=== PATIENT | female | born 1990 | race American Indian/Alaskan Native ===

== ENCOUNTER 2017-07-24 13:25 | Emergency (ER) | payer BC, OTHER ==
[2017-07-24 13:34] VITALS: BP 131/65
[2017-07-24 14:37] LABS: Basophils % (Auto) 0.5 % (0.0-1.8); Eosinophils % (Auto) 0.3 % (0.0-4.3); Hematocrit 34.7 % (30.3-42.9); Hemoglobin 10.7 gm/dl (10.1-14.3); Mean Corpuscular HGB Conc 31 % (30-34); Mean Corpuscular Hemoglobin 21 pg (28-32); Mean Corpuscular Volume 67 fl (79-97); Platelet Count 272 K/mm3 (140-440); Red Blood Count 5.17 M/mm3 (3.65-5.03); Red Cell Distribution Width 20.1 % (13.2-15.2); White Blood Count 8.4 K/mm3 (4.5-11.0)
[2017-07-24 14:45] LABS: Alanine Aminotransferase 9 units/L (7-56); Albumin 4.1 g/dL (3.9-5); Albumin/Globulin Ratio 1.2 %; Alkaline Phosphatase 96 units/L (35-129); Anion Gap 18 mmol/L; BUN/Creatinine Ratio 14; Blood Urea Nitrogen 10 mg/dL (7-17); Calcium 9.2 mg/dL (8.4-10.2); Carbon Dioxide 21 mmol/L (22-30); Chloride 103.4 mmol/L (98-107); Glucose 93 mg/dL (65-100); Lipase 46 units/L (13-60); Potassium 4.2 mmol/L (3.6-5.0); Sodium 138 mmol/L (137-145); Total Protein 7.6 g/dL (6.3-8.2)
[2017-07-24 15:02] LABS: Bilirubin,Urine NEG (Negative); Blood,Urine MOD (Negative); Ketones,Urine NEG (Negative); Mucus,Urine FEW /HPF; Nitrite,Urine NEG (Negative); Protein,Urine <15 mg/dL mg/dL (Negative); Urobilinogen,Urine < 2.0 mg/dL (<2.0)
[2017-07-24 15:28] LABS: Bacteria,Urine 1+ /HPF (Negative); Leukocyte Esterase,Urine TR (Negative)
--- NOTE | 2017-07-24 17:34 | Emergency Department Report ---
ED Abdominal Pain HPI - General Chief Complaint: Abdominal Pain Stated Complaint: POSS UTI Time Seen by Provider: 07/24/17 17:01 Source: patient Mode of arrival: Ambulatory Limitations: No Limitations - History of Present Illness Initial Comments: 27-year-old female presents to the ED complaining about low back pain and lower abdominal pain with dysuria and urgency. States that symptoms started last night. States that she believes she may have a UTI. States that she also has frequency. Denies fever, flank pain, nausea, vomiting, diarrhea, vaginal bleeding, vaginal discharge. Denies taking medication. -: Gradual, days(s) (1) - Related Data Previous Rx's Medication Instructions Recorded Last Taken Type Ciprofloxacin HCl [Cipro] 500 mg PO BID #14 tablet 07/24/17 Unknown Rx Cyclobenzaprine [Flexeril] 10 mg PO TID PRN #20 tablet 07/24/17 Unknown Rx Ibuprofen [Motrin] 600 mg PO Q8H PRN #20 tablet 07/24/17 Unknown Rx Allergies Allergy/AdvReac Type Severity Reaction Status Date / Time egg Allergy Vomiting Verified 07/24/17 13:34 Sulfa (Sulfonamide Allergy Unknown Verified 07/24/17 13:34 Antibiotics) ED Review of Systems ROS: Stated complaint: POSS UTI Other details as noted in HPI Constitutional: denies: chills, fever Eyes: denies: eye pain, eye discharge, vision change ENT: denies: ear pain, throat pain Respiratory: denies: cough, shortness of breath, wheezing Cardiovascular: denies: chest pain, palpitations Endocrine: no symptoms reported Gastrointestinal: abdominal pain. denies: nausea, diarrhea Genitourinary: dysuria. denies: urgency, discharge Musculoskeletal: back pain. denies: joint swelling, arthralgia Skin: denies: rash, lesions Neurological: denies: headache, weakness, paresthesias Psychiatric: denies: anxiety, depression Hematological/Lymphatic: denies: easy bleeding, easy bruising ED Past Medical Hx - Past Medical History Previous Medical History?: Yes Additional medical history: MIGRAINES, PCOS - Surgical History Past Surgical History?: Yes Additional Surgical History: C SECTION X3, ENOC - Social History Smoking Status: Never Smoker Substance Use Type: Alcohol - Medications Home Medications: Home Medications Medication Instructions Recorded Confirmed Last Taken Type Ciprofloxacin HCl [Cipro] 500 mg PO BID #14 tablet 07/24/17 Unknown Rx Cyclobenzaprine [Flexeril] 10 mg PO TID PRN #20 tablet 07/24/17 Unknown Rx Ibuprofen [Motrin] 600 mg PO Q8H PRN #20 tablet 07/24/17 Unknown Rx ED Physical Exam - General Limitations: No Limitations General appearance: alert, in no apparent distress - Head Head exam: Present: atraumatic, normocephalic - Eye Eye exam: Present: normal appearance - ENT ENT exam: Present: mucous membranes moist - Neck Neck exam: Present: normal inspection - Respiratory Respiratory exam: Present: normal lung sounds bilaterally. Absent: respiratory distress - Cardiovascular Cardiovascular Exam: Present: regular rate, normal rhythm. Absent: systolic murmur, diastolic murmur, rubs, gallop - GI/Abdominal GI/Abdominal exam: Present: soft, tenderness (suprapubic), normal bowel sounds. Absent: distended, guarding, rebound, rigid - Extremities Exam Extremities exam: Present: normal inspection - Back Exam Back exam: Present: normal inspection, paraspinal tenderness. Absent: CVA tenderness (R), CVA tenderness (L), muscle spasm, vertebral tenderness - Neurological Exam Neurological exam: Present: alert, oriented X3 - Psychiatric Psychiatric exam: Present: normal affect, normal mood - Skin Skin exam: Present: warm, dry, intact, normal color. Absent: rash ED Course Vital Signs 07/24/17 13:31 Temperature 97.5 F L Pulse Rate 90 Respiratory 18 Rate Blood Pressure 131/65 O2 Sat by Pulse 99 Oximetry ED Medical Decision Making - Lab Data Result diagrams: 07/24/17 14:05 07/24/17 14:05 Vital Signs 07/24/17 13:31 Temperature 97.5 F L Pulse Rate 90 Respiratory 18 Rate Blood Pressure 131/65 O2 Sat by Pulse 99 Oximetry Laboratory Results - last 24 hr 07/24/17 07/24/17 07/24/17 14:05 14:05 Unknown WBC 8.4 RBC 5.17 H Hgb 10.7 Hct 34.7 MCV 67 L MCH 21 L MCHC 31 RDW 20.1 H Plt Count 272 Lymph % (Auto) 33.8 Casey % (Auto) 6.9 Eos % (Auto) 0.3 Baso % (Auto) 0.5 Lymph # 2.8 Casey # 0.6 Eos # 0.0 Baso # 0.0 Seg Neutrophils % 58.5 Seg Neutrophils # 4.9 Sodium 138 Potassium 4.2 Chloride 103.4 Carbon Dioxide 21 L Anion Gap 18 BUN 10 Creatinine 0.7 Estimated GFR > 60 BUN/Creatinine Ratio 14 Glucose 93 Calcium 9.2 Total Bilirubin 0.70 AST 30 ALT 9 Alkaline Phosphatase 96 Total Protein 7.6 Albumin 4.1 Albumin/Globulin Ratio 1.2 Lipase 46 Urine Color Yellow Urine Turbidity Clear Urine pH 6.0 Ur Specific [place] 1.019 Urine Protein <15 mg/dl Urine Glucose (UA) Neg Urine Ketones Neg Urine Blood Mod Urine Nitrite Neg Urine Bilirubin Neg Urine Urobilinogen < 2.0 Ur Leukocyte Esterase Tr Urine WBC (Auto) 1.0 Urine RBC (Auto) 1.0 U Epithel Cells (Auto) 11.0 Urine Bacteria (Auto) 1+ Urine Mucus Few Urine HCG, Qual Negative - Medical Decision Making Patient is resting comfortably at this time. Tenderness was only to the lower back and flank area. Very minimal tenderness to the lower abdomen. Chin has 1 + leukocyte in her urine with hematuria. Will start on Cipro as patient is requesting treatment for UTI. No acute distress at this time. - Differential Diagnosis pyelo, kidney stone Critical care attestation.: If time is entered above; I have spent that time in minutes in the direct care of this critically ill patient, excluding procedure time. ED Disposition Clinical Impression: Low back pain, Hematuria, Dysuria Disposition: DC-01 TO HOME OR SELFCARE Is pt being admited?: No Does the pt Need Aspirin: No Condition: Good Instructions: Abdominal Pain (ED) Prescriptions: Ciprofloxacin HCl [Cipro] 500 mg PO BID #14 tablet Cyclobenzaprine [Flexeril] 10 mg PO TID PRN #20 tablet PRN Reason: Muscle Spasm Ibuprofen [Motrin] 600 mg PO Q8H PRN #20 tablet PRN Reason: Pain Referrals: PRIMARY CARE, [Primary Care Provider] - 3-5 Days Forms: Work/School Release Form(ED) Time of Disposition: 17:37
== END 2017-07-24 17:43 | disposition home or self-care (01) ==
LOC: ED 13:25
DX: M54.5 Low back pain (principal); R31.9 Hematuria, unspecified; R30.0 Dysuria; Z88.2 Allergy status to sulfonamides; Z91.012 Allergy to eggs
CPT/HCPCS: 36415; 80053; 81001; 81025; 83690; 85025; 99283

== ENCOUNTER 2017-08-15 08:15 | Emergency (ER) | payer BC ==
[2017-08-15 08:57] LABS: Basophils % (Auto) 0.3 % (0.0-1.8); Eosinophils % (Auto) 0.8 % (0.0-4.3); Hematocrit 36.4 % (30.3-42.9); Hemoglobin 11.4 gm/dl (10.1-14.3); Mean Corpuscular HGB Conc 31 % (30-34); Platelet Count 296 K/mm3 (140-440); Red Blood Count 5.32 M/mm3 (3.65-5.03)
[2017-08-15 09:13] LABS: Alanine Aminotransferase 12 units/L (7-56); Alkaline Phosphatase 96 units/L (35-129); Anion Gap 20 mmol/L; BUN/Creatinine Ratio 23; Blood Urea Nitrogen 14 mg/dL (7-17); Calcium 8.7 mg/dL (8.4-10.2); Carbon Dioxide 18 mmol/L (22-30); Chloride 102.4 mmol/L (98-107); Glucose 86 mg/dL (65-100); Lipase 60 units/L (13-60); Potassium 4.1 mmol/L (3.6-5.0); Sodium 136 mmol/L (137-145); Total Protein 7.9 g/dL (6.3-8.2)
[2017-08-15 09:16] LABS: Mean Corpuscular Hemoglobin 21 pg (28-32); Mean Corpuscular Volume 68 fl (79-97); Red Cell Distribution Width 20.6 % (13.2-15.2)
[2017-08-15 09:45] LABS: Bilirubin,Urine NEG (Negative); Blood,Urine SM (Negative); Ketones,Urine NEG (Negative); Leukocyte Esterase,Urine NEG (Negative); Nitrite,Urine NEG (Negative); Protein,Urine <15 mg/dL mg/dL (Negative); Urobilinogen,Urine < 2.0 mg/dL (<2.0); WBC,Urine < 1.0 /HPF (0.0-6.0)
--- NOTE | 2017-08-15 10:09 | Emergency Department Report ---
Chief Complaint: Abdominal Pain Stated Complaint: ABDOMINAL PAIN Time Seen by Provider: 08/15/17 10:05 - HPI History of Present Illness: 27-year-old female with a history of gallbladder removal in 2014 presents to the ED complaining of generalized upper abdominal pain times 6 AM this morning. Patient reports eating dinner last night with no problem. She states watery nonbloody diarrhea about 4 episodes today she admits nausea She denies fevers/chills/dysuria/vaginal bleeding - ROS Review of Systems: See HPI - Exam Vital Signs: Vital Signs 08/15/17 08:20 Temperature 98.2 F Pulse Rate 75 Respiratory 18 Rate Blood Pressure 119/71 O2 Sat by Pulse 98 Oximetry Physical Exam: GENERAL: Alert and oriented x3, mild distress, Normal Gait, atraumatic. ABDOMEN: No organomegaly was noted,Positive bowel sounds, soft, and non- distended. . tender to palpation on left and right upper quadrant NO CVA tenderness. SKIN: Warm and dry, No lesions, No ulceration or induration present. MSE screening note: Focused history and physical exam performed. Due to findings the following was ordered: ED Medical Decision Making - Lab Data Result diagrams: 08/15/17 08:41 08/15/17 08:41 - Medical Decision Making Labs and normal limit, chemistry, low sodium Abdominal ultrasound ordered. Zofran and Tylenol ordered Patient waited to be seen by ED physician ED Disposition for MSE Condition: Stable Instructions: Abdominal Pain (ED) Referrals: PRIMARY CARE, [Primary Care Provider] - 3-5 Days
[2017-08-15] MEDS: TYLENOL PO ONE (10:29)
[2017-08-15] MEDS: ZOFRAN ODT PO ONE (10:30)
--- NOTE | 2017-08-15 11:20 | Ultrasound Report ---
ULTRASOUND ABDOMEN COMPLETE INDICATION: Abdominal pain. Cholecystectomy in 2015. COMPARISON: None similar at this institution. FINDINGS: Abdominal ultrasound demonstrates normal imaged liver, approximately 17.5 cm craniocaudal. Gallbladder surgically absent. Patient though tender during imaging. CBD is 3.5 mm. Homogenous spleen, 8.4 cm in length. No ascites. Pancreas, IVC and nonaneurysmal abdominal aorta within normal limits. No hydronephrosis. Right kidney is 10.2 x 4.7 x 4 cm with cortical thickness of 0.7 cm. Left kidney is 10 x 5.9 x 5.3 cm with cortical thickness of 1.1 cm. CONCLUSION: No acute abdominal sonographic abnormality in this patient with prior cholecystectomy. Patient though demonstrated tenderness during examination. Please correlate. Thank you for the opportunity to participate in this patient's care.
--- NOTE | 2017-08-15 11:37 | Emergency Department Report ---
ED Abdominal Pain HPI - General Chief Complaint: Abdominal Pain Stated Complaint: ABDOMINAL PAIN Time Seen by Provider: 08/15/17 10:00 Source: patient Mode of arrival: Ambulatory Limitations: No Limitations - History of Present Illness Initial Comments: 27 yo female with c/o abdominal pain that began at 0630 this am. She was nauseated and did not vomit but had 4 bowel movements that were grainey in texture. SHE HAD HER GALLBLADDER REMOVED ABOUT 3YRS AGO AND SAYS THAT THIS IS THE SAME PAIN. MD Complaint: abdominal pain -: Sudden, hour(s) (3.5) Location: RUQ Radiation: none Migration to: no migration Severity: moderate Severity scale (0 -10): 6 Quality: aching, dull Consistency: intermittent Improves With: rest Worsens With: movement, other (PALPATION) Associated Symptoms: nausea. denies: vomiting, diarrhea, fever, chills, hematemesis, hematochezia, melena, hematuria, anorexia, syncope - Related Data Home Medications Medication Instructions Recorded Confirmed Last Taken Cyclobenzaprine [Flexeril] 10 mg PO DAILY PRN 08/15/17 08/15/17 Unknown Norethindrone-Ethinyl Estrad 1 each PO DAILY 08/15/17 08/15/17 Unknown [Balziva] Previous Rx's Medication Instructions Recorded Last Taken Type Dicyclomine [Bentyl] 20 mg PO QID #14 tablet 08/15/17 Unknown Rx Allergies Allergy/AdvReac Type Severity Reaction Status Date / Time egg Allergy Vomiting Verified 07/24/17 13:34 ibuprofen Allergy Hives Verified 07/24/17 13:22 Sulfa (Sulfonamide Allergy Unknown Verified 07/24/17 13:34 Antibiotics) ED Review of Systems ROS: Stated complaint: ABDOMINAL PAIN Other details as noted in HPI Constitutional: denies: chills, fever Eyes: denies: eye pain, eye discharge, vision change ENT: denies: ear pain, throat pain Respiratory: denies: cough, shortness of breath, wheezing Cardiovascular: denies: chest pain, palpitations Endocrine: no symptoms reported Gastrointestinal: nausea, other (4 grainey bowel movement). denies: abdominal pain, vomiting, diarrhea Genitourinary: denies: urgency, dysuria, discharge Musculoskeletal: denies: back pain, joint swelling, arthralgia Skin: denies: rash, lesions Neurological: denies: headache, weakness, paresthesias Psychiatric: denies: anxiety, depression Hematological/Lymphatic: denies: easy bleeding, easy bruising ED Past Medical Hx - Past Medical History Hx GERD: Yes Additional medical history: MIGRAINES, PCOS - Surgical History Additional Surgical History: C SECTION X3, ENOC - Social History Smoking Status: Never Smoker Substance Use Type: Alcohol - Medications Home Medications: Home Medications Medication Instructions Recorded Confirmed Last Taken Type Cyclobenzaprine [Flexeril] 10 mg PO DAILY PRN 08/15/17 08/15/17 Unknown History Dicyclomine [Bentyl] 20 mg PO QID #14 tablet 08/15/17 Unknown Rx Norethindrone-Ethinyl Estrad 1 each PO DAILY 08/15/17 08/15/17 Unknown History [Balziva] ED Physical Exam - General Limitations: No Limitations General appearance: alert, in no apparent distress - Head Head exam: Present: atraumatic, normocephalic - Eye Eye exam: Present: normal appearance, EOMI. Absent: scleral icterus, conjunctival injection - ENT ENT exam: Present: mucous membranes moist - Neck Neck exam: Present: normal inspection, full ROM - Respiratory Respiratory exam: Present: normal lung sounds bilaterally. Absent: respiratory distress, wheezes, rales, decreased breath sounds, prolonged expiratory - Cardiovascular Cardiovascular Exam: Present: regular rate, normal rhythm, normal heart sounds - GI/Abdominal GI/Abdominal exam: Present: soft, tenderness (right upper quadrant), guarding, normal bowel sounds, hernia (ventral hernia-large). Absent: rebound, rigid, mass, bruit, pulsatile mass - Rectal Rectal exam: Present: deferred - Back Exam Back exam: Present: normal inspection, full ROM, other (tattoo) - Neurological Exam Neurological exam: Present: alert, oriented X3, CN II-XII intact - Psychiatric Psychiatric exam: Present: normal affect, normal mood - Skin Skin exam: Present: warm, dry, intact, normal color, other (tattoos). Absent: rash ED Course Vital Signs 08/15/17 08/15/17 08/15/17 08:20 10:29 11:33 Temperature 98.2 F Pulse Rate 75 61 Respiratory 18 20 Rate Blood Pressure 119/71 Blood Pressure 101/72 [Left] O2 Sat by Pulse 98 Oximetry 10/31/17 14:40 Temperature Pulse Rate 62 Respiratory 18 Rate Blood Pressure Blood Pressure 109/64 [Left] O2 Sat by Pulse 97 Oximetry ED Medical Decision Making - Lab Data Result diagrams: 08/15/17 08:41 08/15/17 08:41 - Radiology Data Radiology results: report reviewed (CT ABD/PELVIS; NEGATIVE ; US OF RUQ: NEGATIVE V/Q SCAN ; NORMAL LUNGS) - Medical Decision Making CT OF ABD/PELVIS NEGATIVE WELL US OF RUQ AND ELEVATED DDIMER MIN S NORMAL V /Q SCAN Critical care attestation.: If time is entered above; I have spent that time in minutes in the direct care of this critically ill patient, excluding procedure time. ED Disposition Clinical Impression: Abdominal pain Qualifiers: Abdominal location: right upper quadrant Qualified Code(s): R10.11 - Right upper quadrant pain Disposition: DC-01 TO HOME OR SELFCARE Is pt being admited?: No Does the pt Need Aspirin: No Condition: Stable Instructions: Abdominal Pain (ED) Prescriptions: Dicyclomine [Bentyl] 20 mg PO QID #14 tablet Referrals: PRIMARY CARE, [Primary Care Provider] - 3-5 Days Forms: Work/School Release Form(ED) Time of Disposition: 18:33
[2017-08-15] MEDS ORDERED: NACL 0.9% 1000 ML 1,000 ML ONE (11:39)
[2017-08-15] MEDS: NACL 0.9% 1000 ML 1,000 ML IV ONE (11:39)
[2017-08-15] MEDS: MORPHINE IV ONE ×2 (12:15→18:43)
--- NOTE | 2017-08-15 12:58 | Cat Scan Report ---
CT SCAN OF THE ABDOMEN AND PELVIS WITH CONTRAST: HISTORY: Right upper quadrant abdominal pain. TECHNIQUE: Helical CT in 1.25mm intervals following IV contrast. Sagittal and coronal reconstructions. FINDINGS: The liver is normal in size and is without focal defect. No gallstones or biliary dilatation are noted. Cholecystectomy changes. The spleen and pancreas demonstrate a normal size and attenuation with no evidence of abnormal mass. The kidneys are normal in size and position with no evidence of hydronephrosis or mass. The adrenal glands are normal. The abdominal aorta is normal. The bowel loops are within normal limits given no oral contrast was administered. No evidence for obstruction or focal inflammation. The appendix is not confidently identified. The uterus and adnexa are within normal limits. There is no evidence of peritoneal air or fluid. There is no evidence of any abnormal masses or fluid collections within the pelvis. No adenopathy is identified. The bladder is normal. IMPRESSION: Unremarkable CT scan of the abdomen and pelvis with contrast.
[2017-08-15 14:41] VITALS: BP 109/64
--- NOTE | 2017-08-15 18:16 | Nuclear Medicine Report ---
FINAL REPORT PROCEDURE: Nuclear medicine ventilation and perfusion lung scan. TECHNIQUE: Ventilation imaging was done in the posterior projection using 15 millicuries of xenon 133 gas. Perfusion imaging was done in multiple projections using 5 millicuries of technetium 99 M maa. HISTORY: Elevated D-dimer, rule out pulmonary embolism. COMPARISON: Comparison chest radiograph 08/15/2017. FINDINGS: There is symmetrical, homogeneous ventilation bilaterally. There is no trapping of xenon gas during the washout phase of the study. The perfusion images are also homogeneous. There are no perfusion defects identified. The lung scan is normal and carries an extremely low probability of pulmonary embolism. IMPRESSION: Normal lung scan.
--- NOTE | 2017-08-16 07:10 | XRay Report ---
Chest 2 views: History: Epigastric pain. Findings: Normal cardiomediastinal silhouette. Trachea is midline. No consolidation, pneumothorax or pleural effusion. Impression: No acute cardiopulmonary findings
== END 2017-08-15 19:06 | disposition home or self-care (01) ==
LOC: ED 08:15
DX: R10.11 Right upper quadrant pain (principal); K21.9 Gastro-esophageal reflux disease without esophagitis; G43.909 Migraine, unspecified, not intractable, without status migrainosus; Z88.2 Allergy status to sulfonamides; Z88.8 Allergy status to other drugs, medicaments and biological substances; Z91.012 Allergy to eggs
CPT/HCPCS: 36415; 71020; 74177; 76700; 78582; 80053; 81001; 83690; 84703; 85025; 85379; 96361; 96374; 96376; 99284; A9540; A9558; J2270; J7030; Q9967; Q0162

== ENCOUNTER 2017-12-13 08:29 | Day surgery (SDC) | payer BC ==
[2017-12-13] MEDS ORDERED: NACL 0.9% 1000 ML 1,000 ML IV SCH (09:00)
[2017-12-13] MEDS ORDERED: WATER FOR IRRIG STERILE IR ONE (09:04)
[2017-12-13] MEDS ORDERED: DIPRIVAN 10 MG/ML IV ONE (10:14)
[2017-12-13] MEDS ORDERED: ZOFRAN ONE (10:19)
--- NOTE | 2017-12-13 10:29 | Post Operative Note ---
Pre-op diagnosis: intractable nausea, abdominal pain Post-op diagnosis: other (mild duodenitis, otherwise unremarkable egd) Findings: EGD with biopsies: Mild erythematous mucosa in duodenum, otherwise unremarkable egd. gastric biopsied obtained to rule out h pylori. Procedure: EGD with biopsies Anesthesia: MAC Surgeon: THERESA ANGLIN Estimated blood loss: minimal Pathology: list (Jar A - gastric biopsies) Specimen disposition: to lab Condition: stable Disposition: same day
--- NOTE | 2017-12-13 10:32 | Operative Report ---
Operative Report Operative Report: Esophagogastroduodenoscopy Procedure Report with Biopsies Date of procedure: 12/13/2017 Endoscopist: Miguel Burns Pre-op diagnosis/indication: intractable nausea, abdominal pain Post-op diagnosis: Mild duodenitis, otherwise unremarkable upper endoscopy MEDICATIONS: MAC COMPLICATIONS: No immediate complications ESTIMATED BLOOD LOSS: minimal DESCRIPTION OF PROCEDURE: After consent was obtained, the patient was placed in the left lateral decubitis position. The upper fujinon endoscope was passed with direct vision through the mouth and advanced to the 2nd portion of the duodenum without difficulty. The mucosal views were good. The patient tolerated the procedure well. The patient's vital signs were monitored continuously throughout the procedure. FINDINGS: The esophagus appeared normal. The stomach appeared normal. Random gastric biopsies were obtained to evaluate for H pylori. Mild erythematous mucosa in the 2nd portion of duodenum, otherwise the duodenum appeared normal. No evidence of gastric outlet obstruction of peptic ulcer disease. IMPRESSION: 1. Mild duodenitis, otherwise unremarkable upper endoscopy. Gastric biopsies obtained to evaluate for H pylori. RECOMMENDATIONS: -follow-up pathology -continue current medications -further studies per clinic note -follow up as scheduled in GI clinic
--- NOTE | 2017-12-13 10:43 | Anesthesia Consultation ---
Anesthesia Consult and Med Hx Date of service: 12/13/17 - Airway Anesthetic Teeth Evaluation: Good ROM Head & Neck: Adequate Mental/Hyoid Distance: Adequate Mallampati Class: Class I Intubation Access Assessment: Good - Pulmonary Exam CTA: Yes - Cardiac Exam Cardiac Exam: RRR - Pre-Operative Health Status ASA Pre-Surgery Classification: ASA1 Proposed Anesthetic Plan: MAC - Pre-Anesthesia Comment Pre-Anesthesia Comments: Nausea - Hematic Hx Anemia: Yes
--- NOTE | 2017-12-13 10:43 | Anesthesia Day of Surgery ---
Anesthesia Day of Surgery - Day of Surgery Patient Examined: Yes Patient H&P Reviewed: Yes Patient is NPO: Yes
[2017-12-13 11:28] VITALS: BP 106/72
== END 2017-12-13 08:30 | disposition home or self-care (01) ==
LOC: GIO 08:29
PROVIDERS: ATTEND Internal Medicine Gastroenterology
DX: K29.80 Duodenitis without bleeding (principal); K21.9 Gastro-esophageal reflux disease without esophagitis; E66.9 Obesity, unspecified; Z68.36 Body mass index [BMI] 36.0-36.9, adult; Z88.2 Allergy status to sulfonamides; Z91.012 Allergy to eggs
CPT/HCPCS: 43239; 81025; 88305; 88342; J2405; J2704; J7030

== ENCOUNTER 2018-01-16 07:19 | Outpatient (CLI) | payer BC ==
--- NOTE | 2018-01-16 10:03 | Nuclear Medicine Report ---
NUCLEAR MEDICINE GASTRIC EMPTYING SCAN History: Abdominal pain. Findings: Anterior scintigraphic images were obtained for 90 minutes following 1 mCi of technetium 99m sulfur colloid in oatmeal. Half life for gastric emptying measures 50 minutes. There is no scintigraphic evidence for reflux disease. Impression: Normal gastric emptying.
== END 2018-01-16 07:20 | disposition home or self-care (01) ==
LOC: NM 07:19
PROVIDERS: ATTEND Internal Medicine Gastroenterology
DX: K59.00 Constipation, unspecified (principal); E66.9 Obesity, unspecified
CPT/HCPCS: 78264; A9541

== ENCOUNTER 2018-05-02 14:04 | Outpatient (CLI) | payer BC ==
--- NOTE | 2018-05-02 15:38 | Magnetic Resonance Report ---
MRI THORACIC SPINE WITHOUT CONTRAST HISTORY: Chronic pain syndrome, radiculopathy. TECHNIQUE: Axial T1 and T2. Sagittal T1, T2 and STIR. COMPARISON: None. FINDINGS: The thoracic spinal cord is normal size and signal intensity throughout. The conus terminates at the inferior endplate of L1. No signal abnormality or mass. No bulging disc or canal stenosis. The thoracic vertebral bodies, disc spaces, posterior elements, spinal canal and neural foramen are unremarkable. Normal paraspinal soft tissues. IMPRESSION: Normal MRI of the thoracic spine.
== END 2018-05-02 14:05 | disposition home or self-care (01) ==
LOC: MRI 14:04
PROVIDERS: ATTEND Anesthesiology Pain Medicine
DX: M54.14 Radiculopathy, thoracic region (principal); G89.4 Chronic pain syndrome; D64.9 Anemia, unspecified
CPT/HCPCS: 72146

== ENCOUNTER 2018-05-10 08:51 | Emergency (ER) | payer BC ==
[2018-05-10 09:00] VITALS: BP 115/80
--- NOTE | 2018-05-10 10:13 | Emergency Department Report ---
Abscess Boil HPI - HPI Chief Complaint: Skin/Abscess/Foreign Body Stated Complaint: KNOT BEHIND EAR Time Seen by Provider: 05/10/18 10:12 Duration: Today Location: Head (left posterior) Severity: Moderate (05/25) History: Yes Pain (10), No Fever, No Purulent Drainage, No Numbness, No Foreign Body, No Previous History, No Insect Bite HPI: This is a 27-year-old female here reports that she has posterior left ear pain that started a couple days ago. She says is radiating up her left head., Reports some dizziness. Reports swollen without any redness. Denies any fever or chills. Denies any nausea or vomiting. No alleviating factors. Exacerbating factor is touching. Home Medications: Home Medications Medication Instructions Recorded Confirmed Last Taken Cyclobenzaprine [Flexeril] 10 mg PO DAILY PRN 08/15/17 12/13/17 Unknown Norethindrone-Ethinyl Estrad 1 each PO DAILY 08/15/17 12/13/17 Unknown [Domonique] Cymbalta 60 mg PO DAILY 12/13/17 12/13/17 12/12/17 Hydrocodon-Acetamin 7.5-325/15 1 tab PO PRN PRN 12/13/17 12/13/17 12/12/17 Linzess 145 mg PO DAILY 12/13/17 12/13/17 12/12/17 Protonix TAB 40 mg PO DAILY 12/13/17 12/13/17 12/12/17 Xanax 1 mg PO PRN PRN 12/13/17 12/13/17 12/09/17 traZODone 200 mg PO HS 12/13/17 12/13/17 12/11/17 Previous Rx's Medication Instructions Recorded Last Taken Type Dicyclomine [Bentyl] 20 mg PO QID #14 tablet 08/15/17 Unknown Rx Omeprazole Magnesium [Prilosec Otc] 20 mg PO QDAY #10 tablet.dr 08/15/17 Unknown Rx Sucralfate [Carafate] 1 gm PO Q6HR #60 udc 08/15/17 Unknown Rx Acetaminophen/Codeine [Tylenol 1 tab PO Q6H PRN #14 tab 05/10/18 Unknown Rx /Codeine # 3 tab] Cephalexin [Keflex] 500 mg PO Q8HR 10 Days #30 cap 05/10/18 Unknown Rx Allergies/Adverse Reactions: Allergies Allergy/AdvReac Type Severity Reaction Status Date / Time egg Allergy Vomiting Verified 07/24/17 13:34 ibuprofen Allergy Hives Verified 07/24/17 13:22 Sulfa (Sulfonamide Allergy Unknown Verified 12/13/17 08:35 Antibiotics) ED Review of Systems ROS: Stated complaint: KNOT BEHIND EAR Other details as noted in HPI Constitutional: denies: chills, fever Eyes: denies: eye pain, eye discharge, vision change ENT: ear pain. denies: throat pain, congestion Respiratory: denies: cough, shortness of breath, SOB with exertion, SOB at rest , wheezing Cardiovascular: denies: chest pain, palpitations, edema, syncope Gastrointestinal: denies: abdominal pain, nausea, diarrhea Musculoskeletal: denies: back pain, joint swelling, arthralgia Skin: other (report abscess to the posterior left ear). denies: rash, lesions Neurological: paresthesias, vertigo. denies: headache, weakness ED Past Medical Hx - Past Medical History Previous Medical History?: Yes Hx GERD: Yes Additional medical history: MIGRAINES, PCOS, fibromylagia - Surgical History Past Surgical History?: Yes Hx Cholecystectomy: Yes Additional Surgical History: C SECTION X3, ENOC - Family History Family history: hypertension - Social History Smoking Status: Never Smoker Substance Use Type: Alcohol - Medications Home Medications: Home Medications Medication Instructions Recorded Confirmed Last Taken Type Cyclobenzaprine [Flexeril] 10 mg PO DAILY PRN 08/15/17 12/13/17 Unknown History Dicyclomine [Bentyl] 20 mg PO QID #14 tablet 08/15/17 12/13/17 Unknown Rx Norethindrone-Ethinyl Estrad 1 each PO DAILY 08/15/17 12/13/17 Unknown History [Balziva] Omeprazole Magnesium [Prilosec Otc] 20 mg PO QDAY #10 tablet. 08/15/17 Unknown Rx Sucralfate [Carafate] 1 gm PO Q6HR #60 udc 08/15/17 12/13/17 Unknown Rx Cymbalta 60 mg PO DAILY 12/13/17 12/13/17 12/12/17 History Hydrocodon-Acetamin 7.5-325/15 1 tab PO PRN PRN 12/13/17 12/13/17 12/12/17 History Linzess 145 mg PO DAILY 12/13/17 12/13/17 12/12/17 History Protonix TAB 40 mg PO DAILY 12/13/17 12/13/17 12/12/17 History Xanax 1 mg PO PRN PRN 12/13/17 12/13/17 12/09/17 History traZODone 200 mg PO HS 12/13/17 12/13/17 12/11/17 History Acetaminophen/Codeine [Tylenol 1 tab PO Q6H PRN #14 tab 05/10/18 Unknown Rx /Codeine # 3 tab] Cephalexin [Keflex] 500 mg PO Q8HR 10 Days #30 cap 05/10/18 Unknown Rx ED Abscess Boil Physical Exam - Exam General: Vital signs noted. No distress. Alert and acting appropriately. This is a 27-year-old female here, well-nourished well-developed distress. Front/Back of Body, Lg (Color): 1 - 2 cm indurated, minimal fluctuance to the occipital area. Tender to palpate without any erythema. No crest then. Size: 2 cm Exam: Yes Tenderness (posterior distal occipital area), Yes Fluctuance (minimal) , Yes Normal Neurologic Exam (alert and oriented 3, normal gait and normal speech.), Yes Normal Circulation (No cce. + 2 pulses in all extremities, no neurovascular compromise), No Surrounding Cellulites/Erythema, No Lymphangitis, No Crepitation, No Heart Murmur (S1, S2. Regular rate) Exam: Mouth: Normal exam. Uvula midline and oral airways patent. Mouth is moist. Lungs: Clear to auscultate bilaterally, no rhonchi wheezes or rales. I & D Note - I & D Note I & D Note: Abscess: Simple abscess cleansed with normal saline and iodine followed by alcohol wipe. Small 20-gauge needle placed the site with patient's permission. Small opening made and clear fluid drained from the area. No further induration but some tenderness to palpate. Tetanus vaccine is updated. Area cleansed with normal saline and Band-Aid dressing placed the site and antibiotic Keflex started ED Course Vital Signs 05/10/18 08:57 Temperature 98.4 F Pulse Rate 79 Respiratory 17 Rate Blood Pressure 115/80 O2 Sat by Pulse 99 Oximetry - Reevaluation(s) Reevaluation #1: 05/10/18 11:29 Patient given Motrin 800 mg by mouth to relieve pain, posterior extension 0.5 mL to update tetanus and Keflex 500 mg by mouth Critical care attestation.: If time is entered above; I have spent that time in minutes in the direct care of this critically ill patient, excluding procedure time. ED Disposition Clinical Impression: Scalp cyst Disposition: [id number] TO HOME OR SELFCARE Is pt being admited?: No Does the pt Need Aspirin: No Condition: Stable Instructions: Skin Pseudocyst (ED) Additional Instructions: Please see discharge instruction in acute wound care Apply warm compresses to affected area 4 times a day to facilitate then and increased drainage Keep affected area clean and dry Take Tylenol 3 for pain but iplease do not drive or operate heavy machinery while taking this medication as it causes drowsiness Take Keflex as prescribed Return to the emergency room if, he developed fever, chills, increased pain and drainage from site, nausea and vomited, increase in redness and/or weakness. A Referrals: PRIMARY CAREMD [Primary Care Provider] - 05/11/18 Forms: Work/School Release Form(ED)
[2018-05-10] MEDS ORDERED: ULTRAM PO ONE (10:15)
[2018-05-10] MEDS ORDERED: KEFLEX ONE (10:19)
[2018-05-10] MEDS ORDERED: BOOSTRIX IM ONE ×2 (10:20→10:21)
[2018-05-10] MEDS ORDERED: KEFLEX PO ONE (10:21)
== END 2018-05-10 11:42 | disposition home or self-care (01) ==
LOC: ED 08:51
DX: L72.3 Sebaceous cyst (principal); K21.9 Gastro-esophageal reflux disease without esophagitis; G43.909 Migraine, unspecified, not intractable, without status migrainosus; Z90.49 Acquired absence of other specified parts of digestive tract; Z88.2 Allergy status to sulfonamides; Z88.6 Allergy status to analgesic agent; Z91.012 Allergy to eggs
CPT/HCPCS: 90471; 90715; 99282

== ENCOUNTER 2018-10-24 10:08 | Outpatient (CLI) | payer BC ==
--- NOTE | 2018-10-24 11:47 | Magnetic Resonance Report ---
MRI UPPER EXTREMITY JOINT LEFT WITHOUT CONTRAST HISTORY: Pain in left shoulder. TECHNIQUE: Multisequence, multiplanar MRI without contrast. COMPARISON: No relevant comparison at this facility. FINDINGS: The bone marrow signal throughout the visualized left shoulder is within normal limits. There is no evidence for fracture, bone lesion or abnormal bone marrow edema. No joint pathology is detected. There is minimal increased signal and thickening in the distal supraspinatus tendon at the level of the acromion. A small acromial spur is identified in this area. This appears to represent mild tendinosis of the distal supraspinatus tendon. No tear is identified. The subscapularis, infraspinatus and teres minor tendons are normal. The biceps tendon and its anchor upon the superior labrum is intact. No labral abnormality is detected. No joint effusion is identified. Trace fluid is noted in the subacromial bursa. IMPRESSION: Mild tendinosis of the distal supraspinatus tendon is suspected. No tear is appreciated. Small acromial spur. Trace fluid in the sub-acromial bursa.
== END 2018-10-24 10:09 | disposition home or self-care (01) ==
LOC: MRI 10:08
PROVIDERS: ATTEND Orthopaedic Surgery
DX: M75.82 Other shoulder lesions, left shoulder (principal); M77.9 Enthesopathy, unspecified; K21.9 Gastro-esophageal reflux disease without esophagitis; Z90.49 Acquired absence of other specified parts of digestive tract

== ENCOUNTER 2018-11-13 11:10 | Outpatient (CLI) | payer BC | END 2018-11-13 11:11 | disposition home or self-care (01) | LOC: LAB 11:10 | PROVIDERS: ATTEND Obstetrics & Gynecology | DX: Z01.419 Encounter for gynecological examination (general) (routine) without abnormal findings (principal); K21.9 Gastro-esophageal reflux disease without esophagitis; Z90.49 Acquired absence of other specified parts of digestive tract | CPT/HCPCS: 36415 ==

== ENCOUNTER 2019-02-25 17:55 | Emergency (ER) | payer BC ==
[2019-02-25 18:13] VITALS: BP 117/74
[2019-02-25] MEDS ORDERED: SOLU-Medrol IM ONE (19:31)
[2019-02-25] MEDS ORDERED: PEPCID PO ONE (19:32)
--- NOTE | 2019-02-25 20:16 | Emergency Department Report ---
HPI - General Chief Complaint: Allergic Reaction Time Seen by Provider: 02/25/19 19:10 - HPI HPI: Patient is a 28-year-old, AA female with a history of chronic IBS, depression, bipolar disorder, and fibromyalgia and presents to the ED with complaint of ac tracie onset persistent itchy diffuse erythematous maculopapular urticarial rashes in the last 3 days. Patient states that she has been taking Benadryl for itching but that the diffuse burning sensation has persisted. Patient states that initially she had facial swelling which has since resolved, but that the itching and burning sensation have been persistent. Patient states that the the rashes and itching are intermittent resolving whenever she takes Benadryl but continuously to flares up whenever Benadryl wears off. Patient denies shortness of breath, chest pain, nausea, vomiting, diarrhea, abdominal pain, dysphagia, dysphonia, swollen tongue, swollen lips, swollen throat, fever or chills. Patient states that the etiology of her symptoms is unknown but suspects a new medication that she began taking 4 days ago for IBS. ED Past Medical Hx - Past Medical History Previous Medical History?: Yes Hx GERD: Yes Hx Psychiatric Treatment: Yes (ADHD, anxiety) Additional medical history: MIGRAINES, PCOS, fibromylagia, IBS - Surgical History Past Surgical History?: Yes Hx Cholecystectomy: Yes Additional Surgical History: C SECTION X3 - Social History Smoking Status: Never Smoker Substance Use Type: Alcohol - Medications Home Medications: Home Medications Medication Instructions Recorded Confirmed Last Taken Type Cyclobenzaprine [Flexeril] 10 mg PO DAILY PRN 08/15/17 12/13/17 Unknown History Dicyclomine [Bentyl] 20 mg PO QID #14 tablet 08/15/17 12/13/17 Unknown Rx Norethindrone-Ethinyl Estrad 1 each PO DAILY 08/15/17 12/13/17 Unknown History [Balziva] Omeprazole Magnesium [Prilosec Otc] 20 mg PO QDAY #10 tablet. 08/15/17 Unknown Rx Sucralfate [Carafate] 1 gm PO Q6HR #60 udc 08/15/17 12/13/17 Unknown Rx Cymbalta 60 mg PO DAILY 12/13/17 12/13/17 12/12/17 History Hydrocodon-Acetamin 7.5-325/15 1 tab PO PRN PRN 12/13/17 12/13/17 12/12/17 History Linzess 145 mg PO DAILY 12/13/17 12/13/17 12/12/17 History Protonix TAB 40 mg PO DAILY 12/13/17 12/13/17 12/12/17 History Xanax 1 mg PO PRN PRN 12/13/17 12/13/17 12/09/17 History traZODone 200 mg PO HS 12/13/17 12/13/17 12/11/17 History Acetaminophen/Codeine [Tylenol 1 tab PO Q6H PRN #14 tab 05/10/18 Unknown Rx /Codeine # 3 tab] cephALEXin [Keflex] 500 mg PO Q8HR 10 Days #30 cap 05/10/18 Unknown Rx Topiramate [Topamax] 25 mg PO BID #14 tablet 09/11/18 Unknown Rx Topiramate [Topamax] 25 mg PO QHS #7 tablet 09/11/18 Unknown Rx HYDROcodone/APAP 5-325 [Crete 1 each PO Q6H PRN #12 tablet 09/19/18 Unknown Rx 5-325 mg TAB] Ranitidine HCl [Zantac] 150 mg PO Q12H #24 tablet 02/25/19 Unknown Rx methylPREDNISolone [Medrol] 4 mg PO DAILY #21 tab.ds.pk 02/25/19 Unknown Rx ED Review of Systems ROS: Stated complaint: ALLERGIC REACTION Other details as noted in HPI Comment: All other systems reviewed and negative Constitutional: no symptoms reported, see HPI. denies: chills, diaphoresis, fever, malaise, weakness Eyes: as per HPI. denies: eye pain, eye discharge, vision change ENT: as per HPI. denies: ear pain, throat pain, dental pain, hearing loss, epistaxis, congestion Respiratory: no symptoms reported, see HPI. denies: cough, orthopnea, shortness of breath, SOB with exertion, SOB at rest, stridor, wheezing Cardiovascular: as per HPI. denies: chest pain, palpitations, dyspnea on exertion, orthopnea, edema, paroxysmal nocturnal dyspnea Endocrine: no symptoms reported, see HPI. denies: excessive sweating, intolerance to cold, intolerance to heat, increased hunger, increased thirst, increased urine, unexplained weight loss Gastrointestinal: as per HPI. denies: abdominal pain, nausea, vomiting, diarrhea, constipation, hematemesis, hematochezia Genitourinary: as per HPI. denies: urgency, dysuria, frequency, hematuria, discharge, abnormal menses, dyspareunia Musculoskeletal: as per HPI. denies: back pain, joint swelling, arthralgia, myalgia Skin: as per HPI, rash, change in color, pruritus, other (Diffuse erythematous urticarial maculopapular rashes) Neurological: as per HPI. denies: headache, weakness, numbness, paresthesias, confusion, abnormal gait, vertigo Psychiatric: as per HPI Hematological/Lymphatic: as per HPI Physical Exam - Physical Exam Vital Signs: Vital Signs 02/25/19 18:09 Temperature 98 F Pulse Rate 67 Respiratory 15 Rate Blood Pressure 117/74 O2 Sat by Pulse 100 Oximetry General: Patient is alert and oriented 3, and is in no acute distress with normal vital signs. Physical Exam: Skin: Physical exam reveals mild diffuse erythematous maculopapular Urticarial rashes throughout. The rest of the physical exam is unremarkable for all systems Body Four View: 1 - diffuse erythematous urticarial rashes 2 - Diffuse erythematous maculopapular urticarial rashes ED Course Vital Signs 02/25/19 18:09 Temperature 98 F Pulse Rate 67 Respiratory 15 Rate Blood Pressure 117/74 O2 Sat by Pulse 100 Oximetry - Reevaluation(s) Reevaluation #1: 02/25/19 20:22 The patient is alert and oriented 3 and is not in any distress with normal vital signs. Patient was treated for acute allergic reaction with Solu-Medrol and Pepcid, and discharged home on Medrol Dosepak and Zantac prescriptions. Patient already has Benadryl at home, the last dose of which was 4 hours ago. Patient advised to follow-up with her primary care physician in 2-3 days for reevaluation. Patient is advised to stop taking the new medication that was recently prescribed for her for her IBS, and to follow up with a primary care physician as advised. Patient was advised to return to the ED immediately if symptoms get worse. ED Medical Decision Making - Medical Decision Making The patient is alert and oriented 3 and is not in any distress with normal vital signs. Patient was treated for acute allergic reaction with Solu-Medrol and Pepcid, and discharged home on Medrol Dosepak and Zantac prescriptions. Patient already has Benadryl at home, the last dose of which was 4 hours ago. Patient advised to follow-up with her primary care physician in 2-3 days for reevaluation. Patient is advised to stop taking the new medication that was recently prescribed for her for her IBS, and to follow up with a primary care physician as advised. Patient was advised to return to the ED immediately if symptoms get worse. - Differential Diagnosis Acute urticaria, Acute allergic reaction, Itching Critical care attestation.: If time is entered above; I have spent that time in minutes in the direct care of this critically ill patient, excluding procedure time. ED Disposition Clinical Impression: Acute urticaria, Itching with irritation Acute allergic reaction Qualifiers: Encounter type: initial encounter Qualified Code(s): T78.40XA - Allergy, unspecified, initial encounter Disposition: - TO HOME OR SELFCARE Is pt being admited?: No Does the pt Need Aspirin: No Condition: Stable Instructions: Urticaria (ED), Itchy Skin (ED), Allergies (ED) Additional Instructions: Take medications with food, drink plenty of fluids and follow-up with your primary care physician as advised. Return to the ED immediately if symptoms get worse. Prescriptions: methylPREDNISolone [Medrol] 4 mg PO DAILY #21 tab.ds.pk Ranitidine HCl [Zantac] 150 mg PO Q12H #24 tablet Referrals: JAYME LEO MD [Primary Care Provider] - 3-5 Days Time of Disposition: 20:25 Print Language: ROMANIAN
== END 2019-02-25 20:35 | disposition home or self-care (01) ==
LOC: ED 17:55
DX: L50.0 Allergic urticaria (principal); M79.7 Fibromyalgia; G43.909 Migraine, unspecified, not intractable, without status migrainosus; K21.9 Gastro-esophageal reflux disease without esophagitis; Z88.5 Allergy status to narcotic agent; Z88.7 Allergy status to serum and vaccine; Z91.012 Allergy to eggs; Z90.49 Acquired absence of other specified parts of digestive tract
CPT/HCPCS: 96372; 99282; J2930

== ENCOUNTER 2019-04-11 12:30 | Outpatient (CLI) | payer BC ==
[2019-04-11 13:14] LABS: Basophils % (Auto) 0.5 % (0.0-1.8); Eosinophils # (Auto) 0.1 K/mm3 (0.0-0.4); Eosinophils % (Auto) 1.2 % (0.0-4.3); Hematocrit 39.1 % (30.3-42.9); Hemoglobin 12.2 gm/dl (10.1-14.3); Lymphocytes # (Auto) 2.4 K/mm3 (1.2-5.4); Lymphocytes % (Auto) 43.7 % (13.4-35.0); Mean Corpuscular HGB Conc 31 % (30-34); Mean Corpuscular Volume 74 fl (79-97); Monocytes # (Auto) 0.4 K/mm3 (0.0-0.8); Monocytes % (Auto) 7.6 % (0.0-7.3); Platelet Count 290 K/mm3 (140-440); Red Blood Count 5.31 M/mm3 (3.65-5.03); Red Cell Distribution Width 15.6 % (13.2-15.2)
[2019-04-11 13:24] LABS: Iron 74 ug/dL (37-170)
[2019-04-11 13:35] LABS: Free T4 (Free Thyroxine) 0.93 ng/dL (0.76-1.46)
== END 2019-04-11 12:31 | disposition home or self-care (01) ==
LOC: LAB 12:30
PROVIDERS: ATTEND Psychiatry & Neurology Neurology
DX: D50.9 Iron deficiency anemia, unspecified (principal); G62.9 Polyneuropathy, unspecified; K21.9 Gastro-esophageal reflux disease without esophagitis
CPT/HCPCS: 36415; 80051; 82565; 82947; 83540; 84439; 84443; 85025

== ENCOUNTER 2019-04-25 10:22 | Day surgery (SDC) | payer BC ==
[2019-04-25 10:52] VITALS: BP 122/69
[2019-04-25] MEDS ORDERED: XYLOCAINE 1% 20 mL ONE (12:57)
[2019-04-25] MEDS ORDERED: MARCAINE 0.5% INFILTRATI ONE ×2 (12:57→17:46)
[2019-04-25] MEDS ORDERED: XYLOCAINE 1% 20 mL INFILTRATI ONE (17:46)
--- NOTE | 2019-04-25 19:38 | Procedure Note ---
Date of procedure: 04/25/19 Pre-op diagnosis: chronic left shoulder pain Post-op diagnosis: same Procedure: Left lateral pectoral nerve block shoulder Procedure Patient was brought to the OR and placed on the OR table supine following routine prep and drape of the left shoulder the C-arm was brought in and the coracoid process was seen and visualized And the skin overlying this bony prominence was anesthetized with half percent lidocaine following this a 22- gauge spinal needle was used to visualize the coracoid process the needle was advanced until it came in contact with the bone Following this the lateral pectoral nerve was anesthetized with half percent Marcaine following this the spinal needle was removed the puncture wound was cleansed and a Band-Aid was applied to the area the patient tolerated the procedure there were no Occasions she was taken back to observation and discharged Anesthesia: local Surgeon: TRESA LÓPEZ Estimated blood loss: minimal Pathology: none Condition: stable Disposition: observation
--- NOTE | 2019-04-25 21:05 | XRay Report ---
Left shoulder single view INDICATION: Left shoulder pain IMPRESSION: No abnormalities identified following left shoulder nerve block Total fluoroscopy time measured 2.4 minutes. Signer Name: Dequan Yates MD Signed: 04/25/2019 9:00 PM Workstation Name: [id number]
== END 2019-04-25 10:23 | disposition home or self-care (01) ==
LOC: OR 10:22
PROVIDERS: ATTEND Orthopaedic Surgery
DX: M25.512 Pain in left shoulder (principal); G43.909 Migraine, unspecified, not intractable, without status migrainosus; K21.9 Gastro-esophageal reflux disease without esophagitis; F41.9 Anxiety disorder, unspecified; F32.9 Major depressive disorder, single episode, unspecified; F90.9 Attention-deficit hyperactivity disorder, unspecified type; D64.9 Anemia, unspecified; Z91.012 Allergy to eggs; Z88.6 Allergy status to analgesic agent; Z88.8 Allergy status to other drugs, medicaments and biological substances; Z88.2 Allergy status to sulfonamides; Z79.899 Other long term (current) drug therapy; Z98.891 History of uterine scar from previous surgery; Z98.890 Other specified postprocedural states

== ENCOUNTER 2019-05-10 05:47 | Day surgery (SDC) | payer BC ==
[~2019-05-10 05:47] MED LIST: LACTATED RINGERS 1,000 ML IV SCH
[2019-05-10] MEDS ORDERED: TRANSDERM-SCOP TD NR (06:00)
[2019-05-10] MEDS ORDERED: VERSED IV NR (06:00)
[2019-05-10] MEDS ORDERED: MARCAINE 0.5% INFILTRATI ONE (07:11)
[2019-05-10] MEDS ORDERED: DEPO-Medrol ONE ×2 (07:11→08:47)
[2019-05-10] MEDS ORDERED: XYLOCAINE 2% INFILTRATI ONE (07:11)
[2019-05-10] MEDS ORDERED: SUBLIMAZE IV PRN (07:18)
[2019-05-10] MEDS ORDERED: ZOFRAN IV PRN (07:18)
--- NOTE | 2019-05-10 07:18 | Anesthesia Consultation ---
Anesthesia Consult and Med Hx Date of service: 05/10/19 - Airway Anesthetic Teeth Evaluation: Good ROM Head & Neck: Adequate Mental/Hyoid Distance: Adequate Mallampati Class: Class I Intubation Access Assessment: Good - Pulmonary Exam CTA: Yes - Cardiac Exam Cardiac Exam: RRR - Pre-Operative Health Status ASA Pre-Surgery Classification: ASA1 Proposed Anesthetic Plan: General, MAC - Pre-Anesthesia Comment Pre-Anesthesia Comments: MAC vs GA pending discussion with surgeon. - Pulmonary Hx Smoking: No Hx Respiratory Symptoms: No Hx Sleep Apnea: No (SUZE PRE SCREEN LOW RISK.) - Cardiovascular System Hx Hypertension: No Hx Heart Attack/AMI: No Hx Percutaneous Transluminal Coronary Angioplasty (PTCA): No - Central Nervous System Hx Seizures: No CVA: No Hx Back Pain: Yes (neck and back; fibromyalgia) - Gastrointestinal Hx Gastroesophageal Reflux Disease: Yes (took protonix this morning) - Endocrine Hx Renal Disease: No Hx Liver Disease: No Hx Insulin Dependent Diabetes: No Hx Non-Insulin Dependent Diabetes: No Hx Thyroid Disease: No - Hematic Hx Anemia: Yes (remote hx) - Other Systems Hx Obesity: Yes - Additional Comments Anesthesia Medical History Comments: Hx ADHD; did not take adderoll this morning. Hx PONV. Documented egg allergy but reports no issue with propofol in the past.
--- NOTE | 2019-05-10 07:18 | Anesthesia Day of Surgery ---
Anesthesia Day of Surgery - Day of Surgery Patient Examined: Yes Patient H&P Reviewed: Yes Patient is NPO: Yes
[2019-05-10] MEDS ORDERED: DIPRIVAN 10 MG/ML IV ONE (07:28)
[2019-05-10] MEDS ORDERED: VERSED ONE (07:28)
[2019-05-10] MEDS ORDERED: DILAUDID ONE (07:28)
[2019-05-10] MEDS ORDERED: XYLOCAINE MPF 2% ONE (07:40)
[2019-05-10] MEDS ORDERED: ZOFRAN IV NR (08:00)
[2019-05-10] MEDS ORDERED: TORADOL ONE (08:00)
--- NOTE | 2019-05-10 09:02 | Procedure Note ---
Date of procedure: 05/10/19 Pre-op diagnosis: chronic left shoulder pain Post-op diagnosis: same Procedure: Radiofrequency ablation left lateral pectoral nerve Procedure The patient was brought to the OR placed in the OR table in supine position the patient's left shoulder was prepped and draped in routine sterile manner. A timeout procedure was done to identify the patient and the correct operative site. C-arm fluoroscopy was used to locate the coracoid process and using a com bination of obliquing the C-arm camera we were able to isolate the entry point for the lateral pectoral nerve A probe was placed and the motor branch of the part of this nerve was evaluated and no visible PALPABLE muscle motion was detected. Following this the radiofrequency generator was started and maintained for approximately 2-1/2 minutes at 60C following this the probe was removed Marcaine and Depo-Medrol was injected this was followed by placement of Band-Aids over the proximal patient tolerated the procedure again no complications and she was sent to postanesthesia recovery in stable condition Anesthesia: other (IV sedation) Surgeon: TRESA LÓPEZ Estimated blood loss: minimal Pathology: none Disposition: PACU
--- NOTE | 2019-05-10 09:30 | XRay Report ---
1 fluoroscopic images submitted Indication: Left shoulder RF ablation Impression: 1 images of left shoulder were submitted for Dr. TRESA LÓPEZ MD for documenta tion purposes with radiology involvement. RF probe projects over the left coracoid process Fluoroscopy time 26 seconds One fluoroscopic image Signer Name: Raul Poole MD Signed: 05/10/2019 9:25 AM Workstation Name: [id number]
[2019-05-10] MEDS ORDERED: NORCO 5/325 PO PRN (09:46)
[2019-05-10 09:59] VITALS: BP 114/69
--- NOTE | 2019-05-10 11:53 | Post Anesthesia Evaluation ---
- Post Anesthesia Evaluation Patient Participated: Yes Airway Patent: Yes Stable Respiratory Function: Yes Nausea/Vomiting: No Temp > 96.8F: Yes Pain Manageable: Yes Adequeate Hydration: Yes Anesthesia Complications: No
== END 2019-05-10 10:12 | disposition home or self-care (01) ==
LOC: OR 05:47
PROVIDERS: ATTEND Orthopaedic Surgery
DX: M25.512 Pain in left shoulder (principal); G89.29 Other chronic pain; G43.909 Migraine, unspecified, not intractable, without status migrainosus; K21.9 Gastro-esophageal reflux disease without esophagitis; M79.7 Fibromyalgia; F31.9 Bipolar disorder, unspecified; F41.9 Anxiety disorder, unspecified; Z79.899 Other long term (current) drug therapy; Z88.6 Allergy status to analgesic agent; Z88.2 Allergy status to sulfonamides; Z91.040 Latex allergy status; Z91.012 Allergy to eggs; Z90.49 Acquired absence of other specified parts of digestive tract; Z98.890 Other specified postprocedural states; Z88.8 Allergy status to other drugs, medicaments and biological substances; Z86.2 Personal history of diseases of the blood and blood-forming organs and certain disorders involving the immune mechanism
CPT/HCPCS: 64640; 73020; 81025; A4649; J1030; J1170; J1885; J2250; J2405; J2704; J7120

== ENCOUNTER 2019-08-23 06:08 | Outpatient (CLI) | payer BC ==
[2019-08-23 07:18] LABS: Blood Urea Nitrogen 8 mg/dL (7-17)
--- NOTE | 2019-08-23 10:41 | Cat Scan Report ---
CT abdomen pelvis w con INDICATION / CLINICAL INFORMATION: ABDOMEN PAIN. TECHNIQUE: All CT scans at this location are performed using CT dose reduction for ALARA by means of automated e xposure control. COMPARISON: 08/15/2017 FINDINGS: Limited images of the lower chest show no acute findings. ABDOMEN: Cholecystectomy. The liver, spleen, pancreas and kidneys are normal. No adrenal masses. No retroperitoneal or mesenteric adenopathy. Contrast opacification of the small bowel is normal. Pelvis: The appendix is normal. No acute colon abnormality. No dependent fluid collections. No skeletal abnormality. IMPRESSION: 1. No acute abdominal or pelvic abnormality. Signer Name: Danilo German MD Signed: 08/23/2019 10:37 AM Workstation Name: [id number]
== END 2019-08-23 06:09 | disposition home or self-care (01) ==
LOC: CT 06:08
PROVIDERS: ATTEND Internal Medicine Gastroenterology
DX: K59.00 Constipation, unspecified (principal); K21.9 Gastro-esophageal reflux disease without esophagitis; Z88.5 Allergy status to narcotic agent; Z88.8 Allergy status to other drugs, medicaments and biological substances
CPT/HCPCS: 36415; 74177; 82565; 84520; Q9967

== ENCOUNTER 2019-08-26 09:03 | Outpatient (CLI) | payer BC ==
--- NOTE | 2019-08-26 12:19 | Ultrasound Report ---
ULTRASOUND ABDOMEN, COMPLETE INDICATION: PELVIC PAIN/ABDOMINAL PAIN. COMPARISON: 08/15/[address] abdomen pelvis with contrast dated 08/23/2019. FINDINGS: Pancreas: No significant abnormality. Abdominal Aorta: No significant abnormality. IVC: No significant abnormality. Liver: The liver measures 15.1 cm in length. No significant abnormality. Normal hepatopedal blood fl ow in the main portal vein. Gallbladder: Cholecystectomy.. Bile ducts: No significant abnormality. Common bile duct measures 8.0 mm. Kidneys: Right: 10.7 cm in length. No significant abnormality. Left: 11.4 cm in length. No signif icant abnormality. Spleen: No significant abnormality. Free fluid: None. Additional Findings: None. IMPRESSION: No sonographic abnormality of the abdomen. Cholecystectomy. Signer Name: Adam Jordan Jr, MD Signed: 08/26/2019 12:15 PM Workstation Name: [id number]
--- NOTE | 2019-08-26 12:24 | Ultrasound Report ---
ULTRASOUND PELVIS COMPLETE ULTRASOUND TRANSVAGINAL INDICATION / CLINICAL INFORMATION: PELVIC PAIN. TECHNIQUE: Transabdominal and Transvaginal. Duplex Color Doppler used: Yes. COMPARISON: CT abdomen pelvis with contrast dated 08/23/2019 FINDINGS: UTERUS: Present. - Appearance (if present): The uterus is anteverted. The uterus is mildly enlarged measuring 12.3-4.8 x 5.4 cm. No obvious uterine fibroids are identified on ultrasound. - Endometrial Complex (if present): No significant abnormality.. Thickness = 5.0 mm - Mass lesions: None. - Additional findings: None. RIGHT ADNEXA: No significant ovarian cyst or mass. Normal color Doppler blood flow. 3.5 x 1.5 x 3.0 c m. LEFT ADNEXA: No significant ovarian cyst or mass. Normal color Doppler blood flow. 2.0 x 3.2 x 2.4 cm . URINARY BLADDER: No significant abnormality. FREE FLUID: None. ADDITIONAL FINDINGS: None. IMPRESSION: The uterus is mildly enlarged which could indicate mild uterine fibroid disease although they are no t clearly demonstrated on ultrasound or CT. Small intramural fibroids could be considered. Normal endometrium and ovaries. Signer Name: Adam Jordan Jr, MD Signed: 08/26/2019 12:19 PM Workstation Name: [id number]
== END 2019-08-26 09:04 | disposition home or self-care (01) ==
LOC: US 09:03
PROVIDERS: ATTEND Obstetrics & Gynecology
DX: N85.2 Hypertrophy of uterus (principal)
CPT/HCPCS: 76700; 76830; 76856

== ENCOUNTER 2019-08-30 14:29 | Emergency (ER) | payer BC ==
--- NOTE | 2019-08-30 14:40 | Event Note ---
ED Screening Note Date of service: 08/30/19 Time: 14:33 ED Screening Note: 29 y o female presents with left sided abd pain worsening x [address] w contrast Monday ordered by [facility] US on Monday was ordered by [facility] No results yet recent treatment for UTI This initial assessment/diagnostic orders/clinical plan/treatment(s) is/are subject to change based on patients health status, clinical progression and re- assessment by fellow clinical providers in the ED. Further treatment and workup at subsequent clinical providers discretion. Patient/guardian urged not to elope from the ED as their condition may be serious if not clinically assessed and managed. Initial orders include: labs Review CT and US Pain control ACC eval
[2019-08-30 14:47] VITALS: BP 126/69
[2019-08-30 15:34] LABS: Basophils % (Auto) 0.5 % (0.0-1.8); Eosinophils % (Auto) 0.7 % (0.0-4.3); Hemoglobin 12.8 gm/dl (10.1-14.3); Lymphocytes # (Auto) 2.2 K/mm3 (1.2-5.4); Lymphocytes % (Auto) 39.6 % (13.4-35.0); Mean Corpuscular HGB Conc 31 % (30-34); Mean Corpuscular Volume 75 fl (79-97); Monocytes # (Auto) 0.4 K/mm3 (0.0-0.8); Monocytes % (Auto) 7.4 % (0.0-7.3); Platelet Count 231 K/mm3 (140-440); Red Cell Distribution Width 15.2 % (13.2-15.2)
[2019-08-30 16:33] LABS: Alanine Aminotransferase 12 units/L (7-56); Albumin 4.2 g/dL (3.9-5); BUN/Creatinine Ratio 11; Blood Urea Nitrogen 8 mg/dL (7-17); Calcium 9.2 mg/dL (8.4-10.2); Hemolysis Index 15
--- NOTE | 2019-08-30 16:48 | Emergency Department Report ---
ED General Adult HPI - General Chief complaint: Abdominal Pain Stated complaint: ABDOMINAL PAIN Time Seen by Provider: 08/30/19 16:42 Source: patient, RN notes reviewed, old records reviewed Mode of arrival: Ambulatory Limitations: No Limitations - History of Present Illness Initial comments: This is a 29-year-old female. Her manufacturing technician is Dr. Burns. Her picker/puller is Dr. Garcia. Patient had a CT scan abdomen pelvis ordered by her GI physician at this hospital 08/23/2019, which was negative for acute disease. She had a pelvic ultrasound ordered by her picker/puller on August 26, which showed a mildly enlarged uterus, fibroid disease, no evidence of ovarian torsion or for ovarian flow. Her past medical history includes migraines, ADHD, anxiety, polycystic ovarian syndrome, fibromyalgia and IBS. She presents to the ER within acute on chronic episode of lower abdominal pain and pelvic pain. The pain is sharp and throbbing, increases with palpation and decreases with rest. She denies vomiting, hematemesis, and bright red blood per rectum. She states she has follow-up with her picker/puller this Monday. Today is Monday. She reports that her picker/puller prescribe her Macrobid for a "urinary tract infection." She reports that she is not taking control tablets oral contraceptives at this time, and as far she knows, does not have a formal diagnosis of endometriosis. She reports that she is sex a monogamous with her , is not concerned about sexually transmitted infection. She denies vaginal discharge, dysuria, and has no new or different vaginal discharge. -: Gradual Location: abdomen, pelvis Radiation: non-radiation Quality: aching Consistency: other Improves with: medication, rest Worsens with: movement - Related Data Home Medications Medication Instructions Recorded Confirmed Last Taken ALPRAZolam [Xanax TAB] 1 mg PO PRN PRN 04/24/19 05/10/19 05/10/19 05:00 Butalb/Acetamin/Caff 50-325-40 1 tab PO PRN PRN 04/24/19 05/10/19 04/26/19 08:00 [Fioricet 50-325-40] Gabapentin [Neurontin] 900 mg PO TID 04/24/19 05/10/19 05/10/19 05:00 Ondansetron [Zofran TAB] 4 mg PO PRN PRN 04/24/19 05/10/19 05/07/19 08:00 Promethazine [Phenergan] 25 mg PO PRN PRN 04/24/19 05/10/19 05/07/19 08:00 QUEtiapine [SEROquel] 50 mg PO HS 04/24/19 05/06/19 Unknown Rizatriptan Benzoate [Rizatriptan] 10 mg PO PRN PRN 04/24/19 05/06/19 Unknown methOCARBAMOL [Robaxin TAB] 750 mg PO TID 04/24/19 05/06/19 Unknown tiZANidine [Zanaflex 4mg TAB] 4 mg PO TID 04/24/19 05/10/19 05/09/19 21:30 raNITIdine HCl [Zantac] 150 mg PO PRN PRN 04/25/19 05/06/19 Unknown Dextroamphetamine/Amphetamine 20 mg PO DAILY 05/10/19 05/08/19 08:00 [Adderall 20 mg Tablet] Pantoprazole [Protonix TAB] 20 mg PO DAILY 05/10/19 05/10/19 05/10/19 05:00 Quetiapine Fumarate [SEROquel] 50 mg PO HS 05/10/19 05/10/19 05/09/19 21:30 Rizatriptan Benzoate [Maxalt] 10 mg PO PRN 05/10/19 05/10/19 05/05/19 08:00 methOCARBAMOL [Robaxin TAB] 750 mg PO Q8H PRN 05/10/19 05/10/19 05/08/19 08:00 raNITIdine HCl [Zantac] 150 mg PO PRN 05/10/19 05/10/19 05/07/19 08:00 Previous Rx's Medication Instructions Recorded Last Taken Type Omeprazole Magnesium [Prilosec Otc] 20 mg PO QDAY #10 tablet. 08/15/17 04/12/19 08:00 Rx HYDROcodone/APAP 5-325 [[place] 1 each PO Q6H PRN #12 tablet 09/19/18 04/12/19 08:00 Rx 5-325 mg TAB] HYDROcodone/APAP 5-325 [[place] 1 each PO Q6HR PRN #15 tablet 05/10/19 Unknown Rx 5-325 mg TAB] oxyCODONE /ACETAMINOPHEN [Percocet 1 tab PO Q6HR PRN #10 tablet 08/30/19 Unknown Rx 5/325] Allergies Allergy/AdvReac Type Severity Reaction Status Date / Time egg Allergy Severe Anaphylaxis Verified 04/24/19 10:59 NSAIDS (Non-Steroidal Allergy Severe Anaphylaxis Verified 04/24/19 10:59 Anti-Inflamma Sulfa (Sulfonamide Allergy Severe Anaphylaxis Verified 04/24/19 10:59 Antibiotics) ibuprofen Allergy Intermediate Bleeding Verified 04/24/19 10:59 latex Allergy Hives Verified 05/10/19 07:04 plecanatide [From Trulance] Allergy Anaphylaxis Verified 08/30/19 14:31 adhesive tape AdvReac Intermediate Unknown Verified 04/24/19 10:59 ED Review of Systems ROS: Stated complaint: ABDOMINAL PAIN Other details as noted in HPI Constitutional: denies: fever, malaise Eyes: denies: eye discharge ENT: denies: congestion Cardiovascular: denies: syncope Gastrointestinal: abdominal pain. denies: diarrhea, constipation, hematemesis, melena Genitourinary: denies: dysuria Musculoskeletal: denies: back pain Skin: denies: lesions Neurological: denies: weakness Psychiatric: anxiety. denies: depression ED Past Medical Hx - Past Medical History Previous Medical History?: Yes Hx Hypertension: No Hx Heart Attack/AMI: No Hx GERD: Yes Hx Liver Disease: No Hx Renal Disease: No Hx Headaches / Migraines: Yes (MIGRAINES) Hx Seizures: No Hx Psychiatric Treatment: Yes (ADHD, anxiety) Hx HIV: No Additional medical history: MIGRAINES, PCOS, fibromylagia, IBS - Surgical History Past Surgical History?: Yes Hx Cholecystectomy: Yes Additional Surgical History: C SECTION X3 - Social History Smoking Status: Never Smoker - Medications Home Medications: Home Medications Medication Instructions Recorded Confirmed Last Taken Type Omeprazole Magnesium [Prilosec Otc] 20 mg PO QDAY #10 tablet. 08/15/1704/12/19 08:00 Rx HYDROcodone/APAP 5-325 [[place] 1 each PO Q6H PRN #12 tablet 09/19/18 05/10/19 04/12/19 08:00 Rx 5-325 mg TAB] ALPRAZolam [Xanax TAB] 1 mg PO PRN PRN 07/08/0305/10/19 05/10/19 05:00 History Butalb/Acetamin/Caff 50-325-40 1 tab PO PRN PRN 04/24/19 05/10/19 04/26/19 08:00 History [Fioricet 50-325-40] Gabapentin [Neurontin] 900 mg PO TID 04/24/19 05/10/19 05/10/19 05:00 History Ondansetron [Zofran TAB] 4 mg PO PRN PRN 04/24/19 05/10/19 05/07/19 08:00 His tory Promethazine [Phenergan] 25 mg PO PRN PRN 04/24/19 05/10/19 05/07/19 08:00 History QUEtiapine [SEROquel] 50 mg PO HS 04/24/19 05/06/19 Unknown History Rizatriptan Benzoate [Rizatriptan] 10 mg PO PRN PRN 04/24/19 05/06/19 Unknown History methOCARBAMOL [Robaxin TAB] 750 mg PO TID 04/24/19 05/06/19 Unknown History tiZANidine [Zanaflex 4mg TAB] 4 mg PO TID 04/24/19 05/10/19 05/09/19 21:30 History raNITIdine HCl [Zantac] 150 mg PO PRN PRN 04/25/19 05/06/19 Unknown History Dextroamphetamine/Amphetamine 20 mg PO DAILY 05/10/19 05/08/19 08:00 History [Adderall 20 mg Tablet] HYDROcodone/APAP 5-325 [[place] 1 each PO Q6HR PRN #15 tablet 05/10/19 Unknown Rx 5-325 mg TAB] Pantoprazole [Protonix TAB] 20 mg PO DAILY 05/10/19 05/10/19 05/10/19 05:00 History Quetiapine Fumarate [SEROquel] 50 mg PO HS 05/10/19 05/10/19 05/09/19 21:30 History Rizatriptan Benzoate [Maxalt] 10 mg PO PRN 05/10/19 05/10/19 05/05/19 08:00 History methOCARBAMOL [Robaxin TAB] 750 mg PO Q8H PRN 05/10/19 05/10/1919 08:00 History raNITIdine HCl [Zantac] 150 mg PO PRN 05/10/19 05/10/19 05/07/19 08:00 History oxyCODONE /ACETAMINOPHEN [Percocet 1 tab PO Q6HR PRN #10 tablet 08/30/19 Unknown Rx 5/325] ED Physical Exam - General Limitations: No Limitations General appearance: alert, anxious, obese - Head Head exam: Present: atraumatic, normocephalic - Eye Eye exam: Present: normal appearance, EOMI. Absent: nystagmus - ENT ENT exam: Present: normal exam, normal orophraynx, mucous membranes moist, normal external ear exam - Neck Neck exam: Present: normal inspection, full ROM. Absent: tenderness, meningismus - Respiratory Respiratory exam: Present: normal lung sounds bilaterally. Absent: respiratory distress - Cardiovascular Cardiovascular Exam: Present: regular rate, normal rhythm, normal heart sounds. Absent: bradycardia, tachycardia, irregular rhythm, systolic murmur, diastolic murmur, rubs, gallop - GI/Abdominal GI/Abdominal exam: Present: soft, normal bowel sounds, other (there is minimal suprapelvic lower abdominal tenderness. There is no rebound, guarding or peritoneal sign. There is negative Mcguire sign. There is a negative Rovsigs sign.). Absent: distended, guarding, rebound, rigid, pulsatile mass - External exam: Present: normal external exam Speculum exam: Present: normal speculum exam Bi-manual exam: Present: cervical motion tendernes, adnexal tenderness, uterine tenderness, other (chaperoned by nurse Audra Allred) - Extremities Exam Extremities exam: Present: normal inspection, full ROM, other (2+ pulses noted in the bilateral upper, lower extremities. There is no long bone tenderness. Musculoskeletal compartments are soft. The pelvis is stable.). Absent: pedal edema, joint swelling, calf tenderness - Back Exam Back exam: Present: normal inspection, full ROM. Absent: tenderness, CVA tenderness (R), CVA tenderness (L), paraspinal tenderness, vertebral tenderness - Neurological Exam Neurological exam: Present: alert, oriented X3, normal gait, other (there is no facial droop. The tongue is midline. Extraocular movements are intact bilate rally. Patient speaking in full complete sentences. Shoulder shrug is intact bilaterally. Hearing is grossly intact bilaterally. Visual acuity intact to finger counting and color perception at a close distance. 5/5 strength 4 extremities. Sensation intact to light touch in 4 extremities.) - Psychiatric Psychiatric exam: Present: normal affect, normal mood - Skin Skin exam: Present: warm, dry, intact, normal color. 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 07/29/2019 2 07/29/2019 CODEINE-GUAIFEN 10-100 MG/5 ML 240.0 15 LO DALE [id number] [facility] (4296) 0 4.8 MME Comm Ins 07/24/2019 2 07/01/2019 ALPRAZOLAM 1 MG TABLET 30.0 30 JE KLO [id number] [place] (4296) 0 Comm Ins 07/24/2019 2 01/11/2019 DEXTROAMP-AMPHETAMIN 20 MG TAB 60.0 30 AL AHM [id number] [place] (4296) 0 Comm Ins 06/06/2019 2 01/11/2019 ALPRAZOLAM 1 MG TABLET 30.0 30 AL AHM [id number] [place] (4296) 1 Comm Ins 05/30/2019 2 05/30/2019 DEXTROAMP-AMPHETAMIN 20 MG TAB 60.0 30 JE KLO [id number] [place] (4296) 0 Comm Ins 05/10/2019 2 05/10/2019 HYDROCODONE-ACETAMIN 5-325 MG 15.0 3 RO GRACIELA [id number] [place] (4296) 0 25.0 MME Comm Ins 05/06/2019 2 05/05/2019 ALPRAZOLAM 1 MG TABLET 30.0 30 JE KLO [id number] [place] (4296) 0 Comm Ins 05/03/2019 2 03/07/2019 DEXTROAMP-AMPHETAMIN 20 MG TAB 60.0 30 AL AHM [id number] [place] (4296) 0 Comm Ins 04/15/2019 2 04/11/2019 [id number] 50-325-40 60.0 30 RI STA [id number] [place] (4296) 0 Comm Ins 03/08/2019 2 01/11/2019 DEXTROAMP-AMPHETAMIN 20 MG TAB 60.0 30 AL M [id number] [facility] (4296) 0 Comm Ins 03/07/2019 2 03/07/2019 ALPRAZOLAM 1 MG TABLET 30.0 30 AL M [id number] [facility] (4296) 0 Comm Ins [place] 02/05/2019 1 02/05/2019 DEXTROAMP-AMPHETAMIN 20 MG TAB 60.0 30 AL M [id number] [facility] (2764) 0 Comm Ins [place] 01/14/2019 2 01/11/2019 ALPRAZOLAM 1 MG TABLET 30.0 30 AL M [id number] [place] (4296) 0 Comm Ins [place] 01/01/2019 2 01/01/2019 HYDROCODONE-ACETAMIN 5-325 MG 20.0 5 RO GRACIELA [id number] [place] (4296) 0 20.0 MME Private Pay [place] 12/27/2018 2 12/10/2018 DEXTROAMP-AMPHETAMIN 20 MG TAB 45.0 30 AL M [id number] [facility] (4296) 0 Comm Ins 12/10/2018 2 12/10/2018 ALPRAZOLAM 1 MG TABLET 30.0 30 AL AHM [id number] [place] (4296) 0 Comm Ins 11/27/2018 2 11/27/2018 HYDROCODONE-ACETAMIN 5-325 MG 15.0 4 RO GRACIELA [id number] [place] (4296) 0 18.75 MME Comm Ins 11/09/2018 2 11/09/2018 DEXTROAMP-AMPHETAMIN 20 MG TAB 45.0 30 AL M [id number] [facility] (4296) 0 Comm Ins 10/30/2018 2 10/30/2018 HYDROCODONE-ACETAMIN 5-325 MG 20.0 5 RO GRACIELA [id number] [place] (4296) 0 20.0 MME Comm Ins 10/24/2018 2 09/17/2018 ALPRAZOLAM 1 MG TABLET 30.0 30 AL AHM [id number] [place] (4296) 0 Comm Ins [place] 09/21/2018 2 09/21/2018 HYDROCODONE-ACETAMIN 7.5-325 20.0 5 RO GRACIELA [id number] [place] (4296) 0 30.0 MME Comm Ins [place] 09/20/2018 2 09/19/2018 HYDROCODONE-ACETAMIN 5-325 MG 12.0 3 RY [facility] [id number] [facility] (0023) 0 20.0 MME Comm Ins [place] 09/12/2018 2 09/12/2018 [id number] 50-325-40 12.0 3 [place] ALVARO [id number] [place] (6996) 0 Comm Ins [place] 09/12/2018 2 08/20/2018 ALPRAZOLAM 1 MG TABLET 30.[address] [facility] [id number] [place] (6964) 0 Comm Ins [place] 09/04/2018 2 08/20/2018 DEXTROAMP-AMPHETAMIN 20 MG TAB 45.[address] [facility] [id number] [place] (2438) 0 Comm Ins [place] ED Medical Decision Making - Lab Data Result diagrams: 08/30/19 15:18 08/30/19 15:18 Vital Signs 08/30/19 14:45 Temperature 98.7 F Pulse Rate 71 Respiratory 17 Rate Blood Pressure 126/69 O2 Sat by Pulse 100 Oximetry Lab Results 08/30/19 08/30/19 08/30/19 Range/Units 15:18 15:18 17:05 WBC 5.5 (4.5-11.0) K/mm3 RBC 5.50 H (3.65-5.03) M/mm3 Hgb 12.8 (10.1-14.3) gm/dl Hct 41.0 (30.3-42.9) % MCV 75 L (79-97) fl MCH 23 L (28-32) pg MCHC 31 (30-34) % RDW 15.2 (13.2-15.2) % Plt Count 231 (140-440) K/mm3 Lymph % (Auto) 39.6 H (13.4-35.0) % Branch % (Auto) 7.4 H (0.0-7.3) % Eos % (Auto) 0.7 (0.0-4.3) % Baso % (Auto) 0.5 (0.0-1.8) % Lymph # 2.2 (1.2-5.4) K/mm3 Branch # 0.4 (0.0-0.8) K/mm3 Eos # 0.0 (0.0-0.4) K/mm3 Baso # 0.0 (0.0-0.1) K/mm3 Seg Neutrophils % 51.8 (40.0-70.0) % Seg Neutrophils # 2.8 (1.8-7.7) K/mm3 Sodium 137 (137-145) mmol/L Potassium 4.2 (3.6-5.0) mmol/L Chloride 103.1 (98-107) mmol/L Carbon Dioxide 17 L (22-30) mmol/L Anion Gap 21 mmol/L BUN 8 (7-17) mg/dL Creatinine 0.7 (0.7-1.2) mg/dL Estimated GFR > 60 ml/min BUN/Creatinine Ratio 11 % Glucose 89 (65-100) mg/dL Calcium 9.2 (8.4-10.2) mg/dL Total Bilirubin 0.40 (0.1-1.2) mg/dL AST 35 (5-40) units/L ALT 12 (7-56) units/L Alkaline Phosphatase 105 (35-129) units/L Total Protein 8.6 H (6.3-8.2) g/dL Albumin 4.2 (3.9-5) g/dL Albumin/Globulin Ratio 1.0 % Urine Color Yellow (Yellow) Urine Turbidity Clear (Clear) Urine pH 6.0 (5.0-7.0) Ur Specific [place] 1.021 (1.003-1.030) Urine Protein <15 mg/dl (Negative) mg/dL Urine Glucose (UA) Neg (Negative) mg/dL Urine Ketones Neg (Negative) mg/dL Urine Blood Neg (Negative) Urine Nitrite Neg (Negative) Urine Bilirubin Neg (Negative) Urine Urobilinogen < 2.0 (<2.0) mg/dL Ur Leukocyte Esterase Neg (Negative) Urine WBC (Auto) < 1.0 (0.0-6.0) /HPF Urine RBC (Auto) < 1.0 (0.0-6.0) /HPF U Epithel Cells (Auto) < 1.0 (0-13.0) /HPF Urine HCG, Qual Negative (Negative) - Radiology Data Radiology results: report reviewed, image reviewed - Medical Decision Making Differential diagnosis, including not limited to: Chronic pelvic pain syndrome, endometriosis, pelvic inflammatory disease Assessment and plan: 29-year-old female with recurrent lower abdominal pain, had extensive workup done by both GI and gynecology, who is afebrile with reassuring vital signs. Her belly is soft, with minimal tenderness. She has some cervical motion tenderness and adnexal tenderness. We did discuss treatment empirically for pelvic inflammatory disease, but the patient declines because she was going to follow up with her picker/puller on Monday. She does not suspect marital infidelity, and she understands that the risks of delayed treatment or incomplete/inadequate treatment for gonorrhea chlamydia including infertility and chronic pain. Her pain is improved after hydromorphone. The [place] prescription monitoring database is consulted she is allergic/intolerant of NSAIDs, and therefore will be given a short course of Percocet to assist with breakthrough pain. She states she is reliable to follow-up with her picker/puller as an outpatient. Critical care attestation.: If time is entered above; I have spent that time in minutes in the direct care of this critically ill patient, excluding procedure time. ED Disposition Clinical Impression: Pelvic pain Disposition: - TO HOME OR SELFCARE Is pt being admited?: No Does the pt Need Aspirin: No Condition: Stable Additional Instructions: Cultures were sent today, and results will be available in the next 3-5 days. Have your picker/puller contact the medical records department to obtain culture results. If taking Percocet for pain, do not drive, consume alcohol, or make important decisions. If taking Percocet for pain, do not combine with other sedating medications. Advance diet as tolerated, follow-up with your gyne cologist within the next week, return to emergency room right away with projectile vomiting, change in mental status, confusion, inability to tolerate liquid feeds, new, worsened or different symptoms not present on initial emergency room evaluation. Referrals: ANGEL GARCIA MD [Staff Physician] - 3-5 Days
[2019-08-30] MEDS ORDERED: HYDROmorphone 1 MG/1 ML INJ IM ONE (16:55)
[2019-08-30 17:22] LABS: Bilirubin,Urine NEG (Negative); Blood,Urine NEG (Negative); Color,Urine Yellow (Yellow); Protein,Urine <15 mg/dL mg/dL (Negative); RBC,Urine < 1.0 /HPF (0.0-6.0); Urobilinogen,Urine < 2.0 mg/dL (<2.0); WBC,Urine < 1.0 /HPF (0.0-6.0)
[2019-08-30 17:24] LABS: HCG Qualitative,Urine Negative (Negative)
== END 2019-08-30 18:30 | disposition home or self-care (01) ==
LOC: ED 14:29
DX: R10.2 Pelvic and perineal pain (principal); K21.9 Gastro-esophageal reflux disease without esophagitis; G43.909 Migraine, unspecified, not intractable, without status migrainosus; F90.9 Attention-deficit hyperactivity disorder, unspecified type; F41.9 Anxiety disorder, unspecified; Z98.890 Other specified postprocedural states; Z91.011 Allergy to milk products; Z88.6 Allergy status to analgesic agent; Z88.8 Allergy status to other drugs, medicaments and biological substances
CPT/HCPCS: 36415; 80053; 81001; 81025; 85025; 87210; 87591; 96372; 99284; J1170

== ENCOUNTER 2019-09-27 08:38 | Outpatient (CLI) | payer BC ==
--- NOTE | 2019-09-27 10:44 | Magnetic Resonance Report ---
MR PELVIS WITH AND WITHOUT CONTRAST HISTORY: Abdominal and pelvic pain, uterine fibroids TECHNIQUE: Multisequence, multiplanar MRI before and after 18 cc of MultiHance intravenously. COMPARISON: Ultrasound transvaginal dated 08/26/2019. CT abdomen and pelvis dated 08/23/2019. FINDINGS: The uterus is anteverted. The uterus is mildly enlarged on MRI as well measuring 10.1 x 5.9 x 5.4 cm. No uterine fibroids are detected on MRI with and without contrast. There is homogeneous enhancement of the uterine parenchyma. Susceptibility artifact is noted in the lower anterior uterine wall which is probably secondary to previous , correlate with history. The cervix is unremarkable. A ta mpon is present in the vaginal canal. The endometrium is homogeneous and measures 5.1 mm. The ovaries are normal size, contour and signal. Multiple follicles are noted bilaterally. No ovarian cyst or mass. No fallopian tubule abnormality is detected. The bladder and visualized bowel loops in the pelvis are unremarkable. No ascites, adenopathy or bony abnormality. IMPRESSION: No evidence for uterine fibroid disease on MRI. Previous or other surgery is suspected along the lower anterior uterine wall, correlate wit h history. Normal ovaries. No clear explanation for pelvic pain. Signer Name: Adam Jordan Jr, MD Signed: 09/27/2019 10:39 AM Workstation Name: [id number]
== END 2019-09-27 08:39 | disposition home or self-care (01) ==
LOC: MRI 08:38
PROVIDERS: ATTEND Radiology Diagnostic Radiology
DX: D25.9 Leiomyoma of uterus, unspecified (principal); Z88.8 Allergy status to other drugs, medicaments and biological substances; Z88.1 Allergy status to other antibiotic agents; Z91.040 Latex allergy status; Z91.018 Allergy to other foods
CPT/HCPCS: 72197; A9577

== ENCOUNTER 2019-12-05 07:43 | Outpatient (CLI) | payer BC ==
--- NOTE | 2019-12-05 10:09 | Magnetic Resonance Report ---
MRI CERVICAL SPINE WITHOUT CONTRAST INDICATION / CLINICAL INFORMATION: CERVICAL RADICULOPATHY. TECHNIQUE: Multisequence, multiplanar images of the cervical spine were obtained. COMPARISON: CT cervical spine dated 09/19/2018 FINDINGS: CRANIOCERVICAL JUNCTION:No significant abnormality. ALIGNMENT: No significant abnormality. VERTEBRAE:Normal marrow signal and vertebral body height for age. VISUALIZED SPINAL CORD: No significant abnormality. YKAXI-LX-TCOOS ANALYSIS: C2-3: No significant disc abnormality, spinal canal stenosis, or neural foraminal stenosis. C3-4: No significant disc abnormality, spinal canal stenosis, or neural foraminal stenosis. C4-5: No significant disc abnormality, spinal canal stenosis, or neural foraminal stenosis. C5-6: Minimal posterior and bilateral uncovertebral spurring. No significant disc abnormality, spinal canal stenosis, or neural foraminal stenosis. C6-7: No significant disc abnormality, spinal canal stenosis, or neural foraminal stenosis. C7-T1: No significant disc abnormality, spinal canal stenosis, or neural foraminal stenosis. PARASPINAL SOFT TISSUES: No significant abnormality. ADDITIONAL FINDINGS: None. IMPRESSION: Minimal degenerative disc disease at C5-6. No focal disc herniation, spinal canal stenosis or nerve r oot compression. Signer Name: Adam Jordan Jr, MD Signed: 12/05/2019 10:04 AM Workstation Name: [id number]
--- NOTE | 2019-12-05 10:13 | Magnetic Resonance Report ---
MRI LUMBAR SPINE WITHOUT CONTRAST INDICATION / CLINICAL INFORMATION: 724.4Thoracic or lumbosacral neuritis or radiculitis, unspecified. Back pain, numbness and tingling i n feet. TECHNIQUE: Multisequence, multiplanar images of the lumbar spine were obtained. COMPARISON: None available. FINDINGS: ALIGNMENT: Normal lumbar lordosis without significant scoliosis. VERTEBRAE:Normal marrow signal and vertebral body height for age. VISUALIZED SPINAL CORD: No significant abnormality. The conus terminates at the level of L1. Disc spaces: No significant abnormality. Facet joints: Mild bilateral facet arthropathy is identified at L3-4, L4-5 and L5-S1. [id number] ANALYSIS: L1-2: No significant abnormality. L2-3: No significant abnormality. L3-4: No significant abnormality. Mild arthritic changes in the facet joints. L4-5: No significant abnormality. Mild arthritic changes in the facet joints. Mild bilateral neural f oraminal narrowing is estimated at 25%. L5-S1: No significant abnormality. Mild arthritic changes in the facet joints. PARASPINAL SOFT TISSUES: No significant abnormality. ADDITIONAL FINDINGS: None. IMPRESSION: Mild facet arthropathy is noted at the lowest 3 levels of the lumbar spine. No focal disc herniation, spinal canal stenosis or nerve root compression. Signer Name: Adam Jordan Jr, MD Signed: 12/05/2019 10:08 AM Workstation Name: [id number]
== END 2019-12-05 07:44 | disposition home or self-care (01) ==
LOC: MRI 07:43
PROVIDERS: ATTEND Anesthesiology
DX: M54.12 Radiculopathy, cervical region (principal)
CPT/HCPCS: 72141; 72148

== ENCOUNTER 2020-01-06 13:29 | Outpatient (CLI) | payer BC ==
[2020-01-06 13:48] LABS: Basophils % (Auto) 0.2 % (0.0-1.8); Eosinophils % (Auto) 0.3 % (0.0-4.3); Hematocrit 37.3 % (30.3-42.9); Hemoglobin 12.2 gm/dl (10.1-14.3); Lymphocytes # (Auto) 2.5 K/mm3 (1.2-5.4); Lymphocytes % (Auto) 36.7 % (13.4-35.0); Mean Corpuscular HGB Conc 33 % (30-34); Mean Corpuscular Volume 73 fl (79-97); Monocytes # (Auto) 0.5 K/mm3 (0.0-0.8); Monocytes % (Auto) 7.4 % (0.0-7.3); Platelet Count 277 K/mm3 (140-440); Red Blood Count 5.13 M/mm3 (3.65-5.03); Red Cell Distribution Width 15.1 % (13.2-15.2)
[2020-01-06 14:13] LABS: Alanine Aminotransferase 13 units/L (7-56); Albumin 4.5 g/dL (3.9-5); BUN/Creatinine Ratio 7; Blood Urea Nitrogen 5 mg/dL (7-17); Calcium 9.5 mg/dL (8.4-10.2); Hemolysis Index 2
== END 2020-01-06 13:30 | disposition home or self-care (01) ==
LOC: LAB 13:29
PROVIDERS: ATTEND Nurse Practitioner
DX: K92.1 Melena (principal); R10.9 Unspecified abdominal pain
CPT/HCPCS: 36415; 80053; 83690; 85025

== ENCOUNTER 2020-01-15 07:03 | Day surgery (SDC) | payer BC ==
[~2020-01-15 07:03] MED LIST changes: -LACTATED RINGERS 1,000 ML IV SCH; +SODIUM CHLORIDE 0.9% 1000 ML 1,000 ML IV SCH
[2020-01-15] MEDS ORDERED: MIDAZOLAM 2 MG/2 ML INJ ONE (08:02)
[2020-01-15] MEDS ORDERED: propofoL 200 MG/20 ML VIAL IV ONE ×2 (08:02)
--- NOTE | 2020-01-15 08:11 | Anesthesia Consultation ---
Anesthesia Consult and Med Hx Date of service: 01/15/20 - Airway Anesthetic Teeth Evaluation: Good ROM Head & Neck: Adequate Mental/Hyoid Distance: Adequate Mallampati Class: Class II Intubation Access Assessment: Probably Good - Pre-Operative Health Status ASA Pre-Surgery Classification: ASA2 Proposed Anesthetic Plan: MAC - Pulmonary Hx Smoking: No Hx Respiratory Symptoms: No Hx Sleep Apnea: No (SUZE PRE SCREEN LOW RISK.) - Cardiovascular System Hx Hypertension: No Hx Heart Attack/AMI: No Hx Percutaneous Transluminal Coronary Angioplasty (PTCA): No - Central Nervous System Hx Seizures: No CVA: No Hx Back Pain: Yes (neck and back; fibromyalgia) - Gastrointestinal Hx Gastroesophageal Reflux Disease: Yes (took protonix this morning) - Endocrine Hx Renal Disease: No Hx Liver Disease: No Hx Insulin Dependent Diabetes: No Hx Non-Insulin Dependent Diabetes: No Hx Thyroid Disease: No - Hematic Hx Anemia: Yes - Other Systems Hx Cancer: No Hx Obesity: Yes
--- NOTE | 2020-01-15 08:12 | Anesthesia Day of Surgery ---
Anesthesia Day of Surgery - Day of Surgery Patient Examined: Yes Patient H&P Reviewed: Yes Patient is NPO: Yes
--- NOTE | 2020-01-15 08:47 | Operative Report ---
Operative Report Operative Report: Esophagogastroduodenoscopy Procedure Note Date of procedure: 01/15/2020 Endoscopist: Miguel Burns Pre-op diagnosis/indication: Abdominal pain, GERD Post-op diagnosis: Normal upper endoscopy MEDICATIONS: MAC COMPLICATIONS: No immediate complications ESTIMATED BLOOD LOSS: Minimal DESCRIPTION OF PROCEDURE: After consent was obtained, the patient was placed in the left lateral decubitis position. The olympus endoscope was inserted into the patient's mouth under direct vision and advanced to the 2nd portion of the duodenum without difficulty. The patient tolerated the procedure well. The views of the mucosa were good. The patient's vital signs were monitored continuously throughout the procedure. FINDINGS: The esophagus appeared normal. The stomach appeared normal. The visualized portion of the duodenum appeared normal. IMPRESSION: 1. Normal upper endoscopy RECOMMENDATIONS: -continue current medications -follow-up in GI clinic as previously scheduled
--- NOTE | 2020-01-15 08:53 | Operative Report ---
Operative Report Operative Report: Colonoscopy Procedure Note Date of procedure: 01/15/2020 Endoscopist: Miguel Burns Pre-op diagnosis/indication: Abdominal pain, hematochezia Post-op diagnosis: Internal hemorrhoids, otherwise normal colonoscopy MEDICATIONS: MAC COMPLICATIONS: No immediate complications ESTIMATED BLOOD LOSS: None DESCRIPTION OF PROCEDURE: After consent was obtained, the patient was placed in the left lateral decubitis position. The olympus colonoscope was inserted into the rectum and advanced to the cecum and terminal ileum without difficulty. The patient tolerated the procedure well. The views of the mucosa were good. The quality of prep was good. The patients vital signs were monitored continuously throughout the procedure. FINDINGS: The terminal ileum appeared normal. The entire examined colon appeared normal. Internal hemorrhoids were visualized on retroflexion view. IMPRESSION: 1. Internal hemorrhoids, otherwise normal colonoscopy. RECOMMENDATIONS: -hemorrhoidal cream/suppository prn -follow-up in GI clinic as scheduled
[2020-01-15] MEDS ORDERED: METOCLOPRAMIDE 10 MG/2 ML INJ ONE (08:56)
[2020-01-15] MEDS ORDERED: ONDANSETRON 4 MG/2 ML INJ ONE (08:56)
[2020-01-15] MEDS ORDERED: dexAMETHasone 20 MG/5 ML VIAL ONE (08:56)
[2020-01-15 09:27] VITALS: BP 102/76
== END 2020-01-15 12:30 | disposition home or self-care (01) ==
LOC: GIO 07:03
PROVIDERS: ATTEND Internal Medicine Gastroenterology
DX: R10.9 Unspecified abdominal pain (principal); K21.9 Gastro-esophageal reflux disease without esophagitis; K64.8 Other hemorrhoids; K92.1 Melena; Z91.012 Allergy to eggs; Z91.040 Latex allergy status; Z88.2 Allergy status to sulfonamides; Z91.09 Other allergy status, other than to drugs and biological substances; Z79.899 Other long term (current) drug therapy; G43.909 Migraine, unspecified, not intractable, without status migrainosus; Z90.49 Acquired absence of other specified parts of digestive tract; E66.9 Obesity, unspecified; M79.7 Fibromyalgia; F31.9 Bipolar disorder, unspecified; F41.9 Anxiety disorder, unspecified; D64.9 Anemia, unspecified; Z98.890 Other specified postprocedural states; Z98.891 History of uterine scar from previous surgery
CPT/HCPCS: 43235; 45378; 81025; J1100; J2250; J2405; J2704; J2765; J7030

== ENCOUNTER 2020-01-16 09:18 | Outpatient (CLI) | payer BC ==
--- NOTE | 2020-01-16 11:52 | Nuclear Medicine Report ---
NUCLEAR MEDICINE GASTRIC EMPTYING SCAN HISTORY: Abdominal pain TECHNIQUE: Anterior abdominal images were obtained for 90 minutes following 1.0 mCi of technetium 99 in sulfur colloid in oatmeal. FINDINGS: Half-life for gastric emptying measures 56 minutes. There is no scintigraphic evidence for reflux dis ease. IMPRESSION: Normal gastric emptying. Signer Name: Adam Jordan Jr, MD Signed: 01/16/2020 11:47 AM Workstation Name: [id number]
== END 2020-01-16 09:19 | disposition home or self-care (01) ==
LOC: NM 09:18
PROVIDERS: ATTEND Nurse Practitioner
DX: K92.1 Melena (principal); R10.9 Unspecified abdominal pain
CPT/HCPCS: 78264; A9541

== ENCOUNTER 2020-02-20 14:37 | Outpatient (CLI) | payer BC | END 2020-02-20 14:38 | disposition home or self-care (01) | LOC: LAB 14:37 | PROVIDERS: ATTEND Obstetrics & Gynecology | DX: N91.2 Amenorrhea, unspecified (principal) | CPT/HCPCS: 36415; 84443; 84702; 87086; 87591 ==

== ENCOUNTER 2020-03-04 08:15 | Outpatient (CLI) | payer BC ==
--- NOTE | 2020-03-04 09:18 | Ultrasound Report ---
OB Ultrasound HISTORY: VIABILITY. TECHNIQUE: Grayscale and color imaging performed. COMPARISON: OB ultrasound from 02/26/2020 FINDINGS: Uterus measures 14.7 x 6.2 x 5.9 cm. There is an intrauterine cystic structure in the mckenna l region with mean sac diameter of 1.7 cm which would correspond with an EGA of 6 weeks and 4 days. A pole is also identified measuring 7 mm which correlates with a gestational age of 6 weeks and 4 days as well. Heart rate is 125 bpm. A yolk sac is identified. No acute abnormality identified. No free fluid. The ovaries are both visualized with slight enlargement on the left likely due to a 2.6 c m cyst which is most likely functional and overall has a simple appearance. IMPRESSION: 1. Single viable intrauterine gestation as above. 2. Simple left ovarian cyst. Signer Name: Chris Yoder MD Signed: 03/04/2020 9:13 AM Workstation Name: [id number]
== END 2020-03-04 08:16 | disposition home or self-care (01) ==
LOC: US 08:15
PROVIDERS: ATTEND Obstetrics & Gynecology
DX: O34.81 Maternal care for other abnormalities of pelvic organs, first trimester (principal); O36.80X0 Pregnancy with inconclusive fetal viability, not applicable or unspecified; N83.292 Other ovarian cyst, left side; Z3A.08 8 weeks gestation of pregnancy
CPT/HCPCS: 76801

== ENCOUNTER 2020-03-12 21:43 | Emergency (ER) | payer BC ==
[2020-03-13] MEDS ORDERED: METOCLOPRAMIDE 10 MG/2 ML INJ IV ONE (01:06)
[2020-03-13] MEDS ORDERED: dexAMETHasone 20 MG/5 ML VIAL IV ONE (01:06)
[2020-03-13] MEDS ORDERED: SODIUM CHLORIDE 0.9% 1000 ML 1,000 ML IV ONE (01:07)
[2020-03-13] MEDS ORDERED: oxyCODONE /ACETAMINOPHEN 5-325MG TAB PO ONE (01:08)
--- NOTE | 2020-03-13 01:22 | Emergency Department Report ---
ED Headache HPI - General Chief Complaint: Headache Stated Complaint: MIGRAINE VERTIGO Time Seen by Provider: 03/13/20 00:58 - History of Present Illness Initial Comments: Ms. Dimas is a 29-year-old -[place] female with a history of migraine headaches who presents for frontal headaches x3 days, patient states she took her usual migraine regimen at home however is not working usual regiment Fioricet Benadryl Zofran , however she has been off of these medications since onset of . She is 8 weeks at this time but no symptoms ,no abdominal pain, no vaginal pain ,or bleeding. Headache is unusual location ,and intensity, and duration. There are no neuro deficits,no nausea vomiting no photophobia. She denies any fall ,injury ,or trauma. Quality: moderate Head Injury Location: frontal Recent Head Trauma: no recent headache/trauma Allergies/Adverse Reactions: Allergies egg Allergy (Severe, Verified 04/24/19 10:59) Anaphylaxis NSAIDS (Non-Steroidal Anti-Inflamma Allergy (Severe, Verified 04/24/19 10:59) Anaphylaxis Sulfa (Sulfonamide Antibiotics) Allergy (Severe, Verified 04/24/19 10:59) Anaphylaxis SWELING,NUMBNESS ibuprofen Allergy (Intermediate, Verified 04/24/19 10:59) Bleeding latex Allergy (Verified 05/10/19 07:04) Hives plecanatide [From Trulance] Allergy (Verified 08/30/19 14:31) Anaphylaxis adhesive tape Adverse Reaction (Intermediate, Verified 04/24/19 10:59) Unknown PAPER TAPE OK Home Medications: Ambulatory Orders Gabapentin [Neurontin] 900 mg PO TID 04/24/19 Pantoprazole [Protonix TAB] 20 mg PO DAILY 05/10/19 Adderall XR 20 mg 01/15/20 Cyclobenzaprine HCl 01/15/20 busPIRone 01/15/20 Acetaminophen [Mapap] 1,000 mg PO QID PRN #30 tablet 03/13/20 Metoclopramide [Reglan] 10 mg PO Q6H PRN #30 tablet 03/13/20 diphenhydrAMINE [Benadryl CAP] 25 mg PO Q6HR PRN #30 capsule 03/13/20 ED Review of Systems ROS: Stated complaint: MIGRAINE VERTIGO Other details as noted in HPI Constitutional: denies: chills, fever Eyes: denies: eye pain, eye discharge, vision change ENT: congestion. denies: ear pain, throat pain Respiratory: denies: cough, shortness of breath, wheezing Cardiovascular: denies: chest pain, palpitations Endocrine: no symptoms reported Gastrointestinal: denies: abdominal pain, nausea, vomiting, diarrhea Genitourinary: denies: urgency, dysuria, discharge Musculoskeletal: denies: back pain, joint swelling, arthralgia Skin: denies: rash, lesions Neurological: headache. denies: weakness, numbness, paresthesias, confusion, abnormal gait, vertigo Psychiatric: as per HPI Hematological/Lymphatic: denies: easy bleeding, easy bruising ED Past Medical Hx - Past Medical History Hx Hypertension: No Hx Heart Attack/AMI: No Hx GERD: Yes Hx Liver Disease: No Hx Renal Disease: No Hx Headaches / Migraines: Yes (MIGRAINES) Hx Seizures: No Hx Psychiatric Treatment: Yes (ADHD, anxiety) Hx HIV: No Additional medical history: MIGRAINES, PCOS, fibromylagia, IBS - Surgical History Hx Cholecystectomy: Yes Additional Surgical History: C SECTION X3. nerve block on left shoulder - Social History Smoking Status: Never Smoker - Medications Home Medications: Home Medications Medication Instructions Recorded Confirmed Last Taken Type Gabapentin [Neurontin] 900 mg PO TID 04/24/19 05/10/19 05/10/19 05:00 History Pantoprazole [Protonix TAB] 20 mg PO DAILY 05/10/19 05/10/19 05/10/19 05:00 History Adderall XR 20 mg 01/15/20 Unknown History Cyclobenzaprine HCl 01/15/20 Unknown History busPIRone 01/15/20 Unknown History Acetaminophen [Mapap] 1,000 mg PO QID PRN #30 tablet 03/13/20 Unknown Rx Metoclopramide [Reglan] 10 mg PO Q6H PRN #30 tablet 03/13/20 Unknown Rx diphenhydrAMINE [Benadryl CAP] 25 mg PO Q6HR PRN #30 capsule 03/13/20 Unknown Rx ED Physical Exam - General Limitations: No Limitations General appearance: alert, in no apparent distress - Head Head exam: Present: normocephalic, normal inspection - Eye Eye exam: Present: normal appearance, PERRL, EOMI Pupils: Present: normal accommodation - ENT ENT exam: Present: mucous membranes moist - Neck Neck exam: Present: normal inspection - Respiratory Respiratory exam: Present: normal lung sounds bilaterally. Absent: respiratory distress, wheezes, stridor, chest wall tenderness - Cardiovascular Cardiovascular Exam: Present: regular rate, normal rhythm, normal heart sounds. Absent: systolic murmur, diastolic murmur, rubs, gallop - GI/Abdominal GI/Abdominal exam: Present: soft, normal bowel sounds. Absent: distended, tenderness, bruit, hernia - Rectal Rectal exam: Present: deferred - Extremities Exam Extremities exam: Present: normal inspection, full ROM, normal capillary refill. Absent: tenderness - Back Exam Back exam: Present: normal inspection, full ROM. Absent: tenderness, CVA tender ness (R), CVA tenderness (L), vertebral tenderness - Neurological Exam Neurological exam: Present: alert, oriented X3, CN II-XII intact, normal gait, reflexes normal. Absent: motor sensory deficit - Expanded Neurological Exam Expanded Neurological exam: Absent: ataxia Patient oriented to: Present: person, place, time Speech: Present: fluid speech Cranial nerves: EOM's Intact: Normal, Gag Reflex: Normal Motor strength exam: RUE: 5, LUE: 5, RLE: 5, LLE: 5 DTR: ankle (R): 2+, ankle (L): 2+ Best Eye Response ([place]): (4) open spontaneously Best Motor Response ([place]): (6) obeys commands Best Verbal Response (Juan): (5) oriented [place] Total: 15 - Psychiatric Psychiatric exam: Present: normal affect, normal mood - Skin Skin exam: Present: warm, dry, intact, normal color. Absent: rash ED Course Vital Signs 03/12/20 03/13/20 21:55 01:51 Temperature 98.7 F 98.0 F Pulse Rate 74 77 Respiratory 20 16 Rate Blood Pressure 126/69 Blood Pressure 92/42 [Left] O2 Sat by Pulse 100 99 Oximetry ED Medical Decision Making - Medical Decision Making Headache is improved. Plan DC to home with prescription for Reglan Benadryl Tylenol patient will follow-up with LABOR/EXCAVATOR and primary care doctor for headache management in 2 to 3 days patient verbalizes agreement and understanding with discharge plan will be DC'd home in stable condition at this time. Patient is currently alert and oriented x3 amatory with steady gait. Critical care attestation.: If time is entered above; I have spent that time in minutes in the direct care of this critically ill patient, excluding procedure time. ED Disposition Clinical Impression: Headache Qualifiers: Headache type: unspecified Headache chronicity pattern: acute headache Intractability: not intractable Qualified Code(s): R51 - Headache Disposition: DC-01 TO HOME OR SELFCARE Is pt being admited?: No Does the pt Need Aspirin: No Condition: Stable Instructions: Acute Headache (ED) Prescriptions: diphenhydrAMINE [Benadryl CAP] 25 mg PO Q6HR PRN #30 capsule PRN Reason: Headache Acetaminophen [Mapap] 1,000 mg PO QID PRN #30 tablet PRN Reason: Headache Metoclopramide [Reglan] 10 mg PO Q6H PRN #30 tablet PRN Reason: Headache Referrals: KRISTEN ESCOBEDO MD [Staff Physician] - 3-5 Days BRANDIN MCLAUGHLIN MD [Referring] - 3-5 Days Forms: Work/School Release Form(ED) Time of Disposition: 02:48
[2020-03-13] MEDS ORDERED: diphenhydrAMINE 50 MG/ML VIAL ONE (01:40)
[2020-03-13] MEDS ORDERED: diphenhydrAMINE 50 MG/ML VIAL IV ONE (01:43)
[2020-03-13 01:51] VITALS: BP 92/42
== END 2020-03-13 02:58 | disposition home or self-care (01) ==
LOC: ED 21:43
DX: R51 Headache (principal); K21.9 Gastro-esophageal reflux disease without esophagitis; F90.9 Attention-deficit hyperactivity disorder, unspecified type; F41.9 Anxiety disorder, unspecified; Z90.49 Acquired absence of other specified parts of digestive tract; Z98.890 Other specified postprocedural states; Z79.899 Other long term (current) drug therapy; Z88.6 Allergy status to analgesic agent; Z91.012 Allergy to eggs
CPT/HCPCS: 96374; 96375; 99282; J1100; J1200; J2765; J7030; 96361

== ENCOUNTER 2020-04-16 16:19 | Emergency (ER) | payer BC ==
[2020-04-16 17:08] VITALS: BP 111/70
--- NOTE | 2020-04-16 17:30 | Event Note ---
ED Screening Note Date of service: 04/16/20 Time: 17:25 ED Screening Note: 29-year-old -Eth[place] female presents to the emergency room for abdominal pain located in the left lower quadrant. Constant nausea and vomiting that she is 13 weeks . Denies any diarrhea or loose stool. No fevers no chills. Denies any vaginal bleeding vaginal discharge or dysuria. No recent intercourse. A3. LMP 01/18/20. Followed by Dr. Lonny Portillo [employer]RICATOR provider. This initial assessment/diagnostic orders/clinical plan/treatment(s) is/are subject to change based on patients health status, clinical progression and re- assessment by fellow clinical providers in the ED. Further treatment and workup at subsequent clinical providers discretion. Patient/guardian urged not to elope from the ED as their condition may be serious if not clinically assessed and managed. Initial orders include:
[2020-04-16 17:57] LABS: Basophils % (Auto) 0.2 % (0.0-1.8); Eosinophils # (Auto) 0.1 K/mm3 (0.0-0.4); Eosinophils % (Auto) 0.6 % (0.0-4.3); Hematocrit 37.8 % (30.3-42.9); Hemoglobin 12.2 gm/dl (10.1-14.3); Lymphocytes % (Auto) 27.5 % (13.4-35.0); Mean Corpuscular HGB Conc 32 % (30-34); Mean Corpuscular Volume 74 fl (79-97); Monocytes # (Auto) 0.7 K/mm3 (0.0-0.8); Monocytes % (Auto) 6.6 % (0.0-7.3); Platelet Count 308 K/mm3 (140-440); Red Blood Count 5.13 M/mm3 (3.65-5.03); Red Cell Distribution Width 15.5 % (13.2-15.2)
[2020-04-16 18:16] LABS: Alanine Aminotransferase 22 units/L (7-56); Albumin 4.1 g/dL (3.9-5); BUN/Creatinine Ratio 9; Blood Urea Nitrogen 7 mg/dL (7-17); Calcium 9.5 mg/dL (8.4-10.2); Hemolysis Index 14
[2020-04-16] MEDS ORDERED: ACETAMINOPHEN 325 MG TAB PO ONE (18:35)
[2020-04-16] MEDS ORDERED: METOCLOPRAMIDE 10 MG/2 ML INJ IV ONE (18:35)
[2020-04-16] MEDS ORDERED: SODIUM CHLORIDE 0.9% 1000 ML 1,000 ML IV ONE (18:35)
[2020-04-16 18:43] LABS: Bilirubin,Urine NEG (Negative); Blood,Urine NEG (Negative); Color,Urine Yellow (Yellow); Protein,Urine <15 mg/dL mg/dL (Negative); Urobilinogen,Urine < 2.0 mg/dL (<2.0); WBC,Urine < 1.0 /HPF (0.0-6.0)
[2020-04-16] MEDS ORDERED: PROMETHAZINE 25 MG TAB PO ONE (20:05)
[2020-04-16] MEDS ORDERED: PROMETHAZINE 25 MG TAB ONE (20:08)
--- NOTE | 2020-04-16 20:27 | Ultrasound Report ---
ULTRASOUND ABDOMEN, COMPLETE INDICATION: LLQ abd pain, n/v, 13 weeks . COMPARISON: Previous abdominal ultrasound on 08/26/2019.. FINDINGS: Pancreas: No significant abnormality. Abdominal Aorta: No significant abnormality. IVC: No significant abnormality. Liver: The liver measures 13.9 cm in length. No significant abnormality. Normal hepatopedal blood charleen w in the main portal vein. Gallbladder: Surgically absent. Bile ducts: No significant abnormality. Common bile duct measures 7 mm. Right kidney: 10.9 cm in length. No significant abnormality. Left kidney: 11.4 cm in length. No significant abnormality. Spleen: No significant abnormality. Free fluid: None. Additional Findings: None. IMPRESSION: 1. No sonographic abnormality of the abdomen. Signer Name: Lei Gould MD Signed: 04/16/2020 8:22 PM Workstation Name: [id number]
--- NOTE | 2020-04-16 20:28 | Ultrasound Report ---
ULTRASOUND OBSTETRIC INDICATION / CLINICAL INFORMATION: LLQ abd pain, n/v, 13 weeks . Clinical Gestational Age (GA): 12.5 weeks.days TECHNIQUE: Transabdominal. COMPARISON: None available. FINDINGS: GESTATIONAL SAC: Well-defined oval shape and intrauterine in location. YOLK SAC: No significant abnormality. EMBRYO/FETUS: No significant abnormality. - [place]-Rump Length = 7.34 cm = 13.3 weeks.days - Heart Rate, beats per minute (if present) = 159 ADNEXA: No significant abnormality. FREE FLUID: None. ADDITIONAL FINDINGS: None. IMPRESSION: 1. Single, living intrauterine with estimated sonographic age of 13.3 weeks.days. Signer Name: Lei Gould MD Signed: 04/16/2020 8:24 PM Workstation Name: [id number]
--- NOTE | 2020-04-16 20:42 | Emergency Department Report ---
ED Abdominal Pain HPI - General Chief Complaint: Abdominal Pain Stated Complaint: ABD PAIN Source: patient Mode of arrival: Ambulatory Limitations: No Limitations - History of Present Illness Initial Comments: Patient is a A3 29-year-old -Russian female with no past medical history and who is approximately 13 weeks gestation presents to the ED with complaint of acute onset persistent severe diffuse low abdominal pain, worse in the left lower quadrant for the last 12 hours. Patient also complains of intermittent nausea and vomiting but states that this is unusual since she is 13 weeks gestation. 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 Patient denies dizziness, syncope, fever, chills, diarrhea, dyspareunia, dysuria, urinary frequency and urgency, vaginal bleeding, vaginal discharge, low back pain, cough, sore throat, chest pain or shortness of breath. MD Complaint: abdominal pain, other (nausea and vomiting) -: Sudden, hour(s) (12) Location: LLQ, suprapubic Radiation: LLQ Migration to: no migration Severity: moderate Severity scale (0 -10): 6 Quality: cramping, aching, sharp Consistency: constant Improves With: nothing Worsens With: nothing Associated Symptoms: denies other symptoms, nausea, vomiting. denies: diarrhea, fever, constipation, dysuria, hematemesis, melena, hematuria, anorexia, syncope, other - Related Data Home Medications Medication Instructions Recorded Confirmed Last Taken Gabapentin [Neurontin] 900 mg PO TID 04/24/19 05/10/19 05/10/19 05:00 Pantoprazole [Protonix TAB] 20 mg PO DAILY 05/10/19 05/10/19 05/10/19 05:00 Adderall XR 20 mg 01/15/20 Unknown Cyclobenzaprine HCl 01/15/20 Unknown busPIRone 01/15/20 Unknown Previous Rx's Medication Instructions Recorded Last Taken Type Acetaminophen [Mapap] 1,000 mg PO QID PRN #30 tablet 03/13/20 Unknown Rx Metoclopramide [Reglan] 10 mg PO Q6H PRN #30 tablet 03/13/20 Unknown Rx diphenhydrAMINE [Benadryl CAP] 25 mg PO Q6HR PRN #30 capsule 03/13/20 Unknown Rx Albuterol Sulfate [Proventil Hfa] 6.7 gm IH Q4HR PRN #1 hfa.aer.ad 04/07/20 Unknown Rx Azithromycin [Zithromax Z-SERAFIN] 250 mg PO ONCE #1 tablet 04/07/20 Unknown Rx Acetaminophen [Tylenol] 500 mg PO Q6HR #30 tablet 04/16/20 Unknown Rx Promethazine [Phenergan] 25 mg PO Q6HR PRN #30 tab 04/16/20 Unknown Rx Promethazine [Phenergan] 25 mg RI Q6HR PRN #15 supp.rect 04/16/20 Unknown Rx Allergies Allergy/AdvReac Type Severity Reaction Status Date / Time egg Allergy Severe Anaphylaxis Verified 04/16/20 17:32 NSAIDS (Non-Steroidal Allergy Severe Unknown Verified 04/16/20 20:04 Anti-Inflamma Sulfa (Sulfonamide Allergy Severe Anaphylaxis Verified 04/16/20 17:32 Antibiotics) ibuprofen Allergy Intermediate Bleeding Verified 04/16/20 17:32 latex Allergy Hives Verified 04/16/20 17:32 plecanatide [From Trulance] Allergy Anaphylaxis Verified 04/16/20 17:32 adhesive tape AdvReac Intermediate Unknown Verified 04/16/20 17:32 metoclopramide [From Reglan] AdvReac Unknown Verified 04/16/20 20:03 ED Review of Systems ROS: Stated complaint: ABD PAIN Other details as noted in HPI Constitutional: denies: chills, fever Eyes: denies: eye pain, eye discharge, vision change ENT: denies: ear pain, throat pain Respiratory: denies: cough, shortness of breath, wheezing Cardiovascular: denies: chest pain, palpitations Endocrine: no symptoms reported Gastrointestinal: abdominal pain, nausea, vomiting. denies: diarrhea Genitourinary: denies: urgency, dysuria, discharge Musculoskeletal: denies: back pain, joint swelling, arthralgia Skin: denies: rash, lesions Neurological: denies: headache, weakness, paresthesias Psychiatric: denies: anxiety, depression Hematological/Lymphatic: denies: easy bleeding, easy bruising ED Past Medical Hx - Past Medical History Previous Medical History?: Yes Hx Hypertension: No Hx Heart Attack/AMI: No Hx GERD: Yes Hx Liver Disease: No Hx Renal Disease: No Hx Headaches / Migraines: Yes (MIGRAINES) Hx Seizures: No Hx Psychiatric Treatment: Yes (ADHD, anxiety) Hx HIV: No Additional medical history: MIGRAINES, PCOS, fibromylagia, IBS - Surgical History Past Surgical History?: Yes Hx Cholecystectomy: Yes Additional Surgical History: C SECTION X3. nerve block on left shoulder - Social History Smoking Status: Never Smoker - Medications Home Medications: Home Medications Medication Instructions Recorded Confirmed Last Taken Type Gabapentin [Neurontin] 900 mg PO TID 04/24/19 05/10/19 05/10/19 05:00 History Pantoprazole [Protonix TAB] 20 mg PO DAILY 05/10/19 05/10/19 05/10/19 05:00 History Adderall XR 20 mg 01/15/20 Unknown History Cyclobenzaprine HCl 01/15/20 Unknown History busPIRone 01/15/20 Unknown History Acetaminophen [Mapap] 1,000 mg PO QID PRN #30 tablet 03/13/20 Unknown Rx Metoclopramide [Reglan] 10 mg PO Q6H PRN #30 tablet 03/13/20 Unknown Rx diphenhydrAMINE [Benadryl CAP] 25 mg PO Q6HR PRN #30 capsule 03/13/20 Unknown Rx Albuterol Sulfate [Proventil Hfa] 6.7 gm IH Q4HR PRN #1 hfa.aer.ad 04/07/20 Unknown Rx Azithromycin [Zithromax Z-SERAFIN] 250 mg PO ONCE #1 tablet 04/07/20 Unknown Rx Acetaminophen [Tylenol] 500 mg PO Q6HR #30 tablet 04/16/20 Unknown Rx Promethazine [Phenergan] 25 mg PO Q6HR PRN #30 tab 04/16/20 Unknown Rx Promethazine [Phenergan] 25 mg RI Q6HR PRN #15 supp.rect 04/16/20 Unknown Rx ED Physical Exam - General Limitations: No Limitations General appearance: alert, in no apparent distress - Head Head exam: Present: atraumatic, normocephalic, normal inspection - Eye Eye exam: Present: normal appearance, PERRL, EOMI Pupils: Present: normal accommodation - ENT ENT exam: Present: normal exam, normal orophraynx, mucous membranes moist, TM's normal bilaterally, normal external ear exam - Neck Neck exam: Present: normal inspection, full ROM - Respiratory Respiratory exam: Present: normal lung sounds bilaterally. Absent: respiratory distress, wheezes, rales, rhonchi, chest wall tenderness, accessory muscle use - Cardiovascular Cardiovascular Exam: Present: regular rate, normal rhythm, normal heart sounds. Absent: systolic murmur, diastolic murmur, rubs, gallop - GI/Abdominal GI/Abdominal exam: Present: soft, tenderness (Palpable suprapubic and left lower quadrant moderate tenderness, no guarding or rebound), normal bowel sounds. Absent: guarding, rebound, hyperactive bowel sounds, hypoactive bowel sounds, organomegaly - Rectal Rectal exam: Present: deferred - Bi-manual exam: Present: other (Pelvic exam deferred, patient prefers on PAPERBOARD MACHINE OPERATOR physician) - Extremities Exam Extremities exam: Present: normal inspection, full ROM, normal capillary refill. Absent: tenderness, pedal edema, joint swelling, calf tenderness - Back Exam Back exam: Present: normal inspection, full ROM. Absent: tenderness, CVA tenderness (R), CVA tenderness (L), muscle spasm, paraspinal tenderness, vertebral tenderness - Neurological Exam Neurological exam: Present: alert, oriented X3, CN II-XII intact, normal gait, reflexes normal - Psychiatric Psychiatric exam: Present: normal affect, normal mood - Skin Skin exam: Present: warm, dry, intact, normal color. Absent: rash ED Course Vital Signs 04/16/20 16:50 Temperature 99.3 F Pulse Rate 83 Respiratory 18 Rate Blood Pressure 111/70 O2 Sat by Pulse 100 Oximetry ED Medical Decision Making - Lab Data Result diagrams: 04/16/20 17:39 04/16/20 17:39 - Radiology Data Radiology results: report reviewed, image reviewed Findings [facility] [address] [place] [address] Ultrasound Report Signed Patient: LOCO SALGADO MR#: [id number] : 1990 Acct:[id number] Age/Sex: 29 / F ADM Date: 04/16/20 Loc: ED Attending Dr: Ordering Physician: CINDY DING Date of Service: 04/16/20 Procedure(s): US OB <= 14 weeks fetus Accession Number(s): [id number] cc: CINDY DING ULTRASOUND OBSTETRIC INDICATION / CLINICAL INFORMATION: LLQ abd pain, n/v, 13 weeks . Clinical Gestational Age (GA): 12.5 weeks.days TECHNIQUE: Transabdominal. COMPARISON: None available. FINDINGS: GESTATIONAL SAC: Well-defined oval shape and intrauterine in location. YOLK SAC: No significant abnormality. EMBRYO/FETUS: No significant abnormality. - [place]-Rump Length = 7.34 cm = 13.3 weeks.days - Heart Rate, beats per minute (if present) = 159 ADNEXA: No significant abnormality. FREE FLUID: None. ADDITIONAL FINDINGS: None. IMPRESSION: 1. Single, living intrauterine with estimated sonographic age of 13.3 weeks.days. Signer Name: Lei Gould MD Signed: 04/16/2020 8:24 PM Workstation Name: [id number] Transcribed By: ERIC Dictated By: Lei Gould MD Electronically Authenticated By: Lei Gould MD Signed Date/Time: 04/16/202023 DD/ 22 TD/TT: - Medical Decision Making This is a A3 29-year-old -Russian female with no past medical history and who is approximately 13 weeks gestation presents to the ED with complaint of acute onset persistent severe diffuse low abdominal pain, worse in the left lower quadrant for the last 12 hours. Patient also complains of intermittent nausea and vomiting but states that this is unusual since she is 13 weeks gestation. 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 In the ED, patient is alert and oriented x3 and is not in distress but appears to be in pain. Patient was treated for pain in the ED. Patient was also treated for nausea and vomiting. Lab test results were reviewed and are all nonactionable including urinalysis. Transvaginal ultrasound shows a single, living intrauterine with estimated sonographic age of 13 weeks and 3 days, and with heart rate of 159 bpm. On reevaluation, patient's pain and nausea are well controlled with medications. Patient was discharged home on medications and advised to observe complete pelvic rest, with no heavy lifting or strenuous physical activity. Patient was advised to follow-up with the PAPERBOARD MACHINE OPERATOR physician in 2 to 3 days for reevaluation or return to the ED immediately if symptoms get worse. - Differential Diagnosis Ovarian cyst; UTI; Muscle strain; Kidney stones Critical care attestation.: If time is entered above; I have spent that time in minutes in the direct care of this critically ill patient, excluding procedure time. ED Disposition Clinical Impression: Abdominal pain during in second trimester, Nausea and vomiting in prior to 22 weeks gestation Disposition: TO HOME OR SELFCARE Is pt being admited?: No Does the pt Need Aspirin: No Condition: Stable Instructions: Abdominal Pain (ED), Acute Nausea and Vomiting (ED) Additional Instructions: Maintain a complete pelvic rest with no physical or strenuous activity. Take Tylenol as needed for pain and antiemetics. Follow-up with your PAPERBOARD MACHINE OPERATOR physician in 2 to 3 days for reevaluation or return to the ED immediately if symptoms get worse. Prescriptions: Acetaminophen [Tylenol] 500 mg PO Q6HR #30 tablet Promethazine [Phenergan] 25 mg PO Q6HR PRN #30 tab PRN Reason: Nausea Promethazine [Phenergan] 25 mg RI Q6HR PRN #15 supp.rect PRN Reason: Nausea Referrals: PRIMARY CARE, [Primary Care Provider] - 3-5 Days Time of Disposition: 20:49 Print Language: JAPANESE
== END 2020-04-16 21:04 | disposition home or self-care (01) ==
LOC: ED 16:19
DX: O26.891 Other specified pregnancy related conditions, first trimester (principal); O21.0 Mild hyperemesis gravidarum; K21.9 Gastro-esophageal reflux disease without esophagitis; F41.9 Anxiety disorder, unspecified; Z90.49 Acquired absence of other specified parts of digestive tract; Z3A.13 13 weeks gestation of pregnancy
CPT/HCPCS: 36415; 76700; 76801; 80053; 81001; 83690; 84702; 85025; 86900; 86901; 96360; 99284; J2765; J7030; Q0169

== ENCOUNTER 2020-05-22 15:55 | Emergency (ER) | payer BC ==
[2020-05-22 16:10] VITALS: BP 131/69
--- NOTE | 2020-05-22 17:05 | Emergency Department Report ---
ED Lower Extremity HPI - General Chief Complaint: Extremity Problem,Nontraumatic Stated Complaint: KNEE, FOOT PAIN Time Seen by Provider: 05/22/20 16:51 Source: patient Mode of arrival: Ambulatory Limitations: No Limitations - History of Present Illness Initial Comments: Patient is a 30-year-old female that presents emergency room with complaints of right knee pain. Pain states it started last night. 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 Patient states she came to work today and she is having difficulty walking due to the pain. Patient states she is not able to take ibuprofen because she is . Patient states she is 18 weeks . Patient states she is a G7, P3 patient states she is being followed by CONSTRUCTION OPERATIONS MANAGER. Patient states she is taking a vitamin. Patient states the pain is a 10 out of 10. Pain states the pain is worse with movement, ambulating, walking, palpation. Patient states the pain is better with rest. Patient states she might have twisted her knee and is not sure at work.. MD Complaint: knee injury -: Sudden Injury: Knee: Right Type of Injury: unknown Place: other Severity: severe Severity scale (0 -10): 10 Improves With: rest Worsens With: weight bearing, movement, palpation Context: other (Patient states she possibly twisted her knee.) Associated Symptoms: able to partially bear weight - Related Data Home Medications Medication Instructions Recorded Confirmed Last Taken Gabapentin [Neurontin] 900 mg PO TID 04/24/19 05/10/19 05/10/19 05:00 Pantoprazole [Protonix TAB] 20 mg PO DAILY 05/10/19 05/10/19 05/10/19 05:00 Adderall XR 20 mg 01/15/20 Unknown Cyclobenzaprine HCl 01/15/20 Unknown busPIRone 01/15/20 Unknown Previous Rx's Medication Instructions Recorded Last Taken Type Acetaminophen [Mapap] 1,000 mg PO QID PRN #30 tablet 03/13/20 Unknown Rx Metoclopramide [Reglan] 10 mg PO Q6H PRN #30 tablet 03/13/20 Unknown Rx diphenhydrAMINE [Benadryl CAP] 25 mg PO Q6HR PRN #30 capsule 03/13/20 Unknown Rx Albuterol Sulfate [Proventil Hfa] 6.7 gm IH Q4HR PRN #1 hfa.aer.ad 04/07/20 Unknown Rx Azithromycin [Zithromax Z-SERAFIN] 250 mg PO ONCE #1 tablet 04/07/20 Unknown Rx Acetaminophen [Tylenol] 500 mg PO Q6HR #30 tablet 04/16/20 Unknown Rx Promethazine [Phenergan] 25 mg PO Q6HR PRN #30 tab 04/16/20 Unknown Rx Promethazine [Phenergan] 25 mg IN Q6HR PRN #15 supp.rect 04/16/20 Unknown Rx Allergies Allergy/AdvReac Type Severity Reaction Status Date / Time egg Allergy Severe Anaphylaxis Verified 05/22/20 16:09 NSAIDS (Non-Steroidal Allergy Severe Unknown Verified 05/22/20 16:09 Anti-Inflamma Sulfa (Sulfonamide Allergy Severe Anaphylaxis Verified 05/22/20 16:09 Antibiotics) ibuprofen Allergy Intermediate Bleeding Verified 05/22/20 16:09 latex Allergy Hives Verified 05/22/20 16:09 plecanatide [From Trulance] Allergy Anaphylaxis Verified 05/22/20 16:09 adhesive tape AdvReac Intermediate Unknown Verified 05/22/20 16:09 metoclopramide [From Reglan] AdvReac Unknown Verified 05/22/20 16:09 ED Review of Systems ROS: Stated complaint: KNEE, FOOT PAIN Other details as noted in HPI Constitutional: denies: chills, fever Eyes: denies: eye pain, eye discharge, vision change ENT: denies: ear pain, throat pain Respiratory: denies: cough, shortness of breath, wheezing Cardiovascular: denies: chest pain, palpitations Endocrine: no symptoms reported Gastrointestinal: denies: abdominal pain, nausea, diarrhea Genitourinary: denies: urgency, dysuria, discharge Musculoskeletal: denies: back pain, joint swelling, arthralgia Skin: denies: rash, lesions Neurological: denies: headache, weakness, paresthesias Psychiatric: denies: anxiety, depression Hematological/Lymphatic: denies: easy bleeding, easy bruising ED Past Medical Hx - Past Medical History Previous Medical History?: Yes Hx Hypertension: No Hx Heart Attack/AMI: No Hx GERD: Yes Hx Liver Disease: No Hx Renal Disease: No Hx Headaches / Migraines: Yes (MIGRAINES) Hx Seizures: No Hx Psychiatric Treatment: Yes (ADHD, anxiety) Hx HIV: No Additional medical history: MIGRAINES, PCOS, fibromylagia, IBS - Surgical History Past Surgical History?: Yes Hx Cholecystectomy: Yes Additional Surgical History: C SECTION X3. nerve block on left shoulder - Family History Family history: no significant - Social History Smoking Status: Never Smoker Substance Use Type: None - Medications Home Medications: Home Medications Medication Instructions Recorded Confirmed Last Taken Type Gabapentin [Neurontin] 900 mg PO TID 04/24/19 05/10/19 05/10/19 05:00 History Pantoprazole [Protonix TAB] 20 mg PO DAILY 05/10/19 05/10/19 05/10/19 05:00 History Adderall XR 20 mg 01/15/20 Unknown History Cyclobenzaprine HCl 01/15/20 Unknown History busPIRone 01/15/20 Unknown History Acetaminophen [Mapap] 1,000 mg PO QID PRN #30 tablet 03/13/20 Unknown Rx Metoclopramide [Reglan] 10 mg PO Q6H PRN #30 tablet 03/13/20 Unknown Rx diphenhydrAMINE [Benadryl CAP] 25 mg PO Q6HR PRN #30 capsule 03/13/20 Unknown Rx Albuterol Sulfate [Proventil Hfa] 6.7 gm IH Q4HR PRN #1 hfa.aer.ad 04/07/20 Unknown Rx Azithromycin [Zithromax Z-SERAFIN] 250 mg PO ONCE #1 tablet 04/07/20 Unknown Rx Acetaminophen [Tylenol] 500 mg PO Q6HR #30 tablet 04/16/20 Unknown Rx Promethazine [Phenergan] 25 mg PO Q6HR PRN #30 tab 04/16/20 Unknown Rx Promethazine [Phenergan] 25 mg IN Q6HR PRN #15 supp.rect 04/16/20 Unknown Rx ED Physical Exam - General Limitations: No Limitations General appearance: alert, in no apparent distress - Head Head exam: Present: atraumatic, normocephalic - Eye Eye exam: Present: normal appearance - ENT ENT exam: Present: mucous membranes moist - Neck Neck exam: Present: normal inspection - Respiratory Respiratory exam: Present: normal lung sounds bilaterally. Absent: respiratory distress - Cardiovascular Cardiovascular Exam: Present: regular rate, normal rhythm. Absent: systolic murmur, diastolic murmur, rubs, gallop - GI/Abdominal GI/Abdominal exam: Present: soft, normal bowel sounds - Extremities Exam Extremities exam: Present: normal inspection, full ROM, tenderness (To the right knee). Absent: normal capillary refill, pedal edema, joint swelling, calf tenderness - Back Exam Back exam: Present: normal inspection - Neurological Exam Neurological exam: Present: alert, oriented X3 - Psychiatric Psychiatric exam: Present: normal affect, normal mood - Skin Skin exam: Present: warm, dry, intact, normal color. Absent: rash ED Course Vital Signs 05/22/20 16:06 Temperature 98.0 F Pulse Rate 109 H Respiratory 18 Rate Blood Pressure 131/69 O2 Sat by Pulse 99 Oximetry - Reevaluation(s) Reevaluation #1: I discussed all clinical findings with patient. I discussed plan of care with patient. Patient agrees with plan of care. Patient is stable for discharge. Patient will be discharged home. Patient given discharge instructions. Patient voiced understanding of discharge instructions. 05/22/20 17:03 ED Lower Extremity MDM - Medical Decision Making Patient is a 30-year-old female who presents emergency room with right knee pain. Patient has no trauma. Patient did not fall. Patient medical exam shows a possible knee sprain versus a meniscal tear. Patient will require an MRI with an orthopedist. Patient referred to an orthopedist. Patient given discharge instruction. Patient stable for discharge. Patient not require further emergency medical treatment. - Differential Diagnosis Knee sprain, knee pain, knee meniscal injury Critical care attestation.: If time is entered above; I have spent that time in minutes in the direct care of this critically ill patient, excluding procedure time. ED Disposition Clinical Impression: Knee sprain Qualifiers: Encounter type: initial encounter Involved ligament of knee: unspecified ligament Laterality: right Qualified Code(s): S83.91XA - Sprain of unspecified site of right knee, initial encounter Knee pain Qualifiers: Chronicity: acute Laterality: right Qualified Code(s): M25.561 - Pain in right knee Disposition: DC-01 TO HOME OR SELFCARE Is pt being admited?: No Does the pt Need Aspirin: No Condition: Stable Instructions: Knee Sprain (ED) Additional Instructions: Patient to follow-up with primary care in 2 to 3 days. Patient to follow-up with orthopedist in 2 to 3 days. Patient to rest. Patient to increase water. Patient to avoid strenuous exercise or heavy lifting until cleared by the pedis. Patient to take Tylenol as needed for pain. Patient to take meds as directed. Patient to continue with CONSTRUCTION OPERATIONS MANAGER. Patient to continue vitamin. Patient to return to the ER if condition worsens, changes or new symptoms arise. Referrals: TRESA LÓPEZ MD [Staff Physician] - 2-3 Days Forms: Work/School Release Form(ED) Time of Disposition: 17:05
== END 2020-05-22 17:53 | disposition home or self-care (01) ==
LOC: ED 15:55
DX: S83.91XA Sprain of unspecified site of right knee, initial encounter (principal); K21.9 Gastro-esophageal reflux disease without esophagitis; G43.909 Migraine, unspecified, not intractable, without status migrainosus; E28.2 Polycystic ovarian syndrome; F90.9 Attention-deficit hyperactivity disorder, unspecified type; Z91.012 Allergy to eggs; Z91.040 Latex allergy status; Z88.2 Allergy status to sulfonamides; Z88.6 Allergy status to analgesic agent; F31.9 Bipolar disorder, unspecified; X58.XXXA Exposure to other specified factors, initial encounter; Y93.89 Activity, other specified; Y92.89 Other specified places as the place of occurrence of the external cause; Y99.8 Other external cause status
CPT/HCPCS: 99282

== ENCOUNTER 2020-06-18 19:59 | Emergency (ER) | payer BC ==
[2020-06-18] MEDS ORDERED: diphenhydrAMINE 50 MG/ML VIAL IV ONE (21:38)
[2020-06-18] MEDS ORDERED: SODIUM CHLORIDE 0.9% 1000 ML 1,000 ML IV ONE (21:38)
[2020-06-18] MEDS ORDERED: BUTALB/ACETAMINOPHEN/CAFFEINE TAB PO ONE (21:39)
[2020-06-18] MEDS ORDERED: PROCHLORPERAZINE EDISYLATE 10 MG/2 ML VIAL IV ONE (22:15)
[2020-06-18] MEDS ORDERED: ACETAMINOPHEN 500 MG TAB PO ONE (23:55)
[2020-06-18] MEDS ORDERED: PROMETHAZINE 25 MG TAB PO ONE (23:57)
[2020-06-18] MEDS ORDERED: MORPHINE 2 MG/1 ML INJ IV ONE (23:57)
--- NOTE | 2020-06-19 01:54 | Emergency Department Report ---
ED Headache HPI - General Chief Complaint: Headache Stated Complaint: SEVERE HEADACHE Source: patient - History of Present Illness Initial Comments: Patient is a A0 30-year-old -[place] Citizen female who is approximately 21 weeks gestation and who presented to the ED with a history of migraine headaches, GERD, ADHD, IBS, anxiety and depression, and fibromyalgia who presents to the ED with complaint of acute exacerbation of her chronic migraine headaches for the last 2 days. Patient states that she has been taking her prescription medications at home with no relief. Patient states that she has been taking Fioricet, Percocet, Tylenol, Reglan and Benadryl with no relief. Patient states that in the last 6 hours, the pain has worsened such that she is not able to function because of persistent nausea and vomiting and intractable right temporal and frontal scalp headache. Patient denies dizziness, syncope, change in vision, neck pain, chest pain, shortness of breath, abdominal pain, diarrhea, seizures, vision loss, hearing loss, vaginal bleeding, fever, chills, cough or sore throat, nasal and sinus congestion. Timing/Duration: 24 hours, constant, waxing and waning Quality: severe, constant, sharp Head Injury Location: frontal, temporal (RIGHT) Recent Head Trauma: no recent headache/trauma Modifying Factors: improves with: medication Associated Symptoms: denies symptoms, nausea/vomiting. denies: confusion, fever/chills, flushing, loss of consciousness, nasal congestion, nasal drainage, numbness in legs/feet, rash, seizures, sinus infection, stiff neck, vision changes, weakness, other Allergies/Adverse Reactions: Allergies egg Allergy (Severe, Verified 05/22/20 16:09) Anaphylaxis NSAIDS (Non-Steroidal Anti-Inflamma Allergy (Severe, Verified 05/22/20 16:09) Unknown pt c/o Palpitations, nervous, had to take benadryl Sulfa (Sulfonamide Antibiotics) Allergy (Severe, Verified 05/22/20 16:09) Anaphylaxis SWELING,NUMBNESS ibuprofen Allergy (Intermediate, Verified 05/22/20 16:09) Bleeding latex Allergy (Verified 05/22/20 16:09) Hives plecanatide [From Trulance] Allergy (Verified 05/22/20 16:09) Anaphylaxis adhesive tape Adverse Reaction (Intermediate, Verified 05/22/20 16:09) Unknown PAPER TAPE OK metoclopramide [From Reglan] Adverse Reaction (Verified 05/22/20 16:09) Unknown Home Medications: Ambulatory Orders Gabapentin [Neurontin] 900 mg PO TID 04/24/19 Pantoprazole [Protonix TAB] 20 mg PO DAILY 05/10/19 Adderall XR 20 mg 01/15/20 Cyclobenzaprine HCl 01/15/20 busPIRone 01/15/20 Acetaminophen [Mapap] 1,000 mg PO QID PRN #30 tablet 03/13/20 Metoclopramide [Reglan] 10 mg PO Q6H PRN #30 tablet 03/13/20 diphenhydrAMINE [Benadryl CAP] 25 mg PO Q6HR PRN #30 capsule 03/13/20 Albuterol Sulfate [Proventil Hfa] 6.7 gm IH Q4HR PRN #1 hfa.aer.ad 04/07/20 Azithromycin [Zithromax Z-SERAFIN] 250 mg PO ONCE #1 tablet 04/07/20 Acetaminophen [Tylenol] 500 mg PO Q6HR #30 tablet 04/16/20 Promethazine [Phenergan] 25 mg PO Q6HR PRN #30 tab 04/16/20 Promethazine [Phenergan] 25 mg WA Q6HR PRN #15 supp.rect 04/16/20 Butalb/Acetamin/Caff 50-325-40 [Fioricet 50-325-40] 1 - 2 tab PO Q6HR PRN #15 tab 06/19/20 Promethazine [Phenergan] 25 mg PO Q6HR PRN #30 tab 06/19/20 ED Review of Systems ROS: Stated complaint: SEVERE HEADACHE Other details as noted in HPI Constitutional: denies: chills, fever Eyes: denies: eye pain, eye discharge, vision change ENT: denies: ear pain, throat pain Respiratory: denies: cough, shortness of breath, wheezing Cardiovascular: denies: chest pain, palpitations Endocrine: no symptoms reported Gastrointestinal: nausea, vomiting. denies: abdominal pain, diarrhea Genitourinary: denies: urgency, dysuria, discharge Musculoskeletal: denies: back pain, joint swelling, arthralgia Skin: denies: rash, lesions Neurological: headache. denies: weakness, paresthesias Psychiatric: denies: anxiety, depression Hematological/Lymphatic: denies: easy bleeding, easy bruising ED Past Medical Hx - Past Medical History Previous Medical History?: Yes Hx Hypertension: No Hx Heart Attack/AMI: No Hx GERD: Yes Hx Liver Disease: No Hx Renal Disease: No Hx Headaches / Migraines: Yes (MIGRAINES) Hx Seizures: No Hx Psychiatric Treatment: Yes (ADHD, anxiety) Hx HIV: No Additional medical history: MIGRAINES, PCOS, fibromylagia, IBS - Surgical History Past Surgical History?: Yes Hx Cholecystectomy: Yes Additional Surgical History: C SECTION X3. nerve block on left shoulder - Social History Smoking Status: Never Smoker Substance Use Type: None - Medications Home Medications: Home Medications Medication Instructions Recorded Confirmed Last Taken Type Gabapentin [Neurontin] 900 mg PO TID 04/24/19 05/10/19 05/10/19 05:00 History Pantoprazole [Protonix TAB] 20 mg PO DAILY 05/10/19 05/10/19 05/10/19 05:00 History Adderall XR 20 mg 01/15/20 Unknown History Cyclobenzaprine HCl 01/15/20 Unknown History busPIRone 01/15/20 Unknown History Acetaminophen [Mapap] 1,000 mg PO QID PRN #30 tablet 03/13/20 Unknown Rx Metoclopramide [Reglan] 10 mg PO Q6H PRN #30 tablet 03/13/20 Unknown Rx diphenhydrAMINE [Benadryl CAP] 25 mg PO Q6HR PRN #30 capsule 03/13/20 Unknown Rx Albuterol Sulfate [Proventil Hfa] 6.7 gm IH Q4HR PRN #1 hfa.aer.ad 04/07/20 Unknown Rx Azithromycin [Zithromax Z-SERAFIN] 250 mg PO ONCE #1 tablet 04/07/20 Unknown Rx Acetaminophen [Tylenol] 500 mg PO Q6HR #30 tablet 04/16/20 Unknown Rx Promethazine [Phenergan] 25 mg PO Q6HR PRN #30 tab 04/16/20 Unknown Rx Promethazine [Phenergan] 25 mg WA Q6HR PRN #15 supp.rect 04/16/20 Unknown Rx Butalb/Acetamin/Caff 50-325-40 1 - 2 tab PO Q6HR PRN #15 tab 06/19/20 Unknown Rx [Fioricet 50-325-40] Promethazine [Phenergan] 25 mg PO Q6HR PRN #30 tab 06/19/20 Unknown Rx ED Physical Exam - General Limitations: No Limitations General appearance: alert, in no apparent distress - Head Head exam: Present: atraumatic, normocephalic, normal inspection - Eye Eye exam: Present: normal appearance, PERRL, EOMI Pupils: Present: normal accommodation - ENT ENT exam: Present: normal exam, normal orophraynx, mucous membranes moist, TM's normal bilaterally, normal external ear exam - Neck Neck exam: Present: normal inspection, full ROM - Respiratory Respiratory exam: Present: normal lung sounds bilaterally. Absent: respiratory distress, wheezes, rales, rhonchi, chest wall tenderness, accessory muscle use, decreased breath sounds - Cardiovascular Cardiovascular Exam: Present: regular rate, normal rhythm. Absent: systolic murmur, diastolic murmur, rubs, gallop - GI/Abdominal GI/Abdominal exam: Present: soft, normal bowel sounds. Absent: distended, tenderness, guarding, rebound, hyperactive bowel sounds, hypoactive bowel sounds - Extremities Exam Extremities exam: Present: normal inspection, full ROM, normal capillary refill - Back Exam Back exam: Present: normal inspection, full ROM. Absent: tenderness, CVA tenderness (R), CVA tenderness (L), muscle spasm, paraspinal tenderness, vertebral tenderness - Neurological Exam Neurological exam: Present: alert, oriented X3, CN II-XII intact, normal gait, reflexes normal - Psychiatric Psychiatric exam: Present: normal affect, normal mood - Skin Skin exam: Present: warm, dry, intact, normal color. Absent: rash ED Course Vital Signs 06/18/20 20:18 Temperature 98.6 F Pulse Rate 93 H Respiratory 18 Rate Blood Pressure 107/69 O2 Sat by Pulse 98 Oximetry ED Medical Decision Making - Medical Decision Making This is a A0 30-year-old -[place] Citizen female who is approximately 21 weeks gestation and who presented to the ED with a history of migraine headaches, GERD, ADHD, IBS, anxiety and depression, and fibromyalgia who presents to the ED with complaint of acute exacerbation of her chronic migraine headaches for the last 2 days. Patient states that she has been taking her prescription medications at home with no relief. Patient states that she has been taking Fioricet, Percocet, Tylenol, Reglan and Benadryl with no relief. Patient states that in the last 6 hours, the pain has worsened such that she is not able to function because of persistent nausea and vomiting and intractable right temporal and frontal scalp headache. In the ED, patient is alert and oriented x3 and is not in distress but appears to be in pain. Patient was treated in the ED with various combinations of medications and cocktails in order to control her intractable migraine headaches, while being cautious of the fact that the patient is also 21 weeks gestation. On reevaluation, patient's headache improved significantly and patient is no longer photophobic, has not had any nausea or vomiting in the ED after being treated for it. Patient was discharged home and advised to continue taking her regular medications and to follow-up with PROCESS CONTROL OPERATOR physician in 3 to 5 days for reevaluation or return to the ED immediately if symptoms get worse. - Differential Diagnosis Migraine headache; Dehydration; Sinus headache; sinusitis Critical care attestation.: If time is entered above; I have spent that time in minutes in the direct care of this critically ill patient, excluding procedure time. ED Disposition Clinical Impression: Nausea and vomiting in adult patient Migraine headache without aura Qualifiers: Status migrainosus presence: with status migrainosus Intractability: intractable Qualified Code(s): G43.011 - Migraine without aura, intractable, with status migrainosus Disposition: TO HOME OR SELFCARE Is pt being admited?: No Does the pt Need Aspirin: No Condition: Stable Instructions: Migraine Headache (ED), Acute Nausea and Vomiting (ED) Additional Instructions: Take your regular medications with food, drink plenty of fluids and follow-up with your PROCESS CONTROL OPERATOR physician or primary care physician in 5 to 7 days for reevaluation. Return to the ED immediately if symptoms get worse. Prescriptions: Butalb/Acetamin/Caff 50-325-40 [Fioricet 50-325-40] 1 - 2 tab PO Q6HR PRN #15 tab PRN Reason: Headache Promethazine [Phenergan] 25 mg PO Q6HR PRN #30 tab PRN Reason: Nausea Referrals: [facility] [Provider Group] - 3-5 Days Forms: Work/School Release Form(ED) Time of Disposition: 01:56 Print Language: COMORAN
[2020-06-19 07:56] VITALS: BP 107/66
== END 2020-06-19 02:10 | disposition home or self-care (01) ==
LOC: ED 19:59
DX: G43.009 Migraine without aura, not intractable, without status migrainosus (principal); R11.2 Nausea with vomiting, unspecified; K21.9 Gastro-esophageal reflux disease without esophagitis; F41.9 Anxiety disorder, unspecified; F90.9 Attention-deficit hyperactivity disorder, unspecified type; Z90.49 Acquired absence of other specified parts of digestive tract; Z98.890 Other specified postprocedural states; Z79.899 Other long term (current) drug therapy; Z91.012 Allergy to eggs; Z88.8 Allergy status to other drugs, medicaments and biological substances
CPT/HCPCS: 96361; 96374; 96375; 99283; J0780; J1200; J2270; J7030; Q0169

== ENCOUNTER 2020-06-28 18:55 | Outpatient (CLI) | payer BC ==
[2020-06-28 19:19] VITALS: BP 117/71
[2020-06-28] MEDS ORDERED: TERBUTALINE 1 MG/1 ML INJ SUB-Q ONE (19:43)
[2020-06-28 20:00] LABS: Amorphous Crystals,Urine Few; Bacteria,Urine 3+ /HPF (Negative); Bilirubin,Urine NEG (Negative); Blood,Urine NEG (Negative); Color,Urine Yellow (Yellow); Mucus,Urine FEW /HPF; Protein,Urine <15 mg/dL mg/dL (Negative); Urobilinogen,Urine < 2.0 mg/dL (<2.0)
== END 2020-06-28 20:27 | disposition home or self-care (01) ==
LOC: TRG 18:55 → APU 18:56 → TRG 20:27
PROVIDERS: ATTEND Obstetrics & Gynecology
DX: O62.9 Abnormality of forces of labor, unspecified (principal); O26.892 Other specified pregnancy related conditions, second trimester; R51 Headache; Z3A.23 23 weeks gestation of pregnancy
CPT/HCPCS: 59025; 81001; 96372; J3105

== ENCOUNTER 2020-07-23 16:31 | Outpatient (CLI) | payer BC ==
[2020-07-23 17:50] VITALS: BP 115/69
[2020-07-23] MEDS ORDERED: diphenhydrAMINE 50 MG CAP PO SCH (19:00)
[2020-07-23] MEDS ORDERED: LACTATED RINGERS 1,000 ML IV ONE (20:02)
[2020-07-23 20:09] LABS: Alanine Aminotransferase 16 units/L (7-56); Albumin 3.5 g/dL (3.9-5); BUN/Creatinine Ratio 8; Blood Urea Nitrogen 5 mg/dL (7-17); Calcium 9.5 mg/dL (8.4-10.2); Hemolysis Index 9
[2020-07-23 20:47] LABS: Bilirubin,Urine NEG (Negative); Blood,Urine NEG (Negative); Color,Urine Yellow (Yellow); Protein,Urine <15 mg/dL mg/dL (Negative); Urobilinogen,Urine < 2.0 mg/dL (<2.0)
[2020-07-23] MEDS ORDERED: TERBUTALINE 1 MG/1 ML INJ SUB-Q ONE (23:53)
[2020-07-23] MEDS ORDERED: diphenhydrAMINE 50 MG CAP PO PRN (23:53)
== END 2020-07-24 00:59 | disposition home or self-care (01) ==
LOC: TRG 16:31 → APU 16:31 → TRG 07-24 00:59
PROVIDERS: ATTEND Obstetrics & Gynecology
DX: O99.712 Diseases of the skin and subcutaneous tissue complicating pregnancy, second trimester (principal); L29.9 Pruritus, unspecified; F50.89 Other specified eating disorder; Z3A.27 27 weeks gestation of pregnancy
CPT/HCPCS: 36415; 59025; 80053; 81001; 82239; 82731; 87086; 96360; 96361; 96372; J3105; J7120

== ENCOUNTER 2020-08-19 11:42 | Observation (INO) | payer BC ==
[2020-08-19] MEDS ORDERED: LACTATED RINGERS 500 ML IV ONE ×2 (12:55→17:42)
[2020-08-19] MEDS: TERBUTALINE 1 MG/1 ML INJ SUB-Q NR ×2 (14:10→14:52)
[2020-08-19 14:23] LABS: Bacteria,Urine 1+ /HPF (Negative); Bilirubin,Urine NEG (Negative); Blood,Urine NEG (Negative); Color,Urine Yellow (Yellow); Mucus,Urine FEW /HPF; Protein,Urine <15 mg/dL mg/dL (Negative); RBC,Urine < 1.0 /HPF (0.0-6.0); Urobilinogen,Urine < 2.0 mg/dL (<2.0)
[2020-08-19] MEDS: LACTATED RINGERS 1,000 ML IV SCH ×2 (18:49→23:46)
[2020-08-19] MEDS: oxyCODONE /ACETAMINOPHEN 5-325MG TAB PO PRN (20:51)
[2020-08-20] MEDS ORDERED: MAGNESIUM SULFATE 4 GM/100 ML BAG IV ONE (02:15)
[2020-08-20] MEDS: fentaNYL 100 MCG/2 ML INJ IV PRN ×2 (02:31→20:55)
[2020-08-20] MEDS: BETAMET ACET/BETAMET NA PH 6 MG/ML INJ 5 ML MDV IM SCH (02:37)
[2020-08-20] MEDS: MAGNESIUM SULFATE 40GM/1000ML 40 GM/1,000 ML BAG IV SCH ×2 (03:02→22:22)
[2020-08-20] MEDS: oxyCODONE /ACETAMINOPHEN 5-325MG TAB PO PRN ×2 (07:40→20:24)
--- NOTE | 2020-08-20 07:43 | History and Physical Report ---
History of Present Illness Date of examination: 08/20/20 Date of admission: 08/19/20 17:42 Chief complaint: contractions History of present illness: Pt is a 30 year old -[place] female CHE 10/25/20 at 30w4d presents with contractions overnight. She was observed in triage and continued to have contractions despite multiple doses of terbutaline. She was started on magnesium sulfate and steroid course for lung maturity initiated. She reports irregular contractions, but denies vaginal bleeding and leakage of fluid. She has had care at [facility] since 11 wks with comanagement by [facility] complicated by ADHD, Obesity, Fibromyalgia, Migraines, GERD, H/o endometrial ablation and ovarian vein emobolization, genital herpes, in somnia, IBS, LGA fetus, multiple drug allergies, nausea and vomiting in on Phenergan and Bonjesta PRN, Quad screen positive for Down's Syndrome, NIPT low risk, and three prior sections. Her GBS status is unknown. She does not desire future fertility. Past History Past Medical History: migraines, GERD, other (Anxiety, ADHD, Fibromyalgia, IBS) Past Surgical History: cholecystectomy, THERAPEUTIC ASSISTANT/uterine surgery (ovarian vein embolization, endometrial ablation ), section (x 3 ) THERAPEUTIC ASSISTANT History: herpes Family/Genetic History: cancer Social history: no significant social history, - Obstetrical History Expected Date of Delivery: 10/25/20 Actual Gestation: 30 Week(s) 4 Day(s) : 7 Para: 3 Hx # Term Pregnancies: 3 Number of Pregnancies: 0 Spontaneous Abortions: 3 Induced : 0 Number of Living Children: 3 Medications and Allergies Allergies Allergy/AdvReac Type Severity Reaction Status Date / Time egg Allergy Severe Anaphylaxis Verified 05/22/20 16:09 NSAIDS (Non-Steroidal Allergy Severe Unknown Verified 05/22/20 16:09 Anti-Inflamma Sulfa (Sulfonamide Allergy Severe Anaphylaxis Verified 05/22/20 16:09 Antibiotics) ibuprofen Allergy Intermediate Bleeding Verified 05/22/20 16:09 latex Allergy Hives Verified 05/22/20 16:09 plecanatide [From Trulance] Allergy Anaphylaxis Verified 05/22/20 16:09 adhesive tape AdvReac Intermediate Unknown Verified 05/22/20 16:09 metoclopramide [From Reglan] AdvReac Unknown Verified 05/22/20 16:09 Home Medications Medication Instructions Recorded Confirmed Last Taken Type Pantoprazole [Protonix TAB] 20 mg PO DAILY 05/10/19 08/20/20 05/10/19 05:00 History busPIRone 15 mg PO DAILY 01/15/20 08/20/20 Unknown History Albuterol Sulfate [Proventil Hfa] 6.7 gm IH Q4HR PRN #1 hfa.aer.ad 04/07/20 08/20/20 Unknown Rx Topiramate (Nf) [Trokendi XR CAP] 100 mg PO DAILY 08/20/20 08/20/20 Unknown History oxyCODONE /ACETAMINOPHEN [Percocet 1 tab PO Q6HR 08/20/20 08/20/20 Unknown History 5/325 mg] Active Meds: Active Medications Betamethasone Acet/Betameth SodPhos (Celestone Soluspan) 12 mg IM Q24H ERINN Stop: 08/21/20 03:01 Last Admin: 08/20/20 02:37 Dose: 12 mg Documented by: Fentanyl (Sublimaze) 100 mcg IV Q2H PRN PRN Reason: Pain , Severe (7-10) Last Admin: 08/20/20 02:31 Dose: 100 mcg Documented by: Lactated Ringer's (Lactated Ringers) 1,000 mls @ 125 mls/hr IV DIRECT ERINN Last Admin: 08/19/20 23:46 Dose: 125 mls/hr Documented by: Magnesium Sulfate (Magnesium Sulfate 40gm/1000ml) 40 gm in 1,000 mls @ 50 mls/hr IV DIRECT ERINN Last Admin: 08/20/20 03:02 Dose: 2 gm/hr, 50 mls/hr Documented by: Oxycodone/Acetaminophen (Percocet 5/325) 1 tab PO Q6H PRN PRN Reason: Pain, Moderate (4-6) Last Admin: 08/20/20 07:40 Dose: 1 tab Documented by: Review of Systems All systems: negative - Vital Signs Vital signs: Vital Signs Temp Pulse Resp BP Pulse Ox 98.3 F 112 H 20 96/59 97 08/19/20 12:19 08/19/20 12:19 08/19/20 12:19 08/19/20 12:19 08/19/20 12:19 Temp Pulse Resp BP Pulse Ox 97.9 F 91 H 18 98/54 98 08/20/20 02:53 08/20/20 07:38 08/20/20 06:00 08/20/20 07:19 08/20/20 07:38 - Physical Exam Breasts: Positive: deferred Abdomen: Positive: soft (gravid, obese) Uterus: Positive: enlarged (gravid) Extremities: Positive: normal - Obstetrical FHR: auscultation normal Uterine Contraction Monitor Mode: External Cervical Dilatation: 1 (per RN) Uterine Contraction Pattern: Irregular Uterine Tone Measurement Phase: Resting Uterine Contraction Intensity: Mild Results Result Diagrams: 08/20/20 10:41 All other labs normal. Assessment and Plan A: IUP at 30w4d Labor Previous section x 3 Undesired Fertility ADHD Obesity Fibromyalgia Migraines GERD H/o endometrial ablation and ovarian vein emobolization Genital herpes Insomnia IBS LGA fetus Multiple drug allergies Nausea and vomiting in on Phenergan and Bonjesta PRN, Quad screen positive for Down's Syndrome, NIPT low risk GBS unknown P: Admit to antepartum service IV Magnesium for tocolysis Betamethasone for lung maturity Closely monitor maternal and status
[2020-08-20] MEDS: PROMETHAZINE 25 MG TAB PO PRN ×2 (10:23→19:17)
[2020-08-20 11:12] LABS: Hematocrit 30.2 % (30.3-42.9); Hemoglobin 9.4 gm/dl (10.1-14.3); Mean Corpuscular HGB Conc 31 % (30-34); Mean Corpuscular Volume 73 fl (79-97); Platelet Count 278 K/mm3 (140-440); Red Blood Count 4.13 M/mm3 (3.65-5.03); Red Cell Distribution Width 15.6 % (13.2-15.2)
[2020-08-20] MEDS: hydrOXYzine HCL 100 MG/2 ML INJ IM SCH (12:28)
[2020-08-20] MEDS: PANTOPRAZOLE 40 MG INJ IV SCH ×2 (14:09→22:21)
[2020-08-20] MEDS: LACTATED RINGERS 1,000 ML IV SCH ×2 (15:31→17:14)
[2020-08-20] MEDS ORDERED: ONDANSETRON 4 MG/2 ML INJ IV PRN (18:00)
[2020-08-21] MEDS: BETAMET ACET/BETAMET NA PH 6 MG/ML INJ 5 ML MDV IM SCH (02:33)
[2020-08-21] MEDS: hydrOXYzine HCL 100 MG/2 ML INJ IM SCH (02:34)
[2020-08-21] MEDS: LACTATED RINGERS 1,000 ML IV SCH (03:23)
[2020-08-21 07:01] VITALS: BP 101/55
--- NOTE | 2020-08-21 07:30 | Progress Note ---
Assessment and Plan - Patient Problems (1) contractions Current Visit: Yes Status: Acute Plan to address problem: Patient doing well Remains clinically stable Discharge home Subjective - Subjective Date of service: 08/21/20 Interval history: Patient has completed her magnesium therapy and steroids. She denies any current contractions. She states that her pain is improved. Patient reports: no new complaints, no loss of fluid Objective - Vital Signs Vital Signs: Vital Signs - 12hr 08/20/20 08/20/20 08/20/20 19:34 19:39 19:44 Temperature Pulse Rate 103 H 100 H 92 H Respiratory Rate Blood Pressure Blood Pressure [Right] O2 Sat by Pulse 99 99 100 Oximetry 08/20/20 08/20/20 08/20/20 19:49 19:54 19:59 Temperature Pulse Rate 87 93 H 103 H Respiratory Rate Blood Pressure Blood Pressure [Right] O2 Sat by Pulse 100 99 99 Oximetry 08/20/20 08/20/20 08/20/20 20:00 20:04 20:09 Temperature 98.2 F Pulse Rate 87 98 H 103 H Respiratory 18 Rate Blood Pressure Blood Pressure 98/53 [Right] O2 Sat by Pulse 98 100 99 Oximetry 08/20/20 08/20/20 08/20/20 20:14 20:19 20:24 Temperature Pulse Rate 94 H 92 H 92 H Respiratory Rate Blood Pressure Blood Pressure [Right] O2 Sat by Pulse 99 99 100 Oximetry 08/20/20 08/20/20 08/20/20 20:29 20:34 20:39 Temperature Pulse Rate 90 88 88 Respiratory Rate Blood Pressure Blood Pressure [Right] O2 Sat by Pulse 100 100 100 Oximetry 08/20/20 08/20/20 08/20/20 20:44 20:49 20:54 Temperature Pulse Rate 93 H 93 H 96 H Respiratory Rate Blood Pressure Blood Pressure [Right] O2 Sat by Pulse 100 99 100 Oximetry 08/20/20 08/20/20 08/20/20 20:55 20:59 21:04 Temperature Pulse Rate 96 H 97 H Respiratory 18 Rate Blood Pressure Blood Pressure [Right] O2 Sat by Pulse 99 99 Oximetry 08/20/20 08/20/20 08/20/20 21:08 21:09 21:14 Temperature Pulse Rate 93 H 85 94 H Respiratory Rate Blood Pressure 98/56 Blood Pressure [Right] O2 Sat by Pulse 100 99 Oximetry 08/20/20 08/20/20 08/20/20 21:19 21:24 21:29 Temperature Pulse Rate 94 H 90 91 H Respiratory Rate Blood Pressure Blood Pressure [Right] O2 Sat by Pulse 99 98 98 Oximetry 08/20/20 08/20/20 08/20/20 21:34 21:39 21:44 Temperature Pulse Rate 87 93 H 98 H Respiratory Rate Blood Pressure Blood Pressure [Right] O2 Sat by Pulse 98 98 99 Oximetry 08/20/20 08/20/20 08/20/20 21:49 21:54 21:59 Temperature Pulse Rate 93 H 87 91 H Respiratory Rate Blood Pressure Blood Pressure [Right] O2 Sat by Pulse 99 100 99 Oximetry 08/20/20 08/20/20 08/20/20 22:04 22:09 22:14 Temperature Pulse Rate 99 H 95 H 88 Respiratory Rate Blood Pressure Blood Pressure [Right] O2 Sat by Pulse 98 99 99 Oximetry 08/20/20 08/20/20 08/20/20 22:19 22:24 22:29 Temperature Pulse Rate 96 H 91 H 88 Respiratory Rate Blood Pressure Blood Pressure [Right] O2 Sat by Pulse 98 99 99 Oximetry 08/20/20 08/20/20 08/20/20 22:34 22:39 22:44 Temperature Pulse Rate 87 86 87 Respiratory Rate Blood Pressure Blood Pressure [Right] O2 Sat by Pulse 99 99 99 Oximetry 08/20/20 08/20/20 08/20/20 22:49 22:54 22:59 Temperature Pulse Rate 89 85 87 Respiratory Rate Blood Pressure Blood Pressure [Right] O2 Sat by Pulse 98 99 99 Oximetry 08/20/20 08/20/20 08/20/20 23:04 23:08 23:09 Temperature Pulse Rate 84 85 86 Respiratory Rate Blood Pressure 95/46 Blood Pressure [Right] O2 Sat by Pulse 98 98 Oximetry 08/20/20 08/20/20 08/20/20 23:14 23:19 23:24 Temperature Pulse Rate 85 84 94 H Respiratory Rate Blood Pressure Blood Pressure [Right] O2 Sat by Pulse 99 99 98 Oximetry 08/20/20 08/20/20 08/20/20 23:29 23:34 23:39 Temperature Pulse Rate 83 79 85 Respiratory Rate Blood Pressure Blood Pressure [Right] O2 Sat by Pulse 100 100 99 Oximetry 08/20/20 08/20/2020 23:44 23:49 23:54 Temperature Pulse Rate 85 88 85 Respiratory Rate Blood Pressure Blood Pressure [Right] O2 Sat by Pulse 98 99 98 Oximetry 08/20/20 08/21/20 08/21/20 23:59 00:00 00:04 Temperature 98 F Pulse Rate 95 H 85 92 H Respiratory 16 Rate Blood Pressure Blood Pressure 95/46 [Right] O2 Sat by Pulse 100 98 100 Oximetry 08/21/20 08/21/20 08/21/20 00:09 00:14 00:19 Temperature Pulse Rate 94 H 87 85 Respiratory Rate Blood Pressure Blood Pressure [Right] O2 Sat by Pulse 100 99 99 Oximetry 08/21/20 08/21/20 08/21/20 00:24 00:29 00:34 Temperature Pulse Rate 85 81 83 Respiratory Rate Blood Pressure Blood Pressure [Right] O2 Sat by Pulse 100 98 99 Oximetry 08/21/20 08/21/20 08/21/20 00:39 00:44 00:49 Temperature Pulse Rate 82 79 85 Respiratory Rate Blood Pressure Blood Pressure [Right] O2 Sat by Pulse 99 98 99 Oximetry 08/21/20 08/21/20 08/21/20 00:54 00:59 01:02 Temperature Pulse Rate 84 87 81 Respiratory Rate Blood Pressure 95/51 Blood Pressure [Right] O2 Sat by Pulse 98 96 Oximetry 08/21/20 08/21/20 08/21/20 01:04 01:09 01:14 Temperature Pulse Rate 85 84 83 Respiratory Rate Blood Pressure Blood Pressure [Right] O2 Sat by Pulse 98 98 98 Oximetry 08/21/20 08/21/20 08/21/20 01:19 01:24 01:29 Temperature Pulse Rate 82 86 84 Respiratory Rate Blood Pressure Blood Pressure [Right] O2 Sat by Pulse 97 98 99 Oximetry 08/21/20 08/21/20 08/21/20 01:34 01:39 01:44 Temperature Pulse Rate 78 81 84 Respiratory Rate Blood Pressure Blood Pressure [Right] O2 Sat by Pulse 100 100 99 Oximetry 08/21/20 08/21/20 08/21/20 01:49 01:54 01:59 Temperature Pulse Rate 84 81 84 Respiratory Rate Blood Pressure Blood Pressure [Right] O2 Sat by Pulse 99 99 98 Oximetry 08/21/20 08/21/20 08/21/20 02:00 02:04 02:09 Temperature Pulse Rate 81 81 80 Respiratory Rate Blood Pressure 96/54 Blood Pressure [Right] O2 Sat by Pulse 99 99 Oximetry 08/21/20 08/21/20 08/21/20 02:14 02:19 02:24 Temperature Pulse Rate 80 81 80 Respiratory Rate Blood Pressure Blood Pressure [Right] O2 Sat by Pulse 98 99 99 Oximetry 08/21/20 08/21/20 08/21/20 02:29 02:34 02:39 Temperature Pulse Rate 85 86 76 Respiratory Rate Blood Pressure Blood Pressure [Right] O2 Sat by Pulse 98 99 99 Oximetry 08/21/20 08/21/20 08/21/20 02:44 02:49 02:54 Temperature Pulse Rate 76 78 79 Respiratory Rate Blood Pressure Blood Pressure [Right] O2 Sat by Pulse 99 99 98 Oximetry 08/21/20 08/21/20 08/21/20 02:59 03:00 03:04 Temperature Pulse Rate 83 77 83 Respiratory Rate Blood Pressure 96/54 Blood Pressure [Right] O2 Sat by Pulse 98 97 Oximetry 08/21/20 08/21/20 08/21/20 03:09 03:14 03:19 Temperature Pulse Rate 82 84 79 Respiratory Rate Blood Pressure Blood Pressure [Right] O2 Sat by Pulse 97 97 99 Oximetry 08/21/20 08/21/20 08/21/20 03:24 03:29 03:34 Temperature Pulse Rate 78 93 H 82 Respiratory Rate Blood Pressure Blood Pressure [Right] O2 Sat by Pulse 98 98 98 Oximetry 08/21/20 08/21/20 08/21/20 03:39 03:44 03:49 Temperature Pulse Rate 98 H 77 79 Respiratory Rate Blood Pressure Blood Pressure [Right] O2 Sat by Pulse 98 98 99 Oximetry 08/21/20 08/21/20 08/21/20 03:54 03:59 04:00 Temperature Pulse Rate 78 80 74 Respiratory 16 Rate Blood Pressure 97/54 Blood Pressure 97/54 [Right] O2 Sat by Pulse 99 99 98 Oximetry 08/21/20 08/21/20 08/21/20 04:04 04:09 04:14 Temperature Pulse Rate 81 82 83 Respiratory Rate Blood Pressure Blood Pressure [Right] O2 Sat by Pulse 97 98 97 Oximetry 08/21/20 08/21/20 08/21/20 04:19 04:24 04:29 Temperature Pulse Rate 83 83 86 Respiratory Rate Blood Pressure Blood Pressure [Right] O2 Sat by Pulse 96 96 95 Oximetry 08/21/20 08/21/20 08/21/20 04:34 04:39 04:44 Temperature Pulse Rate 90 86 88 Respiratory Rate Blood Pressure Blood Pressure [Right] O2 Sat by Pulse 95 96 96 Oximetry 08/21/20 08/21/20 08/21/20 04:49 04:54 04:59 Temperature Pulse Rate 91 H 99 H 95 H Respiratory Rate Blood Pressure Blood Pressure [Right] O2 Sat by Pulse 95 97 96 Oximetry 08/21/20 08/21/20 08/21/20 05:00 05:04 05:09 Temperature Pulse Rate 92 H 89 90 Respiratory Rate Blood Pressure 106/53 Blood Pressure [Right] O2 Sat by Pulse 97 96 Oximetry 08/21/20 08/21/20 08/21/20 05:14 05:19 05:24 Temperature Pulse Rate 84 86 85 Respiratory Rate Blood Pressure Blood Pressure [Right] O2 Sat by Pulse 96 95 95 Oximetry 08/21/20 08/21/20 08/21/20 05:29 05:34 05:39 Temperature Pulse Rate 85 87 87 Respiratory Rate Blood Pressure Blood Pressure [Right] O2 Sat by Pulse 95 95 96 Oximetry 08/21/20 08/21/20 08/21/20 05:44 05:49 05:54 Temperature Pulse Rate 98 H 88 93 H Respiratory Rate Blood Pressure Blood Pressure [Right] O2 Sat by Pulse 99 96 96 Oximetry 08/21/20 08/21/20 08/21/20 05:59 06:00 06:04 Temperature Pulse Rate 89 88 86 Respiratory Rate Blood Pressure 98/52 Blood Pressure [Right] O2 Sat by Pulse 96 96 Oximetry 08/21/20 08/21/20 08/21/20 06:09 06:14 06:19 Temperature Pulse Rate 90 91 H 89 Respiratory Rate Blood Pressure Blood Pressure [Right] O2 Sat by Pulse 96 96 96 Oximetry 08/21/20 08/21/20 08/21/20 06:24 06:29 06:34 Temperature Pulse Rate 90 96 H 87 Respiratory Rate Blood Pressure Blood Pressure [Right] O2 Sat by Pulse 96 96 97 Oximetry 08/21/20 08/21/20 08/21/20 06:39 06:44 06:49 Temperature Pulse Rate 85 88 89 Respiratory Rate Blood Pressure Blood Pressure [Right] O2 Sat by Pulse 96 96 96 Oximetry 08/21/20 08/21/20 08/21/20 06:54 06:59 07:00 Temperature Pulse Rate 91 H 95 H 90 Respiratory Rate Blood Pressure 101/55 Blood Pressure [Right] O2 Sat by Pulse 96 95 Oximetry 08/21/20 08/21/20 08/21/20 07:04 07:09 07:14 Temperature Pulse Rate 85 89 89 Respiratory Rate Blood Pressure Blood Pressure [Right] O2 Sat by Pulse 96 96 97 Oximetry 08/21/20 08/21/20 07:19 07:24 Temperature Pulse Rate 86 86 Respiratory Rate Blood Pressure Blood Pressure [Right] O2 Sat by Pulse 97 98 Oximetry - Exam Breasts: deferred Cardiovascular: Regular rate Lungs: Clear to auscultation - Labs Labs: Abnormal Labs 08/20/20 08/20/20 08/20/20 07:21 10:41 15:27 WBC 11.5 H Hgb 9.4 L Hct 30.2 L MCV 73 L MCH 23 L RDW 15.6 H Magnesium 4.00 H 4.70 H 08/20/20 21:00 WBC Hgb Hct MCV MCH RDW Magnesium 4.40 H Laboratory Results - last 24 hr 08/20/20 08/20/20 08/20/20 07:21 10:41 10:41 WBC 11.5 H RBC 4.13 Hgb 9.4 L Hct 30.2 L MCV 73 L MCH 23 L MCHC 31 RDW 15.6 H Plt Count 278 Magnesium 4.00 H Blood Type O POSITIVE Antibody Screen Negative 08/20/20 08/20/20 15:27 21:00 WBC RBC Hgb Hct MCV MCH MCHC RDW Plt Count Magnesium 4.70 H 4.40 H Blood Type Antibody Screen
--- NOTE | 2020-08-21 07:32 | Discharge Summary ---
Providers - Providers Date of Admission: 08/19/20 17:42 Date of discharge: 08/21/20 Attending physician: DIANNE LEDESMA Primary care physician: DIANNE LEDESMA Hospitalization Reason for admission: labor Discharge diagnosis: other ( contractions) Hospital course: The patient was admitted with a complaint of contractions and pelvic pain. She had cervical dilatation to 1 cm. The patient was initiated on magnesium therapy and received steroids. She had significant improvement in her symptoms after her therapy. She remained clinically stable. Condition at discharge: Good Disposition: DC-01 TO HOME OR SELFCARE - Discharge Diagnoses (1) contractions Status: Acute Plan - Provider Discharge Summary Activity: no sex for 6 weeks, no heavy lifting 4 weeks, no strenuous exercise Diet: routine Instructions: routine Additional instructions: [] Smoking cessation referral if applicable(refer to patient education folder for contact #) [] Refer to [facility] Center Booklet Call your doctor immediately for: * Fever > 100.5 * Heavy vaginal bleeding ( >1 pad per hour) * Severe persistent headache * Shortness of breath * Reddened, hot, painful area to leg or breast * Schedule follow-up with Dr. Portillo in 1 week - Follow up plan
== END 2020-08-21 08:10 | disposition home or self-care (01) ==
LOC: TRG 11:42 → APU 11:46 → LD 17:42 → TRG 17:42
PROVIDERS: ADMIT Obstetrics & Gynecology; ATTEND Obstetrics & Gynecology
DX: O60.03 Preterm labor without delivery, third trimester (principal); O21.2 Late vomiting of pregnancy; O99.343 Other mental disorders complicating pregnancy, third trimester; F90.9 Attention-deficit hyperactivity disorder, unspecified type; O26.893 Other specified pregnancy related conditions, third trimester; K21.9 Gastro-esophageal reflux disease without esophagitis; E66.9 Obesity, unspecified; M79.7 Fibromyalgia; G43.909 Migraine, unspecified, not intractable, without status migrainosus; G47.00 Insomnia, unspecified; K58.9 Irritable bowel syndrome, unspecified; Z3A.30 30 weeks gestation of pregnancy; Z98.891 History of uterine scar from previous surgery; Z98.890 Other specified postprocedural states
CPT/HCPCS: 36415; 81001; 82731; 83735; 85027; 86850; 86900; 86901; 96361; 96365; 96366; 96372; 96375; 96376; C9113; G0378; J0702; J3010; J3105; J3410; J3475; J7120; Q0169; U0003

== ENCOUNTER 2020-09-10 10:00 | Emergency (ER) | payer BC ==
--- NOTE | 2020-09-10 11:42 | Emergency Department Report ---
- General Chief Complaint: Wound/Laceration Stated Complaint: LT RING FINGER INJURY Time Seen by Provider: 09/10/20 11:32 Source: patient Mode of arrival: Ambulatory Limitations: No Limitations - History of Present Illness Initial Comments: Patient is a 30-year-old female presents emergency room with complaints of a laceration to the left ring finger that occurred around 9 AM this morning. She states that she was cutting sweet potatoes with a kitchen knife and accidentally cut herself. She is still able to move the digit without difficulty. She denies any numbness or weakness. She states her last tetanus immunization was in 2017. She is currently [address] Portillo for her [employer], she denies any abdominal pain or vaginal bleeding. She has a past medical history of anxiety, depression, ADHD, fibromyalgia, migraines, IBS. She has multiple medication allergies. - Related Data Home Medications Medication Instructions Recorded Confirmed Last Taken Pantoprazole [Protonix TAB] 20 mg PO DAILY 05/10/19 08/20/20 05/10/19 05:00 busPIRone 15 mg PO DAILY 01/15/20 08/20/20 Unknown Topiramate (Nf) [Trokendi XR CAP] 100 mg PO DAILY 08/20/20 08/20/20 Unknown oxyCODONE /ACETAMINOPHEN [Percocet 1 tab PO Q6HR 08/20/20 08/20/20 Unknown 5/325 mg] Previous Rx's Medication Instructions Recorded Last Taken Type Albuterol Sulfate [Proventil Hfa] 6.7 gm IH Q4HR PRN #1 [email or web address] 04/07/20 Unknown Rx Allergies Allergy/AdvReac Type Severity Reaction Status Date / Time egg Allergy Severe Anaphylaxis Verified 05/22/20 16:09 NSAIDS (Non-Steroidal Allergy Severe Unknown Verified 05/22/20 16:09 Anti-Inflamma Sulfa (Sulfonamide Allergy Severe Anaphylaxis Verified 05/22/20 16:09 Antibiotics) ibuprofen Allergy Intermediate Bleeding Verified 05/22/20 16:09 latex Allergy Hives Verified 05/22/20 16:09 plecanatide [From Trulance] Allergy Anaphylaxis Verified 05/22/20 16:09 adhesive tape AdvReac Intermediate Unknown Verified 05/22/20 16:09 metoclopramide [From Reglan] AdvReac Unknown Verified 05/22/20 16:09 ED Review of Systems ROS: Stated complaint: LT RING FINGER INJURY Other details as noted in HPI Comment: All other systems reviewed and negative ED Past Medical Hx - Past Medical History Previous Medical History?: Yes Hx Hypertension: No Hx Heart Attack/AMI: No Hx Congestive Heart Failure: No Hx Diabetes: No Hx Deep Vein Thrombosis: No Hx GERD: Yes Hx Liver Disease: No Hx Renal Disease: No Hx Sickle Cell Disease: No Hx Headaches / Migraines: Yes (MIGRAINES) Hx Seizures: No Hx Psychiatric Treatment: Yes (ADHD, anxiety) Hx Asthma: No Hx COPD: No Hx HIV: No Additional medical history: MIGRAINES, PCOS, fibromylagia, IBS - Surgical History Past Surgical History?: Yes Hx Cholecystectomy: Yes Additional Surgical History: C SECTION X3. nerve block on left shoulder - Social History Smoking Status: Never Smoker Substance Use Type: None - Medications Home Medications: Home Medications Medication Instructions Recorded Confirmed Last Taken Type Pantoprazole [Protonix TAB] 20 mg PO DAILY 05/10/19 08/20/20 05/10/19 05:00 History busPIRone 15 mg PO DAILY 01/15/20 08/20/20 Unknown History Albuterol Sulfate [Proventil Hfa] 6.7 gm IH Q4HR PRN #1 [email or web address] 04/07/20 08/20/20 Unknown Rx Topiramate (Nf) [Trokendi XR CAP] 100 mg PO DAILY 08/20/20 08/20/20 Unknown H istory oxyCODONE /ACETAMINOPHEN [Percocet 1 tab PO Q6HR 08/20/20 08/20/20 Unknown History 5/325 mg] ED Physical Exam - General Limitations: No Limitations General appearance: alert, in no apparent distress - Head Head exam: Present: atraumatic, normocephalic - Eye Eye exam: Present: normal appearance - ENT ENT exam: Present: mucous membranes moist - Respiratory Respiratory exam: Absent: respiratory distress, accessory muscle use - Extremities Exam Extremities exam: Present: other (0.5 cm very superificial flap like laceration present to the palmar surface of the left ring finger, only involves the skin layers, no subcutaneous fat involvement, no muscle/tendon involvement, no foreign body, very superificial, no bleeding, FROM, neurovascularly intact) - Neurological Exam Neurological exam: Present: alert, oriented X3 - Psychiatric Psychiatric exam: Present: normal affect, normal mood - Skin Skin exam: Present: warm, dry ED Course Vital Signs 09/10/20 09/10/20 10:03 12:33 Temperature 98.3 F 97 F L Pulse Rate 88 90 Respiratory 20 14 Rate Blood Pressure 140/82 Blood Pressure 130/80 [Right] O2 Sat by Pulse 96 98 Oximetry - Laceration /Wound Repair Left Finger Wound Location: upper extremity (palmar surface of the distal end of the left ring finger) Wound Length (cm): 1 (0.5 cm total) Wound's Depth, Shape: superficial, flap Wound Explored: clean Irrigated w/ Saline (ccs): 50 Betadine Prep?: Yes Volume Anesthetic (ccs): 0 Wound Repaired With: Steri-strips, Dermabond Progress: Wound irrigated with saline and thoroughly scrubbed with Betadine, very superficial, small amount of Dermabond placed, Steri-Strips applied, no bleeding, skin is well approximated, patient tolerated well, Band-Aid placed ED Medical Decision Making - Lab Data Vital Signs 09/10/20 09/10/20 10:03 12:33 Temperature 98.3 F 97 F L Pulse Rate 88 90 Respiratory 20 14 Rate Blood Pressure 140/82 Blood Pressure 130/80 [Right] O2 Sat by Pulse 96 98 Oximetry - Medical Decision Making Patient is a 30-year-old female presents emergency room with complaints of a laceration to the left ring finger that occurred around 9 AM this morning. She states that she was cutting sweet potatoes with a kitchen knife and accidentally cut herself. She is still able to move the digit without difficulty. She denies any numbness or weakness. She states her last tetanus immunization was in 2017. She is currently [address] Portillo for her [employer], she denies any abdominal pain or vaginal bleeding. She has a past medical history of anxiety, depression, ADHD, fibromyalgia, migraines, IBS. She has multiple medication allergies. VSS. on exam: 0.5 cm very superificial flap like laceration present to the palmar surface of the left ring finger, only involves the skin layers, no subcutaneous fat involvement, no muscle/tendon involvement, no foreign body, very superificial, no bleeding, FROM, neurovascularly intact. Wound irrigated with saline and scrubbed with Betadine and repaired with Dermabond and Steri-Strips, very superficial, does not need suture repair. advised pt Please keep area clean, dry, covered. Please do not get area wet for the next 2 days. After 2 days may wash with soap and water and pat dry. No hot tub, no pool. Follow-up with a primary care doctor. May take Tylenol as needed for discomfort. Return to emergency room for any new or worsening symptoms. Critical care attestation.: If time is entered above; I have spent that time in minutes in the direct care of this critically ill patient, excluding procedure time. ED Disposition Clinical Impression: Finger laceration Qualifiers: Encounter type: initial encounter Finger: ring finger Damage to nail status: without damage Foreign body presence: without foreign body Laterality: left Qualified Code(s): S61.215A - Laceration without foreign body of left ring finger without damage to nail, initial encounter Disposition: - TO HOME OR SELFCARE Is pt being admited?: No Does the pt Need Aspirin: No Condition: Stable Instructions: Tissue Adhesive Wound Care, [id number] Additional Instructions: Please keep area clean, dry, covered. Please do not get area wet for the next 2 days. After 2 days may wash with soap and water and pat dry. No hot tub, no pool. Follow-up with a primary care doctor. May take Tylenol as needed for discomfort. Return to emergency room for any new or worsening symptoms. Referrals: your, primary care doctor [Other] - 2-3 Days Time of Disposition: 11:58 Print Language: CZECH
[2020-09-10 12:34] VITALS: BP 130/80
== END 2020-09-10 12:23 | disposition home or self-care (01) ==
LOC: ED 10:00
DX: S61.215A Laceration without foreign body of left ring finger without damage to nail, initial encounter (principal); K21.9 Gastro-esophageal reflux disease without esophagitis; G43.909 Migraine, unspecified, not intractable, without status migrainosus; F41.9 Anxiety disorder, unspecified; Z90.49 Acquired absence of other specified parts of digestive tract; Z79.899 Other long term (current) drug therapy; Z88.5 Allergy status to narcotic agent; Z88.8 Allergy status to other drugs, medicaments and biological substances; W26.0XXA Contact with knife, initial encounter; Y93.89 Activity, other specified; Y92.89 Other specified places as the place of occurrence of the external cause; Y99.8 Other external cause status
CPT/HCPCS: 99282

== ENCOUNTER 2020-10-02 11:33 | Inpatient (IN) | payer BC ==
[2020-10-02] MEDS ORDERED: SODIUM BICARB 8.4% 50 MEQ/50 ML SYRINGE IV ONE ×3 (11:46→16:34)
[2020-10-02] MEDS ORDERED: DEXTROSE 50% IN WATER (25GM) 50 ML SYRINGE IV ONE (11:46)
[2020-10-02] MEDS ORDERED: CALCIUM CHLORIDE 1,000 MG/10 ML SYRINGE IV ONE (11:46)
[2020-10-02] MEDS ORDERED: EPINEPHrine 1 MG/10 ML SYRINGE ONE (11:46)
[2020-10-02] MEDS ORDERED: WATER FOR IRRIG STERILE 1,500 ML BOTTLE IR ONE (11:47)
[2020-10-02] MEDS ORDERED: SODIUM CHLORIDE 0.9% IRR 1,500 ML BOTTLE IR ONE (11:47)
[2020-10-02] MEDS ORDERED: LACTATED RINGERS 1,000 ML ONE ×2 (12:45→14:36)
[2020-10-02] MEDS ORDERED: METHYLERGONOVINE MALEATE 0.2 MG/ML VIAL IM ONE (12:46)
[2020-10-02] MEDS ORDERED: OXYTOCIN DRIP 30,000 MILLIUNITS/500 ML BAG IV ONE (12:46)
[2020-10-02] MEDS ORDERED: miSOPROStol 100 MCG TAB ONE (12:46)
[2020-10-02 12:57] LABS: Mean Corpuscular HGB Conc 28 % (30-34); Mean Corpuscular Volume 79 fl (79-97); Red Cell Distribution Width 17.6 % (13.2-15.2)
[2020-10-02 12:58] LABS: Hematocrit 32.4 % (30.3-42.9); Hemoglobin 9.1 gm/dl (10.1-14.3)
[2020-10-02] MEDS ORDERED: LIDOCAINE MPF (2%) 20 MG/1 ML VIAL 5 ML ONE (13:04)
[2020-10-02] MEDS ORDERED: SUCCINYLCHOLINE CHLORIDE 200 MG/10 ML INJ MDV ONE (13:04)
[2020-10-02] MEDS ORDERED: propofoL 200 MG/20 ML VIAL IV ONE (13:04)
[2020-10-02] MEDS ORDERED: OXYTOCIN 10 UNIT/1 ML INJ ONE (13:04)
[2020-10-02] MEDS ORDERED: ROCURONIUM 50 MG/5 ML INJ IV ONE (13:04)
[2020-10-02 13:05] LABS: Alanine Aminotransferase 85 units/L (7-56); Albumin 2.3 g/dL (3.9-5); BUN/Creatinine Ratio 7; Blood Urea Nitrogen 6 mg/dL (7-17); Calcium 9.3 mg/dL (8.4-10.2); Hemolysis Index 190; Uric Acid 7.1 mg/dL (3.5-7.6)
[2020-10-02] MEDS ORDERED: MIDAZOLAM 2 MG/2 ML INJ ONE (13:16)
[2020-10-02] MEDS ORDERED: ceFAZolin 1 GM VIAL ONE (13:33)
[2020-10-02 13:34] LABS: Anisocytosis 1+; Band Neutrophils # (Manual) 0.9 K/mm3; Hypochromasia Few; Myelocytes # (Manual) 0.4 K/mm3; Platelet Estimate Consistent w Auto; Total Cells Counted 100
[2020-10-02 13:35] LABS: Hemoglobin 8.9 gm/dl (10.1-14.3); Mean Corpuscular HGB Conc 31 % (30-34); Mean Corpuscular Volume 73 fl (79-97); Red Blood Count 3.98 M/mm3 (3.65-5.03); Red Cell Distribution Width 17.2 % (13.2-15.2)
[2020-10-02 13:35] LABS: Platelet Count 102 K/mm3 (140-440)
[2020-10-02] MEDS ORDERED: CITRIC ACID-SOD CITRATE 500 ML IV ONE (13:40)
[2020-10-02] MEDS ORDERED: SODIUM CHLORIDE 0.9% 1000 ML 1,000 ML ONE (13:50)
[2020-10-02 13:53] LABS: Alanine Aminotransferase 113 units/L (7-56); Uric Acid 7.5 mg/dL (3.5-7.6)
[2020-10-02] MEDS ORDERED: SODIUM CHLORIDE 0.9% 100 ML ONE ×2 (14:34)
[2020-10-02 15:08] LABS: INR 6.92 (0.87-1.13); Partial Thromboplastin Time 158.7 Sec. (24.2-36.6)
[2020-10-02 15:14] LABS: Fibrinogen < 60 mg/dl (211-480)
[2020-10-02 15:22] LABS: Anisocytosis 1+; Band Neutrophils # (Manual) 4.2 K/mm3; Hypochromasia 1+; Myelocytes # (Manual) 0.8 K/mm3; Platelet Estimate Consistent w Auto; Total Cells Counted 100
[2020-10-02 15:23] LABS: Platelet Count 232 K/mm3 (140-440)
[2020-10-02] MEDS ORDERED: SODIUM CHLORIDE 0.9% 500 ML 500 ML IV SCH ×4 (15:30→19:02)
--- NOTE | 2020-10-02 15:32 | XRay Report ---
PELVIS 1 VIEW(S) INDICATION / CLINICAL INFORMATION: STAT EMERGENCY COMPARISON: None available. FINDINGS: BONES / JOINT(S): No acute fracture or subluxation. No significant arthritis. SOFT TISSUES: Surgical clips overlie the lower pelvis. Surgical drain is present over the upper mid p rajeev. Wire coil projects over the left upper pelvis. No evidence of retained sponge or needle. ADDITIONAL FINDINGS: None. Signer Name: Harlan Lee MD Signed: 10/02/2020 3:28 PM Workstation Name: [facility] [id number]
[2020-10-02] MEDS ORDERED: METOCLOPRAMIDE 10 MG/2 ML INJ IV SCH (16:09)
[2020-10-02] MEDS ORDERED: FAMOTIDINE 20 MG/2 ML INJ IV SCH (16:09)
[2020-10-02] MEDS ORDERED: BICITRA ORAL LIQD 30ML PO SCH (16:09)
[2020-10-02] MEDS: NORepinephrine/NS 4 MG-250 ML 4 MG/250 ML BAG IV SCH ×4 (16:15→22:40)
--- NOTE | 2020-10-02 16:17 | History and Physical Report ---
History of Present Illness Date of examination: 10/02/20 Date of admission: 10/02/20 12:00 Chief complaint: called by provider in triage secondary to patient seizing History of present illness: Late entry. Pt is a 30 year old -[place] female CHE 10/25/20 at 36w5d who presents with seizures in triage. Pt is not able to provide history but per pt's , she presented to the hospital to return a 24 hour urine specimen for analysis. She then suddenly reported that she did not feel good. She was taken to labor and delivery and shortly after arrival, she began seizing. During this time, a code met was called because the patient became hypoxic. She was then noted to be without a pulse. Chest compressions were started immediately, and the patient was emergently taken to the operating room for delivery of the fetus. This patient has had care at [facility] with comanagement by [facility] since 11 wks complicated by ADHD, morbid obesity, generalized anxiety disorder, panic attacks, chronic narcotic use, fibromyalgia, GERD, Irritable Bowel Syndrome, Migraines, h/o endometrial ablation and ovarian vein embolization, genital herpes, insomnia, LGA fetus, nausea and vomiting, polyhydramnios, quad screen positive for Down's Syndrome, and previous x 3. She is GBS negative. Past History Past Medical History: migraines, GERD, fibromyalgia, other (ADHD, Anxiety ) Past Surgical History: CHIEF STEWARD/STEWARDESS/uterine surgery (endometrial ablation, ovarian vein embolization ), section (x 3 ) CHIEF STEWARD/STEWARDESS History: herpes Family/Genetic History: cancer Social history: - Obstetrical History Expected Date of Delivery: 10/25/20 Actual Gestation: 36 Week(s) 5 Day(s) : 7 Para: 3 Hx # Term Pregnancies: 3 Number of Pregnancies: 0 Spontaneous Abortions: 3 Induced : 0 Number of Living Children: 3 Medications and Allergies Allergies Allergy/AdvReac Type Severity Reaction Status Date / Time egg Allergy Severe Anaphylaxis Verified 05/22/20 16:09 NSAIDS (Non-Steroidal Allergy Severe Unknown Verified 05/22/20 16:09 Anti-Inflamma Sulfa (Sulfonamide Allergy Severe Anaphylaxis Verified 05/22/20 16:09 Antibiotics) ibuprofen Allergy Intermediate Bleeding Verified 05/22/20 16:09 latex Allergy Hives Verified 05/22/20 16:09 plecanatide [From Trulance] Allergy Anaphylaxis Verified 05/22/20 16:09 adhesive tape AdvReac Intermediate Unknown Verified 05/22/20 16:09 metoclopramide [From Reglan] AdvReac Unknown Verified 05/22/20 16:09 Home Medications Medication Instructions Recorded Confirmed Last Taken Type Pantoprazole [Protonix TAB] 20 mg PO DAILY 05/10/19 08/20/20 05/10/19 05:00 History busPIRone 15 mg PO DAILY 01/15/20 08/20/20 Unknown History Albuterol Sulfate [Proventil Hfa] 6.7 gm IH Q4HR PRN #1 hfa.aer.ad 04/07/20 08/20/20 Unknown Rx Topiramate (Nf) [Trokendi XR CAP] 100 mg PO DAILY 08/20/20 08/20/20 Unknown History oxyCODONE /ACETAMINOPHEN [Percocet 1 tab PO Q6HR 08/20/20 08/20/20 Unknown History 5/325 mg] Active Meds: Active Medications Citric Acid/Sodium Citrate (Bicitra Oral Liqd 30ml) 30 ml PO ONCE ERINN Stop: 10/03/20 16:08 Famotidine (Famotidine 20 Mg/2 Ml Inj) 20 mg IV ONCE ERINN Stop: 10/03/20 16:08 Sodium Chloride (Nacl 0.9% 500 Ml) 500 mls @ 0 mls/hr IV ONCE ERINN Stop: 10/02/20 21:00 Norepinephrine (Levophed Drip 4 Mg/Ns 250 Ml) 4 mg in 250 mls @ 7.5 mls/hr IV TITR ERINN; Protocol Lactated Ringer's (Lactated Ringers) 1,000 mls @ 2,250 mls/hr IV PREOP ERINN Stop: 10/03/20 16:42 Oxytocin/Sodium Chloride (Pitocin/Ns 30 Unit/500ml) 30 units in 500 mls @ 0 mls/hr IV TITR ERINN; Protocol Cefazolin Sodium (Ancef/Sterile Water 2 Gm/20 Ml) 2 gm in 20 mls @ 80 mls/hr IV PREOP NR; Protocol Stop: 10/03/20 16:59 Metoclopramide HCl (Metoclopramide 10 Mg/2 Ml Inj) 10 mg IV ONCE ONE Stop: 10/02/20 16:10 Review of Systems All systems: negative - Vital Signs Vital signs: Vital Signs Pulse Pulse Ox 75 98 10/02/20 11:36 10/02/20 11:36 Temp Pulse Resp BP Pulse Ox 51 L 63 L 10/02/20 11:41 10/02/20 11:41 - Physical Exam Abdomen: Positive: soft (gravid, obese ) Uterus: Positive: enlarged (gravid ) - Obstetrical FHR: other (FHTs 70s ) Results Result Diagrams: 10/02/20 18:18 10/02/20 16:35 Abnormal lab results 10/02/20 10/02/20 10/02/20 Range/Units 12:03 12:18 12:18 WBC 14.9 H (4.5-11.0) K/mm3 Hgb 9.1 L (10.1-14.3) gm/dl Hct (30.3-42.9) % MCV (79-97) fl MCH 22 L (28-32) pg MCHC 28 L (30-34) % RDW 17.6 H (13.2-15.2) % Plt Count 102 L (140-440) K/mm3 Seg Neuts % (Manual) 36.0 L (40.0-70.0) % Lymphocytes % (Manual) 49.0 H (13.4-35.0) % Nucleated RBC % 6.0 H (0.0-0.9) % Seg Neutrophils # Man (1.8-7.7) K/mm3 Lymphocytes # (Manual) 7.3 H (1.2-5.4) K/mm3 Monocytes # (Manual) (0.0-0.8) K/mm3 PT (12.2-14.9) Sec. INR (0.87-1.13) APTT (24.2-36.6) Sec. Fibrinogen (211-480) mg/dl D-Dimer (0-234) ng/mlDDU VBG pH (7.320-7.420) Sodium 134 L (137-145) mmol/L Carbon Dioxide 12 L (22-30) mmol/L BUN 6 L (7-17) mg/dL Glucose 390 H (65-100) mg/dL POC Glucose 451 H (70-105) mg/dL AST 135 H (5-40) units/L ALT 85 H (7-56) units/L Alkaline Phosphatase 172 H (35-129) units/L Lactate Dehydrogenase 641 H (91-180) units/L Total Protein 5.4 L (6.3-8.2) g/dL Albumin 2.3 L (3.9-5) g/dL Crossmatch 10/02/20 10/02/20 10/02/20 Range/Units 12:50 13:05 13:05 WBC 38.6 H (4.5-11.0) K/mm3 Hgb 8.9 L (10.1-14.3) gm/dl Hct 29.0 L (30.3-42.9) % MCV 73 L (79-97) fl MCH 22 L (28-32) pg MCHC (30-34) % RDW 17.2 H (13.2-15.2) % Plt Count (140-440) K/mm3 Seg Neuts % (Manual) (40.0-70.0) % Lymphocytes % (Manual) (13.4-35.0) % Nucleated RBC % 2.0 H (0.0-0.9) % Seg Neutrophils # Man 20.1 H (1.8-7.7) K/mm3 Lymphocytes # (Manual) 10.4 H (1.2-5.4) K/mm3 Monocytes # (Manual) 2.3 H (0.0-0.8) K/mm3 PT (12.2-14.9) Sec. INR (0.87-1.13) APTT (24.2-36.6) Sec. Fibrinogen (211-480) mg/dl D-Dimer (0-234) ng/mlDDU VBG pH (7.320-7.420) Sodium (137-145) mmol/L Carbon Dioxide (22-30) mmol/L BUN (7-17) mg/dL Glucose (65-100) mg/dL POC Glucose (70-105) mg/dL AST 184 H (5-40) units/L ALT 113 H (7-56) units/L Alkaline Phosphatase (35-129) units/L Lactate Dehydrogenase 769 H (91-180) units/L Total Protein (6.3-8.2) g/dL Albumin (3.9-5) g/dL Crossmatch See Detail 10/02/20 10/02/20 Range/Units Unknown Unknown WBC (4.5-11.0) K/mm3 Hgb (10.1-14.3) gm/dl Hct (30.3-42.9) % MCV (79-97) fl MCH (28-32) pg MCHC (30-34) % RDW (13.2-15.2) % Plt Count (140-440) K/mm3 Seg Neuts % (Manual) (40.0-70.0) % Lymphocytes % (Manual) (13.4-35.0) % Nucleated RBC % (0.0-0.9) % Seg Neutrophils # Man (1.8-7.7) K/mm3 Lymphocytes # (Manual) (1.2-5.4) K/mm3 Monocytes # (Manual) (0.0-0.8) K/mm3 PT 61.1 H (12.2-14.9) Sec. INR 6.92 H* (0.87-1.13) APTT 158.7 H* (24.2-36.6) Sec. Fibrinogen < 60 L* (211-480) mg/dl D-Dimer > 51043 H (0-234) ng/mlDDU VBG pH 6.949 L* (7.320-7.420) Sodium (137-145) mmol/L Carbon Dioxide (22-30) mmol/L BUN (7-17) mg/dL Glucose (65-100) mg/dL POC Glucose (70-105) mg/dL AST (5-40) units/L ALT (7-56) units/L Alkaline Phosphatase (35-129) units/L Lactate Dehydrogenase (91-180) units/L Total Protein (6.3-8.2) g/dL Albumin (3.9-5) g/dL Crossmatch All other labs normal. Assessment and Plan A: IUP at 36w5d Pt without pulse Previous x 3 ADHD Morbid obesity, Generalized anxiety disorder/panic attacks Chronic narcotic use Fibromyalgia GERD Irritable Bowel Syndrome Migraines H/o endometrial ablation and ovarian vein embolization Genital herpes, insomnia LGA fetus, nausea and vomiting Polyhydramnios Quad screen positive for Down's Syndrome, NIPT low risk GBS negative P: Proceed with emergent section and other indicated procedures
[2020-10-02] MEDS: PHENYLEPHRINE 100 MG in SODIUM CHLORIDE 0.9% 90 ML IV SCH (16:20)
[2020-10-02 16:30] LABS: ABG Base Excess -16.9 mmol/L (-2.0-3.0); ABG HCO3 12.7 mmol/L (20.0-26.0); ABG Methemoglobin 0.5 % (0.0-1.5); ABG Oxygen Saturation 96.8 % (95.0-99.0); ABG PCO2 49.2 mm Hg; ABG PO2 116.8 mm Hg (80.0-90.0)
[2020-10-02] MEDS ORDERED: SODIUM CHLORIDE 0.9% 1000 ML 1,000 ML IV ONE (16:30)
[2020-10-02 16:36] LABS: ABG PH 7.031 pH Units (7.350-7.450)
--- NOTE | 2020-10-02 16:38 | Operative Report ---
Operative Report Operative Report: Date of procedure: October 02, 2020 Preoperative Diagnosis: 1) s/p repeat section 2) DIC 3) Uterine Atony 4) Hemorrhage 5) Eclampsia 6) Morbid Obesity Postoperative diagnosis: Same Procedure: Supracervical abdominal hysterectomy Surgeon: Yesy Portillo M.D. Anesthesiologist Attending: Goldie Arthur M.D. Anesthesia: General endotracheal anesthesia Findings: 1) 20 wk sized uterus 3) Normal appearing ovaries and fallopian tubes Estimated blood loss: 4000 mL Cell saver: 1125 mL collected and administered Urine: clear at the end of procedure Drains: Hamlin to gravity, Art drain to bulb suction Specimens: Uterus to pathology Complications: None. Counts correct 3 Disposition: Critical to CCU Indication for procedure: Patient is a 30 year old -[place] s/p repeat section complicated by uterine atony, hemorrhage, and DIC despite administration of multiple medications. The decision was made to proceed with hysterectomy. Operation in detail: The patient was placed in the dorsal supine position. The patient was prepped and draped in a normal sterile fashion. A time out was performed. The tuan from the previously created Pfannenstiel incision were removed. Fascial incision was reopened by cutting the sutures with scissors. At this time, the uterus was delivered through the incision. The Ligasure device was used to sequentially clamp and to ligate the anterior leaf of the broad ligament was dissected to the midline of the vesicouterine peritoneum. The bladder was dissected off the lower uterine segment and cervix with the Metzenbaum scissors. A window was created in an avascular area of the posterior leaf. The ovarian ligament and fallopian tube were transected. Attention was then turned to the right side where the round ligament was identified and ligated with the Ligasure. Again the anterior leaf of the broad ligament was dissected to the midline of the vesicouterine peritoneum. The decision was then made to perform a supracervical hysterectomy. The uterus was excised with the Bovie and sent to pathology. The pelvis was then irrigated and cleared of all clots and debris. Hemoblast was placed over the vaginal cuff and pedicles. Additional stitches of 3-0 Vicryl were used in a running locked fashion to obtain hemostasis of the remaining mesosalpinx. All laps and instruments were removed from the abdomen. Hemostasis was noted. A Art drain was placed in the LLQ to bulb suction. The fascia was then reapproximated with 0 Vicryl in a running fashion. The skin was reapproximated with tuan. The incision was then covered with a pressure dressing. The procedure was then ended. All instrument, lap, and needle counts were correct 3. An x-ray was performed at the end of the case. The patient remains intubated and is taken to the CCU for continuation of her care.
--- NOTE | 2020-10-02 16:38 | Operative Report ---
Operative Report Operative Report: Date of procedure: October 02, 2020 Preoperative diagnosis: 1) IUP at 36w5d 2) Eclampsia 3) Nonreassuring maternal and status 4) Previous x 3 5) Morbid Obesity Postoperative diagnosis: Same 6) Uterine Atony 7) Hemorrhage Procedure: Repeat low transverse section Surgeon: Yesy Portillo M.D. Anesthesia: GETA Findings: 1) Viable male , Apgars 1 and 7, weight 3565 g, (7 lb 14 oz) in cephalic presentation 2) Normal-appearing uterus ovaries and tubes Estimated blood loss: 1500 mL Urine output: blood tinged at the end of the procedure Drains: Hamlin to gravity Specimens: Placenta to pathology Complications:None. Counts correct x 3 Disposition: Stable to PACU Indication for procedure: Pt is a 30 year old at 36w5d with three prior sections who presents with eclampsia, hypoxia and no pulse and heart tones in the 70s. The decision is made to proceed with emergent section. Operation in detail: After the risks, benefits, alternatives and complications were explained to the patient she gave informed consent for the procedure. She was subsequently taken to the operating room where regional anesthesia was noted to be adequate. She was subsequently placed in the dorsal supine position with leftward tilt and prepped and draped in a normal sterile fashion. A timeout was performed. A Pfannenstiel skin incision was made with the knife and carried down to the layer of the fascia with the knife. The fascia was incised in the midline and the fascial incision was extended bilaterally with the knife. The rectus muscles were then transected sharply with the knife. The peritoneum was then entered sharply with the knife. The peritoneal incision was stretched. A transverse incision was made in the lower uterine segment with a knife and stretched. head delivered with ease, followed by shoulders and body. bulb suctioned at delivery. Cord clamped and cut. handed to NICU staff in attendance. The placenta was then delivered manually. The uterus was then exteriorized and cleared of all clots and debris. The hysterotomy was then reapproximated with 0 Vicryl in a running locked fashion. A second layer of the same suture was used in imbricating fashion. The hysterotomy was inspected and hemostasis was noted. The gutters were irrigated and cleared of all clots and debris. The hysterotomy was again inspected and noted to be hemostatic. Surgicel was placed over the hysterotomy. The uterus was placed back into the peritoneal cavity. The fascia was reapproximated with 0 Vicryl in a running fashion. The skin was reapproximated with tuan. The incision was then covered with steri strips and a pressure dressing. The procedure was then ended. At this time, as the patient was about to be transferred to another bed, copious vaginal bleeding was noted. She was given additional pitocin, hemabate, and misoprostol per rectum with little improvement in her bleeding and development of hemorrhage. The decision was made to proceed with hysterectomy. Her mother and were notified of the care plan and are in agreement.
--- NOTE | 2020-10-02 16:38 | Procedure Note ---
OB Delivery Note - Delivery Date of Delivery: 10/02/20 Surgeon: KRISTEN ESCOBEDO Estimated blood loss: other (1500) - Section Preop diagnosis: nonreassuring FHR tracing, other (Eclampsia, No pulse, Previous x 3 ) Postop diagnosis: same section procedure: section, repeat low transverse Disposition: no change Complications: intra-op hemorrhage, uterine atony Narrative: Please read operative report. - Infant A at 1 minute: 1 at 5 minutes: 7 Infant Gender: Male (3565g (7lb 14oz) @ 1150 am)
[2020-10-02] MEDS: VASOPRESSIN 20 UNIT in SODIUM CHLORIDE 0.9% 100 ML IV SCH (16:40)
[2020-10-02] MEDS: LACTATED RINGERS 1,000 ML IV SCH ×3 (16:45→21:54)
[2020-10-02] MEDS ORDERED: ceFAZolin/Water 2 GM/20 ML 2 GM/20 ML SYRINGE IV NR (17:00)
[2020-10-02] MEDS ORDERED: OXYTOCIN DRIP 30 UNITS/500 ML BAG IV SCH (17:00)
[2020-10-02] MEDS: SODIUM BICARBONATE 75 MEQ in DEXTROSE 5% IN WATER 1,000 ML IV SCH ×2 (17:15→21:11)
[2020-10-02 18:29] LABS: Mean Corpuscular HGB Conc 32 % (30-34); Mean Corpuscular Volume 84 fl (79-97); Red Blood Count 2.06 M/mm3 (3.65-5.03); Red Cell Distribution Width 19.5 % (13.2-15.2)
[2020-10-02 18:39] LABS: Hematocrit 17.3 % (30.3-42.9); Hemoglobin 5.5 gm/dl (10.1-14.3)
[2020-10-02 18:41] LABS: INR 3.71 (0.87-1.13)
[2020-10-02 18:43] LABS: Alanine Aminotransferase 33 units/L (7-56); Albumin 1.2 g/dL (3.9-5); BUN/Creatinine Ratio 9; Blood Urea Nitrogen 7 mg/dL (7-17); Calcium 6.3 mg/dL (8.4-10.2); Hemolysis Index 20
--- NOTE | 2020-10-02 18:49 | Event Note ---
Date: 10/02/20 Called to the bedside secondary to increased Art output of 500 mL over about thirty minutes. At bedside. Art drain full. Bleeding through the dressing as well. Pt is in Disseminated Intravascular Coagulopathy. Call made to blood bank to initiate massive transfusion protocol. Continue transfusion of blood products. Attempt Hematology referral as well.
[2020-10-02 19:03] LABS: Partial Thromboplastin Time 135.8 Sec. (24.2-36.6)
[2020-10-02] MEDS: EPINEPHrine 1 MG/1 ML 8 MG in SODIUM CHLORIDE 0.9% 250ML 242 ML IV SCH (19:20)
[2020-10-02] MEDS ORDERED: SODIUM CHLORIDE 0.9% 500 ML 500 ML IV ONE (22:23)
[2020-10-02 22:41] LABS: ABG Base Excess -15.1 mmol/L (-2.0-3.0); ABG HCO3 14.1 mmol/L (20.0-26.0); ABG Methemoglobin 0.5 % (0.0-1.5); ABG Oxygen Saturation 98.8 % (95.0-99.0)
[2020-10-02 22:50] LABS: ABG PH 7.067 pH Units (7.350-7.450)
[2020-10-03 00:03] LABS: Band Neutrophils # (Manual) 3.7 K/mm3; Total Cells Counted 100
[2020-10-03 00:04] LABS: Burr Cells Rare; Ovalocytes Rare; Tear Drop Cells Rare
[2020-10-03 00:05] LABS: Platelet Estimate Consistent w Auto
[2020-10-03 00:06] LABS: Platelet Count 60 K/mm3 (140-440)
[2020-10-03] MEDS: PHENYLEPHRINE 100 MG in SODIUM CHLORIDE 0.9% 90 ML IV SCH ×3 (00:30→08:35)
--- NOTE | 2020-10-03 00:57 | Consultation ---
History of Present Illness - Reason for Consult Consult date: 10/02/20 Medical management Requesting physician: KRISTEN ESCOBEDO - History of Present Illness Pt is a 30 year old -[place] female CHE 10/25/20 at 36w5d who presents with seizures in triage. Pt is not able to provide history but per pt's , she presented to the hospital to return a 24 hour urine specimen for analysis. She then suddenly reported that she did not feel good. She was taken to labor and delivery and shortly after arrival, she began seizing. During this time, a code met was called because the patient became hypoxic. She was then noted to be without a pulse. Chest compressions were started immediately, and the patient was emergently taken to the operating room for delivery of the fetus. This patient has had care at [facility] with comanagement by [facility] since 11 wks complicated by ADHD, morbid obesity, generalized anxiety disorder, panic attacks, chronic narcotic use, fibromyalgia, GERD, Irritable Bowel Syndrome, Migraines, h/o endometrial ablation and ovarian vein embolization, genital herpes, insomnia, LGA fetus, nausea and vomiting, polyhydramnios, quad screen positive for Down's Syndrome, and previous x 3. She is GBS negative. 11:30: Pt brought to L&D triage for evaluation of possible labor. Pt accompanied by her spouse. Pt spouse poor historian; unable to obtain history, allergies at this time. Pt taken from registration to triage area via WC. Pt unresponsive, actively seizing with snorous respirations. marketing content coordinator, Kassy, called and requesting assistance. 11:35: Multiple staff at bedside. Pt 02 sat 67% on nonrebreather, unable to read BP at this time. Yifan Theodore CRNA, at bedside for intubation and assistance with IV insertion. INT attempt by multiple RNs unsuccessful at this time. 11:42: Pt being bagged by KORIN, 02% 79%. No pulse palpated, compressions started at this time; bharati young called and Dr. Newberry preparing OR for emergent c/s. 11:44: Continued compressions on stretcher while transporting pt to OR 1. Pt being bagged with jaw thrust manuever in place by KORIN Stringer student. 11:45: Arrival to OR 1. Dr. Newberry and Dr. Escobedo present for emergent c/s. Code team arrived for continued care. patient revived and c/s done Patient has been bleeding from C/s saite Patient transfused 10 units of PRBC Patient in DIC Past History Past Medical History: GERD, hypertension, seizures, other (Asthma) Past Surgical History: Social history: , full code Family history: hypertension Medications and Allergies Allergies Allergy/AdvReac Type Severity Reaction Status Date / Time egg Allergy Severe Anaphylaxis Verified 05/22/20 16:09 NSAIDS (Non-Steroidal Allergy Severe Unknown Verified 05/22/20 16:09 Anti-Inflamma Sulfa (Sulfonamide Allergy Severe Anaphylaxis Verified 05/22/20 16:09 Antibiotics) ibuprofen Allergy Intermediate Bleeding Verified 05/22/20 16:09 latex Allergy Hives Verified 05/22/20 16:09 plecanatide [From Trulance] Allergy Anaphylaxis Verified 05/22/20 16:09 adhesive tape AdvReac Intermediate Unknown Verified 05/22/20 16:09 metoclopramide [From Reglan] AdvReac Unknown Verified 05/22/20 16:09 Home Medications Medication Instructions Recorded Confirmed Last Taken Type Pantoprazole [Protonix TAB] 20 mg PO DAILY 05/10/19 08/20/20 05/10/19 05:00 History busPIRone 15 mg PO DAILY 01/15/20 08/20/20 Unknown History Albuterol Sulfate [Proventil Hfa] 6.7 gm IH Q4HR PRN #1 hfa.aer.ad 04/07/20 08/20/20 Unknown Rx Topiramate (Nf) [Trokendi XR CAP] 100 mg PO DAILY 08/20/20 08/20/20 Unknown History oxyCODONE /ACETAMINOPHEN [Percocet 1 tab PO Q6HR 08/20/20 08/20/20 Unknown History 5/325 mg] Active Meds: Active Medications Citric Acid/Sodium Citrate (Bicitra Oral Liqd 30ml) 30 ml PO ONCE ERINN Stop: 10/03/20 16:08 Famotidine (Famotidine 20 Mg/2 Ml Inj) 20 mg IV ONCE ERINN Stop: 10/03/20 16:08 Lactated Ringer's (Lactated Ringers) 1,000 mls @ 2,250 mls/hr IV PREOP ERINN Stop: 10/03/20 16:42 Last Admin: 10/02/20 16:45 Dose: 2,250 mls/hr Documented by: Oxytocin/Sodium Chloride (Pitocin/Ns 30 Unit/500ml) 30 units in 500 mls @ 0 mls/hr IV TITR ERINN; Protocol Cefazolin Sodium (Ancef/Sterile Water 2 Gm/20 Ml) 2 gm in 20 mls @ 80 mls/hr IV PREOP NR; Protocol Stop: 10/03/20 16:59 Vasopressin 20 unit/ Sodium (Chloride) 101 mls @ 9.09 mls/hr IV TITR ERINN Last Admin: 10/02/20 16:40 Dose: 0.03 units/min, 9.09 mls/hr Documented by: Sodium Bicarbonate 75 meq/ (Dextrose) 1,075 mls @ 250 mls/hr IV DIRECT ERINN Last Admin: 10/02/20 21:11 Dose: 250 mls/hr Documented by: Phenylephrine HCl 100 mg/ (Sodium Chloride) 100 mls @ 3 mls/hr IV TITR ERINN; Protocol Last Admin: 10/03/20 00:30 Dose: 180 mcg/min, 10.8 mls/hr Documented by: Sodium Chloride (Nacl 0.9% 500 Ml) 500 mls @ 0 mls/hr IV ONCE ERINN Last Admin: 10/02/20 16:30 Dose: 100 mls/hr Documented by: Epinephrine 8 mg/ Sodium (Chloride) 250 mls @ 3.75 mls/hr IV TITR ERINN; Protocol Last Titration: 10/02/20 20:35 Dose: 7 mcg/min, 13.125 mls/hr Documented by: Lactated Ringer's (Lactated Ringers) 1,000 mls @ 999 mls/hr IV DIRECT ERINN Stop: 10/07/20 19:46 Last Admin: 10/02/20 21:54 Dose: 999 mls/hr Documented by: Sodium Chloride (Nacl 0.9% 500 Ml) 500 mls @ 0 mls/hr IV ONCE ERINN Stop: 10/03/20 06:00 Sodium Chloride (Nacl 0.9% 500 Ml) 500 mls @ 0 mls/hr IV ONCE ERINN Norepinephrine 8 mg/ Sodium (Chloride) 250 mls @ 3.75 mls/hr IV TITR ERINN; Protocol Lorazepam (Lorazepam 2 Mg/Ml Vial) 2 mg IV Q2H PRN PRN Reason: Seizures Metoclopramide HCl (Metoclopramide 10 Mg/2 Ml Inj) 10 mg IV ONCE ERINN Review of Systems All systems: negative Cardiovascular: rapid/irregular heart beat, other (S/p Cardiac arrest--Hypotension) Gastrointestinal: abdominal pain, other (Bleeding from c section site) Exam - Physical Exam Narrative exam: Patient intubated - Constitutional Vitals: Temp Pulse Resp BP Pulse Ox 97.8 F 124 H 20 111/79 99 10/03/20 00:00 10/03/20 00:15 10/03/20 00:15 10/03/20 00:15 10/03/20 00:15 General appearance: Present: severe distress, well-nourished - EENT Eyes: Present: PERRL ENT: hearing intact, clear oral mucosa - Neck Neck: Present: supple, normal ROM - Respiratory Respiratory effort: normal Respiratory: bilateral: CTA - Cardiovascular Heart rate: 120 Rhythm: regular Heart Sounds: Present: S1 & S2. Absent: rub, click - Extremities Extremities: no ischemia, pulses symmetrical, No edema Peripheral Pulses: within normal limits - Abdominal General gastrointestinal: Present: distended, normal bowel sounds, other (Bleeding into AVINASH drain) Female genitourinary: Present: normal - Integumentary Integumentary: Present: clear, warm, dry - Musculoskeletal Musculoskeletal: gait normal, strength equal bilaterally - Psychiatric Psychiatric: appropriate mood/affect, intact judgment & insight - Neurologic Neurologic: CNII-XII intact, moves all extremities HEART Score - HEART Score History: Highly suspicious Age: < 45 Risk factors: 1-2 risk factors - Critical Actions Critical Actions: >7 pts:50-65% risk of adverse cardiac event. Early invasive me asures Results - Labs CBC & Chem 7: 10/02/20 18:18 10/02/20 16:35 Labs: Abnormal lab results 10/02/20 10/02/20 10/02/20 Range/Units 12:03 12:18 12:18 WBC 14.9 H (4.5-11.0) K/mm3 RBC (3.65-5.03) M/mm3 Hgb 9.1 L (10.1-14.3) gm/dl Hct (30.3-42.9) % MCV (79-97) fl MCH 22 L (28-32) pg MCHC 28 L (30-34) % RDW 17.6 H (13.2-15.2) % Plt Count 102 L (140-440) K/mm3 Seg Neuts % (Manual) 36.0 L (40.0-70.0) % Lymphocytes % (Manual) 49.0 H (13.4-35.0) % Monocytes % (Manual) (0.0-7.3) % Nucleated RBC % 6.0 H (0.0-0.9) % Seg Neutrophils # Man (1.8-7.7) K/mm3 Lymphocytes # (Manual) 7.3 H (1.2-5.4) K/mm3 Monocytes # (Manual) (0.0-0.8) K/mm3 PT (12.2-14.9) Sec. INR (0.87-1.13) APTT (24.2-36.6) Sec. Fibrinogen (211-480) mg/dl D-Dimer (0-234) ng/mlDDU ABG pH (7.350-7.450) pH Units ABG pO2 (80.0-90.0) mm Hg ABG HCO3 (20.0-26.0) mmol/L ABG Base Excess (-2.0-3.0) mmol/L ABG Hemoglobin (12.0-16.0) gm/dl VBG pH (7.320-7.420) Oxyhemoglobin (95.0-99.0) % Sodium 134 L (137-145) mmol/L Carbon Dioxide 12 L (22-30) mmol/L BUN 6 L (7-17) mg/dL Glucose 390 H (65-100) mg/dL POC Glucose 451 H (70-105) mg/dL Lactic Acid (0.7-2.0) mmol/L Calcium (8.4-10.2) mg/dL AST 135 H (5-40) units/L ALT 85 H (7-56) units/L Alkaline Phosphatase 172 H (35-129) units/L Lactate Dehydrogenase 641 H (91-180) units/L Total Protein 5.4 L (6.3-8.2) g/dL Albumin 2.3 L (3.9-5) g/dL Crossmatch 10/02/20 10/02/20 10/02/20 Range/Units 12:50 13:05 13:05 WBC 38.6 H (4.5-11.0) K/mm3 RBC (3.65-5.03) M/mm3 Hgb 8.9 L (10.1-14.3) gm/dl Hct 29.0 L (30.3-42.9) % MCV 73 L (79-97) fl MCH 22 L (28-32) pg MCHC (30-34) % RDW 17.2 H (13.2-15.2) % Plt Count (140-440) K/mm3 Seg Neuts % (Manual) (40.0-70.0) % Lymphocytes % (Manual) (13.4-35.0) % Monocytes % (Manual) (0.0-7.3) % Nucleated RBC % 2.0 H (0.0-0.9) % Seg Neutrophils # Man 20.1 H (1.8-7.7) K/mm3 Lymphocytes # (Manual) 10.4 H (1.2-5.4) K/mm3 Monocytes # (Manual) 2.3 H (0.0-0.8) K/mm3 PT (12.2-14.9) Sec. INR (0.87-1.13) APTT (24.2-36.6) Sec. Fibrinogen (211-480) mg/dl D-Dimer (0-234) ng/mlDDU ABG pH (7.350-7.450) pH Units ABG pO2 (80.0-90.0) mm Hg ABG HCO3 (20.0-26.0) mmol/L ABG Base Excess (-2.0-3.0) mmol/L ABG Hemoglobin (12.0-16.0) gm/dl VBG pH (7.320-7.420) Oxyhemoglobin (95.0-99.0) % Sodium (137-145) mmol/L Carbon Dioxide (22-30) mmol/L BUN (7-17) mg/dL Glucose (65-100) mg/dL POC Glucose (70-105) mg/dL Lactic Acid (0.7-2.0) mmol/L Calcium (8.4-10.2) mg/dL AST 184 H (5-40) units/L ALT 113 H (7-56) units/L Alkaline Phosphatase (35-129) units/L Lactate Dehydrogenase 769 H (91-180) units/L Total Protein (6.3-8.2) g/dL Albumin (3.9-5) g/dL Crossmatch See Detail 10/02/20 10/02/20 10/02/20 Range/Units 16:25 16:35 16:35 WBC (4.5-11.0) K/mm3 RBC (3.65-5.03) M/mm3 Hgb (10.1-14.3) gm/dl Hct (30.3-42.9) % MCV (79-97) fl MCH (28-32) pg MCHC (30-34) % RDW (13.2-15.2) % Plt Count (140-440) K/mm3 Seg Neuts % (Manual) (40.0-70.0) % Lymphocytes % (Manual) (13.4-35.0) % Monocytes % (Manual) (0.0-7.3) % Nucleated RBC % (0.0-0.9) % Seg Neutrophils # Man (1.8-7.7) K/mm3 Lymphocytes # (Manual) (1.2-5.4) K/mm3 Monocytes # (Manual) (0.0-0.8) K/mm3 PT (12.2-14.9) Sec. INR (0.87-1.13) APTT (24.2-36.6) Sec. Fibrinogen (211-480) mg/dl D-Dimer (0-234) ng/mlDDU ABG pH 7.031 L* (7.350-7.450) pH Units ABG pO2 116.8 H (80.0-90.0) mm Hg ABG HCO3 12.7 L (20.0-26.0) mmol/L ABG Base Excess -16.9 L (-2.0-3.0) mmol/L ABG Hemoglobin 7.8 L (12.0-16.0) gm/dl VBG pH (7.320-7.420) Oxyhemoglobin 94.9 L (95.0-99.0) % Sodium (137-145) mmol/L Carbon Dioxide (22-30) mmol/L BUN (7-17) mg/dL Glucose 403 H (65-100) mg/dL POC Glucose (70-105) mg/dL Lactic Acid 11.40 H* (0.7-2.0) mmol/L Calcium 6.3 L D (8.4-10.2) mg/dL AST 70 H (5-40) units/L ALT (7-56) units/L Alkaline Phosphatase (35-129) units/L Lactate Dehydrogenase (91-180) units/L Total Protein 1.9 L D (6.3-8.2) g/dL Albumin 1.2 L (3.9-5) g/dL Crossmatch 10/02/20 10/02/20 10/02/20 Range/Units 18:18 18:18 22:30 WBC 11.5 H (4.5-11.0) K/mm3 RBC 2.06 L (3.65-5.03) M/mm3 Hgb 5.5 L* D (10.1-14.3) gm/dl Hct 17.3 L* D (30.3-42.9) % MCV (79-97) fl MCH 27 L (28-32) pg MCHC (30-34) % RDW 19.5 H (13.2-15.2) % Plt Count 60 L (140-440) K/mm3 Seg Neuts % (Manual) (40.0-70.0) % Lymphocytes % (Manual) 8.0 L (13.4-35.0) % Monocytes % (Manual) 8.0 H (0.0-7.3) % Nucleated RBC % 8.0 H (0.0-0.9) % Seg Neutrophils # Man (1.8-7.7) K/mm3 Lymphocytes # (Manual) 0.9 L (1.2-5.4) K/mm3 Monocytes # (Manual) 0.9 H (0.0-0.8) K/mm3 PT 37.1 H (12.2-14.9) Sec. INR 3.71 H (0.87-1.13) APTT 135.8 H* (24.2-36.6) Sec. Fibrinogen (211-480) mg/dl D-Dimer (0-234) ng/mlDDU ABG pH 7.067 L* (7.350-7.450) pH Units ABG pO2 183.0 H (80.0-90.0) mm Hg ABG HCO3 14.1 L (20.0-26.0) mmol/L ABG Base Excess -15.1 L (-2.0-3.0) mmol/L ABG Hemoglobin 7.7 L (12.0-16.0) gm/dl VBG pH (7.320-7.420) Oxyhemoglobin (95.0-99.0) % Sodium (137-145) mmol/L Carbon Dioxide (22-30) mmol/L BUN (7-17) mg/dL Glucose (65-100) mg/dL POC Glucose (70-105) mg/dL Lactic Acid (0.7-2.0) mmol/L Calcium (8.4-10.2) mg/dL AST (5-40) units/L ALT (7-56) units/L Alkaline Phosphatase (35-129) units/L Lactate Dehydrogenase (91-180) units/L Total Protein (6.3-8.2) g/dL Albumin (3.9-5) g/dL Crossmatch 10/02/20 10/02/20 10/03/20 Range/Units Unknown Unknown 00:01 WBC (4.5-11.0) K/mm3 RBC (3.65-5.03) M/mm3 Hgb (10.1-14.3) gm/dl Hct (30.3-42.9) % MCV (79-97) fl MCH (28-32) pg MCHC (30-34) % RDW (13.2-15.2) % Plt Count (140-440) K/mm3 Seg Neuts % (Manual) (40.0-70.0) % Lymphocytes % (Manual) (13.4-35.0) % Monocytes % (Manual) (0.0-7.3) % Nucleated RBC % (0.0-0.9) % Seg Neutrophils # Man (1.8-7.7) K/mm3 Lymphocytes # (Manual) (1.2-5.4) K/mm3 Monocytes # (Manual) (0.0-0.8) K/mm3 PT 61.1 H (12.2-14.9) Sec. INR 6.92 H* (0.87-1.13) APTT 158.7 H* (24.2-36.6) Sec. Fibrinogen < 60 L* (211-480) mg/dl D-Dimer > 19155 H (0-234) ng/mlDDU ABG pH (7.350-7.450) pH Units ABG pO2 (80.0-90.0) mm Hg ABG HCO3 (20.0-26.0) mmol/L ABG Base Excess (-2.0-3.0) mmol/L ABG Hemoglobin (12.0-16.0) gm/dl VBG pH 6.949 L* (7.320-7.420) Oxyhemoglobin (95.0-99.0) % Sodium (137-145) mmol/L Carbon Dioxide (22-30) mmol/L BUN (7-17) mg/dL Glucose (65-100) mg/dL POC Glucose 196 H (70-105) mg/dL Lactic Acid (0.7-2.0) mmol/L Calcium (8.4-10.2) mg/dL AST (5-40) units/L ALT (7-56) units/L Alkaline Phosphatase (35-129) units/L Lactate Dehydrogenase (91-180) units/L Total Protein (6.3-8.2) g/dL Albumin (3.9-5) g/dL Crossmatch Short CBC 10/02/20 10/02/20 10/02/20 Range/Units : 13:05 18:18 WBC 14.9 H 38.6 H 11.5 H (4.5-11.0) K/mm3 Hgb 9.1 L 8.9 L 5.5 L* D (10.1-14.3) gm/dl Hct 32.4 29.0 L 17.3 L* D (30.3-42.9) % Plt Count 102 L 232 D 60 L (140-440) K/mm3 BMP 10/02/20 10/02/20 10/02/20:18 13:05 16:35 Sodium 134 L 140 Potassium 4.4 3.8 Chloride 98.8 104.2 Carbon Dioxide 12 L 22 D BUN 6 L 7 Creatinine 0.9 0.9 0.8 Glucose 390 H 403 H Calcium 9.3 6.3 L D Liver Function 10/02/20 10/02/20 10/02/20 Range/Units 12:18 13:05 16:35 Total Bilirubin 0.20 0.50 (0.1-1.2) mg/dL AST 135 H 184 H 70 H (5-40) units/L ALT 85 H 113 H 33 (7-56) units/L Alkaline Phosphatase 172 H 73 (35-129) units/L Albumin 2.3 L 1.2 L (3.9-5) g/dL Assessment and Plan - Patient Problems (1) Acute respiratory failure with hypoxia Current Visit: Yes Status: Acute Plan to address problem: Patient intubated Vent management (2) DIC (disseminated intravascular coagulation) Current Visit: Yes Status: Acute Plan to address problem: Patient recieved muptiple units of PRBC 10 to 14 units heme consult requested by Dr Worthy in AM (3) Cardiac arrest Current Visit: Yes Status: Acute Plan to address problem: ACLS protocol followed by revival (4) Hypotension due to blood loss Current Visit: Yes Status: Acute Plan to address problem: Patient on 4 pressors Poor prognosis (5) DVT prophylaxis Current Visit: Yes Status: Acute Plan to address problem: Patient in DIC No anticoagulants Poor prognosis
[2020-10-03] MEDS: NORepinephrine 8 MG in SODIUM CHLORIDE 0.9% 250ML 242 ML IV SCH ×5 (01:12→18:25)
[2020-10-03] MEDS: SODIUM BICARBONATE 75 MEQ in DEXTROSE 5% IN WATER 1,000 ML IV SCH ×6 (01:15→22:46)
[2020-10-03] MEDS: VASOPRESSIN 20 UNIT in SODIUM CHLORIDE 0.9% 100 ML IV SCH ×2 (01:23→08:45)
[2020-10-03] MEDS: LACTATED RINGERS 1,000 ML IV SCH ×4 (01:53→10:54)
[2020-10-03 02:29] LABS: Hematocrit 29.9 % (30.3-42.9); Hemoglobin 9.9 gm/dl (10.1-14.3); Mean Corpuscular HGB Conc 33 % (30-34); Mean Corpuscular Volume 92 fl (79-97); Red Blood Count 3.27 M/mm3 (3.65-5.03); Red Cell Distribution Width 16.5 % (13.2-15.2)
[2020-10-03 02:43] LABS: Platelet Count 75 K/mm3 (140-440)
[2020-10-03 02:46] LABS: Calcium 6.4 mg/dL (8.4-10.2)
[2020-10-03 04:49] LABS: Band Neutrophils # (Manual) 0.7 K/mm3; Total Cells Counted 100
[2020-10-03 04:50] LABS: Anisocytosis 1+; Platelet Estimate Consistent w Auto
[2020-10-03] MEDS: EPINEPHrine 1 MG/1 ML 8 MG in SODIUM CHLORIDE 0.9% 250ML 242 ML IV SCH ×2 (08:36→22:23)
--- NOTE | 2020-10-03 09:14 | Hem/Onc Consultation ---
History of Present Illness - History of Present Illness heme consult Telecart not available discussed case with pt's nurse, full chart review 30yo obese AA woman with 36wk gestation, presented yesterday morning with seizure-->hypoxia-->urgent C section-->hysterectomy developed severe anemia-->received RBC transfusions (4 units) and plt 2 units has been receiving vasopressors-max, moderate vent requirement DATA reviewed below IMPRESSION: presumed ecclampsia recent severe anemia due to bleeding and "DIC" severe low fibrinogen with persistent bleeding after procedures critically ill now, on vent and max pressors bleeding from AVINASH drain PLAN: cryo transfusions and follow fibrinogen parameters for RBC and plt contact me with questions Home Medications Medication Instructions Recorded Confirmed Last Taken Pantoprazole [Protonix TAB] 20 mg PO DAILY 05/10/19 08/20/20 05/10/19 05:00 busPIRone 15 mg PO DAILY 01/15/20 08/20/20 Unknown Topiramate (Nf) [Trokendi XR CAP] 100 mg PO DAILY 08/20/20 08/20/20 Unknown oxyCODONE /ACETAMINOPHEN [Percocet 1 tab PO Q6HR 08/20/20 08/20/20 Unknown 5/325 mg] Previous Rx's Medication Instructions Recorded Last Taken Type Albuterol Sulfate [Proventil Hfa] 6.7 gm IH Q4HR PRN #1 hfa.aer.ad 04/07/20 Unknown Rx Active Medications Citric Acid/Sodium Citrate (Bicitra Oral Liqd 30ml) 30 ml PO ONCE ERINN Stop: 10/03/20 16:08 Famotidine (Famotidine 20 Mg/2 Ml Inj) 20 mg IV ONCE ERINN Stop: 10/03/20 16:08 Lactated Ringer's (Lactated Ringers) 1,000 mls @ 2,250 mls/hr IV PREOP ERINN Stop: 10/03/20 16:42 Last Admin: 10/02/20 16:45 Dose: 2,250 mls/hr Documented by: Oxytocin/Sodium Chloride (Pitocin/Ns 30 Unit/500ml) 30 units in 500 mls @ 0 mls/hr IV TITR ERINN; Protocol Cefazolin Sodium (Ancef/Sterile Water 2 Gm/20 Ml) 2 gm in 20 mls @ 80 mls/hr IV PREOP NR; Protocol Stop: 10/03/20 16:59 Vasopressin 20 unit/ Sodium (Chloride) 101 mls @ 9.09 mls/hr IV TITR ERINN Last Admin: 10/03/20 08:45 Dose: 0.03 units/min, 9.09 mls/hr Documented by: Sodium Bicarbonate 75 meq/ (Dextrose) 1,075 mls @ 250 mls/hr IV DIRECT ERINN Last Admin: 10/03/20 05:31 Dose: 250 mls/hr Documented by: Phenylephrine HCl 100 mg/ (Sodium Chloride) 100 mls @ 3 mls/hr IV TITR ERINN; Protocol Last Admin: 10/03/20 08:35 Dose: 380 mcg/min, 22.8 mls/hr Documented by: Sodium Chloride (Nacl 0.9% 500 Ml) 500 mls @ 0 mls/hr IV ONCE ERINN Last Admin: 10/02/20 16:30 Dose: 100 mls/hr Documented by: Epinephrine 8 mg/ Sodium (Chloride) 250 mls @ 3.75 mls/hr IV TITR ERINN; Protocol Last Admin: 10/03/20 08:36 Dose: 10 mcg/min, 18.75 mls/hr Documented by: Metoclopramide HCl (Metoclopramide 10 Mg/2 Ml Inj) 10 mg IV ONCE ERINN Laboratory Last Values WBC 17.6 K/mm3 (4.5-11.0) H 10/03/20 02:08 RBC 3.27 M/mm3 (3.65-5.03) L 10/03/20 02:08 Hgb 9.9 gm/dl (10.1-14.3) L D 10/03/20 02:08 Hct 29.9 % (30.3-42.9) L D 10/03/20 02:08 Plt Count 75 K/mm3 (140-440) L 10/03/20 02:08 PT 61.1 Sec. (12.2-14.9) H 10/02/20 Unknown INR 6.92 (0.87-1.13) H* 10/02/20 Unknown APTT 158.7 Sec. (24.2-36.6) H* 10/02/20 Unknown Fibrinogen < 60 mg/dl (211-480) L* 10/02/20 Unknown Creatinine 1.4 mg/dL (0.6-1.2) H D 10/03/20 02:08 Lactic Acid 9.20 mmol/L (0.7-2.0) H* 10/03/20 02:42 AST 70 units/L (5-40) H 10/02/20 16:35 ALT 33 units/L (7-56) 10/02/20 16:35 Alkaline Phosphatase 73 units/L (35-129) 10/02/20 16:35 Lactate Dehydrogenase 769 units/L (91-180) H 10/02/20 13:05 Crossmatch See Detail 10/02/20 12:50 Past History Past Medical History: GERD, hypertension, seizures, other (Asthma) Past Surgical History: Social history: , full code Family history: hypertension Medications and Allergies Allergies Allergy/AdvReac Type Severity Reaction Status Date / Time egg Allergy Severe Anaphylaxis Verified 05/22/20 16:09 NSAIDS (Non-Steroidal Allergy Severe Unknown Verified 05/22/20 16:09 Anti-Inflamma Sulfa (Sulfonamide Allergy Severe Anaphylaxis Verified 05/22/20 16:09 Antibiotics) ibuprofen Allergy Intermediate Bleeding Verified 05/22/20 16:09 latex Allergy Hives Verified 05/22/20 16:09 plecanatide [From Trulance] Allergy Anaphylaxis Verified 05/22/20 16:09 adhesive tape AdvReac Intermediate Unknown Verified 05/22/20 16:09 metoclopramide [From Reglan] AdvReac Unknown Verified 05/22/20 16:09 Home Medications Medication Instructions Recorded Confirmed Last Taken Type Pantoprazole [Protonix TAB] 20 mg PO DAILY 05/10/19 08/20/20 05/10/19 05:00 History busPIRone 15 mg PO DAILY 01/15/20 08/20/20 Unknown History Albuterol Sulfate [Proventil Hfa] 6.7 gm IH Q4HR PRN #1 hfa.aer.ad 04/07/20 08/20/20 Unknown Rx Topiramate (Nf) [Trokendi XR CAP] 100 mg PO DAILY 08/20/20 08/20/20 Unknown History oxyCODONE /ACETAMINOPHEN [Percocet 1 tab PO Q6HR 08/20/20 08/20/20 Unknown History 5/325 mg] Active Meds: Active Medications Citric Acid/Sodium Citrate (Bicitra Oral Liqd 30ml) 30 ml PO ONCE ERINN Stop: 10/03/20 16:08 Famotidine (Famotidine 20 Mg/2 Ml Inj) 20 mg IV ONCE ERINN Stop: 10/03/20 16:08 Lactated Ringer's (Lactated Ringers) 1,000 mls @ 2,250 mls/hr IV PREOP ERINN Stop: 10/03/20 16:42 Last Admin: 10/02/20 16:45 Dose: 2,250 mls/hr Documented by: Oxytocin/Sodium Chloride (Pitocin/Ns 30 Unit/500ml) 30 units in 500 mls @ 0 mls/hr IV TITR ERINN; Protocol Cefazolin Sodium (Ancef/Sterile Water 2 Gm/20 Ml) 2 gm in 20 mls @ 80 mls/hr IV PREOP NR; Protocol Stop: 10/03/20 16:59 Vasopressin 20 unit/ Sodium (Chloride) 101 mls @ 9.09 mls/hr IV TITR ERINN Last Admin: 10/03/20 08:45 Dose: 0.03 units/min, 9.09 mls/hr Documented by: Sodium Bicarbonate 75 meq/ (Dextrose) 1,075 mls @ 250 mls/hr IV DIRECT ERINN Last Admin: 10/03/20 05:31 Dose: 250 mls/hr Documented by: Phenylephrine HCl 100 mg/ (Sodium Chloride) 100 mls @ 3 mls/hr IV TITR ERINN; Protocol Last Admin: 10/03/20 08:35 Dose: 380 mcg/min, 22.8 mls/hr Documented by: Sodium Chloride (Nacl 0.9% 500 Ml) 500 mls @ 0 mls/hr IV ONCE ERINN Last Admin: 10/02/20 16:30 Dose: 100 mls/hr Documented by: Epinephrine 8 mg/ Sodium (Chloride) 250 mls @ 3.75 mls/hr IV TITR ERINN; Protocol Last Admin: 10/03/20 08:36 Dose: 10 mcg/min, 18.75 mls/hr Documented by: Lactated Ringer's (Lactated Ringers) 1,000 mls @ 999 mls/hr IV DIRECT ERINN Stop: 10/07/20 19:46 Last Admin: 10/03/20 06:41 Dose: 999 mls/hr Documented by: Sodium Chloride (Nacl 0.9% 500 Ml) 500 mls @ 0 mls/hr IV ONCE ERINN Norepinephrine 8 mg/ Sodium (Chloride) 250 mls @ 3.75 mls/hr IV TITR ERINN; Protocol Last Admin: 10/03/20 05:34 Dose: 30 mcg/min, 56.25 mls/hr Documented by: Lorazepam (Lorazepam 2 Mg/Ml Vial) 2 mg IV Q2H PRN PRN Reason: Seizures Metoclopramide HCl (Metoclopramide 10 Mg/2 Ml Inj) 10 mg IV ONCE ERINN Exam - Constitutional Vitals: Last Vital Signs Temp 99.5 F 10/03/20 08:00 Pulse 123 H 10/03/20 08:45 Resp 34 H 10/03/20 08:45 BP 122/72 10/03/20 08:45 Pulse Ox 90 10/03/20 08:45 Results - Labs lab Results: Laboratory Results - last 24 hr 10/02/20 10/02/20 10/02/20 12:03 12:18 12:18 WBC 14.9 H RBC 4.10 Hgb 9.1 L Hct 32.4 MCV 79 MCH 22 L MCHC 28 L RDW 17.6 H Plt Count 102 L Lymph # (Auto) [employer] Add Manual Diff Complete Total Counted 100 Seg Neuts % (Manual) 36.0 L Band Neutrophils % 6.0 Lymphocytes % (Manual) 49.0 H Reactive Lymphs % (Man) 1.0 Monocytes % (Manual) 3.0 Metamyelocytes % 2.0 Myelocytes % 3.0 Nucleated RBC % 6.0 H Seg Neutrophils # Man 5.4 Band Neutrophils # 0.9 Lymphocytes # (Manual) 7.3 H Abs React Lymphs (Man) 0.1 Monocytes # (Manual) 0.4 Eosinophils # (Manual) 0.0 Basophils # (Manual) 0.0 Metamyelocytes # 0.3 Myelocytes # 0.4 Promyelocytes # 0.0 Blast Cells # 0.0 WBC Morphology Not Reportable Hypersegmented Neuts Not Reportable Hyposegmented Neuts Not Reportable Hypogranular Neuts Not Reportable Smudge Cells Not Reportable Toxic Granulation Not Reportable Toxic Vacuolation Not Reportable Dohle Bodies Not Reportable Pelger-Huet Anomaly Not Reportable Ester Rods Not Reportable Platelet Estimate Consistent w auto Clumped Platelets Not Reportable Plt Clumps, EDTA Not Reportable Large Platelets Not Reportable Giant Platelets Not Reportable Platelet Satelliting Not Reportable Plt Morphology Comment Not Reportable RBC Morphology Not Reportable Dimorphic RBCs Not Reportable Polychromasia Not Reportable Hypochromasia Few Poikilocytosis Not Reportable Anisocytosis 1+ Microcytosis Few Macrocytosis Not Reportable Spherocytes Not Reportable Pappenheimer Bodies Not Reportable Sickle Cells Not Reportable Target Cells Not Reportable Tear Drop Cells Not Reportable Ovalocytes Not Reportable Helmet Cells Not Reportable Burk-[place] Bodies Not Reportable [place] Rings Not Reportable Anto[place] Cells Not Reportable Bite Cells Not Reportable Crenated Cell Not Reportable Elliptocytes Not Reportable Acanthocytes (Spur) Not Reportable Rouleaux Not Reportable Hemoglobin C Crystals Not Reportable Schistocytes Not Reportable Malaria parasites Not Reportable Sharad Bodies Not Reportable Hem Pathologist Commnt No PT INR APTT Fibrinogen D-Dimer ABG pH POC ABG pCO2 ABG pCO2 POC ABG pO2 ABG pO2 POC ABG HCO3 ABG HCO3 ABG O2 Saturation ABG O2 Content POC ABG Base Excess ABG Base Excess ABG Hemoglobin ABG Carboxyhemoglobin ABG Methemoglobin ABG Sodium ABG Potassium ABG Chloride ABG Glucose VBG pH Oxyhemoglobin FiO2 Sodium 134 L Potassium 4.4 Chloride 98.8 Carbon Dioxide 12 L Anion Gap 28 BUN 6 L Creatinine 0.9 Estimated GFR > 60 BUN/Creatinine Ratio 7 Glucose 390 H POC Glucose 451 H Lactic Acid Uric Acid 7.1 Calcium 9.3 Total Bilirubin 0.20 AST 135 H ALT 85 H Alkaline Phosphatase 172 H Lactate Dehydrogenase 641 H Total Protein 5.4 L Albumin 2.3 L Albumin/Globulin Ratio 0.7 Arterial Blood Glucose Arterial Blood Ionized Calcium Blood Type Antibody Screen Crossmatch 10/02/20 10/02/20 10/02/20 12:50 13:05 13:05 WBC 38.6 H RBC 3.98 Hgb 8.9 L Hct 29.0 L MCV 73 L MCH 22 L MCHC 31 RDW 17.2 H Plt Count 232 D Lymph # (Auto) [employer] Add Manual Diff Complete Total Counted 100 Seg Neuts % (Manual) 52.0 Band Neutrophils % 11.0 Lymphocytes % (Manual) 27.0 Reactive Lymphs % (Man) Monocytes % (Manual) 6.0 Metamyelocytes % 2.0 Myelocytes % 2.0 Nucleated RBC % 2.0 H Seg Neutrophils # Man 20.1 H Band Neutrophils # 4.2 Lymphocytes # (Manual) 10.4 H Abs React Lymphs (Man) 0.0 Monocytes # (Manual) 2.3 H Eosinophils # (Manual) 0.0 Basophils # (Manual) 0.0 Metamyelocytes # 0.8 Myelocytes # 0.8 Promyelocytes # 0.0 Blast Cells # 0.0 WBC Morphology Not Reportable Hypersegmented Neuts Not Reportable Hyposegmented Neuts Not Reportable Hypogranular Neuts Not Reportable Smudge Cells Not Reportable Toxic Granulation Not Reportable Toxic Vacuolation Not Reportable Dohle Bodies Not Reportable Pelger-Huet Anomaly Not Reportable Ester Rods Not Reportable Platelet Estimate Consistent w auto Clumped Platelets Not Reportable Plt Clumps, EDTA Not Reportable Large Platelets Not Reportable Giant Platelets Not Reportable Platelet Satelliting Not Reportable Plt Morphology Comment Not Reportable RBC Morphology Not Reportable Dimorphic RBCs Not Reportable Polychromasia Rare Hypochromasia 1+ Poikilocytosis Not Reportable Anisocytosis 1+ Microcytosis Not Reportable Macrocytosis Not Reportable Spherocytes Not Reportable Pappenheimer Bodies Not Reportable Sickle Cells Not Reportable Target Cells Not Reportable Tear Drop Cells Not Reportable Ovalocytes Not Reportable Helmet Cells Not Reportable Burk-[place] Bodies Not Reportable [place] Rings Not Reportable Anto[place] Cells Not Reportable Bite Cells Not Reportable Crenated Cell Not Reportable Elliptocytes Not Reportable Acanthocytes (Spur) Not Reportable Rouleaux Not Reportable Hemoglobin C Crystals Not Reportable Schistocytes Not Reportable Malaria parasites Not Reportable Sharad Bodies Not Reportable Hem Pathologist Commnt No PT INR APTT Fibrinogen D-Dimer ABG pH POC ABG pCO2 ABG pCO2 POC ABG pO2 ABG pO2 POC ABG HCO3 ABG HCO3 ABG O2 Saturation ABG O2 Content POC ABG Base Excess ABG Base Excess ABG Hemoglobin ABG Carboxyhemoglobin ABG Methemoglobin ABG Sodium ABG Potassium ABG Chloride ABG Glucose VBG pH Oxyhemoglobin FiO2 Sodium Potassium Chloride Carbon Dioxide Anion Gap BUN Creatinine 0.9 Estimated GFR > 60 BUN/Creatinine Ratio Glucose POC Glucose Lactic Acid Uric Acid 7.5 Calcium Total Bilirubin AST 184 H ALT 113 H Alkaline Phosphatase Lactate Dehydrogenase 769 H Total Protein Albumin Albumin/Globulin Ratio Arterial Blood Glucose Arterial Blood Ionized Calcium Blood Type O POSITIVE Antibody Screen Negative Crossmatch See Detail 10/02/20 10/02/20 10/02/20 16:25 16:35 16:35 WBC RBC Hgb Hct MCV MCH MCHC RDW Plt Count Lymph # (Auto) Add Manual Diff Total Counted Seg Neuts % (Manual) Band Neutrophils % Lymphocytes % (Manual) Reactive Lymphs % (Man) Monocytes % (Manual) Metamyelocytes % Myelocytes % Nucleated RBC % Seg Neutrophils # Man Band Neutrophils # Lymphocytes # (Manual) Abs React Lymphs (Man) Monocytes # (Manual) Eosinophils # (Manual) Basophils # (Manual) Metamyelocytes # Myelocytes # Promyelocytes # Blast Cells # WBC Morphology Hypersegmented Neuts Hyposegmented Neuts Hypogranular Neuts Smudge Cells Toxic Granulation Toxic Vacuolation Dohle Bodies Pelger-Huet Anomaly Ester Rods Platelet Estimate Clumped Platelets Plt Clumps, EDTA Large Platelets Giant Platelets Platelet Satelliting Plt Morphology Comment RBC Morphology Dimorphic RBCs Polychromasia Hypochromasia Poikilocytosis Anisocytosis Microcytosis Macrocytosis Spherocytes Pappenheimer Bodies Sickle Cells Target Cells Tear Drop Cells Ovalocytes Helmet Cells Burk-[place] Bodies [place] Rings Antoine Cells Bite Cells Crenated Cell Elliptocytes Acanthocytes (Spur) Rouleaux Hemoglobin C Crystals Schistocytes Malaria parasites Sharad Bodies Hem Pathologist Commnt PT INR APTT Fibrinogen D-Dimer ABG pH 7.031 L* POC ABG pCO2 ABG pCO2 49.2 POC ABG pO2 ABG pO2 116.8 H POC ABG HCO3 ABG HCO3 12.7 L ABG O2 Saturation 96.8 ABG O2 Content 10.7 POC ABG Base Excess ABG Base Excess -16.9 L ABG Hemoglobin 7.8 L ABG Carboxyhemoglobin 1.4 ABG Methemoglobin 0.5 ABG Sodium ABG Potassium ABG Chloride ABG Glucose VBG pH Oxyhemoglobin 94.9 L FiO2 100 Sodium 140 Potassium 3.8 Chloride 104.2 Carbon Dioxide 22 D Anion Gap 18 BUN 7 Creatinine 0.8 Estimated GFR > 60 BUN/Creatinine Ratio 9 Glucose 403 H POC Glucose Lactic Acid 11.40 H* Uric Acid Calcium 6.3 L D Total Bilirubin 0.50 AST 70 H ALT 33 Alkaline Phosphatase 73 Lactate Dehydrogenase Total Protein 1.9 L D Albumin 1.2 L Albumin/Globulin Ratio 1.7 Arterial Blood Glucose Arterial Blood Ionized Calcium Blood Type Antibody Screen Crossmatch 10/02/20 10/02/20 10/02/20 18:18 18:18 22:30 WBC 11.5 H RBC 2.06 L Hgb 5.5 L* D Hct 17.3 L* D MCV 84 MCH 27 L MCHC 32 RDW 19.5 H Plt Count 60 L Lymph # (Auto) Add Manual Diff Complete Total Counted 100 Seg Neuts % (Manual) 51.0 Band Neutrophils % 32.0 Lymphocytes % (Manual) 8.0 L Reactive Lymphs % (Man) Monocytes % (Manual) 8.0 H Metamyelocytes % 1.0 Myelocytes % Nucleated RBC % 8.0 H Seg Neutrophils # Man 5.9 Band Neutrophils # 3.7 Lymphocytes # (Manual) 0.9 L Abs React Lymphs (Man) 0.0 Monocytes # (Manual) 0.9 H Eosinophils # (Manual) 0.0 Basophils # (Manual) 0.0 Metamyelocytes # 0.1 Myelocytes # 0.0 Promyelocytes # 0.0 Blast Cells # 0.0 WBC Morphology Not Reportable Hypersegmented Neuts Not Reportable Hyposegmented Neuts Not Reportable Hypogranular Neuts Not Reportable Smudge Cells Not Reportable Toxic Granulation Not Reportable Toxic Vacuolation Not Reportable Dohle Bodies Not Reportable Pelger-Huet Anomaly Not Reportable Ester Rods Not Reportable Platelet Estimate Consistent w auto Clumped Platelets Not Reportable Plt Clumps, EDTA Not Reportable Large Platelets Not Reportable Giant Platelets Not Reportable Platelet Satelliting Not Reportable Plt Morphology Comment Not Reportable RBC Morphology Not Reportable Dimorphic RBCs Not Reportable Polychromasia Rare Hypochromasia Not Reportable Poikilocytosis Not Reportable Anisocytosis Not Reportable Microcytosis Not Reportable Macrocytosis Not Reportable Spherocytes Not Reportable Pappenheimer Bodies Not Reportable Sickle Cells Not Reportable Target Cells Not Reportable Tear Drop Cells Rare Ovalocytes Rare Helmet Cells Not Reportable Burk-[place] Bodies Not Reportable [place] Rings Not Reportable [place] Cells Rare Bite Cells Not Reportable Crenated Cell Not Reportable Elliptocytes Not Reportable Acanthocytes (Spur) Not Reportable Rouleaux Not Reportable Hemoglobin C Crystals Not Reportable Schistocytes Not Reportable Malaria parasites Not Reportable Sharad Bodies Not Reportable Hem Pathologist Commnt No PT 37.1 H INR 3.71 H APTT 135.8 H* Fibrinogen D-Dimer ABG pH 7.067 L* POC ABG pCO2 ABG pCO2 50.0 POC ABG pO2 ABG pO2 183.0 H POC ABG HCO3 ABG HCO3 14.1 L ABG O2 Saturation 98.8 ABG O2 Content 10.9 POC ABG Base Excess ABG Base Excess -15.1 L ABG Hemoglobin 7.7 L ABG Carboxyhemoglobin 1.2 ABG Methemoglobin 0.5 ABG Sodium ABG Potassium ABG Chloride ABG Glucose VBG pH Oxyhemoglobin 97.1 FiO2 100 Sodium Potassium Chloride Carbon Dioxide Anion Gap BUN Creatinine Estimated GFR BUN/Creatinine Ratio Glucose POC Glucose Lactic Acid Uric Acid Calcium Total Bilirubin AST ALT Alkaline Phosphatase Lactate Dehydrogenase Total Protein Albumin Albumin/Globulin Ratio Arterial Blood Glucose Arterial Blood Ionized Calcium Blood Type Antibody Screen Crossmatch 10/02/20 10/02/20 10/03/20 Unknown Unknown 00:01 WBC RBC Hgb Hct MCV MCH MCHC RDW Plt Count Lymph # (Auto) Add Manual Diff Total Counted Seg Neuts % (Manual) Band Neutrophils % Lymphocytes % (Manual) Reactive Lymphs % (Man) Monocytes % (Manual) Metamyelocytes % Myelocytes % Nucleated RBC % Seg Neutrophils # Man Band Neutrophils # Lymphocytes # (Manual) Abs React Lymphs (Man) Monocytes # (Manual) Eosinophils # (Manual) Basophils # (Manual) Metamyelocytes # Myelocytes # Promyelocytes # Blast Cells # WBC Morphology Hypersegmented Neuts Hyposegmented Neuts Hypogranular Neuts Smudge Cells Toxic Granulation Toxic Vacuolation Dohle Bodies Pelger-Huet Anomaly Ester Rods Platelet Estimate Clumped Platelets Plt Clumps, EDTA Large Platelets Giant Platelets Platelet Satelliting Plt Morphology Comment RBC Morphology Dimorphic RBCs Polychromasia Hypochromasia Poikilocytosis Anisocytosis Microcytosis Macrocytosis Spherocytes Pappenheimer Bodies Sickle Cells Target Cells Tear Drop Cells Ovalocytes Helmet Cells Burk-[place] Bodies [place] Rings Antoine Cells Bite Cells Crenated Cell Elliptocytes Acanthocytes (Spur) Rouleaux Hemoglobin C Crystals Schistocytes Malaria parasites Sharad Bodies Hem Pathologist Commnt PT 61.1 H INR 6.92 H* APTT 158.7 H* Fibrinogen < 60 L* D-Dimer > 63002 H ABG pH POC ABG pCO2 ABG pCO2 POC ABG pO2 ABG pO2 POC ABG HCO3 ABG HCO3 ABG O2 Saturation ABG O2 Content POC ABG Base Excess ABG Base Excess ABG Hemoglobin ABG Carboxyhemoglobin ABG Methemoglobin ABG Sodium ABG Potassium ABG Chloride ABG Glucose VBG pH 6.949 L* Oxyhemoglobin FiO2 Sodium Potassium Chloride Carbon Dioxide Anion Gap BUN Creatinine Estimated GFR BUN/Creatinine Ratio Glucose POC Glucose 196 H Lactic Acid Uric Acid Calcium Total Bilirubin AST ALT Alkaline Phosphatase Lactate Dehydrogenase Total Protein Albumin Albumin/Globulin Ratio Arterial Blood Glucose Arterial Blood Ionized Calcium Blood Type Antibody Screen Crossmatch 10/03/20 10/03/20 10/03/20 02:08 02:08 02:08 WBC 17.6 H RBC 3.27 L Hgb 9.9 L D Hct 29.9 L D MCV 92 MCH 30 MCHC 33 RDW 16.5 H Plt Count 75 L Lymph # (Auto) Add Manual Diff Complete Total Counted 100 Seg Neuts % (Manual) 76.0 H Band Neutrophils % 4.0 Lymphocytes % (Manual) 17.0 Reactive Lymphs % (Man) Monocytes % (Manual) 3.0 Metamyelocytes % Myelocytes % Nucleated RBC % 8.0 H Seg Neutrophils # Man 13.4 H Band Neutrophils # 0.7 Lymphocytes # (Manual) 3.0 Abs React Lymphs (Man) 0.0 Monocytes # (Manual) 0.5 Eosinophils # (Manual) 0.0 Basophils # (Manual) 0.0 Metamyelocytes # 0.0 Myelocytes # 0.0 Promyelocytes # 0.0 Blast Cells # 0.0 WBC Morphology Not Reportable Hypersegmented Neuts Not Reportable Hyposegmented Neuts Not Reportable Hypogranular Neuts Not Reportable Smudge Cells Not Reportable Toxic Granulation Not Reportable Toxic Vacuolation Not Reportable Dohle Bodies Not Reportable Pelger-Huet Anomaly Not Reportable Ester Rods Not Reportable Platelet Estimate Consistent w auto Clumped Platelets Not Reportable Plt Clumps, EDTA Not Reportable Large Platelets Not Reportable Giant Platelets Not Reportable Platelet Satelliting Not Reportable Plt Morphology Comment Not Reportable RBC Morphology Not Reportable Dimorphic RBCs Not Reportable Polychromasia Not Reportable Hypochromasia Not Reportable Poikilocytosis Not Reportable Anisocytosis 1+ Microcytosis Not Reportable Macrocytosis Not Reportable Spherocytes Not Reportable Pappenheimer Bodies Not Reportable Sickle Cells Not Reportable Target Cells Not Reportable Tear Drop Cells Not Reportable Ovalocytes Not Reportable Helmet Cells Not Reportable Burk-[place] Bodies Not Reportable [place] Rings Not Reportable Antoine Cells Not Reportable Bite Cells Not Reportable Crenated Cell Not Reportable Elliptocytes Not Reportable Acanthocytes (Spur) Not Reportable Rouleaux Not Reportable Hemoglobin C Crystals Not Reportable Schistocytes Not Reportable Malaria parasites Not Reportable Sharad Bodies Not Reportable Hem Pathologist Commnt No PT INR APTT Fibrinogen D-Dimer ABG pH POC ABG pCO2 ABG pCO2 POC ABG pO2 ABG pO2 POC ABG HCO3 ABG HCO3 ABG O2 Saturation ABG O2 Content POC ABG Base Excess ABG Base Excess ABG Hemoglobin ABG Carboxyhemoglobin ABG Methemoglobin ABG Sodium ABG Potassium ABG Chloride ABG Glucose VBG pH Oxyhemoglobin FiO2 Sodium 142 Potassium 3.9 Chloride 106.5 Carbon Dioxide 19 L Anion Gap 20 BUN 12 Creatinine 1.4 H D Estimated GFR 53 BUN/Creatinine Ratio 9 Glucose 306 H POC Glucose Lactic Acid 10.50 H* Uric Acid Calcium 6.4 L Total Bilirubin AST ALT Alkaline Phosphatase Lactate Dehydrogenase Total Protein Albumin Albumin/Globulin Ratio Arterial Blood Glucose Arterial Blood Ionized Calcium Blood Type Antibody Screen Crossmatch 10/03/20 10/03/20 10/03/20 02:42 03:59 05:31 WBC RBC Hgb Hct MCV MCH MCHC RDW Plt Count Lymph # (Auto) Add Manual Diff Total Counted Seg Neuts % (Manual) Band Neutrophils % Lymphocytes % (Manual) Reactive Lymphs % (Man) Monocytes % (Manual) Metamyelocytes % Myelocytes % Nucleated RBC % Seg Neutrophils # Man Band Neutrophils # Lymphocytes # (Manual) Abs React Lymphs (Man) Monocytes # (Manual) Eosinophils # (Manual) Basophils # (Manual) Metamyelocytes # Myelocytes # Promyelocytes # Blast Cells # WBC Morphology Hypersegmented Neuts Hyposegmented Neuts Hypogranular Neuts Smudge Cells Toxic Granulation Toxic Vacuolation Dohle Bodies Pelger-Huet Anomaly Ester Rods Platelet Estimate Clumped Platelets Plt Clumps, EDTA Large Platelets Giant Platelets Platelet Satelliting Plt Morphology Comment RBC Morphology Dimorphic RBCs Polychromasia Hypochromasia Poikilocytosis Anisocytosis Microcytosis Macrocytosis Spherocytes Pappenheimer Bodies Sickle Cells Target Cells Tear Drop Cells Ovalocytes Helmet Cells Burk-[place] Bodies [place] Rings Antoine Cells Bite Cells Crenated Cell Elliptocytes Acanthocytes (Spur) Rouleaux Hemoglobin C Crystals Schistocytes Malaria parasites Sharad Bodies Hem Pathologist Commnt PT INR APTT Fibrinogen D-Dimer ABG pH 7.144 L POC ABG pCO2 54.4 H ABG pCO2 POC ABG pO2 95.6 ABG pO2 POC ABG HCO3 18.3 ABG HCO3 ABG O2 Saturation ABG O2 Content POC ABG Base Excess -10.5 ABG Base Excess ABG Hemoglobin 10.0 L ABG Carboxyhemoglobin ABG Methemoglobin ABG Sodium 137.9 ABG Potassium 3.8 ABG Chloride 108.0 H ABG Glucose 306 H VBG pH Oxyhemoglobin FiO2 100 Sodium Potassium Chloride Carbon Dioxide Anion Gap BUN Creatinine Estimated GFR BUN/Creatinine Ratio Glucose POC Glucose 209 H Lactic Acid 9.20 H* Uric Acid Calcium Total Bilirubin AST ALT Alkaline Phosphatase Lactate Dehydrogenase Total Protein Albumin Albumin/Globulin Ratio Arterial Blood Glucose 306 H Arterial Blood Ionized Calcium 3.7 L Blood Type Antibody Screen Crossmatch
[2020-10-03 09:41] LABS: Albumin 1.9 g/dL (3.9-5); Calcium 6.3 mg/dL (8.4-10.2)
[2020-10-03 10:42] LABS: Hematocrit 25.1 % (30.3-42.9); Hemoglobin 8.5 gm/dl (10.1-14.3); Mean Corpuscular HGB Conc 34 % (30-34); Mean Corpuscular Volume 89 fl (79-97); Red Blood Count 2.84 M/mm3 (3.65-5.03); Red Cell Distribution Width 16.1 % (13.2-15.2)
[2020-10-03 10:51] LABS: Platelet Count 72 K/mm3 (140-440)
[2020-10-03] MEDS ORDERED: LACTATED RINGERS 1,000 ML IV ONE ×4 (11:48→11:49)
[2020-10-03] MEDS ORDERED: VANCOMYCIN/NS 1 GM/250 ML 1 GM/250 ML BAG IV ONE (11:52)
[2020-10-03 12:00] LABS: Hematocrit 23.7 % (30.3-42.9); Mean Corpuscular HGB Conc 34 % (30-34); Mean Corpuscular Volume 89 fl (79-97); Red Blood Count 2.67 M/mm3 (3.65-5.03); Red Cell Distribution Width 16.6 % (13.2-15.2)
[2020-10-03] MEDS ORDERED: VANCOMYCIN PHARMACY TO DOSE IV SCH (12:00)
[2020-10-03 12:04] LABS: Platelet Count 76 K/mm3 (140-440)
[2020-10-03 12:10] LABS: ABG Base Excess -4.5 mmol/L (-2.0-3.0); ABG HCO3 22.7 mmol/L (20.0-26.0); ABG Methemoglobin 0.6 % (0.0-1.5); ABG Oxygen Saturation 96.7 % (95.0-99.0); ABG PCO2 53.6 mm Hg; ABG PH 7.244 pH Units (7.350-7.450); ABG PO2 89.3 mm Hg (80.0-90.0)
--- NOTE | 2020-10-03 12:15 | Consultation ---
History of Present Illness Consult date: 10/03/20 Requesting physician: KRISTEN ESCOBEDO Reason for consult: other (Cardiac Arrest, Pre-Ecclampsia, DIC, Acute Respiratory Failure) History of present illness: 30 y/o female admitted to the ICU post emergent for Eclampsia as patient had a seizure and cardiac arrest in registration. Patient currently intubated, not sedated and maxed on 5 pressors. Still making urine. Most recent pH is 7.2. On 100% FiO2. The documented transfusions I am not sure if they are accurate. H/H is at 8 and 24. Very very very sick currently. Past History Past Medical History: GERD, hypertension, seizures, other (IBD, MIGRAINES, Anxiety, Genital Herpes, Obesity) Past Surgical History: Social history: , full code Family history: hypertension Medications and Allergies Allergies Allergy/AdvReac Type Severity Reaction Status Date / Time egg Allergy Severe Anaphylaxis Verified 05/22/20 16:09 NSAIDS (Non-Steroidal Allergy Severe Unknown Verified 05/22/20 16:09 Anti-Inflamma Sulfa (Sulfonamide Allergy Severe Anaphylaxis Verified 05/22/20 16:09 Antibiotics) ibuprofen Allergy Intermediate Bleeding Verified 05/22/20 16:09 latex Allergy Hives Verified 05/22/20 16:09 plecanatide [From Trulance] Allergy Anaphylaxis Verified 05/22/20 16:09 adhesive tape AdvReac Intermediate Unknown Verified 05/22/20 16:09 metoclopramide [From Reglan] AdvReac Unknown Verified 05/22/20 16:09 Home Medications Medication Instructions Recorded Confirmed Last Taken Type Pantoprazole [Protonix TAB] 20 mg PO DAILY 05/10/19 08/20/20 05/10/19 05:00 History busPIRone 15 mg PO DAILY 01/15/20 08/20/20 Unknown History Albuterol Sulfate [Proventil Hfa] 6.7 gm IH Q4HR PRN #1 hfa.aer.ad 04/07/2003/04 Unknown Rx Topiramate (Nf) [Trokendi XR CAP] 100 mg PO DAILY 08/20/20 08/20/20 Unknown History oxyCODONE /ACETAMINOPHEN [Percocet 1 tab PO Q6HR 08/20/20 08/20/20 Unknown History 5/325 mg] Active Meds: Active Medications Citric Acid/Sodium Citrate (Bicitra Oral Liqd 30ml) 30 ml PO ONCE ERINN Stop: 10/03/20 16:08 Famotidine (Famotidine 20 Mg/2 Ml Inj) 20 mg IV ONCE ERINN Stop: 10/03/20 16:08 Lactated Ringer's (Lactated Ringers) 1,000 mls @ 2,250 mls/hr IV PREOP ERINN Stop: 10/03/20 16:42 Last Admin: 10/03/20 10:54 Dose: 2,250 mls/hr Documented by: Oxytocin/Sodium Chloride (Pitocin/Ns 30 Unit/500ml) 30 units in 500 mls @ 0 mls/hr IV TITR ERINN; Protocol Cefazolin Sodium (Ancef/Sterile Water 2 Gm/20 Ml) 2 gm in 20 mls @ 80 mls/hr IV PREOP NR; Protocol Stop: 10/03/20 16:59 Vasopressin 20 unit/ Sodium (Chloride) 101 mls @ 9.09 mls/hr IV TITR ERINN Last Admin: 10/03/20 08:45 Dose: 0.03 units/min, 9.09 mls/hr Documented by: Sodium Bicarbonate 75 meq/ (Dextrose) 1,075 mls @ 250 mls/hr IV DIRECT ERINN Last Admin: 10/03/20 09:58 Dose: 250 mls/hr Documented by: Phenylephrine HCl 100 mg/ (Sodium Chloride) 100 mls @ 3 mls/hr IV TITR ERINN; Protocol Last Admin: 10/03/20 08:35 Dose: 380 mcg/min, 22.8 mls/hr Documented by: Sodium Chloride (Nacl 0.9% 500 Ml) 500 mls @ 0 mls/hr IV ONCE ERINN Last Admin: 10/02/20 16:30 Dose: 100 mls/hr Documented by: Epinephrine 8 mg/ Sodium (Chloride) 250 mls @ 3.75 mls/hr IV TITR ERINN; Protocol Last Admin: 10/03/20 08:36 Dose: 10 mcg/min, 18.75 mls/hr Documented by: Lactated Ringer's (Lactated Ringers) 1,000 mls @ 999 mls/hr IV DIRECT ERINN Stop: 10/07/20 19:46 Last Admin: 10/03/20 06:41 Dose: 999 mls/hr Documented by: Sodium Chloride (Nacl 0.9% 500 Ml) 500 mls @ 0 mls/hr IV ONCE ERINN Norepinephrine 8 mg/ Sodium (Chloride) 250 mls @ 3.75 mls/hr IV TITR ERINN; Protocol Last Admin: 10/03/20 09:57 Dose: 30 mcg/min, 56.25 mls/hr Documented by: Lactated Ringer's (Lactated Ringers) 1,000 mls @ 999 mls/hr IV BOLUS ONE Stop: 10/03/20 12:48 Lactated Ringer's (Lactated Ringers) 1,000 mls @ 999 mls/hr IV BOLUS ONE Stop: 10/03/20 12:48 Lactated Ringer's (Lactated Ringers) 1,000 mls @ 999 mls/hr IV BOLUS ONE Stop: 10/03/20 12:48 Lactated Ringer's (Lactated Ringers) 1,000 mls @ 999 mls/hr IV BOLUS ONE Stop: 10/03/20 12:49 Cefepime HCl (Cefepime/Ns 1 Gm/100 Ml) 1 gm in 100 mls @ 200 mls/hr IV Q8H ERINN; Protocol Vancomycin HCl (Vancomycin/Ns 1 Gm/250 Ml) 1 gm in 250 mls @ 167.007 mls/hr IV ONCE ONE; Protocol Stop: 10/03/20 13:21 Lorazepam (Lorazepam 2 Mg/Ml Vial) 2 mg IV Q2H PRN PRN Reason: Seizures Metoclopramide HCl (Metoclopramide 10 Mg/2 Ml Inj) 10 mg IV ONCE ERINN Review of Systems ROS unobtainable: due to endotracheal tube, due to mental status Physical Examination Vital signs: Vital Signs Pulse Pulse Ox 75 98 10/02/20 11:36 10/02/20 11:36 General appearance: appears uncomfortable Eyes: non-icteric ENT: other (orally intubated and not sedated) Neck: other (large in cirumference) Ascultation: Bilateral: diminished breath sounds Percussion: Bilateral: not dull Cardiovascular: other (sinus tach) Gastrointestinal: other (post surgical changes with drain on the left side) Extremities: anasarca unable to assess Results - Laboratory Findings CBC and BMP: 10/03/20 11:20 10/03/20 09:00 ABG ABG pH 7.144 (7.320-7.450) L 10/03/20 03:59 POC ABG pCO2 54.4 mmHg (32.0-48.0) H 10/03/20 03:59 ABG pCO2 50.0 mm Hg 10/02/20 22:30 POC ABG pO2 95.6 mmHg (83-108) 10/03/20 03:59 ABG pO2 183.0 mm Hg (80.0-90.0) H 10/02/20 22:30 POC ABG HCO3 18.3 10/03/20 03:59 ABG O2 Saturation 98.8 % (95.0-99.0) 10/02/20 22:30 PT/INR, D-dimer PT 61.1 Sec. (12.2-14.9) H 10/02/20 Unknown INR 6.92 (0.87-1.13) H* 10/02/20 Unknown D-Dimer > 66787 ng/mlDDU (0-234) H 10/02/20 Unknown Abnormal lab findings: Abnormal Labs 10/02/20 10/02/20 10/02/20 12:03 12:18 12:18 WBC 14.9 H RBC Hgb 9.1 L Hct MCV MCH 22 L MCHC 28 L RDW 17.6 H Plt Count 102 L Seg Neuts % (Manual) 36.0 L Lymphocytes % (Manual) 49.0 H Monocytes % (Manual) Nucleated RBC % 6.0 H Seg Neutrophils # Man Lymphocytes # (Manual) 7.3 H Monocytes # (Manual) PT INR APTT Fibrinogen D-Dimer ABG pH POC ABG pCO2 ABG pO2 ABG HCO3 ABG Base Excess ABG Hemoglobin ABG Chloride ABG Glucose VBG pH Oxyhemoglobin Sodium 134 L Carbon Dioxide 12 L BUN 6 L Creatinine Glucose 390 H POC Glucose 451 H Lactic Acid Calcium AST 135 H ALT 85 H Alkaline Phosphatase 172 H Lactate Dehydrogenase 641 H Total Protein 5.4 L Albumin 2.3 L Arterial Blood Glucose Arterial Blood Ionized Calcium Crossmatch 10/02/20 10/02/20 10/02/20 12:50 13:05 13:05 WBC 38.6 H RBC Hgb 8.9 L Hct 29.0 L MCV 73 L MCH 22 L MCHC RDW 17.2 H Plt Count Seg Neuts % (Manual) Lymphocytes % (Manual) Monocytes % (Manual) Nucleated RBC % 2.0 H Seg Neutrophils # Man 20.1 H Lymphocytes # (Manual) 10.4 H Monocytes # (Manual) 2.3 H PT INR APTT Fibrinogen D-Dimer ABG pH POC ABG pCO2 ABG pO2 ABG HCO3 ABG Base Excess ABG Hemoglobin ABG Chloride ABG Glucose VBG pH Oxyhemoglobin Sodium Carbon Dioxide BUN Creatinine Glucose POC Glucose Lactic Acid Calcium AST 184 H ALT 113 H Alkaline Phosphatase Lactate Dehydrogenase 769 H Total Protein Albumin Arterial Blood Glucose Arterial Blood Ionized Calcium Crossmatch See Detail 10/02/20 10/02/20 10/02/20 16:25 16:35 16:35 WBC RBC Hgb Hct MCV MCH MCHC RDW Plt Count Seg Neuts % (Manual) Lymphocytes % (Manual) Monocytes % (Manual) Nucleated RBC % Seg Neutrophils # Man Lymphocytes # (Manual) Monocytes # (Manual) PT INR APTT Fibrinogen D-Dimer ABG pH 7.031 L* POC ABG pCO2 ABG pO2 116.8 H ABG HCO3 12.7 L ABG Base Excess -16.9 L ABG Hemoglobin 7.8 L ABG Chloride ABG Glucose VBG pH Oxyhemoglobin 94.9 L Sodium Carbon Dioxide BUN Creatinine Glucose 403 H POC Glucose Lactic Acid 11.40 H* Calcium 6.3 L D AST 70 H ALT Alkaline Phosphatase Lactate Dehydrogenase Total Protein 1.9 L D Albumin 1.2 L Arterial Blood Glucose Arterial Blood Ionized Calcium Crossmatch 10/02/20 10/02/20 10/02/20 18:18 18:18 22:30 WBC 11.5 H RBC 2.06 L Hgb 5.5 L* D Hct 17.3 L* D MCV MCH 27 L MCHC RDW 19.5 H Plt Count 60 L Seg Neuts % (Manual) Lymphocytes % (Manual) 8.0 L Monocytes % (Manual) 8.0 H Nucleated RBC % 8.0 H Seg Neutrophils # Man Lymphocytes # (Manual) 0.9 L Monocytes # (Manual) 0.9 H PT 37.1 H INR 3.71 H APTT 135.8 H* Fibrinogen D-Dimer ABG pH 7.067 L* POC ABG pCO2 ABG pO2 183.0 H ABG HCO3 14.1 L ABG Base Excess -15.1 L ABG Hemoglobin 7.7 L ABG Chloride ABG Glucose VBG pH Oxyhemoglobin Sodium Carbon Dioxide BUN Creatinine Glucose POC Glucose Lactic Acid Calcium AST ALT Alkaline Phosphatase Lactate Dehydrogenase Total Protein Albumin Arterial Blood Glucose Arterial Blood Ionized Calcium Crossmatch 10/02/20 10/02/20 10/03/20 Unknown Unknown 00:01 WBC RBC Hgb Hct MCV MCH MCHC RDW Plt Count Seg Neuts % (Manual) Lymphocytes % (Manual) Monocytes % (Manual) Nucleated RBC % Seg Neutrophils # Man Lymphocytes # (Manual) Monocytes # (Manual) PT 61.1 H INR 6.92 H* APTT 158.7 H* Fibrinogen < 60 L* D-Dimer > 13832 H ABG pH POC ABG pCO2 ABG pO2 ABG HCO3 ABG Base Excess ABG Hemoglobin ABG Chloride ABG Glucose VBG pH 6.949 L* Oxyhemoglobin Sodium Carbon Dioxide BUN Creatinine Glucose POC Glucose 196 H Lactic Acid Calcium AST ALT Alkaline Phosphatase Lactate Dehydrogenase Total Protein Albumin Arterial Blood Glucose Arterial Blood Ionized Calcium Crossmatch 10/03/20 10/03/20 10/03/20 02:08 02:08 02:08 WBC 17.6 H RBC 3.27 L Hgb 9.9 L D Hct 29.9 L D MCV MCH MCHC RDW 16.5 H Plt Count 75 L Seg Neuts % (Manual) 76.0 H Lymphocytes % (Manual) Monocytes % (Manual) Nucleated RBC % 8.0 H Seg Neutrophils # Man 13.4 H Lymphocytes # (Manual) Monocytes # (Manual) PT INR APTT Fibrinogen D-Dimer ABG pH POC ABG pCO2 ABG pO2 ABG HCO3 ABG Base Excess ABG Hemoglobin ABG Chloride ABG Glucose VBG pH Oxyhemoglobin Sodium Carbon Dioxide 19 L BUN Creatinine 1.4 H D Glucose 306 H POC Glucose Lactic Acid 10.50 H* Calcium 6.4 L AST ALT Alkaline Phosphatase Lactate Dehydrogenase Total Protein Albumin Arterial Blood Glucose Arterial Blood Ionized Calcium Crossmatch 10/03/20 10/03/20 10/03/20 02:42 03:59 05:31 WBC RBC Hgb Hct MCV MCH MCHC RDW Plt Count Seg Neuts % (Manual) Lymphocytes % (Manual) Monocytes % (Manual) Nucleated RBC % Seg Neutrophils # Man Lymphocytes # (Manual) Monocytes # (Manual) PT INR APTT Fibrinogen D-Dimer ABG pH 7.144 L POC ABG pCO2 54.4 H ABG pO2 ABG HCO3 ABG Base Excess ABG Hemoglobin 10.0 L ABG Chloride 108.0 H ABG Glucose 306 H VBG pH Oxyhemoglobin Sodium Carbon Dioxide BUN Creatinine Glucose POC Glucose 209 H Lactic Acid 9.20 H* Calcium AST ALT Alkaline Phosphatase Lactate Dehydrogenase Total Protein Albumin Arterial Blood Glucose 306 H Arterial Blood Ionized Calcium 3.7 L Crossmatch 10/03/20 10/03/20 10/03/20 09:00 09:00 09:00 WBC 27.4 H RBC 2.84 L Hgb 8.5 L Hct 25.1 L MCV MCH MCHC RDW 16.1 H Plt Count 72 L Seg Neuts % (Manual) Lymphocytes % (Manual) Monocytes % (Manual) Nucleated RBC % Seg Neutrophils # Man Lymphocytes # (Manual) Monocytes # (Manual) PT INR APTT Fibrinogen D-Dimer ABG pH POC ABG pCO2 ABG pO2 ABG HCO3 ABG Base Excess ABG Hemoglobin ABG Chloride ABG Glucose VBG pH Oxyhemoglobin Sodium Carbon Dioxide BUN Creatinine 1.7 H Glucose 216 H POC Glucose Lactic Acid 9.20 H* Calcium 6.3 L AST 331 H ALT 171 H Alkaline Phosphatase Lactate Dehydrogenase Total Protein 3.7 L D Albumin 1.9 L Arterial Blood Glucose Arterial Blood Ionized Calcium Crossmatch 10/03/20 10/03/20 11:20 11:46 WBC 28.7 H RBC 2.67 L Hgb 8.0 L Hct 23.7 L MCV MCH MCHC RDW 16.6 H Plt Count 76 L Seg Neuts % (Manual) Lymphocytes % (Manual) Monocytes % (Manual) Nucleated RBC % Seg Neutrophils # Man Lymphocytes # (Manual) Monocytes # (Manual) PT INR APTT Fibrinogen D-Dimer ABG pH POC ABG pCO2 ABG pO2 ABG HCO3 ABG Base Excess ABG Hemoglobin ABG Chloride ABG Glucose VBG pH Oxyhemoglobin Sodium Carbon Dioxide BUN Creatinine Glucose POC Glucose 125 H Lactic Acid Calcium AST ALT Alkaline Phosphatase Lactate Dehydrogenase Total Protein Albumin Arterial Blood Glucose Arterial Blood Ionized Calcium Crossmatch Assessment and Plan 30 y/o female with Eclampsia, s/p emergent section with DIC, acute respiratory failure and worsening renal function. 1. CV-Extremely volume deplete as well as intrasvascular depletion. Will continue to bolus with LR and saline as needed. Will add Albumin to help with intravascular volume. Spoke with OB attending over phone yesterday. No acute indication for steroids at this time. Serial H/H's given maximum pressor requirements. Will transfuse to keep up with AVINASH drain and help with weaning. Severely acidotic but improving. Likely adding to pressor requirement. GOAL is map of 65 and will wean accordingly. Will start to wean Sohail first. Ordered art line as well. 2. Heme-DIC secondary to Eclampsia, possible sepsis but white count could be stress related. Will continue to transfuse PRBC's and FFP with Cryo as needed. Follow Fibrinogen levels. Tele Heme has been consulted and note reviewed. Will give one cryo for every 6 units of PRBC's transfused. has gotten one cryo, awaiting the other to thaw out. Plts at 72K right now. Hold on further transfusion. May need to consider Factor VII if execessive bleeding continues. Will also put on broad spec abx therapy incase of possible sepsis causing DIC. Hopeful with correction of coaguloapthy she will improve. 3. Very very guarded prognosis. Will continue aggressive resuscitation. Family to come visit given exceptional case and extremely guarded prognosis. CCT 31 minutes.
[2020-10-03] MEDS: CEFEPIME/NS 1 GM/100 ML 1 GM/100 ML BAG IV SCH ×2 (12:34→22:13)
[2020-10-03 12:39] LABS: Total Cells Counted 100
[2020-10-03 12:41] LABS: Large Platelets Few; Platelet Estimate Consistent w Auto; Tear Drop Cells Few
[2020-10-03] MEDS: VANCOMYCIN 2,000 MG in SODIUM CHLORIDE 0.9% 500 ML 500 ML IV SCH (13:01)
[2020-10-03] MEDS: ALBUMIN HUMAN 25% (25 GM/100 ML) INJ IV SCH ×2 (13:18→23:02)
--- NOTE | 2020-10-03 13:26 | Progress Note ---
Assessment and Plan Assessment and plan: 30 year old -M[place] female CHE 10/25/20 at 36w5d who presents with seizures in triage. Pt is not able to provide history but per pt's , she presented to the hospital to return a 24 hour urine specimen for analysis. She then suddenly reported that she did not feel good. She was taken to labor and delivery and shortly after arrival, she began seizing. During this time, a code met was called because the patient became hypoxic. She was then noted to be without a pulse. Chest compressions were started immediately, and the patient was emergently taken to the operating room for delivery of the fetus. This patient has had care at [facility] with comanagement by [facility] since 11 wks complicated by ADHD, morbid obesity, generalized anxiety disorder, panic attacks, chronic narcotic use, fibromyalgia, GERD, Irritable Bowel Syndrome, Migraines, h/o endometrial ablation and ovarian vein embolization, genital herpes, insomnia, LGA fetus, nausea and vomiting, polyh ydramnios, quad screen positive for Down's Syndrome, and previous x 3. She is GBS negative. 11:30: Pt brought to L&D triage for evaluation of possible labor. Pt accompanied by her spouse. Pt spouse poor historian; unable to obtain history, allergies at this time. Pt taken from registration to triage area via WC. Pt unresponsive, actively seizing with snorous respirations. electrical high tension tester, Kassy, called and requesting assistance. 11:35: Multiple staff at bedside. Pt 02 sat 67% on nonrebreather, unable to read BP at this time. Yifan Theodore CRNA, at bedside for intubation and assistance wi th IV insertion. INT attempt by multiple RNs unsuccessful at this time. 11:42: Pt being bagged by KORIN, 02% 79%. No pulse palpated, compressions started at this time; bharati young called and Dr. Newberry preparing OR for emergent c/s. 11:44: Continued compressions on stretcher while transporting pt to OR 1. Pt being bagged with jaw thrust manuever in place by KORIN Stringer student. 11:45: Arrival to OR 1. Dr. Newberry and Dr. Portillo present for emergent c/s. Code team arrived for continued care. patient revived and c/s done Patient has been bleeding from C/s site Patient transfused multiple units of PRBC Patient in DIC. Transferred to the ICU 10/03. Patient seen and examined at bedside this morning. Patient is nonresponsive and mechanically ventilated. On pressors. Labs reviewed-has le ukocytosis, anemia, thrombocytopenia, ADOLPH and lactic acidosis. Started on IV antibiotics to cover possible sepsis secondary to DIC. Hematology oncology recommendations appreciated-needs additional cryoprecipitate and FFP. Monitor D-dimer, fibrinogen and frequent labs. Nephrology consulted for lactic acidosis and ADOLPH. Assessment/Plan --Acute respiratory failure with hypoxia Current Visit: Yes Status: Acute Plan to address problem: Patient intubated Vent management --DIC (disseminated intravascular coagulation) vs HELLP syndrome Current Visit: Yes Status: Acute Plan to address problem: Has anemia,thrombocytopenia and elevated liver enzymes Patient received multiple units of RBCs, FFP's Cryoprecipitate ordered Hematology oncology recommendations appreciated Continue to trend fibrinogen. Repeat INR Critical care on board --Cardiac arrest Current Visit: Yes Status: Acute Plan to address problem: ACLS protocol followed by revival Check echo --Shock Current Visit: Yes Status: Acute Plan to address problem: Now on multiple pressors Likely hypovolemic. Started on empirical antibiotics for possible sepsis. Continue to monitor blood pressure closely Trend H&H and transfuse as needed --Lactic acidosis Current Visit: Yes Status: Acute Plan to address problem: As a result of poor organ perfusion and possible sepsis Continue IV hydration Nephrology consulted --ADOLPH Current Visit: Yes Status: Acute Plan to address problem: As a result of hypoperfusion and shock Continue IV hydration Nephrology consulted Avoid nephrotoxic medications Check ultrasound renal, urine electrolytes DVT prophylaxis Current Visit: Yes Status: Acute Plan to address problem: Patient in DIC No anticoagulants Poor prognosis History Interval history: Patient seen and examined at bedside Intubated Unconscious Hospitalist Physical - Physical exam Narrative exam: VITAL SIGNS: Reviewed. GENERAL: Intubated HEAD: No signs of head trauma. EYES: Pupils are equal. MOUTH: OT in place NECK: No adenopathy, no JVD. CHEST: Rales posteriorly CARDIAC: normal S1 and S2, without murmurs, gallops, or rubs. ABDOMEN: Soft, non tender and non distended. No rebound or guarding, and no masses palpated. Bowel Sounds normal. AVINASH drain intact with bloody fluid MUSCULOSKELETAL: No edema NEUROLOGIC EXAM: Intubated SKIN: No obvious lesions - Constitutional Vitals: Temp Pulse Resp BP Pulse Ox 99.9 F H 109 H 33 H 133/71 94 10/03/20 12:00 10/03/20 12:15 10/03/20 12:15 10/03/20 12:15 10/03/20 12:15 HEART Score - HEART Score Age: < 45 Risk factors: 1-2 risk factors - Critical Actions Critical Actions: >7 pts:50-65% risk of adverse cardiac event. Early invasive measures Results - Labs CBC & Chem 7: 10/03/20 11:20 10/03/20 09:00 Labs: Laboratory Last Values WBC 28.7 K/mm3 (4.5-11.0) H 10/03/20 11:20 RBC 2.67 M/mm3 (3.65-5.03) L 10/03/20 11:20 Hgb 8.0 gm/dl (10.1-14.3) L 10/03/20 11:20 Hct 23.7 % (30.3-42.9) L 10/03/20 11:20 MCV 89 fl (79-97) 10/03/20 11:20 MCH 30 pg (28-32) 10/03/20 11:20 MCHC 34 % (30-34) 10/03/20 11:20 RDW 16.6 % (13.2-15.2) H 10/03/20 11:20 Plt Count 76 K/mm3 (140-440) L 10/03/20 11:20 Lymph # (Auto) Engineering Test Mechanic 10/02/20 13:05 Add Manual Diff Complete 10/03/20 09:00 Total Counted 100 10/03/20 09:00 Seg Neuts % (Manual) 67.0 % (40.0-70.0) 10/03/20 09:00 Band Neutrophils % 11.0 % 10/03/20 09:00 Lymphocytes % (Manual) 11.0 % (13.4-35.0) L 10/03/20 09:00 Reactive Lymphs % (Man) 1.0 % 10/02/20 12:18 Monocytes % (Manual) 7.0 % (0.0-7.3) 10/03/20 09:00 Metamyelocytes % 4.0 % 10/03/20 09:00 Myelocytes % 2.0 % 10/02/20 13:05 Nucleated RBC % 3.0 % (0.0-0.9) H 10/03/20 09:00 Seg Neutrophils # Man 18.4 K/mm3 (1.8-7.7) H 10/03/20 09:00 Band Neutrophils # 3.0 K/mm3 10/03/20 09:00 Lymphocytes # (Manual) 3.0 K/mm3 (1.2-5.4) 10/03/20 09:00 Abs React Lymphs (Man) 0.0 K/mm3 10/03/20 09:00 Monocytes # (Manual) 1.9 K/mm3 (0.0-0.8) H 10/03/20 09:00 Eosinophils # (Manual) 0.0 K/mm3 (0.0-0.4) 10/03/20 09:00 Basophils # (Manual) 0.0 K/mm3 (0.0-0.1) 10/03/20 09:00 Metamyelocytes # 1.1 K/mm3 10/03/20 09:00 Myelocytes # 0.0 K/mm3 10/03/20 09:00 Promyelocytes # 0.0 K/mm3 10/03/20 09:00 Blast Cells # 0.0 K/mm3 10/03/20 09:00 WBC Morphology Not Reportable 10/03/20 09:00 WBC Morphology TNR 10/03/20 09:00 Hypersegmented Neuts Not Reportable 10/03/20 09:00 Hyposegmented Neuts Not Reportable 10/03/20 09:00 Hypogranular Neuts Not Reportable 10/03/20 09:00 Smudge Cells Not Reportable 10/03/20 09:00 Toxic Granulation Not Reportable 10/03/20 09:00 Toxic Vacuolation Not Reportable 10/03/20 09:00 Dohle Bodies Not Reportable 10/03/20 09:00 Pelger-Huet Anomaly Not Reportable 10/03/20 09:00 Ester Rods Not Reportable 10/03/20 09:00 Platelet Estimate Consistent w auto 10/03/20 09:00 Clumped Platelets Not Reportable 10/03/20 09:00 Plt Clumps, EDTA Not Reportable 10/03/20 09:00 Large Platelets Few 10/03/20 09:00 Giant Platelets Not Reportable 10/03/20 09:00 Platelet Satelliting Not Reportable 10/03/20 09:00 Plt Morphology Comment Not Reportable 10/03/20 09:00 RBC Morphology Not Reportable 10/03/20 09:00 Dimorphic RBCs Not Reportable 10/03/20 09:00 Polychromasia Few 10/03/20 09:00 Hypochromasia Not Reportable 10/03/20 09:00 Poikilocytosis Not Reportable 10/03/20 09:00 Anisocytosis Not Reportable 10/03/20 09:00 Microcytosis Not Reportable 10/03/20 09:00 Macrocytosis Not Reportable 10/03/20 09:00 Spherocytes Not Reportable 10/03/20 09:00 Pappenheimer Bodies Not Reportable 10/03/20 09:00 Sickle Cells Not Reportable 10/03/20 09:00 Target Cells Not Reportable 10/03/20 09:00 Tear Drop Cells Few 10/03/20 09:00 Ovalocytes Not Reportable 10/03/20 09:00 Helmet Cells Not Reportable 10/03/20 09:00 [place] Bodies Not Reportable 10/03/20 09:00 Roundup Rings Not Reportable 10/03/20 09:00 [place] Cells Not Reportable 10/03/20 09:00 Bite Cells Not Reportable 10/03/20 09:00 Crenated Cell Not Reportable 10/03/20 09:00 Elliptocytes Few 10/03/20 09:00 Acanthocytes (Spur) Not Reportable 10/03/20 09:00 Rouleaux Not Reportable 10/03/20 09:00 Hemoglobin C Crystals Not Reportable 10/03/20 09:00 Schistocytes Not Reportable 10/03/20 09:00 Malaria parasites Not Reportable 10/03/20 09:00 Sharad Bodies Not Reportable 10/03/20 09:00 Hem Pathologist Commnt No 10/03/20 09:00 PT 61.1 Sec. (12.2-14.9) H 10/02/20 Unknown INR 6.92 (0.87-1.13) H* 10/02/20 Unknown APTT 158.7 Sec. (24.2-36.6) H* 10/02/20 Unknown Fibrinogen < 60 mg/dl (211-480) L* 10/02/20 Unknown D-Dimer > 76633 ng/mlDDU (0-234) H 10/02/20 Unknown ABG pH 7.244 pH Units (7.350-7.450) L 10/03/20 11:50 POC ABG pCO2 54.4 mmHg (32.0-48.0) H 10/03/20 03:59 ABG pCO2 53.6 mm Hg 10/03/20 11:50 POC ABG pO2 95.6 mmHg (83-108) 10/03/20 03:59 ABG pO2 89.3 mm Hg (80.0-90.0) 10/03/20 11:50 POC ABG HCO3 18.3 10/03/20 03:59 ABG HCO3 22.7 mmol/L (20.0-26.0) 10/03/20 11:50 ABG O2 Saturation 96.7 % (95.0-99.0) 10/03/20 11:50 ABG O2 Content 10.0 (0.0-44) 10/03/20 11:50 POC ABG Base Excess -10.5 10/03/20 03:59 ABG Base Excess -4.5 mmol/L (-2.0-3.0) L 10/03/20 11:50 ABG Hemoglobin 7.3 gm/dl (12.0-16.0) L 10/03/20 11:50 ABG Carboxyhemoglobin 1.0 % (0.0-5.0) 10/03/20 11:50 ABG Methemoglobin 0.6 % (0.0-1.5) 10/03/20 11:50 ABG Sodium 137.9 mmol/L (136.0-145.0) 10/03/20 03:59 ABG Potassium 3.8 mmol/L (3.40-4.50) 10/03/20 03:59 ABG Chloride 108.0 mmol/L (98-107) H 10/03/20 03:59 ABG Glucose 306 mg/dL (65-95) H 10/03/20 03:59 VBG pH 6.949 (7.320-7.420) L* 10/02/20 Unknown Oxyhemoglobin 95.2 % (95.0-99.0) 10/03/20 11:50 FiO2 100 % 10/03/20 11:50 Sodium 143 mmol/L (137-145) 10/03/20 09:00 Potassium 3.9 mmol/L (3.6-5.0) 10/03/20 09:00 Chloride 106.9 mmol/L (98-107) 10/03/20 09:00 Carbon Dioxide 25 mmol/L (22-30) 10/03/20 09:00 Anion Gap 15 mmol/L 10/03/20 09:00 BUN 15 mg/dL (7-17) 10/03/20 09:00 Creatinine 1.7 mg/dL (0.6-1.2) H 10/03/20 09:00 Estimated GFR 42 ml/min 10/03/20 09:00 BUN/Creatinine Ratio 9 % 10/03/20 09:00 Glucose 216 mg/dL (65-100) H 10/03/20 09:00 POC Glucose 125 mg/dL (70-105) H 10/03/20 11:46 Lactic Acid 8.00 mmol/L (0.7-2.0) H* 10/03/20 11:50 Uric Acid 7.5 mg/dL (3.5-7.6) 10/02/20 13:05 Calcium 6.3 mg/dL (8.4-10.2) L 10/03/20 09:00 Total Bilirubin 0.50 mg/dL (0.1-1.2) 10/03/20 09:00 AST 331 units/L (5-40) H 10/03/20 09:00 ALT 171 units/L (7-56) H 10/03/20 09:00 Alkaline Phosphatase 83 units/L (35-129) 10/03/20 09:00 Lactate Dehydrogenase 769 units/L (91-180) H 10/02/20 13:05 Total Protein 3.7 g/dL (6.3-8.2) L D 10/03/20 09:00 Albumin 1.9 g/dL (3.9-5) L 10/03/20 09:00 Albumin/Globulin Ratio 1.1 % 10/03/20 09:00 Arterial Blood Glucose 306 mg/dL (65-95) H 10/03/20 03:59 Arterial Blood Ionized Calcium 3.7 mg/dL (4.6-5.3) L 10/03/20 03:59 Blood Type O POSITIVE 10/02/20 12:50 Antibody Screen Negative 10/02/20 12:50 Crossmatch See Detail 10/02/20 12:50 [place]/IV: Voiding Method Indwelling Catheter Active Medications - Current Medications Current Medications: Generic Name Dose Route Start Last Admin Trade Name Freq PRN Reason Stop Dose Admin Albumin Human 25 gm 10/03/20 14:00 10/03/20 13:18 Albumin Human 25% (25 Gm/100 Ml) Inj IV 25 gm Q8HR ERINN Administration Citric Acid/Sodium Citrate 30 ml 10/02/20 16:09 Bicitra Oral Liqd 30ml PO 10/03/20 16:08 ONCE ERINN Famotidine 20 mg 10/02/20 16:09 Famotidine 20 Mg/2 Ml Inj IV 10/03/20 16:08 ONCE ERINN Lactated Ringer's 1,000 mls @ 2,250 mls/hr 10/02/20 16:15 10/03/20 10:54 Lactated Ringers IV 10/03/20 16:42 2,250 mls/hr PREOP ERINN Administration Oxytocin/Sodium Chloride 30 units in 500 mls @ 0 mls/hr 10/02/20 17:00 Pitocin/Ns 30 Unit/500ml IV TITR ERINN Protocol As Directed Cefazolin Sodium 2 gm in 20 mls @ 80 mls/hr 10/02/20 17:00 Ancef/Sterile Water 2 Gm/20 Ml IV 10/03/20 16:59 PREOP NR Protocol Vasopressin 20 unit/ Sodium 101 mls @ 9.09 mls/hr 10/02/20 17:00 10/03/20 08:45 Chloride IV 0.03 units/min TITR ERINN 9.09 mls/hr Administration 0.03 UNITS/MIN Sodium Bicarbonate 75 meq/ 1,075 mls @ 250 mls/hr 10/02/20 17:00 10/03/20 09:58 Dextrose IV 250 mls/hr DIRECT ERINN Administration Phenylephrine HCl 100 mg/ 100 mls @ 3 mls/hr 10/02/20 16:30 10/03/20 08:35 Sodium Chloride IV 380 mcg/min TITR ERINN 22.8 mls/hr Administration Protocol 50 MCG/MIN Sodium Chloride 500 mls @ 0 mls/hr 10/02/20 16:27 10/02/20 16:30 Nacl 0.9% 500 Ml IV 10/03/20 16:26 100 mls/hr ONCE ERINN Administration As Directed Epinephrine 8 mg/ Sodium 250 mls @ 3.75 mls/hr 10/02/20 18:00 10/03/20 08:36 Chloride IV 10 mcg/min TITR ERINN 18.75 mls/hr Administration Protocol 2 MCG/MIN Lactated Ringer's 1,000 mls @ 999 mls/hr 10/02/20 18:45 10/03/20 06:41 Lactated Ringers IV 10/07/20 19:46 999 mls/hr DIRECT ERINN Administration Sodium Chloride 500 mls @ 0 mls/hr 10/02/20 19:02 Nacl 0.9% 500 Ml IV 10/03/20 19:01 ONCE ERINN As Directed Norepinephrine 8 mg/ Sodium 250 mls @ 3.75 mls/hr 10/03/20 01:00 10/03/20 12:56 Chloride IV 30 mcg/min TITR ERINN 56.25 mls/hr Administration Protocol 2 MCG/MIN Cefepime HCl 1 gm in 100 mls @ 200 mls/hr 10/03/20 13:00 10/03/20 12:34 Cefepime/Ns 1 Gm/100 Ml IV 200 mls/hr Q8H ERINN Administration Protocol Vancomycin HCl 2,000 mg/ 540 mls @ 250 mls/hr 10/03/20 12:30 10/03/20 13:01 Sodium Chloride IV 250 mls/hr Q24H ERINN Administration Lorazepam 2 mg 10/02/20 22:05 Lorazepam 2 Mg/Ml Vial IV Q2H PRN Seizures Metoclopramide HCl 10 mg 10/02/20 16:09 Metoclopramide 10 Mg/2 Ml Inj IV 10/03/20 16:08 ONCE ERINN
[2020-10-03] MEDS ORDERED: SODIUM CHLORIDE 0.9% 500 ML 500 ML IV NR (13:31)
--- NOTE | 2020-10-03 13:32 | Post Anesthesia Evaluation ---
- Post Anesthesia Evaluation Patient Participated: No Airway Patent: No (ET tube) Stable Respiratory Function: No Nausea/Vomiting: No Temp > 96.8F: Yes Pain Manageable: Yes Adequeate Hydration: No Anesthesia Complications: No Patient on Ventilator: Yes Other Comments: On multiple pressors being managed by ICU team.
--- NOTE | 2020-10-03 13:53 | Consultation ---
History of Present Illness - Reason for Consult Consult date: 10/03/20 acute renal failure - History of Present Illness History obtained from medical records. Mrs. Dimas is a 30yo who presented at 36w5d triage with seizures. Per , she presented to the hospital to return a 24 hour urine specimen and suddenly reported that she did not feel well. She was taken to labor and delivery, and shortly after arrival, she began seizing. A code MET was called as patient became hypoxic and subsequently pulses. Chest compressions were started immediately, and the patient was emergently taken to the operating room for delivery of the fetus. Follwing emergent section, copious vaginal bleeding was noted. She was given additional pitocin, hemabate, and misoprostol per rectum with little improvement in her bleeding and development of hemorrhage. Given uterine atony, hemorrhage, and DIC despite administration of multiple medications, the decision was made to proceed with hysterectomy. Estimated blood loss was appx 4 L per OR note She was transferred to the ICU following surgery. Patient remains intubated - FiO2 100%. She is On Vasopressin, Levophed and Epinephrine. Nephrology consultation for management of ADOLPH Past History Past Medical History: GERD, hypertension, seizures, other (IBD, MIGRAINES, An xiety, Genital Herpes, Obesity) Past Surgical History: Social history: , full code Family history: hypertension Medications and Allergies Allergies Allergy/AdvReac Type Severity Reaction Status Date / Time egg Allergy Severe Anaphylaxis Verified 05/22/20 16:09 NSAIDS (Non-Steroidal Allergy Severe Unknown Verified 05/22/20 16:09 Anti-Inflamma Sulfa (Sulfonamide Allergy Severe Anaphylaxis Verified 05/22/20 16:09 Antibiotics) ibuprofen Allergy Intermediate Bleeding Verified 05/22/20 16:09 latex Allergy Hives Verified 05/22/20 16:09 plecanatide [From Trulance] Allergy Anaphylaxis Verified 05/22/20 16:09 adhesive tape AdvReac Intermediate Unknown Verified 05/22/20 16:09 metoclopramide [From Reglan] AdvReac Unknown Verified 05/22/20 16:09 Home Medications Medication Instructions Recorded Confirmed Last Taken Type Pantoprazole [Protonix TAB] 20 mg PO DAILY 05/10/19 08/20/20 05/10/19 05:00 History busPIRone 15 mg PO DAILY 01/15/20 08/20/20 Unknown History Albuterol Sulfate [Proventil Hfa] 6.7 gm IH Q4HR PRN #1 hfa.aer.ad 04/07/20 08/20/20 Unknown Rx Topiramate (Nf) [Trokendi XR CAP] 100 mg PO DAILY 08/20/20 08/20/20 Unknown History oxyCODONE /ACETAMINOPHEN [Percocet 1 tab PO Q6HR 08/20/20 08/20/20 Unknown History 5/325 mg] Active Meds: Active Medications Albumin Human (Albumin Human 25% (25 Gm/100 Ml) Inj) 25 gm IV Q8HR ERINN Last Admin: 10/03/20 13:18 Dose: 25 gm Documented by: Citric Acid/Sodium Citrate (Bicitra Oral Liqd 30ml) 30 ml PO ONCE ERINN Stop: 10/03/20 16:08 Famotidine (Famotidine 20 Mg/2 Ml Inj) 20 mg IV ONCE ERINN Stop: 10/03/20 16:08 Lactated Ringer's (Lactated Ringers) 1,000 mls @ 2,250 mls/hr IV PREOP ERINN Stop: 10/03/20 16:42 Last Admin: 10/03/20 10:54 Dose: 2,250 mls/hr Documented by: Oxytocin/Sodium Chloride (Pitocin/Ns 30 Unit/500ml) 30 units in 500 mls @ 0 mls/hr IV TITR ERINN; Protocol Cefazolin Sodium (Ancef/Sterile Water 2 Gm/20 Ml) 2 gm in 20 mls @ 80 mls/hr IV PREOP NR; Protocol Stop: 10/03/20 16:59 Vasopressin 20 unit/ Sodium (Chloride) 101 mls @ 9.09 mls/hr IV TITR ERINN Last Admin: 10/03/20 08:45 Dose: 0.03 units/min, 9.09 mls/hr Documented by: Sodium Bicarbonate 75 meq/ (Dextrose) 1,075 mls @ 250 mls/hr IV DIRECT ERINN Last Admin: 10/03/20 09:58 Dose: 250 mls/hr Documented by: Phenylephrine HCl 100 mg/ (Sodium Chloride) 100 mls @ 3 mls/hr IV TITR ERINN; Protocol Last Admin: 10/03/20 08:35 Dose: 380 mcg/min, 22.8 mls/hr Documented by: Sodium Chloride (Nacl 0.9% 500 Ml) 500 mls @ 0 mls/hr IV ONCE ERINN Stop: 10/03/20 16:26 Last Admin: 10/02/20 16:30 Dose: 100 mls/hr Documented by: Epinephrine 8 mg/ Sodium (Chloride) 250 mls @ 3.75 mls/hr IV TITR ERINN; Protocol Last Admin: 10/03/20 08:36 Dose: 10 mcg/min, 18.75 mls/hr Documented by: Lactated Ringer's (Lactated Ringers) 1,000 mls @ 999 mls/hr IV DIRECT ERINN Stop: 10/07/20 19:46 Last Admin: 10/03/20 06:41 Dose: 999 mls/hr Documented by: Sodium Chloride (Nacl 0.9% 500 Ml) 500 mls @ 0 mls/hr IV ONCE ERINN Stop: 10/03/20 19:01 Norepinephrine 8 mg/ Sodium (Chloride) 250 mls @ 3.75 mls/hr IV TITR ERINN; Protocol Last Admin: 10/03/20 12:56 Dose: 30 mcg/min, 56.25 mls/hr Documented by: Cefepime HCl (Cefepime/Ns 1 Gm/100 Ml) 1 gm in 100 mls @ 200 mls/hr IV Q8H ERINN; Protocol Last Admin: 10/03/20 12:34 Dose: 200 mls/hr Documented by: Vancomycin HCl 2,000 mg/ (Sodium Chloride) 540 mls @ 250 mls/hr IV Q24H ERINN Last Admin: 10/03/20 13:01 Dose: 250 mls/hr Documented by: Sodium Chloride (Nacl 0.9% 500 Ml) 500 mls @ 0 mls/hr IV ONCE NR Stop: 10/03/20 23:59 Calcium Gluconate 1,000 mg/ (Sodium Chloride) 110 mls @ 660 mls/hr IV ONCE ONE Stop: 10/03/20 14:09 Lorazepam (Lorazepam 2 Mg/Ml Vial) 2 mg IV Q2H PRN PRN Reason: Seizures Metoclopramide HCl (Metoclopramide 10 Mg/2 Ml Inj) 10 mg IV ONCE ERINN Stop: 10/03/20 16:08 Review of Systems ROS unobtainable: due to endotracheal tube Exam - Vital Signs Vital signs: Vital Signs Pulse Pulse Ox 75 98 10/02/20 11:36 10/02/20 11:36 - General Appearance General appearance: well-developed, well-nourished, intubated EENT: ATNC, other (ETT in place) Respiratory: Clear to Ascultation Heart: regular, tachycardia, S1S2 Gastrointestinal: Present: hypoactive bowel sounds Integumentary: no rash, warm and dry Musculoskeletal: Present: other (No edema) Results - Lab Results 10/03/20 11:20 10/03/20 09:00 Most recent lab results ABG pH 7.244 pH Units (7.350-7.450) L 10/03/20 11:50 ABG pCO2 53.6 mm Hg 10/03/20 11:50 ABG pO2 89.3 mm Hg (80.0-90.0) 10/03/20 11:50 ABG HCO3 22.7 mmol/L (20.0-26.0) 10/03/20 11:50 ABG O2 Saturation 96.7 % (95.0-99.0) 10/03/20 11:50 Calcium 6.3 mg/dL (8.4-10.2) L 10/03/20 09:00 Assessment and Plan Impression: * Oliguric acute kidney injury secondary to ischemic ATN * Cardiac arrest * Acute hypoxic respiratory failure * DIC * Anemia secondary to acute blood loss * hemorrhage * Mixed respiratory/metabolic acidosis * Presumed eclampsia Plan: * Presently, there is no emergent indication for renal replacement therapy. However, renal prognosis is guarded. She is maxed on 3 pressors currently. If patient's renal function deteriorates requring dialysis, CRRT would be the preferred modality given hemodynamic instablity. Will require transfer to a facility where CRRT is available * Continue volume resuscitation - LR boluses ongoing * Transfusion of blood products per primary team * Strict I/O * Vent management per pulmonary/CCM * Dose medications for renal function * Avoid potential nephrotoxins
[2020-10-03] MEDS ORDERED: CALCIUM GLUCONATE 1,000 MG in SODIUM CHLORIDE 0.9% 100 ML IV ONE (14:00)
[2020-10-03] MEDS: LORazepam 2 MG/ML VIAL IV PRN ×2 (15:03→21:03)
[2020-10-03] MEDS: fentaNYL 100 MCG/2 ML INJ IV PRN (15:25)
--- NOTE | 2020-10-03 22:48 | Progress Note ---
Assessment and Plan POD 1 with intubation after hysterectomy and due to eclampsia at term. Pt remains intubated and on max pressors at this time. Pt is still very sick. Pt is still making urine at this time. Will defer to Critical care team for management at this time. Subjective Date of service: 10/03/20 Principal diagnosis: Eclampsia, HELLP Syndrome, DIC Interval history: Pt presented yesterday to triage with seizures at term. Stat >>Hyster ectomy>>DIC>>Intubation>>CCU Objective - Exam Narrative Exam: intubated and obtunded - Constitutional Vitals: Vital Signs - 12hr 10/03/20 10/03/20 10/03/20 10:45 11:00 11:15 Temperature Pulse Rate 121 H 120 H 116 H Pulse Rate [ From Monitor] Respiratory 33 H 33 H 34 H Rate Blood Pressure 112/69 107/63 104/68 O2 Sat by Pulse 94 94 97 Oximetry 10/03/20 10/03/20 10/03/20 11:30 11:45 11:49 Temperature Pulse Rate 117 H 110 H 112 H Pulse Rate [ From Monitor] Respiratory 32 H 33 H Rate Blood Pressure 111/67 111/67 124/48 O2 Sat by Pulse 95 98 96 Oximetry 10/03/20 10/03/20 10/03/20 12:00 12:15 12:30 Temperature 99.9 F H Pulse Rate 111 H 109 H 112 H Pulse Rate [ 111 H From Monitor] Respiratory 32 H 33 H 33 H Rate Blood Pressure 121/71 133/71 130/56 O2 Sat by Pulse 93 94 92 Oximetry 10/03/20 10/03/20 10/03/20 12:45 13:00 13:15 Temperature Pulse Rate 107 H 121 H 115 H Pulse Rate [ From Monitor] Respiratory 34 H 32 H 32 H Rate Blood Pressure 127/66 118/66 110/56 O2 Sat by Pulse 93 93 93 Oximetry 10/03/20 10/03/20 10/03/20 13:30 13:45 14:01 Temperature Pulse Rate 116 H 116 H 112 H Pulse Rate [ From Monitor] Respiratory 33 H 33 H 35 H Rate Blood Pressure 130/74 120/59 117/58 O2 Sat by Pulse 95 95 80 L Oximetry 10/03/20 10/03/20 10/03/20 14:15 14:30 14:45 Temperature Pulse Rate 111 H 108 H 112 H Pulse Rate [ From Monitor] Respiratory 32 H 32 H 32 H Rate Blood Pressure 119/67 123/73 133/67 O2 Sat by Pulse 86 81 L 80 L Oximetry 10/03/20 10/03/20 10/03/20 15:00 15:15 15:30 Temperature Pulse Rate 117 H 113 H 117 H Pulse Rate [ From Monitor] Respiratory 31 H 31 H 31 H Rate Blood Pressure 114/60 130/62 130/63 O2 Sat by Pulse 88 88 78 L Oximetry 10/03/20 10/03/20 10/03/20 15:45 16:00 16:15 Temperature 98 F Pulse Rate 112 H 109 H 111 H Pulse Rate [ 109 H From Monitor] Respiratory 31 H 32 H 32 H Rate Blood Pressure 141/60 118/66 136/61 O2 Sat by Pulse 97 89 91 Oximetry 10/03/20 10/03/20 10/03/20 16:30 16:38 16:45 Temperature Pulse Rate 110 H 114 H 114 H Pulse Rate [ From Monitor] Respiratory 32 H 32 H Rate Blood Pressure 139/73 139/73 146/78 O2 Sat by Pulse 93 92 93 Oximetry 10/03/20 10/03/20 10/03/20 17:00 17:09 17:15 Temperature 98.4 F Pulse Rate 109 H 109 H Pulse Rate [ From Monitor] Respiratory 32 H 32 H Rate Blood Pressure 136/63 133/63 O2 Sat by Pulse 93 96 Oximetry 10/03/20 10/03/20 10/03/20 17:24 17:30 17:39 Temperature 98.4 F 98.7 F Pulse Rate 110 H Pulse Rate [ From Monitor] Respiratory 32 H Rate Blood Pressure 133/71 O2 Sat by Pulse 92 Oximetry 10/03/20 10/03/20 10/03/20 17:45 17:54 18:01 Temperature 98.6 F Pulse Rate 115 H 112 H Pulse Rate [ From Monitor] Respiratory 23 33 H Rate Blood Pressure 126/66 145/61 O2 Sat by Pulse 95 91 Oximetry 10/03/20 10/03/20 10/03/20 18:11 18:21 18:30 Temperature Pulse Rate 113 H 109 H 110 H Pulse Rate [ From Monitor] Respiratory 29 H 37 H 34 H Rate Blood Pressure 133/71 140/66 144/60 O2 Sat by Pulse 95 97 88 Oximetry 10/03/20 10/03/20 10/03/20 18:41 18:51 19:00 Temperature Pulse Rate 114 H 112 H 113 H Pulse Rate [ From Monitor] Respiratory 34 H 39 H 38 H Rate Blood Pressure 140/66 136/70 128/68 O2 Sat by Pulse 96 95 99 Oximetry 10/03/20 10/03/20 10/03/20 19:11 19:21 19:30 Temperature Pulse Rate 109 H 124 H 111 H Pulse Rate [ From Monitor] Respiratory 35 H 39 H 40 H Rate Blood Pressure 136/70 128/77 150/69 O2 Sat by Pulse 94 91 94 Oximetry 10/03/20 10/03/20 10/03/20 19:41 19:51 19:52 Temperature 99 F Pulse Rate 112 H 117 H 116 H Pulse Rate [ From Monitor] Respiratory 39 H 39 H 40 H Rate Blood Pressure 128/77 124/67 124/67 O2 Sat by Pulse 90 94 96 Oximetry 10/03/20 10/03/20 10/03/20 20:00 20:08 20:11 Temperature Pulse Rate 112 H 114 H 113 H Pulse Rate [ From Monitor] Respiratory 40 H 39 H Rate Blood Pressure 139/66 124/67 O2 Sat by Pulse 92 93 Oximetry 10/03/20 10/03/20 10/03/20 20:14 20:16 20:18 Temperature 99 F 99.4 F Pulse Rate 132 H 105 H Pulse Rate [ From Monitor] Respiratory 37 H Rate Blood Pressure 137/72 137/72 O2 Sat by Pulse 90 98 Oximetry 10/03/20 10/03/20 10/03/20 20:30 20:45 21:00 Temperature Pulse Rate 107 H 113 H 107 H Pulse Rate [ From Monitor] Respiratory 39 H 41 H 30 H Rate Blood Pressure 140/67 132/73 132/73 O2 Sat by Pulse 97 95 100 Oximetry 10/03/20 10/03/20 10/03/20 21:15 21:30 21:45 Temperature Pulse Rate 117 H 122 H 115 H Pulse Rate [ From Monitor] Respiratory 35 H 41 H 39 H Rate Blood Pressure 135/68 137/84 151/76 O2 Sat by Pulse 96 91 92 Oximetry 10/03/20 22:00 Temperature 99.9 F H Pulse Rate 116 H Pulse Rate [ From Monitor] Respiratory 41 H Rate Blood Pressure 142/72 O2 Sat by Pulse 91 Oximetry - Gastrointestinal General gastrointestinal: Present: other (Incision dressed and bloody secondary to oozing) - Genitourinary Female genitourinary: other (mild vaginal bleeding) - Labs CBC & Chem 7: 10/03/20 11:20 10/03/20 09:00 Labs: Abnormal lab results 10/02/20 10/02/20 10/02/20 Range/Units 12:50 18:18 22:30 WBC (4.5-11.0) K/mm3 RBC (3.65-5.03) M/mm3 Hgb (10.1-14.3) gm/dl Hct (30.3-42.9) % RDW (13.2-15.2) % Plt Count 60 L (140-440) K/mm3 Seg Neuts % (Manual) (40.0-70.0) % Lymphocytes % (Manual) 8.0 L (13.4-35.0) % Monocytes % (Manual) 8.0 H (0.0-7.3) % Nucleated RBC % 8.0 H (0.0-0.9) % Seg Neutrophils # Man (1.8-7.7) K/mm3 Lymphocytes # (Manual) 0.9 L (1.2-5.4) K/mm3 Monocytes # (Manual) 0.9 H (0.0-0.8) K/mm3 ABG pH 7.067 L* (7.350-7.450) pH Units POC ABG pCO2 (32.0-48.0) mmHg ABG pO2 183.0 H (80.0-90.0) mm Hg ABG HCO3 14.1 L (20.0-26.0) mmol/L ABG Base Excess -15.1 L (-2.0-3.0) mmol/L ABG Hemoglobin 7.7 L (12.0-16.0) gm/dl ABG Chloride (98-107) mmol/L ABG Glucose (65-95) mg/dL Carbon Dioxide (22-30) mmol/L Creatinine (0.6-1.2) mg/dL Glucose (65-100) mg/dL POC Glucose (70-105) mg/dL Lactic Acid (0.7-2.0) mmol/L Calcium (8.4-10.2) mg/dL AST (5-40) units/L ALT (7-56) units/L Total Protein (6.3-8.2) g/dL Albumin (3.9-5) g/dL Arterial Blood Glucose (65-95) mg/dL Arterial Blood Ionized Calcium (4.6-5.3) mg/dL Crossmatch See Detail 10/03/20 10/03/20 10/03/20 Range/Units 00:01 02:08 02:08 WBC 17.6 H (4.5-11.0) K/mm3 RBC 3.27 L (3.65-5.03) M/mm3 Hgb 9.9 L D (10.1-14.3) gm/dl Hct 29.9 L D (30.3-42.9) % RDW 16.5 H (13.2-15.2) % Plt Count 75 L (140-440) K/mm3 Seg Neuts % (Manual) 76.0 H (40.0-70.0) % Lymphocytes % (Manual) (13.4-35.0) % Monocytes % (Manual) (0.0-7.3) % Nucleated RBC % 8.0 H (0.0-0.9) % Seg Neutrophils # Man 13.4 H (1.8-7.7) K/mm3 Lymphocytes # (Manual) (1.2-5.4) K/mm3 Monocytes # (Manual) (0.0-0.8) K/mm3 ABG pH (7.350-7.450) pH Units POC ABG pCO2 (32.0-48.0) mmHg ABG pO2 (80.0-90.0) mm Hg ABG HCO3 (20.0-26.0) mmol/L ABG Base Excess (-2.0-3.0) mmol/L ABG Hemoglobin (12.0-16.0) gm/dl ABG Chloride (98-107) mmol/L ABG Glucose (65-95) mg/dL Carbon Dioxide (22-30) mmol/L Creatinine (0.6-1.2) mg/dL Glucose (65-100) mg/dL POC Glucose 196 H (70-105) mg/dL Lactic Acid 10.50 H* (0.7-2.0) mmol/L Calcium (8.4-10.2) mg/dL AST (5-40) units/L ALT (7-56) units/L Total Protein (6.3-8.2) g/dL Albumin (3.9-5) g/dL Arterial Blood Glucose (65-95) mg/dL Arterial Blood Ionized Calcium (4.6-5.3) mg/dL Crossmatch 10/03/20 10/03/20 10/03/20 Range/Units 02:08 02:42 03:59 WBC (4.5-11.0) K/mm3 RBC (3.65-5.03) M/mm3 Hgb (10.1-14.3) gm/dl Hct (30.3-42.9) % RDW (13.2-15.2) % Plt Count (140-440) K/mm3 Seg Neuts % (Manual) (40.0-70.0) % Lymphocytes % (Manual) (13.4-35.0) % Monocytes % (Manual) (0.0-7.3) % Nucleated RBC % (0.0-0.9) % Seg Neutrophils # Man (1.8-7.7) K/mm3 Lymphocytes # (Manual) (1.2-5.4) K/mm3 Monocytes # (Manual) (0.0-0.8) K/mm3 ABG pH 7.144 L (7.350-7.450) pH Units POC ABG pCO2 54.4 H (32.0-48.0) mmHg ABG pO2 (80.0-90.0) mm Hg ABG HCO3 (20.0-26.0) mmol/L ABG Base Excess (-2.0-3.0) mmol/L ABG Hemoglobin 10.0 L (12.0-16.0) gm/dl ABG Chloride 108.0 H (98-107) mmol/L ABG Glucose 306 H (65-95) mg/dL Carbon Dioxide 19 L (22-30) mmol/L Creatinine 1.4 H D (0.6-1.2) mg/dL Glucose 306 H (65-100) mg/dL POC Glucose (70-105) mg/dL Lactic Acid 9.20 H* (0.7-2.0) mmol/L Calcium 6.4 L (8.4-10.2) mg/dL AST (5-40) units/L ALT (7-56) units/L Total Protein (6.3-8.2) g/dL Albumin (3.9-5) g/dL Arterial Blood Glucose 306 H (65-95) mg/dL Arterial Blood Ionized Calcium 3.7 L (4.6-5.3) mg/dL Crossmatch 10/03/20 10/03/20 10/03/20 Range/Units 05:31 09:00 09:00 WBC 27.4 H (4.5-11.0) K/mm3 RBC 2.84 L (3.65-5.03) M/mm3 Hgb 8.5 L (10.1-14.3) gm/dl Hct 25.1 L (30.3-42.9) % RDW 16.1 H (13.2-15.2) % Plt Count 72 L (140-440) K/mm3 Seg Neuts % (Manual) (40.0-70.0) % Lymphocytes % (Manual) 11.0 L (13.4-35.0) % Monocytes % (Manual) (0.0-7.3) % Nucleated RBC % 3.0 H (0.0-0.9) % Seg Neutrophils # Man 18.4 H (1.8-7.7) K/mm3 Lymphocytes # (Manual) (1.2-5.4) K/mm3 Monocytes # (Manual) 1.9 H (0.0-0.8) K/mm3 ABG pH (7.350-7.450) pH Units POC ABG pCO2 (32.0-48.0) mmHg ABG pO2 (80.0-90.0) mm Hg ABG HCO3 (20.0-26.0) mmol/L ABG Base Excess (-2.0-3.0) mmol/L ABG Hemoglobin (12.0-16.0) gm/dl ABG Chloride (98-107) mmol/L ABG Glucose (65-95) mg/dL Carbon Dioxide (22-30) mmol/L Creatinine 1.7 H (0.6-1.2) mg/dL Glucose 216 H (65-100) mg/dL POC Glucose 209 H (70-105) mg/dL Lactic Acid (0.7-2.0) mmol/L Calcium 6.3 L (8.4-10.2) mg/dL AST 331 H (5-40) units/L ALT 171 H (7-56) units/L Total Protein 3.7 L D (6.3-8.2) g/dL Albumin 1.9 L (3.9-5) g/dL Arterial Blood Glucose (65-95) mg/dL Arterial Blood Ionized Calcium (4.6-5.3) mg/dL Crossmatch 10/03/20 10/03/20 10/03/20 Range/Units 09:00 11:20 11:46 WBC 28.7 H (4.5-11.0) K/mm3 RBC 2.67 L (3.65-5.03) M/mm3 Hgb 8.0 L (10.1-14.3) gm/dl Hct 23.7 L (30.3-42.9) % RDW 16.6 H (13.2-15.2) % Plt Count 76 L (140-440) K/mm3 Seg Neuts % (Manual) (40.0-70.0) % Lymphocytes % (Manual) (13.4-35.0) % Monocytes % (Manual) (0.0-7.3) % Nucleated RBC % (0.0-0.9) % Seg Neutrophils # Man (1.8-7.7) K/mm3 Lymphocytes # (Manual) (1.2-5.4) K/mm3 Monocytes # (Manual) (0.0-0.8) K/mm3 ABG pH (7.350-7.450) pH Units POC ABG pCO2 (32.0-48.0) mmHg ABG pO2 (80.0-90.0) mm Hg ABG HCO3 (20.0-26.0) mmol/L ABG Base Excess (-2.0-3.0) mmol/L ABG Hemoglobin (12.0-16.0) gm/dl ABG Chloride (98-107) mmol/L ABG Glucose (65-95) mg/dL Carbon Dioxide (22-30) mmol/L Creatinine (0.6-1.2) mg/dL Glucose (65-100) mg/dL POC Glucose 125 H (70-105) mg/dL Lactic Acid 9.20 H* (0.7-2.0) mmol/L Calcium (8.4-10.2) mg/dL AST (5-40) units/L ALT (7-56) units/L Total Protein (6.3-8.2) g/dL Albumin (3.9-5) g/dL Arterial Blood Glucose (65-95) mg/dL Arterial Blood Ionized Calcium (4.6-5.3) mg/dL Crossmatch 10/03/20 10/03/20 Range/Units 11:50 11:50 WBC (4.5-11.0) K/mm3 RBC (3.65-5.03) M/mm3 Hgb (10.1-14.3) gm/dl Hct (30.3-42.9) % RDW (13.2-15.2) % Plt Count (140-440) K/mm3 Seg Neuts % (Manual) (40.0-70.0) % Lymphocytes % (Manual) (13.4-35.0) % Monocytes % (Manual) (0.0-7.3) % Nucleated RBC % (0.0-0.9) % Seg Neutrophils # Man (1.8-7.7) K/mm3 Lymphocytes # (Manual) (1.2-5.4) K/mm3 Monocytes # (Manual) (0.0-0.8) K/mm3 ABG pH 7.244 L (7.350-7.450) pH Units POC ABG pCO2 (32.0-48.0) mmHg ABG pO2 (80.0-90.0) mm Hg ABG HCO3 (20.0-26.0) mmol/L ABG Base Excess -4.5 L (-2.0-3.0) mmol/L ABG Hemoglobin 7.3 L (12.0-16.0) gm/dl ABG Chloride (98-107) mmol/L ABG Glucose (65-95) mg/dL Carbon Dioxide (22-30) mmol/L Creatinine (0.6-1.2) mg/dL Glucose (65-100) mg/dL POC Glucose (70-105) mg/dL Lactic Acid 8.00 H* (0.7-2.0) mmol/L Calcium (8.4-10.2) mg/dL AST (5-40) units/L ALT (7-56) units/L Total Protein (6.3-8.2) g/dL Albumin (3.9-5) g/dL Arterial Blood Glucose (65-95) mg/dL Arterial Blood Ionized Calcium (4.6-5.3) mg/dL Crossmatch Medications & Allergies - Medications Allergies/Adverse Reactions: Allergies egg Allergy (Severe, Verified 05/22/20 16:09) Anaphylaxis NSAIDS (Non-Steroidal Anti-Inflamma Allergy (Severe, Verified 05/22/20 16:09) Unknown pt c/o Palpitations, nervous, had to take benadryl Sulfa (Sulfonamide Antibiotics) Allergy (Severe, Verified 05/22/20 16:09) Anaphylaxis SWELING,NUMBNESS ibuprofen Allergy (Intermediate, Verified 05/22/20 16:09) Bleeding latex Allergy (Verified 05/22/20 16:09) Hives plecanatide [From Trulance] Allergy (Verified 05/22/20 16:09) Anaphylaxis adhesive tape Adverse Reaction (Intermediate, Verified 05/22/20 16:09) Unknown PAPER TAPE OK metoclopramide [From Reglan] Adverse Reaction (Verified 05/22/20 16:09) Unknown Home Medications: Home Medications Medication Instructions Recorded Confirmed Last Taken Type Pantoprazole [Protonix TAB] 20 mg PO DAILY 05/10/19 08/20/20 05/10/19 05:00 History busPIRone 15 mg PO DAILY 01/15/20 08/20/20 Unknown History Albuterol Sulfate [Proventil Hfa] 6.7 gm IH Q4HR PRN #1 hfa.aer.ad 04/07/20 08/20/20 Unknown Rx Topiramate (Nf) [Trokendi XR CAP] 100 mg PO DAILY 08/20/20 08/20/20 Unknown History oxyCODONE /ACETAMINOPHEN [Percocet 1 tab PO Q6HR 08/20/20 08/20/20 Unknown History 5/325 mg] Active Medications: Generic Name Dose Route Start Last Admin Trade Name Freq PRN Reason Stop Dose Admin Albumin Human 25 gm 10/03/20 14:00 10/03/20 13:18 Albumin Human 25% (25 Gm/100 Ml) Inj IV 25 gm Q8HR ERINN Administration Fentanyl 50 mcg 10/03/20 14:57 10/03/20 15:25 Fentanyl 100 Mcg/2 Ml Inj IV 50 mcg Q2H PRN Administration agitation/sedation Oxytocin/Sodium Chloride 30 units in 500 mls @ 0 mls/hr 10/02/20 17:00 Pitocin/Ns 30 Unit/500ml IV TITR ERINN Protocol As Directed Vasopressin 20 unit/ Sodium 101 mls @ 9.09 mls/hr 10/02/20 17:00 10/03/20 08:45 Chloride IV 0.03 units/min TITR ERINN 9.09 mls/hr Administration 0.03 UNITS/MIN Sodium Bicarbonate 75 meq/ 1,075 mls @ 250 mls/hr 10/02/20 17:00 10/03/20 18:26 Dextrose IV 250 mls/hr DIRECT ERINN Administration Phenylephrine HCl 100 mg/ 100 mls @ 3 mls/hr 10/02/20 16:30 10/03/20 08:35 Sodium Chloride IV 380 mcg/min TITR ERINN 22.8 mls/hr Administration Protocol 50 MCG/MIN Epinephrine 8 mg/ Sodium 250 mls @ 3.75 mls/hr 10/02/20 18:00 10/03/20 22:23 Chloride IV 10 mcg/min TITR ERINN 18.75 mls/hr Administration Protocol 2 MCG/MIN Lactated Ringer's 1,000 mls @ 999 mls/hr 10/02/20 18:45 10/03/20 07:50 Lactated Ringers IV 10/07/20 19:46 Infused DIRECT ERINN Infusion Norepinephrine 8 mg/ Sodium 250 mls @ 3.75 mls/hr 10/03/20 01:00 10/03/20 22:20 Chloride IV 12 mcg/min TITR ERINN 22.5 mls/hr Titration Protocol 2 MCG/MIN Cefepime HCl 1 gm in 100 mls @ 200 mls/hr 10/03/20 13:00 10/03/20 22:13 Cefepime/Ns 1 Gm/100 Ml IV 200 mls/hr Q8H ERINN Administration Protocol Vancomycin HCl 2,000 mg/ 540 mls @ 250 mls/hr 10/03/20 12:30 10/03/20 15:25 Sodium Chloride IV Infused Q24H ERINN Infusion Sodium Chloride 500 mls @ 0 mls/hr 10/03/20 13:31 Nacl 0.9% 500 Ml IV 10/03/20 23:59 ONCE NR As Directed Lorazepam 2 mg 10/02/20 22:05 10/03/20 21:03 Lorazepam 2 Mg/Ml Vial IV 2 mg Q2H PRN Administration Seizures HEART Score - HEART Score Age: < 45 Risk factors: 1-2 risk factors - Critical Actions Critical Actions: >7 pts:50-65% risk of adverse cardiac event. Early invasive measures
[2020-10-04 01:05] LABS: Hemoglobin 6.8 gm/dl (10.1-14.3)
[2020-10-04 01:24] LABS: INR 1.21 (0.87-1.13); Partial Thromboplastin Time 31.6 Sec. (24.2-36.6)
[2020-10-04 01:24] LABS: Hematocrit 19.4 % (30.3-42.9)
[2020-10-04 01:29] LABS: Albumin 2.4 g/dL (3.9-5); Calcium 6.5 mg/dL (8.4-10.2)
[2020-10-04] MEDS ORDERED: SODIUM CHLORIDE 0.9% 500 ML 500 ML IV ONE ×3 (01:55→11:00)
[2020-10-04] MEDS: SODIUM BICARBONATE 75 MEQ in DEXTROSE 5% IN WATER 1,000 ML IV SCH ×2 (03:11→07:39)
--- NOTE | 2020-10-04 04:05 | XRay Report ---
CHEST 1 VIEW INDICATION: Intubated/Ventilated. COMPARISON: 04/07/2020 FINDINGS: SUPPORT DEVICES: NG tube projects below the [id number] into the abdomen. Endotracheal tube is in s atisfactory position at the level the clavicles. HEART: Within normal limits. LUNGS/PLEURA: Patchy multifocal airspace disease, most advanced throughout the left lung and in the u pper lobes. No effusion. ADDITIONAL FINDINGS: None. IMPRESSION: 1. Pulmonary findings as above. Signer Name: Chris Yoder MD Signed: 10/04/2020 4:01 AM Workstation Name: [id number]
[2020-10-04] MEDS: fentaNYL 100 MCG/2 ML INJ IV PRN ×5 (04:57→15:21)
[2020-10-04] MEDS: ALBUMIN HUMAN 25% (25 GM/100 ML) INJ IV SCH ×3 (06:15→21:17)
[2020-10-04] MEDS: CEFEPIME/NS 1 GM/100 ML 1 GM/100 ML BAG IV SCH ×3 (06:44→22:09)
[2020-10-04] MEDS: LORazepam 2 MG/ML VIAL IV PRN (06:52)
[2020-10-04] MEDS ORDERED: MINERAL OIL/PETROLATUM, WHITE OPHTH OINT 3.5 GM OU PRN (06:55)
[2020-10-04] MEDS ORDERED: LIP THERAPY VASELINE TP PRN (06:55)
[2020-10-04] MEDS ORDERED: SODIUM CHLORIDE 0.9% 500 ML 500 ML IV NR ×2 (08:02→15:08)
[2020-10-04] MEDS: VASOPRESSIN 20 UNIT in SODIUM CHLORIDE 0.9% 100 ML IV SCH (10:02)
--- NOTE | 2020-10-04 10:59 | Progress Note ---
Assessment and Plan 30 y/o female with Eclampsia, s/p emergent section with DIC, acute respiratory failure and worsening renal function. 10/04/2020: Much improved today. Still very ill however. Down to just one pressor. Still with good urine output. Await chemistry results from this am. Likely can stop Bicarb drip given improvement in pH but would like to see bicarb on blood work. Agree with continued transfusion of blood products. Needs fibrinongen levels as well as repeat coags. I cannot see the standing orders on my screen so will call down to lab and let them know what's needed. I know she has had at as 2 cryo's but I am not exactly sure if the count is accurate in the computer in regards to PRBC's and FFP's. Platelets lower this am but still greater than 30K. Continue chowdhury for I/O measurement. Will start to wean FiO2 on vent. CXR looks like edema but oxygenation is stable right now. Resuscitation is the most important thing right now. Will continue abx therapy at least 24 more hours. Prognosis is still very guarded but patient showing signs of improvement. 1. CV-Extremely volume deplete as well as intrasvascular depletion. Will continue to bolus with LR and saline as needed. Will add Albumin to help with intravascular volume. Spoke with OB attending over phone yesterday. No acute indication for steroids at this time. Serial H/H's given maximum pressor requirements. Will transfuse to keep up with AVINASH drain and help with weaning. Severely acidotic but improving. Likely adding to pressor requirement. GOAL is map of 65 and will wean accordingly. Will start to wean Sohail first. Ordered art line as well. 2. Heme-DIC secondary to Eclampsia, possible sepsis but white count could be stress related. Will continue to transfuse PRBC's and FFP with Cryo as needed. Follow Fibrinogen levels. Tele Heme has been consulted and note reviewed. Will give one cryo for every 6 units of PRBC's transfused. has gotten one cryo, awaiting the other to thaw out. Plts at 72K right now. Hold on further transfus ion. May need to consider Factor VII if execessive bleeding continues. Will also put on broad spec abx therapy incase of possible sepsis causing DIC. Hopeful with correction of coaguloapthy she will improve. 3. Very very guarded prognosis. Will continue aggressive resuscitation. Family to come visit given exceptional case and extremely guarded prognosis. CCT 31 minutes. Subjective Date of service: 10/04/20 Principal diagnosis: Eclampsia, HELLP Syndrome, DIC Interval history: Still with significant output from AVINASH drain but turning more serosanginous. Still edematous. Down to 1 of epi and still on Vaso but MAPs are in the 90's. pH is much better this am. Per overnight nurse started moving around more. Requesting continuos sedation but not started yet. Tolerating PRN pushes. UOP still good. Labs not all back but last HgB was 6.8. Objective Vital Signs - 12hr 10/03/20 10/03/20 10/03/20 23:00 23:15 23:30 Temperature Pulse Rate 117 H 117 H 120 H Pulse Rate [ From Monitor] Respiratory 69 H 41 H 86 H Rate Blood Pressure 146/74 131/76 131/76 O2 Sat by Pulse 93 93 91 Oximetry 10/03/20 10/03/20 10/04/20 23:45 23:53 00:01 Temperature 99.2 F Pulse Rate 119 H 115 H Pulse Rate [ From Monitor] Respiratory 43 H 42 H Rate Blood Pressure 131/76 O2 Sat by Pulse 91 91 Oximetry 10/04/20 10/04/20 10/04/20 00:15 00:30 00:40 Temperature Pulse Rate 116 H 118 H 117 H Pulse Rate [ From Monitor] Respiratory 41 H 42 H Rate Blood Pressure 131/76 155/80 155/80 O2 Sat by Pulse 92 93 100 Oximetry 10/04/20 10/04/20 10/04/20 00:45 01:00 01:15 Temperature Pulse Rate 107 H 121 H 121 H Pulse Rate [ From Monitor] Respiratory 36 H 43 H 42 H Rate Blood Pressure 132/63 138/69 135/68 O2 Sat by Pulse 99 91 93 Oximetry 10/04/20 10/04/20 10/04/20 01:30 01:45 02:00 Temperature Pulse Rate 120 H 120 H 121 H Pulse Rate [ From Monitor] Respiratory 42 H 44 H 43 H Rate Blood Pressure 133/71 142/75 153/75 O2 Sat by Pulse 92 91 90 Oximetry 10/04/20 10/04/20 10/04/20 02:15 02:30 02:45 Temperature Pulse Rate 121 H 123 H 123 H Pulse Rate [ From Monitor] Respiratory 43 H 44 H 43 H Rate Blood Pressure 152/68 152/70 139/73 O2 Sat by Pulse 91 91 92 Oximetry 10/04/20 10/04/20 10/04/20 03:00 03:11 03:21 Temperature 100 F H Pulse Rate 121 H 110 H 124 H Pulse Rate [ From Monitor] Respiratory 42 H 34 H 38 H Rate Blood Pressure 142/75 142/75 122/46 O2 Sat by Pulse 90 100 100 Oximetry 10/04/20 10/04/20 10/04/20 03:30 03:41 03:45 Temperature 99 F 100.8 F H Pulse Rate 120 H 120 H 120 H Pulse Rate [ From Monitor] Respiratory 40 H 41 H 39 H Rate Blood Pressure 115/61 115/61 125/69 O2 Sat by Pulse 100 100 100 Oximetry 10/04/20 10/04/20 10/04/20 03:57 04:00 04:13 Temperature Pulse Rate 111 H 122 H 98 H Pulse Rate [ From Monitor] Respiratory 39 H Rate Blood Pressure 129/88 129/88 O2 Sat by Pulse 94 97 Oximetry 10/04/20 10/04/20 10/04/20 04:15 04:30 04:41 Temperature Pulse Rate 118 H 118 H 111 H Pulse Rate [ From Monitor] Respiratory 40 H 43 H 41 H Rate Blood Pressure 120/81 130/76 130/76 O2 Sat by Pulse 100 94 94 Oximetry 10/04/20 10/04/20 10/04/20 04:51 05:00 05:03 Temperature 100.8 F H Pulse Rate 113 H 125 H Pulse Rate [ From Monitor] Respiratory 38 H 35 H Rate Blood Pressure 141/84 132/73 O2 Sat by Pulse 99 100 Oximetry 10/04/20 10/04/20 10/04/20 05:11 05:21 05:30 Temperature Pulse Rate 110 H 110 H 115 H Pulse Rate [ From Monitor] Respiratory 37 H 41 H 38 H Rate Blood Pressure 132/73 126/68 132/93 O2 Sat by Pulse 94 95 95 Oximetry 10/04/20 10/04/20 10/04/20 05:40 05:51 06:00 Temperature 100.1 F H 99.9 F H Pulse Rate 111 H 120 H 101 H Pulse Rate [ From Monitor] Respiratory 41 H 39 H 34 H Rate Blood Pressure 134/92 135/85 135/85 O2 Sat by Pulse 93 91 93 Oximetry 10/04/20 20/20 2020 06:15 06:31 06:45 Temperature Pulse Rate 104 H 111 H 124 H Pulse Rate [ From Monitor] Respiratory 34 H 43 H 43 H Rate Blood Pressure 121/82 154/88 155/83 O2 Sat by Pulse 95 89 93 Oximetry 10/04/20 20/20 20 07:00 07:15 07:30 Temperature Pulse Rate 106 H 120 H 102 H Pulse Rate [ From Monitor] Respiratory 34 H 29 H 33 H Rate Blood Pressure 139/74 132/81 117/71 O2 Sat by Pulse 94 92 95 Oximetry 20/20 20/20 20 07:45 07:54 08:00 Temperature 100.2 F H 100.6 F H Pulse Rate 103 H 103 H Pulse Rate [ 114 H From Monitor] Respiratory 34 H 35 H Rate Blood Pressure 127/70 130/72 O2 Sat by Pulse 94 98 Oximetry 10/04/20 10/04/20 10/04/20 08:15 08:20 08:31 Temperature Pulse Rate 110 H 115 H Pulse Rate [ From Monitor] Respiratory 36 H 33 H 30 H Rate Blood Pressure 130/72 140/62 O2 Sat by Pulse 95 99 Oximetry 10/04/20 20/20 10/04/20 08:45 08:54 09:01 Temperature Pulse Rate 106 H 114 H 118 H Pulse Rate [ From Monitor] Respiratory 32 H 25 H Rate Blood Pressure 114/66 114/66 127/91 O2 Sat by Pulse 100 100 100 Oximetry 10/04/20 20/20 20 09:15 09:20 09:30 Temperature Pulse Rate 108 H 108 H Pulse Rate [ From Monitor] Respiratory 33 H 28 H 34 H Rate Blood Pressure 129/72 133/76 O2 Sat by Pulse 98 99 Oximetry 20/20 20/20 20/20 09:45 10:00 10:15 Temperature Pulse Rate 112 H 112 H 107 H Pulse Rate [ From Monitor] Respiratory 12 33 H 33 H Rate Blood Pressure 139/95 125/80 124/72 O2 Sat by Pulse 99 99 98 Oximetry 20/20 20/20 20/20 10:30 10:35 10:45 Temperature 100.4 F H Pulse Rate 102 H 110 H Pulse Rate [ From Monitor] Respiratory 31 H 40 H Rate Blood Pressure 124/74 163/96 O2 Sat by Pulse 100 96 Oximetry Constitutional: asleep Eyes: non-icteric ENT: other (orally intubated and not sedated) Neck: other (large in cirumference) Ascultation: Bilateral: diminished breath sounds Percussion: Bilateral: not dull Cardiovascular: other (sinus tach) Gastrointestinal: other (post surgical changes with drain on the left side) Extremities: anasarca Neurologic: unable to assess CBC and BMP: 10/04/20 00:40 10/03/20 09:00 ABG, PT/INR, D-dimer: ABG ABG pH 7.422 (7.320-7.450) 10/04/20 03:53 POC ABG pCO2 41.6 mmHg (32.0-48.0) 10/04/20 03:53 ABG pCO2 53.6 mm Hg 10/03/20 11:50 POC ABG pO2 110.6 mmHg (83-108) H 10/04/20 03:53 ABG pO2 89.3 mm Hg (80.0-90.0) 10/03/20 11:50 POC ABG HCO3 26.5 10/04/20 03:53 ABG O2 Saturation 96.7 % (95.0-99.0) 10/03/20 11:50 PT/INR, D-dimer PT 15.1 Sec. (12.2-14.9) H 10/03/20 00:40 INR 1.21 (0.87-1.13) H 10/03/20 00:40 D-Dimer > 11633 ng/mlDDU (0-234) H 10/02/20 Unknown Abnormal lab findings: Abnormal Labs 10/02/20 10/02/20 10/02/20 12:03 12:18 12:18 WBC 14.9 H RBC Hgb 9.1 L Hct MCV MCH 22 L MCHC 28 L RDW 17.6 H Plt Count 102 L Seg Neuts % (Manual) 36.0 L Lymphocytes % (Manual) 49.0 H Monocytes % (Manual) Nucleated RBC % 6.0 H Seg Neutrophils # Man Lymphocytes # (Manual) 7.3 H Monocytes # (Manual) PT INR APTT Fibrinogen D-Dimer ABG pH POC ABG pCO2 POC ABG pO2 ABG pO2 ABG HCO3 ABG Base Excess ABG Hemoglobin ABG Sodium ABG Chloride ABG Glucose VBG pH Oxyhemoglobin Sodium 134 L Carbon Dioxide 12 L BUN 6 L Creatinine Glucose 390 H POC Glucose 451 H Lactic Acid Calcium AST 135 H ALT 85 H Alkaline Phosphatase 172 H Lactate Dehydrogenase 641 H Total Protein 5.4 L Albumin 2.3 L Arterial Blood Glucose Arterial Blood Ionized Calcium Crossmatch 10/02/20 10/02/20 10/02/20 12:50 13:05 13:05 WBC 38.6 H RBC Hgb 8.9 L Hct 29.0 L MCV 73 L MCH 22 L MCHC RDW 17.2 H Plt Count Seg Neuts % (Manual) Lymphocytes % (Manual) Monocytes % (Manual) Nucleated RBC % 2.0 H Seg Neutrophils # Man 20.1 H Lymphocytes # (Manual) 10.4 H Monocytes # (Manual) 2.3 H PT INR APTT Fibrinogen D-Dimer ABG pH POC ABG pCO2 POC ABG pO2 ABG pO2 ABG HCO3 ABG Base Excess ABG Hemoglobin ABG Sodium ABG Chloride ABG Glucose VBG pH Oxyhemoglobin Sodium Carbon Dioxide BUN Creatinine Glucose POC Glucose Lactic Acid Calcium AST 184 H ALT 113 H Alkaline Phosphatase Lactate Dehydrogenase 769 H Total Protein Albumin Arterial Blood Glucose Arterial Blood Ionized Calcium Crossmatch See Detail 10/02/20 10/02/20 10/02/20 16:25 16:35 16:35 WBC RBC Hgb Hct MCV MCH MCHC RDW Plt Count Seg Neuts % (Manual) Lymphocytes % (Manual) Monocytes % (Manual) Nucleated RBC % Seg Neutrophils # Man Lymphocytes # (Manual) Monocytes # (Manual) PT INR APTT Fibrinogen D-Dimer ABG pH 7.031 L* POC ABG pCO2 POC ABG pO2 ABG pO2 116.8 H ABG HCO3 12.7 L ABG Base Excess -16.9 L ABG Hemoglobin 7.8 L ABG Sodium ABG Chloride ABG Glucose VBG pH Oxyhemoglobin 94.9 L Sodium Carbon Dioxide BUN Creatinine Glucose 403 H POC Glucose Lactic Acid 11.40 H* Calcium 6.3 L D AST 70 H ALT Alkaline Phosphatase Lactate Dehydrogenase Total Protein 1.9 L D Albumin 1.2 L Arterial Blood Glucose Arterial Blood Ionized Calcium Crossmatch 10/02/20 10/02/20 10/02/20 18:18 18:18 22:30 WBC 11.5 H RBC 2.06 L Hgb 5.5 L* D Hct 17.3 L* D MCV MCH 27 L MCHC RDW 19.5 H Plt Count 60 L Seg Neuts % (Manual) Lymphocytes % (Manual) 8.0 L Monocytes % (Manual) 8.0 H Nucleated RBC % 8.0 H Seg Neutrophils # Man Lymphocytes # (Manual) 0.9 L Monocytes # (Manual) 0.9 H PT 37.1 H INR 3.71 H APTT 135.8 H* Fibrinogen D-Dimer ABG pH 7.067 L* POC ABG pCO2 POC ABG pO2 ABG pO2 183.0 H ABG HCO3 14.1 L ABG Base Excess -15.1 L ABG Hemoglobin 7.7 L ABG Sodium ABG Chloride ABG Glucose VBG pH Oxyhemoglobin Sodium Carbon Dioxide BUN Creatinine Glucose POC Glucose Lactic Acid Calcium AST ALT Alkaline Phosphatase Lactate Dehydrogenase Total Protein Albumin Arterial Blood Glucose Arterial Blood Ionized Calcium Crossmatch 10/02/20 10/02/20 10/03/20 Unknown Unknown 00:01 WBC RBC Hgb Hct MCV MCH MCHC RDW Plt Count Seg Neuts % (Manual) Lymphocytes % (Manual) Monocytes % (Manual) Nucleated RBC % Seg Neutrophils # Man Lymphocytes # (Manual) Monocytes # (Manual) PT 61.1 H INR 6.92 H* APTT 158.7 H* Fibrinogen < 60 L* D-Dimer > 95054 H ABG pH POC ABG pCO2 POC ABG pO2 ABG pO2 ABG HCO3 ABG Base Excess ABG Hemoglobin ABG Sodium ABG Chloride ABG Glucose VBG pH 6.949 L* Oxyhemoglobin Sodium Carbon Dioxide BUN Creatinine Glucose POC Glucose 196 H Lactic Acid Calcium AST ALT Alkaline Phosphatase Lactate Dehydrogenase Total Protein Albumin Arterial Blood Glucose Arterial Blood Ionized Calcium Crossmatch 10/03/20 10/03/20 10/03/20 00:40 00:40 00:40 WBC RBC Hgb Hct MCV MCH MCHC RDW Plt Count Seg Neuts % (Manual) Lymphocytes % (Manual) Monocytes % (Manual) Nucleated RBC % Seg Neutrophils # Man Lymphocytes # (Manual) Monocytes # (Manual) PT 15.1 H INR 1.21 H APTT Fibrinogen D-Dimer ABG pH POC ABG pCO2 POC ABG pO2 ABG pO2 ABG HCO3 ABG Base Excess ABG Hemoglobin ABG Sodium ABG Chloride ABG Glucose VBG pH Oxyhemoglobin Sodium 136 L Carbon Dioxide BUN Creatinine 1.6 H D Glucose 106 H POC Glucose Lactic Acid 5.60 H* Calcium 6.5 L AST 232 H ALT 104 H Alkaline Phosphatase Lactate Dehydrogenase Total Protein 3.9 L D Albumin 2.4 L Arterial Blood Glucose Arterial Blood Ionized Calcium Crossmatch 10/03/20 10/03/20 10/03/20 02:08 02:08 02:08 WBC 17.6 H RBC 3.27 L Hgb 9.9 L D Hct 29.9 L D MCV MCH MCHC RDW 16.5 H Plt Count 75 L Seg Neuts % (Manual) 76.0 H Lymphocytes % (Manual) Monocytes % (Manual) Nucleated RBC % 8.0 H Seg Neutrophils # Man 13.4 H Lymphocytes # (Manual) Monocytes # (Manual) PT INR APTT Fibrinogen D-Dimer ABG pH POC ABG pCO2 POC ABG pO2 ABG pO2 ABG HCO3 ABG Base Excess ABG Hemoglobin ABG Sodium ABG Chloride ABG Glucose VBG pH Oxyhemoglobin Sodium Carbon Dioxide 19 L BUN Creatinine 1.4 H Glucose 306 H POC Glucose Lactic Acid 10.50 H* Calcium 6.4 L AST ALT Alkaline Phosphatase Lactate Dehydrogenase Total Protein Albumin Arterial Blood Glucose Arterial Blood Ionized Calcium Crossmatch 10/03/20 10/03/20 10/03/20 02:42 03:59 05:31 WBC RBC Hgb Hct MCV MCH MCHC RDW Plt Count Seg Neuts % (Manual) Lymphocytes % (Manual) Monocytes % (Manual) Nucleated RBC % Seg Neutrophils # Man Lymphocytes # (Manual) Monocytes # (Manual) PT INR APTT Fibrinogen D-Dimer ABG pH 7.144 L POC ABG pCO2 54.4 H POC ABG pO2 ABG pO2 ABG HCO3 ABG Base Excess ABG Hemoglobin 10.0 L ABG Sodium ABG Chloride 108.0 H ABG Glucose 306 H VBG pH Oxyhemoglobin Sodium Carbon Dioxide BUN Creatinine Glucose POC Glucose 209 H Lactic Acid 9.20 H* Calcium AST ALT Alkaline Phosphatase Lactate Dehydrogenase Total Protein Albumin Arterial Blood Glucose 306 H Arterial Blood Ionized Calcium 3.7 L Crossmatch 10/03/20 10/03/20 10/03/20 09:00 09:00 09:00 WBC 27.4 H RBC 2.84 L Hgb 8.5 L Hct 25.1 L MCV MCH MCHC RDW 16.1 H Plt Count 72 L Seg Neuts % (Manual) Lymphocytes % (Manual) 11.0 L Monocytes % (Manual) Nucleated RBC % 3.0 H Seg Neutrophils # Man 18.4 H Lymphocytes # (Manual) Monocytes # (Manual) 1.9 H PT INR APTT Fibrinogen D-Dimer ABG pH POC ABG pCO2 POC ABG pO2 ABG pO2 ABG HCO3 ABG Base Excess ABG Hemoglobin ABG Sodium ABG Chloride ABG Glucose VBG pH Oxyhemoglobin Sodium Carbon Dioxide BUN Creatinine 1.7 H Glucose 216 H POC Glucose Lactic Acid 9.20 H* Calcium 6.3 L AST 331 H ALT 171 H Alkaline Phosphatase Lactate Dehydrogenase Total Protein 3.7 L Albumin 1.9 L Arterial Blood Glucose Arterial Blood Ionized Calcium Crossmatch 10/03/20 10/03/20 10/03/20 11:20 11:46 11:50 WBC 28.7 H RBC 2.67 L Hgb 8.0 L Hct 23.7 L MCV MCH MCHC RDW 16.6 H Plt Count 76 L Seg Neuts % (Manual) Lymphocytes % (Manual) Monocytes % (Manual) Nucleated RBC % Seg Neutrophils # Man Lymphocytes # (Manual) Monocytes # (Manual) PT INR APTT Fibrinogen D-Dimer ABG pH POC ABG pCO2 POC ABG pO2 ABG pO2 ABG HCO3 ABG Base Excess ABG Hemoglobin ABG Sodium ABG Chloride ABG Glucose VBG pH Oxyhemoglobin Sodium Carbon Dioxide BUN Creatinine Glucose POC Glucose 125 H Lactic Acid 8.00 H* Calcium AST ALT Alkaline Phosphatase Lactate Dehydrogenase Total Protein Albumin Arterial Blood Glucose Arterial Blood Ionized Calcium Crossmatch 10/03/20 10/04/20 10/04/20 11:50 00:40 00:40 WBC RBC Hgb 6.8 L Hct 19.4 L* MCV MCH MCHC RDW Plt Count 49 L Seg Neuts % (Manual) Lymphocytes % (Manual) Monocytes % (Manual) Nucleated RBC % Seg Neutrophils # Man Lymphocytes # (Manual) Monocytes # (Manual) PT INR APTT Fibrinogen D-Dimer ABG pH 7.244 L POC ABG pCO2 POC ABG pO2 ABG pO2 ABG HCO3 ABG Base Excess -4.5 L ABG Hemoglobin 7.3 L ABG Sodium ABG Chloride ABG Glucose VBG pH Oxyhemoglobin Sodium Carbon Dioxide BUN Creatinine Glucose POC Glucose Lactic Acid Calcium AST ALT Alkaline Phosphatase Lactate Dehydrogenase Total Protein Albumin Arterial Blood Glucose Arterial Blood Ionized Calcium Crossmatch 10/04/20 03:53 WBC RBC Hgb Hct MCV MCH MCHC RDW Plt Count Seg Neuts % (Manual) Lymphocytes % (Manual) Monocytes % (Manual) Nucleated RBC % Seg Neutrophils # Man Lymphocytes # (Manual) Monocytes # (Manual) PT INR APTT Fibrinogen D-Dimer ABG pH POC ABG pCO2 POC ABG pO2 110.6 H ABG pO2 ABG HCO3 ABG Base Excess ABG Hemoglobin 6.7 L ABG Sodium 132.0 L ABG Chloride ABG Glucose 111 H VBG pH Oxyhemoglobin Sodium Carbon Dioxide BUN Creatinine Glucose POC Glucose Lactic Acid Calcium AST ALT Alkaline Phosphatase Lactate Dehydrogenase Total Protein Albumin Arterial Blood Glucose 111 H Arterial Blood Ionized Calcium 3.5 L Crossmatch
[2020-10-04 11:15] LABS: Basophils % (Auto) 0.2 % (0.0-1.8); Hematocrit 22.5 % (30.3-42.9); Hemoglobin 7.6 gm/dl (10.1-14.3); Lymphocytes # (Auto) 1.1 K/mm3 (1.2-5.4); Lymphocytes % (Auto) 7.7 % (13.4-35.0); Mean Corpuscular HGB Conc 34 % (30-34); Mean Corpuscular Volume 88 fl (79-97); Monocytes # (Auto) 0.9 K/mm3 (0.0-0.8); Monocytes % (Auto) 6.5 % (0.0-7.3); Red Blood Count 2.57 M/mm3 (3.65-5.03); Red Cell Distribution Width 15.8 % (13.2-15.2)
[2020-10-04 11:29] LABS: Albumin 2.3 g/dL (3.9-5); Calcium 6.3 mg/dL (8.4-10.2)
[2020-10-04 11:30] LABS: INR 1.06 (0.87-1.13)
[2020-10-04 11:31] LABS: Fibrinogen 336 mg/dl (211-480)
[2020-10-04 11:36] LABS: Platelet Count 38 K/mm3 (140-440)
[2020-10-04] MEDS: VANCOMYCIN 2,000 MG in SODIUM CHLORIDE 0.9% 500 ML 500 ML IV SCH (12:27)
[2020-10-04] MEDS ORDERED: CALCIUM GLUCONATE 1,000 MG in SODIUM CHLORIDE 0.9% 100 ML IV ONE (12:30)
--- NOTE | 2020-10-04 12:42 | Progress Note ---
Assessment and Plan Impression: * Nonoliguric acute kidney injury secondary to ischemic ATN * Cardiac arrest * Acute hypoxic respiratory failure * DIC * Anemia secondary to acute blood loss * hemorrhage * Mixed respiratory/metabolic acidosis * Presumed eclampsia Plan: * Patient is clinically improved. Renal function is stable. Volume status/lytes acceptable. There is no need for renal replacement therapy at this time * Transfusion of blood products per primary team * Pressors prn to maintain MAP>65 * [id number] per CCM * Strict I/O * Vent management per pulmonary/CCM * Dose medications for renal function * Avoid potential nephrotoxins Subjective Date of service: 10/04/20 Principal diagnosis: Eclampsia, HELLP Syndrome, DIC Interval history: No acute events overnight. Remains intuabed - Rate 20, TV 450, FiO2 80, PEEP 8. Pressors have been titrated off with exception of Vasopressin. Objective - Vital Signs Vital signs: Vital Signs - 12hr 10/04/20 10/04/20 10/04/20 00:45 01:00 01:15 Temperature Pulse Rate 107 H 121 H 121 H Pulse Rate [ From Monitor] Respiratory 36 H 43 H 42 H Rate Blood Pressure 132/63 138/69 135/68 O2 Sat by Pulse 99 91 93 Oximetry 10/04/20 10/04/20 10/04/20 01:30 01:45 02:00 Temperature Pulse Rate 120 H 120 H 121 H Pulse Rate [ From Monitor] Respiratory 42 H 44 H 43 H Rate Blood Pressure 133/71 142/75 153/75 O2 Sat by Pulse 92 91 90 Oximetry 10/04/20 10/04/20 10/04/20 02:15 02:30 02:45 Temperature Pulse Rate 121 H 123 H 123 H Pulse Rate [ From Monitor] Respiratory 43 H 44 H 43 H Rate Blood Pressure 152/68 152/70 139/73 O2 Sat by Pulse 91 91 92 Oximetry 10/04/20 10/04/20 10/04/20 03:00 03:11 03:21 Temperature 100 F H Pulse Rate 121 H 110 H 124 H Pulse Rate [ From Monitor] Respiratory 42 H 34 H 38 H Rate Blood Pressure 142/75 142/75 122/46 O2 Sat by Pulse 90 100 100 Oximetry 10/04/20 10/04/20 10/04/20 03:30 03:41 03:45 Temperature 99 F 100.8 F H Pulse Rate 120 H 120 H 120 H Pulse Rate [ From Monitor] Respiratory 40 H 41 H 39 H Rate Blood Pressure 115/61 115/61 125/69 O2 Sat by Pulse 100 100 100 Oximetry 10/04/20 10/04/20 10/04/20 03:57 04:00 04:13 Temperature Pulse Rate 111 H 122 H 98 H Pulse Rate [ From Monitor] Respiratory 39 H Rate Blood Pressure 129/88 129/88 O2 Sat by Pulse 94 97 Oximetry 10/04/20 10/04/20 10/04/20 04:15 04:30 04:41 Temperature Pulse Rate 118 H 118 H 111 H Pulse Rate [ From Monitor] Respiratory 40 H 43 H 41 H Rate Blood Pressure 120/81 130/76 130/76 O2 Sat by Pulse 100 94 94 Oximetry 10/04/20 10/04/20 10/04/20 04:51 05:00 05:03 Temperature 100.8 F H Pulse Rate 113 H 125 H Pulse Rate [ From Monitor] Respiratory 38 H 35 H Rate Blood Pressure 141/84 132/73 O2 Sat by Pulse 99 100 Oximetry 10/04/20 10/04/20 10/04/20 05:11 05:21 05:30 Temperature Pulse Rate 110 H 110 H 115 H Pulse Rate [ From Monitor] Respiratory 37 H 41 H 38 H Rate Blood Pressure 132/73 126/68 132/93 O2 Sat by Pulse 94 95 95 Oximetry 10/04/20 10/04/20 10/04/20 05:40 05:51 06:00 Temperature 100.1 F H 99.9 F H Pulse Rate 111 H 120 H 101 H Pulse Rate [ From Monitor] Respiratory 41 H 39 H 34 H Rate Blood Pressure 134/92 135/85 135/85 O2 Sat by Pulse 93 91 93 Oximetry 10/04/20 10/04/20 10/04/20 06:15 06:31 06:45 Temperature Pulse Rate 104 H 111 H 124 H Pulse Rate [ From Monitor] Respiratory 34 H 43 H 43 H Rate Blood Pressure 121/82 154/88 155/83 O2 Sat by Pulse 95 89 93 Oximetry 10/04/20 10/04/20 10/04/20 07:00 07:15 07:30 Temperature Pulse Rate 106 H 120 H 102 H Pulse Rate [ From Monitor] Respiratory 34 H 29 H 33 H Rate Blood Pressure 139/74 132/81 117/71 O2 Sat by Pulse 94 92 95 Oximetry 10/04/20 10/04/20 10/04/20 07:45 07:54 08:00 Temperature 100.2 F H 100.6 F H Pulse Rate 103 H 114 H Pulse Rate [ 114 H From Monitor] Respiratory 34 H 35 H Rate Blood Pressure 127/70 130/72 O2 Sat by Pulse 94 99 Oximetry 10/04/20 10/04/20 10/04/20 08:15 08:20 08:31 Temperature Pulse Rate 110 H 115 H Pulse Rate [ From Monitor] Respiratory 36 H 33 H 30 H Rate Blood Pressure 130/72 140/62 O2 Sat by Pulse 95 99 Oximetry 10/04/20 10/04/20 10/04/20 08:45 08:54 09:01 Temperature Pulse Rate 106 H 114 H 118 H Pulse Rate [ From Monitor] Respiratory 32 H 25 H Rate Blood Pressure 114/66 114/66 127/91 O2 Sat by Pulse 100 100 100 Oximetry 10/04/20 10/04/20 10/04/20 09:15 09:20 09:30 Temperature Pulse Rate 108 H 108 H Pulse Rate [ From Monitor] Respiratory 33 H 28 H 34 H Rate Blood Pressure 129/72 133/76 O2 Sat by Pulse 98 99 Oximetry 10/04/20 10/04/20 10/04/20 09:45 10:00 10:15 Temperature Pulse Rate 112 H 112 H 107 H Pulse Rate [ From Monitor] Respiratory 12 33 H 33 H Rate Blood Pressure 139/95 125/80 124/72 O2 Sat by Pulse 99 99 98 Oximetry 10/04/20 10/04/20 10/04/20 10:30 10:35 10:45 Temperature 100.4 F H Pulse Rate 102 H 110 H Pulse Rate [ From Monitor] Respiratory 31 H 40 H Rate Blood Pressure 124/74 163/96 O2 Sat by Pulse 100 96 Oximetry 10/04/20 10/04/20 10/04/20 11:01 11:15 11:30 Temperature Pulse Rate 113 H 106 H 107 H Pulse Rate [ From Monitor] Respiratory 29 H 31 H 31 H Rate Blood Pressure 123/54 115/59 141/73 O2 Sat by Pulse 98 99 100 Oximetry 10/04/2020 10/04/20 11:36 11:40 11:45 Temperature 100.6 F H 100.8 F H Pulse Rate 107 H Pulse Rate [ From Monitor] Respiratory 29 H Rate Blood Pressure 129/69 O2 Sat by Pulse 98 Oximetry 10/04/20 12:00 Temperature 100.8 F H Pulse Rate 105 H Pulse Rate [ 104 H From Monitor] Respiratory 36 H Rate Blood Pressure 165/87 O2 Sat by Pulse 99 Oximetry - General Appearance General appearance: well-developed, appears stated age, intubated EENT: ATNC, other (ETT in place) Respiratory: Present: Other (Diminished breath sounds) Cardiology: regular, S1S2 Gastrointestinal: hypoactive bowel sounds Integumentary: no rash, warm and dry Musculoskeletal: other (Trace edema) - Lab 10/04/20 10:00 10/04/20 10:00 Most recent lab results ABG pH 7.422 (7.320-7.450) 10/04/20 03:53 ABG pCO2 53.6 mm Hg 10/03/20 11:50 ABG pO2 89.3 mm Hg (80.0-90.0) 10/03/20 11:50 ABG HCO3 22.7 mmol/L (20.0-26.0) 10/03/20 11:50 ABG O2 Saturation 96.7 % (95.0-99.0) 10/03/20 11:50 Calcium 6.3 mg/dL (8.4-10.2) L 10/04/20 10:00 Medications & Allergies - Medications Allergies/Adverse Reactions: Allergies egg Allergy (Severe, Verified 05/22/20 16:09) Anaphylaxis NSAIDS (Non-Steroidal Anti-Inflamma Allergy (Severe, Verified 05/22/20 16:09) Unknown pt c/o Palpitations, nervous, had to take benadryl Sulfa (Sulfonamide Antibiotics) Allergy (Severe, Verified 05/22/20 16:09) Anaphylaxis SWELING,NUMBNESS ibuprofen Allergy (Intermediate, Verified 05/22/20 16:09) Bleeding latex Allergy (Verified 05/22/20 16:09) Hives plecanatide [From Trulance] Allergy (Verified 05/22/20 16:09) Anaphylaxis adhesive tape Adverse Reaction (Intermediate, Verified 05/22/20 16:09) Unknown PAPER TAPE [place] metoclopramide [From Reglan] Adverse Reaction (Verified 05/22/20 16:09) Unknown Home Medications: Home Medications Medication Instructions Recorded Confirmed Last Taken Type Pantoprazole [Protonix TAB] 20 mg PO DAILY 05/10/19 08/20/20 05/10/19 05:00 History busPIRone 15 mg PO DAILY 01/15/20 08/20/20 Unknown History Albuterol Sulfate [Proventil Hfa] 6.7 gm IH Q4HR PRN #1 hfa.aer.ad 04/07/20 08/20/20 Unknown Rx Topiramate (Nf) [Trokendi XR CAP] 100 mg PO DAILY 08/20/20 08/20/20 Unknown History oxyCODONE /ACETAMINOPHEN [Percocet 1 tab PO Q6HR 08/20/20 08/20/20 Unknown History 5/325 mg] Active Medications: Generic Name Dose Route Start Last Admin Trade Name Freq PRN Reason Stop Dose Admin Albumin Human 25 gm 10/03/20 14:00 10/04/20 06:15 Albumin Human 25% (25 Gm/100 Ml) Inj IV 25 gm Q8HR ERINN Administration Fentanyl 50 mcg 10/03/20 14:57 10/04/20 08:20 Fentanyl 100 Mcg/2 Ml Inj IV 50 mcg Q2H PRN Administration agitation/sedation Hydrophilic Ointment 1 applic 10/04/20 06:55 Lip Therapy Vaseline TP Q2HR PRN Dry Lips Oxytocin/Sodium Chloride 30 units in 500 mls @ 0 mls/hr 10/02/20 17:00 Pitocin/Ns 30 Unit/500ml IV TITR ERINN Protocol As Directed Vasopressin 20 unit/ Sodium 101 mls @ 9.09 mls/hr 10/02/20 17:00 10/04/20 10:02 Chloride IV 0.03 units/min TITR ERINN 9.09 mls/hr Administration 0.03 UNITS/MIN Phenylephrine HCl 100 mg/ 100 mls @ 3 mls/hr 10/02/20 16:30 10/03/20 08:35 Sodium Chloride IV 380 mcg/min TITR ERINN 22.8 mls/hr Administration Protocol 50 MCG/MIN Epinephrine 8 mg/ Sodium 250 mls @ 3.75 mls/hr 10/02/20 18:00 10/04/20 11:06 Chloride IV 0 mcg/min TITR ERINN 0 mls/hr Titration Protocol 2 MCG/MIN Lactated Ringer's 1,000 mls @ 999 mls/hr 10/02/20 18:45 10/03/20 07:50 Lactated Ringers IV 10/07/20 19:46 Infused DIRECT ERINN Infusion Norepinephrine 8 mg/ Sodium 250 mls @ 3.75 mls/hr 10/03/20 01:00 10/04/20 02:06 Chloride IV 0 mcg/min TITR ERINN 0 mls/hr Titration Protocol 2 MCG/MIN Cefepime HCl 1 gm in 100 mls @ 200 mls/hr 10/03/20 13:00 10/04/20 06:44 Cefepime/Ns 1 Gm/100 Ml IV 200 mls/hr Q8H ERINN Administration Protocol Vancomycin HCl 2,000 mg/ 540 mls @ 250 mls/hr 10/03/20 12:30 10/04/20 12:27 Sodium Chloride IV 250 mls/hr Q24H ERINN Administration Fentanyl Citrate 2,000 mcg in 100 mls @ 6.235 mls/hr 10/04/20 07:00 Fentanyl Drip Premix IV TITR ERINN Protocol 1 MCG/KG/HR Sodium Chloride 500 mls @ 0 mls/hr 10/04/20 08:02 Nacl 0.9% 500 Ml IV 10/05/20 08:01 ONCE NR As Directed Dextrose 1,000 mls @ 42 mls/hr 10/04/20 13:00 D10w IV DIRECT ERINN Lorazepam 2 mg 10/02/20 22:05 10/04/20 06:52 Lorazepam 2 Mg/Ml Vial IV 2 mg Q2H PRN Administration Seizures Multi-Ingred Cream/Lotion/Oil/Oint 1 applic 10/04/20 06:55 Mineral Oil/Petrolatum, White Ophth Oint 3.5 Gm OU Q4HR PRN Dry Eye(s)
[2020-10-04] MEDS ORDERED: DEXTROSE 10% IN WATER 1,000 ML IV SCH (13:00)
--- NOTE | 2020-10-04 13:25 | Progress Note ---
Assessment and Plan Assessment and plan: 30 year old -Hungarian female CHE 10/25/20 at 36w5d who presents with seizures in triage. Pt is not able to provide history but per pt's , she presented to the hospital to return a 24 hour urine specimen for analysis. She then suddenly reported that she did not feel good. She was taken to labor and delivery and shortly after arrival, she began seizing. During this time, a code met was called because the patient became hypoxic. She was then noted to be without a pulse. Chest compressions were started immediately, and the patient was emergently taken to the operating room for delivery of the fetus. This patient has had care at [facility] with comanagement by [facility] since 11 wks complicated by ADHD, morbid obesity, generalized anxiety disorder, panic attacks, chronic narcotic use, fibromyalgia, GERD, Irritable Bowel Syndrome, Migraines, h/o endometrial ablation and ovarian vein embolization, genital herpes, insomnia, LGA fetus, nausea and vomiting, polyh ydramnios, quad screen positive for Down's Syndrome, and previous x 3. She is GBS negative. 11:30: Pt brought to L&D triage for evaluation of possible labor. Pt accompanied by her spouse. Pt spouse poor historian; unable to obtain history, allergies at this time. Pt taken from registration to triage area via WC. Pt unresponsive, actively seizing with snorous respirations. bi report developer, Kassy, called and requesting assistance. 11:35: Multiple staff at bedside. Pt 02 sat 67% on nonrebreather, unable to read BP at this time. Yifan Theodore CRNA, at bedside for intubation and assistance wi th IV insertion. INT attempt by multiple RNs unsuccessful at this time. 11:42: Pt being bagged by KORIN, 02% 79%. No pulse palpated, compressions started at this time; bharati young called and Dr. Nebwerry preparing OR for emergent c/s. 11:44: Continued compressions on stretcher while transporting pt to OR 1. Pt being bagged with jaw thrust manuever in place by KORIN Stringer student. 11:45: Arrival to OR 1. Dr. Newberry and Dr. Portillo present for emergent c/s. Code team arrived for continued care. patient revived and c/s done Patient has been bleeding from C/s site Patient transfused multiple units of PRBC Patient in DIC. Transferred to the ICU 10/03. Patient seen and examined at bedside this morning. Patient is nonresponsive and mechanically ventilated. On pressors. Labs reviewed-has le ukocytosis, anemia, thrombocytopenia, ADOLPH and lactic acidosis. Started on IV antibiotics to cover possible sepsis secondary to DIC. Hematology oncology recommendations appreciated-needs additional cryoprecipitate and FFP. Monitor D-dimer, fibrinogen and frequent labs. Nephrology consulted for lactic acidosis and ADOLPH. 10/04. Remains mechanically ventilated. [place] antibiotics. Labs shows improved acidosis - lactic acid 3.5. Hb drop noted. Getting transfused 2 units PRBCs. Platelet count is ~40k. Continue to monitor labs closely. Critical care team on board. Assessment/Plan --Acute respiratory failure with hypoxia Current Visit: Yes Status: Acute Plan to address problem: Patient intubated Vent management --DIC (disseminated intravascular coagulation) vs HELLP syndrome Current Visit: Yes Status: Acute Plan to address problem: Has anemia,thrombocytopenia and elevated liver enzymes Patient received multiple units of RBCs, FFP's, cryo Hematology/oncology recommendations appreciated Continue to trend fibrinogen and INR Critical care on board --Cardiac arrest Current Visit: Yes Status: Acute Plan to address problem: ACLS protocol followed by revival Echo pending --Shock Current Visit: Yes Status: Acute Plan to address problem: Now on one pressor Likely hypovolemic. Started on empirical antibiotics for possible sepsis. Continue to monitor blood pressure closely Trend H&H and transfuse as needed --Lactic acidosis Current Visit: Yes Status: Acute Plan to address problem: As a result of poor organ perfusion and possible sepsis Continue IV hydration. Lactic acid is trending down Nephrology on board --ADOLPH Current Visit: Yes Status: Acute Plan to address problem: As a result of hypoperfusion and shock Continue IV hydration Cr stable at 1.7. DVT prophylaxis Current Visit: Yes Status: Acute Plan to address problem: Patient in DIC No anticoagulants History Interval history: Patient seen and examined at bedside On 1 pressor. Remains intubated Hospitalist Physical - Physical exam Narrative exam: VITAL SIGNS: Reviewed. GENERAL: Intubated HEAD: No signs of head trauma. EYES: Pupils are equal. MOUTH: OT in place NECK: No adenopathy, no JVD. CHEST: Rales posteriorly CARDIAC: normal S1 and S2, without murmurs, gallops, or rubs. ABDOMEN: Soft, non tender and non distended. No rebound or guarding, and no masses palpated. Bowel Sounds normal. AVINASH drain intact with bloody fluid MUSCULOSKELETAL: No edema NEUROLOGIC EXAM: Intubated SKIN: No obvious lesions - Constitutional Vitals: Temp Pulse Resp BP Pulse Ox 100.8 F H 105 H 36 H 152/83 97 10/04/20 12:00 10/04/20 13:10 10/04/20 12:00 10/04/20 13:10 10/04/20 13:10 HEART Score - HEART Score Age: < 45 Risk factors: 1-2 risk factors - Critical Actions Critical Actions: >7 pts:50-65% risk of adverse cardiac event. Early invasive measures Results - Labs CBC & Chem 7: 10/04/20 10:00 10/04/20 10:00 Labs: Laboratory Last Values WBC 14.6 K/mm3 (4.5-11.0) H 10/04/20 10:00 RBC 2.57 M/mm3 (3.65-5.03) L 10/04/20 10:00 Hgb 7.6 gm/dl (10.1-14.3) L 10/04/20 10:00 Hct 22.5 % (30.3-42.9) L 10/04/20 10:00 MCV 88 fl (79-97) 10/04/20 10:00 MCH 30 pg (28-32) 10/04/20 10:00 MCHC 34 % (30-34) 10/04/20 10:00 RDW 15.8 % (13.2-15.2) H 10/04/20 10:00 Plt Count 38 K/mm3 (140-440) L 10/04/20 10:00 Lymph % (Auto) 7.7 % (13.4-35.0) L 10/04/20 10:00 [place] % (Auto) 6.5 % (0.0-7.3) 10/04/20 10:00 Eos % (Auto) 0.0 % (0.0-4.3) 10/04/20 10:00 Baso % (Auto) 0.2 % (0.0-1.8) 10/04/20 10:00 Lymph # (Auto) 1.1 K/mm3 (1.2-5.4) L 10/04/20 10:00 [place] # (Auto) 0.9 K/mm3 (0.0-0.8) H 10/04/20 10:00 Eos # (Auto) 0.0 K/mm3 (0.0-0.4) 10/04/20 10:00 Baso # (Auto) 0.0 K/mm3 (0.0-0.1) 10/04/20 10:00 Add Manual Diff Complete 10/03/20 09:00 Total Counted 100 10/03/20 09:00 Seg Neutrophils % 85.6 % (40.0-70.0) H 10/04/20 10:00 Seg Neuts % (Manual) 67.0 % (40.0-70.0) 10/03/20 09:00 Band Neutrophils % 11.0 % 10/03/20 09:00 Lymphocytes % (Manual) 11.0 % (13.4-35.0) L 10/03/20 09:00 Reactive Lymphs % (Man) 1.0 % 10/02/20 12:18 Monocytes % (Manual) 7.0 % (0.0-7.3) 10/03/20 09:00 Metamyelocytes % 4.0 % 10/03/20 09:00 Myelocytes % 2.0 % 10/02/20 13:05 Nucleated RBC % 3.0 % (0.0-0.9) H 10/03/20 09:00 Seg Neutrophils # 12.5 K/mm3 (1.8-7.7) H 10/04/20 10:00 Seg Neutrophils # Man 18.4 K/mm3 (1.8-7.7) H 10/03/20 09:00 Band Neutrophils # 3.0 K/mm3 10/03/20 09:00 Lymphocytes # (Manual) 3.0 K/mm3 (1.2-5.4) 10/03/20 09:00 Abs React Lymphs (Man) 0.0 K/mm3 10/03/20 09:00 Monocytes # (Manual) 1.9 K/mm3 (0.0-0.8) H 10/03/20 09:00 Eosinophils # (Manual) 0.0 K/mm3 (0.0-0.4) 10/03/20 09:00 Basophils # (Manual) 0.0 K/mm3 (0.0-0.1) 10/03/20 09:00 Metamyelocytes # 1.1 K/mm3 10/03/20 09:00 Myelocytes # 0.0 K/mm3 10/03/20 09:00 Promyelocytes # 0.0 K/mm3 10/03/20 09:00 Blast Cells # 0.0 K/mm3 10/03/20 09:00 WBC Morphology Not Reportable 10/03/20 09:00 WBC Morphology TNR 10/03/20 09:00 Hypersegmented Neuts Not Reportable 10/03/20 09:00 Hyposegmented Neuts Not Reportable 10/03/20 09:00 Hypogranular Neuts Not Reportable 10/03/20 09:00 Smudge Cells Not Reportable 10/03/20 09:00 Toxic Granulation Not Reportable 10/03/20 09:00 Toxic Vacuolation Not Reportable 10/03/20 09:00 Dohle Bodies Not Reportable 10/03/20 09:00 Pelger-Huet Anomaly Not Reportable 10/03/20 09:00 Ester Rods Not Reportable 10/03/20 09:00 Platelet Estimate Consistent w auto 10/03/20 09:00 Clumped Platelets Not Reportable 10/03/20 09:00 Plt Clumps, EDTA Not Reportable 10/03/20 09:00 Large Platelets Few 10/03/20 09:00 Giant Platelets Not Reportable 10/03/20 09:00 Platelet Satelliting Not Reportable 10/03/20 09:00 Plt Morphology Comment Not Reportable 10/03/20 09:00 RBC Morphology Not Reportable 10/03/20 09:00 Dimorphic RBCs Not Reportable 10/03/20 09:00 Polychromasia Few 10/03/20 09:00 Hypochromasia Not Reportable 10/03/20 09:00 Poikilocytosis Not Reportable 10/03/20 09:00 Anisocytosis Not Reportable 10/03/20 09:00 Microcytosis Not Reportable 10/03/20 09:00 Macrocytosis Not Reportable 10/03/20 09:00 Spherocytes Not Reportable 10/03/20 09:00 Pappenheimer Bodies Not Reportable 10/03/20 09:00 Sickle Cells Not Reportable 10/03/20 09:00 Target Cells Not Reportable 10/03/20 09:00 Tear Drop Cells Few 10/03/20 09:00 Ovalocytes Not Reportable 10/03/20 09:00 Helmet Cells Not Reportable 10/03/20 09:00 Burk-Laie Bodies Not Reportable 10/03/20 09:00 [place] Rings Not Reportable 10/03/20 09:00 Antoine Cells Not Reportable 10/03/20 09:00 Bite Cells Not Reportable 10/03/20 09:00 Crenated Cell Not Reportable 10/03/20 09:00 Elliptocytes Few 10/03/20 09:00 Acanthocytes (Spur) Not Reportable 10/03/20 09:00 Rouleaux Not Reportable 10/03/20 09:00 Hemoglobin C Crystals Not Reportable 10/03/20 09:00 Schistocytes Not Reportable 10/03/20 09:00 Malaria parasites Not Reportable 10/03/20 09:00 Sharad Bodies Not Reportable 10/03/20 09:00 Hem Pathologist Commnt No 10/03/20 09:00 PT 13.6 Sec. (12.2-14.9) 10/04/20 10:00 INR 1.06 (0.87-1.13) 10/04/20 10:00 APTT 31.6 Sec. (24.2-36.6) 10/03/20 00:40 Fibrinogen 336 mg/dl (211-480) 10/04/20 10:00 D-Dimer > 60817 ng/mlDDU (0-234) H 10/04/20 10:00 ABG pH 7.422 (7.320-7.450) 10/04/20 03:53 POC ABG pCO2 41.6 mmHg (32.0-48.0) 10/04/20 03:53 ABG pCO2 53.6 mm Hg 10/03/20 11:50 POC ABG pO2 110.6 mmHg (83-108) H 10/04/20 03:53 ABG pO2 89.3 mm Hg (80.0-90.0) 10/03/20 11:50 POC ABG HCO3 26.5 10/04/20 03:53 ABG HCO3 22.7 mmol/L (20.0-26.0) 10/03/20 11:50 ABG O2 Saturation 96.7 % (95.0-99.0) 10/03/20 11:50 ABG O2 Content 10.0 (0.0-44) 10/03/20 11:50 POC ABG Base Excess 1.9 10/04/20 03:53 ABG Base Excess -4.5 mmol/L (-2.0-3.0) L 10/03/20 11:50 ABG Hemoglobin 6.7 (12.0-17.5) L 10/04/20 03:53 ABG Carboxyhemoglobin 1.0 % (0.0-5.0) 10/03/20 11:50 ABG Methemoglobin 0.6 % (0.0-1.5) 10/03/20 11:50 ABG Sodium 132.0 mmol/L (136.0-145.0) L 10/04/20 03:53 ABG Potassium 3.6 mmol/L (3.40-4.50) 10/04/20 03:53 ABG Chloride 101.0 mmol/L (98-107) 10/04/20 03:53 ABG Glucose 111 mg/dL (65-95) H 10/04/20 03:53 VBG pH 6.949 (7.320-7.420) L* 10/02/20 Unknown Oxyhemoglobin 95.2 % (95.0-99.0) 10/03/20 11:50 FiO2 100.0 10/04/20 03:53 Sodium 134 mmol/L (137-145) L D 10/04/20 10:00 Potassium 3.8 mmol/L (3.6-5.0) 10/04/20 10:00 Chloride 97.6 mmol/L (98-107) L 10/04/20 10:00 Carbon Dioxide 29 mmol/L (22-30) 10/04/20 10:00 Anion Gap 11 mmol/L 10/04/20 10:00 BUN 17 mg/dL (7-17) 10/04/20 10:00 Creatinine 1.7 mg/dL (0.6-1.2) H 10/04/20 10:00 Estimated GFR 42 ml/min 10/04/20 10:00 BUN/Creatinine Ratio 10 % 10/04/20 10:00 Glucose 100 mg/dL (65-100) 10/04/20 10:00 POC Glucose 89 mg/dL (70-105) 10/04/20 11:44 Lactic Acid 3.90 mmol/L (0.7-2.0) H* 10/04/20 10:14 Uric Acid 7.5 mg/dL (3.5-7.6) 10/02/20 13:05 Calcium 6.3 mg/dL (8.4-10.2) L 10/04/20 10:00 Total Bilirubin 0.50 mg/dL (0.1-1.2) 10/04/20 10:00 AST 203 units/L (5-40) H 10/04/20 10:00 ALT 81 units/L (7-56) H 10/04/20 10:00 Alkaline Phosphatase 59 units/L (35-129) 10/04/20 10:00 Lactate Dehydrogenase 769 units/L (91-180) H 10/02/20 13:05 NT-Pro-B Natriuret Pep 2788 pg/mL (0-450) H 10/04/20 10:00 Total Protein 3.9 g/dL (6.3-8.2) L 10/04/20 10:00 Albumin 2.3 g/dL (3.9-5) L 10/04/20 10:00 Albumin/Globulin Ratio 1.4 % 10/04/20 10:00 Procalcitonin 26.21 ng/mL (<0.15) 10/04/20 10:00 Arterial Blood Glucose 111 mg/dL (65-95) H 10/04/20 03:53 Arterial Blood Ionized Calcium 3.5 mg/dL (4.6-5.3) L 10/04/20 03:53 Blood Type O POSITIVE 10/02/20 12:50 Antibody Screen Negative 10/02/20 12:50 Crossmatch See Detail 10/02/20 12:50 - Diagnostic Impressions Diagnostic Impressions: Echocardiogram 10/03/20 13:42 Transthoracic Echocardiogram Indication: S/P Cardiac Arrest R/O Cardiomyopathy BP: 133/71 Conclusions *Global left ventricular systolic function is normal. *The estimated ejection fraction is 60-65%. *There is trace of mitral regurgitation. *The right 0heart chambers are both slightly dilated. *There is mild tricuspid regurgitation. *There is mild-moderate pulmonary hypertension. *The right ventricular systolic pressure is calculated at 44 mmHg. *The study quality is technically difficult. Findings Procedure Info: The study quality is technically difficult. The study is technically limited due to patient body habitus. The study was technically limited due to the patient's inability to lay in the left lateral decubitus position. Left Ventricle: The left ventricular chamber size is normal. There is no left ventricular hypertrophy. Global left ventricular systolic function is normal. The estimated ejection fraction is 60-65%. Left Atrium: The left atrial chamber size is normal. Right Ventricle: The right ventricle is slightly dilated. Right Atrium: The right atrium is mildly dilated. Aortic Valve: The aortic valve leaflets are mildly thickened. There is no evidence of aortic regurgitation. There is no evidence of aortic stenosis. Mitral Valve: The mitral valve leaflets are mildly thickened. There is trace of mitral regurgitation. There is no evidence of mitral stenosis. Tricuspid Valve: There is mild tricuspid regurgitation. The right ventricular systolic pressure is calculated at 44 mmHg. There is evidence of mild pulmonary hypertension. Pulmonic Valve: There is trace pulmonic regurgitation. Pericardium: There is no pericardial effusion. Aorta: There is no dilatation of the ascending aorta. There is no dilatation of the aortic root. Venous: The inferior vena cava is dilated. Measurements Chambers 2D Name Value Normal Range IVSd (2D) 1 cm (0.6 - 1.1) LVPWd (2D) 1.01 cm (0.6 - 1.1) LVIDd (2D) 4.58 cm (3.7 - 5.6) LVIDs (2D) 3.17 cm (2 - 3.8) LV FS (2D) 30.93 % - EF Teichholz (2D) 58.66 % - Ao root diameter (2D) 2.94 cm (2 - 3.7) Volumes/Mass Name Value Normal Range LA ESV SP 4CH (A/L) 72.82 ml - LA ESV SP 2CH (A/L) 66.86 ml - LA ESV BP (A/L) 74.49 ml - LA ESV SP 4CH (MOD) 71.03 ml - LA ESV SP 2CH (MOD) 64.3 ml - LV EDV SP 4CH (MOD) 98.82 ml - LV ESV SP 4CH (MOD) 24.8 ml - EF SP 4CH (MOD) 74.9 % - LV EDV SP 2CH (MOD) 86.1 ml - LV ESV SP 2CH (MOD) 36.93 ml - EF SP 2CH (MOD) 57.11 % - LV EDV BP 94.4 ml - LV ESV BP 32.66 ml - BP EF (MOD) 65.4 % - Diastolic/Systolic Function Name Value Normal Range MV E-wave Vmax 1.04 m/sec - MV deceleration time 160.46 msec - MV A-wave Vmax 0.92 m/sec - MV E:A ratio 1.14 ratio - Aortic Valve Name Value Normal Range AV Vmax 2.12 m/sec - AV VTI 22.37 cm - AV peak gradient 17.95 mmHg - AV mean gradient 7.29 mmHg - LVOT diameter 2.01 cm - LVOT Vmax 1.8 m/sec - LVOT VTI 27.17 cm - LVOT peak gradient 12.91 mmHg - LVOT mean gradient 6.83 mmHg - SV LVOT 86.42 ml - ANITA (continuity Vmax) 2.7 cm2 - ANITA (continuity VTI) 3.86 cm2 - Ascending Ao 3.18 cm - Tricuspid Valve Name Value Normal Range TV E-wave Vmax 0.88 m/sec - TR Vmax 3.01 m/sec - TR peak gradient 36.27 mmHg - RAP 8 mmHg - RVSP 44 mmHg - IVC diameter 2.65 cm (1.2 - 2.3) Pulmonic Valve/Qp:Qs Name Value Normal Range PV Vmax 1.22 m/sec - PV peak gradient 5.91 mmHg - RVOT Vmax 0.87 m/sec - RVOT VTI 13.32 cm - RVOT peak gradient 3 mmHg - PV acceleration time 110.37 msec - [place]/IV: Voiding Method Indwelling Catheter IV Catheter Type [Left CVL Internal Jugular] IV Catheter Type [Left Hand] Peripheral IV IV Catheter Type [Left Peripheral IV Antecubital] Active Medications - Current Medications Current Medications: Generic Name Dose Route Start Last Admin Trade Name Freq PRN Reason Stop Dose Admin Albumin Human 25 gm 10/03/20 14:00 10/04/20 13:02 Albumin Human 25% (25 Gm/100 Ml) Inj IV 25 gm Q8HR ERINN Administration Fentanyl 50 mcg 10/03/20 14:57 10/04/20 12:50 Fentanyl 100 Mcg/2 Ml Inj IV 50 mcg Q2H PRN Administration agitation/sedation Hydrophilic Ointment 1 applic 10/04/20 06:55 Lip Therapy Vaseline TP Q2HR PRN Dry Lips Oxytocin/Sodium Chloride 30 units in 500 mls @ 0 mls/hr 10/02/20 17:00 Pitocin/Ns 30 Unit/500ml IV TITR ERINN Protocol As Directed Vasopressin 20 unit/ Sodium 101 mls @ 9.09 mls/hr 10/02/20 17:00 10/04/20 10:02 Chloride IV 0.03 units/min TITR ERINN 9.09 mls/hr Administration 0.03 UNITS/MIN Phenylephrine HCl 100 mg/ 100 mls @ 3 mls/hr 10/02/20 16:30 10/03/20 08:35 Sodium Chloride IV 380 mcg/min TITR ERINN 22.8 mls/hr Administration Protocol 50 MCG/MIN Epinephrine 8 mg/ Sodium 250 mls @ 3.75 mls/hr 10/02/20 18:00 10/04/20 11:06 Chloride IV 0 mcg/min TITR ERINN 0 mls/hr Titration Protocol 2 MCG/MIN Lactated Ringer's 1,000 mls @ 999 mls/hr 10/02/20 18:45 10/03/20 07:50 Lactated Ringers IV 10/07/20 19:46 Infused DIRECT ERINN Infusion Norepinephrine 8 mg/ Sodium 250 mls @ 3.75 mls/hr 10/03/20 01:00 10/04/20 0 2:06 Chloride IV 0 mcg/min TITR ERINN 0 mls/hr Titration Protocol 2 MCG/MIN Cefepime HCl 1 gm in 100 mls @ 200 mls/hr 10/03/20 13:00 10/04/20 13:02 Cefepime/Ns 1 Gm/100 Ml IV 200 mls/hr Q8H ERINN Administration Protocol Vancomycin HCl 2,000 mg/ 540 mls @ 250 mls/hr 10/03/20 12:30 10/04/20 12:27 Sodium Chloride IV 250 mls/hr Q24H ERINN Administration Fentanyl Citrate 2,000 mcg in 100 mls @ 6.235 mls/hr 10/04/20 07:00 Fentanyl Drip Premix IV TITR ERINN Protocol 1 MCG/KG/HR Sodium Chloride 500 mls @ 0 mls/hr 10/04/20 08:02 Nacl 0.9% 500 Ml IV 10/05/20 08:01 ONCE NR As Directed Dextrose 1,000 mls @ 42 mls/hr 10/04/20 13:00 10/04/20 12:58 D10w IV 42 mls/hr DIRECT ERINN Administration Lorazepam 2 mg 10/02/20 22:05 10/04/20 06:52 Lorazepam 2 Mg/Ml Vial IV 2 mg Q2H PRN Administration Seizures Multi-Ingred Cream/Lotion/Oil/Oint 1 applic 10/04/20 06:55 Mineral Oil/Petrolatum, White Ophth Oint 3.5 Gm OU Q4HR PRN Dry Eye(s) Nutrition/Malnutrition Assess - Dietary Evaluation Nutrition/Malnutrition Findings: Nutrition Notes Start: 10/04/20 11:13 Freq: Status: Active Protocol: Document 10/04/20 11:13 LP (Rec: 10/04/20 11:25 LP [id number]) Nutrition Notes Need for Assessment generated from: MD Order Initial or Follow up Assessment Current Diagnosis Acute Kidney Injury, Respiratory Failure Other Pertinent Diagnosis Cardiac arrest Current Diet NPO Labs/Tests Cr 1.7 BG 216 Pertinent Medications Reviewed Height 5 ft 8 in Weight 124.7 kg Pep Body Weight (kg) 63.63 BMI 41.8 Weight Status Morbidly Obese Subjective/Other Information Consult for evaluation nutrition intakes. Pt on vent. Pt had emergency . Burn Absent Trauma Absent GI Symptoms None Food Allergy Yes Current % PO Negligible Minimum of two criteria No physical signs of malnutrition #1 Nutrition Diagnosis Inadequate oral intake Etiology ARF As Evidenced by Signs and Symptoms Pt unable to consume PO due to vent Is patient on ventilator? Yes Is Patient Ambulatory and/or Out of Bed No REE-([facility]-confined to bed) 2408.172 Kcal/Kg value to use for calculation 15 Approximate Energy Requirements Using 1871 kcal/Kg Calculation Used for Recommendations Kcal/kg Additional Notes Protein needs are up to 159g ( up to 2.5g/kg) Fluid needs are 1ml/kcal Nutrition Intervention Change Diet Order: TF consult or extubation Nutrition Support: once consulted Vital 1.2 at 65ml/hr Flush with 100ml q4h Kcal 1,872 Protein (gm) 117 Fluid (mL) 1,265 Goal #1 TF consult or extubation Anticipated Discharge Needs: Unable to determine at this time Follow-Up By: 10/06/20 Additional Comments Follow for TF consult or extubation
[2020-10-04 14:43] LABS: Hematocrit 27.2 % (30.3-42.9); Hemoglobin 9.3 gm/dl (10.1-14.3)
[2020-10-04 15:01] LABS: Calcium 6.3 mg/dL (8.4-10.2)
[2020-10-04] MEDS: fentaNYL DRIP Premix 2,000 MCG/100 ML BAG IV SCH (16:19)
[2020-10-04 18:50] LABS: Basophils % (Auto) 0.1 % (0.0-1.8); Hemoglobin 9.6 gm/dl (10.1-14.3); Lymphocytes # (Auto) 1.3 K/mm3 (1.2-5.4); Lymphocytes % (Auto) 8.6 % (13.4-35.0); Mean Corpuscular HGB Conc 34 % (30-34); Mean Corpuscular Volume 89 fl (79-97); Monocytes # (Auto) 0.9 K/mm3 (0.0-0.8); Monocytes % (Auto) 5.9 % (0.0-7.3); Red Blood Count 3.17 M/mm3 (3.65-5.03); Red Cell Distribution Width 16.9 % (13.2-15.2)
[2020-10-04] MEDS: DEXTROSE 10% IN WATER 1,000 ML IV SCH (19:00)
[2020-10-04 19:10] LABS: Platelet Count 41 K/mm3 (140-440)
[2020-10-05 00:02] LABS: Calcium 6.6 mg/dL (8.4-10.2)
--- NOTE | 2020-10-05 03:52 | XRay Report ---
CHEST 1 VIEW INDICATION: follow up respiratory failure. COMPARISON: 04/07/2020 FINDINGS: SUPPORT DEVICES: Unchanged support devices. HEART: Within normal limits. LUNGS/PLEURA: Persistent moderate patchy multifocal airspace disease. ADDITIONAL FINDINGS: None. IMPRESSION: Unchanged exam Signer Name: Chris Yoder MD Signed: 10/05/2020 3:48 AM Workstation Name: [id number]
[2020-10-05] MEDS: CEFEPIME/NS 1 GM/100 ML 1 GM/100 ML BAG IV SCH (05:18)
[2020-10-05] MEDS: fentaNYL DRIP Premix 2,000 MCG/100 ML BAG IV SCH ×3 (05:20→23:55)
[2020-10-05 05:32] LABS: Basophils # (Auto) 0.1 K/mm3 (0.0-0.1); Basophils % (Auto) 0.5 % (0.0-1.8); Eosinophils # (Auto) 0.1 K/mm3 (0.0-0.4); Eosinophils % (Auto) 0.4 % (0.0-4.3); Hematocrit 29.4 % (30.3-42.9); Hemoglobin 9.9 gm/dl (10.1-14.3); Lymphocytes # (Auto) 1.5 K/mm3 (1.2-5.4); Lymphocytes % (Auto) 8.5 % (13.4-35.0); Mean Corpuscular HGB Conc 34 % (30-34); Mean Corpuscular Volume 88 fl (79-97); Monocytes % (Auto) 5.5 % (0.0-7.3); Red Blood Count 3.34 M/mm3 (3.65-5.03); Red Cell Distribution Width 17.1 % (13.2-15.2)
[2020-10-05 05:36] LABS: ABG Base Excess 3.4 mmol/L (-2.0-3.0); ABG HCO3 27.5 mmol/L (20.0-26.0); ABG Methemoglobin 0.5 % (0.0-1.5); ABG Oxygen Saturation 96.3 % (95.0-99.0); ABG PCO2 39.7 mm Hg; ABG PH 7.458 pH Units (7.350-7.450); ABG PO2 74.3 mm Hg (80.0-90.0)
[2020-10-05 05:37] LABS: Platelet Count 56 K/mm3 (140-440)
[2020-10-05 05:51] LABS: Albumin 2.7 g/dL (3.9-5); Calcium 6.8 mg/dL (8.4-10.2)
[2020-10-05] MEDS: ALBUMIN HUMAN 25% (25 GM/100 ML) INJ IV SCH (05:56)
[2020-10-05] MEDS: DEXTROSE 10% IN WATER 1,000 ML IV SCH ×2 (07:43→19:50)
--- NOTE | 2020-10-05 08:25 | Progress Note ---
Assessment and Plan A: POD#3 s/p repeat section at 36 wks secondary to Eclampsia and Cardiac Arrest with Resuscitation POD#3 s/p supracervical abdominal hysterectomy secondary to Uterine [place]y, Hemorrhage and Disseminated Intravascular Coagulation (DIC) s/p multiple transfusions of blood products Acute Kidney Injury P: Continue supportive care as recommended by Pulmonology/Critical Care, Internal Medicine, Nephrology and Hematology-Oncology recommendations No objection to tube feeds Closely monitor clinical status Subjective - Subjective Date of service: 10/05/20 Principal diagnosis: Eclampsia/HELLP Syndrome, ADOLPH, DIC; s/p , s/p supracervical hyst Interval history: All senior professional services consultant recommendations noted and greatly appreciated. Pt remains intubated and sedated. Currently holding BP without pressors. Bowel movement yesterday. Art drainage continues. Dressing changed last night. RN mentions hypoglycemia and request for tube feeds. Patient reports: bowel movement, no appetite normal, no voiding normally (chowdhury in place ), no ambulating normally (SCDs in place ) [place]: in NICU Objective - Vital Signs Latest vital signs: Vital Signs Temp Pulse Pulse Resp BP Pulse Ox 10/05/20 08:00 96 H 25 H 138/89 98 10/05/20 07:45 96 H 24 138/85 100 10/05/20 07:30 97 H 23 139/83 99 10/05/20 07:15 98 H 27 H 146/93 97 10/05/20 07:00 98 H 26 H 140/86 100 10/05/20 06:45 98 H 30 H 132/90 97 10/05/20 06:30 96 H 25 H 135/87 99 10/05/20 06:15 98 H 25 H 153/96 96 10/05/20 06:00 98 H 24 144/87 99 10/05/20 05:45 102 H 27 H 147/94 97 10/05/20 05:30 97 H 27 H 138/87 98 10/05/20 05:15 98 H 27 H 138/85 97 10/05/20 05:00 98 H 24 138/85 98 10/05/20 04:45 98 H 26 H 134/87 99 10/05/20 04:30 99 H 28 H 139/94 99 10/05/20 04:28 100 H 121/81 98 10/05/20 04:15 98 H 25 H 121/81 100 10/05/20 04:11 97 H 10/05/20 04:01 97 H 29 H 146/89 98 10/05/20 04:00 98.3 F 10/05/20 03:45 97 H 32 H 146/89 96 10/05/20 03:31 99 H 18 178/114 96 10/05/20 03:15 99 H 25 H 138/86 98 10/05/20 03:00 99 H 25 H 146/89 99 10/05/20 02:45 100 H 26 H 148/88 99 10/05/20 02:30 102 H 26 H 161/91 97 10/05/20 02:15 99 H 25 H 151/86 99 10/05/20 02:00 99 H 26 H 151/92 99 10/05/20 01:45 100 H 26 H 145/91 99 10/05/20 01:30 100 H 28 H 156/94 98 10/05/20 01:15 101 H 27 H 147/89 99 10/05/20 01:00 101 H 26 H 148/93 99 10/05/20 00:45 102 H 25 H 148/88 100 10/05/20 00:30 106 H 24 151/92 99 10/05/20 00:15 100 H 25 H 153/82 100 10/05/20 00:04 103 H 147/88 96 10/05/20 00:01 102 H 10/05/20 00:00 98.6 F 100 H 26 H 147/88 99 10/04/20 23:45 102 H 28 H 151/90 98 10/04/20 23:30 102 H 27 H 147/93 98 10/04/20 23:15 102 H 31 H 158/98 98 10/04/20 23:00 99 H 28 H 153/94 98 10/04/20 22:45 101 H 27 H 147/87 98 10/04/20 22:30 103 H 26 H 153/90 98 10/04/20 22:15 100 H 26 H 146/91 98 10/04/20 22:13 100 H 27 H 133/88 98 10/04/20 22:00 101 H 25 H 133/88 99 10/04/20 21:45 105 H 26 H 140/88 99 10/04/20 21:30 101 H 25 H 139/85 99 12/20/20 21:15 116 H 27 H 137/85 100 2020 21:00 105 H 27 H 136/83 99 2020 20:45 100 H 26 H 129/82 99 2020 20:30 101 H 27 H 136/83 100 2020 20:15 105 H 28 H 133/81 100 20/20 20:02 103 H 20 20:00 100.1 F H 107 H 22 141/84 100 20 19:45 108 H 27 H 132/77 100 2020 19:30 103 H 27 H 133/81 100 2020 19:15 107 H 28 H 127/75 100 20 19:00 107 H 29 H 128/74 100 20 18:45 102 H 32 H 139/83 99 20 18:30 108 H 29 H 149/91 100 10/04/20 18:15 105 H 31 H 128/76 99 10/04/20 18:00 99.8 F H 104 H 32 H 132/74 99 20 17:45 27 H 166/86 93 2020 17:31 107 H 29 H 160/99 99 10/04/20 17:15 101 H 23 143/105 99 10/04/20 17:10 106 H 130/75 100 20 17:00 113 H 25 H 130/75 100 2020 16:45 116 H 28 H 140/84 100 20 16:30 111 H 31 H 163/86 99 20 16:15 104 H 31 H 172/88 98 2020 16:09 100.4 F H 10/04/20 16:00 101.3 F H 111 H 101 H 31 H 166/92 99 20 15:45 110 H 30 H 153/88 98 2020 15:31 111 H 29 H 137/76 97 2020 15:15 115 H 25 H 138/87 92 2020 15:00 117 H 36 H 138/87 99 20 14:54 100.4 F H 20 14:45 117 H 36 H 151/83 97 12/20/20 14:30 122 H 36 H 146/86 99 10/04/20 14:15 127 H 17 149/80 98 10/04/20 14:00 119 H 31 H 152/80 98 10/04/20 13:45 121 H 30 H 155/77 100 10/04/20 13:30 113 H 30 H 161/93 98 10/04/20 13:26 100.5 F H 10/04/20 13:15 104 H 30 H 180/98 96 10/04/20 13:10 105 H 152/83 97 10/04/20 13:00 108 H 29 H 152/83 95 10/04/20 12:45 103 H 37 H 169/89 93 10/04/20 12:30 102 H 39 H 158/105 95 10/04/20 12:15 101 H 30 H 143/80 100 10/04/20 12:00 100.8 F H 108 H 104 H 36 H 165/87 99 10/04/20 11:45 107 H 29 H 129/69 98 10/04/20 11:40 100.8 F H 10/04/20 11:36 100.6 F H 10/04/20 11:30 107 H 31 H 141/73 100 10/04/20 11:15 106 H 31 H 115/59 99 10/04/20 11:01 113 H 29 H 123/54 98 10/04/20 10:45 110 H 40 H 163/96 96 10/04/20 10:35 100.4 F H 10/04/20 10:30 102 H 31 H 124/74 100 10/04/20 10:15 107 H 33 H 124/72 98 10/04/20 10:00 112 H 33 H 125/80 99 10/04/20 09:45 112 H 12 139/95 99 10/04/20 09:30 108 H 34 H 133/76 99 10/04/20 09:20 28 H 10/04/20 09:15 108 H 33 H 129/72 98 10/04/20 09:01 118 H 25 H 127/91 100 10/04/20 08:54 114 H 114/66 100 10/04/20 08:45 106 H 32 H 114/66 100 10/04/20 08:31 115 H 30 H 140/62 99 Intake and Output 10/04/20 10/05/2010/05/20 22:59 06:59 14:59 Intake Total 835.15 579.909 143.75 Output Total 1825 1680 425 Balance -989.85 -1100.091 -281.25 Intake: IV 585.15 579.909 143.75 CEFEPIME/NS 1 GM/100 ML 1 100 gm In 100 ml @ 200 mls/ hr IV Q8H ERINN Rx#: [id number] D10w 1,000 ml @ 42 mls/hr 286.4 IV DIRECT ERINN Rx#: [id number] D10w 1,000 ml @ 75 mls/hr 198.75 498.75 143.75 IV DIRECT ERINN Rx#: [id number] fentaNYL DRIP Premix 2, 81.159 000 mcg In 100 ml @ 1 MCG /KG/HR 6.235 mls/hr IV TITR ERINN Rx#:[id number] Intake, Free Water 0 0 Blood Product 250 Leukoreduced Red Blood 250 Cells Unit [id number] Output: Gastric Drainage 50 Drainage 650 680 125 Left 650 680 125 Urine 1175 950 300 Indwelling Catheter 1175 950 300 Other: Total, Output Amount 520 220 425 Voiding Method Indwelling Catheter Indwelling Catheter # Bowel Movements 1 - Exam Breasts: Present: deferred Abdomen: Present: soft (obese ), other (Art drain with sanguinous output in bulb ) Extremities: Present: edema Incision: Present: dressed (clean and dry presently ) - Labs Labs: Abnormal lab results 10/02/20 10/04/20 10/04/20 Range/Units 12:50 10:00 10:00 WBC 14.6 H (4.5-11.0) K/mm3 RBC 2.57 L (3.65-5.03) M/mm3 Hgb 7.6 L (10.1-14.3) gm/dl Hct 22.5 L (30.3-42.9) % RDW 15.8 H (13.2-15.2) % Plt Count 38 L (140-440) K/mm3 Lymph % (Auto) 7.7 L (13.4-35.0) % Lymph # (Auto) 1.1 L (1.2-5.4) K/mm3 [place] # (Auto) 0.9 H (0.0-0.8) K/mm3 Seg Neutrophils % 85.6 H (40.0-70.0) % Seg Neutrophils # 12.5 H (1.8-7.7) K/mm3 D-Dimer (0-234) ng/mlDDU ABG pH (7.350-7.450) pH Units ABG pO2 (80.0-90.0) mm Hg ABG HCO3 (20.0-26.0) mmol/L ABG Base Excess (-2.0-3.0) mmol/L ABG Hemoglobin (12.0-16.0) gm/dl Oxyhemoglobin (95.0-99.0) % Sodium 134 L D (137-145) mmol/L Chloride 97.6 L (98-107) mmol/L BUN (7-17) mg/dL Creatinine 1.7 H (0.6-1.2) mg/dL Lactic Acid (0.7-2.0) mmol/L Calcium 6.3 L (8.4-10.2) mg/dL AST 203 H (5-40) units/L ALT 81 H (7-56) units/L NT-Pro-B Natriuret Pep (0-450) pg/mL Total Protein 3.9 L (6.3-8.2) g/dL Albumin 2.3 L (3.9-5) g/dL Crossmatch See Detail 10/04/20 10/04/20 10/04/20 Range/Units 10:00 10:00 10:14 WBC (4.5-11.0) K/mm3 RBC (3.65-5.03) M/mm3 Hgb (10.1-14.3) gm/dl Hct (30.3-42.9) % RDW (13.2-15.2) % Plt Count (140-440) K/mm3 Lymph % (Auto) (13.4-35.0) % Lymph # (Auto) (1.2-5.4) K/mm3 [place] # (Auto) (0.0-0.8) K/mm3 Seg Neutrophils % (40.0-70.0) % Seg Neutrophils # (1.8-7.7) K/mm3 D-Dimer > 01698 H (0-234) ng/mlDDU ABG pH (7.350-7.450) pH Units ABG pO2 (80.0-90.0) mm Hg ABG HCO3 (20.0-26.0) mmol/L ABG Base Excess (-2.0-3.0) mmol/L ABG Hemoglobin (12.0-16.0) gm/dl Oxyhemoglobin (95.0-99.0) % Sodium (137-145) mmol/L Chloride (98-107) mmol/L BUN (7-17) mg/dL Creatinine (0.6-1.2) mg/dL Lactic Acid 3.90 H* (0.7-2.0) mmol/L Calcium (8.4-10.2) mg/dL AST (5-40) units/L ALT (7-56) units/L NT-Pro-B Natriuret Pep 2788 H (0-450) pg/mL Total Protein (6.3-8.2) g/dL Albumin (3.9-5) g/dL Crossmatch 10/04/20 10/04/20 10/04/20 Range/Units 14:00 14:00 18:00 WBC 15.7 H (4.5-11.0) K/mm3 RBC 3.17 L (3.65-5.03) M/mm3 Hgb 9.3 L 9.6 L (10.1-14.3) gm/dl Hct 27.2 L 28.0 L (30.3-42.9) % RDW 16.9 H (13.2-15.2) % Plt Count 41 L (140-440) K/mm3 Lymph % (Auto) 8.6 L (13.4-35.0) % Lymph # (Auto) (1.2-5.4) K/mm3 [place] # (Auto) 0.9 H (0.0-0.8) K/mm3 Seg Neutrophils % 85.4 H (40.0-70.0) % Seg Neutrophils # 13.4 H (1.8-7.7) K/mm3 D-Dimer (0-234) ng/mlDDU ABG pH (7.350-7.450) pH Units ABG pO2 (80.0-90.0) mm Hg ABG HCO3 (20.0-26.0) mmol/L ABG Base Excess (-2.0-3.0) mmol/L ABG Hemoglobin (12.0-16.0) gm/dl Oxyhemoglobin (95.0-99.0) % Sodium 133 L (137-145) mmol/L Chloride 96.4 L (98-107) mmol/L BUN 18 H (7-17) mg/dL Creatinine 1.7 H (0.6-1.2) mg/dL Lactic Acid (0.7-2.0) mmol/L Calcium 6.3 L (8.4-10.2) mg/dL AST (5-40) units/L ALT (7-56) units/L NT-Pro-B Natriuret Pep (0-450) pg/mL Total Protein (6.3-8.2) g/dL Albumin (3.9-5) g/dL Crossmatch 10/04/20 10/04/20 10/05/20 Range/Units 18:00 22:00 05:00 WBC 17.6 H (4.5-11.0) K/mm3 RBC 3.34 L (3.65-5.03) M/mm3 Hgb 9.9 L (10.1-14.3) gm/dl Hct 29.4 L (30.3-42.9) % RDW 17.1 H (13.2-15.2) % Plt Count 56 L (140-440) K/mm3 Lymph % (Auto) 8.5 L (13.4-35.0) % Lymph # (Auto) (1.2-5.4) K/mm3 [place] # (Auto) 1.0 H (0.0-0.8) K/mm3 Seg Neutrophils % 85.1 H (40.0-70.0) % Seg Neutrophils # 15.0 H (1.8-7.7) K/mm3 D-Dimer (0-234) ng/mlDDU ABG pH (7.350-7.450) pH Units ABG pO2 (80.0-90.0) mm Hg ABG HCO3 (20.0-26.0) mmol/L ABG Base Excess (-2.0-3.0) mmol/L ABG Hemoglobin (12.0-16.0) gm/dl Oxyhemoglobin (95.0-99.0) % Sodium 136 L (137-145) mmol/L Chloride (98-107) mmol/L BUN 18 H (7-17) mg/dL Creatinine 1.7 H (0.6-1.2) mg/dL Lactic Acid 2.30 H* (0.7-2.0) mmol/L Calcium 6.6 L (8.4-10.2) mg/dL AST (5-40) units/L ALT (7-56) units/L NT-Pro-B Natriuret Pep (0-450) pg/mL Total Protein (6.3-8.2) g/dL Albumin (3.9-5) g/dL Crossmatch 10/05/20 10/05/20 Range/Units 05:00 05:03 WBC (4.5-11.0) K/mm3 RBC (3.65-5.03) M/mm3 Hgb (10.1-14.3) gm/dl Hct (30.3-42.9) % RDW (13.2-15.2) % Plt Count (140-440) K/mm3 Lymph % (Auto) (13.4-35.0) % Lymph # (Auto) (1.2-5.4) K/mm3 [place] # (Auto) (0.0-0.8) K/mm3 Seg Neutrophils % (40.0-70.0) % Seg Neutrophils # (1.8-7.7) K/mm3 D-Dimer (0-234) ng/mlDDU ABG pH 7.458 H (7.350-7.450) pH Units ABG pO2 74.3 L (80.0-90.0) mm Hg ABG HCO3 27.5 H (20.0-26.0) mmol/L ABG Base Excess 3.4 H (-2.0-3.0) mmol/L ABG Hemoglobin 10.0 L (12.0-16.0) gm/dl Oxyhemoglobin 94.9 L (95.0-99.0) % Sodium (137-145) mmol/L Chloride (98-107) mmol/L BUN 19 H (7-17) mg/dL Creatinine 1.8 H (0.6-1.2) mg/dL Lactic Acid (0.7-2.0) mmol/L Calcium 6.8 L (8.4-10.2) mg/dL AST 225 H (5-40) units/L ALT 85 H (7-56) units/L NT-Pro-B Natriuret Pep (0-450) pg/mL Total Protein 4.5 L (6.3-8.2) g/dL Albumin 2.7 L (3.9-5) g/dL Crossmatch
--- NOTE | 2020-10-05 09:23 | Hem/Onc Progress Note ---
Subjective Interval history: heme data review 30yo obese AA woman with 36wk gestation, presented yesterday morning with seizure-->hypoxia-->urgent C section-->hysterectomy developed severe anemia-->received RBC, plt, FFP, cryo was on max pressors-->now off pressors still on vent, on sedation still much fluid from [facility] per notes blood counts have been stable 2 days, coags normal now DATA reviewed below IMPRESSION: recent presumed ecclampsia recent severe anemia due to bleeding and "DIC" recent severe low fibrinogen-improved still critically ill now, on vent but improving per notes ADOLPH Creat 1.8 PLAN: ni transfusions planned today contact me with questions Active Medications Famotidine (Famotidine 20 Mg/2 Ml Inj) 20 mg IV BID ERINN Fentanyl (Fentanyl 100 Mcg/2 Ml Inj) 50 mcg IV Q2H PRN PRN Reason: agitation/sedation Last Admin: 10/04/20 15:21 Dose: 50 mcg Documented by: Cefepime HCl (Cefepime/Ns 1 Gm/100 Ml) 1 gm in 100 mls @ 200 mls/hr IV Q8H ERINN; Protocol Last Admin: 10/05/20 05:18 Dose: 200 mls/hr Documented by: Vancomycin HCl 2,000 mg/ (Sodium Chloride) 540 mls @ 250 mls/hr IV Q24H ERINN Last Admin: 10/04/20 12:27 Dose: 250 mls/hr Documented by: Laboratory Last Values WBC 17.6 K/mm3 (4.5-11.0) H 10/05/20 05:00 Hgb 9.9 gm/dl (10.1-14.3) L 10/05/20 05:00 Hct 29.4 % (30.3-42.9) L 10/05/20 05:00 Plt Count 56 K/mm3 (140-440) L 10/05/20 05:00 PT 13.0 Sec. (12.2-14.9) 10/05/20 05:00 INR 1.00 (0.87-1.13) 10/05/20 05:00 APTT 31.6 Sec. (24.2-36.6) 10/03/20 00:40 Fibrinogen 336 mg/dl (211-480) 10/04/20 10:00 D-Dimer > 09368 ng/mlDDU (0-234) H 10/04/20 10:00 Creatinine 1.8 mg/dL (0.6-1.2) H 10/05/20 05:00 AST 225 units/L (5-40) H 10/05/20 05:00 ALT 85 units/L (7-56) H 10/05/20 05:00 Alkaline Phosphatase 71 units/L (35-129) 10/05/20 05:00 Crossmatch See Detail 10/02/20 12:50 Objective - Constitutional Vitals: Last Vital Signs Temp 100.0 F H 10/05/20 08:00 Pulse 98 H 10/05/20 08:29 Resp 25 H 10/05/20 08:00 BP 158/94 10/05/20 08:29 Pulse Ox 98 10/05/20 08:29 - Labs Lab Results: Laboratory Results - last 24 hr 10/02/20 10/04/20 10/04/20 12:50 10:00 10:00 WBC 14.6 H RBC 2.57 L Hgb 7.6 L Hct 22.5 L MCV 88 MCH 30 MCHC 34 RDW 15.8 H Plt Count 38 L Lymph % (Auto) 7.7 L [place] % (Auto) 6.5 Eos % (Auto) 0.0 Baso % (Auto) 0.2 Lymph # (Auto) 1.1 L [place] # (Auto) 0.9 H Eos # (Auto) 0.0 Baso # (Auto) 0.0 Seg Neutrophils % 85.6 H Seg Neutrophils # 12.5 H PT INR Fibrinogen D-Dimer ABG pH ABG pCO2 ABG pO2 ABG HCO3 ABG O2 Saturation ABG O2 Content ABG Base Excess ABG Hemoglobin ABG Carboxyhemoglobin ABG Methemoglobin Oxyhemoglobin FiO2 Sodium 134 L D Potassium 3.8 Chloride 97.6 L Carbon Dioxide 29 Anion Gap 11 BUN 17 Creatinine 1.7 H Estimated GFR 42 BUN/Creatinine Ratio 10 Glucose 100 POC Glucose Lactic Acid Calcium 6.3 L Total Bilirubin 0.50 AST 203 H ALT 81 H Alkaline Phosphatase 59 NT-Pro-B Natriuret Pep Total Protein 3.9 L Albumin 2.3 L Albumin/Globulin Ratio 1.4 Procalcitonin Blood Type O POSITIVE Antibody Screen Negative Crossmatch See Detail 10/04/20 10/04/20 10/04/20 10:00 10:00 10:00 WBC RBC Hgb Hct MCV MCH MCHC RDW Plt Count Lymph % (Auto) [place] % (Auto) Eos % (Auto) Baso % (Auto) Lymph # (Auto) [place] # (Auto) Eos # (Auto) Baso # (Auto) Seg Neutrophils % Seg Neutrophils # PT 13.6 INR 1.06 Fibrinogen 336 D-Dimer > 25169 H ABG pH ABG pCO2 ABG pO2 ABG HCO3 ABG O2 Saturation ABG O2 Content ABG Base Excess ABG Hemoglobin ABG Carboxyhemoglobin ABG Methemoglobin Oxyhemoglobin FiO2 Sodium Potassium Chloride Carbon Dioxide Anion Gap BUN Creatinine Estimated GFR BUN/Creatinine Ratio Glucose POC Glucose Lactic Acid Calcium Total Bilirubin AST ALT Alkaline Phosphatase NT-Pro-B Natriuret Pep 2788 H Total Protein Albumin Albumin/Globulin Ratio Procalcitonin 26.21 Blood Type Antibody Screen Crossmatch 10/04/20 10/04/20 10/04/20 10:14 11:44 14:00 WBC RBC Hgb 9.3 L Hct 27.2 L MCV MCH MCHC RDW Plt Count Lymph % (Auto) [place] % (Auto) Eos % (Auto) Baso % (Auto) Lymph # (Auto) [place] # (Auto) Eos # (Auto) Baso # (Auto) Seg Neutrophils % Seg Neutrophils # PT INR Fibrinogen D-Dimer ABG pH ABG pCO2 ABG pO2 ABG HCO3 ABG O2 Saturation ABG O2 Content ABG Base Excess ABG Hemoglobin ABG Carboxyhemoglobin ABG Methemoglobin Oxyhemoglobin FiO2 Sodium Potassium Chloride Carbon Dioxide Anion Gap BUN Creatinine Estimated GFR BUN/Creatinine Ratio Glucose POC Glucose 89 Lactic Acid 3.90 H* Calcium Total Bilirubin AST ALT Alkaline Phosphatase NT-Pro-B Natriuret Pep Total Protein Albumin Albumin/Globulin Ratio Procalcitonin Blood Type Antibody Screen Crossmatch 10/04/20 10/04/20 10/04/20 14:00 14:15 16:59 WBC RBC Hgb Hct MCV MCH MCHC RDW Plt Count Lymph % (Auto) [place] % (Auto) Eos % (Auto) Baso % (Auto) Lymph # (Auto) [place] # (Auto) Eos # (Auto) Baso # (Auto) Seg Neutrophils % Seg Neutrophils # PT INR Fibrinogen D-Dimer ABG pH ABG pCO2 ABG pO2 ABG HCO3 ABG O2 Saturation ABG O2 Content ABG Base Excess ABG Hemoglobin ABG Carboxyhemoglobin ABG Methemoglobin Oxyhemoglobin FiO2 Sodium 133 L Potassium 3.7 Chloride 96.4 L Carbon Dioxide 29 Anion Gap 11 BUN 18 H Creatinine 1.7 H Estimated GFR 42 BUN/Creatinine Ratio 11 Glucose 98 POC Glucose 92 80 Lactic Acid Calcium 6.3 L Total Bilirubin AST ALT Alkaline Phosphatase NT-Pro-B Natriuret Pep Total Protein Albumin Albumin/Globulin Ratio Procalcitonin Blood Type Antibody Screen Crossmatch 10/04/20 10/04/20 10/04/20 17:53 18:00 18:00 WBC 15.7 H RBC 3.17 L Hgb 9.6 L Hct 28.0 L MCV 89 MCH 30 MCHC 34 RDW 16.9 H Plt Count 41 L Lymph % (Auto) 8.6 L [place] % (Auto) 5.9 Eos % (Auto) 0.0 Baso % (Auto) 0.1 Lymph # (Auto) 1.3 [place] # (Auto) 0.9 H Eos # (Auto) 0.0 Baso # (Auto) 0.0 Seg Neutrophils % 85.4 H Seg Neutrophils # 13.4 H PT INR Fibrinogen D-Dimer ABG pH ABG pCO2 ABG pO2 ABG HCO3 ABG O2 Saturation ABG O2 Content ABG Base Excess ABG Hemoglobin ABG Carboxyhemoglobin ABG Methemoglobin Oxyhemoglobin FiO2 Sodium Potassium Chloride Carbon Dioxide Anion Gap BUN Creatinine Estimated GFR BUN/Creatinine Ratio Glucose POC Glucose 82 Lactic Acid 2.30 H* Calcium Total Bilirubin AST ALT Alkaline Phosphatase NT-Pro-B Natriuret Pep Total Protein Albumin Albumin/Globulin Ratio Procalcitonin Blood Type Antibody Screen Crossmatch 10/04/20 10/04/20 10/04/20 20:05 21:49 22:00 WBC RBC Hgb Hct MCV MCH MCHC RDW Plt Count Lymph % (Auto) [place] % (Auto) Eos % (Auto) Baso % (Auto) Lymph # (Auto) [place] # (Auto) Eos # (Auto) Baso # (Auto) Seg Neutrophils % Seg Neutrophils # PT INR Fibrinogen D-Dimer ABG pH ABG pCO2 ABG pO2 ABG HCO3 ABG O2 Saturation ABG O2 Content ABG Base Excess ABG Hemoglobin ABG Carboxyhemoglobin ABG Methemoglobin Oxyhemoglobin FiO2 Sodium 136 L Potassium 3.8 Chloride 99.5 Carbon Dioxide 27 Anion Gap 13 BUN 18 H Creatinine 1.7 H Estimated GFR 42 BUN/Creatinine Ratio 11 Glucose 78 POC Glucose 86 76 Lactic Acid Calcium 6.6 L Total Bilirubin AST ALT Alkaline Phosphatase NT-Pro-B Natriuret Pep Total Protein Albumin Albumin/Globulin Ratio Procalcitonin Blood Type Antibody Screen Crossmatch 10/04/20 10/04/20 10/05/20 22:00 23:37 01:48 WBC RBC Hgb Hct MCV MCH MCHC RDW Plt Count Lymph % (Auto) [place] % (Auto) Eos % (Auto) Baso % (Auto) Lymph # (Auto) [place] # (Auto) Eos # (Auto) Baso # (Auto) Seg Neutrophils % Seg Neutrophils # PT INR Fibrinogen D-Dimer ABG pH ABG pCO2 ABG pO2 ABG HCO3 ABG O2 Saturation ABG O2 Content ABG Base Excess ABG Hemoglobin ABG Carboxyhemoglobin ABG Methemoglobin Oxyhemoglobin FiO2 Sodium Potassium Chloride Carbon Dioxide Anion Gap BUN Creatinine Estimated GFR BUN/Creatinine Ratio Glucose POC Glucose 74 76 Lactic Acid 1.90 Calcium Total Bilirubin AST ALT Alkaline Phosphatase NT-Pro-B Natriuret Pep Total Protein Albumin Albumin/Globulin Ratio Procalcitonin Blood Type Antibody Screen Crossmatch 10/05/20 10/05/20 10/05/20 04:12 05:00 05:00 WBC 17.6 H RBC 3.34 L Hgb 9.9 L Hct 29.4 L MCV 88 MCH 30 MCHC 34 RDW 17.1 H Plt Count 56 L Lymph % (Auto) 8.5 L [place] % (Auto) 5.5 Eos % (Auto) 0.4 Baso % (Auto) 0.5 Lymph # (Auto) 1.5 [place] # (Auto) 1.0 H Eos # (Auto) 0.1 Baso # (Auto) 0.1 Seg Neutrophils % 85.1 H Seg Neutrophils # 15.0 H PT INR Fibrinogen D-Dimer ABG pH ABG pCO2 ABG pO2 ABG HCO3 ABG O2 Saturation ABG O2 Content ABG Base Excess ABG Hemoglobin ABG Carboxyhemoglobin ABG Methemoglobin Oxyhemoglobin FiO2 Sodium 137 Potassium 3.6 Chloride 100.5 Carbon Dioxide 28 Anion Gap 12 BUN 19 H Creatinine 1.8 H Estimated GFR 39 BUN/Creatinine Ratio 11 Glucose 80 POC Glucose 78 Lactic Acid Calcium 6.8 L Total Bilirubin 0.70 AST 225 H ALT 85 H Alkaline Phosphatase 71 NT-Pro-B Natriuret Pep Total Protein 4.5 L Albumin 2.7 L Albumin/Globulin Ratio 1.5 Procalcitonin Blood Type Antibody Screen Crossmatch 10/05/20 10/05/20 10/05/20 05:00 05:03 05:46 WBC RBC Hgb Hct MCV MCH MCHC RDW Plt Count Lymph % (Auto) [place] % (Auto) Eos % (Auto) Baso % (Auto) Lymph # (Auto) [place] # (Auto) Eos # (Auto) Baso # (Auto) Seg Neutrophils % Seg Neutrophils # PT 13.0 INR 1.00 Fibrinogen D-Dimer ABG pH 7.458 H ABG pCO2 39.7 ABG pO2 74.3 L ABG HCO3 27.5 H ABG O2 Saturation 96.3 ABG O2 Content 13.4 ABG Base Excess 3.4 H ABG Hemoglobin 10.0 L ABG Carboxyhemoglobin 1.0 ABG Methemoglobin 0.5 Oxyhemoglobin 94.9 L FiO2 75 Sodium Potassium Chloride Carbon Dioxide Anion Gap BUN Creatinine Estimated GFR BUN/Creatinine Ratio Glucose POC Glucose 76 Lactic Acid Calcium Total Bilirubin AST ALT Alkaline Phosphatase NT-Pro-B Natriuret Pep Total Protein Albumin Albumin/Globulin Ratio Procalcitonin Blood Type Antibody Screen Crossmatch 10/05/20 07:58 WBC RBC Hgb Hct MCV MCH MCHC RDW Plt Count Lymph % (Auto) [place] % (Auto) Eos % (Auto) Baso % (Auto) Lymph # (Auto) [place] # (Auto) Eos # (Auto) Baso # (Auto) Seg Neutrophils % Seg Neutrophils # PT INR Fibrinogen D-Dimer ABG pH ABG pCO2 ABG pO2 ABG HCO3 ABG O2 Saturation ABG O2 Content ABG Base Excess ABG Hemoglobin ABG Carboxyhemoglobin ABG Methemoglobin Oxyhemoglobin FiO2 Sodium Potassium Chloride Carbon Dioxide Anion Gap BUN Creatinine Estimated GFR BUN/Creatinine Ratio Glucose POC Glucose 83 Lactic Acid Calcium Total Bilirubin AST ALT Alkaline Phosphatase NT-Pro-B Natriuret Pep Total Protein Albumin Albumin/Globulin Ratio Procalcitonin Blood Type Antibody Screen Crossmatch Medications & Allergies - Medications Allergies/Adverse Reactions: Allergies egg Allergy (Severe, Verified 05/22/20 16:09) Anaphylaxis NSAIDS (Non-Steroidal Anti-Inflamma Allergy (Severe, Verified 05/22/20 16:09) Unknown pt c/o Palpitations, nervous, had to take benadryl Sulfa (Sulfonamide Antibiotics) Allergy (Severe, Verified 05/22/20 16:09) Anaphylaxis SWELING,NUMBNESS ibuprofen Allergy (Intermediate, Verified 05/22/20 16:09) Bleeding latex Allergy (Verified 05/22/20 16:09) Hives plecanatide [From Trulance] Allergy (Verified 05/22/20 16:09) Anaphylaxis adhesive tape Adverse Reaction (Intermediate, Verified 05/22/20 16:09) Unknown PAPER TAPE OK metoclopramide [From Reglan] Adverse Reaction (Verified 05/22/20 16:09) Unknown Home Medications: Home Medications Medication Instructions Recorded Confirmed Last Taken Type Pantoprazole [Protonix TAB] 20 mg PO DAILY 05/10/19 08/20/20 05/10/19 05:00 History busPIRone 15 mg PO DAILY 01/15/20 08/20/20 Unknown History Albuterol Sulfate [Proventil Hfa] 6.7 gm IH Q4HR PRN #1 hfa.aer.ad 04/07/20 08/20/20 Unknown Rx Topiramate (Nf) [Trokendi XR CAP] 100 mg PO DAILY 08/20/20 08/20/20 Unknown History oxyCODONE /ACETAMINOPHEN [Percocet 1 tab PO Q6HR 08/20/20 08/20/20 Unknown History 5/325 mg] Active Medications: Generic Name Dose Route Start Last Admin Trade Name Freq PRN Reason Stop Dose Admin Albumin Human 25 gm 10/03/20 14:00 10/05/20 05:56 Albumin Human 25% (25 Gm/100 Ml) Inj IV 25 gm Q8HR ERINN Administration Famotidine 20 mg 10/05/20 10:00 Famotidine 20 Mg/2 Ml Inj IV BID ERINN Fentanyl 50 mcg 10/03/20 14:57 10/04/20 15:21 Fentanyl 100 Mcg/2 Ml Inj IV 50 mcg Q2H PRN Administration agitation/sedation Hydrophilic Ointment 1 applic 10/04/20 06:55 Lip Therapy Vaseline TP Q2HR PRN Dry Lips Oxytocin/Sodium Chloride 30 units in 500 mls @ 0 mls/hr 10/02/20 17:00 Pitocin/Ns 30 Unit/500ml IV TITR ERINN Protocol As Directed Vasopressin 20 unit/ Sodium 101 mls @ 9.09 mls/hr 10/02/20 17:00 10/04/20 10:02 Chloride IV 0.03 units/min TITR ERINN 9.09 mls/hr Administration 0.03 UNITS/MIN Phenylephrine HCl 100 mg/ 100 mls @ 3 mls/hr 10/02/20 16:30 10/03/20 08:35 Sodium Chloride IV 380 mcg/min TITR ERINN 22.8 mls/hr Administration Protocol 50 MCG/MIN Epinephrine 8 mg/ Sodium 250 mls @ 3.75 mls/hr 10/02/20 18:00 10/04/20 11:06 Chloride IV 0 mcg/min TITR ERINN 0 mls/hr Titration Protocol 2 MCG/MIN Lactated Ringer's 1,000 mls @ 999 mls/hr 10/02/20 18:45 10/03/20 07:50 Lactated Ringers IV 10/07/20 19:46 Infused DIRECT ERINN Infusion Norepinephrine 8 mg/ Sodium 250 mls @ 3.75 mls/hr 10/03/20 01:00 10/04/20 0 2:06 Chloride IV 0 mcg/min TITR ERINN 0 mls/hr Titration Protocol 2 MCG/MIN Cefepime HCl 1 gm in 100 mls @ 200 mls/hr 10/03/20 13:00 10/05/20 05:18 Cefepime/Ns 1 Gm/100 Ml IV 200 mls/hr Q8H ERINN Administration Protocol Vancomycin HCl 2,000 mg/ 540 mls @ 250 mls/hr 10/03/20 12:30 10/04/20 12:27 Sodium Chloride IV 250 mls/hr Q24H ERINN Administration Fentanyl Citrate 2,000 mcg in 100 mls @ 6.235 mls/hr 10/04/20 07:00 10/05/20 05:20 Fentanyl Drip Premix IV 1 mcg/kg/hr TITR ERINN 6.235 mls/hr Administration Protocol 1 MCG/KG/HR Dextrose 1,000 mls @ 75 mls/hr 10/04/20 18:50 10/05/20 07:43 D10w IV 75 mls/hr DIRECT ERINN Administration Lorazepam 2 mg 10/02/20 22:05 10/04/20 06:52 Lorazepam 2 Mg/Ml Vial IV 2 mg Q2H PRN Administration Seizures Multi-Ingred Cream/Lotion/Oil/Oint 1 applic 10/04/20 06:55 Mineral Oil/Petrolatum, White Ophth Oint 3.5 Gm OU Q4HR PRN Dry Eye(s)
[2020-10-05] MEDS: FAMOTIDINE 20 MG/2 ML INJ IV SCH ×2 (09:24→21:34)
--- NOTE | 2020-10-05 10:34 | Progress Note ---
Assessment and Plan Assessment and plan: 30 year old -[place] female CHE 10/25/20 at 36w5d who presents with seizures in triage. Pt is not able to provide history but per pt's , she presented to the hospital to return a 24 hour urine specimen for analysis. She then suddenly reported that she did not feel good. She was taken to labor and delivery and shortly after arrival, she began seizing. During this time, a code met was called because the patient became hypoxic. She was then noted to be without a pulse. Chest compressions were started immediately, and the patient was emergently taken to the operating room for delivery of the fetus. This patient has had care at [facility] with comanagement by [facility] since 11 wks complicated by ADHD, morbid obesity, generalized anxiety disorder, panic attacks, chronic narcotic use, fibromyalgia, GERD, Irritable Bowel Syndrome, Migraines, h/o endometrial ablation and ovarian vein embolization, genital herpes, insomnia, LGA fetus, nausea and vomiting, polyh ydramnios, quad screen positive for Down's Syndrome, and previous x 3. She is GBS negative. 11:30: Pt brought to L&D triage for evaluation of possible labor. Pt accompanied by her spouse. Pt spouse poor historian; unable to obtain history, allergies at this time. Pt taken from registration to triage area via WC. Pt unresponsive, actively seizing with snorous respirations. concrete products machine operator, Kassy, called and requesting assistance. 11:35: Multiple staff at bedside. Pt 02 sat 67% on nonrebreather, unable to read BP at this time. Yifan Theodore CRNA, at bedside for intubation and assistance wi th IV insertion. INT attempt by multiple RNs unsuccessful at this time. 11:42: Pt being bagged by KORIN, 02% 79%. No pulse palpated, compressions started at this time; bharati young called and Dr. Newberry preparing OR for emergent c/s. 11:44: Continued compressions on stretcher while transporting pt to OR 1. Pt being bagged with jaw thrust manuever in place by KORIN Stringer student. 11:45: Arrival to OR 1. Dr. Newberry and Dr. Portillo present for emergent c/s. Code team arrived for continued care. patient revived and c/s done Patient has been bleeding from C/s site Patient transfused multiple units of PRBC Patient in DIC. Transferred to the ICU 10/03. Patient seen and examined at bedside this morning. Patient is nonresponsive and mechanically ventilated. On pressors. Labs reviewed-has le ukocytosis, anemia, thrombocytopenia, ADOLPH and lactic acidosis. Started on IV antibiotics to cover possible sepsis secondary to DIC. Hematology oncology recommendations appreciated-needs additional cryoprecipitate and FFP. Monitor D-dimer, fibrinogen and frequent labs. Nephrology consulted for lactic acidosis and ADOLPH. 10/04. Remains mechanically ventilated. [place] antibiotics. Labs shows improved acidosis - lactic acid 3.5. Hb drop noted. Getting transfused 2 units PRBCs. Platelet count is ~40k. Continue to monitor labs closely. Critical care team on board. 10/05; xray reviewed, concerning for multifocal infilrate, likelu underlying Pneumonia, will add ID consult to assist with management of this critically ill patient, start trickle feed, closely monitor renal system Assessment/Plan -- Sepsis with presumed Pneumonia --Acute respiratory failure with hypoxia Current Visit: Yes Status: Acute Plan to address problem: Patient intubated Vent management --DIC (disseminated intravascular coagulation) vs HELLP syndrome Current Visit: Yes Status: Acute Plan to address problem: Has anemia,thrombocytopenia and elevated liver enzymes Patient received multiple units of RBCs, FFP's, cryo Hematology/oncology recommendations appreciated Continue to trend fibrinogen and INR Critical care on board --Cardiac arrest Current Visit: Yes Status: Acute Plan to address problem: ACLS protocol followed by revival Echo pending --Shock Current Visit: Yes Status: Acute Plan to address problem: Now on one pressor Likely hypovolemic. Started on empirical antibiotics for possible sepsis. Continue to monitor blood pressure closely Trend H&H and transfuse as needed --Lactic acidosis Current Visit: Yes Status: Acute Plan to address problem: As a result of poor organ perfusion and possible sepsis Continue IV hydration. Lactic acid is trending down Nephrology on board --ADOLPH Current Visit: Yes Status: Acute Plan to address problem: As a result of hypoperfusion and shock Continue IV hydration Cr stable at 1.7. DVT prophylaxis Current Visit: Yes Status: Acute Plan to address problem: Patient in DIC No anticoagulants The high probability of a clinically significant, sudden or life threatening deterioration of the [pulmonary] system(s) required my full and direct attention, intervention and personal management. The aggregate critical care time was [35] minutes. This time is in addition to time spent performing reported procedures but includes the following: [x] Data Review and interpretation [x] Patient assessment and monitoring of vital signs [x] Documentation [x] Medication orders and management History Interval history: Patient seen and examined, remains critical ill on the ventilator Hospitalist Physical - Physical exam Narrative exam: VITAL SIGNS: Reviewed. GENERAL: Intubated HEAD: No signs of head trauma. EYES: Pupils are equal. MOUTH: OT in place NECK: No adenopathy, no JVD. CHEST: Rales posteriorly CARDIAC: normal S1 and S2, without murmurs, gallops, or rubs. ABDOMEN: Soft, non tender and non distended. surgical wound in tact, No rebound or guarding, and no masses palpated. Bowel Sounds normal. AVINASH drain intact with bloody fluid MUSCULOSKELETAL: No edema NEUROLOGIC EXAM: Intubated SKIN: No obvious lesions - Constitutional Vitals: Temp Pulse Resp BP Pulse Ox 100.0 F H 100 H 28 H 151/92 100 10/05/20 08:00 10/05/20 10:00 10/05/20 10:00 10/05/20 10:00 10/05/20 10:00 General appearance: Present: severe distress, well-nourished HEART Score - HEART Score Age: < 45 Risk factors: 1-2 risk factors - Critical Actions Critical Actions: >7 pts:50-65% risk of adverse cardiac event. Early invasive measures Results - Labs CBC & Chem 7: 10/05/20 05:00 10/05/20 15:00 Labs: Laboratory Last Values WBC 17.6 K/mm3 (4.5-11.0) H 10/05/20 05:00 RBC 3.34 M/mm3 (3.65-5.03) L 10/05/20 05:00 Hgb 9.9 gm/dl (10.1-14.3) L 10/05/20 05:00 Hct 29.4 % (30.3-42.9) L 10/05/20 05:00 MCV 88 fl (79-97) 10/05/20 05:00 MCH 30 pg (28-32) 10/05/20 05:00 MCHC 34 % (30-34) 10/05/20 05:00 RDW 17.1 % (13.2-15.2) H 10/05/20 05:00 Plt Count 56 K/mm3 (140-440) L 10/05/20 05:00 Lymph % (Auto) 8.5 % (13.4-35.0) L 10/05/20 05:00 [place] % (Auto) 5.5 % (0.0-7.3) 10/05/20 05:00 Eos % (Auto) 0.4 % (0.0-4.3) 10/05/20 05:00 Baso % (Auto) 0.5 % (0.0-1.8) 10/05/20 05:00 Lymph # (Auto) 1.5 K/mm3 (1.2-5.4) 10/05/20 05:00 [place] # (Auto) 1.0 K/mm3 (0.0-0.8) H 10/05/20 05:00 Eos # (Auto) 0.1 K/mm3 (0.0-0.4) 10/05/20 05:00 Baso # (Auto) 0.1 K/mm3 (0.0-0.1) 10/05/20 05:00 Add Manual Diff Complete 10/03/20 09:00 Total Counted 100 10/03/20 09:00 Seg Neutrophils % 85.1 % (40.0-70.0) H 10/05/20 05:00 Seg Neuts % (Manual) 67.0 % (40.0-70.0) 10/03/20 09:00 Band Neutrophils % 11.0 % 10/03/20 09:00 Lymphocytes % (Manual) 11.0 % (13.4-35.0) L 10/03/20 09:00 Reactive Lymphs % (Man) 1.0 % 10/02/20 12:18 Monocytes % (Manual) 7.0 % (0.0-7.3) 10/03/20 09:00 Metamyelocytes % 4.0 % 10/03/20 09:00 Myelocytes % 2.0 % 10/02/20 13:05 Nucleated RBC % 3.0 % (0.0-0.9) H 10/03/20 09:00 Seg Neutrophils # 15.0 K/mm3 (1.8-7.7) H 10/05/20 05:00 Seg Neutrophils # Man 18.4 K/mm3 (1.8-7.7) H 10/03/20 09:00 Band Neutrophils # 3.0 K/mm3 10/03/20 09:00 Lymphocytes # (Manual) 3.0 K/mm3 (1.2-5.4) 10/03/20 09:00 Abs React Lymphs (Man) 0.0 K/mm3 10/03/20 09:00 Monocytes # (Manual) 1.9 K/mm3 (0.0-0.8) H 10/03/20 09:00 Eosinophils # (Manual) 0.0 K/mm3 (0.0-0.4) 10/03/20 09:00 Basophils # (Manual) 0.0 K/mm3 (0.0-0.1) 10/03/20 09:00 Metamyelocytes # 1.1 K/mm3 10/03/20 09:00 Myelocytes # 0.0 K/mm3 10/03/20 09:00 Promyelocytes # 0.0 K/mm3 10/03/20 09:00 Blast Cells # 0.0 K/mm3 10/03/20 09:00 WBC Morphology Not Reportable 10/03/20 09:00 WBC Morphology TNR 10/03/20 09:00 Hypersegmented Neuts Not Reportable 10/03/20 09:00 Hyposegmented Neuts Not Reportable 10/03/20 09:00 Hypogranular Neuts Not Reportable 10/03/20 09:00 Smudge Cells Not Reportable 10/03/20 09:00 Toxic Granulation Not Reportable 10/03/20 09:00 Toxic Vacuolation Not Reportable 10/03/20 09:00 Dohle Bodies Not Reportable 10/03/20 09:00 Pelger-Huet Anomaly Not Reportable 10/03/20 09:00 Ester Rods Not Reportable 10/03/20 09:00 Platelet Estimate Consistent w auto 10/03/20 09:00 Clumped Platelets Not Reportable 10/03/20 09:00 Plt Clumps, EDTA Not Reportable 10/03/20 09:00 Large Platelets Few 10/03/20 09:00 Giant Platelets Not Reportable 10/03/20 09:00 Platelet Satelliting Not Reportable 10/03/20 09:00 Plt Morphology Comment Not Reportable 10/03/20 09:00 RBC Morphology Not Reportable 10/03/20 09:00 Dimorphic RBCs Not Reportable 10/03/20 09:00 Polychromasia Few 10/03/20 09:00 Hypochromasia Not Reportable 10/03/20 09:00 Poikilocytosis Not Reportable 10/03/20 09:00 Anisocytosis Not Reportable 10/03/20 09:00 Microcytosis Not Reportable 10/03/20 09:00 Macrocytosis Not Reportable 10/03/20 09:00 Spherocytes Not Reportable 10/03/20 09:00 Pappenheimer Bodies Not Reportable 10/03/20 09:00 Sickle Cells Not Reportable 10/03/20 09:00 Target Cells Not Reportable 10/03/20 09:00 Tear Drop Cells Few 10/03/20 09:00 Ovalocytes Not Reportable 10/03/20 09:00 Helmet Cells Not Reportable 10/03/20 09:00 Burk-Trezevant Bodies Not Reportable 10/03/20 09:00 [place] Rings Not Reportable 10/03/20 09:00 [place] Cells Not Reportable 10/03/20 09:00 Bite Cells Not Reportable 10/03/20 09:00 Crenated Cell Not Reportable 10/03/20 09:00 Elliptocytes Few 10/03/20 09:00 Acanthocytes (Spur) Not Reportable 10/03/20 09:00 Rouleaux Not Reportable 10/03/20 09:00 Hemoglobin C Crystals Not Reportable 10/03/20 09:00 Schistocytes Not Reportable 10/03/20 09:00 Malaria parasites Not Reportable 10/03/20 09:00 Sharad Bodies Not Reportable 10/03/20 09:00 Hem Pathologist Commnt No 10/03/20 09:00 PT 13.0 Sec. (12.2-14.9) 10/05/20 05:00 INR 1.00 (0.87-1.13) 10/05/20 05:00 APTT 31.6 Sec. (24.2-36.6) 10/03/20 00:40 Fibrinogen 336 mg/dl (211-480) 10/04/20 10:00 D-Dimer > 51726 ng/mlDDU (0-234) H 10/04/20 10:00 ABG pH 7.458 pH Units (7.350-7.450) H 10/05/20 05:03 POC ABG pCO2 41.6 mmHg (32.0-48.0) 10/04/20 03:53 ABG pCO2 39.7 mm Hg 10/05/20 05:03 POC ABG pO2 110.6 mmHg (83-108) H 10/04/20 03:53 ABG pO2 74.3 mm Hg (80.0-90.0) L 10/05/20 05:03 POC ABG HCO3 26.5 10/04/20 03:53 ABG HCO3 27.5 mmol/L (20.0-26.0) H 10/05/20 05:03 ABG O2 Saturation 96.3 % (95.0-99.0) 10/05/20 05:03 ABG O2 Content 13.4 (0.0-44) 10/05/20 05:03 POC ABG Base Excess 1.9 10/04/20 03:53 ABG Base Excess 3.4 mmol/L (-2.0-3.0) H 10/05/20 05:03 ABG Hemoglobin 10.0 gm/dl (12.0-16.0) L 10/05/20 05:03 ABG Carboxyhemoglobin 1.0 % (0.0-5.0) 10/05/20 05:03 ABG Methemoglobin 0.5 % (0.0-1.5) 10/05/20 05:03 ABG Sodium 132.0 mmol/L (136.0-145.0) L 10/04/20 03:53 ABG Potassium 3.6 mmol/L (3.40-4.50) 10/04/20 03:53 ABG Chloride 101.0 mmol/L (98-107) 10/04/20 03:53 ABG Glucose 111 mg/dL (65-95) H 10/04/20 03:53 VBG pH 6.949 (7.320-7.420) L* 10/02/20 Unknown Oxyhemoglobin 94.9 % (95.0-99.0) L 10/05/20 05:03 FiO2 75 % 10/05/20 05:03 Sodium 137 mmol/L (137-145) 10/05/20 05:00 Potassium 3.6 mmol/L (3.6-5.0) 10/05/20 05:00 Chloride 100.5 mmol/L (98-107) 10/05/20 05:00 Carbon Dioxide 28 mmol/L (22-30) 10/05/20 05:00 Anion Gap 12 mmol/L 10/05/20 05:00 BUN 19 mg/dL (7-17) H 10/05/20 05:00 Creatinine 1.8 mg/dL (0.6-1.2) H 10/05/20 05:00 Estimated GFR 39 ml/min 10/05/20 05:00 BUN/Creatinine Ratio 11 % 10/05/20 05:00 Glucose 80 mg/dL (65-100) 10/05/20 05:00 POC Glucose 90 mg/dL (70-105) 10/05/20 10:14 Lactic Acid 1.90 mmol/L (0.7-2.0) 10/04/20 22:00 Uric Acid 7.5 mg/dL (3.5-7.6) 10/02/20 13:05 Calcium 6.8 mg/dL (8.4-10.2) L 10/05/20 05:00 Total Bilirubin 0.70 mg/dL (0.1-1.2) 10/05/20 05:00 AST 225 units/L (5-40) H 10/05/20 05:00 ALT 85 units/L (7-56) H 10/05/20 05:00 Alkaline Phosphatase 71 units/L (35-129) 10/05/20 05:00 Lactate Dehydrogenase 769 units/L (91-180) H 10/02/20 13:05 NT-Pro-B Natriuret Pep 2788 pg/mL (0-450) H 10/04/20 10:00 Total Protein 4.5 g/dL (6.3-8.2) L 10/05/20 05:00 Albumin 2.7 g/dL (3.9-5) L 10/05/20 05:00 Albumin/Globulin Ratio 1.5 % 10/05/20 05:00 Procalcitonin 26.21 ng/mL (<0.15) 10/04/20 10:00 Arterial Blood Glucose 111 mg/dL (65-95) H 10/04/20 03:53 Arterial Blood Ionized Calcium 3.5 mg/dL (4.6-5.3) L 10/04/20 03:53 Blood Type O POSITIVE 10/02/20 12:50 Antibody Screen Negative 10/02/20 12:50 Crossmatch See Detail 10/02/20 12:50 - Diagnostic Impressions Diagnostic Impressions: Echocardiogram 10/03/20 13:42 Transthoracic Echocardiogram Indication: S/P Cardiac Arrest R/O Cardiomyopathy BP: 133/71 Conclusions *Global left ventricular systolic function is normal. *The estimated ejection fraction is 60-65%. *There is trace of mitral regurgitation. *The right 0heart chambers are both slightly dilated. *There is mild tricuspid regurgitation. *There is mild-moderate pulmonary hypertension. *The right ventricular systolic pressure is calculated at 44 mmHg. *The study quality is technically difficult. Findings Procedure Info: The study quality is technically difficult. The study is technically limited due to patient body habitus. The study was technically limited due to the patient's inability to lay in the left lateral decubitus position. Left Ventricle: The left ventricular chamber size is normal. There is no left ventricular hypertrophy. Global left ventricular systolic function is normal. The estimated ejection fraction is 60-65%. Left Atrium: The left atrial chamber size is normal. Right Ventricle: The right ventricle is slightly dilated. Right Atrium: The right atrium is mildly dilated. Aortic Valve: The aortic valve leaflets are mildly thickened. There is no evidence of aortic regurgitation. There is no evidence of aortic stenosis. Mitral Valve: The mitral valve leaflets are mildly thickened. There is trace of mitral regurgitation. There is no evidence of mitral stenosis. Tricuspid Valve: There is mild tricuspid regurgitation. The right ventricular systolic pressure is calculated at 44 mmHg. There is evidence of mild pulmonary hypertension. Pulmonic Valve: There is trace pulmonic regurgitation. Pericardium: There is no pericardial effusion. Aorta: There is no dilatation of the ascending aorta. There is no dilatation of the aortic root. Venous: The inferior vena cava is dilated. Measurements Chambers 2D Name Value Normal Range IVSd (2D) 1 cm (0.6 - 1.1) LVPWd (2D) 1.01 cm (0.6 - 1.1) LVIDd (2D) 4.58 cm (3.7 - 5.6) LVIDs (2D) 3.17 cm (2 - 3.8) LV FS (2D) 30.93 % - EF Teichholz (2D) 58.66 % - Ao root diameter (2D) 2.94 cm (2 - 3.7) Volumes/Mass Name Value Normal Range LA ESV SP 4CH (A/L) 72.82 ml - LA ESV SP 2CH (A/L) 66.86 ml - LA ESV BP (A/L) 74.49 ml - LA ESV SP 4CH (MOD) 71.03 ml - LA ESV SP 2CH (MOD) 64.3 ml - LV EDV SP 4CH (MOD) 98.82 ml - LV ESV SP 4CH (MOD) 24.8 ml - EF SP 4CH (MOD) 74.9 % - LV EDV SP 2CH (MOD) 86.1 ml - LV ESV SP 2CH (MOD) 36.93 ml - EF SP 2CH (MOD) 57.11 % - LV EDV BP 94.4 ml - LV ESV BP 32.66 ml - BP EF (MOD) 65.4 % - Diastolic/Systolic Function Name Value Normal Range MV E-wave Vmax 1.04 m/sec - MV deceleration time 160.46 msec - MV A-wave Vmax 0.92 m/sec - MV E:A ratio 1.14 ratio - Aortic Valve Name Value Normal Range AV Vmax 2.12 m/sec - AV VTI 22.37 cm - AV peak gradient 17.95 mmHg - AV mean gradient 7.29 mmHg - LVOT diameter 2.01 cm - LVOT Vmax 1.8 m/sec - LVOT VTI 27.17 cm - LVOT peak gradient 12.91 mmHg - LVOT mean gradient 6.83 mmHg - SV LVOT 86.42 ml - ANITA (continuity Vmax) 2.7 cm2 - ANITA (continuity VTI) 3.86 cm2 - Ascending Ao 3.18 cm - Tricuspid Valve Name Value Normal Range TV E-wave Vmax 0.88 m/sec - TR Vmax 3.01 m/sec - TR peak gradient 36.27 mmHg - RAP 8 mmHg - RVSP 44 mmHg - IVC diameter 2.65 cm (1.2 - 2.3) Pulmonic Valve/Qp:Qs Name Value Normal Range PV Vmax 1.22 m/sec - PV peak gradient 5.91 mmHg - RVOT Vmax 0.87 m/sec - RVOT VTI 13.32 cm - RVOT peak gradient 3 mmHg - PV acceleration time 110.37 msec - [place]/IV: Voiding Method Indwelling Catheter IV Catheter Type [Left CVL Internal Jugular] IV Catheter Type [Left Hand] Peripheral IV IV Catheter Type [Left Peripheral IV Antecubital] Active Medications - Current Medications Current Medications: Generic Name Dose Route Start Last Admin Trade Name Freq PRN Reason Stop Dose Admin Famotidine 20 mg 10/05/20 10:00 10/05/20 09:24 Famotidine 20 Mg/2 Ml Inj IV 20 mg BID ERINN Administration Fentanyl 50 mcg 10/03/20 14:57 10/04/20 15:21 Fentanyl 100 Mcg/2 Ml Inj IV 50 mcg Q2H PRN Administration agitation/sedation Hydrophilic Ointment 1 applic 10/04/20 06:55 Lip Therapy Vaseline TP Q2HR PRN Dry Lips Oxytocin/Sodium Chloride 30 units in 500 mls @ 0 mls/hr 10/02/20 17:00 Pitocin/Ns 30 Unit/500ml IV TITR ERINN Protocol As Directed Vasopressin 20 unit/ Sodium 101 mls @ 9.09 mls/hr 10/02/20 17:00 10/04/20 10:02 Chloride IV 0.03 units/min TITR ERINN 9.09 mls/hr Administration 0.03 UNITS/MIN Phenylephrine HCl 100 mg/ 100 mls @ 3 mls/hr 10/02/20 16:30 10/03/20 08:35 Sodium Chloride IV 380 mcg/min TITR ERINN 22.8 mls/hr Administration Protocol 50 MCG/MIN Epinephrine 8 mg/ Sodium 250 mls @ 3.75 mls/hr 10/02/20 18:00 10/04/20 11:06 Chloride IV 0 mcg/min TITR ERINN 0 mls/hr Titration Protocol 2 MCG/MIN Lactated Ringer's 1,000 mls @ 999 mls/hr 10/02/20 18:45 10/03/20 07:50 Lactated Ringers IV 10/07/20 19:46 Infused DIRECT ERINN Infusion Norepinephrine 8 mg/ Sodium 250 mls @ 3.75 mls/hr 10/03/20 01:00 10/04/20 02:06 Chloride IV 0 mcg/min TITR ERINN 0 mls/hr Titration Protocol 2 MCG/MIN Fentanyl Citrate 2,000 mcg in 100 mls @ 6.235 mls/hr 10/04/20 07:00 10/05/20 05:20 Fentanyl Drip Premix IV 1 mcg/kg/hr TITR ERINN 6.235 mls/hr Administration Protocol 1 MCG/KG/HR Dextrose 1,000 mls @ 75 mls/hr 10/04/20 18:50 10/05/20 07:43 D10w IV 75 mls/hr DIRECT ERINN Administration Lorazepam 2 mg 10/02/20 22:05 10/04/20 06:52 Lorazepam 2 Mg/Ml Vial IV 2 mg Q2H PRN Administration Seizures Multi-Ingred Cream/Lotion/Oil/Oint 1 applic 10/04/20 06:55 Mineral Oil/Petrolatum, White Ophth Oint 3.5 Gm OU Q4HR PRN Dry Eye(s) Nutrition/Malnutrition Assess - Dietary Evaluation Nutrition/Malnutrition Findings: Nutrition Notes Start: 10/04/20 1 1:13 Freq: Status: Active Protocol: Document 10/04/20 11:13 LP (Rec: 10/04/20 11:25 LP [id number]) Nutrition Notes Need for Assessment generated from: MD Order Initial or Follow up Assessment Current Diagnosis Acute Kidney Injury, Respiratory Failure Other Pertinent Diagnosis Cardiac arrest Current Diet NPO Labs/Tests Cr 1.7 BG 216 Pertinent Medications Reviewed Height 5 ft 8 in Weight 124.7 kg [place] Body Weight (kg) 63.63 BMI 41.8 Weight Status Morbidly Obese Subjective/Other Information Consult for evaluation nutrition intakes. Pt on vent. Pt had emergency . Burn Absent Trauma Absent GI Symptoms None Food Allergy Yes Current % PO Negligible Minimum of two criteria No physical signs of malnutrition #1 Nutrition Diagnosis Inadequate oral intake Etiology ARF As Evidenced by Signs and Symptoms Pt unable to consume PO due to vent Is patient on ventilator? Yes Is Patient Ambulatory and/or Out of Bed No REE-([facility] [facility]-confined to bed) 2408.172 Kcal/Kg value to use for calculation 15 Approximate Energy Requirements Using 1871 kcal/Kg Calculation Used for Recommendations Kcal/kg Additional Notes Protein needs are up to 159g ( up to 2.5g/kg) Fluid needs are 1ml/kcal Nutrition Intervention Change Diet Order: TF consult or extubation Nutrition Support: once consulted Vital 1.2 at 65ml/hr Flush with 100ml q4h Kcal 1,872 Protein (gm) 117 Fluid (mL) 1,265 Goal #1 TF consult or extubation Anticipated Discharge Needs: Unable to determine at this time Follow-Up By: 10/06/20 Additional Comments Follow for TF consult or extubation
[2020-10-05] MEDS ORDERED: LIPASE 10,500/PROTEASE 25,000/AMYLASE 43,750 (UNITS) DR CAP FEEDTUBE PRN (11:09)
[2020-10-05] MEDS ORDERED: SIMPLE SYRUP 15 ML FEEDTUBE PRN ×2 (11:09)
--- NOTE | 2020-10-05 11:22 | Progress Note ---
Assessment and Plan 30 y/o female with Eclampsia, s/p emergent section with DIC, acute respiratory failure and worsening renal function. 10/05/2020: Feed today. Stop Albumin and Abx. Will stop D10 once feeds start but will continue q2 hour FSBS until 3 consecutive >180. H/H stable. Will continue to aggressively wean FiO2. Patient has a 6.5 tube that will likely impede PSV trials given her size so will attempt to change out. Also will restart her home meds for anxiety and chronic migraine therapy. Prognosis is still guarded but promising given her hemodynamic stability. Continue chowdhury for accurate urine out put. 10/04/2020: Much improved today. Still very ill however. Down to just one pressor. Still with good urine output. Await chemistry results from this am. Likely can stop Bicarb drip given improvement in pH but would like to see bicarb on blood work. Agree with continued transfusion of blood products. Needs fibrinongen levels as well as repeat coags. I cannot see the standing orders on my screen so will call down to lab and let them know what's needed. I know she has had at leas 2 cryo's but I am not exactly sure if the count is accurate in the computer in regards to PRBC's and FFP's. Platelets lower this am but still greater than 30K. Continue chowdhury for I/O measurement. Will start to wean FiO2 on vent. CXR looks like edema but oxygenation is stable right now. Resuscitation is the most important thing right now. Will continue abx therapy at least 24 more hours. Prognosis is still very guarded but patient showing signs of improvement. 1. CV-Extremely volume deplete as well as intrasvascular depletion. Will continue to bolus with LR and saline as needed. Will add Albumin to help with intravascular volume. Spoke with OB attending over phone yesterday. No acute indication for steroids at this time. Serial H/H's given maximum pressor requirements. Will transfuse to keep up with AVINASH drain and help with weaning. Severely acidotic but improving. Likely adding to pressor requirement. GOAL is map of 65 and will wean accordingly. Will start to wean Sohail first. Ordered art line as well. 2. Heme-DIC secondary to Eclampsia, possible sepsis but white count could be stress related. Will continue to transfuse PRBC's and FFP with Cryo as needed. Follow Fibrinogen levels. Tele Heme has been consulted and note reviewed. Will give one cryo for every 6 units of PRBC's transfused. has gotten one cryo, awaiting the other to thaw out. Plts at 72K right now. Hold on further transfusion. May need to consider Factor VII if execessive bleeding continues. Will also put on broad spec abx therapy incase of possible sepsis causing DIC. Hopeful with correction of coaguloapthy she will improve. 3. Very very guarded prognosis. Will continue aggressive resuscitation. Family to come visit given exceptional case and extremely guarded prognosis. CCT 31 minutes. Subjective Date of service: 10/05/20 Principal diagnosis: Eclampsia/HELLP Syndrome, ADOLPH, DIC; s/p , s/p supracervical hyst Interval history: No acute events. Blood sugars are stable but still low on d10. OB ok with feeding so will start today. UOP still great. Mental status, off sedation will open eyes but not following commands. Does bite the tube occasionally. No fevers. Objective Vital Signs - 12hr 10/04/20 10/04/20 10/04/20 23:15 23:30 23:45 Temperature Pulse Rate 102 H 102 H 102 H Pulse Rate [ From Monitor] Respiratory 31 H 27 H 28 H Rate Blood Pressure 158/98 147/93 151/90 O2 Sat by Pulse 98 98 98 Oximetry 10/05/20 10/05/20 10/05/20 00:00 00:01 00:04 Temperature 98.6 F Pulse Rate 100 H 102 H 103 H Pulse Rate [ From Monitor] Respiratory 26 H Rate Blood Pressure 147/88 147/88 O2 Sat by Pulse 99 96 Oximetry 10/05/20 10/05/20 10/05/20 00:15 00:30 00:45 Temperature Pulse Rate 100 H 106 H 102 H Pulse Rate [ From Monitor] Respiratory 25 H 24 25 H Rate Blood Pressure 153/82 151/92 148/88 O2 Sat by Pulse 100 99 100 Oximetry 10/05/20 10/05/20 10/05/20 01:00 01:15 01:30 Temperature Pulse Rate 101 H 101 H 100 H Pulse Rate [ From Monitor] Respiratory 26 H 27 H 28 H Rate Blood Pressure 148/93 147/89 156/94 O2 Sat by Pulse 99 99 98 Oximetry 12/21/20 12/21/20 12/21/20 01:45 02:00 02:15 Temperature Pulse Rate 100 H 99 H 99 H Pulse Rate [ From Monitor] Respiratory 26 H 26 H 25 H Rate Blood Pressure 145/91 151/92 151/86 O2 Sat by Pulse 99 99 99 Oximetry 10/05/20 10/05/20 10/05/20 02:30 02:45 03:00 Temperature Pulse Rate 102 H 100 H 99 H Pulse Rate [ From Monitor] Respiratory 26 H 26 H 25 H Rate Blood Pressure 161/91 148/88 146/89 O2 Sat by Pulse 97 99 99 Oximetry 10/05/20 10/05/20 10/05/20 03:15 03:31 03:45 Temperature Pulse Rate 99 H 99 H 97 H Pulse Rate [ From Monitor] Respiratory 25 H 18 32 H Rate Blood Pressure 138/86 178/114 146/89 O2 Sat by Pulse 98 96 96 Oximetry 10/05/20 10/05/20 10/05/20 04:00 04:01 04:11 Temperature 98.3 F Pulse Rate 97 H 97 H Pulse Rate [ From Monitor] Respiratory 29 H Rate Blood Pressure 146/89 O2 Sat by Pulse 98 Oximetry 10/05/20 10/05/20 10/05/20 04:15 04:28 04:30 Temperature Pulse Rate 98 H 100 H 99 H Pulse Rate [ From Monitor] Respiratory 25 H 28 H Rate Blood Pressure 121/81 121/81 139/94 O2 Sat by Pulse 100 98 99 Oximetry 10/05/20 10/05/20 10/05/20 04:45 05:00 05:15 Temperature Pulse Rate 98 H 98 H 98 H Pulse Rate [ From Monitor] Respiratory 26 H 24 27 H Rate Blood Pressure 134/87 138/85 138/85 O2 Sat by Pulse 99 98 97 Oximetry 10/05/20 10/05/20 10/05/20 05:30 05:45 06:00 Temperature Pulse Rate 97 H 102 H 98 H Pulse Rate [ From Monitor] Respiratory 27 H 27 H 24 Rate Blood Pressure 138/87 147/94 144/87 O2 Sat by Pulse 98 97 99 Oximetry 10/05/20 10/05/20 10/05/20 06:15 06:30 06:45 Temperature Pulse Rate 98 H 96 H 98 H Pulse Rate [ From Monitor] Respiratory 25 H 25 H 30 H Rate Blood Pressure 153/96 135/87 132/90 O2 Sat by Pulse 96 99 97 Oximetry 10/05/20 10/05/20 10/05/20 07:00 07:15 07:30 Temperature Pulse Rate 98 H 98 H 97 H Pulse Rate [ From Monitor] Respiratory 26 H 27 H 23 Rate Blood Pressure 140/86 146/93 139/83 O2 Sat by Pulse 100 97 99 Oximetry 10/05/20 10/05/20 10/05/20 07:45 08:00 08:15 Temperature 100.0 F H Pulse Rate 96 H 96 H 97 H Pulse Rate [ 97 H From Monitor] Respiratory 24 25 H 25 H Rate Blood Pressure 138/85 138/89 143/80 O2 Sat by Pulse 100 99 100 Oximetry 10/05/20 10/05/20 10/05/20 08:29 08:30 08:45 Temperature Pulse Rate 98 H 98 H 96 H Pulse Rate [ From Monitor] Respiratory 32 H 26 H Rate Blood Pressure 158/94 158/94 156/87 O2 Sat by Pulse 98 98 99 Oximetry 10/05/20 10/05/20 10/05/20 09:00 09:15 09:30 Temperature Pulse Rate 96 H 96 H 94 H Pulse Rate [ From Monitor] Respiratory 25 H 24 26 H Rate Blood Pressure 144/85 139/85 149/92 O2 Sat by Pulse 99 100 99 Oximetry 10/05/20 10/05/20 09:45 10:00 Temperature Pulse Rate 95 H 100 H Pulse Rate [ From Monitor] Respiratory 28 H 28 H Rate Blood Pressure 144/86 151/92 O2 Sat by Pulse 96 100 Oximetry Constitutional: asleep Eyes: non-icteric ENT: other (orally intubated and not sedated) Neck: other (large in cirumference) Ascultation: Bilateral: diminished breath sounds Percussion: Bilateral: not dull Cardiovascular: other (sinus tach) Gastrointestinal: other (post surgical changes with drain on the left side) Extremities: anasarca Neurologic: unable to assess CBC and BMP: 10/05/20 05:00 10/05/20 05:00 ABG, PT/INR, D-dimer: ABG ABG pH 7.458 pH Units (7.350-7.450) H 10/05/20 05:03 POC ABG pCO2 41.6 mmHg (32.0-48.0) 10/04/20 03:53 ABG pCO2 39.7 mm Hg 10/05/20 05:03 POC ABG pO2 110.6 mmHg (83-108) H 10/04/20 03:53 ABG pO2 74.3 mm Hg (80.0-90.0) L 10/05/20 05:03 POC ABG HCO3 26.5 10/04/20 03:53 ABG O2 Saturation 96.3 % (95.0-99.0) 10/05/20 05:03 PT/INR, D-dimer PT 13.0 Sec. (12.2-14.9) 10/05/20 05:00 INR 1.00 (0.87-1.13) 10/05/20 05:00 D-Dimer > 36101 ng/mlDDU (0-234) H 10/04/20 10:00 Abnormal lab findings: Abnormal Labs 10/02/20 10/02/20 10/02/20 12:03 12:18 12:18 WBC 14.9 H RBC Hgb 9.1 L Hct MCV MCH 22 L MCHC 28 L RDW 17.6 H Plt Count 102 L Lymph % (Auto) Lymph # (Auto) [place]inger # (Auto) Seg Neutrophils % Seg Neuts % (Manual) 36.0 L Lymphocytes % (Manual) 49.0 H Monocytes % (Manual) Nucleated RBC % 6.0 H Seg Neutrophils # Seg Neutrophils # Man Lymphocytes # (Manual) 7.3 H Monocytes # (Manual) PT INR APTT Fibrinogen D-Dimer ABG pH POC ABG pCO2 POC ABG pO2 ABG pO2 ABG HCO3 ABG Base Excess ABG Hemoglobin ABG Sodium ABG Chloride ABG Glucose VBG pH Oxyhemoglobin Sodium 134 L Chloride Carbon Dioxide 12 L BUN 6 L Creatinine Glucose 390 H POC Glucose 451 H Lactic Acid Calcium AST 135 H ALT 85 H Alkaline Phosphatase 172 H Lactate Dehydrogenase 641 H NT-Pro-B Natriuret Pep Total Protein 5.4 L Albumin 2.3 L Arterial Blood Glucose Arterial Blood Ionized Calcium Crossmatch 10/02/20 10/02/20 10/02/20 12:50 13:05 13:05 WBC 38.6 H RBC Hgb 8.9 L Hct 29.0 L MCV 73 L MCH 22 L MCHC RDW 17.2 H Plt Count Lymph % (Auto) Lymph # (Auto) [place]inger # (Auto) Seg Neutrophils % Seg Neuts % (Manual) Lymphocytes % (Manual) Monocytes % (Manual) Nucleated RBC % 2.0 H Seg Neutrophils # Seg Neutrophils # Man 20.1 H Lymphocytes # (Manual) 10.4 H Monocytes # (Manual) 2.3 H PT INR APTT Fibrinogen D-Dimer ABG pH POC ABG pCO2 POC ABG pO2 ABG pO2 ABG HCO3 ABG Base Excess ABG Hemoglobin ABG Sodium ABG Chloride ABG Glucose VBG pH Oxyhemoglobin Sodium Chloride Carbon Dioxide BUN Creatinine Glucose POC Glucose Lactic Acid Calcium AST 184 H ALT 113 H Alkaline Phosphatase Lactate Dehydrogenase 769 H NT-Pro-B Natriuret Pep Total Protein Albumin Arterial Blood Glucose Arterial Blood Ionized Calcium Crossmatch See Detail 10/02/20 10/02/20 10/02/20 16:25 16:35 16:35 WBC RBC Hgb Hct MCV MCH MCHC RDW Plt Count Lymph % (Auto) Lymph # (Auto) [place]inger # (Auto) Seg Neutrophils % Seg Neuts % (Manual) Lymphocytes % (Manual) Monocytes % (Manual) Nucleated RBC % Seg Neutrophils # Seg Neutrophils # Man Lymphocytes # (Manual) Monocytes # (Manual) PT INR APTT Fibrinogen D-Dimer ABG pH 7.031 L* POC ABG pCO2 POC ABG pO2 ABG pO2 116.8 H ABG HCO3 12.7 L ABG Base Excess -16.9 L ABG Hemoglobin 7.8 L ABG Sodium ABG Chloride ABG Glucose VBG pH Oxyhemoglobin 94.9 L Sodium Chloride Carbon Dioxide BUN Creatinine Glucose 403 H POC Glucose Lactic Acid 11.40 H* Calcium 6.3 L D AST 70 H ALT Alkaline Phosphatase Lactate Dehydrogenase NT-Pro-B Natriuret Pep Total Protein 1.9 L D Albumin 1.2 L Arterial Blood Glucose Arterial Blood Ionized Calcium Crossmatch 10/02/20 10/02/20 10/02/20 18:18 18:18 22:30 WBC 11.5 H RBC 2.06 L Hgb 5.5 L* D Hct 17.3 L* D MCV MCH 27 L MCHC RDW 19.5 H Plt Count 60 L Lymph % (Auto) Lymph # (Auto) [place]inger # (Auto) Seg Neutrophils % Seg Neuts % (Manual) Lymphocytes % (Manual) 8.0 L Monocytes % (Manual) 8.0 H Nucleated RBC % 8.0 H Seg Neutrophils # Seg Neutrophils # Man Lymphocytes # (Manual) 0.9 L Monocytes # (Manual) 0.9 H PT 37.1 H INR 3.71 H APTT 135.8 H* Fibrinogen D-Dimer ABG pH 7.067 L* POC ABG pCO2 POC ABG pO2 ABG pO2 183.0 H ABG HCO3 14.1 L ABG Base Excess -15.1 L ABG Hemoglobin 7.7 L ABG Sodium ABG Chloride ABG Glucose VBG pH Oxyhemoglobin Sodium Chloride Carbon Dioxide BUN Creatinine Glucose POC Glucose Lactic Acid Calcium AST ALT Alkaline Phosphatase Lactate Dehydrogenase NT-Pro-B Natriuret Pep Total Protein Albumin Arterial Blood Glucose Arterial Blood Ionized Calcium Crossmatch 10/02/20 10/02/20 10/03/20 Unknown Unknown 00:01 WBC RBC Hgb Hct MCV MCH MCHC RDW Plt Count Lymph % (Auto) Lymph # (Auto) [place]inger # (Auto) Seg Neutrophils % Seg Neuts % (Manual) Lymphocytes % (Manual) Monocytes % (Manual) Nucleated RBC % Seg Neutrophils # Seg Neutrophils # Man Lymphocytes # (Manual) Monocytes # (Manual) PT 61.1 H INR 6.92 H* APTT 158.7 H* Fibrinogen < 60 L* D-Dimer > 51641 H ABG pH POC ABG pCO2 POC ABG pO2 ABG pO2 ABG HCO3 ABG Base Excess ABG Hemoglobin ABG Sodium ABG Chloride ABG Glucose VBG pH 6.949 L* Oxyhemoglobin Sodium Chloride Carbon Dioxide BUN Creatinine Glucose POC Glucose 196 H Lactic Acid Calcium AST ALT Alkaline Phosphatase Lactate Dehydrogenase NT-Pro-B Natriuret Pep Total Protein Albumin Arterial Blood Glucose Arterial Blood Ionized Calcium Crossmatch 10/03/20 10/03/20 10/03/20 00:40 00:40 00:40 WBC RBC Hgb Hct MCV MCH MCHC RDW Plt Count Lymph % (Auto) Lymph # (Auto) [place]inger # (Auto) Seg Neutrophils % Seg Neuts % (Manual) Lymphocytes % (Manual) Monocytes % (Manual) Nucleated RBC % Seg Neutrophils # Seg Neutrophils # Man Lymphocytes # (Manual) Monocytes # (Manual) PT 15.1 H INR 1.21 H APTT Fibrinogen D-Dimer ABG pH POC ABG pCO2 POC ABG pO2 ABG pO2 ABG HCO3 ABG Base Excess ABG Hemoglobin ABG Sodium ABG Chloride ABG Glucose VBG pH Oxyhemoglobin Sodium 136 L Chloride Carbon Dioxide BUN Creatinine 1.6 H D Glucose 106 H POC Glucose Lactic Acid 5.60 H* Calcium 6.5 L AST 232 H ALT 104 H Alkaline Phosphatase Lactate Dehydrogenase NT-Pro-B Natriuret Pep Total Protein 3.9 L D Albumin 2.4 L Arterial Blood Glucose Arterial Blood Ionized Calcium Crossmatch 10/03/20 10/03/20 10/03/20 02:08 02:08 02:08 WBC 17.6 H RBC 3.27 L Hgb 9.9 L D Hct 29.9 L D MCV MCH MCHC RDW 16.5 H Plt Count 75 L Lymph % (Auto) Lymph # (Auto) [place]inger # (Auto) Seg Neutrophils % Seg Neuts % (Manual) 76.0 H Lymphocytes % (Manual) Monocytes % (Manual) Nucleated RBC % 8.0 H Seg Neutrophils # Seg Neutrophils # Man 13.4 H Lymphocytes # (Manual) Monocytes # (Manual) PT INR APTT Fibrinogen D-Dimer ABG pH POC ABG pCO2 POC ABG pO2 ABG pO2 ABG HCO3 ABG Base Excess ABG Hemoglobin ABG Sodium ABG Chloride ABG Glucose VBG pH Oxyhemoglobin Sodium Chloride Carbon Dioxide 19 L BUN Creatinine 1.4 H Glucose 306 H POC Glucose Lactic Acid 10.50 H* Calcium 6.4 L AST ALT Alkaline Phosphatase Lactate Dehydrogenase NT-Pro-B Natriuret Pep Total Protein Albumin Arterial Blood Glucose Arterial Blood Ionized Calcium Crossmatch 10/03/20 10/03/20 10/03/20 02:42 03:59 05:31 WBC RBC Hgb Hct MCV MCH MCHC RDW Plt Count Lymph % (Auto) Lymph # (Auto) [place] # (Auto) Seg Neutrophils % Seg Neuts % (Manual) Lymphocytes % (Manual) Monocytes % (Manual) Nucleated RBC % Seg Neutrophils # Seg Neutrophils # Man Lymphocytes # (Manual) Monocytes # (Manual) PT INR APTT Fibrinogen D-Dimer ABG pH 7.144 L POC ABG pCO2 54.4 H POC ABG pO2 ABG pO2 ABG HCO3 ABG Base Excess ABG Hemoglobin 10.0 L ABG Sodium ABG Chloride 108.0 H ABG Glucose 306 H VBG pH Oxyhemoglobin Sodium Chloride Carbon Dioxide BUN Creatinine Glucose POC Glucose 209 H Lactic Acid 9.20 H* Calcium AST ALT Alkaline Phosphatase Lactate Dehydrogenase NT-Pro-B Natriuret Pep Total Protein Albumin Arterial Blood Glucose 306 H Arterial Blood Ionized Calcium 3.7 L Crossmatch 10/03/20 10/03/20 10/03/20 09:00 09:00 09:00 WBC 27.4 H RBC 2.84 L Hgb 8.5 L Hct 25.1 L MCV MCH MCHC RDW 16.1 H Plt Count 72 L Lymph % (Auto) Lymph # (Auto) [place] # (Auto) Seg Neutrophils % Seg Neuts % (Manual) Lymphocytes % (Manual) 11.0 L Monocytes % (Manual) Nucleated RBC % 3.0 H Seg Neutrophils # Seg Neutrophils # Man 18.4 H Lymphocytes # (Manual) Monocytes # (Manual) 1.9 H PT INR APTT Fibrinogen D-Dimer ABG pH POC ABG pCO2 POC ABG pO2 ABG pO2 ABG HCO3 ABG Base Excess ABG Hemoglobin ABG Sodium ABG Chloride ABG Glucose VBG pH Oxyhemoglobin Sodium Chloride Carbon Dioxide BUN Creatinine 1.7 H Glucose 216 H POC Glucose Lactic Acid 9.20 H* Calcium 6.3 L AST 331 H ALT 171 H Alkaline Phosphatase Lactate Dehydrogenase NT-Pro-B Natriuret Pep Total Protein 3.7 L Albumin 1.9 L Arterial Blood Glucose Arterial Blood Ionized Calcium Crossmatch 10/03/20 10/03/20 10/03/20 11:20 11:46 11:50 WBC 28.7 H RBC 2.67 L Hgb 8.0 L Hct 23.7 L MCV MCH MCHC RDW 16.6 H Plt Count 76 L Lymph % (Auto) Lymph # (Auto) [place] # (Auto) Seg Neutrophils % Seg Neuts % (Manual) Lymphocytes % (Manual) Monocytes % (Manual) Nucleated RBC % Seg Neutrophils # Seg Neutrophils # Man Lymphocytes # (Manual) Monocytes # (Manual) PT INR APTT Fibrinogen D-Dimer ABG pH POC ABG pCO2 POC ABG pO2 ABG pO2 ABG HCO3 ABG Base Excess ABG Hemoglobin ABG Sodium ABG Chloride ABG Glucose VBG pH Oxyhemoglobin Sodium Chloride Carbon Dioxide BUN Creatinine Glucose POC Glucose 125 H Lactic Acid 8.00 H* Calcium AST ALT Alkaline Phosphatase Lactate Dehydrogenase NT-Pro-B Natriuret Pep Total Protein Albumin Arterial Blood Glucose Arterial Blood Ionized Calcium Crossmatch 10/03/20 10/04/20 10/04/20 11:50 00:40 00:40 WBC RBC Hgb 6.8 L Hct 19.4 L* MCV MCH MCHC RDW Plt Count 49 L Lymph % (Auto) Lymph # (Auto) [place] # (Auto) Seg Neutrophils % Seg Neuts % (Manual) Lymphocytes % (Manual) Monocytes % (Manual) Nucleated RBC % Seg Neutrophils # Seg Neutrophils # Man Lymphocytes # (Manual) Monocytes # (Manual) PT INR APTT Fibrinogen D-Dimer ABG pH 7.244 L POC ABG pCO2 POC ABG pO2 ABG pO2 ABG HCO3 ABG Base Excess -4.5 L ABG Hemoglobin 7.3 L ABG Sodium ABG Chloride ABG Glucose VBG pH Oxyhemoglobin Sodium Chloride Carbon Dioxide BUN Creatinine Glucose POC Glucose Lactic Acid Calcium AST ALT Alkaline Phosphatase Lactate Dehydrogenase NT-Pro-B Natriuret Pep Total Protein Albumin Arterial Blood Glucose Arterial Blood Ionized Calcium Crossmatch 10/04/20 10/04/20 10/04/20 03:53 10:00 10:00 WBC 14.6 H RBC 2.57 L Hgb 7.6 L Hct 22.5 L MCV MCH MCHC RDW 15.8 H Plt Count 38 L Lymph % (Auto) 7.7 L Lymph # (Auto) 1.1 L Grainger # (Auto) 0.9 H Seg Neutrophils % 85.6 H Seg Neuts % (Manual) Lymphocytes % (Manual) Monocytes % (Manual) Nucleated RBC % Seg Neutrophils # 12.5 H Seg Neutrophils # Man Lymphocytes # (Manual) Monocytes # (Manual) PT INR APTT Fibrinogen D-Dimer ABG pH POC ABG pCO2 POC ABG pO2 110.6 H ABG pO2 ABG HCO3 ABG Base Excess ABG Hemoglobin 6.7 L ABG Sodium 132.0 L ABG Chloride ABG Glucose 111 H VBG pH Oxyhemoglobin Sodium 134 L D Chloride 97.6 L Carbon Dioxide BUN Creatinine 1.7 H Glucose POC Glucose Lactic Acid Calcium 6.3 L AST 203 H ALT 81 H Alkaline Phosphatase Lactate Dehydrogenase NT-Pro-B Natriuret Pep Total Protein 3.9 L Albumin 2.3 L Arterial Blood Glucose 111 H Arterial Blood Ionized Calcium 3.5 L Crossmatch 10/04/20 10/04/20 10/04/20 10:00 10:00 10:14 WBC RBC Hgb Hct MCV MCH MCHC RDW Plt Count Lymph % (Auto) Lymph # (Auto) [place] # (Auto) Seg Neutrophils % Seg Neuts % (Manual) Lymphocytes % (Manual) Monocytes % (Manual) Nucleated RBC % Seg Neutrophils # Seg Neutrophils # Man Lymphocytes # (Manual) Monocytes # (Manual) PT INR APTT Fibrinogen D-Dimer > 57410 H ABG pH POC ABG pCO2 POC ABG pO2 ABG pO2 ABG HCO3 ABG Base Excess ABG Hemoglobin ABG Sodium ABG Chloride ABG Glucose VBG pH Oxyhemoglobin Sodium Chloride Carbon Dioxide BUN Creatinine Glucose POC Glucose Lactic Acid 3.90 H* Calcium AST ALT Alkaline Phosphatase Lactate Dehydrogenase NT-Pro-B Natriuret Pep 2788 H Total Protein Albumin Arterial Blood Glucose Arterial Blood Ionized Calcium Crossmatch 10/04/20 10/04/20 10/04/20 14:00 14:00 18:00 WBC 15.7 H RBC 3.17 L Hgb 9.3 L 9.6 L Hct 27.2 L 28.0 L MCV MCH MCHC RDW 16.9 H Plt Count 41 L Lymph % (Auto) 8.6 L Lymph # (Auto) [place]inger # (Auto) 0.9 H Seg Neutrophils % 85.4 H Seg Neuts % (Manual) Lymphocytes % (Manual) Monocytes % (Manual) Nucleated RBC % Seg Neutrophils # 13.4 H Seg Neutrophils # Man Lymphocytes # (Manual) Monocytes # (Manual) PT INR APTT Fibrinogen D-Dimer ABG pH POC ABG pCO2 POC ABG pO2 ABG pO2 ABG HCO3 ABG Base Excess ABG Hemoglobin ABG Sodium ABG Chloride ABG Glucose VBG pH Oxyhemoglobin Sodium 133 L Chloride 96.4 L Carbon Dioxide BUN 18 H Creatinine 1.7 H Glucose POC Glucose Lactic Acid Calcium 6.3 L AST ALT Alkaline Phosphatase Lactate Dehydrogenase NT-Pro-B Natriuret Pep Total Protein Albumin Arterial Blood Glucose Arterial Blood Ionized Calcium Crossmatch 10/04/20 10/04/20 10/05/20 18:00 22:00 05:00 WBC 17.6 H RBC 3.34 L Hgb 9.9 L Hct 29.4 L MCV MCH MCHC RDW 17.1 H Plt Count 56 L Lymph % (Auto) 8.5 L Lymph # (Auto) [place]inger # (Auto) 1.0 H Seg Neutrophils % 85.1 H Seg Neuts % (Manual) Lymphocytes % (Manual) Monocytes % (Manual) Nucleated RBC % Seg Neutrophils # 15.0 H Seg Neutrophils # Man Lymphocytes # (Manual) Monocytes # (Manual) PT INR APTT Fibrinogen D-Dimer ABG pH POC ABG pCO2 POC ABG pO2 ABG pO2 ABG HCO3 ABG Base Excess ABG Hemoglobin ABG Sodium ABG Chloride ABG Glucose VBG pH Oxyhemoglobin Sodium 136 L Chloride Carbon Dioxide BUN 18 H Creatinine 1.7 H Glucose POC Glucose Lactic Acid 2.30 H* Calcium 6.6 L AST ALT Alkaline Phosphatase Lactate Dehydrogenase NT-Pro-B Natriuret Pep Total Protein Albumin Arterial Blood Glucose Arterial Blood Ionized Calcium Crossmatch 10/05/20 10/05/20 05:00 05:03 WBC RBC Hgb Hct MCV MCH MCHC RDW Plt Count Lymph % (Auto) Lymph # (Auto) [place] # (Auto) Seg Neutrophils % Seg Neuts % (Manual) Lymphocytes % (Manual) Monocytes % (Manual) Nucleated RBC % Seg Neutrophils # Seg Neutrophils # Man Lymphocytes # (Manual) Monocytes # (Manual) PT INR APTT Fibrinogen D-Dimer ABG pH 7.458 H POC ABG pCO2 POC ABG pO2 ABG pO2 74.3 L ABG HCO3 27.5 H ABG Base Excess 3.4 H ABG Hemoglobin 10.0 L ABG Sodium ABG Chloride ABG Glucose VBG pH Oxyhemoglobin 94.9 L Sodium Chloride Carbon Dioxide BUN 19 H Creatinine 1.8 H Glucose POC Glucose Lactic Acid Calcium 6.8 L AST 225 H ALT 85 H Alkaline Phosphatase Lactate Dehydrogenase NT-Pro-B Natriuret Pep Total Protein 4.5 L Albumin 2.7 L Arterial Blood Glucose Arterial Blood Ionized Calcium Crossmatch
[2020-10-05] MEDS: TOPIRAMATE TAB 25 MG TAB PO SCH ×2 (11:37→21:34)
[2020-10-05] MEDS: busPIRone 5 MG TAB PO SCH (11:37)
[2020-10-05] MEDS ORDERED: MAGNESIUM SULFATE 40GM/1000ML 40 GM/1,000 ML BAG IV SCH (12:00)
--- NOTE | 2020-10-05 12:02 | Consultation ---
History of Present Illness - Reason for Consult Consult date: 10/05/20 sepsis Requesting physician: DOMINGO BENITEZ - History of Present Illness The patient is a 30-year-old female with GERD, hypertension, seizure disorder was admitted to the hospital at 36 weeks with seizures. She became hypoxic and pulseless requiring CPR. Following emergent section, patient developed hemorrhage, DIC. She has been admitted to ICU, remains on the vent. She was requiring multiple pressors and now has been weaned off all pressors except vasopressin. Infectious diseases was consulted due to concerns for sepsis. Persistent low-grade fevers present. Review of Systems: Limited due to vent Past History Past Medical History: GERD, hypertension, seizures, other (IBD, MIGRAINES, Anxiety, Genital Herpes, Obesity) Past Surgical History: Social history: , full code Family history: hypertension Medications and Allergies Allergies Allergy/AdvReac Type Severity Reaction Status Date / Time egg Allergy Severe Anaphylaxis Verified 05/22/20 16:09 NSAIDS (Non-Steroidal Allergy Severe Unknown Verified 05/22/20 16:09 Anti-Inflamma Sulfa (Sulfonamide Allergy Severe Anaphylaxis Verified 05/22/20 16:09 Antibiotics) ibuprofen Allergy Intermediate Bleeding Verified 05/22/20 16:09 latex Allergy Hives Verified 05/22/20 16:09 plecanatide [From Trulance] Allergy Anaphylaxis Verified 05/22/20 16:09 adhesive tape AdvReac Intermediate Unknown Verified 05/22/20 16:09 metoclopramide [From Reglan] AdvReac Unknown Verified 05/22/20 16:09 Home Medications Medication Instructions Recorded Confirmed Last Taken Type Pantoprazole [Protonix TAB] 20 mg PO DAILY 05/10/19 08/20/20 05/10/19 05:00 History busPIRone 15 mg PO DAILY 01/15/20 08/20/20 Unknown History Albuterol Sulfate [Proventil Hfa] 6.7 gm IH Q4HR PRN #1 hfa.aer.ad 04/07/20 08/20/20 Unknown Rx Topiramate (Nf) [Trokendi XR CAP] 100 mg PO DAILY 08/20/20 08/20/20 Unknown History oxyCODONE /ACETAMINOPHEN [Percocet 1 tab PO Q6HR 08/20/20 08/20/20 Unknown History 5/325 mg] Active Meds: Active Medications Lipase/Protease/Amylase (Lipase 10,500/Protease 25,000/Amylase 43,750 (Units) Dr Cap) 1 each FEEDTUBE PRN PRN PRN Reason: For Clogged Feeding Tube Buspirone HCl (Buspirone 5 Mg Tab) 15 mg PO DAILY ERINN Last Admin: 10/05/20 11:37 Dose: 15 mg Documented by: Famotidine (Famotidine 20 Mg/2 Ml Inj) 20 mg IV BID ERINN Last Admin: 10/05/20 09:24 Dose: 20 mg Documented by: Fentanyl (Fentanyl 100 Mcg/2 Ml Inj) 50 mcg IV Q2H PRN PRN Reason: agitation/sedation Last Admin: 10/04/20 15:21 Dose: 50 mcg Documented by: Hydrophilic Ointment (Lip Therapy Vaseline) 1 applic TP Q2HR PRN PRN Reason: Dry Lips Oxytocin/Sodium Chloride (Pitocin/Ns 30 Unit/500ml) 30 units in 500 mls @ 0 mls/hr IV TITR ERINN; Protocol Vasopressin 20 unit/ Sodium (Chloride) 101 mls @ 9.09 mls/hr IV TITR ERINN Last Admin: 10/04/20 10:02 Dose: 0.03 units/min, 9.09 mls/hr Documented by: Phenylephrine HCl 100 mg/ (Sodium Chloride) 100 mls @ 3 mls/hr IV TITR ERINN; Protocol Last Admin: 10/03/20 08:35 Dose: 380 mcg/min, 22.8 mls/hr Documented by: Epinephrine 8 mg/ Sodium (Chloride) 250 mls @ 3.75 mls/hr IV TITR ERINN; Protocol Last Titration: 10/04/20 11:06 Dose: 0 mcg/min, 0 mls/hr Documented by: Lactated Ringer's (Lactated Ringers) 1,000 mls @ 999 mls/hr IV DIRECT ERINN Stop: 10/07/20 19:46 Last Infusion: 10/03/20 07:50 Dose: Infused Documented by: Norepinephrine 8 mg/ Sodium (Chloride) 250 mls @ 3.75 mls/hr IV TITR ERINN; Protocol Last Titration: 10/04/20 02:06 Dose: 0 mcg/min, 0 mls/hr Documented by: Fentanyl Citrate (Fentanyl Drip Premix) 2,000 mcg in 100 mls @ 6.235 mls/hr IV TITR ERINN; Protocol Last Admin: 10/05/20 05:20 Dose: 1 mcg/kg/hr, 6.235 mls/hr Documented by: Dextrose (D10w) 1,000 mls @ 75 mls/hr IV DIRECT ERINN Last Admin: 10/05/20 07:43 Dose: 75 mls/hr Documented by: Magnesium Sulfate (Magnesium Sulfate 40gm/1000ml) 40 gm in 1,000 mls @ 25 mls/hr IV DIRECT ERINN Cefepime HCl (Cefepime/Ns 2 Gm/100 Ml) 2 gm in 100 mls @ 200 mls/hr IV Q24HR ERINN; Protocol Lorazepam (Lorazepam 2 Mg/Ml Vial) 2 mg IV Q2H PRN PRN Reason: Seizures Last Admin: 10/04/20 06:52 Dose: 2 mg Documented by: Multi-Ingred Cream/Lotion/Oil/Oint (Mineral Oil/Petrolatum, White Ophth Oint 3.5 Gm) 1 applic OU Q4HR PRN PRN Reason: Dry Eye(s) Simple Syrup (Simple Syrup 15 Ml) 15 ml FEEDTUBE PRN PRN PRN Reason: Hypoglycemia Simple Syrup (Simple Syrup 15 Ml) 30 ml FEEDTUBE PRN PRN PRN Reason: Hypoglycemia Sodium Bicarbonate (Sodium Bicarbonate 325 Mg Tab) 325 mg FEEDTUBE PRN PRN PRN Reason: For Clogged Feeding Tube Topiramate (Topiramate Tab 25 Mg Tab) 50 mg PO Q12HR ERINN Last Admin: 10/05/20 11:37 Dose: 50 mg Documented by: Physical Examination - Physical Exam Narrative exam: Physical Exam: Constitutional: sedated, intubated, on the vent Head, Ears, Nose: Normocephalic, atraumatic. External ears, nose normal Eyes: Conjunctivae/corneas clear. No icterus. No ptosis. Neck: intubated Oral: intubated Cardiovascular: S1, S2 + Respiratory: AE fair bilaterally and equal GI: Soft, bowel sounds hypoactive, drain present, lower abdominal incision present with dressing, right subclavian central line present Musculoskeletal: No pedal edema, no cyanosis. Skin: No rash or abscess Hem/Lymphatic: No palpable cervical or supraclavicular nodes. No lymphangitis Psych: no agitation Neurological: sedated, intubated, on the vent, exam limited - Constitutional Vitals: Vital Signs Temp Pulse Resp BP Pulse Ox 100.0 F H 96 H 25 H 131/83 100 10/05/20 08:00 10/05/20 11:45 10/05/20 11:45 10/05/20 11:45 10/05/20 11:45 Temperature -Last 24 Hours Temperature 100.0 F Temperature 100.0 F Temperature 98.3 F Temperature 98.6 F Temperature 100.1 F Temperature 99.8 F Temperature 100.4 F Temperature 101.3 F Temperature 100.4 F Temperature 100.5 F Temperature 100.7 F Temperature 100.7 F Results - Labs CBC & Chem 7: 10/05/20 05:00 10/05/20 10:10 Labs: Abnormal lab results 10/02/20 10/04/20 10/04/20 Range/Units 12:50 14:00 14:00 WBC (4.5-11.0) K/mm3 RBC (3.65-5.03) M/mm3 Hgb 9.3 L (10.1-14.3) gm/dl Hct 27.2 L (30.3-42.9) % RDW (13.2-15.2) % Plt Count (140-440) K/mm3 Lymph % (Auto) (13.4-35.0) % [place] # (Auto) (0.0-0.8) K/mm3 Seg Neutrophils % (40.0-70.0) % Seg Neutrophils # (1.8-7.7) K/mm3 ABG pH (7.350-7.450) pH Units ABG pO2 (80.0-90.0) mm Hg ABG HCO3 (20.0-26.0) mmol/L ABG Base Excess (-2.0-3.0) mmol/L ABG Hemoglobin (12.0-16.0) gm/dl Oxyhemoglobin (95.0-99.0) % Sodium 133 L (137-145) mmol/L Chloride 96.4 L (98-107) mmol/L Carbon Dioxide (22-30) mmol/L BUN 18 H (7-17) mg/dL Creatinine 1.7 H (0.6-1.2) mg/dL Lactic Acid (0.7-2.0) mmol/L Calcium 6.3 L (8.4-10.2) mg/dL AST (5-40) units/L ALT (7-56) units/L Total Protein (6.3-8.2) g/dL Albumin (3.9-5) g/dL Crossmatch See Detail 10/04/20 10/04/20 10/04/20 Range/Units 18:00 18:00 22:00 WBC 15.7 H (4.5-11.0) K/mm3 RBC 3.17 L (3.65-5.03) M/mm3 Hgb 9.6 L (10.1-14.3) gm/dl Hct 28.0 L (30.3-42.9) % RDW 16.9 H (13.2-15.2) % Plt Count 41 L (140-440) K/mm3 Lymph % (Auto) 8.6 L (13.4-35.0) % [place] # (Auto) 0.9 H (0.0-0.8) K/mm3 Seg Neutrophils % 85.4 H (40.0-70.0) % Seg Neutrophils # 13.4 H (1.8-7.7) K/mm3 ABG pH (7.350-7.450) pH Units ABG pO2 (80.0-90.0) mm Hg ABG HCO3 (20.0-26.0) mmol/L ABG Base Excess (-2.0-3.0) mmol/L ABG Hemoglobin (12.0-16.0) gm/dl Oxyhemoglobin (95.0-99.0) % Sodium 136 L (137-145) mmol/L Chloride (98-107) mmol/L Carbon Dioxide (22-30) mmol/L BUN 18 H (7-17) mg/dL Creatinine 1.7 H (0.6-1.2) mg/dL Lactic Acid 2.30 H* (0.7-2.0) mmol/L Calcium 6.6 L (8.4-10.2) mg/dL AST (5-40) units/L ALT (7-56) units/L Total Protein (6.3-8.2) g/dL Albumin (3.9-5) g/dL Crossmatch 10/05/20 10/05/20 10/05/20 Range/Units 05:00 05:00 05:03 WBC 17.6 H (4.5-11.0) K/mm3 RBC 3.34 L (3.65-5.03) M/mm3 Hgb 9.9 L (10.1-14.3) gm/dl Hct 29.4 L (30.3-42.9) % RDW 17.1 H (13.2-15.2) % Plt Count 56 L (140-440) K/mm3 Lymph % (Auto) 8.5 L (13.4-35.0) % [place] # (Auto) 1.0 H (0.0-0.8) K/mm3 Seg Neutrophils % 85.1 H (40.0-70.0) % Seg Neutrophils # 15.0 H (1.8-7.7) K/mm3 ABG pH 7.458 H (7.350-7.450) pH Units ABG pO2 74.3 L (80.0-90.0) mm Hg ABG HCO3 27.5 H (20.0-26.0) mmol/L ABG Base Excess 3.4 H (-2.0-3.0) mmol/L ABG Hemoglobin 10.0 L (12.0-16.0) gm/dl Oxyhemoglobin 94.9 L (95.0-99.0) % Sodium (137-145) mmol/L Chloride (98-107) mmol/L Carbon Dioxide (22-30) mmol/L BUN 19 H (7-17) mg/dL Creatinine 1.8 H (0.6-1.2) mg/dL Lactic Acid (0.7-2.0) mmol/L Calcium 6.8 L (8.4-10.2) mg/dL AST 225 H (5-40) units/L ALT 85 H (7-56) units/L Total Protein 4.5 L (6.3-8.2) g/dL Albumin 2.7 L (3.9-5) g/dL Crossmatch 10/05/20 Range/Units 10:10 WBC (4.5-11.0) K/mm3 RBC (3.65-5.03) M/mm3 Hgb (10.1-14.3) gm/dl Hct (30.3-42.9) % RDW (13.2-15.2) % Plt Count (140-440) K/mm3 Lymph % (Auto) (13.4-35.0) % [place] # (Auto) (0.0-0.8) K/mm3 Seg Neutrophils % (40.0-70.0) % Seg Neutrophils # (1.8-7.7) K/mm3 ABG pH (7.350-7.450) pH Units ABG pO2 (80.0-90.0) mm Hg ABG HCO3 (20.0-26.0) mmol/L ABG Base Excess (-2.0-3.0) mmol/L ABG Hemoglobin (12.0-16.0) gm/dl Oxyhemoglobin (95.0-99.0) % Sodium (137-145) mmol/L Chloride (98-107) mmol/L Carbon Dioxide 31 H (22-30) mmol/L BUN 19 H (7-17) mg/dL Creatinine 1.8 H (0.6-1.2) mg/dL Lactic Acid (0.7-2.0) mmol/L Calcium 7.0 L (8.4-10.2) mg/dL AST (5-40) units/L ALT (7-56) units/L Total Protein (6.3-8.2) g/dL Albumin (3.9-5) g/dL Crossmatch - Imaging and Cardiology Chest x-ray: report reviewed, image reviewed (b/l air space opacities) Assessment and Plan Cultures: None A/P: 30-year-old female with GERD, hypertension, seizure disorder was admitted to the hospital at 36 weeks with seizures. She became hypoxic and pulseless requiring CPR. Following emergent section, patient developed hemorrhage, DIC. She has been admitted to ICU, remains on the vent: #Shock, DIC, hemorrhage: ?possible sepsis. Possible pneumonia versus fluid overload #Acute kidney injury #Transaminitis #Preeclampsia Recs: ET aspirate cultures, blood cultures ordered Empiric cefepime, renally adjusted Venancio Craven MD, FACP [facility] O: [phone] F: [phone]
[2020-10-05] MEDS: fentaNYL 100 MCG/2 ML INJ IV PRN (16:02)
[2020-10-05] MEDS: CEFEPIME/NS 2 GM/100 ML 2 GM/100 ML BAG IV SCH (16:11)
[2020-10-05 16:31] LABS: Calcium 7.2 mg/dL (8.4-10.2)
[2020-10-05] MEDS: LORazepam 2 MG/ML VIAL IV PRN (16:46)
[2020-10-05] MEDS: ACETAMINOPHEN 325 MG/10.15 ML ORAL LIQD UNIT DOSE FEEDTUBE PRN (16:47)
--- NOTE | 2020-10-05 21:20 | Progress Note ---
Assessment and Plan Impression: * Nonoliguric acute kidney injury secondary to ischemic ATN * Cardiac arrest * Acute hypoxic respiratory failure * DIC * Anemia secondary to acute blood loss * hemorrhage * Mixed respiratory/metabolic acidosis * Presumed eclampsia Plan: * Renal function is stable. Volume status/lytes acceptable. There is no need for renal replacement therapy at this time * Transfusion of blood products per primary team and hematology * Pressors prn to maintain MAP>65 * [id number] per CCM * Strict I/O * Vent management per pulmonary/CCM * Dose medications for renal function * Avoid potential nephrotoxins * Renally dose medications Subjective Date of service: 10/05/20 Principal diagnosis: Eclampsia/HELLP Syndrome, ADOLPH, DIC; s/p , s/p supracervical hyst Interval history: Patient was seen for her renal issues Nursing, interdisciplinary and consult notes were reviewed Vitals, input and output, medications and labs were reviewed Remains intubated Good urine output Objective - Exam Narrative Exam: Constitutional: Sedated. Intubated. Head: Normocephalic/atraumatic Neck: Supple Lungs: Intubated. Mechanical breath sounds. Cardiovascular: RRR, no M/R/G Abdomen: Soft, nontender, NABS Extremities: No edema, pulses within normal limits Skin: Intact, no rash Neuro: Sedated. - Vital Signs Vital signs: Vital Signs - 12hr 10/05/20 10/05/20 10/05/20 09:30 09:45 10:00 Temperature Pulse Rate 94 H 95 H 100 H Pulse Rate [ From Monitor] Respiratory 26 H 28 H 28 H Rate Blood Pressure 149/92 144/86 151/92 O2 Sat by Pulse 99 96 100 Oximetry 10/05/20 10/05/20 10/05/20 10:15 10:30 10:45 Temperature Pulse Rate 97 H 96 H 96 H Pulse Rate [ From Monitor] Respiratory 28 H 26 H 25 H Rate Blood Pressure 146/89 139/87 135/79 O2 Sat by Pulse 98 97 100 Oximetry 10/05/20 10/05/20 10/05/20 11:00 11:14 11:15 Temperature Pulse Rate 97 H 100 H 98 H Pulse Rate [ From Monitor] Respiratory 25 H 32 H Rate Blood Pressure 141/84 141/84 147/87 O2 Sat by Pulse 100 98 98 Oximetry 10/05/20 10/05/20 10/05/20 11:30 11:45 12:00 Temperature 100.3 F H Pulse Rate 97 H 96 H 100 H Pulse Rate [ 100 H From Monitor] Respiratory 25 H 25 H 26 H Rate Blood Pressure 138/82 131/83 132/87 O2 Sat by Pulse 100 100 100 Oximetry 10/05/20 10/05/20 10/05/20 12:15 12:30 12:45 Temperature Pulse Rate 96 H 94 H 95 H Pulse Rate [ From Monitor] Respiratory 27 H 28 H 30 H Rate Blood Pressure 138/82 132/80 137/83 O2 Sat by Pulse 100 100 100 Oximetry 10/05/20 10/05/20 10/05/20 13:00 13:15 13:30 Temperature Pulse Rate 94 H 97 H 96 H Pulse Rate [ From Monitor] Respiratory 26 H 27 H 26 H Rate Blood Pressure 137/83 138/85 141/84 O2 Sat by Pulse 100 100 100 Oximetry 10/05/20 10/05/20 10/05/20 13:45 14:00 14:15 Temperature Pulse Rate 101 H 98 H 98 H Pulse Rate [ From Monitor] Respiratory 25 H 27 H 28 H Rate Blood Pressure 139/89 143/90 144/82 O2 Sat by Pulse 100 100 100 Oximetry 10/05/20 10/05/20 10/05/20 14:30 14:45 15:00 Temperature Pulse Rate 99 H 97 H 98 H Pulse Rate [ From Monitor] Respiratory 29 H 26 H 27 H Rate Blood Pressure 149/86 157/94 164/98 O2 Sat by Pulse 100 100 100 Oximetry 10/05/20 10/05/20 10/05/20 15:15 15:30 15:45 Temperature Pulse Rate 97 H 97 H 97 H Pulse Rate [ From Monitor] Respiratory 26 H 26 H 26 H Rate Blood Pressure 169/103 164/93 171/102 O2 Sat by Pulse 100 100 100 Oximetry 10/05/20 10/05/20 10/05/20 16:00 16:06 16:15 Temperature 101.5 F H Pulse Rate 102 H 97 H 99 H Pulse Rate [ 100 H From Monitor] Respiratory 26 H 22 Rate Blood Pressure 195/139 179/100 170/98 O2 Sat by Pulse 100 100 100 Oximetry 10/05/20 10/05/20 10/05/20 16:30 16:46 17:00 Temperature Pulse Rate 99 H 90 92 H Pulse Rate [ From Monitor] Respiratory 21 24 Rate Blood Pressure 188/98 147/89 157/82 O2 Sat by Pulse 100 100 95 Oximetry 10/05/20 10/05/20 10/05/20 17:15 17:30 17:45 Temperature Pulse Rate 94 H 95 H 96 H Pulse Rate [ From Monitor] Respiratory 21 23 22 Rate Blood Pressure 145/84 151/94 156/93 O2 Sat by Pulse 95 96 96 Oximetry 10/05/20 10/05/20 10/05/20 18:00 18:15 18:30 Temperature Pulse Rate 98 H 96 H 98 H Pulse Rate [ From Monitor] Respiratory 22 23 22 Rate Blood Pressure 162/81 162/88 156/93 O2 Sat by Pulse 96 95 96 Oximetry 10/05/20 10/05/20 10/05/20 18:45 19:00 19:15 Temperature Pulse Rate 98 H 99 H 98 H Pulse Rate [ From Monitor] Respiratory 21 20 Rate Blood Pressure 165/78 156/82 163/86 O2 Sat by Pulse 97 98 99 Oximetry 10/05/20 10/05/20 10/05/20 19:30 19:45 19:53 Temperature Pulse Rate 97 H 97 H 98 H Pulse Rate [ From Monitor] Respiratory 20 20 Rate Blood Pressure 161/81 158/84 158/84 O2 Sat by Pulse 99 99 98 Oximetry 10/05/20 20:00 Temperature 99.3 F Pulse Rate 98 H Pulse Rate [ 99 H From Monitor] Respiratory 20 Rate Blood Pressure 174/95 O2 Sat by Pulse 98 Oximetry - Lab 10/05/20 05:00 10/05/20 15:00 Most recent lab results ABG pH 7.458 pH Units (7.350-7.450) H 10/05/20 05:03 ABG pCO2 39.7 mm Hg 10/05/20 05:03 ABG pO2 74.3 mm Hg (80.0-90.0) L 10/05/20 05:03 ABG HCO3 27.5 mmol/L (20.0-26.0) H 10/05/20 05:03 ABG O2 Saturation 96.3 % (95.0-99.0) 10/05/20 05:03 Calcium 7.2 mg/dL (8.4-10.2) L 10/05/20 15:00 Medications & Allergies - Medications Allergies/Adverse Reactions: Allergies egg Allergy (Severe, Verified 05/22/20 16:09) Anaphylaxis NSAIDS (Non-Steroidal Anti-Inflamma Allergy (Severe, Verified 05/22/20 16:09) Unknown pt c/o Palpitations, nervous, had to take benadryl Sulfa (Sulfonamide Antibiotics) Allergy (Severe, Verified 05/22/20 16:09) Anaphylaxis SWELING,NUMBNESS ibuprofen Allergy (Intermediate, Verified 05/22/20 16:09) Bleeding latex Allergy (Verified 05/22/20 16:09) Hives plecanatide [From Trulance] Allergy (Verified 05/22/20 16:09) Anaphylaxis adhesive tape Adverse Reaction (Intermediate, Verified 05/22/20 16:09) Unknown PAPER TAPE OK metoclopramide [From Reglan] Adverse Reaction (Verified 05/22/20 16:09) Unknown Home Medications: Home Medications Medication Instructions Recorded Confirmed Last Taken Type Pantoprazole [Protonix TAB] 20 mg PO DAILY 05/10/19 08/20/20 05/10/19 05:00 History busPIRone 15 mg PO DAILY 01/15/20 08/20/20 Unknown History Albuterol Sulfate [Proventil Hfa] 6.7 gm IH Q4HR PRN #1 hfa.aer.ad 04/07/20 08/20/20 Unknown Rx Topiramate (Nf) [Trokendi XR CAP] 100 mg PO DAILY 08/20/20 08/20/20 Unknown History oxyCODONE /ACETAMINOPHEN [Percocet 1 tab PO Q6HR 08/20/20 08/20/20 Unknown History 5/325 mg] Active Medications: Generic Name Dose Route Start Last Admin Trade Name Freq PRN Reason Stop Dose Admin Acetaminophen 650 mg 10/05/20 16:34 10/05/20 16:47 Acetaminophen 325 Mg/10.15 Ml Oral Liqd Unit Dose FEEDTUBE 650 mg Q6H PRN Administration Non Cardiac Pain or Temp>100.5 Lipase/Protease/Amylase 1 each 10/05/20 11:09 Lipase 10,500/Protease 25,000/Amylase 43,750 (Units) Dr Barakat FEEDTUBE PRN PRN For Clogged Feeding Tube Buspirone HCl 15 mg 10/05/20 11:00 10/05/20 11:37 Buspirone 5 Mg Tab PO 15 mg DAILY ERINN Administration Famotidine 20 mg 10/05/20 10:00 10/05/20 09:24 Famotidine 20 Mg/2 Ml Inj IV 20 mg BID ERINN Administration Fentanyl 50 mcg 10/03/20 14:57 10/05/20 16:02 Fentanyl 100 Mcg/2 Ml Inj IV 50 mcg Q2H PRN Administration agitation/sedation Hydrophilic Ointment 1 applic 10/04/20 06:55 Lip Therapy Vaseline TP Q2HR PRN Dry Lips Oxytocin/Sodium Chloride 30 units in 500 mls @ 0 mls/hr 10/02/20 17:00 Pitocin/Ns 30 Unit/500ml IV TITR ERINN Protocol As Directed Vasopressin 20 unit/ Sodium 101 mls @ 9.09 mls/hr 10/02/20 17:00 10/04/20 10:02 Chloride IV 0.03 units/min TITR ERINN 9.09 mls/hr Administration 0.03 UNITS/MIN Phenylephrine HCl 100 mg/ 100 mls @ 3 mls/hr 10/02/20 16:30 10/03/20 08:35 Sodium Chloride IV 380 mcg/min TITR ERINN 22.8 mls/hr Administration Protocol 50 MCG/MIN Epinephrine 8 mg/ Sodium 250 mls @ 3.75 mls/hr 10/02/20 18:00 10/04/20 11:06 Chloride IV 0 mcg/min TITR ERINN 0 mls/hr Titration Protocol 2 MCG/MIN Lactated Ringer's 1,000 mls @ 999 mls/hr 10/02/20 18:45 10/03/20 07:50 Lactated Ringers IV 10/07/20 19:46 Infused DIRECT ERINN Infusion Norepinephrine 8 mg/ Sodium 250 mls @ 3.75 mls/hr 10/03/20 01:00 10/04/20 02:06 Chloride IV 0 mcg/min TITR ERINN 0 mls/hr Titration Protocol 2 MCG/MIN Fentanyl Citrate 2,000 mcg in 100 mls @ 6.235 mls/hr 10/04/20 07:00 10/05/20 19:50 Fentanyl Drip Premix IV 3 mcg/kg/hr TITR ERINN 18.705 mls/hr Titration Protocol 1 MCG/KG/HR Dextrose 1,000 mls @ 75 mls/hr 10/04/20 18:50 10/05/20 19:50 D10w IV 75 mls/hr DIRECT ERINN Administration Magnesium Sulfate 40 gm in 1,000 mls @ 25 mls/hr 10/05/20 12:00 Magnesium Sulfate 40gm/1000ml IV DIRECT ERINN 1 GM/HR Cefepime HCl 2 gm in 100 mls @ 200 mls/hr 10/05/20 17:00 10/05/20 16:11 Cefepime/Ns 2 Gm/100 Ml IV 200 mls/hr Q12H ERINN Administration Protocol Labetalol HCl 100 mg 10/05/20 22:00 Labetalol 100 Mg Tab PO BID ERINN Lorazepam 2 mg 10/02/20 22:05 10/05/20 16:46 Lorazepam 2 Mg/Ml Vial IV 2 mg Q2H PRN Administration Seizures Multi-Ingred Cream/Lotion/Oil/Oint 1 applic 10/04/20 06:55 Mineral Oil/Petrolatum, White Ophth Oint 3.5 Gm OU Q4HR PRN Dry Eye(s) Simple Syrup 15 ml 10/05/20 11:09 Simple Syrup 15 Ml FEEDTUBE PRN PRN Hypoglycemia Simple Syrup 30 ml 10/05/20 11:09 Simple Syrup 15 Ml FEEDTUBE PRN PRN Hypoglycemia Sodium Bicarbonate 325 mg 10/05/20 11:09 Sodium Bicarbonate 325 Mg Tab FEEDTUBE PRN PRN For Clogged Feeding Tube Topiramate 50 mg 10/05/20 11:00 10/05/20 11:37 Topiramate Tab 25 Mg Tab PO 50 mg Q12HR ERINN Administration
--- NOTE | 2020-10-06 03:00 | XRay Report ---
CHEST - 1 VIEW INDICATION: follow up respiratory failure COMPARISON: Yesterday FINDINGS: SUPPORT DEVICES: Stable support device positioning. HEART: Stable cardiomediastinal silhouette. LUNGS/PLEURA: Persistent moderate patchy multifocal airspace disease. ADDITIONAL FINDINGS: None. IMPRESSION: Unchanged exam. Signer Name: Chris Yoder MD Signed: 10/06/2020 2:56 AM Workstation Name: [id number]
[2020-10-06] MEDS: CEFEPIME/NS 2 GM/100 ML 2 GM/100 ML BAG IV SCH ×2 (04:53→19:06)
[2020-10-06 05:06] LABS: Basophils % (Auto) 0.3 % (0.0-1.8); Eosinophils # (Auto) 0.2 K/mm3 (0.0-0.4); Eosinophils % (Auto) 1.1 % (0.0-4.3); Hematocrit 30.7 % (30.3-42.9); Hemoglobin 10.4 gm/dl (10.1-14.3); Lymphocytes # (Auto) 1.4 K/mm3 (1.2-5.4); Lymphocytes % (Auto) 8.3 % (13.4-35.0); Mean Corpuscular HGB Conc 34 % (30-34); Mean Corpuscular Volume 88 fl (79-97); Monocytes # (Auto) 1.1 K/mm3 (0.0-0.8); Monocytes % (Auto) 6.5 % (0.0-7.3); Red Blood Count 3.47 M/mm3 (3.65-5.03); Red Cell Distribution Width 17.4 % (13.2-15.2)
[2020-10-06 05:09] LABS: Platelet Count 82 K/mm3 (140-440)
[2020-10-06 05:16] LABS: Albumin 2.6 g/dL (3.9-5); Calcium 7.2 mg/dL (8.4-10.2)
[2020-10-06] MEDS: fentaNYL DRIP Premix 2,000 MCG/100 ML BAG IV SCH ×2 (05:55→19:05)
--- NOTE | 2020-10-06 05:58 | Progress Note ---
Assessment and Plan A: POD#4 s/p repeat section at 36 wks secondary to Eclampsia and Cardiac Arrest with Resuscitation POD#4 s/p supracervical abdominal hysterectomy secondary to Uterine Atony, Hemorrhage and Disseminated Intravascular Coagulation (DIC) s/p multiple transfusions of blood products Acute Kidney Injury, nonoligouric P: Continue supportive care as recommended by Pulmonology/Critical Care, Internal Medicine, Nephrology and Hematology-Oncology Closely monitor clinical status Subjective - Subjective Date of service: 10/06/20 Principal diagnosis: Eclampsia/HELLP Syndrome, ADOLPH, DIC; s/p , s/p supracervical hyst Interval history: All consumer experience consultant recommendations noted and greatly appreciated. Pt remains intubated and sedated. Currently holding BP without pressors. Bowel movement yesterday. Art drainage appears more serosanguinous. Attempted to begin tube feeds yesterday. Pt receiving magnesium for seizure prophylaxis. Patient reports: bowel movement, no appetite normal, no voiding normally (chowdhury in place making clear urine ), no ambulating normally (SCDs in place ) : in NICU Objective - Vital Signs Latest vital signs: Vital Signs Temp Pulse Pulse Resp BP Pulse Ox 10/06/20 04:15 83 20 100/62 100 10/06/20 04:00 98.2 F 82 81 19 98/54 100 10/06/20 03:48 81 98/54 100 10/06/20 03:45 81 19 98/54 100 10/06/20 03:30 82 20 100/56 100 10/06/20 03:15 82 20 121/54 100 10/06/20 03:00 86 20 145/89 10/06/20 02:45 85 20 145/89 100 10/06/20 02:30 84 20 133/69 100 10/06/20 02:15 85 19 138/70 100 10/06/20 02:00 85 20 133/72 100 10/06/20 01:45 85 20 138/66 100 10/06/20 01:30 86 20 139/73 100 10/06/20 01:15 86 20 136/71 100 10/06/20 01:00 86 20 141/68 100 10/06/20 00:45 86 20 134/70 100 10/06/20 00:30 86 20 137/66 100 10/06/20 00:15 87 20 140/68 100 10/06/20 00:00 99.2 F 87 87 20 138/70 100 2120 23:45 87 20 142/76 100 20 23:43 88 143/77 100 20 23:30 88 20 142/74 100 20 23:18 88 20 143/77 100 20 23:15 88 20 143/77 100 20 23:00 88 20 152/73 99 20 22:45 89 20 151/82 98 10/05/20 22:30 91 H 20 153/86 99 10/05/20 22:15 89 20 163/86 98 10/05/20 22:00 91 H 20 151/86 96 10/05/20 21:45 91 H 20 151/86 100 10/05/20 21:34 93 H 149/84 10/05/20 21:30 93 H 21 149/84 99 10/05/20 21:15 94 H 20 148/83 100 10/05/20 21:00 95 H 20 142/90 99 10/05/20 20:45 95 H 18 157/86 99 10/05/20 20:30 95 H 18 153/86 99 20 20:15 95 H 17 163/83 99 10/05/20 20:00 99.3 F 98 H 99 H 20 174/95 98 10/05/20 19:53 98 H 158/84 98 10/05/20 19:45 97 H 20 158/84 99 10/05/20 19:30 97 H 20 161/81 99 10/05/20 19:15 98 H 20 163/86 99 10/05/20 19:00 99 H 21 156/82 98 20 18:45 98 H 21 165/78 97 20 18:30 98 H 22 156/93 96 20 18:15 96 H 23 162/88 95 20 18:00 98 H 22 162/81 96 20 17:45 96 H 22 156/93 96 20 17:30 95 H 23 151/94 96 20 17:15 94 H 21 145/84 95 10/05/20 17:00 92 H 24 157/82 95 10/05/20 16:46 90 21 147/89 100 10/05/20 16:30 99 H 21 188/98 100 10/05/20 16:15 99 H 22 170/98 100 10/05/20 16:06 97 H 179/100 100 10/05/20 16:00 101.5 F H 102 H 100 H 26 H 195/139 100 10/05/20 15:45 97 H 26 H 171/102 100 10/05/20 15:30 97 H 26 H 164/93 100 10/05/20 15:15 97 H 26 H 169/103 100 10/05/20 15:00 98 H 27 H 164/98 100 10/05/20 14:45 97 H 26 H 157/94 100 10/05/20 14:30 99 H 29 H 149/86 100 10/05/20 14:15 98 H 28 H 144/82 100 10/05/20 14:00 98 H 27 H 143/90 100 10/05/20 13:45 101 H 25 H 139/89 100 10/05/20 13:30 96 H 26 H 141/84 100 10/05/20 13:15 97 H 27 H 138/85 100 10/05/20 13:00 94 H 26 H 137/83 100 10/05/20 12:45 95 H 30 H 137/83 100 10/05/20 12:30 94 H 28 H 132/80 100 10/05/20 12:15 96 H 27 H 138/82 100 10/05/20 12:00 100.3 F H 100 H 100 H 26 H 132/87 100 10/05/20 11:45 96 H 25 H 131/83 100 10/05/20 11:30 97 H 25 H 138/82 100 10/05/20 11:15 98 H 32 H 147/87 98 10/05/20 11:14 100 H 141/84 98 10/05/20 11:00 97 H 25 H 141/84 100 10/05/20 10:45 96 H 25 H 135/79 100 10/05/20 10:30 96 H 26 H 139/87 97 10/05/20 10:15 97 H 28 H 146/89 98 10/05/20 10:00 100 H 28 H 151/92 100 10/05/20 09:45 95 H 28 H 144/86 96 10/05/20 09:30 94 H 26 H 149/92 99 10/05/20 09:15 96 H 24 139/85 100 10/05/20 09:00 96 H 25 H 144/85 99 10/05/20 08:45 96 H 26 H 156/87 99 10/05/20 08:30 98 H 32 H 158/94 98 10/05/20 08:29 98 H 158/94 98 10/05/20 08:15 97 H 25 H 143/80 100 10/05/20 08:00 100.0 F H 96 H 97 H 25 H 138/89 99 10/05/20 07:45 96 H 24 138/85 100 10/05/20 07:30 97 H 23 139/83 99 10/05/20 07:15 98 H 27 H 146/93 97 10/05/20 07:00 98 H 26 H 140/86 100 10/05/20 06:45 98 H 30 H 132/90 97 10/05/20 06:30 96 H 25 H 135/87 99 10/05/20 06:15 98 H 25 H 153/96 96 10/05/20 06:00 98 H 24 144/87 99 Intake and Output 10/05/20 10/05/20 10/06/20 14:59 22:59 06:59 Intake Total 488.75 1472.467 425.308 Output Total 1750 2405 1800 Balance -1261.25 -932.533 -1374.692 Intake: IV 143.75 1122.467 175.308 CEFEPIME/NS 2 GM/100 ML 2 100 gm In 100 ml @ 200 mls/ hr IV Q12H ERINN Rx#: [id number] D10w 1,000 ml @ 75 mls/hr 143.75 908.75 IV DIRECT ERINN Rx#: [id number] fentaNYL DRIP Premix 2, 113.717 175.308 000 mcg In 100 ml @ 1 MCG /KG/HR 6.235 mls/hr IV TITR ERINN Rx#:[id number] Oral 100 Intake, Free Water 300 100 200 Tube Feeding 45 150 50 Output: Drainage 625 375 400 Left 625 375 400 Urine 1125 2030 1400 Indwelling Catheter 1125 2030 1400 Other: Total, Intake Amount 15 25 0 Total, Output Amount 75 300 350 Voiding Method Indwelling Catheter Indwelling Catheter Indwelling Catheter Weight 124.7 kg 139.4 kg Patient Weight 10/06/20 06:59 Weight 139.4 kg - Exam Breasts: Present: deferred Abdomen: Present: soft, distention (mild ) Incision: Present: other (Art drain with serosanguinous output ), dressed - Labs Labs: Abnormal lab results 10/05/20 10/05/20 10/05/20 Range/Units 05:00 10:10 15:00 WBC (4.5-11.0) K/mm3 RBC (3.65-5.03) M/mm3 RDW (13.2-15.2) % Plt Count (140-440) K/mm3 Lymph % (Auto) (13.4-35.0) % [place] # (Auto) (0.0-0.8) K/mm3 Seg Neutrophils % (40.0-70.0) % Seg Neutrophils # (1.8-7.7) K/mm3 Potassium 3.5 L (3.6-5.0) mmol/L Carbon Dioxide 31 H 32 H (22-30) mmol/L BUN 19 H 19 H 19 H (7-17) mg/dL Creatinine 1.8 H 1.8 H 1.8 H (0.6-1.2) mg/dL Glucose (65-100) mg/dL POC Glucose (70-105) mg/dL Calcium 6.8 L 7.0 L 7.2 L (8.4-10.2) mg/dL Magnesium (1.7-2.3) mg/dL AST 225 H (5-40) units/L ALT 85 H (7-56) units/L Total Protein 4.5 L (6.3-8.2) g/dL Albumin 2.7 L (3.9-5) g/dL 10/05/20 10/06/20 10/06/20 Range/Units 19:40 01:05 04:00 WBC 17.1 H (4.5-11.0) K/mm3 RBC 3.47 L (3.65-5.03) M/mm3 RDW 17.4 H (13.2-15.2) % Plt Count 82 L (140-440) K/mm3 Lymph % (Auto) 8.3 L (13.4-35.0) % [place] # (Auto) 1.1 H (0.0-0.8) K/mm3 Seg Neutrophils % 83.8 H (40.0-70.0) % Seg Neutrophils # 14.3 H (1.8-7.7) K/mm3 Potassium (3.6-5.0) mmol/L Carbon Dioxide (22-30) mmol/L BUN (7-17) mg/dL Creatinine (0.6-1.2) mg/dL Glucose (65-100) mg/dL POC Glucose (70-105) mg/dL Calcium (8.4-10.2) mg/dL Magnesium 2.90 H 3.70 H (1.7-2.3) mg/dL AST (5-40) units/L ALT (7-56) units/L Total Protein (6.3-8.2) g/dL Albumin (3.9-5) g/dL 10/06/20 10/06/20 Range/Units 04:00 05:31 WBC (4.5-11.0) K/mm3 RBC (3.65-5.03) M/mm3 RDW (13.2-15.2) % Plt Count (140-440) K/mm3 Lymph % (Auto) (13.4-35.0) % [place] # (Auto) (0.0-0.8) K/mm3 Seg Neutrophils % (40.0-70.0) % Seg Neutrophils # (1.8-7.7) K/mm3 Potassium 3.5 L (3.6-5.0) mmol/L Carbon Dioxide (22-30) mmol/L BUN 19 H (7-17) mg/dL Creatinine 1.8 H (0.6-1.2) mg/dL Glucose 102 H (65-100) mg/dL POC Glucose 116 H (70-105) mg/dL Calcium 7.2 L (8.4-10.2) mg/dL Magnesium (1.7-2.3) mg/dL AST 307 H (5-40) units/L ALT 137 H (7-56) units/L Total Protein 4.5 L (6.3-8.2) g/dL Albumin 2.6 L (3.9-5) g/dL
[2020-10-06] MEDS: DEXTROSE 10% IN WATER 1,000 ML IV SCH ×2 (08:02→21:04)
--- NOTE | 2020-10-06 08:45 | Progress Note ---
Assessment and Plan -- Sepsis with presumed Pneumonia Teat with iv abx, follow Cx --Acute respiratory failure with hypoxia Patient intubated Vent management per CC --DIC (disseminated intravascular coagulation) vs HELLP syndrome Has anemia,thrombocytopenia and elevated liver enzymes Patient received multiple units of RBCs, FFP's, cryo Hematology/oncology recommendations appreciated Continue to trend fibrinogen and INR Critical care on board --Possible Eclampsia/HELLP Syndrome Patient presented with seizure-->hypoxia-->urgent C section-->hysterectomy for severe bleeding/DIC developed severe anemia-->received RBC, plt, FFP, cryo was on max pressors-->now off pressors still on vent, on sedation Hematology following --Cardiac arrest ACLS protocol followed by revival Echo pending --Shock Now on one pressor Likely hypovolemic. Started on empirical antibiotics for possible sepsis. Continue to monitor blood pressure closely Trend H&H and transfuse as needed --Lactic acidosis As a result of poor organ perfusion and possible sepsis Continue IV hydration. Lactic acid is trending down Nephrology on board --ADOLPH As a result of hypoperfusion and shock Continue IV hydration Cr stable at 1.7. --DVT prophylaxis Patient in DIC No anticoagulants The high probability of a clinically significant, sudden or life threatening deterioration of the [pulmonary, circulatory] system(s) required my full and direct attention, intervention and personal management. The aggregate critical care time was [32] minutes. This time is in addition to time spent performing reported procedures but includes the following: [x] Data Review and interpretation [x] Patient assessment and monitoring of vital signs [x] Documentation [x] Medication orders and management brief History 30 year old -[place] female CHE 10/25/20 at 36w5d who presents with seizures in triage on 10/02/20. Pt was not able to provide history but per pt's , she presented to the hospital to return a 24 hour urine specimen for analysis. She then suddenly reported that she did not feel good. She was taken to labor and delivery and shortly after arrival, she began seizing. During this time, a code met was called because the patient became hypoxic. She was then noted to be without a pulse. Chest compressions were started immediately, and the patient was emergently taken to the operating room for delivery of the fetus. 01This patient has had care at [facility] with comanagement by [facility] since 11 wks complicated by ADHD, morbid obesity, generalized anxiety disorder, panic attacks, chronic narcotic use, fibromyalgia, GERD, Irritable Bowel Syndrome, Migraines, h/o endometrial ablation and ovarian vein e mbolization, genital herpes, insomnia, LGA fetus, nausea and vomiting, polyhydramnios, quad screen positive for Down's Syndrome, and previous x 3. She is GBS negative. 11:30: Pt brought to L&D triage for evaluation of possible labor. Pt accompanied by her spouse. Pt spouse poor historian; unable to obtain history- allergies at this time. Pt taken from registration to triage area via WC. Pt unresponsive, actively seizing with snorous respirations. dermatologist managing partner, Kassy, called and requesting assistance. 11:35: Multiple staff at bedside. Pt 02 sat 67% on nonrebreather, unable to read BP at this time. Yifan Theodore CRNA, at bedside for intubation and assistance with IV insertion. INT attempt by multiple RNs unsuccessful at this time. 11:42: Pt being bagged by KORIN, 02% 79%. No pulse palpated, compressions started at this time; bharati young called and Dr. Newberry preparing OR for emergent c/s. 11:44: Continued compressions on stretcher while transporting pt to OR 1. Pt being bagged with jaw thrust manuever in place by KORIN Stringer student. 11:45: Arrival to OR 1. Dr. Newberry and Dr. Portillo present for emergent c/s. Code team arrived for continued care. patient revived and c/s done Patient has been bleeding from C/s site followed by supracervical hysterectomy for severe bleeding Patient transfused multiple units of PRBC, Patient in DIC. Transferred to the ICU 10/03. Patient seen and examined at bedside this morning. Patient is nonresponsive and mechanically ventilated. On pressors. Labs reviewed-has leukocytosis, anemia, thrombocytopenia, ADOLPH and lactic acidosis. Started on IV antibiotics to cover possible sepsis secondary to DIC. Hematology oncology recommendations appreciated-needs additional cryoprecipitate and FFP. Monitor D-dimer, fibrinogen and frequent labs. Nephrology consulted for lactic acidosis and ADOLPH. 10/04. Remains mechanically ventilated. [place] antibiotics. Labs shows improved acidosis - lactic acid 3.5. Hb drop noted. Getting transfused 2 units PRBCs. Platelet count is ~40k. Continue to monitor labs closely. Critical care team on board. 10/05; xray reviewed, concerning for multifocal infilrate, likely underlying Pneumonia, will add ID consult to assist with management of this critically ill patient, start tube feed, closely monitor renal system 10/06: Resumed care, remains on mechanical ventilation. No active bleeding, H&H stable. Continue to monitor CBC and BMP. Continue IV antibiotic for underlying pneumonia. Follow critical care and ID recommendation. Subjective Date of service: 10/06/20 Principal diagnosis: Eclampsia/HELLP Syndrome, ADOLPH, DIC; s/p , s/p supracervical hyst Interval history: Patient seen and examined Remains intubated No active bleeding H&H stable Discussed with RN at the bedside Objective - Exam Narrative Exam: vITAL SIGNS: Reviewed. GENERAL: Intubated HEAD: No signs of head trauma. EYES: Pupils are equal. MOUTH: OT in place NECK: No adenopathy, no JVD. CHEST: Rales posteriorly CARDIAC: normal S1 and S2, without murmurs, gallops, or rubs. ABDOMEN: Soft, non tender and non distended. surgical wound in tact, No rebound or guarding, and no masses palpated. Bowel Sounds normal. AVINASH drain intact with bloody fluid MUSCULOSKELETAL: No edema NEUROLOGIC EXAM: Intubated SKIN: No obvious lesions - Constitutional Vitals: Vital Signs - 12hr 10/05/20 10/05/20 10/05/20 20:45 21:00 21:15 Temperature Pulse Rate 95 H 95 H 94 H Pulse Rate [ From Monitor] Respiratory 18 20 20 Rate Blood Pressure 157/86 142/90 148/83 O2 Sat by Pulse 99 99 100 Oximetry 10/05/20 10/05/20 10/05/20 21:30 21:34 21:45 Temperature Pulse Rate 93 H 93 H 91 H Pulse Rate [ From Monitor] Respiratory 21 20 Rate Blood Pressure 149/84 149/84 151/86 O2 Sat by Pulse 99 100 Oximetry 10/05/20 10/05/20 10/05/20 22:00 22:15 22:30 Temperature Pulse Rate 91 H 89 91 H Pulse Rate [ From Monitor] Respiratory 20 20 20 Rate Blood Pressure 151/86 163/86 153/86 O2 Sat by Pulse 96 98 99 Oximetry 10/05/20 10/05/2020 22:45 23:00 23:15 Temperature Pulse Rate 89 88 88 Pulse Rate [ From Monitor] Respiratory 20 20 20 Rate Blood Pressure 151/82 152/73 143/77 O2 Sat by Pulse 98 99 100 Oximetry 10/05/20 10/05/20 10/05/20 23:18 23:30 23:43 Temperature Pulse Rate 88 88 88 Pulse Rate [ From Monitor] Respiratory 20 20 Rate Blood Pressure 143/77 142/74 143/77 O2 Sat by Pulse 100 100 100 Oximetry 10/05/20 10/06/20 10/06/20 23:45 00:00 00:15 Temperature 99.2 F Pulse Rate 87 87 87 Pulse Rate [ 87 From Monitor] Respiratory 20 20 20 Rate Blood Pressure 142/76 138/70 140/68 O2 Sat by Pulse 100 100 100 Oximetry 10/06/20 10/06/20 10/06/20 00:30 00:45 01:00 Temperature Pulse Rate 86 86 86 Pulse Rate [ From Monitor] Respiratory 20 20 20 Rate Blood Pressure 137/66 134/70 141/68 O2 Sat by Pulse 100 100 100 Oximetry 10/06/20 10/06/20 10/06/20 01:15 01:30 01:45 Temperature Pulse Rate 86 86 85 Pulse Rate [ From Monitor] Respiratory 20 20 20 Rate Blood Pressure 136/71 139/73 138/66 O2 Sat by Pulse 100 100 100 Oximetry 10/06/20 10/06/20 10/06/20 02:00 02:15 02:30 Temperature Pulse Rate 85 85 84 Pulse Rate [ From Monitor] Respiratory 20 19 20 Rate Blood Pressure 133/72 138/70 133/69 O2 Sat by Pulse 100 100 100 Oximetry 10/06/20 10/06/20 10/06/20 02:45 03:00 03:15 Temperature Pulse Rate 85 86 82 Pulse Rate [ From Monitor] Respiratory 20 20 20 Rate Blood Pressure 145/89 145/89 121/54 O2 Sat by Pulse 100 100 Oximetry 10/06/20 10/06/20 10/06/20 03:30 03:45 03:48 Temperature Pulse Rate 82 81 81 Pulse Rate [ From Monitor] Respiratory 20 19 Rate Blood Pressure 100/56 98/54 98/54 O2 Sat by Pulse 100 100 100 Oximetry 12/22/20 12/22/20 12/22/20 04:00 04:15 04:30 Temperature 98.2 F Pulse Rate 82 83 82 Pulse Rate [ 81 From Monitor] Respiratory 19 20 19 Rate Blood Pressure 98/54 100/62 102/63 O2 Sat by Pulse 100 100 100 Oximetry 10/06/20 10/06/20 10/06/20 04:45 05:00 05:15 Temperature Pulse Rate 84 85 84 Pulse Rate [ From Monitor] Respiratory 13 20 20 Rate Blood Pressure 105/63 115/72 105/63 O2 Sat by Pulse 100 100 100 Oximetry 10/06/20 10/06/20 10/06/20 05:30 05:45 06:00 Temperature Pulse Rate 84 85 85 Pulse Rate [ From Monitor] Respiratory 20 20 20 Rate Blood Pressure 107/63 108/67 107/63 O2 Sat by Pulse 100 100 100 Oximetry 10/06/20 10/06/20 10/06/20 06:15 06:30 07:18 Temperature Pulse Rate 85 84 83 Pulse Rate [ From Monitor] Respiratory 19 20 Rate Blood Pressure 105/61 103/60 101/58 O2 Sat by Pulse 100 100 100 Oximetry - Labs CBC & Chem 7: 10/10/20 04:00 10/10/20 04:00 Labs: Abnormal lab results 10/05/20 10/05/20 10/05/20 Range/Units 10:10 15:00 19:40 WBC (4.5-11.0) K/mm3 RBC (3.65-5.03) M/mm3 RDW (13.2-15.2) % Plt Count (140-440) K/mm3 Lymph % (Auto) (13.4-35.0) % [place] # (Auto) (0.0-0.8) K/mm3 Seg Neutrophils % (40.0-70.0) % Seg Neutrophils # (1.8-7.7) K/mm3 Potassium 3.5 L (3.6-5.0) mmol/L Carbon Dioxide 31 H 32 H (22-30) mmol/L BUN 19 H 19 H (7-17) mg/dL Creatinine 1.8 H 1.8 H (0.6-1.2) mg/dL Glucose (65-100) mg/dL POC Glucose (70-105) mg/dL Calcium 7.0 L 7.2 L (8.4-10.2) mg/dL Magnesium 2.90 H (1.7-2.3) mg/dL AST (5-40) units/L ALT (7-56) units/L Total Protein (6.3-8.2) g/dL Albumin (3.9-5) g/dL 10/06/20 10/06/20 10/06/20 Range/Units 01:05 04:00 04:00 WBC 17.1 H (4.5-11.0) K/mm3 RBC 3.47 L (3.65-5.03) M/mm3 RDW 17.4 H (13.2-15.2) % Plt Count 82 L (140-440) K/mm3 Lymph % (Auto) 8.3 L (13.4-35.0) % [place] # (Auto) 1.1 H (0.0-0.8) K/mm3 Seg Neutrophils % 83.8 H (40.0-70.0) % Seg Neutrophils # 14.3 H (1.8-7.7) K/mm3 Potassium 3.5 L (3.6-5.0) mmol/L Carbon Dioxide (22-30) mmol/L BUN 19 H (7-17) mg/dL Creatinine 1.8 H (0.6-1.2) mg/dL Glucose 102 H (65-100) mg/dL POC Glucose (70-105) mg/dL Calcium 7.2 L (8.4-10.2) mg/dL Magnesium 3.70 H (1.7-2.3) mg/dL AST 307 H (5-40) units/L ALT 137 H (7-56) units/L Total Protein 4.5 L (6.3-8.2) g/dL Albumin 2.6 L (3.9-5) g/dL 10/06/20 Range/Units 05:31 WBC (4.5-11.0) K/mm3 RBC (3.65-5.03) M/mm3 RDW (13.2-15.2) % Plt Count (140-440) K/mm3 Lymph % (Auto) (13.4-35.0) % [place] # (Auto) (0.0-0.8) K/mm3 Seg Neutrophils % (40.0-70.0) % Seg Neutrophils # (1.8-7.7) K/mm3 Potassium (3.6-5.0) mmol/L Carbon Dioxide (22-30) mmol/L BUN (7-17) mg/dL Creatinine (0.6-1.2) mg/dL Glucose (65-100) mg/dL POC Glucose 116 H (70-105) mg/dL Calcium (8.4-10.2) mg/dL Magnesium (1.7-2.3) mg/dL AST (5-40) units/L ALT (7-56) units/L Total Protein (6.3-8.2) g/dL Albumin (3.9-5) g/dL HEART Score - HEART Score Age: < 45 Risk factors: 1-2 risk factors - Critical Actions Critical Actions: >7 pts:50-65% risk of adverse cardiac event. Early invasive measures
[2020-10-06] MEDS: TOPIRAMATE TAB 25 MG TAB PO SCH ×2 (09:11→21:27)
[2020-10-06] MEDS: FAMOTIDINE 20 MG/2 ML INJ IV SCH ×2 (09:11→21:27)
[2020-10-06] MEDS: busPIRone 5 MG TAB PO SCH (09:11)
[2020-10-06] MEDS ORDERED: POTASSIUM CHLORIDE 20 MEQ PACKET FEEDTUBE ONE (11:00)
[2020-10-06] MEDS: LORazepam 2 MG/ML VIAL IV PRN (11:30)
--- NOTE | 2020-10-06 12:37 | Progress Note ---
Assessment and Plan 30 y/o female with Eclampsia, s/p emergent section with DIC, acute respiratory failure and worsening renal function. 10/06/2020: Stat Head CT today. Likely needs EEG. Will order. Continue Mag drip and follow up levels. Continue feeds. Continue to wean FiO2 as tolerated. Hold sedatives but can give PRN ativan as needed for seizure activity. Continue D10 as Tube feeds are not at goal yet. Guarded prognosis with mental state. 10/05/2020: Feed today. Stop Albumin and Abx. Will stop D10 once feeds start but will continue q2 hour FSBS until 3 consecutive >180. H/H stable. Will continue to aggressively wean FiO2. Patient has a 6.5 tube that will likely impede PSV trials given her size so will attempt to change out. Also will restart her home meds for anxiety and chronic migraine therapy. Prognosis is still guarded but promising given her hemodynamic stability. Continue chowdhury for accurate urine out put. 10/04/2020: Much improved today. Still very ill however. Down to just one pressor. Still with good urine output. Await chemistry results from this am. Likely can stop Bicarb drip given improvement in pH but would like to see bicarb on blood work. Agree with continued transfusion of blood products. Needs fibrinongen levels as well as repeat coags. I cannot see the standing orders on my screen so will call down to lab and let them know what's needed. I know she has had at leas 2 cryo's but I am not exactly sure if the count is accurate in the computer in regards to PRBC's and FFP's. Platelets lower this am but still greater than 30K. Continue chowdhury for I/O measurement. Will start to wean FiO2 on vent. CXR looks like edema but oxygenation is stable right now. Resuscitation is the most important thing right now. Will continue abx therapy at least 24 more hours. Prognosis is still very guarded but patient showing signs of improvement. 1. CV-Extremely volume deplete as well as intrasvascular depletion. Will continue to bolus with LR and saline as needed. Will add Albumin to help with intravascular volume. Spoke with OB attending over phone yesterday. No acute indication for steroids at this time. Serial H/H's given maximum pressor requirements. Will transfuse to keep up with AVINASH drain and help with weaning. Severely acidotic but improving. Likely adding to pressor requirement. GOAL is map of 65 and will wean accordingly. Will start to wean Sohail first. Ordered art line as well. 2. Heme-DIC secondary to Eclampsia, possible sepsis but white count could be stress related. Will continue to transfuse PRBC's and FFP with Cryo as needed. Follow Fibrinogen levels. Tele Heme has been consulted and note reviewed. Will give one cryo for every 6 units of PRBC's transfused. has gotten one cryo, awaiting the other to thaw out. Plts at 72K right now. Hold on further transfusion. May need to consider Factor VII if execessive bleeding continues. Will also put on broad spec abx therapy incase of possible sepsis causing DIC. Hopeful with correction of coaguloapthy she will improve. 3. Very very guarded prognosis. Will continue aggressive resuscitation. Syed ellie to come visit given exceptional case and extremely guarded prognosis. CCT 31 minutes. Subjective Date of service: 10/06/20 Principal diagnosis: Eclampsia/HELLP Syndrome, ADOLPH, DIC; s/p , s/p supracervical hyst Interval history: Had a seizure yesterday, self limited and another episode this morning aborted with ativan. Last Mag level was 5. Still on Mag Drip. Objective Vital Signs - 12hr 10/06/20 10/06/20 10/06/20 00:30 00:45 01:00 Temperature Pulse Rate 86 86 86 Pulse Rate [ From Monitor] Respiratory 20 20 20 Rate Blood Pressure 137/66 134/70 141/68 O2 Sat by Pulse 100 100 100 Oximetry 10/06/20 10/06/20 10/06/20 01:15 01:30 01:45 Temperature Pulse Rate 86 86 85 Pulse Rate [ From Monitor] Respiratory 20 20 20 Rate Blood Pressure 136/71 139/73 138/66 O2 Sat by Pulse 100 100 100 Oximetry 10/06/20 10/06/20 10/06/20 02:00 02:15 02:30 Temperature Pulse Rate 85 85 84 Pulse Rate [ From Monitor] Respiratory 20 19 20 Rate Blood Pressure 133/72 138/70 133/69 O2 Sat by Pulse 100 100 100 Oximetry 10/06/20 10/06/20 10/06/20 02:45 03:00 03:15 Temperature Pulse Rate 85 86 82 Pulse Rate [ From Monitor] Respiratory 20 20 20 Rate Blood Pressure 145/89 145/89 121/54 O2 Sat by Pulse 100 100 Oximetry 10/06/20 10/06/20 10/06/20 03:30 03:45 03:48 Temperature Pulse Rate 82 81 81 Pulse Rate [ From Monitor] Respiratory 20 19 Rate Blood Pressure 100/56 98/54 98/54 O2 Sat by Pulse 100 100 100 Oximetry 10/06/20 10/06/20 10/06/20 04:00 04:15 04:30 Temperature 98.2 F Pulse Rate 82 83 82 Pulse Rate [ 81 From Monitor] Respiratory 20 19 Rate Blood Pressure 98/54 100/62 102/63 O2 Sat by Pulse 100 100 100 Oximetry 10/06/20 10/06/20 10/06/20 04:45 05:00 05:15 Temperature Pulse Rate 84 85 84 Pulse Rate [ From Monitor] Respiratory 13 20 20 Rate Blood Pressure 105/63 115/72 105/63 O2 Sat by Pulse 100 100 100 Oximetry 10/06/20 10/06/20 10/06/20 05:30 05:45 06:00 Temperature Pulse Rate 84 85 85 Pulse Rate [ From Monitor] Respiratory 20 20 20 Rate Blood Pressure 107/63 108/67 107/63 O2 Sat by Pulse 100 100 100 Oximetry 10/06/20 10/06/20 10/06/20 06:15 06:30 06:45 Temperature Pulse Rate 85 84 83 Pulse Rate [ From Monitor] Respiratory 19 20 20 Rate Blood Pressure 105/61 103/60 101/63 O2 Sat by Pulse 100 100 100 Oximetry 10/06/20 10/06/20 10/06/20 07:00 07:15 07:18 Temperature Pulse Rate 83 83 83 Pulse Rate [ From Monitor] Respiratory 19 16 Rate Blood Pressure 103/64 101/58 101/58 O2 Sat by Pulse 100 100 100 Oximetry 10/06/20 10/06/20 10/06/20 07:30 07:45 08:00 Temperature 98.3 F Pulse Rate 82 80 81 Pulse Rate [ 84 From Monitor] Respiratory 19 18 20 Rate Blood Pressure 99/58 99/58 96/54 O2 Sat by Pulse 100 100 100 Oximetry 10/06/20 10/06/20 10/06/20 08:15 08:30 08:45 Temperature Pulse Rate 84 80 82 Pulse Rate [ From Monitor] Respiratory 20 20 20 Rate Blood Pressure 101/66 103/65 108/69 O2 Sat by Pulse 100 100 100 Oximetry 10/06/20 10/06/20 10/06/20 09:00 09:11 09:15 Temperature Pulse Rate 80 80 79 Pulse Rate [ From Monitor] Respiratory 20 20 Rate Blood Pressure 106/64 106/64 109/70 O2 Sat by Pulse 100 100 Oximetry 10/06/20 10/06/20 10/06/20 09:30 09:45 10:00 Temperature Pulse Rate 80 78 76 Pulse Rate [ From Monitor] Respiratory 21 19 17 Rate Blood Pressure 106/59 100/59 98/60 O2 Sat by Pulse 100 100 100 Oximetry 10/06/20 10/06/20 10/06/20 10:15 10:30 10:45 Temperature Pulse Rate 77 76 78 Pulse Rate [ From Monitor] Respiratory 17 20 19 Rate Blood Pressure 103/59 99/60 96/55 O2 Sat by Pulse 100 100 100 Oximetry 10/06/20 10/06/20 11:00 11:20 Temperature Pulse Rate 81 77 Pulse Rate [ From Monitor] Respiratory 20 Rate Blood Pressure 115/77 106/68 O2 Sat by Pulse 100 100 Oximetry Constitutional: asleep Eyes: non-icteric ENT: other (orally intubated and not sedated) Neck: other (large in cirumference) Ascultation: Bilateral: diminished breath sounds Percussion: Bilateral: not dull Cardiovascular: other (sinus tach) Gastrointestinal: other (post surgical changes with drain on the left side) Extremities: anasarca Neurologic: unable to assess CBC and BMP: 10/06/20 04:00 10/06/20 04:00 ABG, PT/INR, D-dimer: ABG ABG pH 7.474 (7.320-7.450) H 10/06/20 03:12 POC ABG pCO2 38.1 mmHg (32.0-48.0) 10/06/20 03:12 ABG pCO2 39.7 mm Hg 10/05/20 05:03 POC ABG pO2 129.5 mmHg (83-108) H 10/06/20 03:12 ABG pO2 74.3 mm Hg (80.0-90.0) L 10/05/20 05:03 POC ABG HCO3 27.4 10/06/20 03:12 ABG O2 Saturation 96.3 % (95.0-99.0) 10/05/20 05:03 PT/INR, D-dimer PT 13.0 Sec. (12.2-14.9) 10/05/20 05:00 INR 1.00 (0.87-1.13) 10/05/20 05:00 D-Dimer > 15475 ng/mlDDU (0-234) H 10/04/20 10:00 Abnormal lab findings: Abnormal Labs 10/02/20 10/02/20 10/02/20 12:03 12:18 12:18 WBC 14.9 H RBC Hgb 9.1 L Hct MCV MCH 22 L MCHC 28 L RDW 17.6 H Plt Count 102 L Lymph % (Auto) Lymph # (Auto) [place] # (Auto) Seg Neutrophils % Seg Neuts % (Manual) 36.0 L Lymphocytes % (Manual) 49.0 H Monocytes % (Manual) Nucleated RBC % 6.0 H Seg Neutrophils # Seg Neutrophils # Man Lymphocytes # (Manual) 7.3 H Monocytes # (Manual) PT INR APTT Fibrinogen D-Dimer ABG pH POC ABG pCO2 POC ABG pO2 ABG pO2 ABG HCO3 ABG Base Excess ABG Hemoglobin ABG Sodium ABG Chloride ABG Glucose VBG pH Oxyhemoglobin Carboxyhemoglobin Sodium 134 L Potassium Chloride Carbon Dioxide 12 L BUN 6 L Creatinine Glucose 390 H POC Glucose 451 H Lactic Acid Calcium Magnesium AST 135 H ALT 85 H Alkaline Phosphatase 172 H Lactate Dehydrogenase 641 H NT-Pro-B Natriuret Pep Total Protein 5.4 L Albumin 2.3 L Arterial Blood Glucose Arterial Blood Ionized Calcium Crossmatch 10/02/20 10/02/20 10/02/20 12:50 13:05 13:05 WBC 38.6 H RBC Hgb 8.9 L Hct 29.0 L MCV 73 L MCH 22 L MCHC RDW 17.2 H Plt Count Lymph % (Auto) Lymph # (Auto) [place] # (Auto) Seg Neutrophils % Seg Neuts % (Manual) Lymphocytes % (Manual) Monocytes % (Manual) Nucleated RBC % 2.0 H Seg Neutrophils # Seg Neutrophils # Man 20.1 H Lymphocytes # (Manual) 10.4 H Monocytes # (Manual) 2.3 H PT INR APTT Fibrinogen D-Dimer ABG pH POC ABG pCO2 POC ABG pO2 ABG pO2 ABG HCO3 ABG Base Excess ABG Hemoglobin ABG Sodium ABG Chloride ABG Glucose VBG pH Oxyhemoglobin Carboxyhemoglobin Sodium Potassium Chloride Carbon Dioxide BUN Creatinine Glucose POC Glucose Lactic Acid Calcium Magnesium AST 184 H ALT 113 H Alkaline Phosphatase Lactate Dehydrogenase 769 H NT-Pro-B Natriuret Pep Total Protein Albumin Arterial Blood Glucose Arterial Blood Ionized Calcium Crossmatch See Detail 10/02/20 10/02/20 10/02/20 16:25 16:35 16:35 WBC RBC Hgb Hct MCV MCH MCHC RDW Plt Count Lymph % (Auto) Lymph # (Auto) [place] # (Auto) Seg Neutrophils % Seg Neuts % (Manual) Lymphocytes % (Manual) Monocytes % (Manual) Nucleated RBC % Seg Neutrophils # Seg Neutrophils # Man Lymphocytes # (Manual) Monocytes # (Manual) PT INR APTT Fibrinogen D-Dimer ABG pH 7.031 L* POC ABG pCO2 POC ABG pO2 ABG pO2 116.8 H ABG HCO3 12.7 L ABG Base Excess -16.9 L ABG Hemoglobin 7.8 L ABG Sodium ABG Chloride ABG Glucose VBG pH Oxyhemoglobin 94.9 L Carboxyhemoglobin Sodium Potassium Chloride Carbon Dioxide BUN Creatinine Glucose 403 H POC Glucose Lactic Acid 11.40 H* Calcium 6.3 L D Magnesium AST 70 H ALT Alkaline Phosphatase Lactate Dehydrogenase NT-Pro-B Natriuret Pep Total Protein 1.9 L D Albumin 1.2 L Arterial Blood Glucose Arterial Blood Ionized Calcium Crossmatch 10/02/20 10/02/20 10/02/20 18:18 18:18 22:30 WBC 11.5 H RBC 2.06 L Hgb 5.5 L* D Hct 17.3 L* D MCV MCH 27 L MCHC RDW 19.5 H Plt Count 60 L Lymph % (Auto) Lymph # (Auto) [place] # (Auto) Seg Neutrophils % Seg Neuts % (Manual) Lymphocytes % (Manual) 8.0 L Monocytes % (Manual) 8.0 H Nucleated RBC % 8.0 H Seg Neutrophils # Seg Neutrophils # Man Lymphocytes # (Manual) 0.9 L Monocytes # (Manual) 0.9 H PT 37.1 H INR 3.71 H APTT 135.8 H* Fibrinogen D-Dimer ABG pH 7.067 L* POC ABG pCO2 POC ABG pO2 ABG pO2 183.0 H ABG HCO3 14.1 L ABG Base Excess -15.1 L ABG Hemoglobin 7.7 L ABG Sodium ABG Chloride ABG Glucose VBG pH Oxyhemoglobin Carboxyhemoglobin Sodium Potassium Chloride Carbon Dioxide BUN Creatinine Glucose POC Glucose Lactic Acid Calcium Magnesium AST ALT Alkaline Phosphatase Lactate Dehydrogenase NT-Pro-B Natriuret Pep Total Protein Albumin Arterial Blood Glucose Arterial Blood Ionized Calcium Crossmatch 10/02/20 10/02/20 10/03/20 Unknown Unknown 00:01 WBC RBC Hgb Hct MCV MCH MCHC RDW Plt Count Lymph % (Auto) Lymph # (Auto) [place] # (Auto) Seg Neutrophils % Seg Neuts % (Manual) Lymphocytes % (Manual) Monocytes % (Manual) Nucleated RBC % Seg Neutrophils # Seg Neutrophils # Man Lymphocytes # (Manual) Monocytes # (Manual) PT 61.1 H INR 6.92 H* APTT 158.7 H* Fibrinogen < 60 L* D-Dimer > 20735 H ABG pH POC ABG pCO2 POC ABG pO2 ABG pO2 ABG HCO3 ABG Base Excess ABG Hemoglobin ABG Sodium ABG Chloride ABG Glucose VBG pH 6.949 L* Oxyhemoglobin Carboxyhemoglobin Sodium Potassium Chloride Carbon Dioxide BUN Creatinine Glucose POC Glucose 196 H Lactic Acid Calcium Magnesium AST ALT Alkaline Phosphatase Lactate Dehydrogenase NT-Pro-B Natriuret Pep Total Protein Albumin Arterial Blood Glucose Arterial Blood Ionized Calcium Crossmatch 10/03/20 10/03/20 10/03/20 00:40 00:40 00:40 WBC RBC Hgb Hct MCV MCH MCHC RDW Plt Count Lymph % (Auto) Lymph # (Auto) [place] # (Auto) Seg Neutrophils % Seg Neuts % (Manual) Lymphocytes % (Manual) Monocytes % (Manual) Nucleated RBC % Seg Neutrophils # Seg Neutrophils # Man Lymphocytes # (Manual) Monocytes # (Manual) PT 15.1 H INR 1.21 H APTT Fibrinogen D-Dimer ABG pH POC ABG pCO2 POC ABG pO2 ABG pO2 ABG HCO3 ABG Base Excess ABG Hemoglobin ABG Sodium ABG Chloride ABG Glucose VBG pH Oxyhemoglobin Carboxyhemoglobin Sodium 136 L Potassium Chloride Carbon Dioxide BUN Creatinine 1.6 H D Glucose 106 H POC Glucose Lactic Acid 5.60 H* Calcium 6.5 L Magnesium AST 232 H ALT 104 H Alkaline Phosphatase Lactate Dehydrogenase NT-Pro-B Natriuret Pep Total Protein 3.9 L D Albumin 2.4 L Arterial Blood Glucose Arterial Blood Ionized Calcium Crossmatch 10/03/20 10/03/20 10/03/20 02:08 02:08 02:08 WBC 17.6 H RBC 3.27 L Hgb 9.9 L D Hct 29.9 L D MCV MCH MCHC RDW 16.5 H Plt Count 75 L Lymph % (Auto) Lymph # (Auto) [place] # (Auto) Seg Neutrophils % Seg Neuts % (Manual) 76.0 H Lymphocytes % (Manual) Monocytes % (Manual) Nucleated RBC % 8.0 H Seg Neutrophils # Seg Neutrophils # Man 13.4 H Lymphocytes # (Manual) Monocytes # (Manual) PT INR APTT Fibrinogen D-Dimer ABG pH POC ABG pCO2 POC ABG pO2 ABG pO2 ABG HCO3 ABG Base Excess ABG Hemoglobin ABG Sodium ABG Chloride ABG Glucose VBG pH Oxyhemoglobin Carboxyhemoglobin Sodium Potassium Chloride Carbon Dioxide 19 L BUN Creatinine 1.4 H Glucose 306 H POC Glucose Lactic Acid 10.50 H* Calcium 6.4 L Magnesium AST ALT Alkaline Phosphatase Lactate Dehydrogenase NT-Pro-B Natriuret Pep Total Protein Albumin Arterial Blood Glucose Arterial Blood Ionized Calcium Crossmatch 10/03/20 10/03/20 10/03/20 02:42 03:59 05:31 WBC RBC Hgb Hct MCV MCH MCHC RDW Plt Count Lymph % (Auto) Lymph # (Auto) [place] # (Auto) Seg Neutrophils % Seg Neuts % (Manual) Lymphocytes % (Manual) Monocytes % (Manual) Nucleated RBC % Seg Neutrophils # Seg Neutrophils # Man Lymphocytes # (Manual) Monocytes # (Manual) PT INR APTT Fibrinogen D-Dimer ABG pH 7.144 L POC ABG pCO2 54.4 H POC ABG pO2 ABG pO2 ABG HCO3 ABG Base Excess ABG Hemoglobin 10.0 L ABG Sodium ABG Chloride 108.0 H ABG Glucose 306 H VBG pH Oxyhemoglobin Carboxyhemoglobin Sodium Potassium Chloride Carbon Dioxide BUN Creatinine Glucose POC Glucose 209 H Lactic Acid 9.20 H* Calcium Magnesium AST ALT Alkaline Phosphatase Lactate Dehydrogenase NT-Pro-B Natriuret Pep Total Protein Albumin Arterial Blood Glucose 306 H Arterial Blood Ionized Calcium 3.7 L Crossmatch 10/03/20 10/03/20 10/03/20 09:00 09:00 09:00 WBC 27.4 H RBC 2.84 L Hgb 8.5 L Hct 25.1 L MCV MCH MCHC RDW 16.1 H Plt Count 72 L Lymph % (Auto) Lymph # (Auto) [place] # (Auto) Seg Neutrophils % Seg Neuts % (Manual) Lymphocytes % (Manual) 11.0 L Monocytes % (Manual) Nucleated RBC % 3.0 H Seg Neutrophils # Seg Neutrophils # Man 18.4 H Lymphocytes # (Manual) Monocytes # (Manual) 1.9 H PT INR APTT Fibrinogen D-Dimer ABG pH POC ABG pCO2 POC ABG pO2 ABG pO2 ABG HCO3 ABG Base Excess ABG Hemoglobin ABG Sodium ABG Chloride ABG Glucose VBG pH Oxyhemoglobin Carboxyhemoglobin Sodium Potassium Chloride Carbon Dioxide BUN Creatinine 1.7 H Glucose 216 H POC Glucose Lactic Acid 9.20 H* Calcium 6.3 L Magnesium AST 331 H ALT 171 H Alkaline Phosphatase Lactate Dehydrogenase NT-Pro-B Natriuret Pep Total Protein 3.7 L Albumin 1.9 L Arterial Blood Glucose Arterial Blood Ionized Calcium Crossmatch 10/03/20 10/03/20 10/03/20 11:20 11:46 11:50 WBC 28.7 H RBC 2.67 L Hgb 8.0 L Hct 23.7 L MCV MCH MCHC RDW 16.6 H Plt Count 76 L Lymph % (Auto) Lymph # (Auto) [place] # (Auto) Seg Neutrophils % Seg Neuts % (Manual) Lymphocytes % (Manual) Monocytes % (Manual) Nucleated RBC % Seg Neutrophils # Seg Neutrophils # Man Lymphocytes # (Manual) Monocytes # (Manual) PT INR APTT Fibrinogen D-Dimer ABG pH POC ABG pCO2 POC ABG pO2 ABG pO2 ABG HCO3 ABG Base Excess ABG Hemoglobin ABG Sodium ABG Chloride ABG Glucose VBG pH Oxyhemoglobin Carboxyhemoglobin Sodium Potassium Chloride Carbon Dioxide BUN Creatinine Glucose POC Glucose 125 H Lactic Acid 8.00 H* Calcium Magnesium AST ALT Alkaline Phosphatase Lactate Dehydrogenase NT-Pro-B Natriuret Pep Total Protein Albumin Arterial Blood Glucose Arterial Blood Ionized Calcium Crossmatch 10/03/20 10/04/20 10/04/20 11:50 00:40 00:40 WBC RBC Hgb 6.8 L Hct 19.4 L* MCV MCH MCHC RDW Plt Count 49 L Lymph % (Auto) Lymph # (Auto) [place] # (Auto) Seg Neutrophils % Seg Neuts % (Manual) Lymphocytes % (Manual) Monocytes % (Manual) Nucleated RBC % Seg Neutrophils # Seg Neutrophils # Man Lymphocytes # (Manual) Monocytes # (Manual) PT INR APTT Fibrinogen D-Dimer ABG pH 7.244 L POC ABG pCO2 POC ABG pO2 ABG pO2 ABG HCO3 ABG Base Excess -4.5 L ABG Hemoglobin 7.3 L ABG Sodium ABG Chloride ABG Glucose VBG pH Oxyhemoglobin Carboxyhemoglobin Sodium Potassium Chloride Carbon Dioxide BUN Creatinine Glucose POC Glucose Lactic Acid Calcium Magnesium AST ALT Alkaline Phosphatase Lactate Dehydrogenase NT-Pro-B Natriuret Pep Total Protein Albumin Arterial Blood Glucose Arterial Blood Ionized Calcium Crossmatch 10/04/20 10/04/20 10/04/20 03:53 10:00 10:00 WBC 14.6 H RBC 2.57 L Hgb 7.6 L Hct 22.5 L MCV MCH MCHC RDW 15.8 H Plt Count 38 L Lymph % (Auto) 7.7 L Lymph # (Auto) 1.1 L [place] # (Auto) 0.9 H Seg Neutrophils % 85.6 H Seg Neuts % (Manual) Lymphocytes % (Manual) Monocytes % (Manual) Nucleated RBC % Seg Neutrophils # 12.5 H Seg Neutrophils # Man Lymphocytes # (Manual) Monocytes # (Manual) PT INR APTT Fibrinogen D-Dimer ABG pH POC ABG pCO2 POC ABG pO2 110.6 H ABG pO2 ABG HCO3 ABG Base Excess ABG Hemoglobin 6.7 L ABG Sodium 132.0 L ABG Chloride ABG Glucose 111 H VBG pH Oxyhemoglobin Carboxyhemoglobin Sodium 134 L D Potassium Chloride 97.6 L Carbon Dioxide BUN Creatinine 1.7 H Glucose POC Glucose Lactic Acid Calcium 6.3 L Magnesium AST 203 H ALT 81 H Alkaline Phosphatase Lactate Dehydrogenase NT-Pro-B Natriuret Pep Total Protein 3.9 L Albumin 2.3 L Arterial Blood Glucose 111 H Arterial Blood Ionized Calcium 3.5 L Crossmatch 10/04/20 10/04/20 10/04/20 10:00 10:00 10:14 WBC RBC Hgb Hct MCV MCH MCHC RDW Plt Count Lymph % (Auto) Lymph # (Auto) [place] # (Auto) Seg Neutrophils % Seg Neuts % (Manual) Lymphocytes % (Manual) Monocytes % (Manual) Nucleated RBC % Seg Neutrophils # Seg Neutrophils # Man Lymphocytes # (Manual) Monocytes # (Manual) PT INR APTT Fibrinogen D-Dimer > 86643 H ABG pH POC ABG pCO2 POC ABG pO2 ABG pO2 ABG HCO3 ABG Base Excess ABG Hemoglobin ABG Sodium ABG Chloride ABG Glucose VBG pH Oxyhemoglobin Carboxyhemoglobin Sodium Potassium Chloride Carbon Dioxide BUN Creatinine Glucose POC Glucose Lactic Acid 3.90 H* Calcium Magnesium AST ALT Alkaline Phosphatase Lactate Dehydrogenase NT-Pro-B Natriuret Pep 2788 H Total Protein Albumin Arterial Blood Glucose Arterial Blood Ionized Calcium Crossmatch 10/04/20 10/04/20 10/04/20 14:00 14:00 18:00 WBC 15.7 H RBC 3.17 L Hgb 9.3 L 9.6 L Hct 27.2 L 28.0 L MCV MCH MCHC RDW 16.9 H Plt Count 41 L Lymph % (Auto) 8.6 L Lymph # (Auto) [place] # (Auto) 0.9 H Seg Neutrophils % 85.4 H Seg Neuts % (Manual) Lymphocytes % (Manual) Monocytes % (Manual) Nucleated RBC % Seg Neutrophils # 13.4 H Seg Neutrophils # Man Lymphocytes # (Manual) Monocytes # (Manual) PT INR APTT Fibrinogen D-Dimer ABG pH POC ABG pCO2 POC ABG pO2 ABG pO2 ABG HCO3 ABG Base Excess ABG Hemoglobin ABG Sodium ABG Chloride ABG Glucose VBG pH Oxyhemoglobin Carboxyhemoglobin Sodium 133 L Potassium Chloride 96.4 L Carbon Dioxide BUN 18 H Creatinine 1.7 H Glucose POC Glucose Lactic Acid Calcium 6.3 L Magnesium AST ALT Alkaline Phosphatase Lactate Dehydrogenase NT-Pro-B Natriuret Pep Total Protein Albumin Arterial Blood Glucose Arterial Blood Ionized Calcium Crossmatch 10/04/20 10/04/20 10/05/20 18:00 22:00 05:00 WBC 17.6 H RBC 3.34 L Hgb 9.9 L Hct 29.4 L MCV MCH MCHC RDW 17.1 H Plt Count 56 L Lymph % (Auto) 8.5 L Lymph # (Auto) [place] # (Auto) 1.0 H Seg Neutrophils % 85.1 H Seg Neuts % (Manual) Lymphocytes % (Manual) Monocytes % (Manual) Nucleated RBC % Seg Neutrophils # 15.0 H Seg Neutrophils # Man Lymphocytes # (Manual) Monocytes # (Manual) PT INR APTT Fibrinogen D-Dimer ABG pH POC ABG pCO2 POC ABG pO2 ABG pO2 ABG HCO3 ABG Base Excess ABG Hemoglobin ABG Sodium ABG Chloride ABG Glucose VBG pH Oxyhemoglobin Carboxyhemoglobin Sodium 136 L Potassium Chloride Carbon Dioxide BUN 18 H Creatinine 1.7 H Glucose POC Glucose Lactic Acid 2.30 H* Calcium 6.6 L Magnesium AST ALT Alkaline Phosphatase Lactate Dehydrogenase NT-Pro-B Natriuret Pep Total Protein Albumin Arterial Blood Glucose Arterial Blood Ionized Calcium Crossmatch 10/05/20 10/05/20 10/05/20 05:00 05:03 10:10 WBC RBC Hgb Hct MCV MCH MCHC RDW Plt Count Lymph % (Auto) Lymph # (Auto) [place] # (Auto) Seg Neutrophils % Seg Neuts % (Manual) Lymphocytes % (Manual) Monocytes % (Manual) Nucleated RBC % Seg Neutrophils # Seg Neutrophils # Man Lymphocytes # (Manual) Monocytes # (Manual) PT INR APTT Fibrinogen D-Dimer ABG pH 7.458 H POC ABG pCO2 POC ABG pO2 ABG pO2 74.3 L ABG HCO3 27.5 H ABG Base Excess 3.4 H ABG Hemoglobin 10.0 L ABG Sodium ABG Chloride ABG Glucose VBG pH Oxyhemoglobin 94.9 L Carboxyhemoglobin Sodium Potassium Chloride Carbon Dioxide 31 H BUN 19 H 19 H Creatinine 1.8 H 1.8 H Glucose POC Glucose Lactic Acid Calcium 6.8 L 7.0 L Magnesium AST 225 H ALT 85 H Alkaline Phosphatase Lactate Dehydrogenase NT-Pro-B Natriuret Pep Total Protein 4.5 L Albumin 2.7 L Arterial Blood Glucose Arterial Blood Ionized Calcium Crossmatch 10/05/20 10/05/20 10/06/20 15:00 19:40 01:05 WBC RBC Hgb Hct MCV MCH MCHC RDW Plt Count Lymph % (Auto) Lymph # (Auto) [place] # (Auto) Seg Neutrophils % Seg Neuts % (Manual) Lymphocytes % (Manual) Monocytes % (Manual) Nucleated RBC % Seg Neutrophils # Seg Neutrophils # Man Lymphocytes # (Manual) Monocytes # (Manual) PT INR APTT Fibrinogen D-Dimer ABG pH POC ABG pCO2 POC ABG pO2 ABG pO2 ABG HCO3 ABG Base Excess ABG Hemoglobin ABG Sodium ABG Chloride ABG Glucose VBG pH Oxyhemoglobin Carboxyhemoglobin Sodium Potassium 3.5 L Chloride Carbon Dioxide 32 H BUN 19 H Creatinine 1.8 H Glucose POC Glucose Lactic Acid Calcium 7.2 L Magnesium 2.90 H 3.70 H AST ALT Alkaline Phosphatase Lactate Dehydrogenase NT-Pro-B Natriuret Pep Total Protein Albumin Arterial Blood Glucose Arterial Blood Ionized Calcium Crossmatch 10/06/20 10/06/20 10/06/20 03:12 04:00 04:00 WBC 17.1 H RBC 3.47 L Hgb Hct MCV MCH MCHC RDW 17.4 H Plt Count 82 L Lymph % (Auto) 8.3 L Lymph # (Auto) [place] # (Auto) 1.1 H Seg Neutrophils % 83.8 H Seg Neuts % (Manual) Lymphocytes % (Manual) Monocytes % (Manual) Nucleated RBC % Seg Neutrophils # 14.3 H Seg Neutrophils # Man Lymphocytes # (Manual) Monocytes # (Manual) PT INR APTT Fibrinogen D-Dimer ABG pH 7.474 H POC ABG pCO2 POC ABG pO2 129.5 H ABG pO2 ABG HCO3 ABG Base Excess ABG Hemoglobin 11.4 L ABG Sodium 131.8 L ABG Chloride ABG Glucose 103 H VBG pH Oxyhemoglobin Carboxyhemoglobin 0.3 L Sodium Potassium 3.5 L Chloride Carbon Dioxide BUN 19 H Creatinine 1.8 H Glucose 102 H POC Glucose Lactic Acid Calcium 7.2 L Magnesium AST 307 H ALT 137 H Alkaline Phosphatase Lactate Dehydrogenase NT-Pro-B Natriuret Pep Total Protein 4.5 L Albumin 2.6 L Arterial Blood Glucose 103 H Arterial Blood Ionized Calcium 4.2 L Crossmatch 10/06/20 10/06/20 10/06/20 05:31 08:12 11:00 WBC RBC Hgb Hct MCV MCH MCHC RDW Plt Count Lymph % (Auto) Lymph # (Auto) [place] # (Auto) Seg Neutrophils % Seg Neuts % (Manual) Lymphocytes % (Manual) Monocytes % (Manual) Nucleated RBC % Seg Neutrophils # Seg Neutrophils # Man Lymphocytes # (Manual) Monocytes # (Manual) PT INR APTT Fibrinogen D-Dimer ABG pH POC ABG pCO2 POC ABG pO2 ABG pO2 ABG HCO3 ABG Base Excess ABG Hemoglobin ABG Sodium ABG Chloride ABG Glucose VBG pH Oxyhemoglobin Carboxyhemoglobin Sodium Potassium Chloride Carbon Dioxide BUN Creatinine Glucose POC Glucose 116 H Lactic Acid Calcium Magnesium 5.40 H 6.50 H AST ALT Alkaline Phosphatase Lactate Dehydrogenase NT-Pro-B Natriuret Pep Total Protein Albumin Arterial Blood Glucose Arterial Blood Ionized Calcium Crossmatch 10/06/20 11:50 WBC RBC Hgb Hct MCV MCH MCHC RDW Plt Count Lymph % (Auto) Lymph # (Auto) [place] # (Auto) Seg Neutrophils % Seg Neuts % (Manual) Lymphocytes % (Manual) Monocytes % (Manual) Nucleated RBC % Seg Neutrophils # Seg Neutrophils # Man Lymphocytes # (Manual) Monocytes # (Manual) PT INR APTT Fibrinogen D-Dimer ABG pH POC ABG pCO2 POC ABG pO2 ABG pO2 ABG HCO3 ABG Base Excess ABG Hemoglobin ABG Sodium ABG Chloride ABG Glucose VBG pH Oxyhemoglobin Carboxyhemoglobin Sodium Potassium Chloride Carbon Dioxide BUN Creatinine Glucose POC Glucose 106 H Lactic Acid Calcium Magnesium AST ALT Alkaline Phosphatase Lactate Dehydrogenase NT-Pro-B Natriuret Pep Total Protein Albumin Arterial Blood Glucose Arterial Blood Ionized Calcium Crossmatch
[2020-10-06] MEDS: MAGNESIUM SULFATE 40GM/1000ML 40 GM/1,000 ML BAG IV SCH ×2 (13:00→21:04)
--- NOTE | 2020-10-06 13:16 | Cat Scan Report ---
CT BRAIN: 10/06/2020 INDICATION / CLINICAL INFORMATION: Altered mental state with seizures, Eclampsia. COMPARISON: None available. FINDINGS: BRAIN/INTRACRANIAL STRUCTURES: Unenhanced CT images of the brain were obtained. There is no definite evidence of acute abnormality. Ventricles are small in size and sulci are also small. In a patient of this age, this can be consider ed within normal limits. Decreased ventricular and sulcal visibility also be associated with cerebral edema, although this would need to be correlated with additional details of clinical circumstances a nd comparison with prior studies for further evaluation. There is no evidence of hemorrhage or mass. There are no abnormal extra-axial fluid collections. There is some prominent left-sided scalp edema extending from the vertex down into the left temporal fossa region. There is also scalp edema present in the right parietal and suboccipital region. These changes can be seen as a result of prior injury or body edema. EXTRACRANIAL STRUCTURES: Incidental note is made of extensive opacification of the paranasal sinuses, with air-fluid levels present in the maxillary sinuses bilaterally and in the sphenoid sinus. IMPRESSION: No definite evidence of focal intracranial abnormality. Limited visualization of sulci is described above. All CT scans at this location are performed using dose reduction to ALARA by means of automated expos ure control. Signer Name: Wali Lima MD Signed: 10/06/2020 1:12 PM Workstation Name: [id number]
[2020-10-06] MEDS: fentaNYL 100 MCG/2 ML INJ IV PRN (13:20)
--- NOTE | 2020-10-06 14:02 | Progress Note ---
Assessment and Plan Cultures: Blood culture: in process A/P: 30-year-old female with GERD, hypertension, seizure disorder was admitted to the hospital at 36 weeks with seizures. She became hypoxic and pulseless requiring CPR. Following emergent section, patient developed hemorrhage, DIC. She has been admitted to ICU, remains on the vent: #Shock, DIC, hemorrhage: ?possible sepsis. Possible pneumonia versus fluid overload. #Acute kidney injury #Transaminitis #Preeclampsia Recs: f/u ET aspirate cultures, blood cultures Continue with IV cefepime, renally adjusted Venancio Craven MD, FACP [facility], [facility] ([facility] O: [phone] F: [phone] Subjective Date of service: 10/06/20 Principal diagnosis: Eclampsia/HELLP Syndrome, ADOLPH, DIC; s/p , s/p supracervical hyst Interval history: No fever. Remains on the vent. Off pressors. Objective - Exam Narrative Exam: Physical Exam: Constitutional: sedated, intubated, on the vent Head, Ears, Nose: Normocephalic, atraumatic. External ears, nose normal Eyes: Conjunctivae/corneas clear. No icterus. No ptosis. Neck: intubated Oral: intubated Cardiovascular: S1, S2 + Respiratory: AE fair bilaterally and equal GI: Soft, bowel sounds hypoactive, drain present, lower abdominal incision present with dressing, right subclavian central line present Musculoskeletal: No pedal edema, no cyanosis. Skin: No rash or abscess Hem/Lymphatic: No palpable cervical or supraclavicular nodes. No lymphangitis Psych: no agitation Neurological: sedated, intubated, on the vent, exam limited - Constitutional Vitals: Vital Signs Temp Pulse Resp BP Pulse Ox 98.3 F 77 21 106/68 100 10/06/20 08:00 10/06/20 11:20 10/06/20 13:20 10/06/20 11:20 10/06/20 11:20 Temperature -Last 24 Hours Temperature 98.3 F Temperature 98.2 F Temperature 99.2 F Temperature 99.3 F Temperature 101.5 F - Labs CBC & Chem 7: 10/06/20 04:00 10/06/20 04:00 Labs: Abnormal lab results 10/05/20 10/05/2010/06/20 Range/Units 15:00 19:40 01:05 WBC (4.5-11.0) K/mm3 RBC (3.65-5.03) M/mm3 RDW (13.2-15.2) % Plt Count (140-440) K/mm3 Lymph % (Auto) (13.4-35.0) % [place] # (Auto) (0.0-0.8) K/mm3 Seg Neutrophils % (40.0-70.0) % Seg Neutrophils # (1.8-7.7) K/mm3 ABG pH (7.320-7.450) POC ABG pO2 (83-108) mmHg ABG Hemoglobin (12.0-17.5) ABG Sodium (136.0-145.0) mmol/L ABG Glucose (65-95) mg/dL Carboxyhemoglobin (0.5-1.5) Potassium 3.5 L (3.6-5.0) mmol/L Carbon Dioxide 32 H (22-30) mmol/L BUN 19 H (7-17) mg/dL Creatinine 1.8 H (0.6-1.2) mg/dL Glucose (65-100) mg/dL POC Glucose (70-105) mg/dL Calcium 7.2 L (8.4-10.2) mg/dL Magnesium 2.90 H 3.70 H (1.7-2.3) mg/dL AST (5-40) units/L ALT (7-56) units/L Total Protein (6.3-8.2) g/dL Albumin (3.9-5) g/dL Arterial Blood Glucose (65-95) mg/dL Arterial Blood Ionized Calcium (4.6-5.3) mg/dL 10/06/20 10/06/20 10/06/20 Range/Units 03:12 04:00 04:00 WBC 17.1 H (4.5-11.0) K/mm3 RBC 3.47 L (3.65-5.03) M/mm3 RDW 17.4 H (13.2-15.2) % Plt Count 82 L (140-440) K/mm3 Lymph % (Auto) 8.3 L (13.4-35.0) % [place] # (Auto) 1.1 H (0.0-0.8) K/mm3 Seg Neutrophils % 83.8 H (40.0-70.0) % Seg Neutrophils # 14.3 H (1.8-7.7) K/mm3 ABG pH 7.474 H (7.320-7.450) POC ABG pO2 129.5 H (83-108) mmHg ABG Hemoglobin 11.4 L (12.0-17.5) ABG Sodium 131.8 L (136.0-145.0) mmol/L ABG Glucose 103 H (65-95) mg/dL Carboxyhemoglobin 0.3 L (0.5-1.5) Potassium 3.5 L (3.6-5.0) mmol/L Carbon Dioxide (22-30) mmol/L BUN 19 H (7-17) mg/dL Creatinine 1.8 H (0.6-1.2) mg/dL Glucose 102 H (65-100) mg/dL POC Glucose (70-105) mg/dL Calcium 7.2 L (8.4-10.2) mg/dL Magnesium (1.7-2.3) mg/dL AST 307 H (5-40) units/L ALT 137 H (7-56) units/L Total Protein 4.5 L (6.3-8.2) g/dL Albumin 2.6 L (3.9-5) g/dL Arterial Blood Glucose 103 H (65-95) mg/dL Arterial Blood Ionized Calcium 4.2 L (4.6-5.3) mg/dL 10/06/20 10/06/20 10/06/20 Range/Units 05:31 08:12 11:00 WBC (4.5-11.0) K/mm3 RBC (3.65-5.03) M/mm3 RDW (13.2-15.2) % Plt Count (140-440) K/mm3 Lymph % (Auto) (13.4-35.0) % [place] # (Auto) (0.0-0.8) K/mm3 Seg Neutrophils % (40.0-70.0) % Seg Neutrophils # (1.8-7.7) K/mm3 ABG pH (7.320-7.450) POC ABG pO2 (83-108) mmHg ABG Hemoglobin (12.0-17.5) ABG Sodium (136.0-145.0) mmol/L ABG Glucose (65-95) mg/dL Carboxyhemoglobin (0.5-1.5) Potassium (3.6-5.0) mmol/L Carbon Dioxide (22-30) mmol/L BUN (7-17) mg/dL Creatinine (0.6-1.2) mg/dL Glucose (65-100) mg/dL POC Glucose 116 H (70-105) mg/dL Calcium (8.4-10.2) mg/dL Magnesium 5.40 H 6.50 H (1.7-2.3) mg/dL AST (5-40) units/L ALT (7-56) units/L Total Protein (6.3-8.2) g/dL Albumin (3.9-5) g/dL Arterial Blood Glucose (65-95) mg/dL Arterial Blood Ionized Calcium (4.6-5.3) mg/dL 10/06/20 Range/Units 11:50 WBC (4.5-11.0) K/mm3 RBC (3.65-5.03) M/mm3 RDW (13.2-15.2) % Plt Count (140-440) K/mm3 Lymph % (Auto) (13.4-35.0) % [place] # (Auto) (0.0-0.8) K/mm3 Seg Neutrophils % (40.0-70.0) % Seg Neutrophils # (1.8-7.7) K/mm3 ABG pH (7.320-7.450) POC ABG pO2 (83-108) mmHg ABG Hemoglobin (12.0-17.5) ABG Sodium (136.0-145.0) mmol/L ABG Glucose (65-95) mg/dL Carboxyhemoglobin (0.5-1.5) Potassium (3.6-5.0) mmol/L Carbon Dioxide (22-30) mmol/L BUN (7-17) mg/dL Creatinine (0.6-1.2) mg/dL Glucose (65-100) mg/dL POC Glucose 106 H (70-105) mg/dL Calcium (8.4-10.2) mg/dL Magnesium (1.7-2.3) mg/dL AST (5-40) units/L ALT (7-56) units/L Total Protein (6.3-8.2) g/dL Albumin (3.9-5) g/dL Arterial Blood Glucose (65-95) mg/dL Arterial Blood Ionized Calcium (4.6-5.3) mg/dL
--- NOTE | 2020-10-06 15:00 | Hem/Onc Progress Note ---
Subjective Interval history: televisit via [employer] 30yo obese AA woman with 36wk gestation, presented yesterday morning with seizure-->hypoxia-->urgent C section-->hysterectomy developed severe anemia-->received RBC, plt, FFP, cryo was on max pressors-->now off pressors still on vent, on sedation still much fluid from [facility] per notes blood counts have been stable 2 days, coags normal now DATA reviewed below brain CT without contrast: neg IMPRESSION: post- with presumed ecclampsia recent severe anemia due to bleeding and "DIC" still critically ill now, now comatose,possible seizure PLAN: no transfusions planned today steroid pulse Laboratory Last Values WBC 17.1 K/mm3 (4.5-11.0) H 10/06/20 04:00 Hct 30.7 % (30.3-42.9) 10/06/20 04:00 Plt Count 82 K/mm3 (140-440) L 10/06/20 04:00 Crossmatch See Detail 10/02/20 12:50 Objective - Constitutional Vitals: Last Vital Signs Temp 98.3 F 10/06/20 08:00 Pulse 88 10/06/20 14:47 Resp 14 10/06/20 14:30 BP 148/96 10/06/20 14:47 Pulse Ox 97 10/06/20 14:47 - Labs Lab Results: Laboratory Results - last 24 hr 10/05/20 10/05/20 10/05/20 15:00 16:13 19:40 WBC RBC Hgb Hct MCV MCH MCHC RDW Plt Count Lymph % (Auto) [place] % (Auto) Eos % (Auto) Baso % (Auto) Lymph # (Auto) [place] # (Auto) Eos # (Auto) Baso # (Auto) Seg Neutrophils % Seg Neutrophils # ABG pH POC ABG pCO2 POC ABG pO2 POC ABG HCO3 POC ABG Base Excess ABG Hemoglobin ABG Oxyhemoglobin ABG Methemoglobin ABG Sodium ABG Potassium ABG Chloride ABG Glucose Carboxyhemoglobin FiO2 Sodium 138 Potassium 3.5 L Chloride 101.4 Carbon Dioxide 32 H Anion Gap 8 BUN 19 H Creatinine 1.8 H Estimated GFR 39 BUN/Creatinine Ratio 11 Glucose 91 POC Glucose 91 Calcium 7.2 L Magnesium 2.90 H Total Bilirubin AST ALT Alkaline Phosphatase Total Protein Albumin Albumin/Globulin Ratio Arterial Blood Glucose Arterial Blood Ionized Calcium 10/05/20 10/05/20 10/06/20 20:16 22:01 00:14 WBC RBC Hgb Hct MCV MCH MCHC RDW Plt Count Lymph % (Auto) [place] % (Auto) Eos % (Auto) Baso % (Auto) Lymph # (Auto) [place] # (Auto) Eos # (Auto) Baso # (Auto) Seg Neutrophils % Seg Neutrophils # ABG pH POC ABG pCO2 POC ABG pO2 POC ABG HCO3 POC ABG Base Excess ABG Hemoglobin ABG Oxyhemoglobin ABG Methemoglobin ABG Sodium ABG Potassium ABG Chloride ABG Glucose Carboxyhemoglobin FiO2 Sodium Potassium Chloride Carbon Dioxide Anion Gap BUN Creatinine Estimated GFR BUN/Creatinine Ratio Glucose POC Glucose 99 101 95 Calcium Magnesium Total Bilirubin AST ALT Alkaline Phosphatase Total Protein Albumin Albumin/Globulin Ratio Arterial Blood Glucose Arterial Blood Ionized Calcium 10/06/20 10/06/20 10/06/20 01:05 02:12 03:12 WBC RBC Hgb Hct MCV MCH MCHC RDW Plt Count Lymph % (Auto) [place] % (Auto) Eos % (Auto) Baso % (Auto) Lymph # (Auto) [place] # (Auto) Eos # (Auto) Baso # (Auto) Seg Neutrophils % Seg Neutrophils # ABG pH 7.474 H POC ABG pCO2 38.1 POC ABG pO2 129.5 H POC ABG HCO3 27.4 POC ABG Base Excess 3.6 ABG Hemoglobin 11.4 L ABG Oxyhemoglobin 97.9 ABG Methemoglobin 0.3 ABG Sodium 131.8 L ABG Potassium 3.8 ABG Chloride 105.0 ABG Glucose 103 H Carboxyhemoglobin 0.3 L FiO2 60 Sodium Potassium Chloride Carbon Dioxide Anion Gap BUN Creatinine Estimated GFR BUN/Creatinine Ratio Glucose POC Glucose 87 Calcium Magnesium 3.70 H Total Bilirubin AST ALT Alkaline Phosphatase Total Protein Albumin Albumin/Globulin Ratio Arterial Blood Glucose 103 H Arterial Blood Ionized Calcium 4.2 L 10/06/20 10/06/20 10/06/20 04:00 04:00 04:06 WBC 17.1 H RBC 3.47 L Hgb 10.4 Hct 30.7 MCV 88 MCH 30 MCHC 34 RDW 17.4 H Plt Count 82 L Lymph % (Auto) 8.3 L Daniels % (Auto) 6.5 Eos % (Auto) 1.1 Baso % (Auto) 0.3 Lymph # (Auto) 1.4 [place] # (Auto) 1.1 H Eos # (Auto) 0.2 Baso # (Auto) 0.0 Seg Neutrophils % 83.8 H Seg Neutrophils # 14.3 H ABG pH POC ABG pCO2 POC ABG pO2 POC ABG HCO3 POC ABG Base Excess ABG Hemoglobin ABG Oxyhemoglobin ABG Methemoglobin ABG Sodium ABG Potassium ABG Chloride ABG Glucose Carboxyhemoglobin FiO2 Sodium 137 Potassium 3.5 L Chloride 103.3 Carbon Dioxide 30 Anion Gap 7 BUN 19 H Creatinine 1.8 H Estimated GFR 39 BUN/Creatinine Ratio 11 Glucose 102 H POC Glucose 96 Calcium 7.2 L Magnesium Total Bilirubin 0.60 AST 307 H ALT 137 H Alkaline Phosphatase 71 Total Protein 4.5 L Albumin 2.6 L Albumin/Globulin Ratio 1.4 Arterial Blood Glucose Arterial Blood Ionized Calcium 10/06/20 10/06/20 10/06/20 05:31 07:50 08:12 WBC RBC Hgb Hct MCV MCH MCHC RDW Plt Count Lymph % (Auto) [place] % (Auto) Eos % (Auto) Baso % (Auto) Lymph # (Auto) [place] # (Auto) Eos # (Auto) Baso # (Auto) Seg Neutrophils % Seg Neutrophils # ABG pH POC ABG pCO2 POC ABG pO2 POC ABG HCO3 POC ABG Base Excess ABG Hemoglobin ABG Oxyhemoglobin ABG Methemoglobin ABG Sodium ABG Potassium ABG Chloride ABG Glucose Carboxyhemoglobin FiO2 Sodium Potassium Chloride Carbon Dioxide Anion Gap BUN Creatinine Estimated GFR BUN/Creatinine Ratio Glucose POC Glucose 116 H 97 Calcium Magnesium 5.40 H Total Bilirubin AST ALT Alkaline Phosphatase Total Protein Albumin Albumin/Globulin Ratio Arterial Blood Glucose Arterial Blood Ionized Calcium 10/06/20 10/06/20 10/06/20 09:54 11:00 11:50 WBC RBC Hgb Hct MCV MCH MCHC RDW Plt Count Lymph % (Auto) [place] % (Auto) Eos % (Auto) Baso % (Auto) Lymph # (Auto) [place] # (Auto) Eos # (Auto) Baso # (Auto) Seg Neutrophils % Seg Neutrophils # ABG pH POC ABG pCO2 POC ABG pO2 POC ABG HCO3 POC ABG Base Excess ABG Hemoglobin ABG Oxyhemoglobin ABG Methemoglobin ABG Sodium ABG Potassium ABG Chloride ABG Glucose Carboxyhemoglobin FiO2 Sodium Potassium Chloride Carbon Dioxide Anion Gap BUN Creatinine Estimated GFR BUN/Creatinine Ratio Glucose POC Glucose 96 106 H Calcium Magnesium 6.50 H Total Bilirubin AST ALT Alkaline Phosphatase Total Protein Albumin Albumin/Globulin Ratio Arterial Blood Glucose Arterial Blood Ionized Calcium Medications & Allergies - Medications Allergies/Adverse Reactions: Allergies egg Allergy (Severe, Verified 05/22/20 16:09) Anaphylaxis NSAIDS (Non-Steroidal Anti-Inflamma Allergy (Severe, Verified 05/22/20 16:09) Unknown pt c/o Palpitations, nervous, had to take benadryl Sulfa (Sulfonamide Antibiotics) Allergy (Severe, Verified 05/22/20 16:09) Anaphylaxis SWELING,NUMBNESS ibuprofen Allergy (Intermediate, Verified 05/22/20 16:09) Bleeding latex Allergy (Verified 05/22/20 16:09) Hives plecanatide [From Trulance] Allergy (Verified 05/22/20 16:09) Anaphylaxis adhesive tape Adverse Reaction (Intermediate, Verified 05/22/20 16:09) Unknown PAPER TAPE OK metoclopramide [From Reglan] Adverse Reaction (Verified 05/22/20 16:09) Unknown Home Medications: Home Medications Medication Instructions Recorded Confirmed Last Taken Type Pantoprazole [Protonix TAB] 20 mg PO DAILY 05/10/19 08/20/20 05/10/19 05:00 History busPIRone 15 mg PO DAILY 01/15/20 08/20/20 Unknown History Albuterol Sulfate [Proventil Hfa] 6.7 gm IH Q4HR PRN #1 hfa.aer.ad 04/07/20 08/20/20 Unknown Rx Topiramate (Nf) [Trokendi XR CAP] 100 mg PO DAILY 08/20/20 08/20/20 Unknown History oxyCODONE /ACETAMINOPHEN [Percocet 1 tab PO Q6HR 08/20/20 08/20/20 Unknown History 5/325 mg] Active Medications: Generic Name Dose Route Start Last Admin Trade Name Freq PRN Reason Stop Dose Admin Acetaminophen 650 mg 10/05/20 16:34 10/05/20 16:47 Acetaminophen 325 Mg/10.15 Ml Oral Liqd Unit Dose FEEDTUBE 650 mg Q6H PRN Administration Non Cardiac Pain or Temp>100.5 Lipase/Protease/Amylase 1 each 10/05/20 11:09 Lipase 10,500/Protease 25,000/Amylase 43,750 (Units) Dr Yuval FEEDTUBE PRN PRN For Clogged Feeding Tube Buspirone HCl 15 mg 10/05/20 11:00 10/06/20 09:11 Buspirone 5 Mg Tab PO 15 mg DAILY ERINN Administration Famotidine 20 mg 10/05/20 10:00 10/06/20 09:11 Famotidine 20 Mg/2 Ml Inj IV 20 mg BID ERINN Administration Fentanyl 50 mcg 10/03/20 14:57 10/06/20 13:20 Fentanyl 100 Mcg/2 Ml Inj IV 50 mcg Q2H PRN Administration agitation/sedation Hydrophilic Ointment 1 applic 10/04/20 06:55 Lip Therapy Vaseline TP Q2HR PRN Dry Lips Oxytocin/Sodium Chloride 30 units in 500 mls @ 0 mls/hr 10/02/20 17:00 Pitocin/Ns 30 Unit/500ml IV TITR ERINN Protocol As Directed Vasopressin 20 unit/ Sodium 101 mls @ 9.09 mls/hr 10/02/20 17:00 10/04/20 10:02 Chloride IV 0.03 units/min TITR ERINN 9.09 mls/hr Administration 0.03 UNITS/MIN Phenylephrine HCl 100 mg/ 100 mls @ 3 mls/hr 10/02/20 16:30 10/03/20 08:35 Sodium Chloride IV 380 mcg/min TITR ERINN 22.8 mls/hr Administration Protocol 50 MCG/MIN Epinephrine 8 mg/ Sodium 250 mls @ 3.75 mls/hr 10/02/20 18:00 10/04/20 11:06 Chloride IV 0 mcg/min TITR ERINN 0 mls/hr Titration Protocol 2 MCG/MIN Lactated Ringer's 1,000 mls @ 999 mls/hr 10/02/20 18:45 10/03/20 07:50 Lactated Ringers IV 10/07/20 19:46 Infused DIRECT ERINN Infusion Norepinephrine 8 mg/ Sodium 250 mls @ 3.75 mls/hr 10/03/20 01:00 10/04/20 02:06 Chloride IV 0 mcg/min TITR ERINN 0 mls/hr Titration Protocol 2 MCG/MIN Fentanyl Citrate 2,000 mcg in 100 mls @ 6.235 mls/hr 10/04/20 07:00 10/06/20 05:55 Fentanyl Drip Premix IV 2 mcg/kg/hr TITR ERINN 12.47 mls/hr Administration Protocol 1 MCG/KG/HR Dextrose 1,000 mls @ 75 mls/hr 10/04/20 18:50 10/06/20 08:02 D10w IV 75 mls/hr DIRECT ERINN Administration Cefepime HCl 2 gm in 100 mls @ 200 mls/hr 10/05/20 17:00 10/06/20 04:53 Cefepime/Ns 2 Gm/100 Ml IV 200 mls/hr Q12H ERINN Administration Protocol Magnesium Sulfate 40 gm in 1,000 mls @ 50 mls/hr 10/06/20 09:19 Magnesium Sulfate 40gm/1000ml IV DIRECT ERINN 2 GM/HR Labetalol HCl 100 mg 10/05/20 22:00 10/06/20 09:11 Labetalol 100 Mg Tab PO Not Given BID ERINN Lorazepam 2 mg 10/02/20 22:05 10/06/20 11:30 Lorazepam 2 Mg/Ml Vial IV 2 mg Q2H PRN Administration Seizures Multi-Ingred Cream/Lotion/Oil/Oint 1 applic 10/04/20 06:55 Mineral Oil/Petrolatum, White Ophth Oint 3.5 Gm OU Q4HR PRN Dry Eye(s) Simple Syrup 15 ml 10/05/20 11:09 Simple Syrup 15 Ml FEEDTUBE PRN PRN Hypoglycemia Simple Syrup 30 ml 10/05/20 11:09 Simple Syrup 15 Ml FEEDTUBE PRN PRN Hypoglycemia Sodium Bicarbonate 325 mg 10/05/20 11:09 Sodium Bicarbonate 325 Mg Tab FEEDTUBE PRN PRN For Clogged Feeding Tube Topiramate 50 mg 10/05/20 11:00 10/06/20 09:11 Topiramate Tab 25 Mg Tab PO 50 mg Q12HR ERINN Administration
[2020-10-06] MEDS: methylPREDNISolone Sod Succinate 125 MG/2 ML INJ IV SCH (15:28)
--- NOTE | 2020-10-06 19:58 | Progress Note ---
Assessment and Plan Impression: * Nonoliguric acute kidney injury secondary to ischemic ATN * Cardiac arrest * Shock * Acute hypoxic respiratory failure * DIC * Anemia secondary to acute blood loss * hemorrhage * Mixed respiratory/metabolic acidosis * Presumed eclampsia * Hypokalemia, mild * Hypocalcemia Plan: * Renal function is stable. There is no need for renal replacement therapy at this time * Agree with IV hydration * Transfusion of blood products per primary team and hematology * Pressors prn to maintain MAP>65 * Close monitoring of K, cautious repletion to goal 4 * replete calcium following correction of potassium levels to normal range * Strict I/O * Vent management per pulmonary/CCM * Dose medications for renal function * Avoid potential nephrotoxins Subjective Date of service: 10/06/20 Principal diagnosis: Eclampsia/HELLP Syndrome, ADOLPH, DIC; s/p , s/p supracervical hyst Interval history: Patient was seen for her renal issues Nursing, interdisciplinary and consult notes were reviewed Vitals, input and output, medications and labs were reviewed Remains intubated and on vasopressors Good urine output Objective - Exam Narrative Exam: Constitutional: Sedated. Intubated. Head: Normocephalic/atraumatic Neck: Supple Lungs: Intubated. Mechanical breath sounds. Cardiovascular: RRR, no M/R/G Abdomen: Soft, nontender, NABS Extremities: No edema, pulses within normal limits Skin: Intact, no rash Neuro: Sedated. - Vital Signs Vital signs: Vital Signs - 12hr 10/06/20 10/06/20 10/06/20 08:00 08:15 08:30 Temperature 98.3 F Pulse Rate 81 84 80 Pulse Rate [ 84 From Monitor] Respiratory 20 20 20 Rate Blood Pressure 96/54 101/66 103/65 O2 Sat by Pulse 100 100 100 Oximetry 10/06/20 10/06/20 10/06/20 08:45 09:00 09:11 Temperature Pulse Rate 82 80 80 Pulse Rate [ From Monitor] Respiratory 20 20 Rate Blood Pressure 108/69 106/64 106/64 O2 Sat by Pulse 100 100 Oximetry 10/06/20 10/06/20 10/06/20 09:15 09:30 09:45 Temperature Pulse Rate 79 80 78 Pulse Rate [ From Monitor] Respiratory 20 21 19 Rate Blood Pressure 109/70 106/59 100/59 O2 Sat by Pulse 100 100 100 Oximetry 10/06/20 10/06/20 10/06/20 10:00 10:15 10:30 Temperature Pulse Rate 76 77 76 Pulse Rate [ From Monitor] Respiratory 17 17 20 Rate Blood Pressure 98/60 103/59 99/60 O2 Sat by Pulse 100 100 100 Oximetry 10/06/20 10/06/20 10/06/20 10:45 11:00 11:15 Temperature Pulse Rate 78 81 78 Pulse Rate [ From Monitor] Respiratory 19 20 20 Rate Blood Pressure 96/55 115/77 106/68 O2 Sat by Pulse 100 100 100 Oximetry 10/06/20 10/06/20 10/06/20 11:20 11:30 11:45 Temperature Pulse Rate 77 81 83 Pulse Rate [ From Monitor] Respiratory 20 20 Rate Blood Pressure 106/68 114/72 113/73 O2 Sat by Pulse 100 100 100 Oximetry 10/06/20 10/06/20 10/06/20 12:00 12:44 12:45 Temperature 98.1 F Pulse Rate 82 93 H 93 H Pulse Rate [ 88 From Monitor] Respiratory 19 19 22 Rate Blood Pressure 111/76 111/76 145/88 O2 Sat by Pulse 100 94 95 Oximetry 10/06/20 10/06/20 10/06/20 13:00 13:15 13:20 Temperature Pulse Rate 93 H 92 H Pulse Rate [ From Monitor] Respiratory 23 21 21 Rate Blood Pressure 145/88 169/97 O2 Sat by Pulse 96 95 Oximetry 10/06/20 10/06/20 10/06/20 13:30 13:45 14:00 Temperature Pulse Rate 92 H 86 84 Pulse Rate [ From Monitor] Respiratory 18 20 20 Rate Blood Pressure 167/99 146/84 138/80 O2 Sat by Pulse 100 100 100 Oximetry 10/06/20 10/06/20 10/06/20 14:15 14:20 14:30 Temperature Pulse Rate 85 84 Pulse Rate [ From Monitor] Respiratory 20 12 14 Rate Blood Pressure 137/82 135/82 O2 Sat by Pulse 99 99 Oximetry 10/06/20 10/06/20 10/06/20 14:45 14:47 15:00 Temperature Pulse Rate 92 H 88 89 Pulse Rate [ From Monitor] Respiratory 21 17 Rate Blood Pressure 150/107 148/96 152/94 O2 Sat by Pulse 100 97 95 Oximetry 10/06/20 10/06/20 10/06/20 15:15 15:30 15:46 Temperature Pulse Rate 86 90 88 Pulse Rate [ From Monitor] Respiratory 17 21 16 Rate Blood Pressure 160/88 141/91 158/92 O2 Sat by Pulse 97 97 96 Oximetry 10/06/20 10/06/20 10/06/20 16:00 16:15 16:30 Temperature 98.7 F Pulse Rate 94 H 86 87 Pulse Rate [ 94 H From Monitor] Respiratory 19 20 19 Rate Blood Pressure 138/88 138/86 140/85 O2 Sat by Pulse 97 97 97 Oximetry 10/06/20 10/06/20 10/06/20 16:45 17:06 17:15 Temperature Pulse Rate 91 H 88 92 H Pulse Rate [ From Monitor] Respiratory 19 20 19 Rate Blood Pressure 145/89 162/93 O2 Sat by Pulse 98 97 97 Oximetry 10/06/20 10/06/20 10/06/20 17:30 17:45 17:57 Temperature Pulse Rate 90 89 89 Pulse Rate [ From Monitor] Respiratory 19 20 Rate Blood Pressure 150/93 142/85 142/85 O2 Sat by Pulse 98 98 97 Oximetry 10/06/20 10/06/20 10/06/20 18:00 18:15 18:30 Temperature Pulse Rate 96 H 92 H 93 H Pulse Rate [ From Monitor] Respiratory 22 16 19 Rate Blood Pressure 160/109 155/81 151/91 O2 Sat by Pulse 97 95 95 Oximetry 10/06/20 18:45 Temperature Pulse Rate 96 H Pulse Rate [ From Monitor] Respiratory 25 H Rate Blood Pressure 155/95 O2 Sat by Pulse 96 Oximetry - Lab 10/06/20 04:00 10/06/20 04:00 Most recent lab results ABG pH 7.474 (7.320-7.450) H 10/06/20 03:12 ABG pCO2 39.7 mm Hg 10/05/20 05:03 ABG pO2 74.3 mm Hg (80.0-90.0) L 10/05/20 05:03 ABG HCO3 27.5 mmol/L (20.0-26.0) H 10/05/20 05:03 ABG O2 Saturation 96.3 % (95.0-99.0) 10/05/20 05:03 Calcium 7.2 mg/dL (8.4-10.2) L 10/06/20 04:00 Magnesium 6.50 mg/dL (1.7-2.3) H 10/06/20 11:00 Medications & Allergies - Medications Allergies/Adverse Reactions: Allergies egg Allergy (Severe, Verified 05/22/20 16:09) Anaphylaxis NSAIDS (Non-Steroidal Anti-Inflamma Allergy (Severe, Verified 05/22/20 16:09) Unknown pt c/o Palpitations, nervous, had to take benadryl Sulfa (Sulfonamide Antibiotics) Allergy (Severe, Verified 05/22/20 16:09) Anaphylaxis SWELING,NUMBNESS ibuprofen Allergy (Intermediate, Verified 05/22/20 16:09) Bleeding latex Allergy (Verified 05/22/20 16:09) Hives plecanatide [From Trulance] Allergy (Verified 05/22/20 16:09) Anaphylaxis adhesive tape Adverse Reaction (Intermediate, Verified 05/22/20 16:09) Unknown PAPER TAPE OK metoclopramide [From Reglan] Adverse Reaction (Verified 05/22/20 16:09) Unknown Home Medications: Home Medications Medication Instructions Recorded Confirmed Last Taken Type Pantoprazole [Protonix TAB] 20 mg PO DAILY 05/10/19 08/20/20 05/10/19 05:00 History busPIRone 15 mg PO DAILY 01/15/20 08/20/20 Unknown History Albuterol Sulfate [Proventil Hfa] 6.7 gm IH Q4HR PRN #1 hfa.aer.ad 04/07/20 08/20/20 Unknown Rx Topiramate (Nf) [Trokendi XR CAP] 100 mg PO DAILY 08/20/20 08/20/20 Unknown History oxyCODONE /ACETAMINOPHEN [Percocet 1 tab PO Q6HR 08/20/20 08/20/20 Unknown History 5/325 mg] Active Medications: Generic Name Dose Route Start Last Admin Trade Name Freq PRN Reason Stop Dose Admin Acetaminophen 650 mg 10/05/20 16:34 10/05/20 16:47 Acetaminophen 325 Mg/10.15 Ml Oral Liqd Unit Dose FEEDTUBE 650 mg Q6H PRN Administration Non Cardiac Pain or Temp>100.5 Lipase/Protease/Amylase 1 each 10/05/20 11:09 Lipase 10,500/Protease 25,000/Amylase 43,750 (Units) Dr Barakat FEEDTUBE PRN PRN For Clogged Feeding Tube Buspirone HCl 15 mg 10/05/20 11:00 10/06/20 09:11 Buspirone 5 Mg Tab PO 15 mg DAILY ERINN Administration Famotidine 20 mg 10/05/20 10:00 10/06/20 09:11 Famotidine 20 Mg/2 Ml Inj IV 20 mg BID ERINN Administration Fentanyl 50 mcg 10/03/20 14:57 10/06/20 13:20 Fentanyl 100 Mcg/2 Ml Inj IV 50 mcg Q2H PRN Administration agitation/sedation Hydrophilic Ointment 1 applic 10/04/20 06:55 Lip Therapy Vaseline TP Q2HR PRN Dry Lips Oxytocin/Sodium Chloride 30 units in 500 mls @ 0 mls/hr 10/02/20 17:00 Pitocin/Ns 30 Unit/500ml IV TITR ERINN Protocol As Directed Vasopressin 20 unit/ Sodium 101 mls @ 9.09 mls/hr 10/02/20 17:00 10/04/20 10:02 Chloride IV 0.03 units/min TITR ERINN 9.09 mls/hr Administration 0.03 UNITS/MIN Phenylephrine HCl 100 mg/ 100 mls @ 3 mls/hr 10/02/20 16:30 10/03/20 08:35 Sodium Chloride IV 380 mcg/min TITR ERINN 22.8 mls/hr Administration Protocol 50 MCG/MIN Epinephrine 8 mg/ Sodium 250 mls @ 3.75 mls/hr 10/02/20 18:00 10/04/20 11:06 Chloride IV 0 mcg/min TITR ERINN 0 mls/hr Titration Protocol 2 MCG/MIN Lactated Ringer's 1,000 mls @ 999 mls/hr 10/02/20 18:45 10/03/20 07:50 Lactated Ringers IV 10/07/20 19:46 Infused DIRECT ERINN Infusion Norepinephrine 8 mg/ Sodium 250 mls @ 3.75 mls/hr 10/03/20 01:00 10/04/20 02:06 Chloride IV 0 mcg/min TITR ERINN 0 mls/hr Titration Protocol 2 MCG/MIN Fentanyl Citrate 2,000 mcg in 100 mls @ 6.235 mls/hr 10/04/20 07:00 10/06/20 19:05 Fentanyl Drip Premix IV 1 mcg/kg/hr TITR ERINN 6.235 mls/hr Administration Protocol 1 MCG/KG/HR Dextrose 1,000 mls @ 75 mls/hr 10/04/20 18:50 10/06/20 08:02 D10w IV 75 mls/hr DIRECT ERINN Administration Cefepime HCl 2 gm in 100 mls @ 200 mls/hr 10/05/20 17:00 10/06/20 19:06 Cefepime/Ns 2 Gm/100 Ml IV 200 mls/hr Q12H ERINN Administration Protocol Magnesium Sulfate 40 gm in 1,000 mls @ 50 mls/hr 10/06/20 09:19 10/06/20 13:00 Magnesium Sulfate 40gm/1000ml IV 1 gm/hr DIRECT ERINN 25 mls/hr Administration 2 GM/HR Labetalol HCl 100 mg 10/05/20 22:00 10/06/20 09:11 Labetalol 100 Mg Tab PO Not Given BID ERINN Lorazepam 2 mg 10/02/20 22:05 10/06/20 11:30 Lorazepam 2 Mg/Ml Vial IV 2 mg Q2H PRN Administration Seizures Methylprednisolone Sodium Succinate 125 mg 10/06/20 15:00 10/06/20 15:28 Methylprednisolone Sod Succinate 125 Mg/2 Ml Inj IV 10/08/20 10:01 125 mg QDAY ERINN Administration Multi-Ingred Cream/Lotion/Oil/Oint 1 applic 10/04/20 06:55 Mineral Oil/Petrolatum, White Ophth Oint 3.5 Gm OU Q4HR PRN Dry Eye(s) Simple Syrup 15 ml 10/05/20 11:09 Simple Syrup 15 Ml FEEDTUBE PRN PRN Hypoglycemia Simple Syrup 30 ml 10/05/20 11:09 Simple Syrup 15 Ml FEEDTUBE PRN PRN Hypoglycemia Sodium Bicarbonate 325 mg 10/05/20 11:09 Sodium Bicarbonate 325 Mg Tab FEEDTUBE PRN PRN For Clogged Feeding Tube Topiramate 50 mg 10/05/20 11:00 10/06/20 09:11 Topiramate Tab 25 Mg Tab PO 50 mg Q12HR ERINN Administration
--- NOTE | 2020-10-07 03:09 | XRay Report ---
CHEST - 1 VIEW INDICATION: follow up respiratory failure COMPARISON: Yesterday FINDINGS: SUPPORT DEVICES: Stable support device positioning. HEART: Stable cardiomediastinal silhouette. LUNGS/PLEURA: Improved aeration in the lungs with only mild patchy multifocal airspace disease, prev iously moderate and also previously with a left-sided pleural effusion which has essentially resolved . ADDITIONAL FINDINGS: None. IMPRESSION: Significantly improved exam. Signer Name: Chris Yoder MD Signed: 10/07/2020 3:05 AM Workstation Name: [id number]
[2020-10-07] MEDS: fentaNYL DRIP Premix 2,000 MCG/100 ML BAG IV SCH ×2 (03:24→18:48)
[2020-10-07] MEDS: CEFEPIME/NS 2 GM/100 ML 2 GM/100 ML BAG IV SCH ×2 (04:31→16:03)
[2020-10-07 07:15] LABS: Hematocrit 31.2 % (30.3-42.9); Hemoglobin 10.8 gm/dl (10.1-14.3); Mean Corpuscular HGB Conc 35 % (30-34); Mean Corpuscular Volume 87 fl (79-97); Platelet Count 129 K/mm3 (140-440); Red Blood Count 3.57 M/mm3 (3.65-5.03); Red Cell Distribution Width 17.1 % (13.2-15.2)
[2020-10-07 07:30] LABS: Albumin 2.8 g/dL (3.9-5); Calcium 7.4 mg/dL (8.4-10.2)
--- NOTE | 2020-10-07 11:25 | Progress Note ---
Assessment and Plan A: POD#5 s/p repeat section at 36 wks secondary to Eclampsia and Cardiac Arrest with Resuscitation POD#5 s/p supracervical abdominal hysterectomy secondary to Uterine [place]y, Hemorrhage and Disseminated Intravascular Coagulation (DIC) s/p multiple transfusions of blood products Acute Kidney Injury, nonoligouric Transaminitis P: Continue supportive care as recommended by Pulmonology/Critical Care, Internal Medicine, Infectious Disease, Nephrology and Hematology-Oncology Typical duration of magnesium for seizure prophylaxis after delivery would be 24 hours, but will defer duration in this critically ill patient to the critical care team Await EEG results Subjective - Subjective Date of service: 10/07/20 Principal diagnosis: Eclampsia/HELLP Syndrome, ADOLPH, DIC; s/p , s/p supracervical hyst Interval history: All guidance consultant recommendations reviewed and greatly appreciated. CT scan reviewed. Per RN, EEG taken but not yet read at this time. Pt remains intubated and sedated. Currently holding BP without pressors. Bowel movement yesterday. Art drainage appears more serosanguinous. Tube feeding continues. Pt receiving magnesium for seizure prophylaxis. Patient reports: bowel movement, no voiding normally ([place] in place ), no ambulating normally (SCDs in place ) [place]: doing well, in NICU Objective - Vital Signs Latest vital signs: Vital Signs Temp Pulse Pulse Resp BP Pulse Ox 10/07/20 11:16 84 166/101 93 10/07/20 08:30 75 18 125/69 95 10/07/20 08:15 75 20 127/70 95 10/07/20 08:00 98.2 F 75 20 132/67 95 10/07/20 07:45 77 19 125/73 100 10/07/20 07:43 78 125/73 100 10/07/20 07:30 75 20 125/73 95 10/07/20 07:15 77 20 127/77 96 10/07/20 07:00 75 20 124/71 96 10/07/20 06:45 76 19 127/71 96 10/07/20 06:30 77 20 123/71 95 10/07/20 06:15 75 20 124/72 95 10/07/20 06:00 76 20 122/70 96 10/07/20 05:45 75 20 122/75 96 10/07/20 05:30 78 19 129/77 97 10/07/20 05:15 76 20 120/68 95 10/07/20 05:00 76 19 126/75 96 10/07/20 04:45 78 20 122/67 95 10/07/20 04:30 77 20 128/72 96 10/07/20 04:15 76 15 126/71 96 10/07/20 04:11 76 123/70 96 10/07/20 04:00 97.2 F L 74 74 20 123/70 98 10/07/20 03:45 74 20 120/69 97 10/07/20 03:30 75 19 121/67 98 10/07/20 03:15 75 20 116/67 98 10/07/20 03:00 73 20 124/64 98 10/07/20 02:45 74 20 120/66 98 10/07/20 02:30 74 20 124/64 98 10/07/20 02:15 74 20 121/64 98 10/07/20 02:00 75 21 125/63 98 10/07/20 01:45 74 21 121/63 98 10/07/20 01:30 74 19 121/63 98 10/07/20 01:15 76 21 126/66 98 10/07/20 01:00 76 20 124/65 98 10/07/20 00:45 76 20 126/65 98 10/07/20 00:30 77 20 124/64 98 10/07/20 00:15 76 20 124/65 98 10/07/20 00:00 99.7 F H 79 79 20 121/66 98 10/06/20 23:45 79 21 125/65 98 10/06/20 23:30 78 15 127/67 98 10/06/20 23:15 78 20 126/68 98 10/06/20 23:00 79 20 121/69 98 10/06/20 22:45 79 15 131/65 98 20 22:31 80 21 125/66 98 10/06/20 22:30 80 21 125/66 98 20 22:15 82 14 135/70 96 10/06/20 22:00 83 15 137/73 95 10/06/20 21:45 84 15 134/72 95 10/06/20 21:30 91 H 16 156/84 94 10/06/20 21:26 90 154/77 10/06/20 21:15 92 H 18 154/77 94 10/06/20 21:00 93 H 19 148/81 93 10/06/20 20:45 97 H 19 145/88 93 10/06/20 20:31 99 H 140/84 94 10/06/20 20:30 94 H 21 140/84 94 10/06/20 20:15 97 H 22 144/74 93 10/06/20 20:00 99.5 F 98 H 99 H 20 155/87 93 10/06/20 19:45 95 H 18 142/82 93 10/06/20 19:30 94 H 22 160/84 94 10/06/20 19:15 94 H 20 151/86 92 10/06/20 19:00 93 H 21 151/91 94 10/06/20 18:45 96 H 25 H 155/95 96 10/06/20 18:30 93 H 19 151/91 95 10/06/20 18:15 92 H 16 155/81 95 10/06/20 18:00 96 H 22 160/109 97 10/06/20 17:57 89 142/85 97 10/06/20 17:45 89 20 142/85 98 10/06/20 17:30 90 19 150/93 98 10/06/20 17:15 92 H 19 162/93 97 10/06/20 17:06 88 20 97 10/06/20 16:45 91 H 19 145/89 98 10/06/20 16:30 87 19 140/85 97 10/06/20 16:15 86 20 138/86 97 10/06/20 16:00 98.7 F 94 H 94 H 19 138/88 97 10/06/20 15:46 88 16 158/92 96 10/06/20 15:30 90 21 141/91 97 10/06/20 15:15 86 17 160/88 97 10/06/20 15:00 89 17 152/94 95 10/06/20 14:47 88 148/96 97 10/06/20 14:45 92 H 21 150/107 100 10/06/20 14:30 84 14 135/82 99 10/06/20 14:20 12 10/06/20 14:15 85 20 137/82 99 10/06/20 14:00 84 20 138/80 100 10/06/20 13:45 86 20 146/84 100 10/06/20 13:30 92 H 18 167/99 100 10/06/20 13:20 21 10/06/20 13:15 92 H 21 169/97 95 10/06/20 13:00 93 H 23 145/88 96 10/06/20 12:45 93 H 22 145/88 95 10/06/20 12:44 93 H 19 111/76 94 10/06/20 12:00 98.1 F 82 88 19 111/76 100 10/06/20 11:45 83 20 113/73 100 10/06/20 11:30 81 20 114/72 100 10/06/20 11:20 77 106/68 100 Intake and Output 10/06/20 10/07/20 10/07/20 22:59 06:59 14:59 Intake Total 1831.981 728.549 Output Total 1835 1680 Balance -3.019 -951.451 Intake: IV 1321.981 83.549 CEFEPIME/NS 2 GM/100 ML 2 100 gm In 100 ml @ 200 mls/ hr IV Q12H ERINN Rx#: [id number] D10w 1,000 ml @ 75 mls/hr 977.5 IV DIRECT ERINN Rx#: [id number] MAGNESIUM SULFATE 40GM/ 201.667 1000ML 40 gm In 1,000 ml @ 2 GM/HR 50 mls/hr IV DIRECT ERINN Rx#:[id number] fentaNYL DRIP Premix 2, 42.814 83.549 000 mcg In 100 ml @ 1 MCG /KG/HR 6.235 mls/hr IV TITR ERINN Rx#:[id number] Intake, Free Water 200 200 Tube Feeding 310 445 Output: Drainage 135 130 Left 135 130 Urine 1700 1550 Indwelling Catheter 1700 1550 Other: Total, Intake Amount 45 55 Total, Output Amount 310 60 Voiding Method Indwelling Catheter Indwelling Catheter - Exam Breasts: Present: deferred Abdomen: Present: soft (obese ), other (Art drain with primarily serosanguinous output ). Absent: distention Extremities: Present: edema Incision: Present: dressed - Labs Labs: Abnormal lab results 10/06/20 10/06/20 10/06/20 Range/Units 11:00 11:50 20:13 WBC (4.5-11.0) K/mm3 RBC (3.65-5.03) M/mm3 MCHC (30-34) % RDW (13.2-15.2) % Plt Count (140-440) K/mm3 ABG Hemoglobin (12.0-17.5) ABG Glucose (65-95) mg/dL Carboxyhemoglobin (0.5-1.5) BUN (7-17) mg/dL Creatinine (0.6-1.2) mg/dL Glucose (65-100) mg/dL POC Glucose 106 H (70-105) mg/dL Calcium (8.4-10.2) mg/dL Magnesium 6.50 H 6.20 H (1.7-2.3) mg/dL AST (5-40) units/L ALT (7-56) units/L Total Protein (6.3-8.2) g/dL Albumin (3.9-5) g/dL Arterial Blood Glucose (65-95) mg/dL Arterial Blood Ionized Calcium (4.6-5.3) mg/dL 10/06/20 10/06/20 10/06/20 Range/Units 20:17 22:29 23:57 WBC (4.5-11.0) K/mm3 RBC (3.65-5.03) M/mm3 MCHC (30-34) % RDW (13.2-15.2) % Plt Count (140-440) K/mm3 ABG Hemoglobin (12.0-17.5) ABG Glucose (65-95) mg/dL Carboxyhemoglobin (0.5-1.5) BUN (7-17) mg/dL Creatinine (0.6-1.2) mg/dL Glucose (65-100) mg/dL POC Glucose 112 H 126 H 133 H (70-105) mg/dL Calcium (8.4-10.2) mg/dL Magnesium (1.7-2.3) mg/dL AST (5-40) units/L ALT (7-56) units/L Total Protein (6.3-8.2) g/dL Albumin (3.9-5) g/dL Arterial Blood Glucose (65-95) mg/dL Arterial Blood Ionized Calcium (4.6-5.3) mg/dL 10/07/20 10/07/2020 Range/Units 00:35 02:22 03:16 WBC (4.5-11.0) K/mm3 RBC (3.65-5.03) M/mm3 MCHC (30-34) % RDW (13.2-15.2) % Plt Count (140-440) K/mm3 ABG Hemoglobin 11.6 L (12.0-17.5) ABG Glucose 156 H (65-95) mg/dL Carboxyhemoglobin 0.3 L (0.5-1.5) BUN (7-17) mg/dL Creatinine (0.6-1.2) mg/dL Glucose (65-100) mg/dL POC Glucose 124 H (70-105) mg/dL Calcium (8.4-10.2) mg/dL Magnesium 5.90 H (1.7-2.3) mg/dL AST (5-40) units/L ALT (7-56) units/L Total Protein (6.3-8.2) g/dL Albumin (3.9-5) g/dL Arterial Blood Glucose 156 H (65-95) mg/dL Arterial Blood Ionized Calcium 4.2 L (4.6-5.3) mg/dL 10/07/20 10/07/20 10/07/20 Range/Units 04:06 05:45 07:05 WBC 19.2 H (4.5-11.0) K/mm3 RBC 3.57 L (3.65-5.03) M/mm3 MCHC 35 H (30-34) % RDW 17.1 H (13.2-15.2) % Plt Count 129 L (140-440) K/mm3 ABG Hemoglobin (12.0-17.5) ABG Glucose (65-95) mg/dL Carboxyhemoglobin (0.5-1.5) BUN (7-17) mg/dL Creatinine (0.6-1.2) mg/dL Glucose (65-100) mg/dL POC Glucose 135 H 149 H (70-105) mg/dL Calcium (8.4-10.2) mg/dL Magnesium (1.7-2.3) mg/dL AST (5-40) units/L ALT (7-56) units/L Total Protein (6.3-8.2) g/dL Albumin (3.9-5) g/dL Arterial Blood Glucose (65-95) mg/dL Arterial Blood Ionized Calcium (4.6-5.3) mg/dL 10/07/20 10/07/20 Range/Units 07:05 07:05 WBC (4.5-11.0) K/mm3 RBC (3.65-5.03) M/mm3 MCHC (30-34) % RDW (13.2-15.2) % Plt Count (140-440) K/mm3 ABG Hemoglobin (12.0-17.5) ABG Glucose (65-95) mg/dL Carboxyhemoglobin (0.5-1.5) BUN 21 H (7-17) mg/dL Creatinine 1.7 H (0.6-1.2) mg/dL Glucose 171 H (65-100) mg/dL POC Glucose (70-105) mg/dL Calcium 7.4 L (8.4-10.2) mg/dL Magnesium 6.10 H (1.7-2.3) mg/dL AST 245 H (5-40) units/L ALT 147 H (7-56) units/L Total Protein 5.3 L (6.3-8.2) g/dL Albumin 2.8 L (3.9-5) g/dL Arterial Blood Glucose (65-95) mg/dL Arterial Blood Ionized Calcium (4.6-5.3) mg/dL
[2020-10-07] MEDS: fentaNYL 100 MCG/2 ML INJ IV PRN (11:33)
[2020-10-07] MEDS: busPIRone 5 MG TAB PO SCH (11:34)
[2020-10-07] MEDS: methylPREDNISolone Sod Succinate 125 MG/2 ML INJ IV SCH (11:34)
[2020-10-07] MEDS: HYDROmorphone 1 MG/1 ML INJ IV PRN ×2 (11:50→14:52)
[2020-10-07] MEDS: FAMOTIDINE 20 MG TAB PO SCH ×2 (11:50→21:02)
[2020-10-07] MEDS: DEXTROSE 10% IN WATER 1,000 ML IV SCH (11:51)
--- NOTE | 2020-10-07 12:02 | Progress Note ---
Assessment and Plan 30 y/o female with Eclampsia, s/p emergent section with DIC, acute respiratory failure and worsening renal function. 10/07/2020: Head CT unremarkable. Await EEG to be read. Will stop mag Drip. If seizures occur then will load with Keppra and start BID dosing of this. Appreciate OB note. Continue D10 as sugars are still not severely elevated until feeds are at goal. PRN ativan present as well. Will add dilaudid for pain control. Increased BB to TID and added PRN hydralazine 10/06/2020: Stat Head CT today. Likely needs EEG. Will order. Continue Mag drip and follow up levels. Continue feeds. Continue to wean FiO2 as tolerated. Hold sedatives but can give PRN ativan as needed for seizure activity. Continue D10 as Tube feeds are not at goal yet. Guarded prognosis with mental state. 10/05/2020: Feed today. Stop Albumin and Abx. Will stop D10 once feeds start but will continue q2 hour FSBS until 3 consecutive >180. H/H stable. Will continue to aggressively wean FiO2. Patient has a 6.5 tube that will likely impede PSV trials given her size so will attempt to change out. Also will restart her home meds for anxiety and chronic migraine therapy. Prognosis is still guarded but promising given her hemodynamic stability. Continue chowdhury for accurate urine out put. 10/04/2020: Much improved today. Still very ill however. Down to just one pressor. Still with good urine output. Await chemistry results from this am. Likely can stop Bicarb drip given improvement in pH but would like to see bicarb on blood work. Agree with continued transfusion of blood products. Needs fibrinongen levels as well as repeat coags. I cannot see the standing orders on my screen so will call down to lab and let them know what's needed. I know she has had at leas 2 cryo's but I am not exactly sure if the count is accurate in the computer in regards to PRBC's and FFP's. Platelets lower this am but still greater than 30K. Continue chowdhury for I/O measurement. Will start to wean FiO2 on vent. CXR looks like edema but oxygenation is stable right now. Resuscitation is the most important thing right now. Will continue abx therapy at least 24 more hours. Prognosis is still very guarded but patient showing signs of improvement. 1. CV-Extremely volume deplete as well as intrasvascular depletion. Will continue to bolus with LR and saline as needed. Will add Albumin to help with intravascular volume. Spoke with OB attending over phone yesterday. No acute indication for steroids at this time. Serial H/H's given maximum pressor requirements. Will transfuse to keep up with AVINASH drain and help with weaning. Severely acidotic but improving. Likely adding to pressor requirement. GOAL is map of 65 and will wean accordingly. Will start to wean Sohail first. Ordered art line as well. 2. Heme-DIC secondary to Eclampsia, possible sepsis but white count could be stress related. Will continue to transfuse PRBC's and FFP with Cryo as needed. Follow Fibrinogen levels. Tele Heme has been consulted and note reviewed. Will give one cryo for every 6 units of PRBC's transfused. has gotten one cryo, awaiting the other to thaw out. Plts at 72K right now. Hold on further transfusion. May need to consider Factor VII if execessive bleeding continues. Will also put on broad spec abx therapy incase of possible sepsis causing DIC. Hopeful with correction of coaguloapthy she will improve. 3. Very very guarded prognosis. Will continue aggressive resuscitation. Family to come visit given exceptional case and extremely guarded prognosis. CCT 31 minutes. Subjective Date of service: 10/07/20 Principal diagnosis: Eclampsia/HELLP Syndrome, ADOLPH, DIC; s/p , s/p supracervical hyst Interval history: No acute events. Had EEG yesterday but not read yet. Off sedation does not wake up but patient has abnormal breathing pattern, gets Hypertensive and tachycardic. Objective Vital Signs - 12hr 10/07/20 10/07/20 10/07/20 00:00 00:15 00:30 Temperature 99.7 F H Pulse Rate 79 76 77 Pulse Rate [ 79 From Monitor] Respiratory 20 20 20 Rate Blood Pressure 121/66 124/65 124/64 O2 Sat by Pulse 98 98 98 Oximetry 10/07/20 10/07/20 10/07/20 00:45 01:00 01:15 Temperature Pulse Rate 76 76 76 Pulse Rate [ From Monitor] Respiratory 20 20 21 Rate Blood Pressure 126/65 124/65 126/66 O2 Sat by Pulse 98 98 98 Oximetry 10/07/20 10/07/2020 01:30 01:45 02:00 Temperature Pulse Rate 74 74 75 Pulse Rate [ From Monitor] Respiratory 19 21 21 Rate Blood Pressure 121/63 121/63 125/63 O2 Sat by Pulse 98 98 98 Oximetry 10/07/20 10/07/20 10/07/20 02:15 02:30 02:45 Temperature Pulse Rate 74 74 74 Pulse Rate [ From Monitor] Respiratory 20 20 20 Rate Blood Pressure 121/64 124/64 120/66 O2 Sat by Pulse 98 98 98 Oximetry 10/07/20 10/07/20 10/07/20 03:00 03:15 03:30 Temperature Pulse Rate 73 75 75 Pulse Rate [ From Monitor] Respiratory 20 20 19 Rate Blood Pressure 124/64 116/67 121/67 O2 Sat by Pulse 98 98 98 Oximetry 10/07/20 10/07/20 10/07/20 03:45 04:00 04:11 Temperature 97.2 F L Pulse Rate 74 74 76 Pulse Rate [ 74 From Monitor] Respiratory 20 20 Rate Blood Pressure 120/69 123/70 123/70 O2 Sat by Pulse 97 98 96 Oximetry 10/07/20 10/07/20 10/07/20 04:15 04:30 04:45 Temperature Pulse Rate 76 77 78 Pulse Rate [ From Monitor] Respiratory 15 20 20 Rate Blood Pressure 126/71 128/72 122/67 O2 Sat by Pulse 96 96 95 Oximetry 10/07/20 10/07/20 10/07/20 05:00 05:15 05:30 Temperature Pulse Rate 76 76 78 Pulse Rate [ From Monitor] Respiratory 19 20 19 Rate Blood Pressure 126/75 120/68 129/77 O2 Sat by Pulse 96 95 97 Oximetry 10/07/20 10/07/20 10/07/20 05:45 06:00 06:15 Temperature Pulse Rate 75 76 75 Pulse Rate [ From Monitor] Respiratory 20 20 20 Rate Blood Pressure 122/75 122/70 124/72 O2 Sat by Pulse 96 96 95 Oximetry 10/07/20 10/07/20 10/07/20 06:30 06:45 07:00 Temperature Pulse Rate 77 76 75 Pulse Rate [ From Monitor] Respiratory 20 19 20 Rate Blood Pressure 123/71 127/71 124/71 O2 Sat by Pulse 95 96 96 Oximetry 10/07/20 10/07/20 10/07/20 07:15 07:30 07:43 Temperature Pulse Rate 77 75 78 Pulse Rate [ From Monitor] Respiratory 20 20 Rate Blood Pressure 127/77 125/73 125/73 O2 Sat by Pulse 96 95 100 Oximetry 10/07/20 10/07/20 10/07/20 07:45 08:00 08:15 Temperature 98.2 F Pulse Rate 77 75 75 Pulse Rate [ From Monitor] Respiratory 19 20 20 Rate Blood Pressure 125/73 132/67 127/70 O2 Sat by Pulse 100 95 95 Oximetry 10/07/20 10/07/20 10/07/20 08:30 08:45 09:00 Temperature Pulse Rate 75 76 75 Pulse Rate [ From Monitor] Respiratory 18 17 18 Rate Blood Pressure 125/69 122/71 124/76 O2 Sat by Pulse 95 95 95 Oximetry 10/07/20 10/07/20 10/07/20 09:15 09:30 09:45 Temperature Pulse Rate 76 74 78 Pulse Rate [ From Monitor] Respiratory 17 19 17 Rate Blood Pressure 127/73 125/72 129/79 O2 Sat by Pulse 95 95 94 Oximetry 10/07/20 10/07/20 10/07/20 10:00 10:15 10:30 Temperature Pulse Rate 75 76 79 Pulse Rate [ From Monitor] Respiratory 19 17 12 Rate Blood Pressure 128/73 129/78 135/84 O2 Sat by Pulse 96 95 96 Oximetry 10/07/20 10/07/20 10/07/20 10:45 11:00 11:15 Temperature Pulse Rate 84 88 85 Pulse Rate [ From Monitor] Respiratory 14 14 14 Rate Blood Pressure 153/97 171/102 165/96 O2 Sat by Pulse 94 93 93 Oximetry 10/07/20 10/07/20 10/07/20 11:16 11:30 11:33 Temperature Pulse Rate 84 89 Pulse Rate [ From Monitor] Respiratory 13 14 Rate Blood Pressure 166/101 185/101 O2 Sat by Pulse 93 93 Oximetry 10/07/20 10/07/20 11:34 11:38 Temperature 99.1 F Pulse Rate 85 Pulse Rate [ From Monitor] Respiratory Rate Blood Pressure 185/101 O2 Sat by Pulse Oximetry Constitutional: comatose Eyes: non-icteric ENT: other (orally intubated and not sedated) Neck: other (large in cirumference) Ascultation: Bilateral: diminished breath sounds Percussion: Bilateral: not dull Cardiovascular: other (sinus tach) Gastrointestinal: other (post surgical changes with drain on the left side) Extremities: anasarca Neurologic: unable to assess CBC and BMP: 10/07/20 07:05 10/07/20 07:05 ABG, PT/INR, D-dimer: ABG ABG pH 7.433 (7.320-7.450) 10/07/20 03:16 POC ABG pCO2 40.7 mmHg (32.0-48.0) 10/07/20 03:16 ABG pCO2 39.7 mm Hg 10/05/20 05:03 POC ABG pO2 104.3 mmHg (83-108) 10/07/20 03:16 ABG pO2 74.3 mm Hg (80.0-90.0) L 10/05/20 05:03 POC ABG HCO3 26.6 10/07/20 03:16 ABG O2 Saturation 96.3 % (95.0-99.0) 10/05/20 05:03 PT/INR, D-dimer PT 13.0 Sec. (12.2-14.9) 10/05/20 05:00 INR 1.00 (0.87-1.13) 10/05/20 05:00 D-Dimer > 58321 ng/mlDDU (0-234) H 10/04/20 10:00 Abnormal lab findings: Abnormal Labs 10/02/20 10/02/20 10/02/20 12:03 12:18 12:18 WBC 14.9 H RBC Hgb 9.1 L Hct MCV MCH 22 L MCHC 28 L RDW 17.6 H Plt Count 102 L Lymph % (Auto) Lymph # (Auto) [place] # (Auto) Seg Neutrophils % Seg Neuts % (Manual) 36.0 L Lymphocytes % (Manual) 49.0 H Monocytes % (Manual) Nucleated RBC % 6.0 H Seg Neutrophils # Seg Neutrophils # Man Lymphocytes # (Manual) 7.3 H Monocytes # (Manual) PT INR APTT Fibrinogen D-Dimer ABG pH POC ABG pCO2 POC ABG pO2 ABG pO2 ABG HCO3 ABG Base Excess ABG Hemoglobin ABG Sodium ABG Chloride ABG Glucose VBG pH Oxyhemoglobin Carboxyhemoglobin Sodium 134 L Potassium Chloride Carbon Dioxide 12 L BUN 6 L Creatinine Glucose 390 H POC Glucose 451 H Lactic Acid Calcium Magnesium AST 135 H ALT 85 H Alkaline Phosphatase 172 H Lactate Dehydrogenase 641 H NT-Pro-B Natriuret Pep Total Protein 5.4 L Albumin 2.3 L Arterial Blood Glucose Arterial Blood Ionized Calcium Crossmatch 10/02/20 10/02/20 10/02/20 12:50 13:05 13:05 WBC 38.6 H RBC Hgb 8.9 L Hct 29.0 L MCV 73 L MCH 22 L MCHC RDW 17.2 H Plt Count Lymph % (Auto) Lymph # (Auto) [place] # (Auto) Seg Neutrophils % Seg Neuts % (Manual) Lymphocytes % (Manual) Monocytes % (Manual) Nucleated RBC % 2.0 H Seg Neutrophils # Seg Neutrophils # Man 20.1 H Lymphocytes # (Manual) 10.4 H Monocytes # (Manual) 2.3 H PT INR APTT Fibrinogen D-Dimer ABG pH POC ABG pCO2 POC ABG pO2 ABG pO2 ABG HCO3 ABG Base Excess ABG Hemoglobin ABG Sodium ABG Chloride ABG Glucose VBG pH Oxyhemoglobin Carboxyhemoglobin Sodium Potassium Chloride Carbon Dioxide BUN Creatinine Glucose POC Glucose Lactic Acid Calcium Magnesium AST 184 H ALT 113 H Alkaline Phosphatase Lactate Dehydrogenase 769 H NT-Pro-B Natriuret Pep Total Protein Albumin Arterial Blood Glucose Arterial Blood Ionized Calcium Crossmatch See Detail 10/02/20 10/02/20 10/02/20 16:25 16:35 16:35 WBC RBC Hgb Hct MCV MCH MCHC RDW Plt Count Lymph % (Auto) Lymph # (Auto) [place] # (Auto) Seg Neutrophils % Seg Neuts % (Manual) Lymphocytes % (Manual) Monocytes % (Manual) Nucleated RBC % Seg Neutrophils # Seg Neutrophils # Man Lymphocytes # (Manual) Monocytes # (Manual) PT INR APTT Fibrinogen D-Dimer ABG pH 7.031 L* POC ABG pCO2 POC ABG pO2 ABG pO2 116.8 H ABG HCO3 12.7 L ABG Base Excess -16.9 L ABG Hemoglobin 7.8 L ABG Sodium ABG Chloride ABG Glucose VBG pH Oxyhemoglobin 94.9 L Carboxyhemoglobin Sodium Potassium Chloride Carbon Dioxide BUN Creatinine Glucose 403 H POC Glucose Lactic Acid 11.40 H* Calcium 6.3 L D Magnesium AST 70 H ALT Alkaline Phosphatase Lactate Dehydrogenase NT-Pro-B Natriuret Pep Total Protein 1.9 L D Albumin 1.2 L Arterial Blood Glucose Arterial Blood Ionized Calcium Crossmatch 10/02/20 10/02/20 10/02/20 18:18 18:18 22:30 WBC 11.5 H RBC 2.06 L Hgb 5.5 L* D Hct 17.3 L* D MCV MCH 27 L MCHC RDW 19.5 H Plt Count 60 L Lymph % (Auto) Lymph # (Auto) [place] # (Auto) Seg Neutrophils % Seg Neuts % (Manual) Lymphocytes % (Manual) 8.0 L Monocytes % (Manual) 8.0 H Nucleated RBC % 8.0 H Seg Neutrophils # Seg Neutrophils # Man Lymphocytes # (Manual) 0.9 L Monocytes # (Manual) 0.9 H PT 37.1 H INR 3.71 H APTT 135.8 H* Fibrinogen D-Dimer ABG pH 7.067 L* POC ABG pCO2 POC ABG pO2 ABG pO2 183.0 H ABG HCO3 14.1 L ABG Base Excess -15.1 L ABG Hemoglobin 7.7 L ABG Sodium ABG Chloride ABG Glucose VBG pH Oxyhemoglobin Carboxyhemoglobin Sodium Potassium Chloride Carbon Dioxide BUN Creatinine Glucose POC Glucose Lactic Acid Calcium Magnesium AST ALT Alkaline Phosphatase Lactate Dehydrogenase NT-Pro-B Natriuret Pep Total Protein Albumin Arterial Blood Glucose Arterial Blood Ionized Calcium Crossmatch 10/02/20 10/02/20 10/03/20 Unknown Unknown 00:01 WBC RBC Hgb Hct MCV MCH MCHC RDW Plt Count Lymph % (Auto) Lymph # (Auto) [place] # (Auto) Seg Neutrophils % Seg Neuts % (Manual) Lymphocytes % (Manual) Monocytes % (Manual) Nucleated RBC % Seg Neutrophils # Seg Neutrophils # Man Lymphocytes # (Manual) Monocytes # (Manual) PT 61.1 H INR 6.92 H* APTT 158.7 H* Fibrinogen < 60 L* D-Dimer > 24930 H ABG pH POC ABG pCO2 POC ABG pO2 ABG pO2 ABG HCO3 ABG Base Excess ABG Hemoglobin ABG Sodium ABG Chloride ABG Glucose VBG pH 6.949 L* Oxyhemoglobin Carboxyhemoglobin Sodium Potassium Chloride Carbon Dioxide BUN Creatinine Glucose POC Glucose 196 H Lactic Acid Calcium Magnesium AST ALT Alkaline Phosphatase Lactate Dehydrogenase NT-Pro-B Natriuret Pep Total Protein Albumin Arterial Blood Glucose Arterial Blood Ionized Calcium Crossmatch 10/03/20 10/03/20 10/03/20 00:40 00:40 00:40 WBC RBC Hgb Hct MCV MCH MCHC RDW Plt Count Lymph % (Auto) Lymph # (Auto) [place] # (Auto) Seg Neutrophils % Seg Neuts % (Manual) Lymphocytes % (Manual) Monocytes % (Manual) Nucleated RBC % Seg Neutrophils # Seg Neutrophils # Man Lymphocytes # (Manual) Monocytes # (Manual) PT 15.1 H INR 1.21 H APTT Fibrinogen D-Dimer ABG pH POC ABG pCO2 POC ABG pO2 ABG pO2 ABG HCO3 ABG Base Excess ABG Hemoglobin ABG Sodium ABG Chloride ABG Glucose VBG pH Oxyhemoglobin Carboxyhemoglobin Sodium 136 L Potassium Chloride Carbon Dioxide BUN Creatinine 1.6 H D Glucose 106 H POC Glucose Lactic Acid 5.60 H* Calcium 6.5 L Magnesium AST 232 H ALT 104 H Alkaline Phosphatase Lactate Dehydrogenase NT-Pro-B Natriuret Pep Total Protein 3.9 L D Albumin 2.4 L Arterial Blood Glucose Arterial Blood Ionized Calcium Crossmatch 10/03/20 10/03/20 10/03/20 02:08 02:08 02:08 WBC 17.6 H RBC 3.27 L Hgb 9.9 L D Hct 29.9 L D MCV MCH MCHC RDW 16.5 H Plt Count 75 L Lymph % (Auto) Lymph # (Auto) [place] # (Auto) Seg Neutrophils % Seg Neuts % (Manual) 76.0 H Lymphocytes % (Manual) Monocytes % (Manual) Nucleated RBC % 8.0 H Seg Neutrophils # Seg Neutrophils # Man 13.4 H Lymphocytes # (Manual) Monocytes # (Manual) PT INR APTT Fibrinogen D-Dimer ABG pH POC ABG pCO2 POC ABG pO2 ABG pO2 ABG HCO3 ABG Base Excess ABG Hemoglobin ABG Sodium ABG Chloride ABG Glucose VBG pH Oxyhemoglobin Carboxyhemoglobin Sodium Potassium Chloride Carbon Dioxide 19 L BUN Creatinine 1.4 H Glucose 306 H POC Glucose Lactic Acid 10.50 H* Calcium 6.4 L Magnesium AST ALT Alkaline Phosphatase Lactate Dehydrogenase NT-Pro-B Natriuret Pep Total Protein Albumin Arterial Blood Glucose Arterial Blood Ionized Calcium Crossmatch 10/03/20 10/03/20 10/03/20 02:42 03:59 05:31 WBC RBC Hgb Hct MCV MCH MCHC RDW Plt Count Lymph % (Auto) Lymph # (Auto) [place] # (Auto) Seg Neutrophils % Seg Neuts % (Manual) Lymphocytes % (Manual) Monocytes % (Manual) Nucleated RBC % Seg Neutrophils # Seg Neutrophils # Man Lymphocytes # (Manual) Monocytes # (Manual) PT INR APTT Fibrinogen D-Dimer ABG pH 7.144 L POC ABG pCO2 54.4 H POC ABG pO2 ABG pO2 ABG HCO3 ABG Base Excess ABG Hemoglobin 10.0 L ABG Sodium ABG Chloride 108.0 H ABG Glucose 306 H VBG pH Oxyhemoglobin Carboxyhemoglobin Sodium Potassium Chloride Carbon Dioxide BUN Creatinine Glucose POC Glucose 209 H Lactic Acid 9.20 H* Calcium Magnesium AST ALT Alkaline Phosphatase Lactate Dehydrogenase NT-Pro-B Natriuret Pep Total Protein Albumin Arterial Blood Glucose 306 H Arterial Blood Ionized Calcium 3.7 L Crossmatch 10/03/20 10/03/20 10/03/20 09:00 09:00 09:00 WBC 27.4 H RBC 2.84 L Hgb 8.5 L Hct 25.1 L MCV MCH MCHC RDW 16.1 H Plt Count 72 L Lymph % (Auto) Lymph # (Auto) [place] # (Auto) Seg Neutrophils % Seg Neuts % (Manual) Lymphocytes % (Manual) 11.0 L Monocytes % (Manual) Nucleated RBC % 3.0 H Seg Neutrophils # Seg Neutrophils # Man 18.4 H Lymphocytes # (Manual) Monocytes # (Manual) 1.9 H PT INR APTT Fibrinogen D-Dimer ABG pH POC ABG pCO2 POC ABG pO2 ABG pO2 ABG HCO3 ABG Base Excess ABG Hemoglobin ABG Sodium ABG Chloride ABG Glucose VBG pH Oxyhemoglobin Carboxyhemoglobin Sodium Potassium Chloride Carbon Dioxide BUN Creatinine 1.7 H Glucose 216 H POC Glucose Lactic Acid 9.20 H* Calcium 6.3 L Magnesium AST 331 H ALT 171 H Alkaline Phosphatase Lactate Dehydrogenase NT-Pro-B Natriuret Pep Total Protein 3.7 L Albumin 1.9 L Arterial Blood Glucose Arterial Blood Ionized Calcium Crossmatch 10/03/20 10/03/20 10/03/20 11:20 11:46 11:50 WBC 28.7 H RBC 2.67 L Hgb 8.0 L Hct 23.7 L MCV MCH MCHC RDW 16.6 H Plt Count 76 L Lymph % (Auto) Lymph # (Auto) [place] # (Auto) Seg Neutrophils % Seg Neuts % (Manual) Lymphocytes % (Manual) Monocytes % (Manual) Nucleated RBC % Seg Neutrophils # Seg Neutrophils # Man Lymphocytes # (Manual) Monocytes # (Manual) PT INR APTT Fibrinogen D-Dimer ABG pH POC ABG pCO2 POC ABG pO2 ABG pO2 ABG HCO3 ABG Base Excess ABG Hemoglobin ABG Sodium ABG Chloride ABG Glucose VBG pH Oxyhemoglobin Carboxyhemoglobin Sodium Potassium Chloride Carbon Dioxide BUN Creatinine Glucose POC Glucose 125 H Lactic Acid 8.00 H* Calcium Magnesium AST ALT Alkaline Phosphatase Lactate Dehydrogenase NT-Pro-B Natriuret Pep Total Protein Albumin Arterial Blood Glucose Arterial Blood Ionized Calcium Crossmatch 10/03/20 10/04/20 10/04/20 11:50 00:40 00:40 WBC RBC Hgb 6.8 L Hct 19.4 L* MCV MCH MCHC RDW Plt Count 49 L Lymph % (Auto) Lymph # (Auto) [place] # (Auto) Seg Neutrophils % Seg Neuts % (Manual) Lymphocytes % (Manual) Monocytes % (Manual) Nucleated RBC % Seg Neutrophils # Seg Neutrophils # Man Lymphocytes # (Manual) Monocytes # (Manual) PT INR APTT Fibrinogen D-Dimer ABG pH 7.244 L POC ABG pCO2 POC ABG pO2 ABG pO2 ABG HCO3 ABG Base Excess -4.5 L ABG Hemoglobin 7.3 L ABG Sodium ABG Chloride ABG Glucose VBG pH Oxyhemoglobin Carboxyhemoglobin Sodium Potassium Chloride Carbon Dioxide BUN Creatinine Glucose POC Glucose Lactic Acid Calcium Magnesium AST ALT Alkaline Phosphatase Lactate Dehydrogenase NT-Pro-B Natriuret Pep Total Protein Albumin Arterial Blood Glucose Arterial Blood Ionized Calcium Crossmatch 10/04/20 10/04/20 10/04/20 03:53 10:00 10:00 WBC 14.6 H RBC 2.57 L Hgb 7.6 L Hct 22.5 L MCV MCH MCHC RDW 15.8 H Plt Count 38 L Lymph % (Auto) 7.7 L Lymph # (Auto) 1.1 L [place] # (Auto) 0.9 H Seg Neutrophils % 85.6 H Seg Neuts % (Manual) Lymphocytes % (Manual) Monocytes % (Manual) Nucleated RBC % Seg Neutrophils # 12.5 H Seg Neutrophils # Man Lymphocytes # (Manual) Monocytes # (Manual) PT INR APTT Fibrinogen D-Dimer ABG pH POC ABG pCO2 POC ABG pO2 110.6 H ABG pO2 ABG HCO3 ABG Base Excess ABG Hemoglobin 6.7 L ABG Sodium 132.0 L ABG Chloride ABG Glucose 111 H VBG pH Oxyhemoglobin Carboxyhemoglobin Sodium 134 L D Potassium Chloride 97.6 L Carbon Dioxide BUN Creatinine 1.7 H Glucose POC Glucose Lactic Acid Calcium 6.3 L Magnesium AST 203 H ALT 81 H Alkaline Phosphatase Lactate Dehydrogenase NT-Pro-B Natriuret Pep Total Protein 3.9 L Albumin 2.3 L Arterial Blood Glucose 111 H Arterial Blood Ionized Calcium 3.5 L Crossmatch 10/04/20 10/04/20 10/04/20 10:00 10:00 10:14 WBC RBC Hgb Hct MCV MCH MCHC RDW Plt Count Lymph % (Auto) Lymph # (Auto) [place] # (Auto) Seg Neutrophils % Seg Neuts % (Manual) Lymphocytes % (Manual) Monocytes % (Manual) Nucleated RBC % Seg Neutrophils # Seg Neutrophils # Man Lymphocytes # (Manual) Monocytes # (Manual) PT INR APTT Fibrinogen D-Dimer > 87333 H ABG pH POC ABG pCO2 POC ABG pO2 ABG pO2 ABG HCO3 ABG Base Excess ABG Hemoglobin ABG Sodium ABG Chloride ABG Glucose VBG pH Oxyhemoglobin Carboxyhemoglobin Sodium Potassium Chloride Carbon Dioxide BUN Creatinine Glucose POC Glucose Lactic Acid 3.90 H* Calcium Magnesium AST ALT Alkaline Phosphatase Lactate Dehydrogenase NT-Pro-B Natriuret Pep 2788 H Total Protein Albumin Arterial Blood Glucose Arterial Blood Ionized Calcium Crossmatch 10/04/20 10/04/20 10/04/20 14:00 14:00 18:00 WBC 15.7 H RBC 3.17 L Hgb 9.3 L 9.6 L Hct 27.2 L 28.0 L MCV MCH MCHC RDW 16.9 H Plt Count 41 L Lymph % (Auto) 8.6 L Lymph # (Auto) [place] # (Auto) 0.9 H Seg Neutrophils % 85.4 H Seg Neuts % (Manual) Lymphocytes % (Manual) Monocytes % (Manual) Nucleated RBC % Seg Neutrophils # 13.4 H Seg Neutrophils # Man Lymphocytes # (Manual) Monocytes # (Manual) PT INR APTT Fibrinogen D-Dimer ABG pH POC ABG pCO2 POC ABG pO2 ABG pO2 ABG HCO3 ABG Base Excess ABG Hemoglobin ABG Sodium ABG Chloride ABG Glucose VBG pH Oxyhemoglobin Carboxyhemoglobin Sodium 133 L Potassium Chloride 96.4 L Carbon Dioxide BUN 18 H Creatinine 1.7 H Glucose POC Glucose Lactic Acid Calcium 6.3 L Magnesium AST ALT Alkaline Phosphatase Lactate Dehydrogenase NT-Pro-B Natriuret Pep Total Protein Albumin Arterial Blood Glucose Arterial Blood Ionized Calcium Crossmatch 10/04/20 10/04/20 10/05/20 18:00 22:00 05:00 WBC 17.6 H RBC 3.34 L Hgb 9.9 L Hct 29.4 L MCV MCH MCHC RDW 17.1 H Plt Count 56 L Lymph % (Auto) 8.5 L Lymph # (Auto) [place] # (Auto) 1.0 H Seg Neutrophils % 85.1 H Seg Neuts % (Manual) Lymphocytes % (Manual) Monocytes % (Manual) Nucleated RBC % Seg Neutrophils # 15.0 H Seg Neutrophils # Man Lymphocytes # (Manual) Monocytes # (Manual) PT INR APTT Fibrinogen D-Dimer ABG pH POC ABG pCO2 POC ABG pO2 ABG pO2 ABG HCO3 ABG Base Excess ABG Hemoglobin ABG Sodium ABG Chloride ABG Glucose VBG pH Oxyhemoglobin Carboxyhemoglobin Sodium 136 L Potassium Chloride Carbon Dioxide BUN 18 H Creatinine 1.7 H Glucose POC Glucose Lactic Acid 2.30 H* Calcium 6.6 L Magnesium AST ALT Alkaline Phosphatase Lactate Dehydrogenase NT-Pro-B Natriuret Pep Total Protein Albumin Arterial Blood Glucose Arterial Blood Ionized Calcium Crossmatch 10/05/20 10/05/20 10/05/20 05:00 05:03 10:10 WBC RBC Hgb Hct MCV MCH MCHC RDW Plt Count Lymph % (Auto) Lymph # (Auto) [place] # (Auto) Seg Neutrophils % Seg Neuts % (Manual) Lymphocytes % (Manual) Monocytes % (Manual) Nucleated RBC % Seg Neutrophils # Seg Neutrophils # Man Lymphocytes # (Manual) Monocytes # (Manual) PT INR APTT Fibrinogen D-Dimer ABG pH 7.458 H POC ABG pCO2 POC ABG pO2 ABG pO2 74.3 L ABG HCO3 27.5 H ABG Base Excess 3.4 H ABG Hemoglobin 10.0 L ABG Sodium ABG Chloride ABG Glucose VBG pH Oxyhemoglobin 94.9 L Carboxyhemoglobin Sodium Potassium Chloride Carbon Dioxide 31 H BUN 19 H 19 H Creatinine 1.8 H 1.8 H Glucose POC Glucose Lactic Acid Calcium 6.8 L 7.0 L Magnesium AST 225 H ALT 85 H Alkaline Phosphatase Lactate Dehydrogenase NT-Pro-B Natriuret Pep Total Protein 4.5 L Albumin 2.7 L Arterial Blood Glucose Arterial Blood Ionized Calcium Crossmatch 10/05/20 10/05/20 10/06/20 15:00 19:40 01:05 WBC RBC Hgb Hct MCV MCH MCHC RDW Plt Count Lymph % (Auto) Lymph # (Auto) [place] # (Auto) Seg Neutrophils % Seg Neuts % (Manual) Lymphocytes % (Manual) Monocytes % (Manual) Nucleated RBC % Seg Neutrophils # Seg Neutrophils # Man Lymphocytes # (Manual) Monocytes # (Manual) PT INR APTT Fibrinogen D-Dimer ABG pH POC ABG pCO2 POC ABG pO2 ABG pO2 ABG HCO3 ABG Base Excess ABG Hemoglobin ABG Sodium ABG Chloride ABG Glucose VBG pH Oxyhemoglobin Carboxyhemoglobin Sodium Potassium 3.5 L Chloride Carbon Dioxide 32 H BUN 19 H Creatinine 1.8 H Glucose POC Glucose Lactic Acid Calcium 7.2 L Magnesium 2.90 H 3.70 H AST ALT Alkaline Phosphatase Lactate Dehydrogenase NT-Pro-B Natriuret Pep Total Protein Albumin Arterial Blood Glucose Arterial Blood Ionized Calcium Crossmatch 10/06/20 10/06/20 10/06/20 03:12 04:00 04:00 WBC 17.1 H RBC 3.47 L Hgb Hct MCV MCH MCHC RDW 17.4 H Plt Count 82 L Lymph % (Auto) 8.3 L Lymph # (Auto) [place] # (Auto) 1.1 H Seg Neutrophils % 83.8 H Seg Neuts % (Manual) Lymphocytes % (Manual) Monocytes % (Manual) Nucleated RBC % Seg Neutrophils # 14.3 H Seg Neutrophils # Man Lymphocytes # (Manual) Monocytes # (Manual) PT INR APTT Fibrinogen D-Dimer ABG pH 7.474 H POC ABG pCO2 POC ABG pO2 129.5 H ABG pO2 ABG HCO3 ABG Base Excess ABG Hemoglobin 11.4 L ABG Sodium 131.8 L ABG Chloride ABG Glucose 103 H VBG pH Oxyhemoglobin Carboxyhemoglobin 0.3 L Sodium Potassium 3.5 L Chloride Carbon Dioxide BUN 19 H Creatinine 1.8 H Glucose 102 H POC Glucose Lactic Acid Calcium 7.2 L Magnesium AST 307 H ALT 137 H Alkaline Phosphatase Lactate Dehydrogenase NT-Pro-B Natriuret Pep Total Protein 4.5 L Albumin 2.6 L Arterial Blood Glucose 103 H Arterial Blood Ionized Calcium 4.2 L Crossmatch 12/22/20 12/22/20 12/22/20 05:31 08:12 11:00 WBC RBC Hgb Hct MCV MCH MCHC RDW Plt Count Lymph % (Auto) Lymph # (Auto) [place] # (Auto) Seg Neutrophils % Seg Neuts % (Manual) Lymphocytes % (Manual) Monocytes % (Manual) Nucleated RBC % Seg Neutrophils # Seg Neutrophils # Man Lymphocytes # (Manual) Monocytes # (Manual) PT INR APTT Fibrinogen D-Dimer ABG pH POC ABG pCO2 POC ABG pO2 ABG pO2 ABG HCO3 ABG Base Excess ABG Hemoglobin ABG Sodium ABG Chloride ABG Glucose VBG pH Oxyhemoglobin Carboxyhemoglobin Sodium Potassium Chloride Carbon Dioxide BUN Creatinine Glucose POC Glucose 116 H Lactic Acid Calcium Magnesium 5.40 H 6.50 H AST ALT Alkaline Phosphatase Lactate Dehydrogenase NT-Pro-B Natriuret Pep Total Protein Albumin Arterial Blood Glucose Arterial Blood Ionized Calcium Crossmatch 10/06/20 10/06/20 10/06/20 11:50 20:13 20:17 WBC RBC Hgb Hct MCV MCH MCHC RDW Plt Count Lymph % (Auto) Lymph # (Auto) [place] # (Auto) Seg Neutrophils % Seg Neuts % (Manual) Lymphocytes % (Manual) Monocytes % (Manual) Nucleated RBC % Seg Neutrophils # Seg Neutrophils # Man Lymphocytes # (Manual) Monocytes # (Manual) PT INR APTT Fibrinogen D-Dimer ABG pH POC ABG pCO2 POC ABG pO2 ABG pO2 ABG HCO3 ABG Base Excess ABG Hemoglobin ABG Sodium ABG Chloride ABG Glucose VBG pH Oxyhemoglobin Carboxyhemoglobin Sodium Potassium Chloride Carbon Dioxide BUN Creatinine Glucose POC Glucose 106 H 112 H Lactic Acid Calcium Magnesium 6.20 H AST ALT Alkaline Phosphatase Lactate Dehydrogenase NT-Pro-B Natriuret Pep Total Protein Albumin Arterial Blood Glucose Arterial Blood Ionized Calcium Crossmatch 10/06/20 10/06/20 10/07/20 22:29 23:57 00:35 WBC RBC Hgb Hct MCV MCH MCHC RDW Plt Count Lymph % (Auto) Lymph # (Auto) [place] # (Auto) Seg Neutrophils % Seg Neuts % (Manual) Lymphocytes % (Manual) Monocytes % (Manual) Nucleated RBC % Seg Neutrophils # Seg Neutrophils # Man Lymphocytes # (Manual) Monocytes # (Manual) PT INR APTT Fibrinogen D-Dimer ABG pH POC ABG pCO2 POC ABG pO2 ABG pO2 ABG HCO3 ABG Base Excess ABG Hemoglobin ABG Sodium ABG Chloride ABG Glucose VBG pH Oxyhemoglobin Carboxyhemoglobin Sodium Potassium Chloride Carbon Dioxide BUN Creatinine Glucose POC Glucose 126 H 133 H Lactic Acid Calcium Magnesium 5.90 H AST ALT Alkaline Phosphatase Lactate Dehydrogenase NT-Pro-B Natriuret Pep Total Protein Albumin Arterial Blood Glucose Arterial Blood Ionized Calcium Crossmatch 10/07/20 10/07/20 10/07/20 02:22 03:16 04:06 WBC RBC Hgb Hct MCV MCH MCHC RDW Plt Count Lymph % (Auto) Lymph # (Auto) [place] # (Auto) Seg Neutrophils % Seg Neuts % (Manual) Lymphocytes % (Manual) Monocytes % (Manual) Nucleated RBC % Seg Neutrophils # Seg Neutrophils # Man Lymphocytes # (Manual) Monocytes # (Manual) PT INR APTT Fibrinogen D-Dimer ABG pH POC ABG pCO2 POC ABG pO2 ABG pO2 ABG HCO3 ABG Base Excess ABG Hemoglobin 11.6 L ABG Sodium ABG Chloride ABG Glucose 156 H VBG pH Oxyhemoglobin Carboxyhemoglobin 0.3 L Sodium Potassium Chloride Carbon Dioxide BUN Creatinine Glucose POC Glucose 124 H 135 H Lactic Acid Calcium Magnesium AST ALT Alkaline Phosphatase Lactate Dehydrogenase NT-Pro-B Natriuret Pep Total Protein Albumin Arterial Blood Glucose 156 H Arterial Blood Ionized Calcium 4.2 L Crossmatch 10/07/20 10/07/20 10/07/20 05:45 07:05 07:05 WBC 19.2 H RBC 3.57 L Hgb Hct MCV MCH MCHC 35 H RDW 17.1 H Plt Count 129 L Lymph % (Auto) Lymph # (Auto) [place] # (Auto) Seg Neutrophils % Seg Neuts % (Manual) Lymphocytes % (Manual) Monocytes % (Manual) Nucleated RBC % Seg Neutrophils # Seg Neutrophils # Man Lymphocytes # (Manual) Monocytes # (Manual) PT INR APTT Fibrinogen D-Dimer ABG pH POC ABG pCO2 POC ABG pO2 ABG pO2 ABG HCO3 ABG Base Excess ABG Hemoglobin ABG Sodium ABG Chloride ABG Glucose VBG pH Oxyhemoglobin Carboxyhemoglobin Sodium Potassium Chloride Carbon Dioxide BUN 21 H Creatinine 1.7 H Glucose 171 H POC Glucose 149 H Lactic Acid Calcium 7.4 L Magnesium AST 245 H ALT 147 H Alkaline Phosphatase Lactate Dehydrogenase NT-Pro-B Natriuret Pep Total Protein 5.3 L Albumin 2.8 L Arterial Blood Glucose Arterial Blood Ionized Calcium Crossmatch 10/07/20 07:05 WBC RBC Hgb Hct MCV MCH MCHC RDW Plt Count Lymph % (Auto) Lymph # (Auto) [place] # (Auto) Seg Neutrophils % Seg Neuts % (Manual) Lymphocytes % (Manual) Monocytes % (Manual) Nucleated RBC % Seg Neutrophils # Seg Neutrophils # Man Lymphocytes # (Manual) Monocytes # (Manual) PT INR APTT Fibrinogen D-Dimer ABG pH POC ABG pCO2 POC ABG pO2 ABG pO2 ABG HCO3 ABG Base Excess ABG Hemoglobin ABG Sodium ABG Chloride ABG Glucose VBG pH Oxyhemoglobin Carboxyhemoglobin Sodium Potassium Chloride Carbon Dioxide BUN Creatinine Glucose POC Glucose Lactic Acid Calcium Magnesium 6.10 H AST ALT Alkaline Phosphatase Lactate Dehydrogenase NT-Pro-B Natriuret Pep Total Protein Albumin Arterial Blood Glucose Arterial Blood Ionized Calcium Crossmatch
[2020-10-07 12:14] LABS: Total Cells Counted 100
[2020-10-07 12:16] LABS: Macrocytosis Few
[2020-10-07 12:17] LABS: Hypochromasia Few; Platelet Estimate Consistent w Auto
--- NOTE | 2020-10-07 12:53 | Progress Note ---
Assessment and Plan Cultures: Blood culture: no growth A/P: 30-year-old female with GERD, hypertension, seizure disorder was admitted to the hospital at 36 weeks with seizures. She became hypoxic and pulseless requiring CPR. Following emergent section, patient developed hemorrhage, DIC. She has been admitted to ICU, remains on the vent: #Shock, DIC, hemorrhage: ?possible sepsis. Possible pneumonia versus fluid overload. #Acute kidney injury #Transaminitis #Preeclampsia Recs: Continue with IV cefepime, renally adjusted, D3 of 5 leucocytosis is probably from steroids Venancio Craven MD, FACP [facility] ([facility] O: [phone] F: [phone] Subjective Date of service: 10/07/20 Principal diagnosis: Eclampsia/HELLP Syndrome, ADOLPH, DIC; s/p , s/p supracervical hyst Interval history: No fever. Remains on the vent. Off pressors. On tube feeds. Objective - Exam Narrative Exam: Physical Exam: Constitutional: sedated, intubated, on the vent Head, Ears, Nose: Normocephalic, atraumatic. External ears, nose normal Eyes: Conjunctivae/corneas clear. No icterus. No ptosis. Neck: intubated Oral: intubated Cardiovascular: S1, S2 + Respiratory: AE fair bilaterally and equal GI: Soft, bowel sounds hypoactive, drain present, lower abdominal incision present with dressing, right subclavian central line present Musculoskeletal: No pedal edema, no cyanosis. Skin: No rash or abscess Hem/Lymphatic: No palpable cervical or supraclavicular nodes. No lymphangitis Psych: no agitation Neurological: sedated, intubated, on the vent, exam limited - Constitutional Vitals: Vital Signs Temp Pulse Resp BP Pulse Ox 99.1 F 85 14 185/101 93 10/07/20 11:38 10/07/20 11:34 10/07/20 11:33 10/07/20 11:34 10/07/20 11:30 Temperature -Last 24 Hours Temperature 99.1 F Temperature 98.2 F Temperature 97.2 F Temperature 99.7 F Temperature 99.5 F Temperature 98.7 F - Labs CBC & Chem 7: 10/07/20 07:05 10/07/20 07:05 Labs: Abnormal lab results 10/06/20 10/06/20 10/06/20 Range/Units 20:13 20:17 22:29 WBC (4.5-11.0) K/mm3 RBC (3.65-5.03) M/mm3 MCHC (30-34) % RDW (13.2-15.2) % Plt Count (140-440) K/mm3 Seg Neuts % (Manual) (40.0-70.0) % Lymphocytes % (Manual) (13.4-35.0) % Seg Neutrophils # Man (1.8-7.7) K/mm3 ABG Hemoglobin (12.0-17.5) ABG Glucose (65-95) mg/dL Carboxyhemoglobin (0.5-1.5) BUN (7-17) mg/dL Creatinine (0.6-1.2) mg/dL Glucose (65-100) mg/dL POC Glucose 112 H 126 H (70-105) mg/dL Calcium (8.4-10.2) mg/dL Magnesium 6.20 H (1.7-2.3) mg/dL AST (5-40) units/L ALT (7-56) units/L Total Protein (6.3-8.2) g/dL Albumin (3.9-5) g/dL Arterial Blood Glucose (65-95) mg/dL Arterial Blood Ionized Calcium (4.6-5.3) mg/dL 10/06/20 10/07/20 10/07/20 Range/Units 23:57 00:35 02:22 WBC (4.5-11.0) K/mm3 RBC (3.65-5.03) M/mm3 MCHC (30-34) % RDW (13.2-15.2) % Plt Count (140-440) K/mm3 Seg Neuts % (Manual) (40.0-70.0) % Lymphocytes % (Manual) (13.4-35.0) % Seg Neutrophils # Man (1.8-7.7) K/mm3 ABG Hemoglobin (12.0-17.5) ABG Glucose (65-95) mg/dL Carboxyhemoglobin (0.5-1.5) BUN (7-17) mg/dL Creatinine (0.6-1.2) mg/dL Glucose (65-100) mg/dL POC Glucose 133 H 124 H (70-105) mg/dL Calcium (8.4-10.2) mg/dL Magnesium 5.90 H (1.7-2.3) mg/dL AST (5-40) units/L ALT (7-56) units/L Total Protein (6.3-8.2) g/dL Albumin (3.9-5) g/dL Arterial Blood Glucose (65-95) mg/dL Arterial Blood Ionized Calcium (4.6-5.3) mg/dL 10/07/20 10/07/20 10/07/20 Range/Units 03:16 04:06 05:45 WBC (4.5-11.0) K/mm3 RBC (3.65-5.03) M/mm3 MCHC (30-34) % RDW (13.2-15.2) % Plt Count (140-440) K/mm3 Seg Neuts % (Manual) (40.0-70.0) % Lymphocytes % (Manual) (13.4-35.0) % Seg Neutrophils # Man (1.8-7.7) K/mm3 ABG Hemoglobin 11.6 L (12.0-17.5) ABG Glucose 156 H (65-95) mg/dL Carboxyhemoglobin 0.3 L (0.5-1.5) BUN (7-17) mg/dL Creatinine (0.6-1.2) mg/dL Glucose (65-100) mg/dL POC Glucose 135 H 149 H (70-105) mg/dL Calcium (8.4-10.2) mg/dL Magnesium (1.7-2.3) mg/dL AST (5-40) units/L ALT (7-56) units/L Total Protein (6.3-8.2) g/dL Albumin (3.9-5) g/dL Arterial Blood Glucose 156 H (65-95) mg/dL Arterial Blood Ionized Calcium 4.2 L (4.6-5.3) mg/dL 10/07/20 10/07/20 10/07/20 Range/Units 07:05 07:05 07:05 WBC 19.2 H (4.5-11.0) K/mm3 RBC 3.57 L (3.65-5.03) M/mm3 MCHC 35 H (30-34) % RDW 17.1 H (13.2-15.2) % Plt Count 129 L (140-440) K/mm3 Seg Neuts % (Manual) 94.0 H (40.0-70.0) % Lymphocytes % (Manual) 6.0 L (13.4-35.0) % Seg Neutrophils # Man 18.0 H (1.8-7.7) K/mm3 ABG Hemoglobin (12.0-17.5) ABG Glucose (65-95) mg/dL Carboxyhemoglobin (0.5-1.5) BUN 21 H (7-17) mg/dL Creatinine 1.7 H (0.6-1.2) mg/dL Glucose 171 H (65-100) mg/dL POC Glucose (70-105) mg/dL Calcium 7.4 L (8.4-10.2) mg/dL Magnesium 6.10 H (1.7-2.3) mg/dL AST 245 H (5-40) units/L ALT 147 H (7-56) units/L Total Protein 5.3 L (6.3-8.2) g/dL Albumin 2.8 L (3.9-5) g/dL Arterial Blood Glucose (65-95) mg/dL Arterial Blood Ionized Calcium (4.6-5.3) mg/dL 10/07/20 Range/Units 12:21 WBC (4.5-11.0) K/mm3 RBC (3.65-5.03) M/mm3 MCHC (30-34) % RDW (13.2-15.2) % Plt Count (140-440) K/mm3 Seg Neuts % (Manual) (40.0-70.0) % Lymphocytes % (Manual) (13.4-35.0) % Seg Neutrophils # Man (1.8-7.7) K/mm3 ABG Hemoglobin (12.0-17.5) ABG Glucose (65-95) mg/dL Carboxyhemoglobin (0.5-1.5) BUN (7-17) mg/dL Creatinine (0.6-1.2) mg/dL Glucose (65-100) mg/dL POC Glucose 124 H (70-105) mg/dL Calcium (8.4-10.2) mg/dL Magnesium (1.7-2.3) mg/dL AST (5-40) units/L ALT (7-56) units/L Total Protein (6.3-8.2) g/dL Albumin (3.9-5) g/dL Arterial Blood Glucose (65-95) mg/dL Arterial Blood Ionized Calcium (4.6-5.3) mg/dL
[2020-10-07] MEDS: TOPIRAMATE TAB 25 MG TAB PO SCH ×2 (14:52→21:02)
[2020-10-07] MEDS: LORazepam 2 MG/ML VIAL IV PRN (14:52)
--- NOTE | 2020-10-07 15:28 | Progress Note ---
Assessment and Plan -- Sepsis with presumed Pneumonia Teat with iv abx, follow Cx --Acute respiratory failure with hypoxia Patient intubated Vent management per CC --DIC (disseminated intravascular coagulation) vs HELLP syndrome Has anemia,thrombocytopenia and elevated liver enzymes Patient received multiple units of RBCs, FFP's, cryo Hematology/oncology recommendations appreciated Continue to trend fibrinogen and INR Critical care on board --Possible Eclampsia/HELLP Syndrome Patient presented with seizure-->hypoxia-->urgent C section-->hysterectomy for severe bleeding/DIC developed severe anemia-->received RBC, plt, FFP, cryo was on max pressors-->now off pressors still on vent, on sedation Hematology following --Cardiac arrest ACLS protocol followed by revival Echo pending --Shock Now on one pressor Likely hypovolemic. Started on empirical antibiotics for possible sepsis. Continue to monitor blood pressure closely Trend H&H and transfuse as needed --Lactic acidosis As a result of poor organ perfusion and possible sepsis Continue IV hydration. Lactic acid is trending down Nephrology on board --ADOLPH As a result of hypoperfusion and shock Continue IV hydration Cr stable at 1.7. --DVT prophylaxis Patient in DIC No anticoagulants The high probability of a clinically significant, sudden or life threatening deterioration of the [pulmonary] system(s) required my full and direct attention, intervention and personal management. The aggregate critical care time was [35] minutes. This time is in addition to time spent performing reported procedures but includes the following: [x] Data Review and interpretation [x] Patient assessment and monitoring of vital signs [x] Documentation [x] Medication orders and management brief History 30 year old -[place] female CHE 10/25/20 at 36w5d who presents with seizures in triage on 10/02/20. Pt was not able to provide history but per pt's , she presented to the hospital to return a 24 hour urine specimen for analysis. She then suddenly reported that she did not feel good. She was taken to labor and delivery and shortly after arrival, she began seizing. During this time, a code met was called because the patient became hypoxic. She was then noted to be without a pulse. Chest compressions were started immediately, and the patient was emergently taken to the operating room for delivery of the fetus. 01This patient has had care at [facility] with comanagement by SARAH since 11 wks complicated by ADHD, morbid obesity, generalized anxiety disorder, panic attacks, chronic narcotic use, fibromyalgia, GERD, Irritable Bowel Syndrome, Migraines, h/o endometrial ablation and ovarian vein embolization, genital herpes, insomnia, LGA fetus, nausea and vomiting, polyhydramnios, quad screen positive for Down's Syndrome, and previous x 3. She is GBS negative. 11:30: Pt brought to L&D triage for evaluation of possible labor. Pt accompanied by her spouse. Pt spouse poor historian; unable to obtain history- allergies at this time. Pt taken from registration to triage area via WC. Pt unresponsive, actively seizing with snorous respirations. axle inspector, Kassy, called and requesting assistance. 11:35: Multiple staff at bedside. Pt 02 sat 67% on nonrebreather, unable to read BP at this time. Yifan Theodore CRNA, at bedside for intubation and assistance with IV insertion. INT attempt by multiple RNs unsuccessful at this time. 11:42: Pt being bagged by KORIN, 02% 79%. No pulse palpated, compressions started at this time; bharati young called and Dr. Newberry preparing OR for emergent c/s. 11:44: Continued compressions on stretcher while transporting pt to OR 1. Pt being bagged with jaw thrust manuever in place by KORIN Stringer student. 11:45: Arrival to OR 1. Dr. Newberry and Dr. Portillo present for emergent c/s. Code team arrived for continued care. patient revived and c/s done Patient has been bleeding from C/s site followed by supracervical hysterectomy for severe bleeding Patient transfused multiple units of PRBC, Patient in DIC. Transferred to the ICU 10/03. Patient seen and examined at bedside this morning. Patient is nonresponsive and mechanically ventilated. On pressors. Labs reviewed-has leukocytosis, anemia, thrombocytopenia, ADOLPH and lactic acidosis. Started on IV antibiotics to cover possible sepsis secondary to DIC. Hematology oncology recommendations appreciated-needs additional cryoprecipitate and FFP. Monitor D-dimer, fibrinogen and frequent labs. Nephrology consulted for lactic acidosis and ADOLPH. 10/04. Remains mechanically ventilated. Kevin antibiotics. Labs shows improved acidosis - lactic acid 3.5. Hb drop noted. Getting transfused 2 units PRBCs. P latelet count is ~40k. Continue to monitor labs closely. Critical care team on board. 10/05; xray reviewed, concerning for multifocal infilrate, likely underlying Pneumonia, will add ID consult to assist with management of this critically ill patient, start tube feed, closely monitor renal system 10/06: Resumed care, remains on mechanical ventilation. No active bleeding, H&H stable. Continue to monitor CBC and BMP. Continue IV antibiotic for underlying pneumonia. Follow critical care and ID recommendation. 10/07: Remains on mechanical ventilation. No active bleeding, H&H stable. Cri tical care following, wean off ventilation as tolerated. Subjective Date of service: 10/07/20 Principal diagnosis: Eclampsia/HELLP Syndrome, ADOLPH, DIC; s/p , s/p supracervical hyst Interval history: Patient seen and examined Remains intubated No active bleeding H&H stable Discussed with RN at the bedside Objective - Exam Narrative Exam: vITAL SIGNS: Reviewed. GENERAL: Intubated HEAD: No signs of head trauma. EYES: Pupils are equal. MOUTH: OT in place NECK: No adenopathy, no JVD. CHEST: Rales posteriorly CARDIAC: normal S1 and S2, without murmurs, gallops, or rubs. ABDOMEN: Soft, non tender and non distended. surgical wound in tact, No rebound or guarding, and no masses palpated. Bowel Sounds normal. AVINASH drain intact with bloody fluid MUSCULOSKELETAL: No edema NEUROLOGIC EXAM: Intubated SKIN: No obvious lesions - Constitutional Vitals: Vital Signs - 12hr 10/07/20 10/07/20 10/07/20 03:30 03:45 04:00 Temperature 97.2 F L Pulse Rate 75 74 74 Pulse Rate [ 74 From Monitor] Respiratory 19 20 20 Rate Blood Pressure 121/67 120/69 123/70 O2 Sat by Pulse 98 97 98 Oximetry 10/07/20 10/07/20 10/07/20 04:11 04:15 04:30 Temperature Pulse Rate 76 76 77 Pulse Rate [ From Monitor] Respiratory 15 20 Rate Blood Pressure 123/70 126/71 128/72 O2 Sat by Pulse 96 96 96 Oximetry 10/07/20 10/07/20 10/07/20 04:45 05:00 05:15 Temperature Pulse Rate 78 76 76 Pulse Rate [ From Monitor] Respiratory 20 19 20 Rate Blood Pressure 122/67 126/75 120/68 O2 Sat by Pulse 95 96 95 Oximetry 10/07/20 10/07/20 10/07/20 05:30 05:45 06:00 Temperature Pulse Rate 78 75 76 Pulse Rate [ From Monitor] Respiratory 19 20 20 Rate Blood Pressure 129/77 122/75 122/70 O2 Sat by Pulse 97 96 96 Oximetry 10/07/20 10/07/20 10/07/20 06:15 06:30 06:45 Temperature Pulse Rate 75 77 76 Pulse Rate [ From Monitor] Respiratory 20 20 19 Rate Blood Pressure 124/72 123/71 127/71 O2 Sat by Pulse 95 95 96 Oximetry 10/07/20 10/07/20 10/07/20 07:00 07:15 07:30 Temperature Pulse Rate 75 77 75 Pulse Rate [ From Monitor] Respiratory 20 20 20 Rate Blood Pressure 124/71 127/77 125/73 O2 Sat by Pulse 96 96 95 Oximetry 10/07/20 10/07/20 10/07/20 07:43 07:45 08:00 Temperature 98.2 F Pulse Rate 78 77 75 Pulse Rate [ From Monitor] Respiratory 19 20 Rate Blood Pressure 125/73 125/73 132/67 O2 Sat by Pulse 100 100 95 Oximetry 10/07/20 10/07/20 10/07/20 08:15 08:30 08:45 Temperature Pulse Rate 75 75 76 Pulse Rate [ From Monitor] Respiratory 20 18 17 Rate Blood Pressure 127/70 125/69 122/71 O2 Sat by Pulse 95 95 95 Oximetry 10/07/20 10/07/20 10/07/20 09:00 09:15 09:30 Temperature Pulse Rate 75 76 74 Pulse Rate [ From Monitor] Respiratory 18 17 19 Rate Blood Pressure 124/76 127/73 125/72 O2 Sat by Pulse 95 95 95 Oximetry 10/07/20 10/07/20 10/07/20 09:45 10:00 10:15 Temperature Pulse Rate 78 75 76 Pulse Rate [ From Monitor] Respiratory 17 19 17 Rate Blood Pressure 129/79 128/73 129/78 O2 Sat by Pulse 94 96 95 Oximetry 10/07/20 10/07/20 10/07/20 10:30 10:45 11:00 Temperature Pulse Rate 79 84 88 Pulse Rate [ From Monitor] Respiratory 12 14 14 Rate Blood Pressure 135/84 153/97 171/102 O2 Sat by Pulse 96 94 93 Oximetry 10/07/20 10/07/20 10/07/20 11:15 11:16 11:30 Temperature Pulse Rate 85 84 89 Pulse Rate [ From Monitor] Respiratory 14 13 Rate Blood Pressure 165/96 166/101 185/101 O2 Sat by Pulse 93 93 93 Oximetry 10/07/20 10/07/20 10/07/20 11:33 11:34 11:38 Temperature 99.1 F Pulse Rate 85 Pulse Rate [ From Monitor] Respiratory 14 Rate Blood Pressure 185/101 O2 Sat by Pulse Oximetry 10/07/20 14:52 Temperature Pulse Rate Pulse Rate [ From Monitor] Respiratory 22 Rate Blood Pressure O2 Sat by Pulse Oximetry - Labs CBC & Chem 7: 10/10/20 04:00 10/10/20 04:00 Labs: Abnormal lab results 10/06/20 10/06/20 10/06/20 Range/Units 20:13 20:17 22:29 WBC (4.5-11.0) K/mm3 RBC (3.65-5.03) M/mm3 MCHC (30-34) % RDW (13.2-15.2) % Plt Count (140-440) K/mm3 Seg Neuts % (Manual) (40.0-70.0) % Lymphocytes % (Manual) (13.4-35.0) % Seg Neutrophils # Man (1.8-7.7) K/mm3 ABG Hemoglobin (12.0-17.5) ABG Glucose (65-95) mg/dL Carboxyhemoglobin (0.5-1.5) BUN (7-17) mg/dL Creatinine (0.6-1.2) mg/dL Glucose (65-100) mg/dL POC Glucose 112 H 126 H (70-105) mg/dL Calcium (8.4-10.2) mg/dL Magnesium 6.20 H (1.7-2.3) mg/dL AST (5-40) units/L ALT (7-56) units/L Total Protein (6.3-8.2) g/dL Albumin (3.9-5) g/dL Arterial Blood Glucose (65-95) mg/dL Arterial Blood Ionized Calcium (4.6-5.3) mg/dL 10/06/20 10/07/20 10/07/20 Range/Units 23:57 00:35 02:22 WBC (4.5-11.0) K/mm3 RBC (3.65-5.03) M/mm3 MCHC (30-34) % RDW (13.2-15.2) % Plt Count (140-440) K/mm3 Seg Neuts % (Manual) (40.0-70.0) % Lymphocytes % (Manual) (13.4-35.0) % Seg Neutrophils # Man (1.8-7.7) K/mm3 ABG Hemoglobin (12.0-17.5) ABG Glucose (65-95) mg/dL Carboxyhemoglobin (0.5-1.5) BUN (7-17) mg/dL Creatinine (0.6-1.2) mg/dL Glucose (65-100) mg/dL POC Glucose 133 H 124 H (70-105) mg/dL Calcium (8.4-10.2) mg/dL Magnesium 5.90 H (1.7-2.3) mg/dL AST (5-40) units/L ALT (7-56) units/L Total Protein (6.3-8.2) g/dL Albumin (3.9-5) g/dL Arterial Blood Glucose (65-95) mg/dL Arterial Blood Ionized Calcium (4.6-5.3) mg/dL 10/07/20 10/07/20 10/07/20 Range/Units 03:16 04:06 05:45 WBC (4.5-11.0) K/mm3 RBC (3.65-5.03) M/mm3 MCHC (30-34) % RDW (13.2-15.2) % Plt Count (140-440) K/mm3 Seg Neuts % (Manual) (40.0-70.0) % Lymphocytes % (Manual) (13.4-35.0) % Seg Neutrophils # Man (1.8-7.7) K/mm3 ABG Hemoglobin 11.6 L (12.0-17.5) ABG Glucose 156 H (65-95) mg/dL Carboxyhemoglobin 0.3 L (0.5-1.5) BUN (7-17) mg/dL Creatinine (0.6-1.2) mg/dL Glucose (65-100) mg/dL POC Glucose 135 H 149 H (70-105) mg/dL Calcium (8.4-10.2) mg/dL Magnesium (1.7-2.3) mg/dL AST (5-40) units/L ALT (7-56) units/L Total Protein (6.3-8.2) g/dL Albumin (3.9-5) g/dL Arterial Blood Glucose 156 H (65-95) mg/dL Arterial Blood Ionized Calcium 4.2 L (4.6-5.3) mg/dL 10/07/20 10/07/20 10/07/20 Range/Units 07:05 07:05 07:05 WBC 19.2 H (4.5-11.0) K/mm3 RBC 3.57 L (3.65-5.03) M/mm3 MCHC 35 H (30-34) % RDW 17.1 H (13.2-15.2) % Plt Count 129 L (140-440) K/mm3 Seg Neuts % (Manual) 94.0 H (40.0-70.0) % Lymphocytes % (Manual) 6.0 L (13.4-35.0) % Seg Neutrophils # Man 18.0 H (1.8-7.7) K/mm3 ABG Hemoglobin (12.0-17.5) ABG Glucose (65-95) mg/dL Carboxyhemoglobin (0.5-1.5) BUN 21 H (7-17) mg/dL Creatinine 1.7 H (0.6-1.2) mg/dL Glucose 171 H (65-100) mg/dL POC Glucose (70-105) mg/dL Calcium 7.4 L (8.4-10.2) mg/dL Magnesium 6.10 H (1.7-2.3) mg/dL AST 245 H (5-40) units/L ALT 147 H (7-56) units/L Total Protein 5.3 L (6.3-8.2) g/dL Albumin 2.8 L (3.9-5) g/dL Arterial Blood Glucose (65-95) mg/dL Arterial Blood Ionized Calcium (4.6-5.3) mg/dL 10/07/20 Range/Units 12:21 WBC (4.5-11.0) K/mm3 RBC (3.65-5.03) M/mm3 MCHC (30-34) % RDW (13.2-15.2) % Plt Count (140-440) K/mm3 Seg Neuts % (Manual) (40.0-70.0) % Lymphocytes % (Manual) (13.4-35.0) % Seg Neutrophils # Man (1.8-7.7) K/mm3 ABG Hemoglobin (12.0-17.5) ABG Glucose (65-95) mg/dL Carboxyhemoglobin (0.5-1.5) BUN (7-17) mg/dL Creatinine (0.6-1.2) mg/dL Glucose (65-100) mg/dL POC Glucose 124 H (70-105) mg/dL Calcium (8.4-10.2) mg/dL Magnesium (1.7-2.3) mg/dL AST (5-40) units/L ALT (7-56) units/L Total Protein (6.3-8.2) g/dL Albumin (3.9-5) g/dL Arterial Blood Glucose (65-95) mg/dL Arterial Blood Ionized Calcium (4.6-5.3) mg/dL HEART Score - HEART Score Age: < 45 Risk factors: 1-2 risk factors - Critical Actions Critical Actions: >7 pts:50-65% risk of adverse cardiac event. Early invasive measures
[2020-10-07] MEDS: hydrALAZINE 20 MG/1 ML INJ IV PRN (18:41)
--- NOTE | 2020-10-07 19:27 | Progress Note ---
Assessment and Plan Impression: * Nonoliguric acute kidney injury secondary to ischemic ATN * Cardiac arrest * Shock * Acute hypoxic respiratory failure * DIC * Anemia secondary to acute blood loss * hemorrhage * Mixed respiratory/metabolic acidosis * Presumed eclampsia * Hypokalemia, mild * Hypocalcemia Plan: * Renal function is stable. There is no need for renal replacement therapy at this time * Transfusion of blood products per primary team and hematology * Pressors prn to maintain MAP>65 * Recheck ionized calcium * Strict I/O * Vent management per pulmonary/CCM * Dose medications for renal function * Avoid potential nephrotoxins Subjective Date of service: 10/07/20 Principal diagnosis: Eclampsia/HELLP Syndrome, ADOLPH, DIC; s/p , s/p supracervical hyst Interval history: Patient was seen for her renal issues Nursing, interdisciplinary and consult notes were reviewed Vitals, input and output, medications and labs were reviewed Remains intubated Reasonable urine output Objective - Exam Narrative Exam: Constitutional: Sedated. Intubated. Head: Normocephalic/atraumatic Neck: Supple Lungs: Intubated. Mechanical breath sounds. Cardiovascular: RRR, no M/R/G Abdomen: Soft, nontender, NABS Extremities: No edema, pulses within normal limits Skin: Intact, no rash Neuro: Sedated. - Vital Signs Vital signs: Vital Signs - 12hr 10/07/20 10/07/20 10/07/20 07:30 07:43 07:45 Temperature Pulse Rate 75 78 77 Respiratory 20 19 Rate Blood Pressure 125/73 125/73 125/73 O2 Sat by Pulse 95 100 100 Oximetry 10/07/20 10/07/20 10/07/20 08:00 08:15 08:30 Temperature 98.2 F Pulse Rate 75 75 75 Respiratory 20 20 18 Rate Blood Pressure 132/67 127/70 125/69 O2 Sat by Pulse 95 95 95 Oximetry 10/07/20 10/07/20 10/07/20 08:45 09:00 09:15 Temperature Pulse Rate 76 75 76 Respiratory 17 18 17 Rate Blood Pressure 122/71 124/76 127/73 O2 Sat by Pulse 95 95 95 Oximetry 10/07/20 10/07/20 10/07/20 09:30 09:45 10:00 Temperature Pulse Rate 74 78 75 Respiratory 19 17 19 Rate Blood Pressure 125/72 129/79 128/73 O2 Sat by Pulse 95 94 96 Oximetry 10/07/20 10/07/20 10/07/20 10:15 10:30 10:45 Temperature Pulse Rate 76 79 84 Respiratory 17 12 14 Rate Blood Pressure 129/78 135/84 153/97 O2 Sat by Pulse 95 96 94 Oximetry 10/07/20 10/07/20 10/07/20 11:00 11:15 11:16 Temperature Pulse Rate 88 85 84 Respiratory 14 14 Rate Blood Pressure 171/102 165/96 166/101 O2 Sat by Pulse 93 93 93 Oximetry 10/07/20 10/07/20 10/07/20 11:30 11:33 11:34 Temperature Pulse Rate 89 85 Respiratory 13 14 Rate Blood Pressure 185/101 185/101 O2 Sat by Pulse 93 Oximetry 10/07/20 10/07/20 10/07/20 11:38 11:45 12:00 Temperature 99.1 F Pulse Rate 92 H 79 Respiratory 20 14 Rate Blood Pressure 205/114 153/86 O2 Sat by Pulse 90 99 Oximetry 10/07/20 10/07/20 10/07/20 12:15 12:30 12:45 Temperature Pulse Rate 79 78 78 Respiratory 15 15 26 H Rate Blood Pressure 140/84 149/92 147/87 O2 Sat by Pulse 93 93 93 Oximetry 10/07/20 10/07/20 10/07/20 13:00 13:15 13:30 Temperature Pulse Rate 78 78 76 Respiratory 31 H 16 29 H Rate Blood Pressure 151/87 149/95 147/91 O2 Sat by Pulse 94 93 94 Oximetry 10/07/20 10/07/20 10/07/20 13:45 14:00 14:15 Temperature Pulse Rate 79 80 80 Respiratory 18 17 21 Rate Blood Pressure 160/87 153/92 164/91 O2 Sat by Pulse 93 93 93 Oximetry 10/07/20 10/07/20 10/07/20 14:30 14:45 14:52 Temperature Pulse Rate 85 82 Respiratory 23 18 22 Rate Blood Pressure 164/95 151/87 O2 Sat by Pulse 90 92 Oximetry 10/07/20 10/07/20 10/07/20 15:00 15:15 15:30 Temperature Pulse Rate 82 82 75 Respiratory 16 18 27 H Rate Blood Pressure 141/87 147/91 147/92 O2 Sat by Pulse 92 92 99 Oximetry 1210/07/20 10/07/20 15:45 16:00 16:04 Temperature Pulse Rate 84 83 84 Respiratory 38 H 19 Rate Blood Pressure 148/96 160/87 160/87 O2 Sat by Pulse 93 93 Oximetry 10/07/20 10/07/20 10/07/20 16:15 16:30 16:45 Temperature Pulse Rate 82 89 83 Respiratory 18 22 18 Rate Blood Pressure 159/94 178/106 178/106 O2 Sat by Pulse 92 92 92 Oximetry 10/07/20 10/07/20 10/07/20 16:47 17:00 17:15 Temperature 98.5 F Pulse Rate 84 83 Respiratory 20 21 Rate Blood Pressure 159/97 162/94 O2 Sat by Pulse 92 92 Oximetry 10/07/20 10/07/20 10/07/20 17:30 17:45 18:41 Temperature Pulse Rate 83 84 86 Respiratory 22 22 Rate Blood Pressure 166/85 168/96 176/109 O2 Sat by Pulse 92 92 Oximetry - Lab 10/07/20 07:05 10/07/20 07:05 Most recent lab results ABG pH 7.433 (7.320-7.450) 10/07/20 03:16 ABG pCO2 39.7 mm Hg 10/05/20 05:03 ABG pO2 74.3 mm Hg (80.0-90.0) L 10/05/20 05:03 ABG HCO3 27.5 mmol/L (20.0-26.0) H 10/05/20 05:03 ABG O2 Saturation 96.3 % (95.0-99.0) 10/05/20 05:03 Calcium 7.4 mg/dL (8.4-10.2) L 10/07/20 07:05 Magnesium 6.10 mg/dL (1.7-2.3) H 10/07/20 07:05 Medications & Allergies - Medications Allergies/Adverse Reactions: Allergies egg Allergy (Severe, Verified 05/22/20 16:09) Anaphylaxis NSAIDS (Non-Steroidal Anti-Inflamma Allergy (Severe, Verified 05/22/20 16:09) Unknown pt c/o Palpitations, nervous, had to take benadryl Sulfa (Sulfonamide Antibiotics) Allergy (Severe, Verified 05/22/20 16:09) Anaphylaxis SWELING,NUMBNESS ibuprofen Allergy (Intermediate, Verified 05/22/20 16:09) Bleeding latex Allergy (Verified 05/22/20 16:09) Hives plecanatide [From Trulance] Allergy (Verified 05/22/20 16:09) Anaphylaxis adhesive tape Adverse Reaction (Intermediate, Verified 05/22/20 16:09) Unknown PAPER TAPE OK metoclopramide [From Reglan] Adverse Reaction (Verified 05/22/20 16:09) Unknown Home Medications: Home Medications Medication Instructions Recorded Confirmed Last Taken Type Pantoprazole [Protonix TAB] 20 mg PO DAILY 05/10/19 08/20/20 05/10/19 05:00 History busPIRone 15 mg PO DAILY 01/15/20 08/20/20 Unknown History Albuterol Sulfate [Proventil Hfa] 6.7 gm IH Q4HR PRN #1 hfa.aer.ad 04/07/20 08/20/20 Unknown Rx Topiramate (Nf) [Trokendi XR CAP] 100 mg PO DAILY 08/20/20 08/20/20 Unknown History oxyCODONE /ACETAMINOPHEN [Percocet 1 tab PO Q6HR 08/20/20 08/20/20 Unknown History 5/325 mg] Active Medications: Generic Name Dose Route Start Last Admin Trade Name Freq PRN Reason Stop Dose Admin Acetaminophen 650 mg 10/05/20 16:34 10/05/20 16:47 Acetaminophen 325 Mg/10.15 Ml Oral Liqd Unit Dose FEEDTUBE 650 mg Q6H PRN Administration Non Cardiac Pain or Temp>100.5 Lipase/Protease/Amylase 1 each 10/05/20 11:09 Lipase 10,500/Protease 25,000/Amylase 43,750 (Units) Dr Barakat FEEDTUBE PRN PRN For Clogged Feeding Tube Buspirone HCl 15 mg 10/05/20 11:00 10/07/20 11:34 Buspirone 5 Mg Tab PO 15 mg DAILY ERINN Administration Famotidine 20 mg 10/07/20 10:00 10/07/20 11:50 Famotidine 20 Mg Tab PO 20 mg BID ERINN Administration Hydralazine HCl 20 mg 10/07/20 11:49 10/07/20 18:41 Hydralazine 20 Mg/1 Ml Inj IV 20 mg Q6H PRN Administration SBP >170 Hydromorphone HCl 1 mg 10/07/20 11:26 10/07/20 14:52 Hydromorphone 1 Mg/1 Ml Inj IV 1 mg Q3H PRN Administration Pain , Severe (7-10) Hydrophilic Ointment 1 applic 10/04/20 06:55 Lip Therapy Vaseline TP Q2HR PRN Dry Lips Vasopressin 20 unit/ Sodium 101 mls @ 9.09 mls/hr 10/02/20 17:00 10/04/20 10:02 Chloride IV 0.03 units/min TITR ERINN 9.09 mls/hr Administration 0.03 UNITS/MIN Phenylephrine HCl 100 mg/ 100 mls @ 3 mls/hr 10/02/20 16:30 10/03/20 08:35 Sodium Chloride IV 380 mcg/min TITR ERINN 22.8 mls/hr Administration Protocol 50 MCG/MIN Epinephrine 8 mg/ Sodium 250 mls @ 3.75 mls/hr 10/02/20 18:00 10/04/20 11:06 Chloride IV 0 mcg/min TITR ERINN 0 mls/hr Titration Protocol 2 MCG/MIN Norepinephrine 8 mg/ Sodium 250 mls @ 3.75 mls/hr 10/03/20 01:00 10/04/20 02:06 Chloride IV 0 mcg/min TITR ERINN 0 mls/hr Titration Protocol 2 MCG/MIN Fentanyl Citrate 2,000 mcg in 100 mls @ 6.235 mls/hr 10/04/20 07:00 10/07/20 18:48 Fentanyl Drip Premix IV 4 mcg/kg/hr TITR ERINN 24.94 mls/hr Administration Protocol 1 MCG/KG/HR Dextrose 1,000 mls @ 75 mls/hr 10/04/20 18:50 10/07/20 11:51 D10w IV 75 mls/hr DIRECT ERINN Administration Cefepime HCl 2 gm in 100 mls @ 200 mls/hr 10/05/20 17:00 10/07/20 16:03 Cefepime/Ns 2 Gm/100 Ml IV 200 mls/hr Q12H ERINN Administration Protocol Labetalol HCl 100 mg 10/07/20 14:00 10/07/20 16:04 Labetalol 100 Mg Tab PO 100 mg TID ERINN Administration Lorazepam 2 mg 10/02/20 22:05 10/07/20 14:52 Lorazepam 2 Mg/Ml Vial IV 2 mg Q2H PRN Administration Seizures Methylprednisolone Sodium Succinate 125 mg 10/06/20 15:00 10/07/20 11:34 Methylprednisolone Sod Succinate 125 Mg/2 Ml Inj IV 10/08/20 10:01 125 mg QDAY ERINN Administration Multi-Ingred Cream/Lotion/Oil/Oint 1 applic 10/04/20 06:55 Mineral Oil/Petrolatum, White Ophth Oint 3.5 Gm OU Q4HR PRN Dry Eye(s) Simple Syrup 15 ml 10/05/20 11:09 Simple Syrup 15 Ml FEEDTUBE PRN PRN Hypoglycemia Simple Syrup 30 ml 10/05/20 11:09 Simple Syrup 15 Ml FEEDTUBE PRN PRN Hypoglycemia Sodium Bicarbonate 325 mg 10/05/20 11:09 Sodium Bicarbonate 325 Mg Tab FEEDTUBE PRN PRN For Clogged Feeding Tube Topiramate 50 mg 10/05/20 11:00 10/07/20 14:52 Topiramate Tab 25 Mg Tab PO 50 mg Q12HR ERINN Administration
--- NOTE | 2020-10-07 20:53 | Event Note ---
Date: 10/07/20 Code blue called. Pt treated IAW ACLS protocol with eventual return of perfusing cardiac rhythm. 60 minutes critical care time dedicated to patient care.
--- NOTE | 2020-10-07 21:02 | XRay Report ---
CHEST 1 VIEW 10/07/2020 7:51 PM INDICATION / CLINICAL INFORMATION: new ett placement. COMPARISON: 2:36 AM same day FINDINGS: SUPPORT DEVICES: ET tube has tip 3.8 cm above juaquin. NG tube enters stomach. Right IJ CVL again proj ects over SVC HEART / MEDIASTINUM: No significant abnormality. LUNGS / PLEURA: Bilateral streaky parenchymal disease again noted, unchanged when accounting for diff erences in technique. No pneumothorax. ADDITIONAL FINDINGS: No significant additional findings. IMPRESSION: 1. Stable bilateral pneumonia Signer Name: Raul Poole MD Signed: 10/07/2020 8:57 PM Workstation Name: [id number]
[2020-10-08] MEDS: DEXTROSE 10% IN WATER 1,000 ML IV SCH ×2 (00:39→15:07)
[2020-10-08] MEDS ORDERED: EPINEPHrine 1 MG/10 ML SYRINGE ONE (00:47)
[2020-10-08] MEDS: CEFEPIME/NS 2 GM/100 ML 2 GM/100 ML BAG IV SCH ×2 (04:34→18:54)
[2020-10-08 07:16] LABS: Hematocrit 31.7 % (30.3-42.9); Hemoglobin 10.4 gm/dl (10.1-14.3); Mean Corpuscular HGB Conc 33 % (30-34); Mean Corpuscular Volume 90 fl (79-97); Platelet Count 178 K/mm3 (140-440); Red Blood Count 3.54 M/mm3 (3.65-5.03); Red Cell Distribution Width 17.8 % (13.2-15.2)
[2020-10-08] MEDS: fentaNYL DRIP Premix 2,000 MCG/100 ML BAG IV SCH (08:29)
--- NOTE | 2020-10-08 09:03 | XRay Report ---
CHEST 1 VIEW [id number] INDICATION / CLINICAL INFORMATION: follow up respiratory failure COMPARISON: 10/07/2020 FINDINGS: SUPPORT DEVICES: Stable HEART / MEDIASTINUM: Stable LUNGS / PLEURA: Congestive changes continue. Bilateral pulmonary infiltrates/edema continue with slig ht worsening seen. Small right pleural effusion is again noted. No pneumothorax. ADDITIONAL FINDINGS: No significant additional findings. Signer Name: Macario Morelos MD Signed: 10/08/2020 8:59 AM Workstation Name: [id number]
[2020-10-08 09:24] LABS: Albumin 2.7 g/dL (3.9-5); Calcium 7.6 mg/dL (8.4-10.2)
--- NOTE | 2020-10-08 09:33 | Progress Note ---
Assessment and Plan 30 y/o female with Eclampsia, s/p emergent section with DIC, acute respiratory failure and worsening renal function. 10/08/2020: Will start patient on precedex today. Plan is to wean off fent drip. Will increase buspar to BID. Need to see patient on as little sedation as possible to determine neurological status. EEG has still not been read. Mag stopped yesterday. Largest concern now is neurologic function. 10/07/2020: Head CT unremarkable. Await EEG to be read. Will stop mag Drip. If seizures occur then will load with Keppra and start BID dosing of this. Appreciate OB note. Continue D10 as sugars are still not severely elevated until feeds are at goal. PRN ativan present as well. Will add dilaudid for pain control. Increased BB to TID and added PRN hydralazine 10/06/2020: Stat Head CT today. Likely needs EEG. Will order. Continue Mag drip and follow up levels. Continue feeds. Continue to wean FiO2 as tolerated. Hold sedatives but can give PRN ativan as needed for seizure activity. Continue D10 as Tube feeds are not at goal yet. Guarded prognosis with mental state. 10/05/2020: Feed today. Stop Albumin and Abx. Will stop D10 once feeds start but will continue q2 hour FSBS until 3 consecutive >180. H/H stable. Will continue to aggressively wean FiO2. Patient has a 6.5 tube that will likely impede PSV trials given her size so will attempt to change out. Also will restart her home meds for anxiety and chronic migraine therapy. Prognosis is still guarded but promising given her hemodynamic stability. Continue chowdhury for accurate urine out put. 10/04/2020: Much improved today. Still very ill however. Down to just one pressor. Still with good urine output. Await chemistry results from this am. Likely can stop Bicarb drip given improvement in pH but would like to see bicarb on blood work. Agree with continued transfusion of blood products. Needs fibrinongen levels as well as repeat coags. I cannot see the standing orders on my screen so will call down to lab and let them know what's needed. I know she has had at as 2 cryo's but I am not exactly sure if the count is accurate in the computer in regards to PRBC's and FFP's. Platelets lower this am but still greater than 30K. Continue chowdhury for I/O measurement. Will start to wean FiO2 on vent. CXR looks like edema but oxygenation is stable right now. Resuscitation is the most important thing right now. Will continue abx therapy at least 24 more hours. Prognosis is still very guarded but patient showing signs of improvement. 1. CV-Extremely volume deplete as well as intrasvascular depletion. Will continue to bolus with LR and saline as needed. Will add Albumin to help with intravascular volume. Spoke with OB attending over phone yesterday. No acute indication for steroids at this time. Serial H/H's given maximum pressor requirements. Will transfuse to keep up with AVINASH drain and help with weaning. Severely acidotic but improving. Likely adding to pressor requirement. GOAL is map of 65 and will wean accordingly. Will start to wean Sohail first. Ordered art line as well. 2. Heme-DIC secondary to Eclampsia, possible sepsis but white count could be stress related. Will continue to transfuse PRBC's and FFP with Cryo as needed. Follow Fibrinogen levels. Tele Heme has been consulted and note reviewed. Will give one cryo for every 6 units of PRBC's transfused. has gotten one cryo, awaiting the other to thaw out. Plts at 72K right now. Hold on further transfusion. May need to consider Factor VII if execessive bleeding continues. Will also put on broad spec abx therapy incase of possible sepsis causing DIC. Hopeful with correction of coaguloapthy she will improve. 3. Very very guarded prognosis. Will continue aggressive resuscitation. Family to come visit given exceptional case and extremely guarded prognosis. CCT 31 minutes. Subjective Date of service: 10/08/20 Principal diagnosis: Eclampsia/HELLP Syndrome, ADOLPH, DIC; s/p , s/p supracervical hyst Interval history: Patient began biting her tube yesterday and desatted. Re-intubated by RT with larger tube (7.5). Per report, clot found at end of tube. Back down to 40% FiO2. Apparently lost pulse for about 2 minutes. ROSC achieved. Likely just from hypoxemia. Remainder is negative. She is back on Fentanyl drip. Objective Vital Signs - 12hr 10/07/20 10/07/20 10/07/20 21:30 21:45 22:00 Temperature Pulse Rate 89 86 82 Pulse Rate [ From Monitor] Respiratory 23 23 22 Rate Blood Pressure 104/68 114/75 122/77 O2 Sat by Pulse 98 100 99 Oximetry 10/07/20 10/07/20 10/07/20 22:15 22:30 22:45 Temperature Pulse Rate 88 87 Pulse Rate [ From Monitor] Respiratory 17 15 17 Rate Blood Pressure 122/77 131/85 125/77 O2 Sat by Pulse 99 99 98 Oximetry 10/07/20 10/07/20 10/07/20 23:00 23:15 23:27 Temperature Pulse Rate 79 Pulse Rate [ From Monitor] Respiratory 35 H 22 24 Rate Blood Pressure 116/70 119/70 119/70 O2 Sat by Pulse 98 99 99 Oximetry 10/07/20 10/07/20 10/08/20 23:30 23:45 00:00 Temperature 98.1 F Pulse Rate 72 Pulse Rate [ 71 From Monitor] Respiratory 18 20 24 Rate Blood Pressure 109/64 109/62 110/63 O2 Sat by Pulse 98 99 99 Oximetry 10/08/20 10/08/20 10/08/20 00:15 00:30 00:33 Temperature Pulse Rate 72 71 Pulse Rate [ From Monitor] Respiratory 17 15 Rate Blood Pressure 113/64 112/66 112/66 O2 Sat by Pulse 99 99 100 Oximetry 10/08/20 10/08/20 10/08/20 00:45 01:00 01:15 Temperature Pulse Rate 71 69 68 Pulse Rate [ From Monitor] Respiratory 23 22 21 Rate Blood Pressure 126/78 122/77 120/77 O2 Sat by Pulse 100 99 100 Oximetry 10/08/20 10/08/20 10/08/20 01:30 01:45 02:00 Temperature Pulse Rate 67 67 67 Pulse Rate [ From Monitor] Respiratory 18 20 20 Rate Blood Pressure 126/78 127/82 126/83 O2 Sat by Pulse 100 100 100 Oximetry 10/08/20 10/08/20 10/08/20 02:15 02:30 02:45 Temperature Pulse Rate 77 80 77 Pulse Rate [ From Monitor] Respiratory 19 14 15 Rate Blood Pressure 126/83 149/95 143/91 O2 Sat by Pulse 100 100 99 Oximetry 10/08/20 10/08/20 10/08/20 03:00 03:15 03:30 Temperature Pulse Rate 76 75 75 Pulse Rate [ From Monitor] Respiratory 16 16 16 Rate Blood Pressure 140/88 143/87 146/83 O2 Sat by Pulse 99 99 99 Oximetry 10/08/20 10/08/20 10/08/20 03:45 04:00 04:15 Temperature 98.9 F Pulse Rate 75 74 74 Pulse Rate [ 75 From Monitor] Respiratory 18 16 19 Rate Blood Pressure 139/84 127/74 131/81 O2 Sat by Pulse 98 98 98 Oximetry 10/08/20 10/08/20 10/08/20 04:31 04:45 05:00 Temperature Pulse Rate 77 91 H 78 Pulse Rate [ From Monitor] Respiratory 16 26 H 14 Rate Blood Pressure 135/86 135/86 148/89 O2 Sat by Pulse 99 94 98 Oximetry 10/08/20 10/08/20 10/08/20 05:15 05:30 05:45 Temperature Pulse Rate 78 76 77 Pulse Rate [ From Monitor] Respiratory 14 14 15 Rate Blood Pressure 146/83 139/78 144/80 O2 Sat by Pulse 98 98 99 Oximetry 10/08/20 10/08/20 10/08/20 05:51 06:00 06:11 Temperature Pulse Rate 82 81 80 Pulse Rate [ From Monitor] Respiratory 15 16 16 Rate Blood Pressure 144/80 146/85 146/85 O2 Sat by Pulse 97 98 97 Oximetry 10/08/20 10/08/20 10/08/20 06:15 07:03 08:00 Temperature 98.6 F Pulse Rate 77 76 Pulse Rate [ From Monitor] Respiratory 15 Rate Blood Pressure 144/89 156/81 O2 Sat by Pulse 97 97 Oximetry Constitutional: comatose Eyes: non-icteric ENT: other (orally intubated and not sedated) Neck: other (large in cirumference) Ascultation: Bilateral: diminished breath sounds Percussion: Bilateral: not dull Cardiovascular: other (sinus tach) Gastrointestinal: other (post surgical changes with drain on the left side) Extremities: anasarca Neurologic: unable to assess CBC and BMP: 10/08/20 06:42 10/08/20 06:42 ABG, PT/INR, D-dimer: ABG ABG pH 7.467 (7.320-7.450) H 10/08/20 05:30 POC ABG pCO2 35.5 mmHg (32.0-48.0) 10/08/20 05:30 ABG pCO2 39.7 mm Hg 10/05/20 05:03 POC ABG pO2 189.8 mmHg (83-108) H 10/08/20 05:30 ABG pO2 74.3 mm Hg (80.0-90.0) L 10/05/20 05:03 POC ABG HCO3 25.1 10/08/20 05:30 ABG O2 Saturation 96.3 % (95.0-99.0) 10/05/20 05:03 PT/INR, D-dimer PT 13.0 Sec. (12.2-14.9) 10/05/20 05:00 INR 1.00 (0.87-1.13) 10/05/20 05:00 D-Dimer > 78244 ng/mlDDU (0-234) H 10/04/20 10:00 Abnormal lab findings: Abnormal Labs 10/02/20 10/02/20 10/02/20 12:03 12:18 12:18 WBC 14.9 H RBC Hgb 9.1 L Hct MCV MCH 22 L MCHC 28 L RDW 17.6 H Plt Count 102 L Lymph % (Auto) Lymph # (Auto) [place] # (Auto) Seg Neutrophils % Seg Neuts % (Manual) 36.0 L Lymphocytes % (Manual) 49.0 H Monocytes % (Manual) Nucleated RBC % 6.0 H Seg Neutrophils # Seg Neutrophils # Man Lymphocytes # (Manual) 7.3 H Monocytes # (Manual) PT INR APTT Fibrinogen D-Dimer ABG pH POC ABG pCO2 POC ABG pO2 ABG pO2 ABG HCO3 ABG Base Excess ABG Hemoglobin ABG Sodium ABG Chloride ABG Glucose VBG pH Oxyhemoglobin Carboxyhemoglobin Sodium 134 L Potassium Chloride Carbon Dioxide 12 L BUN 6 L Creatinine Glucose 390 H POC Glucose 451 H Lactic Acid Calcium Ionized Calcium Magnesium AST 135 H ALT 85 H Alkaline Phosphatase 172 H Lactate Dehydrogenase 641 H NT-Pro-B Natriuret Pep Total Protein 5.4 L Albumin 2.3 L Arterial Blood Glucose Arterial Blood Ionized Calcium Crossmatch 10/02/20 10/02/20 10/02/20 12:50 13:05 13:05 WBC 38.6 H RBC Hgb 8.9 L Hct 29.0 L MCV 73 L MCH 22 L MCHC RDW 17.2 H Plt Count Lymph % (Auto) Lymph # (Auto) [place] # (Auto) Seg Neutrophils % Seg Neuts % (Manual) Lymphocytes % (Manual) Monocytes % (Manual) Nucleated RBC % 2.0 H Seg Neutrophils # Seg Neutrophils # Man 20.1 H Lymphocytes # (Manual) 10.4 H Monocytes # (Manual) 2.3 H PT INR APTT Fibrinogen D-Dimer ABG pH POC ABG pCO2 POC ABG pO2 ABG pO2 ABG HCO3 ABG Base Excess ABG Hemoglobin ABG Sodium ABG Chloride ABG Glucose VBG pH Oxyhemoglobin Carboxyhemoglobin Sodium Potassium Chloride Carbon Dioxide BUN Creatinine Glucose POC Glucose Lactic Acid Calcium Ionized Calcium Magnesium AST 184 H ALT 113 H Alkaline Phosphatase Lactate Dehydrogenase 769 H NT-Pro-B Natriuret Pep Total Protein Albumin Arterial Blood Glucose Arterial Blood Ionized Calcium Crossmatch See Detail 10/02/20 10/02/20 10/02/20 16:25 16:35 16:35 WBC RBC Hgb Hct MCV MCH MCHC RDW Plt Count Lymph % (Auto) Lymph # (Auto) [place] # (Auto) Seg Neutrophils % Seg Neuts % (Manual) Lymphocytes % (Manual) Monocytes % (Manual) Nucleated RBC % Seg Neutrophils # Seg Neutrophils # Man Lymphocytes # (Manual) Monocytes # (Manual) PT INR APTT Fibrinogen D-Dimer ABG pH 7.031 L* POC ABG pCO2 POC ABG pO2 ABG pO2 116.8 H ABG HCO3 12.7 L ABG Base Excess -16.9 L ABG Hemoglobin 7.8 L ABG Sodium ABG Chloride ABG Glucose VBG pH Oxyhemoglobin 94.9 L Carboxyhemoglobin Sodium Potassium Chloride Carbon Dioxide BUN Creatinine Glucose 403 H POC Glucose Lactic Acid 11.40 H* Calcium 6.3 L D Ionized Calcium Magnesium AST 70 H ALT Alkaline Phosphatase Lactate Dehydrogenase NT-Pro-B Natriuret Pep Total Protein 1.9 L D Albumin 1.2 L Arterial Blood Glucose Arterial Blood Ionized Calcium Crossmatch 10/02/20 10/02/20 10/02/20 18:18 18:18 22:30 WBC 11.5 H RBC 2.06 L Hgb 5.5 L* D Hct 17.3 L* D MCV MCH 27 L MCHC RDW 19.5 H Plt Count 60 L Lymph % (Auto) Lymph # (Auto) [place] # (Auto) Seg Neutrophils % Seg Neuts % (Manual) Lymphocytes % (Manual) 8.0 L Monocytes % (Manual) 8.0 H Nucleated RBC % 8.0 H Seg Neutrophils # Seg Neutrophils # Man Lymphocytes # (Manual) 0.9 L Monocytes # (Manual) 0.9 H PT 37.1 H INR 3.71 H APTT 135.8 H* Fibrinogen D-Dimer ABG pH 7.067 L* POC ABG pCO2 POC ABG pO2 ABG pO2 183.0 H ABG HCO3 14.1 L ABG Base Excess -15.1 L ABG Hemoglobin 7.7 L ABG Sodium ABG Chloride ABG Glucose VBG pH Oxyhemoglobin Carboxyhemoglobin Sodium Potassium Chloride Carbon Dioxide BUN Creatinine Glucose POC Glucose Lactic Acid Calcium Ionized Calcium Magnesium AST ALT Alkaline Phosphatase Lactate Dehydrogenase NT-Pro-B Natriuret Pep Total Protein Albumin Arterial Blood Glucose Arterial Blood Ionized Calcium Crossmatch 10/02/20 10/02/20 10/03/20 Unknown Unknown 00:01 WBC RBC Hgb Hct MCV MCH MCHC RDW Plt Count Lymph % (Auto) Lymph # (Auto) [place] # (Auto) Seg Neutrophils % Seg Neuts % (Manual) Lymphocytes % (Manual) Monocytes % (Manual) Nucleated RBC % Seg Neutrophils # Seg Neutrophils # Man Lymphocytes # (Manual) Monocytes # (Manual) PT 61.1 H INR 6.92 H* APTT 158.7 H* Fibrinogen < 60 L* D-Dimer > 00343 H ABG pH POC ABG pCO2 POC ABG pO2 ABG pO2 ABG HCO3 ABG Base Excess ABG Hemoglobin ABG Sodium ABG Chloride ABG Glucose VBG pH 6.949 L* Oxyhemoglobin Carboxyhemoglobin Sodium Potassium Chloride Carbon Dioxide BUN Creatinine Glucose POC Glucose 196 H Lactic Acid Calcium Ionized Calcium Magnesium AST ALT Alkaline Phosphatase Lactate Dehydrogenase NT-Pro-B Natriuret Pep Total Protein Albumin Arterial Blood Glucose Arterial Blood Ionized Calcium Crossmatch 10/03/20 10/03/20 10/03/20 00:40 00:40 00:40 WBC RBC Hgb Hct MCV MCH MCHC RDW Plt Count Lymph % (Auto) Lymph # (Auto) [place] # (Auto) Seg Neutrophils % Seg Neuts % (Manual) Lymphocytes % (Manual) Monocytes % (Manual) Nucleated RBC % Seg Neutrophils # Seg Neutrophils # Man Lymphocytes # (Manual) Monocytes # (Manual) PT 15.1 H INR 1.21 H APTT Fibrinogen D-Dimer ABG pH POC ABG pCO2 POC ABG pO2 ABG pO2 ABG HCO3 ABG Base Excess ABG Hemoglobin ABG Sodium ABG Chloride ABG Glucose VBG pH Oxyhemoglobin Carboxyhemoglobin Sodium 136 L Potassium Chloride Carbon Dioxide BUN Creatinine 1.6 H D Glucose 106 H POC Glucose Lactic Acid 5.60 H* Calcium 6.5 L Ionized Calcium Magnesium AST 232 H ALT 104 H Alkaline Phosphatase Lactate Dehydrogenase NT-Pro-B Natriuret Pep Total Protein 3.9 L D Albumin 2.4 L Arterial Blood Glucose Arterial Blood Ionized Calcium Crossmatch 10/03/20 10/03/20 10/03/20 02:08 02:08 02:08 WBC 17.6 H RBC 3.27 L Hgb 9.9 L D Hct 29.9 L D MCV MCH MCHC RDW 16.5 H Plt Count 75 L Lymph % (Auto) Lymph # (Auto) [place] # (Auto) Seg Neutrophils % Seg Neuts % (Manual) 76.0 H Lymphocytes % (Manual) Monocytes % (Manual) Nucleated RBC % 8.0 H Seg Neutrophils # Seg Neutrophils # Man 13.4 H Lymphocytes # (Manual) Monocytes # (Manual) PT INR APTT Fibrinogen D-Dimer ABG pH POC ABG pCO2 POC ABG pO2 ABG pO2 ABG HCO3 ABG Base Excess ABG Hemoglobin ABG Sodium ABG Chloride ABG Glucose VBG pH Oxyhemoglobin Carboxyhemoglobin Sodium Potassium Chloride Carbon Dioxide 19 L BUN Creatinine 1.4 H Glucose 306 H POC Glucose Lactic Acid 10.50 H* Calcium 6.4 L Ionized Calcium Magnesium AST ALT Alkaline Phosphatase Lactate Dehydrogenase NT-Pro-B Natriuret Pep Total Protein Albumin Arterial Blood Glucose Arterial Blood Ionized Calcium Crossmatch 10/03/20 10/03/20 10/03/20 02:42 03:59 05:31 WBC RBC Hgb Hct MCV MCH MCHC RDW Plt Count Lymph % (Auto) Lymph # (Auto) [place] # (Auto) Seg Neutrophils % Seg Neuts % (Manual) Lymphocytes % (Manual) Monocytes % (Manual) Nucleated RBC % Seg Neutrophils # Seg Neutrophils # Man Lymphocytes # (Manual) Monocytes # (Manual) PT INR APTT Fibrinogen D-Dimer ABG pH 7.144 L POC ABG pCO2 54.4 H POC ABG pO2 ABG pO2 ABG HCO3 ABG Base Excess ABG Hemoglobin 10.0 L ABG Sodium ABG Chloride 108.0 H ABG Glucose 306 H VBG pH Oxyhemoglobin Carboxyhemoglobin Sodium Potassium Chloride Carbon Dioxide BUN Creatinine Glucose POC Glucose 209 H Lactic Acid 9.20 H* Calcium Ionized Calcium Magnesium AST ALT Alkaline Phosphatase Lactate Dehydrogenase NT-Pro-B Natriuret Pep Total Protein Albumin Arterial Blood Glucose 306 H Arterial Blood Ionized Calcium 3.7 L Crossmatch 10/03/20 10/03/20 10/03/20 09:00 09:00 09:00 WBC 27.4 H RBC 2.84 L Hgb 8.5 L Hct 25.1 L MCV MCH MCHC RDW 16.1 H Plt Count 72 L Lymph % (Auto) Lymph # (Auto) [place] # (Auto) Seg Neutrophils % Seg Neuts % (Manual) Lymphocytes % (Manual) 11.0 L Monocytes % (Manual) Nucleated RBC % 3.0 H Seg Neutrophils # Seg Neutrophils # Man 18.4 H Lymphocytes # (Manual) Monocytes # (Manual) 1.9 H PT INR APTT Fibrinogen D-Dimer ABG pH POC ABG pCO2 POC ABG pO2 ABG pO2 ABG HCO3 ABG Base Excess ABG Hemoglobin ABG Sodium ABG Chloride ABG Glucose VBG pH Oxyhemoglobin Carboxyhemoglobin Sodium Potassium Chloride Carbon Dioxide BUN Creatinine 1.7 H Glucose 216 H POC Glucose Lactic Acid 9.20 H* Calcium 6.3 L Ionized Calcium Magnesium AST 331 H ALT 171 H Alkaline Phosphatase Lactate Dehydrogenase NT-Pro-B Natriuret Pep Total Protein 3.7 L Albumin 1.9 L Arterial Blood Glucose Arterial Blood Ionized Calcium Crossmatch 10/03/20 10/03/20 10/03/20 11:20 11:46 11:50 WBC 28.7 H RBC 2.67 L Hgb 8.0 L Hct 23.7 L MCV MCH MCHC RDW 16.6 H Plt Count 76 L Lymph % (Auto) Lymph # (Auto) [place] # (Auto) Seg Neutrophils % Seg Neuts % (Manual) Lymphocytes % (Manual) Monocytes % (Manual) Nucleated RBC % Seg Neutrophils # Seg Neutrophils # Man Lymphocytes # (Manual) Monocytes # (Manual) PT INR APTT Fibrinogen D-Dimer ABG pH POC ABG pCO2 POC ABG pO2 ABG pO2 ABG HCO3 ABG Base Excess ABG Hemoglobin ABG Sodium ABG Chloride ABG Glucose VBG pH Oxyhemoglobin Carboxyhemoglobin Sodium Potassium Chloride Carbon Dioxide BUN Creatinine Glucose POC Glucose 125 H Lactic Acid 8.00 H* Calcium Ionized Calcium Magnesium AST ALT Alkaline Phosphatase Lactate Dehydrogenase NT-Pro-B Natriuret Pep Total Protein Albumin Arterial Blood Glucose Arterial Blood Ionized Calcium Crossmatch 10/03/20 10/04/20 10/04/20 11:50 00:40 00:40 WBC RBC Hgb 6.8 L Hct 19.4 L* MCV MCH MCHC RDW Plt Count 49 L Lymph % (Auto) Lymph # (Auto) [place] # (Auto) Seg Neutrophils % Seg Neuts % (Manual) Lymphocytes % (Manual) Monocytes % (Manual) Nucleated RBC % Seg Neutrophils # Seg Neutrophils # Man Lymphocytes # (Manual) Monocytes # (Manual) PT INR APTT Fibrinogen D-Dimer ABG pH 7.244 L POC ABG pCO2 POC ABG pO2 ABG pO2 ABG HCO3 ABG Base Excess -4.5 L ABG Hemoglobin 7.3 L ABG Sodium ABG Chloride ABG Glucose VBG pH Oxyhemoglobin Carboxyhemoglobin Sodium Potassium Chloride Carbon Dioxide BUN Creatinine Glucose POC Glucose Lactic Acid Calcium Ionized Calcium Magnesium AST ALT Alkaline Phosphatase Lactate Dehydrogenase NT-Pro-B Natriuret Pep Total Protein Albumin Arterial Blood Glucose Arterial Blood Ionized Calcium Crossmatch 10/04/20 10/04/20 10/04/20 03:53 10:00 10:00 WBC 14.6 H RBC 2.57 L Hgb 7.6 L Hct 22.5 L MCV MCH MCHC RDW 15.8 H Plt Count 38 L Lymph % (Auto) 7.7 L Lymph # (Auto) 1.1 L [place] # (Auto) 0.9 H Seg Neutrophils % 85.6 H Seg Neuts % (Manual) Lymphocytes % (Manual) Monocytes % (Manual) Nucleated RBC % Seg Neutrophils # 12.5 H Seg Neutrophils # Man Lymphocytes # (Manual) Monocytes # (Manual) PT INR APTT Fibrinogen D-Dimer ABG pH POC ABG pCO2 POC ABG pO2 110.6 H ABG pO2 ABG HCO3 ABG Base Excess ABG Hemoglobin 6.7 L ABG Sodium 132.0 L ABG Chloride ABG Glucose 111 H VBG pH Oxyhemoglobin Carboxyhemoglobin Sodium 134 L D Potassium Chloride 97.6 L Carbon Dioxide BUN Creatinine 1.7 H Glucose POC Glucose Lactic Acid Calcium 6.3 L Ionized Calcium Magnesium AST 203 H ALT 81 H Alkaline Phosphatase Lactate Dehydrogenase NT-Pro-B Natriuret Pep Total Protein 3.9 L Albumin 2.3 L Arterial Blood Glucose 111 H Arterial Blood Ionized Calcium 3.5 L Crossmatch 10/04/20 10/04/20 10/04/20 10:00 10:00 10:14 WBC RBC Hgb Hct MCV MCH MCHC RDW Plt Count Lymph % (Auto) Lymph # (Auto) [place] # (Auto) Seg Neutrophils % Seg Neuts % (Manual) Lymphocytes % (Manual) Monocytes % (Manual) Nucleated RBC % Seg Neutrophils # Seg Neutrophils # Man Lymphocytes # (Manual) Monocytes # (Manual) PT INR APTT Fibrinogen D-Dimer > 14342 H ABG pH POC ABG pCO2 POC ABG pO2 ABG pO2 ABG HCO3 ABG Base Excess ABG Hemoglobin ABG Sodium ABG Chloride ABG Glucose VBG pH Oxyhemoglobin Carboxyhemoglobin Sodium Potassium Chloride Carbon Dioxide BUN Creatinine Glucose POC Glucose Lactic Acid 3.90 H* Calcium Ionized Calcium Magnesium AST ALT Alkaline Phosphatase Lactate Dehydrogenase NT-Pro-B Natriuret Pep 2788 H Total Protein Albumin Arterial Blood Glucose Arterial Blood Ionized Calcium Crossmatch 10/04/20 10/04/20 10/04/20 14:00 14:00 18:00 WBC 15.7 H RBC 3.17 L Hgb 9.3 L 9.6 L Hct 27.2 L 28.0 L MCV MCH MCHC RDW 16.9 H Plt Count 41 L Lymph % (Auto) 8.6 L Lymph # (Auto) [place] # (Auto) 0.9 H Seg Neutrophils % 85.4 H Seg Neuts % (Manual) Lymphocytes % (Manual) Monocytes % (Manual) Nucleated RBC % Seg Neutrophils # 13.4 H Seg Neutrophils # Man Lymphocytes # (Manual) Monocytes # (Manual) PT INR APTT Fibrinogen D-Dimer ABG pH POC ABG pCO2 POC ABG pO2 ABG pO2 ABG HCO3 ABG Base Excess ABG Hemoglobin ABG Sodium ABG Chloride ABG Glucose VBG pH Oxyhemoglobin Carboxyhemoglobin Sodium 133 L Potassium Chloride 96.4 L Carbon Dioxide BUN 18 H Creatinine 1.7 H Glucose POC Glucose Lactic Acid Calcium 6.3 L Ionized Calcium Magnesium AST ALT Alkaline Phosphatase Lactate Dehydrogenase NT-Pro-B Natriuret Pep Total Protein Albumin Arterial Blood Glucose Arterial Blood Ionized Calcium Crossmatch 10/04/20 10/04/20 10/05/20 18:00 22:00 05:00 WBC 17.6 H RBC 3.34 L Hgb 9.9 L Hct 29.4 L MCV MCH MCHC RDW 17.1 H Plt Count 56 L Lymph % (Auto) 8.5 L Lymph # (Auto) [place] # (Auto) 1.0 H Seg Neutrophils % 85.1 H Seg Neuts % (Manual) Lymphocytes % (Manual) Monocytes % (Manual) Nucleated RBC % Seg Neutrophils # 15.0 H Seg Neutrophils # Man Lymphocytes # (Manual) Monocytes # (Manual) PT INR APTT Fibrinogen D-Dimer ABG pH POC ABG pCO2 POC ABG pO2 ABG pO2 ABG HCO3 ABG Base Excess ABG Hemoglobin ABG Sodium ABG Chloride ABG Glucose VBG pH Oxyhemoglobin Carboxyhemoglobin Sodium 136 L Potassium Chloride Carbon Dioxide BUN 18 H Creatinine 1.7 H Glucose POC Glucose Lactic Acid 2.30 H* Calcium 6.6 L Ionized Calcium Magnesium AST ALT Alkaline Phosphatase Lactate Dehydrogenase NT-Pro-B Natriuret Pep Total Protein Albumin Arterial Blood Glucose Arterial Blood Ionized Calcium Crossmatch 10/05/20 10/05/20 10/05/20 05:00 05:00 05:03 WBC RBC Hgb Hct MCV MCH MCHC RDW Plt Count Lymph % (Auto) Lymph # (Auto) [place] # (Auto) Seg Neutrophils % Seg Neuts % (Manual) Lymphocytes % (Manual) Monocytes % (Manual) Nucleated RBC % Seg Neutrophils # Seg Neutrophils # Man Lymphocytes # (Manual) Monocytes # (Manual) PT INR APTT Fibrinogen D-Dimer ABG pH 7.458 H POC ABG pCO2 POC ABG pO2 ABG pO2 74.3 L ABG HCO3 27.5 H ABG Base Excess 3.4 H ABG Hemoglobin 10.0 L ABG Sodium ABG Chloride ABG Glucose VBG pH Oxyhemoglobin 94.9 L Carboxyhemoglobin Sodium Potassium Chloride Carbon Dioxide BUN 19 H Creatinine 1.8 H Glucose POC Glucose Lactic Acid Calcium 6.8 L Ionized Calcium 3.9 L Magnesium AST 225 H ALT 85 H Alkaline Phosphatase Lactate Dehydrogenase NT-Pro-B Natriuret Pep Total Protein 4.5 L Albumin 2.7 L Arterial Blood Glucose Arterial Blood Ionized Calcium Crossmatch 10/05/20 10/05/20 10/05/20 10:10 15:00 19:40 WBC RBC Hgb Hct MCV MCH MCHC RDW Plt Count Lymph % (Auto) Lymph # (Auto) [place] # (Auto) Seg Neutrophils % Seg Neuts % (Manual) Lymphocytes % (Manual) Monocytes % (Manual) Nucleated RBC % Seg Neutrophils # Seg Neutrophils # Man Lymphocytes # (Manual) Monocytes # (Manual) PT INR APTT Fibrinogen D-Dimer ABG pH POC ABG pCO2 POC ABG pO2 ABG pO2 ABG HCO3 ABG Base Excess ABG Hemoglobin ABG Sodium ABG Chloride ABG Glucose VBG pH Oxyhemoglobin Carboxyhemoglobin Sodium Potassium 3.5 L Chloride Carbon Dioxide 31 H 32 H BUN 19 H 19 H Creatinine 1.8 H 1.8 H Glucose POC Glucose Lactic Acid Calcium 7.0 L 7.2 L Ionized Calcium Magnesium 2.90 H AST ALT Alkaline Phosphatase Lactate Dehydrogenase NT-Pro-B Natriuret Pep Total Protein Albumin Arterial Blood Glucose Arterial Blood Ionized Calcium Crossmatch 10/06/20 10/06/20 10/06/20 01:05 03:12 04:00 WBC 17.1 H RBC 3.47 L Hgb Hct MCV MCH MCHC RDW 17.4 H Plt Count 82 L Lymph % (Auto) 8.3 L Lymph # (Auto) [place] # (Auto) 1.1 H Seg Neutrophils % 83.8 H Seg Neuts % (Manual) Lymphocytes % (Manual) Monocytes % (Manual) Nucleated RBC % Seg Neutrophils # 14.3 H Seg Neutrophils # Man Lymphocytes # (Manual) Monocytes # (Manual) PT INR APTT Fibrinogen D-Dimer ABG pH 7.474 H POC ABG pCO2 POC ABG pO2 129.5 H ABG pO2 ABG HCO3 ABG Base Excess ABG Hemoglobin 11.4 L ABG Sodium 131.8 L ABG Chloride ABG Glucose 103 H VBG pH Oxyhemoglobin Carboxyhemoglobin 0.3 L Sodium Potassium Chloride Carbon Dioxide BUN Creatinine Glucose POC Glucose Lactic Acid Calcium Ionized Calcium Magnesium 3.70 H AST ALT Alkaline Phosphatase Lactate Dehydrogenase NT-Pro-B Natriuret Pep Total Protein Albumin Arterial Blood Glucose 103 H Arterial Blood Ionized Calcium 4.2 L Crossmatch 10/06/20 10/06/20 10/06/20 04:00 05:31 08:12 WBC RBC Hgb Hct MCV MCH MCHC RDW Plt Count Lymph % (Auto) Lymph # (Auto) [place] # (Auto) Seg Neutrophils % Seg Neuts % (Manual) Lymphocytes % (Manual) Monocytes % (Manual) Nucleated RBC % Seg Neutrophils # Seg Neutrophils # Man Lymphocytes # (Manual) Monocytes # (Manual) PT INR APTT Fibrinogen D-Dimer ABG pH POC ABG pCO2 POC ABG pO2 ABG pO2 ABG HCO3 ABG Base Excess ABG Hemoglobin ABG Sodium ABG Chloride ABG Glucose VBG pH Oxyhemoglobin Carboxyhemoglobin Sodium Potassium 3.5 L Chloride Carbon Dioxide BUN 19 H Creatinine 1.8 H Glucose 102 H POC Glucose 116 H Lactic Acid Calcium 7.2 L Ionized Calcium Magnesium 5.40 H AST 307 H ALT 137 H Alkaline Phosphatase Lactate Dehydrogenase NT-Pro-B Natriuret Pep Total Protein 4.5 L Albumin 2.6 L Arterial Blood Glucose Arterial Blood Ionized Calcium Crossmatch 10/06/20 10/06/20 10/06/20 11:00 11:50 20:13 WBC RBC Hgb Hct MCV MCH MCHC RDW Plt Count Lymph % (Auto) Lymph # (Auto) [place] # (Auto) Seg Neutrophils % Seg Neuts % (Manual) Lymphocytes % (Manual) Monocytes % (Manual) Nucleated RBC % Seg Neutrophils # Seg Neutrophils # Man Lymphocytes # (Manual) Monocytes # (Manual) PT INR APTT Fibrinogen D-Dimer ABG pH POC ABG pCO2 POC ABG pO2 ABG pO2 ABG HCO3 ABG Base Excess ABG Hemoglobin ABG Sodium ABG Chloride ABG Glucose VBG pH Oxyhemoglobin Carboxyhemoglobin Sodium Potassium Chloride Carbon Dioxide BUN Creatinine Glucose POC Glucose 106 H Lactic Acid Calcium Ionized Calcium Magnesium 6.50 H 6.20 H AST ALT Alkaline Phosphatase Lactate Dehydrogenase NT-Pro-B Natriuret Pep Total Protein Albumin Arterial Blood Glucose Arterial Blood Ionized Calcium Crossmatch 10/06/20 10/06/20 10/06/20 20:17 22:29 23:57 WBC RBC Hgb Hct MCV MCH MCHC RDW Plt Count Lymph % (Auto) Lymph # (Auto) [place] # (Auto) Seg Neutrophils % Seg Neuts % (Manual) Lymphocytes % (Manual) Monocytes % (Manual) Nucleated RBC % Seg Neutrophils # Seg Neutrophils # Man Lymphocytes # (Manual) Monocytes # (Manual) PT INR APTT Fibrinogen D-Dimer ABG pH POC ABG pCO2 POC ABG pO2 ABG pO2 ABG HCO3 ABG Base Excess ABG Hemoglobin ABG Sodium ABG Chloride ABG Glucose VBG pH Oxyhemoglobin Carboxyhemoglobin Sodium Potassium Chloride Carbon Dioxide BUN Creatinine Glucose POC Glucose 112 H 126 H 133 H Lactic Acid Calcium Ionized Calcium Magnesium AST ALT Alkaline Phosphatase Lactate Dehydrogenase NT-Pro-B Natriuret Pep Total Protein Albumin Arterial Blood Glucose Arterial Blood Ionized Calcium Crossmatch 10/07/20 10/07/20 10/07/20 00:35 02:22 03:16 WBC RBC Hgb Hct MCV MCH MCHC RDW Plt Count Lymph % (Auto) Lymph # (Auto) [place] # (Auto) Seg Neutrophils % Seg Neuts % (Manual) Lymphocytes % (Manual) Monocytes % (Manual) Nucleated RBC % Seg Neutrophils # Seg Neutrophils # Man Lymphocytes # (Manual) Monocytes # (Manual) PT INR APTT Fibrinogen D-Dimer ABG pH POC ABG pCO2 POC ABG pO2 ABG pO2 ABG HCO3 ABG Base Excess ABG Hemoglobin 11.6 L ABG Sodium ABG Chloride ABG Glucose 156 H VBG pH Oxyhemoglobin Carboxyhemoglobin 0.3 L Sodium Potassium Chloride Carbon Dioxide BUN Creatinine Glucose POC Glucose 124 H Lactic Acid Calcium Ionized Calcium Magnesium 5.90 H AST ALT Alkaline Phosphatase Lactate Dehydrogenase NT-Pro-B Natriuret Pep Total Protein Albumin Arterial Blood Glucose 156 H Arterial Blood Ionized Calcium 4.2 L Crossmatch 10/07/20 10/07/20 10/07/20 04:06 05:45 07:05 WBC 19.2 H RBC 3.57 L Hgb Hct MCV MCH MCHC 35 H RDW 17.1 H Plt Count 129 L Lymph % (Auto) Lymph # (Auto) [place] # (Auto) Seg Neutrophils % Seg Neuts % (Manual) 94.0 H Lymphocytes % (Manual) 6.0 L Monocytes % (Manual) Nucleated RBC % Seg Neutrophils # Seg Neutrophils # Man 18.0 H Lymphocytes # (Manual) Monocytes # (Manual) PT INR APTT Fibrinogen D-Dimer ABG pH POC ABG pCO2 POC ABG pO2 ABG pO2 ABG HCO3 ABG Base Excess ABG Hemoglobin ABG Sodium ABG Chloride ABG Glucose VBG pH Oxyhemoglobin Carboxyhemoglobin Sodium Potassium Chloride Carbon Dioxide BUN Creatinine Glucose POC Glucose 135 H 149 H Lactic Acid Calcium Ionized Calcium Magnesium AST ALT Alkaline Phosphatase Lactate Dehydrogenase NT-Pro-B Natriuret Pep Total Protein Albumin Arterial Blood Glucose Arterial Blood Ionized Calcium Crossmatch 10/07/20 10/07/20 10/07/20 07:05 07:05 12:21 WBC RBC Hgb Hct MCV MCH MCHC RDW Plt Count Lymph % (Auto) Lymph # (Auto) [place] # (Auto) Seg Neutrophils % Seg Neuts % (Manual) Lymphocytes % (Manual) Monocytes % (Manual) Nucleated RBC % Seg Neutrophils # Seg Neutrophils # Man Lymphocytes # (Manual) Monocytes # (Manual) PT INR APTT Fibrinogen D-Dimer ABG pH POC ABG pCO2 POC ABG pO2 ABG pO2 ABG HCO3 ABG Base Excess ABG Hemoglobin ABG Sodium ABG Chloride ABG Glucose VBG pH Oxyhemoglobin Carboxyhemoglobin Sodium Potassium Chloride Carbon Dioxide BUN 21 H Creatinine 1.7 H Glucose 171 H POC Glucose 124 H Lactic Acid Calcium 7.4 L Ionized Calcium Magnesium 6.10 H AST 245 H ALT 147 H Alkaline Phosphatase Lactate Dehydrogenase NT-Pro-B Natriuret Pep Total Protein 5.3 L Albumin 2.8 L Arterial Blood Glucose Arterial Blood Ionized Calcium Crossmatch 10/07/20 10/07/20 10/07/20 19:52 21:50 23:41 WBC RBC Hgb Hct MCV MCH MCHC RDW Plt Count Lymph % (Auto) Lymph # (Auto) [place] # (Auto) Seg Neutrophils % Seg Neuts % (Manual) Lymphocytes % (Manual) Monocytes % (Manual) Nucleated RBC % Seg Neutrophils # Seg Neutrophils # Man Lymphocytes # (Manual) Monocytes # (Manual) PT INR APTT Fibrinogen D-Dimer ABG pH POC ABG pCO2 POC ABG pO2 ABG pO2 ABG HCO3 ABG Base Excess ABG Hemoglobin ABG Sodium ABG Chloride ABG Glucose VBG pH Oxyhemoglobin Carboxyhemoglobin Sodium Potassium Chloride Carbon Dioxide BUN Creatinine Glucose POC Glucose 193 H 138 H 118 H Lactic Acid Calcium Ionized Calcium Magnesium AST ALT Alkaline Phosphatase Lactate Dehydrogenase NT-Pro-B Natriuret Pep Total Protein Albumin Arterial Blood Glucose Arterial Blood Ionized Calcium Crossmatch 10/08/20 10/08/20 10/08/20 04:20 05:30 05:43 WBC RBC Hgb Hct MCV MCH MCHC RDW Plt Count Lymph % (Auto) Lymph # (Auto) [place] # (Auto) Seg Neutrophils % Seg Neuts % (Manual) Lymphocytes % (Manual) Monocytes % (Manual) Nucleated RBC % Seg Neutrophils # Seg Neutrophils # Man Lymphocytes # (Manual) Monocytes # (Manual) PT INR APTT Fibrinogen D-Dimer ABG pH 7.467 H POC ABG pCO2 POC ABG pO2 189.8 H ABG pO2 ABG HCO3 ABG Base Excess ABG Hemoglobin 10.8 L ABG Sodium ABG Chloride ABG Glucose 133 H VBG pH Oxyhemoglobin Carboxyhemoglobin Sodium Potassium Chloride Carbon Dioxide BUN Creatinine Glucose POC Glucose 114 H 126 H Lactic Acid Calcium Ionized Calcium Magnesium AST ALT Alkaline Phosphatase Lactate Dehydrogenase NT-Pro-B Natriuret Pep Total Protein Albumin Arterial Blood Glucose 133 H Arterial Blood Ionized Calcium 4.2 L Crossmatch 10/08/20 10/08/20 06:42 06:42 WBC 23.6 H RBC 3.54 L Hgb Hct MCV MCH MCHC RDW 17.8 H Plt Count Lymph % (Auto) Lymph # (Auto) [place] # (Auto) Seg Neutrophils % Seg Neuts % (Manual) Lymphocytes % (Manual) Monocytes % (Manual) Nucleated RBC % Seg Neutrophils # Seg Neutrophils # Man Lymphocytes # (Manual) Monocytes # (Manual) PT INR APTT Fibrinogen D-Dimer ABG pH POC ABG pCO2 POC ABG pO2 ABG pO2 ABG HCO3 ABG Base Excess ABG Hemoglobin ABG Sodium ABG Chloride ABG Glucose VBG pH Oxyhemoglobin Carboxyhemoglobin Sodium Potassium Chloride Carbon Dioxide BUN 28 H Creatinine 1.6 H Glucose 141 H POC Glucose Lactic Acid Calcium 7.6 L Ionized Calcium Magnesium AST 162 H ALT 103 H Alkaline Phosphatase Lactate Dehydrogenase NT-Pro-B Natriuret Pep Total Protein 5.4 L Albumin 2.7 L Arterial Blood Glucose Arterial Blood Ionized Calcium Crossmatch
[2020-10-08] MEDS: methylPREDNISolone Sod Succinate 125 MG/2 ML INJ IV SCH (10:32)
[2020-10-08] MEDS: TOPIRAMATE TAB 25 MG TAB PO SCH ×2 (10:33→21:58)
[2020-10-08] MEDS: FAMOTIDINE 20 MG TAB PO SCH ×2 (10:33→21:59)
[2020-10-08] MEDS: busPIRone 5 MG TAB PO SCH ×2 (10:34→21:59)
--- NOTE | 2020-10-08 11:49 | Progress Note ---
Assessment and Plan Cultures: Blood culture: no growth A/P: 30-year-old female with GERD, hypertension, seizure disorder was admitted to the hospital at 36 weeks with seizures. She became hypoxic and pulseless requiring CPR. Following emergent section, patient developed hemorrhage, DIC. She has been admitted to ICU, remains on the vent: #Shock, DIC, hemorrhage: ?possible sepsis. Possible pneumonia versus fluid overload. #Acute kidney injury: renally dose abx. Creatinine relatively stable. #Acute respiratory failure: remains on the vent. #Transaminitis: ?HELLP #Preeclampsia Recs: Continue with IV cefepime, renally adjusted, D4 of 5 leucocytosis is probably from steroids and reactive secondary to respiratory arrest requiring resuscitation on 10/07/2020 Venancio Craven MD, FACP [facility] ([facility] O: [phone] F: [phone] Subjective Date of service: 10/08/20 Principal diagnosis: Eclampsia/HELLP Syndrome, ADOLPH, DIC; s/p , s/p supracervical hyst Interval history: No fever. Apparently had a brief code due to ?ET tube clot/plugging. Objective - Exam Narrative Exam: Physical Exam: Constitutional: sedated, intubated, on the vent Head, Ears, Nose: Normocephalic, atraumatic. External ears, nose normal Eyes: Conjunctivae/corneas clear. No icterus. No ptosis. Neck: intubated Oral: intubated Cardiovascular: S1, S2 + Respiratory: AE fair bilaterally and equal GI: Soft, bowel sounds hypoactive, drain present, lower abdominal incision present with dressing, right subclavian central line present Musculoskeletal: No pedal edema, no cyanosis. Skin: No rash or abscess Hem/Lymphatic: No palpable cervical or supraclavicular nodes. No lymphangitis Psych: no agitation Neurological: sedated, intubated, on the vent, exam limited - Constitutional Vitals: Vital Signs Temp Pulse Resp BP Pulse Ox 98.6 F 75 11 L 116/70 98 10/08/20 08:00 10/08/20 10:33 10/08/20 10:15 10/08/20 10:33 10/08/20 10:15 Temperature -Last 24 Hours Temperature 98.6 F Temperature 98.9 F Temperature 98.1 F Temperature 98.3 F Temperature 98.5 F - Labs CBC & Chem 7: 10/08/20 06:42 10/08/20 06:42 Labs: Abnormal lab results 10/05/20 10/07/20 10/07/20 Range/Units 05:00 07:05 12:21 WBC (4.5-11.0) K/mm3 RBC (3.65-5.03) M/mm3 RDW (13.2-15.2) % Seg Neuts % (Manual) 94.0 H (40.0-70.0) % Lymphocytes % (Manual) 6.0 L (13.4-35.0) % Seg Neutrophils # Man 18.0 H (1.8-7.7) K/mm3 ABG pH (7.320-7.450) POC ABG pO2 (83-108) mmHg ABG Hemoglobin (12.0-17.5) ABG Glucose (65-95) mg/dL BUN (7-17) mg/dL Creatinine (0.6-1.2) mg/dL Glucose (65-100) mg/dL POC Glucose 124 H (70-105) mg/dL Calcium (8.4-10.2) mg/dL Ionized Calcium 3.9 L (4.8-5.6) mg/dL AST (5-40) units/L ALT (7-56) units/L Total Protein (6.3-8.2) g/dL Albumin (3.9-5) g/dL Arterial Blood Glucose (65-95) mg/dL Arterial Blood Ionized Calcium (4.6-5.3) mg/dL 10/07/20 10/07/20 10/07/20 Range/Units 19:52 21:50 23:41 WBC (4.5-11.0) K/mm3 RBC (3.65-5.03) M/mm3 RDW (13.2-15.2) % Seg Neuts % (Manual) (40.0-70.0) % Lymphocytes % (Manual) (13.4-35.0) % Seg Neutrophils # Man (1.8-7.7) K/mm3 ABG pH (7.320-7.450) POC ABG pO2 (83-108) mmHg ABG Hemoglobin (12.0-17.5) ABG Glucose (65-95) mg/dL BUN (7-17) mg/dL Creatinine (0.6-1.2) mg/dL Glucose (65-100) mg/dL POC Glucose 193 H 138 H 118 H (70-105) mg/dL Calcium (8.4-10.2) mg/dL Ionized Calcium (4.8-5.6) mg/dL AST (5-40) units/L ALT (7-56) units/L Total Protein (6.3-8.2) g/dL Albumin (3.9-5) g/dL Arterial Blood Glucose (65-95) mg/dL Arterial Blood Ionized Calcium (4.6-5.3) mg/dL 10/08/20 10/08/20 10/08/20 Range/Units 04:20 05:30 05:43 WBC (4.5-11.0) K/mm3 RBC (3.65-5.03) M/mm3 RDW (13.2-15.2) % Seg Neuts % (Manual) (40.0-70.0) % Lymphocytes % (Manual) (13.4-35.0) % Seg Neutrophils # Man (1.8-7.7) K/mm3 ABG pH 7.467 H (7.320-7.450) POC ABG pO2 189.8 H (83-108) mmHg ABG Hemoglobin 10.8 L (12.0-17.5) ABG Glucose 133 H (65-95) mg/dL BUN (7-17) mg/dL Creatinine (0.6-1.2) mg/dL Glucose (65-100) mg/dL POC Glucose 114 H 126 H (70-105) mg/dL Calcium (8.4-10.2) mg/dL Ionized Calcium (4.8-5.6) mg/dL AST (5-40) units/L ALT (7-56) units/L Total Protein (6.3-8.2) g/dL Albumin (3.9-5) g/dL Arterial Blood Glucose 133 H (65-95) mg/dL Arterial Blood Ionized Calcium 4.2 L (4.6-5.3) mg/dL 10/08/20 10/08/20 10/08/20 Range/Units 06:42 06:42 11:20 WBC 23.6 H (4.5-11.0) K/mm3 RBC 3.54 L (3.65-5.03) M/mm3 RDW 17.8 H (13.2-15.2) % Seg Neuts % (Manual) (40.0-70.0) % Lymphocytes % (Manual) (13.4-35.0) % Seg Neutrophils # Man (1.8-7.7) K/mm3 ABG pH (7.320-7.450) POC ABG pO2 (83-108) mmHg ABG Hemoglobin (12.0-17.5) ABG Glucose (65-95) mg/dL BUN 28 H (7-17) mg/dL Creatinine 1.6 H (0.6-1.2) mg/dL Glucose 141 H (65-100) mg/dL POC Glucose 127 H (70-105) mg/dL Calcium 7.6 L (8.4-10.2) mg/dL Ionized Calcium (4.8-5.6) mg/dL AST 162 H (5-40) units/L ALT 103 H (7-56) units/L Total Protein 5.4 L (6.3-8.2) g/dL Albumin 2.7 L (3.9-5) g/dL Arterial Blood Glucose (65-95) mg/dL Arterial Blood Ionized Calcium (4.6-5.3) mg/dL
--- NOTE | 2020-10-08 11:49 | Progress Note ---
Assessment and Plan A: POD#6 s/p repeat section at 36 wks secondary to Eclampsia and Cardiac Arrest with Resuscitation POD#6 s/p supracervical abdominal hysterectomy secondary to Uterine [place], Hemorrhage and Disseminated Intravascular Coagulation (DIC) s/p multiple transfusions of blood products Acute Kidney Injury, nonoligouric P: Continue supportive care as recommended by Pulmonology/Critical Care, Internal Medicine, Infectious Disease, Nephrology and Hematology-Oncology Await EEG results, initial testing prior to repeat cardiac arrest overnight, may benefit from repeat assessment Continue with clinical evaluation Await Neuro assessment and recommendations Subjective - Subjective Date of service: 10/08/20 Principal diagnosis: Eclampsia/HELLP Syndrome, ADOLPH, DIC; s/p , s/p supracervical hyst Interval history: All technical healthcare consultant recommendations reviewed and greatly appreciated. CT scan reviewed. Per RN, EEG not yet read at this time. Acute episode overnight, cardiac arrest resulting in Code Blue with reintubation. Pt remains intubated and sedated. Currently holding BP without pressors. Sedation changed, prn pain medications added. +BM, AVINASH drainage noted. Tube feeding continues. Patient reports: other (intubated) : in NICU Objective - Vital Signs Latest vital signs: Vital Signs Temp Pulse Pulse Resp BP Pulse Ox 10/08/20 10:33 75 116/70 10/08/20 10:15 76 11 L 124/74 98 10/08/20 10:00 76 13 124/71 97 10/08/20 09:45 75 14 118/71 98 10/08/20 09:30 77 14 116/70 98 10/08/20 09:15 77 13 120/67 98 10/08/20 09:00 79 12 120/61 98 10/08/20 08:45 77 14 123/56 97 10/08/20 08:30 79 14 130/69 97 10/08/20 08:15 82 15 143/95 100 10/08/20 08:00 98.6 F 83 19 143/95 96 10/08/20 07:45 81 15 134/87 96 10/08/20 07:30 89 16 148/94 97 10/08/20 07:15 84 16 127/83 98 10/08/20 07:03 76 156/81 97 10/08/20 07:01 78 14 173/68 97 10/08/20 06:45 81 15 143/84 97 10/08/20 06:30 76 15 143/84 97 10/08/20 06:15 77 15 144/89 97 10/08/20 06:11 80 16 146/85 97 10/08/20 06:00 81 16 146/85 98 10/08/20 05:51 82 15 144/80 97 10/08/20 05:45 77 15 144/80 99 10/08/20 05:30 76 14 139/78 98 10/08/20 05:15 78 14 146/83 98 10/08/20 05:00 78 14 148/89 98 10/08/20 04:45 91 H 26 H 135/86 94 10/08/20 04:31 77 16 135/86 99 10/08/20 04:15 74 19 131/81 98 10/08/20 04:00 98.9 F 74 75 16 127/74 98 10/08/20 03:45 75 18 139/84 98 10/08/20 03:30 75 16 146/83 99 10/08/20 03:15 75 16 143/87 99 10/08/20 03:00 76 16 140/88 99 10/08/20 02:45 77 15 143/91 99 10/08/20 02:30 80 14 149/95 100 10/08/20 02:15 77 19 126/83 100 10/08/20 02:00 67 20 126/83 100 10/08/20 01:45 67 20 127/82 100 10/08/20 01:30 67 18 126/78 100 10/08/20 01:15 68 21 120/77 100 10/08/20 01:00 69 22 122/77 99 10/08/20 00:45 71 23 126/78 100 10/08/20 00:33 71 112/66 100 10/08/20 00:30 72 15 112/66 99 10/08/20 00:15 17 113/64 99 10/08/20 00:00 98.1 F 72 71 24 110/63 99 20 23:45 20 109/62 99 10/07/20 23:30 18 109/64 98 10/07/20 23:27 24 119/70 99 20 23:15 79 22 119/70 99 10/07/20 23:00 35 H 116/70 98 12/23/20 22:45 17 125/77 98 10/07/20 22:30 87 15 131/85 99 10/07/20 22:15 88 17 122/77 99 10/07/20 22:00 82 22 122/77 99 10/07/20 21:45 86 23 114/75 100 10/07/20 21:30 89 23 104/68 98 10/07/20 21:15 92 H 29 H 114/65 98 10/07/20 21:00 95 H 33 H 118/63 97 10/07/20 20:52 96 H 116/58 10/07/20 20:45 97 H 17 116/58 97 10/07/20 20:31 107 H 16 154/99 96 10/07/20 20:15 100 H 18 125/61 97 10/07/20 20:00 98.3 F 96 H 82 20 126/59 99 10/07/20 19:45 108 H 75 H 162/100 96 10/07/20 19:31 75 11 L 147/52 97 10/07/20 19:15 86 11 L 158/73 97 10/07/20 19:00 98 H 18 184/95 76 L 10/07/20 18:45 84 21 187/103 62 L 10/07/20 18:41 86 176/109 10/07/20 18:30 84 22 166/106 93 10/07/20 18:15 85 24 160/96 92 10/07/20 18:00 85 21 164/103 92 10/07/20 17:45 84 22 168/96 92 10/07/20 17:30 83 22 166/85 92 10/07/20 17:15 83 21 162/94 92 10/07/20 17:00 84 20 159/97 92 10/07/20 16:47 98.5 F 10/07/20 16:45 83 18 178/106 92 10/07/20 16:30 89 22 178/106 92 10/07/20 16:15 82 18 159/94 92 10/07/20 16:04 84 160/87 10/07/20 16:00 83 19 160/87 99 10/07/20 15:45 84 38 H 148/96 93 10/07/20 15:30 75 27 H 147/92 99 10/07/20 15:15 82 18 147/91 92 10/07/20 15:00 82 16 141/87 92 10/07/20 14:52 22 10/07/20 14:45 82 18 151/87 92 10/07/20 14:30 85 23 164/95 90 10/07/20 14:15 80 21 164/91 93 10/07/20 14:00 80 17 153/92 93 10/07/20 13:45 79 18 160/87 93 10/07/20 13:30 76 29 H 147/91 94 10/07/20 13:15 78 16 149/95 93 10/07/20 13:00 78 31 H 151/87 94 10/07/20 12:45 78 26 H 147/87 93 10/07/20 12:30 78 15 149/92 93 10/07/20 12:15 79 15 140/84 93 10/07/20 12:00 79 14 153/86 98 10/07/20 11:45 92 H 20 205/114 90 Intake and Output 10/07/20 10/08/20 10/08/20 22:59 06:59 14:59 Intake Total 818.640 0469.758 281.127 Output Total 225 1350 Balance 376.115 -7.242 281.127 Intake: IV 156.115 982.758 21.127 CEFEPIME/NS 2 GM/100 ML 2 100 gm In 100 ml @ 200 mls/ hr IV Q12H ERINN Rx#: [id number] D10w 1,000 ml @ 75 mls/hr 960 IV DIRECT ERINN Rx#: [id number] fentaNYL DRIP Premix 2, 56.115 22.758 21.127 000 mcg In 100 ml @ 1 MCG /KG/HR 6.235 mls/hr IV TITR ERINN Rx#:[id number] Intake, Free Water 200 Tube Feeding 195 260 260 Other 50 100 Output: Drainage 125 200 Left 125 200 Urine 100 1150 Indwelling Catheter 100 1150 Other: Total, Intake Amount 0 165 65 Total, Output Amount 175 400 Voiding Method Indwelling Catheter Indwelling Catheter - Exam Breasts: Present: deferred Cardiovascular: Present: Regular rate Abdomen: Present: soft Incision: Present: intact - Labs Labs: Abnormal lab results 10/05/20 10/07/20 10/07/20 Range/Units 05:00 07:05 12:21 WBC (4.5-11.0) K/mm3 RBC (3.65-5.03) M/mm3 RDW (13.2-15.2) % Seg Neuts % (Manual) 94.0 H (40.0-70.0) % Lymphocytes % (Manual) 6.0 L (13.4-35.0) % Seg Neutrophils # Man 18.0 H (1.8-7.7) K/mm3 ABG pH (7.320-7.450) POC ABG pO2 (83-108) mmHg ABG Hemoglobin (12.0-17.5) ABG Glucose (65-95) mg/dL BUN (7-17) mg/dL Creatinine (0.6-1.2) mg/dL Glucose (65-100) mg/dL POC Glucose 124 H (70-105) mg/dL Calcium (8.4-10.2) mg/dL Ionized Calcium 3.9 L (4.8-5.6) mg/dL AST (5-40) units/L ALT (7-56) units/L Total Protein (6.3-8.2) g/dL Albumin (3.9-5) g/dL Arterial Blood Glucose (65-95) mg/dL Arterial Blood Ionized Calcium (4.6-5.3) mg/dL 10/07/20 10/07/20 10/07/20 Range/Units 19:52 21:50 23:41 WBC (4.5-11.0) K/mm3 RBC (3.65-5.03) M/mm3 RDW (13.2-15.2) % Seg Neuts % (Manual) (40.0-70.0) % Lymphocytes % (Manual) (13.4-35.0) % Seg Neutrophils # Man (1.8-7.7) K/mm3 ABG pH (7.320-7.450) POC ABG pO2 (83-108) mmHg ABG Hemoglobin (12.0-17.5) ABG Glucose (65-95) mg/dL BUN (7-17) mg/dL Creatinine (0.6-1.2) mg/dL Glucose (65-100) mg/dL POC Glucose 193 H 138 H 118 H (70-105) mg/dL Calcium (8.4-10.2) mg/dL Ionized Calcium (4.8-5.6) mg/dL AST (5-40) units/L ALT (7-56) units/L Total Protein (6.3-8.2) g/dL Albumin (3.9-5) g/dL Arterial Blood Glucose (65-95) mg/dL Arterial Blood Ionized Calcium (4.6-5.3) mg/dL 10/08/20 10/08/20 10/08/20 Range/Units 04:20 05:30 05:43 WBC (4.5-11.0) K/mm3 RBC (3.65-5.03) M/mm3 RDW (13.2-15.2) % Seg Neuts % (Manual) (40.0-70.0) % Lymphocytes % (Manual) (13.4-35.0) % Seg Neutrophils # Man (1.8-7.7) K/mm3 ABG pH 7.467 H (7.320-7.450) POC ABG pO2 189.8 H (83-108) mmHg ABG Hemoglobin 10.8 L (12.0-17.5) ABG Glucose 133 H (65-95) mg/dL BUN (7-17) mg/dL Creatinine (0.6-1.2) mg/dL Glucose (65-100) mg/dL POC Glucose 114 H 126 H (70-105) mg/dL Calcium (8.4-10.2) mg/dL Ionized Calcium (4.8-5.6) mg/dL AST (5-40) units/L ALT (7-56) units/L Total Protein (6.3-8.2) g/dL Albumin (3.9-5) g/dL Arterial Blood Glucose 133 H (65-95) mg/dL Arterial Blood Ionized Calcium 4.2 L (4.6-5.3) mg/dL 10/08/20 10/08/20 10/08/20 Range/Units 06:42 06:42 11:20 WBC 23.6 H (4.5-11.0) K/mm3 RBC 3.54 L (3.65-5.03) M/mm3 RDW 17.8 H (13.2-15.2) % Seg Neuts % (Manual) (40.0-70.0) % Lymphocytes % (Manual) (13.4-35.0) % Seg Neutrophils # Man (1.8-7.7) K/mm3 ABG pH (7.320-7.450) POC ABG pO2 (83-108) mmHg ABG Hemoglobin (12.0-17.5) ABG Glucose (65-95) mg/dL BUN 28 H (7-17) mg/dL Creatinine 1.6 H (0.6-1.2) mg/dL Glucose 141 H (65-100) mg/dL POC Glucose 127 H (70-105) mg/dL Calcium 7.6 L (8.4-10.2) mg/dL Ionized Calcium (4.8-5.6) mg/dL AST 162 H (5-40) units/L ALT 103 H (7-56) units/L Total Protein 5.4 L (6.3-8.2) g/dL Albumin 2.7 L (3.9-5) g/dL Arterial Blood Glucose (65-95) mg/dL Arterial Blood Ionized Calcium (4.6-5.3) mg/dL
[2020-10-08 13:02] LABS: Total Cells Counted 100
[2020-10-08 13:03] LABS: Anisocytosis Few; Platelet Estimate Consistent w Auto; Schistocytes Few; Tear Drop Cells Few
--- NOTE | 2020-10-08 17:30 | Progress Note ---
Assessment and Plan Impression: * Nonoliguric acute kidney injury secondary to ischemic ATN * Cardiac arrest * Shock * Acute hypoxic respiratory failure * DIC * Anemia secondary to acute blood loss * hemorrhage * Mixed respiratory/metabolic acidosis * Presumed eclampsia * Hypokalemia, mild * Hypocalcemia Plan: * Renal function is stable. There is no need for renal replacement therapy at this time * Transfusion of blood products per primary team and hematology * Pressors prn to maintain MAP>65 * Reviewed ID note * Strict I/O * Vent management per pulmonary/CCM * Dose medications for renal function * Avoid potential nephrotoxins Subjective Date of service: 10/08/20 Principal diagnosis: Eclampsia/HELLP Syndrome, ADOLPH, DIC; s/p , s/p supracervical hyst Interval history: Patient was seen for her renal issues Nursing, interdisciplinary and consult notes were reviewed Vitals, input and output, medications and labs were reviewed Remains intubated Off Mag drip Objective - Exam Narrative Exam: Constitutional: Sedated. Intubated. Head: Normocephalic/atraumatic Neck: Supple Lungs: Intubated. Mechanical breath sounds. Cardiovascular: RRR, no M/R/G Abdomen: Soft, nontender, NABS Extremities: No edema, pulses within normal limits Skin: Intact, no rash Neuro: Sedated. - Vital Signs Vital signs: Vital Signs - 12hr 10/08/20 10/08/20 10/08/20 05:30 05:45 05:51 Temperature Pulse Rate 76 77 82 Respiratory 14 15 15 Rate Blood Pressure 139/78 144/80 144/80 O2 Sat by Pulse 98 99 97 Oximetry 10/08/20 10/08/20 10/08/20 06:00 06:11 06:15 Temperature Pulse Rate 81 80 77 Respiratory 16 16 15 Rate Blood Pressure 146/85 146/85 144/89 O2 Sat by Pulse 98 97 97 Oximetry 10/08/20 10/08/20 10/08/20 06:30 06:45 07:01 Temperature Pulse Rate 76 81 78 Respiratory 15 15 14 Rate Blood Pressure 143/84 143/84 173/68 O2 Sat by Pulse 97 97 97 Oximetry 10/08/20 10/08/20 10/08/20 07:03 07:15 07:30 Temperature Pulse Rate 76 84 89 Respiratory 16 16 Rate Blood Pressure 156/81 127/83 148/94 O2 Sat by Pulse 97 98 97 Oximetry 10/08/20 10/08/20 10/08/20 07:45 08:00 08:15 Temperature 98.6 F Pulse Rate 81 83 82 Respiratory 15 16 15 Rate Blood Pressure 134/87 143/95 143/95 O2 Sat by Pulse 96 96 100 Oximetry 10/08/20 10/08/20 10/08/20 08:30 08:45 09:00 Temperature Pulse Rate 79 77 79 Respiratory 14 14 12 Rate Blood Pressure 130/69 123/56 120/61 O2 Sat by Pulse 97 97 98 Oximetry 10/08/20 10/08/20 10/08/20 09:15 09:30 09:45 Temperature Pulse Rate 77 77 75 Respiratory 13 14 14 Rate Blood Pressure 120/67 116/70 118/71 O2 Sat by Pulse 98 98 98 Oximetry 10/08/20 10/08/20 10/08/20 10:00 10:15 10:30 Temperature Pulse Rate 76 76 75 Respiratory 13 11 L 11 L Rate Blood Pressure 124/71 124/74 116/70 O2 Sat by Pulse 97 98 97 Oximetry 10/08/20 10/08/20 10/08/20 10:33 10:45 11:00 Temperature Pulse Rate 75 75 74 Respiratory 11 L 10 L Rate Blood Pressure 116/70 121/73 126/75 O2 Sat by Pulse 98 98 Oximetry 10/08/20 10/08/20 10/08/20 11:15 11:30 11:41 Temperature Pulse Rate 70 68 73 Respiratory 10 L 11 L Rate Blood Pressure 117/70 117/73 126/75 O2 Sat by Pulse 98 98 98 Oximetry 10/08/20 10/08/20 10/08/20 11:45 12:00 12:15 Temperature 98.1 F Pulse Rate 67 64 61 Respiratory 9 L 13 15 Rate Blood Pressure 115/71 125/76 126/79 O2 Sat by Pulse 98 98 98 Oximetry 10/08/20 10/08/20 10/08/20 12:30 12:45 13:00 Temperature Pulse Rate 62 63 63 Respiratory 14 16 17 Rate Blood Pressure 131/78 131/78 129/80 O2 Sat by Pulse 98 98 98 Oximetry 10/08/20 10/08/20 10/08/20 13:15 13:30 13:45 Temperature Pulse Rate 62 59 L 62 Respiratory 19 19 17 Rate Blood Pressure 138/81 138/81 138/81 O2 Sat by Pulse 98 98 97 Oximetry 10/08/20 10/08/20 10/08/20 14:00 14:15 14:30 Temperature Pulse Rate 60 59 L 60 Respiratory 18 18 15 Rate Blood Pressure 135/80 135/80 142/85 O2 Sat by Pulse 97 97 97 Oximetry 10/08/20 10/08/20 10/08/20 14:45 15:00 15:06 Temperature Pulse Rate 62 63 63 Respiratory 15 17 Rate Blood Pressure 143/88 142/78 142/78 O2 Sat by Pulse 97 96 Oximetry 10/08/20 10/08/20 10/08/20 15:15 15:30 15:45 Temperature Pulse Rate 65 66 63 Respiratory 18 16 16 Rate Blood Pressure 133/83 140/83 146/85 O2 Sat by Pulse 97 97 97 Oximetry 10/08/20 10/08/20 10/08/20 15:57 16:00 16:15 Temperature 98.0 F Pulse Rate 65 64 59 L Respiratory 19 20 Rate Blood Pressure 142/78 146/79 140/83 O2 Sat by Pulse 97 97 97 Oximetry 10/08/20 16:30 Temperature Pulse Rate 59 L Respiratory 20 Rate Blood Pressure 152/85 O2 Sat by Pulse 97 Oximetry - Lab 10/08/20 06:42 10/08/20 06:42 Most recent lab results ABG pH 7.467 (7.320-7.450) H 10/08/20 05:30 ABG pCO2 39.7 mm Hg 10/05/20 05:03 ABG pO2 74.3 mm Hg (80.0-90.0) L 10/05/20 05:03 ABG HCO3 27.5 mmol/L (20.0-26.0) H 10/05/20 05:03 ABG O2 Saturation 96.3 % (95.0-99.0) 10/05/20 05:03 Calcium 7.6 mg/dL (8.4-10.2) L 10/08/20 06:42 Magnesium 6.10 mg/dL (1.7-2.3) H 10/07/20 07:05 Medications & Allergies - Medications Allergies/Adverse Reactions: Allergies egg Allergy (Severe, Verified 05/22/20 16:09) Anaphylaxis NSAIDS (Non-Steroidal Anti-Inflamma Allergy (Severe, Verified 05/22/20 16:09) Unknown pt c/o Palpitations, nervous, had to take benadryl Sulfa (Sulfonamide Antibiotics) Allergy (Severe, Verified 05/22/20 16:09) Anaphylaxis SWELING,NUMBNESS ibuprofen Allergy (Intermediate, Verified 05/22/20 16:09) Bleeding latex Allergy (Verified 05/22/20 16:09) Hives plecanatide [From Trulance] Allergy (Verified 05/22/20 16:09) Anaphylaxis adhesive tape Adverse Reaction (Intermediate, Verified 05/22/20 16:09) Unknown PAPER TAPE OK metoclopramide [From Reglan] Adverse Reaction (Verified 05/22/20 16:09) Unknown Home Medications: Home Medications Medication Instructions Recorded Confirmed Last Taken Type Pantoprazole [Protonix TAB] 20 mg PO DAILY 05/10/19 08/20/20 05/10/19 05:00 His tory busPIRone 15 mg PO DAILY 01/15/20 08/20/20 Unknown History Albuterol Sulfate [Proventil Hfa] 6.7 gm IH Q4HR PRN #1 hfa.aer.ad 04/07/20 08/20/20 Unknown Rx Topiramate (Nf) [Trokendi XR CAP] 100 mg PO DAILY 08/20/20 08/20/20 Unknown History oxyCODONE /ACETAMINOPHEN [Percocet 1 tab PO Q6HR 08/20/20 08/20/20 Unknown History 5/325 mg] Active Medications: Generic Name Dose Route Start Last Admin Trade Name Freq PRN Reason Stop Dose Admin Acetaminophen 650 mg 10/05/20 16:34 10/05/20 16:47 Acetaminophen 325 Mg/10.15 Ml Oral Liqd Unit Dose FEEDTUBE 650 mg Q6H PRN Administration Non Cardiac Pain or Temp>100.5 Lipase/Protease/Amylase 1 each 10/05/20 11:09 Lipase 10,500/Protease 25,000/Amylase 43,750 (Units) Dr Barakat FEEDTUBE PRN PRN For Clogged Feeding Tube Buspirone HCl 15 mg 10/08/20 10:00 10/08/20 10:34 Buspirone 5 Mg Tab PO 15 mg BID ERINN Administration Famotidine 20 mg 10/07/20 10:00 10/08/20 10:33 Famotidine 20 Mg Tab PO 20 mg BID ERINN Administration Hydralazine HCl 20 mg 10/07/20 11:49 10/07/20 18:41 Hydralazine 20 Mg/1 Ml Inj IV 20 mg Q6H PRN Administration SBP >170 Hydromorphone HCl 1 mg 10/07/20 11:26 10/07/20 14:52 Hydromorphone 1 Mg/1 Ml Inj IV 1 mg Q3H PRN Administration Pain , Severe (7-10) Hydrophilic Ointment 1 applic 10/04/20 06:55 Lip Therapy Vaseline TP Q2HR PRN Dry Lips Dextrose 1,000 mls @ 75 mls/hr 10/04/20 18:50 10/08/20 15:07 D10w IV 75 mls/hr DIRECT ERINN Administration Cefepime HCl 2 gm in 100 mls @ 200 mls/hr 10/05/20 17:00 10/08/20 04:34 Cefepime/Ns 2 Gm/100 Ml IV 200 mls/hr Q12H ERINN Administration Protocol Dexmedetomidine HCl 400 mcg/ 104 mls @ 7.249 mls/hr 10/08/20 10:00 10/08/20 11:50 Sodium Chloride IV 0.3 mcg/kg/hr TITRATE ERINN 10.873 mls/hr Titration Protocol 0.2 MCG/KG/HR Labetalol HCl 100 mg 10/07/20 14:00 10/08/20 15:06 Labetalol 100 Mg Tab PO 100 mg TID ERINN Administration Lorazepam 2 mg 10/02/20 22:05 10/07/20 14:52 Lorazepam 2 Mg/Ml Vial IV 2 mg Q2H PRN Administration Seizures Multi-Ingred Cream/Lotion/Oil/Oint 1 applic 10/04/20 06:55 Mineral Oil/Petrolatum, White Ophth Oint 3.5 Gm OU Q4HR PRN Dry Eye(s) Simple Syrup 15 ml 10/05/20 11:09 Simple Syrup 15 Ml FEEDTUBE PRN PRN Hypoglycemia Simple Syrup 30 ml 10/05/20 11:09 Simple Syrup 15 Ml FEEDTUBE PRN PRN Hypoglycemia Sodium Bicarbonate 325 mg 10/05/20 11:09 Sodium Bicarbonate 325 Mg Tab FEEDTUBE PRN PRN For Clogged Feeding Tube Topiramate 50 mg 10/05/20 11:00 10/08/20 10:33 Topiramate Tab 25 Mg Tab PO 50 mg Q12HR ERINN Administration
--- NOTE | 2020-10-08 17:58 | Progress Note ---
Assessment and Plan -- Sepsis with presumed Pneumonia Teat with iv abx, follow Cx --Acute respiratory failure with hypoxia Patient intubated Vent management per CC --DIC (disseminated intravascular coagulation) vs HELLP syndrome Has anemia,thrombocytopenia and elevated liver enzymes Patient received multiple units of RBCs, FFP's, cryo Hematology/oncology recommendations appreciated Continue to trend fibrinogen and INR Critical care on board --Possible Eclampsia/HELLP Syndrome Patient presented with seizure-->hypoxia-->urgent C section-->hysterectomy for severe bleeding/DIC developed severe anemia-->received RBC, plt, FFP, cryo was on max pressors-->now off pressors still on vent, on sedation Hematology following --s/p Cardiac arrest on admission and 10/07 ACLS protocol followed by revival Echo pending --Shock Now on one pressor Likely hypovolemic. Started on empirical antibiotics for possible sepsis. Continue to monitor blood pressure closely Trend H&H and transfuse as needed --Lactic acidosis As a result of poor organ perfusion and possible sepsis Continue IV hydration. Lactic acid is trending down Nephrology on board --ADOLPH As a result of hypoperfusion and shock Continue IV hydration Cr stable at 1.7. --DVT prophylaxis Patient in DIC No anticoagulants The high probability of a clinically significant, sudden or life threatening deterioration of the [pulmonary] system(s) required my full and direct attention, intervention and personal management. The aggregate critical care time was [35] minutes. This time is in addition to time spent performing reported procedures but includes the following: [x] Data Review and interpretation [x] Patient assessment and monitoring of vital signs [x] Documentation [x] Medication orders and management brief History 30 year old -[place] female CHE 10/25/20 at 36w5d who presents with seizures in triage on 10/02/20. Pt was not able to provide history but per pt's , she presented to the hospital to return a 24 hour urine specimen for analysis. She then suddenly reported that she did not feel good. She was taken to labor and delivery and shortly after arrival, she began seizing. During this time, a code met was called because the patient became hypoxic. She was then noted to be without a pulse. Chest compressions were started immediately, and the patient was emergently taken to the operating room for delivery of the fetus. 01This patient has had care at [facility] with comanagement by [facility] since 11 wks complicated by ADHD, morbid obesity, generalized anxiety disorder, panic attacks, chronic narcotic use, fibromyalgia, GERD, Irritable Bowel Syndrome, Migraines, h/o endometrial ablation and ovarian vein embolization, genital herpes, insomnia, LGA fetus, nausea and vomiting, polyhydramnios, quad screen positive for Down's Syndrome, and previous x 3. She is GBS negative. 11:30: Pt brought to L&D triage for evaluation of possible labor. Pt accompanied by her spouse. Pt spouse poor historian; unable to obtain history- allergies at this time. Pt taken from registration to triage area via WC. Pt unresponsive, actively seizing with snorous respirations. home care assistant, Kassy, called and requesting assistance. 11:35: Multiple staff at bedside. Pt 02 sat 67% on nonrebreather, unable to read BP at this time. Yifan Theodore CRNA, at bedside for intubation and assistance with IV insertion. INT attempt by multiple RNs unsuccessful at this time. 11:42: Pt being bagged by KORIN, 02% 79%. No pulse palpated, compressions started at this time; bharati young called and Dr. Newberry preparing OR for emergent c/s. 11:44: Continued compressions on stretcher while transporting pt to OR 1. Pt being bagged with jaw thrust manuever in place by KORIN Stringer student. 11:45: Arrival to OR 1. Dr. Newberry and Dr. Portillo present for emergent c/s. Code team arrived for continued care. patient revived and c/s done Patient has been bleeding from C/s site followed by supracervical hysterectomy for severe bleeding Patient transfused multiple units of PRBC, Patient in DIC. Transferred to the ICU 10/03. Patient seen and examined at bedside this morning. Patient is nonresponsive and mechanically ventilated. On pressors. Labs reviewed-has leukocytosis, anemia, thrombocytopenia, ADOLPH and lactic acidosis. Started on IV antibiotics to cover possible sepsis secondary to DIC. Hematology oncology recommendations appreciated-needs additional cryoprecipitate and FFP. Monitor D-dimer, fibrinogen and frequent labs. Nephrology consulted for lactic acidosis and ADOLPH. 10/04. Remains mechanically ventilated. Pilgrim antibiotics. Labs shows improved acidosis - lactic acid 3.5. Hb drop noted. Getting transfused 2 units PRBCs. Platelet count is ~40k. Continue to monitor labs closely. Critical care team on board. 10/05; xray reviewed, concerning for multifocal infilrate, likely underlying Pneumonia, will add ID consult to assist with management of this critically ill patient, start tube feed, closely monitor renal system 10/06: Resumed care, remains on mechanical ventilation. No active bleeding, H&H stable. Continue to monitor CBC and BMP. Continue IV antibiotic for underlying pneumonia. Follow critical care and ID recommendation. 10/07: Remains on mechanical ventilation. No active bleeding, H&H stable. Critical care following, wean off ventilation as tolerated. 10/08: Patient had another cardiac arrest last night. Remains on mechanical ventilation, update family. Continue supportive care -poor prognosis Subjective Date of service: 10/08/20 Principal diagnosis: Eclampsia/HELLP Syndrome, ADOLPH, DIC; s/p , s/p supracervical hyst Interval history: Patient seen and examined Remains intubated No active bleeding H&H stable Discussed with RN at the bedside Objective - Exam Narrative Exam: vITAL SIGNS: Reviewed. GENERAL: Intubated HEAD: No signs of head trauma. EYES: Pupils are equal. MOUTH: OT in place NECK: No adenopathy, no JVD. CHEST: Rales posteriorly CARDIAC: normal S1 and S2, without murmurs, gallops, or rubs. ABDOMEN: Soft, non tender and non distended. surgical wound in tact, No rebound or guarding, and no masses palpated. Bowel Sounds normal. AVINASH drain intact with bloody fluid MUSCULOSKELETAL: No edema NEUROLOGIC EXAM: Intubated SKIN: No obvious lesions - Constitutional Vitals: Vital Signs - 12hr 10/08/20 10/08/20 10/08/20 06:00 06:11 06:15 Temperature Pulse Rate 81 80 77 Respiratory 16 16 15 Rate Blood Pressure 146/85 146/85 144/89 O2 Sat by Pulse 98 97 97 Oximetry 10/08/20 10/08/20 10/08/20 06:30 06:45 07:01 Temperature Pulse Rate 76 81 78 Respiratory 15 15 14 Rate Blood Pressure 143/84 143/84 173/68 O2 Sat by Pulse 97 97 97 Oximetry 10/08/20 10/08/20 10/08/20 07:03 07:15 07:30 Temperature Pulse Rate 76 84 89 Respiratory 16 16 Rate Blood Pressure 156/81 127/83 148/94 O2 Sat by Pulse 97 98 97 Oximetry 10/08/20 10/08/20 10/08/20 07:45 08:00 08:15 Temperature 98.6 F Pulse Rate 81 83 82 Respiratory 15 16 15 Rate Blood Pressure 134/87 143/95 143/95 O2 Sat by Pulse 96 96 100 Oximetry 10/08/20 10/08/20 10/08/20 08:30 08:45 09:00 Temperature Pulse Rate 79 77 79 Respiratory 14 14 12 Rate Blood Pressure 130/69 123/56 120/61 O2 Sat by Pulse 97 97 98 Oximetry 10/08/20 10/08/20 10/08/20 09:15 09:30 09:45 Temperature Pulse Rate 77 77 75 Respiratory 13 14 14 Rate Blood Pressure 120/67 116/70 118/71 O2 Sat by Pulse 98 98 98 Oximetry 10/08/20 10/08/20 10/08/20 10:00 10:15 10:30 Temperature Pulse Rate 76 76 75 Respiratory 13 11 L 11 L Rate Blood Pressure 124/71 124/74 116/70 O2 Sat by Pulse 97 98 97 Oximetry 10/08/20 10/08/20 10/08/20 10:33 10:45 11:00 Temperature Pulse Rate 75 75 74 Respiratory 11 L 10 L Rate Blood Pressure 116/70 121/73 126/75 O2 Sat by Pulse 98 98 Oximetry 10/08/20 10/08/20 10/08/20 11:15 11:30 11:41 Temperature Pulse Rate 70 68 73 Respiratory 10 L 11 L Rate Blood Pressure 117/70 117/73 126/75 O2 Sat by Pulse 98 98 98 Oximetry 10/08/20 10/08/20 10/08/20 11:45 12:00 12:15 Temperature 98.1 F Pulse Rate 67 64 61 Respiratory 9 L 13 15 Rate Blood Pressure 115/71 125/76 126/79 O2 Sat by Pulse 98 98 98 Oximetry 10/08/20 10/08/20 10/08/20 12:30 12:45 13:00 Temperature Pulse Rate 62 63 63 Respiratory 14 16 17 Rate Blood Pressure 131/78 131/78 129/80 O2 Sat by Pulse 98 98 98 Oximetry 10/08/20 10/08/20 10/08/20 13:15 13:30 13:45 Temperature Pulse Rate 62 59 L 62 Respiratory 19 19 17 Rate Blood Pressure 138/81 138/81 138/81 O2 Sat by Pulse 98 98 97 Oximetry 10/08/20 10/08/20 10/08/20 14:00 14:15 14:30 Temperature Pulse Rate 60 59 L 60 Respiratory 18 18 15 Rate Blood Pressure 135/80 135/80 142/85 O2 Sat by Pulse 97 97 97 Oximetry 10/08/20 10/08/20 10/08/20 14:45 15:00 15:06 Temperature Pulse Rate 62 63 63 Respiratory 15 17 Rate Blood Pressure 143/88 142/78 142/78 O2 Sat by Pulse 97 96 Oximetry 10/08/20 10/08/20 10/08/20 15:15 15:30 15:45 Temperature Pulse Rate 65 66 63 Respiratory 18 16 16 Rate Blood Pressure 133/83 140/83 146/85 O2 Sat by Pulse 97 97 97 Oximetry 10/08/20 10/08/20 10/08/20 15:57 16:00 16:15 Temperature 98.0 F Pulse Rate 65 64 59 L Respiratory 19 20 Rate Blood Pressure 142/78 146/79 140/83 O2 Sat by Pulse 97 97 97 Oximetry 10/08/20 16:30 Temperature Pulse Rate 59 L Respiratory 20 Rate Blood Pressure 152/85 O2 Sat by Pulse 97 Oximetry - Labs CBC & Chem 7: 10/10/20 04:00 10/10/20 04:00 Labs: Abnormal lab results 10/05/20 10/07/20 10/07/20 Range/Units 05:00 19:52 21:50 WBC (4.5-11.0) K/mm3 RBC (3.65-5.03) M/mm3 RDW (13.2-15.2) % Seg Neuts % (Manual) (40.0-70.0) % Lymphocytes % (Manual) (13.4-35.0) % Nucleated RBC % (0.0-0.9) % Seg Neutrophils # Man (1.8-7.7) K/mm3 Lymphocytes # (Manual) (1.2-5.4) K/mm3 Monocytes # (Manual) (0.0-0.8) K/mm3 ABG pH (7.320-7.450) POC ABG pO2 (83-108) mmHg ABG Hemoglobin (12.0-17.5) ABG Glucose (65-95) mg/dL BUN (7-17) mg/dL Creatinine (0.6-1.2) mg/dL Glucose (65-100) mg/dL POC Glucose 193 H 138 H (70-105) mg/dL Calcium (8.4-10.2) mg/dL Ionized Calcium 3.9 L (4.8-5.6) mg/dL AST (5-40) units/L ALT (7-56) units/L Total Protein (6.3-8.2) g/dL Albumin (3.9-5) g/dL Arterial Blood Glucose (65-95) mg/dL Arterial Blood Ionized Calcium (4.6-5.3) mg/dL 10/07/20 10/08/20 10/08/20 Range/Units 23:41 04:20 05:30 WBC (4.5-11.0) K/mm3 RBC (3.65-5.03) M/mm3 RDW (13.2-15.2) % Seg Neuts % (Manual) (40.0-70.0) % Lymphocytes % (Manual) (13.4-35.0) % Nucleated RBC % (0.0-0.9) % Seg Neutrophils # Man (1.8-7.7) K/mm3 Lymphocytes # (Manual) (1.2-5.4) K/mm3 Monocytes # (Manual) (0.0-0.8) K/mm3 ABG pH 7.467 H (7.320-7.450) POC ABG pO2 189.8 H (83-108) mmHg ABG Hemoglobin 10.8 L (12.0-17.5) ABG Glucose 133 H (65-95) mg/dL BUN (7-17) mg/dL Creatinine (0.6-1.2) mg/dL Glucose (65-100) mg/dL POC Glucose 118 H 114 H (70-105) mg/dL Calcium (8.4-10.2) mg/dL Ionized Calcium (4.8-5.6) mg/dL AST (5-40) units/L ALT (7-56) units/L Total Protein (6.3-8.2) g/dL Albumin (3.9-5) g/dL Arterial Blood Glucose 133 H (65-95) mg/dL Arterial Blood Ionized Calcium 4.2 L (4.6-5.3) mg/dL 10/08/20 10/08/20 10/08/20 Range/Units 05:43 06:42 06:42 WBC 23.6 H (4.5-11.0) K/mm3 RBC 3.54 L (3.65-5.03) M/mm3 RDW 17.8 H (13.2-15.2) % Seg Neuts % (Manual) 93.0 H (40.0-70.0) % Lymphocytes % (Manual) 3.0 L (13.4-35.0) % Nucleated RBC % 1.0 H (0.0-0.9) % Seg Neutrophils # Man 21.9 H (1.8-7.7) K/mm3 Lymphocytes # (Manual) 0.7 L (1.2-5.4) K/mm3 Monocytes # (Manual) 0.9 H (0.0-0.8) K/mm3 ABG pH (7.320-7.450) POC ABG pO2 (83-108) mmHg ABG Hemoglobin (12.0-17.5) ABG Glucose (65-95) mg/dL BUN 28 H (7-17) mg/dL Creatinine 1.6 H (0.6-1.2) mg/dL Glucose 141 H (65-100) mg/dL POC Glucose 126 H (70-105) mg/dL Calcium 7.6 L (8.4-10.2) mg/dL Ionized Calcium (4.8-5.6) mg/dL AST 162 H (5-40) units/L ALT 103 H (7-56) units/L Total Protein 5.4 L (6.3-8.2) g/dL Albumin 2.7 L (3.9-5) g/dL Arterial Blood Glucose (65-95) mg/dL Arterial Blood Ionized Calcium (4.6-5.3) mg/dL 10/08/20 10/08/20 Range/Units 11:20 16:05 WBC (4.5-11.0) K/mm3 RBC (3.65-5.03) M/mm3 RDW (13.2-15.2) % Seg Neuts % (Manual) (40.0-70.0) % Lymphocytes % (Manual) (13.4-35.0) % Nucleated RBC % (0.0-0.9) % Seg Neutrophils # Man (1.8-7.7) K/mm3 Lymphocytes # (Manual) (1.2-5.4) K/mm3 Monocytes # (Manual) (0.0-0.8) K/mm3 ABG pH (7.320-7.450) POC ABG pO2 (83-108) mmHg ABG Hemoglobin (12.0-17.5) ABG Glucose (65-95) mg/dL BUN (7-17) mg/dL Creatinine (0.6-1.2) mg/dL Glucose (65-100) mg/dL POC Glucose 127 H 172 H (70-105) mg/dL Calcium (8.4-10.2) mg/dL Ionized Calcium (4.8-5.6) mg/dL AST (5-40) units/L ALT (7-56) units/L Total Protein (6.3-8.2) g/dL Albumin (3.9-5) g/dL Arterial Blood Glucose (65-95) mg/dL Arterial Blood Ionized Calcium (4.6-5.3) mg/dL HEART Score - HEART Score Age: < 45 Risk factors: 1-2 risk factors - Critical Actions Critical Actions: >7 pts:50-65% risk of adverse cardiac event. Early invasive measures
[2020-10-09] MEDS: DEXTROSE 10% IN WATER 1,000 ML IV SCH ×2 (03:20→17:02)
[2020-10-09] MEDS: CEFEPIME/NS 2 GM/100 ML 2 GM/100 ML BAG IV SCH ×2 (06:10→17:02)
--- NOTE | 2020-10-09 06:14 | XRay Report ---
CHEST - 1 VIEW INDICATION: follow up respiratory failure COMPARISON: Yesterday FINDINGS: SUPPORT DEVICES: Stable support device positioning. HEART: Stable cardiomediastinal silhouette. LUNGS/PLEURA: Stable mild patchy multifocal airspace disease/edema throughout the lungs. ADDITIONAL FINDINGS: None. IMPRESSION: Unchanged exam. Signer Name: Chris Yoder MD Signed: 10/09/2020 6:09 AM Workstation Name: [id number]
[2020-10-09 06:22] LABS: Hematocrit 31.1 % (30.3-42.9); Hemoglobin 10.4 gm/dl (10.1-14.3); Mean Corpuscular HGB Conc 34 % (30-34); Mean Corpuscular Volume 89 fl (79-97); Platelet Count 201 K/mm3 (140-440); Red Blood Count 3.51 M/mm3 (3.65-5.03); Red Cell Distribution Width 17.7 % (13.2-15.2)
[2020-10-09 06:43] LABS: Albumin 2.6 g/dL (3.9-5); Calcium 7.6 mg/dL (8.4-10.2)
[2020-10-09 07:37] LABS: Band Neutrophils # (Manual) 0.2 K/mm3; Total Cells Counted 100
[2020-10-09 07:38] LABS: Anisocytosis 1+; Platelet Estimate Consistent w Auto
[2020-10-09] MEDS: FAMOTIDINE 20 MG TAB PO SCH ×2 (10:16→22:43)
[2020-10-09] MEDS: busPIRone 5 MG TAB PO SCH ×2 (10:16→23:59)
[2020-10-09] MEDS: TOPIRAMATE TAB 25 MG TAB PO SCH ×2 (10:17→22:43)
[2020-10-09] MEDS ORDERED: POTASSIUM CHLORIDE ER 20 MEQ TAB PO ONE (14:32)
[2020-10-09] MEDS ORDERED: POTASSIUM CHLORIDE 20 MEQ PACKET FEEDTUBE ONE (15:00)
--- NOTE | 2020-10-09 15:56 | Progress Note ---
Assessment and Plan A: POD#7 s/p repeat section at 36 wks secondary to Eclampsia and Cardiac Arrest with Resuscitation POD#7 s/p supracervical abdominal hysterectomy secondary to Uterine Atony, Hemorrhage and Disseminated Intravascular Coagulation (DIC) s/p multiple transfusions of blood products Acute Kidney Injury, nonoligouric Cultures: Blood culture: no growth -Status post cardiac arrest 10/07/2020 requiring reintubation. -Shock, DIC: Secondary to hemorrhage, ?possible sepsis. Possible pneumonia versus fluid overload. -Acute kidney injury: Improving. -Acute respiratory failure: remains on the vent, settings reviewed -Transaminitis vs HELLP. Improving. -Preeclampsia: magnesium discontinued - hemorrhage: Status post , status post supracervical hysterectomy, monitor AVINASH drain P: Continue supportive care as recommended by Pulmonology/Critical Care, Internal Medicine, Infectious Disease, Nephrology and Hematology-Oncology Follow EEG results Continue with clinical evaluation Subjective - Subjective Date of service: 10/09/20 Principal diagnosis: Eclampsia/HELLP Syndrome, ADOLPH, DIC; s/p , s/p supracervical hyst Interval history: All specification consultant recommendations reviewed and greatly appreciated. Pt remains intubated and sedated. Objective - Vital Signs Latest vital signs: Vital Signs Temp Pulse Pulse Resp BP Pulse Ox 10/09/20 14:41 88 143/80 10/09/20 14:00 83 29 H 146/77 97 10/09/20 13:45 80 27 H 150/78 97 10/09/20 13:30 81 28 H 145/79 97 10/09/20 13:15 81 28 H 141/81 97 10/09/20 13:00 80 27 H 146/85 97 10/09/20 12:45 77 27 H 155/79 97 10/09/20 12:41 78 147/76 97 10/09/20 12:30 77 25 H 147/76 97 10/09/20 12:15 81 26 H 148/80 97 10/09/20 12:00 99.2 F 90 90 30 H 141/78 95 10/09/20 11:45 82 26 H 143/81 97 10/09/20 11:30 79 25 H 139/78 97 10/09/20 11:15 79 26 H 146/74 97 10/09/20 11:00 80 23 142/74 97 10/09/20 10:45 79 24 137/69 97 10/09/20 10:30 84 25 H 142/78 97 10/09/20 10:17 87 148/81 10/09/20 10:15 83 26 H 148/81 97 10/09/20 10:00 85 27 H 150/77 97 10/09/20 09:45 81 25 H 154/84 97 10/09/20 09:30 83 24 145/79 97 10/09/20 09:15 79 23 145/75 97 10/09/20 09:00 81 25 H 148/77 97 10/09/20 08:45 81 24 149/82 98 10/09/20 08:30 83 26 H 150/89 98 10/09/20 08:20 80 148/77 97 10/09/20 08:15 88 30 H 155/94 97 10/09/20 08:00 99.6 F 84 30 H 160/88 96 10/09/20 07:45 84 14 147/85 96 10/09/20 07:30 85 26 H 155/90 96 10/09/20 07:15 85 25 H 159/87 96 10/09/20 07:00 80 22 150/89 96 10/09/20 06:45 83 25 H 156/88 96 10/09/20 06:30 81 26 H 158/93 97 10/09/20 06:15 83 27 H 160/91 97 10/09/20 06:03 24 97 10/09/20 06:01 80 24 160/91 96 10/09/20 05:56 80 97 10/09/20 05:45 80 26 H 160/91 96 10/09/20 05:31 80 21 160/91 96 10/09/20 05:30 80 22 150/90 97 10/09/20 05:15 77 80 22 150/90 97 10/09/20 05:01 80 25 H 160/91 96 10/09/20 04:45 76 24 160/91 96 10/09/20 04:31 80 25 H 160/91 96 10/09/20 04:30 80 22 150/90 97 10/09/20 04:15 79 23 160/91 96 10/09/20 04:01 94 H 27 H 152/81 97 10/09/20 04:00 79 24 97 10/09/20 03:45 80 23 152/81 95 10/09/20 03:36 99.3 F 10/09/20 03:30 78 25 H 147/81 96 10/09/20 03:15 75 23 158/74 96 10/09/20 03:00 75 22 148/80 95 10/09/20 02:45 74 21 155/74 95 10/09/20 02:30 76 25 H 145/82 96 10/09/20 02:15 76 24 159/78 96 10/09/20 02:00 76 18 150/83 96 10/09/20 01:45 76 20 156/83 95 10/09/20 01:30 73 19 153/84 95 10/09/20 01:15 75 17 155/81 95 10/09/20 01:00 72 16 165/85 95 10/09/20 00:45 97 H 24 155/86 94 10/09/20 00:31 72 163/87 96 10/09/20 00:30 71 22 163/87 96 10/09/20 00:15 71 23 166/82 96 10/09/20 00:00 70 21 163/83 96 10/08/20 23:52 99.3 F 10/08/20 23:50 24 97 10/08/20 23:45 75 21 153/85 95 10/08/20 23:30 73 22 160/89 96 10/08/20 23:15 72 22 160/89 96 10/08/20 23:00 70 21 159/89 96 10/08/20 22:45 70 21 168/91 96 10/08/20 22:31 69 23 162/84 96 10/08/20 22:27 67 21 158/89 96 10/08/20 22:15 69 23 158/89 96 10/08/20 22:00 71 21 140/89 96 10/08/20 21:45 72 22 136/88 96 10/08/20 21:30 71 23 145/88 96 10/08/20 21:15 69 20 134/92 96 10/08/20 21:01 69 23 134/92 96 10/08/20 20:45 70 19 145/91 97 10/08/20 20:30 67 23 143/89 97 10/08/20 20:15 64 22 142/85 97 10/08/20 20:08 75 151/91 96 10/08/20 20:00 98.8 F 72 20 151/91 96 10/08/20 19:45 66 24 162/98 97 10/08/20 19:31 82 29 H 162/98 94 10/08/20 19:15 73 25 H 172/93 95 10/08/20 19:00 68 24 172/93 95 10/08/20 18:45 68 22 165/90 95 10/08/20 18:30 68 21 165/90 96 10/08/20 18:15 68 22 160/87 96 10/08/20 18:00 66 21 160/87 96 10/08/20 17:45 66 22 152/88 97 10/08/20 17:30 67 19 159/87 97 10/08/20 17:15 62 18 154/86 97 10/08/20 17:00 59 L 15 153/90 97 10/08/20 16:45 56 L 18 152/85 97 10/08/20 16:30 59 L 20 152/85 97 10/08/20 16:15 59 L 20 140/83 97 10/08/20 16:00 98.0 F 64 19 146/79 97 10/08/20 15:57 65 142/78 97 Intake and Output 10/09/20 10/09/20 10/09/20 06:59 14:59 22:59 Intake Total 1641.25 720 Output Total 1950 2910 Balance -308.75 -2190 Intake: IV 916.25 D10w 1,000 ml @ 75 mls/hr 916.25 IV DIRECT ERINN Rx#: [id number] Intake, Free Water 200 200 Tube Feeding 325 520 Other 200 Output: Drainage 150 110 Left 150 110 Urine 1800 2800 Indwelling Catheter 1800 2800 Other: Total, Intake Amount 65 65 Total, Output Amount 100 2060 Voiding Method Indwelling Catheter Indwelling Catheter # Bowel Movements 1 General appearance: Sedated intubated HENT: Normocephalic, Atraumatic Neck: supple, tracheal midline, no JVD Lungs: Coarse breath sounds bilaterally CV: RRR no murmur Abdomen: Soft, Nondistened, incision clean/dry/intact with dressing in place Extremities: 1+ edema Skin: No rash. Psych: Sedated Neuro: Sedated - Labs Labs: Abnormal lab results 10/08/20 10/08/20 10/08/20 Range/Units 16:05 20:14 21:27 WBC (4.5-11.0) K/mm3 RBC (3.65-5.03) M/mm3 RDW (13.2-15.2) % Seg Neuts % (Manual) (40.0-70.0) % Lymphocytes % (Manual) (13.4-35.0) % Monocytes % (Manual) (0.0-7.3) % Seg Neutrophils # Man (1.8-7.7) K/mm3 Lymphocytes # (Manual) (1.2-5.4) K/mm3 Monocytes # (Manual) (0.0-0.8) K/mm3 ABG pH (7.320-7.450) POC ABG pO2 (83-108) mmHg ABG Hemoglobin (12.0-17.5) ABG Oxyhemoglobin (94-98) ABG Potassium (3.40-4.50) mmol/L ABG Chloride (98-107) mmol/L ABG Glucose (65-95) mg/dL Potassium (3.6-5.0) mmol/L Chloride (98-107) mmol/L BUN (7-17) mg/dL Creatinine (0.6-1.2) mg/dL Glucose (65-100) mg/dL POC Glucose 172 H 147 H 140 H (70-105) mg/dL Calcium (8.4-10.2) mg/dL AST (5-40) units/L ALT (7-56) units/L Total Protein (6.3-8.2) g/dL Albumin (3.9-5) g/dL Arterial Blood Glucose (65-95) mg/dL Arterial Blood Ionized Calcium (4.6-5.3) mg/dL 10/08/20 10/09/20 10/09/20 Range/Units 23:24 02:10 03:44 WBC (4.5-11.0) K/mm3 RBC (3.65-5.03) M/mm3 RDW (13.2-15.2) % Seg Neuts % (Manual) (40.0-70.0) % Lymphocytes % (Manual) (13.4-35.0) % Monocytes % (Manual) (0.0-7.3) % Seg Neutrophils # Man (1.8-7.7) K/mm3 Lymphocytes # (Manual) (1.2-5.4) K/mm3 Monocytes # (Manual) (0.0-0.8) K/mm3 ABG pH (7.320-7.450) POC ABG pO2 (83-108) mmHg ABG Hemoglobin (12.0-17.5) ABG Oxyhemoglobin (94-98) ABG Potassium (3.40-4.50) mmol/L ABG Chloride (98-107) mmol/L ABG Glucose (65-95) mg/dL Potassium (3.6-5.0) mmol/L Chloride (98-107) mmol/L BUN (7-17) mg/dL Creatinine (0.6-1.2) mg/dL Glucose (65-100) mg/dL POC Glucose 135 H 111 H 109 H (70-105) mg/dL Calcium (8.4-10.2) mg/dL AST (5-40) units/L ALT (7-56) units/L Total Protein (6.3-8.2) g/dL Albumin (3.9-5) g/dL Arterial Blood Glucose (65-95) mg/dL Arterial Blood Ionized Calcium (4.6-5.3) mg/dL 10/09/20 10/09/20 10/09/20 Range/Units 04:39 05:46 05:46 WBC 19.7 H (4.5-11.0) K/mm3 RBC 3.51 L (3.65-5.03) M/mm3 RDW 17.7 H (13.2-15.2) % Seg Neuts % (Manual) 86.0 H (40.0-70.0) % Lymphocytes % (Manual) 4.0 L (13.4-35.0) % Monocytes % (Manual) 9.0 H (0.0-7.3) % Seg Neutrophils # Man 16.9 H (1.8-7.7) K/mm3 Lymphocytes # (Manual) 0.8 L (1.2-5.4) K/mm3 Monocytes # (Manual) 1.8 H (0.0-0.8) K/mm3 ABG pH 7.513 H (7.320-7.450) POC ABG pO2 33.6 L (83-108) mmHg ABG Hemoglobin 11.1 L (12.0-17.5) ABG Oxyhemoglobin 70.2 L (94-98) ABG Potassium 3.2 L (3.40-4.50) mmol/L ABG Chloride 108.0 H (98-107) mmol/L ABG Glucose 108 H (65-95) mg/dL Potassium 3.2 L (3.6-5.0) mmol/L Chloride 108.9 H (98-107) mmol/L BUN 34 H (7-17) mg/dL Creatinine 1.4 H (0.6-1.2) mg/dL Glucose 109 H (65-100) mg/dL POC Glucose (70-105) mg/dL Calcium 7.6 L (8.4-10.2) mg/dL AST 137 H (5-40) units/L ALT 99 H (7-56) units/L Total Protein 5.1 L (6.3-8.2) g/dL Albumin 2.6 L (3.9-5) g/dL Arterial Blood Glucose 108 H (65-95) mg/dL Arterial Blood Ionized Calcium 4.3 L (4.6-5.3) mg/dL
--- NOTE | 2020-10-09 16:02 | Progress Note ---
Assessment and Plan Cultures: Blood culture: no growth A/P: 30-year-old female with GERD, hypertension, seizure disorder was admitted to the hospital at 36 weeks with seizures. She became hypoxic and pulseless requiring CPR. Following emergent section, patient developed hemorrhage, DIC. She has been admitted to ICU, remains on the vent: #Status post cardiac arrest 10/07/2020 requiring reintubation. #Shock, DIC: Secondary to hemorrhage, ?possible sepsis. Possible pneumonia versus fluid overload. #Acute kidney injury: renally dose abx. Improving. #Acute respiratory failure: remains on the vent. #Transaminitis: ?HELLP. Improving. #Preeclampsia # hemorrhage: Status post , status post supracervical hysterectomy. Recs: -Continue with IV cefepime, renally adjusted, D5 of 5 -Monitor off antibiotics, monitor leukocytosis, likely secondary to steroids -Follow EEG Violette Dejesus MD [facility] ([facility]) Office [phone] Subjective Principal diagnosis: Eclampsia/HELLP Syndrome, ADOLPH, DIC; s/p , s/p supracervical hyst Objective - Exam Narrative Exam: General appearance: Sedated intubated Eyes: anicteric sclerae, moist conjunctivae; no lid-lag; PERRLA HENT: Normocephalic, Atraumatic; normal external ears, nares open, oropharynx limited rectal tube in place Neck: supple, tracheal midline, no JVD Lungs: Coarse breath sounds bilaterally CV: RRR no murmur Abdomen: Soft, wound with dressing Extremities: no edema, no cyanosis Skin: No rash. Psych: Sedated Neuro: Sedated - Constitutional Vitals: Vital Signs Temp Pulse Resp BP Pulse Ox 99.2 F 88 29 H 143/80 97 10/09/20 12:00 10/09/20 14:41 10/09/20 14:00 10/09/20 14:41 10/09/20 14:00 Temperature -Last 24 Hours Temperature 99.2 F Temperature 99.6 F Temperature 99.3 F Temperature 99.3 F Temperature 98.8 F - Labs CBC & Chem 7: 10/09/20 05:46 10/09/20 05:46 Labs: Abnormal lab results 10/08/20 10/08/20 10/08/20 Range/Units 16:05 20:14 21:27 WBC (4.5-11.0) K/mm3 RBC (3.65-5.03) M/mm3 RDW (13.2-15.2) % Seg Neuts % (Manual) (40.0-70.0) % Lymphocytes % (Manual) (13.4-35.0) % Monocytes % (Manual) (0.0-7.3) % Seg Neutrophils # Man (1.8-7.7) K/mm3 Lymphocytes # (Manual) (1.2-5.4) K/mm3 Monocytes # (Manual) (0.0-0.8) K/mm3 ABG pH (7.320-7.450) POC ABG pO2 (83-108) mmHg ABG Hemoglobin (12.0-17.5) ABG Oxyhemoglobin (94-98) ABG Potassium (3.40-4.50) mmol/L ABG Chloride (98-107) mmol/L ABG Glucose (65-95) mg/dL Potassium (3.6-5.0) mmol/L Chloride (98-107) mmol/L BUN (7-17) mg/dL Creatinine (0.6-1.2) mg/dL Glucose (65-100) mg/dL POC Glucose 172 H 147 H 140 H (70-105) mg/dL Calcium (8.4-10.2) mg/dL AST (5-40) units/L ALT (7-56) units/L Total Protein (6.3-8.2) g/dL Albumin (3.9-5) g/dL Arterial Blood Glucose (65-95) mg/dL Arterial Blood Ionized Calcium (4.6-5.3) mg/dL 10/08/20 10/09/20 10/09/20 Range/Units 23:24 02:10 03:44 WBC (4.5-11.0) K/mm3 RBC (3.65-5.03) M/mm3 RDW (13.2-15.2) % Seg Neuts % (Manual) (40.0-70.0) % Lymphocytes % (Manual) (13.4-35.0) % Monocytes % (Manual) (0.0-7.3) % Seg Neutrophils # Man (1.8-7.7) K/mm3 Lymphocytes # (Manual) (1.2-5.4) K/mm3 Monocytes # (Manual) (0.0-0.8) K/mm3 ABG pH (7.320-7.450) POC ABG pO2 (83-108) mmHg ABG Hemoglobin (12.0-17.5) ABG Oxyhemoglobin (94-98) ABG Potassium (3.40-4.50) mmol/L ABG Chloride (98-107) mmol/L ABG Glucose (65-95) mg/dL Potassium (3.6-5.0) mmol/L Chloride (98-107) mmol/L BUN (7-17) mg/dL Creatinine (0.6-1.2) mg/dL Glucose (65-100) mg/dL POC Glucose 135 H 111 H 109 H (70-105) mg/dL Calcium (8.4-10.2) mg/dL AST (5-40) units/L ALT (7-56) units/L Total Protein (6.3-8.2) g/dL Albumin (3.9-5) g/dL Arterial Blood Glucose (65-95) mg/dL Arterial Blood Ionized Calcium (4.6-5.3) mg/dL 10/09/20 10/09/20 10/09/20 Range/Units 04:39 05:46 05:46 WBC 19.7 H (4.5-11.0) K/mm3 RBC 3.51 L (3.65-5.03) M/mm3 RDW 17.7 H (13.2-15.2) % Seg Neuts % (Manual) 86.0 H (40.0-70.0) % Lymphocytes % (Manual) 4.0 L (13.4-35.0) % Monocytes % (Manual) 9.0 H (0.0-7.3) % Seg Neutrophils # Man 16.9 H (1.8-7.7) K/mm3 Lymphocytes # (Manual) 0.8 L (1.2-5.4) K/mm3 Monocytes # (Manual) 1.8 H (0.0-0.8) K/mm3 ABG pH 7.513 H (7.320-7.450) POC ABG pO2 33.6 L (83-108) mmHg ABG Hemoglobin 11.1 L (12.0-17.5) ABG Oxyhemoglobin 70.2 L (94-98) ABG Potassium 3.2 L (3.40-4.50) mmol/L ABG Chloride 108.0 H (98-107) mmol/L ABG Glucose 108 H (65-95) mg/dL Potassium 3.2 L (3.6-5.0) mmol/L Chloride 108.9 H (98-107) mmol/L BUN 34 H (7-17) mg/dL Creatinine 1.4 H (0.6-1.2) mg/dL Glucose 109 H (65-100) mg/dL POC Glucose (70-105) mg/dL Calcium 7.6 L (8.4-10.2) mg/dL AST 137 H (5-40) units/L ALT 99 H (7-56) units/L Total Protein 5.1 L (6.3-8.2) g/dL Albumin 2.6 L (3.9-5) g/dL Arterial Blood Glucose 108 H (65-95) mg/dL Arterial Blood Ionized Calcium 4.3 L (4.6-5.3) mg/dL
--- NOTE | 2020-10-09 18:14 | Progress Note ---
Assessment and Plan Impression: * Nonoliguric acute kidney injury secondary to ischemic ATN * Cardiac arrest * Shock * Acute hypoxic respiratory failure * DIC * Anemia secondary to acute blood loss * hemorrhage * Mixed respiratory/metabolic acidosis * Presumed eclampsia * Hypokalemia, mild * Hypocalcemia * Transaminitis * Covid PUI Plan: * Renal function is stable. There is no need for renal replacement therapy at this time * Transfusion of blood products per primary team and hematology * Replete potassium to goal * Pressors prn to maintain MAP>65 * Reviewed ID note * Reviewed OB note * Strict I/O * Vent management per pulmonary/CCM * Dose medications for renal function * Avoid potential nephrotoxins * Follow-up Covid results Subjective Date of service: 10/09/20 Principal diagnosis: Eclampsia/HELLP Syndrome, ADOLPH, DIC; s/p , s/p supracervical hyst Interval history: Patient was seen for her renal issues Nursing, interdisciplinary and consult notes were reviewed Vitals, input and output, medications and labs were reviewed Reintubated following cardiac arrest Objective - Exam Narrative Exam: Deferred as patient is Covid PUI to prevent spread of infection and PPE conservation. Primary team exam reviewed. - Vital Signs Vital signs: Vital Signs - 12hr 10/09/20 10/09/20 10/09/20 06:15 06:30 06:45 Temperature Pulse Rate 83 81 83 Pulse Rate [ None] Respiratory 27 H 26 H 25 H Rate Blood Pressure 160/91 158/93 156/88 O2 Sat by Pulse 97 97 96 Oximetry 10/09/20 10/09/20 10/09/20 07:00 07:15 07:30 Temperature Pulse Rate 80 85 85 Pulse Rate [ None] Respiratory 22 25 H 26 H Rate Blood Pressure 150/89 159/87 155/90 O2 Sat by Pulse 96 96 96 Oximetry 10/09/20 10/09/20 10/09/20 07:45 08:00 08:15 Temperature 99.6 F Pulse Rate 84 84 88 Pulse Rate [ None] Respiratory 14 30 H 30 H Rate Blood Pressure 147/85 160/88 155/94 O2 Sat by Pulse 96 96 97 Oximetry 10/09/20 10/09/20 10/09/20 08:20 08:30 08:45 Temperature Pulse Rate 80 83 81 Pulse Rate [ None] Respiratory 26 H 24 Rate Blood Pressure 148/77 150/89 149/82 O2 Sat by Pulse 97 98 98 Oximetry 10/09/20 10/09/20 10/09/20 09:00 09:15 09:30 Temperature Pulse Rate 81 79 83 Pulse Rate [ None] Respiratory 25 H 23 24 Rate Blood Pressure 148/77 145/75 145/79 O2 Sat by Pulse 97 97 97 Oximetry 10/09/20 10/09/20 10/09/20 09:45 10:00 10:15 Temperature Pulse Rate 81 85 83 Pulse Rate [ None] Respiratory 25 H 27 H 26 H Rate Blood Pressure 154/84 150/77 148/81 O2 Sat by Pulse 97 97 97 Oximetry 10/09/20 10/09/20 10/09/20 10:17 10:30 10:45 Temperature Pulse Rate 87 84 79 Pulse Rate [ None] Respiratory 25 H 24 Rate Blood Pressure 148/81 142/78 137/69 O2 Sat by Pulse 97 97 Oximetry 10/09/20 10/09/20 10/09/20 11:00 11:15 11:30 Temperature Pulse Rate 80 79 79 Pulse Rate [ None] Respiratory 23 26 H 25 H Rate Blood Pressure 142/74 146/74 139/78 O2 Sat by Pulse 97 97 97 Oximetry 10/09/20 10/09/20 10/09/20 11:45 12:00 12:15 Temperature 99.2 F Pulse Rate 82 90 81 Pulse Rate [ 90 None] Respiratory 26 H 30 H 26 H Rate Blood Pressure 143/81 141/78 148/80 O2 Sat by Pulse 97 95 97 Oximetry 10/09/20 10/09/20 10/09/20 12:30 12:41 12:45 Temperature Pulse Rate 77 78 77 Pulse Rate [ None] Respiratory 25 H 27 H Rate Blood Pressure 147/76 147/76 155/79 O2 Sat by Pulse 97 97 97 Oximetry 10/09/20 10/09/20 10/09/20 13:00 13:15 13:30 Temperature Pulse Rate 80 81 81 Pulse Rate [ None] Respiratory 27 H 28 H 28 H Rate Blood Pressure 146/85 141/81 145/79 O2 Sat by Pulse 97 97 97 Oximetry 10/09/20 10/09/20 10/09/20 13:45 14:00 14:41 Temperature Pulse Rate 80 83 88 Pulse Rate [ None] Respiratory 27 H 29 H Rate Blood Pressure 150/78 146/77 143/80 O2 Sat by Pulse 97 97 Oximetry 10/09/20 17:02 Temperature Pulse Rate 82 Pulse Rate [ None] Respiratory Rate Blood Pressure 145/78 O2 Sat by Pulse 97 Oximetry - Lab 10/09/20 05:46 10/09/20 05:46 Most recent lab results ABG pH 7.513 (7.320-7.450) H 10/09/20 04:39 ABG pCO2 39.7 mm Hg 10/05/20 05:03 ABG pO2 74.3 mm Hg (80.0-90.0) L 10/05/20 05:03 ABG HCO3 27.5 mmol/L (20.0-26.0) H 10/05/20 05:03 ABG O2 Saturation 96.3 % (95.0-99.0) 10/05/20 05:03 Calcium 7.6 mg/dL (8.4-10.2) L 10/09/20 05:46 Magnesium 6.10 mg/dL (1.7-2.3) H 10/07/20 07:05 Medications & Allergies - Medications Allergies/Adverse Reactions: Allergies egg Allergy (Severe, Verified 05/22/20 16:09) Anaphylaxis NSAIDS (Non-Steroidal Anti-Inflamma Allergy (Severe, Verified 05/22/20 16:09) Unknown pt c/o Palpitations, nervous, had to take benadryl Sulfa (Sulfonamide Antibiotics) Allergy (Severe, Verified 05/22/20 16:09) Anaphylaxis SWELING,NUMBNESS ibuprofen Allergy (Intermediate, Verified 05/22/20 16:09) Bleeding latex Allergy (Verified 05/22/20 16:09) Hives plecanatide [From Trulance] Allergy (Verified 05/22/20 16:09) Anaphylaxis adhesive tape Adverse Reaction (Intermediate, Verified 05/22/20 16:09) Unknown PAPER TAPE OK metoclopramide [From Reglan] Adverse Reaction (Verified 05/22/20 16:09) Unknown Home Medications: Home Medications Medication Instructions Recorded Confirmed Last Taken Type Pantoprazole [Protonix TAB] 20 mg PO DAILY 05/10/19 08/20/20 05/10/19 05:00 History busPIRone 15 mg PO DAILY 01/15/20 08/20/20 Unknown History Albuterol Sulfate [Proventil Hfa] 6.7 gm IH Q4HR PRN #1 hfa.aer.ad 04/07/20 08/20/20 Unknown Rx Topiramate (Nf) [Trokendi XR CAP] 100 mg PO DAILY 08/20/20 08/20/20 Unknown History oxyCODONE /ACETAMINOPHEN [Percocet 1 tab PO Q6HR 08/20/20 08/20/20 Unknown History 5/325 mg] Active Medications: Generic Name Dose Route Start Last Admin Trade Name Freq PRN Reason Stop Dose Admin Acetaminophen 650 mg 10/05/20 16:34 10/05/20 16:47 Acetaminophen 325 Mg/10.15 Ml Oral Liqd Unit Dose FEEDTUBE 650 mg Q6H PRN Administration Non Cardiac Pain or Temp>100.5 Lipase/Protease/Amylase 1 each 10/05/20 11:09 Lipase 10,500/Protease 25,000/Amylase 43,750 (Units) Dr Barakat FEEDTUBE PRN PRN For Clogged Feeding Tube Buspirone HCl 15 mg 10/08/20 10:00 10/09/20 10:16 Buspirone 5 Mg Tab PO 15 mg BID ERINN Administration Famotidine 20 mg 10/07/20 10:00 10/09/20 10:16 Famotidine 20 Mg Tab PO 20 mg BID ERINN Administration Hydralazine HCl 20 mg 10/07/20 11:49 10/07/20 18:41 Hydralazine 20 Mg/1 Ml Inj IV 20 mg Q6H PRN Administration SBP >170 Hydromorphone HCl 1 mg 10/07/20 11:26 10/07/20 14:52 Hydromorphone 1 Mg/1 Ml Inj IV 1 mg Q3H PRN Administration Pain , Severe (7-10) Hydrophilic Ointment 1 applic 10/04/20 06:55 Lip Therapy Vaseline TP Q2HR PRN Dry Lips Dextrose 1,000 mls @ 75 mls/hr 10/04/20 18:50 10/09/20 17:02 D10w IV 75 mls/hr DIRECT ERINN Administration Cefepime HCl 2 gm in 100 mls @ 200 mls/hr 10/05/20 17:00 10/09/20 17:02 Cefepime/Ns 2 Gm/100 Ml IV 200 mls/hr Q12H ERINN Administration Protocol Dexmedetomidine HCl 400 mcg/ 104 mls @ 7.249 mls/hr 10/08/20 10:00 10/08/20 19:45 Sodium Chloride IV 0.1 mcg/kg/hr TITRATE ERINN 3.624 mls/hr Titration Protocol 0.2 MCG/KG/HR Labetalol HCl 100 mg 10/07/20 14:00 10/09/20 14:41 Labetalol 100 Mg Tab PO 100 mg TID ERINN Administration Lorazepam 2 mg 10/02/20 22:05 10/07/20 14:52 Lorazepam 2 Mg/Ml Vial IV 2 mg Q2H PRN Administration Seizures Multi-Ingred Cream/Lotion/Oil/Oint 1 applic 10/04/20 06:55 Mineral Oil/Petrolatum, White Ophth Oint 3.5 Gm OU Q4HR PRN Dry Eye(s) Simple Syrup 15 ml 10/05/20 11:09 Simple Syrup 15 Ml FEEDTUBE PRN PRN Hypoglycemia Simple Syrup 30 ml 10/05/20 11:09 Simple Syrup 15 Ml FEEDTUBE PRN PRN Hypoglycemia Sodium Bicarbonate 325 mg 10/05/20 11:09 Sodium Bicarbonate 325 Mg Tab FEEDTUBE PRN PRN For Clogged Feeding Tube Topiramate 50 mg 10/05/20 11:00 10/09/20 10:17 Topiramate Tab 25 Mg Tab PO 50 mg Q12HR ERINN Administration
--- NOTE | 2020-10-09 19:22 | Progress Note ---
Assessment and Plan Imp: 1. Eclampsia w/ seizures s/p 2. S/p CP arrest 3. Encephalopathy, probably anoxic 4. Morbid obesity 5. DIC 6. ADOLPH 7. Acute repsiratory failure, hypoxia Rec: 1. EEG negative for seizures, more c/w moderate to severe encephalopathy; would consider formal neurology evaluation 2. D/c Dilaudid; cont. Precedex; Benzos prn only for seizures; mentation precludes extubation; this morning's blood gas was likely mixed venous as the O2 sats at the time of collection were 96%; wean FiO2 to keep sats 88% or greater 3. F/u labs in AM; K repleted 4. TFs, SCDs, Pepcid 5. Finishing ABX per ID recs 6. Please be sure Covid-19 PCR has been obtained Poor prognosis CCt 31 minutes Subjective Date of service: 10/09/20 Principal diagnosis: Eclampsia/HELLP Syndrome, ADOLPH, DIC; s/p , s/p miller pracervical hyst Interval history: No events. Eyes open, not tracking or following commands. On ACVC 12/450/50%/+6. She cannot give history. Active Medications Acetaminophen (Acetaminophen 325 Mg/10.15 Ml Oral Liqd Unit Dose) 650 mg FEEDTUBE Q6H PRN PRN Reason: Non Cardiac Pain or Temp>100.5 Last Admin: 10/05/20 16:47 Dose: 650 mg Documented by: Lipase/Protease/Amylase (Lipase 10,500/Protease 25,000/Amylase 43,750 (Units) Dr Barakat) 1 each FEEDTUBE PRN PRN PRN Reason: For Clogged Feeding Tube Buspirone HCl (Buspirone 5 Mg Tab) 15 mg PO BID [facility] Last Admin: 10/09/20 10:16 Dose: 15 mg Documented by: Famotidine (Famotidine 20 Mg Tab) 20 mg PO BID [facility] Last Admin: 10/09/20 10:16 Dose: 20 mg Documented by: Hydralazine HCl (Hydralazine 20 Mg/1 Ml Inj) 20 mg IV Q6H PRN PRN Reason: SBP >170 Last Admin: 10/07/20 18:41 Dose: 20 mg Documented by: Hydrophilic Ointment (Lip Therapy Vaseline) 1 applic TP Q2HR PRN PRN Reason: Dry Lips Dextrose (D10w) 1,000 mls @ 75 mls/hr IV DIRECT ERINN Last Admin: 10/09/20 17:02 Dose: 75 mls/hr Documented by: Cefepime HCl (Cefepime/Ns 2 Gm/100 Ml) 2 gm in 100 mls @ 200 mls/hr IV Q12H ERINN; Protocol Last Admin: 10/09/20 17:02 Dose: 200 mls/hr Documented by: Dexmedetomidine HCl 400 mcg/ (Sodium Chloride) 104 mls @ 7.249 mls/hr IV TITRATE ERINN; Protocol Last Titration: 10/08/20 19:45 Dose: 0.1 mcg/kg/hr, 3.624 mls/hr Documented by: Labetalol HCl (Labetalol 100 Mg Tab) 100 mg PO TID ERINN Last Admin: 10/09/20 14:41 Dose: 100 mg Documented by: Lorazepam (Lorazepam 2 Mg/Ml Vial) 2 mg IV Q2H PRN PRN Reason: Seizures Last Admin: 10/07/20 14:52 Dose: 2 mg Documented by: Multi-Ingred Cream/Lotion/Oil/Oint (Mineral Oil/Petrolatum, White Ophth Oint 3.5 Gm) 1 applic OU Q4HR PRN PRN Reason: Dry Eye(s) Simple Syrup (Simple Syrup 15 Ml) 15 ml FEEDTUBE PRN PRN PRN Reason: Hypoglycemia Simple Syrup (Simple Syrup 15 Ml) 30 ml FEEDTUBE PRN PRN PRN Reason: Hypoglycemia Sodium Bicarbonate (Sodium Bicarbonate 325 Mg Tab) 325 mg FEEDTUBE PRN PRN PRN Reason: For Clogged Feeding Tube Topiramate (Topiramate Tab 25 Mg Tab) 50 mg PO Q12HR ERINN Last Admin: 10/09/20 10:17 Dose: 50 mg Documented by: Objective Vital Signs - 12hr 10/09/20 10/09/20 10/09/20 07:30 07:45 08:00 Temperature 99.6 F Pulse Rate 85 84 84 Pulse Rate [ None] Respiratory 26 H 14 30 H Rate Blood Pressure 155/90 147/85 160/88 O2 Sat by Pulse 96 96 96 Oximetry 10/09/20 10/09/20 10/09/20 08:15 08:20 08:30 Temperature Pulse Rate 88 80 83 Pulse Rate [ None] Respiratory 30 H 26 H Rate Blood Pressure 155/94 148/77 150/89 O2 Sat by Pulse 97 97 98 Oximetry 10/09/20 10/09/20 10/09/20 08:45 09:00 09:15 Temperature Pulse Rate 81 81 79 Pulse Rate [ None] Respiratory 24 25 H 23 Rate Blood Pressure 149/82 148/77 145/75 O2 Sat by Pulse 98 97 97 Oximetry 10/09/20 10/09/20 10/09/20 09:30 09:45 10:00 Temperature Pulse Rate 83 81 85 Pulse Rate [ None] Respiratory 24 25 H 27 H Rate Blood Pressure 145/79 154/84 150/77 O2 Sat by Pulse 97 97 97 Oximetry 10/09/20 10/09/20 10/09/20 10:15 10:17 10:30 Temperature Pulse Rate 83 87 84 Pulse Rate [ None] Respiratory 26 H 25 H Rate Blood Pressure 148/81 148/81 142/78 O2 Sat by Pulse 97 97 Oximetry 10/09/20 10/09/20 10/09/20 10:45 11:00 11:15 Temperature Pulse Rate 79 80 79 Pulse Rate [ None] Respiratory 24 23 26 H Rate Blood Pressure 137/69 142/74 146/74 O2 Sat by Pulse 97 97 97 Oximetry 10/09/20 10/09/20 10/09/20 11:30 11:45 12:00 Temperature 99.2 F Pulse Rate 79 82 90 Pulse Rate [ 90 None] Respiratory 25 H 26 H 30 H Rate Blood Pressure 139/78 143/81 141/78 O2 Sat by Pulse 97 97 95 Oximetry 10/09/20 10/09/20 10/09/20 12:15 12:30 12:41 Temperature Pulse Rate 81 77 78 Pulse Rate [ None] Respiratory 26 H 25 H Rate Blood Pressure 148/80 147/76 147/76 O2 Sat by Pulse 97 97 97 Oximetry 10/09/20 10/09/20 10/09/20 12:45 13:00 13:15 Temperature Pulse Rate 77 80 81 Pulse Rate [ None] Respiratory 27 H 27 H 28 H Rate Blood Pressure 155/79 146/85 141/81 O2 Sat by Pulse 97 97 97 Oximetry 10/09/20 10/09/20 10/09/20 13:30 13:45 14:00 Temperature Pulse Rate 81 80 83 Pulse Rate [ None] Respiratory 28 H 27 H 29 H Rate Blood Pressure 145/79 150/78 146/77 O2 Sat by Pulse 97 97 97 Oximetry 10/09/20 10/09/20 10/09/20 14:15 14:30 14:41 Temperature Pulse Rate 83 87 88 Pulse Rate [ None] Respiratory 27 H 28 H Rate Blood Pressure 150/81 143/80 143/80 O2 Sat by Pulse 97 97 Oximetry 10/09/20 10/09/20 10/09/20 14:45 15:00 15:15 Temperature Pulse Rate 88 82 81 Pulse Rate [ None] Respiratory 29 H 26 H 25 H Rate Blood Pressure 138/78 142/78 145/80 O2 Sat by Pulse 98 98 98 Oximetry 10/09/20 10/09/20 10/09/20 15:30 15:45 16:00 Temperature 99.5 F Pulse Rate 82 82 81 Pulse Rate [ None] Respiratory 28 H 25 H 25 H Rate Blood Pressure 141/82 140/77 142/79 O2 Sat by Pulse 98 97 97 Oximetry 10/09/20 10/09/20 10/09/20 16:15 16:30 16:45 Temperature Pulse Rate 82 80 79 Pulse Rate [ None] Respiratory 25 H 21 26 H Rate Blood Pressure 142/79 139/74 137/73 O2 Sat by Pulse 97 97 97 Oximetry 10/09/20 10/09/20 10/09/20 17:00 17:02 17:15 Temperature Pulse Rate 82 82 93 H Pulse Rate [ None] Respiratory 26 H 24 Rate Blood Pressure 145/78 145/78 145/78 O2 Sat by Pulse 97 97 96 Oximetry 10/09/20 10/09/20 10/09/20 17:31 17:45 18:00 Temperature Pulse Rate 80 80 80 Pulse Rate [ None] Respiratory 27 H 27 H 27 H Rate Blood Pressure 157/82 157/82 164/86 O2 Sat by Pulse 96 97 96 Oximetry 10/09/20 10/09/20 10/09/20 18:15 18:30 18:45 Temperature Pulse Rate 83 77 77 Pulse Rate [ None] Respiratory 27 H 24 25 H Rate Blood Pressure 161/89 157/92 167/94 O2 Sat by Pulse 96 96 97 Oximetry Constitutional: comatose Eyes: non-icteric ENT: oropharynx moist, other (orally intubated and not sedated) Neck: other (large in cirumference) Effort: normal Ascultation: Bilateral: diminished breath sounds Cardiovascular: regular rate and rhythm, other (no mrg) Gastrointestinal: normoactive bowel sounds, soft, other (post surgical changes with drain on the left side) Extremities: no cyanosis, pink and warm, anasarca Neurologic: other (eyes open, not tracking, not following commands, not moving extremities) Psychiatric: other (unable to assess) CBC and BMP: 10/09/20 05:46 10/09/20 05:46 ABG, PT/INR, D-dimer: ABG ABG pH 7.513 (7.320-7.450) H 10/09/20 04:39 POC ABG pCO2 33.1 mmHg (32.0-48.0) 10/09/20 04:39 ABG pCO2 39.7 mm Hg 10/05/20 05:03 POC ABG pO2 33.6 mmHg (83-108) L 10/09/20 04:39 ABG pO2 74.3 mm Hg (80.0-90.0) L 10/05/20 05:03 POC ABG HCO3 26 10/09/20 04:39 ABG O2 Saturation 96.3 % (95.0-99.0) 10/05/20 05:03 PT/INR, D-dimer PT 13.0 Sec. (12.2-14.9) 10/05/20 05:00 INR 1.00 (0.87-1.13) 10/05/20 05:00 D-Dimer > 18228 ng/mlDDU (0-234) H 10/04/20 10:00 Abnormal lab findings: Abnormal Labs 10/02/20 10/02/20 10/02/20 12:03 12:18 12:18 WBC 14.9 H RBC Hgb 9.1 L Hct MCV MCH 22 L MCHC 28 L RDW 17.6 H Plt Count 102 L Lymph % (Auto) Lymph # (Auto) [place] # (Auto) Seg Neutrophils % Seg Neuts % (Manual) 36.0 L Lymphocytes % (Manual) 49.0 H Monocytes % (Manual) Nucleated RBC % 6.0 H Seg Neutrophils # Seg Neutrophils # Man Lymphocytes # (Manual) 7.3 H Monocytes # (Manual) PT INR APTT Fibrinogen D-Dimer ABG pH POC ABG pCO2 POC ABG pO2 ABG pO2 ABG HCO3 ABG Base Excess ABG Hemoglobin ABG Oxyhemoglobin ABG Sodium ABG Potassium ABG Chloride ABG Glucose VBG pH Oxyhemoglobin Carboxyhemoglobin Sodium 134 L Potassium Chloride Carbon Dioxide 12 L BUN 6 L Creatinine Glucose 390 H POC Glucose 451 H Lactic Acid Calcium Ionized Calcium Magnesium AST 135 H ALT 85 H Alkaline Phosphatase 172 H Lactate Dehydrogenase 641 H NT-Pro-B Natriuret Pep Total Protein 5.4 L Albumin 2.3 L Arterial Blood Glucose Arterial Blood Ionized Calcium Crossmatch 10/02/20 10/02/20 10/02/20 12:50 13:05 13:05 WBC 38.6 H RBC Hgb 8.9 L Hct 29.0 L MCV 73 L MCH 22 L MCHC RDW 17.2 H Plt Count Lymph % (Auto) Lymph # (Auto) [place] # (Auto) Seg Neutrophils % Seg Neuts % (Manual) Lymphocytes % (Manual) Monocytes % (Manual) Nucleated RBC % 2.0 H Seg Neutrophils # Seg Neutrophils # Man 20.1 H Lymphocytes # (Manual) 10.4 H Monocytes # (Manual) 2.3 H PT INR APTT Fibrinogen D-Dimer ABG pH POC ABG pCO2 POC ABG pO2 ABG pO2 ABG HCO3 ABG Base Excess ABG Hemoglobin ABG Oxyhemoglobin ABG Sodium ABG Potassium ABG Chloride ABG Glucose VBG pH Oxyhemoglobin Carboxyhemoglobin Sodium Potassium Chloride Carbon Dioxide BUN Creatinine Glucose POC Glucose Lactic Acid Calcium Ionized Calcium Magnesium AST 184 H ALT 113 H Alkaline Phosphatase Lactate Dehydrogenase 769 H NT-Pro-B Natriuret Pep Total Protein Albumin Arterial Blood Glucose Arterial Blood Ionized Calcium Crossmatch See Detail 10/02/20 10/02/20 10/02/20 16:25 16:35 16:35 WBC RBC Hgb Hct MCV MCH MCHC RDW Plt Count Lymph % (Auto) Lymph # (Auto) [place] # (Auto) Seg Neutrophils % Seg Neuts % (Manual) Lymphocytes % (Manual) Monocytes % (Manual) Nucleated RBC % Seg Neutrophils # Seg Neutrophils # Man Lymphocytes # (Manual) Monocytes # (Manual) PT INR APTT Fibrinogen D-Dimer ABG pH 7.031 L* POC ABG pCO2 POC ABG pO2 ABG pO2 116.8 H ABG HCO3 12.7 L ABG Base Excess -16.9 L ABG Hemoglobin 7.8 L ABG Oxyhemoglobin ABG Sodium ABG Potassium ABG Chloride ABG Glucose VBG pH Oxyhemoglobin 94.9 L Carboxyhemoglobin Sodium Potassium Chloride Carbon Dioxide BUN Creatinine Glucose 403 H POC Glucose Lactic Acid 11.40 H* Calcium 6.3 L D Ionized Calcium Magnesium AST 70 H ALT Alkaline Phosphatase Lactate Dehydrogenase NT-Pro-B Natriuret Pep Total Protein 1.9 L D Albumin 1.2 L Arterial Blood Glucose Arterial Blood Ionized Calcium Crossmatch 10/02/20 10/02/20 10/02/20 18:18 18:18 22:30 WBC 11.5 H RBC 2.06 L Hgb 5.5 L* D Hct 17.3 L* D MCV MCH 27 L MCHC RDW 19.5 H Plt Count 60 L Lymph % (Auto) Lymph # (Auto) [place] # (Auto) Seg Neutrophils % Seg Neuts % (Manual) Lymphocytes % (Manual) 8.0 L Monocytes % (Manual) 8.0 H Nucleated RBC % 8.0 H Seg Neutrophils # Seg Neutrophils # Man Lymphocytes # (Manual) 0.9 L Monocytes # (Manual) 0.9 H PT 37.1 H INR 3.71 H APTT 135.8 H* Fibrinogen D-Dimer ABG pH 7.067 L* POC ABG pCO2 POC ABG pO2 ABG pO2 183.0 H ABG HCO3 14.1 L ABG Base Excess -15.1 L ABG Hemoglobin 7.7 L ABG Oxyhemoglobin ABG Sodium ABG Potassium ABG Chloride ABG Glucose VBG pH Oxyhemoglobin Carboxyhemoglobin Sodium Potassium Chloride Carbon Dioxide BUN Creatinine Glucose POC Glucose Lactic Acid Calcium Ionized Calcium Magnesium AST ALT Alkaline Phosphatase Lactate Dehydrogenase NT-Pro-B Natriuret Pep Total Protein Albumin Arterial Blood Glucose Arterial Blood Ionized Calcium Crossmatch 10/02/20 10/02/20 10/03/20 Unknown Unknown 00:01 WBC RBC Hgb Hct MCV MCH MCHC RDW Plt Count Lymph % (Auto) Lymph # (Auto) [place] # (Auto) Seg Neutrophils % Seg Neuts % (Manual) Lymphocytes % (Manual) Monocytes % (Manual) Nucleated RBC % Seg Neutrophils # Seg Neutrophils # Man Lymphocytes # (Manual) Monocytes # (Manual) PT 61.1 H INR 6.92 H* APTT 158.7 H* Fibrinogen < 60 L* D-Dimer > 25824 H ABG pH POC ABG pCO2 POC ABG pO2 ABG pO2 ABG HCO3 ABG Base Excess ABG Hemoglobin ABG Oxyhemoglobin ABG Sodium ABG Potassium ABG Chloride ABG Glucose VBG pH 6.949 L* Oxyhemoglobin Carboxyhemoglobin Sodium Potassium Chloride Carbon Dioxide BUN Creatinine Glucose POC Glucose 196 H Lactic Acid Calcium Ionized Calcium Magnesium AST ALT Alkaline Phosphatase Lactate Dehydrogenase NT-Pro-B Natriuret Pep Total Protein Albumin Arterial Blood Glucose Arterial Blood Ionized Calcium Crossmatch 10/03/20 10/03/20 10/03/20 00:40 00:40 00:40 WBC RBC Hgb Hct MCV MCH MCHC RDW Plt Count Lymph % (Auto) Lymph # (Auto) [place] # (Auto) Seg Neutrophils % Seg Neuts % (Manual) Lymphocytes % (Manual) Monocytes % (Manual) Nucleated RBC % Seg Neutrophils # Seg Neutrophils # Man Lymphocytes # (Manual) Monocytes # (Manual) PT 15.1 H INR 1.21 H APTT Fibrinogen D-Dimer ABG pH POC ABG pCO2 POC ABG pO2 ABG pO2 ABG HCO3 ABG Base Excess ABG Hemoglobin ABG Oxyhemoglobin ABG Sodium ABG Potassium ABG Chloride ABG Glucose VBG pH Oxyhemoglobin Carboxyhemoglobin Sodium 136 L Potassium Chloride Carbon Dioxide BUN Creatinine 1.6 H D Glucose 106 H POC Glucose Lactic Acid 5.60 H* Calcium 6.5 L Ionized Calcium Magnesium AST 232 H ALT 104 H Alkaline Phosphatase Lactate Dehydrogenase NT-Pro-B Natriuret Pep Total Protein 3.9 L D Albumin 2.4 L Arterial Blood Glucose Arterial Blood Ionized Calcium Crossmatch 10/03/20 10/03/20 10/03/20 02:08 02:08 02:08 WBC 17.6 H RBC 3.27 L Hgb 9.9 L D Hct 29.9 L D MCV MCH MCHC RDW 16.5 H Plt Count 75 L Lymph % (Auto) Lymph # (Auto) [place] # (Auto) Seg Neutrophils % Seg Neuts % (Manual) 76.0 H Lymphocytes % (Manual) Monocytes % (Manual) Nucleated RBC % 8.0 H Seg Neutrophils # Seg Neutrophils # Man 13.4 H Lymphocytes # (Manual) Monocytes # (Manual) PT INR APTT Fibrinogen D-Dimer ABG pH POC ABG pCO2 POC ABG pO2 ABG pO2 ABG HCO3 ABG Base Excess ABG Hemoglobin ABG Oxyhemoglobin ABG Sodium ABG Potassium ABG Chloride ABG Glucose VBG pH Oxyhemoglobin Carboxyhemoglobin Sodium Potassium Chloride Carbon Dioxide 19 L BUN Creatinine 1.4 H Glucose 306 H POC Glucose Lactic Acid 10.50 H* Calcium 6.4 L Ionized Calcium Magnesium AST ALT Alkaline Phosphatase Lactate Dehydrogenase NT-Pro-B Natriuret Pep Total Protein Albumin Arterial Blood Glucose Arterial Blood Ionized Calcium Crossmatch 10/03/20 10/03/20 10/03/20 02:42 03:59 05:31 WBC RBC Hgb Hct MCV MCH MCHC RDW Plt Count Lymph % (Auto) Lymph # (Auto) [place] # (Auto) Seg Neutrophils % Seg Neuts % (Manual) Lymphocytes % (Manual) Monocytes % (Manual) Nucleated RBC % Seg Neutrophils # Seg Neutrophils # Man Lymphocytes # (Manual) Monocytes # (Manual) PT INR APTT Fibrinogen D-Dimer ABG pH 7.144 L POC ABG pCO2 54.4 H POC ABG pO2 ABG pO2 ABG HCO3 ABG Base Excess ABG Hemoglobin 10.0 L ABG Oxyhemoglobin ABG Sodium ABG Potassium ABG Chloride 108.0 H ABG Glucose 306 H VBG pH Oxyhemoglobin Carboxyhemoglobin Sodium Potassium Chloride Carbon Dioxide BUN Creatinine Glucose POC Glucose 209 H Lactic Acid 9.20 H* Calcium Ionized Calcium Magnesium AST ALT Alkaline Phosphatase Lactate Dehydrogenase NT-Pro-B Natriuret Pep Total Protein Albumin Arterial Blood Glucose 306 H Arterial Blood Ionized Calcium 3.7 L Crossmatch 10/03/20 10/03/20 10/03/20 09:00 09:00 09:00 WBC 27.4 H RBC 2.84 L Hgb 8.5 L Hct 25.1 L MCV MCH MCHC RDW 16.1 H Plt Count 72 L Lymph % (Auto) Lymph # (Auto) [place] # (Auto) Seg Neutrophils % Seg Neuts % (Manual) Lymphocytes % (Manual) 11.0 L Monocytes % (Manual) Nucleated RBC % 3.0 H Seg Neutrophils # Seg Neutrophils # Man 18.4 H Lymphocytes # (Manual) Monocytes # (Manual) 1.9 H PT INR APTT Fibrinogen D-Dimer ABG pH POC ABG pCO2 POC ABG pO2 ABG pO2 ABG HCO3 ABG Base Excess ABG Hemoglobin ABG Oxyhemoglobin ABG Sodium ABG Potassium ABG Chloride ABG Glucose VBG pH Oxyhemoglobin Carboxyhemoglobin Sodium Potassium Chloride Carbon Dioxide BUN Creatinine 1.7 H Glucose 216 H POC Glucose Lactic Acid 9.20 H* Calcium 6.3 L Ionized Calcium Magnesium AST 331 H ALT 171 H Alkaline Phosphatase Lactate Dehydrogenase NT-Pro-B Natriuret Pep Total Protein 3.7 L Albumin 1.9 L Arterial Blood Glucose Arterial Blood Ionized Calcium Crossmatch 10/03/20 10/03/20 10/03/20 11:20 11:46 11:50 WBC 28.7 H RBC 2.67 L Hgb 8.0 L Hct 23.7 L MCV MCH MCHC RDW 16.6 H Plt Count 76 L Lymph % (Auto) Lymph # (Auto) [place] # (Auto) Seg Neutrophils % Seg Neuts % (Manual) Lymphocytes % (Manual) Monocytes % (Manual) Nucleated RBC % Seg Neutrophils # Seg Neutrophils # Man Lymphocytes # (Manual) Monocytes # (Manual) PT INR APTT Fibrinogen D-Dimer ABG pH POC ABG pCO2 POC ABG pO2 ABG pO2 ABG HCO3 ABG Base Excess ABG Hemoglobin ABG Oxyhemoglobin ABG Sodium ABG Potassium ABG Chloride ABG Glucose VBG pH Oxyhemoglobin Carboxyhemoglobin Sodium Potassium Chloride Carbon Dioxide BUN Creatinine Glucose POC Glucose 125 H Lactic Acid 8.00 H* Calcium Ionized Calcium Magnesium AST ALT Alkaline Phosphatase Lactate Dehydrogenase NT-Pro-B Natriuret Pep Total Protein Albumin Arterial Blood Glucose Arterial Blood Ionized Calcium Crossmatch 10/03/20 10/04/20 10/04/20 11:50 00:40 00:40 WBC RBC Hgb 6.8 L Hct 19.4 L* MCV MCH MCHC RDW Plt Count 49 L Lymph % (Auto) Lymph # (Auto) [place] # (Auto) Seg Neutrophils % Seg Neuts % (Manual) Lymphocytes % (Manual) Monocytes % (Manual) Nucleated RBC % Seg Neutrophils # Seg Neutrophils # Man Lymphocytes # (Manual) Monocytes # (Manual) PT INR APTT Fibrinogen D-Dimer ABG pH 7.244 L POC ABG pCO2 POC ABG pO2 ABG pO2 ABG HCO3 ABG Base Excess -4.5 L ABG Hemoglobin 7.3 L ABG Oxyhemoglobin ABG Sodium ABG Potassium ABG Chloride ABG Glucose VBG pH Oxyhemoglobin Carboxyhemoglobin Sodium Potassium Chloride Carbon Dioxide BUN Creatinine Glucose POC Glucose Lactic Acid Calcium Ionized Calcium Magnesium AST ALT Alkaline Phosphatase Lactate Dehydrogenase NT-Pro-B Natriuret Pep Total Protein Albumin Arterial Blood Glucose Arterial Blood Ionized Calcium Crossmatch 10/04/20 10/04/20 10/04/20 03:53 10:00 10:00 WBC 14.6 H RBC 2.57 L Hgb 7.6 L Hct 22.5 L MCV MCH MCHC RDW 15.8 H Plt Count 38 L Lymph % (Auto) 7.7 L Lymph # (Auto) 1.1 L [place] # (Auto) 0.9 H Seg Neutrophils % 85.6 H Seg Neuts % (Manual) Lymphocytes % (Manual) Monocytes % (Manual) Nucleated RBC % Seg Neutrophils # 12.5 H Seg Neutrophils # Man Lymphocytes # (Manual) Monocytes # (Manual) PT INR APTT Fibrinogen D-Dimer ABG pH POC ABG pCO2 POC ABG pO2 110.6 H ABG pO2 ABG HCO3 ABG Base Excess ABG Hemoglobin 6.7 L ABG Oxyhemoglobin ABG Sodium 132.0 L ABG Potassium ABG Chloride ABG Glucose 111 H VBG pH Oxyhemoglobin Carboxyhemoglobin Sodium 134 L D Potassium Chloride 97.6 L Carbon Dioxide BUN Creatinine 1.7 H Glucose POC Glucose Lactic Acid Calcium 6.3 L Ionized Calcium Magnesium AST 203 H ALT 81 H Alkaline Phosphatase Lactate Dehydrogenase NT-Pro-B Natriuret Pep Total Protein 3.9 L Albumin 2.3 L Arterial Blood Glucose 111 H Arterial Blood Ionized Calcium 3.5 L Crossmatch 10/04/20 10/04/20 10/04/20 10:00 10:00 10:14 WBC RBC Hgb Hct MCV MCH MCHC RDW Plt Count Lymph % (Auto) Lymph # (Auto) [place] # (Auto) Seg Neutrophils % Seg Neuts % (Manual) Lymphocytes % (Manual) Monocytes % (Manual) Nucleated RBC % Seg Neutrophils # Seg Neutrophils # Man Lymphocytes # (Manual) Monocytes # (Manual) PT INR APTT Fibrinogen D-Dimer > 56916 H ABG pH POC ABG pCO2 POC ABG pO2 ABG pO2 ABG HCO3 ABG Base Excess ABG Hemoglobin ABG Oxyhemoglobin ABG Sodium ABG Potassium ABG Chloride ABG Glucose VBG pH Oxyhemoglobin Carboxyhemoglobin Sodium Potassium Chloride Carbon Dioxide BUN Creatinine Glucose POC Glucose Lactic Acid 3.90 H* Calcium Ionized Calcium Magnesium AST ALT Alkaline Phosphatase Lactate Dehydrogenase NT-Pro-B Natriuret Pep 2788 H Total Protein Albumin Arterial Blood Glucose Arterial Blood Ionized Calcium Crossmatch 10/04/20 10/04/20 10/04/20 14:00 14:00 18:00 WBC 15.7 H RBC 3.17 L Hgb 9.3 L 9.6 L Hct 27.2 L 28.0 L MCV MCH MCHC RDW 16.9 H Plt Count 41 L Lymph % (Auto) 8.6 L Lymph # (Auto) [place] # (Auto) 0.9 H Seg Neutrophils % 85.4 H Seg Neuts % (Manual) Lymphocytes % (Manual) Monocytes % (Manual) Nucleated RBC % Seg Neutrophils # 13.4 H Seg Neutrophils # Man Lymphocytes # (Manual) Monocytes # (Manual) PT INR APTT Fibrinogen D-Dimer ABG pH POC ABG pCO2 POC ABG pO2 ABG pO2 ABG HCO3 ABG Base Excess ABG Hemoglobin ABG Oxyhemoglobin ABG Sodium ABG Potassium ABG Chloride ABG Glucose VBG pH Oxyhemoglobin Carboxyhemoglobin Sodium 133 L Potassium Chloride 96.4 L Carbon Dioxide BUN 18 H Creatinine 1.7 H Glucose POC Glucose Lactic Acid Calcium 6.3 L Ionized Calcium Magnesium AST ALT Alkaline Phosphatase Lactate Dehydrogenase NT-Pro-B Natriuret Pep Total Protein Albumin Arterial Blood Glucose Arterial Blood Ionized Calcium Crossmatch 10/04/20 10/04/20 10/05/20 18:00 22:00 05:00 WBC 17.6 H RBC 3.34 L Hgb 9.9 L Hct 29.4 L MCV MCH MCHC RDW 17.1 H Plt Count 56 L Lymph % (Auto) 8.5 L Lymph # (Auto) [place] # (Auto) 1.0 H Seg Neutrophils % 85.1 H Seg Neuts % (Manual) Lymphocytes % (Manual) Monocytes % (Manual) Nucleated RBC % Seg Neutrophils # 15.0 H Seg Neutrophils # Man Lymphocytes # (Manual) Monocytes # (Manual) PT INR APTT Fibrinogen D-Dimer ABG pH POC ABG pCO2 POC ABG pO2 ABG pO2 ABG HCO3 ABG Base Excess ABG Hemoglobin ABG Oxyhemoglobin ABG Sodium ABG Potassium ABG Chloride ABG Glucose VBG pH Oxyhemoglobin Carboxyhemoglobin Sodium 136 L Potassium Chloride Carbon Dioxide BUN 18 H Creatinine 1.7 H Glucose POC Glucose Lactic Acid 2.30 H* Calcium 6.6 L Ionized Calcium Magnesium AST ALT Alkaline Phosphatase Lactate Dehydrogenase NT-Pro-B Natriuret Pep Total Protein Albumin Arterial Blood Glucose Arterial Blood Ionized Calcium Crossmatch 10/05/20 10/05/20 10/05/20 05:00 05:00 05:03 WBC RBC Hgb Hct MCV MCH MCHC RDW Plt Count Lymph % (Auto) Lymph # (Auto) [place] # (Auto) Seg Neutrophils % Seg Neuts % (Manual) Lymphocytes % (Manual) Monocytes % (Manual) Nucleated RBC % Seg Neutrophils # Seg Neutrophils # Man Lymphocytes # (Manual) Monocytes # (Manual) PT INR APTT Fibrinogen D-Dimer ABG pH 7.458 H POC ABG pCO2 POC ABG pO2 ABG pO2 74.3 L ABG HCO3 27.5 H ABG Base Excess 3.4 H ABG Hemoglobin 10.0 L ABG Oxyhemoglobin ABG Sodium ABG Potassium ABG Chloride ABG Glucose VBG pH Oxyhemoglobin 94.9 L Carboxyhemoglobin Sodium Potassium Chloride Carbon Dioxide BUN 19 H Creatinine 1.8 H Glucose POC Glucose Lactic Acid Calcium 6.8 L Ionized Calcium 3.9 L Magnesium AST 225 H ALT 85 H Alkaline Phosphatase Lactate Dehydrogenase NT-Pro-B Natriuret Pep Total Protein 4.5 L Albumin 2.7 L Arterial Blood Glucose Arterial Blood Ionized Calcium Crossmatch 10/05/20 10/05/20 10/05/20 10:10 15:00 19:40 WBC RBC Hgb Hct MCV MCH MCHC RDW Plt Count Lymph % (Auto) Lymph # (Auto) [place] # (Auto) Seg Neutrophils % Seg Neuts % (Manual) Lymphocytes % (Manual) Monocytes % (Manual) Nucleated RBC % Seg Neutrophils # Seg Neutrophils # Man Lymphocytes # (Manual) Monocytes # (Manual) PT INR APTT Fibrinogen D-Dimer ABG pH POC ABG pCO2 POC ABG pO2 ABG pO2 ABG HCO3 ABG Base Excess ABG Hemoglobin ABG Oxyhemoglobin ABG Sodium ABG Potassium ABG Chloride ABG Glucose VBG pH Oxyhemoglobin Carboxyhemoglobin Sodium Potassium 3.5 L Chloride Carbon Dioxide 31 H 32 H BUN 19 H 19 H Creatinine 1.8 H 1.8 H Glucose POC Glucose Lactic Acid Calcium 7.0 L 7.2 L Ionized Calcium Magnesium 2.90 H AST ALT Alkaline Phosphatase Lactate Dehydrogenase NT-Pro-B Natriuret Pep Total Protein Albumin Arterial Blood Glucose Arterial Blood Ionized Calcium Crossmatch 10/06/20 10/06/20 10/06/20 01:05 03:12 04:00 WBC 17.1 H RBC 3.47 L Hgb Hct MCV MCH MCHC RDW 17.4 H Plt Count 82 L Lymph % (Auto) 8.3 L Lymph # (Auto) [place] # (Auto) 1.1 H Seg Neutrophils % 83.8 H Seg Neuts % (Manual) Lymphocytes % (Manual) Monocytes % (Manual) Nucleated RBC % Seg Neutrophils # 14.3 H Seg Neutrophils # Man Lymphocytes # (Manual) Monocytes # (Manual) PT INR APTT Fibrinogen D-Dimer ABG pH 7.474 H POC ABG pCO2 POC ABG pO2 129.5 H ABG pO2 ABG HCO3 ABG Base Excess ABG Hemoglobin 11.4 L ABG Oxyhemoglobin ABG Sodium 131.8 L ABG Potassium ABG Chloride ABG Glucose 103 H VBG pH Oxyhemoglobin Carboxyhemoglobin 0.3 L Sodium Potassium Chloride Carbon Dioxide BUN Creatinine Glucose POC Glucose Lactic Acid Calcium Ionized Calcium Magnesium 3.70 H AST ALT Alkaline Phosphatase Lactate Dehydrogenase NT-Pro-B Natriuret Pep Total Protein Albumin Arterial Blood Glucose 103 H Arterial Blood Ionized Calcium 4.2 L Crossmatch 10/06/20 10/06/20 10/06/20 04:00 05:31 08:12 WBC RBC Hgb Hct MCV MCH MCHC RDW Plt Count Lymph % (Auto) Lymph # (Auto) [place] # (Auto) Seg Neutrophils % Seg Neuts % (Manual) Lymphocytes % (Manual) Monocytes % (Manual) Nucleated RBC % Seg Neutrophils # Seg Neutrophils # Man Lymphocytes # (Manual) Monocytes # (Manual) PT INR APTT Fibrinogen D-Dimer ABG pH POC ABG pCO2 POC ABG pO2 ABG pO2 ABG HCO3 ABG Base Excess ABG Hemoglobin ABG Oxyhemoglobin ABG Sodium ABG Potassium ABG Chloride ABG Glucose VBG pH Oxyhemoglobin Carboxyhemoglobin Sodium Potassium 3.5 L Chloride Carbon Dioxide BUN 19 H Creatinine 1.8 H Glucose 102 H POC Glucose 116 H Lactic Acid Calcium 7.2 L Ionized Calcium Magnesium 5.40 H AST 307 H ALT 137 H Alkaline Phosphatase Lactate Dehydrogenase NT-Pro-B Natriuret Pep Total Protein 4.5 L Albumin 2.6 L Arterial Blood Glucose Arterial Blood Ionized Calcium Crossmatch 10/06/20 10/06/20 10/06/20 11:00 11:50 20:13 WBC RBC Hgb Hct MCV MCH MCHC RDW Plt Count Lymph % (Auto) Lymph # (Auto) [place] # (Auto) Seg Neutrophils % Seg Neuts % (Manual) Lymphocytes % (Manual) Monocytes % (Manual) Nucleated RBC % Seg Neutrophils # Seg Neutrophils # Man Lymphocytes # (Manual) Monocytes # (Manual) PT INR APTT Fibrinogen D-Dimer ABG pH POC ABG pCO2 POC ABG pO2 ABG pO2 ABG HCO3 ABG Base Excess ABG Hemoglobin ABG Oxyhemoglobin ABG Sodium ABG Potassium ABG Chloride ABG Glucose VBG pH Oxyhemoglobin Carboxyhemoglobin Sodium Potassium Chloride Carbon Dioxide BUN Creatinine Glucose POC Glucose 106 H Lactic Acid Calcium Ionized Calcium Magnesium 6.50 H 6.20 H AST ALT Alkaline Phosphatase Lactate Dehydrogenase NT-Pro-B Natriuret Pep Total Protein Albumin Arterial Blood Glucose Arterial Blood Ionized Calcium Crossmatch 10/06/20 10/06/20 10/06/20 20:17 22:29 23:57 WBC RBC Hgb Hct MCV MCH MCHC RDW Plt Count Lymph % (Auto) Lymph # (Auto) [place] # (Auto) Seg Neutrophils % Seg Neuts % (Manual) Lymphocytes % (Manual) Monocytes % (Manual) Nucleated RBC % Seg Neutrophils # Seg Neutrophils # Man Lymphocytes # (Manual) Monocytes # (Manual) PT INR APTT Fibrinogen D-Dimer ABG pH POC ABG pCO2 POC ABG pO2 ABG pO2 ABG HCO3 ABG Base Excess ABG Hemoglobin ABG Oxyhemoglobin ABG Sodium ABG Potassium ABG Chloride ABG Glucose VBG pH Oxyhemoglobin Carboxyhemoglobin Sodium Potassium Chloride Carbon Dioxide BUN Creatinine Glucose POC Glucose 112 H 126 H 133 H Lactic Acid Calcium Ionized Calcium Magnesium AST ALT Alkaline Phosphatase Lactate Dehydrogenase NT-Pro-B Natriuret Pep Total Protein Albumin Arterial Blood Glucose Arterial Blood Ionized Calcium Crossmatch 10/07/20 10/07/20 10/07/20 00:35 02:22 03:16 WBC RBC Hgb Hct MCV MCH MCHC RDW Plt Count Lymph % (Auto) Lymph # (Auto) [place] # (Auto) Seg Neutrophils % Seg Neuts % (Manual) Lymphocytes % (Manual) Monocytes % (Manual) Nucleated RBC % Seg Neutrophils # Seg Neutrophils # Man Lymphocytes # (Manual) Monocytes # (Manual) PT INR APTT Fibrinogen D-Dimer ABG pH POC ABG pCO2 POC ABG pO2 ABG pO2 ABG HCO3 ABG Base Excess ABG Hemoglobin 11.6 L ABG Oxyhemoglobin ABG Sodium ABG Potassium ABG Chloride ABG Glucose 156 H VBG pH Oxyhemoglobin Carboxyhemoglobin 0.3 L Sodium Potassium Chloride Carbon Dioxide BUN Creatinine Glucose POC Glucose 124 H Lactic Acid Calcium Ionized Calcium Magnesium 5.90 H AST ALT Alkaline Phosphatase Lactate Dehydrogenase NT-Pro-B Natriuret Pep Total Protein Albumin Arterial Blood Glucose 156 H Arterial Blood Ionized Calcium 4.2 L Crossmatch 10/07/20 10/07/20 10/07/20 04:06 05:45 07:05 WBC 19.2 H RBC 3.57 L Hgb Hct MCV MCH MCHC 35 H RDW 17.1 H Plt Count 129 L Lymph % (Auto) Lymph # (Auto) [place] # (Auto) Seg Neutrophils % Seg Neuts % (Manual) 94.0 H Lymphocytes % (Manual) 6.0 L Monocytes % (Manual) Nucleated RBC % Seg Neutrophils # Seg Neutrophils # Man 18.0 H Lymphocytes # (Manual) Monocytes # (Manual) PT INR APTT Fibrinogen D-Dimer ABG pH POC ABG pCO2 POC ABG pO2 ABG pO2 ABG HCO3 ABG Base Excess ABG Hemoglobin ABG Oxyhemoglobin ABG Sodium ABG Potassium ABG Chloride ABG Glucose VBG pH Oxyhemoglobin Carboxyhemoglobin Sodium Potassium Chloride Carbon Dioxide BUN Creatinine Glucose POC Glucose 135 H 149 H Lactic Acid Calcium Ionized Calcium Magnesium AST ALT Alkaline Phosphatase Lactate Dehydrogenase NT-Pro-B Natriuret Pep Total Protein Albumin Arterial Blood Glucose Arterial Blood Ionized Calcium Crossmatch 10/07/20 10/07/20 10/07/20 07:05 07:05 12:21 WBC RBC Hgb Hct MCV MCH MCHC RDW Plt Count Lymph % (Auto) Lymph # (Auto) [place] # (Auto) Seg Neutrophils % Seg Neuts % (Manual) Lymphocytes % (Manual) Monocytes % (Manual) Nucleated RBC % Seg Neutrophils # Seg Neutrophils # Man Lymphocytes # (Manual) Monocytes # (Manual) PT INR APTT Fibrinogen D-Dimer ABG pH POC ABG pCO2 POC ABG pO2 ABG pO2 ABG HCO3 ABG Base Excess ABG Hemoglobin ABG Oxyhemoglobin ABG Sodium ABG Potassium ABG Chloride ABG Glucose VBG pH Oxyhemoglobin Carboxyhemoglobin Sodium Potassium Chloride Carbon Dioxide BUN 21 H Creatinine 1.7 H Glucose 171 H POC Glucose 124 H Lactic Acid Calcium 7.4 L Ionized Calcium Magnesium 6.10 H AST 245 H ALT 147 H Alkaline Phosphatase Lactate Dehydrogenase NT-Pro-B Natriuret Pep Total Protein 5.3 L Albumin 2.8 L Arterial Blood Glucose Arterial Blood Ionized Calcium Crossmatch 10/07/20 10/07/20 10/07/20 19:52 21:50 23:41 WBC RBC Hgb Hct MCV MCH MCHC RDW Plt Count Lymph % (Auto) Lymph # (Auto) [place] # (Auto) Seg Neutrophils % Seg Neuts % (Manual) Lymphocytes % (Manual) Monocytes % (Manual) Nucleated RBC % Seg Neutrophils # Seg Neutrophils # Man Lymphocytes # (Manual) Monocytes # (Manual) PT INR APTT Fibrinogen D-Dimer ABG pH POC ABG pCO2 POC ABG pO2 ABG pO2 ABG HCO3 ABG Base Excess ABG Hemoglobin ABG Oxyhemoglobin ABG Sodium ABG Potassium ABG Chloride ABG Glucose VBG pH Oxyhemoglobin Carboxyhemoglobin Sodium Potassium Chloride Carbon Dioxide BUN Creatinine Glucose POC Glucose 193 H 138 H 118 H Lactic Acid Calcium Ionized Calcium Magnesium AST ALT Alkaline Phosphatase Lactate Dehydrogenase NT-Pro-B Natriuret Pep Total Protein Albumin Arterial Blood Glucose Arterial Blood Ionized Calcium Crossmatch 10/08/20 10/08/20 10/08/20 04:20 05:30 05:43 WBC RBC Hgb Hct MCV MCH MCHC RDW Plt Count Lymph % (Auto) Lymph # (Auto) [place] # (Auto) Seg Neutrophils % Seg Neuts % (Manual) Lymphocytes % (Manual) Monocytes % (Manual) Nucleated RBC % Seg Neutrophils # Seg Neutrophils # Man Lymphocytes # (Manual) Monocytes # (Manual) PT INR APTT Fibrinogen D-Dimer ABG pH 7.467 H POC ABG pCO2 POC ABG pO2 189.8 H ABG pO2 ABG HCO3 ABG Base Excess ABG Hemoglobin 10.8 L ABG Oxyhemoglobin ABG Sodium ABG Potassium ABG Chloride ABG Glucose 133 H VBG pH Oxyhemoglobin Carboxyhemoglobin Sodium Potassium Chloride Carbon Dioxide BUN Creatinine Glucose POC Glucose 114 H 126 H Lactic Acid Calcium Ionized Calcium Magnesium AST ALT Alkaline Phosphatase Lactate Dehydrogenase NT-Pro-B Natriuret Pep Total Protein Albumin Arterial Blood Glucose 133 H Arterial Blood Ionized Calcium 4.2 L Crossmatch 10/08/20 10/08/20 10/08/20 06:42 06:42 11:20 WBC 23.6 H RBC 3.54 L Hgb Hct MCV MCH MCHC RDW 17.8 H Plt Count Lymph % (Auto) Lymph # (Auto) [place] # (Auto) Seg Neutrophils % Seg Neuts % (Manual) 93.0 H Lymphocytes % (Manual) 3.0 L Monocytes % (Manual) Nucleated RBC % 1.0 H Seg Neutrophils # Seg Neutrophils # Man 21.9 H Lymphocytes # (Manual) 0.7 L Monocytes # (Manual) 0.9 H PT INR APTT Fibrinogen D-Dimer ABG pH POC ABG pCO2 POC ABG pO2 ABG pO2 ABG HCO3 ABG Base Excess ABG Hemoglobin ABG Oxyhemoglobin ABG Sodium ABG Potassium ABG Chloride ABG Glucose VBG pH Oxyhemoglobin Carboxyhemoglobin Sodium Potassium Chloride Carbon Dioxide BUN 28 H Creatinine 1.6 H Glucose 141 H POC Glucose 127 H Lactic Acid Calcium 7.6 L Ionized Calcium Magnesium AST 162 H ALT 103 H Alkaline Phosphatase Lactate Dehydrogenase NT-Pro-B Natriuret Pep Total Protein 5.4 L Albumin 2.7 L Arterial Blood Glucose Arterial Blood Ionized Calcium Crossmatch 10/08/20 10/08/20 10/08/20 16:05 20:14 21:27 WBC RBC Hgb Hct MCV MCH MCHC RDW Plt Count Lymph % (Auto) Lymph # (Auto) [place] # (Auto) Seg Neutrophils % Seg Neuts % (Manual) Lymphocytes % (Manual) Monocytes % (Manual) Nucleated RBC % Seg Neutrophils # Seg Neutrophils # Man Lymphocytes # (Manual) Monocytes # (Manual) PT INR APTT Fibrinogen D-Dimer ABG pH POC ABG pCO2 POC ABG pO2 ABG pO2 ABG HCO3 ABG Base Excess ABG Hemoglobin ABG Oxyhemoglobin ABG Sodium ABG Potassium ABG Chloride ABG Glucose VBG pH Oxyhemoglobin Carboxyhemoglobin Sodium Potassium Chloride Carbon Dioxide BUN Creatinine Glucose POC Glucose 172 H 147 H 140 H Lactic Acid Calcium Ionized Calcium Magnesium AST ALT Alkaline Phosphatase Lactate Dehydrogenase NT-Pro-B Natriuret Pep Total Protein Albumin Arterial Blood Glucose Arterial Blood Ionized Calcium Crossmatch 10/08/20 10/09/20 10/09/20 23:24 02:10 03:44 WBC RBC Hgb Hct MCV MCH MCHC RDW Plt Count Lymph % (Auto) Lymph # (Auto) [place] # (Auto) Seg Neutrophils % Seg Neuts % (Manual) Lymphocytes % (Manual) Monocytes % (Manual) Nucleated RBC % Seg Neutrophils # Seg Neutrophils # Man Lymphocytes # (Manual) Monocytes # (Manual) PT INR APTT Fibrinogen D-Dimer ABG pH POC ABG pCO2 POC ABG pO2 ABG pO2 ABG HCO3 ABG Base Excess ABG Hemoglobin ABG Oxyhemoglobin ABG Sodium ABG Potassium ABG Chloride ABG Glucose VBG pH Oxyhemoglobin Carboxyhemoglobin Sodium Potassium Chloride Carbon Dioxide BUN Creatinine Glucose POC Glucose 135 H 111 H 109 H Lactic Acid Calcium Ionized Calcium Magnesium AST ALT Alkaline Phosphatase Lactate Dehydrogenase NT-Pro-B Natriuret Pep Total Protein Albumin Arterial Blood Glucose Arterial Blood Ionized Calcium Crossmatch 10/09/20 10/09/20 10/09/20 04:39 05:46 05:46 WBC 19.7 H RBC 3.51 L Hgb Hct MCV MCH MCHC RDW 17.7 H Plt Count Lymph % (Auto) Lymph # (Auto) [place] # (Auto) Seg Neutrophils % Seg Neuts % (Manual) 86.0 H Lymphocytes % (Manual) 4.0 L Monocytes % (Manual) 9.0 H Nucleated RBC % Seg Neutrophils # Seg Neutrophils # Man 16.9 H Lymphocytes # (Manual) 0.8 L Monocytes # (Manual) 1.8 H PT INR APTT Fibrinogen D-Dimer ABG pH 7.513 H POC ABG pCO2 POC ABG pO2 33.6 L ABG pO2 ABG HCO3 ABG Base Excess ABG Hemoglobin 11.1 L ABG Oxyhemoglobin 70.2 L ABG Sodium ABG Potassium 3.2 L ABG Chloride 108.0 H ABG Glucose 108 H VBG pH Oxyhemoglobin Carboxyhemoglobin Sodium Potassium 3.2 L Chloride 108.9 H Carbon Dioxide BUN 34 H Creatinine 1.4 H Glucose 109 H POC Glucose Lactic Acid Calcium 7.6 L Ionized Calcium Magnesium AST 137 H ALT 99 H Alkaline Phosphatase Lactate Dehydrogenase NT-Pro-B Natriuret Pep Total Protein 5.1 L Albumin 2.6 L Arterial Blood Glucose 108 H Arterial Blood Ionized Calcium 4.3 L Crossmatch Chest x-ray: report reviewed, image reviewed (improving bilateral infiltrates plus stable cardiomegaly)
--- NOTE | 2020-10-09 23:32 | Progress Note ---
Assessment and Plan -- Sepsis with presumed Pneumonia Teat with iv abx, follow Cx --Acute respiratory failure with hypoxia Patient intubated Vent management per CC --DIC (disseminated intravascular coagulation) vs HELLP syndrome Has anemia,thrombocytopenia and elevated liver enzymes Patient received multiple units of RBCs, FFP's, cryo Hematology/oncology recommendations appreciated Continue to trend fibrinogen and INR Critical care on board --Possible Eclampsia/HELLP Syndrome Patient presented with seizure-->hypoxia-->urgent C section-->hysterectomy for severe bleeding/DIC developed severe anemia-->received RBC, plt, FFP, cryo was on max pressors-->now off pressors still on vent, on sedation Hematology following --s/p Cardiac arrest on admission and 10/07 ACLS protocol followed by revival Echo pending --Shock Now on one pressor Likely hypovolemic. Started on empirical antibiotics for possible sepsis. Continue to monitor blood pressure closely Trend H&H and transfuse as needed --Lactic acidosis As a result of poor organ perfusion and possible sepsis Continue IV hydration. Lactic acid is trending down Nephrology on board --ADOLPH As a result of hypoperfusion and shock Continue IV hydration Cr stable at 1.7. --DVT prophylaxis Patient in DIC No anticoagulants The high probability of a clinically significant, sudden or life threatening deterioration of the [pulmonary] system(s) required my full and direct attention, intervention and personal management. The aggregate critical care time was [35] minutes. This time is in addition to time spent performing reported procedures but includes the following: [x] Data Review and interpretation [x] Patient assessment and monitoring of vital signs [x] Documentation [x] Medication orders and management brief History 30 year old -Hungarian female CHE 10/25/20 at 36w5d who presents with seizures in triage on 10/02/20. Pt was not able to provide history but per pt's , she presented to the hospital to return a 24 hour urine specimen for analysis. She then suddenly reported that she did not feel good. She was taken to labor and delivery and shortly after arrival, she began seizing. During this time, a code met was called because the patient became hypoxic. She was then noted to be without a pulse. Chest compressions were started immediately, and the patient was emergently taken to the operating room for delivery of the fetus. 01This patient has had care at [facility] with comanagement by [facility] since 11 wks complicated by ADHD, morbid obesity, generalized anxiety disorder, panic attacks, chronic narcotic use, fibromyalgia, GERD, Irritable Bowel Syndrome, Migraines, h/o endometrial ablation and ovarian vein embolization, genital herpes, insomnia, LGA fetus, nausea and vomiting, polyhydramnios, quad screen positive for Down's Syndrome, and previous x 3. She is GBS negative. 11:30: Pt brought to L&D triage for evaluation of possible labor. Pt accompanied by her spouse. Pt spouse poor historian; unable to obtain history- allergies at this time. Pt taken from registration to triage area via WC. Pt unresponsive, actively seizing with snorous respirations. senior litigation paralegal, Kassy, called and requesting assistance. 11:35: Multiple staff at bedside. Pt 02 sat 67% on nonrebreather, unable to read BP at this time. Yifan Theodore CRNA, at bedside for intubation and assistance with IV insertion. INT attempt by multiple RNs unsuccessful at this time. 11:42: Pt being bagged by KORIN, 02% 79%. No pulse palpated, compressions started at this time; bharati young called and Dr. Newberry preparing OR for emergent c/s. 11:44: Continued compressions on stretcher while transporting pt to OR 1. Pt being bagged with jaw thrust manuever in place by OKRIN Stringer student. 11:45: Arrival to OR 1. Dr. Newberry and Dr. Portillo present for emergent c/s. Code team arrived for continued care. patient revived and c/s done Patient has been bleeding from C/s site followed by supracervical hysterectomy for severe bleeding Patient transfused multiple units of PRBC, Patient in DIC. Transferred to the ICU 10/03. Patient seen and examined at bedside this morning. Patient is nonresponsive and mechanically ventilated. On pressors. Labs reviewed-has leukocytosis, anemia, thrombocytopenia, ADOLPH and lactic acidosis. Started on IV antibiotics to cover possible sepsis secondary to DIC. Hematology oncology recommendations appreciated-needs additional cryoprecipitate and FFP. Monitor D-dimer, fibrinogen and frequent labs. Nephrology consulted for lactic acidosis and ADOLPH. 10/04. Remains mechanically ventilated. [place] antibiotics. Labs shows improved acidosis - lactic acid 3.5. Hb drop noted. Getting transfused 2 units PRBCs. Platelet count is ~40k. Continue to monitor labs closely. Critical care team on board. 10/05; xray reviewed, concerning for multifocal infilrate, likely underlying Pneumonia, will add ID consult to assist with management of this critically ill patient, start tube feed, closely monitor renal system 10/06: Resumed care, remains on mechanical ventilation. No active bleeding, H&H stable. Continue to monitor CBC and BMP. Continue IV antibiotic for underlying pneumonia. Follow critical care and ID recommendation. 10/07: Remains on mechanical ventilation. No active bleeding, H&H stable. Critical care following, wean off ventilation as tolerated. 10/08: Patient had another cardiac arrest last night. Remains on mechanical ventilation, update family. Continue supportive care -poor prognosis 10/09: Called patient mother and discussed about patient care and management. Answered all question to best of my knowledge and family satisfaction. Patient remains on mechanical ventilation, cardiac arrest x2 so far. Critically sick, poor prognosis Subjective Date of service: 10/09/20 Principal diagnosis: Eclampsia/HELLP Syndrome, ADOLPH, DIC; s/p , s/p supracervical hyst Interval history: Patient seen and examined Remains intubated No active bleeding H&H stable Discussed with RN at the bedside Objective - Exam Narrative Exam: vITAL SIGNS: Reviewed. GENERAL: Intubated HEAD: No signs of head trauma. EYES: Pupils are equal. MOUTH: OT in place NECK: No adenopathy, no JVD. CHEST: Rales posteriorly CARDIAC: normal S1 and S2, without murmurs, gallops, or rubs. ABDOMEN: Soft, non tender and non distended. surgical wound in tact, No rebound or guarding, and no masses palpated. Bowel Sounds normal. AVINASH drain intact MUSCULOSKELETAL: No edema NEUROLOGIC EXAM: Intubated SKIN: No obvious lesions - Constitutional Vitals: Vital Signs - 12hr 10/09/20 10/09/20 10/09/20 11:45 12:00 12:15 Temperature 99.2 F Pulse Rate 82 90 81 Pulse Rate [ From Monitor] Pulse Rate [ 90 None] Respiratory 26 H 30 H 26 H Rate Blood Pressure 143/81 141/78 148/80 O2 Sat by Pulse 97 95 97 Oximetry 10/09/20 10/09/20 10/09/20 12:30 12:41 12:45 Temperature Pulse Rate 77 78 77 Pulse Rate [ From Monitor] Pulse Rate [ None] Respiratory 25 H 27 H Rate Blood Pressure 147/76 147/76 155/79 O2 Sat by Pulse 97 97 97 Oximetry 10/09/20 10/09/20 10/09/20 13:00 13:15 13:30 Temperature Pulse Rate 80 81 81 Pulse Rate [ From Monitor] Pulse Rate [ None] Respiratory 27 H 28 H 28 H Rate Blood Pressure 146/85 141/81 145/79 O2 Sat by Pulse 97 97 97 Oximetry 10/09/20 10/09/20 10/09/20 13:45 14:00 14:15 Temperature Pulse Rate 80 83 83 Pulse Rate [ From Monitor] Pulse Rate [ None] Respiratory 27 H 29 H 27 H Rate Blood Pressure 150/78 146/77 150/81 O2 Sat by Pulse 97 97 97 Oximetry 10/09/20 10/09/20 10/09/20 14:30 14:41 14:45 Temperature Pulse Rate 87 88 88 Pulse Rate [ From Monitor] Pulse Rate [ None] Respiratory 28 H 29 H Rate Blood Pressure 143/80 143/80 138/78 O2 Sat by Pulse 97 98 Oximetry 10/09/20 10/09/20 10/09/20 15:00 15:15 15:30 Temperature Pulse Rate 82 81 82 Pulse Rate [ From Monitor] Pulse Rate [ None] Respiratory 26 H 25 H 28 H Rate Blood Pressure 142/78 145/80 141/82 O2 Sat by Pulse 98 98 98 Oximetry 10/09/20 10/09/20 10/09/20 15:45 16:00 16:15 Temperature 99.5 F Pulse Rate 82 80 82 Pulse Rate [ From Monitor] Pulse Rate [ None] Respiratory 25 H 23 25 H Rate Blood Pressure 140/77 142/79 142/79 O2 Sat by Pulse 97 95 97 Oximetry 10/09/20 10/09/20 10/09/20 16:30 16:45 17:00 Temperature Pulse Rate 80 79 82 Pulse Rate [ From Monitor] Pulse Rate [ None] Respiratory 21 26 H 26 H Rate Blood Pressure 139/74 137/73 145/78 O2 Sat by Pulse 97 97 97 Oximetry 10/09/20 10/09/20 10/09/20 17:02 17:15 17:31 Temperature Pulse Rate 82 93 H 80 Pulse Rate [ From Monitor] Pulse Rate [ None] Respiratory 24 27 H Rate Blood Pressure 145/78 145/78 157/82 O2 Sat by Pulse 97 96 96 Oximetry 10/09/20 10/09/20 10/09/20 17:45 18:00 18:15 Temperature Pulse Rate 80 80 83 Pulse Rate [ From Monitor] Pulse Rate [ None] Respiratory 27 H 27 H 27 H Rate Blood Pressure 157/82 164/86 161/89 O2 Sat by Pulse 97 96 96 Oximetry 10/09/20 10/09/20 10/09/20 18:30 18:45 19:00 Temperature Pulse Rate 77 77 76 Pulse Rate [ From Monitor] Pulse Rate [ None] Respiratory 24 25 H 27 H Rate Blood Pressure 157/92 167/94 166/93 O2 Sat by Pulse 96 97 96 Oximetry 10/09/20 10/09/20 10/09/20 19:15 19:30 19:45 Temperature Pulse Rate 77 77 78 Pulse Rate [ From Monitor] Pulse Rate [ None] Respiratory 26 H 27 H 24 Rate Blood Pressure 166/93 166/95 169/94 O2 Sat by Pulse 97 96 96 Oximetry 10/09/20 10/09/20 10/09/20 20:00 20:15 20:25 Temperature 100.3 F H Pulse Rate 77 78 78 Pulse Rate [ 77 From Monitor] Pulse Rate [ None] Respiratory 26 H 27 H Rate Blood Pressure 169/88 167/91 167/91 O2 Sat by Pulse 96 98 Oximetry 10/09/20 10/09/20 10/09/20 20:30 20:45 21:00 Temperature Pulse Rate 77 75 76 Pulse Rate [ From Monitor] Pulse Rate [ None] Respiratory 28 H 24 35 H Rate Blood Pressure 160/89 160/89 162/93 O2 Sat by Pulse 96 98 97 Oximetry 10/09/20 10/09/20 10/09/20 21:15 21:30 21:45 Temperature Pulse Rate 75 83 74 Pulse Rate [ From Monitor] Pulse Rate [ None] Respiratory 20 36 H 26 H Rate Blood Pressure 162/93 171/93 171/93 O2 Sat by Pulse 99 97 98 Oximetry 10/09/20 10/09/20 10/09/20 22:00 22:15 22:31 Temperature Pulse Rate 81 73 73 Pulse Rate [ From Monitor] Pulse Rate [ None] Respiratory 27 H 25 H 26 H Rate Blood Pressure 165/96 171/93 159/91 O2 Sat by Pulse 94 98 96 Oximetry 10/09/20 10/09/20 22:45 23:00 Temperature Pulse Rate 77 74 Pulse Rate [ From Monitor] Pulse Rate [ None] Respiratory 28 H 26 H Rate Blood Pressure 168/93 167/87 O2 Sat by Pulse 95 96 Oximetry - Labs CBC & Chem 7: 10/10/20 04:00 10/10/20 04:00 Labs: Abnormal lab results 10/09/20 10/09/20 10/09/20 Range/Units 02:10 03:44 04:39 WBC (4.5-11.0) K/mm3 RBC (3.65-5.03) M/mm3 RDW (13.2-15.2) % Seg Neuts % (Manual) (40.0-70.0) % Lymphocytes % (Manual) (13.4-35.0) % Monocytes % (Manual) (0.0-7.3) % Seg Neutrophils # Man (1.8-7.7) K/mm3 Lymphocytes # (Manual) (1.2-5.4) K/mm3 Monocytes # (Manual) (0.0-0.8) K/mm3 ABG pH 7.513 H (7.320-7.450) POC ABG pO2 33.6 L (83-108) mmHg ABG Hemoglobin 11.1 L (12.0-17.5) ABG Oxyhemoglobin 70.2 L (94-98) ABG Potassium 3.2 L (3.40-4.50) mmol/L ABG Chloride 108.0 H (98-107) mmol/L ABG Glucose 108 H (65-95) mg/dL Potassium (3.6-5.0) mmol/L Chloride (98-107) mmol/L BUN (7-17) mg/dL Creatinine (0.6-1.2) mg/dL Glucose (65-100) mg/dL POC Glucose 111 H 109 H (70-105) mg/dL Calcium (8.4-10.2) mg/dL AST (5-40) units/L ALT (7-56) units/L Total Protein (6.3-8.2) g/dL Albumin (3.9-5) g/dL Arterial Blood Glucose 108 H (65-95) mg/dL Arterial Blood Ionized Calcium 4.3 L (4.6-5.3) mg/dL 10/09/20 10/09/20 Range/Units 05:46 05:46 WBC 19.7 H (4.5-11.0) K/mm3 RBC 3.51 L (3.65-5.03) M/mm3 RDW 17.7 H (13.2-15.2) % Seg Neuts % (Manual) 86.0 H (40.0-70.0) % Lymphocytes % (Manual) 4.0 L (13.4-35.0) % Monocytes % (Manual) 9.0 H (0.0-7.3) % Seg Neutrophils # Man 16.9 H (1.8-7.7) K/mm3 Lymphocytes # (Manual) 0.8 L (1.2-5.4) K/mm3 Monocytes # (Manual) 1.8 H (0.0-0.8) K/mm3 ABG pH (7.320-7.450) POC ABG pO2 (83-108) mmHg ABG Hemoglobin (12.0-17.5) ABG Oxyhemoglobin (94-98) ABG Potassium (3.40-4.50) mmol/L ABG Chloride (98-107) mmol/L ABG Glucose (65-95) mg/dL Potassium 3.2 L (3.6-5.0) mmol/L Chloride 108.9 H (98-107) mmol/L BUN 34 H (7-17) mg/dL Creatinine 1.4 H (0.6-1.2) mg/dL Glucose 109 H (65-100) mg/dL POC Glucose (70-105) mg/dL Calcium 7.6 L (8.4-10.2) mg/dL AST 137 H (5-40) units/L ALT 99 H (7-56) units/L Total Protein 5.1 L (6.3-8.2) g/dL Albumin 2.6 L (3.9-5) g/dL Arterial Blood Glucose (65-95) mg/dL Arterial Blood Ionized Calcium (4.6-5.3) mg/dL HEART Score - HEART Score Age: < 45 Risk factors: 1-2 risk factors - Critical Actions Critical Actions: >7 pts:50-65% risk of adverse cardiac event. Early invasive measures
[2020-10-09] MEDS: hydrALAZINE 20 MG/1 ML INJ IV PRN (23:38)
[2020-10-09] MEDS: LORazepam 2 MG/ML VIAL IV PRN (23:56)
--- NOTE | 2020-10-10 02:52 | XRay Report ---
CHEST 1 VIEW [id number] INDICATION / CLINICAL INFORMATION: follow up respiratory failure COMPARISON: 10/09/2020 FINDINGS: SUPPORT DEVICES: Stable HEART / MEDIASTINUM: Stable LUNGS / PLEURA: Increased congestion is noted. There appears to be mild interstitial edema with mild increase noted. No pneumothorax. ADDITIONAL FINDINGS: No significant additional findings. Signer Name: Macario Morelos MD Signed: 10/10/2020 2:48 AM Workstation Name: [id number]
[2020-10-10] MEDS: ACETAMINOPHEN 325 MG/10.15 ML ORAL LIQD UNIT DOSE FEEDTUBE PRN ×2 (04:02→08:46)
[2020-10-10 04:51] LABS: ABG Base Excess -0.8 mmol/L (-2.0-3.0); ABG HCO3 20.6 mmol/L (20.0-26.0); ABG Methemoglobin 0.6 % (0.0-1.5); ABG Oxygen Saturation 97.9 % (95.0-99.0); ABG PH 7.534 pH Units (7.350-7.450); ABG PO2 95.2 mm Hg (80.0-90.0)
[2020-10-10] MEDS: CEFEPIME/NS 2 GM/100 ML 2 GM/100 ML BAG IV SCH ×2 (05:17→17:46)
[2020-10-10] MEDS: DEXTROSE 10% IN WATER 1,000 ML IV SCH ×2 (06:31→21:39)
[2020-10-10 07:11] LABS: Basophils % (Auto) 0.1 % (0.0-1.8); Eosinophils # (Auto) 0.2 K/mm3 (0.0-0.4); Eosinophils % (Auto) 1.3 % (0.0-4.3); Hematocrit 32.9 % (30.3-42.9); Lymphocytes # (Auto) 1.8 K/mm3 (1.2-5.4); Lymphocytes % (Auto) 9.8 % (13.4-35.0); Mean Corpuscular HGB Conc 34 % (30-34); Mean Corpuscular Volume 88 fl (79-97); Monocytes # (Auto) 1.6 K/mm3 (0.0-0.8); Monocytes % (Auto) 8.8 % (0.0-7.3); Platelet Count 236 K/mm3 (140-440); Red Blood Count 3.73 M/mm3 (3.65-5.03); Red Cell Distribution Width 17.5 % (13.2-15.2)
[2020-10-10 07:32] LABS: Albumin 2.7 g/dL (3.9-5); Calcium 7.8 mg/dL (8.4-10.2)
[2020-10-10] MEDS: FAMOTIDINE 20 MG TAB PO SCH ×2 (09:22→21:51)
[2020-10-10] MEDS: TOPIRAMATE TAB 25 MG TAB PO SCH ×2 (09:22→21:51)
[2020-10-10] MEDS: busPIRone 10 MG TAB PO SCH ×2 (09:23→21:51)
[2020-10-10] MEDS: busPIRone 5 MG TAB PO SCH ×2 (09:25→21:51)
[2020-10-10] MEDS ORDERED: POTASSIUM CHLORIDE 20 MEQ PACKET FEEDTUBE ONE (11:00)
[2020-10-10] MEDS: hydrALAZINE 20 MG/1 ML INJ IV PRN ×2 (12:48→17:49)
[2020-10-10] MEDS: LORazepam 2 MG/ML VIAL IV PRN (16:56)
--- NOTE | 2020-10-10 18:00 | Progress Note ---
Assessment and Plan A: POD#8 s/p repeat section at 36 wks secondary to Eclampsia and Cardiac Arrest with Resuscitation POD#8 s/p supracervical abdominal hysterectomy secondary to Uterine Atony, Hemorrhage and Disseminated Intravascular Coagulation (DIC) s/p multiple transfusions of blood products Acute Kidney Injury, nonoligouric -Status post cardiac arrest 10/07/2020 requiring reintubation. -Shock, DIC: Secondary to hemorrhage, ?possible sepsis. Possible pneumonia versus fluid overload. -Acute kidney injury: Improving. -Acute respiratory failure: remains on the vent, settings reviewed -Transaminitis vs HELLP. Improving. -Preeclampsia: magnesium discontinued - hemorrhage: Status post , status post supracervical hysterectomy, monitor AVINASH drain P: Continue supportive care as recommended by Pulmonology/Critical Care, Internal Medicine, Infectious Disease, Nephrology and Hematology-Oncology Awaiting formal neurology evaluation Monitor AVINASH drain output Routine postoperative care Subjective - Subjective Date of service: 10/10/20 Principal diagnosis: Eclampsia/HELLP Syndrome, ADOLPH, DIC; s/p , s/p supracervical hyst Interval history: Late entry: evaluation complete [id number] All leasing sales consultant recommendations reviewed and greatly appreciated. Pt remains intubated and sedated. Patient reports: other (patient sedated/intubated) : in NICU Objective - Vital Signs Latest vital signs: Vital Signs Temp Pulse Pulse Resp BP Pulse Ox 10/10/20 17:49 89 179/94 10/10/20 17:00 80 32 H 160/97 93 10/10/20 16:45 80 32 H 143/95 92 10/10/20 16:30 82 30 H 140/95 92 10/10/20 16:15 91 H 30 H 167/89 93 10/10/20 16:11 82 157/97 97 10/10/20 16:00 80 27 H 157/97 93 10/10/20 15:45 82 28 H 150/82 98 10/10/20 15:30 80 27 H 150/82 92 10/10/20 15:15 82 27 H 152/87 92 10/10/20 15:01 91 H 31 H 143/120 92 10/10/20 14:45 87 25 H 142/81 94 10/10/20 14:30 95 H 29 H 146/83 94 10/10/20 14:15 137/90 95 10/10/20 14:01 93 H 137/90 10/10/20 14:00 93 H 34 H 137/90 93 10/10/20 13:45 89 32 H 134/83 94 10/10/20 13:30 91 H 34 H 144/84 93 10/10/20 13:15 88 33 H 169/63 96 10/10/20 13:00 84 31 H 169/63 93 10/10/20 12:48 68 171/99 10/10/20 12:46 64 171/99 98 10/10/20 12:45 63 28 H 171/99 95 10/10/20 12:30 63 28 H 167/89 96 10/10/20 12:15 60 25 H 175/95 98 10/10/20 12:00 100.2 F H 63 63 28 H 175/95 95 10/10/20 11:45 64 27 H 172/99 98 10/10/20 11:30 62 26 H 172/99 95 10/10/20 11:15 66 27 H 167/98 94 10/10/20 11:00 63 27 H 168/97 95 10/10/20 10:45 65 27 H 168/95 95 10/10/20 10:30 62 26 H 163/95 95 10/10/20 10:15 62 26 H 163/94 95 10/10/20 10:00 63 26 H 151/94 95 10/10/20 09:45 63 25 H 153/90 95 10/10/20 09:30 71 28 H 154/92 94 10/10/20 09:15 67 28 H 159/93 93 10/10/20 09:00 69 30 H 163/92 95 10/10/20 08:45 65 22 174/93 97 10/10/20 08:30 64 26 H 164/91 97 10/10/20 08:25 66 162/87 10/10/20 08:15 65 25 H 162/87 97 10/10/20 08:10 76 166/94 99 10/10/20 08:00 100.4 F H 90 67 28 H 166/94 98 10/10/20 07:45 71 29 H 166/94 97 10/10/20 07:30 69 28 H 93 10/10/20 07:15 67 25 H 165/86 99 10/10/20 07:00 64 25 H 165/86 97 10/10/20 06:45 73 30 H 158/90 97 10/10/20 06:30 69 23 159/81 97 10/10/20 06:15 74 29 H 159/78 96 10/10/20 06:01 67 23 153/81 97 10/10/20 05:45 68 25 H 153/82 98 10/10/20 05:36 69 153/62 98 10/10/20 05:30 77 21 153/82 97 10/10/20 05:15 75 27 H 146/83 97 10/10/20 05:00 29 H 154/87 94 10/10/20 04:45 84 28 H 155/90 98 10/10/20 04:30 79 28 H 155/90 96 10/10/20 04:29 101.6 F H 10/10/20 04:15 84 28 H 170/96 97 10/10/20 04:01 88 34 H 174/91 98 10/10/20 04:00 101.3 F H 88 88 30 H 97 10/10/20 03:45 93 H 26 H 170/96 97 10/10/20 03:30 90 33 H 170/96 96 10/10/20 03:15 88 30 H 164/93 95 10/10/20 03:00 88 33 H 156/98 96 10/10/20 02:45 88 28 H 158/90 97 10/10/20 02:30 90 28 H 158/90 94 10/10/20 02:15 91 H 29 H 176/113 97 10/10/20 02:00 88 28 H 168/84 95 10/10/20 01:45 88 27 H 150/82 97 10/10/20 01:30 91 H 29 H 150/82 95 10/10/20 01:15 90 27 H 149/80 97 10/10/20 01:00 92 H 28 H 149/80 95 10/10/20 00:45 92 H 18 144/84 97 10/10/20 00:30 92 H 27 H 144/84 94 10/10/20 00:15 99 H 29 H 157/83 97 10/10/20 00:07 103 H 33 H 157/83 97 10/10/20 00:00 100.2 F H 102 H 103 H 31 H 157/83 94 10/09/20 23:45 96 H 26 H 182/94 97 10/09/20 23:40 102 H 156/75 97 10/09/20 23:38 73 182/94 10/09/20 23:30 72 29 H 182/94 96 10/09/20 23:15 74 28 H 167/87 98 10/09/20 23:00 74 26 H 167/87 96 10/09/20 22:45 77 28 H 168/93 95 10/09/20 22:31 73 26 H 159/91 96 10/09/20 22:15 73 25 H 171/93 98 10/09/20 22:00 81 27 H 165/96 94 10/09/20 21:45 74 26 H 171/93 98 10/09/20 21:30 83 36 H 171/93 97 10/09/20 21:15 75 20 162/93 99 10/09/20 21:00 76 35 H 162/93 97 10/09/20 20:45 75 24 160/89 98 10/09/20 20:30 77 28 H 160/89 96 10/09/20 20:25 78 167/91 10/09/20 20:15 78 27 H 167/91 98 10/09/20 20:00 100.3 F H 77 77 26 H 169/88 96 10/09/20 19:45 78 24 169/94 96 10/09/20 19:30 77 27 H 166/95 96 10/09/20 19:15 77 26 H 166/93 97 10/09/20 19:00 76 27 H 166/93 96 10/09/20 18:45 77 25 H 167/94 97 10/09/20 18:30 77 24 157/92 96 10/09/20 18:15 83 27 H 161/89 96 10/09/20 18:00 80 27 H 164/86 96 Intake and Output 10/10/20 10/10/20 10/10/20 06:59 14:59 22:59 Intake Total 1824.000 859 437.769 Output Total 4255 2635 680 Balance -2431.000 -1776 -242.231 Intake: IV 1104.000 104 142.769 CEFEPIME/NS 2 GM/100 ML 2 100 gm In 100 ml @ 200 mls/ hr IV Q12H [facility] Rx#: [id number] D10w 1,000 ml @ 75 mls/hr 1000 IV DIRECT [facility] Rx#: [id number] dexmedeTOMIDine 400 MCG 104.000 104 42.769 In NaCl 0.9% 100 ml @ 0.2 MCG/KG/HR 7.249 mls/hr IV TITRATE [facility] Rx#: [id number] Intake, Free Water 200 300 100 Tube Feeding 520 455 195 Output: Drainage 905 185 30 Left 905 185 30 Urine 3350 2450 650 Indwelling Catheter 3350 2450 650 Other: Total, Intake Amount 65 65 65 Total, Output Amount 1500 550 680 Voiding Method Indwelling Catheter Indwelling Catheter # Bowel Movements 1 1 - Exam Narrative Exam: General appearance: Sedated intubated HENT: Normocephalic, Atraumatic Neck: supple, tracheal midline, no JVD Lungs: Coarse breath sounds bilaterally CV: RRR no murmur Abdomen: Soft, Nondistened, incision clean/dry/intact with dressing in place, AVINASH drain-serosanguinous output Extremities: 1+ edema Skin: No rash. Psych: Sedated Neuro: Sedated - Labs Labs: Abnormal lab results 10/10/20 10/10/20 10/10/20 Range/Units 04:00 04:00 04:42 WBC 18.4 H (4.5-11.0) K/mm3 RDW 17.5 H (13.2-15.2) % Lymph % (Auto) 9.8 L (13.4-35.0) % [place] % (Auto) 8.8 H (0.0-7.3) % [place] # (Auto) 1.6 H (0.0-0.8) K/mm3 Seg Neutrophils % 80.0 H (40.0-70.0) % Seg Neutrophils # 14.7 H (1.8-7.7) K/mm3 ABG pH 7.534 H (7.350-7.450) pH Units ABG pO2 95.2 H (80.0-90.0) mm Hg ABG Hemoglobin 11.3 L (12.0-16.0) gm/dl Sodium 146 H (137-145) mmol/L Potassium 2.9 L* (3.6-5.0) mmol/L Chloride 112.6 H (98-107) mmol/L BUN 28 H (7-17) mg/dL Creatinine 1.3 H (0.6-1.2) mg/dL Glucose 101 H (65-100) mg/dL POC Glucose (70-105) mg/dL Calcium 7.8 L (8.4-10.2) mg/dL AST 122 H (5-40) units/L ALT 81 H (7-56) units/L Total Protein 5.2 L (6.3-8.2) g/dL Albumin 2.7 L (3.9-5) g/dL 10/10/20 Range/Units 09:50 WBC (4.5-11.0) K/mm3 RDW (13.2-15.2) % Lymph % (Auto) (13.4-35.0) % [place] % (Auto) (0.0-7.3) % [place] # (Auto) (0.0-0.8) K/mm3 Seg Neutrophils % (40.0-70.0) % Seg Neutrophils # (1.8-7.7) K/mm3 ABG pH (7.350-7.450) pH Units ABG pO2 (80.0-90.0) mm Hg ABG Hemoglobin (12.0-16.0) gm/dl Sodium (137-145) mmol/L Potassium (3.6-5.0) mmol/L Chloride (98-107) mmol/L BUN (7-17) mg/dL Creatinine (0.6-1.2) mg/dL Glucose (65-100) mg/dL POC Glucose 109 H (70-105) mg/dL Calcium (8.4-10.2) mg/dL AST (5-40) units/L ALT (7-56) units/L Total Protein (6.3-8.2) g/dL Albumin (3.9-5) g/dL
--- NOTE | 2020-10-10 18:39 | Progress Note ---
Assessment and Plan -- Sepsis with presumed Pneumonia Teat with iv abx, follow Cx --Acute respiratory failure with hypoxia Patient intubated Vent management per CC --DIC (disseminated intravascular coagulation) vs HELLP syndrome Has anemia,thrombocytopenia and elevated liver enzymes Patient received multiple units of RBCs, FFP's, cryo Hematology/oncology recommendations appreciated Continue to trend fibrinogen and INR Critical care on board --Possible Eclampsia/HELLP Syndrome Patient presented with seizure-->hypoxia-->urgent C section-->hysterectomy for severe bleeding/DIC developed severe anemia-->received RBC, plt, FFP, cryo was on max pressors-->now off pressors still on vent, on sedation Hematology following --s/p Cardiac arrest x2 on admission and on 10/07 ACLS protocol followed by revival Echo showed preserved Ef --Shock Now on one pressor Likely hypovolemic. Started on empirical antibiotics for possible sepsis. Continue to monitor blood pressure closely Trend H&H and transfuse as needed --Lactic acidosis As a result of poor organ perfusion and possible sepsis Continue IV hydration. Lactic acid is trending down Nephrology on board --ADOLPH As a result of hypoperfusion and shock Continue IV hydration Cr stable at 1.7. --DVT prophylaxis Patient in DIC No anticoagulants The high probability of a clinically significant, sudden or life threatening deterioration of the [pulmonary] system(s) required my full and direct at tention, intervention and personal management. The aggregate critical care time was [35] minutes. This time is in addition to time spent performing reported procedures but includes the following: [x] Data Review and interpretation [x] Patient assessment and monitoring of vital signs [x] Documentation [x] Medication orders and management brief History 30 year old -Citizen Of [place] female CHE 10/25/20 at 36w5d who presents with seizures in triage on 10/02/20. Pt was not able to provide history but per pt's , she presented to the hospital to return a 24 hour urine specimen for analysis. She then suddenly reported that she did not feel good. She was taken to labor and delivery and shortly after arrival, she began seizing. During this time, a code met was called because the patient became hypoxic. She was then noted to be without a pulse. Chest compressions were started immediately, and the patient was emergently taken to the operating room for delivery of the fetus. 01This patient has had care at [facility] with comanagement by [facility] since 11 wks complicated by ADHD, morbid obesity, generalized anxiety disorder, panic attacks, chronic narcotic use, fibromyalgia, GERD, Irritable Bowel Syndrome, Migraines, h/o endometrial ablation and ovarian vein embolization, genital herpes, insomnia, LGA fetus, nausea and vomiting, polyhydramnios, quad screen positive for Down's Syndrome, and previous x 3. She is GBS negative. 11:30: Pt brought to L&D triage for evaluation of possible labor. Pt accompanied by her spouse. Pt spouse poor historian; unable to obtain history- allergies at this time. Pt taken from registration to triage area via WC. Pt unresponsive, actively seizing with snorous respirations. tube pusher, Kassy, called and requesting assistance. 11:35: Multiple staff at bedside. Pt 02 sat 67% on nonrebreather, unable to read BP at this time. Yifan Theodore CRNA, at bedside for intubation and assistance with IV insertion. INT attempt by multiple RNs unsuccessful at this time. 11:42: Pt being bagged by KORIN, 02% 79%. No pulse palpated, compressions started at this time; bharati young called and Dr. Newberry preparing OR for emergent c/s. 11:44: Continued compressions on stretcher while transporting pt to OR 1. Pt being bagged with jaw thrust manuever in place by KORIN Stringer student. 11:45: Arrival to OR 1. Dr. Newberry and Dr. Portillo present for emergent c/s. Code team arrived for continued care. patient revived and c/s done Patient has been bleeding from C/s site followed by supracervical hysterectomy for severe bleeding Patient transfused multiple units of PRBC, Patient in DIC. Transferred to the ICU 10/03. Patient seen and examined at bedside this morning. Patient is nonresponsive and mechanically ventilated. On pressors. Labs reviewed-has leukocytosis, anemia, thrombocytopenia, ADOLPH and lactic acidosis. Started on IV antibiotics to cover possible sepsis secondary to DIC. Hematology oncology recommendations appreciated-needs additional cryoprecipitate and FFP. Monitor D-dimer, fibrinogen and frequent labs. Nephrology consulted for lactic acidosis and ADOLPH. 10/04. Remains mechanically ventilated. [place] antibiotics. Labs shows improved acidosis - lactic acid 3.5. Hb drop noted. Getting transfused 2 units PRBCs. Platelet count is ~40k. Continue to monitor labs closely. Critical care team on board. 10/05; xray reviewed, concerning for multifocal infilrate, likely underlying Pneumonia, will add ID consult to assist with management of this critically ill patient, start tube feed, closely monitor renal system 10/06: Resumed care, remains on mechanical ventilation. No active bleeding, H&H stable. Continue to monitor CBC and BMP. Continue IV antibiotic for un derlying pneumonia. Follow critical care and ID recommendation. 10/07: Remains on mechanical ventilation. No active bleeding, H&H stable. Critical care following, wean off ventilation as tolerated. 10/08: Patient had another cardiac arrest last night. Remains on mechanical ventilation, update family. Continue supportive care -poor prognosis 10/09: Called patient mother and discussed about patient care and management. Answered all question to best of my knowledge and family satisfaction. Patient remains on mechanical ventilation, cardiac arrest x2 so far. Critically sick, poor prognosis 10/10: remains on mechanical ventilation. h/h stable, no active bleeding. monitor CBC/BMP Subjective Date of service: 10/10/20 Principal diagnosis: Eclampsia/HELLP Syndrome, ADOLPH, DIC; s/p , s/p supracervical hyst Interval history: Patient seen and examined Remains intubated No active bleeding H&H stable Discussed with RN at the bedside Objective - Exam Narrative Exam: vITAL SIGNS: Reviewed. GENERAL: Intubated HEAD: No signs of head trauma. EYES: Pupils are equal. MOUTH: OT in place NECK: No adenopathy, no JVD. CHEST: Rales posteriorly CARDIAC: normal S1 and S2, without murmurs, gallops, or rubs. ABDOMEN: Soft, non tender and non distended. surgical wound in tact, No rebound or guarding, and no masses palpated. Bowel Sounds normal. AVINASH drain intact MUSCULOSKELETAL: No edema NEUROLOGIC EXAM: Intubated SKIN: No obvious lesions - Constitutional Vitals: Vital Signs - 12hr 10/10/20 10/10/20 10/10/20 06:45 07:00 07:15 Temperature Pulse Rate 73 64 67 Pulse Rate [ From Monitor] Respiratory 30 H 25 H 25 H Rate Blood Pressure 158/90 165/86 165/86 O2 Sat by Pulse 97 97 99 Oximetry 12/10/10/20 10/10/20 07:30 07:45 08:00 Temperature 100.4 F H Pulse Rate 69 71 90 Pulse Rate [ 67 From Monitor] Respiratory 28 H 29 H 28 H Rate Blood Pressure 166/94 166/94 O2 Sat by Pulse 93 97 98 Oximetry 10/10/20 10/10/20 10/10/20 08:10 08:15 08:25 Temperature Pulse Rate 76 65 66 Pulse Rate [ From Monitor] Respiratory 25 H Rate Blood Pressure 166/94 162/87 162/87 O2 Sat by Pulse 99 97 Oximetry 10/10/20 10/10/20 10/10/20 08:30 08:45 09:00 Temperature Pulse Rate 64 65 69 Pulse Rate [ From Monitor] Respiratory 26 H 22 30 H Rate Blood Pressure 164/91 174/93 163/92 O2 Sat by Pulse 97 97 95 Oximetry 10/10/20 10/10/20 10/10/20 09:15 09:30 09:45 Temperature Pulse Rate 67 71 63 Pulse Rate [ From Monitor] Respiratory 28 H 28 H 25 H Rate Blood Pressure 159/93 154/92 153/90 O2 Sat by Pulse 93 94 95 Oximetry 10/10/20 10/10/20 10/10/20 10:00 10:15 10:30 Temperature Pulse Rate 63 62 62 Pulse Rate [ From Monitor] Respiratory 26 H 26 H 26 H Rate Blood Pressure 151/94 163/94 163/95 O2 Sat by Pulse 95 95 95 Oximetry 10/10/20 10/10/20 10/10/20 10:45 11:00 11:15 Temperature Pulse Rate 65 63 66 Pulse Rate [ From Monitor] Respiratory 27 H 27 H 27 H Rate Blood Pressure 168/95 168/97 167/98 O2 Sat by Pulse 95 95 94 Oximetry 10/10/20 10/10/20 10/10/20 11:30 11:45 12:00 Temperature 100.2 F H Pulse Rate 62 64 63 Pulse Rate [ 63 From Monitor] Respiratory 26 H 27 H 28 H Rate Blood Pressure 172/99 172/99 175/95 O2 Sat by Pulse 95 98 95 Oximetry 10/10/20 10/10/20 10/10/20 12:15 12:30 12:45 Temperature Pulse Rate 60 63 63 Pulse Rate [ From Monitor] Respiratory 25 H 28 H 28 H Rate Blood Pressure 175/95 167/89 171/99 O2 Sat by Pulse 98 96 95 Oximetry 10/10/20 10/10/20 10/10/20 12:46 12:48 13:00 Temperature Pulse Rate 64 68 84 Pulse Rate [ From Monitor] Respiratory 31 H Rate Blood Pressure 171/99 171/99 169/63 O2 Sat by Pulse 98 93 Oximetry 10/10/20 10/10/20 10/10/20 13:15 13:30 13:45 Temperature Pulse Rate 88 91 H 89 Pulse Rate [ From Monitor] Respiratory 33 H 34 H 32 H Rate Blood Pressure 169/63 144/84 134/83 O2 Sat by Pulse 96 93 94 Oximetry 10/10/20 10/10/20 10/10/20 14:00 14:01 14:15 Temperature Pulse Rate 93 H 93 H Pulse Rate [ From Monitor] Respiratory 34 H Rate Blood Pressure 137/90 137/90 137/90 O2 Sat by Pulse 93 95 Oximetry 10/10/20 10/10/20 10/10/20 14:30 14:45 15:01 Temperature Pulse Rate 95 H 87 91 H Pulse Rate [ From Monitor] Respiratory 29 H 25 H 31 H Rate Blood Pressure 146/83 142/81 143/120 O2 Sat by Pulse 94 94 92 Oximetry 10/10/20 10/10/20 10/10/20 15:15 15:30 15:45 Temperature Pulse Rate 82 80 82 Pulse Rate [ From Monitor] Respiratory 27 H 27 H 28 H Rate Blood Pressure 152/87 150/82 150/82 O2 Sat by Pulse 92 92 98 Oximetry 10/10/20 10/10/20 10/10/20 16:00 16:11 16:15 Temperature 98.9 F Pulse Rate 82 82 91 H Pulse Rate [ 82 From Monitor] Respiratory 27 H 30 H Rate Blood Pressure 157/97 157/97 167/89 O2 Sat by Pulse 97 97 93 Oximetry 10/10/20 10/10/20 10/10/20 16:30 16:45 17:00 Temperature Pulse Rate 82 80 80 Pulse Rate [ From Monitor] Respiratory 30 H 32 H 32 H Rate Blood Pressure 140/95 143/95 160/97 O2 Sat by Pulse 92 92 93 Oximetry 10/10/20 10/10/20 10/10/20 17:15 17:30 17:45 Temperature Pulse Rate 86 80 88 Pulse Rate [ From Monitor] Respiratory 30 H 28 H 30 H Rate Blood Pressure 171/107 179/94 179/94 O2 Sat by Pulse 93 93 97 Oximetry 10/10/20 10/10/20 10/10/20 17:49 18:00 18:15 Temperature Pulse Rate 89 107 H 108 H Pulse Rate [ From Monitor] Respiratory 29 H 31 H Rate Blood Pressure 179/94 147/82 147/82 O2 Sat by Pulse 93 96 Oximetry - Labs CBC & Chem 7: 10/11/20 04:00 10/11/20 04:00 Labs: Abnormal lab results 10/10/20 10/10/20 10/10/20 Range/Units 04:00 04:00 04:42 WBC 18.4 H (4.5-11.0) K/mm3 RDW 17.5 H (13.2-15.2) % Lymph % (Auto) 9.8 L (13.4-35.0) % [place] % (Auto) 8.8 H (0.0-7.3) % [place] # (Auto) 1.6 H (0.0-0.8) K/mm3 Seg Neutrophils % 80.0 H (40.0-70.0) % Seg Neutrophils # 14.7 H (1.8-7.7) K/mm3 ABG pH 7.534 H (7.350-7.450) pH Units ABG pO2 95.2 H (80.0-90.0) mm Hg ABG Hemoglobin 11.3 L (12.0-16.0) gm/dl Sodium 146 H (137-145) mmol/L Potassium 2.9 L* (3.6-5.0) mmol/L Chloride 112.6 H (98-107) mmol/L BUN 28 H (7-17) mg/dL Creatinine 1.3 H (0.6-1.2) mg/dL Glucose 101 H (65-100) mg/dL POC Glucose (70-105) mg/dL Calcium 7.8 L (8.4-10.2) mg/dL AST 122 H (5-40) units/L ALT 81 H (7-56) units/L Total Protein 5.2 L (6.3-8.2) g/dL Albumin 2.7 L (3.9-5) g/dL 10/10/20 Range/Units 09:50 WBC (4.5-11.0) K/mm3 RDW (13.2-15.2) % Lymph % (Auto) (13.4-35.0) % [place] % (Auto) (0.0-7.3) % [place] # (Auto) (0.0-0.8) K/mm3 Seg Neutrophils % (40.0-70.0) % Seg Neutrophils # (1.8-7.7) K/mm3 ABG pH (7.350-7.450) pH Units ABG pO2 (80.0-90.0) mm Hg ABG Hemoglobin (12.0-16.0) gm/dl Sodium (137-145) mmol/L Potassium (3.6-5.0) mmol/L Chloride (98-107) mmol/L BUN (7-17) mg/dL Creatinine (0.6-1.2) mg/dL Glucose (65-100) mg/dL POC Glucose 109 H (70-105) mg/dL Calcium (8.4-10.2) mg/dL AST (5-40) units/L ALT (7-56) units/L Total Protein (6.3-8.2) g/dL Albumin (3.9-5) g/dL HEART Score - HEART Score Age: < 45 Risk factors: 1-2 risk factors - Critical Actions Critical Actions: >7 pts:50-65% risk of adverse cardiac event. Early invasive measures
--- NOTE | 2020-10-10 20:01 | Progress Note ---
Assessment and Plan Imp: 1. Eclampsia w/ seizures s/p 2. S/p CP arrest 3. Encephalopathy, probably anoxic 4. Morbid obesity 5. DIC 6. ADOLPH 7. Acute respiratory failure, hypoxia Rec: 1. EEG negative for seizures, more c/w moderate to severe encephalopathy; would consider formal neurology evaluation 2. Cont. Precedex; Benzos prn only for seizures; mentation precludes extubation; given paradoxical abdominal breathing will add back prn Fentanyl and give dose of IV Lasix; add Duonebs TID 3. F/u labs in AM; K repleted 4. TFs, SCDs, Pepcid 5. Finishing ABX per ID recs 6. Covid-19 PCR negative 7. Consider Trach/PEG next week if continued non-improvement in mentation CCt 31 minutes Subjective Date of service: 10/10/20 Principal diagnosis: Eclampsia/HELLP Syndrome, ADOLPH, DIC; s/p , s/p supracervical hyst Interval history: No events. Eyes open, not tracking or following commands. On ACVC 12/450/50%/+6. She cannot give history. She is having paradoxical abdominal breathing. Active Medications Acetaminophen (Acetaminophen 325 Mg/10.15 Ml Oral Liqd Unit Dose) 650 mg FEEDTUBE Q6H PRN PRN Reason: Non Cardiac Pain or Temp>100.5 Last Admin: 10/10/20 08:46 Dose: 650 mg Documented by: Albuterol/Ipratropium (Ipratropium/Albuterol Sulfate 3 Ml Ampul.Neb) 1 ampul IH Q8HRT [facility] Lipase/Protease/Amylase (Lipase 10,500/Protease 25,000/Amylase 43,750 (Units) Dr Barakat) 1 each FEEDTUBE PRN PRN PRN Reason: For Clogged Feeding Tube Buspirone HCl (Buspirone 10 Mg Tab) 10 mg PO BID [facility] Last Admin: 10/10/20 09:23 Dose: 10 mg Documented by: Buspirone HCl (Buspirone 5 Mg Tab) 5 mg PO BID [facility] Last Admin: 10/10/20 09:25 Dose: 5 mg Documented by: Famotidine (Famotidine 20 Mg Tab) 20 mg PO BID [facility] Last Admin: 10/10/20 09:22 Dose: 20 mg Documented by: Fentanyl (Fentanyl 100 Mcg/2 Ml Inj) 50 mcg IV Q3HR PRN PRN Reason: Labored breathing Furosemide (Furosemide 20 Mg/2 Ml Inj) 20 mg IV ONCE ONE Stop: 10/10/20 20:54 Hydralazine HCl (Hydralazine 20 Mg/1 Ml Inj) 20 mg IV Q6H PRN PRN Reason: SBP >170 Last Admin: 10/10/20 17:49 Dose: 20 mg Documented by: Hydrophilic Ointment (Lip Therapy Vaseline) 1 applic TP Q2HR PRN PRN Reason: Dry Lips Dextrose (D10w) 1,000 mls @ 75 mls/hr IV DIRECT ERINN Last Admin: 10/10/20 06:31 Dose: 75 mls/hr Documented by: Cefepime HCl (Cefepime/Ns 2 Gm/100 Ml) 2 gm in 100 mls @ 200 mls/hr IV Q12H ERINN; Protocol Stop: 10/10/20 23:59 Last Admin: 10/10/20 17:46 Dose: 200 mls/hr Documented by: Dexmedetomidine HCl 400 mcg/ (Sodium Chloride) 104 mls @ 7.249 mls/hr IV TITRATE ERINN; Protocol Last Titration: 10/10/20 16:57 Dose: 0.5 mcg/kg/hr, 18.122 mls/hr Documented by: Labetalol HCl (Labetalol 100 Mg Tab) 100 mg PO TID ERINN Last Admin: 10/10/20 14:01 Dose: 100 mg Documented by: Lorazepam (Lorazepam 2 Mg/Ml Vial) 2 mg IV Q2H PRN PRN Reason: Seizures Last Admin: 10/10/20 16:56 Dose: 2 mg Documented by: Multi-Ingred Cream/Lotion/Oil/Oint (Mineral Oil/Petrolatum, White Ophth Oint 3.5 Gm) 1 applic OU Q4HR PRN PRN Reason: Dry Eye(s) Simple Syrup (Simple Syrup 15 Ml) 15 ml FEEDTUBE PRN PRN PRN Reason: Hypoglycemia Simple Syrup (Simple Syrup 15 Ml) 30 ml FEEDTUBE PRN PRN PRN Reason: Hypoglycemia Sodium Bicarbonate (Sodium Bicarbonate 325 Mg Tab) 325 mg FEEDTUBE PRN PRN PRN Reason: For Clogged Feeding Tube Topiramate (Topiramate Tab 25 Mg Tab) 50 mg PO Q12HR ERINN Last Admin: 10/10/20 09:22 Dose: 50 mg Documented by: Objective Vital Signs - 12hr 10/10/20 10/10/20 10/10/20 08:00 08:10 08:15 Temperature 100.4 F H Pulse Rate 90 76 65 Pulse Rate [ 67 From Monitor] Respiratory 28 H 25 H Rate Blood Pressure 166/94 166/94 162/87 O2 Sat by Pulse 98 99 97 Oximetry 10/10/20 10/10/20 10/10/20 08:25 08:30 08:45 Temperature Pulse Rate 66 64 65 Pulse Rate [ From Monitor] Respiratory 26 H 22 Rate Blood Pressure 162/87 164/91 174/93 O2 Sat by Pulse 97 97 Oximetry 10/10/20 10/10/20 10/10/20 09:00 09:15 09:30 Temperature Pulse Rate 69 67 71 Pulse Rate [ From Monitor] Respiratory 30 H 28 H 28 H Rate Blood Pressure 163/92 159/93 154/92 O2 Sat by Pulse 95 93 94 Oximetry 10/10/20 10/10/20 10/10/20 09:45 10:00 10:15 Temperature Pulse Rate 63 63 62 Pulse Rate [ From Monitor] Respiratory 25 H 26 H 26 H Rate Blood Pressure 153/90 151/94 163/94 O2 Sat by Pulse 95 95 95 Oximetry 10/10/20 10/10/20 10/10/20 10:30 10:45 11:00 Temperature Pulse Rate 62 65 63 Pulse Rate [ From Monitor] Respiratory 26 H 27 H 27 H Rate Blood Pressure 163/95 168/95 168/97 O2 Sat by Pulse 95 95 95 Oximetry 10/10/20 10/10/20 10/10/20 11:15 11:30 11:45 Temperature Pulse Rate 66 62 64 Pulse Rate [ From Monitor] Respiratory 27 H 26 H 27 H Rate Blood Pressure 167/98 172/99 172/99 O2 Sat by Pulse 94 95 98 Oximetry 10/10/20 10/10/20 10/10/20 12:00 12:15 12:30 Temperature 100.2 F H Pulse Rate 63 60 63 Pulse Rate [ 63 From Monitor] Respiratory 28 H 25 H 28 H Rate Blood Pressure 175/95 175/95 167/89 O2 Sat by Pulse 95 98 96 Oximetry 10/10/20 10/10/20 10/10/20 12:45 12:46 12:48 Temperature Pulse Rate 63 64 68 Pulse Rate [ From Monitor] Respiratory 28 H Rate Blood Pressure 171/99 171/99 171/99 O2 Sat by Pulse 95 98 Oximetry 10/10/20 10/10/20 10/10/20 13:00 13:15 13:30 Temperature Pulse Rate 84 88 91 H Pulse Rate [ From Monitor] Respiratory 31 H 33 H 34 H Rate Blood Pressure 169/63 169/63 144/84 O2 Sat by Pulse 93 96 93 Oximetry 10/10/20 10/10/20 10/10/20 13:45 14:00 14:01 Temperature Pulse Rate 89 93 H 93 H Pulse Rate [ From Monitor] Respiratory 32 H 34 H Rate Blood Pressure 134/83 137/90 137/90 O2 Sat by Pulse 94 93 Oximetry 10/10/20 10/10/20 10/10/20 14:15 14:30 14:45 Temperature Pulse Rate 95 H 87 Pulse Rate [ From Monitor] Respiratory 29 H 25 H Rate Blood Pressure 137/90 146/83 142/81 O2 Sat by Pulse 95 94 94 Oximetry 10/10/20 10/10/20 10/10/20 15:01 15:15 15:30 Temperature Pulse Rate 91 H 82 80 Pulse Rate [ From Monitor] Respiratory 31 H 27 H 27 H Rate Blood Pressure 143/120 152/87 150/82 O2 Sat by Pulse 92 92 92 Oximetry 10/10/20 10/10/20 10/10/20 15:45 16:00 16:11 Temperature 98.9 F Pulse Rate 82 82 82 Pulse Rate [ 82 From Monitor] Respiratory 28 H 27 H Rate Blood Pressure 150/82 157/97 157/97 O2 Sat by Pulse 98 97 97 Oximetry 10/10/20 10/10/20 10/10/20 16:15 16:30 16:45 Temperature Pulse Rate 91 H 82 80 Pulse Rate [ From Monitor] Respiratory 30 H 30 H 32 H Rate Blood Pressure 167/89 140/95 143/95 O2 Sat by Pulse 93 92 92 Oximetry 10/10/20 10/10/20 10/10/20 17:00 17:15 17:30 Temperature Pulse Rate 80 86 80 Pulse Rate [ From Monitor] Respiratory 32 H 30 H 28 H Rate Blood Pressure 160/97 171/107 179/94 O2 Sat by Pulse 93 93 93 Oximetry 10/10/20 10/10/20 10/10/20 17:45 17:49 18:00 Temperature Pulse Rate 88 89 107 H Pulse Rate [ From Monitor] Respiratory 30 H 29 H Rate Blood Pressure 179/94 179/94 147/82 O2 Sat by Pulse 97 93 Oximetry 10/10/20 10/10/20 10/10/20 18:15 18:30 18:45 Temperature Pulse Rate 108 H 109 H 109 H Pulse Rate [ From Monitor] Respiratory 31 H 32 H 32 H Rate Blood Pressure 147/82 135/79 139/88 O2 Sat by Pulse 96 91 91 Oximetry 10/10/20 10/10/20 19:00 19:15 Temperature Pulse Rate 105 H 100 H Pulse Rate [ 82 From Monitor] Respiratory 31 H 31 H Rate Blood Pressure 152/84 149/88 O2 Sat by Pulse 94 96 Oximetry Constitutional: comatose, other (critically ill on ventilator) Eyes: non-icteric ENT: oropharynx moist, other (orally intubated and not sedated) Neck: other (large in cirumference) Effort: normal Ascultation: Bilateral: other (coarse BS bilaterally w/ mild faint wheezes) Cardiovascular: regular rate and rhythm, other (no mrg) Gastrointestinal: normoactive bowel sounds, soft, other (post surgical changes with drain on the left side) Extremities: no cyanosis, pink and warm, anasarca Neurologic: other (eyes open, not tracking, not following commands, not moving extremities) Psychiatric: other (unable to assess) CBC and BMP: 10/10/20 04:00 10/10/20 04:00 ABG, PT/INR, D-dimer: ABG ABG pH 7.534 pH Units (7.350-7.450) H 10/10/20 04:42 POC ABG pCO2 33.1 mmHg (32.0-48.0) 10/09/20 04:39 ABG pCO2 25.0 mm Hg 10/10/20 04:42 POC ABG pO2 33.6 mmHg (83-108) L 10/09/20 04:39 ABG pO2 95.2 mm Hg (80.0-90.0) H 10/10/20 04:42 POC ABG HCO3 26 10/09/20 04:39 ABG O2 Saturation 97.9 % (95.0-99.0) 10/10/20 04:42 PT/INR, D-dimer PT 13.0 Sec. (12.2-14.9) 10/05/20 05:00 INR 1.00 (0.87-1.13) 10/05/20 05:00 D-Dimer > 43589 ng/mlDDU (0-234) H 10/04/20 10:00 Abnormal lab findings: Abnormal Labs 10/02/20 10/02/20 10/02/20 12:03 12:18 12:18 WBC 14.9 H RBC Hgb 9.1 L Hct MCV MCH 22 L MCHC 28 L RDW 17.6 H Plt Count 102 L Lymph % (Auto) [place] % (Auto) Lymph # (Auto) [place] # (Auto) Seg Neutrophils % Seg Neuts % (Manual) 36.0 L Lymphocytes % (Manual) 49.0 H Monocytes % (Manual) Nucleated RBC % 6.0 H Seg Neutrophils # Seg Neutrophils # Man Lymphocytes # (Manual) 7.3 H Monocytes # (Manual) PT INR APTT Fibrinogen D-Dimer ABG pH POC ABG pCO2 POC ABG pO2 ABG pO2 ABG HCO3 ABG Base Excess ABG Hemoglobin ABG Oxyhemoglobin ABG Sodium ABG Potassium ABG Chloride ABG Glucose VBG pH Oxyhemoglobin Carboxyhemoglobin Sodium 134 L Potassium Chloride Carbon Dioxide 12 L BUN 6 L Creatinine Glucose 390 H POC Glucose 451 H Lactic Acid Calcium Ionized Calcium Magnesium AST 135 H ALT 85 H Alkaline Phosphatase 172 H Lactate Dehydrogenase 641 H NT-Pro-B Natriuret Pep Total Protein 5.4 L Albumin 2.3 L Arterial Blood Glucose Arterial Blood Ionized Calcium Crossmatch 10/02/20 10/02/20 10/02/20 12:50 13:05 13:05 WBC 38.6 H RBC Hgb 8.9 L Hct 29.0 L MCV 73 L MCH 22 L MCHC RDW 17.2 H Plt Count Lymph % (Auto) [place] % (Auto) Lymph # (Auto) [place] # (Auto) Seg Neutrophils % Seg Neuts % (Manual) Lymphocytes % (Manual) Monocytes % (Manual) Nucleated RBC % 2.0 H Seg Neutrophils # Seg Neutrophils # Man 20.1 H Lymphocytes # (Manual) 10.4 H Monocytes # (Manual) 2.3 H PT INR APTT Fibrinogen D-Dimer ABG pH POC ABG pCO2 POC ABG pO2 ABG pO2 ABG HCO3 ABG Base Excess ABG Hemoglobin ABG Oxyhemoglobin ABG Sodium ABG Potassium ABG Chloride ABG Glucose VBG pH Oxyhemoglobin Carboxyhemoglobin Sodium Potassium Chloride Carbon Dioxide BUN Creatinine Glucose POC Glucose Lactic Acid Calcium Ionized Calcium Magnesium AST 184 H ALT 113 H Alkaline Phosphatase Lactate Dehydrogenase 769 H NT-Pro-B Natriuret Pep Total Protein Albumin Arterial Blood Glucose Arterial Blood Ionized Calcium Crossmatch See Detail 10/02/20 10/02/20 10/02/20 16:25 16:35 16:35 WBC RBC Hgb Hct MCV MCH MCHC RDW Plt Count Lymph % (Auto) [place] % (Auto) Lymph # (Auto) [place] # (Auto) Seg Neutrophils % Seg Neuts % (Manual) Lymphocytes % (Manual) Monocytes % (Manual) Nucleated RBC % Seg Neutrophils # Seg Neutrophils # Man Lymphocytes # (Manual) Monocytes # (Manual) PT INR APTT Fibrinogen D-Dimer ABG pH 7.031 L* POC ABG pCO2 POC ABG pO2 ABG pO2 116.8 H ABG HCO3 12.7 L ABG Base Excess -16.9 L ABG Hemoglobin 7.8 L ABG Oxyhemoglobin ABG Sodium ABG Potassium ABG Chloride ABG Glucose VBG pH Oxyhemoglobin 94.9 L Carboxyhemoglobin Sodium Potassium Chloride Carbon Dioxide BUN Creatinine Glucose 403 H POC Glucose Lactic Acid 11.40 H* Calcium 6.3 L D Ionized Calcium Magnesium AST 70 H ALT Alkaline Phosphatase Lactate Dehydrogenase NT-Pro-B Natriuret Pep Total Protein 1.9 L D Albumin 1.2 L Arterial Blood Glucose Arterial Blood Ionized Calcium Crossmatch 10/02/20 10/02/20 10/02/20 18:18 18:18 22:30 WBC 11.5 H RBC 2.06 L Hgb 5.5 L* D Hct 17.3 L* D MCV MCH 27 L MCHC RDW 19.5 H Plt Count 60 L Lymph % (Auto) [place] % (Auto) Lymph # (Auto) [place] # (Auto) Seg Neutrophils % Seg Neuts % (Manual) Lymphocytes % (Manual) 8.0 L Monocytes % (Manual) 8.0 H Nucleated RBC % 8.0 H Seg Neutrophils # Seg Neutrophils # Man Lymphocytes # (Manual) 0.9 L Monocytes # (Manual) 0.9 H PT 37.1 H INR 3.71 H APTT 135.8 H* Fibrinogen D-Dimer ABG pH 7.067 L* POC ABG pCO2 POC ABG pO2 ABG pO2 183.0 H ABG HCO3 14.1 L ABG Base Excess -15.1 L ABG Hemoglobin 7.7 L ABG Oxyhemoglobin ABG Sodium ABG Potassium ABG Chloride ABG Glucose VBG pH Oxyhemoglobin Carboxyhemoglobin Sodium Potassium Chloride Carbon Dioxide BUN Creatinine Glucose POC Glucose Lactic Acid Calcium Ionized Calcium Magnesium AST ALT Alkaline Phosphatase Lactate Dehydrogenase NT-Pro-B Natriuret Pep Total Protein Albumin Arterial Blood Glucose Arterial Blood Ionized Calcium Crossmatch 10/02/20 10/02/20 10/03/20 Unknown Unknown 00:01 WBC RBC Hgb Hct MCV MCH MCHC RDW Plt Count Lymph % (Auto) [place] % (Auto) Lymph # (Auto) [place] # (Auto) Seg Neutrophils % Seg Neuts % (Manual) Lymphocytes % (Manual) Monocytes % (Manual) Nucleated RBC % Seg Neutrophils # Seg Neutrophils # Man Lymphocytes # (Manual) Monocytes # (Manual) PT 61.1 H INR 6.92 H* APTT 158.7 H* Fibrinogen < 60 L* D-Dimer > 47073 H ABG pH POC ABG pCO2 POC ABG pO2 ABG pO2 ABG HCO3 ABG Base Excess ABG Hemoglobin ABG Oxyhemoglobin ABG Sodium ABG Potassium ABG Chloride ABG Glucose VBG pH 6.949 L* Oxyhemoglobin Carboxyhemoglobin Sodium Potassium Chloride Carbon Dioxide BUN Creatinine Glucose POC Glucose 196 H Lactic Acid Calcium Ionized Calcium Magnesium AST ALT Alkaline Phosphatase Lactate Dehydrogenase NT-Pro-B Natriuret Pep Total Protein Albumin Arterial Blood Glucose Arterial Blood Ionized Calcium Crossmatch 10/03/20 10/03/20 10/03/20 00:40 00:40 00:40 WBC RBC Hgb Hct MCV MCH MCHC RDW Plt Count Lymph % (Auto) [place] % (Auto) Lymph # (Auto) [place] # (Auto) Seg Neutrophils % Seg Neuts % (Manual) Lymphocytes % (Manual) Monocytes % (Manual) Nucleated RBC % Seg Neutrophils # Seg Neutrophils # Man Lymphocytes # (Manual) Monocytes # (Manual) PT 15.1 H INR 1.21 H APTT Fibrinogen D-Dimer ABG pH POC ABG pCO2 POC ABG pO2 ABG pO2 ABG HCO3 ABG Base Excess ABG Hemoglobin ABG Oxyhemoglobin ABG Sodium ABG Potassium ABG Chloride ABG Glucose VBG pH Oxyhemoglobin Carboxyhemoglobin Sodium 136 L Potassium Chloride Carbon Dioxide BUN Creatinine 1.6 H D Glucose 106 H POC Glucose Lactic Acid 5.60 H* Calcium 6.5 L Ionized Calcium Magnesium AST 232 H ALT 104 H Alkaline Phosphatase Lactate Dehydrogenase NT-Pro-B Natriuret Pep Total Protein 3.9 L D Albumin 2.4 L Arterial Blood Glucose Arterial Blood Ionized Calcium Crossmatch 10/03/20 10/03/20 10/03/20 02:08 02:08 02:08 WBC 17.6 H RBC 3.27 L Hgb 9.9 L D Hct 29.9 L D MCV MCH MCHC RDW 16.5 H Plt Count 75 L Lymph % (Auto) [place] % (Auto) Lymph # (Auto) [place] # (Auto) Seg Neutrophils % Seg Neuts % (Manual) 76.0 H Lymphocytes % (Manual) Monocytes % (Manual) Nucleated RBC % 8.0 H Seg Neutrophils # Seg Neutrophils # Man 13.4 H Lymphocytes # (Manual) Monocytes # (Manual) PT INR APTT Fibrinogen D-Dimer ABG pH POC ABG pCO2 POC ABG pO2 ABG pO2 ABG HCO3 ABG Base Excess ABG Hemoglobin ABG Oxyhemoglobin ABG Sodium ABG Potassium ABG Chloride ABG Glucose VBG pH Oxyhemoglobin Carboxyhemoglobin Sodium Potassium Chloride Carbon Dioxide 19 L BUN Creatinine 1.4 H Glucose 306 H POC Glucose Lactic Acid 10.50 H* Calcium 6.4 L Ionized Calcium Magnesium AST ALT Alkaline Phosphatase Lactate Dehydrogenase NT-Pro-B Natriuret Pep Total Protein Albumin Arterial Blood Glucose Arterial Blood Ionized Calcium Crossmatch 10/03/20 10/03/20 10/03/20 02:42 03:59 05:31 WBC RBC Hgb Hct MCV MCH MCHC RDW Plt Count Lymph % (Auto) [place] % (Auto) Lymph # (Auto) [place] # (Auto) Seg Neutrophils % Seg Neuts % (Manual) Lymphocytes % (Manual) Monocytes % (Manual) Nucleated RBC % Seg Neutrophils # Seg Neutrophils # Man Lymphocytes # (Manual) Monocytes # (Manual) PT INR APTT Fibrinogen D-Dimer ABG pH 7.144 L POC ABG pCO2 54.4 H POC ABG pO2 ABG pO2 ABG HCO3 ABG Base Excess ABG Hemoglobin 10.0 L ABG Oxyhemoglobin ABG Sodium ABG Potassium ABG Chloride 108.0 H ABG Glucose 306 H VBG pH Oxyhemoglobin Carboxyhemoglobin Sodium Potassium Chloride Carbon Dioxide BUN Creatinine Glucose POC Glucose 209 H Lactic Acid 9.20 H* Calcium Ionized Calcium Magnesium AST ALT Alkaline Phosphatase Lactate Dehydrogenase NT-Pro-B Natriuret Pep Total Protein Albumin Arterial Blood Glucose 306 H Arterial Blood Ionized Calcium 3.7 L Crossmatch 10/03/20 10/03/20 10/03/20 09:00 09:00 09:00 WBC 27.4 H RBC 2.84 L Hgb 8.5 L Hct 25.1 L MCV MCH MCHC RDW 16.1 H Plt Count 72 L Lymph % (Auto) [place] % (Auto) Lymph # (Auto) [place] # (Auto) Seg Neutrophils % Seg Neuts % (Manual) Lymphocytes % (Manual) 11.0 L Monocytes % (Manual) Nucleated RBC % 3.0 H Seg Neutrophils # Seg Neutrophils # Man 18.4 H Lymphocytes # (Manual) Monocytes # (Manual) 1.9 H PT INR APTT Fibrinogen D-Dimer ABG pH POC ABG pCO2 POC ABG pO2 ABG pO2 ABG HCO3 ABG Base Excess ABG Hemoglobin ABG Oxyhemoglobin ABG Sodium ABG Potassium ABG Chloride ABG Glucose VBG pH Oxyhemoglobin Carboxyhemoglobin Sodium Potassium Chloride Carbon Dioxide BUN Creatinine 1.7 H Glucose 216 H POC Glucose Lactic Acid 9.20 H* Calcium 6.3 L Ionized Calcium Magnesium AST 331 H ALT 171 H Alkaline Phosphatase Lactate Dehydrogenase NT-Pro-B Natriuret Pep Total Protein 3.7 L Albumin 1.9 L Arterial Blood Glucose Arterial Blood Ionized Calcium Crossmatch 10/03/20 10/03/20 10/03/20 11:20 11:46 11:50 WBC 28.7 H RBC 2.67 L Hgb 8.0 L Hct 23.7 L MCV MCH MCHC RDW 16.6 H Plt Count 76 L Lymph % (Auto) [place] % (Auto) Lymph # (Auto) [place] # (Auto) Seg Neutrophils % Seg Neuts % (Manual) Lymphocytes % (Manual) Monocytes % (Manual) Nucleated RBC % Seg Neutrophils # Seg Neutrophils # Man Lymphocytes # (Manual) Monocytes # (Manual) PT INR APTT Fibrinogen D-Dimer ABG pH POC ABG pCO2 POC ABG pO2 ABG pO2 ABG HCO3 ABG Base Excess ABG Hemoglobin ABG Oxyhemoglobin ABG Sodium ABG Potassium ABG Chloride ABG Glucose VBG pH Oxyhemoglobin Carboxyhemoglobin Sodium Potassium Chloride Carbon Dioxide BUN Creatinine Glucose POC Glucose 125 H Lactic Acid 8.00 H* Calcium Ionized Calcium Magnesium AST ALT Alkaline Phosphatase Lactate Dehydrogenase NT-Pro-B Natriuret Pep Total Protein Albumin Arterial Blood Glucose Arterial Blood Ionized Calcium Crossmatch 10/03/20 10/04/20 10/04/20 11:50 00:40 00:40 WBC RBC Hgb 6.8 L Hct 19.4 L* MCV MCH MCHC RDW Plt Count 49 L Lymph % (Auto) [place] % (Auto) Lymph # (Auto) [place] # (Auto) Seg Neutrophils % Seg Neuts % (Manual) Lymphocytes % (Manual) Monocytes % (Manual) Nucleated RBC % Seg Neutrophils # Seg Neutrophils # Man Lymphocytes # (Manual) Monocytes # (Manual) PT INR APTT Fibrinogen D-Dimer ABG pH 7.244 L POC ABG pCO2 POC ABG pO2 ABG pO2 ABG HCO3 ABG Base Excess -4.5 L ABG Hemoglobin 7.3 L ABG Oxyhemoglobin ABG Sodium ABG Potassium ABG Chloride ABG Glucose VBG pH Oxyhemoglobin Carboxyhemoglobin Sodium Potassium Chloride Carbon Dioxide BUN Creatinine Glucose POC Glucose Lactic Acid Calcium Ionized Calcium Magnesium AST ALT Alkaline Phosphatase Lactate Dehydrogenase NT-Pro-B Natriuret Pep Total Protein Albumin Arterial Blood Glucose Arterial Blood Ionized Calcium Crossmatch 10/04/20 10/04/20 10/04/20 03:53 10:00 10:00 WBC 14.6 H RBC 2.57 L Hgb 7.6 L Hct 22.5 L MCV MCH MCHC RDW 15.8 H Plt Count 38 L Lymph % (Auto) 7.7 L [place] % (Auto) Lymph # (Auto) 1.1 L [place] # (Auto) 0.9 H Seg Neutrophils % 85.6 H Seg Neuts % (Manual) Lymphocytes % (Manual) Monocytes % (Manual) Nucleated RBC % Seg Neutrophils # 12.5 H Seg Neutrophils # Man Lymphocytes # (Manual) Monocytes # (Manual) PT INR APTT Fibrinogen D-Dimer ABG pH POC ABG pCO2 POC ABG pO2 110.6 H ABG pO2 ABG HCO3 ABG Base Excess ABG Hemoglobin 6.7 L ABG Oxyhemoglobin ABG Sodium 132.0 L ABG Potassium ABG Chloride ABG Glucose 111 H VBG pH Oxyhemoglobin Carboxyhemoglobin Sodium 134 L D Potassium Chloride 97.6 L Carbon Dioxide BUN Creatinine 1.7 H Glucose POC Glucose Lactic Acid Calcium 6.3 L Ionized Calcium Magnesium AST 203 H ALT 81 H Alkaline Phosphatase Lactate Dehydrogenase NT-Pro-B Natriuret Pep Total Protein 3.9 L Albumin 2.3 L Arterial Blood Glucose 111 H Arterial Blood Ionized Calcium 3.5 L Crossmatch 10/04/20 10/04/20 10/04/20 10:00 10:00 10:14 WBC RBC Hgb Hct MCV MCH MCHC RDW Plt Count Lymph % (Auto) [place] % (Auto) Lymph # (Auto) [place] # (Auto) Seg Neutrophils % Seg Neuts % (Manual) Lymphocytes % (Manual) Monocytes % (Manual) Nucleated RBC % Seg Neutrophils # Seg Neutrophils # Man Lymphocytes # (Manual) Monocytes # (Manual) PT INR APTT Fibrinogen D-Dimer > 85223 H ABG pH POC ABG pCO2 POC ABG pO2 ABG pO2 ABG HCO3 ABG Base Excess ABG Hemoglobin ABG Oxyhemoglobin ABG Sodium ABG Potassium ABG Chloride ABG Glucose VBG pH Oxyhemoglobin Carboxyhemoglobin Sodium Potassium Chloride Carbon Dioxide BUN Creatinine Glucose POC Glucose Lactic Acid 3.90 H* Calcium Ionized Calcium Magnesium AST ALT Alkaline Phosphatase Lactate Dehydrogenase NT-Pro-B Natriuret Pep 2788 H Total Protein Albumin Arterial Blood Glucose Arterial Blood Ionized Calcium Crossmatch 10/04/20 10/04/20 10/04/20 14:00 14:00 18:00 WBC 15.7 H RBC 3.17 L Hgb 9.3 L 9.6 L Hct 27.2 L 28.0 L MCV MCH MCHC RDW 16.9 H Plt Count 41 L Lymph % (Auto) 8.6 L [place] % (Auto) Lymph # (Auto) [place] # (Auto) 0.9 H Seg Neutrophils % 85.4 H Seg Neuts % (Manual) Lymphocytes % (Manual) Monocytes % (Manual) Nucleated RBC % Seg Neutrophils # 13.4 H Seg Neutrophils # Man Lymphocytes # (Manual) Monocytes # (Manual) PT INR APTT Fibrinogen D-Dimer ABG pH POC ABG pCO2 POC ABG pO2 ABG pO2 ABG HCO3 ABG Base Excess ABG Hemoglobin ABG Oxyhemoglobin ABG Sodium ABG Potassium ABG Chloride ABG Glucose VBG pH Oxyhemoglobin Carboxyhemoglobin Sodium 133 L Potassium Chloride 96.4 L Carbon Dioxide BUN 18 H Creatinine 1.7 H Glucose POC Glucose Lactic Acid Calcium 6.3 L Ionized Calcium Magnesium AST ALT Alkaline Phosphatase Lactate Dehydrogenase NT-Pro-B Natriuret Pep Total Protein Albumin Arterial Blood Glucose Arterial Blood Ionized Calcium Crossmatch 10/04/20 10/04/20 10/05/20 18:00 22:00 05:00 WBC 17.6 H RBC 3.34 L Hgb 9.9 L Hct 29.4 L MCV MCH MCHC RDW 17.1 H Plt Count 56 L Lymph % (Auto) 8.5 L [place] % (Auto) Lymph # (Auto) [place] # (Auto) 1.0 H Seg Neutrophils % 85.1 H Seg Neuts % (Manual) Lymphocytes % (Manual) Monocytes % (Manual) Nucleated RBC % Seg Neutrophils # 15.0 H Seg Neutrophils # Man Lymphocytes # (Manual) Monocytes # (Manual) PT INR APTT Fibrinogen D-Dimer ABG pH POC ABG pCO2 POC ABG pO2 ABG pO2 ABG HCO3 ABG Base Excess ABG Hemoglobin ABG Oxyhemoglobin ABG Sodium ABG Potassium ABG Chloride ABG Glucose VBG pH Oxyhemoglobin Carboxyhemoglobin Sodium 136 L Potassium Chloride Carbon Dioxide BUN 18 H Creatinine 1.7 H Glucose POC Glucose Lactic Acid 2.30 H* Calcium 6.6 L Ionized Calcium Magnesium AST ALT Alkaline Phosphatase Lactate Dehydrogenase NT-Pro-B Natriuret Pep Total Protein Albumin Arterial Blood Glucose Arterial Blood Ionized Calcium Crossmatch 10/05/20 10/05/20 10/05/20 05:00 05:00 05:03 WBC RBC Hgb Hct MCV MCH MCHC RDW Plt Count Lymph % (Auto) [place] % (Auto) Lymph # (Auto) [place] # (Auto) Seg Neutrophils % Seg Neuts % (Manual) Lymphocytes % (Manual) Monocytes % (Manual) Nucleated RBC % Seg Neutrophils # Seg Neutrophils # Man Lymphocytes # (Manual) Monocytes # (Manual) PT INR APTT Fibrinogen D-Dimer ABG pH 7.458 H POC ABG pCO2 POC ABG pO2 ABG pO2 74.3 L ABG HCO3 27.5 H ABG Base Excess 3.4 H ABG Hemoglobin 10.0 L ABG Oxyhemoglobin ABG Sodium ABG Potassium ABG Chloride ABG Glucose VBG pH Oxyhemoglobin 94.9 L Carboxyhemoglobin Sodium Potassium Chloride Carbon Dioxide BUN 19 H Creatinine 1.8 H Glucose POC Glucose Lactic Acid Calcium 6.8 L Ionized Calcium 3.9 L Magnesium AST 225 H ALT 85 H Alkaline Phosphatase Lactate Dehydrogenase NT-Pro-B Natriuret Pep Total Protein 4.5 L Albumin 2.7 L Arterial Blood Glucose Arterial Blood Ionized Calcium Crossmatch 10/05/20 10/05/20 10/05/20 10:10 15:00 19:40 WBC RBC Hgb Hct MCV MCH MCHC RDW Plt Count Lymph % (Auto) Gregg % (Auto) Lymph # (Auto) Gregg # (Auto) Seg Neutrophils % Seg Neuts % (Manual) Lymphocytes % (Manual) Monocytes % (Manual) Nucleated RBC % Seg Neutrophils # Seg Neutrophils # Man Lymphocytes # (Manual) Monocytes # (Manual) PT INR APTT Fibrinogen D-Dimer ABG pH POC ABG pCO2 POC ABG pO2 ABG pO2 ABG HCO3 ABG Base Excess ABG Hemoglobin ABG Oxyhemoglobin ABG Sodium ABG Potassium ABG Chloride ABG Glucose VBG pH Oxyhemoglobin Carboxyhemoglobin Sodium Potassium 3.5 L Chloride Carbon Dioxide 31 H 32 H BUN 19 H 19 H Creatinine 1.8 H 1.8 H Glucose POC Glucose Lactic Acid Calcium 7.0 L 7.2 L Ionized Calcium Magnesium 2.90 H AST ALT Alkaline Phosphatase Lactate Dehydrogenase NT-Pro-B Natriuret Pep Total Protein Albumin Arterial Blood Glucose Arterial Blood Ionized Calcium Crossmatch 10/06/20 10/06/20 10/06/20 01:05 03:12 04:00 WBC 17.1 H RBC 3.47 L Hgb Hct MCV MCH MCHC RDW 17.4 H Plt Count 82 L Lymph % (Auto) 8.3 L Gregg % (Auto) Lymph # (Auto) Gregg # (Auto) 1.1 H Seg Neutrophils % 83.8 H Seg Neuts % (Manual) Lymphocytes % (Manual) Monocytes % (Manual) Nucleated RBC % Seg Neutrophils # 14.3 H Seg Neutrophils # Man Lymphocytes # (Manual) Monocytes # (Manual) PT INR APTT Fibrinogen D-Dimer ABG pH 7.474 H POC ABG pCO2 POC ABG pO2 129.5 H ABG pO2 ABG HCO3 ABG Base Excess ABG Hemoglobin 11.4 L ABG Oxyhemoglobin ABG Sodium 131.8 L ABG Potassium ABG Chloride ABG Glucose 103 H VBG pH Oxyhemoglobin Carboxyhemoglobin 0.3 L Sodium Potassium Chloride Carbon Dioxide BUN Creatinine Glucose POC Glucose Lactic Acid Calcium Ionized Calcium Magnesium 3.70 H AST ALT Alkaline Phosphatase Lactate Dehydrogenase NT-Pro-B Natriuret Pep Total Protein Albumin Arterial Blood Glucose 103 H Arterial Blood Ionized Calcium 4.2 L Crossmatch 10/06/20 10/06/20 10/06/20 04:00 05:31 08:12 WBC RBC Hgb Hct MCV MCH MCHC RDW Plt Count Lymph % (Auto) Gregg % (Auto) Lymph # (Auto) Gregg # (Auto) Seg Neutrophils % Seg Neuts % (Manual) Lymphocytes % (Manual) Monocytes % (Manual) Nucleated RBC % Seg Neutrophils # Seg Neutrophils # Man Lymphocytes # (Manual) Monocytes # (Manual) PT INR APTT Fibrinogen D-Dimer ABG pH POC ABG pCO2 POC ABG pO2 ABG pO2 ABG HCO3 ABG Base Excess ABG Hemoglobin ABG Oxyhemoglobin ABG Sodium ABG Potassium ABG Chloride ABG Glucose VBG pH Oxyhemoglobin Carboxyhemoglobin Sodium Potassium 3.5 L Chloride Carbon Dioxide BUN 19 H Creatinine 1.8 H Glucose 102 H POC Glucose 116 H Lactic Acid Calcium 7.2 L Ionized Calcium Magnesium 5.40 H AST 307 H ALT 137 H Alkaline Phosphatase Lactate Dehydrogenase NT-Pro-B Natriuret Pep Total Protein 4.5 L Albumin 2.6 L Arterial Blood Glucose Arterial Blood Ionized Calcium Crossmatch 10/06/20 10/06/20 10/06/20 11:00 11:50 20:13 WBC RBC Hgb Hct MCV MCH MCHC RDW Plt Count Lymph % (Auto) Gregg % (Auto) Lymph # (Auto) Gregg # (Auto) Seg Neutrophils % Seg Neuts % (Manual) Lymphocytes % (Manual) Monocytes % (Manual) Nucleated RBC % Seg Neutrophils # Seg Neutrophils # Man Lymphocytes # (Manual) Monocytes # (Manual) PT INR APTT Fibrinogen D-Dimer ABG pH POC ABG pCO2 POC ABG pO2 ABG pO2 ABG HCO3 ABG Base Excess ABG Hemoglobin ABG Oxyhemoglobin ABG Sodium ABG Potassium ABG Chloride ABG Glucose VBG pH Oxyhemoglobin Carboxyhemoglobin Sodium Potassium Chloride Carbon Dioxide BUN Creatinine Glucose POC Glucose 106 H Lactic Acid Calcium Ionized Calcium Magnesium 6.50 H 6.20 H AST ALT Alkaline Phosphatase Lactate Dehydrogenase NT-Pro-B Natriuret Pep Total Protein Albumin Arterial Blood Glucose Arterial Blood Ionized Calcium Crossmatch 10/06/20 10/06/20 10/06/20 20:17 22:29 23:57 WBC RBC Hgb Hct MCV MCH MCHC RDW Plt Count Lymph % (Auto) Gregg % (Auto) Lymph # (Auto) Gregg # (Auto) Seg Neutrophils % Seg Neuts % (Manual) Lymphocytes % (Manual) Monocytes % (Manual) Nucleated RBC % Seg Neutrophils # Seg Neutrophils # Man Lymphocytes # (Manual) Monocytes # (Manual) PT INR APTT Fibrinogen D-Dimer ABG pH POC ABG pCO2 POC ABG pO2 ABG pO2 ABG HCO3 ABG Base Excess ABG Hemoglobin ABG Oxyhemoglobin ABG Sodium ABG Potassium ABG Chloride ABG Glucose VBG pH Oxyhemoglobin Carboxyhemoglobin Sodium Potassium Chloride Carbon Dioxide BUN Creatinine Glucose POC Glucose 112 H 126 H 133 H Lactic Acid Calcium Ionized Calcium Magnesium AST ALT Alkaline Phosphatase Lactate Dehydrogenase NT-Pro-B Natriuret Pep Total Protein Albumin Arterial Blood Glucose Arterial Blood Ionized Calcium Crossmatch 10/07/20 10/07/20 10/07/20 00:35 02:22 03:16 WBC RBC Hgb Hct MCV MCH MCHC RDW Plt Count Lymph % (Auto) Gregg % (Auto) Lymph # (Auto) Gregg # (Auto) Seg Neutrophils % Seg Neuts % (Manual) Lymphocytes % (Manual) Monocytes % (Manual) Nucleated RBC % Seg Neutrophils # Seg Neutrophils # Man Lymphocytes # (Manual) Monocytes # (Manual) PT INR APTT Fibrinogen D-Dimer ABG pH POC ABG pCO2 POC ABG pO2 ABG pO2 ABG HCO3 ABG Base Excess ABG Hemoglobin 11.6 L ABG Oxyhemoglobin ABG Sodium ABG Potassium ABG Chloride ABG Glucose 156 H VBG pH Oxyhemoglobin Carboxyhemoglobin 0.3 L Sodium Potassium Chloride Carbon Dioxide BUN Creatinine Glucose POC Glucose 124 H Lactic Acid Calcium Ionized Calcium Magnesium 5.90 H AST ALT Alkaline Phosphatase Lactate Dehydrogenase NT-Pro-B Natriuret Pep Total Protein Albumin Arterial Blood Glucose 156 H Arterial Blood Ionized Calcium 4.2 L Crossmatch 10/07/20 10/07/20 10/07/20 04:06 05:45 07:05 WBC 19.2 H RBC 3.57 L Hgb Hct MCV MCH MCHC 35 H RDW 17.1 H Plt Count 129 L Lymph % (Auto) Gregg % (Auto) Lymph # (Auto) Gregg # (Auto) Seg Neutrophils % Seg Neuts % (Manual) 94.0 H Lymphocytes % (Manual) 6.0 L Monocytes % (Manual) Nucleated RBC % Seg Neutrophils # Seg Neutrophils # Man 18.0 H Lymphocytes # (Manual) Monocytes # (Manual) PT INR APTT Fibrinogen D-Dimer ABG pH POC ABG pCO2 POC ABG pO2 ABG pO2 ABG HCO3 ABG Base Excess ABG Hemoglobin ABG Oxyhemoglobin ABG Sodium ABG Potassium ABG Chloride ABG Glucose VBG pH Oxyhemoglobin Carboxyhemoglobin Sodium Potassium Chloride Carbon Dioxide BUN Creatinine Glucose POC Glucose 135 H 149 H Lactic Acid Calcium Ionized Calcium Magnesium AST ALT Alkaline Phosphatase Lactate Dehydrogenase NT-Pro-B Natriuret Pep Total Protein Albumin Arterial Blood Glucose Arterial Blood Ionized Calcium Crossmatch 10/07/20 10/07/20 10/07/20 07:05 07:05 12:21 WBC RBC Hgb Hct MCV MCH MCHC RDW Plt Count Lymph % (Auto) Gregg % (Auto) Lymph # (Auto) Gregg # (Auto) Seg Neutrophils % Seg Neuts % (Manual) Lymphocytes % (Manual) Monocytes % (Manual) Nucleated RBC % Seg Neutrophils # Seg Neutrophils # Man Lymphocytes # (Manual) Monocytes # (Manual) PT INR APTT Fibrinogen D-Dimer ABG pH POC ABG pCO2 POC ABG pO2 ABG pO2 ABG HCO3 ABG Base Excess ABG Hemoglobin ABG Oxyhemoglobin ABG Sodium ABG Potassium ABG Chloride ABG Glucose VBG pH Oxyhemoglobin Carboxyhemoglobin Sodium Potassium Chloride Carbon Dioxide BUN 21 H Creatinine 1.7 H Glucose 171 H POC Glucose 124 H Lactic Acid Calcium 7.4 L Ionized Calcium Magnesium 6.10 H AST 245 H ALT 147 H Alkaline Phosphatase Lactate Dehydrogenase NT-Pro-B Natriuret Pep Total Protein 5.3 L Albumin 2.8 L Arterial Blood Glucose Arterial Blood Ionized Calcium Crossmatch 10/07/20 10/07/20 10/07/20 19:52 21:50 23:41 WBC RBC Hgb Hct MCV MCH MCHC RDW Plt Count Lymph % (Auto) Gregg % (Auto) Lymph # (Auto) Gregg # (Auto) Seg Neutrophils % Seg Neuts % (Manual) Lymphocytes % (Manual) Monocytes % (Manual) Nucleated RBC % Seg Neutrophils # Seg Neutrophils # Man Lymphocytes # (Manual) Monocytes # (Manual) PT INR APTT Fibrinogen D-Dimer ABG pH POC ABG pCO2 POC ABG pO2 ABG pO2 ABG HCO3 ABG Base Excess ABG Hemoglobin ABG Oxyhemoglobin ABG Sodium ABG Potassium ABG Chloride ABG Glucose VBG pH Oxyhemoglobin Carboxyhemoglobin Sodium Potassium Chloride Carbon Dioxide BUN Creatinine Glucose POC Glucose 193 H 138 H 118 H Lactic Acid Calcium Ionized Calcium Magnesium AST ALT Alkaline Phosphatase Lactate Dehydrogenase NT-Pro-B Natriuret Pep Total Protein Albumin Arterial Blood Glucose Arterial Blood Ionized Calcium Crossmatch 10/08/20 10/08/20 10/08/20 04:20 05:30 05:43 WBC RBC Hgb Hct MCV MCH MCHC RDW Plt Count Lymph % (Auto) Gregg % (Auto) Lymph # (Auto) Gregg # (Auto) Seg Neutrophils % Seg Neuts % (Manual) Lymphocytes % (Manual) Monocytes % (Manual) Nucleated RBC % Seg Neutrophils # Seg Neutrophils # Man Lymphocytes # (Manual) Monocytes # (Manual) PT INR APTT Fibrinogen D-Dimer ABG pH 7.467 H POC ABG pCO2 POC ABG pO2 189.8 H ABG pO2 ABG HCO3 ABG Base Excess ABG Hemoglobin 10.8 L ABG Oxyhemoglobin ABG Sodium ABG Potassium ABG Chloride ABG Glucose 133 H VBG pH Oxyhemoglobin Carboxyhemoglobin Sodium Potassium Chloride Carbon Dioxide BUN Creatinine Glucose POC Glucose 114 H 126 H Lactic Acid Calcium Ionized Calcium Magnesium AST ALT Alkaline Phosphatase Lactate Dehydrogenase NT-Pro-B Natriuret Pep Total Protein Albumin Arterial Blood Glucose 133 H Arterial Blood Ionized Calcium 4.2 L Crossmatch 10/08/20 10/08/20 10/08/20 06:42 06:42 11:20 WBC 23.6 H RBC 3.54 L Hgb Hct MCV MCH MCHC RDW 17.8 H Plt Count Lymph % (Auto) Gregg % (Auto) Lymph # (Auto) Gregg # (Auto) Seg Neutrophils % Seg Neuts % (Manual) 93.0 H Lymphocytes % (Manual) 3.0 L Monocytes % (Manual) Nucleated RBC % 1.0 H Seg Neutrophils # Seg Neutrophils # Man 21.9 H Lymphocytes # (Manual) 0.7 L Monocytes # (Manual) 0.9 H PT INR APTT Fibrinogen D-Dimer ABG pH POC ABG pCO2 POC ABG pO2 ABG pO2 ABG HCO3 ABG Base Excess ABG Hemoglobin ABG Oxyhemoglobin ABG Sodium ABG Potassium ABG Chloride ABG Glucose VBG pH Oxyhemoglobin Carboxyhemoglobin Sodium Potassium Chloride Carbon Dioxide BUN 28 H Creatinine 1.6 H Glucose 141 H POC Glucose 127 H Lactic Acid Calcium 7.6 L Ionized Calcium Magnesium AST 162 H ALT 103 H Alkaline Phosphatase Lactate Dehydrogenase NT-Pro-B Natriuret Pep Total Protein 5.4 L Albumin 2.7 L Arterial Blood Glucose Arterial Blood Ionized Calcium Crossmatch 10/08/20 10/08/20 10/08/20 16:05 20:14 21:27 WBC RBC Hgb Hct MCV MCH MCHC RDW Plt Count Lymph % (Auto) Gregg % (Auto) Lymph # (Auto) [place]gg # (Auto) Seg Neutrophils % Seg Neuts % (Manual) Lymphocytes % (Manual) Monocytes % (Manual) Nucleated RBC % Seg Neutrophils # Seg Neutrophils # Man Lymphocytes # (Manual) Monocytes # (Manual) PT INR APTT Fibrinogen D-Dimer ABG pH POC ABG pCO2 POC ABG pO2 ABG pO2 ABG HCO3 ABG Base Excess ABG Hemoglobin ABG Oxyhemoglobin ABG Sodium ABG Potassium ABG Chloride ABG Glucose VBG pH Oxyhemoglobin Carboxyhemoglobin Sodium Potassium Chloride Carbon Dioxide BUN Creatinine Glucose POC Glucose 172 H 147 H 140 H Lactic Acid Calcium Ionized Calcium Magnesium AST ALT Alkaline Phosphatase Lactate Dehydrogenase NT-Pro-B Natriuret Pep Total Protein Albumin Arterial Blood Glucose Arterial Blood Ionized Calcium Crossmatch 10/08/20 10/09/20 10/09/20 23:24 02:10 03:44 WBC RBC Hgb Hct MCV MCH MCHC RDW Plt Count Lymph % (Auto) Gregg % (Auto) Lymph # (Auto) [place]gg # (Auto) Seg Neutrophils % Seg Neuts % (Manual) Lymphocytes % (Manual) Monocytes % (Manual) Nucleated RBC % Seg Neutrophils # Seg Neutrophils # Man Lymphocytes # (Manual) Monocytes # (Manual) PT INR APTT Fibrinogen D-Dimer ABG pH POC ABG pCO2 POC ABG pO2 ABG pO2 ABG HCO3 ABG Base Excess ABG Hemoglobin ABG Oxyhemoglobin ABG Sodium ABG Potassium ABG Chloride ABG Glucose VBG pH Oxyhemoglobin Carboxyhemoglobin Sodium Potassium Chloride Carbon Dioxide BUN Creatinine Glucose POC Glucose 135 H 111 H 109 H Lactic Acid Calcium Ionized Calcium Magnesium AST ALT Alkaline Phosphatase Lactate Dehydrogenase NT-Pro-B Natriuret Pep Total Protein Albumin Arterial Blood Glucose Arterial Blood Ionized Calcium Crossmatch 10/09/20 10/09/20 10/09/20 04:39 05:46 05:46 WBC 19.7 H RBC 3.51 L Hgb Hct MCV MCH MCHC RDW 17.7 H Plt Count Lymph % (Auto) [place] % (Auto) Lymph # (Auto) [place] # (Auto) Seg Neutrophils % Seg Neuts % (Manual) 86.0 H Lymphocytes % (Manual) 4.0 L Monocytes % (Manual) 9.0 H Nucleated RBC % Seg Neutrophils # Seg Neutrophils # Man 16.9 H Lymphocytes # (Manual) 0.8 L Monocytes # (Manual) 1.8 H PT INR APTT Fibrinogen D-Dimer ABG pH 7.513 H POC ABG pCO2 POC ABG pO2 33.6 L ABG pO2 ABG HCO3 ABG Base Excess ABG Hemoglobin 11.1 L ABG Oxyhemoglobin 70.2 L ABG Sodium ABG Potassium 3.2 L ABG Chloride 108.0 H ABG Glucose 108 H VBG pH Oxyhemoglobin Carboxyhemoglobin Sodium Potassium 3.2 L Chloride 108.9 H Carbon Dioxide BUN 34 H Creatinine 1.4 H Glucose 109 H POC Glucose Lactic Acid Calcium 7.6 L Ionized Calcium Magnesium AST 137 H ALT 99 H Alkaline Phosphatase Lactate Dehydrogenase NT-Pro-B Natriuret Pep Total Protein 5.1 L Albumin 2.6 L Arterial Blood Glucose 108 H Arterial Blood Ionized Calcium 4.3 L Crossmatch 10/10/20 10/10/20 10/10/20 04:00 04:00 04:42 WBC 18.4 H RBC Hgb Hct MCV MCH MCHC RDW 17.5 H Plt Count Lymph % (Auto) 9.8 L Gregg % (Auto) 8.8 H Lymph # (Auto) [place]gg # (Auto) 1.6 H Seg Neutrophils % 80.0 H Seg Neuts % (Manual) Lymphocytes % (Manual) Monocytes % (Manual) Nucleated RBC % Seg Neutrophils # 14.7 H Seg Neutrophils # Man Lymphocytes # (Manual) Monocytes # (Manual) PT INR APTT Fibrinogen D-Dimer ABG pH 7.534 H POC ABG pCO2 POC ABG pO2 ABG pO2 95.2 H ABG HCO3 ABG Base Excess ABG Hemoglobin 11.3 L ABG Oxyhemoglobin ABG Sodium ABG Potassium ABG Chloride ABG Glucose VBG pH Oxyhemoglobin Carboxyhemoglobin Sodium 146 H Potassium 2.9 L* Chloride 112.6 H Carbon Dioxide BUN 28 H Creatinine 1.3 H Glucose 101 H POC Glucose Lactic Acid Calcium 7.8 L Ionized Calcium Magnesium AST 122 H ALT 81 H Alkaline Phosphatase Lactate Dehydrogenase NT-Pro-B Natriuret Pep Total Protein 5.2 L Albumin 2.7 L Arterial Blood Glucose Arterial Blood Ionized Calcium Crossmatch 10/10/20 09:50 WBC RBC Hgb Hct MCV MCH MCHC RDW Plt Count Lymph % (Auto) Gregg % (Auto) Lymph # (Auto) [place]gg # (Auto) Seg Neutrophils % Seg Neuts % (Manual) Lymphocytes % (Manual) Monocytes % (Manual) Nucleated RBC % Seg Neutrophils # Seg Neutrophils # Man Lymphocytes # (Manual) Monocytes # (Manual) PT INR APTT Fibrinogen D-Dimer ABG pH POC ABG pCO2 POC ABG pO2 ABG pO2 ABG HCO3 ABG Base Excess ABG Hemoglobin ABG Oxyhemoglobin ABG Sodium ABG Potassium ABG Chloride ABG Glucose VBG pH Oxyhemoglobin Carboxyhemoglobin Sodium Potassium Chloride Carbon Dioxide BUN Creatinine Glucose POC Glucose 109 H Lactic Acid Calcium Ionized Calcium Magnesium AST ALT Alkaline Phosphatase Lactate Dehydrogenase NT-Pro-B Natriuret Pep Total Protein Albumin Arterial Blood Glucose Arterial Blood Ionized Calcium Crossmatch Chest x-ray: report reviewed, image reviewed (increasing interstitial edema)
[2020-10-10] MEDS: fentaNYL 100 MCG/2 ML INJ IV PRN (20:07)
[2020-10-10] MEDS ORDERED: FUROSEMIDE 20 MG/2 ML INJ IV ONE (20:53)
--- NOTE | 2020-10-10 21:05 | Progress Note ---
Assessment and Plan Impression: * Nonoliguric acute kidney injury secondary to ischemic ATN * Cardiac arrest * Shock * Acute hypoxic respiratory failure * Acute encephalopathy * DIC * Anemia secondary to acute blood loss * hemorrhage * Mixed respiratory/metabolic acidosis * Presumed eclampsia * Hypokalemia * Hypocalcemia * Transaminitis * Covid PUI Plan: * Renal function is stable. There is no need for renal replacement therapy at this time * Ordered potassium repletion. Recheck labs. BMP reordered. * Pulmonology note reviewed. Agree with Lasix dosing, following potassium repletion to goal range. * Transfusion of blood products per primary team and hematology * Pressors prn to maintain MAP>65 * Reviewed ID note * Reviewed OB note * Strict I/O * Vent management per pulmonary/CCM * Dose medications for renal function * Avoid potential nephrotoxins * Follow-up Covid results Subjective Date of service: 10/10/20 Principal diagnosis: Eclampsia/HELLP Syndrome, ADOLPH, DIC; s/p , s/p supracervical hyst Interval history: Patient was seen for her renal issues Nursing, interdisciplinary and consult notes were reviewed Vitals, input and output, medications and labs were reviewed Neurologic status remains unchanged Objective - Exam Narrative Exam: Deferred as patient is Covid PUI to prevent spread of infection and PPE conservation. Primary team exam reviewed. - Vital Signs Vital signs: Vital Signs - 12hr 10/10/20 10/10/20 10/10/20 09:15 09:30 09:45 Temperature Pulse Rate 67 71 63 Pulse Rate [ From Monitor] Respiratory 28 H 28 H 25 H Rate Blood Pressure 159/93 154/92 153/90 O2 Sat by Pulse 93 94 95 Oximetry 10/10/20 10/10/20 10/10/20 10:00 10:15 10:30 Temperature Pulse Rate 63 62 62 Pulse Rate [ From Monitor] Respiratory 26 H 26 H 26 H Rate Blood Pressure 151/94 163/94 163/95 O2 Sat by Pulse 95 95 95 Oximetry 10/10/20 10/10/20 10/10/20 10:45 11:00 11:15 Temperature Pulse Rate 65 63 66 Pulse Rate [ From Monitor] Respiratory 27 H 27 H 27 H Rate Blood Pressure 168/95 168/97 167/98 O2 Sat by Pulse 95 95 94 Oximetry 10/10/20 10/10/20 10/10/20 11:30 11:45 12:00 Temperature 100.2 F H Pulse Rate 62 64 63 Pulse Rate [ 63 From Monitor] Respiratory 26 H 27 H 28 H Rate Blood Pressure 172/99 172/99 175/95 O2 Sat by Pulse 95 98 95 Oximetry 10/10/20 10/10/20 10/10/20 12:15 12:30 12:45 Temperature Pulse Rate 60 63 63 Pulse Rate [ From Monitor] Respiratory 25 H 28 H 28 H Rate Blood Pressure 175/95 167/89 171/99 O2 Sat by Pulse 98 96 95 Oximetry 10/10/20 10/10/20 10/10/20 12:46 12:48 13:00 Temperature Pulse Rate 64 68 84 Pulse Rate [ From Monitor] Respiratory 31 H Rate Blood Pressure 171/99 171/99 169/63 O2 Sat by Pulse 98 93 Oximetry 10/10/20 10/10/20 10/10/20 13:15 13:30 13:45 Temperature Pulse Rate 88 91 H 89 Pulse Rate [ From Monitor] Respiratory 33 H 34 H 32 H Rate Blood Pressure 169/63 144/84 134/83 O2 Sat by Pulse 96 93 94 Oximetry 10/10/20 10/10/20 10/10/20 14:00 14:01 14:15 Temperature Pulse Rate 93 H 93 H Pulse Rate [ From Monitor] Respiratory 34 H Rate Blood Pressure 137/90 137/90 137/90 O2 Sat by Pulse 93 95 Oximetry 10/10/20 10/10/20 10/10/20 14:30 14:45 15:01 Temperature Pulse Rate 95 H 87 91 H Pulse Rate [ From Monitor] Respiratory 29 H 25 H 31 H Rate Blood Pressure 146/83 142/81 143/120 O2 Sat by Pulse 94 94 92 Oximetry 10/10/20 10/10/20 10/10/20 15:15 15:30 15:45 Temperature Pulse Rate 82 80 82 Pulse Rate [ From Monitor] Respiratory 27 H 27 H 28 H Rate Blood Pressure 152/87 150/82 150/82 O2 Sat by Pulse 92 92 98 Oximetry 10/10/20 10/10/20 10/10/20 16:00 16:11 16:15 Temperature 98.9 F Pulse Rate 82 82 91 H Pulse Rate [ 82 From Monitor] Respiratory 27 H 30 H Rate Blood Pressure 157/97 157/97 167/89 O2 Sat by Pulse 97 97 93 Oximetry 10/10/20 10/10/20 10/10/20 16:30 16:45 17:00 Temperature Pulse Rate 82 80 80 Pulse Rate [ From Monitor] Respiratory 30 H 32 H 32 H Rate Blood Pressure 140/95 143/95 160/97 O2 Sat by Pulse 92 92 93 Oximetry 10/10/20 10/10/20 10/10/20 17:15 17:30 17:45 Temperature Pulse Rate 86 80 88 Pulse Rate [ From Monitor] Respiratory 30 H 28 H 30 H Rate Blood Pressure 171/107 179/94 179/94 O2 Sat by Pulse 93 93 97 Oximetry 10/10/20 10/10/20 10/10/20 17:49 18:00 18:15 Temperature Pulse Rate 89 107 H 108 H Pulse Rate [ From Monitor] Respiratory 29 H 31 H Rate Blood Pressure 179/94 147/82 147/82 O2 Sat by Pulse 93 96 Oximetry 10/10/20 10/10/20 10/10/20 18:30 18:45 19:00 Temperature Pulse Rate 109 H 109 H 105 H Pulse Rate [ 82 From Monitor] Respiratory 32 H 32 H 31 H Rate Blood Pressure 135/79 139/88 152/84 O2 Sat by Pulse 91 91 94 Oximetry 10/10/20 10/10/20 10/10/20 19:15 19:30 19:45 Temperature Pulse Rate 100 H 98 H 108 H Pulse Rate [ From Monitor] Respiratory 31 H 31 H 32 H Rate Blood Pressure 149/88 157/84 171/98 O2 Sat by Pulse 96 96 94 Oximetry 10/10/20 10/10/20 20:00 20:26 Temperature 100.9 F H Pulse Rate 99 H 95 H Pulse Rate [ From Monitor] Respiratory 30 H Rate Blood Pressure 161/90 150/89 O2 Sat by Pulse 94 98 Oximetry - Lab 10/10/20 04:00 10/10/20 04:00 Most recent lab results ABG pH 7.534 pH Units (7.350-7.450) H 10/10/20 04:42 ABG pCO2 25.0 mm Hg 10/10/20 04:42 ABG pO2 95.2 mm Hg (80.0-90.0) H 10/10/20 04:42 ABG HCO3 20.6 mmol/L (20.0-26.0) 10/10/20 04:42 ABG O2 Saturation 97.9 % (95.0-99.0) 10/10/20 04:42 Calcium 7.8 mg/dL (8.4-10.2) L 10/10/20 04:00 Phosphorus 2.80 mg/dL (2.5-4.5) 10/10/20 04:00 Magnesium 1.80 mg/dL (1.7-2.3) 10/10/20 04:00 Medications & Allergies - Medications Allergies/Adverse Reactions: Allergies egg Allergy (Severe, Verified 05/22/20 16:09) Anaphylaxis NSAIDS (Non-Steroidal Anti-Inflamma Allergy (Severe, Verified 05/22/20 16:09) Unknown pt c/o Palpitations, nervous, had to take benadryl Sulfa (Sulfonamide Antibiotics) Allergy (Severe, Verified 05/22/20 16:09) Anaphylaxis SWELING,NUMBNESS ibuprofen Allergy (Intermediate, Verified 05/22/20 16:09) Bleeding latex Allergy (Verified 05/22/20 16:09) Hives plecanatide [From Trulance] Allergy (Verified 05/22/20 16:09) Anaphylaxis adhesive tape Adverse Reaction (Intermediate, Verified 05/22/20 16:09) Unknown PAPER TAPE OK metoclopramide [From Reglan] Adverse Reaction (Verified 05/22/20 16:09) Unknown Home Medications: Home Medications Medication Instructions Recorded Confirmed Last Taken Type Pantoprazole [Protonix TAB] 20 mg PO DAILY 05/10/19 08/20/20 05/10/19 05:00 History busPIRone 15 mg PO DAILY 01/15/20 08/20/20 Unknown History Albuterol Sulfate [Proventil Hfa] 6.7 gm IH Q4HR PRN #1 hfa.aer.ad 04/07/20 08/20/20 Unknown Rx Topiramate (Nf) [Trokendi XR CAP] 100 mg PO DAILY 08/20/20 08/20/20 Unknown History oxyCODONE /ACETAMINOPHEN [Percocet 1 tab PO Q6HR 08/20/20 08/20/20 Unknown History 5/325 mg] Active Medications: Generic Name Dose Route Start Last Admin Trade Name Freq PRN Reason Stop Dose Admin Acetaminophen 650 mg 10/05/20 16:34 10/10/20 08:46 Acetaminophen 325 Mg/10.15 Ml Oral Liqd Unit Dose FEEDTUBE 650 mg Q6H PRN Administration Non Cardiac Pain or Temp>100.5 Albuterol/Ipratropium 1 ampul 10/10/20 20:00 Ipratropium/Albuterol Sulfate 3 Ml Ampul.Neb IH Q8HRT ERINN Lipase/Protease/Amylase 1 each 10/05/20 11:09 Lipase 10,500/Protease 25,000/Amylase 43,750 (Units) Dr Barakat FEEDTUBE PRN PRN For Clogged Feeding Tube Buspirone HCl 10 mg 10/10/20 10:00 10/10/20 09:23 Buspirone 10 Mg Tab PO 10 mg BID ERINN Administration Buspirone HCl 5 mg 10/10/20 10:00 10/10/20 09:25 Buspirone 5 Mg Tab PO 5 mg BID ERINN Administration Famotidine 20 mg 10/07/20 10:00 10/10/20 09:22 Famotidine 20 Mg Tab PO 20 mg BID ERINN Administration Fentanyl 50 mcg 10/10/20 19:54 10/10/20 20:07 Fentanyl 100 Mcg/2 Ml Inj IV 50 mcg Q3HR PRN Administration Labored breathing Hydralazine HCl 20 mg 10/07/20 11:49 10/10/20 17:49 Hydralazine 20 Mg/1 Ml Inj IV 20 mg Q6H PRN Administration SBP >170 Hydrophilic Ointment 1 applic 10/04/20 06:55 Lip Therapy Vaseline TP Q2HR PRN Dry Lips Dextrose 1,000 mls @ 75 mls/hr 10/04/20 18:50 10/10/20 06:31 D10w IV 75 mls/hr DIRECT ERINN Administration Cefepime HCl 2 gm in 100 mls @ 200 mls/hr 10/05/20 17:00 10/10/20 17:46 Cefepime/Ns 2 Gm/100 Ml IV 10/10/20 23:59 200 mls/hr Q12H ERINN Administration Protocol Dexmedetomidine HCl 400 mcg/ 104 mls @ 7.249 mls/hr 10/08/20 10:00 10/10/20 20:10 Sodium Chloride IV 0.5 mcg/kg/hr TITRATE ERINN 18.122 mls/hr Administration Protocol 0.2 MCG/KG/HR Labetalol HCl 100 mg 10/07/20 14:00 10/10/20 14:01 Labetalol 100 Mg Tab PO 100 mg TID ERINN Administration Lorazepam 2 mg 10/02/20 22:05 10/10/20 16:56 Lorazepam 2 Mg/Ml Vial IV 2 mg Q2H PRN Administration Seizures Multi-Ingred Cream/Lotion/Oil/Oint 1 applic 10/04/20 06:55 Mineral Oil/Petrolatum, White Ophth Oint 3.5 Gm OU Q4HR PRN Dry Eye(s) Simple Syrup 15 ml 10/05/20 11:09 Simple Syrup 15 Ml FEEDTUBE PRN PRN Hypoglycemia Simple Syrup 30 ml 10/05/20 11:09 Simple Syrup 15 Ml FEEDTUBE PRN PRN Hypoglycemia Sodium Bicarbonate 325 mg 10/05/20 11:09 Sodium Bicarbonate 325 Mg Tab FEEDTUBE PRN PRN For Clogged Feeding Tube Topiramate 50 mg 10/05/20 11:00 10/10/20 09:22 Topiramate Tab 25 Mg Tab PO 50 mg Q12HR ERINN Administration
[2020-10-11] MEDS: IPRATROPIUM/ALBUTEROL SULFATE 3 ML AMPUL.NEB IH SCH ×4 (00:14→16:28)
[2020-10-11] MEDS: fentaNYL 100 MCG/2 ML INJ IV PRN ×2 (02:04→03:38)
[2020-10-11] MEDS: hydrALAZINE 20 MG/1 ML INJ IV PRN (03:14)
[2020-10-11 05:13] LABS: Hematocrit 35.5 % (30.3-42.9); Hemoglobin 11.6 gm/dl (10.1-14.3); Mean Corpuscular HGB Conc 33 % (30-34); Mean Corpuscular Volume 89 fl (79-97); Platelet Count 289 K/mm3 (140-440); Red Blood Count 3.99 M/mm3 (3.65-5.03); Red Cell Distribution Width 17.7 % (13.2-15.2)
[2020-10-11 05:14] LABS: Basophils % (Auto) 0.3 % (0.0-1.8); Eosinophils % (Auto) 0.9 % (0.0-4.3); Lymphocytes % (Auto) 6.3 % (13.4-35.0); Monocytes % (Auto) 5.4 % (0.0-7.3)
[2020-10-11 05:15] LABS: Basophils # (Auto) 0.1 K/mm3 (0.0-0.1); Eosinophils # (Auto) 0.3 K/mm3 (0.0-0.4); Lymphocytes # (Auto) 1.7 K/mm3 (1.2-5.4); Monocytes # (Auto) 1.5 K/mm3 (0.0-0.8)
[2020-10-11 05:34] LABS: BUN/Creatinine Ratio 22; Blood Urea Nitrogen 22 mg/dL (7-17); Calcium 7.7 mg/dL (8.4-10.2); Hemolysis Index 5
--- NOTE | 2020-10-11 06:03 | XRay Report ---
CHEST 1 VIEW [id number] INDICATION / CLINICAL INFORMATION: follow up respiratory failure COMPARISON: 10/10/2020 FINDINGS: SUPPORT DEVICES: Nasogastric tube passes below the diaphragm. PICC is unchanged. Endotracheal tube is seen with tip approximately 5 cm above the juaquin. HEART / MEDIASTINUM: Stable LUNGS / PLEURA: Mild congestion has improved. There may be slight interstitial edema. No pneumothorax . ADDITIONAL FINDINGS: No significant additional findings. Signer Name: Macario Morelos MD Signed: 10/11/2020 5:58 AM Workstation Name: [id number]
[2020-10-11] MEDS: busPIRone 10 MG TAB PO SCH ×2 (09:40→21:47)
[2020-10-11] MEDS: ACETAMINOPHEN 325 MG/10.15 ML ORAL LIQD UNIT DOSE FEEDTUBE PRN (09:40)
[2020-10-11] MEDS: FAMOTIDINE 20 MG TAB PO SCH ×2 (09:41→21:46)
[2020-10-11] MEDS: busPIRone 5 MG TAB PO SCH ×2 (09:41→21:47)
[2020-10-11] MEDS: TOPIRAMATE TAB 25 MG TAB PO SCH ×2 (09:41→21:47)
[2020-10-11] MEDS: DEXTROSE 10% IN WATER 1,000 ML IV SCH ×2 (09:42→23:06)
--- NOTE | 2020-10-11 10:22 | Progress Note ---
Assessment and Plan A: POD#8 s/p repeat section at 36 wks secondary to Eclampsia and Cardiac Arrest with Resuscitation POD#8 s/p supracervical abdominal hysterectomy secondary to Uterine Atony, Hemorrhage and Disseminated Intravascular Coagulation (DIC) s/p multiple transfusions of blood products Acute Kidney Injury, nonoligouric -Status post cardiac arrest 10/07/2020 requiring reintubation. -Shock, DIC: Secondary to hemorrhage, -Sepsis: followed by ID, abx recommendations noted -Acute kidney injury: Improving. -Hypokalemia: replacement prn -Acute respiratory failure: remains on the vent, settings reviewed -Transaminitis vs HELLP. Improving. -Preeclampsia: s/p Magnesium - hemorrhage: Status post , status post supracervical hysterectomy, monitor AVINASH drain P: Continue supportive care as recommended by Pulmonology/Critical Care, Internal Medicine, Infectious Disease, Hematology-Oncology Awaiting formal neurology evaluation Monitor AVINASH drain output, consider pulling in AM, reassess wound Routine postoperative care Subjective - Subjective Date of service: 10/11/20 Principal diagnosis: Eclampsia/HELLP Syndrome, ADOLPH, DIC; s/p , s/p supracervical hyst Interval history: All quality compliance consultant recommendations reviewed and greatly appreciated. Pt remains intubated and sedated. Objective - Vital Signs Latest vital signs: Vital Signs Temp Pulse Pulse Pulse Resp Resp BP 10/11/20 09:30 81 27 H 150/81 10/11/20 09:15 86 22 153/84 10/11/20 09:00 82 26 H 157/78 10/11/20 08:45 83 26 H 144/81 10/11/20 08:30 86 28 H 153/83 10/11/20 08:15 90 27 H 142/79 10/11/20 08:11 91 H 30 H 10/11/20 08:01 94 H 177/85 10/11/20 08:00 100.5 F H 89 93 H 30 H 10/11/20 07:58 90 150/86 10/11/20 07:54 89 25 H 10/11/20 07:30 93 H 27 H 152/91 10/11/20 07:15 94 H 29 H 165/91 10/11/20 07:00 89 25 H 151/81 10/11/20 06:45 92 H 28 H 166/85 10/11/20 06:30 91 H 27 H 151/87 10/11/20 06:15 92 H 28 H 152/83 10/11/20 06:00 94 H 28 H 157/84 10/11/20 05:45 94 H 27 H 155/84 10/11/20 05:30 95 H 26 H 155/84 10/11/20 05:15 96 H 27 H 167/83 10/11/20 05:14 96 H 82 24 10/11/20 05:00 96 H 27 H 146/85 10/11/20 04:58 99 H 82 24 10/11/20 04:53 99 H 144/85 10/11/20 04:45 95 H 27 H 144/85 10/11/20 04:30 94 H 25 H 155/84 10/11/20 04:15 96 H 26 H 165/92 10/11/20 04:00 99 H 26 H 157/84 10/11/20 03:45 102 H 26 H 205/77 10/11/20 03:38 25 H 10/11/20 03:31 106 H 35 H 205/77 10/11/20 03:20 88 82 28 H 10/11/20 03:15 88 30 H 173/101 10/11/20 03:14 89 189/93 10/11/20 03:04 20 10/11/20 03:01 90 28 H 173/101 10/11/20 02:45 86 25 H 156/90 10/11/20 02:35 86 82 28 H 10/11/20 02:31 86 26 H 137/101 10/11/20 02:15 87 25 H 140/95 10/11/20 02:04 31 H 10/11/20 02:00 92 H 27 H 149/103 10/11/20 01:45 90 30 H 172/95 10/11/20 01:30 88 29 H 168/94 10/11/20 01:15 90 29 H 171/94 10/11/20 01:00 87 29 H 175/100 10/11/20 00:45 90 28 H 165/91 10/11/20 00:30 91 H 29 H 176/94 10/11/20 00:29 92 H 82 27 H 10/11/20 00:18 92 H 30 H 10/11/20 00:15 92 H 31 H 166/94 10/11/20 00:11 92 H 178/95 10/11/20 00:00 100.5 F H 90 30 H 178/95 10/10/20 23:45 89 29 H 181/101 10/10/20 23:30 90 30 H 169/89 10/10/20 23:15 89 28 H 145/119 10/10/20 23:01 97 H 32 H 145/119 10/10/20 22:45 87 30 H 147/93 10/10/20 22:30 86 29 H 147/96 10/10/20 22:15 86 29 H 149/94 10/10/20 22:11 90 28 H 145/88 10/10/20 22:00 96 H 28 H 145/88 10/10/20 21:51 99 H 157/94 10/10/20 21:45 102 H 30 H 157/90 10/10/20 21:30 99 H 28 H 157/90 10/10/20 21:15 105 H 28 H 152/86 10/10/20 21:07 32 H 10/10/20 21:00 101 H 29 H 152/86 10/10/20 20:45 96 H 26 H 145/91 10/10/20 20:30 95 H 27 H 150/89 10/10/20 20:26 95 H 150/89 10/10/20 20:15 97 H 28 H 164/90 10/10/20 20:00 100.9 F H 99 H 30 H 161/90 10/10/20 19:45 108 H 32 H 171/98 10/10/20 19:30 98 H 31 H 157/84 10/10/20 19:15 100 H 31 H 149/88 10/10/20 19:00 105 H 82 31 H 152/84 10/10/20 18:45 109 H 32 H 139/88 10/10/20 18:30 109 H 32 H 135/79 10/10/20 18:15 108 H 31 H 147/82 10/10/20 18:00 107 H 29 H 147/82 10/10/20 17:49 89 179/94 10/10/20 17:45 88 30 H 179/94 10/10/20 17:30 80 28 H 179/94 10/10/20 17:15 86 30 H 171/107 10/10/20 17:00 80 32 H 160/97 10/10/20 16:45 80 32 H 143/95 10/10/20 16:30 82 30 H 140/95 10/10/20 16:15 91 H 30 H 167/89 10/10/20 16:11 82 157/97 10/10/20 16:00 98.9 F 82 82 27 H 157/97 10/10/20 15:45 82 28 H 150/82 10/10/20 15:30 80 27 H 150/82 10/10/20 15:15 82 27 H 152/87 10/10/20 15:01 91 H 31 H 143/120 10/10/20 14:45 87 25 H 142/81 10/10/20 14:30 95 H 29 H 146/83 10/10/20 14:15 137/90 10/10/20 14:01 93 H 137/90 10/10/20 14:00 93 H 34 H 137/90 10/10/20 13:45 89 32 H 134/83 10/10/20 13:30 91 H 34 H 144/84 10/10/20 13:15 88 33 H 169/63 10/10/20 13:00 84 31 H 169/63 10/10/20 12:48 68 171/99 10/10/20 12:46 64 171/99 10/10/20 12:45 63 28 H 171/99 10/10/20 12:30 63 28 H 167/89 10/10/20 12:15 60 25 H 175/95 10/10/20 12:00 100.2 F H 63 63 28 H 175/95 10/10/20 11:45 64 27 H 172/99 10/10/20 11:30 62 26 H 172/99 10/10/20 11:15 66 27 H 167/98 10/10/20 11:00 63 27 H 168/97 10/10/20 10:45 65 27 H 168/95 10/10/20 10:30 62 26 H 163/95 Pulse Ox 10/11/20 09:30 92 10/11/20 09:15 93 10/11/20 09:00 92 10/11/20 08:45 90 10/11/20 08:30 92 10/11/20 08:15 92 10/11/20 08:11 10/11/20 08:01 98 10/11/20 08:00 93 10/11/20 07:58 10/11/20 07:54 97 10/11/20 07:30 92 10/11/20 07:15 93 10/11/20 07:00 92 10/11/20 06:45 92 10/11/20 06:30 89 10/11/20 06:15 91 10/11/20 06:00 91 10/11/20 05:45 97 10/11/20 05:30 92 10/11/20 05:15 91 10/11/20 05:14 97 10/11/20 05:00 92 10/11/20 04:58 97 10/11/20 04:53 97 10/11/20 04:45 92 10/11/20 04:30 92 10/11/20 04:15 95 10/11/20 04:00 93 10/11/20 03:45 97 10/11/20 03:38 10/11/20 03:31 95 10/11/20 03:20 97 10/11/20 03:15 98 10/11/20 03:14 10/11/20 03:04 10/11/20 03:01 93 10/11/20 02:45 94 10/11/20 02:35 97 10/11/20 02:31 93 10/11/20 02:15 92 10/11/20 02:04 10/11/20 02:00 92 10/11/20 01:45 92 10/11/20 01:30 92 10/11/20 01:15 91 10/11/20 01:00 92 10/11/20 00:45 92 10/11/20 00:30 93 10/11/20 00:29 97 10/11/20 00:18 10/11/20 00:15 94 10/11/20 00:11 98 10/11/20 00:00 92 10/10/20 23:45 94 10/10/20 23:30 94 10/10/20 23:15 97 10/10/20 23:01 93 10/10/20 22:45 91 10/10/20 22:30 93 10/10/20 22:15 92 10/10/20 22:11 97 12/26/20 22:00 91 10/10/20 21:51 10/10/20 21:45 97 10/10/20 21:30 92 10/10/20 21:15 97 10/10/20 21:07 10/10/20 21:00 93 10/10/20 20:45 94 10/10/20 20:30 92 10/10/20 20:26 98 10/10/20 20:15 94 10/10/20 20:00 94 10/10/20 19:45 94 10/10/20 19:30 96 10/10/20 19:15 96 10/10/20 19:00 94 10/10/20 18:45 91 10/10/20 18:30 91 10/10/20 18:15 96 10/10/20 18:00 93 10/10/20 17:49 10/10/20 17:45 97 10/10/20 17:30 93 10/10/20 17:15 93 10/10/20 17:00 93 10/10/20 16:45 92 10/10/20 16:30 92 10/10/20 16:15 93 10/10/20 16:11 97 10/10/20 16:00 97 10/10/20 15:45 98 10/10/20 15:30 92 10/10/20 15:15 92 10/10/20 15:01 92 10/10/20 14:45 94 10/10/20 14:30 94 10/10/20 14:15 95 10/10/20 14:01 10/10/20 14:00 93 10/10/20 13:45 94 10/10/20 13:30 93 10/10/20 13:15 96 10/10/20 13:00 93 10/10/20 12:48 10/10/20 12:46 98 10/10/20 12:45 95 10/10/20 12:30 96 10/10/20 12:15 98 10/10/20 12:00 95 10/10/20 11:45 98 10/10/20 11:30 95 10/10/20 11:15 94 10/10/20 11:00 95 10/10/20 10:45 95 10/10/20 10:30 95 Intake and Output 10/10/20 10/11/20 10/11/20 22:59 06:59 14:59 Intake Total 1956.828 449 4075.119 Output Total 3010 1600 510 Balance -1053.939 -1036 723.119 Intake: IV 1201.732 660 3961.119 CEFEPIME/NS 2 GM/100 ML 2 100 gm In 100 ml @ 200 mls/ hr IV Q12H ERINN Rx#: [id number] D10w 1,000 ml @ 75 mls/hr 1000 903.75 IV DIRECT ERINN Rx#: [id number] dexmedeTOMIDine 400 MCG 101.061 104 99.369 In NaCl 0.9% 100 ml @ 0.2 MCG/KG/HR 7.249 mls/hr IV TITRATE ERINN Rx#: [id number] Intake, Free Water 200 100 100 Tube Feeding 455 260 130 Other 100 100 Output: Gastric Drainage 0 Oral 0 Drainage 160 0 10 Left 160 0 10 Urine 2850 1600 350 Indwelling Catheter 2850 1600 350 Stool 150 Other: Total, Intake Amount 165 65 65 Total, Output Amount 15 400 510 Voiding Method Indwelling Catheter Indwelling Catheter Indwelling Catheter Weight 127.1 kg Patient Weight 10/12/20 06:59 Weight 127.1 kg - Exam Narrative Exam: General appearance: Sedated intubated HENT: Normocephalic, Atraumatic Neck: supple, tracheal midline, no JVD Lungs:CTAB CV: RRR Abdomen: Soft, Nondistened, incision intact with tuan in place. dark red blood left lateral margin, pressure dressing applied, AVINASH drain-minimal output, suction off Extremities: 1+ edema Skin: No rash. Psych: Sedated Neuro: Sedated - Labs Labs: Abnormal lab results 10/07/20 10/11/20 10/11/20 Range/Units 21:00 00:44 04:00 WBC 27.0 H (4.5-11.0) K/mm3 RDW 17.7 H (13.2-15.2) % Lymph % (Auto) 6.3 L (13.4-35.0) % [place] # (Auto) 1.5 H (0.0-0.8) K/mm3 Seg Neutrophils % 87.1 H (40.0-70.0) % Seg Neutrophils # 23.5 H (1.8-7.7) K/mm3 Potassium (3.6-5.0) mmol/L Chloride (98-107) mmol/L Carbon Dioxide (22-30) mmol/L BUN (7-17) mg/dL Glucose (65-100) mg/dL POC Glucose 106 H (70-105) mg/dL Calcium (8.4-10.2) mg/dL Ionized Calcium 4.4 L (4.8-5.6) mg/dL Magnesium (1.7-2.3) mg/dL 10/11/20 10/11/20 Range/Units 04:00 06:08 WBC (4.5-11.0) K/mm3 RDW (13.2-15.2) % Lymph % (Auto) (13.4-35.0) % [place] # (Auto) (0.0-0.8) K/mm3 Seg Neutrophils % (40.0-70.0) % Seg Neutrophils # (1.8-7.7) K/mm3 Potassium 3.2 L (3.6-5.0) mmol/L Chloride 110.4 H (98-107) mmol/L Carbon Dioxide 19 L (22-30) mmol/L BUN 22 H (7-17) mg/dL Glucose 116 H (65-100) mg/dL POC Glucose 107 H (70-105) mg/dL Calcium 7.7 L (8.4-10.2) mg/dL Ionized Calcium (4.8-5.6) mg/dL Magnesium 1.60 L (1.7-2.3) mg/dL
--- NOTE | 2020-10-11 13:21 | Progress Note ---
Assessment and Plan Cultures: Blood culture: no growth A/P: 30-year-old female with GERD, hypertension, seizure disorder was admitted to the hospital at 36 weeks with seizures. She became hypoxic and pulseless requiring CPR. Following emergent section, patient developed hemorrhage, DIC. She has been admitted to ICU, remains on the vent: #Status post cardiac arrest 10/07/2020 requiring reintubation. #Shock, DIC/persistent fever: Secondary to hemorrhage, ?possible sepsis. Possible pneumonia versus fluid overload. ? Central fever. Noted diarrhea ? Cdiff #Acute kidney injury: renally dose abx. Improving. #Acute respiratory failure: remains on the vent. #Transaminitis: ?HELLP. Improving. #Preeclampsia # hemorrhage: Status post , status post supracervical hysterectomy. #Encephalopathy post cardiac arrest ? Anoxic brain injury Recs: -Obtain repeat blood cultures, UA, tracheal aspirate culture, KUB -Completed cefepime course 5 days on 10/09/2020 -Check MRSA culture -Start vancomycin p.o. empirically for C. difficile total 10 days, given diarrhea and worsening leukocytosis, -Neurology evaluation pending Dr. Herber ram tomorrow Violette Dejesus MD [facility] ([facility]) Office [phone] Subjective Date of service: 10/11/20 Principal diagnosis: Eclampsia/HELLP Syndrome, ADOLPH, DIC; s/p , s/p supracervical hyst Interval history: Remains intubated, sedated, tachypneic. Persistent low-grade fever at 100.9. Objective - Exam Narrative Exam: General appearance: Sedated intubated Eyes: anicteric sclerae, moist conjunctivae; no lid-lag; PERRLA HENT: Normocephalic, Atraumatic; normal external ears, nares open, oropharynx limited rectal tube in place Neck: supple, tracheal midline, no JVD Lungs: Coarse breath sounds bilaterally CV: RRR no murmur Abdomen: Soft, wound with dressing Extremities: no edema, no cyanosis Skin: No rash. Psych: Sedated Neuro: Sedated Rectal tube PICC line - Constitutional Vitals: Vital Signs Temp Pulse Resp BP Pulse Ox 100.5 F H 82 24 143/81 93 10/11/20 08:00 10/11/20 13:00 10/11/20 13:00 10/11/20 13:00 10/11/20 13:00 Temperature -Last 24 Hours Temperature 100.5 F Temperature 100.5 F Temperature 100.9 F Temperature 98.9 F - Labs CBC & Chem 7: 10/11/20 04:00 10/11/20 04:00 Labs: Abnormal lab results 10/07/20 10/11/20 10/11/20 Range/Units 21:00 00:44 04:00 WBC 27.0 H (4.5-11.0) K/mm3 RDW 17.7 H (13.2-15.2) % Lymph % (Auto) 6.3 L (13.4-35.0) % [place] # (Auto) 1.5 H (0.0-0.8) K/mm3 Seg Neutrophils % 87.1 H (40.0-70.0) % Seg Neutrophils # 23.5 H (1.8-7.7) K/mm3 Potassium (3.6-5.0) mmol/L Chloride (98-107) mmol/L Carbon Dioxide (22-30) mmol/L BUN (7-17) mg/dL Glucose (65-100) mg/dL POC Glucose 106 H (70-105) mg/dL Calcium (8.4-10.2) mg/dL Ionized Calcium 4.4 L (4.8-5.6) mg/dL Magnesium (1.7-2.3) mg/dL 10/11/20 10/11/20 10/11/20 Range/Units 04:00 06:08 11:41 WBC (4.5-11.0) K/mm3 RDW (13.2-15.2) % Lymph % (Auto) (13.4-35.0) % [place] # (Auto) (0.0-0.8) K/mm3 Seg Neutrophils % (40.0-70.0) % Seg Neutrophils # (1.8-7.7) K/mm3 Potassium 3.2 L (3.6-5.0) mmol/L Chloride 110.4 H (98-107) mmol/L Carbon Dioxide 19 L (22-30) mmol/L BUN 22 H (7-17) mg/dL Glucose 116 H (65-100) mg/dL POC Glucose 107 H 116 H (70-105) mg/dL Calcium 7.7 L (8.4-10.2) mg/dL Ionized Calcium (4.8-5.6) mg/dL Magnesium 1.60 L (1.7-2.3) mg/dL
--- NOTE | 2020-10-11 14:45 | Progress Note ---
Assessment and Plan -- Sepsis with presumed Pneumonia Teated with iv abx, follow Cx -Completed cefepime course 5 days on 10/09/2020 -Check MRSA culture -Start vancomycin p.o. empirically for C. difficile total 10 days, given diarrhea and worsening leukocytosis, --Acute respiratory failure with hypoxia Patient intubated Vent management per CC --DIC (disseminated intravascular coagulation) vs HELLP syndrome Has anemia,thrombocytopenia and elevated liver enzymes Patient received multiple units of RBCs, FFP's, cryo Hematology/oncology recommendations appreciated Continue to trend fibrinogen and INR Critical care on board --Possible Eclampsia/HELLP Syndrome Patient presented with seizure-->hypoxia-->urgent C section-->hysterectomy for severe bleeding/DIC developed severe anemia-->received RBC, plt, FFP, cryo was on max pressors-->now off pressors still on vent, on sedation Hematology following --s/p Cardiac arrest x2 on admission and on 10/07 ACLS protocol followed by revival Echo showed preserved Ef --Shock Now on one pressor Likely hypovolemic. Started on empirical antibiotics for possible sepsis. Continue to monitor blood pressure closely Trend H&H and transfuse as needed --Lactic acidosis As a result of poor organ perfusion and possible sepsis Continue IV hydration. Lactic acid is trending down Nephrology on board --ADOLPH As a result of hypoperfusion and shock Continue IV hydration Cr stable, follow BMP --DVT prophylaxis Patient in DIC No anticoagulants The high probability of a clinically significant, sudden or life threatening deterioration of the [pulmonary] system(s) required my full and direct attention, intervention and personal management. The aggregate critical care time was [35] minutes. This time is in addition to time spent performing reported procedures but includes the following: [x] Data Review and interpretation [x] Patient assessment and monitoring of vital signs [x] Documentation [x] Medication orders and management brief History 30 year old -[place] female CHE 10/25/20 at 36w5d who presents with seizures in triage on 10/02/20. Pt was not able to provide history but per pt's , she presented to the hospital to return a 24 hour urine specimen for analysis. She then suddenly reported that she did not feel good. She was taken to labor and delivery and shortly after arrival, she began seizing. During this time, a code met was called because the patient became hypoxic. She was then noted to be without a pulse. Chest compressions were started immediately, and the patient was emergently taken to the operating room for delivery of the fetus. 01This patient has had care at [facility] with comanagement by [facility] since 11 wks complicated by ADHD, morbid obesity, generalized anxiety disorder, panic attacks, chronic narcotic use, fibromyalgia, GERD, Irritable Bowel Syndrome, Migraines, h/o endometrial ablation and ovarian vein embolization, genital herpes, insomnia, LGA fetus, nausea and vomiting, polyhydramnios, quad screen positive for Down's Syndrome, and previous x 3. She is GBS negative. 11:30: Pt brought to L&D triage for evaluation of possible labor. Pt accompanied by her spouse. Pt spouse poor historian; unable to obtain history- allergies at this time. Pt taken from registration to triage area via WC. Pt unresponsive, actively seizing with snorous respirations. front office representative, Kassy, called and requesting assistance. 11:35: Multiple staff at bedside. Pt 02 sat 67% on nonrebreather, unable to read BP at this time. Yifan Theodore CRNA, at bedside for intubation and assistance with IV insertion. INT attempt by multiple RNs unsuccessful at this time. 11:42: Pt being bagged by KORIN, 02% 79%. No pulse palpated, compressions started at this time; bharati young called and Dr. Newberry preparing OR for emergent c/s. 11:44: Continued compressions on stretcher while transporting pt to OR 1. Pt being bagged with jaw thrust manuever in place by KORIN Stringer student. 11:45: Arrival to OR 1. Dr. Newberry and Dr. Portillo present for emergent c/s. Code team arrived for continued care. patient revived and c/s done Patient has been bleeding from C/s site followed by supracervical hysterectomy for severe bleeding Patient transfused multiple units of PRBC, Patient in DIC. Transferred to the ICU 10/03. Patient seen and examined at bedside this morning. Patient is nonresponsive and mechanically ventilated. On pressors. Labs reviewed-has leukocytosis, anemia, thrombocytopenia, ADOLPH and lactic acidosis. Started on IV antibiotics to cover possible sepsis secondary to DIC. Hematology oncology recommendations appreciated-needs additional cryoprecipitate and FFP. Monitor D-dimer, fibrinogen and frequent labs. Nephrology consulted for lactic acidosis and ADOLPH. 10/04. Remains mechanically ventilated. Kevin antibiotics. Labs shows improved acidosis - lactic acid 3.5. Hb drop noted. Getting transfused 2 units PRBCs. Platelet count is ~40k. Continue to monitor labs closely. Critical care team on board. 10/05; xray reviewed, concerning for multifocal infilrate, likely underlying Pneumonia, will add ID consult to assist with management of this critically ill patient, start tube feed, closely monitor renal system 10/06: Resumed care, remains on mechanical ventilation. No active bleeding, H&H stable. Continue to monitor CBC and BMP. Continue IV antibiotic for underlying pneumonia. Follow critical care and ID recommendation. 10/07: Remains on mechanical ventilation. No active bleeding, H&H stable. Critical care following, wean off ventilation as tolerated. 10/08: Patient had another cardiac arrest last night. Remains on mechanical ventilation, update family. Continue supportive care -poor prognosis 10/09: Called patient mother and discussed about patient care and management. Answered all question to best of my knowledge and family satisfaction. Patient remains on mechanical ventilation, cardiac arrest x2 so far. Critically sick, poor prognosis 10/10: remains on mechanical ventilation. h/h stable, no active bleeding. monitor CBC/BMP 10/11: WBC trended up with diarrhea, started on vancomycin po. remains on MV, off pressor, tolerating TF Subjective Date of service: 10/11/20 Principal diagnosis: Eclampsia/HELLP Syndrome, ADOLPH, DIC; s/p , s/p supracervical hyst Interval history: Patient seen and examined Remains intubated No active bleeding H&H stable Discussed with RN at the bedside Objective - Exam Narrative Exam: vITAL SIGNS: Reviewed. GENERAL: Intubated HEAD: No signs of head trauma. EYES: Pupils are equal. MOUTH: OT in place NECK: No adenopathy, no JVD. CHEST: Rales posteriorly CARDIAC: normal S1 and S2, without murmurs, gallops, or rubs. ABDOMEN: Soft, non tender and non distended. surgical wound in tact, No rebound or guarding, and no masses palpated. Bowel Sounds normal. AVINASH drain intact MUSCULOSKELETAL: No edema NEUROLOGIC EXAM: Intubated SKIN: No obvious lesions - Constitutional Vitals: Vital Signs - 12hr 10/11/20 10/11/2020 02:45 03:01 03:04 Temperature Pulse Rate 86 90 Pulse Rate [ Anterior Bilateral Throughout] Pulse Rate [ From Monitor] Respiratory 25 H 28 H 20 Rate Respiratory Rate [Anterior Bilateral Throughout] Blood Pressure 156/90 173/101 O2 Sat by Pulse 94 93 Oximetry 10/11/20 10/11/20 10/11/20 03:14 03:15 03:20 Temperature Pulse Rate 89 88 88 Pulse Rate [ Anterior Bilateral Throughout] Pulse Rate [ 82 From Monitor] Respiratory 30 H 28 H Rate Respiratory Rate [Anterior Bilateral Throughout] Blood Pressure 189/93 173/101 O2 Sat by Pulse 98 97 Oximetry 10/11/20 10/11/20 10/11/20 03:31 03:38 03:45 Temperature Pulse Rate 106 H 102 H Pulse Rate [ Anterior Bilateral Throughout] Pulse Rate [ From Monitor] Respiratory 35 H 25 H 26 H Rate Respiratory Rate [Anterior Bilateral Throughout] Blood Pressure 205/77 205/77 O2 Sat by Pulse 95 97 Oximetry 10/11/20 10/11/20 10/11/20 04:00 04:15 04:30 Temperature Pulse Rate 99 H 96 H 94 H Pulse Rate [ Anterior Bilateral Throughout] Pulse Rate [ From Monitor] Respiratory 26 H 26 H 25 H Rate Respiratory Rate [Anterior Bilateral Throughout] Blood Pressure 157/84 165/92 155/84 O2 Sat by Pulse 93 95 92 Oximetry 10/11/20 10/11/20 10/11/20 04:45 04:53 04:58 Temperature Pulse Rate 95 H 99 H 99 H Pulse Rate [ Anterior Bilateral Throughout] Pulse Rate [ 82 From Monitor] Respiratory 27 H 24 Rate Respiratory Rate [Anterior Bilateral Throughout] Blood Pressure 144/85 144/85 O2 Sat by Pulse 92 97 97 Oximetry 10/11/20 10/11/20 10/11/20 05:00 05:14 05:15 Temperature Pulse Rate 96 H 96 H 96 H Pulse Rate [ Anterior Bilateral Throughout] Pulse Rate [ 82 From Monitor] Respiratory 27 H 24 27 H Rate Respiratory Rate [Anterior Bilateral Throughout] Blood Pressure 146/85 167/83 O2 Sat by Pulse 92 97 91 Oximetry 10/11/20 10/11/20 10/11/20 05:30 05:45 06:00 Temperature Pulse Rate 95 H 94 H 94 H Pulse Rate [ Anterior Bilateral Throughout] Pulse Rate [ From Monitor] Respiratory 26 H 27 H 28 H Rate Respiratory Rate [Anterior Bilateral Throughout] Blood Pressure 155/84 155/84 157/84 O2 Sat by Pulse 92 97 91 Oximetry 10/11/20 10/11/20 10/11/20 06:15 06:30 06:45 Temperature Pulse Rate 92 H 91 H 92 H Pulse Rate [ Anterior Bilateral Throughout] Pulse Rate [ From Monitor] Respiratory 28 H 27 H 28 H Rate Respiratory Rate [Anterior Bilateral Throughout] Blood Pressure 152/83 151/87 166/85 O2 Sat by Pulse 91 89 92 Oximetry 10/11/20 10/11/20 10/11/20 07:00 07:15 07:30 Temperature Pulse Rate 89 94 H 93 H Pulse Rate [ Anterior Bilateral Throughout] Pulse Rate [ From Monitor] Respiratory 25 H 29 H 27 H Rate Respiratory Rate [Anterior Bilateral Throughout] Blood Pressure 151/81 165/91 152/91 O2 Sat by Pulse 92 93 92 Oximetry 10/11/20 10/11/20 10/11/20 07:54 07:58 08:00 Temperature 100.5 F H Pulse Rate 89 90 89 Pulse Rate [ Anterior Bilateral Throughout] Pulse Rate [ 93 H From Monitor] Respiratory 25 H 30 H Rate Respiratory Rate [Anterior Bilateral Throughout] Blood Pressure 150/86 O2 Sat by Pulse 97 93 Oximetry 10/11/20 10/11/20 10/11/20 08:01 08:11 08:15 Temperature Pulse Rate 94 H 90 Pulse Rate [ 91 H Anterior Bilateral Throughout] Pulse Rate [ From Monitor] Respiratory 27 H Rate Respiratory 30 H Rate [Anterior Bilateral Throughout] Blood Pressure 177/85 142/79 O2 Sat by Pulse 98 92 Oximetry 10/11/20 10/11/20 10/11/20 08:30 08:45 09:00 Temperature Pulse Rate 86 83 82 Pulse Rate [ Anterior Bilateral Throughout] Pulse Rate [ From Monitor] Respiratory 28 H 26 H 26 H Rate Respiratory Rate [Anterior Bilateral Throughout] Blood Pressure 153/83 144/81 157/78 O2 Sat by Pulse 92 90 92 Oximetry 10/11/20 10/11/20 10/11/20 09:15 09:30 09:45 Temperature Pulse Rate 86 81 83 Pulse Rate [ Anterior Bilateral Throughout] Pulse Rate [ From Monitor] Respiratory 22 27 H 28 H Rate Respiratory Rate [Anterior Bilateral Throughout] Blood Pressure 153/84 150/81 156/81 O2 Sat by Pulse 93 92 93 Oximetry 12/10/11/20 10/11/20 10:00 10:15 10:30 Temperature Pulse Rate 85 85 83 Pulse Rate [ Anterior Bilateral Throughout] Pulse Rate [ From Monitor] Respiratory 31 H 30 H 24 Rate Respiratory Rate [Anterior Bilateral Throughout] Blood Pressure 153/84 143/87 150/87 O2 Sat by Pulse 93 93 Oximetry 10/11/20 10/11/20 10/11/20 10:45 11:00 11:15 Temperature Pulse Rate 78 76 77 Pulse Rate [ Anterior Bilateral Throughout] Pulse Rate [ From Monitor] Respiratory 19 24 23 Rate Respiratory Rate [Anterior Bilateral Throughout] Blood Pressure 156/84 151/84 138/81 O2 Sat by Pulse 93 96 93 Oximetry 10/11/20 10/11/20 10/11/20 11:30 11:45 12:00 Temperature Pulse Rate 81 80 83 Pulse Rate [ Anterior Bilateral Throughout] Pulse Rate [ From Monitor] Respiratory 22 20 24 Rate Respiratory Rate [Anterior Bilateral Throughout] Blood Pressure 136/78 136/80 137/79 O2 Sat by Pulse 94 94 95 Oximetry 10/11/20 10/11/20 10/11/20 12:15 12:22 12:30 Temperature Pulse Rate 80 85 85 Pulse Rate [ Anterior Bilateral Throughout] Pulse Rate [ From Monitor] Respiratory 23 27 H Rate Respiratory Rate [Anterior Bilateral Throughout] Blood Pressure 135/75 143/87 149/88 O2 Sat by Pulse 94 98 98 Oximetry 10/11/20 10/11/20 10/11/20 12:45 13:00 13:15 Temperature Pulse Rate 85 82 82 Pulse Rate [ Anterior Bilateral Throughout] Pulse Rate [ From Monitor] Respiratory 24 24 Rate Respiratory Rate [Anterior Bilateral Throughout] Blood Pressure 143/77 143/81 141/82 O2 Sat by Pulse 95 93 93 Oximetry 10/11/20 10/11/20 10/11/20 13:30 13:46 14:00 Temperature Pulse Rate 84 83 86 Pulse Rate [ Anterior Bilateral Throughout] Pulse Rate [ From Monitor] Respiratory 26 H 26 H 23 Rate Respiratory Rate [Anterior Bilateral Throughout] Blood Pressure 136/88 143/83 146/84 O2 Sat by Pulse 94 95 96 Oximetry 10/11/20 10/11/20 14:16 14:20 Temperature Pulse Rate 82 82 Pulse Rate [ Anterior Bilateral Throughout] Pulse Rate [ From Monitor] Respiratory 21 Rate Respiratory Rate [Anterior Bilateral Throughout] Blood Pressure 149/87 149/87 O2 Sat by Pulse 96 Oximetry - Labs CBC & Chem 7: 10/12/20 Unknown 10/12/20 Unknown Labs: Abnormal lab results 10/07/20 10/11/20 10/11/20 Range/Units 21:00 00:44 04:00 WBC 27.0 H (4.5-11.0) K/mm3 RDW 17.7 H (13.2-15.2) % Lymph % (Auto) 6.3 L (13.4-35.0) % Colbert # (Auto) 1.5 H (0.0-0.8) K/mm3 Seg Neutrophils % 87.1 H (40.0-70.0) % Seg Neutrophils # 23.5 H (1.8-7.7) K/mm3 Potassium (3.6-5.0) mmol/L Chloride (98-107) mmol/L Carbon Dioxide (22-30) mmol/L BUN (7-17) mg/dL Glucose (65-100) mg/dL POC Glucose 106 H (70-105) mg/dL Calcium (8.4-10.2) mg/dL Ionized Calcium 4.4 L (4.8-5.6) mg/dL Magnesium (1.7-2.3) mg/dL 10/11/20 10/11/20 10/11/20 Range/Units 04:00 06:08 11:41 WBC (4.5-11.0) K/mm3 RDW (13.2-15.2) % Lymph % (Auto) (13.4-35.0) % Colbert # (Auto) (0.0-0.8) K/mm3 Seg Neutrophils % (40.0-70.0) % Seg Neutrophils # (1.8-7.7) K/mm3 Potassium 3.2 L (3.6-5.0) mmol/L Chloride 110.4 H (98-107) mmol/L Carbon Dioxide 19 L (22-30) mmol/L BUN 22 H (7-17) mg/dL Glucose 116 H (65-100) mg/dL POC Glucose 107 H 116 H (70-105) mg/dL Calcium 7.7 L (8.4-10.2) mg/dL Ionized Calcium (4.8-5.6) mg/dL Magnesium 1.60 L (1.7-2.3) mg/dL HEART Score - HEART Score Age: < 45 Risk factors: 1-2 risk factors - Critical Actions Critical Actions: >7 pts:50-65% risk of adverse cardiac event. Early invasive measures
[2020-10-11] MEDS: VANCOMYCIN 250 MG/10 ML ORAL LIQD PO SCH ×2 (14:56→20:37)
--- NOTE | 2020-10-11 15:08 | XRay Report ---
ABDOMEN 1 VIEW 2:03 PM INDICATION / CLINICAL INFORMATION: Abdominal distention. Evaluate for colon distention/free air. COMPARISON: 10/02/20 FINDINGS: TUBES / LINES: There is a nasogastric tube with the tip overlying the distal stomach. BOWEL GAS PATTERN: No evidence of bowel obstruction or mass effect. FREE AIR / EXTRALUMINAL GAS: None seen. ADDITIONAL FINDINGS: There are metallic tuan overlying the lower pelvis. A tube or catheter overli es the central pelvis. Radiopaque densities overlying the left sacral region are of uncertain etiolog y but could represent sponge markers. The appearance has not changed since 10/02/20. Signer Name: Harlan Short MD Signed: 10/11/2020 3:03 PM Workstation Name: [id number]
[2020-10-11 15:25] LABS: Bacteria,Urine 1+ /HPF (Negative); Bilirubin,Urine NEG (Negative); Blood,Urine MOD (Negative); Color,Urine Yellow (Yellow); Mucus,Urine FEW /HPF; Urobilinogen,Urine < 2.0 mg/dL (<2.0)
--- NOTE | 2020-10-11 19:26 | Progress Note ---
Assessment and Plan Impression: * Nonoliguric acute kidney injury secondary to ischemic ATN * Acidosis * Cardiac arrest * Shock * Acute hypoxic respiratory failure * Acute encephalopathy * DIC * Anemia secondary to acute blood loss * hemorrhage * Mixed respiratory/metabolic acidosis * Presumed eclampsia * Hypokalemia * Hypocalcemia * Transaminitis * Covid PUI Plan: * Renal function is stable. There is no need for renal replacement therapy at this time * Start sodium bicarb tabs * Follow potassium and replete prn to goal range 4 mmol/L * Transfusion of blood products per primary team and hematology * Pressors prn to maintain MAP>65 * Reviewed ID note * Reviewed OB note * Strict I/O * Vent management per pulmonary/CCM * Dose medications for renal function * Avoid potential nephrotoxins * Will sign off. Please call with questions. Subjective Date of service: 10/11/20 Principal diagnosis: Eclampsia/HELLP Syndrome, ADOLPH, DIC; s/p , s/p supracervical hyst Interval history: Patient was seen for her renal issues Nursing, interdisciplinary and consult notes were reviewed Vitals, input and output, medications and labs were reviewed Neurologic status remains unchanged Good UOP Objective - Exam Narrative Exam: Deferred as patient is Covid PUI to prevent spread of infection and PPE conservation. Primary team exam reviewed. - Vital Signs Vital signs: Vital Signs - 12hr 10/11/20 10/11/20 10/11/20 07:30 07:54 07:58 Temperature Pulse Rate 93 H 89 90 Pulse Rate [ Anterior Bilateral Throughout] Pulse Rate [ From Monitor] Respiratory 27 H 25 H Rate Respiratory Rate [Anterior Bilateral Throughout] Blood Pressure 152/91 150/86 O2 Sat by Pulse 92 97 Oximetry 10/11/20 10/11/20 10/11/20 08:00 08:01 08:11 Temperature 100.5 F H Pulse Rate 88 94 H Pulse Rate [ 91 H Anterior Bilateral Throughout] Pulse Rate [ 93 H From Monitor] Respiratory 30 H Rate Respiratory 30 H Rate [Anterior Bilateral Throughout] Blood Pressure 177/85 O2 Sat by Pulse 93 98 Oximetry 10/11/20 10/11/20 10/11/20 08:15 08:30 08:45 Temperature Pulse Rate 90 86 83 Pulse Rate [ Anterior Bilateral Throughout] Pulse Rate [ From Monitor] Respiratory 27 H 28 H 26 H Rate Respiratory Rate [Anterior Bilateral Throughout] Blood Pressure 142/79 153/83 144/81 O2 Sat by Pulse 92 92 90 Oximetry 10/11/20 10/11/20 10/11/20 09:00 09:15 09:30 Temperature Pulse Rate 82 86 81 Pulse Rate [ Anterior Bilateral Throughout] Pulse Rate [ From Monitor] Respiratory 26 H 22 27 H Rate Respiratory Rate [Anterior Bilateral Throughout] Blood Pressure 157/78 153/84 150/81 O2 Sat by Pulse 92 93 92 Oximetry 10/11/20 10/11/20 10/11/20 09:45 10:00 10:15 Temperature Pulse Rate 83 85 85 Pulse Rate [ Anterior Bilateral Throughout] Pulse Rate [ From Monitor] Respiratory 28 H 31 H 30 H Rate Respiratory Rate [Anterior Bilateral Throughout] Blood Pressure 156/81 153/84 143/87 O2 Sat by Pulse 93 93 Oximetry 10/11/20 10/11/20 10/11/20 10:30 10:45 11:00 Temperature Pulse Rate 83 78 76 Pulse Rate [ Anterior Bilateral Throughout] Pulse Rate [ From Monitor] Respiratory 24 19 24 Rate Respiratory Rate [Anterior Bilateral Throughout] Blood Pressure 150/87 156/84 151/84 O2 Sat by Pulse 93 93 96 Oximetry 10/11/20 10/11/20 10/11/20 11:15 11:30 11:45 Temperature Pulse Rate 77 81 80 Pulse Rate [ Anterior Bilateral Throughout] Pulse Rate [ From Monitor] Respiratory 23 22 20 Rate Respiratory Rate [Anterior Bilateral Throughout] Blood Pressure 138/81 136/78 136/80 O2 Sat by Pulse 93 94 94 Oximetry 10/11/20 10/11/20 10/11/20 12:00 12:15 12:22 Temperature 98.4 F Pulse Rate 80 80 85 Pulse Rate [ Anterior Bilateral Throughout] Pulse Rate [ 81 From Monitor] Respiratory 22 23 Rate Respiratory Rate [Anterior Bilateral Throughout] Blood Pressure 137/79 135/75 143/87 O2 Sat by Pulse 98 94 98 Oximetry 10/11/20 10/11/20 10/11/20 12:30 12:45 13:00 Temperature Pulse Rate 85 85 82 Pulse Rate [ Anterior Bilateral Throughout] Pulse Rate [ From Monitor] Respiratory 27 H 22 24 Rate Respiratory Rate [Anterior Bilateral Throughout] Blood Pressure 149/88 143/77 143/81 O2 Sat by Pulse 98 95 93 Oximetry 10/11/20 10/11/20 10/11/20 13:15 13:30 13:46 Temperature Pulse Rate 82 84 83 Pulse Rate [ Anterior Bilateral Throughout] Pulse Rate [ From Monitor] Respiratory 24 26 H 26 H Rate Respiratory Rate [Anterior Bilateral Throughout] Blood Pressure 141/82 136/88 143/83 O2 Sat by Pulse 93 94 95 Oximetry 10/11/20 10/11/20 10/11/20 14:00 14:16 14:20 Temperature Pulse Rate 86 82 82 Pulse Rate [ Anterior Bilateral Throughout] Pulse Rate [ From Monitor] Respiratory 23 21 Rate Respiratory Rate [Anterior Bilateral Throughout] Blood Pressure 146/84 149/87 149/87 O2 Sat by Pulse 96 96 Oximetry 10/11/20 10/11/20 10/11/20 14:30 14:45 15:00 Temperature Pulse Rate 80 77 75 Pulse Rate [ Anterior Bilateral Throughout] Pulse Rate [ From Monitor] Respiratory H 26 H 25 H Rate Respiratory Rate [Anterior Bilateral Throughout] Blood Pressure 158/89 154/94 163/91 O2 Sat by Pulse 93 94 96 Oximetry 10/11/20 10/11/20 10/11/20 15:16 15:30 15:41 Temperature Pulse Rate 78 87 80 Pulse Rate [ Anterior Bilateral Throughout] Pulse Rate [ From Monitor] Respiratory 28 H 27 H Rate Respiratory Rate [Anterior Bilateral Throughout] Blood Pressure 163/91 133/94 133/94 O2 Sat by Pulse 97 97 99 Oximetry 10/11/20 10/11/20 10/11/20 15:45 16:00 16:15 Temperature 99.8 F H Pulse Rate 75 70 76 Pulse Rate [ Anterior Bilateral Throughout] Pulse Rate [ 70 From Monitor] Respiratory 26 H 24 26 H Rate Respiratory Rate [Anterior Bilateral Throughout] Blood Pressure 142/93 146/93 146/92 O2 Sat by Pulse 98 100 96 Oximetry 10/11/20 10/11/20 10/11/20 16:28 16:30 16:45 Temperature Pulse Rate 74 74 Pulse Rate [ 74 Anterior Bilateral Throughout] Pulse Rate [ From Monitor] Respiratory 25 H 25 H Rate Respiratory 30 H Rate [Anterior Bilateral Throughout] Blood Pressure 145/93 143/90 O2 Sat by Pulse 97 96 Oximetry 10/11/20 10/11/20 10/11/20 17:00 17:15 17:30 Temperature Pulse Rate 83 78 81 Pulse Rate [ Anterior Bilateral Throughout] Pulse Rate [ From Monitor] Respiratory 28 H 26 H 25 H Rate Respiratory Rate [Anterior Bilateral Throughout] Blood Pressure 137/88 134/82 144/88 O2 Sat by Pulse 97 96 95 Oximetry 10/11/20 10/11/20 17:45 18:00 Temperature Pulse Rate 82 83 Pulse Rate [ Anterior Bilateral Throughout] Pulse Rate [ From Monitor] Respiratory 25 H 26 H Rate Respiratory Rate [Anterior Bilateral Throughout] Blood Pressure 133/86 136/88 O2 Sat by Pulse 95 96 Oximetry - Lab 10/11/20 04:00 10/11/20 04:00 Most recent lab results ABG pH 7.534 pH Units (7.350-7.450) H 10/10/20 04:42 ABG pCO2 25.0 mm Hg 10/10/20 04:42 ABG pO2 95.2 mm Hg (80.0-90.0) H 10/10/20 04:42 ABG HCO3 20.6 mmol/L (20.0-26.0) 10/10/20 04:42 ABG O2 Saturation 97.9 % (95.0-99.0) 10/10/20 04:42 Calcium 7.7 mg/dL (8.4-10.2) L 10/11/20 04:00 Phosphorus 3.40 mg/dL (2.5-4.5) D 10/11/20 04:00 Magnesium 1.60 mg/dL (1.7-2.3) L 10/11/20 04:00 Medications & Allergies - Medications Allergies/Adverse Reactions: Allergies egg Allergy (Severe, Verified 05/22/20 16:09) Anaphylaxis NSAIDS (Non-Steroidal Anti-Inflamma Allergy (Severe, Verified 05/22/20 16:09) Unknown pt c/o Palpitations, nervous, had to take benadryl Sulfa (Sulfonamide Antibiotics) Allergy (Severe, Verified 05/22/20 16:09) Anaphylaxis SWELING,NUMBNESS ibuprofen Allergy (Intermediate, Verified 05/22/20 16:09) Bleeding latex Allergy (Verified 05/22/20 16:09) Hives plecanatide [From Trulance] Allergy (Verified 05/22/20 16:09) Anaphylaxis adhesive tape Adverse Reaction (Intermediate, Verified 05/22/20 16:09) Unknown PAPER TAPE [place] metoclopramide [From Reglan] Adverse Reaction (Verified 05/22/20 16:09) Unknown Home Medications: Home Medications Medication Instructions Recorded Confirmed Last Taken Type Pantoprazole [Protonix TAB] 20 mg PO DAILY 05/10/19 08/20/20 05/10/19 05:00 History busPIRone 15 mg PO DAILY 01/15/20 08/20/20 Unknown History Albuterol Sulfate [Proventil Hfa] 6.7 gm IH Q4HR PRN #1 hfa.aer.ad 04/07/20 08/20/20 Unknown Rx Topiramate (Nf) [Trokendi XR CAP] 100 mg PO DAILY 08/20/20 08/20/20 Unknown History oxyCODONE /ACETAMINOPHEN [Percocet 1 tab PO Q6HR 08/20/20 08/20/20 Unknown History 5/325 mg] Active Medications: Generic Name Dose Route Start Last Admin Trade Name Freq PRN Reason Stop Dose Admin Acetaminophen 650 mg 10/05/20 16:34 10/11/20 09:40 Acetaminophen 325 Mg/10.15 Ml Oral Liqd Unit Dose FEEDTUBE 650 mg Q6H PRN Administration Non Cardiac Pain or Temp>100.5 Albuterol/Ipratropium 1 ampul 10/10/20 20:00 10/11/20 16:28 Ipratropium/Albuterol Sulfate 3 Ml Ampul.Neb IH 1 ampul Q8HRT ERINN Administration Lipase/Protease/Amylase 1 each 10/05/20 11:09 Lipase 10,500/Protease 25,000/Amylase 43,750 (Units) Dr Barakat FEEDTUBE PRN PRN For Clogged Feeding Tube Buspirone HCl 10 mg 10/10/20 10:00 10/11/20 09:40 Buspirone 10 Mg Tab PO 10 mg BID ERINN Administration Buspirone HCl 5 mg 10/10/20 10:00 10/11/20 09:41 Buspirone 5 Mg Tab PO 5 mg BID ERINN Administration Famotidine 20 mg 10/07/20 10:00 10/11/20 09:41 Famotidine 20 Mg Tab PO 20 mg BID ERINN Administration Fentanyl 50 mcg 10/10/20 19:54 10/11/20 03:38 Fentanyl 100 Mcg/2 Ml Inj IV 50 mcg Q3HR PRN Administration Labored breathing Hydralazine HCl 20 mg 10/07/20 11:49 10/11/20 03:14 Hydralazine 20 Mg/1 Ml Inj IV 20 mg Q6H PRN Administration SBP >170 Hydrophilic Ointment 1 applic 10/04/20 06:55 Lip Therapy Vaseline TP Q2HR PRN Dry Lips Dextrose 1,000 mls @ 75 mls/hr 10/04/20 18:50 10/11/20 09:42 D10w IV 75 mls/hr DIRECT ERINN Administration Dexmedetomidine HCl 400 mcg/ 104 mls @ 7.249 mls/hr 10/08/20 10:00 10/11/20 19:00 Sodium Chloride IV 0.5 mcg/kg/hr TITRATE ERINN 18.122 mls/hr Administration Protocol 0.2 MCG/KG/HR Labetalol HCl 100 mg 10/07/20 14:00 10/11/20 14:20 Labetalol 100 Mg Tab PO 100 mg TID ERINN Administration Lorazepam 2 mg 10/02/20 22:05 10/10/20 16:56 Lorazepam 2 Mg/Ml Vial IV 2 mg Q2H PRN Administration Seizures Multi-Ingred Cream/Lotion/Oil/Oint 1 applic 10/04/20 06:55 Mineral Oil/Petrolatum, White Ophth Oint 3.5 Gm OU Q4HR PRN Dry Eye(s) Simple Syrup 15 ml 10/05/20 11:09 Simple Syrup 15 Ml FEEDTUBE PRN PRN Hypoglycemia Simple Syrup 30 ml 10/05/20 11:09 Simple Syrup 15 Ml FEEDTUBE PRN PRN Hypoglycemia Sodium Bicarbonate 325 mg 10/05/20 11:09 Sodium Bicarbonate 325 Mg Tab FEEDTUBE PRN PRN For Clogged Feeding Tube Sodium Bicarbonate 1,300 mg 10/11/20 20:00 Sodium Bicarbonate 650 Mg Tab PO TID ERINN Topiramate 50 mg 10/05/20 11:00 10/11/20 09:41 Topiramate Tab 25 Mg Tab PO 50 mg Q12HR ERINN Administration Vancomycin HCl 125 mg 10/11/20 14:00 10/11/20 14:56 Vancomycin 250 Mg/10 Ml Oral Liqd PO 125 mg Q6H ERINN Administration Protocol
--- NOTE | 2020-10-11 19:47 | Progress Note ---
Assessment and Plan Imp: 1. Eclampsia w/ seizures s/p 2. S/p CP arrest 3. Encephalopathy, probably anoxic 4. Morbid obesity 5. DIC 6. ADOLPH 7. Acute respiratory failure, hypoxia Rec: 1. EEG negative for seizures, more c/w moderate to severe encephalopathy; would recommend formal neurology evaluation 2. Cont. Precedex; Benzos prn only for seizures; mentation precludes extubation; prn Fentanyl added back to be used only for vent. dysynchrony; hold further Lasix today; cont. Duonebs TID 3. F/u labs in AM; K repleted 4. TFs, SCDs, Pepcid 5. On PO Vanco per ID 6. Covid-19 PCR negative 7. Consider Trach/PEG next week if continued non-improvement in mentation 8. Prognosis likely poor but need neurologist to weigh in CCt 31 minutes Subjective Date of service: 10/11/20 Principal diagnosis: Eclampsia/HELLP Syndrome, ADOLPH, DIC; s/p , s/p supracervical hyst Interval history: No events. Eyes closed, with roving eye movements noted. On ACVC 12/450/30%/+6. She cannot give history. She is having paradoxical abdominal breathing, though much better than last evening. Large amounts of stool output per RN. Active Medications Acetaminophen (Acetaminophen 325 Mg/10.15 Ml Oral Liqd Unit Dose) 650 mg FEEDTUBE Q6H PRN PRN Reason: Non Cardiac Pain or Temp>100.5 Last Admin: 10/11/20 09:40 Dose: 650 mg Documented by: Albuterol/Ipratropium (Ipratropium/Albuterol Sulfate 3 Ml Ampul.Neb) 1 ampul IH Q8HRT [facility] Last Admin: 10/11/20 16:28 Dose: 1 ampul Documented by: Lipase/Protease/Amylase (Lipase 10,500/Protease 25,000/Amylase 43,750 (Units) Dr Barakat) 1 each FEEDTUBE PRN PRN PRN Reason: For Clogged Feeding Tube Buspirone HCl (Buspirone 10 Mg Tab) 10 mg PO BID [facility] Last Admin: 10/11/20 09:40 Dose: 10 mg Documented by: Buspirone HCl (Buspirone 5 Mg Tab) 5 mg PO BID [facility] Last Admin: 10/11/20 09:41 Dose: 5 mg Documented by: Famotidine (Famotidine 20 Mg Tab) 20 mg PO BID ERINN Last Admin: 10/11/20 09:41 Dose: 20 mg Documented by: Fentanyl (Fentanyl 100 Mcg/2 Ml Inj) 50 mcg IV Q3HR PRN PRN Reason: Labored breathing Last Admin: 10/11/20 03:38 Dose: 50 mcg Documented by: Hydralazine HCl (Hydralazine 20 Mg/1 Ml Inj) 20 mg IV Q6H PRN PRN Reason: SBP >170 Last Admin: 10/11/20 03:14 Dose: 20 mg Documented by: Hydrophilic Ointment (Lip Therapy Vaseline) 1 applic TP Q2HR PRN PRN Reason: Dry Lips Dextrose (D10w) 1,000 mls @ 75 mls/hr IV DIRECT ERINN Last Admin: 10/11/20 09:42 Dose: 75 mls/hr Documented by: Dexmedetomidine HCl 400 mcg/ (Sodium Chloride) 104 mls @ 7.249 mls/hr IV TITRATE ERINN; Protocol Last Admin: 10/11/20 19:00 Dose: 0.5 mcg/kg/hr, 18.122 mls/hr Documented by: Labetalol HCl (Labetalol 100 Mg Tab) 100 mg PO TID ERINN Last Admin: 10/11/20 14:20 Dose: 100 mg Documented by: Lorazepam (Lorazepam 2 Mg/Ml Vial) 2 mg IV Q2H PRN PRN Reason: Seizures Last Admin: 10/10/20 16:56 Dose: 2 mg Documented by: Multi-Ingred Cream/Lotion/Oil/Oint (Mineral Oil/Petrolatum, White Ophth Oint 3.5 Gm) 1 applic OU Q4HR PRN PRN Reason: Dry Eye(s) Simple Syrup (Simple Syrup 15 Ml) 15 ml FEEDTUBE PRN PRN PRN Reason: Hypoglycemia Simple Syrup (Simple Syrup 15 Ml) 30 ml FEEDTUBE PRN PRN PRN Reason: Hypoglycemia Sodium Bicarbonate (Sodium Bicarbonate 325 Mg Tab) 325 mg FEEDTUBE PRN PRN PRN Reason: For Clogged Feeding Tube Sodium Bicarbonate (Sodium Bicarbonate 650 Mg Tab) 1,300 mg PO TID ERINN Topiramate (Topiramate Tab 25 Mg Tab) 50 mg PO Q12HR ERINN Last Admin: 10/11/20 09:41 Dose: 50 mg Documented by: Vancomycin HCl (Vancomycin 250 Mg/10 Ml Oral Liqd) 125 mg PO Q6H ERINN; Protocol Last Admin: 10/11/20 14:56 Dose: 125 mg Documented by: Objective Vital Signs - 12hr 10/11/20 10/11/20 10/11/20 07:54 07:58 08:00 Temperature 100.5 F H Pulse Rate 89 90 88 Pulse Rate [ Anterior Bilateral Throughout] Pulse Rate [ 93 H From Monitor] Respiratory 25 H 30 H Rate Respiratory Rate [Anterior Bilateral Throughout] Blood Pressure 150/86 O2 Sat by Pulse 97 93 Oximetry 10/11/20 10/11/20 10/11/20 08:01 08:11 08:15 Temperature Pulse Rate 94 H 90 Pulse Rate [ 91 H Anterior Bilateral Throughout] Pulse Rate [ From Monitor] Respiratory 27 H Rate Respiratory 30 H Rate [Anterior Bilateral Throughout] Blood Pressure 177/85 142/79 O2 Sat by Pulse 98 92 Oximetry 10/11/20 10/11/20 10/11/20 08:30 08:45 09:00 Temperature Pulse Rate 86 83 82 Pulse Rate [ Anterior Bilateral Throughout] Pulse Rate [ From Monitor] Respiratory 28 H 26 H 26 H Rate Respiratory Rate [Anterior Bilateral Throughout] Blood Pressure 153/83 144/81 157/78 O2 Sat by Pulse 92 90 92 Oximetry 10/11/20 10/11/20 10/11/20 09:15 09:30 09:45 Temperature Pulse Rate 86 81 83 Pulse Rate [ Anterior Bilateral Throughout] Pulse Rate [ From Monitor] Respiratory 22 27 H 28 H Rate Respiratory Rate [Anterior Bilateral Throughout] Blood Pressure 153/84 150/81 156/81 O2 Sat by Pulse 93 92 93 Oximetry 10/11/20 10/11/20 10/11/20 10:00 10:15 10:30 Temperature Pulse Rate 85 85 83 Pulse Rate [ Anterior Bilateral Throughout] Pulse Rate [ From Monitor] Respiratory 31 H 30 H 24 Rate Respiratory Rate [Anterior Bilateral Throughout] Blood Pressure 153/84 143/87 150/87 O2 Sat by Pulse 93 93 Oximetry 10/11/20 10/11/20 10/11/20 10:45 11:00 11:15 Temperature Pulse Rate 78 76 77 Pulse Rate [ Anterior Bilateral Throughout] Pulse Rate [ From Monitor] Respiratory 19 24 23 Rate Respiratory Rate [Anterior Bilateral Throughout] Blood Pressure 156/84 151/84 138/81 O2 Sat by Pulse 93 96 93 Oximetry 10/11/20 10/11/20 10/11/20 11:30 11:45 12:00 Temperature 98.4 F Pulse Rate 81 80 80 Pulse Rate [ Anterior Bilateral Throughout] Pulse Rate [ 81 From Monitor] Respiratory 22 Rate Respiratory Rate [Anterior Bilateral Throughout] Blood Pressure 136/78 136/80 137/79 O2 Sat by Pulse 94 94 98 Oximetry 10/11/20 10/11/20 10/11/20 12:15 12:22 12:30 Temperature Pulse Rate 80 85 85 Pulse Rate [ Anterior Bilateral Throughout] Pulse Rate [ From Monitor] Respiratory 23 27 H Rate Respiratory Rate [Anterior Bilateral Throughout] Blood Pressure 135/75 143/87 149/88 O2 Sat by Pulse 94 98 98 Oximetry 10/11/20 10/11/20 10/11/20 12:45 13:00 13:15 Temperature Pulse Rate 85 82 82 Pulse Rate [ Anterior Bilateral Throughout] Pulse Rate [ From Monitor] Respiratory 24 Rate Respiratory Rate [Anterior Bilateral Throughout] Blood Pressure 143/77 143/81 141/82 O2 Sat by Pulse 95 93 93 Oximetry 10/11/20 10/11/20 10/11/20 13:30 13:46 14:00 Temperature Pulse Rate 84 83 86 Pulse Rate [ Anterior Bilateral Throughout] Pulse Rate [ From Monitor] Respiratory 26 H 26 H 23 Rate Respiratory Rate [Anterior Bilateral Throughout] Blood Pressure 136/88 143/83 146/84 O2 Sat by Pulse 94 95 96 Oximetry 10/11/20 10/11/20 10/11/20 14:16 14:20 14:30 Temperature Pulse Rate 82 82 80 Pulse Rate [ Anterior Bilateral Throughout] Pulse Rate [ From Monitor] Respiratory 21 26 H Rate Respiratory Rate [Anterior Bilateral Throughout] Blood Pressure 149/87 149/87 158/89 O2 Sat by Pulse 96 93 Oximetry 10/11/20 10/11/20 10/11/20 14:45 15:00 15:16 Temperature Pulse Rate 77 75 78 Pulse Rate [ Anterior Bilateral Throughout] Pulse Rate [ From Monitor] Respiratory 26 H 25 H 28 H Rate Respiratory Rate [Anterior Bilateral Throughout] Blood Pressure 154/94 163/91 163/91 O2 Sat by Pulse 94 96 97 Oximetry 10/11/20 10/11/20 10/11/20 15:30 15:41 15:45 Temperature Pulse Rate 87 80 75 Pulse Rate [ Anterior Bilateral Throughout] Pulse Rate [ From Monitor] Respiratory 27 H 26 H Rate Respiratory Rate [Anterior Bilateral Throughout] Blood Pressure 133/94 133/94 142/93 O2 Sat by Pulse 97 99 98 Oximetry 10/11/20 10/11/20 10/11/20 16:00 16:15 16:28 Temperature 99.8 F H Pulse Rate 70 76 Pulse Rate [ 74 Anterior Bilateral Throughout] Pulse Rate [ 70 From Monitor] Respiratory 24 26 H Rate Respiratory 30 H Rate [Anterior Bilateral Throughout] Blood Pressure 146/93 146/92 O2 Sat by Pulse 100 96 Oximetry 10/11/20 10/11/20 10/11/20 16:30 16:45 17:00 Temperature Pulse Rate 74 74 83 Pulse Rate [ Anterior Bilateral Throughout] Pulse Rate [ From Monitor] Respiratory 25 H 25 H 28 H Rate Respiratory Rate [Anterior Bilateral Throughout] Blood Pressure 145/93 143/90 137/88 O2 Sat by Pulse 97 96 97 Oximetry 10/11/20 10/11/20 10/11/20 17:15 17:30 17:45 Temperature Pulse Rate 78 81 82 Pulse Rate [ Anterior Bilateral Throughout] Pulse Rate [ From Monitor] Respiratory 26 H 25 H 25 H Rate Respiratory Rate [Anterior Bilateral Throughout] Blood Pressure 134/82 144/88 133/86 O2 Sat by Pulse 96 95 95 Oximetry 10/11/20 18:00 Temperature Pulse Rate 83 Pulse Rate [ Anterior Bilateral Throughout] Pulse Rate [ From Monitor] Respiratory 26 H Rate Respiratory Rate [Anterior Bilateral Throughout] Blood Pressure 136/88 O2 Sat by Pulse 96 Oximetry Constitutional: comatose, other (critically ill on ventilator) Eyes: non-icteric ENT: oropharynx moist, other (orally intubated and not sedated) Neck: other (large in cirumference) Effort: normal Ascultation: Bilateral: clear Cardiovascular: regular rate and rhythm, other (no mrg) Gastrointestinal: normoactive bowel sounds, soft, other (post surgical changes with drain on the left side) Extremities: no cyanosis, pink and warm, anasarca Neurologic: other (unresponsive, not following commands, not tracking) Psychiatric: other (unable to assess) CBC and BMP: 10/11/20 04:00 10/11/20 04:00 ABG, PT/INR, D-dimer: ABG ABG pH 7.534 pH Units (7.350-7.450) H 10/10/20 04:42 POC ABG pCO2 33.1 mmHg (32.0-48.0) 10/09/20 04:39 ABG pCO2 25.0 mm Hg 10/10/20 04:42 POC ABG pO2 33.6 mmHg (83-108) L 10/09/20 04:39 ABG pO2 95.2 mm Hg (80.0-90.0) H 10/10/20 04:42 POC ABG HCO3 26 10/09/20 04:39 ABG O2 Saturation 97.9 % (95.0-99.0) 10/10/20 04:42 PT/INR, D-dimer PT 13.0 Sec. (12.2-14.9) 10/05/20 05:00 INR 1.00 (0.87-1.13) 10/05/20 05:00 D-Dimer > 96551 ng/mlDDU (0-234) H 10/04/20 10:00 Abnormal lab findings: Abnormal Labs 10/02/20 10/02/20 10/02/20 12:03 12:18 12:18 WBC 14.9 H RBC Hgb 9.1 L Hct MCV MCH 22 L MCHC 28 L RDW 17.6 H Plt Count 102 L Lymph % (Auto) Bowman % (Auto) Lymph # (Auto) Bowman # (Auto) Seg Neutrophils % Seg Neuts % (Manual) 36.0 L Lymphocytes % (Manual) 49.0 H Monocytes % (Manual) Nucleated RBC % 6.0 H Seg Neutrophils # Seg Neutrophils # Man Lymphocytes # (Manual) 7.3 H Monocytes # (Manual) PT INR APTT Fibrinogen D-Dimer ABG pH POC ABG pCO2 POC ABG pO2 ABG pO2 ABG HCO3 ABG Base Excess ABG Hemoglobin ABG Oxyhemoglobin ABG Sodium ABG Potassium ABG Chloride ABG Glucose VBG pH Oxyhemoglobin Carboxyhemoglobin Sodium 134 L Potassium Chloride Carbon Dioxide 12 L BUN 6 L Creatinine Glucose 390 H POC Glucose 451 H Lactic Acid Calcium Ionized Calcium Magnesium AST 135 H ALT 85 H Alkaline Phosphatase 172 H Lactate Dehydrogenase 641 H NT-Pro-B Natriuret Pep Total Protein 5.4 L Albumin 2.3 L Arterial Blood Glucose Arterial Blood Ionized Calcium Urine WBC (Auto) Crossmatch 10/02/20 10/02/20 10/02/20 12:50 13:05 13:05 WBC 38.6 H RBC Hgb 8.9 L Hct 29.0 L MCV 73 L MCH 22 L MCHC RDW 17.2 H Plt Count Lymph % (Auto) Bowman % (Auto) Lymph # (Auto) Bowman # (Auto) Seg Neutrophils % Seg Neuts % (Manual) Lymphocytes % (Manual) Monocytes % (Manual) Nucleated RBC % 2.0 H Seg Neutrophils # Seg Neutrophils # Man 20.1 H Lymphocytes # (Manual) 10.4 H Monocytes # (Manual) 2.3 H PT INR APTT Fibrinogen D-Dimer ABG pH POC ABG pCO2 POC ABG pO2 ABG pO2 ABG HCO3 ABG Base Excess ABG Hemoglobin ABG Oxyhemoglobin ABG Sodium ABG Potassium ABG Chloride ABG Glucose VBG pH Oxyhemoglobin Carboxyhemoglobin Sodium Potassium Chloride Carbon Dioxide BUN Creatinine Glucose POC Glucose Lactic Acid Calcium Ionized Calcium Magnesium AST 184 H ALT 113 H Alkaline Phosphatase Lactate Dehydrogenase 769 H NT-Pro-B Natriuret Pep Total Protein Albumin Arterial Blood Glucose Arterial Blood Ionized Calcium Urine WBC (Auto) Crossmatch See Detail 10/02/20 10/02/20 10/02/20 16:25 16:35 16:35 WBC RBC Hgb Hct MCV MCH MCHC RDW Plt Count Lymph % (Auto) Bowman % (Auto) Lymph # (Auto) Bowman # (Auto) Seg Neutrophils % Seg Neuts % (Manual) Lymphocytes % (Manual) Monocytes % (Manual) Nucleated RBC % Seg Neutrophils # Seg Neutrophils # Man Lymphocytes # (Manual) Monocytes # (Manual) PT INR APTT Fibrinogen D-Dimer ABG pH 7.031 L* POC ABG pCO2 POC ABG pO2 ABG pO2 116.8 H ABG HCO3 12.7 L ABG Base Excess -16.9 L ABG Hemoglobin 7.8 L ABG Oxyhemoglobin ABG Sodium ABG Potassium ABG Chloride ABG Glucose VBG pH Oxyhemoglobin 94.9 L Carboxyhemoglobin Sodium Potassium Chloride Carbon Dioxide BUN Creatinine Glucose 403 H POC Glucose Lactic Acid 11.40 H* Calcium 6.3 L D Ionized Calcium Magnesium AST 70 H ALT Alkaline Phosphatase Lactate Dehydrogenase NT-Pro-B Natriuret Pep Total Protein 1.9 L D Albumin 1.2 L Arterial Blood Glucose Arterial Blood Ionized Calcium Urine WBC (Auto) Crossmatch 10/02/20 10/02/20 10/02/20 18:18 18:18 22:30 WBC 11.5 H RBC 2.06 L Hgb 5.5 L* D Hct 17.3 L* D MCV MCH 27 L MCHC RDW 19.5 H Plt Count 60 L Lymph % (Auto) Bowman % (Auto) Lymph # (Auto) Bowman # (Auto) Seg Neutrophils % Seg Neuts % (Manual) Lymphocytes % (Manual) 8.0 L Monocytes % (Manual) 8.0 H Nucleated RBC % 8.0 H Seg Neutrophils # Seg Neutrophils # Man Lymphocytes # (Manual) 0.9 L Monocytes # (Manual) 0.9 H PT 37.1 H INR 3.71 H APTT 135.8 H* Fibrinogen D-Dimer ABG pH 7.067 L* POC ABG pCO2 POC ABG pO2 ABG pO2 183.0 H ABG HCO3 14.1 L ABG Base Excess -15.1 L ABG Hemoglobin 7.7 L ABG Oxyhemoglobin ABG Sodium ABG Potassium ABG Chloride ABG Glucose VBG pH Oxyhemoglobin Carboxyhemoglobin Sodium Potassium Chloride Carbon Dioxide BUN Creatinine Glucose POC Glucose Lactic Acid Calcium Ionized Calcium Magnesium AST ALT Alkaline Phosphatase Lactate Dehydrogenase NT-Pro-B Natriuret Pep Total Protein Albumin Arterial Blood Glucose Arterial Blood Ionized Calcium Urine WBC (Auto) Crossmatch 10/02/20 10/02/20 10/03/20 Unknown Unknown 00:01 WBC RBC Hgb Hct MCV MCH MCHC RDW Plt Count Lymph % (Auto) Bowman % (Auto) Lymph # (Auto) Bowman # (Auto) Seg Neutrophils % Seg Neuts % (Manual) Lymphocytes % (Manual) Monocytes % (Manual) Nucleated RBC % Seg Neutrophils # Seg Neutrophils # Man Lymphocytes # (Manual) Monocytes # (Manual) PT 61.1 H INR 6.92 H* APTT 158.7 H* Fibrinogen < 60 L* D-Dimer > 92912 H ABG pH POC ABG pCO2 POC ABG pO2 ABG pO2 ABG HCO3 ABG Base Excess ABG Hemoglobin ABG Oxyhemoglobin ABG Sodium ABG Potassium ABG Chloride ABG Glucose VBG pH 6.949 L* Oxyhemoglobin Carboxyhemoglobin Sodium Potassium Chloride Carbon Dioxide BUN Creatinine Glucose POC Glucose 196 H Lactic Acid Calcium Ionized Calcium Magnesium AST ALT Alkaline Phosphatase Lactate Dehydrogenase NT-Pro-B Natriuret Pep Total Protein Albumin Arterial Blood Glucose Arterial Blood Ionized Calcium Urine WBC (Auto) Crossmatch 10/03/20 10/03/20 10/03/20 00:40 00:40 00:40 WBC RBC Hgb Hct MCV MCH MCHC RDW Plt Count Lymph % (Auto) Bowman % (Auto) Lymph # (Auto) Bowman # (Auto) Seg Neutrophils % Seg Neuts % (Manual) Lymphocytes % (Manual) Monocytes % (Manual) Nucleated RBC % Seg Neutrophils # Seg Neutrophils # Man Lymphocytes # (Manual) Monocytes # (Manual) PT 15.1 H INR 1.21 H APTT Fibrinogen D-Dimer ABG pH POC ABG pCO2 POC ABG pO2 ABG pO2 ABG HCO3 ABG Base Excess ABG Hemoglobin ABG Oxyhemoglobin ABG Sodium ABG Potassium ABG Chloride ABG Glucose VBG pH Oxyhemoglobin Carboxyhemoglobin Sodium 136 L Potassium Chloride Carbon Dioxide BUN Creatinine 1.6 H D Glucose 106 H POC Glucose Lactic Acid 5.60 H* Calcium 6.5 L Ionized Calcium Magnesium AST 232 H ALT 104 H Alkaline Phosphatase Lactate Dehydrogenase NT-Pro-B Natriuret Pep Total Protein 3.9 L D Albumin 2.4 L Arterial Blood Glucose Arterial Blood Ionized Calcium Urine WBC (Auto) Crossmatch 10/03/20 10/03/20 10/03/20 02:08 02:08 02:08 WBC 17.6 H RBC 3.27 L Hgb 9.9 L D Hct 29.9 L D MCV MCH MCHC RDW 16.5 H Plt Count 75 L Lymph % (Auto) Bowman % (Auto) Lymph # (Auto) [place]man # (Auto) Seg Neutrophils % Seg Neuts % (Manual) 76.0 H Lymphocytes % (Manual) Monocytes % (Manual) Nucleated RBC % 8.0 H Seg Neutrophils # Seg Neutrophils # Man 13.4 H Lymphocytes # (Manual) Monocytes # (Manual) PT INR APTT Fibrinogen D-Dimer ABG pH POC ABG pCO2 POC ABG pO2 ABG pO2 ABG HCO3 ABG Base Excess ABG Hemoglobin ABG Oxyhemoglobin ABG Sodium ABG Potassium ABG Chloride ABG Glucose VBG pH Oxyhemoglobin Carboxyhemoglobin Sodium Potassium Chloride Carbon Dioxide 19 L BUN Creatinine 1.4 H Glucose 306 H POC Glucose Lactic Acid 10.50 H* Calcium 6.4 L Ionized Calcium Magnesium AST ALT Alkaline Phosphatase Lactate Dehydrogenase NT-Pro-B Natriuret Pep Total Protein Albumin Arterial Blood Glucose Arterial Blood Ionized Calcium Urine WBC (Auto) Crossmatch 10/03/20 10/03/20 10/03/20 02:42 03:59 05:31 WBC RBC Hgb Hct MCV MCH MCHC RDW Plt Count Lymph % (Auto) Bowman % (Auto) Lymph # (Auto) [place]man # (Auto) Seg Neutrophils % Seg Neuts % (Manual) Lymphocytes % (Manual) Monocytes % (Manual) Nucleated RBC % Seg Neutrophils # Seg Neutrophils # Man Lymphocytes # (Manual) Monocytes # (Manual) PT INR APTT Fibrinogen D-Dimer ABG pH 7.144 L POC ABG pCO2 54.4 H POC ABG pO2 ABG pO2 ABG HCO3 ABG Base Excess ABG Hemoglobin 10.0 L ABG Oxyhemoglobin ABG Sodium ABG Potassium ABG Chloride 108.0 H ABG Glucose 306 H VBG pH Oxyhemoglobin Carboxyhemoglobin Sodium Potassium Chloride Carbon Dioxide BUN Creatinine Glucose POC Glucose 209 H Lactic Acid 9.20 H* Calcium Ionized Calcium Magnesium AST ALT Alkaline Phosphatase Lactate Dehydrogenase NT-Pro-B Natriuret Pep Total Protein Albumin Arterial Blood Glucose 306 H Arterial Blood Ionized Calcium 3.7 L Urine WBC (Auto) Crossmatch 10/03/20 10/03/20 10/03/20 09:00 09:00 09:00 WBC 27.4 H RBC 2.84 L Hgb 8.5 L Hct 25.1 L MCV MCH MCHC RDW 16.1 H Plt Count 72 L Lymph % (Auto) Bowman % (Auto) Lymph # (Auto) [place] # (Auto) Seg Neutrophils % Seg Neuts % (Manual) Lymphocytes % (Manual) 11.0 L Monocytes % (Manual) Nucleated RBC % 3.0 H Seg Neutrophils # Seg Neutrophils # Man 18.4 H Lymphocytes # (Manual) Monocytes # (Manual) 1.9 H PT INR APTT Fibrinogen D-Dimer ABG pH POC ABG pCO2 POC ABG pO2 ABG pO2 ABG HCO3 ABG Base Excess ABG Hemoglobin ABG Oxyhemoglobin ABG Sodium ABG Potassium ABG Chloride ABG Glucose VBG pH Oxyhemoglobin Carboxyhemoglobin Sodium Potassium Chloride Carbon Dioxide BUN Creatinine 1.7 H Glucose 216 H POC Glucose Lactic Acid 9.20 H* Calcium 6.3 L Ionized Calcium Magnesium AST 331 H ALT 171 H Alkaline Phosphatase Lactate Dehydrogenase NT-Pro-B Natriuret Pep Total Protein 3.7 L Albumin 1.9 L Arterial Blood Glucose Arterial Blood Ionized Calcium Urine WBC (Auto) Crossmatch 10/03/20 10/03/20 10/03/20 11:20 11:46 11:50 WBC 28.7 H RBC 2.67 L Hgb 8.0 L Hct 23.7 L MCV MCH MCHC RDW 16.6 H Plt Count 76 L Lymph % (Auto) Bowman % (Auto) Lymph # (Auto) [place]man # (Auto) Seg Neutrophils % Seg Neuts % (Manual) Lymphocytes % (Manual) Monocytes % (Manual) Nucleated RBC % Seg Neutrophils # Seg Neutrophils # Man Lymphocytes # (Manual) Monocytes # (Manual) PT INR APTT Fibrinogen D-Dimer ABG pH POC ABG pCO2 POC ABG pO2 ABG pO2 ABG HCO3 ABG Base Excess ABG Hemoglobin ABG Oxyhemoglobin ABG Sodium ABG Potassium ABG Chloride ABG Glucose VBG pH Oxyhemoglobin Carboxyhemoglobin Sodium Potassium Chloride Carbon Dioxide BUN Creatinine Glucose POC Glucose 125 H Lactic Acid 8.00 H* Calcium Ionized Calcium Magnesium AST ALT Alkaline Phosphatase Lactate Dehydrogenase NT-Pro-B Natriuret Pep Total Protein Albumin Arterial Blood Glucose Arterial Blood Ionized Calcium Urine WBC (Auto) Crossmatch 10/03/20 10/04/20 10/04/20 11:50 00:40 00:40 WBC RBC Hgb 6.8 L Hct 19.4 L* MCV MCH MCHC RDW Plt Count 49 L Lymph % (Auto) Bowman % (Auto) Lymph # (Auto) [place]man # (Auto) Seg Neutrophils % Seg Neuts % (Manual) Lymphocytes % (Manual) Monocytes % (Manual) Nucleated RBC % Seg Neutrophils # Seg Neutrophils # Man Lymphocytes # (Manual) Monocytes # (Manual) PT INR APTT Fibrinogen D-Dimer ABG pH 7.244 L POC ABG pCO2 POC ABG pO2 ABG pO2 ABG HCO3 ABG Base Excess -4.5 L ABG Hemoglobin 7.3 L ABG Oxyhemoglobin ABG Sodium ABG Potassium ABG Chloride ABG Glucose VBG pH Oxyhemoglobin Carboxyhemoglobin Sodium Potassium Chloride Carbon Dioxide BUN Creatinine Glucose POC Glucose Lactic Acid Calcium Ionized Calcium Magnesium AST ALT Alkaline Phosphatase Lactate Dehydrogenase NT-Pro-B Natriuret Pep Total Protein Albumin Arterial Blood Glucose Arterial Blood Ionized Calcium Urine WBC (Auto) Crossmatch 10/04/20 10/04/20 10/04/20 03:53 10:00 10:00 WBC 14.6 H RBC 2.57 L Hgb 7.6 L Hct 22.5 L MCV MCH MCHC RDW 15.8 H Plt Count 38 L Lymph % (Auto) 7.7 L Bowman % (Auto) Lymph # (Auto) 1.1 L Bowman # (Auto) 0.9 H Seg Neutrophils % 85.6 H Seg Neuts % (Manual) Lymphocytes % (Manual) Monocytes % (Manual) Nucleated RBC % Seg Neutrophils # 12.5 H Seg Neutrophils # Man Lymphocytes # (Manual) Monocytes # (Manual) PT INR APTT Fibrinogen D-Dimer ABG pH POC ABG pCO2 POC ABG pO2 110.6 H ABG pO2 ABG HCO3 ABG Base Excess ABG Hemoglobin 6.7 L ABG Oxyhemoglobin ABG Sodium 132.0 L ABG Potassium ABG Chloride ABG Glucose 111 H VBG pH Oxyhemoglobin Carboxyhemoglobin Sodium 134 L D Potassium Chloride 97.6 L Carbon Dioxide BUN Creatinine 1.7 H Glucose POC Glucose Lactic Acid Calcium 6.3 L Ionized Calcium Magnesium AST 203 H ALT 81 H Alkaline Phosphatase Lactate Dehydrogenase NT-Pro-B Natriuret Pep Total Protein 3.9 L Albumin 2.3 L Arterial Blood Glucose 111 H Arterial Blood Ionized Calcium 3.5 L Urine WBC (Auto) Crossmatch 10/04/20 10/04/20 10/04/20 10:00 10:00 10:14 WBC RBC Hgb Hct MCV MCH MCHC RDW Plt Count Lymph % (Auto) Bowman % (Auto) Lymph # (Auto) Bowman # (Auto) Seg Neutrophils % Seg Neuts % (Manual) Lymphocytes % (Manual) Monocytes % (Manual) Nucleated RBC % Seg Neutrophils # Seg Neutrophils # Man Lymphocytes # (Manual) Monocytes # (Manual) PT INR APTT Fibrinogen D-Dimer > 13238 H ABG pH POC ABG pCO2 POC ABG pO2 ABG pO2 ABG HCO3 ABG Base Excess ABG Hemoglobin ABG Oxyhemoglobin ABG Sodium ABG Potassium ABG Chloride ABG Glucose VBG pH Oxyhemoglobin Carboxyhemoglobin Sodium Potassium Chloride Carbon Dioxide BUN Creatinine Glucose POC Glucose Lactic Acid 3.90 H* Calcium Ionized Calcium Magnesium AST ALT Alkaline Phosphatase Lactate Dehydrogenase NT-Pro-B Natriuret Pep 2788 H Total Protein Albumin Arterial Blood Glucose Arterial Blood Ionized Calcium Urine WBC (Auto) Crossmatch 10/04/20 10/04/20 10/04/20 14:00 14:00 18:00 WBC 15.7 H RBC 3.17 L Hgb 9.3 L 9.6 L Hct 27.2 L 28.0 L MCV MCH MCHC RDW 16.9 H Plt Count 41 L Lymph % (Auto) 8.6 L Bowman % (Auto) Lymph # (Auto) Bowman # (Auto) 0.9 H Seg Neutrophils % 85.4 H Seg Neuts % (Manual) Lymphocytes % (Manual) Monocytes % (Manual) Nucleated RBC % Seg Neutrophils # 13.4 H Seg Neutrophils # Man Lymphocytes # (Manual) Monocytes # (Manual) PT INR APTT Fibrinogen D-Dimer ABG pH POC ABG pCO2 POC ABG pO2 ABG pO2 ABG HCO3 ABG Base Excess ABG Hemoglobin ABG Oxyhemoglobin ABG Sodium ABG Potassium ABG Chloride ABG Glucose VBG pH Oxyhemoglobin Carboxyhemoglobin Sodium 133 L Potassium Chloride 96.4 L Carbon Dioxide BUN 18 H Creatinine 1.7 H Glucose POC Glucose Lactic Acid Calcium 6.3 L Ionized Calcium Magnesium AST ALT Alkaline Phosphatase Lactate Dehydrogenase NT-Pro-B Natriuret Pep Total Protein Albumin Arterial Blood Glucose Arterial Blood Ionized Calcium Urine WBC (Auto) Crossmatch 10/04/20 10/04/20 10/05/20 18:00 22:00 05:00 WBC 17.6 H RBC 3.34 L Hgb 9.9 L Hct 29.4 L MCV MCH MCHC RDW 17.1 H Plt Count 56 L Lymph % (Auto) 8.5 L Bowman % (Auto) Lymph # (Auto) Bowman # (Auto) 1.0 H Seg Neutrophils % 85.1 H Seg Neuts % (Manual) Lymphocytes % (Manual) Monocytes % (Manual) Nucleated RBC % Seg Neutrophils # 15.0 H Seg Neutrophils # Man Lymphocytes # (Manual) Monocytes # (Manual) PT INR APTT Fibrinogen D-Dimer ABG pH POC ABG pCO2 POC ABG pO2 ABG pO2 ABG HCO3 ABG Base Excess ABG Hemoglobin ABG Oxyhemoglobin ABG Sodium ABG Potassium ABG Chloride ABG Glucose VBG pH Oxyhemoglobin Carboxyhemoglobin Sodium 136 L Potassium Chloride Carbon Dioxide BUN 18 H Creatinine 1.7 H Glucose POC Glucose Lactic Acid 2.30 H* Calcium 6.6 L Ionized Calcium Magnesium AST ALT Alkaline Phosphatase Lactate Dehydrogenase NT-Pro-B Natriuret Pep Total Protein Albumin Arterial Blood Glucose Arterial Blood Ionized Calcium Urine WBC (Auto) Crossmatch 10/05/20 10/05/20 10/05/20 05:00 05:00 05:03 WBC RBC Hgb Hct MCV MCH MCHC RDW Plt Count Lymph % (Auto) Bowman % (Auto) Lymph # (Auto) [place] # (Auto) Seg Neutrophils % Seg Neuts % (Manual) Lymphocytes % (Manual) Monocytes % (Manual) Nucleated RBC % Seg Neutrophils # Seg Neutrophils # Man Lymphocytes # (Manual) Monocytes # (Manual) PT INR APTT Fibrinogen D-Dimer ABG pH 7.458 H POC ABG pCO2 POC ABG pO2 ABG pO2 74.3 L ABG HCO3 27.5 H ABG Base Excess 3.4 H ABG Hemoglobin 10.0 L ABG Oxyhemoglobin ABG Sodium ABG Potassium ABG Chloride ABG Glucose VBG pH Oxyhemoglobin 94.9 L Carboxyhemoglobin Sodium Potassium Chloride Carbon Dioxide BUN 19 H Creatinine 1.8 H Glucose POC Glucose Lactic Acid Calcium 6.8 L Ionized Calcium 3.9 L Magnesium AST 225 H ALT 85 H Alkaline Phosphatase Lactate Dehydrogenase NT-Pro-B Natriuret Pep Total Protein 4.5 L Albumin 2.7 L Arterial Blood Glucose Arterial Blood Ionized Calcium Urine WBC (Auto) Crossmatch 10/05/20 10/05/20 10/05/20 10:10 15:00 19:40 WBC RBC Hgb Hct MCV MCH MCHC RDW Plt Count Lymph % (Auto) [place] % (Auto) Lymph # (Auto) [place] # (Auto) Seg Neutrophils % Seg Neuts % (Manual) Lymphocytes % (Manual) Monocytes % (Manual) Nucleated RBC % Seg Neutrophils # Seg Neutrophils # Man Lymphocytes # (Manual) Monocytes # (Manual) PT INR APTT Fibrinogen D-Dimer ABG pH POC ABG pCO2 POC ABG pO2 ABG pO2 ABG HCO3 ABG Base Excess ABG Hemoglobin ABG Oxyhemoglobin ABG Sodium ABG Potassium ABG Chloride ABG Glucose VBG pH Oxyhemoglobin Carboxyhemoglobin Sodium Potassium 3.5 L Chloride Carbon Dioxide 31 H 32 H BUN 19 H 19 H Creatinine 1.8 H 1.8 H Glucose POC Glucose Lactic Acid Calcium 7.0 L 7.2 L Ionized Calcium Magnesium 2.90 H AST ALT Alkaline Phosphatase Lactate Dehydrogenase NT-Pro-B Natriuret Pep Total Protein Albumin Arterial Blood Glucose Arterial Blood Ionized Calcium Urine WBC (Auto) Crossmatch 10/06/20 10/06/20 10/06/20 01:05 03:12 04:00 WBC 17.1 H RBC 3.47 L Hgb Hct MCV MCH MCHC RDW 17.4 H Plt Count 82 L Lymph % (Auto) 8.3 L [place] % (Auto) Lymph # (Auto) [place] # (Auto) 1.1 H Seg Neutrophils % 83.8 H Seg Neuts % (Manual) Lymphocytes % (Manual) Monocytes % (Manual) Nucleated RBC % Seg Neutrophils # 14.3 H Seg Neutrophils # Man Lymphocytes # (Manual) Monocytes # (Manual) PT INR APTT Fibrinogen D-Dimer ABG pH 7.474 H POC ABG pCO2 POC ABG pO2 129.5 H ABG pO2 ABG HCO3 ABG Base Excess ABG Hemoglobin 11.4 L ABG Oxyhemoglobin ABG Sodium 131.8 L ABG Potassium ABG Chloride ABG Glucose 103 H VBG pH Oxyhemoglobin Carboxyhemoglobin 0.3 L Sodium Potassium Chloride Carbon Dioxide BUN Creatinine Glucose POC Glucose Lactic Acid Calcium Ionized Calcium Magnesium 3.70 H AST ALT Alkaline Phosphatase Lactate Dehydrogenase NT-Pro-B Natriuret Pep Total Protein Albumin Arterial Blood Glucose 103 H Arterial Blood Ionized Calcium 4.2 L Urine WBC (Auto) Crossmatch 10/06/20 10/06/20 10/06/20 04:00 05:31 08:12 WBC RBC Hgb Hct MCV MCH MCHC RDW Plt Count Lymph % (Auto) [place] % (Auto) Lymph # (Auto) [place] # (Auto) Seg Neutrophils % Seg Neuts % (Manual) Lymphocytes % (Manual) Monocytes % (Manual) Nucleated RBC % Seg Neutrophils # Seg Neutrophils # Man Lymphocytes # (Manual) Monocytes # (Manual) PT INR APTT Fibrinogen D-Dimer ABG pH POC ABG pCO2 POC ABG pO2 ABG pO2 ABG HCO3 ABG Base Excess ABG Hemoglobin ABG Oxyhemoglobin ABG Sodium ABG Potassium ABG Chloride ABG Glucose VBG pH Oxyhemoglobin Carboxyhemoglobin Sodium Potassium 3.5 L Chloride Carbon Dioxide BUN 19 H Creatinine 1.8 H Glucose 102 H POC Glucose 116 H Lactic Acid Calcium 7.2 L Ionized Calcium Magnesium 5.40 H AST 307 H ALT 137 H Alkaline Phosphatase Lactate Dehydrogenase NT-Pro-B Natriuret Pep Total Protein 4.5 L Albumin 2.6 L Arterial Blood Glucose Arterial Blood Ionized Calcium Urine WBC (Auto) Crossmatch 10/06/20 10/06/20 10/06/20 11:00 11:50 20:13 WBC RBC Hgb Hct MCV MCH MCHC RDW Plt Count Lymph % (Auto) [place] % (Auto) Lymph # (Auto) [place] # (Auto) Seg Neutrophils % Seg Neuts % (Manual) Lymphocytes % (Manual) Monocytes % (Manual) Nucleated RBC % Seg Neutrophils # Seg Neutrophils # Man Lymphocytes # (Manual) Monocytes # (Manual) PT INR APTT Fibrinogen D-Dimer ABG pH POC ABG pCO2 POC ABG pO2 ABG pO2 ABG HCO3 ABG Base Excess ABG Hemoglobin ABG Oxyhemoglobin ABG Sodium ABG Potassium ABG Chloride ABG Glucose VBG pH Oxyhemoglobin Carboxyhemoglobin Sodium Potassium Chloride Carbon Dioxide BUN Creatinine Glucose POC Glucose 106 H Lactic Acid Calcium Ionized Calcium Magnesium 6.50 H 6.20 H AST ALT Alkaline Phosphatase Lactate Dehydrogenase NT-Pro-B Natriuret Pep Total Protein Albumin Arterial Blood Glucose Arterial Blood Ionized Calcium Urine WBC (Auto) Crossmatch 10/06/20 10/06/20 10/06/20 20:17 22:29 23:57 WBC RBC Hgb Hct MCV MCH MCHC RDW Plt Count Lymph % (Auto) [place] % (Auto) Lymph # (Auto) [place] # (Auto) Seg Neutrophils % Seg Neuts % (Manual) Lymphocytes % (Manual) Monocytes % (Manual) Nucleated RBC % Seg Neutrophils # Seg Neutrophils # Man Lymphocytes # (Manual) Monocytes # (Manual) PT INR APTT Fibrinogen D-Dimer ABG pH POC ABG pCO2 POC ABG pO2 ABG pO2 ABG HCO3 ABG Base Excess ABG Hemoglobin ABG Oxyhemoglobin ABG Sodium ABG Potassium ABG Chloride ABG Glucose VBG pH Oxyhemoglobin Carboxyhemoglobin Sodium Potassium Chloride Carbon Dioxide BUN Creatinine Glucose POC Glucose 112 H 126 H 133 H Lactic Acid Calcium Ionized Calcium Magnesium AST ALT Alkaline Phosphatase Lactate Dehydrogenase NT-Pro-B Natriuret Pep Total Protein Albumin Arterial Blood Glucose Arterial Blood Ionized Calcium Urine WBC (Auto) Crossmatch 10/07/20 10/07/20 10/07/20 00:35 02:22 03:16 WBC RBC Hgb Hct MCV MCH MCHC RDW Plt Count Lymph % (Auto) [place] % (Auto) Lymph # (Auto) [place] # (Auto) Seg Neutrophils % Seg Neuts % (Manual) Lymphocytes % (Manual) Monocytes % (Manual) Nucleated RBC % Seg Neutrophils # Seg Neutrophils # Man Lymphocytes # (Manual) Monocytes # (Manual) PT INR APTT Fibrinogen D-Dimer ABG pH POC ABG pCO2 POC ABG pO2 ABG pO2 ABG HCO3 ABG Base Excess ABG Hemoglobin 11.6 L ABG Oxyhemoglobin ABG Sodium ABG Potassium ABG Chloride ABG Glucose 156 H VBG pH Oxyhemoglobin Carboxyhemoglobin 0.3 L Sodium Potassium Chloride Carbon Dioxide BUN Creatinine Glucose POC Glucose 124 H Lactic Acid Calcium Ionized Calcium Magnesium 5.90 H AST ALT Alkaline Phosphatase Lactate Dehydrogenase NT-Pro-B Natriuret Pep Total Protein Albumin Arterial Blood Glucose 156 H Arterial Blood Ionized Calcium 4.2 L Urine WBC (Auto) Crossmatch 10/07/20 10/07/20 10/07/20 04:06 05:45 07:05 WBC 19.2 H RBC 3.57 L Hgb Hct MCV MCH MCHC 35 H RDW 17.1 H Plt Count 129 L Lymph % (Auto) [place] % (Auto) Lymph # (Auto) [place] # (Auto) Seg Neutrophils % Seg Neuts % (Manual) 94.0 H Lymphocytes % (Manual) 6.0 L Monocytes % (Manual) Nucleated RBC % Seg Neutrophils # Seg Neutrophils # Man 18.0 H Lymphocytes # (Manual) Monocytes # (Manual) PT INR APTT Fibrinogen D-Dimer ABG pH POC ABG pCO2 POC ABG pO2 ABG pO2 ABG HCO3 ABG Base Excess ABG Hemoglobin ABG Oxyhemoglobin ABG Sodium ABG Potassium ABG Chloride ABG Glucose VBG pH Oxyhemoglobin Carboxyhemoglobin Sodium Potassium Chloride Carbon Dioxide BUN Creatinine Glucose POC Glucose 135 H 149 H Lactic Acid Calcium Ionized Calcium Magnesium AST ALT Alkaline Phosphatase Lactate Dehydrogenase NT-Pro-B Natriuret Pep Total Protein Albumin Arterial Blood Glucose Arterial Blood Ionized Calcium Urine WBC (Auto) Crossmatch 10/07/20 10/07/20 10/07/20 07:05 07:05 12:21 WBC RBC Hgb Hct MCV MCH MCHC RDW Plt Count Lymph % (Auto) [place] % (Auto) Lymph # (Auto) [place] # (Auto) Seg Neutrophils % Seg Neuts % (Manual) Lymphocytes % (Manual) Monocytes % (Manual) Nucleated RBC % Seg Neutrophils # Seg Neutrophils # Man Lymphocytes # (Manual) Monocytes # (Manual) PT INR APTT Fibrinogen D-Dimer ABG pH POC ABG pCO2 POC ABG pO2 ABG pO2 ABG HCO3 ABG Base Excess ABG Hemoglobin ABG Oxyhemoglobin ABG Sodium ABG Potassium ABG Chloride ABG Glucose VBG pH Oxyhemoglobin Carboxyhemoglobin Sodium Potassium Chloride Carbon Dioxide BUN 21 H Creatinine 1.7 H Glucose 171 H POC Glucose 124 H Lactic Acid Calcium 7.4 L Ionized Calcium Magnesium 6.10 H AST 245 H ALT 147 H Alkaline Phosphatase Lactate Dehydrogenase NT-Pro-B Natriuret Pep Total Protein 5.3 L Albumin 2.8 L Arterial Blood Glucose Arterial Blood Ionized Calcium Urine WBC (Auto) Crossmatch 10/07/20 10/07/20 10/07/20 19:52 21:00 21:50 WBC RBC Hgb Hct MCV MCH MCHC RDW Plt Count Lymph % (Auto) [place] % (Auto) Lymph # (Auto) [place] # (Auto) Seg Neutrophils % Seg Neuts % (Manual) Lymphocytes % (Manual) Monocytes % (Manual) Nucleated RBC % Seg Neutrophils # Seg Neutrophils # Man Lymphocytes # (Manual) Monocytes # (Manual) PT INR APTT Fibrinogen D-Dimer ABG pH POC ABG pCO2 POC ABG pO2 ABG pO2 ABG HCO3 ABG Base Excess ABG Hemoglobin ABG Oxyhemoglobin ABG Sodium ABG Potassium ABG Chloride ABG Glucose VBG pH Oxyhemoglobin Carboxyhemoglobin Sodium Potassium Chloride Carbon Dioxide BUN Creatinine Glucose POC Glucose 193 H 138 H Lactic Acid Calcium Ionized Calcium 4.4 L Magnesium AST ALT Alkaline Phosphatase Lactate Dehydrogenase NT-Pro-B Natriuret Pep Total Protein Albumin Arterial Blood Glucose Arterial Blood Ionized Calcium Urine WBC (Auto) Crossmatch 10/07/20 10/08/20 10/08/20 23:41 04:20 05:30 WBC RBC Hgb Hct MCV MCH MCHC RDW Plt Count Lymph % (Auto) [place] % (Auto) Lymph # (Auto) [place] # (Auto) Seg Neutrophils % Seg Neuts % (Manual) Lymphocytes % (Manual) Monocytes % (Manual) Nucleated RBC % Seg Neutrophils # Seg Neutrophils # Man Lymphocytes # (Manual) Monocytes # (Manual) PT INR APTT Fibrinogen D-Dimer ABG pH 7.467 H POC ABG pCO2 POC ABG pO2 189.8 H ABG pO2 ABG HCO3 ABG Base Excess ABG Hemoglobin 10.8 L ABG Oxyhemoglobin ABG Sodium ABG Potassium ABG Chloride ABG Glucose 133 H VBG pH Oxyhemoglobin Carboxyhemoglobin Sodium Potassium Chloride Carbon Dioxide BUN Creatinine Glucose POC Glucose 118 H 114 H Lactic Acid Calcium Ionized Calcium Magnesium AST ALT Alkaline Phosphatase Lactate Dehydrogenase NT-Pro-B Natriuret Pep Total Protein Albumin Arterial Blood Glucose 133 H Arterial Blood Ionized Calcium 4.2 L Urine WBC (Auto) Crossmatch 10/08/20 10/08/20 10/08/20 05:43 06:42 06:42 WBC 23.6 H RBC 3.54 L Hgb Hct MCV MCH MCHC RDW 17.8 H Plt Count Lymph % (Auto) [place] % (Auto) Lymph # (Auto) [place] # (Auto) Seg Neutrophils % Seg Neuts % (Manual) 93.0 H Lymphocytes % (Manual) 3.0 L Monocytes % (Manual) Nucleated RBC % 1.0 H Seg Neutrophils # Seg Neutrophils # Man 21.9 H Lymphocytes # (Manual) 0.7 L Monocytes # (Manual) 0.9 H PT INR APTT Fibrinogen D-Dimer ABG pH POC ABG pCO2 POC ABG pO2 ABG pO2 ABG HCO3 ABG Base Excess ABG Hemoglobin ABG Oxyhemoglobin ABG Sodium ABG Potassium ABG Chloride ABG Glucose VBG pH Oxyhemoglobin Carboxyhemoglobin Sodium Potassium Chloride Carbon Dioxide BUN 28 H Creatinine 1.6 H Glucose 141 H POC Glucose 126 H Lactic Acid Calcium 7.6 L Ionized Calcium Magnesium AST 162 H ALT 103 H Alkaline Phosphatase Lactate Dehydrogenase NT-Pro-B Natriuret Pep Total Protein 5.4 L Albumin 2.7 L Arterial Blood Glucose Arterial Blood Ionized Calcium Urine WBC (Auto) Crossmatch 10/08/20 10/08/20 10/08/20 11:20 16:05 20:14 WBC RBC Hgb Hct MCV MCH MCHC RDW Plt Count Lymph % (Auto) [place] % (Auto) Lymph # (Auto) [place] # (Auto) Seg Neutrophils % Seg Neuts % (Manual) Lymphocytes % (Manual) Monocytes % (Manual) Nucleated RBC % Seg Neutrophils # Seg Neutrophils # Man Lymphocytes # (Manual) Monocytes # (Manual) PT INR APTT Fibrinogen D-Dimer ABG pH POC ABG pCO2 POC ABG pO2 ABG pO2 ABG HCO3 ABG Base Excess ABG Hemoglobin ABG Oxyhemoglobin ABG Sodium ABG Potassium ABG Chloride ABG Glucose VBG pH Oxyhemoglobin Carboxyhemoglobin Sodium Potassium Chloride Carbon Dioxide BUN Creatinine Glucose POC Glucose 127 H 172 H 147 H Lactic Acid Calcium Ionized Calcium Magnesium AST ALT Alkaline Phosphatase Lactate Dehydrogenase NT-Pro-B Natriuret Pep Total Protein Albumin Arterial Blood Glucose Arterial Blood Ionized Calcium Urine WBC (Auto) Crossmatch 10/08/20 10/08/20 10/09/20 21:27 23:24 02:10 WBC RBC Hgb Hct MCV MCH MCHC RDW Plt Count Lymph % (Auto) [place] % (Auto) Lymph # (Auto) [place] # (Auto) Seg Neutrophils % Seg Neuts % (Manual) Lymphocytes % (Manual) Monocytes % (Manual) Nucleated RBC % Seg Neutrophils # Seg Neutrophils # Man Lymphocytes # (Manual) Monocytes # (Manual) PT INR APTT Fibrinogen D-Dimer ABG pH POC ABG pCO2 POC ABG pO2 ABG pO2 ABG HCO3 ABG Base Excess ABG Hemoglobin ABG Oxyhemoglobin ABG Sodium ABG Potassium ABG Chloride ABG Glucose VBG pH Oxyhemoglobin Carboxyhemoglobin Sodium Potassium Chloride Carbon Dioxide BUN Creatinine Glucose POC Glucose 140 H 135 H 111 H Lactic Acid Calcium Ionized Calcium Magnesium AST ALT Alkaline Phosphatase Lactate Dehydrogenase NT-Pro-B Natriuret Pep Total Protein Albumin Arterial Blood Glucose Arterial Blood Ionized Calcium Urine WBC (Auto) Crossmatch 10/09/20 10/09/20 10/09/20 03:44 04:39 05:46 WBC 19.7 H RBC 3.51 L Hgb Hct MCV MCH MCHC RDW 17.7 H Plt Count Lymph % (Auto) [place] % (Auto) Lymph # (Auto) [place] # (Auto) Seg Neutrophils % Seg Neuts % (Manual) 86.0 H Lymphocytes % (Manual) 4.0 L Monocytes % (Manual) 9.0 H Nucleated RBC % Seg Neutrophils # Seg Neutrophils # Man 16.9 H Lymphocytes # (Manual) 0.8 L Monocytes # (Manual) 1.8 H PT INR APTT Fibrinogen D-Dimer ABG pH 7.513 H POC ABG pCO2 POC ABG pO2 33.6 L ABG pO2 ABG HCO3 ABG Base Excess ABG Hemoglobin 11.1 L ABG Oxyhemoglobin 70.2 L ABG Sodium ABG Potassium 3.2 L ABG Chloride 108.0 H ABG Glucose 108 H VBG pH Oxyhemoglobin Carboxyhemoglobin Sodium Potassium Chloride Carbon Dioxide BUN Creatinine Glucose POC Glucose 109 H Lactic Acid Calcium Ionized Calcium Magnesium AST ALT Alkaline Phosphatase Lactate Dehydrogenase NT-Pro-B Natriuret Pep Total Protein Albumin Arterial Blood Glucose 108 H Arterial Blood Ionized Calcium 4.3 L Urine WBC (Auto) Crossmatch 10/09/20 10/10/20 10/10/20 05:46 04:00 04:00 WBC 18.4 H RBC Hgb Hct MCV MCH MCHC RDW 17.5 H Plt Count Lymph % (Auto) 9.8 L [place] % (Auto) 8.8 H Lymph # (Auto) [place] # (Auto) 1.6 H Seg Neutrophils % 80.0 H Seg Neuts % (Manual) Lymphocytes % (Manual) Monocytes % (Manual) Nucleated RBC % Seg Neutrophils # 14.7 H Seg Neutrophils # Man Lymphocytes # (Manual) Monocytes # (Manual) PT INR APTT Fibrinogen D-Dimer ABG pH POC ABG pCO2 POC ABG pO2 ABG pO2 ABG HCO3 ABG Base Excess ABG Hemoglobin ABG Oxyhemoglobin ABG Sodium ABG Potassium ABG Chloride ABG Glucose VBG pH Oxyhemoglobin Carboxyhemoglobin Sodium 146 H Potassium 3.2 L 2.9 L* Chloride 108.9 H 112.6 H Carbon Dioxide BUN 34 H 28 H Creatinine 1.4 H 1.3 H Glucose 109 H 101 H POC Glucose Lactic Acid Calcium 7.6 L 7.8 L Ionized Calcium Magnesium AST 137 H 122 H ALT 99 H 81 H Alkaline Phosphatase Lactate Dehydrogenase NT-Pro-B Natriuret Pep Total Protein 5.1 L 5.2 L Albumin 2.6 L 2.7 L Arterial Blood Glucose Arterial Blood Ionized Calcium Urine WBC (Auto) Crossmatch 10/10/20 10/10/20 10/11/20 04:42 09:50 00:44 WBC RBC Hgb Hct MCV MCH MCHC RDW Plt Count Lymph % (Auto) [place] % (Auto) Lymph # (Auto) [place] # (Auto) Seg Neutrophils % Seg Neuts % (Manual) Lymphocytes % (Manual) Monocytes % (Manual) Nucleated RBC % Seg Neutrophils # Seg Neutrophils # Man Lymphocytes # (Manual) Monocytes # (Manual) PT INR APTT Fibrinogen D-Dimer ABG pH 7.534 H POC ABG pCO2 POC ABG pO2 ABG pO2 95.2 H ABG HCO3 ABG Base Excess ABG Hemoglobin 11.3 L ABG Oxyhemoglobin ABG Sodium ABG Potassium ABG Chloride ABG Glucose VBG pH Oxyhemoglobin Carboxyhemoglobin Sodium Potassium Chloride Carbon Dioxide BUN Creatinine Glucose POC Glucose 109 H 106 H Lactic Acid Calcium Ionized Calcium Magnesium AST ALT Alkaline Phosphatase Lactate Dehydrogenase NT-Pro-B Natriuret Pep Total Protein Albumin Arterial Blood Glucose Arterial Blood Ionized Calcium Urine WBC (Auto) Crossmatch 10/11/20 10/11/20 10/11/20 04:00 04:00 06:08 WBC 27.0 H RBC Hgb Hct MCV MCH MCHC RDW 17.7 H Plt Count Lymph % (Auto) 6.3 L [place] % (Auto) Lymph # (Auto) [place] # (Auto) 1.5 H Seg Neutrophils % 87.1 H Seg Neuts % (Manual) Lymphocytes % (Manual) Monocytes % (Manual) Nucleated RBC % Seg Neutrophils # 23.5 H Seg Neutrophils # Man Lymphocytes # (Manual) Monocytes # (Manual) PT INR APTT Fibrinogen D-Dimer ABG pH POC ABG pCO2 POC ABG pO2 ABG pO2 ABG HCO3 ABG Base Excess ABG Hemoglobin ABG Oxyhemoglobin ABG Sodium ABG Potassium ABG Chloride ABG Glucose VBG pH Oxyhemoglobin Carboxyhemoglobin Sodium Potassium 3.2 L Chloride 110.4 H Carbon Dioxide 19 L BUN 22 H Creatinine Glucose 116 H POC Glucose 107 H Lactic Acid Calcium 7.7 L Ionized Calcium Magnesium 1.60 L AST ALT Alkaline Phosphatase Lactate Dehydrogenase NT-Pro-B Natriuret Pep Total Protein Albumin Arterial Blood Glucose Arterial Blood Ionized Calcium Urine WBC (Auto) Crossmatch 10/11/20 10/11/20 11:41 13:26 WBC RBC Hgb Hct MCV MCH MCHC RDW Plt Count Lymph % (Auto) [place] % (Auto) Lymph # (Auto) [place] # (Auto) Seg Neutrophils % Seg Neuts % (Manual) Lymphocytes % (Manual) Monocytes % (Manual) Nucleated RBC % Seg Neutrophils # Seg Neutrophils # Man Lymphocytes # (Manual) Monocytes # (Manual) PT INR APTT Fibrinogen D-Dimer ABG pH POC ABG pCO2 POC ABG pO2 ABG pO2 ABG HCO3 ABG Base Excess ABG Hemoglobin ABG Oxyhemoglobin ABG Sodium ABG Potassium ABG Chloride ABG Glucose VBG pH Oxyhemoglobin Carboxyhemoglobin Sodium Potassium Chloride Carbon Dioxide BUN Creatinine Glucose POC Glucose 116 H Lactic Acid Calcium Ionized Calcium Magnesium AST ALT Alkaline Phosphatase Lactate Dehydrogenase NT-Pro-B Natriuret Pep Total Protein Albumin Arterial Blood Glucose Arterial Blood Ionized Calcium Urine WBC (Auto) 24.0 H Crossmatch Chest x-ray: report reviewed, image reviewed (improved interstitial edema)
[2020-10-11] MEDS: SODIUM BICARBONATE 650 MG TAB PO SCH (20:37)
[2020-10-12] MEDS: IPRATROPIUM/ALBUTEROL SULFATE 3 ML AMPUL.NEB IH SCH ×3 (00:32→16:02)
[2020-10-12] MEDS: VANCOMYCIN 250 MG/10 ML ORAL LIQD PO SCH ×4 (01:02→21:51)
[2020-10-12 03:33] LABS: BUN/Creatinine Ratio 18; Blood Urea Nitrogen 16 mg/dL (7-17); Calcium 7.2 mg/dL (8.4-10.2); Hemolysis Index 2
[2020-10-12 03:40] LABS: Hematocrit 30.6 % (30.3-42.9); Hemoglobin 9.8 gm/dl (10.1-14.3); Mean Corpuscular HGB Conc 32 % (30-34); Mean Corpuscular Volume 90 fl (79-97); Platelet Count 281 K/mm3 (140-440); Red Blood Count 3.38 M/mm3 (3.65-5.03); Red Cell Distribution Width 18.7 % (13.2-15.2)
[2020-10-12 04:57] LABS: Calcium 7.6 mg/dL (8.4-10.2); Hemolysis Index 38
[2020-10-12 05:03] LABS: BUN/Creatinine Ratio 20; Blood Urea Nitrogen 18 mg/dL (7-17)
[2020-10-12] MEDS: fentaNYL 100 MCG/2 ML INJ IV PRN (05:35)
[2020-10-12 06:46] LABS: Anisocytosis 1+; Eosinophils % (Manual) 0.5 % (0.0-4.3); Monocytes % (Manual) 1.5 % (0.0-7.3); Platelet Estimate Consistent w Auto; Total Cells Counted 200
--- NOTE | 2020-10-12 07:40 | Progress Note ---
Assessment and Plan - Patient Problems (1) Acute respiratory failure with hypoxia Current Visit: Yes Status: Acute Plan to address problem: patient remains intubated will continue to follow wbcs monitor neurological status closely (2) Cardiac arrest Current Visit: Yes Status: Acute (3) DIC (disseminated intravascular coagulation) Current Visit: Yes Status: Acute Subjective - Subjective Date of service: 10/12/20 Principal diagnosis: Eclampsia/HELLP Syndrome, ADOLPH, DIC; s/p , s/p supracervical hyst Interval history: 30y/o POD #9 s/p supracervical hysterectomy for eclampsia and DIC. Patient received large amounts of blood products during her hospitalization. Cardiac arrest during her intrapartum course that lead to an emergent delivery. The patient is currently clinically stable with slight improvement in wbcs today. AVINASH drain removed today with minimal return. Patient remains intubated and unresponsive. Improvement in renal function. Objective - Vital Signs Latest vital signs: Vital Signs Temp Pulse Pulse Pulse Resp Resp BP 10/12/20 06:00 71 22 136/82 10/12/20 05:45 71 21 143/88 10/12/20 05:30 72 25 H 138/84 10/12/20 05:15 74 26 H 142/87 10/12/20 05:00 75 26 H 137/87 10/12/20 04:45 75 26 H 137/86 10/12/20 04:30 76 28 H 137/86 10/12/20 04:24 73 141/88 10/12/20 04:15 75 26 H 141/88 10/12/20 04:00 100.0 F H 74 75 27 H 138/87 10/12/20 03:45 78 27 H 135/88 10/12/20 03:30 76 28 H 145/87 10/12/20 03:15 76 26 H 139/84 10/12/20 03:00 76 26 H 139/82 10/12/20 02:45 76 27 H 139/88 10/12/20 02:30 78 28 H 137/85 10/12/20 02:15 76 28 H 131/84 10/12/20 02:00 76 27 H 138/86 10/12/20 01:45 76 26 H 136/83 10/12/20 01:30 78 27 H 139/87 10/12/20 01:15 79 26 H 141/85 10/12/20 01:00 79 26 H 133/81 10/12/20 00:45 76 25 H 140/83 10/12/20 00:32 74 25 H 10/12/20 00:30 78 26 H 138/85 10/12/20 00:15 78 26 H 132/89 10/12/20 00:03 72 140/86 10/12/20 00:00 100.3 F H 74 76 27 H 140/86 10/11/20 23:45 78 26 H 136/85 10/11/20 23:30 77 27 H 139/88 10/11/20 23:15 75 25 H 136/85 10/11/20 23:01 72 24 138/86 10/11/20 23:00 75 25 H 138/86 10/11/20 22:59 76 26 H 133/80 10/11/20 22:45 78 26 H 133/80 10/11/20 22:30 75 26 H 137/85 10/11/20 22:15 81 27 H 156/96 10/11/20 22:00 75 25 H 136/82 10/11/20 21:45 81 28 H 135/85 10/11/20 21:30 82 30 H 141/88 10/11/20 21:15 81 28 H 136/84 10/11/20 21:00 81 27 H 143/84 10/11/20 20:45 83 27 H 136/86 10/11/20 20:37 85 136/86 10/11/20 20:31 83 136/86 10/11/20 20:30 83 27 H 136/86 10/11/20 20:15 82 27 H 136/86 10/11/20 20:00 100.3 F H 88 88 24 139/81 10/11/20 19:45 85 28 H 136/85 10/11/20 19:30 85 27 H 134/86 10/11/20 19:15 82 27 H 139/86 10/11/20 19:00 81 27 H 139/86 10/11/20 18:45 82 27 H 143/91 10/11/20 18:30 79 26 H 130/79 10/11/20 18:15 81 27 H 139/83 10/11/20 18:00 83 26 H 136/88 10/11/20 17:45 82 25 H 133/86 10/11/20 17:30 81 25 H 144/88 10/11/20 17:15 78 26 H 134/82 10/11/20 17:00 83 28 H 137/88 10/11/20 16:45 74 25 H 143/90 10/11/20 16:30 74 25 H 145/93 10/11/20 16:28 74 30 H 10/11/20 16:15 76 26 H 146/92 10/11/20 16:00 99.8 F H 70 70 24 146/93 10/11/20 15:45 75 26 H 142/93 10/11/20 15:41 80 133/94 10/11/20 15:30 87 27 H 133/94 10/11/20 15:16 78 28 H 163/91 10/11/20 15:00 75 25 H 163/91 10/11/20 14:45 77 26 H 154/94 10/11/20 14:30 80 26 H 158/89 10/11/20 14:20 82 149/87 10/11/20 14:16 82 21 149/87 10/11/20 14:00 86 23 146/84 10/11/20 13:46 83 26 H 143/83 10/11/20 13:30 84 26 H 136/88 10/11/20 13:15 82 24 141/82 10/11/20 13:00 82 24 143/81 10/11/20 12:45 85 22 143/77 10/11/20 12:30 85 27 H 149/88 10/11/20 12:22 85 143/87 10/11/20 12:15 80 23 135/75 10/11/20 12:00 98.4 F 80 81 22 137/79 10/11/20 11:45 80 20 136/80 10/11/20 11:30 81 22 136/78 10/11/20 11:15 77 23 138/81 10/11/20 11:00 76 24 151/84 10/11/20 10:45 78 19 156/84 10/11/20 10:30 83 24 150/87 10/11/20 10:15 85 30 H 143/87 10/11/20 10:00 85 31 H 153/84 10/11/20 09:45 83 28 H 156/81 10/11/20 09:30 81 27 H 150/81 10/11/20 09:15 86 22 153/84 10/11/20 09:00 82 26 H 157/78 10/11/20 08:45 83 26 H 144/81 10/11/20 08:30 86 28 H 153/83 10/11/20 08:15 90 27 H 142/79 10/11/20 08:11 91 H 30 H 10/11/20 08:01 94 H 177/85 10/11/20 08:00 100.5 F H 88 93 H 30 H 10/11/20 07:58 90 150/86 10/11/20 07:54 89 25 H Pulse Ox 10/12/20 06:00 99 10/12/20 05:45 97 10/12/20 05:30 98 10/12/20 05:15 97 10/12/20 05:00 97 10/12/20 04:45 96 10/12/20 04:30 97 10/12/20 04:24 100 10/12/20 04:15 97 10/12/20 04:00 96 10/12/20 03:45 98 10/12/20 03:30 96 10/12/20 03:15 97 10/12/20 03:00 97 10/12/20 02:45 98 10/12/20 02:30 97 10/12/20 02:15 96 10/12/20 02:00 99 10/12/20 01:45 96 10/12/20 01:30 96 10/12/20 01:15 96 10/12/20 01:00 96 10/12/20 00:45 96 10/12/20 00:32 10/12/20 00:30 97 10/12/20 00:15 96 10/12/20 00:03 100 10/12/20 00:00 99 10/11/20 23:45 95 10/11/20 23:30 97 10/11/20 23:15 96 10/11/20 23:01 100 10/11/20 23:00 96 10/11/20 22:59 100 10/11/20 22:45 98 10/11/20 22:30 97 10/11/20 22:15 99 10/11/20 22:00 96 12/27/20 21:45 95 10/11/20 21:30 95 10/11/20 21:15 96 10/11/20 21:00 95 10/11/20 20:45 95 10/11/20 20:37 10/11/20 20:31 100 10/11/20 20:30 95 10/11/20 20:15 97 10/11/20 20:00 100 10/11/20 19:45 97 10/11/20 19:30 95 10/11/20 19:15 95 10/11/20 19:00 95 10/11/20 18:45 96 10/11/20 18:30 97 10/11/20 18:15 96 10/11/20 18:00 96 10/11/20 17:45 95 10/11/20 17:30 95 10/11/20 17:15 96 10/11/20 17:00 97 10/11/20 16:45 96 10/11/20 16:30 97 10/11/20 16:28 10/11/20 16:15 96 10/11/20 16:00 100 10/11/20 15:45 98 10/11/20 15:41 99 10/11/20 15:30 97 10/11/20 15:16 97 10/11/20 15:00 96 10/11/20 14:45 94 10/11/20 14:30 93 10/11/20 14:20 10/11/20 14:16 96 10/11/20 14:00 96 10/11/20 13:46 95 10/11/20 13:30 94 10/11/20 13:15 93 10/11/20 13:00 93 10/11/20 12:45 95 10/11/20 12:30 98 10/11/20 12:22 98 10/11/20 12:15 94 10/11/20 12:00 98 10/11/20 11:45 94 10/11/20 11:30 94 10/11/20 11:15 93 10/11/20 11:00 96 10/11/20 10:45 93 10/11/20 10:30 93 10/11/20 10:15 10/11/20 10:00 93 10/11/20 09:45 93 10/11/20 09:30 92 12/27/20 09:15 93 10/11/20 09:00 92 10/11/20 08:45 90 10/11/20 08:30 92 10/11/20 08:15 92 10/11/20 08:11 10/11/20 08:01 98 10/11/20 08:00 93 10/11/20 07:58 10/11/20 07:54 97 Intake and Output 10/11/20 10/12/20 10/12/20 22:59 06:59 14:59 Intake Total 146.660 2381.141 Output Total 900 1100 Balance -93.014 715.141 Intake: IV 86.986 1095.141 D10w 1,000 ml @ 75 mls/hr 1000 IV DIRECT ERINN Rx#: [id number] dexmedeTOMIDine 400 MCG 86.986 95.141 In NaCl 0.9% 100 ml @ 0.2 MCG/KG/HR 7.249 mls/hr IV TITRATE ERINN Rx#: [id number] Intake, Free Water 200 200 Tube Feeding 520 520 Output: Gastric Drainage 0 Oral 0 Drainage 0 0 Left 0 0 Urine 900 1100 Indwelling Catheter 900 1100 Other: Total, Intake Amount 65 65 Total, Output Amount 150 350 Voiding Method Indwelling Catheter Indwelling Catheter # Bowel Movements 0 0 - Exam Abdomen: Present: normal appearance, soft. Absent: distention Incision: Present: other (dressing removed with serosang drainage. Will leave dressing off. Will attempt to remove tuan tomorrow if remains dry) - Labs Labs: Abnormal lab results 10/11/20 10/11/20 10/12/20 Range/Units 11:41 13:26 03:52 WBC (4.5-11.0) K/mm3 RBC (3.65-5.03) M/mm3 Hgb (10.1-14.3) gm/dl RDW (13.2-15.2) % Seg Neuts % (Manual) (40.0-70.0) % Lymphocytes % (Manual) (13.4-35.0) % Seg Neutrophils # Man (1.8-7.7) K/mm3 Lymphocytes # (Manual) (1.2-5.4) K/mm3 Sodium (137-145) mmol/L Potassium (3.6-5.0) mmol/L Chloride (98-107) mmol/L Carbon Dioxide (22-30) mmol/L BUN (7-17) mg/dL Glucose (65-100) mg/dL POC Glucose 116 H 114 H (70-105) mg/dL Calcium (8.4-10.2) mg/dL Urine WBC (Auto) 24.0 H (0.0-6.0) /HPF 10/12/20 10/12/20 10/12/20 Range/Units 04:24 Unknown Unknown WBC 24.3 H (4.5-11.0) K/mm3 RBC 3.38 L (3.65-5.03) M/mm3 Hgb 9.8 L (10.1-14.3) gm/dl RDW 18.7 H (13.2-15.2) % Seg Neuts % (Manual) 93.5 H (40.0-70.0) % Lymphocytes % (Manual) 4.5 L (13.4-35.0) % Seg Neutrophils # Man 22.7 H (1.8-7.7) K/mm3 Lymphocytes # (Manual) 1.1 L (1.2-5.4) K/mm3 Sodium 135 L D (137-145) mmol/L Potassium 3.1 L (3.6-5.0) mmol/L Chloride 109.9 H (98-107) mmol/L Carbon Dioxide 13 L 17 L (22-30) mmol/L BUN 18 H (7-17) mg/dL Glucose 119 H 510 H* (65-100) mg/dL POC Glucose (70-105) mg/dL Calcium 7.6 L 7.2 L (8.4-10.2) mg/dL Urine WBC (Auto) (0.0-6.0) /HPF
[2020-10-12] MEDS: SODIUM BICARBONATE 650 MG TAB PO SCH ×3 (08:21→19:09)
[2020-10-12] MEDS: busPIRone 5 MG TAB PO SCH ×2 (09:39→21:51)
[2020-10-12] MEDS: busPIRone 10 MG TAB PO SCH ×2 (09:39→21:51)
[2020-10-12] MEDS: TOPIRAMATE TAB 25 MG TAB PO SCH ×2 (09:39→21:54)
[2020-10-12] MEDS: FAMOTIDINE 20 MG TAB PO SCH ×2 (09:39→21:51)
--- NOTE | 2020-10-12 10:42 | Progress Note ---
Assessment and Plan Impression: * Nonoliguric acute kidney injury secondary to ischemic ATN * Acidosis * Cardiac arrest * Shock * Acute hypoxic respiratory failure * Acute encephalopathy * DIC * Anemia secondary to acute blood loss * hemorrhage * Mixed respiratory/metabolic acidosis * Presumed eclampsia * Hypokalemia * Hypocalcemia * Transaminitis * Covid PUI Plan: * Renal function is stable. There is no need for renal replacement therapy at this time * Start sodium bicarb tabs, co2 is better * replete k and mag prn * Follow potassium and replete prn to goal range 4 mmol/L * Transfusion of blood products per primary team and hematology * Pressors prn to maintain MAP>65 * Reviewed ID note * Reviewed OB note * Strict I/O * Vent management per pulmonary/CCM * Dose medications for renal function * Avoid potential nephrotoxins Subjective Date of service: 10/12/20 Principal diagnosis: Eclampsia/HELLP Syndrome, ADOLPH, DIC; s/p , s/p supracervical hyst Interval history: resting in bed today Objective - Exam Narrative Exam: Constitutional: comatose, other (critically ill on ventilator) Eyes: non-icteric ENT: oropharynx moist, other (orally intubated and not sedated) Neck: other (large in cirumference) Effort: normal Ascultation: Bilateral: clear Cardiovascular: regular rate and rhythm, other (no mrg) Gastrointestinal: normoactive bowel sounds, soft, other (post surgical changes with drain on the left side) Extremities: no cyanosis, pink and warm, anasarca Neurologic: other (unresponsive, not following commands, not tracking) Psychiatric: other (unable to assess) - Vital Signs Vital signs: Vital Signs - 12hr 10/11/20 10/11/20 10/11/20 22:45 22:59 23:00 Temperature Pulse Rate 78 76 75 Pulse Rate [ Anterior Bilateral Throughout] Pulse Rate [ From Monitor] Respiratory 26 H 26 H 25 H Rate Respiratory Rate [Anterior Bilateral Throughout] Blood Pressure 133/80 133/80 138/86 O2 Sat by Pulse 98 100 96 Oximetry 10/11/20 10/11/20 10/11/20 23:01 23:15 23:30 Temperature Pulse Rate 72 75 77 Pulse Rate [ Anterior Bilateral Throughout] Pulse Rate [ From Monitor] Respiratory 24 25 H 27 H Rate Respiratory Rate [Anterior Bilateral Throughout] Blood Pressure 138/86 136/85 139/88 O2 Sat by Pulse 100 96 97 Oximetry 10/11/20 10/12/20 10/12/20 23:45 00:00 00:03 Temperature 100.3 F H Pulse Rate 78 74 72 Pulse Rate [ Anterior Bilateral Throughout] Pulse Rate [ 76 From Monitor] Respiratory H 27 H Rate Respiratory Rate [Anterior Bilateral Throughout] Blood Pressure 136/85 140/86 140/86 O2 Sat by Pulse 95 99 100 Oximetry 10/12/20 10/12/20 10/12/20 00:15 00:30 00:32 Temperature Pulse Rate 78 78 Pulse Rate [ 74 Anterior Bilateral Throughout] Pulse Rate [ From Monitor] Respiratory 26 H 26 H Rate Respiratory 25 H Rate [Anterior Bilateral Throughout] Blood Pressure 132/89 138/85 O2 Sat by Pulse 96 97 Oximetry 10/12/20 10/12/20 10/12/20 00:45 01:00 01:15 Temperature Pulse Rate 76 79 79 Pulse Rate [ Anterior Bilateral Throughout] Pulse Rate [ From Monitor] Respiratory 25 H 26 H 26 H Rate Respiratory Rate [Anterior Bilateral Throughout] Blood Pressure 140/83 133/81 141/85 O2 Sat by Pulse 96 96 96 Oximetry 10/12/20 10/12/20 10/12/20 01:30 01:45 02:00 Temperature Pulse Rate 78 76 76 Pulse Rate [ Anterior Bilateral Throughout] Pulse Rate [ From Monitor] Respiratory 27 H 26 H 27 H Rate Respiratory Rate [Anterior Bilateral Throughout] Blood Pressure 139/87 136/83 138/86 O2 Sat by Pulse 96 96 99 Oximetry 10/12/20 10/12/20 10/12/20 02:15 02:30 02:45 Temperature Pulse Rate 76 78 76 Pulse Rate [ Anterior Bilateral Throughout] Pulse Rate [ From Monitor] Respiratory 28 H 28 H 27 H Rate Respiratory Rate [Anterior Bilateral Throughout] Blood Pressure 131/84 137/85 139/88 O2 Sat by Pulse 96 97 98 Oximetry 10/12/20 10/12/20 10/12/20 03:00 03:15 03:30 Temperature Pulse Rate 76 76 76 Pulse Rate [ Anterior Bilateral Throughout] Pulse Rate [ From Monitor] Respiratory 26 H 26 H 28 H Rate Respiratory Rate [Anterior Bilateral Throughout] Blood Pressure 139/82 139/84 145/87 O2 Sat by Pulse 97 97 96 Oximetry 10/12/20 10/12/20 10/12/20 03:45 04:00 04:15 Temperature 100.0 F H Pulse Rate 78 74 75 Pulse Rate [ Anterior Bilateral Throughout] Pulse Rate [ 75 From Monitor] Respiratory 27 H 27 H 26 H Rate Respiratory Rate [Anterior Bilateral Throughout] Blood Pressure 135/88 138/87 141/88 O2 Sat by Pulse 98 96 97 Oximetry 10/12/20 10/12/20 10/12/20 04:24 04:30 04:45 Temperature Pulse Rate 73 76 75 Pulse Rate [ Anterior Bilateral Throughout] Pulse Rate [ From Monitor] Respiratory 28 H 26 H Rate Respiratory Rate [Anterior Bilateral Throughout] Blood Pressure 141/88 137/86 137/86 O2 Sat by Pulse 100 97 96 Oximetry 10/12/20 10/12/20 10/12/20 05:00 05:15 05:30 Temperature Pulse Rate 75 74 72 Pulse Rate [ Anterior Bilateral Throughout] Pulse Rate [ From Monitor] Respiratory 26 H 26 H 25 H Rate Respiratory Rate [Anterior Bilateral Throughout] Blood Pressure 137/87 142/87 138/84 O2 Sat by Pulse 97 97 98 Oximetry 10/12/20 10/12/20 10/12/20 05:45 06:00 06:15 Temperature Pulse Rate 71 71 71 Pulse Rate [ Anterior Bilateral Throughout] Pulse Rate [ From Monitor] Respiratory 21 22 23 Rate Respiratory Rate [Anterior Bilateral Throughout] Blood Pressure 143/88 136/82 135/83 O2 Sat by Pulse 97 99 97 Oximetry 10/12/20 10/12/20 10/12/20 06:30 06:45 07:00 Temperature Pulse Rate 69 68 69 Pulse Rate [ Anterior Bilateral Throughout] Pulse Rate [ From Monitor] Respiratory 23 23 24 Rate Respiratory Rate [Anterior Bilateral Throughout] Blood Pressure 137/85 142/88 138/85 O2 Sat by Pulse 97 97 96 Oximetry 10/12/20 10/12/20 10/12/20 07:15 07:30 07:45 Temperature Pulse Rate 70 72 71 Pulse Rate [ Anterior Bilateral Throughout] Pulse Rate [ From Monitor] Respiratory 25 H 25 H 26 H Rate Respiratory Rate [Anterior Bilateral Throughout] Blood Pressure 134/82 140/89 134/84 O2 Sat by Pulse 97 98 97 Oximetry 10/12/20 10/12/20 10/12/20 07:53 08:00 08:15 Temperature 99.3 F Pulse Rate 67 70 69 Pulse Rate [ Anterior Bilateral Throughout] Pulse Rate [ 67 From Monitor] Respiratory 24 23 Rate Respiratory Rate [Anterior Bilateral Throughout] Blood Pressure 134/84 132/83 140/85 O2 Sat by Pulse 100 96 96 Oximetry 10/12/20 10/12/20 08:21 08:39 Temperature Pulse Rate 67 Pulse Rate [ 64 Anterior Bilateral Throughout] Pulse Rate [ From Monitor] Respiratory Rate Respiratory 22 Rate [Anterior Bilateral Throughout] Blood Pressure 140/85 O2 Sat by Pulse Oximetry - Lab 10/12/20 Unknown 10/12/20 Unknown Most recent lab results ABG pH 7.534 pH Units (7.350-7.450) H 10/10/20 04:42 ABG pCO2 25.0 mm Hg 10/10/20 04:42 ABG pO2 95.2 mm Hg (80.0-90.0) H 10/10/20 04:42 ABG HCO3 20.6 mmol/L (20.0-26.0) 10/10/20 04:42 ABG O2 Saturation 97.9 % (95.0-99.0) 10/10/20 04:42 Calcium 7.2 mg/dL (8.4-10.2) L 10/12/20 Unknown Phosphorus 3.40 mg/dL (2.5-4.5) D 10/11/20 04:00 Magnesium 1.60 mg/dL (1.7-2.3) L 10/11/20 04:00 Medications & Allergies - Medications Allergies/Adverse Reactions: Allergies egg Allergy (Severe, Verified 05/22/20 16:09) Anaphylaxis NSAIDS (Non-Steroidal Anti-Inflamma Allergy (Severe, Verified 05/22/20 16:09) Unknown pt c/o Palpitations, nervous, had to take benadryl Sulfa (Sulfonamide Antibiotics) Allergy (Severe, Verified 05/22/20 16:09) Anaphylaxis SWELING,NUMBNESS ibuprofen Allergy (Intermediate, Verified 05/22/20 16:09) Bleeding latex Allergy (Verified 05/22/20 16:09) Hives plecanatide [From Trulance] Allergy (Verified 05/22/20 16:09) Anaphylaxis adhesive tape Adverse Reaction (Intermediate, Verified 05/22/20 16:09) Unknown PAPER TAPE OK metoclopramide [From Reglan] Adverse Reaction (Verified 05/22/20 16:09) Unknown Home Medications: Home Medications Medication Instructions Recorded Confirmed Last Taken Type Pantoprazole [Protonix TAB] 20 mg PO DAILY 05/10/19 08/20/20 05/10/19 05:00 History busPIRone 15 mg PO DAILY 01/15/20 08/20/20 Unknown History Albuterol Sulfate [Proventil Hfa] 6.7 gm IH Q4HR PRN #1 hfa.aer.ad 04/07/20 08/20/20 Unknown Rx Topiramate (Nf) [Trokendi XR CAP] 100 mg PO DAILY 08/20/20 08/20/20 Unknown History oxyCODONE /ACETAMINOPHEN [Percocet 1 tab PO Q6HR 08/20/20 08/20/20 Unknown History 5/325 mg] Active Medications: Generic Name Dose Route Start Last Admin Trade Name Freq PRN Reason Stop Dose Admin Acetaminophen 650 mg 10/05/20 16:34 10/11/20 09:40 Acetaminophen 325 Mg/10.15 Ml Oral Liqd Unit Dose FEEDTUBE 650 mg Q6H PRN Administration Non Cardiac Pain or Temp>100.5 Albuterol/Ipratropium 1 ampul 10/10/20 20:00 10/12/20 08:39 Ipratropium/Albuterol Sulfate 3 Ml Ampul.Neb IH 1 ampul Q8HRT ERINN Administration Lipase/Protease/Amylase 1 each 10/05/20 11:09 Lipase 10,500/Protease 25,000/Amylase 43,750 (Units) Dr Barakat FEEDTUBE PRN PRN For Clogged Feeding Tube Buspirone HCl 10 mg 10/10/20 10:00 10/12/20 09:39 Buspirone 10 Mg Tab PO 10 mg BID ERINN Administration Buspirone HCl 5 mg 10/10/20 10:00 10/12/20 09:39 Buspirone 5 Mg Tab PO 5 mg BID ERINN Administration Famotidine 20 mg 10/07/20 10:00 10/12/20 09:39 Famotidine 20 Mg Tab PO 20 mg BID ERINN Administration Fentanyl 50 mcg 10/10/20 19:54 10/12/20 05:35 Fentanyl 100 Mcg/2 Ml Inj IV 50 mcg Q3HR PRN Administration Labored breathing Hydralazine HCl 20 mg 10/07/20 11:49 10/11/20 03:14 Hydralazine 20 Mg/1 Ml Inj IV 20 mg Q6H PRN Administration SBP >170 Hydrophilic Ointment 1 applic 10/04/20 06:55 Lip Therapy Vaseline TP Q2HR PRN Dry Lips Dextrose 1,000 mls @ 75 mls/hr 10/04/20 18:50 10/11/20 23:06 D10w IV 75 mls/hr DIRECT ERINN Administration Dexmedetomidine HCl 400 mcg/ 104 mls @ 7.249 mls/hr 10/08/20 10:00 10/12/20 10:01 Sodium Chloride IV 0.5 mcg/kg/hr TITRATE ERINN 18.122 mls/hr Administration Protocol 0.2 MCG/KG/HR Potassium Chloride 10 meq in 100 mls @ 100 mls/hr 10/12/20 11:00 Kcl 10meq/100ml IV 10/12/20 12:59 Q1H ERINN Magnesium Sulfate 2 gm in 50 mls @ 25 mls/hr 10/12/20 10:39 Magnesium Sulfate 2gm/50ml IV 10/12/20 12:38 ONCE ONE Labetalol HCl 100 mg 10/07/20 14:00 10/12/20 08:21 Labetalol 100 Mg Tab PO 100 mg TID ERINN Administration Lorazepam 2 mg 10/02/20 22:05 10/10/20 16:56 Lorazepam 2 Mg/Ml Vial IV 2 mg Q2H PRN Administration Seizures Multi-Ingred Cream/Lotion/Oil/Oint 1 applic 10/04/20 06:55 Mineral Oil/Petrolatum, White Ophth Oint 3.5 Gm OU Q4HR PRN Dry Eye(s) Potassium Chloride 40 meq 10/12/20 11:00 Potassium Chloride 20 Meq Packet FEEDTUBE 10/12/20 15:01 Q4H ERINN Simple Syrup 15 ml 10/05/20 11:09 Simple Syrup 15 Ml FEEDTUBE PRN PRN Hypoglycemia Simple Syrup 30 ml 10/05/20 11:09 Simple Syrup 15 Ml FEEDTUBE PRN PRN Hypoglycemia Sodium Bicarbonate 325 mg 10/05/20 11:09 Sodium Bicarbonate 325 Mg Tab FEEDTUBE PRN PRN For Clogged Feeding Tube Sodium Bicarbonate 1,300 mg 10/11/20 20:00 10/12/20 08:21 Sodium Bicarbonate 650 Mg Tab PO 1,300 mg TIDWM ERINN Administration Topiramate 50 mg 10/05/20 11:00 10/12/20 09:39 Topiramate Tab 25 Mg Tab PO 50 mg Q12HR ERINN Administration Vancomycin HCl 125 mg 10/11/20 14:00 10/12/20 08:21 Vancomycin 250 Mg/10 Ml Oral Liqd PO 10/18/20 20:01 125 mg Q6H ERINN Administration Protocol
[2020-10-12] MEDS ORDERED: POTASSIUM CHLORIDE 20 MEQ PACKET FEEDTUBE ONE (11:00)
[2020-10-12] MEDS ORDERED: POTASSIUM CHLORIDE 20 MEQ PACKET FEEDTUBE SCH (11:00)
[2020-10-12] MEDS: POTASSIUM CHLORIDE 10 MEQ 10 MEQ/100 ML BAG IV SCH ×2 (11:01→11:58)
[2020-10-12] MEDS: DEXTROSE 10% IN WATER 1,000 ML IV SCH (11:59)
--- NOTE | 2020-10-12 12:04 | Progress Note ---
Assessment and Plan Cultures: 10/05/2020 Blood culture: no growth 10/11/2020 blood culture: No growth A/P: 30-year-old female with GERD, hypertension, seizure disorder was admitted to the hospital at 36 weeks with seizures. She became hypoxic and pulseless requiring CPR. Following emergent section, patient developed hemorrhage, DIC. She has been admitted to ICU, remains on the vent: #Status post cardiac arrest 10/07/2020: Apparently had a brief code due to ?ET tube clot/plugging #Shock, DIC/persistent fever: Secondary to hemorrhage, ?possible sepsis. Possible pneumonia versus fluid overload. ? Central fever. Noted diarrhea ? Cdiff #Acute kidney injury: renally dose abx. Improving. #Acute respiratory failure: remains on the vent. #Transaminitis: ?HELLP. Improving. #Preeclampsia # hemorrhage: Status post , status post supracervical hysterectomy. #Encephalopathy post cardiac arrest ? Anoxic brain injury Recs: -Completed cefepime course on 10/09/2020 -Continue vancomycin p.o. empirically for C. difficile total 10 days, given diarrhea and leukocytosis -Neurology evaluation pending -consider DVT evaluation, possible cause of low grade fevers -poor prognosis Venancio Craven MD, FACP [facility] ([facility] O: [phone] F: [phone] Subjective Date of service: 10/12/20 Principal diagnosis: Eclampsia/HELLP Syndrome, ADOLPH, DIC; s/p , s/p supracervical hyst Interval history: Remains on the vent. Low-grade fever present. Objective - Exam Narrative Exam: Physical Exam: Constitutional: sedated, intubated, on the vent Head, Ears, Nose: Normocephalic, atraumatic. External ears, nose normal Eyes: Conjunctivae/corneas clear. No icterus. No ptosis. Neck: intubated Oral: intubated Cardiovascular: S1, S2 + Respiratory: AE fair bilaterally and equal GI: Soft, bowel sounds hypoactive, lower abdominal incision present with dressing, right subclavian central line present Musculoskeletal: No pedal edema, no cyanosis. Skin: No rash or abscess Hem/Lymphatic: No palpable cervical or supraclavicular nodes. No lymphangitis Psych: no agitation Neurological: sedated, intubated, on the vent, exam limited - Constitutional Vitals: Vital Signs Temp Pulse Resp BP Pulse Ox 99.3 F 68 22 133/88 100 10/12/20 08:00 10/12/20 11:50 10/12/20 08:39 10/12/20 11:50 10/12/20 11:50 Temperature -Last 24 Hours Temperature 99.3 F Temperature 100.0 F Temperature 100.3 F Temperature 100.3 F Temperature 99.8 F - Labs CBC & Chem 7: 10/12/20 Unknown 10/12/20 Unknown Labs: Abnormal lab results 10/11/20 10/12/20 10/12/20 Range/Units 13:26 03:52 04:24 WBC (4.5-11.0) K/mm3 RBC (3.65-5.03) M/mm3 Hgb (10.1-14.3) gm/dl RDW (13.2-15.2) % Seg Neuts % (Manual) (40.0-70.0) % Lymphocytes % (Manual) (13.4-35.0) % Seg Neutrophils # Man (1.8-7.7) K/mm3 Lymphocytes # (Manual) (1.2-5.4) K/mm3 Sodium (137-145) mmol/L Potassium (3.6-5.0) mmol/L Chloride 109.9 H (98-107) mmol/L Carbon Dioxide 13 L (22-30) mmol/L BUN 18 H (7-17) mg/dL Glucose 119 H (65-100) mg/dL POC Glucose 114 H (70-105) mg/dL Calcium 7.6 L (8.4-10.2) mg/dL Urine WBC (Auto) 24.0 H (0.0-6.0) /HPF 10/12/20 10/12/20 Range/Units Unknown Unknown WBC 24.3 H (4.5-11.0) K/mm3 RBC 3.38 L (3.65-5.03) M/mm3 Hgb 9.8 L (10.1-14.3) gm/dl RDW 18.7 H (13.2-15.2) % Seg Neuts % (Manual) 93.5 H (40.0-70.0) % Lymphocytes % (Manual) 4.5 L (13.4-35.0) % Seg Neutrophils # Man 22.7 H (1.8-7.7) K/mm3 Lymphocytes # (Manual) 1.1 L (1.2-5.4) K/mm3 Sodium 135 L D (137-145) mmol/L Potassium 3.1 L (3.6-5.0) mmol/L Chloride (98-107) mmol/L Carbon Dioxide 17 L (22-30) mmol/L BUN (7-17) mg/dL Glucose 510 H* (65-100) mg/dL POC Glucose (70-105) mg/dL Calcium 7.2 L (8.4-10.2) mg/dL Urine WBC (Auto) (0.0-6.0) /HPF
[2020-10-12] MEDS: SODIUM CHLORIDE 0.45% 1000 ML 1,000 ML IV SCH ×2 (14:02→21:55)
[2020-10-12] MEDS: INSULIN REGULAR, HUMAN 100 UNIT/ML 3ML VIAL SUB-Q SCH ×3 (14:07→21:51)
--- NOTE | 2020-10-12 14:31 | Progress Note ---
Assessment and Plan -- Sepsis with presumed Pneumonia Teated with iv abx, follow Cx -Completed cefepime course 5 days on 10/09/2020 -Check MRSA culture -Start vancomycin p.o. empirically for C. difficile total 10 days, given diarrhea and worsening leukocytosis, --Acute respiratory failure with hypoxia Patient intubated Vent management per CC --DIC (disseminated intravascular coagulation) vs HELLP syndrome Has anemia,thrombocytopenia and elevated liver enzymes Patient received multiple units of RBCs, FFP's, cryo Hematology/oncology recommendations appreciated Continue to trend fibrinogen and INR Critical care on board --Possible Eclampsia/HELLP Syndrome Patient presented with seizure-->hypoxia-->urgent C section-->hysterectomy for severe bleeding/DIC developed severe anemia-->received RBC, plt, FFP, cryo was on max pressors-->now off pressors still on vent, on sedation Hematology following --s/p Cardiac arrest x2 on admission and on 10/07 ACLS protocol followed by revival Echo showed preserved Ef --Shock s/p pressor support Likely hypovolemic. on empirical antibiotics for possible sepsis. Continue to monitor blood pressure closely Trend H&H and transfuse as needed --Lactic acidosis As a result of poor organ perfusion and possible sepsis Continue IV hydration. Lactic acid is trending down Nephrology on board --ADOLPH As a result of hypoperfusion and shock Continue IV hydration Cr stable, follow BMP --DVT prophylaxis Patient presented with DIC No anticoagulants The high probability of a clinically significant, sudden or life threatening deterioration of the [pulmonary] system(s) required my full and direct attention, intervention and personal management. The aggregate critical care time was [35] minutes. This time is in addition to time spent performing reported procedures but includes the following: [x] Data Review and interpretation [x] Patient assessment and monitoring of vital signs [x] Documentation [x] Medication orders and management brief History 30 year old -[place] female CHE 10/25/20 at 36w5d who presents with seizures in triage on 10/02/20. Pt was not able to provide history but per pt's , she presented to the hospital to return a 24 hour urine specimen for analysis. She then suddenly reported that she did not feel good. She was taken to labor and delivery and shortly after arrival, she began seizing. During this time, a code met was called because the patient became hypoxic. She was then noted to be without a pulse. Chest compressions were started immediately, and the patient was emergently taken to the operating room for delivery of the fetus. Off note, This patient has had care at [facility] with comanagement by [facility] since 11 wks complicated by ADHD, morbid obesity, generalized anxiety disorder, panic attacks, chronic narcotic use, fibromyalgia, GERD, Irritable Bowel Syndrome, Migraines, h/o endometrial ablation and ovarian vein embolization, genital herpes, insomnia, LGA fetus, nausea and vomiting, polyhydramnios, quad screen positive for Down's Syndrome, and previous x 3. She is GBS negative. 11:30: Pt brought to L&D triage for evaluation of possible labor. Pt accompanied by her spouse. Pt spouse poor historian; unable to obtain history- allergies at this time. Pt taken from registration to triage area via WC. Pt unresponsive, actively seizing with snorous respirations. creative lead, Kassy, called and requesting assistance. 11:35: Multiple staff at bedside. Pt 02 sat 67% on nonrebreather, unable to read BP at this time. Yifan Theodore CRNA, at bedside for intubation and assistance with IV insertion. INT attempt by multiple RNs unsuccessful at this time. 11:42: Pt being bagged by KORIN, 02% 79%. No pulse palpated, compressions started at this time; bharati oyung called and Dr. Newberry preparing OR for emergent c/s. 11:44: Continued compressions on stretcher while transporting pt to OR 1. Pt being bagged with jaw thrust manuever in place by KORIN Stringer student. 11:45: Arrival to OR 1. Dr. Newberry and Dr. Portillo present for emergent c/s. Code team arrived for continued care. patient revived and c/s done Patient has been bleeding from C/s site followed by supracervical hysterectomy for severe bleeding Patient transfused multiple units of PRBC, Patient in DIC. Transferred to the ICU 10/03. Patient seen and examined at bedside this morning. Patient is nonresponsive and mechanically ventilated. On pressors. Labs reviewed-has leukocytosis, anemia, thrombocytopenia, ADOLPH and lactic acidosis. Started on IV antibiotics to cover possible sepsis secondary to DIC. Hematology oncology recommendations appreciated-needs additional cryoprecipitate and FFP. Monitor D-dimer, fibrinogen and frequent labs. Nephrology consulted for lactic acidosis and ADOLPH. 10/04. Remains mechanically ventilated. Kevin antibiotics. Labs shows improved acidosis - lactic acid 3.5. Hb drop noted. Getting transfused 2 units PRBCs. Platelet count is ~40k. Continue to monitor labs closely. Critical care team on board. 10/05; xray reviewed, concerning for multifocal infilrate, likely underlying Pneumonia, will add ID consult to assist with management of this critically ill patient, start tube feed, closely monitor renal system 10/06: Resumed care, remains on mechanical ventilation. No active bleeding, H&H stable. Continue to monitor CBC and BMP. Continue IV antibiotic for underlying pneumonia. Follow critical care and ID recommendation. 10/07: Remains on mechanical ventilation. No active bleeding, H&H stable. Critical care following, wean off ventilation as tolerated. 10/08: Patient had another cardiac arrest last night. Remains on mechanical ventilation, update family. Continue supportive care -poor prognosis 10/09: Called patient mother and discussed about patient care and management. Answered all question to best of my knowledge and family satisfaction. Patient remains on mechanical ventilation, cardiac arrest x2 so far. Critically sick, poor prognosis 10/10: remains on mechanical ventilation. h/h stable, no active bleeding. monitor CBC/BMP 10/11: WBC trended up with diarrhea, started on vancomycin po. remains on MV, off pressor, tolerating TF 10/12: remains on MV, off pressor, tolerating TF. called family for update but unable to reach, could not leave message as it was full. cont supportive care, wean off vent as tolerated. Subjective Date of service: 10/12/20 Principal diagnosis: Eclampsia/HELLP Syndrome, ADOLPH, DIC; s/p , s/p supracervical hyst Interval history: Patient seen and examined Remains intubated No active bleeding H&H stable Discussed with RN at the bedside Objective - Exam Narrative Exam: vITAL SIGNS: Reviewed. GENERAL: Intubated HEAD: No signs of head trauma. EYES: Pupils are equal. MOUTH: OT in place NECK: No adenopathy, no JVD. CHEST: Rales posteriorly CARDIAC: normal S1 and S2, without murmurs, gallops, or rubs. ABDOMEN: Soft, non tender and non distended. surgical wound in tact, No rebound or guarding, and no masses palpated. Bowel Sounds normal. AVINASH drain intact MUSCULOSKELETAL: No edema NEUROLOGIC EXAM: Intubated SKIN: No obvious lesions - Constitutional Vitals: Vital Signs - 12hr 10/12/20 10/12/20 10/12/20 02:45 03:00 03:15 Temperature Pulse Rate 76 76 76 Pulse Rate [ Anterior Bilateral Throughout] Pulse Rate [ From Monitor] Respiratory 27 H 26 H 26 H Rate Respiratory Rate [Anterior Bilateral Throughout] Blood Pressure 139/88 139/82 139/84 O2 Sat by Pulse 98 97 97 Oximetry 10/12/20 10/12/20 10/12/20 03:30 03:45 04:00 Temperature 100.0 F H Pulse Rate 76 78 74 Pulse Rate [ Anterior Bilateral Throughout] Pulse Rate [ 75 From Monitor] Respiratory 28 H 27 H 27 H Rate Respiratory Rate [Anterior Bilateral Throughout] Blood Pressure 145/87 135/88 138/87 O2 Sat by Pulse 96 98 96 Oximetry 10/12/20 10/12/20 10/12/20 04:15 04:24 04:30 Temperature Pulse Rate 75 73 76 Pulse Rate [ Anterior Bilateral Throughout] Pulse Rate [ From Monitor] Respiratory 26 H 28 H Rate Respiratory Rate [Anterior Bilateral Throughout] Blood Pressure 141/88 141/88 137/86 O2 Sat by Pulse 97 100 97 Oximetry 10/12/20 10/12/20 10/12/20 04:45 05:00 05:15 Temperature Pulse Rate 75 75 74 Pulse Rate [ Anterior Bilateral Throughout] Pulse Rate [ From Monitor] Respiratory 26 H 26 H 26 H Rate Respiratory Rate [Anterior Bilateral Throughout] Blood Pressure 137/86 137/87 142/87 O2 Sat by Pulse 96 97 97 Oximetry 10/12/20 10/12/20 10/12/20 05:30 05:45 06:00 Temperature Pulse Rate 72 71 71 Pulse Rate [ Anterior Bilateral Throughout] Pulse Rate [ From Monitor] Respiratory 25 H 21 22 Rate Respiratory Rate [Anterior Bilateral Throughout] Blood Pressure 138/84 143/88 136/82 O2 Sat by Pulse 98 97 99 Oximetry 10/12/20 10/12/20 10/12/20 06:15 06:30 06:45 Temperature Pulse Rate 71 69 68 Pulse Rate [ Anterior Bilateral Throughout] Pulse Rate [ From Monitor] Respiratory 23 23 23 Rate Respiratory Rate [Anterior Bilateral Throughout] Blood Pressure 135/83 137/85 142/88 O2 Sat by Pulse 97 97 97 Oximetry 10/12/20 10/12/20 10/12/20 07:00 07:15 07:30 Temperature Pulse Rate 69 70 72 Pulse Rate [ Anterior Bilateral Throughout] Pulse Rate [ From Monitor] Respiratory 24 25 H 25 H Rate Respiratory Rate [Anterior Bilateral Throughout] Blood Pressure 138/85 134/82 140/89 O2 Sat by Pulse 96 97 98 Oximetry 10/12/20 10/12/20 10/12/20 07:45 07:53 08:00 Temperature 99.3 F Pulse Rate 71 67 70 Pulse Rate [ Anterior Bilateral Throughout] Pulse Rate [ 67 From Monitor] Respiratory 26 H 24 Rate Respiratory Rate [Anterior Bilateral Throughout] Blood Pressure 134/84 134/84 132/83 O2 Sat by Pulse 97 100 96 Oximetry 10/12/20 10/12/20 10/12/20 08:15 08:21 08:30 Temperature Pulse Rate 69 67 71 Pulse Rate [ Anterior Bilateral Throughout] Pulse Rate [ From Monitor] Respiratory 23 23 Rate Respiratory Rate [Anterior Bilateral Throughout] Blood Pressure 140/85 140/85 141/83 O2 Sat by Pulse 96 98 Oximetry 10/12/20 10/12/20 10/12/20 08:39 08:45 09:00 Temperature Pulse Rate 67 67 Pulse Rate [ 64 Anterior Bilateral Throughout] Pulse Rate [ From Monitor] Respiratory 23 24 Rate Respiratory 22 Rate [Anterior Bilateral Throughout] Blood Pressure 146/89 144/91 O2 Sat by Pulse 97 98 Oximetry 10/12/20 10/12/20 10/12/20 09:15 09:30 09:45 Temperature Pulse Rate 64 66 67 Pulse Rate [ Anterior Bilateral Throughout] Pulse Rate [ From Monitor] Respiratory 25 H 24 25 H Rate Respiratory Rate [Anterior Bilateral Throughout] Blood Pressure 145/91 145/92 137/90 O2 Sat by Pulse 96 96 96 Oximetry 10/12/20 10/12/20 10/12/20 10:00 10:16 10:30 Temperature Pulse Rate 71 101 H 67 Pulse Rate [ Anterior Bilateral Throughout] Pulse Rate [ From Monitor] Respiratory 25 H 42 H 22 Rate Respiratory Rate [Anterior Bilateral Throughout] Blood Pressure 142/82 178/85 148/73 O2 Sat by Pulse 97 100 98 Oximetry 10/12/20 10/12/20 10/12/20 10:45 11:00 11:15 Temperature Pulse Rate 68 71 67 Pulse Rate [ Anterior Bilateral Throughout] Pulse Rate [ From Monitor] Respiratory 22 23 22 Rate Respiratory Rate [Anterior Bilateral Throughout] Blood Pressure 141/81 137/87 137/86 O2 Sat by Pulse 96 97 97 Oximetry 10/12/20 10/12/20 10/12/20 11:30 11:45 11:50 Temperature Pulse Rate 86 70 68 Pulse Rate [ Anterior Bilateral Throughout] Pulse Rate [ From Monitor] Respiratory 26 H 23 Rate Respiratory Rate [Anterior Bilateral Throughout] Blood Pressure 138/90 133/88 133/88 O2 Sat by Pulse 99 98 100 Oximetry 10/12/20 10/12/20 10/12/20 12:00 12:15 14:01 Temperature Pulse Rate 71 68 71 Pulse Rate [ Anterior Bilateral Throughout] Pulse Rate [ From Monitor] Respiratory 24 25 H Rate Respiratory Rate [Anterior Bilateral Throughout] Blood Pressure 133/88 137/89 142/85 O2 Sat by Pulse 100 98 Oximetry - Labs CBC & Chem 7: 10/12/20 Unknown 10/12/20 Unknown Labs: Abnormal lab results 10/11/20 10/12/20 10/12/20 Range/Units 13:26 03:52 04:24 WBC (4.5-11.0) K/mm3 RBC (3.65-5.03) M/mm3 Hgb (10.1-14.3) gm/dl RDW (13.2-15.2) % Seg Neuts % (Manual) (40.0-70.0) % Lymphocytes % (Manual) (13.4-35.0) % Seg Neutrophils # Man (1.8-7.7) K/mm3 Lymphocytes # (Manual) (1.2-5.4) K/mm3 Sodium (137-145) mmol/L Potassium (3.6-5.0) mmol/L Chloride 109.9 H (98-107) mmol/L Carbon Dioxide 13 L (22-30) mmol/L BUN 18 H (7-17) mg/dL Glucose 119 H (65-100) mg/dL POC Glucose 114 H (70-105) mg/dL Calcium 7.6 L (8.4-10.2) mg/dL Urine WBC (Auto) 24.0 H (0.0-6.0) /HPF 10/12/20 10/12/20 Range/Units Unknown Unknown WBC 24.3 H (4.5-11.0) K/mm3 RBC 3.38 L (3.65-5.03) M/mm3 Hgb 9.8 L (10.1-14.3) gm/dl RDW 18.7 H (13.2-15.2) % Seg Neuts % (Manual) 93.5 H (40.0-70.0) % Lymphocytes % (Manual) 4.5 L (13.4-35.0) % Seg Neutrophils # Man 22.7 H (1.8-7.7) K/mm3 Lymphocytes # (Manual) 1.1 L (1.2-5.4) K/mm3 Sodium 135 L D (137-145) mmol/L Potassium 3.1 L (3.6-5.0) mmol/L Chloride (98-107) mmol/L Carbon Dioxide 17 L (22-30) mmol/L BUN (7-17) mg/dL Glucose 510 H* (65-100) mg/dL POC Glucose (70-105) mg/dL Calcium 7.2 L (8.4-10.2) mg/dL Urine WBC (Auto) (0.0-6.0) /HPF HEART Score - HEART Score Age: < 45 Risk factors: 1-2 risk factors - Critical Actions Critical Actions: >7 pts:50-65% risk of adverse cardiac event. Early invasive measures
--- NOTE | 2020-10-12 16:38 | Consultation ---
History of Present Illness Consult date: 10/12/20 Reason for Consult: Unresponsive s/p seizure and arrest Chief complaint: Unresponsive History of present illness: Source: EMR, RN, patient 30 yo female (emergent during this admission), ADHD, morbid obesity, generalized anxiety disorder, panic attacks, chronic narcotic use, fibromyalgia, GERD, Irritable Bowel Syndrome, Migraines, h/o endometrial ablation and ovarian vein embolization, genital herpes, insomnia, LGA fetus, nausea and vomiting, polyhydramnios,n, gerd, who presents s/p seizure w/ cardiac arrest (10 days ago) in the setting of eclampsia. Noted to be in DIC and with sepsis. Noted with acute encephalopathy since the event with an EEG revealing diffuse slowing. Per RN, the eyes are noted to be deviated to the left since her shift. Past History Past Medical History: GERD, hypertension, seizures, other (IBD, MIGRAINES, Anxiety, Genital Herpes, Obesity) Past Surgical History: Social history: , full code Family history: hypertension Medications and Allergies Allergies Allergy/AdvReac Type Severity Reaction Status Date / Time egg Allergy Severe Anaphylaxis Verified 05/22/20 16:09 NSAIDS (Non-Steroidal Allergy Severe Unknown Verified 05/22/20 16:09 Anti-Inflamma Sulfa (Sulfonamide Allergy Severe Anaphylaxis Verified 05/22/20 16:09 Antibiotics) ibuprofen Allergy Intermediate Bleeding Verified 05/22/20 16:09 latex Allergy Hives Verified 05/22/20 16:09 plecanatide [From Trulance] Allergy Anaphylaxis Verified 05/22/20 16:09 adhesive tape AdvReac Intermediate Unknown Verified 05/22/20 16:09 metoclopramide [From Reglan] AdvReac Unknown Verified 05/22/20 16:09 Home Medications Medication Instructions Recorded Confirmed Last Taken Type Pantoprazole [Protonix TAB] 20 mg PO DAILY 05/10/19 08/20/20 05/10/19 05:00 History busPIRone 15 mg PO DAILY 01/15/20 08/20/20 Unknown History Albuterol Sulfate [Proventil Hfa] 6.7 gm IH Q4HR PRN #1 [email or web address] 04/07/20 08/20/20 Unknown Rx Topiramate (Nf) [Trokendi XR CAP] 100 mg PO DAILY 11/05/20 11/05/20 Unknown History oxyCODONE /ACETAMINOPHEN [Percocet 1 tab PO Q6HR 08/20/20 08/20/20 Unknown History 5/325 mg] Active Meds: Active Medications Acetaminophen (Acetaminophen 325 Mg/10.15 Ml Oral Liqd Unit Dose) 650 mg FEEDTUBE Q6H PRN PRN Reason: Non Cardiac Pain or Temp>100.5 Last Admin: 10/11/20 09:40 Dose: 650 mg Documented by: Albuterol/Ipratropium (Ipratropium/Albuterol Sulfate 3 Ml Ampul.Neb) 1 ampul IH Q8HRT [facility] Last Admin: 10/12/20 16:02 Dose: 1 ampul Documented by: Lipase/Protease/Amylase (Lipase 10,500/Protease 25,000/Amylase 43,750 (Units) Dr Barakat) 1 each FEEDTUBE PRN PRN PRN Reason: For Clogged Feeding Tube Buspirone HCl (Buspirone 10 Mg Tab) 10 mg PO BID [facility] Last Admin: 10/12/20 09:39 Dose: 10 mg Documented by: Buspirone HCl (Buspirone 5 Mg Tab) 5 mg PO BID [facility] Last Admin: 10/12/20 09:39 Dose: 5 mg Documented by: Famotidine (Famotidine 20 Mg Tab) 20 mg PO BID [facility] Last Admin: 10/12/20 09:39 Dose: 20 mg Documented by: Fentanyl (Fentanyl 100 Mcg/2 Ml Inj) 50 mcg IV Q3HR PRN PRN Reason: Labored breathing Last Admin: 10/12/20 05:35 Dose: 50 mcg Documented by: Hydralazine HCl (Hydralazine 20 Mg/1 Ml Inj) 20 mg IV Q6H PRN PRN Reason: SBP >170 Last Admin: 10/11/20 03:14 Dose: 20 mg Documented by: Hydrophilic Ointment (Lip Therapy Vaseline) 1 applic TP Q2HR PRN PRN Reason: Dry Lips Dexmedetomidine HCl 400 mcg/ (Sodium Chloride) 104 mls @ 7.249 mls/hr IV TITRATE [facility]; Protocol Last Admin: 10/12/20 14:11 Dose: 0.5 mcg/kg/hr, 18.122 mls/hr Documented by: Magnesium Sulfate (Magnesium Sulfate 2gm/50ml) 2 gm in 50 mls @ 25 mls/hr IV ONCE ONE Stop: 10/12/20 18:59 Sodium Chloride (Nacl 0.45% 1000 Ml) 1,000 mls @ 125 mls/hr IV DIRECT [facility] Last Admin: 10/12/20 14:02 Dose: 125 mls/hr Documented by: Insulin Human Regular (Insulin Regular, Human 100 Unit/Ml 3ml Vial) 0 unit SUB- Q Q4H [facility]; Protocol Last Admin: 10/12/20 14:07 Dose: Not Given Documented by: Labetalol HCl (Labetalol 100 Mg Tab) 100 mg PO TID [facility] Last Admin: 10/12/20 14:01 Dose: 100 mg Documented by: Lorazepam (Lorazepam 2 Mg/Ml Vial) 2 mg IV Q2H PRN PRN Reason: Seizures Last Admin: 10/10/20 16:56 Dose: 2 mg Documented by: Multi-Ingred Cream/Lotion/Oil/Oint (Mineral Oil/Petrolatum, White Ophth Oint 3.5 Gm) 1 applic OU Q4HR PRN PRN Reason: Dry Eye(s) Simple Syrup (Simple Syrup 15 Ml) 15 ml FEEDTUBE PRN PRN PRN Reason: Hypoglycemia Simple Syrup (Simple Syrup 15 Ml) 30 ml FEEDTUBE PRN PRN PRN Reason: Hypoglycemia Sodium Bicarbonate (Sodium Bicarbonate 325 Mg Tab) 325 mg FEEDTUBE PRN PRN PRN Reason: For Clogged Feeding Tube Sodium Bicarbonate (Sodium Bicarbonate 650 Mg Tab) 1,300 mg PO TIDWM [facility] Last Admin: 10/12/20 11:59 Dose: 1,300 mg Documented by: Topiramate (Topiramate Tab 25 Mg Tab) 50 mg PO Q12HR [facility] Last Admin: 10/12/20 09:39 Dose: 50 mg Documented by: Vancomycin HCl (Vancomycin 250 Mg/10 Ml Oral Liqd) 125 mg PO Q6H [facility]; Protocol Stop: 10/18/20 20:01 Last Admin: 10/12/20 14:01 Dose: 125 mg Documented by: Review of Systems ROS unobtainable: due to mental status Physical Examination - Vital Signs Vital Signs: Vital Signs Pulse Pulse Ox 75 98 10/02/20 11:36 10/02/20 11:36 - Physical Exam Narrative exam: Gen: nad, well-nourished, intubated; Head: normocephalic; Eyes: left gaze deviation; no ptosis appreciated; ENT: +ETT; CVS: warm and well-perfused; Pulm: no respiratory distress; GI: non-distended, protuberant; Ext: no cyanosis at distal extremities; Skin: no acute rash at distal extremities; Heme: no bruising or ecchymosis at distal extremities; Neuro: comatose, intubated, CN 2 - sluggish reactive pupils, CN 3, 4, 6 - eyes deviated (vs. preference) to the left and/or, CN 5/7 - corneal reflex intact, CN 9/10 - +cough reflex, CN 11/12 - pt cannot cooperate secondary to LOC; Motor/Sensory - 0/5 in all exts to tactile stimuli; Cerebellar/Gait - pt cannot cooperate secondary to LOC; NIHSS>28; Results - Laboratory Findings CBC and BMP: 10/12/20 Unknown 10/12/20 Unknown Abnormal Lab Findings: Abnormal Labs 10/02/20 10/02/20 10/02/20 12:03 12:18 12:18 WBC 14.9 H RBC Hgb 9.1 L Hct MCV MCH 22 L MCHC 28 L RDW 17.6 H Plt Count 102 L Lymph % (Auto) Bureau % (Auto) Lymph # (Auto) Bureau # (Auto) Seg Neutrophils % Seg Neuts % (Manual) 36.0 L Lymphocytes % (Manual) 49.0 H Monocytes % (Manual) Nucleated RBC % 6.0 H Seg Neutrophils # Seg Neutrophils # Man Lymphocytes # (Manual) 7.3 H Monocytes # (Manual) PT INR APTT Fibrinogen D-Dimer ABG pH POC ABG pCO2 POC ABG pO2 ABG pO2 ABG HCO3 ABG Base Excess ABG Hemoglobin ABG Oxyhemoglobin ABG Sodium ABG Potassium ABG Chloride ABG Glucose VBG pH Oxyhemoglobin Carboxyhemoglobin Sodium 134 L Potassium Chloride Carbon Dioxide 12 L BUN 6 L Creatinine Glucose 390 H POC Glucose 451 H Lactic Acid Calcium Ionized Calcium Magnesium AST 135 H ALT 85 H Alkaline Phosphatase 172 H Lactate Dehydrogenase 641 H NT-Pro-B Natriuret Pep Total Protein 5.4 L Albumin 2.3 L Arterial Blood Glucose Arterial Blood Ionized Calcium Urine WBC (Auto) Crossmatch 10/02/20 10/02/20 10/02/20 12:50 13:05 13:05 WBC 38.6 H RBC Hgb 8.9 L Hct 29.0 L MCV 73 L MCH 22 L MCHC RDW 17.2 H Plt Count Lymph % (Auto) Bureau % (Auto) Lymph # (Auto) Bureau # (Auto) Seg Neutrophils % Seg Neuts % (Manual) Lymphocytes % (Manual) Monocytes % (Manual) Nucleated RBC % 2.0 H Seg Neutrophils # Seg Neutrophils # Man 20.1 H Lymphocytes # (Manual) 10.4 H Monocytes # (Manual) 2.3 H PT INR APTT Fibrinogen D-Dimer ABG pH POC ABG pCO2 POC ABG pO2 ABG pO2 ABG HCO3 ABG Base Excess ABG Hemoglobin ABG Oxyhemoglobin ABG Sodium ABG Potassium ABG Chloride ABG Glucose VBG pH Oxyhemoglobin Carboxyhemoglobin Sodium Potassium Chloride Carbon Dioxide BUN Creatinine Glucose POC Glucose Lactic Acid Calcium Ionized Calcium Magnesium AST 184 H ALT 113 H Alkaline Phosphatase Lactate Dehydrogenase 769 H NT-Pro-B Natriuret Pep Total Protein Albumin Arterial Blood Glucose Arterial Blood Ionized Calcium Urine WBC (Auto) Crossmatch See Detail 10/02/20 10/02/20 10/02/20 16:25 16:35 16:35 WBC RBC Hgb Hct MCV MCH MCHC RDW Plt Count Lymph % (Auto) Bureau % (Auto) Lymph # (Auto) Bureau # (Auto) Seg Neutrophils % Seg Neuts % (Manual) Lymphocytes % (Manual) Monocytes % (Manual) Nucleated RBC % Seg Neutrophils # Seg Neutrophils # Man Lymphocytes # (Manual) Monocytes # (Manual) PT INR APTT Fibrinogen D-Dimer ABG pH 7.031 L* POC ABG pCO2 POC ABG pO2 ABG pO2 116.8 H ABG HCO3 12.7 L ABG Base Excess -16.9 L ABG Hemoglobin 7.8 L ABG Oxyhemoglobin ABG Sodium ABG Potassium ABG Chloride ABG Glucose VBG pH Oxyhemoglobin 94.9 L Carboxyhemoglobin Sodium Potassium Chloride Carbon Dioxide BUN Creatinine Glucose 403 H POC Glucose Lactic Acid 11.40 H* Calcium 6.3 L D Ionized Calcium Magnesium AST 70 H ALT Alkaline Phosphatase Lactate Dehydrogenase NT-Pro-B Natriuret Pep Total Protein 1.9 L D Albumin 1.2 L Arterial Blood Glucose Arterial Blood Ionized Calcium Urine WBC (Auto) Crossmatch 10/02/20 10/02/20 10/02/20 18:18 18:18 22:30 WBC 11.5 H RBC 2.06 L Hgb 5.5 L* D Hct 17.3 L* D MCV MCH 27 L MCHC RDW 19.5 H Plt Count 60 L Lymph % (Auto) Bureau % (Auto) Lymph # (Auto) Bureau # (Auto) Seg Neutrophils % Seg Neuts % (Manual) Lymphocytes % (Manual) 8.0 L Monocytes % (Manual) 8.0 H Nucleated RBC % 8.0 H Seg Neutrophils # Seg Neutrophils # Man Lymphocytes # (Manual) 0.9 L Monocytes # (Manual) 0.9 H PT 37.1 H INR 3.71 H APTT 135.8 H* Fibrinogen D-Dimer ABG pH 7.067 L* POC ABG pCO2 POC ABG pO2 ABG pO2 183.0 H ABG HCO3 14.1 L ABG Base Excess -15.1 L ABG Hemoglobin 7.7 L ABG Oxyhemoglobin ABG Sodium ABG Potassium ABG Chloride ABG Glucose VBG pH Oxyhemoglobin Carboxyhemoglobin Sodium Potassium Chloride Carbon Dioxide BUN Creatinine Glucose POC Glucose Lactic Acid Calcium Ionized Calcium Magnesium AST ALT Alkaline Phosphatase Lactate Dehydrogenase NT-Pro-B Natriuret Pep Total Protein Albumin Arterial Blood Glucose Arterial Blood Ionized Calcium Urine WBC (Auto) Crossmatch 10/02/20 10/02/20 10/03/20 Unknown Unknown 00:01 WBC RBC Hgb Hct MCV MCH MCHC RDW Plt Count Lymph % (Auto) Bureau % (Auto) Lymph # (Auto) Bureau # (Auto) Seg Neutrophils % Seg Neuts % (Manual) Lymphocytes % (Manual) Monocytes % (Manual) Nucleated RBC % Seg Neutrophils # Seg Neutrophils # Man Lymphocytes # (Manual) Monocytes # (Manual) PT 61.1 H INR 6.92 H* APTT 158.7 H* Fibrinogen < 60 L* D-Dimer > 47744 H ABG pH POC ABG pCO2 POC ABG pO2 ABG pO2 ABG HCO3 ABG Base Excess ABG Hemoglobin ABG Oxyhemoglobin ABG Sodium ABG Potassium ABG Chloride ABG Glucose VBG pH 6.949 L* Oxyhemoglobin Carboxyhemoglobin Sodium Potassium Chloride Carbon Dioxide BUN Creatinine Glucose POC Glucose 196 H Lactic Acid Calcium Ionized Calcium Magnesium AST ALT Alkaline Phosphatase Lactate Dehydrogenase NT-Pro-B Natriuret Pep Total Protein Albumin Arterial Blood Glucose Arterial Blood Ionized Calcium Urine WBC (Auto) Crossmatch 10/03/20 10/03/2020 00:40 00:40 00:40 WBC RBC Hgb Hct MCV MCH MCHC RDW Plt Count Lymph % (Auto) Bureau % (Auto) Lymph # (Auto) Bureau # (Auto) Seg Neutrophils % Seg Neuts % (Manual) Lymphocytes % (Manual) Monocytes % (Manual) Nucleated RBC % Seg Neutrophils # Seg Neutrophils # Man Lymphocytes # (Manual) Monocytes # (Manual) PT 15.1 H INR 1.21 H APTT Fibrinogen D-Dimer ABG pH POC ABG pCO2 POC ABG pO2 ABG pO2 ABG HCO3 ABG Base Excess ABG Hemoglobin ABG Oxyhemoglobin ABG Sodium ABG Potassium ABG Chloride ABG Glucose VBG pH Oxyhemoglobin Carboxyhemoglobin Sodium 136 L Potassium Chloride Carbon Dioxide BUN Creatinine 1.6 H D Glucose 106 H POC Glucose Lactic Acid 5.60 H* Calcium 6.5 L Ionized Calcium Magnesium AST 232 H ALT 104 H Alkaline Phosphatase Lactate Dehydrogenase NT-Pro-B Natriuret Pep Total Protein 3.9 L D Albumin 2.4 L Arterial Blood Glucose Arterial Blood Ionized Calcium Urine WBC (Auto) Crossmatch 10/03/20 10/03/20 10/03/20 02:08 02:08 02:08 WBC 17.6 H RBC 3.27 L Hgb 9.9 L D Hct 29.9 L D MCV MCH MCHC RDW 16.5 H Plt Count 75 L Lymph % (Auto) Bureau % (Auto) Lymph # (Auto) Bureau # (Auto) Seg Neutrophils % Seg Neuts % (Manual) 76.0 H Lymphocytes % (Manual) Monocytes % (Manual) Nucleated RBC % 8.0 H Seg Neutrophils # Seg Neutrophils # Man 13.4 H Lymphocytes # (Manual) Monocytes # (Manual) PT INR APTT Fibrinogen D-Dimer ABG pH POC ABG pCO2 POC ABG pO2 ABG pO2 ABG HCO3 ABG Base Excess ABG Hemoglobin ABG Oxyhemoglobin ABG Sodium ABG Potassium ABG Chloride ABG Glucose VBG pH Oxyhemoglobin Carboxyhemoglobin Sodium Potassium Chloride Carbon Dioxide 19 L BUN Creatinine 1.4 H Glucose 306 H POC Glucose Lactic Acid 10.50 H* Calcium 6.4 L Ionized Calcium Magnesium AST ALT Alkaline Phosphatase Lactate Dehydrogenase NT-Pro-B Natriuret Pep Total Protein Albumin Arterial Blood Glucose Arterial Blood Ionized Calcium Urine WBC (Auto) Crossmatch 10/03/20 10/03/2020 02:42 03:59 05:31 WBC RBC Hgb Hct MCV MCH MCHC RDW Plt Count Lymph % (Auto) Bureau % (Auto) Lymph # (Auto) Bureau # (Auto) Seg Neutrophils % Seg Neuts % (Manual) Lymphocytes % (Manual) Monocytes % (Manual) Nucleated RBC % Seg Neutrophils # Seg Neutrophils # Man Lymphocytes # (Manual) Monocytes # (Manual) PT INR APTT Fibrinogen D-Dimer ABG pH 7.144 L POC ABG pCO2 54.4 H POC ABG pO2 ABG pO2 ABG HCO3 ABG Base Excess ABG Hemoglobin 10.0 L ABG Oxyhemoglobin ABG Sodium ABG Potassium ABG Chloride 108.0 H ABG Glucose 306 H VBG pH Oxyhemoglobin Carboxyhemoglobin Sodium Potassium Chloride Carbon Dioxide BUN Creatinine Glucose POC Glucose 209 H Lactic Acid 9.20 H* Calcium Ionized Calcium Magnesium AST ALT Alkaline Phosphatase Lactate Dehydrogenase NT-Pro-B Natriuret Pep Total Protein Albumin Arterial Blood Glucose 306 H Arterial Blood Ionized Calcium 3.7 L Urine WBC (Auto) Crossmatch 10/03/20 10/03/20 10/03/20 09:00 09:00 09:00 WBC 27.4 H RBC 2.84 L Hgb 8.5 L Hct 25.1 L MCV MCH MCHC RDW 16.1 H Plt Count 72 L Lymph % (Auto) Bureau % (Auto) Lymph # (Auto) Bureau # (Auto) Seg Neutrophils % Seg Neuts % (Manual) Lymphocytes % (Manual) 11.0 L Monocytes % (Manual) Nucleated RBC % 3.0 H Seg Neutrophils # Seg Neutrophils # Man 18.4 H Lymphocytes # (Manual) Monocytes # (Manual) 1.9 H PT INR APTT Fibrinogen D-Dimer ABG pH POC ABG pCO2 POC ABG pO2 ABG pO2 ABG HCO3 ABG Base Excess ABG Hemoglobin ABG Oxyhemoglobin ABG Sodium ABG Potassium ABG Chloride ABG Glucose VBG pH Oxyhemoglobin Carboxyhemoglobin Sodium Potassium Chloride Carbon Dioxide BUN Creatinine 1.7 H Glucose 216 H POC Glucose Lactic Acid 9.20 H* Calcium 6.3 L Ionized Calcium Magnesium AST 331 H ALT 171 H Alkaline Phosphatase Lactate Dehydrogenase NT-Pro-B Natriuret Pep Total Protein 3.7 L Albumin 1.9 L Arterial Blood Glucose Arterial Blood Ionized Calcium Urine WBC (Auto) Crossmatch 10/03/20 10/03/20 10/03/20 11:20 11:46 11:50 WBC 28.7 H RBC 2.67 L Hgb 8.0 L Hct 23.7 L MCV MCH MCHC RDW 16.6 H Plt Count 76 L Lymph % (Auto) Bureau % (Auto) Lymph # (Auto) Bureau # (Auto) Seg Neutrophils % Seg Neuts % (Manual) Lymphocytes % (Manual) Monocytes % (Manual) Nucleated RBC % Seg Neutrophils # Seg Neutrophils # Man Lymphocytes # (Manual) Monocytes # (Manual) PT INR APTT Fibrinogen D-Dimer ABG pH POC ABG pCO2 POC ABG pO2 ABG pO2 ABG HCO3 ABG Base Excess ABG Hemoglobin ABG Oxyhemoglobin ABG Sodium ABG Potassium ABG Chloride ABG Glucose VBG pH Oxyhemoglobin Carboxyhemoglobin Sodium Potassium Chloride Carbon Dioxide BUN Creatinine Glucose POC Glucose 125 H Lactic Acid 8.00 H* Calcium Ionized Calcium Magnesium AST ALT Alkaline Phosphatase Lactate Dehydrogenase NT-Pro-B Natriuret Pep Total Protein Albumin Arterial Blood Glucose Arterial Blood Ionized Calcium Urine WBC (Auto) Crossmatch 10/03/20 10/04/20 10/04/20 11:50 00:40 00:40 WBC RBC Hgb 6.8 L Hct 19.4 L* MCV MCH MCHC RDW Plt Count 49 L Lymph % (Auto) Bureau % (Auto) Lymph # (Auto) Bureau # (Auto) Seg Neutrophils % Seg Neuts % (Manual) Lymphocytes % (Manual) Monocytes % (Manual) Nucleated RBC % Seg Neutrophils # Seg Neutrophils # Man Lymphocytes # (Manual) Monocytes # (Manual) PT INR APTT Fibrinogen D-Dimer ABG pH 7.244 L POC ABG pCO2 POC ABG pO2 ABG pO2 ABG HCO3 ABG Base Excess -4.5 L ABG Hemoglobin 7.3 L ABG Oxyhemoglobin ABG Sodium ABG Potassium ABG Chloride ABG Glucose VBG pH Oxyhemoglobin Carboxyhemoglobin Sodium Potassium Chloride Carbon Dioxide BUN Creatinine Glucose POC Glucose Lactic Acid Calcium Ionized Calcium Magnesium AST ALT Alkaline Phosphatase Lactate Dehydrogenase NT-Pro-B Natriuret Pep Total Protein Albumin Arterial Blood Glucose Arterial Blood Ionized Calcium Urine WBC (Auto) Crossmatch 10/04/20 10/04/20 10/04/20 03:53 10:00 10:00 WBC 14.6 H RBC 2.57 L Hgb 7.6 L Hct 22.5 L MCV MCH MCHC RDW 15.8 H Plt Count 38 L Lymph % (Auto) 7.7 L Bureau % (Auto) Lymph # (Auto) 1.1 L Bureau # (Auto) 0.9 H Seg Neutrophils % 85.6 H Seg Neuts % (Manual) Lymphocytes % (Manual) Monocytes % (Manual) Nucleated RBC % Seg Neutrophils # 12.5 H Seg Neutrophils # Man Lymphocytes # (Manual) Monocytes # (Manual) PT INR APTT Fibrinogen D-Dimer ABG pH POC ABG pCO2 POC ABG pO2 110.6 H ABG pO2 ABG HCO3 ABG Base Excess ABG Hemoglobin 6.7 L ABG Oxyhemoglobin ABG Sodium 132.0 L ABG Potassium ABG Chloride ABG Glucose 111 H VBG pH Oxyhemoglobin Carboxyhemoglobin Sodium 134 L D Potassium Chloride 97.6 L Carbon Dioxide BUN Creatinine 1.7 H Glucose POC Glucose Lactic Acid Calcium 6.3 L Ionized Calcium Magnesium AST 203 H ALT 81 H Alkaline Phosphatase Lactate Dehydrogenase NT-Pro-B Natriuret Pep Total Protein 3.9 L Albumin 2.3 L Arterial Blood Glucose 111 H Arterial Blood Ionized Calcium 3.5 L Urine WBC (Auto) Crossmatch 10/04/20 10/04/20 10/04/20 10:00 10:00 10:14 WBC RBC Hgb Hct MCV MCH MCHC RDW Plt Count Lymph % (Auto) Bureau % (Auto) Lymph # (Auto) Bureau # (Auto) Seg Neutrophils % Seg Neuts % (Manual) Lymphocytes % (Manual) Monocytes % (Manual) Nucleated RBC % Seg Neutrophils # Seg Neutrophils # Man Lymphocytes # (Manual) Monocytes # (Manual) PT INR APTT Fibrinogen D-Dimer > 70969 H ABG pH POC ABG pCO2 POC ABG pO2 ABG pO2 ABG HCO3 ABG Base Excess ABG Hemoglobin ABG Oxyhemoglobin ABG Sodium ABG Potassium ABG Chloride ABG Glucose VBG pH Oxyhemoglobin Carboxyhemoglobin Sodium Potassium Chloride Carbon Dioxide BUN Creatinine Glucose POC Glucose Lactic Acid 3.90 H* Calcium Ionized Calcium Magnesium AST ALT Alkaline Phosphatase Lactate Dehydrogenase NT-Pro-B Natriuret Pep 2788 H Total Protein Albumin Arterial Blood Glucose Arterial Blood Ionized Calcium Urine WBC (Auto) Crossmatch 10/04/20 10/04/20 10/04/20 14:00 14:00 18:00 WBC 15.7 H RBC 3.17 L Hgb 9.3 L 9.6 L Hct 27.2 L 28.0 L MCV MCH MCHC RDW 16.9 H Plt Count 41 L Lymph % (Auto) 8.6 L Bureau % (Auto) Lymph # (Auto) Bureau # (Auto) 0.9 H Seg Neutrophils % 85.4 H Seg Neuts % (Manual) Lymphocytes % (Manual) Monocytes % (Manual) Nucleated RBC % Seg Neutrophils # 13.4 H Seg Neutrophils # Man Lymphocytes # (Manual) Monocytes # (Manual) PT INR APTT Fibrinogen D-Dimer ABG pH POC ABG pCO2 POC ABG pO2 ABG pO2 ABG HCO3 ABG Base Excess ABG Hemoglobin ABG Oxyhemoglobin ABG Sodium ABG Potassium ABG Chloride ABG Glucose VBG pH Oxyhemoglobin Carboxyhemoglobin Sodium 133 L Potassium Chloride 96.4 L Carbon Dioxide BUN 18 H Creatinine 1.7 H Glucose POC Glucose Lactic Acid Calcium 6.3 L Ionized Calcium Magnesium AST ALT Alkaline Phosphatase Lactate Dehydrogenase NT-Pro-B Natriuret Pep Total Protein Albumin Arterial Blood Glucose Arterial Blood Ionized Calcium Urine WBC (Auto) Crossmatch 10/04/20 10/04/20 10/05/20 18:00 22:00 05:00 WBC 17.6 H RBC 3.34 L Hgb 9.9 L Hct 29.4 L MCV MCH MCHC RDW 17.1 H Plt Count 56 L Lymph % (Auto) 8.5 L Bureau % (Auto) Lymph # (Auto) Bureau # (Auto) 1.0 H Seg Neutrophils % 85.1 H Seg Neuts % (Manual) Lymphocytes % (Manual) Monocytes % (Manual) Nucleated RBC % Seg Neutrophils # 15.0 H Seg Neutrophils # Man Lymphocytes # (Manual) Monocytes # (Manual) PT INR APTT Fibrinogen D-Dimer ABG pH POC ABG pCO2 POC ABG pO2 ABG pO2 ABG HCO3 ABG Base Excess ABG Hemoglobin ABG Oxyhemoglobin ABG Sodium ABG Potassium ABG Chloride ABG Glucose VBG pH Oxyhemoglobin Carboxyhemoglobin Sodium 136 L Potassium Chloride Carbon Dioxide BUN 18 H Creatinine 1.7 H Glucose POC Glucose Lactic Acid 2.30 H* Calcium 6.6 L Ionized Calcium Magnesium AST ALT Alkaline Phosphatase Lactate Dehydrogenase NT-Pro-B Natriuret Pep Total Protein Albumin Arterial Blood Glucose Arterial Blood Ionized Calcium Urine WBC (Auto) Crossmatch 10/05/20 10/05/20 10/05/20 05:00 05:00 05:03 WBC RBC Hgb Hct MCV MCH MCHC RDW Plt Count Lymph % (Auto) Bureau % (Auto) Lymph # (Auto) Bureau # (Auto) Seg Neutrophils % Seg Neuts % (Manual) Lymphocytes % (Manual) Monocytes % (Manual) Nucleated RBC % Seg Neutrophils # Seg Neutrophils # Man Lymphocytes # (Manual) Monocytes # (Manual) PT INR APTT Fibrinogen D-Dimer ABG pH 7.458 H POC ABG pCO2 POC ABG pO2 ABG pO2 74.3 L ABG HCO3 27.5 H ABG Base Excess 3.4 H ABG Hemoglobin 10.0 L ABG Oxyhemoglobin ABG Sodium ABG Potassium ABG Chloride ABG Glucose VBG pH Oxyhemoglobin 94.9 L Carboxyhemoglobin Sodium Potassium Chloride Carbon Dioxide BUN 19 H Creatinine 1.8 H Glucose POC Glucose Lactic Acid Calcium 6.8 L Ionized Calcium 3.9 L Magnesium AST 225 H ALT 85 H Alkaline Phosphatase Lactate Dehydrogenase NT-Pro-B Natriuret Pep Total Protein 4.5 L Albumin 2.7 L Arterial Blood Glucose Arterial Blood Ionized Calcium Urine WBC (Auto) Crossmatch 10/05/20 10/05/20 10/05/20 10:10 15:00 19:40 WBC RBC Hgb Hct MCV MCH MCHC RDW Plt Count Lymph % (Auto) Bureau % (Auto) Lymph # (Auto) Bureau # (Auto) Seg Neutrophils % Seg Neuts % (Manual) Lymphocytes % (Manual) Monocytes % (Manual) Nucleated RBC % Seg Neutrophils # Seg Neutrophils # Man Lymphocytes # (Manual) Monocytes # (Manual) PT INR APTT Fibrinogen D-Dimer ABG pH POC ABG pCO2 POC ABG pO2 ABG pO2 ABG HCO3 ABG Base Excess ABG Hemoglobin ABG Oxyhemoglobin ABG Sodium ABG Potassium ABG Chloride ABG Glucose VBG pH Oxyhemoglobin Carboxyhemoglobin Sodium Potassium 3.5 L Chloride Carbon Dioxide 31 H 32 H BUN 19 H 19 H Creatinine 1.8 H 1.8 H Glucose POC Glucose Lactic Acid Calcium 7.0 L 7.2 L Ionized Calcium Magnesium 2.90 H AST ALT Alkaline Phosphatase Lactate Dehydrogenase NT-Pro-B Natriuret Pep Total Protein Albumin Arterial Blood Glucose Arterial Blood Ionized Calcium Urine WBC (Auto) Crossmatch 10/06/20 10/06/20 10/06/20 01:05 03:12 04:00 WBC 17.1 H RBC 3.47 L Hgb Hct MCV MCH MCHC RDW 17.4 H Plt Count 82 L Lymph % (Auto) 8.3 L Bureau % (Auto) Lymph # (Auto) Bureau # (Auto) 1.1 H Seg Neutrophils % 83.8 H Seg Neuts % (Manual) Lymphocytes % (Manual) Monocytes % (Manual) Nucleated RBC % Seg Neutrophils # 14.3 H Seg Neutrophils # Man Lymphocytes # (Manual) Monocytes # (Manual) PT INR APTT Fibrinogen D-Dimer ABG pH 7.474 H POC ABG pCO2 POC ABG pO2 129.5 H ABG pO2 ABG HCO3 ABG Base Excess ABG Hemoglobin 11.4 L ABG Oxyhemoglobin ABG Sodium 131.8 L ABG Potassium ABG Chloride ABG Glucose 103 H VBG pH Oxyhemoglobin Carboxyhemoglobin 0.3 L Sodium Potassium Chloride Carbon Dioxide BUN Creatinine Glucose POC Glucose Lactic Acid Calcium Ionized Calcium Magnesium 3.70 H AST ALT Alkaline Phosphatase Lactate Dehydrogenase NT-Pro-B Natriuret Pep Total Protein Albumin Arterial Blood Glucose 103 H Arterial Blood Ionized Calcium 4.2 L Urine WBC (Auto) Crossmatch 10/06/20 10/06/20 10/06/20 04:00 05:31 08:12 WBC RBC Hgb Hct MCV MCH MCHC RDW Plt Count Lymph % (Auto) Bureau % (Auto) Lymph # (Auto) Bureau # (Auto) Seg Neutrophils % Seg Neuts % (Manual) Lymphocytes % (Manual) Monocytes % (Manual) Nucleated RBC % Seg Neutrophils # Seg Neutrophils # Man Lymphocytes # (Manual) Monocytes # (Manual) PT INR APTT Fibrinogen D-Dimer ABG pH POC ABG pCO2 POC ABG pO2 ABG pO2 ABG HCO3 ABG Base Excess ABG Hemoglobin ABG Oxyhemoglobin ABG Sodium ABG Potassium ABG Chloride ABG Glucose VBG pH Oxyhemoglobin Carboxyhemoglobin Sodium Potassium 3.5 L Chloride Carbon Dioxide BUN 19 H Creatinine 1.8 H Glucose 102 H POC Glucose 116 H Lactic Acid Calcium 7.2 L Ionized Calcium Magnesium 5.40 H AST 307 H ALT 137 H Alkaline Phosphatase Lactate Dehydrogenase NT-Pro-B Natriuret Pep Total Protein 4.5 L Albumin 2.6 L Arterial Blood Glucose Arterial Blood Ionized Calcium Urine WBC (Auto) Crossmatch 10/06/20 10/06/20 10/06/20 11:00 11:50 20:13 WBC RBC Hgb Hct MCV MCH MCHC RDW Plt Count Lymph % (Auto) Bureau % (Auto) Lymph # (Auto) Bureau # (Auto) Seg Neutrophils % Seg Neuts % (Manual) Lymphocytes % (Manual) Monocytes % (Manual) Nucleated RBC % Seg Neutrophils # Seg Neutrophils # Man Lymphocytes # (Manual) Monocytes # (Manual) PT INR APTT Fibrinogen D-Dimer ABG pH POC ABG pCO2 POC ABG pO2 ABG pO2 ABG HCO3 ABG Base Excess ABG Hemoglobin ABG Oxyhemoglobin ABG Sodium ABG Potassium ABG Chloride ABG Glucose VBG pH Oxyhemoglobin Carboxyhemoglobin Sodium Potassium Chloride Carbon Dioxide BUN Creatinine Glucose POC Glucose 106 H Lactic Acid Calcium Ionized Calcium Magnesium 6.50 H 6.20 H AST ALT Alkaline Phosphatase Lactate Dehydrogenase NT-Pro-B Natriuret Pep Total Protein Albumin Arterial Blood Glucose Arterial Blood Ionized Calcium Urine WBC (Auto) Crossmatch 10/06/20 10/06/20 10/06/20 20:17 22:29 23:57 WBC RBC Hgb Hct MCV MCH MCHC RDW Plt Count Lymph % (Auto) Bureau % (Auto) Lymph # (Auto) Bureau # (Auto) Seg Neutrophils % Seg Neuts % (Manual) Lymphocytes % (Manual) Monocytes % (Manual) Nucleated RBC % Seg Neutrophils # Seg Neutrophils # Man Lymphocytes # (Manual) Monocytes # (Manual) PT INR APTT Fibrinogen D-Dimer ABG pH POC ABG pCO2 POC ABG pO2 ABG pO2 ABG HCO3 ABG Base Excess ABG Hemoglobin ABG Oxyhemoglobin ABG Sodium ABG Potassium ABG Chloride ABG Glucose VBG pH Oxyhemoglobin Carboxyhemoglobin Sodium Potassium Chloride Carbon Dioxide BUN Creatinine Glucose POC Glucose 112 H 126 H 133 H Lactic Acid Calcium Ionized Calcium Magnesium AST ALT Alkaline Phosphatase Lactate Dehydrogenase NT-Pro-B Natriuret Pep Total Protein Albumin Arterial Blood Glucose Arterial Blood Ionized Calcium Urine WBC (Auto) Crossmatch 10/07/20 10/07/20 10/07/20 00:35 02:22 03:16 WBC RBC Hgb Hct MCV MCH MCHC RDW Plt Count Lymph % (Auto) Bureau % (Auto) Lymph # (Auto) Bureau # (Auto) Seg Neutrophils % Seg Neuts % (Manual) Lymphocytes % (Manual) Monocytes % (Manual) Nucleated RBC % Seg Neutrophils # Seg Neutrophils # Man Lymphocytes # (Manual) Monocytes # (Manual) PT INR APTT Fibrinogen D-Dimer ABG pH POC ABG pCO2 POC ABG pO2 ABG pO2 ABG HCO3 ABG Base Excess ABG Hemoglobin 11.6 L ABG Oxyhemoglobin ABG Sodium ABG Potassium ABG Chloride ABG Glucose 156 H VBG pH Oxyhemoglobin Carboxyhemoglobin 0.3 L Sodium Potassium Chloride Carbon Dioxide BUN Creatinine Glucose POC Glucose 124 H Lactic Acid Calcium Ionized Calcium Magnesium 5.90 H AST ALT Alkaline Phosphatase Lactate Dehydrogenase NT-Pro-B Natriuret Pep Total Protein Albumin Arterial Blood Glucose 156 H Arterial Blood Ionized Calcium 4.2 L Urine WBC (Auto) Crossmatch 10/07/20 10/07/20 10/07/20 04:06 05:45 07:05 WBC 19.2 H RBC 3.57 L Hgb Hct MCV MCH MCHC 35 H RDW 17.1 H Plt Count 129 L Lymph % (Auto) Bureau % (Auto) Lymph # (Auto) Bureau # (Auto) Seg Neutrophils % Seg Neuts % (Manual) 94.0 H Lymphocytes % (Manual) 6.0 L Monocytes % (Manual) Nucleated RBC % Seg Neutrophils # Seg Neutrophils # Man 18.0 H Lymphocytes # (Manual) Monocytes # (Manual) PT INR APTT Fibrinogen D-Dimer ABG pH POC ABG pCO2 POC ABG pO2 ABG pO2 ABG HCO3 ABG Base Excess ABG Hemoglobin ABG Oxyhemoglobin ABG Sodium ABG Potassium ABG Chloride ABG Glucose VBG pH Oxyhemoglobin Carboxyhemoglobin Sodium Potassium Chloride Carbon Dioxide BUN Creatinine Glucose POC Glucose 135 H 149 H Lactic Acid Calcium Ionized Calcium Magnesium AST ALT Alkaline Phosphatase Lactate Dehydrogenase NT-Pro-B Natriuret Pep Total Protein Albumin Arterial Blood Glucose Arterial Blood Ionized Calcium Urine WBC (Auto) Crossmatch 10/07/20 10/07/20 10/07/20 07:05 07:05 12:21 WBC RBC Hgb Hct MCV MCH MCHC RDW Plt Count Lymph % (Auto) Bureau % (Auto) Lymph # (Auto) Bureau # (Auto) Seg Neutrophils % Seg Neuts % (Manual) Lymphocytes % (Manual) Monocytes % (Manual) Nucleated RBC % Seg Neutrophils # Seg Neutrophils # Man Lymphocytes # (Manual) Monocytes # (Manual) PT INR APTT Fibrinogen D-Dimer ABG pH POC ABG pCO2 POC ABG pO2 ABG pO2 ABG HCO3 ABG Base Excess ABG Hemoglobin ABG Oxyhemoglobin ABG Sodium ABG Potassium ABG Chloride ABG Glucose VBG pH Oxyhemoglobin Carboxyhemoglobin Sodium Potassium Chloride Carbon Dioxide BUN 21 H Creatinine 1.7 H Glucose 171 H POC Glucose 124 H Lactic Acid Calcium 7.4 L Ionized Calcium Magnesium 6.10 H AST 245 H ALT 147 H Alkaline Phosphatase Lactate Dehydrogenase NT-Pro-B Natriuret Pep Total Protein 5.3 L Albumin 2.8 L Arterial Blood Glucose Arterial Blood Ionized Calcium Urine WBC (Auto) Crossmatch 10/07/20 10/07/20 10/07/20 19:52 21:00 21:50 WBC RBC Hgb Hct MCV MCH MCHC RDW Plt Count Lymph % (Auto) Bureau % (Auto) Lymph # (Auto) Bureau # (Auto) Seg Neutrophils % Seg Neuts % (Manual) Lymphocytes % (Manual) Monocytes % (Manual) Nucleated RBC % Seg Neutrophils # Seg Neutrophils # Man Lymphocytes # (Manual) Monocytes # (Manual) PT INR APTT Fibrinogen D-Dimer ABG pH POC ABG pCO2 POC ABG pO2 ABG pO2 ABG HCO3 ABG Base Excess ABG Hemoglobin ABG Oxyhemoglobin ABG Sodium ABG Potassium ABG Chloride ABG Glucose VBG pH Oxyhemoglobin Carboxyhemoglobin Sodium Potassium Chloride Carbon Dioxide BUN Creatinine Glucose POC Glucose 193 H 138 H Lactic Acid Calcium Ionized Calcium 4.4 L Magnesium AST ALT Alkaline Phosphatase Lactate Dehydrogenase NT-Pro-B Natriuret Pep Total Protein Albumin Arterial Blood Glucose Arterial Blood Ionized Calcium Urine WBC (Auto) Crossmatch 10/07/20 10/08/20 10/08/20 23:41 04:20 05:30 WBC RBC Hgb Hct MCV MCH MCHC RDW Plt Count Lymph % (Auto) Bureau % (Auto) Lymph # (Auto) Bureau # (Auto) Seg Neutrophils % Seg Neuts % (Manual) Lymphocytes % (Manual) Monocytes % (Manual) Nucleated RBC % Seg Neutrophils # Seg Neutrophils # Man Lymphocytes # (Manual) Monocytes # (Manual) PT INR APTT Fibrinogen D-Dimer ABG pH 7.467 H POC ABG pCO2 POC ABG pO2 189.8 H ABG pO2 ABG HCO3 ABG Base Excess ABG Hemoglobin 10.8 L ABG Oxyhemoglobin ABG Sodium ABG Potassium ABG Chloride ABG Glucose 133 H VBG pH Oxyhemoglobin Carboxyhemoglobin Sodium Potassium Chloride Carbon Dioxide BUN Creatinine Glucose POC Glucose 118 H 114 H Lactic Acid Calcium Ionized Calcium Magnesium AST ALT Alkaline Phosphatase Lactate Dehydrogenase NT-Pro-B Natriuret Pep Total Protein Albumin Arterial Blood Glucose 133 H Arterial Blood Ionized Calcium 4.2 L Urine WBC (Auto) Crossmatch 10/08/20 10/08/20 10/08/20 05:43 06:42 06:42 WBC 23.6 H RBC 3.54 L Hgb Hct MCV MCH MCHC RDW 17.8 H Plt Count Lymph % (Auto) Bureau % (Auto) Lymph # (Auto) Bureau # (Auto) Seg Neutrophils % Seg Neuts % (Manual) 93.0 H Lymphocytes % (Manual) 3.0 L Monocytes % (Manual) Nucleated RBC % 1.0 H Seg Neutrophils # Seg Neutrophils # Man 21.9 H Lymphocytes # (Manual) 0.7 L Monocytes # (Manual) 0.9 H PT INR APTT Fibrinogen D-Dimer ABG pH POC ABG pCO2 POC ABG pO2 ABG pO2 ABG HCO3 ABG Base Excess ABG Hemoglobin ABG Oxyhemoglobin ABG Sodium ABG Potassium ABG Chloride ABG Glucose VBG pH Oxyhemoglobin Carboxyhemoglobin Sodium Potassium Chloride Carbon Dioxide BUN 28 H Creatinine 1.6 H Glucose 141 H POC Glucose 126 H Lactic Acid Calcium 7.6 L Ionized Calcium Magnesium AST 162 H ALT 103 H Alkaline Phosphatase Lactate Dehydrogenase NT-Pro-B Natriuret Pep Total Protein 5.4 L Albumin 2.7 L Arterial Blood Glucose Arterial Blood Ionized Calcium Urine WBC (Auto) Crossmatch 10/08/20 10/08/20 10/08/20 11:20 16:05 20:14 WBC RBC Hgb Hct MCV MCH MCHC RDW Plt Count Lymph % (Auto) Bureau % (Auto) Lymph # (Auto) Bureau # (Auto) Seg Neutrophils % Seg Neuts % (Manual) Lymphocytes % (Manual) Monocytes % (Manual) Nucleated RBC % Seg Neutrophils # Seg Neutrophils # Man Lymphocytes # (Manual) Monocytes # (Manual) PT INR APTT Fibrinogen D-Dimer ABG pH POC ABG pCO2 POC ABG pO2 ABG pO2 ABG HCO3 ABG Base Excess ABG Hemoglobin ABG Oxyhemoglobin ABG Sodium ABG Potassium ABG Chloride ABG Glucose VBG pH Oxyhemoglobin Carboxyhemoglobin Sodium Potassium Chloride Carbon Dioxide BUN Creatinine Glucose POC Glucose 127 H 172 H 147 H Lactic Acid Calcium Ionized Calcium Magnesium AST ALT Alkaline Phosphatase Lactate Dehydrogenase NT-Pro-B Natriuret Pep Total Protein Albumin Arterial Blood Glucose Arterial Blood Ionized Calcium Urine WBC (Auto) Crossmatch 10/08/20 10/08/20 10/09/20 21:27 23:24 02:10 WBC RBC Hgb Hct MCV MCH MCHC RDW Plt Count Lymph % (Auto) Bureau % (Auto) Lymph # (Auto) Bureau # (Auto) Seg Neutrophils % Seg Neuts % (Manual) Lymphocytes % (Manual) Monocytes % (Manual) Nucleated RBC % Seg Neutrophils # Seg Neutrophils # Man Lymphocytes # (Manual) Monocytes # (Manual) PT INR APTT Fibrinogen D-Dimer ABG pH POC ABG pCO2 POC ABG pO2 ABG pO2 ABG HCO3 ABG Base Excess ABG Hemoglobin ABG Oxyhemoglobin ABG Sodium ABG Potassium ABG Chloride ABG Glucose VBG pH Oxyhemoglobin Carboxyhemoglobin Sodium Potassium Chloride Carbon Dioxide BUN Creatinine Glucose POC Glucose 140 H 135 H 111 H Lactic Acid Calcium Ionized Calcium Magnesium AST ALT Alkaline Phosphatase Lactate Dehydrogenase NT-Pro-B Natriuret Pep Total Protein Albumin Arterial Blood Glucose Arterial Blood Ionized Calcium Urine WBC (Auto) Crossmatch 10/09/20 10/09/20 10/09/20 03:44 04:39 05:46 WBC 19.7 H RBC 3.51 L Hgb Hct MCV MCH MCHC RDW 17.7 H Plt Count Lymph % (Auto) Bureau % (Auto) Lymph # (Auto) Bureau # (Auto) Seg Neutrophils % Seg Neuts % (Manual) 86.0 H Lymphocytes % (Manual) 4.0 L Monocytes % (Manual) 9.0 H Nucleated RBC % Seg Neutrophils # Seg Neutrophils # Man 16.9 H Lymphocytes # (Manual) 0.8 L Monocytes # (Manual) 1.8 H PT INR APTT Fibrinogen D-Dimer ABG pH 7.513 H POC ABG pCO2 POC ABG pO2 33.6 L ABG pO2 ABG HCO3 ABG Base Excess ABG Hemoglobin 11.1 L ABG Oxyhemoglobin 70.2 L ABG Sodium ABG Potassium 3.2 L ABG Chloride 108.0 H ABG Glucose 108 H VBG pH Oxyhemoglobin Carboxyhemoglobin Sodium Potassium Chloride Carbon Dioxide BUN Creatinine Glucose POC Glucose 109 H Lactic Acid Calcium Ionized Calcium Magnesium AST ALT Alkaline Phosphatase Lactate Dehydrogenase NT-Pro-B Natriuret Pep Total Protein Albumin Arterial Blood Glucose 108 H Arterial Blood Ionized Calcium 4.3 L Urine WBC (Auto) Crossmatch 10/09/20 10/10/20 10/10/20 05:46 04:00 04:00 WBC 18.4 H RBC Hgb Hct MCV MCH MCHC RDW 17.5 H Plt Count Lymph % (Auto) 9.8 L Bureau % (Auto) 8.8 H Lymph # (Auto) Bureau # (Auto) 1.6 H Seg Neutrophils % 80.0 H Seg Neuts % (Manual) Lymphocytes % (Manual) Monocytes % (Manual) Nucleated RBC % Seg Neutrophils # 14.7 H Seg Neutrophils # Man Lymphocytes # (Manual) Monocytes # (Manual) PT INR APTT Fibrinogen D-Dimer ABG pH POC ABG pCO2 POC ABG pO2 ABG pO2 ABG HCO3 ABG Base Excess ABG Hemoglobin ABG Oxyhemoglobin ABG Sodium ABG Potassium ABG Chloride ABG Glucose VBG pH Oxyhemoglobin Carboxyhemoglobin Sodium 146 H Potassium 3.2 L 2.9 L* Chloride 108.9 H 112.6 H Carbon Dioxide BUN 34 H 28 H Creatinine 1.4 H 1.3 H Glucose 109 H 101 H POC Glucose Lactic Acid Calcium 7.6 L 7.8 L Ionized Calcium Magnesium AST 137 H 122 H ALT 99 H 81 H Alkaline Phosphatase Lactate Dehydrogenase NT-Pro-B Natriuret Pep Total Protein 5.1 L 5.2 L Albumin 2.6 L 2.7 L Arterial Blood Glucose Arterial Blood Ionized Calcium Urine WBC (Auto) Crossmatch 10/10/20 10/10/20 10/11/20 04:42 09:50 00:44 WBC RBC Hgb Hct MCV MCH MCHC RDW Plt Count Lymph % (Auto) Bureau % (Auto) Lymph # (Auto) Bureau # (Auto) Seg Neutrophils % Seg Neuts % (Manual) Lymphocytes % (Manual) Monocytes % (Manual) Nucleated RBC % Seg Neutrophils # Seg Neutrophils # Man Lymphocytes # (Manual) Monocytes # (Manual) PT INR APTT Fibrinogen D-Dimer ABG pH 7.534 H POC ABG pCO2 POC ABG pO2 ABG pO2 95.2 H ABG HCO3 ABG Base Excess ABG Hemoglobin 11.3 L ABG Oxyhemoglobin ABG Sodium ABG Potassium ABG Chloride ABG Glucose VBG pH Oxyhemoglobin Carboxyhemoglobin Sodium Potassium Chloride Carbon Dioxide BUN Creatinine Glucose POC Glucose 109 H 106 H Lactic Acid Calcium Ionized Calcium Magnesium AST ALT Alkaline Phosphatase Lactate Dehydrogenase NT-Pro-B Natriuret Pep Total Protein Albumin Arterial Blood Glucose Arterial Blood Ionized Calcium Urine WBC (Auto) Crossmatch 10/11/20 10/11/20 10/11/20 04:00 04:00 06:08 WBC 27.0 H RBC Hgb Hct MCV MCH MCHC RDW 17.7 H Plt Count Lymph % (Auto) 6.3 L Bureau % (Auto) Lymph # (Auto) Bureau # (Auto) 1.5 H Seg Neutrophils % 87.1 H Seg Neuts % (Manual) Lymphocytes % (Manual) Monocytes % (Manual) Nucleated RBC % Seg Neutrophils # 23.5 H Seg Neutrophils # Man Lymphocytes # (Manual) Monocytes # (Manual) PT INR APTT Fibrinogen D-Dimer ABG pH POC ABG pCO2 POC ABG pO2 ABG pO2 ABG HCO3 ABG Base Excess ABG Hemoglobin ABG Oxyhemoglobin ABG Sodium ABG Potassium ABG Chloride ABG Glucose VBG pH Oxyhemoglobin Carboxyhemoglobin Sodium Potassium 3.2 L Chloride 110.4 H Carbon Dioxide 19 L BUN 22 H Creatinine Glucose 116 H POC Glucose 107 H Lactic Acid Calcium 7.7 L Ionized Calcium Magnesium 1.60 L AST ALT Alkaline Phosphatase Lactate Dehydrogenase NT-Pro-B Natriuret Pep Total Protein Albumin Arterial Blood Glucose Arterial Blood Ionized Calcium Urine WBC (Auto) Crossmatch 10/11/20 10/11/20 10/12/20 11:41 13:26 03:52 WBC RBC Hgb Hct MCV MCH MCHC RDW Plt Count Lymph % (Auto) Bureau % (Auto) Lymph # (Auto) Bureau # (Auto) Seg Neutrophils % Seg Neuts % (Manual) Lymphocytes % (Manual) Monocytes % (Manual) Nucleated RBC % Seg Neutrophils # Seg Neutrophils # Man Lymphocytes # (Manual) Monocytes # (Manual) PT INR APTT Fibrinogen D-Dimer ABG pH POC ABG pCO2 POC ABG pO2 ABG pO2 ABG HCO3 ABG Base Excess ABG Hemoglobin ABG Oxyhemoglobin ABG Sodium ABG Potassium ABG Chloride ABG Glucose VBG pH Oxyhemoglobin Carboxyhemoglobin Sodium Potassium Chloride Carbon Dioxide BUN Creatinine Glucose POC Glucose 116 H 114 H Lactic Acid Calcium Ionized Calcium Magnesium AST ALT Alkaline Phosphatase Lactate Dehydrogenase NT-Pro-B Natriuret Pep Total Protein Albumin Arterial Blood Glucose Arterial Blood Ionized Calcium Urine WBC (Auto) 24.0 H Crossmatch 10/12/20 10/12/20 10/12/20 04:24 14:47 Unknown WBC 24.3 H RBC 3.38 L Hgb 9.8 L Hct MCV MCH MCHC RDW 18.7 H Plt Count Lymph % (Auto) Bureau % (Auto) Lymph # (Auto) Bureau # (Auto) Seg Neutrophils % Seg Neuts % (Manual) 93.5 H Lymphocytes % (Manual) 4.5 L Monocytes % (Manual) Nucleated RBC % Seg Neutrophils # Seg Neutrophils # Man 22.7 H Lymphocytes # (Manual) 1.1 L Monocytes # (Manual) PT INR APTT Fibrinogen D-Dimer ABG pH POC ABG pCO2 POC ABG pO2 ABG pO2 ABG HCO3 ABG Base Excess ABG Hemoglobin ABG Oxyhemoglobin ABG Sodium ABG Potassium ABG Chloride ABG Glucose VBG pH Oxyhemoglobin Carboxyhemoglobin Sodium Potassium Chloride 109.9 H Carbon Dioxide 13 L BUN 18 H Creatinine Glucose 119 H POC Glucose Lactic Acid Calcium 7.6 L Ionized Calcium Magnesium 1.60 L AST ALT Alkaline Phosphatase Lactate Dehydrogenase NT-Pro-B Natriuret Pep Total Protein Albumin Arterial Blood Glucose Arterial Blood Ionized Calcium Urine WBC (Auto) Crossmatch 10/12/20 Unknown WBC RBC Hgb Hct MCV MCH MCHC RDW Plt Count Lymph % (Auto) Bureau % (Auto) Lymph # (Auto) Bureau # (Auto) Seg Neutrophils % Seg Neuts % (Manual) Lymphocytes % (Manual) Monocytes % (Manual) Nucleated RBC % Seg Neutrophils # Seg Neutrophils # Man Lymphocytes # (Manual) Monocytes # (Manual) PT INR APTT Fibrinogen D-Dimer ABG pH POC ABG pCO2 POC ABG pO2 ABG pO2 ABG HCO3 ABG Base Excess ABG Hemoglobin ABG Oxyhemoglobin ABG Sodium ABG Potassium ABG Chloride ABG Glucose VBG pH Oxyhemoglobin Carboxyhemoglobin Sodium 135 L D Potassium 3.1 L Chloride Carbon Dioxide 17 L BUN Creatinine Glucose 510 H* POC Glucose Lactic Acid Calcium 7.2 L Ionized Calcium Magnesium AST ALT Alkaline Phosphatase Lactate Dehydrogenase NT-Pro-B Natriuret Pep Total Protein Albumin Arterial Blood Glucose Arterial Blood Ionized Calcium Urine WBC (Auto) Crossmatch Assessment and Plan 30 yo female presenting with eclampsia w/ seizure event w/ accompanyting cardiac arrest with ongoing encephalopathy. Recs- -MRI/MRV Brain w/o contrast (if clinically stable), otherwise for now, if cl inically stable, a CTA/CTVenogram Brain w/ wo contrast. -Repeat EEG study. -If imaging and EEG studies are normal, may need to consider CSF evaluation w/ opening/closing pressure, basic csf labs, encephaitis panel. Adrián Short MD Neurology
[2020-10-12] MEDS ORDERED: FOSPHENYTOIN 1,500 MG.PE in SODIUM CHLORIDE 0.9% 100 ML IV ONE (17:00)
[2020-10-12] MEDS ORDERED: MAGNESIUM SULFATE 2 GM/50 ML BAG IV ONE (17:00)
[2020-10-13] MEDS: IPRATROPIUM/ALBUTEROL SULFATE 3 ML AMPUL.NEB IH SCH ×3 (00:28→16:00)
[2020-10-13] MEDS: INSULIN REGULAR, HUMAN 100 UNIT/ML 3ML VIAL SUB-Q SCH ×6 (01:21→21:40)
[2020-10-13] MEDS: VANCOMYCIN 250 MG/10 ML ORAL LIQD PO SCH ×4 (02:31→21:39)
[2020-10-13] MEDS: dexmedeTOMIDine 1,000 MCG in SODIUM CHLORIDE 0.9% 250ML 250 ML IV SCH ×3 (05:22→18:42)
--- NOTE | 2020-10-13 07:28 | Progress Note ---
Assessment and Plan 30 y/o female with Eclampsia, s/p emergent section with DIC, acute respiratory failure and worsening renal function. 10/13/2020: EEG today. Will ask neuro which modality of imaging is preferred and will order that one. No sedation if possible. Only will use PRN pushes if necessary. ABG shows respiratory alkalosis. Reviewed ID note in regards to VTE. Will order dopplers of Upper and LE today. At risk for VTE as she was not anticoagulated given her coaguolopathy post op. Continue precedex. Overall prognosis is very guarded. 10/08/2020: Will start patient on precedex today. Plan is to wean off fent drip. Will increase buspar to BID. Need to see patient on as little sedation as possible to determine neurological status. EEG has still not been read. Mag stopped yesterday. Largest concern now is neurologic function. 10/07/2020: Head CT unremarkable. Await EEG to be read. Will stop mag Drip. If seizures occur then will load with Keppra and start BID dosing of this. Appreciate OB note. Continue D10 as sugars are still not severely elevated until feeds are at goal. PRN ativan present as well. Will add dilaudid for pain control. Increased BB to TID and added PRN hydralazine 10/06/2020: Stat Head CT today. Likely needs EEG. Will order. Continue Mag drip and follow up levels. Continue feeds. Continue to wean FiO2 as tolerated. Hold sedatives but can give PRN ativan as needed for seizure activity. Continue D10 as Tube feeds are not at goal yet. Guarded prognosis with mental state. 10/05/2020: Feed today. Stop Albumin and Abx. Will stop D10 once feeds start but will continue q2 hour FSBS until 3 consecutive >180. H/H stable. Will continue to aggressively wean FiO2. Patient has a 6.5 tube that will likely impede PSV trials given her size so will attempt to change out. Also will restart her home meds for anxiety and chronic migraine therapy. Prognosis is still guarded but promising given her hemodynamic stability. Continue chowdhury for accurate urine out put. 10/04/2020: Much improved today. Still very ill however. Down to just one pressor. Still with good urine output. Await chemistry results from this am. Likely can stop Bicarb drip given improvement in pH but would like to see bicarb on blood work. Agree with continued transfusion of blood products. Needs f ibrinongen levels as well as repeat coags. I cannot see the standing orders on my screen so will call down to lab and let them know what's needed. I know she has had at leas 2 cryo's but I am not exactly sure if the count is accurate in the computer in regards to PRBC's and FFP's. Platelets lower this am but still greater than 30K. Continue chowdhury for I/O measurement. Will start to wean FiO2 on vent. CXR looks like edema but oxygenation is stable right now. Resuscitation is the most important thing right now. Will continue abx therapy at least 24 more hours. Prognosis is still very guarded but patient showing signs of improvement. 1. CV-Extremely volume deplete as well as intrasvascular depletion. Will continue to bolus with LR and saline as needed. Will add Albumin to help with intravascular volume. Spoke with OB attending over phone yesterday. No acute indication for steroids at this time. Serial H/H's given maximum pressor requirements. Will transfuse to keep up with AVINASH drain and help with weaning. Severely acidotic but improving. Likely adding to pressor requirement. GOAL is map of 65 and will wean accordingly. Will start to wean Sohail first. Ordered art line as well. 2. Heme-DIC secondary to Eclampsia, possible sepsis but white count could be stress related. Will continue to transfuse PRBC's and FFP with Cryo as needed. Follow Fibrinogen levels. Tele Heme has been consulted and note reviewed. Will give one cryo for every 6 units of PRBC's transfused. has gotten one cryo, awaiting the other to thaw out. Plts at 72K right now. Hold on further t ransfusion. May need to consider Factor VII if execessive bleeding continues. Will also put on broad spec abx therapy incase of possible sepsis causing DIC. Hopeful with correction of coaguloapthy she will improve. 3. Very very guarded prognosis. Will continue aggressive resuscitation. Family to come visit given exceptional case and extremely guarded prognosis. CCT 31 minutes. Subjective Date of service: 10/13/20 Principal diagnosis: Eclampsia/HELLP Syndrome, ADOLPH, DIC; s/p , s/p supracervical hyst Interval history: Mental status is unchanged. Remains unresponsive. Eyes are slightly open this morning but not tracking. Reviewed Neurology note on yesterday. EEG ordered and will ask if they want MRI or CTA. Patient is clinically stable for either or. Objective Vital Signs - 12hr 10/12/20 10/12/20 10/12/20 19:30 19:45 20:00 Temperature 99.3 F Pulse Rate 77 85 81 Pulse Rate [ Anterior Bilateral Throughout] Pulse Rate [ 83 From Monitor] Respiratory 26 H 26 H 25 H Rate Respiratory Rate [Anterior Bilateral Throughout] Blood Pressure 139/88 136/84 137/80 O2 Sat by Pulse 99 98 98 Oximetry 10/12/20 10/12/20 10/12/20 20:04 20:15 20:30 Temperature Pulse Rate 90 83 80 Pulse Rate [ Anterior Bilateral Throughout] Pulse Rate [ From Monitor] Respiratory 25 H 24 Rate Respiratory Rate [Anterior Bilateral Throughout] Blood Pressure 137/80 130/63 116/65 O2 Sat by Pulse 100 98 98 Oximetry 10/12/20 10/12/20 10/12/20 20:45 21:00 21:15 Temperature Pulse Rate 81 85 84 Pulse Rate [ Anterior Bilateral Throughout] Pulse Rate [ From Monitor] Respiratory 26 H 29 H 24 Rate Respiratory Rate [Anterior Bilateral Throughout] Blood Pressure 116/69 120/70 131/83 O2 Sat by Pulse 98 98 Oximetry 10/12/20 10/12/20 10/12/20 21:30 21:45 21:51 Temperature Pulse Rate 83 85 82 Pulse Rate [ Anterior Bilateral Throughout] Pulse Rate [ From Monitor] Respiratory 25 H 25 H Rate Respiratory Rate [Anterior Bilateral Throughout] Blood Pressure 119/74 127/73 127/73 O2 Sat by Pulse 99 97 Oximetry 10/12/20 10/12/20 10/12/20 22:00 22:15 22:30 Temperature Pulse Rate 81 81 78 Pulse Rate [ Anterior Bilateral Throughout] Pulse Rate [ From Monitor] Respiratory 25 H 23 23 Rate Respiratory Rate [Anterior Bilateral Throughout] Blood Pressure 128/68 129/75 129/77 O2 Sat by Pulse 97 98 98 Oximetry 10/12/20 10/12/20 10/12/20 22:45 23:00 23:15 Temperature Pulse Rate 78 81 78 Pulse Rate [ Anterior Bilateral Throughout] Pulse Rate [ From Monitor] Respiratory 23 24 23 Rate Respiratory Rate [Anterior Bilateral Throughout] Blood Pressure 132/74 125/83 127/74 O2 Sat by Pulse 98 98 99 Oximetry 10/12/20 10/12/20 10/13/20 23:30 23:45 00:00 Temperature 97.2 F L Pulse Rate 78 82 81 Pulse Rate [ Anterior Bilateral Throughout] Pulse Rate [ 81 From Monitor] Respiratory 24 25 H 26 H Rate Respiratory Rate [Anterior Bilateral Throughout] Blood Pressure 125/73 119/80 126/80 O2 Sat by Pulse 98 98 100 Oximetry 10/13/20 10/13/20 10/13/20 00:09 00:15 00:21 Temperature Pulse Rate 79 81 Pulse Rate [ Anterior Bilateral Throughout] Pulse Rate [ From Monitor] Respiratory 24 25 H Rate Respiratory Rate [Anterior Bilateral Throughout] Blood Pressure 126/80 129/80 129/80 O2 Sat by Pulse 100 99 100 Oximetry 10/13/20 10/13/20 10/13/20 00:28 00:30 00:45 Temperature Pulse Rate 86 83 Pulse Rate [ 84 Anterior Bilateral Throughout] Pulse Rate [ From Monitor] Respiratory 27 H 23 Rate Respiratory 24 Rate [Anterior Bilateral Throughout] Blood Pressure 131/89 135/76 O2 Sat by Pulse 99 97 Oximetry 10/13/20 10/13/20 10/13/20 01:00 01:15 01:30 Temperature Pulse Rate 84 89 87 Pulse Rate [ Anterior Bilateral Throughout] Pulse Rate [ From Monitor] Respiratory 23 27 H 25 H Rate Respiratory Rate [Anterior Bilateral Throughout] Blood Pressure 134/79 139/84 142/77 O2 Sat by Pulse 100 99 97 Oximetry 10/13/20 10/13/20 10/13/20 01:45 02:00 02:15 Temperature Pulse Rate 84 84 86 Pulse Rate [ Anterior Bilateral Throughout] Pulse Rate [ From Monitor] Respiratory 26 H 23 24 Rate Respiratory Rate [Anterior Bilateral Throughout] Blood Pressure 135/82 127/78 125/74 O2 Sat by Pulse 97 97 97 Oximetry 10/13/20 10/13/20 10/13/20 02:30 02:45 03:00 Temperature Pulse Rate 86 86 84 Pulse Rate [ Anterior Bilateral Throughout] Pulse Rate [ From Monitor] Respiratory 23 25 H 24 Rate Respiratory Rate [Anterior Bilateral Throughout] Blood Pressure 133/76 130/76 133/77 O2 Sat by Pulse 98 98 97 Oximetry 10/13/20 10/13/20 10/13/20 03:15 03:30 03:45 Temperature Pulse Rate 85 85 85 Pulse Rate [ Anterior Bilateral Throughout] Pulse Rate [ From Monitor] Respiratory 25 H 26 H 25 H Rate Respiratory Rate [Anterior Bilateral Throughout] Blood Pressure 134/82 128/81 134/79 O2 Sat by Pulse 97 97 97 Oximetry 10/13/20 10/13/20 10/13/20 03:47 04:00 04:02 Temperature 99.8 F H Pulse Rate 85 82 Pulse Rate [ Anterior Bilateral Throughout] Pulse Rate [ 82 From Monitor] Respiratory 26 H Rate Respiratory Rate [Anterior Bilateral Throughout] Blood Pressure 129/81 129/81 O2 Sat by Pulse 97 100 Oximetry 10/13/20 10/13/20 10/13/20 04:15 04:30 04:45 Temperature Pulse Rate 84 85 83 Pulse Rate [ Anterior Bilateral Throughout] Pulse Rate [ From Monitor] Respiratory 24 25 H 25 H Rate Respiratory Rate [Anterior Bilateral Throughout] Blood Pressure 131/78 135/86 136/81 O2 Sat by Pulse 97 98 97 Oximetry 10/13/20 10/13/20 10/13/20 05:00 05:15 05:30 Temperature Pulse Rate 85 84 86 Pulse Rate [ Anterior Bilateral Throughout] Pulse Rate [ From Monitor] Respiratory 26 H 25 H 26 H Rate Respiratory Rate [Anterior Bilateral Throughout] Blood Pressure 139/84 148/86 141/88 O2 Sat by Pulse 100 97 98 Oximetry 10/13/20 10/13/20 10/13/20 05:45 06:00 06:15 Temperature Pulse Rate 92 H 85 88 Pulse Rate [ Anterior Bilateral Throughout] Pulse Rate [ From Monitor] Respiratory 24 24 25 H Rate Respiratory Rate [Anterior Bilateral Throughout] Blood Pressure 127/79 129/83 135/87 O2 Sat by Pulse 96 97 98 Oximetry 10/13/20 10/13/20 10/13/20 06:30 06:45 07:00 Temperature Pulse Rate 86 89 85 Pulse Rate [ Anterior Bilateral Throughout] Pulse Rate [ From Monitor] Respiratory 25 H 27 H 24 Rate Respiratory Rate [Anterior Bilateral Throughout] Blood Pressure 135/87 129/90 135/81 O2 Sat by Pulse 95 96 96 Oximetry Constitutional: comatose, other (critically ill on ventilator) Eyes: non-icteric ENT: oropharynx moist, other (orally intubated and not sedated) Neck: other (large in cirumference) Effort: normal Ascultation: Bilateral: clear, diminished breath sounds, other (coarse BS bilaterally w/ mild faint wheezes) Percussion: Bilateral: not dull Cardiovascular: regular rate and rhythm, other (no mrg) Gastrointestinal: normoactive bowel sounds, soft, other (post surgical changes with drain on the left side) Extremities: no cyanosis, pink and warm, anasarca Neurologic: other (unresponsive, not following commands, not tracking) Psychiatric: other (unable to assess) CBC and BMP: 10/12/20 Unknown 10/12/20 Unknown ABG, PT/INR, D-dimer: ABG ABG pH 7.534 pH Units (7.350-7.450) H 10/10/20 04:42 POC ABG pCO2 33.1 mmHg (32.0-48.0) 10/09/20 04:39 ABG pCO2 25.0 mm Hg 10/10/20 04:42 POC ABG pO2 33.6 mmHg (83-108) L 10/09/20 04:39 ABG pO2 95.2 mm Hg (80.0-90.0) H 10/10/20 04:42 POC ABG HCO3 26 10/09/20 04:39 ABG O2 Saturation 97.9 % (95.0-99.0) 10/10/20 04:42 PT/INR, D-dimer PT 13.0 Sec. (12.2-14.9) 10/05/20 05:00 INR 1.00 (0.87-1.13) 10/05/20 05:00 D-Dimer > 91416 ng/mlDDU (0-234) H 10/04/20 10:00 Abnormal lab findings: Abnormal Labs 10/02/20 10/02/20 10/02/20 12:03 12:18 12:18 WBC 14.9 H RBC Hgb 9.1 L Hct MCV MCH 22 L MCHC 28 L RDW 17.6 H Plt Count 102 L Lymph % (Auto) Douglas % (Auto) Lymph # (Auto) Douglas # (Auto) Seg Neutrophils % Seg Neuts % (Manual) 36.0 L Lymphocytes % (Manual) 49.0 H Monocytes % (Manual) Nucleated RBC % 6.0 H Seg Neutrophils # Seg Neutrophils # Man Lymphocytes # (Manual) 7.3 H Monocytes # (Manual) PT INR APTT Fibrinogen D-Dimer ABG pH POC ABG pCO2 POC ABG pO2 ABG pO2 ABG HCO3 ABG Base Excess ABG Hemoglobin ABG Oxyhemoglobin ABG Sodium ABG Potassium ABG Chloride ABG Glucose VBG pH Oxyhemoglobin Carboxyhemoglobin Sodium 134 L Potassium Chloride Carbon Dioxide 12 L BUN 6 L Creatinine Glucose 390 H POC Glucose 451 H Lactic Acid Calcium Ionized Calcium Magnesium AST 135 H ALT 85 H Alkaline Phosphatase 172 H Lactate Dehydrogenase 641 H NT-Pro-B Natriuret Pep Total Protein 5.4 L Albumin 2.3 L Arterial Blood Glucose Arterial Blood Ionized Calcium Urine WBC (Auto) Crossmatch 10/02/20 10/02/20 10/02/20 12:50 13:05 13:05 WBC 38.6 H RBC Hgb 8.9 L Hct 29.0 L MCV 73 L MCH 22 L MCHC RDW 17.2 H Plt Count Lymph % (Auto) Douglas % (Auto) Lymph # (Auto) Douglas # (Auto) Seg Neutrophils % Seg Neuts % (Manual) Lymphocytes % (Manual) Monocytes % (Manual) Nucleated RBC % 2.0 H Seg Neutrophils # Seg Neutrophils # Man 20.1 H Lymphocytes # (Manual) 10.4 H Monocytes # (Manual) 2.3 H PT INR APTT Fibrinogen D-Dimer ABG pH POC ABG pCO2 POC ABG pO2 ABG pO2 ABG HCO3 ABG Base Excess ABG Hemoglobin ABG Oxyhemoglobin ABG Sodium ABG Potassium ABG Chloride ABG Glucose VBG pH Oxyhemoglobin Carboxyhemoglobin Sodium Potassium Chloride Carbon Dioxide BUN Creatinine Glucose POC Glucose Lactic Acid Calcium Ionized Calcium Magnesium AST 184 H ALT 113 H Alkaline Phosphatase Lactate Dehydrogenase 769 H NT-Pro-B Natriuret Pep Total Protein Albumin Arterial Blood Glucose Arterial Blood Ionized Calcium Urine WBC (Auto) Crossmatch See Detail 10/02/20 10/02/20 10/02/20 16:25 16:35 16:35 WBC RBC Hgb Hct MCV MCH MCHC RDW Plt Count Lymph % (Auto) Douglas % (Auto) Lymph # (Auto) Douglas # (Auto) Seg Neutrophils % Seg Neuts % (Manual) Lymphocytes % (Manual) Monocytes % (Manual) Nucleated RBC % Seg Neutrophils # Seg Neutrophils # Man Lymphocytes # (Manual) Monocytes # (Manual) PT INR APTT Fibrinogen D-Dimer ABG pH 7.031 L* POC ABG pCO2 POC ABG pO2 ABG pO2 116.8 H ABG HCO3 12.7 L ABG Base Excess -16.9 L ABG Hemoglobin 7.8 L ABG Oxyhemoglobin ABG Sodium ABG Potassium ABG Chloride ABG Glucose VBG pH Oxyhemoglobin 94.9 L Carboxyhemoglobin Sodium Potassium Chloride Carbon Dioxide BUN Creatinine Glucose 403 H POC Glucose Lactic Acid 11.40 H* Calcium 6.3 L D Ionized Calcium Magnesium AST 70 H ALT Alkaline Phosphatase Lactate Dehydrogenase NT-Pro-B Natriuret Pep Total Protein 1.9 L D Albumin 1.2 L Arterial Blood Glucose Arterial Blood Ionized Calcium Urine WBC (Auto) Crossmatch 10/02/20 10/02/20 10/02/20 18:18 18:18 22:30 WBC 11.5 H RBC 2.06 L Hgb 5.5 L* D Hct 17.3 L* D MCV MCH 27 L MCHC RDW 19.5 H Plt Count 60 L Lymph % (Auto) Douglas % (Auto) Lymph # (Auto) Douglas # (Auto) Seg Neutrophils % Seg Neuts % (Manual) Lymphocytes % (Manual) 8.0 L Monocytes % (Manual) 8.0 H Nucleated RBC % 8.0 H Seg Neutrophils # Seg Neutrophils # Man Lymphocytes # (Manual) 0.9 L Monocytes # (Manual) 0.9 H PT 37.1 H INR 3.71 H APTT 135.8 H* Fibrinogen D-Dimer ABG pH 7.067 L* POC ABG pCO2 POC ABG pO2 ABG pO2 183.0 H ABG HCO3 14.1 L ABG Base Excess -15.1 L ABG Hemoglobin 7.7 L ABG Oxyhemoglobin ABG Sodium ABG Potassium ABG Chloride ABG Glucose VBG pH Oxyhemoglobin Carboxyhemoglobin Sodium Potassium Chloride Carbon Dioxide BUN Creatinine Glucose POC Glucose Lactic Acid Calcium Ionized Calcium Magnesium AST ALT Alkaline Phosphatase Lactate Dehydrogenase NT-Pro-B Natriuret Pep Total Protein Albumin Arterial Blood Glucose Arterial Blood Ionized Calcium Urine WBC (Auto) Crossmatch 10/02/20 10/02/20 10/03/20 Unknown Unknown 00:01 WBC RBC Hgb Hct MCV MCH MCHC RDW Plt Count Lymph % (Auto) Douglas % (Auto) Lymph # (Auto) Douglas # (Auto) Seg Neutrophils % Seg Neuts % (Manual) Lymphocytes % (Manual) Monocytes % (Manual) Nucleated RBC % Seg Neutrophils # Seg Neutrophils # Man Lymphocytes # (Manual) Monocytes # (Manual) PT 61.1 H INR 6.92 H* APTT 158.7 H* Fibrinogen < 60 L* D-Dimer > 73848 H ABG pH POC ABG pCO2 POC ABG pO2 ABG pO2 ABG HCO3 ABG Base Excess ABG Hemoglobin ABG Oxyhemoglobin ABG Sodium ABG Potassium ABG Chloride ABG Glucose VBG pH 6.949 L* Oxyhemoglobin Carboxyhemoglobin Sodium Potassium Chloride Carbon Dioxide BUN Creatinine Glucose POC Glucose 196 H Lactic Acid Calcium Ionized Calcium Magnesium AST ALT Alkaline Phosphatase Lactate Dehydrogenase NT-Pro-B Natriuret Pep Total Protein Albumin Arterial Blood Glucose Arterial Blood Ionized Calcium Urine WBC (Auto) Crossmatch 10/03/20 10/03/20 10/03/20 00:40 00:40 00:40 WBC RBC Hgb Hct MCV MCH MCHC RDW Plt Count Lymph % (Auto) Douglas % (Auto) Lymph # (Auto) Douglas # (Auto) Seg Neutrophils % Seg Neuts % (Manual) Lymphocytes % (Manual) Monocytes % (Manual) Nucleated RBC % Seg Neutrophils # Seg Neutrophils # Man Lymphocytes # (Manual) Monocytes # (Manual) PT 15.1 H INR 1.21 H APTT Fibrinogen D-Dimer ABG pH POC ABG pCO2 POC ABG pO2 ABG pO2 ABG HCO3 ABG Base Excess ABG Hemoglobin ABG Oxyhemoglobin ABG Sodium ABG Potassium ABG Chloride ABG Glucose VBG pH Oxyhemoglobin Carboxyhemoglobin Sodium 136 L Potassium Chloride Carbon Dioxide BUN Creatinine 1.6 H D Glucose 106 H POC Glucose Lactic Acid 5.60 H* Calcium 6.5 L Ionized Calcium Magnesium AST 232 H ALT 104 H Alkaline Phosphatase Lactate Dehydrogenase NT-Pro-B Natriuret Pep Total Protein 3.9 L D Albumin 2.4 L Arterial Blood Glucose Arterial Blood Ionized Calcium Urine WBC (Auto) Crossmatch 10/03/20 10/03/20 10/03/20 02:08 02:08 02:08 WBC 17.6 H RBC 3.27 L Hgb 9.9 L D Hct 29.9 L D MCV MCH MCHC RDW 16.5 H Plt Count 75 L Lymph % (Auto) Douglas % (Auto) Lymph # (Auto) Douglas # (Auto) Seg Neutrophils % Seg Neuts % (Manual) 76.0 H Lymphocytes % (Manual) Monocytes % (Manual) Nucleated RBC % 8.0 H Seg Neutrophils # Seg Neutrophils # Man 13.4 H Lymphocytes # (Manual) Monocytes # (Manual) PT INR APTT Fibrinogen D-Dimer ABG pH POC ABG pCO2 POC ABG pO2 ABG pO2 ABG HCO3 ABG Base Excess ABG Hemoglobin ABG Oxyhemoglobin ABG Sodium ABG Potassium ABG Chloride ABG Glucose VBG pH Oxyhemoglobin Carboxyhemoglobin Sodium Potassium Chloride Carbon Dioxide 19 L BUN Creatinine 1.4 H Glucose 306 H POC Glucose Lactic Acid 10.50 H* Calcium 6.4 L Ionized Calcium Magnesium AST ALT Alkaline Phosphatase Lactate Dehydrogenase NT-Pro-B Natriuret Pep Total Protein Albumin Arterial Blood Glucose Arterial Blood Ionized Calcium Urine WBC (Auto) Crossmatch 10/03/20 10/03/20 10/03/20 02:42 03:59 05:31 WBC RBC Hgb Hct MCV MCH MCHC RDW Plt Count Lymph % (Auto) Douglas % (Auto) Lymph # (Auto) Douglas # (Auto) Seg Neutrophils % Seg Neuts % (Manual) Lymphocytes % (Manual) Monocytes % (Manual) Nucleated RBC % Seg Neutrophils # Seg Neutrophils # Man Lymphocytes # (Manual) Monocytes # (Manual) PT INR APTT Fibrinogen D-Dimer ABG pH 7.144 L POC ABG pCO2 54.4 H POC ABG pO2 ABG pO2 ABG HCO3 ABG Base Excess ABG Hemoglobin 10.0 L ABG Oxyhemoglobin ABG Sodium ABG Potassium ABG Chloride 108.0 H ABG Glucose 306 H VBG pH Oxyhemoglobin Carboxyhemoglobin Sodium Potassium Chloride Carbon Dioxide BUN Creatinine Glucose POC Glucose 209 H Lactic Acid 9.20 H* Calcium Ionized Calcium Magnesium AST ALT Alkaline Phosphatase Lactate Dehydrogenase NT-Pro-B Natriuret Pep Total Protein Albumin Arterial Blood Glucose 306 H Arterial Blood Ionized Calcium 3.7 L Urine WBC (Auto) Crossmatch 10/03/20 10/03/20 10/03/20 09:00 09:00 09:00 WBC 27.4 H RBC 2.84 L Hgb 8.5 L Hct 25.1 L MCV MCH MCHC RDW 16.1 H Plt Count 72 L Lymph % (Auto) Douglas % (Auto) Lymph # (Auto) Douglas # (Auto) Seg Neutrophils % Seg Neuts % (Manual) Lymphocytes % (Manual) 11.0 L Monocytes % (Manual) Nucleated RBC % 3.0 H Seg Neutrophils # Seg Neutrophils # Man 18.4 H Lymphocytes # (Manual) Monocytes # (Manual) 1.9 H PT INR APTT Fibrinogen D-Dimer ABG pH POC ABG pCO2 POC ABG pO2 ABG pO2 ABG HCO3 ABG Base Excess ABG Hemoglobin ABG Oxyhemoglobin ABG Sodium ABG Potassium ABG Chloride ABG Glucose VBG pH Oxyhemoglobin Carboxyhemoglobin Sodium Potassium Chloride Carbon Dioxide BUN Creatinine 1.7 H Glucose 216 H POC Glucose Lactic Acid 9.20 H* Calcium 6.3 L Ionized Calcium Magnesium AST 331 H ALT 171 H Alkaline Phosphatase Lactate Dehydrogenase NT-Pro-B Natriuret Pep Total Protein 3.7 L Albumin 1.9 L Arterial Blood Glucose Arterial Blood Ionized Calcium Urine WBC (Auto) Crossmatch 10/03/20 10/03/20 10/03/20 11:20 11:46 11:50 WBC 28.7 H RBC 2.67 L Hgb 8.0 L Hct 23.7 L MCV MCH MCHC RDW 16.6 H Plt Count 76 L Lymph % (Auto) Douglas % (Auto) Lymph # (Auto) Douglas # (Auto) Seg Neutrophils % Seg Neuts % (Manual) Lymphocytes % (Manual) Monocytes % (Manual) Nucleated RBC % Seg Neutrophils # Seg Neutrophils # Man Lymphocytes # (Manual) Monocytes # (Manual) PT INR APTT Fibrinogen D-Dimer ABG pH POC ABG pCO2 POC ABG pO2 ABG pO2 ABG HCO3 ABG Base Excess ABG Hemoglobin ABG Oxyhemoglobin ABG Sodium ABG Potassium ABG Chloride ABG Glucose VBG pH Oxyhemoglobin Carboxyhemoglobin Sodium Potassium Chloride Carbon Dioxide BUN Creatinine Glucose POC Glucose 125 H Lactic Acid 8.00 H* Calcium Ionized Calcium Magnesium AST ALT Alkaline Phosphatase Lactate Dehydrogenase NT-Pro-B Natriuret Pep Total Protein Albumin Arterial Blood Glucose Arterial Blood Ionized Calcium Urine WBC (Auto) Crossmatch 10/03/20 10/04/20 10/04/20 11:50 00:40 00:40 WBC RBC Hgb 6.8 L Hct 19.4 L* MCV MCH MCHC RDW Plt Count 49 L Lymph % (Auto) Douglas % (Auto) Lymph # (Auto) Douglas # (Auto) Seg Neutrophils % Seg Neuts % (Manual) Lymphocytes % (Manual) Monocytes % (Manual) Nucleated RBC % Seg Neutrophils # Seg Neutrophils # Man Lymphocytes # (Manual) Monocytes # (Manual) PT INR APTT Fibrinogen D-Dimer ABG pH 7.244 L POC ABG pCO2 POC ABG pO2 ABG pO2 ABG HCO3 ABG Base Excess -4.5 L ABG Hemoglobin 7.3 L ABG Oxyhemoglobin ABG Sodium ABG Potassium ABG Chloride ABG Glucose VBG pH Oxyhemoglobin Carboxyhemoglobin Sodium Potassium Chloride Carbon Dioxide BUN Creatinine Glucose POC Glucose Lactic Acid Calcium Ionized Calcium Magnesium AST ALT Alkaline Phosphatase Lactate Dehydrogenase NT-Pro-B Natriuret Pep Total Protein Albumin Arterial Blood Glucose Arterial Blood Ionized Calcium Urine WBC (Auto) Crossmatch 10/04/20 10/04/20 10/04/20 03:53 10:00 10:00 WBC 14.6 H RBC 2.57 L Hgb 7.6 L Hct 22.5 L MCV MCH MCHC RDW 15.8 H Plt Count 38 L Lymph % (Auto) 7.7 L Douglas % (Auto) Lymph # (Auto) 1.1 L Douglas # (Auto) 0.9 H Seg Neutrophils % 85.6 H Seg Neuts % (Manual) Lymphocytes % (Manual) Monocytes % (Manual) Nucleated RBC % Seg Neutrophils # 12.5 H Seg Neutrophils # Man Lymphocytes # (Manual) Monocytes # (Manual) PT INR APTT Fibrinogen D-Dimer ABG pH POC ABG pCO2 POC ABG pO2 110.6 H ABG pO2 ABG HCO3 ABG Base Excess ABG Hemoglobin 6.7 L ABG Oxyhemoglobin ABG Sodium 132.0 L ABG Potassium ABG Chloride ABG Glucose 111 H VBG pH Oxyhemoglobin Carboxyhemoglobin Sodium 134 L D Potassium Chloride 97.6 L Carbon Dioxide BUN Creatinine 1.7 H Glucose POC Glucose Lactic Acid Calcium 6.3 L Ionized Calcium Magnesium AST 203 H ALT 81 H Alkaline Phosphatase Lactate Dehydrogenase NT-Pro-B Natriuret Pep Total Protein 3.9 L Albumin 2.3 L Arterial Blood Glucose 111 H Arterial Blood Ionized Calcium 3.5 L Urine WBC (Auto) Crossmatch 10/04/20 10/04/20 10/04/20 10:00 10:00 10:14 WBC RBC Hgb Hct MCV MCH MCHC RDW Plt Count Lymph % (Auto) Douglas % (Auto) Lymph # (Auto) Douglas # (Auto) Seg Neutrophils % Seg Neuts % (Manual) Lymphocytes % (Manual) Monocytes % (Manual) Nucleated RBC % Seg Neutrophils # Seg Neutrophils # Man Lymphocytes # (Manual) Monocytes # (Manual) PT INR APTT Fibrinogen D-Dimer > 92294 H ABG pH POC ABG pCO2 POC ABG pO2 ABG pO2 ABG HCO3 ABG Base Excess ABG Hemoglobin ABG Oxyhemoglobin ABG Sodium ABG Potassium ABG Chloride ABG Glucose VBG pH Oxyhemoglobin Carboxyhemoglobin Sodium Potassium Chloride Carbon Dioxide BUN Creatinine Glucose POC Glucose Lactic Acid 3.90 H* Calcium Ionized Calcium Magnesium AST ALT Alkaline Phosphatase Lactate Dehydrogenase NT-Pro-B Natriuret Pep 2788 H Total Protein Albumin Arterial Blood Glucose Arterial Blood Ionized Calcium Urine WBC (Auto) Crossmatch 10/04/20 10/04/20 10/04/20 14:00 14:00 18:00 WBC 15.7 H RBC 3.17 L Hgb 9.3 L 9.6 L Hct 27.2 L 28.0 L MCV MCH MCHC RDW 16.9 H Plt Count 41 L Lymph % (Auto) 8.6 L Douglas % (Auto) Lymph # (Auto) Douglas # (Auto) 0.9 H Seg Neutrophils % 85.4 H Seg Neuts % (Manual) Lymphocytes % (Manual) Monocytes % (Manual) Nucleated RBC % Seg Neutrophils # 13.4 H Seg Neutrophils # Man Lymphocytes # (Manual) Monocytes # (Manual) PT INR APTT Fibrinogen D-Dimer ABG pH POC ABG pCO2 POC ABG pO2 ABG pO2 ABG HCO3 ABG Base Excess ABG Hemoglobin ABG Oxyhemoglobin ABG Sodium ABG Potassium ABG Chloride ABG Glucose VBG pH Oxyhemoglobin Carboxyhemoglobin Sodium 133 L Potassium Chloride 96.4 L Carbon Dioxide BUN 18 H Creatinine 1.7 H Glucose POC Glucose Lactic Acid Calcium 6.3 L Ionized Calcium Magnesium AST ALT Alkaline Phosphatase Lactate Dehydrogenase NT-Pro-B Natriuret Pep Total Protein Albumin Arterial Blood Glucose Arterial Blood Ionized Calcium Urine WBC (Auto) Crossmatch 10/04/20 10/04/20 10/05/20 18:00 22:00 05:00 WBC 17.6 H RBC 3.34 L Hgb 9.9 L Hct 29.4 L MCV MCH MCHC RDW 17.1 H Plt Count 56 L Lymph % (Auto) 8.5 L [place] % (Auto) Lymph # (Auto) [place] # (Auto) 1.0 H Seg Neutrophils % 85.1 H Seg Neuts % (Manual) Lymphocytes % (Manual) Monocytes % (Manual) Nucleated RBC % Seg Neutrophils # 15.0 H Seg Neutrophils # Man Lymphocytes # (Manual) Monocytes # (Manual) PT INR APTT Fibrinogen D-Dimer ABG pH POC ABG pCO2 POC ABG pO2 ABG pO2 ABG HCO3 ABG Base Excess ABG Hemoglobin ABG Oxyhemoglobin ABG Sodium ABG Potassium ABG Chloride ABG Glucose VBG pH Oxyhemoglobin Carboxyhemoglobin Sodium 136 L Potassium Chloride Carbon Dioxide BUN 18 H Creatinine 1.7 H Glucose POC Glucose Lactic Acid 2.30 H* Calcium 6.6 L Ionized Calcium Magnesium AST ALT Alkaline Phosphatase Lactate Dehydrogenase NT-Pro-B Natriuret Pep Total Protein Albumin Arterial Blood Glucose Arterial Blood Ionized Calcium Urine WBC (Auto) Crossmatch 10/05/20 10/05/20 10/05/20 05:00 05:00 05:03 WBC RBC Hgb Hct MCV MCH MCHC RDW Plt Count Lymph % (Auto) [place] % (Auto) Lymph # (Auto) [place] # (Auto) Seg Neutrophils % Seg Neuts % (Manual) Lymphocytes % (Manual) Monocytes % (Manual) Nucleated RBC % Seg Neutrophils # Seg Neutrophils # Man Lymphocytes # (Manual) Monocytes # (Manual) PT INR APTT Fibrinogen D-Dimer ABG pH 7.458 H POC ABG pCO2 POC ABG pO2 ABG pO2 74.3 L ABG HCO3 27.5 H ABG Base Excess 3.4 H ABG Hemoglobin 10.0 L ABG Oxyhemoglobin ABG Sodium ABG Potassium ABG Chloride ABG Glucose VBG pH Oxyhemoglobin 94.9 L Carboxyhemoglobin Sodium Potassium Chloride Carbon Dioxide BUN 19 H Creatinine 1.8 H Glucose POC Glucose Lactic Acid Calcium 6.8 L Ionized Calcium 3.9 L Magnesium AST 225 H ALT 85 H Alkaline Phosphatase Lactate Dehydrogenase NT-Pro-B Natriuret Pep Total Protein 4.5 L Albumin 2.7 L Arterial Blood Glucose Arterial Blood Ionized Calcium Urine WBC (Auto) Crossmatch 10/05/20 10/05/20 10/05/20 10:10 15:00 19:40 WBC RBC Hgb Hct MCV MCH MCHC RDW Plt Count Lymph % (Auto) [place] % (Auto) Lymph # (Auto) [place] # (Auto) Seg Neutrophils % Seg Neuts % (Manual) Lymphocytes % (Manual) Monocytes % (Manual) Nucleated RBC % Seg Neutrophils # Seg Neutrophils # Man Lymphocytes # (Manual) Monocytes # (Manual) PT INR APTT Fibrinogen D-Dimer ABG pH POC ABG pCO2 POC ABG pO2 ABG pO2 ABG HCO3 ABG Base Excess ABG Hemoglobin ABG Oxyhemoglobin ABG Sodium ABG Potassium ABG Chloride ABG Glucose VBG pH Oxyhemoglobin Carboxyhemoglobin Sodium Potassium 3.5 L Chloride Carbon Dioxide 31 H 32 H BUN 19 H 19 H Creatinine 1.8 H 1.8 H Glucose POC Glucose Lactic Acid Calcium 7.0 L 7.2 L Ionized Calcium Magnesium 2.90 H AST ALT Alkaline Phosphatase Lactate Dehydrogenase NT-Pro-B Natriuret Pep Total Protein Albumin Arterial Blood Glucose Arterial Blood Ionized Calcium Urine WBC (Auto) Crossmatch 10/06/20 10/06/20 10/06/20 01:05 03:12 04:00 WBC 17.1 H RBC 3.47 L Hgb Hct MCV MCH MCHC RDW 17.4 H Plt Count 82 L Lymph % (Auto) 8.3 L [place] % (Auto) Lymph # (Auto) [place] # (Auto) 1.1 H Seg Neutrophils % 83.8 H Seg Neuts % (Manual) Lymphocytes % (Manual) Monocytes % (Manual) Nucleated RBC % Seg Neutrophils # 14.3 H Seg Neutrophils # Man Lymphocytes # (Manual) Monocytes # (Manual) PT INR APTT Fibrinogen D-Dimer ABG pH 7.474 H POC ABG pCO2 POC ABG pO2 129.5 H ABG pO2 ABG HCO3 ABG Base Excess ABG Hemoglobin 11.4 L ABG Oxyhemoglobin ABG Sodium 131.8 L ABG Potassium ABG Chloride ABG Glucose 103 H VBG pH Oxyhemoglobin Carboxyhemoglobin 0.3 L Sodium Potassium Chloride Carbon Dioxide BUN Creatinine Glucose POC Glucose Lactic Acid Calcium Ionized Calcium Magnesium 3.70 H AST ALT Alkaline Phosphatase Lactate Dehydrogenase NT-Pro-B Natriuret Pep Total Protein Albumin Arterial Blood Glucose 103 H Arterial Blood Ionized Calcium 4.2 L Urine WBC (Auto) Crossmatch 10/06/20 10/06/20 10/06/20 04:00 05:31 08:12 WBC RBC Hgb Hct MCV MCH MCHC RDW Plt Count Lymph % (Auto) [place] % (Auto) Lymph # (Auto) [place] # (Auto) Seg Neutrophils % Seg Neuts % (Manual) Lymphocytes % (Manual) Monocytes % (Manual) Nucleated RBC % Seg Neutrophils # Seg Neutrophils # Man Lymphocytes # (Manual) Monocytes # (Manual) PT INR APTT Fibrinogen D-Dimer ABG pH POC ABG pCO2 POC ABG pO2 ABG pO2 ABG HCO3 ABG Base Excess ABG Hemoglobin ABG Oxyhemoglobin ABG Sodium ABG Potassium ABG Chloride ABG Glucose VBG pH Oxyhemoglobin Carboxyhemoglobin Sodium Potassium 3.5 L Chloride Carbon Dioxide BUN 19 H Creatinine 1.8 H Glucose 102 H POC Glucose 116 H Lactic Acid Calcium 7.2 L Ionized Calcium Magnesium 5.40 H AST 307 H ALT 137 H Alkaline Phosphatase Lactate Dehydrogenase NT-Pro-B Natriuret Pep Total Protein 4.5 L Albumin 2.6 L Arterial Blood Glucose Arterial Blood Ionized Calcium Urine WBC (Auto) Crossmatch 10/06/20 10/06/20 10/06/20 11:00 11:50 20:13 WBC RBC Hgb Hct MCV MCH MCHC RDW Plt Count Lymph % (Auto) [place] % (Auto) Lymph # (Auto) [place] # (Auto) Seg Neutrophils % Seg Neuts % (Manual) Lymphocytes % (Manual) Monocytes % (Manual) Nucleated RBC % Seg Neutrophils # Seg Neutrophils # Man Lymphocytes # (Manual) Monocytes # (Manual) PT INR APTT Fibrinogen D-Dimer ABG pH POC ABG pCO2 POC ABG pO2 ABG pO2 ABG HCO3 ABG Base Excess ABG Hemoglobin ABG Oxyhemoglobin ABG Sodium ABG Potassium ABG Chloride ABG Glucose VBG pH Oxyhemoglobin Carboxyhemoglobin Sodium Potassium Chloride Carbon Dioxide BUN Creatinine Glucose POC Glucose 106 H Lactic Acid Calcium Ionized Calcium Magnesium 6.50 H 6.20 H AST ALT Alkaline Phosphatase Lactate Dehydrogenase NT-Pro-B Natriuret Pep Total Protein Albumin Arterial Blood Glucose Arterial Blood Ionized Calcium Urine WBC (Auto) Crossmatch 10/06/20 10/06/20 10/06/20 20:17 22:29 23:57 WBC RBC Hgb Hct MCV MCH MCHC RDW Plt Count Lymph % (Auto) [place] % (Auto) Lymph # (Auto) [place] # (Auto) Seg Neutrophils % Seg Neuts % (Manual) Lymphocytes % (Manual) Monocytes % (Manual) Nucleated RBC % Seg Neutrophils # Seg Neutrophils # Man Lymphocytes # (Manual) Monocytes # (Manual) PT INR APTT Fibrinogen D-Dimer ABG pH POC ABG pCO2 POC ABG pO2 ABG pO2 ABG HCO3 ABG Base Excess ABG Hemoglobin ABG Oxyhemoglobin ABG Sodium ABG Potassium ABG Chloride ABG Glucose VBG pH Oxyhemoglobin Carboxyhemoglobin Sodium Potassium Chloride Carbon Dioxide BUN Creatinine Glucose POC Glucose 112 H 126 H 133 H Lactic Acid Calcium Ionized Calcium Magnesium AST ALT Alkaline Phosphatase Lactate Dehydrogenase NT-Pro-B Natriuret Pep Total Protein Albumin Arterial Blood Glucose Arterial Blood Ionized Calcium Urine WBC (Auto) Crossmatch 10/07/20 10/07/20 10/07/20 00:35 02:22 03:16 WBC RBC Hgb Hct MCV MCH MCHC RDW Plt Count Lymph % (Auto) [place] % (Auto) Lymph # (Auto) [place] # (Auto) Seg Neutrophils % Seg Neuts % (Manual) Lymphocytes % (Manual) Monocytes % (Manual) Nucleated RBC % Seg Neutrophils # Seg Neutrophils # Man Lymphocytes # (Manual) Monocytes # (Manual) PT INR APTT Fibrinogen D-Dimer ABG pH POC ABG pCO2 POC ABG pO2 ABG pO2 ABG HCO3 ABG Base Excess ABG Hemoglobin 11.6 L ABG Oxyhemoglobin ABG Sodium ABG Potassium ABG Chloride ABG Glucose 156 H VBG pH Oxyhemoglobin Carboxyhemoglobin 0.3 L Sodium Potassium Chloride Carbon Dioxide BUN Creatinine Glucose POC Glucose 124 H Lactic Acid Calcium Ionized Calcium Magnesium 5.90 H AST ALT Alkaline Phosphatase Lactate Dehydrogenase NT-Pro-B Natriuret Pep Total Protein Albumin Arterial Blood Glucose 156 H Arterial Blood Ionized Calcium 4.2 L Urine WBC (Auto) Crossmatch 10/07/20 10/07/20 10/07/20 04:06 05:45 07:05 WBC 19.2 H RBC 3.57 L Hgb Hct MCV MCH MCHC 35 H RDW 17.1 H Plt Count 129 L Lymph % (Auto) [place] % (Auto) Lymph # (Auto) [place] # (Auto) Seg Neutrophils % Seg Neuts % (Manual) 94.0 H Lymphocytes % (Manual) 6.0 L Monocytes % (Manual) Nucleated RBC % Seg Neutrophils # Seg Neutrophils # Man 18.0 H Lymphocytes # (Manual) Monocytes # (Manual) PT INR APTT Fibrinogen D-Dimer ABG pH POC ABG pCO2 POC ABG pO2 ABG pO2 ABG HCO3 ABG Base Excess ABG Hemoglobin ABG Oxyhemoglobin ABG Sodium ABG Potassium ABG Chloride ABG Glucose VBG pH Oxyhemoglobin Carboxyhemoglobin Sodium Potassium Chloride Carbon Dioxide BUN Creatinine Glucose POC Glucose 135 H 149 H Lactic Acid Calcium Ionized Calcium Magnesium AST ALT Alkaline Phosphatase Lactate Dehydrogenase NT-Pro-B Natriuret Pep Total Protein Albumin Arterial Blood Glucose Arterial Blood Ionized Calcium Urine WBC (Auto) Crossmatch 10/07/20 10/07/20 10/07/20 07:05 07:05 12:21 WBC RBC Hgb Hct MCV MCH MCHC RDW Plt Count Lymph % (Auto) [place] % (Auto) Lymph # (Auto) [place] # (Auto) Seg Neutrophils % Seg Neuts % (Manual) Lymphocytes % (Manual) Monocytes % (Manual) Nucleated RBC % Seg Neutrophils # Seg Neutrophils # Man Lymphocytes # (Manual) Monocytes # (Manual) PT INR APTT Fibrinogen D-Dimer ABG pH POC ABG pCO2 POC ABG pO2 ABG pO2 ABG HCO3 ABG Base Excess ABG Hemoglobin ABG Oxyhemoglobin ABG Sodium ABG Potassium ABG Chloride ABG Glucose VBG pH Oxyhemoglobin Carboxyhemoglobin Sodium Potassium Chloride Carbon Dioxide BUN 21 H Creatinine 1.7 H Glucose 171 H POC Glucose 124 H Lactic Acid Calcium 7.4 L Ionized Calcium Magnesium 6.10 H AST 245 H ALT 147 H Alkaline Phosphatase Lactate Dehydrogenase NT-Pro-B Natriuret Pep Total Protein 5.3 L Albumin 2.8 L Arterial Blood Glucose Arterial Blood Ionized Calcium Urine WBC (Auto) Crossmatch 10/07/20 10/07/20 10/07/20 19:52 21:00 21:50 WBC RBC Hgb Hct MCV MCH MCHC RDW Plt Count Lymph % (Auto) [place] % (Auto) Lymph # (Auto) [place] # (Auto) Seg Neutrophils % Seg Neuts % (Manual) Lymphocytes % (Manual) Monocytes % (Manual) Nucleated RBC % Seg Neutrophils # Seg Neutrophils # Man Lymphocytes # (Manual) Monocytes # (Manual) PT INR APTT Fibrinogen D-Dimer ABG pH POC ABG pCO2 POC ABG pO2 ABG pO2 ABG HCO3 ABG Base Excess ABG Hemoglobin ABG Oxyhemoglobin ABG Sodium ABG Potassium ABG Chloride ABG Glucose VBG pH Oxyhemoglobin Carboxyhemoglobin Sodium Potassium Chloride Carbon Dioxide BUN Creatinine Glucose POC Glucose 193 H 138 H Lactic Acid Calcium Ionized Calcium 4.4 L Magnesium AST ALT Alkaline Phosphatase Lactate Dehydrogenase NT-Pro-B Natriuret Pep Total Protein Albumin Arterial Blood Glucose Arterial Blood Ionized Calcium Urine WBC (Auto) Crossmatch 10/07/20 10/08/20 10/08/20 23:41 04:20 05:30 WBC RBC Hgb Hct MCV MCH MCHC RDW Plt Count Lymph % (Auto) [place] % (Auto) Lymph # (Auto) [place] # (Auto) Seg Neutrophils % Seg Neuts % (Manual) Lymphocytes % (Manual) Monocytes % (Manual) Nucleated RBC % Seg Neutrophils # Seg Neutrophils # Man Lymphocytes # (Manual) Monocytes # (Manual) PT INR APTT Fibrinogen D-Dimer ABG pH 7.467 H POC ABG pCO2 POC ABG pO2 189.8 H ABG pO2 ABG HCO3 ABG Base Excess ABG Hemoglobin 10.8 L ABG Oxyhemoglobin ABG Sodium ABG Potassium ABG Chloride ABG Glucose 133 H VBG pH Oxyhemoglobin Carboxyhemoglobin Sodium Potassium Chloride Carbon Dioxide BUN Creatinine Glucose POC Glucose 118 H 114 H Lactic Acid Calcium Ionized Calcium Magnesium AST ALT Alkaline Phosphatase Lactate Dehydrogenase NT-Pro-B Natriuret Pep Total Protein Albumin Arterial Blood Glucose 133 H Arterial Blood Ionized Calcium 4.2 L Urine WBC (Auto) Crossmatch 10/08/20 10/08/20 10/08/20 05:43 06:42 06:42 WBC 23.6 H RBC 3.54 L Hgb Hct MCV MCH MCHC RDW 17.8 H Plt Count Lymph % (Auto) [place] % (Auto) Lymph # (Auto) [place] # (Auto) Seg Neutrophils % Seg Neuts % (Manual) 93.0 H Lymphocytes % (Manual) 3.0 L Monocytes % (Manual) Nucleated RBC % 1.0 H Seg Neutrophils # Seg Neutrophils # Man 21.9 H Lymphocytes # (Manual) 0.7 L Monocytes # (Manual) 0.9 H PT INR APTT Fibrinogen D-Dimer ABG pH POC ABG pCO2 POC ABG pO2 ABG pO2 ABG HCO3 ABG Base Excess ABG Hemoglobin ABG Oxyhemoglobin ABG Sodium ABG Potassium ABG Chloride ABG Glucose VBG pH Oxyhemoglobin Carboxyhemoglobin Sodium Potassium Chloride Carbon Dioxide BUN 28 H Creatinine 1.6 H Glucose 141 H POC Glucose 126 H Lactic Acid Calcium 7.6 L Ionized Calcium Magnesium AST 162 H ALT 103 H Alkaline Phosphatase Lactate Dehydrogenase NT-Pro-B Natriuret Pep Total Protein 5.4 L Albumin 2.7 L Arterial Blood Glucose Arterial Blood Ionized Calcium Urine WBC (Auto) Crossmatch 10/08/20 10/08/20 10/08/20 11:20 16:05 20:14 WBC RBC Hgb Hct MCV MCH MCHC RDW Plt Count Lymph % (Auto) [place] % (Auto) Lymph # (Auto) [place] # (Auto) Seg Neutrophils % Seg Neuts % (Manual) Lymphocytes % (Manual) Monocytes % (Manual) Nucleated RBC % Seg Neutrophils # Seg Neutrophils # Man Lymphocytes # (Manual) Monocytes # (Manual) PT INR APTT Fibrinogen D-Dimer ABG pH POC ABG pCO2 POC ABG pO2 ABG pO2 ABG HCO3 ABG Base Excess ABG Hemoglobin ABG Oxyhemoglobin ABG Sodium ABG Potassium ABG Chloride ABG Glucose VBG pH Oxyhemoglobin Carboxyhemoglobin Sodium Potassium Chloride Carbon Dioxide BUN Creatinine Glucose POC Glucose 127 H 172 H 147 H Lactic Acid Calcium Ionized Calcium Magnesium AST ALT Alkaline Phosphatase Lactate Dehydrogenase NT-Pro-B Natriuret Pep Total Protein Albumin Arterial Blood Glucose Arterial Blood Ionized Calcium Urine WBC (Auto) Crossmatch 10/08/20 10/08/20 10/09/20 21:27 23:24 02:10 WBC RBC Hgb Hct MCV MCH MCHC RDW Plt Count Lymph % (Auto) [place] % (Auto) Lymph # (Auto) [place] # (Auto) Seg Neutrophils % Seg Neuts % (Manual) Lymphocytes % (Manual) Monocytes % (Manual) Nucleated RBC % Seg Neutrophils # Seg Neutrophils # Man Lymphocytes # (Manual) Monocytes # (Manual) PT INR APTT Fibrinogen D-Dimer ABG pH POC ABG pCO2 POC ABG pO2 ABG pO2 ABG HCO3 ABG Base Excess ABG Hemoglobin ABG Oxyhemoglobin ABG Sodium ABG Potassium ABG Chloride ABG Glucose VBG pH Oxyhemoglobin Carboxyhemoglobin Sodium Potassium Chloride Carbon Dioxide BUN Creatinine Glucose POC Glucose 140 H 135 H 111 H Lactic Acid Calcium Ionized Calcium Magnesium AST ALT Alkaline Phosphatase Lactate Dehydrogenase NT-Pro-B Natriuret Pep Total Protein Albumin Arterial Blood Glucose Arterial Blood Ionized Calcium Urine WBC (Auto) Crossmatch 10/09/20 10/09/20 10/09/20 03:44 04:39 05:46 WBC 19.7 H RBC 3.51 L Hgb Hct MCV MCH MCHC RDW 17.7 H Plt Count Lymph % (Auto) [place] % (Auto) Lymph # (Auto) [place] # (Auto) Seg Neutrophils % Seg Neuts % (Manual) 86.0 H Lymphocytes % (Manual) 4.0 L Monocytes % (Manual) 9.0 H Nucleated RBC % Seg Neutrophils # Seg Neutrophils # Man 16.9 H Lymphocytes # (Manual) 0.8 L Monocytes # (Manual) 1.8 H PT INR APTT Fibrinogen D-Dimer ABG pH 7.513 H POC ABG pCO2 POC ABG pO2 33.6 L ABG pO2 ABG HCO3 ABG Base Excess ABG Hemoglobin 11.1 L ABG Oxyhemoglobin 70.2 L ABG Sodium ABG Potassium 3.2 L ABG Chloride 108.0 H ABG Glucose 108 H VBG pH Oxyhemoglobin Carboxyhemoglobin Sodium Potassium Chloride Carbon Dioxide BUN Creatinine Glucose POC Glucose 109 H Lactic Acid Calcium Ionized Calcium Magnesium AST ALT Alkaline Phosphatase Lactate Dehydrogenase NT-Pro-B Natriuret Pep Total Protein Albumin Arterial Blood Glucose 108 H Arterial Blood Ionized Calcium 4.3 L Urine WBC (Auto) Crossmatch 10/09/20 10/10/20 10/10/20 05:46 04:00 04:00 WBC 18.4 H RBC Hgb Hct MCV MCH MCHC RDW 17.5 H Plt Count Lymph % (Auto) 9.8 L [place] % (Auto) 8.8 H Lymph # (Auto) [place] # (Auto) 1.6 H Seg Neutrophils % 80.0 H Seg Neuts % (Manual) Lymphocytes % (Manual) Monocytes % (Manual) Nucleated RBC % Seg Neutrophils # 14.7 H Seg Neutrophils # Man Lymphocytes # (Manual) Monocytes # (Manual) PT INR APTT Fibrinogen D-Dimer ABG pH POC ABG pCO2 POC ABG pO2 ABG pO2 ABG HCO3 ABG Base Excess ABG Hemoglobin ABG Oxyhemoglobin ABG Sodium ABG Potassium ABG Chloride ABG Glucose VBG pH Oxyhemoglobin Carboxyhemoglobin Sodium 146 H Potassium 3.2 L 2.9 L* Chloride 108.9 H 112.6 H Carbon Dioxide BUN 34 H 28 H Creatinine 1.4 H 1.3 H Glucose 109 H 101 H POC Glucose Lactic Acid Calcium 7.6 L 7.8 L Ionized Calcium Magnesium AST 137 H 122 H ALT 99 H 81 H Alkaline Phosphatase Lactate Dehydrogenase NT-Pro-B Natriuret Pep Total Protein 5.1 L 5.2 L Albumin 2.6 L 2.7 L Arterial Blood Glucose Arterial Blood Ionized Calcium Urine WBC (Auto) Crossmatch 10/10/20 10/10/20 10/11/20 04:42 09:50 00:44 WBC RBC Hgb Hct MCV MCH MCHC RDW Plt Count Lymph % (Auto) [place] % (Auto) Lymph # (Auto) [place] # (Auto) Seg Neutrophils % Seg Neuts % (Manual) Lymphocytes % (Manual) Monocytes % (Manual) Nucleated RBC % Seg Neutrophils # Seg Neutrophils # Man Lymphocytes # (Manual) Monocytes # (Manual) PT INR APTT Fibrinogen D-Dimer ABG pH 7.534 H POC ABG pCO2 POC ABG pO2 ABG pO2 95.2 H ABG HCO3 ABG Base Excess ABG Hemoglobin 11.3 L ABG Oxyhemoglobin ABG Sodium ABG Potassium ABG Chloride ABG Glucose VBG pH Oxyhemoglobin Carboxyhemoglobin Sodium Potassium Chloride Carbon Dioxide BUN Creatinine Glucose POC Glucose 109 H 106 H Lactic Acid Calcium Ionized Calcium Magnesium AST ALT Alkaline Phosphatase Lactate Dehydrogenase NT-Pro-B Natriuret Pep Total Protein Albumin Arterial Blood Glucose Arterial Blood Ionized Calcium Urine WBC (Auto) Crossmatch 10/11/20 10/11/20 10/11/20 04:00 04:00 06:08 WBC 27.0 H RBC Hgb Hct MCV MCH MCHC RDW 17.7 H Plt Count Lymph % (Auto) 6.3 L [place] % (Auto) Lymph # (Auto) [place] # (Auto) 1.5 H Seg Neutrophils % 87.1 H Seg Neuts % (Manual) Lymphocytes % (Manual) Monocytes % (Manual) Nucleated RBC % Seg Neutrophils # 23.5 H Seg Neutrophils # Man Lymphocytes # (Manual) Monocytes # (Manual) PT INR APTT Fibrinogen D-Dimer ABG pH POC ABG pCO2 POC ABG pO2 ABG pO2 ABG HCO3 ABG Base Excess ABG Hemoglobin ABG Oxyhemoglobin ABG Sodium ABG Potassium ABG Chloride ABG Glucose VBG pH Oxyhemoglobin Carboxyhemoglobin Sodium Potassium 3.2 L Chloride 110.4 H Carbon Dioxide 19 L BUN 22 H Creatinine Glucose 116 H POC Glucose 107 H Lactic Acid Calcium 7.7 L Ionized Calcium Magnesium 1.60 L AST ALT Alkaline Phosphatase Lactate Dehydrogenase NT-Pro-B Natriuret Pep Total Protein Albumin Arterial Blood Glucose Arterial Blood Ionized Calcium Urine WBC (Auto) Crossmatch 10/11/20 10/11/20 10/12/20 11:41 13:26 03:52 WBC RBC Hgb Hct MCV MCH MCHC RDW Plt Count Lymph % (Auto) [place] % (Auto) Lymph # (Auto) [place] # (Auto) Seg Neutrophils % Seg Neuts % (Manual) Lymphocytes % (Manual) Monocytes % (Manual) Nucleated RBC % Seg Neutrophils # Seg Neutrophils # Man Lymphocytes # (Manual) Monocytes # (Manual) PT INR APTT Fibrinogen D-Dimer ABG pH POC ABG pCO2 POC ABG pO2 ABG pO2 ABG HCO3 ABG Base Excess ABG Hemoglobin ABG Oxyhemoglobin ABG Sodium ABG Potassium ABG Chloride ABG Glucose VBG pH Oxyhemoglobin Carboxyhemoglobin Sodium Potassium Chloride Carbon Dioxide BUN Creatinine Glucose POC Glucose 116 H 114 H Lactic Acid Calcium Ionized Calcium Magnesium AST ALT Alkaline Phosphatase Lactate Dehydrogenase NT-Pro-B Natriuret Pep Total Protein Albumin Arterial Blood Glucose Arterial Blood Ionized Calcium Urine WBC (Auto) 24.0 H Crossmatch 10/12/20 10/12/20 10/12/20 04:24 14:47 21:33 WBC RBC Hgb Hct MCV MCH MCHC RDW Plt Count Lymph % (Auto) [place] % (Auto) Lymph # (Auto) [place] # (Auto) Seg Neutrophils % Seg Neuts % (Manual) Lymphocytes % (Manual) Monocytes % (Manual) Nucleated RBC % Seg Neutrophils # Seg Neutrophils # Man Lymphocytes # (Manual) Monocytes # (Manual) PT INR APTT Fibrinogen D-Dimer ABG pH POC ABG pCO2 POC ABG pO2 ABG pO2 ABG HCO3 ABG Base Excess ABG Hemoglobin ABG Oxyhemoglobin ABG Sodium ABG Potassium ABG Chloride ABG Glucose VBG pH Oxyhemoglobin Carboxyhemoglobin Sodium Potassium Chloride 109.9 H Carbon Dioxide 13 L BUN 18 H Creatinine Glucose 119 H POC Glucose 107 H Lactic Acid Calcium 7.6 L Ionized Calcium Magnesium 1.60 L AST ALT Alkaline Phosphatase Lactate Dehydrogenase NT-Pro-B Natriuret Pep Total Protein Albumin Arterial Blood Glucose Arterial Blood Ionized Calcium Urine WBC (Auto) Crossmatch 10/12/20 10/12/20 Unknown Unknown WBC 24.3 H RBC 3.38 L Hgb 9.8 L Hct MCV MCH MCHC RDW 18.7 H Plt Count Lymph % (Auto) [place] % (Auto) Lymph # (Auto) [place] # (Auto) Seg Neutrophils % Seg Neuts % (Manual) 93.5 H Lymphocytes % (Manual) 4.5 L Monocytes % (Manual) Nucleated RBC % Seg Neutrophils # Seg Neutrophils # Man 22.7 H Lymphocytes # (Manual) 1.1 L Monocytes # (Manual) PT INR APTT Fibrinogen D-Dimer ABG pH POC ABG pCO2 POC ABG pO2 ABG pO2 ABG HCO3 ABG Base Excess ABG Hemoglobin ABG Oxyhemoglobin ABG Sodium ABG Potassium ABG Chloride ABG Glucose VBG pH Oxyhemoglobin Carboxyhemoglobin Sodium 135 L D Potassium 3.1 L Chloride Carbon Dioxide 17 L BUN Creatinine Glucose 510 H* POC Glucose Lactic Acid Calcium 7.2 L Ionized Calcium Magnesium AST ALT Alkaline Phosphatase Lactate Dehydrogenase NT-Pro-B Natriuret Pep Total Protein Albumin Arterial Blood Glucose Arterial Blood Ionized Calcium Urine WBC (Auto) Crossmatch
--- NOTE | 2020-10-13 07:34 | Progress Note ---
Assessment and Plan 30 y/o female with Eclampsia, s/p emergent section with DIC, acute respiratory failure and worsening renal function. 10/12/2020: Patient seen on 10/12 but note entered late. Formal neurology consult today. Hold all sedation if possible and only use precedex. CM to find out if there is truly a or if the decisions would fall on mother as I do not know the ages of her children but I don't think they are of age to make decisions. Guarded prognosis given mental state. 10/08/2020: Will start patient on precedex today. Plan is to wean off fent drip. Will increase buspar to BID. Need to see patient on as little sedation a s possible to determine neurological status. EEG has still not been read. Mag stopped yesterday. Largest concern now is neurologic function. 10/07/2020: Head CT unremarkable. Await EEG to be read. Will stop mag Drip. If seizures occur then will load with Keppra and start BID dosing of this. Appreciate OB note. Continue D10 as sugars are still not severely elevated until feeds are at goal. PRN ativan present as well. Will add dilaudid for pain control. Increased BB to TID and added PRN hydralazine 10/06/2020: Stat Head CT today. Likely needs EEG. Will order. Continue Mag drip and follow up levels. Continue feeds. Continue to wean FiO2 as tolerated. Hold sedatives but can give PRN ativan as needed for seizure activity. Continue D10 as Tube feeds are not at goal yet. Guarded prognosis with mental state. 10/05/2020: Feed today. Stop Albumin and Abx. Will stop D10 once feeds start but will continue q2 hour FSBS until 3 consecutive >180. H/H stable. Will continue to aggressively wean FiO2. Patient has a 6.5 tube that will likely impede PSV trials given her size so will attempt to change out. Also will restart her home meds for anxiety and chronic migraine therapy. Prognosis is still guarded but promising given her hemodynamic stability. Continue chowdhury for accurate urine out put. 10/04/2020: Much improved today. Still very ill however. Down to just one pressor. Still with good urine output. Await chemistry results from this am. Likely can stop Bicarb drip given improvement in pH but would like to see bicarb on blood work. Agree with continued transfusion of blood products. Needs fibrinongen levels as well as repeat coags. I cannot see the standing orders on my screen so will call down to lab and let them know what's needed. I know she has had at leas 2 cryo's but I am not exactly sure if the count is accurate in the computer in regards to PRBC's and FFP's. Platelets lower this am but still greater than 30K. Continue chowdhury for I/O measurement. Will start to wean FiO2 on vent. CXR looks like edema but oxygenation is stable right now. Resuscitation is the most important thing right now. Will continue abx therapy at least 24 more hours. Prognosis is still very guarded but patient showing signs of improvement. 1. CV-Extremely volume deplete as well as intrasvascular depletion. Will continue to bolus with LR and saline as needed. Will add Albumin to help with intravascular volume. Spoke with OB attending over phone yesterday. No acute indication for steroids at this time. Serial H/H's given maximum pressor re quirements. Will transfuse to keep up with AVINASH drain and help with weaning. Severely acidotic but improving. Likely adding to pressor requirement. GOAL is map of 65 and will wean accordingly. Will start to wean Sohail first. Ordered art line as well. 2. Heme-DIC secondary to Eclampsia, possible sepsis but white count could be stress related. Will continue to transfuse PRBC's and FFP with Cryo as needed. Follow Fibrinogen levels. Tele Heme has been consulted and note reviewed. Will give one cryo for every 6 units of PRBC's transfused. has gotten one cryo, awaiting the other to thaw out. Plts at 72K right now. Hold on further transfusion. May need to consider Factor VII if execessive bleeding continues. Will also put on broad spec abx therapy incase of possible sepsis causing DIC. Hopeful with correction of coaguloapthy she will improve. 3. Very very guarded prognosis. Will continue aggressive resuscitation. Family to come visit given exceptional case and extremely guarded prognosis. CCT 31 minutes. Subjective Date of service: 10/12/20 Principal diagnosis: Eclampsia/HELLP Syndrome, ADOLPH, DIC; s/p , s/p supracervical hyst Interval history: Needs formal neurology evaluation. EGG was read from several days ago before the holiday. Showed no status but patient is still unresponsive. Objective Vital Signs - 12hr 10/12/20 10/12/20 10/12/20 19:30 19:45 20:00 Temperature 99.3 F Pulse Rate 77 85 81 Pulse Rate [ Anterior Bilateral Throughout] Pulse Rate [ 83 From Monitor] Respiratory 26 H 26 H 25 H Rate Respiratory Rate [Anterior Bilateral Throughout] Blood Pressure 139/88 136/84 137/80 O2 Sat by Pulse 99 98 98 Oximetry 10/12/20 10/12/20 10/12/20 20:04 20:15 20:30 Temperature Pulse Rate 90 83 80 Pulse Rate [ Anterior Bilateral Throughout] Pulse Rate [ From Monitor] Respiratory 25 H 24 Rate Respiratory Rate [Anterior Bilateral Throughout] Blood Pressure 137/80 130/63 116/65 O2 Sat by Pulse 100 98 98 Oximetry 10/12/20 10/12/20 10/12/20 20:45 21:00 21:15 Temperature Pulse Rate 81 85 84 Pulse Rate [ Anterior Bilateral Throughout] Pulse Rate [ From Monitor] Respiratory 26 H 29 H 24 Rate Respiratory Rate [Anterior Bilateral Throughout] Blood Pressure 116/69 120/70 131/83 O2 Sat by Pulse 98 98 Oximetry 10/12/20 10/12/20 10/12/20 21:30 21:45 21:51 Temperature Pulse Rate 83 85 82 Pulse Rate [ Anterior Bilateral Throughout] Pulse Rate [ From Monitor] Respiratory 25 H 25 H Rate Respiratory Rate [Anterior Bilateral Throughout] Blood Pressure 119/74 127/73 127/73 O2 Sat by Pulse 99 97 Oximetry 10/12/20 10/12/20 10/12/20 22:00 22:15 22:30 Temperature Pulse Rate 81 81 78 Pulse Rate [ Anterior Bilateral Throughout] Pulse Rate [ From Monitor] Respiratory 25 H 23 23 Rate Respiratory Rate [Anterior Bilateral Throughout] Blood Pressure 128/68 129/75 129/77 O2 Sat by Pulse 97 98 98 Oximetry 10/12/20 10/12/20 10/12/20 22:45 23:00 23:15 Temperature Pulse Rate 78 81 78 Pulse Rate [ Anterior Bilateral Throughout] Pulse Rate [ From Monitor] Respiratory 23 Rate Respiratory Rate [Anterior Bilateral Throughout] Blood Pressure 132/74 125/83 127/74 O2 Sat by Pulse 98 98 99 Oximetry 10/12/20 10/12/20 10/13/20 23:30 23:45 00:00 Temperature 97.2 F L Pulse Rate 78 82 81 Pulse Rate [ Anterior Bilateral Throughout] Pulse Rate [ 81 From Monitor] Respiratory 24 25 H 26 H Rate Respiratory Rate [Anterior Bilateral Throughout] Blood Pressure 125/73 119/80 126/80 O2 Sat by Pulse 98 98 100 Oximetry 10/13/20 10/13/20 10/13/20 00:09 00:15 00:21 Temperature Pulse Rate 79 81 Pulse Rate [ Anterior Bilateral Throughout] Pulse Rate [ From Monitor] Respiratory 24 25 H Rate Respiratory Rate [Anterior Bilateral Throughout] Blood Pressure 126/80 129/80 129/80 O2 Sat by Pulse 100 99 100 Oximetry 10/13/20 10/13/20 10/13/20 00:28 00:30 00:45 Temperature Pulse Rate 86 83 Pulse Rate [ 84 Anterior Bilateral Throughout] Pulse Rate [ From Monitor] Respiratory 27 H 23 Rate Respiratory 24 Rate [Anterior Bilateral Throughout] Blood Pressure 131/89 135/76 O2 Sat by Pulse 99 97 Oximetry 10/13/20 10/13/20 10/13/20 01:00 01:15 01:30 Temperature Pulse Rate 84 89 87 Pulse Rate [ Anterior Bilateral Throughout] Pulse Rate [ From Monitor] Respiratory 23 27 H 25 H Rate Respiratory Rate [Anterior Bilateral Throughout] Blood Pressure 134/79 139/84 142/77 O2 Sat by Pulse 100 99 97 Oximetry 10/13/20 10/13/20 10/13/20 01:45 02:00 02:15 Temperature Pulse Rate 84 84 86 Pulse Rate [ Anterior Bilateral Throughout] Pulse Rate [ From Monitor] Respiratory 26 H 23 24 Rate Respiratory Rate [Anterior Bilateral Throughout] Blood Pressure 135/82 127/78 125/74 O2 Sat by Pulse 97 97 97 Oximetry 10/13/20 10/13/20 10/13/20 02:30 02:45 03:00 Temperature Pulse Rate 86 86 84 Pulse Rate [ Anterior Bilateral Throughout] Pulse Rate [ From Monitor] Respiratory 23 25 H 24 Rate Respiratory Rate [Anterior Bilateral Throughout] Blood Pressure 133/76 130/76 133/77 O2 Sat by Pulse 98 98 97 Oximetry 10/13/20 10/13/20 10/13/20 03:15 03:30 03:45 Temperature Pulse Rate 85 85 85 Pulse Rate [ Anterior Bilateral Throughout] Pulse Rate [ From Monitor] Respiratory 25 H 26 H 25 H Rate Respiratory Rate [Anterior Bilateral Throughout] Blood Pressure 134/82 128/81 134/79 O2 Sat by Pulse 97 97 97 Oximetry 10/13/20 10/13/20 10/13/20 03:47 04:00 04:02 Temperature 99.8 F H Pulse Rate 85 82 Pulse Rate [ Anterior Bilateral Throughout] Pulse Rate [ 82 From Monitor] Respiratory 26 H Rate Respiratory Rate [Anterior Bilateral Throughout] Blood Pressure 129/81 129/81 O2 Sat by Pulse 97 100 Oximetry 10/13/20 10/13/20 10/13/20 04:15 04:30 04:45 Temperature Pulse Rate 84 85 83 Pulse Rate [ Anterior Bilateral Throughout] Pulse Rate [ From Monitor] Respiratory 24 25 H 25 H Rate Respiratory Rate [Anterior Bilateral Throughout] Blood Pressure 131/78 135/86 136/81 O2 Sat by Pulse 97 98 97 Oximetry 10/13/20 10/13/20 10/13/20 05:00 05:15 05:30 Temperature Pulse Rate 85 84 86 Pulse Rate [ Anterior Bilateral Throughout] Pulse Rate [ From Monitor] Respiratory 26 H 25 H 26 H Rate Respiratory Rate [Anterior Bilateral Throughout] Blood Pressure 139/84 148/86 141/88 O2 Sat by Pulse 100 97 98 Oximetry 10/13/20 10/13/20 10/13/20 05:45 06:00 06:15 Temperature Pulse Rate 92 H 85 88 Pulse Rate [ Anterior Bilateral Throughout] Pulse Rate [ From Monitor] Respiratory 24 24 25 H Rate Respiratory Rate [Anterior Bilateral Throughout] Blood Pressure 127/79 129/83 135/87 O2 Sat by Pulse 96 97 98 Oximetry 10/13/20 10/13/20 10/13/20 06:30 06:45 07:00 Temperature Pulse Rate 86 89 85 Pulse Rate [ Anterior Bilateral Throughout] Pulse Rate [ From Monitor] Respiratory 25 H 27 H 24 Rate Respiratory Rate [Anterior Bilateral Throughout] Blood Pressure 135/87 129/90 135/81 O2 Sat by Pulse 95 96 96 Oximetry 10/13/20 07:27 Temperature Pulse Rate 80 Pulse Rate [ Anterior Bilateral Throughout] Pulse Rate [ From Monitor] Respiratory Rate Respiratory Rate [Anterior Bilateral Throughout] Blood Pressure O2 Sat by Pulse 100 Oximetry Constitutional: comatose, other (critically ill on ventilator) Eyes: non-icteric ENT: oropharynx moist, other (orally intubated and not sedated) Neck: other (large in cirumference) Effort: normal Ascultation: Bilateral: clear, diminished breath sounds, other (coarse BS bilaterally w/ mild faint wheezes) Percussion: Bilateral: not dull Cardiovascular: regular rate and rhythm, other (no mrg) Gastrointestinal: normoactive bowel sounds, soft, other (post surgical changes with drain on the left side) Extremities: no cyanosis, pink and warm, anasarca Neurologic: other (unresponsive, not following commands, not tracking) Psychiatric: other (unable to assess) CBC and BMP: 10/12/20 Unknown 10/12/20 Unknown ABG, PT/INR, D-dimer: ABG ABG pH 7.534 pH Units (7.350-7.450) H 10/10/20 04:42 POC ABG pCO2 33.1 mmHg (32.0-48.0) 10/09/20 04:39 ABG pCO2 25.0 mm Hg 10/10/20 04:42 POC ABG pO2 33.6 mmHg (83-108) L 10/09/20 04:39 ABG pO2 95.2 mm Hg (80.0-90.0) H 10/10/20 04:42 POC ABG HCO3 26 10/09/20 04:39 ABG O2 Saturation 97.9 % (95.0-99.0) 10/10/20 04:42 PT/INR, D-dimer PT 13.0 Sec. (12.2-14.9) 10/05/20 05:00 INR 1.00 (0.87-1.13) 10/05/20 05:00 D-Dimer > 80081 ng/mlDDU (0-234) H 10/04/20 10:00 Abnormal lab findings: Abnormal Labs 10/02/20 10/02/20 10/02/20 12:03 12:18 12:18 WBC 14.9 H RBC Hgb 9.1 L Hct MCV MCH 22 L MCHC 28 L RDW 17.6 H Plt Count 102 L Lymph % (Auto) [place] % (Auto) Lymph # (Auto) [place] # (Auto) Seg Neutrophils % Seg Neuts % (Manual) 36.0 L Lymphocytes % (Manual) 49.0 H Monocytes % (Manual) Nucleated RBC % 6.0 H Seg Neutrophils # Seg Neutrophils # Man Lymphocytes # (Manual) 7.3 H Monocytes # (Manual) PT INR APTT Fibrinogen D-Dimer ABG pH POC ABG pCO2 POC ABG pO2 ABG pO2 ABG HCO3 ABG Base Excess ABG Hemoglobin ABG Oxyhemoglobin ABG Sodium ABG Potassium ABG Chloride ABG Glucose VBG pH Oxyhemoglobin Carboxyhemoglobin Sodium 134 L Potassium Chloride Carbon Dioxide 12 L BUN 6 L Creatinine Glucose 390 H POC Glucose 451 H Lactic Acid Calcium Ionized Calcium Magnesium AST 135 H ALT 85 H Alkaline Phosphatase 172 H Lactate Dehydrogenase 641 H NT-Pro-B Natriuret Pep Total Protein 5.4 L Albumin 2.3 L Arterial Blood Glucose Arterial Blood Ionized Calcium Urine WBC (Auto) Crossmatch 10/02/20 10/02/20 10/02/20 12:50 13:05 13:05 WBC 38.6 H RBC Hgb 8.9 L Hct 29.0 L MCV 73 L MCH 22 L MCHC RDW 17.2 H Plt Count Lymph % (Auto) [place] % (Auto) Lymph # (Auto) [place] # (Auto) Seg Neutrophils % Seg Neuts % (Manual) Lymphocytes % (Manual) Monocytes % (Manual) Nucleated RBC % 2.0 H Seg Neutrophils # Seg Neutrophils # Man 20.1 H Lymphocytes # (Manual) 10.4 H Monocytes # (Manual) 2.3 H PT INR APTT Fibrinogen D-Dimer ABG pH POC ABG pCO2 POC ABG pO2 ABG pO2 ABG HCO3 ABG Base Excess ABG Hemoglobin ABG Oxyhemoglobin ABG Sodium ABG Potassium ABG Chloride ABG Glucose VBG pH Oxyhemoglobin Carboxyhemoglobin Sodium Potassium Chloride Carbon Dioxide BUN Creatinine Glucose POC Glucose Lactic Acid Calcium Ionized Calcium Magnesium AST 184 H ALT 113 H Alkaline Phosphatase Lactate Dehydrogenase 769 H NT-Pro-B Natriuret Pep Total Protein Albumin Arterial Blood Glucose Arterial Blood Ionized Calcium Urine WBC (Auto) Crossmatch See Detail 10/02/20 10/02/20 10/02/20 16:25 16:35 16:35 WBC RBC Hgb Hct MCV MCH MCHC RDW Plt Count Lymph % (Auto) [place] % (Auto) Lymph # (Auto) [place] # (Auto) Seg Neutrophils % Seg Neuts % (Manual) Lymphocytes % (Manual) Monocytes % (Manual) Nucleated RBC % Seg Neutrophils # Seg Neutrophils # Man Lymphocytes # (Manual) Monocytes # (Manual) PT INR APTT Fibrinogen D-Dimer ABG pH 7.031 L* POC ABG pCO2 POC ABG pO2 ABG pO2 116.8 H ABG HCO3 12.7 L ABG Base Excess -16.9 L ABG Hemoglobin 7.8 L ABG Oxyhemoglobin ABG Sodium ABG Potassium ABG Chloride ABG Glucose VBG pH Oxyhemoglobin 94.9 L Carboxyhemoglobin Sodium Potassium Chloride Carbon Dioxide BUN Creatinine Glucose 403 H POC Glucose Lactic Acid 11.40 H* Calcium 6.3 L D Ionized Calcium Magnesium AST 70 H ALT Alkaline Phosphatase Lactate Dehydrogenase NT-Pro-B Natriuret Pep Total Protein 1.9 L D Albumin 1.2 L Arterial Blood Glucose Arterial Blood Ionized Calcium Urine WBC (Auto) Crossmatch 10/02/20 10/02/20 10/02/20 18:18 18:18 22:30 WBC 11.5 H RBC 2.06 L Hgb 5.5 L* D Hct 17.3 L* D MCV MCH 27 L MCHC RDW 19.5 H Plt Count 60 L Lymph % (Auto) [place] % (Auto) Lymph # (Auto) [place] # (Auto) Seg Neutrophils % Seg Neuts % (Manual) Lymphocytes % (Manual) 8.0 L Monocytes % (Manual) 8.0 H Nucleated RBC % 8.0 H Seg Neutrophils # Seg Neutrophils # Man Lymphocytes # (Manual) 0.9 L Monocytes # (Manual) 0.9 H PT 37.1 H INR 3.71 H APTT 135.8 H* Fibrinogen D-Dimer ABG pH 7.067 L* POC ABG pCO2 POC ABG pO2 ABG pO2 183.0 H ABG HCO3 14.1 L ABG Base Excess -15.1 L ABG Hemoglobin 7.7 L ABG Oxyhemoglobin ABG Sodium ABG Potassium ABG Chloride ABG Glucose VBG pH Oxyhemoglobin Carboxyhemoglobin Sodium Potassium Chloride Carbon Dioxide BUN Creatinine Glucose POC Glucose Lactic Acid Calcium Ionized Calcium Magnesium AST ALT Alkaline Phosphatase Lactate Dehydrogenase NT-Pro-B Natriuret Pep Total Protein Albumin Arterial Blood Glucose Arterial Blood Ionized Calcium Urine WBC (Auto) Crossmatch 10/02/20 10/02/20 10/03/20 Unknown Unknown 00:01 WBC RBC Hgb Hct MCV MCH MCHC RDW Plt Count Lymph % (Auto) [place] % (Auto) Lymph # (Auto) [place] # (Auto) Seg Neutrophils % Seg Neuts % (Manual) Lymphocytes % (Manual) Monocytes % (Manual) Nucleated RBC % Seg Neutrophils # Seg Neutrophils # Man Lymphocytes # (Manual) Monocytes # (Manual) PT 61.1 H INR 6.92 H* APTT 158.7 H* Fibrinogen < 60 L* D-Dimer > 11994 H ABG pH POC ABG pCO2 POC ABG pO2 ABG pO2 ABG HCO3 ABG Base Excess ABG Hemoglobin ABG Oxyhemoglobin ABG Sodium ABG Potassium ABG Chloride ABG Glucose VBG pH 6.949 L* Oxyhemoglobin Carboxyhemoglobin Sodium Potassium Chloride Carbon Dioxide BUN Creatinine Glucose POC Glucose 196 H Lactic Acid Calcium Ionized Calcium Magnesium AST ALT Alkaline Phosphatase Lactate Dehydrogenase NT-Pro-B Natriuret Pep Total Protein Albumin Arterial Blood Glucose Arterial Blood Ionized Calcium Urine WBC (Auto) Crossmatch 10/03/20 10/03/20 10/03/20 00:40 00:40 00:40 WBC RBC Hgb Hct MCV MCH MCHC RDW Plt Count Lymph % (Auto) [place] % (Auto) Lymph # (Auto) [place] # (Auto) Seg Neutrophils % Seg Neuts % (Manual) Lymphocytes % (Manual) Monocytes % (Manual) Nucleated RBC % Seg Neutrophils # Seg Neutrophils # Man Lymphocytes # (Manual) Monocytes # (Manual) PT 15.1 H INR 1.21 H APTT Fibrinogen D-Dimer ABG pH POC ABG pCO2 POC ABG pO2 ABG pO2 ABG HCO3 ABG Base Excess ABG Hemoglobin ABG Oxyhemoglobin ABG Sodium ABG Potassium ABG Chloride ABG Glucose VBG pH Oxyhemoglobin Carboxyhemoglobin Sodium 136 L Potassium Chloride Carbon Dioxide BUN Creatinine 1.6 H D Glucose 106 H POC Glucose Lactic Acid 5.60 H* Calcium 6.5 L Ionized Calcium Magnesium AST 232 H ALT 104 H Alkaline Phosphatase Lactate Dehydrogenase NT-Pro-B Natriuret Pep Total Protein 3.9 L D Albumin 2.4 L Arterial Blood Glucose Arterial Blood Ionized Calcium Urine WBC (Auto) Crossmatch 10/03/20 10/03/20 10/03/20 02:08 02:08 02:08 WBC 17.6 H RBC 3.27 L Hgb 9.9 L D Hct 29.9 L D MCV MCH MCHC RDW 16.5 H Plt Count 75 L Lymph % (Auto) [place] % (Auto) Lymph # (Auto) [place] # (Auto) Seg Neutrophils % Seg Neuts % (Manual) 76.0 H Lymphocytes % (Manual) Monocytes % (Manual) Nucleated RBC % 8.0 H Seg Neutrophils # Seg Neutrophils # Man 13.4 H Lymphocytes # (Manual) Monocytes # (Manual) PT INR APTT Fibrinogen D-Dimer ABG pH POC ABG pCO2 POC ABG pO2 ABG pO2 ABG HCO3 ABG Base Excess ABG Hemoglobin ABG Oxyhemoglobin ABG Sodium ABG Potassium ABG Chloride ABG Glucose VBG pH Oxyhemoglobin Carboxyhemoglobin Sodium Potassium Chloride Carbon Dioxide 19 L BUN Creatinine 1.4 H Glucose 306 H POC Glucose Lactic Acid 10.50 H* Calcium 6.4 L Ionized Calcium Magnesium AST ALT Alkaline Phosphatase Lactate Dehydrogenase NT-Pro-B Natriuret Pep Total Protein Albumin Arterial Blood Glucose Arterial Blood Ionized Calcium Urine WBC (Auto) Crossmatch 10/03/20 10/03/20 10/03/20 02:42 03:59 05:31 WBC RBC Hgb Hct MCV MCH MCHC RDW Plt Count Lymph % (Auto) [place] % (Auto) Lymph # (Auto) [place] # (Auto) Seg Neutrophils % Seg Neuts % (Manual) Lymphocytes % (Manual) Monocytes % (Manual) Nucleated RBC % Seg Neutrophils # Seg Neutrophils # Man Lymphocytes # (Manual) Monocytes # (Manual) PT INR APTT Fibrinogen D-Dimer ABG pH 7.144 L POC ABG pCO2 54.4 H POC ABG pO2 ABG pO2 ABG HCO3 ABG Base Excess ABG Hemoglobin 10.0 L ABG Oxyhemoglobin ABG Sodium ABG Potassium ABG Chloride 108.0 H ABG Glucose 306 H VBG pH Oxyhemoglobin Carboxyhemoglobin Sodium Potassium Chloride Carbon Dioxide BUN Creatinine Glucose POC Glucose 209 H Lactic Acid 9.20 H* Calcium Ionized Calcium Magnesium AST ALT Alkaline Phosphatase Lactate Dehydrogenase NT-Pro-B Natriuret Pep Total Protein Albumin Arterial Blood Glucose 306 H Arterial Blood Ionized Calcium 3.7 L Urine WBC (Auto) Crossmatch 10/03/20 10/03/20 10/03/20 09:00 09:00 09:00 WBC 27.4 H RBC 2.84 L Hgb 8.5 L Hct 25.1 L MCV MCH MCHC RDW 16.1 H Plt Count 72 L Lymph % (Auto) [place] % (Auto) Lymph # (Auto) [place] # (Auto) Seg Neutrophils % Seg Neuts % (Manual) Lymphocytes % (Manual) 11.0 L Monocytes % (Manual) Nucleated RBC % 3.0 H Seg Neutrophils # Seg Neutrophils # Man 18.4 H Lymphocytes # (Manual) Monocytes # (Manual) 1.9 H PT INR APTT Fibrinogen D-Dimer ABG pH POC ABG pCO2 POC ABG pO2 ABG pO2 ABG HCO3 ABG Base Excess ABG Hemoglobin ABG Oxyhemoglobin ABG Sodium ABG Potassium ABG Chloride ABG Glucose VBG pH Oxyhemoglobin Carboxyhemoglobin Sodium Potassium Chloride Carbon Dioxide BUN Creatinine 1.7 H Glucose 216 H POC Glucose Lactic Acid 9.20 H* Calcium 6.3 L Ionized Calcium Magnesium AST 331 H ALT 171 H Alkaline Phosphatase Lactate Dehydrogenase NT-Pro-B Natriuret Pep Total Protein 3.7 L Albumin 1.9 L Arterial Blood Glucose Arterial Blood Ionized Calcium Urine WBC (Auto) Crossmatch 10/03/20 10/03/20 10/03/20 11:20 11:46 11:50 WBC 28.7 H RBC 2.67 L Hgb 8.0 L Hct 23.7 L MCV MCH MCHC RDW 16.6 H Plt Count 76 L Lymph % (Auto) [place] % (Auto) Lymph # (Auto) [place] # (Auto) Seg Neutrophils % Seg Neuts % (Manual) Lymphocytes % (Manual) Monocytes % (Manual) Nucleated RBC % Seg Neutrophils # Seg Neutrophils # Man Lymphocytes # (Manual) Monocytes # (Manual) PT INR APTT Fibrinogen D-Dimer ABG pH POC ABG pCO2 POC ABG pO2 ABG pO2 ABG HCO3 ABG Base Excess ABG Hemoglobin ABG Oxyhemoglobin ABG Sodium ABG Potassium ABG Chloride ABG Glucose VBG pH Oxyhemoglobin Carboxyhemoglobin Sodium Potassium Chloride Carbon Dioxide BUN Creatinine Glucose POC Glucose 125 H Lactic Acid 8.00 H* Calcium Ionized Calcium Magnesium AST ALT Alkaline Phosphatase Lactate Dehydrogenase NT-Pro-B Natriuret Pep Total Protein Albumin Arterial Blood Glucose Arterial Blood Ionized Calcium Urine WBC (Auto) Crossmatch 10/03/20 10/04/20 10/04/20 11:50 00:40 00:40 WBC RBC Hgb 6.8 L Hct 19.4 L* MCV MCH MCHC RDW Plt Count 49 L Lymph % (Auto) [place] % (Auto) Lymph # (Auto) [place] # (Auto) Seg Neutrophils % Seg Neuts % (Manual) Lymphocytes % (Manual) Monocytes % (Manual) Nucleated RBC % Seg Neutrophils # Seg Neutrophils # Man Lymphocytes # (Manual) Monocytes # (Manual) PT INR APTT Fibrinogen D-Dimer ABG pH 7.244 L POC ABG pCO2 POC ABG pO2 ABG pO2 ABG HCO3 ABG Base Excess -4.5 L ABG Hemoglobin 7.3 L ABG Oxyhemoglobin ABG Sodium ABG Potassium ABG Chloride ABG Glucose VBG pH Oxyhemoglobin Carboxyhemoglobin Sodium Potassium Chloride Carbon Dioxide BUN Creatinine Glucose POC Glucose Lactic Acid Calcium Ionized Calcium Magnesium AST ALT Alkaline Phosphatase Lactate Dehydrogenase NT-Pro-B Natriuret Pep Total Protein Albumin Arterial Blood Glucose Arterial Blood Ionized Calcium Urine WBC (Auto) Crossmatch 10/04/20 10/04/20 10/04/20 03:53 10:00 10:00 WBC 14.6 H RBC 2.57 L Hgb 7.6 L Hct 22.5 L MCV MCH MCHC RDW 15.8 H Plt Count 38 L Lymph % (Auto) 7.7 L [place] % (Auto) Lymph # (Auto) 1.1 L [place] # (Auto) 0.9 H Seg Neutrophils % 85.6 H Seg Neuts % (Manual) Lymphocytes % (Manual) Monocytes % (Manual) Nucleated RBC % Seg Neutrophils # 12.5 H Seg Neutrophils # Man Lymphocytes # (Manual) Monocytes # (Manual) PT INR APTT Fibrinogen D-Dimer ABG pH POC ABG pCO2 POC ABG pO2 110.6 H ABG pO2 ABG HCO3 ABG Base Excess ABG Hemoglobin 6.7 L ABG Oxyhemoglobin ABG Sodium 132.0 L ABG Potassium ABG Chloride ABG Glucose 111 H VBG pH Oxyhemoglobin Carboxyhemoglobin Sodium 134 L D Potassium Chloride 97.6 L Carbon Dioxide BUN Creatinine 1.7 H Glucose POC Glucose Lactic Acid Calcium 6.3 L Ionized Calcium Magnesium AST 203 H ALT 81 H Alkaline Phosphatase Lactate Dehydrogenase NT-Pro-B Natriuret Pep Total Protein 3.9 L Albumin 2.3 L Arterial Blood Glucose 111 H Arterial Blood Ionized Calcium 3.5 L Urine WBC (Auto) Crossmatch 10/04/20 10/04/20 10/04/20 10:00 10:00 10:14 WBC RBC Hgb Hct MCV MCH MCHC RDW Plt Count Lymph % (Auto) [place] % (Auto) Lymph # (Auto) [place] # (Auto) Seg Neutrophils % Seg Neuts % (Manual) Lymphocytes % (Manual) Monocytes % (Manual) Nucleated RBC % Seg Neutrophils # Seg Neutrophils # Man Lymphocytes # (Manual) Monocytes # (Manual) PT INR APTT Fibrinogen D-Dimer > 79257 H ABG pH POC ABG pCO2 POC ABG pO2 ABG pO2 ABG HCO3 ABG Base Excess ABG Hemoglobin ABG Oxyhemoglobin ABG Sodium ABG Potassium ABG Chloride ABG Glucose VBG pH Oxyhemoglobin Carboxyhemoglobin Sodium Potassium Chloride Carbon Dioxide BUN Creatinine Glucose POC Glucose Lactic Acid 3.90 H* Calcium Ionized Calcium Magnesium AST ALT Alkaline Phosphatase Lactate Dehydrogenase NT-Pro-B Natriuret Pep 2788 H Total Protein Albumin Arterial Blood Glucose Arterial Blood Ionized Calcium Urine WBC (Auto) Crossmatch 10/04/20 10/04/20 10/04/20 14:00 14:00 18:00 WBC 15.7 H RBC 3.17 L Hgb 9.3 L 9.6 L Hct 27.2 L 28.0 L MCV MCH MCHC RDW 16.9 H Plt Count 41 L Lymph % (Auto) 8.6 L [place] % (Auto) Lymph # (Auto) [place] # (Auto) 0.9 H Seg Neutrophils % 85.4 H Seg Neuts % (Manual) Lymphocytes % (Manual) Monocytes % (Manual) Nucleated RBC % Seg Neutrophils # 13.4 H Seg Neutrophils # Man Lymphocytes # (Manual) Monocytes # (Manual) PT INR APTT Fibrinogen D-Dimer ABG pH POC ABG pCO2 POC ABG pO2 ABG pO2 ABG HCO3 ABG Base Excess ABG Hemoglobin ABG Oxyhemoglobin ABG Sodium ABG Potassium ABG Chloride ABG Glucose VBG pH Oxyhemoglobin Carboxyhemoglobin Sodium 133 L Potassium Chloride 96.4 L Carbon Dioxide BUN 18 H Creatinine 1.7 H Glucose POC Glucose Lactic Acid Calcium 6.3 L Ionized Calcium Magnesium AST ALT Alkaline Phosphatase Lactate Dehydrogenase NT-Pro-B Natriuret Pep Total Protein Albumin Arterial Blood Glucose Arterial Blood Ionized Calcium Urine WBC (Auto) Crossmatch 10/04/20 10/04/20 10/05/20 18:00 22:00 05:00 WBC 17.6 H RBC 3.34 L Hgb 9.9 L Hct 29.4 L MCV MCH MCHC RDW 17.1 H Plt Count 56 L Lymph % (Auto) 8.5 L [place] % (Auto) Lymph # (Auto) [place] # (Auto) 1.0 H Seg Neutrophils % 85.1 H Seg Neuts % (Manual) Lymphocytes % (Manual) Monocytes % (Manual) Nucleated RBC % Seg Neutrophils # 15.0 H Seg Neutrophils # Man Lymphocytes # (Manual) Monocytes # (Manual) PT INR APTT Fibrinogen D-Dimer ABG pH POC ABG pCO2 POC ABG pO2 ABG pO2 ABG HCO3 ABG Base Excess ABG Hemoglobin ABG Oxyhemoglobin ABG Sodium ABG Potassium ABG Chloride ABG Glucose VBG pH Oxyhemoglobin Carboxyhemoglobin Sodium 136 L Potassium Chloride Carbon Dioxide BUN 18 H Creatinine 1.7 H Glucose POC Glucose Lactic Acid 2.30 H* Calcium 6.6 L Ionized Calcium Magnesium AST ALT Alkaline Phosphatase Lactate Dehydrogenase NT-Pro-B Natriuret Pep Total Protein Albumin Arterial Blood Glucose Arterial Blood Ionized Calcium Urine WBC (Auto) Crossmatch 10/05/20 10/05/20 10/05/20 05:00 05:00 05:03 WBC RBC Hgb Hct MCV MCH MCHC RDW Plt Count Lymph % (Auto) [place] % (Auto) Lymph # (Auto) [place] # (Auto) Seg Neutrophils % Seg Neuts % (Manual) Lymphocytes % (Manual) Monocytes % (Manual) Nucleated RBC % Seg Neutrophils # Seg Neutrophils # Man Lymphocytes # (Manual) Monocytes # (Manual) PT INR APTT Fibrinogen D-Dimer ABG pH 7.458 H POC ABG pCO2 POC ABG pO2 ABG pO2 74.3 L ABG HCO3 27.5 H ABG Base Excess 3.4 H ABG Hemoglobin 10.0 L ABG Oxyhemoglobin ABG Sodium ABG Potassium ABG Chloride ABG Glucose VBG pH Oxyhemoglobin 94.9 L Carboxyhemoglobin Sodium Potassium Chloride Carbon Dioxide BUN 19 H Creatinine 1.8 H Glucose POC Glucose Lactic Acid Calcium 6.8 L Ionized Calcium 3.9 L Magnesium AST 225 H ALT 85 H Alkaline Phosphatase Lactate Dehydrogenase NT-Pro-B Natriuret Pep Total Protein 4.5 L Albumin 2.7 L Arterial Blood Glucose Arterial Blood Ionized Calcium Urine WBC (Auto) Crossmatch 10/05/20 10/05/20 10/05/20 10:10 15:00 19:40 WBC RBC Hgb Hct MCV MCH MCHC RDW Plt Count Lymph % (Auto) [place] % (Auto) Lymph # (Auto) [place] # (Auto) Seg Neutrophils % Seg Neuts % (Manual) Lymphocytes % (Manual) Monocytes % (Manual) Nucleated RBC % Seg Neutrophils # Seg Neutrophils # Man Lymphocytes # (Manual) Monocytes # (Manual) PT INR APTT Fibrinogen D-Dimer ABG pH POC ABG pCO2 POC ABG pO2 ABG pO2 ABG HCO3 ABG Base Excess ABG Hemoglobin ABG Oxyhemoglobin ABG Sodium ABG Potassium ABG Chloride ABG Glucose VBG pH Oxyhemoglobin Carboxyhemoglobin Sodium Potassium 3.5 L Chloride Carbon Dioxide 31 H 32 H BUN 19 H 19 H Creatinine 1.8 H 1.8 H Glucose POC Glucose Lactic Acid Calcium 7.0 L 7.2 L Ionized Calcium Magnesium 2.90 H AST ALT Alkaline Phosphatase Lactate Dehydrogenase NT-Pro-B Natriuret Pep Total Protein Albumin Arterial Blood Glucose Arterial Blood Ionized Calcium Urine WBC (Auto) Crossmatch 10/06/20 10/06/20 10/06/20 01:05 03:12 04:00 WBC 17.1 H RBC 3.47 L Hgb Hct MCV MCH MCHC RDW 17.4 H Plt Count 82 L Lymph % (Auto) 8.3 L [place] % (Auto) Lymph # (Auto) [place] # (Auto) 1.1 H Seg Neutrophils % 83.8 H Seg Neuts % (Manual) Lymphocytes % (Manual) Monocytes % (Manual) Nucleated RBC % Seg Neutrophils # 14.3 H Seg Neutrophils # Man Lymphocytes # (Manual) Monocytes # (Manual) PT INR APTT Fibrinogen D-Dimer ABG pH 7.474 H POC ABG pCO2 POC ABG pO2 129.5 H ABG pO2 ABG HCO3 ABG Base Excess ABG Hemoglobin 11.4 L ABG Oxyhemoglobin ABG Sodium 131.8 L ABG Potassium ABG Chloride ABG Glucose 103 H VBG pH Oxyhemoglobin Carboxyhemoglobin 0.3 L Sodium Potassium Chloride Carbon Dioxide BUN Creatinine Glucose POC Glucose Lactic Acid Calcium Ionized Calcium Magnesium 3.70 H AST ALT Alkaline Phosphatase Lactate Dehydrogenase NT-Pro-B Natriuret Pep Total Protein Albumin Arterial Blood Glucose 103 H Arterial Blood Ionized Calcium 4.2 L Urine WBC (Auto) Crossmatch 10/06/20 10/06/20 10/06/20 04:00 05:31 08:12 WBC RBC Hgb Hct MCV MCH MCHC RDW Plt Count Lymph % (Auto) [place] % (Auto) Lymph # (Auto) [place] # (Auto) Seg Neutrophils % Seg Neuts % (Manual) Lymphocytes % (Manual) Monocytes % (Manual) Nucleated RBC % Seg Neutrophils # Seg Neutrophils # Man Lymphocytes # (Manual) Monocytes # (Manual) PT INR APTT Fibrinogen D-Dimer ABG pH POC ABG pCO2 POC ABG pO2 ABG pO2 ABG HCO3 ABG Base Excess ABG Hemoglobin ABG Oxyhemoglobin ABG Sodium ABG Potassium ABG Chloride ABG Glucose VBG pH Oxyhemoglobin Carboxyhemoglobin Sodium Potassium 3.5 L Chloride Carbon Dioxide BUN 19 H Creatinine 1.8 H Glucose 102 H POC Glucose 116 H Lactic Acid Calcium 7.2 L Ionized Calcium Magnesium 5.40 H AST 307 H ALT 137 H Alkaline Phosphatase Lactate Dehydrogenase NT-Pro-B Natriuret Pep Total Protein 4.5 L Albumin 2.6 L Arterial Blood Glucose Arterial Blood Ionized Calcium Urine WBC (Auto) Crossmatch 10/06/20 10/06/20 10/06/20 11:00 11:50 20:13 WBC RBC Hgb Hct MCV MCH MCHC RDW Plt Count Lymph % (Auto) [place] % (Auto) Lymph # (Auto) [place] # (Auto) Seg Neutrophils % Seg Neuts % (Manual) Lymphocytes % (Manual) Monocytes % (Manual) Nucleated RBC % Seg Neutrophils # Seg Neutrophils # Man Lymphocytes # (Manual) Monocytes # (Manual) PT INR APTT Fibrinogen D-Dimer ABG pH POC ABG pCO2 POC ABG pO2 ABG pO2 ABG HCO3 ABG Base Excess ABG Hemoglobin ABG Oxyhemoglobin ABG Sodium ABG Potassium ABG Chloride ABG Glucose VBG pH Oxyhemoglobin Carboxyhemoglobin Sodium Potassium Chloride Carbon Dioxide BUN Creatinine Glucose POC Glucose 106 H Lactic Acid Calcium Ionized Calcium Magnesium 6.50 H 6.20 H AST ALT Alkaline Phosphatase Lactate Dehydrogenase NT-Pro-B Natriuret Pep Total Protein Albumin Arterial Blood Glucose Arterial Blood Ionized Calcium Urine WBC (Auto) Crossmatch 10/06/20 10/06/20 10/06/20 20:17 22:29 23:57 WBC RBC Hgb Hct MCV MCH MCHC RDW Plt Count Lymph % (Auto) [place] % (Auto) Lymph # (Auto) [place] # (Auto) Seg Neutrophils % Seg Neuts % (Manual) Lymphocytes % (Manual) Monocytes % (Manual) Nucleated RBC % Seg Neutrophils # Seg Neutrophils # Man Lymphocytes # (Manual) Monocytes # (Manual) PT INR APTT Fibrinogen D-Dimer ABG pH POC ABG pCO2 POC ABG pO2 ABG pO2 ABG HCO3 ABG Base Excess ABG Hemoglobin ABG Oxyhemoglobin ABG Sodium ABG Potassium ABG Chloride ABG Glucose VBG pH Oxyhemoglobin Carboxyhemoglobin Sodium Potassium Chloride Carbon Dioxide BUN Creatinine Glucose POC Glucose 112 H 126 H 133 H Lactic Acid Calcium Ionized Calcium Magnesium AST ALT Alkaline Phosphatase Lactate Dehydrogenase NT-Pro-B Natriuret Pep Total Protein Albumin Arterial Blood Glucose Arterial Blood Ionized Calcium Urine WBC (Auto) Crossmatch 10/07/20 10/07/20 10/07/20 00:35 02:22 03:16 WBC RBC Hgb Hct MCV MCH MCHC RDW Plt Count Lymph % (Auto) [place] % (Auto) Lymph # (Auto) [place] # (Auto) Seg Neutrophils % Seg Neuts % (Manual) Lymphocytes % (Manual) Monocytes % (Manual) Nucleated RBC % Seg Neutrophils # Seg Neutrophils # Man Lymphocytes # (Manual) Monocytes # (Manual) PT INR APTT Fibrinogen D-Dimer ABG pH POC ABG pCO2 POC ABG pO2 ABG pO2 ABG HCO3 ABG Base Excess ABG Hemoglobin 11.6 L ABG Oxyhemoglobin ABG Sodium ABG Potassium ABG Chloride ABG Glucose 156 H VBG pH Oxyhemoglobin Carboxyhemoglobin 0.3 L Sodium Potassium Chloride Carbon Dioxide BUN Creatinine Glucose POC Glucose 124 H Lactic Acid Calcium Ionized Calcium Magnesium 5.90 H AST ALT Alkaline Phosphatase Lactate Dehydrogenase NT-Pro-B Natriuret Pep Total Protein Albumin Arterial Blood Glucose 156 H Arterial Blood Ionized Calcium 4.2 L Urine WBC (Auto) Crossmatch 10/07/20 10/07/20 10/07/20 04:06 05:45 07:05 WBC 19.2 H RBC 3.57 L Hgb Hct MCV MCH MCHC 35 H RDW 17.1 H Plt Count 129 L Lymph % (Auto) [place] % (Auto) Lymph # (Auto) [place] # (Auto) Seg Neutrophils % Seg Neuts % (Manual) 94.0 H Lymphocytes % (Manual) 6.0 L Monocytes % (Manual) Nucleated RBC % Seg Neutrophils # Seg Neutrophils # Man 18.0 H Lymphocytes # (Manual) Monocytes # (Manual) PT INR APTT Fibrinogen D-Dimer ABG pH POC ABG pCO2 POC ABG pO2 ABG pO2 ABG HCO3 ABG Base Excess ABG Hemoglobin ABG Oxyhemoglobin ABG Sodium ABG Potassium ABG Chloride ABG Glucose VBG pH Oxyhemoglobin Carboxyhemoglobin Sodium Potassium Chloride Carbon Dioxide BUN Creatinine Glucose POC Glucose 135 H 149 H Lactic Acid Calcium Ionized Calcium Magnesium AST ALT Alkaline Phosphatase Lactate Dehydrogenase NT-Pro-B Natriuret Pep Total Protein Albumin Arterial Blood Glucose Arterial Blood Ionized Calcium Urine WBC (Auto) Crossmatch 10/07/20 10/07/20 10/07/20 07:05 07:05 12:21 WBC RBC Hgb Hct MCV MCH MCHC RDW Plt Count Lymph % (Auto) [place] % (Auto) Lymph # (Auto) [place] # (Auto) Seg Neutrophils % Seg Neuts % (Manual) Lymphocytes % (Manual) Monocytes % (Manual) Nucleated RBC % Seg Neutrophils # Seg Neutrophils # Man Lymphocytes # (Manual) Monocytes # (Manual) PT INR APTT Fibrinogen D-Dimer ABG pH POC ABG pCO2 POC ABG pO2 ABG pO2 ABG HCO3 ABG Base Excess ABG Hemoglobin ABG Oxyhemoglobin ABG Sodium ABG Potassium ABG Chloride ABG Glucose VBG pH Oxyhemoglobin Carboxyhemoglobin Sodium Potassium Chloride Carbon Dioxide BUN 21 H Creatinine 1.7 H Glucose 171 H POC Glucose 124 H Lactic Acid Calcium 7.4 L Ionized Calcium Magnesium 6.10 H AST 245 H ALT 147 H Alkaline Phosphatase Lactate Dehydrogenase NT-Pro-B Natriuret Pep Total Protein 5.3 L Albumin 2.8 L Arterial Blood Glucose Arterial Blood Ionized Calcium Urine WBC (Auto) Crossmatch 10/07/20 10/07/20 10/07/20 19:52 21:00 21:50 WBC RBC Hgb Hct MCV MCH MCHC RDW Plt Count Lymph % (Auto) [place] % (Auto) Lymph # (Auto) [place] # (Auto) Seg Neutrophils % Seg Neuts % (Manual) Lymphocytes % (Manual) Monocytes % (Manual) Nucleated RBC % Seg Neutrophils # Seg Neutrophils # Man Lymphocytes # (Manual) Monocytes # (Manual) PT INR APTT Fibrinogen D-Dimer ABG pH POC ABG pCO2 POC ABG pO2 ABG pO2 ABG HCO3 ABG Base Excess ABG Hemoglobin ABG Oxyhemoglobin ABG Sodium ABG Potassium ABG Chloride ABG Glucose VBG pH Oxyhemoglobin Carboxyhemoglobin Sodium Potassium Chloride Carbon Dioxide BUN Creatinine Glucose POC Glucose 193 H 138 H Lactic Acid Calcium Ionized Calcium 4.4 L Magnesium AST ALT Alkaline Phosphatase Lactate Dehydrogenase NT-Pro-B Natriuret Pep Total Protein Albumin Arterial Blood Glucose Arterial Blood Ionized Calcium Urine WBC (Auto) Crossmatch 10/07/20 10/08/20 10/08/20 23:41 04:20 05:30 WBC RBC Hgb Hct MCV MCH MCHC RDW Plt Count Lymph % (Auto) [place] % (Auto) Lymph # (Auto) [place] # (Auto) Seg Neutrophils % Seg Neuts % (Manual) Lymphocytes % (Manual) Monocytes % (Manual) Nucleated RBC % Seg Neutrophils # Seg Neutrophils # Man Lymphocytes # (Manual) Monocytes # (Manual) PT INR APTT Fibrinogen D-Dimer ABG pH 7.467 H POC ABG pCO2 POC ABG pO2 189.8 H ABG pO2 ABG HCO3 ABG Base Excess ABG Hemoglobin 10.8 L ABG Oxyhemoglobin ABG Sodium ABG Potassium ABG Chloride ABG Glucose 133 H VBG pH Oxyhemoglobin Carboxyhemoglobin Sodium Potassium Chloride Carbon Dioxide BUN Creatinine Glucose POC Glucose 118 H 114 H Lactic Acid Calcium Ionized Calcium Magnesium AST ALT Alkaline Phosphatase Lactate Dehydrogenase NT-Pro-B Natriuret Pep Total Protein Albumin Arterial Blood Glucose 133 H Arterial Blood Ionized Calcium 4.2 L Urine WBC (Auto) Crossmatch 10/08/20 10/08/20 10/08/20 05:43 06:42 06:42 WBC 23.6 H RBC 3.54 L Hgb Hct MCV MCH MCHC RDW 17.8 H Plt Count Lymph % (Auto) [place] % (Auto) Lymph # (Auto) [place] # (Auto) Seg Neutrophils % Seg Neuts % (Manual) 93.0 H Lymphocytes % (Manual) 3.0 L Monocytes % (Manual) Nucleated RBC % 1.0 H Seg Neutrophils # Seg Neutrophils # Man 21.9 H Lymphocytes # (Manual) 0.7 L Monocytes # (Manual) 0.9 H PT INR APTT Fibrinogen D-Dimer ABG pH POC ABG pCO2 POC ABG pO2 ABG pO2 ABG HCO3 ABG Base Excess ABG Hemoglobin ABG Oxyhemoglobin ABG Sodium ABG Potassium ABG Chloride ABG Glucose VBG pH Oxyhemoglobin Carboxyhemoglobin Sodium Potassium Chloride Carbon Dioxide BUN 28 H Creatinine 1.6 H Glucose 141 H POC Glucose 126 H Lactic Acid Calcium 7.6 L Ionized Calcium Magnesium AST 162 H ALT 103 H Alkaline Phosphatase Lactate Dehydrogenase NT-Pro-B Natriuret Pep Total Protein 5.4 L Albumin 2.7 L Arterial Blood Glucose Arterial Blood Ionized Calcium Urine WBC (Auto) Crossmatch 10/08/20 10/08/20 10/08/20 11:20 16:05 20:14 WBC RBC Hgb Hct MCV MCH MCHC RDW Plt Count Lymph % (Auto) [place] % (Auto) Lymph # (Auto) [place] # (Auto) Seg Neutrophils % Seg Neuts % (Manual) Lymphocytes % (Manual) Monocytes % (Manual) Nucleated RBC % Seg Neutrophils # Seg Neutrophils # Man Lymphocytes # (Manual) Monocytes # (Manual) PT INR APTT Fibrinogen D-Dimer ABG pH POC ABG pCO2 POC ABG pO2 ABG pO2 ABG HCO3 ABG Base Excess ABG Hemoglobin ABG Oxyhemoglobin ABG Sodium ABG Potassium ABG Chloride ABG Glucose VBG pH Oxyhemoglobin Carboxyhemoglobin Sodium Potassium Chloride Carbon Dioxide BUN Creatinine Glucose POC Glucose 127 H 172 H 147 H Lactic Acid Calcium Ionized Calcium Magnesium AST ALT Alkaline Phosphatase Lactate Dehydrogenase NT-Pro-B Natriuret Pep Total Protein Albumin Arterial Blood Glucose Arterial Blood Ionized Calcium Urine WBC (Auto) Crossmatch 10/08/20 10/08/20 10/09/20 21:27 23:24 02:10 WBC RBC Hgb Hct MCV MCH MCHC RDW Plt Count Lymph % (Auto) [place] % (Auto) Lymph # (Auto) [place] # (Auto) Seg Neutrophils % Seg Neuts % (Manual) Lymphocytes % (Manual) Monocytes % (Manual) Nucleated RBC % Seg Neutrophils # Seg Neutrophils # Man Lymphocytes # (Manual) Monocytes # (Manual) PT INR APTT Fibrinogen D-Dimer ABG pH POC ABG pCO2 POC ABG pO2 ABG pO2 ABG HCO3 ABG Base Excess ABG Hemoglobin ABG Oxyhemoglobin ABG Sodium ABG Potassium ABG Chloride ABG Glucose VBG pH Oxyhemoglobin Carboxyhemoglobin Sodium Potassium Chloride Carbon Dioxide BUN Creatinine Glucose POC Glucose 140 H 135 H 111 H Lactic Acid Calcium Ionized Calcium Magnesium AST ALT Alkaline Phosphatase Lactate Dehydrogenase NT-Pro-B Natriuret Pep Total Protein Albumin Arterial Blood Glucose Arterial Blood Ionized Calcium Urine WBC (Auto) Crossmatch 10/09/20 10/09/20 10/09/20 03:44 04:39 05:46 WBC 19.7 H RBC 3.51 L Hgb Hct MCV MCH MCHC RDW 17.7 H Plt Count Lymph % (Auto) [place] % (Auto) Lymph # (Auto) [place] # (Auto) Seg Neutrophils % Seg Neuts % (Manual) 86.0 H Lymphocytes % (Manual) 4.0 L Monocytes % (Manual) 9.0 H Nucleated RBC % Seg Neutrophils # Seg Neutrophils # Man 16.9 H Lymphocytes # (Manual) 0.8 L Monocytes # (Manual) 1.8 H PT INR APTT Fibrinogen D-Dimer ABG pH 7.513 H POC ABG pCO2 POC ABG pO2 33.6 L ABG pO2 ABG HCO3 ABG Base Excess ABG Hemoglobin 11.1 L ABG Oxyhemoglobin 70.2 L ABG Sodium ABG Potassium 3.2 L ABG Chloride 108.0 H ABG Glucose 108 H VBG pH Oxyhemoglobin Carboxyhemoglobin Sodium Potassium Chloride Carbon Dioxide BUN Creatinine Glucose POC Glucose 109 H Lactic Acid Calcium Ionized Calcium Magnesium AST ALT Alkaline Phosphatase Lactate Dehydrogenase NT-Pro-B Natriuret Pep Total Protein Albumin Arterial Blood Glucose 108 H Arterial Blood Ionized Calcium 4.3 L Urine WBC (Auto) Crossmatch 10/09/20 10/10/20 10/10/20 05:46 04:00 04:00 WBC 18.4 H RBC Hgb Hct MCV MCH MCHC RDW 17.5 H Plt Count Lymph % (Auto) 9.8 L [place] % (Auto) 8.8 H Lymph # (Auto) [place] # (Auto) 1.6 H Seg Neutrophils % 80.0 H Seg Neuts % (Manual) Lymphocytes % (Manual) Monocytes % (Manual) Nucleated RBC % Seg Neutrophils # 14.7 H Seg Neutrophils # Man Lymphocytes # (Manual) Monocytes # (Manual) PT INR APTT Fibrinogen D-Dimer ABG pH POC ABG pCO2 POC ABG pO2 ABG pO2 ABG HCO3 ABG Base Excess ABG Hemoglobin ABG Oxyhemoglobin ABG Sodium ABG Potassium ABG Chloride ABG Glucose VBG pH Oxyhemoglobin Carboxyhemoglobin Sodium 146 H Potassium 3.2 L 2.9 L* Chloride 108.9 H 112.6 H Carbon Dioxide BUN 34 H 28 H Creatinine 1.4 H 1.3 H Glucose 109 H 101 H POC Glucose Lactic Acid Calcium 7.6 L 7.8 L Ionized Calcium Magnesium AST 137 H 122 H ALT 99 H 81 H Alkaline Phosphatase Lactate Dehydrogenase NT-Pro-B Natriuret Pep Total Protein 5.1 L 5.2 L Albumin 2.6 L 2.7 L Arterial Blood Glucose Arterial Blood Ionized Calcium Urine WBC (Auto) Crossmatch 10/10/20 10/10/20 10/11/20 04:42 09:50 00:44 WBC RBC Hgb Hct MCV MCH MCHC RDW Plt Count Lymph % (Auto) [place] % (Auto) Lymph # (Auto) [place] # (Auto) Seg Neutrophils % Seg Neuts % (Manual) Lymphocytes % (Manual) Monocytes % (Manual) Nucleated RBC % Seg Neutrophils # Seg Neutrophils # Man Lymphocytes # (Manual) Monocytes # (Manual) PT INR APTT Fibrinogen D-Dimer ABG pH 7.534 H POC ABG pCO2 POC ABG pO2 ABG pO2 95.2 H ABG HCO3 ABG Base Excess ABG Hemoglobin 11.3 L ABG Oxyhemoglobin ABG Sodium ABG Potassium ABG Chloride ABG Glucose VBG pH Oxyhemoglobin Carboxyhemoglobin Sodium Potassium Chloride Carbon Dioxide BUN Creatinine Glucose POC Glucose 109 H 106 H Lactic Acid Calcium Ionized Calcium Magnesium AST ALT Alkaline Phosphatase Lactate Dehydrogenase NT-Pro-B Natriuret Pep Total Protein Albumin Arterial Blood Glucose Arterial Blood Ionized Calcium Urine WBC (Auto) Crossmatch 10/11/20 10/11/20 10/11/20 04:00 04:00 06:08 WBC 27.0 H RBC Hgb Hct MCV MCH MCHC RDW 17.7 H Plt Count Lymph % (Auto) 6.3 L [place] % (Auto) Lymph # (Auto) [place] # (Auto) 1.5 H Seg Neutrophils % 87.1 H Seg Neuts % (Manual) Lymphocytes % (Manual) Monocytes % (Manual) Nucleated RBC % Seg Neutrophils # 23.5 H Seg Neutrophils # Man Lymphocytes # (Manual) Monocytes # (Manual) PT INR APTT Fibrinogen D-Dimer ABG pH POC ABG pCO2 POC ABG pO2 ABG pO2 ABG HCO3 ABG Base Excess ABG Hemoglobin ABG Oxyhemoglobin ABG Sodium ABG Potassium ABG Chloride ABG Glucose VBG pH Oxyhemoglobin Carboxyhemoglobin Sodium Potassium 3.2 L Chloride 110.4 H Carbon Dioxide 19 L BUN 22 H Creatinine Glucose 116 H POC Glucose 107 H Lactic Acid Calcium 7.7 L Ionized Calcium Magnesium 1.60 L AST ALT Alkaline Phosphatase Lactate Dehydrogenase NT-Pro-B Natriuret Pep Total Protein Albumin Arterial Blood Glucose Arterial Blood Ionized Calcium Urine WBC (Auto) Crossmatch 10/11/20 10/11/20 10/12/20 11:41 13:26 03:52 WBC RBC Hgb Hct MCV MCH MCHC RDW Plt Count Lymph % (Auto) [place] % (Auto) Lymph # (Auto) [place] # (Auto) Seg Neutrophils % Seg Neuts % (Manual) Lymphocytes % (Manual) Monocytes % (Manual) Nucleated RBC % Seg Neutrophils # Seg Neutrophils # Man Lymphocytes # (Manual) Monocytes # (Manual) PT INR APTT Fibrinogen D-Dimer ABG pH POC ABG pCO2 POC ABG pO2 ABG pO2 ABG HCO3 ABG Base Excess ABG Hemoglobin ABG Oxyhemoglobin ABG Sodium ABG Potassium ABG Chloride ABG Glucose VBG pH Oxyhemoglobin Carboxyhemoglobin Sodium Potassium Chloride Carbon Dioxide BUN Creatinine Glucose POC Glucose 116 H 114 H Lactic Acid Calcium Ionized Calcium Magnesium AST ALT Alkaline Phosphatase Lactate Dehydrogenase NT-Pro-B Natriuret Pep Total Protein Albumin Arterial Blood Glucose Arterial Blood Ionized Calcium Urine WBC (Auto) 24.0 H Crossmatch 10/12/20 10/12/20 10/12/20 04:24 14:47 21:33 WBC RBC Hgb Hct MCV MCH MCHC RDW Plt Count Lymph % (Auto) [place] % (Auto) Lymph # (Auto) [place] # (Auto) Seg Neutrophils % Seg Neuts % (Manual) Lymphocytes % (Manual) Monocytes % (Manual) Nucleated RBC % Seg Neutrophils # Seg Neutrophils # Man Lymphocytes # (Manual) Monocytes # (Manual) PT INR APTT Fibrinogen D-Dimer ABG pH POC ABG pCO2 POC ABG pO2 ABG pO2 ABG HCO3 ABG Base Excess ABG Hemoglobin ABG Oxyhemoglobin ABG Sodium ABG Potassium ABG Chloride ABG Glucose VBG pH Oxyhemoglobin Carboxyhemoglobin Sodium Potassium Chloride 109.9 H Carbon Dioxide 13 L BUN 18 H Creatinine Glucose 119 H POC Glucose 107 H Lactic Acid Calcium 7.6 L Ionized Calcium Magnesium 1.60 L AST ALT Alkaline Phosphatase Lactate Dehydrogenase NT-Pro-B Natriuret Pep Total Protein Albumin Arterial Blood Glucose Arterial Blood Ionized Calcium Urine WBC (Auto) Crossmatch 10/12/20 10/12/20 Unknown Unknown WBC 24.3 H RBC 3.38 L Hgb 9.8 L Hct MCV MCH MCHC RDW 18.7 H Plt Count Lymph % (Auto) [place] % (Auto) Lymph # (Auto) [place] # (Auto) Seg Neutrophils % Seg Neuts % (Manual) 93.5 H Lymphocytes % (Manual) 4.5 L Monocytes % (Manual) Nucleated RBC % Seg Neutrophils # Seg Neutrophils # Man 22.7 H Lymphocytes # (Manual) 1.1 L Monocytes # (Manual) PT INR APTT Fibrinogen D-Dimer ABG pH POC ABG pCO2 POC ABG pO2 ABG pO2 ABG HCO3 ABG Base Excess ABG Hemoglobin ABG Oxyhemoglobin ABG Sodium ABG Potassium ABG Chloride ABG Glucose VBG pH Oxyhemoglobin Carboxyhemoglobin Sodium 135 L D Potassium 3.1 L Chloride Carbon Dioxide 17 L BUN Creatinine Glucose 510 H* POC Glucose Lactic Acid Calcium 7.2 L Ionized Calcium Magnesium AST ALT Alkaline Phosphatase Lactate Dehydrogenase NT-Pro-B Natriuret Pep Total Protein Albumin Arterial Blood Glucose Arterial Blood Ionized Calcium Urine WBC (Auto) Crossmatch
--- NOTE | 2020-10-13 07:35 | Event Note ---
Date: 10/13/20 For clarification. The note dated 10/13/2020 at 0724 is the note for today (10/13/2020). The other note dated 10/13 is for 10/12 as I forgot to put that note in for that day. Please see the earlier note from 10/13 with today's current assessment and up to date plan.
[2020-10-13] MEDS: SODIUM BICARBONATE 650 MG TAB PO SCH ×3 (07:54→21:40)
[2020-10-13 08:08] LABS: Hematocrit 28.7 % (30.3-42.9); Hemoglobin 9.4 gm/dl (10.1-14.3); Mean Corpuscular HGB Conc 33 % (30-34); Mean Corpuscular Volume 88 fl (79-97); Platelet Count 291 K/mm3 (140-440); Red Blood Count 3.26 M/mm3 (3.65-5.03); Red Cell Distribution Width 18.3 % (13.2-15.2)
[2020-10-13 08:15] LABS: BUN/Creatinine Ratio 24; Blood Urea Nitrogen 17 mg/dL (7-17); Calcium 7.3 mg/dL (8.4-10.2); Hemolysis Index 2
[2020-10-13] MEDS: fentaNYL 100 MCG/2 ML INJ IV PRN ×3 (08:33→18:07)
[2020-10-13] MEDS: FAMOTIDINE 20 MG TAB PO SCH ×2 (09:44→21:40)
[2020-10-13] MEDS: TOPIRAMATE TAB 25 MG TAB PO SCH ×2 (09:45→21:39)
[2020-10-13] MEDS: busPIRone 10 MG TAB PO SCH ×2 (09:45→21:39)
[2020-10-13] MEDS: busPIRone 5 MG TAB PO SCH ×2 (09:45→21:40)
[2020-10-13] MEDS ORDERED: MAGNESIUM SULFATE 4 GM/100 ML BAG IV ONE (11:00)
[2020-10-13] MEDS ORDERED: POTASSIUM CHLORIDE 20 MEQ PACKET FEEDTUBE ONE (11:00)
--- NOTE | 2020-10-13 11:37 | Progress Note ---
Assessment and Plan Cultures: 10/05/2020 Blood culture: no growth 10/11/2020 blood culture: No growth A/P: 30-year-old female with GERD, hypertension, seizure disorder was admitted to the hospital at 36 weeks with seizures. She became hypoxic and pulseless requiring CPR. Following emergent section, patient developed hemorrhage, DIC. She has been admitted to ICU, remains on the vent: #Status post cardiac arrest 10/07/2020: Apparently had a brief code due to ?ET tube clot/plugging #Shock, DIC/persistent fever: Secondary to hemorrhage, ?possible sepsis. Possible pneumonia versus fluid overload. ?Central fever v/s from VTE. Noted diarrhea ? Cdiff #Acute kidney injury: renally dose abx. Improving. #Acute respiratory failure: remains on the vent. #Transaminitis: ?HELLP. Improving. #Preeclampsia # hemorrhage: Status post , status post supracervical h ysterectomy. #Encephalopathy post cardiac arrest ? Anoxic brain injury. Neurology on board. Recs: -Continue vancomycin p.o. empirically for C. difficile total 10 days, given di arrhea and leukocytosis, appears to be improving -f/u VTE eval -fevers have resolved as of now -guarded prognosis Venancio Craven MD, FACP [facility] ([facility] O: [phone] F: [phone] Subjective Date of service: 10/13/20 Principal diagnosis: Eclampsia/HELLP Syndrome, ADOLPH, DIC; s/p , s/p supracervical hyst Interval history: Remains on the vent. No fever. Unresponsive. Objective - Exam Narrative Exam: Physical Exam: Constitutional: unresponsive, intubated, on the vent Head, Ears, Nose: Normocephalic, atraumatic. External ears, nose normal Eyes: Conjunctivae/corneas clear. No icterus. No ptosis. Neck: intubated Oral: intubated Cardiovascular: S1, S2 + Respiratory: AE fair bilaterally and equal GI: Soft, bowel sounds +. lower abdominal incision present with dressing Musculoskeletal: No pedal edema, no cyanosis. Skin: No rash or abscess Hem/Lymphatic: No palpable cervical or supraclavicular nodes. No lymphangitis Psych: no agitation Neurological: unresponsive, intubated, on the vent, exam limited - Constitutional Vitals: Vital Signs Temp Pulse Resp BP Pulse Ox 98.6 F 80 20 136/88 99 10/13/20 08:00 10/13/20 08:40 10/13/20 08:40 10/13/20 08:00 10/13/20 08:00 Temperature -Last 24 Hours Temperature 98.6 F Temperature 98.6 F Temperature 99.8 F Temperature 97.2 F Temperature 99.3 F Temperature 99.6 F Temperature 98.7 F - Labs CBC & Chem 7: 10/13/20 07:00 10/13/20 07:00 Labs: Abnormal lab results 10/12/20 10/12/20 10/13/20 Range/Units 14:47 21:33 07:00 WBC (4.5-11.0) K/mm3 RBC (3.65-5.03) M/mm3 Hgb (10.1-14.3) gm/dl Hct (30.3-42.9) % RDW (13.2-15.2) % ABG pH (7.320-7.450) POC ABG pCO2 (32.0-48.0) mmHg POC ABG pO2 (83-108) mmHg ABG Hemoglobin (12.0-17.5) ABG Oxyhemoglobin (94-98) ABG Sodium (136.0-145.0) mmol/L ABG Chloride (98-107) mmol/L ABG Glucose (65-95) mg/dL Carboxyhemoglobin (0.5-1.5) Sodium (137-145) mmol/L Potassium (3.6-5.0) mmol/L Chloride (98-107) mmol/L Carbon Dioxide (22-30) mmol/L POC Glucose 107 H (70-105) mg/dL Calcium (8.4-10.2) mg/dL Magnesium 1.60 L (1.7-2.3) mg/dL Arterial Blood Glucose (65-95) mg/dL Phenytoin 5.7 L (10.0-20.0) ug/mL 10/13/20 10/13/20 10/13/20 Range/Units 07:00 07:00 07:18 WBC 23.6 H (4.5-11.0) K/mm3 RBC 3.26 L (3.65-5.03) M/mm3 Hgb 9.4 L (10.1-14.3) gm/dl Hct 28.7 L (30.3-42.9) % RDW 18.3 H (13.2-15.2) % ABG pH 7.473 H (7.320-7.450) POC ABG pCO2 20.7 L (32.0-48.0) mmHg POC ABG pO2 137.9 H (83-108) mmHg ABG Hemoglobin 11.2 L (12.0-17.5) ABG Oxyhemoglobin 98.3 H (94-98) ABG Sodium 135.9 L (136.0-145.0) mmol/L ABG Chloride 111.0 H (98-107) mmol/L ABG Glucose 109 H (65-95) mg/dL Carboxyhemoglobin 0.3 L (0.5-1.5) Sodium 135 L (137-145) mmol/L Potassium 3.5 L (3.6-5.0) mmol/L Chloride 109.1 H (98-107) mmol/L Carbon Dioxide 18 L (22-30) mmol/L POC Glucose (70-105) mg/dL Calcium 7.3 L (8.4-10.2) mg/dL Magnesium 1.60 L (1.7-2.3) mg/dL Arterial Blood Glucose 109 H (65-95) mg/dL Phenytoin (10.0-20.0) ug/mL
--- NOTE | 2020-10-13 11:53 | Progress Note ---
Assessment and Plan Assessment and plan: -- Sepsis with presumed Pneumonia Teated with iv abx, follow Cx -Completed cefepime course 5 days on 10/09/2020 -Check MRSA culture -Start vancomycin p.o. empirically for C. difficile total 10 days, given diarrhea and worsening leukocytosis, --Acute respiratory failure with hypoxia Patient intubated Vent management per CC --DIC (disseminated intravascular coagulation) vs HELLP syndrome Has anemia,thrombocytopenia and elevated liver enzymes Patient received multiple units of RBCs, FFP's, cryo Hematology/oncology recommendations appreciated Continue to trend fibrinogen and INR Critical care on board --Possible Eclampsia/HELLP Syndrome Patient presented with seizure-->hypoxia-->urgent C section-->hysterectomy for severe bleeding/DIC developed severe anemia-->received RBC, plt, FFP, cryo was on max pressors-->now off pressors still on vent, on sedation Hematology following --s/p Cardiac arrest x2 on admission and on 10/07 ACLS protocol followed by revival Echo showed preserved Ef --Shock s/p pressor support Likely hypovolemic. on empirical antibiotics for possible sepsis. Continue to monitor blood pressure closely Trend H&H and transfuse as needed --Lactic acidosis As a result of poor organ perfusion and possible sepsis Continue IV hydration. Lactic acid is trending down Nephrology on board --ADOLPH As a result of hypoperfusion and shock Continue IV hydration Cr stable, follow BMP --DVT prophylaxis Patient presented with DIC No anticoagulants The high probability of a clinically significant, sudden or life threatening deterioration of the [pulmonary] system(s) required my full and direct attention, intervention and personal management. The aggregate critical care t cristhian was [35] minutes. This time is in addition to time spent performing reported procedures but includes the following: [x] Data Review and interpretation [x] Patient assessment and monitoring of vital signs [x] Documentation [x] Medication orders and management brief History 30 year old -Vincentian female CHE 10/25/20 at 36w5d who presents with seizures in triage on 10/02/20. Pt was not able to provide history but per pt's , she presented to the hospital to return a 24 hour urine specimen for analysis. She then suddenly reported that she did not feel good. She was taken to labor and delivery and shortly after arrival, she began seizing. During this time, a code met was called because the patient became hypoxic. She was then noted to be without a pulse. Chest compressions were started immediately, and the patient was emergently taken to the operating room for delivery of the fetus. Off note, This patient has had care at [facility] with comanagement by [facility] since 11 wks complicated by ADHD, morbid obesity, gen eralized anxiety disorder, panic attacks, chronic narcotic use, fibromyalgia, GERD, Irritable Bowel Syndrome, Migraines, h/o endometrial ablation and ovarian vein embolization, genital herpes, insomnia, LGA fetus, nausea and vomiting, polyhydramnios, quad screen positive for Down's Syndrome, and previous x 3. She is GBS negative. 11:30: Pt brought to L&D triage for evaluation of possible labor. Pt accompanied by her spouse. Pt spouse poor historian; unable to obtain history- allergies at this time. Pt taken from registration to triage area via WC. Pt unresponsive, actively seizing with snorous respirations. software configuration specialist, Kassy, called and requesting assistance. 11:35: Multiple staff at bedside. Pt 02 sat 67% on nonrebreather, unable to read BP at this time. Yifan Theodore CRNA, at bedside for intubation and assistance with IV insertion. INT attempt by multiple RNs unsuccessful at this time. 11:42: Pt being bagged by KORIN, 02% 79%. No pulse palpated, compressions started at this time; bharati young called and Dr. Newberry preparing OR for emergent c/s. 11:44: Continued compressions on stretcher while transporting pt to OR 1. Pt being bagged with jaw thrust manuever in place by KORIN Stringer student. 11:45: Arrival to OR 1. Dr. Newberry and Dr. Portillo present for emergent c/s. Code team arrived for continued care. patient revived and c/s done Patient has been bleeding from C/s site followed by supracervical hysterectomy for severe bleeding Patient transfused multiple units of PRBC, Patient in DIC. Transferred to the ICU 10/03. Patient seen and examined at bedside this morning. Patient is nonresponsive and mechanically ventilated. On pressors. Labs reviewed-has constanza kocytosis, anemia, thrombocytopenia, ADOLPH and lactic acidosis. Started on IV antibiotics to cover possible sepsis secondary to DIC. Hematology oncology recommendations appreciated-needs additional cryoprecipitate and FFP. Monitor D-dimer, fibrinogen and frequent labs. Nephrology consulted for lactic acidosis and ADOLPH. 10/04. Remains mechanically ventilated. Kevin antibiotics. Labs shows improved acidosis - lactic acid 3.5. Hb drop noted. Getting transfused 2 units PRBCs. Platelet count is ~40k. Continue to monitor labs closely. Critical care team on board. 10/05; xray reviewed, concerning for multifocal infilrate, likely underlying Pneumonia, will add ID consult to assist with management of this critically ill patient, start tube feed, closely monitor renal system 10/06: Resumed care, remains on mechanical ventilation. No active bleeding, H&H stable. Continue to monitor CBC and BMP. Continue IV antibiotic for underlying pneumonia. Follow critical care and ID recommendation. 10/07: Remains on mechanical ventilation. No active bleeding, H&H stable. Critical care following, wean off ventilation as tolerated. 10/08: Patient had another cardiac arrest last night. Remains on mechanical ventilation, update family. Continue supportive care -poor prognosis 10/09: Called patient mother and discussed about patient care and management. Answered all question to best of my knowledge and family satisfaction. Patient remains on mechanical ventilation, cardiac arrest x2 so far. Critically sick, poor prognosis 10/10: remains on mechanical ventilation. h/h stable, no active bleeding. monitor CBC/BMP 10/11: WBC trended up with diarrhea, started on vancomycin po. remains on MV, off pressor, tolerating TF 10/12: remains on MV, off pressor, tolerating TF. called family for update but unable to reach, could not leave message as it was full. cont supportive care, wean off vent as tolerated. 10/13/2020; patient is on mechanical ventilation, tolerating tube feeding. Eids damian has labored breathing. Neuro was consulted and recommend MRI. Patient is on Precedex. Rectal tube in place. History Interval history: Patient was seen and evaluated this morning Patient has labored breathing On vent and Precedex Hospitalist Physical - Physical exam Narrative exam: vITAL SIGNS: Reviewed. GENERAL: Intubated HEAD: No signs of head trauma. EYES: Pupils are equal. MOUTH: OT in place NECK: No adenopathy, no JVD. CHEST: Rales posteriorly CARDIAC: normal S1 and S2, without murmurs, gallops, or rubs. ABDOMEN: Soft, non tender and non distended. surgical wound in tact, No rebound or guarding, and no masses palpated. Bowel Sounds normal. AVINASH drain intact MUSCULOSKELETAL: No edema NEUROLOGIC EXAM: Intubated SKIN: No obvious lesions - Constitutional Vitals: Temp Pulse Resp BP Pulse Ox 98.6 F 80 20 136/88 99 10/13/20 08:00 10/13/20 08:40 10/13/20 08:40 10/13/20 08:00 10/13/20 08:00 General appearance: Present: severe distress, well-nourished HEART Score - HEART Score Age: < 45 Risk factors: 1-2 risk factors - Critical Actions Critical Actions: >7 pts:50-65% risk of adverse cardiac event. Early invasive measures Results - Labs CBC & Chem 7: 10/13/20 07:00 10/13/20 07:00 Labs: Laboratory Last Values WBC 23.6 K/mm3 (4.5-11.0) H 10/13/20 07:00 RBC 3.26 M/mm3 (3.65-5.03) L 10/13/20 07:00 Hgb 9.4 gm/dl (10.1-14.3) L 10/13/20 07:00 Hct 28.7 % (30.3-42.9) L 10/13/20 07:00 MCV 88 fl (79-97) 10/13/20 07:00 MCH 29 pg (28-32) 10/13/20 07:00 MCHC 33 % (30-34) 10/13/20 07:00 RDW 18.3 % (13.2-15.2) H 10/13/20 07:00 Plt Count 291 K/mm3 (140-440) 10/13/20 07:00 Lymph % (Auto) 6.3 % (13.4-35.0) L 10/11/20 04:00 Edwards % (Auto) 5.4 % (0.0-7.3) 10/11/20 04:00 Eos % (Auto) 0.9 % (0.0-4.3) 10/11/20 04:00 Baso % (Auto) 0.3 % (0.0-1.8) 10/11/20 04:00 Lymph # (Auto) 1.7 K/mm3 (1.2-5.4) 10/11/20 04:00 Edwards # (Auto) 1.5 K/mm3 (0.0-0.8) H 10/11/20 04:00 Eos # (Auto) 0.3 K/mm3 (0.0-0.4) 10/11/20 04:00 Baso # (Auto) 0.1 K/mm3 (0.0-0.1) 10/11/20 04:00 Add Manual Diff Complete 10/12/20 Unknown Total Counted 200 10/12/20 Unknown Seg Neutrophils % 87.1 % (40.0-70.0) H 10/11/20 04:00 Seg Neuts % (Manual) 93.5 % (40.0-70.0) H 10/12/20 Unknown Band Neutrophils % 1.0 % 10/09/20 05:46 Lymphocytes % (Manual) 4.5 % (13.4-35.0) L 10/12/20 Unknown Reactive Lymphs % (Man) 1.0 % 10/02/20 12:18 Monocytes % (Manual) 1.5 % (0.0-7.3) 10/12/20 Unknown Eosinophils % (Manual) 0.5 % (0.0-4.3) 10/12/20 Unknown Metamyelocytes % 4.0 % 10/03/20 09:00 Myelocytes % 2.0 % 10/02/20 13:05 Nucleated RBC % Not Reportable 10/12/20 Unknown Seg Neutrophils # 23.5 K/mm3 (1.8-7.7) H 10/11/20 04:00 Seg Neutrophils # Man 22.7 K/mm3 (1.8-7.7) H 10/12/20 Unknown Band Neutrophils # 0.0 K/mm3 10/12/20 Unknown Lymphocytes # (Manual) 1.1 K/mm3 (1.2-5.4) L 10/12/20 Unknown Abs React Lymphs (Man) 0.0 K/mm3 10/12/20 Unknown Monocytes # (Manual) 0.4 K/mm3 (0.0-0.8) 10/12/20 Unknown Eosinophils # (Manual) 0.1 K/mm3 (0.0-0.4) 10/12/20 Unknown Basophils # (Manual) 0.0 K/mm3 (0.0-0.1) 10/12/20 Unknown Metamyelocytes # 0.0 K/mm3 10/12/20 Unknown Myelocytes # 0.0 K/mm3 10/12/20 Unknown Promyelocytes # 0.0 K/mm3 10/12/20 Unknown Blast Cells # 0.0 K/mm3 10/12/20 Unknown WBC Morphology Not Reportable 10/12/20 Unknown Hypersegmented Neuts Not Reportable 10/12/20 Unknown Hyposegmented Neuts Not Reportable 10/12/20 Unknown Hypogranular Neuts Not Reportable 10/12/20 Unknown Smudge Cells Not Reportable 10/12/20 Unknown Toxic Granulation Not Reportable 10/12/20 Unknown Toxic Vacuolation Not Reportable 10/12/20 Unknown Dohle Bodies Not Reportable 10/12/20 Unknown Pelger-Huet Anomaly Not Reportable 10/12/20 Unknown Ester Rods Not Reportable 10/12/20 Unknown Platelet Estimate Consistent w auto 10/12/20 Unknown Clumped Platelets Not Reportable 10/12/20 Unknown Plt Clumps, EDTA Not Reportable 10/12/20 Unknown Large Platelets Not Reportable 10/12/20 Unknown Giant Platelets Not Reportable 10/12/20 Unknown Platelet Satelliting Not Reportable 10/12/20 Unknown Plt Morphology Comment Not Reportable 10/12/20 Unknown RBC Morphology Not Reportable 10/12/20 Unknown Dimorphic RBCs Not Reportable 10/12/20 Unknown Polychromasia Not Reportable 10/12/20 Unknown Hypochromasia Not Reportable 10/12/20 Unknown Poikilocytosis Not Reportable 10/12/20 Unknown Anisocytosis 1+ 10/12/20 Unknown Microcytosis Not Reportable 10/12/20 Unknown Macrocytosis Not Reportable 10/12/20 Unknown Spherocytes Not Reportable 10/12/20 Unknown Pappenheimer Bodies Not Reportable 10/12/20 Unknown Sickle Cells Not Reportable 10/12/20 Unknown Target Cells Not Reportable 10/12/20 Unknown Tear Drop Cells Not Reportable 10/12/20 Unknown Ovalocytes Not Reportable 10/12/20 Unknown Helmet Cells Not Reportable 10/12/20 Unknown [place] Bodies Not Reportable 10/12/20 Unknown [place] Rings Not Reportable 10/12/20 Unknown [place] Cells Not Reportable 10/12/20 Unknown Bite Cells Not Reportable 10/12/20 Unknown Crenated Cell Not Reportable 10/12/20 Unknown Elliptocytes Not Reportable 10/12/20 Unknown Acanthocytes (Spur) Not Reportable 10/12/20 Unknown Rouleaux Not Reportable 10/12/20 Unknown Hemoglobin C Crystals Not Reportable 10/12/20 Unknown Schistocytes Not Reportable 10/12/20 Unknown Malaria parasites Not Reportable 10/12/20 Unknown Sharad Bodies Not Reportable 10/12/20 Unknown Hem Pathologist Commnt No 10/12/20 Unknown PT 13.0 Sec. (12.2-14.9) 10/05/20 05:00 INR 1.00 (0.87-1.13) 10/05/20 05:00 APTT 31.6 Sec. (24.2-36.6) 10/03/20 00:40 Fibrinogen 336 mg/dl (211-480) 10/04/20 10:00 D-Dimer > 21732 ng/mlDDU (0-234) H 10/04/20 10:00 ABG pH 7.473 (7.320-7.450) H 10/13/20 07:18 POC ABG pCO2 20.7 mmHg (32.0-48.0) L 10/13/20 07:18 ABG pCO2 25.0 mm Hg 10/10/20 04:42 POC ABG pO2 137.9 mmHg (83-108) H 10/13/20 07:18 ABG pO2 95.2 mm Hg (80.0-90.0) H 10/10/20 04:42 POC ABG HCO3 14.8 10/13/20 07:18 ABG HCO3 20.6 mmol/L (20.0-26.0) 10/10/20 04:42 ABG O2 Saturation 97.9 % (95.0-99.0) 10/10/20 04:42 ABG O2 Content 15.4 (0.0-44) 10/10/20 04:42 POC ABG Base Excess -6.9 10/13/20 07:18 ABG Base Excess -0.8 mmol/L (-2.0-3.0) 10/10/20 04:42 ABG Hemoglobin 11.2 (12.0-17.5) L 10/13/20 07:18 ABG Oxyhemoglobin 98.3 (94-98) H 10/13/20 07:18 ABG Carboxyhemoglobin 1.4 % (0.0-5.0) 10/10/20 04:42 ABG Methemoglobin 0.3 (0.0-1.5) 10/13/20 07:18 ABG Sodium 135.9 mmol/L (136.0-145.0) L 10/13/20 07:18 ABG Potassium 3.7 mmol/L (3.40-4.50) 10/13/20 07:18 ABG Chloride 111.0 mmol/L (98-107) H 10/13/20 07:18 ABG Glucose 109 mg/dL (65-95) H 10/13/20 07:18 VBG pH 6.949 (7.320-7.420) L* 10/02/20 Unknown Oxyhemoglobin 95.9 % (95.0-99.0) 10/10/20 04:42 Carboxyhemoglobin 0.3 (0.5-1.5) L 10/13/20 07:18 FiO2 30.0 10/13/20 07:18 Sodium 135 mmol/L (137-145) L 10/13/20 07:00 Potassium 3.5 mmol/L (3.6-5.0) L 10/13/20 07:00 Chloride 109.1 mmol/L (98-107) H 10/13/20 07:00 Carbon Dioxide 18 mmol/L (22-30) L 10/13/20 07:00 Anion Gap 11 mmol/L 10/13/20 07:00 BUN 17 mg/dL (7-17) 10/13/20 07:00 Creatinine 0.7 mg/dL (0.6-1.2) 10/13/20 07:00 Estimated GFR > 60 ml/min 10/13/20 07:00 BUN/Creatinine Ratio 24 % 10/13/20 07:00 Glucose 95 mg/dL (65-100) 10/13/20 07:00 POC Glucose 93 mg/dL (70-105) 10/13/20 11:32 Lactic Acid 1.90 mmol/L (0.7-2.0) 10/04/20 22:00 Uric Acid 7.5 mg/dL (3.5-7.6) 10/02/20 13:05 Calcium 7.3 mg/dL (8.4-10.2) L 10/13/20 07:00 Ionized Calcium 4.4 mg/dL (4.8-5.6) L 10/07/20 21:00 Phosphorus 3.40 mg/dL (2.5-4.5) D 10/11/20 04:00 Magnesium 1.60 mg/dL (1.7-2.3) L 10/13/20 07:00 Total Bilirubin 0.90 mg/dL (0.1-1.2) 10/10/20 04:00 AST 122 units/L (5-40) H 10/10/20 04:00 ALT 81 units/L (7-56) H 10/10/20 04:00 Alkaline Phosphatase 94 units/L (35-129) 10/10/20 04:00 Lactate Dehydrogenase 769 units/L (91-180) H 10/02/20 13:05 NT-Pro-B Natriuret Pep 2788 pg/mL (0-450) H 10/04/20 10:00 Total Protein 5.2 g/dL (6.3-8.2) L 10/10/20 04:00 Albumin 2.7 g/dL (3.9-5) L 10/10/20 04:00 Albumin/Globulin Ratio 1.1 % 10/10/20 04:00 Procalcitonin 0.58 ng/mL (<0.15) 10/11/20 15:33 Arterial Blood Glucose 109 mg/dL (65-95) H 10/13/20 07:18 Arterial Blood Ionized Calcium 4.6 mg/dL (4.6-5.3) 10/13/20 07:18 Urine Color Yellow (Yellow) 10/11/20 13:26 Urine Turbidity Clear (Clear) 10/11/20 13:26 Urine pH 7.0 (5.0-7.0) 10/11/20 13:26 Ur Specific [place] 1.014 (1.003-1.030) 10/11/20 13:26 Urine Protein 100 mg/dl mg/dL (Negative) 10/11/20 13:26 Urine Glucose (UA) Neg mg/dL (Negative) 10/11/20 13:26 Urine Ketones Neg mg/dL (Negative) 10/11/20 13:26 Urine Blood Mod (Negative) 10/11/20 13:26 Urine Nitrite Neg (Negative) 10/11/20 13:26 Urine Bilirubin Neg (Negative) 10/11/20 13:26 Urine Urobilinogen < 2.0 mg/dL (<2.0) 10/11/20 13:26 Ur Leukocyte Esterase Sm (Negative) 10/11/20 13:26 Urine WBC (Auto) 24.0 /HPF (0.0-6.0) H 10/11/20 13:26 Urine RBC (Auto) 59.0 /HPF (0.0-6.0) 10/11/20 13:26 Urine Bacteria (Auto) 1+ /HPF (Negative) 10/11/20 13:26 Urine Mucus Few /HPF 10/11/20 13:26 Phenytoin 5.7 ug/mL (10.0-20.0) L 10/13/20 07:00 Coronavirus (PCR) Negative (Negative) 10/08/20 14:15 Blood Type O POSITIVE 10/02/20 12:50 Antibody Screen Negative 10/02/20 12:50 Crossmatch See Detail 10/02/20 12:50 Microbiology: Microbiology 10/11/20 15:33 Peripheral/Venous Blood Culture - Preliminary NO GROWTH AFTER 24 HOURS 10/11/20 15:33 Peripheral/Venous Blood Culture - Preliminary NO GROWTH AFTER 24 HOURS 10/11/20 15:50 Tracheal Aspirate Sputum Culture - Preliminary - Diagnostic Impressions Diagnostic Impressions: Echocardiogram 10/03/20 13:42 Transthoracic Echocardiogram Indication: S/P Cardiac Arrest R/O Cardiomyopathy BP: 133/71 Conclusions *Global left ventricular systolic function is normal. *The estimated ejection fraction is 60-65%. *There is trace of mitral regurgitation. *The right 0heart chambers are both slightly dilated. *There is mild tricuspid regurgitation. *There is mild-moderate pulmonary hypertension. *The right ventricular systolic pressure is calculated at 44 mmHg. *The study quality is technically difficult. Findings Procedure Info: The study quality is technically difficult. The study is technically limited due to patient body habitus. The study was technically limited due to the patient's inability to lay in the left lateral decubitus position. Left Ventricle: The left ventricular chamber size is normal. There is no left ventricular hypertrophy. Global left ventricular systolic function is normal. The estimated ejection fraction is 60-65%. Left Atrium: The left atrial chamber size is normal. Right Ventricle: The right ventricle is slightly dilated. Right Atrium: The right atrium is mildly dilated. Aortic Valve: The aortic valve leaflets are mildly thickened. There is no evidence of aortic regurgitation. There is no evidence of aortic stenosis. Mitral Valve: The mitral valve leaflets are mildly thickened. There is trace of mitral regurgitation. There is no evidence of mitral stenosis. Tricuspid Valve: There is mild tricuspid regurgitation. The right ventricular systolic pressure is calculated at 44 mmHg. There is evidence of mild pulmonary hypertension. Pulmonic Valve: There is trace pulmonic regurgitation. Pericardium: There is no pericardial effusion. Aorta: There is no dilatation of the ascending aorta. There is no dilatation of the aortic root. Venous: The inferior vena cava is dilated. Measurements Chambers 2D Name Value Normal Range IVSd (2D) 1 cm (0.6 - 1.1) LVPWd (2D) 1.01 cm (0.6 - 1.1) LVIDd (2D) 4.58 cm (3.7 - 5.6) LVIDs (2D) 3.17 cm (2 - 3.8) LV FS (2D) 30.93 % - EF Teichholz (2D) 58.66 % - Ao root diameter (2D) 2.94 cm (2 - 3.7) Volumes/Mass Name Value Normal Range LA ESV SP 4CH (A/L) 72.82 ml - LA ESV SP 2CH (A/L) 66.86 ml - LA ESV BP (A/L) 74.49 ml - LA ESV SP 4CH (MOD) 71.03 ml - LA ESV SP 2CH (MOD) 64.3 ml - LV EDV SP 4CH (MOD) 98.82 ml - LV ESV SP 4CH (MOD) 24.8 ml - EF SP 4CH (MOD) 74.9 % - LV EDV SP 2CH (MOD) 86.1 ml - LV ESV SP 2CH (MOD) 36.93 ml - EF SP 2CH (MOD) 57.11 % - LV EDV BP 94.4 ml - LV ESV BP 32.66 ml - BP EF (MOD) 65.4 % - Diastolic/Systolic Function Name Value Normal Range MV E-wave Vmax 1.04 m/sec - MV deceleration time 160.46 msec - MV A-wave Vmax 0.92 m/sec - MV E:A ratio 1.14 ratio - Aortic Valve Name Value Normal Range AV Vmax 2.12 m/sec - AV VTI 22.37 cm - AV peak gradient 17.95 mmHg - AV mean gradient 7.29 mmHg - LVOT diameter 2.01 cm - LVOT Vmax 1.8 m/sec - LVOT VTI 27.17 cm - LVOT peak gradient 12.91 mmHg - LVOT mean gradient 6.83 mmHg - SV LVOT 86.42 ml - ANITA (continuity Vmax) 2.7 cm2 - ANITA (continuity VTI) 3.86 cm2 - Ascending Ao 3.18 cm - Tricuspid Valve Name Value Normal Range TV E-wave Vmax 0.88 m/sec - TR Vmax 3.01 m/sec - TR peak gradient 36.27 mmHg - RAP 8 mmHg - RVSP 44 mmHg - IVC diameter 2.65 cm (1.2 - 2.3) Pulmonic Valve/Qp:Qs Name Value Normal Range PV Vmax 1.22 m/sec - PV peak gradient 5.91 mmHg - RVOT Vmax 0.87 m/sec - RVOT VTI 13.32 cm - RVOT peak gradient 3 mmHg - PV acceleration time 110.37 msec - [place]/IV: Voiding Method Indwelling Catheter IV Catheter Type [Right Upper PICC Line arm] IV Catheter Type [Left Triple Lumen Cath Internal Jugular] IV Catheter Type [Left Hand] Peripheral IV IV Catheter Type [Left Peripheral IV Antecubital] Active Medications - Current Medications Current Medications: Generic Name Dose Route Start Last Admin Trade Name Freq PRN Reason Stop Dose Admin Acetaminophen 650 mg 10/05/20 16:34 10/11/20 09:40 Acetaminophen 325 Mg/10.15 Ml Oral Liqd Unit Dose FEEDTUBE 650 mg Q6H PRN Administration Non Cardiac Pain or Temp>100.5 Albuterol/Ipratropium 1 ampul 10/10/20 20:00 10/13/20 08:40 Ipratropium/Albuterol Sulfate 3 Ml Ampul.Neb IH 1 ampul Q8HRT ERINN Administration Lipase/Protease/Amylase 1 each 10/05/20 11:09 Lipase 10,500/Protease 25,000/Amylase 43,750 (Units) Dr Barakat FEEDTUBE PRN PRN For Clogged Feeding Tube Buspirone HCl 10 mg 10/10/20 10:00 10/13/20 09:45 Buspirone 10 Mg Tab PO 10 mg BID ERINN Administration Buspirone HCl 5 mg 10/10/20 10:00 10/13/20 09:45 Buspirone 5 Mg Tab PO 5 mg BID ERINN Administration Famotidine 20 mg 10/07/20 10:00 10/13/20 09:44 Famotidine 20 Mg Tab PO 20 mg BID ERINN Administration Fentanyl 50 mcg 10/10/20 19:54 10/13/20 08:33 Fentanyl 100 Mcg/2 Ml Inj IV 50 mcg Q3HR PRN Administration Labored breathing Hydralazine HCl 20 mg 10/07/20 11:49 10/11/20 03:14 Hydralazine 20 Mg/1 Ml Inj IV 20 mg Q6H PRN Administration SBP >170 Hydrophilic Ointment 1 applic 10/04/20 06:55 Lip Therapy Vaseline TP Q2HR PRN Dry Lips Dexmedetomidine HCl 1,000 mcg/ 260 mls @ 7.249 mls/hr 10/13/20 05:00 10/13/20 05:22 Sodium Chloride IV 0.2 mcg/kg/hr TITRATE ERINN 7.249 mls/hr Administration Protocol 0.2 MCG/KG/HR Dextrose 1,000 mls @ 75 mls/hr 10/13/20 11:00 D10w IV DIRECT ERINN Magnesium Sulfate 4 gm in 100 mls @ 25 mls/hr 10/13/20 11:00 Magnesium Sulfate 4gm/100ml IV 10/13/20 14:59 ONCE ONE Insulin Human Regular 0 unit 10/12/20 13:00 10/13/20 09:31 Insulin Regular, Human 100 Unit/Ml 3ml Vial SUB-Q Not Given Q4H [facility] Protocol Labetalol HCl 100 mg 10/07/20 14:00 10/13/20 07:53 Labetalol 100 Mg Tab PO 100 mg TID ERINN Administration Lorazepam 2 mg 10/02/20 22:05 10/10/20 16:56 Lorazepam 2 Mg/Ml Vial IV 2 mg Q2H PRN Administration Seizures Multi-Ingred Cream/Lotion/Oil/Oint 1 applic 10/04/20 06:55 Mineral Oil/Petrolatum, White Ophth Oint 3.5 Gm OU Q4HR PRN Dry Eye(s) Simple Syrup 15 ml 10/05/20 11:09 Simple Syrup 15 Ml FEEDTUBE PRN PRN Hypoglycemia Simple Syrup 30 ml 10/05/20 11:09 Simple Syrup 15 Ml FEEDTUBE PRN PRN Hypoglycemia Sodium Bicarbonate 325 mg 10/05/20 11:09 Sodium Bicarbonate 325 Mg Tab FEEDTUBE PRN PRN For Clogged Feeding Tube Sodium Bicarbonate 1,300 mg 10/13/20 14:00 Sodium Bicarbonate 650 Mg Tab PO TID ERINN Topiramate 50 mg 10/05/20 11:00 10/13/20 09:45 Topiramate Tab 25 Mg Tab PO 50 mg Q12HR ERINN Administration Vancomycin HCl 125 mg 10/11/20 14:00 10/13/20 07:52 Vancomycin 250 Mg/10 Ml Oral Liqd PO 10/18/20 20:01 125 mg Q6H ERINN Administration Protocol Nutrition/Malnutrition Assess - Dietary Evaluation Nutrition/Malnutrition Findings: Nutrition Notes Start: 10/04/20 11:13 Freq: Status: Active Protocol: Document 10/12/20 12:19 (Rec: 10/12/20 12:31 [id number]) Nutrition Notes Initial or Follow up Reassessment Current Diagnosis Acute Kidney Injury, Respiratory Failure Other Pertinent Diagnosis Cardiac arrest, s/p c-sectuion and supracervial hysterectomy Current Diet Vital AF 1.2 at 65ml/hr Labs/Tests Na 135 K 3.1 Pertinent Medications KCl 10 mEq Vancomyosin Height 5 ft 8 in Weight 127.1 kg [place] Body Weight (kg) 63.63 BMI 42.5 Weight Status Morbidly Obese Subjective/Other Information FU for TF tolerance. Pt may get PEG next week. Percent of energy/protein needs met: 100%/74% Burn Absent Trauma Absent GI Symptoms Diarrhea Food Allergy Yes Current % PO Negligible Minimum of two criteria No physical signs of malnutrition #1 Nutrition Diagnosis Inadequate oral intake Diagnosis Progress(for reassessment Continues documentation) Is patient on ventilator? Yes Is Patient Ambulatory and/or Out of Bed No REE-([facility]-confined to bed) 2436.948 Kcal/Kg value to use for calculation 14 Approximate Energy Requirements Using 1779 kcal/Kg Calculation Used for Recommendations Kcal/kg Additional Notes Protein needs are up to 159g ( up to 2.5g/kg) Fluid needs are 1ml/kcal Nutrition Intervention Change Diet Order: Continue TF Nutrition Support: Vital AF 1.2 at 65 ml/hr. Flush with 100 ml q4h Kcal 1,872 Protein (gm) 117 Fluid (mL) 1,265 Goal #1 Meet at least 75% of energy and protein needs via TF Anticipated Discharge Needs: Unable to determine at this time Follow-Up By: 10/15/20 Additional Comments FU for TF tolerance
--- NOTE | 2020-10-13 11:59 | Progress Note ---
Assessment and Plan Impression: * Nonoliguric acute kidney injury secondary to ischemic ATN * Acidosis * Cardiac arrest * Shock * Acute hypoxic respiratory failure * Acute encephalopathy * DIC * Anemia secondary to acute blood loss * hemorrhage * Mixed respiratory/metabolic acidosis * Presumed eclampsia * Hypokalemia * Hypocalcemia * Transaminitis * Covid PUI Plan: * Renal function is stable. There is no need for renal replacement therapy at this time * Started sodium bicarb tabs, co2 is better * replete k and mag prn * Follow potassium and replete prn to goal range 4 mmol/L * Transfusion of blood products per primary team and hematology * Pressors prn to maintain MAP>65 * Reviewed ID note * Reviewed OB note * Strict I/O * Vent management per pulmonary/CCM * Dose medications for renal function * Avoid potential nephrotoxins * will see prn Subjective Date of service: 10/13/20 Principal diagnosis: Eclampsia/HELLP Syndrome, ADOLPH, DIC; s/p , s/p supracervical hyst Interval history: resting in bed today Objective - Exam Narrative Exam: Constitutional: comatose, other (critically ill on ventilator) Eyes: non-icteric ENT: oropharynx moist, other (orally intubated and not sedated) Neck: other (large in cirumference) Effort: normal Ascultation: Bilateral: clear Cardiovascular: regular rate and rhythm, other (no mrg) Gastrointestinal: normoactive bowel sounds, soft, other (post surgical changes with drain on the left side) Extremities: no cyanosis, pink and warm, anasarca Neurologic: other (unresponsive, not following commands, not tracking) Psychiatric: other (unable to assess) - Vital Signs Vital signs: Vital Signs - 12hr 10/13/20 10/13/20 10/13/20 00:00 00:09 00:15 Temperature 97.2 F L Pulse Rate 81 79 81 Pulse Rate [ Anterior Bilateral Throughout] Pulse Rate [ 81 From Monitor] Respiratory 26 H 24 25 H Rate Respiratory Rate [Anterior Bilateral Throughout] Blood Pressure 126/80 126/80 129/80 O2 Sat by Pulse 100 100 99 Oximetry 10/13/20 10/13/20 10/13/20 00:21 00:28 00:30 Temperature Pulse Rate 86 Pulse Rate [ 84 Anterior Bilateral Throughout] Pulse Rate [ From Monitor] Respiratory 27 H Rate Respiratory 24 Rate [Anterior Bilateral Throughout] Blood Pressure 129/80 131/89 O2 Sat by Pulse 100 99 Oximetry 10/13/20 10/13/20 10/13/20 00:45 01:00 01:15 Temperature Pulse Rate 83 84 89 Pulse Rate [ Anterior Bilateral Throughout] Pulse Rate [ From Monitor] Respiratory 23 27 H Rate Respiratory Rate [Anterior Bilateral Throughout] Blood Pressure 135/76 134/79 139/84 O2 Sat by Pulse 97 100 99 Oximetry 10/13/20 10/13/20 10/13/20 01:30 01:45 02:00 Temperature Pulse Rate 87 84 84 Pulse Rate [ Anterior Bilateral Throughout] Pulse Rate [ From Monitor] Respiratory 25 H 26 H 23 Rate Respiratory Rate [Anterior Bilateral Throughout] Blood Pressure 142/77 135/82 127/78 O2 Sat by Pulse 97 97 97 Oximetry 10/13/20 10/13/20 10/13/20 02:15 02:30 02:45 Temperature Pulse Rate 86 86 86 Pulse Rate [ Anterior Bilateral Throughout] Pulse Rate [ From Monitor] Respiratory 24 23 25 H Rate Respiratory Rate [Anterior Bilateral Throughout] Blood Pressure 125/74 133/76 130/76 O2 Sat by Pulse 97 98 98 Oximetry 10/13/20 10/13/20 10/13/20 03:00 03:15 03:30 Temperature Pulse Rate 84 85 85 Pulse Rate [ Anterior Bilateral Throughout] Pulse Rate [ From Monitor] Respiratory 24 25 H 26 H Rate Respiratory Rate [Anterior Bilateral Throughout] Blood Pressure 133/77 134/82 128/81 O2 Sat by Pulse 97 97 97 Oximetry 10/13/20 10/13/20 10/13/20 03:45 03:47 04:00 Temperature 99.8 F H Pulse Rate 85 85 Pulse Rate [ Anterior Bilateral Throughout] Pulse Rate [ 82 From Monitor] Respiratory 25 H 26 H Rate Respiratory Rate [Anterior Bilateral Throughout] Blood Pressure 134/79 129/81 O2 Sat by Pulse 97 97 Oximetry 10/13/20 10/13/20 10/13/20 04:02 04:15 04:30 Temperature Pulse Rate 82 84 85 Pulse Rate [ Anterior Bilateral Throughout] Pulse Rate [ From Monitor] Respiratory 24 25 H Rate Respiratory Rate [Anterior Bilateral Throughout] Blood Pressure 129/81 131/78 135/86 O2 Sat by Pulse 100 97 98 Oximetry 10/13/20 10/13/20 10/13/20 04:45 05:00 05:15 Temperature Pulse Rate 83 85 84 Pulse Rate [ Anterior Bilateral Throughout] Pulse Rate [ From Monitor] Respiratory 25 H 26 H 25 H Rate Respiratory Rate [Anterior Bilateral Throughout] Blood Pressure 136/81 139/84 148/86 O2 Sat by Pulse 97 100 97 Oximetry 10/13/20 10/13/20 10/13/20 05:30 05:45 06:00 Temperature Pulse Rate 86 92 H 85 Pulse Rate [ Anterior Bilateral Throughout] Pulse Rate [ From Monitor] Respiratory 26 H 24 24 Rate Respiratory Rate [Anterior Bilateral Throughout] Blood Pressure 141/88 127/79 129/83 O2 Sat by Pulse 98 96 97 Oximetry 10/13/20 10/13/20 10/13/20 06:15 06:30 06:45 Temperature Pulse Rate 88 86 89 Pulse Rate [ Anterior Bilateral Throughout] Pulse Rate [ From Monitor] Respiratory 25 H 25 H 27 H Rate Respiratory Rate [Anterior Bilateral Throughout] Blood Pressure 135/87 135/87 129/90 O2 Sat by Pulse 98 95 96 Oximetry 10/13/20 10/13/20 10/13/20 07:00 07:15 07:27 Temperature Pulse Rate 85 89 80 Pulse Rate [ Anterior Bilateral Throughout] Pulse Rate [ From Monitor] Respiratory 24 25 H Rate Respiratory Rate [Anterior Bilateral Throughout] Blood Pressure 135/81 140/93 O2 Sat by Pulse 96 97 100 Oximetry 10/13/20 10/13/20 10/13/20 07:30 07:45 07:53 Temperature Pulse Rate 84 82 86 Pulse Rate [ Anterior Bilateral Throughout] Pulse Rate [ From Monitor] Respiratory 25 H 25 H Rate Respiratory Rate [Anterior Bilateral Throughout] Blood Pressure 140/90 143/84 143/84 O2 Sat by Pulse 96 96 Oximetry 10/13/20 10/13/20 08:00 08:40 Temperature 98.6 F Pulse Rate 83 Pulse Rate [ 80 Anterior Bilateral Throughout] Pulse Rate [ From Monitor] Respiratory 51 H Rate Respiratory 20 Rate [Anterior Bilateral Throughout] Blood Pressure 136/88 O2 Sat by Pulse 97 Oximetry - Lab 10/13/20 07:00 10/13/20 07:00 Most recent lab results ABG pH 7.473 (7.320-7.450) H 10/13/20 07:18 ABG pCO2 25.0 mm Hg 10/10/20 04:42 ABG pO2 95.2 mm Hg (80.0-90.0) H 10/10/20 04:42 ABG HCO3 20.6 mmol/L (20.0-26.0) 10/10/20 04:42 ABG O2 Saturation 97.9 % (95.0-99.0) 10/10/20 04:42 Calcium 7.3 mg/dL (8.4-10.2) L 10/13/20 07:00 Phosphorus 3.40 mg/dL (2.5-4.5) D 10/11/20 04:00 Magnesium 1.60 mg/dL (1.7-2.3) L 10/13/20 07:00 Medications & Allergies - Medications Allergies/Adverse Reactions: Allergies egg Allergy (Severe, Verified 05/22/20 16:09) Anaphylaxis NSAIDS (Non-Steroidal Anti-Inflamma Allergy (Severe, Verified 05/22/20 16:09) Unknown pt c/o Palpitations, nervous, had to take benadryl Sulfa (Sulfonamide Antibiotics) Allergy (Severe, Verified 05/22/20 16:09) Anaphylaxis SWELING,NUMBNESS ibuprofen Allergy (Intermediate, Verified 05/22/20 16:09) Bleeding latex Allergy (Verified 05/22/20 16:09) Hives plecanatide [From Trulance] Allergy (Verified 05/22/20 16:09) Anaphylaxis adhesive tape Adverse Reaction (Intermediate, Verified 05/22/20 16:09) Unknown PAPER TAPE OK metoclopramide [From Reglan] Adverse Reaction (Verified 05/22/20 16:09) Unknown Home Medications: Home Medications Medication Instructions Recorded Confirmed Last Taken Type Pantoprazole [Protonix TAB] 20 mg PO DAILY 05/10/19 08/20/20 05/10/19 05:00 History busPIRone 15 mg PO DAILY 01/15/20 08/20/20 Unknown History Albuterol Sulfate [Proventil Hfa] 6.7 gm IH Q4HR PRN #1 hfa.aer.ad 04/07/20 08/20/20 Unknown Rx Topiramate (Nf) [Trokendi XR CAP] 100 mg PO DAILY 08/20/20 08/20/20 Unknown History oxyCODONE /ACETAMINOPHEN [Percocet 1 tab PO Q6HR 08/20/20 08/20/20 Unknown History 5/325 mg] Active Medications: Generic Name Dose Route Start Last Admin Trade Name Freq PRN Reason Stop Dose Admin Acetaminophen 650 mg 10/05/20 16:34 10/11/20 09:40 Acetaminophen 325 Mg/10.15 Ml Oral Liqd Unit Dose FEEDTUBE 650 mg Q6H PRN Administration Non Cardiac Pain or Temp>100.5 Albuterol/Ipratropium 1 ampul 10/10/20 20:00 10/13/20 08:40 Ipratropium/Albuterol Sulfate 3 Ml Ampul.Neb IH 1 ampul Q8HRT ERINN Administration Lipase/Protease/Amylase 1 each 10/05/20 11:09 Lipase 10,500/Protease 25,000/Amylase 43,750 (Units) Dr Barakat FEEDTUBE PRN PRN For Clogged Feeding Tube Buspirone HCl 10 mg 10/10/20 10:00 10/13/20 09:45 Buspirone 10 Mg Tab PO 10 mg BID ERINN Administration Buspirone HCl 5 mg 10/10/20 10:00 10/13/20 09:45 Buspirone 5 Mg Tab PO 5 mg BID ERINN Administration Famotidine 20 mg 10/07/20 10:00 10/13/20 09:44 Famotidine 20 Mg Tab PO 20 mg BID ERINN Administration Fentanyl 50 mcg 10/10/20 19:54 10/13/20 08:33 Fentanyl 100 Mcg/2 Ml Inj IV 50 mcg Q3HR PRN Administration Labored breathing Hydralazine HCl 20 mg 10/07/20 11:49 10/11/20 03:14 Hydralazine 20 Mg/1 Ml Inj IV 20 mg Q6H PRN Administration SBP >170 Hydrophilic Ointment 1 applic 10/04/20 06:55 Lip Therapy Vaseline TP Q2HR PRN Dry Lips Dexmedetomidine HCl 1,000 mcg/ 260 mls @ 7.249 mls/hr 10/13/20 05:00 10/13/20 05:22 Sodium Chloride IV 0.2 mcg/kg/hr TITRATE ERINN 7.249 mls/hr Administration Protocol 0.2 MCG/KG/HR Dextrose 1,000 mls @ 75 mls/hr 10/13/20 11:00 D10w IV DIRECT ERINN Magnesium Sulfate 4 gm in 100 mls @ 25 mls/hr 10/13/20 11:00 Magnesium Sulfate 4gm/100ml IV 10/13/20 14:59 ONCE ONE Insulin Human Regular 0 unit 10/12/20 13:00 10/13/20 09:31 Insulin Regular, Human 100 Unit/Ml 3ml Vial SUB-Q Not Given Q4H [facility] Protocol Labetalol HCl 100 mg 10/07/20 14:00 10/13/20 07:53 Labetalol 100 Mg Tab PO 100 mg TID ERINN Administration Lorazepam 2 mg 10/02/20 22:05 10/10/20 16:56 Lorazepam 2 Mg/Ml Vial IV 2 mg Q2H PRN Administration Seizures Multi-Ingred Cream/Lotion/Oil/Oint 1 applic 10/04/20 06:55 Mineral Oil/Petrolatum, White Ophth Oint 3.5 Gm OU Q4HR PRN Dry Eye(s) Simple Syrup 15 ml 10/05/20 11:09 Simple Syrup 15 Ml FEEDTUBE PRN PRN Hypoglycemia Simple Syrup 30 ml 10/05/20 11:09 Simple Syrup 15 Ml FEEDTUBE PRN PRN Hypoglycemia Sodium Bicarbonate 325 mg 10/05/20 11:09 Sodium Bicarbonate 325 Mg Tab FEEDTUBE PRN PRN For Clogged Feeding Tube Sodium Bicarbonate 1,300 mg 10/13/20 14:00 Sodium Bicarbonate 650 Mg Tab PO TID ERINN Topiramate 50 mg 10/05/20 11:00 10/13/20 09:45 Topiramate Tab 25 Mg Tab PO 50 mg Q12HR ERINN Administration Vancomycin HCl 125 mg 10/11/20 14:00 10/13/20 07:52 Vancomycin 250 Mg/10 Ml Oral Liqd PO 10/18/20 20:01 125 mg Q6H ERINN Administration Protocol
[2020-10-13] MEDS: DEXTROSE 10% IN WATER 1,000 ML IV SCH (14:08)
[2020-10-13] MEDS ORDERED: POTASSIUM CHLORIDE 20 MEQ PACKET FEEDTUBE SCH (16:30)
--- NOTE | 2020-10-13 18:08 | Progress Note ---
Assessment and Plan - Patient Problems (1) Acute respiratory failure with hypoxia Current Visit: Yes Status: Acute Plan to address problem: remains intubated and sedated will remove tuan tomorrow and place steri-strips continue to follow recommendation of hospitalist and consulting specialities (2) Cardiac arrest Current Visit: Yes Status: Acute (3) DIC (disseminated intravascular coagulation) Current Visit: Yes Status: Acute Subjective - Subjective Date of service: 10/13/20 Principal diagnosis: Eclampsia/HELLP Syndrome, ADOLPH, DIC; s/p , s/p supracervical hyst Interval history: 30y/o POD #10 s/p supracervical hysterectomy for eclampsia and DIC. Patient remains unresponsive. Her hemodynamic status and renal function remain stable. Still exhibits significant edema despite diuresis. Demonstrating agonal breathing after being agitated with evening bath. Having intermittent flutter of eye lids and movement of lower extremities. Incision has been left open to air. Remains intact with minimal serosang drainage. Objective - Vital Signs Latest vital signs: Vital Signs Temp Pulse Pulse Pulse Resp Resp BP 10/13/20 16:36 93 H 153/87 10/13/20 16:00 82 23 10/13/20 14:09 82 148/86 10/13/20 12:05 79 141/85 10/13/20 08:40 80 20 10/13/20 08:00 98.6 F 83 51 H 136/88 10/13/20 07:53 86 143/84 10/13/20 07:45 82 25 H 143/84 10/13/20 07:30 84 25 H 140/90 10/13/20 07:27 80 10/13/20 07:15 89 25 H 140/93 10/13/20 07:00 85 24 135/81 10/13/20 06:45 89 27 H 129/90 10/13/20 06:30 86 25 H 135/87 10/13/20 06:15 88 25 H 135/87 10/13/20 06:00 85 24 129/83 10/13/20 05:45 92 H 24 127/79 10/13/20 05:30 86 26 H 141/88 10/13/20 05:15 84 25 H 148/86 10/13/20 05:00 85 26 H 139/84 10/13/20 04:45 83 25 H 136/81 10/13/20 04:30 85 25 H 135/86 10/13/20 04:15 84 24 131/78 10/13/20 04:02 82 129/81 10/13/20 04:00 85 82 26 H 129/81 10/13/20 03:47 99.8 F H 10/13/20 03:45 85 25 H 134/79 10/13/20 03:30 85 26 H 128/81 10/13/20 03:15 85 25 H 134/82 10/13/20 03:00 84 24 133/77 10/13/20 02:45 86 25 H 130/76 10/13/20 02:30 86 23 133/76 10/13/20 02:15 86 24 125/74 10/13/20 02:00 84 23 127/78 10/13/20 01:45 84 26 H 135/82 10/13/20 01:30 87 25 H 142/77 10/13/20 01:15 89 27 H 139/84 10/13/20 01:00 84 23 134/79 10/13/20 00:45 83 23 135/76 10/13/20 00:30 86 27 H 131/89 10/13/20 00:28 84 24 10/13/20 00:21 129/80 10/13/20 00:15 81 25 H 129/80 10/13/20 00:09 79 24 126/80 10/13/20 00:00 97.2 F L 81 81 26 H 126/80 10/12/20 23:45 82 25 H 119/80 10/12/20 23:30 78 24 125/73 10/12/20 23:15 78 23 127/74 10/12/20 23:00 81 24 125/83 10/12/20 22:45 78 23 132/74 10/12/20 22:30 78 23 129/77 10/12/20 22:15 81 23 129/75 10/12/20 22:00 81 25 H 128/68 10/12/20 21:51 82 127/73 10/12/20 21:45 85 25 H 127/73 10/12/20 21:30 83 25 H 119/74 10/12/20 21:15 84 24 131/83 10/12/20 21:00 85 29 H 120/70 10/12/20 20:45 81 26 H 116/69 10/12/20 20:30 80 24 116/65 10/12/20 20:15 83 25 H 130/63 10/12/20 20:04 90 137/80 10/12/20 20:00 99.3 F 81 83 25 H 137/80 10/12/20 19:45 85 26 H 136/84 10/12/20 19:30 77 26 H 139/88 10/12/20 19:15 74 25 H 142/86 10/12/20 19:00 78 27 H 149/92 10/12/20 18:45 75 25 H 141/88 10/12/20 18:30 72 24 152/91 10/12/20 18:15 75 25 H 149/96 Pulse Ox 10/13/20 16:36 100 10/13/20 16:00 10/13/20 14:09 10/13/20 12:05 99 10/13/20 08:40 10/13/20 08:00 97 10/13/20 07:53 10/13/20 07:45 96 10/13/20 07:30 96 10/13/20 07:27 100 10/13/20 07:15 97 10/13/20 07:00 96 10/13/20 06:45 96 10/13/20 06:30 95 10/13/20 06:15 98 10/13/20 06:00 97 10/13/20 05:45 96 10/13/20 05:30 98 10/13/20 05:15 97 10/13/20 05:00 100 10/13/20 04:45 97 10/13/20 04:30 98 10/13/20 04:15 97 10/13/20 04:02 100 10/13/20 04:00 97 10/13/20 03:47 10/13/20 03:45 97 10/13/20 03:30 97 10/13/20 03:15 97 10/13/20 03:00 97 10/13/20 02:45 98 10/13/20 02:30 98 10/13/20 02:15 97 10/13/20 02:00 97 10/13/20 01:45 97 10/13/20 01:30 97 10/13/20 01:15 99 10/13/20 01:00 100 10/13/20 00:45 97 10/13/20 00:30 99 10/13/20 00:28 10/13/20 00:21 100 10/13/20 00:15 99 10/13/20 00:09 100 10/13/20 00:00 100 10/12/20 23:45 98 10/12/20 23:30 98 10/12/20 23:15 99 10/12/20 23:00 98 10/12/20 22:45 98 10/12/20 22:30 98 10/12/20 22:15 98 10/12/20 22:00 97 10/12/20 21:51 10/12/20 21:45 97 10/12/20 21:30 99 10/12/20 21:15 10/12/20 21:00 98 10/12/20 20:45 98 10/12/20 20:30 98 10/12/20 20:15 98 10/12/20 20:04 100 10/12/20 20:00 98 10/12/20 19:45 98 10/12/20 19:30 99 10/12/20 19:15 98 10/12/20 19:00 99 10/12/20 18:45 100 10/12/20 18:30 99 10/12/20 18:15 100 Intake and Output 10/13/20 10/13/20 10/13/20 06:59 14:59 22:59 Intake Total 853.800 230 Output Total 2050 650 Balance -1196.200 -420 Intake: IV 133.800 dexmedeTOMIDine 400 MCG 133.800 In NaCl 0.9% 100 ml @ 0.2 MCG/KG/HR 7.249 mls/hr IV TITRATE [facility] Rx#: [id number] Intake, Free Water 200 100 Tube Feeding 520 130 Output: Gastric Drainage 0 Oral 0 Drainage 0 0 Left 0 0 Urine 2050 650 Indwelling Catheter 2050 650 Other: Total, Intake Amount 65 65 Total, Output Amount 550 650 Voiding Method Indwelling Catheter Indwelling Catheter Weight 127.1 kg Patient Weight 10/14/20 06:59 Weight 127.1 kg - Labs Labs: Abnormal lab results 10/12/20 10/13/20 10/13/20 Range/Units 21:33 07:00 07:00 WBC 23.6 H (4.5-11.0) K/mm3 RBC 3.26 L (3.65-5.03) M/mm3 Hgb 9.4 L (10.1-14.3) gm/dl Hct 28.7 L (30.3-42.9) % RDW 18.3 H (13.2-15.2) % ABG pH (7.320-7.450) POC ABG pCO2 (32.0-48.0) mmHg POC ABG pO2 (83-108) mmHg ABG Hemoglobin (12.0-17.5) ABG Oxyhemoglobin (94-98) ABG Sodium (136.0-145.0) mmol/L ABG Chloride (98-107) mmol/L ABG Glucose (65-95) mg/dL Carboxyhemoglobin (0.5-1.5) Sodium (137-145) mmol/L Potassium (3.6-5.0) mmol/L Chloride (98-107) mmol/L Carbon Dioxide (22-30) mmol/L POC Glucose 107 H (70-105) mg/dL Calcium (8.4-10.2) mg/dL Magnesium (1.7-2.3) mg/dL Arterial Blood Glucose (65-95) mg/dL Phenytoin 5.7 L (10.0-20.0) ug/mL 10/13/20 10/13/20 Range/Units 07:00 07:18 WBC (4.5-11.0) K/mm3 RBC (3.65-5.03) M/mm3 Hgb (10.1-14.3) gm/dl Hct (30.3-42.9) % RDW (13.2-15.2) % ABG pH 7.473 H (7.320-7.450) POC ABG pCO2 20.7 L (32.0-48.0) mmHg POC ABG pO2 137.9 H (83-108) mmHg ABG Hemoglobin 11.2 L (12.0-17.5) ABG Oxyhemoglobin 98.3 H (94-98) ABG Sodium 135.9 L (136.0-145.0) mmol/L ABG Chloride 111.0 H (98-107) mmol/L ABG Glucose 109 H (65-95) mg/dL Carboxyhemoglobin 0.3 L (0.5-1.5) Sodium 135 L (137-145) mmol/L Potassium 3.5 L (3.6-5.0) mmol/L Chloride 109.1 H (98-107) mmol/L Carbon Dioxide 18 L (22-30) mmol/L POC Glucose (70-105) mg/dL Calcium 7.3 L (8.4-10.2) mg/dL Magnesium 1.60 L (1.7-2.3) mg/dL Arterial Blood Glucose 109 H (65-95) mg/dL Phenytoin (10.0-20.0) ug/mL
[2020-10-13] MEDS: ACETAMINOPHEN 325 MG/10.15 ML ORAL LIQD UNIT DOSE FEEDTUBE PRN (21:38)
[2020-10-14] MEDS: IPRATROPIUM/ALBUTEROL SULFATE 3 ML AMPUL.NEB IH SCH ×3 (00:25→14:42)
[2020-10-14] MEDS: INSULIN REGULAR, HUMAN 100 UNIT/ML 3ML VIAL SUB-Q SCH ×6 (02:06→21:00)
[2020-10-14] MEDS: VANCOMYCIN 250 MG/10 ML ORAL LIQD PO SCH ×4 (02:42→22:15)
[2020-10-14] MEDS: fentaNYL 100 MCG/2 ML INJ IV PRN (03:20)
[2020-10-14] MEDS: DEXTROSE 10% IN WATER 1,000 ML IV SCH ×2 (03:25→16:06)
[2020-10-14 05:42] LABS: Hematocrit 31.8 % (30.3-42.9); Hemoglobin 10.7 gm/dl (10.1-14.3); Mean Corpuscular HGB Conc 34 % (30-34); Mean Corpuscular Volume 88 fl (79-97); Platelet Count 360 K/mm3 (140-440); Red Blood Count 3.61 M/mm3 (3.65-5.03); Red Cell Distribution Width 18.3 % (13.2-15.2)
[2020-10-14] MEDS: dexmedeTOMIDine 1,000 MCG in SODIUM CHLORIDE 0.9% 250ML 250 ML IV SCH ×2 (05:43→17:27)
[2020-10-14 05:59] LABS: Blood Urea Nitrogen 14 mg/dL (7-17); Calcium 8.4 mg/dL (8.4-10.2); Hemolysis Index 2
[2020-10-14 06:07] LABS: BUN/Creatinine Ratio 20
[2020-10-14 06:41] LABS: Total Cells Counted 100
[2020-10-14 06:42] LABS: Anisocytosis 1+; Hypochromasia Few; Platelet Estimate Consistent w Auto; Schistocytes Few; Stomatocytes Few; Target Cells Few
[2020-10-14] MEDS: SODIUM BICARBONATE 650 MG TAB PO SCH ×3 (08:01→22:16)
--- NOTE | 2020-10-14 08:32 | Progress Note ---
Assessment and Plan Assessment and plan: -- Sepsis with presumed Pneumonia Teated with iv abx, follow Cx -Completed cefepime course 5 days on 10/09/2020 -Check MRSA culture -Start vancomycin p.o. empirically for C. difficile total 10 days, given diarrhea and worsening leukocytosis, --Acute respiratory failure with hypoxia Patient intubated Vent management per CC --DIC (disseminated intravascular coagulation) vs HELLP syndrome Has anemia,thrombocytopenia and elevated liver enzymes Patient received multiple units of RBCs, FFP's, cryo Hematology/oncology recommendations appreciated Continue to trend fibrinogen and INR Critical care on board --Possible Eclampsia/HELLP Syndrome Patient presented with seizure-->hypoxia-->urgent C section-->hysterectomy for severe bleeding/DIC developed severe anemia-->received RBC, plt, FFP, cryo was on max pressors-->now off pressors still on vent, on sedation Hematology following --s/p Cardiac arrest x2 on admission and on 10/07 ACLS protocol followed by revival Echo showed preserved Ef --Shock s/p pressor support Likely hypovolemic. on empirical antibiotics for possible sepsis. Continue to monitor blood pressure closely Trend H&H and transfuse as needed --Lactic acidosis As a result of poor organ perfusion and possible sepsis Continue IV hydration. Lactic acid is trending down Nephrology on board --ADOLPH As a result of hypoperfusion and shock Continue IV hydration Cr stable, follow BMP --DVT prophylaxis Patient presented with DIC No anticoagulants The high probability of a clinically significant, sudden or life threatening deterioration of the [pulmonary] system(s) required my full and direct attention, intervention and personal management. The aggregate critical care t cristhian was [35] minutes. This time is in addition to time spent performing reported procedures but includes the following: [x] Data Review and interpretation [x] Patient assessment and monitoring of vital signs [x] Documentation [x] Medication orders and management brief History 30 year old -Greek female CHE 10/25/20 at 36w5d who presents with seizures in triage on 10/02/20. Pt was not able to provide history but per pt's , she presented to the hospital to return a 24 hour urine specimen for analysis. She then suddenly reported that she did not feel good. She was taken to labor and delivery and shortly after arrival, she began seizing. During this time, a code met was called because the patient became hypoxic. She was then noted to be without a pulse. Chest compressions were started immediately, and the patient was emergently taken to the operating room for delivery of the fetus. Off note, This patient has had care at [facility] with comanagement by [facility] since 11 wks complicated by ADHD, morbid obesity, gen eralized anxiety disorder, panic attacks, chronic narcotic use, fibromyalgia, GERD, Irritable Bowel Syndrome, Migraines, h/o endometrial ablation and ovarian vein embolization, genital herpes, insomnia, LGA fetus, nausea and vomiting, polyhydramnios, quad screen positive for Down's Syndrome, and previous x 3. She is GBS negative. 11:30: Pt brought to L&D triage for evaluation of possible labor. Pt accompanied by her spouse. Pt spouse poor historian; unable to obtain history- allergies at this time. Pt taken from registration to triage area via WC. Pt unresponsive, actively seizing with snorous respirations. software test manager, Kassy, called and requesting assistance. 11:35: Multiple staff at bedside. Pt 02 sat 67% on nonrebreather, unable to read BP at this time. Yifan Theodore CRNA, at bedside for intubation and assistance with IV insertion. INT attempt by multiple RNs unsuccessful at this time. 11:42: Pt being bagged by KORIN, 02% 79%. No pulse palpated, compressions started at this time; bharati young called and Dr. Newberry preparing OR for emergent c/s. 11:44: Continued compressions on stretcher while transporting pt to OR 1. Pt being bagged with jaw thrust manuever in place by KORIN Stringer student. 11:45: Arrival to OR 1. Dr. Newberry and Dr. Portillo present for emergent c/s. Code team arrived for continued care. patient revived and c/s done Patient has been bleeding from C/s site followed by supracervical hysterectomy for severe bleeding Patient transfused multiple units of PRBC, Patient in DIC. Transferred to the ICU 10/03. Patient seen and examined at bedside this morning. Patient is nonresponsive and mechanically ventilated. On pressors. Labs reviewed-has constanza kocytosis, anemia, thrombocytopenia, ADOLPH and lactic acidosis. Started on IV antibiotics to cover possible sepsis secondary to DIC. Hematology oncology recommendations appreciated-needs additional cryoprecipitate and FFP. Monitor D-dimer, fibrinogen and frequent labs. Nephrology consulted for lactic acidosis and ADOLPH. 10/04. Remains mechanically ventilated. Kevin antibiotics. Labs shows improved acidosis - lactic acid 3.5. Hb drop noted. Getting transfused 2 units PRBCs. Platelet count is ~40k. Continue to monitor labs closely. Critical care team on board. 10/05; xray reviewed, concerning for multifocal infilrate, likely underlying Pneumonia, will add ID consult to assist with management of this critically ill patient, start tube feed, closely monitor renal system 10/06: Resumed care, remains on mechanical ventilation. No active bleeding, H&H stable. Continue to monitor CBC and BMP. Continue IV antibiotic for underlying pneumonia. Follow critical care and ID recommendation. 10/07: Remains on mechanical ventilation. No active bleeding, H&H stable. Critical care following, wean off ventilation as tolerated. 10/08: Patient had another cardiac arrest last night. Remains on mechanical ventilation, update family. Continue supportive care -poor prognosis 10/09: Called patient mother and discussed about patient care and management. Answered all question to best of my knowledge and family satisfaction. Patient remains on mechanical ventilation, cardiac arrest x2 so far. Critically sick, poor prognosis 10/10: remains on mechanical ventilation. h/h stable, no active bleeding. monitor CBC/BMP 10/11: WBC trended up with diarrhea, started on vancomycin po. remains on MV, off pressor, tolerating TF 10/12: remains on MV, off pressor, tolerating TF. called family for update but unable to reach, could not leave message as it was full. cont supportive care, wean off vent as tolerated. 10/13/2020; patient is on mechanical ventilation, tolerating tube feeding. Edis damian has labored breathing. Neuro was consulted and recommend MRI. Patient is on Precedex. Rectal tube in place. 10/14/2020; patient is on mechanical ventilation, Precedex. Patient had fever and blood culture ordered. Patient is on IV vancomycin per ID recommendation. Neuro consulted and recommend MRI. Continue to monitor. Prognosis is guarded. History Interval history: Patient was seen and evaluated this morning Patient has labored breathing On vent and Precedex Patient is febrile Hospitalist Physical - Physical exam Narrative exam: vITAL SIGNS: Reviewed. GENERAL: Intubated HEAD: No signs of head trauma. EYES: Pupils are equal. MOUTH: OT in place NECK: No adenopathy, no JVD. CHEST: Rales posteriorly CARDIAC: normal S1 and S2, without murmurs, gallops, or rubs. ABDOMEN: Soft, non tender and non distended. surgical wound in tact, No rebound or guarding, and no masses palpated. Bowel Sounds normal. AVINASH drain intact MUSCULOSKELETAL: No edema NEUROLOGIC EXAM: Intubated SKIN: No obvious lesions - Constitutional Vitals: Temp Pulse Resp BP Pulse Ox 99.5 F 96 H 28 H 147/91 100 10/14/20 08:00 10/14/20 08:01 10/14/20 08:00 10/14/20 08:01 10/14/20 08:00 General appearance: Present: severe distress, well-nourished HEART Score - HEART Score Age: < 45 Risk factors: 1-2 risk factors - Critical Actions Critical Actions: >7 pts:50-65% risk of adverse cardiac event. Early invasive measures Results - Labs CBC & Chem 7: 10/14/20 04:00 10/14/20 04:00 Labs: Laboratory Last Values WBC 28.6 K/mm3 (4.5-11.0) H 10/14/20 04:00 RBC 3.61 M/mm3 (3.65-5.03) L 10/14/20 04:00 Hgb 10.7 gm/dl (10.1-14.3) 10/14/20 04:00 Hct 31.8 % (30.3-42.9) 10/14/20 04:00 MCV 88 fl (79-97) 10/14/20 04:00 MCH 30 pg (28-32) 10/14/20 04:00 MCHC 34 % (30-34) 10/14/20 04:00 RDW 18.3 % (13.2-15.2) H 10/14/20 04:00 Plt Count 360 K/mm3 (140-440) 10/14/20 04:00 Lymph % (Auto) 6.3 % (13.4-35.0) L 10/11/20 04:00 [place] % (Auto) 5.4 % (0.0-7.3) 10/11/20 04:00 Eos % (Auto) 0.9 % (0.0-4.3) 10/11/20 04:00 Baso % (Auto) 0.3 % (0.0-1.8) 10/11/20 04:00 Lymph # (Auto) 1.7 K/mm3 (1.2-5.4) 10/11/20 04:00 [place] # (Auto) 1.5 K/mm3 (0.0-0.8) H 10/11/20 04:00 Eos # (Auto) 0.3 K/mm3 (0.0-0.4) 10/11/20 04:00 Baso # (Auto) 0.1 K/mm3 (0.0-0.1) 10/11/20 04:00 Add Manual Diff Complete 10/14/20 04:00 Total Counted 100 10/14/20 04:00 Seg Neutrophils % 87.1 % (40.0-70.0) H 10/11/20 04:00 Seg Neuts % (Manual) 88.0 % (40.0-70.0) H 10/14/20 04:00 Band Neutrophils % 1.0 % 10/09/20 05:46 Lymphocytes % (Manual) 5.0 % (13.4-35.0) L 10/14/20 04:00 Reactive Lymphs % (Man) 1.0 % 10/02/20 12:18 Monocytes % (Manual) 5.0 % (0.0-7.3) 10/14/20 04:00 Eosinophils % (Manual) 1.0 % (0.0-4.3) 10/14/20 04:00 Myelocytes % 2.0 % 10/02/20 13:05 Metamyelocytes % 1.0 % 10/14/20 04:00 Nucleated RBC % Not Reportable 10/14/20 04:00 Seg Neutrophils # 23.5 K/mm3 (1.8-7.7) H 10/11/20 04:00 Seg Neutrophils # Man 25.2 K/mm3 (1.8-7.7) H 10/14/20 04:00 Band Neutrophils # 0.0 K/mm3 10/14/20 04:00 Lymphocytes # (Manual) 1.4 K/mm3 (1.2-5.4) 10/14/20 04:00 Abs React Lymphs (Man) 0.0 K/mm3 10/14/20 04:00 Monocytes # (Manual) 1.4 K/mm3 (0.0-0.8) H 10/14/20 04:00 Eosinophils # (Manual) 0.3 K/mm3 (0.0-0.4) 10/14/20 04:00 Basophils # (Manual) 0.0 K/mm3 (0.0-0.1) 10/14/20 04:00 Metamyelocytes # 0.3 K/mm3 10/14/20 04:00 Myelocytes # 0.0 K/mm3 10/14/20 04:00 Promyelocytes # 0.0 K/mm3 10/14/20 04:00 Blast Cells # 0.0 K/mm3 10/14/20 04:00 WBC Morphology Not Reportable 10/14/20 04:00 Hypersegmented Neuts Not Reportable 10/14/20 04:00 Hyposegmented Neuts Not Reportable 10/14/20 04:00 Hypogranular Neuts Not Reportable 10/14/20 04:00 Smudge Cells Not Reportable 10/14/20 04:00 Toxic Granulation Not Reportable 10/14/20 04:00 Toxic Vacuolation Not Reportable 10/14/20 04:00 Dohle Bodies Not Reportable 10/14/20 04:00 Pelger-Huet Anomaly Not Reportable 10/14/20 04:00 Ester Rods Not Reportable 10/14/20 04:00 Platelet Estimate Consistent w auto 10/14/20 04:00 Clumped Platelets Not Reportable 10/14/20 04:00 Plt Clumps, EDTA Not Reportable 10/14/20 04:00 Large Platelets Not Reportable 10/14/20 04:00 Giant Platelets Not Reportable 10/14/20 04:00 Platelet Satelliting Not Reportable 10/14/20 04:00 Plt Morphology Comment Not Reportable 10/14/20 04:00 RBC Morphology Not Reportable 10/14/20 04:00 Dimorphic RBCs Not Reportable 10/14/20 04:00 Polychromasia Not Reportable 10/14/20 04:00 Hypochromasia Few 10/14/20 04:00 Poikilocytosis Not Reportable 10/14/20 04:00 Anisocytosis 1+ 10/14/20 04:00 Microcytosis Not Reportable 10/14/20 04:00 Macrocytosis Not Reportable 10/14/20 04:00 Spherocytes Not Reportable 10/14/20 04:00 Pappenheimer Bodies Not Reportable 10/14/20 04:00 Sickle Cells Not Reportable 10/14/20 04:00 Target Cells Few 10/14/20 04:00 Tear Drop Cells Not Reportable 10/14/20 04:00 Ovalocytes Not Reportable 10/14/20 04:00 Stomatocytes Few 10/14/20 04:00 Helmet Cells Not Reportable 10/14/20 04:00 [place] Bodies Not Reportable 10/14/20 04:00 [place] Rings Not Reportable 10/14/20 04:00 Antoine Cells Not Reportable 10/14/20 04:00 Bite Cells Not Reportable 10/14/20 04:00 Crenated Cell Not Reportable 10/14/20 04:00 Elliptocytes Not Reportable 10/14/20 04:00 Acanthocytes (Spur) Not Reportable 10/14/20 04:00 Rouleaux Not Reportable 10/14/20 04:00 Hemoglobin C Crystals Not Reportable 10/14/20 04:00 Schistocytes Few 10/14/20 04:00 Malaria parasites Not Reportable 10/14/20 04:00 Sharad Bodies Not Reportable 10/14/20 04:00 Hem Pathologist Commnt No 10/14/20 04:00 PT 13.0 Sec. (12.2-14.9) 10/05/20 05:00 INR 1.00 (0.87-1.13) 10/05/20 05:00 APTT 31.6 Sec. (24.2-36.6) 10/03/20 00:40 Fibrinogen 336 mg/dl (211-480) 10/04/20 10:00 D-Dimer > 84576 ng/mlDDU (0-234) H 10/04/20 10:00 ABG pH 7.473 (7.320-7.450) H 10/13/20 07:18 POC ABG pCO2 20.7 mmHg (32.0-48.0) L 10/13/20 07:18 ABG pCO2 25.0 mm Hg 10/10/20 04:42 POC ABG pO2 137.9 mmHg (83-108) H 10/13/20 07:18 ABG pO2 95.2 mm Hg (80.0-90.0) H 10/10/20 04:42 POC ABG HCO3 14.8 10/13/20 07:18 ABG HCO3 20.6 mmol/L (20.0-26.0) 10/10/20 04:42 ABG O2 Saturation 97.9 % (95.0-99.0) 10/10/20 04:42 ABG O2 Content 15.4 (0.0-44) 10/10/20 04:42 POC ABG Base Excess -6.9 10/13/20 07:18 ABG Base Excess -0.8 mmol/L (-2.0-3.0) 10/10/20 04:42 ABG Hemoglobin 11.2 (12.0-17.5) L 10/13/20 07:18 ABG Oxyhemoglobin 98.3 (94-98) H 10/13/20 07:18 ABG Carboxyhemoglobin 1.4 % (0.0-5.0) 10/10/20 04:42 ABG Methemoglobin 0.3 (0.0-1.5) 10/13/20 07:18 ABG Sodium 135.9 mmol/L (136.0-145.0) L 10/13/20 07:18 ABG Potassium 3.7 mmol/L (3.40-4.50) 10/13/20 07:18 ABG Chloride 111.0 mmol/L (98-107) H 10/13/20 07:18 ABG Glucose 109 mg/dL (65-95) H 10/13/20 07:18 VBG pH 6.949 (7.320-7.420) L* 10/02/20 Unknown Oxyhemoglobin 95.9 % (95.0-99.0) 10/10/20 04:42 Carboxyhemoglobin 0.3 (0.5-1.5) L 10/13/20 07:18 FiO2 30.0 10/13/20 07:18 Sodium 139 mmol/L (137-145) 10/14/20 04:00 Potassium 4.0 mmol/L (3.6-5.0) 10/14/20 04:00 Chloride 109.9 mmol/L (98-107) H 10/14/20 04:00 Carbon Dioxide 17 mmol/L (22-30) L 10/14/20 04:00 Anion Gap 16 mmol/L 10/14/20 04:00 BUN 14 mg/dL (7-17) 10/14/20 04:00 Creatinine 0.7 mg/dL (0.6-1.2) 10/14/20 04:00 Estimated GFR > 60 ml/min 10/14/20 04:00 BUN/Creatinine Ratio 20 % 10/14/20 04:00 Glucose 94 mg/dL (65-100) 10/14/20 04:00 POC Glucose 100 mg/dL (70-105) 10/14/20 07:54 Lactic Acid 1.90 mmol/L (0.7-2.0) 10/04/20 22:00 Uric Acid 7.5 mg/dL (3.5-7.6) 10/02/20 13:05 Calcium 8.4 mg/dL (8.4-10.2) D 10/14/20 04:00 Ionized Calcium 4.4 mg/dL (4.8-5.6) L 10/07/20 21:00 Phosphorus 3.40 mg/dL (2.5-4.5) D 10/11/20 04:00 Magnesium 1.60 mg/dL (1.7-2.3) L 10/13/20 07:00 Total Bilirubin 0.90 mg/dL (0.1-1.2) 10/10/20 04:00 AST 122 units/L (5-40) H 10/10/20 04:00 ALT 81 units/L (7-56) H 10/10/20 04:00 Alkaline Phosphatase 94 units/L (35-129) 10/10/20 04:00 Lactate Dehydrogenase 769 units/L (91-180) H 10/02/20 13:05 NT-Pro-B Natriuret Pep 2788 pg/mL (0-450) H 10/04/20 10:00 Total Protein 5.2 g/dL (6.3-8.2) L 10/10/20 04:00 Albumin 2.7 g/dL (3.9-5) L 10/10/20 04:00 Albumin/Globulin Ratio 1.1 % 10/10/20 04:00 Procalcitonin 0.58 ng/mL (<0.15) 10/11/20 15:33 Arterial Blood Glucose 109 mg/dL (65-95) H 10/13/20 07:18 Arterial Blood Ionized Calcium 4.6 mg/dL (4.6-5.3) 10/13/20 07:18 Urine Color Yellow (Yellow) 10/11/20 13:26 Urine Turbidity Clear (Clear) 10/11/20 13:26 Urine pH 7.0 (5.0-7.0) 10/11/20 13:26 Ur Specific [place] 1.014 (1.003-1.030) 10/11/20 13:26 Urine Protein 100 mg/dl mg/dL (Negative) 10/11/20 13:26 Urine Glucose (UA) Neg mg/dL (Negative) 10/11/20 13:26 Urine Ketones Neg mg/dL (Negative) 10/11/20 13:26 Urine Blood Mod (Negative) 10/11/20 13:26 Urine Nitrite Neg (Negative) 10/11/20 13:26 Urine Bilirubin Neg (Negative) 10/11/20 13:26 Urine Urobilinogen < 2.0 mg/dL (<2.0) 10/11/20 13:26 Ur Leukocyte Esterase Sm (Negative) 10/11/20 13:26 Urine WBC (Auto) 24.0 /HPF (0.0-6.0) H 10/11/20 13:26 Urine RBC (Auto) 59.0 /HPF (0.0-6.0) 10/11/20 13:26 Urine Bacteria (Auto) 1+ /HPF (Negative) 10/11/20 13:26 Urine Mucus Few /HPF 10/11/20 13:26 Phenytoin 5.7 ug/mL (10.0-20.0) L 10/13/20 07:00 Coronavirus (PCR) Negative (Negative) 10/08/20 14:15 Blood Type O POSITIVE 10/02/20 12:50 Antibody Screen Negative 10/02/20 12:50 Crossmatch See Detail 10/02/20 12:50 Microbiology: Microbiology 10/11/20 15:33 Peripheral/Venous Blood Culture - Preliminary NO GROWTH AFTER 48 HOURS 10/11/20 15:33 Peripheral/Venous Blood Culture - Preliminary NO GROWTH AFTER 48 HOURS - Diagnostic Impressions Diagnostic Impressions: Echocardiogram 10/03/20 13:42 Transthoracic Echocardiogram Indication: S/P Cardiac Arrest R/O Cardiomyopathy BP: 133/71 Conclusions *Global left ventricular systolic function is normal. *The estimated ejection fraction is 60-65%. *There is trace of mitral regurgitation. *The right 0heart chambers are both slightly dilated. *There is mild tricuspid regurgitation. *There is mild-moderate pulmonary hypertension. *The right ventricular systolic pressure is calculated at 44 mmHg. *The study quality is technically difficult. Findings Procedure Info: The study quality is technically difficult. The study is technically limited due to patient body habitus. The study was technically limited due to the patient's inability to lay in the left lateral decubitus position. Left Ventricle: The left ventricular chamber size is normal. There is no left ventricular hypertrophy. Global left ventricular systolic function is normal. The estimated ejection fraction is 60-65%. Left Atrium: The left atrial chamber size is normal. Right Ventricle: The right ventricle is slightly dilated. Right Atrium: The right atrium is mildly dilated. Aortic Valve: The aortic valve leaflets are mildly thickened. There is no evidence of aortic regurgitation. There is no evidence of aortic stenosis. Mitral Valve: The mitral valve leaflets are mildly thickened. There is trace of mitral regurgitation. There is no evidence of mitral stenosis. Tricuspid Valve: There is mild tricuspid regurgitation. The right ventricular systolic pressure is calculated at 44 mmHg. There is evidence of mild pulmonary hypertension. Pulmonic Valve: There is trace pulmonic regurgitation. Pericardium: There is no pericardial effusion. Aorta: There is no dilatation of the ascending aorta. There is no dilatation of the aortic root. Venous: The inferior vena cava is dilated. Measurements Chambers 2D Name Value Normal Range IVSd (2D) 1 cm (0.6 - 1.1) LVPWd (2D) 1.01 cm (0.6 - 1.1) LVIDd (2D) 4.58 cm (3.7 - 5.6) LVIDs (2D) 3.17 cm (2 - 3.8) LV FS (2D) 30.93 % - EF Teichholz (2D) 58.66 % - Ao root diameter (2D) 2.94 cm (2 - 3.7) Volumes/Mass Name Value Normal Range LA ESV SP 4CH (A/L) 72.82 ml - LA ESV SP 2CH (A/L) 66.86 ml - LA ESV BP (A/L) 74.49 ml - LA ESV SP 4CH (MOD) 71.03 ml - LA ESV SP 2CH (MOD) 64.3 ml - LV EDV SP 4CH (MOD) 98.82 ml - LV ESV SP 4CH (MOD) 24.8 ml - EF SP 4CH (MOD) 74.9 % - LV EDV SP 2CH (MOD) 86.1 ml - LV ESV SP 2CH (MOD) 36.93 ml - EF SP 2CH (MOD) 57.11 % - LV EDV BP 94.4 ml - LV ESV BP 32.66 ml - BP EF (MOD) 65.4 % - Diastolic/Systolic Function Name Value Normal Range MV E-wave Vmax 1.04 m/sec - MV deceleration time 160.46 msec - MV A-wave Vmax 0.92 m/sec - MV E:A ratio 1.14 ratio - Aortic Valve Name Value Normal Range AV Vmax 2.12 m/sec - AV VTI 22.37 cm - AV peak gradient 17.95 mmHg - AV mean gradient 7.29 mmHg - LVOT diameter 2.01 cm - LVOT Vmax 1.8 m/sec - LVOT VTI 27.17 cm - LVOT peak gradient 12.91 mmHg - LVOT mean gradient 6.83 mmHg - SV LVOT 86.42 ml - ANITA (continuity Vmax) 2.7 cm2 - ANITA (continuity VTI) 3.86 cm2 - Ascending Ao 3.18 cm - Tricuspid Valve Name Value Normal Range TV E-wave Vmax 0.88 m/sec - TR Vmax 3.01 m/sec - TR peak gradient 36.27 mmHg - RAP 8 mmHg - RVSP 44 mmHg - IVC diameter 2.65 cm (1.2 - 2.3) Pulmonic Valve/Qp:Qs Name Value Normal Range PV Vmax 1.22 m/sec - PV peak gradient 5.91 mmHg - RVOT Vmax 0.87 m/sec - RVOT VTI 13.32 cm - RVOT peak gradient 3 mmHg - PV acceleration time 110.37 msec - [place]/IV: Voiding Method Indwelling Catheter IV Catheter Type [Right Upper PICC Line arm] IV Catheter Type [Left Triple Lumen Cath Internal Jugular] IV Catheter Type [Left Hand] Peripheral IV IV Catheter Type [Left Peripheral IV Antecubital] Active Medications - Current Medications Current Medications: Generic Name Dose Route Start Last Admin Trade Name Freq PRN Reason Stop Dose Admin Acetaminophen 650 mg 10/05/20 16:34 10/13/20 21:38 Acetaminophen 325 Mg/10.15 Ml Oral Liqd Unit Dose FEEDTUBE 650 mg Q6H PRN Administration Non Cardiac Pain or Temp>100.5 Albuterol/Ipratropium 1 ampul 10/10/20 20:00 10/14/20 00:25 Ipratropium/Albuterol Sulfate 3 Ml Ampul.Neb IH 1 ampul Q8HRT ERINN Administration Lipase/Protease/Amylase 1 each 10/05/20 11:09 Lipase 10,500/Protease 25,000/Amylase 43,750 (Units) Dr Barakat FEEDTUBE PRN PRN For Clogged Feeding Tube Buspirone HCl 10 mg 10/10/20 10:00 10/13/20 21:39 Buspirone 10 Mg Tab PO 10 mg BID ERINN Administration Buspirone HCl 5 mg 10/10/20 10:00 10/13/20 21:40 Buspirone 5 Mg Tab PO 5 mg BID ERINN Administration Famotidine 20 mg 10/07/20 10:00 10/13/20 21:40 Famotidine 20 Mg Tab PO 20 mg BID ERINN Administration Fentanyl 50 mcg 10/10/20 19:54 10/14/20 03:20 Fentanyl 100 Mcg/2 Ml Inj IV 50 mcg Q3HR PRN Administration Labored breathing Hydralazine HCl 20 mg 10/07/20 11:49 10/11/20 03:14 Hydralazine 20 Mg/1 Ml Inj IV 20 mg Q6H PRN Administration SBP >170 Hydrophilic Ointment 1 applic 10/04/20 06:55 Lip Therapy Vaseline TP Q2HR PRN Dry Lips Dexmedetomidine HCl 1,000 mcg/ 260 mls @ 7.249 mls/hr 10/13/20 05:00 10/14/20 05:43 Sodium Chloride IV 0.7 mcg/kg/hr TITRATE ERINN 25.371 mls/hr Administration Protocol 0.2 MCG/KG/HR Dextrose 1,000 mls @ 75 mls/hr 10/13/20 11:00 10/14/20 03:25 D10w IV 75 mls/hr DIRECT ERINN Administration Insulin Human Regular 0 unit 10/12/20 13:00 10/14/20 05:47 Insulin Regular, Human 100 Unit/Ml 3ml Vial SUB-Q Not Given Q4H [facility] Protocol Labetalol HCl 100 mg 10/07/20 14:00 10/14/20 08:01 Labetalol 100 Mg Tab PO 100 mg TID ERINN Administration Lorazepam 2 mg 10/02/20 22:05 10/10/20 16:56 Lorazepam 2 Mg/Ml Vial IV 2 mg Q2H PRN Administration Seizures Multi-Ingred Cream/Lotion/Oil/Oint 1 applic 10/04/20 06:55 Mineral Oil/Petrolatum, White Ophth Oint 3.5 Gm OU Q4HR PRN Dry Eye(s) Simple Syrup 15 ml 10/05/20 11:09 Simple Syrup 15 Ml FEEDTUBE PRN PRN Hypoglycemia Simple Syrup 30 ml 10/05/20 11:09 Simple Syrup 15 Ml FEEDTUBE PRN PRN Hypoglycemia Sodium Bicarbonate 325 mg 10/05/20 11:09 Sodium Bicarbonate 325 Mg Tab FEEDTUBE PRN PRN For Clogged Feeding Tube Sodium Bicarbonate 1,300 mg 10/13/20 14:00 10/14/20 08:01 Sodium Bicarbonate 650 Mg Tab PO 1,300 mg TID ERINN Administration Topiramate 50 mg 10/05/20 11:00 10/13/20 21:39 Topiramate Tab 25 Mg Tab PO 50 mg Q12HR ERINN Administration Vancomycin HCl 125 mg 10/11/20 14:00 10/14/20 08:03 Vancomycin 250 Mg/10 Ml Oral Liqd PO 10/18/20 20:01 125 mg Q6H ERINN Administration Protocol Nutrition/Malnutrition Assess - Dietary Evaluation Nutrition/Malnutrition Findings: Nutrition Notes Start: 10/04/20 11:13 Freq: Status: Active Protocol: Document 10/12/20 12:19 (Rec: 10/12/20 12:31 [email or web address]) Nutrition Notes Initial or Follow up Reassessment Current Diagnosis Acute Kidney Injury, Respiratory Failure Other Pertinent Diagnosis Cardiac arrest, s/p c-sectuion and supracervial hysterectomy Current Diet Vital AF 1.2 at 65ml/hr Labs/Tests Na 135 K 3.1 Pertinent Medications KCl 10 mEq Vancomyosin Height 5 ft 8 in Weight 127.1 kg [place] Body Weight (kg) 63.63 BMI 42.5 Weight Status Morbidly Obese Subjective/Other Information FU for TF tolerance. Pt may get PEG next week. Percent of energy/protein needs met: 100%/74% Burn Absent Trauma Absent GI Symptoms Diarrhea Food Allergy Yes Current % PO Negligible Minimum of two criteria No physical signs of malnutrition #1 Nutrition Diagnosis Inadequate oral intake Diagnosis Progress(for reassessment Continues documentation) Is patient on ventilator? Yes Is Patient Ambulatory and/or Out of Bed No REE-([facility]-confined to bed) 2436.948 Kcal/Kg value to use for calculation 14 Approximate Energy Requirements Using 1779 kcal/Kg Calculation Used for Recommendations Kcal/kg Additional Notes Protein needs are up to 159g ( up to 2.5g/kg) Fluid needs are 1ml/kcal Nutrition Intervention Change Diet Order: Continue TF Nutrition Support: Vital AF 1.2 at 65 ml/hr. Flush with 100 ml q4h Kcal 1,872 Protein (gm) 117 Fluid (mL) 1,265 Goal #1 Meet at least 75% of energy and protein needs via TF Anticipated Discharge Needs: Unable to determine at this time Follow-Up By: 10/15/20 Additional Comments FU for TF tolerance
[2020-10-14] MEDS: FAMOTIDINE 20 MG TAB PO SCH ×2 (11:14→21:46)
[2020-10-14] MEDS: busPIRone 5 MG TAB PO SCH ×2 (11:14→22:15)
[2020-10-14] MEDS: busPIRone 10 MG TAB PO SCH ×2 (11:14→22:15)
[2020-10-14] MEDS: TOPIRAMATE TAB 25 MG TAB PO SCH (11:15)
[2020-10-14] MEDS: ACETAMINOPHEN 325 MG/10.15 ML ORAL LIQD UNIT DOSE FEEDTUBE PRN (11:37)
[2020-10-14] MEDS ORDERED: VANCOMYCIN 1,750 MG in SODIUM CHLORIDE 0.9% 500 ML 500 ML IV ONE (12:46)
--- NOTE | 2020-10-14 12:47 | Progress Note ---
Assessment and Plan Cultures: 10/05/2020 Blood culture: no growth 10/11/2020 blood culture: No growth 10/11/2020 tracheal aspirate: Usual respiratory jaylan A/P: 30-year-old female with GERD, hypertension, seizure disorder was admitted to the hospital at 36 weeks with seizures. She became hypoxic and pulseless requiring CPR. Following emergent section, patient developed hemorrhage, DIC. She has been admitted to ICU, remains on the vent: #Status post cardiac arrest 10/07/2020: Apparently had a brief code due to ?ET tube clot/plugging #Shock, DIC/persistent fever: Secondary to hemorrhage, ?possible sepsis. Possible pneumonia versus fluid overload. ?Central fever v/s from VTE. Noted diarrhea ? Cdiff #Acute kidney injury: resolved #Acute respiratory failure: remains on the vent. #Transaminitis: ?HELLP. Improving. #Preeclampsia # hemorrhage: Status post , status post supracervical hysterectomy. #Encephalopathy post cardiac arrest ? anoxic brain injury. Neurology on board. Recs: -Continue vancomycin p.o. empirically for C. difficile -f/u VTE eval -Agree with repeat blood cultures -Empiric cefepime, Flagyl and IV vancomycin ordered -If fevers persist, please get CT abdomen, pelvis with IV contrast Venancio Craven MD, FACP [facility] ([facility] O: [phone] F: [phone] Subjective Date of service: 10/14/20 Principal diagnosis: Eclampsia/HELLP Syndrome, ADOLPH, DIC; s/p , s/p supracervical hyst Interval history: Remains on the vent. Febrile. Seems more awake today, opens eyes, doesn't follow commands. Objective - Exam Narrative Exam: Physical Exam: Constitutional: more awake, intubated, on the vent Head, Ears, Nose: Normocephalic, atraumatic. External ears, nose normal Eyes: Conjunctivae/corneas clear. No icterus. No ptosis. Neck: intubated Oral: intubated Cardiovascular: S1, S2 + Respiratory: AE fair bilaterally and equal GI: Soft, bowel sounds +. lower abdominal incision present with dressing Musculoskeletal: No pedal edema, no cyanosis. Skin: No rash or abscess Hem/Lymphatic: No palpable cervical or supraclavicular nodes. No lymphangitis Psych: no agitation Neurological: more awake, doesn't follow commands, but opens eyes, intubated, on the vent, exam limited - Constitutional Vitals: Vital Signs Temp Pulse Resp BP Pulse Ox 101.1 F H 93 H 30 H 172/99 100 10/14/20 11:37 10/14/20 12:02 10/14/20 11:00 10/14/20 12:02 10/14/20 12:02 Temperature -Last 24 Hours Temperature 101.1 F Temperature 99.5 F Temperature 100.1 F Temperature 100.0 F Temperature 100.6 F Temperature 99.3 F - Labs CBC & Chem 7: 10/14/20 04:00 10/14/20 04:00 Labs: Abnormal lab results 10/14/20 10/14/20 Range/Units 04:00 04:00 WBC 28.6 H (4.5-11.0) K/mm3 RBC 3.61 L (3.65-5.03) M/mm3 RDW 18.3 H (13.2-15.2) % Seg Neuts % (Manual) 88.0 H (40.0-70.0) % Lymphocytes % (Manual) 5.0 L (13.4-35.0) % Seg Neutrophils # Man 25.2 H (1.8-7.7) K/mm3 Monocytes # (Manual) 1.4 H (0.0-0.8) K/mm3 Chloride 109.9 H (98-107) mmol/L Carbon Dioxide 17 L (22-30) mmol/L
[2020-10-14] MEDS ORDERED: VANCOMYCIN PHARMACY TO DOSE IV SCH (13:00)
[2020-10-14] MEDS ORDERED: VANCOMYCIN 2,000 MG in SODIUM CHLORIDE 0.9% 500 ML 500 ML IV ONE (14:00)
[2020-10-14] MEDS: metroNIDAZOLE/NS 500 MG/100 ML 500 MG/100 ML BAG IV SCH ×2 (14:08→23:00)
[2020-10-14] MEDS: hydrALAZINE 20 MG/1 ML INJ IV PRN (14:10)
--- NOTE | 2020-10-14 15:55 | Progress Note ---
Assessment and Plan 30 y/o female with Eclampsia, s/p emergent section with DIC, acute respiratory failure and worsening renal function. 10/14/2020: Await MRI. Continue Precedex and only use PRN fent pushes. CM states that there is a . Now with persistent fever, will obtain CT abdomen pelvis with contrast to see if source for fevers can be found. Continue D10 as sugars are still not elevated. 10/12/2020: Patient seen on 10/12 but note entered late. Formal neurology consult today. Hold all sedation if possible and only use precedex. CM to find out if there is truly a or if the decisions would fall on mother as I do not know the ages of her children but I don't think they are of age to make decisions. Guarded prognosis given mental state. 10/08/2020: Will start patient on precedex today. Plan is to wean off fent drip. Will increase buspar to BID. Need to see patient on as little sedation as possible to determine neurological status. EEG has still not been read. Mag stopped yesterday. Largest concern now is neurologic function. 10/07/2020: Head CT unremarkable. Await EEG to be read. Will stop mag Drip. If seizures occur then will load with Keppra and start BID dosing of this. Appreciate OB note. Continue D10 as sugars are still not severely elevated until feeds are at goal. PRN ativan present as well. Will add dilaudid for pain control. Increased BB to TID and added PRN hydralazine 10/06/2020: Stat Head CT today. Likely needs EEG. Will order. Continue Mag drip and follow up levels. Continue feeds. Continue to wean FiO2 as tolerated. Hold sedatives but can give PRN ativan as needed for seizure activity. Continue D10 as Tube feeds are not at goal yet. Guarded prognosis with mental state. 10/05/2020: Feed today. Stop Albumin and Abx. Will stop D10 once feeds start but will continue q2 hour FSBS until 3 consecutive >180. H/H stable. Will continue to aggressively wean FiO2. Patient has a 6.5 tube that will likely impede PSV trials given her size so will attempt to change out. Also will restart her home meds for anxiety and chronic migraine therapy. Prognosis is still guarded but promising given her hemodynamic stability. Continue chowdhury for accurate urine out put. 10/04/2020: Much improved today. Still very ill however. Down to just one pressor. Still with good urine output. Await chemistry results from this am. Likely can stop Bicarb drip given improvement in pH but would like to see bicarb on blood work. Agree with continued transfusion of blood products. Needs fibrinongen levels as well as repeat coags. I cannot see the standing orders on my screen so will call down to lab and let them know what's needed. I know she has had at leas 2 cryo's but I am not exactly sure if the count is accurate in the computer in regards to PRBC's and FFP's. Platelets lower this am but still greater than 30K. Continue chowdhury for I/O measurement. Will start to wean FiO2 on vent. CXR looks like edema but oxygenation is stable right now. Resuscitation is the most important thing right now. Will continue abx therapy at least 24 more hours. Prognosis is still very guarded but patient showing signs of improvement. 1. CV-Extremely volume deplete as well as intrasvascular depletion. Will continue to bolus with LR and saline as needed. Will add Albumin to help with intravascular volume. Spoke with OB attending over phone yesterday. No acute indication for steroids at this time. Serial H/H's given maximum pressor requirements. Will transfuse to keep up with AVINASH drain and help with weaning. Severely acidotic but improving. Likely adding to pressor requirement. GOAL is map of 65 and will wean accordingly. Will start to wean Sohail first. Ordered art line as well. 2. Heme-DIC secondary to Eclampsia, possible sepsis but white count could be stress related. Will continue to transfuse PRBC's and FFP with Cryo as needed. Follow Fibrinogen levels. Tele Heme has been consulted and note reviewed. Will give one cryo for every 6 units of PRBC's transfused. has gotten one cryo, awaiting the other to thaw out. Plts at 72K right now. Hold on further transfusion. May need to consider Factor VII if execessive bleeding continues. Will also put on broad spec abx therapy incase of possible sepsis causing DIC. Hopeful with correction of coaguloapthy she will improve. 3. Very very guarded prognosis. Will continue aggressive resuscitation. Family to come visit given exceptional case and extremely guarded prognosis. CCT 31 minutes. Subjective Date of service: 10/14/20 Principal diagnosis: Eclampsia/HELLP Syndrome, ADOLPH, DIC; s/p , s/p supracervical hyst Interval history: Awaiting MRI. Mental state is unchanged. Now spiking temps. Highest today at 101. Reviewed ID note and ordered CT ABDOMEN PELVIS with contrast. Objective Vital Signs - 12hr 10/14/20 10/14/20 10/14/20 04:00 04:15 04:17 Temperature 100.1 F H Pulse Rate 102 H 100 H 100 H Pulse Rate [ Anterior Bilateral Throughout] Pulse Rate [ 98 H From Monitor] Respiratory 27 H 25 H Rate Respiratory Rate [Anterior Bilateral Throughout] Blood Pressure 173/91 146/78 146/78 O2 Sat by Pulse 98 96 99 Oximetry 10/14/20 10/14/20 10/14/20 04:30 04:46 05:00 Temperature Pulse Rate 106 H 103 H 102 H Pulse Rate [ Anterior Bilateral Throughout] Pulse Rate [ From Monitor] Respiratory 35 H 30 H 30 H Rate Respiratory Rate [Anterior Bilateral Throughout] Blood Pressure 163/108 166/89 156/93 O2 Sat by Pulse 99 97 97 Oximetry 10/14/20 10/14/20 10/14/20 05:16 05:30 05:45 Temperature Pulse Rate 96 H 101 H Pulse Rate [ Anterior Bilateral Throughout] Pulse Rate [ From Monitor] Respiratory 28 H 27 H Rate Respiratory Rate [Anterior Bilateral Throughout] Blood Pressure 156/93 169/105 176/103 O2 Sat by Pulse 98 97 97 Oximetry 10/14/20 10/14/20 10/14/20 06:00 06:15 06:30 Temperature Pulse Rate 101 H 103 H 101 H Pulse Rate [ Anterior Bilateral Throughout] Pulse Rate [ From Monitor] Respiratory 28 H 29 H 29 H Rate Respiratory Rate [Anterior Bilateral Throughout] Blood Pressure 179/98 178/97 159/96 O2 Sat by Pulse 98 98 96 Oximetry 10/14/20 10/14/20 10/14/20 06:45 07:00 07:15 Temperature Pulse Rate 102 H 93 H 99 H Pulse Rate [ Anterior Bilateral Throughout] Pulse Rate [ From Monitor] Respiratory 28 H 26 H 28 H Rate Respiratory Rate [Anterior Bilateral Throughout] Blood Pressure 150/102 162/92 158/95 O2 Sat by Pulse 97 97 98 Oximetry 10/14/20 10/14/20 10/14/20 07:30 07:45 08:00 Temperature 99.5 F Pulse Rate 98 H 106 H 96 H Pulse Rate [ Anterior Bilateral Throughout] Pulse Rate [ 97 H From Monitor] Respiratory 28 H 32 H 28 H Rate Respiratory Rate [Anterior Bilateral Throughout] Blood Pressure 152/94 182/112 147/91 O2 Sat by Pulse 96 98 96 Oximetry 10/14/20 10/14/20 10/14/20 08:01 08:15 08:30 Temperature Pulse Rate 96 H 97 H 94 H Pulse Rate [ Anterior Bilateral Throughout] Pulse Rate [ From Monitor] Respiratory 29 H 29 H Rate Respiratory Rate [Anterior Bilateral Throughout] Blood Pressure 147/91 145/96 154/93 O2 Sat by Pulse 99 98 Oximetry 10/14/20 10/14/20 10/14/20 08:37 08:45 09:00 Temperature Pulse Rate 94 H 94 H 98 H Pulse Rate [ Anterior Bilateral Throughout] Pulse Rate [ From Monitor] Respiratory 27 H 29 H Rate Respiratory Rate [Anterior Bilateral Throughout] Blood Pressure 154/93 150/95 163/97 O2 Sat by Pulse 100 98 98 Oximetry 10/14/20 10/14/20 10/14/20 09:15 09:16 09:30 Temperature Pulse Rate 97 H 96 H Pulse Rate [ 98 H Anterior Bilateral Throughout] Pulse Rate [ From Monitor] Respiratory 29 H 31 H Rate Respiratory 31 H Rate [Anterior Bilateral Throughout] Blood Pressure 157/99 166/101 O2 Sat by Pulse 97 97 Oximetry 10/14/20 10/14/20 10/14/20 09:45 10:00 10:15 Temperature Pulse Rate 98 H 96 H 100 H Pulse Rate [ Anterior Bilateral Throughout] Pulse Rate [ From Monitor] Respiratory 31 H 29 H 32 H Rate Respiratory Rate [Anterior Bilateral Throughout] Blood Pressure 163/95 145/93 140/101 O2 Sat by Pulse 98 97 98 Oximetry 10/14/20 10/14/20 10/14/20 10:30 10:45 11:00 Temperature Pulse Rate 94 H 99 H 96 H Pulse Rate [ Anterior Bilateral Throughout] Pulse Rate [ From Monitor] Respiratory 27 H 29 H 30 H Rate Respiratory Rate [Anterior Bilateral Throughout] Blood Pressure 143/93 149/95 155/98 O2 Sat by Pulse 97 97 97 Oximetry 10/14/20 10/14/20 10/14/20 11:15 11:30 11:37 Temperature 101.1 F H Pulse Rate 98 H 101 H Pulse Rate [ Anterior Bilateral Throughout] Pulse Rate [ From Monitor] Respiratory 30 H 32 H Rate Respiratory Rate [Anterior Bilateral Throughout] Blood Pressure 159/89 163/85 O2 Sat by Pulse 97 97 Oximetry 10/14/20 10/14/20 10/14/20 11:45 12:00 12:02 Temperature Pulse Rate 101 H 96 H 93 H Pulse Rate [ Anterior Bilateral Throughout] Pulse Rate [ From Monitor] Respiratory 30 H 29 H Rate Respiratory Rate [Anterior Bilateral Throughout] Blood Pressure 162/96 172/93 172/99 O2 Sat by Pulse 98 97 100 Oximetry 10/14/20 10/14/20 10/14/20 12:15 12:30 12:45 Temperature Pulse Rate 93 H 99 H 95 H Pulse Rate [ Anterior Bilateral Throughout] Pulse Rate [ From Monitor] Respiratory 27 H 32 H 29 H Rate Respiratory Rate [Anterior Bilateral Throughout] Blood Pressure 169/97 165/100 164/95 O2 Sat by Pulse 100 98 96 Oximetry 10/14/20 10/14/20 10/14/20 13:00 13:15 13:30 Temperature Pulse Rate 93 H 90 97 H Pulse Rate [ Anterior Bilateral Throughout] Pulse Rate [ From Monitor] Respiratory 28 H 25 H 34 H Rate Respiratory Rate [Anterior Bilateral Throughout] Blood Pressure 161/95 160/94 164/95 O2 Sat by Pulse 99 100 96 Oximetry 10/14/20 10/14/20 10/14/20 13:45 14:00 14:07 Temperature Pulse Rate 96 H 93 H 97 H Pulse Rate [ Anterior Bilateral Throughout] Pulse Rate [ From Monitor] Respiratory 22 24 Rate Respiratory Rate [Anterior Bilateral Throughout] Blood Pressure 175/81 176/87 176/87 O2 Sat by Pulse 96 98 Oximetry 10/14/20 10/14/20 14:10 14:15 Temperature Pulse Rate 91 H 99 H Pulse Rate [ Anterior Bilateral Throughout] Pulse Rate [ From Monitor] Respiratory 27 H Rate Respiratory Rate [Anterior Bilateral Throughout] Blood Pressure 176/87 174/85 O2 Sat by Pulse 98 Oximetry Constitutional: comatose, other (critically ill on ventilator) Eyes: non-icteric ENT: oropharynx moist, other (orally intubated and not sedated) Neck: other (large in cirumference) Effort: normal Ascultation: Bilateral: clear, diminished breath sounds, other (coarse BS bilaterally w/ mild faint wheezes) Percussion: Bilateral: not dull Cardiovascular: regular rate and rhythm, other (no mrg) Gastrointestinal: normoactive bowel sounds, soft, other (post surgical changes with drain on the left side) Extremities: no cyanosis, pink and warm, anasarca Neurologic: other (unresponsive, not following commands, not tracking) Psychiatric: other (unable to assess) CBC and BMP: 10/14/20 04:00 10/14/20 04:00 ABG, PT/INR, D-dimer: ABG ABG pH 7.473 (7.320-7.450) H 10/13/20 07:18 POC ABG pCO2 20.7 mmHg (32.0-48.0) L 10/13/20 07:18 ABG pCO2 25.0 mm Hg 10/10/20 04:42 POC ABG pO2 137.9 mmHg (83-108) H 10/13/20 07:18 ABG pO2 95.2 mm Hg (80.0-90.0) H 10/10/20 04:42 POC ABG HCO3 14.8 10/13/20 07:18 ABG O2 Saturation 97.9 % (95.0-99.0) 10/10/20 04:42 PT/INR, D-dimer PT 13.0 Sec. (12.2-14.9) 10/05/20 05:00 INR 1.00 (0.87-1.13) 10/05/20 05:00 D-Dimer > 19398 ng/mlDDU (0-234) H 10/04/20 10:00 Abnormal lab findings: Abnormal Labs 10/02/20 10/02/20 10/02/20 12:03 12:18 12:18 WBC 14.9 H RBC Hgb 9.1 L Hct MCV MCH 22 L MCHC 28 L RDW 17.6 H Plt Count 102 L Lymph % (Auto) [place] % (Auto) Lymph # (Auto) [place] # (Auto) Seg Neutrophils % Seg Neuts % (Manual) 36.0 L Lymphocytes % (Manual) 49.0 H Monocytes % (Manual) Nucleated RBC % 6.0 H Seg Neutrophils # Seg Neutrophils # Man Lymphocytes # (Manual) 7.3 H Monocytes # (Manual) PT INR APTT Fibrinogen D-Dimer ABG pH POC ABG pCO2 POC ABG pO2 ABG pO2 ABG HCO3 ABG Base Excess ABG Hemoglobin ABG Oxyhemoglobin ABG Sodium ABG Potassium ABG Chloride ABG Glucose VBG pH Oxyhemoglobin Carboxyhemoglobin Sodium 134 L Potassium Chloride Carbon Dioxide 12 L BUN 6 L Creatinine Glucose 390 H POC Glucose 451 H Lactic Acid Calcium Ionized Calcium Magnesium AST 135 H ALT 85 H Alkaline Phosphatase 172 H Lactate Dehydrogenase 641 H NT-Pro-B Natriuret Pep Total Protein 5.4 L Albumin 2.3 L Arterial Blood Glucose Arterial Blood Ionized Calcium Urine WBC (Auto) Phenytoin Crossmatch 10/02/20 10/02/20 10/02/20 12:50 13:05 13:05 WBC 38.6 H RBC Hgb 8.9 L Hct 29.0 L MCV 73 L MCH 22 L MCHC RDW 17.2 H Plt Count Lymph % (Auto) [place] % (Auto) Lymph # (Auto) [place] # (Auto) Seg Neutrophils % Seg Neuts % (Manual) Lymphocytes % (Manual) Monocytes % (Manual) Nucleated RBC % 2.0 H Seg Neutrophils # Seg Neutrophils # Man 20.1 H Lymphocytes # (Manual) 10.4 H Monocytes # (Manual) 2.3 H PT INR APTT Fibrinogen D-Dimer ABG pH POC ABG pCO2 POC ABG pO2 ABG pO2 ABG HCO3 ABG Base Excess ABG Hemoglobin ABG Oxyhemoglobin ABG Sodium ABG Potassium ABG Chloride ABG Glucose VBG pH Oxyhemoglobin Carboxyhemoglobin Sodium Potassium Chloride Carbon Dioxide BUN Creatinine Glucose POC Glucose Lactic Acid Calcium Ionized Calcium Magnesium AST 184 H ALT 113 H Alkaline Phosphatase Lactate Dehydrogenase 769 H NT-Pro-B Natriuret Pep Total Protein Albumin Arterial Blood Glucose Arterial Blood Ionized Calcium Urine WBC (Auto) Phenytoin Crossmatch See Detail 10/02/20 10/02/20 10/02/20 16:25 16:35 16:35 WBC RBC Hgb Hct MCV MCH MCHC RDW Plt Count Lymph % (Auto) [place] % (Auto) Lymph # (Auto) [place] # (Auto) Seg Neutrophils % Seg Neuts % (Manual) Lymphocytes % (Manual) Monocytes % (Manual) Nucleated RBC % Seg Neutrophils # Seg Neutrophils # Man Lymphocytes # (Manual) Monocytes # (Manual) PT INR APTT Fibrinogen D-Dimer ABG pH 7.031 L* POC ABG pCO2 POC ABG pO2 ABG pO2 116.8 H ABG HCO3 12.7 L ABG Base Excess -16.9 L ABG Hemoglobin 7.8 L ABG Oxyhemoglobin ABG Sodium ABG Potassium ABG Chloride ABG Glucose VBG pH Oxyhemoglobin 94.9 L Carboxyhemoglobin Sodium Potassium Chloride Carbon Dioxide BUN Creatinine Glucose 403 H POC Glucose Lactic Acid 11.40 H* Calcium 6.3 L D Ionized Calcium Magnesium AST 70 H ALT Alkaline Phosphatase Lactate Dehydrogenase NT-Pro-B Natriuret Pep Total Protein 1.9 L D Albumin 1.2 L Arterial Blood Glucose Arterial Blood Ionized Calcium Urine WBC (Auto) Phenytoin Crossmatch 10/02/20 10/02/20 10/02/20 18:18 18:18 22:30 WBC 11.5 H RBC 2.06 L Hgb 5.5 L* D Hct 17.3 L* D MCV MCH 27 L MCHC RDW 19.5 H Plt Count 60 L Lymph % (Auto) [place] % (Auto) Lymph # (Auto) [place] # (Auto) Seg Neutrophils % Seg Neuts % (Manual) Lymphocytes % (Manual) 8.0 L Monocytes % (Manual) 8.0 H Nucleated RBC % 8.0 H Seg Neutrophils # Seg Neutrophils # Man Lymphocytes # (Manual) 0.9 L Monocytes # (Manual) 0.9 H PT 37.1 H INR 3.71 H APTT 135.8 H* Fibrinogen D-Dimer ABG pH 7.067 L* POC ABG pCO2 POC ABG pO2 ABG pO2 183.0 H ABG HCO3 14.1 L ABG Base Excess -15.1 L ABG Hemoglobin 7.7 L ABG Oxyhemoglobin ABG Sodium ABG Potassium ABG Chloride ABG Glucose VBG pH Oxyhemoglobin Carboxyhemoglobin Sodium Potassium Chloride Carbon Dioxide BUN Creatinine Glucose POC Glucose Lactic Acid Calcium Ionized Calcium Magnesium AST ALT Alkaline Phosphatase Lactate Dehydrogenase NT-Pro-B Natriuret Pep Total Protein Albumin Arterial Blood Glucose Arterial Blood Ionized Calcium Urine WBC (Auto) Phenytoin Crossmatch 10/02/20 10/02/20 10/03/20 Unknown Unknown 00:01 WBC RBC Hgb Hct MCV MCH MCHC RDW Plt Count Lymph % (Auto) [place] % (Auto) Lymph # (Auto) [place] # (Auto) Seg Neutrophils % Seg Neuts % (Manual) Lymphocytes % (Manual) Monocytes % (Manual) Nucleated RBC % Seg Neutrophils # Seg Neutrophils # Man Lymphocytes # (Manual) Monocytes # (Manual) PT 61.1 H INR 6.92 H* APTT 158.7 H* Fibrinogen < 60 L* D-Dimer > 08100 H ABG pH POC ABG pCO2 POC ABG pO2 ABG pO2 ABG HCO3 ABG Base Excess ABG Hemoglobin ABG Oxyhemoglobin ABG Sodium ABG Potassium ABG Chloride ABG Glucose VBG pH 6.949 L* Oxyhemoglobin Carboxyhemoglobin Sodium Potassium Chloride Carbon Dioxide BUN Creatinine Glucose POC Glucose 196 H Lactic Acid Calcium Ionized Calcium Magnesium AST ALT Alkaline Phosphatase Lactate Dehydrogenase NT-Pro-B Natriuret Pep Total Protein Albumin Arterial Blood Glucose Arterial Blood Ionized Calcium Urine WBC (Auto) Phenytoin Crossmatch 10/03/20 10/03/20 10/03/20 00:40 00:40 00:40 WBC RBC Hgb Hct MCV MCH MCHC RDW Plt Count Lymph % (Auto) [place] % (Auto) Lymph # (Auto) [place] # (Auto) Seg Neutrophils % Seg Neuts % (Manual) Lymphocytes % (Manual) Monocytes % (Manual) Nucleated RBC % Seg Neutrophils # Seg Neutrophils # Man Lymphocytes # (Manual) Monocytes # (Manual) PT 15.1 H INR 1.21 H APTT Fibrinogen D-Dimer ABG pH POC ABG pCO2 POC ABG pO2 ABG pO2 ABG HCO3 ABG Base Excess ABG Hemoglobin ABG Oxyhemoglobin ABG Sodium ABG Potassium ABG Chloride ABG Glucose VBG pH Oxyhemoglobin Carboxyhemoglobin Sodium 136 L Potassium Chloride Carbon Dioxide BUN Creatinine 1.6 H D Glucose 106 H POC Glucose Lactic Acid 5.60 H* Calcium 6.5 L Ionized Calcium Magnesium AST 232 H ALT 104 H Alkaline Phosphatase Lactate Dehydrogenase NT-Pro-B Natriuret Pep Total Protein 3.9 L D Albumin 2.4 L Arterial Blood Glucose Arterial Blood Ionized Calcium Urine WBC (Auto) Phenytoin Crossmatch 10/03/20 10/03/20 10/03/20 02:08 02:08 02:08 WBC 17.6 H RBC 3.27 L Hgb 9.9 L D Hct 29.9 L D MCV MCH MCHC RDW 16.5 H Plt Count 75 L Lymph % (Auto) [place] % (Auto) Lymph # (Auto) [place] # (Auto) Seg Neutrophils % Seg Neuts % (Manual) 76.0 H Lymphocytes % (Manual) Monocytes % (Manual) Nucleated RBC % 8.0 H Seg Neutrophils # Seg Neutrophils # Man 13.4 H Lymphocytes # (Manual) Monocytes # (Manual) PT INR APTT Fibrinogen D-Dimer ABG pH POC ABG pCO2 POC ABG pO2 ABG pO2 ABG HCO3 ABG Base Excess ABG Hemoglobin ABG Oxyhemoglobin ABG Sodium ABG Potassium ABG Chloride ABG Glucose VBG pH Oxyhemoglobin Carboxyhemoglobin Sodium Potassium Chloride Carbon Dioxide 19 L BUN Creatinine 1.4 H Glucose 306 H POC Glucose Lactic Acid 10.50 H* Calcium 6.4 L Ionized Calcium Magnesium AST ALT Alkaline Phosphatase Lactate Dehydrogenase NT-Pro-B Natriuret Pep Total Protein Albumin Arterial Blood Glucose Arterial Blood Ionized Calcium Urine WBC (Auto) Phenytoin Crossmatch 10/03/20 10/03/20 10/03/20 02:42 03:59 05:31 WBC RBC Hgb Hct MCV MCH MCHC RDW Plt Count Lymph % (Auto) [place] % (Auto) Lymph # (Auto) [place] # (Auto) Seg Neutrophils % Seg Neuts % (Manual) Lymphocytes % (Manual) Monocytes % (Manual) Nucleated RBC % Seg Neutrophils # Seg Neutrophils # Man Lymphocytes # (Manual) Monocytes # (Manual) PT INR APTT Fibrinogen D-Dimer ABG pH 7.144 L POC ABG pCO2 54.4 H POC ABG pO2 ABG pO2 ABG HCO3 ABG Base Excess ABG Hemoglobin 10.0 L ABG Oxyhemoglobin ABG Sodium ABG Potassium ABG Chloride 108.0 H ABG Glucose 306 H VBG pH Oxyhemoglobin Carboxyhemoglobin Sodium Potassium Chloride Carbon Dioxide BUN Creatinine Glucose POC Glucose 209 H Lactic Acid 9.20 H* Calcium Ionized Calcium Magnesium AST ALT Alkaline Phosphatase Lactate Dehydrogenase NT-Pro-B Natriuret Pep Total Protein Albumin Arterial Blood Glucose 306 H Arterial Blood Ionized Calcium 3.7 L Urine WBC (Auto) Phenytoin Crossmatch 10/03/20 10/03/20 10/03/20 09:00 09:00 09:00 WBC 27.4 H RBC 2.84 L Hgb 8.5 L Hct 25.1 L MCV MCH MCHC RDW 16.1 H Plt Count 72 L Lymph % (Auto) [place] % (Auto) Lymph # (Auto) [place] # (Auto) Seg Neutrophils % Seg Neuts % (Manual) Lymphocytes % (Manual) 11.0 L Monocytes % (Manual) Nucleated RBC % 3.0 H Seg Neutrophils # Seg Neutrophils # Man 18.4 H Lymphocytes # (Manual) Monocytes # (Manual) 1.9 H PT INR APTT Fibrinogen D-Dimer ABG pH POC ABG pCO2 POC ABG pO2 ABG pO2 ABG HCO3 ABG Base Excess ABG Hemoglobin ABG Oxyhemoglobin ABG Sodium ABG Potassium ABG Chloride ABG Glucose VBG pH Oxyhemoglobin Carboxyhemoglobin Sodium Potassium Chloride Carbon Dioxide BUN Creatinine 1.7 H Glucose 216 H POC Glucose Lactic Acid 9.20 H* Calcium 6.3 L Ionized Calcium Magnesium AST 331 H ALT 171 H Alkaline Phosphatase Lactate Dehydrogenase NT-Pro-B Natriuret Pep Total Protein 3.7 L Albumin 1.9 L Arterial Blood Glucose Arterial Blood Ionized Calcium Urine WBC (Auto) Phenytoin Crossmatch 10/03/20 10/03/20 10/03/20 11:20 11:46 11:50 WBC 28.7 H RBC 2.67 L Hgb 8.0 L Hct 23.7 L MCV MCH MCHC RDW 16.6 H Plt Count 76 L Lymph % (Auto) [place] % (Auto) Lymph # (Auto) [place] # (Auto) Seg Neutrophils % Seg Neuts % (Manual) Lymphocytes % (Manual) Monocytes % (Manual) Nucleated RBC % Seg Neutrophils # Seg Neutrophils # Man Lymphocytes # (Manual) Monocytes # (Manual) PT INR APTT Fibrinogen D-Dimer ABG pH POC ABG pCO2 POC ABG pO2 ABG pO2 ABG HCO3 ABG Base Excess ABG Hemoglobin ABG Oxyhemoglobin ABG Sodium ABG Potassium ABG Chloride ABG Glucose VBG pH Oxyhemoglobin Carboxyhemoglobin Sodium Potassium Chloride Carbon Dioxide BUN Creatinine Glucose POC Glucose 125 H Lactic Acid 8.00 H* Calcium Ionized Calcium Magnesium AST ALT Alkaline Phosphatase Lactate Dehydrogenase NT-Pro-B Natriuret Pep Total Protein Albumin Arterial Blood Glucose Arterial Blood Ionized Calcium Urine WBC (Auto) Phenytoin Crossmatch 10/03/20 10/04/20 10/04/20 11:50 00:40 00:40 WBC RBC Hgb 6.8 L Hct 19.4 L* MCV MCH MCHC RDW Plt Count 49 L Lymph % (Auto) [place] % (Auto) Lymph # (Auto) [place] # (Auto) Seg Neutrophils % Seg Neuts % (Manual) Lymphocytes % (Manual) Monocytes % (Manual) Nucleated RBC % Seg Neutrophils # Seg Neutrophils # Man Lymphocytes # (Manual) Monocytes # (Manual) PT INR APTT Fibrinogen D-Dimer ABG pH 7.244 L POC ABG pCO2 POC ABG pO2 ABG pO2 ABG HCO3 ABG Base Excess -4.5 L ABG Hemoglobin 7.3 L ABG Oxyhemoglobin ABG Sodium ABG Potassium ABG Chloride ABG Glucose VBG pH Oxyhemoglobin Carboxyhemoglobin Sodium Potassium Chloride Carbon Dioxide BUN Creatinine Glucose POC Glucose Lactic Acid Calcium Ionized Calcium Magnesium AST ALT Alkaline Phosphatase Lactate Dehydrogenase NT-Pro-B Natriuret Pep Total Protein Albumin Arterial Blood Glucose Arterial Blood Ionized Calcium Urine WBC (Auto) Phenytoin Crossmatch 10/04/20 10/04/20 10/04/20 03:53 10:00 10:00 WBC 14.6 H RBC 2.57 L Hgb 7.6 L Hct 22.5 L MCV MCH MCHC RDW 15.8 H Plt Count 38 L Lymph % (Auto) 7.7 L [place] % (Auto) Lymph # (Auto) 1.1 L [place] # (Auto) 0.9 H Seg Neutrophils % 85.6 H Seg Neuts % (Manual) Lymphocytes % (Manual) Monocytes % (Manual) Nucleated RBC % Seg Neutrophils # 12.5 H Seg Neutrophils # Man Lymphocytes # (Manual) Monocytes # (Manual) PT INR APTT Fibrinogen D-Dimer ABG pH POC ABG pCO2 POC ABG pO2 110.6 H ABG pO2 ABG HCO3 ABG Base Excess ABG Hemoglobin 6.7 L ABG Oxyhemoglobin ABG Sodium 132.0 L ABG Potassium ABG Chloride ABG Glucose 111 H VBG pH Oxyhemoglobin Carboxyhemoglobin Sodium 134 L D Potassium Chloride 97.6 L Carbon Dioxide BUN Creatinine 1.7 H Glucose POC Glucose Lactic Acid Calcium 6.3 L Ionized Calcium Magnesium AST 203 H ALT 81 H Alkaline Phosphatase Lactate Dehydrogenase NT-Pro-B Natriuret Pep Total Protein 3.9 L Albumin 2.3 L Arterial Blood Glucose 111 H Arterial Blood Ionized Calcium 3.5 L Urine WBC (Auto) Phenytoin Crossmatch 10/04/20 10/04/20 10/04/20 10:00 10:00 10:14 WBC RBC Hgb Hct MCV MCH MCHC RDW Plt Count Lymph % (Auto) [place] % (Auto) Lymph # (Auto) [place] # (Auto) Seg Neutrophils % Seg Neuts % (Manual) Lymphocytes % (Manual) Monocytes % (Manual) Nucleated RBC % Seg Neutrophils # Seg Neutrophils # Man Lymphocytes # (Manual) Monocytes # (Manual) PT INR APTT Fibrinogen D-Dimer > 20669 H ABG pH POC ABG pCO2 POC ABG pO2 ABG pO2 ABG HCO3 ABG Base Excess ABG Hemoglobin ABG Oxyhemoglobin ABG Sodium ABG Potassium ABG Chloride ABG Glucose VBG pH Oxyhemoglobin Carboxyhemoglobin Sodium Potassium Chloride Carbon Dioxide BUN Creatinine Glucose POC Glucose Lactic Acid 3.90 H* Calcium Ionized Calcium Magnesium AST ALT Alkaline Phosphatase Lactate Dehydrogenase NT-Pro-B Natriuret Pep 2788 H Total Protein Albumin Arterial Blood Glucose Arterial Blood Ionized Calcium Urine WBC (Auto) Phenytoin Crossmatch 10/04/20 10/04/20 10/04/20 14:00 14:00 18:00 WBC 15.7 H RBC 3.17 L Hgb 9.3 L 9.6 L Hct 27.2 L 28.0 L MCV MCH MCHC RDW 16.9 H Plt Count 41 L Lymph % (Auto) 8.6 L [place] % (Auto) Lymph # (Auto) [place] # (Auto) 0.9 H Seg Neutrophils % 85.4 H Seg Neuts % (Manual) Lymphocytes % (Manual) Monocytes % (Manual) Nucleated RBC % Seg Neutrophils # 13.4 H Seg Neutrophils # Man Lymphocytes # (Manual) Monocytes # (Manual) PT INR APTT Fibrinogen D-Dimer ABG pH POC ABG pCO2 POC ABG pO2 ABG pO2 ABG HCO3 ABG Base Excess ABG Hemoglobin ABG Oxyhemoglobin ABG Sodium ABG Potassium ABG Chloride ABG Glucose VBG pH Oxyhemoglobin Carboxyhemoglobin Sodium 133 L Potassium Chloride 96.4 L Carbon Dioxide BUN 18 H Creatinine 1.7 H Glucose POC Glucose Lactic Acid Calcium 6.3 L Ionized Calcium Magnesium AST ALT Alkaline Phosphatase Lactate Dehydrogenase NT-Pro-B Natriuret Pep Total Protein Albumin Arterial Blood Glucose Arterial Blood Ionized Calcium Urine WBC (Auto) Phenytoin Crossmatch 10/04/20 10/04/20 10/05/20 18:00 22:00 05:00 WBC 17.6 H RBC 3.34 L Hgb 9.9 L Hct 29.4 L MCV MCH MCHC RDW 17.1 H Plt Count 56 L Lymph % (Auto) 8.5 L [place] % (Auto) Lymph # (Auto) [place] # (Auto) 1.0 H Seg Neutrophils % 85.1 H Seg Neuts % (Manual) Lymphocytes % (Manual) Monocytes % (Manual) Nucleated RBC % Seg Neutrophils # 15.0 H Seg Neutrophils # Man Lymphocytes # (Manual) Monocytes # (Manual) PT INR APTT Fibrinogen D-Dimer ABG pH POC ABG pCO2 POC ABG pO2 ABG pO2 ABG HCO3 ABG Base Excess ABG Hemoglobin ABG Oxyhemoglobin ABG Sodium ABG Potassium ABG Chloride ABG Glucose VBG pH Oxyhemoglobin Carboxyhemoglobin Sodium 136 L Potassium Chloride Carbon Dioxide BUN 18 H Creatinine 1.7 H Glucose POC Glucose Lactic Acid 2.30 H* Calcium 6.6 L Ionized Calcium Magnesium AST ALT Alkaline Phosphatase Lactate Dehydrogenase NT-Pro-B Natriuret Pep Total Protein Albumin Arterial Blood Glucose Arterial Blood Ionized Calcium Urine WBC (Auto) Phenytoin Crossmatch 10/05/20 10/05/20 10/05/20 05:00 05:00 05:03 WBC RBC Hgb Hct MCV MCH MCHC RDW Plt Count Lymph % (Auto) [place] % (Auto) Lymph # (Auto) [place] # (Auto) Seg Neutrophils % Seg Neuts % (Manual) Lymphocytes % (Manual) Monocytes % (Manual) Nucleated RBC % Seg Neutrophils # Seg Neutrophils # Man Lymphocytes # (Manual) Monocytes # (Manual) PT INR APTT Fibrinogen D-Dimer ABG pH 7.458 H POC ABG pCO2 POC ABG pO2 ABG pO2 74.3 L ABG HCO3 27.5 H ABG Base Excess 3.4 H ABG Hemoglobin 10.0 L ABG Oxyhemoglobin ABG Sodium ABG Potassium ABG Chloride ABG Glucose VBG pH Oxyhemoglobin 94.9 L Carboxyhemoglobin Sodium Potassium Chloride Carbon Dioxide BUN 19 H Creatinine 1.8 H Glucose POC Glucose Lactic Acid Calcium 6.8 L Ionized Calcium 3.9 L Magnesium AST 225 H ALT 85 H Alkaline Phosphatase Lactate Dehydrogenase NT-Pro-B Natriuret Pep Total Protein 4.5 L Albumin 2.7 L Arterial Blood Glucose Arterial Blood Ionized Calcium Urine WBC (Auto) Phenytoin Crossmatch 10/05/20 10/05/20 10/05/20 10:10 15:00 19:40 WBC RBC Hgb Hct MCV MCH MCHC RDW Plt Count Lymph % (Auto) [place] % (Auto) Lymph # (Auto) [place] # (Auto) Seg Neutrophils % Seg Neuts % (Manual) Lymphocytes % (Manual) Monocytes % (Manual) Nucleated RBC % Seg Neutrophils # Seg Neutrophils # Man Lymphocytes # (Manual) Monocytes # (Manual) PT INR APTT Fibrinogen D-Dimer ABG pH POC ABG pCO2 POC ABG pO2 ABG pO2 ABG HCO3 ABG Base Excess ABG Hemoglobin ABG Oxyhemoglobin ABG Sodium ABG Potassium ABG Chloride ABG Glucose VBG pH Oxyhemoglobin Carboxyhemoglobin Sodium Potassium 3.5 L Chloride Carbon Dioxide 31 H 32 H BUN 19 H 19 H Creatinine 1.8 H 1.8 H Glucose POC Glucose Lactic Acid Calcium 7.0 L 7.2 L Ionized Calcium Magnesium 2.90 H AST ALT Alkaline Phosphatase Lactate Dehydrogenase NT-Pro-B Natriuret Pep Total Protein Albumin Arterial Blood Glucose Arterial Blood Ionized Calcium Urine WBC (Auto) Phenytoin Crossmatch 10/06/20 10/06/20 10/06/20 01:05 03:12 04:00 WBC 17.1 H RBC 3.47 L Hgb Hct MCV MCH MCHC RDW 17.4 H Plt Count 82 L Lymph % (Auto) 8.3 L [place] % (Auto) Lymph # (Auto) [place] # (Auto) 1.1 H Seg Neutrophils % 83.8 H Seg Neuts % (Manual) Lymphocytes % (Manual) Monocytes % (Manual) Nucleated RBC % Seg Neutrophils # 14.3 H Seg Neutrophils # Man Lymphocytes # (Manual) Monocytes # (Manual) PT INR APTT Fibrinogen D-Dimer ABG pH 7.474 H POC ABG pCO2 POC ABG pO2 129.5 H ABG pO2 ABG HCO3 ABG Base Excess ABG Hemoglobin 11.4 L ABG Oxyhemoglobin ABG Sodium 131.8 L ABG Potassium ABG Chloride ABG Glucose 103 H VBG pH Oxyhemoglobin Carboxyhemoglobin 0.3 L Sodium Potassium Chloride Carbon Dioxide BUN Creatinine Glucose POC Glucose Lactic Acid Calcium Ionized Calcium Magnesium 3.70 H AST ALT Alkaline Phosphatase Lactate Dehydrogenase NT-Pro-B Natriuret Pep Total Protein Albumin Arterial Blood Glucose 103 H Arterial Blood Ionized Calcium 4.2 L Urine WBC (Auto) Phenytoin Crossmatch 10/06/20 10/06/20 10/06/20 04:00 05:31 08:12 WBC RBC Hgb Hct MCV MCH MCHC RDW Plt Count Lymph % (Auto) [place] % (Auto) Lymph # (Auto) [place] # (Auto) Seg Neutrophils % Seg Neuts % (Manual) Lymphocytes % (Manual) Monocytes % (Manual) Nucleated RBC % Seg Neutrophils # Seg Neutrophils # Man Lymphocytes # (Manual) Monocytes # (Manual) PT INR APTT Fibrinogen D-Dimer ABG pH POC ABG pCO2 POC ABG pO2 ABG pO2 ABG HCO3 ABG Base Excess ABG Hemoglobin ABG Oxyhemoglobin ABG Sodium ABG Potassium ABG Chloride ABG Glucose VBG pH Oxyhemoglobin Carboxyhemoglobin Sodium Potassium 3.5 L Chloride Carbon Dioxide BUN 19 H Creatinine 1.8 H Glucose 102 H POC Glucose 116 H Lactic Acid Calcium 7.2 L Ionized Calcium Magnesium 5.40 H AST 307 H ALT 137 H Alkaline Phosphatase Lactate Dehydrogenase NT-Pro-B Natriuret Pep Total Protein 4.5 L Albumin 2.6 L Arterial Blood Glucose Arterial Blood Ionized Calcium Urine WBC (Auto) Phenytoin Crossmatch 10/06/20 10/06/20 10/06/20 11:00 11:50 20:13 WBC RBC Hgb Hct MCV MCH MCHC RDW Plt Count Lymph % (Auto) [place] % (Auto) Lymph # (Auto) [place] # (Auto) Seg Neutrophils % Seg Neuts % (Manual) Lymphocytes % (Manual) Monocytes % (Manual) Nucleated RBC % Seg Neutrophils # Seg Neutrophils # Man Lymphocytes # (Manual) Monocytes # (Manual) PT INR APTT Fibrinogen D-Dimer ABG pH POC ABG pCO2 POC ABG pO2 ABG pO2 ABG HCO3 ABG Base Excess ABG Hemoglobin ABG Oxyhemoglobin ABG Sodium ABG Potassium ABG Chloride ABG Glucose VBG pH Oxyhemoglobin Carboxyhemoglobin Sodium Potassium Chloride Carbon Dioxide BUN Creatinine Glucose POC Glucose 106 H Lactic Acid Calcium Ionized Calcium Magnesium 6.50 H 6.20 H AST ALT Alkaline Phosphatase Lactate Dehydrogenase NT-Pro-B Natriuret Pep Total Protein Albumin Arterial Blood Glucose Arterial Blood Ionized Calcium Urine WBC (Auto) Phenytoin Crossmatch 10/06/20 10/06/20 10/06/20 20:17 22:29 23:57 WBC RBC Hgb Hct MCV MCH MCHC RDW Plt Count Lymph % (Auto) [place] % (Auto) Lymph # (Auto) [place] # (Auto) Seg Neutrophils % Seg Neuts % (Manual) Lymphocytes % (Manual) Monocytes % (Manual) Nucleated RBC % Seg Neutrophils # Seg Neutrophils # Man Lymphocytes # (Manual) Monocytes # (Manual) PT INR APTT Fibrinogen D-Dimer ABG pH POC ABG pCO2 POC ABG pO2 ABG pO2 ABG HCO3 ABG Base Excess ABG Hemoglobin ABG Oxyhemoglobin ABG Sodium ABG Potassium ABG Chloride ABG Glucose VBG pH Oxyhemoglobin Carboxyhemoglobin Sodium Potassium Chloride Carbon Dioxide BUN Creatinine Glucose POC Glucose 112 H 126 H 133 H Lactic Acid Calcium Ionized Calcium Magnesium AST ALT Alkaline Phosphatase Lactate Dehydrogenase NT-Pro-B Natriuret Pep Total Protein Albumin Arterial Blood Glucose Arterial Blood Ionized Calcium Urine WBC (Auto) Phenytoin Crossmatch 10/07/20 10/07/20 10/07/20 00:35 02:22 03:16 WBC RBC Hgb Hct MCV MCH MCHC RDW Plt Count Lymph % (Auto) [place] % (Auto) Lymph # (Auto) [place] # (Auto) Seg Neutrophils % Seg Neuts % (Manual) Lymphocytes % (Manual) Monocytes % (Manual) Nucleated RBC % Seg Neutrophils # Seg Neutrophils # Man Lymphocytes # (Manual) Monocytes # (Manual) PT INR APTT Fibrinogen D-Dimer ABG pH POC ABG pCO2 POC ABG pO2 ABG pO2 ABG HCO3 ABG Base Excess ABG Hemoglobin 11.6 L ABG Oxyhemoglobin ABG Sodium ABG Potassium ABG Chloride ABG Glucose 156 H VBG pH Oxyhemoglobin Carboxyhemoglobin 0.3 L Sodium Potassium Chloride Carbon Dioxide BUN Creatinine Glucose POC Glucose 124 H Lactic Acid Calcium Ionized Calcium Magnesium 5.90 H AST ALT Alkaline Phosphatase Lactate Dehydrogenase NT-Pro-B Natriuret Pep Total Protein Albumin Arterial Blood Glucose 156 H Arterial Blood Ionized Calcium 4.2 L Urine WBC (Auto) Phenytoin Crossmatch 10/07/20 10/07/20 10/07/20 04:06 05:45 07:05 WBC 19.2 H RBC 3.57 L Hgb Hct MCV MCH MCHC 35 H RDW 17.1 H Plt Count 129 L Lymph % (Auto) [place] % (Auto) Lymph # (Auto) [place] # (Auto) Seg Neutrophils % Seg Neuts % (Manual) 94.0 H Lymphocytes % (Manual) 6.0 L Monocytes % (Manual) Nucleated RBC % Seg Neutrophils # Seg Neutrophils # Man 18.0 H Lymphocytes # (Manual) Monocytes # (Manual) PT INR APTT Fibrinogen D-Dimer ABG pH POC ABG pCO2 POC ABG pO2 ABG pO2 ABG HCO3 ABG Base Excess ABG Hemoglobin ABG Oxyhemoglobin ABG Sodium ABG Potassium ABG Chloride ABG Glucose VBG pH Oxyhemoglobin Carboxyhemoglobin Sodium Potassium Chloride Carbon Dioxide BUN Creatinine Glucose POC Glucose 135 H 149 H Lactic Acid Calcium Ionized Calcium Magnesium AST ALT Alkaline Phosphatase Lactate Dehydrogenase NT-Pro-B Natriuret Pep Total Protein Albumin Arterial Blood Glucose Arterial Blood Ionized Calcium Urine WBC (Auto) Phenytoin Crossmatch 10/07/20 10/07/20 10/07/20 07:05 07:05 12:21 WBC RBC Hgb Hct MCV MCH MCHC RDW Plt Count Lymph % (Auto) [place] % (Auto) Lymph # (Auto) [place] # (Auto) Seg Neutrophils % Seg Neuts % (Manual) Lymphocytes % (Manual) Monocytes % (Manual) Nucleated RBC % Seg Neutrophils # Seg Neutrophils # Man Lymphocytes # (Manual) Monocytes # (Manual) PT INR APTT Fibrinogen D-Dimer ABG pH POC ABG pCO2 POC ABG pO2 ABG pO2 ABG HCO3 ABG Base Excess ABG Hemoglobin ABG Oxyhemoglobin ABG Sodium ABG Potassium ABG Chloride ABG Glucose VBG pH Oxyhemoglobin Carboxyhemoglobin Sodium Potassium Chloride Carbon Dioxide BUN 21 H Creatinine 1.7 H Glucose 171 H POC Glucose 124 H Lactic Acid Calcium 7.4 L Ionized Calcium Magnesium 6.10 H AST 245 H ALT 147 H Alkaline Phosphatase Lactate Dehydrogenase NT-Pro-B Natriuret Pep Total Protein 5.3 L Albumin 2.8 L Arterial Blood Glucose Arterial Blood Ionized Calcium Urine WBC (Auto) Phenytoin Crossmatch 10/07/20 10/07/20 10/07/20 19:52 21:00 21:50 WBC RBC Hgb Hct MCV MCH MCHC RDW Plt Count Lymph % (Auto) [place] % (Auto) Lymph # (Auto) [place] # (Auto) Seg Neutrophils % Seg Neuts % (Manual) Lymphocytes % (Manual) Monocytes % (Manual) Nucleated RBC % Seg Neutrophils # Seg Neutrophils # Man Lymphocytes # (Manual) Monocytes # (Manual) PT INR APTT Fibrinogen D-Dimer ABG pH POC ABG pCO2 POC ABG pO2 ABG pO2 ABG HCO3 ABG Base Excess ABG Hemoglobin ABG Oxyhemoglobin ABG Sodium ABG Potassium ABG Chloride ABG Glucose VBG pH Oxyhemoglobin Carboxyhemoglobin Sodium Potassium Chloride Carbon Dioxide BUN Creatinine Glucose POC Glucose 193 H 138 H Lactic Acid Calcium Ionized Calcium 4.4 L Magnesium AST ALT Alkaline Phosphatase Lactate Dehydrogenase NT-Pro-B Natriuret Pep Total Protein Albumin Arterial Blood Glucose Arterial Blood Ionized Calcium Urine WBC (Auto) Phenytoin Crossmatch 12/10/08/20 10/08/20 23:41 04:20 05:30 WBC RBC Hgb Hct MCV MCH MCHC RDW Plt Count Lymph % (Auto) [place] % (Auto) Lymph # (Auto) [place] # (Auto) Seg Neutrophils % Seg Neuts % (Manual) Lymphocytes % (Manual) Monocytes % (Manual) Nucleated RBC % Seg Neutrophils # Seg Neutrophils # Man Lymphocytes # (Manual) Monocytes # (Manual) PT INR APTT Fibrinogen D-Dimer ABG pH 7.467 H POC ABG pCO2 POC ABG pO2 189.8 H ABG pO2 ABG HCO3 ABG Base Excess ABG Hemoglobin 10.8 L ABG Oxyhemoglobin ABG Sodium ABG Potassium ABG Chloride ABG Glucose 133 H VBG pH Oxyhemoglobin Carboxyhemoglobin Sodium Potassium Chloride Carbon Dioxide BUN Creatinine Glucose POC Glucose 118 H 114 H Lactic Acid Calcium Ionized Calcium Magnesium AST ALT Alkaline Phosphatase Lactate Dehydrogenase NT-Pro-B Natriuret Pep Total Protein Albumin Arterial Blood Glucose 133 H Arterial Blood Ionized Calcium 4.2 L Urine WBC (Auto) Phenytoin Crossmatch 10/08/20 10/08/20 10/08/20 05:43 06:42 06:42 WBC 23.6 H RBC 3.54 L Hgb Hct MCV MCH MCHC RDW 17.8 H Plt Count Lymph % (Auto) [place] % (Auto) Lymph # (Auto) [place] # (Auto) Seg Neutrophils % Seg Neuts % (Manual) 93.0 H Lymphocytes % (Manual) 3.0 L Monocytes % (Manual) Nucleated RBC % 1.0 H Seg Neutrophils # Seg Neutrophils # Man 21.9 H Lymphocytes # (Manual) 0.7 L Monocytes # (Manual) 0.9 H PT INR APTT Fibrinogen D-Dimer ABG pH POC ABG pCO2 POC ABG pO2 ABG pO2 ABG HCO3 ABG Base Excess ABG Hemoglobin ABG Oxyhemoglobin ABG Sodium ABG Potassium ABG Chloride ABG Glucose VBG pH Oxyhemoglobin Carboxyhemoglobin Sodium Potassium Chloride Carbon Dioxide BUN 28 H Creatinine 1.6 H Glucose 141 H POC Glucose 126 H Lactic Acid Calcium 7.6 L Ionized Calcium Magnesium AST 162 H ALT 103 H Alkaline Phosphatase Lactate Dehydrogenase NT-Pro-B Natriuret Pep Total Protein 5.4 L Albumin 2.7 L Arterial Blood Glucose Arterial Blood Ionized Calcium Urine WBC (Auto) Phenytoin Crossmatch 10/08/20 10/08/2010/08/20 11:20 16:05 20:14 WBC RBC Hgb Hct MCV MCH MCHC RDW Plt Count Lymph % (Auto) [place] % (Auto) Lymph # (Auto) [place] # (Auto) Seg Neutrophils % Seg Neuts % (Manual) Lymphocytes % (Manual) Monocytes % (Manual) Nucleated RBC % Seg Neutrophils # Seg Neutrophils # Man Lymphocytes # (Manual) Monocytes # (Manual) PT INR APTT Fibrinogen D-Dimer ABG pH POC ABG pCO2 POC ABG pO2 ABG pO2 ABG HCO3 ABG Base Excess ABG Hemoglobin ABG Oxyhemoglobin ABG Sodium ABG Potassium ABG Chloride ABG Glucose VBG pH Oxyhemoglobin Carboxyhemoglobin Sodium Potassium Chloride Carbon Dioxide BUN Creatinine Glucose POC Glucose 127 H 172 H 147 H Lactic Acid Calcium Ionized Calcium Magnesium AST ALT Alkaline Phosphatase Lactate Dehydrogenase NT-Pro-B Natriuret Pep Total Protein Albumin Arterial Blood Glucose Arterial Blood Ionized Calcium Urine WBC (Auto) Phenytoin Crossmatch 10/08/20 10/08/20 10/09/20 21:27 23:24 02:10 WBC RBC Hgb Hct MCV MCH MCHC RDW Plt Count Lymph % (Auto) [place] % (Auto) Lymph # (Auto) [place] # (Auto) Seg Neutrophils % Seg Neuts % (Manual) Lymphocytes % (Manual) Monocytes % (Manual) Nucleated RBC % Seg Neutrophils # Seg Neutrophils # Man Lymphocytes # (Manual) Monocytes # (Manual) PT INR APTT Fibrinogen D-Dimer ABG pH POC ABG pCO2 POC ABG pO2 ABG pO2 ABG HCO3 ABG Base Excess ABG Hemoglobin ABG Oxyhemoglobin ABG Sodium ABG Potassium ABG Chloride ABG Glucose VBG pH Oxyhemoglobin Carboxyhemoglobin Sodium Potassium Chloride Carbon Dioxide BUN Creatinine Glucose POC Glucose 140 H 135 H 111 H Lactic Acid Calcium Ionized Calcium Magnesium AST ALT Alkaline Phosphatase Lactate Dehydrogenase NT-Pro-B Natriuret Pep Total Protein Albumin Arterial Blood Glucose Arterial Blood Ionized Calcium Urine WBC (Auto) Phenytoin Crossmatch 10/09/20 10/09/20 10/09/20 03:44 04:39 05:46 WBC 19.7 H RBC 3.51 L Hgb Hct MCV MCH MCHC RDW 17.7 H Plt Count Lymph % (Auto) [place] % (Auto) Lymph # (Auto) [place] # (Auto) Seg Neutrophils % Seg Neuts % (Manual) 86.0 H Lymphocytes % (Manual) 4.0 L Monocytes % (Manual) 9.0 H Nucleated RBC % Seg Neutrophils # Seg Neutrophils # Man 16.9 H Lymphocytes # (Manual) 0.8 L Monocytes # (Manual) 1.8 H PT INR APTT Fibrinogen D-Dimer ABG pH 7.513 H POC ABG pCO2 POC ABG pO2 33.6 L ABG pO2 ABG HCO3 ABG Base Excess ABG Hemoglobin 11.1 L ABG Oxyhemoglobin 70.2 L ABG Sodium ABG Potassium 3.2 L ABG Chloride 108.0 H ABG Glucose 108 H VBG pH Oxyhemoglobin Carboxyhemoglobin Sodium Potassium Chloride Carbon Dioxide BUN Creatinine Glucose POC Glucose 109 H Lactic Acid Calcium Ionized Calcium Magnesium AST ALT Alkaline Phosphatase Lactate Dehydrogenase NT-Pro-B Natriuret Pep Total Protein Albumin Arterial Blood Glucose 108 H Arterial Blood Ionized Calcium 4.3 L Urine WBC (Auto) Phenytoin Crossmatch 10/09/20 10/10/20 10/10/20 05:46 04:00 04:00 WBC 18.4 H RBC Hgb Hct MCV MCH MCHC RDW 17.5 H Plt Count Lymph % (Auto) 9.8 L [place] % (Auto) 8.8 H Lymph # (Auto) [place] # (Auto) 1.6 H Seg Neutrophils % 80.0 H Seg Neuts % (Manual) Lymphocytes % (Manual) Monocytes % (Manual) Nucleated RBC % Seg Neutrophils # 14.7 H Seg Neutrophils # Man Lymphocytes # (Manual) Monocytes # (Manual) PT INR APTT Fibrinogen D-Dimer ABG pH POC ABG pCO2 POC ABG pO2 ABG pO2 ABG HCO3 ABG Base Excess ABG Hemoglobin ABG Oxyhemoglobin ABG Sodium ABG Potassium ABG Chloride ABG Glucose VBG pH Oxyhemoglobin Carboxyhemoglobin Sodium 146 H Potassium 3.2 L 2.9 L* Chloride 108.9 H 112.6 H Carbon Dioxide BUN 34 H 28 H Creatinine 1.4 H 1.3 H Glucose 109 H 101 H POC Glucose Lactic Acid Calcium 7.6 L 7.8 L Ionized Calcium Magnesium AST 137 H 122 H ALT 99 H 81 H Alkaline Phosphatase Lactate Dehydrogenase NT-Pro-B Natriuret Pep Total Protein 5.1 L 5.2 L Albumin 2.6 L 2.7 L Arterial Blood Glucose Arterial Blood Ionized Calcium Urine WBC (Auto) Phenytoin Crossmatch 1210/10/20 10/11/20 04:42 09:50 00:44 WBC RBC Hgb Hct MCV MCH MCHC RDW Plt Count Lymph % (Auto) [place] % (Auto) Lymph # (Auto) [place] # (Auto) Seg Neutrophils % Seg Neuts % (Manual) Lymphocytes % (Manual) Monocytes % (Manual) Nucleated RBC % Seg Neutrophils # Seg Neutrophils # Man Lymphocytes # (Manual) Monocytes # (Manual) PT INR APTT Fibrinogen D-Dimer ABG pH 7.534 H POC ABG pCO2 POC ABG pO2 ABG pO2 95.2 H ABG HCO3 ABG Base Excess ABG Hemoglobin 11.3 L ABG Oxyhemoglobin ABG Sodium ABG Potassium ABG Chloride ABG Glucose VBG pH Oxyhemoglobin Carboxyhemoglobin Sodium Potassium Chloride Carbon Dioxide BUN Creatinine Glucose POC Glucose 109 H 106 H Lactic Acid Calcium Ionized Calcium Magnesium AST ALT Alkaline Phosphatase Lactate Dehydrogenase NT-Pro-B Natriuret Pep Total Protein Albumin Arterial Blood Glucose Arterial Blood Ionized Calcium Urine WBC (Auto) Phenytoin Crossmatch 10/11/20 10/11/20 10/11/20 04:00 04:00 06:08 WBC 27.0 H RBC Hgb Hct MCV MCH MCHC RDW 17.7 H Plt Count Lymph % (Auto) 6.3 L [place] % (Auto) Lymph # (Auto) [place] # (Auto) 1.5 H Seg Neutrophils % 87.1 H Seg Neuts % (Manual) Lymphocytes % (Manual) Monocytes % (Manual) Nucleated RBC % Seg Neutrophils # 23.5 H Seg Neutrophils # Man Lymphocytes # (Manual) Monocytes # (Manual) PT INR APTT Fibrinogen D-Dimer ABG pH POC ABG pCO2 POC ABG pO2 ABG pO2 ABG HCO3 ABG Base Excess ABG Hemoglobin ABG Oxyhemoglobin ABG Sodium ABG Potassium ABG Chloride ABG Glucose VBG pH Oxyhemoglobin Carboxyhemoglobin Sodium Potassium 3.2 L Chloride 110.4 H Carbon Dioxide 19 L BUN 22 H Creatinine Glucose 116 H POC Glucose 107 H Lactic Acid Calcium 7.7 L Ionized Calcium Magnesium 1.60 L AST ALT Alkaline Phosphatase Lactate Dehydrogenase NT-Pro-B Natriuret Pep Total Protein Albumin Arterial Blood Glucose Arterial Blood Ionized Calcium Urine WBC (Auto) Phenytoin Crossmatch 10/11/20 10/11/20 10/12/20 11:41 13:26 03:52 WBC RBC Hgb Hct MCV MCH MCHC RDW Plt Count Lymph % (Auto) [place] % (Auto) Lymph # (Auto) [place] # (Auto) Seg Neutrophils % Seg Neuts % (Manual) Lymphocytes % (Manual) Monocytes % (Manual) Nucleated RBC % Seg Neutrophils # Seg Neutrophils # Man Lymphocytes # (Manual) Monocytes # (Manual) PT INR APTT Fibrinogen D-Dimer ABG pH POC ABG pCO2 POC ABG pO2 ABG pO2 ABG HCO3 ABG Base Excess ABG Hemoglobin ABG Oxyhemoglobin ABG Sodium ABG Potassium ABG Chloride ABG Glucose VBG pH Oxyhemoglobin Carboxyhemoglobin Sodium Potassium Chloride Carbon Dioxide BUN Creatinine Glucose POC Glucose 116 H 114 H Lactic Acid Calcium Ionized Calcium Magnesium AST ALT Alkaline Phosphatase Lactate Dehydrogenase NT-Pro-B Natriuret Pep Total Protein Albumin Arterial Blood Glucose Arterial Blood Ionized Calcium Urine WBC (Auto) 24.0 H Phenytoin Crossmatch 10/12/20 10/12/20 10/12/20 04:24 14:47 21:33 WBC RBC Hgb Hct MCV MCH MCHC RDW Plt Count Lymph % (Auto) [place] % (Auto) Lymph # (Auto) [place] # (Auto) Seg Neutrophils % Seg Neuts % (Manual) Lymphocytes % (Manual) Monocytes % (Manual) Nucleated RBC % Seg Neutrophils # Seg Neutrophils # Man Lymphocytes # (Manual) Monocytes # (Manual) PT INR APTT Fibrinogen D-Dimer ABG pH POC ABG pCO2 POC ABG pO2 ABG pO2 ABG HCO3 ABG Base Excess ABG Hemoglobin ABG Oxyhemoglobin ABG Sodium ABG Potassium ABG Chloride ABG Glucose VBG pH Oxyhemoglobin Carboxyhemoglobin Sodium Potassium Chloride 109.9 H Carbon Dioxide 13 L BUN 18 H Creatinine Glucose 119 H POC Glucose 107 H Lactic Acid Calcium 7.6 L Ionized Calcium Magnesium 1.60 L AST ALT Alkaline Phosphatase Lactate Dehydrogenase NT-Pro-B Natriuret Pep Total Protein Albumin Arterial Blood Glucose Arterial Blood Ionized Calcium Urine WBC (Auto) Phenytoin Crossmatch 10/12/20 10/12/20 10/13/20 Unknown Unknown 07:00 WBC 24.3 H RBC 3.38 L Hgb 9.8 L Hct MCV MCH MCHC RDW 18.7 H Plt Count Lymph % (Auto) [place] % (Auto) Lymph # (Auto) [place] # (Auto) Seg Neutrophils % Seg Neuts % (Manual) 93.5 H Lymphocytes % (Manual) 4.5 L Monocytes % (Manual) Nucleated RBC % Seg Neutrophils # Seg Neutrophils # Man 22.7 H Lymphocytes # (Manual) 1.1 L Monocytes # (Manual) PT INR APTT Fibrinogen D-Dimer ABG pH POC ABG pCO2 POC ABG pO2 ABG pO2 ABG HCO3 ABG Base Excess ABG Hemoglobin ABG Oxyhemoglobin ABG Sodium ABG Potassium ABG Chloride ABG Glucose VBG pH Oxyhemoglobin Carboxyhemoglobin Sodium 135 L D Potassium 3.1 L Chloride Carbon Dioxide 17 L BUN Creatinine Glucose 510 H* POC Glucose Lactic Acid Calcium 7.2 L Ionized Calcium Magnesium AST ALT Alkaline Phosphatase Lactate Dehydrogenase NT-Pro-B Natriuret Pep Total Protein Albumin Arterial Blood Glucose Arterial Blood Ionized Calcium Urine WBC (Auto) Phenytoin 5.7 L Crossmatch 10/13/20 10/13/20 10/13/20 07:00 07:00 07:18 WBC 23.6 H RBC 3.26 L Hgb 9.4 L Hct 28.7 L MCV MCH MCHC RDW 18.3 H Plt Count Lymph % (Auto) [place] % (Auto) Lymph # (Auto) [place] # (Auto) Seg Neutrophils % Seg Neuts % (Manual) Lymphocytes % (Manual) Monocytes % (Manual) Nucleated RBC % Seg Neutrophils # Seg Neutrophils # Man Lymphocytes # (Manual) Monocytes # (Manual) PT INR APTT Fibrinogen D-Dimer ABG pH 7.473 H POC ABG pCO2 20.7 L POC ABG pO2 137.9 H ABG pO2 ABG HCO3 ABG Base Excess ABG Hemoglobin 11.2 L ABG Oxyhemoglobin 98.3 H ABG Sodium 135.9 L ABG Potassium ABG Chloride 111.0 H ABG Glucose 109 H VBG pH Oxyhemoglobin Carboxyhemoglobin 0.3 L Sodium 135 L Potassium 3.5 L Chloride 109.1 H Carbon Dioxide 18 L BUN Creatinine Glucose POC Glucose Lactic Acid Calcium 7.3 L Ionized Calcium Magnesium 1.60 L AST ALT Alkaline Phosphatase Lactate Dehydrogenase NT-Pro-B Natriuret Pep Total Protein Albumin Arterial Blood Glucose 109 H Arterial Blood Ionized Calcium Urine WBC (Auto) Phenytoin Crossmatch 10/14/20 10/14/20 04:00 04:00 WBC 28.6 H RBC 3.61 L Hgb Hct MCV MCH MCHC RDW 18.3 H Plt Count Lymph % (Auto) [place] % (Auto) Lymph # (Auto) [place] # (Auto) Seg Neutrophils % Seg Neuts % (Manual) 88.0 H Lymphocytes % (Manual) 5.0 L Monocytes % (Manual) Nucleated RBC % Seg Neutrophils # Seg Neutrophils # Man 25.2 H Lymphocytes # (Manual) Monocytes # (Manual) 1.4 H PT INR APTT Fibrinogen D-Dimer ABG pH POC ABG pCO2 POC ABG pO2 ABG pO2 ABG HCO3 ABG Base Excess ABG Hemoglobin ABG Oxyhemoglobin ABG Sodium ABG Potassium ABG Chloride ABG Glucose VBG pH Oxyhemoglobin Carboxyhemoglobin Sodium Potassium Chloride 109.9 H Carbon Dioxide 17 L BUN Creatinine Glucose POC Glucose Lactic Acid Calcium Ionized Calcium Magnesium AST ALT Alkaline Phosphatase Lactate Dehydrogenase NT-Pro-B Natriuret Pep Total Protein Albumin Arterial Blood Glucose Arterial Blood Ionized Calcium Urine WBC (Auto) Phenytoin Crossmatch
--- NOTE | 2020-10-14 17:53 | Progress Note ---
Assessment and Plan A: POD#11 s/p repeat section at 36 wks secondary to Eclampsia and Cardiac Arrest with Resuscitation POD#11 s/p supracervical abdominal hysterectomy secondary to Uterine Atony, Hemorrhage and Disseminated Intravascular Coagulation (DIC) s/p multiple transfusions of blood products Acute Kidney Injury, nonoligouric -Status post cardiac arrest 10/07/2020 requiring reintubation. -Shock, DIC: Secondary to hemorrhage-stable -Sepsis: followed by ID, abx/imaging recommendations noted -Acute kidney injury: resolved, labs stable -Acute respiratory failure: remains on the vent, settings reviewed -Preeclampsia: s/p Magnesium P: Continue supportive care as recommended by Pulmonology/Critical Care, Internal Medicine, Infectious Disease Awaiting formal neurology evaluation Continue routine postoperative care Subjective - Subjective Principal diagnosis: Eclampsia/HELLP Syndrome, ADOLPH, DIC; s/p , s/p supracervical hyst Interval history: 30y/o POD #11 s/p supracervical hysterectomy for eclampsia and DIC. VSS reviewed, significant for temperature elevations. Abx managed per ID. CT Abd/Pelvis recommended/ordered pulmonary. Still unresponsive to commands/ now with posturing of lower extremities. Richi removed from incision. Minimal drainage noted. Objective - Vital Signs Latest vital signs: Vital Signs Temp Pulse Pulse Pulse Resp Resp BP 10/14/20 17:15 109 H 29 H 150/83 10/14/20 17:00 109 H 31 H 166/88 10/14/20 16:45 113 H 34 H 160/69 10/14/20 16:32 113 H 155/96 10/14/20 16:30 112 H 33 H 155/96 10/14/20 16:15 110 H 35 H 149/86 10/14/20 16:00 99.8 F H 105 H 29 H 146/83 10/14/20 15:45 103 H 23 149/84 10/14/20 15:30 104 H 18 143/85 10/14/20 15:15 106 H 32 H 139/77 10/14/20 15:05 110 H 31 H 10/14/20 15:00 101.1 F H 103 H 32 H 137/82 10/14/20 14:45 104 H 26 H 145/73 10/14/20 14:30 100 H 29 H 151/78 10/14/20 14:15 99 H 27 H 174/85 10/14/20 14:10 91 H 176/87 10/14/20 14:07 97 H 176/87 10/14/20 14:00 93 H 24 176/87 10/14/20 13:45 96 H 22 175/81 10/14/20 13:30 97 H 34 H 164/95 10/14/20 13:15 90 25 H 160/94 10/14/20 13:00 93 H 28 H 161/95 10/14/20 12:45 95 H 29 H 164/95 10/14/20 12:30 99 H 32 H 165/100 10/14/20 12:15 93 H 27 H 169/97 10/14/20 12:02 93 H 172/99 10/14/20 12:00 96 H 29 H 172/93 10/14/20 11:45 101 H 30 H 162/96 10/14/20 11:37 101.1 F H 10/14/20 11:30 101 H 32 H 163/85 10/14/20 11:15 98 H 30 H 159/89 10/14/20 11:00 96 H 30 H 155/98 10/14/20 10:45 99 H 29 H 149/95 10/14/20 10:30 94 H 27 H 143/93 10/14/20 10:15 100 H 32 H 140/101 10/14/20 10:00 96 H 29 H 145/93 10/14/20 09:45 98 H 31 H 163/95 10/14/20 09:30 96 H 31 H 166/101 10/14/20 09:16 98 H 31 H 10/14/20 09:15 97 H 29 H 157/99 10/14/20 09:00 98 H 29 H 163/97 10/14/20 08:45 94 H 27 H 150/95 10/14/20 08:37 94 H 154/93 10/14/20 08:30 94 H 29 H 154/93 10/14/20 08:15 97 H 29 H 145/96 10/14/20 08:01 96 H 147/91 10/14/20 08:00 99.5 F 96 H 97 H 28 H 147/91 10/14/20 07:45 106 H 32 H 182/112 10/14/20 07:30 98 H 28 H 152/94 10/14/20 07:15 99 H 28 H 158/95 10/14/20 07:00 93 H 26 H 162/92 10/14/20 06:45 102 H 28 H 150/102 10/14/20 06:30 101 H 29 H 159/96 10/14/20 06:15 103 H 29 H 178/97 10/14/20 06:00 101 H 28 H 179/98 10/14/20 05:45 101 H 27 H 176/103 10/14/20 05:30 96 H 28 H 169/105 10/14/20 05:16 156/93 10/14/20 05:00 102 H 30 H 156/93 10/14/20 04:46 103 H 30 H 166/89 10/14/20 04:30 106 H 35 H 163/108 10/14/20 04:17 100 H 146/78 10/14/20 04:15 100 H 25 H 146/78 10/14/20 04:00 100.1 F H 102 H 98 H 27 H 173/91 10/14/20 03:45 102 H 29 H 173/91 10/14/20 03:30 96 H 25 H 162/92 10/14/20 03:15 101 H 27 H 165/84 10/14/20 03:00 97 H 29 H 170/90 10/14/20 02:45 99 H 39 H 161/87 10/14/20 02:30 98 H 29 H 156/90 10/14/20 02:15 96 H 30 H 154/86 10/14/20 02:00 102 H 28 H 149/89 10/14/20 01:45 100 H 30 H 156/90 10/14/20 01:30 97 H 58 H 144/86 10/14/20 01:15 92 H 28 H 150/85 10/14/20 01:00 100 H 29 H 157/92 10/14/20 00:45 92 H 24 148/83 10/14/20 00:30 93 H 28 H 137/82 10/14/20 00:26 96 H 26 H 10/14/20 00:24 95 H 148/91 10/14/20 00:15 96 H 58 H 148/91 10/14/20 00:00 100.0 F H 95 H 98 H 23 144/96 10/13/20 23:45 93 H 23 136/86 10/13/20 23:30 88 27 H 151/71 10/13/20 23:15 91 H 56 H 154/98 10/13/20 23:00 93 H 27 H 153/94 10/13/20 22:45 96 H 45 H 139/102 10/13/20 22:30 90 38 H 133/82 10/13/20 22:15 86 54 H 156/83 10/13/20 22:04 91 H 38 H 156/86 10/13/20 22:00 88 26 H 156/86 10/13/20 21:52 92 H 29 H 144/93 10/13/20 21:45 95 H 48 H 144/93 10/13/20 21:40 96 H 148/88 10/13/20 21:30 96 H 62 H 148/88 10/13/20 21:15 93 H 58 H 136/90 10/13/20 21:00 93 H 56 H 159/94 10/13/20 20:45 98 H 33 H 162/93 10/13/20 20:30 96 H 31 H 145/113 10/13/20 20:20 91 H 136/84 10/13/20 20:15 91 H 28 H 136/84 10/13/20 20:00 100.6 F H 98 H 98 H 50 H 147/92 10/13/20 19:45 94 H 27 H 147/92 10/13/20 19:30 92 H 25 H 147/109 10/13/20 19:15 94 H 27 H 142/93 10/13/20 19:00 91 H 25 H 149/94 10/13/20 18:45 94 H 26 H 147/87 10/13/20 18:30 86 41 H 132/98 10/13/20 18:15 86 18 131/79 10/13/20 18:01 100 H 32 H 147/101 Pulse Ox 10/14/20 17:15 96 10/14/20 17:00 96 10/14/20 16:45 94 10/14/20 16:32 100 10/14/20 16:30 95 10/14/20 16:15 94 10/14/20 16:00 95 10/14/20 15:45 95 10/14/20 15:30 95 10/14/20 15:15 94 10/14/20 15:05 10/14/20 15:00 94 10/14/20 14:45 96 10/14/20 14:30 96 10/14/20 14:15 98 10/14/20 14:10 10/14/20 14:07 10/14/20 14:00 98 10/14/20 13:45 96 10/14/20 13:30 96 10/14/20 13:15 100 10/14/20 13:00 99 10/14/20 12:45 96 10/14/20 12:30 98 10/14/20 12:15 100 10/14/20 12:02 100 10/14/20 12:00 97 10/14/20 11:45 98 10/14/20 11:37 10/14/20 11:30 97 10/14/20 11:15 97 10/14/20 11:00 97 10/14/20 10:45 97 10/14/20 10:30 97 10/14/20 10:15 98 10/14/20 10:00 97 10/14/20 09:45 98 10/14/20 09:30 97 10/14/20 09:16 10/14/20 09:15 97 10/14/20 09:00 98 10/14/20 08:45 98 10/14/20 08:37 100 10/14/20 08:30 98 10/14/20 08:15 99 10/14/20 08:01 10/14/20 08:00 96 10/14/20 07:45 98 10/14/20 07:30 96 10/14/20 07:15 98 10/14/20 07:00 97 10/14/20 06:45 97 10/14/20 06:30 96 10/14/20 06:15 98 10/14/20 06:00 98 10/14/20 05:45 97 10/14/20 05:30 97 10/14/20 05:16 98 10/14/20 05:00 97 10/14/20 04:46 97 10/14/20 04:30 99 10/14/20 04:17 99 10/14/20 04:15 96 10/14/20 04:00 98 10/14/20 03:45 97 10/14/20 03:30 98 10/14/20 03:15 96 10/14/20 03:00 98 10/14/20 02:45 96 10/14/20 02:30 99 10/14/20 02:15 96 10/14/20 02:00 96 10/14/20 01:45 96 10/14/20 01:30 97 10/14/20 01:15 98 10/14/20 01:00 99 10/14/20 00:45 97 10/14/20 00:30 98 10/14/20 00:26 10/14/20 00:24 100 10/14/20 00:15 97 10/14/20 00:00 99 10/13/20 23:45 97 10/13/20 23:30 98 10/13/20 23:15 99 10/13/20 23:00 96 10/13/20 22:45 95 10/13/20 22:30 97 10/13/20 22:15 96 10/13/20 22:04 100 10/13/20 22:00 96 10/13/20 21:52 99 10/13/20 21:45 97 10/13/20 21:40 10/13/20 21:30 95 10/13/20 21:15 98 10/13/20 21:00 96 10/13/20 20:45 96 10/13/20 20:30 96 10/13/20 20:20 99 10/13/20 20:15 97 10/13/20 20:00 98 10/13/20 19:45 95 10/13/20 19:30 99 10/13/20 19:15 97 10/13/20 19:00 97 10/13/20 18:45 97 10/13/20 18:30 99 10/13/20 18:15 100 10/13/20 18:01 97 Intake and Output 10/14/20 10/14/20 10/14/20 06:59 14:59 22:59 Intake Total 1581.25 920 1211.25 Output Total 2600 1800 Balance -1018.75 -880 1211.25 Intake: IV 1256.25 1211.25 D10w 1,000 ml @ 75 mls/hr 996.25 951.25 IV DIRECT ERINN Rx#: [id number] dexmedeTOMIDine 1,000 MCG 260 260 In NaCl 0.9% 250Ml 250 ml @ 0.2 MCG/KG/HR 7.249 mls/hr IV TITRATE [facility] Rx# :[id number] Intake, Free Water 400 Tube Feeding 325 520 Output: Gastric Drainage 0 Oral 0 Urine 2600 1800 Indwelling Catheter 2600 1800 Other: Total, Intake Amount 65 65 Total, Output Amount 650 600 Voiding Method Indwelling Catheter Indwelling Catheter # Bowel Movements 1 Weight 121.3 kg Patient Weight 10/15/20 06:59 Weight 121.3 kg - Exam Narrative Exam: General appearance: Sedated intubated HENT: Normocephalic, Atraumatic Neck: supple, tracheal midline, no JVD Lungs:CTAB CV: RRR Abdomen: Soft, Nondistened, incision intact serosanguinous drainage Extremities: 2+ edema Skin: No rash. Psych: Sedated Neuro: Sedated - Labs Labs: Abnormal lab results 10/14/20 10/14/20 Range/Units 04:00 04:00 WBC 28.6 H (4.5-11.0) K/mm3 RBC 3.61 L (3.65-5.03) M/mm3 RDW 18.3 H (13.2-15.2) % Seg Neuts % (Manual) 88.0 H (40.0-70.0) % Lymphocytes % (Manual) 5.0 L (13.4-35.0) % Seg Neutrophils # Man 25.2 H (1.8-7.7) K/mm3 Monocytes # (Manual) 1.4 H (0.0-0.8) K/mm3 Chloride 109.9 H (98-107) mmol/L Carbon Dioxide 17 L (22-30) mmol/L
[2020-10-14] MEDS: CEFEPIME/NS 2 GM/100 ML 2 GM/100 ML BAG IV SCH (21:46)
[2020-10-15] MEDS: IPRATROPIUM/ALBUTEROL SULFATE 3 ML AMPUL.NEB IH SCH ×3 (00:13→16:37)
[2020-10-15] MEDS: TOPIRAMATE TAB 25 MG TAB PO SCH ×3 (00:45→21:30)
[2020-10-15] MEDS: dexmedeTOMIDine 1,000 MCG in SODIUM CHLORIDE 0.9% 250ML 250 ML IV SCH ×4 (00:45→21:14)
[2020-10-15] MEDS: INSULIN REGULAR, HUMAN 100 UNIT/ML 3ML VIAL SUB-Q SCH ×6 (01:00→21:15)
[2020-10-15] MEDS: VANCOMYCIN 250 MG/10 ML ORAL LIQD PO SCH ×4 (03:07→19:53)
[2020-10-15] MEDS: VANCOMYCIN 1,750 MG in SODIUM CHLORIDE 0.9% 500 ML 500 ML IV SCH ×2 (03:07→13:53)
[2020-10-15] MEDS: metroNIDAZOLE/NS 500 MG/100 ML 500 MG/100 ML BAG IV SCH ×3 (06:02→21:30)
[2020-10-15 06:10] LABS: Hemoglobin 9.9 gm/dl (10.1-14.3); Mean Corpuscular HGB Conc 33 % (30-34); Mean Corpuscular Volume 87 fl (79-97); Platelet Count 350 K/mm3 (140-440); Red Blood Count 3.43 M/mm3 (3.65-5.03); Red Cell Distribution Width 18.2 % (13.2-15.2)
[2020-10-15 06:27] LABS: Blood Urea Nitrogen 12 mg/dL (7-17); Calcium 8.3 mg/dL (8.4-10.2); Hemolysis Index 1
[2020-10-15 06:28] LABS: BUN/Creatinine Ratio 20
[2020-10-15 06:49] LABS: Band Neutrophils # (Manual) 0.5 K/mm3; Total Cells Counted 100
[2020-10-15 06:50] LABS: Anisocytosis 1+; Hypochromasia Few
[2020-10-15 06:51] LABS: Platelet Estimate Consistent w Auto
--- NOTE | 2020-10-15 08:40 | Progress Note ---
Assessment and Plan - Patient Problems (1) Acute respiratory failure with hypoxia Current Visit: Yes Status: Acute (2) Cardiac arrest Current Visit: Yes Status: Acute (3) DIC (disseminated intravascular coagulation) Current Visit: Yes Status: Acute (4) Encephalopathy Current Visit: Yes Status: Acute Plan to address problem: neurological status remains most significant concern continue to manage febrile episodes has had return of normal renal function leukocytosis remains unchanged Subjective - Subjective Date of service: 10/15/20 Principal diagnosis: Eclampsia/HELLP Syndrome, ADOLPH, DIC; s/p , s/p supracervical hyst Interval history: 30y/o POD #12 s/p supracervical hysterectomy for eclampsia and DIC. Patient r emains unresponsive. Patient with temp spike of 100.7 around 0400. Previous EEG with moderate to severe encephalopathy. MRI of brain has not been performed yet while patient remains intubated. No clear evidence of improvement in neurological status at this time. Objective - Vital Signs Latest vital signs: Vital Signs Temp Pulse Pulse Pulse Resp Resp BP 10/15/20 07:38 93 H 25 H 10/15/20 07:35 92 H 135/81 10/15/20 06:45 94 H 16 138/85 10/15/20 06:30 86 17 133/78 10/15/20 06:15 89 24 144/81 10/15/20 06:00 87 21 137/74 10/15/20 05:45 85 20 137/73 10/15/20 05:30 88 17 130/77 10/15/20 05:15 90 16 139/67 10/15/20 05:00 88 17 157/70 10/15/20 04:45 97 H 22 157/92 10/15/20 04:30 87 16 140/84 10/15/20 04:25 89 150/84 10/15/20 04:15 88 19 150/84 10/15/20 04:00 100.7 F H 88 87 15 144/85 10/15/20 03:45 97 H 22 147/89 10/15/20 03:30 98 H 23 157/94 10/15/20 03:15 98 H 22 152/86 10/15/20 03:00 97 H 19 153/81 10/15/20 02:45 91 H 16 150/78 10/15/20 02:30 99 H 31 H 163/98 10/15/20 02:15 99 H 27 H 139/80 10/15/20 02:00 92 H 20 146/83 10/15/20 01:45 103 H 31 H 174/107 10/15/20 01:30 102 H 29 H 168/98 10/15/20 01:15 101 H 29 H 168/101 10/15/20 01:00 101 H 21 153/84 10/15/20 00:45 101 H 25 H 160/90 10/15/20 00:30 91 H 17 152/86 10/15/20 00:16 96 H 26 H 10/15/20 00:15 92 H 22 154/86 10/15/20 00:14 99 H 154/94 10/15/20 00:00 98.7 F 99 H 92 H 21 154/94 10/14/20 23:45 96 H 18 157/97 10/14/20 23:43 95 H 21 147/97 10/14/20 23:30 95 H 30 H 147/97 10/14/20 23:15 96 H 19 151/100 10/14/20 23:00 98 H 29 H 155/95 10/14/20 22:46 99 H 29 H 155/95 10/14/20 22:30 95 H 29 H 135/83 10/14/20 22:15 93 H 20 132/73 10/14/20 22:00 104 H 25 H 135/84 10/14/20 21:46 107 H 147/80 10/14/20 21:45 102 H 28 H 147/80 10/14/20 21:30 107 H 25 H 135/93 10/14/20 21:15 108 H 32 H 144/83 10/14/20 21:00 109 H 26 H 162/101 10/14/20 20:45 101 H 23 137/81 10/14/20 20:30 101 H 18 153/83 10/14/20 20:15 113 H 37 H 159/104 10/14/20 20:12 111 H 149/87 10/14/20 20:00 98.8 F 105 H 102 H 27 H 149/87 10/14/20 19:45 111 H 31 H 136/91 10/14/20 19:30 113 H 34 H 137/88 10/14/20 19:15 112 H 32 H 159/87 12/30/20 19:00 112 H 34 H 153/91 10/14/20 18:45 108 H 28 H 158/83 10/14/20 18:30 114 H 33 H 147/85 10/14/20 18:15 112 H 31 H 139/86 10/14/20 18:00 114 H 33 H 169/91 10/14/20 17:45 110 H 30 H 156/84 10/14/20 17:30 112 H 33 H 155/92 10/14/20 17:15 109 H 29 H 150/83 10/14/20 17:00 109 H 31 H 166/88 10/14/20 16:45 113 H 34 H 160/69 10/14/20 16:32 113 H 155/96 10/14/20 16:30 112 H 33 H 155/96 10/14/20 16:15 110 H 35 H 149/86 10/14/20 16:00 99.8 F H 111 H 111 H 31 H 146/83 10/14/20 15:45 103 H 23 149/84 10/14/20 15:30 104 H 18 143/85 10/14/20 15:15 106 H 32 H 139/77 10/14/20 15:05 110 H 31 H 10/14/20 15:00 101.1 F H 103 H 32 H 137/82 10/14/20 14:45 104 H 26 H 145/73 10/14/20 14:30 100 H 29 H 151/78 10/14/20 14:15 99 H 27 H 174/85 10/14/20 14:10 91 H 176/87 10/14/20 14:07 97 H 176/87 10/14/20 14:00 93 H 24 176/87 10/14/20 13:45 96 H 22 175/81 10/14/20 13:30 97 H 34 H 164/95 10/14/20 13:15 90 25 H 160/94 10/14/20 13:00 93 H 28 H 161/95 10/14/20 12:45 95 H 29 H 164/95 10/14/20 12:30 99 H 32 H 165/100 10/14/20 12:15 93 H 27 H 169/97 10/14/20 12:02 93 H 172/99 10/14/20 12:00 91 H 91 H 28 H 172/93 10/14/20 11:45 101 H 30 H 162/96 10/14/20 11:37 101.1 F H 10/14/20 11:30 101 H 32 H 163/85 10/14/20 11:15 98 H 30 H 159/89 10/14/20 11:00 96 H 30 H 155/98 10/14/20 10:45 99 H 29 H 149/95 10/14/20 10:30 94 H 27 H 143/93 10/14/20 10:15 100 H 32 H 140/101 10/14/20 10:00 96 H 29 H 145/93 10/14/20 09:45 98 H 31 H 163/95 10/14/20 09:30 96 H 31 H 166/101 10/14/20 09:16 98 H 31 H 10/14/20 09:15 97 H 29 H 157/99 10/14/20 09:00 98 H 29 H 163/97 10/14/20 08:45 94 H 27 H 150/95 Pulse Ox 10/15/20 07:38 10/15/20 07:35 100 10/15/20 06:45 97 10/15/20 06:30 97 10/15/20 06:15 97 10/15/20 06:00 96 10/15/20 05:45 96 10/15/20 05:30 96 10/15/20 05:15 99 10/15/20 05:00 96 10/15/20 04:45 98 10/15/20 04:30 95 10/15/20 04:25 99 10/15/20 04:15 97 10/15/20 04:00 96 10/15/20 03:45 96 10/15/20 03:30 99 10/15/20 03:15 95 10/15/20 03:00 94 10/15/20 02:45 95 10/15/20 02:30 96 10/15/20 02:15 97 10/15/20 02:00 97 10/15/20 01:45 97 10/15/20 01:30 98 10/15/20 01:15 97 10/15/20 01:00 97 10/15/20 00:45 97 10/15/20 00:30 96 10/15/20 00:16 10/15/20 00:15 98 10/15/20 00:14 99 10/15/20 00:00 99 10/14/20 23:45 96 10/14/20 23:43 99 10/14/20 23:30 96 10/14/20 23:15 97 10/14/20 23:00 98 10/14/20 22:46 96 10/14/20 22:30 96 10/14/20 22:15 96 10/14/20 22:00 96 10/14/20 21:46 10/14/20 21:45 95 10/14/20 21:30 95 10/14/20 21:15 96 10/14/20 21:00 98 10/14/20 20:45 98 10/14/20 20:30 97 10/14/20 20:15 97 10/14/20 20:12 99 10/14/20 20:00 100 10/14/20 19:45 95 10/14/20 19:30 95 10/14/20 19:15 95 10/14/20 19:00 95 10/14/20 18:45 95 10/14/20 18:30 95 10/14/20 18:15 94 10/14/20 18:00 95 10/14/20 17:45 96 10/14/20 17:30 95 10/14/20 17:15 96 10/14/20 17:00 96 10/14/20 16:45 94 10/14/20 16:32 100 10/14/20 16:30 95 10/14/20 16:15 94 10/14/20 16:00 99 10/14/20 15:45 95 10/14/20 15:30 95 10/14/20 15:15 94 10/14/20 15:05 10/14/20 15:00 94 10/14/20 14:45 96 10/14/20 14:30 96 10/14/20 14:15 98 10/14/20 14:10 10/14/20 14:07 10/14/20 14:00 98 10/14/20 13:45 96 10/14/20 13:30 96 10/14/20 13:15 100 10/14/20 13:00 99 10/14/20 12:45 96 10/14/20 12:30 98 10/14/20 12:15 100 10/14/20 12:02 100 10/14/20 12:00 100 10/14/20 11:45 98 10/14/20 11:37 10/14/20 11:30 97 10/14/20 11:15 97 10/14/20 11:00 97 10/14/20 10:45 97 10/14/20 10:30 97 10/14/20 10:15 98 10/14/20 10:00 97 10/14/20 09:45 98 10/14/20 09:30 97 10/14/20 09:16 10/14/20 09:15 97 10/14/20 09:00 98 10/14/20 08:45 98 Intake and Output 10/14/20 10/15/20 10/15/20 22:59 06:59 14:59 Intake Total 2194.876 1226.374 Output Total 850 1750 Balance 1344.876 -523.626 Intake: IV 1424.876 506.374 D10w 1,000 ml @ 75 mls/hr 951.25 IV DIRECT ERINN Rx#: [id number] FLAGYL 500 MG/100 ML 500 100 100 mg In 100 ml @ 100 mls/hr IV Q8H ERINN Rx#:[id number] dexmedeTOMIDine 1,000 MCG 373.626 406.374 In NaCl 0.9% 250Ml 250 ml @ 0.2 MCG/KG/HR 7.249 mls/hr IV TITRATE [facility]IN[facility] Rx# :[id number] Intake, Free Water 250 200 Tube Feeding 520 520 Output: Urine 850 1750 Indwelling Catheter 850 1750 Other: Total, Intake Amount 65 65 Total, Output Amount 850 900 Voiding Method Indwelling Catheter Indwelling Catheter Weight 118 kg 118 kg Patient Weight 10/16/20 06:59 Weight 118 kg - Exam Incision: Present: intact, other Comments: moisture without active drainage - Labs Labs: Abnormal lab results 10/15/20 10/15/20 Range/Units 05:50 05:50 WBC 23.2 H (4.5-11.0) K/mm3 RBC 3.43 L (3.65-5.03) M/mm3 Hgb 9.9 L (10.1-14.3) gm/dl Hct 30.0 L (30.3-42.9) % RDW 18.2 H (13.2-15.2) % Seg Neuts % (Manual) 90.0 H (40.0-70.0) % Lymphocytes % (Manual) 4.0 L (13.4-35.0) % Seg Neutrophils # Man 20.9 H (1.8-7.7) K/mm3 Lymphocytes # (Manual) 0.9 L (1.2-5.4) K/mm3 Monocytes # (Manual) 0.9 H (0.0-0.8) K/mm3 Chloride 110.3 H (98-107) mmol/L Carbon Dioxide 18 L (22-30) mmol/L Glucose 105 H (65-100) mg/dL Calcium 8.3 L (8.4-10.2) mg/dL
--- NOTE | 2020-10-15 08:49 | Progress Note ---
Assessment and Plan Assessment and plan: -- Sepsis with presumed Pneumonia Teated with iv abx, follow Cx -Completed cefepime course 5 days on 10/09/2020 -Check MRSA culture -Start vancomycin p.o. empirically for C. difficile total 10 days, given diarrhea and worsening leukocytosis, --Acute respiratory failure with hypoxia Patient intubated Vent management per CC --DIC (disseminated intravascular coagulation) vs HELLP syndrome Has anemia,thrombocytopenia and elevated liver enzymes Patient received multiple units of RBCs, FFP's, cryo Hematology/oncology recommendations appreciated Continue to trend fibrinogen and INR Critical care on board --Possible Eclampsia/HELLP Syndrome Patient presented with seizure-->hypoxia-->urgent C section-->hysterectomy for severe bleeding/DIC developed severe anemia-->received RBC, plt, FFP, cryo was on max pressors-->now off pressors still on vent, on sedation Hematology following --s/p Cardiac arrest x2 on admission and on 10/07 ACLS protocol followed by revival Echo showed preserved Ef --Shock s/p pressor support Likely hypovolemic. on empirical antibiotics for possible sepsis. Continue to monitor blood pressure closely Trend H&H and transfuse as needed --Lactic acidosis As a result of poor organ perfusion and possible sepsis Continue IV hydration. Lactic acid is trending down Nephrology on board --ADOLPH As a result of hypoperfusion and shock Continue IV hydration Cr stable, follow BMP --DVT prophylaxis Patient presented with DIC No anticoagulants The high probability of a clinically significant, sudden or life threatening deterioration of the [pulmonary] system(s) required my full and direct attention, intervention and personal management. The aggregate critical care t cristhian was [35] minutes. This time is in addition to time spent performing reported procedures but includes the following: [x] Data Review and interpretation [x] Patient assessment and monitoring of vital signs [x] Documentation [x] Medication orders and management brief History 30 year old -Uk[place] female CHE 10/25/20 at 36w5d who presents with seizures in triage on 10/02/20. Pt was not able to provide history but per pt's , she presented to the hospital to return a 24 hour urine specimen for analysis. She then suddenly reported that she did not feel good. She was taken to labor and delivery and shortly after arrival, she began seizing. During this time, a code met was called because the patient became hypoxic. She was then noted to be without a pulse. Chest compressions were started immediately, and the patient was emergently taken to the operating room for delivery of the fetus. Off note, This patient has had care at [facility] with comanagement by [facility] since 11 wks complicated by ADHD, morbid obesity, gen eralized anxiety disorder, panic attacks, chronic narcotic use, fibromyalgia, GERD, Irritable Bowel Syndrome, Migraines, h/o endometrial ablation and ovarian vein embolization, genital herpes, insomnia, LGA fetus, nausea and vomiting, polyhydramnios, quad screen positive for Down's Syndrome, and previous x 3. She is GBS negative. 11:30: Pt brought to L&D triage for evaluation of possible labor. Pt accompanied by her spouse. Pt spouse poor historian; unable to obtain history- allergies at this time. Pt taken from registration to triage area via WC. Pt unresponsive, actively seizing with snorous respirations. bell cleaner, Kassy, called and requesting assistance. 11:35: Multiple staff at bedside. Pt 02 sat 67% on nonrebreather, unable to read BP at this time. Yifan Theodore CRNA, at bedside for intubation and assistance with IV insertion. INT attempt by multiple RNs unsuccessful at this time. 11:42: Pt being bagged by KORIN, 02% 79%. No pulse palpated, compressions started at this time; bharati young called and Dr. Newberry preparing OR for emergent c/s. 11:44: Continued compressions on stretcher while transporting pt to OR 1. Pt being bagged with jaw thrust manuever in place by KORIN Stringer student. 11:45: Arrival to OR 1. Dr. Newberry and Dr. Portillo present for emergent c/s. Code team arrived for continued care. patient revived and c/s done Patient has been bleeding from C/s site followed by supracervical hysterectomy for severe bleeding Patient transfused multiple units of PRBC, Patient in DIC. Transferred to the ICU 10/03. Patient seen and examined at bedside this morning. Patient is nonresponsive and mechanically ventilated. On pressors. Labs reviewed-has constanza kocytosis, anemia, thrombocytopenia, ADOLPH and lactic acidosis. Started on IV antibiotics to cover possible sepsis secondary to DIC. Hematology oncology recommendations appreciated-needs additional cryoprecipitate and FFP. Monitor D-dimer, fibrinogen and frequent labs. Nephrology consulted for lactic acidosis and ADOLPH. 10/04. Remains mechanically ventilated. Kevin antibiotics. Labs shows improved acidosis - lactic acid 3.5. Hb drop noted. Getting transfused 2 units PRBCs. Platelet count is ~40k. Continue to monitor labs closely. Critical care team on board. 10/05; xray reviewed, concerning for multifocal infilrate, likely underlying Pneumonia, will add ID consult to assist with management of this critically ill patient, start tube feed, closely monitor renal system 10/06: Resumed care, remains on mechanical ventilation. No active bleeding, H&H stable. Continue to monitor CBC and BMP. Continue IV antibiotic for underlying pneumonia. Follow critical care and ID recommendation. 10/07: Remains on mechanical ventilation. No active bleeding, H&H stable. Critical care following, wean off ventilation as tolerated. 10/08: Patient had another cardiac arrest last night. Remains on mechanical ventilation, update family. Continue supportive care -poor prognosis 10/09: Called patient mother and discussed about patient care and management. Answered all question to best of my knowledge and family satisfaction. Patient remains on mechanical ventilation, cardiac arrest x2 so far. Critically sick, poor prognosis 10/10: remains on mechanical ventilation. h/h stable, no active bleeding. monitor CBC/BMP 10/11: WBC trended up with diarrhea, started on vancomycin po. remains on MV, off pressor, tolerating TF 10/12: remains on MV, off pressor, tolerating TF. called family for update but unable to reach, could not leave message as it was full. cont supportive care, wean off vent as tolerated. 10/13/2020; patient is on mechanical ventilation, tolerating tube feeding. Edis damian has labored breathing. Neuro was consulted and recommend MRI. Patient is on Precedex. Rectal tube in place. 10/14/2020; patient is on mechanical ventilation, Precedex. Patient had fever and blood culture ordered. Patient is on IV vancomycin per ID recommendation. Neuro consulted and recommend MRI. Continue to monitor. Prognosis is guarded. 10/15/2020; patient is on mechanical ventilation, Precedex. Patient had fever and blood culture ordered. Patient is on IV vancomycin per ID recommendation. Neuro consulted and recommend MRI. Continue to monitor. Prognosis is guarded. History Interval history: Patient was seen and evaluated this morning Patient has labored breathing On vent and Precedex Patient is febrile Hospitalist Physical - Physical exam Narrative exam: vITAL SIGNS: Reviewed. GENERAL: Intubated HEAD: No signs of head trauma. EYES: Pupils are equal. MOUTH: OT in place NECK: No adenopathy, no JVD. CHEST: Rales posteriorly CARDIAC: normal S1 and S2, without murmurs, gallops, or rubs. ABDOMEN: Soft, non tender and non distended. surgical wound in tact, No rebound or guarding, and no masses palpated. Bowel Sounds normal. AVINASH drain intact MUSCULOSKELETAL: No edema NEUROLOGIC EXAM: Intubated SKIN: No obvious lesions - Constitutional Vitals: Temp Pulse Resp BP Pulse Ox 100.7 F H 93 H 25 H 135/81 100 10/15/20 04:00 10/15/20 07:38 10/15/20 07:38 10/15/20 07:35 10/15/20 07:35 General appearance: Present: severe distress, well-nourished HEART Score - HEART Score Age: < 45 Risk factors: 1-2 risk factors - Critical Actions Critical Actions: >7 pts:50-65% risk of adverse cardiac event. Early invasive measures Results - Labs CBC & Chem 7: 10/15/20 05:50 10/15/20 05:50 Labs: Laboratory Last Values WBC 23.2 K/mm3 (4.5-11.0) H 10/15/20 05:50 RBC 3.43 M/mm3 (3.65-5.03) L 10/15/20 05:50 Hgb 9.9 gm/dl (10.1-14.3) L 10/15/20 05:50 Hct 30.0 % (30.3-42.9) L 10/15/20 05:50 MCV 87 fl (79-97) 10/15/20 05:50 MCH 29 pg (28-32) 10/15/20 05:50 MCHC 33 % (30-34) 10/15/20 05:50 RDW 18.2 % (13.2-15.2) H 10/15/20 05:50 Plt Count 350 K/mm3 (140-440) 10/15/20 05:50 Lymph % (Auto) 6.3 % (13.4-35.0) L 10/11/20 04:00 [place] % (Auto) 5.4 % (0.0-7.3) 10/11/20 04:00 Eos % (Auto) 0.9 % (0.0-4.3) 10/11/20 04:00 Baso % (Auto) 0.3 % (0.0-1.8) 10/11/20 04:00 Lymph # (Auto) 1.7 K/mm3 (1.2-5.4) 10/11/20 04:00 [place] # (Auto) 1.5 K/mm3 (0.0-0.8) H 10/11/20 04:00 Eos # (Auto) 0.3 K/mm3 (0.0-0.4) 10/11/20 04:00 Baso # (Auto) 0.1 K/mm3 (0.0-0.1) 10/11/20 04:00 Add Manual Diff Complete 10/15/20 05:50 Total Counted 100 10/15/20 05:50 Seg Neutrophils % 87.1 % (40.0-70.0) H 10/11/20 04:00 Seg Neuts % (Manual) 90.0 % (40.0-70.0) H 10/15/20 05:50 Band Neutrophils % 2.0 % 10/15/20 05:50 Lymphocytes % (Manual) 4.0 % (13.4-35.0) L 10/15/20 05:50 Reactive Lymphs % (Man) 1.0 % 10/02/20 12:18 Monocytes % (Manual) 4.0 % (0.0-7.3) 10/15/20 05:50 Eosinophils % (Manual) 1.0 % (0.0-4.3) 10/14/20 04:00 Myelocytes % 2.0 % 10/02/20 13:05 Metamyelocytes % 1.0 % 10/14/20 04:00 Nucleated RBC % Not Reportable 10/15/20 05:50 Seg Neutrophils # 23.5 K/mm3 (1.8-7.7) H 10/11/20 04:00 Seg Neutrophils # Man 20.9 K/mm3 (1.8-7.7) H 10/15/20 05:50 Band Neutrophils # 0.5 K/mm3 10/15/20 05:50 Lymphocytes # (Manual) 0.9 K/mm3 (1.2-5.4) L 10/15/20 05:50 Abs React Lymphs (Man) 0.0 K/mm3 10/15/20 05:50 Monocytes # (Manual) 0.9 K/mm3 (0.0-0.8) H 10/15/20 05:50 Eosinophils # (Manual) 0.0 K/mm3 (0.0-0.4) 10/15/20 05:50 Basophils # (Manual) 0.0 K/mm3 (0.0-0.1) 10/15/20 05:50 Metamyelocytes # 0.0 K/mm3 10/15/20 05:50 Myelocytes # 0.0 K/mm3 10/15/20 05:50 Promyelocytes # 0.0 K/mm3 10/15/20 05:50 Blast Cells # 0.0 K/mm3 10/15/20 05:50 WBC Morphology Not Reportable 10/15/20 05:50 Hypersegmented Neuts Not Reportable 10/15/20 05:50 Hyposegmented Neuts Not Reportable 10/15/20 05:50 Hypogranular Neuts Not Reportable 10/15/20 05:50 Smudge Cells Not Reportable 10/15/20 05:50 Toxic Granulation Not Reportable 10/15/20 05:50 Toxic Vacuolation Not Reportable 10/15/20 05:50 Dohle Bodies Not Reportable 10/15/20 05:50 Pelger-Huet Anomaly Not Reportable 10/15/20 05:50 Ester Rods Not Reportable 10/15/20 05:50 Platelet Estimate Consistent w auto 10/15/20 05:50 Clumped Platelets Not Reportable 10/15/20 05:50 Plt Clumps, EDTA Not Reportable 10/15/20 05:50 Large Platelets Not Reportable 10/15/20 05:50 Giant Platelets Not Reportable 10/15/20 05:50 Platelet Satelliting Not Reportable 10/15/20 05:50 Plt Morphology Comment Not Reportable 10/15/20 05:50 RBC Morphology Not Reportable 10/15/20 05:50 Dimorphic RBCs Not Reportable 10/15/20 05:50 Polychromasia Not Reportable 10/15/20 05:50 Hypochromasia Few 10/15/20 05:50 Poikilocytosis Not Reportable 10/15/20 05:50 Anisocytosis 1+ 10/15/20 05:50 Microcytosis Not Reportable 10/15/20 05:50 Macrocytosis Not Reportable 10/15/20 05:50 Spherocytes Not Reportable 10/15/20 05:50 Pappenheimer Bodies Not Reportable 10/15/20 05:50 Sickle Cells Not Reportable 10/15/20 05:50 Target Cells Not Reportable 10/15/20 05:50 Tear Drop Cells Not Reportable 10/15/20 05:50 Ovalocytes Not Reportable 10/15/20 05:50 Stomatocytes Few 10/14/20 04:00 Helmet Cells Not Reportable 10/15/20 05:50 Burk-Volta Bodies Not Reportable 10/15/20 05:50 Kingman Rings Not Reportable 10/15/20 05:50 Durham Cells Not Reportable 10/15/20 05:50 Bite Cells Not Reportable 10/15/20 05:50 Crenated Cell Not Reportable 10/15/20 05:50 Elliptocytes Not Reportable 10/15/20 05:50 Acanthocytes (Spur) Not Reportable 10/15/20 05:50 Rouleaux Not Reportable 10/15/20 05:50 Hemoglobin C Crystals Not Reportable 10/15/20 05:50 Schistocytes Not Reportable 10/15/20 05:50 Malaria parasites Not Reportable 10/15/20 05:50 Sharad Bodies Not Reportable 10/15/20 05:50 Hem Pathologist Commnt No 10/15/20 05:50 PT 13.0 Sec. (12.2-14.9) 10/05/20 05:00 INR 1.00 (0.87-1.13) 10/05/20 05:00 APTT 31.6 Sec. (24.2-36.6) 10/03/20 00:40 Fibrinogen 336 mg/dl (211-480) 10/04/20 10:00 D-Dimer > 73752 ng/mlDDU (0-234) H 10/04/20 10:00 ABG pH 7.473 (7.320-7.450) H 10/13/20 07:18 POC ABG pCO2 20.7 mmHg (32.0-48.0) L 10/13/20 07:18 ABG pCO2 25.0 mm Hg 10/10/20 04:42 POC ABG pO2 137.9 mmHg (83-108) H 10/13/20 07:18 ABG pO2 95.2 mm Hg (80.0-90.0) H 10/10/20 04:42 POC ABG HCO3 14.8 10/13/20 07:18 ABG HCO3 20.6 mmol/L (20.0-26.0) 10/10/20 04:42 ABG O2 Saturation 97.9 % (95.0-99.0) 10/10/20 04:42 ABG O2 Content 15.4 (0.0-44) 10/10/20 04:42 POC ABG Base Excess -6.9 10/13/20 07:18 ABG Base Excess -0.8 mmol/L (-2.0-3.0) 10/10/20 04:42 ABG Hemoglobin 11.2 (12.0-17.5) L 10/13/20 07:18 ABG Oxyhemoglobin 98.3 (94-98) H 10/13/20 07:18 ABG Carboxyhemoglobin 1.4 % (0.0-5.0) 10/10/20 04:42 ABG Methemoglobin 0.3 (0.0-1.5) 10/13/20 07:18 ABG Sodium 135.9 mmol/L (136.0-145.0) L 10/13/20 07:18 ABG Potassium 3.7 mmol/L (3.40-4.50) 10/13/20 07:18 ABG Chloride 111.0 mmol/L (98-107) H 10/13/20 07:18 ABG Glucose 109 mg/dL (65-95) H 10/13/20 07:18 VBG pH 6.949 (7.320-7.420) L* 10/02/20 Unknown Oxyhemoglobin 95.9 % (95.0-99.0) 10/10/20 04:42 Carboxyhemoglobin 0.3 (0.5-1.5) L 10/13/20 07:18 FiO2 30.0 10/13/20 07:18 Sodium 139 mmol/L (137-145) 10/15/20 05:50 Potassium 3.6 mmol/L (3.6-5.0) 10/15/20 05:50 Chloride 110.3 mmol/L (98-107) H 10/15/20 05:50 Carbon Dioxide 18 mmol/L (22-30) L 10/15/20 05:50 Anion Gap 14 mmol/L 10/15/20 05:50 BUN 12 mg/dL (7-17) 10/15/20 05:50 Creatinine 0.6 mg/dL (0.6-1.2) 10/15/20 05:50 Estimated GFR > 60 ml/min 10/15/20 05:50 BUN/Creatinine Ratio 20 % 10/15/20 05:50 Glucose 105 mg/dL (65-100) H 10/15/20 05:50 POC Glucose 95 mg/dL (70-105) 10/15/20 05:35 Lactic Acid 1.90 mmol/L (0.7-2.0) 10/04/20 22:00 Uric Acid 7.5 mg/dL (3.5-7.6) 10/02/20 13:05 Calcium 8.3 mg/dL (8.4-10.2) L 10/15/20 05:50 Ionized Calcium 4.4 mg/dL (4.8-5.6) L 10/07/20 21:00 Phosphorus 3.40 mg/dL (2.5-4.5) D 10/11/20 04:00 Magnesium 1.60 mg/dL (1.7-2.3) L 10/13/20 07:00 Total Bilirubin 0.90 mg/dL (0.1-1.2) 10/10/20 04:00 AST 122 units/L (5-40) H 10/10/20 04:00 ALT 81 units/L (7-56) H 10/10/20 04:00 Alkaline Phosphatase 94 units/L (35-129) 10/10/20 04:00 Lactate Dehydrogenase 769 units/L (91-180) H 10/02/20 13:05 NT-Pro-B Natriuret Pep 2788 pg/mL (0-450) H 10/04/20 10:00 Total Protein 5.2 g/dL (6.3-8.2) L 10/10/20 04:00 Albumin 2.7 g/dL (3.9-5) L 10/10/20 04:00 Albumin/Globulin Ratio 1.1 % 10/10/20 04:00 Procalcitonin 0.58 ng/mL (<0.15) 10/11/20 15:33 Arterial Blood Glucose 109 mg/dL (65-95) H 10/13/20 07:18 Arterial Blood Ionized Calcium 4.6 mg/dL (4.6-5.3) 10/13/20 07:18 Urine Color Yellow (Yellow) 10/11/20 13:26 Urine Turbidity Clear (Clear) 10/11/20 13:26 Urine pH 7.0 (5.0-7.0) 10/11/20 13:26 Ur Specific [place] 1.014 (1.003-1.030) 10/11/20 13:26 Urine Protein 100 mg/dl mg/dL (Negative) 10/11/20 13:26 Urine Glucose (UA) Neg mg/dL (Negative) 10/11/20 13:26 Urine Ketones Neg mg/dL (Negative) 10/11/20 13:26 Urine Blood Mod (Negative) 10/11/20 13:26 Urine Nitrite Neg (Negative) 10/11/20 13:26 Urine Bilirubin Neg (Negative) 10/11/20 13:26 Urine Urobilinogen < 2.0 mg/dL (<2.0) 10/11/20 13:26 Ur Leukocyte Esterase Sm (Negative) 10/11/20 13:26 Urine WBC (Auto) 24.0 /HPF (0.0-6.0) H 10/11/20 13:26 Urine RBC (Auto) 59.0 /HPF (0.0-6.0) 10/11/20 13:26 Urine Bacteria (Auto) 1+ /HPF (Negative) 10/11/20 13:26 Urine Mucus Few /HPF 10/11/20 13:26 Phenytoin 5.7 ug/mL (10.0-20.0) L 10/13/20 07:00 Coronavirus (PCR) Negative (Negative) 10/08/20 14:15 Blood Type O POSITIVE 10/02/20 12:50 Antibody Screen Negative 10/02/20 12:50 Crossmatch See Detail 10/02/20 12:50 Microbiology: Microbiology 10/14/20 14:57 Peripheral/Venous Blood Culture - Preliminary 10/14/20 14:57 Peripheral/Venous Blood Culture - Preliminary 10/11/20 15:33 Peripheral/Venous Blood Culture - Preliminary NO GROWTH AFTER 72 HOURS 10/11/20 15:33 Peripheral/Venous Blood Culture - Preliminary NO GROWTH AFTER 72 HOURS 10/11/20 15:50 Tracheal Aspirate Sputum Culture - Final 10/11/20 13:26 Urine,Clean Catch Urine Culture - Final NO GROWTH AFTER 48 HOURS - Diagnostic Impressions Diagnostic Impressions: Echocardiogram 10/03/20 13:42 Transthoracic Echocardiogram Indication: S/P Cardiac Arrest R/O Cardiomyopathy BP: 133/71 Conclusions *Global left ventricular systolic function is normal. *The estimated ejection fraction is 60-65%. *There is trace of mitral regurgitation. *The right 0heart chambers are both slightly dilated. *There is mild tricuspid regurgitation. *There is mild-moderate pulmonary hypertension. *The right ventricular systolic pressure is calculated at 44 mmHg. *The study quality is technically difficult. Findings Procedure Info: The study quality is technically difficult. The study is technically limited due to patient body habitus. The study was technically limited due to the patient's inability to lay in the left lateral decubitus position. Left Ventricle: The left ventricular chamber size is normal. There is no left ventricular hypertrophy. Global left ventricular systolic function is normal. The estimated ejection fraction is 60-65%. Left Atrium: The left atrial chamber size is normal. Right Ventricle: The right ventricle is slightly dilated. Right Atrium: The right atrium is mildly dilated. Aortic Valve: The aortic valve leaflets are mildly thickened. There is no evidence of aortic regurgitation. There is no evidence of aortic stenosis. Mitral Valve: The mitral valve leaflets are mildly thickened. There is trace of mitral regurgitation. There is no evidence of mitral stenosis. Tricuspid Valve: There is mild tricuspid regurgitation. The right ventricular systolic pressure is calculated at 44 mmHg. There is evidence of mild pulmonary hypertension. Pulmonic Valve: There is trace pulmonic regurgitation. Pericardium: There is no pericardial effusion. Aorta: There is no dilatation of the ascending aorta. There is no dilatation of the aortic root. Venous: The inferior vena cava is dilated. Measurements Chambers 2D Name Value Normal Range IVSd (2D) 1 cm (0.6 - 1.1) LVPWd (2D) 1.01 cm (0.6 - 1.1) LVIDd (2D) 4.58 cm (3.7 - 5.6) LVIDs (2D) 3.17 cm (2 - 3.8) LV FS (2D) 30.93 % - EF Teichholz (2D) 58.66 % - Ao root diameter (2D) 2.94 cm (2 - 3.7) Volumes/Mass Name Value Normal Range LA ESV SP 4CH (A/L) 72.82 ml - LA ESV SP 2CH (A/L) 66.86 ml - LA ESV BP (A/L) 74.49 ml - LA ESV SP 4CH (MOD) 71.03 ml - LA ESV SP 2CH (MOD) 64.3 ml - LV EDV SP 4CH (MOD) 98.82 ml - LV ESV SP 4CH (MOD) 24.8 ml - EF SP 4CH (MOD) 74.9 % - LV EDV SP 2CH (MOD) 86.1 ml - LV ESV SP 2CH (MOD) 36.93 ml - EF SP 2CH (MOD) 57.11 % - LV EDV BP 94.4 ml - LV ESV BP 32.66 ml - BP EF (MOD) 65.4 % - Diastolic/Systolic Function Name Value Normal Range MV E-wave Vmax 1.04 m/sec - MV deceleration time 160.46 msec - MV A-wave Vmax 0.92 m/sec - MV E:A ratio 1.14 ratio - Aortic Valve Name Value Normal Range AV Vmax 2.12 m/sec - AV VTI 22.37 cm - AV peak gradient 17.95 mmHg - AV mean gradient 7.29 mmHg - LVOT diameter 2.01 cm - LVOT Vmax 1.8 m/sec - LVOT VTI 27.17 cm - LVOT peak gradient 12.91 mmHg - LVOT mean gradient 6.83 mmHg - SV LVOT 86.42 ml - ANITA (continuity Vmax) 2.7 cm2 - ANITA (continuity VTI) 3.86 cm2 - Ascending Ao 3.18 cm - Tricuspid Valve Name Value Normal Range TV E-wave Vmax 0.88 m/sec - TR Vmax 3.01 m/sec - TR peak gradient 36.27 mmHg - RAP 8 mmHg - RVSP 44 mmHg - IVC diameter 2.65 cm (1.2 - 2.3) Pulmonic Valve/Qp:Qs Name Value Normal Range PV Vmax 1.22 m/sec - PV peak gradient 5.91 mmHg - RVOT Vmax 0.87 m/sec - RVOT VTI 13.32 cm - RVOT peak gradient 3 mmHg - PV acceleration time 110.37 msec - [place]/IV: Voiding Method Indwelling Catheter IV Catheter Type [Right Upper PICC Line arm] IV Catheter Type [Left Triple Lumen Cath Internal Jugular] IV Catheter Type [Left Hand] Peripheral IV IV Catheter Type [Left Peripheral IV Antecubital] Active Medications - Current Medications Current Medications: Generic Name Dose Route Start Last Admin Trade Name Freq PRN Reason Stop Dose Admin Acetaminophen 650 mg 10/05/20 16:34 10/14/20 11:37 Acetaminophen 325 Mg/10.15 Ml Oral Liqd Unit Dose FEEDTUBE 650 mg Q6H PRN Administration Non Cardiac Pain or Temp>100.5 Albuterol/Ipratropium 1 ampul 10/10/20 20:00 10/15/20 07:38 Ipratropium/Albuterol Sulfate 3 Ml Ampul.Neb IH 1 ampul Q8HRT ERINN Administration Lipase/Protease/Amylase 1 each 10/05/20 11:09 Lipase 10,500/Protease 25,000/Amylase 43,750 (Units) Dr Barakat FEEDTUBE PRN PRN For Clogged Feeding Tube Buspirone HCl 10 mg 10/10/20 10:00 10/14/20 22:15 Buspirone 10 Mg Tab PO 10 mg BID ERINN Administration Buspirone HCl 5 mg 10/10/20 10:00 10/14/20 22:15 Buspirone 5 Mg Tab PO 5 mg BID ERINN Administration Famotidine 20 mg 10/07/20 10:00 10/14/20 21:46 Famotidine 20 Mg Tab PO 20 mg BID ERINN Administration Fentanyl 50 mcg 10/10/20 19:54 10/14/20 03:20 Fentanyl 100 Mcg/2 Ml Inj IV 50 mcg Q3HR PRN Administration Labored breathing Hydralazine HCl 20 mg 10/07/20 11:49 10/14/20 14:10 Hydralazine 20 Mg/1 Ml Inj IV 20 mg Q6H PRN Administration SBP >170 Hydrophilic Ointment 1 applic 10/04/20 06:55 Lip Therapy Vaseline TP Q2HR PRN Dry Lips Dexmedetomidine HCl 1,000 mcg/ 260 mls @ 7.249 mls/hr 10/13/20 05:00 10/15/20 06:29 Sodium Chloride IV 1.4 mcg/kg/hr TITRATE ERINN 50.742 mls/hr Administration Protocol 0.2 MCG/KG/HR Dextrose 1,000 mls @ 75 mls/hr 10/13/20 11:00 10/14/20 16:06 D10w IV 75 mls/hr DIRECT ERINN Administration Cefepime HCl 2 gm in 100 mls @ 200 mls/hr 10/14/20 22:00 10/14/20 21:46 Cefepime/Ns 2 Gm/100 Ml IV 200 mls/hr Q12HR ERINN Administration Protocol Metronidazole 500 mg in 100 mls @ 100 mls/hr 10/14/20 13:00 10/15/20 06:02 Flagyl 500 Mg/100 Ml IV 100 mls/hr Q8H ERINN Administration Protocol Vancomycin HCl 1,750 mg/ 535 mls @ 333.333 mls/hr 10/15/20 02:00 10/15/20 03:07 Sodium Chloride IV 333.333 mls/hr Q12H ERINN Administration Insulin Human Regular 0 unit 10/12/20 13:00 10/15/20 06:03 Insulin Regular, Human 100 Unit/Ml 3ml Vial SUB-Q Not Given Q4H ERINN Protocol Labetalol HCl 100 mg 10/07/20 14:00 10/14/20 21:46 Labetalol 100 Mg Tab PO 100 mg TID ERINN Administration Lorazepam 2 mg 10/02/20 22:05 10/10/20 16:56 Lorazepam 2 Mg/Ml Vial IV 2 mg Q2H PRN Administration Seizures Multi-Ingred Cream/Lotion/Oil/Oint 1 applic 10/04/20 06:55 Mineral Oil/Petrolatum, White Ophth Oint 3.5 Gm OU Q4HR PRN Dry Eye(s) Simple Syrup 15 ml 10/05/20 11:09 Simple Syrup 15 Ml FEEDTUBE PRN PRN Hypoglycemia Simple Syrup 30 ml 10/05/20 11:09 Simple Syrup 15 Ml FEEDTUBE PRN PRN Hypoglycemia Sodium Bicarbonate 325 mg 10/05/20 11:09 Sodium Bicarbonate 325 Mg Tab FEEDTUBE PRN PRN For Clogged Feeding Tube Sodium Bicarbonate 1,300 mg 10/13/20 14:00 10/14/20 22:16 Sodium Bicarbonate 650 Mg Tab PO 1,300 mg TID ERINN Administration Topiramate 50 mg 10/05/20 11:00 10/15/20 00:45 Topiramate Tab 25 Mg Tab PO 50 mg Q12HR ERINN Administration Vancomycin HCl 125 mg 10/11/20 14:00 10/15/20 03:07 Vancomycin 250 Mg/10 Ml Oral Liqd PO 10/18/20 20:01 125 mg Q6H ERINN Administration Protocol Nutrition/Malnutrition Assess - Dietary Evaluation Nutrition/Malnutrition Findings: Nutrition Notes Start: 10/04/20 11:13 Freq: Status: Active Protocol: Document 10/15/20 08:34 (Rec: 10/15/20 08:39 [id number]) Nutrition Notes Initial or Follow up Reassessment Current Diagnosis Acute Kidney Injury, Respiratory Failure Other Pertinent Diagnosis Cardiac arrest, s/p c-sectuion and supracervial hysterectomy Current Diet Vital AF 1.2 at 65ml/hr Labs/Tests Reviewed Pertinent Medications Reviewed Height 5 ft 8 in Weight 118 kg [place] Body Weight (kg) 63.63 BMI 39.5 Weight change and time frame Wt change noted Weight Status Morbidly Obese Subjective/Other Information FU for TF tolerance. Observed TF running at goal rate and per RN pt is tolerating. Percent of energy/protein needs met: 100%/74% Burn Absent Trauma Absent GI Symptoms None Food Allergy Yes Current % PO Negligible Minimum of two criteria No Fluid Accumulation Mild (non-severe) #1 Nutrition Diagnosis Inadequate oral intake Diagnosis Progress(for reassessment Continues documentation) Is patient on ventilator? Yes Is Patient Ambulatory and/or Out of Bed No REE-([facility]-confined to bed) 2327.856 Kcal/Kg value to use for calculation 15 Approximate Energy Requirements Using 1770 kcal/Kg Calculation Used for Recommendations Kcal/kg Additional Notes Protein needs are up to 159g ( up to 2.5g/kg) Fluid needs are 1ml/kcal Nutrition Intervention Change Diet Order: Continue TF Nutrition Support: Vital AF 1.2 at 65 ml/hr. Flush with 100 ml q4h Kcal 1,872 Protein (gm) 117 Fluid (mL) 1,265 Goal #1 Meet at least 75% of energy and protein needs via TF Anticipated Discharge Needs: Unable to determine at this time Follow-Up By: 10/22/20 Additional Comments FU for TF tolerance
[2020-10-15] MEDS: SODIUM BICARBONATE 650 MG TAB PO SCH ×3 (08:50→19:53)
[2020-10-15] MEDS: fentaNYL 100 MCG/2 ML INJ IV PRN (09:25)
[2020-10-15] MEDS: CEFEPIME/NS 2 GM/100 ML 2 GM/100 ML BAG IV SCH ×2 (09:26→21:30)
[2020-10-15] MEDS: FAMOTIDINE 20 MG TAB PO SCH ×2 (09:27→21:30)
[2020-10-15] MEDS: busPIRone 5 MG TAB PO SCH ×2 (09:27→21:30)
[2020-10-15] MEDS: busPIRone 10 MG TAB PO SCH ×2 (09:36→21:30)
--- NOTE | 2020-10-15 10:20 | Progress Note ---
Assessment and Plan Cultures: 10/05/2020 Blood culture: no growth 10/11/2020 blood culture: No growth 10/11/2020 tracheal aspirate: Usual respiratory jaylan 10/14/2020 blood culture: GNR, GPC A/P: 30-year-old female with GERD, hypertension, seizure disorder was admitted to the hospital at 36 weeks with seizures. She became hypoxic and pulseless requiring CPR. Following emergent section, patient developed hemorrhage, DIC. She has been admitted to ICU, remains on the vent: #Persistent fever, sepsis is likely secondary to bacteremia: ?PICC v/s intra-ab dominal source. #Status post arrest 10/07/2020: Apparently had a brief code due to ?ET tube clot/plugging. #Initial shock, DIC/persistent fever: Secondary to hemorrhage, ?possible sepsis. Possible pneumonia versus fluid overload. ?Central fever v/s from VTE. Noted diarrhea ? Cdiff #Acute kidney injury: resolved #Acute respiratory failure: remains on the vent. #Transaminitis: ?HELLP. Improving. #Preeclampsia # hemorrhage: Status post , status post supracervical hysterectomy. #Encephalopathy post cardiac arrest: Neurology on board. Recs: -Follow-up CT abdomen, pelvis with IV contrast -Remove PICC line -Repeat blood cultures ordered -Continue empiric Cefepime, Flagyl and IV vancomycin -C. difficile is unlikely, especially now that we have a source of infection, p.o. vancomycin discontinued Venancio Craven MD, FACP [facility] ([facility]) O: [phone] F: [phone] Subjective Date of service: 10/15/20 Principal diagnosis: Eclampsia/HELLP Syndrome, ADOLPH, DIC; s/p , s/p supracervical hyst Interval history: Remains on the vent. low grade fever +, opens eyes, doesn't follow commands. Objective - Exam Narrative Exam: Physical Exam: Constitutional: awake, intubated, on the vent Head, Ears, Nose: Normocephalic, atraumatic. External ears, nose normal Eyes: Conjunctivae/corneas clear. No icterus. No ptosis. Neck: intubated Oral: intubated Cardiovascular: S1, S2 + Respiratory: AE fair bilaterally and equal GI: Soft, bowel sounds +. lower abdominal incision present with dressing Musculoskeletal: edematous extremities, no cyanosis. Skin: No rash or abscess Hem/Lymphatic: No palpable cervical or supraclavicular nodes. No lymphangitis Psych: no agitation Neurological: awake, doesn't follow commands, but opens eyes, intubated, on the vent, exam limited - Constitutional Vitals: Vital Signs Temp Pulse Resp BP Pulse Ox 100.7 F H 89 25 H 146/83 100 10/15/20 04:00 10/15/20 08:49 10/15/20 07:38 10/15/20 08:49 10/15/20 07:35 Temperature -Last 24 Hours Temperature 100.7 F Temperature 98.7 F Temperature 98.8 F Temperature 99.8 F Temperature 99.8 F Temperature 101.1 F Temperature 101.1 F - Labs CBC & Chem 7: 10/15/20 05:50 10/15/20 05:50 Labs: Abnormal lab results 10/15/20 10/15/20 Range/Units 05:50 05:50 WBC 23.2 H (4.5-11.0) K/mm3 RBC 3.43 L (3.65-5.03) M/mm3 Hgb 9.9 L (10.1-14.3) gm/dl Hct 30.0 L (30.3-42.9) % RDW 18.2 H (13.2-15.2) % Seg Neuts % (Manual) 90.0 H (40.0-70.0) % Lymphocytes % (Manual) 4.0 L (13.4-35.0) % Seg Neutrophils # Man 20.9 H (1.8-7.7) K/mm3 Lymphocytes # (Manual) 0.9 L (1.2-5.4) K/mm3 Monocytes # (Manual) 0.9 H (0.0-0.8) K/mm3 Chloride 110.3 H (98-107) mmol/L Carbon Dioxide 18 L (22-30) mmol/L Glucose 105 H (65-100) mg/dL Calcium 8.3 L (8.4-10.2) mg/dL
--- NOTE | 2020-10-15 11:46 | Progress Note ---
Assessment and Plan 30 y/o female with Eclampsia, s/p emergent section with DIC, acute respiratory failure and worsening renal function. 10/15/2020: MRI and CT's today. Continue Precedex and PRN fent pushes. ID ordered C. Diff test. Continue D10 and tube feeds. Continue vent support. Suspect patient will need trach and peg. 10/14/2020: Await MRI. Continue Precedex and only use PRN fent pushes. CM states that there is a . Now with persistent fever, will obtain CT abdomen pelvis with contrast to see if source for fevers can be found. Continue D10 as sugars are still not elevated. 10/12/2020: Patient seen on 10/12 but note entered late. Formal neurology consult today. Hold all sedation if possible and only use precedex. CM to find out if there is truly a or if the decisions would fall on mother as I do not know the ages of her children but I don't think they are of age to make decisions. Guarded prognosis given mental state. 10/08/2020: Will start patient on precedex today. Plan is to wean off fent drip. Will increase buspar to BID. Need to see patient on as little sedation as possible to determine neurological status. EEG has still not been read. Mag stopped yesterday. Largest concern now is neurologic function. 10/07/2020: Head CT unremarkable. Await EEG to be read. Will stop mag Drip. If seizures occur then will load with Keppra and start BID dosing of this. Appreciate OB note. Continue D10 as sugars are still not severely elevated until feeds are at goal. PRN ativan present as well. Will add dilaudid for pain control. Increased BB to TID and added PRN hydralazine 10/06/2020: Stat Head CT today. Likely needs EEG. Will order. Continue Mag drip and follow up levels. Continue feeds. Continue to wean FiO2 as tolerated. Hold sedatives but can give PRN ativan as needed for seizure activity. Continue D10 as Tube feeds are not at goal yet. Guarded prognosis with mental state. 10/05/2020: Feed today. Stop Albumin and Abx. Will stop D10 once feeds start but will continue q2 hour FSBS until 3 consecutive >180. H/H stable. Will continue to aggressively wean FiO2. Patient has a 6.5 tube that will likely impede PSV trials given her size so will attempt to change out. Also will restart her home meds for anxiety and chronic migraine therapy. Prognosis is still guarded but promising given her hemodynamic stability. Continue chowdhury for accurate urine out put. 10/04/2020: Much improved today. Still very ill however. Down to just one pressor. Still with good urine output. Await chemistry results from this am. Likely can stop Bicarb drip given improvement in pH but would like to see bicarb on blood work. Agree with continued transfusion of blood products. Needs fibrinongen levels as well as repeat coags. I cannot see the standing orders on my screen so will call down to lab and let them know what's needed. I know she has had at leas 2 cryo's but I am not exactly sure if the count is accurate in the computer in regards to PRBC's and FFP's. Platelets lower this am but still greater than 30K. Continue chowdhury for I/O measurement. Will start to wean FiO2 on vent. CXR looks like edema but oxygenation is stable right now. Resuscitation is the most important thing right now. Will continue abx therapy at least 24 more hours. Prognosis is still very guarded but patient showing signs of improvement. 1. CV-Extremely volume deplete as well as intrasvascular depletion. Will continue to bolus with LR and saline as needed. Will add Albumin to help with intravascular volume. Spoke with OB attending over phone yesterday. No acute indication for steroids at this time. Serial H/H's given maximum pressor requirements. Will transfuse to keep up with AVINASH drain and help with weaning. Severely acidotic but improving. Likely adding to pressor requirement. GOAL is map of 65 and will wean accordingly. Will start to wean Sohail first. Ordered art line as well. 2. Heme-DIC secondary to Eclampsia, possible sepsis but white count could be stress related. Will continue to transfuse PRBC's and FFP with Cryo as needed. Follow Fibrinogen levels. Tele Heme has been consulted and note reviewed. Will give one cryo for every 6 units of PRBC's transfused. has gotten one cryo, awaiting the other to thaw out. Plts at 72K right now. Hold on further transfusion. May need to consider Factor VII if execessive bleeding continues. Will also put on broad spec abx therapy incase of possible sepsis causing DIC. Hopeful with correction of coaguloapthy she will improve. 3. Very very guarded prognosis. Will continue aggressive resuscitation. Family to come visit given exceptional case and extremely guarded prognosis. CCT 31 minutes. Subjective Date of service: 10/15/20 Principal diagnosis: Eclampsia/HELLP Syndrome, ADOLPH, DIC; s/p , s/p supracervical hyst Interval history: No acute events. off floor for MRI and CT of abdomen and pelvis. Continues to have fever. Objective Vital Signs - 12hr 10/14/20 10/14/20 10/15/20 23:43 23:45 00:00 Temperature 98.7 F Pulse Rate 95 H 96 H 99 H Pulse Rate [ Anterior Bilateral Throughout] Pulse Rate [ 92 H From Monitor] Respiratory 21 18 21 Rate Respiratory Rate [Anterior Bilateral Throughout] Blood Pressure 147/97 157/97 154/94 O2 Sat by Pulse 99 96 99 Oximetry 10/15/20 10/15/20 10/15/20 00:14 00:15 00:16 Temperature Pulse Rate 99 H 92 H Pulse Rate [ 96 H Anterior Bilateral Throughout] Pulse Rate [ From Monitor] Respiratory 22 Rate Respiratory 26 H Rate [Anterior Bilateral Throughout] Blood Pressure 154/94 154/86 O2 Sat by Pulse 99 98 Oximetry 10/15/20 10/15/20 10/15/20 00:30 00:45 01:00 Temperature Pulse Rate 91 H 101 H 101 H Pulse Rate [ Anterior Bilateral Throughout] Pulse Rate [ From Monitor] Respiratory 17 25 H 21 Rate Respiratory Rate [Anterior Bilateral Throughout] Blood Pressure 152/86 160/90 153/84 O2 Sat by Pulse 96 97 97 Oximetry 10/15/20 10/15/20 10/15/20 01:15 01:30 01:45 Temperature Pulse Rate 101 H 102 H 103 H Pulse Rate [ Anterior Bilateral Throughout] Pulse Rate [ From Monitor] Respiratory 29 H 29 H 31 H Rate Respiratory Rate [Anterior Bilateral Throughout] Blood Pressure 168/101 168/98 174/107 O2 Sat by Pulse 97 98 97 Oximetry 10/15/20 10/15/20 10/15/20 02:00 02:15 02:30 Temperature Pulse Rate 92 H 99 H 99 H Pulse Rate [ Anterior Bilateral Throughout] Pulse Rate [ From Monitor] Respiratory 20 27 H 31 H Rate Respiratory Rate [Anterior Bilateral Throughout] Blood Pressure 146/83 139/80 163/98 O2 Sat by Pulse 97 97 96 Oximetry 10/15/20 10/15/20 10/15/20 02:45 03:00 03:15 Temperature Pulse Rate 91 H 97 H 98 H Pulse Rate [ Anterior Bilateral Throughout] Pulse Rate [ From Monitor] Respiratory 16 19 22 Rate Respiratory Rate [Anterior Bilateral Throughout] Blood Pressure 150/78 153/81 152/86 O2 Sat by Pulse 95 94 95 Oximetry 10/15/20 10/15/20 10/15/20 03:30 03:45 04:00 Temperature 100.7 F H Pulse Rate 98 H 97 H 88 Pulse Rate [ Anterior Bilateral Throughout] Pulse Rate [ 87 From Monitor] Respiratory 23 22 15 Rate Respiratory Rate [Anterior Bilateral Throughout] Blood Pressure 157/94 147/89 144/85 O2 Sat by Pulse 99 96 96 Oximetry 10/15/20 10/15/20 10/15/20 04:15 04:25 04:30 Temperature Pulse Rate 88 89 87 Pulse Rate [ Anterior Bilateral Throughout] Pulse Rate [ From Monitor] Respiratory 19 16 Rate Respiratory Rate [Anterior Bilateral Throughout] Blood Pressure 150/84 150/84 140/84 O2 Sat by Pulse 97 99 95 Oximetry 10/15/20 10/15/20 10/15/20 04:45 05:00 05:15 Temperature Pulse Rate 97 H 88 90 Pulse Rate [ Anterior Bilateral Throughout] Pulse Rate [ From Monitor] Respiratory 22 17 16 Rate Respiratory Rate [Anterior Bilateral Throughout] Blood Pressure 157/92 157/70 139/67 O2 Sat by Pulse 98 96 99 Oximetry 10/15/20 10/15/20 10/15/20 05:30 05:45 06:00 Temperature Pulse Rate 88 85 87 Pulse Rate [ Anterior Bilateral Throughout] Pulse Rate [ From Monitor] Respiratory 17 20 21 Rate Respiratory Rate [Anterior Bilateral Throughout] Blood Pressure 130/77 137/73 137/74 O2 Sat by Pulse 96 96 96 Oximetry 10/15/20 10/15/20 10/15/20 06:15 06:30 06:45 Temperature Pulse Rate 89 86 94 H Pulse Rate [ Anterior Bilateral Throughout] Pulse Rate [ From Monitor] Respiratory 24 17 16 Rate Respiratory Rate [Anterior Bilateral Throughout] Blood Pressure 144/81 133/78 138/85 O2 Sat by Pulse 97 97 97 Oximetry 10/15/20 10/15/20 10/15/20 07:00 07:15 07:30 Temperature Pulse Rate 94 H 97 H 92 H Pulse Rate [ Anterior Bilateral Throughout] Pulse Rate [ From Monitor] Respiratory 22 22 18 Rate Respiratory Rate [Anterior Bilateral Throughout] Blood Pressure 136/82 137/83 135/81 O2 Sat by Pulse 100 96 100 Oximetry 10/15/20 10/15/20 10/15/20 07:35 07:38 07:45 Temperature Pulse Rate 92 H 97 H Pulse Rate [ 93 H Anterior Bilateral Throughout] Pulse Rate [ From Monitor] Respiratory 20 Rate Respiratory 25 H Rate [Anterior Bilateral Throughout] Blood Pressure 135/81 151/100 O2 Sat by Pulse 100 98 Oximetry 10/15/20 10/15/20 10/15/20 08:00 08:15 08:30 Temperature 99.4 F Pulse Rate 95 H 95 H 90 Pulse Rate [ Anterior Bilateral Throughout] Pulse Rate [ 95 H From Monitor] Respiratory 20 29 H 18 Rate Respiratory Rate [Anterior Bilateral Throughout] Blood Pressure 141/94 147/93 146/84 O2 Sat by Pulse 97 97 98 Oximetry 10/15/20 10/15/20 10/15/20 08:45 08:49 09:01 Temperature Pulse Rate 89 89 95 H Pulse Rate [ Anterior Bilateral Throughout] Pulse Rate [ From Monitor] Respiratory 19 31 H Rate Respiratory Rate [Anterior Bilateral Throughout] Blood Pressure 146/83 146/83 161/96 O2 Sat by Pulse 97 96 Oximetry 10/15/20 10/15/20 10/15/20 09:15 09:30 09:45 Temperature Pulse Rate 92 H 88 84 Pulse Rate [ Anterior Bilateral Throughout] Pulse Rate [ From Monitor] Respiratory 28 H 24 23 Rate Respiratory Rate [Anterior Bilateral Throughout] Blood Pressure 148/89 146/87 142/80 O2 Sat by Pulse 98 96 96 Oximetry 10/15/20 10/15/20 10:00 10:15 Temperature Pulse Rate 82 86 Pulse Rate [ Anterior Bilateral Throughout] Pulse Rate [ From Monitor] Respiratory 23 26 H Rate Respiratory Rate [Anterior Bilateral Throughout] Blood Pressure 143/86 146/83 O2 Sat by Pulse 98 98 Oximetry Constitutional: comatose, other (critically ill on ventilator) Eyes: non-icteric ENT: oropharynx moist, other (orally intubated and not sedated) Neck: other (large in cirumference) Effort: normal Ascultation: Bilateral: clear, diminished breath sounds, other (coarse BS bilaterally w/ mild faint wheezes) Percussion: Bilateral: not dull Cardiovascular: regular rate and rhythm, other (no mrg) Gastrointestinal: normoactive bowel sounds, soft, other (post surgical changes with drain on the left side) Extremities: no cyanosis, pink and warm, anasarca Neurologic: other (unresponsive, not following commands, not tracking) Psychiatric: other (unable to assess) CBC and BMP: 10/15/20 05:50 10/15/20 05:50 ABG, PT/INR, D-dimer: ABG ABG pH 7.473 (7.320-7.450) H 10/13/20 07:18 POC ABG pCO2 20.7 mmHg (32.0-48.0) L 10/13/20 07:18 ABG pCO2 25.0 mm Hg 10/10/20 04:42 POC ABG pO2 137.9 mmHg (83-108) H 10/13/20 07:18 ABG pO2 95.2 mm Hg (80.0-90.0) H 10/10/20 04:42 POC ABG HCO3 14.8 10/13/20 07:18 ABG O2 Saturation 97.9 % (95.0-99.0) 10/10/20 04:42 PT/INR, D-dimer PT 13.0 Sec. (12.2-14.9) 10/05/20 05:00 INR 1.00 (0.87-1.13) 10/05/20 05:00 D-Dimer > 32502 ng/mlDDU (0-234) H 10/04/20 10:00 Abnormal lab findings: Abnormal Labs 10/02/20 10/02/20 10/02/20 12:03 12:18 12:18 WBC 14.9 H RBC Hgb 9.1 L Hct MCV MCH 22 L MCHC 28 L RDW 17.6 H Plt Count 102 L Lymph % (Auto) [place] % (Auto) Lymph # (Auto) [place] # (Auto) Seg Neutrophils % Seg Neuts % (Manual) 36.0 L Lymphocytes % (Manual) 49.0 H Monocytes % (Manual) Nucleated RBC % 6.0 H Seg Neutrophils # Seg Neutrophils # Man Lymphocytes # (Manual) 7.3 H Monocytes # (Manual) PT INR APTT Fibrinogen D-Dimer ABG pH POC ABG pCO2 POC ABG pO2 ABG pO2 ABG HCO3 ABG Base Excess ABG Hemoglobin ABG Oxyhemoglobin ABG Sodium ABG Potassium ABG Chloride ABG Glucose VBG pH Oxyhemoglobin Carboxyhemoglobin Sodium 134 L Potassium Chloride Carbon Dioxide 12 L BUN 6 L Creatinine Glucose 390 H POC Glucose 451 H Lactic Acid Calcium Ionized Calcium Magnesium AST 135 H ALT 85 H Alkaline Phosphatase 172 H Lactate Dehydrogenase 641 H NT-Pro-B Natriuret Pep Total Protein 5.4 L Albumin 2.3 L Arterial Blood Glucose Arterial Blood Ionized Calcium Urine WBC (Auto) Phenytoin Crossmatch 10/02/20 10/02/20 10/02/20 12:50 13:05 13:05 WBC 38.6 H RBC Hgb 8.9 L Hct 29.0 L MCV 73 L MCH 22 L MCHC RDW 17.2 H Plt Count Lymph % (Auto) [place] % (Auto) Lymph # (Auto) [place] # (Auto) Seg Neutrophils % Seg Neuts % (Manual) Lymphocytes % (Manual) Monocytes % (Manual) Nucleated RBC % 2.0 H Seg Neutrophils # Seg Neutrophils # Man 20.1 H Lymphocytes # (Manual) 10.4 H Monocytes # (Manual) 2.3 H PT INR APTT Fibrinogen D-Dimer ABG pH POC ABG pCO2 POC ABG pO2 ABG pO2 ABG HCO3 ABG Base Excess ABG Hemoglobin ABG Oxyhemoglobin ABG Sodium ABG Potassium ABG Chloride ABG Glucose VBG pH Oxyhemoglobin Carboxyhemoglobin Sodium Potassium Chloride Carbon Dioxide BUN Creatinine Glucose POC Glucose Lactic Acid Calcium Ionized Calcium Magnesium AST 184 H ALT 113 H Alkaline Phosphatase Lactate Dehydrogenase 769 H NT-Pro-B Natriuret Pep Total Protein Albumin Arterial Blood Glucose Arterial Blood Ionized Calcium Urine WBC (Auto) Phenytoin Crossmatch See Detail 10/02/20 10/02/20 10/02/20 16:25 16:35 16:35 WBC RBC Hgb Hct MCV MCH MCHC RDW Plt Count Lymph % (Auto) [place] % (Auto) Lymph # (Auto) [place] # (Auto) Seg Neutrophils % Seg Neuts % (Manual) Lymphocytes % (Manual) Monocytes % (Manual) Nucleated RBC % Seg Neutrophils # Seg Neutrophils # Man Lymphocytes # (Manual) Monocytes # (Manual) PT INR APTT Fibrinogen D-Dimer ABG pH 7.031 L* POC ABG pCO2 POC ABG pO2 ABG pO2 116.8 H ABG HCO3 12.7 L ABG Base Excess -16.9 L ABG Hemoglobin 7.8 L ABG Oxyhemoglobin ABG Sodium ABG Potassium ABG Chloride ABG Glucose VBG pH Oxyhemoglobin 94.9 L Carboxyhemoglobin Sodium Potassium Chloride Carbon Dioxide BUN Creatinine Glucose 403 H POC Glucose Lactic Acid 11.40 H* Calcium 6.3 L D Ionized Calcium Magnesium AST 70 H ALT Alkaline Phosphatase Lactate Dehydrogenase NT-Pro-B Natriuret Pep Total Protein 1.9 L D Albumin 1.2 L Arterial Blood Glucose Arterial Blood Ionized Calcium Urine WBC (Auto) Phenytoin Crossmatch 10/02/20 10/02/20 10/02/20 18:18 18:18 22:30 WBC 11.5 H RBC 2.06 L Hgb 5.5 L* D Hct 17.3 L* D MCV MCH 27 L MCHC RDW 19.5 H Plt Count 60 L Lymph % (Auto) [place] % (Auto) Lymph # (Auto) [place] # (Auto) Seg Neutrophils % Seg Neuts % (Manual) Lymphocytes % (Manual) 8.0 L Monocytes % (Manual) 8.0 H Nucleated RBC % 8.0 H Seg Neutrophils # Seg Neutrophils # Man Lymphocytes # (Manual) 0.9 L Monocytes # (Manual) 0.9 H PT 37.1 H INR 3.71 H APTT 135.8 H* Fibrinogen D-Dimer ABG pH 7.067 L* POC ABG pCO2 POC ABG pO2 ABG pO2 183.0 H ABG HCO3 14.1 L ABG Base Excess -15.1 L ABG Hemoglobin 7.7 L ABG Oxyhemoglobin ABG Sodium ABG Potassium ABG Chloride ABG Glucose VBG pH Oxyhemoglobin Carboxyhemoglobin Sodium Potassium Chloride Carbon Dioxide BUN Creatinine Glucose POC Glucose Lactic Acid Calcium Ionized Calcium Magnesium AST ALT Alkaline Phosphatase Lactate Dehydrogenase NT-Pro-B Natriuret Pep Total Protein Albumin Arterial Blood Glucose Arterial Blood Ionized Calcium Urine WBC (Auto) Phenytoin Crossmatch 10/02/20 10/02/20 10/03/20 Unknown Unknown 00:01 WBC RBC Hgb Hct MCV MCH MCHC RDW Plt Count Lymph % (Auto) [place] % (Auto) Lymph # (Auto) [place] # (Auto) Seg Neutrophils % Seg Neuts % (Manual) Lymphocytes % (Manual) Monocytes % (Manual) Nucleated RBC % Seg Neutrophils # Seg Neutrophils # Man Lymphocytes # (Manual) Monocytes # (Manual) PT 61.1 H INR 6.92 H* APTT 158.7 H* Fibrinogen < 60 L* D-Dimer > 84523 H ABG pH POC ABG pCO2 POC ABG pO2 ABG pO2 ABG HCO3 ABG Base Excess ABG Hemoglobin ABG Oxyhemoglobin ABG Sodium ABG Potassium ABG Chloride ABG Glucose VBG pH 6.949 L* Oxyhemoglobin Carboxyhemoglobin Sodium Potassium Chloride Carbon Dioxide BUN Creatinine Glucose POC Glucose 196 H Lactic Acid Calcium Ionized Calcium Magnesium AST ALT Alkaline Phosphatase Lactate Dehydrogenase NT-Pro-B Natriuret Pep Total Protein Albumin Arterial Blood Glucose Arterial Blood Ionized Calcium Urine WBC (Auto) Phenytoin Crossmatch 10/03/20 10/03/20 10/03/20 00:40 00:40 00:40 WBC RBC Hgb Hct MCV MCH MCHC RDW Plt Count Lymph % (Auto) [place] % (Auto) Lymph # (Auto) [place] # (Auto) Seg Neutrophils % Seg Neuts % (Manual) Lymphocytes % (Manual) Monocytes % (Manual) Nucleated RBC % Seg Neutrophils # Seg Neutrophils # Man Lymphocytes # (Manual) Monocytes # (Manual) PT 15.1 H INR 1.21 H APTT Fibrinogen D-Dimer ABG pH POC ABG pCO2 POC ABG pO2 ABG pO2 ABG HCO3 ABG Base Excess ABG Hemoglobin ABG Oxyhemoglobin ABG Sodium ABG Potassium ABG Chloride ABG Glucose VBG pH Oxyhemoglobin Carboxyhemoglobin Sodium 136 L Potassium Chloride Carbon Dioxide BUN Creatinine 1.6 H D Glucose 106 H POC Glucose Lactic Acid 5.60 H* Calcium 6.5 L Ionized Calcium Magnesium AST 232 H ALT 104 H Alkaline Phosphatase Lactate Dehydrogenase NT-Pro-B Natriuret Pep Total Protein 3.9 L D Albumin 2.4 L Arterial Blood Glucose Arterial Blood Ionized Calcium Urine WBC (Auto) Phenytoin Crossmatch 10/03/20 10/03/20 10/03/20 02:08 02:08 02:08 WBC 17.6 H RBC 3.27 L Hgb 9.9 L D Hct 29.9 L D MCV MCH MCHC RDW 16.5 H Plt Count 75 L Lymph % (Auto) [place] % (Auto) Lymph # (Auto) [place] # (Auto) Seg Neutrophils % Seg Neuts % (Manual) 76.0 H Lymphocytes % (Manual) Monocytes % (Manual) Nucleated RBC % 8.0 H Seg Neutrophils # Seg Neutrophils # Man 13.4 H Lymphocytes # (Manual) Monocytes # (Manual) PT INR APTT Fibrinogen D-Dimer ABG pH POC ABG pCO2 POC ABG pO2 ABG pO2 ABG HCO3 ABG Base Excess ABG Hemoglobin ABG Oxyhemoglobin ABG Sodium ABG Potassium ABG Chloride ABG Glucose VBG pH Oxyhemoglobin Carboxyhemoglobin Sodium Potassium Chloride Carbon Dioxide 19 L BUN Creatinine 1.4 H Glucose 306 H POC Glucose Lactic Acid 10.50 H* Calcium 6.4 L Ionized Calcium Magnesium AST ALT Alkaline Phosphatase Lactate Dehydrogenase NT-Pro-B Natriuret Pep Total Protein Albumin Arterial Blood Glucose Arterial Blood Ionized Calcium Urine WBC (Auto) Phenytoin Crossmatch 10/03/20 10/03/20 10/03/20 02:42 03:59 05:31 WBC RBC Hgb Hct MCV MCH MCHC RDW Plt Count Lymph % (Auto) [place] % (Auto) Lymph # (Auto) [place] # (Auto) Seg Neutrophils % Seg Neuts % (Manual) Lymphocytes % (Manual) Monocytes % (Manual) Nucleated RBC % Seg Neutrophils # Seg Neutrophils # Man Lymphocytes # (Manual) Monocytes # (Manual) PT INR APTT Fibrinogen D-Dimer ABG pH 7.144 L POC ABG pCO2 54.4 H POC ABG pO2 ABG pO2 ABG HCO3 ABG Base Excess ABG Hemoglobin 10.0 L ABG Oxyhemoglobin ABG Sodium ABG Potassium ABG Chloride 108.0 H ABG Glucose 306 H VBG pH Oxyhemoglobin Carboxyhemoglobin Sodium Potassium Chloride Carbon Dioxide BUN Creatinine Glucose POC Glucose 209 H Lactic Acid 9.20 H* Calcium Ionized Calcium Magnesium AST ALT Alkaline Phosphatase Lactate Dehydrogenase NT-Pro-B Natriuret Pep Total Protein Albumin Arterial Blood Glucose 306 H Arterial Blood Ionized Calcium 3.7 L Urine WBC (Auto) Phenytoin Crossmatch 10/03/20 10/03/20 10/03/20 09:00 09:00 09:00 WBC 27.4 H RBC 2.84 L Hgb 8.5 L Hct 25.1 L MCV MCH MCHC RDW 16.1 H Plt Count 72 L Lymph % (Auto) [place] % (Auto) Lymph # (Auto) [place] # (Auto) Seg Neutrophils % Seg Neuts % (Manual) Lymphocytes % (Manual) 11.0 L Monocytes % (Manual) Nucleated RBC % 3.0 H Seg Neutrophils # Seg Neutrophils # Man 18.4 H Lymphocytes # (Manual) Monocytes # (Manual) 1.9 H PT INR APTT Fibrinogen D-Dimer ABG pH POC ABG pCO2 POC ABG pO2 ABG pO2 ABG HCO3 ABG Base Excess ABG Hemoglobin ABG Oxyhemoglobin ABG Sodium ABG Potassium ABG Chloride ABG Glucose VBG pH Oxyhemoglobin Carboxyhemoglobin Sodium Potassium Chloride Carbon Dioxide BUN Creatinine 1.7 H Glucose 216 H POC Glucose Lactic Acid 9.20 H* Calcium 6.3 L Ionized Calcium Magnesium AST 331 H ALT 171 H Alkaline Phosphatase Lactate Dehydrogenase NT-Pro-B Natriuret Pep Total Protein 3.7 L Albumin 1.9 L Arterial Blood Glucose Arterial Blood Ionized Calcium Urine WBC (Auto) Phenytoin Crossmatch 10/03/20 10/03/20 10/03/20 11:20 11:46 11:50 WBC 28.7 H RBC 2.67 L Hgb 8.0 L Hct 23.7 L MCV MCH MCHC RDW 16.6 H Plt Count 76 L Lymph % (Auto) [place] % (Auto) Lymph # (Auto) [place] # (Auto) Seg Neutrophils % Seg Neuts % (Manual) Lymphocytes % (Manual) Monocytes % (Manual) Nucleated RBC % Seg Neutrophils # Seg Neutrophils # Man Lymphocytes # (Manual) Monocytes # (Manual) PT INR APTT Fibrinogen D-Dimer ABG pH POC ABG pCO2 POC ABG pO2 ABG pO2 ABG HCO3 ABG Base Excess ABG Hemoglobin ABG Oxyhemoglobin ABG Sodium ABG Potassium ABG Chloride ABG Glucose VBG pH Oxyhemoglobin Carboxyhemoglobin Sodium Potassium Chloride Carbon Dioxide BUN Creatinine Glucose POC Glucose 125 H Lactic Acid 8.00 H* Calcium Ionized Calcium Magnesium AST ALT Alkaline Phosphatase Lactate Dehydrogenase NT-Pro-B Natriuret Pep Total Protein Albumin Arterial Blood Glucose Arterial Blood Ionized Calcium Urine WBC (Auto) Phenytoin Crossmatch 10/03/20 10/04/20 10/04/20 11:50 00:40 00:40 WBC RBC Hgb 6.8 L Hct 19.4 L* MCV MCH MCHC RDW Plt Count 49 L Lymph % (Auto) [place] % (Auto) Lymph # (Auto) [place] # (Auto) Seg Neutrophils % Seg Neuts % (Manual) Lymphocytes % (Manual) Monocytes % (Manual) Nucleated RBC % Seg Neutrophils # Seg Neutrophils # Man Lymphocytes # (Manual) Monocytes # (Manual) PT INR APTT Fibrinogen D-Dimer ABG pH 7.244 L POC ABG pCO2 POC ABG pO2 ABG pO2 ABG HCO3 ABG Base Excess -4.5 L ABG Hemoglobin 7.3 L ABG Oxyhemoglobin ABG Sodium ABG Potassium ABG Chloride ABG Glucose VBG pH Oxyhemoglobin Carboxyhemoglobin Sodium Potassium Chloride Carbon Dioxide BUN Creatinine Glucose POC Glucose Lactic Acid Calcium Ionized Calcium Magnesium AST ALT Alkaline Phosphatase Lactate Dehydrogenase NT-Pro-B Natriuret Pep Total Protein Albumin Arterial Blood Glucose Arterial Blood Ionized Calcium Urine WBC (Auto) Phenytoin Crossmatch 10/04/20 10/04/20 10/04/20 03:53 10:00 10:00 WBC 14.6 H RBC 2.57 L Hgb 7.6 L Hct 22.5 L MCV MCH MCHC RDW 15.8 H Plt Count 38 L Lymph % (Auto) 7.7 L [place] % (Auto) Lymph # (Auto) 1.1 L [place] # (Auto) 0.9 H Seg Neutrophils % 85.6 H Seg Neuts % (Manual) Lymphocytes % (Manual) Monocytes % (Manual) Nucleated RBC % Seg Neutrophils # 12.5 H Seg Neutrophils # Man Lymphocytes # (Manual) Monocytes # (Manual) PT INR APTT Fibrinogen D-Dimer ABG pH POC ABG pCO2 POC ABG pO2 110.6 H ABG pO2 ABG HCO3 ABG Base Excess ABG Hemoglobin 6.7 L ABG Oxyhemoglobin ABG Sodium 132.0 L ABG Potassium ABG Chloride ABG Glucose 111 H VBG pH Oxyhemoglobin Carboxyhemoglobin Sodium 134 L D Potassium Chloride 97.6 L Carbon Dioxide BUN Creatinine 1.7 H Glucose POC Glucose Lactic Acid Calcium 6.3 L Ionized Calcium Magnesium AST 203 H ALT 81 H Alkaline Phosphatase Lactate Dehydrogenase NT-Pro-B Natriuret Pep Total Protein 3.9 L Albumin 2.3 L Arterial Blood Glucose 111 H Arterial Blood Ionized Calcium 3.5 L Urine WBC (Auto) Phenytoin Crossmatch 10/04/20 10/04/20 10/04/20 10:00 10:00 10:14 WBC RBC Hgb Hct MCV MCH MCHC RDW Plt Count Lymph % (Auto) [place] % (Auto) Lymph # (Auto) [place] # (Auto) Seg Neutrophils % Seg Neuts % (Manual) Lymphocytes % (Manual) Monocytes % (Manual) Nucleated RBC % Seg Neutrophils # Seg Neutrophils # Man Lymphocytes # (Manual) Monocytes # (Manual) PT INR APTT Fibrinogen D-Dimer > 83926 H ABG pH POC ABG pCO2 POC ABG pO2 ABG pO2 ABG HCO3 ABG Base Excess ABG Hemoglobin ABG Oxyhemoglobin ABG Sodium ABG Potassium ABG Chloride ABG Glucose VBG pH Oxyhemoglobin Carboxyhemoglobin Sodium Potassium Chloride Carbon Dioxide BUN Creatinine Glucose POC Glucose Lactic Acid 3.90 H* Calcium Ionized Calcium Magnesium AST ALT Alkaline Phosphatase Lactate Dehydrogenase NT-Pro-B Natriuret Pep 2788 H Total Protein Albumin Arterial Blood Glucose Arterial Blood Ionized Calcium Urine WBC (Auto) Phenytoin Crossmatch 10/04/20 10/04/20 10/04/20 14:00 14:00 18:00 WBC 15.7 H RBC 3.17 L Hgb 9.3 L 9.6 L Hct 27.2 L 28.0 L MCV MCH MCHC RDW 16.9 H Plt Count 41 L Lymph % (Auto) 8.6 L [place] % (Auto) Lymph # (Auto) [place] # (Auto) 0.9 H Seg Neutrophils % 85.4 H Seg Neuts % (Manual) Lymphocytes % (Manual) Monocytes % (Manual) Nucleated RBC % Seg Neutrophils # 13.4 H Seg Neutrophils # Man Lymphocytes # (Manual) Monocytes # (Manual) PT INR APTT Fibrinogen D-Dimer ABG pH POC ABG pCO2 POC ABG pO2 ABG pO2 ABG HCO3 ABG Base Excess ABG Hemoglobin ABG Oxyhemoglobin ABG Sodium ABG Potassium ABG Chloride ABG Glucose VBG pH Oxyhemoglobin Carboxyhemoglobin Sodium 133 L Potassium Chloride 96.4 L Carbon Dioxide BUN 18 H Creatinine 1.7 H Glucose POC Glucose Lactic Acid Calcium 6.3 L Ionized Calcium Magnesium AST ALT Alkaline Phosphatase Lactate Dehydrogenase NT-Pro-B Natriuret Pep Total Protein Albumin Arterial Blood Glucose Arterial Blood Ionized Calcium Urine WBC (Auto) Phenytoin Crossmatch 10/04/20 10/04/20 10/05/20 18:00 22:00 05:00 WBC 17.6 H RBC 3.34 L Hgb 9.9 L Hct 29.4 L MCV MCH MCHC RDW 17.1 H Plt Count 56 L Lymph % (Auto) 8.5 L [place] % (Auto) Lymph # (Auto) [place] # (Auto) 1.0 H Seg Neutrophils % 85.1 H Seg Neuts % (Manual) Lymphocytes % (Manual) Monocytes % (Manual) Nucleated RBC % Seg Neutrophils # 15.0 H Seg Neutrophils # Man Lymphocytes # (Manual) Monocytes # (Manual) PT INR APTT Fibrinogen D-Dimer ABG pH POC ABG pCO2 POC ABG pO2 ABG pO2 ABG HCO3 ABG Base Excess ABG Hemoglobin ABG Oxyhemoglobin ABG Sodium ABG Potassium ABG Chloride ABG Glucose VBG pH Oxyhemoglobin Carboxyhemoglobin Sodium 136 L Potassium Chloride Carbon Dioxide BUN 18 H Creatinine 1.7 H Glucose POC Glucose Lactic Acid 2.30 H* Calcium 6.6 L Ionized Calcium Magnesium AST ALT Alkaline Phosphatase Lactate Dehydrogenase NT-Pro-B Natriuret Pep Total Protein Albumin Arterial Blood Glucose Arterial Blood Ionized Calcium Urine WBC (Auto) Phenytoin Crossmatch 10/05/20 10/05/20 10/05/20 05:00 05:00 05:03 WBC RBC Hgb Hct MCV MCH MCHC RDW Plt Count Lymph % (Auto) [place] % (Auto) Lymph # (Auto) [place] # (Auto) Seg Neutrophils % Seg Neuts % (Manual) Lymphocytes % (Manual) Monocytes % (Manual) Nucleated RBC % Seg Neutrophils # Seg Neutrophils # Man Lymphocytes # (Manual) Monocytes # (Manual) PT INR APTT Fibrinogen D-Dimer ABG pH 7.458 H POC ABG pCO2 POC ABG pO2 ABG pO2 74.3 L ABG HCO3 27.5 H ABG Base Excess 3.4 H ABG Hemoglobin 10.0 L ABG Oxyhemoglobin ABG Sodium ABG Potassium ABG Chloride ABG Glucose VBG pH Oxyhemoglobin 94.9 L Carboxyhemoglobin Sodium Potassium Chloride Carbon Dioxide BUN 19 H Creatinine 1.8 H Glucose POC Glucose Lactic Acid Calcium 6.8 L Ionized Calcium 3.9 L Magnesium AST 225 H ALT 85 H Alkaline Phosphatase Lactate Dehydrogenase NT-Pro-B Natriuret Pep Total Protein 4.5 L Albumin 2.7 L Arterial Blood Glucose Arterial Blood Ionized Calcium Urine WBC (Auto) Phenytoin Crossmatch 10/05/20 10/05/20 10/05/20 10:10 15:00 19:40 WBC RBC Hgb Hct MCV MCH MCHC RDW Plt Count Lymph % (Auto) [place] % (Auto) Lymph # (Auto) [place] # (Auto) Seg Neutrophils % Seg Neuts % (Manual) Lymphocytes % (Manual) Monocytes % (Manual) Nucleated RBC % Seg Neutrophils # Seg Neutrophils # Man Lymphocytes # (Manual) Monocytes # (Manual) PT INR APTT Fibrinogen D-Dimer ABG pH POC ABG pCO2 POC ABG pO2 ABG pO2 ABG HCO3 ABG Base Excess ABG Hemoglobin ABG Oxyhemoglobin ABG Sodium ABG Potassium ABG Chloride ABG Glucose VBG pH Oxyhemoglobin Carboxyhemoglobin Sodium Potassium 3.5 L Chloride Carbon Dioxide 31 H 32 H BUN 19 H 19 H Creatinine 1.8 H 1.8 H Glucose POC Glucose Lactic Acid Calcium 7.0 L 7.2 L Ionized Calcium Magnesium 2.90 H AST ALT Alkaline Phosphatase Lactate Dehydrogenase NT-Pro-B Natriuret Pep Total Protein Albumin Arterial Blood Glucose Arterial Blood Ionized Calcium Urine WBC (Auto) Phenytoin Crossmatch 10/06/20 10/06/20 10/06/20 01:05 03:12 04:00 WBC 17.1 H RBC 3.47 L Hgb Hct MCV MCH MCHC RDW 17.4 H Plt Count 82 L Lymph % (Auto) 8.3 L [place] % (Auto) Lymph # (Auto) [place] # (Auto) 1.1 H Seg Neutrophils % 83.8 H Seg Neuts % (Manual) Lymphocytes % (Manual) Monocytes % (Manual) Nucleated RBC % Seg Neutrophils # 14.3 H Seg Neutrophils # Man Lymphocytes # (Manual) Monocytes # (Manual) PT INR APTT Fibrinogen D-Dimer ABG pH 7.474 H POC ABG pCO2 POC ABG pO2 129.5 H ABG pO2 ABG HCO3 ABG Base Excess ABG Hemoglobin 11.4 L ABG Oxyhemoglobin ABG Sodium 131.8 L ABG Potassium ABG Chloride ABG Glucose 103 H VBG pH Oxyhemoglobin Carboxyhemoglobin 0.3 L Sodium Potassium Chloride Carbon Dioxide BUN Creatinine Glucose POC Glucose Lactic Acid Calcium Ionized Calcium Magnesium 3.70 H AST ALT Alkaline Phosphatase Lactate Dehydrogenase NT-Pro-B Natriuret Pep Total Protein Albumin Arterial Blood Glucose 103 H Arterial Blood Ionized Calcium 4.2 L Urine WBC (Auto) Phenytoin Crossmatch 10/06/20 10/06/20 10/06/20 04:00 05:31 08:12 WBC RBC Hgb Hct MCV MCH MCHC RDW Plt Count Lymph % (Auto) [place] % (Auto) Lymph # (Auto) [place] # (Auto) Seg Neutrophils % Seg Neuts % (Manual) Lymphocytes % (Manual) Monocytes % (Manual) Nucleated RBC % Seg Neutrophils # Seg Neutrophils # Man Lymphocytes # (Manual) Monocytes # (Manual) PT INR APTT Fibrinogen D-Dimer ABG pH POC ABG pCO2 POC ABG pO2 ABG pO2 ABG HCO3 ABG Base Excess ABG Hemoglobin ABG Oxyhemoglobin ABG Sodium ABG Potassium ABG Chloride ABG Glucose VBG pH Oxyhemoglobin Carboxyhemoglobin Sodium Potassium 3.5 L Chloride Carbon Dioxide BUN 19 H Creatinine 1.8 H Glucose 102 H POC Glucose 116 H Lactic Acid Calcium 7.2 L Ionized Calcium Magnesium 5.40 H AST 307 H ALT 137 H Alkaline Phosphatase Lactate Dehydrogenase NT-Pro-B Natriuret Pep Total Protein 4.5 L Albumin 2.6 L Arterial Blood Glucose Arterial Blood Ionized Calcium Urine WBC (Auto) Phenytoin Crossmatch 10/06/20 10/06/20 10/06/20 11:00 11:50 20:13 WBC RBC Hgb Hct MCV MCH MCHC RDW Plt Count Lymph % (Auto) [place] % (Auto) Lymph # (Auto) [place] # (Auto) Seg Neutrophils % Seg Neuts % (Manual) Lymphocytes % (Manual) Monocytes % (Manual) Nucleated RBC % Seg Neutrophils # Seg Neutrophils # Man Lymphocytes # (Manual) Monocytes # (Manual) PT INR APTT Fibrinogen D-Dimer ABG pH POC ABG pCO2 POC ABG pO2 ABG pO2 ABG HCO3 ABG Base Excess ABG Hemoglobin ABG Oxyhemoglobin ABG Sodium ABG Potassium ABG Chloride ABG Glucose VBG pH Oxyhemoglobin Carboxyhemoglobin Sodium Potassium Chloride Carbon Dioxide BUN Creatinine Glucose POC Glucose 106 H Lactic Acid Calcium Ionized Calcium Magnesium 6.50 H 6.20 H AST ALT Alkaline Phosphatase Lactate Dehydrogenase NT-Pro-B Natriuret Pep Total Protein Albumin Arterial Blood Glucose Arterial Blood Ionized Calcium Urine WBC (Auto) Phenytoin Crossmatch 10/06/20 10/06/20 10/06/20 20:17 22:29 23:57 WBC RBC Hgb Hct MCV MCH MCHC RDW Plt Count Lymph % (Auto) [place] % (Auto) Lymph # (Auto) [place] # (Auto) Seg Neutrophils % Seg Neuts % (Manual) Lymphocytes % (Manual) Monocytes % (Manual) Nucleated RBC % Seg Neutrophils # Seg Neutrophils # Man Lymphocytes # (Manual) Monocytes # (Manual) PT INR APTT Fibrinogen D-Dimer ABG pH POC ABG pCO2 POC ABG pO2 ABG pO2 ABG HCO3 ABG Base Excess ABG Hemoglobin ABG Oxyhemoglobin ABG Sodium ABG Potassium ABG Chloride ABG Glucose VBG pH Oxyhemoglobin Carboxyhemoglobin Sodium Potassium Chloride Carbon Dioxide BUN Creatinine Glucose POC Glucose 112 H 126 H 133 H Lactic Acid Calcium Ionized Calcium Magnesium AST ALT Alkaline Phosphatase Lactate Dehydrogenase NT-Pro-B Natriuret Pep Total Protein Albumin Arterial Blood Glucose Arterial Blood Ionized Calcium Urine WBC (Auto) Phenytoin Crossmatch 10/07/20 10/07/20 10/07/20 00:35 02:22 03:16 WBC RBC Hgb Hct MCV MCH MCHC RDW Plt Count Lymph % (Auto) [place] % (Auto) Lymph # (Auto) [place] # (Auto) Seg Neutrophils % Seg Neuts % (Manual) Lymphocytes % (Manual) Monocytes % (Manual) Nucleated RBC % Seg Neutrophils # Seg Neutrophils # Man Lymphocytes # (Manual) Monocytes # (Manual) PT INR APTT Fibrinogen D-Dimer ABG pH POC ABG pCO2 POC ABG pO2 ABG pO2 ABG HCO3 ABG Base Excess ABG Hemoglobin 11.6 L ABG Oxyhemoglobin ABG Sodium ABG Potassium ABG Chloride ABG Glucose 156 H VBG pH Oxyhemoglobin Carboxyhemoglobin 0.3 L Sodium Potassium Chloride Carbon Dioxide BUN Creatinine Glucose POC Glucose 124 H Lactic Acid Calcium Ionized Calcium Magnesium 5.90 H AST ALT Alkaline Phosphatase Lactate Dehydrogenase NT-Pro-B Natriuret Pep Total Protein Albumin Arterial Blood Glucose 156 H Arterial Blood Ionized Calcium 4.2 L Urine WBC (Auto) Phenytoin Crossmatch 10/07/20 10/07/20 10/07/20 04:06 05:45 07:05 WBC 19.2 H RBC 3.57 L Hgb Hct MCV MCH MCHC 35 H RDW 17.1 H Plt Count 129 L Lymph % (Auto) [place] % (Auto) Lymph # (Auto) [place] # (Auto) Seg Neutrophils % Seg Neuts % (Manual) 94.0 H Lymphocytes % (Manual) 6.0 L Monocytes % (Manual) Nucleated RBC % Seg Neutrophils # Seg Neutrophils # Man 18.0 H Lymphocytes # (Manual) Monocytes # (Manual) PT INR APTT Fibrinogen D-Dimer ABG pH POC ABG pCO2 POC ABG pO2 ABG pO2 ABG HCO3 ABG Base Excess ABG Hemoglobin ABG Oxyhemoglobin ABG Sodium ABG Potassium ABG Chloride ABG Glucose VBG pH Oxyhemoglobin Carboxyhemoglobin Sodium Potassium Chloride Carbon Dioxide BUN Creatinine Glucose POC Glucose 135 H 149 H Lactic Acid Calcium Ionized Calcium Magnesium AST ALT Alkaline Phosphatase Lactate Dehydrogenase NT-Pro-B Natriuret Pep Total Protein Albumin Arterial Blood Glucose Arterial Blood Ionized Calcium Urine WBC (Auto) Phenytoin Crossmatch 10/07/20 10/07/20 10/07/20 07:05 07:05 12:21 WBC RBC Hgb Hct MCV MCH MCHC RDW Plt Count Lymph % (Auto) [place] % (Auto) Lymph # (Auto) [place] # (Auto) Seg Neutrophils % Seg Neuts % (Manual) Lymphocytes % (Manual) Monocytes % (Manual) Nucleated RBC % Seg Neutrophils # Seg Neutrophils # Man Lymphocytes # (Manual) Monocytes # (Manual) PT INR APTT Fibrinogen D-Dimer ABG pH POC ABG pCO2 POC ABG pO2 ABG pO2 ABG HCO3 ABG Base Excess ABG Hemoglobin ABG Oxyhemoglobin ABG Sodium ABG Potassium ABG Chloride ABG Glucose VBG pH Oxyhemoglobin Carboxyhemoglobin Sodium Potassium Chloride Carbon Dioxide BUN 21 H Creatinine 1.7 H Glucose 171 H POC Glucose 124 H Lactic Acid Calcium 7.4 L Ionized Calcium Magnesium 6.10 H AST 245 H ALT 147 H Alkaline Phosphatase Lactate Dehydrogenase NT-Pro-B Natriuret Pep Total Protein 5.3 L Albumin 2.8 L Arterial Blood Glucose Arterial Blood Ionized Calcium Urine WBC (Auto) Phenytoin Crossmatch 10/07/20 10/07/20 10/07/20 19:52 21:00 21:50 WBC RBC Hgb Hct MCV MCH MCHC RDW Plt Count Lymph % (Auto) [place] % (Auto) Lymph # (Auto) [place] # (Auto) Seg Neutrophils % Seg Neuts % (Manual) Lymphocytes % (Manual) Monocytes % (Manual) Nucleated RBC % Seg Neutrophils # Seg Neutrophils # Man Lymphocytes # (Manual) Monocytes # (Manual) PT INR APTT Fibrinogen D-Dimer ABG pH POC ABG pCO2 POC ABG pO2 ABG pO2 ABG HCO3 ABG Base Excess ABG Hemoglobin ABG Oxyhemoglobin ABG Sodium ABG Potassium ABG Chloride ABG Glucose VBG pH Oxyhemoglobin Carboxyhemoglobin Sodium Potassium Chloride Carbon Dioxide BUN Creatinine Glucose POC Glucose 193 H 138 H Lactic Acid Calcium Ionized Calcium 4.4 L Magnesium AST ALT Alkaline Phosphatase Lactate Dehydrogenase NT-Pro-B Natriuret Pep Total Protein Albumin Arterial Blood Glucose Arterial Blood Ionized Calcium Urine WBC (Auto) Phenytoin Crossmatch 10/07/20 10/08/20 10/08/20 23:41 04:20 05:30 WBC RBC Hgb Hct MCV MCH MCHC RDW Plt Count Lymph % (Auto) [place] % (Auto) Lymph # (Auto) [place] # (Auto) Seg Neutrophils % Seg Neuts % (Manual) Lymphocytes % (Manual) Monocytes % (Manual) Nucleated RBC % Seg Neutrophils # Seg Neutrophils # Man Lymphocytes # (Manual) Monocytes # (Manual) PT INR APTT Fibrinogen D-Dimer ABG pH 7.467 H POC ABG pCO2 POC ABG pO2 189.8 H ABG pO2 ABG HCO3 ABG Base Excess ABG Hemoglobin 10.8 L ABG Oxyhemoglobin ABG Sodium ABG Potassium ABG Chloride ABG Glucose 133 H VBG pH Oxyhemoglobin Carboxyhemoglobin Sodium Potassium Chloride Carbon Dioxide BUN Creatinine Glucose POC Glucose 118 H 114 H Lactic Acid Calcium Ionized Calcium Magnesium AST ALT Alkaline Phosphatase Lactate Dehydrogenase NT-Pro-B Natriuret Pep Total Protein Albumin Arterial Blood Glucose 133 H Arterial Blood Ionized Calcium 4.2 L Urine WBC (Auto) Phenytoin Crossmatch 10/08/20 10/08/20 10/08/20 05:43 06:42 06:42 WBC 23.6 H RBC 3.54 L Hgb Hct MCV MCH MCHC RDW 17.8 H Plt Count Lymph % (Auto) [place] % (Auto) Lymph # (Auto) [place] # (Auto) Seg Neutrophils % Seg Neuts % (Manual) 93.0 H Lymphocytes % (Manual) 3.0 L Monocytes % (Manual) Nucleated RBC % 1.0 H Seg Neutrophils # Seg Neutrophils # Man 21.9 H Lymphocytes # (Manual) 0.7 L Monocytes # (Manual) 0.9 H PT INR APTT Fibrinogen D-Dimer ABG pH POC ABG pCO2 POC ABG pO2 ABG pO2 ABG HCO3 ABG Base Excess ABG Hemoglobin ABG Oxyhemoglobin ABG Sodium ABG Potassium ABG Chloride ABG Glucose VBG pH Oxyhemoglobin Carboxyhemoglobin Sodium Potassium Chloride Carbon Dioxide BUN 28 H Creatinine 1.6 H Glucose 141 H POC Glucose 126 H Lactic Acid Calcium 7.6 L Ionized Calcium Magnesium AST 162 H ALT 103 H Alkaline Phosphatase Lactate Dehydrogenase NT-Pro-B Natriuret Pep Total Protein 5.4 L Albumin 2.7 L Arterial Blood Glucose Arterial Blood Ionized Calcium Urine WBC (Auto) Phenytoin Crossmatch 10/08/20 10/08/20 10/08/20 11:20 16:05 20:14 WBC RBC Hgb Hct MCV MCH MCHC RDW Plt Count Lymph % (Auto) [place] % (Auto) Lymph # (Auto) [place] # (Auto) Seg Neutrophils % Seg Neuts % (Manual) Lymphocytes % (Manual) Monocytes % (Manual) Nucleated RBC % Seg Neutrophils # Seg Neutrophils # Man Lymphocytes # (Manual) Monocytes # (Manual) PT INR APTT Fibrinogen D-Dimer ABG pH POC ABG pCO2 POC ABG pO2 ABG pO2 ABG HCO3 ABG Base Excess ABG Hemoglobin ABG Oxyhemoglobin ABG Sodium ABG Potassium ABG Chloride ABG Glucose VBG pH Oxyhemoglobin Carboxyhemoglobin Sodium Potassium Chloride Carbon Dioxide BUN Creatinine Glucose POC Glucose 127 H 172 H 147 H Lactic Acid Calcium Ionized Calcium Magnesium AST ALT Alkaline Phosphatase Lactate Dehydrogenase NT-Pro-B Natriuret Pep Total Protein Albumin Arterial Blood Glucose Arterial Blood Ionized Calcium Urine WBC (Auto) Phenytoin Crossmatch 10/08/20 10/08/20 10/09/20 21:27 23:24 02:10 WBC RBC Hgb Hct MCV MCH MCHC RDW Plt Count Lymph % (Auto) [place] % (Auto) Lymph # (Auto) [place] # (Auto) Seg Neutrophils % Seg Neuts % (Manual) Lymphocytes % (Manual) Monocytes % (Manual) Nucleated RBC % Seg Neutrophils # Seg Neutrophils # Man Lymphocytes # (Manual) Monocytes # (Manual) PT INR APTT Fibrinogen D-Dimer ABG pH POC ABG pCO2 POC ABG pO2 ABG pO2 ABG HCO3 ABG Base Excess ABG Hemoglobin ABG Oxyhemoglobin ABG Sodium ABG Potassium ABG Chloride ABG Glucose VBG pH Oxyhemoglobin Carboxyhemoglobin Sodium Potassium Chloride Carbon Dioxide BUN Creatinine Glucose POC Glucose 140 H 135 H 111 H Lactic Acid Calcium Ionized Calcium Magnesium AST ALT Alkaline Phosphatase Lactate Dehydrogenase NT-Pro-B Natriuret Pep Total Protein Albumin Arterial Blood Glucose Arterial Blood Ionized Calcium Urine WBC (Auto) Phenytoin Crossmatch 10/09/20 10/09/20 10/09/20 03:44 04:39 05:46 WBC 19.7 H RBC 3.51 L Hgb Hct MCV MCH MCHC RDW 17.7 H Plt Count Lymph % (Auto) [place] % (Auto) Lymph # (Auto) [place] # (Auto) Seg Neutrophils % Seg Neuts % (Manual) 86.0 H Lymphocytes % (Manual) 4.0 L Monocytes % (Manual) 9.0 H Nucleated RBC % Seg Neutrophils # Seg Neutrophils # Man 16.9 H Lymphocytes # (Manual) 0.8 L Monocytes # (Manual) 1.8 H PT INR APTT Fibrinogen D-Dimer ABG pH 7.513 H POC ABG pCO2 POC ABG pO2 33.6 L ABG pO2 ABG HCO3 ABG Base Excess ABG Hemoglobin 11.1 L ABG Oxyhemoglobin 70.2 L ABG Sodium ABG Potassium 3.2 L ABG Chloride 108.0 H ABG Glucose 108 H VBG pH Oxyhemoglobin Carboxyhemoglobin Sodium Potassium Chloride Carbon Dioxide BUN Creatinine Glucose POC Glucose 109 H Lactic Acid Calcium Ionized Calcium Magnesium AST ALT Alkaline Phosphatase Lactate Dehydrogenase NT-Pro-B Natriuret Pep Total Protein Albumin Arterial Blood Glucose 108 H Arterial Blood Ionized Calcium 4.3 L Urine WBC (Auto) Phenytoin Crossmatch 10/09/20 10/10/20 10/10/20 05:46 04:00 04:00 WBC 18.4 H RBC Hgb Hct MCV MCH MCHC RDW 17.5 H Plt Count Lymph % (Auto) 9.8 L [place] % (Auto) 8.8 H Lymph # (Auto) [place] # (Auto) 1.6 H Seg Neutrophils % 80.0 H Seg Neuts % (Manual) Lymphocytes % (Manual) Monocytes % (Manual) Nucleated RBC % Seg Neutrophils # 14.7 H Seg Neutrophils # Man Lymphocytes # (Manual) Monocytes # (Manual) PT INR APTT Fibrinogen D-Dimer ABG pH POC ABG pCO2 POC ABG pO2 ABG pO2 ABG HCO3 ABG Base Excess ABG Hemoglobin ABG Oxyhemoglobin ABG Sodium ABG Potassium ABG Chloride ABG Glucose VBG pH Oxyhemoglobin Carboxyhemoglobin Sodium 146 H Potassium 3.2 L 2.9 L* Chloride 108.9 H 112.6 H Carbon Dioxide BUN 34 H 28 H Creatinine 1.4 H 1.3 H Glucose 109 H 101 H POC Glucose Lactic Acid Calcium 7.6 L 7.8 L Ionized Calcium Magnesium AST 137 H 122 H ALT 99 H 81 H Alkaline Phosphatase Lactate Dehydrogenase NT-Pro-B Natriuret Pep Total Protein 5.1 L 5.2 L Albumin 2.6 L 2.7 L Arterial Blood Glucose Arterial Blood Ionized Calcium Urine WBC (Auto) Phenytoin Crossmatch 10/10/20 10/10/20 10/11/20 04:42 09:50 00:44 WBC RBC Hgb Hct MCV MCH MCHC RDW Plt Count Lymph % (Auto) [place] % (Auto) Lymph # (Auto) [place] # (Auto) Seg Neutrophils % Seg Neuts % (Manual) Lymphocytes % (Manual) Monocytes % (Manual) Nucleated RBC % Seg Neutrophils # Seg Neutrophils # Man Lymphocytes # (Manual) Monocytes # (Manual) PT INR APTT Fibrinogen D-Dimer ABG pH 7.534 H POC ABG pCO2 POC ABG pO2 ABG pO2 95.2 H ABG HCO3 ABG Base Excess ABG Hemoglobin 11.3 L ABG Oxyhemoglobin ABG Sodium ABG Potassium ABG Chloride ABG Glucose VBG pH Oxyhemoglobin Carboxyhemoglobin Sodium Potassium Chloride Carbon Dioxide BUN Creatinine Glucose POC Glucose 109 H 106 H Lactic Acid Calcium Ionized Calcium Magnesium AST ALT Alkaline Phosphatase Lactate Dehydrogenase NT-Pro-B Natriuret Pep Total Protein Albumin Arterial Blood Glucose Arterial Blood Ionized Calcium Urine WBC (Auto) Phenytoin Crossmatch 10/11/20 10/11/20 10/11/20 04:00 04:00 06:08 WBC 27.0 H RBC Hgb Hct MCV MCH MCHC RDW 17.7 H Plt Count Lymph % (Auto) 6.3 L [place] % (Auto) Lymph # (Auto) [place] # (Auto) 1.5 H Seg Neutrophils % 87.1 H Seg Neuts % (Manual) Lymphocytes % (Manual) Monocytes % (Manual) Nucleated RBC % Seg Neutrophils # 23.5 H Seg Neutrophils # Man Lymphocytes # (Manual) Monocytes # (Manual) PT INR APTT Fibrinogen D-Dimer ABG pH POC ABG pCO2 POC ABG pO2 ABG pO2 ABG HCO3 ABG Base Excess ABG Hemoglobin ABG Oxyhemoglobin ABG Sodium ABG Potassium ABG Chloride ABG Glucose VBG pH Oxyhemoglobin Carboxyhemoglobin Sodium Potassium 3.2 L Chloride 110.4 H Carbon Dioxide 19 L BUN 22 H Creatinine Glucose 116 H POC Glucose 107 H Lactic Acid Calcium 7.7 L Ionized Calcium Magnesium 1.60 L AST ALT Alkaline Phosphatase Lactate Dehydrogenase NT-Pro-B Natriuret Pep Total Protein Albumin Arterial Blood Glucose Arterial Blood Ionized Calcium Urine WBC (Auto) Phenytoin Crossmatch 10/11/20 10/11/20 10/12/20 11:41 13:26 03:52 WBC RBC Hgb Hct MCV MCH MCHC RDW Plt Count Lymph % (Auto) [place] % (Auto) Lymph # (Auto) [place] # (Auto) Seg Neutrophils % Seg Neuts % (Manual) Lymphocytes % (Manual) Monocytes % (Manual) Nucleated RBC % Seg Neutrophils # Seg Neutrophils # Man Lymphocytes # (Manual) Monocytes # (Manual) PT INR APTT Fibrinogen D-Dimer ABG pH POC ABG pCO2 POC ABG pO2 ABG pO2 ABG HCO3 ABG Base Excess ABG Hemoglobin ABG Oxyhemoglobin ABG Sodium ABG Potassium ABG Chloride ABG Glucose VBG pH Oxyhemoglobin Carboxyhemoglobin Sodium Potassium Chloride Carbon Dioxide BUN Creatinine Glucose POC Glucose 116 H 114 H Lactic Acid Calcium Ionized Calcium Magnesium AST ALT Alkaline Phosphatase Lactate Dehydrogenase NT-Pro-B Natriuret Pep Total Protein Albumin Arterial Blood Glucose Arterial Blood Ionized Calcium Urine WBC (Auto) 24.0 H Phenytoin Crossmatch 10/12/20 10/12/20 10/12/20 04:24 14:47 21:33 WBC RBC Hgb Hct MCV MCH MCHC RDW Plt Count Lymph % (Auto) [place] % (Auto) Lymph # (Auto) [place] # (Auto) Seg Neutrophils % Seg Neuts % (Manual) Lymphocytes % (Manual) Monocytes % (Manual) Nucleated RBC % Seg Neutrophils # Seg Neutrophils # Man Lymphocytes # (Manual) Monocytes # (Manual) PT INR APTT Fibrinogen D-Dimer ABG pH POC ABG pCO2 POC ABG pO2 ABG pO2 ABG HCO3 ABG Base Excess ABG Hemoglobin ABG Oxyhemoglobin ABG Sodium ABG Potassium ABG Chloride ABG Glucose VBG pH Oxyhemoglobin Carboxyhemoglobin Sodium Potassium Chloride 109.9 H Carbon Dioxide 13 L BUN 18 H Creatinine Glucose 119 H POC Glucose 107 H Lactic Acid Calcium 7.6 L Ionized Calcium Magnesium 1.60 L AST ALT Alkaline Phosphatase Lactate Dehydrogenase NT-Pro-B Natriuret Pep Total Protein Albumin Arterial Blood Glucose Arterial Blood Ionized Calcium Urine WBC (Auto) Phenytoin Crossmatch 10/12/20 10/12/20 10/13/20 Unknown Unknown 07:00 WBC 24.3 H RBC 3.38 L Hgb 9.8 L Hct MCV MCH MCHC RDW 18.7 H Plt Count Lymph % (Auto) [place] % (Auto) Lymph # (Auto) [place] # (Auto) Seg Neutrophils % Seg Neuts % (Manual) 93.5 H Lymphocytes % (Manual) 4.5 L Monocytes % (Manual) Nucleated RBC % Seg Neutrophils # Seg Neutrophils # Man 22.7 H Lymphocytes # (Manual) 1.1 L Monocytes # (Manual) PT INR APTT Fibrinogen D-Dimer ABG pH POC ABG pCO2 POC ABG pO2 ABG pO2 ABG HCO3 ABG Base Excess ABG Hemoglobin ABG Oxyhemoglobin ABG Sodium ABG Potassium ABG Chloride ABG Glucose VBG pH Oxyhemoglobin Carboxyhemoglobin Sodium 135 L D Potassium 3.1 L Chloride Carbon Dioxide 17 L BUN Creatinine Glucose 510 H* POC Glucose Lactic Acid Calcium 7.2 L Ionized Calcium Magnesium AST ALT Alkaline Phosphatase Lactate Dehydrogenase NT-Pro-B Natriuret Pep Total Protein Albumin Arterial Blood Glucose Arterial Blood Ionized Calcium Urine WBC (Auto) Phenytoin 5.7 L Crossmatch 10/13/20 10/13/20 10/13/20 07:00 07:00 07:18 WBC 23.6 H RBC 3.26 L Hgb 9.4 L Hct 28.7 L MCV MCH MCHC RDW 18.3 H Plt Count Lymph % (Auto) [place] % (Auto) Lymph # (Auto) [place] # (Auto) Seg Neutrophils % Seg Neuts % (Manual) Lymphocytes % (Manual) Monocytes % (Manual) Nucleated RBC % Seg Neutrophils # Seg Neutrophils # Man Lymphocytes # (Manual) Monocytes # (Manual) PT INR APTT Fibrinogen D-Dimer ABG pH 7.473 H POC ABG pCO2 20.7 L POC ABG pO2 137.9 H ABG pO2 ABG HCO3 ABG Base Excess ABG Hemoglobin 11.2 L ABG Oxyhemoglobin 98.3 H ABG Sodium 135.9 L ABG Potassium ABG Chloride 111.0 H ABG Glucose 109 H VBG pH Oxyhemoglobin Carboxyhemoglobin 0.3 L Sodium 135 L Potassium 3.5 L Chloride 109.1 H Carbon Dioxide 18 L BUN Creatinine Glucose POC Glucose Lactic Acid Calcium 7.3 L Ionized Calcium Magnesium 1.60 L AST ALT Alkaline Phosphatase Lactate Dehydrogenase NT-Pro-B Natriuret Pep Total Protein Albumin Arterial Blood Glucose 109 H Arterial Blood Ionized Calcium Urine WBC (Auto) Phenytoin Crossmatch 10/14/20 10/14/20 10/15/20 04:00 04:00 05:50 WBC 28.6 H 23.2 H RBC 3.61 L 3.43 L Hgb 9.9 L Hct 30.0 L MCV MCH MCHC RDW 18.3 H 18.2 H Plt Count Lymph % (Auto) [place] % (Auto) Lymph # (Auto) [place] # (Auto) Seg Neutrophils % Seg Neuts % (Manual) 88.0 H 90.0 H Lymphocytes % (Manual) 5.0 L 4.0 L Monocytes % (Manual) Nucleated RBC % Seg Neutrophils # Seg Neutrophils # Man 25.2 H 20.9 H Lymphocytes # (Manual) 0.9 L Monocytes # (Manual) 1.4 H 0.9 H PT INR APTT Fibrinogen D-Dimer ABG pH POC ABG pCO2 POC ABG pO2 ABG pO2 ABG HCO3 ABG Base Excess ABG Hemoglobin ABG Oxyhemoglobin ABG Sodium ABG Potassium ABG Chloride ABG Glucose VBG pH Oxyhemoglobin Carboxyhemoglobin Sodium Potassium Chloride 109.9 H Carbon Dioxide 17 L BUN Creatinine Glucose POC Glucose Lactic Acid Calcium Ionized Calcium Magnesium AST ALT Alkaline Phosphatase Lactate Dehydrogenase NT-Pro-B Natriuret Pep Total Protein Albumin Arterial Blood Glucose Arterial Blood Ionized Calcium Urine WBC (Auto) Phenytoin Crossmatch 10/15/20 05:50 WBC RBC Hgb Hct MCV MCH MCHC RDW Plt Count Lymph % (Auto) [place] % (Auto) Lymph # (Auto) [place] # (Auto) Seg Neutrophils % Seg Neuts % (Manual) Lymphocytes % (Manual) Monocytes % (Manual) Nucleated RBC % Seg Neutrophils # Seg Neutrophils # Man Lymphocytes # (Manual) Monocytes # (Manual) PT INR APTT Fibrinogen D-Dimer ABG pH POC ABG pCO2 POC ABG pO2 ABG pO2 ABG HCO3 ABG Base Excess ABG Hemoglobin ABG Oxyhemoglobin ABG Sodium ABG Potassium ABG Chloride ABG Glucose VBG pH Oxyhemoglobin Carboxyhemoglobin Sodium Potassium Chloride 110.3 H Carbon Dioxide 18 L BUN Creatinine Glucose 105 H POC Glucose Lactic Acid Calcium 8.3 L Ionized Calcium Magnesium AST ALT Alkaline Phosphatase Lactate Dehydrogenase NT-Pro-B Natriuret Pep Total Protein Albumin Arterial Blood Glucose Arterial Blood Ionized Calcium Urine WBC (Auto) Phenytoin Crossmatch
--- NOTE | 2020-10-15 13:42 | Magnetic Resonance Report ---
MR brain wo con INDICATION / CLINICAL INFORMATION: AMS. TECHNIQUE: Multiplanar, multisequence MR images of the brain were obtained. COMPARISON: 10/06/2020 CT head FINDINGS: INTRACRANIAL: There is extensive abnormal T2 signal hyperintensity involving the cortex and subcortic al white matter predominantly within the frontal parietal regions but also involving the occipital lo bes, parietal lobes, and frontal lobes. There is involvement in the watershed distribution. No associ ated hemosiderin on gradient imaging. There is some mild restricted diffusion present. There is T2 si gnal hyperintensity involving the basal ganglia,'s cerebellum, and splenomegaly corpus callosum.. No hemorrhage. Ventricular caliber is normal. No extra-axial collection. No mass. No herniation. Major intracranial vascular flow voids are preserved. ORBITS: No significant abnormality of visualized orbits. SINUSES / MASTOIDS: Mastoid effusions which are common in the setting of intubation. Mild mucosal thi ckening in the ethmoid air cells and sphenoid sinuses. ADDITIONAL FINDINGS: None. IMPRESSION: 1. There is extensive abnormal cortical and subcortical edema as described above which given the clin ical setting of eclampsia is most consistent with hypertensive encephalopathy/PRES. Retrospectively the edema appears improved compared to October 06, 2020. Correlate clinically. Signer Name: Paulo Parra MD Signed: 10/15/2020 1:37 PM Workstation Name: [id number]
[2020-10-15] MEDS: ACETAMINOPHEN 325 MG/10.15 ML ORAL LIQD UNIT DOSE FEEDTUBE PRN (14:20)
[2020-10-15] MEDS: DEXTROSE 10% IN WATER 1,000 ML IV SCH (18:48)
[2020-10-16] MEDS: ACETAMINOPHEN 325 MG/10.15 ML ORAL LIQD UNIT DOSE FEEDTUBE PRN (00:13)
[2020-10-16] MEDS: IPRATROPIUM/ALBUTEROL SULFATE 3 ML AMPUL.NEB IH SCH ×3 (01:13→17:59)
[2020-10-16] MEDS: INSULIN REGULAR, HUMAN 100 UNIT/ML 3ML VIAL SUB-Q SCH ×6 (02:01→21:51)
[2020-10-16] MEDS: VANCOMYCIN 250 MG/10 ML ORAL LIQD PO SCH ×4 (02:39→20:09)
[2020-10-16] MEDS: dexmedeTOMIDine 1,000 MCG in SODIUM CHLORIDE 0.9% 250ML 250 ML IV SCH ×5 (02:40→21:50)
[2020-10-16] MEDS: VANCOMYCIN 1,750 MG in SODIUM CHLORIDE 0.9% 500 ML 500 ML IV SCH ×2 (02:40→16:13)
[2020-10-16] MEDS: metroNIDAZOLE/NS 500 MG/100 ML 500 MG/100 ML BAG IV SCH ×3 (04:22→21:50)
[2020-10-16] MEDS: SODIUM BICARBONATE 650 MG TAB PO SCH ×3 (08:01→20:09)
[2020-10-16] MEDS: busPIRone 5 MG TAB PO SCH ×2 (09:30→21:51)
[2020-10-16] MEDS: CEFEPIME/NS 2 GM/100 ML 2 GM/100 ML BAG IV SCH ×2 (09:30→21:51)
[2020-10-16] MEDS: FAMOTIDINE 20 MG TAB PO SCH ×2 (09:30→21:51)
[2020-10-16] MEDS: busPIRone 10 MG TAB PO SCH ×2 (09:31→21:51)
[2020-10-16] MEDS: TOPIRAMATE TAB 25 MG TAB PO SCH ×2 (09:31→21:51)
--- NOTE | 2020-10-16 09:37 | Progress Note ---
Assessment and Plan 30 y/o female with Eclampsia, s/p emergent section with DIC, acute respiratory failure and worsening renal function. 10/16/20: Needs a different consent for CT of abdomen and pelvis. I have signed the one in the chart. The nurse who obtained the first consent did obtain consent for contrast, it just wasn't listed on the that consent. Await neurology input on EEG vs MRI findings. Patient has now been intubated 14 days. Need to have family meeting to discuss goals of care but I suspect family will want to hear from Neurology as well. Tolerating PSV trials but will only do briefly as patient is not a candidate for extubation today. Will increase labetalol to 200 TID based on MRI report. Overall prognosis is guarded to poor. 10/15/2020: MRI and CT's today. Continue Precedex and PRN fent pushes. ID ordered C. Diff test. Continue D10 and tube feeds. Continue vent support. Suspect patient will need trach and peg. 10/14/2020: Await MRI. Continue Precedex and only use PRN fent pushes. CM s tates that there is a . Now with persistent fever, will obtain CT abdomen pelvis with contrast to see if source for fevers can be found. Continue D10 as sugars are still not elevated. 10/12/2020: Patient seen on 10/12 but note entered late. Formal neurology consult today. Hold all sedation if possible and only use precedex. CM to find out if there is truly a or if the decisions would fall on mother as I do not know the ages of her children but I don't think they are of age to make decisions. Guarded prognosis given mental state. 10/08/2020: Will start patient on precedex today. Plan is to wean off fent drip. Will increase buspar to BID. Need to see patient on as little sedation as possible to determine neurological status. EEG has still not been read. Mag stopped yesterday. Largest concern now is neurologic function. 10/07/2020: Head CT unremarkable. Await EEG to be read. Will stop mag Drip. If seizures occur then will load with Keppra and start BID dosing of this. Appreciate OB note. Continue D10 as sugars are still not severely elevated until feeds are at goal. PRN ativan present as well. Will add dilaudid for pain control. Increased BB to TID and added PRN hydralazine 10/06/2020: Stat Head CT today. Likely needs EEG. Will order. Continue Mag drip and follow up levels. Continue feeds. Continue to wean FiO2 as tolerated. Hold sedatives but can give PRN ativan as needed for seizure activity. Continue D10 as Tube feeds are not at goal yet. Guarded prognosis with mental state. 10/05/2020: Feed today. Stop Albumin and Abx. Will stop D10 once feeds start but will continue q2 hour FSBS until 3 consecutive >180. H/H stable. Will continue to aggressively wean FiO2. Patient has a 6.5 tube that will likely impede PSV trials given her size so will attempt to change out. Also will restart her home meds for anxiety and chronic migraine therapy. Prognosis is still guarded but promising given her hemodynamic stability. Continue chowdhury for accurate urine out put. 10/04/2020: Much improved today. Still very ill however. Down to just one pressor. Still with good urine output. Await chemistry results from this am. Likely can stop Bicarb drip given improvement in pH but would like to see bicarb on blood work. Agree with continued transfusion of blood products. Needs fibrinongen levels as well as repeat coags. I cannot see the standing orders on my screen so will call down to lab and let them know what's needed. I know she has had at leas 2 cryo's but I am not exactly sure if the count is accurate in the computer in regards to PRBC's and FFP's. Platelets lower this am but still greater than 30K. Continue chowdhury for I/O measurement. Will start to wean FiO2 on vent. CXR looks like edema but oxygenation is stable right now. Resuscitation is the most important thing right now. Will continue abx therapy at least 24 more hours. Prognosis is still very guarded but patient showing signs of improvement. 1. CV-Extremely volume deplete as well as intrasvascular depletion. Will continue to bolus with LR and saline as needed. Will add Albumin to help with intravascular volume. Spoke with OB attending over phone yesterday. No acute indication for steroids at this time. Serial H/H's given maximum pressor requirements. Will transfuse to keep up with AVINASH drain and help with weaning. Severely acidotic but improving. Likely adding to pressor requirement. GOAL is map of 65 and will wean accordingly. Will start to wean Sohail first. Ordered art line as well. 2. Heme-DIC secondary to Eclampsia, possible sepsis but white count could be stress related. Will continue to transfuse PRBC's and FFP with Cryo as needed. Follow Fibrinogen levels. Tele Heme has been consulted and note reviewed. Will give one cryo for every 6 units of PRBC's transfused. has gotten one cryo, awaiting the other to thaw out. Plts at 72K right now. Hold on further transfusion. May need to consider Factor VII if execessive bleeding continues. Will also put on broad spec abx therapy incase of possible sepsis causing DIC. Hopeful with correction of coaguloapthy she will improve. 3. Very very guarded prognosis. Will continue aggressive resuscitation. Family to come visit given exceptional case and extremely guarded prognosis. CCT 31 minutes. Subjective Date of service: 10/16/20 Principal diagnosis: Eclampsia/HELLP Syndrome, ADOLPH, DIC; s/p , s/p supracervical hyst Interval history: Remains unresponsive. MRI suggestive of PRES based on radiology read. EEG suggest severe encephalopathy thought to be consistent with anoxia. BP's have been elevated but easily controlled. NO seizure like activity. Awaiting neurology input on this. Continues to have profuse diarrhea. Continues to be febrile. CT not done as consent was incorrect. Objective Vital Signs - 12hr 10/15/20 10/15/20 10/15/20 21:45 22:01 22:15 Temperature Pulse Rate 84 81 81 Pulse Rate [ Anterior Bilateral Throughout] Pulse Rate [ From Monitor] Respiratory 26 H 22 23 Rate Respiratory Rate [Anterior Bilateral Throughout] Blood Pressure 159/98 150/101 167/90 O2 Sat by Pulse 100 100 100 Oximetry 10/15/20 10/15/20 10/15/20 22:30 22:45 23:01 Temperature Pulse Rate 87 95 H 83 Pulse Rate [ Anterior Bilateral Throughout] Pulse Rate [ From Monitor] Respiratory 29 H 33 H 27 H Rate Respiratory Rate [Anterior Bilateral Throughout] Blood Pressure 158/90 171/93 171/93 O2 Sat by Pulse 100 100 Oximetry 10/15/20 10/15/20 10/15/20 23:15 23:31 23:45 Temperature Pulse Rate 84 88 79 Pulse Rate [ Anterior Bilateral Throughout] Pulse Rate [ From Monitor] Respiratory 29 H 26 H 24 Rate Respiratory Rate [Anterior Bilateral Throughout] Blood Pressure 171/93 168/84 158/82 O2 Sat by Pulse 100 100 100 Oximetry 10/16/20 10/16/20 10/16/20 00:00 00:15 00:30 Temperature 100.9 F H Pulse Rate 91 H 97 H 82 Pulse Rate [ Anterior Bilateral Throughout] Pulse Rate [ 89 From Monitor] Respiratory 28 H 32 H 19 Rate Respiratory Rate [Anterior Bilateral Throughout] Blood Pressure 154/78 167/106 179/84 O2 Sat by Pulse 99 100 100 Oximetry 10/16/20 10/16/20 10/16/20 00:45 01:00 01:14 Temperature Pulse Rate 90 83 Pulse Rate [ 79 Anterior Bilateral Throughout] Pulse Rate [ From Monitor] Respiratory 26 H 24 Rate Respiratory 24 Rate [Anterior Bilateral Throughout] Blood Pressure 179/84 136/70 O2 Sat by Pulse 99 99 Oximetry 10/16/20 10/16/20 10/16/20 01:15 01:30 01:45 Temperature Pulse Rate 80 79 77 Pulse Rate [ Anterior Bilateral Throughout] Pulse Rate [ From Monitor] Respiratory 20 21 22 Rate Respiratory Rate [Anterior Bilateral Throughout] Blood Pressure 128/72 130/70 126/71 O2 Sat by Pulse 99 100 98 Oximetry 10/16/20 10/16/20 10/16/20 02:00 02:15 02:30 Temperature Pulse Rate 77 75 75 Pulse Rate [ Anterior Bilateral Throughout] Pulse Rate [ From Monitor] Respiratory 23 22 24 Rate Respiratory Rate [Anterior Bilateral Throughout] Blood Pressure 128/70 124/73 129/71 O2 Sat by Pulse 99 100 99 Oximetry 10/16/20 10/16/20 10/16/20 02:45 03:00 03:15 Temperature Pulse Rate 76 75 76 Pulse Rate [ Anterior Bilateral Throughout] Pulse Rate [ From Monitor] Respiratory 21 23 24 Rate Respiratory Rate [Anterior Bilateral Throughout] Blood Pressure 132/77 137/76 130/73 O2 Sat by Pulse 99 100 99 Oximetry 10/16/20 10/16/20 10/16/20 03:30 03:45 04:00 Temperature 99 F Pulse Rate 77 76 78 Pulse Rate [ Anterior Bilateral Throughout] Pulse Rate [ 79 From Monitor] Respiratory 22 22 22 Rate Respiratory Rate [Anterior Bilateral Throughout] Blood Pressure 139/76 138/69 146/78 O2 Sat by Pulse 100 99 100 Oximetry 10/16/20 10/16/20 10/16/20 04:15 04:30 04:43 Temperature Pulse Rate 77 78 86 Pulse Rate [ Anterior Bilateral Throughout] Pulse Rate [ From Monitor] Respiratory 23 23 Rate Respiratory Rate [Anterior Bilateral Throughout] Blood Pressure 130/69 137/78 137/78 O2 Sat by Pulse 100 99 100 Oximetry 10/16/20 10/16/20 10/16/20 04:45 05:00 05:15 Temperature Pulse Rate 86 81 82 Pulse Rate [ Anterior Bilateral Throughout] Pulse Rate [ From Monitor] Respiratory 21 23 22 Rate Respiratory Rate [Anterior Bilateral Throughout] Blood Pressure 134/84 136/79 136/79 O2 Sat by Pulse 99 100 99 Oximetry 10/16/20 10/16/20 10/16/20 05:30 05:45 06:00 Temperature Pulse Rate 84 78 76 Pulse Rate [ Anterior Bilateral Throughout] Pulse Rate [ From Monitor] Respiratory 25 H 22 24 Rate Respiratory Rate [Anterior Bilateral Throughout] Blood Pressure 147/83 141/80 143/83 O2 Sat by Pulse 100 100 100 Oximetry 10/16/20 10/16/20 10/16/20 06:15 06:30 06:45 Temperature Pulse Rate 79 81 78 Pulse Rate [ Anterior Bilateral Throughout] Pulse Rate [ From Monitor] Respiratory 25 H 23 24 Rate Respiratory Rate [Anterior Bilateral Throughout] Blood Pressure 136/87 142/85 141/89 O2 Sat by Pulse 100 100 100 Oximetry 10/16/20 10/16/20 10/16/20 08:00 08:32 08:36 Temperature Pulse Rate 82 83 83 Pulse Rate [ Anterior Bilateral Throughout] Pulse Rate [ From Monitor] Respiratory 28 H Rate Respiratory Rate [Anterior Bilateral Throughout] Blood Pressure 143/98 150/88 150/88 O2 Sat by Pulse 100 100 Oximetry 10/16/20 08:39 Temperature Pulse Rate Pulse Rate [ 94 H Anterior Bilateral Throughout] Pulse Rate [ From Monitor] Respiratory Rate Respiratory 22 Rate [Anterior Bilateral Throughout] Blood Pressure O2 Sat by Pulse Oximetry Constitutional: comatose, other (critically ill on ventilator) Eyes: non-icteric ENT: oropharynx moist, other (orally intubated and not sedated) Neck: other (large in cirumference) Effort: normal Ascultation: Bilateral: clear, diminished breath sounds, other (coarse BS bilaterally w/ mild faint wheezes) Percussion: Bilateral: not dull Cardiovascular: regular rate and rhythm, other (no mrg) Gastrointestinal: normoactive bowel sounds, soft, other (post surgical changes with drain on the left side) Extremities: no cyanosis, pink and warm, anasarca Neurologic: other (unresponsive, not following commands, not tracking) Psychiatric: other (unable to assess) CBC and BMP: 10/15/20 05:50 10/15/20 05:50 ABG, PT/INR, D-dimer: ABG ABG pH 7.473 (7.320-7.450) H 10/13/20 07:18 POC ABG pCO2 20.7 mmHg (32.0-48.0) L 10/13/20 07:18 ABG pCO2 25.0 mm Hg 10/10/20 04:42 POC ABG pO2 137.9 mmHg (83-108) H 10/13/20 07:18 ABG pO2 95.2 mm Hg (80.0-90.0) H 10/10/20 04:42 POC ABG HCO3 14.8 10/13/20 07:18 ABG O2 Saturation 97.9 % (95.0-99.0) 10/10/20 04:42 PT/INR, D-dimer PT 13.0 Sec. (12.2-14.9) 10/05/20 05:00 INR 1.00 (0.87-1.13) 10/05/20 05:00 D-Dimer > 28964 ng/mlDDU (0-234) H 10/04/20 10:00 Abnormal lab findings: Abnormal Labs 10/02/20 10/02/20 10/02/20 12:03 12:18 12:18 WBC 14.9 H RBC Hgb 9.1 L Hct MCV MCH 22 L MCHC 28 L RDW 17.6 H Plt Count 102 L Lymph % (Auto) [place] % (Auto) Lymph # (Auto) [place] # (Auto) Seg Neutrophils % Seg Neuts % (Manual) 36.0 L Lymphocytes % (Manual) 49.0 H Monocytes % (Manual) Nucleated RBC % 6.0 H Seg Neutrophils # Seg Neutrophils # Man Lymphocytes # (Manual) 7.3 H Monocytes # (Manual) PT INR APTT Fibrinogen D-Dimer ABG pH POC ABG pCO2 POC ABG pO2 ABG pO2 ABG HCO3 ABG Base Excess ABG Hemoglobin ABG Oxyhemoglobin ABG Sodium ABG Potassium ABG Chloride ABG Glucose VBG pH Oxyhemoglobin Carboxyhemoglobin Sodium 134 L Potassium Chloride Carbon Dioxide 12 L BUN 6 L Creatinine Glucose 390 H POC Glucose 451 H Lactic Acid Calcium Ionized Calcium Magnesium AST 135 H ALT 85 H Alkaline Phosphatase 172 H Lactate Dehydrogenase 641 H NT-Pro-B Natriuret Pep Total Protein 5.4 L Albumin 2.3 L Arterial Blood Glucose Arterial Blood Ionized Calcium Urine WBC (Auto) Phenytoin Crossmatch 10/02/20 10/02/20 10/02/20 12:50 13:05 13:05 WBC 38.6 H RBC Hgb 8.9 L Hct 29.0 L MCV 73 L MCH 22 L MCHC RDW 17.2 H Plt Count Lymph % (Auto) [place] % (Auto) Lymph # (Auto) [place] # (Auto) Seg Neutrophils % Seg Neuts % (Manual) Lymphocytes % (Manual) Monocytes % (Manual) Nucleated RBC % 2.0 H Seg Neutrophils # Seg Neutrophils # Man 20.1 H Lymphocytes # (Manual) 10.4 H Monocytes # (Manual) 2.3 H PT INR APTT Fibrinogen D-Dimer ABG pH POC ABG pCO2 POC ABG pO2 ABG pO2 ABG HCO3 ABG Base Excess ABG Hemoglobin ABG Oxyhemoglobin ABG Sodium ABG Potassium ABG Chloride ABG Glucose VBG pH Oxyhemoglobin Carboxyhemoglobin Sodium Potassium Chloride Carbon Dioxide BUN Creatinine Glucose POC Glucose Lactic Acid Calcium Ionized Calcium Magnesium AST 184 H ALT 113 H Alkaline Phosphatase Lactate Dehydrogenase 769 H NT-Pro-B Natriuret Pep Total Protein Albumin Arterial Blood Glucose Arterial Blood Ionized Calcium Urine WBC (Auto) Phenytoin Crossmatch See Detail 10/02/20 10/02/20 10/02/20 16:25 16:35 16:35 WBC RBC Hgb Hct MCV MCH MCHC RDW Plt Count Lymph % (Auto) [place] % (Auto) Lymph # (Auto) [place] # (Auto) Seg Neutrophils % Seg Neuts % (Manual) Lymphocytes % (Manual) Monocytes % (Manual) Nucleated RBC % Seg Neutrophils # Seg Neutrophils # Man Lymphocytes # (Manual) Monocytes # (Manual) PT INR APTT Fibrinogen D-Dimer ABG pH 7.031 L* POC ABG pCO2 POC ABG pO2 ABG pO2 116.8 H ABG HCO3 12.7 L ABG Base Excess -16.9 L ABG Hemoglobin 7.8 L ABG Oxyhemoglobin ABG Sodium ABG Potassium ABG Chloride ABG Glucose VBG pH Oxyhemoglobin 94.9 L Carboxyhemoglobin Sodium Potassium Chloride Carbon Dioxide BUN Creatinine Glucose 403 H POC Glucose Lactic Acid 11.40 H* Calcium 6.3 L D Ionized Calcium Magnesium AST 70 H ALT Alkaline Phosphatase Lactate Dehydrogenase NT-Pro-B Natriuret Pep Total Protein 1.9 L D Albumin 1.2 L Arterial Blood Glucose Arterial Blood Ionized Calcium Urine WBC (Auto) Phenytoin Crossmatch 10/02/20 10/02/20 10/02/20 18:18 18:18 22:30 WBC 11.5 H RBC 2.06 L Hgb 5.5 L* D Hct 17.3 L* D MCV MCH 27 L MCHC RDW 19.5 H Plt Count 60 L Lymph % (Auto) [place] % (Auto) Lymph # (Auto) [place] # (Auto) Seg Neutrophils % Seg Neuts % (Manual) Lymphocytes % (Manual) 8.0 L Monocytes % (Manual) 8.0 H Nucleated RBC % 8.0 H Seg Neutrophils # Seg Neutrophils # Man Lymphocytes # (Manual) 0.9 L Monocytes # (Manual) 0.9 H PT 37.1 H INR 3.71 H APTT 135.8 H* Fibrinogen D-Dimer ABG pH 7.067 L* POC ABG pCO2 POC ABG pO2 ABG pO2 183.0 H ABG HCO3 14.1 L ABG Base Excess -15.1 L ABG Hemoglobin 7.7 L ABG Oxyhemoglobin ABG Sodium ABG Potassium ABG Chloride ABG Glucose VBG pH Oxyhemoglobin Carboxyhemoglobin Sodium Potassium Chloride Carbon Dioxide BUN Creatinine Glucose POC Glucose Lactic Acid Calcium Ionized Calcium Magnesium AST ALT Alkaline Phosphatase Lactate Dehydrogenase NT-Pro-B Natriuret Pep Total Protein Albumin Arterial Blood Glucose Arterial Blood Ionized Calcium Urine WBC (Auto) Phenytoin Crossmatch 10/02/20 10/02/20 10/03/20 Unknown Unknown 00:01 WBC RBC Hgb Hct MCV MCH MCHC RDW Plt Count Lymph % (Auto) [place] % (Auto) Lymph # (Auto) [place] # (Auto) Seg Neutrophils % Seg Neuts % (Manual) Lymphocytes % (Manual) Monocytes % (Manual) Nucleated RBC % Seg Neutrophils # Seg Neutrophils # Man Lymphocytes # (Manual) Monocytes # (Manual) PT 61.1 H INR 6.92 H* APTT 158.7 H* Fibrinogen < 60 L* D-Dimer > 33584 H ABG pH POC ABG pCO2 POC ABG pO2 ABG pO2 ABG HCO3 ABG Base Excess ABG Hemoglobin ABG Oxyhemoglobin ABG Sodium ABG Potassium ABG Chloride ABG Glucose VBG pH 6.949 L* Oxyhemoglobin Carboxyhemoglobin Sodium Potassium Chloride Carbon Dioxide BUN Creatinine Glucose POC Glucose 196 H Lactic Acid Calcium Ionized Calcium Magnesium AST ALT Alkaline Phosphatase Lactate Dehydrogenase NT-Pro-B Natriuret Pep Total Protein Albumin Arterial Blood Glucose Arterial Blood Ionized Calcium Urine WBC (Auto) Phenytoin Crossmatch 10/03/20 10/03/20 10/03/20 00:40 00:40 00:40 WBC RBC Hgb Hct MCV MCH MCHC RDW Plt Count Lymph % (Auto) [place] % (Auto) Lymph # (Auto) [place] # (Auto) Seg Neutrophils % Seg Neuts % (Manual) Lymphocytes % (Manual) Monocytes % (Manual) Nucleated RBC % Seg Neutrophils # Seg Neutrophils # Man Lymphocytes # (Manual) Monocytes # (Manual) PT 15.1 H INR 1.21 H APTT Fibrinogen D-Dimer ABG pH POC ABG pCO2 POC ABG pO2 ABG pO2 ABG HCO3 ABG Base Excess ABG Hemoglobin ABG Oxyhemoglobin ABG Sodium ABG Potassium ABG Chloride ABG Glucose VBG pH Oxyhemoglobin Carboxyhemoglobin Sodium 136 L Potassium Chloride Carbon Dioxide BUN Creatinine 1.6 H D Glucose 106 H POC Glucose Lactic Acid 5.60 H* Calcium 6.5 L Ionized Calcium Magnesium AST 232 H ALT 104 H Alkaline Phosphatase Lactate Dehydrogenase NT-Pro-B Natriuret Pep Total Protein 3.9 L D Albumin 2.4 L Arterial Blood Glucose Arterial Blood Ionized Calcium Urine WBC (Auto) Phenytoin Crossmatch 10/03/20 10/03/20 10/03/20 02:08 02:08 02:08 WBC 17.6 H RBC 3.27 L Hgb 9.9 L D Hct 29.9 L D MCV MCH MCHC RDW 16.5 H Plt Count 75 L Lymph % (Auto) [place] % (Auto) Lymph # (Auto) [place] # (Auto) Seg Neutrophils % Seg Neuts % (Manual) 76.0 H Lymphocytes % (Manual) Monocytes % (Manual) Nucleated RBC % 8.0 H Seg Neutrophils # Seg Neutrophils # Man 13.4 H Lymphocytes # (Manual) Monocytes # (Manual) PT INR APTT Fibrinogen D-Dimer ABG pH POC ABG pCO2 POC ABG pO2 ABG pO2 ABG HCO3 ABG Base Excess ABG Hemoglobin ABG Oxyhemoglobin ABG Sodium ABG Potassium ABG Chloride ABG Glucose VBG pH Oxyhemoglobin Carboxyhemoglobin Sodium Potassium Chloride Carbon Dioxide 19 L BUN Creatinine 1.4 H Glucose 306 H POC Glucose Lactic Acid 10.50 H* Calcium 6.4 L Ionized Calcium Magnesium AST ALT Alkaline Phosphatase Lactate Dehydrogenase NT-Pro-B Natriuret Pep Total Protein Albumin Arterial Blood Glucose Arterial Blood Ionized Calcium Urine WBC (Auto) Phenytoin Crossmatch 10/03/20 10/03/20 10/03/20 02:42 03:59 05:31 WBC RBC Hgb Hct MCV MCH MCHC RDW Plt Count Lymph % (Auto) [place] % (Auto) Lymph # (Auto) [place] # (Auto) Seg Neutrophils % Seg Neuts % (Manual) Lymphocytes % (Manual) Monocytes % (Manual) Nucleated RBC % Seg Neutrophils # Seg Neutrophils # Man Lymphocytes # (Manual) Monocytes # (Manual) PT INR APTT Fibrinogen D-Dimer ABG pH 7.144 L POC ABG pCO2 54.4 H POC ABG pO2 ABG pO2 ABG HCO3 ABG Base Excess ABG Hemoglobin 10.0 L ABG Oxyhemoglobin ABG Sodium ABG Potassium ABG Chloride 108.0 H ABG Glucose 306 H VBG pH Oxyhemoglobin Carboxyhemoglobin Sodium Potassium Chloride Carbon Dioxide BUN Creatinine Glucose POC Glucose 209 H Lactic Acid 9.20 H* Calcium Ionized Calcium Magnesium AST ALT Alkaline Phosphatase Lactate Dehydrogenase NT-Pro-B Natriuret Pep Total Protein Albumin Arterial Blood Glucose 306 H Arterial Blood Ionized Calcium 3.7 L Urine WBC (Auto) Phenytoin Crossmatch 10/03/20 10/03/20 10/03/20 09:00 09:00 09:00 WBC 27.4 H RBC 2.84 L Hgb 8.5 L Hct 25.1 L MCV MCH MCHC RDW 16.1 H Plt Count 72 L Lymph % (Auto) [place] % (Auto) Lymph # (Auto) [place] # (Auto) Seg Neutrophils % Seg Neuts % (Manual) Lymphocytes % (Manual) 11.0 L Monocytes % (Manual) Nucleated RBC % 3.0 H Seg Neutrophils # Seg Neutrophils # Man 18.4 H Lymphocytes # (Manual) Monocytes # (Manual) 1.9 H PT INR APTT Fibrinogen D-Dimer ABG pH POC ABG pCO2 POC ABG pO2 ABG pO2 ABG HCO3 ABG Base Excess ABG Hemoglobin ABG Oxyhemoglobin ABG Sodium ABG Potassium ABG Chloride ABG Glucose VBG pH Oxyhemoglobin Carboxyhemoglobin Sodium Potassium Chloride Carbon Dioxide BUN Creatinine 1.7 H Glucose 216 H POC Glucose Lactic Acid 9.20 H* Calcium 6.3 L Ionized Calcium Magnesium AST 331 H ALT 171 H Alkaline Phosphatase Lactate Dehydrogenase NT-Pro-B Natriuret Pep Total Protein 3.7 L Albumin 1.9 L Arterial Blood Glucose Arterial Blood Ionized Calcium Urine WBC (Auto) Phenytoin Crossmatch 10/03/20 10/03/20 10/03/20 11:20 11:46 11:50 WBC 28.7 H RBC 2.67 L Hgb 8.0 L Hct 23.7 L MCV MCH MCHC RDW 16.6 H Plt Count 76 L Lymph % (Auto) [place] % (Auto) Lymph # (Auto) [place] # (Auto) Seg Neutrophils % Seg Neuts % (Manual) Lymphocytes % (Manual) Monocytes % (Manual) Nucleated RBC % Seg Neutrophils # Seg Neutrophils # Man Lymphocytes # (Manual) Monocytes # (Manual) PT INR APTT Fibrinogen D-Dimer ABG pH POC ABG pCO2 POC ABG pO2 ABG pO2 ABG HCO3 ABG Base Excess ABG Hemoglobin ABG Oxyhemoglobin ABG Sodium ABG Potassium ABG Chloride ABG Glucose VBG pH Oxyhemoglobin Carboxyhemoglobin Sodium Potassium Chloride Carbon Dioxide BUN Creatinine Glucose POC Glucose 125 H Lactic Acid 8.00 H* Calcium Ionized Calcium Magnesium AST ALT Alkaline Phosphatase Lactate Dehydrogenase NT-Pro-B Natriuret Pep Total Protein Albumin Arterial Blood Glucose Arterial Blood Ionized Calcium Urine WBC (Auto) Phenytoin Crossmatch 10/03/20 10/04/20 10/04/20 11:50 00:40 00:40 WBC RBC Hgb 6.8 L Hct 19.4 L* MCV MCH MCHC RDW Plt Count 49 L Lymph % (Auto) [place] % (Auto) Lymph # (Auto) [place] # (Auto) Seg Neutrophils % Seg Neuts % (Manual) Lymphocytes % (Manual) Monocytes % (Manual) Nucleated RBC % Seg Neutrophils # Seg Neutrophils # Man Lymphocytes # (Manual) Monocytes # (Manual) PT INR APTT Fibrinogen D-Dimer ABG pH 7.244 L POC ABG pCO2 POC ABG pO2 ABG pO2 ABG HCO3 ABG Base Excess -4.5 L ABG Hemoglobin 7.3 L ABG Oxyhemoglobin ABG Sodium ABG Potassium ABG Chloride ABG Glucose VBG pH Oxyhemoglobin Carboxyhemoglobin Sodium Potassium Chloride Carbon Dioxide BUN Creatinine Glucose POC Glucose Lactic Acid Calcium Ionized Calcium Magnesium AST ALT Alkaline Phosphatase Lactate Dehydrogenase NT-Pro-B Natriuret Pep Total Protein Albumin Arterial Blood Glucose Arterial Blood Ionized Calcium Urine WBC (Auto) Phenytoin Crossmatch 10/04/20 10/04/20 10/04/20 03:53 10:00 10:00 WBC 14.6 H RBC 2.57 L Hgb 7.6 L Hct 22.5 L MCV MCH MCHC RDW 15.8 H Plt Count 38 L Lymph % (Auto) 7.7 L [place] % (Auto) Lymph # (Auto) 1.1 L [place] # (Auto) 0.9 H Seg Neutrophils % 85.6 H Seg Neuts % (Manual) Lymphocytes % (Manual) Monocytes % (Manual) Nucleated RBC % Seg Neutrophils # 12.5 H Seg Neutrophils # Man Lymphocytes # (Manual) Monocytes # (Manual) PT INR APTT Fibrinogen D-Dimer ABG pH POC ABG pCO2 POC ABG pO2 110.6 H ABG pO2 ABG HCO3 ABG Base Excess ABG Hemoglobin 6.7 L ABG Oxyhemoglobin ABG Sodium 132.0 L ABG Potassium ABG Chloride ABG Glucose 111 H VBG pH Oxyhemoglobin Carboxyhemoglobin Sodium 134 L D Potassium Chloride 97.6 L Carbon Dioxide BUN Creatinine 1.7 H Glucose POC Glucose Lactic Acid Calcium 6.3 L Ionized Calcium Magnesium AST 203 H ALT 81 H Alkaline Phosphatase Lactate Dehydrogenase NT-Pro-B Natriuret Pep Total Protein 3.9 L Albumin 2.3 L Arterial Blood Glucose 111 H Arterial Blood Ionized Calcium 3.5 L Urine WBC (Auto) Phenytoin Crossmatch 10/04/20 10/04/20 10/04/20 10:00 10:00 10:14 WBC RBC Hgb Hct MCV MCH MCHC RDW Plt Count Lymph % (Auto) [place] % (Auto) Lymph # (Auto) [place] # (Auto) Seg Neutrophils % Seg Neuts % (Manual) Lymphocytes % (Manual) Monocytes % (Manual) Nucleated RBC % Seg Neutrophils # Seg Neutrophils # Man Lymphocytes # (Manual) Monocytes # (Manual) PT INR APTT Fibrinogen D-Dimer > 63766 H ABG pH POC ABG pCO2 POC ABG pO2 ABG pO2 ABG HCO3 ABG Base Excess ABG Hemoglobin ABG Oxyhemoglobin ABG Sodium ABG Potassium ABG Chloride ABG Glucose VBG pH Oxyhemoglobin Carboxyhemoglobin Sodium Potassium Chloride Carbon Dioxide BUN Creatinine Glucose POC Glucose Lactic Acid 3.90 H* Calcium Ionized Calcium Magnesium AST ALT Alkaline Phosphatase Lactate Dehydrogenase NT-Pro-B Natriuret Pep 2788 H Total Protein Albumin Arterial Blood Glucose Arterial Blood Ionized Calcium Urine WBC (Auto) Phenytoin Crossmatch 10/04/20 10/04/20 10/04/20 14:00 14:00 18:00 WBC 15.7 H RBC 3.17 L Hgb 9.3 L 9.6 L Hct 27.2 L 28.0 L MCV MCH MCHC RDW 16.9 H Plt Count 41 L Lymph % (Auto) 8.6 L [place] % (Auto) Lymph # (Auto) [place] # (Auto) 0.9 H Seg Neutrophils % 85.4 H Seg Neuts % (Manual) Lymphocytes % (Manual) Monocytes % (Manual) Nucleated RBC % Seg Neutrophils # 13.4 H Seg Neutrophils # Man Lymphocytes # (Manual) Monocytes # (Manual) PT INR APTT Fibrinogen D-Dimer ABG pH POC ABG pCO2 POC ABG pO2 ABG pO2 ABG HCO3 ABG Base Excess ABG Hemoglobin ABG Oxyhemoglobin ABG Sodium ABG Potassium ABG Chloride ABG Glucose VBG pH Oxyhemoglobin Carboxyhemoglobin Sodium 133 L Potassium Chloride 96.4 L Carbon Dioxide BUN 18 H Creatinine 1.7 H Glucose POC Glucose Lactic Acid Calcium 6.3 L Ionized Calcium Magnesium AST ALT Alkaline Phosphatase Lactate Dehydrogenase NT-Pro-B Natriuret Pep Total Protein Albumin Arterial Blood Glucose Arterial Blood Ionized Calcium Urine WBC (Auto) Phenytoin Crossmatch 10/04/20 10/04/20 10/05/20 18:00 22:00 05:00 WBC 17.6 H RBC 3.34 L Hgb 9.9 L Hct 29.4 L MCV MCH MCHC RDW 17.1 H Plt Count 56 L Lymph % (Auto) 8.5 L [place] % (Auto) Lymph # (Auto) [place] # (Auto) 1.0 H Seg Neutrophils % 85.1 H Seg Neuts % (Manual) Lymphocytes % (Manual) Monocytes % (Manual) Nucleated RBC % Seg Neutrophils # 15.0 H Seg Neutrophils # Man Lymphocytes # (Manual) Monocytes # (Manual) PT INR APTT Fibrinogen D-Dimer ABG pH POC ABG pCO2 POC ABG pO2 ABG pO2 ABG HCO3 ABG Base Excess ABG Hemoglobin ABG Oxyhemoglobin ABG Sodium ABG Potassium ABG Chloride ABG Glucose VBG pH Oxyhemoglobin Carboxyhemoglobin Sodium 136 L Potassium Chloride Carbon Dioxide BUN 18 H Creatinine 1.7 H Glucose POC Glucose Lactic Acid 2.30 H* Calcium 6.6 L Ionized Calcium Magnesium AST ALT Alkaline Phosphatase Lactate Dehydrogenase NT-Pro-B Natriuret Pep Total Protein Albumin Arterial Blood Glucose Arterial Blood Ionized Calcium Urine WBC (Auto) Phenytoin Crossmatch 10/05/20 10/05/20 10/05/20 05:00 05:00 05:03 WBC RBC Hgb Hct MCV MCH MCHC RDW Plt Count Lymph % (Auto) [place] % (Auto) Lymph # (Auto) [place] # (Auto) Seg Neutrophils % Seg Neuts % (Manual) Lymphocytes % (Manual) Monocytes % (Manual) Nucleated RBC % Seg Neutrophils # Seg Neutrophils # Man Lymphocytes # (Manual) Monocytes # (Manual) PT INR APTT Fibrinogen D-Dimer ABG pH 7.458 H POC ABG pCO2 POC ABG pO2 ABG pO2 74.3 L ABG HCO3 27.5 H ABG Base Excess 3.4 H ABG Hemoglobin 10.0 L ABG Oxyhemoglobin ABG Sodium ABG Potassium ABG Chloride ABG Glucose VBG pH Oxyhemoglobin 94.9 L Carboxyhemoglobin Sodium Potassium Chloride Carbon Dioxide BUN 19 H Creatinine 1.8 H Glucose POC Glucose Lactic Acid Calcium 6.8 L Ionized Calcium 3.9 L Magnesium AST 225 H ALT 85 H Alkaline Phosphatase Lactate Dehydrogenase NT-Pro-B Natriuret Pep Total Protein 4.5 L Albumin 2.7 L Arterial Blood Glucose Arterial Blood Ionized Calcium Urine WBC (Auto) Phenytoin Crossmatch 10/05/20 10/05/20 10/05/20 10:10 15:00 19:40 WBC RBC Hgb Hct MCV MCH MCHC RDW Plt Count Lymph % (Auto) [place] % (Auto) Lymph # (Auto) [place] # (Auto) Seg Neutrophils % Seg Neuts % (Manual) Lymphocytes % (Manual) Monocytes % (Manual) Nucleated RBC % Seg Neutrophils # Seg Neutrophils # Man Lymphocytes # (Manual) Monocytes # (Manual) PT INR APTT Fibrinogen D-Dimer ABG pH POC ABG pCO2 POC ABG pO2 ABG pO2 ABG HCO3 ABG Base Excess ABG Hemoglobin ABG Oxyhemoglobin ABG Sodium ABG Potassium ABG Chloride ABG Glucose VBG pH Oxyhemoglobin Carboxyhemoglobin Sodium Potassium 3.5 L Chloride Carbon Dioxide 31 H 32 H BUN 19 H 19 H Creatinine 1.8 H 1.8 H Glucose POC Glucose Lactic Acid Calcium 7.0 L 7.2 L Ionized Calcium Magnesium 2.90 H AST ALT Alkaline Phosphatase Lactate Dehydrogenase NT-Pro-B Natriuret Pep Total Protein Albumin Arterial Blood Glucose Arterial Blood Ionized Calcium Urine WBC (Auto) Phenytoin Crossmatch 10/06/20 10/06/20 10/06/20 01:05 03:12 04:00 WBC 17.1 H RBC 3.47 L Hgb Hct MCV MCH MCHC RDW 17.4 H Plt Count 82 L Lymph % (Auto) 8.3 L [place] % (Auto) Lymph # (Auto) [place] # (Auto) 1.1 H Seg Neutrophils % 83.8 H Seg Neuts % (Manual) Lymphocytes % (Manual) Monocytes % (Manual) Nucleated RBC % Seg Neutrophils # 14.3 H Seg Neutrophils # Man Lymphocytes # (Manual) Monocytes # (Manual) PT INR APTT Fibrinogen D-Dimer ABG pH 7.474 H POC ABG pCO2 POC ABG pO2 129.5 H ABG pO2 ABG HCO3 ABG Base Excess ABG Hemoglobin 11.4 L ABG Oxyhemoglobin ABG Sodium 131.8 L ABG Potassium ABG Chloride ABG Glucose 103 H VBG pH Oxyhemoglobin Carboxyhemoglobin 0.3 L Sodium Potassium Chloride Carbon Dioxide BUN Creatinine Glucose POC Glucose Lactic Acid Calcium Ionized Calcium Magnesium 3.70 H AST ALT Alkaline Phosphatase Lactate Dehydrogenase NT-Pro-B Natriuret Pep Total Protein Albumin Arterial Blood Glucose 103 H Arterial Blood Ionized Calcium 4.2 L Urine WBC (Auto) Phenytoin Crossmatch 10/06/20 10/06/20 10/06/20 04:00 05:31 08:12 WBC RBC Hgb Hct MCV MCH MCHC RDW Plt Count Lymph % (Auto) [place] % (Auto) Lymph # (Auto) [place] # (Auto) Seg Neutrophils % Seg Neuts % (Manual) Lymphocytes % (Manual) Monocytes % (Manual) Nucleated RBC % Seg Neutrophils # Seg Neutrophils # Man Lymphocytes # (Manual) Monocytes # (Manual) PT INR APTT Fibrinogen D-Dimer ABG pH POC ABG pCO2 POC ABG pO2 ABG pO2 ABG HCO3 ABG Base Excess ABG Hemoglobin ABG Oxyhemoglobin ABG Sodium ABG Potassium ABG Chloride ABG Glucose VBG pH Oxyhemoglobin Carboxyhemoglobin Sodium Potassium 3.5 L Chloride Carbon Dioxide BUN 19 H Creatinine 1.8 H Glucose 102 H POC Glucose 116 H Lactic Acid Calcium 7.2 L Ionized Calcium Magnesium 5.40 H AST 307 H ALT 137 H Alkaline Phosphatase Lactate Dehydrogenase NT-Pro-B Natriuret Pep Total Protein 4.5 L Albumin 2.6 L Arterial Blood Glucose Arterial Blood Ionized Calcium Urine WBC (Auto) Phenytoin Crossmatch 10/06/20 10/06/20 10/06/20 11:00 11:50 20:13 WBC RBC Hgb Hct MCV MCH MCHC RDW Plt Count Lymph % (Auto) [place] % (Auto) Lymph # (Auto) [place] # (Auto) Seg Neutrophils % Seg Neuts % (Manual) Lymphocytes % (Manual) Monocytes % (Manual) Nucleated RBC % Seg Neutrophils # Seg Neutrophils # Man Lymphocytes # (Manual) Monocytes # (Manual) PT INR APTT Fibrinogen D-Dimer ABG pH POC ABG pCO2 POC ABG pO2 ABG pO2 ABG HCO3 ABG Base Excess ABG Hemoglobin ABG Oxyhemoglobin ABG Sodium ABG Potassium ABG Chloride ABG Glucose VBG pH Oxyhemoglobin Carboxyhemoglobin Sodium Potassium Chloride Carbon Dioxide BUN Creatinine Glucose POC Glucose 106 H Lactic Acid Calcium Ionized Calcium Magnesium 6.50 H 6.20 H AST ALT Alkaline Phosphatase Lactate Dehydrogenase NT-Pro-B Natriuret Pep Total Protein Albumin Arterial Blood Glucose Arterial Blood Ionized Calcium Urine WBC (Auto) Phenytoin Crossmatch 10/06/20 10/06/20 10/06/20 20:17 22:29 23:57 WBC RBC Hgb Hct MCV MCH MCHC RDW Plt Count Lymph % (Auto) [place] % (Auto) Lymph # (Auto) [place] # (Auto) Seg Neutrophils % Seg Neuts % (Manual) Lymphocytes % (Manual) Monocytes % (Manual) Nucleated RBC % Seg Neutrophils # Seg Neutrophils # Man Lymphocytes # (Manual) Monocytes # (Manual) PT INR APTT Fibrinogen D-Dimer ABG pH POC ABG pCO2 POC ABG pO2 ABG pO2 ABG HCO3 ABG Base Excess ABG Hemoglobin ABG Oxyhemoglobin ABG Sodium ABG Potassium ABG Chloride ABG Glucose VBG pH Oxyhemoglobin Carboxyhemoglobin Sodium Potassium Chloride Carbon Dioxide BUN Creatinine Glucose POC Glucose 112 H 126 H 133 H Lactic Acid Calcium Ionized Calcium Magnesium AST ALT Alkaline Phosphatase Lactate Dehydrogenase NT-Pro-B Natriuret Pep Total Protein Albumin Arterial Blood Glucose Arterial Blood Ionized Calcium Urine WBC (Auto) Phenytoin Crossmatch 10/07/20 10/07/20 10/07/20 00:35 02:22 03:16 WBC RBC Hgb Hct MCV MCH MCHC RDW Plt Count Lymph % (Auto) [place] % (Auto) Lymph # (Auto) [place] # (Auto) Seg Neutrophils % Seg Neuts % (Manual) Lymphocytes % (Manual) Monocytes % (Manual) Nucleated RBC % Seg Neutrophils # Seg Neutrophils # Man Lymphocytes # (Manual) Monocytes # (Manual) PT INR APTT Fibrinogen D-Dimer ABG pH POC ABG pCO2 POC ABG pO2 ABG pO2 ABG HCO3 ABG Base Excess ABG Hemoglobin 11.6 L ABG Oxyhemoglobin ABG Sodium ABG Potassium ABG Chloride ABG Glucose 156 H VBG pH Oxyhemoglobin Carboxyhemoglobin 0.3 L Sodium Potassium Chloride Carbon Dioxide BUN Creatinine Glucose POC Glucose 124 H Lactic Acid Calcium Ionized Calcium Magnesium 5.90 H AST ALT Alkaline Phosphatase Lactate Dehydrogenase NT-Pro-B Natriuret Pep Total Protein Albumin Arterial Blood Glucose 156 H Arterial Blood Ionized Calcium 4.2 L Urine WBC (Auto) Phenytoin Crossmatch 10/07/20 10/07/20 10/07/20 04:06 05:45 07:05 WBC 19.2 H RBC 3.57 L Hgb Hct MCV MCH MCHC 35 H RDW 17.1 H Plt Count 129 L Lymph % (Auto) [place] % (Auto) Lymph # (Auto) [place] # (Auto) Seg Neutrophils % Seg Neuts % (Manual) 94.0 H Lymphocytes % (Manual) 6.0 L Monocytes % (Manual) Nucleated RBC % Seg Neutrophils # Seg Neutrophils # Man 18.0 H Lymphocytes # (Manual) Monocytes # (Manual) PT INR APTT Fibrinogen D-Dimer ABG pH POC ABG pCO2 POC ABG pO2 ABG pO2 ABG HCO3 ABG Base Excess ABG Hemoglobin ABG Oxyhemoglobin ABG Sodium ABG Potassium ABG Chloride ABG Glucose VBG pH Oxyhemoglobin Carboxyhemoglobin Sodium Potassium Chloride Carbon Dioxide BUN Creatinine Glucose POC Glucose 135 H 149 H Lactic Acid Calcium Ionized Calcium Magnesium AST ALT Alkaline Phosphatase Lactate Dehydrogenase NT-Pro-B Natriuret Pep Total Protein Albumin Arterial Blood Glucose Arterial Blood Ionized Calcium Urine WBC (Auto) Phenytoin Crossmatch 10/07/20 10/07/20 10/07/20 07:05 07:05 12:21 WBC RBC Hgb Hct MCV MCH MCHC RDW Plt Count Lymph % (Auto) [place] % (Auto) Lymph # (Auto) [place] # (Auto) Seg Neutrophils % Seg Neuts % (Manual) Lymphocytes % (Manual) Monocytes % (Manual) Nucleated RBC % Seg Neutrophils # Seg Neutrophils # Man Lymphocytes # (Manual) Monocytes # (Manual) PT INR APTT Fibrinogen D-Dimer ABG pH POC ABG pCO2 POC ABG pO2 ABG pO2 ABG HCO3 ABG Base Excess ABG Hemoglobin ABG Oxyhemoglobin ABG Sodium ABG Potassium ABG Chloride ABG Glucose VBG pH Oxyhemoglobin Carboxyhemoglobin Sodium Potassium Chloride Carbon Dioxide BUN 21 H Creatinine 1.7 H Glucose 171 H POC Glucose 124 H Lactic Acid Calcium 7.4 L Ionized Calcium Magnesium 6.10 H AST 245 H ALT 147 H Alkaline Phosphatase Lactate Dehydrogenase NT-Pro-B Natriuret Pep Total Protein 5.3 L Albumin 2.8 L Arterial Blood Glucose Arterial Blood Ionized Calcium Urine WBC (Auto) Phenytoin Crossmatch 10/07/20 10/07/20 10/07/20 19:52 21:00 21:50 WBC RBC Hgb Hct MCV MCH MCHC RDW Plt Count Lymph % (Auto) [place] % (Auto) Lymph # (Auto) [place] # (Auto) Seg Neutrophils % Seg Neuts % (Manual) Lymphocytes % (Manual) Monocytes % (Manual) Nucleated RBC % Seg Neutrophils # Seg Neutrophils # Man Lymphocytes # (Manual) Monocytes # (Manual) PT INR APTT Fibrinogen D-Dimer ABG pH POC ABG pCO2 POC ABG pO2 ABG pO2 ABG HCO3 ABG Base Excess ABG Hemoglobin ABG Oxyhemoglobin ABG Sodium ABG Potassium ABG Chloride ABG Glucose VBG pH Oxyhemoglobin Carboxyhemoglobin Sodium Potassium Chloride Carbon Dioxide BUN Creatinine Glucose POC Glucose 193 H 138 H Lactic Acid Calcium Ionized Calcium 4.4 L Magnesium AST ALT Alkaline Phosphatase Lactate Dehydrogenase NT-Pro-B Natriuret Pep Total Protein Albumin Arterial Blood Glucose Arterial Blood Ionized Calcium Urine WBC (Auto) Phenytoin Crossmatch 12/23/20 12/24/20 12/24/20 23:41 04:20 05:30 WBC RBC Hgb Hct MCV MCH MCHC RDW Plt Count Lymph % (Auto) [place] % (Auto) Lymph # (Auto) [place] # (Auto) Seg Neutrophils % Seg Neuts % (Manual) Lymphocytes % (Manual) Monocytes % (Manual) Nucleated RBC % Seg Neutrophils # Seg Neutrophils # Man Lymphocytes # (Manual) Monocytes # (Manual) PT INR APTT Fibrinogen D-Dimer ABG pH 7.467 H POC ABG pCO2 POC ABG pO2 189.8 H ABG pO2 ABG HCO3 ABG Base Excess ABG Hemoglobin 10.8 L ABG Oxyhemoglobin ABG Sodium ABG Potassium ABG Chloride ABG Glucose 133 H VBG pH Oxyhemoglobin Carboxyhemoglobin Sodium Potassium Chloride Carbon Dioxide BUN Creatinine Glucose POC Glucose 118 H 114 H Lactic Acid Calcium Ionized Calcium Magnesium AST ALT Alkaline Phosphatase Lactate Dehydrogenase NT-Pro-B Natriuret Pep Total Protein Albumin Arterial Blood Glucose 133 H Arterial Blood Ionized Calcium 4.2 L Urine WBC (Auto) Phenytoin Crossmatch 10/08/20 10/08/20 10/08/20 05:43 06:42 06:42 WBC 23.6 H RBC 3.54 L Hgb Hct MCV MCH MCHC RDW 17.8 H Plt Count Lymph % (Auto) [place] % (Auto) Lymph # (Auto) [place] # (Auto) Seg Neutrophils % Seg Neuts % (Manual) 93.0 H Lymphocytes % (Manual) 3.0 L Monocytes % (Manual) Nucleated RBC % 1.0 H Seg Neutrophils # Seg Neutrophils # Man 21.9 H Lymphocytes # (Manual) 0.7 L Monocytes # (Manual) 0.9 H PT INR APTT Fibrinogen D-Dimer ABG pH POC ABG pCO2 POC ABG pO2 ABG pO2 ABG HCO3 ABG Base Excess ABG Hemoglobin ABG Oxyhemoglobin ABG Sodium ABG Potassium ABG Chloride ABG Glucose VBG pH Oxyhemoglobin Carboxyhemoglobin Sodium Potassium Chloride Carbon Dioxide BUN 28 H Creatinine 1.6 H Glucose 141 H POC Glucose 126 H Lactic Acid Calcium 7.6 L Ionized Calcium Magnesium AST 162 H ALT 103 H Alkaline Phosphatase Lactate Dehydrogenase NT-Pro-B Natriuret Pep Total Protein 5.4 L Albumin 2.7 L Arterial Blood Glucose Arterial Blood Ionized Calcium Urine WBC (Auto) Phenytoin Crossmatch 10/08/20 10/08/20 10/08/20 11:20 16:05 20:14 WBC RBC Hgb Hct MCV MCH MCHC RDW Plt Count Lymph % (Auto) [place] % (Auto) Lymph # (Auto) [place] # (Auto) Seg Neutrophils % Seg Neuts % (Manual) Lymphocytes % (Manual) Monocytes % (Manual) Nucleated RBC % Seg Neutrophils # Seg Neutrophils # Man Lymphocytes # (Manual) Monocytes # (Manual) PT INR APTT Fibrinogen D-Dimer ABG pH POC ABG pCO2 POC ABG pO2 ABG pO2 ABG HCO3 ABG Base Excess ABG Hemoglobin ABG Oxyhemoglobin ABG Sodium ABG Potassium ABG Chloride ABG Glucose VBG pH Oxyhemoglobin Carboxyhemoglobin Sodium Potassium Chloride Carbon Dioxide BUN Creatinine Glucose POC Glucose 127 H 172 H 147 H Lactic Acid Calcium Ionized Calcium Magnesium AST ALT Alkaline Phosphatase Lactate Dehydrogenase NT-Pro-B Natriuret Pep Total Protein Albumin Arterial Blood Glucose Arterial Blood Ionized Calcium Urine WBC (Auto) Phenytoin Crossmatch 10/08/20 10/08/20 10/09/20 21:27 23:24 02:10 WBC RBC Hgb Hct MCV MCH MCHC RDW Plt Count Lymph % (Auto) [place] % (Auto) Lymph # (Auto) [place] # (Auto) Seg Neutrophils % Seg Neuts % (Manual) Lymphocytes % (Manual) Monocytes % (Manual) Nucleated RBC % Seg Neutrophils # Seg Neutrophils # Man Lymphocytes # (Manual) Monocytes # (Manual) PT INR APTT Fibrinogen D-Dimer ABG pH POC ABG pCO2 POC ABG pO2 ABG pO2 ABG HCO3 ABG Base Excess ABG Hemoglobin ABG Oxyhemoglobin ABG Sodium ABG Potassium ABG Chloride ABG Glucose VBG pH Oxyhemoglobin Carboxyhemoglobin Sodium Potassium Chloride Carbon Dioxide BUN Creatinine Glucose POC Glucose 140 H 135 H 111 H Lactic Acid Calcium Ionized Calcium Magnesium AST ALT Alkaline Phosphatase Lactate Dehydrogenase NT-Pro-B Natriuret Pep Total Protein Albumin Arterial Blood Glucose Arterial Blood Ionized Calcium Urine WBC (Auto) Phenytoin Crossmatch 10/09/20 10/09/20 10/09/20 03:44 04:39 05:46 WBC 19.7 H RBC 3.51 L Hgb Hct MCV MCH MCHC RDW 17.7 H Plt Count Lymph % (Auto) [place] % (Auto) Lymph # (Auto) [place] # (Auto) Seg Neutrophils % Seg Neuts % (Manual) 86.0 H Lymphocytes % (Manual) 4.0 L Monocytes % (Manual) 9.0 H Nucleated RBC % Seg Neutrophils # Seg Neutrophils # Man 16.9 H Lymphocytes # (Manual) 0.8 L Monocytes # (Manual) 1.8 H PT INR APTT Fibrinogen D-Dimer ABG pH 7.513 H POC ABG pCO2 POC ABG pO2 33.6 L ABG pO2 ABG HCO3 ABG Base Excess ABG Hemoglobin 11.1 L ABG Oxyhemoglobin 70.2 L ABG Sodium ABG Potassium 3.2 L ABG Chloride 108.0 H ABG Glucose 108 H VBG pH Oxyhemoglobin Carboxyhemoglobin Sodium Potassium Chloride Carbon Dioxide BUN Creatinine Glucose POC Glucose 109 H Lactic Acid Calcium Ionized Calcium Magnesium AST ALT Alkaline Phosphatase Lactate Dehydrogenase NT-Pro-B Natriuret Pep Total Protein Albumin Arterial Blood Glucose 108 H Arterial Blood Ionized Calcium 4.3 L Urine WBC (Auto) Phenytoin Crossmatch 10/09/20 10/10/20 10/10/20 05:46 04:00 04:00 WBC 18.4 H RBC Hgb Hct MCV MCH MCHC RDW 17.5 H Plt Count Lymph % (Auto) 9.8 L [place] % (Auto) 8.8 H Lymph # (Auto) [place] # (Auto) 1.6 H Seg Neutrophils % 80.0 H Seg Neuts % (Manual) Lymphocytes % (Manual) Monocytes % (Manual) Nucleated RBC % Seg Neutrophils # 14.7 H Seg Neutrophils # Man Lymphocytes # (Manual) Monocytes # (Manual) PT INR APTT Fibrinogen D-Dimer ABG pH POC ABG pCO2 POC ABG pO2 ABG pO2 ABG HCO3 ABG Base Excess ABG Hemoglobin ABG Oxyhemoglobin ABG Sodium ABG Potassium ABG Chloride ABG Glucose VBG pH Oxyhemoglobin Carboxyhemoglobin Sodium 146 H Potassium 3.2 L 2.9 L* Chloride 108.9 H 112.6 H Carbon Dioxide BUN 34 H 28 H Creatinine 1.4 H 1.3 H Glucose 109 H 101 H POC Glucose Lactic Acid Calcium 7.6 L 7.8 L Ionized Calcium Magnesium AST 137 H 122 H ALT 99 H 81 H Alkaline Phosphatase Lactate Dehydrogenase NT-Pro-B Natriuret Pep Total Protein 5.1 L 5.2 L Albumin 2.6 L 2.7 L Arterial Blood Glucose Arterial Blood Ionized Calcium Urine WBC (Auto) Phenytoin Crossmatch 10/10/20 10/10/20 10/11/20 04:42 09:50 00:44 WBC RBC Hgb Hct MCV MCH MCHC RDW Plt Count Lymph % (Auto) [place] % (Auto) Lymph # (Auto) [place] # (Auto) Seg Neutrophils % Seg Neuts % (Manual) Lymphocytes % (Manual) Monocytes % (Manual) Nucleated RBC % Seg Neutrophils # Seg Neutrophils # Man Lymphocytes # (Manual) Monocytes # (Manual) PT INR APTT Fibrinogen D-Dimer ABG pH 7.534 H POC ABG pCO2 POC ABG pO2 ABG pO2 95.2 H ABG HCO3 ABG Base Excess ABG Hemoglobin 11.3 L ABG Oxyhemoglobin ABG Sodium ABG Potassium ABG Chloride ABG Glucose VBG pH Oxyhemoglobin Carboxyhemoglobin Sodium Potassium Chloride Carbon Dioxide BUN Creatinine Glucose POC Glucose 109 H 106 H Lactic Acid Calcium Ionized Calcium Magnesium AST ALT Alkaline Phosphatase Lactate Dehydrogenase NT-Pro-B Natriuret Pep Total Protein Albumin Arterial Blood Glucose Arterial Blood Ionized Calcium Urine WBC (Auto) Phenytoin Crossmatch 10/11/20 10/11/20 10/11/20 04:00 04:00 06:08 WBC 27.0 H RBC Hgb Hct MCV MCH MCHC RDW 17.7 H Plt Count Lymph % (Auto) 6.3 L [place] % (Auto) Lymph # (Auto) [place] # (Auto) 1.5 H Seg Neutrophils % 87.1 H Seg Neuts % (Manual) Lymphocytes % (Manual) Monocytes % (Manual) Nucleated RBC % Seg Neutrophils # 23.5 H Seg Neutrophils # Man Lymphocytes # (Manual) Monocytes # (Manual) PT INR APTT Fibrinogen D-Dimer ABG pH POC ABG pCO2 POC ABG pO2 ABG pO2 ABG HCO3 ABG Base Excess ABG Hemoglobin ABG Oxyhemoglobin ABG Sodium ABG Potassium ABG Chloride ABG Glucose VBG pH Oxyhemoglobin Carboxyhemoglobin Sodium Potassium 3.2 L Chloride 110.4 H Carbon Dioxide 19 L BUN 22 H Creatinine Glucose 116 H POC Glucose 107 H Lactic Acid Calcium 7.7 L Ionized Calcium Magnesium 1.60 L AST ALT Alkaline Phosphatase Lactate Dehydrogenase NT-Pro-B Natriuret Pep Total Protein Albumin Arterial Blood Glucose Arterial Blood Ionized Calcium Urine WBC (Auto) Phenytoin Crossmatch 10/11/20 10/11/20 10/12/20 11:41 13:26 03:52 WBC RBC Hgb Hct MCV MCH MCHC RDW Plt Count Lymph % (Auto) [place] % (Auto) Lymph # (Auto) [place] # (Auto) Seg Neutrophils % Seg Neuts % (Manual) Lymphocytes % (Manual) Monocytes % (Manual) Nucleated RBC % Seg Neutrophils # Seg Neutrophils # Man Lymphocytes # (Manual) Monocytes # (Manual) PT INR APTT Fibrinogen D-Dimer ABG pH POC ABG pCO2 POC ABG pO2 ABG pO2 ABG HCO3 ABG Base Excess ABG Hemoglobin ABG Oxyhemoglobin ABG Sodium ABG Potassium ABG Chloride ABG Glucose VBG pH Oxyhemoglobin Carboxyhemoglobin Sodium Potassium Chloride Carbon Dioxide BUN Creatinine Glucose POC Glucose 116 H 114 H Lactic Acid Calcium Ionized Calcium Magnesium AST ALT Alkaline Phosphatase Lactate Dehydrogenase NT-Pro-B Natriuret Pep Total Protein Albumin Arterial Blood Glucose Arterial Blood Ionized Calcium Urine WBC (Auto) 24.0 H Phenytoin Crossmatch 10/12/20 10/12/20 10/12/20 04:24 14:47 21:33 WBC RBC Hgb Hct MCV MCH MCHC RDW Plt Count Lymph % (Auto) [place] % (Auto) Lymph # (Auto) [place] # (Auto) Seg Neutrophils % Seg Neuts % (Manual) Lymphocytes % (Manual) Monocytes % (Manual) Nucleated RBC % Seg Neutrophils # Seg Neutrophils # Man Lymphocytes # (Manual) Monocytes # (Manual) PT INR APTT Fibrinogen D-Dimer ABG pH POC ABG pCO2 POC ABG pO2 ABG pO2 ABG HCO3 ABG Base Excess ABG Hemoglobin ABG Oxyhemoglobin ABG Sodium ABG Potassium ABG Chloride ABG Glucose VBG pH Oxyhemoglobin Carboxyhemoglobin Sodium Potassium Chloride 109.9 H Carbon Dioxide 13 L BUN 18 H Creatinine Glucose 119 H POC Glucose 107 H Lactic Acid Calcium 7.6 L Ionized Calcium Magnesium 1.60 L AST ALT Alkaline Phosphatase Lactate Dehydrogenase NT-Pro-B Natriuret Pep Total Protein Albumin Arterial Blood Glucose Arterial Blood Ionized Calcium Urine WBC (Auto) Phenytoin Crossmatch 10/12/20 10/12/20 10/13/20 Unknown Unknown 07:00 WBC 24.3 H RBC 3.38 L Hgb 9.8 L Hct MCV MCH MCHC RDW 18.7 H Plt Count Lymph % (Auto) [place] % (Auto) Lymph # (Auto) [place] # (Auto) Seg Neutrophils % Seg Neuts % (Manual) 93.5 H Lymphocytes % (Manual) 4.5 L Monocytes % (Manual) Nucleated RBC % Seg Neutrophils # Seg Neutrophils # Man 22.7 H Lymphocytes # (Manual) 1.1 L Monocytes # (Manual) PT INR APTT Fibrinogen D-Dimer ABG pH POC ABG pCO2 POC ABG pO2 ABG pO2 ABG HCO3 ABG Base Excess ABG Hemoglobin ABG Oxyhemoglobin ABG Sodium ABG Potassium ABG Chloride ABG Glucose VBG pH Oxyhemoglobin Carboxyhemoglobin Sodium 135 L D Potassium 3.1 L Chloride Carbon Dioxide 17 L BUN Creatinine Glucose 510 H* POC Glucose Lactic Acid Calcium 7.2 L Ionized Calcium Magnesium AST ALT Alkaline Phosphatase Lactate Dehydrogenase NT-Pro-B Natriuret Pep Total Protein Albumin Arterial Blood Glucose Arterial Blood Ionized Calcium Urine WBC (Auto) Phenytoin 5.7 L Crossmatch 10/13/20 10/13/20 10/13/20 07:00 07:00 07:18 WBC 23.6 H RBC 3.26 L Hgb 9.4 L Hct 28.7 L MCV MCH MCHC RDW 18.3 H Plt Count Lymph % (Auto) [place] % (Auto) Lymph # (Auto) [place] # (Auto) Seg Neutrophils % Seg Neuts % (Manual) Lymphocytes % (Manual) Monocytes % (Manual) Nucleated RBC % Seg Neutrophils # Seg Neutrophils # Man Lymphocytes # (Manual) Monocytes # (Manual) PT INR APTT Fibrinogen D-Dimer ABG pH 7.473 H POC ABG pCO2 20.7 L POC ABG pO2 137.9 H ABG pO2 ABG HCO3 ABG Base Excess ABG Hemoglobin 11.2 L ABG Oxyhemoglobin 98.3 H ABG Sodium 135.9 L ABG Potassium ABG Chloride 111.0 H ABG Glucose 109 H VBG pH Oxyhemoglobin Carboxyhemoglobin 0.3 L Sodium 135 L Potassium 3.5 L Chloride 109.1 H Carbon Dioxide 18 L BUN Creatinine Glucose POC Glucose Lactic Acid Calcium 7.3 L Ionized Calcium Magnesium 1.60 L AST ALT Alkaline Phosphatase Lactate Dehydrogenase NT-Pro-B Natriuret Pep Total Protein Albumin Arterial Blood Glucose 109 H Arterial Blood Ionized Calcium Urine WBC (Auto) Phenytoin Crossmatch 10/14/20 10/14/20 10/15/20 04:00 04:00 05:50 WBC 28.6 H 23.2 H RBC 3.61 L 3.43 L Hgb 9.9 L Hct 30.0 L MCV MCH MCHC RDW 18.3 H 18.2 H Plt Count Lymph % (Auto) [place] % (Auto) Lymph # (Auto) [place] # (Auto) Seg Neutrophils % Seg Neuts % (Manual) 88.0 H 90.0 H Lymphocytes % (Manual) 5.0 L 4.0 L Monocytes % (Manual) Nucleated RBC % Seg Neutrophils # Seg Neutrophils # Man 25.2 H 20.9 H Lymphocytes # (Manual) 0.9 L Monocytes # (Manual) 1.4 H 0.9 H PT INR APTT Fibrinogen D-Dimer ABG pH POC ABG pCO2 POC ABG pO2 ABG pO2 ABG HCO3 ABG Base Excess ABG Hemoglobin ABG Oxyhemoglobin ABG Sodium ABG Potassium ABG Chloride ABG Glucose VBG pH Oxyhemoglobin Carboxyhemoglobin Sodium Potassium Chloride 109.9 H Carbon Dioxide 17 L BUN Creatinine Glucose POC Glucose Lactic Acid Calcium Ionized Calcium Magnesium AST ALT Alkaline Phosphatase Lactate Dehydrogenase NT-Pro-B Natriuret Pep Total Protein Albumin Arterial Blood Glucose Arterial Blood Ionized Calcium Urine WBC (Auto) Phenytoin Crossmatch 10/15/20 05:50 WBC RBC Hgb Hct MCV MCH MCHC RDW Plt Count Lymph % (Auto) [place] % (Auto) Lymph # (Auto) [place] # (Auto) Seg Neutrophils % Seg Neuts % (Manual) Lymphocytes % (Manual) Monocytes % (Manual) Nucleated RBC % Seg Neutrophils # Seg Neutrophils # Man Lymphocytes # (Manual) Monocytes # (Manual) PT INR APTT Fibrinogen D-Dimer ABG pH POC ABG pCO2 POC ABG pO2 ABG pO2 ABG HCO3 ABG Base Excess ABG Hemoglobin ABG Oxyhemoglobin ABG Sodium ABG Potassium ABG Chloride ABG Glucose VBG pH Oxyhemoglobin Carboxyhemoglobin Sodium Potassium Chloride 110.3 H Carbon Dioxide 18 L BUN Creatinine Glucose 105 H POC Glucose Lactic Acid Calcium 8.3 L Ionized Calcium Magnesium AST ALT Alkaline Phosphatase Lactate Dehydrogenase NT-Pro-B Natriuret Pep Total Protein Albumin Arterial Blood Glucose Arterial Blood Ionized Calcium Urine WBC (Auto) Phenytoin Crossmatch
[2020-10-16] MEDS: DEXTROSE 10% IN WATER 1,000 ML IV SCH (09:41)
--- NOTE | 2020-10-16 10:52 | Progress Note ---
Assessment and Plan - Patient Problems (1) Acute respiratory failure with hypoxia Current Visit: Yes Status: Acute Plan to address problem: no evidence of neurological improvement await results of brain imaging and evaluation continue to monitor leukocytosis and febrile episodes (2) Cardiac arrest Current Visit: Yes Status: Acute (3) DIC (disseminated intravascular coagulation) Current Visit: Yes Status: Acute (4) Encephalopathy Current Visit: Yes Status: Acute Subjective - Subjective Date of service: 10/16/20 Principal diagnosis: Eclampsia/HELLP Syndrome, ADOLPH, DIC; s/p , s/p supracervical hyst Interval history: 30y/o POD #13 s/p supracervical hysterectomy for eclampsia and DIC. Patient remains unresponsive. Patient with temp spike of 100.9 most recently 99. Patient scheduled for imaging today with contrast. Will await interpretation from neurology once imaging and testing completed. Continues to have diarrhea stools. Objective - Vital Signs Latest vital signs: Vital Signs Temp Pulse Pulse Pulse Resp Resp BP 10/16/20 10:30 82 30 H 156/94 10/16/20 10:15 77 27 H 158/98 10/16/20 10:00 81 28 H 155/84 10/16/20 09:45 70 24 152/91 10/16/20 09:30 73 25 H 153/85 10/16/20 09:15 74 24 158/91 10/16/20 09:00 86 28 H 165/84 10/16/20 08:45 83 25 H 146/96 10/16/20 08:39 94 H 22 10/16/20 08:36 83 28 H 150/88 10/16/20 08:32 83 150/88 10/16/20 08:30 81 25 H 150/88 10/16/20 08:15 77 23 155/88 10/16/20 08:00 83 83 26 H 143/98 10/16/20 07:45 83 26 H 146/92 10/16/20 07:30 76 25 H 144/90 10/16/20 07:15 84 27 H 139/79 10/16/20 07:00 74 24 145/91 10/16/20 06:45 78 24 141/89 10/16/20 06:30 81 23 142/85 10/16/20 06:15 79 25 H 136/87 10/16/20 06:00 76 24 143/83 10/16/20 05:45 78 22 141/80 10/16/20 05:30 84 25 H 147/83 10/16/20 05:15 82 22 136/79 10/16/20 05:00 81 23 136/79 10/16/20 04:45 86 21 134/84 10/16/20 04:43 86 137/78 10/16/20 04:30 78 23 137/78 10/16/20 04:15 77 23 130/69 10/16/20 04:00 99 F 78 79 22 146/78 10/16/20 03:45 76 22 138/69 10/16/20 03:30 77 22 139/76 10/16/20 03:15 76 24 130/73 10/16/20 03:00 75 23 137/76 10/16/20 02:45 76 21 132/77 10/16/20 02:30 75 24 129/71 10/16/20 02:15 75 22 124/73 10/16/20 02:00 77 23 128/70 10/16/20 01:45 77 22 126/71 10/16/20 01:30 79 21 130/70 10/16/20 01:15 80 20 128/72 10/16/20 01:14 79 24 10/16/20 01:00 83 24 136/70 10/16/20 00:45 90 26 H 179/84 10/16/20 00:30 82 19 179/84 10/16/20 00:15 97 H 32 H 167/106 10/16/20 00:00 100.9 F H 91 H 89 28 H 154/78 10/15/20 23:45 79 24 158/82 10/15/20 23:31 88 26 H 168/84 10/15/20 23:15 84 29 H 171/93 10/15/20 23:01 83 27 H 171/93 10/15/20 22:45 95 H 33 H 171/93 10/15/20 22:30 87 29 H 158/90 10/15/20 22:15 81 23 167/90 10/15/20 22:01 81 22 150/101 10/15/20 21:45 84 26 H 159/98 10/15/20 21:30 95 H 34 H 176/108 10/15/20 21:16 92 H 23 157/94 12/31/20 21:15 92 H 24 157/94 10/15/20 21:02 93 H 21 154/95 10/15/20 21:00 97 H 15 154/95 10/15/20 20:57 85 154/88 10/15/20 20:48 85 25 H 154/88 10/15/20 20:45 84 28 H 154/88 10/15/20 20:30 24 152/91 10/15/20 20:15 89 31 H 156/84 10/15/20 20:00 99.9 F H 91 H 91 H 17 150/92 10/15/20 19:53 84 149/92 10/15/20 19:45 86 28 H 149/92 10/15/20 19:30 83 17 153/93 10/15/20 19:15 82 28 H 151/96 10/15/20 19:00 82 14 147/99 10/15/20 18:45 80 14 137/89 10/15/20 18:30 83 17 154/96 10/15/20 18:15 79 21 145/95 10/15/20 18:00 80 20 134/83 10/15/20 17:45 129/82 10/15/20 17:30 82 26 H 122/83 10/15/20 17:15 80 24 121/82 10/15/20 17:00 80 23 129/76 10/15/20 16:45 79 24 127/73 10/15/20 16:37 79 23 10/15/20 16:35 84 127/73 10/15/20 16:31 79 24 127/73 10/15/20 16:15 83 25 H 129/74 10/15/20 16:00 99.6 F 81 23 129/74 10/15/20 15:45 78 23 128/75 10/15/20 15:30 80 23 132/76 10/15/20 15:15 81 23 131/74 10/15/20 15:01 82 23 128/74 10/15/20 14:45 87 25 H 164/65 10/15/20 14:31 86 22 152/95 10/15/20 14:15 91 H 27 H 152/95 10/15/20 14:00 89 39 H 162/97 10/15/20 13:53 89 148/94 10/15/20 13:45 85 27 H 148/94 10/15/20 13:30 81 27 H 157/92 10/15/20 13:20 82 154/94 10/15/20 13:15 79 25 H 154/94 10/15/20 13:03 90 20 151/94 10/15/20 12:00 100.8 F H 20 10/15/20 11:15 86 27 H 151/94 10/15/20 11:00 83 151/90 Pulse Ox 10/16/20 10:30 100 10/16/20 10:15 100 10/16/20 10:00 100 10/16/20 09:45 100 10/16/20 09:30 99 10/16/20 09:15 100 10/16/20 09:00 99 10/16/20 08:45 100 10/16/20 08:39 10/16/20 08:36 100 10/16/20 08:32 100 10/16/20 08:30 100 10/16/20 08:15 100 10/16/20 08:00 100 10/16/20 07:45 100 10/16/20 07:30 100 10/16/20 07:15 100 10/16/20 07:00 100 10/16/20 06:45 100 10/16/20 06:30 100 10/16/20 06:15 100 10/16/20 06:00 100 10/16/20 05:45 100 10/16/20 05:30 100 10/16/20 05:15 99 10/16/20 05:00 100 10/16/20 04:45 99 10/16/20 04:43 100 10/16/20 04:30 99 10/16/20 04:15 100 10/16/20 04:00 100 10/16/20 03:45 99 10/16/20 03:30 100 10/16/20 03:15 99 10/16/20 03:00 100 10/16/20 02:45 99 10/16/20 02:30 99 10/16/20 02:15 100 10/16/20 02:00 99 10/16/20 01:45 98 10/16/20 01:30 100 10/16/20 01:15 99 10/16/20 01:14 10/16/20 01:00 99 10/16/20 00:45 99 10/16/20 00:30 100 10/16/20 00:15 100 10/16/20 00:00 99 10/15/20 23:45 100 10/15/20 23:31 100 10/15/20 23:15 100 10/15/20 23:01 10/15/20 22:45 100 10/15/20 22:30 100 10/15/20 22:15 100 10/15/20 22:01 100 10/15/20 21:45 100 10/15/20 21:30 100 10/15/20 21:16 100 10/15/20 21:15 100 10/15/20 21:02 99 10/15/20 21:00 100 10/15/20 20:57 100 10/15/20 20:48 100 10/15/20 20:45 100 10/15/20 20:30 100 10/15/20 20:15 100 10/15/20 20:00 99 10/15/20 19:53 10/15/20 19:45 100 10/15/20 19:30 100 10/15/20 19:15 100 10/15/20 19:00 100 10/15/20 18:45 100 10/15/20 18:30 100 10/15/20 18:15 100 10/15/20 18:00 100 10/15/20 17:45 99 10/15/20 17:30 100 10/15/20 17:15 100 10/15/20 17:00 100 10/15/20 16:45 100 10/15/20 16:37 10/15/20 16:35 100 10/15/20 16:31 100 10/15/20 16:15 100 10/15/20 16:00 100 10/15/20 15:45 100 10/15/20 15:30 100 10/15/20 15:15 100 10/15/20 15:01 100 10/15/20 14:45 100 10/15/20 14:31 100 10/15/20 14:15 99 10/15/20 14:00 99 10/15/20 13:53 10/15/20 13:45 100 10/15/20 13:30 99 10/15/20 13:20 99 10/15/20 13:15 99 10/15/20 13:03 99 10/15/20 12:00 97 10/15/20 11:15 97 10/15/20 11:00 98 Intake and Output 10/15/20 10/16/20 10/16/20 22:59 06:59 14:59 Intake Total 1625 1045 1616.218 Output Total 850 2500 Balance 775 -1455 1616.218 Intake: IV 9703 126 7924.218 CEFEPIME/NS 2 GM/100 ML 2 100 gm In 100 ml @ 200 mls/ hr IV Q12HR ERINN Rx#: [id number] D10w 1,000 ml @ 75 mls/hr 1000 IV DIRECT ERINN Rx#: [id number] FLAGYL 500 MG/100 ML 500 100 mg In 100 ml @ 100 mls/hr IV Q8H ERINN Rx#:[id number] Right Antecubital 10 10 Vancomycin 1,750 mg In 535 NaCl 0.9% 500 ml 500 ml @ 333.333 mls/hr IV Q12H ERINN Rx#:[id number] dexmedeTOMIDine 1,000 MCG 260 260 311.218 In NaCl 0.9% 250Ml 250 ml @ 0.2 MCG/KG/HR 7.249 mls/hr IV TITRATE ERINN Rx# :[id number] Intake, Free Water 100 200 100 Tube Feeding 520 585 195 Output: Urine 850 2500 Indwelling Catheter 850 2500 Other: Total, Intake Amount 65 65 65 Total, Output Amount 850 1500 Voiding Method Indwelling Catheter Indwelling Catheter Indwelling Catheter
--- NOTE | 2020-10-16 11:01 | Progress Note ---
<CHRISTIANO COTTO - Last Filed: 10/16/20 15:38> Assessment and Plan - Patient Problems (1) Acute respiratory failure with hypoxia Current Visit: Yes Status: Acute Plan to address problem: Most likely 2/2 to Pneumonia/sepsis Continue respiratory care-broncodilators and oxygen-pt is intubated Completed IV antibiotic thearapy today blood culture -gram negative stew ID following Start vancomycin p.o. empirically for C. difficile total 10 days, given diarrhea and worsening leukocytosis, (2) Preeclampsia Current Visit: Yes Status: Acute Plan to address problem: patient presented with seizure and hypoxia on admission went into respiratory/cardiac arrest successfully resuscitated urgent done-baby handed to NICU staff. S/p hysterectomy for severe bleeding/DIC developed severe anemia-->received RBC, plt, FFP, cryo was on max pressors-->now off pressors still on vent, on sedation Hematology following (3) Cardiac arrest Current Visit: Yes Status: Acute Plan to address problem: patient is s/p Cardiac arrest x2 on admission and on 10/07 ACLS protocol followed by csrzmnc-V-xcmigyp done-pt was Echo showed preserved Ef (4) DIC (disseminated intravascular coagulation) Current Visit: Yes Status: Acute Plan to address problem: DIC (disseminated intravascular coagulation) vs HELLP syndrome Has anemia,thrombocytopenia and elevated liver enzymes Patient received multiple units of RBCs, FFP's, cryo Hematology/oncology recommendations appreciated Continue to trend fibrinogen and INR (5) Shock Current Visit: Yes Status: Acute Plan to address problem: Sepsis and shock Likely 2/2 to hypovolemia/blood loss Lactic acicdosis-trend s/p pressor support Was given empirical antibiotics for possible sepsis. Continue to monitor blood pressure closely (6) ADOLPH (acute kidney injury) Current Visit: Yes Status: Acute Plan to address problem: has resolved (7) DVT prophylaxis Current Visit: Yes Status: Acute Plan to address problem: Due dIC-hold all anticoagulant Subjective Date of service: 10/16/20 Principal diagnosis: Eclampsia/HELLP Syndrome, ADOLPH, DIC; s/p , s/p supracervical hyst Interval history: Reviewed lab, mar, and v/s patient seen at bedside-orally intubated and on vent patient unresponsive-opens without purposeful response On prdx for sedation The high probability of a clinically significant, sudden or life 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 The aggregate critical care time was [34] minutes. This time is in addition to time spent performing reported procedures but includes the following: [x] Data Review and interpretation [x] Patient assessment and monitoring of vital signs [x] Documentation [x] Medication orders and management Objective - Constitutional Vitals: Vital Signs - 12hr 10/15/20 10/15/20 10/15/20 23:01 23:15 23:31 Temperature Pulse Rate 83 84 88 Pulse Rate [ Anterior Bilateral Throughout] Pulse Rate [ From Monitor] Respiratory 27 H 29 H 26 H Rate Respiratory Rate [Anterior Bilateral Throughout] Blood Pressure 171/93 171/93 168/84 O2 Sat by Pulse 100 100 Oximetry 10/15/20 10/16/20 10/16/20 23:45 00:00 00:15 Temperature 100.9 F H Pulse Rate 79 91 H 97 H Pulse Rate [ Anterior Bilateral Throughout] Pulse Rate [ 89 From Monitor] Respiratory 24 28 H 32 H Rate Respiratory Rate [Anterior Bilateral Throughout] Blood Pressure 158/82 154/78 167/106 O2 Sat by Pulse 100 99 100 Oximetry 10/16/20 10/16/20 10/16/20 00:30 00:45 01:00 Temperature Pulse Rate 82 90 83 Pulse Rate [ Anterior Bilateral Throughout] Pulse Rate [ From Monitor] Respiratory 19 26 H 24 Rate Respiratory Rate [Anterior Bilateral Throughout] Blood Pressure 179/84 179/84 136/70 O2 Sat by Pulse 100 99 99 Oximetry 10/16/20 10/16/20 10/16/20 01:14 01:15 01:30 Temperature Pulse Rate 80 79 Pulse Rate [ 79 Anterior Bilateral Throughout] Pulse Rate [ From Monitor] Respiratory 20 21 Rate Respiratory 24 Rate [Anterior Bilateral Throughout] Blood Pressure 128/72 130/70 O2 Sat by Pulse 99 100 Oximetry 10/16/20 10/16/20 10/16/20 01:45 02:00 02:15 Temperature Pulse Rate 77 77 75 Pulse Rate [ Anterior Bilateral Throughout] Pulse Rate [ From Monitor] Respiratory 22 23 22 Rate Respiratory Rate [Anterior Bilateral Throughout] Blood Pressure 126/71 128/70 124/73 O2 Sat by Pulse 98 99 100 Oximetry 10/16/20 10/16/20 10/16/20 02:30 02:45 03:00 Temperature Pulse Rate 75 76 75 Pulse Rate [ Anterior Bilateral Throughout] Pulse Rate [ From Monitor] Respiratory 24 21 23 Rate Respiratory Rate [Anterior Bilateral Throughout] Blood Pressure 129/71 132/77 137/76 O2 Sat by Pulse 99 99 100 Oximetry 10/16/20 10/16/20 10/16/20 03:15 03:30 03:45 Temperature Pulse Rate 76 77 76 Pulse Rate [ Anterior Bilateral Throughout] Pulse Rate [ From Monitor] Respiratory 24 22 22 Rate Respiratory Rate [Anterior Bilateral Throughout] Blood Pressure 130/73 139/76 138/69 O2 Sat by Pulse 99 100 99 Oximetry 10/16/20 10/16/20 10/16/20 04:00 04:15 04:30 Temperature 99 F Pulse Rate 78 77 78 Pulse Rate [ Anterior Bilateral Throughout] Pulse Rate [ 79 From Monitor] Respiratory 22 23 23 Rate Respiratory Rate [Anterior Bilateral Throughout] Blood Pressure 146/78 130/69 137/78 O2 Sat by Pulse 100 100 99 Oximetry 10/16/20 10/16/20 10/16/20 04:43 04:45 05:00 Temperature Pulse Rate 86 86 81 Pulse Rate [ Anterior Bilateral Throughout] Pulse Rate [ From Monitor] Respiratory 21 23 Rate Respiratory Rate [Anterior Bilateral Throughout] Blood Pressure 137/78 134/84 136/79 O2 Sat by Pulse 100 99 100 Oximetry 10/16/20 10/16/20 10/16/20 05:15 05:30 05:45 Temperature Pulse Rate 82 84 78 Pulse Rate [ Anterior Bilateral Throughout] Pulse Rate [ From Monitor] Respiratory 22 25 H 22 Rate Respiratory Rate [Anterior Bilateral Throughout] Blood Pressure 136/79 147/83 141/80 O2 Sat by Pulse 99 100 100 Oximetry 10/16/20 10/16/20 10/16/20 06:00 06:15 06:30 Temperature Pulse Rate 76 79 81 Pulse Rate [ Anterior Bilateral Throughout] Pulse Rate [ From Monitor] Respiratory 24 25 H 23 Rate Respiratory Rate [Anterior Bilateral Throughout] Blood Pressure 143/83 136/87 142/85 O2 Sat by Pulse 100 100 100 Oximetry 10/16/20 10/16/20 10/16/20 06:45 07:00 07:15 Temperature Pulse Rate 78 74 84 Pulse Rate [ Anterior Bilateral Throughout] Pulse Rate [ From Monitor] Respiratory 24 24 27 H Rate Respiratory Rate [Anterior Bilateral Throughout] Blood Pressure 141/89 145/91 139/79 O2 Sat by Pulse 100 100 100 Oximetry 10/16/20 10/16/20 10/16/20 07:30 07:45 08:00 Temperature Pulse Rate 76 83 83 Pulse Rate [ Anterior Bilateral Throughout] Pulse Rate [ 83 From Monitor] Respiratory 25 H 26 H 26 H Rate Respiratory Rate [Anterior Bilateral Throughout] Blood Pressure 144/90 146/92 143/98 O2 Sat by Pulse 100 100 100 Oximetry 10/16/20 10/16/20 10/16/20 08:15 08:30 08:32 Temperature Pulse Rate 77 81 83 Pulse Rate [ Anterior Bilateral Throughout] Pulse Rate [ From Monitor] Respiratory 23 25 H Rate Respiratory Rate [Anterior Bilateral Throughout] Blood Pressure 155/88 150/88 150/88 O2 Sat by Pulse 100 100 100 Oximetry 10/16/20 10/16/20 10/16/20 08:36 08:39 08:45 Temperature Pulse Rate 83 83 Pulse Rate [ 94 H Anterior Bilateral Throughout] Pulse Rate [ From Monitor] Respiratory 28 H 25 H Rate Respiratory 22 Rate [Anterior Bilateral Throughout] Blood Pressure 150/88 146/96 O2 Sat by Pulse 100 100 Oximetry 10/16/20 10/16/20 10/16/20 09:00 09:15 09:30 Temperature Pulse Rate 86 74 73 Pulse Rate [ Anterior Bilateral Throughout] Pulse Rate [ From Monitor] Respiratory 28 H 24 25 H Rate Respiratory Rate [Anterior Bilateral Throughout] Blood Pressure 165/84 158/91 153/85 O2 Sat by Pulse 99 100 99 Oximetry 10/16/20 10/16/20 10/16/20 09:45 10:00 10:15 Temperature Pulse Rate 70 81 77 Pulse Rate [ Anterior Bilateral Throughout] Pulse Rate [ From Monitor] Respiratory 24 28 H 27 H Rate Respiratory Rate [Anterior Bilateral Throughout] Blood Pressure 152/91 155/84 158/98 O2 Sat by Pulse 100 100 100 Oximetry 10/16/20 10:30 Temperature Pulse Rate 82 Pulse Rate [ Anterior Bilateral Throughout] Pulse Rate [ From Monitor] Respiratory 30 H Rate Respiratory Rate [Anterior Bilateral Throughout] Blood Pressure 156/94 O2 Sat by Pulse 100 Oximetry General appearance: Present: obese, other (sedated) - EENT Eyes: PERRL, EOM intact ENT: hearing intact, clear oral mucosa Ears: bilateral: normal - Neck Neck: supple, normal ROM - Respiratory Respiratory effort: other (on vent for respiratory report) Respiratory: bilateral: CTA - Breasts Breasts: normal - Cardiovascular Rhythm: regular Heart Sounds: Present: S1 & S2. Absent: gallop, rub Extremities: pulses intact, No edema, normal color, Full ROM - Gastrointestinal General gastrointestinal: Present: soft, non-tender, non-distended, normal bowel sounds - Genitourinary Female genitourinary: normal - Integumentary Integumentary: clear, warm, dry - Musculoskeletal Musculoskeletal: generalized weakness - Neurologic Neurologic: moves all extremities - Allied health notes Allied health notes reviewed: nursing - Labs CBC & Chem 7: 10/15/20 05:50 10/15/20 05:50 HEART Score - HEART Score Age: < 45 Risk factors: 1-2 risk factors - Critical Actions Critical Actions: >7 pts:50-65% risk of adverse cardiac event. Early invasive measures <DOMINGO BENITEZ - Last Filed: 10/17/20 11:36> Assessment and Plan I did not personally evaluate the patient but reviewed chart and provided virtual support to [facility] helping with surge of patients due to covid pandemic Objective - Constitutional Vitals: Vital Signs - 12hr 10/16/20 10/17/20 10/17/20 23:45 00:00 00:15 Temperature 97.4 F L Pulse Rate 88 75 75 Pulse Rate [ Anterior Bilateral Throughout] Pulse Rate [ 75 From Monitor] Respiratory 18 23 23 Rate Respiratory Rate [Anterior Bilateral Throughout] Blood Pressure 170/99 170/99 149/90 O2 Sat by Pulse 97 100 98 Oximetry 10/17/20 10/17/20 10/17/20 00:30 00:36 00:38 Temperature Pulse Rate 79 69 Pulse Rate [ 88 Anterior Bilateral Throughout] Pulse Rate [ From Monitor] Respiratory 23 Rate Respiratory 27 H Rate [Anterior Bilateral Throughout] Blood Pressure 156/99 156/99 O2 Sat by Pulse 99 100 Oximetry 10/17/20 10/17/20 10/17/20 00:45 01:00 01:15 Temperature Pulse Rate 72 70 71 Pulse Rate [ Anterior Bilateral Throughout] Pulse Rate [ From Monitor] Respiratory 21 19 24 Rate Respiratory Rate [Anterior Bilateral Throughout] Blood Pressure 156/98 156/98 144/87 O2 Sat by Pulse 98 100 98 Oximetry 10/17/20 10/17/20 10/17/20 01:30 01:45 02:00 Temperature Pulse Rate 69 69 67 Pulse Rate [ Anterior Bilateral Throughout] Pulse Rate [ From Monitor] Respiratory 20 15 20 Rate Respiratory Rate [Anterior Bilateral Throughout] Blood Pressure 154/93 145/88 153/102 O2 Sat by Pulse 98 98 99 Oximetry 10/17/20 10/17/20 10/17/20 02:15 02:30 02:45 Temperature Pulse Rate 67 68 68 Pulse Rate [ Anterior Bilateral Throughout] Pulse Rate [ From Monitor] Respiratory 23 19 22 Rate Respiratory Rate [Anterior Bilateral Throughout] Blood Pressure 153/93 153/93 150/99 O2 Sat by Pulse 98 100 99 Oximetry 10/17/20 10/17/20 10/17/20 03:00 03:15 03:30 Temperature Pulse Rate 66 66 68 Pulse Rate [ Anterior Bilateral Throughout] Pulse Rate [ From Monitor] Respiratory 14 24 22 Rate Respiratory Rate [Anterior Bilateral Throughout] Blood Pressure 156/97 149/93 148/94 O2 Sat by Pulse 99 98 97 Oximetry 10/17/20 10/17/20 10/17/20 03:45 03:58 04:00 Temperature 98.8 F Pulse Rate 68 68 Pulse Rate [ Anterior Bilateral Throughout] Pulse Rate [ 68 From Monitor] Respiratory 23 23 Rate Respiratory Rate [Anterior Bilateral Throughout] Blood Pressure 147/86 147/86 O2 Sat by Pulse 98 100 Oximetry 10/17/20 10/17/20 10/17/20 04:15 04:30 04:39 Temperature Pulse Rate 68 66 69 Pulse Rate [ Anterior Bilateral Throughout] Pulse Rate [ From Monitor] Respiratory 21 22 Rate Respiratory Rate [Anterior Bilateral Throughout] Blood Pressure 152/92 150/96 150/96 O2 Sat by Pulse 99 99 100 Oximetry 10/17/20 10/17/20 10/17/20 04:45 05:00 05:15 Temperature Pulse Rate 68 74 69 Pulse Rate [ Anterior Bilateral Throughout] Pulse Rate [ From Monitor] Respiratory 23 20 20 Rate Respiratory Rate [Anterior Bilateral Throughout] Blood Pressure 145/89 156/95 148/89 O2 Sat by Pulse 98 97 98 Oximetry 10/17/20 10/17/20 10/17/20 05:30 05:45 06:00 Temperature Pulse Rate 66 75 70 Pulse Rate [ Anterior Bilateral Throughout] Pulse Rate [ From Monitor] Respiratory 20 20 18 Rate Respiratory Rate [Anterior Bilateral Throughout] Blood Pressure 137/98 149/95 154/91 O2 Sat by Pulse 99 98 99 Oximetry 10/17/20 10/17/20 10/17/20 06:16 06:30 06:45 Temperature Pulse Rate 68 67 69 Pulse Rate [ Anterior Bilateral Throughout] Pulse Rate [ From Monitor] Respiratory 22 22 17 Rate Respiratory Rate [Anterior Bilateral Throughout] Blood Pressure 154/91 192/109 169/103 O2 Sat by Pulse 98 98 98 Oximetry 10/17/20 10/17/20 10/17/20 07:00 07:15 07:20 Temperature Pulse Rate 71 69 75 Pulse Rate [ Anterior Bilateral Throughout] Pulse Rate [ From Monitor] Respiratory 23 22 Rate Respiratory Rate [Anterior Bilateral Throughout] Blood Pressure 169/103 180/105 180/105 O2 Sat by Pulse 100 98 Oximetry 10/17/20 10/17/20 10/17/20 07:21 07:30 07:45 Temperature Pulse Rate 76 79 89 Pulse Rate [ Anterior Bilateral Throughout] Pulse Rate [ From Monitor] Respiratory 21 23 Rate Respiratory Rate [Anterior Bilateral Throughout] Blood Pressure 180/105 180/105 165/81 O2 Sat by Pulse 100 96 Oximetry 10/17/20 10/17/20 10/17/20 08:00 08:15 08:25 Temperature 98.5 F Pulse Rate 87 86 90 Pulse Rate [ Anterior Bilateral Throughout] Pulse Rate [ 87 From Monitor] Respiratory 26 H 25 H Rate Respiratory Rate [Anterior Bilateral Throughout] Blood Pressure 165/81 160/81 160/81 O2 Sat by Pulse 99 96 199 H Oximetry 10/17/20 10/17/20 10/17/20 08:30 08:43 08:45 Temperature Pulse Rate 89 96 H 97 H Pulse Rate [ Anterior Bilateral Throughout] Pulse Rate [ From Monitor] Respiratory 20 27 H Rate Respiratory Rate [Anterior Bilateral Throughout] Blood Pressure 160/81 155/89 174/98 O2 Sat by Pulse 99 97 Oximetry 10/17/20 10/17/20 10/17/20 09:00 09:05 09:15 Temperature Pulse Rate 95 H 95 H 94 H Pulse Rate [ 92 H Anterior Bilateral Throughout] Pulse Rate [ From Monitor] Respiratory 26 H 20 Rate Respiratory 25 H Rate [Anterior Bilateral Throughout] Blood Pressure 174/98 177/101 174/92 O2 Sat by Pulse 99 98 Oximetry 10/17/20 10/17/20 10/17/20 09:30 09:45 10:00 Temperature Pulse Rate 90 96 H 99 H Pulse Rate [ Anterior Bilateral Throughout] Pulse Rate [ From Monitor] Respiratory 25 H 26 H 25 H Rate Respiratory Rate [Anterior Bilateral Throughout] Blood Pressure 174/98 173/89 174/92 O2 Sat by Pulse 99 99 99 Oximetry 10/17/20 10/17/20 10/17/20 10:15 10:30 10:45 Temperature Pulse Rate 96 H 100 H 98 H Pulse Rate [ Anterior Bilateral Throughout] Pulse Rate [ From Monitor] Respiratory 26 H 27 H 31 H Rate Respiratory Rate [Anterior Bilateral Throughout] Blood Pressure 124/73 129/82 131/79 O2 Sat by Pulse 96 97 97 Oximetry 10/17/20 10/17/20 10/17/20 11:00 11:15 11:29 Temperature Pulse Rate 98 H 95 H 98 H Pulse Rate [ Anterior Bilateral Throughout] Pulse Rate [ From Monitor] Respiratory 28 H 25 H Rate Respiratory Rate [Anterior Bilateral Throughout] Blood Pressure 126/86 127/81 147/95 O2 Sat by Pulse 97 96 99 Oximetry - Labs CBC & Chem 7: 10/17/20 04:57 10/15/20 05:50 Labs: Abnormal lab results 10/16/20 10/17/20 10/17/20 Range/Units 11:57 04:57 05:25 WBC 15.2 H (4.5-11.0) K/mm3 RBC 3.43 L (3.65-5.03) M/mm3 RDW 18.1 H (13.2-15.2) % POC Glucose 111 H 107 H (70-105) mg/dL
[2020-10-16] MEDS: hydrALAZINE 20 MG/1 ML INJ IV PRN (11:41)
[2020-10-16] MEDS: fentaNYL 100 MCG/2 ML INJ IV PRN (13:21)
--- NOTE | 2020-10-16 16:23 | Cat Scan Report ---
CT abdomen pelvis w con INDICATION: Persistent fevers, post op 12 days ago. TECHNIQUE: All CT scans at this location are performed using CT dose reduction for ALARA by means of automated e xposure control. COMPARISON: 08/23/2019 FINDINGS: Exam is suboptimal because of patient motion and the inability to raise her arms. Lung bases are clear of acute disease. Cholecystectomy. Liver is slightly enlarged but otherwise nega tive. Spleen, pancreas, kidneys and adrenals are grossly negative. Abdominal aorta is normal in size. No adenopathy. Pelvis Surgical clips in the left lower abdomen along the psoas muscle. Postop change in the rectum. Bladder and uterus are not at all well seen due to motion artifact. No gross acute abnormalities in the pelv is. IMPRESSION: 1. Suboptimal exam. No definite acute abnormality. Signer Name: Mike Quinones MD Signed: 10/16/2020 4:19 PM Workstation Name: [id number]
[2020-10-17] MEDS: IPRATROPIUM/ALBUTEROL SULFATE 3 ML AMPUL.NEB IH SCH ×3 (00:36→16:40)
[2020-10-17] MEDS: VANCOMYCIN 250 MG/10 ML ORAL LIQD PO SCH ×4 (02:05→21:23)
[2020-10-17] MEDS: VANCOMYCIN 1,750 MG in SODIUM CHLORIDE 0.9% 500 ML 500 ML IV SCH ×2 (02:05→14:04)
[2020-10-17] MEDS: INSULIN REGULAR, HUMAN 100 UNIT/ML 3ML VIAL SUB-Q SCH ×6 (03:01→21:17)
--- NOTE | 2020-10-17 03:07 | Progress Note ---
Assessment and Plan - Patient Problems (1) Acute respiratory failure with hypoxia Current Visit: Yes Status: Acute Plan to address problem: remains intubated neurological status unchanged currently C. Diff treatment to be addressed by internal medicine (2) Cardiac arrest Current Visit: Yes Status: Acute (3) DIC (disseminated intravascular coagulation) Current Visit: Yes Status: Acute (4) Encephalopathy Current Visit: Yes Status: Acute Subjective - Subjective Date of service: 10/17/20 Principal diagnosis: Eclampsia/HELLP Syndrome, ADOLPH, DIC; s/p , s/p supracervical hyst Interval history: 30y/o POD #14 s/p supracervical hysterectomy for eclampsia and DIC. Patient remains unresponsive. Patient with temp spike of 100.4 around 1999. Currently afebrile. Patient underwent CT scan of abdomen/pelvis with no significant findings. C. Diff is positive however. Objective - Vital Signs Latest vital signs: Vital Signs Temp Pulse Pulse Pulse Resp Resp BP 10/17/20 00:38 88 27 H 10/17/20 00:36 69 156/99 10/17/20 00:30 79 23 156/99 10/17/20 00:15 75 23 149/90 10/17/20 00:00 97.4 F L 75 75 23 170/99 10/16/20 23:45 88 18 170/99 10/16/20 23:30 91 H 22 162/106 10/16/20 23:15 82 24 152/96 10/16/20 23:00 81 21 153/91 10/16/20 22:45 82 23 155/94 10/16/20 22:30 84 19 152/95 10/16/20 22:15 88 20 153/95 10/16/20 22:00 93 H 33 H 140/86 10/16/20 21:45 93 H 19 140/86 10/16/20 21:30 87 17 120/71 10/16/20 21:15 86 17 120/74 10/16/20 21:00 88 26 H 123/70 10/16/20 20:46 87 21 127/70 10/16/20 20:45 88 22 127/70 10/16/20 20:30 96 H 17 128/81 10/16/20 20:29 96 H 128/81 10/16/20 20:15 103 H 30 H 138/82 10/16/20 20:08 99 H 133/79 10/16/20 20:00 100.4 F H 95 H 95 H 38 H 133/79 10/16/20 19:45 87 22 125/80 10/16/20 19:30 79 23 124/77 10/16/20 19:15 81 22 132/74 10/16/20 19:00 87 20 133/87 10/16/20 18:45 81 20 131/80 10/16/20 18:30 87 18 139/85 10/16/20 18:15 94 H 15 130/83 10/16/20 18:00 91 H 91 H 19 22 131/81 10/16/20 17:57 92 H 130/78 10/16/20 17:45 91 H 24 189/111 10/16/20 17:31 93 H 26 H 189/111 10/16/20 17:15 83 18 189/111 10/16/20 17:01 81 24 189/111 10/16/20 16:45 83 25 H 181/92 10/16/20 16:30 92 H 12 181/92 10/16/20 16:15 91 H 28 H 162/84 10/16/20 16:00 99.8 F H 88 84 23 162/84 10/16/20 15:45 86 25 H 155/88 10/16/20 15:30 88 21 163/85 10/16/20 15:15 90 22 154/84 10/16/20 15:00 90 25 H 154/91 10/16/20 14:45 90 23 152/84 10/16/20 14:39 90 161/92 10/16/20 14:31 91 H 22 161/92 10/16/20 14:29 90 26 H 148/83 10/16/20 13:45 95 H 25 H 148/83 10/16/20 13:30 91 H 23 156/81 10/16/20 13:15 102 H 30 H 180/87 10/16/20 13:01 103 H 29 H 180/87 10/16/20 12:45 107 H 33 H 206/118 10/16/20 12:31 105 H 34 H 206/118 10/16/20 12:15 97 H 29 H 141/75 10/16/20 12:01 91 H 24 164/52 10/16/20 12:00 100.7 F H 100 H 91 H 24 10/16/20 11:45 91 H 30 H 180/76 10/16/20 11:41 85 180/76 10/16/20 11:34 86 182/53 10/16/20 11:31 85 29 H 162/96 10/16/20 11:15 81 14 162/96 10/16/20 11:00 71 22 162/96 10/16/20 10:45 74 22 157/90 10/16/20 10:30 82 30 H 156/94 10/16/20 10:15 77 27 H 158/98 10/16/20 10:00 81 28 H 155/84 10/16/20 09:45 70 24 152/91 10/16/20 09:30 73 25 H 153/85 10/16/20 09:15 74 24 158/91 10/16/20 09:00 86 28 H 165/84 10/16/20 08:45 83 25 H 146/96 10/16/20 08:39 94 H 22 10/16/20 08:36 83 28 H 150/88 10/16/20 08:32 83 150/88 10/16/20 08:30 81 25 H 150/88 10/16/20 08:15 77 23 155/88 10/16/20 08:00 100.1 F H 87 83 26 H 143/98 10/16/20 07:45 83 26 H 146/92 10/16/20 07:30 76 25 H 144/90 10/16/20 07:15 84 27 H 139/79 10/16/20 07:00 74 24 145/91 10/16/20 06:45 78 24 141/89 10/16/20 06:30 81 23 142/85 10/16/20 06:15 79 25 H 136/87 10/16/20 06:00 76 24 143/83 10/16/20 05:45 78 22 141/80 10/16/20 05:30 84 25 H 147/83 10/16/20 05:15 82 22 136/79 10/16/20 05:00 81 23 136/79 10/16/20 04:45 86 21 134/84 10/16/20 04:43 86 137/78 10/16/20 04:30 78 23 137/78 10/16/20 04:15 77 23 130/69 10/16/20 04:00 99 F 78 79 22 146/78 10/16/20 03:45 76 22 138/69 10/16/20 03:30 77 22 139/76 10/16/20 03:15 76 24 130/73 Pulse Ox 10/17/20 00:38 10/17/20 00:36 100 10/17/20 00:30 99 10/17/20 00:15 98 10/17/20 00:00 100 10/16/20 23:45 97 10/16/20 23:30 98 10/16/20 23:15 97 10/16/20 23:00 98 10/16/20 22:45 98 10/16/20 22:30 97 10/16/20 22:15 96 10/16/20 22:00 100 10/16/20 21:45 98 10/16/20 21:30 98 10/16/20 21:15 99 10/16/20 21:00 97 10/16/20 20:46 100 10/16/20 20:45 98 10/16/20 20:30 97 10/16/20 20:29 100 10/16/20 20:15 100 10/16/20 20:08 10/16/20 20:00 99 10/16/20 19:45 99 10/16/20 19:30 99 10/16/20 19:15 99 10/16/20 19:00 99 10/16/20 18:45 99 10/16/20 18:30 100 10/16/20 18:15 100 10/16/20 18:00 100 10/16/20 17:57 100 10/16/20 17:45 100 10/16/20 17:31 99 10/16/20 17:15 100 10/16/20 17:01 100 10/16/20 16:45 100 10/16/20 16:30 100 10/16/20 16:15 99 10/16/20 16:00 100 10/16/20 15:45 100 10/16/20 15:30 100 10/16/20 15:15 100 10/16/20 15:00 100 10/16/20 14:45 100 10/16/20 14:39 10/16/20 14:31 100 10/16/20 14:29 100 10/16/20 13:45 99 10/16/20 13:30 100 10/16/20 13:15 99 10/16/20 13:01 99 10/16/20 12:45 98 10/16/20 12:31 99 10/16/20 12:15 99 10/16/20 12:01 99 10/16/20 12:00 99 10/16/20 11:45 100 10/16/20 11:41 10/16/20 11:34 100 10/16/20 11:31 100 10/16/20 11:15 97 10/16/20 11:00 100 10/16/20 10:45 100 10/16/20 10:30 100 10/16/20 10:15 100 10/16/20 10:00 100 10/16/20 09:45 100 10/16/20 09:30 99 10/16/20 09:15 100 10/16/20 09:00 99 10/16/20 08:45 100 10/16/20 08:39 10/16/20 08:36 100 10/16/20 08:32 100 10/16/20 08:30 100 10/16/20 08:15 100 10/16/20 08:00 100 10/16/20 07:45 10/16/20 07:30 100 10/16/20 07:15 100 10/16/20 07:00 100 10/16/20 06:45 100 10/16/20 06:30 100 10/16/20 06:15 100 10/16/20 06:00 100 10/16/20 05:45 100 10/16/20 05:30 100 10/16/20 05:15 99 10/16/20 05:00 100 10/16/20 04:45 99 10/16/20 04:43 100 10/16/20 04:30 99 10/16/20 04:15 100 10/16/20 04:00 100 10/16/20 03:45 99 10/16/20 03:30 100 10/16/20 03:15 99 Intake and Output 10/16/20 10/16/20 10/17/20 14:59 22:59 06:59 Intake Total 2236.218 1090 230 Output Total 1400 1650 Balance 836.218 -560 230 Intake: IV 1681.218 370 CEFEPIME/NS 2 GM/100 ML 2 100 gm In 100 ml @ 200 mls/ hr IV Q12HR [facility] Rx#: [id number] D10w 1,000 ml @ 75 mls/hr 1000 IV DIRECT ERINN Rx#: [id number] FLAGYL 500 MG/100 ML 500 100 mg In 100 ml @ 100 mls/hr IV Q8H [facility] Rx#:[id number] Right Antecubital 10 10 dexmedeTOMIDine 1,000 MCG 571.218 260 In NaCl 0.9% 250Ml 250 ml @ 0.2 MCG/KG/HR 7.249 mls/hr IV TITRATE [facility] Rx# :[id number] Intake, Free Water 100 200 100 Tube Feeding 455 520 130 Output: Urine 1400 1650 Indwelling Catheter 1400 1650 Other: Total, Intake Amount 65 65 65 Total, Output Amount 1400 950 Voiding Method Indwelling Catheter Indwelling Catheter Indwelling Catheter - Labs Labs: Abnormal lab results 10/16/20 Range/Units 11:57 POC Glucose 111 H (70-105) mg/dL
[2020-10-17] MEDS: DEXTROSE 10% IN WATER 1,000 ML IV SCH ×2 (03:21→18:47)
[2020-10-17] MEDS: dexmedeTOMIDine 1,000 MCG in SODIUM CHLORIDE 0.9% 250ML 250 ML IV SCH ×4 (03:26→21:19)
[2020-10-17 05:24] LABS: Hematocrit 31.2 % (30.3-42.9); Hemoglobin 10.1 gm/dl (10.1-14.3); Mean Corpuscular HGB Conc 32 % (30-34); Mean Corpuscular Volume 91 fl (79-97); Platelet Count 366 K/mm3 (140-440); Red Blood Count 3.43 M/mm3 (3.65-5.03); Red Cell Distribution Width 18.1 % (13.2-15.2)
[2020-10-17] MEDS: metroNIDAZOLE/NS 500 MG/100 ML 500 MG/100 ML BAG IV SCH ×3 (05:34→22:47)
[2020-10-17] MEDS: hydrALAZINE 20 MG/1 ML INJ IV PRN (07:20)
--- NOTE | 2020-10-17 08:22 | Progress Note ---
Assessment and Plan 30 y/o female with Eclampsia, s/p emergent section with DIC, acute respiratory failure and worsening renal function. 10/17/20: CT scan was of no help in regards to fevers. C. Diff is positive and BP now is more uncontrolled despite increasing labetalol. Today will increase to 300 TID. Added TID Hydralazine and added PO lasix given her mild pulmonary htn seen on echo. Spoke with mother over the phone and she requests to come see the patient. Given current circumstances, will allow her to come briefly today and then will speak with her at the bedside. No neurology is available at the time and suspect these will be the majority of her questions. Tolerated PSV briefly yesterday and will do again today but not for extended periods as given her mental state she is not a candidate for extubation. I will also ask the mother about intermediate care (trach and peg) when she comes today. Overall prognosis is guarded to poor. If oral meds cannot regulate blood pressure, may need Cardene drip. Continue therapy for C. Diff per ID. 10/16/20: Needs a different consent for CT of abdomen and pelvis. I have signed the one in the chart. The nurse who obtained the first consent did obtain consent for contrast, it just wasn't listed on the that consent. Await neurology input on EEG vs MRI findings. Patient has now been intubated 14 days. Need to have family meeting to discuss goals of care but I suspect family will want to hear from Neurology as well. Tolerating PSV trials but will only do briefly as patient is not a candidate for extubation today. Will increase labetalol to 200 TID based on MRI report. Overall prognosis is guarded to poor. 10/15/2020: MRI and CT's today. Continue Precedex and PRN fent pushes. ID ordered C. Diff test. Continue D10 and tube feeds. Continue vent support. Suspect patient will need trach and peg. 10/14/2020: Await MRI. Continue Precedex and only use PRN fent pushes. CM states that there is a . Now with persistent fever, will obtain CT ab domen pelvis with contrast to see if source for fevers can be found. Continue D10 as sugars are still not elevated. 10/12/2020: Patient seen on 10/12 but note entered late. Formal neurology consult today. Hold all sedation if possible and only use precedex. CM to find out if there is truly a or if the decisions would fall on mother as I do not know the ages of her children but I don't think they are of age to make decisions. Guarded prognosis given mental state. 10/08/2020: Will start patient on precedex today. Plan is to wean off fent drip. Will increase buspar to BID. Need to see patient on as little sedation as possible to determine neurological status. EEG has still not been read. Mag stopped yesterday. Largest concern now is neurologic function. 10/07/2020: Head CT unremarkable. Await EEG to be read. Will stop mag Drip. If seizures occur then will load with Keppra and start BID dosing of this. Appreciate OB note. Continue D10 as sugars are still not severely elevated until feeds are at goal. PRN ativan present as well. Will add dilaudid for pain control. Increased BB to TID and added PRN hydralazine 10/06/2020: Stat Head CT today. Likely needs EEG. Will order. Continue Mag drip and follow up levels. Continue feeds. Continue to wean FiO2 as tolerated. Hold sedatives but can give PRN ativan as needed for seizure activity. Continue D10 as Tube feeds are not at goal yet. Guarded prognosis with mental state. 10/05/2020: Feed today. Stop Albumin and Abx. Will stop D10 once feeds start but will continue q2 hour FSBS until 3 consecutive >180. H/H stable. Will continue to aggressively wean FiO2. Patient has a 6.5 tube that will likely impede PSV trials given her size so will attempt to change out. Also will restart her home meds for anxiety and chronic migraine therapy. Prognosis is still guarded but promising given her hemodynamic stability. Continue chowdhury for accurate urine out put. 10/04/2020: Much improved today. Still very ill however. Down to just one pressor. Still with good urine output. Await chemistry results from this am. Likely can stop Bicarb drip given improvement in pH but would like to see bicarb on blood work. Agree with continued transfusion of blood products. Needs fibrinongen levels as well as repeat coags. I cannot see the standing orders on my screen so will call down to lab and let them know what's needed. I know she has had at leas 2 cryo's but I am not exactly sure if the count is accurate in the computer in regards to PRBC's and FFP's. Platelets lower this am but still greater than 30K. Continue chowdhury for I/O measurement. Will start to wean FiO2 on vent. CXR looks like edema but oxygenation is stable right now. Resuscitation is the most important thing right now. Will continue abx therapy at least 24 more hours. Prognosis is still very guarded but patient showing signs of improvement. 1. CV-Extremely volume deplete as well as intrasvascular depletion. Will continue to bolus with LR and saline as needed. Will add Albumin to help with intravascular volume. Spoke with OB attending over phone yesterday. No acute indication for steroids at this time. Serial H/H's given maximum pressor requirements. Will transfuse to keep up with AVINASH drain and help with weaning. Severely acidotic but improving. Likely adding to pressor requirement. GOAL is map of 65 and will wean accordingly. Will start to wean Sohail first. Ordered art line as well. 2. Heme-DIC secondary to Eclampsia, possible sepsis but white count could be stress related. Will continue to transfuse PRBC's and FFP with Cryo as needed. Follow Fibrinogen levels. Tele Heme has been consulted and note reviewed. Will give one cryo for every 6 units of PRBC's transfused. has gotten one cryo, awaiting the other to thaw out. Plts at 72K right now. Hold on further transfusion. May need to consider Factor VII if execessive bleeding continues. Will also put on broad spec abx therapy incase of possible sepsis causing DIC. Hopeful with correction of coaguloapthy she will improve. 3. Very very guarded prognosis. Will continue aggressive resuscitation. Family to come visit given exceptional case and extremely guarded prognosis. CCT 31 minutes. Subjective Date of service: 10/17/20 Principal diagnosis: Eclampsia/HELLP Syndrome, ADOLPH, DIC; s/p , s/p supracervical hyst Interval history: No acute events overnight. C. Diff came back positive. Continues to be febrile. Remains unresponsive. CT scan was suboptimal. Objective Vital Signs - 12hr 10/16/20 10/16/20 10/16/20 20:29 20:30 20:45 Temperature Pulse Rate 96 H 96 H 88 Pulse Rate [ Anterior Bilateral Throughout] Pulse Rate [ From Monitor] Respiratory 17 22 Rate Respiratory Rate [Anterior Bilateral Throughout] Blood Pressure 128/81 128/81 127/70 O2 Sat by Pulse 100 97 98 Oximetry 10/16/20 10/16/20 10/16/20 20:46 21:00 21:15 Temperature Pulse Rate 87 88 86 Pulse Rate [ Anterior Bilateral Throughout] Pulse Rate [ From Monitor] Respiratory 21 26 H 17 Rate Respiratory Rate [Anterior Bilateral Throughout] Blood Pressure 127/70 123/70 120/74 O2 Sat by Pulse 100 97 99 Oximetry 10/16/20 10/16/20 10/16/20 21:30 21:45 22:00 Temperature Pulse Rate 87 93 H 93 H Pulse Rate [ Anterior Bilateral Throughout] Pulse Rate [ From Monitor] Respiratory 17 19 33 H Rate Respiratory Rate [Anterior Bilateral Throughout] Blood Pressure 120/71 140/86 140/86 O2 Sat by Pulse 98 98 100 Oximetry 10/16/20 10/16/20 10/16/20 22:15 22:30 22:45 Temperature Pulse Rate 88 84 82 Pulse Rate [ Anterior Bilateral Throughout] Pulse Rate [ From Monitor] Respiratory 20 19 23 Rate Respiratory Rate [Anterior Bilateral Throughout] Blood Pressure 153/95 152/95 155/94 O2 Sat by Pulse 96 97 98 Oximetry 10/16/20 10/16/20 10/16/20 23:00 23:15 23:30 Temperature Pulse Rate 81 82 91 H Pulse Rate [ Anterior Bilateral Throughout] Pulse Rate [ From Monitor] Respiratory 21 24 22 Rate Respiratory Rate [Anterior Bilateral Throughout] Blood Pressure 153/91 152/96 162/106 O2 Sat by Pulse 98 97 98 Oximetry 10/16/20 10/17/20 10/17/20 23:45 00:00 00:15 Temperature 97.4 F L Pulse Rate 88 75 75 Pulse Rate [ Anterior Bilateral Throughout] Pulse Rate [ 75 From Monitor] Respiratory 18 23 23 Rate Respiratory Rate [Anterior Bilateral Throughout] Blood Pressure 170/99 170/99 149/90 O2 Sat by Pulse 97 100 98 Oximetry 10/17/20 10/17/20 10/17/20 00:30 00:36 00:38 Temperature Pulse Rate 79 69 Pulse Rate [ 88 Anterior Bilateral Throughout] Pulse Rate [ From Monitor] Respiratory 23 Rate Respiratory 27 H Rate [Anterior Bilateral Throughout] Blood Pressure 156/99 156/99 O2 Sat by Pulse 99 100 Oximetry 10/17/20 10/17/20 10/17/20 00:45 01:00 01:15 Temperature Pulse Rate 72 70 71 Pulse Rate [ Anterior Bilateral Throughout] Pulse Rate [ From Monitor] Respiratory 21 19 24 Rate Respiratory Rate [Anterior Bilateral Throughout] Blood Pressure 156/98 156/98 144/87 O2 Sat by Pulse 98 100 98 Oximetry 10/17/20 10/17/20 10/17/20 01:30 01:45 02:00 Temperature Pulse Rate 69 69 67 Pulse Rate [ Anterior Bilateral Throughout] Pulse Rate [ From Monitor] Respiratory 20 15 20 Rate Respiratory Rate [Anterior Bilateral Throughout] Blood Pressure 154/93 145/88 153/102 O2 Sat by Pulse 98 98 99 Oximetry 10/17/20 10/17/20 10/17/20 02:15 02:30 02:45 Temperature Pulse Rate 67 68 68 Pulse Rate [ Anterior Bilateral Throughout] Pulse Rate [ From Monitor] Respiratory 23 19 22 Rate Respiratory Rate [Anterior Bilateral Throughout] Blood Pressure 153/93 153/93 150/99 O2 Sat by Pulse 98 100 99 Oximetry 10/17/20 10/17/20 10/17/20 03:00 03:15 03:30 Temperature Pulse Rate 66 66 68 Pulse Rate [ Anterior Bilateral Throughout] Pulse Rate [ From Monitor] Respiratory 14 24 22 Rate Respiratory Rate [Anterior Bilateral Throughout] Blood Pressure 156/97 149/93 148/94 O2 Sat by Pulse 99 98 97 Oximetry 10/17/20 10/17/20 10/17/20 03:45 03:58 04:00 Temperature 98.8 F Pulse Rate 68 68 Pulse Rate [ Anterior Bilateral Throughout] Pulse Rate [ 68 From Monitor] Respiratory 23 23 Rate Respiratory Rate [Anterior Bilateral Throughout] Blood Pressure 147/86 147/86 O2 Sat by Pulse 98 100 Oximetry 10/17/20 10/17/20 10/17/20 04:15 04:30 04:39 Temperature Pulse Rate 68 66 69 Pulse Rate [ Anterior Bilateral Throughout] Pulse Rate [ From Monitor] Respiratory 21 22 Rate Respiratory Rate [Anterior Bilateral Throughout] Blood Pressure 152/92 150/96 150/96 O2 Sat by Pulse 99 99 100 Oximetry 10/17/20 10/17/20 10/17/20 04:45 05:00 05:15 Temperature Pulse Rate 68 74 69 Pulse Rate [ Anterior Bilateral Throughout] Pulse Rate [ From Monitor] Respiratory 23 20 20 Rate Respiratory Rate [Anterior Bilateral Throughout] Blood Pressure 145/89 156/95 148/89 O2 Sat by Pulse 98 97 98 Oximetry 10/17/20 10/17/20 10/17/20 05:30 05:45 06:00 Temperature Pulse Rate 66 75 70 Pulse Rate [ Anterior Bilateral Throughout] Pulse Rate [ From Monitor] Respiratory 20 20 18 Rate Respiratory Rate [Anterior Bilateral Throughout] Blood Pressure 137/98 149/95 154/91 O2 Sat by Pulse 99 98 99 Oximetry 10/17/20 10/17/20 10/17/20 06:16 06:30 06:45 Temperature Pulse Rate 68 67 69 Pulse Rate [ Anterior Bilateral Throughout] Pulse Rate [ From Monitor] Respiratory 22 22 17 Rate Respiratory Rate [Anterior Bilateral Throughout] Blood Pressure 154/91 192/109 169/103 O2 Sat by Pulse 98 98 98 Oximetry 10/17/20 10/17/20 10/17/20 07:00 07:15 07:20 Temperature Pulse Rate 71 69 75 Pulse Rate [ Anterior Bilateral Throughout] Pulse Rate [ From Monitor] Respiratory 23 22 Rate Respiratory Rate [Anterior Bilateral Throughout] Blood Pressure 169/103 180/105 180/105 O2 Sat by Pulse 100 98 Oximetry 10/17/20 10/17/20 10/17/20 07:21 07:30 07:45 Temperature Pulse Rate 76 79 89 Pulse Rate [ Anterior Bilateral Throughout] Pulse Rate [ From Monitor] Respiratory 21 23 Rate Respiratory Rate [Anterior Bilateral Throughout] Blood Pressure 180/105 180/105 165/81 O2 Sat by Pulse 100 96 Oximetry Constitutional: comatose, other (critically ill on ventilator) Eyes: non-icteric ENT: oropharynx moist, other (orally intubated and not sedated) Neck: other (large in cirumference) Effort: normal Ascultation: Bilateral: clear, diminished breath sounds, other (coarse BS bilaterally w/ mild faint wheezes) Percussion: Bilateral: not dull Cardiovascular: regular rate and rhythm, other (no mrg) Gastrointestinal: normoactive bowel sounds, soft, other (post surgical changes with drain on the left side) Extremities: no cyanosis, pink and warm, anasarca Neurologic: other (unresponsive, not following commands, not tracking) Psychiatric: other (unable to assess) CBC and BMP: 10/17/20 04:57 10/15/20 05:50 ABG, PT/INR, D-dimer: ABG ABG pH 7.473 (7.320-7.450) H 10/13/20 07:18 POC ABG pCO2 20.7 mmHg (32.0-48.0) L 10/13/20 07:18 ABG pCO2 25.0 mm Hg 10/10/20 04:42 POC ABG pO2 137.9 mmHg (83-108) H 10/13/20 07:18 ABG pO2 95.2 mm Hg (80.0-90.0) H 10/10/20 04:42 POC ABG HCO3 14.8 10/13/20 07:18 ABG O2 Saturation 97.9 % (95.0-99.0) 10/10/20 04:42 PT/INR, D-dimer PT 13.0 Sec. (12.2-14.9) 10/05/20 05:00 INR 1.00 (0.87-1.13) 10/05/20 05:00 D-Dimer > 36598 ng/mlDDU (0-234) H 10/04/20 10:00 Abnormal lab findings: Abnormal Labs 10/02/20 10/02/20 10/02/20 12:03 12:18 12:18 WBC 14.9 H RBC Hgb 9.1 L Hct MCV MCH 22 L MCHC 28 L RDW 17.6 H Plt Count 102 L Lymph % (Auto) Foster % (Auto) Lymph # (Auto) Foster # (Auto) Seg Neutrophils % Seg Neuts % (Manual) 36.0 L Lymphocytes % (Manual) 49.0 H Monocytes % (Manual) Nucleated RBC % 6.0 H Seg Neutrophils # Seg Neutrophils # Man Lymphocytes # (Manual) 7.3 H Monocytes # (Manual) PT INR APTT Fibrinogen D-Dimer ABG pH POC ABG pCO2 POC ABG pO2 ABG pO2 ABG HCO3 ABG Base Excess ABG Hemoglobin ABG Oxyhemoglobin ABG Sodium ABG Potassium ABG Chloride ABG Glucose VBG pH Oxyhemoglobin Carboxyhemoglobin Sodium 134 L Potassium Chloride Carbon Dioxide 12 L BUN 6 L Creatinine Glucose 390 H POC Glucose 451 H Lactic Acid Calcium Ionized Calcium Magnesium AST 135 H ALT 85 H Alkaline Phosphatase 172 H Lactate Dehydrogenase 641 H NT-Pro-B Natriuret Pep Total Protein 5.4 L Albumin 2.3 L Arterial Blood Glucose Arterial Blood Ionized Calcium Urine WBC (Auto) Phenytoin Crossmatch 10/02/20 10/02/2010/02/20 12:50 13:05 13:05 WBC 38.6 H RBC Hgb 8.9 L Hct 29.0 L MCV 73 L MCH 22 L MCHC RDW 17.2 H Plt Count Lymph % (Auto) Foster % (Auto) Lymph # (Auto) Foster # (Auto) Seg Neutrophils % Seg Neuts % (Manual) Lymphocytes % (Manual) Monocytes % (Manual) Nucleated RBC % 2.0 H Seg Neutrophils # Seg Neutrophils # Man 20.1 H Lymphocytes # (Manual) 10.4 H Monocytes # (Manual) 2.3 H PT INR APTT Fibrinogen D-Dimer ABG pH POC ABG pCO2 POC ABG pO2 ABG pO2 ABG HCO3 ABG Base Excess ABG Hemoglobin ABG Oxyhemoglobin ABG Sodium ABG Potassium ABG Chloride ABG Glucose VBG pH Oxyhemoglobin Carboxyhemoglobin Sodium Potassium Chloride Carbon Dioxide BUN Creatinine Glucose POC Glucose Lactic Acid Calcium Ionized Calcium Magnesium AST 184 H ALT 113 H Alkaline Phosphatase Lactate Dehydrogenase 769 H NT-Pro-B Natriuret Pep Total Protein Albumin Arterial Blood Glucose Arterial Blood Ionized Calcium Urine WBC (Auto) Phenytoin Crossmatch See Detail 10/02/20 10/02/20 10/02/20 16:25 16:35 16:35 WBC RBC Hgb Hct MCV MCH MCHC RDW Plt Count Lymph % (Auto) Foster % (Auto) Lymph # (Auto) Foster # (Auto) Seg Neutrophils % Seg Neuts % (Manual) Lymphocytes % (Manual) Monocytes % (Manual) Nucleated RBC % Seg Neutrophils # Seg Neutrophils # Man Lymphocytes # (Manual) Monocytes # (Manual) PT INR APTT Fibrinogen D-Dimer ABG pH 7.031 L* POC ABG pCO2 POC ABG pO2 ABG pO2 116.8 H ABG HCO3 12.7 L ABG Base Excess -16.9 L ABG Hemoglobin 7.8 L ABG Oxyhemoglobin ABG Sodium ABG Potassium ABG Chloride ABG Glucose VBG pH Oxyhemoglobin 94.9 L Carboxyhemoglobin Sodium Potassium Chloride Carbon Dioxide BUN Creatinine Glucose 403 H POC Glucose Lactic Acid 11.40 H* Calcium 6.3 L D Ionized Calcium Magnesium AST 70 H ALT Alkaline Phosphatase Lactate Dehydrogenase NT-Pro-B Natriuret Pep Total Protein 1.9 L D Albumin 1.2 L Arterial Blood Glucose Arterial Blood Ionized Calcium Urine WBC (Auto) Phenytoin Crossmatch 10/02/20 10/02/20 10/02/20 18:18 18:18 22:30 WBC 11.5 H RBC 2.06 L Hgb 5.5 L* D Hct 17.3 L* D MCV MCH 27 L MCHC RDW 19.5 H Plt Count 60 L Lymph % (Auto) Foster % (Auto) Lymph # (Auto) Foster # (Auto) Seg Neutrophils % Seg Neuts % (Manual) Lymphocytes % (Manual) 8.0 L Monocytes % (Manual) 8.0 H Nucleated RBC % 8.0 H Seg Neutrophils # Seg Neutrophils # Man Lymphocytes # (Manual) 0.9 L Monocytes # (Manual) 0.9 H PT 37.1 H INR 3.71 H APTT 135.8 H* Fibrinogen D-Dimer ABG pH 7.067 L* POC ABG pCO2 POC ABG pO2 ABG pO2 183.0 H ABG HCO3 14.1 L ABG Base Excess -15.1 L ABG Hemoglobin 7.7 L ABG Oxyhemoglobin ABG Sodium ABG Potassium ABG Chloride ABG Glucose VBG pH Oxyhemoglobin Carboxyhemoglobin Sodium Potassium Chloride Carbon Dioxide BUN Creatinine Glucose POC Glucose Lactic Acid Calcium Ionized Calcium Magnesium AST ALT Alkaline Phosphatase Lactate Dehydrogenase NT-Pro-B Natriuret Pep Total Protein Albumin Arterial Blood Glucose Arterial Blood Ionized Calcium Urine WBC (Auto) Phenytoin Crossmatch 10/02/20 10/02/20 10/03/20 Unknown Unknown 00:01 WBC RBC Hgb Hct MCV MCH MCHC RDW Plt Count Lymph % (Auto) Foster % (Auto) Lymph # (Auto) Foster # (Auto) Seg Neutrophils % Seg Neuts % (Manual) Lymphocytes % (Manual) Monocytes % (Manual) Nucleated RBC % Seg Neutrophils # Seg Neutrophils # Man Lymphocytes # (Manual) Monocytes # (Manual) PT 61.1 H INR 6.92 H* APTT 158.7 H* Fibrinogen < 60 L* D-Dimer > 78644 H ABG pH POC ABG pCO2 POC ABG pO2 ABG pO2 ABG HCO3 ABG Base Excess ABG Hemoglobin ABG Oxyhemoglobin ABG Sodium ABG Potassium ABG Chloride ABG Glucose VBG pH 6.949 L* Oxyhemoglobin Carboxyhemoglobin Sodium Potassium Chloride Carbon Dioxide BUN Creatinine Glucose POC Glucose 196 H Lactic Acid Calcium Ionized Calcium Magnesium AST ALT Alkaline Phosphatase Lactate Dehydrogenase NT-Pro-B Natriuret Pep Total Protein Albumin Arterial Blood Glucose Arterial Blood Ionized Calcium Urine WBC (Auto) Phenytoin Crossmatch 10/03/20 10/03/20 10/03/20 00:40 00:40 00:40 WBC RBC Hgb Hct MCV MCH MCHC RDW Plt Count Lymph % (Auto) Foster % (Auto) Lymph # (Auto) Foster # (Auto) Seg Neutrophils % Seg Neuts % (Manual) Lymphocytes % (Manual) Monocytes % (Manual) Nucleated RBC % Seg Neutrophils # Seg Neutrophils # Man Lymphocytes # (Manual) Monocytes # (Manual) PT 15.1 H INR 1.21 H APTT Fibrinogen D-Dimer ABG pH POC ABG pCO2 POC ABG pO2 ABG pO2 ABG HCO3 ABG Base Excess ABG Hemoglobin ABG Oxyhemoglobin ABG Sodium ABG Potassium ABG Chloride ABG Glucose VBG pH Oxyhemoglobin Carboxyhemoglobin Sodium 136 L Potassium Chloride Carbon Dioxide BUN Creatinine 1.6 H D Glucose 106 H POC Glucose Lactic Acid 5.60 H* Calcium 6.5 L Ionized Calcium Magnesium AST 232 H ALT 104 H Alkaline Phosphatase Lactate Dehydrogenase NT-Pro-B Natriuret Pep Total Protein 3.9 L D Albumin 2.4 L Arterial Blood Glucose Arterial Blood Ionized Calcium Urine WBC (Auto) Phenytoin Crossmatch 10/03/20 10/03/20 10/03/20 02:08 02:08 02:08 WBC 17.6 H RBC 3.27 L Hgb 9.9 L D Hct 29.9 L D MCV MCH MCHC RDW 16.5 H Plt Count 75 L Lymph % (Auto) Foster % (Auto) Lymph # (Auto) Foster # (Auto) Seg Neutrophils % Seg Neuts % (Manual) 76.0 H Lymphocytes % (Manual) Monocytes % (Manual) Nucleated RBC % 8.0 H Seg Neutrophils # Seg Neutrophils # Man 13.4 H Lymphocytes # (Manual) Monocytes # (Manual) PT INR APTT Fibrinogen D-Dimer ABG pH POC ABG pCO2 POC ABG pO2 ABG pO2 ABG HCO3 ABG Base Excess ABG Hemoglobin ABG Oxyhemoglobin ABG Sodium ABG Potassium ABG Chloride ABG Glucose VBG pH Oxyhemoglobin Carboxyhemoglobin Sodium Potassium Chloride Carbon Dioxide 19 L BUN Creatinine 1.4 H Glucose 306 H POC Glucose Lactic Acid 10.50 H* Calcium 6.4 L Ionized Calcium Magnesium AST ALT Alkaline Phosphatase Lactate Dehydrogenase NT-Pro-B Natriuret Pep Total Protein Albumin Arterial Blood Glucose Arterial Blood Ionized Calcium Urine WBC (Auto) Phenytoin Crossmatch 10/03/20 10/03/20 10/03/20 02:42 03:59 05:31 WBC RBC Hgb Hct MCV MCH MCHC RDW Plt Count Lymph % (Auto) Foster % (Auto) Lymph # (Auto) Foster # (Auto) Seg Neutrophils % Seg Neuts % (Manual) Lymphocytes % (Manual) Monocytes % (Manual) Nucleated RBC % Seg Neutrophils # Seg Neutrophils # Man Lymphocytes # (Manual) Monocytes # (Manual) PT INR APTT Fibrinogen D-Dimer ABG pH 7.144 L POC ABG pCO2 54.4 H POC ABG pO2 ABG pO2 ABG HCO3 ABG Base Excess ABG Hemoglobin 10.0 L ABG Oxyhemoglobin ABG Sodium ABG Potassium ABG Chloride 108.0 H ABG Glucose 306 H VBG pH Oxyhemoglobin Carboxyhemoglobin Sodium Potassium Chloride Carbon Dioxide BUN Creatinine Glucose POC Glucose 209 H Lactic Acid 9.20 H* Calcium Ionized Calcium Magnesium AST ALT Alkaline Phosphatase Lactate Dehydrogenase NT-Pro-B Natriuret Pep Total Protein Albumin Arterial Blood Glucose 306 H Arterial Blood Ionized Calcium 3.7 L Urine WBC (Auto) Phenytoin Crossmatch 10/03/20 10/03/20 10/03/20 09:00 09:00 09:00 WBC 27.4 H RBC 2.84 L Hgb 8.5 L Hct 25.1 L MCV MCH MCHC RDW 16.1 H Plt Count 72 L Lymph % (Auto) Foster % (Auto) Lymph # (Auto) Foster # (Auto) Seg Neutrophils % Seg Neuts % (Manual) Lymphocytes % (Manual) 11.0 L Monocytes % (Manual) Nucleated RBC % 3.0 H Seg Neutrophils # Seg Neutrophils # Man 18.4 H Lymphocytes # (Manual) Monocytes # (Manual) 1.9 H PT INR APTT Fibrinogen D-Dimer ABG pH POC ABG pCO2 POC ABG pO2 ABG pO2 ABG HCO3 ABG Base Excess ABG Hemoglobin ABG Oxyhemoglobin ABG Sodium ABG Potassium ABG Chloride ABG Glucose VBG pH Oxyhemoglobin Carboxyhemoglobin Sodium Potassium Chloride Carbon Dioxide BUN Creatinine 1.7 H Glucose 216 H POC Glucose Lactic Acid 9.20 H* Calcium 6.3 L Ionized Calcium Magnesium AST 331 H ALT 171 H Alkaline Phosphatase Lactate Dehydrogenase NT-Pro-B Natriuret Pep Total Protein 3.7 L Albumin 1.9 L Arterial Blood Glucose Arterial Blood Ionized Calcium Urine WBC (Auto) Phenytoin Crossmatch 10/03/20 10/03/20 10/03/20 11:20 11:46 11:50 WBC 28.7 H RBC 2.67 L Hgb 8.0 L Hct 23.7 L MCV MCH MCHC RDW 16.6 H Plt Count 76 L Lymph % (Auto) Foster % (Auto) Lymph # (Auto) Foster # (Auto) Seg Neutrophils % Seg Neuts % (Manual) Lymphocytes % (Manual) Monocytes % (Manual) Nucleated RBC % Seg Neutrophils # Seg Neutrophils # Man Lymphocytes # (Manual) Monocytes # (Manual) PT INR APTT Fibrinogen D-Dimer ABG pH POC ABG pCO2 POC ABG pO2 ABG pO2 ABG HCO3 ABG Base Excess ABG Hemoglobin ABG Oxyhemoglobin ABG Sodium ABG Potassium ABG Chloride ABG Glucose VBG pH Oxyhemoglobin Carboxyhemoglobin Sodium Potassium Chloride Carbon Dioxide BUN Creatinine Glucose POC Glucose 125 H Lactic Acid 8.00 H* Calcium Ionized Calcium Magnesium AST ALT Alkaline Phosphatase Lactate Dehydrogenase NT-Pro-B Natriuret Pep Total Protein Albumin Arterial Blood Glucose Arterial Blood Ionized Calcium Urine WBC (Auto) Phenytoin Crossmatch 10/03/20 10/04/20 10/04/20 11:50 00:40 00:40 WBC RBC Hgb 6.8 L Hct 19.4 L* MCV MCH MCHC RDW Plt Count 49 L Lymph % (Auto) Foster % (Auto) Lymph # (Auto) Foster # (Auto) Seg Neutrophils % Seg Neuts % (Manual) Lymphocytes % (Manual) Monocytes % (Manual) Nucleated RBC % Seg Neutrophils # Seg Neutrophils # Man Lymphocytes # (Manual) Monocytes # (Manual) PT INR APTT Fibrinogen D-Dimer ABG pH 7.244 L POC ABG pCO2 POC ABG pO2 ABG pO2 ABG HCO3 ABG Base Excess -4.5 L ABG Hemoglobin 7.3 L ABG Oxyhemoglobin ABG Sodium ABG Potassium ABG Chloride ABG Glucose VBG pH Oxyhemoglobin Carboxyhemoglobin Sodium Potassium Chloride Carbon Dioxide BUN Creatinine Glucose POC Glucose Lactic Acid Calcium Ionized Calcium Magnesium AST ALT Alkaline Phosphatase Lactate Dehydrogenase NT-Pro-B Natriuret Pep Total Protein Albumin Arterial Blood Glucose Arterial Blood Ionized Calcium Urine WBC (Auto) Phenytoin Crossmatch 10/04/20 10/04/20 10/04/20 03:53 10:00 10:00 WBC 14.6 H RBC 2.57 L Hgb 7.6 L Hct 22.5 L MCV MCH MCHC RDW 15.8 H Plt Count 38 L Lymph % (Auto) 7.7 L Foster % (Auto) Lymph # (Auto) 1.1 L Foster # (Auto) 0.9 H Seg Neutrophils % 85.6 H Seg Neuts % (Manual) Lymphocytes % (Manual) Monocytes % (Manual) Nucleated RBC % Seg Neutrophils # 12.5 H Seg Neutrophils # Man Lymphocytes # (Manual) Monocytes # (Manual) PT INR APTT Fibrinogen D-Dimer ABG pH POC ABG pCO2 POC ABG pO2 110.6 H ABG pO2 ABG HCO3 ABG Base Excess ABG Hemoglobin 6.7 L ABG Oxyhemoglobin ABG Sodium 132.0 L ABG Potassium ABG Chloride ABG Glucose 111 H VBG pH Oxyhemoglobin Carboxyhemoglobin Sodium 134 L D Potassium Chloride 97.6 L Carbon Dioxide BUN Creatinine 1.7 H Glucose POC Glucose Lactic Acid Calcium 6.3 L Ionized Calcium Magnesium AST 203 H ALT 81 H Alkaline Phosphatase Lactate Dehydrogenase NT-Pro-B Natriuret Pep Total Protein 3.9 L Albumin 2.3 L Arterial Blood Glucose 111 H Arterial Blood Ionized Calcium 3.5 L Urine WBC (Auto) Phenytoin Crossmatch 10/04/20 10/04/20 10/04/20 10:00 10:00 10:14 WBC RBC Hgb Hct MCV MCH MCHC RDW Plt Count Lymph % (Auto) Foster % (Auto) Lymph # (Auto) Foster # (Auto) Seg Neutrophils % Seg Neuts % (Manual) Lymphocytes % (Manual) Monocytes % (Manual) Nucleated RBC % Seg Neutrophils # Seg Neutrophils # Man Lymphocytes # (Manual) Monocytes # (Manual) PT INR APTT Fibrinogen D-Dimer > 17251 H ABG pH POC ABG pCO2 POC ABG pO2 ABG pO2 ABG HCO3 ABG Base Excess ABG Hemoglobin ABG Oxyhemoglobin ABG Sodium ABG Potassium ABG Chloride ABG Glucose VBG pH Oxyhemoglobin Carboxyhemoglobin Sodium Potassium Chloride Carbon Dioxide BUN Creatinine Glucose POC Glucose Lactic Acid 3.90 H* Calcium Ionized Calcium Magnesium AST ALT Alkaline Phosphatase Lactate Dehydrogenase NT-Pro-B Natriuret Pep 2788 H Total Protein Albumin Arterial Blood Glucose Arterial Blood Ionized Calcium Urine WBC (Auto) Phenytoin Crossmatch 10/04/20 10/04/20 10/04/20 14:00 14:00 18:00 WBC 15.7 H RBC 3.17 L Hgb 9.3 L 9.6 L Hct 27.2 L 28.0 L MCV MCH MCHC RDW 16.9 H Plt Count 41 L Lymph % (Auto) 8.6 L Foster % (Auto) Lymph # (Auto) Foster # (Auto) 0.9 H Seg Neutrophils % 85.4 H Seg Neuts % (Manual) Lymphocytes % (Manual) Monocytes % (Manual) Nucleated RBC % Seg Neutrophils # 13.4 H Seg Neutrophils # Man Lymphocytes # (Manual) Monocytes # (Manual) PT INR APTT Fibrinogen D-Dimer ABG pH POC ABG pCO2 POC ABG pO2 ABG pO2 ABG HCO3 ABG Base Excess ABG Hemoglobin ABG Oxyhemoglobin ABG Sodium ABG Potassium ABG Chloride ABG Glucose VBG pH Oxyhemoglobin Carboxyhemoglobin Sodium 133 L Potassium Chloride 96.4 L Carbon Dioxide BUN 18 H Creatinine 1.7 H Glucose POC Glucose Lactic Acid Calcium 6.3 L Ionized Calcium Magnesium AST ALT Alkaline Phosphatase Lactate Dehydrogenase NT-Pro-B Natriuret Pep Total Protein Albumin Arterial Blood Glucose Arterial Blood Ionized Calcium Urine WBC (Auto) Phenytoin Crossmatch 10/04/20 10/04/20 10/05/20 18:00 22:00 05:00 WBC 17.6 H RBC 3.34 L Hgb 9.9 L Hct 29.4 L MCV MCH MCHC RDW 17.1 H Plt Count 56 L Lymph % (Auto) 8.5 L Foster % (Auto) Lymph # (Auto) Foster # (Auto) 1.0 H Seg Neutrophils % 85.1 H Seg Neuts % (Manual) Lymphocytes % (Manual) Monocytes % (Manual) Nucleated RBC % Seg Neutrophils # 15.0 H Seg Neutrophils # Man Lymphocytes # (Manual) Monocytes # (Manual) PT INR APTT Fibrinogen D-Dimer ABG pH POC ABG pCO2 POC ABG pO2 ABG pO2 ABG HCO3 ABG Base Excess ABG Hemoglobin ABG Oxyhemoglobin ABG Sodium ABG Potassium ABG Chloride ABG Glucose VBG pH Oxyhemoglobin Carboxyhemoglobin Sodium 136 L Potassium Chloride Carbon Dioxide BUN 18 H Creatinine 1.7 H Glucose POC Glucose Lactic Acid 2.30 H* Calcium 6.6 L Ionized Calcium Magnesium AST ALT Alkaline Phosphatase Lactate Dehydrogenase NT-Pro-B Natriuret Pep Total Protein Albumin Arterial Blood Glucose Arterial Blood Ionized Calcium Urine WBC (Auto) Phenytoin Crossmatch 10/05/20 10/05/20 10/05/20 05:00 05:00 05:03 WBC RBC Hgb Hct MCV MCH MCHC RDW Plt Count Lymph % (Auto) Foster % (Auto) Lymph # (Auto) Foster # (Auto) Seg Neutrophils % Seg Neuts % (Manual) Lymphocytes % (Manual) Monocytes % (Manual) Nucleated RBC % Seg Neutrophils # Seg Neutrophils # Man Lymphocytes # (Manual) Monocytes # (Manual) PT INR APTT Fibrinogen D-Dimer ABG pH 7.458 H POC ABG pCO2 POC ABG pO2 ABG pO2 74.3 L ABG HCO3 27.5 H ABG Base Excess 3.4 H ABG Hemoglobin 10.0 L ABG Oxyhemoglobin ABG Sodium ABG Potassium ABG Chloride ABG Glucose VBG pH Oxyhemoglobin 94.9 L Carboxyhemoglobin Sodium Potassium Chloride Carbon Dioxide BUN 19 H Creatinine 1.8 H Glucose POC Glucose Lactic Acid Calcium 6.8 L Ionized Calcium 3.9 L Magnesium AST 225 H ALT 85 H Alkaline Phosphatase Lactate Dehydrogenase NT-Pro-B Natriuret Pep Total Protein 4.5 L Albumin 2.7 L Arterial Blood Glucose Arterial Blood Ionized Calcium Urine WBC (Auto) Phenytoin Crossmatch 10/05/20 10/05/20 10/05/20 10:10 15:00 19:40 WBC RBC Hgb Hct MCV MCH MCHC RDW Plt Count Lymph % (Auto) Foster % (Auto) Lymph # (Auto) Foster # (Auto) Seg Neutrophils % Seg Neuts % (Manual) Lymphocytes % (Manual) Monocytes % (Manual) Nucleated RBC % Seg Neutrophils # Seg Neutrophils # Man Lymphocytes # (Manual) Monocytes # (Manual) PT INR APTT Fibrinogen D-Dimer ABG pH POC ABG pCO2 POC ABG pO2 ABG pO2 ABG HCO3 ABG Base Excess ABG Hemoglobin ABG Oxyhemoglobin ABG Sodium ABG Potassium ABG Chloride ABG Glucose VBG pH Oxyhemoglobin Carboxyhemoglobin Sodium Potassium 3.5 L Chloride Carbon Dioxide 31 H 32 H BUN 19 H 19 H Creatinine 1.8 H 1.8 H Glucose POC Glucose Lactic Acid Calcium 7.0 L 7.2 L Ionized Calcium Magnesium 2.90 H AST ALT Alkaline Phosphatase Lactate Dehydrogenase NT-Pro-B Natriuret Pep Total Protein Albumin Arterial Blood Glucose Arterial Blood Ionized Calcium Urine WBC (Auto) Phenytoin Crossmatch 10/06/20 10/06/20 10/06/20 01:05 03:12 04:00 WBC 17.1 H RBC 3.47 L Hgb Hct MCV MCH MCHC RDW 17.4 H Plt Count 82 L Lymph % (Auto) 8.3 L Foster % (Auto) Lymph # (Auto) Foster # (Auto) 1.1 H Seg Neutrophils % 83.8 H Seg Neuts % (Manual) Lymphocytes % (Manual) Monocytes % (Manual) Nucleated RBC % Seg Neutrophils # 14.3 H Seg Neutrophils # Man Lymphocytes # (Manual) Monocytes # (Manual) PT INR APTT Fibrinogen D-Dimer ABG pH 7.474 H POC ABG pCO2 POC ABG pO2 129.5 H ABG pO2 ABG HCO3 ABG Base Excess ABG Hemoglobin 11.4 L ABG Oxyhemoglobin ABG Sodium 131.8 L ABG Potassium ABG Chloride ABG Glucose 103 H VBG pH Oxyhemoglobin Carboxyhemoglobin 0.3 L Sodium Potassium Chloride Carbon Dioxide BUN Creatinine Glucose POC Glucose Lactic Acid Calcium Ionized Calcium Magnesium 3.70 H AST ALT Alkaline Phosphatase Lactate Dehydrogenase NT-Pro-B Natriuret Pep Total Protein Albumin Arterial Blood Glucose 103 H Arterial Blood Ionized Calcium 4.2 L Urine WBC (Auto) Phenytoin Crossmatch 10/06/20 10/06/20 10/06/20 04:00 05:31 08:12 WBC RBC Hgb Hct MCV MCH MCHC RDW Plt Count Lymph % (Auto) [place] % (Auto) Lymph # (Auto) Foster # (Auto) Seg Neutrophils % Seg Neuts % (Manual) Lymphocytes % (Manual) Monocytes % (Manual) Nucleated RBC % Seg Neutrophils # Seg Neutrophils # Man Lymphocytes # (Manual) Monocytes # (Manual) PT INR APTT Fibrinogen D-Dimer ABG pH POC ABG pCO2 POC ABG pO2 ABG pO2 ABG HCO3 ABG Base Excess ABG Hemoglobin ABG Oxyhemoglobin ABG Sodium ABG Potassium ABG Chloride ABG Glucose VBG pH Oxyhemoglobin Carboxyhemoglobin Sodium Potassium 3.5 L Chloride Carbon Dioxide BUN 19 H Creatinine 1.8 H Glucose 102 H POC Glucose 116 H Lactic Acid Calcium 7.2 L Ionized Calcium Magnesium 5.40 H AST 307 H ALT 137 H Alkaline Phosphatase Lactate Dehydrogenase NT-Pro-B Natriuret Pep Total Protein 4.5 L Albumin 2.6 L Arterial Blood Glucose Arterial Blood Ionized Calcium Urine WBC (Auto) Phenytoin Crossmatch 10/06/20 10/06/20 10/06/20 11:00 11:50 20:13 WBC RBC Hgb Hct MCV MCH MCHC RDW Plt Count Lymph % (Auto) [place] % (Auto) Lymph # (Auto) Foster # (Auto) Seg Neutrophils % Seg Neuts % (Manual) Lymphocytes % (Manual) Monocytes % (Manual) Nucleated RBC % Seg Neutrophils # Seg Neutrophils # Man Lymphocytes # (Manual) Monocytes # (Manual) PT INR APTT Fibrinogen D-Dimer ABG pH POC ABG pCO2 POC ABG pO2 ABG pO2 ABG HCO3 ABG Base Excess ABG Hemoglobin ABG Oxyhemoglobin ABG Sodium ABG Potassium ABG Chloride ABG Glucose VBG pH Oxyhemoglobin Carboxyhemoglobin Sodium Potassium Chloride Carbon Dioxide BUN Creatinine Glucose POC Glucose 106 H Lactic Acid Calcium Ionized Calcium Magnesium 6.50 H 6.20 H AST ALT Alkaline Phosphatase Lactate Dehydrogenase NT-Pro-B Natriuret Pep Total Protein Albumin Arterial Blood Glucose Arterial Blood Ionized Calcium Urine WBC (Auto) Phenytoin Crossmatch 10/06/20 10/06/20 10/06/20 20:17 22:29 23:57 WBC RBC Hgb Hct MCV MCH MCHC RDW Plt Count Lymph % (Auto) [place] % (Auto) Lymph # (Auto) Foster # (Auto) Seg Neutrophils % Seg Neuts % (Manual) Lymphocytes % (Manual) Monocytes % (Manual) Nucleated RBC % Seg Neutrophils # Seg Neutrophils # Man Lymphocytes # (Manual) Monocytes # (Manual) PT INR APTT Fibrinogen D-Dimer ABG pH POC ABG pCO2 POC ABG pO2 ABG pO2 ABG HCO3 ABG Base Excess ABG Hemoglobin ABG Oxyhemoglobin ABG Sodium ABG Potassium ABG Chloride ABG Glucose VBG pH Oxyhemoglobin Carboxyhemoglobin Sodium Potassium Chloride Carbon Dioxide BUN Creatinine Glucose POC Glucose 112 H 126 H 133 H Lactic Acid Calcium Ionized Calcium Magnesium AST ALT Alkaline Phosphatase Lactate Dehydrogenase NT-Pro-B Natriuret Pep Total Protein Albumin Arterial Blood Glucose Arterial Blood Ionized Calcium Urine WBC (Auto) Phenytoin Crossmatch 10/07/20 10/07/20 10/07/20 00:35 02:22 03:16 WBC RBC Hgb Hct MCV MCH MCHC RDW Plt Count Lymph % (Auto) [place] % (Auto) Lymph # (Auto) [place] # (Auto) Seg Neutrophils % Seg Neuts % (Manual) Lymphocytes % (Manual) Monocytes % (Manual) Nucleated RBC % Seg Neutrophils # Seg Neutrophils # Man Lymphocytes # (Manual) Monocytes # (Manual) PT INR APTT Fibrinogen D-Dimer ABG pH POC ABG pCO2 POC ABG pO2 ABG pO2 ABG HCO3 ABG Base Excess ABG Hemoglobin 11.6 L ABG Oxyhemoglobin ABG Sodium ABG Potassium ABG Chloride ABG Glucose 156 H VBG pH Oxyhemoglobin Carboxyhemoglobin 0.3 L Sodium Potassium Chloride Carbon Dioxide BUN Creatinine Glucose POC Glucose 124 H Lactic Acid Calcium Ionized Calcium Magnesium 5.90 H AST ALT Alkaline Phosphatase Lactate Dehydrogenase NT-Pro-B Natriuret Pep Total Protein Albumin Arterial Blood Glucose 156 H Arterial Blood Ionized Calcium 4.2 L Urine WBC (Auto) Phenytoin Crossmatch 10/07/20 10/07/20 10/07/20 04:06 05:45 07:05 WBC 19.2 H RBC 3.57 L Hgb Hct MCV MCH MCHC 35 H RDW 17.1 H Plt Count 129 L Lymph % (Auto) Foster % (Auto) Lymph # (Auto) Foster # (Auto) Seg Neutrophils % Seg Neuts % (Manual) 94.0 H Lymphocytes % (Manual) 6.0 L Monocytes % (Manual) Nucleated RBC % Seg Neutrophils # Seg Neutrophils # Man 18.0 H Lymphocytes # (Manual) Monocytes # (Manual) PT INR APTT Fibrinogen D-Dimer ABG pH POC ABG pCO2 POC ABG pO2 ABG pO2 ABG HCO3 ABG Base Excess ABG Hemoglobin ABG Oxyhemoglobin ABG Sodium ABG Potassium ABG Chloride ABG Glucose VBG pH Oxyhemoglobin Carboxyhemoglobin Sodium Potassium Chloride Carbon Dioxide BUN Creatinine Glucose POC Glucose 135 H 149 H Lactic Acid Calcium Ionized Calcium Magnesium AST ALT Alkaline Phosphatase Lactate Dehydrogenase NT-Pro-B Natriuret Pep Total Protein Albumin Arterial Blood Glucose Arterial Blood Ionized Calcium Urine WBC (Auto) Phenytoin Crossmatch 10/07/20 10/07/20 10/07/20 07:05 07:05 12:21 WBC RBC Hgb Hct MCV MCH MCHC RDW Plt Count Lymph % (Auto) Foster % (Auto) Lymph # (Auto) Foster # (Auto) Seg Neutrophils % Seg Neuts % (Manual) Lymphocytes % (Manual) Monocytes % (Manual) Nucleated RBC % Seg Neutrophils # Seg Neutrophils # Man Lymphocytes # (Manual) Monocytes # (Manual) PT INR APTT Fibrinogen D-Dimer ABG pH POC ABG pCO2 POC ABG pO2 ABG pO2 ABG HCO3 ABG Base Excess ABG Hemoglobin ABG Oxyhemoglobin ABG Sodium ABG Potassium ABG Chloride ABG Glucose VBG pH Oxyhemoglobin Carboxyhemoglobin Sodium Potassium Chloride Carbon Dioxide BUN 21 H Creatinine 1.7 H Glucose 171 H POC Glucose 124 H Lactic Acid Calcium 7.4 L Ionized Calcium Magnesium 6.10 H AST 245 H ALT 147 H Alkaline Phosphatase Lactate Dehydrogenase NT-Pro-B Natriuret Pep Total Protein 5.3 L Albumin 2.8 L Arterial Blood Glucose Arterial Blood Ionized Calcium Urine WBC (Auto) Phenytoin Crossmatch 10/07/20 10/07/20 10/07/20 19:52 21:00 21:50 WBC RBC Hgb Hct MCV MCH MCHC RDW Plt Count Lymph % (Auto) Foster % (Auto) Lymph # (Auto) Foster # (Auto) Seg Neutrophils % Seg Neuts % (Manual) Lymphocytes % (Manual) Monocytes % (Manual) Nucleated RBC % Seg Neutrophils # Seg Neutrophils # Man Lymphocytes # (Manual) Monocytes # (Manual) PT INR APTT Fibrinogen D-Dimer ABG pH POC ABG pCO2 POC ABG pO2 ABG pO2 ABG HCO3 ABG Base Excess ABG Hemoglobin ABG Oxyhemoglobin ABG Sodium ABG Potassium ABG Chloride ABG Glucose VBG pH Oxyhemoglobin Carboxyhemoglobin Sodium Potassium Chloride Carbon Dioxide BUN Creatinine Glucose POC Glucose 193 H 138 H Lactic Acid Calcium Ionized Calcium 4.4 L Magnesium AST ALT Alkaline Phosphatase Lactate Dehydrogenase NT-Pro-B Natriuret Pep Total Protein Albumin Arterial Blood Glucose Arterial Blood Ionized Calcium Urine WBC (Auto) Phenytoin Crossmatch 10/07/20 10/08/20 10/08/20 23:41 04:20 05:30 WBC RBC Hgb Hct MCV MCH MCHC RDW Plt Count Lymph % (Auto) Foster % (Auto) Lymph # (Auto) Foster # (Auto) Seg Neutrophils % Seg Neuts % (Manual) Lymphocytes % (Manual) Monocytes % (Manual) Nucleated RBC % Seg Neutrophils # Seg Neutrophils # Man Lymphocytes # (Manual) Monocytes # (Manual) PT INR APTT Fibrinogen D-Dimer ABG pH 7.467 H POC ABG pCO2 POC ABG pO2 189.8 H ABG pO2 ABG HCO3 ABG Base Excess ABG Hemoglobin 10.8 L ABG Oxyhemoglobin ABG Sodium ABG Potassium ABG Chloride ABG Glucose 133 H VBG pH Oxyhemoglobin Carboxyhemoglobin Sodium Potassium Chloride Carbon Dioxide BUN Creatinine Glucose POC Glucose 118 H 114 H Lactic Acid Calcium Ionized Calcium Magnesium AST ALT Alkaline Phosphatase Lactate Dehydrogenase NT-Pro-B Natriuret Pep Total Protein Albumin Arterial Blood Glucose 133 H Arterial Blood Ionized Calcium 4.2 L Urine WBC (Auto) Phenytoin Crossmatch 10/08/20 10/08/20 10/08/20 05:43 06:42 06:42 WBC 23.6 H RBC 3.54 L Hgb Hct MCV MCH MCHC RDW 17.8 H Plt Count Lymph % (Auto) Foster % (Auto) Lymph # (Auto) Foster # (Auto) Seg Neutrophils % Seg Neuts % (Manual) 93.0 H Lymphocytes % (Manual) 3.0 L Monocytes % (Manual) Nucleated RBC % 1.0 H Seg Neutrophils # Seg Neutrophils # Man 21.9 H Lymphocytes # (Manual) 0.7 L Monocytes # (Manual) 0.9 H PT INR APTT Fibrinogen D-Dimer ABG pH POC ABG pCO2 POC ABG pO2 ABG pO2 ABG HCO3 ABG Base Excess ABG Hemoglobin ABG Oxyhemoglobin ABG Sodium ABG Potassium ABG Chloride ABG Glucose VBG pH Oxyhemoglobin Carboxyhemoglobin Sodium Potassium Chloride Carbon Dioxide BUN 28 H Creatinine 1.6 H Glucose 141 H POC Glucose 126 H Lactic Acid Calcium 7.6 L Ionized Calcium Magnesium AST 162 H ALT 103 H Alkaline Phosphatase Lactate Dehydrogenase NT-Pro-B Natriuret Pep Total Protein 5.4 L Albumin 2.7 L Arterial Blood Glucose Arterial Blood Ionized Calcium Urine WBC (Auto) Phenytoin Crossmatch 10/08/20 10/08/20 10/08/20 11:20 16:05 20:14 WBC RBC Hgb Hct MCV MCH MCHC RDW Plt Count Lymph % (Auto) Foster % (Auto) Lymph # (Auto) Foster # (Auto) Seg Neutrophils % Seg Neuts % (Manual) Lymphocytes % (Manual) Monocytes % (Manual) Nucleated RBC % Seg Neutrophils # Seg Neutrophils # Man Lymphocytes # (Manual) Monocytes # (Manual) PT INR APTT Fibrinogen D-Dimer ABG pH POC ABG pCO2 POC ABG pO2 ABG pO2 ABG HCO3 ABG Base Excess ABG Hemoglobin ABG Oxyhemoglobin ABG Sodium ABG Potassium ABG Chloride ABG Glucose VBG pH Oxyhemoglobin Carboxyhemoglobin Sodium Potassium Chloride Carbon Dioxide BUN Creatinine Glucose POC Glucose 127 H 172 H 147 H Lactic Acid Calcium Ionized Calcium Magnesium AST ALT Alkaline Phosphatase Lactate Dehydrogenase NT-Pro-B Natriuret Pep Total Protein Albumin Arterial Blood Glucose Arterial Blood Ionized Calcium Urine WBC (Auto) Phenytoin Crossmatch 10/08/20 10/08/20 10/09/20 21:27 23:24 02:10 WBC RBC Hgb Hct MCV MCH MCHC RDW Plt Count Lymph % (Auto) [place] % (Auto) Lymph # (Auto) [place] # (Auto) Seg Neutrophils % Seg Neuts % (Manual) Lymphocytes % (Manual) Monocytes % (Manual) Nucleated RBC % Seg Neutrophils # Seg Neutrophils # Man Lymphocytes # (Manual) Monocytes # (Manual) PT INR APTT Fibrinogen D-Dimer ABG pH POC ABG pCO2 POC ABG pO2 ABG pO2 ABG HCO3 ABG Base Excess ABG Hemoglobin ABG Oxyhemoglobin ABG Sodium ABG Potassium ABG Chloride ABG Glucose VBG pH Oxyhemoglobin Carboxyhemoglobin Sodium Potassium Chloride Carbon Dioxide BUN Creatinine Glucose POC Glucose 140 H 135 H 111 H Lactic Acid Calcium Ionized Calcium Magnesium AST ALT Alkaline Phosphatase Lactate Dehydrogenase NT-Pro-B Natriuret Pep Total Protein Albumin Arterial Blood Glucose Arterial Blood Ionized Calcium Urine WBC (Auto) Phenytoin Crossmatch 10/09/20 10/09/20 10/09/20 03:44 04:39 05:46 WBC 19.7 H RBC 3.51 L Hgb Hct MCV MCH MCHC RDW 17.7 H Plt Count Lymph % (Auto) Foster % (Auto) Lymph # (Auto) Foster # (Auto) Seg Neutrophils % Seg Neuts % (Manual) 86.0 H Lymphocytes % (Manual) 4.0 L Monocytes % (Manual) 9.0 H Nucleated RBC % Seg Neutrophils # Seg Neutrophils # Man 16.9 H Lymphocytes # (Manual) 0.8 L Monocytes # (Manual) 1.8 H PT INR APTT Fibrinogen D-Dimer ABG pH 7.513 H POC ABG pCO2 POC ABG pO2 33.6 L ABG pO2 ABG HCO3 ABG Base Excess ABG Hemoglobin 11.1 L ABG Oxyhemoglobin 70.2 L ABG Sodium ABG Potassium 3.2 L ABG Chloride 108.0 H ABG Glucose 108 H VBG pH Oxyhemoglobin Carboxyhemoglobin Sodium Potassium Chloride Carbon Dioxide BUN Creatinine Glucose POC Glucose 109 H Lactic Acid Calcium Ionized Calcium Magnesium AST ALT Alkaline Phosphatase Lactate Dehydrogenase NT-Pro-B Natriuret Pep Total Protein Albumin Arterial Blood Glucose 108 H Arterial Blood Ionized Calcium 4.3 L Urine WBC (Auto) Phenytoin Crossmatch 10/09/20 10/10/20 10/10/20 05:46 04:00 04:00 WBC 18.4 H RBC Hgb Hct MCV MCH MCHC RDW 17.5 H Plt Count Lymph % (Auto) 9.8 L [place] % (Auto) 8.8 H Lymph # (Auto) Foster # (Auto) 1.6 H Seg Neutrophils % 80.0 H Seg Neuts % (Manual) Lymphocytes % (Manual) Monocytes % (Manual) Nucleated RBC % Seg Neutrophils # 14.7 H Seg Neutrophils # Man Lymphocytes # (Manual) Monocytes # (Manual) PT INR APTT Fibrinogen D-Dimer ABG pH POC ABG pCO2 POC ABG pO2 ABG pO2 ABG HCO3 ABG Base Excess ABG Hemoglobin ABG Oxyhemoglobin ABG Sodium ABG Potassium ABG Chloride ABG Glucose VBG pH Oxyhemoglobin Carboxyhemoglobin Sodium 146 H Potassium 3.2 L 2.9 L* Chloride 108.9 H 112.6 H Carbon Dioxide BUN 34 H 28 H Creatinine 1.4 H 1.3 H Glucose 109 H 101 H POC Glucose Lactic Acid Calcium 7.6 L 7.8 L Ionized Calcium Magnesium AST 137 H 122 H ALT 99 H 81 H Alkaline Phosphatase Lactate Dehydrogenase NT-Pro-B Natriuret Pep Total Protein 5.1 L 5.2 L Albumin 2.6 L 2.7 L Arterial Blood Glucose Arterial Blood Ionized Calcium Urine WBC (Auto) Phenytoin Crossmatch 10/10/20 10/10/20 10/11/20 04:42 09:50 00:44 WBC RBC Hgb Hct MCV MCH MCHC RDW Plt Count Lymph % (Auto) [place] % (Auto) Lymph # (Auto) [place] # (Auto) Seg Neutrophils % Seg Neuts % (Manual) Lymphocytes % (Manual) Monocytes % (Manual) Nucleated RBC % Seg Neutrophils # Seg Neutrophils # Man Lymphocytes # (Manual) Monocytes # (Manual) PT INR APTT Fibrinogen D-Dimer ABG pH 7.534 H POC ABG pCO2 POC ABG pO2 ABG pO2 95.2 H ABG HCO3 ABG Base Excess ABG Hemoglobin 11.3 L ABG Oxyhemoglobin ABG Sodium ABG Potassium ABG Chloride ABG Glucose VBG pH Oxyhemoglobin Carboxyhemoglobin Sodium Potassium Chloride Carbon Dioxide BUN Creatinine Glucose POC Glucose 109 H 106 H Lactic Acid Calcium Ionized Calcium Magnesium AST ALT Alkaline Phosphatase Lactate Dehydrogenase NT-Pro-B Natriuret Pep Total Protein Albumin Arterial Blood Glucose Arterial Blood Ionized Calcium Urine WBC (Auto) Phenytoin Crossmatch 10/11/20 10/11/20 10/11/20 04:00 04:00 06:08 WBC 27.0 H RBC Hgb Hct MCV MCH MCHC RDW 17.7 H Plt Count Lymph % (Auto) 6.3 L Foster % (Auto) Lymph # (Auto) Foster # (Auto) 1.5 H Seg Neutrophils % 87.1 H Seg Neuts % (Manual) Lymphocytes % (Manual) Monocytes % (Manual) Nucleated RBC % Seg Neutrophils # 23.5 H Seg Neutrophils # Man Lymphocytes # (Manual) Monocytes # (Manual) PT INR APTT Fibrinogen D-Dimer ABG pH POC ABG pCO2 POC ABG pO2 ABG pO2 ABG HCO3 ABG Base Excess ABG Hemoglobin ABG Oxyhemoglobin ABG Sodium ABG Potassium ABG Chloride ABG Glucose VBG pH Oxyhemoglobin Carboxyhemoglobin Sodium Potassium 3.2 L Chloride 110.4 H Carbon Dioxide 19 L BUN 22 H Creatinine Glucose 116 H POC Glucose 107 H Lactic Acid Calcium 7.7 L Ionized Calcium Magnesium 1.60 L AST ALT Alkaline Phosphatase Lactate Dehydrogenase NT-Pro-B Natriuret Pep Total Protein Albumin Arterial Blood Glucose Arterial Blood Ionized Calcium Urine WBC (Auto) Phenytoin Crossmatch 10/11/20 10/11/20 10/12/20 11:41 13:26 03:52 WBC RBC Hgb Hct MCV MCH MCHC RDW Plt Count Lymph % (Auto) [place] % (Auto) Lymph # (Auto) [place] # (Auto) Seg Neutrophils % Seg Neuts % (Manual) Lymphocytes % (Manual) Monocytes % (Manual) Nucleated RBC % Seg Neutrophils # Seg Neutrophils # Man Lymphocytes # (Manual) Monocytes # (Manual) PT INR APTT Fibrinogen D-Dimer ABG pH POC ABG pCO2 POC ABG pO2 ABG pO2 ABG HCO3 ABG Base Excess ABG Hemoglobin ABG Oxyhemoglobin ABG Sodium ABG Potassium ABG Chloride ABG Glucose VBG pH Oxyhemoglobin Carboxyhemoglobin Sodium Potassium Chloride Carbon Dioxide BUN Creatinine Glucose POC Glucose 116 H 114 H Lactic Acid Calcium Ionized Calcium Magnesium AST ALT Alkaline Phosphatase Lactate Dehydrogenase NT-Pro-B Natriuret Pep Total Protein Albumin Arterial Blood Glucose Arterial Blood Ionized Calcium Urine WBC (Auto) 24.0 H Phenytoin Crossmatch 10/12/20 10/12/20 10/12/20 04:24 14:47 21:33 WBC RBC Hgb Hct MCV MCH MCHC RDW Plt Count Lymph % (Auto) [place] % (Auto) Lymph # (Auto) [place] # (Auto) Seg Neutrophils % Seg Neuts % (Manual) Lymphocytes % (Manual) Monocytes % (Manual) Nucleated RBC % Seg Neutrophils # Seg Neutrophils # Man Lymphocytes # (Manual) Monocytes # (Manual) PT INR APTT Fibrinogen D-Dimer ABG pH POC ABG pCO2 POC ABG pO2 ABG pO2 ABG HCO3 ABG Base Excess ABG Hemoglobin ABG Oxyhemoglobin ABG Sodium ABG Potassium ABG Chloride ABG Glucose VBG pH Oxyhemoglobin Carboxyhemoglobin Sodium Potassium Chloride 109.9 H Carbon Dioxide 13 L BUN 18 H Creatinine Glucose 119 H POC Glucose 107 H Lactic Acid Calcium 7.6 L Ionized Calcium Magnesium 1.60 L AST ALT Alkaline Phosphatase Lactate Dehydrogenase NT-Pro-B Natriuret Pep Total Protein Albumin Arterial Blood Glucose Arterial Blood Ionized Calcium Urine WBC (Auto) Phenytoin Crossmatch 10/12/20 10/12/20 10/13/20 Unknown Unknown 07:00 WBC 24.3 H RBC 3.38 L Hgb 9.8 L Hct MCV MCH MCHC RDW 18.7 H Plt Count Lymph % (Auto) [place] % (Auto) Lymph # (Auto) [place] # (Auto) Seg Neutrophils % Seg Neuts % (Manual) 93.5 H Lymphocytes % (Manual) 4.5 L Monocytes % (Manual) Nucleated RBC % Seg Neutrophils # Seg Neutrophils # Man 22.7 H Lymphocytes # (Manual) 1.1 L Monocytes # (Manual) PT INR APTT Fibrinogen D-Dimer ABG pH POC ABG pCO2 POC ABG pO2 ABG pO2 ABG HCO3 ABG Base Excess ABG Hemoglobin ABG Oxyhemoglobin ABG Sodium ABG Potassium ABG Chloride ABG Glucose VBG pH Oxyhemoglobin Carboxyhemoglobin Sodium 135 L D Potassium 3.1 L Chloride Carbon Dioxide 17 L BUN Creatinine Glucose 510 H* POC Glucose Lactic Acid Calcium 7.2 L Ionized Calcium Magnesium AST ALT Alkaline Phosphatase Lactate Dehydrogenase NT-Pro-B Natriuret Pep Total Protein Albumin Arterial Blood Glucose Arterial Blood Ionized Calcium Urine WBC (Auto) Phenytoin 5.7 L Crossmatch 10/13/20 10/13/20 10/13/20 07:00 07:00 07:18 WBC 23.6 H RBC 3.26 L Hgb 9.4 L Hct 28.7 L MCV MCH MCHC RDW 18.3 H Plt Count Lymph % (Auto) [place] % (Auto) Lymph # (Auto) [place] # (Auto) Seg Neutrophils % Seg Neuts % (Manual) Lymphocytes % (Manual) Monocytes % (Manual) Nucleated RBC % Seg Neutrophils # Seg Neutrophils # Man Lymphocytes # (Manual) Monocytes # (Manual) PT INR APTT Fibrinogen D-Dimer ABG pH 7.473 H POC ABG pCO2 20.7 L POC ABG pO2 137.9 H ABG pO2 ABG HCO3 ABG Base Excess ABG Hemoglobin 11.2 L ABG Oxyhemoglobin 98.3 H ABG Sodium 135.9 L ABG Potassium ABG Chloride 111.0 H ABG Glucose 109 H VBG pH Oxyhemoglobin Carboxyhemoglobin 0.3 L Sodium 135 L Potassium 3.5 L Chloride 109.1 H Carbon Dioxide 18 L BUN Creatinine Glucose POC Glucose Lactic Acid Calcium 7.3 L Ionized Calcium Magnesium 1.60 L AST ALT Alkaline Phosphatase Lactate Dehydrogenase NT-Pro-B Natriuret Pep Total Protein Albumin Arterial Blood Glucose 109 H Arterial Blood Ionized Calcium Urine WBC (Auto) Phenytoin Crossmatch 10/14/20 10/14/20 10/15/20 04:00 04:00 05:50 WBC 28.6 H 23.2 H RBC 3.61 L 3.43 L Hgb 9.9 L Hct 30.0 L MCV MCH MCHC RDW 18.3 H 18.2 H Plt Count Lymph % (Auto) Foster % (Auto) Lymph # (Auto) Foster # (Auto) Seg Neutrophils % Seg Neuts % (Manual) 88.0 H 90.0 H Lymphocytes % (Manual) 5.0 L 4.0 L Monocytes % (Manual) Nucleated RBC % Seg Neutrophils # Seg Neutrophils # Man 25.2 H 20.9 H Lymphocytes # (Manual) 0.9 L Monocytes # (Manual) 1.4 H 0.9 H PT INR APTT Fibrinogen D-Dimer ABG pH POC ABG pCO2 POC ABG pO2 ABG pO2 ABG HCO3 ABG Base Excess ABG Hemoglobin ABG Oxyhemoglobin ABG Sodium ABG Potassium ABG Chloride ABG Glucose VBG pH Oxyhemoglobin Carboxyhemoglobin Sodium Potassium Chloride 109.9 H Carbon Dioxide 17 L BUN Creatinine Glucose POC Glucose Lactic Acid Calcium Ionized Calcium Magnesium AST ALT Alkaline Phosphatase Lactate Dehydrogenase NT-Pro-B Natriuret Pep Total Protein Albumin Arterial Blood Glucose Arterial Blood Ionized Calcium Urine WBC (Auto) Phenytoin Crossmatch 10/15/20 10/16/20 10/17/20 05:50 11:57 04:57 WBC 15.2 H RBC 3.43 L Hgb Hct MCV MCH MCHC RDW 18.1 H Plt Count Lymph % (Auto) Foster % (Auto) Lymph # (Auto) Foster # (Auto) Seg Neutrophils % Seg Neuts % (Manual) Lymphocytes % (Manual) Monocytes % (Manual) Nucleated RBC % Seg Neutrophils # Seg Neutrophils # Man Lymphocytes # (Manual) Monocytes # (Manual) PT INR APTT Fibrinogen D-Dimer ABG pH POC ABG pCO2 POC ABG pO2 ABG pO2 ABG HCO3 ABG Base Excess ABG Hemoglobin ABG Oxyhemoglobin ABG Sodium ABG Potassium ABG Chloride ABG Glucose VBG pH Oxyhemoglobin Carboxyhemoglobin Sodium Potassium Chloride 110.3 H Carbon Dioxide 18 L BUN Creatinine Glucose 105 H POC Glucose 111 H Lactic Acid Calcium 8.3 L Ionized Calcium Magnesium AST ALT Alkaline Phosphatase Lactate Dehydrogenase NT-Pro-B Natriuret Pep Total Protein Albumin Arterial Blood Glucose Arterial Blood Ionized Calcium Urine WBC (Auto) Phenytoin Crossmatch 10/17/20 05:25 WBC RBC Hgb Hct MCV MCH MCHC RDW Plt Count Lymph % (Auto) Foster % (Auto) Lymph # (Auto) Foster # (Auto) Seg Neutrophils % Seg Neuts % (Manual) Lymphocytes % (Manual) Monocytes % (Manual) Nucleated RBC % Seg Neutrophils # Seg Neutrophils # Man Lymphocytes # (Manual) Monocytes # (Manual) PT INR APTT Fibrinogen D-Dimer ABG pH POC ABG pCO2 POC ABG pO2 ABG pO2 ABG HCO3 ABG Base Excess ABG Hemoglobin ABG Oxyhemoglobin ABG Sodium ABG Potassium ABG Chloride ABG Glucose VBG pH Oxyhemoglobin Carboxyhemoglobin Sodium Potassium Chloride Carbon Dioxide BUN Creatinine Glucose POC Glucose 107 H Lactic Acid Calcium Ionized Calcium Magnesium AST ALT Alkaline Phosphatase Lactate Dehydrogenase NT-Pro-B Natriuret Pep Total Protein Albumin Arterial Blood Glucose Arterial Blood Ionized Calcium Urine WBC (Auto) Phenytoin Crossmatch
[2020-10-17] MEDS: SODIUM BICARBONATE 650 MG TAB PO SCH ×3 (09:05→21:16)
[2020-10-17] MEDS: busPIRone 5 MG TAB PO SCH ×2 (09:05→21:18)
[2020-10-17] MEDS: hydrALAZINE 25 MG TAB PO SCH ×3 (09:05→22:47)
[2020-10-17] MEDS: FAMOTIDINE 20 MG TAB PO SCH ×2 (09:05→21:17)
[2020-10-17] MEDS: TOPIRAMATE TAB 25 MG TAB PO SCH ×2 (09:06→21:18)
[2020-10-17] MEDS: CEFEPIME/NS 2 GM/100 ML 2 GM/100 ML BAG IV SCH ×2 (09:07→21:19)
[2020-10-17] MEDS: busPIRone 10 MG TAB PO SCH ×2 (09:07→21:18)
[2020-10-17] MEDS: FUROSEMIDE 40 MG TAB PO SCH (09:15)
--- NOTE | 2020-10-17 11:27 | Progress Note ---
Assessment and Plan Assessment and plan: 30 year old -[place] female CHE 10/25/20 at 36w5d who presents with seizures in triage on 10/02/20. Pt was not able to provide history but per pt's , she presented to the hospital to return a 24 hour urine specimen for analysis. She then suddenly reported that she did not feel good. She was taken to labor and delivery and shortly after arrival, she began seizing. During this time, a code met was called because the patient became hypoxic. She was then noted to be without a pulse. Chest compressions were started immediately, and the patient was emergently taken to the operating room for delivery of the fetus. Off note, This patient has had care at [facility] with comanagement by [facility] since 11 wks complicated by ADHD, morbid obesity, generalized anxiety disorder, panic attacks, chronic narcotic use, fibromyalgia, GERD, Irritable Bowel Syndrome, Migraines, h/o endometrial ablation and ovarian vein embolization, genital herpes, insomnia, LGA fetus, nausea and vomiting, polyhydramnios, quad screen positive for Down's Syndrome, and previous x 3. She is GBS negative. 11:30: Pt brought to L&D triage for evaluation of possible labor. Pt accompanied by her spouse. Pt spouse poor historian; unable to obtain history- allergies at this time. Pt taken from registration to triage area via WC. Pt unresponsive, actively seizing with snorous respirations. health information director, Kassy, called and requesting assistance. 11:35: Multiple staff at bedside. Pt 02 sat 67% on nonrebreather, unable to read BP at this time. Yifan Theodore CRNA, at bedside for intubation and assistance with IV insertion. INT attempt by multiple RNs unsuccessful at this time. 11:42: Pt being bagged by KORIN, 02% 79%. No pulse palpated, compressions started at this time; bharati young called and Dr. Newberry preparing OR for emergent c/s. 11:44: Continued compressions on stretcher while transporting pt to OR 1. Pt being bagged with jaw thrust manuever in place by KORIN Stringer student. 11:45: Arrival to OR 1. Dr. Newberry and Dr. Portillo present for emergent c/s. Code team arrived for continued care. patient revived and c/s done Patient has been bleeding from C/s site followed by supracervical hysterectomy for severe bleeding Patient transfused multiple units of PRBC, Patient in DIC. Transferred to the ICU 10/03. Patient seen and examined at bedside this morning. Patient is nonresponsive and mechanically ventilated. On pressors. Labs reviewed-has leukocytosis, anemia, thrombocytopenia, ADOLPH and lactic acidosis. Started on IV antibiotics to cover possible sepsis secondary to DIC. Hematology oncology recommendations appreciated-needs additional cryoprecipitate and FFP. Monitor D-dimer, fibrinogen and frequent labs. Nephrology consulted for lactic acidosis and ADOLPH. 10/04. Remains mechanically ventilated. Kevin antibiotics. Labs shows improved acidosis - lactic acid 3.5. Hb drop noted. Getting transfused 2 units PRBCs. Platelet count is ~40k. Continue to monitor labs closely. Critical care team on board. 10/05; xray reviewed, concerning for multifocal infilrate, likely underlying Pneumonia, will add ID consult to assist with management of this critically ill patient, start tube feed, closely monitor renal system 10/06: Resumed care, remains on mechanical ventilation. No active bleeding, H&H stable. Continue to monitor CBC and BMP. Continue IV antibiotic for underlying pneumonia. Follow critical care and ID recommendation. 10/07: Remains on mechanical ventilation. No active bleeding, H&H stable. Critical care following, wean off ventilation as tolerated. 10/08: Patient had another cardiac arrest last night. Remains on mechanical ventilation, update family. Continue supportive care -poor prognosis 10/09: Called patient mother and discussed about patient care and management. Answered all question to best of my knowledge and family satisfaction. Patient remains on mechanical ventilation, cardiac arrest x2 so far. Critically sick, poor prognosis 10/10: remains on mechanical ventilation. h/h stable, no active bleeding. monito r CBC/BMP 10/11: WBC trended up with diarrhea, started on vancomycin po. remains on MV, off pressor, tolerating TF 10/12: remains on MV, off pressor, tolerating TF. called family for update but unable to reach, could not leave message as it was full. cont supportive care, wean off vent as tolerated. 10/13/2020; patient is on mechanical ventilation, tolerating tube feeding. Patient has labored breathing. Neuro was consulted and recommend MRI. Patient is on Precedex. Rectal tube in place. 10/14/2020; patient is on mechanical ventilation, Precedex. Patient had fever and blood culture ordered. Patient is on IV vancomycin per ID recommendation. Neuro consulted and recommend MRI. Continue to monitor. Prognosis is guarded. 10/15/2020; patient is on mechanical ventilation, Precedex. Patient had fever and blood culture ordered. Patient is on IV vancomycin per ID recommendation. Neuro consulted and recommend MRI. Continue to monitor. Prognosis is guarded. 2: Remains with C.DIFF and Bactermia, Poor prognosis. No purposful movement. MRI and EEG discussed with Intensvisit, Continue aggressive BP control. The high probability of a clinically significant, sudden or life threatening deterioration of the [MULTIPLE ORGAN] system(s) required my full and direct attention, intervention and personal management. The aggregate critical care time was [35] minutes. This time is in addition to time spent performing reported procedures but includes the following: [X] Data Review and interpretation [X] Patient assessment and monitoring of vital signs [X] Documentation [X] Medication orders and management History Interval history: Patient seen and examined, remains critical ill on the ventilator Hospitalist Physical - Physical exam Narrative exam: VITAL SIGNS: Reviewed. GENERAL: Intubated HEAD: No signs of head trauma. Opens her eyes but no purposeful movement EYES: Pupils are equal. MOUTH: OT in place NECK: No adenopathy, no JVD. CHEST: Rales posteriorly CARDIAC: normal S1 and S2, without murmurs, gallops, or rubs. ABDOMEN: Soft, non tender and non distended. surgical wound in tact, No rebound or guarding, and no masses palpated. Bowel Sounds normal. AVINASH drain intact with bloody fluid MUSCULOSKELETAL: No edema NEUROLOGIC EXAM: Intubated SKIN: No obvious lesions - Constitutional Vitals: Temp Pulse Resp BP Pulse Ox 98.5 F 95 H 25 H 127/81 96 10/17/20 08:00 10/17/20 11:15 10/17/20 11:15 10/17/20 11:15 10/17/20 11:15 General appearance: Present: obese, other (sedated) HEART Score - HEART Score Age: < 45 Risk factors: 1-2 risk factors - Critical Actions Critical Actions: >7 pts:50-65% risk of adverse cardiac event. Early invasive measures Results - Labs CBC & Chem 7: 10/17/20 04:57 10/15/20 05:50 Labs: Laboratory Last Values WBC 15.2 K/mm3 (4.5-11.0) H 10/17/20 04:57 RBC 3.43 M/mm3 (3.65-5.03) L 10/17/20 04:57 Hgb 10.1 gm/dl (10.1-14.3) 10/17/20 04:57 Hct 31.2 % (30.3-42.9) 10/17/20 04:57 MCV 91 fl (79-97) 10/17/20 04:57 MCH 29 pg (28-32) 10/17/20 04:57 MCHC 32 % (30-34) 10/17/20 04:57 RDW 18.1 % (13.2-15.2) H 10/17/20 04:57 Plt Count 366 K/mm3 (140-440) 10/17/20 04:57 Lymph % (Auto) 6.3 % (13.4-35.0) L 10/11/20 04:00 Pitkin % (Auto) 5.4 % (0.0-7.3) 10/11/20 04:00 Eos % (Auto) 0.9 % (0.0-4.3) 10/11/20 04:00 Baso % (Auto) 0.3 % (0.0-1.8) 10/11/20 04:00 Lymph # (Auto) 1.7 K/mm3 (1.2-5.4) 10/11/20 04:00 Pitkin # (Auto) 1.5 K/mm3 (0.0-0.8) H 10/11/20 04:00 Eos # (Auto) 0.3 K/mm3 (0.0-0.4) 10/11/20 04:00 Baso # (Auto) 0.1 K/mm3 (0.0-0.1) 10/11/20 04:00 Add Manual Diff Complete 10/15/20 05:50 Total Counted 100 10/15/20 05:50 Seg Neutrophils % 87.1 % (40.0-70.0) H 10/11/20 04:00 Seg Neuts % (Manual) 90.0 % (40.0-70.0) H 10/15/20 05:50 Band Neutrophils % 2.0 % 10/15/20 05:50 Lymphocytes % (Manual) 4.0 % (13.4-35.0) L 10/15/20 05:50 Reactive Lymphs % (Man) 1.0 % 10/02/20 12:18 Monocytes % (Manual) 4.0 % (0.0-7.3) 10/15/20 05:50 Eosinophils % (Manual) 1.0 % (0.0-4.3) 10/14/20 04:00 Myelocytes % 2.0 % 10/02/20 13:05 Metamyelocytes % 1.0 % 10/14/20 04:00 Nucleated RBC % Not Reportable 10/15/20 05:50 Seg Neutrophils # 23.5 K/mm3 (1.8-7.7) H 10/11/20 04:00 Seg Neutrophils # Man 20.9 K/mm3 (1.8-7.7) H 10/15/20 05:50 Band Neutrophils # 0.5 K/mm3 10/15/20 05:50 Lymphocytes # (Manual) 0.9 K/mm3 (1.2-5.4) L 10/15/20 05:50 Abs React Lymphs (Man) 0.0 K/mm3 10/15/20 05:50 Monocytes # (Manual) 0.9 K/mm3 (0.0-0.8) H 10/15/20 05:50 Eosinophils # (Manual) 0.0 K/mm3 (0.0-0.4) 10/15/20 05:50 Basophils # (Manual) 0.0 K/mm3 (0.0-0.1) 10/15/20 05:50 Metamyelocytes # 0.0 K/mm3 10/15/20 05:50 Myelocytes # 0.0 K/mm3 10/15/20 05:50 Promyelocytes # 0.0 K/mm3 10/15/20 05:50 Blast Cells # 0.0 K/mm3 10/15/20 05:50 WBC Morphology Not Reportable 10/15/20 05:50 Hypersegmented Neuts Not Reportable 10/15/20 05:50 Hyposegmented Neuts Not Reportable 10/15/20 05:50 Hypogranular Neuts Not Reportable 10/15/20 05:50 Smudge Cells Not Reportable 10/15/20 05:50 Toxic Granulation Not Reportable 10/15/20 05:50 Toxic Vacuolation Not Reportable 10/15/20 05:50 Dohle Bodies Not Reportable 10/15/20 05:50 Pelger-Huet Anomaly Not Reportable 10/15/20 05:50 Ester Rods Not Reportable 10/15/20 05:50 Platelet Estimate Consistent w auto 10/15/20 05:50 Clumped Platelets Not Reportable 10/15/20 05:50 Plt Clumps, EDTA Not Reportable 10/15/20 05:50 Large Platelets Not Reportable 10/15/20 05:50 Giant Platelets Not Reportable 10/15/20 05:50 Platelet Satelliting Not Reportable 10/15/20 05:50 Plt Morphology Comment Not Reportable 10/15/20 05:50 RBC Morphology Not Reportable 10/15/20 05:50 Dimorphic RBCs Not Reportable 10/15/20 05:50 Polychromasia Not Reportable 10/15/20 05:50 Hypochromasia Few 10/15/20 05:50 Poikilocytosis Not Reportable 10/15/20 05:50 Anisocytosis 1+ 10/15/20 05:50 Microcytosis Not Reportable 10/15/20 05:50 Macrocytosis Not Reportable 10/15/20 05:50 Spherocytes Not Reportable 10/15/20 05:50 Pappenheimer Bodies Not Reportable 10/15/20 05:50 Sickle Cells Not Reportable 10/15/20 05:50 Target Cells Not Reportable 10/15/20 05:50 Tear Drop Cells Not Reportable 10/15/20 05:50 Ovalocytes Not Reportable 10/15/20 05:50 Stomatocytes Few 10/14/20 04:00 Helmet Cells Not Reportable 10/15/20 05:50 Burk-Harrogate Bodies Not Reportable 10/15/20 05:50 Sunman Rings Not Reportable 10/15/20 05:50 [place] Cells Not Reportable 10/15/20 05:50 Bite Cells Not Reportable 10/15/20 05:50 Crenated Cell Not Reportable 10/15/20 05:50 Elliptocytes Not Reportable 10/15/20 05:50 Acanthocytes (Spur) Not Reportable 10/15/20 05:50 Rouleaux Not Reportable 10/15/20 05:50 Hemoglobin C Crystals Not Reportable 10/15/20 05:50 Schistocytes Not Reportable 10/15/20 05:50 Malaria parasites Not Reportable 10/15/20 05:50 Sharad Bodies Not Reportable 10/15/20 05:50 Hem Pathologist Commnt No 10/15/20 05:50 PT 13.0 Sec. (12.2-14.9) 10/05/20 05:00 INR 1.00 (0.87-1.13) 10/05/20 05:00 APTT 31.6 Sec. (24.2-36.6) 10/03/20 00:40 Fibrinogen 336 mg/dl (211-480) 10/04/20 10:00 D-Dimer > 66289 ng/mlDDU (0-234) H 10/04/20 10:00 ABG pH 7.473 (7.320-7.450) H 10/13/20 07:18 POC ABG pCO2 20.7 mmHg (32.0-48.0) L 10/13/20 07:18 ABG pCO2 25.0 mm Hg 10/10/20 04:42 POC ABG pO2 137.9 mmHg (83-108) H 10/13/20 07:18 ABG pO2 95.2 mm Hg (80.0-90.0) H 10/10/20 04:42 POC ABG HCO3 14.8 10/13/20 07:18 ABG HCO3 20.6 mmol/L (20.0-26.0) 10/10/20 04:42 ABG O2 Saturation 97.9 % (95.0-99.0) 10/10/20 04:42 ABG O2 Content 15.4 (0.0-44) 10/10/20 04:42 POC ABG Base Excess -6.9 10/13/20 07:18 ABG Base Excess -0.8 mmol/L (-2.0-3.0) 10/10/20 04:42 ABG Hemoglobin 11.2 (12.0-17.5) L 10/13/20 07:18 ABG Oxyhemoglobin 98.3 (94-98) H 10/13/20 07:18 ABG Carboxyhemoglobin 1.4 % (0.0-5.0) 10/10/20 04:42 ABG Methemoglobin 0.3 (0.0-1.5) 10/13/20 07:18 ABG Sodium 135.9 mmol/L (136.0-145.0) L 10/13/20 07:18 ABG Potassium 3.7 mmol/L (3.40-4.50) 10/13/20 07:18 ABG Chloride 111.0 mmol/L (98-107) H 10/13/20 07:18 ABG Glucose 109 mg/dL (65-95) H 10/13/20 07:18 VBG pH 6.949 (7.320-7.420) L* 10/02/20 Unknown Oxyhemoglobin 95.9 % (95.0-99.0) 10/10/20 04:42 Carboxyhemoglobin 0.3 (0.5-1.5) L 10/13/20 07:18 FiO2 30.0 10/13/20 07:18 Sodium 139 mmol/L (137-145) 10/15/20 05:50 Potassium 3.6 mmol/L (3.6-5.0) 10/15/20 05:50 Chloride 110.3 mmol/L (98-107) H 10/15/20 05:50 Carbon Dioxide 18 mmol/L (22-30) L 10/15/20 05:50 Anion Gap 14 mmol/L 10/15/20 05:50 BUN 12 mg/dL (7-17) 10/15/20 05:50 Creatinine 0.6 mg/dL (0.6-1.2) 10/15/20 05:50 Estimated GFR > 60 ml/min 10/15/20 05:50 BUN/Creatinine Ratio 20 % 10/15/20 05:50 Glucose 105 mg/dL (65-100) H 10/15/20 05:50 POC Glucose 93 mg/dL (70-105) 10/17/20 09:07 Lactic Acid 1.90 mmol/L (0.7-2.0) 10/04/20 22:00 Uric Acid 7.5 mg/dL (3.5-7.6) 10/02/20 13:05 Calcium 8.3 mg/dL (8.4-10.2) L 10/15/20 05:50 Ionized Calcium 4.4 mg/dL (4.8-5.6) L 10/07/20 21:00 Phosphorus 3.40 mg/dL (2.5-4.5) D 10/11/20 04:00 Magnesium 1.60 mg/dL (1.7-2.3) L 10/13/20 07:00 Total Bilirubin 0.90 mg/dL (0.1-1.2) 10/10/20 04:00 AST 122 units/L (5-40) H 10/10/20 04:00 ALT 81 units/L (7-56) H 10/10/20 04:00 Alkaline Phosphatase 94 units/L (35-129) 10/10/20 04:00 Lactate Dehydrogenase 769 units/L (91-180) H 10/02/20 13:05 NT-Pro-B Natriuret Pep 2788 pg/mL (0-450) H 10/04/20 10:00 Total Protein 5.2 g/dL (6.3-8.2) L 10/10/20 04:00 Albumin 2.7 g/dL (3.9-5) L 10/10/20 04:00 Albumin/Globulin Ratio 1.1 % 10/10/20 04:00 Procalcitonin 0.58 ng/mL (<0.15) 10/11/20 15:33 Arterial Blood Glucose 109 mg/dL (65-95) H 10/13/20 07:18 Arterial Blood Ionized Calcium 4.6 mg/dL (4.6-5.3) 10/13/20 07:18 Urine Color Yellow (Yellow) 10/11/20 13:26 Urine Turbidity Clear (Clear) 10/11/20 13:26 Urine pH 7.0 (5.0-7.0) 10/11/20 13:26 Ur Specific Vendor 1.014 (1.003-1.030) 10/11/20 13:26 Urine Protein 100 mg/dl mg/dL (Negative) 10/11/20 13:26 Urine Glucose (UA) Neg mg/dL (Negative) 10/11/20 13:26 Urine Ketones Neg mg/dL (Negative) 10/11/20 13:26 Urine Blood Mod (Negative) 10/11/20 13:26 Urine Nitrite Neg (Negative) 10/11/20 13:26 Urine Bilirubin Neg (Negative) 10/11/20 13:26 Urine Urobilinogen < 2.0 mg/dL (<2.0) 10/11/20 13:26 Ur Leukocyte Esterase Sm (Negative) 10/11/20 13:26 Urine WBC (Auto) 24.0 /HPF (0.0-6.0) H 10/11/20 13:26 Urine RBC (Auto) 59.0 /HPF (0.0-6.0) 10/11/20 13:26 Urine Bacteria (Auto) 1+ /HPF (Negative) 10/11/20 13:26 Urine Mucus Few /HPF 10/11/20 13:26 Random Vancomycin 10.7 ug/mL (0-40.0) 10/16/20 13:09 Phenytoin 5.7 ug/mL (10.0-20.0) L 10/13/20 07:00 C. difficile Tox (PCR) Positive (Negative) 10/16/20 10:22 Coronavirus (PCR) Negative (Negative) 10/08/20 14:15 Blood Type O POSITIVE 10/02/20 12:50 Antibody Screen Negative 10/02/20 12:50 Crossmatch See Detail 10/02/20 12:50 Microbiology: Microbiology 10/15/20 16:55 Peripheral/Venous Blood Culture - Preliminary NO GROWTH AFTER 24 HOURS 10/11/20 15:33 Peripheral/Venous Blood Culture - Final NO GROWTH AFTER 5 DAYS 10/11/20 15:33 Peripheral/Venous Blood Culture - Final NO GROWTH AFTER 5 DAYS - Diagnostic Impressions Diagnostic Impressions: Echocardiogram 10/03/20 13:42 Transthoracic Echocardiogram Indication: S/P Cardiac Arrest R/O Cardiomyopathy BP: 133/71 Conclusions *Global left ventricular systolic function is normal. *The estimated ejection fraction is 60-65%. *There is trace of mitral regurgitation. *The right 0heart chambers are both slightly dilated. *There is mild tricuspid regurgitation. *There is mild-moderate pulmonary hypertension. *The right ventricular systolic pressure is calculated at 44 mmHg. *The study quality is technically difficult. Findings Procedure Info: The study quality is technically difficult. The study is technically limited due to patient body habitus. The study was technically limited due to the patient's inability to lay in the left lateral decubitus position. Left Ventricle: The left ventricular chamber size is normal. There is no left ventricular hypertrophy. Global left ventricular systolic function is normal. The estimated ejection fraction is 60-65%. Left Atrium: The left atrial chamber size is normal. Right Ventricle: The right ventricle is slightly dilated. Right Atrium: The right atrium is mildly dilated. Aortic Valve: The aortic valve leaflets are mildly thickened. There is no evidence of aortic regurgitation. There is no evidence of aortic stenosis. Mitral Valve: The mitral valve leaflets are mildly thickened. There is trace of mitral regurgitation. There is no evidence of mitral stenosis. Tricuspid Valve: There is mild tricuspid regurgitation. The right ventricular systolic pressure is calculated at 44 mmHg. There is evidence of mild pulmonary hypertension. Pulmonic Valve: There is trace pulmonic regurgitation. Pericardium: There is no pericardial effusion. Aorta: There is no dilatation of the ascending aorta. There is no dilatation of the aortic root. Venous: The inferior vena cava is dilated. Measurements Chambers 2D Name Value Normal Range IVSd (2D) 1 cm (0.6 - 1.1) LVPWd (2D) 1.01 cm (0.6 - 1.1) LVIDd (2D) 4.58 cm (3.7 - 5.6) LVIDs (2D) 3.17 cm (2 - 3.8) LV FS (2D) 30.93 % - EF Teichholz (2D) 58.66 % - Ao root diameter (2D) 2.94 cm (2 - 3.7) Volumes/Mass Name Value Normal Range LA ESV SP 4CH (A/L) 72.82 ml - LA ESV SP 2CH (A/L) 66.86 ml - LA ESV BP (A/L) 74.49 ml - LA ESV SP 4CH (MOD) 71.03 ml - LA ESV SP 2CH (MOD) 64.3 ml - LV EDV SP 4CH (MOD) 98.82 ml - LV ESV SP 4CH (MOD) 24.8 ml - EF SP 4CH (MOD) 74.9 % - LV EDV SP 2CH (MOD) 86.1 ml - LV ESV SP 2CH (MOD) 36.93 ml - EF SP 2CH (MOD) 57.11 % - LV EDV BP 94.4 ml - LV ESV BP 32.66 ml - BP EF (MOD) 65.4 % - Diastolic/Systolic Function Name Value Normal Range MV E-wave Vmax 1.04 m/sec - MV deceleration time 160.46 msec - MV A-wave Vmax 0.92 m/sec - MV E:A ratio 1.14 ratio - Aortic Valve Name Value Normal Range AV Vmax 2.12 m/sec - AV VTI 22.37 cm - AV peak gradient 17.95 mmHg - AV mean gradient 7.29 mmHg - LVOT diameter 2.01 cm - LVOT Vmax 1.8 m/sec - LVOT VTI 27.17 cm - LVOT peak gradient 12.91 mmHg - LVOT mean gradient 6.83 mmHg - SV LVOT 86.42 ml - ANITA (continuity Vmax) 2.7 cm2 - ANITA (continuity VTI) 3.86 cm2 - Ascending Ao 3.18 cm - Tricuspid Valve Name Value Normal Range TV E-wave Vmax 0.88 m/sec - TR Vmax 3.01 m/sec - TR peak gradient 36.27 mmHg - RAP 8 mmHg - RVSP 44 mmHg - IVC diameter 2.65 cm (1.2 - 2.3) Pulmonic Valve/Qp:Qs Name Value Normal Range PV Vmax 1.22 m/sec - PV peak gradient 5.91 mmHg - RVOT Vmax 0.87 m/sec - RVOT VTI 13.32 cm - RVOT peak gradient 3 mmHg - PV acceleration time 110.37 msec - Hamlin/IV: Voiding Method Indwelling Catheter IV Catheter Type [Right INT / Saline Lock Antecubital] IV Catheter Type [Right Upper PICC Line arm] IV Catheter Type [Left Triple Lumen Cath Internal Jugular] IV Catheter Type [Left Hand] Peripheral IV IV Catheter Type [Left Peripheral IV Antecubital] Active Medications - Current Medications Current Medications: Generic Name Dose Route Start Last Admin Trade Name Freq PRN Reason Stop Dose Admin Acetaminophen 650 mg 10/05/20 16:34 10/16/20 00:13 Acetaminophen 325 Mg/10.15 Ml Oral Liqd Unit Dose FEEDTUBE 650 mg Q6H PRN Administration Non Cardiac Pain or Temp>100.5 Albuterol/Ipratropium 1 ampul 10/10/20 20:00 10/17/20 08:29 Ipratropium/Albuterol Sulfate 3 Ml Ampul.Neb IH 1 ampul Q8HRT ERINN Administration Lipase/Protease/Amylase 1 each 10/05/20 11:09 Lipase 10,500/Protease 25,000/Amylase 43,750 (Units) Dr Barakat FEEDTUBE PRN PRN For Clogged Feeding Tube Buspirone HCl 10 mg 10/10/20 10:00 10/17/20 09:07 Buspirone 10 Mg Tab PO 10 mg BID ERINN Administration Buspirone HCl 5 mg 10/10/20 10:00 10/17/20 09:05 Buspirone 5 Mg Tab PO 5 mg BID ERINN Administration Famotidine 20 mg 10/07/20 10:00 10/17/20 09:05 Famotidine 20 Mg Tab PO 20 mg BID ERINN Administration Fentanyl 50 mcg 10/10/20 19:54 10/16/20 13:21 Fentanyl 100 Mcg/2 Ml Inj IV 50 mcg Q3HR PRN Administration Labored breathing Furosemide 40 mg 10/17/20 10:00 10/17/20 09:15 Furosemide 40 Mg Tab PO 40 mg QDAY ERINN Administration Hydralazine HCl 20 mg 10/07/20 11:49 10/17/20 07:20 Hydralazine 20 Mg/1 Ml Inj IV 20 mg Q6H PRN Administration SBP >170 Hydralazine HCl 50 mg 10/17/20 09:00 10/17/20 09:05 Hydralazine 25 Mg Tab PO 50 mg Q8HR ERINN Administration Hydrophilic Ointment 1 applic 10/04/20 06:55 Lip Therapy Vaseline TP Q2HR PRN Dry Lips Dexmedetomidine HCl 1,000 mcg/ 260 mls @ 7.249 mls/hr 10/13/20 05:00 10/17/20 09:22 Sodium Chloride IV 1.3 mcg/kg/hr TITRATE ERINN 47.117 mls/hr Titration Protocol 0.2 MCG/KG/HR Dextrose 1,000 mls @ 75 mls/hr 10/13/20 11:00 10/17/20 03:21 D10w IV 75 mls/hr DIRECT ERINN Administration Cefepime HCl 2 gm in 100 mls @ 200 mls/hr 10/14/20 22:00 10/17/20 09:07 Cefepime/Ns 2 Gm/100 Ml IV 200 mls/hr Q12HR ERINN Administration Protocol Metronidazole 500 mg in 100 mls @ 100 mls/hr 10/14/20 13:00 10/17/20 05:34 Flagyl 500 Mg/100 Ml IV 100 mls/hr Q8H ERINN Administration Protocol Vancomycin HCl 1,750 mg/ 535 mls @ 333.333 mls/hr 10/15/20 02:00 10/17/20 02:05 Sodium Chloride IV 333.333 mls/hr Q12H ERINN Administration Insulin Human Regular 0 unit 10/12/20 13:00 10/17/20 09:08 Insulin Regular, Human 100 Unit/Ml 3ml Vial SUB-Q Not Given Q4H ERINN Protocol Labetalol HCl 300 mg 10/17/20 09:00 10/17/20 08:43 Labetalol 100 Mg Tab PO Not Given TID ERINN Lorazepam 2 mg 10/02/20 22:05 10/10/20 16:56 Lorazepam 2 Mg/Ml Vial IV 2 mg Q2H PRN Administration Seizures Multi-Ingred Cream/Lotion/Oil/Oint 1 applic 10/04/20 06:55 Mineral Oil/Petrolatum, White Ophth Oint 3.5 Gm OU Q4HR PRN Dry Eye(s) Simple Syrup 15 ml 10/05/20 11:09 Simple Syrup 15 Ml FEEDTUBE PRN PRN Hypoglycemia Simple Syrup 30 ml 10/05/20 11:09 Simple Syrup 15 Ml FEEDTUBE PRN PRN Hypoglycemia Sodium Bicarbonate 325 mg 10/05/20 11:09 Sodium Bicarbonate 325 Mg Tab FEEDTUBE PRN PRN For Clogged Feeding Tube Sodium Bicarbonate 1,300 mg 10/13/20 14:00 10/17/20 09:05 Sodium Bicarbonate 650 Mg Tab PO 1,300 mg TID ERINN Administration Topiramate 50 mg 10/05/20 11:00 10/17/20 09:06 Topiramate Tab 25 Mg Tab PO 50 mg Q12HR ERINN Administration Vancomycin HCl 125 mg 10/15/20 14:00 10/17/20 09:06 Vancomycin 250 Mg/10 Ml Oral Liqd PO 10/18/20 20:01 125 mg Q6H ERINN Administration Protocol Nutrition/Malnutrition Assess - Dietary Evaluation Nutrition/Malnutrition Findings: Nutrition Notes Start: 10/04/20 11:13 Freq: Status: Active Protocol: Document 10/15/20 08:34 (Rec: 10/15/20 08:39 [id number]) Nutrition Notes Initial or Follow up Reassessment Current Diagnosis Acute Kidney Injury, Respiratory Failure Other Pertinent Diagnosis Cardiac arrest, s/p c-sectuion and supracervial hysterectomy Current Diet Vital AF 1.2 at 65ml/hr Labs/Tests Reviewed Pertinent Medications Reviewed Height 5 ft 8 in Weight 118 kg [place] Body Weight (kg) 63.63 BMI 39.5 Weight change and time frame Wt change noted Weight Status Morbidly Obese Subjective/Other Information FU for TF tolerance. Observed TF running at goal rate and per RN pt is tolerating. Percent of energy/protein needs met: 100%/74% Burn Absent Trauma Absent GI Symptoms None Food Allergy Yes Current % PO Negligible Minimum of two criteria No Fluid Accumulation Mild (non-severe) #1 Nutrition Diagnosis Inadequate oral intake Diagnosis Progress(for reassessment Continues documentation) Is patient on ventilator? Yes Is Patient Ambulatory and/or Out of Bed No REE-([facility]-confined to bed) 2327.856 Kcal/Kg value to use for calculation 15 Approximate Energy Requirements Using 1770 kcal/Kg Calculation Used for Recommendations Kcal/kg Additional Notes Protein needs are up to 159g ( up to 2.5g/kg) Fluid needs are 1ml/kcal Nutrition Intervention Change Diet Order: Continue TF Nutrition Support: Vital AF 1.2 at 65 ml/hr. Flush with 100 ml q4h Kcal 1,872 Protein (gm) 117 Fluid (mL) 1,265 Goal #1 Meet at least 75% of energy and protein needs via TF Anticipated Discharge Needs: Unable to determine at this time Follow-Up By: 10/22/20 Additional Comments FU for TF tolerance
--- NOTE | 2020-10-17 14:01 | Progress Note ---
Assessment and Plan Cultures: 10/05/2020 Blood culture: no growth 10/11/2020 blood culture: No growth 10/11/2020 tracheal aspirate: Usual respiratory jaylan 10/14/2020 blood culture: GNR, GPC 10/15/2020 blood culture: Pending A/P: 30-year-old female with GERD, hypertension, seizure disorder was admitted to the hospital at 36 weeks with seizures. She became hypoxic and pulseless requiring CPR. Following emergent section, patient developed hemorrhage, DIC. She has been admitted to ICU, remains on the vent: #Persistent fever, sepsis is likely secondary to bacteremia: ?PICC, no acute intra-abdominal source noted on CT #Status post arrest 10/07/2020: Apparently had a brief code due to ?ET tube clot/plugging. #Initial shock, DIC/persistent fever: Secondary to hemorrhage, ?possible sepsis. Possible pneumonia versus fluid overload. ?Central fever v/s from VTE. Noted diarrhea ? Cdiff #Acute kidney injury: resolved #Acute respiratory failure: remains on the vent. #Transaminitis: ?HELLP. Improving. #Preeclampsia # hemorrhage: Status post , status post supracervical hysterectomy. #Encephalopathy post cardiac arrest: Neurology on board. #C. difficile: On oral vancomycin Recs: -ICU requested new PICC line to be placed while patient ongoing bacteremia. It will have to be replaced after blood cultures are cleared and patient stabilized. -Follow-up repeat blood cultures -Follow-up ID and JOSHUA of blood cultures -Continue empiric Cefepime, Flagyl and IV vancomycin -Continue p.o. vancomycin to complete 10 days of therapy. Monitor diarrhea output while receiving G. Aranza Oneill MD [facility] ([facility] O: [phone] F: [phone] Subjective Date of service: 10/17/20 Principal diagnosis: Eclampsia/HELLP Syndrome, ADOLPH, DIC; s/p , s/p supracervical hyst Interval history: Patient febrile to 100.4 yesterday with intermittent fevers. White count remains elevated at 15. C. difficile has returned positive. Blood cultures on 10/14 are positive for gram-negative rods. She remains intubated and sedated. Imaging personally reviewed: CT abdomen pelvis no acute abnormality. Objective - Exam Narrative Exam: Constitutional: awake, intubated, on the vent Head, Ears, Nose: Normocephalic, atraumatic. External ears, nose normal Eyes: Conjunctivae/corneas clear. No icterus. No ptosis. Neck: intubated Oral: intubated Cardiovascular: S1, S2 + Respiratory: AE fair bilaterally and equal GI: Soft, bowel sounds +. lower abdominal incision present with dressing Musculoskeletal: edematous extremities, no cyanosis. Skin: No rash or abscess Hem/Lymphatic: No palpable cervical or supraclavicular nodes. No lymphangitis Psych: no agitation Neurological: awake, doesn't follow commands, but opens eyes, intubated, on the vent, exam limited - Constitutional Vitals: Vital Signs Temp Pulse Resp BP Pulse Ox 98.7 F 83 24 137/83 98 10/17/20 12:00 10/17/20 13:00 10/17/20 13:00 10/17/20 13:00 10/17/20 13:00 Temperature -Last 24 Hours Temperature 98.7 F Temperature 98.5 F Temperature 98.6 F Temperature 98.8 F Temperature 97.4 F Temperature 100.4 F Temperature 99.8 F - Labs CBC & Chem 7: 10/17/20 04:57 10/15/20 05:50 Labs: Abnormal lab results 10/17/20 10/17/20 Range/Units 04:57 05:25 WBC 15.2 H (4.5-11.0) K/mm3 RBC 3.43 L (3.65-5.03) M/mm3 RDW 18.1 H (13.2-15.2) % POC Glucose 107 H (70-105) mg/dL
[2020-10-18] MEDS: VANCOMYCIN 250 MG/10 ML ORAL LIQD PO SCH ×4 (01:07→20:33)
[2020-10-18] MEDS: VANCOMYCIN 1,750 MG in SODIUM CHLORIDE 0.9% 500 ML 500 ML IV SCH ×2 (01:46→13:40)
[2020-10-18] MEDS: INSULIN REGULAR, HUMAN 100 UNIT/ML 3ML VIAL SUB-Q SCH ×6 (01:47→21:58)
[2020-10-18] MEDS: IPRATROPIUM/ALBUTEROL SULFATE 3 ML AMPUL.NEB IH SCH ×3 (01:51→16:17)
[2020-10-18] MEDS: hydrALAZINE 25 MG TAB PO SCH ×3 (05:02→22:08)
[2020-10-18] MEDS: metroNIDAZOLE/NS 500 MG/100 ML 500 MG/100 ML BAG IV SCH ×3 (05:03→20:34)
[2020-10-18] MEDS: dexmedeTOMIDine 1,000 MCG in SODIUM CHLORIDE 0.9% 250ML 250 ML IV SCH ×3 (05:03→18:30)
--- NOTE | 2020-10-18 07:26 | Progress Note ---
Assessment and Plan Assessment and plan: 30 year old -[place] female CHE 10/25/20 at 36w5d who presents with seizures in triage on 10/02/20. Pt was not able to provide history but per pt's , she presented to the hospital to return a 24 hour urine specimen for analysis. She then suddenly reported that she did not feel good. She was taken to labor and delivery and shortly after arrival, she began seizing. During this time, a code met was called because the patient became hypoxic. She was then noted to be without a pulse. Chest compressions were started immediately, and the patient was emergently taken to the operating room for delivery of the fetus. Off note, This patient has had care at [facility] with comanagement by [facility] since 11 wks complicated by ADHD, morbid obesity, generalized anxiety disorder, panic attacks, chronic narcotic use, fibromyalgia, GERD, Irritable Bowel Syndrome, Migraines, h/o endometrial ablation and ovarian vein embolization, genital herpes, insomnia, LGA fetus, nausea and vomiting, polyhydramnios, quad screen positive for Down's Syndrome, and previous x 3. She is GBS negative. 11:30: Pt brought to L&D triage for evaluation of possible labor. Pt accompanied by her spouse. Pt spouse poor historian; unable to obtain history- allergies at this time. Pt taken from registration to triage area via WC. Pt unresponsive, actively seizing with snorous respirations. bakery deliverer, Kassy, called and requesting assistance. 11:35: Multiple staff at bedside. Pt 02 sat 67% on nonrebreather, unable to read BP at this time. Yifan Theodore CRNA, at bedside for intubation and assistance with IV insertion. INT attempt by multiple RNs unsuccessful at this time. 11:42: Pt being bagged by KORIN, 02% 79%. No pulse palpated, compressions started at this time; bharati young called and Dr. Newberry preparing OR for emergent c/s. 11:44: Continued compressions on stretcher while transporting pt to OR 1. Pt being bagged with jaw thrust manuever in place by KORIN Stringer student. 11:45: Arrival to OR 1. Dr. Newberry and Dr. Portillo present for emergent c/s. Code team arrived for continued care. patient revived and c/s done Patient has been bleeding from C/s site followed by supracervical hysterectomy for severe bleeding Patient transfused multiple units of PRBC, Patient in DIC. Transferred to the ICU 10/03. Patient seen and examined at bedside this morning. Patient is nonresponsive and mechanically ventilated. On pressors. Labs reviewed-has leukocytosis, anemia, thrombocytopenia, ADOLPH and lactic acidosis. Started on IV antibiotics to cover possible sepsis secondary to DIC. Hematology oncology recommendations appreciated-needs additional cryoprecipitate and FFP. Monitor D-dimer, fibrinogen and frequent labs. Nephrology consulted for lactic acidosis and ADOLPH. 10/04. Remains mechanically ventilated. Kevin antibiotics. Labs shows improved acidosis - lactic acid 3.5. Hb drop noted. Getting transfused 2 units PRBCs. Platelet count is ~40k. Continue to monitor labs closely. Critical care team on board. 10/05; xray reviewed, concerning for multifocal infilrate, likely underlying Pneumonia, will add ID consult to assist with management of this critically ill patient, start tube feed, closely monitor renal system 10/06: Resumed care, remains on mechanical ventilation. No active bleeding, H&H stable. Continue to monitor CBC and BMP. Continue IV antibiotic for underlying pneumonia. Follow critical care and ID recommendation. 10/07: Remains on mechanical ventilation. No active bleeding, H&H stable. Critical care following, wean off ventilation as tolerated. 10/08: Patient had another cardiac arrest last night. Remains on mechanical ventilation, update family. Continue supportive care -poor prognosis 10/09: Called patient mother and discussed about patient care and management. Answered all question to best of my knowledge and family satisfaction. Patient remains on mechanical ventilation, cardiac arrest x2 so far. Critically sick, poor prognosis 10/10: remains on mechanical ventilation. h/h stable, no active bleeding. monito r CBC/BMP 10/11: WBC trended up with diarrhea, started on vancomycin po. remains on MV, off pressor, tolerating TF 10/12: remains on MV, off pressor, tolerating TF. called family for update but unable to reach, could not leave message as it was full. cont supportive care, wean off vent as tolerated. 10/13/2020; patient is on mechanical ventilation, tolerating tube feeding. Patient has labored breathing. Neuro was consulted and recommend MRI. Patient is on Precedex. Rectal tube in place. 10/14/2020; patient is on mechanical ventilation, Precedex. Patient had fever and blood culture ordered. Patient is on IV vancomycin per ID recommendation. Neuro consulted and recommend MRI. Continue to monitor. Prognosis is guarded. 10/15/2020; patient is on mechanical ventilation, Precedex. Patient had fever and blood culture ordered. Patient is on IV vancomycin per ID recommendation. Neuro consulted and recommend MRI. Continue to monitor. Prognosis is guarded. 10/17: Remains with C.DIFF and Bactermia, Poor prognosis. No purposful movement. MRI and EEG discussed with Intensvisit, Continue aggressive BP control. 10/18: Blood pressure better controlled MRI done 10/15 shows mild improvement in edema. We will continue to monitor mother was at bedside yesterday. Nursing documentation trach and PEG discussed with the mother including goals of care. She is still in denial about the gravity of her daughters her condition which is understandable considering her age. Continue aggressive management at this time. Await for bacteremia to clear by ID before placing PICC line. The high probability of a clinically significant, sudden or life threatening deterioration of the [MULTIPLE ORGAN] system(s) required my full and direct attention, intervention and personal management. The aggregate critical care time was [35] minutes. This time is in addition to time spent performing reported procedures but includes the following: [X] Data Review and interpretation [X] Patient assessment and monitoring of vital signs [X] Documentation [X] Medication orders and management History Interval history: Patient seen and examined, remains critical ill on the ventilator Hospitalist Physical - Physical exam Narrative exam: VITAL SIGNS: Reviewed. GENERAL: Intubated HEAD: No signs of head trauma. Opens her eyes but no purposeful movement EYES: Pupils are equal. MOUTH: OT in place NECK: No adenopathy, no JVD. CHEST: Rales posteriorly CARDIAC: normal S1 and S2, without murmurs, gallops, or rubs. ABDOMEN: Soft, non tender and non distended. surgical wound in tact, No rebound or guarding, and no masses palpated. Bowel Sounds normal. AVINASH drain intact with bloody fluid MUSCULOSKELETAL: No edema NEUROLOGIC EXAM: Intubated SKIN: No obvious lesions - Constitutional Vitals: Temp Pulse Resp BP Pulse Ox 98.7 F 93 H 22 114/69 99 10/18/20 01:26 10/18/20 06:16 10/18/20 06:16 10/18/20 06:16 10/18/20 06:16 General appearance: Present: obese, other (sedated) HEART Score - HEART Score Age: < 45 Risk factors: 1-2 risk factors - Critical Actions Critical Actions: >7 pts:50-65% risk of adverse cardiac event. Early invasive measures Results - Labs CBC & Chem 7: 10/17/20 04:57 10/15/20 05:50 Labs: Laboratory Last Values WBC 15.2 K/mm3 (4.5-11.0) H 10/17/20 04:57 RBC 3.43 M/mm3 (3.65-5.03) L 10/17/20 04:57 Hgb 10.1 gm/dl (10.1-14.3) 10/17/20 04:57 Hct 31.2 % (30.3-42.9) 10/17/20 04:57 MCV 91 fl (79-97) 10/17/20 04:57 MCH 29 pg (28-32) 10/17/20 04:57 MCHC 32 % (30-34) 10/17/20 04:57 RDW 18.1 % (13.2-15.2) H 10/17/20 04:57 Plt Count 366 K/mm3 (140-440) 10/17/20 04:57 Lymph % (Auto) 6.3 % (13.4-35.0) L 10/11/20 04:00 Hemphill % (Auto) 5.4 % (0.0-7.3) 10/11/20 04:00 Eos % (Auto) 0.9 % (0.0-4.3) 10/11/20 04:00 Baso % (Auto) 0.3 % (0.0-1.8) 10/11/20 04:00 Lymph # (Auto) 1.7 K/mm3 (1.2-5.4) 10/11/20 04:00 [place]phill # (Auto) 1.5 K/mm3 (0.0-0.8) H 10/11/20 04:00 Eos # (Auto) 0.3 K/mm3 (0.0-0.4) 10/11/20 04:00 Baso # (Auto) 0.1 K/mm3 (0.0-0.1) 10/11/20 04:00 Add Manual Diff Complete 10/15/20 05:50 Total Counted 100 10/15/20 05:50 Seg Neutrophils % 87.1 % (40.0-70.0) H 10/11/20 04:00 Seg Neuts % (Manual) 90.0 % (40.0-70.0) H 10/15/20 05:50 Band Neutrophils % 2.0 % 10/15/20 05:50 Lymphocytes % (Manual) 4.0 % (13.4-35.0) L 10/15/20 05:50 Reactive Lymphs % (Man) 1.0 % 10/02/20 12:18 Monocytes % (Manual) 4.0 % (0.0-7.3) 10/15/20 05:50 Eosinophils % (Manual) 1.0 % (0.0-4.3) 10/14/20 04:00 Myelocytes % 2.0 % 10/02/20 13:05 Metamyelocytes % 1.0 % 10/14/20 04:00 Nucleated RBC % Not Reportable 10/15/20 05:50 Seg Neutrophils # 23.5 K/mm3 (1.8-7.7) H 10/11/20 04:00 Seg Neutrophils # Man 20.9 K/mm3 (1.8-7.7) H 10/15/20 05:50 Band Neutrophils # 0.5 K/mm3 10/15/20 05:50 Lymphocytes # (Manual) 0.9 K/mm3 (1.2-5.4) L 10/15/20 05:50 Abs React Lymphs (Man) 0.0 K/mm3 10/15/20 05:50 Monocytes # (Manual) 0.9 K/mm3 (0.0-0.8) H 10/15/20 05:50 Eosinophils # (Manual) 0.0 K/mm3 (0.0-0.4) 10/15/20 05:50 Basophils # (Manual) 0.0 K/mm3 (0.0-0.1) 10/15/20 05:50 Metamyelocytes # 0.0 K/mm3 10/15/20 05:50 Myelocytes # 0.0 K/mm3 10/15/20 05:50 Promyelocytes # 0.0 K/mm3 10/15/20 05:50 Blast Cells # 0.0 K/mm3 10/15/20 05:50 WBC Morphology Not Reportable 10/15/20 05:50 Hypersegmented Neuts Not Reportable 10/15/20 05:50 Hyposegmented Neuts Not Reportable 10/15/20 05:50 Hypogranular Neuts Not Reportable 10/15/20 05:50 Smudge Cells Not Reportable 10/15/20 05:50 Toxic Granulation Not Reportable 10/15/20 05:50 Toxic Vacuolation Not Reportable 10/15/20 05:50 Dohle Bodies Not Reportable 10/15/20 05:50 Pelger-Huet Anomaly Not Reportable 10/15/20 05:50 Ester Rods Not Reportable 10/15/20 05:50 Platelet Estimate Consistent w auto 10/15/20 05:50 Clumped Platelets Not Reportable 10/15/20 05:50 Plt Clumps, EDTA Not Reportable 10/15/20 05:50 Large Platelets Not Reportable 10/15/20 05:50 Giant Platelets Not Reportable 10/15/20 05:50 Platelet Satelliting Not Reportable 10/15/20 05:50 Plt Morphology Comment Not Reportable 10/15/20 05:50 RBC Morphology Not Reportable 10/15/20 05:50 Dimorphic RBCs Not Reportable 10/15/20 05:50 Polychromasia Not Reportable 10/15/20 05:50 Hypochromasia Few 10/15/20 05:50 Poikilocytosis Not Reportable 10/15/20 05:50 Anisocytosis 1+ 10/15/20 05:50 Microcytosis Not Reportable 10/15/20 05:50 Macrocytosis Not Reportable 10/15/20 05:50 Spherocytes Not Reportable 10/15/20 05:50 Pappenheimer Bodies Not Reportable 10/15/20 05:50 Sickle Cells Not Reportable 10/15/20 05:50 Target Cells Not Reportable 10/15/20 05:50 Tear Drop Cells Not Reportable 10/15/20 05:50 Ovalocytes Not Reportable 10/15/20 05:50 Stomatocytes Few 10/14/20 04:00 Helmet Cells Not Reportable 10/15/20 05:50 [place] Bodies Not Reportable 10/15/20 05:50 [place] Rings Not Reportable 10/15/20 05:50 Antoine Cells Not Reportable 10/15/20 05:50 Bite Cells Not Reportable 10/15/20 05:50 Crenated Cell Not Reportable 10/15/20 05:50 Elliptocytes Not Reportable 10/15/20 05:50 Acanthocytes (Spur) Not Reportable 10/15/20 05:50 Rouleaux Not Reportable 10/15/20 05:50 Hemoglobin C Crystals Not Reportable 10/15/20 05:50 Schistocytes Not Reportable 10/15/20 05:50 Malaria parasites Not Reportable 10/15/20 05:50 Sharad Bodies Not Reportable 10/15/20 05:50 Hem Pathologist Commnt No 10/15/20 05:50 PT 13.0 Sec. (12.2-14.9) 10/05/20 05:00 INR 1.00 (0.87-1.13) 10/05/20 05:00 APTT 31.6 Sec. (24.2-36.6) 10/03/20 00:40 Fibrinogen 336 mg/dl (211-480) 10/04/20 10:00 D-Dimer > 83716 ng/mlDDU (0-234) H 10/04/20 10:00 ABG pH 7.473 (7.320-7.450) H 10/13/20 07:18 POC ABG pCO2 20.7 mmHg (32.0-48.0) L 10/13/20 07:18 ABG pCO2 25.0 mm Hg 10/10/20 04:42 POC ABG pO2 137.9 mmHg (83-108) H 10/13/20 07:18 ABG pO2 95.2 mm Hg (80.0-90.0) H 10/10/20 04:42 POC ABG HCO3 14.8 10/13/20 07:18 ABG HCO3 20.6 mmol/L (20.0-26.0) 10/10/20 04:42 ABG O2 Saturation 97.9 % (95.0-99.0) 10/10/20 04:42 ABG O2 Content 15.4 (0.0-44) 10/10/20 04:42 POC ABG Base Excess -6.9 10/13/20 07:18 ABG Base Excess -0.8 mmol/L (-2.0-3.0) 10/10/20 04:42 ABG Hemoglobin 11.2 (12.0-17.5) L 10/13/20 07:18 ABG Oxyhemoglobin 98.3 (94-98) H 10/13/20 07:18 ABG Carboxyhemoglobin 1.4 % (0.0-5.0) 10/10/20 04:42 ABG Methemoglobin 0.3 (0.0-1.5) 10/13/20 07:18 ABG Sodium 135.9 mmol/L (136.0-145.0) L 10/13/20 07:18 ABG Potassium 3.7 mmol/L (3.40-4.50) 10/13/20 07:18 ABG Chloride 111.0 mmol/L (98-107) H 10/13/20 07:18 ABG Glucose 109 mg/dL (65-95) H 10/13/20 07:18 VBG pH 6.949 (7.320-7.420) L* 10/02/20 Unknown Oxyhemoglobin 95.9 % (95.0-99.0) 10/10/20 04:42 Carboxyhemoglobin 0.3 (0.5-1.5) L 10/13/20 07:18 FiO2 30.0 10/13/20 07:18 Sodium 139 mmol/L (137-145) 10/15/20 05:50 Potassium 3.6 mmol/L (3.6-5.0) 10/15/20 05:50 Chloride 110.3 mmol/L (98-107) H 10/15/20 05:50 Carbon Dioxide 18 mmol/L (22-30) L 10/15/20 05:50 Anion Gap 14 mmol/L 10/15/20 05:50 BUN 12 mg/dL (7-17) 10/15/20 05:50 Creatinine 0.6 mg/dL (0.6-1.2) 10/15/20 05:50 Estimated GFR > 60 ml/min 10/15/20 05:50 BUN/Creatinine Ratio 20 % 10/15/20 05:50 Glucose 105 mg/dL (65-100) H 10/15/20 05:50 POC Glucose 106 mg/dL (70-105) H 10/18/20 05:45 Lactic Acid 1.90 mmol/L (0.7-2.0) 10/04/20 22:00 Uric Acid 7.5 mg/dL (3.5-7.6) 10/02/20 13:05 Calcium 8.3 mg/dL (8.4-10.2) L 10/15/20 05:50 Ionized Calcium 4.4 mg/dL (4.8-5.6) L 10/07/20 21:00 Phosphorus 3.40 mg/dL (2.5-4.5) D 10/11/20 04:00 Magnesium 1.60 mg/dL (1.7-2.3) L 10/13/20 07:00 Total Bilirubin 0.90 mg/dL (0.1-1.2) 10/10/20 04:00 AST 122 units/L (5-40) H 10/10/20 04:00 ALT 81 units/L (7-56) H 10/10/20 04:00 Alkaline Phosphatase 94 units/L (35-129) 10/10/20 04:00 Lactate Dehydrogenase 769 units/L (91-180) H 10/02/20 13:05 NT-Pro-B Natriuret Pep 2788 pg/mL (0-450) H 10/04/20 10:00 Total Protein 5.2 g/dL (6.3-8.2) L 10/10/20 04:00 Albumin 2.7 g/dL (3.9-5) L 10/10/20 04:00 Albumin/Globulin Ratio 1.1 % 10/10/20 04:00 Procalcitonin 0.58 ng/mL (<0.15) 10/11/20 15:33 Arterial Blood Glucose 109 mg/dL (65-95) H 10/13/20 07:18 Arterial Blood Ionized Calcium 4.6 mg/dL (4.6-5.3) 10/13/20 07:18 Urine Color Yellow (Yellow) 10/11/20 13:26 Urine Turbidity Clear (Clear) 10/11/20 13:26 Urine pH 7.0 (5.0-7.0) 10/11/20 13:26 Ur Specific [place] 1.014 (1.003-1.030) 10/11/20 13:26 Urine Protein 100 mg/dl mg/dL (Negative) 10/11/20 13:26 Urine Glucose (UA) Neg mg/dL (Negative) 10/11/20 13:26 Urine Ketones Neg mg/dL (Negative) 10/11/20 13:26 Urine Blood Mod (Negative) 10/11/20 13:26 Urine Nitrite Neg (Negative) 10/11/20 13:26 Urine Bilirubin Neg (Negative) 10/11/20 13:26 Urine Urobilinogen < 2.0 mg/dL (<2.0) 10/11/20 13:26 Ur Leukocyte Esterase Sm (Negative) 10/11/20 13:26 Urine WBC (Auto) 24.0 /HPF (0.0-6.0) H 10/11/20 13:26 Urine RBC (Auto) 59.0 /HPF (0.0-6.0) 10/11/20 13:26 Urine Bacteria (Auto) 1+ /HPF (Negative) 10/11/20 13:26 Urine Mucus Few /HPF 10/11/20 13:26 Random Vancomycin 10.7 ug/mL (0-40.0) 10/16/20 13:09 Phenytoin 5.7 ug/mL (10.0-20.0) L 10/13/20 07:00 C. difficile Tox (PCR) Positive (Negative) 10/16/20 10:22 Coronavirus (PCR) Negative (Negative) 10/08/20 14:15 Blood Type O POSITIVE 10/02/20 12:50 Antibody Screen Negative 10/02/20 12:50 Crossmatch See Detail 10/02/20 12:50 Microbiology: Microbiology 10/15/20 16:55 Peripheral/Venous Blood Culture - Preliminary NO GROWTH AFTER 48 HOURS - Diagnostic Impressions Diagnostic Impressions: Echocardiogram 10/03/20 13:42 Transthoracic Echocardiogram Indication: S/P Cardiac Arrest R/O Cardiomyopathy BP: 133/71 Conclusions *Global left ventricular systolic function is normal. *The estimated ejection fraction is 60-65%. *There is trace of mitral regurgitation. *The right 0heart chambers are both slightly dilated. *There is mild tricuspid regurgitation. *There is mild-moderate pulmonary hypertension. *The right ventricular systolic pressure is calculated at 44 mmHg. *The study quality is technically difficult. Findings Procedure Info: The study quality is technically difficult. The study is technically limited due to patient body habitus. The study was technically limited due to the patient's inability to lay in the left lateral decubitus position. Left Ventricle: The left ventricular chamber size is normal. There is no left ventricular hypertrophy. Global left ventricular systolic function is normal. The estimated ejection fraction is 60-65%. Left Atrium: The left atrial chamber size is normal. Right Ventricle: The right ventricle is slightly dilated. Right Atrium: The right atrium is mildly dilated. Aortic Valve: The aortic valve leaflets are mildly thickened. There is no evidence of aortic regurgitation. There is no evidence of aortic stenosis. Mitral Valve: The mitral valve leaflets are mildly thickened. There is trace of mitral regurgitation. There is no evidence of mitral stenosis. Tricuspid Valve: There is mild tricuspid regurgitation. The right ventricular systolic pressure is calculated at 44 mmHg. There is evidence of mild pulmonary hypertension. Pulmonic Valve: There is trace pulmonic regurgitation. Pericardium: There is no pericardial effusion. Aorta: There is no dilatation of the ascending aorta. There is no dilatation of the aortic root. Venous: The inferior vena cava is dilated. Measurements Chambers 2D Name Value Normal Range IVSd (2D) 1 cm (0.6 - 1.1) LVPWd (2D) 1.01 cm (0.6 - 1.1) LVIDd (2D) 4.58 cm (3.7 - 5.6) LVIDs (2D) 3.17 cm (2 - 3.8) LV FS (2D) 30.93 % - EF Teichholz (2D) 58.66 % - Ao root diameter (2D) 2.94 cm (2 - 3.7) Volumes/Mass Name Value Normal Range LA ESV SP 4CH (A/L) 72.82 ml - LA ESV SP 2CH (A/L) 66.86 ml - LA ESV BP (A/L) 74.49 ml - LA ESV SP 4CH (MOD) 71.03 ml - LA ESV SP 2CH (MOD) 64.3 ml - LV EDV SP 4CH (MOD) 98.82 ml - LV ESV SP 4CH (MOD) 24.8 ml - EF SP 4CH (MOD) 74.9 % - LV EDV SP 2CH (MOD) 86.1 ml - LV ESV SP 2CH (MOD) 36.93 ml - EF SP 2CH (MOD) 57.11 % - LV EDV BP 94.4 ml - LV ESV BP 32.66 ml - BP EF (MOD) 65.4 % - Diastolic/Systolic Function Name Value Normal Range MV E-wave Vmax 1.04 m/sec - MV deceleration time 160.46 msec - MV A-wave Vmax 0.92 m/sec - MV E:A ratio 1.14 ratio - Aortic Valve Name Value Normal Range AV Vmax 2.12 m/sec - AV VTI 22.37 cm - AV peak gradient 17.95 mmHg - AV mean gradient 7.29 mmHg - LVOT diameter 2.01 cm - LVOT Vmax 1.8 m/sec - LVOT VTI 27.17 cm - LVOT peak gradient 12.91 mmHg - LVOT mean gradient 6.83 mmHg - SV LVOT 86.42 ml - ANITA (continuity Vmax) 2.7 cm2 - ANITA (continuity VTI) 3.86 cm2 - Ascending Ao 3.18 cm - Tricuspid Valve Name Value Normal Range TV E-wave Vmax 0.88 m/sec - TR Vmax 3.01 m/sec - TR peak gradient 36.27 mmHg - RAP 8 mmHg - RVSP 44 mmHg - IVC diameter 2.65 cm (1.2 - 2.3) Pulmonic Valve/Qp:Qs Name Value Normal Range PV Vmax 1.22 m/sec - PV peak gradient 5.91 mmHg - RVOT Vmax 0.87 m/sec - RVOT VTI 13.32 cm - RVOT peak gradient 3 mmHg - PV acceleration time 110.37 msec - [place]/IV: Voiding Method Indwelling Catheter IV Catheter Type [Right INT / Saline Lock Antecubital] IV Catheter Type [Right Upper PICC Line arm] IV Catheter Type [Left Triple Lumen Cath Internal Jugular] IV Catheter Type [Left Hand] Peripheral IV IV Catheter Type [Left Peripheral IV Antecubital] Active Medications - Current Medications Current Medications: Generic Name Dose Route Start Last Admin Trade Name Freq PRN Reason Stop Dose Admin Acetaminophen 650 mg 10/05/20 16:34 10/16/20 00:13 Acetaminophen 325 Mg/10.15 Ml Oral Liqd Unit Dose FEEDTUBE 650 mg Q6H PRN Administration Non Cardiac Pain or Temp>100.5 Albuterol/Ipratropium 1 ampul 10/10/20 20:00 10/18/20 01:51 Ipratropium/Albuterol Sulfate 3 Ml Ampul.Neb IH 1 ampul Q8HRT ERINN Administration Lipase/Protease/Amylase 1 each 10/05/20 11:09 Lipase 10,500/Protease 25,000/Amylase 43,750 (Units) Dr Barakat FEEDTUBE PRN PRN For Clogged Feeding Tube Buspirone HCl 10 mg 10/10/20 10:00 10/17/20 21:18 Buspirone 10 Mg Tab PO 10 mg BID ERINN Administration Buspirone HCl 5 mg 10/10/20 10:00 10/17/20 21:18 Buspirone 5 Mg Tab PO 5 mg BID ERINN Administration Famotidine 20 mg 10/07/20 10:00 10/17/20 21:17 Famotidine 20 Mg Tab PO 20 mg BID ERINN Administration Fentanyl 50 mcg 10/10/20 19:54 10/16/20 13:21 Fentanyl 100 Mcg/2 Ml Inj IV 50 mcg Q3HR PRN Administration Labored breathing Furosemide 40 mg 10/17/20 10:00 10/17/20 09:15 Furosemide 40 Mg Tab PO 40 mg QDAY ERINN Administration Hydralazine HCl 20 mg 10/07/20 11:49 10/17/20 07:20 Hydralazine 20 Mg/1 Ml Inj IV 20 mg Q6H PRN Administration SBP >170 Hydralazine HCl 50 mg 10/17/20 09:00 10/18/20 05:02 Hydralazine 25 Mg Tab PO 50 mg Q8HR ERINN Administration Hydrophilic Ointment 1 applic 10/04/20 06:55 Lip Therapy Vaseline TP Q2HR PRN Dry Lips Dexmedetomidine HCl 1,000 mcg/ 260 mls @ 7.249 mls/hr 10/13/20 05:00 10/18/20 05:03 Sodium Chloride IV 1.2 mcg/kg/hr TITRATE ERINN 43.493 mls/hr Administration Protocol 0.2 MCG/KG/HR Dextrose 1,000 mls @ 75 mls/hr 10/13/20 11:00 10/17/20 18:47 D10w IV 75 mls/hr DIRECT ERINN Administration Cefepime HCl 2 gm in 100 mls @ 200 mls/hr 10/14/20 22:00 10/17/20 22:47 Cefepime/Ns 2 Gm/100 Ml IV Infused Q12HR ERINN Infusion Protocol Metronidazole 500 mg in 100 mls @ 100 mls/hr 10/14/20 13:00 10/18/20 05:03 Flagyl 500 Mg/100 Ml IV 100 mls/hr Q8H ERINN Administration Protocol Vancomycin HCl 1,750 mg/ 535 mls @ 333.333 mls/hr 10/15/20 02:00 10/18/20 05:22 Sodium Chloride IV Infused Q12H ERINN Infusion Insulin Human Regular 0 unit 10/12/20 13:00 10/18/20 05:03 Insulin Regular, Human 100 Unit/Ml 3ml Vial SUB-Q Not Given Q4H [facility] Protocol Labetalol HCl 300 mg 10/17/20 09:00 10/17/20 21:16 Labetalol 100 Mg Tab PO 300 mg TID ERINN Administration Lorazepam 2 mg 10/02/20 22:05 10/10/20 16:56 Lorazepam 2 Mg/Ml Vial IV 2 mg Q2H PRN Administration Seizures Multi-Ingred Cream/Lotion/Oil/Oint 1 applic 10/04/20 06:55 Mineral Oil/Petrolatum, White Ophth Oint 3.5 Gm OU Q4HR PRN Dry Eye(s) Simple Syrup 15 ml 10/05/20 11:09 Simple Syrup 15 Ml FEEDTUBE PRN PRN Hypoglycemia Simple Syrup 30 ml 10/05/20 11:09 Simple Syrup 15 Ml FEEDTUBE PRN PRN Hypoglycemia Sodium Bicarbonate 325 mg 10/05/20 11:09 Sodium Bicarbonate 325 Mg Tab FEEDTUBE PRN PRN For Clogged Feeding Tube Sodium Bicarbonate 1,300 mg 10/13/20 14:00 10/17/20 21:16 Sodium Bicarbonate 650 Mg Tab PO 1,300 mg TID ERINN Administration Topiramate 50 mg 10/05/20 11:00 10/17/20 21:18 Topiramate Tab 25 Mg Tab PO 50 mg Q12HR ERINN Administration Vancomycin HCl 125 mg 10/15/20 14:00 10/18/20 01:07 Vancomycin 250 Mg/10 Ml Oral Liqd PO 10/18/20 20:01 125 mg Q6H ERINN Administration Protocol Nutrition/Malnutrition Assess - Dietary Evaluation Nutrition/Malnutrition Findings: Nutrition Notes Start: 10/04/20 11:13 Freq: Status: Active Protocol: Document 10/15/20 08:34 MEY (Rec: 10/15/20 08:39 [email or web address]) Nutrition Notes Initial or Follow up Reassessment Current Diagnosis Acute Kidney Injury, Respiratory Failure Other Pertinent Diagnosis Cardiac arrest, s/p c-sectuion and supracervial hysterectomy Current Diet Vital AF 1.2 at 65ml/hr Labs/Tests Reviewed Pertinent Medications Reviewed Height 5 ft 8 in Weight 118 kg [place] Body Weight (kg) 63.63 BMI 39.5 Weight change and time frame Wt change noted Weight Status Morbidly Obese Subjective/Other Information FU for TF tolerance. Observed TF running at goal rate and per RN pt is tolerating. Percent of energy/protein needs met: 100%/74% Burn Absent Trauma Absent GI Symptoms None Food Allergy Yes Current % PO Negligible Minimum of two criteria No Fluid Accumulation Mild (non-severe) #1 Nutrition Diagnosis Inadequate oral intake Diagnosis Progress(for reassessment Continues documentation) Is patient on ventilator? Yes Is Patient Ambulatory and/or Out of Bed No REE-([facility]-confined to bed) 2327.856 Kcal/Kg value to use for calculation 15 Approximate Energy Requirements Using 1770 kcal/Kg Calculation Used for Recommendations Kcal/kg Additional Notes Protein needs are up to 159g ( up to 2.5g/kg) Fluid needs are 1ml/kcal Nutrition Intervention Change Diet Order: Continue TF Nutrition Support: Vital AF 1.2 at 65 ml/hr. Flush with 100 ml q4h Kcal 1,872 Protein (gm) 117 Fluid (mL) 1,265 Goal #1 Meet at least 75% of energy and protein needs via TF Anticipated Discharge Needs: Unable to determine at this time Follow-Up By: 10/22/20 Additional Comments FU for TF tolerance
[2020-10-18] MEDS: CEFEPIME/NS 2 GM/100 ML 2 GM/100 ML BAG IV SCH ×2 (09:35→21:58)
[2020-10-18] MEDS: FAMOTIDINE 20 MG TAB PO SCH ×2 (09:35→21:56)
[2020-10-18] MEDS: SODIUM BICARBONATE 650 MG TAB PO SCH ×3 (09:36→20:34)
[2020-10-18] MEDS: busPIRone 5 MG TAB PO SCH ×2 (09:37→21:57)
[2020-10-18] MEDS: TOPIRAMATE TAB 25 MG TAB PO SCH ×2 (09:37→21:57)
[2020-10-18] MEDS: busPIRone 10 MG TAB PO SCH ×2 (09:37→21:57)
[2020-10-18] MEDS: FUROSEMIDE 40 MG TAB PO SCH (09:40)
[2020-10-18] MEDS: DEXTROSE 10% IN WATER 1,000 ML IV SCH (10:03)
--- NOTE | 2020-10-18 13:09 | Progress Note ---
Assessment and Plan - Patient Problems (1) Acute respiratory failure with hypoxia Current Visit: Yes Status: Acute Plan to address problem: patient will likely require a shelter care facility (2) Cardiac arrest Current Visit: Yes Status: Acute (3) DIC (disseminated intravascular coagulation) Current Visit: Yes Status: Acute (4) Encephalopathy Current Visit: Yes Status: Acute Subjective - Subjective Date of service: 10/18/20 Principal diagnosis: Eclampsia/HELLP Syndrome, ADOLPH, DIC; s/p , s/p supracervical hyst Interval history: 30y/o POD #15 s/p supracervical hysterectomy for eclampsia and DIC. Patient remains unresponsive. Patient with temp spike of 100.5 around 1999. Currently afebrile. In agreement with the other consultants that her neurological prognosis is poor. Objective - Vital Signs Latest vital signs: Vital Signs Temp Pulse Pulse Pulse Resp Resp BP 10/18/20 13:00 88 21 123/77 10/18/20 12:46 89 24 113/71 10/18/20 12:30 87 16 121/72 10/18/20 12:16 84 19 121/72 10/18/20 12:00 83 20 121/72 10/18/20 11:46 86 28 H 121/72 10/18/20 11:30 87 19 121/72 10/18/20 11:28 82 115/68 10/18/20 11:16 85 24 115/68 10/18/20 11:00 84 18 115/68 10/18/20 10:46 83 24 116/63 10/18/20 10:30 85 25 H 118/71 10/18/20 10:16 88 21 118/71 10/18/20 10:00 93 H 30 H 118/71 10/18/20 09:46 85 22 119/71 10/18/20 09:36 87 119/71 10/18/20 09:30 91 H 22 119/71 10/18/20 09:16 100 H 20 125/71 10/18/20 09:00 99 H 26 H 129/79 10/18/20 08:46 85 22 125/71 10/18/20 08:30 89 20 125/71 10/18/20 08:20 87 23 10/18/20 08:16 86 25 H 124/65 10/18/20 08:00 92 H 16 148/72 10/18/20 07:46 95 H 25 H 148/72 10/18/20 07:30 85 16 162/73 10/18/20 07:16 82 22 162/73 10/18/20 07:00 80 23 182/80 10/18/20 06:45 93 H 25 H 182/80 10/18/20 06:30 92 H 26 H 114/69 10/18/20 06:16 93 H 22 114/69 10/18/20 06:00 91 H 27 H 114/69 10/18/20 05:45 90 23 114/69 10/18/20 05:30 91 H 18 125/77 10/18/20 05:15 87 24 127/79 10/18/20 05:02 83 129/83 10/18/20 05:00 84 17 129/83 10/18/20 04:45 88 17 123/80 10/18/20 04:30 91 H 29 H 130/88 10/18/20 04:23 77 123/82 10/18/20 04:15 89 24 123/82 10/18/20 04:00 81 88 23 126/77 10/18/20 03:45 79 15 126/77 10/18/20 03:30 91 H 19 123/77 10/18/20 03:15 94 H 25 H 131/84 10/18/20 03:00 93 H 19 133/81 10/18/20 02:45 85 22 128/78 10/18/20 02:30 88 23 124/76 10/18/20 02:15 96 H 24 134/84 10/18/20 02:00 92 H 25 H 120/67 10/18/20 01:45 95 H 13 122/75 10/18/20 01:30 95 H 16 120/75 10/18/20 01:26 98.7 F 10/18/20 01:16 81 21 128/63 10/18/20 01:00 85 24 139/82 10/18/20 00:45 75 22 139/84 10/18/20 00:30 73 22 139/82 10/18/20 00:15 77 24 133/83 10/18/20 00:00 95 H 96 H 88 26 H 27 H 122/75 10/17/20 23:45 87 18 133/90 10/17/20 23:30 76 23 139/85 10/17/20 23:15 92 H 16 144/95 10/17/20 23:00 88 22 125/80 10/17/20 22:47 82 134/83 10/17/20 22:45 83 21 134/83 10/17/20 22:30 81 26 H 126/77 10/17/20 22:15 86 18 133/84 10/17/20 22:00 88 21 135/90 10/17/20 21:45 86 21 129/81 10/17/20 21:30 88 20 130/83 10/17/20 21:16 83 132/79 10/17/20 21:15 80 24 132/75 10/17/20 21:00 86 27 H 125/80 10/17/20 20:45 91 H 29 H 142/87 10/17/20 20:30 91 H 27 H 125/80 10/17/20 20:15 87 23 135/79 10/17/20 20:00 100.5 F H 79 88 22 132/78 10/17/20 19:45 87 33 H 131/77 10/17/20 19:30 88 18 130/81 10/17/20 19:15 89 22 131/81 10/17/20 19:00 91 H 29 H 142/90 10/17/20 18:45 84 22 126/75 10/17/20 18:30 83 17 127/77 10/17/20 18:15 82 26 H 127/77 10/17/20 18:00 85 25 H 126/77 10/17/20 17:45 87 20 128/78 10/17/20 17:30 89 29 H 129/76 10/17/20 17:29 91 H 28 H 10/17/20 17:15 90 19 127/79 10/17/20 17:00 83 24 133/76 10/17/20 16:45 88 26 H 123/75 10/17/20 16:38 90 127/78 10/17/20 16:30 89 27 H 127/78 10/17/20 16:15 93 H 28 H 127/85 10/17/20 16:00 99.2 F 90 88 26 H 131/78 10/17/20 15:45 83 24 121/71 10/17/20 15:30 88 23 120/69 10/17/20 15:15 91 H 25 H 120/75 10/17/20 15:00 93 H 20 125/71 10/17/20 14:45 90 29 H 131/62 10/17/20 14:30 89 26 H 131/79 10/17/20 14:15 85 25 H 126/82 10/17/20 14:04 84 123/79 10/17/20 14:00 83 21 123/79 10/17/20 13:45 87 22 126/84 10/17/20 13:30 89 26 H 140/86 10/17/20 13:15 96 H 21 139/103 Pulse Ox 10/18/20 13:00 96 10/18/20 12:46 100 10/18/20 12:30 98 10/18/20 12:16 99 10/18/20 12:00 97 10/18/20 11:46 100 10/18/20 11:30 96 10/18/20 11:28 99 10/18/20 11:16 99 10/18/20 11:00 96 10/18/20 10:46 99 10/18/20 10:30 99 10/18/20 10:16 99 10/18/20 10:00 95 10/18/20 09:46 99 10/18/20 09:36 10/18/20 09:30 96 10/18/20 09:16 100 10/18/20 09:00 96 10/18/20 08:46 99 10/18/20 08:30 97 10/18/20 08:20 10/18/20 08:16 100 10/18/20 08:00 100 10/18/20 07:46 99 10/18/20 07:30 100 10/18/20 07:16 97 10/18/20 07:00 100 10/18/20 06:45 96 10/18/20 06:30 99 10/18/20 06:16 99 10/18/20 06:00 10/18/20 05:45 96 10/18/20 05:30 96 10/18/20 05:15 97 10/18/20 05:02 10/18/20 05:00 97 10/18/20 04:45 96 10/18/20 04:30 97 10/18/20 04:23 100 10/18/20 04:15 96 10/18/20 04:00 100 10/18/20 03:45 97 10/18/20 03:30 97 10/18/20 03:15 97 10/18/20 03:00 97 10/18/20 02:45 96 10/18/20 02:30 96 10/18/20 02:15 96 10/18/20 02:00 96 10/18/20 01:45 96 10/18/20 01:30 96 10/18/20 01:26 10/18/20 01:16 97 10/18/20 01:00 100 10/18/20 00:45 98 10/18/20 00:30 98 10/18/20 00:15 96 10/18/20 00:00 100 10/17/20 23:45 96 10/17/20 23:30 97 10/17/20 23:15 98 10/17/20 23:00 100 10/17/20 22:47 10/17/20 22:45 96 10/17/20 22:30 96 10/17/20 22:15 96 10/17/20 22:00 97 10/17/20 21:45 96 10/17/20 21:30 95 10/17/20 21:16 10/17/20 21:15 98 10/17/20 21:00 100 10/17/20 20:45 97 10/17/20 20:30 98 10/17/20 20:15 97 10/17/20 20:00 97 10/17/20 19:45 96 10/17/20 19:30 96 10/17/20 19:15 97 10/17/20 19:00 97 10/17/20 18:45 97 10/17/20 18:30 100 10/17/20 18:15 96 10/17/20 18:00 95 10/17/20 17:45 96 10/17/20 17:30 96 10/17/20 17:29 10/17/20 17:15 97 10/17/20 17:00 98 10/17/20 16:45 96 10/17/20 16:38 100 10/17/20 16:30 96 10/17/20 16:15 96 10/17/20 16:00 96 10/17/20 15:45 97 10/17/20 15:30 96 10/17/20 15:15 96 10/17/20 15:00 96 10/17/20 14:45 96 10/17/20 14:30 96 10/17/20 14:15 97 10/17/20 14:04 10/17/20 14:00 96 10/17/20 13:45 95 10/17/20 13:30 96 10/17/20 13:15 97 Intake and Output 10/17/20 10/18/20 10/18/20 22:59 06:59 14:59 Intake Total 2168.487 2285 1715 Output Total 1200 2830 575 Balance 968.487 -545 1140 Intake: IV 3208.287 2210 1260 CEFEPIME/NS 2 GM/100 ML 2 100 gm In 100 ml @ 200 mls/ hr IV Q12HR ERINN Rx#: [id number] D10w 1,000 ml @ 75 mls/hr 1000 1000 IV DIRECT ERINN Rx#: [id number] FLAGYL 500 MG/100 ML 500 100 100 mg In 100 ml @ 100 mls/hr IV Q8H ERINN Rx#:[id number] Right Antecubital 10 Vancomycin 1,750 mg In 1070 NaCl 0.9% 500 ml 500 ml @ 333.333 mls/hr IV Q12H ERINN Rx#:[id number] dexmedeTOMIDine 1,000 MCG 238.487 260 260 In NaCl 0.9% 250Ml 250 ml @ 0.2 MCG/KG/HR 7.249 mls/hr IV TITRATE ERINN Rx# :[id number] Intake, Free Water 200 400 Tube Feeding 520 455 455 Output: Urine 1200 2800 575 Indwelling Catheter 1200 2800 575 Stool 30 Other: Total, Intake Amount 65 65 65 Total, Output Amount 30 30 175 Voiding Method Indwelling Catheter Indwelling Catheter Weight 118.3 kg - Exam Incision: Present: intact - Labs Labs: Abnormal lab results 10/17/20 10/18/20 10/18/20 Range/Units 21:16 01:31 05:45 POC Glucose 106 H 119 H 106 H (70-105) mg/dL 10/18/20 Range/Units 11:23 POC Glucose 115 H (70-105) mg/dL
--- NOTE | 2020-10-18 13:40 | Progress Note ---
Assessment and Plan 30 y/o female with Eclampsia, s/p emergent section with DIC, acute respiratory failure and worsening renal function. 10/18/20: Blood pressure is much better with the addition of meds started on yesterday. Need to have family meeting jesica in regards to goals of care. Continue Daily PSV trials but not ready for extubation. Continue therapy for C. Diff per ID. 10/17/20: CT scan was of no help in regards to fevers. C. Diff is positive and BP now is more uncontrolled despite increasing labetalol. Today will increase to 300 TID. Added TID Hydralazine and added PO lasix given her mild pulmonary htn seen on echo. Spoke with mother over the phone and she requests to come see the patient. Given current circumstances, will allow her to come briefly today and then will speak with her at the bedside. No neurology is available at the time and suspect these will be the majority of her questions. Tolerated PSV briefly yesterday and will do again today but not for extended periods as given her mental state she is not a candidate for extubation. I will also ask the mother about [employer] care (trach and peg) when she comes today. Overall prognosis is guarded to poor. If oral meds cannot regulate blood pressure, may need Cardene drip. Continue therapy for C. Diff per ID. 10/16/20: Needs a different consent for CT of abdomen and pelvis. I have signed the one in the chart. The nurse who obtained the first consent did obtain consent for contrast, it just wasn't listed on the that consent. Await neurology input on EEG vs MRI findings. Patient has now been intubated 14 days. Need to have family meeting to discuss goals of care but I suspect family will want to hear from Neurology as well. Tolerating PSV trials but will only do briefly as patient is not a candidate for extubation today. Will increase labetalol to 200 TID based on MRI report. Overall prognosis is guarded to poor. 10/15/2020: MRI and CT's today. Continue Precedex and PRN fent pushes. ID ordered C. Diff test. Continue D10 and tube feeds. Continue vent support. Suspect patient will need trach and peg. 10/14/2020: Await MRI. Continue Precedex and only use PRN fent pushes. CM states that there is a . Now with persistent fever, will obtain CT abdomen pelvis with contrast to see if source for fevers can be found. Continue D10 as sugars are still not elevated. 10/12/2020: Patient seen on 10/12 but note entered late. Formal neurology consult today. Hold all sedation if possible and only use precedex. CM to find out if there is truly a or if the decisions would fall on mother as I do not know the ages of her children but I don't think they are of age to make decisions. Guarded prognosis given mental state. 10/08/2020: Will start patient on precedex today. Plan is to wean off fent drip. Will increase buspar to BID. Need to see patient on as little sedation as possible to determine neurological status. EEG has still not been read. Mag stopped yesterday. Largest concern now is neurologic function. 10/07/2020: Head CT unremarkable. Await EEG to be read. Will stop mag Drip. If seizures occur then will load with Keppra and start BID dosing of this. Appreciate OB note. Continue D10 as sugars are still not severely elevated until feeds are at goal. PRN ativan present as well. Will add dilaudid for pain control. Increased BB to TID and added PRN hydralazine 10/06/2020: Stat Head CT today. Likely needs EEG. Will order. Continue Mag drip and follow up levels. Continue feeds. Continue to wean FiO2 as tolerated. Hold sedatives but can give PRN ativan as needed for seizure activity. Continue D10 as Tube feeds are not at goal yet. Guarded prognosis with mental state. 10/05/2020: Feed today. Stop Albumin and Abx. Will stop D10 once feeds start but will continue q2 hour FSBS until 3 consecutive >180. H/H stable. Will continue to aggressively wean FiO2. Patient has a 6.5 tube that will likely impede PSV trials given her size so will attempt to change out. Also will restart her home meds for anxiety and chronic migraine therapy. Prognosis is still guarded but promising given her hemodynamic stability. Continue chowdhury for accurate urine out put. 10/04/2020: Much improved today. Still very ill however. Down to just one pressor. Still with good urine output. Await chemistry results from this am. Likely can stop Bicarb drip given improvement in pH but would like to see bicarb on blood work. Agree with continued transfusion of blood products. Needs fibrinongen levels as well as repeat coags. I cannot see the standing orders on my screen so will call down to lab and let them know what's needed. I know she has had at leas 2 cryo's but I am not exactly sure if the count is accurate in the computer in regards to PRBC's and FFP's. Platelets lower this am but still greater than 30K. Continue chowdhury for I/O measurement. Will start to wean FiO2 on vent. CXR looks like edema but oxygenation is stable right now. Resus citation is the most important thing right now. Will continue abx therapy at least 24 more hours. Prognosis is still very guarded but patient showing signs of improvement. 1. CV-Extremely volume deplete as well as intrasvascular depletion. Will continue to bolus with LR and saline as needed. Will add Albumin to help with intravascular volume. Spoke with OB attending over phone yesterday. No acute indication for steroids at this time. Serial H/H's given maximum pressor requirements. Will transfuse to keep up with AVINASH drain and help with weaning. Severely acidotic but improving. Likely adding to pressor requirement. GOAL is map of 65 and will wean accordingly. Will start to wean Sohail first. Ordered art line as well. 2. Heme-DIC secondary to Eclampsia, possible sepsis but white count could be stress related. Will continue to transfuse PRBC's and FFP with Cryo as needed. Follow Fibrinogen levels. Tele Heme has been consulted and note reviewed. Will give one cryo for every 6 units of PRBC's transfused. has gotten one cryo, awaiting the other to thaw out. Plts at 72K right now. Hold on further transfusion. May need to consider Factor VII if execessive bleeding continues. Will also put on broad spec abx therapy incase of possible sepsis causing DIC. Hopeful with correction of coaguloapthy she will improve. 3. Very very guarded prognosis. Will continue aggressive resuscitation. Family to come visit given exceptional case and extremely guarded prognosis. CCT 31 minutes. Subjective Date of service: 10/18/20 Principal diagnosis: Eclampsia/HELLP Syndrome, ADOLPH, DIC; s/p , s/p supracervical hyst Interval history: No acute events. Mental status is still the same. Still spiking temps. BP stable, Vent is stable. Objective Vital Signs - 12hr 10/18/20 10/18/20 10/18/20 01:45 02:00 02:15 Pulse Rate 95 H 92 H 96 H Pulse Rate [ Anterior Bilateral Throughout] Pulse Rate [ From Monitor] Respiratory 13 25 H 24 Rate Respiratory Rate [Anterior Bilateral Throughout] Blood Pressure 122/75 120/67 134/84 O2 Sat by Pulse 96 96 96 Oximetry 10/18/20 10/18/20 10/18/20 02:30 02:45 03:00 Pulse Rate 88 85 93 H Pulse Rate [ Anterior Bilateral Throughout] Pulse Rate [ From Monitor] Respiratory 23 22 19 Rate Respiratory Rate [Anterior Bilateral Throughout] Blood Pressure 124/76 128/78 133/81 O2 Sat by Pulse 96 96 97 Oximetry 10/18/20 10/18/20 10/18/20 03:15 03:30 03:45 Pulse Rate 94 H 91 H 79 Pulse Rate [ Anterior Bilateral Throughout] Pulse Rate [ From Monitor] Respiratory 25 H 19 15 Rate Respiratory Rate [Anterior Bilateral Throughout] Blood Pressure 131/84 123/77 126/77 O2 Sat by Pulse 97 97 97 Oximetry 10/18/20 10/18/20 10/18/20 04:00 04:15 04:23 Pulse Rate 81 89 77 Pulse Rate [ Anterior Bilateral Throughout] Pulse Rate [ 88 From Monitor] Respiratory 23 24 Rate Respiratory Rate [Anterior Bilateral Throughout] Blood Pressure 126/77 123/82 123/82 O2 Sat by Pulse 100 96 100 Oximetry 10/18/20 10/18/20 10/18/20 04:30 04:45 05:00 Pulse Rate 91 H 88 84 Pulse Rate [ Anterior Bilateral Throughout] Pulse Rate [ From Monitor] Respiratory 29 H 17 17 Rate Respiratory Rate [Anterior Bilateral Throughout] Blood Pressure 130/88 123/80 129/83 O2 Sat by Pulse 97 96 97 Oximetry 10/18/20 10/18/20 10/18/20 05:02 05:15 05:30 Pulse Rate 83 87 91 H Pulse Rate [ Anterior Bilateral Throughout] Pulse Rate [ From Monitor] Respiratory 24 18 Rate Respiratory Rate [Anterior Bilateral Throughout] Blood Pressure 129/83 127/79 125/77 O2 Sat by Pulse 97 96 Oximetry 10/18/20 10/18/20 10/18/20 05:45 06:00 06:16 Pulse Rate 90 91 H 93 H Pulse Rate [ Anterior Bilateral Throughout] Pulse Rate [ From Monitor] Respiratory 23 27 H 22 Rate Respiratory Rate [Anterior Bilateral Throughout] Blood Pressure 114/69 114/69 114/69 O2 Sat by Pulse 96 99 Oximetry 10/18/20 10/18/20 10/18/20 06:30 06:45 07:00 Pulse Rate 92 H 93 H 80 Pulse Rate [ Anterior Bilateral Throughout] Pulse Rate [ From Monitor] Respiratory 26 H 25 H 23 Rate Respiratory Rate [Anterior Bilateral Throughout] Blood Pressure 114/69 182/80 182/80 O2 Sat by Pulse 99 96 100 Oximetry 10/18/20 10/18/20 10/18/20 07:16 07:30 07:46 Pulse Rate 82 85 95 H Pulse Rate [ Anterior Bilateral Throughout] Pulse Rate [ From Monitor] Respiratory 22 16 25 H Rate Respiratory Rate [Anterior Bilateral Throughout] Blood Pressure 162/73 162/73 148/72 O2 Sat by Pulse 97 100 99 Oximetry 10/18/20 10/18/20 10/18/20 08:00 08:16 08:20 Pulse Rate 92 H 86 Pulse Rate [ 87 Anterior Bilateral Throughout] Pulse Rate [ From Monitor] Respiratory 16 25 H Rate Respiratory 23 Rate [Anterior Bilateral Throughout] Blood Pressure 148/72 124/65 O2 Sat by Pulse 100 100 Oximetry 10/18/20 10/18/20 10/18/20 08:30 08:46 09:00 Pulse Rate 89 85 99 H Pulse Rate [ Anterior Bilateral Throughout] Pulse Rate [ From Monitor] Respiratory 20 22 26 H Rate Respiratory Rate [Anterior Bilateral Throughout] Blood Pressure 125/71 125/71 129/79 O2 Sat by Pulse 97 99 96 Oximetry 10/18/20 10/18/20 10/18/20 09:16 09:30 09:36 Pulse Rate 100 H 91 H 87 Pulse Rate [ Anterior Bilateral Throughout] Pulse Rate [ From Monitor] Respiratory 20 22 Rate Respiratory Rate [Anterior Bilateral Throughout] Blood Pressure 125/71 119/71 119/71 O2 Sat by Pulse 100 96 Oximetry 10/18/20 10/18/20 10/18/20 09:46 10:00 10:16 Pulse Rate 85 93 H 88 Pulse Rate [ Anterior Bilateral Throughout] Pulse Rate [ From Monitor] Respiratory 22 30 H 21 Rate Respiratory Rate [Anterior Bilateral Throughout] Blood Pressure 119/71 118/71 118/71 O2 Sat by Pulse 99 95 99 Oximetry 10/18/20 10/18/20 10/18/20 10:30 10:46 11:00 Pulse Rate 85 83 84 Pulse Rate [ Anterior Bilateral Throughout] Pulse Rate [ From Monitor] Respiratory 25 H 24 18 Rate Respiratory Rate [Anterior Bilateral Throughout] Blood Pressure 118/71 116/63 115/68 O2 Sat by Pulse 99 99 96 Oximetry 10/18/20 10/18/20 10/18/20 11:16 11:28 11:30 Pulse Rate 85 82 87 Pulse Rate [ Anterior Bilateral Throughout] Pulse Rate [ From Monitor] Respiratory 24 19 Rate Respiratory Rate [Anterior Bilateral Throughout] Blood Pressure 115/68 115/68 121/72 O2 Sat by Pulse 99 99 96 Oximetry 10/18/20 10/18/20 10/18/20 11:46 12:00 12:16 Pulse Rate 86 83 84 Pulse Rate [ Anterior Bilateral Throughout] Pulse Rate [ From Monitor] Respiratory 28 H 20 19 Rate Respiratory Rate [Anterior Bilateral Throughout] Blood Pressure 121/72 121/72 121/72 O2 Sat by Pulse 100 97 99 Oximetry 10/18/20 10/18/20 10/18/20 12:30 12:46 13:00 Pulse Rate 87 89 88 Pulse Rate [ Anterior Bilateral Throughout] Pulse Rate [ From Monitor] Respiratory 16 24 21 Rate Respiratory Rate [Anterior Bilateral Throughout] Blood Pressure 121/72 113/71 123/77 O2 Sat by Pulse 98 100 96 Oximetry Constitutional: comatose, other (critically ill on ventilator) Eyes: non-icteric ENT: oropharynx moist, other (orally intubated and not sedated) Neck: other (large in cirumference) Effort: normal Ascultation: Bilateral: clear, diminished breath sounds, other (coarse BS bilaterally w/ mild faint wheezes) Percussion: Bilateral: not dull Cardiovascular: regular rate and rhythm, other (no mrg) Gastrointestinal: normoactive bowel sounds, soft, other (post surgical changes with drain on the left side) Extremities: no cyanosis, pink and warm, anasarca Neurologic: other (unresponsive, not following commands, not tracking) Psychiatric: other (unable to assess) CBC and BMP: 10/17/20 04:57 10/15/20 05:50 ABG, PT/INR, D-dimer: ABG ABG pH 7.473 (7.320-7.450) H 10/13/20 07:18 POC ABG pCO2 20.7 mmHg (32.0-48.0) L 10/13/20 07:18 ABG pCO2 25.0 mm Hg 10/10/20 04:42 POC ABG pO2 137.9 mmHg (83-108) H 10/13/20 07:18 ABG pO2 95.2 mm Hg (80.0-90.0) H 10/10/20 04:42 POC ABG HCO3 14.8 10/13/20 07:18 ABG O2 Saturation 97.9 % (95.0-99.0) 10/10/20 04:42 PT/INR, D-dimer PT 13.0 Sec. (12.2-14.9) 10/05/20 05:00 INR 1.00 (0.87-1.13) 10/05/20 05:00 D-Dimer > 44773 ng/mlDDU (0-234) H 10/04/20 10:00 Abnormal lab findings: Abnormal Labs 10/02/20 10/02/20 10/02/20 12:03 12:18 12:18 WBC 14.9 H RBC Hgb 9.1 L Hct MCV MCH 22 L MCHC 28 L RDW 17.6 H Plt Count 102 L Lymph % (Auto) [place] % (Auto) Lymph # (Auto) [place] # (Auto) Seg Neutrophils % Seg Neuts % (Manual) 36.0 L Lymphocytes % (Manual) 49.0 H Monocytes % (Manual) Nucleated RBC % 6.0 H Seg Neutrophils # Seg Neutrophils # Man Lymphocytes # (Manual) 7.3 H Monocytes # (Manual) PT INR APTT Fibrinogen D-Dimer ABG pH POC ABG pCO2 POC ABG pO2 ABG pO2 ABG HCO3 ABG Base Excess ABG Hemoglobin ABG Oxyhemoglobin ABG Sodium ABG Potassium ABG Chloride ABG Glucose VBG pH Oxyhemoglobin Carboxyhemoglobin Sodium 134 L Potassium Chloride Carbon Dioxide 12 L BUN 6 L Creatinine Glucose 390 H POC Glucose 451 H Lactic Acid Calcium Ionized Calcium Magnesium AST 135 H ALT 85 H Alkaline Phosphatase 172 H Lactate Dehydrogenase 641 H NT-Pro-B Natriuret Pep Total Protein 5.4 L Albumin 2.3 L Arterial Blood Glucose Arterial Blood Ionized Calcium Urine WBC (Auto) Phenytoin Crossmatch 10/02/20 10/02/20 10/02/20 12:50 13:05 13:05 WBC 38.6 H RBC Hgb 8.9 L Hct 29.0 L MCV 73 L MCH 22 L MCHC RDW 17.2 H Plt Count Lymph % (Auto) [place] % (Auto) Lymph # (Auto) [place] # (Auto) Seg Neutrophils % Seg Neuts % (Manual) Lymphocytes % (Manual) Monocytes % (Manual) Nucleated RBC % 2.0 H Seg Neutrophils # Seg Neutrophils # Man 20.1 H Lymphocytes # (Manual) 10.4 H Monocytes # (Manual) 2.3 H PT INR APTT Fibrinogen D-Dimer ABG pH POC ABG pCO2 POC ABG pO2 ABG pO2 ABG HCO3 ABG Base Excess ABG Hemoglobin ABG Oxyhemoglobin ABG Sodium ABG Potassium ABG Chloride ABG Glucose VBG pH Oxyhemoglobin Carboxyhemoglobin Sodium Potassium Chloride Carbon Dioxide BUN Creatinine Glucose POC Glucose Lactic Acid Calcium Ionized Calcium Magnesium AST 184 H ALT 113 H Alkaline Phosphatase Lactate Dehydrogenase 769 H NT-Pro-B Natriuret Pep Total Protein Albumin Arterial Blood Glucose Arterial Blood Ionized Calcium Urine WBC (Auto) Phenytoin Crossmatch See Detail 10/02/20 10/02/20 10/02/20 16:25 16:35 16:35 WBC RBC Hgb Hct MCV MCH MCHC RDW Plt Count Lymph % (Auto) [place] % (Auto) Lymph # (Auto) [place] # (Auto) Seg Neutrophils % Seg Neuts % (Manual) Lymphocytes % (Manual) Monocytes % (Manual) Nucleated RBC % Seg Neutrophils # Seg Neutrophils # Man Lymphocytes # (Manual) Monocytes # (Manual) PT INR APTT Fibrinogen D-Dimer ABG pH 7.031 L* POC ABG pCO2 POC ABG pO2 ABG pO2 116.8 H ABG HCO3 12.7 L ABG Base Excess -16.9 L ABG Hemoglobin 7.8 L ABG Oxyhemoglobin ABG Sodium ABG Potassium ABG Chloride ABG Glucose VBG pH Oxyhemoglobin 94.9 L Carboxyhemoglobin Sodium Potassium Chloride Carbon Dioxide BUN Creatinine Glucose 403 H POC Glucose Lactic Acid 11.40 H* Calcium 6.3 L D Ionized Calcium Magnesium AST 70 H ALT Alkaline Phosphatase Lactate Dehydrogenase NT-Pro-B Natriuret Pep Total Protein 1.9 L D Albumin 1.2 L Arterial Blood Glucose Arterial Blood Ionized Calcium Urine WBC (Auto) Phenytoin Crossmatch 10/02/20 10/02/20 10/02/20 18:18 18:18 22:30 WBC 11.5 H RBC 2.06 L Hgb 5.5 L* D Hct 17.3 L* D MCV MCH 27 L MCHC RDW 19.5 H Plt Count 60 L Lymph % (Auto) [place] % (Auto) Lymph # (Auto) [place] # (Auto) Seg Neutrophils % Seg Neuts % (Manual) Lymphocytes % (Manual) 8.0 L Monocytes % (Manual) 8.0 H Nucleated RBC % 8.0 H Seg Neutrophils # Seg Neutrophils # Man Lymphocytes # (Manual) 0.9 L Monocytes # (Manual) 0.9 H PT 37.1 H INR 3.71 H APTT 135.8 H* Fibrinogen D-Dimer ABG pH 7.067 L* POC ABG pCO2 POC ABG pO2 ABG pO2 183.0 H ABG HCO3 14.1 L ABG Base Excess -15.1 L ABG Hemoglobin 7.7 L ABG Oxyhemoglobin ABG Sodium ABG Potassium ABG Chloride ABG Glucose VBG pH Oxyhemoglobin Carboxyhemoglobin Sodium Potassium Chloride Carbon Dioxide BUN Creatinine Glucose POC Glucose Lactic Acid Calcium Ionized Calcium Magnesium AST ALT Alkaline Phosphatase Lactate Dehydrogenase NT-Pro-B Natriuret Pep Total Protein Albumin Arterial Blood Glucose Arterial Blood Ionized Calcium Urine WBC (Auto) Phenytoin Crossmatch 10/02/20 10/02/20 10/03/20 Unknown Unknown 00:01 WBC RBC Hgb Hct MCV MCH MCHC RDW Plt Count Lymph % (Auto) [place] % (Auto) Lymph # (Auto) [place] # (Auto) Seg Neutrophils % Seg Neuts % (Manual) Lymphocytes % (Manual) Monocytes % (Manual) Nucleated RBC % Seg Neutrophils # Seg Neutrophils # Man Lymphocytes # (Manual) Monocytes # (Manual) PT 61.1 H INR 6.92 H* APTT 158.7 H* Fibrinogen < 60 L* D-Dimer > 88889 H ABG pH POC ABG pCO2 POC ABG pO2 ABG pO2 ABG HCO3 ABG Base Excess ABG Hemoglobin ABG Oxyhemoglobin ABG Sodium ABG Potassium ABG Chloride ABG Glucose VBG pH 6.949 L* Oxyhemoglobin Carboxyhemoglobin Sodium Potassium Chloride Carbon Dioxide BUN Creatinine Glucose POC Glucose 196 H Lactic Acid Calcium Ionized Calcium Magnesium AST ALT Alkaline Phosphatase Lactate Dehydrogenase NT-Pro-B Natriuret Pep Total Protein Albumin Arterial Blood Glucose Arterial Blood Ionized Calcium Urine WBC (Auto) Phenytoin Crossmatch 10/03/20 10/03/20 10/03/20 00:40 00:40 00:40 WBC RBC Hgb Hct MCV MCH MCHC RDW Plt Count Lymph % (Auto) [place] % (Auto) Lymph # (Auto) [place] # (Auto) Seg Neutrophils % Seg Neuts % (Manual) Lymphocytes % (Manual) Monocytes % (Manual) Nucleated RBC % Seg Neutrophils # Seg Neutrophils # Man Lymphocytes # (Manual) Monocytes # (Manual) PT 15.1 H INR 1.21 H APTT Fibrinogen D-Dimer ABG pH POC ABG pCO2 POC ABG pO2 ABG pO2 ABG HCO3 ABG Base Excess ABG Hemoglobin ABG Oxyhemoglobin ABG Sodium ABG Potassium ABG Chloride ABG Glucose VBG pH Oxyhemoglobin Carboxyhemoglobin Sodium 136 L Potassium Chloride Carbon Dioxide BUN Creatinine 1.6 H D Glucose 106 H POC Glucose Lactic Acid 5.60 H* Calcium 6.5 L Ionized Calcium Magnesium AST 232 H ALT 104 H Alkaline Phosphatase Lactate Dehydrogenase NT-Pro-B Natriuret Pep Total Protein 3.9 L D Albumin 2.4 L Arterial Blood Glucose Arterial Blood Ionized Calcium Urine WBC (Auto) Phenytoin Crossmatch 10/03/20 10/03/20 10/03/20 02:08 02:08 02:08 WBC 17.6 H RBC 3.27 L Hgb 9.9 L D Hct 29.9 L D MCV MCH MCHC RDW 16.5 H Plt Count 75 L Lymph % (Auto) [place] % (Auto) Lymph # (Auto) [place] # (Auto) Seg Neutrophils % Seg Neuts % (Manual) 76.0 H Lymphocytes % (Manual) Monocytes % (Manual) Nucleated RBC % 8.0 H Seg Neutrophils # Seg Neutrophils # Man 13.4 H Lymphocytes # (Manual) Monocytes # (Manual) PT INR APTT Fibrinogen D-Dimer ABG pH POC ABG pCO2 POC ABG pO2 ABG pO2 ABG HCO3 ABG Base Excess ABG Hemoglobin ABG Oxyhemoglobin ABG Sodium ABG Potassium ABG Chloride ABG Glucose VBG pH Oxyhemoglobin Carboxyhemoglobin Sodium Potassium Chloride Carbon Dioxide 19 L BUN Creatinine 1.4 H Glucose 306 H POC Glucose Lactic Acid 10.50 H* Calcium 6.4 L Ionized Calcium Magnesium AST ALT Alkaline Phosphatase Lactate Dehydrogenase NT-Pro-B Natriuret Pep Total Protein Albumin Arterial Blood Glucose Arterial Blood Ionized Calcium Urine WBC (Auto) Phenytoin Crossmatch 12/19/20 12/19/20 12/19/20 02:42 03:59 05:31 WBC RBC Hgb Hct MCV MCH MCHC RDW Plt Count Lymph % (Auto) [place] % (Auto) Lymph # (Auto) [place] # (Auto) Seg Neutrophils % Seg Neuts % (Manual) Lymphocytes % (Manual) Monocytes % (Manual) Nucleated RBC % Seg Neutrophils # Seg Neutrophils # Man Lymphocytes # (Manual) Monocytes # (Manual) PT INR APTT Fibrinogen D-Dimer ABG pH 7.144 L POC ABG pCO2 54.4 H POC ABG pO2 ABG pO2 ABG HCO3 ABG Base Excess ABG Hemoglobin 10.0 L ABG Oxyhemoglobin ABG Sodium ABG Potassium ABG Chloride 108.0 H ABG Glucose 306 H VBG pH Oxyhemoglobin Carboxyhemoglobin Sodium Potassium Chloride Carbon Dioxide BUN Creatinine Glucose POC Glucose 209 H Lactic Acid 9.20 H* Calcium Ionized Calcium Magnesium AST ALT Alkaline Phosphatase Lactate Dehydrogenase NT-Pro-B Natriuret Pep Total Protein Albumin Arterial Blood Glucose 306 H Arterial Blood Ionized Calcium 3.7 L Urine WBC (Auto) Phenytoin Crossmatch 10/03/20 10/03/20 10/03/20 09:00 09:00 09:00 WBC 27.4 H RBC 2.84 L Hgb 8.5 L Hct 25.1 L MCV MCH MCHC RDW 16.1 H Plt Count 72 L Lymph % (Auto) [place] % (Auto) Lymph # (Auto) [place] # (Auto) Seg Neutrophils % Seg Neuts % (Manual) Lymphocytes % (Manual) 11.0 L Monocytes % (Manual) Nucleated RBC % 3.0 H Seg Neutrophils # Seg Neutrophils # Man 18.4 H Lymphocytes # (Manual) Monocytes # (Manual) 1.9 H PT INR APTT Fibrinogen D-Dimer ABG pH POC ABG pCO2 POC ABG pO2 ABG pO2 ABG HCO3 ABG Base Excess ABG Hemoglobin ABG Oxyhemoglobin ABG Sodium ABG Potassium ABG Chloride ABG Glucose VBG pH Oxyhemoglobin Carboxyhemoglobin Sodium Potassium Chloride Carbon Dioxide BUN Creatinine 1.7 H Glucose 216 H POC Glucose Lactic Acid 9.20 H* Calcium 6.3 L Ionized Calcium Magnesium AST 331 H ALT 171 H Alkaline Phosphatase Lactate Dehydrogenase NT-Pro-B Natriuret Pep Total Protein 3.7 L Albumin 1.9 L Arterial Blood Glucose Arterial Blood Ionized Calcium Urine WBC (Auto) Phenytoin Crossmatch 10/03/20 10/03/20 10/03/20 11:20 11:46 11:50 WBC 28.7 H RBC 2.67 L Hgb 8.0 L Hct 23.7 L MCV MCH MCHC RDW 16.6 H Plt Count 76 L Lymph % (Auto) [place] % (Auto) Lymph # (Auto) [place] # (Auto) Seg Neutrophils % Seg Neuts % (Manual) Lymphocytes % (Manual) Monocytes % (Manual) Nucleated RBC % Seg Neutrophils # Seg Neutrophils # Man Lymphocytes # (Manual) Monocytes # (Manual) PT INR APTT Fibrinogen D-Dimer ABG pH POC ABG pCO2 POC ABG pO2 ABG pO2 ABG HCO3 ABG Base Excess ABG Hemoglobin ABG Oxyhemoglobin ABG Sodium ABG Potassium ABG Chloride ABG Glucose VBG pH Oxyhemoglobin Carboxyhemoglobin Sodium Potassium Chloride Carbon Dioxide BUN Creatinine Glucose POC Glucose 125 H Lactic Acid 8.00 H* Calcium Ionized Calcium Magnesium AST ALT Alkaline Phosphatase Lactate Dehydrogenase NT-Pro-B Natriuret Pep Total Protein Albumin Arterial Blood Glucose Arterial Blood Ionized Calcium Urine WBC (Auto) Phenytoin Crossmatch 10/03/20 10/04/20 10/04/20 11:50 00:40 00:40 WBC RBC Hgb 6.8 L Hct 19.4 L* MCV MCH MCHC RDW Plt Count 49 L Lymph % (Auto) [place] % (Auto) Lymph # (Auto) [place] # (Auto) Seg Neutrophils % Seg Neuts % (Manual) Lymphocytes % (Manual) Monocytes % (Manual) Nucleated RBC % Seg Neutrophils # Seg Neutrophils # Man Lymphocytes # (Manual) Monocytes # (Manual) PT INR APTT Fibrinogen D-Dimer ABG pH 7.244 L POC ABG pCO2 POC ABG pO2 ABG pO2 ABG HCO3 ABG Base Excess -4.5 L ABG Hemoglobin 7.3 L ABG Oxyhemoglobin ABG Sodium ABG Potassium ABG Chloride ABG Glucose VBG pH Oxyhemoglobin Carboxyhemoglobin Sodium Potassium Chloride Carbon Dioxide BUN Creatinine Glucose POC Glucose Lactic Acid Calcium Ionized Calcium Magnesium AST ALT Alkaline Phosphatase Lactate Dehydrogenase NT-Pro-B Natriuret Pep Total Protein Albumin Arterial Blood Glucose Arterial Blood Ionized Calcium Urine WBC (Auto) Phenytoin Crossmatch 10/04/20 10/04/20 10/04/20 03:53 10:00 10:00 WBC 14.6 H RBC 2.57 L Hgb 7.6 L Hct 22.5 L MCV MCH MCHC RDW 15.8 H Plt Count 38 L Lymph % (Auto) 7.7 L [place] % (Auto) Lymph # (Auto) 1.1 L [place] # (Auto) 0.9 H Seg Neutrophils % 85.6 H Seg Neuts % (Manual) Lymphocytes % (Manual) Monocytes % (Manual) Nucleated RBC % Seg Neutrophils # 12.5 H Seg Neutrophils # Man Lymphocytes # (Manual) Monocytes # (Manual) PT INR APTT Fibrinogen D-Dimer ABG pH POC ABG pCO2 POC ABG pO2 110.6 H ABG pO2 ABG HCO3 ABG Base Excess ABG Hemoglobin 6.7 L ABG Oxyhemoglobin ABG Sodium 132.0 L ABG Potassium ABG Chloride ABG Glucose 111 H VBG pH Oxyhemoglobin Carboxyhemoglobin Sodium 134 L D Potassium Chloride 97.6 L Carbon Dioxide BUN Creatinine 1.7 H Glucose POC Glucose Lactic Acid Calcium 6.3 L Ionized Calcium Magnesium AST 203 H ALT 81 H Alkaline Phosphatase Lactate Dehydrogenase NT-Pro-B Natriuret Pep Total Protein 3.9 L Albumin 2.3 L Arterial Blood Glucose 111 H Arterial Blood Ionized Calcium 3.5 L Urine WBC (Auto) Phenytoin Crossmatch 10/04/20 10/04/20 10/04/20 10:00 10:00 10:14 WBC RBC Hgb Hct MCV MCH MCHC RDW Plt Count Lymph % (Auto) [place] % (Auto) Lymph # (Auto) [place] # (Auto) Seg Neutrophils % Seg Neuts % (Manual) Lymphocytes % (Manual) Monocytes % (Manual) Nucleated RBC % Seg Neutrophils # Seg Neutrophils # Man Lymphocytes # (Manual) Monocytes # (Manual) PT INR APTT Fibrinogen D-Dimer > 86944 H ABG pH POC ABG pCO2 POC ABG pO2 ABG pO2 ABG HCO3 ABG Base Excess ABG Hemoglobin ABG Oxyhemoglobin ABG Sodium ABG Potassium ABG Chloride ABG Glucose VBG pH Oxyhemoglobin Carboxyhemoglobin Sodium Potassium Chloride Carbon Dioxide BUN Creatinine Glucose POC Glucose Lactic Acid 3.90 H* Calcium Ionized Calcium Magnesium AST ALT Alkaline Phosphatase Lactate Dehydrogenase NT-Pro-B Natriuret Pep 2788 H Total Protein Albumin Arterial Blood Glucose Arterial Blood Ionized Calcium Urine WBC (Auto) Phenytoin Crossmatch 10/04/20 10/04/20 10/04/20 14:00 14:00 18:00 WBC 15.7 H RBC 3.17 L Hgb 9.3 L 9.6 L Hct 27.2 L 28.0 L MCV MCH MCHC RDW 16.9 H Plt Count 41 L Lymph % (Auto) 8.6 L [place] % (Auto) Lymph # (Auto) [place] # (Auto) 0.9 H Seg Neutrophils % 85.4 H Seg Neuts % (Manual) Lymphocytes % (Manual) Monocytes % (Manual) Nucleated RBC % Seg Neutrophils # 13.4 H Seg Neutrophils # Man Lymphocytes # (Manual) Monocytes # (Manual) PT INR APTT Fibrinogen D-Dimer ABG pH POC ABG pCO2 POC ABG pO2 ABG pO2 ABG HCO3 ABG Base Excess ABG Hemoglobin ABG Oxyhemoglobin ABG Sodium ABG Potassium ABG Chloride ABG Glucose VBG pH Oxyhemoglobin Carboxyhemoglobin Sodium 133 L Potassium Chloride 96.4 L Carbon Dioxide BUN 18 H Creatinine 1.7 H Glucose POC Glucose Lactic Acid Calcium 6.3 L Ionized Calcium Magnesium AST ALT Alkaline Phosphatase Lactate Dehydrogenase NT-Pro-B Natriuret Pep Total Protein Albumin Arterial Blood Glucose Arterial Blood Ionized Calcium Urine WBC (Auto) Phenytoin Crossmatch 10/04/20 10/04/20 10/05/20 18:00 22:00 05:00 WBC 17.6 H RBC 3.34 L Hgb 9.9 L Hct 29.4 L MCV MCH MCHC RDW 17.1 H Plt Count 56 L Lymph % (Auto) 8.5 L [place] % (Auto) Lymph # (Auto) [place] # (Auto) 1.0 H Seg Neutrophils % 85.1 H Seg Neuts % (Manual) Lymphocytes % (Manual) Monocytes % (Manual) Nucleated RBC % Seg Neutrophils # 15.0 H Seg Neutrophils # Man Lymphocytes # (Manual) Monocytes # (Manual) PT INR APTT Fibrinogen D-Dimer ABG pH POC ABG pCO2 POC ABG pO2 ABG pO2 ABG HCO3 ABG Base Excess ABG Hemoglobin ABG Oxyhemoglobin ABG Sodium ABG Potassium ABG Chloride ABG Glucose VBG pH Oxyhemoglobin Carboxyhemoglobin Sodium 136 L Potassium Chloride Carbon Dioxide BUN 18 H Creatinine 1.7 H Glucose POC Glucose Lactic Acid 2.30 H* Calcium 6.6 L Ionized Calcium Magnesium AST ALT Alkaline Phosphatase Lactate Dehydrogenase NT-Pro-B Natriuret Pep Total Protein Albumin Arterial Blood Glucose Arterial Blood Ionized Calcium Urine WBC (Auto) Phenytoin Crossmatch 10/05/20 10/05/20 10/05/20 05:00 05:00 05:03 WBC RBC Hgb Hct MCV MCH MCHC RDW Plt Count Lymph % (Auto) [place] % (Auto) Lymph # (Auto) [place] # (Auto) Seg Neutrophils % Seg Neuts % (Manual) Lymphocytes % (Manual) Monocytes % (Manual) Nucleated RBC % Seg Neutrophils # Seg Neutrophils # Man Lymphocytes # (Manual) Monocytes # (Manual) PT INR APTT Fibrinogen D-Dimer ABG pH 7.458 H POC ABG pCO2 POC ABG pO2 ABG pO2 74.3 L ABG HCO3 27.5 H ABG Base Excess 3.4 H ABG Hemoglobin 10.0 L ABG Oxyhemoglobin ABG Sodium ABG Potassium ABG Chloride ABG Glucose VBG pH Oxyhemoglobin 94.9 L Carboxyhemoglobin Sodium Potassium Chloride Carbon Dioxide BUN 19 H Creatinine 1.8 H Glucose POC Glucose Lactic Acid Calcium 6.8 L Ionized Calcium 3.9 L Magnesium AST 225 H ALT 85 H Alkaline Phosphatase Lactate Dehydrogenase NT-Pro-B Natriuret Pep Total Protein 4.5 L Albumin 2.7 L Arterial Blood Glucose Arterial Blood Ionized Calcium Urine WBC (Auto) Phenytoin Crossmatch 10/05/20 10/05/20 10/05/20 10:10 15:00 19:40 WBC RBC Hgb Hct MCV MCH MCHC RDW Plt Count Lymph % (Auto) [place] % (Auto) Lymph # (Auto) [place] # (Auto) Seg Neutrophils % Seg Neuts % (Manual) Lymphocytes % (Manual) Monocytes % (Manual) Nucleated RBC % Seg Neutrophils # Seg Neutrophils # Man Lymphocytes # (Manual) Monocytes # (Manual) PT INR APTT Fibrinogen D-Dimer ABG pH POC ABG pCO2 POC ABG pO2 ABG pO2 ABG HCO3 ABG Base Excess ABG Hemoglobin ABG Oxyhemoglobin ABG Sodium ABG Potassium ABG Chloride ABG Glucose VBG pH Oxyhemoglobin Carboxyhemoglobin Sodium Potassium 3.5 L Chloride Carbon Dioxide 31 H 32 H BUN 19 H 19 H Creatinine 1.8 H 1.8 H Glucose POC Glucose Lactic Acid Calcium 7.0 L 7.2 L Ionized Calcium Magnesium 2.90 H AST ALT Alkaline Phosphatase Lactate Dehydrogenase NT-Pro-B Natriuret Pep Total Protein Albumin Arterial Blood Glucose Arterial Blood Ionized Calcium Urine WBC (Auto) Phenytoin Crossmatch 10/06/20 10/06/20 10/06/20 01:05 03:12 04:00 WBC 17.1 H RBC 3.47 L Hgb Hct MCV MCH MCHC RDW 17.4 H Plt Count 82 L Lymph % (Auto) 8.3 L [place] % (Auto) Lymph # (Auto) [place] # (Auto) 1.1 H Seg Neutrophils % 83.8 H Seg Neuts % (Manual) Lymphocytes % (Manual) Monocytes % (Manual) Nucleated RBC % Seg Neutrophils # 14.3 H Seg Neutrophils # Man Lymphocytes # (Manual) Monocytes # (Manual) PT INR APTT Fibrinogen D-Dimer ABG pH 7.474 H POC ABG pCO2 POC ABG pO2 129.5 H ABG pO2 ABG HCO3 ABG Base Excess ABG Hemoglobin 11.4 L ABG Oxyhemoglobin ABG Sodium 131.8 L ABG Potassium ABG Chloride ABG Glucose 103 H VBG pH Oxyhemoglobin Carboxyhemoglobin 0.3 L Sodium Potassium Chloride Carbon Dioxide BUN Creatinine Glucose POC Glucose Lactic Acid Calcium Ionized Calcium Magnesium 3.70 H AST ALT Alkaline Phosphatase Lactate Dehydrogenase NT-Pro-B Natriuret Pep Total Protein Albumin Arterial Blood Glucose 103 H Arterial Blood Ionized Calcium 4.2 L Urine WBC (Auto) Phenytoin Crossmatch 10/06/20 10/06/20 10/06/20 04:00 05:31 08:12 WBC RBC Hgb Hct MCV MCH MCHC RDW Plt Count Lymph % (Auto) [place] % (Auto) Lymph # (Auto) [place] # (Auto) Seg Neutrophils % Seg Neuts % (Manual) Lymphocytes % (Manual) Monocytes % (Manual) Nucleated RBC % Seg Neutrophils # Seg Neutrophils # Man Lymphocytes # (Manual) Monocytes # (Manual) PT INR APTT Fibrinogen D-Dimer ABG pH POC ABG pCO2 POC ABG pO2 ABG pO2 ABG HCO3 ABG Base Excess ABG Hemoglobin ABG Oxyhemoglobin ABG Sodium ABG Potassium ABG Chloride ABG Glucose VBG pH Oxyhemoglobin Carboxyhemoglobin Sodium Potassium 3.5 L Chloride Carbon Dioxide BUN 19 H Creatinine 1.8 H Glucose 102 H POC Glucose 116 H Lactic Acid Calcium 7.2 L Ionized Calcium Magnesium 5.40 H AST 307 H ALT 137 H Alkaline Phosphatase Lactate Dehydrogenase NT-Pro-B Natriuret Pep Total Protein 4.5 L Albumin 2.6 L Arterial Blood Glucose Arterial Blood Ionized Calcium Urine WBC (Auto) Phenytoin Crossmatch 10/06/20 10/06/20 10/06/20 11:00 11:50 20:13 WBC RBC Hgb Hct MCV MCH MCHC RDW Plt Count Lymph % (Auto) [place] % (Auto) Lymph # (Auto) [place] # (Auto) Seg Neutrophils % Seg Neuts % (Manual) Lymphocytes % (Manual) Monocytes % (Manual) Nucleated RBC % Seg Neutrophils # Seg Neutrophils # Man Lymphocytes # (Manual) Monocytes # (Manual) PT INR APTT Fibrinogen D-Dimer ABG pH POC ABG pCO2 POC ABG pO2 ABG pO2 ABG HCO3 ABG Base Excess ABG Hemoglobin ABG Oxyhemoglobin ABG Sodium ABG Potassium ABG Chloride ABG Glucose VBG pH Oxyhemoglobin Carboxyhemoglobin Sodium Potassium Chloride Carbon Dioxide BUN Creatinine Glucose POC Glucose 106 H Lactic Acid Calcium Ionized Calcium Magnesium 6.50 H 6.20 H AST ALT Alkaline Phosphatase Lactate Dehydrogenase NT-Pro-B Natriuret Pep Total Protein Albumin Arterial Blood Glucose Arterial Blood Ionized Calcium Urine WBC (Auto) Phenytoin Crossmatch 10/06/20 10/06/20 10/06/20 20:17 22:29 23:57 WBC RBC Hgb Hct MCV MCH MCHC RDW Plt Count Lymph % (Auto) [place] % (Auto) Lymph # (Auto) [place] # (Auto) Seg Neutrophils % Seg Neuts % (Manual) Lymphocytes % (Manual) Monocytes % (Manual) Nucleated RBC % Seg Neutrophils # Seg Neutrophils # Man Lymphocytes # (Manual) Monocytes # (Manual) PT INR APTT Fibrinogen D-Dimer ABG pH POC ABG pCO2 POC ABG pO2 ABG pO2 ABG HCO3 ABG Base Excess ABG Hemoglobin ABG Oxyhemoglobin ABG Sodium ABG Potassium ABG Chloride ABG Glucose VBG pH Oxyhemoglobin Carboxyhemoglobin Sodium Potassium Chloride Carbon Dioxide BUN Creatinine Glucose POC Glucose 112 H 126 H 133 H Lactic Acid Calcium Ionized Calcium Magnesium AST ALT Alkaline Phosphatase Lactate Dehydrogenase NT-Pro-B Natriuret Pep Total Protein Albumin Arterial Blood Glucose Arterial Blood Ionized Calcium Urine WBC (Auto) Phenytoin Crossmatch 10/07/20 10/07/20 10/07/20 00:35 02:22 03:16 WBC RBC Hgb Hct MCV MCH MCHC RDW Plt Count Lymph % (Auto) [place] % (Auto) Lymph # (Auto) [place] # (Auto) Seg Neutrophils % Seg Neuts % (Manual) Lymphocytes % (Manual) Monocytes % (Manual) Nucleated RBC % Seg Neutrophils # Seg Neutrophils # Man Lymphocytes # (Manual) Monocytes # (Manual) PT INR APTT Fibrinogen D-Dimer ABG pH POC ABG pCO2 POC ABG pO2 ABG pO2 ABG HCO3 ABG Base Excess ABG Hemoglobin 11.6 L ABG Oxyhemoglobin ABG Sodium ABG Potassium ABG Chloride ABG Glucose 156 H VBG pH Oxyhemoglobin Carboxyhemoglobin 0.3 L Sodium Potassium Chloride Carbon Dioxide BUN Creatinine Glucose POC Glucose 124 H Lactic Acid Calcium Ionized Calcium Magnesium 5.90 H AST ALT Alkaline Phosphatase Lactate Dehydrogenase NT-Pro-B Natriuret Pep Total Protein Albumin Arterial Blood Glucose 156 H Arterial Blood Ionized Calcium 4.2 L Urine WBC (Auto) Phenytoin Crossmatch 10/07/20 10/07/20 10/07/20 04:06 05:45 07:05 WBC 19.2 H RBC 3.57 L Hgb Hct MCV MCH MCHC 35 H RDW 17.1 H Plt Count 129 L Lymph % (Auto) [place] % (Auto) Lymph # (Auto) [place] # (Auto) Seg Neutrophils % Seg Neuts % (Manual) 94.0 H Lymphocytes % (Manual) 6.0 L Monocytes % (Manual) Nucleated RBC % Seg Neutrophils # Seg Neutrophils # Man 18.0 H Lymphocytes # (Manual) Monocytes # (Manual) PT INR APTT Fibrinogen D-Dimer ABG pH POC ABG pCO2 POC ABG pO2 ABG pO2 ABG HCO3 ABG Base Excess ABG Hemoglobin ABG Oxyhemoglobin ABG Sodium ABG Potassium ABG Chloride ABG Glucose VBG pH Oxyhemoglobin Carboxyhemoglobin Sodium Potassium Chloride Carbon Dioxide BUN Creatinine Glucose POC Glucose 135 H 149 H Lactic Acid Calcium Ionized Calcium Magnesium AST ALT Alkaline Phosphatase Lactate Dehydrogenase NT-Pro-B Natriuret Pep Total Protein Albumin Arterial Blood Glucose Arterial Blood Ionized Calcium Urine WBC (Auto) Phenytoin Crossmatch 10/07/20 10/07/20 10/07/20 07:05 07:05 12:21 WBC RBC Hgb Hct MCV MCH MCHC RDW Plt Count Lymph % (Auto) [place] % (Auto) Lymph # (Auto) [place] # (Auto) Seg Neutrophils % Seg Neuts % (Manual) Lymphocytes % (Manual) Monocytes % (Manual) Nucleated RBC % Seg Neutrophils # Seg Neutrophils # Man Lymphocytes # (Manual) Monocytes # (Manual) PT INR APTT Fibrinogen D-Dimer ABG pH POC ABG pCO2 POC ABG pO2 ABG pO2 ABG HCO3 ABG Base Excess ABG Hemoglobin ABG Oxyhemoglobin ABG Sodium ABG Potassium ABG Chloride ABG Glucose VBG pH Oxyhemoglobin Carboxyhemoglobin Sodium Potassium Chloride Carbon Dioxide BUN 21 H Creatinine 1.7 H Glucose 171 H POC Glucose 124 H Lactic Acid Calcium 7.4 L Ionized Calcium Magnesium 6.10 H AST 245 H ALT 147 H Alkaline Phosphatase Lactate Dehydrogenase NT-Pro-B Natriuret Pep Total Protein 5.3 L Albumin 2.8 L Arterial Blood Glucose Arterial Blood Ionized Calcium Urine WBC (Auto) Phenytoin Crossmatch 10/07/20 10/07/20 10/07/20 19:52 21:00 21:50 WBC RBC Hgb Hct MCV MCH MCHC RDW Plt Count Lymph % (Auto) [place] % (Auto) Lymph # (Auto) [place] # (Auto) Seg Neutrophils % Seg Neuts % (Manual) Lymphocytes % (Manual) Monocytes % (Manual) Nucleated RBC % Seg Neutrophils # Seg Neutrophils # Man Lymphocytes # (Manual) Monocytes # (Manual) PT INR APTT Fibrinogen D-Dimer ABG pH POC ABG pCO2 POC ABG pO2 ABG pO2 ABG HCO3 ABG Base Excess ABG Hemoglobin ABG Oxyhemoglobin ABG Sodium ABG Potassium ABG Chloride ABG Glucose VBG pH Oxyhemoglobin Carboxyhemoglobin Sodium Potassium Chloride Carbon Dioxide BUN Creatinine Glucose POC Glucose 193 H 138 H Lactic Acid Calcium Ionized Calcium 4.4 L Magnesium AST ALT Alkaline Phosphatase Lactate Dehydrogenase NT-Pro-B Natriuret Pep Total Protein Albumin Arterial Blood Glucose Arterial Blood Ionized Calcium Urine WBC (Auto) Phenytoin Crossmatch 10/07/20 10/08/20 10/08/20 23:41 04:20 05:30 WBC RBC Hgb Hct MCV MCH MCHC RDW Plt Count Lymph % (Auto) [place] % (Auto) Lymph # (Auto) [place] # (Auto) Seg Neutrophils % Seg Neuts % (Manual) Lymphocytes % (Manual) Monocytes % (Manual) Nucleated RBC % Seg Neutrophils # Seg Neutrophils # Man Lymphocytes # (Manual) Monocytes # (Manual) PT INR APTT Fibrinogen D-Dimer ABG pH 7.467 H POC ABG pCO2 POC ABG pO2 189.8 H ABG pO2 ABG HCO3 ABG Base Excess ABG Hemoglobin 10.8 L ABG Oxyhemoglobin ABG Sodium ABG Potassium ABG Chloride ABG Glucose 133 H VBG pH Oxyhemoglobin Carboxyhemoglobin Sodium Potassium Chloride Carbon Dioxide BUN Creatinine Glucose POC Glucose 118 H 114 H Lactic Acid Calcium Ionized Calcium Magnesium AST ALT Alkaline Phosphatase Lactate Dehydrogenase NT-Pro-B Natriuret Pep Total Protein Albumin Arterial Blood Glucose 133 H Arterial Blood Ionized Calcium 4.2 L Urine WBC (Auto) Phenytoin Crossmatch 10/08/20 10/08/20 10/08/20 05:43 06:42 06:42 WBC 23.6 H RBC 3.54 L Hgb Hct MCV MCH MCHC RDW 17.8 H Plt Count Lymph % (Auto) [place] % (Auto) Lymph # (Auto) [place] # (Auto) Seg Neutrophils % Seg Neuts % (Manual) 93.0 H Lymphocytes % (Manual) 3.0 L Monocytes % (Manual) Nucleated RBC % 1.0 H Seg Neutrophils # Seg Neutrophils # Man 21.9 H Lymphocytes # (Manual) 0.7 L Monocytes # (Manual) 0.9 H PT INR APTT Fibrinogen D-Dimer ABG pH POC ABG pCO2 POC ABG pO2 ABG pO2 ABG HCO3 ABG Base Excess ABG Hemoglobin ABG Oxyhemoglobin ABG Sodium ABG Potassium ABG Chloride ABG Glucose VBG pH Oxyhemoglobin Carboxyhemoglobin Sodium Potassium Chloride Carbon Dioxide BUN 28 H Creatinine 1.6 H Glucose 141 H POC Glucose 126 H Lactic Acid Calcium 7.6 L Ionized Calcium Magnesium AST 162 H ALT 103 H Alkaline Phosphatase Lactate Dehydrogenase NT-Pro-B Natriuret Pep Total Protein 5.4 L Albumin 2.7 L Arterial Blood Glucose Arterial Blood Ionized Calcium Urine WBC (Auto) Phenytoin Crossmatch 10/08/20 10/08/20 10/08/20 11:20 16:05 20:14 WBC RBC Hgb Hct MCV MCH MCHC RDW Plt Count Lymph % (Auto) [place] % (Auto) Lymph # (Auto) [place] # (Auto) Seg Neutrophils % Seg Neuts % (Manual) Lymphocytes % (Manual) Monocytes % (Manual) Nucleated RBC % Seg Neutrophils # Seg Neutrophils # Man Lymphocytes # (Manual) Monocytes # (Manual) PT INR APTT Fibrinogen D-Dimer ABG pH POC ABG pCO2 POC ABG pO2 ABG pO2 ABG HCO3 ABG Base Excess ABG Hemoglobin ABG Oxyhemoglobin ABG Sodium ABG Potassium ABG Chloride ABG Glucose VBG pH Oxyhemoglobin Carboxyhemoglobin Sodium Potassium Chloride Carbon Dioxide BUN Creatinine Glucose POC Glucose 127 H 172 H 147 H Lactic Acid Calcium Ionized Calcium Magnesium AST ALT Alkaline Phosphatase Lactate Dehydrogenase NT-Pro-B Natriuret Pep Total Protein Albumin Arterial Blood Glucose Arterial Blood Ionized Calcium Urine WBC (Auto) Phenytoin Crossmatch 10/08/20 10/08/20 10/09/20 21:27 23:24 02:10 WBC RBC Hgb Hct MCV MCH MCHC RDW Plt Count Lymph % (Auto) [place] % (Auto) Lymph # (Auto) [place] # (Auto) Seg Neutrophils % Seg Neuts % (Manual) Lymphocytes % (Manual) Monocytes % (Manual) Nucleated RBC % Seg Neutrophils # Seg Neutrophils # Man Lymphocytes # (Manual) Monocytes # (Manual) PT INR APTT Fibrinogen D-Dimer ABG pH POC ABG pCO2 POC ABG pO2 ABG pO2 ABG HCO3 ABG Base Excess ABG Hemoglobin ABG Oxyhemoglobin ABG Sodium ABG Potassium ABG Chloride ABG Glucose VBG pH Oxyhemoglobin Carboxyhemoglobin Sodium Potassium Chloride Carbon Dioxide BUN Creatinine Glucose POC Glucose 140 H 135 H 111 H Lactic Acid Calcium Ionized Calcium Magnesium AST ALT Alkaline Phosphatase Lactate Dehydrogenase NT-Pro-B Natriuret Pep Total Protein Albumin Arterial Blood Glucose Arterial Blood Ionized Calcium Urine WBC (Auto) Phenytoin Crossmatch 10/09/20 10/09/20 10/09/20 03:44 04:39 05:46 WBC 19.7 H RBC 3.51 L Hgb Hct MCV MCH MCHC RDW 17.7 H Plt Count Lymph % (Auto) [place] % (Auto) Lymph # (Auto) [place] # (Auto) Seg Neutrophils % Seg Neuts % (Manual) 86.0 H Lymphocytes % (Manual) 4.0 L Monocytes % (Manual) 9.0 H Nucleated RBC % Seg Neutrophils # Seg Neutrophils # Man 16.9 H Lymphocytes # (Manual) 0.8 L Monocytes # (Manual) 1.8 H PT INR APTT Fibrinogen D-Dimer ABG pH 7.513 H POC ABG pCO2 POC ABG pO2 33.6 L ABG pO2 ABG HCO3 ABG Base Excess ABG Hemoglobin 11.1 L ABG Oxyhemoglobin 70.2 L ABG Sodium ABG Potassium 3.2 L ABG Chloride 108.0 H ABG Glucose 108 H VBG pH Oxyhemoglobin Carboxyhemoglobin Sodium Potassium Chloride Carbon Dioxide BUN Creatinine Glucose POC Glucose 109 H Lactic Acid Calcium Ionized Calcium Magnesium AST ALT Alkaline Phosphatase Lactate Dehydrogenase NT-Pro-B Natriuret Pep Total Protein Albumin Arterial Blood Glucose 108 H Arterial Blood Ionized Calcium 4.3 L Urine WBC (Auto) Phenytoin Crossmatch 10/09/20 10/10/20 10/10/20 05:46 04:00 04:00 WBC 18.4 H RBC Hgb Hct MCV MCH MCHC RDW 17.5 H Plt Count Lymph % (Auto) 9.8 L [place] % (Auto) 8.8 H Lymph # (Auto) [place] # (Auto) 1.6 H Seg Neutrophils % 80.0 H Seg Neuts % (Manual) Lymphocytes % (Manual) Monocytes % (Manual) Nucleated RBC % Seg Neutrophils # 14.7 H Seg Neutrophils # Man Lymphocytes # (Manual) Monocytes # (Manual) PT INR APTT Fibrinogen D-Dimer ABG pH POC ABG pCO2 POC ABG pO2 ABG pO2 ABG HCO3 ABG Base Excess ABG Hemoglobin ABG Oxyhemoglobin ABG Sodium ABG Potassium ABG Chloride ABG Glucose VBG pH Oxyhemoglobin Carboxyhemoglobin Sodium 146 H Potassium 3.2 L 2.9 L* Chloride 108.9 H 112.6 H Carbon Dioxide BUN 34 H 28 H Creatinine 1.4 H 1.3 H Glucose 109 H 101 H POC Glucose Lactic Acid Calcium 7.6 L 7.8 L Ionized Calcium Magnesium AST 137 H 122 H ALT 99 H 81 H Alkaline Phosphatase Lactate Dehydrogenase NT-Pro-B Natriuret Pep Total Protein 5.1 L 5.2 L Albumin 2.6 L 2.7 L Arterial Blood Glucose Arterial Blood Ionized Calcium Urine WBC (Auto) Phenytoin Crossmatch 10/10/20 10/10/20 10/11/20 04:42 09:50 00:44 WBC RBC Hgb Hct MCV MCH MCHC RDW Plt Count Lymph % (Auto) [place] % (Auto) Lymph # (Auto) [place] # (Auto) Seg Neutrophils % Seg Neuts % (Manual) Lymphocytes % (Manual) Monocytes % (Manual) Nucleated RBC % Seg Neutrophils # Seg Neutrophils # Man Lymphocytes # (Manual) Monocytes # (Manual) PT INR APTT Fibrinogen D-Dimer ABG pH 7.534 H POC ABG pCO2 POC ABG pO2 ABG pO2 95.2 H ABG HCO3 ABG Base Excess ABG Hemoglobin 11.3 L ABG Oxyhemoglobin ABG Sodium ABG Potassium ABG Chloride ABG Glucose VBG pH Oxyhemoglobin Carboxyhemoglobin Sodium Potassium Chloride Carbon Dioxide BUN Creatinine Glucose POC Glucose 109 H 106 H Lactic Acid Calcium Ionized Calcium Magnesium AST ALT Alkaline Phosphatase Lactate Dehydrogenase NT-Pro-B Natriuret Pep Total Protein Albumin Arterial Blood Glucose Arterial Blood Ionized Calcium Urine WBC (Auto) Phenytoin Crossmatch 10/11/20 10/11/20 10/11/20 04:00 04:00 06:08 WBC 27.0 H RBC Hgb Hct MCV MCH MCHC RDW 17.7 H Plt Count Lymph % (Auto) 6.3 L [place] % (Auto) Lymph # (Auto) [place] # (Auto) 1.5 H Seg Neutrophils % 87.1 H Seg Neuts % (Manual) Lymphocytes % (Manual) Monocytes % (Manual) Nucleated RBC % Seg Neutrophils # 23.5 H Seg Neutrophils # Man Lymphocytes # (Manual) Monocytes # (Manual) PT INR APTT Fibrinogen D-Dimer ABG pH POC ABG pCO2 POC ABG pO2 ABG pO2 ABG HCO3 ABG Base Excess ABG Hemoglobin ABG Oxyhemoglobin ABG Sodium ABG Potassium ABG Chloride ABG Glucose VBG pH Oxyhemoglobin Carboxyhemoglobin Sodium Potassium 3.2 L Chloride 110.4 H Carbon Dioxide 19 L BUN 22 H Creatinine Glucose 116 H POC Glucose 107 H Lactic Acid Calcium 7.7 L Ionized Calcium Magnesium 1.60 L AST ALT Alkaline Phosphatase Lactate Dehydrogenase NT-Pro-B Natriuret Pep Total Protein Albumin Arterial Blood Glucose Arterial Blood Ionized Calcium Urine WBC (Auto) Phenytoin Crossmatch 10/11/20 10/11/20 10/12/20 11:41 13:26 03:52 WBC RBC Hgb Hct MCV MCH MCHC RDW Plt Count Lymph % (Auto) [place] % (Auto) Lymph # (Auto) [place] # (Auto) Seg Neutrophils % Seg Neuts % (Manual) Lymphocytes % (Manual) Monocytes % (Manual) Nucleated RBC % Seg Neutrophils # Seg Neutrophils # Man Lymphocytes # (Manual) Monocytes # (Manual) PT INR APTT Fibrinogen D-Dimer ABG pH POC ABG pCO2 POC ABG pO2 ABG pO2 ABG HCO3 ABG Base Excess ABG Hemoglobin ABG Oxyhemoglobin ABG Sodium ABG Potassium ABG Chloride ABG Glucose VBG pH Oxyhemoglobin Carboxyhemoglobin Sodium Potassium Chloride Carbon Dioxide BUN Creatinine Glucose POC Glucose 116 H 114 H Lactic Acid Calcium Ionized Calcium Magnesium AST ALT Alkaline Phosphatase Lactate Dehydrogenase NT-Pro-B Natriuret Pep Total Protein Albumin Arterial Blood Glucose Arterial Blood Ionized Calcium Urine WBC (Auto) 24.0 H Phenytoin Crossmatch 10/12/20 10/12/20 10/12/20 04:24 14:47 21:33 WBC RBC Hgb Hct MCV MCH MCHC RDW Plt Count Lymph % (Auto) [place] % (Auto) Lymph # (Auto) [place] # (Auto) Seg Neutrophils % Seg Neuts % (Manual) Lymphocytes % (Manual) Monocytes % (Manual) Nucleated RBC % Seg Neutrophils # Seg Neutrophils # Man Lymphocytes # (Manual) Monocytes # (Manual) PT INR APTT Fibrinogen D-Dimer ABG pH POC ABG pCO2 POC ABG pO2 ABG pO2 ABG HCO3 ABG Base Excess ABG Hemoglobin ABG Oxyhemoglobin ABG Sodium ABG Potassium ABG Chloride ABG Glucose VBG pH Oxyhemoglobin Carboxyhemoglobin Sodium Potassium Chloride 109.9 H Carbon Dioxide 13 L BUN 18 H Creatinine Glucose 119 H POC Glucose 107 H Lactic Acid Calcium 7.6 L Ionized Calcium Magnesium 1.60 L AST ALT Alkaline Phosphatase Lactate Dehydrogenase NT-Pro-B Natriuret Pep Total Protein Albumin Arterial Blood Glucose Arterial Blood Ionized Calcium Urine WBC (Auto) Phenytoin Crossmatch 10/12/20 10/12/20 10/13/20 Unknown Unknown 07:00 WBC 24.3 H RBC 3.38 L Hgb 9.8 L Hct MCV MCH MCHC RDW 18.7 H Plt Count Lymph % (Auto) [place] % (Auto) Lymph # (Auto) [place] # (Auto) Seg Neutrophils % Seg Neuts % (Manual) 93.5 H Lymphocytes % (Manual) 4.5 L Monocytes % (Manual) Nucleated RBC % Seg Neutrophils # Seg Neutrophils # Man 22.7 H Lymphocytes # (Manual) 1.1 L Monocytes # (Manual) PT INR APTT Fibrinogen D-Dimer ABG pH POC ABG pCO2 POC ABG pO2 ABG pO2 ABG HCO3 ABG Base Excess ABG Hemoglobin ABG Oxyhemoglobin ABG Sodium ABG Potassium ABG Chloride ABG Glucose VBG pH Oxyhemoglobin Carboxyhemoglobin Sodium 135 L D Potassium 3.1 L Chloride Carbon Dioxide 17 L BUN Creatinine Glucose 510 H* POC Glucose Lactic Acid Calcium 7.2 L Ionized Calcium Magnesium AST ALT Alkaline Phosphatase Lactate Dehydrogenase NT-Pro-B Natriuret Pep Total Protein Albumin Arterial Blood Glucose Arterial Blood Ionized Calcium Urine WBC (Auto) Phenytoin 5.7 L Crossmatch 10/13/20 10/13/20 10/13/20 07:00 07:00 07:18 WBC 23.6 H RBC 3.26 L Hgb 9.4 L Hct 28.7 L MCV MCH MCHC RDW 18.3 H Plt Count Lymph % (Auto) [place] % (Auto) Lymph # (Auto) [place] # (Auto) Seg Neutrophils % Seg Neuts % (Manual) Lymphocytes % (Manual) Monocytes % (Manual) Nucleated RBC % Seg Neutrophils # Seg Neutrophils # Man Lymphocytes # (Manual) Monocytes # (Manual) PT INR APTT Fibrinogen D-Dimer ABG pH 7.473 H POC ABG pCO2 20.7 L POC ABG pO2 137.9 H ABG pO2 ABG HCO3 ABG Base Excess ABG Hemoglobin 11.2 L ABG Oxyhemoglobin 98.3 H ABG Sodium 135.9 L ABG Potassium ABG Chloride 111.0 H ABG Glucose 109 H VBG pH Oxyhemoglobin Carboxyhemoglobin 0.3 L Sodium 135 L Potassium 3.5 L Chloride 109.1 H Carbon Dioxide 18 L BUN Creatinine Glucose POC Glucose Lactic Acid Calcium 7.3 L Ionized Calcium Magnesium 1.60 L AST ALT Alkaline Phosphatase Lactate Dehydrogenase NT-Pro-B Natriuret Pep Total Protein Albumin Arterial Blood Glucose 109 H Arterial Blood Ionized Calcium Urine WBC (Auto) Phenytoin Crossmatch 10/14/20 10/14/20 10/15/20 04:00 04:00 05:50 WBC 28.6 H 23.2 H RBC 3.61 L 3.43 L Hgb 9.9 L Hct 30.0 L MCV MCH MCHC RDW 18.3 H 18.2 H Plt Count Lymph % (Auto) [place] % (Auto) Lymph # (Auto) [place] # (Auto) Seg Neutrophils % Seg Neuts % (Manual) 88.0 H 90.0 H Lymphocytes % (Manual) 5.0 L 4.0 L Monocytes % (Manual) Nucleated RBC % Seg Neutrophils # Seg Neutrophils # Man 25.2 H 20.9 H Lymphocytes # (Manual) 0.9 L Monocytes # (Manual) 1.4 H 0.9 H PT INR APTT Fibrinogen D-Dimer ABG pH POC ABG pCO2 POC ABG pO2 ABG pO2 ABG HCO3 ABG Base Excess ABG Hemoglobin ABG Oxyhemoglobin ABG Sodium ABG Potassium ABG Chloride ABG Glucose VBG pH Oxyhemoglobin Carboxyhemoglobin Sodium Potassium Chloride 109.9 H Carbon Dioxide 17 L BUN Creatinine Glucose POC Glucose Lactic Acid Calcium Ionized Calcium Magnesium AST ALT Alkaline Phosphatase Lactate Dehydrogenase NT-Pro-B Natriuret Pep Total Protein Albumin Arterial Blood Glucose Arterial Blood Ionized Calcium Urine WBC (Auto) Phenytoin Crossmatch 10/15/20 10/16/20 10/17/20 05:50 11:57 04:57 WBC 15.2 H RBC 3.43 L Hgb Hct MCV MCH MCHC RDW 18.1 H Plt Count Lymph % (Auto) [place] % (Auto) Lymph # (Auto) [place] # (Auto) Seg Neutrophils % Seg Neuts % (Manual) Lymphocytes % (Manual) Monocytes % (Manual) Nucleated RBC % Seg Neutrophils # Seg Neutrophils # Man Lymphocytes # (Manual) Monocytes # (Manual) PT INR APTT Fibrinogen D-Dimer ABG pH POC ABG pCO2 POC ABG pO2 ABG pO2 ABG HCO3 ABG Base Excess ABG Hemoglobin ABG Oxyhemoglobin ABG Sodium ABG Potassium ABG Chloride ABG Glucose VBG pH Oxyhemoglobin Carboxyhemoglobin Sodium Potassium Chloride 110.3 H Carbon Dioxide 18 L BUN Creatinine Glucose 105 H POC Glucose 111 H Lactic Acid Calcium 8.3 L Ionized Calcium Magnesium AST ALT Alkaline Phosphatase Lactate Dehydrogenase NT-Pro-B Natriuret Pep Total Protein Albumin Arterial Blood Glucose Arterial Blood Ionized Calcium Urine WBC (Auto) Phenytoin Crossmatch 10/17/20 10/17/20 10/18/20 05:25 21:16 01:31 WBC RBC Hgb Hct MCV MCH MCHC RDW Plt Count Lymph % (Auto) [place] % (Auto) Lymph # (Auto) [place] # (Auto) Seg Neutrophils % Seg Neuts % (Manual) Lymphocytes % (Manual) Monocytes % (Manual) Nucleated RBC % Seg Neutrophils # Seg Neutrophils # Man Lymphocytes # (Manual) Monocytes # (Manual) PT INR APTT Fibrinogen D-Dimer ABG pH POC ABG pCO2 POC ABG pO2 ABG pO2 ABG HCO3 ABG Base Excess ABG Hemoglobin ABG Oxyhemoglobin ABG Sodium ABG Potassium ABG Chloride ABG Glucose VBG pH Oxyhemoglobin Carboxyhemoglobin Sodium Potassium Chloride Carbon Dioxide BUN Creatinine Glucose POC Glucose 107 H 106 H 119 H Lactic Acid Calcium Ionized Calcium Magnesium AST ALT Alkaline Phosphatase Lactate Dehydrogenase NT-Pro-B Natriuret Pep Total Protein Albumin Arterial Blood Glucose Arterial Blood Ionized Calcium Urine WBC (Auto) Phenytoin Crossmatch 10/18/20 10/18/20 05:45 11:23 WBC RBC Hgb Hct MCV MCH MCHC RDW Plt Count Lymph % (Auto) [place] % (Auto) Lymph # (Auto) [place] # (Auto) Seg Neutrophils % Seg Neuts % (Manual) Lymphocytes % (Manual) Monocytes % (Manual) Nucleated RBC % Seg Neutrophils # Seg Neutrophils # Man Lymphocytes # (Manual) Monocytes # (Manual) PT INR APTT Fibrinogen D-Dimer ABG pH POC ABG pCO2 POC ABG pO2 ABG pO2 ABG HCO3 ABG Base Excess ABG Hemoglobin ABG Oxyhemoglobin ABG Sodium ABG Potassium ABG Chloride ABG Glucose VBG pH Oxyhemoglobin Carboxyhemoglobin Sodium Potassium Chloride Carbon Dioxide BUN Creatinine Glucose POC Glucose 106 H 115 H Lactic Acid Calcium Ionized Calcium Magnesium AST ALT Alkaline Phosphatase Lactate Dehydrogenase NT-Pro-B Natriuret Pep Total Protein Albumin Arterial Blood Glucose Arterial Blood Ionized Calcium Urine WBC (Auto) Phenytoin Crossmatch
[2020-10-19] MEDS: INSULIN REGULAR, HUMAN 100 UNIT/ML 3ML VIAL SUB-Q SCH ×3 (00:53→09:48)
[2020-10-19] MEDS: DEXTROSE 10% IN WATER 1,000 ML IV SCH ×2 (01:19→16:59)
[2020-10-19] MEDS: VANCOMYCIN 1,750 MG in SODIUM CHLORIDE 0.9% 500 ML 500 ML IV SCH ×2 (02:16→14:07)
[2020-10-19] MEDS: dexmedeTOMIDine 1,000 MCG in SODIUM CHLORIDE 0.9% 250ML 250 ML IV SCH (05:18)
[2020-10-19] MEDS: IPRATROPIUM/ALBUTEROL SULFATE 3 ML AMPUL.NEB IH SCH ×4 (05:35→22:05)
[2020-10-19] MEDS: metroNIDAZOLE/NS 500 MG/100 ML 500 MG/100 ML BAG IV SCH ×3 (05:37→19:59)
[2020-10-19] MEDS: hydrALAZINE 25 MG TAB PO SCH ×3 (05:37→21:31)
[2020-10-19] MEDS: SODIUM BICARBONATE 650 MG TAB PO SCH ×3 (08:17→20:00)
--- NOTE | 2020-10-19 09:18 | Progress Note ---
Assessment and Plan Assessment and plan: 30 year old -Marshallese female CHE 10/25/20 at 36w5d who presents with seizures in triage on 10/02/20. Pt was not able to provide history but per pt's , she presented to the hospital to return a 24 hour urine specimen for analysis. She then suddenly reported that she did not feel good. She was taken to labor and delivery and shortly after arrival, she began seizing. During this time, a code met was called because the patient became hypoxic. She was then noted to be without a pulse. Chest compressions were started immediately, and the patient was emergently taken to the operating room for delivery of the fetus. Off note, This patient has had care at [facility] with comanagement by [facility] since 11 wks complicated by ADHD, morbid obesity, generalized anxiety disorder, panic attacks, chronic narcotic use, fibromyalgia, GERD, Irritable Bowel Syndrome, Migraines, h/o endometrial ablation and ovarian vein embolization, genital herpes, insomnia, LGA fetus, nausea and vomiting, polyhydramnios, quad screen positive for Down's Syndrome, and previous x 3. She is GBS negative. 11:30: Pt brought to L&D triage for evaluation of possible labor. Pt accompanied by her spouse. Pt spouse poor historian; unable to obtain history- allergies at this time. Pt taken from registration to triage area via WC. Pt unresponsive, actively seizing with snorous respirations. packaging coordinator, Kassy, called and requesting assistance. 11:35: Multiple staff at bedside. Pt 02 sat 67% on nonrebreather, unable to read BP at this time. Yifan Theodore CRNA, at bedside for intubation and assistance with IV insertion. INT attempt by multiple RNs unsuccessful at this time. 11:42: Pt being bagged by KORIN, 02% 79%. No pulse palpated, compressions started at this time; bharati young called and Dr. Newberry preparing OR for emergent c/s. 11:44: Continued compressions on stretcher while transporting pt to OR 1. Pt being bagged with jaw thrust manuever in place by KORIN Stringer student. 11:45: Arrival to OR 1. Dr. Newberry and Dr. Portillo present for emergent c/s. Code team arrived for continued care. patient revived and c/s done Patient has been bleeding from C/s site followed by supracervical hysterectomy for severe bleeding Patient transfused multiple units of PRBC, Patient in DIC. Transferred to the ICU 10/03. Patient seen and examined at bedside this morning. Patient is nonresponsive and mechanically ventilated. On pressors. Labs reviewed-has leukocytosis, anemia, thrombocytopenia, ADOLPH and lactic acidosis. Started on IV antibiotics to cover possible sepsis secondary to DIC. Hematology oncology recommendations appreciated-needs additional cryoprecipitate and FFP. Monitor D-dimer, fibrinogen and frequent labs. Nephrology consulted for lactic acidosis and ADOLPH. 10/04. Remains mechanically ventilated. Kevin antibiotics. Labs shows improved acidosis - lactic acid 3.5. Hb drop noted. Getting transfused 2 units PRBCs. Platelet count is ~40k. Continue to monitor labs closely. Critical care team on board. 10/05; xray reviewed, concerning for multifocal infilrate, likely underlying Pneumonia, will add ID consult to assist with management of this critically ill patient, start tube feed, closely monitor renal system 10/06: Resumed care, remains on mechanical ventilation. No active bleeding, H&H stable. Continue to monitor CBC and BMP. Continue IV antibiotic for underlying pneumonia. Follow critical care and ID recommendation. 10/07: Remains on mechanical ventilation. No active bleeding, H&H stable. Critical care following, wean off ventilation as tolerated. 10/08: Patient had another cardiac arrest last night. Remains on mechanical ventilation, update family. Continue supportive care -poor prognosis 10/09: Called patient mother and discussed about patient care and management. Answered all question to best of my knowledge and family satisfaction. Patient remains on mechanical ventilation, cardiac arrest x2 so far. Critically sick, poor prognosis 10/10: remains on mechanical ventilation. h/h stable, no active bleeding. monito r CBC/BMP 10/11: WBC trended up with diarrhea, started on vancomycin po. remains on MV, off pressor, tolerating TF 10/12: remains on MV, off pressor, tolerating TF. called family for update but unable to reach, could not leave message as it was full. cont supportive care, wean off vent as tolerated. 10/13/2020; patient is on mechanical ventilation, tolerating tube feeding. Patient has labored breathing. Neuro was consulted and recommend MRI. Patient is on Precedex. Rectal tube in place. 10/14/2020; patient is on mechanical ventilation, Precedex. Patient had fever and blood culture ordered. Patient is on IV vancomycin per ID recommendation. Neuro consulted and recommend MRI. Continue to monitor. Prognosis is guarded. 10/15/2020; patient is on mechanical ventilation, Precedex. Patient had fever and blood culture ordered. Patient is on IV vancomycin per ID recommendation. Neuro consulted and recommend MRI. Continue to monitor. Prognosis is guarded. 10/17: Remains with C.DIFF and Bactermia, Poor prognosis. No purposful movement. MRI and EEG discussed with Intensvisit, Continue aggressive BP control. 10/18: Blood pressure better controlled MRI done 10/15 shows mild improvement in edema. We will continue to monitor mother was at bedside yesterday. Nursing documentation trach and PEG discussed with the mother including goals of care. She is still in denial about the gravity of her daughters her condition which is understandable considering her age. Continue aggressive management at this time. Await for bacteremia to clear by ID before placing PICC line. 10/19: Patient for possible PEG and Trach, ID following, repeat cultures remain negative. Poor prognosis The high probability of a clinically significant, sudden or life threatening deterioration of the [MULTIPLE ORGAN] system(s) required my full and direct attention, intervention and personal management. The aggregate critical care time was [35] minutes. This time is in addition to time spent performing reported procedures but includes the following: [X] Data Review and interpretation [X] Patient assessment and monitoring of vital signs [X] Documentation [X] Medication orders and management History Interval history: Patient seen and examined, remains critical ill on the ventilator, Hospitalist Physical - Physical exam Narrative exam: VITAL SIGNS: Reviewed. GENERAL: Intubated HEAD: No signs of head trauma. Opens her eyes but no purposeful movement EYES: Pupils are equal. MOUTH: OT in place NECK: No adenopathy, no JVD. CHEST: Rales posteriorly CARDIAC: normal S1 and S2, without murmurs, gallops, or rubs. ABDOMEN: Soft, non tender and non distended. surgical wound in tact, No rebound or guarding, and no masses palpated. Bowel Sounds normal. AVINASH drain intact with bloody fluid MUSCULOSKELETAL: No edema NEUROLOGIC EXAM: Intubated SKIN: No obvious lesions - Constitutional Vitals: Temp Pulse Resp BP Pulse Ox 99.4 F 85 22 123/69 99 10/19/20 03:21 10/19/20 08:43 10/19/20 06:00 10/19/20 08:18 10/19/20 08:43 General appearance: Present: obese, other (sedated) HEART Score - HEART Score Age: < 45 Risk factors: 1-2 risk factors - Critical Actions Critical Actions: >7 pts:50-65% risk of adverse cardiac event. Early invasive measures Results - Labs CBC & Chem 7: 10/17/20 04:57 10/20/20 07:59 Labs: Laboratory Last Values WBC 15.2 K/mm3 (4.5-11.0) H 10/17/20 04:57 RBC 3.43 M/mm3 (3.65-5.03) L 10/17/20 04:57 Hgb 10.1 gm/dl (10.1-14.3) 10/17/20 04:57 Hct 31.2 % (30.3-42.9) 10/17/20 04:57 MCV 91 fl (79-97) 10/17/20 04:57 MCH 29 pg (28-32) 10/17/20 04:57 MCHC 32 % (30-34) 10/17/20 04:57 RDW 18.1 % (13.2-15.2) H 10/17/20 04:57 Plt Count 366 K/mm3 (140-440) 10/17/20 04:57 Lymph % (Auto) 6.3 % (13.4-35.0) L 10/11/20 04:00 Christian % (Auto) 5.4 % (0.0-7.3) 10/11/20 04:00 Eos % (Auto) 0.9 % (0.0-4.3) 10/11/20 04:00 Baso % (Auto) 0.3 % (0.0-1.8) 10/11/20 04:00 Lymph # (Auto) 1.7 K/mm3 (1.2-5.4) 10/11/20 04:00 Christian # (Auto) 1.5 K/mm3 (0.0-0.8) H 10/11/20 04:00 Eos # (Auto) 0.3 K/mm3 (0.0-0.4) 10/11/20 04:00 Baso # (Auto) 0.1 K/mm3 (0.0-0.1) 10/11/20 04:00 Add Manual Diff Complete 10/15/20 05:50 Total Counted 100 10/15/20 05:50 Seg Neutrophils % 87.1 % (40.0-70.0) H 10/11/20 04:00 Seg Neuts % (Manual) 90.0 % (40.0-70.0) H 10/15/20 05:50 Band Neutrophils % 2.0 % 10/15/20 05:50 Lymphocytes % (Manual) 4.0 % (13.4-35.0) L 10/15/20 05:50 Reactive Lymphs % (Man) 1.0 % 10/02/20 12:18 Monocytes % (Manual) 4.0 % (0.0-7.3) 10/15/20 05:50 Eosinophils % (Manual) 1.0 % (0.0-4.3) 10/14/20 04:00 Myelocytes % 2.0 % 10/02/20 13:05 Metamyelocytes % 1.0 % 10/14/20 04:00 Nucleated RBC % Not Reportable 10/15/20 05:50 Seg Neutrophils # 23.5 K/mm3 (1.8-7.7) H 10/11/20 04:00 Seg Neutrophils # Man 20.9 K/mm3 (1.8-7.7) H 10/15/20 05:50 Band Neutrophils # 0.5 K/mm3 10/15/20 05:50 Lymphocytes # (Manual) 0.9 K/mm3 (1.2-5.4) L 10/15/20 05:50 Abs React Lymphs (Man) 0.0 K/mm3 10/15/20 05:50 Monocytes # (Manual) 0.9 K/mm3 (0.0-0.8) H 10/15/20 05:50 Eosinophils # (Manual) 0.0 K/mm3 (0.0-0.4) 10/15/20 05:50 Basophils # (Manual) 0.0 K/mm3 (0.0-0.1) 10/15/20 05:50 Metamyelocytes # 0.0 K/mm3 10/15/20 05:50 Myelocytes # 0.0 K/mm3 10/15/20 05:50 Promyelocytes # 0.0 K/mm3 10/15/20 05:50 Blast Cells # 0.0 K/mm3 10/15/20 05:50 WBC Morphology Not Reportable 10/15/20 05:50 Hypersegmented Neuts Not Reportable 10/15/20 05:50 Hyposegmented Neuts Not Reportable 10/15/20 05:50 Hypogranular Neuts Not Reportable 10/15/20 05:50 Smudge Cells Not Reportable 10/15/20 05:50 Toxic Granulation Not Reportable 10/15/20 05:50 Toxic Vacuolation Not Reportable 10/15/20 05:50 Dohle Bodies Not Reportable 10/15/20 05:50 Pelger-Huet Anomaly Not Reportable 10/15/20 05:50 Ester Rods Not Reportable 10/15/20 05:50 Platelet Estimate Consistent w auto 10/15/20 05:50 Clumped Platelets Not Reportable 10/15/20 05:50 Plt Clumps, EDTA Not Reportable 10/15/20 05:50 Large Platelets Not Reportable 10/15/20 05:50 Giant Platelets Not Reportable 10/15/20 05:50 Platelet Satelliting Not Reportable 10/15/20 05:50 Plt Morphology Comment Not Reportable 10/15/20 05:50 RBC Morphology Not Reportable 10/15/20 05:50 Dimorphic RBCs Not Reportable 10/15/20 05:50 Polychromasia Not Reportable 10/15/20 05:50 Hypochromasia Few 10/15/20 05:50 Poikilocytosis Not Reportable 10/15/20 05:50 Anisocytosis 1+ 10/15/20 05:50 Microcytosis Not Reportable 10/15/20 05:50 Macrocytosis Not Reportable 10/15/20 05:50 Spherocytes Not Reportable 10/15/20 05:50 Pappenheimer Bodies Not Reportable 10/15/20 05:50 Sickle Cells Not Reportable 10/15/20 05:50 Target Cells Not Reportable 10/15/20 05:50 Tear Drop Cells Not Reportable 10/15/20 05:50 Ovalocytes Not Reportable 10/15/20 05:50 Stomatocytes Few 10/14/20 04:00 Helmet Cells Not Reportable 10/15/20 05:50 Burk-Lepanto Bodies Not Reportable 10/15/20 05:50 [place] Rings Not Reportable 10/15/20 05:50 Antoine Cells Not Reportable 10/15/20 05:50 Bite Cells Not Reportable 10/15/20 05:50 Crenated Cell Not Reportable 10/15/20 05:50 Elliptocytes Not Reportable 10/15/20 05:50 Acanthocytes (Spur) Not Reportable 10/15/20 05:50 Rouleaux Not Reportable 10/15/20 05:50 Hemoglobin C Crystals Not Reportable 10/15/20 05:50 Schistocytes Not Reportable 10/15/20 05:50 Malaria parasites Not Reportable 10/15/20 05:50 Sharad Bodies Not Reportable 10/15/20 05:50 Hem Pathologist Commnt No 10/15/20 05:50 PT 13.0 Sec. (12.2-14.9) 10/05/20 05:00 INR 1.00 (0.87-1.13) 10/05/20 05:00 APTT 31.6 Sec. (24.2-36.6) 10/03/20 00:40 Fibrinogen 336 mg/dl (211-480) 10/04/20 10:00 D-Dimer > 82429 ng/mlDDU (0-234) H 10/04/20 10:00 ABG pH 7.473 (7.320-7.450) H 10/13/20 07:18 POC ABG pCO2 20.7 mmHg (32.0-48.0) L 10/13/20 07:18 ABG pCO2 25.0 mm Hg 10/10/20 04:42 POC ABG pO2 137.9 mmHg (83-108) H 10/13/20 07:18 ABG pO2 95.2 mm Hg (80.0-90.0) H 10/10/20 04:42 POC ABG HCO3 14.8 10/13/20 07:18 ABG HCO3 20.6 mmol/L (20.0-26.0) 10/10/20 04:42 ABG O2 Saturation 97.9 % (95.0-99.0) 10/10/20 04:42 ABG O2 Content 15.4 (0.0-44) 10/10/20 04:42 POC ABG Base Excess -6.9 10/13/20 07:18 ABG Base Excess -0.8 mmol/L (-2.0-3.0) 10/10/20 04:42 ABG Hemoglobin 11.2 (12.0-17.5) L 10/13/20 07:18 ABG Oxyhemoglobin 98.3 (94-98) H 10/13/20 07:18 ABG Carboxyhemoglobin 1.4 % (0.0-5.0) 10/10/20 04:42 ABG Methemoglobin 0.3 (0.0-1.5) 10/13/20 07:18 ABG Sodium 135.9 mmol/L (136.0-145.0) L 10/13/20 07:18 ABG Potassium 3.7 mmol/L (3.40-4.50) 10/13/20 07:18 ABG Chloride 111.0 mmol/L (98-107) H 10/13/20 07:18 ABG Glucose 109 mg/dL (65-95) H 10/13/20 07:18 VBG pH 6.949 (7.320-7.420) L* 10/02/20 Unknown Oxyhemoglobin 95.9 % (95.0-99.0) 10/10/20 04:42 Carboxyhemoglobin 0.3 (0.5-1.5) L 10/13/20 07:18 FiO2 30.0 10/13/20 07:18 Sodium 139 mmol/L (137-145) 10/15/20 05:50 Potassium 3.6 mmol/L (3.6-5.0) 10/15/20 05:50 Chloride 110.3 mmol/L (98-107) H 10/15/20 05:50 Carbon Dioxide 18 mmol/L (22-30) L 10/15/20 05:50 Anion Gap 14 mmol/L 10/15/20 05:50 BUN 12 mg/dL (7-17) 10/15/20 05:50 Creatinine 0.6 mg/dL (0.6-1.2) 10/15/20 05:50 Estimated GFR > 60 ml/min 10/15/20 05:50 BUN/Creatinine Ratio 20 % 10/15/20 05:50 Glucose 105 mg/dL (65-100) H 10/15/20 05:50 POC Glucose 95 mg/dL (70-105) 10/19/20 07:34 Lactic Acid 1.90 mmol/L (0.7-2.0) 10/04/20 22:00 Uric Acid 7.5 mg/dL (3.5-7.6) 10/02/20 13:05 Calcium 8.3 mg/dL (8.4-10.2) L 10/15/20 05:50 Ionized Calcium 4.4 mg/dL (4.8-5.6) L 10/07/20 21:00 Phosphorus 3.40 mg/dL (2.5-4.5) D 10/11/20 04:00 Magnesium 1.60 mg/dL (1.7-2.3) L 10/13/20 07:00 Total Bilirubin 0.90 mg/dL (0.1-1.2) 10/10/20 04:00 AST 122 units/L (5-40) H 10/10/20 04:00 ALT 81 units/L (7-56) H 10/10/20 04:00 Alkaline Phosphatase 94 units/L (35-129) 10/10/20 04:00 Lactate Dehydrogenase 769 units/L (91-180) H 10/02/20 13:05 NT-Pro-B Natriuret Pep 2788 pg/mL (0-450) H 10/04/20 10:00 Total Protein 5.2 g/dL (6.3-8.2) L 10/10/20 04:00 Albumin 2.7 g/dL (3.9-5) L 10/10/20 04:00 Albumin/Globulin Ratio 1.1 % 10/10/20 04:00 Procalcitonin 0.58 ng/mL (<0.15) 10/11/20 15:33 Arterial Blood Glucose 109 mg/dL (65-95) H 10/13/20 07:18 Arterial Blood Ionized Calcium 4.6 mg/dL (4.6-5.3) 10/13/20 07:18 Urine Color Yellow (Yellow) 10/11/20 13:26 Urine Turbidity Clear (Clear) 10/11/20 13:26 Urine pH 7.0 (5.0-7.0) 10/11/20 13:26 Ur Specific [place] 1.014 (1.003-1.030) 10/11/20 13:26 Urine Protein 100 mg/dl mg/dL (Negative) 10/11/20 13:26 Urine Glucose (UA) Neg mg/dL (Negative) 10/11/20 13:26 Urine Ketones Neg mg/dL (Negative) 10/11/20 13:26 Urine Blood Mod (Negative) 10/11/20 13:26 Urine Nitrite Neg (Negative) 10/11/20 13:26 Urine Bilirubin Neg (Negative) 10/11/20 13:26 Urine Urobilinogen < 2.0 mg/dL (<2.0) 10/11/20 13:26 Ur Leukocyte Esterase Sm (Negative) 10/11/20 13:26 Urine WBC (Auto) 24.0 /HPF (0.0-6.0) H 10/11/20 13:26 Urine RBC (Auto) 59.0 /HPF (0.0-6.0) 10/11/20 13:26 Urine Bacteria (Auto) 1+ /HPF (Negative) 10/11/20 13:26 Urine Mucus Few /HPF 10/11/20 13:26 Random Vancomycin 10.7 ug/mL (0-40.0) 10/16/20 13:09 Phenytoin 5.7 ug/mL (10.0-20.0) L 10/13/20 07:00 C. difficile Tox (PCR) Positive (Negative) 10/16/20 10:22 Coronavirus (PCR) Negative (Negative) 10/08/20 14:15 Blood Type O POSITIVE 10/02/20 12:50 Antibody Screen Negative 10/02/20 12:50 Crossmatch See Detail 10/02/20 12:50 Microbiology: Microbiology 10/15/20 16:55 Peripheral/Venous Blood Culture - Preliminary NO GROWTH AFTER 72 HOURS - Diagnostic Impressions Diagnostic Impressions: Echocardiogram 10/03/20 13:42 Transthoracic Echocardiogram Indication: S/P Cardiac Arrest R/O Cardiomyopathy BP: 133/71 Conclusions *Global left ventricular systolic function is normal. *The estimated ejection fraction is 60-65%. *There is trace of mitral regurgitation. *The right 0heart chambers are both slightly dilated. *There is mild tricuspid regurgitation. *There is mild-moderate pulmonary hypertension. *The right ventricular systolic pressure is calculated at 44 mmHg. *The study quality is technically difficult. Findings Procedure Info: The study quality is technically difficult. The study is technically limited due to patient body habitus. The study was technically limited due to the patient's inability to lay in the left lateral decubitus position. Left Ventricle: The left ventricular chamber size is normal. There is no left ventricular hypertrophy. Global left ventricular systolic function is normal. The estimated ejection fraction is 60-65%. Left Atrium: The left atrial chamber size is normal. Right Ventricle: The right ventricle is slightly dilated. Right Atrium: The right atrium is mildly dilated. Aortic Valve: The aortic valve leaflets are mildly thickened. There is no evidence of aortic regurgitation. There is no evidence of aortic stenosis. Mitral Valve: The mitral valve leaflets are mildly thickened. There is trace of mitral regurgitation. There is no evidence of mitral stenosis. Tricuspid Valve: There is mild tricuspid regurgitation. The right ventricular systolic pressure is calculated at 44 mmHg. There is evidence of mild pulmonary hypertension. Pulmonic Valve: There is trace pulmonic regurgitation. Pericardium: There is no pericardial effusion. Aorta: There is no dilatation of the ascending aorta. There is no dilatation of the aortic root. Venous: The inferior vena cava is dilated. Measurements Chambers 2D Name Value Normal Range IVSd (2D) 1 cm (0.6 - 1.1) LVPWd (2D) 1.01 cm (0.6 - 1.1) LVIDd (2D) 4.58 cm (3.7 - 5.6) LVIDs (2D) 3.17 cm (2 - 3.8) LV FS (2D) 30.93 % - EF Teichholz (2D) 58.66 % - Ao root diameter (2D) 2.94 cm (2 - 3.7) Volumes/Mass Name Value Normal Range LA ESV SP 4CH (A/L) 72.82 ml - LA ESV SP 2CH (A/L) 66.86 ml - LA ESV BP (A/L) 74.49 ml - LA ESV SP 4CH (MOD) 71.03 ml - LA ESV SP 2CH (MOD) 64.3 ml - LV EDV SP 4CH (MOD) 98.82 ml - LV ESV SP 4CH (MOD) 24.8 ml - EF SP 4CH (MOD) 74.9 % - LV EDV SP 2CH (MOD) 86.1 ml - LV ESV SP 2CH (MOD) 36.93 ml - EF SP 2CH (MOD) 57.11 % - LV EDV BP 94.4 ml - LV ESV BP 32.66 ml - BP EF (MOD) 65.4 % - Diastolic/Systolic Function Name Value Normal Range MV E-wave Vmax 1.04 m/sec - MV deceleration time 160.46 msec - MV A-wave Vmax 0.92 m/sec - MV E:A ratio 1.14 ratio - Aortic Valve Name Value Normal Range AV Vmax 2.12 m/sec - AV VTI 22.37 cm - AV peak gradient 17.95 mmHg - AV mean gradient 7.29 mmHg - LVOT diameter 2.01 cm - LVOT Vmax 1.8 m/sec - LVOT VTI 27.17 cm - LVOT peak gradient 12.91 mmHg - LVOT mean gradient 6.83 mmHg - SV LVOT 86.42 ml - ANITA (continuity Vmax) 2.7 cm2 - ANITA (continuity VTI) 3.86 cm2 - Ascending Ao 3.18 cm - Tricuspid Valve Name Value Normal Range TV E-wave Vmax 0.88 m/sec - TR Vmax 3.01 m/sec - TR peak gradient 36.27 mmHg - RAP 8 mmHg - RVSP 44 mmHg - IVC diameter 2.65 cm (1.2 - 2.3) Pulmonic Valve/Qp:Qs Name Value Normal Range PV Vmax 1.22 m/sec - PV peak gradient 5.91 mmHg - RVOT Vmax 0.87 m/sec - RVOT VTI 13.32 cm - RVOT peak gradient 3 mmHg - PV acceleration time 110.37 msec - [place]/IV: Voiding Method Indwelling Catheter IV Catheter Type [Right INT / Saline Lock Antecubital] IV Catheter Type [Right Upper PICC Line arm] IV Catheter Type [Left Triple Lumen Cath Internal Jugular] IV Catheter Type [Left Hand] Peripheral IV IV Catheter Type [Left Peripheral IV Antecubital] Active Medications - Current Medications Current Medications: Generic Name Dose Route Start Last Admin Trade Name Freq PRN Reason Stop Dose Admin Acetaminophen 650 mg 10/05/20 16:34 10/16/20 00:13 Acetaminophen 325 Mg/10.15 Ml Oral Liqd Unit Dose FEEDTUBE 650 mg Q6H PRN Administration Non Cardiac Pain or Temp>100.5 Albuterol/Ipratropium 1 ampul 10/10/20 20:00 10/19/20 08:46 Ipratropium/Albuterol Sulfate 3 Ml Ampul.Neb IH 1 ampul Q8HRT ERINN Administration Lipase/Protease/Amylase 1 each 10/05/20 11:09 Lipase 10,500/Protease 25,000/Amylase 43,750 (Units) Dr Baarkat FEEDTUBE PRN PRN For Clogged Feeding Tube Buspirone HCl 10 mg 10/10/20 10:00 10/18/20 21:57 Buspirone 10 Mg Tab PO 10 mg BID ERINN Administration Buspirone HCl 5 mg 10/10/20 10:00 10/18/20 21:57 Buspirone 5 Mg Tab PO 5 mg BID ERINN Administration Famotidine 20 mg 10/07/20 10:00 10/18/20 21:56 Famotidine 20 Mg Tab PO 20 mg BID ERINN Administration Fentanyl 50 mcg 10/10/20 19:54 10/16/20 13:21 Fentanyl 100 Mcg/2 Ml Inj IV 50 mcg Q3HR PRN Administration Labored breathing Furosemide 40 mg 10/17/20 10:00 10/18/20 09:40 Furosemide 40 Mg Tab PO 40 mg QDAY ERINN Administration Hydralazine HCl 20 mg 10/07/20 11:49 10/17/20 07:20 Hydralazine 20 Mg/1 Ml Inj IV 20 mg Q6H PRN Administration SBP >170 Hydralazine HCl 50 mg 10/17/20 09:00 10/19/20 05:37 Hydralazine 25 Mg Tab PO 50 mg Q8HR ERINN Administration Hydrophilic Ointment 1 applic 10/04/20 06:55 Lip Therapy Vaseline TP Q2HR PRN Dry Lips Dexmedetomidine HCl 1,000 mcg/ 260 mls @ 7.249 mls/hr 10/13/20 05:00 10/19/20 05:18 Sodium Chloride IV 0.8 mcg/kg/hr TITRATE ERINN 28.995 mls/hr Administration Protocol 0.2 MCG/KG/HR Dextrose 1,000 mls @ 75 mls/hr 10/13/20 11:00 10/19/20 01:19 D10w IV 75 mls/hr DIRECT ERINN Administration Cefepime HCl 2 gm in 100 mls @ 200 mls/hr 10/14/20 22:00 10/18/20 21:58 Cefepime/Ns 2 Gm/100 Ml IV 200 mls/hr Q12HR ERINN Administration Protocol Metronidazole 500 mg in 100 mls @ 100 mls/hr 10/14/20 13:00 10/19/20 05:37 Flagyl 500 Mg/100 Ml IV 100 mls/hr Q8H ERINN Administration Protocol Vancomycin HCl 1,750 mg/ 535 mls @ 333.333 mls/hr 10/15/20 02:00 10/19/20 02:16 Sodium Chloride IV 333 mls/hr Q12H ERINN Administration Insulin Human Regular 0 unit 10/12/20 13:00 10/19/20 05:44 Insulin Regular, Human 100 Unit/Ml 3ml Vial SUB-Q Not Given Q4H ERINN Protocol Labetalol HCl 300 mg 10/17/20 09:00 10/19/20 08:18 Labetalol 100 Mg Tab PO 300 mg TID ERINN Administration Lorazepam 2 mg 10/02/20 22:05 10/10/20 16:56 Lorazepam 2 Mg/Ml Vial IV 2 mg Q2H PRN Administration Seizures Multi-Ingred Cream/Lotion/Oil/Oint 1 applic 10/04/20 06:55 Mineral Oil/Petrolatum, White Ophth Oint 3.5 Gm OU Q4HR PRN Dry Eye(s) Simple Syrup 15 ml 10/05/20 11:09 Simple Syrup 15 Ml FEEDTUBE PRN PRN Hypoglycemia Simple Syrup 30 ml 10/05/20 11:09 Simple Syrup 15 Ml FEEDTUBE PRN PRN Hypoglycemia Sodium Bicarbonate 325 mg 10/05/20 11:09 Sodium Bicarbonate 325 Mg Tab FEEDTUBE PRN PRN For Clogged Feeding Tube Sodium Bicarbonate 1,300 mg 10/13/20 14:00 10/19/20 08:17 Sodium Bicarbonate 650 Mg Tab PO 1,300 mg TID ERINN Administration Topiramate 50 mg 10/05/20 11:00 10/18/20 21:57 Topiramate Tab 25 Mg Tab PO 50 mg Q12HR ERINN Administration Nutrition/Malnutrition Assess - Dietary Evaluation Nutrition/Malnutrition Findings: Nutrition Notes Start: 10/04/20 11:13 Freq: Status: Active Protocol: Document 10/15/20 08:34 MEY (Rec: 10/15/20 08:39 [email or web address]) Nutrition Notes Initial or Follow up Reassessment Current Diagnosis Acute Kidney Injury, Respiratory Failure Other Pertinent Diagnosis Cardiac arrest, s/p c-sectuion and supracervial hysterectomy Current Diet Vital AF 1.2 at 65ml/hr Labs/Tests Reviewed Pertinent Medications Reviewed Height 5 ft 8 in Weight 118 kg [place] Body Weight (kg) 63.63 BMI 39.5 Weight change and time frame Wt change noted Weight Status Morbidly Obese Subjective/Other Information FU for TF tolerance. Observed TF running at goal rate and per RN pt is tolerating. Percent of energy/protein needs met: 100%/74% Burn Absent Trauma Absent GI Symptoms None Food Allergy Yes Current % PO Negligible Minimum of two criteria No Fluid Accumulation Mild (non-severe) #1 Nutrition Diagnosis Inadequate oral intake Diagnosis Progress(for reassessment Continues documentation) Is patient on ventilator? Yes Is Patient Ambulatory and/or Out of Bed No REE-([facility]-confined to bed) 2327.856 Kcal/Kg value to use for calculation 15 Approximate Energy Requirements Using 1770 kcal/Kg Calculation Used for Recommendations Kcal/kg Additional Notes Protein needs are up to 159g ( up to 2.5g/kg) Fluid needs are 1ml/kcal Nutrition Intervention Change Diet Order: Continue TF Nutrition Support: Vital AF 1.2 at 65 ml/hr. Flush with 100 ml q4h Kcal 1,872 Protein (gm) 117 Fluid (mL) 1,265 Goal #1 Meet at least 75% of energy and protein needs via TF Anticipated Discharge Needs: Unable to determine at this time Follow-Up By: 10/22/20 Additional Comments FU for TF tolerance
[2020-10-19] MEDS: TOPIRAMATE TAB 25 MG TAB PO SCH ×2 (09:48→21:31)
[2020-10-19] MEDS: CEFEPIME/NS 2 GM/100 ML 2 GM/100 ML BAG IV SCH ×2 (09:49→21:29)
[2020-10-19] MEDS: busPIRone 5 MG TAB PO SCH (09:49)
[2020-10-19] MEDS: FUROSEMIDE 40 MG TAB PO SCH (09:49)
[2020-10-19] MEDS: FAMOTIDINE 20 MG TAB PO SCH ×2 (09:49→21:31)
[2020-10-19] MEDS: busPIRone 10 MG TAB PO SCH (09:49)
--- NOTE | 2020-10-19 11:01 | Progress Note ---
Assessment and Plan 30 y/o female with Eclampsia, s/p emergent section with DIC, acute respiratory failure and worsening renal function. 10/19/20: Stable BP. Will meet/talk with family at noon over the phone with myself and case management. Need to discuss goals of care and what next steps would be. Patient would need trach and peg and transfer to LTACH if family ok with this. Follow up speciation of GNR's in blood. Has been on Cefepime. Continues therapy for C. Diff. Guarded prognosis. Continue daily PSV trials but not ready for extubation secondary to mental state. 10/18/20: Blood pressure is much better with the addition of meds started on yesterday. Need to have family meeting jesica in regards to goals of care. Continue Daily PSV trials but not ready for extubation. Continue therapy for C. Diff per ID. 10/17/20: CT scan was of no help in regards to fevers. C. Diff is positive and BP now is more uncontrolled despite increasing labetalol. Today will increase to 300 TID. Added TID Hydralazine and added PO lasix given her mild pulmonary htn seen on echo. Spoke with mother over the phone and she requests to come see the patient. Given current circumstances, will allow her to come briefly today and then will speak with her at the bedside. No neurology is available at the time and suspect these will be the majority of her questions. Tolerated PSV briefly yesterday and will do again today but not for extended periods as given her mental state she is not a candidate for extubation. I will also ask the mother about senior living care (trach and peg) when she comes today. Overall prognosis is guarded to poor. If oral meds cannot regulate blood pressure, may need Cardene drip. Continue therapy for C. Diff per ID. 10/16/20: Needs a different consent for CT of abdomen and pelvis. I have signed the one in the chart. The nurse who obtained the first consent did obtain consent for contrast, it just wasn't listed on the that consent. Await neurology input on EEG vs MRI findings. Patient has now been intubated 14 days. Need to have family meeting to discuss goals of care but I suspect family will want to hear from Neurology as well. Tolerating PSV trials but will only do briefly as patient is not a candidate for extubation today. Will increase labetalol to 200 TID based on MRI report. Overall prognosis is guarded to poor. 10/15/2020: MRI and CT's today. Continue Precedex and PRN fent pushes. ID ordered C. Diff test. Continue D10 and tube feeds. Continue vent support. Suspect patient will need trach and peg. 10/14/2020: Await MRI. Continue Precedex and only use PRN fent pushes. CM states that there is a . Now with persistent fever, will obtain CT abdomen pelvis with contrast to see if source for fevers can be found. Continue D10 as sugars are still not elevated. 10/12/2020: Patient seen on 10/12 but note entered late. Formal neurology consult today. Hold all sedation if possible and only use precedex. CM to find out if there is truly a or if the decisions would fall on mother as I do not know the ages of her children but I don't think they are of age to make decisions. Guarded prognosis given mental state. 10/08/2020: Will start patient on precedex today. Plan is to wean off fent drip. Will increase buspar to BID. Need to see patient on as little sedation as possible to determine neurological status. EEG has still not been read. Mag stopped yesterday. Largest concern now is neurologic function. 10/07/2020: Head CT unremarkable. Await EEG to be read. Will stop mag Drip. If seizures occur then will load with Keppra and start BID dosing of this. Appreciate OB note. Continue D10 as sugars are still not severely elevated until feeds are at goal. PRN ativan present as well. Will add dilaudid for pain control. Increased BB to TID and added PRN hydralazine 10/06/2020: Stat Head CT today. Likely needs EEG. Will order. Continue Mag drip and follow up levels. Continue feeds. Continue to wean FiO2 as tolerated. Hold sedatives but can give PRN ativan as needed for seizure activity. Continue D10 as Tube feeds are not at goal yet. Guarded prognosis with mental state. 10/05/2020: Feed today. Stop Albumin and Abx. Will stop D10 once feeds start but will continue q2 hour FSBS until 3 consecutive >180. H/H stable. Will continue to aggressively wean FiO2. Patient has a 6.5 tube that will likely i mpede PSV trials given her size so will attempt to change out. Also will restart her home meds for anxiety and chronic migraine therapy. Prognosis is still guarded but promising given her hemodynamic stability. Continue chowdhury for accurate urine out put. 10/04/2020: Much improved today. Still very ill however. Down to just one pressor. Still with good urine output. Await chemistry results from this am. Likely can stop Bicarb drip given improvement in pH but would like to see bicarb on blood work. Agree with continued transfusion of blood products. Needs fibrinongen levels as well as repeat coags. I cannot see the standing orders on my screen so will call down to lab and let them know what's needed. I know she has had at leas 2 cryo's but I am not exactly sure if the count is accurate in the computer in regards to PRBC's and FFP's. Platelets lower this am but still greater than 30K. Continue chowdhury for I/O measurement. Will start to wean FiO2 on vent. CXR looks like edema but oxygenation is stable right now. Resuscitation is the most important thing right now. Will continue abx therapy at least 24 more hours. Prognosis is still very guarded but patient showing sig ns of improvement. 1. CV-Extremely volume deplete as well as intrasvascular depletion. Will cont inue to bolus with LR and saline as needed. Will add Albumin to help with intravascular volume. Spoke with OB attending over phone yesterday. No acute indication for steroids at this time. Serial H/H's given maximum pressor requirements. Will transfuse to keep up with AVINASH drain and help with weaning. Severely acidotic but improving. Likely adding to pressor requirement. GOAL is map of 65 and will wean accordingly. Will start to wean Sohail first. Ordered art line as well. 2. Heme-DIC secondary to Eclampsia, possible sepsis but white count could be stress related. Will continue to transfuse PRBC's and FFP with Cryo as needed. Follow Fibrinogen levels. Tele Heme has been consulted and note reviewed. Will give one cryo for every 6 units of PRBC's transfused. has gotten one cryo, a waiting the other to thaw out. Plts at 72K right now. Hold on further transfusion. May need to consider Factor VII if execessive bleeding continues. Will also put on broad spec abx therapy incase of possible sepsis causing DIC. Hopeful with correction of coaguloapthy she will improve. 3. Very very guarded prognosis. Will continue aggressive resuscitation. Family to come visit given exceptional case and extremely guarded prognosis. CCT 31 minutes. Subjective Date of service: 10/19/20 Principal diagnosis: Eclampsia/HELLP Syndrome, ADOLPH, DIC; s/p , s/p supracervical hyst Interval history: No acute events. Mental status is unchanged. On Vent and stable. Eyes open but not following tracking. Blood cultures from 10/14 showing GNR's but not speciated yet. Called family for meeting this am but they were not ready. Spoke with neurology over the phone this am. Objective Vital Signs - 12hr 10/18/20 10/18/20 10/18/20 23:00 23:04 23:16 Temperature Pulse Rate 79 77 86 Pulse Rate [ Anterior Bilateral Throughout] Pulse Rate [ From Monitor] Respiratory 20 21 25 H Rate Respiratory Rate [Anterior Bilateral Throughout] Blood Pressure 120/67 120/67 120/67 O2 Sat by Pulse 98 100 100 Oximetry 10/18/20 10/18/20 10/19/20 23:30 23:46 00:00 Temperature Pulse Rate 87 88 76 Pulse Rate [ Anterior Bilateral Throughout] Pulse Rate [ 81 From Monitor] Respiratory 26 H 24 19 Rate Respiratory Rate [Anterior Bilateral Throughout] Blood Pressure 142/87 142/87 122/68 O2 Sat by Pulse 98 100 97 Oximetry 10/19/20 10/19/20 10/19/20 00:05 00:16 00:30 Temperature Pulse Rate 85 90 92 H Pulse Rate [ Anterior Bilateral Throughout] Pulse Rate [ From Monitor] Respiratory 27 H 27 H Rate Respiratory Rate [Anterior Bilateral Throughout] Blood Pressure 122/68 122/68 131/87 O2 Sat by Pulse 99 100 97 Oximetry 10/19/20 10/19/20 10/19/20 00:46 01:00 01:16 Temperature Pulse Rate 75 88 89 Pulse Rate [ Anterior Bilateral Throughout] Pulse Rate [ From Monitor] Respiratory 20 30 H 26 H Rate Respiratory Rate [Anterior Bilateral Throughout] Blood Pressure 122/68 124/71 131/87 O2 Sat by Pulse 100 97 100 Oximetry 10/19/20 10/19/20 10/19/20 01:30 01:46 02:00 Temperature Pulse Rate 89 95 H 89 Pulse Rate [ Anterior Bilateral Throughout] Pulse Rate [ From Monitor] Respiratory 23 29 H 25 H Rate Respiratory Rate [Anterior Bilateral Throughout] Blood Pressure 144/93 144/93 134/85 O2 Sat by Pulse 98 100 98 Oximetry 10/19/20 10/19/20 10/19/20 02:16 02:30 02:46 Temperature Pulse Rate 92 H 89 74 Pulse Rate [ Anterior Bilateral Throughout] Pulse Rate [ From Monitor] Respiratory 25 H 40 H 23 Rate Respiratory Rate [Anterior Bilateral Throughout] Blood Pressure 134/85 139/88 134/85 O2 Sat by Pulse 100 97 100 Oximetry 10/19/20 10/19/20 10/19/20 03:00 03:16 03:21 Temperature 99.4 F Pulse Rate 84 82 Pulse Rate [ Anterior Bilateral Throughout] Pulse Rate [ From Monitor] Respiratory 26 H 21 Rate Respiratory Rate [Anterior Bilateral Throughout] Blood Pressure 130/91 139/88 O2 Sat by Pulse 99 100 Oximetry 10/19/20 10/19/20 10/19/20 03:30 03:46 04:00 Temperature Pulse Rate 89 79 81 Pulse Rate [ Anterior Bilateral Throughout] Pulse Rate [ 86 From Monitor] Respiratory 21 22 28 H Rate Respiratory Rate [Anterior Bilateral Throughout] Blood Pressure 124/91 130/91 148/93 O2 Sat by Pulse 99 100 100 Oximetry 10/19/20 10/19/20 10/19/20 04:16 04:30 04:46 Temperature Pulse Rate 73 74 80 Pulse Rate [ Anterior Bilateral Throughout] Pulse Rate [ From Monitor] Respiratory 22 23 20 Rate Respiratory Rate [Anterior Bilateral Throughout] Blood Pressure 141/93 138/73 138/73 O2 Sat by Pulse 100 98 99 Oximetry 10/19/20 10/19/20 10/19/20 05:00 05:16 05:30 Temperature Pulse Rate 72 84 87 Pulse Rate [ Anterior Bilateral Throughout] Pulse Rate [ From Monitor] Respiratory 20 24 20 Rate Respiratory Rate [Anterior Bilateral Throughout] Blood Pressure 124/74 124/74 148/93 O2 Sat by Pulse 97 100 97 Oximetry 10/19/20 10/19/20 10/19/20 05:37 05:46 06:00 Temperature Pulse Rate 76 74 85 Pulse Rate [ Anterior Bilateral Throughout] Pulse Rate [ From Monitor] Respiratory 20 22 Rate Respiratory Rate [Anterior Bilateral Throughout] Blood Pressure 148/93 148/93 129/77 O2 Sat by Pulse 100 97 Oximetry 10/19/20 10/19/20 10/19/20 06:16 06:30 06:46 Temperature Pulse Rate 90 90 81 Pulse Rate [ Anterior Bilateral Throughout] Pulse Rate [ From Monitor] Respiratory 22 25 H 20 Rate Respiratory Rate [Anterior Bilateral Throughout] Blood Pressure 129/77 136/80 136/80 O2 Sat by Pulse 100 97 99 Oximetry 10/19/20 10/19/20 10/19/20 07:00 07:16 07:30 Temperature Pulse Rate 91 H 90 88 Pulse Rate [ Anterior Bilateral Throughout] Pulse Rate [ From Monitor] Respiratory 25 H 26 H 24 Rate Respiratory Rate [Anterior Bilateral Throughout] Blood Pressure 141/80 141/80 133/85 O2 Sat by Pulse 97 100 98 Oximetry 10/19/20 10/19/20 10/19/20 07:46 08:00 08:15 Temperature 99.8 F H Pulse Rate 91 H 81 89 Pulse Rate [ Anterior Bilateral Throughout] Pulse Rate [ 81 From Monitor] Respiratory 21 18 23 Rate Respiratory Rate [Anterior Bilateral Throughout] Blood Pressure 133/85 133/85 O2 Sat by Pulse 100 96 100 Oximetry 10/19/20 10/19/20 10/19/20 08:18 08:31 08:43 Temperature Pulse Rate 90 88 85 Pulse Rate [ Anterior Bilateral Throughout] Pulse Rate [ From Monitor] Respiratory 25 H Rate Respiratory Rate [Anterior Bilateral Throughout] Blood Pressure 123/69 133/85 O2 Sat by Pulse 100 99 Oximetry 10/19/20 10/19/20 10/19/20 08:45 09:01 09:05 Temperature Pulse Rate 86 79 Pulse Rate [ 87 Anterior Bilateral Throughout] Pulse Rate [ From Monitor] Respiratory 22 20 Rate Respiratory 26 H Rate [Anterior Bilateral Throughout] Blood Pressure 133/85 119/64 O2 Sat by Pulse 100 98 Oximetry 10/19/20 10/19/20 10/19/20 09:15 09:30 09:45 Temperature Pulse Rate 83 84 91 H Pulse Rate [ Anterior Bilateral Throughout] Pulse Rate [ From Monitor] Respiratory 20 22 22 Rate Respiratory Rate [Anterior Bilateral Throughout] Blood Pressure 119/64 128/73 128/73 O2 Sat by Pulse 99 97 100 Oximetry 10/19/20 10/19/20 10/19/20 10:00 10:15 10:30 Temperature Pulse Rate 88 86 86 Pulse Rate [ Anterior Bilateral Throughout] Pulse Rate [ From Monitor] Respiratory 26 H 24 25 H Rate Respiratory Rate [Anterior Bilateral Throughout] Blood Pressure 121/81 121/81 131/78 O2 Sat by Pulse 98 100 97 Oximetry Constitutional: comatose, other (critically ill on ventilator) Eyes: non-icteric ENT: oropharynx moist, other (orally intubated and not sedated) Neck: other (large in cirumference) Effort: normal Ascultation: Bilateral: clear, diminished breath sounds, other (coarse BS bilaterally w/ mild faint wheezes) Percussion: Bilateral: not dull Cardiovascular: regular rate and rhythm, other (no mrg) Gastrointestinal: normoactive bowel sounds, soft, other (post surgical changes with drain on the left side) Extremities: no cyanosis, pink and warm, anasarca Neurologic: other (unresponsive, not following commands, not tracking) Psychiatric: other (unable to assess) CBC and BMP: 10/17/20 04:57 10/15/20 05:50 ABG, PT/INR, D-dimer: ABG ABG pH 7.473 (7.320-7.450) H 10/13/20 07:18 POC ABG pCO2 20.7 mmHg (32.0-48.0) L 10/13/20 07:18 ABG pCO2 25.0 mm Hg 10/10/20 04:42 POC ABG pO2 137.9 mmHg (83-108) H 10/13/20 07:18 ABG pO2 95.2 mm Hg (80.0-90.0) H 10/10/20 04:42 POC ABG HCO3 14.8 10/13/20 07:18 ABG O2 Saturation 97.9 % (95.0-99.0) 10/10/20 04:42 PT/INR, D-dimer PT 13.0 Sec. (12.2-14.9) 10/05/20 05:00 INR 1.00 (0.87-1.13) 10/05/20 05:00 D-Dimer > 26456 ng/mlDDU (0-234) H 10/04/20 10:00 Abnormal lab findings: Abnormal Labs 10/02/20 10/02/20 10/02/20 12:03 12:18 12:18 WBC 14.9 H RBC Hgb 9.1 L Hct MCV MCH 22 L MCHC 28 L RDW 17.6 H Plt Count 102 L Lymph % (Auto) [place] % (Auto) Lymph # (Auto) [place] # (Auto) Seg Neutrophils % Seg Neuts % (Manual) 36.0 L Lymphocytes % (Manual) 49.0 H Monocytes % (Manual) Nucleated RBC % 6.0 H Seg Neutrophils # Seg Neutrophils # Man Lymphocytes # (Manual) 7.3 H Monocytes # (Manual) PT INR APTT Fibrinogen D-Dimer ABG pH POC ABG pCO2 POC ABG pO2 ABG pO2 ABG HCO3 ABG Base Excess ABG Hemoglobin ABG Oxyhemoglobin ABG Sodium ABG Potassium ABG Chloride ABG Glucose VBG pH Oxyhemoglobin Carboxyhemoglobin Sodium 134 L Potassium Chloride Carbon Dioxide 12 L BUN 6 L Creatinine Glucose 390 H POC Glucose 451 H Lactic Acid Calcium Ionized Calcium Magnesium AST 135 H ALT 85 H Alkaline Phosphatase 172 H Lactate Dehydrogenase 641 H NT-Pro-B Natriuret Pep Total Protein 5.4 L Albumin 2.3 L Arterial Blood Glucose Arterial Blood Ionized Calcium Urine WBC (Auto) Phenytoin Crossmatch 10/02/20 10/02/20 10/02/20 12:50 13:05 13:05 WBC 38.6 H RBC Hgb 8.9 L Hct 29.0 L MCV 73 L MCH 22 L MCHC RDW 17.2 H Plt Count Lymph % (Auto) [place] % (Auto) Lymph # (Auto) [place] # (Auto) Seg Neutrophils % Seg Neuts % (Manual) Lymphocytes % (Manual) Monocytes % (Manual) Nucleated RBC % 2.0 H Seg Neutrophils # Seg Neutrophils # Man 20.1 H Lymphocytes # (Manual) 10.4 H Monocytes # (Manual) 2.3 H PT INR APTT Fibrinogen D-Dimer ABG pH POC ABG pCO2 POC ABG pO2 ABG pO2 ABG HCO3 ABG Base Excess ABG Hemoglobin ABG Oxyhemoglobin ABG Sodium ABG Potassium ABG Chloride ABG Glucose VBG pH Oxyhemoglobin Carboxyhemoglobin Sodium Potassium Chloride Carbon Dioxide BUN Creatinine Glucose POC Glucose Lactic Acid Calcium Ionized Calcium Magnesium AST 184 H ALT 113 H Alkaline Phosphatase Lactate Dehydrogenase 769 H NT-Pro-B Natriuret Pep Total Protein Albumin Arterial Blood Glucose Arterial Blood Ionized Calcium Urine WBC (Auto) Phenytoin Crossmatch See Detail 10/02/20 10/02/20 10/02/20 16:25 16:35 16:35 WBC RBC Hgb Hct MCV MCH MCHC RDW Plt Count Lymph % (Auto) [place] % (Auto) Lymph # (Auto) [place] # (Auto) Seg Neutrophils % Seg Neuts % (Manual) Lymphocytes % (Manual) Monocytes % (Manual) Nucleated RBC % Seg Neutrophils # Seg Neutrophils # Man Lymphocytes # (Manual) Monocytes # (Manual) PT INR APTT Fibrinogen D-Dimer ABG pH 7.031 L* POC ABG pCO2 POC ABG pO2 ABG pO2 116.8 H ABG HCO3 12.7 L ABG Base Excess -16.9 L ABG Hemoglobin 7.8 L ABG Oxyhemoglobin ABG Sodium ABG Potassium ABG Chloride ABG Glucose VBG pH Oxyhemoglobin 94.9 L Carboxyhemoglobin Sodium Potassium Chloride Carbon Dioxide BUN Creatinine Glucose 403 H POC Glucose Lactic Acid 11.40 H* Calcium 6.3 L D Ionized Calcium Magnesium AST 70 H ALT Alkaline Phosphatase Lactate Dehydrogenase NT-Pro-B Natriuret Pep Total Protein 1.9 L D Albumin 1.2 L Arterial Blood Glucose Arterial Blood Ionized Calcium Urine WBC (Auto) Phenytoin Crossmatch 10/02/20 10/02/20 10/02/20 18:18 18:18 22:30 WBC 11.5 H RBC 2.06 L Hgb 5.5 L* D Hct 17.3 L* D MCV MCH 27 L MCHC RDW 19.5 H Plt Count 60 L Lymph % (Auto) [place] % (Auto) Lymph # (Auto) [place] # (Auto) Seg Neutrophils % Seg Neuts % (Manual) Lymphocytes % (Manual) 8.0 L Monocytes % (Manual) 8.0 H Nucleated RBC % 8.0 H Seg Neutrophils # Seg Neutrophils # Man Lymphocytes # (Manual) 0.9 L Monocytes # (Manual) 0.9 H PT 37.1 H INR 3.71 H APTT 135.8 H* Fibrinogen D-Dimer ABG pH 7.067 L* POC ABG pCO2 POC ABG pO2 ABG pO2 183.0 H ABG HCO3 14.1 L ABG Base Excess -15.1 L ABG Hemoglobin 7.7 L ABG Oxyhemoglobin ABG Sodium ABG Potassium ABG Chloride ABG Glucose VBG pH Oxyhemoglobin Carboxyhemoglobin Sodium Potassium Chloride Carbon Dioxide BUN Creatinine Glucose POC Glucose Lactic Acid Calcium Ionized Calcium Magnesium AST ALT Alkaline Phosphatase Lactate Dehydrogenase NT-Pro-B Natriuret Pep Total Protein Albumin Arterial Blood Glucose Arterial Blood Ionized Calcium Urine WBC (Auto) Phenytoin Crossmatch 10/02/20 10/02/20 10/03/20 Unknown Unknown 00:01 WBC RBC Hgb Hct MCV MCH MCHC RDW Plt Count Lymph % (Auto) [place] % (Auto) Lymph # (Auto) [place] # (Auto) Seg Neutrophils % Seg Neuts % (Manual) Lymphocytes % (Manual) Monocytes % (Manual) Nucleated RBC % Seg Neutrophils # Seg Neutrophils # Man Lymphocytes # (Manual) Monocytes # (Manual) PT 61.1 H INR 6.92 H* APTT 158.7 H* Fibrinogen < 60 L* D-Dimer > 91031 H ABG pH POC ABG pCO2 POC ABG pO2 ABG pO2 ABG HCO3 ABG Base Excess ABG Hemoglobin ABG Oxyhemoglobin ABG Sodium ABG Potassium ABG Chloride ABG Glucose VBG pH 6.949 L* Oxyhemoglobin Carboxyhemoglobin Sodium Potassium Chloride Carbon Dioxide BUN Creatinine Glucose POC Glucose 196 H Lactic Acid Calcium Ionized Calcium Magnesium AST ALT Alkaline Phosphatase Lactate Dehydrogenase NT-Pro-B Natriuret Pep Total Protein Albumin Arterial Blood Glucose Arterial Blood Ionized Calcium Urine WBC (Auto) Phenytoin Crossmatch 10/03/20 10/03/20 10/03/20 00:40 00:40 00:40 WBC RBC Hgb Hct MCV MCH MCHC RDW Plt Count Lymph % (Auto) [place] % (Auto) Lymph # (Auto) [place] # (Auto) Seg Neutrophils % Seg Neuts % (Manual) Lymphocytes % (Manual) Monocytes % (Manual) Nucleated RBC % Seg Neutrophils # Seg Neutrophils # Man Lymphocytes # (Manual) Monocytes # (Manual) PT 15.1 H INR 1.21 H APTT Fibrinogen D-Dimer ABG pH POC ABG pCO2 POC ABG pO2 ABG pO2 ABG HCO3 ABG Base Excess ABG Hemoglobin ABG Oxyhemoglobin ABG Sodium ABG Potassium ABG Chloride ABG Glucose VBG pH Oxyhemoglobin Carboxyhemoglobin Sodium 136 L Potassium Chloride Carbon Dioxide BUN Creatinine 1.6 H D Glucose 106 H POC Glucose Lactic Acid 5.60 H* Calcium 6.5 L Ionized Calcium Magnesium AST 232 H ALT 104 H Alkaline Phosphatase Lactate Dehydrogenase NT-Pro-B Natriuret Pep Total Protein 3.9 L D Albumin 2.4 L Arterial Blood Glucose Arterial Blood Ionized Calcium Urine WBC (Auto) Phenytoin Crossmatch 10/03/20 10/03/20 10/03/20 02:08 02:08 02:08 WBC 17.6 H RBC 3.27 L Hgb 9.9 L D Hct 29.9 L D MCV MCH MCHC RDW 16.5 H Plt Count 75 L Lymph % (Auto) [place] % (Auto) Lymph # (Auto) [place] # (Auto) Seg Neutrophils % Seg Neuts % (Manual) 76.0 H Lymphocytes % (Manual) Monocytes % (Manual) Nucleated RBC % 8.0 H Seg Neutrophils # Seg Neutrophils # Man 13.4 H Lymphocytes # (Manual) Monocytes # (Manual) PT INR APTT Fibrinogen D-Dimer ABG pH POC ABG pCO2 POC ABG pO2 ABG pO2 ABG HCO3 ABG Base Excess ABG Hemoglobin ABG Oxyhemoglobin ABG Sodium ABG Potassium ABG Chloride ABG Glucose VBG pH Oxyhemoglobin Carboxyhemoglobin Sodium Potassium Chloride Carbon Dioxide 19 L BUN Creatinine 1.4 H Glucose 306 H POC Glucose Lactic Acid 10.50 H* Calcium 6.4 L Ionized Calcium Magnesium AST ALT Alkaline Phosphatase Lactate Dehydrogenase NT-Pro-B Natriuret Pep Total Protein Albumin Arterial Blood Glucose Arterial Blood Ionized Calcium Urine WBC (Auto) Phenytoin Crossmatch 10/03/20 10/03/20 10/03/20 02:42 03:59 05:31 WBC RBC Hgb Hct MCV MCH MCHC RDW Plt Count Lymph % (Auto) [place] % (Auto) Lymph # (Auto) [place] # (Auto) Seg Neutrophils % Seg Neuts % (Manual) Lymphocytes % (Manual) Monocytes % (Manual) Nucleated RBC % Seg Neutrophils # Seg Neutrophils # Man Lymphocytes # (Manual) Monocytes # (Manual) PT INR APTT Fibrinogen D-Dimer ABG pH 7.144 L POC ABG pCO2 54.4 H POC ABG pO2 ABG pO2 ABG HCO3 ABG Base Excess ABG Hemoglobin 10.0 L ABG Oxyhemoglobin ABG Sodium ABG Potassium ABG Chloride 108.0 H ABG Glucose 306 H VBG pH Oxyhemoglobin Carboxyhemoglobin Sodium Potassium Chloride Carbon Dioxide BUN Creatinine Glucose POC Glucose 209 H Lactic Acid 9.20 H* Calcium Ionized Calcium Magnesium AST ALT Alkaline Phosphatase Lactate Dehydrogenase NT-Pro-B Natriuret Pep Total Protein Albumin Arterial Blood Glucose 306 H Arterial Blood Ionized Calcium 3.7 L Urine WBC (Auto) Phenytoin Crossmatch 10/03/20 10/03/20 10/03/20 09:00 09:00 09:00 WBC 27.4 H RBC 2.84 L Hgb 8.5 L Hct 25.1 L MCV MCH MCHC RDW 16.1 H Plt Count 72 L Lymph % (Auto) [place] % (Auto) Lymph # (Auto) [place] # (Auto) Seg Neutrophils % Seg Neuts % (Manual) Lymphocytes % (Manual) 11.0 L Monocytes % (Manual) Nucleated RBC % 3.0 H Seg Neutrophils # Seg Neutrophils # Man 18.4 H Lymphocytes # (Manual) Monocytes # (Manual) 1.9 H PT INR APTT Fibrinogen D-Dimer ABG pH POC ABG pCO2 POC ABG pO2 ABG pO2 ABG HCO3 ABG Base Excess ABG Hemoglobin ABG Oxyhemoglobin ABG Sodium ABG Potassium ABG Chloride ABG Glucose VBG pH Oxyhemoglobin Carboxyhemoglobin Sodium Potassium Chloride Carbon Dioxide BUN Creatinine 1.7 H Glucose 216 H POC Glucose Lactic Acid 9.20 H* Calcium 6.3 L Ionized Calcium Magnesium AST 331 H ALT 171 H Alkaline Phosphatase Lactate Dehydrogenase NT-Pro-B Natriuret Pep Total Protein 3.7 L Albumin 1.9 L Arterial Blood Glucose Arterial Blood Ionized Calcium Urine WBC (Auto) Phenytoin Crossmatch 10/03/20 10/03/20 10/03/20 11:20 11:46 11:50 WBC 28.7 H RBC 2.67 L Hgb 8.0 L Hct 23.7 L MCV MCH MCHC RDW 16.6 H Plt Count 76 L Lymph % (Auto) [place] % (Auto) Lymph # (Auto) [place] # (Auto) Seg Neutrophils % Seg Neuts % (Manual) Lymphocytes % (Manual) Monocytes % (Manual) Nucleated RBC % Seg Neutrophils # Seg Neutrophils # Man Lymphocytes # (Manual) Monocytes # (Manual) PT INR APTT Fibrinogen D-Dimer ABG pH POC ABG pCO2 POC ABG pO2 ABG pO2 ABG HCO3 ABG Base Excess ABG Hemoglobin ABG Oxyhemoglobin ABG Sodium ABG Potassium ABG Chloride ABG Glucose VBG pH Oxyhemoglobin Carboxyhemoglobin Sodium Potassium Chloride Carbon Dioxide BUN Creatinine Glucose POC Glucose 125 H Lactic Acid 8.00 H* Calcium Ionized Calcium Magnesium AST ALT Alkaline Phosphatase Lactate Dehydrogenase NT-Pro-B Natriuret Pep Total Protein Albumin Arterial Blood Glucose Arterial Blood Ionized Calcium Urine WBC (Auto) Phenytoin Crossmatch 10/03/20 10/04/20 10/04/20 11:50 00:40 00:40 WBC RBC Hgb 6.8 L Hct 19.4 L* MCV MCH MCHC RDW Plt Count 49 L Lymph % (Auto) [place] % (Auto) Lymph # (Auto) [place] # (Auto) Seg Neutrophils % Seg Neuts % (Manual) Lymphocytes % (Manual) Monocytes % (Manual) Nucleated RBC % Seg Neutrophils # Seg Neutrophils # Man Lymphocytes # (Manual) Monocytes # (Manual) PT INR APTT Fibrinogen D-Dimer ABG pH 7.244 L POC ABG pCO2 POC ABG pO2 ABG pO2 ABG HCO3 ABG Base Excess -4.5 L ABG Hemoglobin 7.3 L ABG Oxyhemoglobin ABG Sodium ABG Potassium ABG Chloride ABG Glucose VBG pH Oxyhemoglobin Carboxyhemoglobin Sodium Potassium Chloride Carbon Dioxide BUN Creatinine Glucose POC Glucose Lactic Acid Calcium Ionized Calcium Magnesium AST ALT Alkaline Phosphatase Lactate Dehydrogenase NT-Pro-B Natriuret Pep Total Protein Albumin Arterial Blood Glucose Arterial Blood Ionized Calcium Urine WBC (Auto) Phenytoin Crossmatch 10/04/20 10/04/20 10/04/20 03:53 10:00 10:00 WBC 14.6 H RBC 2.57 L Hgb 7.6 L Hct 22.5 L MCV MCH MCHC RDW 15.8 H Plt Count 38 L Lymph % (Auto) 7.7 L [place] % (Auto) Lymph # (Auto) 1.1 L [place] # (Auto) 0.9 H Seg Neutrophils % 85.6 H Seg Neuts % (Manual) Lymphocytes % (Manual) Monocytes % (Manual) Nucleated RBC % Seg Neutrophils # 12.5 H Seg Neutrophils # Man Lymphocytes # (Manual) Monocytes # (Manual) PT INR APTT Fibrinogen D-Dimer ABG pH POC ABG pCO2 POC ABG pO2 110.6 H ABG pO2 ABG HCO3 ABG Base Excess ABG Hemoglobin 6.7 L ABG Oxyhemoglobin ABG Sodium 132.0 L ABG Potassium ABG Chloride ABG Glucose 111 H VBG pH Oxyhemoglobin Carboxyhemoglobin Sodium 134 L D Potassium Chloride 97.6 L Carbon Dioxide BUN Creatinine 1.7 H Glucose POC Glucose Lactic Acid Calcium 6.3 L Ionized Calcium Magnesium AST 203 H ALT 81 H Alkaline Phosphatase Lactate Dehydrogenase NT-Pro-B Natriuret Pep Total Protein 3.9 L Albumin 2.3 L Arterial Blood Glucose 111 H Arterial Blood Ionized Calcium 3.5 L Urine WBC (Auto) Phenytoin Crossmatch 10/04/20 10/04/20 10/04/20 10:00 10:00 10:14 WBC RBC Hgb Hct MCV MCH MCHC RDW Plt Count Lymph % (Auto) [place] % (Auto) Lymph # (Auto) [place] # (Auto) Seg Neutrophils % Seg Neuts % (Manual) Lymphocytes % (Manual) Monocytes % (Manual) Nucleated RBC % Seg Neutrophils # Seg Neutrophils # Man Lymphocytes # (Manual) Monocytes # (Manual) PT INR APTT Fibrinogen D-Dimer > 64794 H ABG pH POC ABG pCO2 POC ABG pO2 ABG pO2 ABG HCO3 ABG Base Excess ABG Hemoglobin ABG Oxyhemoglobin ABG Sodium ABG Potassium ABG Chloride ABG Glucose VBG pH Oxyhemoglobin Carboxyhemoglobin Sodium Potassium Chloride Carbon Dioxide BUN Creatinine Glucose POC Glucose Lactic Acid 3.90 H* Calcium Ionized Calcium Magnesium AST ALT Alkaline Phosphatase Lactate Dehydrogenase NT-Pro-B Natriuret Pep 2788 H Total Protein Albumin Arterial Blood Glucose Arterial Blood Ionized Calcium Urine WBC (Auto) Phenytoin Crossmatch 10/04/20 10/04/20 10/04/20 14:00 14:00 18:00 WBC 15.7 H RBC 3.17 L Hgb 9.3 L 9.6 L Hct 27.2 L 28.0 L MCV MCH MCHC RDW 16.9 H Plt Count 41 L Lymph % (Auto) 8.6 L [place] % (Auto) Lymph # (Auto) [place] # (Auto) 0.9 H Seg Neutrophils % 85.4 H Seg Neuts % (Manual) Lymphocytes % (Manual) Monocytes % (Manual) Nucleated RBC % Seg Neutrophils # 13.4 H Seg Neutrophils # Man Lymphocytes # (Manual) Monocytes # (Manual) PT INR APTT Fibrinogen D-Dimer ABG pH POC ABG pCO2 POC ABG pO2 ABG pO2 ABG HCO3 ABG Base Excess ABG Hemoglobin ABG Oxyhemoglobin ABG Sodium ABG Potassium ABG Chloride ABG Glucose VBG pH Oxyhemoglobin Carboxyhemoglobin Sodium 133 L Potassium Chloride 96.4 L Carbon Dioxide BUN 18 H Creatinine 1.7 H Glucose POC Glucose Lactic Acid Calcium 6.3 L Ionized Calcium Magnesium AST ALT Alkaline Phosphatase Lactate Dehydrogenase NT-Pro-B Natriuret Pep Total Protein Albumin Arterial Blood Glucose Arterial Blood Ionized Calcium Urine WBC (Auto) Phenytoin Crossmatch 10/04/20 10/04/20 10/05/20 18:00 22:00 05:00 WBC 17.6 H RBC 3.34 L Hgb 9.9 L Hct 29.4 L MCV MCH MCHC RDW 17.1 H Plt Count 56 L Lymph % (Auto) 8.5 L [place] % (Auto) Lymph # (Auto) [place] # (Auto) 1.0 H Seg Neutrophils % 85.1 H Seg Neuts % (Manual) Lymphocytes % (Manual) Monocytes % (Manual) Nucleated RBC % Seg Neutrophils # 15.0 H Seg Neutrophils # Man Lymphocytes # (Manual) Monocytes # (Manual) PT INR APTT Fibrinogen D-Dimer ABG pH POC ABG pCO2 POC ABG pO2 ABG pO2 ABG HCO3 ABG Base Excess ABG Hemoglobin ABG Oxyhemoglobin ABG Sodium ABG Potassium ABG Chloride ABG Glucose VBG pH Oxyhemoglobin Carboxyhemoglobin Sodium 136 L Potassium Chloride Carbon Dioxide BUN 18 H Creatinine 1.7 H Glucose POC Glucose Lactic Acid 2.30 H* Calcium 6.6 L Ionized Calcium Magnesium AST ALT Alkaline Phosphatase Lactate Dehydrogenase NT-Pro-B Natriuret Pep Total Protein Albumin Arterial Blood Glucose Arterial Blood Ionized Calcium Urine WBC (Auto) Phenytoin Crossmatch 10/05/20 10/05/20 10/05/20 05:00 05:00 05:03 WBC RBC Hgb Hct MCV MCH MCHC RDW Plt Count Lymph % (Auto) [place] % (Auto) Lymph # (Auto) [place] # (Auto) Seg Neutrophils % Seg Neuts % (Manual) Lymphocytes % (Manual) Monocytes % (Manual) Nucleated RBC % Seg Neutrophils # Seg Neutrophils # Man Lymphocytes # (Manual) Monocytes # (Manual) PT INR APTT Fibrinogen D-Dimer ABG pH 7.458 H POC ABG pCO2 POC ABG pO2 ABG pO2 74.3 L ABG HCO3 27.5 H ABG Base Excess 3.4 H ABG Hemoglobin 10.0 L ABG Oxyhemoglobin ABG Sodium ABG Potassium ABG Chloride ABG Glucose VBG pH Oxyhemoglobin 94.9 L Carboxyhemoglobin Sodium Potassium Chloride Carbon Dioxide BUN 19 H Creatinine 1.8 H Glucose POC Glucose Lactic Acid Calcium 6.8 L Ionized Calcium 3.9 L Magnesium AST 225 H ALT 85 H Alkaline Phosphatase Lactate Dehydrogenase NT-Pro-B Natriuret Pep Total Protein 4.5 L Albumin 2.7 L Arterial Blood Glucose Arterial Blood Ionized Calcium Urine WBC (Auto) Phenytoin Crossmatch 10/05/20 10/05/20 10/05/20 10:10 15:00 19:40 WBC RBC Hgb Hct MCV MCH MCHC RDW Plt Count Lymph % (Auto) [place] % (Auto) Lymph # (Auto) [place] # (Auto) Seg Neutrophils % Seg Neuts % (Manual) Lymphocytes % (Manual) Monocytes % (Manual) Nucleated RBC % Seg Neutrophils # Seg Neutrophils # Man Lymphocytes # (Manual) Monocytes # (Manual) PT INR APTT Fibrinogen D-Dimer ABG pH POC ABG pCO2 POC ABG pO2 ABG pO2 ABG HCO3 ABG Base Excess ABG Hemoglobin ABG Oxyhemoglobin ABG Sodium ABG Potassium ABG Chloride ABG Glucose VBG pH Oxyhemoglobin Carboxyhemoglobin Sodium Potassium 3.5 L Chloride Carbon Dioxide 31 H 32 H BUN 19 H 19 H Creatinine 1.8 H 1.8 H Glucose POC Glucose Lactic Acid Calcium 7.0 L 7.2 L Ionized Calcium Magnesium 2.90 H AST ALT Alkaline Phosphatase Lactate Dehydrogenase NT-Pro-B Natriuret Pep Total Protein Albumin Arterial Blood Glucose Arterial Blood Ionized Calcium Urine WBC (Auto) Phenytoin Crossmatch 10/06/20 10/06/20 10/06/20 01:05 03:12 04:00 WBC 17.1 H RBC 3.47 L Hgb Hct MCV MCH MCHC RDW 17.4 H Plt Count 82 L Lymph % (Auto) 8.3 L [place] % (Auto) Lymph # (Auto) [place] # (Auto) 1.1 H Seg Neutrophils % 83.8 H Seg Neuts % (Manual) Lymphocytes % (Manual) Monocytes % (Manual) Nucleated RBC % Seg Neutrophils # 14.3 H Seg Neutrophils # Man Lymphocytes # (Manual) Monocytes # (Manual) PT INR APTT Fibrinogen D-Dimer ABG pH 7.474 H POC ABG pCO2 POC ABG pO2 129.5 H ABG pO2 ABG HCO3 ABG Base Excess ABG Hemoglobin 11.4 L ABG Oxyhemoglobin ABG Sodium 131.8 L ABG Potassium ABG Chloride ABG Glucose 103 H VBG pH Oxyhemoglobin Carboxyhemoglobin 0.3 L Sodium Potassium Chloride Carbon Dioxide BUN Creatinine Glucose POC Glucose Lactic Acid Calcium Ionized Calcium Magnesium 3.70 H AST ALT Alkaline Phosphatase Lactate Dehydrogenase NT-Pro-B Natriuret Pep Total Protein Albumin Arterial Blood Glucose 103 H Arterial Blood Ionized Calcium 4.2 L Urine WBC (Auto) Phenytoin Crossmatch 10/06/20 10/06/20 10/06/20 04:00 05:31 08:12 WBC RBC Hgb Hct MCV MCH MCHC RDW Plt Count Lymph % (Auto) [place] % (Auto) Lymph # (Auto) [place] # (Auto) Seg Neutrophils % Seg Neuts % (Manual) Lymphocytes % (Manual) Monocytes % (Manual) Nucleated RBC % Seg Neutrophils # Seg Neutrophils # Man Lymphocytes # (Manual) Monocytes # (Manual) PT INR APTT Fibrinogen D-Dimer ABG pH POC ABG pCO2 POC ABG pO2 ABG pO2 ABG HCO3 ABG Base Excess ABG Hemoglobin ABG Oxyhemoglobin ABG Sodium ABG Potassium ABG Chloride ABG Glucose VBG pH Oxyhemoglobin Carboxyhemoglobin Sodium Potassium 3.5 L Chloride Carbon Dioxide BUN 19 H Creatinine 1.8 H Glucose 102 H POC Glucose 116 H Lactic Acid Calcium 7.2 L Ionized Calcium Magnesium 5.40 H AST 307 H ALT 137 H Alkaline Phosphatase Lactate Dehydrogenase NT-Pro-B Natriuret Pep Total Protein 4.5 L Albumin 2.6 L Arterial Blood Glucose Arterial Blood Ionized Calcium Urine WBC (Auto) Phenytoin Crossmatch 10/06/20 10/06/20 10/06/20 11:00 11:50 20:13 WBC RBC Hgb Hct MCV MCH MCHC RDW Plt Count Lymph % (Auto) [place] % (Auto) Lymph # (Auto) [place] # (Auto) Seg Neutrophils % Seg Neuts % (Manual) Lymphocytes % (Manual) Monocytes % (Manual) Nucleated RBC % Seg Neutrophils # Seg Neutrophils # Man Lymphocytes # (Manual) Monocytes # (Manual) PT INR APTT Fibrinogen D-Dimer ABG pH POC ABG pCO2 POC ABG pO2 ABG pO2 ABG HCO3 ABG Base Excess ABG Hemoglobin ABG Oxyhemoglobin ABG Sodium ABG Potassium ABG Chloride ABG Glucose VBG pH Oxyhemoglobin Carboxyhemoglobin Sodium Potassium Chloride Carbon Dioxide BUN Creatinine Glucose POC Glucose 106 H Lactic Acid Calcium Ionized Calcium Magnesium 6.50 H 6.20 H AST ALT Alkaline Phosphatase Lactate Dehydrogenase NT-Pro-B Natriuret Pep Total Protein Albumin Arterial Blood Glucose Arterial Blood Ionized Calcium Urine WBC (Auto) Phenytoin Crossmatch 10/06/20 10/06/20 10/06/20 20:17 22:29 23:57 WBC RBC Hgb Hct MCV MCH MCHC RDW Plt Count Lymph % (Auto) [place] % (Auto) Lymph # (Auto) [place] # (Auto) Seg Neutrophils % Seg Neuts % (Manual) Lymphocytes % (Manual) Monocytes % (Manual) Nucleated RBC % Seg Neutrophils # Seg Neutrophils # Man Lymphocytes # (Manual) Monocytes # (Manual) PT INR APTT Fibrinogen D-Dimer ABG pH POC ABG pCO2 POC ABG pO2 ABG pO2 ABG HCO3 ABG Base Excess ABG Hemoglobin ABG Oxyhemoglobin ABG Sodium ABG Potassium ABG Chloride ABG Glucose VBG pH Oxyhemoglobin Carboxyhemoglobin Sodium Potassium Chloride Carbon Dioxide BUN Creatinine Glucose POC Glucose 112 H 126 H 133 H Lactic Acid Calcium Ionized Calcium Magnesium AST ALT Alkaline Phosphatase Lactate Dehydrogenase NT-Pro-B Natriuret Pep Total Protein Albumin Arterial Blood Glucose Arterial Blood Ionized Calcium Urine WBC (Auto) Phenytoin Crossmatch 10/07/20 10/07/20 10/07/20 00:35 02:22 03:16 WBC RBC Hgb Hct MCV MCH MCHC RDW Plt Count Lymph % (Auto) [place] % (Auto) Lymph # (Auto) [place] # (Auto) Seg Neutrophils % Seg Neuts % (Manual) Lymphocytes % (Manual) Monocytes % (Manual) Nucleated RBC % Seg Neutrophils # Seg Neutrophils # Man Lymphocytes # (Manual) Monocytes # (Manual) PT INR APTT Fibrinogen D-Dimer ABG pH POC ABG pCO2 POC ABG pO2 ABG pO2 ABG HCO3 ABG Base Excess ABG Hemoglobin 11.6 L ABG Oxyhemoglobin ABG Sodium ABG Potassium ABG Chloride ABG Glucose 156 H VBG pH Oxyhemoglobin Carboxyhemoglobin 0.3 L Sodium Potassium Chloride Carbon Dioxide BUN Creatinine Glucose POC Glucose 124 H Lactic Acid Calcium Ionized Calcium Magnesium 5.90 H AST ALT Alkaline Phosphatase Lactate Dehydrogenase NT-Pro-B Natriuret Pep Total Protein Albumin Arterial Blood Glucose 156 H Arterial Blood Ionized Calcium 4.2 L Urine WBC (Auto) Phenytoin Crossmatch 10/07/20 10/07/20 10/07/20 04:06 05:45 07:05 WBC 19.2 H RBC 3.57 L Hgb Hct MCV MCH MCHC 35 H RDW 17.1 H Plt Count 129 L Lymph % (Auto) [place] % (Auto) Lymph # (Auto) [place] # (Auto) Seg Neutrophils % Seg Neuts % (Manual) 94.0 H Lymphocytes % (Manual) 6.0 L Monocytes % (Manual) Nucleated RBC % Seg Neutrophils # Seg Neutrophils # Man 18.0 H Lymphocytes # (Manual) Monocytes # (Manual) PT INR APTT Fibrinogen D-Dimer ABG pH POC ABG pCO2 POC ABG pO2 ABG pO2 ABG HCO3 ABG Base Excess ABG Hemoglobin ABG Oxyhemoglobin ABG Sodium ABG Potassium ABG Chloride ABG Glucose VBG pH Oxyhemoglobin Carboxyhemoglobin Sodium Potassium Chloride Carbon Dioxide BUN Creatinine Glucose POC Glucose 135 H 149 H Lactic Acid Calcium Ionized Calcium Magnesium AST ALT Alkaline Phosphatase Lactate Dehydrogenase NT-Pro-B Natriuret Pep Total Protein Albumin Arterial Blood Glucose Arterial Blood Ionized Calcium Urine WBC (Auto) Phenytoin Crossmatch 10/07/20 10/07/20 10/07/20 07:05 07:05 12:21 WBC RBC Hgb Hct MCV MCH MCHC RDW Plt Count Lymph % (Auto) [place] % (Auto) Lymph # (Auto) [place] # (Auto) Seg Neutrophils % Seg Neuts % (Manual) Lymphocytes % (Manual) Monocytes % (Manual) Nucleated RBC % Seg Neutrophils # Seg Neutrophils # Man Lymphocytes # (Manual) Monocytes # (Manual) PT INR APTT Fibrinogen D-Dimer ABG pH POC ABG pCO2 POC ABG pO2 ABG pO2 ABG HCO3 ABG Base Excess ABG Hemoglobin ABG Oxyhemoglobin ABG Sodium ABG Potassium ABG Chloride ABG Glucose VBG pH Oxyhemoglobin Carboxyhemoglobin Sodium Potassium Chloride Carbon Dioxide BUN 21 H Creatinine 1.7 H Glucose 171 H POC Glucose 124 H Lactic Acid Calcium 7.4 L Ionized Calcium Magnesium 6.10 H AST 245 H ALT 147 H Alkaline Phosphatase Lactate Dehydrogenase NT-Pro-B Natriuret Pep Total Protein 5.3 L Albumin 2.8 L Arterial Blood Glucose Arterial Blood Ionized Calcium Urine WBC (Auto) Phenytoin Crossmatch 10/07/20 10/07/20 10/07/20 19:52 21:00 21:50 WBC RBC Hgb Hct MCV MCH MCHC RDW Plt Count Lymph % (Auto) [place] % (Auto) Lymph # (Auto) [place] # (Auto) Seg Neutrophils % Seg Neuts % (Manual) Lymphocytes % (Manual) Monocytes % (Manual) Nucleated RBC % Seg Neutrophils # Seg Neutrophils # Man Lymphocytes # (Manual) Monocytes # (Manual) PT INR APTT Fibrinogen D-Dimer ABG pH POC ABG pCO2 POC ABG pO2 ABG pO2 ABG HCO3 ABG Base Excess ABG Hemoglobin ABG Oxyhemoglobin ABG Sodium ABG Potassium ABG Chloride ABG Glucose VBG pH Oxyhemoglobin Carboxyhemoglobin Sodium Potassium Chloride Carbon Dioxide BUN Creatinine Glucose POC Glucose 193 H 138 H Lactic Acid Calcium Ionized Calcium 4.4 L Magnesium AST ALT Alkaline Phosphatase Lactate Dehydrogenase NT-Pro-B Natriuret Pep Total Protein Albumin Arterial Blood Glucose Arterial Blood Ionized Calcium Urine WBC (Auto) Phenytoin Crossmatch 10/07/20 10/08/20 10/08/20 23:41 04:20 05:30 WBC RBC Hgb Hct MCV MCH MCHC RDW Plt Count Lymph % (Auto) [place] % (Auto) Lymph # (Auto) [place] # (Auto) Seg Neutrophils % Seg Neuts % (Manual) Lymphocytes % (Manual) Monocytes % (Manual) Nucleated RBC % Seg Neutrophils # Seg Neutrophils # Man Lymphocytes # (Manual) Monocytes # (Manual) PT INR APTT Fibrinogen D-Dimer ABG pH 7.467 H POC ABG pCO2 POC ABG pO2 189.8 H ABG pO2 ABG HCO3 ABG Base Excess ABG Hemoglobin 10.8 L ABG Oxyhemoglobin ABG Sodium ABG Potassium ABG Chloride ABG Glucose 133 H VBG pH Oxyhemoglobin Carboxyhemoglobin Sodium Potassium Chloride Carbon Dioxide BUN Creatinine Glucose POC Glucose 118 H 114 H Lactic Acid Calcium Ionized Calcium Magnesium AST ALT Alkaline Phosphatase Lactate Dehydrogenase NT-Pro-B Natriuret Pep Total Protein Albumin Arterial Blood Glucose 133 H Arterial Blood Ionized Calcium 4.2 L Urine WBC (Auto) Phenytoin Crossmatch 10/08/20 10/08/20 10/08/20 05:43 06:42 06:42 WBC 23.6 H RBC 3.54 L Hgb Hct MCV MCH MCHC RDW 17.8 H Plt Count Lymph % (Auto) [place] % (Auto) Lymph # (Auto) [place] # (Auto) Seg Neutrophils % Seg Neuts % (Manual) 93.0 H Lymphocytes % (Manual) 3.0 L Monocytes % (Manual) Nucleated RBC % 1.0 H Seg Neutrophils # Seg Neutrophils # Man 21.9 H Lymphocytes # (Manual) 0.7 L Monocytes # (Manual) 0.9 H PT INR APTT Fibrinogen D-Dimer ABG pH POC ABG pCO2 POC ABG pO2 ABG pO2 ABG HCO3 ABG Base Excess ABG Hemoglobin ABG Oxyhemoglobin ABG Sodium ABG Potassium ABG Chloride ABG Glucose VBG pH Oxyhemoglobin Carboxyhemoglobin Sodium Potassium Chloride Carbon Dioxide BUN 28 H Creatinine 1.6 H Glucose 141 H POC Glucose 126 H Lactic Acid Calcium 7.6 L Ionized Calcium Magnesium AST 162 H ALT 103 H Alkaline Phosphatase Lactate Dehydrogenase NT-Pro-B Natriuret Pep Total Protein 5.4 L Albumin 2.7 L Arterial Blood Glucose Arterial Blood Ionized Calcium Urine WBC (Auto) Phenytoin Crossmatch 10/08/20 10/08/20 10/08/20 11:20 16:05 20:14 WBC RBC Hgb Hct MCV MCH MCHC RDW Plt Count Lymph % (Auto) [place] % (Auto) Lymph # (Auto) [place] # (Auto) Seg Neutrophils % Seg Neuts % (Manual) Lymphocytes % (Manual) Monocytes % (Manual) Nucleated RBC % Seg Neutrophils # Seg Neutrophils # Man Lymphocytes # (Manual) Monocytes # (Manual) PT INR APTT Fibrinogen D-Dimer ABG pH POC ABG pCO2 POC ABG pO2 ABG pO2 ABG HCO3 ABG Base Excess ABG Hemoglobin ABG Oxyhemoglobin ABG Sodium ABG Potassium ABG Chloride ABG Glucose VBG pH Oxyhemoglobin Carboxyhemoglobin Sodium Potassium Chloride Carbon Dioxide BUN Creatinine Glucose POC Glucose 127 H 172 H 147 H Lactic Acid Calcium Ionized Calcium Magnesium AST ALT Alkaline Phosphatase Lactate Dehydrogenase NT-Pro-B Natriuret Pep Total Protein Albumin Arterial Blood Glucose Arterial Blood Ionized Calcium Urine WBC (Auto) Phenytoin Crossmatch 10/08/20 10/08/20 10/09/20 21:27 23:24 02:10 WBC RBC Hgb Hct MCV MCH MCHC RDW Plt Count Lymph % (Auto) [place] % (Auto) Lymph # (Auto) [place] # (Auto) Seg Neutrophils % Seg Neuts % (Manual) Lymphocytes % (Manual) Monocytes % (Manual) Nucleated RBC % Seg Neutrophils # Seg Neutrophils # Man Lymphocytes # (Manual) Monocytes # (Manual) PT INR APTT Fibrinogen D-Dimer ABG pH POC ABG pCO2 POC ABG pO2 ABG pO2 ABG HCO3 ABG Base Excess ABG Hemoglobin ABG Oxyhemoglobin ABG Sodium ABG Potassium ABG Chloride ABG Glucose VBG pH Oxyhemoglobin Carboxyhemoglobin Sodium Potassium Chloride Carbon Dioxide BUN Creatinine Glucose POC Glucose 140 H 135 H 111 H Lactic Acid Calcium Ionized Calcium Magnesium AST ALT Alkaline Phosphatase Lactate Dehydrogenase NT-Pro-B Natriuret Pep Total Protein Albumin Arterial Blood Glucose Arterial Blood Ionized Calcium Urine WBC (Auto) Phenytoin Crossmatch 10/09/20 10/09/20 10/09/20 03:44 04:39 05:46 WBC 19.7 H RBC 3.51 L Hgb Hct MCV MCH MCHC RDW 17.7 H Plt Count Lymph % (Auto) [place] % (Auto) Lymph # (Auto) [place] # (Auto) Seg Neutrophils % Seg Neuts % (Manual) 86.0 H Lymphocytes % (Manual) 4.0 L Monocytes % (Manual) 9.0 H Nucleated RBC % Seg Neutrophils # Seg Neutrophils # Man 16.9 H Lymphocytes # (Manual) 0.8 L Monocytes # (Manual) 1.8 H PT INR APTT Fibrinogen D-Dimer ABG pH 7.513 H POC ABG pCO2 POC ABG pO2 33.6 L ABG pO2 ABG HCO3 ABG Base Excess ABG Hemoglobin 11.1 L ABG Oxyhemoglobin 70.2 L ABG Sodium ABG Potassium 3.2 L ABG Chloride 108.0 H ABG Glucose 108 H VBG pH Oxyhemoglobin Carboxyhemoglobin Sodium Potassium Chloride Carbon Dioxide BUN Creatinine Glucose POC Glucose 109 H Lactic Acid Calcium Ionized Calcium Magnesium AST ALT Alkaline Phosphatase Lactate Dehydrogenase NT-Pro-B Natriuret Pep Total Protein Albumin Arterial Blood Glucose 108 H Arterial Blood Ionized Calcium 4.3 L Urine WBC (Auto) Phenytoin Crossmatch 10/09/20 10/10/20 10/10/20 05:46 04:00 04:00 WBC 18.4 H RBC Hgb Hct MCV MCH MCHC RDW 17.5 H Plt Count Lymph % (Auto) 9.8 L [place] % (Auto) 8.8 H Lymph # (Auto) [place] # (Auto) 1.6 H Seg Neutrophils % 80.0 H Seg Neuts % (Manual) Lymphocytes % (Manual) Monocytes % (Manual) Nucleated RBC % Seg Neutrophils # 14.7 H Seg Neutrophils # Man Lymphocytes # (Manual) Monocytes # (Manual) PT INR APTT Fibrinogen D-Dimer ABG pH POC ABG pCO2 POC ABG pO2 ABG pO2 ABG HCO3 ABG Base Excess ABG Hemoglobin ABG Oxyhemoglobin ABG Sodium ABG Potassium ABG Chloride ABG Glucose VBG pH Oxyhemoglobin Carboxyhemoglobin Sodium 146 H Potassium 3.2 L 2.9 L* Chloride 108.9 H 112.6 H Carbon Dioxide BUN 34 H 28 H Creatinine 1.4 H 1.3 H Glucose 109 H 101 H POC Glucose Lactic Acid Calcium 7.6 L 7.8 L Ionized Calcium Magnesium AST 137 H 122 H ALT 99 H 81 H Alkaline Phosphatase Lactate Dehydrogenase NT-Pro-B Natriuret Pep Total Protein 5.1 L 5.2 L Albumin 2.6 L 2.7 L Arterial Blood Glucose Arterial Blood Ionized Calcium Urine WBC (Auto) Phenytoin Crossmatch 10/10/20 10/10/20 10/11/20 04:42 09:50 00:44 WBC RBC Hgb Hct MCV MCH MCHC RDW Plt Count Lymph % (Auto) [place] % (Auto) Lymph # (Auto) [place] # (Auto) Seg Neutrophils % Seg Neuts % (Manual) Lymphocytes % (Manual) Monocytes % (Manual) Nucleated RBC % Seg Neutrophils # Seg Neutrophils # Man Lymphocytes # (Manual) Monocytes # (Manual) PT INR APTT Fibrinogen D-Dimer ABG pH 7.534 H POC ABG pCO2 POC ABG pO2 ABG pO2 95.2 H ABG HCO3 ABG Base Excess ABG Hemoglobin 11.3 L ABG Oxyhemoglobin ABG Sodium ABG Potassium ABG Chloride ABG Glucose VBG pH Oxyhemoglobin Carboxyhemoglobin Sodium Potassium Chloride Carbon Dioxide BUN Creatinine Glucose POC Glucose 109 H 106 H Lactic Acid Calcium Ionized Calcium Magnesium AST ALT Alkaline Phosphatase Lactate Dehydrogenase NT-Pro-B Natriuret Pep Total Protein Albumin Arterial Blood Glucose Arterial Blood Ionized Calcium Urine WBC (Auto) Phenytoin Crossmatch 10/11/20 10/11/20 10/11/20 04:00 04:00 06:08 WBC 27.0 H RBC Hgb Hct MCV MCH MCHC RDW 17.7 H Plt Count Lymph % (Auto) 6.3 L [place] % (Auto) Lymph # (Auto) [place] # (Auto) 1.5 H Seg Neutrophils % 87.1 H Seg Neuts % (Manual) Lymphocytes % (Manual) Monocytes % (Manual) Nucleated RBC % Seg Neutrophils # 23.5 H Seg Neutrophils # Man Lymphocytes # (Manual) Monocytes # (Manual) PT INR APTT Fibrinogen D-Dimer ABG pH POC ABG pCO2 POC ABG pO2 ABG pO2 ABG HCO3 ABG Base Excess ABG Hemoglobin ABG Oxyhemoglobin ABG Sodium ABG Potassium ABG Chloride ABG Glucose VBG pH Oxyhemoglobin Carboxyhemoglobin Sodium Potassium 3.2 L Chloride 110.4 H Carbon Dioxide 19 L BUN 22 H Creatinine Glucose 116 H POC Glucose 107 H Lactic Acid Calcium 7.7 L Ionized Calcium Magnesium 1.60 L AST ALT Alkaline Phosphatase Lactate Dehydrogenase NT-Pro-B Natriuret Pep Total Protein Albumin Arterial Blood Glucose Arterial Blood Ionized Calcium Urine WBC (Auto) Phenytoin Crossmatch 10/11/20 10/11/20 10/12/20 11:41 13:26 03:52 WBC RBC Hgb Hct MCV MCH MCHC RDW Plt Count Lymph % (Auto) [place] % (Auto) Lymph # (Auto) [place] # (Auto) Seg Neutrophils % Seg Neuts % (Manual) Lymphocytes % (Manual) Monocytes % (Manual) Nucleated RBC % Seg Neutrophils # Seg Neutrophils # Man Lymphocytes # (Manual) Monocytes # (Manual) PT INR APTT Fibrinogen D-Dimer ABG pH POC ABG pCO2 POC ABG pO2 ABG pO2 ABG HCO3 ABG Base Excess ABG Hemoglobin ABG Oxyhemoglobin ABG Sodium ABG Potassium ABG Chloride ABG Glucose VBG pH Oxyhemoglobin Carboxyhemoglobin Sodium Potassium Chloride Carbon Dioxide BUN Creatinine Glucose POC Glucose 116 H 114 H Lactic Acid Calcium Ionized Calcium Magnesium AST ALT Alkaline Phosphatase Lactate Dehydrogenase NT-Pro-B Natriuret Pep Total Protein Albumin Arterial Blood Glucose Arterial Blood Ionized Calcium Urine WBC (Auto) 24.0 H Phenytoin Crossmatch 10/12/20 10/12/20 10/12/20 04:24 14:47 21:33 WBC RBC Hgb Hct MCV MCH MCHC RDW Plt Count Lymph % (Auto) [place] % (Auto) Lymph # (Auto) [place] # (Auto) Seg Neutrophils % Seg Neuts % (Manual) Lymphocytes % (Manual) Monocytes % (Manual) Nucleated RBC % Seg Neutrophils # Seg Neutrophils # Man Lymphocytes # (Manual) Monocytes # (Manual) PT INR APTT Fibrinogen D-Dimer ABG pH POC ABG pCO2 POC ABG pO2 ABG pO2 ABG HCO3 ABG Base Excess ABG Hemoglobin ABG Oxyhemoglobin ABG Sodium ABG Potassium ABG Chloride ABG Glucose VBG pH Oxyhemoglobin Carboxyhemoglobin Sodium Potassium Chloride 109.9 H Carbon Dioxide 13 L BUN 18 H Creatinine Glucose 119 H POC Glucose 107 H Lactic Acid Calcium 7.6 L Ionized Calcium Magnesium 1.60 L AST ALT Alkaline Phosphatase Lactate Dehydrogenase NT-Pro-B Natriuret Pep Total Protein Albumin Arterial Blood Glucose Arterial Blood Ionized Calcium Urine WBC (Auto) Phenytoin Crossmatch 10/12/20 10/12/20 10/13/20 Unknown Unknown 07:00 WBC 24.3 H RBC 3.38 L Hgb 9.8 L Hct MCV MCH MCHC RDW 18.7 H Plt Count Lymph % (Auto) [place] % (Auto) Lymph # (Auto) [place] # (Auto) Seg Neutrophils % Seg Neuts % (Manual) 93.5 H Lymphocytes % (Manual) 4.5 L Monocytes % (Manual) Nucleated RBC % Seg Neutrophils # Seg Neutrophils # Man 22.7 H Lymphocytes # (Manual) 1.1 L Monocytes # (Manual) PT INR APTT Fibrinogen D-Dimer ABG pH POC ABG pCO2 POC ABG pO2 ABG pO2 ABG HCO3 ABG Base Excess ABG Hemoglobin ABG Oxyhemoglobin ABG Sodium ABG Potassium ABG Chloride ABG Glucose VBG pH Oxyhemoglobin Carboxyhemoglobin Sodium 135 L D Potassium 3.1 L Chloride Carbon Dioxide 17 L BUN Creatinine Glucose 510 H* POC Glucose Lactic Acid Calcium 7.2 L Ionized Calcium Magnesium AST ALT Alkaline Phosphatase Lactate Dehydrogenase NT-Pro-B Natriuret Pep Total Protein Albumin Arterial Blood Glucose Arterial Blood Ionized Calcium Urine WBC (Auto) Phenytoin 5.7 L Crossmatch 10/13/20 10/13/20 10/13/20 07:00 07:00 07:18 WBC 23.6 H RBC 3.26 L Hgb 9.4 L Hct 28.7 L MCV MCH MCHC RDW 18.3 H Plt Count Lymph % (Auto) [place] % (Auto) Lymph # (Auto) [place] # (Auto) Seg Neutrophils % Seg Neuts % (Manual) Lymphocytes % (Manual) Monocytes % (Manual) Nucleated RBC % Seg Neutrophils # Seg Neutrophils # Man Lymphocytes # (Manual) Monocytes # (Manual) PT INR APTT Fibrinogen D-Dimer ABG pH 7.473 H POC ABG pCO2 20.7 L POC ABG pO2 137.9 H ABG pO2 ABG HCO3 ABG Base Excess ABG Hemoglobin 11.2 L ABG Oxyhemoglobin 98.3 H ABG Sodium 135.9 L ABG Potassium ABG Chloride 111.0 H ABG Glucose 109 H VBG pH Oxyhemoglobin Carboxyhemoglobin 0.3 L Sodium 135 L Potassium 3.5 L Chloride 109.1 H Carbon Dioxide 18 L BUN Creatinine Glucose POC Glucose Lactic Acid Calcium 7.3 L Ionized Calcium Magnesium 1.60 L AST ALT Alkaline Phosphatase Lactate Dehydrogenase NT-Pro-B Natriuret Pep Total Protein Albumin Arterial Blood Glucose 109 H Arterial Blood Ionized Calcium Urine WBC (Auto) Phenytoin Crossmatch 10/14/20 10/14/20 10/15/20 04:00 04:00 05:50 WBC 28.6 H 23.2 H RBC 3.61 L 3.43 L Hgb 9.9 L Hct 30.0 L MCV MCH MCHC RDW 18.3 H 18.2 H Plt Count Lymph % (Auto) [place] % (Auto) Lymph # (Auto) [place] # (Auto) Seg Neutrophils % Seg Neuts % (Manual) 88.0 H 90.0 H Lymphocytes % (Manual) 5.0 L 4.0 L Monocytes % (Manual) Nucleated RBC % Seg Neutrophils # Seg Neutrophils # Man 25.2 H 20.9 H Lymphocytes # (Manual) 0.9 L Monocytes # (Manual) 1.4 H 0.9 H PT INR APTT Fibrinogen D-Dimer ABG pH POC ABG pCO2 POC ABG pO2 ABG pO2 ABG HCO3 ABG Base Excess ABG Hemoglobin ABG Oxyhemoglobin ABG Sodium ABG Potassium ABG Chloride ABG Glucose VBG pH Oxyhemoglobin Carboxyhemoglobin Sodium Potassium Chloride 109.9 H Carbon Dioxide 17 L BUN Creatinine Glucose POC Glucose Lactic Acid Calcium Ionized Calcium Magnesium AST ALT Alkaline Phosphatase Lactate Dehydrogenase NT-Pro-B Natriuret Pep Total Protein Albumin Arterial Blood Glucose Arterial Blood Ionized Calcium Urine WBC (Auto) Phenytoin Crossmatch 10/15/20 10/16/20 10/17/20 05:50 11:57 04:57 WBC 15.2 H RBC 3.43 L Hgb Hct MCV MCH MCHC RDW 18.1 H Plt Count Lymph % (Auto) [place] % (Auto) Lymph # (Auto) [place] # (Auto) Seg Neutrophils % Seg Neuts % (Manual) Lymphocytes % (Manual) Monocytes % (Manual) Nucleated RBC % Seg Neutrophils # Seg Neutrophils # Man Lymphocytes # (Manual) Monocytes # (Manual) PT INR APTT Fibrinogen D-Dimer ABG pH POC ABG pCO2 POC ABG pO2 ABG pO2 ABG HCO3 ABG Base Excess ABG Hemoglobin ABG Oxyhemoglobin ABG Sodium ABG Potassium ABG Chloride ABG Glucose VBG pH Oxyhemoglobin Carboxyhemoglobin Sodium Potassium Chloride 110.3 H Carbon Dioxide 18 L BUN Creatinine Glucose 105 H POC Glucose 111 H Lactic Acid Calcium 8.3 L Ionized Calcium Magnesium AST ALT Alkaline Phosphatase Lactate Dehydrogenase NT-Pro-B Natriuret Pep Total Protein Albumin Arterial Blood Glucose Arterial Blood Ionized Calcium Urine WBC (Auto) Phenytoin Crossmatch 10/17/20 10/17/20 10/18/20 05:25 21:16 01:31 WBC RBC Hgb Hct MCV MCH MCHC RDW Plt Count Lymph % (Auto) [place] % (Auto) Lymph # (Auto) [place] # (Auto) Seg Neutrophils % Seg Neuts % (Manual) Lymphocytes % (Manual) Monocytes % (Manual) Nucleated RBC % Seg Neutrophils # Seg Neutrophils # Man Lymphocytes # (Manual) Monocytes # (Manual) PT INR APTT Fibrinogen D-Dimer ABG pH POC ABG pCO2 POC ABG pO2 ABG pO2 ABG HCO3 ABG Base Excess ABG Hemoglobin ABG Oxyhemoglobin ABG Sodium ABG Potassium ABG Chloride ABG Glucose VBG pH Oxyhemoglobin Carboxyhemoglobin Sodium Potassium Chloride Carbon Dioxide BUN Creatinine Glucose POC Glucose 107 H 106 H 119 H Lactic Acid Calcium Ionized Calcium Magnesium AST ALT Alkaline Phosphatase Lactate Dehydrogenase NT-Pro-B Natriuret Pep Total Protein Albumin Arterial Blood Glucose Arterial Blood Ionized Calcium Urine WBC (Auto) Phenytoin Crossmatch 10/18/20 10/18/20 10/19/20 05:45 11:23 01:14 WBC RBC Hgb Hct MCV MCH MCHC RDW Plt Count Lymph % (Auto) [place] % (Auto) Lymph # (Auto) [place] # (Auto) Seg Neutrophils % Seg Neuts % (Manual) Lymphocytes % (Manual) Monocytes % (Manual) Nucleated RBC % Seg Neutrophils # Seg Neutrophils # Man Lymphocytes # (Manual) Monocytes # (Manual) PT INR APTT Fibrinogen D-Dimer ABG pH POC ABG pCO2 POC ABG pO2 ABG pO2 ABG HCO3 ABG Base Excess ABG Hemoglobin ABG Oxyhemoglobin ABG Sodium ABG Potassium ABG Chloride ABG Glucose VBG pH Oxyhemoglobin Carboxyhemoglobin Sodium Potassium Chloride Carbon Dioxide BUN Creatinine Glucose POC Glucose 106 H 115 H 108 H Lactic Acid Calcium Ionized Calcium Magnesium AST ALT Alkaline Phosphatase Lactate Dehydrogenase NT-Pro-B Natriuret Pep Total Protein Albumin Arterial Blood Glucose Arterial Blood Ionized Calcium Urine WBC (Auto) Phenytoin Crossmatch 10/19/20 09:57 WBC RBC Hgb Hct MCV MCH MCHC RDW Plt Count Lymph % (Auto) [place] % (Auto) Lymph # (Auto) [place] # (Auto) Seg Neutrophils % Seg Neuts % (Manual) Lymphocytes % (Manual) Monocytes % (Manual) Nucleated RBC % Seg Neutrophils # Seg Neutrophils # Man Lymphocytes # (Manual) Monocytes # (Manual) PT INR APTT Fibrinogen D-Dimer ABG pH POC ABG pCO2 POC ABG pO2 ABG pO2 ABG HCO3 ABG Base Excess ABG Hemoglobin ABG Oxyhemoglobin ABG Sodium ABG Potassium ABG Chloride ABG Glucose VBG pH Oxyhemoglobin Carboxyhemoglobin Sodium Potassium Chloride Carbon Dioxide BUN Creatinine Glucose POC Glucose 122 H Lactic Acid Calcium Ionized Calcium Magnesium AST ALT Alkaline Phosphatase Lactate Dehydrogenase NT-Pro-B Natriuret Pep Total Protein Albumin Arterial Blood Glucose Arterial Blood Ionized Calcium Urine WBC (Auto) Phenytoin Crossmatch
--- NOTE | 2020-10-19 12:27 | Progress Note ---
Assessment and Plan A: POD#17 s/p repeat section at 36 wks secondary to Eclampsia and Cardiac Arrest with Resuscitation POD#17 s/p supracervical abdominal hysterectomy secondary to Uterine Atony, Hemorrhage and Disseminated Intravascular Coagulation (DIC) s/p multiple transfusions of blood products Acute Kidney Injury, nonoligouric Transaminitis -Status post cardiac arrest 10/07/2020 requiring reintubation. 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 30y/o POD #17 s/p emergent section and supracervical hysterectomy for eclampsia and DIC. Patient remains unresponsive and intubated. T max since yesterday 99.5 at 8 am this morning. In agreement with the other consultants that her neurological prognosis is poor. Appreciate plan for family meeting to determine fci care plan. Patient reports: bowel movement Objective - Vital Signs Latest vital signs: Vital Signs Temp Pulse Pulse Pulse Resp Resp BP 10/19/20 11:45 88 25 H 130/84 10/19/20 11:39 87 130/84 10/19/20 11:30 90 23 130/84 10/19/20 11:15 83 21 118/67 10/19/20 11:00 80 19 118/67 10/19/20 10:45 86 21 131/78 10/19/20 10:30 86 25 H 131/78 10/19/20 10:15 86 24 121/81 10/19/20 10:00 88 26 H 121/81 10/19/20 09:45 91 H 22 128/73 10/19/20 09:30 84 22 128/73 10/19/20 09:15 83 20 119/64 10/19/20 09:05 87 26 H 10/19/20 09:01 79 20 119/64 10/19/20 08:45 86 22 133/85 10/19/20 08:43 85 10/19/20 08:31 88 25 H 133/85 10/19/20 08:18 90 123/69 10/19/20 08:15 89 23 133/85 10/19/20 08:00 99.8 F H 81 81 18 10/19/20 07:46 91 H 21 133/85 10/19/20 07:30 88 24 133/85 10/19/20 07:16 90 26 H 141/80 10/19/20 07:00 91 H 25 H 141/80 10/19/20 06:46 81 20 136/80 10/19/20 06:30 90 25 H 136/80 10/19/20 06:16 90 22 129/77 10/19/20 06:00 85 22 129/77 10/19/20 05:46 74 20 148/93 10/19/20 05:37 76 148/93 10/19/20 05:30 87 20 148/93 10/19/20 05:16 84 24 124/74 10/19/20 05:00 72 20 124/74 10/19/20 04:46 80 20 138/73 10/19/20 04:30 74 23 138/73 10/19/20 04:16 73 22 141/93 10/19/20 04:00 81 86 28 H 148/93 10/19/20 03:46 79 22 130/91 10/19/20 03:30 89 21 124/91 10/19/20 03:21 99.4 F 10/19/20 03:16 82 21 139/88 10/19/20 03:00 84 26 H 130/91 10/19/20 02:46 74 23 134/85 10/19/20 02:30 89 40 H 139/88 10/19/20 02:16 92 H 25 H 134/85 10/19/20 02:00 89 25 H 134/85 10/19/20 01:46 95 H 29 H 144/93 10/19/20 01:30 89 23 144/93 10/19/20 01:16 89 26 H 131/87 10/19/20 01:00 88 30 H 124/71 10/19/20 00:46 75 20 122/68 10/19/20 00:30 92 H 27 H 131/87 10/19/20 00:16 90 27 H 122/68 10/19/20 00:05 85 122/68 10/19/20 00:00 76 81 19 122/68 10/18/20 23:46 88 24 142/87 10/18/20 23:30 87 26 H 142/87 10/18/20 23:16 86 25 H 120/67 10/18/20 23:04 77 21 120/67 10/18/20 23:00 79 20 120/67 10/18/20 22:46 84 21 118/75 10/18/20 22:30 86 25 H 131/74 10/18/20 22:16 77 20 118/75 10/18/20 22:08 86 118/75 10/18/20 22:00 88 20 118/75 10/18/20 21:46 89 20 117/75 10/18/20 21:30 87 18 117/75 10/18/20 21:16 84 20 110/64 10/18/20 21:00 86 25 H 110/64 10/18/20 20:58 86 124/69 10/18/20 20:46 91 H 24 124/69 10/18/20 20:33 82 124/69 10/18/20 20:30 90 24 124/69 10/18/20 20:16 92 H 25 H 113/58 10/18/20 20:00 98.6 F 81 86 20 113/58 10/18/20 19:46 91 H 15 113/58 10/18/20 19:30 93 H 19 113/58 10/18/20 19:16 91 H 17 113/58 10/18/20 19:00 88 20 113/58 10/18/20 18:46 88 22 113/58 10/18/20 18:30 95 H 26 H 113/58 10/18/20 18:16 96 H 28 H 113/58 10/18/20 18:00 113/71 10/18/20 17:46 82 19 113/68 10/18/20 17:30 88 25 H 113/68 10/18/20 17:16 87 17 122/66 10/18/20 17:00 89 27 H 122/66 10/18/20 16:46 89 24 124/68 10/18/20 16:30 89 21 124/68 01/03/21 16:17 86 23 10/18/20 16:16 83 22 106/66 10/18/20 16:00 99.4 F 84 20 106/66 10/18/20 15:46 91 H 25 H 110/64 10/18/20 15:30 85 19 110/64 10/18/20 15:16 87 25 H 111/59 10/18/20 15:00 82 20 111/59 10/18/20 14:46 87 24 111/61 10/18/20 14:34 89 111/61 10/18/20 14:30 88 24 111/61 10/18/20 14:16 88 19 134/78 10/18/20 14:00 92 H 24 134/78 10/18/20 13:46 88 20 112/65 10/18/20 13:39 87 112/65 10/18/20 13:30 80 19 112/65 10/18/20 13:16 80 16 123/77 10/18/20 13:00 88 21 123/77 10/18/20 12:46 89 24 113/71 10/18/20 12:30 87 16 121/72 Pulse Ox 10/19/20 11:45 100 10/19/20 11:39 98 10/19/20 11:30 98 10/19/20 11:15 96 10/19/20 11:00 99 10/19/20 10:45 99 10/19/20 10:30 97 10/19/20 10:15 100 10/19/20 10:00 98 10/19/20 09:45 100 10/19/20 09:30 97 10/19/20 09:15 99 10/19/20 09:05 10/19/20 09:01 98 10/19/20 08:45 100 10/19/20 08:43 99 10/19/20 08:31 100 10/19/20 08:18 10/19/20 08:15 100 10/19/20 08:00 96 10/19/20 07:46 100 10/19/20 07:30 98 10/19/20 07:16 100 10/19/20 07:00 97 10/19/20 06:46 99 10/19/20 06:30 97 10/19/20 06:16 100 10/19/20 06:00 97 10/19/20 05:46 100 10/19/20 05:37 10/19/20 05:30 97 10/19/20 05:16 100 10/19/20 05:00 97 10/19/20 04:46 99 10/19/20 04:30 98 10/19/20 04:16 100 10/19/20 04:00 100 10/19/20 03:46 100 10/19/20 03:30 99 10/19/20 03:21 10/19/20 03:16 100 10/19/20 03:00 99 10/19/20 02:46 100 10/19/20 02:30 97 10/19/20 02:16 100 10/19/20 02:00 98 10/19/20 01:46 100 10/19/20 01:30 98 10/19/20 01:16 100 10/19/20 01:00 97 10/19/20 00:46 100 10/19/20 00:30 97 10/19/20 00:16 100 10/19/20 00:05 99 10/19/20 00:00 97 10/18/20 23:46 100 10/18/20 23:30 98 10/18/20 23:16 100 10/18/20 23:04 100 10/18/20 23:00 98 10/18/20 22:46 99 10/18/20 22:30 97 10/18/20 22:16 100 10/18/20 22:08 10/18/20 22:00 96 10/18/20 21:46 99 10/18/20 21:30 97 10/18/20 21:16 99 10/18/20 21:00 95 10/18/20 20:58 99 10/18/20 20:46 99 10/18/20 20:33 10/18/20 20:30 96 10/18/20 20:16 99 10/18/20 20:00 99 10/18/20 19:46 99 10/18/20 19:30 99 10/18/20 19:16 100 10/18/20 19:00 99 10/18/20 18:46 99 10/18/20 18:30 100 10/18/20 18:16 99 10/18/20 18:00 98 10/18/20 17:46 99 10/18/20 17:30 96 10/18/20 17:16 99 10/18/20 17:00 95 10/18/20 16:46 99 10/18/20 16:30 95 10/18/20 16:17 10/18/20 16:16 99 10/18/20 16:00 94 10/18/20 15:46 99 10/18/20 15:30 95 10/18/20 15:16 99 10/18/20 15:00 96 10/18/20 14:46 99 10/18/20 14:34 99 10/18/20 14:30 94 10/18/20 14:16 99 10/18/20 14:00 98 10/18/20 13:46 99 10/18/20 13:39 10/18/20 13:30 96 10/18/20 13:16 99 10/18/20 13:00 96 10/18/20 12:46 100 10/18/20 12:30 98 Intake and Output 10/18/20 10/19/20 10/19/20 22:59 06:59 14:59 Intake Total 1725.00 1980 566.928 Output Total 1600 2350 1999 Balance 125.00 -370 -1433.072 Intake: IV 1005.00 1260 141.928 CEFEPIME/NS 2 GM/100 ML 2 100 gm In 100 ml @ 200 mls/ hr IV Q12HR ERINN Rx#: [id number] D10w 1,000 ml @ 75 mls/hr 1000 IV DIRECT ERINN Rx#: [id number] FLAGYL 500 MG/100 ML 500 100 mg In 100 ml @ 100 mls/hr IV Q8H ERINN Rx#:[id number] Right Antecubital 10 10 Vancomycin 1,750 mg In 535 NaCl 0.9% 500 ml 500 ml @ 333.333 mls/hr IV Q12H ERINN Rx#:[id number] dexmedeTOMIDine 1,000 MCG 260.00 260 131.928 In NaCl 0.9% 250Ml 250 ml @ 0.2 MCG/KG/HR 7.249 mls/hr IV TITRATE ERINN Rx# :[id number] Intake, Free Water 200 200 100 Tube Feeding 520 520 325 Output: Urine 1000 2150 2000 Indwelling Catheter 1000 2150 2000 Stool 600 200 Other: Total, Intake Amount 65 65 65 Total, Output Amount 914 572 7362 Voiding Method Indwelling Catheter Indwelling Catheter Indwelling Catheter Weight 117.3 kg - Labs Labs: Abnormal lab results 10/19/20 10/19/20 Range/Units 01:14 09:57 POC Glucose 108 H 122 H (70-105) mg/dL
--- NOTE | 2020-10-19 12:35 | Event Note ---
Date: 10/19/20 Phone convo with , Mother and Family that is a nurse and CM. Updated them throughout the entire process and where we are now. Explained that the next appropriate step would be trach and peg placement. Discussed the procedure with family on the phone. They are all in agreement and have consented to trach and peg. Will consult surgery today and they will assess OR vs Bedside procedures.
--- NOTE | 2020-10-19 13:35 | Consultation ---
History of Present Illness Consult date: 10/19/20 Chief complaint: vent - History of present illness History of present illness: 30 yo F with hx of ADHD, morbid obesity, fibromyalgia, GERD, Irritable Bowel Syndrome, Migraines who presented to hospital on 10/02/20 with seizures. Patient was 36w5d at the time and underwent emergent csection due to eclampsia, cardiac arrest. She also underwent supracervical abdominal hysterectomy secondary to Uterine Atony, Hemorrhage and Disseminated Intravascular Coagulation (DIC). In addition to this, the patient has been intubated and on the vent since 10/02/20 and is unable to be extubated due to mental status. Surg kiarra is consulted for evaluation for trach and peg. Pt recently diagnosed with cdiff for which she is on contact precautions and is receiving treatment. ID is on board. All history obtained from chart, patient unable to provide as she is on vent Past History Past Medical History: GERD, hypertension, seizures, other (IBD, MIGRAINES, Anxiety, Genital Herpes, Obesity) Past Surgical History: Social history: , full code Family history: hypertension Medications and Allergies Allergies Allergy/AdvReac Type Severity Reaction Status Date / Time egg Allergy Severe Anaphylaxis Verified 05/22/20 16:09 NSAIDS (Non-Steroidal Allergy Severe Unknown Verified 05/22/20 16:09 Anti-Inflamma Sulfa (Sulfonamide Allergy Severe Anaphylaxis Verified 05/22/20 16:09 Antibiotics) ibuprofen Allergy Intermediate Bleeding Verified 05/22/20 16:09 latex Allergy Hives Verified 05/22/20 16:09 plecanatide [From Trulance] Allergy Anaphylaxis Verified 05/22/20 16:09 adhesive tape AdvReac Intermediate Unknown Verified 05/22/20 16:09 metoclopramide [From Reglan] AdvReac Unknown Verified 05/22/20 16:09 Home Medications Medication Instructions Recorded Confirmed Last Taken Type Pantoprazole [Protonix TAB] 20 mg PO DAILY 05/10/19 08/20/20 05/10/19 05:00 History busPIRone 15 mg PO DAILY 01/15/20 08/20/20 Unknown History Albuterol Sulfate [Proventil Hfa] 6.7 gm IH Q4HR PRN #1 hfa.aer.ad 04/07/20 08/20/20 Unknown Rx Topiramate (Nf) [Trokendi XR CAP] 100 mg PO DAILY 08/20/20 08/20/20 Unknown History oxyCODONE /ACETAMINOPHEN [Percocet 1 tab PO Q6HR 08/20/20 08/20/20 Unknown History 5/325 mg] Active Meds: Active Medications Acetaminophen (Acetaminophen 325 Mg/10.15 Ml Oral Liqd Unit Dose) 650 mg FEEDTUBE Q6H PRN PRN Reason: Non Cardiac Pain or Temp>100.5 Last Admin: 10/16/20 00:13 Dose: 650 mg Documented by: Albuterol/Ipratropium (Ipratropium/Albuterol Sulfate 3 Ml Ampul.Neb) 1 ampul IH Q8HRT [facility] Last Admin: 10/19/20 08:46 Dose: 1 ampul Documented by: Lipase/Protease/Amylase (Lipase 10,500/Protease 25,000/Amylase 43,750 (Units) Dr Barakat) 1 each FEEDTUBE PRN PRN PRN Reason: For Clogged Feeding Tube Famotidine (Famotidine 20 Mg Tab) 20 mg PO BID [facility] Last Admin: 10/19/20 09:49 Dose: 20 mg Documented by: Furosemide (Furosemide 40 Mg Tab) 40 mg PO QDAY [facility] Last Admin: 10/19/20 09:49 Dose: 40 mg Documented by: Hydralazine HCl (Hydralazine 20 Mg/1 Ml Inj) 20 mg IV Q6H PRN PRN Reason: SBP >170 Last Admin: 10/17/20 07:20 Dose: 20 mg Documented by: Hydralazine HCl (Hydralazine 25 Mg Tab) 50 mg PO Q8HR [facility] Last Admin: 10/19/20 05:37 Dose: 50 mg Documented by: Hydrophilic Ointment (Lip Therapy Vaseline) 1 applic TP Q2HR PRN PRN Reason: Dry Lips Dextrose (D10w) 1,000 mls @ 75 mls/hr IV DIRECT [facility] Last Admin: 10/19/20 01:19 Dose: 75 mls/hr Documented by: Cefepime HCl (Cefepime/Ns 2 Gm/100 Ml) 2 gm in 100 mls @ 200 mls/hr IV Q12HR [facility]; Protocol Last Admin: 10/19/20 09:49 Dose: 200 mls/hr Documented by: Metronidazole (Flagyl 500 Mg/100 Ml) 500 mg in 100 mls @ 100 mls/hr IV Q8H [facility]; Protocol Last Admin: 10/19/20 13:01 Dose: 100 mls/hr Documented by: Vancomycin HCl 1,750 mg/ (Sodium Chloride) 535 mls @ 333.333 mls/hr IV Q12H [facility] Last Admin: 10/19/20 02:16 Dose: 333 mls/hr Documented by: Labetalol HCl (Labetalol 100 Mg Tab) 300 mg PO TID [facility] Last Admin: 10/19/20 08:18 Dose: 300 mg Documented by: Multi-Ingred Cream/Lotion/Oil/Oint (Mineral Oil/Petrolatum, White Ophth Oint 3.5 Gm) 1 applic OU Q4HR PRN PRN Reason: Dry Eye(s) Simple Syrup (Simple Syrup 15 Ml) 15 ml FEEDTUBE PRN PRN PRN Reason: Hypoglycemia Simple Syrup (Simple Syrup 15 Ml) 30 ml FEEDTUBE PRN PRN PRN Reason: Hypoglycemia Sodium Bicarbonate (Sodium Bicarbonate 325 Mg Tab) 325 mg FEEDTUBE PRN PRN PRN Reason: For Clogged Feeding Tube Sodium Bicarbonate (Sodium Bicarbonate 650 Mg Tab) 1,300 mg PO TID [facility] Last Admin: 10/19/20 08:17 Dose: 1,300 mg Documented by: Topiramate (Topiramate Tab 25 Mg Tab) 50 mg PO Q12HR [facility] Last Admin: 10/19/20 09:48 Dose: 50 mg Documented by: Review of Systems ROS unobtainable: due to endotracheal tube, due to mental status Exam Vital Signs Pulse Pulse Ox 75 98 10/02/20 11:36 10/02/20 11:36 Narrative exam: Gen.: Intubated, not responsive. Opens eyes spontaneously, does not follow commands ENT: Trachea midline. No lymphadenopathy. No scleral icterus or conjunctival pallor. Copious clear secretions from mouth and nose. CV: S1, S2 present Respiratory: No audible wheezes Abdomen: Soft, prominent rectus diathasis, nondistended, nontender. No rebound, rigidity, guarding Extremities: generalized edema Results - Labs 10/17/20 04:57 10/15/20 05:50 Abnormal lab results 10/19/20 10/19/20 Range/Units 01:14 09:57 POC Glucose 108 H 122 H (70-105) mg/dL - Imaging Chest x-ray: report reviewed, image reviewed CT scan - abdomen: report reviewed, image reviewed CT scan - pelvis: report reviewed, image reviewed Assessment and Plan 30 yo F 1. VDRF 2. Eclampsia s/p emergent csection 10/02/20 3. s/p cardiac arrest 10/02/20 4. Cdiff 5. Bacteremia Pt stable. Covid test on 10/08/20 negative. Plan: 1. Patient is an acceptable candidate for trach and PEG - will discuss with family and obtain consent 2. Tentatively on OR schedule for Saturday 10/21 @730am 3. Continue vent management per ICU team 4. Would benefits from robinul for secretions - will defer to ICU team Thank you for this consultation. Please call with any questions or concerns. Evaluation and treatment of this patient was during the time of the national and state emergency arising from COVID19 coronavirus pandemic. Treatment and procedures performed meet the current and available best practice and guidelines for patient during the COVID pandemic.
--- NOTE | 2020-10-19 15:24 | Progress Note ---
Assessment and Plan Cultures: 10/05/2020 Blood culture: no growth 10/11/2020 blood culture: No growth 10/11/2020 tracheal aspirate: Usual respiratory jaylan 10/14/2020 blood culture: GNR, GPC 10/15/2020 blood culture: Pending A/P: 30-year-old female with GERD, hypertension, seizure disorder was admitted to the hospital at 36 weeks with seizures. She became hypoxic and pulseless requiring CPR. Following emergent section, patient developed hemorrhage, DIC. She has been admitted to ICU, remains on the vent: #Persistent fever, sepsis is likely secondary to bacteremia: ?PICC, no acute intra-abdominal source noted on CT #Status post arrest 10/07/2020: Apparently had a brief code due to ?ET tube clot/plugging. #Initial shock, DIC/persistent fever: Secondary to hemorrhage, ?possible sepsis. Possible pneumonia versus fluid overload. ?Central fever v/s from VTE. Noted diarrhea ? Cdiff #Acute kidney injury: resolved #Acute respiratory failure: remains on the vent. #Transaminitis: ?HELLP. Improving. #Preeclampsia # hemorrhage: Status post , status post supracervical hysterectomy. #Encephalopathy post cardiac arrest: Neurology on board. #C. difficile: On oral vancomycin Recs: -ICU requested new PICC line to be placed while patient ongoing bacteremia. It will have to be replaced after blood cultures are cleared and patient stabilized. -Follow-up repeat blood cultures -Follow-up ID and JOSHUA of blood cultures -Continue empiric Cefepime, Flagyl -No gram positives on cultures, will stop IV vancomycin -Continue p.o. vancomycin to complete 10 days of therapy. Monitor diarrhea output while receiving -Discussed with ericka Nielsen to receive trach and PEG today. Should not interfere with infectious processes. Julee Oneill MD [facility] ([facility] O: [phone] F: [phone] Subjective Date of service: 10/19/20 Principal diagnosis: Eclampsia/HELLP Syndrome, ADOLPH, DIC; s/p , s/p supracervical hyst Interval history: Afebrile over last 24 hours. No acute changes. For trach and PEG today. Blood cultures still awaiting speciation of gram-negative rods. Objective - Exam Narrative Exam: Constitutional: awake, intubated, on the vent Head, Ears, Nose: Normocephalic, atraumatic. Eyes: Conjunctivae/corneas clear. No icterus. No ptosis. Neck: intubated Oral: intubated Cardiovascular: S1, S2 + Respiratory: AE fair bilaterally and equal GI: Soft, bowel sounds +. lower abdominal incision present with dressing Musculoskeletal: edematous extremities, no cyanosis. Skin: No rash or abscess Hem/Lymphatic: No palpable cervical or supraclavicular nodes. No lymphangitis Psych: no agitation Neurological: awake, doesn't follow commands, but opens eyes, intubated, on the vent, exam limited - Constitutional Vitals: Vital Signs Temp Pulse Resp BP Pulse Ox 99.5 F 100 H 29 H 132/79 99 10/19/20 12:00 10/19/20 15:00 10/19/20 15:00 10/19/20 15:00 10/19/20 15:00 Temperature -Last 24 Hours Temperature 99.5 F Temperature 99.8 F Temperature 99.4 F Temperature 98.6 F Temperature 99.4 F - Labs CBC & Chem 7: 10/17/20 04:57 10/15/20 05:50 Labs: Abnormal lab results 10/19/20 10/19/20 Range/Units 01:14 09:57 POC Glucose 108 H 122 H (70-105) mg/dL
[2020-10-19] MEDS ORDERED: VANCOMYCIN PHARMACY TO DOSE IV SCH (16:00)
--- NOTE | 2020-10-19 16:47 | Vascular Lab Report ---
DUPLEX DOPPLER UPPER EXTREMITY VENOUS, BILATERAL INDICATION / CLINICAL INFORMATION: swelling, edema. TECHNIQUE: Duplex doppler imaging was performed through the veins of the right and left upper extremity using ve nous compression and other maneuvers. COMPARISON: None available. FINDINGS: RIGHT INTERNAL JUGULAR VEIN: Negative. RIGHT SUBCLAVIAN VEIN: Negative. RIGHT AXILLARY VEIN: Acute thrombus. RIGHT BRACHIAL VEIN: Acute thrombus. RIGHT FOREARM VEINS: Negative. RIGHT BASILIC VEIN (SUPERFICIAL): Acute thrombus. LEFT INTERNAL JUGULAR VEIN: Negative. LEFT SUBCLAVIAN VEIN: Negative. LEFT AXILLARY VEIN: Negative. LEFT BRACHIAL VEIN: Negative. LEFT FOREARM VEINS: Negative. LEFT BASILIC VEIN (SUPERFICIAL): Negative. ADDITIONAL FINDINGS: None. IMPRESSION: 1. Acute DVT is seen in the right axillary and right brachial veins. There is acute thrombus in the r ight basilic vein as well. CRITICAL RESULT: Technologist called this report to patient's nurse, Cecilia, at time 1522 Eastern time. Report was bharati barbaed. Signer Name: Dhaval Obregon MD Signed: 10/19/2020 4:42 PM Workstation Name: [id number]
--- NOTE | 2020-10-19 16:51 | Event Note ---
Date: 10/19/20 30 year old female with multiple medical issues including DIC, and ecclampsia with DVT and SVT in the RUE. Contacted about DVT. Recommend heparin drip anticoagulation for now. Recommend consulting hematology, again, to see if they have a specific type of anticoagulant recommendation given recent DIC. Full consult to follow tomorrow.
[2020-10-19] MEDS: ENOXAPARIN 120 MG/0.8 ML INJ SUB-Q SCH ×2 (16:59→21:32)
--- NOTE | 2020-10-19 16:59 | Vascular Lab Report ---
DUPLEX DOPPLER LOWER EXTREMITY VEINS, BILATERAL INDICATION: swelling, edema. TECHNIQUE: Duplex doppler imaging was performed through the veins of both lower extremities using venous lisandro maggy and other maneuvers. COMPARISON: No relevant prior imaging study available. FINDINGS: Right Common femoral vein: Negative. Right Superficial femoral vein: Negative. Right Popliteal vein: Negative. Right Calf veins: Negative. Left Common femoral vein: Negative. Left Superficial femoral vein: Negative. Left Popliteal vein: Negative. Left Calf veins: Negative. Additional findings: None.. IMPRESSION: 1. No sonographic evidence for DVT in either lower extremity. Signer Name: Chris Yoder MD Signed: 10/19/2020 4:55 PM Workstation Name: [id number]
[2020-10-19] MEDS: VANCOMYCIN 250 MG/10 ML ORAL LIQD PO SCH (17:02)
[2020-10-20] MEDS: VANCOMYCIN 250 MG/10 ML ORAL LIQD PO SCH ×4 (01:33→17:09)
[2020-10-20] MEDS: VANCOMYCIN 1,750 MG in SODIUM CHLORIDE 0.9% 500 ML 500 ML IV SCH ×2 (01:35→13:45)
[2020-10-20] MEDS: hydrALAZINE 25 MG TAB PO SCH ×3 (05:34→22:50)
[2020-10-20] MEDS: metroNIDAZOLE/NS 500 MG/100 ML 500 MG/100 ML BAG IV SCH ×2 (05:34→12:41)
--- NOTE | 2020-10-20 07:17 | Progress Note ---
Assessment and Plan A: POD#18 s/p repeat section at 36 wks secondary to Eclampsia and Cardiac Arrest with Resuscitation POD#18 s/p supracervical abdominal hysterectomy secondary to Uterine Atony, Hemorrhage and Disseminated Intravascular Coagulation (DIC) s/p multiple transfusions of blood products Right Upper Extremity superficial and deep vein thrombosis on Lovenox Plan for trach and PEG placement Acute Kidney Injury, nonoligouric Transaminitis -Status post cardiac arrest 10/07/2020 requiring reintubation. -Shock, DIC: Secondary to hemorrhage-stable -Sepsis: followed by ID, abx/imaging recommendations noted -Acute kidney injury: resolved, labs stable -Acute respiratory failure: remains on the vent -Preeclampsia: s/p Magnesium P: Continue supportive care as recommended by Pulmonology/Critical Care, Internal Medicine, Infectious Disease, Nephrology and Hematology-Oncology Await quill winder care plan as discussed with the family Subjective - Subjective Date of service: 10/20/20 Principal diagnosis: Eclampsia/HELLP Syndrome, ADOLPH, DIC; s/p , s/p supracervical hyst Interval history: All animal nutrition consultant recommendations reviewed and greatly appreciated. 30y/o POD #17 s/p emergent section and supracervical hysterectomy for eclampsia and DIC. Patient remains unresponsive and intubated. New finding of SVT and DVT in right upper extremity on Lovenox 120 mg subcu BID. T max 100.4 at 1600 10/19/2020. Objective - Vital Signs Latest vital signs: Vital Signs Temp Pulse Pulse Pulse Resp Resp BP 10/20/20 06:15 121 H 31 H 134/95 10/20/20 06:00 118 H 30 H 134/95 10/20/20 05:45 108 H 23 144/96 10/20/20 05:34 109 H 132/90 10/20/20 05:30 103 H 26 H 132/90 10/20/20 05:15 117 H 33 H 144/96 10/20/20 05:01 120 H 32 H 144/96 10/20/20 04:45 119 H 30 H 141/92 10/20/20 04:30 112 H 27 H 141/92 10/20/20 04:15 113 H 26 H 10/20/20 04:00 97.7 F 111 H 111 H 25 H 144/91 10/20/20 03:45 108 H 23 144/91 10/20/20 03:30 110 H 22 144/91 10/20/20 03:15 113 H 26 H 147/78 10/20/20 03:00 119 H 29 H 147/78 10/20/20 02:45 116 H 28 H 154/85 10/20/20 02:31 117 H 30 H 144/78 10/20/20 02:30 112 H 12 144/90 10/20/20 02:15 115 H 27 H 154/85 10/20/20 02:00 114 H 26 H 154/85 10/20/20 01:45 113 H 26 H 138/81 10/20/20 01:30 114 H 27 H 138/81 10/20/20 01:15 114 H 28 H 141/78 10/20/20 01:00 108 H 26 H 141/78 10/20/20 00:45 111 H 25 H 148/79 10/20/20 00:31 117 H 31 H 148/79 10/20/20 00:15 116 H 30 H 148/84 10/20/20 00:05 109 H 16 148/84 10/20/20 00:01 116 H 33 H 148/84 10/20/20 00:00 99.2 F 116 H 116 H 33 H 10/19/20 23:45 112 H 29 H 136/76 10/19/20 23:31 113 H 30 H 153/81 10/19/20 23:15 110 H 28 H 136/76 10/19/20 23:00 109 H 28 H 136/76 10/19/20 22:45 109 H 28 H 140/67 10/19/20 22:30 108 H 28 H 140/67 10/19/20 22:15 106 H 29 H 125/71 10/19/20 22:10 109 H 28 H 10/19/20 22:00 103 H 31 H 125/71 10/19/20 21:45 98 H 28 H 134/71 10/19/20 21:31 97 H 134/71 10/19/20 21:30 98 H 27 H 134/71 10/19/20 21:15 96 H 28 H 123/67 10/19/20 21:01 96 H 26 H 123/67 10/19/20 20:45 96 H 28 H 131/75 10/19/20 20:31 97 H 28 H 131/75 10/19/20 20:15 105 H 28 H 157/91 10/19/20 20:00 99.6 F 114 H 114 H 31 H 157/91 10/19/20 19:59 113 H 154/96 10/19/20 19:45 115 H 28 H 154/96 10/19/20 19:30 117 H 30 H 154/96 10/19/20 19:15 113 H 31 H 152/100 10/19/20 19:10 113 H 154/96 10/19/20 19:00 113 H 30 H 152/100 10/19/20 18:45 112 H 29 H 146/83 10/19/20 18:31 108 H 27 H 146/83 10/19/20 18:15 107 H 22 146/83 10/19/20 18:00 107 H 27 H 146/83 10/19/20 17:45 112 H 30 H 150/88 10/19/20 17:30 111 H 29 H 150/88 10/19/20 17:15 110 H 29 H 147/78 10/19/20 17:00 111 H 26 H 147/78 10/19/20 16:45 111 H 26 H 144/80 10/19/20 16:30 107 H 26 H 144/80 10/19/20 16:15 107 H 27 H 153/102 10/19/20 16:00 100.4 F H 108 H 84 108 H 29 H 25 H 153/102 10/19/20 15:45 106 H 29 H 138/84 10/19/20 15:36 104 H 138/84 10/19/20 15:30 103 H 30 H 138/84 10/19/20 15:15 102 H 30 H 132/79 10/19/20 15:00 100 H 29 H 132/79 10/19/20 14:45 97 H 28 H 103/61 10/19/20 14:31 96 H 24 103/61 10/19/20 14:15 101 H 25 H 126/80 10/19/20 14:07 100 H 126/80 10/19/20 14:00 102 H 21 126/80 10/19/20 13:45 104 H 26 H 131/87 10/19/20 13:30 103 H 28 H 131/87 10/19/20 13:15 93 H 25 H 132/93 10/19/20 13:00 97 H 24 132/93 10/19/20 12:45 96 H 25 H 114/77 10/19/20 12:30 92 H 25 H 114/77 10/19/20 12:15 94 H 26 H 118/77 10/19/20 12:00 99.5 F 92 H 91 H 27 H 118/77 10/19/20 11:45 88 25 H 130/84 10/19/20 11:39 87 130/84 10/19/20 11:30 90 23 130/84 10/19/20 11:15 83 21 118/67 10/19/20 11:00 80 19 118/67 10/19/20 10:45 86 21 131/78 10/19/20 10:30 86 25 H 131/78 10/19/20 10:15 86 24 121/81 10/19/20 10:00 88 26 H 121/81 10/19/20 09:45 91 H 22 128/73 10/19/20 09:30 84 22 128/73 10/19/20 09:15 83 20 119/64 10/19/20 09:05 87 26 H 10/19/20 09:01 79 20 119/64 10/19/20 08:45 86 22 133/85 10/19/20 08:43 85 10/19/20 08:31 88 25 H 133/85 10/19/20 08:18 90 123/69 10/19/20 08:15 89 23 133/85 10/19/20 08:00 99.8 F H 87 81 18 10/19/20 07:46 91 H 21 133/85 10/19/20 07:30 88 24 133/85 Pulse Ox 10/20/20 06:15 99 10/20/20 06:00 95 10/20/20 05:45 99 10/20/20 05:34 10/20/20 05:30 97 10/20/20 05:15 100 10/20/20 05:01 98 10/20/20 04:45 99 10/20/20 04:30 95 10/20/20 04:15 99 10/20/20 04:00 100 10/20/20 03:45 98 10/20/20 03:30 97 10/20/20 03:15 99 10/20/20 03:00 99 10/20/20 02:45 99 10/20/20 02:31 98 10/20/20 02:30 98 10/20/20 02:15 98 10/20/20 02:00 99 10/20/20 01:45 99 10/20/20 01:30 99 10/20/20 01:15 98 10/20/20 01:00 99 10/20/20 00:45 99 10/20/20 00:31 98 10/20/20 00:15 98 10/20/20 00:05 98 10/20/20 00:01 98 10/20/20 00:00 98 10/19/20 23:45 98 10/19/20 23:31 99 10/19/20 23:15 98 10/19/20 23:00 98 10/19/20 22:45 98 10/19/20 22:30 97 10/19/20 22:15 98 10/19/20 22:10 10/19/20 22:00 99 10/19/20 21:45 98 10/19/20 21:31 10/19/20 21:30 98 10/19/20 21:15 98 10/19/20 21:01 99 10/19/20 20:45 98 10/19/20 20:31 98 10/19/20 20:15 99 10/19/20 20:00 97 10/19/20 19:59 10/19/20 19:45 99 10/19/20 19:30 97 10/19/20 19:15 100 10/19/20 19:10 10/19/20 19:00 95 10/19/20 18:45 99 10/19/20 18:31 99 10/19/20 18:15 99 10/19/20 18:00 97 10/19/20 17:45 100 10/19/20 17:30 99 10/19/20 17:15 100 10/19/20 17:00 98 10/19/20 16:45 99 10/19/20 16:30 97 10/19/20 16:15 100 10/19/20 16:00 96 10/19/20 15:45 99 10/19/20 15:36 100 10/19/20 15:30 95 10/19/20 15:15 99 10/19/20 15:00 99 10/19/20 14:45 100 10/19/20 14:31 99 10/19/20 14:15 100 10/19/20 14:07 10/19/20 14:00 98 10/19/20 13:45 100 10/19/20 13:30 98 10/19/20 13:15 100 10/19/20 13:00 98 10/19/20 12:45 100 10/19/20 12:30 97 10/19/20 12:15 100 10/19/20 12:00 97 10/19/20 11:45 100 10/19/20 11:39 98 10/19/20 11:30 98 10/19/20 11:15 96 10/19/20 11:00 99 10/19/20 10:45 99 10/19/20 10:30 97 10/19/20 10:15 100 10/19/20 10:00 98 10/19/20 09:45 100 10/19/20 09:30 97 10/19/20 09:15 99 10/19/20 09:05 10/19/20 09:01 98 10/19/20 08:45 100 10/19/20 08:43 99 10/19/20 08:31 100 10/19/20 08:18 10/19/20 08:15 100 10/19/20 08:00 96 10/19/20 07:46 100 10/19/20 07:30 98 Intake and Output 10/19/20 10/20/20 10/20/20 22:59 06:59 14:59 Intake Total 820 720 Output Total 1700 1000 Balance -880 -280 Intake: IV 100 FLAGYL 500 MG/100 ML 500 100 mg In 100 ml @ 100 mls/hr IV Q8H [facility] Rx#:[id number] Intake, Free Water 200 200 Tube Feeding 520 520 Output: Urine 1700 1000 Indwelling Catheter 1700 1000 Other: Total, Intake Amount 65 65 Total, Output Amount 300 1000 Voiding Method Indwelling Catheter Indwelling Catheter Weight 118.1 kg - Exam Abdomen: Present: soft (obese ), other (incision well-approximating, no drainage noted ) Extremities: Present: edema - Labs Labs: Abnormal lab results 10/19/20 10/20/20 Range/Units 09:57 05:40 POC Glucose 122 H 109 H (70-105) mg/dL
[2020-10-20] MEDS: SODIUM BICARBONATE 650 MG TAB PO SCH ×3 (08:32→20:43)
[2020-10-20] MEDS: IPRATROPIUM/ALBUTEROL SULFATE 3 ML AMPUL.NEB IH SCH ×2 (09:02→15:43)
[2020-10-20 09:11] LABS: Blood Urea Nitrogen 16 mg/dL (7-17); Calcium 9.4 mg/dL (8.4-10.2); Hemolysis Index 11
--- NOTE | 2020-10-20 09:21 | Progress Note ---
Assessment and Plan Assessment and plan: 30 year old -[place] female CHE 10/25/20 at 36w5d who presents with seizures in triage on 10/02/20. Pt was not able to provide history but per pt's , she presented to the hospital to return a 24 hour urine specimen for analysis. She then suddenly reported that she did not feel good. She was taken to labor and delivery and shortly after arrival, she began seizing. During this time, a code met was called because the patient became hypoxic. She was then noted to be without a pulse. Chest compressions were started immediately, and the patient was emergently taken to the operating room for delivery of the fetus. Off note, This patient has had care at [facility] with comanagement by [facility] since 11 wks complicated by ADHD, morbid obesity, generalized anxiety disorder, panic attacks, chronic narcotic use, fibromyalgia, GERD, Irritable Bowel Syndrome, Migraines, h/o endometrial ablation and ovarian vein embolization, genital herpes, insomnia, LGA fetus, nausea and vomiting, polyhydramnios, quad screen positive for Down's Syndrome, and previous x 3. She is GBS negative. (1) Acute respiratory failure with hypoxia (2) Preeclampsia (3) Cardiac arrest (4) DIC (disseminated intravascular coagulation) (5) Shock (6) ADOLPH (acute kidney injury) (7) DVT SVT in the RUE 11:30: Pt brought to L&D triage for evaluation of possible labor. Pt accompanied by her spouse. Pt spouse poor historian; unable to obtain history- allergies at this time. Pt taken from registration to triage area via WC. Pt unresponsive, actively seizing with snorous respirations. credentials specialist, Kassy, called and requesting assistance. 11:35: Multiple staff at bedside. Pt 02 sat 67% on nonrebreather, unable to read BP at this time. Yifan Theodore CRNA, at bedside for intubation and assistance with IV insertion. INT attempt by multiple RNs unsuccessful at this time. 11:42: Pt being bagged by KORIN, 02% 79%. No pulse palpated, compressions started at this time; bharati young called and Dr. Newberry preparing OR for emergent c/s. 11:44: Continued compressions on stretcher while transporting pt to OR 1. Pt being bagged with jaw thrust manuever in place by KORIN Stringer student. 11:45: Arrival to OR 1. Dr. Newberry and Dr. Portillo present for emergent c/s. Code team arrived for continued care. patient revived and c/s done Patient has been bleeding from C/s site followed by supracervical hysterectomy for severe bleeding Patient transfused multiple units of PRBC, Patient in DIC. Transferred to the ICU 10/03. Patient seen and examined at bedside this morning. Patient is nonresponsive and mechanically ventilated. On pressors. Labs reviewed-has constanza kocytosis, anemia, thrombocytopenia, ADOLPH and lactic acidosis. Started on IV antibiotics to cover possible sepsis secondary to DIC. Hematology oncology recommendations appreciated-needs additional cryoprecipitate and FFP. Monitor D-dimer, fibrinogen and frequent labs. Nephrology consulted for lactic acidosis and ADOLPH. 10/04. Remains mechanically ventilated. [place] antibiotics. Labs shows improved acidosis - lactic acid 3.5. Hb drop noted. Getting transfused 2 units PRBCs. Platelet count is ~40k. Continue to monitor labs closely. Critical care team on board. 10/05; xray reviewed, concerning for multifocal infilrate, likely underlying Pneumonia, will add ID consult to assist with management of this critically ill patient, start tube feed, closely monitor renal system 10/06: Resumed care, remains on mechanical ventilation. No active bleeding, H&H stable. Continue to monitor CBC and BMP. Continue IV antibiotic for underlying pneumonia. Follow critical care and ID recommendation. 10/07: Remains on mechanical ventilation. No active bleeding, H&H stable. Critical care following, wean off ventilation as tolerated. 10/08: Patient had another cardiac arrest last night. Remains on mechanical ventilation, update family. Continue supportive care -poor prognosis 10/09: Called patient mother and discussed about patient care and management. Answered all question to best of my knowledge and family satisfaction. Patient remains on mechanical ventilation, cardiac arrest x2 so far. Critically sick, poor prognosis 10/10: remains on mechanical ventilation. h/h stable, no active bleeding. monitor CBC/BMP 10/11: WBC trended up with diarrhea, started on vancomycin po. remains on MV, off pressor, tolerating TF 10/12: remains on MV, off pressor, tolerating TF. called family for update but unable to reach, could not leave message as it was full. cont supportive care, wean off vent as tolerated. 10/13/2020; patient is on mechanical ventilation, tolerating tube feeding. Edis damian has labored breathing. Neuro was consulted and recommend MRI. Patient is on Precedex. Rectal tube in place. 10/14/2020; patient is on mechanical ventilation, Precedex. Patient had fever and blood culture ordered. Patient is on IV vancomycin per ID recommendation. Neuro consulted and recommend MRI. Continue to monitor. Prognosis is guarded. 10/15/2020; patient is on mechanical ventilation, Precedex. Patient had fever and blood culture ordered. Patient is on IV vancomycin per ID recommendation. Neuro consulted and recommend MRI. Continue to monitor. Prognosis is guarded. 10/17: Remains with C.DIFF and Bactermia, Poor prognosis. No purposful movement. MRI and EEG discussed with Intensvisit, Continue aggressive BP control. 10/18: Blood pressure better controlled MRI done 10/15 shows mild improvement in edema. We will continue to monitor mother was at bedside yesterday. Nursing documentation trach and PEG discussed with the mother including goals of care. She is still in denial about the gravity of her daughters her condition which is understandable considering her age. Continue aggressive management at this time. Await for bacteremia to clear by ID before placing PICC line. 10/19: Patient for possible PEG and Trach, ID following, repeat cultures remain negative. Poor prognosis 10/20: Pt noted to DVT and SVT in the RUE, Vascular consult and will also obtain Hematology for possible considering changing in Anticoagulation. CONTINUE TO MONITOR H/H and PLT. Family updated by [employer]ens[employer]. Heparin gtt started. Will check CBC and BMP The high probability of a clinically significant, sudden or life threatening deterioration of the [MULTIPLE ORGAN] system(s) required my full and direct attention, intervention and personal management. The aggregate critical care time was [35] minutes. This time is in addition to time spent performing reported procedures but includes the following: [X] Data Review and interpretation [X] Patient assessment and monitoring of vital signs [X] Documentation [X] Medication orders and management History Interval history: Patient seen and examined, remains critical ill on the ventilator, Hospitalist Physical - Physical exam Narrative exam: VITAL SIGNS: Reviewed. GENERAL: Intubated HEAD: No signs of head trauma. Opens her eyes but no purposeful movement EYES: Pupils are equal. MOUTH: OT in place NECK: No adenopathy, no JVD. CHEST: Rales posteriorly CARDIAC: normal S1 and S2, without murmurs, gallops, or rubs. ABDOMEN: Soft, non tender and non distended. surgical wound in tact, No rebound or guarding, and no masses palpated. Bowel Sounds normal. AVINASH drain intact with bloody fluid MUSCULOSKELETAL: No edema NEUROLOGIC EXAM: Intubated SKIN: No obvious lesions - Constitutional Vitals: Temp Pulse Resp BP Pulse Ox 99.6 F 102 H 26 H 154/88 99 10/20/20 08:00 10/20/20 09:02 10/20/20 09:02 10/20/20 08:32 10/20/20 08:25 General appearance: Present: obese, other (sedated) HEART Score - HEART Score Age: < 45 Risk factors: 1-2 risk factors - Critical Actions Critical Actions: >7 pts:50-65% risk of adverse cardiac event. Early invasive measures Results - Labs CBC & Chem 7: 10/17/20 04:57 10/20/20 07:59 Labs: Laboratory Last Values WBC 15.2 K/mm3 (4.5-11.0) H 10/17/20 04:57 RBC 3.43 M/mm3 (3.65-5.03) L 10/17/20 04:57 Hgb 10.1 gm/dl (10.1-14.3) 10/17/20 04:57 Hct 31.2 % (30.3-42.9) 10/17/20 04:57 MCV 91 fl (79-97) 10/17/20 04:57 MCH 29 pg (28-32) 10/17/20 04:57 MCHC 32 % (30-34) 10/17/20 04:57 RDW 18.1 % (13.2-15.2) H 10/17/20 04:57 Plt Count 366 K/mm3 (140-440) 10/17/20 04:57 Lymph % (Auto) 6.3 % (13.4-35.0) L 10/11/20 04:00 Edmunds % (Auto) 5.4 % (0.0-7.3) 10/11/20 04:00 Eos % (Auto) 0.9 % (0.0-4.3) 10/11/20 04:00 Baso % (Auto) 0.3 % (0.0-1.8) 10/11/20 04:00 Lymph # (Auto) 1.7 K/mm3 (1.2-5.4) 10/11/20 04:00 Edmunds # (Auto) 1.5 K/mm3 (0.0-0.8) H 10/11/20 04:00 Eos # (Auto) 0.3 K/mm3 (0.0-0.4) 10/11/20 04:00 Baso # (Auto) 0.1 K/mm3 (0.0-0.1) 10/11/20 04:00 Add Manual Diff Complete 10/15/20 05:50 Total Counted 100 10/15/20 05:50 Seg Neutrophils % 87.1 % (40.0-70.0) H 10/11/20 04:00 Seg Neuts % (Manual) 90.0 % (40.0-70.0) H 10/15/20 05:50 Band Neutrophils % 2.0 % 10/15/20 05:50 Lymphocytes % (Manual) 4.0 % (13.4-35.0) L 10/15/20 05:50 Reactive Lymphs % (Man) 1.0 % 10/02/20 12:18 Monocytes % (Manual) 4.0 % (0.0-7.3) 10/15/20 05:50 Eosinophils % (Manual) 1.0 % (0.0-4.3) 10/14/20 04:00 Myelocytes % 2.0 % 10/02/20 13:05 Metamyelocytes % 1.0 % 10/14/20 04:00 Nucleated RBC % Not Reportable 10/15/20 05:50 Seg Neutrophils # 23.5 K/mm3 (1.8-7.7) H 10/11/20 04:00 Seg Neutrophils # Man 20.9 K/mm3 (1.8-7.7) H 10/15/20 05:50 Band Neutrophils # 0.5 K/mm3 10/15/20 05:50 Lymphocytes # (Manual) 0.9 K/mm3 (1.2-5.4) L 10/15/20 05:50 Abs React Lymphs (Man) 0.0 K/mm3 10/15/20 05:50 Monocytes # (Manual) 0.9 K/mm3 (0.0-0.8) H 10/15/20 05:50 Eosinophils # (Manual) 0.0 K/mm3 (0.0-0.4) 10/15/20 05:50 Basophils # (Manual) 0.0 K/mm3 (0.0-0.1) 10/15/20 05:50 Metamyelocytes # 0.0 K/mm3 10/15/20 05:50 Myelocytes # 0.0 K/mm3 10/15/20 05:50 Promyelocytes # 0.0 K/mm3 10/15/20 05:50 Blast Cells # 0.0 K/mm3 10/15/20 05:50 WBC Morphology Not Reportable 10/15/20 05:50 Hypersegmented Neuts Not Reportable 10/15/20 05:50 Hyposegmented Neuts Not Reportable 10/15/20 05:50 Hypogranular Neuts Not Reportable 10/15/20 05:50 Smudge Cells Not Reportable 10/15/20 05:50 Toxic Granulation Not Reportable 10/15/20 05:50 Toxic Vacuolation Not Reportable 10/15/20 05:50 Dohle Bodies Not Reportable 10/15/20 05:50 Pelger-Huet Anomaly Not Reportable 10/15/20 05:50 Ester Rods Not Reportable 10/15/20 05:50 Platelet Estimate Consistent w auto 10/15/20 05:50 Clumped Platelets Not Reportable 10/15/20 05:50 Plt Clumps, EDTA Not Reportable 10/15/20 05:50 Large Platelets Not Reportable 10/15/20 05:50 Giant Platelets Not Reportable 10/15/20 05:50 Platelet Satelliting Not Reportable 10/15/20 05:50 Plt Morphology Comment Not Reportable 10/15/20 05:50 RBC Morphology Not Reportable 10/15/20 05:50 Dimorphic RBCs Not Reportable 10/15/20 05:50 Polychromasia Not Reportable 10/15/20 05:50 Hypochromasia Few 10/15/20 05:50 Poikilocytosis Not Reportable 10/15/20 05:50 Anisocytosis 1+ 10/15/20 05:50 Microcytosis Not Reportable 10/15/20 05:50 Macrocytosis Not Reportable 10/15/20 05:50 Spherocytes Not Reportable 10/15/20 05:50 Pappenheimer Bodies Not Reportable 10/15/20 05:50 Sickle Cells Not Reportable 10/15/20 05:50 Target Cells Not Reportable 10/15/20 05:50 Tear Drop Cells Not Reportable 10/15/20 05:50 Ovalocytes Not Reportable 10/15/20 05:50 Stomatocytes Few 10/14/20 04:00 Helmet Cells Not Reportable 10/15/20 05:50 Burk-[place] Bodies Not Reportable 10/15/20 05:50 [place] Rings Not Reportable 10/15/20 05:50 [place] Cells Not Reportable 10/15/20 05:50 Bite Cells Not Reportable 10/15/20 05:50 Crenated Cell Not Reportable 10/15/20 05:50 Elliptocytes Not Reportable 10/15/20 05:50 Acanthocytes (Spur) Not Reportable 10/15/20 05:50 Rouleaux Not Reportable 10/15/20 05:50 Hemoglobin C Crystals Not Reportable 10/15/20 05:50 Schistocytes Not Reportable 10/15/20 05:50 Malaria parasites Not Reportable 10/15/20 05:50 Sharad Bodies Not Reportable 10/15/20 05:50 Hem Pathologist Commnt No 10/15/20 05:50 PT 13.0 Sec. (12.2-14.9) 10/05/20 05:00 INR 1.00 (0.87-1.13) 10/05/20 05:00 APTT 31.6 Sec. (24.2-36.6) 10/03/20 00:40 Fibrinogen 336 mg/dl (211-480) 10/04/20 10:00 D-Dimer > 74092 ng/mlDDU (0-234) H 10/04/20 10:00 ABG pH 7.473 (7.320-7.450) H 10/13/20 07:18 POC ABG pCO2 20.7 mmHg (32.0-48.0) L 10/13/20 07:18 ABG pCO2 25.0 mm Hg 10/10/20 04:42 POC ABG pO2 137.9 mmHg (83-108) H 10/13/20 07:18 ABG pO2 95.2 mm Hg (80.0-90.0) H 10/10/20 04:42 POC ABG HCO3 14.8 10/13/20 07:18 ABG HCO3 20.6 mmol/L (20.0-26.0) 10/10/20 04:42 ABG O2 Saturation 97.9 % (95.0-99.0) 10/10/20 04:42 ABG O2 Content 15.4 (0.0-44) 10/10/20 04:42 POC ABG Base Excess -6.9 10/13/20 07:18 ABG Base Excess -0.8 mmol/L (-2.0-3.0) 10/10/20 04:42 ABG Hemoglobin 11.2 (12.0-17.5) L 10/13/20 07:18 ABG Oxyhemoglobin 98.3 (94-98) H 10/13/20 07:18 ABG Carboxyhemoglobin 1.4 % (0.0-5.0) 10/10/20 04:42 ABG Methemoglobin 0.3 (0.0-1.5) 10/13/20 07:18 ABG Sodium 135.9 mmol/L (136.0-145.0) L 10/13/20 07:18 ABG Potassium 3.7 mmol/L (3.40-4.50) 10/13/20 07:18 ABG Chloride 111.0 mmol/L (98-107) H 10/13/20 07:18 ABG Glucose 109 mg/dL (65-95) H 10/13/20 07:18 VBG pH 6.949 (7.320-7.420) L* 10/02/20 Unknown Oxyhemoglobin 95.9 % (95.0-99.0) 10/10/20 04:42 Carboxyhemoglobin 0.3 (0.5-1.5) L 10/13/20 07:18 FiO2 30.0 10/13/20 07:18 Sodium 138 mmol/L (137-145) 10/20/20 07:59 Potassium 4.1 mmol/L (3.6-5.0) 10/20/20 07:59 Chloride 104.5 mmol/L (98-107) 10/20/20 07:59 Carbon Dioxide 23 mmol/L (22-30) 10/20/20 07:59 Anion Gap 15 mmol/L 10/20/20 07:59 BUN 16 mg/dL (7-17) 10/20/20 07:59 Creatinine 0.6 mg/dL (0.6-1.2) 10/15/20 05:50 Estimated GFR > 60 ml/min 10/15/20 05:50 BUN/Creatinine Ratio 20 % 10/15/20 05:50 Glucose 106 mg/dL (65-100) H 10/20/20 07:59 POC Glucose 109 mg/dL (70-105) H 10/20/20 05:40 Lactic Acid 1.90 mmol/L (0.7-2.0) 10/04/20 22:00 Uric Acid 7.5 mg/dL (3.5-7.6) 10/02/20 13:05 Calcium 9.4 mg/dL (8.4-10.2) 10/20/20 07:59 Ionized Calcium 4.4 mg/dL (4.8-5.6) L 10/07/20 21:00 Phosphorus 4.00 mg/dL (2.5-4.5) 10/20/20 07:59 Magnesium 1.80 mg/dL (1.7-2.3) 10/20/20 07:59 Total Bilirubin 0.90 mg/dL (0.1-1.2) 10/10/20 04:00 AST 122 units/L (5-40) H 10/10/20 04:00 ALT 81 units/L (7-56) H 10/10/20 04:00 Alkaline Phosphatase 94 units/L (35-129) 10/10/20 04:00 Lactate Dehydrogenase 769 units/L (91-180) H 10/02/20 13:05 NT-Pro-B Natriuret Pep 2788 pg/mL (0-450) H 10/04/20 10:00 Total Protein 5.2 g/dL (6.3-8.2) L 10/10/20 04:00 Albumin 2.7 g/dL (3.9-5) L 10/10/20 04:00 Albumin/Globulin Ratio 1.1 % 10/10/20 04:00 Procalcitonin 0.58 ng/mL (<0.15) 10/11/20 15:33 Arterial Blood Glucose 109 mg/dL (65-95) H 10/13/20 07:18 Arterial Blood Ionized Calcium 4.6 mg/dL (4.6-5.3) 10/13/20 07:18 Urine Color Yellow (Yellow) 10/11/20 13:26 Urine Turbidity Clear (Clear) 10/11/20 13:26 Urine pH 7.0 (5.0-7.0) 10/11/20 13:26 Ur Specific [place] 1.014 (1.003-1.030) 10/11/20 13:26 Urine Protein 100 mg/dl mg/dL (Negative) 10/11/20 13:26 Urine Glucose (UA) Neg mg/dL (Negative) 10/11/20 13:26 Urine Ketones Neg mg/dL (Negative) 10/11/20 13:26 Urine Blood Mod (Negative) 10/11/20 13:26 Urine Nitrite Neg (Negative) 10/11/20 13:26 Urine Bilirubin Neg (Negative) 10/11/20 13:26 Urine Urobilinogen < 2.0 mg/dL (<2.0) 10/11/20 13:26 Ur Leukocyte Esterase Sm (Negative) 10/11/20 13:26 Urine WBC (Auto) 24.0 /HPF (0.0-6.0) H 10/11/20 13:26 Urine RBC (Auto) 59.0 /HPF (0.0-6.0) 10/11/20 13:26 Urine Bacteria (Auto) 1+ /HPF (Negative) 10/11/20 13:26 Urine Mucus Few /HPF 10/11/20 13:26 Random Vancomycin 10.7 ug/mL (0-40.0) 10/16/20 13:09 Phenytoin 5.7 ug/mL (10.0-20.0) L 10/13/20 07:00 C. difficile Tox (PCR) Positive (Negative) 10/16/20 10:22 Coronavirus (PCR) Negative (Negative) 10/08/20 14:15 Blood Type O POSITIVE 10/02/20 12:50 Antibody Screen Negative 10/02/20 12:50 Crossmatch See Detail 10/02/20 12:50 Microbiology: Microbiology 10/15/20 16:55 Peripheral/Venous Blood Culture - Preliminary NO GROWTH AFTER 4 DAYS - Diagnostic Impressions Diagnostic Impressions: Echocardiogram 10/03/20 13:42 Transthoracic Echocardiogram Indication: S/P Cardiac Arrest R/O Cardiomyopathy BP: 133/71 Conclusions *Global left ventricular systolic function is normal. *The estimated ejection fraction is 60-65%. *There is trace of mitral regurgitation. *The right 0heart chambers are both slightly dilated. *There is mild tricuspid regurgitation. *There is mild-moderate pulmonary hypertension. *The right ventricular systolic pressure is calculated at 44 mmHg. *The study quality is technically difficult. Findings Procedure Info: The study quality is technically difficult. The study is technically limited due to patient body habitus. The study was technically limited due to the patient's inability to lay in the left lateral decubitus position. Left Ventricle: The left ventricular chamber size is normal. There is no left ventricular hypertrophy. Global left ventricular systolic function is normal. The estimated ejection fraction is 60-65%. Left Atrium: The left atrial chamber size is normal. Right Ventricle: The right ventricle is slightly dilated. Right Atrium: The right atrium is mildly dilated. Aortic Valve: The aortic valve leaflets are mildly thickened. There is no evidence of aortic regurgitation. There is no evidence of aortic stenosis. Mitral Valve: The mitral valve leaflets are mildly thickened. There is trace of mitral regurgitation. There is no evidence of mitral stenosis. Tricuspid Valve: There is mild tricuspid regurgitation. The right ventricular systolic pressure is calculated at 44 mmHg. There is evidence of mild pulmonary hypertension. Pulmonic Valve: There is trace pulmonic regurgitation. Pericardium: There is no pericardial effusion. Aorta: There is no dilatation of the ascending aorta. There is no dilatation of the aortic root. Venous: The inferior vena cava is dilated. Measurements Chambers 2D Name Value Normal Range IVSd (2D) 1 cm (0.6 - 1.1) LVPWd (2D) 1.01 cm (0.6 - 1.1) LVIDd (2D) 4.58 cm (3.7 - 5.6) LVIDs (2D) 3.17 cm (2 - 3.8) LV FS (2D) 30.93 % - EF Teichholz (2D) 58.66 % - Ao root diameter (2D) 2.94 cm (2 - 3.7) Volumes/Mass Name Value Normal Range LA ESV SP 4CH (A/L) 72.82 ml - LA ESV SP 2CH (A/L) 66.86 ml - LA ESV BP (A/L) 74.49 ml - LA ESV SP 4CH (MOD) 71.03 ml - LA ESV SP 2CH (MOD) 64.3 ml - LV EDV SP 4CH (MOD) 98.82 ml - LV ESV SP 4CH (MOD) 24.8 ml - EF SP 4CH (MOD) 74.9 % - LV EDV SP 2CH (MOD) 86.1 ml - LV ESV SP 2CH (MOD) 36.93 ml - EF SP 2CH (MOD) 57.11 % - LV EDV BP 94.4 ml - LV ESV BP 32.66 ml - BP EF (MOD) 65.4 % - Diastolic/Systolic Function Name Value Normal Range MV E-wave Vmax 1.04 m/sec - MV deceleration time 160.46 msec - MV A-wave Vmax 0.92 m/sec - MV E:A ratio 1.14 ratio - Aortic Valve Name Value Normal Range AV Vmax 2.12 m/sec - AV VTI 22.37 cm - AV peak gradient 17.95 mmHg - AV mean gradient 7.29 mmHg - LVOT diameter 2.01 cm - LVOT Vmax 1.8 m/sec - LVOT VTI 27.17 cm - LVOT peak gradient 12.91 mmHg - LVOT mean gradient 6.83 mmHg - SV LVOT 86.42 ml - ANITA (continuity Vmax) 2.7 cm2 - ANITA (continuity VTI) 3.86 cm2 - Ascending Ao 3.18 cm - Tricuspid Valve Name Value Normal Range TV E-wave Vmax 0.88 m/sec - TR Vmax 3.01 m/sec - TR peak gradient 36.27 mmHg - RAP 8 mmHg - RVSP 44 mmHg - IVC diameter 2.65 cm (1.2 - 2.3) Pulmonic Valve/Qp:Qs Name Value Normal Range PV Vmax 1.22 m/sec - PV peak gradient 5.91 mmHg - RVOT Vmax 0.87 m/sec - RVOT VTI 13.32 cm - RVOT peak gradient 3 mmHg - PV acceleration time 110.37 msec - [place]/IV: Voiding Method Indwelling Catheter IV Catheter Type [Right Hand] INT / Saline Lock IV Catheter Type [Right INT / Saline Lock Antecubital] IV Catheter Type [Right Upper PICC Line arm] IV Catheter Type [Left Triple Lumen Cath Internal Jugular] IV Catheter Type [Left Hand] Peripheral IV IV Catheter Type [Left Peripheral IV Antecubital] Active Medications - Current Medications Current Medications: Generic Name Dose Route Start Last Admin Trade Name Freq PRN Reason Stop Dose Admin Acetaminophen 650 mg 10/05/20 16:34 10/16/20 00:13 Acetaminophen 325 Mg/10.15 Ml Oral Liqd Unit Dose FEEDTUBE 650 mg Q6H PRN Administration Non Cardiac Pain or Temp>100.5 Albuterol/Ipratropium 1 ampul 10/10/20 20:00 10/20/20 09:02 Ipratropium/Albuterol Sulfate 3 Ml Ampul.Neb IH 1 ampul Q8HRT ERINN Administration Lipase/Protease/Amylase 1 each 10/05/20 11:09 Lipase 10,500/Protease 25,000/Amylase 43,750 (Units) Dr Barakat FEEDTUBE PRN PRN For Clogged Feeding Tube Enoxaparin Sodium 120 mg 10/19/20 16:00 10/19/20 21:32 Enoxaparin 120 Mg/0.8 Ml Inj SUB-Q 120 mg BID ERINN Administration Protocol Famotidine 20 mg 10/07/20 10:00 10/19/20 21:31 Famotidine 20 Mg Tab PO 20 mg BID ERINN Administration Furosemide 40 mg 10/17/20 10:00 10/19/20 09:49 Furosemide 40 Mg Tab PO 40 mg QDAY ERINN Administration Hydralazine HCl 20 mg 10/07/20 11:49 10/17/20 07:20 Hydralazine 20 Mg/1 Ml Inj IV 20 mg Q6H PRN Administration SBP >170 Hydralazine HCl 50 mg 10/17/20 09:00 10/20/20 05:34 Hydralazine 25 Mg Tab PO 50 mg Q8HR ERINN Administration Hydrophilic Ointment 1 applic 10/04/20 06:55 Lip Therapy Vaseline TP Q2HR PRN Dry Lips Dextrose 1,000 mls @ 75 mls/hr 10/13/20 11:00 10/19/20 16:59 D10w IV 75 mls/hr DIRECT ERINN Administration Cefepime HCl 2 gm in 100 mls @ 200 mls/hr 10/14/20 22:00 10/19/20 21:29 Cefepime/Ns 2 Gm/100 Ml IV 200 mls/hr Q12HR ERINN Administration Protocol Metronidazole 500 mg in 100 mls @ 100 mls/hr 10/14/20 13:00 10/20/20 05:34 Flagyl 500 Mg/100 Ml IV 100 mls/hr Q8H ERINN Administration Protocol Vancomycin HCl 1,750 mg/ 535 mls @ 333.333 mls/hr 10/20/20 02:00 10/20/20 01:35 Sodium Chloride IV 333.333 mls/hr Q12H ERINN Administration Labetalol HCl 300 mg 10/17/20 09:00 10/20/20 08:32 Labetalol 100 Mg Tab PO 300 mg TID ERINN Administration Multi-Ingred Cream/Lotion/Oil/Oint 1 applic 10/04/20 06:55 Mineral Oil/Petrolatum, White Ophth Oint 3.5 Gm OU Q4HR PRN Dry Eye(s) Simple Syrup 15 ml 10/05/20 11:09 Simple Syrup 15 Ml FEEDTUBE PRN PRN Hypoglycemia Simple Syrup 30 ml 10/05/20 11:09 Simple Syrup 15 Ml FEEDTUBE PRN PRN Hypoglycemia Sodium Bicarbonate 325 mg 10/05/20 11:09 Sodium Bicarbonate 325 Mg Tab FEEDTUBE PRN PRN For Clogged Feeding Tube Sodium Bicarbonate 1,300 mg 10/13/20 14:00 10/20/20 08:32 Sodium Bicarbonate 650 Mg Tab PO 1,300 mg TID ERINN Administration Topiramate 50 mg 10/05/20 11:00 10/19/20 21:31 Topiramate Tab 25 Mg Tab PO 50 mg Q12HR ERINN Administration Vancomycin HCl 125 mg 10/19/20 18:00 10/20/20 05:34 Vancomycin 250 Mg/10 Ml Oral Liqd PO 125 mg Q6HR ERINN Administration Protocol Nutrition/Malnutrition Assess - Dietary Evaluation Nutrition/Malnutrition Findings: Nutrition Notes Start: 10/04/20 11:13 Freq: Status: Active Protocol: Document 10/15/20 08:34 MEY (Rec: 10/15/20 08:39 [email or web address] [id number]) Nutrition Notes Initial or Follow up Reassessment Current Diagnosis Acute Kidney Injury, Respiratory Failure Other Pertinent Diagnosis Cardiac arrest, s/p c-sectuion and supracervial hysterectomy Current Diet Vital AF 1.2 at 65ml/hr Labs/Tests Reviewed Pertinent Medications Reviewed Height 5 ft 8 in Weight 118 kg [place] Body Weight (kg) 63.63 BMI 39.5 Weight change and time frame Wt change noted Weight Status Morbidly Obese Subjective/Other Information FU for TF tolerance. Observed TF running at goal rate and per RN pt is tolerating. Percent of energy/protein needs met: 100%/74% Burn Absent Trauma Absent GI Symptoms None Food Allergy Yes Current % PO Negligible Minimum of two criteria No Fluid Accumulation Mild (non-severe) #1 Nutrition Diagnosis Inadequate oral intake Diagnosis Progress(for reassessment Continues documentation) Is patient on ventilator? Yes Is Patient Ambulatory and/or Out of Bed No REE-([facility]-confined to bed) 2327.856 Kcal/Kg value to use for calculation 15 Approximate Energy Requirements Using 1770 kcal/Kg Calculation Used for Recommendations Kcal/kg Additional Notes Protein needs are up to 159g ( up to 2.5g/kg) Fluid needs are 1ml/kcal Nutrition Intervention Change Diet Order: Continue TF Nutrition Support: Vital AF 1.2 at 65 ml/hr. Flush with 100 ml q4h Kcal 1,872 Protein (gm) 117 Fluid (mL) 1,265 Goal #1 Meet at least 75% of energy and protein needs via TF Anticipated Discharge Needs: Unable to determine at this time Follow-Up By: 10/22/20 Additional Comments FU for TF tolerance
[2020-10-20 09:32] LABS: BUN/Creatinine Ratio 27
[2020-10-20] MEDS: CEFEPIME/NS 2 GM/100 ML 2 GM/100 ML BAG IV SCH ×2 (09:34→22:43)
[2020-10-20] MEDS: ENOXAPARIN 120 MG/0.8 ML INJ SUB-Q SCH (09:35)
[2020-10-20] MEDS: FUROSEMIDE 40 MG TAB PO SCH (09:35)
[2020-10-20] MEDS: TOPIRAMATE TAB 25 MG TAB PO SCH ×2 (09:35→22:43)
[2020-10-20] MEDS: FAMOTIDINE 20 MG TAB PO SCH ×2 (09:35→22:42)
--- NOTE | 2020-10-20 09:48 | Progress Note ---
Assessment and Plan 30 y/o female with Eclampsia, s/p emergent section with DIC, acute respiratory failure and worsening renal function. 10/20/20: NPO after midnight. DVT study just read from 10/14 on yesterday showing upper ext DVT. Started on Lovenox but need to hold therapy until after surgery. could be source of fevers. No sedation. 10/19/20: Stable BP. Will meet/talk with family at noon over the phone with myself and case management. Need to discuss goals of care and what next steps would be. Patient would need trach and peg and transfer to LTACH if family ok with this. Follow up speciation of GNR's in blood. Has been on Cefepime. Continues therapy for C. Diff. Guarded prognosis. Continue daily PSV trials but not ready for extubation secondary to mental state. 10/18/20: Blood pressure is much better with the addition of meds started on yesterday. Need to have family meeting jesica in regards to goals of care. Continue Daily PSV trials but not ready for extubation. Continue therapy for C. Diff per ID. 10/17/20: CT scan was of no help in regards to fevers. C. Diff is positive and BP now is more uncontrolled despite increasing labetalol. Today will increase to 300 TID. Added TID Hydralazine and added PO lasix given her mild pulmonary htn seen on echo. Spoke with mother over the phone and she requests to come see the patient. Given current circumstances, will allow her to come briefly today and then will speak with her at the bedside. No neurology is available at the time and suspect these will be the majority of her questions. Tolerated PSV briefly yesterday and will do again today but not for extended periods as given her mental state she is not a candidate for extubation. I will also ask the mother about nursing home care (trach and peg) when she comes today. Overall prognosis is guarded to poor. If oral meds cannot regulate blood pressure, may need Cardene drip. Continue therapy for C. Diff per ID. 10/16/20: Needs a different consent for CT of abdomen and pelvis. I have signed the one in the chart. The nurse who obtained the first consent did obtain consent for contrast, it just wasn't listed on the that consent. Await neurology input on EEG vs MRI findings. Patient has now been intubated 14 days. Need to have family meeting to discuss goals of care but I suspect family will want to hear from Neurology as well. Tolerating PSV trials but will only do briefly as patient is not a candidate for extubation today. Will increase labetalol to 200 TID based on MRI report. Overall prognosis is guarded to poor. 10/15/2020: MRI and CT's today. Continue Precedex and PRN fent pushes. ID ordered C. Diff test. Continue D10 and tube feeds. Continue vent support. Suspect patient will need trach and peg. 10/14/2020: Await MRI. Continue Precedex and only use PRN fent pushes. CM states that there is a . Now with persistent fever, will obtain CT abd omen pelvis with contrast to see if source for fevers can be found. Continue D10 as sugars are still not elevated. 10/12/2020: Patient seen on 10/12 but note entered late. Formal neurology consult today. Hold all sedation if possible and only use precedex. CM to find out if there is truly a or if the decisions would fall on mother as I do not know the ages of her children but I don't think they are of age to make decisions. Guarded prognosis given mental state. 10/08/2020: Will start patient on precedex today. Plan is to wean off fent drip. Will increase buspar to BID. Need to see patient on as little sedation as possible to determine neurological status. EEG has still not been read. Mag stopped yesterday. Largest concern now is neurologic function. 10/07/2020: Head CT unremarkable. Await EEG to be read. Will stop mag Drip. If seizures occur then will load with Keppra and start BID dosing of this. Appreciate OB note. Continue D10 as sugars are still not severely elevated until feeds are at goal. PRN ativan present as well. Will add dilaudid for pain control. Increased BB to TID and added PRN hydralazine 10/06/2020: Stat Head CT today. Likely needs EEG. Will order. Continue Mag drip and follow up levels. Continue feeds. Continue to wean FiO2 as tolerated. Hold sedatives but can give PRN ativan as needed for seizure activity. Continue D10 as Tube feeds are not at goal yet. Guarded prognosis with mental state. 10/05/2020: Feed today. Stop Albumin and Abx. Will stop D10 once feeds start but will continue q2 hour FSBS until 3 consecutive >180. H/H stable. Will continue to aggressively wean FiO2. Patient has a 6.5 tube that will likely impede PSV trials given her size so will attempt to change out. Also will restart her home meds for anxiety and chronic migraine therapy. Prognosis is still guarded but promising given her hemodynamic stability. Continue chowdhury for accurate urine out put. 10/04/2020: Much improved today. Still very ill however. Down to just one pressor. Still with good urine output. Await chemistry results from this am. Likely can stop Bicarb drip given improvement in pH but would like to see bicarb on blood work. Agree with continued transfusion of blood products. Needs fibrinongen levels as well as repeat coags. I cannot see the standing orders on my screen so will call down to lab and let them know what's needed. I know she has had at leas 2 cryo's but I am not exactly sure if the count is accurate in the computer in regards to PRBC's and FFP's. Platelets lower this am but still greater than 30K. Continue chowdhury for I/O measurement. Will start to wean FiO2 on vent. CXR looks like edema but oxygenation is stable right now. Resuscitation is the most important thing right now. Will continue abx therapy at least 24 more hours. Prognosis is still very guarded but patient showing signs of improvement. 1. CV-Extremely volume deplete as well as intrasvascular depletion. Will continue to bolus with LR and saline as needed. Will add Albumin to help with intravascular volume. Spoke with OB attending over phone yesterday. No acute indication for steroids at this time. Serial H/H's given maximum pressor requirements. Will transfuse to keep up with AVINASH drain and help with weaning. Severely acidotic but improving. Likely adding to pressor requirement. GOAL is map of 65 and will wean accordingly. Will start to wean Sohail first. Ordered art line as well. 2. Heme-DIC secondary to Eclampsia, possible sepsis but white count could be stress related. Will continue to transfuse PRBC's and FFP with Cryo as needed. Follow Fibrinogen levels. Tele Heme has been consulted and note reviewed. Will give one cryo for every 6 units of PRBC's transfused. has gotten one cryo, awaiting the other to thaw out. Plts at 72K right now. Hold on further transfusion. May need to consider Factor VII if execessive bleeding continues. Will also put on broad spec abx therapy incase of possible sepsis causing DIC. Hopeful with correction of coaguloapthy she will improve. 3. Very very guarded prognosis. Will continue aggressive resuscitation. Family to come visit given exceptional case and extremely guarded prognosis. CCT 31 minutes. Subjective Date of service: 10/20/20 Principal diagnosis: Eclampsia/HELLP Syndrome, ADOLPH, DIC; s/p , s/p supracervical hyst Interval history: Eyes continue to be open. Blinked when I swatted at her today. Still not responsive. No sedation. On OR scheduled for tomorrow 729. Objective Vital Signs - 12hr 10/19/20 10/19/20 10/19/20 21:45 22:00 22:10 Temperature Pulse Rate 98 H 103 H Pulse Rate [ 109 H Anterior Bilateral Throughout] Pulse Rate [ From Monitor] Respiratory 28 H 31 H Rate Respiratory 28 H Rate [Anterior Bilateral Throughout] Blood Pressure 134/71 125/71 O2 Sat by Pulse 98 99 Oximetry 10/19/20 10/19/20 10/19/20 22:15 22:30 22:45 Temperature Pulse Rate 106 H 108 H 109 H Pulse Rate [ Anterior Bilateral Throughout] Pulse Rate [ From Monitor] Respiratory 29 H 28 H 28 H Rate Respiratory Rate [Anterior Bilateral Throughout] Blood Pressure 125/71 140/67 140/67 O2 Sat by Pulse 98 97 98 Oximetry 10/19/20 10/19/20 10/19/20 23:00 23:15 23:31 Temperature Pulse Rate 109 H 110 H 113 H Pulse Rate [ Anterior Bilateral Throughout] Pulse Rate [ From Monitor] Respiratory 28 H 28 H 30 H Rate Respiratory Rate [Anterior Bilateral Throughout] Blood Pressure 136/76 136/76 153/81 O2 Sat by Pulse 98 98 99 Oximetry 10/19/20 10/20/20 10/20/20 23:45 00:00 00:01 Temperature 99.2 F Pulse Rate 112 H 116 H 116 H Pulse Rate [ Anterior Bilateral Throughout] Pulse Rate [ 116 H From Monitor] Respiratory 29 H 33 H 33 H Rate Respiratory Rate [Anterior Bilateral Throughout] Blood Pressure 136/76 148/84 O2 Sat by Pulse 98 98 98 Oximetry 10/20/20 10/20/20 10/20/20 00:05 00:15 00:31 Temperature Pulse Rate 109 H 116 H 117 H Pulse Rate [ Anterior Bilateral Throughout] Pulse Rate [ From Monitor] Respiratory 16 30 H 31 H Rate Respiratory Rate [Anterior Bilateral Throughout] Blood Pressure 148/84 148/84 148/79 O2 Sat by Pulse 98 98 98 Oximetry 10/20/20 10/20/20 10/20/20 00:45 01:00 01:15 Temperature Pulse Rate 111 H 108 H 114 H Pulse Rate [ Anterior Bilateral Throughout] Pulse Rate [ From Monitor] Respiratory 25 H 26 H 28 H Rate Respiratory Rate [Anterior Bilateral Throughout] Blood Pressure 148/79 141/78 141/78 O2 Sat by Pulse 99 99 98 Oximetry 10/20/20 10/20/20 10/20/20 01:30 01:45 02:00 Temperature Pulse Rate 114 H 113 H 114 H Pulse Rate [ Anterior Bilateral Throughout] Pulse Rate [ From Monitor] Respiratory 27 H 26 H 26 H Rate Respiratory Rate [Anterior Bilateral Throughout] Blood Pressure 138/81 138/81 154/85 O2 Sat by Pulse 99 99 99 Oximetry 10/20/20 10/20/20 10/20/20 02:15 02:30 02:31 Temperature Pulse Rate 115 H 112 H 117 H Pulse Rate [ Anterior Bilateral Throughout] Pulse Rate [ From Monitor] Respiratory 27 H 12 30 H Rate Respiratory Rate [Anterior Bilateral Throughout] Blood Pressure 154/85 144/90 144/78 O2 Sat by Pulse 98 98 98 Oximetry 10/20/20 10/20/20 10/20/20 02:45 03:00 03:15 Temperature Pulse Rate 116 H 119 H 113 H Pulse Rate [ Anterior Bilateral Throughout] Pulse Rate [ From Monitor] Respiratory 28 H 29 H 26 H Rate Respiratory Rate [Anterior Bilateral Throughout] Blood Pressure 154/85 147/78 147/78 O2 Sat by Pulse 99 99 99 Oximetry 10/20/20 10/20/20 10/20/20 03:30 03:45 04:00 Temperature 97.7 F Pulse Rate 110 H 108 H 111 H Pulse Rate [ Anterior Bilateral Throughout] Pulse Rate [ 111 H From Monitor] Respiratory 22 23 25 H Rate Respiratory Rate [Anterior Bilateral Throughout] Blood Pressure 144/91 144/91 144/91 O2 Sat by Pulse 97 98 100 Oximetry 10/20/20 10/20/20 10/20/20 04:15 04:30 04:45 Temperature Pulse Rate 113 H 112 H 119 H Pulse Rate [ Anterior Bilateral Throughout] Pulse Rate [ From Monitor] Respiratory 26 H 27 H 30 H Rate Respiratory Rate [Anterior Bilateral Throughout] Blood Pressure 141/92 141/92 O2 Sat by Pulse 99 95 99 Oximetry 10/20/20 10/20/20 10/20/20 05:01 05:15 05:30 Temperature Pulse Rate 120 H 117 H 103 H Pulse Rate [ Anterior Bilateral Throughout] Pulse Rate [ From Monitor] Respiratory 32 H 33 H 26 H Rate Respiratory Rate [Anterior Bilateral Throughout] Blood Pressure 144/96 144/96 132/90 O2 Sat by Pulse 98 100 97 Oximetry 10/20/20 10/20/20 10/20/20 05:34 05:45 06:00 Temperature Pulse Rate 109 H 108 H 118 H Pulse Rate [ Anterior Bilateral Throughout] Pulse Rate [ From Monitor] Respiratory 23 30 H Rate Respiratory Rate [Anterior Bilateral Throughout] Blood Pressure 132/90 144/96 134/95 O2 Sat by Pulse 99 95 Oximetry 10/20/20 10/20/20 10/20/20 06:15 08:00 08:25 Temperature 99.6 F Pulse Rate 121 H 121 H Pulse Rate [ Anterior Bilateral Throughout] Pulse Rate [ From Monitor] Respiratory 31 H Rate Respiratory Rate [Anterior Bilateral Throughout] Blood Pressure 134/95 154/88 O2 Sat by Pulse 99 99 Oximetry 10/20/20 10/20/20 08:32 09:02 Temperature Pulse Rate 121 H Pulse Rate [ 102 H Anterior Bilateral Throughout] Pulse Rate [ From Monitor] Respiratory Rate Respiratory 26 H Rate [Anterior Bilateral Throughout] Blood Pressure 154/88 O2 Sat by Pulse Oximetry Constitutional: comatose, other (critically ill on ventilator) Eyes: non-icteric ENT: oropharynx moist, other (orally intubated and not sedated) Neck: other (large in cirumference) Effort: normal Ascultation: Bilateral: clear, diminished breath sounds, other (coarse BS bilaterally w/ mild faint wheezes) Percussion: Bilateral: not dull Cardiovascular: regular rate and rhythm, other (no mrg) Gastrointestinal: normoactive bowel sounds, soft, other (post surgical changes with drain on the left side) Extremities: no cyanosis, pink and warm, anasarca Neurologic: other (unresponsive, not following commands, not tracking) Psychiatric: other (unable to assess) CBC and BMP: 10/17/20 04:57 10/20/20 07:59 ABG, PT/INR, D-dimer: ABG ABG pH 7.473 (7.320-7.450) H 10/13/20 07:18 POC ABG pCO2 20.7 mmHg (32.0-48.0) L 10/13/20 07:18 ABG pCO2 25.0 mm Hg 10/10/20 04:42 POC ABG pO2 137.9 mmHg (83-108) H 10/13/20 07:18 ABG pO2 95.2 mm Hg (80.0-90.0) H 10/10/20 04:42 POC ABG HCO3 14.8 10/13/20 07:18 ABG O2 Saturation 97.9 % (95.0-99.0) 10/10/20 04:42 PT/INR, D-dimer PT 13.0 Sec. (12.2-14.9) 10/05/20 05:00 INR 1.00 (0.87-1.13) 10/05/20 05:00 D-Dimer > 43296 ng/mlDDU (0-234) H 10/04/20 10:00 Abnormal lab findings: Abnormal Labs 10/02/20 10/02/20 10/02/20 12:03 12:18 12:18 WBC 14.9 H RBC Hgb 9.1 L Hct MCV MCH 22 L MCHC 28 L RDW 17.6 H Plt Count 102 L Lymph % (Auto) [place] % (Auto) Lymph # (Auto) [place] # (Auto) Seg Neutrophils % Seg Neuts % (Manual) 36.0 L Lymphocytes % (Manual) 49.0 H Monocytes % (Manual) Nucleated RBC % 6.0 H Seg Neutrophils # Seg Neutrophils # Man Lymphocytes # (Manual) 7.3 H Monocytes # (Manual) PT INR APTT Fibrinogen D-Dimer ABG pH POC ABG pCO2 POC ABG pO2 ABG pO2 ABG HCO3 ABG Base Excess ABG Hemoglobin ABG Oxyhemoglobin ABG Sodium ABG Potassium ABG Chloride ABG Glucose VBG pH Oxyhemoglobin Carboxyhemoglobin Sodium 134 L Potassium Chloride Carbon Dioxide 12 L BUN 6 L Creatinine Glucose 390 H POC Glucose 451 H Lactic Acid Calcium Ionized Calcium Magnesium AST 135 H ALT 85 H Alkaline Phosphatase 172 H Lactate Dehydrogenase 641 H NT-Pro-B Natriuret Pep Total Protein 5.4 L Albumin 2.3 L Arterial Blood Glucose Arterial Blood Ionized Calcium Urine WBC (Auto) Phenytoin Crossmatch 10/02/20 10/02/20 10/02/20 12:50 13:05 13:05 WBC 38.6 H RBC Hgb 8.9 L Hct 29.0 L MCV 73 L MCH 22 L MCHC RDW 17.2 H Plt Count Lymph % (Auto) [place] % (Auto) Lymph # (Auto) [place] # (Auto) Seg Neutrophils % Seg Neuts % (Manual) Lymphocytes % (Manual) Monocytes % (Manual) Nucleated RBC % 2.0 H Seg Neutrophils # Seg Neutrophils # Man 20.1 H Lymphocytes # (Manual) 10.4 H Monocytes # (Manual) 2.3 H PT INR APTT Fibrinogen D-Dimer ABG pH POC ABG pCO2 POC ABG pO2 ABG pO2 ABG HCO3 ABG Base Excess ABG Hemoglobin ABG Oxyhemoglobin ABG Sodium ABG Potassium ABG Chloride ABG Glucose VBG pH Oxyhemoglobin Carboxyhemoglobin Sodium Potassium Chloride Carbon Dioxide BUN Creatinine Glucose POC Glucose Lactic Acid Calcium Ionized Calcium Magnesium AST 184 H ALT 113 H Alkaline Phosphatase Lactate Dehydrogenase 769 H NT-Pro-B Natriuret Pep Total Protein Albumin Arterial Blood Glucose Arterial Blood Ionized Calcium Urine WBC (Auto) Phenytoin Crossmatch See Detail 10/02/20 10/02/20 10/02/20 16:25 16:35 16:35 WBC RBC Hgb Hct MCV MCH MCHC RDW Plt Count Lymph % (Auto) [place] % (Auto) Lymph # (Auto) [place] # (Auto) Seg Neutrophils % Seg Neuts % (Manual) Lymphocytes % (Manual) Monocytes % (Manual) Nucleated RBC % Seg Neutrophils # Seg Neutrophils # Man Lymphocytes # (Manual) Monocytes # (Manual) PT INR APTT Fibrinogen D-Dimer ABG pH 7.031 L* POC ABG pCO2 POC ABG pO2 ABG pO2 116.8 H ABG HCO3 12.7 L ABG Base Excess -16.9 L ABG Hemoglobin 7.8 L ABG Oxyhemoglobin ABG Sodium ABG Potassium ABG Chloride ABG Glucose VBG pH Oxyhemoglobin 94.9 L Carboxyhemoglobin Sodium Potassium Chloride Carbon Dioxide BUN Creatinine Glucose 403 H POC Glucose Lactic Acid 11.40 H* Calcium 6.3 L D Ionized Calcium Magnesium AST 70 H ALT Alkaline Phosphatase Lactate Dehydrogenase NT-Pro-B Natriuret Pep Total Protein 1.9 L D Albumin 1.2 L Arterial Blood Glucose Arterial Blood Ionized Calcium Urine WBC (Auto) Phenytoin Crossmatch 10/02/20 10/02/20 10/02/20 18:18 18:18 22:30 WBC 11.5 H RBC 2.06 L Hgb 5.5 L* D Hct 17.3 L* D MCV MCH 27 L MCHC RDW 19.5 H Plt Count 60 L Lymph % (Auto) [place] % (Auto) Lymph # (Auto) [place] # (Auto) Seg Neutrophils % Seg Neuts % (Manual) Lymphocytes % (Manual) 8.0 L Monocytes % (Manual) 8.0 H Nucleated RBC % 8.0 H Seg Neutrophils # Seg Neutrophils # Man Lymphocytes # (Manual) 0.9 L Monocytes # (Manual) 0.9 H PT 37.1 H INR 3.71 H APTT 135.8 H* Fibrinogen D-Dimer ABG pH 7.067 L* POC ABG pCO2 POC ABG pO2 ABG pO2 183.0 H ABG HCO3 14.1 L ABG Base Excess -15.1 L ABG Hemoglobin 7.7 L ABG Oxyhemoglobin ABG Sodium ABG Potassium ABG Chloride ABG Glucose VBG pH Oxyhemoglobin Carboxyhemoglobin Sodium Potassium Chloride Carbon Dioxide BUN Creatinine Glucose POC Glucose Lactic Acid Calcium Ionized Calcium Magnesium AST ALT Alkaline Phosphatase Lactate Dehydrogenase NT-Pro-B Natriuret Pep Total Protein Albumin Arterial Blood Glucose Arterial Blood Ionized Calcium Urine WBC (Auto) Phenytoin Crossmatch 10/02/20 10/02/20 10/03/20 Unknown Unknown 00:01 WBC RBC Hgb Hct MCV MCH MCHC RDW Plt Count Lymph % (Auto) [place] % (Auto) Lymph # (Auto) [place] # (Auto) Seg Neutrophils % Seg Neuts % (Manual) Lymphocytes % (Manual) Monocytes % (Manual) Nucleated RBC % Seg Neutrophils # Seg Neutrophils # Man Lymphocytes # (Manual) Monocytes # (Manual) PT 61.1 H INR 6.92 H* APTT 158.7 H* Fibrinogen < 60 L* D-Dimer > 02680 H ABG pH POC ABG pCO2 POC ABG pO2 ABG pO2 ABG HCO3 ABG Base Excess ABG Hemoglobin ABG Oxyhemoglobin ABG Sodium ABG Potassium ABG Chloride ABG Glucose VBG pH 6.949 L* Oxyhemoglobin Carboxyhemoglobin Sodium Potassium Chloride Carbon Dioxide BUN Creatinine Glucose POC Glucose 196 H Lactic Acid Calcium Ionized Calcium Magnesium AST ALT Alkaline Phosphatase Lactate Dehydrogenase NT-Pro-B Natriuret Pep Total Protein Albumin Arterial Blood Glucose Arterial Blood Ionized Calcium Urine WBC (Auto) Phenytoin Crossmatch 10/03/20 10/03/20 10/03/20 00:40 00:40 00:40 WBC RBC Hgb Hct MCV MCH MCHC RDW Plt Count Lymph % (Auto) [place] % (Auto) Lymph # (Auto) [place] # (Auto) Seg Neutrophils % Seg Neuts % (Manual) Lymphocytes % (Manual) Monocytes % (Manual) Nucleated RBC % Seg Neutrophils # Seg Neutrophils # Man Lymphocytes # (Manual) Monocytes # (Manual) PT 15.1 H INR 1.21 H APTT Fibrinogen D-Dimer ABG pH POC ABG pCO2 POC ABG pO2 ABG pO2 ABG HCO3 ABG Base Excess ABG Hemoglobin ABG Oxyhemoglobin ABG Sodium ABG Potassium ABG Chloride ABG Glucose VBG pH Oxyhemoglobin Carboxyhemoglobin Sodium 136 L Potassium Chloride Carbon Dioxide BUN Creatinine 1.6 H D Glucose 106 H POC Glucose Lactic Acid 5.60 H* Calcium 6.5 L Ionized Calcium Magnesium AST 232 H ALT 104 H Alkaline Phosphatase Lactate Dehydrogenase NT-Pro-B Natriuret Pep Total Protein 3.9 L D Albumin 2.4 L Arterial Blood Glucose Arterial Blood Ionized Calcium Urine WBC (Auto) Phenytoin Crossmatch 10/03/20 10/03/20 10/03/20 02:08 02:08 02:08 WBC 17.6 H RBC 3.27 L Hgb 9.9 L D Hct 29.9 L D MCV MCH MCHC RDW 16.5 H Plt Count 75 L Lymph % (Auto) [place] % (Auto) Lymph # (Auto) [place] # (Auto) Seg Neutrophils % Seg Neuts % (Manual) 76.0 H Lymphocytes % (Manual) Monocytes % (Manual) Nucleated RBC % 8.0 H Seg Neutrophils # Seg Neutrophils # Man 13.4 H Lymphocytes # (Manual) Monocytes # (Manual) PT INR APTT Fibrinogen D-Dimer ABG pH POC ABG pCO2 POC ABG pO2 ABG pO2 ABG HCO3 ABG Base Excess ABG Hemoglobin ABG Oxyhemoglobin ABG Sodium ABG Potassium ABG Chloride ABG Glucose VBG pH Oxyhemoglobin Carboxyhemoglobin Sodium Potassium Chloride Carbon Dioxide 19 L BUN Creatinine 1.4 H Glucose 306 H POC Glucose Lactic Acid 10.50 H* Calcium 6.4 L Ionized Calcium Magnesium AST ALT Alkaline Phosphatase Lactate Dehydrogenase NT-Pro-B Natriuret Pep Total Protein Albumin Arterial Blood Glucose Arterial Blood Ionized Calcium Urine WBC (Auto) Phenytoin Crossmatch 10/03/20 10/03/20 10/03/20 02:42 03:59 05:31 WBC RBC Hgb Hct MCV MCH MCHC RDW Plt Count Lymph % (Auto) [place] % (Auto) Lymph # (Auto) [place] # (Auto) Seg Neutrophils % Seg Neuts % (Manual) Lymphocytes % (Manual) Monocytes % (Manual) Nucleated RBC % Seg Neutrophils # Seg Neutrophils # Man Lymphocytes # (Manual) Monocytes # (Manual) PT INR APTT Fibrinogen D-Dimer ABG pH 7.144 L POC ABG pCO2 54.4 H POC ABG pO2 ABG pO2 ABG HCO3 ABG Base Excess ABG Hemoglobin 10.0 L ABG Oxyhemoglobin ABG Sodium ABG Potassium ABG Chloride 108.0 H ABG Glucose 306 H VBG pH Oxyhemoglobin Carboxyhemoglobin Sodium Potassium Chloride Carbon Dioxide BUN Creatinine Glucose POC Glucose 209 H Lactic Acid 9.20 H* Calcium Ionized Calcium Magnesium AST ALT Alkaline Phosphatase Lactate Dehydrogenase NT-Pro-B Natriuret Pep Total Protein Albumin Arterial Blood Glucose 306 H Arterial Blood Ionized Calcium 3.7 L Urine WBC (Auto) Phenytoin Crossmatch 10/03/20 10/03/20 10/03/20 09:00 09:00 09:00 WBC 27.4 H RBC 2.84 L Hgb 8.5 L Hct 25.1 L MCV MCH MCHC RDW 16.1 H Plt Count 72 L Lymph % (Auto) [place] % (Auto) Lymph # (Auto) [place] # (Auto) Seg Neutrophils % Seg Neuts % (Manual) Lymphocytes % (Manual) 11.0 L Monocytes % (Manual) Nucleated RBC % 3.0 H Seg Neutrophils # Seg Neutrophils # Man 18.4 H Lymphocytes # (Manual) Monocytes # (Manual) 1.9 H PT INR APTT Fibrinogen D-Dimer ABG pH POC ABG pCO2 POC ABG pO2 ABG pO2 ABG HCO3 ABG Base Excess ABG Hemoglobin ABG Oxyhemoglobin ABG Sodium ABG Potassium ABG Chloride ABG Glucose VBG pH Oxyhemoglobin Carboxyhemoglobin Sodium Potassium Chloride Carbon Dioxide BUN Creatinine 1.7 H Glucose 216 H POC Glucose Lactic Acid 9.20 H* Calcium 6.3 L Ionized Calcium Magnesium AST 331 H ALT 171 H Alkaline Phosphatase Lactate Dehydrogenase NT-Pro-B Natriuret Pep Total Protein 3.7 L Albumin 1.9 L Arterial Blood Glucose Arterial Blood Ionized Calcium Urine WBC (Auto) Phenytoin Crossmatch 10/03/20 10/03/20 10/03/20 11:20 11:46 11:50 WBC 28.7 H RBC 2.67 L Hgb 8.0 L Hct 23.7 L MCV MCH MCHC RDW 16.6 H Plt Count 76 L Lymph % (Auto) [place] % (Auto) Lymph # (Auto) [place] # (Auto) Seg Neutrophils % Seg Neuts % (Manual) Lymphocytes % (Manual) Monocytes % (Manual) Nucleated RBC % Seg Neutrophils # Seg Neutrophils # Man Lymphocytes # (Manual) Monocytes # (Manual) PT INR APTT Fibrinogen D-Dimer ABG pH POC ABG pCO2 POC ABG pO2 ABG pO2 ABG HCO3 ABG Base Excess ABG Hemoglobin ABG Oxyhemoglobin ABG Sodium ABG Potassium ABG Chloride ABG Glucose VBG pH Oxyhemoglobin Carboxyhemoglobin Sodium Potassium Chloride Carbon Dioxide BUN Creatinine Glucose POC Glucose 125 H Lactic Acid 8.00 H* Calcium Ionized Calcium Magnesium AST ALT Alkaline Phosphatase Lactate Dehydrogenase NT-Pro-B Natriuret Pep Total Protein Albumin Arterial Blood Glucose Arterial Blood Ionized Calcium Urine WBC (Auto) Phenytoin Crossmatch 10/03/20 10/04/20 10/04/20 11:50 00:40 00:40 WBC RBC Hgb 6.8 L Hct 19.4 L* MCV MCH MCHC RDW Plt Count 49 L Lymph % (Auto) [place] % (Auto) Lymph # (Auto) [place] # (Auto) Seg Neutrophils % Seg Neuts % (Manual) Lymphocytes % (Manual) Monocytes % (Manual) Nucleated RBC % Seg Neutrophils # Seg Neutrophils # Man Lymphocytes # (Manual) Monocytes # (Manual) PT INR APTT Fibrinogen D-Dimer ABG pH 7.244 L POC ABG pCO2 POC ABG pO2 ABG pO2 ABG HCO3 ABG Base Excess -4.5 L ABG Hemoglobin 7.3 L ABG Oxyhemoglobin ABG Sodium ABG Potassium ABG Chloride ABG Glucose VBG pH Oxyhemoglobin Carboxyhemoglobin Sodium Potassium Chloride Carbon Dioxide BUN Creatinine Glucose POC Glucose Lactic Acid Calcium Ionized Calcium Magnesium AST ALT Alkaline Phosphatase Lactate Dehydrogenase NT-Pro-B Natriuret Pep Total Protein Albumin Arterial Blood Glucose Arterial Blood Ionized Calcium Urine WBC (Auto) Phenytoin Crossmatch 10/04/20 10/04/20 10/04/20 03:53 10:00 10:00 WBC 14.6 H RBC 2.57 L Hgb 7.6 L Hct 22.5 L MCV MCH MCHC RDW 15.8 H Plt Count 38 L Lymph % (Auto) 7.7 L [place] % (Auto) Lymph # (Auto) 1.1 L [place] # (Auto) 0.9 H Seg Neutrophils % 85.6 H Seg Neuts % (Manual) Lymphocytes % (Manual) Monocytes % (Manual) Nucleated RBC % Seg Neutrophils # 12.5 H Seg Neutrophils # Man Lymphocytes # (Manual) Monocytes # (Manual) PT INR APTT Fibrinogen D-Dimer ABG pH POC ABG pCO2 POC ABG pO2 110.6 H ABG pO2 ABG HCO3 ABG Base Excess ABG Hemoglobin 6.7 L ABG Oxyhemoglobin ABG Sodium 132.0 L ABG Potassium ABG Chloride ABG Glucose 111 H VBG pH Oxyhemoglobin Carboxyhemoglobin Sodium 134 L D Potassium Chloride 97.6 L Carbon Dioxide BUN Creatinine 1.7 H Glucose POC Glucose Lactic Acid Calcium 6.3 L Ionized Calcium Magnesium AST 203 H ALT 81 H Alkaline Phosphatase Lactate Dehydrogenase NT-Pro-B Natriuret Pep Total Protein 3.9 L Albumin 2.3 L Arterial Blood Glucose 111 H Arterial Blood Ionized Calcium 3.5 L Urine WBC (Auto) Phenytoin Crossmatch 10/04/20 10/04/20 10/04/20 10:00 10:00 10:14 WBC RBC Hgb Hct MCV MCH MCHC RDW Plt Count Lymph % (Auto) [place] % (Auto) Lymph # (Auto) [place] # (Auto) Seg Neutrophils % Seg Neuts % (Manual) Lymphocytes % (Manual) Monocytes % (Manual) Nucleated RBC % Seg Neutrophils # Seg Neutrophils # Man Lymphocytes # (Manual) Monocytes # (Manual) PT INR APTT Fibrinogen D-Dimer > 71881 H ABG pH POC ABG pCO2 POC ABG pO2 ABG pO2 ABG HCO3 ABG Base Excess ABG Hemoglobin ABG Oxyhemoglobin ABG Sodium ABG Potassium ABG Chloride ABG Glucose VBG pH Oxyhemoglobin Carboxyhemoglobin Sodium Potassium Chloride Carbon Dioxide BUN Creatinine Glucose POC Glucose Lactic Acid 3.90 H* Calcium Ionized Calcium Magnesium AST ALT Alkaline Phosphatase Lactate Dehydrogenase NT-Pro-B Natriuret Pep 2788 H Total Protein Albumin Arterial Blood Glucose Arterial Blood Ionized Calcium Urine WBC (Auto) Phenytoin Crossmatch 10/04/20 10/04/20 10/04/20 14:00 14:00 18:00 WBC 15.7 H RBC 3.17 L Hgb 9.3 L 9.6 L Hct 27.2 L 28.0 L MCV MCH MCHC RDW 16.9 H Plt Count 41 L Lymph % (Auto) 8.6 L [place] % (Auto) Lymph # (Auto) [place] # (Auto) 0.9 H Seg Neutrophils % 85.4 H Seg Neuts % (Manual) Lymphocytes % (Manual) Monocytes % (Manual) Nucleated RBC % Seg Neutrophils # 13.4 H Seg Neutrophils # Man Lymphocytes # (Manual) Monocytes # (Manual) PT INR APTT Fibrinogen D-Dimer ABG pH POC ABG pCO2 POC ABG pO2 ABG pO2 ABG HCO3 ABG Base Excess ABG Hemoglobin ABG Oxyhemoglobin ABG Sodium ABG Potassium ABG Chloride ABG Glucose VBG pH Oxyhemoglobin Carboxyhemoglobin Sodium 133 L Potassium Chloride 96.4 L Carbon Dioxide BUN 18 H Creatinine 1.7 H Glucose POC Glucose Lactic Acid Calcium 6.3 L Ionized Calcium Magnesium AST ALT Alkaline Phosphatase Lactate Dehydrogenase NT-Pro-B Natriuret Pep Total Protein Albumin Arterial Blood Glucose Arterial Blood Ionized Calcium Urine WBC (Auto) Phenytoin Crossmatch 10/04/20 10/04/20 10/05/20 18:00 22:00 05:00 WBC 17.6 H RBC 3.34 L Hgb 9.9 L Hct 29.4 L MCV MCH MCHC RDW 17.1 H Plt Count 56 L Lymph % (Auto) 8.5 L [place] % (Auto) Lymph # (Auto) [place] # (Auto) 1.0 H Seg Neutrophils % 85.1 H Seg Neuts % (Manual) Lymphocytes % (Manual) Monocytes % (Manual) Nucleated RBC % Seg Neutrophils # 15.0 H Seg Neutrophils # Man Lymphocytes # (Manual) Monocytes # (Manual) PT INR APTT Fibrinogen D-Dimer ABG pH POC ABG pCO2 POC ABG pO2 ABG pO2 ABG HCO3 ABG Base Excess ABG Hemoglobin ABG Oxyhemoglobin ABG Sodium ABG Potassium ABG Chloride ABG Glucose VBG pH Oxyhemoglobin Carboxyhemoglobin Sodium 136 L Potassium Chloride Carbon Dioxide BUN 18 H Creatinine 1.7 H Glucose POC Glucose Lactic Acid 2.30 H* Calcium 6.6 L Ionized Calcium Magnesium AST ALT Alkaline Phosphatase Lactate Dehydrogenase NT-Pro-B Natriuret Pep Total Protein Albumin Arterial Blood Glucose Arterial Blood Ionized Calcium Urine WBC (Auto) Phenytoin Crossmatch 10/05/20 10/05/20 10/05/20 05:00 05:00 05:03 WBC RBC Hgb Hct MCV MCH MCHC RDW Plt Count Lymph % (Auto) [place] % (Auto) Lymph # (Auto) [place] # (Auto) Seg Neutrophils % Seg Neuts % (Manual) Lymphocytes % (Manual) Monocytes % (Manual) Nucleated RBC % Seg Neutrophils # Seg Neutrophils # Man Lymphocytes # (Manual) Monocytes # (Manual) PT INR APTT Fibrinogen D-Dimer ABG pH 7.458 H POC ABG pCO2 POC ABG pO2 ABG pO2 74.3 L ABG HCO3 27.5 H ABG Base Excess 3.4 H ABG Hemoglobin 10.0 L ABG Oxyhemoglobin ABG Sodium ABG Potassium ABG Chloride ABG Glucose VBG pH Oxyhemoglobin 94.9 L Carboxyhemoglobin Sodium Potassium Chloride Carbon Dioxide BUN 19 H Creatinine 1.8 H Glucose POC Glucose Lactic Acid Calcium 6.8 L Ionized Calcium 3.9 L Magnesium AST 225 H ALT 85 H Alkaline Phosphatase Lactate Dehydrogenase NT-Pro-B Natriuret Pep Total Protein 4.5 L Albumin 2.7 L Arterial Blood Glucose Arterial Blood Ionized Calcium Urine WBC (Auto) Phenytoin Crossmatch 10/05/20 10/05/20 10/05/20 10:10 15:00 19:40 WBC RBC Hgb Hct MCV MCH MCHC RDW Plt Count Lymph % (Auto) [place] % (Auto) Lymph # (Auto) [place] # (Auto) Seg Neutrophils % Seg Neuts % (Manual) Lymphocytes % (Manual) Monocytes % (Manual) Nucleated RBC % Seg Neutrophils # Seg Neutrophils # Man Lymphocytes # (Manual) Monocytes # (Manual) PT INR APTT Fibrinogen D-Dimer ABG pH POC ABG pCO2 POC ABG pO2 ABG pO2 ABG HCO3 ABG Base Excess ABG Hemoglobin ABG Oxyhemoglobin ABG Sodium ABG Potassium ABG Chloride ABG Glucose VBG pH Oxyhemoglobin Carboxyhemoglobin Sodium Potassium 3.5 L Chloride Carbon Dioxide 31 H 32 H BUN 19 H 19 H Creatinine 1.8 H 1.8 H Glucose POC Glucose Lactic Acid Calcium 7.0 L 7.2 L Ionized Calcium Magnesium 2.90 H AST ALT Alkaline Phosphatase Lactate Dehydrogenase NT-Pro-B Natriuret Pep Total Protein Albumin Arterial Blood Glucose Arterial Blood Ionized Calcium Urine WBC (Auto) Phenytoin Crossmatch 10/06/20 10/06/20 10/06/20 01:05 03:12 04:00 WBC 17.1 H RBC 3.47 L Hgb Hct MCV MCH MCHC RDW 17.4 H Plt Count 82 L Lymph % (Auto) 8.3 L [place] % (Auto) Lymph # (Auto) [place] # (Auto) 1.1 H Seg Neutrophils % 83.8 H Seg Neuts % (Manual) Lymphocytes % (Manual) Monocytes % (Manual) Nucleated RBC % Seg Neutrophils # 14.3 H Seg Neutrophils # Man Lymphocytes # (Manual) Monocytes # (Manual) PT INR APTT Fibrinogen D-Dimer ABG pH 7.474 H POC ABG pCO2 POC ABG pO2 129.5 H ABG pO2 ABG HCO3 ABG Base Excess ABG Hemoglobin 11.4 L ABG Oxyhemoglobin ABG Sodium 131.8 L ABG Potassium ABG Chloride ABG Glucose 103 H VBG pH Oxyhemoglobin Carboxyhemoglobin 0.3 L Sodium Potassium Chloride Carbon Dioxide BUN Creatinine Glucose POC Glucose Lactic Acid Calcium Ionized Calcium Magnesium 3.70 H AST ALT Alkaline Phosphatase Lactate Dehydrogenase NT-Pro-B Natriuret Pep Total Protein Albumin Arterial Blood Glucose 103 H Arterial Blood Ionized Calcium 4.2 L Urine WBC (Auto) Phenytoin Crossmatch 10/06/20 10/06/20 10/06/20 04:00 05:31 08:12 WBC RBC Hgb Hct MCV MCH MCHC RDW Plt Count Lymph % (Auto) [place] % (Auto) Lymph # (Auto) [place] # (Auto) Seg Neutrophils % Seg Neuts % (Manual) Lymphocytes % (Manual) Monocytes % (Manual) Nucleated RBC % Seg Neutrophils # Seg Neutrophils # Man Lymphocytes # (Manual) Monocytes # (Manual) PT INR APTT Fibrinogen D-Dimer ABG pH POC ABG pCO2 POC ABG pO2 ABG pO2 ABG HCO3 ABG Base Excess ABG Hemoglobin ABG Oxyhemoglobin ABG Sodium ABG Potassium ABG Chloride ABG Glucose VBG pH Oxyhemoglobin Carboxyhemoglobin Sodium Potassium 3.5 L Chloride Carbon Dioxide BUN 19 H Creatinine 1.8 H Glucose 102 H POC Glucose 116 H Lactic Acid Calcium 7.2 L Ionized Calcium Magnesium 5.40 H AST 307 H ALT 137 H Alkaline Phosphatase Lactate Dehydrogenase NT-Pro-B Natriuret Pep Total Protein 4.5 L Albumin 2.6 L Arterial Blood Glucose Arterial Blood Ionized Calcium Urine WBC (Auto) Phenytoin Crossmatch 10/06/20 10/06/20 10/06/20 11:00 11:50 20:13 WBC RBC Hgb Hct MCV MCH MCHC RDW Plt Count Lymph % (Auto) [place] % (Auto) Lymph # (Auto) [place] # (Auto) Seg Neutrophils % Seg Neuts % (Manual) Lymphocytes % (Manual) Monocytes % (Manual) Nucleated RBC % Seg Neutrophils # Seg Neutrophils # Man Lymphocytes # (Manual) Monocytes # (Manual) PT INR APTT Fibrinogen D-Dimer ABG pH POC ABG pCO2 POC ABG pO2 ABG pO2 ABG HCO3 ABG Base Excess ABG Hemoglobin ABG Oxyhemoglobin ABG Sodium ABG Potassium ABG Chloride ABG Glucose VBG pH Oxyhemoglobin Carboxyhemoglobin Sodium Potassium Chloride Carbon Dioxide BUN Creatinine Glucose POC Glucose 106 H Lactic Acid Calcium Ionized Calcium Magnesium 6.50 H 6.20 H AST ALT Alkaline Phosphatase Lactate Dehydrogenase NT-Pro-B Natriuret Pep Total Protein Albumin Arterial Blood Glucose Arterial Blood Ionized Calcium Urine WBC (Auto) Phenytoin Crossmatch 10/06/20 10/06/20 10/06/20 20:17 22:29 23:57 WBC RBC Hgb Hct MCV MCH MCHC RDW Plt Count Lymph % (Auto) [place] % (Auto) Lymph # (Auto) [place] # (Auto) Seg Neutrophils % Seg Neuts % (Manual) Lymphocytes % (Manual) Monocytes % (Manual) Nucleated RBC % Seg Neutrophils # Seg Neutrophils # Man Lymphocytes # (Manual) Monocytes # (Manual) PT INR APTT Fibrinogen D-Dimer ABG pH POC ABG pCO2 POC ABG pO2 ABG pO2 ABG HCO3 ABG Base Excess ABG Hemoglobin ABG Oxyhemoglobin ABG Sodium ABG Potassium ABG Chloride ABG Glucose VBG pH Oxyhemoglobin Carboxyhemoglobin Sodium Potassium Chloride Carbon Dioxide BUN Creatinine Glucose POC Glucose 112 H 126 H 133 H Lactic Acid Calcium Ionized Calcium Magnesium AST ALT Alkaline Phosphatase Lactate Dehydrogenase NT-Pro-B Natriuret Pep Total Protein Albumin Arterial Blood Glucose Arterial Blood Ionized Calcium Urine WBC (Auto) Phenytoin Crossmatch 10/07/20 10/07/20 10/07/20 00:35 02:22 03:16 WBC RBC Hgb Hct MCV MCH MCHC RDW Plt Count Lymph % (Auto) [place] % (Auto) Lymph # (Auto) [place] # (Auto) Seg Neutrophils % Seg Neuts % (Manual) Lymphocytes % (Manual) Monocytes % (Manual) Nucleated RBC % Seg Neutrophils # Seg Neutrophils # Man Lymphocytes # (Manual) Monocytes # (Manual) PT INR APTT Fibrinogen D-Dimer ABG pH POC ABG pCO2 POC ABG pO2 ABG pO2 ABG HCO3 ABG Base Excess ABG Hemoglobin 11.6 L ABG Oxyhemoglobin ABG Sodium ABG Potassium ABG Chloride ABG Glucose 156 H VBG pH Oxyhemoglobin Carboxyhemoglobin 0.3 L Sodium Potassium Chloride Carbon Dioxide BUN Creatinine Glucose POC Glucose 124 H Lactic Acid Calcium Ionized Calcium Magnesium 5.90 H AST ALT Alkaline Phosphatase Lactate Dehydrogenase NT-Pro-B Natriuret Pep Total Protein Albumin Arterial Blood Glucose 156 H Arterial Blood Ionized Calcium 4.2 L Urine WBC (Auto) Phenytoin Crossmatch 10/07/20 10/07/20 10/07/20 04:06 05:45 07:05 WBC 19.2 H RBC 3.57 L Hgb Hct MCV MCH MCHC 35 H RDW 17.1 H Plt Count 129 L Lymph % (Auto) [place] % (Auto) Lymph # (Auto) [place] # (Auto) Seg Neutrophils % Seg Neuts % (Manual) 94.0 H Lymphocytes % (Manual) 6.0 L Monocytes % (Manual) Nucleated RBC % Seg Neutrophils # Seg Neutrophils # Man 18.0 H Lymphocytes # (Manual) Monocytes # (Manual) PT INR APTT Fibrinogen D-Dimer ABG pH POC ABG pCO2 POC ABG pO2 ABG pO2 ABG HCO3 ABG Base Excess ABG Hemoglobin ABG Oxyhemoglobin ABG Sodium ABG Potassium ABG Chloride ABG Glucose VBG pH Oxyhemoglobin Carboxyhemoglobin Sodium Potassium Chloride Carbon Dioxide BUN Creatinine Glucose POC Glucose 135 H 149 H Lactic Acid Calcium Ionized Calcium Magnesium AST ALT Alkaline Phosphatase Lactate Dehydrogenase NT-Pro-B Natriuret Pep Total Protein Albumin Arterial Blood Glucose Arterial Blood Ionized Calcium Urine WBC (Auto) Phenytoin Crossmatch 10/07/20 10/07/20 10/07/20 07:05 07:05 12:21 WBC RBC Hgb Hct MCV MCH MCHC RDW Plt Count Lymph % (Auto) [place] % (Auto) Lymph # (Auto) [place] # (Auto) Seg Neutrophils % Seg Neuts % (Manual) Lymphocytes % (Manual) Monocytes % (Manual) Nucleated RBC % Seg Neutrophils # Seg Neutrophils # Man Lymphocytes # (Manual) Monocytes # (Manual) PT INR APTT Fibrinogen D-Dimer ABG pH POC ABG pCO2 POC ABG pO2 ABG pO2 ABG HCO3 ABG Base Excess ABG Hemoglobin ABG Oxyhemoglobin ABG Sodium ABG Potassium ABG Chloride ABG Glucose VBG pH Oxyhemoglobin Carboxyhemoglobin Sodium Potassium Chloride Carbon Dioxide BUN 21 H Creatinine 1.7 H Glucose 171 H POC Glucose 124 H Lactic Acid Calcium 7.4 L Ionized Calcium Magnesium 6.10 H AST 245 H ALT 147 H Alkaline Phosphatase Lactate Dehydrogenase NT-Pro-B Natriuret Pep Total Protein 5.3 L Albumin 2.8 L Arterial Blood Glucose Arterial Blood Ionized Calcium Urine WBC (Auto) Phenytoin Crossmatch 10/07/20 10/07/20 10/07/20 19:52 21:00 21:50 WBC RBC Hgb Hct MCV MCH MCHC RDW Plt Count Lymph % (Auto) [place] % (Auto) Lymph # (Auto) [place] # (Auto) Seg Neutrophils % Seg Neuts % (Manual) Lymphocytes % (Manual) Monocytes % (Manual) Nucleated RBC % Seg Neutrophils # Seg Neutrophils # Man Lymphocytes # (Manual) Monocytes # (Manual) PT INR APTT Fibrinogen D-Dimer ABG pH POC ABG pCO2 POC ABG pO2 ABG pO2 ABG HCO3 ABG Base Excess ABG Hemoglobin ABG Oxyhemoglobin ABG Sodium ABG Potassium ABG Chloride ABG Glucose VBG pH Oxyhemoglobin Carboxyhemoglobin Sodium Potassium Chloride Carbon Dioxide BUN Creatinine Glucose POC Glucose 193 H 138 H Lactic Acid Calcium Ionized Calcium 4.4 L Magnesium AST ALT Alkaline Phosphatase Lactate Dehydrogenase NT-Pro-B Natriuret Pep Total Protein Albumin Arterial Blood Glucose Arterial Blood Ionized Calcium Urine WBC (Auto) Phenytoin Crossmatch 10/07/20 10/08/20 10/08/20 23:41 04:20 05:30 WBC RBC Hgb Hct MCV MCH MCHC RDW Plt Count Lymph % (Auto) [place] % (Auto) Lymph # (Auto) [place] # (Auto) Seg Neutrophils % Seg Neuts % (Manual) Lymphocytes % (Manual) Monocytes % (Manual) Nucleated RBC % Seg Neutrophils # Seg Neutrophils # Man Lymphocytes # (Manual) Monocytes # (Manual) PT INR APTT Fibrinogen D-Dimer ABG pH 7.467 H POC ABG pCO2 POC ABG pO2 189.8 H ABG pO2 ABG HCO3 ABG Base Excess ABG Hemoglobin 10.8 L ABG Oxyhemoglobin ABG Sodium ABG Potassium ABG Chloride ABG Glucose 133 H VBG pH Oxyhemoglobin Carboxyhemoglobin Sodium Potassium Chloride Carbon Dioxide BUN Creatinine Glucose POC Glucose 118 H 114 H Lactic Acid Calcium Ionized Calcium Magnesium AST ALT Alkaline Phosphatase Lactate Dehydrogenase NT-Pro-B Natriuret Pep Total Protein Albumin Arterial Blood Glucose 133 H Arterial Blood Ionized Calcium 4.2 L Urine WBC (Auto) Phenytoin Crossmatch 10/08/20 10/08/20 10/08/20 05:43 06:42 06:42 WBC 23.6 H RBC 3.54 L Hgb Hct MCV MCH MCHC RDW 17.8 H Plt Count Lymph % (Auto) [place] % (Auto) Lymph # (Auto) [place] # (Auto) Seg Neutrophils % Seg Neuts % (Manual) 93.0 H Lymphocytes % (Manual) 3.0 L Monocytes % (Manual) Nucleated RBC % 1.0 H Seg Neutrophils # Seg Neutrophils # Man 21.9 H Lymphocytes # (Manual) 0.7 L Monocytes # (Manual) 0.9 H PT INR APTT Fibrinogen D-Dimer ABG pH POC ABG pCO2 POC ABG pO2 ABG pO2 ABG HCO3 ABG Base Excess ABG Hemoglobin ABG Oxyhemoglobin ABG Sodium ABG Potassium ABG Chloride ABG Glucose VBG pH Oxyhemoglobin Carboxyhemoglobin Sodium Potassium Chloride Carbon Dioxide BUN 28 H Creatinine 1.6 H Glucose 141 H POC Glucose 126 H Lactic Acid Calcium 7.6 L Ionized Calcium Magnesium AST 162 H ALT 103 H Alkaline Phosphatase Lactate Dehydrogenase NT-Pro-B Natriuret Pep Total Protein 5.4 L Albumin 2.7 L Arterial Blood Glucose Arterial Blood Ionized Calcium Urine WBC (Auto) Phenytoin Crossmatch 10/08/20 10/08/20 10/08/20 11:20 16:05 20:14 WBC RBC Hgb Hct MCV MCH MCHC RDW Plt Count Lymph % (Auto) [place] % (Auto) Lymph # (Auto) [place] # (Auto) Seg Neutrophils % Seg Neuts % (Manual) Lymphocytes % (Manual) Monocytes % (Manual) Nucleated RBC % Seg Neutrophils # Seg Neutrophils # Man Lymphocytes # (Manual) Monocytes # (Manual) PT INR APTT Fibrinogen D-Dimer ABG pH POC ABG pCO2 POC ABG pO2 ABG pO2 ABG HCO3 ABG Base Excess ABG Hemoglobin ABG Oxyhemoglobin ABG Sodium ABG Potassium ABG Chloride ABG Glucose VBG pH Oxyhemoglobin Carboxyhemoglobin Sodium Potassium Chloride Carbon Dioxide BUN Creatinine Glucose POC Glucose 127 H 172 H 147 H Lactic Acid Calcium Ionized Calcium Magnesium AST ALT Alkaline Phosphatase Lactate Dehydrogenase NT-Pro-B Natriuret Pep Total Protein Albumin Arterial Blood Glucose Arterial Blood Ionized Calcium Urine WBC (Auto) Phenytoin Crossmatch 10/08/20 10/08/20 10/09/20 21:27 23:24 02:10 WBC RBC Hgb Hct MCV MCH MCHC RDW Plt Count Lymph % (Auto) [place] % (Auto) Lymph # (Auto) [place] # (Auto) Seg Neutrophils % Seg Neuts % (Manual) Lymphocytes % (Manual) Monocytes % (Manual) Nucleated RBC % Seg Neutrophils # Seg Neutrophils # Man Lymphocytes # (Manual) Monocytes # (Manual) PT INR APTT Fibrinogen D-Dimer ABG pH POC ABG pCO2 POC ABG pO2 ABG pO2 ABG HCO3 ABG Base Excess ABG Hemoglobin ABG Oxyhemoglobin ABG Sodium ABG Potassium ABG Chloride ABG Glucose VBG pH Oxyhemoglobin Carboxyhemoglobin Sodium Potassium Chloride Carbon Dioxide BUN Creatinine Glucose POC Glucose 140 H 135 H 111 H Lactic Acid Calcium Ionized Calcium Magnesium AST ALT Alkaline Phosphatase Lactate Dehydrogenase NT-Pro-B Natriuret Pep Total Protein Albumin Arterial Blood Glucose Arterial Blood Ionized Calcium Urine WBC (Auto) Phenytoin Crossmatch 10/09/20 10/09/20 10/09/20 03:44 04:39 05:46 WBC 19.7 H RBC 3.51 L Hgb Hct MCV MCH MCHC RDW 17.7 H Plt Count Lymph % (Auto) [place] % (Auto) Lymph # (Auto) [place] # (Auto) Seg Neutrophils % Seg Neuts % (Manual) 86.0 H Lymphocytes % (Manual) 4.0 L Monocytes % (Manual) 9.0 H Nucleated RBC % Seg Neutrophils # Seg Neutrophils # Man 16.9 H Lymphocytes # (Manual) 0.8 L Monocytes # (Manual) 1.8 H PT INR APTT Fibrinogen D-Dimer ABG pH 7.513 H POC ABG pCO2 POC ABG pO2 33.6 L ABG pO2 ABG HCO3 ABG Base Excess ABG Hemoglobin 11.1 L ABG Oxyhemoglobin 70.2 L ABG Sodium ABG Potassium 3.2 L ABG Chloride 108.0 H ABG Glucose 108 H VBG pH Oxyhemoglobin Carboxyhemoglobin Sodium Potassium Chloride Carbon Dioxide BUN Creatinine Glucose POC Glucose 109 H Lactic Acid Calcium Ionized Calcium Magnesium AST ALT Alkaline Phosphatase Lactate Dehydrogenase NT-Pro-B Natriuret Pep Total Protein Albumin Arterial Blood Glucose 108 H Arterial Blood Ionized Calcium 4.3 L Urine WBC (Auto) Phenytoin Crossmatch 10/09/20 10/10/20 10/10/20 05:46 04:00 04:00 WBC 18.4 H RBC Hgb Hct MCV MCH MCHC RDW 17.5 H Plt Count Lymph % (Auto) 9.8 L [place] % (Auto) 8.8 H Lymph # (Auto) [place] # (Auto) 1.6 H Seg Neutrophils % 80.0 H Seg Neuts % (Manual) Lymphocytes % (Manual) Monocytes % (Manual) Nucleated RBC % Seg Neutrophils # 14.7 H Seg Neutrophils # Man Lymphocytes # (Manual) Monocytes # (Manual) PT INR APTT Fibrinogen D-Dimer ABG pH POC ABG pCO2 POC ABG pO2 ABG pO2 ABG HCO3 ABG Base Excess ABG Hemoglobin ABG Oxyhemoglobin ABG Sodium ABG Potassium ABG Chloride ABG Glucose VBG pH Oxyhemoglobin Carboxyhemoglobin Sodium 146 H Potassium 3.2 L 2.9 L* Chloride 108.9 H 112.6 H Carbon Dioxide BUN 34 H 28 H Creatinine 1.4 H 1.3 H Glucose 109 H 101 H POC Glucose Lactic Acid Calcium 7.6 L 7.8 L Ionized Calcium Magnesium AST 137 H 122 H ALT 99 H 81 H Alkaline Phosphatase Lactate Dehydrogenase NT-Pro-B Natriuret Pep Total Protein 5.1 L 5.2 L Albumin 2.6 L 2.7 L Arterial Blood Glucose Arterial Blood Ionized Calcium Urine WBC (Auto) Phenytoin Crossmatch 10/10/20 10/10/20 10/11/20 04:42 09:50 00:44 WBC RBC Hgb Hct MCV MCH MCHC RDW Plt Count Lymph % (Auto) [place] % (Auto) Lymph # (Auto) [place] # (Auto) Seg Neutrophils % Seg Neuts % (Manual) Lymphocytes % (Manual) Monocytes % (Manual) Nucleated RBC % Seg Neutrophils # Seg Neutrophils # Man Lymphocytes # (Manual) Monocytes # (Manual) PT INR APTT Fibrinogen D-Dimer ABG pH 7.534 H POC ABG pCO2 POC ABG pO2 ABG pO2 95.2 H ABG HCO3 ABG Base Excess ABG Hemoglobin 11.3 L ABG Oxyhemoglobin ABG Sodium ABG Potassium ABG Chloride ABG Glucose VBG pH Oxyhemoglobin Carboxyhemoglobin Sodium Potassium Chloride Carbon Dioxide BUN Creatinine Glucose POC Glucose 109 H 106 H Lactic Acid Calcium Ionized Calcium Magnesium AST ALT Alkaline Phosphatase Lactate Dehydrogenase NT-Pro-B Natriuret Pep Total Protein Albumin Arterial Blood Glucose Arterial Blood Ionized Calcium Urine WBC (Auto) Phenytoin Crossmatch 10/11/20 10/11/20 10/11/20 04:00 04:00 06:08 WBC 27.0 H RBC Hgb Hct MCV MCH MCHC RDW 17.7 H Plt Count Lymph % (Auto) 6.3 L [place] % (Auto) Lymph # (Auto) [place] # (Auto) 1.5 H Seg Neutrophils % 87.1 H Seg Neuts % (Manual) Lymphocytes % (Manual) Monocytes % (Manual) Nucleated RBC % Seg Neutrophils # 23.5 H Seg Neutrophils # Man Lymphocytes # (Manual) Monocytes # (Manual) PT INR APTT Fibrinogen D-Dimer ABG pH POC ABG pCO2 POC ABG pO2 ABG pO2 ABG HCO3 ABG Base Excess ABG Hemoglobin ABG Oxyhemoglobin ABG Sodium ABG Potassium ABG Chloride ABG Glucose VBG pH Oxyhemoglobin Carboxyhemoglobin Sodium Potassium 3.2 L Chloride 110.4 H Carbon Dioxide 19 L BUN 22 H Creatinine Glucose 116 H POC Glucose 107 H Lactic Acid Calcium 7.7 L Ionized Calcium Magnesium 1.60 L AST ALT Alkaline Phosphatase Lactate Dehydrogenase NT-Pro-B Natriuret Pep Total Protein Albumin Arterial Blood Glucose Arterial Blood Ionized Calcium Urine WBC (Auto) Phenytoin Crossmatch 10/11/20 10/11/20 10/12/20 11:41 13:26 03:52 WBC RBC Hgb Hct MCV MCH MCHC RDW Plt Count Lymph % (Auto) [place] % (Auto) Lymph # (Auto) [place] # (Auto) Seg Neutrophils % Seg Neuts % (Manual) Lymphocytes % (Manual) Monocytes % (Manual) Nucleated RBC % Seg Neutrophils # Seg Neutrophils # Man Lymphocytes # (Manual) Monocytes # (Manual) PT INR APTT Fibrinogen D-Dimer ABG pH POC ABG pCO2 POC ABG pO2 ABG pO2 ABG HCO3 ABG Base Excess ABG Hemoglobin ABG Oxyhemoglobin ABG Sodium ABG Potassium ABG Chloride ABG Glucose VBG pH Oxyhemoglobin Carboxyhemoglobin Sodium Potassium Chloride Carbon Dioxide BUN Creatinine Glucose POC Glucose 116 H 114 H Lactic Acid Calcium Ionized Calcium Magnesium AST ALT Alkaline Phosphatase Lactate Dehydrogenase NT-Pro-B Natriuret Pep Total Protein Albumin Arterial Blood Glucose Arterial Blood Ionized Calcium Urine WBC (Auto) 24.0 H Phenytoin Crossmatch 10/12/20 10/12/20 10/12/20 04:24 14:47 21:33 WBC RBC Hgb Hct MCV MCH MCHC RDW Plt Count Lymph % (Auto) [place] % (Auto) Lymph # (Auto) [place] # (Auto) Seg Neutrophils % Seg Neuts % (Manual) Lymphocytes % (Manual) Monocytes % (Manual) Nucleated RBC % Seg Neutrophils # Seg Neutrophils # Man Lymphocytes # (Manual) Monocytes # (Manual) PT INR APTT Fibrinogen D-Dimer ABG pH POC ABG pCO2 POC ABG pO2 ABG pO2 ABG HCO3 ABG Base Excess ABG Hemoglobin ABG Oxyhemoglobin ABG Sodium ABG Potassium ABG Chloride ABG Glucose VBG pH Oxyhemoglobin Carboxyhemoglobin Sodium Potassium Chloride 109.9 H Carbon Dioxide 13 L BUN 18 H Creatinine Glucose 119 H POC Glucose 107 H Lactic Acid Calcium 7.6 L Ionized Calcium Magnesium 1.60 L AST ALT Alkaline Phosphatase Lactate Dehydrogenase NT-Pro-B Natriuret Pep Total Protein Albumin Arterial Blood Glucose Arterial Blood Ionized Calcium Urine WBC (Auto) Phenytoin Crossmatch 10/12/20 10/12/20 10/13/20 Unknown Unknown 07:00 WBC 24.3 H RBC 3.38 L Hgb 9.8 L Hct MCV MCH MCHC RDW 18.7 H Plt Count Lymph % (Auto) [place] % (Auto) Lymph # (Auto) [place] # (Auto) Seg Neutrophils % Seg Neuts % (Manual) 93.5 H Lymphocytes % (Manual) 4.5 L Monocytes % (Manual) Nucleated RBC % Seg Neutrophils # Seg Neutrophils # Man 22.7 H Lymphocytes # (Manual) 1.1 L Monocytes # (Manual) PT INR APTT Fibrinogen D-Dimer ABG pH POC ABG pCO2 POC ABG pO2 ABG pO2 ABG HCO3 ABG Base Excess ABG Hemoglobin ABG Oxyhemoglobin ABG Sodium ABG Potassium ABG Chloride ABG Glucose VBG pH Oxyhemoglobin Carboxyhemoglobin Sodium 135 L D Potassium 3.1 L Chloride Carbon Dioxide 17 L BUN Creatinine Glucose 510 H* POC Glucose Lactic Acid Calcium 7.2 L Ionized Calcium Magnesium AST ALT Alkaline Phosphatase Lactate Dehydrogenase NT-Pro-B Natriuret Pep Total Protein Albumin Arterial Blood Glucose Arterial Blood Ionized Calcium Urine WBC (Auto) Phenytoin 5.7 L Crossmatch 10/13/20 10/13/20 10/13/20 07:00 07:00 07:18 WBC 23.6 H RBC 3.26 L Hgb 9.4 L Hct 28.7 L MCV MCH MCHC RDW 18.3 H Plt Count Lymph % (Auto) [place] % (Auto) Lymph # (Auto) [place] # (Auto) Seg Neutrophils % Seg Neuts % (Manual) Lymphocytes % (Manual) Monocytes % (Manual) Nucleated RBC % Seg Neutrophils # Seg Neutrophils # Man Lymphocytes # (Manual) Monocytes # (Manual) PT INR APTT Fibrinogen D-Dimer ABG pH 7.473 H POC ABG pCO2 20.7 L POC ABG pO2 137.9 H ABG pO2 ABG HCO3 ABG Base Excess ABG Hemoglobin 11.2 L ABG Oxyhemoglobin 98.3 H ABG Sodium 135.9 L ABG Potassium ABG Chloride 111.0 H ABG Glucose 109 H VBG pH Oxyhemoglobin Carboxyhemoglobin 0.3 L Sodium 135 L Potassium 3.5 L Chloride 109.1 H Carbon Dioxide 18 L BUN Creatinine Glucose POC Glucose Lactic Acid Calcium 7.3 L Ionized Calcium Magnesium 1.60 L AST ALT Alkaline Phosphatase Lactate Dehydrogenase NT-Pro-B Natriuret Pep Total Protein Albumin Arterial Blood Glucose 109 H Arterial Blood Ionized Calcium Urine WBC (Auto) Phenytoin Crossmatch 10/14/20 10/14/20 10/15/20 04:00 04:00 05:50 WBC 28.6 H 23.2 H RBC 3.61 L 3.43 L Hgb 9.9 L Hct 30.0 L MCV MCH MCHC RDW 18.3 H 18.2 H Plt Count Lymph % (Auto) [place] % (Auto) Lymph # (Auto) [place] # (Auto) Seg Neutrophils % Seg Neuts % (Manual) 88.0 H 90.0 H Lymphocytes % (Manual) 5.0 L 4.0 L Monocytes % (Manual) Nucleated RBC % Seg Neutrophils # Seg Neutrophils # Man 25.2 H 20.9 H Lymphocytes # (Manual) 0.9 L Monocytes # (Manual) 1.4 H 0.9 H PT INR APTT Fibrinogen D-Dimer ABG pH POC ABG pCO2 POC ABG pO2 ABG pO2 ABG HCO3 ABG Base Excess ABG Hemoglobin ABG Oxyhemoglobin ABG Sodium ABG Potassium ABG Chloride ABG Glucose VBG pH Oxyhemoglobin Carboxyhemoglobin Sodium Potassium Chloride 109.9 H Carbon Dioxide 17 L BUN Creatinine Glucose POC Glucose Lactic Acid Calcium Ionized Calcium Magnesium AST ALT Alkaline Phosphatase Lactate Dehydrogenase NT-Pro-B Natriuret Pep Total Protein Albumin Arterial Blood Glucose Arterial Blood Ionized Calcium Urine WBC (Auto) Phenytoin Crossmatch 10/15/20 10/16/20 10/17/20 05:50 11:57 04:57 WBC 15.2 H RBC 3.43 L Hgb Hct MCV MCH MCHC RDW 18.1 H Plt Count Lymph % (Auto) [place] % (Auto) Lymph # (Auto) [place] # (Auto) Seg Neutrophils % Seg Neuts % (Manual) Lymphocytes % (Manual) Monocytes % (Manual) Nucleated RBC % Seg Neutrophils # Seg Neutrophils # Man Lymphocytes # (Manual) Monocytes # (Manual) PT INR APTT Fibrinogen D-Dimer ABG pH POC ABG pCO2 POC ABG pO2 ABG pO2 ABG HCO3 ABG Base Excess ABG Hemoglobin ABG Oxyhemoglobin ABG Sodium ABG Potassium ABG Chloride ABG Glucose VBG pH Oxyhemoglobin Carboxyhemoglobin Sodium Potassium Chloride 110.3 H Carbon Dioxide 18 L BUN Creatinine Glucose 105 H POC Glucose 111 H Lactic Acid Calcium 8.3 L Ionized Calcium Magnesium AST ALT Alkaline Phosphatase Lactate Dehydrogenase NT-Pro-B Natriuret Pep Total Protein Albumin Arterial Blood Glucose Arterial Blood Ionized Calcium Urine WBC (Auto) Phenytoin Crossmatch 10/17/20 10/17/20 10/18/20 05:25 21:16 01:31 WBC RBC Hgb Hct MCV MCH MCHC RDW Plt Count Lymph % (Auto) [place] % (Auto) Lymph # (Auto) [place] # (Auto) Seg Neutrophils % Seg Neuts % (Manual) Lymphocytes % (Manual) Monocytes % (Manual) Nucleated RBC % Seg Neutrophils # Seg Neutrophils # Man Lymphocytes # (Manual) Monocytes # (Manual) PT INR APTT Fibrinogen D-Dimer ABG pH POC ABG pCO2 POC ABG pO2 ABG pO2 ABG HCO3 ABG Base Excess ABG Hemoglobin ABG Oxyhemoglobin ABG Sodium ABG Potassium ABG Chloride ABG Glucose VBG pH Oxyhemoglobin Carboxyhemoglobin Sodium Potassium Chloride Carbon Dioxide BUN Creatinine Glucose POC Glucose 107 H 106 H 119 H Lactic Acid Calcium Ionized Calcium Magnesium AST ALT Alkaline Phosphatase Lactate Dehydrogenase NT-Pro-B Natriuret Pep Total Protein Albumin Arterial Blood Glucose Arterial Blood Ionized Calcium Urine WBC (Auto) Phenytoin Crossmatch 10/18/20 10/18/20 10/19/20 05:45 11:23 01:14 WBC RBC Hgb Hct MCV MCH MCHC RDW Plt Count Lymph % (Auto) [place] % (Auto) Lymph # (Auto) [place] # (Auto) Seg Neutrophils % Seg Neuts % (Manual) Lymphocytes % (Manual) Monocytes % (Manual) Nucleated RBC % Seg Neutrophils # Seg Neutrophils # Man Lymphocytes # (Manual) Monocytes # (Manual) PT INR APTT Fibrinogen D-Dimer ABG pH POC ABG pCO2 POC ABG pO2 ABG pO2 ABG HCO3 ABG Base Excess ABG Hemoglobin ABG Oxyhemoglobin ABG Sodium ABG Potassium ABG Chloride ABG Glucose VBG pH Oxyhemoglobin Carboxyhemoglobin Sodium Potassium Chloride Carbon Dioxide BUN Creatinine Glucose POC Glucose 106 H 115 H 108 H Lactic Acid Calcium Ionized Calcium Magnesium AST ALT Alkaline Phosphatase Lactate Dehydrogenase NT-Pro-B Natriuret Pep Total Protein Albumin Arterial Blood Glucose Arterial Blood Ionized Calcium Urine WBC (Auto) Phenytoin Crossmatch 10/19/20 10/20/20 10/20/20 09:57 05:40 07:59 WBC RBC Hgb Hct MCV MCH MCHC RDW Plt Count Lymph % (Auto) [place] % (Auto) Lymph # (Auto) [place] # (Auto) Seg Neutrophils % Seg Neuts % (Manual) Lymphocytes % (Manual) Monocytes % (Manual) Nucleated RBC % Seg Neutrophils # Seg Neutrophils # Man Lymphocytes # (Manual) Monocytes # (Manual) PT INR APTT Fibrinogen D-Dimer ABG pH POC ABG pCO2 POC ABG pO2 ABG pO2 ABG HCO3 ABG Base Excess ABG Hemoglobin ABG Oxyhemoglobin ABG Sodium ABG Potassium ABG Chloride ABG Glucose VBG pH Oxyhemoglobin Carboxyhemoglobin Sodium Potassium Chloride Carbon Dioxide BUN Creatinine Glucose 106 H POC Glucose 122 H 109 H Lactic Acid Calcium Ionized Calcium Magnesium AST ALT Alkaline Phosphatase Lactate Dehydrogenase NT-Pro-B Natriuret Pep Total Protein Albumin Arterial Blood Glucose Arterial Blood Ionized Calcium Urine WBC (Auto) Phenytoin Crossmatch
[2020-10-20] MEDS: DEXTROSE 10% IN WATER 1,000 ML IV SCH (09:51)
[2020-10-20] MEDS: GLYCOPYRROLATE 1 MG TAB PO SCH ×2 (10:00→22:43)
--- NOTE | 2020-10-20 11:58 | Consultation ---
History of Present Illness - Reason for Consult Consult date: 10/20/20 DVT Requesting physician: DOMINGO BENITEZ - History of Present Illness 30 yo F with hx of ADHD, morbid obesity, fibromyalgia, GERD, Irritable Bowel Syndrome, Migraines who presented to hospital on 10/02/20 with seizures. Patient was 36w5d at the time and underwent emergent csection due to eclampsia, cardiac arrest. She also underwent supracervical abdominal hysterectomy secondary to Uterine Atony, Hemorrhage and Disseminated Intravascular Coagulation (DIC). In addition to this, the patient has been intubated and on the vent since 10/02/20 and is unable to be extubated due to mental status. Vascular consulted for DVT of the right upper extremity. It sounds like this was found during a work-up for fever of unknown origin and patient was found to have a DVT of the right upper extremity. She has palpable radial pulses and dorsalis pedis pulses bilaterally. No ischemia of the upper or lower extremities. Patient has protective bandages of her left forearm and hand which was to prevent further skin breakdown issues. Past History Past Medical History: GERD, hypertension, seizures, other (IBD, MIGRAINES, Anxiety, Genital Herpes, Obesity) Past Surgical History: Social history: , full code Family history: hypertension Medications and Allergies Allergies Allergy/AdvReac Type Severity Reaction Status Date / Time egg Allergy Severe Anaphylaxis Verified 05/22/20 16:09 NSAIDS (Non-Steroidal Allergy Severe Unknown Verified 05/22/20 16:09 Anti-Inflamma Sulfa (Sulfonamide Allergy Severe Anaphylaxis Verified 05/22/20 16:09 Antibiotics) ibuprofen Allergy Intermediate Bleeding Verified 05/22/20 16:09 latex Allergy Hives Verified 05/22/20 16:09 plecanatide [From Trulance] Allergy Anaphylaxis Verified 05/22/20 16:09 adhesive tape AdvReac Intermediate Unknown Verified 05/22/20 16:09 metoclopramide [From Reglan] AdvReac Unknown Verified 05/22/20 16:09 Home Medications Medication Instructions Recorded Confirmed Last Taken Type Pantoprazole [Protonix TAB] 20 mg PO DAILY 05/10/19 08/20/20 05/10/19 05:00 History busPIRone 15 mg PO DAILY 01/15/20 08/20/20 Unknown History Albuterol Sulfate [Proventil Hfa] 6.7 gm IH Q4HR PRN #1 hfa.aer.ad 04/07/20 08/20/20 Unknown Rx Topiramate (Nf) [Trokendi XR CAP] 100 mg PO DAILY 08/20/20 08/20/20 Unknown History oxyCODONE /ACETAMINOPHEN [Percocet 1 tab PO Q6HR 08/20/20 08/20/20 Unknown History 5/325 mg] Active Meds: Active Medications Acetaminophen (Acetaminophen 325 Mg/10.15 Ml Oral Liqd Unit Dose) 650 mg FEEDTUBE Q6H PRN PRN Reason: Non Cardiac Pain or Temp>100.5 Last Admin: 10/16/20 00:13 Dose: 650 mg Documented by: Albuterol/Ipratropium (Ipratropium/Albuterol Sulfate 3 Ml Ampul.Neb) 1 ampul IH Q8HRT [facility] Last Admin: 10/20/20 09:02 Dose: 1 ampul Documented by: Lipase/Protease/Amylase (Lipase 10,500/Protease 25,000/Amylase 43,750 (Units) Dr Barakat) 1 each FEEDTUBE PRN PRN PRN Reason: For Clogged Feeding Tube Famotidine (Famotidine 20 Mg Tab) 20 mg PO BID [facility] Last Admin: 10/20/20 09:35 Dose: 20 mg Documented by: Furosemide (Furosemide 40 Mg Tab) 40 mg PO QDAY [facility] Last Admin: 10/20/20 09:35 Dose: 40 mg Documented by: Glycopyrrolate (Glycopyrrolate 1 Mg Tab) 1 mg PO BID [facility] Last Admin: 10/20/20 10:00 Dose: 1 mg Documented by: Hydralazine HCl (Hydralazine 20 Mg/1 Ml Inj) 20 mg IV Q6H PRN PRN Reason: SBP >170 Last Admin: 10/17/20 07:20 Dose: 20 mg Documented by: Hydralazine HCl (Hydralazine 25 Mg Tab) 50 mg PO Q8HR [facility] Last Admin: 10/20/20 05:34 Dose: 50 mg Documented by: Hydrophilic Ointment (Lip Therapy Vaseline) 1 applic TP Q2HR PRN PRN Reason: Dry Lips Dextrose (D10w) 1,000 mls @ 75 mls/hr IV DIRECT [facility] Last Admin: 10/20/20 09:51 Dose: 75 mls/hr Documented by: Cefepime HCl (Cefepime/Ns 2 Gm/100 Ml) 2 gm in 100 mls @ 200 mls/hr IV Q12HR [facility]; Protocol Last Admin: 10/20/20 09:34 Dose: 200 mls/hr Documented by: Metronidazole (Flagyl 500 Mg/100 Ml) 500 mg in 100 mls @ 100 mls/hr IV Q8H [facility]; Protocol Last Admin: 10/20/20 05:34 Dose: 100 mls/hr Documented by: Vancomycin HCl 1,750 mg/ (Sodium Chloride) 535 mls @ 333.333 mls/hr IV Q12H [facility] Last Admin: 10/20/20 01:35 Dose: 333.333 mls/hr Documented by: Labetalol HCl (Labetalol 100 Mg Tab) 300 mg PO TID [facility] Last Admin: 10/20/20 08:32 Dose: 300 mg Documented by: Multi-Ingred Cream/Lotion/Oil/Oint (Mineral Oil/Petrolatum, White Ophth Oint 3.5 Gm) 1 applic OU Q4HR PRN PRN Reason: Dry Eye(s) Simple Syrup (Simple Syrup 15 Ml) 15 ml FEEDTUBE PRN PRN PRN Reason: Hypoglycemia Simple Syrup (Simple Syrup 15 Ml) 30 ml FEEDTUBE PRN PRN PRN Reason: Hypoglycemia Sodium Bicarbonate (Sodium Bicarbonate 325 Mg Tab) 325 mg FEEDTUBE PRN PRN PRN Reason: For Clogged Feeding Tube Sodium Bicarbonate (Sodium Bicarbonate 650 Mg Tab) 1,300 mg PO TID [facility] Last Admin: 10/20/20 08:32 Dose: 1,300 mg Documented by: Topiramate (Topiramate Tab 25 Mg Tab) 50 mg PO Q12HR [facility] Last Admin: 10/20/20 09:35 Dose: 50 mg Documented by: Vancomycin HCl (Vancomycin 250 Mg/10 Ml Oral Liqd) 125 mg PO Q6HR [facility]; Protocol Stop: 10/20/20 23:59 Last Admin: 10/20/20 05:34 Dose: 125 mg Documented by: Review of Systems ROS unobtainable: due to mental status Exam - Constitutional Vitals: Temp Pulse Resp BP Pulse Ox 99.6 F 105 H 28 H 136/83 97 10/20/20 08:00 10/20/20 11:30 10/20/20 11:30 10/20/20 11:30 10/20/20 11:30 General appearance: Present: other (Intubated, noncommunicative, does not try to respond) - EENT Eyes: Absent: EOM intact (Does not tract) ENT: other (Intubated, noncommunicative, does not try to respond) - Respiratory Respiratory effort: other (Intubated) - Extremities Extremities: no ischemia, pulses intact (As described in HPI, bilateral radial, ulnar and dorsalis pedis pulses palpable ; could not easily access the posterior tibial site), normal temperature, normal color, abnormal (Bandages left upper extremity, heel protector boots,) - Musculoskeletal Musculoskeletal: other (Intubated) - Psychiatric Psychiatric: other (Intubated) Results - Labs CBC & Chem 7: 10/17/20 04:57 10/20/20 07:59 Labs: Abnormal lab results 10/20/20 10/20/20 Range/Units 05:40 07:59 Glucose 106 H (65-100) mg/dL POC Glucose 109 H (70-105) mg/dL Assessment and Plan 30-year-old female with multiple medical issues including eclampsia status post and ultimately hysterectomy and cardiac arrest with what appears to be a poor neurologic outcome. Her postoperative course was also complicated by diffuse intravascular coagulopathy. Right upper extremity swelling is not out of proportion to the left upper extremity. Patient was found to have a DVT of the right upper extremity upon jordan ultrasound working up fever of unknown origin. No surgical indications. Recommend anticoagulation for 3 months. Given need for PEG and trach, heparin or Lovenox may be beneficial. Afterwards, due to limited mobility, patient would probably benefit from low-dose anticoagulation for life (10 mg Xarelto p.o. daily or 2.5 mg Eliquis p.o. twice daily). Would recommend getting a hematology evaluation given the proximity of the thrombotic event to her diffuse intravascular coagulopathic event, but I suspect they will agree with these recommendations.
[2020-10-20 14:13] LABS: Hemoglobin A2 Prime SEE SCANNED RESULT; Hemoglobin Barts SEE SCANNED RESULT; Hemoglobin E SEE SCANNED RESULT; Hemoglobin G SEE SCANNED RESULT; Hemoglobin Lepore SEE SCANNED RESULT; Hemoglobin O-Arab SEE SCANNED RESULT; IEF Confirm SEE SCANNED RESULT; Interpretation SEE SCANNED RESULT; Sickle Solubility Test SEE SCANNED RESULT
--- NOTE | 2020-10-20 14:20 | Event Note ---
Date: 10/20/20 Follow up: Patient chart reviewed. Acute DVT noted with vascular recs to start therapeutic lovenox or hepgtt with transition to oral AC when able. Patient started on therapeutic lovenox with last dose at 9 am today. Discussed trach/peg with patient' Danilo Dimas and all questions answered. We discussed risks, benefits, alternatives. Consent obtained. Patient on schedule for tomorrow 10/21/20 @730 am in OR. Patient's RN notified. Plan: 1. NPO p MN - hold TF at MN 2. stop lovenox - was written as an order to be held but was administered at 9am. Will reorder on POD 1 3. CBC, BMP, INR in am 4. consent witnessed and on chart
--- NOTE | 2020-10-20 15:02 | Progress Note ---
Assessment and Plan Cultures: 10/05/2020 Blood culture: no growth 10/11/2020 blood culture: No growth 10/11/2020 tracheal aspirate: Usual respiratory jaylan 10/14/2020 blood culture: GNR, GPC 10/15/2020 blood culture: Pending A/P: 30-year-old female with GERD, hypertension, seizure disorder was admitted to the hospital at 36 weeks with seizures. She became hypoxic and pulseless requiring CPR. Following emergent section, patient developed hemorrhage, DIC. She has been admitted to ICU, remains on the vent: #Persistent fever, sepsis is likely secondary to bacteremia: ?PICC, no acute intra-abdominal source noted on CT #Status post arrest 10/07/2020: Apparently had a brief code due to ?ET tube clot/plugging. #Initial shock, DIC/persistent fever: Secondary to hemorrhage, ?possible sepsis. Possible pneumonia versus fluid overload. ?Central fever v/s from VTE. Noted diarrhea ? Cdiff #Acute kidney injury: resolved #Acute respiratory failure: remains on the vent. #Transaminitis: ?HELLP. Improving. #Preeclampsia # hemorrhage: Status post , status post supracervical hysterectomy. #Encephalopathy post cardiac arrest: Neurology on board. #C. difficile: On oral vancomycin Recs: -ICU requested new PICC line to be placed while patient ongoing bacteremia. It will have to be replaced after blood cultures are cleared and patient stabilized. -Follow-up repeat blood cultures -Follow-up ID and JOSHUA of blood cultures -Continue empiric Cefepime -Stop Flagyl -Continue IV vanco until GPC in cultures identified. -Continue p.o. vancomycin to complete 10 days of therapy. Monitor diarrhea output while receiving -Discussed with ericka Nielsen to receive trach and PEG today. Should not interfere with infectious processes. Julee Oneill MD [facility] ([facility] O: [phone] F: [phone] Subjective Date of service: 10/20/20 Principal diagnosis: Eclampsia/HELLP Syndrome, ADOLPH, DIC; s/p , s/p supracervical hyst Interval history: Febrile to 100.4. No acute changes. For trach and PEG. Blood cultures still awaiting speciation of gram-negative rods. Objective - Exam Narrative Exam: Constitutional: awake, intubated, on the vent Head, Ears, Nose: Normocephalic, atraumatic. Eyes: Conjunctivae/corneas clear. No icterus.. Neck: intubated Oral: intubated Cardiovascular: S1, S2 + Respiratory: AE fair bilaterally and equal GI: Soft, bowel sounds +. lower abdominal incision present with dressing Musculoskeletal: edematous extremities, no cyanosis. Skin: No rash or abscess Hem/Lymphatic: No palpable cervical or supraclavicular nodes. No lymphangitis Psych: no agitation Neurological: awake, doesn't follow commands, but opens eyes, intubated, on the vent, exam limited - Constitutional Vitals: Vital Signs Temp Pulse Resp BP Pulse Ox 99.6 F 95 H 26 H 119/61 95 10/20/20 08:00 10/20/20 14:15 10/20/20 14:15 10/20/20 14:30 10/20/20 14:30 Temperature -Last 24 Hours Temperature 99.6 F Temperature 97.7 F Temperature 99.2 F Temperature 99.6 F Temperature 100.4 F - Labs CBC & Chem 7: 10/17/20 04:57 10/20/20 07:59 Labs: Abnormal lab results 10/20/20 10/20/20 Range/Units 05:40 07:59 Glucose 106 H (65-100) mg/dL POC Glucose 109 H (70-105) mg/dL
[2020-10-20 17:06] LABS: Basophils # (Auto) 0.2 K/mm3 (0.0-0.1); Basophils % (Auto) 1.1 % (0.0-1.8); Eosinophils # (Auto) 0.2 K/mm3 (0.0-0.4); Eosinophils % (Auto) 0.8 % (0.0-4.3); Hematocrit 33.1 % (30.3-42.9); Hemoglobin 10.9 gm/dl (10.1-14.3); Lymphocytes # (Auto) 2.1 K/mm3 (1.2-5.4); Lymphocytes % (Auto) 11.2 % (13.4-35.0); Mean Corpuscular HGB Conc 33 % (30-34); Mean Corpuscular Volume 87 fl (79-97); Monocytes # (Auto) 1.5 K/mm3 (0.0-0.8); Monocytes % (Auto) 8.1 % (0.0-7.3); Platelet Count 547 K/mm3 (140-440); Red Cell Distribution Width 17.7 % (13.2-15.2)
[2020-10-21] MEDS: IPRATROPIUM/ALBUTEROL SULFATE 3 ML AMPUL.NEB IH SCH ×3 (00:21→15:28)
[2020-10-21] MEDS: VANCOMYCIN 1,750 MG in SODIUM CHLORIDE 0.9% 500 ML 500 ML IV SCH ×2 (01:01→15:55)
--- NOTE | 2020-10-21 01:19 | Hem/Onc Progress Note ---
Subjective Interval history: heme re-eval for R arm DVT axillary vein 30yo obese AA woman with 36wk gestation, presented yesterday morning with seizure-->hypoxia-->urgent C section-->hysterectomy developed severe anemia-->received RBC, plt, FFP, cryo since then she has been comatose, maybe opens eyes found 10/14/20 to have R arm DVT-->started lovenox planning PG tube-->lovenox held overnight R arm not swollen DATA reviewed below Hgb electrophoresis was nl IMPRESSION: recent severe anemia due to bleeding and "DIC" R arm DVT, r/o HIT (even though high plt count) high plt count is "reactive" PLAN/REC: labs to include PF4 Ab testing anticoag with lovenox 40mg daily in hospital consider "maintenance" xarelto 10mg daily if/when she leaves hospital Active Medications A Furosemide (Furosemide 40 Mg Tab) 40 mg PO QDAY [facility] Last Admin: 10/20/20 09:35 Dose: 40 mg Documented by: Cefepime HCl (Cefepime/Ns 2 Gm/100 Ml) 2 gm in 100 mls @ 200 mls/hr IV Q12HR [facility]; Protocol Last Admin: 10/20/20 22:43 Dose: 200 mls/hr Documented by: Vancomycin HCl 1,750 mg/ (Sodium Chloride) 535 mls @ 333.333 mls/hr IV Q12H [facility] Last Admin: 10/21/20 01:01 Dose: 333.333 mls/hr Documented by: Topiramate (Topiramate Tab 25 Mg Tab) 50 mg PO Q12HR [facility] Last Admin: 10/20/20 22:43 Dose: 50 mg Documented by: Laboratory Last Values WBC 18.8 K/mm3 (4.5-11.0) H 10/20/20 16:52 Hgb 10.9 gm/dl (10.1-14.3) 10/20/20 16:52 Plt Count 547 K/mm3 (140-440) H 10/20/20 16:52 Fibrinogen 336 mg/dl (211-480) 10/04/20 10:00 D-Dimer > 67587 ng/mlDDU (0-234) H 10/04/20 10:00 Creatinine 0.6 mg/dL (0.6-1.2) 10/20/20 07:59 Crossmatch See Detail 10/02/20 12:50 Objective - Constitutional Vitals: Last Vital Signs Temp 99.8 F H 10/21/20 00:00 Pulse 102 H 10/21/20 00:21 Resp 26 H 10/21/20 00:21 BP 100/62 10/21/20 00:19 Pulse Ox 100 10/21/20 00:19 - Labs Lab Results: Laboratory Results - last 24 hr 10/04/20 10/20/20 10/20/20 Unknown 05:40 07:59 WBC RBC Hgb Hgb Comment See scanned result Hct MCV MCH MCHC RDW Plt Count Lymph % (Auto) [place] % (Auto) Eos % (Auto) Baso % (Auto) Lymph # (Auto) [place] # (Auto) Eos # (Auto) Baso # (Auto) Seg Neutrophils % Seg Neutrophils # Sickle Cell Solubility See scanned result Hemoglobin A See scanned result Hemoglobin A2 See scanned result Hemoglobin A2 Prime See scanned result Hemoglobin C See scanned result Hemoglobin D See scanned result Hemoglobin E See scanned result Hgb F Diffential Stain See scanned result Hemoglobin F Quant See scanned result Hemoglobin G See scanned result Hemoglobin S See scanned result Hemoglobin [place] See scanned result Hemoglobin [place]arts See scanned result Hemoglobin Analilia See scanned result Variant Hemoglobin See scanned result Abnorm Hgb IEF Confirm See scanned result Hemoglobin Interpret See scanned result Hemoglobinopathy Note See scanned result Sodium 138 Potassium 4.1 Chloride 104.5 Carbon Dioxide 23 Anion Gap 15 BUN 16 Creatinine 0.6 Estimated GFR > 60 BUN/Creatinine Ratio 27 Glucose 106 H POC Glucose 109 H Calcium 9.4 Phosphorus 4.00 Magnesium 1.80 Vancomycin Trough 10/20/20 10/20/20 10/20/20 16:52 16:52 17:45 WBC 18.8 H RBC 3.80 Hgb 10.9 Hgb Comment Hct 33.1 MCV 87 MCH 29 MCHC 33 RDW 17.7 H Plt Count 547 H Lymph % (Auto) 11.2 L [place] % (Auto) 8.1 H Eos % (Auto) 0.8 Baso % (Auto) 1.1 Lymph # (Auto) 2.1 [place] # (Auto) 1.5 H Eos # (Auto) 0.2 Baso # (Auto) 0.2 H Seg Neutrophils % 78.8 H Seg Neutrophils # 14.8 H Sickle Cell Solubility Hemoglobin A Hemoglobin A2 Hemoglobin A2 Prime Hemoglobin C Hemoglobin D Hemoglobin E Hgb F Diffential Stain Hemoglobin F Quant Hemoglobin G Hemoglobin S Hemoglobin [place] Hemoglobin [place] Hemoglobin Analilia Variant Hemoglobin Abnorm Hgb IEF Confirm Hemoglobin Interpret Hemoglobinopathy Note Sodium Potassium Chloride Carbon Dioxide Anion Gap BUN Creatinine Estimated GFR BUN/Creatinine Ratio Glucose POC Glucose 100 Calcium Phosphorus Magnesium Vancomycin Trough 34.5 H 10/20/20 22:00 WBC RBC Hgb Hgb Comment Hct MCV MCH MCHC RDW Plt Count Lymph % (Auto) [place] % (Auto) Eos % (Auto) Baso % (Auto) Lymph # (Auto) [place] # (Auto) Eos # (Auto) Baso # (Auto) Seg Neutrophils % Seg Neutrophils # Sickle Cell Solubility Hemoglobin A Hemoglobin A2 Hemoglobin A2 Prime Hemoglobin C Hemoglobin D Hemoglobin E Hgb F Diffential Stain Hemoglobin F Quant Hemoglobin G Hemoglobin S Hemoglobin [place] Hemoglobin [place]arts Hemoglobin Analilia Variant Hemoglobin Abnorm Hgb IEF Confirm Hemoglobin Interpret Hemoglobinopathy Note Sodium Potassium Chloride Carbon Dioxide Anion Gap BUN Creatinine Estimated GFR BUN/Creatinine Ratio Glucose POC Glucose 99 Calcium Phosphorus Magnesium Vancomycin Trough Medications & Allergies - Medications Allergies/Adverse Reactions: Allergies egg Allergy (Severe, Verified 05/22/20 16:09) Anaphylaxis NSAIDS (Non-Steroidal Anti-Inflamma Allergy (Severe, Verified 05/22/20 16:09) Unknown pt c/o Palpitations, nervous, had to take benadryl Sulfa (Sulfonamide Antibiotics) Allergy (Severe, Verified 05/22/20 16:09) Anaphylaxis SWELING,NUMBNESS ibuprofen Allergy (Intermediate, Verified 05/22/20 16:09) Bleeding latex Allergy (Verified 05/22/20 16:09) Hives plecanatide [From Trulance] Allergy (Verified 05/22/20 16:09) Anaphylaxis adhesive tape Adverse Reaction (Intermediate, Verified 05/22/20 16:09) Unknown PAPER TAPE OK metoclopramide [From Reglan] Adverse Reaction (Verified 05/22/20 16:09) Unknown Home Medications: Home Medications Medication Instructions Recorded Confirmed Last Taken Type Pantoprazole [Protonix TAB] 20 mg PO DAILY 05/10/19 08/20/20 05/10/19 05:00 History busPIRone 15 mg PO DAILY 01/15/20 08/20/20 Unknown History Albuterol Sulfate [Proventil Hfa] 6.7 gm IH Q4HR PRN #1 hfa.aer.ad 04/07/20 08/20/20 Unknown Rx Topiramate (Nf) [Trokendi XR CAP] 100 mg PO DAILY 08/20/20 08/20/20 Unknown History oxyCODONE /ACETAMINOPHEN [Percocet 1 tab PO Q6HR 08/20/20 08/20/20 Unknown History 5/325 mg] Active Medications: Generic Name Dose Route Start Last Admin Trade Name Freq PRN Reason Stop Dose Admin Acetaminophen 650 mg 10/05/20 16:34 10/16/20 00:13 Acetaminophen 325 Mg/10.15 Ml Oral Liqd Unit Dose FEEDTUBE 650 mg Q6H PRN Administration Non Cardiac Pain or Temp>100.5 Albuterol/Ipratropium 1 ampul 10/10/20 20:00 10/21/20 00:21 Ipratropium/Albuterol Sulfate 3 Ml Ampul.Neb IH 1 ampul Q8HRT [facility] Administration Lipase/Protease/Amylase 1 each 10/05/20 11:09 Lipase 10,500/Protease 25,000/Amylase 43,750 (Units) Dr Barakat FEEDTUBE PRN PRN For Clogged Feeding Tube Famotidine 20 mg 10/07/20 10:00 10/20/20 22:42 Famotidine 20 Mg Tab PO 20 mg BID [facility] Administration Furosemide 40 mg 10/17/20 10:00 10/20/20 09:35 Furosemide 40 Mg Tab PO 40 mg QDAY [facility] Administration Glycopyrrolate 1 mg 10/20/20 10:00 10/20/20 22:43 Glycopyrrolate 1 Mg Tab PO 1 mg BID [facility] Administration Hydralazine HCl 20 mg 10/07/20 11:49 10/17/20 07:20 Hydralazine 20 Mg/1 Ml Inj IV 20 mg Q6H PRN Administration SBP >170 Hydralazine HCl 50 mg 10/17/20 09:00 10/20/20 22:50 Hydralazine 25 Mg Tab PO Not Given Q8HR [facility] Hydrophilic Ointment 1 applic 10/04/20 06:55 Lip Therapy Vaseline TP Q2HR PRN Dry Lips Dextrose 1,000 mls @ 75 mls/hr 10/13/20 11:00 10/20/20 09:51 D10w IV 75 mls/hr DIRECT [facility] Administration Cefepime HCl 2 gm in 100 mls @ 200 mls/hr 10/14/20 22:00 10/20/20 22:43 Cefepime/Ns 2 Gm/100 Ml IV 200 mls/hr Q12HR [facility] Administration Protocol Vancomycin HCl 1,750 mg/ 535 mls @ 333.333 mls/hr 10/20/20 02:00 10/21/20 01:01 Sodium Chloride IV 333.333 mls/hr Q12H [facility] Administration Labetalol HCl 300 mg 10/17/20 09:00 10/20/20 20:42 Labetalol 100 Mg Tab PO 300 mg TID [facility] Administration Multi-Ingred Cream/Lotion/Oil/Oint 1 applic 10/04/20 06:55 Mineral Oil/Petrolatum, White Ophth Oint 3.5 Gm OU Q4HR PRN Dry Eye(s) Simple Syrup 15 ml 10/05/20 11:09 Simple Syrup 15 Ml FEEDTUBE PRN PRN Hypoglycemia Simple Syrup 30 ml 10/05/20 11:09 Simple Syrup 15 Ml FEEDTUBE PRN PRN Hypoglycemia Sodium Bicarbonate 325 mg 10/05/20 11:09 Sodium Bicarbonate 325 Mg Tab FEEDTUBE PRN PRN For Clogged Feeding Tube Sodium Bicarbonate 1,300 mg 10/13/20 14:00 10/20/20 20:43 Sodium Bicarbonate 650 Mg Tab PO 1,300 mg TID [facility] Administration Topiramate 50 mg 10/05/20 11:00 10/20/20 22:43 Topiramate Tab 25 Mg Tab PO 50 mg Q12HR [facility] Administration
[2020-10-21] MEDS: DEXTROSE 10% IN WATER 1,000 ML IV SCH ×2 (03:07→21:35)
[2020-10-21] MEDS: hydrALAZINE 25 MG TAB PO SCH ×3 (05:26→21:34)
--- NOTE | 2020-10-21 07:26 | Anesthesia Consultation ---
Anesthesia Consult and Med Hx Date of service: 10/21/20 - Airway Intubation Access Assessment: Possibly Difficult (intubated since 10/02) - Pulmonary Exam CTA: No (coarse breath sounds b/l) - Cardiac Exam Cardiac Exam: RRR - Pre-Operative Health Status ASA Pre-Surgery Classification: ASA4 Proposed Anesthetic Plan: General - Pulmonary Hx Respiratory Symptoms: Yes (vent dependent resp failure) - Cardiovascular System Hx Hypertension: No Hx Heart Attack/AMI: No (cardiac arrest on admission) Hx Cardia Arrhythmia: No - Central Nervous System CVA: No (minimal neurologic recovery since cardiac arrest) Hx Back Pain: Yes (fibromyalgia, chronic opioid use per chart review) Hx Psychiatric Problems: Yes (generalize anxiety) - Gastrointestinal Hx Gastroesophageal Reflux Disease: Yes - Endocrine Hx Renal Disease: Yes (ADOLPH this admission now improved) Hx Liver Disease: No Hx Insulin Dependent Diabetes: No Hx Non-Insulin Dependent Diabetes: No Hx Thyroid Disease: No - Hematic Hx Anemia: Yes (DIC on admission, resolved. Hematology following) - Other Systems Hx Obesity: Yes (BMI 39) - Additional Comments Anesthesia Medical History Comments: Presented with eclampsia and cardiac arrest now s/p emergent c-hyst. Intubated during rescucitation and remains vent dependent 2/2 mental status. Hospital course complicated by post hemorrhage, DIC, ADOLPH, DVT, and c-diff infection. Now scheduled for trach/PEG in OR.
--- NOTE | 2020-10-21 07:26 | Anesthesia Day of Surgery ---
Anesthesia Day of Surgery - Day of Surgery Patient Examined: Yes Patient H&P Reviewed: Yes Patient is NPO: Yes
[2020-10-21] MEDS: SODIUM BICARBONATE 650 MG TAB PO SCH ×3 (08:00→21:13)
--- NOTE | 2020-10-21 09:35 | Post Anesthesia Evaluation ---
- Post Anesthesia Evaluation Patient Participated: No Airway Patent: Yes (tracheostomy) Stable Respiratory Function: Yes Nausea/Vomiting: No Temp > 96.8F: Yes Pain Manageable: Yes Adequeate Hydration: Yes Anesthesia Complications: No Patient on Ventilator: Yes (placed on vent by RT) Other Comments: Transported to ICU with AMBU, VS monitored and stable.
--- NOTE | 2020-10-21 09:48 | Procedure Note ---
Date of procedure: 10/21/20 Pre-op diagnosis: VDRF Post-op diagnosis: same Procedure: Percutaneous tracheostomy, Fiberoptic bronchoscopy, PEG tube placement Findings: HPI and indication: Patient is a [id number]-year-old female who with a protracted hospital course due to eclampsia, emergent , cardiac arrest, ventilator dependent respiratory failure. Was recommended that the patient undergo tracheostomy and PEG tube placement by pulmonary critical care. Patient was deemed an acceptable candidate for these procedures. All risk benefits, alternatives to surgery discussed with the patient's spouse Danilo Dimas. All questions were answered and consent obtained. Procedure in detail: The patient was identified in the ICU and brought down to the operating room and positioned in supine position in the hospital bed. Consent was verified on the chart timeout was performed. The neck was prepped and draped in usual sterile fashion. Anesthesia was administered. A shoulder roll was placed, with the patient's neck mildly hyperextended. Dr. Bravo performed fiberoptic bronchoscopy throughout the entire procedure. The fiberoptic bronchoscope was inserted through the endotracheal tube via the adapter and the trachea examined. The trachea was unremarkable and the 7.5 ET tube was approximately 3 cm from juaquin at 22 cm at the lip. 1% lidocaine was infiltrated into the skin and subcutaneous tissue approximately 2 fingerbreadths above the sternal notch. A 2 cm incision was made in a horizontal fashion using a 15 blade. Bleeding from the skin was controlled with electrocautery. Using a hemostat the soft tissues were bluntly dissected until the trachea was encountered. The ET tube was then pulled back slowly to 16 cm. Using the introducer needle, the trachea was entered under direct visualization. The wire was passed down the trachea towards the juaquin. Introducer needle was then removed. The trachea was then serially dilated, after which a 8 Thai Shiley tracheostomy tube was inserted. The balloon was visualized via fiberoptic bronchoscopy. The balloon was inflated, patient placed back on ventilator. There was end-tidal CO2 detected and tidal volumes assessed which were satisfactory. The bronchoscope was then placed through the tracheostomy and showed good positioning of the tracheostomy approximately 4cm above the juaquin and no bleeding. It was applied to the incision around the tracheostomy tube and then a drain sponge was placed between the skin and tracheostomy. The tracheostomy was secured to the patient's neck using a tracheostomy strap. Next we proceeded with PEG tube placement. Dr. Bravo performed EGD during the entire procedure. A mouthguard was placed through which a flexible endoscope was passed through the mouth and into the esophagus. The NG tube was visualized along the way. The endoscope was advanced through the esophagus and into the stomach. The stomach was unremarkable. The stomach was insufflated and transillumination performed. An area of transillumination was visualized in the left upper quadrant and marked. The skin was then prepped and draped in usual sterile fashion. Local anesthetic was infiltrated to the skin at the intended incision site. A small incision was made in the skin using an 11 blade. An introducer needle/breakaway sheath was inserted directly through this incision into the stomach under direct endoscopic visualization. The needle was removed. The wire was passed and grasped with a snare by the co- surgeon and the wire pulled along with the endoscope through the mouth. The PEG tube was assembled onto the wire and pulled back through the mouth and down into the stomach. The outer bumper was at 3 cm at the skin. The PEG tube was cut to size and assembled in the usual fashion. A drain sponge was applied between the skin and the PEG tube. The endoscope was then reinserted into the mouth and advanced into the stomach. The PEG tube inner bumper was seen to lay flush against the gastric mucosa without tension. There is no bleeding. The scope was then withdrawn back into the stomach and retroflexed. The entirety of the stomach was unremarkable. The NG tube was withdrawn. The stomach was then desufflated and the endoscope withdrawn. A post op chest x-ray is pending. The patient tolerated the procedures well. All sharps were disposed of appropriately. The patient was taken back to the ICU in stable condition. Anesthesia: dreda BARBOSA Surgeon: DAT [employer] Lawyer: ANJU BRAVO (cosurgeon) Estimated blood loss: minimal Pathology: none Condition: stable Disposition: ICU
[2020-10-21] MEDS ORDERED: LIPASE 10,500/PROTEASE 25,000/AMYLASE 43,750 (UNITS) DR CAP FEEDTUBE PRN (09:51)
[2020-10-21] MEDS ORDERED: SIMPLE SYRUP 15 ML FEEDTUBE PRN (09:51)
--- NOTE | 2020-10-21 10:17 | Progress Note ---
Assessment and Plan Assessment and plan: 30 year old -Mosoth[place] female CHE 10/25/20 at 36w5d who presents with seizures in triage on 10/02/20. Pt was not able to provide history but per pt's , she presented to the hospital to return a 24 hour urine specimen for analysis. She then suddenly reported that she did not feel good. She was taken to labor and delivery and shortly after arrival, she began seizing. During this time, a code met was called because the patient became hypoxic. She was then noted to be without a pulse. Chest compressions were started immediately, and the patient was emergently taken to the operating room for delivery of the fetus. Off note, This patient has had care at [facility] with comanagement by [facility] since 11 wks complicated by ADHD, morbid obesity, generalized anxiety disorder, panic attacks, chronic narcotic use, fibromyalgia, GERD, Irritable Bowel Syndrome, Migraines, h/o endometrial ablation and ovarian vein embolization, genital herpes, insomnia, LGA fetus, nausea and vomiting, polyhydramnios, quad screen positive for Down's Syndrome, and previous x 3. She is GBS negative. Acute respiratory failure with hypoxia Sepsis Preeclampsia Cardiac arrest DIC (disseminated intravascular coagulation) Shock ADOLPH (acute kidney injury) Acute Metabolic Encephalopathy ?Hypoxic DVT SVT in the RUE 11:30: Pt brought to L&D triage for evaluation of possible labor. Pt accompanied by her spouse. Pt spouse poor historian; unable to obtain history- allergies at this time. Pt taken from registration to triage area via WC. Pt unresponsive, actively seizing with snorous respirations. automotive professional, Kassy, called and requesting assistance. 11:35: Multiple staff at bedside. Pt 02 sat 67% on nonrebreather, unable to read BP at this time. Yifan Theodore CRNA, at bedside for intubation and assistance with IV insertion. INT attempt by multiple RNs unsuccessful at this time. 11:42: Pt being bagged by KORIN, 02% 79%. No pulse palpated, compressions started at this time; bharati young called and Dr. Newberry preparing OR for emergent c/s. 11:44: Continued compressions on stretcher while transporting pt to OR 1. Pt being bagged with jaw thrust manuever in place by KORIN Stringer student. 11:45: Arrival to OR 1. Dr. Newberry and Dr. Portillo present for emergent c/s. Code team arrived for continued care. patient revived and c/s done Patient has been bleeding from C/s site followed by supracervical hysterectomy for severe bleeding Patient transfused multiple units of PRBC, Patient in DIC. Transferred to the ICU 10/03. Patient seen and examined at bedside this morning. Patient is nonresponsive and mechanically ventilated. On pressors. Labs reviewed-has leukocytosis, anemia, thrombocytopenia, ADOLPH and lactic acidosis. Started on IV antibiotics to cover possible sepsis secondary to DIC. Hematology oncology recommendations appreciated-needs additional cryoprecipitate and FFP. Monitor D-dimer, fibrinogen and frequent labs. Nephrology consulted for lactic acidosis and ADOLPH. 10/04. Remains mechanically ventilated. [place] antibiotics. Labs shows improved acidosis - lactic acid 3.5. Hb drop noted. Getting transfused 2 units PRBCs. Platelet count is ~40k. Continue to monitor labs closely. Critical care team on board. 10/05; xray reviewed, concerning for multifocal infilrate, likely underlying Pneumonia, will add ID consult to assist with management of this critically ill patient, start tube feed, closely monitor renal system 10/06: Resumed care, remains on mechanical ventilation. No active bleeding, H&H stable. Continue to monitor CBC and BMP. Continue IV antibiotic for underlying pneumonia. Follow critical care and ID recommendation. 10/07: Remains on mechanical ventilation. No active bleeding, H&H stable. Critical care following, wean off ventilation as tolerated. 10/08: Patient had another cardiac arrest last night. Remains on mechanical ventilation, update family. Continue supportive care -poor prognosis 10/09: Called patient mother and discussed about patient care and management. Answered all question to best of my knowledge and family satisfaction. Patient remains on mechanical ventilation, cardiac arrest x2 so far. Critically sick, poor prognosis 10/10: remains on mechanical ventilation. h/h stable, no active bleeding. monitor CBC/BMP 10/11: WBC trended up with diarrhea, started on vancomycin po. remains on MV, off pressor, tolerating TF 10/12: remains on MV, off pressor, tolerating TF. called family for update but unable to reach, could not leave message as it was full. cont supportive care, wean off vent as tolerated. 10/13/2020; patient is on mechanical ventilation, tolerating tube feeding. Patient has labored breathing. Neuro was consulted and recommend MRI. Patient is on Precedex. Rectal tube in place. 10/14/2020; patient is on mechanical ventilation, Precedex. Patient had fever and blood culture ordered. Patient is on IV vancomycin per ID recommendation. Neuro consulted and recommend MRI. Continue to monitor. Prognosis is guarded. 10/15/2020; patient is on mechanical ventilation, Precedex. Patient had fever and blood culture ordered. Patient is on IV vancomycin per ID recommendation. Neuro consulted and recommend MRI. Continue to monitor. Prognosis is guarded. 12: Remains with C.DIFF and Bactermia, Poor prognosis. No purposeful movement. MRI and EEG discussed with Intensvisit, Continue aggressive BP control. 10/18: Blood pressure better controlled MRI done 10/15 shows mild improvement in edema. We will continue to monitor mother was at bedside yesterday. Nursing documentation trach and PEG discussed with the mother including goals of care. She is still in denial about the gravity of her daughters her condition which is understandable considering her age. Continue aggressive management at this time. Await for bacteremia to clear by ID before placing PICC line. 10/19: Patient for possible PEG and Trach, ID following, repeat cultures remain negative. Poor prognosis 10/20: Pt noted to DVT and SVT in the RUE, Vascular consult and will also obtain Hematology for possible considering changing in Anticoagulation. CONTINUE TO MONITOR H/H and PLT. Family updated by [employer]ens[employer]. Heparin gtt started. Will check CBC and BMP 6: Continue supporive care, Diarrhea now resolving, But still with persistent Fever, May need repeat CT/AP per ID, still with profused Encephalopathy The high probability of a clinically significant, sudden or life threatening deterioration of the [MULTIPLE ORGAN] system(s) required my full and direct at tention, intervention and personal management. The aggregate critical care time was [35] minutes. This time is in addition to time spent performing reported procedures but includes the following: [X] Data Review and interpretation [X] Patient assessment and monitoring of vital signs [X] Documentation [X] Medication orders and management History Interval history: Patient seen and examined, remains critical ill on the ventilator. Hospitalist Physical - Physical exam Narrative exam: VITAL SIGNS: Reviewed. GENERAL: Intubated HEAD: No signs of head trauma. Opens her eyes but no purposeful movement EYES: Pupils are equal. MOUTH: OT in place NECK: No adenopathy, no JVD. CHEST: Rales posteriorly CARDIAC: normal S1 and S2, without murmurs, gallops, or rubs. ABDOMEN: Soft, non tender and non distended. surgical wound in tact, No rebound or guarding, and no masses palpated. Bowel Sounds normal. AVINASH drain intact with bloody fluid MUSCULOSKELETAL: No edema NEUROLOGIC EXAM: Intubated SKIN: No obvious lesions - Constitutional Vitals: Temp Pulse Resp BP Pulse Ox 99.2 F 89 14 136/100 98 10/21/20 04:00 10/21/20 10:00 10/21/20 10:00 10/21/20 10:00 10/21/20 10:00 General appearance: Present: other (Intubated, noncommunicative, does not try to respond) HEART Score - HEART Score Age: < 45 Risk factors: 1-2 risk factors - Critical Actions Critical Actions: >7 pts:50-65% risk of adverse cardiac event. Early invasive measures Results - Labs CBC & Chem 7: 10/22/20 07:26 10/21/20 13:54 Labs: Laboratory Last Values WBC 18.8 K/mm3 (4.5-11.0) H 10/20/20 16:52 RBC 3.80 M/mm3 (3.65-5.03) 10/20/20 16:52 Hgb 10.9 gm/dl (10.1-14.3) 10/20/20 16:52 Hgb Comment See scanned result 10/04/20 Unknown Hct 33.1 % (30.3-42.9) 10/20/20 16:52 MCV 87 fl (79-97) 10/20/20 16:52 MCH 29 pg (28-32) 10/20/20 16:52 MCHC 33 % (30-34) 10/20/20 16:52 RDW 17.7 % (13.2-15.2) H 10/20/20 16:52 Plt Count 547 K/mm3 (140-440) H 10/20/20 16:52 Lymph % (Auto) 11.2 % (13.4-35.0) L 10/20/20 16:52 Chaves % (Auto) 8.1 % (0.0-7.3) H 10/20/20 16:52 Eos % (Auto) 0.8 % (0.0-4.3) 10/20/20 16:52 Baso % (Auto) 1.1 % (0.0-1.8) 10/20/20 16:52 Lymph # (Auto) 2.1 K/mm3 (1.2-5.4) 10/20/20 16:52 Chaves # (Auto) 1.5 K/mm3 (0.0-0.8) H 10/20/20 16:52 Eos # (Auto) 0.2 K/mm3 (0.0-0.4) 10/20/20 16:52 Baso # (Auto) 0.2 K/mm3 (0.0-0.1) H 10/20/20 16:52 Add Manual Diff Complete 10/15/20 05:50 Total Counted 100 10/15/20 05:50 Seg Neutrophils % 78.8 % (40.0-70.0) H 10/20/20 16:52 Seg Neuts % (Manual) 90.0 % (40.0-70.0) H 10/15/20 05:50 Band Neutrophils % 2.0 % 10/15/20 05:50 Lymphocytes % (Manual) 4.0 % (13.4-35.0) L 10/15/20 05:50 Reactive Lymphs % (Man) 1.0 % 10/02/20 12:18 Monocytes % (Manual) 4.0 % (0.0-7.3) 10/15/20 05:50 Eosinophils % (Manual) 1.0 % (0.0-4.3) 10/14/20 04:00 Myelocytes % 2.0 % 10/02/20 13:05 Metamyelocytes % 1.0 % 10/14/20 04:00 Nucleated RBC % Not Reportable 10/15/20 05:50 Seg Neutrophils # 14.8 K/mm3 (1.8-7.7) H 10/20/20 16:52 Seg Neutrophils # Man 20.9 K/mm3 (1.8-7.7) H 10/15/20 05:50 Band Neutrophils # 0.5 K/mm3 10/15/20 05:50 Lymphocytes # (Manual) 0.9 K/mm3 (1.2-5.4) L 10/15/20 05:50 Abs React Lymphs (Man) 0.0 K/mm3 10/15/20 05:50 Monocytes # (Manual) 0.9 K/mm3 (0.0-0.8) H 10/15/20 05:50 Eosinophils # (Manual) 0.0 K/mm3 (0.0-0.4) 10/15/20 05:50 Basophils # (Manual) 0.0 K/mm3 (0.0-0.1) 10/15/20 05:50 Metamyelocytes # 0.0 K/mm3 10/15/20 05:50 Myelocytes # 0.0 K/mm3 10/15/20 05:50 Promyelocytes # 0.0 K/mm3 10/15/20 05:50 Blast Cells # 0.0 K/mm3 10/15/20 05:50 WBC Morphology Not Reportable 10/15/20 05:50 Hypersegmented Neuts Not Reportable 10/15/20 05:50 Hyposegmented Neuts Not Reportable 10/15/20 05:50 Hypogranular Neuts Not Reportable 10/15/20 05:50 Smudge Cells Not Reportable 10/15/20 05:50 Toxic Granulation Not Reportable 10/15/20 05:50 Toxic Vacuolation Not Reportable 10/15/20 05:50 Dohle Bodies Not Reportable 10/15/20 05:50 Pelger-Huet Anomaly Not Reportable 10/15/20 05:50 Ester Rods Not Reportable 10/15/20 05:50 Platelet Estimate Consistent w auto 10/15/20 05:50 Clumped Platelets Not Reportable 10/15/20 05:50 Plt Clumps, EDTA Not Reportable 10/15/20 05:50 Large Platelets Not Reportable 10/15/20 05:50 Giant Platelets Not Reportable 10/15/20 05:50 Platelet Satelliting Not Reportable 10/15/20 05:50 Plt Morphology Comment Not Reportable 10/15/20 05:50 RBC Morphology Not Reportable 10/15/20 05:50 Dimorphic RBCs Not Reportable 10/15/20 05:50 Polychromasia Not Reportable 10/15/20 05:50 Hypochromasia Few 10/15/20 05:50 Poikilocytosis Not Reportable 10/15/20 05:50 Anisocytosis 1+ 10/15/20 05:50 Microcytosis Not Reportable 10/15/20 05:50 Macrocytosis Not Reportable 10/15/20 05:50 Spherocytes Not Reportable 10/15/20 05:50 Pappenheimer Bodies Not Reportable 10/15/20 05:50 Sickle Cells Not Reportable 10/15/20 05:50 Target Cells Not Reportable 10/15/20 05:50 Tear Drop Cells Not Reportable 10/15/20 05:50 Ovalocytes Not Reportable 10/15/20 05:50 Stomatocytes Few 10/14/20 04:00 Helmet Cells Not Reportable 10/15/20 05:50 Burk-Hyrum Bodies Not Reportable 10/15/20 05:50 Brashear Rings Not Reportable 10/15/20 05:50 Antoine Cells Not Reportable 10/15/20 05:50 Bite Cells Not Reportable 10/15/20 05:50 Crenated Cell Not Reportable 10/15/20 05:50 Elliptocytes Not Reportable 10/15/20 05:50 Acanthocytes (Spur) Not Reportable 10/15/20 05:50 Rouleaux Not Reportable 10/15/20 05:50 Hemoglobin C Crystals Not Reportable 10/15/20 05:50 Schistocytes Not Reportable 10/15/20 05:50 Malaria parasites Not Reportable 10/15/20 05:50 Sickle Cell Solubility See scanned result 10/04/20 Unknown Hemoglobin A See scanned result 10/04/20 Unknown Hemoglobin A2 See scanned result 10/04/20 Unknown Hemoglobin A2 Prime See scanned result 10/04/20 Unknown Hemoglobin C See scanned result 10/04/20 Unknown Hemoglobin D See scanned result 10/04/20 Unknown Hemoglobin E See scanned result 10/04/20 Unknown Hgb F Diffential Stain See scanned result 10/04/20 Unknown Hemoglobin F Quant See scanned result 10/04/20 Unknown Hemoglobin G See scanned result 10/04/20 Unknown Hemoglobin S See scanned result 10/04/20 Unknown Hemoglobin O-Douglas See scanned result 10/04/20 Unknown Hemoglobin Barts See scanned result 10/04/20 Unknown Hemoglobin Analilia See scanned result 10/04/20 Unknown Variant Hemoglobin See scanned result 10/04/20 Unknown Abnorm Hgb IEF Confirm See scanned result 10/04/20 Unknown Hemoglobin Interpret See scanned result 10/04/20 Unknown Hemoglobinopathy Note See scanned result 10/04/20 Unknown Sharad Bodies Not Reportable 10/15/20 05:50 Hem Pathologist Commnt No 10/15/20 05:50 PT 13.0 Sec. (12.2-14.9) 10/05/20 05:00 INR 1.00 (0.87-1.13) 10/05/20 05:00 APTT 31.6 Sec. (24.2-36.6) 10/03/20 00:40 Fibrinogen 336 mg/dl (211-480) 10/04/20 10:00 D-Dimer > 17539 ng/mlDDU (0-234) H 10/04/20 10:00 ABG pH 7.473 (7.320-7.450) H 10/13/20 07:18 POC ABG pCO2 20.7 mmHg (32.0-48.0) L 10/13/20 07:18 ABG pCO2 25.0 mm Hg 10/10/20 04:42 POC ABG pO2 137.9 mmHg (83-108) H 10/13/20 07:18 ABG pO2 95.2 mm Hg (80.0-90.0) H 10/10/20 04:42 POC ABG HCO3 14.8 10/13/20 07:18 ABG HCO3 20.6 mmol/L (20.0-26.0) 10/10/20 04:42 ABG O2 Saturation 97.9 % (95.0-99.0) 10/10/20 04:42 ABG O2 Content 15.4 (0.0-44) 10/10/20 04:42 POC ABG Base Excess -6.9 10/13/20 07:18 ABG Base Excess -0.8 mmol/L (-2.0-3.0) 10/10/20 04:42 ABG Hemoglobin 11.2 (12.0-17.5) L 10/13/20 07:18 ABG Oxyhemoglobin 98.3 (94-98) H 10/13/20 07:18 ABG Carboxyhemoglobin 1.4 % (0.0-5.0) 10/10/20 04:42 ABG Methemoglobin 0.3 (0.0-1.5) 10/13/20 07:18 ABG Sodium 135.9 mmol/L (136.0-145.0) L 10/13/20 07:18 ABG Potassium 3.7 mmol/L (3.40-4.50) 10/13/20 07:18 ABG Chloride 111.0 mmol/L (98-107) H 10/13/20 07:18 ABG Glucose 109 mg/dL (65-95) H 10/13/20 07:18 VBG pH 6.949 (7.320-7.420) L* 10/02/20 Unknown Oxyhemoglobin 95.9 % (95.0-99.0) 10/10/20 04:42 Carboxyhemoglobin 0.3 (0.5-1.5) L 10/13/20 07:18 FiO2 30.0 10/13/20 07:18 Sodium 138 mmol/L (137-145) 10/20/20 07:59 Potassium 4.1 mmol/L (3.6-5.0) 10/20/20 07:59 Chloride 104.5 mmol/L (98-107) 10/20/20 07:59 Carbon Dioxide 23 mmol/L (22-30) 10/20/20 07:59 Anion Gap 15 mmol/L 10/20/20 07:59 BUN 16 mg/dL (7-17) 10/20/20 07:59 Creatinine 0.6 mg/dL (0.6-1.2) 10/20/20 07:59 Estimated GFR > 60 ml/min 10/20/20 07:59 BUN/Creatinine Ratio 27 % 10/20/20 07:59 Glucose 106 mg/dL (65-100) H 10/20/20 07:59 POC Glucose 99 mg/dL (70-105) 10/20/20 22:00 Lactic Acid 1.90 mmol/L (0.7-2.0) 10/04/20 22:00 Uric Acid 7.5 mg/dL (3.5-7.6) 10/02/20 13:05 Calcium 9.4 mg/dL (8.4-10.2) 10/20/20 07:59 Ionized Calcium 4.4 mg/dL (4.8-5.6) L 10/07/20 21:00 Phosphorus 4.00 mg/dL (2.5-4.5) 10/20/20 07:59 Magnesium 1.80 mg/dL (1.7-2.3) 10/20/20 07:59 Total Bilirubin 0.90 mg/dL (0.1-1.2) 10/10/20 04:00 AST 122 units/L (5-40) H 10/10/20 04:00 ALT 81 units/L (7-56) H 10/10/20 04:00 Alkaline Phosphatase 94 units/L (35-129) 10/10/20 04:00 Lactate Dehydrogenase 769 units/L (91-180) H 10/02/20 13:05 NT-Pro-B Natriuret Pep 2788 pg/mL (0-450) H 10/04/20 10:00 Total Protein 5.2 g/dL (6.3-8.2) L 10/10/20 04:00 Albumin 2.7 g/dL (3.9-5) L 10/10/20 04:00 Albumin/Globulin Ratio 1.1 % 10/10/20 04:00 Procalcitonin 0.58 ng/mL (<0.15) 10/11/20 15:33 Arterial Blood Glucose 109 mg/dL (65-95) H 10/13/20 07:18 Arterial Blood Ionized Calcium 4.6 mg/dL (4.6-5.3) 10/13/20 07:18 Urine Color Yellow (Yellow) 10/11/20 13:26 Urine Turbidity Clear (Clear) 10/11/20 13:26 Urine pH 7.0 (5.0-7.0) 10/11/20 13:26 Ur Specific [place] 1.014 (1.003-1.030) 10/11/20 13:26 Urine Protein 100 mg/dl mg/dL (Negative) 10/11/20 13:26 Urine Glucose (UA) Neg mg/dL (Negative) 10/11/20 13:26 Urine Ketones Neg mg/dL (Negative) 10/11/20 13:26 Urine Blood Mod (Negative) 10/11/20 13:26 Urine Nitrite Neg (Negative) 10/11/20 13:26 Urine Bilirubin Neg (Negative) 10/11/20 13:26 Urine Urobilinogen < 2.0 mg/dL (<2.0) 10/11/20 13:26 Ur Leukocyte Esterase Sm (Negative) 10/11/20 13:26 Urine WBC (Auto) 24.0 /HPF (0.0-6.0) H 10/11/20 13:26 Urine RBC (Auto) 59.0 /HPF (0.0-6.0) 10/11/20 13:26 Urine Bacteria (Auto) 1+ /HPF (Negative) 10/11/20 13:26 Urine Mucus Few /HPF 10/11/20 13:26 Vancomycin Trough 34.5 ug/mL (5.0-20.0) H 10/20/20 16:52 Random Vancomycin 10.7 ug/mL (0-40.0) 10/16/20 13:09 Phenytoin 5.7 ug/mL (10.0-20.0) L 10/13/20 07:00 C. difficile Tox (PCR) Positive (Negative) 10/16/20 10:22 Coronavirus (PCR) Negative (Negative) 10/08/20 14:15 Blood Type O POSITIVE 10/02/20 12:50 Antibody Screen Negative 10/02/20 12:50 Crossmatch See Detail 10/02/20 12:50 Microbiology: Microbiology 10/14/20 14:57 Peripheral/Venous Blood Culture - Preliminary Enterobacter Cloacae 10/14/20 14:57 Peripheral/Venous Blood Culture - Preliminary Enterobacter Cloacae 10/15/20 16:55 Peripheral/Venous Blood Culture - Final NO GROWTH AFTER 5 DAYS - Diagnostic Impressions Diagnostic Impressions: Echocardiogram 10/03/20 13:42 Transthoracic Echocardiogram Indication: S/P Cardiac Arrest R/O Cardiomyopathy BP: 133/71 Conclusions *Global left ventricular systolic function is normal. *The estimated ejection fraction is 60-65%. *There is trace of mitral regurgitation. *The right 0heart chambers are both slightly dilated. *There is mild tricuspid regurgitation. *There is mild-moderate pulmonary hypertension. *The right ventricular systolic pressure is calculated at 44 mmHg. *The study quality is technically difficult. Findings Procedure Info: The study quality is technically difficult. The study is technically limited due to patient body habitus. The study was technically limited due to the patient's inability to lay in the left lateral decubitus position. Left Ventricle: The left ventricular chamber size is normal. There is no left ventricular hypertrophy. Global left ventricular systolic function is normal. The estimated ejection fraction is 60-65%. Left Atrium: The left atrial chamber size is normal. Right Ventricle: The right ventricle is slightly dilated. Right Atrium: The right atrium is mildly dilated. Aortic Valve: The aortic valve leaflets are mildly thickened. There is no evidence of aortic regurgitation. There is no evidence of aortic stenosis. Mitral Valve: The mitral valve leaflets are mildly thickened. There is trace of mitral regurgitation. There is no evidence of mitral stenosis. Tricuspid Valve: There is mild tricuspid regurgitation. The right ventricular systolic pressure is calculated at 44 mmHg. There is evidence of mild pulmonary hypertension. Pulmonic Valve: There is trace pulmonic regurgitation. Pericardium: There is no pericardial effusion. Aorta: There is no dilatation of the ascending aorta. There is no dilatation of the aortic root. Venous: The inferior vena cava is dilated. Measurements Chambers 2D Name Value Normal Range IVSd (2D) 1 cm (0.6 - 1.1) LVPWd (2D) 1.01 cm (0.6 - 1.1) LVIDd (2D) 4.58 cm (3.7 - 5.6) LVIDs (2D) 3.17 cm (2 - 3.8) LV FS (2D) 30.93 % - EF Teichholz (2D) 58.66 % - Ao root diameter (2D) 2.94 cm (2 - 3.7) Volumes/Mass Name Value Normal Range LA ESV SP 4CH (A/L) 72.82 ml - LA ESV SP 2CH (A/L) 66.86 ml - LA ESV BP (A/L) 74.49 ml - LA ESV SP 4CH (MOD) 71.03 ml - LA ESV SP 2CH (MOD) 64.3 ml - LV EDV SP 4CH (MOD) 98.82 ml - LV ESV SP 4CH (MOD) 24.8 ml - EF SP 4CH (MOD) 74.9 % - LV EDV SP 2CH (MOD) 86.1 ml - LV ESV SP 2CH (MOD) 36.93 ml - EF SP 2CH (MOD) 57.11 % - LV EDV BP 94.4 ml - LV ESV BP 32.66 ml - BP EF (MOD) 65.4 % - Diastolic/Systolic Function Name Value Normal Range MV E-wave Vmax 1.04 m/sec - MV deceleration time 160.46 msec - MV A-wave Vmax 0.92 m/sec - MV E:A ratio 1.14 ratio - Aortic Valve Name Value Normal Range AV Vmax 2.12 m/sec - AV VTI 22.37 cm - AV peak gradient 17.95 mmHg - AV mean gradient 7.29 mmHg - LVOT diameter 2.01 cm - LVOT Vmax 1.8 m/sec - LVOT VTI 27.17 cm - LVOT peak gradient 12.91 mmHg - LVOT mean gradient 6.83 mmHg - SV LVOT 86.42 ml - ANITA (continuity Vmax) 2.7 cm2 - ANITA (continuity VTI) 3.86 cm2 - Ascending Ao 3.18 cm - Tricuspid Valve Name Value Normal Range TV E-wave Vmax 0.88 m/sec - TR Vmax 3.01 m/sec - TR peak gradient 36.27 mmHg - RAP 8 mmHg - RVSP 44 mmHg - IVC diameter 2.65 cm (1.2 - 2.3) Pulmonic Valve/Qp:Qs Name Value Normal Range PV Vmax 1.22 m/sec - PV peak gradient 5.91 mmHg - RVOT Vmax 0.87 m/sec - RVOT VTI 13.32 cm - RVOT peak gradient 3 mmHg - PV acceleration time 110.37 msec - [place]lin/IV: Voiding Method Indwelling Catheter IV Catheter Type [Left Wrist] INT / Saline Lock IV Catheter Type [Right Hand] INT / Saline Lock IV Catheter Type [Right INT / Saline Lock Antecubital] IV Catheter Type [Right Upper PICC Line arm] IV Catheter Type [Left Triple Lumen Cath Internal Jugular] IV Catheter Type [Left Hand] Peripheral IV IV Catheter Type [Left Peripheral IV Antecubital] Active Medications - Current Medications Current Medications: Generic Name Dose Route Start Last Admin Trade Name Freq PRN Reason Stop Dose Admin Acetaminophen 650 mg 10/05/20 16:34 10/16/20 00:13 Acetaminophen 325 Mg/10.15 Ml Oral Liqd Unit Dose FEEDTUBE 650 mg Q6H PRN Administration Non Cardiac Pain or Temp>100.5 Albuterol/Ipratropium 1 ampul 10/10/20 20:00 10/21/20 09:17 Ipratropium/Albuterol Sulfate 3 Ml Ampul.Neb IH 1 ampul Q8HRT ERINN Administration Lipase/Protease/Amylase 1 each 10/05/20 11:09 Lipase 10,500/Protease 25,000/Amylase 43,750 (Units) Dr Barakat FEEDTUBE PRN PRN For Clogged Feeding Tube Enoxaparin Sodium 40 mg 10/22/20 10:00 Enoxaparin 40 Mg/0.4 Ml Inj SUB-Q DAILY ERINN Protocol Famotidine 20 mg 10/07/20 10:00 10/20/20 22:42 Famotidine 20 Mg Tab PO 20 mg BID ERINN Administration Furosemide 40 mg 10/17/20 10:00 10/20/20 09:35 Furosemide 40 Mg Tab PO 40 mg QDAY ERINN Administration Glycopyrrolate 1 mg 10/20/20 10:00 10/20/20 22:43 Glycopyrrolate 1 Mg Tab PO 1 mg BID ERINN Administration Hydralazine HCl 20 mg 10/07/20 11:49 10/17/20 07:20 Hydralazine 20 Mg/1 Ml Inj IV 20 mg Q6H PRN Administration SBP >170 Hydralazine HCl 50 mg 10/17/20 09:00 10/21/20 05:26 Hydralazine 25 Mg Tab PO 50 mg Q8HR ERINN Administration Hydrophilic Ointment 1 applic 10/04/20 06:55 Lip Therapy Vaseline TP Q2HR PRN Dry Lips Dextrose 1,000 mls @ 75 mls/hr 10/13/20 11:00 10/21/20 03:07 D10w IV 75 mls/hr DIRECT ERINN Administration Cefepime HCl 2 gm in 100 mls @ 200 mls/hr 10/14/20 22:00 10/20/20 22:43 Cefepime/Ns 2 Gm/100 Ml IV 200 mls/hr Q12HR ERINN Administration Protocol Vancomycin HCl 1,750 mg/ 535 mls @ 333.333 mls/hr 10/20/20 02:00 10/21/20 01:01 Sodium Chloride IV 333.333 mls/hr Q12H ERINN Administration Labetalol HCl 300 mg 10/17/20 09:00 10/20/20 20:42 Labetalol 100 Mg Tab PO 300 mg TID ERINN Administration Multi-Ingred Cream/Lotion/Oil/Oint 1 applic 10/04/20 06:55 Mineral Oil/Petrolatum, White Ophth Oint 3.5 Gm OU Q4HR PRN Dry Eye(s) Simple Syrup 15 ml 10/05/20 11:09 Simple Syrup 15 Ml FEEDTUBE PRN PRN Hypoglycemia Simple Syrup 30 ml 10/05/20 11:09 Simple Syrup 15 Ml FEEDTUBE PRN PRN Hypoglycemia Sodium Bicarbonate 325 mg 10/05/20 11:09 Sodium Bicarbonate 325 Mg Tab FEEDTUBE PRN PRN For Clogged Feeding Tube Sodium Bicarbonate 1,300 mg 10/13/20 14:00 10/20/20 20:43 Sodium Bicarbonate 650 Mg Tab PO 1,300 mg TID ERINN Administration Topiramate 50 mg 10/05/20 11:00 10/20/20 22:43 Topiramate Tab 25 Mg Tab PO 50 mg Q12HR ERINN Administration Nutrition/Malnutrition Assess - Dietary Evaluation Nutrition/Malnutrition Findings: Nutrition Notes Start: 10/04/20 1 1:13 Freq: Status: Active Protocol: Document 10/15/20 08:34 (Rec: 10/15/20 08:39 [email or web address]) Nutrition Notes Initial or Follow up Reassessment Current Diagnosis Acute Kidney Injury, Respiratory Failure Other Pertinent Diagnosis Cardiac arrest, s/p c-sectuion and supracervial hysterectomy Current Diet Vital AF 1.2 at 65ml/hr Labs/Tests Reviewed Pertinent Medications Reviewed Height 5 ft 8 in Weight 118 kg [place] Body Weight (kg) 63.63 BMI 39.5 Weight change and time frame Wt change noted Weight Status Morbidly Obese Subjective/Other Information FU for TF tolerance. Observed TF running at goal rate and per RN pt is tolerating. Percent of energy/protein needs met: 100%/74% Burn Absent Trauma Absent GI Symptoms None Food Allergy Yes Current % PO Negligible Minimum of two criteria No Fluid Accumulation Mild (non-severe) #1 Nutrition Diagnosis Inadequate oral intake Diagnosis Progress(for reassessment Continues documentation) Is patient on ventilator? Yes Is Patient Ambulatory and/or Out of Bed No REE-([facility]-confined to bed) 2327.856 Kcal/Kg value to use for calculation 15 Approximate Energy Requirements Using 1770 kcal/Kg Calculation Used for Recommendations Kcal/kg Additional Notes Protein needs are up to 159g ( up to 2.5g/kg) Fluid needs are 1ml/kcal Nutrition Intervention Change Diet Order: Continue TF Nutrition Support: Vital AF 1.2 at 65 ml/hr. Flush with 100 ml q4h Kcal 1,872 Protein (gm) 117 Fluid (mL) 1,265 Goal #1 Meet at least 75% of energy and protein needs via TF Anticipated Discharge Needs: Unable to determine at this time Follow-Up By: 10/22/20 Additional Comments FU for TF tolerance
--- NOTE | 2020-10-21 10:57 | XRay Report ---
CHEST 1 VIEW INDICATION: trach. COMPARISON: 10/11/20 FINDINGS: SUPPORT DEVICES: Midline tracheostomy tube placement with interval removal of the other support devic es. HEART: Within normal limits. LUNGS/PLEURA: No acute air space or interstitial disease. No pneumothorax or pneumomediastinum. ADDITIONAL FINDINGS: None. IMPRESSION: 1. Midline tracheostomy tube. Clear lungs. Signer Name: Chris Yoder MD Signed: 10/21/2020 10:52 AM Workstation Name: [id number]
--- NOTE | 2020-10-21 11:00 | Progress Note ---
Assessment and Plan 30 y/o female with Eclampsia, s/p emergent section with DIC, acute respiratory failure and worsening renal function. 10/21/20: Trach and peg placed. No sedation. Restart Lovenox for Upper Ext DVT. Restart feeds when surgery states ok to use PEG. C. Diff treatment per ID. Guarded prognosis. Will be a supervisor intermediates wean. Hopeful to wean off vent at least and then can transfer to floor. 10/20/20: NPO after midnight. DVT study just read from 10/14 on yesterday showing upper ext DVT. Started on Lovenox but need to hold therapy until after surgery. could be source of fevers. No sedation. 10/19/20: Stable BP. Will meet/talk with family at noon over the phone with myself and case management. Need to discuss goals of care and what next steps would be. Patient would need trach and peg and transfer to LTACH if family ok with this. Follow up speciation of GNR's in blood. Has been on Cefepime. Continues therapy for C. Diff. Guarded prognosis. Continue daily PSV trials but not ready for extubation secondary to mental state. 10/18/20: Blood pressure is much better with the addition of meds started on yesterday. Need to have family meeting jesica in regards to goals of care. Continue Daily PSV trials but not ready for extubation. Continue therapy for C. Diff per ID. 10/17/20: CT scan was of no help in regards to fevers. C. Diff is positive and BP now is more uncontrolled despite increasing labetalol. Today will increase to 300 TID. Added TID Hydralazine and added PO lasix given her mild pulmonary htn seen on echo. Spoke with mother over the phone and she requests to come see the patient. Given current circumstances, will allow her to come briefly today and then will speak with her at the bedside. No neurology is available at the time and suspect these will be the majority of her questions. Tolerated PSV briefly yesterday and will do again today but not for extended periods as given her mental state she is not a candidate for extubation. I will also ask the mother about supervisor intermediates care (trach and peg) when she comes today. Overall prognosis is guarded to poor. If oral meds cannot regulate blood pressure, may need Cardene drip. Continue therapy for C. Diff per ID. 10/16/20: Needs a different consent for CT of abdomen and pelvis. I have signed the one in the chart. The nurse who obtained the first consent did obtain consent for contrast, it just wasn't listed on the that consent. Await neurology input on EEG vs MRI findings. Patient has now been intubated 14 days. Need to have family meeting to discuss goals of care but I suspect family will want to hear from Neurology as well. Tolerating PSV trials but will only do briefly as patient is not a candidate for extubation today. Will increase labetalol to 200 TID based on MRI report. Overall prognosis is guarded to poor. 10/15/2020: MRI and CT's today. Continue Precedex and PRN fent pushes. ID ordered C. Diff test. Continue D10 and tube feeds. Continue vent support. Suspect patient will need trach and peg. 10/14/2020: Await MRI. Continue Precedex and only use PRN fent pushes. CM states that there is a . Now with persistent fever, will obtain CT abdomen pelvis with contrast to see if source for fevers can be found. Continue D10 as sugars are still not elevated. 10/12/2020: Patient seen on 10/12 but note entered late. Formal neurology consult today. Hold all sedation if possible and only use precedex. CM to find out if there is truly a or if the decisions would fall on mother as I do not know the ages of her children but I don't think they are of age to make decisions. Guarded prognosis given mental state. 10/08/2020: Will start patient on precedex today. Plan is to wean off fent drip. Will increase buspar to BID. Need to see patient on as little sedation as possible to determine neurological status. EEG has still not been read. Mag stopped yesterday. Largest concern now is neurologic function. 10/07/2020: Head CT unremarkable. Await EEG to be read. Will stop mag Drip. If seizures occur then will load with Keppra and start BID dosing of this. Appreciate OB note. Continue D10 as sugars are still not severely elevated until feeds are at goal. PRN ativan present as well. Will add dilaudid for pain control. Increased BB to TID and added PRN hydralazine 10/06/2020: Stat Head CT today. Likely needs EEG. Will order. Continue Mag drip and follow up levels. Continue feeds. Continue to wean FiO2 as tolerated. Hold sedatives but can give PRN ativan as needed for seizure activity. Continue D10 as Tube feeds are not at goal yet. Guarded prognosis with mental state. 10/05/2020: Feed today. Stop Albumin and Abx. Will stop D10 once feeds start but will continue q2 hour FSBS until 3 consecutive >180. H/H stable. Will continue to aggressively wean FiO2. Patient has a 6.5 tube that will likely impede PSV trials given her size so will attempt to change out. Also will restart her home meds for anxiety and chronic migraine therapy. Prognosis is still guarded but promising given her hemodynamic stability. Continue chowdhury for accurate urine out put. 10/04/2020: Much improved today. Still very ill however. Down to just one pressor. Still with good urine output. Await chemistry results from this am. Likely can stop Bicarb drip given improvement in pH but would like to see bicarb on blood work. Agree with continued transfusion of blood products. Needs fibrinongen levels as well as repeat coags. I cannot see the standing orders on my screen so will call down to lab and let them know what's needed. I know she has had at leas 2 cryo's but I am not exactly sure if the count is accurate in the computer in regards to PRBC's and FFP's. Platelets lower this am but still greater than 30K. Continue chowdhury for I/O measurement. Will start to wean FiO2 on vent. CXR looks like edema but oxygenation is stable right now. Resu scitation is the most important thing right now. Will continue abx therapy at least 24 more hours. Prognosis is still very guarded but patient showing signs of improvement. 1. CV-Extremely volume deplete as well as intrasvascular depletion. Will continue to bolus with LR and saline as needed. Will add Albumin to help with intravascular volume. Spoke with OB attending over phone yesterday. No acute indication for steroids at this time. Serial H/H's given maximum pressor requirements. Will transfuse to keep up with AVINASH drain and help with weaning. Severely acidotic but improving. Likely adding to pressor requirement. GOAL is map of 65 and will wean accordingly. Will start to wean Sohail first. Ordered art line as well. 2. Heme-DIC secondary to Eclampsia, possible sepsis but white count could be stress related. Will continue to transfuse PRBC's and FFP with Cryo as needed. Follow Fibrinogen levels. Tele Terrell has been consulted and note reviewed. Will give one cryo for every 6 units of PRBC's transfused. has gotten one cryo, awaiting the other to thaw out. Plts at 72K right now. Hold on further transfusion. May need to consider Factor VII if execessive bleeding continues. Will also put on broad spec abx therapy incase of possible sepsis causing DIC. Hopeful with correction of coaguloapthy she will improve. 3. Very very guarded prognosis. Will continue aggressive resuscitation. Family to come visit given exceptional case and extremely guarded prognosis. CCT 31 minutes. Subjective Date of service: 10/21/20 Principal diagnosis: Eclampsia/HELLP Syndrome, ADOLPH, DIC; s/p , s/p supracervical hyst Interval history: Patient back from OR. Stable. Tolerated procedure well. Still slightly sedated from surgery but no active sedation being administered now. Objective Vital Signs - 12hr 10/20/20 10/20/20 10/20/20 23:00 23:03 23:15 Temperature Pulse Rate 97 H 97 H 97 H Pulse Rate [ Anterior Bilateral Throughout] Pulse Rate [ From Monitor] Respiratory 16 17 17 Rate Respiratory Rate [Anterior Bilateral Throughout] Blood Pressure 103/68 103/68 103/68 O2 Sat by Pulse 96 99 99 Oximetry 10/20/20 10/20/20 10/21/20 23:30 23:45 00:00 Temperature 99.8 F H Pulse Rate 97 H 96 H 97 H Pulse Rate [ Anterior Bilateral Throughout] Pulse Rate [ 97 H From Monitor] Respiratory 18 16 18 Rate Respiratory Rate [Anterior Bilateral Throughout] Blood Pressure 107/65 107/65 100/62 O2 Sat by Pulse 97 100 97 Oximetry 10/21/20 10/21/20 10/21/20 00:15 00:19 00:21 Temperature Pulse Rate 99 H 96 H Pulse Rate [ 102 H Anterior Bilateral Throughout] Pulse Rate [ From Monitor] Respiratory 20 Rate Respiratory 26 H Rate [Anterior Bilateral Throughout] Blood Pressure 100/62 100/62 O2 Sat by Pulse 99 100 Oximetry 10/21/20 10/21/20 10/21/20 00:30 00:45 01:00 Temperature Pulse Rate 99 H 100 H 103 H Pulse Rate [ Anterior Bilateral Throughout] Pulse Rate [ From Monitor] Respiratory 18 16 19 Rate Respiratory Rate [Anterior Bilateral Throughout] Blood Pressure 107/59 107/59 116/73 O2 Sat by Pulse 98 100 98 Oximetry 10/21/20 10/21/20 10/21/20 01:15 01:30 01:45 Temperature Pulse Rate 104 H 105 H 102 H Pulse Rate [ Anterior Bilateral Throughout] Pulse Rate [ From Monitor] Respiratory 18 16 15 Rate Respiratory Rate [Anterior Bilateral Throughout] Blood Pressure 107/59 115/73 115/73 O2 Sat by Pulse 100 99 100 Oximetry 10/21/20 10/21/20 10/21/20 02:00 02:15 02:30 Temperature Pulse Rate 104 H 95 H 100 H Pulse Rate [ Anterior Bilateral Throughout] Pulse Rate [ From Monitor] Respiratory 18 16 22 Rate Respiratory Rate [Anterior Bilateral Throughout] Blood Pressure 122/81 122/81 113/64 O2 Sat by Pulse 97 100 98 Oximetry 10/21/20 10/21/20 10/21/20 02:45 03:00 03:15 Temperature Pulse Rate 96 H 103 H 104 H Pulse Rate [ Anterior Bilateral Throughout] Pulse Rate [ From Monitor] Respiratory 21 18 22 Rate Respiratory Rate [Anterior Bilateral Throughout] Blood Pressure 113/64 128/77 128/77 O2 Sat by Pulse 100 96 100 Oximetry 10/21/20 10/21/20 10/21/20 03:30 03:45 04:00 Temperature 99.2 F Pulse Rate 105 H 91 H 103 H Pulse Rate [ Anterior Bilateral Throughout] Pulse Rate [ 107 H From Monitor] Respiratory 20 16 21 Rate Respiratory Rate [Anterior Bilateral Throughout] Blood Pressure 132/81 132/81 128/76 O2 Sat by Pulse 96 100 97 Oximetry 10/21/20 10/21/20 10/21/20 04:15 04:30 04:45 Temperature Pulse Rate 99 H 91 H 103 H Pulse Rate [ Anterior Bilateral Throughout] Pulse Rate [ From Monitor] Respiratory 22 17 19 Rate Respiratory Rate [Anterior Bilateral Throughout] Blood Pressure 128/76 119/75 119/75 O2 Sat by Pulse 100 99 100 Oximetry 10/21/20 10/21/20 10/21/20 05:00 05:15 05:26 Temperature Pulse Rate 93 H 101 H 108 H Pulse Rate [ Anterior Bilateral Throughout] Pulse Rate [ From Monitor] Respiratory 20 14 Rate Respiratory Rate [Anterior Bilateral Throughout] Blood Pressure 130/71 130/71 130/71 O2 Sat by Pulse 97 100 Oximetry 10/21/20 10/21/20 10/21/20 05:30 05:45 06:00 Temperature Pulse Rate 111 H 93 H 107 H Pulse Rate [ Anterior Bilateral Throughout] Pulse Rate [ From Monitor] Respiratory 19 19 21 Rate Respiratory Rate [Anterior Bilateral Throughout] Blood Pressure 145/80 145/80 145/68 O2 Sat by Pulse 97 100 95 Oximetry 10/21/20 10/21/20 10/21/20 06:15 06:30 06:45 Temperature Pulse Rate 109 H 111 H 102 H Pulse Rate [ Anterior Bilateral Throughout] Pulse Rate [ From Monitor] Respiratory 17 13 21 Rate Respiratory Rate [Anterior Bilateral Throughout] Blood Pressure 145/68 131/74 131/74 O2 Sat by Pulse 100 94 98 Oximetry 10/21/20 10/21/20 10/21/20 07:00 07:15 08:59 Temperature Pulse Rate 100 H 104 H 93 H Pulse Rate [ Anterior Bilateral Throughout] Pulse Rate [ From Monitor] Respiratory 20 22 12 Rate Respiratory Rate [Anterior Bilateral Throughout] Blood Pressure 131/74 127/80 153/72 O2 Sat by Pulse 99 99 100 Oximetry 10/21/20 10/21/20 10/21/20 09:01 09:05 09:14 Temperature Pulse Rate 99 H 107 H Pulse Rate [ Anterior Bilateral Throughout] Pulse Rate [ From Monitor] Respiratory 29 H Rate Respiratory Rate [Anterior Bilateral Throughout] Blood Pressure 149/80 145/68 O2 Sat by Pulse 96 99 95 Oximetry 10/21/20 10/21/20 10/21/20 09:15 09:16 09:30 Temperature Pulse Rate 99 H 92 H Pulse Rate [ 96 H Anterior Bilateral Throughout] Pulse Rate [ From Monitor] Respiratory 21 12 Rate Respiratory 24 Rate [Anterior Bilateral Throughout] Blood Pressure 127/80 149/96 O2 Sat by Pulse 97 96 Oximetry 10/21/20 10/21/20 09:45 10:00 Temperature Pulse Rate 90 89 Pulse Rate [ Anterior Bilateral Throughout] Pulse Rate [ From Monitor] Respiratory 16 14 Rate Respiratory Rate [Anterior Bilateral Throughout] Blood Pressure 149/96 136/100 O2 Sat by Pulse 99 98 Oximetry Constitutional: comatose, other (critically ill on ventilator) Eyes: non-icteric ENT: oropharynx moist, other (orally intubated and not sedated) Neck: other (large in cirumference) Effort: normal Ascultation: Bilateral: clear, diminished breath sounds, other (coarse BS bilaterally w/ mild faint wheezes) Percussion: Bilateral: not dull Cardiovascular: regular rate and rhythm, other (no mrg) Gastrointestinal: normoactive bowel sounds, soft, other (post surgical changes with drain on the left side) Extremities: no cyanosis, pink and warm, anasarca Neurologic: other (unresponsive, not following commands, not tracking) Psychiatric: other (unable to assess) CBC and BMP: 10/20/20 16:52 10/20/20 07:59 ABG, PT/INR, D-dimer: ABG ABG pH 7.473 (7.320-7.450) H 10/13/20 07:18 POC ABG pCO2 20.7 mmHg (32.0-48.0) L 10/13/20 07:18 ABG pCO2 25.0 mm Hg 10/10/20 04:42 POC ABG pO2 137.9 mmHg (83-108) H 10/13/20 07:18 ABG pO2 95.2 mm Hg (80.0-90.0) H 10/10/20 04:42 POC ABG HCO3 14.8 10/13/20 07:18 ABG O2 Saturation 97.9 % (95.0-99.0) 10/10/20 04:42 PT/INR, D-dimer PT 13.0 Sec. (12.2-14.9) 10/05/20 05:00 INR 1.00 (0.87-1.13) 10/05/20 05:00 D-Dimer > 12806 ng/mlDDU (0-234) H 10/04/20 10:00 Abnormal lab findings: Abnormal Labs 10/02/20 10/02/20 10/02/20 12:03 12:18 12:18 WBC 14.9 H RBC Hgb 9.1 L Hct MCV MCH 22 L MCHC 28 L RDW 17.6 H Plt Count 102 L Lymph % (Auto) [place] % (Auto) Lymph # (Auto) [place] # (Auto) Baso # (Auto) Seg Neutrophils % Seg Neuts % (Manual) 36.0 L Lymphocytes % (Manual) 49.0 H Monocytes % (Manual) Nucleated RBC % 6.0 H Seg Neutrophils # Seg Neutrophils # Man Lymphocytes # (Manual) 7.3 H Monocytes # (Manual) PT INR APTT Fibrinogen D-Dimer ABG pH POC ABG pCO2 POC ABG pO2 ABG pO2 ABG HCO3 ABG Base Excess ABG Hemoglobin ABG Oxyhemoglobin ABG Sodium ABG Potassium ABG Chloride ABG Glucose VBG pH Oxyhemoglobin Carboxyhemoglobin Sodium 134 L Potassium Chloride Carbon Dioxide 12 L BUN 6 L Creatinine Glucose 390 H POC Glucose 451 H Lactic Acid Calcium Ionized Calcium Magnesium AST 135 H ALT 85 H Alkaline Phosphatase 172 H Lactate Dehydrogenase 641 H NT-Pro-B Natriuret Pep Total Protein 5.4 L Albumin 2.3 L Arterial Blood Glucose Arterial Blood Ionized Calcium Urine WBC (Auto) Vancomycin Trough Phenytoin Crossmatch 10/02/20 10/02/20 10/02/20 12:50 13:05 13:05 WBC 38.6 H RBC Hgb 8.9 L Hct 29.0 L MCV 73 L MCH 22 L MCHC RDW 17.2 H Plt Count Lymph % (Auto) [place] % (Auto) Lymph # (Auto) [place] # (Auto) Baso # (Auto) Seg Neutrophils % Seg Neuts % (Manual) Lymphocytes % (Manual) Monocytes % (Manual) Nucleated RBC % 2.0 H Seg Neutrophils # Seg Neutrophils # Man 20.1 H Lymphocytes # (Manual) 10.4 H Monocytes # (Manual) 2.3 H PT INR APTT Fibrinogen D-Dimer ABG pH POC ABG pCO2 POC ABG pO2 ABG pO2 ABG HCO3 ABG Base Excess ABG Hemoglobin ABG Oxyhemoglobin ABG Sodium ABG Potassium ABG Chloride ABG Glucose VBG pH Oxyhemoglobin Carboxyhemoglobin Sodium Potassium Chloride Carbon Dioxide BUN Creatinine Glucose POC Glucose Lactic Acid Calcium Ionized Calcium Magnesium AST 184 H ALT 113 H Alkaline Phosphatase Lactate Dehydrogenase 769 H NT-Pro-B Natriuret Pep Total Protein Albumin Arterial Blood Glucose Arterial Blood Ionized Calcium Urine WBC (Auto) Vancomycin Trough Phenytoin Crossmatch See Detail 10/02/20 10/02/20 10/02/20 16:25 16:35 16:35 WBC RBC Hgb Hct MCV MCH MCHC RDW Plt Count Lymph % (Auto) [place] % (Auto) Lymph # (Auto) [place] # (Auto) Baso # (Auto) Seg Neutrophils % Seg Neuts % (Manual) Lymphocytes % (Manual) Monocytes % (Manual) Nucleated RBC % Seg Neutrophils # Seg Neutrophils # Man Lymphocytes # (Manual) Monocytes # (Manual) PT INR APTT Fibrinogen D-Dimer ABG pH 7.031 L* POC ABG pCO2 POC ABG pO2 ABG pO2 116.8 H ABG HCO3 12.7 L ABG Base Excess -16.9 L ABG Hemoglobin 7.8 L ABG Oxyhemoglobin ABG Sodium ABG Potassium ABG Chloride ABG Glucose VBG pH Oxyhemoglobin 94.9 L Carboxyhemoglobin Sodium Potassium Chloride Carbon Dioxide BUN Creatinine Glucose 403 H POC Glucose Lactic Acid 11.40 H* Calcium 6.3 L D Ionized Calcium Magnesium AST 70 H ALT Alkaline Phosphatase Lactate Dehydrogenase NT-Pro-B Natriuret Pep Total Protein 1.9 L D Albumin 1.2 L Arterial Blood Glucose Arterial Blood Ionized Calcium Urine WBC (Auto) Vancomycin Trough Phenytoin Crossmatch 10/02/20 10/02/20 10/02/20 18:18 18:18 22:30 WBC 11.5 H RBC 2.06 L Hgb 5.5 L* D Hct 17.3 L* D MCV MCH 27 L MCHC RDW 19.5 H Plt Count 60 L Lymph % (Auto) [place] % (Auto) Lymph # (Auto) [place] # (Auto) Baso # (Auto) Seg Neutrophils % Seg Neuts % (Manual) Lymphocytes % (Manual) 8.0 L Monocytes % (Manual) 8.0 H Nucleated RBC % 8.0 H Seg Neutrophils # Seg Neutrophils # Man Lymphocytes # (Manual) 0.9 L Monocytes # (Manual) 0.9 H PT 37.1 H INR 3.71 H APTT 135.8 H* Fibrinogen D-Dimer ABG pH 7.067 L* POC ABG pCO2 POC ABG pO2 ABG pO2 183.0 H ABG HCO3 14.1 L ABG Base Excess -15.1 L ABG Hemoglobin 7.7 L ABG Oxyhemoglobin ABG Sodium ABG Potassium ABG Chloride ABG Glucose VBG pH Oxyhemoglobin Carboxyhemoglobin Sodium Potassium Chloride Carbon Dioxide BUN Creatinine Glucose POC Glucose Lactic Acid Calcium Ionized Calcium Magnesium AST ALT Alkaline Phosphatase Lactate Dehydrogenase NT-Pro-B Natriuret Pep Total Protein Albumin Arterial Blood Glucose Arterial Blood Ionized Calcium Urine WBC (Auto) Vancomycin Trough Phenytoin Crossmatch 10/02/20 10/02/20 10/03/20 Unknown Unknown 00:01 WBC RBC Hgb Hct MCV MCH MCHC RDW Plt Count Lymph % (Auto) [place] % (Auto) Lymph # (Auto) [place] # (Auto) Baso # (Auto) Seg Neutrophils % Seg Neuts % (Manual) Lymphocytes % (Manual) Monocytes % (Manual) Nucleated RBC % Seg Neutrophils # Seg Neutrophils # Man Lymphocytes # (Manual) Monocytes # (Manual) PT 61.1 H INR 6.92 H* APTT 158.7 H* Fibrinogen < 60 L* D-Dimer > 33734 H ABG pH POC ABG pCO2 POC ABG pO2 ABG pO2 ABG HCO3 ABG Base Excess ABG Hemoglobin ABG Oxyhemoglobin ABG Sodium ABG Potassium ABG Chloride ABG Glucose VBG pH 6.949 L* Oxyhemoglobin Carboxyhemoglobin Sodium Potassium Chloride Carbon Dioxide BUN Creatinine Glucose POC Glucose 196 H Lactic Acid Calcium Ionized Calcium Magnesium AST ALT Alkaline Phosphatase Lactate Dehydrogenase NT-Pro-B Natriuret Pep Total Protein Albumin Arterial Blood Glucose Arterial Blood Ionized Calcium Urine WBC (Auto) Vancomycin Trough Phenytoin Crossmatch 10/03/20 10/03/20 10/03/20 00:40 00:40 00:40 WBC RBC Hgb Hct MCV MCH MCHC RDW Plt Count Lymph % (Auto) [place] % (Auto) Lymph # (Auto) [place] # (Auto) Baso # (Auto) Seg Neutrophils % Seg Neuts % (Manual) Lymphocytes % (Manual) Monocytes % (Manual) Nucleated RBC % Seg Neutrophils # Seg Neutrophils # Man Lymphocytes # (Manual) Monocytes # (Manual) PT 15.1 H INR 1.21 H APTT Fibrinogen D-Dimer ABG pH POC ABG pCO2 POC ABG pO2 ABG pO2 ABG HCO3 ABG Base Excess ABG Hemoglobin ABG Oxyhemoglobin ABG Sodium ABG Potassium ABG Chloride ABG Glucose VBG pH Oxyhemoglobin Carboxyhemoglobin Sodium 136 L Potassium Chloride Carbon Dioxide BUN Creatinine 1.6 H D Glucose 106 H POC Glucose Lactic Acid 5.60 H* Calcium 6.5 L Ionized Calcium Magnesium AST 232 H ALT 104 H Alkaline Phosphatase Lactate Dehydrogenase NT-Pro-B Natriuret Pep Total Protein 3.9 L D Albumin 2.4 L Arterial Blood Glucose Arterial Blood Ionized Calcium Urine WBC (Auto) Vancomycin Trough Phenytoin Crossmatch 10/03/20 10/03/20 10/03/20 02:08 02:08 02:08 WBC 17.6 H RBC 3.27 L Hgb 9.9 L D Hct 29.9 L D MCV MCH MCHC RDW 16.5 H Plt Count 75 L Lymph % (Auto) [place] % (Auto) Lymph # (Auto) [place] # (Auto) Baso # (Auto) Seg Neutrophils % Seg Neuts % (Manual) 76.0 H Lymphocytes % (Manual) Monocytes % (Manual) Nucleated RBC % 8.0 H Seg Neutrophils # Seg Neutrophils # Man 13.4 H Lymphocytes # (Manual) Monocytes # (Manual) PT INR APTT Fibrinogen D-Dimer ABG pH POC ABG pCO2 POC ABG pO2 ABG pO2 ABG HCO3 ABG Base Excess ABG Hemoglobin ABG Oxyhemoglobin ABG Sodium ABG Potassium ABG Chloride ABG Glucose VBG pH Oxyhemoglobin Carboxyhemoglobin Sodium Potassium Chloride Carbon Dioxide 19 L BUN Creatinine 1.4 H Glucose 306 H POC Glucose Lactic Acid 10.50 H* Calcium 6.4 L Ionized Calcium Magnesium AST ALT Alkaline Phosphatase Lactate Dehydrogenase NT-Pro-B Natriuret Pep Total Protein Albumin Arterial Blood Glucose Arterial Blood Ionized Calcium Urine WBC (Auto) Vancomycin Trough Phenytoin Crossmatch 10/03/20 10/03/20 10/03/20 02:42 03:59 05:31 WBC RBC Hgb Hct MCV MCH MCHC RDW Plt Count Lymph % (Auto) [place] % (Auto) Lymph # (Auto) [place] # (Auto) Baso # (Auto) Seg Neutrophils % Seg Neuts % (Manual) Lymphocytes % (Manual) Monocytes % (Manual) Nucleated RBC % Seg Neutrophils # Seg Neutrophils # Man Lymphocytes # (Manual) Monocytes # (Manual) PT INR APTT Fibrinogen D-Dimer ABG pH 7.144 L POC ABG pCO2 54.4 H POC ABG pO2 ABG pO2 ABG HCO3 ABG Base Excess ABG Hemoglobin 10.0 L ABG Oxyhemoglobin ABG Sodium ABG Potassium ABG Chloride 108.0 H ABG Glucose 306 H VBG pH Oxyhemoglobin Carboxyhemoglobin Sodium Potassium Chloride Carbon Dioxide BUN Creatinine Glucose POC Glucose 209 H Lactic Acid 9.20 H* Calcium Ionized Calcium Magnesium AST ALT Alkaline Phosphatase Lactate Dehydrogenase NT-Pro-B Natriuret Pep Total Protein Albumin Arterial Blood Glucose 306 H Arterial Blood Ionized Calcium 3.7 L Urine WBC (Auto) Vancomycin Trough Phenytoin Crossmatch 12/19/20 12/19/20 12/19/20 09:00 09:00 09:00 WBC 27.4 H RBC 2.84 L Hgb 8.5 L Hct 25.1 L MCV MCH MCHC RDW 16.1 H Plt Count 72 L Lymph % (Auto) [place] % (Auto) Lymph # (Auto) [place] # (Auto) Baso # (Auto) Seg Neutrophils % Seg Neuts % (Manual) Lymphocytes % (Manual) 11.0 L Monocytes % (Manual) Nucleated RBC % 3.0 H Seg Neutrophils # Seg Neutrophils # Man 18.4 H Lymphocytes # (Manual) Monocytes # (Manual) 1.9 H PT INR APTT Fibrinogen D-Dimer ABG pH POC ABG pCO2 POC ABG pO2 ABG pO2 ABG HCO3 ABG Base Excess ABG Hemoglobin ABG Oxyhemoglobin ABG Sodium ABG Potassium ABG Chloride ABG Glucose VBG pH Oxyhemoglobin Carboxyhemoglobin Sodium Potassium Chloride Carbon Dioxide BUN Creatinine 1.7 H Glucose 216 H POC Glucose Lactic Acid 9.20 H* Calcium 6.3 L Ionized Calcium Magnesium AST 331 H ALT 171 H Alkaline Phosphatase Lactate Dehydrogenase NT-Pro-B Natriuret Pep Total Protein 3.7 L Albumin 1.9 L Arterial Blood Glucose Arterial Blood Ionized Calcium Urine WBC (Auto) Vancomycin Trough Phenytoin Crossmatch 10/03/20 10/03/20 10/03/20 11:20 11:46 11:50 WBC 28.7 H RBC 2.67 L Hgb 8.0 L Hct 23.7 L MCV MCH MCHC RDW 16.6 H Plt Count 76 L Lymph % (Auto) [place] % (Auto) Lymph # (Auto) [place] # (Auto) Baso # (Auto) Seg Neutrophils % Seg Neuts % (Manual) Lymphocytes % (Manual) Monocytes % (Manual) Nucleated RBC % Seg Neutrophils # Seg Neutrophils # Man Lymphocytes # (Manual) Monocytes # (Manual) PT INR APTT Fibrinogen D-Dimer ABG pH POC ABG pCO2 POC ABG pO2 ABG pO2 ABG HCO3 ABG Base Excess ABG Hemoglobin ABG Oxyhemoglobin ABG Sodium ABG Potassium ABG Chloride ABG Glucose VBG pH Oxyhemoglobin Carboxyhemoglobin Sodium Potassium Chloride Carbon Dioxide BUN Creatinine Glucose POC Glucose 125 H Lactic Acid 8.00 H* Calcium Ionized Calcium Magnesium AST ALT Alkaline Phosphatase Lactate Dehydrogenase NT-Pro-B Natriuret Pep Total Protein Albumin Arterial Blood Glucose Arterial Blood Ionized Calcium Urine WBC (Auto) Vancomycin Trough Phenytoin Crossmatch 10/03/20 10/04/20 10/04/20 11:50 00:40 00:40 WBC RBC Hgb 6.8 L Hct 19.4 L* MCV MCH MCHC RDW Plt Count 49 L Lymph % (Auto) [place] % (Auto) Lymph # (Auto) [place] # (Auto) Baso # (Auto) Seg Neutrophils % Seg Neuts % (Manual) Lymphocytes % (Manual) Monocytes % (Manual) Nucleated RBC % Seg Neutrophils # Seg Neutrophils # Man Lymphocytes # (Manual) Monocytes # (Manual) PT INR APTT Fibrinogen D-Dimer ABG pH 7.244 L POC ABG pCO2 POC ABG pO2 ABG pO2 ABG HCO3 ABG Base Excess -4.5 L ABG Hemoglobin 7.3 L ABG Oxyhemoglobin ABG Sodium ABG Potassium ABG Chloride ABG Glucose VBG pH Oxyhemoglobin Carboxyhemoglobin Sodium Potassium Chloride Carbon Dioxide BUN Creatinine Glucose POC Glucose Lactic Acid Calcium Ionized Calcium Magnesium AST ALT Alkaline Phosphatase Lactate Dehydrogenase NT-Pro-B Natriuret Pep Total Protein Albumin Arterial Blood Glucose Arterial Blood Ionized Calcium Urine WBC (Auto) Vancomycin Trough Phenytoin Crossmatch 10/04/20 10/04/20 10/04/20 03:53 10:00 10:00 WBC 14.6 H RBC 2.57 L Hgb 7.6 L Hct 22.5 L MCV MCH MCHC RDW 15.8 H Plt Count 38 L Lymph % (Auto) 7.7 L [place] % (Auto) Lymph # (Auto) 1.1 L [place] # (Auto) 0.9 H Baso # (Auto) Seg Neutrophils % 85.6 H Seg Neuts % (Manual) Lymphocytes % (Manual) Monocytes % (Manual) Nucleated RBC % Seg Neutrophils # 12.5 H Seg Neutrophils # Man Lymphocytes # (Manual) Monocytes # (Manual) PT INR APTT Fibrinogen D-Dimer ABG pH POC ABG pCO2 POC ABG pO2 110.6 H ABG pO2 ABG HCO3 ABG Base Excess ABG Hemoglobin 6.7 L ABG Oxyhemoglobin ABG Sodium 132.0 L ABG Potassium ABG Chloride ABG Glucose 111 H VBG pH Oxyhemoglobin Carboxyhemoglobin Sodium 134 L D Potassium Chloride 97.6 L Carbon Dioxide BUN Creatinine 1.7 H Glucose POC Glucose Lactic Acid Calcium 6.3 L Ionized Calcium Magnesium AST 203 H ALT 81 H Alkaline Phosphatase Lactate Dehydrogenase NT-Pro-B Natriuret Pep Total Protein 3.9 L Albumin 2.3 L Arterial Blood Glucose 111 H Arterial Blood Ionized Calcium 3.5 L Urine WBC (Auto) Vancomycin Trough Phenytoin Crossmatch 10/04/20 10/04/20 10/04/20 10:00 10:00 10:14 WBC RBC Hgb Hct MCV MCH MCHC RDW Plt Count Lymph % (Auto) [place] % (Auto) Lymph # (Auto) [place] # (Auto) Baso # (Auto) Seg Neutrophils % Seg Neuts % (Manual) Lymphocytes % (Manual) Monocytes % (Manual) Nucleated RBC % Seg Neutrophils # Seg Neutrophils # Man Lymphocytes # (Manual) Monocytes # (Manual) PT INR APTT Fibrinogen D-Dimer > 42756 H ABG pH POC ABG pCO2 POC ABG pO2 ABG pO2 ABG HCO3 ABG Base Excess ABG Hemoglobin ABG Oxyhemoglobin ABG Sodium ABG Potassium ABG Chloride ABG Glucose VBG pH Oxyhemoglobin Carboxyhemoglobin Sodium Potassium Chloride Carbon Dioxide BUN Creatinine Glucose POC Glucose Lactic Acid 3.90 H* Calcium Ionized Calcium Magnesium AST ALT Alkaline Phosphatase Lactate Dehydrogenase NT-Pro-B Natriuret Pep 2788 H Total Protein Albumin Arterial Blood Glucose Arterial Blood Ionized Calcium Urine WBC (Auto) Vancomycin Trough Phenytoin Crossmatch 10/04/20 10/04/20 10/04/20 14:00 14:00 18:00 WBC 15.7 H RBC 3.17 L Hgb 9.3 L 9.6 L Hct 27.2 L 28.0 L MCV MCH MCHC RDW 16.9 H Plt Count 41 L Lymph % (Auto) 8.6 L [place] % (Auto) Lymph # (Auto) [place] # (Auto) 0.9 H Baso # (Auto) Seg Neutrophils % 85.4 H Seg Neuts % (Manual) Lymphocytes % (Manual) Monocytes % (Manual) Nucleated RBC % Seg Neutrophils # 13.4 H Seg Neutrophils # Man Lymphocytes # (Manual) Monocytes # (Manual) PT INR APTT Fibrinogen D-Dimer ABG pH POC ABG pCO2 POC ABG pO2 ABG pO2 ABG HCO3 ABG Base Excess ABG Hemoglobin ABG Oxyhemoglobin ABG Sodium ABG Potassium ABG Chloride ABG Glucose VBG pH Oxyhemoglobin Carboxyhemoglobin Sodium 133 L Potassium Chloride 96.4 L Carbon Dioxide BUN 18 H Creatinine 1.7 H Glucose POC Glucose Lactic Acid Calcium 6.3 L Ionized Calcium Magnesium AST ALT Alkaline Phosphatase Lactate Dehydrogenase NT-Pro-B Natriuret Pep Total Protein Albumin Arterial Blood Glucose Arterial Blood Ionized Calcium Urine WBC (Auto) Vancomycin Trough Phenytoin Crossmatch 10/04/20 10/04/20 10/05/20 18:00 22:00 05:00 WBC 17.6 H RBC 3.34 L Hgb 9.9 L Hct 29.4 L MCV MCH MCHC RDW 17.1 H Plt Count 56 L Lymph % (Auto) 8.5 L [place] % (Auto) Lymph # (Auto) [place] # (Auto) 1.0 H Baso # (Auto) Seg Neutrophils % 85.1 H Seg Neuts % (Manual) Lymphocytes % (Manual) Monocytes % (Manual) Nucleated RBC % Seg Neutrophils # 15.0 H Seg Neutrophils # Man Lymphocytes # (Manual) Monocytes # (Manual) PT INR APTT Fibrinogen D-Dimer ABG pH POC ABG pCO2 POC ABG pO2 ABG pO2 ABG HCO3 ABG Base Excess ABG Hemoglobin ABG Oxyhemoglobin ABG Sodium ABG Potassium ABG Chloride ABG Glucose VBG pH Oxyhemoglobin Carboxyhemoglobin Sodium 136 L Potassium Chloride Carbon Dioxide BUN 18 H Creatinine 1.7 H Glucose POC Glucose Lactic Acid 2.30 H* Calcium 6.6 L Ionized Calcium Magnesium AST ALT Alkaline Phosphatase Lactate Dehydrogenase NT-Pro-B Natriuret Pep Total Protein Albumin Arterial Blood Glucose Arterial Blood Ionized Calcium Urine WBC (Auto) Vancomycin Trough Phenytoin Crossmatch 10/05/20 10/05/20 10/05/20 05:00 05:00 05:03 WBC RBC Hgb Hct MCV MCH MCHC RDW Plt Count Lymph % (Auto) [place] % (Auto) Lymph # (Auto) [place] # (Auto) Baso # (Auto) Seg Neutrophils % Seg Neuts % (Manual) Lymphocytes % (Manual) Monocytes % (Manual) Nucleated RBC % Seg Neutrophils # Seg Neutrophils # Man Lymphocytes # (Manual) Monocytes # (Manual) PT INR APTT Fibrinogen D-Dimer ABG pH 7.458 H POC ABG pCO2 POC ABG pO2 ABG pO2 74.3 L ABG HCO3 27.5 H ABG Base Excess 3.4 H ABG Hemoglobin 10.0 L ABG Oxyhemoglobin ABG Sodium ABG Potassium ABG Chloride ABG Glucose VBG pH Oxyhemoglobin 94.9 L Carboxyhemoglobin Sodium Potassium Chloride Carbon Dioxide BUN 19 H Creatinine 1.8 H Glucose POC Glucose Lactic Acid Calcium 6.8 L Ionized Calcium 3.9 L Magnesium AST 225 H ALT 85 H Alkaline Phosphatase Lactate Dehydrogenase NT-Pro-B Natriuret Pep Total Protein 4.5 L Albumin 2.7 L Arterial Blood Glucose Arterial Blood Ionized Calcium Urine WBC (Auto) Vancomycin Trough Phenytoin Crossmatch 10/05/20 10/05/20 10/05/20 10:10 15:00 19:40 WBC RBC Hgb Hct MCV MCH MCHC RDW Plt Count Lymph % (Auto) [place] % (Auto) Lymph # (Auto) [place] # (Auto) Baso # (Auto) Seg Neutrophils % Seg Neuts % (Manual) Lymphocytes % (Manual) Monocytes % (Manual) Nucleated RBC % Seg Neutrophils # Seg Neutrophils # Man Lymphocytes # (Manual) Monocytes # (Manual) PT INR APTT Fibrinogen D-Dimer ABG pH POC ABG pCO2 POC ABG pO2 ABG pO2 ABG HCO3 ABG Base Excess ABG Hemoglobin ABG Oxyhemoglobin ABG Sodium ABG Potassium ABG Chloride ABG Glucose VBG pH Oxyhemoglobin Carboxyhemoglobin Sodium Potassium 3.5 L Chloride Carbon Dioxide 31 H 32 H BUN 19 H 19 H Creatinine 1.8 H 1.8 H Glucose POC Glucose Lactic Acid Calcium 7.0 L 7.2 L Ionized Calcium Magnesium 2.90 H AST ALT Alkaline Phosphatase Lactate Dehydrogenase NT-Pro-B Natriuret Pep Total Protein Albumin Arterial Blood Glucose Arterial Blood Ionized Calcium Urine WBC (Auto) Vancomycin Trough Phenytoin Crossmatch 10/06/20 10/06/20 10/06/20 01:05 03:12 04:00 WBC 17.1 H RBC 3.47 L Hgb Hct MCV MCH MCHC RDW 17.4 H Plt Count 82 L Lymph % (Auto) 8.3 L [place] % (Auto) Lymph # (Auto) [place] # (Auto) 1.1 H Baso # (Auto) Seg Neutrophils % 83.8 H Seg Neuts % (Manual) Lymphocytes % (Manual) Monocytes % (Manual) Nucleated RBC % Seg Neutrophils # 14.3 H Seg Neutrophils # Man Lymphocytes # (Manual) Monocytes # (Manual) PT INR APTT Fibrinogen D-Dimer ABG pH 7.474 H POC ABG pCO2 POC ABG pO2 129.5 H ABG pO2 ABG HCO3 ABG Base Excess ABG Hemoglobin 11.4 L ABG Oxyhemoglobin ABG Sodium 131.8 L ABG Potassium ABG Chloride ABG Glucose 103 H VBG pH Oxyhemoglobin Carboxyhemoglobin 0.3 L Sodium Potassium Chloride Carbon Dioxide BUN Creatinine Glucose POC Glucose Lactic Acid Calcium Ionized Calcium Magnesium 3.70 H AST ALT Alkaline Phosphatase Lactate Dehydrogenase NT-Pro-B Natriuret Pep Total Protein Albumin Arterial Blood Glucose 103 H Arterial Blood Ionized Calcium 4.2 L Urine WBC (Auto) Vancomycin Trough Phenytoin Crossmatch 10/06/20 10/06/20 10/06/20 04:00 05:31 08:12 WBC RBC Hgb Hct MCV MCH MCHC RDW Plt Count Lymph % (Auto) [place] % (Auto) Lymph # (Auto) [place] # (Auto) Baso # (Auto) Seg Neutrophils % Seg Neuts % (Manual) Lymphocytes % (Manual) Monocytes % (Manual) Nucleated RBC % Seg Neutrophils # Seg Neutrophils # Man Lymphocytes # (Manual) Monocytes # (Manual) PT INR APTT Fibrinogen D-Dimer ABG pH POC ABG pCO2 POC ABG pO2 ABG pO2 ABG HCO3 ABG Base Excess ABG Hemoglobin ABG Oxyhemoglobin ABG Sodium ABG Potassium ABG Chloride ABG Glucose VBG pH Oxyhemoglobin Carboxyhemoglobin Sodium Potassium 3.5 L Chloride Carbon Dioxide BUN 19 H Creatinine 1.8 H Glucose 102 H POC Glucose 116 H Lactic Acid Calcium 7.2 L Ionized Calcium Magnesium 5.40 H AST 307 H ALT 137 H Alkaline Phosphatase Lactate Dehydrogenase NT-Pro-B Natriuret Pep Total Protein 4.5 L Albumin 2.6 L Arterial Blood Glucose Arterial Blood Ionized Calcium Urine WBC (Auto) Vancomycin Trough Phenytoin Crossmatch 10/06/20 10/06/20 10/06/20 11:00 11:50 20:13 WBC RBC Hgb Hct MCV MCH MCHC RDW Plt Count Lymph % (Auto) [place] % (Auto) Lymph # (Auto) [place] # (Auto) Baso # (Auto) Seg Neutrophils % Seg Neuts % (Manual) Lymphocytes % (Manual) Monocytes % (Manual) Nucleated RBC % Seg Neutrophils # Seg Neutrophils # Man Lymphocytes # (Manual) Monocytes # (Manual) PT INR APTT Fibrinogen D-Dimer ABG pH POC ABG pCO2 POC ABG pO2 ABG pO2 ABG HCO3 ABG Base Excess ABG Hemoglobin ABG Oxyhemoglobin ABG Sodium ABG Potassium ABG Chloride ABG Glucose VBG pH Oxyhemoglobin Carboxyhemoglobin Sodium Potassium Chloride Carbon Dioxide BUN Creatinine Glucose POC Glucose 106 H Lactic Acid Calcium Ionized Calcium Magnesium 6.50 H 6.20 H AST ALT Alkaline Phosphatase Lactate Dehydrogenase NT-Pro-B Natriuret Pep Total Protein Albumin Arterial Blood Glucose Arterial Blood Ionized Calcium Urine WBC (Auto) Vancomycin Trough Phenytoin Crossmatch 10/06/20 10/06/20 10/06/20 20:17 22:29 23:57 WBC RBC Hgb Hct MCV MCH MCHC RDW Plt Count Lymph % (Auto) [place] % (Auto) Lymph # (Auto) [place] # (Auto) Baso # (Auto) Seg Neutrophils % Seg Neuts % (Manual) Lymphocytes % (Manual) Monocytes % (Manual) Nucleated RBC % Seg Neutrophils # Seg Neutrophils # Man Lymphocytes # (Manual) Monocytes # (Manual) PT INR APTT Fibrinogen D-Dimer ABG pH POC ABG pCO2 POC ABG pO2 ABG pO2 ABG HCO3 ABG Base Excess ABG Hemoglobin ABG Oxyhemoglobin ABG Sodium ABG Potassium ABG Chloride ABG Glucose VBG pH Oxyhemoglobin Carboxyhemoglobin Sodium Potassium Chloride Carbon Dioxide BUN Creatinine Glucose POC Glucose 112 H 126 H 133 H Lactic Acid Calcium Ionized Calcium Magnesium AST ALT Alkaline Phosphatase Lactate Dehydrogenase NT-Pro-B Natriuret Pep Total Protein Albumin Arterial Blood Glucose Arterial Blood Ionized Calcium Urine WBC (Auto) Vancomycin Trough Phenytoin Crossmatch 10/07/20 10/07/20 10/07/20 00:35 02:22 03:16 WBC RBC Hgb Hct MCV MCH MCHC RDW Plt Count Lymph % (Auto) [place] % (Auto) Lymph # (Auto) [place] # (Auto) Baso # (Auto) Seg Neutrophils % Seg Neuts % (Manual) Lymphocytes % (Manual) Monocytes % (Manual) Nucleated RBC % Seg Neutrophils # Seg Neutrophils # Man Lymphocytes # (Manual) Monocytes # (Manual) PT INR APTT Fibrinogen D-Dimer ABG pH POC ABG pCO2 POC ABG pO2 ABG pO2 ABG HCO3 ABG Base Excess ABG Hemoglobin 11.6 L ABG Oxyhemoglobin ABG Sodium ABG Potassium ABG Chloride ABG Glucose 156 H VBG pH Oxyhemoglobin Carboxyhemoglobin 0.3 L Sodium Potassium Chloride Carbon Dioxide BUN Creatinine Glucose POC Glucose 124 H Lactic Acid Calcium Ionized Calcium Magnesium 5.90 H AST ALT Alkaline Phosphatase Lactate Dehydrogenase NT-Pro-B Natriuret Pep Total Protein Albumin Arterial Blood Glucose 156 H Arterial Blood Ionized Calcium 4.2 L Urine WBC (Auto) Vancomycin Trough Phenytoin Crossmatch 10/07/20 10/07/20 10/07/20 04:06 05:45 07:05 WBC 19.2 H RBC 3.57 L Hgb Hct MCV MCH MCHC 35 H RDW 17.1 H Plt Count 129 L Lymph % (Auto) [place] % (Auto) Lymph # (Auto) [place] # (Auto) Baso # (Auto) Seg Neutrophils % Seg Neuts % (Manual) 94.0 H Lymphocytes % (Manual) 6.0 L Monocytes % (Manual) Nucleated RBC % Seg Neutrophils # Seg Neutrophils # Man 18.0 H Lymphocytes # (Manual) Monocytes # (Manual) PT INR APTT Fibrinogen D-Dimer ABG pH POC ABG pCO2 POC ABG pO2 ABG pO2 ABG HCO3 ABG Base Excess ABG Hemoglobin ABG Oxyhemoglobin ABG Sodium ABG Potassium ABG Chloride ABG Glucose VBG pH Oxyhemoglobin Carboxyhemoglobin Sodium Potassium Chloride Carbon Dioxide BUN Creatinine Glucose POC Glucose 135 H 149 H Lactic Acid Calcium Ionized Calcium Magnesium AST ALT Alkaline Phosphatase Lactate Dehydrogenase NT-Pro-B Natriuret Pep Total Protein Albumin Arterial Blood Glucose Arterial Blood Ionized Calcium Urine WBC (Auto) Vancomycin Trough Phenytoin Crossmatch 10/07/20 10/07/20 10/07/20 07:05 07:05 12:21 WBC RBC Hgb Hct MCV MCH MCHC RDW Plt Count Lymph % (Auto) [place] % (Auto) Lymph # (Auto) [place] # (Auto) Baso # (Auto) Seg Neutrophils % Seg Neuts % (Manual) Lymphocytes % (Manual) Monocytes % (Manual) Nucleated RBC % Seg Neutrophils # Seg Neutrophils # Man Lymphocytes # (Manual) Monocytes # (Manual) PT INR APTT Fibrinogen D-Dimer ABG pH POC ABG pCO2 POC ABG pO2 ABG pO2 ABG HCO3 ABG Base Excess ABG Hemoglobin ABG Oxyhemoglobin ABG Sodium ABG Potassium ABG Chloride ABG Glucose VBG pH Oxyhemoglobin Carboxyhemoglobin Sodium Potassium Chloride Carbon Dioxide BUN 21 H Creatinine 1.7 H Glucose 171 H POC Glucose 124 H Lactic Acid Calcium 7.4 L Ionized Calcium Magnesium 6.10 H AST 245 H ALT 147 H Alkaline Phosphatase Lactate Dehydrogenase NT-Pro-B Natriuret Pep Total Protein 5.3 L Albumin 2.8 L Arterial Blood Glucose Arterial Blood Ionized Calcium Urine WBC (Auto) Vancomycin Trough Phenytoin Crossmatch 10/07/20 10/07/20 10/07/20 19:52 21:00 21:50 WBC RBC Hgb Hct MCV MCH MCHC RDW Plt Count Lymph % (Auto) [place] % (Auto) Lymph # (Auto) [place] # (Auto) Baso # (Auto) Seg Neutrophils % Seg Neuts % (Manual) Lymphocytes % (Manual) Monocytes % (Manual) Nucleated RBC % Seg Neutrophils # Seg Neutrophils # Man Lymphocytes # (Manual) Monocytes # (Manual) PT INR APTT Fibrinogen D-Dimer ABG pH POC ABG pCO2 POC ABG pO2 ABG pO2 ABG HCO3 ABG Base Excess ABG Hemoglobin ABG Oxyhemoglobin ABG Sodium ABG Potassium ABG Chloride ABG Glucose VBG pH Oxyhemoglobin Carboxyhemoglobin Sodium Potassium Chloride Carbon Dioxide BUN Creatinine Glucose POC Glucose 193 H 138 H Lactic Acid Calcium Ionized Calcium 4.4 L Magnesium AST ALT Alkaline Phosphatase Lactate Dehydrogenase NT-Pro-B Natriuret Pep Total Protein Albumin Arterial Blood Glucose Arterial Blood Ionized Calcium Urine WBC (Auto) Vancomycin Trough Phenytoin Crossmatch 10/07/20 10/08/20 10/08/20 23:41 04:20 05:30 WBC RBC Hgb Hct MCV MCH MCHC RDW Plt Count Lymph % (Auto) [place] % (Auto) Lymph # (Auto) [place] # (Auto) Baso # (Auto) Seg Neutrophils % Seg Neuts % (Manual) Lymphocytes % (Manual) Monocytes % (Manual) Nucleated RBC % Seg Neutrophils # Seg Neutrophils # Man Lymphocytes # (Manual) Monocytes # (Manual) PT INR APTT Fibrinogen D-Dimer ABG pH 7.467 H POC ABG pCO2 POC ABG pO2 189.8 H ABG pO2 ABG HCO3 ABG Base Excess ABG Hemoglobin 10.8 L ABG Oxyhemoglobin ABG Sodium ABG Potassium ABG Chloride ABG Glucose 133 H VBG pH Oxyhemoglobin Carboxyhemoglobin Sodium Potassium Chloride Carbon Dioxide BUN Creatinine Glucose POC Glucose 118 H 114 H Lactic Acid Calcium Ionized Calcium Magnesium AST ALT Alkaline Phosphatase Lactate Dehydrogenase NT-Pro-B Natriuret Pep Total Protein Albumin Arterial Blood Glucose 133 H Arterial Blood Ionized Calcium 4.2 L Urine WBC (Auto) Vancomycin Trough Phenytoin Crossmatch 10/08/20 10/08/20 10/08/20 05:43 06:42 06:42 WBC 23.6 H RBC 3.54 L Hgb Hct MCV MCH MCHC RDW 17.8 H Plt Count Lymph % (Auto) [place] % (Auto) Lymph # (Auto) [place] # (Auto) Baso # (Auto) Seg Neutrophils % Seg Neuts % (Manual) 93.0 H Lymphocytes % (Manual) 3.0 L Monocytes % (Manual) Nucleated RBC % 1.0 H Seg Neutrophils # Seg Neutrophils # Man 21.9 H Lymphocytes # (Manual) 0.7 L Monocytes # (Manual) 0.9 H PT INR APTT Fibrinogen D-Dimer ABG pH POC ABG pCO2 POC ABG pO2 ABG pO2 ABG HCO3 ABG Base Excess ABG Hemoglobin ABG Oxyhemoglobin ABG Sodium ABG Potassium ABG Chloride ABG Glucose VBG pH Oxyhemoglobin Carboxyhemoglobin Sodium Potassium Chloride Carbon Dioxide BUN 28 H Creatinine 1.6 H Glucose 141 H POC Glucose 126 H Lactic Acid Calcium 7.6 L Ionized Calcium Magnesium AST 162 H ALT 103 H Alkaline Phosphatase Lactate Dehydrogenase NT-Pro-B Natriuret Pep Total Protein 5.4 L Albumin 2.7 L Arterial Blood Glucose Arterial Blood Ionized Calcium Urine WBC (Auto) Vancomycin Trough Phenytoin Crossmatch 10/08/20 10/08/20 10/08/20 11:20 16:05 20:14 WBC RBC Hgb Hct MCV MCH MCHC RDW Plt Count Lymph % (Auto) [place] % (Auto) Lymph # (Auto) [place] # (Auto) Baso # (Auto) Seg Neutrophils % Seg Neuts % (Manual) Lymphocytes % (Manual) Monocytes % (Manual) Nucleated RBC % Seg Neutrophils # Seg Neutrophils # Man Lymphocytes # (Manual) Monocytes # (Manual) PT INR APTT Fibrinogen D-Dimer ABG pH POC ABG pCO2 POC ABG pO2 ABG pO2 ABG HCO3 ABG Base Excess ABG Hemoglobin ABG Oxyhemoglobin ABG Sodium ABG Potassium ABG Chloride ABG Glucose VBG pH Oxyhemoglobin Carboxyhemoglobin Sodium Potassium Chloride Carbon Dioxide BUN Creatinine Glucose POC Glucose 127 H 172 H 147 H Lactic Acid Calcium Ionized Calcium Magnesium AST ALT Alkaline Phosphatase Lactate Dehydrogenase NT-Pro-B Natriuret Pep Total Protein Albumin Arterial Blood Glucose Arterial Blood Ionized Calcium Urine WBC (Auto) Vancomycin Trough Phenytoin Crossmatch 10/08/20 10/08/20 10/09/20 21:27 23:24 02:10 WBC RBC Hgb Hct MCV MCH MCHC RDW Plt Count Lymph % (Auto) [place] % (Auto) Lymph # (Auto) [place] # (Auto) Baso # (Auto) Seg Neutrophils % Seg Neuts % (Manual) Lymphocytes % (Manual) Monocytes % (Manual) Nucleated RBC % Seg Neutrophils # Seg Neutrophils # Man Lymphocytes # (Manual) Monocytes # (Manual) PT INR APTT Fibrinogen D-Dimer ABG pH POC ABG pCO2 POC ABG pO2 ABG pO2 ABG HCO3 ABG Base Excess ABG Hemoglobin ABG Oxyhemoglobin ABG Sodium ABG Potassium ABG Chloride ABG Glucose VBG pH Oxyhemoglobin Carboxyhemoglobin Sodium Potassium Chloride Carbon Dioxide BUN Creatinine Glucose POC Glucose 140 H 135 H 111 H Lactic Acid Calcium Ionized Calcium Magnesium AST ALT Alkaline Phosphatase Lactate Dehydrogenase NT-Pro-B Natriuret Pep Total Protein Albumin Arterial Blood Glucose Arterial Blood Ionized Calcium Urine WBC (Auto) Vancomycin Trough Phenytoin Crossmatch 10/09/20 10/09/20 10/09/20 03:44 04:39 05:46 WBC 19.7 H RBC 3.51 L Hgb Hct MCV MCH MCHC RDW 17.7 H Plt Count Lymph % (Auto) [place] % (Auto) Lymph # (Auto) [place] # (Auto) Baso # (Auto) Seg Neutrophils % Seg Neuts % (Manual) 86.0 H Lymphocytes % (Manual) 4.0 L Monocytes % (Manual) 9.0 H Nucleated RBC % Seg Neutrophils # Seg Neutrophils # Man 16.9 H Lymphocytes # (Manual) 0.8 L Monocytes # (Manual) 1.8 H PT INR APTT Fibrinogen D-Dimer ABG pH 7.513 H POC ABG pCO2 POC ABG pO2 33.6 L ABG pO2 ABG HCO3 ABG Base Excess ABG Hemoglobin 11.1 L ABG Oxyhemoglobin 70.2 L ABG Sodium ABG Potassium 3.2 L ABG Chloride 108.0 H ABG Glucose 108 H VBG pH Oxyhemoglobin Carboxyhemoglobin Sodium Potassium Chloride Carbon Dioxide BUN Creatinine Glucose POC Glucose 109 H Lactic Acid Calcium Ionized Calcium Magnesium AST ALT Alkaline Phosphatase Lactate Dehydrogenase NT-Pro-B Natriuret Pep Total Protein Albumin Arterial Blood Glucose 108 H Arterial Blood Ionized Calcium 4.3 L Urine WBC (Auto) Vancomycin Trough Phenytoin Crossmatch 10/09/20 10/10/20 10/10/20 05:46 04:00 04:00 WBC 18.4 H RBC Hgb Hct MCV MCH MCHC RDW 17.5 H Plt Count Lymph % (Auto) 9.8 L [place] % (Auto) 8.8 H Lymph # (Auto) [place] # (Auto) 1.6 H Baso # (Auto) Seg Neutrophils % 80.0 H Seg Neuts % (Manual) Lymphocytes % (Manual) Monocytes % (Manual) Nucleated RBC % Seg Neutrophils # 14.7 H Seg Neutrophils # Man Lymphocytes # (Manual) Monocytes # (Manual) PT INR APTT Fibrinogen D-Dimer ABG pH POC ABG pCO2 POC ABG pO2 ABG pO2 ABG HCO3 ABG Base Excess ABG Hemoglobin ABG Oxyhemoglobin ABG Sodium ABG Potassium ABG Chloride ABG Glucose VBG pH Oxyhemoglobin Carboxyhemoglobin Sodium 146 H Potassium 3.2 L 2.9 L* Chloride 108.9 H 112.6 H Carbon Dioxide BUN 34 H 28 H Creatinine 1.4 H 1.3 H Glucose 109 H 101 H POC Glucose Lactic Acid Calcium 7.6 L 7.8 L Ionized Calcium Magnesium AST 137 H 122 H ALT 99 H 81 H Alkaline Phosphatase Lactate Dehydrogenase NT-Pro-B Natriuret Pep Total Protein 5.1 L 5.2 L Albumin 2.6 L 2.7 L Arterial Blood Glucose Arterial Blood Ionized Calcium Urine WBC (Auto) Vancomycin Trough Phenytoin Crossmatch 10/10/20 10/10/20 10/11/20 04:42 09:50 00:44 WBC RBC Hgb Hct MCV MCH MCHC RDW Plt Count Lymph % (Auto) [place] % (Auto) Lymph # (Auto) [place] # (Auto) Baso # (Auto) Seg Neutrophils % Seg Neuts % (Manual) Lymphocytes % (Manual) Monocytes % (Manual) Nucleated RBC % Seg Neutrophils # Seg Neutrophils # Man Lymphocytes # (Manual) Monocytes # (Manual) PT INR APTT Fibrinogen D-Dimer ABG pH 7.534 H POC ABG pCO2 POC ABG pO2 ABG pO2 95.2 H ABG HCO3 ABG Base Excess ABG Hemoglobin 11.3 L ABG Oxyhemoglobin ABG Sodium ABG Potassium ABG Chloride ABG Glucose VBG pH Oxyhemoglobin Carboxyhemoglobin Sodium Potassium Chloride Carbon Dioxide BUN Creatinine Glucose POC Glucose 109 H 106 H Lactic Acid Calcium Ionized Calcium Magnesium AST ALT Alkaline Phosphatase Lactate Dehydrogenase NT-Pro-B Natriuret Pep Total Protein Albumin Arterial Blood Glucose Arterial Blood Ionized Calcium Urine WBC (Auto) Vancomycin Trough Phenytoin Crossmatch 10/11/20 10/11/20 10/11/20 04:00 04:00 06:08 WBC 27.0 H RBC Hgb Hct MCV MCH MCHC RDW 17.7 H Plt Count Lymph % (Auto) 6.3 L [place] % (Auto) Lymph # (Auto) [place] # (Auto) 1.5 H Baso # (Auto) Seg Neutrophils % 87.1 H Seg Neuts % (Manual) Lymphocytes % (Manual) Monocytes % (Manual) Nucleated RBC % Seg Neutrophils # 23.5 H Seg Neutrophils # Man Lymphocytes # (Manual) Monocytes # (Manual) PT INR APTT Fibrinogen D-Dimer ABG pH POC ABG pCO2 POC ABG pO2 ABG pO2 ABG HCO3 ABG Base Excess ABG Hemoglobin ABG Oxyhemoglobin ABG Sodium ABG Potassium ABG Chloride ABG Glucose VBG pH Oxyhemoglobin Carboxyhemoglobin Sodium Potassium 3.2 L Chloride 110.4 H Carbon Dioxide 19 L BUN 22 H Creatinine Glucose 116 H POC Glucose 107 H Lactic Acid Calcium 7.7 L Ionized Calcium Magnesium 1.60 L AST ALT Alkaline Phosphatase Lactate Dehydrogenase NT-Pro-B Natriuret Pep Total Protein Albumin Arterial Blood Glucose Arterial Blood Ionized Calcium Urine WBC (Auto) Vancomycin Trough Phenytoin Crossmatch 10/11/20 10/11/20 10/12/20 11:41 13:26 03:52 WBC RBC Hgb Hct MCV MCH MCHC RDW Plt Count Lymph % (Auto) [place] % (Auto) Lymph # (Auto) [place] # (Auto) Baso # (Auto) Seg Neutrophils % Seg Neuts % (Manual) Lymphocytes % (Manual) Monocytes % (Manual) Nucleated RBC % Seg Neutrophils # Seg Neutrophils # Man Lymphocytes # (Manual) Monocytes # (Manual) PT INR APTT Fibrinogen D-Dimer ABG pH POC ABG pCO2 POC ABG pO2 ABG pO2 ABG HCO3 ABG Base Excess ABG Hemoglobin ABG Oxyhemoglobin ABG Sodium ABG Potassium ABG Chloride ABG Glucose VBG pH Oxyhemoglobin Carboxyhemoglobin Sodium Potassium Chloride Carbon Dioxide BUN Creatinine Glucose POC Glucose 116 H 114 H Lactic Acid Calcium Ionized Calcium Magnesium AST ALT Alkaline Phosphatase Lactate Dehydrogenase NT-Pro-B Natriuret Pep Total Protein Albumin Arterial Blood Glucose Arterial Blood Ionized Calcium Urine WBC (Auto) 24.0 H Vancomycin Trough Phenytoin Crossmatch 10/12/20 10/12/20 10/12/20 04:24 14:47 21:33 WBC RBC Hgb Hct MCV MCH MCHC RDW Plt Count Lymph % (Auto) [place] % (Auto) Lymph # (Auto) [place] # (Auto) Baso # (Auto) Seg Neutrophils % Seg Neuts % (Manual) Lymphocytes % (Manual) Monocytes % (Manual) Nucleated RBC % Seg Neutrophils # Seg Neutrophils # Man Lymphocytes # (Manual) Monocytes # (Manual) PT INR APTT Fibrinogen D-Dimer ABG pH POC ABG pCO2 POC ABG pO2 ABG pO2 ABG HCO3 ABG Base Excess ABG Hemoglobin ABG Oxyhemoglobin ABG Sodium ABG Potassium ABG Chloride ABG Glucose VBG pH Oxyhemoglobin Carboxyhemoglobin Sodium Potassium Chloride 109.9 H Carbon Dioxide 13 L BUN 18 H Creatinine Glucose 119 H POC Glucose 107 H Lactic Acid Calcium 7.6 L Ionized Calcium Magnesium 1.60 L AST ALT Alkaline Phosphatase Lactate Dehydrogenase NT-Pro-B Natriuret Pep Total Protein Albumin Arterial Blood Glucose Arterial Blood Ionized Calcium Urine WBC (Auto) Vancomycin Trough Phenytoin Crossmatch 10/12/20 10/12/20 10/13/20 Unknown Unknown 07:00 WBC 24.3 H RBC 3.38 L Hgb 9.8 L Hct MCV MCH MCHC RDW 18.7 H Plt Count Lymph % (Auto) [place] % (Auto) Lymph # (Auto) [place] # (Auto) Baso # (Auto) Seg Neutrophils % Seg Neuts % (Manual) 93.5 H Lymphocytes % (Manual) 4.5 L Monocytes % (Manual) Nucleated RBC % Seg Neutrophils # Seg Neutrophils # Man 22.7 H Lymphocytes # (Manual) 1.1 L Monocytes # (Manual) PT INR APTT Fibrinogen D-Dimer ABG pH POC ABG pCO2 POC ABG pO2 ABG pO2 ABG HCO3 ABG Base Excess ABG Hemoglobin ABG Oxyhemoglobin ABG Sodium ABG Potassium ABG Chloride ABG Glucose VBG pH Oxyhemoglobin Carboxyhemoglobin Sodium 135 L D Potassium 3.1 L Chloride Carbon Dioxide 17 L BUN Creatinine Glucose 510 H* POC Glucose Lactic Acid Calcium 7.2 L Ionized Calcium Magnesium AST ALT Alkaline Phosphatase Lactate Dehydrogenase NT-Pro-B Natriuret Pep Total Protein Albumin Arterial Blood Glucose Arterial Blood Ionized Calcium Urine WBC (Auto) Vancomycin Trough Phenytoin 5.7 L Crossmatch 10/13/20 10/13/20 10/13/20 07:00 07:00 07:18 WBC 23.6 H RBC 3.26 L Hgb 9.4 L Hct 28.7 L MCV MCH MCHC RDW 18.3 H Plt Count Lymph % (Auto) [place] % (Auto) Lymph # (Auto) [place] # (Auto) Baso # (Auto) Seg Neutrophils % Seg Neuts % (Manual) Lymphocytes % (Manual) Monocytes % (Manual) Nucleated RBC % Seg Neutrophils # Seg Neutrophils # Man Lymphocytes # (Manual) Monocytes # (Manual) PT INR APTT Fibrinogen D-Dimer ABG pH 7.473 H POC ABG pCO2 20.7 L POC ABG pO2 137.9 H ABG pO2 ABG HCO3 ABG Base Excess ABG Hemoglobin 11.2 L ABG Oxyhemoglobin 98.3 H ABG Sodium 135.9 L ABG Potassium ABG Chloride 111.0 H ABG Glucose 109 H VBG pH Oxyhemoglobin Carboxyhemoglobin 0.3 L Sodium 135 L Potassium 3.5 L Chloride 109.1 H Carbon Dioxide 18 L BUN Creatinine Glucose POC Glucose Lactic Acid Calcium 7.3 L Ionized Calcium Magnesium 1.60 L AST ALT Alkaline Phosphatase Lactate Dehydrogenase NT-Pro-B Natriuret Pep Total Protein Albumin Arterial Blood Glucose 109 H Arterial Blood Ionized Calcium Urine WBC (Auto) Vancomycin Trough Phenytoin Crossmatch 10/14/20 10/14/20 10/15/20 04:00 04:00 05:50 WBC 28.6 H 23.2 H RBC 3.61 L 3.43 L Hgb 9.9 L Hct 30.0 L MCV MCH MCHC RDW 18.3 H 18.2 H Plt Count Lymph % (Auto) [place] % (Auto) Lymph # (Auto) [place] # (Auto) Baso # (Auto) Seg Neutrophils % Seg Neuts % (Manual) 88.0 H 90.0 H Lymphocytes % (Manual) 5.0 L 4.0 L Monocytes % (Manual) Nucleated RBC % Seg Neutrophils # Seg Neutrophils # Man 25.2 H 20.9 H Lymphocytes # (Manual) 0.9 L Monocytes # (Manual) 1.4 H 0.9 H PT INR APTT Fibrinogen D-Dimer ABG pH POC ABG pCO2 POC ABG pO2 ABG pO2 ABG HCO3 ABG Base Excess ABG Hemoglobin ABG Oxyhemoglobin ABG Sodium ABG Potassium ABG Chloride ABG Glucose VBG pH Oxyhemoglobin Carboxyhemoglobin Sodium Potassium Chloride 109.9 H Carbon Dioxide 17 L BUN Creatinine Glucose POC Glucose Lactic Acid Calcium Ionized Calcium Magnesium AST ALT Alkaline Phosphatase Lactate Dehydrogenase NT-Pro-B Natriuret Pep Total Protein Albumin Arterial Blood Glucose Arterial Blood Ionized Calcium Urine WBC (Auto) Vancomycin Trough Phenytoin Crossmatch 10/15/20 10/16/20 10/17/20 05:50 11:57 04:57 WBC 15.2 H RBC 3.43 L Hgb Hct MCV MCH MCHC RDW 18.1 H Plt Count Lymph % (Auto) [place] % (Auto) Lymph # (Auto) [place] # (Auto) Baso # (Auto) Seg Neutrophils % Seg Neuts % (Manual) Lymphocytes % (Manual) Monocytes % (Manual) Nucleated RBC % Seg Neutrophils # Seg Neutrophils # Man Lymphocytes # (Manual) Monocytes # (Manual) PT INR APTT Fibrinogen D-Dimer ABG pH POC ABG pCO2 POC ABG pO2 ABG pO2 ABG HCO3 ABG Base Excess ABG Hemoglobin ABG Oxyhemoglobin ABG Sodium ABG Potassium ABG Chloride ABG Glucose VBG pH Oxyhemoglobin Carboxyhemoglobin Sodium Potassium Chloride 110.3 H Carbon Dioxide 18 L BUN Creatinine Glucose 105 H POC Glucose 111 H Lactic Acid Calcium 8.3 L Ionized Calcium Magnesium AST ALT Alkaline Phosphatase Lactate Dehydrogenase NT-Pro-B Natriuret Pep Total Protein Albumin Arterial Blood Glucose Arterial Blood Ionized Calcium Urine WBC (Auto) Vancomycin Trough Phenytoin Crossmatch 10/17/20 10/17/20 10/18/20 05:25 21:16 01:31 WBC RBC Hgb Hct MCV MCH MCHC RDW Plt Count Lymph % (Auto) [place] % (Auto) Lymph # (Auto) [place] # (Auto) Baso # (Auto) Seg Neutrophils % Seg Neuts % (Manual) Lymphocytes % (Manual) Monocytes % (Manual) Nucleated RBC % Seg Neutrophils # Seg Neutrophils # Man Lymphocytes # (Manual) Monocytes # (Manual) PT INR APTT Fibrinogen D-Dimer ABG pH POC ABG pCO2 POC ABG pO2 ABG pO2 ABG HCO3 ABG Base Excess ABG Hemoglobin ABG Oxyhemoglobin ABG Sodium ABG Potassium ABG Chloride ABG Glucose VBG pH Oxyhemoglobin Carboxyhemoglobin Sodium Potassium Chloride Carbon Dioxide BUN Creatinine Glucose POC Glucose 107 H 106 H 119 H Lactic Acid Calcium Ionized Calcium Magnesium AST ALT Alkaline Phosphatase Lactate Dehydrogenase NT-Pro-B Natriuret Pep Total Protein Albumin Arterial Blood Glucose Arterial Blood Ionized Calcium Urine WBC (Auto) Vancomycin Trough Phenytoin Crossmatch 10/18/20 10/18/20 10/19/20 05:45 11:23 01:14 WBC RBC Hgb Hct MCV MCH MCHC RDW Plt Count Lymph % (Auto) [place] % (Auto) Lymph # (Auto) [place] # (Auto) Baso # (Auto) Seg Neutrophils % Seg Neuts % (Manual) Lymphocytes % (Manual) Monocytes % (Manual) Nucleated RBC % Seg Neutrophils # Seg Neutrophils # Man Lymphocytes # (Manual) Monocytes # (Manual) PT INR APTT Fibrinogen D-Dimer ABG pH POC ABG pCO2 POC ABG pO2 ABG pO2 ABG HCO3 ABG Base Excess ABG Hemoglobin ABG Oxyhemoglobin ABG Sodium ABG Potassium ABG Chloride ABG Glucose VBG pH Oxyhemoglobin Carboxyhemoglobin Sodium Potassium Chloride Carbon Dioxide BUN Creatinine Glucose POC Glucose 106 H 115 H 108 H Lactic Acid Calcium Ionized Calcium Magnesium AST ALT Alkaline Phosphatase Lactate Dehydrogenase NT-Pro-B Natriuret Pep Total Protein Albumin Arterial Blood Glucose Arterial Blood Ionized Calcium Urine WBC (Auto) Vancomycin Trough Phenytoin Crossmatch 10/19/20 10/20/20 10/20/20 09:57 05:40 07:59 WBC RBC Hgb Hct MCV MCH MCHC RDW Plt Count Lymph % (Auto) [place] % (Auto) Lymph # (Auto) [place] # (Auto) Baso # (Auto) Seg Neutrophils % Seg Neuts % (Manual) Lymphocytes % (Manual) Monocytes % (Manual) Nucleated RBC % Seg Neutrophils # Seg Neutrophils # Man Lymphocytes # (Manual) Monocytes # (Manual) PT INR APTT Fibrinogen D-Dimer ABG pH POC ABG pCO2 POC ABG pO2 ABG pO2 ABG HCO3 ABG Base Excess ABG Hemoglobin ABG Oxyhemoglobin ABG Sodium ABG Potassium ABG Chloride ABG Glucose VBG pH Oxyhemoglobin Carboxyhemoglobin Sodium Potassium Chloride Carbon Dioxide BUN Creatinine Glucose 106 H POC Glucose 122 H 109 H Lactic Acid Calcium Ionized Calcium Magnesium AST ALT Alkaline Phosphatase Lactate Dehydrogenase NT-Pro-B Natriuret Pep Total Protein Albumin Arterial Blood Glucose Arterial Blood Ionized Calcium Urine WBC (Auto) Vancomycin Trough Phenytoin Crossmatch 10/20/20 10/20/20 16:52 16:52 WBC 18.8 H RBC Hgb Hct MCV MCH MCHC RDW 17.7 H Plt Count 547 H Lymph % (Auto) 11.2 L [place] % (Auto) 8.1 H Lymph # (Auto) [place] # (Auto) 1.5 H Baso # (Auto) 0.2 H Seg Neutrophils % 78.8 H Seg Neuts % (Manual) Lymphocytes % (Manual) Monocytes % (Manual) Nucleated RBC % Seg Neutrophils # 14.8 H Seg Neutrophils # Man Lymphocytes # (Manual) Monocytes # (Manual) PT INR APTT Fibrinogen D-Dimer ABG pH POC ABG pCO2 POC ABG pO2 ABG pO2 ABG HCO3 ABG Base Excess ABG Hemoglobin ABG Oxyhemoglobin ABG Sodium ABG Potassium ABG Chloride ABG Glucose VBG pH Oxyhemoglobin Carboxyhemoglobin Sodium Potassium Chloride Carbon Dioxide BUN Creatinine Glucose POC Glucose Lactic Acid Calcium Ionized Calcium Magnesium AST ALT Alkaline Phosphatase Lactate Dehydrogenase NT-Pro-B Natriuret Pep Total Protein Albumin Arterial Blood Glucose Arterial Blood Ionized Calcium Urine WBC (Auto) Vancomycin Trough 34.5 H Phenytoin Crossmatch
[2020-10-21] MEDS: CEFEPIME/NS 2 GM/100 ML 2 GM/100 ML BAG IV SCH (11:36)
[2020-10-21] MEDS: FAMOTIDINE 20 MG TAB PO SCH ×2 (11:40→21:34)
[2020-10-21] MEDS: GLYCOPYRROLATE 1 MG TAB PO SCH ×2 (11:41→21:34)
[2020-10-21] MEDS: FUROSEMIDE 40 MG TAB PO SCH (11:42)
[2020-10-21] MEDS: TOPIRAMATE TAB 25 MG TAB PO SCH ×2 (11:42→21:34)
--- NOTE | 2020-10-21 13:27 | Progress Note ---
Assessment and Plan A: POD#19 s/p repeat section at 36wks secondary to Eclampsia and Cardiac Arrest with Resuscitation POD#19 s/p supracervical abdominal hysterectomy secondary to Uterine A[place]y, Hemorrhage and Disseminated Intravascular Coagulation (DIC) s/p multiple transfusions of blood products Right Upper Extremity superficial and deep vein thrombosis on Lovenox Trach and PEG placement today Acute Kidney Injury, nonoligouric Transaminitis -Status post cardiac arrest 10/07/2020 requiring reintubation. -Shock, DIC: Secondary to hemorrhage-stable -Sepsis: followed by ID, abx/imaging recommendations noted -Acute kidney injury: resolved, labs stable -Acute respiratory failure: remains on the vent, now with trach, plan to wean -Preeclampsia: s/p Magnesium P: Continue supportive care as recommended by Pulmonology/Critical Care, Internal Medicine, Infectious Disease, Nephrology and Hematology-Oncology Await long-term care plan as discussed with the family Subjective - Subjective Principal diagnosis: Eclampsia/HELLP Syndrome, ADOLPH, DIC; s/p , s/p supracervical hyst Interval history: 30y/o POD #19 s/p supracervical hysterectomy for eclampsia and DIC. VSS reviewed. Abx managed per ID. Still unresponsive to commands. Trach and PEG tube placed today. Objective - Vital Signs Latest vital signs: Vital Signs Temp Pulse Pulse Pulse Resp Resp BP 10/21/20 12:21 89 136/100 10/21/20 10:00 89 14 136/100 10/21/20 09:45 90 16 149/96 10/21/20 09:30 92 H 12 149/96 10/21/20 09:16 96 H 24 10/21/20 09:15 99 H 21 127/80 10/21/20 09:14 107 H 145/68 10/21/20 09:05 10/21/20 09:01 99 H 29 H 149/80 10/21/20 08:59 93 H 12 153/72 10/21/20 07:15 104 H 22 127/80 10/21/20 07:00 100 H 20 131/74 10/21/20 06:45 102 H 21 131/74 10/21/20 06:30 111 H 13 131/74 10/21/20 06:15 109 H 17 145/68 10/21/20 06:00 107 H 21 145/68 10/21/20 05:45 93 H 19 145/80 10/21/20 05:30 111 H 19 145/80 10/21/20 05:26 108 H 130/71 10/21/20 05:15 101 H 14 130/71 10/21/20 05:00 93 H 20 130/71 10/21/20 04:45 103 H 19 119/75 10/21/20 04:30 91 H 17 119/75 10/21/20 04:15 99 H 22 128/76 10/21/20 04:00 99.2 F 103 H 107 H 21 128/76 10/21/20 03:45 91 H 16 132/81 10/21/20 03:30 105 H 20 132/81 10/21/20 03:15 104 H 22 128/77 10/21/20 03:00 103 H 18 128/77 10/21/20 02:45 96 H 21 113/64 10/21/20 02:30 100 H 22 113/64 10/21/20 02:15 95 H 16 122/81 10/21/20 02:00 104 H 18 122/81 10/21/20 01:45 102 H 15 115/73 10/21/20 01:30 105 H 16 115/73 10/21/20 01:15 104 H 18 107/59 10/21/20 01:00 103 H 19 116/73 10/21/20 00:45 100 H 16 107/59 10/21/20 00:30 99 H 18 107/59 10/21/20 00:21 102 H 26 H 10/21/20 00:19 96 H 100/62 10/21/20 00:15 99 H 20 100/62 10/21/20 00:00 99.8 F H 97 H 97 H 18 100/62 10/20/20 23:45 96 H 16 107/65 10/20/20 23:30 97 H 18 107/65 10/20/20 23:15 97 H 17 103/68 10/20/20 23:03 97 H 17 103/68 10/20/20 23:00 97 H 16 103/68 10/20/20 22:50 99 H 105/64 10/20/20 22:45 99 H 17 105/64 10/20/20 22:30 95 H 18 106/61 10/20/20 22:15 98 H 20 117/60 10/20/20 22:00 97 H 13 115/66 10/20/20 21:46 96 H 22 117/60 10/20/20 21:30 92 H 14 117/60 10/20/20 21:15 94 H 25 H 133/52 10/20/20 21:00 97 H 26 H 133/52 10/20/20 20:45 107 H 20 126/80 10/20/20 20:42 108 H 126/80 10/20/20 20:30 108 H 24 126/80 10/20/20 20:15 108 H 30 H 122/80 10/20/20 20:08 106 H 122/80 10/20/20 20:01 108 H 17 141/84 10/20/20 20:00 98.6 F 108 H 108 H 17 10/20/20 19:45 107 H 25 H 141/84 10/20/20 19:31 108 H 18 141/84 10/20/20 19:15 110 H 22 141/84 10/20/20 19:01 109 H 31 H 141/84 10/20/20 18:45 105 H 39 H 141/84 10/20/20 18:30 103 H 39 H 141/84 10/20/20 18:15 96 H 19 135/80 10/20/20 18:00 99 H 18 135/80 10/20/20 17:45 94 H 21 125/76 10/20/20 17:30 98 H 22 125/76 10/20/20 17:15 99 H 16 125/80 10/20/20 17:00 98 H 18 125/80 10/20/20 16:45 100 H 19 131/74 10/20/20 16:30 98 H 34 H 131/74 10/20/20 16:15 100 H 21 127/73 10/20/20 16:00 98.5 F 100 H 99 H 25 H 127/73 10/20/20 15:45 99 H 17 116/63 10/20/20 15:42 100 H 26 H 10/20/20 15:40 92 H 116/63 10/20/20 15:30 92 H 18 116/63 10/20/20 15:15 93 H 29 H 114/70 10/20/20 15:00 114/70 10/20/20 14:45 123/73 10/20/20 14:30 119/61 10/20/20 14:15 95 H 26 H 123/73 10/20/20 14:00 99 H 18 152/83 10/20/20 13:45 108 H 26 H 152/83 10/20/20 13:44 108 H 152/83 10/20/20 13:31 108 H 28 H 152/83 Pulse Ox 10/21/20 12:21 98 10/21/20 10:00 98 10/21/20 09:45 99 10/21/20 09:30 96 10/21/20 09:16 10/21/20 09:15 97 10/21/20 09:14 95 10/21/20 09:05 99 10/21/20 09:01 96 10/21/20 08:59 100 10/21/20 07:15 99 10/21/20 07:00 99 10/21/20 06:45 98 10/21/20 06:30 94 10/21/20 06:15 100 10/21/20 06:00 95 10/21/20 05:45 100 10/21/20 05:30 97 10/21/20 05:26 10/21/20 05:15 100 10/21/20 05:00 97 10/21/20 04:45 100 10/21/20 04:30 99 10/21/20 04:15 100 10/21/20 04:00 97 10/21/20 03:45 100 10/21/20 03:30 96 10/21/20 03:15 100 10/21/20 03:00 96 10/21/20 02:45 100 10/21/20 02:30 98 10/21/20 02:15 100 10/21/20 02:00 97 10/21/20 01:45 100 10/21/20 01:30 99 10/21/20 01:15 100 10/21/20 01:00 98 10/21/20 00:45 100 10/21/20 00:30 98 10/21/20 00:21 10/21/20 00:19 100 10/21/20 00:15 99 10/21/20 00:00 97 10/20/20 23:45 100 10/20/20 23:30 97 10/20/20 23:15 99 10/20/20 23:03 99 10/20/20 23:00 96 10/20/20 22:50 10/20/20 22:45 99 10/20/20 22:30 97 10/20/20 22:15 99 10/20/20 22:00 96 10/20/20 21:46 100 10/20/20 21:30 98 10/20/20 21:15 100 10/20/20 21:00 96 10/20/20 20:45 100 10/20/20 20:42 10/20/20 20:30 98 10/20/20 20:15 100 10/20/20 20:08 100 10/20/20 20:01 100 10/20/20 20:00 100 10/20/20 19:45 99 10/20/20 19:31 100 10/20/20 19:15 99 10/20/20 19:01 100 10/20/20 18:45 99 10/20/20 18:30 96 10/20/20 18:15 99 10/20/20 18:00 96 10/20/20 17:45 100 10/20/20 17:30 95 10/20/20 17:15 99 10/20/20 17:00 96 10/20/20 16:45 99 10/20/20 16:30 95 10/20/20 16:15 99 10/20/20 16:00 95 10/20/20 15:45 99 10/20/20 15:42 10/20/20 15:40 96 10/20/20 15:30 96 10/20/20 15:15 99 10/20/20 15:00 93 10/20/20 14:45 98 10/20/20 14:30 95 10/20/20 14:15 99 10/20/20 14:00 99 10/20/20 13:45 100 10/20/20 13:44 10/20/20 13:31 97 Intake and Output 10/20/20 10/21/20 10/21/20 22:59 06:59 14:59 Intake Total 1255 1165 10 Output Total 700 1000 Balance 555 165 10 Intake: IV 535 1100 10 CEFEPIME/NS 2 GM/100 ML 2 100 gm In 100 ml @ 200 mls/ hr IV Q12HR ERINN Rx#: [id number] D10w 1,000 ml @ 75 mls/hr 1000 IV DIRECT ERINN Rx#: [id number] Left Forearm 10 Vancomycin 1,750 mg In 535 NaCl 0.9% 500 ml 500 ml @ 333.333 mls/hr IV Q12H ERINN Rx#:[id number] Intake, Free Water 200 Tube Feeding 520 65 Output: Urine 700 1000 Indwelling Catheter 700 1000 Other: Total, Intake Amount 65 0 Total, Output Amount 700 1000 Voiding Method Indwelling Catheter Indwelling Catheter Indwelling Catheter Weight 118.3 kg - Exam Narrative Exam: Constitutional: awake, intubated, on the vent Head, Ears, Nose: Normocephalic, atraumatic. Neck: intubated/Trach in place Cardiovascular: RR GI: Soft, bowel sounds +. lower abdominal incision present c/d/i Musculoskeletal: edematous extremities, no cyanosis. Skin: No rash or abscess Psych: no agitation Neurological: awake, doesn't follow commands, but opens eyes, intubated, on the vent, exam limited - Labs Labs: Abnormal lab results 10/20/20 10/20/20 Range/Units 16:52 16:52 WBC 18.8 H (4.5-11.0) K/mm3 RDW 17.7 H (13.2-15.2) % Plt Count 547 H (140-440) K/mm3 Lymph % (Auto) 11.2 L (13.4-35.0) % [place] % (Auto) 8.1 H (0.0-7.3) % [place] # (Auto) 1.5 H (0.0-0.8) K/mm3 Baso # (Auto) 0.2 H (0.0-0.1) K/mm3 Seg Neutrophils % 78.8 H (40.0-70.0) % Seg Neutrophils # 14.8 H (1.8-7.7) K/mm3 Vancomycin Trough 34.5 H (5.0-20.0) ug/mL
[2020-10-21 14:35] LABS: Hematocrit 32.9 % (30.3-42.9); Hemoglobin 10.8 gm/dl (10.1-14.3); Mean Corpuscular HGB Conc 33 % (30-34); Mean Corpuscular Volume 89 fl (79-97); Platelet Count 544 K/mm3 (140-440); Red Blood Count 3.71 M/mm3 (3.65-5.03); Red Cell Distribution Width 17.8 % (13.2-15.2)
[2020-10-21 14:42] LABS: Blood Urea Nitrogen 15 mg/dL (7-17); Calcium 9.5 mg/dL (8.4-10.2); Hemolysis Index 28; INR 1.06 (0.87-1.13)
[2020-10-21 14:46] LABS: BUN/Creatinine Ratio 25
--- NOTE | 2020-10-21 18:54 | Progress Note ---
Assessment and Plan Cultures: 10/05/2020 Blood culture: no growth 10/11/2020 blood culture: No growth 10/11/2020 tracheal aspirate: Usual respiratory jaylan 10/14/2020 blood culture: Enterobacter, coag negative staph 10/15/2020 blood culture: Pending A/P: 30-year-old female with GERD, hypertension, seizure disorder was admitted to the hospital at 36 weeks with seizures. She became hypoxic and pulseless requiring CPR. Following emergent section, patient developed postpartu m hemorrhage, DIC. She has been admitted to ICU, remains on the vent: #Persistent fever, sepsis is likely secondary to bacteremia: ?PICC, no acute intra-abdominal source noted on CT #Status post arrest 10/07/2020: Apparently had a brief code due to ?ET tube clot/plugging. #Initial shock, DIC/persistent fever: Secondary to hemorrhage, ?possible sepsis. Possible pneumonia versus fluid overload. ?Central fever v/s from VTE. Noted diarrhea ? Cdiff #Acute kidney injury: resolved #Acute respiratory failure: remains on the vent. #Transaminitis: ?HELLP. Improving. #Preeclampsia # hemorrhage: Status post , status post supracervical hyste rectomy. #Encephalopathy post cardiac arrest: Neurology on board. #C. difficile: On oral vancomycin Recs: -ICU requested new PICC line to be placed while patient ongoing bacteremia. It will have to be replaced after blood cultures are cleared and patient stabilized. -Follow-up JOSHUA of blood cultures -Cefepime should be effective against Enterobacter, however she remains with an elevated white count. Stop cefepime, start meropenem in case of ESBL. Can de-escalate back if cultures return with no ESBL -Completed p.o. Vanco -We will get CT abdomen pelvis given Enterobacter which is enteric pathogen to rule out any source control issues. Julee Oneill MD [facility] ([facility] O: [phone] F: [phone] Subjective Date of service: 10/21/20 Principal diagnosis: Eclampsia/HELLP Syndrome, ADOLPH, DIC; s/p , s/p supracervical hyst Interval history: Afebrile, white count 17. Blood cultures with Enterobacter cloacae and coag negative staph Imaging personally reviewed: Chest x-ray: Clear lungs, midline tracheostomy tube. Objective - Exam Narrative Exam: Constitutional: awake, intubated, on the vent Head, Ears, Nose: Normocephalic, atraumatic. Eyes: Conjunctivae/corneas clear. No icterus.. Neck: intubated Oral: intubated Cardiovascular: S1, S2 + Respiratory: AE fair bilaterally and equal GI: Soft, bowel sounds +. lower abdominal incision present with dressing Musculoskeletal: edematous extremities, no cyanosis. Skin: No rash or abscess Hem/Lymphatic: No palpable cervical or supraclavicular nodes. No lymphangitis Psych: no agitation Neurological: awake, doesn't follow commands, but opens eyes, intubated, on the vent, exam limited - Constitutional Vitals: Vital Signs Temp Pulse Resp BP Pulse Ox 99.2 F 93 H 19 145/80 99 10/21/20 16:00 10/21/20 17:15 10/21/20 17:15 10/21/20 17:15 10/21/20 17:15 Temperature -Last 24 Hours Temperature 99.2 F Temperature 99 F Temperature 98.2 F Temperature 99.2 F Temperature 99.8 F Temperature 98.6 F - Labs CBC & Chem 7: 10/21/20 13:54 10/21/20 13:54 Labs: Abnormal lab results 10/21/20 10/21/20 Range/Units 13:54 13:54 WBC 17.0 H (4.5-11.0) K/mm3 RDW 17.8 H (13.2-15.2) % Plt Count 544 H (140-440) K/mm3 Sodium 136 L (137-145) mmol/L Glucose 120 H (65-100) mg/dL
[2020-10-21] MEDS: MEROPENEM/NS 1 GRAM/100 ML 1 GRAM/100 ML BAG IV SCH (21:54)
[2020-10-22] MEDS: IPRATROPIUM/ALBUTEROL SULFATE 3 ML AMPUL.NEB IH SCH ×3 (01:10→15:52)
[2020-10-22] MEDS: VANCOMYCIN 1,750 MG in SODIUM CHLORIDE 0.9% 500 ML 500 ML IV SCH (01:38)
[2020-10-22] MEDS: hydrALAZINE 25 MG TAB PO SCH ×3 (05:53→22:50)
--- NOTE | 2020-10-22 07:36 | Progress Note ---
Assessment and Plan - Patient Problems (1) Acute respiratory failure with hypoxia Current Visit: Yes Status: Acute Plan to address problem: patient will likely require termite helper care facility placement of PEG tube and tracheostomy without incident continued treatment of upper extremity DVT (2) Cardiac arrest Current Visit: Yes Status: Acute (3) DIC (disseminated intravascular coagulation) Current Visit: Yes Status: Acute (4) Encephalopathy Current Visit: Yes Status: Acute Subjective - Subjective Date of service: 10/22/20 Principal diagnosis: Eclampsia/HELLP Syndrome, ADOLPH, DIC; s/p , s/p supracervical hyst Interval history: 30y/o POD #20 s/p supracervical hysterectomy for eclampsia and DIC. Patient remains unresponsive. Patient is s/p placement of PEG tube and tracheostomy. Gradual improvement in leukocytosis and temp spikes. Undergoing treatment for C. diff. Objective - Vital Signs Latest vital signs: Vital Signs Temp Pulse Pulse Pulse Resp Resp BP 10/22/20 06:00 102 H 15 136/73 10/22/20 05:53 102 H 118/77 10/22/20 05:00 100 H 20 121/75 10/22/20 04:00 98.8 F 117 H 114 H 38 H 145/80 10/22/20 03:00 105 H 23 128/73 10/22/20 02:46 102 H 25 H 122/68 10/22/20 02:30 97 H 22 122/68 10/22/20 02:16 103 H 16 132/88 10/22/20 02:00 109 H 23 132/88 10/22/20 01:46 102 H 23 127/68 10/22/20 01:30 106 H 22 127/68 10/22/20 01:16 109 H 29 H 138/68 10/22/20 01:00 100 H 18 138/68 10/22/20 00:46 106 H 25 H 117/62 10/22/20 00:30 101 H 16 117/62 10/22/20 00:18 95 H 22 10/22/20 00:16 96 H 17 123/58 10/22/20 00:02 99 H 22 123/58 10/22/20 00:00 99.9 F H 93 H 106 H 19 23 123/58 10/21/20 23:46 95 H 24 133/70 01/06/21 23:30 103 H 15 133/70 10/21/20 23:16 99 H 24 121/64 10/21/20 23:00 100 H 19 121/64 10/21/20 22:46 93 H 23 104/53 10/21/20 22:30 95 H 22 122/49 10/21/20 22:16 99 H 29 H 122/49 10/21/20 22:00 99 H 30 H 150/85 10/21/20 21:46 97 H 24 150/85 10/21/20 21:34 98 H 150/85 10/21/20 21:30 98 H 27 H 150/85 10/21/20 21:16 111 H 17 142/76 10/21/20 21:15 94 H 30 H 10/21/20 21:13 112 H 142/76 10/21/20 21:00 105 H 17 142/76 10/21/20 20:46 109 H 13 138/78 10/21/20 20:30 99 H 26 H 132/70 10/21/20 20:20 98 H 10/21/20 20:16 98 H 20 138/78 10/21/20 20:00 99.4 F 105 H 19 138/78 10/21/20 19:46 107 H 22 144/77 10/21/20 19:30 102 H 21 144/77 10/21/20 19:16 107 H 15 137/79 10/21/20 19:00 101 H 18 141/79 10/21/20 18:49 103 H 23 10/21/20 18:30 102 H 18 137/79 10/21/20 18:15 100 H 17 135/73 10/21/20 18:00 99 H 19 135/73 10/21/20 17:45 94 H 17 131/67 10/21/20 17:30 91 H 25 H 131/67 10/21/20 17:15 93 H 19 145/80 10/21/20 17:00 100 H 23 145/80 10/21/20 16:45 99 H 23 141/85 10/21/20 16:30 101 H 22 141/85 10/21/20 16:15 101 H 25 H 122/69 10/21/20 16:00 99.2 F 93 H 16 122/69 10/21/20 15:45 91 H 19 125/60 10/21/20 15:30 98 H 23 125/60 10/21/20 15:27 100 H 24 10/21/20 15:25 85 139/85 10/21/20 15:15 90 18 128/70 10/21/20 15:00 97 H 23 128/70 10/21/20 14:45 91 H 24 130/62 10/21/20 14:30 81 18 130/62 10/21/20 14:15 92 H 15 142/84 10/21/20 14:00 99 H 17 142/84 10/21/20 13:45 99 H 20 139/85 10/21/20 13:44 85 139/85 10/21/20 13:30 107 H 18 139/85 10/21/20 13:15 113 H 20 141/81 10/21/20 13:00 110 H 19 141/81 10/21/20 12:45 95 H 22 139/83 10/21/20 12:30 82 17 139/83 10/21/20 12:21 89 136/100 10/21/20 12:15 93 H 14 145/87 10/21/20 12:00 99 F 89 17 145/87 10/21/20 11:45 83 18 140/82 10/21/20 11:30 84 19 140/82 10/21/20 11:15 84 15 136/100 10/21/20 11:01 87 16 136/100 10/21/20 10:45 87 15 136/100 10/21/20 10:31 84 14 136/100 10/21/20 10:15 88 15 136/100 10/21/20 10:00 89 14 136/100 10/21/20 09:45 90 16 149/96 10/21/20 09:30 92 H 12 149/96 10/21/20 09:16 96 H 24 10/21/20 09:15 99 H 21 127/80 10/21/20 09:14 107 H 145/68 10/21/20 09:05 10/21/20 09:01 99 H 29 H 149/80 10/21/20 08:59 93 H 12 153/72 10/21/20 08:00 98.2 F 93 H Pulse Ox 10/22/20 06:00 99 10/22/20 05:53 10/22/20 05:00 99 10/22/20 04:00 98 10/22/20 03:00 99 10/22/20 02:46 100 10/22/20 02:30 99 10/22/20 02:16 99 10/22/20 02:00 98 10/22/20 01:46 98 10/22/20 01:30 98 10/22/20 01:16 98 10/22/20 01:00 100 10/22/20 00:46 100 10/22/20 00:30 99 10/22/20 00:18 99 10/22/20 00:16 98 10/22/20 00:02 100 10/22/20 00:00 100 10/21/20 23:46 100 10/21/20 23:30 99 10/21/20 23:16 99 10/21/20 23:00 99 10/21/20 22:46 99 10/21/20 22:30 100 10/21/20 22:16 99 10/21/20 22:00 99 10/21/20 21:46 99 10/21/20 21:34 10/21/20 21:30 96 10/21/20 21:16 100 10/21/20 21:15 100 10/21/20 21:13 10/21/20 21:00 99 10/21/20 20:46 100 10/21/20 20:30 100 10/21/20 20:20 10/21/20 20:16 99 10/21/20 20:00 100 10/21/20 19:46 100 10/21/20 19:30 100 10/21/20 19:16 100 10/21/20 19:00 100 10/21/20 18:49 100 10/21/20 18:30 99 10/21/20 18:15 100 10/21/20 18:00 100 10/21/20 17:45 100 10/21/20 17:30 100 10/21/20 17:15 99 10/21/20 17:00 99 10/21/20 16:45 99 10/21/20 16:30 99 10/21/20 16:15 99 10/21/20 16:00 99 10/21/20 15:45 99 10/21/20 15:30 98 10/21/20 15:27 10/21/20 15:25 98 10/21/20 15:15 99 10/21/20 15:00 99 10/21/20 14:45 97 10/21/20 14:30 99 10/21/20 14:15 99 10/21/20 14:00 98 10/21/20 13:45 98 10/21/20 13:44 10/21/20 13:30 100 10/21/20 13:15 100 10/21/20 13:00 99 10/21/20 12:45 100 10/21/20 12:30 100 10/21/20 12:21 98 10/21/20 12:15 99 10/21/20 12:00 99 10/21/20 11:45 99 10/21/20 11:30 99 10/21/20 11:15 99 10/21/20 11:01 99 10/21/20 10:45 99 10/21/20 10:31 98 10/21/20 10:15 97 10/21/20 10:00 98 10/21/20 09:45 99 10/21/20 09:30 96 10/21/20 09:16 10/21/20 09:15 97 10/21/20 09:14 95 10/21/20 09:05 99 10/21/20 09:01 96 10/21/20 08:59 100 10/21/20 08:00 Intake and Output 10/21/20 10/22/20 10/22/20 22:59 06:59 14:59 Intake Total 2405 675 Output Total 1225 600 Balance 1180 75 Intake: IV 1535 D10w 1,000 ml @ 75 mls/hr 1000 IV DIRECT ERINN Rx#: [id number] Vancomycin 1,750 mg In 535 NaCl 0.9% 500 ml 500 ml @ 333.333 mls/hr IV Q12H ERINN Rx#:[id number] Intake, Free Water 350 220 Tube Feeding 520 455 Output: Urine 1225 600 Indwelling Catheter 1225 600 Other: Total, Intake Amount 65 65 Total, Output Amount 425 150 Voiding Method Indwelling Catheter Indwelling Catheter Weight 108 kg - Labs Labs: Abnormal lab results 10/21/20 10/21/20 Range/Units 13:54 13:54 WBC 17.0 H (4.5-11.0) K/mm3 RDW 17.8 H (13.2-15.2) % Plt Count 544 H (140-440) K/mm3 Sodium 136 L (137-145) mmol/L Glucose 120 H (65-100) mg/dL
[2020-10-22 08:57] LABS: Hemoglobin 10.5 gm/dl (10.1-14.3); Mean Corpuscular HGB Conc 34 % (30-34); Mean Corpuscular Volume 85 fl (79-97); Red Blood Count 3.64 M/mm3 (3.65-5.03); Red Cell Distribution Width 17.7 % (13.2-15.2)
[2020-10-22] MEDS: SODIUM BICARBONATE 650 MG TAB PO SCH ×3 (10:00→22:55)
[2020-10-22 10:19] LABS: Platelet Count 502 K/mm3 (140-440)
--- NOTE | 2020-10-22 10:27 | Progress Note ---
Assessment and Plan 30 y/o female with Eclampsia, s/p emergent section with DIC, acute respiratory failure and worsening renal function. 10/22/20: Will start prolonged PSV trials. Attempt to wean from vent and then transition to floor to see if mental status improves. Continue tube feeds. 10/21/20: Trach and peg placed. No sedation. Restart Lovenox for Upper Ext DVT. Restart feeds when surgery states ok to use PEG. C. Diff treatment per ID. Guarded prognosis. Will be a exterminator helper wean. Hopeful to wean off vent at least and then can transfer to floor. 10/20/20: NPO after midnight. DVT study just read from 10/14 on yesterday showing upper ext DVT. Started on Lovenox but need to hold therapy until after surgery. could be source of fevers. No sedation. 10/19/20: Stable BP. Will meet/talk with family at noon over the phone with myself and case management. Need to discuss goals of care and what next steps would be. Patient would need trach and peg and transfer to LTACH if family ok with this. Follow up speciation of GNR's in blood. Has been on Cefepime. Continues therapy for C. Diff. Guarded prognosis. Continue daily PSV trials but not ready for extubation secondary to mental state. 10/18/20: Blood pressure is much better with the addition of meds started on yesterday. Need to have family meeting jesica in regards to goals of care. Continue Daily PSV trials but not ready for extubation. Continue therapy for C. Diff per ID. 10/17/20: CT scan was of no help in regards to fevers. C. Diff is positive and BP now is more uncontrolled despite increasing labetalol. Today will increase to 300 TID. Added TID Hydralazine and added PO lasix given her mild pulmonary htn seen on echo. Spoke with mother over the phone and she requests to come see the patient. Given current circumstances, will allow her to come briefly today and then will speak with her at the bedside. No neurology is available at the time and suspect these will be the majority of her questions. Tolerated PSV briefly yesterday and will do again today but not for extended periods as given her mental state she is not a candidate for extubation. I will also ask the mother about exterminator helper care (trach and peg) when she comes today. Overall prognosis is guarded to poor. If oral meds cannot regulate blood pressure, may need Cardene drip. Continue therapy for C. Diff per ID. 10/16/20: Needs a different consent for CT of abdomen and pelvis. I have signed the one in the chart. The nurse who obtained the first consent did obtain consent for contrast, it just wasn't listed on the that consent. Await neurology input on EEG vs MRI findings. Patient has now been intubated 14 days. Need to have family meeting to discuss goals of care but I suspect family will want to hear from Neurology as well. Tolerating PSV trials but will only do flaca efly as patient is not a candidate for extubation today. Will increase labetalol to 200 TID based on MRI report. Overall prognosis is guarded to poor. 10/15/2020: MRI and CT's today. Continue Precedex and PRN fent pushes. ID ordered C. Diff test. Continue D10 and tube feeds. Continue vent support. Suspect patient will need trach and peg. 10/14/2020: Await MRI. Continue Precedex and only use PRN fent pushes. CM states that there is a . Now with persistent fever, will obtain CT abdomen pelvis with contrast to see if source for fevers can be found. Continue D10 as sugars are still not elevated. 10/12/2020: Patient seen on 10/12 but note entered late. Formal neurology co nsult today. Hold all sedation if possible and only use precedex. CM to find out if there is truly a or if the decisions would fall on mother as I do not know the ages of her children but I don't think they are of age to make decisions. Guarded prognosis given mental state. 10/08/2020: Will start patient on precedex today. Plan is to wean off fent drip. Will increase buspar to BID. Need to see patient on as little sedation as possible to determine neurological status. EEG has still not been read. Mag stopped yesterday. Largest concern now is neurologic function. 10/07/2020: Head CT unremarkable. Await EEG to be read. Will stop mag Drip. If seizures occur then will load with Keppra and start BID dosing of this. Appreciate OB note. Continue D10 as sugars are still not severely elevated until feeds are at goal. PRN ativan present as well. Will add dilaudid for zabrina n control. Increased BB to TID and added PRN hydralazine 10/06/2020: Stat Head CT today. Likely needs EEG. Will order. Continue Mag drip and follow up levels. Continue feeds. Continue to wean FiO2 as tolerated. Hold sedatives but can give PRN ativan as needed for seizure activity. Continue D10 as Tube feeds are not at goal yet. Guarded prognosis with mental state. 10/05/2020: Feed today. Stop Albumin and Abx. Will stop D10 once feeds start but will continue q2 hour FSBS until 3 consecutive >180. H/H stable. Will continue to aggressively wean FiO2. Patient has a 6.5 tube that will likely impede PSV trials given her size so will attempt to change out. Also will restart her home meds for anxiety and chronic migraine therapy. Prognosis is still guarded but promising given her hemodynamic stability. Continue chowdhury for accurate urine out put. 10/04/2020: Much improved today. Still very ill however. Down to just one pressor. Still with good urine output. Await chemistry results from this am. Likely can stop Bicarb drip given improvement in pH but would like to see bicarb on blood work. Agree with continued transfusion of blood products. Needs fibrinongen levels as well as repeat coags. I cannot see the standing orders on my screen so will call down to lab and let them know what's needed. I know she has had at leas 2 cryo's but I am not exactly sure if the count is accurate in the computer in regards to PRBC's and FFP's. Platelets lower this am but still greater than 30K. Continue chowdhury for I/O measurement. Will start to wean FiO2 on vent. CXR looks like edema but oxygenation is stable right now. Resuscitation is the most important thing right now. Will continue abx therapy at least 24 more hours. Prognosis is still very guarded but patient showing signs of improvement. 1. CV-Extremely volume deplete as well as intrasvascular depletion. Will continue to bolus with LR and saline as needed. Will add Albumin to help with intravascular volume. Spoke with OB attending over phone yesterday. No acute indication for steroids at this time. Serial H/H's given maximum pressor requirements. Will transfuse to keep up with AVINASH drain and help with weaning. Severely acidotic but improving. Likely adding to pressor requirement. GOAL is map of 65 and will wean accordingly. Will start to wean Sohail first. Ordered art line as well. 2. Heme-DIC secondary to Eclampsia, possible sepsis but white count could be stress related. Will continue to transfuse PRBC's and FFP with Cryo as needed. Follow Fibrinogen levels. Tele Heme has been consulted and note reviewed. Will give one cryo for every 6 units of PRBC's transfused. has gotten one cryo, awaiting the other to thaw out. Plts at 72K right now. Hold on further transfusion. May need to consider Factor VII if execessive bleeding continues. Will also put on broad spec abx therapy incase of possible sepsis causing DIC. Hopeful with correction of coaguloapthy she will improve. 3. Very very guarded prognosis. Will continue aggressive resuscitation. Family to come visit given exceptional case and extremely guarded prognosis. CCT 31 minutes. Subjective Date of service: 10/22/20 Principal diagnosis: Eclampsia/HELLP Syndrome, ADOLPH, DIC; s/p , s/p supracervical hyst Interval history: Eyes open but not responsive. Objective Vital Signs - 12hr 10/21/20 10/21/20 10/21/20 22:30 22:46 23:00 Temperature Pulse Rate 95 H 93 H 100 H Pulse Rate [ Anterior Bilateral Throughout] Pulse Rate [ From Monitor] Respiratory 22 23 19 Rate Respiratory Rate [Anterior Bilateral Throughout] Blood Pressure 122/49 104/53 121/64 O2 Sat by Pulse 100 99 99 Oximetry 10/21/20 10/21/20 10/21/20 23:16 23:30 23:46 Temperature Pulse Rate 99 H 103 H 95 H Pulse Rate [ Anterior Bilateral Throughout] Pulse Rate [ From Monitor] Respiratory 24 15 24 Rate Respiratory Rate [Anterior Bilateral Throughout] Blood Pressure 121/64 133/70 133/70 O2 Sat by Pulse 99 99 100 Oximetry 10/22/20 10/22/20 10/22/20 00:00 00:02 00:16 Temperature 99.9 F H Pulse Rate 93 H 99 H 96 H Pulse Rate [ 106 H Anterior Bilateral Throughout] Pulse Rate [ From Monitor] Respiratory 19 22 17 Rate Respiratory 23 Rate [Anterior Bilateral Throughout] Blood Pressure 123/58 123/58 123/58 O2 Sat by Pulse 100 100 98 Oximetry 10/22/20 10/22/2010/22/21 00:18 00:30 00:46 Temperature Pulse Rate 101 H 106 H Pulse Rate [ Anterior Bilateral Throughout] Pulse Rate [ 95 H From Monitor] Respiratory 22 16 25 H Rate Respiratory Rate [Anterior Bilateral Throughout] Blood Pressure 117/62 117/62 O2 Sat by Pulse 99 99 100 Oximetry 10/22/20 10/22/20 10/22/20 01:00 01:16 01:30 Temperature Pulse Rate 100 H 109 H 106 H Pulse Rate [ Anterior Bilateral Throughout] Pulse Rate [ From Monitor] Respiratory 18 29 H 22 Rate Respiratory Rate [Anterior Bilateral Throughout] Blood Pressure 138/68 138/68 127/68 O2 Sat by Pulse 100 98 98 Oximetry 10/22/20 10/22/20 10/22/20 01:46 02:00 02:16 Temperature Pulse Rate 102 H 109 H 103 H Pulse Rate [ Anterior Bilateral Throughout] Pulse Rate [ From Monitor] Respiratory 23 23 16 Rate Respiratory Rate [Anterior Bilateral Throughout] Blood Pressure 127/68 132/88 132/88 O2 Sat by Pulse 98 98 99 Oximetry 10/22/20 10/22/20 10/22/20 02:30 02:46 03:00 Temperature Pulse Rate 97 H 102 H 105 H Pulse Rate [ Anterior Bilateral Throughout] Pulse Rate [ From Monitor] Respiratory 22 25 H 23 Rate Respiratory Rate [Anterior Bilateral Throughout] Blood Pressure 122/68 122/68 128/73 O2 Sat by Pulse 99 100 99 Oximetry 10/22/20 10/22/20 10/22/20 04:00 05:00 05:53 Temperature 98.8 F Pulse Rate 117 H 100 H 102 H Pulse Rate [ Anterior Bilateral Throughout] Pulse Rate [ 114 H From Monitor] Respiratory 38 H 20 Rate Respiratory Rate [Anterior Bilateral Throughout] Blood Pressure 145/80 121/75 118/77 O2 Sat by Pulse 98 99 Oximetry 10/22/20 10/22/20 10/22/20 06:00 07:00 07:35 Temperature Pulse Rate 102 H 96 H 109 H Pulse Rate [ 113 H Anterior Bilateral Throughout] Pulse Rate [ From Monitor] Respiratory 15 26 H Rate Respiratory 24 Rate [Anterior Bilateral Throughout] Blood Pressure 136/73 136/73 139/58 O2 Sat by Pulse 99 99 100 Oximetry 10/22/20 08:00 Temperature 99.5 F Pulse Rate 104 H Pulse Rate [ Anterior Bilateral Throughout] Pulse Rate [ From Monitor] Respiratory 23 Rate Respiratory Rate [Anterior Bilateral Throughout] Blood Pressure 146/56 O2 Sat by Pulse 100 Oximetry Constitutional: comatose, other (critically ill on ventilator) Eyes: non-icteric ENT: oropharynx moist, other (orally intubated and not sedated) Neck: other (large in cirumference) Effort: normal Ascultation: Bilateral: clear, diminished breath sounds, other (coarse BS bilaterally w/ mild faint wheezes) Percussion: Bilateral: not dull Cardiovascular: regular rate and rhythm, other (no mrg) Gastrointestinal: normoactive bowel sounds, soft, other (post surgical changes with drain on the left side) Extremities: no cyanosis, pink and warm, anasarca Neurologic: other (unresponsive, not following commands, not tracking) Psychiatric: other (unable to assess) CBC and BMP: 10/22/20 07:26 10/21/20 13:54 ABG, PT/INR, D-dimer: ABG ABG pH 7.473 (7.320-7.450) H 10/13/20 07:18 POC ABG pCO2 20.7 mmHg (32.0-48.0) L 10/13/20 07:18 ABG pCO2 25.0 mm Hg 10/10/20 04:42 POC ABG pO2 137.9 mmHg (83-108) H 10/13/20 07:18 ABG pO2 95.2 mm Hg (80.0-90.0) H 10/10/20 04:42 POC ABG HCO3 14.8 10/13/20 07:18 ABG O2 Saturation 97.9 % (95.0-99.0) 10/10/20 04:42 PT/INR, D-dimer PT 13.6 Sec. (12.2-14.9) 10/21/20 13:54 INR 1.06 (0.87-1.13) 10/21/20 13:54 D-Dimer > 65261 ng/mlDDU (0-234) H 10/04/20 10:00 Abnormal lab findings: Abnormal Labs 10/02/20 10/02/20 10/02/20 12:03 12:18 12:18 WBC 14.9 H RBC Hgb 9.1 L Hct MCV MCH 22 L MCHC 28 L RDW 17.6 H Plt Count 102 L Lymph % (Auto) [place] % (Auto) Lymph # (Auto) [place] # (Auto) Baso # (Auto) Seg Neutrophils % Seg Neuts % (Manual) 36.0 L Lymphocytes % (Manual) 49.0 H Monocytes % (Manual) Nucleated RBC % 6.0 H Seg Neutrophils # Seg Neutrophils # Man Lymphocytes # (Manual) 7.3 H Monocytes # (Manual) PT INR APTT Fibrinogen D-Dimer ABG pH POC ABG pCO2 POC ABG pO2 ABG pO2 ABG HCO3 ABG Base Excess ABG Hemoglobin ABG Oxyhemoglobin ABG Sodium ABG Potassium ABG Chloride ABG Glucose VBG pH Oxyhemoglobin Carboxyhemoglobin Sodium 134 L Potassium Chloride Carbon Dioxide 12 L BUN 6 L Creatinine Glucose 390 H POC Glucose 451 H Lactic Acid Calcium Ionized Calcium Magnesium AST 135 H ALT 85 H Alkaline Phosphatase 172 H Lactate Dehydrogenase 641 H NT-Pro-B Natriuret Pep Total Protein 5.4 L Albumin 2.3 L Arterial Blood Glucose Arterial Blood Ionized Calcium Urine WBC (Auto) Vancomycin Trough Phenytoin Crossmatch 10/02/20 10/02/20 10/02/20 12:50 13:05 13:05 WBC 38.6 H RBC Hgb 8.9 L Hct 29.0 L MCV 73 L MCH 22 L MCHC RDW 17.2 H Plt Count Lymph % (Auto) [place] % (Auto) Lymph # (Auto) [place] # (Auto) Baso # (Auto) Seg Neutrophils % Seg Neuts % (Manual) Lymphocytes % (Manual) Monocytes % (Manual) Nucleated RBC % 2.0 H Seg Neutrophils # Seg Neutrophils # Man 20.1 H Lymphocytes # (Manual) 10.4 H Monocytes # (Manual) 2.3 H PT INR APTT Fibrinogen D-Dimer ABG pH POC ABG pCO2 POC ABG pO2 ABG pO2 ABG HCO3 ABG Base Excess ABG Hemoglobin ABG Oxyhemoglobin ABG Sodium ABG Potassium ABG Chloride ABG Glucose VBG pH Oxyhemoglobin Carboxyhemoglobin Sodium Potassium Chloride Carbon Dioxide BUN Creatinine Glucose POC Glucose Lactic Acid Calcium Ionized Calcium Magnesium AST 184 H ALT 113 H Alkaline Phosphatase Lactate Dehydrogenase 769 H NT-Pro-B Natriuret Pep Total Protein Albumin Arterial Blood Glucose Arterial Blood Ionized Calcium Urine WBC (Auto) Vancomycin Trough Phenytoin Crossmatch See Detail 10/02/20 10/02/20 10/02/20 16:25 16:35 16:35 WBC RBC Hgb Hct MCV MCH MCHC RDW Plt Count Lymph % (Auto) [place] % (Auto) Lymph # (Auto) [place] # (Auto) Baso # (Auto) Seg Neutrophils % Seg Neuts % (Manual) Lymphocytes % (Manual) Monocytes % (Manual) Nucleated RBC % Seg Neutrophils # Seg Neutrophils # Man Lymphocytes # (Manual) Monocytes # (Manual) PT INR APTT Fibrinogen D-Dimer ABG pH 7.031 L* POC ABG pCO2 POC ABG pO2 ABG pO2 116.8 H ABG HCO3 12.7 L ABG Base Excess -16.9 L ABG Hemoglobin 7.8 L ABG Oxyhemoglobin ABG Sodium ABG Potassium ABG Chloride ABG Glucose VBG pH Oxyhemoglobin 94.9 L Carboxyhemoglobin Sodium Potassium Chloride Carbon Dioxide BUN Creatinine Glucose 403 H POC Glucose Lactic Acid 11.40 H* Calcium 6.3 L D Ionized Calcium Magnesium AST 70 H ALT Alkaline Phosphatase Lactate Dehydrogenase NT-Pro-B Natriuret Pep Total Protein 1.9 L D Albumin 1.2 L Arterial Blood Glucose Arterial Blood Ionized Calcium Urine WBC (Auto) Vancomycin Trough Phenytoin Crossmatch 10/02/20 10/02/20 10/02/20 18:18 18:18 22:30 WBC 11.5 H RBC 2.06 L Hgb 5.5 L* D Hct 17.3 L* D MCV MCH 27 L MCHC RDW 19.5 H Plt Count 60 L Lymph % (Auto) [place] % (Auto) Lymph # (Auto) [place] # (Auto) Baso # (Auto) Seg Neutrophils % Seg Neuts % (Manual) Lymphocytes % (Manual) 8.0 L Monocytes % (Manual) 8.0 H Nucleated RBC % 8.0 H Seg Neutrophils # Seg Neutrophils # Man Lymphocytes # (Manual) 0.9 L Monocytes # (Manual) 0.9 H PT 37.1 H INR 3.71 H APTT 135.8 H* Fibrinogen D-Dimer ABG pH 7.067 L* POC ABG pCO2 POC ABG pO2 ABG pO2 183.0 H ABG HCO3 14.1 L ABG Base Excess -15.1 L ABG Hemoglobin 7.7 L ABG Oxyhemoglobin ABG Sodium ABG Potassium ABG Chloride ABG Glucose VBG pH Oxyhemoglobin Carboxyhemoglobin Sodium Potassium Chloride Carbon Dioxide BUN Creatinine Glucose POC Glucose Lactic Acid Calcium Ionized Calcium Magnesium AST ALT Alkaline Phosphatase Lactate Dehydrogenase NT-Pro-B Natriuret Pep Total Protein Albumin Arterial Blood Glucose Arterial Blood Ionized Calcium Urine WBC (Auto) Vancomycin Trough Phenytoin Crossmatch 10/02/20 10/02/20 10/03/20 Unknown Unknown 00:01 WBC RBC Hgb Hct MCV MCH MCHC RDW Plt Count Lymph % (Auto) [place] % (Auto) Lymph # (Auto) [place] # (Auto) Baso # (Auto) Seg Neutrophils % Seg Neuts % (Manual) Lymphocytes % (Manual) Monocytes % (Manual) Nucleated RBC % Seg Neutrophils # Seg Neutrophils # Man Lymphocytes # (Manual) Monocytes # (Manual) PT 61.1 H INR 6.92 H* APTT 158.7 H* Fibrinogen < 60 L* D-Dimer > 77401 H ABG pH POC ABG pCO2 POC ABG pO2 ABG pO2 ABG HCO3 ABG Base Excess ABG Hemoglobin ABG Oxyhemoglobin ABG Sodium ABG Potassium ABG Chloride ABG Glucose VBG pH 6.949 L* Oxyhemoglobin Carboxyhemoglobin Sodium Potassium Chloride Carbon Dioxide BUN Creatinine Glucose POC Glucose 196 H Lactic Acid Calcium Ionized Calcium Magnesium AST ALT Alkaline Phosphatase Lactate Dehydrogenase NT-Pro-B Natriuret Pep Total Protein Albumin Arterial Blood Glucose Arterial Blood Ionized Calcium Urine WBC (Auto) Vancomycin Trough Phenytoin Crossmatch 10/03/20 10/03/20 10/03/20 00:40 00:40 00:40 WBC RBC Hgb Hct MCV MCH MCHC RDW Plt Count Lymph % (Auto) [place] % (Auto) Lymph # (Auto) [place] # (Auto) Baso # (Auto) Seg Neutrophils % Seg Neuts % (Manual) Lymphocytes % (Manual) Monocytes % (Manual) Nucleated RBC % Seg Neutrophils # Seg Neutrophils # Man Lymphocytes # (Manual) Monocytes # (Manual) PT 15.1 H INR 1.21 H APTT Fibrinogen D-Dimer ABG pH POC ABG pCO2 POC ABG pO2 ABG pO2 ABG HCO3 ABG Base Excess ABG Hemoglobin ABG Oxyhemoglobin ABG Sodium ABG Potassium ABG Chloride ABG Glucose VBG pH Oxyhemoglobin Carboxyhemoglobin Sodium 136 L Potassium Chloride Carbon Dioxide BUN Creatinine 1.6 H D Glucose 106 H POC Glucose Lactic Acid 5.60 H* Calcium 6.5 L Ionized Calcium Magnesium AST 232 H ALT 104 H Alkaline Phosphatase Lactate Dehydrogenase NT-Pro-B Natriuret Pep Total Protein 3.9 L D Albumin 2.4 L Arterial Blood Glucose Arterial Blood Ionized Calcium Urine WBC (Auto) Vancomycin Trough Phenytoin Crossmatch 10/03/20 10/03/20 10/03/20 02:08 02:08 02:08 WBC 17.6 H RBC 3.27 L Hgb 9.9 L D Hct 29.9 L D MCV MCH MCHC RDW 16.5 H Plt Count 75 L Lymph % (Auto) [place] % (Auto) Lymph # (Auto) [place] # (Auto) Baso # (Auto) Seg Neutrophils % Seg Neuts % (Manual) 76.0 H Lymphocytes % (Manual) Monocytes % (Manual) Nucleated RBC % 8.0 H Seg Neutrophils # Seg Neutrophils # Man 13.4 H Lymphocytes # (Manual) Monocytes # (Manual) PT INR APTT Fibrinogen D-Dimer ABG pH POC ABG pCO2 POC ABG pO2 ABG pO2 ABG HCO3 ABG Base Excess ABG Hemoglobin ABG Oxyhemoglobin ABG Sodium ABG Potassium ABG Chloride ABG Glucose VBG pH Oxyhemoglobin Carboxyhemoglobin Sodium Potassium Chloride Carbon Dioxide 19 L BUN Creatinine 1.4 H Glucose 306 H POC Glucose Lactic Acid 10.50 H* Calcium 6.4 L Ionized Calcium Magnesium AST ALT Alkaline Phosphatase Lactate Dehydrogenase NT-Pro-B Natriuret Pep Total Protein Albumin Arterial Blood Glucose Arterial Blood Ionized Calcium Urine WBC (Auto) Vancomycin Trough Phenytoin Crossmatch 10/03/20 10/03/20 10/03/20 02:42 03:59 05:31 WBC RBC Hgb Hct MCV MCH MCHC RDW Plt Count Lymph % (Auto) [place] % (Auto) Lymph # (Auto) [place] # (Auto) Baso # (Auto) Seg Neutrophils % Seg Neuts % (Manual) Lymphocytes % (Manual) Monocytes % (Manual) Nucleated RBC % Seg Neutrophils # Seg Neutrophils # Man Lymphocytes # (Manual) Monocytes # (Manual) PT INR APTT Fibrinogen D-Dimer ABG pH 7.144 L POC ABG pCO2 54.4 H POC ABG pO2 ABG pO2 ABG HCO3 ABG Base Excess ABG Hemoglobin 10.0 L ABG Oxyhemoglobin ABG Sodium ABG Potassium ABG Chloride 108.0 H ABG Glucose 306 H VBG pH Oxyhemoglobin Carboxyhemoglobin Sodium Potassium Chloride Carbon Dioxide BUN Creatinine Glucose POC Glucose 209 H Lactic Acid 9.20 H* Calcium Ionized Calcium Magnesium AST ALT Alkaline Phosphatase Lactate Dehydrogenase NT-Pro-B Natriuret Pep Total Protein Albumin Arterial Blood Glucose 306 H Arterial Blood Ionized Calcium 3.7 L Urine WBC (Auto) Vancomycin Trough Phenytoin Crossmatch 10/03/20 10/03/20 10/03/20 09:00 09:00 09:00 WBC 27.4 H RBC 2.84 L Hgb 8.5 L Hct 25.1 L MCV MCH MCHC RDW 16.1 H Plt Count 72 L Lymph % (Auto) [place] % (Auto) Lymph # (Auto) [place] # (Auto) Baso # (Auto) Seg Neutrophils % Seg Neuts % (Manual) Lymphocytes % (Manual) 11.0 L Monocytes % (Manual) Nucleated RBC % 3.0 H Seg Neutrophils # Seg Neutrophils # Man 18.4 H Lymphocytes # (Manual) Monocytes # (Manual) 1.9 H PT INR APTT Fibrinogen D-Dimer ABG pH POC ABG pCO2 POC ABG pO2 ABG pO2 ABG HCO3 ABG Base Excess ABG Hemoglobin ABG Oxyhemoglobin ABG Sodium ABG Potassium ABG Chloride ABG Glucose VBG pH Oxyhemoglobin Carboxyhemoglobin Sodium Potassium Chloride Carbon Dioxide BUN Creatinine 1.7 H Glucose 216 H POC Glucose Lactic Acid 9.20 H* Calcium 6.3 L Ionized Calcium Magnesium AST 331 H ALT 171 H Alkaline Phosphatase Lactate Dehydrogenase NT-Pro-B Natriuret Pep Total Protein 3.7 L Albumin 1.9 L Arterial Blood Glucose Arterial Blood Ionized Calcium Urine WBC (Auto) Vancomycin Trough Phenytoin Crossmatch 10/03/20 10/03/20 10/03/20 11:20 11:46 11:50 WBC 28.7 H RBC 2.67 L Hgb 8.0 L Hct 23.7 L MCV MCH MCHC RDW 16.6 H Plt Count 76 L Lymph % (Auto) [place] % (Auto) Lymph # (Auto) [place] # (Auto) Baso # (Auto) Seg Neutrophils % Seg Neuts % (Manual) Lymphocytes % (Manual) Monocytes % (Manual) Nucleated RBC % Seg Neutrophils # Seg Neutrophils # Man Lymphocytes # (Manual) Monocytes # (Manual) PT INR APTT Fibrinogen D-Dimer ABG pH POC ABG pCO2 POC ABG pO2 ABG pO2 ABG HCO3 ABG Base Excess ABG Hemoglobin ABG Oxyhemoglobin ABG Sodium ABG Potassium ABG Chloride ABG Glucose VBG pH Oxyhemoglobin Carboxyhemoglobin Sodium Potassium Chloride Carbon Dioxide BUN Creatinine Glucose POC Glucose 125 H Lactic Acid 8.00 H* Calcium Ionized Calcium Magnesium AST ALT Alkaline Phosphatase Lactate Dehydrogenase NT-Pro-B Natriuret Pep Total Protein Albumin Arterial Blood Glucose Arterial Blood Ionized Calcium Urine WBC (Auto) Vancomycin Trough Phenytoin Crossmatch 10/03/20 10/04/20 10/04/20 11:50 00:40 00:40 WBC RBC Hgb 6.8 L Hct 19.4 L* MCV MCH MCHC RDW Plt Count 49 L Lymph % (Auto) [place] % (Auto) Lymph # (Auto) [place] # (Auto) Baso # (Auto) Seg Neutrophils % Seg Neuts % (Manual) Lymphocytes % (Manual) Monocytes % (Manual) Nucleated RBC % Seg Neutrophils # Seg Neutrophils # Man Lymphocytes # (Manual) Monocytes # (Manual) PT INR APTT Fibrinogen D-Dimer ABG pH 7.244 L POC ABG pCO2 POC ABG pO2 ABG pO2 ABG HCO3 ABG Base Excess -4.5 L ABG Hemoglobin 7.3 L ABG Oxyhemoglobin ABG Sodium ABG Potassium ABG Chloride ABG Glucose VBG pH Oxyhemoglobin Carboxyhemoglobin Sodium Potassium Chloride Carbon Dioxide BUN Creatinine Glucose POC Glucose Lactic Acid Calcium Ionized Calcium Magnesium AST ALT Alkaline Phosphatase Lactate Dehydrogenase NT-Pro-B Natriuret Pep Total Protein Albumin Arterial Blood Glucose Arterial Blood Ionized Calcium Urine WBC (Auto) Vancomycin Trough Phenytoin Crossmatch 10/04/20 10/04/20 10/04/20 03:53 10:00 10:00 WBC 14.6 H RBC 2.57 L Hgb 7.6 L Hct 22.5 L MCV MCH MCHC RDW 15.8 H Plt Count 38 L Lymph % (Auto) 7.7 L [place] % (Auto) Lymph # (Auto) 1.1 L [place] # (Auto) 0.9 H Baso # (Auto) Seg Neutrophils % 85.6 H Seg Neuts % (Manual) Lymphocytes % (Manual) Monocytes % (Manual) Nucleated RBC % Seg Neutrophils # 12.5 H Seg Neutrophils # Man Lymphocytes # (Manual) Monocytes # (Manual) PT INR APTT Fibrinogen D-Dimer ABG pH POC ABG pCO2 POC ABG pO2 110.6 H ABG pO2 ABG HCO3 ABG Base Excess ABG Hemoglobin 6.7 L ABG Oxyhemoglobin ABG Sodium 132.0 L ABG Potassium ABG Chloride ABG Glucose 111 H VBG pH Oxyhemoglobin Carboxyhemoglobin Sodium 134 L D Potassium Chloride 97.6 L Carbon Dioxide BUN Creatinine 1.7 H Glucose POC Glucose Lactic Acid Calcium 6.3 L Ionized Calcium Magnesium AST 203 H ALT 81 H Alkaline Phosphatase Lactate Dehydrogenase NT-Pro-B Natriuret Pep Total Protein 3.9 L Albumin 2.3 L Arterial Blood Glucose 111 H Arterial Blood Ionized Calcium 3.5 L Urine WBC (Auto) Vancomycin Trough Phenytoin Crossmatch 10/04/20 10/04/20 10/04/20 10:00 10:00 10:14 WBC RBC Hgb Hct MCV MCH MCHC RDW Plt Count Lymph % (Auto) [place] % (Auto) Lymph # (Auto) [place] # (Auto) Baso # (Auto) Seg Neutrophils % Seg Neuts % (Manual) Lymphocytes % (Manual) Monocytes % (Manual) Nucleated RBC % Seg Neutrophils # Seg Neutrophils # Man Lymphocytes # (Manual) Monocytes # (Manual) PT INR APTT Fibrinogen D-Dimer > 71478 H ABG pH POC ABG pCO2 POC ABG pO2 ABG pO2 ABG HCO3 ABG Base Excess ABG Hemoglobin ABG Oxyhemoglobin ABG Sodium ABG Potassium ABG Chloride ABG Glucose VBG pH Oxyhemoglobin Carboxyhemoglobin Sodium Potassium Chloride Carbon Dioxide BUN Creatinine Glucose POC Glucose Lactic Acid 3.90 H* Calcium Ionized Calcium Magnesium AST ALT Alkaline Phosphatase Lactate Dehydrogenase NT-Pro-B Natriuret Pep 2788 H Total Protein Albumin Arterial Blood Glucose Arterial Blood Ionized Calcium Urine WBC (Auto) Vancomycin Trough Phenytoin Crossmatch 10/04/20 10/04/20 10/04/20 14:00 14:00 18:00 WBC 15.7 H RBC 3.17 L Hgb 9.3 L 9.6 L Hct 27.2 L 28.0 L MCV MCH MCHC RDW 16.9 H Plt Count 41 L Lymph % (Auto) 8.6 L [place] % (Auto) Lymph # (Auto) [place] # (Auto) 0.9 H Baso # (Auto) Seg Neutrophils % 85.4 H Seg Neuts % (Manual) Lymphocytes % (Manual) Monocytes % (Manual) Nucleated RBC % Seg Neutrophils # 13.4 H Seg Neutrophils # Man Lymphocytes # (Manual) Monocytes # (Manual) PT INR APTT Fibrinogen D-Dimer ABG pH POC ABG pCO2 POC ABG pO2 ABG pO2 ABG HCO3 ABG Base Excess ABG Hemoglobin ABG Oxyhemoglobin ABG Sodium ABG Potassium ABG Chloride ABG Glucose VBG pH Oxyhemoglobin Carboxyhemoglobin Sodium 133 L Potassium Chloride 96.4 L Carbon Dioxide BUN 18 H Creatinine 1.7 H Glucose POC Glucose Lactic Acid Calcium 6.3 L Ionized Calcium Magnesium AST ALT Alkaline Phosphatase Lactate Dehydrogenase NT-Pro-B Natriuret Pep Total Protein Albumin Arterial Blood Glucose Arterial Blood Ionized Calcium Urine WBC (Auto) Vancomycin Trough Phenytoin Crossmatch 10/04/20 10/04/20 10/05/20 18:00 22:00 05:00 WBC 17.6 H RBC 3.34 L Hgb 9.9 L Hct 29.4 L MCV MCH MCHC RDW 17.1 H Plt Count 56 L Lymph % (Auto) 8.5 L [place] % (Auto) Lymph # (Auto) [place] # (Auto) 1.0 H Baso # (Auto) Seg Neutrophils % 85.1 H Seg Neuts % (Manual) Lymphocytes % (Manual) Monocytes % (Manual) Nucleated RBC % Seg Neutrophils # 15.0 H Seg Neutrophils # Man Lymphocytes # (Manual) Monocytes # (Manual) PT INR APTT Fibrinogen D-Dimer ABG pH POC ABG pCO2 POC ABG pO2 ABG pO2 ABG HCO3 ABG Base Excess ABG Hemoglobin ABG Oxyhemoglobin ABG Sodium ABG Potassium ABG Chloride ABG Glucose VBG pH Oxyhemoglobin Carboxyhemoglobin Sodium 136 L Potassium Chloride Carbon Dioxide BUN 18 H Creatinine 1.7 H Glucose POC Glucose Lactic Acid 2.30 H* Calcium 6.6 L Ionized Calcium Magnesium AST ALT Alkaline Phosphatase Lactate Dehydrogenase NT-Pro-B Natriuret Pep Total Protein Albumin Arterial Blood Glucose Arterial Blood Ionized Calcium Urine WBC (Auto) Vancomycin Trough Phenytoin Crossmatch 10/05/20 10/05/20 10/05/20 05:00 05:00 05:03 WBC RBC Hgb Hct MCV MCH MCHC RDW Plt Count Lymph % (Auto) [place] % (Auto) Lymph # (Auto) [place] # (Auto) Baso # (Auto) Seg Neutrophils % Seg Neuts % (Manual) Lymphocytes % (Manual) Monocytes % (Manual) Nucleated RBC % Seg Neutrophils # Seg Neutrophils # Man Lymphocytes # (Manual) Monocytes # (Manual) PT INR APTT Fibrinogen D-Dimer ABG pH 7.458 H POC ABG pCO2 POC ABG pO2 ABG pO2 74.3 L ABG HCO3 27.5 H ABG Base Excess 3.4 H ABG Hemoglobin 10.0 L ABG Oxyhemoglobin ABG Sodium ABG Potassium ABG Chloride ABG Glucose VBG pH Oxyhemoglobin 94.9 L Carboxyhemoglobin Sodium Potassium Chloride Carbon Dioxide BUN 19 H Creatinine 1.8 H Glucose POC Glucose Lactic Acid Calcium 6.8 L Ionized Calcium 3.9 L Magnesium AST 225 H ALT 85 H Alkaline Phosphatase Lactate Dehydrogenase NT-Pro-B Natriuret Pep Total Protein 4.5 L Albumin 2.7 L Arterial Blood Glucose Arterial Blood Ionized Calcium Urine WBC (Auto) Vancomycin Trough Phenytoin Crossmatch 10/05/20 10/05/20 10/05/20 10:10 15:00 19:40 WBC RBC Hgb Hct MCV MCH MCHC RDW Plt Count Lymph % (Auto) [place] % (Auto) Lymph # (Auto) [place] # (Auto) Baso # (Auto) Seg Neutrophils % Seg Neuts % (Manual) Lymphocytes % (Manual) Monocytes % (Manual) Nucleated RBC % Seg Neutrophils # Seg Neutrophils # Man Lymphocytes # (Manual) Monocytes # (Manual) PT INR APTT Fibrinogen D-Dimer ABG pH POC ABG pCO2 POC ABG pO2 ABG pO2 ABG HCO3 ABG Base Excess ABG Hemoglobin ABG Oxyhemoglobin ABG Sodium ABG Potassium ABG Chloride ABG Glucose VBG pH Oxyhemoglobin Carboxyhemoglobin Sodium Potassium 3.5 L Chloride Carbon Dioxide 31 H 32 H BUN 19 H 19 H Creatinine 1.8 H 1.8 H Glucose POC Glucose Lactic Acid Calcium 7.0 L 7.2 L Ionized Calcium Magnesium 2.90 H AST ALT Alkaline Phosphatase Lactate Dehydrogenase NT-Pro-B Natriuret Pep Total Protein Albumin Arterial Blood Glucose Arterial Blood Ionized Calcium Urine WBC (Auto) Vancomycin Trough Phenytoin Crossmatch 10/06/20 10/06/20 10/06/20 01:05 03:12 04:00 WBC 17.1 H RBC 3.47 L Hgb Hct MCV MCH MCHC RDW 17.4 H Plt Count 82 L Lymph % (Auto) 8.3 L [place] % (Auto) Lymph # (Auto) [place] # (Auto) 1.1 H Baso # (Auto) Seg Neutrophils % 83.8 H Seg Neuts % (Manual) Lymphocytes % (Manual) Monocytes % (Manual) Nucleated RBC % Seg Neutrophils # 14.3 H Seg Neutrophils # Man Lymphocytes # (Manual) Monocytes # (Manual) PT INR APTT Fibrinogen D-Dimer ABG pH 7.474 H POC ABG pCO2 POC ABG pO2 129.5 H ABG pO2 ABG HCO3 ABG Base Excess ABG Hemoglobin 11.4 L ABG Oxyhemoglobin ABG Sodium 131.8 L ABG Potassium ABG Chloride ABG Glucose 103 H VBG pH Oxyhemoglobin Carboxyhemoglobin 0.3 L Sodium Potassium Chloride Carbon Dioxide BUN Creatinine Glucose POC Glucose Lactic Acid Calcium Ionized Calcium Magnesium 3.70 H AST ALT Alkaline Phosphatase Lactate Dehydrogenase NT-Pro-B Natriuret Pep Total Protein Albumin Arterial Blood Glucose 103 H Arterial Blood Ionized Calcium 4.2 L Urine WBC (Auto) Vancomycin Trough Phenytoin Crossmatch 10/06/20 10/06/20 10/06/20 04:00 05:31 08:12 WBC RBC Hgb Hct MCV MCH MCHC RDW Plt Count Lymph % (Auto) [place] % (Auto) Lymph # (Auto) [place] # (Auto) Baso # (Auto) Seg Neutrophils % Seg Neuts % (Manual) Lymphocytes % (Manual) Monocytes % (Manual) Nucleated RBC % Seg Neutrophils # Seg Neutrophils # Man Lymphocytes # (Manual) Monocytes # (Manual) PT INR APTT Fibrinogen D-Dimer ABG pH POC ABG pCO2 POC ABG pO2 ABG pO2 ABG HCO3 ABG Base Excess ABG Hemoglobin ABG Oxyhemoglobin ABG Sodium ABG Potassium ABG Chloride ABG Glucose VBG pH Oxyhemoglobin Carboxyhemoglobin Sodium Potassium 3.5 L Chloride Carbon Dioxide BUN 19 H Creatinine 1.8 H Glucose 102 H POC Glucose 116 H Lactic Acid Calcium 7.2 L Ionized Calcium Magnesium 5.40 H AST 307 H ALT 137 H Alkaline Phosphatase Lactate Dehydrogenase NT-Pro-B Natriuret Pep Total Protein 4.5 L Albumin 2.6 L Arterial Blood Glucose Arterial Blood Ionized Calcium Urine WBC (Auto) Vancomycin Trough Phenytoin Crossmatch 10/06/20 10/06/20 10/06/20 11:00 11:50 20:13 WBC RBC Hgb Hct MCV MCH MCHC RDW Plt Count Lymph % (Auto) [place] % (Auto) Lymph # (Auto) [place] # (Auto) Baso # (Auto) Seg Neutrophils % Seg Neuts % (Manual) Lymphocytes % (Manual) Monocytes % (Manual) Nucleated RBC % Seg Neutrophils # Seg Neutrophils # Man Lymphocytes # (Manual) Monocytes # (Manual) PT INR APTT Fibrinogen D-Dimer ABG pH POC ABG pCO2 POC ABG pO2 ABG pO2 ABG HCO3 ABG Base Excess ABG Hemoglobin ABG Oxyhemoglobin ABG Sodium ABG Potassium ABG Chloride ABG Glucose VBG pH Oxyhemoglobin Carboxyhemoglobin Sodium Potassium Chloride Carbon Dioxide BUN Creatinine Glucose POC Glucose 106 H Lactic Acid Calcium Ionized Calcium Magnesium 6.50 H 6.20 H AST ALT Alkaline Phosphatase Lactate Dehydrogenase NT-Pro-B Natriuret Pep Total Protein Albumin Arterial Blood Glucose Arterial Blood Ionized Calcium Urine WBC (Auto) Vancomycin Trough Phenytoin Crossmatch 10/06/20 10/06/20 10/06/20 20:17 22:29 23:57 WBC RBC Hgb Hct MCV MCH MCHC RDW Plt Count Lymph % (Auto) [place] % (Auto) Lymph # (Auto) [place] # (Auto) Baso # (Auto) Seg Neutrophils % Seg Neuts % (Manual) Lymphocytes % (Manual) Monocytes % (Manual) Nucleated RBC % Seg Neutrophils # Seg Neutrophils # Man Lymphocytes # (Manual) Monocytes # (Manual) PT INR APTT Fibrinogen D-Dimer ABG pH POC ABG pCO2 POC ABG pO2 ABG pO2 ABG HCO3 ABG Base Excess ABG Hemoglobin ABG Oxyhemoglobin ABG Sodium ABG Potassium ABG Chloride ABG Glucose VBG pH Oxyhemoglobin Carboxyhemoglobin Sodium Potassium Chloride Carbon Dioxide BUN Creatinine Glucose POC Glucose 112 H 126 H 133 H Lactic Acid Calcium Ionized Calcium Magnesium AST ALT Alkaline Phosphatase Lactate Dehydrogenase NT-Pro-B Natriuret Pep Total Protein Albumin Arterial Blood Glucose Arterial Blood Ionized Calcium Urine WBC (Auto) Vancomycin Trough Phenytoin Crossmatch 10/07/20 10/07/20 10/07/20 00:35 02:22 03:16 WBC RBC Hgb Hct MCV MCH MCHC RDW Plt Count Lymph % (Auto) [place] % (Auto) Lymph # (Auto) [place] # (Auto) Baso # (Auto) Seg Neutrophils % Seg Neuts % (Manual) Lymphocytes % (Manual) Monocytes % (Manual) Nucleated RBC % Seg Neutrophils # Seg Neutrophils # Man Lymphocytes # (Manual) Monocytes # (Manual) PT INR APTT Fibrinogen D-Dimer ABG pH POC ABG pCO2 POC ABG pO2 ABG pO2 ABG HCO3 ABG Base Excess ABG Hemoglobin 11.6 L ABG Oxyhemoglobin ABG Sodium ABG Potassium ABG Chloride ABG Glucose 156 H VBG pH Oxyhemoglobin Carboxyhemoglobin 0.3 L Sodium Potassium Chloride Carbon Dioxide BUN Creatinine Glucose POC Glucose 124 H Lactic Acid Calcium Ionized Calcium Magnesium 5.90 H AST ALT Alkaline Phosphatase Lactate Dehydrogenase NT-Pro-B Natriuret Pep Total Protein Albumin Arterial Blood Glucose 156 H Arterial Blood Ionized Calcium 4.2 L Urine WBC (Auto) Vancomycin Trough Phenytoin Crossmatch 10/07/20 10/07/20 10/07/20 04:06 05:45 07:05 WBC 19.2 H RBC 3.57 L Hgb Hct MCV MCH MCHC 35 H RDW 17.1 H Plt Count 129 L Lymph % (Auto) [place] % (Auto) Lymph # (Auto) [place] # (Auto) Baso # (Auto) Seg Neutrophils % Seg Neuts % (Manual) 94.0 H Lymphocytes % (Manual) 6.0 L Monocytes % (Manual) Nucleated RBC % Seg Neutrophils # Seg Neutrophils # Man 18.0 H Lymphocytes # (Manual) Monocytes # (Manual) PT INR APTT Fibrinogen D-Dimer ABG pH POC ABG pCO2 POC ABG pO2 ABG pO2 ABG HCO3 ABG Base Excess ABG Hemoglobin ABG Oxyhemoglobin ABG Sodium ABG Potassium ABG Chloride ABG Glucose VBG pH Oxyhemoglobin Carboxyhemoglobin Sodium Potassium Chloride Carbon Dioxide BUN Creatinine Glucose POC Glucose 135 H 149 H Lactic Acid Calcium Ionized Calcium Magnesium AST ALT Alkaline Phosphatase Lactate Dehydrogenase NT-Pro-B Natriuret Pep Total Protein Albumin Arterial Blood Glucose Arterial Blood Ionized Calcium Urine WBC (Auto) Vancomycin Trough Phenytoin Crossmatch 10/07/20 10/07/20 10/07/20 07:05 07:05 12:21 WBC RBC Hgb Hct MCV MCH MCHC RDW Plt Count Lymph % (Auto) [place] % (Auto) Lymph # (Auto) [place] # (Auto) Baso # (Auto) Seg Neutrophils % Seg Neuts % (Manual) Lymphocytes % (Manual) Monocytes % (Manual) Nucleated RBC % Seg Neutrophils # Seg Neutrophils # Man Lymphocytes # (Manual) Monocytes # (Manual) PT INR APTT Fibrinogen D-Dimer ABG pH POC ABG pCO2 POC ABG pO2 ABG pO2 ABG HCO3 ABG Base Excess ABG Hemoglobin ABG Oxyhemoglobin ABG Sodium ABG Potassium ABG Chloride ABG Glucose VBG pH Oxyhemoglobin Carboxyhemoglobin Sodium Potassium Chloride Carbon Dioxide BUN 21 H Creatinine 1.7 H Glucose 171 H POC Glucose 124 H Lactic Acid Calcium 7.4 L Ionized Calcium Magnesium 6.10 H AST 245 H ALT 147 H Alkaline Phosphatase Lactate Dehydrogenase NT-Pro-B Natriuret Pep Total Protein 5.3 L Albumin 2.8 L Arterial Blood Glucose Arterial Blood Ionized Calcium Urine WBC (Auto) Vancomycin Trough Phenytoin Crossmatch 10/07/20 10/07/20 10/07/20 19:52 21:00 21:50 WBC RBC Hgb Hct MCV MCH MCHC RDW Plt Count Lymph % (Auto) [place] % (Auto) Lymph # (Auto) [place] # (Auto) Baso # (Auto) Seg Neutrophils % Seg Neuts % (Manual) Lymphocytes % (Manual) Monocytes % (Manual) Nucleated RBC % Seg Neutrophils # Seg Neutrophils # Man Lymphocytes # (Manual) Monocytes # (Manual) PT INR APTT Fibrinogen D-Dimer ABG pH POC ABG pCO2 POC ABG pO2 ABG pO2 ABG HCO3 ABG Base Excess ABG Hemoglobin ABG Oxyhemoglobin ABG Sodium ABG Potassium ABG Chloride ABG Glucose VBG pH Oxyhemoglobin Carboxyhemoglobin Sodium Potassium Chloride Carbon Dioxide BUN Creatinine Glucose POC Glucose 193 H 138 H Lactic Acid Calcium Ionized Calcium 4.4 L Magnesium AST ALT Alkaline Phosphatase Lactate Dehydrogenase NT-Pro-B Natriuret Pep Total Protein Albumin Arterial Blood Glucose Arterial Blood Ionized Calcium Urine WBC (Auto) Vancomycin Trough Phenytoin Crossmatch 10/07/20 10/08/20 10/08/20 23:41 04:20 05:30 WBC RBC Hgb Hct MCV MCH MCHC RDW Plt Count Lymph % (Auto) [place] % (Auto) Lymph # (Auto) [place] # (Auto) Baso # (Auto) Seg Neutrophils % Seg Neuts % (Manual) Lymphocytes % (Manual) Monocytes % (Manual) Nucleated RBC % Seg Neutrophils # Seg Neutrophils # Man Lymphocytes # (Manual) Monocytes # (Manual) PT INR APTT Fibrinogen D-Dimer ABG pH 7.467 H POC ABG pCO2 POC ABG pO2 189.8 H ABG pO2 ABG HCO3 ABG Base Excess ABG Hemoglobin 10.8 L ABG Oxyhemoglobin ABG Sodium ABG Potassium ABG Chloride ABG Glucose 133 H VBG pH Oxyhemoglobin Carboxyhemoglobin Sodium Potassium Chloride Carbon Dioxide BUN Creatinine Glucose POC Glucose 118 H 114 H Lactic Acid Calcium Ionized Calcium Magnesium AST ALT Alkaline Phosphatase Lactate Dehydrogenase NT-Pro-B Natriuret Pep Total Protein Albumin Arterial Blood Glucose 133 H Arterial Blood Ionized Calcium 4.2 L Urine WBC (Auto) Vancomycin Trough Phenytoin Crossmatch 10/08/20 10/08/20 10/08/20 05:43 06:42 06:42 WBC 23.6 H RBC 3.54 L Hgb Hct MCV MCH MCHC RDW 17.8 H Plt Count Lymph % (Auto) [place] % (Auto) Lymph # (Auto) [place] # (Auto) Baso # (Auto) Seg Neutrophils % Seg Neuts % (Manual) 93.0 H Lymphocytes % (Manual) 3.0 L Monocytes % (Manual) Nucleated RBC % 1.0 H Seg Neutrophils # Seg Neutrophils # Man 21.9 H Lymphocytes # (Manual) 0.7 L Monocytes # (Manual) 0.9 H PT INR APTT Fibrinogen D-Dimer ABG pH POC ABG pCO2 POC ABG pO2 ABG pO2 ABG HCO3 ABG Base Excess ABG Hemoglobin ABG Oxyhemoglobin ABG Sodium ABG Potassium ABG Chloride ABG Glucose VBG pH Oxyhemoglobin Carboxyhemoglobin Sodium Potassium Chloride Carbon Dioxide BUN 28 H Creatinine 1.6 H Glucose 141 H POC Glucose 126 H Lactic Acid Calcium 7.6 L Ionized Calcium Magnesium AST 162 H ALT 103 H Alkaline Phosphatase Lactate Dehydrogenase NT-Pro-B Natriuret Pep Total Protein 5.4 L Albumin 2.7 L Arterial Blood Glucose Arterial Blood Ionized Calcium Urine WBC (Auto) Vancomycin Trough Phenytoin Crossmatch 10/08/20 10/08/20 10/08/20 11:20 16:05 20:14 WBC RBC Hgb Hct MCV MCH MCHC RDW Plt Count Lymph % (Auto) [place] % (Auto) Lymph # (Auto) [place] # (Auto) Baso # (Auto) Seg Neutrophils % Seg Neuts % (Manual) Lymphocytes % (Manual) Monocytes % (Manual) Nucleated RBC % Seg Neutrophils # Seg Neutrophils # Man Lymphocytes # (Manual) Monocytes # (Manual) PT INR APTT Fibrinogen D-Dimer ABG pH POC ABG pCO2 POC ABG pO2 ABG pO2 ABG HCO3 ABG Base Excess ABG Hemoglobin ABG Oxyhemoglobin ABG Sodium ABG Potassium ABG Chloride ABG Glucose VBG pH Oxyhemoglobin Carboxyhemoglobin Sodium Potassium Chloride Carbon Dioxide BUN Creatinine Glucose POC Glucose 127 H 172 H 147 H Lactic Acid Calcium Ionized Calcium Magnesium AST ALT Alkaline Phosphatase Lactate Dehydrogenase NT-Pro-B Natriuret Pep Total Protein Albumin Arterial Blood Glucose Arterial Blood Ionized Calcium Urine WBC (Auto) Vancomycin Trough Phenytoin Crossmatch 10/08/20 10/08/20 10/09/20 21:27 23:24 02:10 WBC RBC Hgb Hct MCV MCH MCHC RDW Plt Count Lymph % (Auto) [place] % (Auto) Lymph # (Auto) [place] # (Auto) Baso # (Auto) Seg Neutrophils % Seg Neuts % (Manual) Lymphocytes % (Manual) Monocytes % (Manual) Nucleated RBC % Seg Neutrophils # Seg Neutrophils # Man Lymphocytes # (Manual) Monocytes # (Manual) PT INR APTT Fibrinogen D-Dimer ABG pH POC ABG pCO2 POC ABG pO2 ABG pO2 ABG HCO3 ABG Base Excess ABG Hemoglobin ABG Oxyhemoglobin ABG Sodium ABG Potassium ABG Chloride ABG Glucose VBG pH Oxyhemoglobin Carboxyhemoglobin Sodium Potassium Chloride Carbon Dioxide BUN Creatinine Glucose POC Glucose 140 H 135 H 111 H Lactic Acid Calcium Ionized Calcium Magnesium AST ALT Alkaline Phosphatase Lactate Dehydrogenase NT-Pro-B Natriuret Pep Total Protein Albumin Arterial Blood Glucose Arterial Blood Ionized Calcium Urine WBC (Auto) Vancomycin Trough Phenytoin Crossmatch 10/09/20 10/09/20 10/09/20 03:44 04:39 05:46 WBC 19.7 H RBC 3.51 L Hgb Hct MCV MCH MCHC RDW 17.7 H Plt Count Lymph % (Auto) [place] % (Auto) Lymph # (Auto) [place] # (Auto) Baso # (Auto) Seg Neutrophils % Seg Neuts % (Manual) 86.0 H Lymphocytes % (Manual) 4.0 L Monocytes % (Manual) 9.0 H Nucleated RBC % Seg Neutrophils # Seg Neutrophils # Man 16.9 H Lymphocytes # (Manual) 0.8 L Monocytes # (Manual) 1.8 H PT INR APTT Fibrinogen D-Dimer ABG pH 7.513 H POC ABG pCO2 POC ABG pO2 33.6 L ABG pO2 ABG HCO3 ABG Base Excess ABG Hemoglobin 11.1 L ABG Oxyhemoglobin 70.2 L ABG Sodium ABG Potassium 3.2 L ABG Chloride 108.0 H ABG Glucose 108 H VBG pH Oxyhemoglobin Carboxyhemoglobin Sodium Potassium Chloride Carbon Dioxide BUN Creatinine Glucose POC Glucose 109 H Lactic Acid Calcium Ionized Calcium Magnesium AST ALT Alkaline Phosphatase Lactate Dehydrogenase NT-Pro-B Natriuret Pep Total Protein Albumin Arterial Blood Glucose 108 H Arterial Blood Ionized Calcium 4.3 L Urine WBC (Auto) Vancomycin Trough Phenytoin Crossmatch 10/09/20 10/10/20 10/10/20 05:46 04:00 04:00 WBC 18.4 H RBC Hgb Hct MCV MCH MCHC RDW 17.5 H Plt Count Lymph % (Auto) 9.8 L [place] % (Auto) 8.8 H Lymph # (Auto) [place] # (Auto) 1.6 H Baso # (Auto) Seg Neutrophils % 80.0 H Seg Neuts % (Manual) Lymphocytes % (Manual) Monocytes % (Manual) Nucleated RBC % Seg Neutrophils # 14.7 H Seg Neutrophils # Man Lymphocytes # (Manual) Monocytes # (Manual) PT INR APTT Fibrinogen D-Dimer ABG pH POC ABG pCO2 POC ABG pO2 ABG pO2 ABG HCO3 ABG Base Excess ABG Hemoglobin ABG Oxyhemoglobin ABG Sodium ABG Potassium ABG Chloride ABG Glucose VBG pH Oxyhemoglobin Carboxyhemoglobin Sodium 146 H Potassium 3.2 L 2.9 L* Chloride 108.9 H 112.6 H Carbon Dioxide BUN 34 H 28 H Creatinine 1.4 H 1.3 H Glucose 109 H 101 H POC Glucose Lactic Acid Calcium 7.6 L 7.8 L Ionized Calcium Magnesium AST 137 H 122 H ALT 99 H 81 H Alkaline Phosphatase Lactate Dehydrogenase NT-Pro-B Natriuret Pep Total Protein 5.1 L 5.2 L Albumin 2.6 L 2.7 L Arterial Blood Glucose Arterial Blood Ionized Calcium Urine WBC (Auto) Vancomycin Trough Phenytoin Crossmatch 10/10/20 10/10/20 10/11/20 04:42 09:50 00:44 WBC RBC Hgb Hct MCV MCH MCHC RDW Plt Count Lymph % (Auto) [place] % (Auto) Lymph # (Auto) [place] # (Auto) Baso # (Auto) Seg Neutrophils % Seg Neuts % (Manual) Lymphocytes % (Manual) Monocytes % (Manual) Nucleated RBC % Seg Neutrophils # Seg Neutrophils # Man Lymphocytes # (Manual) Monocytes # (Manual) PT INR APTT Fibrinogen D-Dimer ABG pH 7.534 H POC ABG pCO2 POC ABG pO2 ABG pO2 95.2 H ABG HCO3 ABG Base Excess ABG Hemoglobin 11.3 L ABG Oxyhemoglobin ABG Sodium ABG Potassium ABG Chloride ABG Glucose VBG pH Oxyhemoglobin Carboxyhemoglobin Sodium Potassium Chloride Carbon Dioxide BUN Creatinine Glucose POC Glucose 109 H 106 H Lactic Acid Calcium Ionized Calcium Magnesium AST ALT Alkaline Phosphatase Lactate Dehydrogenase NT-Pro-B Natriuret Pep Total Protein Albumin Arterial Blood Glucose Arterial Blood Ionized Calcium Urine WBC (Auto) Vancomycin Trough Phenytoin Crossmatch 10/11/20 10/11/20 10/11/20 04:00 04:00 06:08 WBC 27.0 H RBC Hgb Hct MCV MCH MCHC RDW 17.7 H Plt Count Lymph % (Auto) 6.3 L [place] % (Auto) Lymph # (Auto) [place] # (Auto) 1.5 H Baso # (Auto) Seg Neutrophils % 87.1 H Seg Neuts % (Manual) Lymphocytes % (Manual) Monocytes % (Manual) Nucleated RBC % Seg Neutrophils # 23.5 H Seg Neutrophils # Man Lymphocytes # (Manual) Monocytes # (Manual) PT INR APTT Fibrinogen D-Dimer ABG pH POC ABG pCO2 POC ABG pO2 ABG pO2 ABG HCO3 ABG Base Excess ABG Hemoglobin ABG Oxyhemoglobin ABG Sodium ABG Potassium ABG Chloride ABG Glucose VBG pH Oxyhemoglobin Carboxyhemoglobin Sodium Potassium 3.2 L Chloride 110.4 H Carbon Dioxide 19 L BUN 22 H Creatinine Glucose 116 H POC Glucose 107 H Lactic Acid Calcium 7.7 L Ionized Calcium Magnesium 1.60 L AST ALT Alkaline Phosphatase Lactate Dehydrogenase NT-Pro-B Natriuret Pep Total Protein Albumin Arterial Blood Glucose Arterial Blood Ionized Calcium Urine WBC (Auto) Vancomycin Trough Phenytoin Crossmatch 10/11/20 10/11/20 10/12/20 11:41 13:26 03:52 WBC RBC Hgb Hct MCV MCH MCHC RDW Plt Count Lymph % (Auto) [place] % (Auto) Lymph # (Auto) [place] # (Auto) Baso # (Auto) Seg Neutrophils % Seg Neuts % (Manual) Lymphocytes % (Manual) Monocytes % (Manual) Nucleated RBC % Seg Neutrophils # Seg Neutrophils # Man Lymphocytes # (Manual) Monocytes # (Manual) PT INR APTT Fibrinogen D-Dimer ABG pH POC ABG pCO2 POC ABG pO2 ABG pO2 ABG HCO3 ABG Base Excess ABG Hemoglobin ABG Oxyhemoglobin ABG Sodium ABG Potassium ABG Chloride ABG Glucose VBG pH Oxyhemoglobin Carboxyhemoglobin Sodium Potassium Chloride Carbon Dioxide BUN Creatinine Glucose POC Glucose 116 H 114 H Lactic Acid Calcium Ionized Calcium Magnesium AST ALT Alkaline Phosphatase Lactate Dehydrogenase NT-Pro-B Natriuret Pep Total Protein Albumin Arterial Blood Glucose Arterial Blood Ionized Calcium Urine WBC (Auto) 24.0 H Vancomycin Trough Phenytoin Crossmatch 10/12/20 10/12/20 10/12/20 04:24 14:47 21:33 WBC RBC Hgb Hct MCV MCH MCHC RDW Plt Count Lymph % (Auto) [place] % (Auto) Lymph # (Auto) [place] # (Auto) Baso # (Auto) Seg Neutrophils % Seg Neuts % (Manual) Lymphocytes % (Manual) Monocytes % (Manual) Nucleated RBC % Seg Neutrophils # Seg Neutrophils # Man Lymphocytes # (Manual) Monocytes # (Manual) PT INR APTT Fibrinogen D-Dimer ABG pH POC ABG pCO2 POC ABG pO2 ABG pO2 ABG HCO3 ABG Base Excess ABG Hemoglobin ABG Oxyhemoglobin ABG Sodium ABG Potassium ABG Chloride ABG Glucose VBG pH Oxyhemoglobin Carboxyhemoglobin Sodium Potassium Chloride 109.9 H Carbon Dioxide 13 L BUN 18 H Creatinine Glucose 119 H POC Glucose 107 H Lactic Acid Calcium 7.6 L Ionized Calcium Magnesium 1.60 L AST ALT Alkaline Phosphatase Lactate Dehydrogenase NT-Pro-B Natriuret Pep Total Protein Albumin Arterial Blood Glucose Arterial Blood Ionized Calcium Urine WBC (Auto) Vancomycin Trough Phenytoin Crossmatch 10/12/20 10/12/20 10/13/20 Unknown Unknown 07:00 WBC 24.3 H RBC 3.38 L Hgb 9.8 L Hct MCV MCH MCHC RDW 18.7 H Plt Count Lymph % (Auto) [place] % (Auto) Lymph # (Auto) [place] # (Auto) Baso # (Auto) Seg Neutrophils % Seg Neuts % (Manual) 93.5 H Lymphocytes % (Manual) 4.5 L Monocytes % (Manual) Nucleated RBC % Seg Neutrophils # Seg Neutrophils # Man 22.7 H Lymphocytes # (Manual) 1.1 L Monocytes # (Manual) PT INR APTT Fibrinogen D-Dimer ABG pH POC ABG pCO2 POC ABG pO2 ABG pO2 ABG HCO3 ABG Base Excess ABG Hemoglobin ABG Oxyhemoglobin ABG Sodium ABG Potassium ABG Chloride ABG Glucose VBG pH Oxyhemoglobin Carboxyhemoglobin Sodium 135 L D Potassium 3.1 L Chloride Carbon Dioxide 17 L BUN Creatinine Glucose 510 H* POC Glucose Lactic Acid Calcium 7.2 L Ionized Calcium Magnesium AST ALT Alkaline Phosphatase Lactate Dehydrogenase NT-Pro-B Natriuret Pep Total Protein Albumin Arterial Blood Glucose Arterial Blood Ionized Calcium Urine WBC (Auto) Vancomycin Trough Phenytoin 5.7 L Crossmatch 10/13/20 10/13/20 10/13/20 07:00 07:00 07:18 WBC 23.6 H RBC 3.26 L Hgb 9.4 L Hct 28.7 L MCV MCH MCHC RDW 18.3 H Plt Count Lymph % (Auto) [place] % (Auto) Lymph # (Auto) [place] # (Auto) Baso # (Auto) Seg Neutrophils % Seg Neuts % (Manual) Lymphocytes % (Manual) Monocytes % (Manual) Nucleated RBC % Seg Neutrophils # Seg Neutrophils # Man Lymphocytes # (Manual) Monocytes # (Manual) PT INR APTT Fibrinogen D-Dimer ABG pH 7.473 H POC ABG pCO2 20.7 L POC ABG pO2 137.9 H ABG pO2 ABG HCO3 ABG Base Excess ABG Hemoglobin 11.2 L ABG Oxyhemoglobin 98.3 H ABG Sodium 135.9 L ABG Potassium ABG Chloride 111.0 H ABG Glucose 109 H VBG pH Oxyhemoglobin Carboxyhemoglobin 0.3 L Sodium 135 L Potassium 3.5 L Chloride 109.1 H Carbon Dioxide 18 L BUN Creatinine Glucose POC Glucose Lactic Acid Calcium 7.3 L Ionized Calcium Magnesium 1.60 L AST ALT Alkaline Phosphatase Lactate Dehydrogenase NT-Pro-B Natriuret Pep Total Protein Albumin Arterial Blood Glucose 109 H Arterial Blood Ionized Calcium Urine WBC (Auto) Vancomycin Trough Phenytoin Crossmatch 10/14/20 10/14/20 10/15/20 04:00 04:00 05:50 WBC 28.6 H 23.2 H RBC 3.61 L 3.43 L Hgb 9.9 L Hct 30.0 L MCV MCH MCHC RDW 18.3 H 18.2 H Plt Count Lymph % (Auto) [place] % (Auto) Lymph # (Auto) [place] # (Auto) Baso # (Auto) Seg Neutrophils % Seg Neuts % (Manual) 88.0 H 90.0 H Lymphocytes % (Manual) 5.0 L 4.0 L Monocytes % (Manual) Nucleated RBC % Seg Neutrophils # Seg Neutrophils # Man 25.2 H 20.9 H Lymphocytes # (Manual) 0.9 L Monocytes # (Manual) 1.4 H 0.9 H PT INR APTT Fibrinogen D-Dimer ABG pH POC ABG pCO2 POC ABG pO2 ABG pO2 ABG HCO3 ABG Base Excess ABG Hemoglobin ABG Oxyhemoglobin ABG Sodium ABG Potassium ABG Chloride ABG Glucose VBG pH Oxyhemoglobin Carboxyhemoglobin Sodium Potassium Chloride 109.9 H Carbon Dioxide 17 L BUN Creatinine Glucose POC Glucose Lactic Acid Calcium Ionized Calcium Magnesium AST ALT Alkaline Phosphatase Lactate Dehydrogenase NT-Pro-B Natriuret Pep Total Protein Albumin Arterial Blood Glucose Arterial Blood Ionized Calcium Urine WBC (Auto) Vancomycin Trough Phenytoin Crossmatch 10/15/20 10/16/20 10/17/20 05:50 11:57 04:57 WBC 15.2 H RBC 3.43 L Hgb Hct MCV MCH MCHC RDW 18.1 H Plt Count Lymph % (Auto) [place] % (Auto) Lymph # (Auto) [place] # (Auto) Baso # (Auto) Seg Neutrophils % Seg Neuts % (Manual) Lymphocytes % (Manual) Monocytes % (Manual) Nucleated RBC % Seg Neutrophils # Seg Neutrophils # Man Lymphocytes # (Manual) Monocytes # (Manual) PT INR APTT Fibrinogen D-Dimer ABG pH POC ABG pCO2 POC ABG pO2 ABG pO2 ABG HCO3 ABG Base Excess ABG Hemoglobin ABG Oxyhemoglobin ABG Sodium ABG Potassium ABG Chloride ABG Glucose VBG pH Oxyhemoglobin Carboxyhemoglobin Sodium Potassium Chloride 110.3 H Carbon Dioxide 18 L BUN Creatinine Glucose 105 H POC Glucose 111 H Lactic Acid Calcium 8.3 L Ionized Calcium Magnesium AST ALT Alkaline Phosphatase Lactate Dehydrogenase NT-Pro-B Natriuret Pep Total Protein Albumin Arterial Blood Glucose Arterial Blood Ionized Calcium Urine WBC (Auto) Vancomycin Trough Phenytoin Crossmatch 10/17/20 10/17/20 10/18/20 05:25 21:16 01:31 WBC RBC Hgb Hct MCV MCH MCHC RDW Plt Count Lymph % (Auto) [place] % (Auto) Lymph # (Auto) [place] # (Auto) Baso # (Auto) Seg Neutrophils % Seg Neuts % (Manual) Lymphocytes % (Manual) Monocytes % (Manual) Nucleated RBC % Seg Neutrophils # Seg Neutrophils # Man Lymphocytes # (Manual) Monocytes # (Manual) PT INR APTT Fibrinogen D-Dimer ABG pH POC ABG pCO2 POC ABG pO2 ABG pO2 ABG HCO3 ABG Base Excess ABG Hemoglobin ABG Oxyhemoglobin ABG Sodium ABG Potassium ABG Chloride ABG Glucose VBG pH Oxyhemoglobin Carboxyhemoglobin Sodium Potassium Chloride Carbon Dioxide BUN Creatinine Glucose POC Glucose 107 H 106 H 119 H Lactic Acid Calcium Ionized Calcium Magnesium AST ALT Alkaline Phosphatase Lactate Dehydrogenase NT-Pro-B Natriuret Pep Total Protein Albumin Arterial Blood Glucose Arterial Blood Ionized Calcium Urine WBC (Auto) Vancomycin Trough Phenytoin Crossmatch 10/18/20 10/18/20 10/19/20 05:45 11:23 01:14 WBC RBC Hgb Hct MCV MCH MCHC RDW Plt Count Lymph % (Auto) [place] % (Auto) Lymph # (Auto) [place] # (Auto) Baso # (Auto) Seg Neutrophils % Seg Neuts % (Manual) Lymphocytes % (Manual) Monocytes % (Manual) Nucleated RBC % Seg Neutrophils # Seg Neutrophils # Man Lymphocytes # (Manual) Monocytes # (Manual) PT INR APTT Fibrinogen D-Dimer ABG pH POC ABG pCO2 POC ABG pO2 ABG pO2 ABG HCO3 ABG Base Excess ABG Hemoglobin ABG Oxyhemoglobin ABG Sodium ABG Potassium ABG Chloride ABG Glucose VBG pH Oxyhemoglobin Carboxyhemoglobin Sodium Potassium Chloride Carbon Dioxide BUN Creatinine Glucose POC Glucose 106 H 115 H 108 H Lactic Acid Calcium Ionized Calcium Magnesium AST ALT Alkaline Phosphatase Lactate Dehydrogenase NT-Pro-B Natriuret Pep Total Protein Albumin Arterial Blood Glucose Arterial Blood Ionized Calcium Urine WBC (Auto) Vancomycin Trough Phenytoin Crossmatch 10/19/20 10/20/20 10/20/20 09:57 05:40 07:59 WBC RBC Hgb Hct MCV MCH MCHC RDW Plt Count Lymph % (Auto) [place] % (Auto) Lymph # (Auto) [place] # (Auto) Baso # (Auto) Seg Neutrophils % Seg Neuts % (Manual) Lymphocytes % (Manual) Monocytes % (Manual) Nucleated RBC % Seg Neutrophils # Seg Neutrophils # Man Lymphocytes # (Manual) Monocytes # (Manual) PT INR APTT Fibrinogen D-Dimer ABG pH POC ABG pCO2 POC ABG pO2 ABG pO2 ABG HCO3 ABG Base Excess ABG Hemoglobin ABG Oxyhemoglobin ABG Sodium ABG Potassium ABG Chloride ABG Glucose VBG pH Oxyhemoglobin Carboxyhemoglobin Sodium Potassium Chloride Carbon Dioxide BUN Creatinine Glucose 106 H POC Glucose 122 H 109 H Lactic Acid Calcium Ionized Calcium Magnesium AST ALT Alkaline Phosphatase Lactate Dehydrogenase NT-Pro-B Natriuret Pep Total Protein Albumin Arterial Blood Glucose Arterial Blood Ionized Calcium Urine WBC (Auto) Vancomycin Trough Phenytoin Crossmatch 10/20/20 10/20/20 10/21/20 16:52 16:52 13:54 WBC 18.8 H 17.0 H RBC Hgb Hct MCV MCH MCHC RDW 17.7 H 17.8 H Plt Count 547 H 544 H Lymph % (Auto) 11.2 L [place] % (Auto) 8.1 H Lymph # (Auto) [place] # (Auto) 1.5 H Baso # (Auto) 0.2 H Seg Neutrophils % 78.8 H Seg Neuts % (Manual) Lymphocytes % (Manual) Monocytes % (Manual) Nucleated RBC % Seg Neutrophils # 14.8 H Seg Neutrophils # Man Lymphocytes # (Manual) Monocytes # (Manual) PT INR APTT Fibrinogen D-Dimer ABG pH POC ABG pCO2 POC ABG pO2 ABG pO2 ABG HCO3 ABG Base Excess ABG Hemoglobin ABG Oxyhemoglobin ABG Sodium ABG Potassium ABG Chloride ABG Glucose VBG pH Oxyhemoglobin Carboxyhemoglobin Sodium Potassium Chloride Carbon Dioxide BUN Creatinine Glucose POC Glucose Lactic Acid Calcium Ionized Calcium Magnesium AST ALT Alkaline Phosphatase Lactate Dehydrogenase NT-Pro-B Natriuret Pep Total Protein Albumin Arterial Blood Glucose Arterial Blood Ionized Calcium Urine WBC (Auto) Vancomycin Trough 34.5 H Phenytoin Crossmatch 10/21/20 10/22/20 13:54 07:26 WBC 18.7 H RBC 3.64 L Hgb Hct MCV MCH MCHC RDW 17.7 H Plt Count 502 H Lymph % (Auto) [place] % (Auto) Lymph # (Auto) [place] # (Auto) Baso # (Auto) Seg Neutrophils % Seg Neuts % (Manual) Lymphocytes % (Manual) Monocytes % (Manual) Nucleated RBC % Seg Neutrophils # Seg Neutrophils # Man Lymphocytes # (Manual) Monocytes # (Manual) PT INR APTT Fibrinogen D-Dimer ABG pH POC ABG pCO2 POC ABG pO2 ABG pO2 ABG HCO3 ABG Base Excess ABG Hemoglobin ABG Oxyhemoglobin ABG Sodium ABG Potassium ABG Chloride ABG Glucose VBG pH Oxyhemoglobin Carboxyhemoglobin Sodium 136 L Potassium Chloride Carbon Dioxide BUN Creatinine Glucose 120 H POC Glucose Lactic Acid Calcium Ionized Calcium Magnesium AST ALT Alkaline Phosphatase Lactate Dehydrogenase NT-Pro-B Natriuret Pep Total Protein Albumin Arterial Blood Glucose Arterial Blood Ionized Calcium Urine WBC (Auto) Vancomycin Trough Phenytoin Crossmatch
[2020-10-22] MEDS: ENOXAPARIN 40 MG/0.4 ML INJ SUB-Q SCH (11:42)
[2020-10-22] MEDS: FAMOTIDINE 20 MG TAB PO SCH ×2 (11:43→22:56)
[2020-10-22] MEDS: TOPIRAMATE TAB 25 MG TAB PO SCH ×2 (11:43→22:55)
[2020-10-22] MEDS: FUROSEMIDE 40 MG TAB PO SCH (11:43)
[2020-10-22] MEDS: GLYCOPYRROLATE 1 MG TAB PO SCH ×2 (11:44→22:50)
--- NOTE | 2020-10-22 12:47 | Progress Note ---
Assessment and Plan Cultures: 10/05/2020 Blood culture: no growth 10/11/2020 blood culture: No growth 10/11/2020 tracheal aspirate: Usual respiratory jaylan 10/14/2020 blood culture: Enterobacter, coag negative staph. Sensitivities in "scanned reports" 10/15/2020 blood culture: negative A/P: 30-year-old female with GERD, hypertension, seizure disorder was admitted to the hospital at 36 weeks with seizures. She became hypoxic and pulseless requiring CPR. Following emergent section, patient developed hemorrhage, DIC. She has been admitted to ICU, remains on the vent: #Persistent fever, sepsis is likely secondary to bacteremia: ?PICC, no acute intra-abdominal source noted on CT #Status post arrest 10/07/2020: Apparently had a brief code due to ?ET tube clot/plugging. #Initial shock, DIC/persistent fever: Secondary to hemorrhage, ?possible sepsis. Possible pneumonia versus fluid overload. ?Central fever v/s from VTE. Noted diarrhea ? Cdiff #Acute kidney injury: resolved #Acute respiratory failure: remains on the vent. #Transaminitis: ?HELLP. Improving. #Preeclampsia # hemorrhage: Status post , status post supracervical hysterectomy. #Encephalopathy post cardiac arrest: Neurology on board. #C. difficile: On oral vancomycin Recs: -New PICC was placed after the most recent (negative) cultures were obtained. -Follow-up JOSHUA of blood cultures -Cefepime should be effective against Enterobacter, however she remains with an elevated white count. -de-esclated back to cefepime given sensitivity results. Added metronidazole. -Completed p.o. Vanco -Follow up CT abdomen pelvis given Enterobacter which is enteric pathogen to rule out any source control issues. Julee Oneill MD [facility] ([facility] O: [phone] F: [phone] Subjective Date of service: 10/22/20 Principal diagnosis: Eclampsia/HELLP Syndrome, ADOLPH, DIC; s/p , s/p supracervical hyst Interval history: Afebrile, white count remains normal. No new changes, remains mechanically ventilated. Objective - Exam Narrative Exam: Constitutional: awake, intubated, on the vent Head, Ears, Nose: Normocephalic, atraumatic. Eyes: Conjunctivae/corneas clear. No icterus.. Neck: trach Oral: MMM Cardiovascular: S1, S2 + Respiratory: AE fair bilaterally and equal GI: Soft, bowel sounds +. lower abdominal incision present with dressing Musculoskeletal: edematous extremities, no cyanosis. Skin: No rash or abscess Hem/Lymphatic: No palpable cervical or supraclavicular nodes. Psych: no agitation Neurological: awake, doesn't follow commands, but opens eyes, intubated, on the vent, exam limited - Constitutional Vitals: Vital Signs Temp Pulse Resp BP Pulse Ox 99.5 F 96 H 23 161/64 100 10/22/20 08:00 10/22/20 11:00 10/22/20 08:00 10/22/20 11:00 10/22/20 08:00 Temperature -Last 24 Hours Temperature 99.5 F Temperature 98.8 F Temperature 99.9 F Temperature 99.4 F Temperature 99.2 F - Labs CBC & Chem 7: 10/22/20 07:26 10/21/20 13:54 Labs: Abnormal lab results 10/21/20 10/21/20 10/22/20 Range/Units 13:54 13:54 07:26 WBC 17.0 H 18.7 H (4.5-11.0) K/mm3 RBC 3.64 L (3.65-5.03) M/mm3 RDW 17.8 H 17.7 H (13.2-15.2) % Plt Count 544 H 502 H (140-440) K/mm3 Sodium 136 L (137-145) mmol/L Glucose 120 H (65-100) mg/dL
--- NOTE | 2020-10-22 12:55 | Progress Note ---
Assessment and Plan Assessment and plan: 30 year old -[place] female CHE 10/25/20 at 36w5d who presents with seizures in triage on 10/02/20. Pt was not able to provide history but per pt's , she presented to the hospital to return a 24 hour urine specimen for analysis. She then suddenly reported that she did not feel good. She was taken to labor and delivery and shortly after arrival, she began seizing. During this time, a code met was called because the patient became hypoxic. She was then noted to be without a pulse. Chest compressions were started immediately, and the patient was emergently taken to the operating room for delivery of the fetus. Off note, This patient has had care at [facility] with comanagement by [facility] since 11 wks complicated by ADHD, morbid obesity, generalized anxiety disorder, panic attacks, chronic narcotic use, fibromyalgia, GERD, Irritable Bowel Syndrome, Migraines, h/o endometrial ablation and ovarian vein embolization, genital herpes, insomnia, LGA fetus, nausea and vomiting, polyhydramnios, quad screen positive for Down's Syndrome, and previous x 3. She is GBS negative. Acute respiratory failure with hypoxia Sepsis Preeclampsia Cardiac arrest DIC (disseminated intravascular coagulation) Shock ADOLPH (acute kidney injury) Acute Metabolic Encephalopathy ?Hypoxic DVT SVT in the RUE 11:30: Pt brought to L&D triage for evaluation of possible labor. Pt accompanied by her spouse. Pt spouse poor historian; unable to obtain history- allergies at this time. Pt taken from registration to triage area via WC. Pt unresponsive, actively seizing with snorous respirations. mortgage operations manager, Kassy, called and requesting assistance. 11:35: Multiple staff at bedside. Pt 02 sat 67% on nonrebreather, unable to read BP at this time. Yifan Theodore CRNA, at bedside for intubation and assistance with IV insertion. INT attempt by multiple RNs unsuccessful at this time. 11:42: Pt being bagged by KORIN, 02% 79%. No pulse palpated, compressions started at this time; bharati young called and Dr. Newberry preparing OR for emergent c/s. 11:44: Continued compressions on stretcher while transporting pt to OR 1. Pt being bagged with jaw thrust manuever in place by KORIN Stringer student. 11:45: Arrival to OR 1. Dr. Newberry and Dr. Portillo present for emergent c/s. Code team arrived for continued care. patient revived and c/s done Patient has been bleeding from C/s site followed by supracervical hysterectomy for severe bleeding Patient transfused multiple units of PRBC, Patient in DIC. Transferred to the ICU 10/03. Patient seen and examined at bedside this morning. Patient is nonresponsive and mechanically ventilated. On pressors. Labs reviewed-has leukocytosis, anemia, thrombocytopenia, ADOLPH and lactic acidosis. Started on IV antibiotics to cover possible sepsis secondary to DIC. Hematology oncology recommendations appreciated-needs additional cryoprecipitate and FFP. Monitor D-dimer, fibrinogen and frequent labs. Nephrology consulted for lactic acidosis and ADOLPH. 10/04. Remains mechanically ventilated. Morven antibiotics. Labs shows improved acidosis - lactic acid 3.5. Hb drop noted. Getting transfused 2 units PRBCs. Platelet count is ~40k. Continue to monitor labs closely. Critical care team on board. 10/05; xray reviewed, concerning for multifocal infilrate, likely underlying Pneumonia, will add ID consult to assist with management of this critically ill patient, start tube feed, closely monitor renal system 10/06: Resumed care, remains on mechanical ventilation. No active bleeding, H&H stable. Continue to monitor CBC and BMP. Continue IV antibiotic for underlying pneumonia. Follow critical care and ID recommendation. 10/07: Remains on mechanical ventilation. No active bleeding, H&H stable. Critical care following, wean off ventilation as tolerated. 10/08: Patient had another cardiac arrest last night. Remains on mechanical ventilation, update family. Continue supportive care -poor prognosis 10/09: Called patient mother and discussed about patient care and management. Answered all question to best of my knowledge and family satisfaction. Patient remains on mechanical ventilation, cardiac arrest x2 so far. Critically sick, poor prognosis 10/10: remains on mechanical ventilation. h/h stable, no active bleeding. monitor CBC/BMP 10/11: WBC trended up with diarrhea, started on vancomycin po. remains on MV, off pressor, tolerating TF 10/12: remains on MV, off pressor, tolerating TF. called family for update but unable to reach, could not leave message as it was full. cont supportive care, wean off vent as tolerated. 10/13/2020; patient is on mechanical ventilation, tolerating tube feeding. Patient has labored breathing. Neuro was consulted and recommend MRI. Patient is on Precedex. Rectal tube in place. 10/14/2020; patient is on mechanical ventilation, Precedex. Patient had fever and blood culture ordered. Patient is on IV vancomycin per ID recommendation. Neuro consulted and recommend MRI. Continue to monitor. Prognosis is guarded. 10/15/2020; patient is on mechanical ventilation, Precedex. Patient had fever and blood culture ordered. Patient is on IV vancomycin per ID recommendation. Neuro consulted and recommend MRI. Continue to monitor. Prognosis is guarded. 1: Remains with C.DIFF and Bactermia, Poor prognosis. No purposeful movement. MRI and EEG discussed with Intensvisit, Continue aggressive BP control. 10/18: Blood pressure better controlled MRI done 10/15 shows mild improvement in edema. We will continue to monitor mother was at bedside yesterday. Nursing documentation trach and PEG discussed with the mother including goals of care. She is still in denial about the gravity of her daughters her condition which is understandable considering her age. Continue aggressive management at this time. Await for bacteremia to clear by ID before placing PICC line. 10/19: Patient for possible PEG and Trach, ID following, repeat cultures remain negative. Poor prognosis 10/20: Pt noted to DVT and SVT in the RUE, Vascular consult and will also obtain Hematology for possible considering changing in Anticoagulation. CONTINUE TO MONITOR H/H and PLT. Family updated by Intensivit. Heparin gtt started. Will check CBC and BMP 10/21: Continue supporive care, Diarrhea now resolving, But still with persistent Fever, May need repeat CT/AP per ID, still with profused Encephalopathy 10/22: Continue supportive care, weaning, awaiting repeat Imaging. FOLLOW Fever curve. Enoxparin restarted The high probability of a clinically significant, sudden or life threatening deterioration of the [MULTIPLE ORGAN] system(s) required my full and direct attention, intervention and personal management. The aggregate critical care time was [35] minutes. This time is in addition to time spent performing reported procedures but includes the following: [X] Data Review and interpretation [X] Patient assessment and monitoring of vital signs [X] Documentation [X] Medication orders and management History Interval history: Patient seen and examined, remains critical ill on the ventilator. She is s/p Trach and PEG. Hospitalist Physical - Physical exam Narrative exam: VITAL SIGNS: Reviewed. GENERAL: Intubated HEAD: No signs of head trauma. Opens her eyes but no purposeful movement EYES: Pupils are equal. MOUTH: clear NECK: No adenopathy, no JVD. Trach CHEST: Rales posteriorly CARDIAC: normal S1 and S2, without murmurs, gallops, or rubs. ABDOMEN: PEG, Soft, non tender and non distended. surgical wound in tact, No rebound or guarding, and no masses palpated. Bowel Sounds normal. AVINASH drain intact with bloody fluid MUSCULOSKELETAL: No edema NEUROLOGIC EXAM: Intubated SKIN: No obvious lesions - Constitutional Vitals: Temp Pulse Resp BP Pulse Ox 99.5 F 96 H 23 161/64 100 10/22/20 08:00 10/22/20 11:00 10/22/20 08:00 10/22/20 11:00 10/22/20 08:00 General appearance: Present: other (Intubated, noncommunicative, does not try to respond) HEART Score - HEART Score Age: < 45 Risk factors: 1-2 risk factors - Critical Actions Critical Actions: >7 pts:50-65% risk of adverse cardiac event. Early invasive measures Results - Labs CBC & Chem 7: 10/22/20 07:26 10/21/20 13:54 Labs: Laboratory Last Values WBC 18.7 K/mm3 (4.5-11.0) H 10/22/20 07:26 RBC 3.64 M/mm3 (3.65-5.03) L 10/22/20 07:26 Hgb 10.5 gm/dl (10.1-14.3) 10/22/20 07:26 Hgb Comment See scanned result 10/04/20 Unknown Hct 31.0 % (30.3-42.9) 10/22/20 07:26 MCV 85 fl (79-97) 10/22/20 07:26 MCH 29 pg (28-32) 10/22/20 07:26 MCHC 34 % (30-34) 10/22/20 07:26 RDW 17.7 % (13.2-15.2) H 10/22/20 07:26 Plt Count 502 K/mm3 (140-440) H 10/22/20 07:26 Lymph % (Auto) 11.2 % (13.4-35.0) L 10/20/20 16:52 [place] % (Auto) 8.1 % (0.0-7.3) H 10/20/20 16:52 Eos % (Auto) 0.8 % (0.0-4.3) 10/20/20 16:52 Baso % (Auto) 1.1 % (0.0-1.8) 10/20/20 16:52 Lymph # (Auto) 2.1 K/mm3 (1.2-5.4) 10/20/20 16:52 [place] # (Auto) 1.5 K/mm3 (0.0-0.8) H 10/20/20 16:52 Eos # (Auto) 0.2 K/mm3 (0.0-0.4) 10/20/20 16:52 Baso # (Auto) 0.2 K/mm3 (0.0-0.1) H 10/20/20 16:52 Add Manual Diff Complete 10/15/20 05:50 Total Counted 100 10/15/20 05:50 Seg Neutrophils % 78.8 % (40.0-70.0) H 10/20/20 16:52 Seg Neuts % (Manual) 90.0 % (40.0-70.0) H 10/15/20 05:50 Band Neutrophils % 2.0 % 10/15/20 05:50 Lymphocytes % (Manual) 4.0 % (13.4-35.0) L 10/15/20 05:50 Reactive Lymphs % (Man) 1.0 % 10/02/20 12:18 Monocytes % (Manual) 4.0 % (0.0-7.3) 10/15/20 05:50 Eosinophils % (Manual) 1.0 % (0.0-4.3) 10/14/20 04:00 Myelocytes % 2.0 % 10/02/20 13:05 Metamyelocytes % 1.0 % 10/14/20 04:00 Nucleated RBC % Not Reportable 10/15/20 05:50 Seg Neutrophils # 14.8 K/mm3 (1.8-7.7) H 10/20/20 16:52 Seg Neutrophils # Man 20.9 K/mm3 (1.8-7.7) H 10/15/20 05:50 Band Neutrophils # 0.5 K/mm3 10/15/20 05:50 Lymphocytes # (Manual) 0.9 K/mm3 (1.2-5.4) L 10/15/20 05:50 Abs React Lymphs (Man) 0.0 K/mm3 10/15/20 05:50 Monocytes # (Manual) 0.9 K/mm3 (0.0-0.8) H 10/15/20 05:50 Eosinophils # (Manual) 0.0 K/mm3 (0.0-0.4) 10/15/20 05:50 Basophils # (Manual) 0.0 K/mm3 (0.0-0.1) 10/15/20 05:50 Metamyelocytes # 0.0 K/mm3 10/15/20 05:50 Myelocytes # 0.0 K/mm3 10/15/20 05:50 Promyelocytes # 0.0 K/mm3 10/15/20 05:50 Blast Cells # 0.0 K/mm3 10/15/20 05:50 WBC Morphology Not Reportable 10/15/20 05:50 Hypersegmented Neuts Not Reportable 10/15/20 05:50 Hyposegmented Neuts Not Reportable 10/15/20 05:50 Hypogranular Neuts Not Reportable 10/15/20 05:50 Smudge Cells Not Reportable 10/15/20 05:50 Toxic Granulation Not Reportable 10/15/20 05:50 Toxic Vacuolation Not Reportable 10/15/20 05:50 Dohle Bodies Not Reportable 10/15/20 05:50 Pelger-Huet Anomaly Not Reportable 10/15/20 05:50 Ester Rods Not Reportable 10/15/20 05:50 Platelet Estimate Consistent w auto 10/15/20 05:50 Clumped Platelets Not Reportable 10/15/20 05:50 Plt Clumps, EDTA Not Reportable 10/15/20 05:50 Large Platelets Not Reportable 10/15/20 05:50 Giant Platelets Not Reportable 10/15/20 05:50 Platelet Satelliting Not Reportable 10/15/20 05:50 Plt Morphology Comment Not Reportable 10/15/20 05:50 RBC Morphology Not Reportable 10/15/20 05:50 Dimorphic RBCs Not Reportable 10/15/20 05:50 Polychromasia Not Reportable 10/15/20 05:50 Hypochromasia Few 10/15/20 05:50 Poikilocytosis Not Reportable 10/15/20 05:50 Anisocytosis 1+ 10/15/20 05:50 Microcytosis Not Reportable 10/15/20 05:50 Macrocytosis Not Reportable 10/15/20 05:50 Spherocytes Not Reportable 10/15/20 05:50 Pappenheimer Bodies Not Reportable 10/15/20 05:50 Sickle Cells Not Reportable 10/15/20 05:50 Target Cells Not Reportable 10/15/20 05:50 Tear Drop Cells Not Reportable 10/15/20 05:50 Ovalocytes Not Reportable 10/15/20 05:50 Stomatocytes Few 10/14/20 04:00 Helmet Cells Not Reportable 10/15/20 05:50 [place] Bodies Not Reportable 10/15/20 05:50 [place] Rings Not Reportable 10/15/20 05:50 Antoine Cells Not Reportable 10/15/20 05:50 Bite Cells Not Reportable 10/15/20 05:50 Crenated Cell Not Reportable 10/15/20 05:50 Elliptocytes Not Reportable 10/15/20 05:50 Acanthocytes (Spur) Not Reportable 10/15/20 05:50 Rouleaux Not Reportable 10/15/20 05:50 Hemoglobin C Crystals Not Reportable 10/15/20 05:50 Schistocytes Not Reportable 10/15/20 05:50 Malaria parasites Not Reportable 10/15/20 05:50 Sickle Cell Solubility See scanned result 10/04/20 Unknown Hemoglobin A See scanned result 10/04/20 Unknown Hemoglobin A2 See scanned result 10/04/20 Unknown Hemoglobin A2 Prime See scanned result 10/04/20 Unknown Hemoglobin C See scanned result 10/04/20 Unknown Hemoglobin D See scanned result 10/04/20 Unknown Hemoglobin E See scanned result 10/04/20 Unknown Hgb F Diffential Stain See scanned result 10/04/20 Unknown Hemoglobin F Quant See scanned result 10/04/20 Unknown Hemoglobin G See scanned result 10/04/20 Unknown Hemoglobin S See scanned result 10/04/20 Unknown Hemoglobin O-[place] See scanned result 10/04/20 Unknown Hemoglobin [place] See scanned result 10/04/20 Unknown Hemoglobin Analilia See scanned result 10/04/20 Unknown Variant Hemoglobin See scanned result 10/04/20 Unknown Abnorm Hgb IEF Confirm See scanned result 10/04/20 Unknown Hemoglobin Interpret See scanned result 10/04/20 Unknown Hemoglobinopathy Note See scanned result 10/04/20 Unknown Sharad Bodies Not Reportable 10/15/20 05:50 Hem Pathologist Commnt No 10/15/20 05:50 PT 13.6 Sec. (12.2-14.9) 10/21/20 13:54 INR 1.06 (0.87-1.13) 10/21/20 13:54 APTT 31.6 Sec. (24.2-36.6) 10/03/20 00:40 Fibrinogen 336 mg/dl (211-480) 10/04/20 10:00 D-Dimer > 64359 ng/mlDDU (0-234) H 10/04/20 10:00 ABG pH 7.473 (7.320-7.450) H 10/13/20 07:18 POC ABG pCO2 20.7 mmHg (32.0-48.0) L 10/13/20 07:18 ABG pCO2 25.0 mm Hg 10/10/20 04:42 POC ABG pO2 137.9 mmHg (83-108) H 10/13/20 07:18 ABG pO2 95.2 mm Hg (80.0-90.0) H 10/10/20 04:42 POC ABG HCO3 14.8 10/13/20 07:18 ABG HCO3 20.6 mmol/L (20.0-26.0) 10/10/20 04:42 ABG O2 Saturation 97.9 % (95.0-99.0) 10/10/20 04:42 ABG O2 Content 15.4 (0.0-44) 10/10/20 04:42 POC ABG Base Excess -6.9 10/13/20 07:18 ABG Base Excess -0.8 mmol/L (-2.0-3.0) 10/10/20 04:42 ABG Hemoglobin 11.2 (12.0-17.5) L 10/13/20 07:18 ABG Oxyhemoglobin 98.3 (94-98) H 10/13/20 07:18 ABG Carboxyhemoglobin 1.4 % (0.0-5.0) 10/10/20 04:42 ABG Methemoglobin 0.3 (0.0-1.5) 10/13/20 07:18 ABG Sodium 135.9 mmol/L (136.0-145.0) L 10/13/20 07:18 ABG Potassium 3.7 mmol/L (3.40-4.50) 10/13/20 07:18 ABG Chloride 111.0 mmol/L (98-107) H 10/13/20 07:18 ABG Glucose 109 mg/dL (65-95) H 10/13/20 07:18 VBG pH 6.949 (7.320-7.420) L* 10/02/20 Unknown Oxyhemoglobin 95.9 % (95.0-99.0) 10/10/20 04:42 Carboxyhemoglobin 0.3 (0.5-1.5) L 10/13/20 07:18 FiO2 30.0 10/13/20 07:18 Sodium 136 mmol/L (137-145) L 10/21/20 13:54 Potassium 4.7 mmol/L (3.6-5.0) 10/21/20 13:54 Chloride 102.6 mmol/L (98-107) 10/21/20 13:54 Carbon Dioxide 22 mmol/L (22-30) 10/21/20 13:54 Anion Gap 16 mmol/L 10/21/20 13:54 BUN 15 mg/dL (7-17) 10/21/20 13:54 Creatinine 0.6 mg/dL (0.6-1.2) 10/21/20 13:54 Estimated GFR > 60 ml/min 10/21/20 13:54 BUN/Creatinine Ratio 25 % 10/21/20 13:54 Glucose 120 mg/dL (65-100) H 10/21/20 13:54 POC Glucose 105 mg/dL (70-105) 10/22/20 05:21 Lactic Acid 1.90 mmol/L (0.7-2.0) 10/04/20 22:00 Uric Acid 7.5 mg/dL (3.5-7.6) 10/02/20 13:05 Calcium 9.5 mg/dL (8.4-10.2) 10/21/20 13:54 Ionized Calcium 4.4 mg/dL (4.8-5.6) L 10/07/20 21:00 Phosphorus 4.00 mg/dL (2.5-4.5) 10/20/20 07:59 Magnesium 1.80 mg/dL (1.7-2.3) 10/20/20 07:59 Total Bilirubin 0.90 mg/dL (0.1-1.2) 10/10/20 04:00 AST 122 units/L (5-40) H 10/10/20 04:00 ALT 81 units/L (7-56) H 10/10/20 04:00 Alkaline Phosphatase 94 units/L (35-129) 10/10/20 04:00 Lactate Dehydrogenase 769 units/L (91-180) H 10/02/20 13:05 NT-Pro-B Natriuret Pep 2788 pg/mL (0-450) H 10/04/20 10:00 Total Protein 5.2 g/dL (6.3-8.2) L 10/10/20 04:00 Albumin 2.7 g/dL (3.9-5) L 10/10/20 04:00 Albumin/Globulin Ratio 1.1 % 10/10/20 04:00 Procalcitonin 0.58 ng/mL (<0.15) 10/11/20 15:33 Arterial Blood Glucose 109 mg/dL (65-95) H 10/13/20 07:18 Arterial Blood Ionized Calcium 4.6 mg/dL (4.6-5.3) 10/13/20 07:18 Urine Color Yellow (Yellow) 10/11/20 13:26 Urine Turbidity Clear (Clear) 10/11/20 13:26 Urine pH 7.0 (5.0-7.0) 10/11/20 13:26 Ur Specific [place] 1.014 (1.003-1.030) 10/11/20 13:26 Urine Protein 100 mg/dl mg/dL (Negative) 10/11/20 13:26 Urine Glucose (UA) Neg mg/dL (Negative) 10/11/20 13:26 Urine Ketones Neg mg/dL (Negative) 10/11/20 13:26 Urine Blood Mod (Negative) 10/11/20 13:26 Urine Nitrite Neg (Negative) 10/11/20 13:26 Urine Bilirubin Neg (Negative) 10/11/20 13:26 Urine Urobilinogen < 2.0 mg/dL (<2.0) 10/11/20 13:26 Ur Leukocyte Esterase Sm (Negative) 10/11/20 13:26 Urine WBC (Auto) 24.0 /HPF (0.0-6.0) H 10/11/20 13:26 Urine RBC (Auto) 59.0 /HPF (0.0-6.0) 10/11/20 13:26 Urine Bacteria (Auto) 1+ /HPF (Negative) 10/11/20 13:26 Urine Mucus Few /HPF 10/11/20 13:26 Vancomycin Trough 12.6 ug/mL (5.0-20.0) 10/21/20 13:54 Random Vancomycin 10.7 ug/mL (0-40.0) 10/16/20 13:09 Phenytoin 5.7 ug/mL (10.0-20.0) L 10/13/20 07:00 C. difficile Tox (PCR) Positive (Negative) 10/16/20 10:22 Coronavirus (PCR) Negative (Negative) 10/08/20 14:15 Blood Type O POSITIVE 10/02/20 12:50 Antibody Screen Negative 10/02/20 12:50 Crossmatch See Detail 10/02/20 12:50 Microbiology: Microbiology 10/14/20 14:57 Peripheral/Venous Blood Culture - Preliminary Enterobacter Cloacae Coag Negative Staphylococcus 10/14/20 14:57 Peripheral/Venous Blood Culture - Preliminary Enterobacter Cloacae Coag Negative Staphylococcus - Diagnostic Impressions Diagnostic Impressions: Echocardiogram 10/03/20 13:42 Transthoracic Echocardiogram Indication: S/P Cardiac Arrest R/O Cardiomyopathy BP: 133/71 Conclusions *Global left ventricular systolic function is normal. *The estimated ejection fraction is 60-65%. *There is trace of mitral regurgitation. *The right 0heart chambers are both slightly dilated. *There is mild tricuspid regurgitation. *There is mild-moderate pulmonary hypertension. *The right ventricular systolic pressure is calculated at 44 mmHg. *The study quality is technically difficult. Findings Procedure Info: The study quality is technically difficult. The study is technically limited due to patient body habitus. The study was technically limited due to the patient's inability to lay in the left lateral decubitus position. Left Ventricle: The left ventricular chamber size is normal. There is no left ventricular hypertrophy. Global left ventricular systolic function is normal. The estimated ejection fraction is 60-65%. Left Atrium: The left atrial chamber size is normal. Right Ventricle: The right ventricle is slightly dilated. Right Atrium: The right atrium is mildly dilated. Aortic Valve: The aortic valve leaflets are mildly thickened. There is no evidence of aortic regurgitation. There is no evidence of aortic stenosis. Mitral Valve: The mitral valve leaflets are mildly thickened. There is trace of mitral regurgitation. There is no evidence of mitral stenosis. Tricuspid Valve: There is mild tricuspid regurgitation. The right ventricular systolic pressure is calculated at 44 mmHg. There is evidence of mild pulmonary hypertension. Pulmonic Valve: There is trace pulmonic regurgitation. Pericardium: There is no pericardial effusion. Aorta: There is no dilatation of the ascending aorta. There is no dilatation of the aortic root. Venous: The inferior vena cava is dilated. Measurements Chambers 2D Name Value Normal Range IVSd (2D) 1 cm (0.6 - 1.1) LVPWd (2D) 1.01 cm (0.6 - 1.1) LVIDd (2D) 4.58 cm (3.7 - 5.6) LVIDs (2D) 3.17 cm (2 - 3.8) LV FS (2D) 30.93 % - EF Teichholz (2D) 58.66 % - Ao root diameter (2D) 2.94 cm (2 - 3.7) Volumes/Mass Name Value Normal Range LA ESV SP 4CH (A/L) 72.82 ml - LA ESV SP 2CH (A/L) 66.86 ml - LA ESV BP (A/L) 74.49 ml - LA ESV SP 4CH (MOD) 71.03 ml - LA ESV SP 2CH (MOD) 64.3 ml - LV EDV SP 4CH (MOD) 98.82 ml - LV ESV SP 4CH (MOD) 24.8 ml - EF SP 4CH (MOD) 74.9 % - LV EDV SP 2CH (MOD) 86.1 ml - LV ESV SP 2CH (MOD) 36.93 ml - EF SP 2CH (MOD) 57.11 % - LV EDV BP 94.4 ml - LV ESV BP 32.66 ml - BP EF (MOD) 65.4 % - Diastolic/Systolic Function Name Value Normal Range MV E-wave Vmax 1.04 m/sec - MV deceleration time 160.46 msec - MV A-wave Vmax 0.92 m/sec - MV E:A ratio 1.14 ratio - Aortic Valve Name Value Normal Range AV Vmax 2.12 m/sec - AV VTI 22.37 cm - AV peak gradient 17.95 mmHg - AV mean gradient 7.29 mmHg - LVOT diameter 2.01 cm - LVOT Vmax 1.8 m/sec - LVOT VTI 27.17 cm - LVOT peak gradient 12.91 mmHg - LVOT mean gradient 6.83 mmHg - SV LVOT 86.42 ml - ANITA (continuity Vmax) 2.7 cm2 - ANITA (continuity VTI) 3.86 cm2 - Ascending Ao 3.18 cm - Tricuspid Valve Name Value Normal Range TV E-wave Vmax 0.88 m/sec - TR Vmax 3.01 m/sec - TR peak gradient 36.27 mmHg - RAP 8 mmHg - RVSP 44 mmHg - IVC diameter 2.65 cm (1.2 - 2.3) Pulmonic Valve/Qp:Qs Name Value Normal Range PV Vmax 1.22 m/sec - PV peak gradient 5.91 mmHg - RVOT Vmax 0.87 m/sec - RVOT VTI 13.32 cm - RVOT peak gradient 3 mmHg - PV acceleration time 110.37 msec - [place]/IV: Voiding Method Indwelling Catheter IV Catheter Type [Left Forearm Peripheral IV ] IV Catheter Type [Left Wrist] INT / Saline Lock IV Catheter Type [Right Hand] INT / Saline Lock IV Catheter Type [Right INT / Saline Lock Antecubital] IV Catheter Type [Right Upper PICC Line arm] IV Catheter Type [Left Triple Lumen Cath Internal Jugular] IV Catheter Type [Left Hand] Peripheral IV IV Catheter Type [Left Peripheral IV Antecubital] Active Medications - Current Medications Current Medications: Generic Name Dose Route Start Last Admin Trade Name Freq PRN Reason Stop Dose Admin Acetaminophen 650 mg 10/05/20 16:34 10/16/20 00:13 Acetaminophen 325 Mg/10.15 Ml Oral Liqd Unit Dose FEEDTUBE 650 mg Q6H PRN Administration Non Cardiac Pain or Temp>100.5 Albuterol/Ipratropium 1 ampul 10/10/20 20:00 10/22/20 07:28 Ipratropium/Albuterol Sulfate 3 Ml Ampul.Neb IH 1 ampul Q8HRT ERINN Administration Lipase/Protease/Amylase 1 each 10/05/20 11:09 Lipase 10,500/Protease 25,000/Amylase 43,750 (Units) Dr Barakat FEEDTUBE PRN PRN For Clogged Feeding Tube Enoxaparin Sodium 40 mg 10/22/20 10:00 10/22/20 11:42 Enoxaparin 40 Mg/0.4 Ml Inj SUB-Q 40 mg DAILY ERINN Administration Protocol Famotidine 20 mg 10/07/20 10:00 10/22/20 11:43 Famotidine 20 Mg Tab PO 20 mg BID ERINN Administration Furosemide 40 mg 10/17/20 10:00 10/22/20 11:43 Furosemide 40 Mg Tab PO 40 mg QDAY ERINN Administration Glycopyrrolate 1 mg 10/20/20 10:00 10/22/20 11:44 Glycopyrrolate 1 Mg Tab PO 1 mg BID ERINN Administration Hydralazine HCl 20 mg 10/07/20 11:49 10/17/20 07:20 Hydralazine 20 Mg/1 Ml Inj IV 20 mg Q6H PRN Administration SBP >170 Hydralazine HCl 50 mg 10/17/20 09:00 10/22/20 05:53 Hydralazine 25 Mg Tab PO 50 mg Q8HR ERINN Administration Hydrophilic Ointment 1 applic 10/04/20 06:55 Lip Therapy Vaseline TP Q2HR PRN Dry Lips Dextrose 1,000 mls @ 75 mls/hr 10/13/20 11:00 10/21/20 21:35 D10w IV 75 mls/hr DIRECT ERINN Administration Vancomycin HCl 1,750 mg/ 535 mls @ 333.333 mls/hr 10/20/20 02:00 10/22/20 01:38 Sodium Chloride IV 333.333 mls/hr Q12H ERINN Administration Cefepime HCl 2 gm in 100 mls @ 200 mls/hr 10/22/20 13:00 Cefepime/Ns 2 Gm/100 Ml IV Q8H ERINN Protocol Metronidazole 500 mg in 100 mls @ 100 mls/hr 10/22/20 13:00 Flagyl 500 Mg/100 Ml IV Q8H ERINN Protocol Labetalol HCl 300 mg 10/17/20 09:00 10/22/20 11:00 Labetalol 100 Mg Tab PO 300 mg TID ERINN Administration Multi-Ingred Cream/Lotion/Oil/Oint 1 applic 10/04/20 06:55 Mineral Oil/Petrolatum, White Ophth Oint 3.5 Gm OU Q4HR PRN Dry Eye(s) Simple Syrup 15 ml 10/05/20 11:09 Simple Syrup 15 Ml FEEDTUBE PRN PRN Hypoglycemia Simple Syrup 30 ml 10/05/20 11:09 Simple Syrup 15 Ml FEEDTUBE PRN PRN Hypoglycemia Sodium Bicarbonate 325 mg 10/05/20 11:09 Sodium Bicarbonate 325 Mg Tab FEEDTUBE PRN PRN For Clogged Feeding Tube Sodium Bicarbonate 1,300 mg 10/13/20 14:00 10/21/20 21:13 Sodium Bicarbonate 650 Mg Tab PO 1,300 mg TID ERINN Administration Topiramate 50 mg 10/05/20 11:00 10/22/20 11:43 Topiramate Tab 25 Mg Tab PO 50 mg Q12HR ERINN Administration Nutrition/Malnutrition Assess - Dietary Evaluation Nutrition/Malnutrition Findings: Nutrition Notes Start: 10/04/20 11:13 Freq: Status: Active Protocol: Document 10/21/20 12:46 AB (Rec: 10/21/20 13:46 AB [id number]) Co-Sign 10/21/20 12:46 NHALL Nutrition Notes Initial or Follow up Reassessment Current Diagnosis Acute Kidney Injury, Respiratory Failure Other Pertinent Diagnosis Cardiac arrest, s/p c-sectuion and supracervial hysterectomy Current Diet Vital AF 1.2 at 65ml/hr Labs/Tests Reviewed Pertinent Medications Reviewed Height 5 ft 8 in Weight 118.3 kg [place] Body Weight (kg) 63.63 BMI 39.6 Weight Status Morbidly Obese Subjective/Other Information MD consult for write/manage TF . Pt had PEG placed. Percent of energy/protein needs met: 0%/0% Burn Absent Trauma Absent GI Symptoms None Food Allergy Yes Current % PO Negligible Minimum of two criteria No Fluid Accumulation Mild (non-severe) #1 Nutrition Diagnosis Inadequate oral intake Diagnosis Progress(for reassessment Continues documentation) Is patient on ventilator? Yes Is Patient Ambulatory and/or Out of Bed No REE-(Ogle-St. Jeor-confined to bed) 2331.456 Kcal/Kg value to use for calculation 15 Approximate Energy Requirements Using 1775 kcal/Kg Calculation Used for Recommendations Kcal/kg Additional Notes Protein needs are up to 159g ( up to 2.5g/kg) Fluid needs are 1ml/kcal Nutrition Intervention Change Diet Order: Continue TF Nutrition Support: Vital AF 1.2 at 65 ml/hr. Flush with 100 ml q4h Kcal 1,872 Protein (gm) 117 Fluid (mL) 1,265 Goal #1 Meet at least 75% of energy and protein needs via TF Anticipated Discharge Needs: Unable to determine at this time Follow-Up By: 10/23/20 Additional Comments F/U for TF start/rate
--- NOTE | 2020-10-22 13:16 | Progress Note ---
Assessment and Plan 30-year-old female status post percutaneous tracheostomy, fiberoptic bronchoscopy, PEG tube placement, postop day 1 Plan: 1. vent weaning per critical care team 2. Trach care as per protocol 3. TF via PEG as tolerated 4. may resume lovenox today 5. will s/o Thank you, please call with any questions or concerns. Evaluation and treatment of this patient was during the time of the national and state emergency arising from COVID19 coronavirus pandemic. Treatment and procedures performed meet the current and available best practice and guidelines for patient during the COVID pandemic. Subjective Date of service: 10/22/20 Narrative: Patient seen and examined. No overnight events. Tolerating tube feeds via PEG. Objective Vital Signs - 12hr 10/22/20 10/22/20 10/22/20 01:16 01:30 01:46 Temperature Pulse Rate 109 H 106 H 102 H Pulse Rate [ Anterior Bilateral Throughout] Pulse Rate [ From Monitor] Respiratory 29 H 22 23 Rate Respiratory Rate [Anterior Bilateral Throughout] Blood Pressure 138/68 127/68 127/68 O2 Sat by Pulse 98 98 98 Oximetry 10/22/20 10/22/20 10/22/20 02:00 02:16 02:30 Temperature Pulse Rate 109 H 103 H 97 H Pulse Rate [ Anterior Bilateral Throughout] Pulse Rate [ From Monitor] Respiratory 23 16 22 Rate Respiratory Rate [Anterior Bilateral Throughout] Blood Pressure 132/88 132/88 122/68 O2 Sat by Pulse 98 99 99 Oximetry 10/22/20 10/22/20 10/22/20 02:46 03:00 04:00 Temperature 98.8 F Pulse Rate 102 H 105 H 117 H Pulse Rate [ Anterior Bilateral Throughout] Pulse Rate [ 114 H From Monitor] Respiratory 25 H 23 38 H Rate Respiratory Rate [Anterior Bilateral Throughout] Blood Pressure 122/68 128/73 145/80 O2 Sat by Pulse 100 99 98 Oximetry 10/22/20 10/22/20 10/22/20 05:00 05:53 06:00 Temperature Pulse Rate 100 H 102 H 102 H Pulse Rate [ Anterior Bilateral Throughout] Pulse Rate [ From Monitor] Respiratory 20 15 Rate Respiratory Rate [Anterior Bilateral Throughout] Blood Pressure 121/75 118/77 136/73 O2 Sat by Pulse 99 99 Oximetry 10/22/20 10/22/20 10/22/20 07:00 07:35 08:00 Temperature 99.5 F Pulse Rate 96 H 109 H 104 H Pulse Rate [ 113 H Anterior Bilateral Throughout] Pulse Rate [ From Monitor] Respiratory 26 H 23 Rate Respiratory 24 Rate [Anterior Bilateral Throughout] Blood Pressure 136/73 139/58 146/56 O2 Sat by Pulse 99 100 100 Oximetry 10/22/20 11:00 Temperature Pulse Rate 96 H Pulse Rate [ Anterior Bilateral Throughout] Pulse Rate [ From Monitor] Respiratory Rate Respiratory Rate [Anterior Bilateral Throughout] Blood Pressure 161/64 O2 Sat by Pulse Oximetry - General physical appearance Narrative Exam: Gen.: Opens eyes spontaneously but does not follow commands, unresponsive ENT: Trachea midline. Tracheostomy in place with site clean, dry, intact. CV: S1, S2 present Respiratory: No audible wheezes Abdomen: Soft, nondistended, nontender. PEG in place with bumper at 3 cm at the skin. Dressing clean, dry, intact - Labs 10/22/20 07:26 10/21/20 13:54 Diabetes panel 10/21/20 Range/Units 13:54 Sodium 136 L (137-145) mmol/L Potassium 4.7 (3.6-5.0) mmol/L Chloride 102.6 (98-107) mmol/L Carbon Dioxide 22 (22-30) mmol/L BUN 15 (7-17) mg/dL Creatinine 0.6 (0.6-1.2) mg/dL Glucose 120 H (65-100) mg/dL Calcium 9.5 (8.4-10.2) mg/dL Calcium panel 10/21/20 Range/Units 13:54 Calcium 9.5 (8.4-10.2) mg/dL Pituitary panel 10/21/20 Range/Units 13:54 Sodium 136 L (137-145) mmol/L Potassium 4.7 (3.6-5.0) mmol/L Chloride 102.6 (98-107) mmol/L Carbon Dioxide 22 (22-30) mmol/L BUN 15 (7-17) mg/dL Creatinine 0.6 (0.6-1.2) mg/dL Glucose 120 H (65-100) mg/dL Calcium 9.5 (8.4-10.2) mg/dL Adrenal panel 10/21/20 Range/Units 13:54 Sodium 136 L (137-145) mmol/L Potassium 4.7 (3.6-5.0) mmol/L Chloride 102.6 (98-107) mmol/L Carbon Dioxide 22 (22-30) mmol/L BUN 15 (7-17) mg/dL Creatinine 0.6 (0.6-1.2) mg/dL Glucose 120 H (65-100) mg/dL Calcium 9.5 (8.4-10.2) mg/dL
--- NOTE | 2020-10-22 13:18 | Progress Note ---
Subjective Principal diagnosis: Eclampsia/HELLP Syndrome, ADOLPH, DIC; s/p , s/p supracervical hyst Objective - Vital Signs Vital signs: Vital Signs - 12hr 10/22/20 10/22/20 10/22/20 01:30 01:46 02:00 Temperature Pulse Rate 106 H 102 H 109 H Pulse Rate [ Anterior Bilateral Throughout] Pulse Rate [ From Monitor] Respiratory 22 23 23 Rate Respiratory Rate [Anterior Bilateral Throughout] Blood Pressure 127/68 127/68 132/88 O2 Sat by Pulse 98 98 98 Oximetry 10/22/20 10/22/20 10/22/20 02:16 02:30 02:46 Temperature Pulse Rate 103 H 97 H 102 H Pulse Rate [ Anterior Bilateral Throughout] Pulse Rate [ From Monitor] Respiratory 16 22 25 H Rate Respiratory Rate [Anterior Bilateral Throughout] Blood Pressure 132/88 122/68 122/68 O2 Sat by Pulse 99 99 100 Oximetry 10/22/20 10/22/20 10/22/20 03:00 04:00 05:00 Temperature 98.8 F Pulse Rate 105 H 117 H 100 H Pulse Rate [ Anterior Bilateral Throughout] Pulse Rate [ 114 H From Monitor] Respiratory 23 38 H 20 Rate Respiratory Rate [Anterior Bilateral Throughout] Blood Pressure 128/73 145/80 121/75 O2 Sat by Pulse 99 98 99 Oximetry 10/22/20 10/22/20 10/22/20 05:53 06:00 07:00 Temperature Pulse Rate 102 H 102 H 96 H Pulse Rate [ Anterior Bilateral Throughout] Pulse Rate [ From Monitor] Respiratory 15 26 H Rate Respiratory Rate [Anterior Bilateral Throughout] Blood Pressure 118/77 136/73 136/73 O2 Sat by Pulse 99 99 Oximetry 10/22/20 10/22/20 10/22/20 07:35 08:00 11:00 Temperature 99.5 F Pulse Rate 109 H 104 H 96 H Pulse Rate [ 113 H Anterior Bilateral Throughout] Pulse Rate [ From Monitor] Respiratory 23 Rate Respiratory 24 Rate [Anterior Bilateral Throughout] Blood Pressure 139/58 146/56 161/64 O2 Sat by Pulse 100 100 Oximetry - Lab 10/22/20 07:26 10/21/20 13:54 Most recent lab results ABG pH 7.473 (7.320-7.450) H 10/13/20 07:18 ABG pCO2 25.0 mm Hg 10/10/20 04:42 ABG pO2 95.2 mm Hg (80.0-90.0) H 10/10/20 04:42 ABG HCO3 20.6 mmol/L (20.0-26.0) 10/10/20 04:42 ABG O2 Saturation 97.9 % (95.0-99.0) 10/10/20 04:42 Calcium 9.5 mg/dL (8.4-10.2) 10/21/20 13:54 Phosphorus 4.00 mg/dL (2.5-4.5) 10/20/20 07:59 Magnesium 1.80 mg/dL (1.7-2.3) 10/20/20 07:59 Medications & Allergies - Medications Allergies/Adverse Reactions: Allergies egg Allergy (Severe, Verified 05/22/20 16:09) Anaphylaxis NSAIDS (Non-Steroidal Anti-Inflamma Allergy (Severe, Verified 05/22/20 16:09) Unknown pt c/o Palpitations, nervous, had to take benadryl Sulfa (Sulfonamide Antibiotics) Allergy (Severe, Verified 05/22/20 16:09) Anaphylaxis SWELING,NUMBNESS ibuprofen Allergy (Intermediate, Verified 05/22/20 16:09) Bleeding latex Allergy (Verified 05/22/20 16:09) Hives plecanatide [From Trulance] Allergy (Verified 05/22/20 16:09) Anaphylaxis adhesive tape Adverse Reaction (Intermediate, Verified 05/22/20 16:09) Unknown PAPER TAPE OK metoclopramide [From Reglan] Adverse Reaction (Verified 05/22/20 16:09) Unknown Home Medications: Home Medications Medication Instructions Recorded Confirmed Last Taken Type Pantoprazole [Protonix TAB] 20 mg PO DAILY 05/10/19 08/20/20 05/10/19 05:00 History busPIRone 15 mg PO DAILY 01/15/20 08/20/20 Unknown History Albuterol Sulfate [Proventil Hfa] 6.7 gm IH Q4HR PRN #1 hfa.aer.ad 04/07/20 08/20/20 Unknown Rx Topiramate (Nf) [Trokendi XR CAP] 100 mg PO DAILY 08/20/20 08/20/20 Unknown History oxyCODONE /ACETAMINOPHEN [Percocet 1 tab PO Q6HR 08/20/20 08/20/20 Unknown History 5/325 mg] Active Medications: Generic Name Dose Route Start Last Admin Trade Name Freq PRN Reason Stop Dose Admin Acetaminophen 650 mg 10/05/20 16:34 10/16/20 00:13 Acetaminophen 325 Mg/10.15 Ml Oral Liqd Unit Dose FEEDTUBE 650 mg Q6H PRN Administration Non Cardiac Pain or Temp>100.5 Albuterol/Ipratropium 1 ampul 10/10/20 20:00 10/22/20 07:28 Ipratropium/Albuterol Sulfate 3 Ml Ampul.Neb IH 1 ampul Q8HRT ERINN Administration Lipase/Protease/Amylase 1 each 10/05/20 11:09 Lipase 10,500/Protease 25,000/Amylase 43,750 (Units) Dr Barakat FEEDTUBE PRN PRN For Clogged Feeding Tube Enoxaparin Sodium 40 mg 10/22/20 10:00 10/22/20 11:42 Enoxaparin 40 Mg/0.4 Ml Inj SUB-Q 40 mg DAILY ERINN Administration Protocol Famotidine 20 mg 10/07/20 10:00 10/22/20 11:43 Famotidine 20 Mg Tab PO 20 mg BID ERINN Administration Furosemide 40 mg 10/17/20 10:00 10/22/20 11:43 Furosemide 40 Mg Tab PO 40 mg QDAY ERINN Administration Glycopyrrolate 1 mg 10/20/20 10:00 10/22/20 11:44 Glycopyrrolate 1 Mg Tab PO 1 mg BID ERINN Administration Hydralazine HCl 20 mg 10/07/20 11:49 10/17/20 07:20 Hydralazine 20 Mg/1 Ml Inj IV 20 mg Q6H PRN Administration SBP >170 Hydralazine HCl 50 mg 10/17/20 09:00 10/22/20 05:53 Hydralazine 25 Mg Tab PO 50 mg Q8HR ERINN Administration Hydrophilic Ointment 1 applic 10/04/20 06:55 Lip Therapy Vaseline TP Q2HR PRN Dry Lips Dextrose 1,000 mls @ 75 mls/hr 10/13/20 11:00 10/21/20 21:35 D10w IV 75 mls/hr DIRECT ERINN Administration Cefepime HCl 2 gm in 100 mls @ 200 mls/hr 10/22/20 13:00 Cefepime/Ns 2 Gm/100 Ml IV Q8H ERINN Protocol Metronidazole 500 mg in 100 mls @ 100 mls/hr 10/22/20 13:00 Flagyl 500 Mg/100 Ml IV Q8H ERINN Protocol Labetalol HCl 300 mg 10/17/20 09:00 10/22/20 11:00 Labetalol 100 Mg Tab PO 300 mg TID ERINN Administration Multi-Ingred Cream/Lotion/Oil/Oint 1 applic 10/04/20 06:55 Mineral Oil/Petrolatum, White Ophth Oint 3.5 Gm OU Q4HR PRN Dry Eye(s) Simple Syrup 15 ml 10/05/20 11:09 Simple Syrup 15 Ml FEEDTUBE PRN PRN Hypoglycemia Simple Syrup 30 ml 10/05/20 11:09 Simple Syrup 15 Ml FEEDTUBE PRN PRN Hypoglycemia Sodium Bicarbonate 325 mg 10/05/20 11:09 Sodium Bicarbonate 325 Mg Tab FEEDTUBE PRN PRN For Clogged Feeding Tube Sodium Bicarbonate 1,300 mg 10/13/20 14:00 10/21/20 21:13 Sodium Bicarbonate 650 Mg Tab PO 1,300 mg TID ERINN Administration Topiramate 50 mg 10/05/20 11:00 10/22/20 11:43 Topiramate Tab 25 Mg Tab PO 50 mg Q12HR ERINN Administration
[2020-10-22] MEDS: metroNIDAZOLE/NS 500 MG/100 ML 500 MG/100 ML BAG IV SCH ×2 (15:43→22:56)
[2020-10-22] MEDS: CEFEPIME/NS 2 GM/100 ML 2 GM/100 ML BAG IV SCH ×2 (15:44→22:50)
[2020-10-22] MEDS: DEXTROSE 10% IN WATER 1,000 ML IV SCH (15:48)
[2020-10-22] MEDS: MEROPENEM/NS 1 GRAM/100 ML 1 GRAM/100 ML BAG IV SCH (18:23)
--- NOTE | 2020-10-22 20:22 | Event Note ---
Patient is stable from renal standpoint creatinine is currently 0.6 potassium 4.7 bicarb normal blood pressure has been stable CT scan shows normal adrenals as well as kidneys We will sign off the case please call if needed
[2020-10-23] MEDS: IPRATROPIUM/ALBUTEROL SULFATE 3 ML AMPUL.NEB IH SCH ×4 (00:22→23:59)
[2020-10-23 06:01] LABS: Hemoglobin 10.4 gm/dl (10.1-14.3); Mean Corpuscular HGB Conc 35 % (30-34); Mean Corpuscular Volume 86 fl (79-97); Platelet Count 503 K/mm3 (140-440); Red Cell Distribution Width 17.6 % (13.2-15.2)
[2020-10-23 06:06] LABS: Blood Urea Nitrogen 17 mg/dL (7-17); Calcium 9.5 mg/dL (8.4-10.2); Hemolysis Index 52
[2020-10-23] MEDS: CEFEPIME/NS 2 GM/100 ML 2 GM/100 ML BAG IV SCH ×3 (06:14→22:02)
[2020-10-23] MEDS: metroNIDAZOLE/NS 500 MG/100 ML 500 MG/100 ML BAG IV SCH ×2 (06:15→13:21)
[2020-10-23] MEDS: hydrALAZINE 25 MG TAB PO SCH ×3 (06:15→21:58)
[2020-10-23 06:22] LABS: BUN/Creatinine Ratio 28
[2020-10-23] MEDS: SODIUM BICARBONATE 650 MG TAB PO SCH ×3 (08:31→21:58)
[2020-10-23] MEDS: FAMOTIDINE 20 MG TAB PO SCH ×2 (09:31→21:57)
[2020-10-23] MEDS: TOPIRAMATE TAB 25 MG TAB PO SCH ×2 (09:31→21:58)
[2020-10-23] MEDS: GLYCOPYRROLATE 1 MG TAB PO SCH (09:32)
[2020-10-23] MEDS: ENOXAPARIN 40 MG/0.4 ML INJ SUB-Q SCH (09:33)
[2020-10-23] MEDS: FUROSEMIDE 40 MG TAB PO SCH (09:33)
[2020-10-23] MEDS: DEXTROSE 10% IN WATER 1,000 ML IV SCH (09:34)
--- NOTE | 2020-10-23 11:09 | Progress Note ---
Assessment and Plan 30 y/o female with Eclampsia, s/p emergent section with DIC, acute respiratory failure and worsening renal function. 10/23/20: Daily PSV trials for as long as patient will tolerate. Needs PT/OT consult for passive range of motion. 10/22/20: Will start prolonged PSV trials. Attempt to wean from vent and then transition to floor to see if mental status improves. Continue tube feeds. 10/21/20: Trach and peg placed. No sedation. Restart Lovenox for Upper Ext DVT. Restart feeds when surgery states ok to use PEG. C. Diff treatment per ID. Guarded prognosis. Will be a mcc wean. Hopeful to wean off vent at least and then can transfer to floor. 10/20/20: NPO after midnight. DVT study just read from 10/14 on yesterday showing upper ext DVT. Started on Lovenox but need to hold therapy until after surgery. could be source of fevers. No sedation. 10/19/20: Stable BP. Will meet/talk with family at noon over the phone with myself and case management. Need to discuss goals of care and what next steps would be. Patient would need trach and peg and transfer to LTACH if family ok with this. Follow up speciation of GNR's in blood. Has been on Cefepime. Continues therapy for C. Diff. Guarded prognosis. Continue daily PSV trials but not ready for extubation secondary to mental state. 10/18/20: Blood pressure is much better with the addition of meds started on yesterday. Need to have family meeting jesica in regards to goals of care. Continue Daily PSV trials but not ready for extubation. Continue therapy for C. Diff per ID. 10/17/20: CT scan was of no help in regards to fevers. C. Diff is positive and BP now is more uncontrolled despite increasing labetalol. Today will increase to 300 TID. Added TID Hydralazine and added PO lasix given her mild pulmonary htn seen on echo. Spoke with mother over the phone and she requests to come see the patient. Given current circumstances, will allow her to come briefly today and then will speak with her at the bedside. No neurology is available at the time and suspect these will be the majority of her questions. Tolerated PSV briefly yesterday and will do again today but not for extended periods as given her mental state she is not a candidate for extubation. I will also ask the mother about termite control servicer care (trach and peg) when she comes today. Overall prognosis is guarded to poor. If oral meds cannot regulate blood pressure, may need Cardene drip. Continue therapy for C. Diff per ID. 10/16/20: Needs a different consent for CT of abdomen and pelvis. I have signed the one in the chart. The nurse who obtained the first consent did obtain consent for contrast, it just wasn't listed on the that consent. Await neurology input on EEG vs MRI findings. Patient has now been intubated 14 days. Need to have family meeting to discuss goals of care but I suspect family will want to hear from Neurology as well. Tolerating PSV trials but will only do briefly as patient is not a candidate for extubation today. Will increase labetalol to 200 TID based on MRI report. Overall prognosis is guarded to poor. 10/15/2020: MRI and CT's today. Continue Precedex and PRN fent pushes. ID ordered C. Diff test. Continue D10 and tube feeds. Continue vent support. Suspect patient will need trach and peg. 10/14/2020: Await MRI. Continue Precedex and only use PRN fent pushes. CM states that there is a . Now with persistent fever, will obtain CT abdomen pelvis with contrast to see if source for fevers can be found. Continue D10 as sugars are still not elevated. 10/12/2020: Patient seen on 10/12 but note entered late. Formal neurology consult today. Hold all sedation if possible and only use precedex. CM to find out if there is truly a or if the decisions would fall on mother as I do not know the ages of her children but I don't think they are of age to make decisions. Guarded prognosis given mental state. 10/08/2020: Will start patient on precedex today. Plan is to wean off fent drip. Will increase buspar to BID. Need to see patient on as little sedation as possible to determine neurological status. EEG has still not been read. Mag stopped yesterday. Largest concern now is neurologic function. 10/07/2020: Head CT unremarkable. Await EEG to be read. Will stop mag Drip. If seizures occur then will load with Keppra and start BID dosing of this. Appreciate OB note. Continue D10 as sugars are still not severely elevated until feeds are at goal. PRN ativan present as well. Will add dilaudid for pain control. Increased BB to TID and added PRN hydralazine 10/06/2020: Stat Head CT today. Likely needs EEG. Will order. Continue Mag drip and follow up levels. Continue feeds. Continue to wean FiO2 as tolerated. Hold sedatives but can give PRN ativan as needed for seizure activity. Continue D10 as Tube feeds are not at goal yet. Guarded prognosis with mental state. 10/05/2020: Feed today. Stop Albumin and Abx. Will stop D10 once feeds start but will continue q2 hour FSBS until 3 consecutive >180. H/H stable. Will continue to aggressively wean FiO2. Patient has a 6.5 tube that will likely impede PSV trials given her size so will attempt to change out. Also will restart her home meds for anxiety and chronic migraine therapy. Prognosis is still guarded but promising given her hemodynamic stability. Continue chowdhury for accurate urine out put. 10/04/2020: Much improved today. Still very ill however. Down to just one pressor. Still with good urine output. Await chemistry results from this am. Likely can stop Bicarb drip given improvement in pH but would like to see bicarb on blood work. Agree with continued transfusion of blood products. Needs fibrinongen levels as well as repeat coags. I cannot see the standing orders on my screen so will call down to lab and let them know what's needed. I know she has had at leas 2 cryo's but I am not exactly sure if the count is accurate in the computer in regards to PRBC's and FFP's. Platelets lower this am but still greater than 30K. Continue chowdhury for I/O measurement. Will start to wean FiO2 on vent. CXR looks like edema but oxygenation is stable right now. Resuscitation is the most important thing right now. Will continue abx therapy at least 24 more hours. Prognosis is still very guarded but patient showing signs of improvement. 1. CV-Extremely volume deplete as well as intrasvascular depletion. Will continue to bolus with LR and saline as needed. Will add Albumin to help with intravascular volume. Spoke with OB attending over phone yesterday. No acute indication for steroids at this time. Serial H/H's given maximum pressor requirements. Will transfuse to keep up with AVINASH drain and help with weaning. Severely acidotic but improving. Likely adding to pressor requirement. GOAL is map of 65 and will wean accordingly. Will start to wean Sohail first. Ordered art line as well. 2. Heme-DIC secondary to Eclampsia, possible sepsis but white count could be stress related. Will continue to transfuse PRBC's and FFP with Cryo as needed. Follow Fibrinogen levels. Tele Heme has been consulted and note reviewed. Will give one cryo for every 6 units of PRBC's transfused. has gotten one cryo, awaiting the other to thaw out. Plts at 72K right now. Hold on further transfusion. May need to consider Factor VII if execessive bleeding continues. Will also put on broad spec abx therapy incase of possible sepsis causing DIC. Hopeful with correction of coaguloapthy she will improve. 3. Very very guarded prognosis. Will continue aggressive resuscitation. Bailee schwab to come visit given exceptional case and extremely guarded prognosis. CCT 31 minutes. Subjective Date of service: 10/23/20 Principal diagnosis: Eclampsia/HELLP Syndrome, ADOLPH, DIC; s/p , s/p supracervical hyst Interval history: No acute events. Eyes open. Still not responsive. RT about to place on PSV. Objective Vital Signs - 12hr 10/22/20 10/22/20 10/23/20 23:11 23:30 00:00 Temperature 98.4 F Pulse Rate 94 H 89 Pulse Rate [ Anterior Bilateral Throughout] Pulse Rate [ From Monitor] Respiratory 21 22 Rate Respiratory Rate [Anterior Bilateral Throughout] Blood Pressure 150/82 150/82 O2 Sat by Pulse 99 99 Oximetry O2 Sat by Pulse Oximetry [ Assessment] 10/23/20 10/23/20 10/23/20 00:18 00:24 00:25 Temperature Pulse Rate 99 H 99 H Pulse Rate [ 100 H Anterior Bilateral Throughout] Pulse Rate [ From Monitor] Respiratory Rate Respiratory 26 H Rate [Anterior Bilateral Throughout] Blood Pressure 118/61 O2 Sat by Pulse 99 Oximetry O2 Sat by Pulse Oximetry [ Assessment] 10/23/20 10/23/20 10/23/20 01:00 02:00 03:00 Temperature Pulse Rate 98 H 95 H 88 Pulse Rate [ Anterior Bilateral Throughout] Pulse Rate [ From Monitor] Respiratory 30 H 19 20 Rate Respiratory Rate [Anterior Bilateral Throughout] Blood Pressure 133/83 130/77 124/64 O2 Sat by Pulse 99 100 99 Oximetry O2 Sat by Pulse Oximetry [ Assessment] 10/23/20 10/23/20 10/23/20 03:20 03:32 04:00 Temperature 99.3 F Pulse Rate 89 Pulse Rate [ Anterior Bilateral Throughout] Pulse Rate [ 105 H From Monitor] Respiratory 20 Rate Respiratory Rate [Anterior Bilateral Throughout] Blood Pressure 134/72 O2 Sat by Pulse 99 Oximetry O2 Sat by Pulse 100 Oximetry [ Assessment] 10/23/20 10/23/20 10/23/20 04:12 05:00 06:00 Temperature Pulse Rate 88 84 102 H Pulse Rate [ Anterior Bilateral Throughout] Pulse Rate [ From Monitor] Respiratory 21 25 H Rate Respiratory Rate [Anterior Bilateral Throughout] Blood Pressure 134/72 117/62 142/87 O2 Sat by Pulse 100 100 99 Oximetry O2 Sat by Pulse Oximetry [ Assessment] 10/23/20 10/23/20 10/23/20 06:15 07:00 07:41 Temperature Pulse Rate 103 H 97 H 105 H Pulse Rate [ 105 H Anterior Bilateral Throughout] Pulse Rate [ From Monitor] Respiratory 20 Rate Respiratory 23 Rate [Anterior Bilateral Throughout] Blood Pressure 142/87 133/66 144/81 O2 Sat by Pulse 100 100 Oximetry O2 Sat by Pulse 100 Oximetry [ Assessment] 10/23/20 10/23/20 10/23/20 08:00 08:32 09:00 Temperature Pulse Rate 97 H 104 H 110 H Pulse Rate [ Anterior Bilateral Throughout] Pulse Rate [ 104 H From Monitor] Respiratory 22 25 H Rate Respiratory Rate [Anterior Bilateral Throughout] Blood Pressure 135/75 144/81 144/81 O2 Sat by Pulse 99 100 Oximetry O2 Sat by Pulse Oximetry [ Assessment] Constitutional: comatose, other (critically ill on ventilator) Eyes: non-icteric ENT: oropharynx moist, other (orally intubated and not sedated) Neck: other (large in cirumference) Effort: normal Ascultation: Bilateral: clear, diminished breath sounds, other (coarse BS bilaterally w/ mild faint wheezes) Percussion: Bilateral: not dull Cardiovascular: regular rate and rhythm, other (no mrg) Gastrointestinal: normoactive bowel sounds, soft, other (post surgical changes with drain on the left side) Extremities: no cyanosis, pink and warm, anasarca Neurologic: other (unresponsive, not following commands, not tracking) Psychiatric: other (unable to assess) CBC and BMP: 10/23/20 05:34 10/23/20 05:34 ABG, PT/INR, D-dimer: ABG ABG pH 7.473 (7.320-7.450) H 10/13/20 07:18 POC ABG pCO2 20.7 mmHg (32.0-48.0) L 10/13/20 07:18 ABG pCO2 25.0 mm Hg 10/10/20 04:42 POC ABG pO2 137.9 mmHg (83-108) H 10/13/20 07:18 ABG pO2 95.2 mm Hg (80.0-90.0) H 10/10/20 04:42 POC ABG HCO3 14.8 10/13/20 07:18 ABG O2 Saturation 97.9 % (95.0-99.0) 10/10/20 04:42 PT/INR, D-dimer PT 13.6 Sec. (12.2-14.9) 10/21/20 13:54 INR 1.06 (0.87-1.13) 10/21/20 13:54 D-Dimer > 03193 ng/mlDDU (0-234) H 10/04/20 10:00 Abnormal lab findings: Abnormal Labs 10/02/20 10/02/20 10/02/20 12:03 12:18 12:18 WBC 14.9 H RBC Hgb 9.1 L Hct MCV MCH 22 L MCHC 28 L RDW 17.6 H Plt Count 102 L Lymph % (Auto) [place] % (Auto) Lymph # (Auto) [place] # (Auto) Baso # (Auto) Seg Neutrophils % Seg Neuts % (Manual) 36.0 L Lymphocytes % (Manual) 49.0 H Monocytes % (Manual) Nucleated RBC % 6.0 H Seg Neutrophils # Seg Neutrophils # Man Lymphocytes # (Manual) 7.3 H Monocytes # (Manual) PT INR APTT Fibrinogen D-Dimer ABG pH POC ABG pCO2 POC ABG pO2 ABG pO2 ABG HCO3 ABG Base Excess ABG Hemoglobin ABG Oxyhemoglobin ABG Sodium ABG Potassium ABG Chloride ABG Glucose VBG pH Oxyhemoglobin Carboxyhemoglobin Sodium 134 L Potassium Chloride Carbon Dioxide 12 L BUN 6 L Creatinine Glucose 390 H POC Glucose 451 H Lactic Acid Calcium Ionized Calcium Magnesium AST 135 H ALT 85 H Alkaline Phosphatase 172 H Lactate Dehydrogenase 641 H NT-Pro-B Natriuret Pep Total Protein 5.4 L Albumin 2.3 L Arterial Blood Glucose Arterial Blood Ionized Calcium Urine WBC (Auto) Vancomycin Trough Phenytoin Crossmatch 10/02/20 10/02/20 10/02/20 12:50 13:05 13:05 WBC 38.6 H RBC Hgb 8.9 L Hct 29.0 L MCV 73 L MCH 22 L MCHC RDW 17.2 H Plt Count Lymph % (Auto) [place] % (Auto) Lymph # (Auto) [place] # (Auto) Baso # (Auto) Seg Neutrophils % Seg Neuts % (Manual) Lymphocytes % (Manual) Monocytes % (Manual) Nucleated RBC % 2.0 H Seg Neutrophils # Seg Neutrophils # Man 20.1 H Lymphocytes # (Manual) 10.4 H Monocytes # (Manual) 2.3 H PT INR APTT Fibrinogen D-Dimer ABG pH POC ABG pCO2 POC ABG pO2 ABG pO2 ABG HCO3 ABG Base Excess ABG Hemoglobin ABG Oxyhemoglobin ABG Sodium ABG Potassium ABG Chloride ABG Glucose VBG pH Oxyhemoglobin Carboxyhemoglobin Sodium Potassium Chloride Carbon Dioxide BUN Creatinine Glucose POC Glucose Lactic Acid Calcium Ionized Calcium Magnesium AST 184 H ALT 113 H Alkaline Phosphatase Lactate Dehydrogenase 769 H NT-Pro-B Natriuret Pep Total Protein Albumin Arterial Blood Glucose Arterial Blood Ionized Calcium Urine WBC (Auto) Vancomycin Trough Phenytoin Crossmatch See Detail 10/02/20 10/02/20 10/02/20 16:25 16:35 16:35 WBC RBC Hgb Hct MCV MCH MCHC RDW Plt Count Lymph % (Auto) [place] % (Auto) Lymph # (Auto) [place] # (Auto) Baso # (Auto) Seg Neutrophils % Seg Neuts % (Manual) Lymphocytes % (Manual) Monocytes % (Manual) Nucleated RBC % Seg Neutrophils # Seg Neutrophils # Man Lymphocytes # (Manual) Monocytes # (Manual) PT INR APTT Fibrinogen D-Dimer ABG pH 7.031 L* POC ABG pCO2 POC ABG pO2 ABG pO2 116.8 H ABG HCO3 12.7 L ABG Base Excess -16.9 L ABG Hemoglobin 7.8 L ABG Oxyhemoglobin ABG Sodium ABG Potassium ABG Chloride ABG Glucose VBG pH Oxyhemoglobin 94.9 L Carboxyhemoglobin Sodium Potassium Chloride Carbon Dioxide BUN Creatinine Glucose 403 H POC Glucose Lactic Acid 11.40 H* Calcium 6.3 L D Ionized Calcium Magnesium AST 70 H ALT Alkaline Phosphatase Lactate Dehydrogenase NT-Pro-B Natriuret Pep Total Protein 1.9 L D Albumin 1.2 L Arterial Blood Glucose Arterial Blood Ionized Calcium Urine WBC (Auto) Vancomycin Trough Phenytoin Crossmatch 10/02/20 10/02/20 10/02/20 18:18 18:18 22:30 WBC 11.5 H RBC 2.06 L Hgb 5.5 L* D Hct 17.3 L* D MCV MCH 27 L MCHC RDW 19.5 H Plt Count 60 L Lymph % (Auto) [place] % (Auto) Lymph # (Auto) [place] # (Auto) Baso # (Auto) Seg Neutrophils % Seg Neuts % (Manual) Lymphocytes % (Manual) 8.0 L Monocytes % (Manual) 8.0 H Nucleated RBC % 8.0 H Seg Neutrophils # Seg Neutrophils # Man Lymphocytes # (Manual) 0.9 L Monocytes # (Manual) 0.9 H PT 37.1 H INR 3.71 H APTT 135.8 H* Fibrinogen D-Dimer ABG pH 7.067 L* POC ABG pCO2 POC ABG pO2 ABG pO2 183.0 H ABG HCO3 14.1 L ABG Base Excess -15.1 L ABG Hemoglobin 7.7 L ABG Oxyhemoglobin ABG Sodium ABG Potassium ABG Chloride ABG Glucose VBG pH Oxyhemoglobin Carboxyhemoglobin Sodium Potassium Chloride Carbon Dioxide BUN Creatinine Glucose POC Glucose Lactic Acid Calcium Ionized Calcium Magnesium AST ALT Alkaline Phosphatase Lactate Dehydrogenase NT-Pro-B Natriuret Pep Total Protein Albumin Arterial Blood Glucose Arterial Blood Ionized Calcium Urine WBC (Auto) Vancomycin Trough Phenytoin Crossmatch 10/02/20 10/02/20 10/03/20 Unknown Unknown 00:01 WBC RBC Hgb Hct MCV MCH MCHC RDW Plt Count Lymph % (Auto) [place] % (Auto) Lymph # (Auto) [place] # (Auto) Baso # (Auto) Seg Neutrophils % Seg Neuts % (Manual) Lymphocytes % (Manual) Monocytes % (Manual) Nucleated RBC % Seg Neutrophils # Seg Neutrophils # Man Lymphocytes # (Manual) Monocytes # (Manual) PT 61.1 H INR 6.92 H* APTT 158.7 H* Fibrinogen < 60 L* D-Dimer > 29843 H ABG pH POC ABG pCO2 POC ABG pO2 ABG pO2 ABG HCO3 ABG Base Excess ABG Hemoglobin ABG Oxyhemoglobin ABG Sodium ABG Potassium ABG Chloride ABG Glucose VBG pH 6.949 L* Oxyhemoglobin Carboxyhemoglobin Sodium Potassium Chloride Carbon Dioxide BUN Creatinine Glucose POC Glucose 196 H Lactic Acid Calcium Ionized Calcium Magnesium AST ALT Alkaline Phosphatase Lactate Dehydrogenase NT-Pro-B Natriuret Pep Total Protein Albumin Arterial Blood Glucose Arterial Blood Ionized Calcium Urine WBC (Auto) Vancomycin Trough Phenytoin Crossmatch 10/03/20 10/03/20 10/03/20 00:40 00:40 00:40 WBC RBC Hgb Hct MCV MCH MCHC RDW Plt Count Lymph % (Auto) [place] % (Auto) Lymph # (Auto) [place] # (Auto) Baso # (Auto) Seg Neutrophils % Seg Neuts % (Manual) Lymphocytes % (Manual) Monocytes % (Manual) Nucleated RBC % Seg Neutrophils # Seg Neutrophils # Man Lymphocytes # (Manual) Monocytes # (Manual) PT 15.1 H INR 1.21 H APTT Fibrinogen D-Dimer ABG pH POC ABG pCO2 POC ABG pO2 ABG pO2 ABG HCO3 ABG Base Excess ABG Hemoglobin ABG Oxyhemoglobin ABG Sodium ABG Potassium ABG Chloride ABG Glucose VBG pH Oxyhemoglobin Carboxyhemoglobin Sodium 136 L Potassium Chloride Carbon Dioxide BUN Creatinine 1.6 H D Glucose 106 H POC Glucose Lactic Acid 5.60 H* Calcium 6.5 L Ionized Calcium Magnesium AST 232 H ALT 104 H Alkaline Phosphatase Lactate Dehydrogenase NT-Pro-B Natriuret Pep Total Protein 3.9 L D Albumin 2.4 L Arterial Blood Glucose Arterial Blood Ionized Calcium Urine WBC (Auto) Vancomycin Trough Phenytoin Crossmatch 10/03/20 10/03/20 10/03/20 02:08 02:08 02:08 WBC 17.6 H RBC 3.27 L Hgb 9.9 L D Hct 29.9 L D MCV MCH MCHC RDW 16.5 H Plt Count 75 L Lymph % (Auto) [place] % (Auto) Lymph # (Auto) [place] # (Auto) Baso # (Auto) Seg Neutrophils % Seg Neuts % (Manual) 76.0 H Lymphocytes % (Manual) Monocytes % (Manual) Nucleated RBC % 8.0 H Seg Neutrophils # Seg Neutrophils # Man 13.4 H Lymphocytes # (Manual) Monocytes # (Manual) PT INR APTT Fibrinogen D-Dimer ABG pH POC ABG pCO2 POC ABG pO2 ABG pO2 ABG HCO3 ABG Base Excess ABG Hemoglobin ABG Oxyhemoglobin ABG Sodium ABG Potassium ABG Chloride ABG Glucose VBG pH Oxyhemoglobin Carboxyhemoglobin Sodium Potassium Chloride Carbon Dioxide 19 L BUN Creatinine 1.4 H Glucose 306 H POC Glucose Lactic Acid 10.50 H* Calcium 6.4 L Ionized Calcium Magnesium AST ALT Alkaline Phosphatase Lactate Dehydrogenase NT-Pro-B Natriuret Pep Total Protein Albumin Arterial Blood Glucose Arterial Blood Ionized Calcium Urine WBC (Auto) Vancomycin Trough Phenytoin Crossmatch 10/03/20 10/03/20 10/03/20 02:42 03:59 05:31 WBC RBC Hgb Hct MCV MCH MCHC RDW Plt Count Lymph % (Auto) [place] % (Auto) Lymph # (Auto) [place] # (Auto) Baso # (Auto) Seg Neutrophils % Seg Neuts % (Manual) Lymphocytes % (Manual) Monocytes % (Manual) Nucleated RBC % Seg Neutrophils # Seg Neutrophils # Man Lymphocytes # (Manual) Monocytes # (Manual) PT INR APTT Fibrinogen D-Dimer ABG pH 7.144 L POC ABG pCO2 54.4 H POC ABG pO2 ABG pO2 ABG HCO3 ABG Base Excess ABG Hemoglobin 10.0 L ABG Oxyhemoglobin ABG Sodium ABG Potassium ABG Chloride 108.0 H ABG Glucose 306 H VBG pH Oxyhemoglobin Carboxyhemoglobin Sodium Potassium Chloride Carbon Dioxide BUN Creatinine Glucose POC Glucose 209 H Lactic Acid 9.20 H* Calcium Ionized Calcium Magnesium AST ALT Alkaline Phosphatase Lactate Dehydrogenase NT-Pro-B Natriuret Pep Total Protein Albumin Arterial Blood Glucose 306 H Arterial Blood Ionized Calcium 3.7 L Urine WBC (Auto) Vancomycin Trough Phenytoin Crossmatch 10/03/20 10/03/20 10/03/20 09:00 09:00 09:00 WBC 27.4 H RBC 2.84 L Hgb 8.5 L Hct 25.1 L MCV MCH MCHC RDW 16.1 H Plt Count 72 L Lymph % (Auto) [place] % (Auto) Lymph # (Auto) [place] # (Auto) Baso # (Auto) Seg Neutrophils % Seg Neuts % (Manual) Lymphocytes % (Manual) 11.0 L Monocytes % (Manual) Nucleated RBC % 3.0 H Seg Neutrophils # Seg Neutrophils # Man 18.4 H Lymphocytes # (Manual) Monocytes # (Manual) 1.9 H PT INR APTT Fibrinogen D-Dimer ABG pH POC ABG pCO2 POC ABG pO2 ABG pO2 ABG HCO3 ABG Base Excess ABG Hemoglobin ABG Oxyhemoglobin ABG Sodium ABG Potassium ABG Chloride ABG Glucose VBG pH Oxyhemoglobin Carboxyhemoglobin Sodium Potassium Chloride Carbon Dioxide BUN Creatinine 1.7 H Glucose 216 H POC Glucose Lactic Acid 9.20 H* Calcium 6.3 L Ionized Calcium Magnesium AST 331 H ALT 171 H Alkaline Phosphatase Lactate Dehydrogenase NT-Pro-B Natriuret Pep Total Protein 3.7 L Albumin 1.9 L Arterial Blood Glucose Arterial Blood Ionized Calcium Urine WBC (Auto) Vancomycin Trough Phenytoin Crossmatch 10/03/20 10/03/20 10/03/20 11:20 11:46 11:50 WBC 28.7 H RBC 2.67 L Hgb 8.0 L Hct 23.7 L MCV MCH MCHC RDW 16.6 H Plt Count 76 L Lymph % (Auto) [place] % (Auto) Lymph # (Auto) [place] # (Auto) Baso # (Auto) Seg Neutrophils % Seg Neuts % (Manual) Lymphocytes % (Manual) Monocytes % (Manual) Nucleated RBC % Seg Neutrophils # Seg Neutrophils # Man Lymphocytes # (Manual) Monocytes # (Manual) PT INR APTT Fibrinogen D-Dimer ABG pH POC ABG pCO2 POC ABG pO2 ABG pO2 ABG HCO3 ABG Base Excess ABG Hemoglobin ABG Oxyhemoglobin ABG Sodium ABG Potassium ABG Chloride ABG Glucose VBG pH Oxyhemoglobin Carboxyhemoglobin Sodium Potassium Chloride Carbon Dioxide BUN Creatinine Glucose POC Glucose 125 H Lactic Acid 8.00 H* Calcium Ionized Calcium Magnesium AST ALT Alkaline Phosphatase Lactate Dehydrogenase NT-Pro-B Natriuret Pep Total Protein Albumin Arterial Blood Glucose Arterial Blood Ionized Calcium Urine WBC (Auto) Vancomycin Trough Phenytoin Crossmatch 10/03/20 10/04/20 10/04/20 11:50 00:40 00:40 WBC RBC Hgb 6.8 L Hct 19.4 L* MCV MCH MCHC RDW Plt Count 49 L Lymph % (Auto) [place] % (Auto) Lymph # (Auto) [place] # (Auto) Baso # (Auto) Seg Neutrophils % Seg Neuts % (Manual) Lymphocytes % (Manual) Monocytes % (Manual) Nucleated RBC % Seg Neutrophils # Seg Neutrophils # Man Lymphocytes # (Manual) Monocytes # (Manual) PT INR APTT Fibrinogen D-Dimer ABG pH 7.244 L POC ABG pCO2 POC ABG pO2 ABG pO2 ABG HCO3 ABG Base Excess -4.5 L ABG Hemoglobin 7.3 L ABG Oxyhemoglobin ABG Sodium ABG Potassium ABG Chloride ABG Glucose VBG pH Oxyhemoglobin Carboxyhemoglobin Sodium Potassium Chloride Carbon Dioxide BUN Creatinine Glucose POC Glucose Lactic Acid Calcium Ionized Calcium Magnesium AST ALT Alkaline Phosphatase Lactate Dehydrogenase NT-Pro-B Natriuret Pep Total Protein Albumin Arterial Blood Glucose Arterial Blood Ionized Calcium Urine WBC (Auto) Vancomycin Trough Phenytoin Crossmatch 10/04/20 10/04/20 10/04/20 03:53 10:00 10:00 WBC 14.6 H RBC 2.57 L Hgb 7.6 L Hct 22.5 L MCV MCH MCHC RDW 15.8 H Plt Count 38 L Lymph % (Auto) 7.7 L [place] % (Auto) Lymph # (Auto) 1.1 L [place] # (Auto) 0.9 H Baso # (Auto) Seg Neutrophils % 85.6 H Seg Neuts % (Manual) Lymphocytes % (Manual) Monocytes % (Manual) Nucleated RBC % Seg Neutrophils # 12.5 H Seg Neutrophils # Man Lymphocytes # (Manual) Monocytes # (Manual) PT INR APTT Fibrinogen D-Dimer ABG pH POC ABG pCO2 POC ABG pO2 110.6 H ABG pO2 ABG HCO3 ABG Base Excess ABG Hemoglobin 6.7 L ABG Oxyhemoglobin ABG Sodium 132.0 L ABG Potassium ABG Chloride ABG Glucose 111 H VBG pH Oxyhemoglobin Carboxyhemoglobin Sodium 134 L D Potassium Chloride 97.6 L Carbon Dioxide BUN Creatinine 1.7 H Glucose POC Glucose Lactic Acid Calcium 6.3 L Ionized Calcium Magnesium AST 203 H ALT 81 H Alkaline Phosphatase Lactate Dehydrogenase NT-Pro-B Natriuret Pep Total Protein 3.9 L Albumin 2.3 L Arterial Blood Glucose 111 H Arterial Blood Ionized Calcium 3.5 L Urine WBC (Auto) Vancomycin Trough Phenytoin Crossmatch 10/04/20 10/04/20 10/04/20 10:00 10:00 10:14 WBC RBC Hgb Hct MCV MCH MCHC RDW Plt Count Lymph % (Auto) [place] % (Auto) Lymph # (Auto) [place] # (Auto) Baso # (Auto) Seg Neutrophils % Seg Neuts % (Manual) Lymphocytes % (Manual) Monocytes % (Manual) Nucleated RBC % Seg Neutrophils # Seg Neutrophils # Man Lymphocytes # (Manual) Monocytes # (Manual) PT INR APTT Fibrinogen D-Dimer > 82763 H ABG pH POC ABG pCO2 POC ABG pO2 ABG pO2 ABG HCO3 ABG Base Excess ABG Hemoglobin ABG Oxyhemoglobin ABG Sodium ABG Potassium ABG Chloride ABG Glucose VBG pH Oxyhemoglobin Carboxyhemoglobin Sodium Potassium Chloride Carbon Dioxide BUN Creatinine Glucose POC Glucose Lactic Acid 3.90 H* Calcium Ionized Calcium Magnesium AST ALT Alkaline Phosphatase Lactate Dehydrogenase NT-Pro-B Natriuret Pep 2788 H Total Protein Albumin Arterial Blood Glucose Arterial Blood Ionized Calcium Urine WBC (Auto) Vancomycin Trough Phenytoin Crossmatch 10/04/20 10/04/20 10/04/20 14:00 14:00 18:00 WBC 15.7 H RBC 3.17 L Hgb 9.3 L 9.6 L Hct 27.2 L 28.0 L MCV MCH MCHC RDW 16.9 H Plt Count 41 L Lymph % (Auto) 8.6 L [place] % (Auto) Lymph # (Auto) [place] # (Auto) 0.9 H Baso # (Auto) Seg Neutrophils % 85.4 H Seg Neuts % (Manual) Lymphocytes % (Manual) Monocytes % (Manual) Nucleated RBC % Seg Neutrophils # 13.4 H Seg Neutrophils # Man Lymphocytes # (Manual) Monocytes # (Manual) PT INR APTT Fibrinogen D-Dimer ABG pH POC ABG pCO2 POC ABG pO2 ABG pO2 ABG HCO3 ABG Base Excess ABG Hemoglobin ABG Oxyhemoglobin ABG Sodium ABG Potassium ABG Chloride ABG Glucose VBG pH Oxyhemoglobin Carboxyhemoglobin Sodium 133 L Potassium Chloride 96.4 L Carbon Dioxide BUN 18 H Creatinine 1.7 H Glucose POC Glucose Lactic Acid Calcium 6.3 L Ionized Calcium Magnesium AST ALT Alkaline Phosphatase Lactate Dehydrogenase NT-Pro-B Natriuret Pep Total Protein Albumin Arterial Blood Glucose Arterial Blood Ionized Calcium Urine WBC (Auto) Vancomycin Trough Phenytoin Crossmatch 10/04/20 10/04/20 10/05/20 18:00 22:00 05:00 WBC 17.6 H RBC 3.34 L Hgb 9.9 L Hct 29.4 L MCV MCH MCHC RDW 17.1 H Plt Count 56 L Lymph % (Auto) 8.5 L [place] % (Auto) Lymph # (Auto) [place] # (Auto) 1.0 H Baso # (Auto) Seg Neutrophils % 85.1 H Seg Neuts % (Manual) Lymphocytes % (Manual) Monocytes % (Manual) Nucleated RBC % Seg Neutrophils # 15.0 H Seg Neutrophils # Man Lymphocytes # (Manual) Monocytes # (Manual) PT INR APTT Fibrinogen D-Dimer ABG pH POC ABG pCO2 POC ABG pO2 ABG pO2 ABG HCO3 ABG Base Excess ABG Hemoglobin ABG Oxyhemoglobin ABG Sodium ABG Potassium ABG Chloride ABG Glucose VBG pH Oxyhemoglobin Carboxyhemoglobin Sodium 136 L Potassium Chloride Carbon Dioxide BUN 18 H Creatinine 1.7 H Glucose POC Glucose Lactic Acid 2.30 H* Calcium 6.6 L Ionized Calcium Magnesium AST ALT Alkaline Phosphatase Lactate Dehydrogenase NT-Pro-B Natriuret Pep Total Protein Albumin Arterial Blood Glucose Arterial Blood Ionized Calcium Urine WBC (Auto) Vancomycin Trough Phenytoin Crossmatch 10/05/20 10/05/20 10/05/20 05:00 05:00 05:03 WBC RBC Hgb Hct MCV MCH MCHC RDW Plt Count Lymph % (Auto) [place] % (Auto) Lymph # (Auto) [place] # (Auto) Baso # (Auto) Seg Neutrophils % Seg Neuts % (Manual) Lymphocytes % (Manual) Monocytes % (Manual) Nucleated RBC % Seg Neutrophils # Seg Neutrophils # Man Lymphocytes # (Manual) Monocytes # (Manual) PT INR APTT Fibrinogen D-Dimer ABG pH 7.458 H POC ABG pCO2 POC ABG pO2 ABG pO2 74.3 L ABG HCO3 27.5 H ABG Base Excess 3.4 H ABG Hemoglobin 10.0 L ABG Oxyhemoglobin ABG Sodium ABG Potassium ABG Chloride ABG Glucose VBG pH Oxyhemoglobin 94.9 L Carboxyhemoglobin Sodium Potassium Chloride Carbon Dioxide BUN 19 H Creatinine 1.8 H Glucose POC Glucose Lactic Acid Calcium 6.8 L Ionized Calcium 3.9 L Magnesium AST 225 H ALT 85 H Alkaline Phosphatase Lactate Dehydrogenase NT-Pro-B Natriuret Pep Total Protein 4.5 L Albumin 2.7 L Arterial Blood Glucose Arterial Blood Ionized Calcium Urine WBC (Auto) Vancomycin Trough Phenytoin Crossmatch 1210/05/20 10/05/20 10:10 15:00 19:40 WBC RBC Hgb Hct MCV MCH MCHC RDW Plt Count Lymph % (Auto) [place] % (Auto) Lymph # (Auto) [place] # (Auto) Baso # (Auto) Seg Neutrophils % Seg Neuts % (Manual) Lymphocytes % (Manual) Monocytes % (Manual) Nucleated RBC % Seg Neutrophils # Seg Neutrophils # Man Lymphocytes # (Manual) Monocytes # (Manual) PT INR APTT Fibrinogen D-Dimer ABG pH POC ABG pCO2 POC ABG pO2 ABG pO2 ABG HCO3 ABG Base Excess ABG Hemoglobin ABG Oxyhemoglobin ABG Sodium ABG Potassium ABG Chloride ABG Glucose VBG pH Oxyhemoglobin Carboxyhemoglobin Sodium Potassium 3.5 L Chloride Carbon Dioxide 31 H 32 H BUN 19 H 19 H Creatinine 1.8 H 1.8 H Glucose POC Glucose Lactic Acid Calcium 7.0 L 7.2 L Ionized Calcium Magnesium 2.90 H AST ALT Alkaline Phosphatase Lactate Dehydrogenase NT-Pro-B Natriuret Pep Total Protein Albumin Arterial Blood Glucose Arterial Blood Ionized Calcium Urine WBC (Auto) Vancomycin Trough Phenytoin Crossmatch 10/06/20 10/06/20 10/06/20 01:05 03:12 04:00 WBC 17.1 H RBC 3.47 L Hgb Hct MCV MCH MCHC RDW 17.4 H Plt Count 82 L Lymph % (Auto) 8.3 L [place] % (Auto) Lymph # (Auto) [place] # (Auto) 1.1 H Baso # (Auto) Seg Neutrophils % 83.8 H Seg Neuts % (Manual) Lymphocytes % (Manual) Monocytes % (Manual) Nucleated RBC % Seg Neutrophils # 14.3 H Seg Neutrophils # Man Lymphocytes # (Manual) Monocytes # (Manual) PT INR APTT Fibrinogen D-Dimer ABG pH 7.474 H POC ABG pCO2 POC ABG pO2 129.5 H ABG pO2 ABG HCO3 ABG Base Excess ABG Hemoglobin 11.4 L ABG Oxyhemoglobin ABG Sodium 131.8 L ABG Potassium ABG Chloride ABG Glucose 103 H VBG pH Oxyhemoglobin Carboxyhemoglobin 0.3 L Sodium Potassium Chloride Carbon Dioxide BUN Creatinine Glucose POC Glucose Lactic Acid Calcium Ionized Calcium Magnesium 3.70 H AST ALT Alkaline Phosphatase Lactate Dehydrogenase NT-Pro-B Natriuret Pep Total Protein Albumin Arterial Blood Glucose 103 H Arterial Blood Ionized Calcium 4.2 L Urine WBC (Auto) Vancomycin Trough Phenytoin Crossmatch 10/06/20 10/06/20 10/06/20 04:00 05:31 08:12 WBC RBC Hgb Hct MCV MCH MCHC RDW Plt Count Lymph % (Auto) [place] % (Auto) Lymph # (Auto) [place] # (Auto) Baso # (Auto) Seg Neutrophils % Seg Neuts % (Manual) Lymphocytes % (Manual) Monocytes % (Manual) Nucleated RBC % Seg Neutrophils # Seg Neutrophils # Man Lymphocytes # (Manual) Monocytes # (Manual) PT INR APTT Fibrinogen D-Dimer ABG pH POC ABG pCO2 POC ABG pO2 ABG pO2 ABG HCO3 ABG Base Excess ABG Hemoglobin ABG Oxyhemoglobin ABG Sodium ABG Potassium ABG Chloride ABG Glucose VBG pH Oxyhemoglobin Carboxyhemoglobin Sodium Potassium 3.5 L Chloride Carbon Dioxide BUN 19 H Creatinine 1.8 H Glucose 102 H POC Glucose 116 H Lactic Acid Calcium 7.2 L Ionized Calcium Magnesium 5.40 H AST 307 H ALT 137 H Alkaline Phosphatase Lactate Dehydrogenase NT-Pro-B Natriuret Pep Total Protein 4.5 L Albumin 2.6 L Arterial Blood Glucose Arterial Blood Ionized Calcium Urine WBC (Auto) Vancomycin Trough Phenytoin Crossmatch 10/06/20 10/06/20 10/06/20 11:00 11:50 20:13 WBC RBC Hgb Hct MCV MCH MCHC RDW Plt Count Lymph % (Auto) [place] % (Auto) Lymph # (Auto) [place] # (Auto) Baso # (Auto) Seg Neutrophils % Seg Neuts % (Manual) Lymphocytes % (Manual) Monocytes % (Manual) Nucleated RBC % Seg Neutrophils # Seg Neutrophils # Man Lymphocytes # (Manual) Monocytes # (Manual) PT INR APTT Fibrinogen D-Dimer ABG pH POC ABG pCO2 POC ABG pO2 ABG pO2 ABG HCO3 ABG Base Excess ABG Hemoglobin ABG Oxyhemoglobin ABG Sodium ABG Potassium ABG Chloride ABG Glucose VBG pH Oxyhemoglobin Carboxyhemoglobin Sodium Potassium Chloride Carbon Dioxide BUN Creatinine Glucose POC Glucose 106 H Lactic Acid Calcium Ionized Calcium Magnesium 6.50 H 6.20 H AST ALT Alkaline Phosphatase Lactate Dehydrogenase NT-Pro-B Natriuret Pep Total Protein Albumin Arterial Blood Glucose Arterial Blood Ionized Calcium Urine WBC (Auto) Vancomycin Trough Phenytoin Crossmatch 10/06/20 10/06/20 10/06/20 20:17 22:29 23:57 WBC RBC Hgb Hct MCV MCH MCHC RDW Plt Count Lymph % (Auto) [place] % (Auto) Lymph # (Auto) [place] # (Auto) Baso # (Auto) Seg Neutrophils % Seg Neuts % (Manual) Lymphocytes % (Manual) Monocytes % (Manual) Nucleated RBC % Seg Neutrophils # Seg Neutrophils # Man Lymphocytes # (Manual) Monocytes # (Manual) PT INR APTT Fibrinogen D-Dimer ABG pH POC ABG pCO2 POC ABG pO2 ABG pO2 ABG HCO3 ABG Base Excess ABG Hemoglobin ABG Oxyhemoglobin ABG Sodium ABG Potassium ABG Chloride ABG Glucose VBG pH Oxyhemoglobin Carboxyhemoglobin Sodium Potassium Chloride Carbon Dioxide BUN Creatinine Glucose POC Glucose 112 H 126 H 133 H Lactic Acid Calcium Ionized Calcium Magnesium AST ALT Alkaline Phosphatase Lactate Dehydrogenase NT-Pro-B Natriuret Pep Total Protein Albumin Arterial Blood Glucose Arterial Blood Ionized Calcium Urine WBC (Auto) Vancomycin Trough Phenytoin Crossmatch 10/07/20 10/07/20 10/07/20 00:35 02:22 03:16 WBC RBC Hgb Hct MCV MCH MCHC RDW Plt Count Lymph % (Auto) [place] % (Auto) Lymph # (Auto) [place] # (Auto) Baso # (Auto) Seg Neutrophils % Seg Neuts % (Manual) Lymphocytes % (Manual) Monocytes % (Manual) Nucleated RBC % Seg Neutrophils # Seg Neutrophils # Man Lymphocytes # (Manual) Monocytes # (Manual) PT INR APTT Fibrinogen D-Dimer ABG pH POC ABG pCO2 POC ABG pO2 ABG pO2 ABG HCO3 ABG Base Excess ABG Hemoglobin 11.6 L ABG Oxyhemoglobin ABG Sodium ABG Potassium ABG Chloride ABG Glucose 156 H VBG pH Oxyhemoglobin Carboxyhemoglobin 0.3 L Sodium Potassium Chloride Carbon Dioxide BUN Creatinine Glucose POC Glucose 124 H Lactic Acid Calcium Ionized Calcium Magnesium 5.90 H AST ALT Alkaline Phosphatase Lactate Dehydrogenase NT-Pro-B Natriuret Pep Total Protein Albumin Arterial Blood Glucose 156 H Arterial Blood Ionized Calcium 4.2 L Urine WBC (Auto) Vancomycin Trough Phenytoin Crossmatch 10/07/20 10/07/20 10/07/20 04:06 05:45 07:05 WBC 19.2 H RBC 3.57 L Hgb Hct MCV MCH MCHC 35 H RDW 17.1 H Plt Count 129 L Lymph % (Auto) [place] % (Auto) Lymph # (Auto) [place] # (Auto) Baso # (Auto) Seg Neutrophils % Seg Neuts % (Manual) 94.0 H Lymphocytes % (Manual) 6.0 L Monocytes % (Manual) Nucleated RBC % Seg Neutrophils # Seg Neutrophils # Man 18.0 H Lymphocytes # (Manual) Monocytes # (Manual) PT INR APTT Fibrinogen D-Dimer ABG pH POC ABG pCO2 POC ABG pO2 ABG pO2 ABG HCO3 ABG Base Excess ABG Hemoglobin ABG Oxyhemoglobin ABG Sodium ABG Potassium ABG Chloride ABG Glucose VBG pH Oxyhemoglobin Carboxyhemoglobin Sodium Potassium Chloride Carbon Dioxide BUN Creatinine Glucose POC Glucose 135 H 149 H Lactic Acid Calcium Ionized Calcium Magnesium AST ALT Alkaline Phosphatase Lactate Dehydrogenase NT-Pro-B Natriuret Pep Total Protein Albumin Arterial Blood Glucose Arterial Blood Ionized Calcium Urine WBC (Auto) Vancomycin Trough Phenytoin Crossmatch 10/07/20 10/07/20 10/07/20 07:05 07:05 12:21 WBC RBC Hgb Hct MCV MCH MCHC RDW Plt Count Lymph % (Auto) [place] % (Auto) Lymph # (Auto) [place] # (Auto) Baso # (Auto) Seg Neutrophils % Seg Neuts % (Manual) Lymphocytes % (Manual) Monocytes % (Manual) Nucleated RBC % Seg Neutrophils # Seg Neutrophils # Man Lymphocytes # (Manual) Monocytes # (Manual) PT INR APTT Fibrinogen D-Dimer ABG pH POC ABG pCO2 POC ABG pO2 ABG pO2 ABG HCO3 ABG Base Excess ABG Hemoglobin ABG Oxyhemoglobin ABG Sodium ABG Potassium ABG Chloride ABG Glucose VBG pH Oxyhemoglobin Carboxyhemoglobin Sodium Potassium Chloride Carbon Dioxide BUN 21 H Creatinine 1.7 H Glucose 171 H POC Glucose 124 H Lactic Acid Calcium 7.4 L Ionized Calcium Magnesium 6.10 H AST 245 H ALT 147 H Alkaline Phosphatase Lactate Dehydrogenase NT-Pro-B Natriuret Pep Total Protein 5.3 L Albumin 2.8 L Arterial Blood Glucose Arterial Blood Ionized Calcium Urine WBC (Auto) Vancomycin Trough Phenytoin Crossmatch 10/07/20 10/07/20 10/07/20 19:52 21:00 21:50 WBC RBC Hgb Hct MCV MCH MCHC RDW Plt Count Lymph % (Auto) [place] % (Auto) Lymph # (Auto) [place] # (Auto) Baso # (Auto) Seg Neutrophils % Seg Neuts % (Manual) Lymphocytes % (Manual) Monocytes % (Manual) Nucleated RBC % Seg Neutrophils # Seg Neutrophils # Man Lymphocytes # (Manual) Monocytes # (Manual) PT INR APTT Fibrinogen D-Dimer ABG pH POC ABG pCO2 POC ABG pO2 ABG pO2 ABG HCO3 ABG Base Excess ABG Hemoglobin ABG Oxyhemoglobin ABG Sodium ABG Potassium ABG Chloride ABG Glucose VBG pH Oxyhemoglobin Carboxyhemoglobin Sodium Potassium Chloride Carbon Dioxide BUN Creatinine Glucose POC Glucose 193 H 138 H Lactic Acid Calcium Ionized Calcium 4.4 L Magnesium AST ALT Alkaline Phosphatase Lactate Dehydrogenase NT-Pro-B Natriuret Pep Total Protein Albumin Arterial Blood Glucose Arterial Blood Ionized Calcium Urine WBC (Auto) Vancomycin Trough Phenytoin Crossmatch 10/07/20 10/08/20 10/08/20 23:41 04:20 05:30 WBC RBC Hgb Hct MCV MCH MCHC RDW Plt Count Lymph % (Auto) [place] % (Auto) Lymph # (Auto) [place] # (Auto) Baso # (Auto) Seg Neutrophils % Seg Neuts % (Manual) Lymphocytes % (Manual) Monocytes % (Manual) Nucleated RBC % Seg Neutrophils # Seg Neutrophils # Man Lymphocytes # (Manual) Monocytes # (Manual) PT INR APTT Fibrinogen D-Dimer ABG pH 7.467 H POC ABG pCO2 POC ABG pO2 189.8 H ABG pO2 ABG HCO3 ABG Base Excess ABG Hemoglobin 10.8 L ABG Oxyhemoglobin ABG Sodium ABG Potassium ABG Chloride ABG Glucose 133 H VBG pH Oxyhemoglobin Carboxyhemoglobin Sodium Potassium Chloride Carbon Dioxide BUN Creatinine Glucose POC Glucose 118 H 114 H Lactic Acid Calcium Ionized Calcium Magnesium AST ALT Alkaline Phosphatase Lactate Dehydrogenase NT-Pro-B Natriuret Pep Total Protein Albumin Arterial Blood Glucose 133 H Arterial Blood Ionized Calcium 4.2 L Urine WBC (Auto) Vancomycin Trough Phenytoin Crossmatch 10/08/20 10/08/20 10/08/20 05:43 06:42 06:42 WBC 23.6 H RBC 3.54 L Hgb Hct MCV MCH MCHC RDW 17.8 H Plt Count Lymph % (Auto) [place] % (Auto) Lymph # (Auto) [place] # (Auto) Baso # (Auto) Seg Neutrophils % Seg Neuts % (Manual) 93.0 H Lymphocytes % (Manual) 3.0 L Monocytes % (Manual) Nucleated RBC % 1.0 H Seg Neutrophils # Seg Neutrophils # Man 21.9 H Lymphocytes # (Manual) 0.7 L Monocytes # (Manual) 0.9 H PT INR APTT Fibrinogen D-Dimer ABG pH POC ABG pCO2 POC ABG pO2 ABG pO2 ABG HCO3 ABG Base Excess ABG Hemoglobin ABG Oxyhemoglobin ABG Sodium ABG Potassium ABG Chloride ABG Glucose VBG pH Oxyhemoglobin Carboxyhemoglobin Sodium Potassium Chloride Carbon Dioxide BUN 28 H Creatinine 1.6 H Glucose 141 H POC Glucose 126 H Lactic Acid Calcium 7.6 L Ionized Calcium Magnesium AST 162 H ALT 103 H Alkaline Phosphatase Lactate Dehydrogenase NT-Pro-B Natriuret Pep Total Protein 5.4 L Albumin 2.7 L Arterial Blood Glucose Arterial Blood Ionized Calcium Urine WBC (Auto) Vancomycin Trough Phenytoin Crossmatch 10/08/20 10/08/20 10/08/20 11:20 16:05 20:14 WBC RBC Hgb Hct MCV MCH MCHC RDW Plt Count Lymph % (Auto) [place] % (Auto) Lymph # (Auto) [place] # (Auto) Baso # (Auto) Seg Neutrophils % Seg Neuts % (Manual) Lymphocytes % (Manual) Monocytes % (Manual) Nucleated RBC % Seg Neutrophils # Seg Neutrophils # Man Lymphocytes # (Manual) Monocytes # (Manual) PT INR APTT Fibrinogen D-Dimer ABG pH POC ABG pCO2 POC ABG pO2 ABG pO2 ABG HCO3 ABG Base Excess ABG Hemoglobin ABG Oxyhemoglobin ABG Sodium ABG Potassium ABG Chloride ABG Glucose VBG pH Oxyhemoglobin Carboxyhemoglobin Sodium Potassium Chloride Carbon Dioxide BUN Creatinine Glucose POC Glucose 127 H 172 H 147 H Lactic Acid Calcium Ionized Calcium Magnesium AST ALT Alkaline Phosphatase Lactate Dehydrogenase NT-Pro-B Natriuret Pep Total Protein Albumin Arterial Blood Glucose Arterial Blood Ionized Calcium Urine WBC (Auto) Vancomycin Trough Phenytoin Crossmatch 10/08/20 10/08/20 10/09/20 21:27 23:24 02:10 WBC RBC Hgb Hct MCV MCH MCHC RDW Plt Count Lymph % (Auto) [place] % (Auto) Lymph # (Auto) [place] # (Auto) Baso # (Auto) Seg Neutrophils % Seg Neuts % (Manual) Lymphocytes % (Manual) Monocytes % (Manual) Nucleated RBC % Seg Neutrophils # Seg Neutrophils # Man Lymphocytes # (Manual) Monocytes # (Manual) PT INR APTT Fibrinogen D-Dimer ABG pH POC ABG pCO2 POC ABG pO2 ABG pO2 ABG HCO3 ABG Base Excess ABG Hemoglobin ABG Oxyhemoglobin ABG Sodium ABG Potassium ABG Chloride ABG Glucose VBG pH Oxyhemoglobin Carboxyhemoglobin Sodium Potassium Chloride Carbon Dioxide BUN Creatinine Glucose POC Glucose 140 H 135 H 111 H Lactic Acid Calcium Ionized Calcium Magnesium AST ALT Alkaline Phosphatase Lactate Dehydrogenase NT-Pro-B Natriuret Pep Total Protein Albumin Arterial Blood Glucose Arterial Blood Ionized Calcium Urine WBC (Auto) Vancomycin Trough Phenytoin Crossmatch 10/09/20 10/09/20 10/09/20 03:44 04:39 05:46 WBC 19.7 H RBC 3.51 L Hgb Hct MCV MCH MCHC RDW 17.7 H Plt Count Lymph % (Auto) [place] % (Auto) Lymph # (Auto) [place] # (Auto) Baso # (Auto) Seg Neutrophils % Seg Neuts % (Manual) 86.0 H Lymphocytes % (Manual) 4.0 L Monocytes % (Manual) 9.0 H Nucleated RBC % Seg Neutrophils # Seg Neutrophils # Man 16.9 H Lymphocytes # (Manual) 0.8 L Monocytes # (Manual) 1.8 H PT INR APTT Fibrinogen D-Dimer ABG pH 7.513 H POC ABG pCO2 POC ABG pO2 33.6 L ABG pO2 ABG HCO3 ABG Base Excess ABG Hemoglobin 11.1 L ABG Oxyhemoglobin 70.2 L ABG Sodium ABG Potassium 3.2 L ABG Chloride 108.0 H ABG Glucose 108 H VBG pH Oxyhemoglobin Carboxyhemoglobin Sodium Potassium Chloride Carbon Dioxide BUN Creatinine Glucose POC Glucose 109 H Lactic Acid Calcium Ionized Calcium Magnesium AST ALT Alkaline Phosphatase Lactate Dehydrogenase NT-Pro-B Natriuret Pep Total Protein Albumin Arterial Blood Glucose 108 H Arterial Blood Ionized Calcium 4.3 L Urine WBC (Auto) Vancomycin Trough Phenytoin Crossmatch 10/09/20 10/10/20 10/10/20 05:46 04:00 04:00 WBC 18.4 H RBC Hgb Hct MCV MCH MCHC RDW 17.5 H Plt Count Lymph % (Auto) 9.8 L [place] % (Auto) 8.8 H Lymph # (Auto) [place] # (Auto) 1.6 H Baso # (Auto) Seg Neutrophils % 80.0 H Seg Neuts % (Manual) Lymphocytes % (Manual) Monocytes % (Manual) Nucleated RBC % Seg Neutrophils # 14.7 H Seg Neutrophils # Man Lymphocytes # (Manual) Monocytes # (Manual) PT INR APTT Fibrinogen D-Dimer ABG pH POC ABG pCO2 POC ABG pO2 ABG pO2 ABG HCO3 ABG Base Excess ABG Hemoglobin ABG Oxyhemoglobin ABG Sodium ABG Potassium ABG Chloride ABG Glucose VBG pH Oxyhemoglobin Carboxyhemoglobin Sodium 146 H Potassium 3.2 L 2.9 L* Chloride 108.9 H 112.6 H Carbon Dioxide BUN 34 H 28 H Creatinine 1.4 H 1.3 H Glucose 109 H 101 H POC Glucose Lactic Acid Calcium 7.6 L 7.8 L Ionized Calcium Magnesium AST 137 H 122 H ALT 99 H 81 H Alkaline Phosphatase Lactate Dehydrogenase NT-Pro-B Natriuret Pep Total Protein 5.1 L 5.2 L Albumin 2.6 L 2.7 L Arterial Blood Glucose Arterial Blood Ionized Calcium Urine WBC (Auto) Vancomycin Trough Phenytoin Crossmatch 10/10/20 10/10/20 10/11/20 04:42 09:50 00:44 WBC RBC Hgb Hct MCV MCH MCHC RDW Plt Count Lymph % (Auto) [place] % (Auto) Lymph # (Auto) [place] # (Auto) Baso # (Auto) Seg Neutrophils % Seg Neuts % (Manual) Lymphocytes % (Manual) Monocytes % (Manual) Nucleated RBC % Seg Neutrophils # Seg Neutrophils # Man Lymphocytes # (Manual) Monocytes # (Manual) PT INR APTT Fibrinogen D-Dimer ABG pH 7.534 H POC ABG pCO2 POC ABG pO2 ABG pO2 95.2 H ABG HCO3 ABG Base Excess ABG Hemoglobin 11.3 L ABG Oxyhemoglobin ABG Sodium ABG Potassium ABG Chloride ABG Glucose VBG pH Oxyhemoglobin Carboxyhemoglobin Sodium Potassium Chloride Carbon Dioxide BUN Creatinine Glucose POC Glucose 109 H 106 H Lactic Acid Calcium Ionized Calcium Magnesium AST ALT Alkaline Phosphatase Lactate Dehydrogenase NT-Pro-B Natriuret Pep Total Protein Albumin Arterial Blood Glucose Arterial Blood Ionized Calcium Urine WBC (Auto) Vancomycin Trough Phenytoin Crossmatch 10/11/20 10/11/20 10/11/20 04:00 04:00 06:08 WBC 27.0 H RBC Hgb Hct MCV MCH MCHC RDW 17.7 H Plt Count Lymph % (Auto) 6.3 L [place] % (Auto) Lymph # (Auto) [place] # (Auto) 1.5 H Baso # (Auto) Seg Neutrophils % 87.1 H Seg Neuts % (Manual) Lymphocytes % (Manual) Monocytes % (Manual) Nucleated RBC % Seg Neutrophils # 23.5 H Seg Neutrophils # Man Lymphocytes # (Manual) Monocytes # (Manual) PT INR APTT Fibrinogen D-Dimer ABG pH POC ABG pCO2 POC ABG pO2 ABG pO2 ABG HCO3 ABG Base Excess ABG Hemoglobin ABG Oxyhemoglobin ABG Sodium ABG Potassium ABG Chloride ABG Glucose VBG pH Oxyhemoglobin Carboxyhemoglobin Sodium Potassium 3.2 L Chloride 110.4 H Carbon Dioxide 19 L BUN 22 H Creatinine Glucose 116 H POC Glucose 107 H Lactic Acid Calcium 7.7 L Ionized Calcium Magnesium 1.60 L AST ALT Alkaline Phosphatase Lactate Dehydrogenase NT-Pro-B Natriuret Pep Total Protein Albumin Arterial Blood Glucose Arterial Blood Ionized Calcium Urine WBC (Auto) Vancomycin Trough Phenytoin Crossmatch 10/11/20 10/11/20 10/12/20 11:41 13:26 03:52 WBC RBC Hgb Hct MCV MCH MCHC RDW Plt Count Lymph % (Auto) [place] % (Auto) Lymph # (Auto) [place] # (Auto) Baso # (Auto) Seg Neutrophils % Seg Neuts % (Manual) Lymphocytes % (Manual) Monocytes % (Manual) Nucleated RBC % Seg Neutrophils # Seg Neutrophils # Man Lymphocytes # (Manual) Monocytes # (Manual) PT INR APTT Fibrinogen D-Dimer ABG pH POC ABG pCO2 POC ABG pO2 ABG pO2 ABG HCO3 ABG Base Excess ABG Hemoglobin ABG Oxyhemoglobin ABG Sodium ABG Potassium ABG Chloride ABG Glucose VBG pH Oxyhemoglobin Carboxyhemoglobin Sodium Potassium Chloride Carbon Dioxide BUN Creatinine Glucose POC Glucose 116 H 114 H Lactic Acid Calcium Ionized Calcium Magnesium AST ALT Alkaline Phosphatase Lactate Dehydrogenase NT-Pro-B Natriuret Pep Total Protein Albumin Arterial Blood Glucose Arterial Blood Ionized Calcium Urine WBC (Auto) 24.0 H Vancomycin Trough Phenytoin Crossmatch 10/12/20 10/12/20 10/12/20 04:24 14:47 21:33 WBC RBC Hgb Hct MCV MCH MCHC RDW Plt Count Lymph % (Auto) [place] % (Auto) Lymph # (Auto) [place] # (Auto) Baso # (Auto) Seg Neutrophils % Seg Neuts % (Manual) Lymphocytes % (Manual) Monocytes % (Manual) Nucleated RBC % Seg Neutrophils # Seg Neutrophils # Man Lymphocytes # (Manual) Monocytes # (Manual) PT INR APTT Fibrinogen D-Dimer ABG pH POC ABG pCO2 POC ABG pO2 ABG pO2 ABG HCO3 ABG Base Excess ABG Hemoglobin ABG Oxyhemoglobin ABG Sodium ABG Potassium ABG Chloride ABG Glucose VBG pH Oxyhemoglobin Carboxyhemoglobin Sodium Potassium Chloride 109.9 H Carbon Dioxide 13 L BUN 18 H Creatinine Glucose 119 H POC Glucose 107 H Lactic Acid Calcium 7.6 L Ionized Calcium Magnesium 1.60 L AST ALT Alkaline Phosphatase Lactate Dehydrogenase NT-Pro-B Natriuret Pep Total Protein Albumin Arterial Blood Glucose Arterial Blood Ionized Calcium Urine WBC (Auto) Vancomycin Trough Phenytoin Crossmatch 10/12/20 10/12/20 10/13/20 Unknown Unknown 07:00 WBC 24.3 H RBC 3.38 L Hgb 9.8 L Hct MCV MCH MCHC RDW 18.7 H Plt Count Lymph % (Auto) [place] % (Auto) Lymph # (Auto) [place] # (Auto) Baso # (Auto) Seg Neutrophils % Seg Neuts % (Manual) 93.5 H Lymphocytes % (Manual) 4.5 L Monocytes % (Manual) Nucleated RBC % Seg Neutrophils # Seg Neutrophils # Man 22.7 H Lymphocytes # (Manual) 1.1 L Monocytes # (Manual) PT INR APTT Fibrinogen D-Dimer ABG pH POC ABG pCO2 POC ABG pO2 ABG pO2 ABG HCO3 ABG Base Excess ABG Hemoglobin ABG Oxyhemoglobin ABG Sodium ABG Potassium ABG Chloride ABG Glucose VBG pH Oxyhemoglobin Carboxyhemoglobin Sodium 135 L D Potassium 3.1 L Chloride Carbon Dioxide 17 L BUN Creatinine Glucose 510 H* POC Glucose Lactic Acid Calcium 7.2 L Ionized Calcium Magnesium AST ALT Alkaline Phosphatase Lactate Dehydrogenase NT-Pro-B Natriuret Pep Total Protein Albumin Arterial Blood Glucose Arterial Blood Ionized Calcium Urine WBC (Auto) Vancomycin Trough Phenytoin 5.7 L Crossmatch 10/13/20 10/13/20 10/13/20 07:00 07:00 07:18 WBC 23.6 H RBC 3.26 L Hgb 9.4 L Hct 28.7 L MCV MCH MCHC RDW 18.3 H Plt Count Lymph % (Auto) [place] % (Auto) Lymph # (Auto) [place] # (Auto) Baso # (Auto) Seg Neutrophils % Seg Neuts % (Manual) Lymphocytes % (Manual) Monocytes % (Manual) Nucleated RBC % Seg Neutrophils # Seg Neutrophils # Man Lymphocytes # (Manual) Monocytes # (Manual) PT INR APTT Fibrinogen D-Dimer ABG pH 7.473 H POC ABG pCO2 20.7 L POC ABG pO2 137.9 H ABG pO2 ABG HCO3 ABG Base Excess ABG Hemoglobin 11.2 L ABG Oxyhemoglobin 98.3 H ABG Sodium 135.9 L ABG Potassium ABG Chloride 111.0 H ABG Glucose 109 H VBG pH Oxyhemoglobin Carboxyhemoglobin 0.3 L Sodium 135 L Potassium 3.5 L Chloride 109.1 H Carbon Dioxide 18 L BUN Creatinine Glucose POC Glucose Lactic Acid Calcium 7.3 L Ionized Calcium Magnesium 1.60 L AST ALT Alkaline Phosphatase Lactate Dehydrogenase NT-Pro-B Natriuret Pep Total Protein Albumin Arterial Blood Glucose 109 H Arterial Blood Ionized Calcium Urine WBC (Auto) Vancomycin Trough Phenytoin Crossmatch 10/14/20 10/14/20 10/15/20 04:00 04:00 05:50 WBC 28.6 H 23.2 H RBC 3.61 L 3.43 L Hgb 9.9 L Hct 30.0 L MCV MCH MCHC RDW 18.3 H 18.2 H Plt Count Lymph % (Auto) [place] % (Auto) Lymph # (Auto) [place] # (Auto) Baso # (Auto) Seg Neutrophils % Seg Neuts % (Manual) 88.0 H 90.0 H Lymphocytes % (Manual) 5.0 L 4.0 L Monocytes % (Manual) Nucleated RBC % Seg Neutrophils # Seg Neutrophils # Man 25.2 H 20.9 H Lymphocytes # (Manual) 0.9 L Monocytes # (Manual) 1.4 H 0.9 H PT INR APTT Fibrinogen D-Dimer ABG pH POC ABG pCO2 POC ABG pO2 ABG pO2 ABG HCO3 ABG Base Excess ABG Hemoglobin ABG Oxyhemoglobin ABG Sodium ABG Potassium ABG Chloride ABG Glucose VBG pH Oxyhemoglobin Carboxyhemoglobin Sodium Potassium Chloride 109.9 H Carbon Dioxide 17 L BUN Creatinine Glucose POC Glucose Lactic Acid Calcium Ionized Calcium Magnesium AST ALT Alkaline Phosphatase Lactate Dehydrogenase NT-Pro-B Natriuret Pep Total Protein Albumin Arterial Blood Glucose Arterial Blood Ionized Calcium Urine WBC (Auto) Vancomycin Trough Phenytoin Crossmatch 1210/16/20 10/17/20 05:50 11:57 04:57 WBC 15.2 H RBC 3.43 L Hgb Hct MCV MCH MCHC RDW 18.1 H Plt Count Lymph % (Auto) [place] % (Auto) Lymph # (Auto) [place] # (Auto) Baso # (Auto) Seg Neutrophils % Seg Neuts % (Manual) Lymphocytes % (Manual) Monocytes % (Manual) Nucleated RBC % Seg Neutrophils # Seg Neutrophils # Man Lymphocytes # (Manual) Monocytes # (Manual) PT INR APTT Fibrinogen D-Dimer ABG pH POC ABG pCO2 POC ABG pO2 ABG pO2 ABG HCO3 ABG Base Excess ABG Hemoglobin ABG Oxyhemoglobin ABG Sodium ABG Potassium ABG Chloride ABG Glucose VBG pH Oxyhemoglobin Carboxyhemoglobin Sodium Potassium Chloride 110.3 H Carbon Dioxide 18 L BUN Creatinine Glucose 105 H POC Glucose 111 H Lactic Acid Calcium 8.3 L Ionized Calcium Magnesium AST ALT Alkaline Phosphatase Lactate Dehydrogenase NT-Pro-B Natriuret Pep Total Protein Albumin Arterial Blood Glucose Arterial Blood Ionized Calcium Urine WBC (Auto) Vancomycin Trough Phenytoin Crossmatch 10/17/20 10/17/20 10/18/20 05:25 21:16 01:31 WBC RBC Hgb Hct MCV MCH MCHC RDW Plt Count Lymph % (Auto) [place] % (Auto) Lymph # (Auto) [place] # (Auto) Baso # (Auto) Seg Neutrophils % Seg Neuts % (Manual) Lymphocytes % (Manual) Monocytes % (Manual) Nucleated RBC % Seg Neutrophils # Seg Neutrophils # Man Lymphocytes # (Manual) Monocytes # (Manual) PT INR APTT Fibrinogen D-Dimer ABG pH POC ABG pCO2 POC ABG pO2 ABG pO2 ABG HCO3 ABG Base Excess ABG Hemoglobin ABG Oxyhemoglobin ABG Sodium ABG Potassium ABG Chloride ABG Glucose VBG pH Oxyhemoglobin Carboxyhemoglobin Sodium Potassium Chloride Carbon Dioxide BUN Creatinine Glucose POC Glucose 107 H 106 H 119 H Lactic Acid Calcium Ionized Calcium Magnesium AST ALT Alkaline Phosphatase Lactate Dehydrogenase NT-Pro-B Natriuret Pep Total Protein Albumin Arterial Blood Glucose Arterial Blood Ionized Calcium Urine WBC (Auto) Vancomycin Trough Phenytoin Crossmatch 10/18/20 10/18/20 10/19/20 05:45 11:23 01:14 WBC RBC Hgb Hct MCV MCH MCHC RDW Plt Count Lymph % (Auto) [place] % (Auto) Lymph # (Auto) [place] # (Auto) Baso # (Auto) Seg Neutrophils % Seg Neuts % (Manual) Lymphocytes % (Manual) Monocytes % (Manual) Nucleated RBC % Seg Neutrophils # Seg Neutrophils # Man Lymphocytes # (Manual) Monocytes # (Manual) PT INR APTT Fibrinogen D-Dimer ABG pH POC ABG pCO2 POC ABG pO2 ABG pO2 ABG HCO3 ABG Base Excess ABG Hemoglobin ABG Oxyhemoglobin ABG Sodium ABG Potassium ABG Chloride ABG Glucose VBG pH Oxyhemoglobin Carboxyhemoglobin Sodium Potassium Chloride Carbon Dioxide BUN Creatinine Glucose POC Glucose 106 H 115 H 108 H Lactic Acid Calcium Ionized Calcium Magnesium AST ALT Alkaline Phosphatase Lactate Dehydrogenase NT-Pro-B Natriuret Pep Total Protein Albumin Arterial Blood Glucose Arterial Blood Ionized Calcium Urine WBC (Auto) Vancomycin Trough Phenytoin Crossmatch 10/19/20 10/20/20 10/20/20 09:57 05:40 07:59 WBC RBC Hgb Hct MCV MCH MCHC RDW Plt Count Lymph % (Auto) [place] % (Auto) Lymph # (Auto) [place] # (Auto) Baso # (Auto) Seg Neutrophils % Seg Neuts % (Manual) Lymphocytes % (Manual) Monocytes % (Manual) Nucleated RBC % Seg Neutrophils # Seg Neutrophils # Man Lymphocytes # (Manual) Monocytes # (Manual) PT INR APTT Fibrinogen D-Dimer ABG pH POC ABG pCO2 POC ABG pO2 ABG pO2 ABG HCO3 ABG Base Excess ABG Hemoglobin ABG Oxyhemoglobin ABG Sodium ABG Potassium ABG Chloride ABG Glucose VBG pH Oxyhemoglobin Carboxyhemoglobin Sodium Potassium Chloride Carbon Dioxide BUN Creatinine Glucose 106 H POC Glucose 122 H 109 H Lactic Acid Calcium Ionized Calcium Magnesium AST ALT Alkaline Phosphatase Lactate Dehydrogenase NT-Pro-B Natriuret Pep Total Protein Albumin Arterial Blood Glucose Arterial Blood Ionized Calcium Urine WBC (Auto) Vancomycin Trough Phenytoin Crossmatch 10/20/20 10/20/20 10/21/20 16:52 16:52 13:54 WBC 18.8 H 17.0 H RBC Hgb Hct MCV MCH MCHC RDW 17.7 H 17.8 H Plt Count 547 H 544 H Lymph % (Auto) 11.2 L [place] % (Auto) 8.1 H Lymph # (Auto) [place] # (Auto) 1.5 H Baso # (Auto) 0.2 H Seg Neutrophils % 78.8 H Seg Neuts % (Manual) Lymphocytes % (Manual) Monocytes % (Manual) Nucleated RBC % Seg Neutrophils # 14.8 H Seg Neutrophils # Man Lymphocytes # (Manual) Monocytes # (Manual) PT INR APTT Fibrinogen D-Dimer ABG pH POC ABG pCO2 POC ABG pO2 ABG pO2 ABG HCO3 ABG Base Excess ABG Hemoglobin ABG Oxyhemoglobin ABG Sodium ABG Potassium ABG Chloride ABG Glucose VBG pH Oxyhemoglobin Carboxyhemoglobin Sodium Potassium Chloride Carbon Dioxide BUN Creatinine Glucose POC Glucose Lactic Acid Calcium Ionized Calcium Magnesium AST ALT Alkaline Phosphatase Lactate Dehydrogenase NT-Pro-B Natriuret Pep Total Protein Albumin Arterial Blood Glucose Arterial Blood Ionized Calcium Urine WBC (Auto) Vancomycin Trough 34.5 H Phenytoin Crossmatch 10/21/20 10/22/20 10/23/20 13:54 07:26 05:34 WBC 18.7 H 13.0 H RBC 3.64 L 3.50 L Hgb Hct 30.0 L MCV MCH MCHC 35 H RDW 17.7 H 17.6 H Plt Count 502 H 503 H Lymph % (Auto) [place] % (Auto) Lymph # (Auto) [place] # (Auto) Baso # (Auto) Seg Neutrophils % Seg Neuts % (Manual) Lymphocytes % (Manual) Monocytes % (Manual) Nucleated RBC % Seg Neutrophils # Seg Neutrophils # Man Lymphocytes # (Manual) Monocytes # (Manual) PT INR APTT Fibrinogen D-Dimer ABG pH POC ABG pCO2 POC ABG pO2 ABG pO2 ABG HCO3 ABG Base Excess ABG Hemoglobin ABG Oxyhemoglobin ABG Sodium ABG Potassium ABG Chloride ABG Glucose VBG pH Oxyhemoglobin Carboxyhemoglobin Sodium 136 L Potassium Chloride Carbon Dioxide BUN Creatinine Glucose 120 H POC Glucose Lactic Acid Calcium Ionized Calcium Magnesium AST ALT Alkaline Phosphatase Lactate Dehydrogenase NT-Pro-B Natriuret Pep Total Protein Albumin Arterial Blood Glucose Arterial Blood Ionized Calcium Urine WBC (Auto) Vancomycin Trough Phenytoin Crossmatch 10/23/20 05:34 WBC RBC Hgb Hct MCV MCH MCHC RDW Plt Count Lymph % (Auto) [place] % (Auto) Lymph # (Auto) [place] # (Auto) Baso # (Auto) Seg Neutrophils % Seg Neuts % (Manual) Lymphocytes % (Manual) Monocytes % (Manual) Nucleated RBC % Seg Neutrophils # Seg Neutrophils # Man Lymphocytes # (Manual) Monocytes # (Manual) PT INR APTT Fibrinogen D-Dimer ABG pH POC ABG pCO2 POC ABG pO2 ABG pO2 ABG HCO3 ABG Base Excess ABG Hemoglobin ABG Oxyhemoglobin ABG Sodium ABG Potassium ABG Chloride ABG Glucose VBG pH Oxyhemoglobin Carboxyhemoglobin Sodium 135 L Potassium Chloride Carbon Dioxide BUN Creatinine Glucose 105 H POC Glucose Lactic Acid Calcium Ionized Calcium Magnesium AST ALT Alkaline Phosphatase Lactate Dehydrogenase NT-Pro-B Natriuret Pep Total Protein Albumin Arterial Blood Glucose Arterial Blood Ionized Calcium Urine WBC (Auto) Vancomycin Trough Phenytoin Crossmatch
--- NOTE | 2020-10-23 12:15 | Progress Note ---
Assessment and Plan Cultures: 10/05/2020 Blood culture: no growth 10/11/2020 blood culture: No growth 10/11/2020 tracheal aspirate: Usual respiratory jaylan 10/14/2020 blood culture: Enterobacter, coag negative staph. Sensitivities in "scanned reports" 10/15/2020 blood culture: negative A/P: 30-year-old female with GERD, hypertension, seizure disorder was admitted to the hospital at 36 weeks with seizures. She became hypoxic and pulseless requiring CPR. Following emergent section, patient developed hemorrhage, DIC. She has been admitted to ICU, remains on the vent: #Persistent fever, sepsis is likely secondary to bacteremia: ?PICC, no acute intra-abdominal source noted on CT. New PICC was placed after the most recent (negative) cultures were obtained. #Status post arrest 10/07/2020: Apparently had a brief code due to ?ET tube c lot/plugging. #Initial shock, DIC/persistent fever: Secondary to hemorrhage, ?possible sepsis. Possible pneumonia versus fluid overload. ?Central fever v/s from VTE. Noted diarrhea ? Cdiff + #Acute kidney injury: resolved #Acute respiratory failure: remains on the vent. #Transaminitis: ?HELLP. Improving. #Preeclampsia # hemorrhage: Status post , status post supracervical hysterectomy. #Encephalopathy post cardiac arrest: Neurology on board. #C. difficile: Completed PO vancomycin Recs: -de-esclated back to cefepime given sensitivity results. Added metronidazole. -Completed p.o. Vanco -Follow up CT abdomen pelvis given Enterobacter which is enteric pathogen to rule out any source control issues. -Completed IV vanco for CoNS bacteremia Dr. Craven covering this weekend. Julee Oneill MD [facility] ([facility]) O: [phone] F: [phone] Subjective Date of service: 10/23/20 Principal diagnosis: Eclampsia/HELLP Syndrome, ADOLPH, DIC; s/p , s/p supracervical hyst Interval history: Afebrile, white count improved to 13. Objective - Exam Narrative Exam: Constitutional: awake, intubated, on the vent Head, Ears, Nose: Normocephalic, atraumatic. Eyes: Conjunctivae/corneas clear. No icterus.. Neck: trach Oral: MMM Cardiovascular: S1, S2 + Respiratory: AE fair bilaterally and equal GI: Soft, bowel sounds +. lower abdominal incision present, healing well Musculoskeletal: edematous extremities, no cyanosis. Skin: No rash or abscess Hem/Lymphatic: No palpable cervical or supraclavicular nodes. Psych: no agitation Neurological: awake, doesn't follow commands, but opens eyes,btrached on the vent, exam limited - Constitutional Vitals: Vital Signs Temp Pulse Resp BP Pulse Ox 99.3 F 89 19 124/70 100 10/23/20 03:20 10/23/20 11:00 10/23/20 11:00 10/23/20 11:00 10/23/20 11:00 Temperature -Last 24 Hours Temperature 99.3 F Temperature 98.4 F Temperature 99.0 F Temperature 99.1 F - Labs CBC & Chem 7: 10/23/20 05:34 10/23/20 05:34 Labs: Abnormal lab results 10/23/20 10/23/20 Range/Units 05:34 05:34 WBC 13.0 H (4.5-11.0) K/mm3 RBC 3.50 L (3.65-5.03) M/mm3 Hct 30.0 L (30.3-42.9) % MCHC 35 H (30-34) % RDW 17.6 H (13.2-15.2) % Plt Count 503 H (140-440) K/mm3 Sodium 135 L (137-145) mmol/L Glucose 105 H (65-100) mg/dL
--- NOTE | 2020-10-23 13:46 | Cat Scan Report ---
CT ABDOMEN AND PELVIS WITH CONTRAST HISTORY: persistent sepsis, r/o abscess. COMPARISON: 10/16/2020 TECHNIQUE: Helical CT images of the abdomen and pelvis were obtained following administration of intr avenous contrast. Sagittal and coronal reformatted images were reviewed. All CT scans at this [facility] are performed using CT dose reduction for ALARA by means of automated exposure control. CONTRAST: 100 ml of intravenous contrast administered. FINDINGS: Abdomen/pelvis: Cholecystectomy changes. The liver, pancreas, spleen, kidneys and adrenal glands are unremarkable. The aorta and vascular structures are unremarkable. A rectal tube is in position. A peg tube terminates in the stomach. There is no evidence for bowel ob struction. The appendix is not confidently identified. The bladder is decompressed with a Hamlin catheter and grossly unremarkable. The uterus is difficult t o identify but appears to be anteverted and unremarkable. Multiple bowel loops appear matted in the p rajeev obscuring the uterus. There is no obvious pelvic abscess or fluid collection. Surgical coils in the left ovarian vein are suspected, correlate with history. Lungs/bones: The lung bases are clear. The bony structures are unremarkable. IMPRESSION: Surgical changes are suspected in the pelvis probably representing remote changes. No absce ss is visualized on CT with contrast. No clear explanation for persistent sepsis/fevers. Signer Name: Adam Jordan Jr, MD Signed: 10/23/2020 1:42 PM Workstation Name: [id number]
--- NOTE | 2020-10-23 13:59 | Progress Note ---
Assessment and Plan Assessment and plan: 30 year old -Congolese female CHE 10/25/20 at 36w5d who presents with seizures in triage on 10/02/20. Pt was not able to provide history but per pt's , she presented to the hospital to return a 24 hour urine specimen for analysis. She then suddenly reported that she did not feel good. She was taken to labor and delivery and shortly after arrival, she began seizing. During this time, a code met was called because the patient became hypoxic. She was then noted to be without a pulse. Chest compressions were started immediately, and the patient was emergently taken to the operating room for delivery of the fetus. Off note, This patient has had care at [facility] with comanagement by [facility] since 11 wks complicated by ADHD, morbid obesity, generalized anxiety disorder, panic attacks, chronic narcotic use, fibromyalgia, GERD, Irritable Bowel Syndrome, Migraines, h/o endometrial ablation and ovarian vein embolization, genital herpes, insomnia, LGA fetus, nausea and vomiting, polyhydramnios, quad screen positive for Down's Syndrome, and previous x 3. She is GBS negative. Acute respiratory failure with hypoxia Sepsis Preeclampsia Cardiac arrest DIC (disseminated intravascular coagulation) Shock ADOLPH (acute kidney injury) Acute Metabolic Encephalopathy ?Hypoxic DVT SVT in the RUE 11:30: Pt brought to L&D triage for evaluation of possible labor. Pt accompanied by her spouse. Pt spouse poor historian; unable to obtain history- allergies at this time. Pt taken from registration to triage area via WC. Pt unresponsive, actively seizing with snorous respirations. assistant curator, Kassy, called and requesting assistance. 11:35: Multiple staff at bedside. Pt 02 sat 67% on nonrebreather, unable to read BP at this time. Yifan Theodore CRNA, at bedside for intubation and assistance with IV insertion. INT attempt by multiple RNs unsuccessful at this time. 11:42: Pt being bagged by KORIN, 02% 79%. No pulse palpated, compressions started at this time; bharati young called and Dr. Newberry preparing OR for emergent c/s. 11:44: Continued compressions on stretcher while transporting pt to OR 1. Pt being bagged with jaw thrust manuever in place by KORIN Stringer student. 11:45: Arrival to OR 1. Dr. Newberry and Dr. Portillo present for emergent c/s. Code team arrived for continued care. patient revived and c/s done Patient has been bleeding from C/s site followed by supracervical hysterectomy for severe bleeding Patient transfused multiple units of PRBC, Patient in DIC. Transferred to the ICU 10/03. Patient seen and examined at bedside this morning. Patient is nonresponsive and mechanically ventilated. On pressors. Labs reviewed-has leukocytosis, anemia, thrombocytopenia, ADOLPH and lactic acidosis. Started on IV antibiotics to cover possible sepsis secondary to DIC. Hematology oncology recommendations appreciated-needs additional cryoprecipitate and FFP. Monitor D-dimer, fibrinogen and frequent labs. Nephrology consulted for lactic acidosis and ADOLPH. 10/04. Remains mechanically ventilated. [place] antibiotics. Labs shows improved acidosis - lactic acid 3.5. Hb drop noted. Getting transfused 2 units PRBCs. Platelet count is ~40k. Continue to monitor labs closely. Critical care team on board. 10/05; xray reviewed, concerning for multifocal infilrate, likely underlying Pneumonia, will add ID consult to assist with management of this critically ill patient, start tube feed, closely monitor renal system 10/06: Resumed care, remains on mechanical ventilation. No active bleeding, H&H stable. Continue to monitor CBC and BMP. Continue IV antibiotic for underlying pneumonia. Follow critical care and ID recommendation. 10/07: Remains on mechanical ventilation. No active bleeding, H&H stable. Critical care following, wean off ventilation as tolerated. 10/08: Patient had another cardiac arrest last night. Remains on mechanical ventilation, update family. Continue supportive care -poor prognosis 10/09: Called patient mother and discussed about patient care and management. Answered all question to best of my knowledge and family satisfaction. Patient remains on mechanical ventilation, cardiac arrest x2 so far. Critically sick, poor prognosis 10/10: remains on mechanical ventilation. h/h stable, no active bleeding. monitor CBC/BMP 10/11: WBC trended up with diarrhea, started on vancomycin po. remains on MV, off pressor, tolerating TF 10/12: remains on MV, off pressor, tolerating TF. called family for update but unable to reach, could not leave message as it was full. cont supportive care, wean off vent as tolerated. 10/13/2020; patient is on mechanical ventilation, tolerating tube feeding. Patient has labored breathing. Neuro was consulted and recommend MRI. Patient is on Precedex. Rectal tube in place. 10/14/2020; patient is on mechanical ventilation, Precedex. Patient had fever and blood culture ordered. Patient is on IV vancomycin per ID recommendation. Neuro consulted and recommend MRI. Continue to monitor. Prognosis is guarded. 10/15/2020; patient is on mechanical ventilation, Precedex. Patient had fever and blood culture ordered. Patient is on IV vancomycin per ID recommendation. Neuro consulted and recommend MRI. Continue to monitor. Prognosis is guarded. 1: Remains with C.DIFF and Bactermia, Poor prognosis. No purposeful movement. MRI and EEG discussed with Intensvisit, Continue aggressive BP control. 10/18: Blood pressure better controlled MRI done 10/15 shows mild improvement in edema. We will continue to monitor mother was at bedside yesterday. Nursing documentation trach and PEG discussed with the mother including goals of care. She is still in denial about the gravity of her daughters her condition which is understandable considering her age. Continue aggressive management at this time. Await for bacteremia to clear by ID before placing PICC line. 10/19: Patient for possible PEG and Trach, ID following, repeat cultures remain negative. Poor prognosis 10/20: Pt noted to DVT and SVT in the RUE, Vascular consult and will also obtain Hematology for possible considering changing in Anticoagulation. CONTINUE TO MONITOR H/H and PLT. Family updated by [employer]ens[employer]. Heparin gtt started. Will check CBC and BMP 10/21: Continue supporive care, Diarrhea now resolving, But still with persistent Fever, May need repeat CT/AP per ID, still with profused Encephalopathy 10/22: Continue supportive care, weaning, awaiting repeat Imaging. FOLLOW Fever curve. Enoxparin restarted 10/23: Continue supportive care, wean as tolerated. The high probability of a clinically significant, sudden or life threatening deterioration of the [MULTIPLE ORGAN] system(s) required my full and direct attention, intervention and personal management. The aggregate critical care time was [35] minutes. This time is in addition to time spent performing reported procedures but includes the following: [X] Data Review and interpretation [X] Patient assessment and monitoring of vital signs [X] Documentation [X] Medication orders and management History Interval history: Patient seen and examined, remains critical ill on the ventilator. She is s/p Trach and PEG. Still not responding. Hospitalist Physical - Physical exam Narrative exam: VITAL SIGNS: Reviewed. GENERAL: Intubated HEAD: No signs of head trauma. Opens her eyes but no purposeful movement EYES: Pupils are equal. MOUTH: clear NECK: No adenopathy, no JVD. Trach CHEST: Rales posteriorly CARDIAC: normal S1 and S2, without murmurs, gallops, or rubs. ABDOMEN: PEG, Soft, non tender and non distended. surgical wound in tact, No rebound or guarding, and no masses palpated. Bowel Sounds normal. AVINASH drain intact with bloody fluid MUSCULOSKELETAL: No edema NEUROLOGIC EXAM: Intubated SKIN: No obvious lesions - Constitutional Vitals: Temp Pulse Resp BP Pulse Ox 99.1 F 89 19 124/70 100 10/23/20 12:00 10/23/20 11:00 10/23/20 11:00 10/23/20 11:00 10/23/20 11:00 General appearance: Present: other (Intubated, noncommunicative, does not try to respond) HEART Score - HEART Score Age: < 45 Risk factors: 1-2 risk factors - Critical Actions Critical Actions: >7 pts:50-65% risk of adverse cardiac event. Early invasive measures Results - Labs CBC & Chem 7: 10/23/20 05:34 10/23/20 05:34 Labs: Laboratory Last Values WBC 13.0 K/mm3 (4.5-11.0) H 10/23/20 05:34 RBC 3.50 M/mm3 (3.65-5.03) L 10/23/20 05:34 Hgb 10.4 gm/dl (10.1-14.3) 10/23/20 05:34 Hgb Comment See scanned result 10/04/20 Unknown Hct 30.0 % (30.3-42.9) L 10/23/20 05:34 MCV 86 fl (79-97) 10/23/20 05:34 MCH 30 pg (28-32) 10/23/20 05:34 MCHC 35 % (30-34) H 10/23/20 05:34 RDW 17.6 % (13.2-15.2) H 10/23/20 05:34 Plt Count 503 K/mm3 (140-440) H 10/23/20 05:34 Lymph % (Auto) 11.2 % (13.4-35.0) L 10/20/20 16:52 Dunn % (Auto) 8.1 % (0.0-7.3) H 10/20/20 16:52 Eos % (Auto) 0.8 % (0.0-4.3) 10/20/20 16:52 Baso % (Auto) 1.1 % (0.0-1.8) 10/20/20 16:52 Lymph # (Auto) 2.1 K/mm3 (1.2-5.4) 10/20/20 16:52 Dunn # (Auto) 1.5 K/mm3 (0.0-0.8) H 10/20/20 16:52 Eos # (Auto) 0.2 K/mm3 (0.0-0.4) 10/20/20 16:52 Baso # (Auto) 0.2 K/mm3 (0.0-0.1) H 10/20/20 16:52 Add Manual Diff Complete 10/15/20 05:50 Total Counted 100 10/15/20 05:50 Seg Neutrophils % 78.8 % (40.0-70.0) H 10/20/20 16:52 Seg Neuts % (Manual) 90.0 % (40.0-70.0) H 10/15/20 05:50 Band Neutrophils % 2.0 % 10/15/20 05:50 Lymphocytes % (Manual) 4.0 % (13.4-35.0) L 10/15/20 05:50 Reactive Lymphs % (Man) 1.0 % 10/02/20 12:18 Monocytes % (Manual) 4.0 % (0.0-7.3) 10/15/20 05:50 Eosinophils % (Manual) 1.0 % (0.0-4.3) 10/14/20 04:00 Myelocytes % 2.0 % 10/02/20 13:05 Metamyelocytes % 1.0 % 10/14/20 04:00 Nucleated RBC % Not Reportable 10/15/20 05:50 Seg Neutrophils # 14.8 K/mm3 (1.8-7.7) H 10/20/20 16:52 Seg Neutrophils # Man 20.9 K/mm3 (1.8-7.7) H 10/15/20 05:50 Band Neutrophils # 0.5 K/mm3 10/15/20 05:50 Lymphocytes # (Manual) 0.9 K/mm3 (1.2-5.4) L 10/15/20 05:50 Abs React Lymphs (Man) 0.0 K/mm3 10/15/20 05:50 Monocytes # (Manual) 0.9 K/mm3 (0.0-0.8) H 10/15/20 05:50 Eosinophils # (Manual) 0.0 K/mm3 (0.0-0.4) 10/15/20 05:50 Basophils # (Manual) 0.0 K/mm3 (0.0-0.1) 10/15/20 05:50 Metamyelocytes # 0.0 K/mm3 10/15/20 05:50 Myelocytes # 0.0 K/mm3 10/15/20 05:50 Promyelocytes # 0.0 K/mm3 10/15/20 05:50 Blast Cells # 0.0 K/mm3 10/15/20 05:50 WBC Morphology Not Reportable 10/15/20 05:50 Hypersegmented Neuts Not Reportable 10/15/20 05:50 Hyposegmented Neuts Not Reportable 10/15/20 05:50 Hypogranular Neuts Not Reportable 10/15/20 05:50 Smudge Cells Not Reportable 10/15/20 05:50 Toxic Granulation Not Reportable 10/15/20 05:50 Toxic Vacuolation Not Reportable 10/15/20 05:50 Dohle Bodies Not Reportable 10/15/20 05:50 Pelger-Huet Anomaly Not Reportable 10/15/20 05:50 Ester Rods Not Reportable 10/15/20 05:50 Platelet Estimate Consistent w auto 10/15/20 05:50 Clumped Platelets Not Reportable 10/15/20 05:50 Plt Clumps, EDTA Not Reportable 10/15/20 05:50 Large Platelets Not Reportable 10/15/20 05:50 Giant Platelets Not Reportable 10/15/20 05:50 Platelet Satelliting Not Reportable 10/15/20 05:50 Plt Morphology Comment Not Reportable 10/15/20 05:50 RBC Morphology Not Reportable 10/15/20 05:50 Dimorphic RBCs Not Reportable 10/15/20 05:50 Polychromasia Not Reportable 10/15/20 05:50 Hypochromasia Few 10/15/20 05:50 Poikilocytosis Not Reportable 10/15/20 05:50 Anisocytosis 1+ 10/15/20 05:50 Microcytosis Not Reportable 10/15/20 05:50 Macrocytosis Not Reportable 10/15/20 05:50 Spherocytes Not Reportable 10/15/20 05:50 Pappenheimer Bodies Not Reportable 10/15/20 05:50 Sickle Cells Not Reportable 10/15/20 05:50 Target Cells Not Reportable 10/15/20 05:50 Tear Drop Cells Not Reportable 10/15/20 05:50 Ovalocytes Not Reportable 10/15/20 05:50 Stomatocytes Few 10/14/20 04:00 Helmet Cells Not Reportable 10/15/20 05:50 Burk-[place] Bodies Not Reportable 10/15/20 05:50 [place] Rings Not Reportable 10/15/20 05:50 Antoine Cells Not Reportable 10/15/20 05:50 Bite Cells Not Reportable 10/15/20 05:50 Crenated Cell Not Reportable 10/15/20 05:50 Elliptocytes Not Reportable 10/15/20 05:50 Acanthocytes (Spur) Not Reportable 10/15/20 05:50 Rouleaux Not Reportable 10/15/20 05:50 Hemoglobin C Crystals Not Reportable 10/15/20 05:50 Schistocytes Not Reportable 10/15/20 05:50 Malaria parasites Not Reportable 10/15/20 05:50 Sickle Cell Solubility See scanned result 10/04/20 Unknown Hemoglobin A See scanned result 10/04/20 Unknown Hemoglobin A2 See scanned result 10/04/20 Unknown Hemoglobin A2 Prime See scanned result 10/04/20 Unknown Hemoglobin C See scanned result 10/04/20 Unknown Hemoglobin D See scanned result 10/04/20 Unknown Hemoglobin E See scanned result 10/04/20 Unknown Hgb F Diffential Stain See scanned result 10/04/20 Unknown Hemoglobin F Quant See scanned result 10/04/20 Unknown Hemoglobin G See scanned result 10/04/20 Unknown Hemoglobin S See scanned result 10/04/20 Unknown Hemoglobin O-Foster See scanned result 10/04/20 Unknown Hemoglobin Barts See scanned result 10/04/20 Unknown Hemoglobin Analilia See scanned result 10/04/20 Unknown Variant Hemoglobin See scanned result 10/04/20 Unknown Abnorm Hgb IEF Confirm See scanned result 10/04/20 Unknown Hemoglobin Interpret See scanned result 10/04/20 Unknown Hemoglobinopathy Note See scanned result 10/04/20 Unknown Sharad Bodies Not Reportable 10/15/20 05:50 Hem Pathologist Commnt No 10/15/20 05:50 PT 13.6 Sec. (12.2-14.9) 10/21/20 13:54 INR 1.06 (0.87-1.13) 10/21/20 13:54 APTT 31.6 Sec. (24.2-36.6) 10/03/20 00:40 Fibrinogen 336 mg/dl (211-480) 10/04/20 10:00 D-Dimer > 84034 ng/mlDDU (0-234) H 10/04/20 10:00 ABG pH 7.473 (7.320-7.450) H 10/13/20 07:18 POC ABG pCO2 20.7 mmHg (32.0-48.0) L 10/13/20 07:18 ABG pCO2 25.0 mm Hg 10/10/20 04:42 POC ABG pO2 137.9 mmHg (83-108) H 10/13/20 07:18 ABG pO2 95.2 mm Hg (80.0-90.0) H 10/10/20 04:42 POC ABG HCO3 14.8 10/13/20 07:18 ABG HCO3 20.6 mmol/L (20.0-26.0) 10/10/20 04:42 ABG O2 Saturation 97.9 % (95.0-99.0) 10/10/20 04:42 ABG O2 Content 15.4 (0.0-44) 10/10/20 04:42 POC ABG Base Excess -6.9 10/13/20 07:18 ABG Base Excess -0.8 mmol/L (-2.0-3.0) 10/10/20 04:42 ABG Hemoglobin 11.2 (12.0-17.5) L 10/13/20 07:18 ABG Oxyhemoglobin 98.3 (94-98) H 10/13/20 07:18 ABG Carboxyhemoglobin 1.4 % (0.0-5.0) 10/10/20 04:42 ABG Methemoglobin 0.3 (0.0-1.5) 10/13/20 07:18 ABG Sodium 135.9 mmol/L (136.0-145.0) L 10/13/20 07:18 ABG Potassium 3.7 mmol/L (3.40-4.50) 10/13/20 07:18 ABG Chloride 111.0 mmol/L (98-107) H 10/13/20 07:18 ABG Glucose 109 mg/dL (65-95) H 10/13/20 07:18 VBG pH 6.949 (7.320-7.420) L* 10/02/20 Unknown Oxyhemoglobin 95.9 % (95.0-99.0) 10/10/20 04:42 Carboxyhemoglobin 0.3 (0.5-1.5) L 10/13/20 07:18 FiO2 30.0 10/13/20 07:18 Sodium 135 mmol/L (137-145) L 10/23/20 05:34 Potassium 4.0 mmol/L (3.6-5.0) 10/23/20 05:34 Chloride 100.4 mmol/L (98-107) 10/23/20 05:34 Carbon Dioxide 23 mmol/L (22-30) 10/23/20 05:34 Anion Gap 16 mmol/L 10/23/20 05:34 BUN 17 mg/dL (7-17) 10/23/20 05:34 Creatinine 0.6 mg/dL (0.6-1.2) 10/23/20 05:34 Estimated GFR > 60 ml/min 10/23/20 05:34 BUN/Creatinine Ratio 28 % 10/23/20 05:34 Glucose 105 mg/dL (65-100) H 10/23/20 05:34 POC Glucose 86 mg/dL (70-105) 10/23/20 05:23 Lactic Acid 1.90 mmol/L (0.7-2.0) 10/04/20 22:00 Uric Acid 7.5 mg/dL (3.5-7.6) 10/02/20 13:05 Calcium 9.5 mg/dL (8.4-10.2) 10/23/20 05:34 Ionized Calcium 4.4 mg/dL (4.8-5.6) L 10/07/20 21:00 Phosphorus 4.00 mg/dL (2.5-4.5) 10/20/20 07:59 Magnesium 1.80 mg/dL (1.7-2.3) 10/20/20 07:59 Total Bilirubin 0.90 mg/dL (0.1-1.2) 10/10/20 04:00 AST 122 units/L (5-40) H 10/10/20 04:00 ALT 81 units/L (7-56) H 10/10/20 04:00 Alkaline Phosphatase 94 units/L (35-129) 10/10/20 04:00 Lactate Dehydrogenase 769 units/L (91-180) H 10/02/20 13:05 NT-Pro-B Natriuret Pep 2788 pg/mL (0-450) H 10/04/20 10:00 Total Protein 5.2 g/dL (6.3-8.2) L 10/10/20 04:00 Albumin 2.7 g/dL (3.9-5) L 10/10/20 04:00 Albumin/Globulin Ratio 1.1 % 10/10/20 04:00 Procalcitonin 0.58 ng/mL (<0.15) 10/11/20 15:33 Arterial Blood Glucose 109 mg/dL (65-95) H 10/13/20 07:18 Arterial Blood Ionized Calcium 4.6 mg/dL (4.6-5.3) 10/13/20 07:18 Urine Color Yellow (Yellow) 10/11/20 13:26 Urine Turbidity Clear (Clear) 10/11/20 13:26 Urine pH 7.0 (5.0-7.0) 10/11/20 13:26 Ur Specific [place] 1.014 (1.003-1.030) 10/11/20 13:26 Urine Protein 100 mg/dl mg/dL (Negative) 10/11/20 13:26 Urine Glucose (UA) Neg mg/dL (Negative) 10/11/20 13:26 Urine Ketones Neg mg/dL (Negative) 10/11/20 13:26 Urine Blood Mod (Negative) 10/11/20 13:26 Urine Nitrite Neg (Negative) 10/11/20 13:26 Urine Bilirubin Neg (Negative) 10/11/20 13:26 Urine Urobilinogen < 2.0 mg/dL (<2.0) 10/11/20 13:26 Ur Leukocyte Esterase Sm (Negative) 10/11/20 13:26 Urine WBC (Auto) 24.0 /HPF (0.0-6.0) H 10/11/20 13:26 Urine RBC (Auto) 59.0 /HPF (0.0-6.0) 10/11/20 13:26 Urine Bacteria (Auto) 1+ /HPF (Negative) 10/11/20 13:26 Urine Mucus Few /HPF 10/11/20 13:26 Vancomycin Trough 12.6 ug/mL (5.0-20.0) 10/21/20 13:54 Random Vancomycin 10.7 ug/mL (0-40.0) 10/16/20 13:09 Phenytoin 5.7 ug/mL (10.0-20.0) L 10/13/20 07:00 C. difficile Tox (PCR) Positive (Negative) 10/16/20 10:22 Coronavirus (PCR) Negative (Negative) 10/08/20 14:15 Blood Type O POSITIVE 10/02/20 12:50 Antibody Screen Negative 10/02/20 12:50 Crossmatch See Detail 10/02/20 12:50 - Diagnostic Impressions Diagnostic Impressions: Echocardiogram 10/03/20 13:42 Transthoracic Echocardiogram Indication: S/P Cardiac Arrest R/O Cardiomyopathy BP: 133/71 Conclusions *Global left ventricular systolic function is normal. *The estimated ejection fraction is 60-65%. *There is trace of mitral regurgitation. *The right 0heart chambers are both slightly dilated. *There is mild tricuspid regurgitation. *There is mild-moderate pulmonary hypertension. *The right ventricular systolic pressure is calculated at 44 mmHg. *The study quality is technically difficult. Findings Procedure Info: The study quality is technically difficult. The study is technically limited due to patient body habitus. The study was technically limited due to the patient's inability to lay in the left lateral decubitus position. Left Ventricle: The left ventricular chamber size is normal. There is no left ventricular hypertrophy. Global left ventricular systolic function is normal. The estimated ejection fraction is 60-65%. Left Atrium: The left atrial chamber size is normal. Right Ventricle: The right ventricle is slightly dilated. Right Atrium: The right atrium is mildly dilated. Aortic Valve: The aortic valve leaflets are mildly thickened. There is no evidence of aortic regurgitation. There is no evidence of aortic stenosis. Mitral Valve: The mitral valve leaflets are mildly thickened. There is trace of mitral regurgitation. There is no evidence of mitral stenosis. Tricuspid Valve: There is mild tricuspid regurgitation. The right ventricular systolic pressure is calculated at 44 mmHg. There is evidence of mild pulmonary hypertension. Pulmonic Valve: There is trace pulmonic regurgitation. Pericardium: There is no pericardial effusion. Aorta: There is no dilatation of the ascending aorta. There is no dilatation of the aortic root. Venous: The inferior vena cava is dilated. Measurements Chambers 2D Name Value Normal Range IVSd (2D) 1 cm (0.6 - 1.1) LVPWd (2D) 1.01 cm (0.6 - 1.1) LVIDd (2D) 4.58 cm (3.7 - 5.6) LVIDs (2D) 3.17 cm (2 - 3.8) LV FS (2D) 30.93 % - EF Teichholz (2D) 58.66 % - Ao root diameter (2D) 2.94 cm (2 - 3.7) Volumes/Mass Name Value Normal Range LA ESV SP 4CH (A/L) 72.82 ml - LA ESV SP 2CH (A/L) 66.86 ml - LA ESV BP (A/L) 74.49 ml - LA ESV SP 4CH (MOD) 71.03 ml - LA ESV SP 2CH (MOD) 64.3 ml - LV EDV SP 4CH (MOD) 98.82 ml - LV ESV SP 4CH (MOD) 24.8 ml - EF SP 4CH (MOD) 74.9 % - LV EDV SP 2CH (MOD) 86.1 ml - LV ESV SP 2CH (MOD) 36.93 ml - EF SP 2CH (MOD) 57.11 % - LV EDV BP 94.4 ml - LV ESV BP 32.66 ml - BP EF (MOD) 65.4 % - Diastolic/Systolic Function Name Value Normal Range MV E-wave Vmax 1.04 m/sec - MV deceleration time 160.46 msec - MV A-wave Vmax 0.92 m/sec - MV E:A ratio 1.14 ratio - Aortic Valve Name Value Normal Range AV Vmax 2.12 m/sec - AV VTI 22.37 cm - AV peak gradient 17.95 mmHg - AV mean gradient 7.29 mmHg - LVOT diameter 2.01 cm - LVOT Vmax 1.8 m/sec - LVOT VTI 27.17 cm - LVOT peak gradient 12.91 mmHg - LVOT mean gradient 6.83 mmHg - SV LVOT 86.42 ml - ANITA (continuity Vmax) 2.7 cm2 - ANITA (continuity VTI) 3.86 cm2 - Ascending Ao 3.18 cm - Tricuspid Valve Name Value Normal Range TV E-wave Vmax 0.88 m/sec - TR Vmax 3.01 m/sec - TR peak gradient 36.27 mmHg - RAP 8 mmHg - RVSP 44 mmHg - IVC diameter 2.65 cm (1.2 - 2.3) Pulmonic Valve/Qp:Qs Name Value Normal Range PV Vmax 1.22 m/sec - PV peak gradient 5.91 mmHg - RVOT Vmax 0.87 m/sec - RVOT VTI 13.32 cm - RVOT peak gradient 3 mmHg - PV acceleration time 110.37 msec - [place]lin/IV: Voiding Method Indwelling Catheter IV Catheter Type [Left Forearm Peripheral IV ] IV Catheter Type [Left Wrist] INT / Saline Lock IV Catheter Type [Right Hand] INT / Saline Lock IV Catheter Type [Right INT / Saline Lock Antecubital] IV Catheter Type [Right Upper INT / Saline Lock arm] IV Catheter Type [Left Triple Lumen Cath Internal Jugular] IV Catheter Type [Left Hand] Peripheral IV IV Catheter Type [Left Peripheral IV Antecubital] Active Medications - Current Medications Current Medications: Generic Name Dose Route Start Last Admin Trade Name Freq PRN Reason Stop Dose Admin Acetaminophen 650 mg 10/05/20 16:34 10/16/20 00:13 Acetaminophen 325 Mg/10.15 Ml Oral Liqd Unit Dose FEEDTUBE 650 mg Q6H PRN Administration Non Cardiac Pain or Temp>100.5 Albuterol/Ipratropium 1 ampul 10/10/20 20:00 10/23/20 07:41 Ipratropium/Albuterol Sulfate 3 Ml Ampul.Neb IH 1 ampul Q8HRT ERINN Administration Lipase/Protease/Amylase 1 each 10/05/20 11:09 Lipase 10,500/Protease 25,000/Amylase 43,750 (Units) Dr Barakat FEEDTUBE PRN PRN For Clogged Feeding Tube Enoxaparin Sodium 40 mg 10/22/20 10:00 10/23/20 09:33 Enoxaparin 40 Mg/0.4 Ml Inj SUB-Q 40 mg DAILY ERINN Administration Protocol Famotidine 20 mg 10/07/20 10:00 10/23/20 09:31 Famotidine 20 Mg Tab PO 20 mg BID ERINN Administration Furosemide 40 mg 10/17/20 10:00 10/23/20 09:33 Furosemide 40 Mg Tab PO 40 mg QDAY ERINN Administration Glycopyrrolate 1 mg 10/20/20 10:00 10/23/20 09:32 Glycopyrrolate 1 Mg Tab PO 1 mg BID ERINN Administration Hydralazine HCl 20 mg 10/07/20 11:49 10/17/20 07:20 Hydralazine 20 Mg/1 Ml Inj IV 20 mg Q6H PRN Administration SBP >170 Hydralazine HCl 50 mg 10/17/20 09:00 10/23/20 06:15 Hydralazine 25 Mg Tab PO 50 mg Q8HR ERINN Administration Hydrophilic Ointment 1 applic 10/04/20 06:55 Lip Therapy Vaseline TP Q2HR PRN Dry Lips Dextrose 1,000 mls @ 75 mls/hr 10/13/20 11:00 10/23/20 09:34 D10w IV 75 mls/hr DIRECT ERINN Administration Cefepime HCl 2 gm in 100 mls @ 200 mls/hr 10/22/20 13:00 10/23/20 06:14 Cefepime/Ns 2 Gm/100 Ml IV 200 mls/hr Q8H ERINN Administration Protocol Metronidazole 500 mg in 100 mls @ 100 mls/hr 10/22/20 13:00 10/23/20 06:15 Flagyl 500 Mg/100 Ml IV 100 mls/hr Q8H ERINN Administration Protocol Labetalol HCl 300 mg 10/17/20 09:00 10/23/20 08:32 Labetalol 100 Mg Tab PO 300 mg TID ERINN Administration Multi-Ingred Cream/Lotion/Oil/Oint 1 applic 10/04/20 06:55 Mineral Oil/Petrolatum, White Ophth Oint 3.5 Gm OU Q4HR PRN Dry Eye(s) Simple Syrup 15 ml 10/05/20 11:09 Simple Syrup 15 Ml FEEDTUBE PRN PRN Hypoglycemia Simple Syrup 30 ml 10/05/20 11:09 Simple Syrup 15 Ml FEEDTUBE PRN PRN Hypoglycemia Sodium Bicarbonate 325 mg 10/05/20 11:09 Sodium Bicarbonate 325 Mg Tab FEEDTUBE PRN PRN For Clogged Feeding Tube Sodium Bicarbonate 1,300 mg 10/13/20 14:00 10/23/20 08:31 Sodium Bicarbonate 650 Mg Tab PO 1,300 mg TID ERINN Administration Topiramate 50 mg 10/05/20 11:00 10/23/20 09:31 Topiramate Tab 25 Mg Tab PO 50 mg Q12HR ERINN Administration Nutrition/Malnutrition Assess - Dietary Evaluation Nutrition/Malnutrition Findings: Nutrition Notes Start: 10/04/20 11:13 Freq: Status: Active Protocol: Document 10/21/20 12:46 AB (Rec: 10/21/20 13:46 AB [id number]) Co-Sign 10/21/20 12:46 NHALL Nutrition Notes Initial or Follow up Reassessment Current Diagnosis Acute Kidney Injury, Respiratory Failure Other Pertinent Diagnosis Cardiac arrest, s/p c-sectuion and supracervial hysterectomy Current Diet Vital AF 1.2 at 65ml/hr Labs/Tests Reviewed Pertinent Medications Reviewed Height 5 ft 8 in Weight 118.3 kg [place] Body Weight (kg) 63.63 BMI 39.6 Weight Status Morbidly Obese Subjective/Other Information MD consult for write/manage TF . Pt had PEG placed. Percent of energy/protein needs met: 0%/0% Burn Absent Trauma Absent GI Symptoms None Food Allergy Yes Current % PO Negligible Minimum of two criteria No Fluid Accumulation Mild (non-severe) #1 Nutrition Diagnosis Inadequate oral intake Diagnosis Progress(for reassessment Continues documentation) Is patient on ventilator? Yes Is Patient Ambulatory and/or Out of Bed No REE-([facility]-confined to bed) 2331.456 Kcal/Kg value to use for calculation 15 Approximate Energy Requirements Using 1775 kcal/Kg Calculation Used for Recommendations Kcal/kg Additional Notes Protein needs are up to 159g ( up to 2.5g/kg) Fluid needs are 1ml/kcal Nutrition Intervention Change Diet Order: Continue TF Nutrition Support: Vital AF 1.2 at 65 ml/hr. Flush with 100 ml q4h Kcal 1,872 Protein (gm) 117 Fluid (mL) 1,265 Goal #1 Meet at least 75% of energy and protein needs via TF Anticipated Discharge Needs: Unable to determine at this time Follow-Up By: 10/23/20 Additional Comments F/U for TF start/rate
[2020-10-24] MEDS: DEXTROSE 10% IN WATER 1,000 ML IV SCH ×2 (01:35→13:24)
[2020-10-24] MEDS: metroNIDAZOLE/NS 500 MG/100 ML 500 MG/100 ML BAG IV SCH ×4 (05:42→21:57)
[2020-10-24] MEDS: CEFEPIME/NS 2 GM/100 ML 2 GM/100 ML BAG IV SCH ×3 (05:43→21:56)
[2020-10-24] MEDS: IPRATROPIUM/ALBUTEROL SULFATE 3 ML AMPUL.NEB IH SCH ×2 (07:26→15:30)
[2020-10-24] MEDS: SODIUM BICARBONATE 650 MG TAB PO SCH ×3 (08:19→21:58)
[2020-10-24] MEDS: TOPIRAMATE TAB 25 MG TAB PO SCH ×2 (09:18→21:57)
[2020-10-24] MEDS: FAMOTIDINE 20 MG TAB PO SCH ×2 (09:18→21:57)
[2020-10-24] MEDS: FUROSEMIDE 40 MG TAB PO SCH (09:19)
[2020-10-24] MEDS: ENOXAPARIN 40 MG/0.4 ML INJ SUB-Q SCH (09:19)
[2020-10-24] MEDS: GLYCOPYRROLATE 1 MG TAB PO SCH ×3 (09:19→21:57)
--- NOTE | 2020-10-24 10:25 | Progress Note ---
Assessment and Plan - Patient Problems (1) Acute respiratory failure Current Visit: Yes Status: Acute (2) ADOLPH (acute kidney injury) Current Visit: Yes Status: Acute (3) Acute respiratory failure with hypoxia Current Visit: Yes Status: Acute (4) Cardiac arrest Current Visit: Yes Status: Acute (5) Encephalopathy Current Visit: Yes Status: Acute (6) Hypotension due to blood loss Current Visit: Yes Status: Acute (7) Preeclampsia Current Visit: Yes Status: Acute Subjective Principal diagnosis: Eclampsia/HELLP Syndrome, ADOLPH, DIC; s/p , s/p supracervical hyst Interval history: sp trach on cpap Objective Vital Signs - 12hr 10/23/20 10/23/20 10/24/20 22:26 23:00 00:00 Temperature 99.4 F Pulse Rate 95 H 94 H 86 Pulse Rate [ 95 H Anterior Bilateral Throughout] Pulse Rate [ From Monitor] Respiratory 21 23 18 Rate Respiratory 23 Rate [Anterior Bilateral Throughout] Blood Pressure 122/70 128/69 128/69 O2 Sat by Pulse 99 99 100 Oximetry O2 Sat by Pulse Oximetry [ Assessment] 10/24/20 10/24/20 10/24/20 01:00 02:00 03:00 Temperature Pulse Rate 101 H 91 H 104 H Pulse Rate [ Anterior Bilateral Throughout] Pulse Rate [ From Monitor] Respiratory 26 H 17 30 H Rate Respiratory Rate [Anterior Bilateral Throughout] Blood Pressure 148/85 125/78 124/85 O2 Sat by Pulse 99 98 99 Oximetry O2 Sat by Pulse Oximetry [ Assessment] 10/24/20 10/24/20 10/24/20 04:00 04:44 05:00 Temperature 99 F Pulse Rate 86 107 H 82 Pulse Rate [ Anterior Bilateral Throughout] Pulse Rate [ From Monitor] Respiratory 18 27 H 18 Rate Respiratory Rate [Anterior Bilateral Throughout] Blood Pressure 132/79 132/79 134/73 O2 Sat by Pulse 99 99 100 Oximetry O2 Sat by Pulse Oximetry [ Assessment] 10/24/20 10/24/20 10/24/20 06:00 07:00 07:26 Temperature Pulse Rate 83 78 107 H Pulse Rate [ 105 H Anterior Bilateral Throughout] Pulse Rate [ From Monitor] Respiratory 17 17 29 H Rate Respiratory 24 Rate [Anterior Bilateral Throughout] Blood Pressure 128/66 122/64 122/64 O2 Sat by Pulse 100 100 99 Oximetry O2 Sat by Pulse 100 Oximetry [ Assessment] 10/24/20 10/24/20 10/24/20 08:00 09:00 09:18 Temperature Pulse Rate 111 H 94 H 108 H Pulse Rate [ Anterior Bilateral Throughout] Pulse Rate [ 90 From Monitor] Respiratory 21 19 Rate Respiratory Rate [Anterior Bilateral Throughout] Blood Pressure 132/71 121/61 121/61 O2 Sat by Pulse 99 100 Oximetry O2 Sat by Pulse Oximetry [ Assessment] Constitutional: comatose, other (critically ill on ventilator) Eyes: non-icteric ENT: oropharynx moist, other (orally intubated and not sedated) Neck: other (large in cirumference) Effort: normal Ascultation: Bilateral: clear, diminished breath sounds Percussion: Bilateral: not dull Cardiovascular: regular rate and rhythm, other (no mrg) Gastrointestinal: normoactive bowel sounds, soft, other (post surgical changes with drain on the left side) Extremities: no cyanosis, pink and warm, anasarca Neurologic: other (unresponsive, not following commands, not tracking) Psychiatric: other (unable to assess) CBC and BMP: 10/23/20 05:34 10/23/20 05:34 ABG, PT/INR, D-dimer: ABG ABG pH 7.473 (7.320-7.450) H 10/13/20 07:18 POC ABG pCO2 20.7 mmHg (32.0-48.0) L 10/13/20 07:18 ABG pCO2 25.0 mm Hg 10/10/20 04:42 POC ABG pO2 137.9 mmHg (83-108) H 10/13/20 07:18 ABG pO2 95.2 mm Hg (80.0-90.0) H 10/10/20 04:42 POC ABG HCO3 14.8 10/13/20 07:18 ABG O2 Saturation 97.9 % (95.0-99.0) 10/10/20 04:42 PT/INR, D-dimer PT 13.6 Sec. (12.2-14.9) 10/21/20 13:54 INR 1.06 (0.87-1.13) 10/21/20 13:54 D-Dimer > 04782 ng/mlDDU (0-234) H 10/04/20 10:00 Abnormal lab findings: Abnormal Labs 10/02/20 10/02/20 10/02/20 12:03 12:18 12:18 WBC 14.9 H RBC Hgb 9.1 L Hct MCV MCH 22 L MCHC 28 L RDW 17.6 H Plt Count 102 L Lymph % (Auto) [place] % (Auto) Lymph # (Auto) [place] # (Auto) Baso # (Auto) Seg Neutrophils % Seg Neuts % (Manual) 36.0 L Lymphocytes % (Manual) 49.0 H Monocytes % (Manual) Nucleated RBC % 6.0 H Seg Neutrophils # Seg Neutrophils # Man Lymphocytes # (Manual) 7.3 H Monocytes # (Manual) PT INR APTT Fibrinogen D-Dimer ABG pH POC ABG pCO2 POC ABG pO2 ABG pO2 ABG HCO3 ABG Base Excess ABG Hemoglobin ABG Oxyhemoglobin ABG Sodium ABG Potassium ABG Chloride ABG Glucose VBG pH Oxyhemoglobin Carboxyhemoglobin Sodium 134 L Potassium Chloride Carbon Dioxide 12 L BUN 6 L Creatinine Glucose 390 H POC Glucose 451 H Lactic Acid Calcium Ionized Calcium Magnesium AST 135 H ALT 85 H Alkaline Phosphatase 172 H Lactate Dehydrogenase 641 H NT-Pro-B Natriuret Pep Total Protein 5.4 L Albumin 2.3 L Arterial Blood Glucose Arterial Blood Ionized Calcium Urine WBC (Auto) Vancomycin Trough Phenytoin Crossmatch 10/02/20 10/02/20 10/02/20 12:50 13:05 13:05 WBC 38.6 H RBC Hgb 8.9 L Hct 29.0 L MCV 73 L MCH 22 L MCHC RDW 17.2 H Plt Count Lymph % (Auto) [place] % (Auto) Lymph # (Auto) [place] # (Auto) Baso # (Auto) Seg Neutrophils % Seg Neuts % (Manual) Lymphocytes % (Manual) Monocytes % (Manual) Nucleated RBC % 2.0 H Seg Neutrophils # Seg Neutrophils # Man 20.1 H Lymphocytes # (Manual) 10.4 H Monocytes # (Manual) 2.3 H PT INR APTT Fibrinogen D-Dimer ABG pH POC ABG pCO2 POC ABG pO2 ABG pO2 ABG HCO3 ABG Base Excess ABG Hemoglobin ABG Oxyhemoglobin ABG Sodium ABG Potassium ABG Chloride ABG Glucose VBG pH Oxyhemoglobin Carboxyhemoglobin Sodium Potassium Chloride Carbon Dioxide BUN Creatinine Glucose POC Glucose Lactic Acid Calcium Ionized Calcium Magnesium AST 184 H ALT 113 H Alkaline Phosphatase Lactate Dehydrogenase 769 H NT-Pro-B Natriuret Pep Total Protein Albumin Arterial Blood Glucose Arterial Blood Ionized Calcium Urine WBC (Auto) Vancomycin Trough Phenytoin Crossmatch See Detail 10/02/20 10/02/20 10/02/20 16:25 16:35 16:35 WBC RBC Hgb Hct MCV MCH MCHC RDW Plt Count Lymph % (Auto) [place] % (Auto) Lymph # (Auto) [place] # (Auto) Baso # (Auto) Seg Neutrophils % Seg Neuts % (Manual) Lymphocytes % (Manual) Monocytes % (Manual) Nucleated RBC % Seg Neutrophils # Seg Neutrophils # Man Lymphocytes # (Manual) Monocytes # (Manual) PT INR APTT Fibrinogen D-Dimer ABG pH 7.031 L* POC ABG pCO2 POC ABG pO2 ABG pO2 116.8 H ABG HCO3 12.7 L ABG Base Excess -16.9 L ABG Hemoglobin 7.8 L ABG Oxyhemoglobin ABG Sodium ABG Potassium ABG Chloride ABG Glucose VBG pH Oxyhemoglobin 94.9 L Carboxyhemoglobin Sodium Potassium Chloride Carbon Dioxide BUN Creatinine Glucose 403 H POC Glucose Lactic Acid 11.40 H* Calcium 6.3 L D Ionized Calcium Magnesium AST 70 H ALT Alkaline Phosphatase Lactate Dehydrogenase NT-Pro-B Natriuret Pep Total Protein 1.9 L D Albumin 1.2 L Arterial Blood Glucose Arterial Blood Ionized Calcium Urine WBC (Auto) Vancomycin Trough Phenytoin Crossmatch 10/02/20 10/02/20 10/02/20 18:18 18:18 22:30 WBC 11.5 H RBC 2.06 L Hgb 5.5 L* D Hct 17.3 L* D MCV MCH 27 L MCHC RDW 19.5 H Plt Count 60 L Lymph % (Auto) [place] % (Auto) Lymph # (Auto) [place] # (Auto) Baso # (Auto) Seg Neutrophils % Seg Neuts % (Manual) Lymphocytes % (Manual) 8.0 L Monocytes % (Manual) 8.0 H Nucleated RBC % 8.0 H Seg Neutrophils # Seg Neutrophils # Man Lymphocytes # (Manual) 0.9 L Monocytes # (Manual) 0.9 H PT 37.1 H INR 3.71 H APTT 135.8 H* Fibrinogen D-Dimer ABG pH 7.067 L* POC ABG pCO2 POC ABG pO2 ABG pO2 183.0 H ABG HCO3 14.1 L ABG Base Excess -15.1 L ABG Hemoglobin 7.7 L ABG Oxyhemoglobin ABG Sodium ABG Potassium ABG Chloride ABG Glucose VBG pH Oxyhemoglobin Carboxyhemoglobin Sodium Potassium Chloride Carbon Dioxide BUN Creatinine Glucose POC Glucose Lactic Acid Calcium Ionized Calcium Magnesium AST ALT Alkaline Phosphatase Lactate Dehydrogenase NT-Pro-B Natriuret Pep Total Protein Albumin Arterial Blood Glucose Arterial Blood Ionized Calcium Urine WBC (Auto) Vancomycin Trough Phenytoin Crossmatch 10/02/20 10/02/20 10/03/20 Unknown Unknown 00:01 WBC RBC Hgb Hct MCV MCH MCHC RDW Plt Count Lymph % (Auto) [place] % (Auto) Lymph # (Auto) [place] # (Auto) Baso # (Auto) Seg Neutrophils % Seg Neuts % (Manual) Lymphocytes % (Manual) Monocytes % (Manual) Nucleated RBC % Seg Neutrophils # Seg Neutrophils # Man Lymphocytes # (Manual) Monocytes # (Manual) PT 61.1 H INR 6.92 H* APTT 158.7 H* Fibrinogen < 60 L* D-Dimer > 84744 H ABG pH POC ABG pCO2 POC ABG pO2 ABG pO2 ABG HCO3 ABG Base Excess ABG Hemoglobin ABG Oxyhemoglobin ABG Sodium ABG Potassium ABG Chloride ABG Glucose VBG pH 6.949 L* Oxyhemoglobin Carboxyhemoglobin Sodium Potassium Chloride Carbon Dioxide BUN Creatinine Glucose POC Glucose 196 H Lactic Acid Calcium Ionized Calcium Magnesium AST ALT Alkaline Phosphatase Lactate Dehydrogenase NT-Pro-B Natriuret Pep Total Protein Albumin Arterial Blood Glucose Arterial Blood Ionized Calcium Urine WBC (Auto) Vancomycin Trough Phenytoin Crossmatch 10/03/20 10/03/20 10/03/20 00:40 00:40 00:40 WBC RBC Hgb Hct MCV MCH MCHC RDW Plt Count Lymph % (Auto) [place] % (Auto) Lymph # (Auto) [place] # (Auto) Baso # (Auto) Seg Neutrophils % Seg Neuts % (Manual) Lymphocytes % (Manual) Monocytes % (Manual) Nucleated RBC % Seg Neutrophils # Seg Neutrophils # Man Lymphocytes # (Manual) Monocytes # (Manual) PT 15.1 H INR 1.21 H APTT Fibrinogen D-Dimer ABG pH POC ABG pCO2 POC ABG pO2 ABG pO2 ABG HCO3 ABG Base Excess ABG Hemoglobin ABG Oxyhemoglobin ABG Sodium ABG Potassium ABG Chloride ABG Glucose VBG pH Oxyhemoglobin Carboxyhemoglobin Sodium 136 L Potassium Chloride Carbon Dioxide BUN Creatinine 1.6 H D Glucose 106 H POC Glucose Lactic Acid 5.60 H* Calcium 6.5 L Ionized Calcium Magnesium AST 232 H ALT 104 H Alkaline Phosphatase Lactate Dehydrogenase NT-Pro-B Natriuret Pep Total Protein 3.9 L D Albumin 2.4 L Arterial Blood Glucose Arterial Blood Ionized Calcium Urine WBC (Auto) Vancomycin Trough Phenytoin Crossmatch 10/03/20 10/03/20 10/03/20 02:08 02:08 02:08 WBC 17.6 H RBC 3.27 L Hgb 9.9 L D Hct 29.9 L D MCV MCH MCHC RDW 16.5 H Plt Count 75 L Lymph % (Auto) [place] % (Auto) Lymph # (Auto) [place] # (Auto) Baso # (Auto) Seg Neutrophils % Seg Neuts % (Manual) 76.0 H Lymphocytes % (Manual) Monocytes % (Manual) Nucleated RBC % 8.0 H Seg Neutrophils # Seg Neutrophils # Man 13.4 H Lymphocytes # (Manual) Monocytes # (Manual) PT INR APTT Fibrinogen D-Dimer ABG pH POC ABG pCO2 POC ABG pO2 ABG pO2 ABG HCO3 ABG Base Excess ABG Hemoglobin ABG Oxyhemoglobin ABG Sodium ABG Potassium ABG Chloride ABG Glucose VBG pH Oxyhemoglobin Carboxyhemoglobin Sodium Potassium Chloride Carbon Dioxide 19 L BUN Creatinine 1.4 H Glucose 306 H POC Glucose Lactic Acid 10.50 H* Calcium 6.4 L Ionized Calcium Magnesium AST ALT Alkaline Phosphatase Lactate Dehydrogenase NT-Pro-B Natriuret Pep Total Protein Albumin Arterial Blood Glucose Arterial Blood Ionized Calcium Urine WBC (Auto) Vancomycin Trough Phenytoin Crossmatch 10/03/20 10/03/20 10/03/20 02:42 03:59 05:31 WBC RBC Hgb Hct MCV MCH MCHC RDW Plt Count Lymph % (Auto) [place] % (Auto) Lymph # (Auto) [place] # (Auto) Baso # (Auto) Seg Neutrophils % Seg Neuts % (Manual) Lymphocytes % (Manual) Monocytes % (Manual) Nucleated RBC % Seg Neutrophils # Seg Neutrophils # Man Lymphocytes # (Manual) Monocytes # (Manual) PT INR APTT Fibrinogen D-Dimer ABG pH 7.144 L POC ABG pCO2 54.4 H POC ABG pO2 ABG pO2 ABG HCO3 ABG Base Excess ABG Hemoglobin 10.0 L ABG Oxyhemoglobin ABG Sodium ABG Potassium ABG Chloride 108.0 H ABG Glucose 306 H VBG pH Oxyhemoglobin Carboxyhemoglobin Sodium Potassium Chloride Carbon Dioxide BUN Creatinine Glucose POC Glucose 209 H Lactic Acid 9.20 H* Calcium Ionized Calcium Magnesium AST ALT Alkaline Phosphatase Lactate Dehydrogenase NT-Pro-B Natriuret Pep Total Protein Albumin Arterial Blood Glucose 306 H Arterial Blood Ionized Calcium 3.7 L Urine WBC (Auto) Vancomycin Trough Phenytoin Crossmatch 10/03/20 10/03/20 10/03/20 09:00 09:00 09:00 WBC 27.4 H RBC 2.84 L Hgb 8.5 L Hct 25.1 L MCV MCH MCHC RDW 16.1 H Plt Count 72 L Lymph % (Auto) [place] % (Auto) Lymph # (Auto) [place] # (Auto) Baso # (Auto) Seg Neutrophils % Seg Neuts % (Manual) Lymphocytes % (Manual) 11.0 L Monocytes % (Manual) Nucleated RBC % 3.0 H Seg Neutrophils # Seg Neutrophils # Man 18.4 H Lymphocytes # (Manual) Monocytes # (Manual) 1.9 H PT INR APTT Fibrinogen D-Dimer ABG pH POC ABG pCO2 POC ABG pO2 ABG pO2 ABG HCO3 ABG Base Excess ABG Hemoglobin ABG Oxyhemoglobin ABG Sodium ABG Potassium ABG Chloride ABG Glucose VBG pH Oxyhemoglobin Carboxyhemoglobin Sodium Potassium Chloride Carbon Dioxide BUN Creatinine 1.7 H Glucose 216 H POC Glucose Lactic Acid 9.20 H* Calcium 6.3 L Ionized Calcium Magnesium AST 331 H ALT 171 H Alkaline Phosphatase Lactate Dehydrogenase NT-Pro-B Natriuret Pep Total Protein 3.7 L Albumin 1.9 L Arterial Blood Glucose Arterial Blood Ionized Calcium Urine WBC (Auto) Vancomycin Trough Phenytoin Crossmatch 10/03/20 10/03/20 10/03/20 11:20 11:46 11:50 WBC 28.7 H RBC 2.67 L Hgb 8.0 L Hct 23.7 L MCV MCH MCHC RDW 16.6 H Plt Count 76 L Lymph % (Auto) [place] % (Auto) Lymph # (Auto) [place] # (Auto) Baso # (Auto) Seg Neutrophils % Seg Neuts % (Manual) Lymphocytes % (Manual) Monocytes % (Manual) Nucleated RBC % Seg Neutrophils # Seg Neutrophils # Man Lymphocytes # (Manual) Monocytes # (Manual) PT INR APTT Fibrinogen D-Dimer ABG pH POC ABG pCO2 POC ABG pO2 ABG pO2 ABG HCO3 ABG Base Excess ABG Hemoglobin ABG Oxyhemoglobin ABG Sodium ABG Potassium ABG Chloride ABG Glucose VBG pH Oxyhemoglobin Carboxyhemoglobin Sodium Potassium Chloride Carbon Dioxide BUN Creatinine Glucose POC Glucose 125 H Lactic Acid 8.00 H* Calcium Ionized Calcium Magnesium AST ALT Alkaline Phosphatase Lactate Dehydrogenase NT-Pro-B Natriuret Pep Total Protein Albumin Arterial Blood Glucose Arterial Blood Ionized Calcium Urine WBC (Auto) Vancomycin Trough Phenytoin Crossmatch 10/03/20 10/04/20 10/04/20 11:50 00:40 00:40 WBC RBC Hgb 6.8 L Hct 19.4 L* MCV MCH MCHC RDW Plt Count 49 L Lymph % (Auto) [place] % (Auto) Lymph # (Auto) [place] # (Auto) Baso # (Auto) Seg Neutrophils % Seg Neuts % (Manual) Lymphocytes % (Manual) Monocytes % (Manual) Nucleated RBC % Seg Neutrophils # Seg Neutrophils # Man Lymphocytes # (Manual) Monocytes # (Manual) PT INR APTT Fibrinogen D-Dimer ABG pH 7.244 L POC ABG pCO2 POC ABG pO2 ABG pO2 ABG HCO3 ABG Base Excess -4.5 L ABG Hemoglobin 7.3 L ABG Oxyhemoglobin ABG Sodium ABG Potassium ABG Chloride ABG Glucose VBG pH Oxyhemoglobin Carboxyhemoglobin Sodium Potassium Chloride Carbon Dioxide BUN Creatinine Glucose POC Glucose Lactic Acid Calcium Ionized Calcium Magnesium AST ALT Alkaline Phosphatase Lactate Dehydrogenase NT-Pro-B Natriuret Pep Total Protein Albumin Arterial Blood Glucose Arterial Blood Ionized Calcium Urine WBC (Auto) Vancomycin Trough Phenytoin Crossmatch 10/04/20 10/04/20 10/04/20 03:53 10:00 10:00 WBC 14.6 H RBC 2.57 L Hgb 7.6 L Hct 22.5 L MCV MCH MCHC RDW 15.8 H Plt Count 38 L Lymph % (Auto) 7.7 L [place] % (Auto) Lymph # (Auto) 1.1 L [place] # (Auto) 0.9 H Baso # (Auto) Seg Neutrophils % 85.6 H Seg Neuts % (Manual) Lymphocytes % (Manual) Monocytes % (Manual) Nucleated RBC % Seg Neutrophils # 12.5 H Seg Neutrophils # Man Lymphocytes # (Manual) Monocytes # (Manual) PT INR APTT Fibrinogen D-Dimer ABG pH POC ABG pCO2 POC ABG pO2 110.6 H ABG pO2 ABG HCO3 ABG Base Excess ABG Hemoglobin 6.7 L ABG Oxyhemoglobin ABG Sodium 132.0 L ABG Potassium ABG Chloride ABG Glucose 111 H VBG pH Oxyhemoglobin Carboxyhemoglobin Sodium 134 L D Potassium Chloride 97.6 L Carbon Dioxide BUN Creatinine 1.7 H Glucose POC Glucose Lactic Acid Calcium 6.3 L Ionized Calcium Magnesium AST 203 H ALT 81 H Alkaline Phosphatase Lactate Dehydrogenase NT-Pro-B Natriuret Pep Total Protein 3.9 L Albumin 2.3 L Arterial Blood Glucose 111 H Arterial Blood Ionized Calcium 3.5 L Urine WBC (Auto) Vancomycin Trough Phenytoin Crossmatch 10/04/20 10/04/20 10/04/20 10:00 10:00 10:14 WBC RBC Hgb Hct MCV MCH MCHC RDW Plt Count Lymph % (Auto) [place] % (Auto) Lymph # (Auto) [place] # (Auto) Baso # (Auto) Seg Neutrophils % Seg Neuts % (Manual) Lymphocytes % (Manual) Monocytes % (Manual) Nucleated RBC % Seg Neutrophils # Seg Neutrophils # Man Lymphocytes # (Manual) Monocytes # (Manual) PT INR APTT Fibrinogen D-Dimer > 17766 H ABG pH POC ABG pCO2 POC ABG pO2 ABG pO2 ABG HCO3 ABG Base Excess ABG Hemoglobin ABG Oxyhemoglobin ABG Sodium ABG Potassium ABG Chloride ABG Glucose VBG pH Oxyhemoglobin Carboxyhemoglobin Sodium Potassium Chloride Carbon Dioxide BUN Creatinine Glucose POC Glucose Lactic Acid 3.90 H* Calcium Ionized Calcium Magnesium AST ALT Alkaline Phosphatase Lactate Dehydrogenase NT-Pro-B Natriuret Pep 2788 H Total Protein Albumin Arterial Blood Glucose Arterial Blood Ionized Calcium Urine WBC (Auto) Vancomycin Trough Phenytoin Crossmatch 10/04/20 10/04/20 10/04/20 14:00 14:00 18:00 WBC 15.7 H RBC 3.17 L Hgb 9.3 L 9.6 L Hct 27.2 L 28.0 L MCV MCH MCHC RDW 16.9 H Plt Count 41 L Lymph % (Auto) 8.6 L [place] % (Auto) Lymph # (Auto) [place] # (Auto) 0.9 H Baso # (Auto) Seg Neutrophils % 85.4 H Seg Neuts % (Manual) Lymphocytes % (Manual) Monocytes % (Manual) Nucleated RBC % Seg Neutrophils # 13.4 H Seg Neutrophils # Man Lymphocytes # (Manual) Monocytes # (Manual) PT INR APTT Fibrinogen D-Dimer ABG pH POC ABG pCO2 POC ABG pO2 ABG pO2 ABG HCO3 ABG Base Excess ABG Hemoglobin ABG Oxyhemoglobin ABG Sodium ABG Potassium ABG Chloride ABG Glucose VBG pH Oxyhemoglobin Carboxyhemoglobin Sodium 133 L Potassium Chloride 96.4 L Carbon Dioxide BUN 18 H Creatinine 1.7 H Glucose POC Glucose Lactic Acid Calcium 6.3 L Ionized Calcium Magnesium AST ALT Alkaline Phosphatase Lactate Dehydrogenase NT-Pro-B Natriuret Pep Total Protein Albumin Arterial Blood Glucose Arterial Blood Ionized Calcium Urine WBC (Auto) Vancomycin Trough Phenytoin Crossmatch 10/04/20 10/04/20 10/05/20 18:00 22:00 05:00 WBC 17.6 H RBC 3.34 L Hgb 9.9 L Hct 29.4 L MCV MCH MCHC RDW 17.1 H Plt Count 56 L Lymph % (Auto) 8.5 L [place] % (Auto) Lymph # (Auto) [place] # (Auto) 1.0 H Baso # (Auto) Seg Neutrophils % 85.1 H Seg Neuts % (Manual) Lymphocytes % (Manual) Monocytes % (Manual) Nucleated RBC % Seg Neutrophils # 15.0 H Seg Neutrophils # Man Lymphocytes # (Manual) Monocytes # (Manual) PT INR APTT Fibrinogen D-Dimer ABG pH POC ABG pCO2 POC ABG pO2 ABG pO2 ABG HCO3 ABG Base Excess ABG Hemoglobin ABG Oxyhemoglobin ABG Sodium ABG Potassium ABG Chloride ABG Glucose VBG pH Oxyhemoglobin Carboxyhemoglobin Sodium 136 L Potassium Chloride Carbon Dioxide BUN 18 H Creatinine 1.7 H Glucose POC Glucose Lactic Acid 2.30 H* Calcium 6.6 L Ionized Calcium Magnesium AST ALT Alkaline Phosphatase Lactate Dehydrogenase NT-Pro-B Natriuret Pep Total Protein Albumin Arterial Blood Glucose Arterial Blood Ionized Calcium Urine WBC (Auto) Vancomycin Trough Phenytoin Crossmatch 10/05/20 10/05/20 10/05/20 05:00 05:00 05:03 WBC RBC Hgb Hct MCV MCH MCHC RDW Plt Count Lymph % (Auto) [place] % (Auto) Lymph # (Auto) [place] # (Auto) Baso # (Auto) Seg Neutrophils % Seg Neuts % (Manual) Lymphocytes % (Manual) Monocytes % (Manual) Nucleated RBC % Seg Neutrophils # Seg Neutrophils # Man Lymphocytes # (Manual) Monocytes # (Manual) PT INR APTT Fibrinogen D-Dimer ABG pH 7.458 H POC ABG pCO2 POC ABG pO2 ABG pO2 74.3 L ABG HCO3 27.5 H ABG Base Excess 3.4 H ABG Hemoglobin 10.0 L ABG Oxyhemoglobin ABG Sodium ABG Potassium ABG Chloride ABG Glucose VBG pH Oxyhemoglobin 94.9 L Carboxyhemoglobin Sodium Potassium Chloride Carbon Dioxide BUN 19 H Creatinine 1.8 H Glucose POC Glucose Lactic Acid Calcium 6.8 L Ionized Calcium 3.9 L Magnesium AST 225 H ALT 85 H Alkaline Phosphatase Lactate Dehydrogenase NT-Pro-B Natriuret Pep Total Protein 4.5 L Albumin 2.7 L Arterial Blood Glucose Arterial Blood Ionized Calcium Urine WBC (Auto) Vancomycin Trough Phenytoin Crossmatch 10/05/20 10/05/20 10/05/20 10:10 15:00 19:40 WBC RBC Hgb Hct MCV MCH MCHC RDW Plt Count Lymph % (Auto) [place] % (Auto) Lymph # (Auto) [place] # (Auto) Baso # (Auto) Seg Neutrophils % Seg Neuts % (Manual) Lymphocytes % (Manual) Monocytes % (Manual) Nucleated RBC % Seg Neutrophils # Seg Neutrophils # Man Lymphocytes # (Manual) Monocytes # (Manual) PT INR APTT Fibrinogen D-Dimer ABG pH POC ABG pCO2 POC ABG pO2 ABG pO2 ABG HCO3 ABG Base Excess ABG Hemoglobin ABG Oxyhemoglobin ABG Sodium ABG Potassium ABG Chloride ABG Glucose VBG pH Oxyhemoglobin Carboxyhemoglobin Sodium Potassium 3.5 L Chloride Carbon Dioxide 31 H 32 H BUN 19 H 19 H Creatinine 1.8 H 1.8 H Glucose POC Glucose Lactic Acid Calcium 7.0 L 7.2 L Ionized Calcium Magnesium 2.90 H AST ALT Alkaline Phosphatase Lactate Dehydrogenase NT-Pro-B Natriuret Pep Total Protein Albumin Arterial Blood Glucose Arterial Blood Ionized Calcium Urine WBC (Auto) Vancomycin Trough Phenytoin Crossmatch 10/06/20 10/06/20 10/06/20 01:05 03:12 04:00 WBC 17.1 H RBC 3.47 L Hgb Hct MCV MCH MCHC RDW 17.4 H Plt Count 82 L Lymph % (Auto) 8.3 L [place] % (Auto) Lymph # (Auto) [place] # (Auto) 1.1 H Baso # (Auto) Seg Neutrophils % 83.8 H Seg Neuts % (Manual) Lymphocytes % (Manual) Monocytes % (Manual) Nucleated RBC % Seg Neutrophils # 14.3 H Seg Neutrophils # Man Lymphocytes # (Manual) Monocytes # (Manual) PT INR APTT Fibrinogen D-Dimer ABG pH 7.474 H POC ABG pCO2 POC ABG pO2 129.5 H ABG pO2 ABG HCO3 ABG Base Excess ABG Hemoglobin 11.4 L ABG Oxyhemoglobin ABG Sodium 131.8 L ABG Potassium ABG Chloride ABG Glucose 103 H VBG pH Oxyhemoglobin Carboxyhemoglobin 0.3 L Sodium Potassium Chloride Carbon Dioxide BUN Creatinine Glucose POC Glucose Lactic Acid Calcium Ionized Calcium Magnesium 3.70 H AST ALT Alkaline Phosphatase Lactate Dehydrogenase NT-Pro-B Natriuret Pep Total Protein Albumin Arterial Blood Glucose 103 H Arterial Blood Ionized Calcium 4.2 L Urine WBC (Auto) Vancomycin Trough Phenytoin Crossmatch 10/06/20 10/06/20 10/06/20 04:00 05:31 08:12 WBC RBC Hgb Hct MCV MCH MCHC RDW Plt Count Lymph % (Auto) [place] % (Auto) Lymph # (Auto) [place] # (Auto) Baso # (Auto) Seg Neutrophils % Seg Neuts % (Manual) Lymphocytes % (Manual) Monocytes % (Manual) Nucleated RBC % Seg Neutrophils # Seg Neutrophils # Man Lymphocytes # (Manual) Monocytes # (Manual) PT INR APTT Fibrinogen D-Dimer ABG pH POC ABG pCO2 POC ABG pO2 ABG pO2 ABG HCO3 ABG Base Excess ABG Hemoglobin ABG Oxyhemoglobin ABG Sodium ABG Potassium ABG Chloride ABG Glucose VBG pH Oxyhemoglobin Carboxyhemoglobin Sodium Potassium 3.5 L Chloride Carbon Dioxide BUN 19 H Creatinine 1.8 H Glucose 102 H POC Glucose 116 H Lactic Acid Calcium 7.2 L Ionized Calcium Magnesium 5.40 H AST 307 H ALT 137 H Alkaline Phosphatase Lactate Dehydrogenase NT-Pro-B Natriuret Pep Total Protein 4.5 L Albumin 2.6 L Arterial Blood Glucose Arterial Blood Ionized Calcium Urine WBC (Auto) Vancomycin Trough Phenytoin Crossmatch 10/06/20 10/06/20 10/06/20 11:00 11:50 20:13 WBC RBC Hgb Hct MCV MCH MCHC RDW Plt Count Lymph % (Auto) [place] % (Auto) Lymph # (Auto) [place] # (Auto) Baso # (Auto) Seg Neutrophils % Seg Neuts % (Manual) Lymphocytes % (Manual) Monocytes % (Manual) Nucleated RBC % Seg Neutrophils # Seg Neutrophils # Man Lymphocytes # (Manual) Monocytes # (Manual) PT INR APTT Fibrinogen D-Dimer ABG pH POC ABG pCO2 POC ABG pO2 ABG pO2 ABG HCO3 ABG Base Excess ABG Hemoglobin ABG Oxyhemoglobin ABG Sodium ABG Potassium ABG Chloride ABG Glucose VBG pH Oxyhemoglobin Carboxyhemoglobin Sodium Potassium Chloride Carbon Dioxide BUN Creatinine Glucose POC Glucose 106 H Lactic Acid Calcium Ionized Calcium Magnesium 6.50 H 6.20 H AST ALT Alkaline Phosphatase Lactate Dehydrogenase NT-Pro-B Natriuret Pep Total Protein Albumin Arterial Blood Glucose Arterial Blood Ionized Calcium Urine WBC (Auto) Vancomycin Trough Phenytoin Crossmatch 10/06/20 10/06/20 10/06/20 20:17 22:29 23:57 WBC RBC Hgb Hct MCV MCH MCHC RDW Plt Count Lymph % (Auto) [place] % (Auto) Lymph # (Auto) [place] # (Auto) Baso # (Auto) Seg Neutrophils % Seg Neuts % (Manual) Lymphocytes % (Manual) Monocytes % (Manual) Nucleated RBC % Seg Neutrophils # Seg Neutrophils # Man Lymphocytes # (Manual) Monocytes # (Manual) PT INR APTT Fibrinogen D-Dimer ABG pH POC ABG pCO2 POC ABG pO2 ABG pO2 ABG HCO3 ABG Base Excess ABG Hemoglobin ABG Oxyhemoglobin ABG Sodium ABG Potassium ABG Chloride ABG Glucose VBG pH Oxyhemoglobin Carboxyhemoglobin Sodium Potassium Chloride Carbon Dioxide BUN Creatinine Glucose POC Glucose 112 H 126 H 133 H Lactic Acid Calcium Ionized Calcium Magnesium AST ALT Alkaline Phosphatase Lactate Dehydrogenase NT-Pro-B Natriuret Pep Total Protein Albumin Arterial Blood Glucose Arterial Blood Ionized Calcium Urine WBC (Auto) Vancomycin Trough Phenytoin Crossmatch 10/07/20 10/07/20 10/07/20 00:35 02:22 03:16 WBC RBC Hgb Hct MCV MCH MCHC RDW Plt Count Lymph % (Auto) [place] % (Auto) Lymph # (Auto) [place] # (Auto) Baso # (Auto) Seg Neutrophils % Seg Neuts % (Manual) Lymphocytes % (Manual) Monocytes % (Manual) Nucleated RBC % Seg Neutrophils # Seg Neutrophils # Man Lymphocytes # (Manual) Monocytes # (Manual) PT INR APTT Fibrinogen D-Dimer ABG pH POC ABG pCO2 POC ABG pO2 ABG pO2 ABG HCO3 ABG Base Excess ABG Hemoglobin 11.6 L ABG Oxyhemoglobin ABG Sodium ABG Potassium ABG Chloride ABG Glucose 156 H VBG pH Oxyhemoglobin Carboxyhemoglobin 0.3 L Sodium Potassium Chloride Carbon Dioxide BUN Creatinine Glucose POC Glucose 124 H Lactic Acid Calcium Ionized Calcium Magnesium 5.90 H AST ALT Alkaline Phosphatase Lactate Dehydrogenase NT-Pro-B Natriuret Pep Total Protein Albumin Arterial Blood Glucose 156 H Arterial Blood Ionized Calcium 4.2 L Urine WBC (Auto) Vancomycin Trough Phenytoin Crossmatch 10/07/20 10/07/20 10/07/20 04:06 05:45 07:05 WBC 19.2 H RBC 3.57 L Hgb Hct MCV MCH MCHC 35 H RDW 17.1 H Plt Count 129 L Lymph % (Auto) [place] % (Auto) Lymph # (Auto) [place] # (Auto) Baso # (Auto) Seg Neutrophils % Seg Neuts % (Manual) 94.0 H Lymphocytes % (Manual) 6.0 L Monocytes % (Manual) Nucleated RBC % Seg Neutrophils # Seg Neutrophils # Man 18.0 H Lymphocytes # (Manual) Monocytes # (Manual) PT INR APTT Fibrinogen D-Dimer ABG pH POC ABG pCO2 POC ABG pO2 ABG pO2 ABG HCO3 ABG Base Excess ABG Hemoglobin ABG Oxyhemoglobin ABG Sodium ABG Potassium ABG Chloride ABG Glucose VBG pH Oxyhemoglobin Carboxyhemoglobin Sodium Potassium Chloride Carbon Dioxide BUN Creatinine Glucose POC Glucose 135 H 149 H Lactic Acid Calcium Ionized Calcium Magnesium AST ALT Alkaline Phosphatase Lactate Dehydrogenase NT-Pro-B Natriuret Pep Total Protein Albumin Arterial Blood Glucose Arterial Blood Ionized Calcium Urine WBC (Auto) Vancomycin Trough Phenytoin Crossmatch 10/07/20 10/07/20 10/07/20 07:05 07:05 12:21 WBC RBC Hgb Hct MCV MCH MCHC RDW Plt Count Lymph % (Auto) [place] % (Auto) Lymph # (Auto) [place] # (Auto) Baso # (Auto) Seg Neutrophils % Seg Neuts % (Manual) Lymphocytes % (Manual) Monocytes % (Manual) Nucleated RBC % Seg Neutrophils # Seg Neutrophils # Man Lymphocytes # (Manual) Monocytes # (Manual) PT INR APTT Fibrinogen D-Dimer ABG pH POC ABG pCO2 POC ABG pO2 ABG pO2 ABG HCO3 ABG Base Excess ABG Hemoglobin ABG Oxyhemoglobin ABG Sodium ABG Potassium ABG Chloride ABG Glucose VBG pH Oxyhemoglobin Carboxyhemoglobin Sodium Potassium Chloride Carbon Dioxide BUN 21 H Creatinine 1.7 H Glucose 171 H POC Glucose 124 H Lactic Acid Calcium 7.4 L Ionized Calcium Magnesium 6.10 H AST 245 H ALT 147 H Alkaline Phosphatase Lactate Dehydrogenase NT-Pro-B Natriuret Pep Total Protein 5.3 L Albumin 2.8 L Arterial Blood Glucose Arterial Blood Ionized Calcium Urine WBC (Auto) Vancomycin Trough Phenytoin Crossmatch 10/07/20 10/07/20 10/07/20 19:52 21:00 21:50 WBC RBC Hgb Hct MCV MCH MCHC RDW Plt Count Lymph % (Auto) [place] % (Auto) Lymph # (Auto) [place] # (Auto) Baso # (Auto) Seg Neutrophils % Seg Neuts % (Manual) Lymphocytes % (Manual) Monocytes % (Manual) Nucleated RBC % Seg Neutrophils # Seg Neutrophils # Man Lymphocytes # (Manual) Monocytes # (Manual) PT INR APTT Fibrinogen D-Dimer ABG pH POC ABG pCO2 POC ABG pO2 ABG pO2 ABG HCO3 ABG Base Excess ABG Hemoglobin ABG Oxyhemoglobin ABG Sodium ABG Potassium ABG Chloride ABG Glucose VBG pH Oxyhemoglobin Carboxyhemoglobin Sodium Potassium Chloride Carbon Dioxide BUN Creatinine Glucose POC Glucose 193 H 138 H Lactic Acid Calcium Ionized Calcium 4.4 L Magnesium AST ALT Alkaline Phosphatase Lactate Dehydrogenase NT-Pro-B Natriuret Pep Total Protein Albumin Arterial Blood Glucose Arterial Blood Ionized Calcium Urine WBC (Auto) Vancomycin Trough Phenytoin Crossmatch 10/07/20 10/08/20 10/08/20 23:41 04:20 05:30 WBC RBC Hgb Hct MCV MCH MCHC RDW Plt Count Lymph % (Auto) [place] % (Auto) Lymph # (Auto) [place] # (Auto) Baso # (Auto) Seg Neutrophils % Seg Neuts % (Manual) Lymphocytes % (Manual) Monocytes % (Manual) Nucleated RBC % Seg Neutrophils # Seg Neutrophils # Man Lymphocytes # (Manual) Monocytes # (Manual) PT INR APTT Fibrinogen D-Dimer ABG pH 7.467 H POC ABG pCO2 POC ABG pO2 189.8 H ABG pO2 ABG HCO3 ABG Base Excess ABG Hemoglobin 10.8 L ABG Oxyhemoglobin ABG Sodium ABG Potassium ABG Chloride ABG Glucose 133 H VBG pH Oxyhemoglobin Carboxyhemoglobin Sodium Potassium Chloride Carbon Dioxide BUN Creatinine Glucose POC Glucose 118 H 114 H Lactic Acid Calcium Ionized Calcium Magnesium AST ALT Alkaline Phosphatase Lactate Dehydrogenase NT-Pro-B Natriuret Pep Total Protein Albumin Arterial Blood Glucose 133 H Arterial Blood Ionized Calcium 4.2 L Urine WBC (Auto) Vancomycin Trough Phenytoin Crossmatch 10/08/20 10/08/20 10/08/20 05:43 06:42 06:42 WBC 23.6 H RBC 3.54 L Hgb Hct MCV MCH MCHC RDW 17.8 H Plt Count Lymph % (Auto) [place] % (Auto) Lymph # (Auto) [place] # (Auto) Baso # (Auto) Seg Neutrophils % Seg Neuts % (Manual) 93.0 H Lymphocytes % (Manual) 3.0 L Monocytes % (Manual) Nucleated RBC % 1.0 H Seg Neutrophils # Seg Neutrophils # Man 21.9 H Lymphocytes # (Manual) 0.7 L Monocytes # (Manual) 0.9 H PT INR APTT Fibrinogen D-Dimer ABG pH POC ABG pCO2 POC ABG pO2 ABG pO2 ABG HCO3 ABG Base Excess ABG Hemoglobin ABG Oxyhemoglobin ABG Sodium ABG Potassium ABG Chloride ABG Glucose VBG pH Oxyhemoglobin Carboxyhemoglobin Sodium Potassium Chloride Carbon Dioxide BUN 28 H Creatinine 1.6 H Glucose 141 H POC Glucose 126 H Lactic Acid Calcium 7.6 L Ionized Calcium Magnesium AST 162 H ALT 103 H Alkaline Phosphatase Lactate Dehydrogenase NT-Pro-B Natriuret Pep Total Protein 5.4 L Albumin 2.7 L Arterial Blood Glucose Arterial Blood Ionized Calcium Urine WBC (Auto) Vancomycin Trough Phenytoin Crossmatch 10/08/20 10/08/20 10/08/20 11:20 16:05 20:14 WBC RBC Hgb Hct MCV MCH MCHC RDW Plt Count Lymph % (Auto) [place] % (Auto) Lymph # (Auto) [place] # (Auto) Baso # (Auto) Seg Neutrophils % Seg Neuts % (Manual) Lymphocytes % (Manual) Monocytes % (Manual) Nucleated RBC % Seg Neutrophils # Seg Neutrophils # Man Lymphocytes # (Manual) Monocytes # (Manual) PT INR APTT Fibrinogen D-Dimer ABG pH POC ABG pCO2 POC ABG pO2 ABG pO2 ABG HCO3 ABG Base Excess ABG Hemoglobin ABG Oxyhemoglobin ABG Sodium ABG Potassium ABG Chloride ABG Glucose VBG pH Oxyhemoglobin Carboxyhemoglobin Sodium Potassium Chloride Carbon Dioxide BUN Creatinine Glucose POC Glucose 127 H 172 H 147 H Lactic Acid Calcium Ionized Calcium Magnesium AST ALT Alkaline Phosphatase Lactate Dehydrogenase NT-Pro-B Natriuret Pep Total Protein Albumin Arterial Blood Glucose Arterial Blood Ionized Calcium Urine WBC (Auto) Vancomycin Trough Phenytoin Crossmatch 10/08/20 10/08/20 10/09/20 21:27 23:24 02:10 WBC RBC Hgb Hct MCV MCH MCHC RDW Plt Count Lymph % (Auto) [place] % (Auto) Lymph # (Auto) [place] # (Auto) Baso # (Auto) Seg Neutrophils % Seg Neuts % (Manual) Lymphocytes % (Manual) Monocytes % (Manual) Nucleated RBC % Seg Neutrophils # Seg Neutrophils # Man Lymphocytes # (Manual) Monocytes # (Manual) PT INR APTT Fibrinogen D-Dimer ABG pH POC ABG pCO2 POC ABG pO2 ABG pO2 ABG HCO3 ABG Base Excess ABG Hemoglobin ABG Oxyhemoglobin ABG Sodium ABG Potassium ABG Chloride ABG Glucose VBG pH Oxyhemoglobin Carboxyhemoglobin Sodium Potassium Chloride Carbon Dioxide BUN Creatinine Glucose POC Glucose 140 H 135 H 111 H Lactic Acid Calcium Ionized Calcium Magnesium AST ALT Alkaline Phosphatase Lactate Dehydrogenase NT-Pro-B Natriuret Pep Total Protein Albumin Arterial Blood Glucose Arterial Blood Ionized Calcium Urine WBC (Auto) Vancomycin Trough Phenytoin Crossmatch 10/09/20 10/09/20 10/09/20 03:44 04:39 05:46 WBC 19.7 H RBC 3.51 L Hgb Hct MCV MCH MCHC RDW 17.7 H Plt Count Lymph % (Auto) [place] % (Auto) Lymph # (Auto) [place] # (Auto) Baso # (Auto) Seg Neutrophils % Seg Neuts % (Manual) 86.0 H Lymphocytes % (Manual) 4.0 L Monocytes % (Manual) 9.0 H Nucleated RBC % Seg Neutrophils # Seg Neutrophils # Man 16.9 H Lymphocytes # (Manual) 0.8 L Monocytes # (Manual) 1.8 H PT INR APTT Fibrinogen D-Dimer ABG pH 7.513 H POC ABG pCO2 POC ABG pO2 33.6 L ABG pO2 ABG HCO3 ABG Base Excess ABG Hemoglobin 11.1 L ABG Oxyhemoglobin 70.2 L ABG Sodium ABG Potassium 3.2 L ABG Chloride 108.0 H ABG Glucose 108 H VBG pH Oxyhemoglobin Carboxyhemoglobin Sodium Potassium Chloride Carbon Dioxide BUN Creatinine Glucose POC Glucose 109 H Lactic Acid Calcium Ionized Calcium Magnesium AST ALT Alkaline Phosphatase Lactate Dehydrogenase NT-Pro-B Natriuret Pep Total Protein Albumin Arterial Blood Glucose 108 H Arterial Blood Ionized Calcium 4.3 L Urine WBC (Auto) Vancomycin Trough Phenytoin Crossmatch 10/09/20 10/10/20 10/10/20 05:46 04:00 04:00 WBC 18.4 H RBC Hgb Hct MCV MCH MCHC RDW 17.5 H Plt Count Lymph % (Auto) 9.8 L [place] % (Auto) 8.8 H Lymph # (Auto) [place] # (Auto) 1.6 H Baso # (Auto) Seg Neutrophils % 80.0 H Seg Neuts % (Manual) Lymphocytes % (Manual) Monocytes % (Manual) Nucleated RBC % Seg Neutrophils # 14.7 H Seg Neutrophils # Man Lymphocytes # (Manual) Monocytes # (Manual) PT INR APTT Fibrinogen D-Dimer ABG pH POC ABG pCO2 POC ABG pO2 ABG pO2 ABG HCO3 ABG Base Excess ABG Hemoglobin ABG Oxyhemoglobin ABG Sodium ABG Potassium ABG Chloride ABG Glucose VBG pH Oxyhemoglobin Carboxyhemoglobin Sodium 146 H Potassium 3.2 L 2.9 L* Chloride 108.9 H 112.6 H Carbon Dioxide BUN 34 H 28 H Creatinine 1.4 H 1.3 H Glucose 109 H 101 H POC Glucose Lactic Acid Calcium 7.6 L 7.8 L Ionized Calcium Magnesium AST 137 H 122 H ALT 99 H 81 H Alkaline Phosphatase Lactate Dehydrogenase NT-Pro-B Natriuret Pep Total Protein 5.1 L 5.2 L Albumin 2.6 L 2.7 L Arterial Blood Glucose Arterial Blood Ionized Calcium Urine WBC (Auto) Vancomycin Trough Phenytoin Crossmatch 10/10/20 10/10/20 10/11/20 04:42 09:50 00:44 WBC RBC Hgb Hct MCV MCH MCHC RDW Plt Count Lymph % (Auto) [place] % (Auto) Lymph # (Auto) [place] # (Auto) Baso # (Auto) Seg Neutrophils % Seg Neuts % (Manual) Lymphocytes % (Manual) Monocytes % (Manual) Nucleated RBC % Seg Neutrophils # Seg Neutrophils # Man Lymphocytes # (Manual) Monocytes # (Manual) PT INR APTT Fibrinogen D-Dimer ABG pH 7.534 H POC ABG pCO2 POC ABG pO2 ABG pO2 95.2 H ABG HCO3 ABG Base Excess ABG Hemoglobin 11.3 L ABG Oxyhemoglobin ABG Sodium ABG Potassium ABG Chloride ABG Glucose VBG pH Oxyhemoglobin Carboxyhemoglobin Sodium Potassium Chloride Carbon Dioxide BUN Creatinine Glucose POC Glucose 109 H 106 H Lactic Acid Calcium Ionized Calcium Magnesium AST ALT Alkaline Phosphatase Lactate Dehydrogenase NT-Pro-B Natriuret Pep Total Protein Albumin Arterial Blood Glucose Arterial Blood Ionized Calcium Urine WBC (Auto) Vancomycin Trough Phenytoin Crossmatch 10/11/20 10/11/20 10/11/20 04:00 04:00 06:08 WBC 27.0 H RBC Hgb Hct MCV MCH MCHC RDW 17.7 H Plt Count Lymph % (Auto) 6.3 L [place] % (Auto) Lymph # (Auto) [place] # (Auto) 1.5 H Baso # (Auto) Seg Neutrophils % 87.1 H Seg Neuts % (Manual) Lymphocytes % (Manual) Monocytes % (Manual) Nucleated RBC % Seg Neutrophils # 23.5 H Seg Neutrophils # Man Lymphocytes # (Manual) Monocytes # (Manual) PT INR APTT Fibrinogen D-Dimer ABG pH POC ABG pCO2 POC ABG pO2 ABG pO2 ABG HCO3 ABG Base Excess ABG Hemoglobin ABG Oxyhemoglobin ABG Sodium ABG Potassium ABG Chloride ABG Glucose VBG pH Oxyhemoglobin Carboxyhemoglobin Sodium Potassium 3.2 L Chloride 110.4 H Carbon Dioxide 19 L BUN 22 H Creatinine Glucose 116 H POC Glucose 107 H Lactic Acid Calcium 7.7 L Ionized Calcium Magnesium 1.60 L AST ALT Alkaline Phosphatase Lactate Dehydrogenase NT-Pro-B Natriuret Pep Total Protein Albumin Arterial Blood Glucose Arterial Blood Ionized Calcium Urine WBC (Auto) Vancomycin Trough Phenytoin Crossmatch 10/11/20 10/11/20 10/12/20 11:41 13:26 03:52 WBC RBC Hgb Hct MCV MCH MCHC RDW Plt Count Lymph % (Auto) [place] % (Auto) Lymph # (Auto) [place] # (Auto) Baso # (Auto) Seg Neutrophils % Seg Neuts % (Manual) Lymphocytes % (Manual) Monocytes % (Manual) Nucleated RBC % Seg Neutrophils # Seg Neutrophils # Man Lymphocytes # (Manual) Monocytes # (Manual) PT INR APTT Fibrinogen D-Dimer ABG pH POC ABG pCO2 POC ABG pO2 ABG pO2 ABG HCO3 ABG Base Excess ABG Hemoglobin ABG Oxyhemoglobin ABG Sodium ABG Potassium ABG Chloride ABG Glucose VBG pH Oxyhemoglobin Carboxyhemoglobin Sodium Potassium Chloride Carbon Dioxide BUN Creatinine Glucose POC Glucose 116 H 114 H Lactic Acid Calcium Ionized Calcium Magnesium AST ALT Alkaline Phosphatase Lactate Dehydrogenase NT-Pro-B Natriuret Pep Total Protein Albumin Arterial Blood Glucose Arterial Blood Ionized Calcium Urine WBC (Auto) 24.0 H Vancomycin Trough Phenytoin Crossmatch 10/12/20 10/12/20 10/12/20 04:24 14:47 21:33 WBC RBC Hgb Hct MCV MCH MCHC RDW Plt Count Lymph % (Auto) [place] % (Auto) Lymph # (Auto) [place] # (Auto) Baso # (Auto) Seg Neutrophils % Seg Neuts % (Manual) Lymphocytes % (Manual) Monocytes % (Manual) Nucleated RBC % Seg Neutrophils # Seg Neutrophils # Man Lymphocytes # (Manual) Monocytes # (Manual) PT INR APTT Fibrinogen D-Dimer ABG pH POC ABG pCO2 POC ABG pO2 ABG pO2 ABG HCO3 ABG Base Excess ABG Hemoglobin ABG Oxyhemoglobin ABG Sodium ABG Potassium ABG Chloride ABG Glucose VBG pH Oxyhemoglobin Carboxyhemoglobin Sodium Potassium Chloride 109.9 H Carbon Dioxide 13 L BUN 18 H Creatinine Glucose 119 H POC Glucose 107 H Lactic Acid Calcium 7.6 L Ionized Calcium Magnesium 1.60 L AST ALT Alkaline Phosphatase Lactate Dehydrogenase NT-Pro-B Natriuret Pep Total Protein Albumin Arterial Blood Glucose Arterial Blood Ionized Calcium Urine WBC (Auto) Vancomycin Trough Phenytoin Crossmatch 10/12/20 10/12/20 10/13/20 Unknown Unknown 07:00 WBC 24.3 H RBC 3.38 L Hgb 9.8 L Hct MCV MCH MCHC RDW 18.7 H Plt Count Lymph % (Auto) [place] % (Auto) Lymph # (Auto) [place] # (Auto) Baso # (Auto) Seg Neutrophils % Seg Neuts % (Manual) 93.5 H Lymphocytes % (Manual) 4.5 L Monocytes % (Manual) Nucleated RBC % Seg Neutrophils # Seg Neutrophils # Man 22.7 H Lymphocytes # (Manual) 1.1 L Monocytes # (Manual) PT INR APTT Fibrinogen D-Dimer ABG pH POC ABG pCO2 POC ABG pO2 ABG pO2 ABG HCO3 ABG Base Excess ABG Hemoglobin ABG Oxyhemoglobin ABG Sodium ABG Potassium ABG Chloride ABG Glucose VBG pH Oxyhemoglobin Carboxyhemoglobin Sodium 135 L D Potassium 3.1 L Chloride Carbon Dioxide 17 L BUN Creatinine Glucose 510 H* POC Glucose Lactic Acid Calcium 7.2 L Ionized Calcium Magnesium AST ALT Alkaline Phosphatase Lactate Dehydrogenase NT-Pro-B Natriuret Pep Total Protein Albumin Arterial Blood Glucose Arterial Blood Ionized Calcium Urine WBC (Auto) Vancomycin Trough Phenytoin 5.7 L Crossmatch 10/13/20 10/13/20 10/13/20 07:00 07:00 07:18 WBC 23.6 H RBC 3.26 L Hgb 9.4 L Hct 28.7 L MCV MCH MCHC RDW 18.3 H Plt Count Lymph % (Auto) [place] % (Auto) Lymph # (Auto) [place] # (Auto) Baso # (Auto) Seg Neutrophils % Seg Neuts % (Manual) Lymphocytes % (Manual) Monocytes % (Manual) Nucleated RBC % Seg Neutrophils # Seg Neutrophils # Man Lymphocytes # (Manual) Monocytes # (Manual) PT INR APTT Fibrinogen D-Dimer ABG pH 7.473 H POC ABG pCO2 20.7 L POC ABG pO2 137.9 H ABG pO2 ABG HCO3 ABG Base Excess ABG Hemoglobin 11.2 L ABG Oxyhemoglobin 98.3 H ABG Sodium 135.9 L ABG Potassium ABG Chloride 111.0 H ABG Glucose 109 H VBG pH Oxyhemoglobin Carboxyhemoglobin 0.3 L Sodium 135 L Potassium 3.5 L Chloride 109.1 H Carbon Dioxide 18 L BUN Creatinine Glucose POC Glucose Lactic Acid Calcium 7.3 L Ionized Calcium Magnesium 1.60 L AST ALT Alkaline Phosphatase Lactate Dehydrogenase NT-Pro-B Natriuret Pep Total Protein Albumin Arterial Blood Glucose 109 H Arterial Blood Ionized Calcium Urine WBC (Auto) Vancomycin Trough Phenytoin Crossmatch 10/14/20 10/14/20 10/15/20 04:00 04:00 05:50 WBC 28.6 H 23.2 H RBC 3.61 L 3.43 L Hgb 9.9 L Hct 30.0 L MCV MCH MCHC RDW 18.3 H 18.2 H Plt Count Lymph % (Auto) [place] % (Auto) Lymph # (Auto) [place] # (Auto) Baso # (Auto) Seg Neutrophils % Seg Neuts % (Manual) 88.0 H 90.0 H Lymphocytes % (Manual) 5.0 L 4.0 L Monocytes % (Manual) Nucleated RBC % Seg Neutrophils # Seg Neutrophils # Man 25.2 H 20.9 H Lymphocytes # (Manual) 0.9 L Monocytes # (Manual) 1.4 H 0.9 H PT INR APTT Fibrinogen D-Dimer ABG pH POC ABG pCO2 POC ABG pO2 ABG pO2 ABG HCO3 ABG Base Excess ABG Hemoglobin ABG Oxyhemoglobin ABG Sodium ABG Potassium ABG Chloride ABG Glucose VBG pH Oxyhemoglobin Carboxyhemoglobin Sodium Potassium Chloride 109.9 H Carbon Dioxide 17 L BUN Creatinine Glucose POC Glucose Lactic Acid Calcium Ionized Calcium Magnesium AST ALT Alkaline Phosphatase Lactate Dehydrogenase NT-Pro-B Natriuret Pep Total Protein Albumin Arterial Blood Glucose Arterial Blood Ionized Calcium Urine WBC (Auto) Vancomycin Trough Phenytoin Crossmatch 10/15/20 10/16/20 10/17/20 05:50 11:57 04:57 WBC 15.2 H RBC 3.43 L Hgb Hct MCV MCH MCHC RDW 18.1 H Plt Count Lymph % (Auto) [place] % (Auto) Lymph # (Auto) [place] # (Auto) Baso # (Auto) Seg Neutrophils % Seg Neuts % (Manual) Lymphocytes % (Manual) Monocytes % (Manual) Nucleated RBC % Seg Neutrophils # Seg Neutrophils # Man Lymphocytes # (Manual) Monocytes # (Manual) PT INR APTT Fibrinogen D-Dimer ABG pH POC ABG pCO2 POC ABG pO2 ABG pO2 ABG HCO3 ABG Base Excess ABG Hemoglobin ABG Oxyhemoglobin ABG Sodium ABG Potassium ABG Chloride ABG Glucose VBG pH Oxyhemoglobin Carboxyhemoglobin Sodium Potassium Chloride 110.3 H Carbon Dioxide 18 L BUN Creatinine Glucose 105 H POC Glucose 111 H Lactic Acid Calcium 8.3 L Ionized Calcium Magnesium AST ALT Alkaline Phosphatase Lactate Dehydrogenase NT-Pro-B Natriuret Pep Total Protein Albumin Arterial Blood Glucose Arterial Blood Ionized Calcium Urine WBC (Auto) Vancomycin Trough Phenytoin Crossmatch 10/17/20 10/17/20 10/18/20 05:25 21:16 01:31 WBC RBC Hgb Hct MCV MCH MCHC RDW Plt Count Lymph % (Auto) [place] % (Auto) Lymph # (Auto) [place] # (Auto) Baso # (Auto) Seg Neutrophils % Seg Neuts % (Manual) Lymphocytes % (Manual) Monocytes % (Manual) Nucleated RBC % Seg Neutrophils # Seg Neutrophils # Man Lymphocytes # (Manual) Monocytes # (Manual) PT INR APTT Fibrinogen D-Dimer ABG pH POC ABG pCO2 POC ABG pO2 ABG pO2 ABG HCO3 ABG Base Excess ABG Hemoglobin ABG Oxyhemoglobin ABG Sodium ABG Potassium ABG Chloride ABG Glucose VBG pH Oxyhemoglobin Carboxyhemoglobin Sodium Potassium Chloride Carbon Dioxide BUN Creatinine Glucose POC Glucose 107 H 106 H 119 H Lactic Acid Calcium Ionized Calcium Magnesium AST ALT Alkaline Phosphatase Lactate Dehydrogenase NT-Pro-B Natriuret Pep Total Protein Albumin Arterial Blood Glucose Arterial Blood Ionized Calcium Urine WBC (Auto) Vancomycin Trough Phenytoin Crossmatch 10/18/20 10/18/20 10/19/20 05:45 11:23 01:14 WBC RBC Hgb Hct MCV MCH MCHC RDW Plt Count Lymph % (Auto) [place] % (Auto) Lymph # (Auto) [place] # (Auto) Baso # (Auto) Seg Neutrophils % Seg Neuts % (Manual) Lymphocytes % (Manual) Monocytes % (Manual) Nucleated RBC % Seg Neutrophils # Seg Neutrophils # Man Lymphocytes # (Manual) Monocytes # (Manual) PT INR APTT Fibrinogen D-Dimer ABG pH POC ABG pCO2 POC ABG pO2 ABG pO2 ABG HCO3 ABG Base Excess ABG Hemoglobin ABG Oxyhemoglobin ABG Sodium ABG Potassium ABG Chloride ABG Glucose VBG pH Oxyhemoglobin Carboxyhemoglobin Sodium Potassium Chloride Carbon Dioxide BUN Creatinine Glucose POC Glucose 106 H 115 H 108 H Lactic Acid Calcium Ionized Calcium Magnesium AST ALT Alkaline Phosphatase Lactate Dehydrogenase NT-Pro-B Natriuret Pep Total Protein Albumin Arterial Blood Glucose Arterial Blood Ionized Calcium Urine WBC (Auto) Vancomycin Trough Phenytoin Crossmatch 10/19/20 10/20/20 10/20/20 09:57 05:40 07:59 WBC RBC Hgb Hct MCV MCH MCHC RDW Plt Count Lymph % (Auto) [place] % (Auto) Lymph # (Auto) [place] # (Auto) Baso # (Auto) Seg Neutrophils % Seg Neuts % (Manual) Lymphocytes % (Manual) Monocytes % (Manual) Nucleated RBC % Seg Neutrophils # Seg Neutrophils # Man Lymphocytes # (Manual) Monocytes # (Manual) PT INR APTT Fibrinogen D-Dimer ABG pH POC ABG pCO2 POC ABG pO2 ABG pO2 ABG HCO3 ABG Base Excess ABG Hemoglobin ABG Oxyhemoglobin ABG Sodium ABG Potassium ABG Chloride ABG Glucose VBG pH Oxyhemoglobin Carboxyhemoglobin Sodium Potassium Chloride Carbon Dioxide BUN Creatinine Glucose 106 H POC Glucose 122 H 109 H Lactic Acid Calcium Ionized Calcium Magnesium AST ALT Alkaline Phosphatase Lactate Dehydrogenase NT-Pro-B Natriuret Pep Total Protein Albumin Arterial Blood Glucose Arterial Blood Ionized Calcium Urine WBC (Auto) Vancomycin Trough Phenytoin Crossmatch 10/20/20 10/20/20 10/21/20 16:52 16:52 13:54 WBC 18.8 H 17.0 H RBC Hgb Hct MCV MCH MCHC RDW 17.7 H 17.8 H Plt Count 547 H 544 H Lymph % (Auto) 11.2 L [place] % (Auto) 8.1 H Lymph # (Auto) [place] # (Auto) 1.5 H Baso # (Auto) 0.2 H Seg Neutrophils % 78.8 H Seg Neuts % (Manual) Lymphocytes % (Manual) Monocytes % (Manual) Nucleated RBC % Seg Neutrophils # 14.8 H Seg Neutrophils # Man Lymphocytes # (Manual) Monocytes # (Manual) PT INR APTT Fibrinogen D-Dimer ABG pH POC ABG pCO2 POC ABG pO2 ABG pO2 ABG HCO3 ABG Base Excess ABG Hemoglobin ABG Oxyhemoglobin ABG Sodium ABG Potassium ABG Chloride ABG Glucose VBG pH Oxyhemoglobin Carboxyhemoglobin Sodium Potassium Chloride Carbon Dioxide BUN Creatinine Glucose POC Glucose Lactic Acid Calcium Ionized Calcium Magnesium AST ALT Alkaline Phosphatase Lactate Dehydrogenase NT-Pro-B Natriuret Pep Total Protein Albumin Arterial Blood Glucose Arterial Blood Ionized Calcium Urine WBC (Auto) Vancomycin Trough 34.5 H Phenytoin Crossmatch 10/21/20 10/22/20 10/23/20 13:54 07:26 05:34 WBC 18.7 H 13.0 H RBC 3.64 L 3.50 L Hgb Hct 30.0 L MCV MCH MCHC 35 H RDW 17.7 H 17.6 H Plt Count 502 H 503 H Lymph % (Auto) [place] % (Auto) Lymph # (Auto) [place] # (Auto) Baso # (Auto) Seg Neutrophils % Seg Neuts % (Manual) Lymphocytes % (Manual) Monocytes % (Manual) Nucleated RBC % Seg Neutrophils # Seg Neutrophils # Man Lymphocytes # (Manual) Monocytes # (Manual) PT INR APTT Fibrinogen D-Dimer ABG pH POC ABG pCO2 POC ABG pO2 ABG pO2 ABG HCO3 ABG Base Excess ABG Hemoglobin ABG Oxyhemoglobin ABG Sodium ABG Potassium ABG Chloride ABG Glucose VBG pH Oxyhemoglobin Carboxyhemoglobin Sodium 136 L Potassium Chloride Carbon Dioxide BUN Creatinine Glucose 120 H POC Glucose Lactic Acid Calcium Ionized Calcium Magnesium AST ALT Alkaline Phosphatase Lactate Dehydrogenase NT-Pro-B Natriuret Pep Total Protein Albumin Arterial Blood Glucose Arterial Blood Ionized Calcium Urine WBC (Auto) Vancomycin Trough Phenytoin Crossmatch 10/23/20 05:34 WBC RBC Hgb Hct MCV MCH MCHC RDW Plt Count Lymph % (Auto) [place] % (Auto) Lymph # (Auto) [place] # (Auto) Baso # (Auto) Seg Neutrophils % Seg Neuts % (Manual) Lymphocytes % (Manual) Monocytes % (Manual) Nucleated RBC % Seg Neutrophils # Seg Neutrophils # Man Lymphocytes # (Manual) Monocytes # (Manual) PT INR APTT Fibrinogen D-Dimer ABG pH POC ABG pCO2 POC ABG pO2 ABG pO2 ABG HCO3 ABG Base Excess ABG Hemoglobin ABG Oxyhemoglobin ABG Sodium ABG Potassium ABG Chloride ABG Glucose VBG pH Oxyhemoglobin Carboxyhemoglobin Sodium 135 L Potassium Chloride Carbon Dioxide BUN Creatinine Glucose 105 H POC Glucose Lactic Acid Calcium Ionized Calcium Magnesium AST ALT Alkaline Phosphatase Lactate Dehydrogenase NT-Pro-B Natriuret Pep Total Protein Albumin Arterial Blood Glucose Arterial Blood Ionized Calcium Urine WBC (Auto) Vancomycin Trough Phenytoin Crossmatch
--- NOTE | 2020-10-24 11:04 | Progress Note ---
Assessment and Plan Assessment and plan: 30 year old -Togolese female CHE 10/25/20 at 36w5d who presents with seizures in triage on 10/02/20. Pt was not able to provide history but per pt's , she presented to the hospital to return a 24 hour urine specimen for analysis. She then suddenly reported that she did not feel good. She was taken to labor and delivery and shortly after arrival, she began seizing. During this time, a code met was called because the patient became hypoxic. She was then noted to be without a pulse. Chest compressions were started immediately, and the patient was emergently taken to the operating room for delivery of the fetus. Off note, This patient has had care at [facility] with comanagement by [facility] since 11 wks complicated by ADHD, morbid obesity, generalized anxiety disorder, panic attacks, chronic narcotic use, fibromyalgia, GERD, Irritable Bowel Syndrome, Migraines, h/o endometrial ablation and ovarian vein embolization, genital herpes, insomnia, LGA fetus, nausea and vomiting, polyhydramnios, quad screen positive for Down's Syndrome, and previous x 3. She is GBS negative. Acute respiratory failure with hypoxia Sepsis Preeclampsia Cardiac arrest DIC (disseminated intravascular coagulation) Shock ADOLPH (acute kidney injury) Acute Metabolic Encephalopathy ?Hypoxic DVT SVT in the RUE 11:30: Pt brought to L&D triage for evaluation of possible labor. Pt accompanied by her spouse. Pt spouse poor historian; unable to obtain history- allergies at this time. Pt taken from registration to triage area via WC. Pt unresponsive, actively seizing with snorous respirations. decorator hand, Kassy, called and requesting assistance. 11:35: Multiple staff at bedside. Pt 02 sat 67% on nonrebreather, unable to read BP at this time. Yifan Theodore CRNA, at bedside for intubation and assistance with IV insertion. INT attempt by multiple RNs unsuccessful at this time. 11:42: Pt being bagged by KORIN, 02% 79%. No pulse palpated, compressions started at this time; bharati young called and Dr. Newberry preparing OR for emergent c/s. 11:44: Continued compressions on stretcher while transporting pt to OR 1. Pt being bagged with jaw thrust manuever in place by KORIN Stringer student. 11:45: Arrival to OR 1. Dr. Newberry and Dr. Portillo present for emergent c/s. Code team arrived for continued care. patient revived and c/s done Patient has been bleeding from C/s site followed by supracervical hysterectomy for severe bleeding Patient transfused multiple units of PRBC, Patient in DIC. Transferred to the ICU 10/03. Patient seen and examined at bedside this morning. Patient is nonresponsive and mechanically ventilated. On pressors. Labs reviewed-has leukocytosis, anemia, thrombocytopenia, ADOLPH and lactic acidosis. Started on IV antibiotics to cover possible sepsis secondary to DIC. Hematology oncology recommendations appreciated-needs additional cryoprecipitate and FFP. Monitor D-dimer, fibrinogen and frequent labs. Nephrology consulted for lactic acidosis and ADOLPH. 10/04. Remains mechanically ventilated. [place] antibiotics. Labs shows improved acidosis - lactic acid 3.5. Hb drop noted. Getting transfused 2 units PRBCs. Platelet count is ~40k. Continue to monitor labs closely. Critical care team on board. 10/05; xray reviewed, concerning for multifocal infilrate, likely underlying Pneumonia, will add ID consult to assist with management of this critically ill patient, start tube feed, closely monitor renal system 10/06: Resumed care, remains on mechanical ventilation. No active bleeding, H&H stable. Continue to monitor CBC and BMP. Continue IV antibiotic for underlying pneumonia. Follow critical care and ID recommendation. 10/07: Remains on mechanical ventilation. No active bleeding, H&H stable. Critical care following, wean off ventilation as tolerated. 10/08: Patient had another cardiac arrest last night. Remains on mechanical ventilation, update family. Continue supportive care -poor prognosis 10/09: Called patient mother and discussed about patient care and management. Answered all question to best of my knowledge and family satisfaction. Patient remains on mechanical ventilation, cardiac arrest x2 so far. Critically sick, poor prognosis 10/10: remains on mechanical ventilation. h/h stable, no active bleeding. monitor CBC/BMP 10/11: WBC trended up with diarrhea, started on vancomycin po. remains on MV, off pressor, tolerating TF 10/12: remains on MV, off pressor, tolerating TF. called family for update but unable to reach, could not leave message as it was full. cont supportive care, wean off vent as tolerated. 10/13/2020; patient is on mechanical ventilation, tolerating tube feeding. Patient has labored breathing. Neuro was consulted and recommend MRI. Patient is on Precedex. Rectal tube in place. 10/14/2020; patient is on mechanical ventilation, Precedex. Patient had fever and blood culture ordered. Patient is on IV vancomycin per ID recommendation. Neuro consulted and recommend MRI. Continue to monitor. Prognosis is guarded. 10/15/2020; patient is on mechanical ventilation, Precedex. Patient had fever and blood culture ordered. Patient is on IV vancomycin per ID recommendation. Neuro consulted and recommend MRI. Continue to monitor. Prognosis is guarded. 1: Remains with C.DIFF and Bactermia, Poor prognosis. No purposeful movement. MRI and EEG discussed with Intensvisit, Continue aggressive BP control. 10/18: Blood pressure better controlled MRI done 10/15 shows mild improvement in edema. We will continue to monitor mother was at bedside yesterday. Nursing documentation trach and PEG discussed with the mother including goals of care. She is still in denial about the gravity of her daughters her condition which is understandable considering her age. Continue aggressive management at this time. Await for bacteremia to clear by ID before placing PICC line. 10/19: Patient for possible PEG and Trach, ID following, repeat cultures remain negative. Poor prognosis 10/20: Pt noted to DVT and SVT in the RUE, Vascular consult and will also obtain Hematology for possible considering changing in Anticoagulation. CONTINUE TO MONITOR H/H and PLT. Family updated by [employer]ens[employer]. Heparin gtt started. Will check CBC and BMP 10/21: Continue supporive care, Diarrhea now resolving, But still with persistent Fever, May need repeat CT/AP per ID, still with profused Encephalopathy 10/22: Continue supportive care, weaning, awaiting repeat Imaging. FOLLOW Fever curve. Enoxparin restarted 10/23: Continue supportive care, wean as tolerated. 10/24; Started on cpap trial, discussed with pulmonary, still with diarrhea. The high probability of a clinically significant, sudden or life threatening deterioration of the [MULTIPLE ORGAN] system(s) required my full and direct attention, intervention and personal management. The aggregate critical care time was [35] minutes. This time is in addition to time spent performing reported procedures but includes the following: [X] Data Review and interpretation [X] Patient assessment and monitoring of vital signs [X] Documentation [X] Medication orders and management History Interval history: Patient seen and examined, remains critical ill on the ventilator. She is s/p Trach and PEG. Still not responding. Hospitalist Physical - Physical exam Narrative exam: VITAL SIGNS: Reviewed. GENERAL: Intubated HEAD: No signs of head trauma. Opens her eyes but no purposeful movement EYES: Pupils are equal. MOUTH: clear NECK: No adenopathy, no JVD. Trach CHEST: Rales posteriorly CARDIAC: normal S1 and S2, without murmurs, gallops, or rubs. ABDOMEN: PEG, Soft, non tender and non distended. surgical wound in tact, No rebound or guarding, and no masses palpated. Bowel Sounds normal. AVINASH drain intact with bloody fluid MUSCULOSKELETAL: No edema NEUROLOGIC EXAM: Intubated SKIN: No obvious lesions - Constitutional Vitals: Temp Pulse Resp BP Pulse Ox 99 F 93 H 24 121/70 99 10/24/20 04:00 10/24/20 10:00 10/24/20 10:00 10/24/20 10:00 10/24/20 10:00 General appearance: Present: other (Intubated, noncommunicative, does not try to respond) HEART Score - HEART Score Age: < 45 Risk factors: 1-2 risk factors - Critical Actions Critical Actions: >7 pts:50-65% risk of adverse cardiac event. Early invasive measures Results - Labs CBC & Chem 7: 10/23/20 05:34 10/23/20 05:34 Labs: Laboratory Last Values WBC 13.0 K/mm3 (4.5-11.0) H 10/23/20 05:34 RBC 3.50 M/mm3 (3.65-5.03) L 10/23/20 05:34 Hgb 10.4 gm/dl (10.1-14.3) 10/23/20 05:34 Hgb Comment See scanned result 10/04/20 Unknown Hct 30.0 % (30.3-42.9) L 10/23/20 05:34 MCV 86 fl (79-97) 10/23/20 05:34 MCH 30 pg (28-32) 10/23/20 05:34 MCHC 35 % (30-34) H 10/23/20 05:34 RDW 17.6 % (13.2-15.2) H 10/23/20 05:34 Plt Count 503 K/mm3 (140-440) H 10/23/20 05:34 Lymph % (Auto) 11.2 % (13.4-35.0) L 10/20/20 16:52 [place] % (Auto) 8.1 % (0.0-7.3) H 10/20/20 16:52 Eos % (Auto) 0.8 % (0.0-4.3) 10/20/20 16:52 Baso % (Auto) 1.1 % (0.0-1.8) 10/20/20 16:52 Lymph # (Auto) 2.1 K/mm3 (1.2-5.4) 10/20/20 16:52 [place] # (Auto) 1.5 K/mm3 (0.0-0.8) H 10/20/20 16:52 Eos # (Auto) 0.2 K/mm3 (0.0-0.4) 10/20/20 16:52 Baso # (Auto) 0.2 K/mm3 (0.0-0.1) H 10/20/20 16:52 Add Manual Diff Complete 10/15/20 05:50 Total Counted 100 10/15/20 05:50 Seg Neutrophils % 78.8 % (40.0-70.0) H 10/20/20 16:52 Seg Neuts % (Manual) 90.0 % (40.0-70.0) H 10/15/20 05:50 Band Neutrophils % 2.0 % 10/15/20 05:50 Lymphocytes % (Manual) 4.0 % (13.4-35.0) L 10/15/20 05:50 Reactive Lymphs % (Man) 1.0 % 10/02/20 12:18 Monocytes % (Manual) 4.0 % (0.0-7.3) 10/15/20 05:50 Eosinophils % (Manual) 1.0 % (0.0-4.3) 10/14/20 04:00 Myelocytes % 2.0 % 10/02/20 13:05 Metamyelocytes % 1.0 % 10/14/20 04:00 Nucleated RBC % Not Reportable 10/15/20 05:50 Seg Neutrophils # 14.8 K/mm3 (1.8-7.7) H 10/20/20 16:52 Seg Neutrophils # Man 20.9 K/mm3 (1.8-7.7) H 10/15/20 05:50 Band Neutrophils # 0.5 K/mm3 10/15/20 05:50 Lymphocytes # (Manual) 0.9 K/mm3 (1.2-5.4) L 10/15/20 05:50 Abs React Lymphs (Man) 0.0 K/mm3 10/15/20 05:50 Monocytes # (Manual) 0.9 K/mm3 (0.0-0.8) H 10/15/20 05:50 Eosinophils # (Manual) 0.0 K/mm3 (0.0-0.4) 10/15/20 05:50 Basophils # (Manual) 0.0 K/mm3 (0.0-0.1) 10/15/20 05:50 Metamyelocytes # 0.0 K/mm3 10/15/20 05:50 Myelocytes # 0.0 K/mm3 10/15/20 05:50 Promyelocytes # 0.0 K/mm3 10/15/20 05:50 Blast Cells # 0.0 K/mm3 10/15/20 05:50 WBC Morphology Not Reportable 10/15/20 05:50 Hypersegmented Neuts Not Reportable 10/15/20 05:50 Hyposegmented Neuts Not Reportable 10/15/20 05:50 Hypogranular Neuts Not Reportable 10/15/20 05:50 Smudge Cells Not Reportable 10/15/20 05:50 Toxic Granulation Not Reportable 10/15/20 05:50 Toxic Vacuolation Not Reportable 10/15/20 05:50 Dohle Bodies Not Reportable 10/15/20 05:50 Pelger-Huet Anomaly Not Reportable 10/15/20 05:50 Ester Rods Not Reportable 10/15/20 05:50 Platelet Estimate Consistent w auto 10/15/20 05:50 Clumped Platelets Not Reportable 10/15/20 05:50 Plt Clumps, EDTA Not Reportable 10/15/20 05:50 Large Platelets Not Reportable 10/15/20 05:50 Giant Platelets Not Reportable 10/15/20 05:50 Platelet Satelliting Not Reportable 10/15/20 05:50 Plt Morphology Comment Not Reportable 10/15/20 05:50 RBC Morphology Not Reportable 10/15/20 05:50 Dimorphic RBCs Not Reportable 10/15/20 05:50 Polychromasia Not Reportable 10/15/20 05:50 Hypochromasia Few 10/15/20 05:50 Poikilocytosis Not Reportable 10/15/20 05:50 Anisocytosis 1+ 10/15/20 05:50 Microcytosis Not Reportable 10/15/20 05:50 Macrocytosis Not Reportable 10/15/20 05:50 Spherocytes Not Reportable 10/15/20 05:50 Pappenheimer Bodies Not Reportable 10/15/20 05:50 Sickle Cells Not Reportable 10/15/20 05:50 Target Cells Not Reportable 10/15/20 05:50 Tear Drop Cells Not Reportable 10/15/20 05:50 Ovalocytes Not Reportable 10/15/20 05:50 Stomatocytes Few 10/14/20 04:00 Helmet Cells Not Reportable 10/15/20 05:50 Burk-[place] Bodies Not Reportable 10/15/20 05:50 [place] Rings Not Reportable 10/15/20 05:50 Antoine Cells Not Reportable 10/15/20 05:50 Bite Cells Not Reportable 10/15/20 05:50 Crenated Cell Not Reportable 10/15/20 05:50 Elliptocytes Not Reportable 10/15/20 05:50 Acanthocytes (Spur) Not Reportable 10/15/20 05:50 Rouleaux Not Reportable 10/15/20 05:50 Hemoglobin C Crystals Not Reportable 10/15/20 05:50 Schistocytes Not Reportable 10/15/20 05:50 Malaria parasites Not Reportable 10/15/20 05:50 Sickle Cell Solubility See scanned result 10/04/20 Unknown Hemoglobin A See scanned result 10/04/20 Unknown Hemoglobin A2 See scanned result 10/04/20 Unknown Hemoglobin A2 Prime See scanned result 10/04/20 Unknown Hemoglobin C See scanned result 10/04/20 Unknown Hemoglobin D See scanned result 10/04/20 Unknown Hemoglobin E See scanned result 10/04/20 Unknown Hgb F Diffential Stain See scanned result 10/04/20 Unknown Hemoglobin F Quant See scanned result 10/04/20 Unknown Hemoglobin G See scanned result 10/04/20 Unknown Hemoglobin S See scanned result 10/04/20 Unknown Hemoglobin [place] See scanned result 10/04/20 Unknown Hemoglobin [place] See scanned result 10/04/20 Unknown Hemoglobin Analilia See scanned result 10/04/20 Unknown Variant Hemoglobin See scanned result 10/04/20 Unknown Abnorm Hgb IEF Confirm See scanned result 10/04/20 Unknown Hemoglobin Interpret See scanned result 10/04/20 Unknown Hemoglobinopathy Note See scanned result 10/04/20 Unknown Sharad Bodies Not Reportable 10/15/20 05:50 Hem Pathologist Commnt No 10/15/20 05:50 PT 13.6 Sec. (12.2-14.9) 10/21/20 13:54 INR 1.06 (0.87-1.13) 10/21/20 13:54 APTT 31.6 Sec. (24.2-36.6) 10/03/20 00:40 Fibrinogen 336 mg/dl (211-480) 10/04/20 10:00 D-Dimer > 58582 ng/mlDDU (0-234) H 10/04/20 10:00 ABG pH 7.473 (7.320-7.450) H 10/13/20 07:18 POC ABG pCO2 20.7 mmHg (32.0-48.0) L 10/13/20 07:18 ABG pCO2 25.0 mm Hg 10/10/20 04:42 POC ABG pO2 137.9 mmHg (83-108) H 10/13/20 07:18 ABG pO2 95.2 mm Hg (80.0-90.0) H 10/10/20 04:42 POC ABG HCO3 14.8 10/13/20 07:18 ABG HCO3 20.6 mmol/L (20.0-26.0) 10/10/20 04:42 ABG O2 Saturation 97.9 % (95.0-99.0) 10/10/20 04:42 ABG O2 Content 15.4 (0.0-44) 10/10/20 04:42 POC ABG Base Excess -6.9 10/13/20 07:18 ABG Base Excess -0.8 mmol/L (-2.0-3.0) 10/10/20 04:42 ABG Hemoglobin 11.2 (12.0-17.5) L 10/13/20 07:18 ABG Oxyhemoglobin 98.3 (94-98) H 10/13/20 07:18 ABG Carboxyhemoglobin 1.4 % (0.0-5.0) 10/10/20 04:42 ABG Methemoglobin 0.3 (0.0-1.5) 10/13/20 07:18 ABG Sodium 135.9 mmol/L (136.0-145.0) L 10/13/20 07:18 ABG Potassium 3.7 mmol/L (3.40-4.50) 10/13/20 07:18 ABG Chloride 111.0 mmol/L (98-107) H 10/13/20 07:18 ABG Glucose 109 mg/dL (65-95) H 10/13/20 07:18 VBG pH 6.949 (7.320-7.420) L* 10/02/20 Unknown Oxyhemoglobin 95.9 % (95.0-99.0) 10/10/20 04:42 Carboxyhemoglobin 0.3 (0.5-1.5) L 10/13/20 07:18 FiO2 30.0 10/13/20 07:18 Sodium 135 mmol/L (137-145) L 10/23/20 05:34 Potassium 4.0 mmol/L (3.6-5.0) 10/23/20 05:34 Chloride 100.4 mmol/L (98-107) 10/23/20 05:34 Carbon Dioxide 23 mmol/L (22-30) 10/23/20 05:34 Anion Gap 16 mmol/L 10/23/20 05:34 BUN 17 mg/dL (7-17) 10/23/20 05:34 Creatinine 0.6 mg/dL (0.6-1.2) 10/23/20 05:34 Estimated GFR > 60 ml/min 10/23/20 05:34 BUN/Creatinine Ratio 28 % 10/23/20 05:34 Glucose 105 mg/dL (65-100) H 10/23/20 05:34 POC Glucose 105 mg/dL (70-105) 10/24/20 05:30 Lactic Acid 1.90 mmol/L (0.7-2.0) 10/04/20 22:00 Uric Acid 7.5 mg/dL (3.5-7.6) 10/02/20 13:05 Calcium 9.5 mg/dL (8.4-10.2) 10/23/20 05:34 Ionized Calcium 4.4 mg/dL (4.8-5.6) L 10/07/20 21:00 Phosphorus 4.00 mg/dL (2.5-4.5) 10/20/20 07:59 Magnesium 1.80 mg/dL (1.7-2.3) 10/20/20 07:59 Total Bilirubin 0.90 mg/dL (0.1-1.2) 10/10/20 04:00 AST 122 units/L (5-40) H 10/10/20 04:00 ALT 81 units/L (7-56) H 10/10/20 04:00 Alkaline Phosphatase 94 units/L (35-129) 10/10/20 04:00 Lactate Dehydrogenase 769 units/L (91-180) H 10/02/20 13:05 NT-Pro-B Natriuret Pep 2788 pg/mL (0-450) H 10/04/20 10:00 Total Protein 5.2 g/dL (6.3-8.2) L 10/10/20 04:00 Albumin 2.7 g/dL (3.9-5) L 10/10/20 04:00 Albumin/Globulin Ratio 1.1 % 10/10/20 04:00 Procalcitonin 0.58 ng/mL (<0.15) 10/11/20 15:33 Arterial Blood Glucose 109 mg/dL (65-95) H 10/13/20 07:18 Arterial Blood Ionized Calcium 4.6 mg/dL (4.6-5.3) 10/13/20 07:18 Urine Color Yellow (Yellow) 10/11/20 13:26 Urine Turbidity Clear (Clear) 10/11/20 13:26 Urine pH 7.0 (5.0-7.0) 10/11/20 13:26 Ur Specific [place] 1.014 (1.003-1.030) 10/11/20 13:26 Urine Protein 100 mg/dl mg/dL (Negative) 10/11/20 13:26 Urine Glucose (UA) Neg mg/dL (Negative) 10/11/20 13:26 Urine Ketones Neg mg/dL (Negative) 10/11/20 13:26 Urine Blood Mod (Negative) 10/11/20 13:26 Urine Nitrite Neg (Negative) 10/11/20 13:26 Urine Bilirubin Neg (Negative) 10/11/20 13:26 Urine Urobilinogen < 2.0 mg/dL (<2.0) 10/11/20 13:26 Ur Leukocyte Esterase Sm (Negative) 10/11/20 13:26 Urine WBC (Auto) 24.0 /HPF (0.0-6.0) H 10/11/20 13:26 Urine RBC (Auto) 59.0 /HPF (0.0-6.0) 10/11/20 13:26 Urine Bacteria (Auto) 1+ /HPF (Negative) 10/11/20 13:26 Urine Mucus Few /HPF 10/11/20 13:26 Vancomycin Trough 12.6 ug/mL (5.0-20.0) 10/21/20 13:54 Random Vancomycin 10.7 ug/mL (0-40.0) 10/16/20 13:09 Phenytoin 5.7 ug/mL (10.0-20.0) L 10/13/20 07:00 C. difficile Tox (PCR) Positive (Negative) 10/16/20 10:22 Coronavirus (PCR) Negative (Negative) 10/08/20 14:15 Blood Type O POSITIVE 10/02/20 12:50 Antibody Screen Negative 10/02/20 12:50 Crossmatch See Detail 10/02/20 12:50 - Diagnostic Impressions Diagnostic Impressions: Echocardiogram 10/03/20 13:42 Transthoracic Echocardiogram Indication: S/P Cardiac Arrest R/O Cardiomyopathy BP: 133/71 Conclusions *Global left ventricular systolic function is normal. *The estimated ejection fraction is 60-65%. *There is trace of mitral regurgitation. *The right 0heart chambers are both slightly dilated. *There is mild tricuspid regurgitation. *There is mild-moderate pulmonary hypertension. *The right ventricular systolic pressure is calculated at 44 mmHg. *The study quality is technically difficult. Findings Procedure Info: The study quality is technically difficult. The study is technically limited due to patient body habitus. The study was technically limited due to the patient's inability to lay in the left lateral decubitus position. Left Ventricle: The left ventricular chamber size is normal. There is no left ventricular hypertrophy. Global left ventricular systolic function is normal. The estimated ejection fraction is 60-65%. Left Atrium: The left atrial chamber size is normal. Right Ventricle: The right ventricle is slightly dilated. Right Atrium: The right atrium is mildly dilated. Aortic Valve: The aortic valve leaflets are mildly thickened. There is no evidence of aortic regurgitation. There is no evidence of aortic stenosis. Mitral Valve: The mitral valve leaflets are mildly thickened. There is trace of mitral regurgitation. There is no evidence of mitral stenosis. Tricuspid Valve: There is mild tricuspid regurgitation. The right ventricular systolic pressure is calculated at 44 mmHg. There is evidence of mild pulmonary hypertension. Pulmonic Valve: There is trace pulmonic regurgitation. Pericardium: There is no pericardial effusion. Aorta: There is no dilatation of the ascending aorta. There is no dilatation of the aortic root. Venous: The inferior vena cava is dilated. Measurements Chambers 2D Name Value Normal Range IVSd (2D) 1 cm (0.6 - 1.1) LVPWd (2D) 1.01 cm (0.6 - 1.1) LVIDd (2D) 4.58 cm (3.7 - 5.6) LVIDs (2D) 3.17 cm (2 - 3.8) LV FS (2D) 30.93 % - EF Teichholz (2D) 58.66 % - Ao root diameter (2D) 2.94 cm (2 - 3.7) Volumes/Mass Name Value Normal Range LA ESV SP 4CH (A/L) 72.82 ml - LA ESV SP 2CH (A/L) 66.86 ml - LA ESV BP (A/L) 74.49 ml - LA ESV SP 4CH (MOD) 71.03 ml - LA ESV SP 2CH (MOD) 64.3 ml - LV EDV SP 4CH (MOD) 98.82 ml - LV ESV SP 4CH (MOD) 24.8 ml - EF SP 4CH (MOD) 74.9 % - LV EDV SP 2CH (MOD) 86.1 ml - LV ESV SP 2CH (MOD) 36.93 ml - EF SP 2CH (MOD) 57.11 % - LV EDV BP 94.4 ml - LV ESV BP 32.66 ml - BP EF (MOD) 65.4 % - Diastolic/Systolic Function Name Value Normal Range MV E-wave Vmax 1.04 m/sec - MV deceleration time 160.46 msec - MV A-wave Vmax 0.92 m/sec - MV E:A ratio 1.14 ratio - Aortic Valve Name Value Normal Range AV Vmax 2.12 m/sec - AV VTI 22.37 cm - AV peak gradient 17.95 mmHg - AV mean gradient 7.29 mmHg - LVOT diameter 2.01 cm - LVOT Vmax 1.8 m/sec - LVOT VTI 27.17 cm - LVOT peak gradient 12.91 mmHg - LVOT mean gradient 6.83 mmHg - SV LVOT 86.42 ml - ANITA (continuity Vmax) 2.7 cm2 - ANITA (continuity VTI) 3.86 cm2 - Ascending Ao 3.18 cm - Tricuspid Valve Name Value Normal Range TV E-wave Vmax 0.88 m/sec - TR Vmax 3.01 m/sec - TR peak gradient 36.27 mmHg - RAP 8 mmHg - RVSP 44 mmHg - IVC diameter 2.65 cm (1.2 - 2.3) Pulmonic Valve/Qp:Qs Name Value Normal Range PV Vmax 1.22 m/sec - PV peak gradient 5.91 mmHg - RVOT Vmax 0.87 m/sec - RVOT VTI 13.32 cm - RVOT peak gradient 3 mmHg - PV acceleration time 110.37 msec - [place]/IV: Voiding Method Indwelling Catheter IV Catheter Type [Left Forearm Peripheral IV ] IV Catheter Type [Left Wrist] INT / Saline Lock IV Catheter Type [Right Hand] INT / Saline Lock IV Catheter Type [Right INT / Saline Lock Antecubital] IV Catheter Type [Right Upper INT / Saline Lock arm] IV Catheter Type [Left Triple Lumen Cath Internal Jugular] IV Catheter Type [Left Hand] Peripheral IV IV Catheter Type [Left Peripheral IV Antecubital] Active Medications - Current Medications Current Medications: Generic Name Dose Route Start Last Admin Trade Name Freq PRN Reason Stop Dose Admin Acetaminophen 650 mg 10/05/20 16:34 10/16/20 00:13 Acetaminophen 325 Mg/10.15 Ml Oral Liqd Unit Dose FEEDTUBE 650 mg Q6H PRN Administration Non Cardiac Pain or Temp>100.5 Albuterol/Ipratropium 1 ampul 10/10/20 20:00 10/24/20 07:26 Ipratropium/Albuterol Sulfate 3 Ml Ampul.Neb IH 1 ampul Q8HRT ERINN Administration Lipase/Protease/Amylase 1 each 10/05/20 11:09 Lipase 10,500/Protease 25,000/Amylase 43,750 (Units) Dr Barakat FEEDTUBE PRN PRN For Clogged Feeding Tube Enoxaparin Sodium 40 mg 10/22/20 10:00 10/24/20 09:19 Enoxaparin 40 Mg/0.4 Ml Inj SUB-Q 40 mg DAILY ERINN Administration Protocol Famotidine 20 mg 10/07/20 10:00 10/24/20 09:18 Famotidine 20 Mg Tab PO 20 mg BID ERINN Administration Furosemide 40 mg 10/17/20 10:00 10/24/20 09:19 Furosemide 40 Mg Tab PO 40 mg QDAY ERINN Administration Glycopyrrolate 1 mg 10/20/20 10:00 10/24/20 09:19 Glycopyrrolate 1 Mg Tab PO 1 mg BID ERINN Administration Hydralazine HCl 20 mg 10/07/20 11:49 10/17/20 07:20 Hydralazine 20 Mg/1 Ml Inj IV 20 mg Q6H PRN Administration SBP >170 Hydralazine HCl 50 mg 10/17/20 09:00 10/23/20 21:58 Hydralazine 25 Mg Tab PO 50 mg Q8HR ERINN Administration Hydrophilic Ointment 1 applic 10/04/20 06:55 Lip Therapy Vaseline TP Q2HR PRN Dry Lips Dextrose 1,000 mls @ 75 mls/hr 10/13/20 11:00 10/24/20 01:35 D10w IV 75 mls/hr DIRECT ERINN Administration Cefepime HCl 2 gm in 100 mls @ 200 mls/hr 10/22/20 13:00 10/24/20 05:43 Cefepime/Ns 2 Gm/100 Ml IV 200 mls/hr Q8H ERINN Administration Protocol Metronidazole 500 mg in 100 mls @ 100 mls/hr 10/22/20 13:00 10/24/20 05:42 Flagyl 500 Mg/100 Ml IV 100 mls/hr Q8H ERINN Administration Protocol Labetalol HCl 300 mg 10/17/20 09:00 10/24/20 09:18 Labetalol 100 Mg Tab PO 300 mg TID ERINN Administration Multi-Ingred Cream/Lotion/Oil/Oint 1 applic 10/04/20 06:55 Mineral Oil/Petrolatum, White Ophth Oint 3.5 Gm OU Q4HR PRN Dry Eye(s) Simple Syrup 15 ml 10/05/20 11:09 Simple Syrup 15 Ml FEEDTUBE PRN PRN Hypoglycemia Simple Syrup 30 ml 10/05/20 11:09 Simple Syrup 15 Ml FEEDTUBE PRN PRN Hypoglycemia Sodium Bicarbonate 325 mg 10/05/20 11:09 Sodium Bicarbonate 325 Mg Tab FEEDTUBE PRN PRN For Clogged Feeding Tube Sodium Bicarbonate 1,300 mg 10/13/20 14:00 10/24/20 08:19 Sodium Bicarbonate 650 Mg Tab PO 1,300 mg TID ERINN Administration Topiramate 50 mg 10/05/20 11:00 10/24/20 09:18 Topiramate Tab 25 Mg Tab PO 50 mg Q12HR ERINN Administration Nutrition/Malnutrition Assess - Dietary Evaluation Nutrition/Malnutrition Findings: Nutrition Notes Start: 10/04/20 11:13 Freq: Status: Active Protocol: Document 10/23/20 14:10 AB (Rec: 10/23/20 14:15 AB [id number]) Co-Sign 10/23/20 14:10 MK Nutrition Notes Initial or Follow up Brief Note Current Diagnosis Acute Kidney Injury, Respiratory Failure Other Pertinent Diagnosis Cardiac arrest, s/p c-sectuion and supracervial hysterectomy Current Diet Vital AF 1.2 at 65ml/hr Subjective/Other Information F/U for TF start/rate. TF was stopped earlier today d/t CT. Per RN, TF will be restarted at goal and pt has been tolerating TF. Nutrition Intervention Follow-Up By: 10/27/20 Additional Comments F/U for TF tolerance
--- NOTE | 2020-10-24 12:07 | Progress Note ---
Assessment and Plan A: POD#22 s/p repeat section at 36 wks secondary to Eclampsia and Cardiac Arrest with Resuscitation POD#22 s/p supracervical abdominal hysterectomy secondary to Uterine Atony, Hemorrhage and Disseminated Intravascular Coagulation (DIC) s/p multiple transfusions of blood products POD #3 s/p Percutaneous Tracheostomy, Fiberoptic Bronchoscopy, PEG tube placement Right Upper Extremity superficial and deep vein thrombosis on Lovenox -Status post cardiac arrest 10/07/2020 requiring reintubation. 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 30y/o POD #22 s/p emergent section and supracervical hysterectomy for eclampsia and D IC. POD#3 s/p Percutaneous tracheostomy, Fiberoptic bronchoscopy, PEG tube placement. Currently on Lovenox for SVT and DVT in right upper extremity. Afebrile overnight. Pt remains unresponsive. Patient reports: no voiding normally (chowdhury in place ), no ambulating normally Objective - Vital Signs Latest vital signs: Vital Signs Temp Pulse Pulse Pulse Resp Resp BP 10/24/20 11:57 94 H 25 H 117/66 10/24/20 10:00 93 H 24 121/70 10/24/20 09:18 108 H 121/61 10/24/20 09:00 94 H 19 121/61 10/24/20 08:00 111 H 90 21 132/71 10/24/20 07:26 107 H 105 H 29 H 24 122/64 10/24/20 07:00 78 17 122/64 10/24/20 06:00 83 17 128/66 10/24/20 05:00 82 18 134/73 10/24/20 04:44 107 H 27 H 132/79 10/24/20 04:00 99 F 86 18 132/79 10/24/20 03:00 104 H 30 H 124/85 10/24/20 02:00 91 H 17 125/78 01/09/21 01:00 101 H 26 H 148/85 10/24/20 00:00 99.4 F 86 95 H 18 23 128/69 10/23/20 23:00 94 H 23 128/69 10/23/20 22:26 95 H 21 122/70 10/23/20 22:00 109 H 32 H 121/61 10/23/20 21:58 110 H 121/61 10/23/20 21:57 111 H 121/61 10/23/20 21:00 93 H 21 121/61 10/23/20 20:00 99.2 F 102 H 24 122/70 10/23/20 19:51 99 H 23 125/78 10/23/20 19:00 99 H 28 H 146/74 10/23/20 18:00 100 H 31 H 146/74 10/23/20 17:00 97 H 19 137/64 10/23/20 16:00 99.1 F 104 H 98 H 23 131/80 10/23/20 15:48 102 H 106 H 20 20 131/80 10/23/20 15:00 107 H 28 H 126/89 10/23/20 14:00 101 H 23 131/85 10/23/20 13:22 105 H 137/64 10/23/20 13:00 92 H 21 122/66 10/23/20 12:20 89 124/70 Pulse Ox Pulse Ox 10/24/20 11:57 100 10/24/20 10:00 99 10/24/20 09:18 10/24/20 09:00 100 10/24/20 08:00 99 10/24/20 07:26 99 100 10/24/20 07:00 100 10/24/20 06:00 100 10/24/20 05:00 100 10/24/20 04:44 99 10/24/20 04:00 99 10/24/20 03:00 99 10/24/20 02:00 98 10/24/20 01:00 99 10/24/20 00:00 100 10/23/20 23:00 99 10/23/20 22:26 99 10/23/20 22:00 99 10/23/20 21:58 10/23/20 21:57 10/23/20 21:00 99 10/23/20 20:00 99 10/23/20 19:51 99 10/23/20 19:00 98 10/23/20 18:00 99 10/23/20 17:00 99 10/23/20 16:00 99 10/23/20 15:48 99 99 10/23/20 15:00 99 10/23/20 14:00 99 10/23/20 13:22 10/23/20 13:00 99 10/23/20 12:20 100 Intake and Output 10/23/20 10/24/20 10/24/20 22:59 06:59 14:59 Intake Total 1900 750 260 Output Total 1250 550 Balance 650 200 260 Intake: IV 1100 CEFEPIME/NS 2 GM/100 ML 2 100 gm In 100 ml @ 200 mls/ hr IV Q8H ERINN Rx#: [id number] D10w 1,000 ml @ 75 mls/hr 1000 IV DIRECT ERINN Rx#: [id number] Intake, Free Water 280 230 Tube Feeding 520 520 260 Output: Urine 1250 550 Indwelling Catheter 1250 550 Other: Total, Intake Amount 65 65 65 Total, Output Amount 400 400 Voiding Method Indwelling Catheter Indwelling Catheter Indwelling Catheter - Exam Abdomen: Present: soft (obese ), other (incision well-approximating ) Extremities: Present: edema
[2020-10-24] MEDS: hydrALAZINE 25 MG TAB PO SCH ×3 (13:23→21:58)
[2020-10-25] MEDS: IPRATROPIUM/ALBUTEROL SULFATE 3 ML AMPUL.NEB IH SCH ×3 (00:17→15:03)
[2020-10-25] MEDS: CEFEPIME/NS 2 GM/100 ML 2 GM/100 ML BAG IV SCH ×3 (04:08→21:54)
[2020-10-25] MEDS: metroNIDAZOLE/NS 500 MG/100 ML 500 MG/100 ML BAG IV SCH ×3 (04:08→21:53)
[2020-10-25] MEDS: hydrALAZINE 25 MG TAB PO SCH ×3 (05:13→21:54)
[2020-10-25] MEDS: SODIUM BICARBONATE 650 MG TAB PO SCH ×3 (08:54→22:09)
--- NOTE | 2020-10-25 09:51 | Progress Note ---
Assessment and Plan A: POD#23 s/p repeat section at 36 wks secondary to Eclampsia and Cardiac Arrest with Resuscitation POD#23 s/p supracervical abdominal hysterectomy secondary to Uterine Atony, Hemorrhage and Disseminated Intravascular Coagulation (DIC) s/p multiple transfusions of blood products POD #4 s/p Percutaneous Tracheostomy, Fiberoptic Bronchoscopy, PEG tube placement Right Upper Extremity superficial and deep vein thrombosis on Lovenox -Status post cardiac arrest 10/07/2020 requiring reintubation. 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 30y/o POD #23 s/p emergent section and supracervical hysterectomy for eclampsia and DIC. POD#4 s/p Percutaneous tracheostomy, Fiberoptic bronchoscopy, PEG tube placement. Currently on Lovenox for SVT and DVT in right upper extremity. Afebrile overnight. Pt remains unresponsive. Objective - Vital Signs Latest vital signs: Vital Signs Temp Pulse Pulse Pulse Resp Resp BP 10/25/20 06:00 103 H 27 H 158/79 10/25/20 05:00 84 16 114/66 10/25/20 04:39 10/25/20 04:30 84 122/74 10/25/20 04:00 98.7 F 97 H 81 22 122/74 10/25/20 03:00 105 H 21 146/78 10/25/20 02:00 103 H 27 H 146/78 10/25/20 01:00 94 H 22 120/69 10/25/20 00:20 91 H 23 10/25/20 00:18 85 21 116/61 10/25/20 00:00 98.6 F 86 84 18 116/61 10/24/20 23:03 81 17 101/42 10/24/20 23:01 78 19 101/42 10/24/20 22:00 106 H 25 H 147/99 10/24/20 21:58 106 H 135/73 10/24/20 21:57 106 H 135/73 10/24/20 21:00 108 H 29 H 135/73 10/24/20 20:28 99 H 22 130/71 10/24/20 20:00 99.2 F 109 H 107 H 27 H 130/71 10/24/20 19:00 96 H 19 123/63 10/24/20 18:00 106 H 16 142/87 10/24/20 17:00 39 H 134/56 10/24/20 16:00 98.9 F 94 H 93 H 18 129/66 10/24/20 15:30 92 H 97 H 23 23 124/72 10/24/20 15:00 93 H 26 H 124/72 10/24/20 14:00 82 18 111/50 10/24/20 13:23 94 H 135/81 10/24/20 13:00 98 H 24 135/81 10/24/20 12:00 99.2 F 94 H 93 H 24 120/75 10/24/20 11:57 94 H 25 H 117/66 10/24/20 11:00 89 16 117/66 10/24/20 10:00 93 H 24 121/70 Pulse Ox Pulse Ox 10/25/20 06:00 98 10/25/20 05:00 97 10/25/20 04:39 98 10/25/20 04:30 98 10/25/20 04:00 98 10/25/20 03:00 99 10/25/20 02:00 99 10/25/20 01:00 99 10/25/20 00:20 10/25/20 00:18 99 10/25/20 00:00 98 10/24/20 23:03 98 10/24/20 23:01 98 10/24/20 22:00 99 10/24/20 21:58 10/24/20 21:57 10/24/20 21:00 99 10/24/20 20:28 98 10/24/20 20:00 98 10/24/20 19:00 99 10/24/20 18:00 99 10/24/20 17:00 100 10/24/20 16:00 100 10/24/20 15:30 99 100 10/24/20 15:00 100 10/24/20 14:00 100 10/24/20 13:23 10/24/20 13:00 100 10/24/20 12:00 100 10/24/20 11:57 100 10/24/20 11:00 100 10/24/20 10:00 99 Intake and Output 10/24/20 10/25/20 10/25/20 22:59 06:59 14:59 Intake Total 920 720 Output Total 650 Balance 920 70 Intake: IV 200 CEFEPIME/NS 2 GM/100 ML 2 100 gm In 100 ml @ 200 mls/ hr IV Q8H ERINN Rx#: [id number] FLAGYL 500 MG/100 ML 500 100 mg In 100 ml @ 100 mls/hr IV Q8H ERINN Rx#:[id number] Intake, Free Water 200 200 Tube Feeding 520 520 Output: Urine 650 Indwelling Catheter 650 Other: Total, Intake Amount 65 65 Total, Output Amount 650 Voiding Method Indwelling Catheter Indwelling Catheter # Bowel Movements 1 Weight 107.6 kg - Exam Narrative Exam: Intubated. Spontaneous eye opening. Unresponsive to stimuli. Breasts: Present: deferred Abdomen: Present: soft (obese ) Extremities: Present: edema
[2020-10-25] MEDS: FAMOTIDINE 20 MG TAB PO SCH ×2 (10:54→21:55)
[2020-10-25] MEDS: FUROSEMIDE 40 MG TAB PO SCH (10:55)
[2020-10-25] MEDS: GLYCOPYRROLATE 1 MG TAB PO SCH ×2 (10:55→21:55)
[2020-10-25] MEDS: ENOXAPARIN 40 MG/0.4 ML INJ SUB-Q SCH (10:55)
[2020-10-25] MEDS: TOPIRAMATE TAB 25 MG TAB PO SCH ×2 (10:55→21:54)
[2020-10-25] MEDS: DEXTROSE 10% IN WATER 1,000 ML IV SCH (10:56)
--- NOTE | 2020-10-25 11:17 | Progress Note ---
Assessment and Plan Assessment and plan: 30 year old -Cam[place] female CHE 10/25/20 at 36w5d who presents with seizures in triage on 10/02/20. Pt was not able to provide history but per pt's , she presented to the hospital to return a 24 hour urine specimen for analysis. She then suddenly reported that she did not feel good. She was taken to labor and delivery and shortly after arrival, she began seizing. During this time, a code met was called because the patient became hypoxic. She was then noted to be without a pulse. Chest compressions were started immediately, and the patient was emergently taken to the operating room for delivery of the fetus. Off note, This patient has had care at [facility] with comanagement by [facility] since 11 wks complicated by ADHD, morbid obesity, generalized anxiety disorder, panic attacks, chronic narcotic use, fibromyalgia, GERD, Irritable Bowel Syndrome, Migraines, h/o endometrial ablation and ovarian vein embolization, genital herpes, insomnia, LGA fetus, nausea and vomiting, polyhydramnios, quad screen positive for Down's Syndrome, and previous x 3. She is GBS negative. Acute respiratory failure with hypoxia Sepsis Preeclampsia Cardiac arrest DIC (disseminated intravascular coagulation) Shock ADOLPH (acute kidney injury) Acute Metabolic Encephalopathy ?Hypoxic DVT SVT in the RUE 11:30: Pt brought to L&D triage for evaluation of possible labor. Pt accompanied by her spouse. Pt spouse poor historian; unable to obtain history- allergies at this time. Pt taken from registration to triage area via WC. Pt unresponsive, actively seizing with snorous respirations. header setup operator, Kassy, called and requesting assistance. 11:35: Multiple staff at bedside. Pt 02 sat 67% on nonrebreather, unable to read BP at this time. Yifan Theodore CRNA, at bedside for intubation and assistance with IV insertion. INT attempt by multiple RNs unsuccessful at this time. 11:42: Pt being bagged by KORIN, 02% 79%. No pulse palpated, compressions started at this time; bharati young called and Dr. Newberry preparing OR for emergent c/s. 11:44: Continued compressions on stretcher while transporting pt to OR 1. Pt being bagged with jaw thrust manuever in place by KORIN Stringer student. 11:45: Arrival to OR 1. Dr. Newberry and Dr. Portillo present for emergent c/s. Code team arrived for continued care. patient revived and c/s done Patient has been bleeding from C/s site followed by supracervical hysterectomy for severe bleeding Patient transfused multiple units of PRBC, Patient in DIC. Transferred to the ICU 10/03. Patient seen and examined at bedside this morning. Patient is nonresponsive and mechanically ventilated. On pressors. Labs reviewed-has leukocytosis, anemia, thrombocytopenia, ADOLPH and lactic acidosis. Started on IV antibiotics to cover possible sepsis secondary to DIC. Hematology oncology recommendations appreciated-needs additional cryoprecipitate and FFP. Monitor D-dimer, fibrinogen and frequent labs. Nephrology consulted for lactic acidosis and ADOLPH. 10/04. Remains mechanically ventilated. Kincaid antibiotics. Labs shows improved acidosis - lactic acid 3.5. Hb drop noted. Getting transfused 2 units PRBCs. Platelet count is ~40k. Continue to monitor labs closely. Critical care team on board. 10/05; xray reviewed, concerning for multifocal infilrate, likely underlying Pneumonia, will add ID consult to assist with management of this critically ill patient, start tube feed, closely monitor renal system 10/06: Resumed care, remains on mechanical ventilation. No active bleeding, H&H stable. Continue to monitor CBC and BMP. Continue IV antibiotic for underlying pneumonia. Follow critical care and ID recommendation. 10/07: Remains on mechanical ventilation. No active bleeding, H&H stable. Critical care following, wean off ventilation as tolerated. 10/08: Patient had another cardiac arrest last night. Remains on mechanical ventilation, update family. Continue supportive care -poor prognosis 10/09: Called patient mother and discussed about patient care and management. Answered all question to best of my knowledge and family satisfaction. Patient remains on mechanical ventilation, cardiac arrest x2 so far. Critically sick, poor prognosis 10/10: remains on mechanical ventilation. h/h stable, no active bleeding. monitor CBC/BMP 10/11: WBC trended up with diarrhea, started on vancomycin po. remains on MV, off pressor, tolerating TF 10/12: remains on MV, off pressor, tolerating TF. called family for update but unable to reach, could not leave message as it was full. cont supportive care, wean off vent as tolerated. 10/13/2020; patient is on mechanical ventilation, tolerating tube feeding. Patient has labored breathing. Neuro was consulted and recommend MRI. Patient is on Precedex. Rectal tube in place. 10/14/2020; patient is on mechanical ventilation, Precedex. Patient had fever and blood culture ordered. Patient is on IV vancomycin per ID recommendation. Neuro consulted and recommend MRI. Continue to monitor. Prognosis is guarded. 10/15/2020; patient is on mechanical ventilation, Precedex. Patient had fever and blood culture ordered. Patient is on IV vancomycin per ID recommendation. Neuro consulted and recommend MRI. Continue to monitor. Prognosis is guarded. 1: Remains with C.DIFF and Bactermia, Poor prognosis. No purposeful movement. MRI and EEG discussed with Intensvisit, Continue aggressive BP control. 10/18: Blood pressure better controlled MRI done 10/15 shows mild improvement in edema. We will continue to monitor mother was at bedside yesterday. Nursing documentation trach and PEG discussed with the mother including goals of care. She is still in denial about the gravity of her daughters her condition which is understandable considering her age. Continue aggressive management at this time. Await for bacteremia to clear by ID before placing PICC line. 10/19: Patient for possible PEG and Trach, ID following, repeat cultures remain negative. Poor prognosis 10/20: Pt noted to DVT and SVT in the RUE, Vascular consult and will also obtain Hematology for possible considering changing in Anticoagulation. CONTINUE TO MONITOR H/H and PLT. Family updated by [employer]ens[employer]. Heparin gtt started. Will check CBC and BMP 10/21: Continue supporive care, Diarrhea now resolving, But still with persistent Fever, May need repeat CT/AP per ID, still with profused Encephalopathy 10/22: Continue supportive care, weaning, awaiting repeat Imaging. FOLLOW Fever curve. Enoxparin restarted 10/23: Continue supportive care, wean as tolerated. 10/24; Started on CPAP trial, discussed with pulmonary, still with diarrhea. 10/25: Patients seen and examined, no clinical changes, still with diarrhea. ?meaningful recovery. The high probability of a clinically significant, sudden or life threatening deterioration of the [MULTIPLE ORGAN] system(s) required my full and direct attention, intervention and personal management. The aggregate critical care time was [35] minutes. This time is in addition to time spent performing reported procedures but includes the following: [X] Data Review and interpretation [X] Patient assessment and monitoring of vital signs [X] Documentation [X] Medication orders and management Hospitalist Physical - Constitutional Vitals: Temp Pulse Resp BP Pulse Ox 98.7 F 105 H 22 151/80 98 10/25/20 04:00 10/25/20 08:54 10/25/20 08:12 10/25/20 08:54 10/25/20 08:12 General appearance: Present: other (Intubated, noncommunicative, does not try to respond) HEART Score - HEART Score Age: < 45 Risk factors: 1-2 risk factors - Critical Actions Critical Actions: >7 pts:50-65% risk of adverse cardiac event. Early invasive measures Results - Labs CBC & Chem 7: 10/23/20 05:34 10/23/20 05:34 Labs: Laboratory Last Values WBC 13.0 K/mm3 (4.5-11.0) H 10/23/20 05:34 RBC 3.50 M/mm3 (3.65-5.03) L 10/23/20 05:34 Hgb 10.4 gm/dl (10.1-14.3) 10/23/20 05:34 Hgb Comment See scanned result 10/04/20 Unknown Hct 30.0 % (30.3-42.9) L 10/23/20 05:34 MCV 86 fl (79-97) 10/23/20 05:34 MCH 30 pg (28-32) 10/23/20 05:34 MCHC 35 % (30-34) H 10/23/20 05:34 RDW 17.6 % (13.2-15.2) H 10/23/20 05:34 Plt Count 503 K/mm3 (140-440) H 10/23/20 05:34 Lymph % (Auto) 11.2 % (13.4-35.0) L 10/20/20 16:52 [place] % (Auto) 8.1 % (0.0-7.3) H 10/20/20 16:52 Eos % (Auto) 0.8 % (0.0-4.3) 10/20/20 16:52 Baso % (Auto) 1.1 % (0.0-1.8) 10/20/20 16:52 Lymph # (Auto) 2.1 K/mm3 (1.2-5.4) 10/20/20 16:52 [place] # (Auto) 1.5 K/mm3 (0.0-0.8) H 10/20/20 16:52 Eos # (Auto) 0.2 K/mm3 (0.0-0.4) 10/20/20 16:52 Baso # (Auto) 0.2 K/mm3 (0.0-0.1) H 10/20/20 16:52 Add Manual Diff Complete 10/15/20 05:50 Total Counted 100 10/15/20 05:50 Seg Neutrophils % 78.8 % (40.0-70.0) H 10/20/20 16:52 Seg Neuts % (Manual) 90.0 % (40.0-70.0) H 10/15/20 05:50 Band Neutrophils % 2.0 % 10/15/20 05:50 Lymphocytes % (Manual) 4.0 % (13.4-35.0) L 10/15/20 05:50 Reactive Lymphs % (Man) 1.0 % 10/02/20 12:18 Monocytes % (Manual) 4.0 % (0.0-7.3) 10/15/20 05:50 Eosinophils % (Manual) 1.0 % (0.0-4.3) 10/14/20 04:00 Myelocytes % 2.0 % 10/02/20 13:05 Metamyelocytes % 1.0 % 10/14/20 04:00 Nucleated RBC % Not Reportable 10/15/20 05:50 Seg Neutrophils # 14.8 K/mm3 (1.8-7.7) H 10/20/20 16:52 Seg Neutrophils # Man 20.9 K/mm3 (1.8-7.7) H 10/15/20 05:50 Band Neutrophils # 0.5 K/mm3 10/15/20 05:50 Lymphocytes # (Manual) 0.9 K/mm3 (1.2-5.4) L 10/15/20 05:50 Abs React Lymphs (Man) 0.0 K/mm3 10/15/20 05:50 Monocytes # (Manual) 0.9 K/mm3 (0.0-0.8) H 10/15/20 05:50 Eosinophils # (Manual) 0.0 K/mm3 (0.0-0.4) 10/15/20 05:50 Basophils # (Manual) 0.0 K/mm3 (0.0-0.1) 10/15/20 05:50 Metamyelocytes # 0.0 K/mm3 10/15/20 05:50 Myelocytes # 0.0 K/mm3 10/15/20 05:50 Promyelocytes # 0.0 K/mm3 10/15/20 05:50 Blast Cells # 0.0 K/mm3 10/15/20 05:50 WBC Morphology Not Reportable 10/15/20 05:50 Hypersegmented Neuts Not Reportable 10/15/20 05:50 Hyposegmented Neuts Not Reportable 10/15/20 05:50 Hypogranular Neuts Not Reportable 10/15/20 05:50 Smudge Cells Not Reportable 10/15/20 05:50 Toxic Granulation Not Reportable 10/15/20 05:50 Toxic Vacuolation Not Reportable 10/15/20 05:50 Dohle Bodies Not Reportable 10/15/20 05:50 Pelger-Huet Anomaly Not Reportable 10/15/20 05:50 Ester Rods Not Reportable 10/15/20 05:50 Platelet Estimate Consistent w auto 10/15/20 05:50 Clumped Platelets Not Reportable 10/15/20 05:50 Plt Clumps, EDTA Not Reportable 10/15/20 05:50 Large Platelets Not Reportable 10/15/20 05:50 Giant Platelets Not Reportable 10/15/20 05:50 Platelet Satelliting Not Reportable 10/15/20 05:50 Plt Morphology Comment Not Reportable 10/15/20 05:50 RBC Morphology Not Reportable 10/15/20 05:50 Dimorphic RBCs Not Reportable 10/15/20 05:50 Polychromasia Not Reportable 10/15/20 05:50 Hypochromasia Few 10/15/20 05:50 Poikilocytosis Not Reportable 10/15/20 05:50 Anisocytosis 1+ 10/15/20 05:50 Microcytosis Not Reportable 10/15/20 05:50 Macrocytosis Not Reportable 10/15/20 05:50 Spherocytes Not Reportable 10/15/20 05:50 Pappenheimer Bodies Not Reportable 10/15/20 05:50 Sickle Cells Not Reportable 10/15/20 05:50 Target Cells Not Reportable 10/15/20 05:50 Tear Drop Cells Not Reportable 10/15/20 05:50 Ovalocytes Not Reportable 10/15/20 05:50 Stomatocytes Few 10/14/20 04:00 Helmet Cells Not Reportable 10/15/20 05:50 Burk-Bendon Bodies Not Reportable 10/15/20 05:50 [place] Rings Not Reportable 10/15/20 05:50 [place] Cells Not Reportable 10/15/20 05:50 Bite Cells Not Reportable 10/15/20 05:50 Crenated Cell Not Reportable 10/15/20 05:50 Elliptocytes Not Reportable 10/15/20 05:50 Acanthocytes (Spur) Not Reportable 10/15/20 05:50 Rouleaux Not Reportable 10/15/20 05:50 Hemoglobin C Crystals Not Reportable 10/15/20 05:50 Schistocytes Not Reportable 10/15/20 05:50 Malaria parasites Not Reportable 10/15/20 05:50 Sickle Cell Solubility See scanned result 10/04/20 Unknown Hemoglobin A See scanned result 10/04/20 Unknown Hemoglobin A2 See scanned result 10/04/20 Unknown Hemoglobin A2 Prime See scanned result 10/04/20 Unknown Hemoglobin C See scanned result 10/04/20 Unknown Hemoglobin D See scanned result 10/04/20 Unknown Hemoglobin E See scanned result 10/04/20 Unknown Hgb F Diffential Stain See scanned result 10/04/20 Unknown Hemoglobin F Quant See scanned result 10/04/20 Unknown Hemoglobin G See scanned result 10/04/20 Unknown Hemoglobin S See scanned result 10/04/20 Unknown Hemoglobin O-[place] See scanned result 10/04/20 Unknown Hemoglobin [place] See scanned result 10/04/20 Unknown Hemoglobin Analilia See scanned result 10/04/20 Unknown Variant Hemoglobin See scanned result 10/04/20 Unknown Abnorm Hgb IEF Confirm See scanned result 10/04/20 Unknown Hemoglobin Interpret See scanned result 10/04/20 Unknown Hemoglobinopathy Note See scanned result 10/04/20 Unknown Sharad Bodies Not Reportable 10/15/20 05:50 Hem Pathologist Commnt No 10/15/20 05:50 PT 13.6 Sec. (12.2-14.9) 10/21/20 13:54 INR 1.06 (0.87-1.13) 10/21/20 13:54 APTT 31.6 Sec. (24.2-36.6) 10/03/20 00:40 Fibrinogen 336 mg/dl (211-480) 10/04/20 10:00 D-Dimer > 62866 ng/mlDDU (0-234) H 10/04/20 10:00 ABG pH 7.473 (7.320-7.450) H 10/13/20 07:18 POC ABG pCO2 20.7 mmHg (32.0-48.0) L 10/13/20 07:18 ABG pCO2 25.0 mm Hg 10/10/20 04:42 POC ABG pO2 137.9 mmHg (83-108) H 10/13/20 07:18 ABG pO2 95.2 mm Hg (80.0-90.0) H 10/10/20 04:42 POC ABG HCO3 14.8 10/13/20 07:18 ABG HCO3 20.6 mmol/L (20.0-26.0) 10/10/20 04:42 ABG O2 Saturation 97.9 % (95.0-99.0) 10/10/20 04:42 ABG O2 Content 15.4 (0.0-44) 10/10/20 04:42 POC ABG Base Excess -6.9 10/13/20 07:18 ABG Base Excess -0.8 mmol/L (-2.0-3.0) 10/10/20 04:42 ABG Hemoglobin 11.2 (12.0-17.5) L 10/13/20 07:18 ABG Oxyhemoglobin 98.3 (94-98) H 10/13/20 07:18 ABG Carboxyhemoglobin 1.4 % (0.0-5.0) 10/10/20 04:42 ABG Methemoglobin 0.3 (0.0-1.5) 10/13/20 07:18 ABG Sodium 135.9 mmol/L (136.0-145.0) L 10/13/20 07:18 ABG Potassium 3.7 mmol/L (3.40-4.50) 10/13/20 07:18 ABG Chloride 111.0 mmol/L (98-107) H 10/13/20 07:18 ABG Glucose 109 mg/dL (65-95) H 10/13/20 07:18 VBG pH 6.949 (7.320-7.420) L* 10/02/20 Unknown Oxyhemoglobin 95.9 % (95.0-99.0) 10/10/20 04:42 Carboxyhemoglobin 0.3 (0.5-1.5) L 10/13/20 07:18 FiO2 30.0 10/13/20 07:18 Sodium 135 mmol/L (137-145) L 10/23/20 05:34 Potassium 4.0 mmol/L (3.6-5.0) 10/23/20 05:34 Chloride 100.4 mmol/L (98-107) 10/23/20 05:34 Carbon Dioxide 23 mmol/L (22-30) 10/23/20 05:34 Anion Gap 16 mmol/L 10/23/20 05:34 BUN 17 mg/dL (7-17) 10/23/20 05:34 Creatinine 0.6 mg/dL (0.6-1.2) 10/23/20 05:34 Estimated GFR > 60 ml/min 10/23/20 05:34 BUN/Creatinine Ratio 28 % 10/23/20 05:34 Glucose 105 mg/dL (65-100) H 10/23/20 05:34 POC Glucose 98 mg/dL (70-105) 10/25/20 06:10 Lactic Acid 1.90 mmol/L (0.7-2.0) 10/04/20 22:00 Uric Acid 7.5 mg/dL (3.5-7.6) 10/02/20 13:05 Calcium 9.5 mg/dL (8.4-10.2) 10/23/20 05:34 Ionized Calcium 4.4 mg/dL (4.8-5.6) L 10/07/20 21:00 Phosphorus 4.00 mg/dL (2.5-4.5) 10/20/20 07:59 Magnesium 1.80 mg/dL (1.7-2.3) 10/20/20 07:59 Total Bilirubin 0.90 mg/dL (0.1-1.2) 10/10/20 04:00 AST 122 units/L (5-40) H 10/10/20 04:00 ALT 81 units/L (7-56) H 10/10/20 04:00 Alkaline Phosphatase 94 units/L (35-129) 10/10/20 04:00 Lactate Dehydrogenase 769 units/L (91-180) H 10/02/20 13:05 NT-Pro-B Natriuret Pep 2788 pg/mL (0-450) H 10/04/20 10:00 Total Protein 5.2 g/dL (6.3-8.2) L 10/10/20 04:00 Albumin 2.7 g/dL (3.9-5) L 10/10/20 04:00 Albumin/Globulin Ratio 1.1 % 10/10/20 04:00 Procalcitonin 0.58 ng/mL (<0.15) 10/11/20 15:33 Arterial Blood Glucose 109 mg/dL (65-95) H 10/13/20 07:18 Arterial Blood Ionized Calcium 4.6 mg/dL (4.6-5.3) 10/13/20 07:18 Urine Color Yellow (Yellow) 10/11/20 13:26 Urine Turbidity Clear (Clear) 10/11/20 13:26 Urine pH 7.0 (5.0-7.0) 10/11/20 13:26 Ur Specific [place] 1.014 (1.003-1.030) 10/11/20 13:26 Urine Protein 100 mg/dl mg/dL (Negative) 10/11/20 13:26 Urine Glucose (UA) Neg mg/dL (Negative) 10/11/20 13:26 Urine Ketones Neg mg/dL (Negative) 10/11/20 13:26 Urine Blood Mod (Negative) 10/11/20 13:26 Urine Nitrite Neg (Negative) 10/11/20 13:26 Urine Bilirubin Neg (Negative) 10/11/20 13:26 Urine Urobilinogen < 2.0 mg/dL (<2.0) 10/11/20 13:26 Ur Leukocyte Esterase Sm (Negative) 10/11/20 13:26 Urine WBC (Auto) 24.0 /HPF (0.0-6.0) H 10/11/20 13:26 Urine RBC (Auto) 59.0 /HPF (0.0-6.0) 10/11/20 13:26 Urine Bacteria (Auto) 1+ /HPF (Negative) 10/11/20 13:26 Urine Mucus Few /HPF 10/11/20 13:26 Vancomycin Trough 12.6 ug/mL (5.0-20.0) 10/21/20 13:54 Random Vancomycin 10.7 ug/mL (0-40.0) 10/16/20 13:09 Phenytoin 5.7 ug/mL (10.0-20.0) L 10/13/20 07:00 C. difficile Tox (PCR) Positive (Negative) 10/16/20 10:22 Coronavirus (PCR) Negative (Negative) 10/08/20 14:15 Blood Type O POSITIVE 10/02/20 12:50 Antibody Screen Negative 10/02/20 12:50 Crossmatch See Detail 10/02/20 12:50 Microbiology: Microbiology 10/14/20 14:57 Peripheral/Venous Blood Culture - Final Enterobacter Cloacae Coag Negative Staphylococcus 10/14/20 14:57 Peripheral/Venous Blood Culture - Final Enterobacter Cloacae Coag Negative Staphylococcus - Diagnostic Impressions Diagnostic Impressions: Echocardiogram 10/03/20 13:42 Transthoracic Echocardiogram Indication: S/P Cardiac Arrest R/O Cardiomyopathy BP: 133/71 Conclusions *Global left ventricular systolic function is normal. *The estimated ejection fraction is 60-65%. *There is trace of mitral regurgitation. *The right 0heart chambers are both slightly dilated. *There is mild tricuspid regurgitation. *There is mild-moderate pulmonary hypertension. *The right ventricular systolic pressure is calculated at 44 mmHg. *The study quality is technically difficult. Findings Procedure Info: The study quality is technically difficult. The study is technically limited due to patient body habitus. The study was technically limited due to the patient's inability to lay in the left lateral decubitus position. Left Ventricle: The left ventricular chamber size is normal. There is no left ventricular hypertrophy. Global left ventricular systolic function is normal. The estimated ejection fraction is 60-65%. Left Atrium: The left atrial chamber size is normal. Right Ventricle: The right ventricle is slightly dilated. Right Atrium: The right atrium is mildly dilated. Aortic Valve: The aortic valve leaflets are mildly thickened. There is no evidence of aortic regurgitation. There is no evidence of aortic stenosis. Mitral Valve: The mitral valve leaflets are mildly thickened. There is trace of mitral regurgitation. There is no evidence of mitral stenosis. Tricuspid Valve: There is mild tricuspid regurgitation. The right ventricular systolic pressure is calculated at 44 mmHg. There is evidence of mild pulmonary hypertension. Pulmonic Valve: There is trace pulmonic regurgitation. Pericardium: There is no pericardial effusion. Aorta: There is no dilatation of the ascending aorta. There is no dilatation of the aortic root. Venous: The inferior vena cava is dilated. Measurements Chambers 2D Name Value Normal Range IVSd (2D) 1 cm (0.6 - 1.1) LVPWd (2D) 1.01 cm (0.6 - 1.1) LVIDd (2D) 4.58 cm (3.7 - 5.6) LVIDs (2D) 3.17 cm (2 - 3.8) LV FS (2D) 30.93 % - EF Teichholz (2D) 58.66 % - Ao root diameter (2D) 2.94 cm (2 - 3.7) Volumes/Mass Name Value Normal Range LA ESV SP 4CH (A/L) 72.82 ml - LA ESV SP 2CH (A/L) 66.86 ml - LA ESV BP (A/L) 74.49 ml - LA ESV SP 4CH (MOD) 71.03 ml - LA ESV SP 2CH (MOD) 64.3 ml - LV EDV SP 4CH (MOD) 98.82 ml - LV ESV SP 4CH (MOD) 24.8 ml - EF SP 4CH (MOD) 74.9 % - LV EDV SP 2CH (MOD) 86.1 ml - LV ESV SP 2CH (MOD) 36.93 ml - EF SP 2CH (MOD) 57.11 % - LV EDV BP 94.4 ml - LV ESV BP 32.66 ml - BP EF (MOD) 65.4 % - Diastolic/Systolic Function Name Value Normal Range MV E-wave Vmax 1.04 m/sec - MV deceleration time 160.46 msec - MV A-wave Vmax 0.92 m/sec - MV E:A ratio 1.14 ratio - Aortic Valve Name Value Normal Range AV Vmax 2.12 m/sec - AV VTI 22.37 cm - AV peak gradient 17.95 mmHg - AV mean gradient 7.29 mmHg - LVOT diameter 2.01 cm - LVOT Vmax 1.8 m/sec - LVOT VTI 27.17 cm - LVOT peak gradient 12.91 mmHg - LVOT mean gradient 6.83 mmHg - SV LVOT 86.42 ml - ANITA (continuity Vmax) 2.7 cm2 - ANITA (continuity VTI) 3.86 cm2 - Ascending Ao 3.18 cm - Tricuspid Valve Name Value Normal Range TV E-wave Vmax 0.88 m/sec - TR Vmax 3.01 m/sec - TR peak gradient 36.27 mmHg - RAP 8 mmHg - RVSP 44 mmHg - IVC diameter 2.65 cm (1.2 - 2.3) Pulmonic Valve/Qp:Qs Name Value Normal Range PV Vmax 1.22 m/sec - PV peak gradient 5.91 mmHg - RVOT Vmax 0.87 m/sec - RVOT VTI 13.32 cm - RVOT peak gradient 3 mmHg - PV acceleration time 110.37 msec - [place]/IV: Voiding Method Indwelling Catheter IV Catheter Type [Left Forearm Peripheral IV ] IV Catheter Type [Left Wrist] INT / Saline Lock IV Catheter Type [Right Hand] INT / Saline Lock IV Catheter Type [Right INT / Saline Lock Antecubital] IV Catheter Type [Right Upper INT / Saline Lock arm] IV Catheter Type [Left Triple Lumen Cath Internal Jugular] IV Catheter Type [Left Hand] Peripheral IV IV Catheter Type [Left Peripheral IV Antecubital] Active Medications - Current Medications Current Medications: Generic Name Dose Route Start Last Admin Trade Name Freq PRN Reason Stop Dose Admin Acetaminophen 650 mg 10/05/20 16:34 10/16/20 00:13 Acetaminophen 325 Mg/10.15 Ml Oral Liqd Unit Dose FEEDTUBE 650 mg Q6H PRN Administration Non Cardiac Pain or Temp>100.5 Albuterol/Ipratropium 1 ampul 10/10/20 20:00 10/25/20 08:12 Ipratropium/Albuterol Sulfate 3 Ml Ampul.Neb IH 1 ampul Q8HRT ERINN Administration Lipase/Protease/Amylase 1 each 10/05/20 11:09 Lipase 10,500/Protease 25,000/Amylase 43,750 (Units) Dr Barakat FEEDTUBE PRN PRN For Clogged Feeding Tube Enoxaparin Sodium 40 mg 10/22/20 10:00 10/25/20 10:55 Enoxaparin 40 Mg/0.4 Ml Inj SUB-Q 40 mg DAILY ERINN Administration Protocol Famotidine 20 mg 10/07/20 10:00 10/25/20 10:54 Famotidine 20 Mg Tab PO 20 mg BID ERINN Administration Furosemide 40 mg 10/17/20 10:00 10/25/20 10:55 Furosemide 40 Mg Tab PO 40 mg QDAY ERINN Administration Glycopyrrolate 1 mg 10/20/20 10:00 10/25/20 10:55 Glycopyrrolate 1 Mg Tab PO 1 mg BID ERINN Administration Hydralazine HCl 20 mg 10/07/20 11:49 10/17/20 07:20 Hydralazine 20 Mg/1 Ml Inj IV 20 mg Q6H PRN Administration SBP >170 Hydralazine HCl 50 mg 10/17/20 09:00 10/25/20 05:13 Hydralazine 25 Mg Tab PO Not Given Q8HR ERINN Hydrophilic Ointment 1 applic 10/04/20 06:55 Lip Therapy Vaseline TP Q2HR PRN Dry Lips Dextrose 1,000 mls @ 75 mls/hr 10/13/20 11:00 10/25/20 10:56 D10w IV 75 mls/hr DIRECT ERINN Administration Cefepime HCl 2 gm in 100 mls @ 200 mls/hr 10/22/20 13:00 10/25/20 04:08 Cefepime/Ns 2 Gm/100 Ml IV 200 mls/hr Q8H ERINN Administration Protocol Metronidazole 500 mg in 100 mls @ 100 mls/hr 10/22/20 13:00 10/25/20 04:08 Flagyl 500 Mg/100 Ml IV 100 mls/hr Q8H ERINN Administration Protocol Labetalol HCl 300 mg 10/17/20 09:00 10/25/20 08:54 Labetalol 100 Mg Tab PO 300 mg TID ERINN Administration Multi-Ingred Cream/Lotion/Oil/Oint 1 applic 10/04/20 06:55 Mineral Oil/Petrolatum, White Ophth Oint 3.5 Gm OU Q4HR PRN Dry Eye(s) Simple Syrup 15 ml 10/05/20 11:09 Simple Syrup 15 Ml FEEDTUBE PRN PRN Hypoglycemia Simple Syrup 30 ml 12/21/20 11:09 Simple Syrup 15 Ml FEEDTUBE PRN PRN Hypoglycemia Sodium Bicarbonate 325 mg 10/05/20 11:09 Sodium Bicarbonate 325 Mg Tab FEEDTUBE PRN PRN For Clogged Feeding Tube Sodium Bicarbonate 1,300 mg 10/13/20 14:00 10/25/20 08:54 Sodium Bicarbonate 650 Mg Tab PO 1,300 mg TID ERINN Administration Topiramate 50 mg 10/05/20 11:00 10/25/20 10:55 Topiramate Tab 25 Mg Tab PO 50 mg Q12HR ERINN Administration Nutrition/Malnutrition Assess - Dietary Evaluation Nutrition/Malnutrition Findings: Nutrition Notes Start: 10/04/20 11:13 Freq: Status: Active Protocol: Document 10/23/20 14:10 AB (Rec: 10/23/20 14:15 AB [id number]) Co-Sign 10/23/20 14:10 MK Nutrition Notes Initial or Follow up Brief Note Current Diagnosis Acute Kidney Injury, Respiratory Failure Other Pertinent Diagnosis Cardiac arrest, s/p c-sectuion and supracervial hysterectomy Current Diet Vital AF 1.2 at 65ml/hr Subjective/Other Information F/U for TF start/rate. TF was stopped earlier today d/t CT. Per RN, TF will be restarted at goal and pt has been tolerating TF. Nutrition Intervention Follow-Up By: 10/27/20 Additional Comments F/U [id number]
--- NOTE | 2020-10-25 11:35 | Progress Note ---
Assessment and Plan - Patient Problems (1) Acute respiratory failure Current Visit: Yes Status: Acute (2) ADOLPH (acute kidney injury) Current Visit: Yes Status: Acute (3) Acute respiratory failure with hypoxia Current Visit: Yes Status: Acute (4) Cardiac arrest Current Visit: Yes Status: Acute (5) Encephalopathy Current Visit: Yes Status: Acute (6) Hypotension due to blood loss Current Visit: Yes Status: Acute (7) Preeclampsia Current Visit: Yes Status: Acute Subjective Principal diagnosis: Eclampsia/HELLP Syndrome, ADOLPH, DIC; s/p , s/p supracervical hyst Interval history: on cpap. Objective Vital Signs - 12hr 10/25/20 10/25/20 10/25/20 00:00 00:18 00:20 Temperature 98.6 F Pulse Rate 86 85 Pulse Rate [ 91 H Anterior Bilateral Throughout] Pulse Rate [ 84 From Monitor] Respiratory 18 21 Rate Respiratory 23 Rate [Anterior Bilateral Throughout] Blood Pressure 116/61 116/61 O2 Sat by Pulse 98 99 Oximetry O2 Sat by Pulse Oximetry [ Assessment] 10/25/20 10/25/20 10/25/20 01:00 02:00 03:00 Temperature Pulse Rate 94 H 103 H 105 H Pulse Rate [ Anterior Bilateral Throughout] Pulse Rate [ From Monitor] Respiratory 22 27 H 21 Rate Respiratory Rate [Anterior Bilateral Throughout] Blood Pressure 120/69 146/78 146/78 O2 Sat by Pulse 99 99 99 Oximetry O2 Sat by Pulse Oximetry [ Assessment] 10/25/20 10/25/20 10/25/20 04:00 04:30 04:39 Temperature 98.7 F Pulse Rate 97 H 84 Pulse Rate [ Anterior Bilateral Throughout] Pulse Rate [ 81 From Monitor] Respiratory 22 Rate Respiratory Rate [Anterior Bilateral Throughout] Blood Pressure 122/74 122/74 O2 Sat by Pulse 98 98 Oximetry O2 Sat by Pulse 98 Oximetry [ Assessment] 10/25/20 10/25/20 10/25/20 05:00 06:00 08:12 Temperature Pulse Rate 84 103 H 103 H Pulse Rate [ 102 H Anterior Bilateral Throughout] Pulse Rate [ From Monitor] Respiratory 16 27 H 23 Rate Respiratory 22 Rate [Anterior Bilateral Throughout] Blood Pressure 114/66 158/79 139/83 O2 Sat by Pulse 97 98 98 Oximetry O2 Sat by Pulse 98 Oximetry [ Assessment] 10/25/20 08:54 Temperature Pulse Rate 105 H Pulse Rate [ Anterior Bilateral Throughout] Pulse Rate [ From Monitor] Respiratory Rate Respiratory Rate [Anterior Bilateral Throughout] Blood Pressure 151/80 O2 Sat by Pulse Oximetry O2 Sat by Pulse Oximetry [ Assessment] Constitutional: comatose, other (critically ill on ventilator trach) Eyes: non-icteric ENT: oropharynx moist, other (orally intubated and not sedated) Neck: other (large in cirumference) Effort: normal Ascultation: Bilateral: clear, diminished breath sounds, other (coarse BS bilaterally w/ mild faint wheezes) Percussion: Bilateral: not dull Cardiovascular: regular rate and rhythm, other (no mrg) Gastrointestinal: normoactive bowel sounds, soft, other (post surgical changes with drain on the left side) Extremities: no cyanosis, pink and warm, anasarca Neurologic: other (unresponsive, not following commands, not tracking) Psychiatric: other (unable to assess) CBC and BMP: 10/23/20 05:34 10/23/20 05:34 ABG, PT/INR, D-dimer: ABG ABG pH 7.473 (7.320-7.450) H 10/13/20 07:18 POC ABG pCO2 20.7 mmHg (32.0-48.0) L 10/13/20 07:18 ABG pCO2 25.0 mm Hg 10/10/20 04:42 POC ABG pO2 137.9 mmHg (83-108) H 10/13/20 07:18 ABG pO2 95.2 mm Hg (80.0-90.0) H 10/10/20 04:42 POC ABG HCO3 14.8 10/13/20 07:18 ABG O2 Saturation 97.9 % (95.0-99.0) 10/10/20 04:42 PT/INR, D-dimer PT 13.6 Sec. (12.2-14.9) 10/21/20 13:54 INR 1.06 (0.87-1.13) 10/21/20 13:54 D-Dimer > 02815 ng/mlDDU (0-234) H 10/04/20 10:00 Abnormal lab findings: Abnormal Labs 10/02/20 10/02/20 10/02/20 12:03 12:18 12:18 WBC 14.9 H RBC Hgb 9.1 L Hct MCV MCH 22 L MCHC 28 L RDW 17.6 H Plt Count 102 L Lymph % (Auto) [place] % (Auto) Lymph # (Auto) [place] # (Auto) Baso # (Auto) Seg Neutrophils % Seg Neuts % (Manual) 36.0 L Lymphocytes % (Manual) 49.0 H Monocytes % (Manual) Nucleated RBC % 6.0 H Seg Neutrophils # Seg Neutrophils # Man Lymphocytes # (Manual) 7.3 H Monocytes # (Manual) PT INR APTT Fibrinogen D-Dimer ABG pH POC ABG pCO2 POC ABG pO2 ABG pO2 ABG HCO3 ABG Base Excess ABG Hemoglobin ABG Oxyhemoglobin ABG Sodium ABG Potassium ABG Chloride ABG Glucose VBG pH Oxyhemoglobin Carboxyhemoglobin Sodium 134 L Potassium Chloride Carbon Dioxide 12 L BUN 6 L Creatinine Glucose 390 H POC Glucose 451 H Lactic Acid Calcium Ionized Calcium Magnesium AST 135 H ALT 85 H Alkaline Phosphatase 172 H Lactate Dehydrogenase 641 H NT-Pro-B Natriuret Pep Total Protein 5.4 L Albumin 2.3 L Arterial Blood Glucose Arterial Blood Ionized Calcium Urine WBC (Auto) Vancomycin Trough Phenytoin Crossmatch 10/02/20 10/02/20 10/02/20 12:50 13:05 13:05 WBC 38.6 H RBC Hgb 8.9 L Hct 29.0 L MCV 73 L MCH 22 L MCHC RDW 17.2 H Plt Count Lymph % (Auto) [place] % (Auto) Lymph # (Auto) [place] # (Auto) Baso # (Auto) Seg Neutrophils % Seg Neuts % (Manual) Lymphocytes % (Manual) Monocytes % (Manual) Nucleated RBC % 2.0 H Seg Neutrophils # Seg Neutrophils # Man 20.1 H Lymphocytes # (Manual) 10.4 H Monocytes # (Manual) 2.3 H PT INR APTT Fibrinogen D-Dimer ABG pH POC ABG pCO2 POC ABG pO2 ABG pO2 ABG HCO3 ABG Base Excess ABG Hemoglobin ABG Oxyhemoglobin ABG Sodium ABG Potassium ABG Chloride ABG Glucose VBG pH Oxyhemoglobin Carboxyhemoglobin Sodium Potassium Chloride Carbon Dioxide BUN Creatinine Glucose POC Glucose Lactic Acid Calcium Ionized Calcium Magnesium AST 184 H ALT 113 H Alkaline Phosphatase Lactate Dehydrogenase 769 H NT-Pro-B Natriuret Pep Total Protein Albumin Arterial Blood Glucose Arterial Blood Ionized Calcium Urine WBC (Auto) Vancomycin Trough Phenytoin Crossmatch See Detail 10/02/20 10/02/20 10/02/20 16:25 16:35 16:35 WBC RBC Hgb Hct MCV MCH MCHC RDW Plt Count Lymph % (Auto) [place] % (Auto) Lymph # (Auto) [place] # (Auto) Baso # (Auto) Seg Neutrophils % Seg Neuts % (Manual) Lymphocytes % (Manual) Monocytes % (Manual) Nucleated RBC % Seg Neutrophils # Seg Neutrophils # Man Lymphocytes # (Manual) Monocytes # (Manual) PT INR APTT Fibrinogen D-Dimer ABG pH 7.031 L* POC ABG pCO2 POC ABG pO2 ABG pO2 116.8 H ABG HCO3 12.7 L ABG Base Excess -16.9 L ABG Hemoglobin 7.8 L ABG Oxyhemoglobin ABG Sodium ABG Potassium ABG Chloride ABG Glucose VBG pH Oxyhemoglobin 94.9 L Carboxyhemoglobin Sodium Potassium Chloride Carbon Dioxide BUN Creatinine Glucose 403 H POC Glucose Lactic Acid 11.40 H* Calcium 6.3 L D Ionized Calcium Magnesium AST 70 H ALT Alkaline Phosphatase Lactate Dehydrogenase NT-Pro-B Natriuret Pep Total Protein 1.9 L D Albumin 1.2 L Arterial Blood Glucose Arterial Blood Ionized Calcium Urine WBC (Auto) Vancomycin Trough Phenytoin Crossmatch 10/02/20 10/02/20 10/02/20 18:18 18:18 22:30 WBC 11.5 H RBC 2.06 L Hgb 5.5 L* D Hct 17.3 L* D MCV MCH 27 L MCHC RDW 19.5 H Plt Count 60 L Lymph % (Auto) [place] % (Auto) Lymph # (Auto) [place] # (Auto) Baso # (Auto) Seg Neutrophils % Seg Neuts % (Manual) Lymphocytes % (Manual) 8.0 L Monocytes % (Manual) 8.0 H Nucleated RBC % 8.0 H Seg Neutrophils # Seg Neutrophils # Man Lymphocytes # (Manual) 0.9 L Monocytes # (Manual) 0.9 H PT 37.1 H INR 3.71 H APTT 135.8 H* Fibrinogen D-Dimer ABG pH 7.067 L* POC ABG pCO2 POC ABG pO2 ABG pO2 183.0 H ABG HCO3 14.1 L ABG Base Excess -15.1 L ABG Hemoglobin 7.7 L ABG Oxyhemoglobin ABG Sodium ABG Potassium ABG Chloride ABG Glucose VBG pH Oxyhemoglobin Carboxyhemoglobin Sodium Potassium Chloride Carbon Dioxide BUN Creatinine Glucose POC Glucose Lactic Acid Calcium Ionized Calcium Magnesium AST ALT Alkaline Phosphatase Lactate Dehydrogenase NT-Pro-B Natriuret Pep Total Protein Albumin Arterial Blood Glucose Arterial Blood Ionized Calcium Urine WBC (Auto) Vancomycin Trough Phenytoin Crossmatch 10/02/20 10/02/20 10/03/20 Unknown Unknown 00:01 WBC RBC Hgb Hct MCV MCH MCHC RDW Plt Count Lymph % (Auto) [place] % (Auto) Lymph # (Auto) [place] # (Auto) Baso # (Auto) Seg Neutrophils % Seg Neuts % (Manual) Lymphocytes % (Manual) Monocytes % (Manual) Nucleated RBC % Seg Neutrophils # Seg Neutrophils # Man Lymphocytes # (Manual) Monocytes # (Manual) PT 61.1 H INR 6.92 H* APTT 158.7 H* Fibrinogen < 60 L* D-Dimer > 97415 H ABG pH POC ABG pCO2 POC ABG pO2 ABG pO2 ABG HCO3 ABG Base Excess ABG Hemoglobin ABG Oxyhemoglobin ABG Sodium ABG Potassium ABG Chloride ABG Glucose VBG pH 6.949 L* Oxyhemoglobin Carboxyhemoglobin Sodium Potassium Chloride Carbon Dioxide BUN Creatinine Glucose POC Glucose 196 H Lactic Acid Calcium Ionized Calcium Magnesium AST ALT Alkaline Phosphatase Lactate Dehydrogenase NT-Pro-B Natriuret Pep Total Protein Albumin Arterial Blood Glucose Arterial Blood Ionized Calcium Urine WBC (Auto) Vancomycin Trough Phenytoin Crossmatch 10/03/20 10/03/20 10/03/20 00:40 00:40 00:40 WBC RBC Hgb Hct MCV MCH MCHC RDW Plt Count Lymph % (Auto) [place] % (Auto) Lymph # (Auto) [place] # (Auto) Baso # (Auto) Seg Neutrophils % Seg Neuts % (Manual) Lymphocytes % (Manual) Monocytes % (Manual) Nucleated RBC % Seg Neutrophils # Seg Neutrophils # Man Lymphocytes # (Manual) Monocytes # (Manual) PT 15.1 H INR 1.21 H APTT Fibrinogen D-Dimer ABG pH POC ABG pCO2 POC ABG pO2 ABG pO2 ABG HCO3 ABG Base Excess ABG Hemoglobin ABG Oxyhemoglobin ABG Sodium ABG Potassium ABG Chloride ABG Glucose VBG pH Oxyhemoglobin Carboxyhemoglobin Sodium 136 L Potassium Chloride Carbon Dioxide BUN Creatinine 1.6 H D Glucose 106 H POC Glucose Lactic Acid 5.60 H* Calcium 6.5 L Ionized Calcium Magnesium AST 232 H ALT 104 H Alkaline Phosphatase Lactate Dehydrogenase NT-Pro-B Natriuret Pep Total Protein 3.9 L D Albumin 2.4 L Arterial Blood Glucose Arterial Blood Ionized Calcium Urine WBC (Auto) Vancomycin Trough Phenytoin Crossmatch 10/03/20 10/03/20 10/03/20 02:08 02:08 02:08 WBC 17.6 H RBC 3.27 L Hgb 9.9 L D Hct 29.9 L D MCV MCH MCHC RDW 16.5 H Plt Count 75 L Lymph % (Auto) [place] % (Auto) Lymph # (Auto) [place] # (Auto) Baso # (Auto) Seg Neutrophils % Seg Neuts % (Manual) 76.0 H Lymphocytes % (Manual) Monocytes % (Manual) Nucleated RBC % 8.0 H Seg Neutrophils # Seg Neutrophils # Man 13.4 H Lymphocytes # (Manual) Monocytes # (Manual) PT INR APTT Fibrinogen D-Dimer ABG pH POC ABG pCO2 POC ABG pO2 ABG pO2 ABG HCO3 ABG Base Excess ABG Hemoglobin ABG Oxyhemoglobin ABG Sodium ABG Potassium ABG Chloride ABG Glucose VBG pH Oxyhemoglobin Carboxyhemoglobin Sodium Potassium Chloride Carbon Dioxide 19 L BUN Creatinine 1.4 H Glucose 306 H POC Glucose Lactic Acid 10.50 H* Calcium 6.4 L Ionized Calcium Magnesium AST ALT Alkaline Phosphatase Lactate Dehydrogenase NT-Pro-B Natriuret Pep Total Protein Albumin Arterial Blood Glucose Arterial Blood Ionized Calcium Urine WBC (Auto) Vancomycin Trough Phenytoin Crossmatch 10/03/20 10/03/20 10/03/20 02:42 03:59 05:31 WBC RBC Hgb Hct MCV MCH MCHC RDW Plt Count Lymph % (Auto) [place] % (Auto) Lymph # (Auto) [place] # (Auto) Baso # (Auto) Seg Neutrophils % Seg Neuts % (Manual) Lymphocytes % (Manual) Monocytes % (Manual) Nucleated RBC % Seg Neutrophils # Seg Neutrophils # Man Lymphocytes # (Manual) Monocytes # (Manual) PT INR APTT Fibrinogen D-Dimer ABG pH 7.144 L POC ABG pCO2 54.4 H POC ABG pO2 ABG pO2 ABG HCO3 ABG Base Excess ABG Hemoglobin 10.0 L ABG Oxyhemoglobin ABG Sodium ABG Potassium ABG Chloride 108.0 H ABG Glucose 306 H VBG pH Oxyhemoglobin Carboxyhemoglobin Sodium Potassium Chloride Carbon Dioxide BUN Creatinine Glucose POC Glucose 209 H Lactic Acid 9.20 H* Calcium Ionized Calcium Magnesium AST ALT Alkaline Phosphatase Lactate Dehydrogenase NT-Pro-B Natriuret Pep Total Protein Albumin Arterial Blood Glucose 306 H Arterial Blood Ionized Calcium 3.7 L Urine WBC (Auto) Vancomycin Trough Phenytoin Crossmatch 10/03/20 10/03/20 10/03/20 09:00 09:00 09:00 WBC 27.4 H RBC 2.84 L Hgb 8.5 L Hct 25.1 L MCV MCH MCHC RDW 16.1 H Plt Count 72 L Lymph % (Auto) [place] % (Auto) Lymph # (Auto) [place] # (Auto) Baso # (Auto) Seg Neutrophils % Seg Neuts % (Manual) Lymphocytes % (Manual) 11.0 L Monocytes % (Manual) Nucleated RBC % 3.0 H Seg Neutrophils # Seg Neutrophils # Man 18.4 H Lymphocytes # (Manual) Monocytes # (Manual) 1.9 H PT INR APTT Fibrinogen D-Dimer ABG pH POC ABG pCO2 POC ABG pO2 ABG pO2 ABG HCO3 ABG Base Excess ABG Hemoglobin ABG Oxyhemoglobin ABG Sodium ABG Potassium ABG Chloride ABG Glucose VBG pH Oxyhemoglobin Carboxyhemoglobin Sodium Potassium Chloride Carbon Dioxide BUN Creatinine 1.7 H Glucose 216 H POC Glucose Lactic Acid 9.20 H* Calcium 6.3 L Ionized Calcium Magnesium AST 331 H ALT 171 H Alkaline Phosphatase Lactate Dehydrogenase NT-Pro-B Natriuret Pep Total Protein 3.7 L Albumin 1.9 L Arterial Blood Glucose Arterial Blood Ionized Calcium Urine WBC (Auto) Vancomycin Trough Phenytoin Crossmatch 10/03/20 10/03/20 10/03/20 11:20 11:46 11:50 WBC 28.7 H RBC 2.67 L Hgb 8.0 L Hct 23.7 L MCV MCH MCHC RDW 16.6 H Plt Count 76 L Lymph % (Auto) [place] % (Auto) Lymph # (Auto) [place] # (Auto) Baso # (Auto) Seg Neutrophils % Seg Neuts % (Manual) Lymphocytes % (Manual) Monocytes % (Manual) Nucleated RBC % Seg Neutrophils # Seg Neutrophils # Man Lymphocytes # (Manual) Monocytes # (Manual) PT INR APTT Fibrinogen D-Dimer ABG pH POC ABG pCO2 POC ABG pO2 ABG pO2 ABG HCO3 ABG Base Excess ABG Hemoglobin ABG Oxyhemoglobin ABG Sodium ABG Potassium ABG Chloride ABG Glucose VBG pH Oxyhemoglobin Carboxyhemoglobin Sodium Potassium Chloride Carbon Dioxide BUN Creatinine Glucose POC Glucose 125 H Lactic Acid 8.00 H* Calcium Ionized Calcium Magnesium AST ALT Alkaline Phosphatase Lactate Dehydrogenase NT-Pro-B Natriuret Pep Total Protein Albumin Arterial Blood Glucose Arterial Blood Ionized Calcium Urine WBC (Auto) Vancomycin Trough Phenytoin Crossmatch 10/03/20 10/04/20 10/04/20 11:50 00:40 00:40 WBC RBC Hgb 6.8 L Hct 19.4 L* MCV MCH MCHC RDW Plt Count 49 L Lymph % (Auto) [place] % (Auto) Lymph # (Auto) [place] # (Auto) Baso # (Auto) Seg Neutrophils % Seg Neuts % (Manual) Lymphocytes % (Manual) Monocytes % (Manual) Nucleated RBC % Seg Neutrophils # Seg Neutrophils # Man Lymphocytes # (Manual) Monocytes # (Manual) PT INR APTT Fibrinogen D-Dimer ABG pH 7.244 L POC ABG pCO2 POC ABG pO2 ABG pO2 ABG HCO3 ABG Base Excess -4.5 L ABG Hemoglobin 7.3 L ABG Oxyhemoglobin ABG Sodium ABG Potassium ABG Chloride ABG Glucose VBG pH Oxyhemoglobin Carboxyhemoglobin Sodium Potassium Chloride Carbon Dioxide BUN Creatinine Glucose POC Glucose Lactic Acid Calcium Ionized Calcium Magnesium AST ALT Alkaline Phosphatase Lactate Dehydrogenase NT-Pro-B Natriuret Pep Total Protein Albumin Arterial Blood Glucose Arterial Blood Ionized Calcium Urine WBC (Auto) Vancomycin Trough Phenytoin Crossmatch 10/04/20 10/04/20 10/04/20 03:53 10:00 10:00 WBC 14.6 H RBC 2.57 L Hgb 7.6 L Hct 22.5 L MCV MCH MCHC RDW 15.8 H Plt Count 38 L Lymph % (Auto) 7.7 L [place] % (Auto) Lymph # (Auto) 1.1 L [place] # (Auto) 0.9 H Baso # (Auto) Seg Neutrophils % 85.6 H Seg Neuts % (Manual) Lymphocytes % (Manual) Monocytes % (Manual) Nucleated RBC % Seg Neutrophils # 12.5 H Seg Neutrophils # Man Lymphocytes # (Manual) Monocytes # (Manual) PT INR APTT Fibrinogen D-Dimer ABG pH POC ABG pCO2 POC ABG pO2 110.6 H ABG pO2 ABG HCO3 ABG Base Excess ABG Hemoglobin 6.7 L ABG Oxyhemoglobin ABG Sodium 132.0 L ABG Potassium ABG Chloride ABG Glucose 111 H VBG pH Oxyhemoglobin Carboxyhemoglobin Sodium 134 L D Potassium Chloride 97.6 L Carbon Dioxide BUN Creatinine 1.7 H Glucose POC Glucose Lactic Acid Calcium 6.3 L Ionized Calcium Magnesium AST 203 H ALT 81 H Alkaline Phosphatase Lactate Dehydrogenase NT-Pro-B Natriuret Pep Total Protein 3.9 L Albumin 2.3 L Arterial Blood Glucose 111 H Arterial Blood Ionized Calcium 3.5 L Urine WBC (Auto) Vancomycin Trough Phenytoin Crossmatch 10/04/20 10/04/20 10/04/20 10:00 10:00 10:14 WBC RBC Hgb Hct MCV MCH MCHC RDW Plt Count Lymph % (Auto) [place] % (Auto) Lymph # (Auto) [place] # (Auto) Baso # (Auto) Seg Neutrophils % Seg Neuts % (Manual) Lymphocytes % (Manual) Monocytes % (Manual) Nucleated RBC % Seg Neutrophils # Seg Neutrophils # Man Lymphocytes # (Manual) Monocytes # (Manual) PT INR APTT Fibrinogen D-Dimer > 22451 H ABG pH POC ABG pCO2 POC ABG pO2 ABG pO2 ABG HCO3 ABG Base Excess ABG Hemoglobin ABG Oxyhemoglobin ABG Sodium ABG Potassium ABG Chloride ABG Glucose VBG pH Oxyhemoglobin Carboxyhemoglobin Sodium Potassium Chloride Carbon Dioxide BUN Creatinine Glucose POC Glucose Lactic Acid 3.90 H* Calcium Ionized Calcium Magnesium AST ALT Alkaline Phosphatase Lactate Dehydrogenase NT-Pro-B Natriuret Pep 2788 H Total Protein Albumin Arterial Blood Glucose Arterial Blood Ionized Calcium Urine WBC (Auto) Vancomycin Trough Phenytoin Crossmatch 10/04/20 10/04/20 10/04/20 14:00 14:00 18:00 WBC 15.7 H RBC 3.17 L Hgb 9.3 L 9.6 L Hct 27.2 L 28.0 L MCV MCH MCHC RDW 16.9 H Plt Count 41 L Lymph % (Auto) 8.6 L [place] % (Auto) Lymph # (Auto) [place] # (Auto) 0.9 H Baso # (Auto) Seg Neutrophils % 85.4 H Seg Neuts % (Manual) Lymphocytes % (Manual) Monocytes % (Manual) Nucleated RBC % Seg Neutrophils # 13.4 H Seg Neutrophils # Man Lymphocytes # (Manual) Monocytes # (Manual) PT INR APTT Fibrinogen D-Dimer ABG pH POC ABG pCO2 POC ABG pO2 ABG pO2 ABG HCO3 ABG Base Excess ABG Hemoglobin ABG Oxyhemoglobin ABG Sodium ABG Potassium ABG Chloride ABG Glucose VBG pH Oxyhemoglobin Carboxyhemoglobin Sodium 133 L Potassium Chloride 96.4 L Carbon Dioxide BUN 18 H Creatinine 1.7 H Glucose POC Glucose Lactic Acid Calcium 6.3 L Ionized Calcium Magnesium AST ALT Alkaline Phosphatase Lactate Dehydrogenase NT-Pro-B Natriuret Pep Total Protein Albumin Arterial Blood Glucose Arterial Blood Ionized Calcium Urine WBC (Auto) Vancomycin Trough Phenytoin Crossmatch 10/04/20 10/04/20 10/05/20 18:00 22:00 05:00 WBC 17.6 H RBC 3.34 L Hgb 9.9 L Hct 29.4 L MCV MCH MCHC RDW 17.1 H Plt Count 56 L Lymph % (Auto) 8.5 L [place] % (Auto) Lymph # (Auto) [place] # (Auto) 1.0 H Baso # (Auto) Seg Neutrophils % 85.1 H Seg Neuts % (Manual) Lymphocytes % (Manual) Monocytes % (Manual) Nucleated RBC % Seg Neutrophils # 15.0 H Seg Neutrophils # Man Lymphocytes # (Manual) Monocytes # (Manual) PT INR APTT Fibrinogen D-Dimer ABG pH POC ABG pCO2 POC ABG pO2 ABG pO2 ABG HCO3 ABG Base Excess ABG Hemoglobin ABG Oxyhemoglobin ABG Sodium ABG Potassium ABG Chloride ABG Glucose VBG pH Oxyhemoglobin Carboxyhemoglobin Sodium 136 L Potassium Chloride Carbon Dioxide BUN 18 H Creatinine 1.7 H Glucose POC Glucose Lactic Acid 2.30 H* Calcium 6.6 L Ionized Calcium Magnesium AST ALT Alkaline Phosphatase Lactate Dehydrogenase NT-Pro-B Natriuret Pep Total Protein Albumin Arterial Blood Glucose Arterial Blood Ionized Calcium Urine WBC (Auto) Vancomycin Trough Phenytoin Crossmatch 10/05/20 10/05/20 10/05/20 05:00 05:00 05:03 WBC RBC Hgb Hct MCV MCH MCHC RDW Plt Count Lymph % (Auto) [place] % (Auto) Lymph # (Auto) [place] # (Auto) Baso # (Auto) Seg Neutrophils % Seg Neuts % (Manual) Lymphocytes % (Manual) Monocytes % (Manual) Nucleated RBC % Seg Neutrophils # Seg Neutrophils # Man Lymphocytes # (Manual) Monocytes # (Manual) PT INR APTT Fibrinogen D-Dimer ABG pH 7.458 H POC ABG pCO2 POC ABG pO2 ABG pO2 74.3 L ABG HCO3 27.5 H ABG Base Excess 3.4 H ABG Hemoglobin 10.0 L ABG Oxyhemoglobin ABG Sodium ABG Potassium ABG Chloride ABG Glucose VBG pH Oxyhemoglobin 94.9 L Carboxyhemoglobin Sodium Potassium Chloride Carbon Dioxide BUN 19 H Creatinine 1.8 H Glucose POC Glucose Lactic Acid Calcium 6.8 L Ionized Calcium 3.9 L Magnesium AST 225 H ALT 85 H Alkaline Phosphatase Lactate Dehydrogenase NT-Pro-B Natriuret Pep Total Protein 4.5 L Albumin 2.7 L Arterial Blood Glucose Arterial Blood Ionized Calcium Urine WBC (Auto) Vancomycin Trough Phenytoin Crossmatch 10/05/20 10/05/20 10/05/20 10:10 15:00 19:40 WBC RBC Hgb Hct MCV MCH MCHC RDW Plt Count Lymph % (Auto) [place] % (Auto) Lymph # (Auto) [place] # (Auto) Baso # (Auto) Seg Neutrophils % Seg Neuts % (Manual) Lymphocytes % (Manual) Monocytes % (Manual) Nucleated RBC % Seg Neutrophils # Seg Neutrophils # Man Lymphocytes # (Manual) Monocytes # (Manual) PT INR APTT Fibrinogen D-Dimer ABG pH POC ABG pCO2 POC ABG pO2 ABG pO2 ABG HCO3 ABG Base Excess ABG Hemoglobin ABG Oxyhemoglobin ABG Sodium ABG Potassium ABG Chloride ABG Glucose VBG pH Oxyhemoglobin Carboxyhemoglobin Sodium Potassium 3.5 L Chloride Carbon Dioxide 31 H 32 H BUN 19 H 19 H Creatinine 1.8 H 1.8 H Glucose POC Glucose Lactic Acid Calcium 7.0 L 7.2 L Ionized Calcium Magnesium 2.90 H AST ALT Alkaline Phosphatase Lactate Dehydrogenase NT-Pro-B Natriuret Pep Total Protein Albumin Arterial Blood Glucose Arterial Blood Ionized Calcium Urine WBC (Auto) Vancomycin Trough Phenytoin Crossmatch 10/06/20 10/06/20 10/06/20 01:05 03:12 04:00 WBC 17.1 H RBC 3.47 L Hgb Hct MCV MCH MCHC RDW 17.4 H Plt Count 82 L Lymph % (Auto) 8.3 L [place] % (Auto) Lymph # (Auto) [place] # (Auto) 1.1 H Baso # (Auto) Seg Neutrophils % 83.8 H Seg Neuts % (Manual) Lymphocytes % (Manual) Monocytes % (Manual) Nucleated RBC % Seg Neutrophils # 14.3 H Seg Neutrophils # Man Lymphocytes # (Manual) Monocytes # (Manual) PT INR APTT Fibrinogen D-Dimer ABG pH 7.474 H POC ABG pCO2 POC ABG pO2 129.5 H ABG pO2 ABG HCO3 ABG Base Excess ABG Hemoglobin 11.4 L ABG Oxyhemoglobin ABG Sodium 131.8 L ABG Potassium ABG Chloride ABG Glucose 103 H VBG pH Oxyhemoglobin Carboxyhemoglobin 0.3 L Sodium Potassium Chloride Carbon Dioxide BUN Creatinine Glucose POC Glucose Lactic Acid Calcium Ionized Calcium Magnesium 3.70 H AST ALT Alkaline Phosphatase Lactate Dehydrogenase NT-Pro-B Natriuret Pep Total Protein Albumin Arterial Blood Glucose 103 H Arterial Blood Ionized Calcium 4.2 L Urine WBC (Auto) Vancomycin Trough Phenytoin Crossmatch 10/06/20 10/06/20 10/06/20 04:00 05:31 08:12 WBC RBC Hgb Hct MCV MCH MCHC RDW Plt Count Lymph % (Auto) [place] % (Auto) Lymph # (Auto) [place] # (Auto) Baso # (Auto) Seg Neutrophils % Seg Neuts % (Manual) Lymphocytes % (Manual) Monocytes % (Manual) Nucleated RBC % Seg Neutrophils # Seg Neutrophils # Man Lymphocytes # (Manual) Monocytes # (Manual) PT INR APTT Fibrinogen D-Dimer ABG pH POC ABG pCO2 POC ABG pO2 ABG pO2 ABG HCO3 ABG Base Excess ABG Hemoglobin ABG Oxyhemoglobin ABG Sodium ABG Potassium ABG Chloride ABG Glucose VBG pH Oxyhemoglobin Carboxyhemoglobin Sodium Potassium 3.5 L Chloride Carbon Dioxide BUN 19 H Creatinine 1.8 H Glucose 102 H POC Glucose 116 H Lactic Acid Calcium 7.2 L Ionized Calcium Magnesium 5.40 H AST 307 H ALT 137 H Alkaline Phosphatase Lactate Dehydrogenase NT-Pro-B Natriuret Pep Total Protein 4.5 L Albumin 2.6 L Arterial Blood Glucose Arterial Blood Ionized Calcium Urine WBC (Auto) Vancomycin Trough Phenytoin Crossmatch 10/06/20 10/06/20 10/06/20 11:00 11:50 20:13 WBC RBC Hgb Hct MCV MCH MCHC RDW Plt Count Lymph % (Auto) [place] % (Auto) Lymph # (Auto) [place] # (Auto) Baso # (Auto) Seg Neutrophils % Seg Neuts % (Manual) Lymphocytes % (Manual) Monocytes % (Manual) Nucleated RBC % Seg Neutrophils # Seg Neutrophils # Man Lymphocytes # (Manual) Monocytes # (Manual) PT INR APTT Fibrinogen D-Dimer ABG pH POC ABG pCO2 POC ABG pO2 ABG pO2 ABG HCO3 ABG Base Excess ABG Hemoglobin ABG Oxyhemoglobin ABG Sodium ABG Potassium ABG Chloride ABG Glucose VBG pH Oxyhemoglobin Carboxyhemoglobin Sodium Potassium Chloride Carbon Dioxide BUN Creatinine Glucose POC Glucose 106 H Lactic Acid Calcium Ionized Calcium Magnesium 6.50 H 6.20 H AST ALT Alkaline Phosphatase Lactate Dehydrogenase NT-Pro-B Natriuret Pep Total Protein Albumin Arterial Blood Glucose Arterial Blood Ionized Calcium Urine WBC (Auto) Vancomycin Trough Phenytoin Crossmatch 10/06/20 10/06/20 10/06/20 20:17 22:29 23:57 WBC RBC Hgb Hct MCV MCH MCHC RDW Plt Count Lymph % (Auto) Callahan % (Auto) Lymph # (Auto) [place]ahan # (Auto) Baso # (Auto) Seg Neutrophils % Seg Neuts % (Manual) Lymphocytes % (Manual) Monocytes % (Manual) Nucleated RBC % Seg Neutrophils # Seg Neutrophils # Man Lymphocytes # (Manual) Monocytes # (Manual) PT INR APTT Fibrinogen D-Dimer ABG pH POC ABG pCO2 POC ABG pO2 ABG pO2 ABG HCO3 ABG Base Excess ABG Hemoglobin ABG Oxyhemoglobin ABG Sodium ABG Potassium ABG Chloride ABG Glucose VBG pH Oxyhemoglobin Carboxyhemoglobin Sodium Potassium Chloride Carbon Dioxide BUN Creatinine Glucose POC Glucose 112 H 126 H 133 H Lactic Acid Calcium Ionized Calcium Magnesium AST ALT Alkaline Phosphatase Lactate Dehydrogenase NT-Pro-B Natriuret Pep Total Protein Albumin Arterial Blood Glucose Arterial Blood Ionized Calcium Urine WBC (Auto) Vancomycin Trough Phenytoin Crossmatch 10/07/20 10/07/20 10/07/20 00:35 02:22 03:16 WBC RBC Hgb Hct MCV MCH MCHC RDW Plt Count Lymph % (Auto) [place] % (Auto) Lymph # (Auto) [place] # (Auto) Baso # (Auto) Seg Neutrophils % Seg Neuts % (Manual) Lymphocytes % (Manual) Monocytes % (Manual) Nucleated RBC % Seg Neutrophils # Seg Neutrophils # Man Lymphocytes # (Manual) Monocytes # (Manual) PT INR APTT Fibrinogen D-Dimer ABG pH POC ABG pCO2 POC ABG pO2 ABG pO2 ABG HCO3 ABG Base Excess ABG Hemoglobin 11.6 L ABG Oxyhemoglobin ABG Sodium ABG Potassium ABG Chloride ABG Glucose 156 H VBG pH Oxyhemoglobin Carboxyhemoglobin 0.3 L Sodium Potassium Chloride Carbon Dioxide BUN Creatinine Glucose POC Glucose 124 H Lactic Acid Calcium Ionized Calcium Magnesium 5.90 H AST ALT Alkaline Phosphatase Lactate Dehydrogenase NT-Pro-B Natriuret Pep Total Protein Albumin Arterial Blood Glucose 156 H Arterial Blood Ionized Calcium 4.2 L Urine WBC (Auto) Vancomycin Trough Phenytoin Crossmatch 10/07/20 10/07/20 10/07/20 04:06 05:45 07:05 WBC 19.2 H RBC 3.57 L Hgb Hct MCV MCH MCHC 35 H RDW 17.1 H Plt Count 129 L Lymph % (Auto) [place] % (Auto) Lymph # (Auto) [place] # (Auto) Baso # (Auto) Seg Neutrophils % Seg Neuts % (Manual) 94.0 H Lymphocytes % (Manual) 6.0 L Monocytes % (Manual) Nucleated RBC % Seg Neutrophils # Seg Neutrophils # Man 18.0 H Lymphocytes # (Manual) Monocytes # (Manual) PT INR APTT Fibrinogen D-Dimer ABG pH POC ABG pCO2 POC ABG pO2 ABG pO2 ABG HCO3 ABG Base Excess ABG Hemoglobin ABG Oxyhemoglobin ABG Sodium ABG Potassium ABG Chloride ABG Glucose VBG pH Oxyhemoglobin Carboxyhemoglobin Sodium Potassium Chloride Carbon Dioxide BUN Creatinine Glucose POC Glucose 135 H 149 H Lactic Acid Calcium Ionized Calcium Magnesium AST ALT Alkaline Phosphatase Lactate Dehydrogenase NT-Pro-B Natriuret Pep Total Protein Albumin Arterial Blood Glucose Arterial Blood Ionized Calcium Urine WBC (Auto) Vancomycin Trough Phenytoin Crossmatch 10/07/20 10/07/20 10/07/20 07:05 07:05 12:21 WBC RBC Hgb Hct MCV MCH MCHC RDW Plt Count Lymph % (Auto) [place] % (Auto) Lymph # (Auto) [place] # (Auto) Baso # (Auto) Seg Neutrophils % Seg Neuts % (Manual) Lymphocytes % (Manual) Monocytes % (Manual) Nucleated RBC % Seg Neutrophils # Seg Neutrophils # Man Lymphocytes # (Manual) Monocytes # (Manual) PT INR APTT Fibrinogen D-Dimer ABG pH POC ABG pCO2 POC ABG pO2 ABG pO2 ABG HCO3 ABG Base Excess ABG Hemoglobin ABG Oxyhemoglobin ABG Sodium ABG Potassium ABG Chloride ABG Glucose VBG pH Oxyhemoglobin Carboxyhemoglobin Sodium Potassium Chloride Carbon Dioxide BUN 21 H Creatinine 1.7 H Glucose 171 H POC Glucose 124 H Lactic Acid Calcium 7.4 L Ionized Calcium Magnesium 6.10 H AST 245 H ALT 147 H Alkaline Phosphatase Lactate Dehydrogenase NT-Pro-B Natriuret Pep Total Protein 5.3 L Albumin 2.8 L Arterial Blood Glucose Arterial Blood Ionized Calcium Urine WBC (Auto) Vancomycin Trough Phenytoin Crossmatch 10/07/20 10/07/20 10/07/20 19:52 21:00 21:50 WBC RBC Hgb Hct MCV MCH MCHC RDW Plt Count Lymph % (Auto) [place] % (Auto) Lymph # (Auto) [place] # (Auto) Baso # (Auto) Seg Neutrophils % Seg Neuts % (Manual) Lymphocytes % (Manual) Monocytes % (Manual) Nucleated RBC % Seg Neutrophils # Seg Neutrophils # Man Lymphocytes # (Manual) Monocytes # (Manual) PT INR APTT Fibrinogen D-Dimer ABG pH POC ABG pCO2 POC ABG pO2 ABG pO2 ABG HCO3 ABG Base Excess ABG Hemoglobin ABG Oxyhemoglobin ABG Sodium ABG Potassium ABG Chloride ABG Glucose VBG pH Oxyhemoglobin Carboxyhemoglobin Sodium Potassium Chloride Carbon Dioxide BUN Creatinine Glucose POC Glucose 193 H 138 H Lactic Acid Calcium Ionized Calcium 4.4 L Magnesium AST ALT Alkaline Phosphatase Lactate Dehydrogenase NT-Pro-B Natriuret Pep Total Protein Albumin Arterial Blood Glucose Arterial Blood Ionized Calcium Urine WBC (Auto) Vancomycin Trough Phenytoin Crossmatch 10/07/20 10/08/20 10/08/20 23:41 04:20 05:30 WBC RBC Hgb Hct MCV MCH MCHC RDW Plt Count Lymph % (Auto) [place] % (Auto) Lymph # (Auto) [place] # (Auto) Baso # (Auto) Seg Neutrophils % Seg Neuts % (Manual) Lymphocytes % (Manual) Monocytes % (Manual) Nucleated RBC % Seg Neutrophils # Seg Neutrophils # Man Lymphocytes # (Manual) Monocytes # (Manual) PT INR APTT Fibrinogen D-Dimer ABG pH 7.467 H POC ABG pCO2 POC ABG pO2 189.8 H ABG pO2 ABG HCO3 ABG Base Excess ABG Hemoglobin 10.8 L ABG Oxyhemoglobin ABG Sodium ABG Potassium ABG Chloride ABG Glucose 133 H VBG pH Oxyhemoglobin Carboxyhemoglobin Sodium Potassium Chloride Carbon Dioxide BUN Creatinine Glucose POC Glucose 118 H 114 H Lactic Acid Calcium Ionized Calcium Magnesium AST ALT Alkaline Phosphatase Lactate Dehydrogenase NT-Pro-B Natriuret Pep Total Protein Albumin Arterial Blood Glucose 133 H Arterial Blood Ionized Calcium 4.2 L Urine WBC (Auto) Vancomycin Trough Phenytoin Crossmatch 10/08/20 10/08/20 10/08/20 05:43 06:42 06:42 WBC 23.6 H RBC 3.54 L Hgb Hct MCV MCH MCHC RDW 17.8 H Plt Count Lymph % (Auto) [place] % (Auto) Lymph # (Auto) [place] # (Auto) Baso # (Auto) Seg Neutrophils % Seg Neuts % (Manual) 93.0 H Lymphocytes % (Manual) 3.0 L Monocytes % (Manual) Nucleated RBC % 1.0 H Seg Neutrophils # Seg Neutrophils # Man 21.9 H Lymphocytes # (Manual) 0.7 L Monocytes # (Manual) 0.9 H PT INR APTT Fibrinogen D-Dimer ABG pH POC ABG pCO2 POC ABG pO2 ABG pO2 ABG HCO3 ABG Base Excess ABG Hemoglobin ABG Oxyhemoglobin ABG Sodium ABG Potassium ABG Chloride ABG Glucose VBG pH Oxyhemoglobin Carboxyhemoglobin Sodium Potassium Chloride Carbon Dioxide BUN 28 H Creatinine 1.6 H Glucose 141 H POC Glucose 126 H Lactic Acid Calcium 7.6 L Ionized Calcium Magnesium AST 162 H ALT 103 H Alkaline Phosphatase Lactate Dehydrogenase NT-Pro-B Natriuret Pep Total Protein 5.4 L Albumin 2.7 L Arterial Blood Glucose Arterial Blood Ionized Calcium Urine WBC (Auto) Vancomycin Trough Phenytoin Crossmatch 10/08/20 10/08/20 10/08/20 11:20 16:05 20:14 WBC RBC Hgb Hct MCV MCH MCHC RDW Plt Count Lymph % (Auto) [place] % (Auto) Lymph # (Auto) [place] # (Auto) Baso # (Auto) Seg Neutrophils % Seg Neuts % (Manual) Lymphocytes % (Manual) Monocytes % (Manual) Nucleated RBC % Seg Neutrophils # Seg Neutrophils # Man Lymphocytes # (Manual) Monocytes # (Manual) PT INR APTT Fibrinogen D-Dimer ABG pH POC ABG pCO2 POC ABG pO2 ABG pO2 ABG HCO3 ABG Base Excess ABG Hemoglobin ABG Oxyhemoglobin ABG Sodium ABG Potassium ABG Chloride ABG Glucose VBG pH Oxyhemoglobin Carboxyhemoglobin Sodium Potassium Chloride Carbon Dioxide BUN Creatinine Glucose POC Glucose 127 H 172 H 147 H Lactic Acid Calcium Ionized Calcium Magnesium AST ALT Alkaline Phosphatase Lactate Dehydrogenase NT-Pro-B Natriuret Pep Total Protein Albumin Arterial Blood Glucose Arterial Blood Ionized Calcium Urine WBC (Auto) Vancomycin Trough Phenytoin Crossmatch 10/08/20 10/08/20 10/09/20 21:27 23:24 02:10 WBC RBC Hgb Hct MCV MCH MCHC RDW Plt Count Lymph % (Auto) [place] % (Auto) Lymph # (Auto) [place] # (Auto) Baso # (Auto) Seg Neutrophils % Seg Neuts % (Manual) Lymphocytes % (Manual) Monocytes % (Manual) Nucleated RBC % Seg Neutrophils # Seg Neutrophils # Man Lymphocytes # (Manual) Monocytes # (Manual) PT INR APTT Fibrinogen D-Dimer ABG pH POC ABG pCO2 POC ABG pO2 ABG pO2 ABG HCO3 ABG Base Excess ABG Hemoglobin ABG Oxyhemoglobin ABG Sodium ABG Potassium ABG Chloride ABG Glucose VBG pH Oxyhemoglobin Carboxyhemoglobin Sodium Potassium Chloride Carbon Dioxide BUN Creatinine Glucose POC Glucose 140 H 135 H 111 H Lactic Acid Calcium Ionized Calcium Magnesium AST ALT Alkaline Phosphatase Lactate Dehydrogenase NT-Pro-B Natriuret Pep Total Protein Albumin Arterial Blood Glucose Arterial Blood Ionized Calcium Urine WBC (Auto) Vancomycin Trough Phenytoin Crossmatch 10/09/20 10/09/20 10/09/20 03:44 04:39 05:46 WBC 19.7 H RBC 3.51 L Hgb Hct MCV MCH MCHC RDW 17.7 H Plt Count Lymph % (Auto) [place] % (Auto) Lymph # (Auto) [place] # (Auto) Baso # (Auto) Seg Neutrophils % Seg Neuts % (Manual) 86.0 H Lymphocytes % (Manual) 4.0 L Monocytes % (Manual) 9.0 H Nucleated RBC % Seg Neutrophils # Seg Neutrophils # Man 16.9 H Lymphocytes # (Manual) 0.8 L Monocytes # (Manual) 1.8 H PT INR APTT Fibrinogen D-Dimer ABG pH 7.513 H POC ABG pCO2 POC ABG pO2 33.6 L ABG pO2 ABG HCO3 ABG Base Excess ABG Hemoglobin 11.1 L ABG Oxyhemoglobin 70.2 L ABG Sodium ABG Potassium 3.2 L ABG Chloride 108.0 H ABG Glucose 108 H VBG pH Oxyhemoglobin Carboxyhemoglobin Sodium Potassium Chloride Carbon Dioxide BUN Creatinine Glucose POC Glucose 109 H Lactic Acid Calcium Ionized Calcium Magnesium AST ALT Alkaline Phosphatase Lactate Dehydrogenase NT-Pro-B Natriuret Pep Total Protein Albumin Arterial Blood Glucose 108 H Arterial Blood Ionized Calcium 4.3 L Urine WBC (Auto) Vancomycin Trough Phenytoin Crossmatch 10/09/20 10/10/20 10/10/20 05:46 04:00 04:00 WBC 18.4 H RBC Hgb Hct MCV MCH MCHC RDW 17.5 H Plt Count Lymph % (Auto) 9.8 L [place] % (Auto) 8.8 H Lymph # (Auto) [place] # (Auto) 1.6 H Baso # (Auto) Seg Neutrophils % 80.0 H Seg Neuts % (Manual) Lymphocytes % (Manual) Monocytes % (Manual) Nucleated RBC % Seg Neutrophils # 14.7 H Seg Neutrophils # Man Lymphocytes # (Manual) Monocytes # (Manual) PT INR APTT Fibrinogen D-Dimer ABG pH POC ABG pCO2 POC ABG pO2 ABG pO2 ABG HCO3 ABG Base Excess ABG Hemoglobin ABG Oxyhemoglobin ABG Sodium ABG Potassium ABG Chloride ABG Glucose VBG pH Oxyhemoglobin Carboxyhemoglobin Sodium 146 H Potassium 3.2 L 2.9 L* Chloride 108.9 H 112.6 H Carbon Dioxide BUN 34 H 28 H Creatinine 1.4 H 1.3 H Glucose 109 H 101 H POC Glucose Lactic Acid Calcium 7.6 L 7.8 L Ionized Calcium Magnesium AST 137 H 122 H ALT 99 H 81 H Alkaline Phosphatase Lactate Dehydrogenase NT-Pro-B Natriuret Pep Total Protein 5.1 L 5.2 L Albumin 2.6 L 2.7 L Arterial Blood Glucose Arterial Blood Ionized Calcium Urine WBC (Auto) Vancomycin Trough Phenytoin Crossmatch 10/10/20 10/10/20 10/11/20 04:42 09:50 00:44 WBC RBC Hgb Hct MCV MCH MCHC RDW Plt Count Lymph % (Auto) [place] % (Auto) Lymph # (Auto) [place] # (Auto) Baso # (Auto) Seg Neutrophils % Seg Neuts % (Manual) Lymphocytes % (Manual) Monocytes % (Manual) Nucleated RBC % Seg Neutrophils # Seg Neutrophils # Man Lymphocytes # (Manual) Monocytes # (Manual) PT INR APTT Fibrinogen D-Dimer ABG pH 7.534 H POC ABG pCO2 POC ABG pO2 ABG pO2 95.2 H ABG HCO3 ABG Base Excess ABG Hemoglobin 11.3 L ABG Oxyhemoglobin ABG Sodium ABG Potassium ABG Chloride ABG Glucose VBG pH Oxyhemoglobin Carboxyhemoglobin Sodium Potassium Chloride Carbon Dioxide BUN Creatinine Glucose POC Glucose 109 H 106 H Lactic Acid Calcium Ionized Calcium Magnesium AST ALT Alkaline Phosphatase Lactate Dehydrogenase NT-Pro-B Natriuret Pep Total Protein Albumin Arterial Blood Glucose Arterial Blood Ionized Calcium Urine WBC (Auto) Vancomycin Trough Phenytoin Crossmatch 10/11/20 10/11/20 10/11/20 04:00 04:00 06:08 WBC 27.0 H RBC Hgb Hct MCV MCH MCHC RDW 17.7 H Plt Count Lymph % (Auto) 6.3 L [place] % (Auto) Lymph # (Auto) [place] # (Auto) 1.5 H Baso # (Auto) Seg Neutrophils % 87.1 H Seg Neuts % (Manual) Lymphocytes % (Manual) Monocytes % (Manual) Nucleated RBC % Seg Neutrophils # 23.5 H Seg Neutrophils # Man Lymphocytes # (Manual) Monocytes # (Manual) PT INR APTT Fibrinogen D-Dimer ABG pH POC ABG pCO2 POC ABG pO2 ABG pO2 ABG HCO3 ABG Base Excess ABG Hemoglobin ABG Oxyhemoglobin ABG Sodium ABG Potassium ABG Chloride ABG Glucose VBG pH Oxyhemoglobin Carboxyhemoglobin Sodium Potassium 3.2 L Chloride 110.4 H Carbon Dioxide 19 L BUN 22 H Creatinine Glucose 116 H POC Glucose 107 H Lactic Acid Calcium 7.7 L Ionized Calcium Magnesium 1.60 L AST ALT Alkaline Phosphatase Lactate Dehydrogenase NT-Pro-B Natriuret Pep Total Protein Albumin Arterial Blood Glucose Arterial Blood Ionized Calcium Urine WBC (Auto) Vancomycin Trough Phenytoin Crossmatch 10/11/20 10/11/20 10/12/20 11:41 13:26 03:52 WBC RBC Hgb Hct MCV MCH MCHC RDW Plt Count Lymph % (Auto) [place] % (Auto) Lymph # (Auto) [place] # (Auto) Baso # (Auto) Seg Neutrophils % Seg Neuts % (Manual) Lymphocytes % (Manual) Monocytes % (Manual) Nucleated RBC % Seg Neutrophils # Seg Neutrophils # Man Lymphocytes # (Manual) Monocytes # (Manual) PT INR APTT Fibrinogen D-Dimer ABG pH POC ABG pCO2 POC ABG pO2 ABG pO2 ABG HCO3 ABG Base Excess ABG Hemoglobin ABG Oxyhemoglobin ABG Sodium ABG Potassium ABG Chloride ABG Glucose VBG pH Oxyhemoglobin Carboxyhemoglobin Sodium Potassium Chloride Carbon Dioxide BUN Creatinine Glucose POC Glucose 116 H 114 H Lactic Acid Calcium Ionized Calcium Magnesium AST ALT Alkaline Phosphatase Lactate Dehydrogenase NT-Pro-B Natriuret Pep Total Protein Albumin Arterial Blood Glucose Arterial Blood Ionized Calcium Urine WBC (Auto) 24.0 H Vancomycin Trough Phenytoin Crossmatch 10/12/20 10/12/20 10/12/20 04:24 14:47 21:33 WBC RBC Hgb Hct MCV MCH MCHC RDW Plt Count Lymph % (Auto) [place] % (Auto) Lymph # (Auto) [place] # (Auto) Baso # (Auto) Seg Neutrophils % Seg Neuts % (Manual) Lymphocytes % (Manual) Monocytes % (Manual) Nucleated RBC % Seg Neutrophils # Seg Neutrophils # Man Lymphocytes # (Manual) Monocytes # (Manual) PT INR APTT Fibrinogen D-Dimer ABG pH POC ABG pCO2 POC ABG pO2 ABG pO2 ABG HCO3 ABG Base Excess ABG Hemoglobin ABG Oxyhemoglobin ABG Sodium ABG Potassium ABG Chloride ABG Glucose VBG pH Oxyhemoglobin Carboxyhemoglobin Sodium Potassium Chloride 109.9 H Carbon Dioxide 13 L BUN 18 H Creatinine Glucose 119 H POC Glucose 107 H Lactic Acid Calcium 7.6 L Ionized Calcium Magnesium 1.60 L AST ALT Alkaline Phosphatase Lactate Dehydrogenase NT-Pro-B Natriuret Pep Total Protein Albumin Arterial Blood Glucose Arterial Blood Ionized Calcium Urine WBC (Auto) Vancomycin Trough Phenytoin Crossmatch 10/12/20 10/12/20 10/13/20 Unknown Unknown 07:00 WBC 24.3 H RBC 3.38 L Hgb 9.8 L Hct MCV MCH MCHC RDW 18.7 H Plt Count Lymph % (Auto) [place] % (Auto) Lymph # (Auto) [place] # (Auto) Baso # (Auto) Seg Neutrophils % Seg Neuts % (Manual) 93.5 H Lymphocytes % (Manual) 4.5 L Monocytes % (Manual) Nucleated RBC % Seg Neutrophils # Seg Neutrophils # Man 22.7 H Lymphocytes # (Manual) 1.1 L Monocytes # (Manual) PT INR APTT Fibrinogen D-Dimer ABG pH POC ABG pCO2 POC ABG pO2 ABG pO2 ABG HCO3 ABG Base Excess ABG Hemoglobin ABG Oxyhemoglobin ABG Sodium ABG Potassium ABG Chloride ABG Glucose VBG pH Oxyhemoglobin Carboxyhemoglobin Sodium 135 L D Potassium 3.1 L Chloride Carbon Dioxide 17 L BUN Creatinine Glucose 510 H* POC Glucose Lactic Acid Calcium 7.2 L Ionized Calcium Magnesium AST ALT Alkaline Phosphatase Lactate Dehydrogenase NT-Pro-B Natriuret Pep Total Protein Albumin Arterial Blood Glucose Arterial Blood Ionized Calcium Urine WBC (Auto) Vancomycin Trough Phenytoin 5.7 L Crossmatch 10/13/20 10/13/20 10/13/20 07:00 07:00 07:18 WBC 23.6 H RBC 3.26 L Hgb 9.4 L Hct 28.7 L MCV MCH MCHC RDW 18.3 H Plt Count Lymph % (Auto) [place] % (Auto) Lymph # (Auto) [place] # (Auto) Baso # (Auto) Seg Neutrophils % Seg Neuts % (Manual) Lymphocytes % (Manual) Monocytes % (Manual) Nucleated RBC % Seg Neutrophils # Seg Neutrophils # Man Lymphocytes # (Manual) Monocytes # (Manual) PT INR APTT Fibrinogen D-Dimer ABG pH 7.473 H POC ABG pCO2 20.7 L POC ABG pO2 137.9 H ABG pO2 ABG HCO3 ABG Base Excess ABG Hemoglobin 11.2 L ABG Oxyhemoglobin 98.3 H ABG Sodium 135.9 L ABG Potassium ABG Chloride 111.0 H ABG Glucose 109 H VBG pH Oxyhemoglobin Carboxyhemoglobin 0.3 L Sodium 135 L Potassium 3.5 L Chloride 109.1 H Carbon Dioxide 18 L BUN Creatinine Glucose POC Glucose Lactic Acid Calcium 7.3 L Ionized Calcium Magnesium 1.60 L AST ALT Alkaline Phosphatase Lactate Dehydrogenase NT-Pro-B Natriuret Pep Total Protein Albumin Arterial Blood Glucose 109 H Arterial Blood Ionized Calcium Urine WBC (Auto) Vancomycin Trough Phenytoin Crossmatch 10/14/20 10/14/20 10/15/20 04:00 04:00 05:50 WBC 28.6 H 23.2 H RBC 3.61 L 3.43 L Hgb 9.9 L Hct 30.0 L MCV MCH MCHC RDW 18.3 H 18.2 H Plt Count Lymph % (Auto) [place] % (Auto) Lymph # (Auto) [place] # (Auto) Baso # (Auto) Seg Neutrophils % Seg Neuts % (Manual) 88.0 H 90.0 H Lymphocytes % (Manual) 5.0 L 4.0 L Monocytes % (Manual) Nucleated RBC % Seg Neutrophils # Seg Neutrophils # Man 25.2 H 20.9 H Lymphocytes # (Manual) 0.9 L Monocytes # (Manual) 1.4 H 0.9 H PT INR APTT Fibrinogen D-Dimer ABG pH POC ABG pCO2 POC ABG pO2 ABG pO2 ABG HCO3 ABG Base Excess ABG Hemoglobin ABG Oxyhemoglobin ABG Sodium ABG Potassium ABG Chloride ABG Glucose VBG pH Oxyhemoglobin Carboxyhemoglobin Sodium Potassium Chloride 109.9 H Carbon Dioxide 17 L BUN Creatinine Glucose POC Glucose Lactic Acid Calcium Ionized Calcium Magnesium AST ALT Alkaline Phosphatase Lactate Dehydrogenase NT-Pro-B Natriuret Pep Total Protein Albumin Arterial Blood Glucose Arterial Blood Ionized Calcium Urine WBC (Auto) Vancomycin Trough Phenytoin Crossmatch 10/15/20 10/16/20 10/17/20 05:50 11:57 04:57 WBC 15.2 H RBC 3.43 L Hgb Hct MCV MCH MCHC RDW 18.1 H Plt Count Lymph % (Auto) [place] % (Auto) Lymph # (Auto) [place] # (Auto) Baso # (Auto) Seg Neutrophils % Seg Neuts % (Manual) Lymphocytes % (Manual) Monocytes % (Manual) Nucleated RBC % Seg Neutrophils # Seg Neutrophils # Man Lymphocytes # (Manual) Monocytes # (Manual) PT INR APTT Fibrinogen D-Dimer ABG pH POC ABG pCO2 POC ABG pO2 ABG pO2 ABG HCO3 ABG Base Excess ABG Hemoglobin ABG Oxyhemoglobin ABG Sodium ABG Potassium ABG Chloride ABG Glucose VBG pH Oxyhemoglobin Carboxyhemoglobin Sodium Potassium Chloride 110.3 H Carbon Dioxide 18 L BUN Creatinine Glucose 105 H POC Glucose 111 H Lactic Acid Calcium 8.3 L Ionized Calcium Magnesium AST ALT Alkaline Phosphatase Lactate Dehydrogenase NT-Pro-B Natriuret Pep Total Protein Albumin Arterial Blood Glucose Arterial Blood Ionized Calcium Urine WBC (Auto) Vancomycin Trough Phenytoin Crossmatch 10/17/20 10/17/20 10/18/20 05:25 21:16 01:31 WBC RBC Hgb Hct MCV MCH MCHC RDW Plt Count Lymph % (Auto) [place] % (Auto) Lymph # (Auto) [place] # (Auto) Baso # (Auto) Seg Neutrophils % Seg Neuts % (Manual) Lymphocytes % (Manual) Monocytes % (Manual) Nucleated RBC % Seg Neutrophils # Seg Neutrophils # Man Lymphocytes # (Manual) Monocytes # (Manual) PT INR APTT Fibrinogen D-Dimer ABG pH POC ABG pCO2 POC ABG pO2 ABG pO2 ABG HCO3 ABG Base Excess ABG Hemoglobin ABG Oxyhemoglobin ABG Sodium ABG Potassium ABG Chloride ABG Glucose VBG pH Oxyhemoglobin Carboxyhemoglobin Sodium Potassium Chloride Carbon Dioxide BUN Creatinine Glucose POC Glucose 107 H 106 H 119 H Lactic Acid Calcium Ionized Calcium Magnesium AST ALT Alkaline Phosphatase Lactate Dehydrogenase NT-Pro-B Natriuret Pep Total Protein Albumin Arterial Blood Glucose Arterial Blood Ionized Calcium Urine WBC (Auto) Vancomycin Trough Phenytoin Crossmatch 10/18/20 10/18/20 10/19/20 05:45 11:23 01:14 WBC RBC Hgb Hct MCV MCH MCHC RDW Plt Count Lymph % (Auto) [place] % (Auto) Lymph # (Auto) [place] # (Auto) Baso # (Auto) Seg Neutrophils % Seg Neuts % (Manual) Lymphocytes % (Manual) Monocytes % (Manual) Nucleated RBC % Seg Neutrophils # Seg Neutrophils # Man Lymphocytes # (Manual) Monocytes # (Manual) PT INR APTT Fibrinogen D-Dimer ABG pH POC ABG pCO2 POC ABG pO2 ABG pO2 ABG HCO3 ABG Base Excess ABG Hemoglobin ABG Oxyhemoglobin ABG Sodium ABG Potassium ABG Chloride ABG Glucose VBG pH Oxyhemoglobin Carboxyhemoglobin Sodium Potassium Chloride Carbon Dioxide BUN Creatinine Glucose POC Glucose 106 H 115 H 108 H Lactic Acid Calcium Ionized Calcium Magnesium AST ALT Alkaline Phosphatase Lactate Dehydrogenase NT-Pro-B Natriuret Pep Total Protein Albumin Arterial Blood Glucose Arterial Blood Ionized Calcium Urine WBC (Auto) Vancomycin Trough Phenytoin Crossmatch 10/19/20 10/20/20 10/20/20 09:57 05:40 07:59 WBC RBC Hgb Hct MCV MCH MCHC RDW Plt Count Lymph % (Auto) [place] % (Auto) Lymph # (Auto) [place] # (Auto) Baso # (Auto) Seg Neutrophils % Seg Neuts % (Manual) Lymphocytes % (Manual) Monocytes % (Manual) Nucleated RBC % Seg Neutrophils # Seg Neutrophils # Man Lymphocytes # (Manual) Monocytes # (Manual) PT INR APTT Fibrinogen D-Dimer ABG pH POC ABG pCO2 POC ABG pO2 ABG pO2 ABG HCO3 ABG Base Excess ABG Hemoglobin ABG Oxyhemoglobin ABG Sodium ABG Potassium ABG Chloride ABG Glucose VBG pH Oxyhemoglobin Carboxyhemoglobin Sodium Potassium Chloride Carbon Dioxide BUN Creatinine Glucose 106 H POC Glucose 122 H 109 H Lactic Acid Calcium Ionized Calcium Magnesium AST ALT Alkaline Phosphatase Lactate Dehydrogenase NT-Pro-B Natriuret Pep Total Protein Albumin Arterial Blood Glucose Arterial Blood Ionized Calcium Urine WBC (Auto) Vancomycin Trough Phenytoin Crossmatch 10/20/20 10/20/20 10/21/20 16:52 16:52 13:54 WBC 18.8 H 17.0 H RBC Hgb Hct MCV MCH MCHC RDW 17.7 H 17.8 H Plt Count 547 H 544 H Lymph % (Auto) 11.2 L [place] % (Auto) 8.1 H Lymph # (Auto) [place] # (Auto) 1.5 H Baso # (Auto) 0.2 H Seg Neutrophils % 78.8 H Seg Neuts % (Manual) Lymphocytes % (Manual) Monocytes % (Manual) Nucleated RBC % Seg Neutrophils # 14.8 H Seg Neutrophils # Man Lymphocytes # (Manual) Monocytes # (Manual) PT INR APTT Fibrinogen D-Dimer ABG pH POC ABG pCO2 POC ABG pO2 ABG pO2 ABG HCO3 ABG Base Excess ABG Hemoglobin ABG Oxyhemoglobin ABG Sodium ABG Potassium ABG Chloride ABG Glucose VBG pH Oxyhemoglobin Carboxyhemoglobin Sodium Potassium Chloride Carbon Dioxide BUN Creatinine Glucose POC Glucose Lactic Acid Calcium Ionized Calcium Magnesium AST ALT Alkaline Phosphatase Lactate Dehydrogenase NT-Pro-B Natriuret Pep Total Protein Albumin Arterial Blood Glucose Arterial Blood Ionized Calcium Urine WBC (Auto) Vancomycin Trough 34.5 H Phenytoin Crossmatch 10/21/20 10/22/20 10/23/20 13:54 07:26 05:34 WBC 18.7 H 13.0 H RBC 3.64 L 3.50 L Hgb Hct 30.0 L MCV MCH MCHC 35 H RDW 17.7 H 17.6 H Plt Count 502 H 503 H Lymph % (Auto) [place] % (Auto) Lymph # (Auto) [place] # (Auto) Baso # (Auto) Seg Neutrophils % Seg Neuts % (Manual) Lymphocytes % (Manual) Monocytes % (Manual) Nucleated RBC % Seg Neutrophils # Seg Neutrophils # Man Lymphocytes # (Manual) Monocytes # (Manual) PT INR APTT Fibrinogen D-Dimer ABG pH POC ABG pCO2 POC ABG pO2 ABG pO2 ABG HCO3 ABG Base Excess ABG Hemoglobin ABG Oxyhemoglobin ABG Sodium ABG Potassium ABG Chloride ABG Glucose VBG pH Oxyhemoglobin Carboxyhemoglobin Sodium 136 L Potassium Chloride Carbon Dioxide BUN Creatinine Glucose 120 H POC Glucose Lactic Acid Calcium Ionized Calcium Magnesium AST ALT Alkaline Phosphatase Lactate Dehydrogenase NT-Pro-B Natriuret Pep Total Protein Albumin Arterial Blood Glucose Arterial Blood Ionized Calcium Urine WBC (Auto) Vancomycin Trough Phenytoin Crossmatch 10/23/20 05:34 WBC RBC Hgb Hct MCV MCH MCHC RDW Plt Count Lymph % (Auto) [place] % (Auto) Lymph # (Auto) [place] # (Auto) Baso # (Auto) Seg Neutrophils % Seg Neuts % (Manual) Lymphocytes % (Manual) Monocytes % (Manual) Nucleated RBC % Seg Neutrophils # Seg Neutrophils # Man Lymphocytes # (Manual) Monocytes # (Manual) PT INR APTT Fibrinogen D-Dimer ABG pH POC ABG pCO2 POC ABG pO2 ABG pO2 ABG HCO3 ABG Base Excess ABG Hemoglobin ABG Oxyhemoglobin ABG Sodium ABG Potassium ABG Chloride ABG Glucose VBG pH Oxyhemoglobin Carboxyhemoglobin Sodium 135 L Potassium Chloride Carbon Dioxide BUN Creatinine Glucose 105 H POC Glucose Lactic Acid Calcium Ionized Calcium Magnesium AST ALT Alkaline Phosphatase Lactate Dehydrogenase NT-Pro-B Natriuret Pep Total Protein Albumin Arterial Blood Glucose Arterial Blood Ionized Calcium Urine WBC (Auto) Vancomycin Trough Phenytoin Crossmatch
--- NOTE | 2020-10-25 13:35 | Progress Note ---
Assessment and Plan Cultures: 10/05/2020 Blood culture: no growth 10/11/2020 blood culture: No growth 10/11/2020 tracheal aspirate: Usual respiratory jaylan 10/14/2020 blood culture: Enterobacter, coag negative staph. Sensitivities in "scanned reports" 10/15/2020 blood culture: negative A/P: 30-year-old female with GERD, hypertension, seizure disorder was admitted to the hospital at 36 weeks with seizures. She became hypoxic and pulseless requiring CPR. Following emergent section, patient developed hemorrhage, DIC. She has been admitted to ICU, remains on the vent: #Fever, sepsis is likely secondary to bacteremia: ?PICC, no acute intra- abdominal source noted on CT. New PICC was placed after the most recent (negative) cultures were obtained. Repeat CT abdomen pelvis on 10/23/2020 showed surgical changes, no abscess identified. #Status post arrest 10/07/2020: Apparently had a brief code due to ?ET tube clot/plugging. #Initial shock, DIC/persistent fever: Secondary to hemorrhage, ?possible sepsis. Possible pneumonia versus fluid overload. ?Central fever v/s from VTE. Noted diarrhea ? Cdiff + #Acute kidney injury: resolved #Acute respiratory failure: remains on the vent. now has trach #Transaminitis: ?HELLP. Improving. #Preeclampsia # hemorrhage: Status post , status post supracervical hysterectomy. #Encephalopathy post cardiac arrest #C. difficile: Completed PO vancomycin Recs: -Repeat CT abdomen pelvis on 10/23/2020 showed surgical changes, no abscess identified -recheck WBC in AM, hope to stop abx soon Venancio Craven MD, FACP [facility] ([facility] O: [phone] F: [phone] Subjective Date of service: 10/25/20 Principal diagnosis: Eclampsia/HELLP Syndrome, ADOLPH, DIC; s/p , s/p supracervical hyst Interval history: Remains on the vent via trach. No fever, opens eyes, doesn't follow commands. Objective - Exam Narrative Exam: Physical Exam: Constitutional: awake, on the vent Head, Ears, Nose: Normocephalic, atraumatic. External ears, nose normal Eyes: Conjunctivae/corneas clear. No icterus. No ptosis. Neck: trach Cardiovascular: S1, S2 + Respiratory: AE fair bilaterally and equal GI: Soft, bowel sounds +. lower abdominal incision present with dressing Musculoskeletal: edematous extremities, no cyanosis. Skin: No rash or abscess Hem/Lymphatic: No palpable cervical or supraclavicular nodes. No lymphangitis Psych: no agitation Neurological: awake, doesn't follow commands, but opens eyes, exam limited - Constitutional Vitals: Vital Signs Temp Pulse Resp BP Pulse Ox 98.7 F 86 19 136/55 97 10/25/20 04:00 10/25/20 12:00 10/25/20 12:00 10/25/20 12:00 10/25/20 12:00 Temperature -Last 24 Hours Temperature 98.7 F Temperature 98.6 F Temperature 99.2 F Temperature 98.9 F - Labs CBC & Chem 7: 10/23/20 05:34 10/23/20 05:34
[2020-10-26] MEDS: IPRATROPIUM/ALBUTEROL SULFATE 3 ML AMPUL.NEB IH SCH ×2 (00:07→07:21)
[2020-10-26] MEDS: DEXTROSE 10% IN WATER 1,000 ML IV SCH (03:31)
[2020-10-26] MEDS: metroNIDAZOLE/NS 500 MG/100 ML 500 MG/100 ML BAG IV SCH ×3 (04:15→21:14)
[2020-10-26] MEDS: CEFEPIME/NS 2 GM/100 ML 2 GM/100 ML BAG IV SCH ×3 (04:15→21:14)
[2020-10-26] MEDS: hydrALAZINE 25 MG TAB PO SCH ×3 (05:01→21:14)
--- NOTE | 2020-10-26 08:21 | Progress Note ---
Assessment and Plan - Patient Problems (1) Acute respiratory failure with hypoxia Current Visit: Yes Status: Acute Plan to address problem: remains clinically stable continue supportive care currently remains intubated (2) Cardiac arrest Current Visit: Yes Status: Acute (3) DIC (disseminated intravascular coagulation) Current Visit: Yes Status: Acute (4) Encephalopathy Current Visit: Yes Status: Acute Subjective - Subjective Date of service: 10/26/20 Principal diagnosis: Eclampsia/HELLP Syndrome, ADOLPH, DIC; s/p , s/p supracervical hyst Interval history: 30y/o POD #24 s/p supracervical hysterectomy for eclampsia and DIC. Patient remains unresponsive. Continues to have improvement in leukocytosis and currently has been afebrile. Bowel movements are still diarrhea. Patient unable to illicit any response. Objective - Vital Signs Latest vital signs: Vital Signs Temp Pulse Pulse Pulse Resp Resp BP 10/26/20 08:00 109 H 25 H 142/82 10/26/20 07:58 99.6 F 111 H 108 H 25 H 10/26/20 07:21 104 H 106 H 23 24 124/79 10/26/20 07:00 89 15 124/79 10/26/20 06:00 105 H 15 129/88 10/26/20 05:06 91 H 16 10/26/20 05:01 96 H 134/79 10/26/20 04:00 99.0 F 99 H 83 21 134/79 10/26/20 03:01 89 18 134/66 10/26/20 02:00 104 H 15 138/80 10/26/20 01:00 103 H 15 134/77 10/26/20 00:11 87 23 156/72 10/26/20 00:10 89 23 10/26/20 00:00 96 H 82 21 156/72 10/25/20 23:57 99.2 F 10/25/20 23:17 80 16 156/69 10/25/20 23:00 94 H 14 156/69 10/25/20 22:00 93 H 15 141/77 10/25/20 21:54 115 H 136/79 10/25/20 21:00 95 H 25 H 136/79 10/25/20 20:52 101 H 28 H 138/81 10/25/20 20:00 98.8 F 93 H 93 H 16 138/81 10/25/20 19:00 101 H 19 146/84 10/25/20 18:00 98 H 12 144/78 10/25/20 17:00 93 H 18 142/82 10/25/20 16:00 98.7 F 102 H 102 H 17 131/41 10/25/20 15:03 100 H 24 10/25/20 15:00 98 H 24 134/81 10/25/20 14:31 94 H 134/91 10/25/20 14:00 98 H 24 143/83 10/25/20 13:00 94 H 25 H 133/80 10/25/20 12:00 99.2 F 95 H 101 H 17 136/55 10/25/20 11:55 96 H 23 143/83 10/25/20 11:00 94 H 17 135/70 10/25/20 10:00 102 H 23 151/80 10/25/20 09:00 103 H 24 157/85 10/25/20 08:54 105 H 151/80 Pulse Ox Pulse Ox 10/26/20 08:00 98 10/26/20 07:58 98 10/26/20 07:21 98 98 10/26/20 07:00 99 10/26/20 06:00 98 10/26/20 05:06 99 10/26/20 05:01 10/26/20 04:00 98 10/26/20 03:01 99 10/26/20 02:00 98 10/26/20 01:00 98 10/26/20 00:11 98 10/26/20 00:10 10/26/20 00:00 98 98 10/25/20 23:57 10/25/20 23:17 98 10/25/20 23:00 98 10/25/20 22:00 99 10/25/20 21:54 10/25/20 21:00 99 10/25/20 20:52 98 10/25/20 20:00 98 10/25/20 19:00 10/25/20 18:00 10/25/20 17:00 10/25/20 16:00 98 100 10/25/20 15:03 10/25/20 15:00 97 10/25/20 14:31 10/25/20 14:00 98 10/25/20 13:00 98 10/25/20 12:00 98 10/25/20 11:55 98 10/25/20 11:00 97 10/25/20 10:00 98 10/25/20 09:00 98 10/25/20 08:54 Intake and Output 10/25/20 10/26/20 10/26/20 22:59 06:59 14:59 Intake Total 920 1720 230 Output Total 1000 650 Balance -80 1070 230 Intake: IV 200 1000 CEFEPIME/NS 2 GM/100 ML 2 100 gm In 100 ml @ 200 mls/ hr IV Q8H ERINN Rx#: [id number] D10w 1,000 ml @ 75 mls/hr 1000 IV DIRECT ERINN Rx#: [id number] FLAGYL 500 MG/100 ML 500 100 mg In 100 ml @ 100 mls/hr IV Q8H ERINN Rx#:[id number] Intake, Free Water 200 200 100 Tube Feeding 520 520 130 Output: Urine 1000 650 Indwelling Catheter 1000 650 Other: Total, Intake Amount 65 65 65 Total, Output Amount 1150 650 Voiding Method Indwelling Catheter Indwelling Catheter Indwelling Catheter Weight 107.6 kg
--- NOTE | 2020-10-26 09:09 | Progress Note ---
Assessment and Plan Assessment and plan: 30 year old -Citizen Of [place] female CHE 10/25/20 at 36w5d who presents with seizures in triage on 10/02/20. Pt was not able to provide history but per pt's , she presented to the hospital to return a 24 hour urine specimen for analysis. She then suddenly reported that she did not feel good. She was taken to labor and delivery and shortly after arrival, she began seizing. During this time, a code met was called because the patient became hypoxic. She was then noted to be without a pulse. Chest compressions were started immediately, and the patient was emergently taken to the operating room for delivery of the fetus. Off note, This patient has had care at [facility] with comanagement by [facility] since 11 wks complicated by ADHD, morbid obesity, generalized anxiety disorder, panic attacks, chronic narcotic use, fibromyalgia, GERD, Irritable Bowel Syndrome, Migraines, h/o endometrial ablation and ovarian vein embolization, genital herpes, insomnia, LGA fetus, nausea and vomiting, polyhydramnios, quad screen positive for Down's Syndrome, and previous x 3. She is GBS negative. Acute respiratory failure with hypoxia Sepsis Preeclampsia Cardiac arrest DIC (disseminated intravascular coagulation) Shock ADOLPH (acute kidney injury) Hypertensive Urgency C.Diff Colitis Acute Metabolic Encephalopathy ?Hypoxic DVT SVT in the RUE 11:30: Pt brought to L&D triage for evaluation of possible labor. Pt accompanied by her spouse. Pt spouse poor historian; unable to obtain history- allergies at this time. Pt taken from registration to triage area via WC. Pt unresponsive, actively seizing with snorous respirations. senior lead developer, Kassy, called and requesting assistance. 11:35: Multiple staff at bedside. Pt 02 sat 67% on nonrebreather, unable to read BP at this time. Yifan Theodore CRNA, at bedside for intubation and assistance with IV insertion. INT attempt by multiple RNs unsuccessful at this time. 11:42: Pt being bagged by KORIN, 02% 79%. No pulse palpated, compressions started at this time; bharati young called and Dr. Newebrry preparing OR for emergent c/s. 11:44: Continued compressions on stretcher while transporting pt to OR 1. Pt being bagged with jaw thrust manuever in place by KORIN Stringer student. 11:45: Arrival to OR 1. Dr. Newberry and Dr. Portillo present for emergent c/s. Code team arrived for continued care. patient revived and c/s done Patient has been bleeding from C/s site followed by supracervical hysterectomy for severe bleeding Patient transfused multiple units of PRBC, Patient in DIC. Transferred to the ICU 10/03. Patient seen and examined at bedside this morning. Patient is nonresponsive and mechanically ventilated. On pressors. Labs reviewed-has leukocytosis, anemia, thrombocytopenia, ADOLPH and lactic acidosis. Started on IV antibiotics to cover possible sepsis secondary to DIC. Hematology oncology recommendations appreciated-needs additional cryoprecipitate and FFP. Monitor D-dimer, fibrinogen and frequent labs. Nephrology consulted for lactic acidosis and ADOLPH. 10/04. Remains mechanically ventilated. Kevin antibiotics. Labs shows improved acidosis - lactic acid 3.5. Hb drop noted. Getting transfused 2 units PRBCs. Platelet count is ~40k. Continue to monitor labs closely. Critical care team on board. 10/05; xray reviewed, concerning for multifocal infilrate, likely underlying Pn eumonia, will add ID consult to assist with management of this critically ill patient, start tube feed, closely monitor renal system 10/06: Resumed care, remains on mechanical ventilation. No active bleeding, H&H stable. Continue to monitor CBC and BMP. Continue IV antibiotic for underlying pneumonia. Follow critical care and ID recommendation. 10/07: Remains on mechanical ventilation. No active bleeding, H&H stable. Critical care following, wean off ventilation as tolerated. 10/08: Patient had another cardiac arrest last night. Remains on mechanical ventilation, update family. Continue supportive care -poor prognosis 10/09: Called patient mother and discussed about patient care and management. Answered all question to best of my knowledge and family satisfaction. Patient remains on mechanical ventilation, cardiac arrest x2 so far. Critically sick, poor prognosis 10/10: remains on mechanical ventilation. h/h stable, no active bleeding. monitor CBC/BMP 10/11: WBC trended up with diarrhea, started on vancomycin po. remains on MV, off pressor, tolerating TF 10/12: remains on MV, off pressor, tolerating TF. called family for update but unable to reach, could not leave message as it was full. cont supportive care, wean off vent as tolerated. 10/13/2020; patient is on mechanical ventilation, tolerating tube feeding. Patient has labored breathing. Neuro was consulted and recommend MRI. Patient is on Precedex. Rectal tube in place. 10/14/2020; patient is on mechanical ventilation, Precedex. Patient had fever and blood culture ordered. Patient is on IV vancomycin per ID recommendation. Neuro consulted and recommend MRI. Continue to monitor. Prognosis is guarded. 10/15/2020; patient is on mechanical ventilation, Precedex. Patient had fever and blood culture ordered. Patient is on IV vancomycin per ID recommendation. Neuro consulted and recommend MRI. Continue to monitor. Prognosis is guarded. 10/17: Remains with C.DIFF and Bactermia, Poor prognosis. No purposeful movement. MRI and EEG discussed with Intensvisit, Continue aggressive BP control. 10/18: Blood pressure better controlled MRI done 10/15 shows mild improvement in edema. We will continue to monitor mother was at bedside yesterday. Nursing documentation trach and PEG discussed with the mother including goals of care. She is still in denial about the gravity of her daughters her condition which is understandable considering her age. Continue aggressive management at this time. Await for bacteremia to clear by ID before placing PICC line. 10/19: Patient for possible PEG and Trach, ID following, repeat cultures remain negative. Poor prognosis 10/20: Pt noted to DVT and SVT in the RUE, Vascular consult and will also obtain Hematology for possible considering changing in Anticoagulation. CONTINUE TO MONITOR H/H and PLT. Family updated by [employer]ens[employer]. Heparin gtt started. Will check CBC and BMP 10/21: Continue supporive care, Diarrhea now resolving, But still with persistent Fever, May need repeat CT/AP per ID, still with profused Encephalopathy 10/22: Continue supportive care, weaning, awaiting repeat Imaging. FOLLOW Fever curve. Enoxparin restarted 10/23: Continue supportive care, wean as tolerated. 10/24; Started on CPAP trial, discussed with pulmonary, still with diarrhea. 10/25: Patients seen and examined, no clinical changes, still with diarrhea. ?meaningful recovery. 10/26: Clinically unchanged, continue CPAP trial, Will discuss with Neurology about re-evaluation, ?Need for repeat CT head. ?PRESS considering initial elevated BP, now stable. The high probability of a clinically significant, sudden or life threatening deterioration of the [MULTIPLE ORGAN] system(s) required my full and direct attention, intervention and personal management. The aggregate critical care time was [35] minutes. This time is in addition to time spent performing reported procedures but includes the following: [X] Data Review and interpretation [X] Patient assessment and monitoring of vital signs [X] Documentation [X] Medication orders and management History Interval history: Patient seen and examined, remains critical ill on the ventilator. She is s/p Trach and PEG. awake but not following commands, still with diarrhea. Hospitalist Physical - Physical exam Narrative exam: VITAL SIGNS: Reviewed. GENERAL: Intubated HEAD: No signs of head trauma. Opens her eyes but no purposeful movement EYES: Pupils are equal. MOUTH: clear NECK: No adenopathy, no JVD. Trach CHEST: Rales posteriorly CARDIAC: normal S1 and S2, without murmurs, gallops, or rubs. ABDOMEN: PEG, Soft, non tender and non distended. surgical wound in tact, No rebound or guarding, and no masses palpated. Bowel Sounds normal. AVINASH drain intact with bloody fluid MUSCULOSKELETAL: generalized anasacar NEUROLOGIC EXAM: Intubated SKIN: No obvious lesions - Constitutional Vitals: Temp Pulse Resp BP Pulse Ox 99.6 F 109 H 25 H 142/82 98 10/26/20 07:58 10/26/20 08:00 10/26/20 08:00 10/26/20 08:00 10/26/20 08:00 General appearance: Present: other (Intubated, noncommunicative, does not try to respond) HEART Score - HEART Score Age: < 45 Risk factors: 1-2 risk factors - Critical Actions Critical Actions: >7 pts:50-65% risk of adverse cardiac event. Early invasive measures Results - Labs CBC & Chem 7: 10/23/20 05:34 10/23/20 05:34 Labs: Laboratory Last Values WBC 13.0 K/mm3 (4.5-11.0) H 10/23/20 05:34 RBC 3.50 M/mm3 (3.65-5.03) L 10/23/20 05:34 Hgb 10.4 gm/dl (10.1-14.3) 10/23/20 05:34 Hgb Comment See scanned result 10/04/20 Unknown Hct 30.0 % (30.3-42.9) L 10/23/20 05:34 MCV 86 fl (79-97) 10/23/20 05:34 MCH 30 pg (28-32) 10/23/20 05:34 MCHC 35 % (30-34) H 10/23/20 05:34 RDW 17.6 % (13.2-15.2) H 10/23/20 05:34 Plt Count 503 K/mm3 (140-440) H 10/23/20 05:34 Lymph % (Auto) 11.2 % (13.4-35.0) L 10/20/20 16:52 [place] % (Auto) 8.1 % (0.0-7.3) H 10/20/20 16:52 Eos % (Auto) 0.8 % (0.0-4.3) 10/20/20 16:52 Baso % (Auto) 1.1 % (0.0-1.8) 10/20/20 16:52 Lymph # (Auto) 2.1 K/mm3 (1.2-5.4) 10/20/20 16:52 Hudson # (Auto) 1.5 K/mm3 (0.0-0.8) H 10/20/20 16:52 Eos # (Auto) 0.2 K/mm3 (0.0-0.4) 10/20/20 16:52 Baso # (Auto) 0.2 K/mm3 (0.0-0.1) H 10/20/20 16:52 Add Manual Diff Complete 10/15/20 05:50 Total Counted 100 10/15/20 05:50 Seg Neutrophils % 78.8 % (40.0-70.0) H 10/20/20 16:52 Seg Neuts % (Manual) 90.0 % (40.0-70.0) H 10/15/20 05:50 Band Neutrophils % 2.0 % 10/15/20 05:50 Lymphocytes % (Manual) 4.0 % (13.4-35.0) L 10/15/20 05:50 Reactive Lymphs % (Man) 1.0 % 10/02/20 12:18 Monocytes % (Manual) 4.0 % (0.0-7.3) 10/15/20 05:50 Eosinophils % (Manual) 1.0 % (0.0-4.3) 10/14/20 04:00 Myelocytes % 2.0 % 10/02/20 13:05 Metamyelocytes % 1.0 % 10/14/20 04:00 Nucleated RBC % Not Reportable 10/15/20 05:50 Seg Neutrophils # 14.8 K/mm3 (1.8-7.7) H 10/20/20 16:52 Seg Neutrophils # Man 20.9 K/mm3 (1.8-7.7) H 10/15/20 05:50 Band Neutrophils # 0.5 K/mm3 10/15/20 05:50 Lymphocytes # (Manual) 0.9 K/mm3 (1.2-5.4) L 10/15/20 05:50 Abs React Lymphs (Man) 0.0 K/mm3 10/15/20 05:50 Monocytes # (Manual) 0.9 K/mm3 (0.0-0.8) H 10/15/20 05:50 Eosinophils # (Manual) 0.0 K/mm3 (0.0-0.4) 10/15/20 05:50 Basophils # (Manual) 0.0 K/mm3 (0.0-0.1) 10/15/20 05:50 Metamyelocytes # 0.0 K/mm3 10/15/20 05:50 Myelocytes # 0.0 K/mm3 10/15/20 05:50 Promyelocytes # 0.0 K/mm3 10/15/20 05:50 Blast Cells # 0.0 K/mm3 10/15/20 05:50 WBC Morphology Not Reportable 10/15/20 05:50 Hypersegmented Neuts Not Reportable 10/15/20 05:50 Hyposegmented Neuts Not Reportable 10/15/20 05:50 Hypogranular Neuts Not Reportable 10/15/20 05:50 Smudge Cells Not Reportable 10/15/20 05:50 Toxic Granulation Not Reportable 10/15/20 05:50 Toxic Vacuolation Not Reportable 10/15/20 05:50 Dohle Bodies Not Reportable 10/15/20 05:50 Pelger-Huet Anomaly Not Reportable 10/15/20 05:50 Ester Rods Not Reportable 10/15/20 05:50 Platelet Estimate Consistent w auto 10/15/20 05:50 Clumped Platelets Not Reportable 10/15/20 05:50 Plt Clumps, EDTA Not Reportable 10/15/20 05:50 Large Platelets Not Reportable 10/15/20 05:50 Giant Platelets Not Reportable 10/15/20 05:50 Platelet Satelliting Not Reportable 10/15/20 05:50 Plt Morphology Comment Not Reportable 10/15/20 05:50 RBC Morphology Not Reportable 10/15/20 05:50 Dimorphic RBCs Not Reportable 10/15/20 05:50 Polychromasia Not Reportable 10/15/20 05:50 Hypochromasia Few 10/15/20 05:50 Poikilocytosis Not Reportable 10/15/20 05:50 Anisocytosis 1+ 10/15/20 05:50 Microcytosis Not Reportable 10/15/20 05:50 Macrocytosis Not Reportable 10/15/20 05:50 Spherocytes Not Reportable 10/15/20 05:50 Pappenheimer Bodies Not Reportable 10/15/20 05:50 Sickle Cells Not Reportable 10/15/20 05:50 Target Cells Not Reportable 10/15/20 05:50 Tear Drop Cells Not Reportable 10/15/20 05:50 Ovalocytes Not Reportable 10/15/20 05:50 Stomatocytes Few 10/14/20 04:00 Helmet Cells Not Reportable 10/15/20 05:50 Burk[place] Bodies Not Reportable 10/15/20 05:50 Friendly Rings Not Reportable 10/15/20 05:50 [place] Cells Not Reportable 10/15/20 05:50 Bite Cells Not Reportable 10/15/20 05:50 Crenated Cell Not Reportable 10/15/20 05:50 Elliptocytes Not Reportable 10/15/20 05:50 Acanthocytes (Spur) Not Reportable 10/15/20 05:50 Rouleaux Not Reportable 10/15/20 05:50 Hemoglobin C Crystals Not Reportable 10/15/20 05:50 Schistocytes Not Reportable 10/15/20 05:50 Malaria parasites Not Reportable 10/15/20 05:50 Sickle Cell Solubility See scanned result 10/04/20 Unknown Hemoglobin A See scanned result 10/04/20 Unknown Hemoglobin A2 See scanned result 10/04/20 Unknown Hemoglobin A2 Prime See scanned result 10/04/20 Unknown Hemoglobin C See scanned result 10/04/20 Unknown Hemoglobin D See scanned result 10/04/20 Unknown Hemoglobin E See scanned result 10/04/20 Unknown Hgb F Diffential Stain See scanned result 10/04/20 Unknown Hemoglobin F Quant See scanned result 10/04/20 Unknown Hemoglobin G See scanned result 10/04/20 Unknown Hemoglobin S See scanned result 10/04/20 Unknown Hemoglobin O-[place] See scanned result 10/04/20 Unknown Hemoglobin [place] See scanned result 10/04/20 Unknown Hemoglobin Analilia See scanned result 10/04/20 Unknown Variant Hemoglobin See scanned result 10/04/20 Unknown Abnorm Hgb IEF Confirm See scanned result 10/04/20 Unknown Hemoglobin Interpret See scanned result 10/04/20 Unknown Hemoglobinopathy Note See scanned result 10/04/20 Unknown Sharad Bodies Not Reportable 10/15/20 05:50 Hem Pathologist Commnt No 10/15/20 05:50 PT 13.6 Sec. (12.2-14.9) 10/21/20 13:54 INR 1.06 (0.87-1.13) 10/21/20 13:54 APTT 31.6 Sec. (24.2-36.6) 10/03/20 00:40 Fibrinogen 336 mg/dl (211-480) 10/04/20 10:00 D-Dimer > 54105 ng/mlDDU (0-234) H 10/04/20 10:00 ABG pH 7.473 (7.320-7.450) H 10/13/20 07:18 POC ABG pCO2 20.7 mmHg (32.0-48.0) L 10/13/20 07:18 ABG pCO2 25.0 mm Hg 10/10/20 04:42 POC ABG pO2 137.9 mmHg (83-108) H 10/13/20 07:18 ABG pO2 95.2 mm Hg (80.0-90.0) H 10/10/20 04:42 POC ABG HCO3 14.8 10/13/20 07:18 ABG HCO3 20.6 mmol/L (20.0-26.0) 10/10/20 04:42 ABG O2 Saturation 97.9 % (95.0-99.0) 10/10/20 04:42 ABG O2 Content 15.4 (0.0-44) 10/10/20 04:42 POC ABG Base Excess -6.9 10/13/20 07:18 ABG Base Excess -0.8 mmol/L (-2.0-3.0) 10/10/20 04:42 ABG Hemoglobin 11.2 (12.0-17.5) L 10/13/20 07:18 ABG Oxyhemoglobin 98.3 (94-98) H 10/13/20 07:18 ABG Carboxyhemoglobin 1.4 % (0.0-5.0) 10/10/20 04:42 ABG Methemoglobin 0.3 (0.0-1.5) 10/13/20 07:18 ABG Sodium 135.9 mmol/L (136.0-145.0) L 10/13/20 07:18 ABG Potassium 3.7 mmol/L (3.40-4.50) 10/13/20 07:18 ABG Chloride 111.0 mmol/L (98-107) H 10/13/20 07:18 ABG Glucose 109 mg/dL (65-95) H 10/13/20 07:18 VBG pH 6.949 (7.320-7.420) L* 10/02/20 Unknown Oxyhemoglobin 95.9 % (95.0-99.0) 10/10/20 04:42 Carboxyhemoglobin 0.3 (0.5-1.5) L 10/13/20 07:18 FiO2 30.0 10/13/20 07:18 Sodium 135 mmol/L (137-145) L 10/23/20 05:34 Potassium 4.0 mmol/L (3.6-5.0) 10/23/20 05:34 Chloride 100.4 mmol/L (98-107) 10/23/20 05:34 Carbon Dioxide 23 mmol/L (22-30) 10/23/20 05:34 Anion Gap 16 mmol/L 10/23/20 05:34 BUN 17 mg/dL (7-17) 10/23/20 05:34 Creatinine 0.6 mg/dL (0.6-1.2) 10/23/20 05:34 Estimated GFR > 60 ml/min 10/23/20 05:34 BUN/Creatinine Ratio 28 % 10/23/20 05:34 Glucose 105 mg/dL (65-100) H 10/23/20 05:34 POC Glucose 100 mg/dL (70-105) 10/26/20 05:25 Lactic Acid 1.90 mmol/L (0.7-2.0) 10/04/20 22:00 Uric Acid 7.5 mg/dL (3.5-7.6) 10/02/20 13:05 Calcium 9.5 mg/dL (8.4-10.2) 10/23/20 05:34 Ionized Calcium 4.4 mg/dL (4.8-5.6) L 10/07/20 21:00 Phosphorus 4.00 mg/dL (2.5-4.5) 10/20/20 07:59 Magnesium 1.80 mg/dL (1.7-2.3) 10/20/20 07:59 Total Bilirubin 0.90 mg/dL (0.1-1.2) 10/10/20 04:00 AST 122 units/L (5-40) H 10/10/20 04:00 ALT 81 units/L (7-56) H 10/10/20 04:00 Alkaline Phosphatase 94 units/L (35-129) 10/10/20 04:00 Lactate Dehydrogenase 769 units/L (91-180) H 10/02/20 13:05 NT-Pro-B Natriuret Pep 2788 pg/mL (0-450) H 10/04/20 10:00 Total Protein 5.2 g/dL (6.3-8.2) L 10/10/20 04:00 Albumin 2.7 g/dL (3.9-5) L 10/10/20 04:00 Albumin/Globulin Ratio 1.1 % 10/10/20 04:00 Procalcitonin 0.58 ng/mL (<0.15) 10/11/20 15:33 Arterial Blood Glucose 109 mg/dL (65-95) H 10/13/20 07:18 Arterial Blood Ionized Calcium 4.6 mg/dL (4.6-5.3) 10/13/20 07:18 Urine Color Yellow (Yellow) 10/11/20 13:26 Urine Turbidity Clear (Clear) 10/11/20 13:26 Urine pH 7.0 (5.0-7.0) 10/11/20 13:26 Ur Specific Hannah 1.014 (1.003-1.030) 10/11/20 13:26 Urine Protein 100 mg/dl mg/dL (Negative) 10/11/20 13:26 Urine Glucose (UA) Neg mg/dL (Negative) 10/11/20 13:26 Urine Ketones Neg mg/dL (Negative) 10/11/20 13:26 Urine Blood Mod (Negative) 10/11/20 13:26 Urine Nitrite Neg (Negative) 10/11/20 13:26 Urine Bilirubin Neg (Negative) 10/11/20 13:26 Urine Urobilinogen < 2.0 mg/dL (<2.0) 10/11/20 13:26 Ur Leukocyte Esterase Sm (Negative) 10/11/20 13:26 Urine WBC (Auto) 24.0 /HPF (0.0-6.0) H 10/11/20 13:26 Urine RBC (Auto) 59.0 /HPF (0.0-6.0) 10/11/20 13:26 Urine Bacteria (Auto) 1+ /HPF (Negative) 10/11/20 13:26 Urine Mucus Few /HPF 10/11/20 13:26 Vancomycin Trough 12.6 ug/mL (5.0-20.0) 10/21/20 13:54 Random Vancomycin 10.7 ug/mL (0-40.0) 10/16/20 13:09 Phenytoin 5.7 ug/mL (10.0-20.0) L 10/13/20 07:00 C. difficile Tox (PCR) Positive (Negative) 10/16/20 10:22 Coronavirus (PCR) Negative (Negative) 10/08/20 14:15 Blood Type O POSITIVE 10/02/20 12:50 Antibody Screen Negative 10/02/20 12:50 Crossmatch See Detail 10/02/20 12:50 - Diagnostic Impressions Diagnostic Impressions: Echocardiogram 10/03/20 13:42 Transthoracic Echocardiogram Indication: S/P Cardiac Arrest R/O Cardiomyopathy BP: 133/71 Conclusions *Global left ventricular systolic function is normal. *The estimated ejection fraction is 60-65%. *There is trace of mitral regurgitation. *The right 0heart chambers are both slightly dilated. *There is mild tricuspid regurgitation. *There is mild-moderate pulmonary hypertension. *The right ventricular systolic pressure is calculated at 44 mmHg. *The study quality is technically difficult. Findings Procedure Info: The study quality is technically difficult. The study is technically limited due to patient body habitus. The study was technically limited due to the patient's inability to lay in the left lateral decubitus position. Left Ventricle: The left ventricular chamber size is normal. There is no left ventricular hypertrophy. Global left ventricular systolic function is normal. The estimated ejection fraction is 60-65%. Left Atrium: The left atrial chamber size is normal. Right Ventricle: The right ventricle is slightly dilated. Right Atrium: The right atrium is mildly dilated. Aortic Valve: The aortic valve leaflets are mildly thickened. There is no evidence of aortic regurgitation. There is no evidence of aortic stenosis. Mitral Valve: The mitral valve leaflets are mildly thickened. There is trace of mitral regurgitation. There is no evidence of mitral stenosis. Tricuspid Valve: There is mild tricuspid regurgitation. The right ventricular systolic pressure is calculated at 44 mmHg. There is evidence of mild pulmonary hypertension. Pulmonic Valve: There is trace pulmonic regurgitation. Pericardium: There is no pericardial effusion. Aorta: There is no dilatation of the ascending aorta. There is no dilatation of the aortic root. Venous: The inferior vena cava is dilated. Measurements Chambers 2D Name Value Normal Range IVSd (2D) 1 cm (0.6 - 1.1) LVPWd (2D) 1.01 cm (0.6 - 1.1) LVIDd (2D) 4.58 cm (3.7 - 5.6) LVIDs (2D) 3.17 cm (2 - 3.8) LV FS (2D) 30.93 % - EF Teichholz (2D) 58.66 % - Ao root diameter (2D) 2.94 cm (2 - 3.7) Volumes/Mass Name Value Normal Range LA ESV SP 4CH (A/L) 72.82 ml - LA ESV SP 2CH (A/L) 66.86 ml - LA ESV BP (A/L) 74.49 ml - LA ESV SP 4CH (MOD) 71.03 ml - LA ESV SP 2CH (MOD) 64.3 ml - LV EDV SP 4CH (MOD) 98.82 ml - LV ESV SP 4CH (MOD) 24.8 ml - EF SP 4CH (MOD) 74.9 % - LV EDV SP 2CH (MOD) 86.1 ml - LV ESV SP 2CH (MOD) 36.93 ml - EF SP 2CH (MOD) 57.11 % - LV EDV BP 94.4 ml - LV ESV BP 32.66 ml - BP EF (MOD) 65.4 % - Diastolic/Systolic Function Name Value Normal Range MV E-wave Vmax 1.04 m/sec - MV deceleration time 160.46 msec - MV A-wave Vmax 0.92 m/sec - MV E:A ratio 1.14 ratio - Aortic Valve Name Value Normal Range AV Vmax 2.12 m/sec - AV VTI 22.37 cm - AV peak gradient 17.95 mmHg - AV mean gradient 7.29 mmHg - LVOT diameter 2.01 cm - LVOT Vmax 1.8 m/sec - LVOT VTI 27.17 cm - LVOT peak gradient 12.91 mmHg - LVOT mean gradient 6.83 mmHg - SV LVOT 86.42 ml - ANITA (continuity Vmax) 2.7 cm2 - ANITA (continuity VTI) 3.86 cm2 - Ascending Ao 3.18 cm - Tricuspid Valve Name Value Normal Range TV E-wave Vmax 0.88 m/sec - TR Vmax 3.01 m/sec - TR peak gradient 36.27 mmHg - RAP 8 mmHg - RVSP 44 mmHg - IVC diameter 2.65 cm (1.2 - 2.3) Pulmonic Valve/Qp:Qs Name Value Normal Range PV Vmax 1.22 m/sec - PV peak gradient 5.91 mmHg - RVOT Vmax 0.87 m/sec - RVOT VTI 13.32 cm - RVOT peak gradient 3 mmHg - PV acceleration time 110.37 msec - [place]/IV: Voiding Method Indwelling Catheter IV Catheter Type [Right Foot] INT / Saline Lock IV Catheter Type [Left Forearm Peripheral IV ] IV Catheter Type [Left Wrist] INT / Saline Lock IV Catheter Type [Right Hand] INT / Saline Lock IV Catheter Type [Right INT / Saline Lock Antecubital] IV Catheter Type [Right Upper INT / Saline Lock arm] IV Catheter Type [Left Triple Lumen Cath Internal Jugular] IV Catheter Type [Left Hand] Peripheral IV IV Catheter Type [Left Peripheral IV Antecubital] Active Medications - Current Medications Current Medications: Generic Name Dose Route Start Last Admin Trade Name Freq PRN Reason Stop Dose Admin Acetaminophen 650 mg 10/05/20 16:34 10/16/20 00:13 Acetaminophen 325 Mg/10.15 Ml Oral Liqd Unit Dose FEEDTUBE 650 mg Q6H PRN Administration Non Cardiac Pain or Temp>100.5 Albuterol/Ipratropium 1 ampul 10/10/20 20:00 10/26/20 07:21 Ipratropium/Albuterol Sulfate 3 Ml Ampul.Neb IH 1 ampul Q8HRT ERINN Administration Lipase/Protease/Amylase 1 each 10/05/20 11:09 Lipase 10,500/Protease 25,000/Amylase 43,750 (Units) Dr Barakat FEEDTUBE PRN PRN For Clogged Feeding Tube Enoxaparin Sodium 40 mg 10/22/20 10:00 10/25/20 10:55 Enoxaparin 40 Mg/0.4 Ml Inj SUB-Q 40 mg DAILY ERINN Administration Protocol Famotidine 20 mg 10/07/20 10:00 10/25/20 21:55 Famotidine 20 Mg Tab PO 20 mg BID ERINN Administration Furosemide 40 mg 10/17/20 10:00 10/25/20 10:55 Furosemide 40 Mg Tab PO 40 mg QDAY ERINN Administration Glycopyrrolate 1 mg 10/20/20 10:00 10/25/20 21:55 Glycopyrrolate 1 Mg Tab PO 1 mg BID ERINN Administration Hydralazine HCl 20 mg 10/07/20 11:49 10/17/20 07:20 Hydralazine 20 Mg/1 Ml Inj IV 20 mg Q6H PRN Administration SBP >170 Hydralazine HCl 50 mg 10/17/20 09:00 10/26/20 05:01 Hydralazine 25 Mg Tab PO 50 mg Q8HR ERINN Administration Hydrophilic Ointment 1 applic 10/04/20 06:55 Lip Therapy Vaseline TP Q2HR PRN Dry Lips Dextrose 1,000 mls @ 75 mls/hr 10/13/20 11:00 10/26/20 03:31 D10w IV 75 mls/hr DIRECT ERINN Administration Cefepime HCl 2 gm in 100 mls @ 200 mls/hr 10/22/20 13:00 10/26/20 04:15 Cefepime/Ns 2 Gm/100 Ml IV 200 mls/hr Q8H ERINN Administration Protocol Metronidazole 500 mg in 100 mls @ 100 mls/hr 10/22/20 13:00 10/26/20 04:15 Flagyl 500 Mg/100 Ml IV 100 mls/hr Q8H ERINN Administration Protocol Labetalol HCl 300 mg 10/17/20 09:00 10/25/20 21:54 Labetalol 100 Mg Tab PO 300 mg TID ERINN Administration Multi-Ingred Cream/Lotion/Oil/Oint 1 applic 10/04/20 06:55 Mineral Oil/Petrolatum, White Ophth Oint 3.5 Gm OU Q4HR PRN Dry Eye(s) Simple Syrup 15 ml 10/05/20 11:09 Simple Syrup 15 Ml FEEDTUBE PRN PRN Hypoglycemia Simple Syrup 30 ml 10/05/20 11:09 Simple Syrup 15 Ml FEEDTUBE PRN PRN Hypoglycemia Sodium Bicarbonate 325 mg 10/05/20 11:09 Sodium Bicarbonate 325 Mg Tab FEEDTUBE PRN PRN For Clogged Feeding Tube Sodium Bicarbonate 1,300 mg 10/13/20 14:00 10/25/20 22:09 Sodium Bicarbonate 650 Mg Tab PO 1,300 mg TID ERINN Administration Topiramate 50 mg 10/05/20 11:00 10/25/20 21:54 Topiramate Tab 25 Mg Tab PO 50 mg Q12HR ERINN Administration Nutrition/Malnutrition Assess - Dietary Evaluation Nutrition/Malnutrition Findings: Nutrition Notes Start: 10/04/20 11:13 Freq: Status: Active Protocol: Document 10/23/20 14:10 AB (Rec: 10/23/20 14:15 AB [id number]) Co-Sign 10/23/20 14:10 MK Nutrition Notes Initial or Follow up Brief Note Current Diagnosis Acute Kidney Injury, Respiratory Failure Other Pertinent Diagnosis Cardiac arrest, s/p c-sectuion and supracervial hysterectomy Current Diet Vital AF 1.2 at 65ml/hr Subjective/Other Information F/U for TF start/rate. TF was stopped earlier today d/t CT. Per RN, TF will be restarted at goal and pt has been tolerating TF. Nutrition Intervention Follow-Up By: 10/27/20 Additional Comments F/U for TF tolerance
[2020-10-26] MEDS: GLYCOPYRROLATE 1 MG TAB PO SCH ×2 (09:33→21:14)
[2020-10-26] MEDS: TOPIRAMATE TAB 25 MG TAB PO SCH ×2 (09:33→21:18)
[2020-10-26] MEDS: FUROSEMIDE 40 MG TAB PO SCH (09:33)
[2020-10-26] MEDS: ENOXAPARIN 40 MG/0.4 ML INJ SUB-Q SCH (09:34)
[2020-10-26] MEDS: FAMOTIDINE 20 MG TAB PO SCH ×2 (09:34→21:14)
[2020-10-26] MEDS: SODIUM BICARBONATE 650 MG TAB PO SCH ×3 (09:34→19:47)
--- NOTE | 2020-10-26 09:47 | Progress Note ---
Assessment and Plan 30 y/o female with Eclampsia, s/p emergent section with DIC, acute respiratory failure and worsening renal function. 10/26/20: Will obtain ABG today. If good, will attempt on T-piece later. Continue PT/OT. Will speak with CM about possiblity of LTACH or nursing facility that can take trached patients. 10/23/20: Daily PSV trials for as long as patient will tolerate. Needs PT/OT consult for passive range of motion. 10/22/20: Will start prolonged PSV trials. Attempt to wean from vent and then transition to floor to see if mental status improves. Continue tube feeds. 10/21/20: Trach and peg placed. No sedation. Restart Lovenox for Upper Ext DVT. Restart feeds when surgery states ok to use PEG. C. Diff treatment per ID. Guarded prognosis. Will be a superintendent container terminal wean. Hopeful to wean off vent at least and then can transfer to floor. 10/20/20: NPO after midnight. DVT study just read from 10/14 on yesterday showing upper ext DVT. Started on Lovenox but need to hold therapy until after surgery. could be source of fevers. No sedation. 10/19/20: Stable BP. Will meet/talk with family at noon over the phone with myself and case management. Need to discuss goals of care and what next steps would be. Patient would need trach and peg and transfer to LTACH if family ok with this. Follow up speciation of GNR's in blood. Has been on Cefepime. Continues therapy for C. Diff. Guarded prognosis. Continue daily PSV trials but not ready for extubation secondary to mental state. 10/18/20: Blood pressure is much better with the addition of meds started on yesterday. Need to have family meeting jesica in regards to goals of care. Continue Daily PSV trials but not ready for extubation. Continue therapy for C. Diff per ID. 10/17/20: CT scan was of no help in regards to fevers. C. Diff is positive and BP now is more uncontrolled despite increasing labetalol. Today will increase to 300 TID. Added TID Hydralazine and added PO lasix given her mild pulmonary htn seen on echo. Spoke with mother over the phone and she requests to come see the patient. Given current circumstances, will allow her to come briefly today and then will speak with her at the bedside. No neurology is available at the time and suspect these will be the majority of her questions. Tolerated PSV briefly yesterday and will do again today but not for extended periods as given her mental state she is not a candidate for extubation. I will also ask the mother about detention care (trach and peg) when she comes today. Overall prognosis is guarded to poor. If oral meds cannot regulate blood pressure, may need Cardene drip. Continue therapy for C. Diff per ID. 10/16/20: Needs a different consent for CT of abdomen and pelvis. I have signed the one in the chart. The nurse who obtained the first consent did obtain cons ent for contrast, it just wasn't listed on the that consent. Await neurology input on EEG vs MRI findings. Patient has now been intubated 14 days. Need to have family meeting to discuss goals of care but I suspect family will want to hear from Neurology as well. Tolerating PSV trials but will only do briefly as patient is not a candidate for extubation today. Will increase labetalol to 200 TID based on MRI report. Overall prognosis is guarded to poor. 10/15/2020: MRI and CT's today. Continue Precedex and PRN fent pushes. ID ordered C. Diff test. Continue D10 and tube feeds. Continue vent support. Suspect patient will need trach and peg. 10/14/2020: Await MRI. Continue Precedex and only use PRN fent pushes. CM states that there is a . Now with persistent fever, will obtain CT abdomen pelvis with contrast to see if source for fevers can be found. Continue D10 as sugars are still not elevated. 10/12/2020: Patient seen on 10/12 but note entered late. Formal neurology consult today. Hold all sedation if possible and only use precedex. CM to find out if there is truly a or if the decisions would fall on mother as I do not know the ages of her children but I don't think they are of age to make decisions. Guarded prognosis given mental state. 10/08/2020: Will start patient on precedex today. Plan is to wean off fent drip. Will increase buspar to BID. Need to see patient on as little sedation as possible to determine neurological status. EEG has still not been read. Mag stopped yesterday. Largest concern now is neurologic function. 10/07/2020: Head CT unremarkable. Await EEG to be read. Will stop mag Drip. If seizures occur then will load with Keppra and start BID dosing of this. Appreciate OB note. Continue D10 as sugars are still not severely elevated until feeds are at goal. PRN ativan present as well. Will add dilaudid for pain control. Increased BB to TID and added PRN hydralazine 10/06/2020: Stat Head CT today. Likely needs EEG. Will order. Continue Mag drip and follow up levels. Continue feeds. Continue to wean FiO2 as tolerated. Hold sedatives but can give PRN ativan as needed for seizure activity. Continue D10 as Tube feeds are not at goal yet. Guarded prognosis with mental state. 10/05/2020: Feed today. Stop Albumin and Abx. Will stop D10 once feeds start but will continue q2 hour FSBS until 3 consecutive >180. H/H stable. Will continue to aggressively wean FiO2. Patient has a 6.5 tube that will likely impede PSV trials given her size so will attempt to change out. Also will rest art her home meds for anxiety and chronic migraine therapy. Prognosis is still guarded but promising given her hemodynamic stability. Continue chowdhury for accurate urine out put. 1. CV-Extremely volume deplete as well as intrasvascular depletion. Will continue to bolus with LR and saline as needed. Will add Albumin to help with intravascular volume. Spoke with OB attending over phone yesterday. No acute indication for steroids at this time. Serial H/H's given maximum pressor requirements. Will transfuse to keep up with AVINASH drain and help with weaning. Severely acidotic but improving. Likely adding to pressor requirement. GOAL is map of 65 and will wean accordingly. Will start to wean Sohail first. Ordered art line as well. 2. Heme-DIC secondary to Eclampsia, possible sepsis but white count could be stress related. Will continue to transfuse PRBC's and FFP with Cryo as needed. Follow Fibrinogen levels. Tele Heme has been consulted and note reviewed. Will give one cryo for every 6 units of PRBC's transfused. has gotten one cryo, awaiting the other to thaw out. Plts at 72K right now. Hold on further transfusion. May need to consider Factor VII if execessive bleeding continues. Will also put on broad spec abx therapy incase of possible sepsis causing DIC. Hopeful with correction of coaguloapthy she will improve. 3. Very very guarded prognosis. Will continue aggressive resuscitation. Family to come visit given exceptional case and extremely guarded prognosis. CCT 31 minutes. Subjective Date of service: 10/26/20 Principal diagnosis: Eclampsia/HELLP Syndrome, ADOLPH, DIC; s/p , s/p sup racervical hyst Interval history: No acute events. Remains unresponsive but eyes open. Currently getting left upper ext ultrasound. No fevers. Has been on PSV since I asked RT to place on this Monday. No issues. Good sats. Objective Vital Signs - 12hr 10/25/20 10/25/20 10/25/20 21:54 22:00 23:00 Temperature Pulse Rate 115 H 93 H 94 H Pulse Rate [ Anterior Bilateral Throughout] Pulse Rate [ From Monitor] Respiratory 15 14 Rate Respiratory Rate [Anterior Bilateral Throughout] Blood Pressure 136/79 141/77 156/69 O2 Sat by Pulse 99 98 Oximetry O2 Sat by Pulse Oximetry [ Assessment] 10/25/20 10/25/20 10/26/20 23:17 23:57 00:00 Temperature 99.2 F Pulse Rate 80 96 H Pulse Rate [ Anterior Bilateral Throughout] Pulse Rate [ 82 From Monitor] Respiratory 16 21 Rate Respiratory Rate [Anterior Bilateral Throughout] Blood Pressure 156/69 156/72 O2 Sat by Pulse 98 98 Oximetry O2 Sat by Pulse 98 Oximetry [ Assessment] 10/26/20 10/26/20 10/26/20 00:10 00:11 01:00 Temperature Pulse Rate 87 103 H Pulse Rate [ 89 Anterior Bilateral Throughout] Pulse Rate [ From Monitor] Respiratory 23 15 Rate Respiratory 23 Rate [Anterior Bilateral Throughout] Blood Pressure 156/72 134/77 O2 Sat by Pulse 98 98 Oximetry O2 Sat by Pulse Oximetry [ Assessment] 10/26/20 10/26/20 10/26/20 02:00 03:01 04:00 Temperature 99.0 F Pulse Rate 104 H 89 99 H Pulse Rate [ Anterior Bilateral Throughout] Pulse Rate [ 83 From Monitor] Respiratory 15 18 21 Rate Respiratory Rate [Anterior Bilateral Throughout] Blood Pressure 138/80 134/66 134/79 O2 Sat by Pulse 98 99 98 Oximetry O2 Sat by Pulse Oximetry [ Assessment] 10/26/20 10/26/2021 05:01 05:06 06:00 Temperature Pulse Rate 96 H 91 H 105 H Pulse Rate [ Anterior Bilateral Throughout] Pulse Rate [ From Monitor] Respiratory 16 15 Rate Respiratory Rate [Anterior Bilateral Throughout] Blood Pressure 134/79 129/88 O2 Sat by Pulse 99 98 Oximetry O2 Sat by Pulse Oximetry [ Assessment] 10/26/20 10/26/20 10/26/20 07:00 07:21 07:58 Temperature 99.6 F Pulse Rate 89 104 H 111 H Pulse Rate [ 106 H Anterior Bilateral Throughout] Pulse Rate [ 108 H From Monitor] Respiratory 15 23 25 H Rate Respiratory 24 Rate [Anterior Bilateral Throughout] Blood Pressure 124/79 124/79 O2 Sat by Pulse 99 98 98 Oximetry O2 Sat by Pulse 98 Oximetry [ Assessment] 10/26/20 10/26/20 10/26/20 08:00 09:00 09:34 Temperature Pulse Rate 109 H 104 H 111 H Pulse Rate [ Anterior Bilateral Throughout] Pulse Rate [ From Monitor] Respiratory 25 H 23 Rate Respiratory Rate [Anterior Bilateral Throughout] Blood Pressure 142/82 138/81 138/81 O2 Sat by Pulse 98 97 Oximetry O2 Sat by Pulse Oximetry [ Assessment] Constitutional: comatose, other (critically ill on ventilator trach) Eyes: non-icteric ENT: oropharynx moist, other (orally intubated and not sedated) Neck: other (large in cirumference) Effort: normal Ascultation: Bilateral: clear, diminished breath sounds, other (coarse BS bilaterally w/ mild faint wheezes) Percussion: Bilateral: not dull Cardiovascular: regular rate and rhythm, other (no mrg) Gastrointestinal: normoactive bowel sounds, soft, other (post surgical changes with drain on the left side) Extremities: no cyanosis, pink and warm, anasarca Neurologic: other (unresponsive, not following commands, not tracking) Psychiatric: other (unable to assess) CBC and BMP: 10/23/20 05:34 10/23/20 05:34 ABG, PT/INR, D-dimer: ABG ABG pH 7.473 (7.320-7.450) H 10/13/20 07:18 POC ABG pCO2 20.7 mmHg (32.0-48.0) L 10/13/20 07:18 ABG pCO2 25.0 mm Hg 10/10/20 04:42 POC ABG pO2 137.9 mmHg (83-108) H 10/13/20 07:18 ABG pO2 95.2 mm Hg (80.0-90.0) H 10/10/20 04:42 POC ABG HCO3 14.8 10/13/20 07:18 ABG O2 Saturation 97.9 % (95.0-99.0) 10/10/20 04:42 PT/INR, D-dimer PT 13.6 Sec. (12.2-14.9) 10/21/20 13:54 INR 1.06 (0.87-1.13) 10/21/20 13:54 D-Dimer > 39200 ng/mlDDU (0-234) H 10/04/20 10:00 Abnormal lab findings: Abnormal Labs 10/02/20 10/02/20 10/02/20 12:03 12:18 12:18 WBC 14.9 H RBC Hgb 9.1 L Hct MCV MCH 22 L MCHC 28 L RDW 17.6 H Plt Count 102 L Lymph % (Auto) Dare % (Auto) Lymph # (Auto) Dare # (Auto) Baso # (Auto) Seg Neutrophils % Seg Neuts % (Manual) 36.0 L Lymphocytes % (Manual) 49.0 H Monocytes % (Manual) Nucleated RBC % 6.0 H Seg Neutrophils # Seg Neutrophils # Man Lymphocytes # (Manual) 7.3 H Monocytes # (Manual) PT INR APTT Fibrinogen D-Dimer ABG pH POC ABG pCO2 POC ABG pO2 ABG pO2 ABG HCO3 ABG Base Excess ABG Hemoglobin ABG Oxyhemoglobin ABG Sodium ABG Potassium ABG Chloride ABG Glucose VBG pH Oxyhemoglobin Carboxyhemoglobin Sodium 134 L Potassium Chloride Carbon Dioxide 12 L BUN 6 L Creatinine Glucose 390 H POC Glucose 451 H Lactic Acid Calcium Ionized Calcium Magnesium AST 135 H ALT 85 H Alkaline Phosphatase 172 H Lactate Dehydrogenase 641 H NT-Pro-B Natriuret Pep Total Protein 5.4 L Albumin 2.3 L Arterial Blood Glucose Arterial Blood Ionized Calcium Urine WBC (Auto) Vancomycin Trough Phenytoin Crossmatch 10/02/20 10/02/20 10/02/20 12:50 13:05 13:05 WBC 38.6 H RBC Hgb 8.9 L Hct 29.0 L MCV 73 L MCH 22 L MCHC RDW 17.2 H Plt Count Lymph % (Auto) Dare % (Auto) Lymph # (Auto) Dare # (Auto) Baso # (Auto) Seg Neutrophils % Seg Neuts % (Manual) Lymphocytes % (Manual) Monocytes % (Manual) Nucleated RBC % 2.0 H Seg Neutrophils # Seg Neutrophils # Man 20.1 H Lymphocytes # (Manual) 10.4 H Monocytes # (Manual) 2.3 H PT INR APTT Fibrinogen D-Dimer ABG pH POC ABG pCO2 POC ABG pO2 ABG pO2 ABG HCO3 ABG Base Excess ABG Hemoglobin ABG Oxyhemoglobin ABG Sodium ABG Potassium ABG Chloride ABG Glucose VBG pH Oxyhemoglobin Carboxyhemoglobin Sodium Potassium Chloride Carbon Dioxide BUN Creatinine Glucose POC Glucose Lactic Acid Calcium Ionized Calcium Magnesium AST 184 H ALT 113 H Alkaline Phosphatase Lactate Dehydrogenase 769 H NT-Pro-B Natriuret Pep Total Protein Albumin Arterial Blood Glucose Arterial Blood Ionized Calcium Urine WBC (Auto) Vancomycin Trough Phenytoin Crossmatch See Detail 10/02/20 10/02/20 10/02/20 16:25 16:35 16:35 WBC RBC Hgb Hct MCV MCH MCHC RDW Plt Count Lymph % (Auto) Dare % (Auto) Lymph # (Auto) Dare # (Auto) Baso # (Auto) Seg Neutrophils % Seg Neuts % (Manual) Lymphocytes % (Manual) Monocytes % (Manual) Nucleated RBC % Seg Neutrophils # Seg Neutrophils # Man Lymphocytes # (Manual) Monocytes # (Manual) PT INR APTT Fibrinogen D-Dimer ABG pH 7.031 L* POC ABG pCO2 POC ABG pO2 ABG pO2 116.8 H ABG HCO3 12.7 L ABG Base Excess -16.9 L ABG Hemoglobin 7.8 L ABG Oxyhemoglobin ABG Sodium ABG Potassium ABG Chloride ABG Glucose VBG pH Oxyhemoglobin 94.9 L Carboxyhemoglobin Sodium Potassium Chloride Carbon Dioxide BUN Creatinine Glucose 403 H POC Glucose Lactic Acid 11.40 H* Calcium 6.3 L D Ionized Calcium Magnesium AST 70 H ALT Alkaline Phosphatase Lactate Dehydrogenase NT-Pro-B Natriuret Pep Total Protein 1.9 L D Albumin 1.2 L Arterial Blood Glucose Arterial Blood Ionized Calcium Urine WBC (Auto) Vancomycin Trough Phenytoin Crossmatch 10/02/20 10/02/20 10/02/20 18:18 18:18 22:30 WBC 11.5 H RBC 2.06 L Hgb 5.5 L* D Hct 17.3 L* D MCV MCH 27 L MCHC RDW 19.5 H Plt Count 60 L Lymph % (Auto) Dare % (Auto) Lymph # (Auto) Dare # (Auto) Baso # (Auto) Seg Neutrophils % Seg Neuts % (Manual) Lymphocytes % (Manual) 8.0 L Monocytes % (Manual) 8.0 H Nucleated RBC % 8.0 H Seg Neutrophils # Seg Neutrophils # Man Lymphocytes # (Manual) 0.9 L Monocytes # (Manual) 0.9 H PT 37.1 H INR 3.71 H APTT 135.8 H* Fibrinogen D-Dimer ABG pH 7.067 L* POC ABG pCO2 POC ABG pO2 ABG pO2 183.0 H ABG HCO3 14.1 L ABG Base Excess -15.1 L ABG Hemoglobin 7.7 L ABG Oxyhemoglobin ABG Sodium ABG Potassium ABG Chloride ABG Glucose VBG pH Oxyhemoglobin Carboxyhemoglobin Sodium Potassium Chloride Carbon Dioxide BUN Creatinine Glucose POC Glucose Lactic Acid Calcium Ionized Calcium Magnesium AST ALT Alkaline Phosphatase Lactate Dehydrogenase NT-Pro-B Natriuret Pep Total Protein Albumin Arterial Blood Glucose Arterial Blood Ionized Calcium Urine WBC (Auto) Vancomycin Trough Phenytoin Crossmatch 10/02/20 10/02/20 10/03/20 Unknown Unknown 00:01 WBC RBC Hgb Hct MCV MCH MCHC RDW Plt Count Lymph % (Auto) Dare % (Auto) Lymph # (Auto) Dare # (Auto) Baso # (Auto) Seg Neutrophils % Seg Neuts % (Manual) Lymphocytes % (Manual) Monocytes % (Manual) Nucleated RBC % Seg Neutrophils # Seg Neutrophils # Man Lymphocytes # (Manual) Monocytes # (Manual) PT 61.1 H INR 6.92 H* APTT 158.7 H* Fibrinogen < 60 L* D-Dimer > 57215 H ABG pH POC ABG pCO2 POC ABG pO2 ABG pO2 ABG HCO3 ABG Base Excess ABG Hemoglobin ABG Oxyhemoglobin ABG Sodium ABG Potassium ABG Chloride ABG Glucose VBG pH 6.949 L* Oxyhemoglobin Carboxyhemoglobin Sodium Potassium Chloride Carbon Dioxide BUN Creatinine Glucose POC Glucose 196 H Lactic Acid Calcium Ionized Calcium Magnesium AST ALT Alkaline Phosphatase Lactate Dehydrogenase NT-Pro-B Natriuret Pep Total Protein Albumin Arterial Blood Glucose Arterial Blood Ionized Calcium Urine WBC (Auto) Vancomycin Trough Phenytoin Crossmatch 10/03/20 10/03/20 10/03/20 00:40 00:40 00:40 WBC RBC Hgb Hct MCV MCH MCHC RDW Plt Count Lymph % (Auto) Dare % (Auto) Lymph # (Auto) Dare # (Auto) Baso # (Auto) Seg Neutrophils % Seg Neuts % (Manual) Lymphocytes % (Manual) Monocytes % (Manual) Nucleated RBC % Seg Neutrophils # Seg Neutrophils # Man Lymphocytes # (Manual) Monocytes # (Manual) PT 15.1 H INR 1.21 H APTT Fibrinogen D-Dimer ABG pH POC ABG pCO2 POC ABG pO2 ABG pO2 ABG HCO3 ABG Base Excess ABG Hemoglobin ABG Oxyhemoglobin ABG Sodium ABG Potassium ABG Chloride ABG Glucose VBG pH Oxyhemoglobin Carboxyhemoglobin Sodium 136 L Potassium Chloride Carbon Dioxide BUN Creatinine 1.6 H D Glucose 106 H POC Glucose Lactic Acid 5.60 H* Calcium 6.5 L Ionized Calcium Magnesium AST 232 H ALT 104 H Alkaline Phosphatase Lactate Dehydrogenase NT-Pro-B Natriuret Pep Total Protein 3.9 L D Albumin 2.4 L Arterial Blood Glucose Arterial Blood Ionized Calcium Urine WBC (Auto) Vancomycin Trough Phenytoin Crossmatch 10/03/20 10/03/20 10/03/20 02:08 02:08 02:08 WBC 17.6 H RBC 3.27 L Hgb 9.9 L D Hct 29.9 L D MCV MCH MCHC RDW 16.5 H Plt Count 75 L Lymph % (Auto) Dare % (Auto) Lymph # (Auto) Dare # (Auto) Baso # (Auto) Seg Neutrophils % Seg Neuts % (Manual) 76.0 H Lymphocytes % (Manual) Monocytes % (Manual) Nucleated RBC % 8.0 H Seg Neutrophils # Seg Neutrophils # Man 13.4 H Lymphocytes # (Manual) Monocytes # (Manual) PT INR APTT Fibrinogen D-Dimer ABG pH POC ABG pCO2 POC ABG pO2 ABG pO2 ABG HCO3 ABG Base Excess ABG Hemoglobin ABG Oxyhemoglobin ABG Sodium ABG Potassium ABG Chloride ABG Glucose VBG pH Oxyhemoglobin Carboxyhemoglobin Sodium Potassium Chloride Carbon Dioxide 19 L BUN Creatinine 1.4 H Glucose 306 H POC Glucose Lactic Acid 10.50 H* Calcium 6.4 L Ionized Calcium Magnesium AST ALT Alkaline Phosphatase Lactate Dehydrogenase NT-Pro-B Natriuret Pep Total Protein Albumin Arterial Blood Glucose Arterial Blood Ionized Calcium Urine WBC (Auto) Vancomycin Trough Phenytoin Crossmatch 10/03/20 10/03/20 10/03/20 02:42 03:59 05:31 WBC RBC Hgb Hct MCV MCH MCHC RDW Plt Count Lymph % (Auto) Dare % (Auto) Lymph # (Auto) Dare # (Auto) Baso # (Auto) Seg Neutrophils % Seg Neuts % (Manual) Lymphocytes % (Manual) Monocytes % (Manual) Nucleated RBC % Seg Neutrophils # Seg Neutrophils # Man Lymphocytes # (Manual) Monocytes # (Manual) PT INR APTT Fibrinogen D-Dimer ABG pH 7.144 L POC ABG pCO2 54.4 H POC ABG pO2 ABG pO2 ABG HCO3 ABG Base Excess ABG Hemoglobin 10.0 L ABG Oxyhemoglobin ABG Sodium ABG Potassium ABG Chloride 108.0 H ABG Glucose 306 H VBG pH Oxyhemoglobin Carboxyhemoglobin Sodium Potassium Chloride Carbon Dioxide BUN Creatinine Glucose POC Glucose 209 H Lactic Acid 9.20 H* Calcium Ionized Calcium Magnesium AST ALT Alkaline Phosphatase Lactate Dehydrogenase NT-Pro-B Natriuret Pep Total Protein Albumin Arterial Blood Glucose 306 H Arterial Blood Ionized Calcium 3.7 L Urine WBC (Auto) Vancomycin Trough Phenytoin Crossmatch 10/03/20 10/03/20 10/03/20 09:00 09:00 09:00 WBC 27.4 H RBC 2.84 L Hgb 8.5 L Hct 25.1 L MCV MCH MCHC RDW 16.1 H Plt Count 72 L Lymph % (Auto) Dare % (Auto) Lymph # (Auto) Dare # (Auto) Baso # (Auto) Seg Neutrophils % Seg Neuts % (Manual) Lymphocytes % (Manual) 11.0 L Monocytes % (Manual) Nucleated RBC % 3.0 H Seg Neutrophils # Seg Neutrophils # Man 18.4 H Lymphocytes # (Manual) Monocytes # (Manual) 1.9 H PT INR APTT Fibrinogen D-Dimer ABG pH POC ABG pCO2 POC ABG pO2 ABG pO2 ABG HCO3 ABG Base Excess ABG Hemoglobin ABG Oxyhemoglobin ABG Sodium ABG Potassium ABG Chloride ABG Glucose VBG pH Oxyhemoglobin Carboxyhemoglobin Sodium Potassium Chloride Carbon Dioxide BUN Creatinine 1.7 H Glucose 216 H POC Glucose Lactic Acid 9.20 H* Calcium 6.3 L Ionized Calcium Magnesium AST 331 H ALT 171 H Alkaline Phosphatase Lactate Dehydrogenase NT-Pro-B Natriuret Pep Total Protein 3.7 L Albumin 1.9 L Arterial Blood Glucose Arterial Blood Ionized Calcium Urine WBC (Auto) Vancomycin Trough Phenytoin Crossmatch 10/03/20 10/03/20 10/03/20 11:20 11:46 11:50 WBC 28.7 H RBC 2.67 L Hgb 8.0 L Hct 23.7 L MCV MCH MCHC RDW 16.6 H Plt Count 76 L Lymph % (Auto) Dare % (Auto) Lymph # (Auto) Dare # (Auto) Baso # (Auto) Seg Neutrophils % Seg Neuts % (Manual) Lymphocytes % (Manual) Monocytes % (Manual) Nucleated RBC % Seg Neutrophils # Seg Neutrophils # Man Lymphocytes # (Manual) Monocytes # (Manual) PT INR APTT Fibrinogen D-Dimer ABG pH POC ABG pCO2 POC ABG pO2 ABG pO2 ABG HCO3 ABG Base Excess ABG Hemoglobin ABG Oxyhemoglobin ABG Sodium ABG Potassium ABG Chloride ABG Glucose VBG pH Oxyhemoglobin Carboxyhemoglobin Sodium Potassium Chloride Carbon Dioxide BUN Creatinine Glucose POC Glucose 125 H Lactic Acid 8.00 H* Calcium Ionized Calcium Magnesium AST ALT Alkaline Phosphatase Lactate Dehydrogenase NT-Pro-B Natriuret Pep Total Protein Albumin Arterial Blood Glucose Arterial Blood Ionized Calcium Urine WBC (Auto) Vancomycin Trough Phenytoin Crossmatch 10/03/20 10/04/20 10/04/20 11:50 00:40 00:40 WBC RBC Hgb 6.8 L Hct 19.4 L* MCV MCH MCHC RDW Plt Count 49 L Lymph % (Auto) Dare % (Auto) Lymph # (Auto) Dare # (Auto) Baso # (Auto) Seg Neutrophils % Seg Neuts % (Manual) Lymphocytes % (Manual) Monocytes % (Manual) Nucleated RBC % Seg Neutrophils # Seg Neutrophils # Man Lymphocytes # (Manual) Monocytes # (Manual) PT INR APTT Fibrinogen D-Dimer ABG pH 7.244 L POC ABG pCO2 POC ABG pO2 ABG pO2 ABG HCO3 ABG Base Excess -4.5 L ABG Hemoglobin 7.3 L ABG Oxyhemoglobin ABG Sodium ABG Potassium ABG Chloride ABG Glucose VBG pH Oxyhemoglobin Carboxyhemoglobin Sodium Potassium Chloride Carbon Dioxide BUN Creatinine Glucose POC Glucose Lactic Acid Calcium Ionized Calcium Magnesium AST ALT Alkaline Phosphatase Lactate Dehydrogenase NT-Pro-B Natriuret Pep Total Protein Albumin Arterial Blood Glucose Arterial Blood Ionized Calcium Urine WBC (Auto) Vancomycin Trough Phenytoin Crossmatch 10/04/20 10/04/20 10/04/20 03:53 10:00 10:00 WBC 14.6 H RBC 2.57 L Hgb 7.6 L Hct 22.5 L MCV MCH MCHC RDW 15.8 H Plt Count 38 L Lymph % (Auto) 7.7 L Dare % (Auto) Lymph # (Auto) 1.1 L Dare # (Auto) 0.9 H Baso # (Auto) Seg Neutrophils % 85.6 H Seg Neuts % (Manual) Lymphocytes % (Manual) Monocytes % (Manual) Nucleated RBC % Seg Neutrophils # 12.5 H Seg Neutrophils # Man Lymphocytes # (Manual) Monocytes # (Manual) PT INR APTT Fibrinogen D-Dimer ABG pH POC ABG pCO2 POC ABG pO2 110.6 H ABG pO2 ABG HCO3 ABG Base Excess ABG Hemoglobin 6.7 L ABG Oxyhemoglobin ABG Sodium 132.0 L ABG Potassium ABG Chloride ABG Glucose 111 H VBG pH Oxyhemoglobin Carboxyhemoglobin Sodium 134 L D Potassium Chloride 97.6 L Carbon Dioxide BUN Creatinine 1.7 H Glucose POC Glucose Lactic Acid Calcium 6.3 L Ionized Calcium Magnesium AST 203 H ALT 81 H Alkaline Phosphatase Lactate Dehydrogenase NT-Pro-B Natriuret Pep Total Protein 3.9 L Albumin 2.3 L Arterial Blood Glucose 111 H Arterial Blood Ionized Calcium 3.5 L Urine WBC (Auto) Vancomycin Trough Phenytoin Crossmatch 10/04/20 10/04/20 10/04/20 10:00 10:00 10:14 WBC RBC Hgb Hct MCV MCH MCHC RDW Plt Count Lymph % (Auto) Dare % (Auto) Lymph # (Auto) Dare # (Auto) Baso # (Auto) Seg Neutrophils % Seg Neuts % (Manual) Lymphocytes % (Manual) Monocytes % (Manual) Nucleated RBC % Seg Neutrophils # Seg Neutrophils # Man Lymphocytes # (Manual) Monocytes # (Manual) PT INR APTT Fibrinogen D-Dimer > 43061 H ABG pH POC ABG pCO2 POC ABG pO2 ABG pO2 ABG HCO3 ABG Base Excess ABG Hemoglobin ABG Oxyhemoglobin ABG Sodium ABG Potassium ABG Chloride ABG Glucose VBG pH Oxyhemoglobin Carboxyhemoglobin Sodium Potassium Chloride Carbon Dioxide BUN Creatinine Glucose POC Glucose Lactic Acid 3.90 H* Calcium Ionized Calcium Magnesium AST ALT Alkaline Phosphatase Lactate Dehydrogenase NT-Pro-B Natriuret Pep 2788 H Total Protein Albumin Arterial Blood Glucose Arterial Blood Ionized Calcium Urine WBC (Auto) Vancomycin Trough Phenytoin Crossmatch 10/04/20 10/04/20 10/04/20 14:00 14:00 18:00 WBC 15.7 H RBC 3.17 L Hgb 9.3 L 9.6 L Hct 27.2 L 28.0 L MCV MCH MCHC RDW 16.9 H Plt Count 41 L Lymph % (Auto) 8.6 L Dare % (Auto) Lymph # (Auto) Dare # (Auto) 0.9 H Baso # (Auto) Seg Neutrophils % 85.4 H Seg Neuts % (Manual) Lymphocytes % (Manual) Monocytes % (Manual) Nucleated RBC % Seg Neutrophils # 13.4 H Seg Neutrophils # Man Lymphocytes # (Manual) Monocytes # (Manual) PT INR APTT Fibrinogen D-Dimer ABG pH POC ABG pCO2 POC ABG pO2 ABG pO2 ABG HCO3 ABG Base Excess ABG Hemoglobin ABG Oxyhemoglobin ABG Sodium ABG Potassium ABG Chloride ABG Glucose VBG pH Oxyhemoglobin Carboxyhemoglobin Sodium 133 L Potassium Chloride 96.4 L Carbon Dioxide BUN 18 H Creatinine 1.7 H Glucose POC Glucose Lactic Acid Calcium 6.3 L Ionized Calcium Magnesium AST ALT Alkaline Phosphatase Lactate Dehydrogenase NT-Pro-B Natriuret Pep Total Protein Albumin Arterial Blood Glucose Arterial Blood Ionized Calcium Urine WBC (Auto) Vancomycin Trough Phenytoin Crossmatch 10/04/20 10/04/20 10/05/20 18:00 22:00 05:00 WBC 17.6 H RBC 3.34 L Hgb 9.9 L Hct 29.4 L MCV MCH MCHC RDW 17.1 H Plt Count 56 L Lymph % (Auto) 8.5 L Dare % (Auto) Lymph # (Auto) Dare # (Auto) 1.0 H Baso # (Auto) Seg Neutrophils % 85.1 H Seg Neuts % (Manual) Lymphocytes % (Manual) Monocytes % (Manual) Nucleated RBC % Seg Neutrophils # 15.0 H Seg Neutrophils # Man Lymphocytes # (Manual) Monocytes # (Manual) PT INR APTT Fibrinogen D-Dimer ABG pH POC ABG pCO2 POC ABG pO2 ABG pO2 ABG HCO3 ABG Base Excess ABG Hemoglobin ABG Oxyhemoglobin ABG Sodium ABG Potassium ABG Chloride ABG Glucose VBG pH Oxyhemoglobin Carboxyhemoglobin Sodium 136 L Potassium Chloride Carbon Dioxide BUN 18 H Creatinine 1.7 H Glucose POC Glucose Lactic Acid 2.30 H* Calcium 6.6 L Ionized Calcium Magnesium AST ALT Alkaline Phosphatase Lactate Dehydrogenase NT-Pro-B Natriuret Pep Total Protein Albumin Arterial Blood Glucose Arterial Blood Ionized Calcium Urine WBC (Auto) Vancomycin Trough Phenytoin Crossmatch 10/05/20 10/05/20 10/05/20 05:00 05:00 05:03 WBC RBC Hgb Hct MCV MCH MCHC RDW Plt Count Lymph % (Auto) Dare % (Auto) Lymph # (Auto) Dare # (Auto) Baso # (Auto) Seg Neutrophils % Seg Neuts % (Manual) Lymphocytes % (Manual) Monocytes % (Manual) Nucleated RBC % Seg Neutrophils # Seg Neutrophils # Man Lymphocytes # (Manual) Monocytes # (Manual) PT INR APTT Fibrinogen D-Dimer ABG pH 7.458 H POC ABG pCO2 POC ABG pO2 ABG pO2 74.3 L ABG HCO3 27.5 H ABG Base Excess 3.4 H ABG Hemoglobin 10.0 L ABG Oxyhemoglobin ABG Sodium ABG Potassium ABG Chloride ABG Glucose VBG pH Oxyhemoglobin 94.9 L Carboxyhemoglobin Sodium Potassium Chloride Carbon Dioxide BUN 19 H Creatinine 1.8 H Glucose POC Glucose Lactic Acid Calcium 6.8 L Ionized Calcium 3.9 L Magnesium AST 225 H ALT 85 H Alkaline Phosphatase Lactate Dehydrogenase NT-Pro-B Natriuret Pep Total Protein 4.5 L Albumin 2.7 L Arterial Blood Glucose Arterial Blood Ionized Calcium Urine WBC (Auto) Vancomycin Trough Phenytoin Crossmatch 10/05/20 10/05/20 10/05/20 10:10 15:00 19:40 WBC RBC Hgb Hct MCV MCH MCHC RDW Plt Count Lymph % (Auto) Dare % (Auto) Lymph # (Auto) Dare # (Auto) Baso # (Auto) Seg Neutrophils % Seg Neuts % (Manual) Lymphocytes % (Manual) Monocytes % (Manual) Nucleated RBC % Seg Neutrophils # Seg Neutrophils # Man Lymphocytes # (Manual) Monocytes # (Manual) PT INR APTT Fibrinogen D-Dimer ABG pH POC ABG pCO2 POC ABG pO2 ABG pO2 ABG HCO3 ABG Base Excess ABG Hemoglobin ABG Oxyhemoglobin ABG Sodium ABG Potassium ABG Chloride ABG Glucose VBG pH Oxyhemoglobin Carboxyhemoglobin Sodium Potassium 3.5 L Chloride Carbon Dioxide 31 H 32 H BUN 19 H 19 H Creatinine 1.8 H 1.8 H Glucose POC Glucose Lactic Acid Calcium 7.0 L 7.2 L Ionized Calcium Magnesium 2.90 H AST ALT Alkaline Phosphatase Lactate Dehydrogenase NT-Pro-B Natriuret Pep Total Protein Albumin Arterial Blood Glucose Arterial Blood Ionized Calcium Urine WBC (Auto) Vancomycin Trough Phenytoin Crossmatch 10/06/20 10/06/20 10/06/20 01:05 03:12 04:00 WBC 17.1 H RBC 3.47 L Hgb Hct MCV MCH MCHC RDW 17.4 H Plt Count 82 L Lymph % (Auto) 8.3 L Dare % (Auto) Lymph # (Auto) Dare # (Auto) 1.1 H Baso # (Auto) Seg Neutrophils % 83.8 H Seg Neuts % (Manual) Lymphocytes % (Manual) Monocytes % (Manual) Nucleated RBC % Seg Neutrophils # 14.3 H Seg Neutrophils # Man Lymphocytes # (Manual) Monocytes # (Manual) PT INR APTT Fibrinogen D-Dimer ABG pH 7.474 H POC ABG pCO2 POC ABG pO2 129.5 H ABG pO2 ABG HCO3 ABG Base Excess ABG Hemoglobin 11.4 L ABG Oxyhemoglobin ABG Sodium 131.8 L ABG Potassium ABG Chloride ABG Glucose 103 H VBG pH Oxyhemoglobin Carboxyhemoglobin 0.3 L Sodium Potassium Chloride Carbon Dioxide BUN Creatinine Glucose POC Glucose Lactic Acid Calcium Ionized Calcium Magnesium 3.70 H AST ALT Alkaline Phosphatase Lactate Dehydrogenase NT-Pro-B Natriuret Pep Total Protein Albumin Arterial Blood Glucose 103 H Arterial Blood Ionized Calcium 4.2 L Urine WBC (Auto) Vancomycin Trough Phenytoin Crossmatch 10/06/20 10/06/20 10/06/20 04:00 05:31 08:12 WBC RBC Hgb Hct MCV MCH MCHC RDW Plt Count Lymph % (Auto) Dare % (Auto) Lymph # (Auto) Dare # (Auto) Baso # (Auto) Seg Neutrophils % Seg Neuts % (Manual) Lymphocytes % (Manual) Monocytes % (Manual) Nucleated RBC % Seg Neutrophils # Seg Neutrophils # Man Lymphocytes # (Manual) Monocytes # (Manual) PT INR APTT Fibrinogen D-Dimer ABG pH POC ABG pCO2 POC ABG pO2 ABG pO2 ABG HCO3 ABG Base Excess ABG Hemoglobin ABG Oxyhemoglobin ABG Sodium ABG Potassium ABG Chloride ABG Glucose VBG pH Oxyhemoglobin Carboxyhemoglobin Sodium Potassium 3.5 L Chloride Carbon Dioxide BUN 19 H Creatinine 1.8 H Glucose 102 H POC Glucose 116 H Lactic Acid Calcium 7.2 L Ionized Calcium Magnesium 5.40 H AST 307 H ALT 137 H Alkaline Phosphatase Lactate Dehydrogenase NT-Pro-B Natriuret Pep Total Protein 4.5 L Albumin 2.6 L Arterial Blood Glucose Arterial Blood Ionized Calcium Urine WBC (Auto) Vancomycin Trough Phenytoin Crossmatch 10/06/20 10/06/20 10/06/20 11:00 11:50 20:13 WBC RBC Hgb Hct MCV MCH MCHC RDW Plt Count Lymph % (Auto) Dare % (Auto) Lymph # (Auto) Dare # (Auto) Baso # (Auto) Seg Neutrophils % Seg Neuts % (Manual) Lymphocytes % (Manual) Monocytes % (Manual) Nucleated RBC % Seg Neutrophils # Seg Neutrophils # Man Lymphocytes # (Manual) Monocytes # (Manual) PT INR APTT Fibrinogen D-Dimer ABG pH POC ABG pCO2 POC ABG pO2 ABG pO2 ABG HCO3 ABG Base Excess ABG Hemoglobin ABG Oxyhemoglobin ABG Sodium ABG Potassium ABG Chloride ABG Glucose VBG pH Oxyhemoglobin Carboxyhemoglobin Sodium Potassium Chloride Carbon Dioxide BUN Creatinine Glucose POC Glucose 106 H Lactic Acid Calcium Ionized Calcium Magnesium 6.50 H 6.20 H AST ALT Alkaline Phosphatase Lactate Dehydrogenase NT-Pro-B Natriuret Pep Total Protein Albumin Arterial Blood Glucose Arterial Blood Ionized Calcium Urine WBC (Auto) Vancomycin Trough Phenytoin Crossmatch 10/06/20 10/06/20 10/06/20 20:17 22:29 23:57 WBC RBC Hgb Hct MCV MCH MCHC RDW Plt Count Lymph % (Auto) Dare % (Auto) Lymph # (Auto) Dare # (Auto) Baso # (Auto) Seg Neutrophils % Seg Neuts % (Manual) Lymphocytes % (Manual) Monocytes % (Manual) Nucleated RBC % Seg Neutrophils # Seg Neutrophils # Man Lymphocytes # (Manual) Monocytes # (Manual) PT INR APTT Fibrinogen D-Dimer ABG pH POC ABG pCO2 POC ABG pO2 ABG pO2 ABG HCO3 ABG Base Excess ABG Hemoglobin ABG Oxyhemoglobin ABG Sodium ABG Potassium ABG Chloride ABG Glucose VBG pH Oxyhemoglobin Carboxyhemoglobin Sodium Potassium Chloride Carbon Dioxide BUN Creatinine Glucose POC Glucose 112 H 126 H 133 H Lactic Acid Calcium Ionized Calcium Magnesium AST ALT Alkaline Phosphatase Lactate Dehydrogenase NT-Pro-B Natriuret Pep Total Protein Albumin Arterial Blood Glucose Arterial Blood Ionized Calcium Urine WBC (Auto) Vancomycin Trough Phenytoin Crossmatch 10/07/20 10/07/20 10/07/20 00:35 02:22 03:16 WBC RBC Hgb Hct MCV MCH MCHC RDW Plt Count Lymph % (Auto) Dare % (Auto) Lymph # (Auto) Dare # (Auto) Baso # (Auto) Seg Neutrophils % Seg Neuts % (Manual) Lymphocytes % (Manual) Monocytes % (Manual) Nucleated RBC % Seg Neutrophils # Seg Neutrophils # Man Lymphocytes # (Manual) Monocytes # (Manual) PT INR APTT Fibrinogen D-Dimer ABG pH POC ABG pCO2 POC ABG pO2 ABG pO2 ABG HCO3 ABG Base Excess ABG Hemoglobin 11.6 L ABG Oxyhemoglobin ABG Sodium ABG Potassium ABG Chloride ABG Glucose 156 H VBG pH Oxyhemoglobin Carboxyhemoglobin 0.3 L Sodium Potassium Chloride Carbon Dioxide BUN Creatinine Glucose POC Glucose 124 H Lactic Acid Calcium Ionized Calcium Magnesium 5.90 H AST ALT Alkaline Phosphatase Lactate Dehydrogenase NT-Pro-B Natriuret Pep Total Protein Albumin Arterial Blood Glucose 156 H Arterial Blood Ionized Calcium 4.2 L Urine WBC (Auto) Vancomycin Trough Phenytoin Crossmatch 10/07/20 10/07/20 10/07/20 04:06 05:45 07:05 WBC 19.2 H RBC 3.57 L Hgb Hct MCV MCH MCHC 35 H RDW 17.1 H Plt Count 129 L Lymph % (Auto) Dare % (Auto) Lymph # (Auto) Dare # (Auto) Baso # (Auto) Seg Neutrophils % Seg Neuts % (Manual) 94.0 H Lymphocytes % (Manual) 6.0 L Monocytes % (Manual) Nucleated RBC % Seg Neutrophils # Seg Neutrophils # Man 18.0 H Lymphocytes # (Manual) Monocytes # (Manual) PT INR APTT Fibrinogen D-Dimer ABG pH POC ABG pCO2 POC ABG pO2 ABG pO2 ABG HCO3 ABG Base Excess ABG Hemoglobin ABG Oxyhemoglobin ABG Sodium ABG Potassium ABG Chloride ABG Glucose VBG pH Oxyhemoglobin Carboxyhemoglobin Sodium Potassium Chloride Carbon Dioxide BUN Creatinine Glucose POC Glucose 135 H 149 H Lactic Acid Calcium Ionized Calcium Magnesium AST ALT Alkaline Phosphatase Lactate Dehydrogenase NT-Pro-B Natriuret Pep Total Protein Albumin Arterial Blood Glucose Arterial Blood Ionized Calcium Urine WBC (Auto) Vancomycin Trough Phenytoin Crossmatch 10/07/20 10/07/20 10/07/20 07:05 07:05 12:21 WBC RBC Hgb Hct MCV MCH MCHC RDW Plt Count Lymph % (Auto) Dare % (Auto) Lymph # (Auto) Dare # (Auto) Baso # (Auto) Seg Neutrophils % Seg Neuts % (Manual) Lymphocytes % (Manual) Monocytes % (Manual) Nucleated RBC % Seg Neutrophils # Seg Neutrophils # Man Lymphocytes # (Manual) Monocytes # (Manual) PT INR APTT Fibrinogen D-Dimer ABG pH POC ABG pCO2 POC ABG pO2 ABG pO2 ABG HCO3 ABG Base Excess ABG Hemoglobin ABG Oxyhemoglobin ABG Sodium ABG Potassium ABG Chloride ABG Glucose VBG pH Oxyhemoglobin Carboxyhemoglobin Sodium Potassium Chloride Carbon Dioxide BUN 21 H Creatinine 1.7 H Glucose 171 H POC Glucose 124 H Lactic Acid Calcium 7.4 L Ionized Calcium Magnesium 6.10 H AST 245 H ALT 147 H Alkaline Phosphatase Lactate Dehydrogenase NT-Pro-B Natriuret Pep Total Protein 5.3 L Albumin 2.8 L Arterial Blood Glucose Arterial Blood Ionized Calcium Urine WBC (Auto) Vancomycin Trough Phenytoin Crossmatch 10/07/20 10/07/20 10/07/20 19:52 21:00 21:50 WBC RBC Hgb Hct MCV MCH MCHC RDW Plt Count Lymph % (Auto) Dare % (Auto) Lymph # (Auto) Dare # (Auto) Baso # (Auto) Seg Neutrophils % Seg Neuts % (Manual) Lymphocytes % (Manual) Monocytes % (Manual) Nucleated RBC % Seg Neutrophils # Seg Neutrophils # Man Lymphocytes # (Manual) Monocytes # (Manual) PT INR APTT Fibrinogen D-Dimer ABG pH POC ABG pCO2 POC ABG pO2 ABG pO2 ABG HCO3 ABG Base Excess ABG Hemoglobin ABG Oxyhemoglobin ABG Sodium ABG Potassium ABG Chloride ABG Glucose VBG pH Oxyhemoglobin Carboxyhemoglobin Sodium Potassium Chloride Carbon Dioxide BUN Creatinine Glucose POC Glucose 193 H 138 H Lactic Acid Calcium Ionized Calcium 4.4 L Magnesium AST ALT Alkaline Phosphatase Lactate Dehydrogenase NT-Pro-B Natriuret Pep Total Protein Albumin Arterial Blood Glucose Arterial Blood Ionized Calcium Urine WBC (Auto) Vancomycin Trough Phenytoin Crossmatch 10/07/20 10/08/20 10/08/20 23:41 04:20 05:30 WBC RBC Hgb Hct MCV MCH MCHC RDW Plt Count Lymph % (Auto) Dare % (Auto) Lymph # (Auto) Dare # (Auto) Baso # (Auto) Seg Neutrophils % Seg Neuts % (Manual) Lymphocytes % (Manual) Monocytes % (Manual) Nucleated RBC % Seg Neutrophils # Seg Neutrophils # Man Lymphocytes # (Manual) Monocytes # (Manual) PT INR APTT Fibrinogen D-Dimer ABG pH 7.467 H POC ABG pCO2 POC ABG pO2 189.8 H ABG pO2 ABG HCO3 ABG Base Excess ABG Hemoglobin 10.8 L ABG Oxyhemoglobin ABG Sodium ABG Potassium ABG Chloride ABG Glucose 133 H VBG pH Oxyhemoglobin Carboxyhemoglobin Sodium Potassium Chloride Carbon Dioxide BUN Creatinine Glucose POC Glucose 118 H 114 H Lactic Acid Calcium Ionized Calcium Magnesium AST ALT Alkaline Phosphatase Lactate Dehydrogenase NT-Pro-B Natriuret Pep Total Protein Albumin Arterial Blood Glucose 133 H Arterial Blood Ionized Calcium 4.2 L Urine WBC (Auto) Vancomycin Trough Phenytoin Crossmatch 10/08/20 10/08/20 10/08/20 05:43 06:42 06:42 WBC 23.6 H RBC 3.54 L Hgb Hct MCV MCH MCHC RDW 17.8 H Plt Count Lymph % (Auto) Dare % (Auto) Lymph # (Auto) Dare # (Auto) Baso # (Auto) Seg Neutrophils % Seg Neuts % (Manual) 93.0 H Lymphocytes % (Manual) 3.0 L Monocytes % (Manual) Nucleated RBC % 1.0 H Seg Neutrophils # Seg Neutrophils # Man 21.9 H Lymphocytes # (Manual) 0.7 L Monocytes # (Manual) 0.9 H PT INR APTT Fibrinogen D-Dimer ABG pH POC ABG pCO2 POC ABG pO2 ABG pO2 ABG HCO3 ABG Base Excess ABG Hemoglobin ABG Oxyhemoglobin ABG Sodium ABG Potassium ABG Chloride ABG Glucose VBG pH Oxyhemoglobin Carboxyhemoglobin Sodium Potassium Chloride Carbon Dioxide BUN 28 H Creatinine 1.6 H Glucose 141 H POC Glucose 126 H Lactic Acid Calcium 7.6 L Ionized Calcium Magnesium AST 162 H ALT 103 H Alkaline Phosphatase Lactate Dehydrogenase NT-Pro-B Natriuret Pep Total Protein 5.4 L Albumin 2.7 L Arterial Blood Glucose Arterial Blood Ionized Calcium Urine WBC (Auto) Vancomycin Trough Phenytoin Crossmatch 10/08/20 10/08/20 10/08/20 11:20 16:05 20:14 WBC RBC Hgb Hct MCV MCH MCHC RDW Plt Count Lymph % (Auto) Dare % (Auto) Lymph # (Auto) Dare # (Auto) Baso # (Auto) Seg Neutrophils % Seg Neuts % (Manual) Lymphocytes % (Manual) Monocytes % (Manual) Nucleated RBC % Seg Neutrophils # Seg Neutrophils # Man Lymphocytes # (Manual) Monocytes # (Manual) PT INR APTT Fibrinogen D-Dimer ABG pH POC ABG pCO2 POC ABG pO2 ABG pO2 ABG HCO3 ABG Base Excess ABG Hemoglobin ABG Oxyhemoglobin ABG Sodium ABG Potassium ABG Chloride ABG Glucose VBG pH Oxyhemoglobin Carboxyhemoglobin Sodium Potassium Chloride Carbon Dioxide BUN Creatinine Glucose POC Glucose 127 H 172 H 147 H Lactic Acid Calcium Ionized Calcium Magnesium AST ALT Alkaline Phosphatase Lactate Dehydrogenase NT-Pro-B Natriuret Pep Total Protein Albumin Arterial Blood Glucose Arterial Blood Ionized Calcium Urine WBC (Auto) Vancomycin Trough Phenytoin Crossmatch 10/08/20 10/08/20 10/09/20 21:27 23:24 02:10 WBC RBC Hgb Hct MCV MCH MCHC RDW Plt Count Lymph % (Auto) Dare % (Auto) Lymph # (Auto) Dare # (Auto) Baso # (Auto) Seg Neutrophils % Seg Neuts % (Manual) Lymphocytes % (Manual) Monocytes % (Manual) Nucleated RBC % Seg Neutrophils # Seg Neutrophils # Man Lymphocytes # (Manual) Monocytes # (Manual) PT INR APTT Fibrinogen D-Dimer ABG pH POC ABG pCO2 POC ABG pO2 ABG pO2 ABG HCO3 ABG Base Excess ABG Hemoglobin ABG Oxyhemoglobin ABG Sodium ABG Potassium ABG Chloride ABG Glucose VBG pH Oxyhemoglobin Carboxyhemoglobin Sodium Potassium Chloride Carbon Dioxide BUN Creatinine Glucose POC Glucose 140 H 135 H 111 H Lactic Acid Calcium Ionized Calcium Magnesium AST ALT Alkaline Phosphatase Lactate Dehydrogenase NT-Pro-B Natriuret Pep Total Protein Albumin Arterial Blood Glucose Arterial Blood Ionized Calcium Urine WBC (Auto) Vancomycin Trough Phenytoin Crossmatch 10/09/20 10/09/20 10/09/20 03:44 04:39 05:46 WBC 19.7 H RBC 3.51 L Hgb Hct MCV MCH MCHC RDW 17.7 H Plt Count Lymph % (Auto) Dare % (Auto) Lymph # (Auto) Dare # (Auto) Baso # (Auto) Seg Neutrophils % Seg Neuts % (Manual) 86.0 H Lymphocytes % (Manual) 4.0 L Monocytes % (Manual) 9.0 H Nucleated RBC % Seg Neutrophils # Seg Neutrophils # Man 16.9 H Lymphocytes # (Manual) 0.8 L Monocytes # (Manual) 1.8 H PT INR APTT Fibrinogen D-Dimer ABG pH 7.513 H POC ABG pCO2 POC ABG pO2 33.6 L ABG pO2 ABG HCO3 ABG Base Excess ABG Hemoglobin 11.1 L ABG Oxyhemoglobin 70.2 L ABG Sodium ABG Potassium 3.2 L ABG Chloride 108.0 H ABG Glucose 108 H VBG pH Oxyhemoglobin Carboxyhemoglobin Sodium Potassium Chloride Carbon Dioxide BUN Creatinine Glucose POC Glucose 109 H Lactic Acid Calcium Ionized Calcium Magnesium AST ALT Alkaline Phosphatase Lactate Dehydrogenase NT-Pro-B Natriuret Pep Total Protein Albumin Arterial Blood Glucose 108 H Arterial Blood Ionized Calcium 4.3 L Urine WBC (Auto) Vancomycin Trough Phenytoin Crossmatch 10/09/20 10/10/20 10/10/20 05:46 04:00 04:00 WBC 18.4 H RBC Hgb Hct MCV MCH MCHC RDW 17.5 H Plt Count Lymph % (Auto) 9.8 L Dare % (Auto) 8.8 H Lymph # (Auto) Dare # (Auto) 1.6 H Baso # (Auto) Seg Neutrophils % 80.0 H Seg Neuts % (Manual) Lymphocytes % (Manual) Monocytes % (Manual) Nucleated RBC % Seg Neutrophils # 14.7 H Seg Neutrophils # Man Lymphocytes # (Manual) Monocytes # (Manual) PT INR APTT Fibrinogen D-Dimer ABG pH POC ABG pCO2 POC ABG pO2 ABG pO2 ABG HCO3 ABG Base Excess ABG Hemoglobin ABG Oxyhemoglobin ABG Sodium ABG Potassium ABG Chloride ABG Glucose VBG pH Oxyhemoglobin Carboxyhemoglobin Sodium 146 H Potassium 3.2 L 2.9 L* Chloride 108.9 H 112.6 H Carbon Dioxide BUN 34 H 28 H Creatinine 1.4 H 1.3 H Glucose 109 H 101 H POC Glucose Lactic Acid Calcium 7.6 L 7.8 L Ionized Calcium Magnesium AST 137 H 122 H ALT 99 H 81 H Alkaline Phosphatase Lactate Dehydrogenase NT-Pro-B Natriuret Pep Total Protein 5.1 L 5.2 L Albumin 2.6 L 2.7 L Arterial Blood Glucose Arterial Blood Ionized Calcium Urine WBC (Auto) Vancomycin Trough Phenytoin Crossmatch 10/10/20 10/10/20 10/11/20 04:42 09:50 00:44 WBC RBC Hgb Hct MCV MCH MCHC RDW Plt Count Lymph % (Auto) Dare % (Auto) Lymph # (Auto) Dare # (Auto) Baso # (Auto) Seg Neutrophils % Seg Neuts % (Manual) Lymphocytes % (Manual) Monocytes % (Manual) Nucleated RBC % Seg Neutrophils # Seg Neutrophils # Man Lymphocytes # (Manual) Monocytes # (Manual) PT INR APTT Fibrinogen D-Dimer ABG pH 7.534 H POC ABG pCO2 POC ABG pO2 ABG pO2 95.2 H ABG HCO3 ABG Base Excess ABG Hemoglobin 11.3 L ABG Oxyhemoglobin ABG Sodium ABG Potassium ABG Chloride ABG Glucose VBG pH Oxyhemoglobin Carboxyhemoglobin Sodium Potassium Chloride Carbon Dioxide BUN Creatinine Glucose POC Glucose 109 H 106 H Lactic Acid Calcium Ionized Calcium Magnesium AST ALT Alkaline Phosphatase Lactate Dehydrogenase NT-Pro-B Natriuret Pep Total Protein Albumin Arterial Blood Glucose Arterial Blood Ionized Calcium Urine WBC (Auto) Vancomycin Trough Phenytoin Crossmatch 10/11/20 10/11/20 10/11/20 04:00 04:00 06:08 WBC 27.0 H RBC Hgb Hct MCV MCH MCHC RDW 17.7 H Plt Count Lymph % (Auto) 6.3 L Dare % (Auto) Lymph # (Auto) Dare # (Auto) 1.5 H Baso # (Auto) Seg Neutrophils % 87.1 H Seg Neuts % (Manual) Lymphocytes % (Manual) Monocytes % (Manual) Nucleated RBC % Seg Neutrophils # 23.5 H Seg Neutrophils # Man Lymphocytes # (Manual) Monocytes # (Manual) PT INR APTT Fibrinogen D-Dimer ABG pH POC ABG pCO2 POC ABG pO2 ABG pO2 ABG HCO3 ABG Base Excess ABG Hemoglobin ABG Oxyhemoglobin ABG Sodium ABG Potassium ABG Chloride ABG Glucose VBG pH Oxyhemoglobin Carboxyhemoglobin Sodium Potassium 3.2 L Chloride 110.4 H Carbon Dioxide 19 L BUN 22 H Creatinine Glucose 116 H POC Glucose 107 H Lactic Acid Calcium 7.7 L Ionized Calcium Magnesium 1.60 L AST ALT Alkaline Phosphatase Lactate Dehydrogenase NT-Pro-B Natriuret Pep Total Protein Albumin Arterial Blood Glucose Arterial Blood Ionized Calcium Urine WBC (Auto) Vancomycin Trough Phenytoin Crossmatch 10/11/20 10/11/20 10/12/20 11:41 13:26 03:52 WBC RBC Hgb Hct MCV MCH MCHC RDW Plt Count Lymph % (Auto) Dare % (Auto) Lymph # (Auto) Dare # (Auto) Baso # (Auto) Seg Neutrophils % Seg Neuts % (Manual) Lymphocytes % (Manual) Monocytes % (Manual) Nucleated RBC % Seg Neutrophils # Seg Neutrophils # Man Lymphocytes # (Manual) Monocytes # (Manual) PT INR APTT Fibrinogen D-Dimer ABG pH POC ABG pCO2 POC ABG pO2 ABG pO2 ABG HCO3 ABG Base Excess ABG Hemoglobin ABG Oxyhemoglobin ABG Sodium ABG Potassium ABG Chloride ABG Glucose VBG pH Oxyhemoglobin Carboxyhemoglobin Sodium Potassium Chloride Carbon Dioxide BUN Creatinine Glucose POC Glucose 116 H 114 H Lactic Acid Calcium Ionized Calcium Magnesium AST ALT Alkaline Phosphatase Lactate Dehydrogenase NT-Pro-B Natriuret Pep Total Protein Albumin Arterial Blood Glucose Arterial Blood Ionized Calcium Urine WBC (Auto) 24.0 H Vancomycin Trough Phenytoin Crossmatch 10/12/20 10/12/20 10/12/20 04:24 14:47 21:33 WBC RBC Hgb Hct MCV MCH MCHC RDW Plt Count Lymph % (Auto) Dare % (Auto) Lymph # (Auto) Dare # (Auto) Baso # (Auto) Seg Neutrophils % Seg Neuts % (Manual) Lymphocytes % (Manual) Monocytes % (Manual) Nucleated RBC % Seg Neutrophils # Seg Neutrophils # Man Lymphocytes # (Manual) Monocytes # (Manual) PT INR APTT Fibrinogen D-Dimer ABG pH POC ABG pCO2 POC ABG pO2 ABG pO2 ABG HCO3 ABG Base Excess ABG Hemoglobin ABG Oxyhemoglobin ABG Sodium ABG Potassium ABG Chloride ABG Glucose VBG pH Oxyhemoglobin Carboxyhemoglobin Sodium Potassium Chloride 109.9 H Carbon Dioxide 13 L BUN 18 H Creatinine Glucose 119 H POC Glucose 107 H Lactic Acid Calcium 7.6 L Ionized Calcium Magnesium 1.60 L AST ALT Alkaline Phosphatase Lactate Dehydrogenase NT-Pro-B Natriuret Pep Total Protein Albumin Arterial Blood Glucose Arterial Blood Ionized Calcium Urine WBC (Auto) Vancomycin Trough Phenytoin Crossmatch 10/12/20 10/12/20 10/13/20 Unknown Unknown 07:00 WBC 24.3 H RBC 3.38 L Hgb 9.8 L Hct MCV MCH MCHC RDW 18.7 H Plt Count Lymph % (Auto) Dare % (Auto) Lymph # (Auto) Dare # (Auto) Baso # (Auto) Seg Neutrophils % Seg Neuts % (Manual) 93.5 H Lymphocytes % (Manual) 4.5 L Monocytes % (Manual) Nucleated RBC % Seg Neutrophils # Seg Neutrophils # Man 22.7 H Lymphocytes # (Manual) 1.1 L Monocytes # (Manual) PT INR APTT Fibrinogen D-Dimer ABG pH POC ABG pCO2 POC ABG pO2 ABG pO2 ABG HCO3 ABG Base Excess ABG Hemoglobin ABG Oxyhemoglobin ABG Sodium ABG Potassium ABG Chloride ABG Glucose VBG pH Oxyhemoglobin Carboxyhemoglobin Sodium 135 L D Potassium 3.1 L Chloride Carbon Dioxide 17 L BUN Creatinine Glucose 510 H* POC Glucose Lactic Acid Calcium 7.2 L Ionized Calcium Magnesium AST ALT Alkaline Phosphatase Lactate Dehydrogenase NT-Pro-B Natriuret Pep Total Protein Albumin Arterial Blood Glucose Arterial Blood Ionized Calcium Urine WBC (Auto) Vancomycin Trough Phenytoin 5.7 L Crossmatch 10/13/20 10/13/20 10/13/20 07:00 07:00 07:18 WBC 23.6 H RBC 3.26 L Hgb 9.4 L Hct 28.7 L MCV MCH MCHC RDW 18.3 H Plt Count Lymph % (Auto) Dare % (Auto) Lymph # (Auto) Dare # (Auto) Baso # (Auto) Seg Neutrophils % Seg Neuts % (Manual) Lymphocytes % (Manual) Monocytes % (Manual) Nucleated RBC % Seg Neutrophils # Seg Neutrophils # Man Lymphocytes # (Manual) Monocytes # (Manual) PT INR APTT Fibrinogen D-Dimer ABG pH 7.473 H POC ABG pCO2 20.7 L POC ABG pO2 137.9 H ABG pO2 ABG HCO3 ABG Base Excess ABG Hemoglobin 11.2 L ABG Oxyhemoglobin 98.3 H ABG Sodium 135.9 L ABG Potassium ABG Chloride 111.0 H ABG Glucose 109 H VBG pH Oxyhemoglobin Carboxyhemoglobin 0.3 L Sodium 135 L Potassium 3.5 L Chloride 109.1 H Carbon Dioxide 18 L BUN Creatinine Glucose POC Glucose Lactic Acid Calcium 7.3 L Ionized Calcium Magnesium 1.60 L AST ALT Alkaline Phosphatase Lactate Dehydrogenase NT-Pro-B Natriuret Pep Total Protein Albumin Arterial Blood Glucose 109 H Arterial Blood Ionized Calcium Urine WBC (Auto) Vancomycin Trough Phenytoin Crossmatch 10/14/20 10/14/20 10/15/20 04:00 04:00 05:50 WBC 28.6 H 23.2 H RBC 3.61 L 3.43 L Hgb 9.9 L Hct 30.0 L MCV MCH MCHC RDW 18.3 H 18.2 H Plt Count Lymph % (Auto) Dare % (Auto) Lymph # (Auto) Dare # (Auto) Baso # (Auto) Seg Neutrophils % Seg Neuts % (Manual) 88.0 H 90.0 H Lymphocytes % (Manual) 5.0 L 4.0 L Monocytes % (Manual) Nucleated RBC % Seg Neutrophils # Seg Neutrophils # Man 25.2 H 20.9 H Lymphocytes # (Manual) 0.9 L Monocytes # (Manual) 1.4 H 0.9 H PT INR APTT Fibrinogen D-Dimer ABG pH POC ABG pCO2 POC ABG pO2 ABG pO2 ABG HCO3 ABG Base Excess ABG Hemoglobin ABG Oxyhemoglobin ABG Sodium ABG Potassium ABG Chloride ABG Glucose VBG pH Oxyhemoglobin Carboxyhemoglobin Sodium Potassium Chloride 109.9 H Carbon Dioxide 17 L BUN Creatinine Glucose POC Glucose Lactic Acid Calcium Ionized Calcium Magnesium AST ALT Alkaline Phosphatase Lactate Dehydrogenase NT-Pro-B Natriuret Pep Total Protein Albumin Arterial Blood Glucose Arterial Blood Ionized Calcium Urine WBC (Auto) Vancomycin Trough Phenytoin Crossmatch 10/15/20 10/16/20 10/17/20 05:50 11:57 04:57 WBC 15.2 H RBC 3.43 L Hgb Hct MCV MCH MCHC RDW 18.1 H Plt Count Lymph % (Auto) Dare % (Auto) Lymph # (Auto) Dare # (Auto) Baso # (Auto) Seg Neutrophils % Seg Neuts % (Manual) Lymphocytes % (Manual) Monocytes % (Manual) Nucleated RBC % Seg Neutrophils # Seg Neutrophils # Man Lymphocytes # (Manual) Monocytes # (Manual) PT INR APTT Fibrinogen D-Dimer ABG pH POC ABG pCO2 POC ABG pO2 ABG pO2 ABG HCO3 ABG Base Excess ABG Hemoglobin ABG Oxyhemoglobin ABG Sodium ABG Potassium ABG Chloride ABG Glucose VBG pH Oxyhemoglobin Carboxyhemoglobin Sodium Potassium Chloride 110.3 H Carbon Dioxide 18 L BUN Creatinine Glucose 105 H POC Glucose 111 H Lactic Acid Calcium 8.3 L Ionized Calcium Magnesium AST ALT Alkaline Phosphatase Lactate Dehydrogenase NT-Pro-B Natriuret Pep Total Protein Albumin Arterial Blood Glucose Arterial Blood Ionized Calcium Urine WBC (Auto) Vancomycin Trough Phenytoin Crossmatch 10/17/20 10/17/20 10/18/20 05:25 21:16 01:31 WBC RBC Hgb Hct MCV MCH MCHC RDW Plt Count Lymph % (Auto) Dare % (Auto) Lymph # (Auto) Dare # (Auto) Baso # (Auto) Seg Neutrophils % Seg Neuts % (Manual) Lymphocytes % (Manual) Monocytes % (Manual) Nucleated RBC % Seg Neutrophils # Seg Neutrophils # Man Lymphocytes # (Manual) Monocytes # (Manual) PT INR APTT Fibrinogen D-Dimer ABG pH POC ABG pCO2 POC ABG pO2 ABG pO2 ABG HCO3 ABG Base Excess ABG Hemoglobin ABG Oxyhemoglobin ABG Sodium ABG Potassium ABG Chloride ABG Glucose VBG pH Oxyhemoglobin Carboxyhemoglobin Sodium Potassium Chloride Carbon Dioxide BUN Creatinine Glucose POC Glucose 107 H 106 H 119 H Lactic Acid Calcium Ionized Calcium Magnesium AST ALT Alkaline Phosphatase Lactate Dehydrogenase NT-Pro-B Natriuret Pep Total Protein Albumin Arterial Blood Glucose Arterial Blood Ionized Calcium Urine WBC (Auto) Vancomycin Trough Phenytoin Crossmatch 10/18/20 10/18/20 10/19/20 05:45 11:23 01:14 WBC RBC Hgb Hct MCV MCH MCHC RDW Plt Count Lymph % (Auto) Dare % (Auto) Lymph # (Auto) Dare # (Auto) Baso # (Auto) Seg Neutrophils % Seg Neuts % (Manual) Lymphocytes % (Manual) Monocytes % (Manual) Nucleated RBC % Seg Neutrophils # Seg Neutrophils # Man Lymphocytes # (Manual) Monocytes # (Manual) PT INR APTT Fibrinogen D-Dimer ABG pH POC ABG pCO2 POC ABG pO2 ABG pO2 ABG HCO3 ABG Base Excess ABG Hemoglobin ABG Oxyhemoglobin ABG Sodium ABG Potassium ABG Chloride ABG Glucose VBG pH Oxyhemoglobin Carboxyhemoglobin Sodium Potassium Chloride Carbon Dioxide BUN Creatinine Glucose POC Glucose 106 H 115 H 108 H Lactic Acid Calcium Ionized Calcium Magnesium AST ALT Alkaline Phosphatase Lactate Dehydrogenase NT-Pro-B Natriuret Pep Total Protein Albumin Arterial Blood Glucose Arterial Blood Ionized Calcium Urine WBC (Auto) Vancomycin Trough Phenytoin Crossmatch 10/19/20 10/20/20 10/20/20 09:57 05:40 07:59 WBC RBC Hgb Hct MCV MCH MCHC RDW Plt Count Lymph % (Auto) Dare % (Auto) Lymph # (Auto) Dare # (Auto) Baso # (Auto) Seg Neutrophils % Seg Neuts % (Manual) Lymphocytes % (Manual) Monocytes % (Manual) Nucleated RBC % Seg Neutrophils # Seg Neutrophils # Man Lymphocytes # (Manual) Monocytes # (Manual) PT INR APTT Fibrinogen D-Dimer ABG pH POC ABG pCO2 POC ABG pO2 ABG pO2 ABG HCO3 ABG Base Excess ABG Hemoglobin ABG Oxyhemoglobin ABG Sodium ABG Potassium ABG Chloride ABG Glucose VBG pH Oxyhemoglobin Carboxyhemoglobin Sodium Potassium Chloride Carbon Dioxide BUN Creatinine Glucose 106 H POC Glucose 122 H 109 H Lactic Acid Calcium Ionized Calcium Magnesium AST ALT Alkaline Phosphatase Lactate Dehydrogenase NT-Pro-B Natriuret Pep Total Protein Albumin Arterial Blood Glucose Arterial Blood Ionized Calcium Urine WBC (Auto) Vancomycin Trough Phenytoin Crossmatch 10/20/20 10/20/20 10/21/20 16:52 16:52 13:54 WBC 18.8 H 17.0 H RBC Hgb Hct MCV MCH MCHC RDW 17.7 H 17.8 H Plt Count 547 H 544 H Lymph % (Auto) 11.2 L Dare % (Auto) 8.1 H Lymph # (Auto) Dare # (Auto) 1.5 H Baso # (Auto) 0.2 H Seg Neutrophils % 78.8 H Seg Neuts % (Manual) Lymphocytes % (Manual) Monocytes % (Manual) Nucleated RBC % Seg Neutrophils # 14.8 H Seg Neutrophils # Man Lymphocytes # (Manual) Monocytes # (Manual) PT INR APTT Fibrinogen D-Dimer ABG pH POC ABG pCO2 POC ABG pO2 ABG pO2 ABG HCO3 ABG Base Excess ABG Hemoglobin ABG Oxyhemoglobin ABG Sodium ABG Potassium ABG Chloride ABG Glucose VBG pH Oxyhemoglobin Carboxyhemoglobin Sodium Potassium Chloride Carbon Dioxide BUN Creatinine Glucose POC Glucose Lactic Acid Calcium Ionized Calcium Magnesium AST ALT Alkaline Phosphatase Lactate Dehydrogenase NT-Pro-B Natriuret Pep Total Protein Albumin Arterial Blood Glucose Arterial Blood Ionized Calcium Urine WBC (Auto) Vancomycin Trough 34.5 H Phenytoin Crossmatch 10/21/20 10/22/20 10/23/20 13:54 07:26 05:34 WBC 18.7 H 13.0 H RBC 3.64 L 3.50 L Hgb Hct 30.0 L MCV MCH MCHC 35 H RDW 17.7 H 17.6 H Plt Count 502 H 503 H Lymph % (Auto) Dare % (Auto) Lymph # (Auto) Dare # (Auto) Baso # (Auto) Seg Neutrophils % Seg Neuts % (Manual) Lymphocytes % (Manual) Monocytes % (Manual) Nucleated RBC % Seg Neutrophils # Seg Neutrophils # Man Lymphocytes # (Manual) Monocytes # (Manual) PT INR APTT Fibrinogen D-Dimer ABG pH POC ABG pCO2 POC ABG pO2 ABG pO2 ABG HCO3 ABG Base Excess ABG Hemoglobin ABG Oxyhemoglobin ABG Sodium ABG Potassium ABG Chloride ABG Glucose VBG pH Oxyhemoglobin Carboxyhemoglobin Sodium 136 L Potassium Chloride Carbon Dioxide BUN Creatinine Glucose 120 H POC Glucose Lactic Acid Calcium Ionized Calcium Magnesium AST ALT Alkaline Phosphatase Lactate Dehydrogenase NT-Pro-B Natriuret Pep Total Protein Albumin Arterial Blood Glucose Arterial Blood Ionized Calcium Urine WBC (Auto) Vancomycin Trough Phenytoin Crossmatch 10/23/20 05:34 WBC RBC Hgb Hct MCV MCH MCHC RDW Plt Count Lymph % (Auto) Dare % (Auto) Lymph # (Auto) Dare # (Auto) Baso # (Auto) Seg Neutrophils % Seg Neuts % (Manual) Lymphocytes % (Manual) Monocytes % (Manual) Nucleated RBC % Seg Neutrophils # Seg Neutrophils # Man Lymphocytes # (Manual) Monocytes # (Manual) PT INR APTT Fibrinogen D-Dimer ABG pH POC ABG pCO2 POC ABG pO2 ABG pO2 ABG HCO3 ABG Base Excess ABG Hemoglobin ABG Oxyhemoglobin ABG Sodium ABG Potassium ABG Chloride ABG Glucose VBG pH Oxyhemoglobin Carboxyhemoglobin Sodium 135 L Potassium Chloride Carbon Dioxide BUN Creatinine Glucose 105 H POC Glucose Lactic Acid Calcium Ionized Calcium Magnesium AST ALT Alkaline Phosphatase Lactate Dehydrogenase NT-Pro-B Natriuret Pep Total Protein Albumin Arterial Blood Glucose Arterial Blood Ionized Calcium Urine WBC (Auto) Vancomycin Trough Phenytoin Crossmatch
[2020-10-26 10:43] LABS: ABG Base Excess -0.6 mmol/L (-2.0-3.0); ABG HCO3 22.5 mmol/L (20.0-26.0); ABG Methemoglobin 0.5 % (0.0-1.5); ABG Oxygen Saturation 98.2 % (95.0-99.0); ABG PCO2 32.4 mm Hg; ABG PH 7.459 pH Units (7.350-7.450); ABG PO2 112.2 mm Hg (80.0-90.0)
--- NOTE | 2020-10-26 12:09 | Progress Note ---
Assessment and Plan Cultures: 10/05/2020 Blood culture: no growth 10/11/2020 blood culture: No growth 10/11/2020 tracheal aspirate: Usual respiratory jaylan 10/14/2020 blood culture: Enterobacter, coag negative staph. Sensitivities in "scanned reports" 10/15/2020 blood culture: negative A/P: 30-year-old female with GERD, hypertension, seizure disorder was admitted to the hospital at 36 weeks with seizures. She became hypoxic and pulseless requiring CPR. Following emergent section, patient developed hemorrhage, DIC. She has been admitted to ICU, remains on the vent: #Fever, sepsis is likely secondary to bacteremia: ?PICC, no acute intra- abdominal source noted on CT. New PICC was placed after the most recent (negative) cultures were obtained. Repeat CT abdomen pelvis on 10/23/2020 showed surgical changes, no abscess identified. #Status post arrest 10/07/2020: Apparently had a brief code due to ?ET tube clot/plugging. #Initial shock, DIC/persistent fever: Secondary to hemorrhage, ?possible sepsis. Possible pneumonia versus fluid overload. ?Central fever v/s from VTE. Noted diarrhea ? Cdiff + #Acute kidney injury: resolved #Acute respiratory failure: remains on the vent. now has trach #Transaminitis: ?HELLP. Improving. #Preeclampsia # hemorrhage: Status post , status post supracervical hysterectomy. #Encephalopathy post cardiac arrest #C. difficile: Completed PO vancomycin Recs: -Ordered procalcitonin in AM. If <0.25 will stop antibiotics at that time. Julee Oneill MD [facility] ([facility]) O: [phone] F: [phone] Subjective Date of service: 10/26/20 Principal diagnosis: Eclampsia/HELLP Syndrome, ADOLPH, DIC; s/p , s/p supracervical hyst Interval history: Afebrile,white count slightly elevated at 13. Remains ventilated, eyes open. Still doesn't respond Objective - Exam Narrative Exam: Constitutional: awake, intubated, on the vent Head, Ears, Nose: Normocephalic, atraumatic. Eyes: Conjunctivae/corneas clear. No icterus.. Neck: trach Oral: MMM Cardiovascular: S1, S2 + Respiratory: AE fair bilaterally and equal GI: Soft, bowel sounds +. lower abdominal incision present, healing well Musculoskeletal: edematous extremities, no cyanosis. Skin: No rash or abscess Hem/Lymphatic: No palpable cervical or supraclavicular nodes. Psych: no agitation Neurological: awake, doesn't follow commands, but opens eyes,trached on the vent , exam limited - Constitutional Vitals: Vital Signs Temp Pulse Resp BP Pulse Ox 99.6 F 84 23 119/68 98 10/26/20 07:58 10/26/20 11:20 10/26/20 11:20 10/26/20 11:20 10/26/20 11:20 Temperature -Last 24 Hours Temperature 99.6 F Temperature 99.0 F Temperature 99.2 F Temperature 98.8 F Temperature 98.7 F - Labs CBC & Chem 7: 10/23/20 05:34 10/23/20 05:34 Labs: Abnormal lab results 10/26/20 Range/Units 10:30 ABG pH 7.459 H (7.350-7.450) pH Units ABG pO2 112.2 H (80.0-90.0) mm Hg
--- NOTE | 2020-10-26 13:23 | Vascular Lab Report ---
DUPLEX DOPPLER UPPER EXTREMITY VENOUS, LEFT INDICATION / CLINICAL INFORMATION: possible dvt. TECHNIQUE: Duplex doppler imaging was performed through the veins of the left upper extremity using venous compr ession and other maneuvers. COMPARISON: Doppler ultrasound dated 10/14/2020. FINDINGS: LEFT INTERNAL JUGULAR VEIN: Negative. LEFT SUBCLAVIAN VEIN: Negative. LEFT AXILLARY VEIN: Negative. LEFT BRACHIAL VEIN: Negative. LEFT FOREARM VEINS: Occlusive thrombus is seen within the left cephalic vein. LEFT BASILIC VEIN (SUPERFICIAL): Negative. ADDITIONAL FINDINGS: None. IMPRESSION: 1. No sonographic evidence for DVT. 2. Occlusive thrombus is seen within the left cephalic vein. Signer Name: Vikas Reddy MD Signed: 10/26/2020 1:19 PM Workstation Name: [email or web address] ([id number]
[2020-10-27] MEDS: metroNIDAZOLE/NS 500 MG/100 ML 500 MG/100 ML BAG IV SCH (04:25)
[2020-10-27] MEDS: CEFEPIME/NS 2 GM/100 ML 2 GM/100 ML BAG IV SCH (04:25)
[2020-10-27] MEDS: hydrALAZINE 25 MG TAB PO SCH ×3 (06:13→21:50)
--- NOTE | 2020-10-27 07:28 | Progress Note ---
Assessment and Plan - Patient Problems (1) Acute respiratory failure with hypoxia Current Visit: Yes Status: Acute Plan to address problem: Remains clinically stable and intubated Continue supportive care (2) Cardiac arrest Current Visit: Yes Status: Acute (3) DIC (disseminated intravascular coagulation) Current Visit: Yes Status: Acute (4) Encephalopathy Current Visit: Yes Status: Acute Subjective - Subjective Date of service: 10/27/20 Principal diagnosis: Eclampsia/HELLP Syndrome, ADOLPH, DIC; s/p , s/p supracervical hyst Interval history: 30y/o POD #25 s/p supracervical hysterectomy for eclampsia and DIC. Patient remains unresponsive. No significant changes in status. She remains afebrile. The patient has been unable to be weaned from the ventilator. Objective - Vital Signs Latest vital signs: Vital Signs Temp Pulse Pulse Resp BP Pulse Ox Pulse Ox 10/27/20 06:13 108 H 132/78 10/27/20 06:00 107 H 27 H 132/78 98 10/27/20 05:01 97 H 18 122/74 98 10/27/20 04:40 82 132/89 99 10/27/20 04:00 103 H 103 H 12 132/89 98 10/27/20 03:58 98.9 F 10/27/20 03:00 105 H 20 116/70 100 10/27/20 02:01 100 H 25 H 100 10/27/20 01:00 106 H 21 120/82 97 10/27/20 00:27 85 113/80 100 99 10/27/20 00:00 98.8 F 88 82 19 121/76 95 10/26/20 23:00 103 H 27 H 113/80 98 10/26/20 22:06 100 H 29 H 116/71 99 10/26/20 22:00 100 H 28 H 116/71 95 10/26/20 21:14 79 110/66 10/26/20 21:00 83 18 110/66 96 10/26/20 20:48 82 124/83 99 10/26/20 20:00 98.9 F 101 H 102 H 20 124/83 95 10/26/20 19:47 113 H 123/74 10/26/20 19:00 106 H 24 123/74 95 10/26/20 18:00 95 H 22 116/73 94 10/26/20 17:00 88 19 117/71 100 10/26/20 16:00 98.9 F 96 H 100 H 27 H 125/68 95 10/26/20 15:40 96 H 28 H 127/76 99 99 10/26/20 15:17 91 H 10/26/20 15:00 19 127/76 99 10/26/20 14:14 91 H 134/84 10/26/20 14:00 101 H 25 H 134/84 100 10/26/20 13:00 96 H 25 H 144/93 100 10/26/20 12:00 99.2 F 94 H 94 H 30 H 135/77 98 10/26/20 11:20 84 23 119/68 98 10/26/20 11:00 83 16 119/68 98 10/26/20 10:00 99 H 25 H 132/68 98 10/26/20 09:34 111 H 138/81 10/26/20 09:00 104 H 23 138/81 97 10/26/20 08:00 109 H 25 H 142/82 98 10/26/20 07:58 99.6 F 111 H 108 H 25 H 98 Intake and Output 10/26/20 10/27/20 10/27/20 22:59 06:59 14:59 Intake Total 920 865 Output Total 200 600 Balance 720 265 Intake: IV 200 CEFEPIME/NS 2 GM/100 ML 2 100 gm In 100 ml @ 200 mls/ hr IV Q8H ERINN Rx#: [id number] FLAGYL 500 MG/100 ML 500 100 mg In 100 ml @ 100 mls/hr IV Q8H ERINN Rx#:[id number] Intake, Free Water 200 200 Tube Feeding 520 665 Output: Urine 200 600 Indwelling Catheter 200 600 Other: Total, Intake Amount 65 75 Total, Output Amount 250 600 Voiding Method Indwelling Catheter Indwelling Catheter Weight 107.8 kg - Exam Incision: Present: dry, intact - Labs Labs: Abnormal lab results 10/26/20 Range/Units 10:30 ABG pH 7.459 H (7.350-7.450) pH Units ABG pO2 112.2 H (80.0-90.0) mm Hg
[2020-10-27 08:38] LABS: Hematocrit 28.8 % (30.3-42.9); Mean Corpuscular HGB Conc 35 % (30-34); Mean Corpuscular Volume 85 fl (79-97); Red Blood Count 3.38 M/mm3 (3.65-5.03); Red Cell Distribution Width 17.6 % (13.2-15.2)
[2020-10-27 08:39] LABS: Platelet Count 340 K/mm3 (140-440)
[2020-10-27 08:47] LABS: Alanine Aminotransferase 30 units/L (7-56); Albumin 3.8 g/dL (3.9-5); Blood Urea Nitrogen 20 mg/dL (7-17); Calcium 9.7 mg/dL (8.4-10.2); Hemolysis Index 4
--- NOTE | 2020-10-27 09:09 | Progress Note ---
Assessment and Plan Assessment and plan: 30 year old -Guyanese female CHE 10/25/20 at 36w5d who presents with seizures in triage on 10/02/20. Pt was not able to provide history but per pt's , she presented to the hospital to return a 24 hour urine specimen for analysis. She then suddenly reported that she did not feel good. She was taken to labor and delivery and shortly after arrival, she began seizing. During this time, a code met was called because the patient became hypoxic. She was then noted to be without a pulse. Chest compressions were started immediately, and the patient was emergently taken to the operating room for delivery of the fetus. Off note, This patient has had care at [facility] with comanagement by [facility] since 11 wks complicated by ADHD, morbid obesity, generalized anxiety disorder, panic attacks, chronic narcotic use, fibromyalgia, GERD, Irritable Bowel Syndrome, Migraines, h/o endometrial ablation and ovarian vein embolization, genital herpes, insomnia, LGA fetus, nausea and vomiting, polyhydramnios, quad screen positive for Down's Syndrome, and previous x 3. She is GBS negative. --Acute hypoxic respiratory failure: Tracheostomy on ventilatory support Nebulizers, oxygen titrate O2 sats to more than 90% Wean off ventilator as tolerated Pulmonary critical following --Sepsis; received antibiotics Continue to monitor off antibiotics ID following --Cardiac arrest; 10/07/2020 ,status post CPR --Acute metabolic encephalopathy --Acute hypoxic brain injury; Supportive care, closely monitor --Acute kidney injury; vasomotor nephropathy Resolved, renal function within normal limits, closely monitor --Shock; septic versus cardiogenic Requiring vasopressors, stable --DIC; sepsis, septic shock, resolved --History of preeclampsia; / hemorrhage Status post hysterectomy --History of C. difficile colitis; completed oral vancomycin --DVT/SVT and right upper extremity Very poor prognosis, Consults recommendations noted and appreciated We will closely monitor the patient and adjust management as needed Plan of care reviewed with the patient's nurse. 11:30: Pt brought to L&D triage for evaluation of possible labor. Pt accompanied by her spouse. Pt spouse poor historian; unable to obtain history- allergies at this time. Pt taken from registration to triage area via WC. Pt unresponsive, actively seizing with snorous respirations. supervisor cytology, Kassy, called and requesting assistance. 11:35: Multiple staff at bedside. Pt 02 sat 67% on nonrebreather, unable to read BP at this time. Yifan Theodore CRNA, at bedside for intubation and assistance with IV insertion. INT attempt by multiple RNs unsuccessful at this time. 11:42: Pt being bagged by [employer] FLOOR INSTALLER, 02% 79%. No pulse palpated, compressions started at this time; bharati young called and Dr. Newberry preparing OR for emergent c/s. 11:44: Continued compressions on stretcher while transporting pt to OR 1. Pt being bagged with jaw thrust manuever in place by KORIN Stringer student. 11:45: Arrival to OR 1. Dr. Newberry and Dr. Portillo present for emergent c/s. Bharati team arrived for continued care. patient revived and c/s done Patient has been bleeding from C/s site followed by supracervical hysterectomy for severe bleeding Patient transfused multiple units of PRBC, Patient in DIC. Transferred to the ICU 10/03. Patient seen and examined at bedside this morning. Patient is nonresponsive and mechanically ventilated. On pressors. Labs reviewed-has leukocytosis, anemia, thrombocytopenia, ADOLPH and lactic acidosis. Started on IV antibiotics to cover possible sepsis secondary to DIC. Hematology oncology recommendations appreciated-needs additional cryoprecipitate and FFP. Monitor D-dimer, fibrinogen and frequent labs. Nephrology consulted for lactic acidosis and ADOLPH. 10/04. Remains mechanically ventilated. Suches antibiotics. Labs shows improved acidosis - lactic acid 3.5. Hb drop noted. Getting transfused 2 units PRBCs. Platelet count is ~40k. Continue to monitor labs closely. Critical care team on board. 10/05; xray reviewed, concerning for multifocal infilrate, likely underlying Pneumonia, will add ID consult to assist with management of this critically ill patient, start tube feed, closely monitor renal system 10/06: Resumed care, remains on mechanical ventilation. No active bleeding, H&H stable. Continue to monitor CBC and BMP. Continue IV antibiotic for underlying pneumonia. Follow critical care and ID recommendation. 10/07: Remains on mechanical ventilation. No active bleeding, H&H stable. Critical care following, wean off ventilation as tolerated. 10/08: Patient had another cardiac arrest last night. Remains on mechanical ventilation, update family. Continue supportive care -poor prognosis 10/09: Called patient mother and discussed about patient care and management. Answered all question to best of my knowledge and family satisfaction. Patient remains on mechanical ventilation, cardiac arrest x2 so far. Critically sick, poor prognosis 10/10: remains on mechanical ventilation. h/h stable, no active bleeding. monitor CBC/BMP 10/11: WBC trended up with diarrhea, started on vancomycin po. remains on MV, off pressor, tolerating TF 10/12: remains on MV, off pressor, tolerating TF. called family for update but unable to reach, could not leave message as it was full. cont supportive care, wean off vent as tolerated. 10/13/2020; patient is on mechanical ventilation, tolerating tube feeding. Patient has labored breathing. Neuro was consulted and recommend MRI. Patient is on Precedex. Rectal tube in place. 10/14/2020; patient is on mechanical ventilation, Precedex. Patient had fever and blood culture ordered. Patient is on IV vancomycin per ID recommendation. Neuro consulted and recommend MRI. Continue to monitor. Prognosis is guarded. 10/15/2020; patient is on mechanical ventilation, Precedex. Patient had fever and blood culture ordered. Patient is on IV vancomycin per ID recommendation. Neuro consulted and recommend MRI. Continue to monitor. Prognosis is guarded. 12: Remains with C.DIFF and Bactermia, Poor prognosis. No purposeful movement. MRI and EEG discussed with Intensvisit, Continue aggressive BP control. 3: Blood pressure better controlled MRI done 10/15 shows mild improvement in edema. We will continue to monitor mother was at bedside yesterday. Nursing documentation trach and PEG discussed with the mother including goals of care. She is still in denial about the gravity of her daughters her condition which is understandable considering her age. Continue aggressive management at this time. Await for bacteremia to clear by ID before placing PICC line. 10/19: Patient for possible PEG and Trach, ID following, repeat cultures remain negative. Poor prognosis 10/20: Pt noted to DVT and SVT in the RUE, Vascular consult and will also obtain Hematology for possible considering changing in Anticoagulation. CONTINUE TO MONITOR H/H and PLT. Family updated by [employer]. Heparin gtt started. Will check CBC and BMP 10/21: Continue supporive care, Diarrhea now resolving, But still with persistent Fever, May need repeat CT/AP per ID, still with profused Encephalopathy 10/22: Continue supportive care, weaning, awaiting repeat Imaging. FOLLOW Fever curve. Enoxparin restarted 10/23: Continue supportive care, wean as tolerated. 10/24; Started on CPAP trial, discussed with pulmonary, still with diarrhea. 10/25: Patients seen and examined, no clinical changes, still with diarrhea. ?meaningful recovery. 10/26: Clinically unchanged, continue CPAP trial, Will discuss with Neurology about re-evaluation, ?Need for repeat CT head. ?PRESS considering initial elevated BP, now stable. The high probability of a clinically significant, sudden or life threatening deterioration of the [MULTIPLE ORGAN] system(s) required my full and direct at tention, intervention and personal management. The aggregate critical care time was [35] minutes. This time is in addition to time spent performing reported procedures but includes the following: [X] Data Review and interpretation [X] Patient assessment and monitoring of vital signs [X] Documentation [X] Medication orders and management History Interval history: I have seen and examined the patient in ICU this morning Patient's chart and medications reviewed Patient with tracheostomy on ventilatory support Critically ill looking Vital signs noted Hospitalist Physical - Constitutional Vitals: Temp Pulse Resp BP Pulse Ox 99.7 F H 108 H 27 H 132/78 98 10/27/20 08:00 10/27/20 06:13 10/27/20 06:00 10/27/20 06:13 10/27/20 06:00 General appearance: Present: mild distress, well-nourished, obese, other (Tracheostomy on vent) - EENT Eyes: Present: PERRL, EOM intact - Neck Neck: Present: supple, normal ROM - Respiratory Respiratory effort: normal Respiratory: bilateral: diminished, negative: rales, rhonchi, wheezing - Cardiovascular Rhythm: regular Heart Sounds: Present: S1 & S2 - Extremities Extremities: no ischemia, No edema - Abdominal General gastrointestinal: soft, non-tender, non-distended, normal bowel sounds - Integumentary Integumentary: Present: clear, warm - Psychiatric Psychiatric: other (Noncommunicative intubated on vent) - Neurologic Neurologic: other (Intubated on vent) HEART Score - HEART Score Age: < 45 Risk factors: 1-2 risk factors - Critical Actions Critical Actions: >7 pts:50-65% risk of adverse cardiac event. Early invasive measures Results - Labs CBC & Chem 7: 10/27/20 07:53 10/27/20 07:53 Labs: Laboratory Last Values WBC 13.6 K/mm3 (4.5-11.0) H 10/27/20 07:53 RBC 3.38 M/mm3 (3.65-5.03) L 10/27/20 07:53 Hgb 10.0 gm/dl (10.1-14.3) L 10/27/20 07:53 Hgb Comment See scanned result 10/04/20 Unknown Hct 28.8 % (30.3-42.9) L 10/27/20 07:53 MCV 85 fl (79-97) 10/27/20 07:53 MCH 30 pg (28-32) 10/27/20 07:53 MCHC 35 % (30-34) H 10/27/20 07:53 RDW 17.6 % (13.2-15.2) H 10/27/20 07:53 Plt Count 340 K/mm3 (140-440) 10/27/20 07:53 Lymph % (Auto) 11.2 % (13.4-35.0) L 10/20/20 16:52 Mcdonald % (Auto) 8.1 % (0.0-7.3) H 10/20/20 16:52 Eos % (Auto) 0.8 % (0.0-4.3) 10/20/20 16:52 Baso % (Auto) 1.1 % (0.0-1.8) 10/20/20 16:52 Lymph # (Auto) 2.1 K/mm3 (1.2-5.4) 10/20/20 16:52 Mcdonald # (Auto) 1.5 K/mm3 (0.0-0.8) H 10/20/20 16:52 Eos # (Auto) 0.2 K/mm3 (0.0-0.4) 10/20/20 16:52 Baso # (Auto) 0.2 K/mm3 (0.0-0.1) H 10/20/20 16:52 Add Manual Diff Complete 10/15/20 05:50 Total Counted 100 10/15/20 05:50 Seg Neutrophils % 78.8 % (40.0-70.0) H 10/20/20 16:52 Seg Neuts % (Manual) 90.0 % (40.0-70.0) H 10/15/20 05:50 Band Neutrophils % 2.0 % 10/15/20 05:50 Lymphocytes % (Manual) 4.0 % (13.4-35.0) L 10/15/20 05:50 Reactive Lymphs % (Man) 1.0 % 10/02/20 12:18 Monocytes % (Manual) 4.0 % (0.0-7.3) 10/15/20 05:50 Eosinophils % (Manual) 1.0 % (0.0-4.3) 10/14/20 04:00 Myelocytes % 2.0 % 10/02/20 13:05 Metamyelocytes % 1.0 % 10/14/20 04:00 Nucleated RBC % Not Reportable 10/15/20 05:50 Seg Neutrophils # 14.8 K/mm3 (1.8-7.7) H 10/20/20 16:52 Seg Neutrophils # Man 20.9 K/mm3 (1.8-7.7) H 10/15/20 05:50 Band Neutrophils # 0.5 K/mm3 10/15/20 05:50 Lymphocytes # (Manual) 0.9 K/mm3 (1.2-5.4) L 10/15/20 05:50 Abs React Lymphs (Man) 0.0 K/mm3 10/15/20 05:50 Monocytes # (Manual) 0.9 K/mm3 (0.0-0.8) H 10/15/20 05:50 Eosinophils # (Manual) 0.0 K/mm3 (0.0-0.4) 10/15/20 05:50 Basophils # (Manual) 0.0 K/mm3 (0.0-0.1) 10/15/20 05:50 Metamyelocytes # 0.0 K/mm3 10/15/20 05:50 Myelocytes # 0.0 K/mm3 10/15/20 05:50 Promyelocytes # 0.0 K/mm3 10/15/20 05:50 Blast Cells # 0.0 K/mm3 10/15/20 05:50 WBC Morphology Not Reportable 10/15/20 05:50 Hypersegmented Neuts Not Reportable 10/15/20 05:50 Hyposegmented Neuts Not Reportable 10/15/20 05:50 Hypogranular Neuts Not Reportable 10/15/20 05:50 Smudge Cells Not Reportable 10/15/20 05:50 Toxic Granulation Not Reportable 10/15/20 05:50 Toxic Vacuolation Not Reportable 10/15/20 05:50 Dohle Bodies Not Reportable 10/15/20 05:50 Pelger-Huet Anomaly Not Reportable 10/15/20 05:50 Ester Rods Not Reportable 10/15/20 05:50 Platelet Estimate Consistent w auto 10/15/20 05:50 Clumped Platelets Not Reportable 10/15/20 05:50 Plt Clumps, EDTA Not Reportable 10/15/20 05:50 Large Platelets Not Reportable 10/15/20 05:50 Giant Platelets Not Reportable 10/15/20 05:50 Platelet Satelliting Not Reportable 10/15/20 05:50 Plt Morphology Comment Not Reportable 10/15/20 05:50 RBC Morphology Not Reportable 10/15/20 05:50 Dimorphic RBCs Not Reportable 10/15/20 05:50 Polychromasia Not Reportable 10/15/20 05:50 Hypochromasia Few 10/15/20 05:50 Poikilocytosis Not Reportable 10/15/20 05:50 Anisocytosis 1+ 10/15/20 05:50 Microcytosis Not Reportable 10/15/20 05:50 Macrocytosis Not Reportable 10/15/20 05:50 Spherocytes Not Reportable 10/15/20 05:50 Pappenheimer Bodies Not Reportable 10/15/20 05:50 Sickle Cells Not Reportable 10/15/20 05:50 Target Cells Not Reportable 10/15/20 05:50 Tear Drop Cells Not Reportable 10/15/20 05:50 Ovalocytes Not Reportable 10/15/20 05:50 Stomatocytes Few 10/14/20 04:00 Helmet Cells Not Reportable 10/15/20 05:50 [place] Bodies Not Reportable 10/15/20 05:50 Metcalfe Rings Not Reportable 10/15/20 05:50 Antoine Cells Not Reportable 10/15/20 05:50 Bite Cells Not Reportable 10/15/20 05:50 Crenated Cell Not Reportable 10/15/20 05:50 Elliptocytes Not Reportable 10/15/20 05:50 Acanthocytes (Spur) Not Reportable 10/15/20 05:50 Rouleaux Not Reportable 10/15/20 05:50 Hemoglobin C Crystals Not Reportable 10/15/20 05:50 Schistocytes Not Reportable 10/15/20 05:50 Malaria parasites Not Reportable 10/15/20 05:50 Sickle Cell Solubility See scanned result 10/04/20 Unknown Hemoglobin A See scanned result 10/04/20 Unknown Hemoglobin A2 See scanned result 10/04/20 Unknown Hemoglobin A2 Prime See scanned result 10/04/20 Unknown Hemoglobin C See scanned result 10/04/20 Unknown Hemoglobin D See scanned result 10/04/20 Unknown Hemoglobin E See scanned result 10/04/20 Unknown Hgb F Diffential Stain See scanned result 10/04/20 Unknown Hemoglobin F Quant See scanned result 10/04/20 Unknown Hemoglobin G See scanned result 10/04/20 Unknown Hemoglobin S See scanned result 10/04/20 Unknown Hemoglobin [place] See scanned result 10/04/20 Unknown Hemoglobin [place] See scanned result 10/04/20 Unknown Hemoglobin Analilia See scanned result 10/04/20 Unknown Variant Hemoglobin See scanned result 10/04/20 Unknown Abnorm Hgb IEF Confirm See scanned result 10/04/20 Unknown Hemoglobin Interpret See scanned result 10/04/20 Unknown Hemoglobinopathy Note See scanned result 10/04/20 Unknown Sharad Bodies Not Reportable 10/15/20 05:50 Hem Pathologist Commnt No 10/15/20 05:50 PT 13.6 Sec. (12.2-14.9) 10/21/20 13:54 INR 1.06 (0.87-1.13) 10/21/20 13:54 APTT 31.6 Sec. (24.2-36.6) 10/03/20 00:40 Fibrinogen 336 mg/dl (211-480) 10/04/20 10:00 D-Dimer > 01727 ng/mlDDU (0-234) H 10/04/20 10:00 ABG pH 7.459 pH Units (7.350-7.450) H 10/26/20 10:30 POC ABG pCO2 20.7 mmHg (32.0-48.0) L 10/13/20 07:18 ABG pCO2 32.4 mm Hg 10/26/20 10:30 POC ABG pO2 137.9 mmHg (83-108) H 10/13/20 07:18 ABG pO2 112.2 mm Hg (80.0-90.0) H 10/26/20 10:30 POC ABG HCO3 14.8 10/13/20 07:18 ABG HCO3 22.5 mmol/L (20.0-26.0) 10/26/20 10:30 ABG O2 Saturation 98.2 % (95.0-99.0) 10/26/20 10:30 ABG O2 Content 18.5 (0.0-44) 10/26/20 10:30 POC ABG Base Excess -6.9 10/13/20 07:18 ABG Base Excess -0.6 mmol/L (-2.0-3.0) 10/26/20 10:30 ABG Hemoglobin 13.5 gm/dl (12.0-16.0) 10/26/20 10:30 ABG Oxyhemoglobin 98.3 (94-98) H 10/13/20 07:18 ABG Carboxyhemoglobin 1.3 % (0.0-5.0) 10/26/20 10:30 ABG Methemoglobin 0.5 % (0.0-1.5) 10/26/20 10:30 ABG Sodium 135.9 mmol/L (136.0-145.0) L 10/13/20 07:18 ABG Potassium 3.7 mmol/L (3.40-4.50) 10/13/20 07:18 ABG Chloride 111.0 mmol/L (98-107) H 10/13/20 07:18 ABG Glucose 109 mg/dL (65-95) H 10/13/20 07:18 VBG pH 6.949 (7.320-7.420) L* 10/02/20 Unknown Oxyhemoglobin 96.5 % (95.0-99.0) 10/26/20 10:30 Carboxyhemoglobin 0.3 (0.5-1.5) L 10/13/20 07:18 FiO2 25 % 10/26/20 10:30 Sodium 139 mmol/L (137-145) 10/27/20 07:53 Potassium 4.3 mmol/L (3.6-5.0) 10/27/20 07:53 Chloride 104.7 mmol/L (98-107) 10/27/20 07:53 Carbon Dioxide 23 mmol/L (22-30) 10/27/20 07:53 Anion Gap 16 mmol/L 10/27/20 07:53 BUN 20 mg/dL (7-17) H 10/27/20 07:53 Creatinine 0.6 mg/dL (0.6-1.2) 10/23/20 05:34 Estimated GFR > 60 ml/min 10/23/20 05:34 BUN/Creatinine Ratio 28 % 10/23/20 05:34 Glucose 112 mg/dL (65-100) H 10/27/20 07:53 POC Glucose 97 mg/dL (70-105) 10/27/20 05:24 Lactic Acid 1.90 mmol/L (0.7-2.0) 10/04/20 22:00 Uric Acid 7.5 mg/dL (3.5-7.6) 10/02/20 13:05 Calcium 9.7 mg/dL (8.4-10.2) 10/27/20 07:53 Ionized Calcium 4.4 mg/dL (4.8-5.6) L 10/07/20 21:00 Phosphorus 4.00 mg/dL (2.5-4.5) 10/20/20 07:59 Magnesium 1.80 mg/dL (1.7-2.3) 10/20/20 07:59 Total Bilirubin 0.40 mg/dL (0.1-1.2) 10/27/20 07:53 AST 83 units/L (5-40) H 10/27/20 07:53 ALT 30 units/L (7-56) 10/27/20 07:53 Alkaline Phosphatase 117 units/L (35-129) 10/27/20 07:53 Lactate Dehydrogenase 769 units/L (91-180) H 10/02/20 13:05 NT-Pro-B Natriuret Pep 2788 pg/mL (0-450) H 10/04/20 10:00 Total Protein 7.2 g/dL (6.3-8.2) 10/27/20 07:53 Albumin 3.8 g/dL (3.9-5) L 10/27/20 07:53 Albumin/Globulin Ratio 1.1 % 10/27/20 07:53 Procalcitonin 0.58 ng/mL (<0.15) 10/11/20 15:33 Arterial Blood Glucose 109 mg/dL (65-95) H 10/13/20 07:18 Arterial Blood Ionized Calcium 4.6 mg/dL (4.6-5.3) 10/13/20 07:18 Urine Color Yellow (Yellow) 10/11/20 13:26 Urine Turbidity Clear (Clear) 10/11/20 13:26 Urine pH 7.0 (5.0-7.0) 10/11/20 13:26 Ur Specific [place] 1.014 (1.003-1.030) 10/11/20 13:26 Urine Protein 100 mg/dl mg/dL (Negative) 10/11/20 13:26 Urine Glucose (UA) Neg mg/dL (Negative) 10/11/20 13:26 Urine Ketones Neg mg/dL (Negative) 10/11/20 13:26 Urine Blood Mod (Negative) 10/11/20 13:26 Urine Nitrite Neg (Negative) 10/11/20 13:26 Urine Bilirubin Neg (Negative) 10/11/20 13:26 Urine Urobilinogen < 2.0 mg/dL (<2.0) 10/11/20 13:26 Ur Leukocyte Esterase Sm (Negative) 10/11/20 13:26 Urine WBC (Auto) 24.0 /HPF (0.0-6.0) H 10/11/20 13:26 Urine RBC (Auto) 59.0 /HPF (0.0-6.0) 10/11/20 13:26 Urine Bacteria (Auto) 1+ /HPF (Negative) 10/11/20 13:26 Urine Mucus Few /HPF 10/11/20 13:26 Vancomycin Trough 12.6 ug/mL (5.0-20.0) 10/21/20 13:54 Random Vancomycin 10.7 ug/mL (0-40.0) 10/16/20 13:09 Phenytoin 5.7 ug/mL (10.0-20.0) L 10/13/20 07:00 C. difficile Tox (PCR) Positive (Negative) 10/16/20 10:22 Coronavirus (PCR) Negative (Negative) 10/08/20 14:15 Blood Type O POSITIVE 10/02/20 12:50 Antibody Screen Negative 10/02/20 12:50 Crossmatch See Detail 10/02/20 12:50 - Diagnostic Impressions Diagnostic Impressions: Echocardiogram 10/03/20 13:42 Transthoracic Echocardiogram Indication: S/P Cardiac Arrest R/O Cardiomyopathy BP: 133/71 Conclusions *Global left ventricular systolic function is normal. *The estimated ejection fraction is 60-65%. *There is trace of mitral regurgitation. *The right 0heart chambers are both slightly dilated. *There is mild tricuspid regurgitation. *There is mild-moderate pulmonary hypertension. *The right ventricular systolic pressure is calculated at 44 mmHg. *The study quality is technically difficult. Findings Procedure Info: The study quality is technically difficult. The study is technically limited due to patient body habitus. The study was technically limited due to the patient's inability to lay in the left lateral decubitus position. Left Ventricle: The left ventricular chamber size is normal. There is no left ventricular hypertrophy. Global left ventricular systolic function is normal. The estimated ejection fraction is 60-65%. Left Atrium: The left atrial chamber size is normal. Right Ventricle: The right ventricle is slightly dilated. Right Atrium: The right atrium is mildly dilated. Aortic Valve: The aortic valve leaflets are mildly thickened. There is no evidence of aortic regurgitation. There is no evidence of aortic stenosis. Mitral Valve: The mitral valve leaflets are mildly thickened. There is trace of mitral regurgitation. There is no evidence of mitral stenosis. Tricuspid Valve: There is mild tricuspid regurgitation. The right ventricular systolic pressure is calculated at 44 mmHg. There is evidence of mild pulmonary hypertension. Pulmonic Valve: There is trace pulmonic regurgitation. Pericardium: There is no pericardial effusion. Aorta: There is no dilatation of the ascending aorta. There is no dilatation of the aortic root. Venous: The inferior vena cava is dilated. Measurements Chambers 2D Name Value Normal Range IVSd (2D) 1 cm (0.6 - 1.1) LVPWd (2D) 1.01 cm (0.6 - 1.1) LVIDd (2D) 4.58 cm (3.7 - 5.6) LVIDs (2D) 3.17 cm (2 - 3.8) LV FS (2D) 30.93 % - EF Teichholz (2D) 58.66 % - Ao root diameter (2D) 2.94 cm (2 - 3.7) Volumes/Mass Name Value Normal Range LA ESV SP 4CH (A/L) 72.82 ml - LA ESV SP 2CH (A/L) 66.86 ml - LA ESV BP (A/L) 74.49 ml - LA ESV SP 4CH (MOD) 71.03 ml - LA ESV SP 2CH (MOD) 64.3 ml - LV EDV SP 4CH (MOD) 98.82 ml - LV ESV SP 4CH (MOD) 24.8 ml - EF SP 4CH (MOD) 74.9 % - LV EDV SP 2CH (MOD) 86.1 ml - LV ESV SP 2CH (MOD) 36.93 ml - EF SP 2CH (MOD) 57.11 % - LV EDV BP 94.4 ml - LV ESV BP 32.66 ml - BP EF (MOD) 65.4 % - Diastolic/Systolic Function Name Value Normal Range MV E-wave Vmax 1.04 m/sec - MV deceleration time 160.46 msec - MV A-wave Vmax 0.92 m/sec - MV E:A ratio 1.14 ratio - Aortic Valve Name Value Normal Range AV Vmax 2.12 m/sec - AV VTI 22.37 cm - AV peak gradient 17.95 mmHg - AV mean gradient 7.29 mmHg - LVOT diameter 2.01 cm - LVOT Vmax 1.8 m/sec - LVOT VTI 27.17 cm - LVOT peak gradient 12.91 mmHg - LVOT mean gradient 6.83 mmHg - SV LVOT 86.42 ml - ANITA (continuity Vmax) 2.7 cm2 - ANITA (continuity VTI) 3.86 cm2 - Ascending Ao 3.18 cm - Tricuspid Valve Name Value Normal Range TV E-wave Vmax 0.88 m/sec - TR Vmax 3.01 m/sec - TR peak gradient 36.27 mmHg - RAP 8 mmHg - RVSP 44 mmHg - IVC diameter 2.65 cm (1.2 - 2.3) Pulmonic Valve/Qp:Qs Name Value Normal Range PV Vmax 1.22 m/sec - PV peak gradient 5.91 mmHg - RVOT Vmax 0.87 m/sec - RVOT VTI 13.32 cm - RVOT peak gradient 3 mmHg - PV acceleration time 110.37 msec - [place]/IV: Voiding Method Indwelling Catheter IV Catheter Type [Right Foot] INT / Saline Lock IV Catheter Type [Left Forearm Peripheral IV ] IV Catheter Type [Left Wrist] INT / Saline Lock IV Catheter Type [Right Hand] INT / Saline Lock IV Catheter Type [Right INT / Saline Lock Antecubital] IV Catheter Type [Right Upper INT / Saline Lock arm] IV Catheter Type [Left Triple Lumen Cath Internal Jugular] IV Catheter Type [Left Hand] Peripheral IV IV Catheter Type [Left Peripheral IV Antecubital] Active Medications - Current Medications Current Medications: Generic Name Dose Route Start Last Admin Trade Name Freq PRN Reason Stop Dose Admin Acetaminophen 650 mg 10/05/20 16:34 10/16/20 00:13 Acetaminophen 325 Mg/10.15 Ml Oral Liqd Unit Dose FEEDTUBE 650 mg Q6H PRN Administration Non Cardiac Pain or Temp>100.5 Lipase/Protease/Amylase 1 each 10/05/20 11:09 Lipase 10,500/Protease 25,000/Amylase 43,750 (Units) Dr Barakat FEEDTUBE PRN PRN For Clogged Feeding Tube Enoxaparin Sodium 40 mg 10/22/20 10:00 10/26/20 09:34 Enoxaparin 40 Mg/0.4 Ml Inj SUB-Q 40 mg DAILY ERINN Administration Protocol Famotidine 20 mg 10/07/20 10:00 10/26/20 21:14 Famotidine 20 Mg Tab PO 20 mg BID ERINN Administration Furosemide 40 mg 10/17/20 10:00 10/26/20 09:33 Furosemide 40 Mg Tab PO 40 mg QDAY ERINN Administration Glycopyrrolate 1 mg 10/20/20 10:00 10/26/20 21:14 Glycopyrrolate 1 Mg Tab PO 1 mg BID ERINN Administration Hydralazine HCl 20 mg 10/07/20 11:49 10/17/20 07:20 Hydralazine 20 Mg/1 Ml Inj IV 20 mg Q6H PRN Administration SBP >170 Hydralazine HCl 50 mg 10/17/20 09:00 10/27/20 06:13 Hydralazine 25 Mg Tab PO 50 mg Q8HR ERINN Administration Hydrophilic Ointment 1 applic 12/20/20 06:55 Lip Therapy Vaseline TP Q2HR PRN Dry Lips Dextrose 1,000 mls @ 75 mls/hr 10/13/20 11:00 10/26/20 03:31 D10w IV 75 mls/hr DIRECT ERINN Administration Cefepime HCl 2 gm in 100 mls @ 200 mls/hr 10/22/20 13:00 10/27/20 04:25 Cefepime/Ns 2 Gm/100 Ml IV 200 mls/hr Q8H ERINN Administration Protocol Metronidazole 500 mg in 100 mls @ 100 mls/hr 10/22/20 13:00 10/27/20 04:25 Flagyl 500 Mg/100 Ml IV 100 mls/hr Q8H ERINN Administration Protocol Labetalol HCl 300 mg 10/17/20 09:00 10/26/20 19:47 Labetalol 100 Mg Tab PO 300 mg TID ERINN Administration Multi-Ingred Cream/Lotion/Oil/Oint 1 applic 10/04/20 06:55 Mineral Oil/Petrolatum, White Ophth Oint 3.5 Gm OU Q4HR PRN Dry Eye(s) Simple Syrup 15 ml 10/05/20 11:09 Simple Syrup 15 Ml FEEDTUBE PRN PRN Hypoglycemia Simple Syrup 30 ml 10/05/20 11:09 Simple Syrup 15 Ml FEEDTUBE PRN PRN Hypoglycemia Sodium Bicarbonate 325 mg 10/05/20 11:09 Sodium Bicarbonate 325 Mg Tab FEEDTUBE PRN PRN For Clogged Feeding Tube Sodium Bicarbonate 1,300 mg 10/13/20 14:00 10/26/20 19:47 Sodium Bicarbonate 650 Mg Tab PO 1,300 mg TID ERINN Administration Topiramate 50 mg 10/05/20 11:00 10/26/20 21:18 Topiramate Tab 25 Mg Tab PO 50 mg Q12HR ERINN Administration Nutrition/Malnutrition Assess - Dietary Evaluation Nutrition/Malnutrition Findings: Nutrition Notes Start: 10/04/20 11:13 Freq: Status: Active Protocol: Document 10/26/20 11:49 MK (Rec: 10/26/20 11:59 MK [id number]) Nutrition Notes Need for Assessment generated from: MD Order Initial or Follow up Reassessment Current Diagnosis Acute Kidney Injury, Respiratory Failure Other Pertinent Diagnosis Cardiac arrest, s/p c-sectuion and supracervial hysterectomy Current Diet Vital AF 1.2 at 65ml/hr Labs/Tests Reviewed Pertinent Medications Lasix D10w at 75 ml/hr Height 5 ft 8 in Weight 107.6 kg [place] Body Weight (kg) 63.63 BMI 36.1 Weight change and time frame Wt change noted Weight Status Morbidly Obese Subjective/Other Information Discussed with MD about pt BG. Pt continues to need D10w. Will change to high CHO formula. Percent of energy/protein needs met: 100%/74% Burn Absent Trauma Absent GI Symptoms None Food Allergy Yes Current % PO Negligible Minimum of two criteria No Fluid Accumulation Mild (non-severe) #1 Nutrition Diagnosis Inadequate oral intake Diagnosis Progress(for reassessment Continues documentation) Is patient on ventilator? Yes Is Patient Ambulatory and/or Out of Bed No REE-([place]-confined to bed) 2203.176 Kcal/Kg value to use for calculation 16 Approximate Energy Requirements Using 1722 kcal/Kg Calculation Used for Recommendations Kcal/kg Additional Notes Protein needs are up to 159g ( up to 2.5g/kg) Fluid needs are 1ml/kcal Nutrition Intervention Change Diet Order: Change TF Nutrition Support: Promote at 75 ml/hr. Flush 50ml q4h. Kcal 1,800 Protein (gm) 112 Fluid (mL) 1,510 Goal #1 New TF start/tolerance Anticipated Discharge Needs: Unable to determine at this time Follow-Up By: 10/28/20 Additional Comments F/U for TF tolerance
[2020-10-27 09:15] LABS: BUN/Creatinine Ratio 33
[2020-10-27] MEDS: FUROSEMIDE 40 MG TAB PO SCH (09:44)
[2020-10-27] MEDS: ENOXAPARIN 40 MG/0.4 ML INJ SUB-Q SCH (09:44)
[2020-10-27] MEDS: SODIUM BICARBONATE 650 MG TAB PO SCH ×3 (09:44→19:39)
[2020-10-27] MEDS: FAMOTIDINE 20 MG TAB PO SCH ×2 (09:44→21:50)
[2020-10-27] MEDS: GLYCOPYRROLATE 1 MG TAB PO SCH ×2 (09:45→21:50)
[2020-10-27] MEDS: TOPIRAMATE TAB 25 MG TAB PO SCH ×2 (09:45→21:50)
--- NOTE | 2020-10-27 11:51 | Progress Note ---
Assessment and Plan 30 y/o female with Eclampsia, s/p emergent section with DIC, acute respiratory failure and worsening renal function. 10/27/20: Continue daily T-piece trials for as long as tolerated. Ok with resting on either PSV or full rate if needed at night but need to strengthen her respiratory muscles. PT/OT if possible. Will transition to step down prior to going to floor to insure stability. 10/26/20: Will obtain ABG today. If good, will attempt on T-piece later. Continue PT/OT. Will speak with CM about possiblity of LTACH or nursing facility that can take trached patients. 10/23/20: Daily PSV trials for as long as patient will tolerate. Needs PT/OT consult for passive range of motion. 10/22/20: Will start prolonged PSV trials. Attempt to wean from vent and then transition to floor to see if mental status improves. Continue tube feeds. 10/21/20: Trach and peg placed. No sedation. Restart Lovenox for Upper Ext DVT. Restart feeds when surgery states ok to use PEG. C. Diff treatment per ID. Guarded prognosis. Will be a medical terminologist wean. Hopeful to wean off vent at least and then can transfer to floor. 10/20/20: NPO after midnight. DVT study just read from 10/14 on yesterday showing upper ext DVT. Started on Lovenox but need to hold therapy until after surgery. could be source of fevers. No sedation. 10/19/20: Stable BP. Will meet/talk with family at noon over the phone with myself and case management. Need to discuss goals of care and what next steps would be. Patient would need trach and peg and transfer to LTACH if family ok with this. Follow up speciation of GNR's in blood. Has been on Cefepime. Continues therapy for C. Diff. Guarded prognosis. Continue daily PSV trials but not ready for extubation secondary to mental state. 10/18/20: Blood pressure is much better with the addition of meds started on yesterday. Need to have family meeting jesica in regards to goals of care. [place] nue Daily PSV trials but not ready for extubation. Continue therapy for C. Diff per ID. 10/17/20: CT scan was of no help in regards to fevers. C. Diff is positive and BP now is more uncontrolled despite increasing labetalol. Today will increase to 300 TID. Added TID Hydralazine and added PO lasix given her mild pulmonary htn seen on echo. Spoke with mother over the phone and she requests to come see the patient. Given current circumstances, will allow her to come briefly today and then will speak with her at the bedside. No neurology is available at the time and suspect these will be the majority of her questions. Tolerated PSV briefly yesterday and will do again today but not for extended periods as given her mental state she is not a candidate for extubation. I will also ask the mother about medical terminologist care (trach and peg) when she comes today. Overall prognosis is guarded to poor. If oral meds cannot regulate blood pressure, may need Cardene drip. Continue therapy for C. Diff per ID. 10/16/20: Needs a different consent for CT of abdomen and pelvis. I have signed the one in the chart. The nurse who obtained the first consent did obtain consent for contrast, it just wasn't listed on the that consent. Await neurology input on EEG vs MRI findings. Patient has now been intubated 14 days. Need to have family meeting to discuss goals of care but I suspect family will want to hear from Neurology as well. Tolerating PSV trials but will only do briefly as patient is not a candidate for extubation today. Will increase labetalol to 200 TID based on MRI report. Overall prognosis is guarded to poor. Subjective Date of service: 10/27/20 Principal diagnosis: Eclampsia/HELLP Syndrome, ADOLPH, DIC; s/p , s/p supracervical hyst Interval history: Did T-piece the majority the day yesterday. Got fatigued so placed back on PSV then placed on rate overnight. This am back on T-piece. Still unresponsive but eyes open. Objective Vital Signs - 12hr 10/27/20 10/27/20 10/27/20 00:00 00:27 01:00 Temperature 98.8 F Pulse Rate 88 85 106 H Pulse Rate [ 82 From Monitor] Respiratory 19 21 Rate Blood Pressure 121/76 113/80 120/82 O2 Sat by Pulse 95 100 97 Oximetry O2 Sat by Pulse 99 Oximetry [ Assessment] 10/27/20 10/27/20 10/27/20 02:01 03:00 03:58 Temperature 98.9 F Pulse Rate 100 H 105 H Pulse Rate [ From Monitor] Respiratory 25 H 20 Rate Blood Pressure 116/70 O2 Sat by Pulse 100 100 Oximetry O2 Sat by Pulse Oximetry [ Assessment] 10/27/20 10/27/20 10/27/20 04:00 04:40 05:01 Temperature Pulse Rate 103 H 82 97 H Pulse Rate [ 103 H From Monitor] Respiratory 12 18 Rate Blood Pressure 132/89 132/89 122/74 O2 Sat by Pulse 98 99 98 Oximetry O2 Sat by Pulse Oximetry [ Assessment] 10/27/20 10/27/20 10/27/20 06:00 06:13 07:00 Temperature Pulse Rate 107 H 108 H 101 H Pulse Rate [ From Monitor] Respiratory 27 H 21 Rate Blood Pressure 132/78 132/78 118/71 O2 Sat by Pulse 98 97 Oximetry O2 Sat by Pulse Oximetry [ Assessment] 10/27/20 10/27/20 10/27/20 08:00 09:00 09:05 Temperature 99.7 F H Pulse Rate 109 H 105 H 105 H Pulse Rate [ From Monitor] Respiratory 27 H 24 25 H Rate Blood Pressure 132/72 116/74 116/74 O2 Sat by Pulse 99 97 100 Oximetry O2 Sat by Pulse Oximetry [ Assessment] 10/27/20 10/27/20 10/27/20 09:07 09:44 10:00 Temperature Pulse Rate 110 H 101 H Pulse Rate [ From Monitor] Respiratory 19 Rate Blood Pressure 116/74 121/82 O2 Sat by Pulse 99 99 Oximetry O2 Sat by Pulse Oximetry [ Assessment] 10/27/20 10/27/20 11:00 11:22 Temperature Pulse Rate 87 89 Pulse Rate [ From Monitor] Respiratory 22 20 Rate Blood Pressure 121/82 117/74 O2 Sat by Pulse 99 100 Oximetry O2 Sat by Pulse Oximetry [ Assessment] Constitutional: comatose, other (critically ill on ventilator trach) Eyes: non-icteric ENT: oropharynx moist, other (orally intubated and not sedated) Neck: other (large in cirumference) Effort: normal Ascultation: Bilateral: clear, diminished breath sounds, other (coarse BS bilaterally w/ mild faint wheezes) Percussion: Bilateral: not dull Cardiovascular: regular rate and rhythm, other (no mrg) Gastrointestinal: normoactive bowel sounds, soft, other (post surgical changes with drain on the left side) Extremities: no cyanosis, pink and warm, anasarca Neurologic: other (unresponsive, not following commands, not tracking) Psychiatric: other (unable to assess) CBC and BMP: 10/27/20 07:53 10/27/20 07:53 ABG, PT/INR, D-dimer: ABG ABG pH 7.459 pH Units (7.350-7.450) H 10/26/20 10:30 POC ABG pCO2 20.7 mmHg (32.0-48.0) L 10/13/20 07:18 ABG pCO2 32.4 mm Hg 10/26/20 10:30 POC ABG pO2 137.9 mmHg (83-108) H 10/13/20 07:18 ABG pO2 112.2 mm Hg (80.0-90.0) H 10/26/20 10:30 POC ABG HCO3 14.8 10/13/20 07:18 ABG O2 Saturation 98.2 % (95.0-99.0) 10/26/20 10:30 PT/INR, D-dimer PT 13.6 Sec. (12.2-14.9) 10/21/20 13:54 INR 1.06 (0.87-1.13) 10/21/20 13:54 D-Dimer > 17050 ng/mlDDU (0-234) H 10/04/20 10:00 Abnormal lab findings: Abnormal Labs 10/02/20 10/02/20 10/02/20 12:03 12:18 12:18 WBC 14.9 H RBC Hgb 9.1 L Hct MCV MCH 22 L MCHC 28 L RDW 17.6 H Plt Count 102 L Lymph % (Auto) [place] % (Auto) Lymph # (Auto) [place] # (Auto) Baso # (Auto) Seg Neutrophils % Seg Neuts % (Manual) 36.0 L Lymphocytes % (Manual) 49.0 H Monocytes % (Manual) Nucleated RBC % 6.0 H Seg Neutrophils # Seg Neutrophils # Man Lymphocytes # (Manual) 7.3 H Monocytes # (Manual) PT INR APTT Fibrinogen D-Dimer ABG pH POC ABG pCO2 POC ABG pO2 ABG pO2 ABG HCO3 ABG Base Excess ABG Hemoglobin ABG Oxyhemoglobin ABG Sodium ABG Potassium ABG Chloride ABG Glucose VBG pH Oxyhemoglobin Carboxyhemoglobin Sodium 134 L Potassium Chloride Carbon Dioxide 12 L BUN 6 L Creatinine Glucose 390 H POC Glucose 451 H Lactic Acid Calcium Ionized Calcium Magnesium AST 135 H ALT 85 H Alkaline Phosphatase 172 H Lactate Dehydrogenase 641 H NT-Pro-B Natriuret Pep Total Protein 5.4 L Albumin 2.3 L Arterial Blood Glucose Arterial Blood Ionized Calcium Urine WBC (Auto) Vancomycin Trough Phenytoin Crossmatch 10/02/20 10/02/20 10/02/20 12:50 13:05 13:05 WBC 38.6 H RBC Hgb 8.9 L Hct 29.0 L MCV 73 L MCH 22 L MCHC RDW 17.2 H Plt Count Lymph % (Auto) [place] % (Auto) Lymph # (Auto) [place] # (Auto) Baso # (Auto) Seg Neutrophils % Seg Neuts % (Manual) Lymphocytes % (Manual) Monocytes % (Manual) Nucleated RBC % 2.0 H Seg Neutrophils # Seg Neutrophils # Man 20.1 H Lymphocytes # (Manual) 10.4 H Monocytes # (Manual) 2.3 H PT INR APTT Fibrinogen D-Dimer ABG pH POC ABG pCO2 POC ABG pO2 ABG pO2 ABG HCO3 ABG Base Excess ABG Hemoglobin ABG Oxyhemoglobin ABG Sodium ABG Potassium ABG Chloride ABG Glucose VBG pH Oxyhemoglobin Carboxyhemoglobin Sodium Potassium Chloride Carbon Dioxide BUN Creatinine Glucose POC Glucose Lactic Acid Calcium Ionized Calcium Magnesium AST 184 H ALT 113 H Alkaline Phosphatase Lactate Dehydrogenase 769 H NT-Pro-B Natriuret Pep Total Protein Albumin Arterial Blood Glucose Arterial Blood Ionized Calcium Urine WBC (Auto) Vancomycin Trough Phenytoin Crossmatch See Detail 10/02/20 10/02/20 10/02/20 16:25 16:35 16:35 WBC RBC Hgb Hct MCV MCH MCHC RDW Plt Count Lymph % (Auto) [place] % (Auto) Lymph # (Auto) [place] # (Auto) Baso # (Auto) Seg Neutrophils % Seg Neuts % (Manual) Lymphocytes % (Manual) Monocytes % (Manual) Nucleated RBC % Seg Neutrophils # Seg Neutrophils # Man Lymphocytes # (Manual) Monocytes # (Manual) PT INR APTT Fibrinogen D-Dimer ABG pH 7.031 L* POC ABG pCO2 POC ABG pO2 ABG pO2 116.8 H ABG HCO3 12.7 L ABG Base Excess -16.9 L ABG Hemoglobin 7.8 L ABG Oxyhemoglobin ABG Sodium ABG Potassium ABG Chloride ABG Glucose VBG pH Oxyhemoglobin 94.9 L Carboxyhemoglobin Sodium Potassium Chloride Carbon Dioxide BUN Creatinine Glucose 403 H POC Glucose Lactic Acid 11.40 H* Calcium 6.3 L D Ionized Calcium Magnesium AST 70 H ALT Alkaline Phosphatase Lactate Dehydrogenase NT-Pro-B Natriuret Pep Total Protein 1.9 L D Albumin 1.2 L Arterial Blood Glucose Arterial Blood Ionized Calcium Urine WBC (Auto) Vancomycin Trough Phenytoin Crossmatch 10/02/20 10/02/20 10/02/20 18:18 18:18 22:30 WBC 11.5 H RBC 2.06 L Hgb 5.5 L* D Hct 17.3 L* D MCV MCH 27 L MCHC RDW 19.5 H Plt Count 60 L Lymph % (Auto) [place] % (Auto) Lymph # (Auto) [place] # (Auto) Baso # (Auto) Seg Neutrophils % Seg Neuts % (Manual) Lymphocytes % (Manual) 8.0 L Monocytes % (Manual) 8.0 H Nucleated RBC % 8.0 H Seg Neutrophils # Seg Neutrophils # Man Lymphocytes # (Manual) 0.9 L Monocytes # (Manual) 0.9 H PT 37.1 H INR 3.71 H APTT 135.8 H* Fibrinogen D-Dimer ABG pH 7.067 L* POC ABG pCO2 POC ABG pO2 ABG pO2 183.0 H ABG HCO3 14.1 L ABG Base Excess -15.1 L ABG Hemoglobin 7.7 L ABG Oxyhemoglobin ABG Sodium ABG Potassium ABG Chloride ABG Glucose VBG pH Oxyhemoglobin Carboxyhemoglobin Sodium Potassium Chloride Carbon Dioxide BUN Creatinine Glucose POC Glucose Lactic Acid Calcium Ionized Calcium Magnesium AST ALT Alkaline Phosphatase Lactate Dehydrogenase NT-Pro-B Natriuret Pep Total Protein Albumin Arterial Blood Glucose Arterial Blood Ionized Calcium Urine WBC (Auto) Vancomycin Trough Phenytoin Crossmatch 10/02/20 10/02/20 10/03/20 Unknown Unknown 00:01 WBC RBC Hgb Hct MCV MCH MCHC RDW Plt Count Lymph % (Auto) [place] % (Auto) Lymph # (Auto) [place] # (Auto) Baso # (Auto) Seg Neutrophils % Seg Neuts % (Manual) Lymphocytes % (Manual) Monocytes % (Manual) Nucleated RBC % Seg Neutrophils # Seg Neutrophils # Man Lymphocytes # (Manual) Monocytes # (Manual) PT 61.1 H INR 6.92 H* APTT 158.7 H* Fibrinogen < 60 L* D-Dimer > 57162 H ABG pH POC ABG pCO2 POC ABG pO2 ABG pO2 ABG HCO3 ABG Base Excess ABG Hemoglobin ABG Oxyhemoglobin ABG Sodium ABG Potassium ABG Chloride ABG Glucose VBG pH 6.949 L* Oxyhemoglobin Carboxyhemoglobin Sodium Potassium Chloride Carbon Dioxide BUN Creatinine Glucose POC Glucose 196 H Lactic Acid Calcium Ionized Calcium Magnesium AST ALT Alkaline Phosphatase Lactate Dehydrogenase NT-Pro-B Natriuret Pep Total Protein Albumin Arterial Blood Glucose Arterial Blood Ionized Calcium Urine WBC (Auto) Vancomycin Trough Phenytoin Crossmatch 10/03/20 10/03/20 10/03/20 00:40 00:40 00:40 WBC RBC Hgb Hct MCV MCH MCHC RDW Plt Count Lymph % (Auto) [place] % (Auto) Lymph # (Auto) [place] # (Auto) Baso # (Auto) Seg Neutrophils % Seg Neuts % (Manual) Lymphocytes % (Manual) Monocytes % (Manual) Nucleated RBC % Seg Neutrophils # Seg Neutrophils # Man Lymphocytes # (Manual) Monocytes # (Manual) PT 15.1 H INR 1.21 H APTT Fibrinogen D-Dimer ABG pH POC ABG pCO2 POC ABG pO2 ABG pO2 ABG HCO3 ABG Base Excess ABG Hemoglobin ABG Oxyhemoglobin ABG Sodium ABG Potassium ABG Chloride ABG Glucose VBG pH Oxyhemoglobin Carboxyhemoglobin Sodium 136 L Potassium Chloride Carbon Dioxide BUN Creatinine 1.6 H D Glucose 106 H POC Glucose Lactic Acid 5.60 H* Calcium 6.5 L Ionized Calcium Magnesium AST 232 H ALT 104 H Alkaline Phosphatase Lactate Dehydrogenase NT-Pro-B Natriuret Pep Total Protein 3.9 L D Albumin 2.4 L Arterial Blood Glucose Arterial Blood Ionized Calcium Urine WBC (Auto) Vancomycin Trough Phenytoin Crossmatch 10/03/20 10/03/20 10/03/20 02:08 02:08 02:08 WBC 17.6 H RBC 3.27 L Hgb 9.9 L D Hct 29.9 L D MCV MCH MCHC RDW 16.5 H Plt Count 75 L Lymph % (Auto) [place] % (Auto) Lymph # (Auto) [place] # (Auto) Baso # (Auto) Seg Neutrophils % Seg Neuts % (Manual) 76.0 H Lymphocytes % (Manual) Monocytes % (Manual) Nucleated RBC % 8.0 H Seg Neutrophils # Seg Neutrophils # Man 13.4 H Lymphocytes # (Manual) Monocytes # (Manual) PT INR APTT Fibrinogen D-Dimer ABG pH POC ABG pCO2 POC ABG pO2 ABG pO2 ABG HCO3 ABG Base Excess ABG Hemoglobin ABG Oxyhemoglobin ABG Sodium ABG Potassium ABG Chloride ABG Glucose VBG pH Oxyhemoglobin Carboxyhemoglobin Sodium Potassium Chloride Carbon Dioxide 19 L BUN Creatinine 1.4 H Glucose 306 H POC Glucose Lactic Acid 10.50 H* Calcium 6.4 L Ionized Calcium Magnesium AST ALT Alkaline Phosphatase Lactate Dehydrogenase NT-Pro-B Natriuret Pep Total Protein Albumin Arterial Blood Glucose Arterial Blood Ionized Calcium Urine WBC (Auto) Vancomycin Trough Phenytoin Crossmatch 10/03/20 10/03/20 10/03/20 02:42 03:59 05:31 WBC RBC Hgb Hct MCV MCH MCHC RDW Plt Count Lymph % (Auto) [place] % (Auto) Lymph # (Auto) [place] # (Auto) Baso # (Auto) Seg Neutrophils % Seg Neuts % (Manual) Lymphocytes % (Manual) Monocytes % (Manual) Nucleated RBC % Seg Neutrophils # Seg Neutrophils # Man Lymphocytes # (Manual) Monocytes # (Manual) PT INR APTT Fibrinogen D-Dimer ABG pH 7.144 L POC ABG pCO2 54.4 H POC ABG pO2 ABG pO2 ABG HCO3 ABG Base Excess ABG Hemoglobin 10.0 L ABG Oxyhemoglobin ABG Sodium ABG Potassium ABG Chloride 108.0 H ABG Glucose 306 H VBG pH Oxyhemoglobin Carboxyhemoglobin Sodium Potassium Chloride Carbon Dioxide BUN Creatinine Glucose POC Glucose 209 H Lactic Acid 9.20 H* Calcium Ionized Calcium Magnesium AST ALT Alkaline Phosphatase Lactate Dehydrogenase NT-Pro-B Natriuret Pep Total Protein Albumin Arterial Blood Glucose 306 H Arterial Blood Ionized Calcium 3.7 L Urine WBC (Auto) Vancomycin Trough Phenytoin Crossmatch 10/03/20 10/03/20 10/03/20 09:00 09:00 09:00 WBC 27.4 H RBC 2.84 L Hgb 8.5 L Hct 25.1 L MCV MCH MCHC RDW 16.1 H Plt Count 72 L Lymph % (Auto) [place] % (Auto) Lymph # (Auto) [place] # (Auto) Baso # (Auto) Seg Neutrophils % Seg Neuts % (Manual) Lymphocytes % (Manual) 11.0 L Monocytes % (Manual) Nucleated RBC % 3.0 H Seg Neutrophils # Seg Neutrophils # Man 18.4 H Lymphocytes # (Manual) Monocytes # (Manual) 1.9 H PT INR APTT Fibrinogen D-Dimer ABG pH POC ABG pCO2 POC ABG pO2 ABG pO2 ABG HCO3 ABG Base Excess ABG Hemoglobin ABG Oxyhemoglobin ABG Sodium ABG Potassium ABG Chloride ABG Glucose VBG pH Oxyhemoglobin Carboxyhemoglobin Sodium Potassium Chloride Carbon Dioxide BUN Creatinine 1.7 H Glucose 216 H POC Glucose Lactic Acid 9.20 H* Calcium 6.3 L Ionized Calcium Magnesium AST 331 H ALT 171 H Alkaline Phosphatase Lactate Dehydrogenase NT-Pro-B Natriuret Pep Total Protein 3.7 L Albumin 1.9 L Arterial Blood Glucose Arterial Blood Ionized Calcium Urine WBC (Auto) Vancomycin Trough Phenytoin Crossmatch 10/03/20 10/03/20 10/03/20 11:20 11:46 11:50 WBC 28.7 H RBC 2.67 L Hgb 8.0 L Hct 23.7 L MCV MCH MCHC RDW 16.6 H Plt Count 76 L Lymph % (Auto) [place] % (Auto) Lymph # (Auto) [place] # (Auto) Baso # (Auto) Seg Neutrophils % Seg Neuts % (Manual) Lymphocytes % (Manual) Monocytes % (Manual) Nucleated RBC % Seg Neutrophils # Seg Neutrophils # Man Lymphocytes # (Manual) Monocytes # (Manual) PT INR APTT Fibrinogen D-Dimer ABG pH POC ABG pCO2 POC ABG pO2 ABG pO2 ABG HCO3 ABG Base Excess ABG Hemoglobin ABG Oxyhemoglobin ABG Sodium ABG Potassium ABG Chloride ABG Glucose VBG pH Oxyhemoglobin Carboxyhemoglobin Sodium Potassium Chloride Carbon Dioxide BUN Creatinine Glucose POC Glucose 125 H Lactic Acid 8.00 H* Calcium Ionized Calcium Magnesium AST ALT Alkaline Phosphatase Lactate Dehydrogenase NT-Pro-B Natriuret Pep Total Protein Albumin Arterial Blood Glucose Arterial Blood Ionized Calcium Urine WBC (Auto) Vancomycin Trough Phenytoin Crossmatch 10/03/20 10/04/20 10/04/20 11:50 00:40 00:40 WBC RBC Hgb 6.8 L Hct 19.4 L* MCV MCH MCHC RDW Plt Count 49 L Lymph % (Auto) [place] % (Auto) Lymph # (Auto) [place] # (Auto) Baso # (Auto) Seg Neutrophils % Seg Neuts % (Manual) Lymphocytes % (Manual) Monocytes % (Manual) Nucleated RBC % Seg Neutrophils # Seg Neutrophils # Man Lymphocytes # (Manual) Monocytes # (Manual) PT INR APTT Fibrinogen D-Dimer ABG pH 7.244 L POC ABG pCO2 POC ABG pO2 ABG pO2 ABG HCO3 ABG Base Excess -4.5 L ABG Hemoglobin 7.3 L ABG Oxyhemoglobin ABG Sodium ABG Potassium ABG Chloride ABG Glucose VBG pH Oxyhemoglobin Carboxyhemoglobin Sodium Potassium Chloride Carbon Dioxide BUN Creatinine Glucose POC Glucose Lactic Acid Calcium Ionized Calcium Magnesium AST ALT Alkaline Phosphatase Lactate Dehydrogenase NT-Pro-B Natriuret Pep Total Protein Albumin Arterial Blood Glucose Arterial Blood Ionized Calcium Urine WBC (Auto) Vancomycin Trough Phenytoin Crossmatch 10/04/20 10/04/20 10/04/20 03:53 10:00 10:00 WBC 14.6 H RBC 2.57 L Hgb 7.6 L Hct 22.5 L MCV MCH MCHC RDW 15.8 H Plt Count 38 L Lymph % (Auto) 7.7 L [place] % (Auto) Lymph # (Auto) 1.1 L [place] # (Auto) 0.9 H Baso # (Auto) Seg Neutrophils % 85.6 H Seg Neuts % (Manual) Lymphocytes % (Manual) Monocytes % (Manual) Nucleated RBC % Seg Neutrophils # 12.5 H Seg Neutrophils # Man Lymphocytes # (Manual) Monocytes # (Manual) PT INR APTT Fibrinogen D-Dimer ABG pH POC ABG pCO2 POC ABG pO2 110.6 H ABG pO2 ABG HCO3 ABG Base Excess ABG Hemoglobin 6.7 L ABG Oxyhemoglobin ABG Sodium 132.0 L ABG Potassium ABG Chloride ABG Glucose 111 H VBG pH Oxyhemoglobin Carboxyhemoglobin Sodium 134 L D Potassium Chloride 97.6 L Carbon Dioxide BUN Creatinine 1.7 H Glucose POC Glucose Lactic Acid Calcium 6.3 L Ionized Calcium Magnesium AST 203 H ALT 81 H Alkaline Phosphatase Lactate Dehydrogenase NT-Pro-B Natriuret Pep Total Protein 3.9 L Albumin 2.3 L Arterial Blood Glucose 111 H Arterial Blood Ionized Calcium 3.5 L Urine WBC (Auto) Vancomycin Trough Phenytoin Crossmatch 12/20/20 12/20/20 12/20/20 10:00 10:00 10:14 WBC RBC Hgb Hct MCV MCH MCHC RDW Plt Count Lymph % (Auto) [place] % (Auto) Lymph # (Auto) [place] # (Auto) Baso # (Auto) Seg Neutrophils % Seg Neuts % (Manual) Lymphocytes % (Manual) Monocytes % (Manual) Nucleated RBC % Seg Neutrophils # Seg Neutrophils # Man Lymphocytes # (Manual) Monocytes # (Manual) PT INR APTT Fibrinogen D-Dimer > 28774 H ABG pH POC ABG pCO2 POC ABG pO2 ABG pO2 ABG HCO3 ABG Base Excess ABG Hemoglobin ABG Oxyhemoglobin ABG Sodium ABG Potassium ABG Chloride ABG Glucose VBG pH Oxyhemoglobin Carboxyhemoglobin Sodium Potassium Chloride Carbon Dioxide BUN Creatinine Glucose POC Glucose Lactic Acid 3.90 H* Calcium Ionized Calcium Magnesium AST ALT Alkaline Phosphatase Lactate Dehydrogenase NT-Pro-B Natriuret Pep 2788 H Total Protein Albumin Arterial Blood Glucose Arterial Blood Ionized Calcium Urine WBC (Auto) Vancomycin Trough Phenytoin Crossmatch 10/04/20 10/04/20 10/04/20 14:00 14:00 18:00 WBC 15.7 H RBC 3.17 L Hgb 9.3 L 9.6 L Hct 27.2 L 28.0 L MCV MCH MCHC RDW 16.9 H Plt Count 41 L Lymph % (Auto) 8.6 L [place] % (Auto) Lymph # (Auto) [place] # (Auto) 0.9 H Baso # (Auto) Seg Neutrophils % 85.4 H Seg Neuts % (Manual) Lymphocytes % (Manual) Monocytes % (Manual) Nucleated RBC % Seg Neutrophils # 13.4 H Seg Neutrophils # Man Lymphocytes # (Manual) Monocytes # (Manual) PT INR APTT Fibrinogen D-Dimer ABG pH POC ABG pCO2 POC ABG pO2 ABG pO2 ABG HCO3 ABG Base Excess ABG Hemoglobin ABG Oxyhemoglobin ABG Sodium ABG Potassium ABG Chloride ABG Glucose VBG pH Oxyhemoglobin Carboxyhemoglobin Sodium 133 L Potassium Chloride 96.4 L Carbon Dioxide BUN 18 H Creatinine 1.7 H Glucose POC Glucose Lactic Acid Calcium 6.3 L Ionized Calcium Magnesium AST ALT Alkaline Phosphatase Lactate Dehydrogenase NT-Pro-B Natriuret Pep Total Protein Albumin Arterial Blood Glucose Arterial Blood Ionized Calcium Urine WBC (Auto) Vancomycin Trough Phenytoin Crossmatch 10/04/20 10/04/20 10/05/20 18:00 22:00 05:00 WBC 17.6 H RBC 3.34 L Hgb 9.9 L Hct 29.4 L MCV MCH MCHC RDW 17.1 H Plt Count 56 L Lymph % (Auto) 8.5 L [place] % (Auto) Lymph # (Auto) [place] # (Auto) 1.0 H Baso # (Auto) Seg Neutrophils % 85.1 H Seg Neuts % (Manual) Lymphocytes % (Manual) Monocytes % (Manual) Nucleated RBC % Seg Neutrophils # 15.0 H Seg Neutrophils # Man Lymphocytes # (Manual) Monocytes # (Manual) PT INR APTT Fibrinogen D-Dimer ABG pH POC ABG pCO2 POC ABG pO2 ABG pO2 ABG HCO3 ABG Base Excess ABG Hemoglobin ABG Oxyhemoglobin ABG Sodium ABG Potassium ABG Chloride ABG Glucose VBG pH Oxyhemoglobin Carboxyhemoglobin Sodium 136 L Potassium Chloride Carbon Dioxide BUN 18 H Creatinine 1.7 H Glucose POC Glucose Lactic Acid 2.30 H* Calcium 6.6 L Ionized Calcium Magnesium AST ALT Alkaline Phosphatase Lactate Dehydrogenase NT-Pro-B Natriuret Pep Total Protein Albumin Arterial Blood Glucose Arterial Blood Ionized Calcium Urine WBC (Auto) Vancomycin Trough Phenytoin Crossmatch 10/05/20 10/05/20 10/05/20 05:00 05:00 05:03 WBC RBC Hgb Hct MCV MCH MCHC RDW Plt Count Lymph % (Auto) [place] % (Auto) Lymph # (Auto) [place] # (Auto) Baso # (Auto) Seg Neutrophils % Seg Neuts % (Manual) Lymphocytes % (Manual) Monocytes % (Manual) Nucleated RBC % Seg Neutrophils # Seg Neutrophils # Man Lymphocytes # (Manual) Monocytes # (Manual) PT INR APTT Fibrinogen D-Dimer ABG pH 7.458 H POC ABG pCO2 POC ABG pO2 ABG pO2 74.3 L ABG HCO3 27.5 H ABG Base Excess 3.4 H ABG Hemoglobin 10.0 L ABG Oxyhemoglobin ABG Sodium ABG Potassium ABG Chloride ABG Glucose VBG pH Oxyhemoglobin 94.9 L Carboxyhemoglobin Sodium Potassium Chloride Carbon Dioxide BUN 19 H Creatinine 1.8 H Glucose POC Glucose Lactic Acid Calcium 6.8 L Ionized Calcium 3.9 L Magnesium AST 225 H ALT 85 H Alkaline Phosphatase Lactate Dehydrogenase NT-Pro-B Natriuret Pep Total Protein 4.5 L Albumin 2.7 L Arterial Blood Glucose Arterial Blood Ionized Calcium Urine WBC (Auto) Vancomycin Trough Phenytoin Crossmatch 10/05/20 10/05/20 10/05/20 10:10 15:00 19:40 WBC RBC Hgb Hct MCV MCH MCHC RDW Plt Count Lymph % (Auto) [place] % (Auto) Lymph # (Auto) [place] # (Auto) Baso # (Auto) Seg Neutrophils % Seg Neuts % (Manual) Lymphocytes % (Manual) Monocytes % (Manual) Nucleated RBC % Seg Neutrophils # Seg Neutrophils # Man Lymphocytes # (Manual) Monocytes # (Manual) PT INR APTT Fibrinogen D-Dimer ABG pH POC ABG pCO2 POC ABG pO2 ABG pO2 ABG HCO3 ABG Base Excess ABG Hemoglobin ABG Oxyhemoglobin ABG Sodium ABG Potassium ABG Chloride ABG Glucose VBG pH Oxyhemoglobin Carboxyhemoglobin Sodium Potassium 3.5 L Chloride Carbon Dioxide 31 H 32 H BUN 19 H 19 H Creatinine 1.8 H 1.8 H Glucose POC Glucose Lactic Acid Calcium 7.0 L 7.2 L Ionized Calcium Magnesium 2.90 H AST ALT Alkaline Phosphatase Lactate Dehydrogenase NT-Pro-B Natriuret Pep Total Protein Albumin Arterial Blood Glucose Arterial Blood Ionized Calcium Urine WBC (Auto) Vancomycin Trough Phenytoin Crossmatch 10/06/20 10/06/20 10/06/20 01:05 03:12 04:00 WBC 17.1 H RBC 3.47 L Hgb Hct MCV MCH MCHC RDW 17.4 H Plt Count 82 L Lymph % (Auto) 8.3 L [place] % (Auto) Lymph # (Auto) [place] # (Auto) 1.1 H Baso # (Auto) Seg Neutrophils % 83.8 H Seg Neuts % (Manual) Lymphocytes % (Manual) Monocytes % (Manual) Nucleated RBC % Seg Neutrophils # 14.3 H Seg Neutrophils # Man Lymphocytes # (Manual) Monocytes # (Manual) PT INR APTT Fibrinogen D-Dimer ABG pH 7.474 H POC ABG pCO2 POC ABG pO2 129.5 H ABG pO2 ABG HCO3 ABG Base Excess ABG Hemoglobin 11.4 L ABG Oxyhemoglobin ABG Sodium 131.8 L ABG Potassium ABG Chloride ABG Glucose 103 H VBG pH Oxyhemoglobin Carboxyhemoglobin 0.3 L Sodium Potassium Chloride Carbon Dioxide BUN Creatinine Glucose POC Glucose Lactic Acid Calcium Ionized Calcium Magnesium 3.70 H AST ALT Alkaline Phosphatase Lactate Dehydrogenase NT-Pro-B Natriuret Pep Total Protein Albumin Arterial Blood Glucose 103 H Arterial Blood Ionized Calcium 4.2 L Urine WBC (Auto) Vancomycin Trough Phenytoin Crossmatch 10/06/20 10/06/20 10/06/20 04:00 05:31 08:12 WBC RBC Hgb Hct MCV MCH MCHC RDW Plt Count Lymph % (Auto) [place] % (Auto) Lymph # (Auto) [place] # (Auto) Baso # (Auto) Seg Neutrophils % Seg Neuts % (Manual) Lymphocytes % (Manual) Monocytes % (Manual) Nucleated RBC % Seg Neutrophils # Seg Neutrophils # Man Lymphocytes # (Manual) Monocytes # (Manual) PT INR APTT Fibrinogen D-Dimer ABG pH POC ABG pCO2 POC ABG pO2 ABG pO2 ABG HCO3 ABG Base Excess ABG Hemoglobin ABG Oxyhemoglobin ABG Sodium ABG Potassium ABG Chloride ABG Glucose VBG pH Oxyhemoglobin Carboxyhemoglobin Sodium Potassium 3.5 L Chloride Carbon Dioxide BUN 19 H Creatinine 1.8 H Glucose 102 H POC Glucose 116 H Lactic Acid Calcium 7.2 L Ionized Calcium Magnesium 5.40 H AST 307 H ALT 137 H Alkaline Phosphatase Lactate Dehydrogenase NT-Pro-B Natriuret Pep Total Protein 4.5 L Albumin 2.6 L Arterial Blood Glucose Arterial Blood Ionized Calcium Urine WBC (Auto) Vancomycin Trough Phenytoin Crossmatch 10/06/20 10/06/20 10/06/20 11:00 11:50 20:13 WBC RBC Hgb Hct MCV MCH MCHC RDW Plt Count Lymph % (Auto) [place] % (Auto) Lymph # (Auto) [place] # (Auto) Baso # (Auto) Seg Neutrophils % Seg Neuts % (Manual) Lymphocytes % (Manual) Monocytes % (Manual) Nucleated RBC % Seg Neutrophils # Seg Neutrophils # Man Lymphocytes # (Manual) Monocytes # (Manual) PT INR APTT Fibrinogen D-Dimer ABG pH POC ABG pCO2 POC ABG pO2 ABG pO2 ABG HCO3 ABG Base Excess ABG Hemoglobin ABG Oxyhemoglobin ABG Sodium ABG Potassium ABG Chloride ABG Glucose VBG pH Oxyhemoglobin Carboxyhemoglobin Sodium Potassium Chloride Carbon Dioxide BUN Creatinine Glucose POC Glucose 106 H Lactic Acid Calcium Ionized Calcium Magnesium 6.50 H 6.20 H AST ALT Alkaline Phosphatase Lactate Dehydrogenase NT-Pro-B Natriuret Pep Total Protein Albumin Arterial Blood Glucose Arterial Blood Ionized Calcium Urine WBC (Auto) Vancomycin Trough Phenytoin Crossmatch 10/06/20 10/06/20 10/06/20 20:17 22:29 23:57 WBC RBC Hgb Hct MCV MCH MCHC RDW Plt Count Lymph % (Auto) [place] % (Auto) Lymph # (Auto) [place] # (Auto) Baso # (Auto) Seg Neutrophils % Seg Neuts % (Manual) Lymphocytes % (Manual) Monocytes % (Manual) Nucleated RBC % Seg Neutrophils # Seg Neutrophils # Man Lymphocytes # (Manual) Monocytes # (Manual) PT INR APTT Fibrinogen D-Dimer ABG pH POC ABG pCO2 POC ABG pO2 ABG pO2 ABG HCO3 ABG Base Excess ABG Hemoglobin ABG Oxyhemoglobin ABG Sodium ABG Potassium ABG Chloride ABG Glucose VBG pH Oxyhemoglobin Carboxyhemoglobin Sodium Potassium Chloride Carbon Dioxide BUN Creatinine Glucose POC Glucose 112 H 126 H 133 H Lactic Acid Calcium Ionized Calcium Magnesium AST ALT Alkaline Phosphatase Lactate Dehydrogenase NT-Pro-B Natriuret Pep Total Protein Albumin Arterial Blood Glucose Arterial Blood Ionized Calcium Urine WBC (Auto) Vancomycin Trough Phenytoin Crossmatch 10/07/20 10/07/20 10/07/20 00:35 02:22 03:16 WBC RBC Hgb Hct MCV MCH MCHC RDW Plt Count Lymph % (Auto) [place] % (Auto) Lymph # (Auto) [place] # (Auto) Baso # (Auto) Seg Neutrophils % Seg Neuts % (Manual) Lymphocytes % (Manual) Monocytes % (Manual) Nucleated RBC % Seg Neutrophils # Seg Neutrophils # Man Lymphocytes # (Manual) Monocytes # (Manual) PT INR APTT Fibrinogen D-Dimer ABG pH POC ABG pCO2 POC ABG pO2 ABG pO2 ABG HCO3 ABG Base Excess ABG Hemoglobin 11.6 L ABG Oxyhemoglobin ABG Sodium ABG Potassium ABG Chloride ABG Glucose 156 H VBG pH Oxyhemoglobin Carboxyhemoglobin 0.3 L Sodium Potassium Chloride Carbon Dioxide BUN Creatinine Glucose POC Glucose 124 H Lactic Acid Calcium Ionized Calcium Magnesium 5.90 H AST ALT Alkaline Phosphatase Lactate Dehydrogenase NT-Pro-B Natriuret Pep Total Protein Albumin Arterial Blood Glucose 156 H Arterial Blood Ionized Calcium 4.2 L Urine WBC (Auto) Vancomycin Trough Phenytoin Crossmatch 10/07/20 10/07/20 10/07/20 04:06 05:45 07:05 WBC 19.2 H RBC 3.57 L Hgb Hct MCV MCH MCHC 35 H RDW 17.1 H Plt Count 129 L Lymph % (Auto) [place] % (Auto) Lymph # (Auto) [place] # (Auto) Baso # (Auto) Seg Neutrophils % Seg Neuts % (Manual) 94.0 H Lymphocytes % (Manual) 6.0 L Monocytes % (Manual) Nucleated RBC % Seg Neutrophils # Seg Neutrophils # Man 18.0 H Lymphocytes # (Manual) Monocytes # (Manual) PT INR APTT Fibrinogen D-Dimer ABG pH POC ABG pCO2 POC ABG pO2 ABG pO2 ABG HCO3 ABG Base Excess ABG Hemoglobin ABG Oxyhemoglobin ABG Sodium ABG Potassium ABG Chloride ABG Glucose VBG pH Oxyhemoglobin Carboxyhemoglobin Sodium Potassium Chloride Carbon Dioxide BUN Creatinine Glucose POC Glucose 135 H 149 H Lactic Acid Calcium Ionized Calcium Magnesium AST ALT Alkaline Phosphatase Lactate Dehydrogenase NT-Pro-B Natriuret Pep Total Protein Albumin Arterial Blood Glucose Arterial Blood Ionized Calcium Urine WBC (Auto) Vancomycin Trough Phenytoin Crossmatch 10/07/20 10/07/20 10/07/20 07:05 07:05 12:21 WBC RBC Hgb Hct MCV MCH MCHC RDW Plt Count Lymph % (Auto) [place] % (Auto) Lymph # (Auto) [place] # (Auto) Baso # (Auto) Seg Neutrophils % Seg Neuts % (Manual) Lymphocytes % (Manual) Monocytes % (Manual) Nucleated RBC % Seg Neutrophils # Seg Neutrophils # Man Lymphocytes # (Manual) Monocytes # (Manual) PT INR APTT Fibrinogen D-Dimer ABG pH POC ABG pCO2 POC ABG pO2 ABG pO2 ABG HCO3 ABG Base Excess ABG Hemoglobin ABG Oxyhemoglobin ABG Sodium ABG Potassium ABG Chloride ABG Glucose VBG pH Oxyhemoglobin Carboxyhemoglobin Sodium Potassium Chloride Carbon Dioxide BUN 21 H Creatinine 1.7 H Glucose 171 H POC Glucose 124 H Lactic Acid Calcium 7.4 L Ionized Calcium Magnesium 6.10 H AST 245 H ALT 147 H Alkaline Phosphatase Lactate Dehydrogenase NT-Pro-B Natriuret Pep Total Protein 5.3 L Albumin 2.8 L Arterial Blood Glucose Arterial Blood Ionized Calcium Urine WBC (Auto) Vancomycin Trough Phenytoin Crossmatch 10/07/20 10/07/20 10/07/20 19:52 21:00 21:50 WBC RBC Hgb Hct MCV MCH MCHC RDW Plt Count Lymph % (Auto) [place] % (Auto) Lymph # (Auto) [place] # (Auto) Baso # (Auto) Seg Neutrophils % Seg Neuts % (Manual) Lymphocytes % (Manual) Monocytes % (Manual) Nucleated RBC % Seg Neutrophils # Seg Neutrophils # Man Lymphocytes # (Manual) Monocytes # (Manual) PT INR APTT Fibrinogen D-Dimer ABG pH POC ABG pCO2 POC ABG pO2 ABG pO2 ABG HCO3 ABG Base Excess ABG Hemoglobin ABG Oxyhemoglobin ABG Sodium ABG Potassium ABG Chloride ABG Glucose VBG pH Oxyhemoglobin Carboxyhemoglobin Sodium Potassium Chloride Carbon Dioxide BUN Creatinine Glucose POC Glucose 193 H 138 H Lactic Acid Calcium Ionized Calcium 4.4 L Magnesium AST ALT Alkaline Phosphatase Lactate Dehydrogenase NT-Pro-B Natriuret Pep Total Protein Albumin Arterial Blood Glucose Arterial Blood Ionized Calcium Urine WBC (Auto) Vancomycin Trough Phenytoin Crossmatch 10/07/20 10/08/20 10/08/20 23:41 04:20 05:30 WBC RBC Hgb Hct MCV MCH MCHC RDW Plt Count Lymph % (Auto) [place] % (Auto) Lymph # (Auto) [place] # (Auto) Baso # (Auto) Seg Neutrophils % Seg Neuts % (Manual) Lymphocytes % (Manual) Monocytes % (Manual) Nucleated RBC % Seg Neutrophils # Seg Neutrophils # Man Lymphocytes # (Manual) Monocytes # (Manual) PT INR APTT Fibrinogen D-Dimer ABG pH 7.467 H POC ABG pCO2 POC ABG pO2 189.8 H ABG pO2 ABG HCO3 ABG Base Excess ABG Hemoglobin 10.8 L ABG Oxyhemoglobin ABG Sodium ABG Potassium ABG Chloride ABG Glucose 133 H VBG pH Oxyhemoglobin Carboxyhemoglobin Sodium Potassium Chloride Carbon Dioxide BUN Creatinine Glucose POC Glucose 118 H 114 H Lactic Acid Calcium Ionized Calcium Magnesium AST ALT Alkaline Phosphatase Lactate Dehydrogenase NT-Pro-B Natriuret Pep Total Protein Albumin Arterial Blood Glucose 133 H Arterial Blood Ionized Calcium 4.2 L Urine WBC (Auto) Vancomycin Trough Phenytoin Crossmatch 10/08/20 10/08/20 10/08/20 05:43 06:42 06:42 WBC 23.6 H RBC 3.54 L Hgb Hct MCV MCH MCHC RDW 17.8 H Plt Count Lymph % (Auto) [place] % (Auto) Lymph # (Auto) [place] # (Auto) Baso # (Auto) Seg Neutrophils % Seg Neuts % (Manual) 93.0 H Lymphocytes % (Manual) 3.0 L Monocytes % (Manual) Nucleated RBC % 1.0 H Seg Neutrophils # Seg Neutrophils # Man 21.9 H Lymphocytes # (Manual) 0.7 L Monocytes # (Manual) 0.9 H PT INR APTT Fibrinogen D-Dimer ABG pH POC ABG pCO2 POC ABG pO2 ABG pO2 ABG HCO3 ABG Base Excess ABG Hemoglobin ABG Oxyhemoglobin ABG Sodium ABG Potassium ABG Chloride ABG Glucose VBG pH Oxyhemoglobin Carboxyhemoglobin Sodium Potassium Chloride Carbon Dioxide BUN 28 H Creatinine 1.6 H Glucose 141 H POC Glucose 126 H Lactic Acid Calcium 7.6 L Ionized Calcium Magnesium AST 162 H ALT 103 H Alkaline Phosphatase Lactate Dehydrogenase NT-Pro-B Natriuret Pep Total Protein 5.4 L Albumin 2.7 L Arterial Blood Glucose Arterial Blood Ionized Calcium Urine WBC (Auto) Vancomycin Trough Phenytoin Crossmatch 10/08/20 10/08/20 10/08/20 11:20 16:05 20:14 WBC RBC Hgb Hct MCV MCH MCHC RDW Plt Count Lymph % (Auto) [place] % (Auto) Lymph # (Auto) [place] # (Auto) Baso # (Auto) Seg Neutrophils % Seg Neuts % (Manual) Lymphocytes % (Manual) Monocytes % (Manual) Nucleated RBC % Seg Neutrophils # Seg Neutrophils # Man Lymphocytes # (Manual) Monocytes # (Manual) PT INR APTT Fibrinogen D-Dimer ABG pH POC ABG pCO2 POC ABG pO2 ABG pO2 ABG HCO3 ABG Base Excess ABG Hemoglobin ABG Oxyhemoglobin ABG Sodium ABG Potassium ABG Chloride ABG Glucose VBG pH Oxyhemoglobin Carboxyhemoglobin Sodium Potassium Chloride Carbon Dioxide BUN Creatinine Glucose POC Glucose 127 H 172 H 147 H Lactic Acid Calcium Ionized Calcium Magnesium AST ALT Alkaline Phosphatase Lactate Dehydrogenase NT-Pro-B Natriuret Pep Total Protein Albumin Arterial Blood Glucose Arterial Blood Ionized Calcium Urine WBC (Auto) Vancomycin Trough Phenytoin Crossmatch 10/08/20 10/08/20 10/09/20 21:27 23:24 02:10 WBC RBC Hgb Hct MCV MCH MCHC RDW Plt Count Lymph % (Auto) [place] % (Auto) Lymph # (Auto) [place] # (Auto) Baso # (Auto) Seg Neutrophils % Seg Neuts % (Manual) Lymphocytes % (Manual) Monocytes % (Manual) Nucleated RBC % Seg Neutrophils # Seg Neutrophils # Man Lymphocytes # (Manual) Monocytes # (Manual) PT INR APTT Fibrinogen D-Dimer ABG pH POC ABG pCO2 POC ABG pO2 ABG pO2 ABG HCO3 ABG Base Excess ABG Hemoglobin ABG Oxyhemoglobin ABG Sodium ABG Potassium ABG Chloride ABG Glucose VBG pH Oxyhemoglobin Carboxyhemoglobin Sodium Potassium Chloride Carbon Dioxide BUN Creatinine Glucose POC Glucose 140 H 135 H 111 H Lactic Acid Calcium Ionized Calcium Magnesium AST ALT Alkaline Phosphatase Lactate Dehydrogenase NT-Pro-B Natriuret Pep Total Protein Albumin Arterial Blood Glucose Arterial Blood Ionized Calcium Urine WBC (Auto) Vancomycin Trough Phenytoin Crossmatch 10/09/20 10/09/20 10/09/20 03:44 04:39 05:46 WBC 19.7 H RBC 3.51 L Hgb Hct MCV MCH MCHC RDW 17.7 H Plt Count Lymph % (Auto) [place] % (Auto) Lymph # (Auto) [place] # (Auto) Baso # (Auto) Seg Neutrophils % Seg Neuts % (Manual) 86.0 H Lymphocytes % (Manual) 4.0 L Monocytes % (Manual) 9.0 H Nucleated RBC % Seg Neutrophils # Seg Neutrophils # Man 16.9 H Lymphocytes # (Manual) 0.8 L Monocytes # (Manual) 1.8 H PT INR APTT Fibrinogen D-Dimer ABG pH 7.513 H POC ABG pCO2 POC ABG pO2 33.6 L ABG pO2 ABG HCO3 ABG Base Excess ABG Hemoglobin 11.1 L ABG Oxyhemoglobin 70.2 L ABG Sodium ABG Potassium 3.2 L ABG Chloride 108.0 H ABG Glucose 108 H VBG pH Oxyhemoglobin Carboxyhemoglobin Sodium Potassium Chloride Carbon Dioxide BUN Creatinine Glucose POC Glucose 109 H Lactic Acid Calcium Ionized Calcium Magnesium AST ALT Alkaline Phosphatase Lactate Dehydrogenase NT-Pro-B Natriuret Pep Total Protein Albumin Arterial Blood Glucose 108 H Arterial Blood Ionized Calcium 4.3 L Urine WBC (Auto) Vancomycin Trough Phenytoin Crossmatch 10/09/20 10/10/20 10/10/20 05:46 04:00 04:00 WBC 18.4 H RBC Hgb Hct MCV MCH MCHC RDW 17.5 H Plt Count Lymph % (Auto) 9.8 L [place] % (Auto) 8.8 H Lymph # (Auto) [place] # (Auto) 1.6 H Baso # (Auto) Seg Neutrophils % 80.0 H Seg Neuts % (Manual) Lymphocytes % (Manual) Monocytes % (Manual) Nucleated RBC % Seg Neutrophils # 14.7 H Seg Neutrophils # Man Lymphocytes # (Manual) Monocytes # (Manual) PT INR APTT Fibrinogen D-Dimer ABG pH POC ABG pCO2 POC ABG pO2 ABG pO2 ABG HCO3 ABG Base Excess ABG Hemoglobin ABG Oxyhemoglobin ABG Sodium ABG Potassium ABG Chloride ABG Glucose VBG pH Oxyhemoglobin Carboxyhemoglobin Sodium 146 H Potassium 3.2 L 2.9 L* Chloride 108.9 H 112.6 H Carbon Dioxide BUN 34 H 28 H Creatinine 1.4 H 1.3 H Glucose 109 H 101 H POC Glucose Lactic Acid Calcium 7.6 L 7.8 L Ionized Calcium Magnesium AST 137 H 122 H ALT 99 H 81 H Alkaline Phosphatase Lactate Dehydrogenase NT-Pro-B Natriuret Pep Total Protein 5.1 L 5.2 L Albumin 2.6 L 2.7 L Arterial Blood Glucose Arterial Blood Ionized Calcium Urine WBC (Auto) Vancomycin Trough Phenytoin Crossmatch 10/10/20 10/10/20 10/11/20 04:42 09:50 00:44 WBC RBC Hgb Hct MCV MCH MCHC RDW Plt Count Lymph % (Auto) [place] % (Auto) Lymph # (Auto) [place] # (Auto) Baso # (Auto) Seg Neutrophils % Seg Neuts % (Manual) Lymphocytes % (Manual) Monocytes % (Manual) Nucleated RBC % Seg Neutrophils # Seg Neutrophils # Man Lymphocytes # (Manual) Monocytes # (Manual) PT INR APTT Fibrinogen D-Dimer ABG pH 7.534 H POC ABG pCO2 POC ABG pO2 ABG pO2 95.2 H ABG HCO3 ABG Base Excess ABG Hemoglobin 11.3 L ABG Oxyhemoglobin ABG Sodium ABG Potassium ABG Chloride ABG Glucose VBG pH Oxyhemoglobin Carboxyhemoglobin Sodium Potassium Chloride Carbon Dioxide BUN Creatinine Glucose POC Glucose 109 H 106 H Lactic Acid Calcium Ionized Calcium Magnesium AST ALT Alkaline Phosphatase Lactate Dehydrogenase NT-Pro-B Natriuret Pep Total Protein Albumin Arterial Blood Glucose Arterial Blood Ionized Calcium Urine WBC (Auto) Vancomycin Trough Phenytoin Crossmatch 10/11/20 10/11/20 10/11/20 04:00 04:00 06:08 WBC 27.0 H RBC Hgb Hct MCV MCH MCHC RDW 17.7 H Plt Count Lymph % (Auto) 6.3 L [place] % (Auto) Lymph # (Auto) [place] # (Auto) 1.5 H Baso # (Auto) Seg Neutrophils % 87.1 H Seg Neuts % (Manual) Lymphocytes % (Manual) Monocytes % (Manual) Nucleated RBC % Seg Neutrophils # 23.5 H Seg Neutrophils # Man Lymphocytes # (Manual) Monocytes # (Manual) PT INR APTT Fibrinogen D-Dimer ABG pH POC ABG pCO2 POC ABG pO2 ABG pO2 ABG HCO3 ABG Base Excess ABG Hemoglobin ABG Oxyhemoglobin ABG Sodium ABG Potassium ABG Chloride ABG Glucose VBG pH Oxyhemoglobin Carboxyhemoglobin Sodium Potassium 3.2 L Chloride 110.4 H Carbon Dioxide 19 L BUN 22 H Creatinine Glucose 116 H POC Glucose 107 H Lactic Acid Calcium 7.7 L Ionized Calcium Magnesium 1.60 L AST ALT Alkaline Phosphatase Lactate Dehydrogenase NT-Pro-B Natriuret Pep Total Protein Albumin Arterial Blood Glucose Arterial Blood Ionized Calcium Urine WBC (Auto) Vancomycin Trough Phenytoin Crossmatch 10/11/20 10/11/20 10/12/20 11:41 13:26 03:52 WBC RBC Hgb Hct MCV MCH MCHC RDW Plt Count Lymph % (Auto) [place] % (Auto) Lymph # (Auto) [place] # (Auto) Baso # (Auto) Seg Neutrophils % Seg Neuts % (Manual) Lymphocytes % (Manual) Monocytes % (Manual) Nucleated RBC % Seg Neutrophils # Seg Neutrophils # Man Lymphocytes # (Manual) Monocytes # (Manual) PT INR APTT Fibrinogen D-Dimer ABG pH POC ABG pCO2 POC ABG pO2 ABG pO2 ABG HCO3 ABG Base Excess ABG Hemoglobin ABG Oxyhemoglobin ABG Sodium ABG Potassium ABG Chloride ABG Glucose VBG pH Oxyhemoglobin Carboxyhemoglobin Sodium Potassium Chloride Carbon Dioxide BUN Creatinine Glucose POC Glucose 116 H 114 H Lactic Acid Calcium Ionized Calcium Magnesium AST ALT Alkaline Phosphatase Lactate Dehydrogenase NT-Pro-B Natriuret Pep Total Protein Albumin Arterial Blood Glucose Arterial Blood Ionized Calcium Urine WBC (Auto) 24.0 H Vancomycin Trough Phenytoin Crossmatch 10/12/20 10/12/20 10/12/20 04:24 14:47 21:33 WBC RBC Hgb Hct MCV MCH MCHC RDW Plt Count Lymph % (Auto) [place] % (Auto) Lymph # (Auto) [place] # (Auto) Baso # (Auto) Seg Neutrophils % Seg Neuts % (Manual) Lymphocytes % (Manual) Monocytes % (Manual) Nucleated RBC % Seg Neutrophils # Seg Neutrophils # Man Lymphocytes # (Manual) Monocytes # (Manual) PT INR APTT Fibrinogen D-Dimer ABG pH POC ABG pCO2 POC ABG pO2 ABG pO2 ABG HCO3 ABG Base Excess ABG Hemoglobin ABG Oxyhemoglobin ABG Sodium ABG Potassium ABG Chloride ABG Glucose VBG pH Oxyhemoglobin Carboxyhemoglobin Sodium Potassium Chloride 109.9 H Carbon Dioxide 13 L BUN 18 H Creatinine Glucose 119 H POC Glucose 107 H Lactic Acid Calcium 7.6 L Ionized Calcium Magnesium 1.60 L AST ALT Alkaline Phosphatase Lactate Dehydrogenase NT-Pro-B Natriuret Pep Total Protein Albumin Arterial Blood Glucose Arterial Blood Ionized Calcium Urine WBC (Auto) Vancomycin Trough Phenytoin Crossmatch 10/12/20 10/12/20 10/13/20 Unknown Unknown 07:00 WBC 24.3 H RBC 3.38 L Hgb 9.8 L Hct MCV MCH MCHC RDW 18.7 H Plt Count Lymph % (Auto) [place] % (Auto) Lymph # (Auto) [place] # (Auto) Baso # (Auto) Seg Neutrophils % Seg Neuts % (Manual) 93.5 H Lymphocytes % (Manual) 4.5 L Monocytes % (Manual) Nucleated RBC % Seg Neutrophils # Seg Neutrophils # Man 22.7 H Lymphocytes # (Manual) 1.1 L Monocytes # (Manual) PT INR APTT Fibrinogen D-Dimer ABG pH POC ABG pCO2 POC ABG pO2 ABG pO2 ABG HCO3 ABG Base Excess ABG Hemoglobin ABG Oxyhemoglobin ABG Sodium ABG Potassium ABG Chloride ABG Glucose VBG pH Oxyhemoglobin Carboxyhemoglobin Sodium 135 L D Potassium 3.1 L Chloride Carbon Dioxide 17 L BUN Creatinine Glucose 510 H* POC Glucose Lactic Acid Calcium 7.2 L Ionized Calcium Magnesium AST ALT Alkaline Phosphatase Lactate Dehydrogenase NT-Pro-B Natriuret Pep Total Protein Albumin Arterial Blood Glucose Arterial Blood Ionized Calcium Urine WBC (Auto) Vancomycin Trough Phenytoin 5.7 L Crossmatch 10/13/20 10/13/20 10/13/20 07:00 07:00 07:18 WBC 23.6 H RBC 3.26 L Hgb 9.4 L Hct 28.7 L MCV MCH MCHC RDW 18.3 H Plt Count Lymph % (Auto) [place] % (Auto) Lymph # (Auto) [place] # (Auto) Baso # (Auto) Seg Neutrophils % Seg Neuts % (Manual) Lymphocytes % (Manual) Monocytes % (Manual) Nucleated RBC % Seg Neutrophils # Seg Neutrophils # Man Lymphocytes # (Manual) Monocytes # (Manual) PT INR APTT Fibrinogen D-Dimer ABG pH 7.473 H POC ABG pCO2 20.7 L POC ABG pO2 137.9 H ABG pO2 ABG HCO3 ABG Base Excess ABG Hemoglobin 11.2 L ABG Oxyhemoglobin 98.3 H ABG Sodium 135.9 L ABG Potassium ABG Chloride 111.0 H ABG Glucose 109 H VBG pH Oxyhemoglobin Carboxyhemoglobin 0.3 L Sodium 135 L Potassium 3.5 L Chloride 109.1 H Carbon Dioxide 18 L BUN Creatinine Glucose POC Glucose Lactic Acid Calcium 7.3 L Ionized Calcium Magnesium 1.60 L AST ALT Alkaline Phosphatase Lactate Dehydrogenase NT-Pro-B Natriuret Pep Total Protein Albumin Arterial Blood Glucose 109 H Arterial Blood Ionized Calcium Urine WBC (Auto) Vancomycin Trough Phenytoin Crossmatch 10/14/20 10/14/20 10/15/20 04:00 04:00 05:50 WBC 28.6 H 23.2 H RBC 3.61 L 3.43 L Hgb 9.9 L Hct 30.0 L MCV MCH MCHC RDW 18.3 H 18.2 H Plt Count Lymph % (Auto) [place] % (Auto) Lymph # (Auto) [place] # (Auto) Baso # (Auto) Seg Neutrophils % Seg Neuts % (Manual) 88.0 H 90.0 H Lymphocytes % (Manual) 5.0 L 4.0 L Monocytes % (Manual) Nucleated RBC % Seg Neutrophils # Seg Neutrophils # Man 25.2 H 20.9 H Lymphocytes # (Manual) 0.9 L Monocytes # (Manual) 1.4 H 0.9 H PT INR APTT Fibrinogen D-Dimer ABG pH POC ABG pCO2 POC ABG pO2 ABG pO2 ABG HCO3 ABG Base Excess ABG Hemoglobin ABG Oxyhemoglobin ABG Sodium ABG Potassium ABG Chloride ABG Glucose VBG pH Oxyhemoglobin Carboxyhemoglobin Sodium Potassium Chloride 109.9 H Carbon Dioxide 17 L BUN Creatinine Glucose POC Glucose Lactic Acid Calcium Ionized Calcium Magnesium AST ALT Alkaline Phosphatase Lactate Dehydrogenase NT-Pro-B Natriuret Pep Total Protein Albumin Arterial Blood Glucose Arterial Blood Ionized Calcium Urine WBC (Auto) Vancomycin Trough Phenytoin Crossmatch 10/15/20 10/16/20 10/17/20 05:50 11:57 04:57 WBC 15.2 H RBC 3.43 L Hgb Hct MCV MCH MCHC RDW 18.1 H Plt Count Lymph % (Auto) [place] % (Auto) Lymph # (Auto) [place] # (Auto) Baso # (Auto) Seg Neutrophils % Seg Neuts % (Manual) Lymphocytes % (Manual) Monocytes % (Manual) Nucleated RBC % Seg Neutrophils # Seg Neutrophils # Man Lymphocytes # (Manual) Monocytes # (Manual) PT INR APTT Fibrinogen D-Dimer ABG pH POC ABG pCO2 POC ABG pO2 ABG pO2 ABG HCO3 ABG Base Excess ABG Hemoglobin ABG Oxyhemoglobin ABG Sodium ABG Potassium ABG Chloride ABG Glucose VBG pH Oxyhemoglobin Carboxyhemoglobin Sodium Potassium Chloride 110.3 H Carbon Dioxide 18 L BUN Creatinine Glucose 105 H POC Glucose 111 H Lactic Acid Calcium 8.3 L Ionized Calcium Magnesium AST ALT Alkaline Phosphatase Lactate Dehydrogenase NT-Pro-B Natriuret Pep Total Protein Albumin Arterial Blood Glucose Arterial Blood Ionized Calcium Urine WBC (Auto) Vancomycin Trough Phenytoin Crossmatch 10/17/20 10/17/20 10/18/20 05:25 21:16 01:31 WBC RBC Hgb Hct MCV MCH MCHC RDW Plt Count Lymph % (Auto) [place] % (Auto) Lymph # (Auto) [place] # (Auto) Baso # (Auto) Seg Neutrophils % Seg Neuts % (Manual) Lymphocytes % (Manual) Monocytes % (Manual) Nucleated RBC % Seg Neutrophils # Seg Neutrophils # Man Lymphocytes # (Manual) Monocytes # (Manual) PT INR APTT Fibrinogen D-Dimer ABG pH POC ABG pCO2 POC ABG pO2 ABG pO2 ABG HCO3 ABG Base Excess ABG Hemoglobin ABG Oxyhemoglobin ABG Sodium ABG Potassium ABG Chloride ABG Glucose VBG pH Oxyhemoglobin Carboxyhemoglobin Sodium Potassium Chloride Carbon Dioxide BUN Creatinine Glucose POC Glucose 107 H 106 H 119 H Lactic Acid Calcium Ionized Calcium Magnesium AST ALT Alkaline Phosphatase Lactate Dehydrogenase NT-Pro-B Natriuret Pep Total Protein Albumin Arterial Blood Glucose Arterial Blood Ionized Calcium Urine WBC (Auto) Vancomycin Trough Phenytoin Crossmatch 10/18/20 10/18/20 10/19/20 05:45 11:23 01:14 WBC RBC Hgb Hct MCV MCH MCHC RDW Plt Count Lymph % (Auto) [place] % (Auto) Lymph # (Auto) [place] # (Auto) Baso # (Auto) Seg Neutrophils % Seg Neuts % (Manual) Lymphocytes % (Manual) Monocytes % (Manual) Nucleated RBC % Seg Neutrophils # Seg Neutrophils # Man Lymphocytes # (Manual) Monocytes # (Manual) PT INR APTT Fibrinogen D-Dimer ABG pH POC ABG pCO2 POC ABG pO2 ABG pO2 ABG HCO3 ABG Base Excess ABG Hemoglobin ABG Oxyhemoglobin ABG Sodium ABG Potassium ABG Chloride ABG Glucose VBG pH Oxyhemoglobin Carboxyhemoglobin Sodium Potassium Chloride Carbon Dioxide BUN Creatinine Glucose POC Glucose 106 H 115 H 108 H Lactic Acid Calcium Ionized Calcium Magnesium AST ALT Alkaline Phosphatase Lactate Dehydrogenase NT-Pro-B Natriuret Pep Total Protein Albumin Arterial Blood Glucose Arterial Blood Ionized Calcium Urine WBC (Auto) Vancomycin Trough Phenytoin Crossmatch 10/19/20 10/20/20 10/20/20 09:57 05:40 07:59 WBC RBC Hgb Hct MCV MCH MCHC RDW Plt Count Lymph % (Auto) [place] % (Auto) Lymph # (Auto) [place] # (Auto) Baso # (Auto) Seg Neutrophils % Seg Neuts % (Manual) Lymphocytes % (Manual) Monocytes % (Manual) Nucleated RBC % Seg Neutrophils # Seg Neutrophils # Man Lymphocytes # (Manual) Monocytes # (Manual) PT INR APTT Fibrinogen D-Dimer ABG pH POC ABG pCO2 POC ABG pO2 ABG pO2 ABG HCO3 ABG Base Excess ABG Hemoglobin ABG Oxyhemoglobin ABG Sodium ABG Potassium ABG Chloride ABG Glucose VBG pH Oxyhemoglobin Carboxyhemoglobin Sodium Potassium Chloride Carbon Dioxide BUN Creatinine Glucose 106 H POC Glucose 122 H 109 H Lactic Acid Calcium Ionized Calcium Magnesium AST ALT Alkaline Phosphatase Lactate Dehydrogenase NT-Pro-B Natriuret Pep Total Protein Albumin Arterial Blood Glucose Arterial Blood Ionized Calcium Urine WBC (Auto) Vancomycin Trough Phenytoin Crossmatch 10/20/20 10/20/20 10/21/20 16:52 16:52 13:54 WBC 18.8 H 17.0 H RBC Hgb Hct MCV MCH MCHC RDW 17.7 H 17.8 H Plt Count 547 H 544 H Lymph % (Auto) 11.2 L [place] % (Auto) 8.1 H Lymph # (Auto) [place] # (Auto) 1.5 H Baso # (Auto) 0.2 H Seg Neutrophils % 78.8 H Seg Neuts % (Manual) Lymphocytes % (Manual) Monocytes % (Manual) Nucleated RBC % Seg Neutrophils # 14.8 H Seg Neutrophils # Man Lymphocytes # (Manual) Monocytes # (Manual) PT INR APTT Fibrinogen D-Dimer ABG pH POC ABG pCO2 POC ABG pO2 ABG pO2 ABG HCO3 ABG Base Excess ABG Hemoglobin ABG Oxyhemoglobin ABG Sodium ABG Potassium ABG Chloride ABG Glucose VBG pH Oxyhemoglobin Carboxyhemoglobin Sodium Potassium Chloride Carbon Dioxide BUN Creatinine Glucose POC Glucose Lactic Acid Calcium Ionized Calcium Magnesium AST ALT Alkaline Phosphatase Lactate Dehydrogenase NT-Pro-B Natriuret Pep Total Protein Albumin Arterial Blood Glucose Arterial Blood Ionized Calcium Urine WBC (Auto) Vancomycin Trough 34.5 H Phenytoin Crossmatch 10/21/20 10/22/20 10/23/20 13:54 07:26 05:34 WBC 18.7 H 13.0 H RBC 3.64 L 3.50 L Hgb Hct 30.0 L MCV MCH MCHC 35 H RDW 17.7 H 17.6 H Plt Count 502 H 503 H Lymph % (Auto) [place] % (Auto) Lymph # (Auto) [place] # (Auto) Baso # (Auto) Seg Neutrophils % Seg Neuts % (Manual) Lymphocytes % (Manual) Monocytes % (Manual) Nucleated RBC % Seg Neutrophils # Seg Neutrophils # Man Lymphocytes # (Manual) Monocytes # (Manual) PT INR APTT Fibrinogen D-Dimer ABG pH POC ABG pCO2 POC ABG pO2 ABG pO2 ABG HCO3 ABG Base Excess ABG Hemoglobin ABG Oxyhemoglobin ABG Sodium ABG Potassium ABG Chloride ABG Glucose VBG pH Oxyhemoglobin Carboxyhemoglobin Sodium 136 L Potassium Chloride Carbon Dioxide BUN Creatinine Glucose 120 H POC Glucose Lactic Acid Calcium Ionized Calcium Magnesium AST ALT Alkaline Phosphatase Lactate Dehydrogenase NT-Pro-B Natriuret Pep Total Protein Albumin Arterial Blood Glucose Arterial Blood Ionized Calcium Urine WBC (Auto) Vancomycin Trough Phenytoin Crossmatch 10/23/20 10/26/20 10/27/20 05:34 10:30 07:53 WBC 13.6 H RBC 3.38 L Hgb 10.0 L Hct 28.8 L MCV MCH MCHC 35 H RDW 17.6 H Plt Count Lymph % (Auto) [place] % (Auto) Lymph # (Auto) [place] # (Auto) Baso # (Auto) Seg Neutrophils % Seg Neuts % (Manual) Lymphocytes % (Manual) Monocytes % (Manual) Nucleated RBC % Seg Neutrophils # Seg Neutrophils # Man Lymphocytes # (Manual) Monocytes # (Manual) PT INR APTT Fibrinogen D-Dimer ABG pH 7.459 H POC ABG pCO2 POC ABG pO2 ABG pO2 112.2 H ABG HCO3 ABG Base Excess ABG Hemoglobin ABG Oxyhemoglobin ABG Sodium ABG Potassium ABG Chloride ABG Glucose VBG pH Oxyhemoglobin Carboxyhemoglobin Sodium 135 L Potassium Chloride Carbon Dioxide BUN Creatinine Glucose 105 H POC Glucose Lactic Acid Calcium Ionized Calcium Magnesium AST ALT Alkaline Phosphatase Lactate Dehydrogenase NT-Pro-B Natriuret Pep Total Protein Albumin Arterial Blood Glucose Arterial Blood Ionized Calcium Urine WBC (Auto) Vancomycin Trough Phenytoin Crossmatch 10/27/20 10/27/20 07:53 11:31 WBC RBC Hgb Hct MCV MCH MCHC RDW Plt Count Lymph % (Auto) [place] % (Auto) Lymph # (Auto) [place] # (Auto) Baso # (Auto) Seg Neutrophils % Seg Neuts % (Manual) Lymphocytes % (Manual) Monocytes % (Manual) Nucleated RBC % Seg Neutrophils # Seg Neutrophils # Man Lymphocytes # (Manual) Monocytes # (Manual) PT INR APTT Fibrinogen D-Dimer ABG pH POC ABG pCO2 POC ABG pO2 ABG pO2 ABG HCO3 ABG Base Excess ABG Hemoglobin ABG Oxyhemoglobin ABG Sodium ABG Potassium ABG Chloride ABG Glucose VBG pH Oxyhemoglobin Carboxyhemoglobin Sodium Potassium Chloride Carbon Dioxide BUN 20 H Creatinine Glucose 112 H POC Glucose 113 H Lactic Acid Calcium Ionized Calcium Magnesium AST 83 H ALT Alkaline Phosphatase Lactate Dehydrogenase NT-Pro-B Natriuret Pep Total Protein Albumin 3.8 L Arterial Blood Glucose Arterial Blood Ionized Calcium Urine WBC (Auto) Vancomycin Trough Phenytoin Crossmatch
--- NOTE | 2020-10-27 12:53 | Progress Note ---
Assessment and Plan Cultures: 10/05/2020 Blood culture: no growth 10/11/2020 blood culture: No growth 10/11/2020 tracheal aspirate: Usual respiratory jaylan 10/14/2020 blood culture: Enterobacter, coag negative staph. Sensitivities in "scanned reports" 10/15/2020 blood culture: negative A/P: 30-year-old female with GERD, hypertension, seizure disorder was admitted to the hospital at 36 weeks with seizures. She became hypoxic and pulseless requiring CPR. Following emergent section, patient developed hemorrhage, DIC. She has been admitted to ICU, remains on the vent: #Fever, sepsis is likely secondary to bacteremia: ?PICC, no acute intra- abdominal source noted on CT. New PICC was placed after the most recent (negative) cultures were obtained. Repeat CT abdomen pelvis on 10/23/2020 showed surgical changes, no abscess identified. #Status post arrest 10/07/2020: Apparently had a brief code due to ?ET tube clot/plugging. #Initial shock, DIC/persistent fever: Secondary to hemorrhage, ?possible sepsis. Possible pneumonia versus fluid overload. ?Central fever v/s from VTE. Noted diarrhea ? Cdiff + #Acute kidney injury: resolved #Acute respiratory failure: remains on the vent. now has trach #Transaminitis: ?HELLP. Improving. #Preeclampsia # hemorrhage: Status post , status post supracervical hysterectomy. #Encephalopathy post cardiac arrest #C. difficile: Completed PO vancomycin Recs: -Normal procalcitonin. Stop antibiotics. Julee Oneill MD [facility] O: [phone] F: [phone] Subjective Date of service: 10/27/20 Principal diagnosis: Eclampsia/HELLP Syndrome, ADOLPH, DIC; s/p , s/p supracervical hyst Interval history: Afebrile, remains tachycardic off and on. White count is 13.6. Procalcitonin is returned normal. Remains mechanically ventilated. Objective - Exam Narrative Exam: Constitutional: awake, intubated, on the vent Head, Ears, Nose: Normocephalic, atraumatic. Eyes: Conjunctivae/corneas clear. No icterus.. Neck: trach Oral: MMM Cardiovascular: S1, S2 + Respiratory: AE fair bilaterally and equal GI: Soft, bowel sounds +. lower abdominal incision present, healing well Musculoskeletal: edematous extremities, no cyanosis. Skin: No rash or abscess Hem/Lymphatic: No palpable cervical or supraclavicular nodes. Psych: no agitation Neurological: awake, doesn't follow commands, but opens eyes,trached on the vent , exam limited - Constitutional Vitals: Vital Signs Temp Pulse Resp BP Pulse Ox 99.7 F H 89 20 117/74 100 10/27/20 08:00 10/27/20 11:22 10/27/20 11:22 10/27/20 11:22 10/27/20 11:22 Temperature -Last 24 Hours Temperature 99.7 F Temperature 98.9 F Temperature 98.8 F Temperature 98.9 F Temperature 98.9 F - Labs CBC & Chem 7: 10/27/20 07:53 10/27/20 07:53 Labs: Abnormal lab results 10/27/20 10/27/20 10/27/20 Range/Units 07:53 07:53 11:31 WBC 13.6 H (4.5-11.0) K/mm3 RBC 3.38 L (3.65-5.03) M/mm3 Hgb 10.0 L (10.1-14.3) gm/dl Hct 28.8 L (30.3-42.9) % MCHC 35 H (30-34) % RDW 17.6 H (13.2-15.2) % BUN 20 H (7-17) mg/dL Glucose 112 H (65-100) mg/dL POC Glucose 113 H (70-105) mg/dL AST 83 H (5-40) units/L Albumin 3.8 L (3.9-5) g/dL
[2020-10-27] MEDS: DEXTROSE 10% IN WATER 1,000 ML IV SCH (13:20)
[2020-10-28] MEDS: DEXTROSE 10% IN WATER 1,000 ML IV SCH ×2 (03:00→18:38)
[2020-10-28] MEDS: hydrALAZINE 25 MG TAB PO SCH ×3 (05:34→21:30)
[2020-10-28] MEDS: GLYCOPYRROLATE 1 MG TAB PO SCH ×2 (10:01→21:30)
[2020-10-28] MEDS: FUROSEMIDE 40 MG TAB PO SCH (10:01)
[2020-10-28] MEDS: ENOXAPARIN 40 MG/0.4 ML INJ SUB-Q SCH (10:02)
[2020-10-28] MEDS: TOPIRAMATE TAB 25 MG TAB PO SCH ×2 (10:02→21:30)
[2020-10-28] MEDS: SODIUM BICARBONATE 650 MG TAB PO SCH ×3 (10:03→21:31)
[2020-10-28] MEDS: FAMOTIDINE 20 MG TAB PO SCH ×2 (10:03→21:31)
--- NOTE | 2020-10-28 11:37 | Progress Note ---
Assessment and Plan 30 y/o female with Eclampsia, s/p emergent section with DIC, acute respiratory failure and worsening renal function. 10/28/20: Daily T-piece trials for as long as tolerated. Attempt to push further daily. OT does not do passive range of motion. Per PT note will do passive range of motion with patient. Guarded prognosis. Hoping to wean off vent and transition to floor. 10/27/20: Continue daily T-piece trials for as long as tolerated. Ok with resting on either PSV or full rate if needed at night but need to strengthen her respiratory muscles. PT/OT if possible. Will transition to step down prior to going to floor to insure stability. 10/26/20: Will obtain ABG today. If good, will attempt on T-piece later. Continue PT/OT. Will speak with CM about possibility of LTACH or nursing facility that can take trached patients. 10/23/20: Daily PSV trials for as long as patient will tolerate. Needs PT/OT consult for passive range of motion. 10/22/20: Will start prolonged PSV trials. Attempt to wean from vent and then transition to floor to see if mental status improves. Continue tube feeds. 10/21/20: Trach and peg placed. No sedation. Restart Lovenox for Upper Ext DVT. Restart feeds when surgery states ok to use PEG. C. Diff treatment per ID. Guarded prognosis. Will be a alf wean. Hopeful to wean off vent at least and then can transfer to floor. 10/20/20: NPO after midnight. DVT study just read from 10/14 on yesterday showing upper ext DVT. Started on Lovenox but need to hold therapy until after surgery. could be source of fevers. No sedation. 10/19/20: Stable BP. Will meet/talk with family at noon over the phone with myself and case management. Need to discuss goals of care and what next steps would be. Patient would need trach and peg and transfer to LTACH if family ok with this. Follow up speciation of GNR's in blood. Has been on Cefepime. Continues therapy for C. Diff. Guarded prognosis. Continue daily PSV trials but not ready for extubation secondary to mental state. 10/18/20: Blood pressure is much better with the addition of meds started on yesterday. Need to have family meeting jesica in regards to goals of care. Continue Daily PSV trials but not ready for extubation. Continue therapy for C. Diff per ID. 10/17/20: CT scan was of no help in regards to fevers. C. Diff is positive and BP now is more uncontrolled despite increasing labetalol. Today will increase to 300 TID. Added TID Hydralazine and added PO lasix given her mild pulmonary htn seen on echo. Spoke with mother over the phone and she requests to come see the patient. Given current circumstances, will allow her to come briefly today and then will speak with her at the bedside. No neurology is available at the time and suspect these will be the majority of her questions. Tolerated PSV briefly yesterday and will do again today but not for extended periods as given her mental state she is not a candidate for extubation. I will also ask the mother about alf care (trach and peg) when she comes today. Overall prognosis is guarded to poor. If oral meds cannot regulate blood pressure, may need Cardene drip. Continue therapy for C. Diff per ID. 10/16/20: Needs a different consent for CT of abdomen and pelvis. I have signed the one in the chart. The nurse who obtained the first consent did obtain consent for contrast, it just wasn't listed on the that consent. Await neurology input on EEG vs MRI findings. Patient has now been intubated 14 days. Need to have family meeting to discuss goals of care but I suspect family will want to hear from Neurology as well. Tolerating PSV trials but will only do briefly as patient is not a candidate for extubation today. Will increase labetalol to 200 TID based on MRI report. Overall prognosis is guarded to poor. Subjective Date of service: 10/28/20 Principal diagnosis: Eclampsia/HELLP Syndrome, ADOLPH, DIC; s/p , s/p supracervical hyst Interval history: No acute events. Eyes closed. Not responding to name call. Sugars are still low, even on D10 at [address] of abdomen show normal liver. Tolerating T-piece during the day and PSV at night. Gets tired around 1700. Objective Vital Signs - 12hr 10/27/20 10/28/20 10/28/20 23:57 00:00 00:06 Temperature 98.2 F Pulse Rate 103 H 103 H Pulse Rate [ 103 H From Monitor] Respiratory 14 23 Rate Blood Pressure 123/87 123/87 O2 Sat by Pulse 99 99 Oximetry 10/28/20 10/28/20 10/28/20 01:00 02:00 03:00 Temperature Pulse Rate 111 H 119 H 91 H Pulse Rate [ From Monitor] Respiratory 28 H 17 19 Rate Blood Pressure 129/68 129/86 133/76 O2 Sat by Pulse 99 98 98 Oximetry 10/28/20 10/28/20 10/28/20 04:00 05:00 05:34 Temperature 99.0 F Pulse Rate 97 H 86 86 Pulse Rate [ 92 H From Monitor] Respiratory 14 17 Rate Blood Pressure 116/86 116/86 125/79 O2 Sat by Pulse 99 100 Oximetry 10/28/20 10/28/20 10/28/20 05:43 06:00 08:00 Temperature 99.2 F Pulse Rate 89 88 Pulse Rate [ From Monitor] Respiratory 17 18 Rate Blood Pressure 125/79 126/76 O2 Sat by Pulse 100 97 Oximetry 10/28/20 10/28/20 10/28/20 08:18 08:21 10:01 Temperature Pulse Rate 105 H 108 H Pulse Rate [ From Monitor] Respiratory 24 Rate Blood Pressure 124/74 129/85 O2 Sat by Pulse 99 99 Oximetry Constitutional: comatose, other (critically ill on ventilator trach) Eyes: non-icteric ENT: oropharynx moist, other (orally intubated and not sedated) Neck: other (large in cirumference) Effort: normal Ascultation: Bilateral: clear, diminished breath sounds, other (coarse BS bilaterally w/ mild faint wheezes) Percussion: Bilateral: not dull Cardiovascular: regular rate and rhythm, other (no mrg) Gastrointestinal: normoactive bowel sounds, soft, other (post surgical changes with drain on the left side) Extremities: no cyanosis, pink and warm, anasarca Neurologic: other (unresponsive, not following commands, not tracking) Psychiatric: other (unable to assess) CBC and BMP: 10/27/20 07:53 10/27/20 07:53 ABG, PT/INR, D-dimer: ABG ABG pH 7.459 pH Units (7.350-7.450) H 10/26/20 10:30 POC ABG pCO2 20.7 mmHg (32.0-48.0) L 10/13/20 07:18 ABG pCO2 32.4 mm Hg 10/26/20 10:30 POC ABG pO2 137.9 mmHg (83-108) H 10/13/20 07:18 ABG pO2 112.2 mm Hg (80.0-90.0) H 10/26/20 10:30 POC ABG HCO3 14.8 10/13/20 07:18 ABG O2 Saturation 98.2 % (95.0-99.0) 10/26/20 10:30 PT/INR, D-dimer PT 13.6 Sec. (12.2-14.9) 10/21/20 13:54 INR 1.06 (0.87-1.13) 10/21/20 13:54 D-Dimer > 96478 ng/mlDDU (0-234) H 10/04/20 10:00 Abnormal lab findings: Abnormal Labs 10/02/20 10/02/20 10/02/20 12:03 12:18 12:18 WBC 14.9 H RBC Hgb 9.1 L Hct MCV MCH 22 L MCHC 28 L RDW 17.6 H Plt Count 102 L Lymph % (Auto) [place] % (Auto) Lymph # (Auto) [place] # (Auto) Baso # (Auto) Seg Neutrophils % Seg Neuts % (Manual) 36.0 L Lymphocytes % (Manual) 49.0 H Monocytes % (Manual) Nucleated RBC % 6.0 H Seg Neutrophils # Seg Neutrophils # Man Lymphocytes # (Manual) 7.3 H Monocytes # (Manual) PT INR APTT Fibrinogen D-Dimer ABG pH POC ABG pCO2 POC ABG pO2 ABG pO2 ABG HCO3 ABG Base Excess ABG Hemoglobin ABG Oxyhemoglobin ABG Sodium ABG Potassium ABG Chloride ABG Glucose VBG pH Oxyhemoglobin Carboxyhemoglobin Sodium 134 L Potassium Chloride Carbon Dioxide 12 L BUN 6 L Creatinine Glucose 390 H POC Glucose 451 H Lactic Acid Calcium Ionized Calcium Magnesium AST 135 H ALT 85 H Alkaline Phosphatase 172 H Lactate Dehydrogenase 641 H NT-Pro-B Natriuret Pep Total Protein 5.4 L Albumin 2.3 L Arterial Blood Glucose Arterial Blood Ionized Calcium Urine WBC (Auto) Vancomycin Trough Phenytoin Crossmatch 12/18/20 12/18/20 12/18/20 12:50 13:05 13:05 WBC 38.6 H RBC Hgb 8.9 L Hct 29.0 L MCV 73 L MCH 22 L MCHC RDW 17.2 H Plt Count Lymph % (Auto) [place] % (Auto) Lymph # (Auto) [place] # (Auto) Baso # (Auto) Seg Neutrophils % Seg Neuts % (Manual) Lymphocytes % (Manual) Monocytes % (Manual) Nucleated RBC % 2.0 H Seg Neutrophils # Seg Neutrophils # Man 20.1 H Lymphocytes # (Manual) 10.4 H Monocytes # (Manual) 2.3 H PT INR APTT Fibrinogen D-Dimer ABG pH POC ABG pCO2 POC ABG pO2 ABG pO2 ABG HCO3 ABG Base Excess ABG Hemoglobin ABG Oxyhemoglobin ABG Sodium ABG Potassium ABG Chloride ABG Glucose VBG pH Oxyhemoglobin Carboxyhemoglobin Sodium Potassium Chloride Carbon Dioxide BUN Creatinine Glucose POC Glucose Lactic Acid Calcium Ionized Calcium Magnesium AST 184 H ALT 113 H Alkaline Phosphatase Lactate Dehydrogenase 769 H NT-Pro-B Natriuret Pep Total Protein Albumin Arterial Blood Glucose Arterial Blood Ionized Calcium Urine WBC (Auto) Vancomycin Trough Phenytoin Crossmatch See Detail 10/02/20 10/02/20 10/02/20 16:25 16:35 16:35 WBC RBC Hgb Hct MCV MCH MCHC RDW Plt Count Lymph % (Auto) [place] % (Auto) Lymph # (Auto) [place] # (Auto) Baso # (Auto) Seg Neutrophils % Seg Neuts % (Manual) Lymphocytes % (Manual) Monocytes % (Manual) Nucleated RBC % Seg Neutrophils # Seg Neutrophils # Man Lymphocytes # (Manual) Monocytes # (Manual) PT INR APTT Fibrinogen D-Dimer ABG pH 7.031 L* POC ABG pCO2 POC ABG pO2 ABG pO2 116.8 H ABG HCO3 12.7 L ABG Base Excess -16.9 L ABG Hemoglobin 7.8 L ABG Oxyhemoglobin ABG Sodium ABG Potassium ABG Chloride ABG Glucose VBG pH Oxyhemoglobin 94.9 L Carboxyhemoglobin Sodium Potassium Chloride Carbon Dioxide BUN Creatinine Glucose 403 H POC Glucose Lactic Acid 11.40 H* Calcium 6.3 L D Ionized Calcium Magnesium AST 70 H ALT Alkaline Phosphatase Lactate Dehydrogenase NT-Pro-B Natriuret Pep Total Protein 1.9 L D Albumin 1.2 L Arterial Blood Glucose Arterial Blood Ionized Calcium Urine WBC (Auto) Vancomycin Trough Phenytoin Crossmatch 10/02/20 10/02/20 10/02/20 18:18 18:18 22:30 WBC 11.5 H RBC 2.06 L Hgb 5.5 L* D Hct 17.3 L* D MCV MCH 27 L MCHC RDW 19.5 H Plt Count 60 L Lymph % (Auto) [place] % (Auto) Lymph # (Auto) [place] # (Auto) Baso # (Auto) Seg Neutrophils % Seg Neuts % (Manual) Lymphocytes % (Manual) 8.0 L Monocytes % (Manual) 8.0 H Nucleated RBC % 8.0 H Seg Neutrophils # Seg Neutrophils # Man Lymphocytes # (Manual) 0.9 L Monocytes # (Manual) 0.9 H PT 37.1 H INR 3.71 H APTT 135.8 H* Fibrinogen D-Dimer ABG pH 7.067 L* POC ABG pCO2 POC ABG pO2 ABG pO2 183.0 H ABG HCO3 14.1 L ABG Base Excess -15.1 L ABG Hemoglobin 7.7 L ABG Oxyhemoglobin ABG Sodium ABG Potassium ABG Chloride ABG Glucose VBG pH Oxyhemoglobin Carboxyhemoglobin Sodium Potassium Chloride Carbon Dioxide BUN Creatinine Glucose POC Glucose Lactic Acid Calcium Ionized Calcium Magnesium AST ALT Alkaline Phosphatase Lactate Dehydrogenase NT-Pro-B Natriuret Pep Total Protein Albumin Arterial Blood Glucose Arterial Blood Ionized Calcium Urine WBC (Auto) Vancomycin Trough Phenytoin Crossmatch 10/02/20 10/02/20 10/03/20 Unknown Unknown 00:01 WBC RBC Hgb Hct MCV MCH MCHC RDW Plt Count Lymph % (Auto) [place] % (Auto) Lymph # (Auto) [place] # (Auto) Baso # (Auto) Seg Neutrophils % Seg Neuts % (Manual) Lymphocytes % (Manual) Monocytes % (Manual) Nucleated RBC % Seg Neutrophils # Seg Neutrophils # Man Lymphocytes # (Manual) Monocytes # (Manual) PT 61.1 H INR 6.92 H* APTT 158.7 H* Fibrinogen < 60 L* D-Dimer > 09844 H ABG pH POC ABG pCO2 POC ABG pO2 ABG pO2 ABG HCO3 ABG Base Excess ABG Hemoglobin ABG Oxyhemoglobin ABG Sodium ABG Potassium ABG Chloride ABG Glucose VBG pH 6.949 L* Oxyhemoglobin Carboxyhemoglobin Sodium Potassium Chloride Carbon Dioxide BUN Creatinine Glucose POC Glucose 196 H Lactic Acid Calcium Ionized Calcium Magnesium AST ALT Alkaline Phosphatase Lactate Dehydrogenase NT-Pro-B Natriuret Pep Total Protein Albumin Arterial Blood Glucose Arterial Blood Ionized Calcium Urine WBC (Auto) Vancomycin Trough Phenytoin Crossmatch 10/03/20 10/03/20 10/03/20 00:40 00:40 00:40 WBC RBC Hgb Hct MCV MCH MCHC RDW Plt Count Lymph % (Auto) [place] % (Auto) Lymph # (Auto) [place] # (Auto) Baso # (Auto) Seg Neutrophils % Seg Neuts % (Manual) Lymphocytes % (Manual) Monocytes % (Manual) Nucleated RBC % Seg Neutrophils # Seg Neutrophils # Man Lymphocytes # (Manual) Monocytes # (Manual) PT 15.1 H INR 1.21 H APTT Fibrinogen D-Dimer ABG pH POC ABG pCO2 POC ABG pO2 ABG pO2 ABG HCO3 ABG Base Excess ABG Hemoglobin ABG Oxyhemoglobin ABG Sodium ABG Potassium ABG Chloride ABG Glucose VBG pH Oxyhemoglobin Carboxyhemoglobin Sodium 136 L Potassium Chloride Carbon Dioxide BUN Creatinine 1.6 H D Glucose 106 H POC Glucose Lactic Acid 5.60 H* Calcium 6.5 L Ionized Calcium Magnesium AST 232 H ALT 104 H Alkaline Phosphatase Lactate Dehydrogenase NT-Pro-B Natriuret Pep Total Protein 3.9 L D Albumin 2.4 L Arterial Blood Glucose Arterial Blood Ionized Calcium Urine WBC (Auto) Vancomycin Trough Phenytoin Crossmatch 10/03/20 10/03/20 10/03/20 02:08 02:08 02:08 WBC 17.6 H RBC 3.27 L Hgb 9.9 L D Hct 29.9 L D MCV MCH MCHC RDW 16.5 H Plt Count 75 L Lymph % (Auto) [place] % (Auto) Lymph # (Auto) [place] # (Auto) Baso # (Auto) Seg Neutrophils % Seg Neuts % (Manual) 76.0 H Lymphocytes % (Manual) Monocytes % (Manual) Nucleated RBC % 8.0 H Seg Neutrophils # Seg Neutrophils # Man 13.4 H Lymphocytes # (Manual) Monocytes # (Manual) PT INR APTT Fibrinogen D-Dimer ABG pH POC ABG pCO2 POC ABG pO2 ABG pO2 ABG HCO3 ABG Base Excess ABG Hemoglobin ABG Oxyhemoglobin ABG Sodium ABG Potassium ABG Chloride ABG Glucose VBG pH Oxyhemoglobin Carboxyhemoglobin Sodium Potassium Chloride Carbon Dioxide 19 L BUN Creatinine 1.4 H Glucose 306 H POC Glucose Lactic Acid 10.50 H* Calcium 6.4 L Ionized Calcium Magnesium AST ALT Alkaline Phosphatase Lactate Dehydrogenase NT-Pro-B Natriuret Pep Total Protein Albumin Arterial Blood Glucose Arterial Blood Ionized Calcium Urine WBC (Auto) Vancomycin Trough Phenytoin Crossmatch 10/03/20 10/03/20 10/03/20 02:42 03:59 05:31 WBC RBC Hgb Hct MCV MCH MCHC RDW Plt Count Lymph % (Auto) [place] % (Auto) Lymph # (Auto) [place] # (Auto) Baso # (Auto) Seg Neutrophils % Seg Neuts % (Manual) Lymphocytes % (Manual) Monocytes % (Manual) Nucleated RBC % Seg Neutrophils # Seg Neutrophils # Man Lymphocytes # (Manual) Monocytes # (Manual) PT INR APTT Fibrinogen D-Dimer ABG pH 7.144 L POC ABG pCO2 54.4 H POC ABG pO2 ABG pO2 ABG HCO3 ABG Base Excess ABG Hemoglobin 10.0 L ABG Oxyhemoglobin ABG Sodium ABG Potassium ABG Chloride 108.0 H ABG Glucose 306 H VBG pH Oxyhemoglobin Carboxyhemoglobin Sodium Potassium Chloride Carbon Dioxide BUN Creatinine Glucose POC Glucose 209 H Lactic Acid 9.20 H* Calcium Ionized Calcium Magnesium AST ALT Alkaline Phosphatase Lactate Dehydrogenase NT-Pro-B Natriuret Pep Total Protein Albumin Arterial Blood Glucose 306 H Arterial Blood Ionized Calcium 3.7 L Urine WBC (Auto) Vancomycin Trough Phenytoin Crossmatch 10/03/20 10/03/20 10/03/20 09:00 09:00 09:00 WBC 27.4 H RBC 2.84 L Hgb 8.5 L Hct 25.1 L MCV MCH MCHC RDW 16.1 H Plt Count 72 L Lymph % (Auto) [place] % (Auto) Lymph # (Auto) [place] # (Auto) Baso # (Auto) Seg Neutrophils % Seg Neuts % (Manual) Lymphocytes % (Manual) 11.0 L Monocytes % (Manual) Nucleated RBC % 3.0 H Seg Neutrophils # Seg Neutrophils # Man 18.4 H Lymphocytes # (Manual) Monocytes # (Manual) 1.9 H PT INR APTT Fibrinogen D-Dimer ABG pH POC ABG pCO2 POC ABG pO2 ABG pO2 ABG HCO3 ABG Base Excess ABG Hemoglobin ABG Oxyhemoglobin ABG Sodium ABG Potassium ABG Chloride ABG Glucose VBG pH Oxyhemoglobin Carboxyhemoglobin Sodium Potassium Chloride Carbon Dioxide BUN Creatinine 1.7 H Glucose 216 H POC Glucose Lactic Acid 9.20 H* Calcium 6.3 L Ionized Calcium Magnesium AST 331 H ALT 171 H Alkaline Phosphatase Lactate Dehydrogenase NT-Pro-B Natriuret Pep Total Protein 3.7 L Albumin 1.9 L Arterial Blood Glucose Arterial Blood Ionized Calcium Urine WBC (Auto) Vancomycin Trough Phenytoin Crossmatch 10/03/20 10/03/20 10/03/20 11:20 11:46 11:50 WBC 28.7 H RBC 2.67 L Hgb 8.0 L Hct 23.7 L MCV MCH MCHC RDW 16.6 H Plt Count 76 L Lymph % (Auto) [place] % (Auto) Lymph # (Auto) [place] # (Auto) Baso # (Auto) Seg Neutrophils % Seg Neuts % (Manual) Lymphocytes % (Manual) Monocytes % (Manual) Nucleated RBC % Seg Neutrophils # Seg Neutrophils # Man Lymphocytes # (Manual) Monocytes # (Manual) PT INR APTT Fibrinogen D-Dimer ABG pH POC ABG pCO2 POC ABG pO2 ABG pO2 ABG HCO3 ABG Base Excess ABG Hemoglobin ABG Oxyhemoglobin ABG Sodium ABG Potassium ABG Chloride ABG Glucose VBG pH Oxyhemoglobin Carboxyhemoglobin Sodium Potassium Chloride Carbon Dioxide BUN Creatinine Glucose POC Glucose 125 H Lactic Acid 8.00 H* Calcium Ionized Calcium Magnesium AST ALT Alkaline Phosphatase Lactate Dehydrogenase NT-Pro-B Natriuret Pep Total Protein Albumin Arterial Blood Glucose Arterial Blood Ionized Calcium Urine WBC (Auto) Vancomycin Trough Phenytoin Crossmatch 10/03/20 10/04/20 10/04/20 11:50 00:40 00:40 WBC RBC Hgb 6.8 L Hct 19.4 L* MCV MCH MCHC RDW Plt Count 49 L Lymph % (Auto) [place] % (Auto) Lymph # (Auto) [place] # (Auto) Baso # (Auto) Seg Neutrophils % Seg Neuts % (Manual) Lymphocytes % (Manual) Monocytes % (Manual) Nucleated RBC % Seg Neutrophils # Seg Neutrophils # Man Lymphocytes # (Manual) Monocytes # (Manual) PT INR APTT Fibrinogen D-Dimer ABG pH 7.244 L POC ABG pCO2 POC ABG pO2 ABG pO2 ABG HCO3 ABG Base Excess -4.5 L ABG Hemoglobin 7.3 L ABG Oxyhemoglobin ABG Sodium ABG Potassium ABG Chloride ABG Glucose VBG pH Oxyhemoglobin Carboxyhemoglobin Sodium Potassium Chloride Carbon Dioxide BUN Creatinine Glucose POC Glucose Lactic Acid Calcium Ionized Calcium Magnesium AST ALT Alkaline Phosphatase Lactate Dehydrogenase NT-Pro-B Natriuret Pep Total Protein Albumin Arterial Blood Glucose Arterial Blood Ionized Calcium Urine WBC (Auto) Vancomycin Trough Phenytoin Crossmatch 10/04/20 10/04/20 10/04/20 03:53 10:00 10:00 WBC 14.6 H RBC 2.57 L Hgb 7.6 L Hct 22.5 L MCV MCH MCHC RDW 15.8 H Plt Count 38 L Lymph % (Auto) 7.7 L [place] % (Auto) Lymph # (Auto) 1.1 L [place] # (Auto) 0.9 H Baso # (Auto) Seg Neutrophils % 85.6 H Seg Neuts % (Manual) Lymphocytes % (Manual) Monocytes % (Manual) Nucleated RBC % Seg Neutrophils # 12.5 H Seg Neutrophils # Man Lymphocytes # (Manual) Monocytes # (Manual) PT INR APTT Fibrinogen D-Dimer ABG pH POC ABG pCO2 POC ABG pO2 110.6 H ABG pO2 ABG HCO3 ABG Base Excess ABG Hemoglobin 6.7 L ABG Oxyhemoglobin ABG Sodium 132.0 L ABG Potassium ABG Chloride ABG Glucose 111 H VBG pH Oxyhemoglobin Carboxyhemoglobin Sodium 134 L D Potassium Chloride 97.6 L Carbon Dioxide BUN Creatinine 1.7 H Glucose POC Glucose Lactic Acid Calcium 6.3 L Ionized Calcium Magnesium AST 203 H ALT 81 H Alkaline Phosphatase Lactate Dehydrogenase NT-Pro-B Natriuret Pep Total Protein 3.9 L Albumin 2.3 L Arterial Blood Glucose 111 H Arterial Blood Ionized Calcium 3.5 L Urine WBC (Auto) Vancomycin Trough Phenytoin Crossmatch 10/04/20 10/04/20 10/04/20 10:00 10:00 10:14 WBC RBC Hgb Hct MCV MCH MCHC RDW Plt Count Lymph % (Auto) [place] % (Auto) Lymph # (Auto) [place] # (Auto) Baso # (Auto) Seg Neutrophils % Seg Neuts % (Manual) Lymphocytes % (Manual) Monocytes % (Manual) Nucleated RBC % Seg Neutrophils # Seg Neutrophils # Man Lymphocytes # (Manual) Monocytes # (Manual) PT INR APTT Fibrinogen D-Dimer > 73968 H ABG pH POC ABG pCO2 POC ABG pO2 ABG pO2 ABG HCO3 ABG Base Excess ABG Hemoglobin ABG Oxyhemoglobin ABG Sodium ABG Potassium ABG Chloride ABG Glucose VBG pH Oxyhemoglobin Carboxyhemoglobin Sodium Potassium Chloride Carbon Dioxide BUN Creatinine Glucose POC Glucose Lactic Acid 3.90 H* Calcium Ionized Calcium Magnesium AST ALT Alkaline Phosphatase Lactate Dehydrogenase NT-Pro-B Natriuret Pep 2788 H Total Protein Albumin Arterial Blood Glucose Arterial Blood Ionized Calcium Urine WBC (Auto) Vancomycin Trough Phenytoin Crossmatch 10/04/20 10/04/20 10/04/20 14:00 14:00 18:00 WBC 15.7 H RBC 3.17 L Hgb 9.3 L 9.6 L Hct 27.2 L 28.0 L MCV MCH MCHC RDW 16.9 H Plt Count 41 L Lymph % (Auto) 8.6 L [place] % (Auto) Lymph # (Auto) [place] # (Auto) 0.9 H Baso # (Auto) Seg Neutrophils % 85.4 H Seg Neuts % (Manual) Lymphocytes % (Manual) Monocytes % (Manual) Nucleated RBC % Seg Neutrophils # 13.4 H Seg Neutrophils # Man Lymphocytes # (Manual) Monocytes # (Manual) PT INR APTT Fibrinogen D-Dimer ABG pH POC ABG pCO2 POC ABG pO2 ABG pO2 ABG HCO3 ABG Base Excess ABG Hemoglobin ABG Oxyhemoglobin ABG Sodium ABG Potassium ABG Chloride ABG Glucose VBG pH Oxyhemoglobin Carboxyhemoglobin Sodium 133 L Potassium Chloride 96.4 L Carbon Dioxide BUN 18 H Creatinine 1.7 H Glucose POC Glucose Lactic Acid Calcium 6.3 L Ionized Calcium Magnesium AST ALT Alkaline Phosphatase Lactate Dehydrogenase NT-Pro-B Natriuret Pep Total Protein Albumin Arterial Blood Glucose Arterial Blood Ionized Calcium Urine WBC (Auto) Vancomycin Trough Phenytoin Crossmatch 10/04/20 10/04/20 10/05/20 18:00 22:00 05:00 WBC 17.6 H RBC 3.34 L Hgb 9.9 L Hct 29.4 L MCV MCH MCHC RDW 17.1 H Plt Count 56 L Lymph % (Auto) 8.5 L [place] % (Auto) Lymph # (Auto) [place] # (Auto) 1.0 H Baso # (Auto) Seg Neutrophils % 85.1 H Seg Neuts % (Manual) Lymphocytes % (Manual) Monocytes % (Manual) Nucleated RBC % Seg Neutrophils # 15.0 H Seg Neutrophils # Man Lymphocytes # (Manual) Monocytes # (Manual) PT INR APTT Fibrinogen D-Dimer ABG pH POC ABG pCO2 POC ABG pO2 ABG pO2 ABG HCO3 ABG Base Excess ABG Hemoglobin ABG Oxyhemoglobin ABG Sodium ABG Potassium ABG Chloride ABG Glucose VBG pH Oxyhemoglobin Carboxyhemoglobin Sodium 136 L Potassium Chloride Carbon Dioxide BUN 18 H Creatinine 1.7 H Glucose POC Glucose Lactic Acid 2.30 H* Calcium 6.6 L Ionized Calcium Magnesium AST ALT Alkaline Phosphatase Lactate Dehydrogenase NT-Pro-B Natriuret Pep Total Protein Albumin Arterial Blood Glucose Arterial Blood Ionized Calcium Urine WBC (Auto) Vancomycin Trough Phenytoin Crossmatch 10/05/20 10/05/20 10/05/20 05:00 05:00 05:03 WBC RBC Hgb Hct MCV MCH MCHC RDW Plt Count Lymph % (Auto) [place] % (Auto) Lymph # (Auto) [place] # (Auto) Baso # (Auto) Seg Neutrophils % Seg Neuts % (Manual) Lymphocytes % (Manual) Monocytes % (Manual) Nucleated RBC % Seg Neutrophils # Seg Neutrophils # Man Lymphocytes # (Manual) Monocytes # (Manual) PT INR APTT Fibrinogen D-Dimer ABG pH 7.458 H POC ABG pCO2 POC ABG pO2 ABG pO2 74.3 L ABG HCO3 27.5 H ABG Base Excess 3.4 H ABG Hemoglobin 10.0 L ABG Oxyhemoglobin ABG Sodium ABG Potassium ABG Chloride ABG Glucose VBG pH Oxyhemoglobin 94.9 L Carboxyhemoglobin Sodium Potassium Chloride Carbon Dioxide BUN 19 H Creatinine 1.8 H Glucose POC Glucose Lactic Acid Calcium 6.8 L Ionized Calcium 3.9 L Magnesium AST 225 H ALT 85 H Alkaline Phosphatase Lactate Dehydrogenase NT-Pro-B Natriuret Pep Total Protein 4.5 L Albumin 2.7 L Arterial Blood Glucose Arterial Blood Ionized Calcium Urine WBC (Auto) Vancomycin Trough Phenytoin Crossmatch 10/05/20 10/05/20 10/05/20 10:10 15:00 19:40 WBC RBC Hgb Hct MCV MCH MCHC RDW Plt Count Lymph % (Auto) [place] % (Auto) Lymph # (Auto) [place] # (Auto) Baso # (Auto) Seg Neutrophils % Seg Neuts % (Manual) Lymphocytes % (Manual) Monocytes % (Manual) Nucleated RBC % Seg Neutrophils # Seg Neutrophils # Man Lymphocytes # (Manual) Monocytes # (Manual) PT INR APTT Fibrinogen D-Dimer ABG pH POC ABG pCO2 POC ABG pO2 ABG pO2 ABG HCO3 ABG Base Excess ABG Hemoglobin ABG Oxyhemoglobin ABG Sodium ABG Potassium ABG Chloride ABG Glucose VBG pH Oxyhemoglobin Carboxyhemoglobin Sodium Potassium 3.5 L Chloride Carbon Dioxide 31 H 32 H BUN 19 H 19 H Creatinine 1.8 H 1.8 H Glucose POC Glucose Lactic Acid Calcium 7.0 L 7.2 L Ionized Calcium Magnesium 2.90 H AST ALT Alkaline Phosphatase Lactate Dehydrogenase NT-Pro-B Natriuret Pep Total Protein Albumin Arterial Blood Glucose Arterial Blood Ionized Calcium Urine WBC (Auto) Vancomycin Trough Phenytoin Crossmatch 10/06/20 10/06/20 10/06/20 01:05 03:12 04:00 WBC 17.1 H RBC 3.47 L Hgb Hct MCV MCH MCHC RDW 17.4 H Plt Count 82 L Lymph % (Auto) 8.3 L [place] % (Auto) Lymph # (Auto) [place] # (Auto) 1.1 H Baso # (Auto) Seg Neutrophils % 83.8 H Seg Neuts % (Manual) Lymphocytes % (Manual) Monocytes % (Manual) Nucleated RBC % Seg Neutrophils # 14.3 H Seg Neutrophils # Man Lymphocytes # (Manual) Monocytes # (Manual) PT INR APTT Fibrinogen D-Dimer ABG pH 7.474 H POC ABG pCO2 POC ABG pO2 129.5 H ABG pO2 ABG HCO3 ABG Base Excess ABG Hemoglobin 11.4 L ABG Oxyhemoglobin ABG Sodium 131.8 L ABG Potassium ABG Chloride ABG Glucose 103 H VBG pH Oxyhemoglobin Carboxyhemoglobin 0.3 L Sodium Potassium Chloride Carbon Dioxide BUN Creatinine Glucose POC Glucose Lactic Acid Calcium Ionized Calcium Magnesium 3.70 H AST ALT Alkaline Phosphatase Lactate Dehydrogenase NT-Pro-B Natriuret Pep Total Protein Albumin Arterial Blood Glucose 103 H Arterial Blood Ionized Calcium 4.2 L Urine WBC (Auto) Vancomycin Trough Phenytoin Crossmatch 10/06/20 10/06/20 10/06/20 04:00 05:31 08:12 WBC RBC Hgb Hct MCV MCH MCHC RDW Plt Count Lymph % (Auto) [place] % (Auto) Lymph # (Auto) [place] # (Auto) Baso # (Auto) Seg Neutrophils % Seg Neuts % (Manual) Lymphocytes % (Manual) Monocytes % (Manual) Nucleated RBC % Seg Neutrophils # Seg Neutrophils # Man Lymphocytes # (Manual) Monocytes # (Manual) PT INR APTT Fibrinogen D-Dimer ABG pH POC ABG pCO2 POC ABG pO2 ABG pO2 ABG HCO3 ABG Base Excess ABG Hemoglobin ABG Oxyhemoglobin ABG Sodium ABG Potassium ABG Chloride ABG Glucose VBG pH Oxyhemoglobin Carboxyhemoglobin Sodium Potassium 3.5 L Chloride Carbon Dioxide BUN 19 H Creatinine 1.8 H Glucose 102 H POC Glucose 116 H Lactic Acid Calcium 7.2 L Ionized Calcium Magnesium 5.40 H AST 307 H ALT 137 H Alkaline Phosphatase Lactate Dehydrogenase NT-Pro-B Natriuret Pep Total Protein 4.5 L Albumin 2.6 L Arterial Blood Glucose Arterial Blood Ionized Calcium Urine WBC (Auto) Vancomycin Trough Phenytoin Crossmatch 10/06/20 10/06/20 10/06/20 11:00 11:50 20:13 WBC RBC Hgb Hct MCV MCH MCHC RDW Plt Count Lymph % (Auto) [place] % (Auto) Lymph # (Auto) [place] # (Auto) Baso # (Auto) Seg Neutrophils % Seg Neuts % (Manual) Lymphocytes % (Manual) Monocytes % (Manual) Nucleated RBC % Seg Neutrophils # Seg Neutrophils # Man Lymphocytes # (Manual) Monocytes # (Manual) PT INR APTT Fibrinogen D-Dimer ABG pH POC ABG pCO2 POC ABG pO2 ABG pO2 ABG HCO3 ABG Base Excess ABG Hemoglobin ABG Oxyhemoglobin ABG Sodium ABG Potassium ABG Chloride ABG Glucose VBG pH Oxyhemoglobin Carboxyhemoglobin Sodium Potassium Chloride Carbon Dioxide BUN Creatinine Glucose POC Glucose 106 H Lactic Acid Calcium Ionized Calcium Magnesium 6.50 H 6.20 H AST ALT Alkaline Phosphatase Lactate Dehydrogenase NT-Pro-B Natriuret Pep Total Protein Albumin Arterial Blood Glucose Arterial Blood Ionized Calcium Urine WBC (Auto) Vancomycin Trough Phenytoin Crossmatch 10/06/20 10/06/20 10/06/20 20:17 22:29 23:57 WBC RBC Hgb Hct MCV MCH MCHC RDW Plt Count Lymph % (Auto) [place] % (Auto) Lymph # (Auto) [place] # (Auto) Baso # (Auto) Seg Neutrophils % Seg Neuts % (Manual) Lymphocytes % (Manual) Monocytes % (Manual) Nucleated RBC % Seg Neutrophils # Seg Neutrophils # Man Lymphocytes # (Manual) Monocytes # (Manual) PT INR APTT Fibrinogen D-Dimer ABG pH POC ABG pCO2 POC ABG pO2 ABG pO2 ABG HCO3 ABG Base Excess ABG Hemoglobin ABG Oxyhemoglobin ABG Sodium ABG Potassium ABG Chloride ABG Glucose VBG pH Oxyhemoglobin Carboxyhemoglobin Sodium Potassium Chloride Carbon Dioxide BUN Creatinine Glucose POC Glucose 112 H 126 H 133 H Lactic Acid Calcium Ionized Calcium Magnesium AST ALT Alkaline Phosphatase Lactate Dehydrogenase NT-Pro-B Natriuret Pep Total Protein Albumin Arterial Blood Glucose Arterial Blood Ionized Calcium Urine WBC (Auto) Vancomycin Trough Phenytoin Crossmatch 10/07/20 10/07/20 10/07/20 00:35 02:22 03:16 WBC RBC Hgb Hct MCV MCH MCHC RDW Plt Count Lymph % (Auto) [place] % (Auto) Lymph # (Auto) [place] # (Auto) Baso # (Auto) Seg Neutrophils % Seg Neuts % (Manual) Lymphocytes % (Manual) Monocytes % (Manual) Nucleated RBC % Seg Neutrophils # Seg Neutrophils # Man Lymphocytes # (Manual) Monocytes # (Manual) PT INR APTT Fibrinogen D-Dimer ABG pH POC ABG pCO2 POC ABG pO2 ABG pO2 ABG HCO3 ABG Base Excess ABG Hemoglobin 11.6 L ABG Oxyhemoglobin ABG Sodium ABG Potassium ABG Chloride ABG Glucose 156 H VBG pH Oxyhemoglobin Carboxyhemoglobin 0.3 L Sodium Potassium Chloride Carbon Dioxide BUN Creatinine Glucose POC Glucose 124 H Lactic Acid Calcium Ionized Calcium Magnesium 5.90 H AST ALT Alkaline Phosphatase Lactate Dehydrogenase NT-Pro-B Natriuret Pep Total Protein Albumin Arterial Blood Glucose 156 H Arterial Blood Ionized Calcium 4.2 L Urine WBC (Auto) Vancomycin Trough Phenytoin Crossmatch 10/07/20 10/07/20 10/07/20 04:06 05:45 07:05 WBC 19.2 H RBC 3.57 L Hgb Hct MCV MCH MCHC 35 H RDW 17.1 H Plt Count 129 L Lymph % (Auto) [place] % (Auto) Lymph # (Auto) [place] # (Auto) Baso # (Auto) Seg Neutrophils % Seg Neuts % (Manual) 94.0 H Lymphocytes % (Manual) 6.0 L Monocytes % (Manual) Nucleated RBC % Seg Neutrophils # Seg Neutrophils # Man 18.0 H Lymphocytes # (Manual) Monocytes # (Manual) PT INR APTT Fibrinogen D-Dimer ABG pH POC ABG pCO2 POC ABG pO2 ABG pO2 ABG HCO3 ABG Base Excess ABG Hemoglobin ABG Oxyhemoglobin ABG Sodium ABG Potassium ABG Chloride ABG Glucose VBG pH Oxyhemoglobin Carboxyhemoglobin Sodium Potassium Chloride Carbon Dioxide BUN Creatinine Glucose POC Glucose 135 H 149 H Lactic Acid Calcium Ionized Calcium Magnesium AST ALT Alkaline Phosphatase Lactate Dehydrogenase NT-Pro-B Natriuret Pep Total Protein Albumin Arterial Blood Glucose Arterial Blood Ionized Calcium Urine WBC (Auto) Vancomycin Trough Phenytoin Crossmatch 10/07/20 10/07/20 10/07/20 07:05 07:05 12:21 WBC RBC Hgb Hct MCV MCH MCHC RDW Plt Count Lymph % (Auto) [place] % (Auto) Lymph # (Auto) [place] # (Auto) Baso # (Auto) Seg Neutrophils % Seg Neuts % (Manual) Lymphocytes % (Manual) Monocytes % (Manual) Nucleated RBC % Seg Neutrophils # Seg Neutrophils # Man Lymphocytes # (Manual) Monocytes # (Manual) PT INR APTT Fibrinogen D-Dimer ABG pH POC ABG pCO2 POC ABG pO2 ABG pO2 ABG HCO3 ABG Base Excess ABG Hemoglobin ABG Oxyhemoglobin ABG Sodium ABG Potassium ABG Chloride ABG Glucose VBG pH Oxyhemoglobin Carboxyhemoglobin Sodium Potassium Chloride Carbon Dioxide BUN 21 H Creatinine 1.7 H Glucose 171 H POC Glucose 124 H Lactic Acid Calcium 7.4 L Ionized Calcium Magnesium 6.10 H AST 245 H ALT 147 H Alkaline Phosphatase Lactate Dehydrogenase NT-Pro-B Natriuret Pep Total Protein 5.3 L Albumin 2.8 L Arterial Blood Glucose Arterial Blood Ionized Calcium Urine WBC (Auto) Vancomycin Trough Phenytoin Crossmatch 10/07/20 10/07/20 10/07/20 19:52 21:00 21:50 WBC RBC Hgb Hct MCV MCH MCHC RDW Plt Count Lymph % (Auto) [place] % (Auto) Lymph # (Auto) [place] # (Auto) Baso # (Auto) Seg Neutrophils % Seg Neuts % (Manual) Lymphocytes % (Manual) Monocytes % (Manual) Nucleated RBC % Seg Neutrophils # Seg Neutrophils # Man Lymphocytes # (Manual) Monocytes # (Manual) PT INR APTT Fibrinogen D-Dimer ABG pH POC ABG pCO2 POC ABG pO2 ABG pO2 ABG HCO3 ABG Base Excess ABG Hemoglobin ABG Oxyhemoglobin ABG Sodium ABG Potassium ABG Chloride ABG Glucose VBG pH Oxyhemoglobin Carboxyhemoglobin Sodium Potassium Chloride Carbon Dioxide BUN Creatinine Glucose POC Glucose 193 H 138 H Lactic Acid Calcium Ionized Calcium 4.4 L Magnesium AST ALT Alkaline Phosphatase Lactate Dehydrogenase NT-Pro-B Natriuret Pep Total Protein Albumin Arterial Blood Glucose Arterial Blood Ionized Calcium Urine WBC (Auto) Vancomycin Trough Phenytoin Crossmatch 10/07/20 10/08/20 10/08/20 23:41 04:20 05:30 WBC RBC Hgb Hct MCV MCH MCHC RDW Plt Count Lymph % (Auto) [place] % (Auto) Lymph # (Auto) [place] # (Auto) Baso # (Auto) Seg Neutrophils % Seg Neuts % (Manual) Lymphocytes % (Manual) Monocytes % (Manual) Nucleated RBC % Seg Neutrophils # Seg Neutrophils # Man Lymphocytes # (Manual) Monocytes # (Manual) PT INR APTT Fibrinogen D-Dimer ABG pH 7.467 H POC ABG pCO2 POC ABG pO2 189.8 H ABG pO2 ABG HCO3 ABG Base Excess ABG Hemoglobin 10.8 L ABG Oxyhemoglobin ABG Sodium ABG Potassium ABG Chloride ABG Glucose 133 H VBG pH Oxyhemoglobin Carboxyhemoglobin Sodium Potassium Chloride Carbon Dioxide BUN Creatinine Glucose POC Glucose 118 H 114 H Lactic Acid Calcium Ionized Calcium Magnesium AST ALT Alkaline Phosphatase Lactate Dehydrogenase NT-Pro-B Natriuret Pep Total Protein Albumin Arterial Blood Glucose 133 H Arterial Blood Ionized Calcium 4.2 L Urine WBC (Auto) Vancomycin Trough Phenytoin Crossmatch 10/08/20 10/08/20 10/08/20 05:43 06:42 06:42 WBC 23.6 H RBC 3.54 L Hgb Hct MCV MCH MCHC RDW 17.8 H Plt Count Lymph % (Auto) [place] % (Auto) Lymph # (Auto) [place] # (Auto) Baso # (Auto) Seg Neutrophils % Seg Neuts % (Manual) 93.0 H Lymphocytes % (Manual) 3.0 L Monocytes % (Manual) Nucleated RBC % 1.0 H Seg Neutrophils # Seg Neutrophils # Man 21.9 H Lymphocytes # (Manual) 0.7 L Monocytes # (Manual) 0.9 H PT INR APTT Fibrinogen D-Dimer ABG pH POC ABG pCO2 POC ABG pO2 ABG pO2 ABG HCO3 ABG Base Excess ABG Hemoglobin ABG Oxyhemoglobin ABG Sodium ABG Potassium ABG Chloride ABG Glucose VBG pH Oxyhemoglobin Carboxyhemoglobin Sodium Potassium Chloride Carbon Dioxide BUN 28 H Creatinine 1.6 H Glucose 141 H POC Glucose 126 H Lactic Acid Calcium 7.6 L Ionized Calcium Magnesium AST 162 H ALT 103 H Alkaline Phosphatase Lactate Dehydrogenase NT-Pro-B Natriuret Pep Total Protein 5.4 L Albumin 2.7 L Arterial Blood Glucose Arterial Blood Ionized Calcium Urine WBC (Auto) Vancomycin Trough Phenytoin Crossmatch 10/08/20 10/08/20 10/08/20 11:20 16:05 20:14 WBC RBC Hgb Hct MCV MCH MCHC RDW Plt Count Lymph % (Auto) [place] % (Auto) Lymph # (Auto) [place] # (Auto) Baso # (Auto) Seg Neutrophils % Seg Neuts % (Manual) Lymphocytes % (Manual) Monocytes % (Manual) Nucleated RBC % Seg Neutrophils # Seg Neutrophils # Man Lymphocytes # (Manual) Monocytes # (Manual) PT INR APTT Fibrinogen D-Dimer ABG pH POC ABG pCO2 POC ABG pO2 ABG pO2 ABG HCO3 ABG Base Excess ABG Hemoglobin ABG Oxyhemoglobin ABG Sodium ABG Potassium ABG Chloride ABG Glucose VBG pH Oxyhemoglobin Carboxyhemoglobin Sodium Potassium Chloride Carbon Dioxide BUN Creatinine Glucose POC Glucose 127 H 172 H 147 H Lactic Acid Calcium Ionized Calcium Magnesium AST ALT Alkaline Phosphatase Lactate Dehydrogenase NT-Pro-B Natriuret Pep Total Protein Albumin Arterial Blood Glucose Arterial Blood Ionized Calcium Urine WBC (Auto) Vancomycin Trough Phenytoin Crossmatch 10/08/20 10/08/20 10/09/20 21:27 23:24 02:10 WBC RBC Hgb Hct MCV MCH MCHC RDW Plt Count Lymph % (Auto) [place] % (Auto) Lymph # (Auto) [place] # (Auto) Baso # (Auto) Seg Neutrophils % Seg Neuts % (Manual) Lymphocytes % (Manual) Monocytes % (Manual) Nucleated RBC % Seg Neutrophils # Seg Neutrophils # Man Lymphocytes # (Manual) Monocytes # (Manual) PT INR APTT Fibrinogen D-Dimer ABG pH POC ABG pCO2 POC ABG pO2 ABG pO2 ABG HCO3 ABG Base Excess ABG Hemoglobin ABG Oxyhemoglobin ABG Sodium ABG Potassium ABG Chloride ABG Glucose VBG pH Oxyhemoglobin Carboxyhemoglobin Sodium Potassium Chloride Carbon Dioxide BUN Creatinine Glucose POC Glucose 140 H 135 H 111 H Lactic Acid Calcium Ionized Calcium Magnesium AST ALT Alkaline Phosphatase Lactate Dehydrogenase NT-Pro-B Natriuret Pep Total Protein Albumin Arterial Blood Glucose Arterial Blood Ionized Calcium Urine WBC (Auto) Vancomycin Trough Phenytoin Crossmatch 10/09/20 10/09/20 10/09/20 03:44 04:39 05:46 WBC 19.7 H RBC 3.51 L Hgb Hct MCV MCH MCHC RDW 17.7 H Plt Count Lymph % (Auto) [place] % (Auto) Lymph # (Auto) [place] # (Auto) Baso # (Auto) Seg Neutrophils % Seg Neuts % (Manual) 86.0 H Lymphocytes % (Manual) 4.0 L Monocytes % (Manual) 9.0 H Nucleated RBC % Seg Neutrophils # Seg Neutrophils # Man 16.9 H Lymphocytes # (Manual) 0.8 L Monocytes # (Manual) 1.8 H PT INR APTT Fibrinogen D-Dimer ABG pH 7.513 H POC ABG pCO2 POC ABG pO2 33.6 L ABG pO2 ABG HCO3 ABG Base Excess ABG Hemoglobin 11.1 L ABG Oxyhemoglobin 70.2 L ABG Sodium ABG Potassium 3.2 L ABG Chloride 108.0 H ABG Glucose 108 H VBG pH Oxyhemoglobin Carboxyhemoglobin Sodium Potassium Chloride Carbon Dioxide BUN Creatinine Glucose POC Glucose 109 H Lactic Acid Calcium Ionized Calcium Magnesium AST ALT Alkaline Phosphatase Lactate Dehydrogenase NT-Pro-B Natriuret Pep Total Protein Albumin Arterial Blood Glucose 108 H Arterial Blood Ionized Calcium 4.3 L Urine WBC (Auto) Vancomycin Trough Phenytoin Crossmatch 10/09/20 10/10/20 10/10/20 05:46 04:00 04:00 WBC 18.4 H RBC Hgb Hct MCV MCH MCHC RDW 17.5 H Plt Count Lymph % (Auto) 9.8 L [place] % (Auto) 8.8 H Lymph # (Auto) [place] # (Auto) 1.6 H Baso # (Auto) Seg Neutrophils % 80.0 H Seg Neuts % (Manual) Lymphocytes % (Manual) Monocytes % (Manual) Nucleated RBC % Seg Neutrophils # 14.7 H Seg Neutrophils # Man Lymphocytes # (Manual) Monocytes # (Manual) PT INR APTT Fibrinogen D-Dimer ABG pH POC ABG pCO2 POC ABG pO2 ABG pO2 ABG HCO3 ABG Base Excess ABG Hemoglobin ABG Oxyhemoglobin ABG Sodium ABG Potassium ABG Chloride ABG Glucose VBG pH Oxyhemoglobin Carboxyhemoglobin Sodium 146 H Potassium 3.2 L 2.9 L* Chloride 108.9 H 112.6 H Carbon Dioxide BUN 34 H 28 H Creatinine 1.4 H 1.3 H Glucose 109 H 101 H POC Glucose Lactic Acid Calcium 7.6 L 7.8 L Ionized Calcium Magnesium AST 137 H 122 H ALT 99 H 81 H Alkaline Phosphatase Lactate Dehydrogenase NT-Pro-B Natriuret Pep Total Protein 5.1 L 5.2 L Albumin 2.6 L 2.7 L Arterial Blood Glucose Arterial Blood Ionized Calcium Urine WBC (Auto) Vancomycin Trough Phenytoin Crossmatch 10/10/20 10/10/20 10/11/20 04:42 09:50 00:44 WBC RBC Hgb Hct MCV MCH MCHC RDW Plt Count Lymph % (Auto) [place] % (Auto) Lymph # (Auto) [place] # (Auto) Baso # (Auto) Seg Neutrophils % Seg Neuts % (Manual) Lymphocytes % (Manual) Monocytes % (Manual) Nucleated RBC % Seg Neutrophils # Seg Neutrophils # Man Lymphocytes # (Manual) Monocytes # (Manual) PT INR APTT Fibrinogen D-Dimer ABG pH 7.534 H POC ABG pCO2 POC ABG pO2 ABG pO2 95.2 H ABG HCO3 ABG Base Excess ABG Hemoglobin 11.3 L ABG Oxyhemoglobin ABG Sodium ABG Potassium ABG Chloride ABG Glucose VBG pH Oxyhemoglobin Carboxyhemoglobin Sodium Potassium Chloride Carbon Dioxide BUN Creatinine Glucose POC Glucose 109 H 106 H Lactic Acid Calcium Ionized Calcium Magnesium AST ALT Alkaline Phosphatase Lactate Dehydrogenase NT-Pro-B Natriuret Pep Total Protein Albumin Arterial Blood Glucose Arterial Blood Ionized Calcium Urine WBC (Auto) Vancomycin Trough Phenytoin Crossmatch 10/11/20 10/11/20 10/11/20 04:00 04:00 06:08 WBC 27.0 H RBC Hgb Hct MCV MCH MCHC RDW 17.7 H Plt Count Lymph % (Auto) 6.3 L [place] % (Auto) Lymph # (Auto) [place] # (Auto) 1.5 H Baso # (Auto) Seg Neutrophils % 87.1 H Seg Neuts % (Manual) Lymphocytes % (Manual) Monocytes % (Manual) Nucleated RBC % Seg Neutrophils # 23.5 H Seg Neutrophils # Man Lymphocytes # (Manual) Monocytes # (Manual) PT INR APTT Fibrinogen D-Dimer ABG pH POC ABG pCO2 POC ABG pO2 ABG pO2 ABG HCO3 ABG Base Excess ABG Hemoglobin ABG Oxyhemoglobin ABG Sodium ABG Potassium ABG Chloride ABG Glucose VBG pH Oxyhemoglobin Carboxyhemoglobin Sodium Potassium 3.2 L Chloride 110.4 H Carbon Dioxide 19 L BUN 22 H Creatinine Glucose 116 H POC Glucose 107 H Lactic Acid Calcium 7.7 L Ionized Calcium Magnesium 1.60 L AST ALT Alkaline Phosphatase Lactate Dehydrogenase NT-Pro-B Natriuret Pep Total Protein Albumin Arterial Blood Glucose Arterial Blood Ionized Calcium Urine WBC (Auto) Vancomycin Trough Phenytoin Crossmatch 10/11/20 10/11/20 10/12/20 11:41 13:26 03:52 WBC RBC Hgb Hct MCV MCH MCHC RDW Plt Count Lymph % (Auto) [place] % (Auto) Lymph # (Auto) [place] # (Auto) Baso # (Auto) Seg Neutrophils % Seg Neuts % (Manual) Lymphocytes % (Manual) Monocytes % (Manual) Nucleated RBC % Seg Neutrophils # Seg Neutrophils # Man Lymphocytes # (Manual) Monocytes # (Manual) PT INR APTT Fibrinogen D-Dimer ABG pH POC ABG pCO2 POC ABG pO2 ABG pO2 ABG HCO3 ABG Base Excess ABG Hemoglobin ABG Oxyhemoglobin ABG Sodium ABG Potassium ABG Chloride ABG Glucose VBG pH Oxyhemoglobin Carboxyhemoglobin Sodium Potassium Chloride Carbon Dioxide BUN Creatinine Glucose POC Glucose 116 H 114 H Lactic Acid Calcium Ionized Calcium Magnesium AST ALT Alkaline Phosphatase Lactate Dehydrogenase NT-Pro-B Natriuret Pep Total Protein Albumin Arterial Blood Glucose Arterial Blood Ionized Calcium Urine WBC (Auto) 24.0 H Vancomycin Trough Phenytoin Crossmatch 10/12/20 10/12/20 10/12/20 04:24 14:47 21:33 WBC RBC Hgb Hct MCV MCH MCHC RDW Plt Count Lymph % (Auto) [place] % (Auto) Lymph # (Auto) [place] # (Auto) Baso # (Auto) Seg Neutrophils % Seg Neuts % (Manual) Lymphocytes % (Manual) Monocytes % (Manual) Nucleated RBC % Seg Neutrophils # Seg Neutrophils # Man Lymphocytes # (Manual) Monocytes # (Manual) PT INR APTT Fibrinogen D-Dimer ABG pH POC ABG pCO2 POC ABG pO2 ABG pO2 ABG HCO3 ABG Base Excess ABG Hemoglobin ABG Oxyhemoglobin ABG Sodium ABG Potassium ABG Chloride ABG Glucose VBG pH Oxyhemoglobin Carboxyhemoglobin Sodium Potassium Chloride 109.9 H Carbon Dioxide 13 L BUN 18 H Creatinine Glucose 119 H POC Glucose 107 H Lactic Acid Calcium 7.6 L Ionized Calcium Magnesium 1.60 L AST ALT Alkaline Phosphatase Lactate Dehydrogenase NT-Pro-B Natriuret Pep Total Protein Albumin Arterial Blood Glucose Arterial Blood Ionized Calcium Urine WBC (Auto) Vancomycin Trough Phenytoin Crossmatch 10/12/20 10/12/20 10/13/20 Unknown Unknown 07:00 WBC 24.3 H RBC 3.38 L Hgb 9.8 L Hct MCV MCH MCHC RDW 18.7 H Plt Count Lymph % (Auto) [place] % (Auto) Lymph # (Auto) [place] # (Auto) Baso # (Auto) Seg Neutrophils % Seg Neuts % (Manual) 93.5 H Lymphocytes % (Manual) 4.5 L Monocytes % (Manual) Nucleated RBC % Seg Neutrophils # Seg Neutrophils # Man 22.7 H Lymphocytes # (Manual) 1.1 L Monocytes # (Manual) PT INR APTT Fibrinogen D-Dimer ABG pH POC ABG pCO2 POC ABG pO2 ABG pO2 ABG HCO3 ABG Base Excess ABG Hemoglobin ABG Oxyhemoglobin ABG Sodium ABG Potassium ABG Chloride ABG Glucose VBG pH Oxyhemoglobin Carboxyhemoglobin Sodium 135 L D Potassium 3.1 L Chloride Carbon Dioxide 17 L BUN Creatinine Glucose 510 H* POC Glucose Lactic Acid Calcium 7.2 L Ionized Calcium Magnesium AST ALT Alkaline Phosphatase Lactate Dehydrogenase NT-Pro-B Natriuret Pep Total Protein Albumin Arterial Blood Glucose Arterial Blood Ionized Calcium Urine WBC (Auto) Vancomycin Trough Phenytoin 5.7 L Crossmatch 10/13/20 10/13/20 10/13/20 07:00 07:00 07:18 WBC 23.6 H RBC 3.26 L Hgb 9.4 L Hct 28.7 L MCV MCH MCHC RDW 18.3 H Plt Count Lymph % (Auto) [place] % (Auto) Lymph # (Auto) [place] # (Auto) Baso # (Auto) Seg Neutrophils % Seg Neuts % (Manual) Lymphocytes % (Manual) Monocytes % (Manual) Nucleated RBC % Seg Neutrophils # Seg Neutrophils # Man Lymphocytes # (Manual) Monocytes # (Manual) PT INR APTT Fibrinogen D-Dimer ABG pH 7.473 H POC ABG pCO2 20.7 L POC ABG pO2 137.9 H ABG pO2 ABG HCO3 ABG Base Excess ABG Hemoglobin 11.2 L ABG Oxyhemoglobin 98.3 H ABG Sodium 135.9 L ABG Potassium ABG Chloride 111.0 H ABG Glucose 109 H VBG pH Oxyhemoglobin Carboxyhemoglobin 0.3 L Sodium 135 L Potassium 3.5 L Chloride 109.1 H Carbon Dioxide 18 L BUN Creatinine Glucose POC Glucose Lactic Acid Calcium 7.3 L Ionized Calcium Magnesium 1.60 L AST ALT Alkaline Phosphatase Lactate Dehydrogenase NT-Pro-B Natriuret Pep Total Protein Albumin Arterial Blood Glucose 109 H Arterial Blood Ionized Calcium Urine WBC (Auto) Vancomycin Trough Phenytoin Crossmatch 10/14/20 10/14/20 10/15/20 04:00 04:00 05:50 WBC 28.6 H 23.2 H RBC 3.61 L 3.43 L Hgb 9.9 L Hct 30.0 L MCV MCH MCHC RDW 18.3 H 18.2 H Plt Count Lymph % (Auto) [place] % (Auto) Lymph # (Auto) [place] # (Auto) Baso # (Auto) Seg Neutrophils % Seg Neuts % (Manual) 88.0 H 90.0 H Lymphocytes % (Manual) 5.0 L 4.0 L Monocytes % (Manual) Nucleated RBC % Seg Neutrophils # Seg Neutrophils # Man 25.2 H 20.9 H Lymphocytes # (Manual) 0.9 L Monocytes # (Manual) 1.4 H 0.9 H PT INR APTT Fibrinogen D-Dimer ABG pH POC ABG pCO2 POC ABG pO2 ABG pO2 ABG HCO3 ABG Base Excess ABG Hemoglobin ABG Oxyhemoglobin ABG Sodium ABG Potassium ABG Chloride ABG Glucose VBG pH Oxyhemoglobin Carboxyhemoglobin Sodium Potassium Chloride 109.9 H Carbon Dioxide 17 L BUN Creatinine Glucose POC Glucose Lactic Acid Calcium Ionized Calcium Magnesium AST ALT Alkaline Phosphatase Lactate Dehydrogenase NT-Pro-B Natriuret Pep Total Protein Albumin Arterial Blood Glucose Arterial Blood Ionized Calcium Urine WBC (Auto) Vancomycin Trough Phenytoin Crossmatch 10/15/20 10/16/20 10/17/20 05:50 11:57 04:57 WBC 15.2 H RBC 3.43 L Hgb Hct MCV MCH MCHC RDW 18.1 H Plt Count Lymph % (Auto) [place] % (Auto) Lymph # (Auto) [place] # (Auto) Baso # (Auto) Seg Neutrophils % Seg Neuts % (Manual) Lymphocytes % (Manual) Monocytes % (Manual) Nucleated RBC % Seg Neutrophils # Seg Neutrophils # Man Lymphocytes # (Manual) Monocytes # (Manual) PT INR APTT Fibrinogen D-Dimer ABG pH POC ABG pCO2 POC ABG pO2 ABG pO2 ABG HCO3 ABG Base Excess ABG Hemoglobin ABG Oxyhemoglobin ABG Sodium ABG Potassium ABG Chloride ABG Glucose VBG pH Oxyhemoglobin Carboxyhemoglobin Sodium Potassium Chloride 110.3 H Carbon Dioxide 18 L BUN Creatinine Glucose 105 H POC Glucose 111 H Lactic Acid Calcium 8.3 L Ionized Calcium Magnesium AST ALT Alkaline Phosphatase Lactate Dehydrogenase NT-Pro-B Natriuret Pep Total Protein Albumin Arterial Blood Glucose Arterial Blood Ionized Calcium Urine WBC (Auto) Vancomycin Trough Phenytoin Crossmatch 10/17/20 10/17/20 10/18/20 05:25 21:16 01:31 WBC RBC Hgb Hct MCV MCH MCHC RDW Plt Count Lymph % (Auto) [place] % (Auto) Lymph # (Auto) [place] # (Auto) Baso # (Auto) Seg Neutrophils % Seg Neuts % (Manual) Lymphocytes % (Manual) Monocytes % (Manual) Nucleated RBC % Seg Neutrophils # Seg Neutrophils # Man Lymphocytes # (Manual) Monocytes # (Manual) PT INR APTT Fibrinogen D-Dimer ABG pH POC ABG pCO2 POC ABG pO2 ABG pO2 ABG HCO3 ABG Base Excess ABG Hemoglobin ABG Oxyhemoglobin ABG Sodium ABG Potassium ABG Chloride ABG Glucose VBG pH Oxyhemoglobin Carboxyhemoglobin Sodium Potassium Chloride Carbon Dioxide BUN Creatinine Glucose POC Glucose 107 H 106 H 119 H Lactic Acid Calcium Ionized Calcium Magnesium AST ALT Alkaline Phosphatase Lactate Dehydrogenase NT-Pro-B Natriuret Pep Total Protein Albumin Arterial Blood Glucose Arterial Blood Ionized Calcium Urine WBC (Auto) Vancomycin Trough Phenytoin Crossmatch 10/18/20 10/18/20 10/19/20 05:45 11:23 01:14 WBC RBC Hgb Hct MCV MCH MCHC RDW Plt Count Lymph % (Auto) [place] % (Auto) Lymph # (Auto) [place] # (Auto) Baso # (Auto) Seg Neutrophils % Seg Neuts % (Manual) Lymphocytes % (Manual) Monocytes % (Manual) Nucleated RBC % Seg Neutrophils # Seg Neutrophils # Man Lymphocytes # (Manual) Monocytes # (Manual) PT INR APTT Fibrinogen D-Dimer ABG pH POC ABG pCO2 POC ABG pO2 ABG pO2 ABG HCO3 ABG Base Excess ABG Hemoglobin ABG Oxyhemoglobin ABG Sodium ABG Potassium ABG Chloride ABG Glucose VBG pH Oxyhemoglobin Carboxyhemoglobin Sodium Potassium Chloride Carbon Dioxide BUN Creatinine Glucose POC Glucose 106 H 115 H 108 H Lactic Acid Calcium Ionized Calcium Magnesium AST ALT Alkaline Phosphatase Lactate Dehydrogenase NT-Pro-B Natriuret Pep Total Protein Albumin Arterial Blood Glucose Arterial Blood Ionized Calcium Urine WBC (Auto) Vancomycin Trough Phenytoin Crossmatch 10/19/20 10/20/20 10/20/20 09:57 05:40 07:59 WBC RBC Hgb Hct MCV MCH MCHC RDW Plt Count Lymph % (Auto) [place] % (Auto) Lymph # (Auto) [place] # (Auto) Baso # (Auto) Seg Neutrophils % Seg Neuts % (Manual) Lymphocytes % (Manual) Monocytes % (Manual) Nucleated RBC % Seg Neutrophils # Seg Neutrophils # Man Lymphocytes # (Manual) Monocytes # (Manual) PT INR APTT Fibrinogen D-Dimer ABG pH POC ABG pCO2 POC ABG pO2 ABG pO2 ABG HCO3 ABG Base Excess ABG Hemoglobin ABG Oxyhemoglobin ABG Sodium ABG Potassium ABG Chloride ABG Glucose VBG pH Oxyhemoglobin Carboxyhemoglobin Sodium Potassium Chloride Carbon Dioxide BUN Creatinine Glucose 106 H POC Glucose 122 H 109 H Lactic Acid Calcium Ionized Calcium Magnesium AST ALT Alkaline Phosphatase Lactate Dehydrogenase NT-Pro-B Natriuret Pep Total Protein Albumin Arterial Blood Glucose Arterial Blood Ionized Calcium Urine WBC (Auto) Vancomycin Trough Phenytoin Crossmatch 10/20/20 10/20/20 10/21/20 16:52 16:52 13:54 WBC 18.8 H 17.0 H RBC Hgb Hct MCV MCH MCHC RDW 17.7 H 17.8 H Plt Count 547 H 544 H Lymph % (Auto) 11.2 L [place] % (Auto) 8.1 H Lymph # (Auto) [place] # (Auto) 1.5 H Baso # (Auto) 0.2 H Seg Neutrophils % 78.8 H Seg Neuts % (Manual) Lymphocytes % (Manual) Monocytes % (Manual) Nucleated RBC % Seg Neutrophils # 14.8 H Seg Neutrophils # Man Lymphocytes # (Manual) Monocytes # (Manual) PT INR APTT Fibrinogen D-Dimer ABG pH POC ABG pCO2 POC ABG pO2 ABG pO2 ABG HCO3 ABG Base Excess ABG Hemoglobin ABG Oxyhemoglobin ABG Sodium ABG Potassium ABG Chloride ABG Glucose VBG pH Oxyhemoglobin Carboxyhemoglobin Sodium Potassium Chloride Carbon Dioxide BUN Creatinine Glucose POC Glucose Lactic Acid Calcium Ionized Calcium Magnesium AST ALT Alkaline Phosphatase Lactate Dehydrogenase NT-Pro-B Natriuret Pep Total Protein Albumin Arterial Blood Glucose Arterial Blood Ionized Calcium Urine WBC (Auto) Vancomycin Trough 34.5 H Phenytoin Crossmatch 10/21/20 10/22/20 10/23/20 13:54 07:26 05:34 WBC 18.7 H 13.0 H RBC 3.64 L 3.50 L Hgb Hct 30.0 L MCV MCH MCHC 35 H RDW 17.7 H 17.6 H Plt Count 502 H 503 H Lymph % (Auto) [place] % (Auto) Lymph # (Auto) [place] # (Auto) Baso # (Auto) Seg Neutrophils % Seg Neuts % (Manual) Lymphocytes % (Manual) Monocytes % (Manual) Nucleated RBC % Seg Neutrophils # Seg Neutrophils # Man Lymphocytes # (Manual) Monocytes # (Manual) PT INR APTT Fibrinogen D-Dimer ABG pH POC ABG pCO2 POC ABG pO2 ABG pO2 ABG HCO3 ABG Base Excess ABG Hemoglobin ABG Oxyhemoglobin ABG Sodium ABG Potassium ABG Chloride ABG Glucose VBG pH Oxyhemoglobin Carboxyhemoglobin Sodium 136 L Potassium Chloride Carbon Dioxide BUN Creatinine Glucose 120 H POC Glucose Lactic Acid Calcium Ionized Calcium Magnesium AST ALT Alkaline Phosphatase Lactate Dehydrogenase NT-Pro-B Natriuret Pep Total Protein Albumin Arterial Blood Glucose Arterial Blood Ionized Calcium Urine WBC (Auto) Vancomycin Trough Phenytoin Crossmatch 10/23/20 10/26/20 10/27/20 05:34 10:30 07:53 WBC 13.6 H RBC 3.38 L Hgb 10.0 L Hct 28.8 L MCV MCH MCHC 35 H RDW 17.6 H Plt Count Lymph % (Auto) [place] % (Auto) Lymph # (Auto) [place] # (Auto) Baso # (Auto) Seg Neutrophils % Seg Neuts % (Manual) Lymphocytes % (Manual) Monocytes % (Manual) Nucleated RBC % Seg Neutrophils # Seg Neutrophils # Man Lymphocytes # (Manual) Monocytes # (Manual) PT INR APTT Fibrinogen D-Dimer ABG pH 7.459 H POC ABG pCO2 POC ABG pO2 ABG pO2 112.2 H ABG HCO3 ABG Base Excess ABG Hemoglobin ABG Oxyhemoglobin ABG Sodium ABG Potassium ABG Chloride ABG Glucose VBG pH Oxyhemoglobin Carboxyhemoglobin Sodium 135 L Potassium Chloride Carbon Dioxide BUN Creatinine Glucose 105 H POC Glucose Lactic Acid Calcium Ionized Calcium Magnesium AST ALT Alkaline Phosphatase Lactate Dehydrogenase NT-Pro-B Natriuret Pep Total Protein Albumin Arterial Blood Glucose Arterial Blood Ionized Calcium Urine WBC (Auto) Vancomycin Trough Phenytoin Crossmatch 10/27/20 10/27/20 10/28/20 07:53 11:31 05:19 WBC RBC Hgb Hct MCV MCH MCHC RDW Plt Count Lymph % (Auto) [place] % (Auto) Lymph # (Auto) [place] # (Auto) Baso # (Auto) Seg Neutrophils % Seg Neuts % (Manual) Lymphocytes % (Manual) Monocytes % (Manual) Nucleated RBC % Seg Neutrophils # Seg Neutrophils # Man Lymphocytes # (Manual) Monocytes # (Manual) PT INR APTT Fibrinogen D-Dimer ABG pH POC ABG pCO2 POC ABG pO2 ABG pO2 ABG HCO3 ABG Base Excess ABG Hemoglobin ABG Oxyhemoglobin ABG Sodium ABG Potassium ABG Chloride ABG Glucose VBG pH Oxyhemoglobin Carboxyhemoglobin Sodium Potassium Chloride Carbon Dioxide BUN 20 H Creatinine Glucose 112 H POC Glucose 113 H 112 H Lactic Acid Calcium Ionized Calcium Magnesium AST 83 H ALT Alkaline Phosphatase Lactate Dehydrogenase NT-Pro-B Natriuret Pep Total Protein Albumin 3.8 L Arterial Blood Glucose Arterial Blood Ionized Calcium Urine WBC (Auto) Vancomycin Trough Phenytoin Crossmatch
--- NOTE | 2020-10-28 15:01 | Progress Note ---
Assessment and Plan Cultures: 10/05/2020 Blood culture: no growth 10/11/2020 blood culture: No growth 10/11/2020 tracheal aspirate: Usual respiratory jaylan 10/14/2020 blood culture: Enterobacter, coag negative staph. Sensitivities in "scanned reports" 10/15/2020 blood culture: negative A/P: 30-year-old female with GERD, hypertension, seizure disorder was admitted to the hospital at 36 weeks with seizures. She became hypoxic and pulseless requiring CPR. Following emergent section, patient developed hemorrhage, DIC. She has been admitted to ICU, remains on the vent: #Fever, sepsis is likely secondary to bacteremia: ?PICC, no acute intra- abdominal source noted on CT. New PICC was placed after the most recent (negative) cultures were obtained. Repeat CT abdomen pelvis on 10/23/2020 showed surgical changes, no abscess identified. #Status post arrest 10/07/2020: Apparently had a brief code due to ?ET tube clot/plugging. #Initial shock, DIC/persistent fever: Secondary to hemorrhage, ?possible sepsis. Possible pneumonia versus fluid overload. ?Central fever v/s from VTE. Noted diarrhea ? Cdiff + #Acute kidney injury: resolved #Acute respiratory failure: remains on the vent. now has trach #Transaminitis: ?HELLP. Improving. #Preeclampsia # hemorrhage: Status post , status post supracervical hysterectomy. #Encephalopathy post cardiac arrest #C. difficile: Completed PO vancomycin Recs: -Afebrile off antibiotics Infectious disease will sign off at this time. Please call with questions. Julee Oneill MD [facility] ([facility]) O: [phone] F: [phone] Subjective Date of service: 10/28/20 Principal diagnosis: Eclampsia/HELLP Syndrome, ADOLPH, DIC; s/p , s/p supracervical hyst Interval history: Afebrile, no other acute changes. Remains ventilated. Objective - Exam Narrative Exam: Constitutional: awake, intubated, on the vent Head, Ears, Nose: Normocephalic, atraumatic. Eyes: Conjunctivae/corneas clear. No icterus.. Neck: trach Oral: MMM Cardiovascular: S1, S2 + Respiratory: AE fair bilaterally and equal GI: Soft, bowel sounds +. lower abdominal incision present, healing well Musculoskeletal: edematous extremities, no cyanosis. Skin: No rash or abscess Hem/Lymphatic: No palpable cervical or supraclavicular nodes. Psych: no agitation Neurological: awake, doesn't follow commands, but opens eyes,trached on the vent, exam limited - Constitutional Vitals: Vital Signs Temp Pulse Resp BP Pulse Ox 99.2 F 85 33 H 122/83 100 10/28/20 08:00 10/28/20 14:36 10/28/20 13:00 10/28/20 14:36 10/28/20 13:00 Temperature -Last 24 Hours Temperature 99.2 F Temperature 99.0 F Temperature 98.2 F Temperature 98.8 F Temperature 99.0 F - Labs CBC & Chem 7: 10/27/20 07:53 10/27/20 07:53 Labs: Abnormal lab results 10/28/20 Range/Units 05:19 POC Glucose 112 H (70-105) mg/dL
--- NOTE | 2020-10-28 16:09 | Progress Note ---
Assessment and Plan - Patient Problems (1) Acute respiratory failure with hypoxia Current Visit: Yes Status: Acute Plan to address problem: Remains clinically stable and intubated Continue supportive care (2) Cardiac arrest Current Visit: Yes Status: Acute (3) Encephalopathy Current Visit: Yes Status: Acute Subjective - Subjective Principal diagnosis: Eclampsia/HELLP Syndrome, ADOLPH, DIC; s/p , s/p supracervical hyst Interval history: 30y/o POD #26 s/p supracervical hysterectomy for eclampsia and DIC. Patient remains unresponsive. No significant changes in status. She remains afebrile. The patient has been unable to be weaned from the ventilator. Spontaneous movement in left lower extremity. No meaningful response to commands appreciated. Patient reports: other Objective - Vital Signs Latest vital signs: Vital Signs Temp Pulse Pulse Resp BP Pulse Ox Pulse Ox 10/28/20 15:04 99 10/28/20 14:36 85 122/83 10/28/20 14:29 91 H 122/83 10/28/20 13:00 102 H 33 H 129/83 100 10/28/20 12:37 98 H 22 129/83 100 10/28/20 12:00 110 H 22 129/83 98 10/28/20 11:00 102 H 22 134/86 98 10/28/20 10:01 108 H 129/85 10/28/20 10:00 111 H 29 H 128/75 99 10/28/20 09:00 104 H 17 128/75 98 10/28/20 08:21 99 10/28/20 08:18 105 H 24 124/74 99 10/28/20 08:00 99.2 F 84 17 124/74 98 10/28/20 07:00 107 H 19 132/74 98 10/28/20 06:00 88 18 126/76 97 10/28/20 05:43 89 17 125/79 100 10/28/20 05:34 86 125/79 10/28/20 05:00 86 17 116/86 100 10/28/20 04:00 99.0 F 97 H 92 H 14 116/86 99 10/28/20 03:00 91 H 19 133/76 98 10/28/20 02:00 119 H 17 129/86 98 10/28/20 01:00 111 H 28 H 129/68 99 10/28/20 00:06 103 H 23 123/87 99 10/28/20 00:00 103 H 103 H 14 123/87 99 10/27/20 23:57 98.2 F 10/27/20 23:00 102 H 19 123/87 97 10/27/20 22:01 103 H 16 133/84 100 10/27/20 22:00 113 H 20 133/84 98 10/27/20 21:50 104 H 103/53 10/27/20 21:00 83 17 103/53 97 10/27/20 20:45 88 17 122/69 99 10/27/20 20:00 98.8 F 104 H 101 H 25 H 122/69 98 10/27/20 19:39 110 H 127/78 10/27/20 19:00 128 H 24 108/64 99 10/27/20 18:00 93 H 16 108/64 96 10/27/20 17:28 93 H 19 112/67 99 10/27/20 17:01 100 H 30 H 112/67 99 10/27/20 16:09 93 H 22 108/60 100 Intake and Output 10/28/20 10/28/20 10/28/20 06:59 14:59 22:59 Intake Total 1875 375 Output Total 950 Balance 925 375 Intake: IV 1000 D10w 1,000 ml @ 50 mls/hr 1000 IV DIRECT [facility] Rx#: [id number] Intake, Free Water 200 Tube Feeding 675 375 Output: Urine 950 Indwelling Catheter 950 Other: Total, Intake Amount 75 75 Total, Output Amount 950 Voiding Method Indwelling Catheter Indwelling Catheter Weight 109.8 kg 109.8 kg Patient Weight 10/29/20 06:59 Weight 109.8 kg - Exam Abdomen: Present: other (incision clean/dry/intact) - Labs Labs: Abnormal lab results 10/28/20 Range/Units 05:19 POC Glucose 112 H (70-105) mg/dL
--- NOTE | 2020-10-28 17:54 | Progress Note ---
Assessment and Plan Assessment and plan: 30 year old -Kitt[place] female CHE 10/25/20 at 36w5d who presents with seizures in triage on 10/02/20. Pt was not able to provide history but per pt's , she presented to the hospital to return a 24 hour urine specimen for analysis. She then suddenly reported that she did not feel good. She was taken to labor and delivery and shortly after arrival, she began seizing. During this time, a code met was called because the patient became hypoxic. She was then noted to be without a pulse. Chest compressions were started immediately, and the patient was emergently taken to the operating room for delivery of the fetus. Off note, This patient has had care at [facility] with comanagement by [facility] since 11 wks complicated by ADHD, morbid obesity, generalized anxiety disorder, panic attacks, chronic narcotic use, fibromyalgia, GERD, Irritable Bowel Syndrome, Migraines, h/o endometrial ablation and ovarian vein embolization, genital herpes, insomnia, LGA fetus, nausea and vomiting, polyhydramnios, quad screen positive for Down's Syndrome, and previous x 3. She is GBS negative. , Patient tracheostomy on ventilatory support, unable to wean, continue supportive care poor prognosis --Acute hypoxic respiratory failure: Tracheostomy on ventilatory support Nebulizers, oxygen titrate O2 sats to more than 90% Wean off ventilator as tolerated Pulmonary critical following --Sepsis; received antibiotics Continue to monitor off antibiotics ID following --Cardiac arrest; 10/07/2020 ,status post CPR --Acute metabolic encephalopathy --Acute hypoxic brain injury; Supportive care, closely monitor --Acute kidney injury; vasomotor nephropathy Resolved, renal function within normal limits, closely monitor --Shock; septic versus cardiogenic Requiring vasopressors, stable --DIC; sepsis, septic shock, resolved --History of preeclampsia; / hemorrhage Status post hysterectomy --History of C. difficile colitis; completed oral vancomycin --DVT/SVT and right upper extremity Very poor prognosis, Consults recommendations noted and appreciated We will closely monitor the patient and adjust management as needed Plan of care reviewed with the patient's nurse. 11:30: Pt brought to L&D triage for evaluation of possible labor. Pt accompanied by her spouse. Pt spouse poor historian; unable to obtain history- allergies at this time. Pt taken from registration to triage area via WC. Pt unresponsive, actively seizing with snorous respirations. cleaning team member, Kassy, called and requesting assistance. 11:35: Multiple staff at bedside. Pt 02 sat 67% on nonrebreather, unable to read BP at this time. Yifan Theodore CRNA, at bedside for intubation and assistance with IV insertion. INT attempt by multiple RNs unsuccessful at this time. 11:42: Pt being bagged by KORIN, 02% 79%. No pulse palpated, compressions started at this time; bharati young called and Dr. Newberry preparing OR for emergent c/s. 11:44: Continued compressions on stretcher while transporting pt to OR 1. Pt being bagged with jaw thrust manuever in place by KORIN Stringer student. 11:45: Arrival to OR 1. Dr. Newberry and Dr. Portillo present for emergent c/s. Code team arrived for continued care. patient revived and c/s done Patient has been bleeding from C/s site followed by supracervical hysterectomy for severe bleeding Patient transfused multiple units of PRBC, Patient in DIC. Transferred to the ICU 10/03. Patient seen and examined at bedside this morning. Patient is nonresponsive and mechanically ventilated. On pressors. Labs reviewed-has leukocytosis, anemia, thrombocytopenia, ADOLPH and lactic acidosis. Started on IV antibiotics to cover possible sepsis secondary to DIC. Hematology oncology recommendations appreciated-needs additional cryoprecipitate and FFP. Monitor D-dimer, fibrinogen and frequent labs. Nephrology consulted for lactic acidosis and ADOLPH. 10/04. Remains mechanically ventilated. [place] antibiotics. Labs shows improved acidosis - lactic acid 3.5. Hb drop noted. Getting transfused 2 units PRBCs. Platelet count is ~40k. Continue to monitor labs closely. Critical care team on board. 10/05; xray reviewed, concerning for multifocal infilrate, likely underlying Pneumonia, will add ID consult to assist with management of this critically ill patient, start tube feed, closely monitor renal system 10/06: Resumed care, remains on mechanical ventilation. No active bleeding, H&H stable. Continue to monitor CBC and BMP. Continue IV antibiotic for underlying pneumonia. Follow critical care and ID recommendation. 10/07: Remains on mechanical ventilation. No active bleeding, H&H stable. Critical care following, wean off ventilation as tolerated. 10/08: Patient had another cardiac arrest last night. Remains on mechanical maxine tilation, update family. Continue supportive care -poor prognosis 10/09: Called patient mother and discussed about patient care and management. Answered all question to best of my knowledge and family satisfaction. Patient remains on mechanical ventilation, cardiac arrest x2 so far. Critically sick, poor prognosis 10/10: remains on mechanical ventilation. h/h stable, no active bleeding. alfredo tor CBC/BMP 10/11: WBC trended up with diarrhea, started on vancomycin po. remains on MV, off pressor, tolerating TF 10/12: remains on MV, off pressor, tolerating TF. called family for update but unable to reach, could not leave message as it was full. cont supportive care, wean off vent as tolerated. 10/13/2020; patient is on mechanical ventilation, tolerating tube feeding. Patient has labored breathing. Neuro was consulted and recommend MRI. Patient is on Precedex. Rectal tube in place. 10/14/2020; patient is on mechanical ventilation, Precedex. Patient had fever and blood culture ordered. Patient is on IV vancomycin per ID recommendation. Neuro consulted and recommend MRI. Continue to monitor. Prognosis is guarded. 10/15/2020; patient is on mechanical ventilation, Precedex. Patient had fever and blood culture ordered. Patient is on IV vancomycin per ID recommendation. Neuro consulted and recommend MRI. Continue to monitor. Prognosis is guarded. 12: Remains with C.DIFF and Bactermia, Poor prognosis. No purposeful movement. MRI and EEG discussed with Intensvisit, Continue aggressive BP control. 3: Blood pressure better controlled MRI done 10/15 shows mild improvement in edema. We will continue to monitor mother was at bedside yesterday. Nursing documentation trach and PEG discussed with the mother including goals of care. She is still in denial about the gravity of her daughters her condition which is understandable considering her age. Continue aggressive management at this time. Await for bacteremia to clear by ID before placing PICC line. 10/19: Patient for possible PEG and Trach, ID following, repeat cultures remain negative. Poor prognosis 10/20: Pt noted to DVT and SVT in the RUE, Vascular consult and will also obtain Hematology for possible considering changing in Anticoagulation. CONTINUE TO MONITOR H/H and PLT. Family updated by [employer]. Heparin gtt started. Will check CBC and BMP 10/21: Continue supporive care, Diarrhea now resolving, But still with persistent Fever, May need repeat CT/AP per ID, still with profused Encephalopathy 10/22: Continue supportive care, weaning, awaiting repeat Imaging. FOLLOW Fever curve. Enoxparin restarted 10/23: Continue supportive care, wean as tolerated. 10/24; Started on CPAP trial, discussed with pulmonary, still with diarrhea. 10/25: Patients seen and examined, no clinical changes, still with diarrhea. ?meaningful recovery. 10/26: Clinically unchanged, continue CPAP trial, Will discuss with Neurology about re-evaluation, ?Need for repeat CT head. ?PRESS considering initial elevated BP, now stable. 10/27; tracheostomy on vent, weaning trials, vital signs noted, poor prognosis 10/28; unable to wean, tracheostomy on vent. Sepsis. Continue current ma nagement. Consults and recommendations noted and appreciated The high probability of a clinically significant, sudden or life threatening deterioration of the [MULTIPLE ORGAN] system(s) required my full and direct attention, intervention and personal management. The aggregate critical care time was [35] minutes. This time is in addition to time spent performing reported procedures but includes the following: [X] Data Review and interpretation [X] Patient assessment and monitoring of vital signs [X] Documentation [X] Medication orders and management History Interval history: I have seen and examined the patient at the bedside Patient's chart and medications reviewed Patient tracheostomy on ventilatory support Severe sepsis Vital signs noted Hospitalist Physical - Constitutional Vitals: Temp Pulse Resp BP Pulse Ox 99.2 F 96 H 19 151/74 99 10/28/20 08:00 10/28/20 17:00 10/28/20 17:00 10/28/20 17:10/28/20 17:00 General appearance: Present: mild distress, well-nourished, obese, other (Tracheostomy on vent) - EENT Eyes: Present: PERRL, EOM intact ENT: other (Tracheostomy in place) - Neck Neck: Present: supple, normal ROM - Respiratory Respiratory effort: normal Respiratory: bilateral: diminished, negative: rales, rhonchi, wheezing - Cardiovascular Rhythm: regular Heart Sounds: Present: S1 & S2 - Extremities Extremities: no ischemia, No edema - Abdominal General gastrointestinal: soft, non-tender, non-distended, normal bowel sounds - Integumentary Integumentary: Present: clear, warm - Psychiatric Psychiatric: other (On ventilatory support) - Neurologic Neurologic: other (Noncommunicative on ventilatory support tracheostomy) HEART Score - HEART Score Age: < 45 Risk factors: 1-2 risk factors - Critical Actions Critical Actions: >7 pts:50-65% risk of adverse cardiac event. Early invasive measures Results - Labs CBC & Chem 7: 10/27/20 07:53 10/27/20 07:53 Labs: Laboratory Last Values WBC 13.6 K/mm3 (4.5-11.0) H 10/27/20 07:53 RBC 3.38 M/mm3 (3.65-5.03) L 10/27/20 07:53 Hgb 10.0 gm/dl (10.1-14.3) L 10/27/20 07:53 Hgb Comment See scanned result 10/04/20 Unknown Hct 28.8 % (30.3-42.9) L 10/27/20 07:53 MCV 85 fl (79-97) 10/27/20 07:53 MCH 30 pg (28-32) 10/27/20 07:53 MCHC 35 % (30-34) H 10/27/20 07:53 RDW 17.6 % (13.2-15.2) H 10/27/20 07:53 Plt Count 340 K/mm3 (140-440) 10/27/20 07:53 Lymph % (Auto) 11.2 % (13.4-35.0) L 10/20/20 16:52 [place] % (Auto) 8.1 % (0.0-7.3) H 10/20/20 16:52 Eos % (Auto) 0.8 % (0.0-4.3) 10/20/20 16:52 Baso % (Auto) 1.1 % (0.0-1.8) 10/20/20 16:52 Lymph # (Auto) 2.1 K/mm3 (1.2-5.4) 10/20/20 16:52 [place]wey # (Auto) 1.5 K/mm3 (0.0-0.8) H 10/20/20 16:52 Eos # (Auto) 0.2 K/mm3 (0.0-0.4) 10/20/20 16:52 Baso # (Auto) 0.2 K/mm3 (0.0-0.1) H 10/20/20 16:52 Add Manual Diff Complete 10/15/20 05:50 Total Counted 100 10/15/20 05:50 Seg Neutrophils % 78.8 % (40.0-70.0) H 10/20/20 16:52 Seg Neuts % (Manual) 90.0 % (40.0-70.0) H 10/15/20 05:50 Band Neutrophils % 2.0 % 10/15/20 05:50 Lymphocytes % (Manual) 4.0 % (13.4-35.0) L 10/15/20 05:50 Reactive Lymphs % (Man) 1.0 % 10/02/20 12:18 Monocytes % (Manual) 4.0 % (0.0-7.3) 10/15/20 05:50 Eosinophils % (Manual) 1.0 % (0.0-4.3) 10/14/20 04:00 Myelocytes % 2.0 % 10/02/20 13:05 Metamyelocytes % 1.0 % 10/14/20 04:00 Nucleated RBC % Not Reportable 10/15/20 05:50 Seg Neutrophils # 14.8 K/mm3 (1.8-7.7) H 10/20/20 16:52 Seg Neutrophils # Man 20.9 K/mm3 (1.8-7.7) H 10/15/20 05:50 Band Neutrophils # 0.5 K/mm3 10/15/20 05:50 Lymphocytes # (Manual) 0.9 K/mm3 (1.2-5.4) L 10/15/20 05:50 Abs React Lymphs (Man) 0.0 K/mm3 10/15/20 05:50 Monocytes # (Manual) 0.9 K/mm3 (0.0-0.8) H 10/15/20 05:50 Eosinophils # (Manual) 0.0 K/mm3 (0.0-0.4) 10/15/20 05:50 Basophils # (Manual) 0.0 K/mm3 (0.0-0.1) 10/15/20 05:50 Metamyelocytes # 0.0 K/mm3 10/15/20 05:50 Myelocytes # 0.0 K/mm3 10/15/20 05:50 Promyelocytes # 0.0 K/mm3 10/15/20 05:50 Blast Cells # 0.0 K/mm3 10/15/20 05:50 WBC Morphology Not Reportable 10/15/20 05:50 Hypersegmented Neuts Not Reportable 10/15/20 05:50 Hyposegmented Neuts Not Reportable 10/15/20 05:50 Hypogranular Neuts Not Reportable 10/15/20 05:50 Smudge Cells Not Reportable 10/15/20 05:50 Toxic Granulation Not Reportable 10/15/20 05:50 Toxic Vacuolation Not Reportable 10/15/20 05:50 Dohle Bodies Not Reportable 10/15/20 05:50 Pelger-Huet Anomaly Not Reportable 10/15/20 05:50 Ester Rods Not Reportable 10/15/20 05:50 Platelet Estimate Consistent w auto 10/15/20 05:50 Clumped Platelets Not Reportable 10/15/20 05:50 Plt Clumps, EDTA Not Reportable 10/15/20 05:50 Large Platelets Not Reportable 10/15/20 05:50 Giant Platelets Not Reportable 10/15/20 05:50 Platelet Satelliting Not Reportable 10/15/20 05:50 Plt Morphology Comment Not Reportable 10/15/20 05:50 RBC Morphology Not Reportable 10/15/20 05:50 Dimorphic RBCs Not Reportable 10/15/20 05:50 Polychromasia Not Reportable 10/15/20 05:50 Hypochromasia Few 10/15/20 05:50 Poikilocytosis Not Reportable 10/15/20 05:50 Anisocytosis 1+ 10/15/20 05:50 Microcytosis Not Reportable 10/15/20 05:50 Macrocytosis Not Reportable 10/15/20 05:50 Spherocytes Not Reportable 10/15/20 05:50 Pappenheimer Bodies Not Reportable 10/15/20 05:50 Sickle Cells Not Reportable 10/15/20 05:50 Target Cells Not Reportable 10/15/20 05:50 Tear Drop Cells Not Reportable 10/15/20 05:50 Ovalocytes Not Reportable 10/15/20 05:50 Stomatocytes Few 10/14/20 04:00 Helmet Cells Not Reportable 10/15/20 05:50 Burk-[place] Bodies Not Reportable 10/15/20 05:50 [place] Rings Not Reportable 10/15/20 05:50 Antoine Cells Not Reportable 10/15/20 05:50 Bite Cells Not Reportable 10/15/20 05:50 Crenated Cell Not Reportable 10/15/20 05:50 Elliptocytes Not Reportable 10/15/20 05:50 Acanthocytes (Spur) Not Reportable 10/15/20 05:50 Rouleaux Not Reportable 10/15/20 05:50 Hemoglobin C Crystals Not Reportable 10/15/20 05:50 Schistocytes Not Reportable 10/15/20 05:50 Malaria parasites Not Reportable 10/15/20 05:50 Sickle Cell Solubility See scanned result 10/04/20 Unknown Hemoglobin A See scanned result 10/04/20 Unknown Hemoglobin A2 See scanned result 10/04/20 Unknown Hemoglobin A2 Prime See scanned result 10/04/20 Unknown Hemoglobin C See scanned result 10/04/20 Unknown Hemoglobin D See scanned result 10/04/20 Unknown Hemoglobin E See scanned result 10/04/20 Unknown Hgb F Diffential Stain See scanned result 10/04/20 Unknown Hemoglobin F Quant See scanned result 10/04/20 Unknown Hemoglobin G See scanned result 10/04/20 Unknown Hemoglobin S See scanned result 10/04/20 Unknown Hemoglobin [place] See scanned result 10/04/20 Unknown Hemoglobin [place] See scanned result 10/04/20 Unknown Hemoglobin Analilia See scanned result 10/04/20 Unknown Variant Hemoglobin See scanned result 10/04/20 Unknown Abnorm Hgb IEF Confirm See scanned result 10/04/20 Unknown Hemoglobin Interpret See scanned result 10/04/20 Unknown Hemoglobinopathy Note See scanned result 10/04/20 Unknown Sharad Bodies Not Reportable 10/15/20 05:50 Hem Pathologist Commnt No 10/15/20 05:50 PT 13.6 Sec. (12.2-14.9) 10/21/20 13:54 INR 1.06 (0.87-1.13) 10/21/20 13:54 APTT 31.6 Sec. (24.2-36.6) 10/03/20 00:40 Fibrinogen 336 mg/dl (211-480) 10/04/20 10:00 D-Dimer > 18004 ng/mlDDU (0-234) H 10/04/20 10:00 ABG pH 7.459 pH Units (7.350-7.450) H 10/26/20 10:30 POC ABG pCO2 20.7 mmHg (32.0-48.0) L 10/13/20 07:18 ABG pCO2 32.4 mm Hg 10/26/20 10:30 POC ABG pO2 137.9 mmHg (83-108) H 10/13/20 07:18 ABG pO2 112.2 mm Hg (80.0-90.0) H 10/26/20 10:30 POC ABG HCO3 14.8 10/13/20 07:18 ABG HCO3 22.5 mmol/L (20.0-26.0) 10/26/20 10:30 ABG O2 Saturation 98.2 % (95.0-99.0) 10/26/20 10:30 ABG O2 Content 18.5 (0.0-44) 10/26/20 10:30 POC ABG Base Excess -6.9 10/13/20 07:18 ABG Base Excess -0.6 mmol/L (-2.0-3.0) 10/26/20 10:30 ABG Hemoglobin 13.5 gm/dl (12.0-16.0) 10/26/20 10:30 ABG Oxyhemoglobin 98.3 (94-98) H 10/13/20 07:18 ABG Carboxyhemoglobin 1.3 % (0.0-5.0) 10/26/20 10:30 ABG Methemoglobin 0.5 % (0.0-1.5) 10/26/20 10:30 ABG Sodium 135.9 mmol/L (136.0-145.0) L 10/13/20 07:18 ABG Potassium 3.7 mmol/L (3.40-4.50) 10/13/20 07:18 ABG Chloride 111.0 mmol/L (98-107) H 10/13/20 07:18 ABG Glucose 109 mg/dL (65-95) H 10/13/20 07:18 VBG pH 6.949 (7.320-7.420) L* 10/02/20 Unknown Oxyhemoglobin 96.5 % (95.0-99.0) 10/26/20 10:30 Carboxyhemoglobin 0.3 (0.5-1.5) L 10/13/20 07:18 FiO2 25 % 10/26/20 10:30 Sodium 139 mmol/L (137-145) 10/27/20 07:53 Potassium 4.3 mmol/L (3.6-5.0) 10/27/20 07:53 Chloride 104.7 mmol/L (98-107) 10/27/20 07:53 Carbon Dioxide 23 mmol/L (22-30) 10/27/20 07:53 Anion Gap 16 mmol/L 10/27/20 07:53 BUN 20 mg/dL (7-17) H 10/27/20 07:53 Creatinine 0.6 mg/dL (0.6-1.2) 10/27/20 07:53 Estimated GFR > 60 ml/min 10/27/20 07:53 BUN/Creatinine Ratio 33 % 10/27/20 07:53 Glucose 112 mg/dL (65-100) H 10/27/20 07:53 POC Glucose 98 mg/dL (70-105) 10/28/20 16:51 Lactic Acid 1.90 mmol/L (0.7-2.0) 10/04/20 22:00 Uric Acid 7.5 mg/dL (3.5-7.6) 10/02/20 13:05 Calcium 9.7 mg/dL (8.4-10.2) 10/27/20 07:53 Ionized Calcium 4.4 mg/dL (4.8-5.6) L 10/07/20 21:00 Phosphorus 4.00 mg/dL (2.5-4.5) 10/20/20 07:59 Magnesium 1.80 mg/dL (1.7-2.3) 10/20/20 07:59 Total Bilirubin 0.40 mg/dL (0.1-1.2) 10/27/20 07:53 AST 83 units/L (5-40) H 10/27/20 07:53 ALT 30 units/L (7-56) 10/27/20 07:53 Alkaline Phosphatase 117 units/L (35-129) 10/27/20 07:53 Lactate Dehydrogenase 769 units/L (91-180) H 10/02/20 13:05 NT-Pro-B Natriuret Pep 2788 pg/mL (0-450) H 10/04/20 10:00 Total Protein 7.2 g/dL (6.3-8.2) 10/27/20 07:53 Albumin 3.8 g/dL (3.9-5) L 10/27/20 07:53 Albumin/Globulin Ratio 1.1 % 10/27/20 07:53 Procalcitonin 0.06 ng/mL (<0.15) 10/27/20 07:53 Arterial Blood Glucose 109 mg/dL (65-95) H 10/13/20 07:18 Arterial Blood Ionized Calcium 4.6 mg/dL (4.6-5.3) 10/13/20 07:18 Urine Color Yellow (Yellow) 10/11/20 13:26 Urine Turbidity Clear (Clear) 10/11/20 13:26 Urine pH 7.0 (5.0-7.0) 10/11/20 13:26 Ur Specific [place] 1.014 (1.003-1.030) 10/11/20 13:26 Urine Protein 100 mg/dl mg/dL (Negative) 10/11/20 13:26 Urine Glucose (UA) Neg mg/dL (Negative) 10/11/20 13:26 Urine Ketones Neg mg/dL (Negative) 10/11/20 13:26 Urine Blood Mod (Negative) 10/11/20 13:26 Urine Nitrite Neg (Negative) 10/11/20 13:26 Urine Bilirubin Neg (Negative) 10/11/20 13:26 Urine Urobilinogen < 2.0 mg/dL (<2.0) 10/11/20 13:26 Ur Leukocyte Esterase Sm (Negative) 10/11/20 13:26 Urine WBC (Auto) 24.0 /HPF (0.0-6.0) H 10/11/20 13:26 Urine RBC (Auto) 59.0 /HPF (0.0-6.0) 10/11/20 13:26 Urine Bacteria (Auto) 1+ /HPF (Negative) 10/11/20 13:26 Urine Mucus Few /HPF 10/11/20 13:26 Vancomycin Trough 12.6 ug/mL (5.0-20.0) 10/21/20 13:54 Random Vancomycin 10.7 ug/mL (0-40.0) 10/16/20 13:09 Phenytoin 5.7 ug/mL (10.0-20.0) L 10/13/20 07:00 C. difficile Tox (PCR) Positive (Negative) 10/16/20 10:22 Coronavirus (PCR) Negative (Negative) 10/08/20 14:15 Blood Type O POSITIVE 10/02/20 12:50 Antibody Screen Negative 10/02/20 12:50 Crossmatch See Detail 10/02/20 12:50 - Diagnostic Impressions Diagnostic Impressions: Echocardiogram 10/03/20 13:42 Transthoracic Echocardiogram Indication: S/P Cardiac Arrest R/O Cardiomyopathy BP: 133/71 Conclusions *Global left ventricular systolic function is normal. *The estimated ejection fraction is 60-65%. *There is trace of mitral regurgitation. *The right 0heart chambers are both slightly dilated. *There is mild tricuspid regurgitation. *There is mild-moderate pulmonary hypertension. *The right ventricular systolic pressure is calculated at 44 mmHg. *The study quality is technically difficult. Findings Procedure Info: The study quality is technically difficult. The study is technically limited due to patient body habitus. The study was technically limited due to the patient's inability to lay in the left lateral decubitus position. Left Ventricle: The left ventricular chamber size is normal. There is no left ventricular hypertrophy. Global left ventricular systolic function is normal. The estimated ejection fraction is 60-65%. Left Atrium: The left atrial chamber size is normal. Right Ventricle: The right ventricle is slightly dilated. Right Atrium: The right atrium is mildly dilated. Aortic Valve: The aortic valve leaflets are mildly thickened. There is no evidence of aortic regurgitation. There is no evidence of aortic stenosis. Mitral Valve: The mitral valve leaflets are mildly thickened. There is trace of mitral regurgitation. There is no evidence of mitral stenosis. Tricuspid Valve: There is mild tricuspid regurgitation. The right ventricular systolic pressure is calculated at 44 mmHg. There is evidence of mild pulmonary hypertension. Pulmonic Valve: There is trace pulmonic regurgitation. Pericardium: There is no pericardial effusion. Aorta: There is no dilatation of the ascending aorta. There is no dilatation of the aortic root. Venous: The inferior vena cava is dilated. Measurements Chambers 2D Name Value Normal Range IVSd (2D) 1 cm (0.6 - 1.1) LVPWd (2D) 1.01 cm (0.6 - 1.1) LVIDd (2D) 4.58 cm (3.7 - 5.6) LVIDs (2D) 3.17 cm (2 - 3.8) LV FS (2D) 30.93 % - EF Teichholz (2D) 58.66 % - Ao root diameter (2D) 2.94 cm (2 - 3.7) Volumes/Mass Name Value Normal Range LA ESV SP 4CH (A/L) 72.82 ml - LA ESV SP 2CH (A/L) 66.86 ml - LA ESV BP (A/L) 74.49 ml - LA ESV SP 4CH (MOD) 71.03 ml - LA ESV SP 2CH (MOD) 64.3 ml - LV EDV SP 4CH (MOD) 98.82 ml - LV ESV SP 4CH (MOD) 24.8 ml - EF SP 4CH (MOD) 74.9 % - LV EDV SP 2CH (MOD) 86.1 ml - LV ESV SP 2CH (MOD) 36.93 ml - EF SP 2CH (MOD) 57.11 % - LV EDV BP 94.4 ml - LV ESV BP 32.66 ml - BP EF (MOD) 65.4 % - Diastolic/Systolic Function Name Value Normal Range MV E-wave Vmax 1.04 m/sec - MV deceleration time 160.46 msec - MV A-wave Vmax 0.92 m/sec - MV E:A ratio 1.14 ratio - Aortic Valve Name Value Normal Range AV Vmax 2.12 m/sec - AV VTI 22.37 cm - AV peak gradient 17.95 mmHg - AV mean gradient 7.29 mmHg - LVOT diameter 2.01 cm - LVOT Vmax 1.8 m/sec - LVOT VTI 27.17 cm - LVOT peak gradient 12.91 mmHg - LVOT mean gradient 6.83 mmHg - SV LVOT 86.42 ml - ANITA (continuity Vmax) 2.7 cm2 - ANITA (continuity VTI) 3.86 cm2 - Ascending Ao 3.18 cm - Tricuspid Valve Name Value Normal Range TV E-wave Vmax 0.88 m/sec - TR Vmax 3.01 m/sec - TR peak gradient 36.27 mmHg - RAP 8 mmHg - RVSP 44 mmHg - IVC diameter 2.65 cm (1.2 - 2.3) Pulmonic Valve/Qp:Qs Name Value Normal Range PV Vmax 1.22 m/sec - PV peak gradient 5.91 mmHg - RVOT Vmax 0.87 m/sec - RVOT VTI 13.32 cm - RVOT peak gradient 3 mmHg - PV acceleration time 110.37 msec - [place]/IV: Voiding Method Indwelling Catheter IV Catheter Type [Right Foot] INT / Saline Lock IV Catheter Type [Left Forearm Peripheral IV ] IV Catheter Type [Left Wrist] INT / Saline Lock IV Catheter Type [Right Hand] INT / Saline Lock IV Catheter Type [Right INT / Saline Lock Antecubital] IV Catheter Type [Right Upper INT / Saline Lock arm] IV Catheter Type [Left Triple Lumen Cath Internal Jugular] IV Catheter Type [Left Hand] Peripheral IV IV Catheter Type [Left Peripheral IV Antecubital] Active Medications - Current Medications Current Medications: Generic Name Dose Route Start Last Admin Trade Name Freq PRN Reason Stop Dose Admin Acetaminophen 650 mg 10/05/20 16:34 10/16/20 00:13 Acetaminophen 325 Mg/10.15 Ml Oral Liqd Unit Dose FEEDTUBE 650 mg Q6H PRN Administration Non Cardiac Pain or Temp>100.5 Lipase/Protease/Amylase 1 each 10/05/20 11:09 Lipase 10,500/Protease 25,000/Amylase 43,750 (Units) Dr Barakat FEEDTUBE PRN PRN For Clogged Feeding Tube Enoxaparin Sodium 40 mg 10/22/20 10:00 10/28/20 10:02 Enoxaparin 40 Mg/0.4 Ml Inj SUB-Q 40 mg DAILY ERINN Administration Protocol Famotidine 20 mg 10/07/20 10:00 10/28/20 10:03 Famotidine 20 Mg Tab PO 20 mg BID ERINN Administration Furosemide 40 mg 10/17/20 10:00 10/28/20 10:01 Furosemide 40 Mg Tab PO 40 mg QDAY ERINN Administration Glycopyrrolate 1 mg 10/20/20 10:00 10/28/20 10:01 Glycopyrrolate 1 Mg Tab PO 1 mg BID ERINN Administration Hydralazine HCl 20 mg 10/07/20 11:49 10/17/20 07:20 Hydralazine 20 Mg/1 Ml Inj IV 20 mg Q6H PRN Administration SBP >170 Hydralazine HCl 50 mg 10/17/20 09:00 10/28/20 14:36 Hydralazine 25 Mg Tab PO 50 mg Q8HR ERINN Administration Hydrophilic Ointment 1 applic 10/04/20 06:55 Lip Therapy Vaseline TP Q2HR PRN Dry Lips Dextrose 1,000 mls @ 50 mls/hr 10/13/20 11:00 10/28/20 03:00 D10w IV 75 mls/hr DIRECT ERINN Administration Labetalol HCl 300 mg 10/17/20 09:00 10/28/20 14:29 Labetalol 100 Mg Tab PO 300 mg TID ERINN Administration Multi-Ingred Cream/Lotion/Oil/Oint 1 applic 10/04/20 06:55 Mineral Oil/Petrolatum, White Ophth Oint 3.5 Gm OU Q4HR PRN Dry Eye(s) Simple Syrup 15 ml 10/05/20 11:09 Simple Syrup 15 Ml FEEDTUBE PRN PRN Hypoglycemia Simple Syrup 30 ml 10/05/20 11:09 Simple Syrup 15 Ml FEEDTUBE PRN PRN Hypoglycemia Sodium Bicarbonate 325 mg 10/05/20 11:09 Sodium Bicarbonate 325 Mg Tab FEEDTUBE PRN PRN For Clogged Feeding Tube Sodium Bicarbonate 1,300 mg 10/13/20 14:00 10/28/20 14:29 Sodium Bicarbonate 650 Mg Tab PO 1,300 mg TID ERINN Administration Topiramate 50 mg 10/05/20 11:00 10/28/20 10:02 Topiramate Tab 25 Mg Tab PO 50 mg Q12HR ERINN Administration Nutrition/Malnutrition Assess - Dietary Evaluation Nutrition/Malnutrition Findings: Nutrition Notes Start: 10/04/20 11:13 Freq: Status: Active Protocol: Document 10/28/20 13:12 CW (Rec: 10/28/20 13:17 CW [email or web address]) Co-Sign 10/28/20 13:12 LP Nutrition Notes Initial or Follow up Reassessment Current Diagnosis Acute Kidney Injury, Respiratory Failure Other Pertinent Diagnosis Cardiac arrest, s/p c-sectuion and supracervial hysterectomy Current Diet Promote at 75ml/hr Labs/Tests 10/27 lasix 10/28 D10W at 75 ml/hr Pertinent Medications BG 112 Height 5 ft 8 in Weight 109.8 kg [place] Body Weight (kg) 63.63 BMI 36.8 Weight change and time frame Wt change noted Weight Status Morbidly Obese Subjective/Other Information FU for TF tolerance. Discussed with MD about pt BG and plans to decreased D10w rate to 50ml/hr. Pt remains on the vent. Percent of energy/protein needs met: 100%/74% Burn Absent Trauma Absent GI Symptoms None Food Allergy Yes Current % PO Negligible Minimum of two criteria No Fluid Accumulation Mild (non-severe) #1 Nutrition Diagnosis Inadequate oral intake Diagnosis Progress(for reassessment Continues documentation) Is patient on ventilator? Yes Is Patient Ambulatory and/or Out of Bed No REE-([place]-confined to bed) 2229.552 Kcal/Kg value to use for calculation 16 Approximate Energy Requirements Using 1757 kcal/Kg Calculation Used for Recommendations Kcal/kg Additional Notes Protein needs are up to 159g ( up to 2.5g/kg) Fluid needs are 1ml/kcal Nutrition Intervention Change Diet Order: Continue TF Nutrition Support: Promote at 75 ml/hr. Flush 50ml q4h. Kcal 1,800 Protein (gm) 112 Fluid (mL) 1,510 Goal #1 TF tolerance Goal #2 Meet at least 75% of energy and protein needs Anticipated Discharge Needs: Unable to determine at this time Follow-Up By: 10/30/20 Additional Comments FU for TF tolerance, BG labs
[2020-10-29] MEDS: hydrALAZINE 25 MG TAB PO SCH ×3 (06:23→21:42)
--- NOTE | 2020-10-29 08:36 | Progress Note ---
Assessment and Plan A: POD#27 s/p repeat section at 36 wks secondary to Eclampsia and Cardiac Arrest with Resuscitation POD#27 s/p supracervical abdominal hysterectomy secondary to Uterine Atony, Hemorrhage and Disseminated Intravascular Coagulation (DIC) s/p multiple transfusions of blood products POD #8 s/p Percutaneous Tracheostomy, Fiberoptic Bronchoscopy, PEG tube placement Right Upper Extremity superficial and deep vein thrombosis on Lovenox -Status post cardiac arrest 10/07/2020 requiring reintubation. -Shock, DIC: Secondary to hemorrhage-stable -Sepsis: followed by ID, abx/imaging recommendations noted -Acute kidney injury: resolved, labs stable -Acute respiratory failure: remains on the vent -Preeclampsia: s/p Magnesium P: Continue current management Subjective - Subjective Date of service: 10/29/20 Principal diagnosis: Eclampsia/HELLP Syndrome, ADOLPH, DIC; s/p , s/p supracervical hyst Interval history: All strategy consultant recommendations reviewed and greatly appreciated. 30y/o POD #27 s/p emergent section and supracervical hysterectomy for eclampsia and DIC. POD#8 s/p Percutaneous tracheostomy, Fiberoptic bronchoscopy, PEG tube placement. Currently on Lovenox for SVT and DVT in right upper extremity. Afebrile overnight. Pt remains unresponsive, with spontaneous blinking of eyes and movement of right lower extremity. Patient reports: bowel movement, no voiding normally (chowdhury in place ), no ambulating normally Objective - Vital Signs Latest vital signs: Vital Signs Temp Pulse Pulse Resp BP Pulse Ox Pulse Ox 10/29/20 07:53 100 10/29/20 06:23 88 108/46 10/29/20 06:00 92 H 19 108/46 100 10/29/20 05:00 114 H 28 H 101/49 99 10/29/20 04:00 99.0 F 89 80 20 95/47 99 10/29/20 03:00 92 H 17 152/68 100 10/29/20 02:33 99 10/29/20 02:00 84 13 149/65 99 10/29/20 01:00 107 H 21 143/72 98 10/29/20 00:00 98.8 F 103 H 87 19 129/55 100 10/28/20 23:20 101 H 14 129/55 100 10/28/20 23:00 95 H 15 129/55 100 10/28/20 22:00 102 H 15 131/46 96 10/28/20 21:30 107 H 146/55 10/28/20 21:00 116 H 20 160/61 100 10/28/20 20:39 100 100 10/28/20 20:00 98.3 F 105 H 111 H 25 H 127/67 100 10/28/20 19:00 106 H 17 127/67 99 10/28/20 18:00 90 17 142/74 100 10/28/20 17:00 96 H 19 151/74 99 10/28/20 16:36 105 H 25 H 143/74 100 10/28/20 16:00 98.7 F 100 H 18 149/77 100 10/28/20 15:04 99 10/28/20 15:00 102 H 19 122/83 100 10/28/20 14:36 85 122/83 10/28/20 14:29 91 H 122/83 10/28/20 14:00 102 H 24 129/83 100 10/28/20 13:00 102 H 33 H 129/83 100 10/28/20 12:37 98 H 22 129/83 100 10/28/20 12:00 98.9 F 89 22 129/83 98 10/28/20 11:00 102 H 22 134/86 98 10/28/20 10:01 108 H 129/85 10/28/20 10:00 111 H 29 H 128/75 99 10/28/20 09:00 104 H 17 128/75 98 Intake and Output 10/28/20 10/29/20 10/29/20 22:59 06:59 14:59 Intake Total 1700 700 Output Total 1800 700 Balance -100 0 Intake: IV 1000 D10w 1,000 ml @ 50 mls/hr 1000 IV DIRECT [facility] Rx#: [id number] Intake, Free Water 100 100 Tube Feeding 600 600 Output: Urine 1800 700 Indwelling Catheter 1800 700 Other: Total, Intake Amount 75 75 Total, Output Amount 300 800 Voiding Method Indwelling Catheter Indwelling Catheter Weight 109.7 kg - Exam Breasts: Present: deferred Abdomen: Present: soft Extremities: Present: edema Incision: Present: intact
[2020-10-29] MEDS: SODIUM BICARBONATE 650 MG TAB PO SCH ×3 (08:41→20:36)
[2020-10-29 08:51] LABS: Hematocrit 32.4 % (30.3-42.9); Hemoglobin 10.9 gm/dl (10.1-14.3); Mean Corpuscular HGB Conc 34 % (30-34); Mean Corpuscular Volume 84 fl (79-97); Platelet Count 437 K/mm3 (140-440); Red Blood Count 3.88 M/mm3 (3.65-5.03)
[2020-10-29 09:57] LABS: Total Cells Counted 100
[2020-10-29 09:58] LABS: Hypochromasia Few; Large Platelets Few; Platelet Estimate Consistent w Auto; Target Cells Few
[2020-10-29] MEDS: FUROSEMIDE 40 MG TAB PO SCH (10:05)
[2020-10-29] MEDS: GLYCOPYRROLATE 1 MG TAB PO SCH ×2 (10:05→21:53)
[2020-10-29] MEDS: FAMOTIDINE 20 MG TAB PO SCH ×2 (10:05→21:52)
[2020-10-29] MEDS: ENOXAPARIN 40 MG/0.4 ML INJ SUB-Q SCH (10:05)
[2020-10-29] MEDS: TOPIRAMATE TAB 25 MG TAB PO SCH ×2 (10:05→21:53)
--- NOTE | 2020-10-29 11:07 | Progress Note ---
Assessment and Plan 30 y/o female with Eclampsia, s/p emergent section with DIC, acute respiratory failure and worsening renal function. 10/29/20: Off vent now for 24 hours. Tolerating T-Piece. Will transition to step down for a few days. If does well there, consider transition to floor. Continue PT. 10/28/20: Daily T-piece trials for as long as tolerated. Attempt to push further daily. OT does not do passive range of motion. Per PT note will do passive range of motion with patient. Guarded prognosis. Hoping to wean off vent and transition to floor. 10/27/20: Continue daily T-piece trials for as long as tolerated. Ok with resting on either PSV or full rate if needed at night but need to strengthen her respiratory muscles. PT/OT if possible. Will transition to step down prior to going to floor to insure stability. 10/26/20: Will obtain ABG today. If good, will attempt on T-piece later. Continue PT/OT. Will speak with CM about possibility of LTACH or nursing facility that can take trached patients. 10/23/20: Daily PSV trials for as long as patient will tolerate. Needs PT/OT consult for passive range of motion. 10/22/20: Will start prolonged PSV trials. Attempt to wean from vent and then transition to floor to see if mental status improves. Continue tube feeds. 10/21/20: Trach and peg placed. No sedation. Restart Lovenox for Upper Ext DVT. Restart feeds when surgery states ok to use PEG. C. Diff treatment per ID. Guarded prognosis. Will be a [facility] wean. Hopeful to wean off vent at least and then can transfer to floor. 10/20/20: NPO after midnight. DVT study just read from 10/14 on yesterday sh owing upper ext DVT. Started on Lovenox but need to hold therapy until after surgery. could be source of fevers. No sedation. 10/19/20: Stable BP. Will meet/talk with family at noon over the phone with myself and case management. Need to discuss goals of care and what next steps would be. Patient would need trach and peg and transfer to LTACH if family ok with this. Follow up speciation of GNR's in blood. Has been on Cefepime. Continues therapy for C. Diff. Guarded prognosis. Continue daily PSV trials but not ready for extubation secondary to mental state. 10/18/20: Blood pressure is much better with the addition of meds started on yesterday. Need to have family meeting jesica in regards to goals of care. Continue Daily PSV trials but not ready for extubation. Continue therapy for C. Diff per ID. 10/17/20: CT scan was of no help in regards to fevers. C. Diff is positive and BP now is more uncontrolled despite increasing labetalol. Today will increase to 300 TID. Added TID Hydralazine and added PO lasix given her mild pulmonary htn seen on echo. Spoke with mother over the phone and she requests to come see the patient. Given current circumstances, will allow her to come briefly today and then will speak with her at the bedside. No neurology is available at the time and suspect these will be the majority of her questions. Tolerated PSV briefly yesterday and will do again today but not for extended periods as given her mental state she is not a candidate for extubation. I will also ask the mother about [facility] care (trach and peg) when she comes today. Overall prognosis is guarded to poor. If oral meds cannot regulate blood pressure, may need Cardene drip. Continue therapy for C. Diff per ID. 10/16/20: Needs a different consent for CT of abdomen and pelvis. I have signed the one in the chart. The nurse who obtained the first consent did obtain consent for contrast, it just wasn't listed on the that consent. Await neurology input on EEG vs MRI findings. Patient has now been intubated 14 days. Need to have family meeting to discuss goals of care but I suspect family will want to hear from Neurology as well. Tolerating PSV trials but will only do briefly as patient is not a candidate for extubation today. Will increase labetalol to 200 TID based on MRI report. Overall prognosis is guarded to poor. Subjective Date of service: 10/29/20 Principal diagnosis: Eclampsia/HELLP Syndrome, ADOLPH, DIC; s/p , s/p supracervical hyst Interval history: No acute events. Tolerated T-piece all night and remains on now. Eyes open today but still not responsive. Moves legs sporadically. Objective Vital Signs - 12hr 10/28/20 10/29/20 10/29/20 23:20 00:00 01:00 Temperature 98.8 F Pulse Rate 101 H 103 H 107 H Pulse Rate [ 87 From Monitor] Respiratory 14 19 21 Rate Blood Pressure 129/55 129/55 143/72 O2 Sat by Pulse 100 100 98 Oximetry O2 Sat by Pulse Oximetry [ Assessment] 10/29/20 10/29/20 10/29/20 02:00 02:33 03:00 Temperature Pulse Rate 84 92 H Pulse Rate [ From Monitor] Respiratory 13 17 Rate Blood Pressure 149/65 152/68 O2 Sat by Pulse 99 100 Oximetry O2 Sat by Pulse 99 Oximetry [ Assessment] 10/29/20 10/29/20 10/29/20 04:00 05:00 06:00 Temperature 99.0 F Pulse Rate 89 114 H 92 H Pulse Rate [ 80 From Monitor] Respiratory 20 28 H 19 Rate Blood Pressure 95/47 101/49 108/46 O2 Sat by Pulse 99 99 100 Oximetry O2 Sat by Pulse Oximetry [ Assessment] 10/29/20 10/29/20 10/29/20 06:23 07:00 07:53 Temperature Pulse Rate 88 103 H Pulse Rate [ From Monitor] Respiratory 25 H Rate Blood Pressure 108/46 112/56 O2 Sat by Pulse 99 100 Oximetry O2 Sat by Pulse Oximetry [ Assessment] 10/29/20 10/29/20 10/29/20 08:00 08:41 09:00 Temperature Pulse Rate 110 H 98 H 109 H Pulse Rate [ 110 H From Monitor] Respiratory 12 14 Rate Blood Pressure 108/48 110/60 111/70 O2 Sat by Pulse 100 98 Oximetry O2 Sat by Pulse Oximetry [ Assessment] 10/29/20 10:00 Temperature Pulse Rate 97 H Pulse Rate [ From Monitor] Respiratory 16 Rate Blood Pressure 120/69 O2 Sat by Pulse 98 Oximetry O2 Sat by Pulse Oximetry [ Assessment] Constitutional: comatose, other (critically ill on ventilator trach) Eyes: non-icteric ENT: oropharynx moist, other (orally intubated and not sedated) Neck: other (large in cirumference) Effort: normal Ascultation: Bilateral: clear, diminished breath sounds, other (coarse BS bilaterally w/ mild faint wheezes) Percussion: Bilateral: not dull Cardiovascular: regular rate and rhythm, other (no mrg) Gastrointestinal: normoactive bowel sounds, soft, other (post surgical changes with drain on the left side) Extremities: no cyanosis, pink and warm, anasarca Neurologic: other (unresponsive, not following commands, not tracking) Psychiatric: other (unable to assess) CBC and BMP: 10/29/20 07:56 10/29/20 07:56 ABG, PT/INR, D-dimer: ABG ABG pH 7.459 pH Units (7.350-7.450) H 10/26/20 10:30 POC ABG pCO2 20.7 mmHg (32.0-48.0) L 10/13/20 07:18 ABG pCO2 32.4 mm Hg 10/26/20 10:30 POC ABG pO2 137.9 mmHg (83-108) H 10/13/20 07:18 ABG pO2 112.2 mm Hg (80.0-90.0) H 10/26/20 10:30 POC ABG HCO3 14.8 10/13/20 07:18 ABG O2 Saturation 98.2 % (95.0-99.0) 10/26/20 10:30 PT/INR, D-dimer PT 13.6 Sec. (12.2-14.9) 10/21/20 13:54 INR 1.06 (0.87-1.13) 10/21/20 13:54 D-Dimer > 16908 ng/mlDDU (0-234) H 10/04/20 10:00 Abnormal lab findings: Abnormal Labs 10/02/20 10/02/20 10/02/20 12:03 12:18 12:18 WBC 14.9 H RBC Hgb 9.1 L Hct MCV MCH 22 L MCHC 28 L RDW 17.6 H Plt Count 102 L Lymph % (Auto) [place] % (Auto) Lymph # (Auto) [place] # (Auto) Baso # (Auto) Seg Neutrophils % Seg Neuts % (Manual) 36.0 L Lymphocytes % (Manual) 49.0 H Monocytes % (Manual) Nucleated RBC % 6.0 H Seg Neutrophils # Seg Neutrophils # Man Lymphocytes # (Manual) 7.3 H Monocytes # (Manual) PT INR APTT Fibrinogen D-Dimer ABG pH POC ABG pCO2 POC ABG pO2 ABG pO2 ABG HCO3 ABG Base Excess ABG Hemoglobin ABG Oxyhemoglobin ABG Sodium ABG Potassium ABG Chloride ABG Glucose VBG pH Oxyhemoglobin Carboxyhemoglobin Sodium 134 L Potassium Chloride Carbon Dioxide 12 L BUN 6 L Creatinine Glucose 390 H POC Glucose 451 H Lactic Acid Calcium Ionized Calcium Phosphorus Magnesium AST 135 H ALT 85 H Alkaline Phosphatase 172 H Lactate Dehydrogenase 641 H NT-Pro-B Natriuret Pep Total Protein 5.4 L Albumin 2.3 L Arterial Blood Glucose Arterial Blood Ionized Calcium Urine WBC (Auto) Vancomycin Trough Phenytoin Crossmatch 10/02/20 10/02/20 10/02/20 12:50 13:05 13:05 WBC 38.6 H RBC Hgb 8.9 L Hct 29.0 L MCV 73 L MCH 22 L MCHC RDW 17.2 H Plt Count Lymph % (Auto) [place] % (Auto) Lymph # (Auto) [place] # (Auto) Baso # (Auto) Seg Neutrophils % Seg Neuts % (Manual) Lymphocytes % (Manual) Monocytes % (Manual) Nucleated RBC % 2.0 H Seg Neutrophils # Seg Neutrophils # Man 20.1 H Lymphocytes # (Manual) 10.4 H Monocytes # (Manual) 2.3 H PT INR APTT Fibrinogen D-Dimer ABG pH POC ABG pCO2 POC ABG pO2 ABG pO2 ABG HCO3 ABG Base Excess ABG Hemoglobin ABG Oxyhemoglobin ABG Sodium ABG Potassium ABG Chloride ABG Glucose VBG pH Oxyhemoglobin Carboxyhemoglobin Sodium Potassium Chloride Carbon Dioxide BUN Creatinine Glucose POC Glucose Lactic Acid Calcium Ionized Calcium Phosphorus Magnesium AST 184 H ALT 113 H Alkaline Phosphatase Lactate Dehydrogenase 769 H NT-Pro-B Natriuret Pep Total Protein Albumin Arterial Blood Glucose Arterial Blood Ionized Calcium Urine WBC (Auto) Vancomycin Trough Phenytoin Crossmatch See Detail 10/02/20 10/02/20 10/02/20 16:25 16:35 16:35 WBC RBC Hgb Hct MCV MCH MCHC RDW Plt Count Lymph % (Auto) [place] % (Auto) Lymph # (Auto) [place] # (Auto) Baso # (Auto) Seg Neutrophils % Seg Neuts % (Manual) Lymphocytes % (Manual) Monocytes % (Manual) Nucleated RBC % Seg Neutrophils # Seg Neutrophils # Man Lymphocytes # (Manual) Monocytes # (Manual) PT INR APTT Fibrinogen D-Dimer ABG pH 7.031 L* POC ABG pCO2 POC ABG pO2 ABG pO2 116.8 H ABG HCO3 12.7 L ABG Base Excess -16.9 L ABG Hemoglobin 7.8 L ABG Oxyhemoglobin ABG Sodium ABG Potassium ABG Chloride ABG Glucose VBG pH Oxyhemoglobin 94.9 L Carboxyhemoglobin Sodium Potassium Chloride Carbon Dioxide BUN Creatinine Glucose 403 H POC Glucose Lactic Acid 11.40 H* Calcium 6.3 L D Ionized Calcium Phosphorus Magnesium AST 70 H ALT Alkaline Phosphatase Lactate Dehydrogenase NT-Pro-B Natriuret Pep Total Protein 1.9 L D Albumin 1.2 L Arterial Blood Glucose Arterial Blood Ionized Calcium Urine WBC (Auto) Vancomycin Trough Phenytoin Crossmatch 10/02/20 10/02/20 10/02/20 18:18 18:18 22:30 WBC 11.5 H RBC 2.06 L Hgb 5.5 L* D Hct 17.3 L* D MCV MCH 27 L MCHC RDW 19.5 H Plt Count 60 L Lymph % (Auto) [place] % (Auto) Lymph # (Auto) [place] # (Auto) Baso # (Auto) Seg Neutrophils % Seg Neuts % (Manual) Lymphocytes % (Manual) 8.0 L Monocytes % (Manual) 8.0 H Nucleated RBC % 8.0 H Seg Neutrophils # Seg Neutrophils # Man Lymphocytes # (Manual) 0.9 L Monocytes # (Manual) 0.9 H PT 37.1 H INR 3.71 H APTT 135.8 H* Fibrinogen D-Dimer ABG pH 7.067 L* POC ABG pCO2 POC ABG pO2 ABG pO2 183.0 H ABG HCO3 14.1 L ABG Base Excess -15.1 L ABG Hemoglobin 7.7 L ABG Oxyhemoglobin ABG Sodium ABG Potassium ABG Chloride ABG Glucose VBG pH Oxyhemoglobin Carboxyhemoglobin Sodium Potassium Chloride Carbon Dioxide BUN Creatinine Glucose POC Glucose Lactic Acid Calcium Ionized Calcium Phosphorus Magnesium AST ALT Alkaline Phosphatase Lactate Dehydrogenase NT-Pro-B Natriuret Pep Total Protein Albumin Arterial Blood Glucose Arterial Blood Ionized Calcium Urine WBC (Auto) Vancomycin Trough Phenytoin Crossmatch 10/02/20 10/02/20 10/03/20 Unknown Unknown 00:01 WBC RBC Hgb Hct MCV MCH MCHC RDW Plt Count Lymph % (Auto) [place] % (Auto) Lymph # (Auto) [place] # (Auto) Baso # (Auto) Seg Neutrophils % Seg Neuts % (Manual) Lymphocytes % (Manual) Monocytes % (Manual) Nucleated RBC % Seg Neutrophils # Seg Neutrophils # Man Lymphocytes # (Manual) Monocytes # (Manual) PT 61.1 H INR 6.92 H* APTT 158.7 H* Fibrinogen < 60 L* D-Dimer > 91288 H ABG pH POC ABG pCO2 POC ABG pO2 ABG pO2 ABG HCO3 ABG Base Excess ABG Hemoglobin ABG Oxyhemoglobin ABG Sodium ABG Potassium ABG Chloride ABG Glucose VBG pH 6.949 L* Oxyhemoglobin Carboxyhemoglobin Sodium Potassium Chloride Carbon Dioxide BUN Creatinine Glucose POC Glucose 196 H Lactic Acid Calcium Ionized Calcium Phosphorus Magnesium AST ALT Alkaline Phosphatase Lactate Dehydrogenase NT-Pro-B Natriuret Pep Total Protein Albumin Arterial Blood Glucose Arterial Blood Ionized Calcium Urine WBC (Auto) Vancomycin Trough Phenytoin Crossmatch 10/03/20 10/03/20 10/03/20 00:40 00:40 00:40 WBC RBC Hgb Hct MCV MCH MCHC RDW Plt Count Lymph % (Auto) [place] % (Auto) Lymph # (Auto) [place] # (Auto) Baso # (Auto) Seg Neutrophils % Seg Neuts % (Manual) Lymphocytes % (Manual) Monocytes % (Manual) Nucleated RBC % Seg Neutrophils # Seg Neutrophils # Man Lymphocytes # (Manual) Monocytes # (Manual) PT 15.1 H INR 1.21 H APTT Fibrinogen D-Dimer ABG pH POC ABG pCO2 POC ABG pO2 ABG pO2 ABG HCO3 ABG Base Excess ABG Hemoglobin ABG Oxyhemoglobin ABG Sodium ABG Potassium ABG Chloride ABG Glucose VBG pH Oxyhemoglobin Carboxyhemoglobin Sodium 136 L Potassium Chloride Carbon Dioxide BUN Creatinine 1.6 H D Glucose 106 H POC Glucose Lactic Acid 5.60 H* Calcium 6.5 L Ionized Calcium Phosphorus Magnesium AST 232 H ALT 104 H Alkaline Phosphatase Lactate Dehydrogenase NT-Pro-B Natriuret Pep Total Protein 3.9 L D Albumin 2.4 L Arterial Blood Glucose Arterial Blood Ionized Calcium Urine WBC (Auto) Vancomycin Trough Phenytoin Crossmatch 10/03/20 10/03/20 10/03/20 02:08 02:08 02:08 WBC 17.6 H RBC 3.27 L Hgb 9.9 L D Hct 29.9 L D MCV MCH MCHC RDW 16.5 H Plt Count 75 L Lymph % (Auto) [place] % (Auto) Lymph # (Auto) [place] # (Auto) Baso # (Auto) Seg Neutrophils % Seg Neuts % (Manual) 76.0 H Lymphocytes % (Manual) Monocytes % (Manual) Nucleated RBC % 8.0 H Seg Neutrophils # Seg Neutrophils # Man 13.4 H Lymphocytes # (Manual) Monocytes # (Manual) PT INR APTT Fibrinogen D-Dimer ABG pH POC ABG pCO2 POC ABG pO2 ABG pO2 ABG HCO3 ABG Base Excess ABG Hemoglobin ABG Oxyhemoglobin ABG Sodium ABG Potassium ABG Chloride ABG Glucose VBG pH Oxyhemoglobin Carboxyhemoglobin Sodium Potassium Chloride Carbon Dioxide 19 L BUN Creatinine 1.4 H Glucose 306 H POC Glucose Lactic Acid 10.50 H* Calcium 6.4 L Ionized Calcium Phosphorus Magnesium AST ALT Alkaline Phosphatase Lactate Dehydrogenase NT-Pro-B Natriuret Pep Total Protein Albumin Arterial Blood Glucose Arterial Blood Ionized Calcium Urine WBC (Auto) Vancomycin Trough Phenytoin Crossmatch 10/03/20 10/03/20 10/03/20 02:42 03:59 05:31 WBC RBC Hgb Hct MCV MCH MCHC RDW Plt Count Lymph % (Auto) [place] % (Auto) Lymph # (Auto) [place] # (Auto) Baso # (Auto) Seg Neutrophils % Seg Neuts % (Manual) Lymphocytes % (Manual) Monocytes % (Manual) Nucleated RBC % Seg Neutrophils # Seg Neutrophils # Man Lymphocytes # (Manual) Monocytes # (Manual) PT INR APTT Fibrinogen D-Dimer ABG pH 7.144 L POC ABG pCO2 54.4 H POC ABG pO2 ABG pO2 ABG HCO3 ABG Base Excess ABG Hemoglobin 10.0 L ABG Oxyhemoglobin ABG Sodium ABG Potassium ABG Chloride 108.0 H ABG Glucose 306 H VBG pH Oxyhemoglobin Carboxyhemoglobin Sodium Potassium Chloride Carbon Dioxide BUN Creatinine Glucose POC Glucose 209 H Lactic Acid 9.20 H* Calcium Ionized Calcium Phosphorus Magnesium AST ALT Alkaline Phosphatase Lactate Dehydrogenase NT-Pro-B Natriuret Pep Total Protein Albumin Arterial Blood Glucose 306 H Arterial Blood Ionized Calcium 3.7 L Urine WBC (Auto) Vancomycin Trough Phenytoin Crossmatch 10/03/20 10/03/20 10/03/20 09:00 09:00 09:00 WBC 27.4 H RBC 2.84 L Hgb 8.5 L Hct 25.1 L MCV MCH MCHC RDW 16.1 H Plt Count 72 L Lymph % (Auto) [place] % (Auto) Lymph # (Auto) [place] # (Auto) Baso # (Auto) Seg Neutrophils % Seg Neuts % (Manual) Lymphocytes % (Manual) 11.0 L Monocytes % (Manual) Nucleated RBC % 3.0 H Seg Neutrophils # Seg Neutrophils # Man 18.4 H Lymphocytes # (Manual) Monocytes # (Manual) 1.9 H PT INR APTT Fibrinogen D-Dimer ABG pH POC ABG pCO2 POC ABG pO2 ABG pO2 ABG HCO3 ABG Base Excess ABG Hemoglobin ABG Oxyhemoglobin ABG Sodium ABG Potassium ABG Chloride ABG Glucose VBG pH Oxyhemoglobin Carboxyhemoglobin Sodium Potassium Chloride Carbon Dioxide BUN Creatinine 1.7 H Glucose 216 H POC Glucose Lactic Acid 9.20 H* Calcium 6.3 L Ionized Calcium Phosphorus Magnesium AST 331 H ALT 171 H Alkaline Phosphatase Lactate Dehydrogenase NT-Pro-B Natriuret Pep Total Protein 3.7 L Albumin 1.9 L Arterial Blood Glucose Arterial Blood Ionized Calcium Urine WBC (Auto) Vancomycin Trough Phenytoin Crossmatch 10/03/20 10/03/20 10/03/20 11:20 11:46 11:50 WBC 28.7 H RBC 2.67 L Hgb 8.0 L Hct 23.7 L MCV MCH MCHC RDW 16.6 H Plt Count 76 L Lymph % (Auto) [place] % (Auto) Lymph # (Auto) [place] # (Auto) Baso # (Auto) Seg Neutrophils % Seg Neuts % (Manual) Lymphocytes % (Manual) Monocytes % (Manual) Nucleated RBC % Seg Neutrophils # Seg Neutrophils # Man Lymphocytes # (Manual) Monocytes # (Manual) PT INR APTT Fibrinogen D-Dimer ABG pH POC ABG pCO2 POC ABG pO2 ABG pO2 ABG HCO3 ABG Base Excess ABG Hemoglobin ABG Oxyhemoglobin ABG Sodium ABG Potassium ABG Chloride ABG Glucose VBG pH Oxyhemoglobin Carboxyhemoglobin Sodium Potassium Chloride Carbon Dioxide BUN Creatinine Glucose POC Glucose 125 H Lactic Acid 8.00 H* Calcium Ionized Calcium Phosphorus Magnesium AST ALT Alkaline Phosphatase Lactate Dehydrogenase NT-Pro-B Natriuret Pep Total Protein Albumin Arterial Blood Glucose Arterial Blood Ionized Calcium Urine WBC (Auto) Vancomycin Trough Phenytoin Crossmatch 10/03/20 10/04/20 10/04/20 11:50 00:40 00:40 WBC RBC Hgb 6.8 L Hct 19.4 L* MCV MCH MCHC RDW Plt Count 49 L Lymph % (Auto) [place] % (Auto) Lymph # (Auto) [place] # (Auto) Baso # (Auto) Seg Neutrophils % Seg Neuts % (Manual) Lymphocytes % (Manual) Monocytes % (Manual) Nucleated RBC % Seg Neutrophils # Seg Neutrophils # Man Lymphocytes # (Manual) Monocytes # (Manual) PT INR APTT Fibrinogen D-Dimer ABG pH 7.244 L POC ABG pCO2 POC ABG pO2 ABG pO2 ABG HCO3 ABG Base Excess -4.5 L ABG Hemoglobin 7.3 L ABG Oxyhemoglobin ABG Sodium ABG Potassium ABG Chloride ABG Glucose VBG pH Oxyhemoglobin Carboxyhemoglobin Sodium Potassium Chloride Carbon Dioxide BUN Creatinine Glucose POC Glucose Lactic Acid Calcium Ionized Calcium Phosphorus Magnesium AST ALT Alkaline Phosphatase Lactate Dehydrogenase NT-Pro-B Natriuret Pep Total Protein Albumin Arterial Blood Glucose Arterial Blood Ionized Calcium Urine WBC (Auto) Vancomycin Trough Phenytoin Crossmatch 10/04/20 10/04/20 10/04/20 03:53 10:00 10:00 WBC 14.6 H RBC 2.57 L Hgb 7.6 L Hct 22.5 L MCV MCH MCHC RDW 15.8 H Plt Count 38 L Lymph % (Auto) 7.7 L [place] % (Auto) Lymph # (Auto) 1.1 L [place] # (Auto) 0.9 H Baso # (Auto) Seg Neutrophils % 85.6 H Seg Neuts % (Manual) Lymphocytes % (Manual) Monocytes % (Manual) Nucleated RBC % Seg Neutrophils # 12.5 H Seg Neutrophils # Man Lymphocytes # (Manual) Monocytes # (Manual) PT INR APTT Fibrinogen D-Dimer ABG pH POC ABG pCO2 POC ABG pO2 110.6 H ABG pO2 ABG HCO3 ABG Base Excess ABG Hemoglobin 6.7 L ABG Oxyhemoglobin ABG Sodium 132.0 L ABG Potassium ABG Chloride ABG Glucose 111 H VBG pH Oxyhemoglobin Carboxyhemoglobin Sodium 134 L D Potassium Chloride 97.6 L Carbon Dioxide BUN Creatinine 1.7 H Glucose POC Glucose Lactic Acid Calcium 6.3 L Ionized Calcium Phosphorus Magnesium AST 203 H ALT 81 H Alkaline Phosphatase Lactate Dehydrogenase NT-Pro-B Natriuret Pep Total Protein 3.9 L Albumin 2.3 L Arterial Blood Glucose 111 H Arterial Blood Ionized Calcium 3.5 L Urine WBC (Auto) Vancomycin Trough Phenytoin Crossmatch 10/04/20 10/04/20 10/04/20 10:00 10:00 10:14 WBC RBC Hgb Hct MCV MCH MCHC RDW Plt Count Lymph % (Auto) [place] % (Auto) Lymph # (Auto) [place] # (Auto) Baso # (Auto) Seg Neutrophils % Seg Neuts % (Manual) Lymphocytes % (Manual) Monocytes % (Manual) Nucleated RBC % Seg Neutrophils # Seg Neutrophils # Man Lymphocytes # (Manual) Monocytes # (Manual) PT INR APTT Fibrinogen D-Dimer > 98734 H ABG pH POC ABG pCO2 POC ABG pO2 ABG pO2 ABG HCO3 ABG Base Excess ABG Hemoglobin ABG Oxyhemoglobin ABG Sodium ABG Potassium ABG Chloride ABG Glucose VBG pH Oxyhemoglobin Carboxyhemoglobin Sodium Potassium Chloride Carbon Dioxide BUN Creatinine Glucose POC Glucose Lactic Acid 3.90 H* Calcium Ionized Calcium Phosphorus Magnesium AST ALT Alkaline Phosphatase Lactate Dehydrogenase NT-Pro-B Natriuret Pep 2788 H Total Protein Albumin Arterial Blood Glucose Arterial Blood Ionized Calcium Urine WBC (Auto) Vancomycin Trough Phenytoin Crossmatch 10/04/20 10/04/20 10/04/20 14:00 14:00 18:00 WBC 15.7 H RBC 3.17 L Hgb 9.3 L 9.6 L Hct 27.2 L 28.0 L MCV MCH MCHC RDW 16.9 H Plt Count 41 L Lymph % (Auto) 8.6 L [place] % (Auto) Lymph # (Auto) [place] # (Auto) 0.9 H Baso # (Auto) Seg Neutrophils % 85.4 H Seg Neuts % (Manual) Lymphocytes % (Manual) Monocytes % (Manual) Nucleated RBC % Seg Neutrophils # 13.4 H Seg Neutrophils # Man Lymphocytes # (Manual) Monocytes # (Manual) PT INR APTT Fibrinogen D-Dimer ABG pH POC ABG pCO2 POC ABG pO2 ABG pO2 ABG HCO3 ABG Base Excess ABG Hemoglobin ABG Oxyhemoglobin ABG Sodium ABG Potassium ABG Chloride ABG Glucose VBG pH Oxyhemoglobin Carboxyhemoglobin Sodium 133 L Potassium Chloride 96.4 L Carbon Dioxide BUN 18 H Creatinine 1.7 H Glucose POC Glucose Lactic Acid Calcium 6.3 L Ionized Calcium Phosphorus Magnesium AST ALT Alkaline Phosphatase Lactate Dehydrogenase NT-Pro-B Natriuret Pep Total Protein Albumin Arterial Blood Glucose Arterial Blood Ionized Calcium Urine WBC (Auto) Vancomycin Trough Phenytoin Crossmatch 10/04/20 10/04/2010/05/20 18:00 22:00 05:00 WBC 17.6 H RBC 3.34 L Hgb 9.9 L Hct 29.4 L MCV MCH MCHC RDW 17.1 H Plt Count 56 L Lymph % (Auto) 8.5 L [place] % (Auto) Lymph # (Auto) [place] # (Auto) 1.0 H Baso # (Auto) Seg Neutrophils % 85.1 H Seg Neuts % (Manual) Lymphocytes % (Manual) Monocytes % (Manual) Nucleated RBC % Seg Neutrophils # 15.0 H Seg Neutrophils # Man Lymphocytes # (Manual) Monocytes # (Manual) PT INR APTT Fibrinogen D-Dimer ABG pH POC ABG pCO2 POC ABG pO2 ABG pO2 ABG HCO3 ABG Base Excess ABG Hemoglobin ABG Oxyhemoglobin ABG Sodium ABG Potassium ABG Chloride ABG Glucose VBG pH Oxyhemoglobin Carboxyhemoglobin Sodium 136 L Potassium Chloride Carbon Dioxide BUN 18 H Creatinine 1.7 H Glucose POC Glucose Lactic Acid 2.30 H* Calcium 6.6 L Ionized Calcium Phosphorus Magnesium AST ALT Alkaline Phosphatase Lactate Dehydrogenase NT-Pro-B Natriuret Pep Total Protein Albumin Arterial Blood Glucose Arterial Blood Ionized Calcium Urine WBC (Auto) Vancomycin Trough Phenytoin Crossmatch 10/05/20 10/05/20 10/05/20 05:00 05:00 05:03 WBC RBC Hgb Hct MCV MCH MCHC RDW Plt Count Lymph % (Auto) [place] % (Auto) Lymph # (Auto) [place] # (Auto) Baso # (Auto) Seg Neutrophils % Seg Neuts % (Manual) Lymphocytes % (Manual) Monocytes % (Manual) Nucleated RBC % Seg Neutrophils # Seg Neutrophils # Man Lymphocytes # (Manual) Monocytes # (Manual) PT INR APTT Fibrinogen D-Dimer ABG pH 7.458 H POC ABG pCO2 POC ABG pO2 ABG pO2 74.3 L ABG HCO3 27.5 H ABG Base Excess 3.4 H ABG Hemoglobin 10.0 L ABG Oxyhemoglobin ABG Sodium ABG Potassium ABG Chloride ABG Glucose VBG pH Oxyhemoglobin 94.9 L Carboxyhemoglobin Sodium Potassium Chloride Carbon Dioxide BUN 19 H Creatinine 1.8 H Glucose POC Glucose Lactic Acid Calcium 6.8 L Ionized Calcium 3.9 L Phosphorus Magnesium AST 225 H ALT 85 H Alkaline Phosphatase Lactate Dehydrogenase NT-Pro-B Natriuret Pep Total Protein 4.5 L Albumin 2.7 L Arterial Blood Glucose Arterial Blood Ionized Calcium Urine WBC (Auto) Vancomycin Trough Phenytoin Crossmatch 10/05/20 10/05/20 10/05/20 10:10 15:00 19:40 WBC RBC Hgb Hct MCV MCH MCHC RDW Plt Count Lymph % (Auto) [place] % (Auto) Lymph # (Auto) [place] # (Auto) Baso # (Auto) Seg Neutrophils % Seg Neuts % (Manual) Lymphocytes % (Manual) Monocytes % (Manual) Nucleated RBC % Seg Neutrophils # Seg Neutrophils # Man Lymphocytes # (Manual) Monocytes # (Manual) PT INR APTT Fibrinogen D-Dimer ABG pH POC ABG pCO2 POC ABG pO2 ABG pO2 ABG HCO3 ABG Base Excess ABG Hemoglobin ABG Oxyhemoglobin ABG Sodium ABG Potassium ABG Chloride ABG Glucose VBG pH Oxyhemoglobin Carboxyhemoglobin Sodium Potassium 3.5 L Chloride Carbon Dioxide 31 H 32 H BUN 19 H 19 H Creatinine 1.8 H 1.8 H Glucose POC Glucose Lactic Acid Calcium 7.0 L 7.2 L Ionized Calcium Phosphorus Magnesium 2.90 H AST ALT Alkaline Phosphatase Lactate Dehydrogenase NT-Pro-B Natriuret Pep Total Protein Albumin Arterial Blood Glucose Arterial Blood Ionized Calcium Urine WBC (Auto) Vancomycin Trough Phenytoin Crossmatch 10/06/20 10/06/20 10/06/20 01:05 03:12 04:00 WBC 17.1 H RBC 3.47 L Hgb Hct MCV MCH MCHC RDW 17.4 H Plt Count 82 L Lymph % (Auto) 8.3 L [place] % (Auto) Lymph # (Auto) [place] # (Auto) 1.1 H Baso # (Auto) Seg Neutrophils % 83.8 H Seg Neuts % (Manual) Lymphocytes % (Manual) Monocytes % (Manual) Nucleated RBC % Seg Neutrophils # 14.3 H Seg Neutrophils # Man Lymphocytes # (Manual) Monocytes # (Manual) PT INR APTT Fibrinogen D-Dimer ABG pH 7.474 H POC ABG pCO2 POC ABG pO2 129.5 H ABG pO2 ABG HCO3 ABG Base Excess ABG Hemoglobin 11.4 L ABG Oxyhemoglobin ABG Sodium 131.8 L ABG Potassium ABG Chloride ABG Glucose 103 H VBG pH Oxyhemoglobin Carboxyhemoglobin 0.3 L Sodium Potassium Chloride Carbon Dioxide BUN Creatinine Glucose POC Glucose Lactic Acid Calcium Ionized Calcium Phosphorus Magnesium 3.70 H AST ALT Alkaline Phosphatase Lactate Dehydrogenase NT-Pro-B Natriuret Pep Total Protein Albumin Arterial Blood Glucose 103 H Arterial Blood Ionized Calcium 4.2 L Urine WBC (Auto) Vancomycin Trough Phenytoin Crossmatch 10/06/20 10/06/20 10/06/20 04:00 05:31 08:12 WBC RBC Hgb Hct MCV MCH MCHC RDW Plt Count Lymph % (Auto) [place] % (Auto) Lymph # (Auto) [place] # (Auto) Baso # (Auto) Seg Neutrophils % Seg Neuts % (Manual) Lymphocytes % (Manual) Monocytes % (Manual) Nucleated RBC % Seg Neutrophils # Seg Neutrophils # Man Lymphocytes # (Manual) Monocytes # (Manual) PT INR APTT Fibrinogen D-Dimer ABG pH POC ABG pCO2 POC ABG pO2 ABG pO2 ABG HCO3 ABG Base Excess ABG Hemoglobin ABG Oxyhemoglobin ABG Sodium ABG Potassium ABG Chloride ABG Glucose VBG pH Oxyhemoglobin Carboxyhemoglobin Sodium Potassium 3.5 L Chloride Carbon Dioxide BUN 19 H Creatinine 1.8 H Glucose 102 H POC Glucose 116 H Lactic Acid Calcium 7.2 L Ionized Calcium Phosphorus Magnesium 5.40 H AST 307 H ALT 137 H Alkaline Phosphatase Lactate Dehydrogenase NT-Pro-B Natriuret Pep Total Protein 4.5 L Albumin 2.6 L Arterial Blood Glucose Arterial Blood Ionized Calcium Urine WBC (Auto) Vancomycin Trough Phenytoin Crossmatch 10/06/20 10/06/20 10/06/20 11:00 11:50 20:13 WBC RBC Hgb Hct MCV MCH MCHC RDW Plt Count Lymph % (Auto) [place] % (Auto) Lymph # (Auto) [place] # (Auto) Baso # (Auto) Seg Neutrophils % Seg Neuts % (Manual) Lymphocytes % (Manual) Monocytes % (Manual) Nucleated RBC % Seg Neutrophils # Seg Neutrophils # Man Lymphocytes # (Manual) Monocytes # (Manual) PT INR APTT Fibrinogen D-Dimer ABG pH POC ABG pCO2 POC ABG pO2 ABG pO2 ABG HCO3 ABG Base Excess ABG Hemoglobin ABG Oxyhemoglobin ABG Sodium ABG Potassium ABG Chloride ABG Glucose VBG pH Oxyhemoglobin Carboxyhemoglobin Sodium Potassium Chloride Carbon Dioxide BUN Creatinine Glucose POC Glucose 106 H Lactic Acid Calcium Ionized Calcium Phosphorus Magnesium 6.50 H 6.20 H AST ALT Alkaline Phosphatase Lactate Dehydrogenase NT-Pro-B Natriuret Pep Total Protein Albumin Arterial Blood Glucose Arterial Blood Ionized Calcium Urine WBC (Auto) Vancomycin Trough Phenytoin Crossmatch 10/06/20 10/06/20 10/06/20 20:17 22:29 23:57 WBC RBC Hgb Hct MCV MCH MCHC RDW Plt Count Lymph % (Auto) [place] % (Auto) Lymph # (Auto) [place] # (Auto) Baso # (Auto) Seg Neutrophils % Seg Neuts % (Manual) Lymphocytes % (Manual) Monocytes % (Manual) Nucleated RBC % Seg Neutrophils # Seg Neutrophils # Man Lymphocytes # (Manual) Monocytes # (Manual) PT INR APTT Fibrinogen D-Dimer ABG pH POC ABG pCO2 POC ABG pO2 ABG pO2 ABG HCO3 ABG Base Excess ABG Hemoglobin ABG Oxyhemoglobin ABG Sodium ABG Potassium ABG Chloride ABG Glucose VBG pH Oxyhemoglobin Carboxyhemoglobin Sodium Potassium Chloride Carbon Dioxide BUN Creatinine Glucose POC Glucose 112 H 126 H 133 H Lactic Acid Calcium Ionized Calcium Phosphorus Magnesium AST ALT Alkaline Phosphatase Lactate Dehydrogenase NT-Pro-B Natriuret Pep Total Protein Albumin Arterial Blood Glucose Arterial Blood Ionized Calcium Urine WBC (Auto) Vancomycin Trough Phenytoin Crossmatch 10/07/20 10/07/20 10/07/20 00:35 02:22 03:16 WBC RBC Hgb Hct MCV MCH MCHC RDW Plt Count Lymph % (Auto) [place] % (Auto) Lymph # (Auto) [place] # (Auto) Baso # (Auto) Seg Neutrophils % Seg Neuts % (Manual) Lymphocytes % (Manual) Monocytes % (Manual) Nucleated RBC % Seg Neutrophils # Seg Neutrophils # Man Lymphocytes # (Manual) Monocytes # (Manual) PT INR APTT Fibrinogen D-Dimer ABG pH POC ABG pCO2 POC ABG pO2 ABG pO2 ABG HCO3 ABG Base Excess ABG Hemoglobin 11.6 L ABG Oxyhemoglobin ABG Sodium ABG Potassium ABG Chloride ABG Glucose 156 H VBG pH Oxyhemoglobin Carboxyhemoglobin 0.3 L Sodium Potassium Chloride Carbon Dioxide BUN Creatinine Glucose POC Glucose 124 H Lactic Acid Calcium Ionized Calcium Phosphorus Magnesium 5.90 H AST ALT Alkaline Phosphatase Lactate Dehydrogenase NT-Pro-B Natriuret Pep Total Protein Albumin Arterial Blood Glucose 156 H Arterial Blood Ionized Calcium 4.2 L Urine WBC (Auto) Vancomycin Trough Phenytoin Crossmatch 10/07/20 10/07/20 10/07/20 04:06 05:45 07:05 WBC 19.2 H RBC 3.57 L Hgb Hct MCV MCH MCHC 35 H RDW 17.1 H Plt Count 129 L Lymph % (Auto) [place] % (Auto) Lymph # (Auto) [place] # (Auto) Baso # (Auto) Seg Neutrophils % Seg Neuts % (Manual) 94.0 H Lymphocytes % (Manual) 6.0 L Monocytes % (Manual) Nucleated RBC % Seg Neutrophils # Seg Neutrophils # Man 18.0 H Lymphocytes # (Manual) Monocytes # (Manual) PT INR APTT Fibrinogen D-Dimer ABG pH POC ABG pCO2 POC ABG pO2 ABG pO2 ABG HCO3 ABG Base Excess ABG Hemoglobin ABG Oxyhemoglobin ABG Sodium ABG Potassium ABG Chloride ABG Glucose VBG pH Oxyhemoglobin Carboxyhemoglobin Sodium Potassium Chloride Carbon Dioxide BUN Creatinine Glucose POC Glucose 135 H 149 H Lactic Acid Calcium Ionized Calcium Phosphorus Magnesium AST ALT Alkaline Phosphatase Lactate Dehydrogenase NT-Pro-B Natriuret Pep Total Protein Albumin Arterial Blood Glucose Arterial Blood Ionized Calcium Urine WBC (Auto) Vancomycin Trough Phenytoin Crossmatch 10/07/20 10/07/20 10/07/20 07:05 07:05 12:21 WBC RBC Hgb Hct MCV MCH MCHC RDW Plt Count Lymph % (Auto) [place] % (Auto) Lymph # (Auto) [place] # (Auto) Baso # (Auto) Seg Neutrophils % Seg Neuts % (Manual) Lymphocytes % (Manual) Monocytes % (Manual) Nucleated RBC % Seg Neutrophils # Seg Neutrophils # Man Lymphocytes # (Manual) Monocytes # (Manual) PT INR APTT Fibrinogen D-Dimer ABG pH POC ABG pCO2 POC ABG pO2 ABG pO2 ABG HCO3 ABG Base Excess ABG Hemoglobin ABG Oxyhemoglobin ABG Sodium ABG Potassium ABG Chloride ABG Glucose VBG pH Oxyhemoglobin Carboxyhemoglobin Sodium Potassium Chloride Carbon Dioxide BUN 21 H Creatinine 1.7 H Glucose 171 H POC Glucose 124 H Lactic Acid Calcium 7.4 L Ionized Calcium Phosphorus Magnesium 6.10 H AST 245 H ALT 147 H Alkaline Phosphatase Lactate Dehydrogenase NT-Pro-B Natriuret Pep Total Protein 5.3 L Albumin 2.8 L Arterial Blood Glucose Arterial Blood Ionized Calcium Urine WBC (Auto) Vancomycin Trough Phenytoin Crossmatch 10/07/20 10/07/20 10/07/20 19:52 21:00 21:50 WBC RBC Hgb Hct MCV MCH MCHC RDW Plt Count Lymph % (Auto) [place] % (Auto) Lymph # (Auto) [place] # (Auto) Baso # (Auto) Seg Neutrophils % Seg Neuts % (Manual) Lymphocytes % (Manual) Monocytes % (Manual) Nucleated RBC % Seg Neutrophils # Seg Neutrophils # Man Lymphocytes # (Manual) Monocytes # (Manual) PT INR APTT Fibrinogen D-Dimer ABG pH POC ABG pCO2 POC ABG pO2 ABG pO2 ABG HCO3 ABG Base Excess ABG Hemoglobin ABG Oxyhemoglobin ABG Sodium ABG Potassium ABG Chloride ABG Glucose VBG pH Oxyhemoglobin Carboxyhemoglobin Sodium Potassium Chloride Carbon Dioxide BUN Creatinine Glucose POC Glucose 193 H 138 H Lactic Acid Calcium Ionized Calcium 4.4 L Phosphorus Magnesium AST ALT Alkaline Phosphatase Lactate Dehydrogenase NT-Pro-B Natriuret Pep Total Protein Albumin Arterial Blood Glucose Arterial Blood Ionized Calcium Urine WBC (Auto) Vancomycin Trough Phenytoin Crossmatch 10/07/20 10/08/20 10/08/20 23:41 04:20 05:30 WBC RBC Hgb Hct MCV MCH MCHC RDW Plt Count Lymph % (Auto) [place] % (Auto) Lymph # (Auto) [place] # (Auto) Baso # (Auto) Seg Neutrophils % Seg Neuts % (Manual) Lymphocytes % (Manual) Monocytes % (Manual) Nucleated RBC % Seg Neutrophils # Seg Neutrophils # Man Lymphocytes # (Manual) Monocytes # (Manual) PT INR APTT Fibrinogen D-Dimer ABG pH 7.467 H POC ABG pCO2 POC ABG pO2 189.8 H ABG pO2 ABG HCO3 ABG Base Excess ABG Hemoglobin 10.8 L ABG Oxyhemoglobin ABG Sodium ABG Potassium ABG Chloride ABG Glucose 133 H VBG pH Oxyhemoglobin Carboxyhemoglobin Sodium Potassium Chloride Carbon Dioxide BUN Creatinine Glucose POC Glucose 118 H 114 H Lactic Acid Calcium Ionized Calcium Phosphorus Magnesium AST ALT Alkaline Phosphatase Lactate Dehydrogenase NT-Pro-B Natriuret Pep Total Protein Albumin Arterial Blood Glucose 133 H Arterial Blood Ionized Calcium 4.2 L Urine WBC (Auto) Vancomycin Trough Phenytoin Crossmatch 10/08/20 10/08/20 10/08/20 05:43 06:42 06:42 WBC 23.6 H RBC 3.54 L Hgb Hct MCV MCH MCHC RDW 17.8 H Plt Count Lymph % (Auto) [place] % (Auto) Lymph # (Auto) [place] # (Auto) Baso # (Auto) Seg Neutrophils % Seg Neuts % (Manual) 93.0 H Lymphocytes % (Manual) 3.0 L Monocytes % (Manual) Nucleated RBC % 1.0 H Seg Neutrophils # Seg Neutrophils # Man 21.9 H Lymphocytes # (Manual) 0.7 L Monocytes # (Manual) 0.9 H PT INR APTT Fibrinogen D-Dimer ABG pH POC ABG pCO2 POC ABG pO2 ABG pO2 ABG HCO3 ABG Base Excess ABG Hemoglobin ABG Oxyhemoglobin ABG Sodium ABG Potassium ABG Chloride ABG Glucose VBG pH Oxyhemoglobin Carboxyhemoglobin Sodium Potassium Chloride Carbon Dioxide BUN 28 H Creatinine 1.6 H Glucose 141 H POC Glucose 126 H Lactic Acid Calcium 7.6 L Ionized Calcium Phosphorus Magnesium AST 162 H ALT 103 H Alkaline Phosphatase Lactate Dehydrogenase NT-Pro-B Natriuret Pep Total Protein 5.4 L Albumin 2.7 L Arterial Blood Glucose Arterial Blood Ionized Calcium Urine WBC (Auto) Vancomycin Trough Phenytoin Crossmatch 10/08/20 10/08/20 10/08/20 11:20 16:05 20:14 WBC RBC Hgb Hct MCV MCH MCHC RDW Plt Count Lymph % (Auto) [place] % (Auto) Lymph # (Auto) [place] # (Auto) Baso # (Auto) Seg Neutrophils % Seg Neuts % (Manual) Lymphocytes % (Manual) Monocytes % (Manual) Nucleated RBC % Seg Neutrophils # Seg Neutrophils # Man Lymphocytes # (Manual) Monocytes # (Manual) PT INR APTT Fibrinogen D-Dimer ABG pH POC ABG pCO2 POC ABG pO2 ABG pO2 ABG HCO3 ABG Base Excess ABG Hemoglobin ABG Oxyhemoglobin ABG Sodium ABG Potassium ABG Chloride ABG Glucose VBG pH Oxyhemoglobin Carboxyhemoglobin Sodium Potassium Chloride Carbon Dioxide BUN Creatinine Glucose POC Glucose 127 H 172 H 147 H Lactic Acid Calcium Ionized Calcium Phosphorus Magnesium AST ALT Alkaline Phosphatase Lactate Dehydrogenase NT-Pro-B Natriuret Pep Total Protein Albumin Arterial Blood Glucose Arterial Blood Ionized Calcium Urine WBC (Auto) Vancomycin Trough Phenytoin Crossmatch 10/08/20 10/08/20 10/09/20 21:27 23:24 02:10 WBC RBC Hgb Hct MCV MCH MCHC RDW Plt Count Lymph % (Auto) [place] % (Auto) Lymph # (Auto) [place] # (Auto) Baso # (Auto) Seg Neutrophils % Seg Neuts % (Manual) Lymphocytes % (Manual) Monocytes % (Manual) Nucleated RBC % Seg Neutrophils # Seg Neutrophils # Man Lymphocytes # (Manual) Monocytes # (Manual) PT INR APTT Fibrinogen D-Dimer ABG pH POC ABG pCO2 POC ABG pO2 ABG pO2 ABG HCO3 ABG Base Excess ABG Hemoglobin ABG Oxyhemoglobin ABG Sodium ABG Potassium ABG Chloride ABG Glucose VBG pH Oxyhemoglobin Carboxyhemoglobin Sodium Potassium Chloride Carbon Dioxide BUN Creatinine Glucose POC Glucose 140 H 135 H 111 H Lactic Acid Calcium Ionized Calcium Phosphorus Magnesium AST ALT Alkaline Phosphatase Lactate Dehydrogenase NT-Pro-B Natriuret Pep Total Protein Albumin Arterial Blood Glucose Arterial Blood Ionized Calcium Urine WBC (Auto) Vancomycin Trough Phenytoin Crossmatch 10/09/20 10/09/20 10/09/20 03:44 04:39 05:46 WBC 19.7 H RBC 3.51 L Hgb Hct MCV MCH MCHC RDW 17.7 H Plt Count Lymph % (Auto) [place] % (Auto) Lymph # (Auto) [place] # (Auto) Baso # (Auto) Seg Neutrophils % Seg Neuts % (Manual) 86.0 H Lymphocytes % (Manual) 4.0 L Monocytes % (Manual) 9.0 H Nucleated RBC % Seg Neutrophils # Seg Neutrophils # Man 16.9 H Lymphocytes # (Manual) 0.8 L Monocytes # (Manual) 1.8 H PT INR APTT Fibrinogen D-Dimer ABG pH 7.513 H POC ABG pCO2 POC ABG pO2 33.6 L ABG pO2 ABG HCO3 ABG Base Excess ABG Hemoglobin 11.1 L ABG Oxyhemoglobin 70.2 L ABG Sodium ABG Potassium 3.2 L ABG Chloride 108.0 H ABG Glucose 108 H VBG pH Oxyhemoglobin Carboxyhemoglobin Sodium Potassium Chloride Carbon Dioxide BUN Creatinine Glucose POC Glucose 109 H Lactic Acid Calcium Ionized Calcium Phosphorus Magnesium AST ALT Alkaline Phosphatase Lactate Dehydrogenase NT-Pro-B Natriuret Pep Total Protein Albumin Arterial Blood Glucose 108 H Arterial Blood Ionized Calcium 4.3 L Urine WBC (Auto) Vancomycin Trough Phenytoin Crossmatch 10/09/20 10/10/20 10/10/20 05:46 04:00 04:00 WBC 18.4 H RBC Hgb Hct MCV MCH MCHC RDW 17.5 H Plt Count Lymph % (Auto) 9.8 L [place] % (Auto) 8.8 H Lymph # (Auto) [place] # (Auto) 1.6 H Baso # (Auto) Seg Neutrophils % 80.0 H Seg Neuts % (Manual) Lymphocytes % (Manual) Monocytes % (Manual) Nucleated RBC % Seg Neutrophils # 14.7 H Seg Neutrophils # Man Lymphocytes # (Manual) Monocytes # (Manual) PT INR APTT Fibrinogen D-Dimer ABG pH POC ABG pCO2 POC ABG pO2 ABG pO2 ABG HCO3 ABG Base Excess ABG Hemoglobin ABG Oxyhemoglobin ABG Sodium ABG Potassium ABG Chloride ABG Glucose VBG pH Oxyhemoglobin Carboxyhemoglobin Sodium 146 H Potassium 3.2 L 2.9 L* Chloride 108.9 H 112.6 H Carbon Dioxide BUN 34 H 28 H Creatinine 1.4 H 1.3 H Glucose 109 H 101 H POC Glucose Lactic Acid Calcium 7.6 L 7.8 L Ionized Calcium Phosphorus Magnesium AST 137 H 122 H ALT 99 H 81 H Alkaline Phosphatase Lactate Dehydrogenase NT-Pro-B Natriuret Pep Total Protein 5.1 L 5.2 L Albumin 2.6 L 2.7 L Arterial Blood Glucose Arterial Blood Ionized Calcium Urine WBC (Auto) Vancomycin Trough Phenytoin Crossmatch 10/10/20 10/10/20 10/11/20 04:42 09:50 00:44 WBC RBC Hgb Hct MCV MCH MCHC RDW Plt Count Lymph % (Auto) [place] % (Auto) Lymph # (Auto) [place] # (Auto) Baso # (Auto) Seg Neutrophils % Seg Neuts % (Manual) Lymphocytes % (Manual) Monocytes % (Manual) Nucleated RBC % Seg Neutrophils # Seg Neutrophils # Man Lymphocytes # (Manual) Monocytes # (Manual) PT INR APTT Fibrinogen D-Dimer ABG pH 7.534 H POC ABG pCO2 POC ABG pO2 ABG pO2 95.2 H ABG HCO3 ABG Base Excess ABG Hemoglobin 11.3 L ABG Oxyhemoglobin ABG Sodium ABG Potassium ABG Chloride ABG Glucose VBG pH Oxyhemoglobin Carboxyhemoglobin Sodium Potassium Chloride Carbon Dioxide BUN Creatinine Glucose POC Glucose 109 H 106 H Lactic Acid Calcium Ionized Calcium Phosphorus Magnesium AST ALT Alkaline Phosphatase Lactate Dehydrogenase NT-Pro-B Natriuret Pep Total Protein Albumin Arterial Blood Glucose Arterial Blood Ionized Calcium Urine WBC (Auto) Vancomycin Trough Phenytoin Crossmatch 10/11/20 10/11/20 10/11/20 04:00 04:00 06:08 WBC 27.0 H RBC Hgb Hct MCV MCH MCHC RDW 17.7 H Plt Count Lymph % (Auto) 6.3 L [place] % (Auto) Lymph # (Auto) [place] # (Auto) 1.5 H Baso # (Auto) Seg Neutrophils % 87.1 H Seg Neuts % (Manual) Lymphocytes % (Manual) Monocytes % (Manual) Nucleated RBC % Seg Neutrophils # 23.5 H Seg Neutrophils # Man Lymphocytes # (Manual) Monocytes # (Manual) PT INR APTT Fibrinogen D-Dimer ABG pH POC ABG pCO2 POC ABG pO2 ABG pO2 ABG HCO3 ABG Base Excess ABG Hemoglobin ABG Oxyhemoglobin ABG Sodium ABG Potassium ABG Chloride ABG Glucose VBG pH Oxyhemoglobin Carboxyhemoglobin Sodium Potassium 3.2 L Chloride 110.4 H Carbon Dioxide 19 L BUN 22 H Creatinine Glucose 116 H POC Glucose 107 H Lactic Acid Calcium 7.7 L Ionized Calcium Phosphorus Magnesium 1.60 L AST ALT Alkaline Phosphatase Lactate Dehydrogenase NT-Pro-B Natriuret Pep Total Protein Albumin Arterial Blood Glucose Arterial Blood Ionized Calcium Urine WBC (Auto) Vancomycin Trough Phenytoin Crossmatch 10/11/20 10/11/20 10/12/20 11:41 13:26 03:52 WBC RBC Hgb Hct MCV MCH MCHC RDW Plt Count Lymph % (Auto) [place] % (Auto) Lymph # (Auto) [place] # (Auto) Baso # (Auto) Seg Neutrophils % Seg Neuts % (Manual) Lymphocytes % (Manual) Monocytes % (Manual) Nucleated RBC % Seg Neutrophils # Seg Neutrophils # Man Lymphocytes # (Manual) Monocytes # (Manual) PT INR APTT Fibrinogen D-Dimer ABG pH POC ABG pCO2 POC ABG pO2 ABG pO2 ABG HCO3 ABG Base Excess ABG Hemoglobin ABG Oxyhemoglobin ABG Sodium ABG Potassium ABG Chloride ABG Glucose VBG pH Oxyhemoglobin Carboxyhemoglobin Sodium Potassium Chloride Carbon Dioxide BUN Creatinine Glucose POC Glucose 116 H 114 H Lactic Acid Calcium Ionized Calcium Phosphorus Magnesium AST ALT Alkaline Phosphatase Lactate Dehydrogenase NT-Pro-B Natriuret Pep Total Protein Albumin Arterial Blood Glucose Arterial Blood Ionized Calcium Urine WBC (Auto) 24.0 H Vancomycin Trough Phenytoin Crossmatch 10/12/20 10/12/20 10/12/20 04:24 14:47 21:33 WBC RBC Hgb Hct MCV MCH MCHC RDW Plt Count Lymph % (Auto) [place] % (Auto) Lymph # (Auto) [place] # (Auto) Baso # (Auto) Seg Neutrophils % Seg Neuts % (Manual) Lymphocytes % (Manual) Monocytes % (Manual) Nucleated RBC % Seg Neutrophils # Seg Neutrophils # Man Lymphocytes # (Manual) Monocytes # (Manual) PT INR APTT Fibrinogen D-Dimer ABG pH POC ABG pCO2 POC ABG pO2 ABG pO2 ABG HCO3 ABG Base Excess ABG Hemoglobin ABG Oxyhemoglobin ABG Sodium ABG Potassium ABG Chloride ABG Glucose VBG pH Oxyhemoglobin Carboxyhemoglobin Sodium Potassium Chloride 109.9 H Carbon Dioxide 13 L BUN 18 H Creatinine Glucose 119 H POC Glucose 107 H Lactic Acid Calcium 7.6 L Ionized Calcium Phosphorus Magnesium 1.60 L AST ALT Alkaline Phosphatase Lactate Dehydrogenase NT-Pro-B Natriuret Pep Total Protein Albumin Arterial Blood Glucose Arterial Blood Ionized Calcium Urine WBC (Auto) Vancomycin Trough Phenytoin Crossmatch 10/12/20 10/12/20 10/13/20 Unknown Unknown 07:00 WBC 24.3 H RBC 3.38 L Hgb 9.8 L Hct MCV MCH MCHC RDW 18.7 H Plt Count Lymph % (Auto) [place] % (Auto) Lymph # (Auto) [place] # (Auto) Baso # (Auto) Seg Neutrophils % Seg Neuts % (Manual) 93.5 H Lymphocytes % (Manual) 4.5 L Monocytes % (Manual) Nucleated RBC % Seg Neutrophils # Seg Neutrophils # Man 22.7 H Lymphocytes # (Manual) 1.1 L Monocytes # (Manual) PT INR APTT Fibrinogen D-Dimer ABG pH POC ABG pCO2 POC ABG pO2 ABG pO2 ABG HCO3 ABG Base Excess ABG Hemoglobin ABG Oxyhemoglobin ABG Sodium ABG Potassium ABG Chloride ABG Glucose VBG pH Oxyhemoglobin Carboxyhemoglobin Sodium 135 L D Potassium 3.1 L Chloride Carbon Dioxide 17 L BUN Creatinine Glucose 510 H* POC Glucose Lactic Acid Calcium 7.2 L Ionized Calcium Phosphorus Magnesium AST ALT Alkaline Phosphatase Lactate Dehydrogenase NT-Pro-B Natriuret Pep Total Protein Albumin Arterial Blood Glucose Arterial Blood Ionized Calcium Urine WBC (Auto) Vancomycin Trough Phenytoin 5.7 L Crossmatch 10/13/20 10/13/20 10/13/20 07:00 07:00 07:18 WBC 23.6 H RBC 3.26 L Hgb 9.4 L Hct 28.7 L MCV MCH MCHC RDW 18.3 H Plt Count Lymph % (Auto) [place] % (Auto) Lymph # (Auto) [place] # (Auto) Baso # (Auto) Seg Neutrophils % Seg Neuts % (Manual) Lymphocytes % (Manual) Monocytes % (Manual) Nucleated RBC % Seg Neutrophils # Seg Neutrophils # Man Lymphocytes # (Manual) Monocytes # (Manual) PT INR APTT Fibrinogen D-Dimer ABG pH 7.473 H POC ABG pCO2 20.7 L POC ABG pO2 137.9 H ABG pO2 ABG HCO3 ABG Base Excess ABG Hemoglobin 11.2 L ABG Oxyhemoglobin 98.3 H ABG Sodium 135.9 L ABG Potassium ABG Chloride 111.0 H ABG Glucose 109 H VBG pH Oxyhemoglobin Carboxyhemoglobin 0.3 L Sodium 135 L Potassium 3.5 L Chloride 109.1 H Carbon Dioxide 18 L BUN Creatinine Glucose POC Glucose Lactic Acid Calcium 7.3 L Ionized Calcium Phosphorus Magnesium 1.60 L AST ALT Alkaline Phosphatase Lactate Dehydrogenase NT-Pro-B Natriuret Pep Total Protein Albumin Arterial Blood Glucose 109 H Arterial Blood Ionized Calcium Urine WBC (Auto) Vancomycin Trough Phenytoin Crossmatch 10/14/20 10/14/20 10/15/20 04:00 04:00 05:50 WBC 28.6 H 23.2 H RBC 3.61 L 3.43 L Hgb 9.9 L Hct 30.0 L MCV MCH MCHC RDW 18.3 H 18.2 H Plt Count Lymph % (Auto) [place] % (Auto) Lymph # (Auto) [place] # (Auto) Baso # (Auto) Seg Neutrophils % Seg Neuts % (Manual) 88.0 H 90.0 H Lymphocytes % (Manual) 5.0 L 4.0 L Monocytes % (Manual) Nucleated RBC % Seg Neutrophils # Seg Neutrophils # Man 25.2 H 20.9 H Lymphocytes # (Manual) 0.9 L Monocytes # (Manual) 1.4 H 0.9 H PT INR APTT Fibrinogen D-Dimer ABG pH POC ABG pCO2 POC ABG pO2 ABG pO2 ABG HCO3 ABG Base Excess ABG Hemoglobin ABG Oxyhemoglobin ABG Sodium ABG Potassium ABG Chloride ABG Glucose VBG pH Oxyhemoglobin Carboxyhemoglobin Sodium Potassium Chloride 109.9 H Carbon Dioxide 17 L BUN Creatinine Glucose POC Glucose Lactic Acid Calcium Ionized Calcium Phosphorus Magnesium AST ALT Alkaline Phosphatase Lactate Dehydrogenase NT-Pro-B Natriuret Pep Total Protein Albumin Arterial Blood Glucose Arterial Blood Ionized Calcium Urine WBC (Auto) Vancomycin Trough Phenytoin Crossmatch 10/15/20 10/16/20 10/17/20 05:50 11:57 04:57 WBC 15.2 H RBC 3.43 L Hgb Hct MCV MCH MCHC RDW 18.1 H Plt Count Lymph % (Auto) [place] % (Auto) Lymph # (Auto) [place] # (Auto) Baso # (Auto) Seg Neutrophils % Seg Neuts % (Manual) Lymphocytes % (Manual) Monocytes % (Manual) Nucleated RBC % Seg Neutrophils # Seg Neutrophils # Man Lymphocytes # (Manual) Monocytes # (Manual) PT INR APTT Fibrinogen D-Dimer ABG pH POC ABG pCO2 POC ABG pO2 ABG pO2 ABG HCO3 ABG Base Excess ABG Hemoglobin ABG Oxyhemoglobin ABG Sodium ABG Potassium ABG Chloride ABG Glucose VBG pH Oxyhemoglobin Carboxyhemoglobin Sodium Potassium Chloride 110.3 H Carbon Dioxide 18 L BUN Creatinine Glucose 105 H POC Glucose 111 H Lactic Acid Calcium 8.3 L Ionized Calcium Phosphorus Magnesium AST ALT Alkaline Phosphatase Lactate Dehydrogenase NT-Pro-B Natriuret Pep Total Protein Albumin Arterial Blood Glucose Arterial Blood Ionized Calcium Urine WBC (Auto) Vancomycin Trough Phenytoin Crossmatch 10/17/20 10/17/20 10/18/20 05:25 21:16 01:31 WBC RBC Hgb Hct MCV MCH MCHC RDW Plt Count Lymph % (Auto) [place] % (Auto) Lymph # (Auto) [place] # (Auto) Baso # (Auto) Seg Neutrophils % Seg Neuts % (Manual) Lymphocytes % (Manual) Monocytes % (Manual) Nucleated RBC % Seg Neutrophils # Seg Neutrophils # Man Lymphocytes # (Manual) Monocytes # (Manual) PT INR APTT Fibrinogen D-Dimer ABG pH POC ABG pCO2 POC ABG pO2 ABG pO2 ABG HCO3 ABG Base Excess ABG Hemoglobin ABG Oxyhemoglobin ABG Sodium ABG Potassium ABG Chloride ABG Glucose VBG pH Oxyhemoglobin Carboxyhemoglobin Sodium Potassium Chloride Carbon Dioxide BUN Creatinine Glucose POC Glucose 107 H 106 H 119 H Lactic Acid Calcium Ionized Calcium Phosphorus Magnesium AST ALT Alkaline Phosphatase Lactate Dehydrogenase NT-Pro-B Natriuret Pep Total Protein Albumin Arterial Blood Glucose Arterial Blood Ionized Calcium Urine WBC (Auto) Vancomycin Trough Phenytoin Crossmatch 10/18/20 10/18/20 10/19/20 05:45 11:23 01:14 WBC RBC Hgb Hct MCV MCH MCHC RDW Plt Count Lymph % (Auto) [place] % (Auto) Lymph # (Auto) [place] # (Auto) Baso # (Auto) Seg Neutrophils % Seg Neuts % (Manual) Lymphocytes % (Manual) Monocytes % (Manual) Nucleated RBC % Seg Neutrophils # Seg Neutrophils # Man Lymphocytes # (Manual) Monocytes # (Manual) PT INR APTT Fibrinogen D-Dimer ABG pH POC ABG pCO2 POC ABG pO2 ABG pO2 ABG HCO3 ABG Base Excess ABG Hemoglobin ABG Oxyhemoglobin ABG Sodium ABG Potassium ABG Chloride ABG Glucose VBG pH Oxyhemoglobin Carboxyhemoglobin Sodium Potassium Chloride Carbon Dioxide BUN Creatinine Glucose POC Glucose 106 H 115 H 108 H Lactic Acid Calcium Ionized Calcium Phosphorus Magnesium AST ALT Alkaline Phosphatase Lactate Dehydrogenase NT-Pro-B Natriuret Pep Total Protein Albumin Arterial Blood Glucose Arterial Blood Ionized Calcium Urine WBC (Auto) Vancomycin Trough Phenytoin Crossmatch 10/19/20 10/20/20 10/20/20 09:57 05:40 07:59 WBC RBC Hgb Hct MCV MCH MCHC RDW Plt Count Lymph % (Auto) [place] % (Auto) Lymph # (Auto) [place] # (Auto) Baso # (Auto) Seg Neutrophils % Seg Neuts % (Manual) Lymphocytes % (Manual) Monocytes % (Manual) Nucleated RBC % Seg Neutrophils # Seg Neutrophils # Man Lymphocytes # (Manual) Monocytes # (Manual) PT INR APTT Fibrinogen D-Dimer ABG pH POC ABG pCO2 POC ABG pO2 ABG pO2 ABG HCO3 ABG Base Excess ABG Hemoglobin ABG Oxyhemoglobin ABG Sodium ABG Potassium ABG Chloride ABG Glucose VBG pH Oxyhemoglobin Carboxyhemoglobin Sodium Potassium Chloride Carbon Dioxide BUN Creatinine Glucose 106 H POC Glucose 122 H 109 H Lactic Acid Calcium Ionized Calcium Phosphorus Magnesium AST ALT Alkaline Phosphatase Lactate Dehydrogenase NT-Pro-B Natriuret Pep Total Protein Albumin Arterial Blood Glucose Arterial Blood Ionized Calcium Urine WBC (Auto) Vancomycin Trough Phenytoin Crossmatch 10/20/20 10/20/20 10/21/20 16:52 16:52 13:54 WBC 18.8 H 17.0 H RBC Hgb Hct MCV MCH MCHC RDW 17.7 H 17.8 H Plt Count 547 H 544 H Lymph % (Auto) 11.2 L [place] % (Auto) 8.1 H Lymph # (Auto) [place] # (Auto) 1.5 H Baso # (Auto) 0.2 H Seg Neutrophils % 78.8 H Seg Neuts % (Manual) Lymphocytes % (Manual) Monocytes % (Manual) Nucleated RBC % Seg Neutrophils # 14.8 H Seg Neutrophils # Man Lymphocytes # (Manual) Monocytes # (Manual) PT INR APTT Fibrinogen D-Dimer ABG pH POC ABG pCO2 POC ABG pO2 ABG pO2 ABG HCO3 ABG Base Excess ABG Hemoglobin ABG Oxyhemoglobin ABG Sodium ABG Potassium ABG Chloride ABG Glucose VBG pH Oxyhemoglobin Carboxyhemoglobin Sodium Potassium Chloride Carbon Dioxide BUN Creatinine Glucose POC Glucose Lactic Acid Calcium Ionized Calcium Phosphorus Magnesium AST ALT Alkaline Phosphatase Lactate Dehydrogenase NT-Pro-B Natriuret Pep Total Protein Albumin Arterial Blood Glucose Arterial Blood Ionized Calcium Urine WBC (Auto) Vancomycin Trough 34.5 H Phenytoin Crossmatch 10/21/20 10/22/20 10/23/20 13:54 07:26 05:34 WBC 18.7 H 13.0 H RBC 3.64 L 3.50 L Hgb Hct 30.0 L MCV MCH MCHC 35 H RDW 17.7 H 17.6 H Plt Count 502 H 503 H Lymph % (Auto) [place] % (Auto) Lymph # (Auto) [place] # (Auto) Baso # (Auto) Seg Neutrophils % Seg Neuts % (Manual) Lymphocytes % (Manual) Monocytes % (Manual) Nucleated RBC % Seg Neutrophils # Seg Neutrophils # Man Lymphocytes # (Manual) Monocytes # (Manual) PT INR APTT Fibrinogen D-Dimer ABG pH POC ABG pCO2 POC ABG pO2 ABG pO2 ABG HCO3 ABG Base Excess ABG Hemoglobin ABG Oxyhemoglobin ABG Sodium ABG Potassium ABG Chloride ABG Glucose VBG pH Oxyhemoglobin Carboxyhemoglobin Sodium 136 L Potassium Chloride Carbon Dioxide BUN Creatinine Glucose 120 H POC Glucose Lactic Acid Calcium Ionized Calcium Phosphorus Magnesium AST ALT Alkaline Phosphatase Lactate Dehydrogenase NT-Pro-B Natriuret Pep Total Protein Albumin Arterial Blood Glucose Arterial Blood Ionized Calcium Urine WBC (Auto) Vancomycin Trough Phenytoin Crossmatch 10/23/20 10/26/20 10/27/20 05:34 10:30 07:53 WBC 13.6 H RBC 3.38 L Hgb 10.0 L Hct 28.8 L MCV MCH MCHC 35 H RDW 17.6 H Plt Count Lymph % (Auto) [place] % (Auto) Lymph # (Auto) [place] # (Auto) Baso # (Auto) Seg Neutrophils % Seg Neuts % (Manual) Lymphocytes % (Manual) Monocytes % (Manual) Nucleated RBC % Seg Neutrophils # Seg Neutrophils # Man Lymphocytes # (Manual) Monocytes # (Manual) PT INR APTT Fibrinogen D-Dimer ABG pH 7.459 H POC ABG pCO2 POC ABG pO2 ABG pO2 112.2 H ABG HCO3 ABG Base Excess ABG Hemoglobin ABG Oxyhemoglobin ABG Sodium ABG Potassium ABG Chloride ABG Glucose VBG pH Oxyhemoglobin Carboxyhemoglobin Sodium 135 L Potassium Chloride Carbon Dioxide BUN Creatinine Glucose 105 H POC Glucose Lactic Acid Calcium Ionized Calcium Phosphorus Magnesium AST ALT Alkaline Phosphatase Lactate Dehydrogenase NT-Pro-B Natriuret Pep Total Protein Albumin Arterial Blood Glucose Arterial Blood Ionized Calcium Urine WBC (Auto) Vancomycin Trough Phenytoin Crossmatch 10/27/20 10/27/20 10/28/20 07:53 11:31 05:19 WBC RBC Hgb Hct MCV MCH MCHC RDW Plt Count Lymph % (Auto) [place] % (Auto) Lymph # (Auto) [place] # (Auto) Baso # (Auto) Seg Neutrophils % Seg Neuts % (Manual) Lymphocytes % (Manual) Monocytes % (Manual) Nucleated RBC % Seg Neutrophils # Seg Neutrophils # Man Lymphocytes # (Manual) Monocytes # (Manual) PT INR APTT Fibrinogen D-Dimer ABG pH POC ABG pCO2 POC ABG pO2 ABG pO2 ABG HCO3 ABG Base Excess ABG Hemoglobin ABG Oxyhemoglobin ABG Sodium ABG Potassium ABG Chloride ABG Glucose VBG pH Oxyhemoglobin Carboxyhemoglobin Sodium Potassium Chloride Carbon Dioxide BUN 20 H Creatinine Glucose 112 H POC Glucose 113 H 112 H Lactic Acid Calcium Ionized Calcium Phosphorus Magnesium AST 83 H ALT Alkaline Phosphatase Lactate Dehydrogenase NT-Pro-B Natriuret Pep Total Protein Albumin 3.8 L Arterial Blood Glucose Arterial Blood Ionized Calcium Urine WBC (Auto) Vancomycin Trough Phenytoin Crossmatch 10/29/20 10/29/20 07:56 07:56 WBC 13.6 H RBC Hgb Hct MCV MCH MCHC RDW 17.0 H Plt Count Lymph % (Auto) [place] % (Auto) Lymph # (Auto) [place] # (Auto) Baso # (Auto) Seg Neutrophils % Seg Neuts % (Manual) 80.0 H Lymphocytes % (Manual) Monocytes % (Manual) Nucleated RBC % Seg Neutrophils # Seg Neutrophils # Man 10.9 H Lymphocytes # (Manual) Monocytes # (Manual) PT INR APTT Fibrinogen D-Dimer ABG pH POC ABG pCO2 POC ABG pO2 ABG pO2 ABG HCO3 ABG Base Excess ABG Hemoglobin ABG Oxyhemoglobin ABG Sodium ABG Potassium ABG Chloride ABG Glucose VBG pH Oxyhemoglobin Carboxyhemoglobin Sodium Potassium Chloride Carbon Dioxide BUN Creatinine Glucose POC Glucose Lactic Acid Calcium Ionized Calcium Phosphorus 4.70 H Magnesium AST ALT Alkaline Phosphatase Lactate Dehydrogenase NT-Pro-B Natriuret Pep Total Protein Albumin Arterial Blood Glucose Arterial Blood Ionized Calcium Urine WBC (Auto) Vancomycin Trough Phenytoin Crossmatch
--- NOTE | 2020-10-29 11:58 | Progress Note ---
Assessment and Plan Assessment and plan: 30 year old -[place] female CHE 10/25/20 at 36w5d who presents with seizures in triage on 10/02/20. Pt was not able to provide history but per pt's , she presented to the hospital to return a 24 hour urine specimen for analysis. She then suddenly reported that she did not feel good. She was taken to labor and delivery and shortly after arrival, she began seizing. During this time, a code met was called because the patient became hypoxic. She was then noted to be without a pulse. Chest compressions were started immediately, and the patient was emergently taken to the operating room for delivery of the fetus. Off note, This patient has had care at [facility] with comanagement by [facility] since 11 wks complicated by ADHD, morbid obesity, generalized anxiety disorder, panic attacks, chronic narcotic use, fibromyalgia, GERD, Irritable Bowel Syndrome, Migraines, h/o endometrial ablation and ovarian vein embolization, genital herpes, insomnia, LGA fetus, nausea and vomiting, polyhydramnios, quad screen positive for Down's Syndrome, and previous x 3. She is GBS negative. , Patient tracheostomy on ventilatory support, unable to wean, continue supportive care poor prognosis --Acute hypoxic respiratory failure: Tracheostomy on T-piece , 5 L oxygen, saturating 100% Nebulizers, continue oxygen titrate O2 sats to more than 90% Pulmonary critical following --Sepsis; received antibiotics Continue to monitor off antibiotics ID following --Cardiac arrest; 10/07/2020 ,status post CPR --Acute metabolic encephalopathy --Acute hypoxic brain injury; Supportive care, closely monitor --Acute kidney injury; vasomotor nephropathy Resolved, renal function within normal limits, closely monitor --Shock; septic versus cardiogenic Requiring vasopressors, stable --DIC; sepsis, septic shock, resolved --History of preeclampsia; / hemorrhage Status post hysterectomy --History of C. difficile colitis; completed oral vancomycin --DVT/SVT and right upper extremity Very poor prognosis, Consults recommendations noted and appreciated We will closely monitor the patient and adjust management as needed Plan of care reviewed with the patient's nurse. 11:30: Pt brought to L&D triage for evaluation of possible labor. Pt accompanied by her spouse. Pt spouse poor historian; unable to obtain history- allergies at this time. Pt taken from registration to triage area via WC. Pt unresponsive, actively seizing with snorous respirations. claim analyst, Kassy, called and requesting assistance. 11:35: Multiple staff at bedside. Pt 02 sat 67% on nonrebreather, unable to read BP at this time. Yifan Theodore CRNA, at bedside for intubation and assistance with IV insertion. INT attempt by multiple RNs unsuccessful at this time. 11:42: Pt being bagged by KORIN, 02% 79%. No pulse palpated, compressions started at this time; bharati young called and Dr. Newberry preparing OR for emergent c/s. 11:44: Continued compressions on stretcher while transporting pt to OR 1. Pt being bagged with jaw thrust manuever in place by KORIN Stringer student. 11:45: Arrival to OR 1. Dr. Newberry and Dr. Portillo present for emergent c/s. Code team arrived for continued care. patient revived and c/s done Patient has been bleeding from C/s site followed by supracervical hysterectomy for severe bleeding Patient transfused multiple units of PRBC, Patient in DIC. Transferred to the ICU 10/03. Patient seen and examined at bedside this morning. Patient is nonresponsive and mechanically ventilated. On pressors. Labs reviewed-has leukocytosis, anemia, thrombocytopenia, ADOLPH and lactic acidosis. Started on IV antibiotics to cover possible sepsis secondary to DIC. Hematology oncology recommendations appreciated-needs additional cryoprecipitate and FFP. Monitor D-dimer, fibrinogen and frequent labs. Nephrology consulted for lactic acidosis and ADOLPH. 10/04. Remains mechanically ventilated. Kevin antibiotics. Labs shows improved acidosis - lactic acid 3.5. Hb drop noted. Getting transfused 2 units PRBCs. Platelet count is ~40k. Continue to monitor labs closely. Critical care team on board. 10/05; xray reviewed, concerning for multifocal infilrate, likely underlying Pneumonia, will add ID consult to assist with management of this critically ill patient, start tube feed, closely monitor renal system 10/06: Resumed care, remains on mechanical ventilation. No active bleeding, H&H stable. Continue to monitor CBC and BMP. Continue IV antibiotic for underlying pneumonia. Follow critical care and ID recommendation. 10/07: Remains on mechanical ventilation. No active bleeding, H&H stable. Critical care following, wean off ventilation as tolerated. 10/08: Patient had another cardiac arrest last night. Remains on mechanical ventilation, update family. Continue supportive care -poor prognosis 10/09: Called patient mother and discussed about patient care and management. Answered all question to best of my knowledge and family satisfaction. Patient remains on mechanical ventilation, cardiac arrest x2 so far. Critically sick, poor prognosis 10/10: remains on mechanical ventilation. h/h stable, no active bleeding. monitor CBC/BMP 10/11: WBC trended up with diarrhea, started on vancomycin po. remains on MV, off pressor, tolerating TF 10/12: remains on MV, off pressor, tolerating TF. called family for update but unable to reach, could not leave message as it was full. cont supportive care, wean off vent as tolerated. 10/13/2020; patient is on mechanical ventilation, tolerating tube feeding. Patient has labored breathing. Neuro was consulted and recommend MRI. Patient is on Precedex. Rectal tube in place. 10/14/2020; patient is on mechanical ventilation, Precedex. Patient had fever and blood culture ordered. Patient is on IV vancomycin per ID recommendation. Neuro consulted and recommend MRI. Continue to monitor. Prognosis is guarded. 10/15/2020; patient is on mechanical ventilation, Precedex. Patient had fever and blood culture ordered. Patient is on IV vancomycin per ID recommendation. Neuro consulted and recommend MRI. Continue to monitor. Prognosis is guarded. 12: Remains with C.DIFF and Bactermia, Poor prognosis. No purposeful movement. MRI and EEG discussed with Intensvisit, Continue aggressive BP control. 3: Blood pressure better controlled MRI done 10/15 shows mild improvement in edema. We will continue to monitor mother was at bedside yesterday. Nursing documentation trach and PEG discussed with the mother including goals of care. She is still in denial about the gravity of her daughters her condition which is understandable considering her age. Continue aggressive management at this time. Await for bacteremia to clear by ID before placing PICC line. 10/19: Patient for possible PEG and Trach, ID following, repeat cultures remain negative. Poor prognosis 10/20: Pt noted to DVT and SVT in the RUE, Vascular consult and will also obtain Hematology for possible considering changing in Anticoagulation. CONTINUE TO MONITOR H/H and PLT. Family updated by [employer]ens[employer]. Heparin gtt started. Will check CBC and BMP 10/21: Continue supporive care, Diarrhea now resolving, But still with persistent Fever, May need repeat CT/AP per ID, still with profused Encephalopathy 10/22: Continue supportive care, weaning, awaiting repeat Imaging. FOLLOW Fever curve. Enoxparin restarted 10/23: Continue supportive care, wean as tolerated. 10/24; Started on CPAP trial, discussed with pulmonary, still with diarrhea. 10/25: Patients seen and examined, no clinical changes, still with diarrhea. ?meaningful recovery. 10/26: Clinically unchanged, continue CPAP trial, Will discuss with Neurology about re-evaluation, ?Need for repeat CT head. ?PRESS considering initial elevated BP, now stable. 10/27; tracheostomy on vent, weaning trials, vital signs noted, poor prognosis 10/28; unable to wean, tracheostomy on vent. Sepsis. Continue current manageme nt. Consults and recommendations noted and appreciated The high probability of a clinically significant, sudden or life threatening deterioration of the [MULTIPLE ORGAN] system(s) required my full and direct attention, intervention and personal management. The aggregate critical care time was [35] minutes. This time is in addition to time spent performing reported procedures but includes the following: [X] Data Review and interpretation [X] Patient assessment and monitoring of vital signs [X] Documentation [X] Medication orders and management History Interval history: I have seen and examined the patient at the bedside this morning in ICU Patient's chart and medications reviewed Patient tracheostomy on T-piece With 5 L of nasal cannula oxygen saturating 100% Patient noncommunicative vital signs noted Hospitalist Physical - Constitutional Vitals: Temp Pulse Resp BP Pulse Ox 98.3 F 99 H 16 109/74 98 10/29/20 08:00 10/29/20 11:00 10/29/20 11:00 10/29/20 11:00 10/29/20 11:00 General appearance: Present: mild distress, well-nourished, obese, other (Tracheostomy on vent) - EENT Eyes: Present: PERRL, EOM intact - Neck Neck: Present: supple, normal ROM - Cardiovascular Rhythm: regular Heart Sounds: Present: S1 & S2 - Extremities Extremities: no ischemia, No edema - Abdominal General gastrointestinal: soft, non-tender, non-distended, normal bowel sounds - Integumentary Integumentary: Present: clear, warm - Psychiatric Psychiatric: appropriate mood/affect, cooperative - Neurologic Neurologic: CNII-XII intact, moves all extremities HEART Score - HEART Score Age: < 45 Risk factors: 1-2 risk factors - Critical Actions Critical Actions: >7 pts:50-65% risk of adverse cardiac event. Early invasive measures Results - Labs CBC & Chem 7: 10/29/20 07:56 10/29/20 07:56 Labs: Laboratory Last Values WBC 13.6 K/mm3 (4.5-11.0) H 10/29/20 07:56 RBC 3.88 M/mm3 (3.65-5.03) 10/29/20 07:56 Hgb 10.9 gm/dl (10.1-14.3) 10/29/20 07:56 Hgb Comment See scanned result 10/04/20 Unknown Hct 32.4 % (30.3-42.9) 10/29/20 07:56 MCV 84 fl (79-97) 10/29/20 07:56 MCH 28 pg (28-32) 10/29/20 07:56 MCHC 34 % (30-34) 10/29/20 07:56 RDW 17.0 % (13.2-15.2) H 10/29/20 07:56 Plt Count 437 K/mm3 (140-440) 10/29/20 07:56 Lymph % (Auto) 11.2 % (13.4-35.0) L 10/20/20 16:52 [place] % (Auto) 8.1 % (0.0-7.3) H 10/20/20 16:52 Eos % (Auto) 0.8 % (0.0-4.3) 10/20/20 16:52 Baso % (Auto) 1.1 % (0.0-1.8) 10/20/20 16:52 Lymph # (Auto) 2.1 K/mm3 (1.2-5.4) 10/20/20 16:52 [place] # (Auto) 1.5 K/mm3 (0.0-0.8) H 10/20/20 16:52 Eos # (Auto) 0.2 K/mm3 (0.0-0.4) 10/20/20 16:52 Baso # (Auto) 0.2 K/mm3 (0.0-0.1) H 10/20/20 16:52 Add Manual Diff Complete 10/29/20 07:56 Total Counted 100 10/29/20 07:56 Seg Neutrophils % 78.8 % (40.0-70.0) H 10/20/20 16:52 Seg Neuts % (Manual) 80.0 % (40.0-70.0) H 10/29/20 07:56 Band Neutrophils % 2.0 % 10/15/20 05:50 Lymphocytes % (Manual) 15.0 % (13.4-35.0) 10/29/20 07:56 Reactive Lymphs % (Man) 1.0 % 10/02/20 12:18 Monocytes % (Manual) 4.0 % (0.0-7.3) 10/29/20 07:56 Eosinophils % (Manual) 1.0 % (0.0-4.3) 10/29/20 07:56 Myelocytes % 2.0 % 10/02/20 13:05 Metamyelocytes % 1.0 % 10/14/20 04:00 Nucleated RBC % Not Reportable 10/29/20 07:56 Seg Neutrophils # 14.8 K/mm3 (1.8-7.7) H 10/20/20 16:52 Seg Neutrophils # Man 10.9 K/mm3 (1.8-7.7) H 10/29/20 07:56 Band Neutrophils # 0.0 K/mm3 10/29/20 07:56 Lymphocytes # (Manual) 2.0 K/mm3 (1.2-5.4) 10/29/20 07:56 Abs React Lymphs (Man) 0.0 K/mm3 10/29/20 07:56 Monocytes # (Manual) 0.5 K/mm3 (0.0-0.8) 10/29/20 07:56 Eosinophils # (Manual) 0.1 K/mm3 (0.0-0.4) 10/29/20 07:56 Basophils # (Manual) 0.0 K/mm3 (0.0-0.1) 10/29/20 07:56 Metamyelocytes # 0.0 K/mm3 10/29/20 07:56 Myelocytes # 0.0 K/mm3 10/29/20 07:56 Promyelocytes # 0.0 K/mm3 10/29/20 07:56 Blast Cells # 0.0 K/mm3 10/29/20 07:56 WBC Morphology Not Reportable 10/29/20 07:56 Hypersegmented Neuts Not Reportable 10/29/20 07:56 Hyposegmented Neuts Not Reportable 10/29/20 07:56 Hypogranular Neuts Not Reportable 10/29/20 07:56 Smudge Cells Not Reportable 10/29/20 07:56 Toxic Granulation Not Reportable 10/29/20 07:56 Toxic Vacuolation Not Reportable 10/29/20 07:56 Dohle Bodies Not Reportable 10/29/20 07:56 Pelger-Huet Anomaly Not Reportable 10/29/20 07:56 Ester Rods Not Reportable 10/29/20 07:56 Platelet Estimate Consistent w auto 10/29/20 07:56 Clumped Platelets Not Reportable 10/29/20 07:56 Plt Clumps, EDTA Not Reportable 10/29/20 07:56 Large Platelets Few 10/29/20 07:56 Giant Platelets Not Reportable 10/29/20 07:56 Platelet Satelliting Not Reportable 10/29/20 07:56 Plt Morphology Comment Not Reportable 10/29/20 07:56 RBC Morphology Not Reportable 10/29/20 07:56 Dimorphic RBCs Not Reportable 10/29/20 07:56 Polychromasia Rare 10/29/20 07:56 Hypochromasia Few 10/29/20 07:56 Poikilocytosis Not Reportable 10/29/20 07:56 Anisocytosis Not Reportable 10/29/20 07:56 Microcytosis Not Reportable 10/29/20 07:56 Macrocytosis Not Reportable 10/29/20 07:56 Spherocytes Not Reportable 10/29/20 07:56 Pappenheimer Bodies Not Reportable 10/29/20 07:56 Sickle Cells Not Reportable 10/29/20 07:56 Target Cells Few 10/29/20 07:56 Tear Drop Cells Not Reportable 10/29/20 07:56 Ovalocytes Not Reportable 10/29/20 07:56 Stomatocytes Few 10/14/20 04:00 Helmet Cells Not Reportable 10/29/20 07:56 [place] Bodies Not Reportable 10/29/20 07:56 [place] Rings Not Reportable 10/29/20 07:56 [place] Cells Not Reportable 10/29/20 07:56 Bite Cells Not Reportable 10/29/20 07:56 Crenated Cell Not Reportable 10/29/20 07:56 Elliptocytes Not Reportable 10/29/20 07:56 Acanthocytes (Spur) Not Reportable 10/29/20 07:56 Rouleaux Not Reportable 10/29/20 07:56 Hemoglobin C Crystals Not Reportable 10/29/20 07:56 Schistocytes Not Reportable 10/29/20 07:56 Malaria parasites Not Reportable 10/29/20 07:56 Sickle Cell Solubility See scanned result 10/04/20 Unknown Hemoglobin A See scanned result 10/04/20 Unknown Hemoglobin A2 See scanned result 10/04/20 Unknown Hemoglobin A2 Prime See scanned result 10/04/20 Unknown Hemoglobin C See scanned result 10/04/20 Unknown Hemoglobin D See scanned result 10/04/20 Unknown Hemoglobin E See scanned result 10/04/20 Unknown Hgb F Diffential Stain See scanned result 10/04/20 Unknown Hemoglobin F Quant See scanned result 10/04/20 Unknown Hemoglobin G See scanned result 10/04/20 Unknown Hemoglobin S See scanned result 10/04/20 Unknown Hemoglobin [place] See scanned result 10/04/20 Unknown Hemoglobin [place] See scanned result 10/04/20 Unknown Hemoglobin Analilia See scanned result 10/04/20 Unknown Variant Hemoglobin See scanned result 10/04/20 Unknown Abnorm Hgb IEF Confirm See scanned result 10/04/20 Unknown Hemoglobin Interpret See scanned result 10/04/20 Unknown Hemoglobinopathy Note See scanned result 10/04/20 Unknown Sharad Bodies Not Reportable 10/29/20 07:56 Hem Pathologist Commnt No 10/29/20 07:56 PT 13.6 Sec. (12.2-14.9) 10/21/20 13:54 INR 1.06 (0.87-1.13) 10/21/20 13:54 APTT 31.6 Sec. (24.2-36.6) 10/03/20 00:40 Fibrinogen 336 mg/dl (211-480) 10/04/20 10:00 D-Dimer > 04915 ng/mlDDU (0-234) H 10/04/20 10:00 ABG pH 7.459 pH Units (7.350-7.450) H 10/26/20 10:30 POC ABG pCO2 20.7 mmHg (32.0-48.0) L 10/13/20 07:18 ABG pCO2 32.4 mm Hg 10/26/20 10:30 POC ABG pO2 137.9 mmHg (83-108) H 10/13/20 07:18 ABG pO2 112.2 mm Hg (80.0-90.0) H 10/26/20 10:30 POC ABG HCO3 14.8 10/13/20 07:18 ABG HCO3 22.5 mmol/L (20.0-26.0) 10/26/20 10:30 ABG O2 Saturation 98.2 % (95.0-99.0) 10/26/20 10:30 ABG O2 Content 18.5 (0.0-44) 10/26/20 10:30 POC ABG Base Excess -6.9 10/13/20 07:18 ABG Base Excess -0.6 mmol/L (-2.0-3.0) 10/26/20 10:30 ABG Hemoglobin 13.5 gm/dl (12.0-16.0) 10/26/20 10:30 ABG Oxyhemoglobin 98.3 (94-98) H 10/13/20 07:18 ABG Carboxyhemoglobin 1.3 % (0.0-5.0) 10/26/20 10:30 ABG Methemoglobin 0.5 % (0.0-1.5) 10/26/20 10:30 ABG Sodium 135.9 mmol/L (136.0-145.0) L 10/13/20 07:18 ABG Potassium 3.7 mmol/L (3.40-4.50) 10/13/20 07:18 ABG Chloride 111.0 mmol/L (98-107) H 10/13/20 07:18 ABG Glucose 109 mg/dL (65-95) H 10/13/20 07:18 VBG pH 6.949 (7.320-7.420) L* 10/02/20 Unknown Oxyhemoglobin 96.5 % (95.0-99.0) 10/26/20 10:30 Carboxyhemoglobin 0.3 (0.5-1.5) L 10/13/20 07:18 FiO2 25 % 10/26/20 10:30 Sodium 139 mmol/L (137-145) 10/27/20 07:53 Potassium 4.6 mmol/L (3.6-5.0) 10/29/20 07:56 Chloride 104.7 mmol/L (98-107) 10/27/20 07:53 Carbon Dioxide 23 mmol/L (22-30) 10/27/20 07:53 Anion Gap 16 mmol/L 10/27/20 07:53 BUN 20 mg/dL (7-17) H 10/27/20 07:53 Creatinine 0.6 mg/dL (0.6-1.2) 10/27/20 07:53 Estimated GFR > 60 ml/min 10/27/20 07:53 BUN/Creatinine Ratio 33 % 10/27/20 07:53 Glucose 112 mg/dL (65-100) H 10/27/20 07:53 POC Glucose 108 mg/dL (70-105) H 10/29/20 11:37 Lactic Acid 1.90 mmol/L (0.7-2.0) 10/04/20 22:00 Uric Acid 7.5 mg/dL (3.5-7.6) 10/02/20 13:05 Calcium 9.7 mg/dL (8.4-10.2) 10/27/20 07:53 Ionized Calcium 4.4 mg/dL (4.8-5.6) L 10/07/20 21:00 Phosphorus 4.70 mg/dL (2.5-4.5) H 10/29/20 07:56 Magnesium 2.00 mg/dL (1.7-2.3) 10/29/20 07:56 Total Bilirubin 0.40 mg/dL (0.1-1.2) 10/27/20 07:53 AST 83 units/L (5-40) H 10/27/20 07:53 ALT 30 units/L (7-56) 10/27/20 07:53 Alkaline Phosphatase 117 units/L (35-129) 10/27/20 07:53 Lactate Dehydrogenase 769 units/L (91-180) H 10/02/20 13:05 NT-Pro-B Natriuret Pep 2788 pg/mL (0-450) H 10/04/20 10:00 Total Protein 7.2 g/dL (6.3-8.2) 10/27/20 07:53 Albumin 3.8 g/dL (3.9-5) L 10/27/20 07:53 Albumin/Globulin Ratio 1.1 % 10/27/20 07:53 Procalcitonin 0.06 ng/mL (<0.15) 10/27/20 07:53 Arterial Blood Glucose 109 mg/dL (65-95) H 10/13/20 07:18 Arterial Blood Ionized Calcium 4.6 mg/dL (4.6-5.3) 10/13/20 07:18 Urine Color Yellow (Yellow) 10/11/20 13:26 Urine Turbidity Clear (Clear) 10/11/20 13:26 Urine pH 7.0 (5.0-7.0) 10/11/20 13:26 Ur Specific [place] 1.014 (1.003-1.030) 10/11/20 13:26 Urine Protein 100 mg/dl mg/dL (Negative) 10/11/20 13:26 Urine Glucose (UA) Neg mg/dL (Negative) 10/11/20 13:26 Urine Ketones Neg mg/dL (Negative) 10/11/20 13:26 Urine Blood Mod (Negative) 10/11/20 13:26 Urine Nitrite Neg (Negative) 10/11/20 13:26 Urine Bilirubin Neg (Negative) 10/11/20 13:26 Urine Urobilinogen < 2.0 mg/dL (<2.0) 10/11/20 13:26 Ur Leukocyte Esterase Sm (Negative) 10/11/20 13:26 Urine WBC (Auto) 24.0 /HPF (0.0-6.0) H 10/11/20 13:26 Urine RBC (Auto) 59.0 /HPF (0.0-6.0) 10/11/20 13:26 Urine Bacteria (Auto) 1+ /HPF (Negative) 10/11/20 13:26 Urine Mucus Few /HPF 10/11/20 13:26 Vancomycin Trough 12.6 ug/mL (5.0-20.0) 10/21/20 13:54 Random Vancomycin 10.7 ug/mL (0-40.0) 10/16/20 13:09 Phenytoin 5.7 ug/mL (10.0-20.0) L 10/13/20 07:00 C. difficile Tox (PCR) Positive (Negative) 10/16/20 10:22 Coronavirus (PCR) Negative (Negative) 10/08/20 14:15 Blood Type O POSITIVE 10/02/20 12:50 Antibody Screen Negative 10/02/20 12:50 Crossmatch See Detail 10/02/20 12:50 - Diagnostic Impressions Diagnostic Impressions: Echocardiogram 10/03/20 13:42 Transthoracic Echocardiogram Indication: S/P Cardiac Arrest R/O Cardiomyopathy BP: 133/71 Conclusions *Global left ventricular systolic function is normal. *The estimated ejection fraction is 60-65%. *There is trace of mitral regurgitation. *The right 0heart chambers are both slightly dilated. *There is mild tricuspid regurgitation. *There is mild-moderate pulmonary hypertension. *The right ventricular systolic pressure is calculated at 44 mmHg. *The study quality is technically difficult. Findings Procedure Info: The study quality is technically difficult. The study is technically limited due to patient body habitus. The study was technically limited due to the patient's inability to lay in the left lateral decubitus position. Left Ventricle: The left ventricular chamber size is normal. There is no left ventricular hypertrophy. Global left ventricular systolic function is normal. The estimated ejection fraction is 60-65%. Left Atrium: The left atrial chamber size is normal. Right Ventricle: The right ventricle is slightly dilated. Right Atrium: The right atrium is mildly dilated. Aortic Valve: The aortic valve leaflets are mildly thickened. There is no evidence of aortic regurgitation. There is no evidence of aortic stenosis. Mitral Valve: The mitral valve leaflets are mildly thickened. There is trace of mitral regurgitation. There is no evidence of mitral stenosis. Tricuspid Valve: There is mild tricuspid regurgitation. The right ventricular systolic pressure is calculated at 44 mmHg. There is evidence of mild pulmonary hypertension. Pulmonic Valve: There is trace pulmonic regurgitation. Pericardium: There is no pericardial effusion. Aorta: There is no dilatation of the ascending aorta. There is no dilatation of the aortic root. Venous: The inferior vena cava is dilated. Measurements Chambers 2D Name Value Normal Range IVSd (2D) 1 cm (0.6 - 1.1) LVPWd (2D) 1.01 cm (0.6 - 1.1) LVIDd (2D) 4.58 cm (3.7 - 5.6) LVIDs (2D) 3.17 cm (2 - 3.8) LV FS (2D) 30.93 % - EF Teichholz (2D) 58.66 % - Ao root diameter (2D) 2.94 cm (2 - 3.7) Volumes/Mass Name Value Normal Range LA ESV SP 4CH (A/L) 72.82 ml - LA ESV SP 2CH (A/L) 66.86 ml - LA ESV BP (A/L) 74.49 ml - LA ESV SP 4CH (MOD) 71.03 ml - LA ESV SP 2CH (MOD) 64.3 ml - LV EDV SP 4CH (MOD) 98.82 ml - LV ESV SP 4CH (MOD) 24.8 ml - EF SP 4CH (MOD) 74.9 % - LV EDV SP 2CH (MOD) 86.1 ml - LV ESV SP 2CH (MOD) 36.93 ml - EF SP 2CH (MOD) 57.11 % - LV EDV BP 94.4 ml - LV ESV BP 32.66 ml - BP EF (MOD) 65.4 % - Diastolic/Systolic Function Name Value Normal Range MV E-wave Vmax 1.04 m/sec - MV deceleration time 160.46 msec - MV A-wave Vmax 0.92 m/sec - MV E:A ratio 1.14 ratio - Aortic Valve Name Value Normal Range AV Vmax 2.12 m/sec - AV VTI 22.37 cm - AV peak gradient 17.95 mmHg - AV mean gradient 7.29 mmHg - LVOT diameter 2.01 cm - LVOT Vmax 1.8 m/sec - LVOT VTI 27.17 cm - LVOT peak gradient 12.91 mmHg - LVOT mean gradient 6.83 mmHg - SV LVOT 86.42 ml - ANITA (continuity Vmax) 2.7 cm2 - ANITA (continuity VTI) 3.86 cm2 - Ascending Ao 3.18 cm - Tricuspid Valve Name Value Normal Range TV E-wave Vmax 0.88 m/sec - TR Vmax 3.01 m/sec - TR peak gradient 36.27 mmHg - RAP 8 mmHg - RVSP 44 mmHg - IVC diameter 2.65 cm (1.2 - 2.3) Pulmonic Valve/Qp:Qs Name Value Normal Range PV Vmax 1.22 m/sec - PV peak gradient 5.91 mmHg - RVOT Vmax 0.87 m/sec - RVOT VTI 13.32 cm - RVOT peak gradient 3 mmHg - PV acceleration time 110.37 msec - [place]/IV: Voiding Method Indwelling Catheter IV Catheter Type [Right Foot] INT / Saline Lock IV Catheter Type [Left Forearm Peripheral IV ] IV Catheter Type [Left Wrist] INT / Saline Lock IV Catheter Type [Right Hand] INT / Saline Lock IV Catheter Type [Right INT / Saline Lock Antecubital] IV Catheter Type [Right Upper INT / Saline Lock arm] IV Catheter Type [Left Triple Lumen Cath Internal Jugular] IV Catheter Type [Left Hand] Peripheral IV IV Catheter Type [Left Peripheral IV Antecubital] Active Medications - Current Medications Current Medications: Generic Name Dose Route Start Last Admin Trade Name Freq PRN Reason Stop Dose Admin Acetaminophen 650 mg 10/05/20 16:34 10/16/20 00:13 Acetaminophen 325 Mg/10.15 Ml Oral Liqd Unit Dose FEEDTUBE 650 mg Q6H PRN Administration Non Cardiac Pain or Temp>100.5 Lipase/Protease/Amylase 1 each 10/05/20 11:09 Lipase 10,500/Protease 25,000/Amylase 43,750 (Units) Dr Barakat FEEDTUBE PRN PRN For Clogged Feeding Tube Enoxaparin Sodium 40 mg 10/22/20 10:00 10/29/20 10:05 Enoxaparin 40 Mg/0.4 Ml Inj SUB-Q 40 mg DAILY ERINN Administration Protocol Famotidine 20 mg 10/07/20 10:00 10/29/20 10:05 Famotidine 20 Mg Tab PO 20 mg BID ERINN Administration Furosemide 40 mg 10/17/20 10:00 10/29/20 10:05 Furosemide 40 Mg Tab PO 40 mg QDAY ERINN Administration Glycopyrrolate 1 mg 10/20/20 10:00 10/29/20 10:05 Glycopyrrolate 1 Mg Tab PO 1 mg BID ERINN Administration Hydralazine HCl 20 mg 10/07/20 11:49 10/17/20 07:20 Hydralazine 20 Mg/1 Ml Inj IV 20 mg Q6H PRN Administration SBP >170 Hydralazine HCl 50 mg 10/17/20 09:00 10/29/20 06:23 Hydralazine 25 Mg Tab PO Not Given Q8HR ERINN Hydrophilic Ointment 1 applic 10/04/20 06:55 Lip Therapy Vaseline TP Q2HR PRN Dry Lips Dextrose 1,000 mls @ 50 mls/hr 10/13/20 11:00 10/28/20 18:38 D10w IV 50 mls/hr DIRECT ERINN Administration Labetalol HCl 300 mg 10/17/20 09:00 10/29/20 08:41 Labetalol 100 Mg Tab PO 300 mg TID ERINN Administration Multi-Ingred Cream/Lotion/Oil/Oint 1 applic 10/04/20 06:55 Mineral Oil/Petrolatum, White Ophth Oint 3.5 Gm OU Q4HR PRN Dry Eye(s) Simple Syrup 15 ml 10/05/20 11:09 Simple Syrup 15 Ml FEEDTUBE PRN PRN Hypoglycemia Simple Syrup 30 ml 10/05/20 11:09 Simple Syrup 15 Ml FEEDTUBE PRN PRN Hypoglycemia Sodium Bicarbonate 325 mg 10/05/20 11:09 Sodium Bicarbonate 325 Mg Tab FEEDTUBE PRN PRN For Clogged Feeding Tube Sodium Bicarbonate 1,300 mg 10/13/20 14:00 10/29/20 08:41 Sodium Bicarbonate 650 Mg Tab PO 1,300 mg TID ERINN Administration Topiramate 50 mg 10/05/20 11:00 10/29/20 10:05 Topiramate Tab 25 Mg Tab PO 50 mg Q12HR ERINN Administration Nutrition/Malnutrition Assess - Dietary Evaluation Nutrition/Malnutrition Findings: Nutrition Notes Start: 10/04/20 11:13 Freq: Status: Active Protocol: Document 10/28/20 13:12 CW (Rec: 10/28/20 13:17 CW [email or web address]) Co-Sign 10/28/20 13:12 LP Nutrition Notes Initial or Follow up Reassessment Current Diagnosis Acute Kidney Injury, Respiratory Failure Other Pertinent Diagnosis Cardiac arrest, s/p c-sectuion and supracervial hysterectomy Current Diet Promote at 75ml/hr Labs/Tests 10/27 lasix 10/28 D10W at 75 ml/hr Pertinent Medications BG 112 Height 5 ft 8 in Weight 109.8 kg [place] Body Weight (kg) 63.63 BMI 36.8 Weight change and time frame Wt change noted Weight Status Morbidly Obese Subjective/Other Information FU for TF tolerance. Discussed with MD about pt BG and plans to decreased D10w rate to 50ml/hr. Pt remains on the vent. Percent of energy/protein needs met: 100%/74% Burn Absent Trauma Absent GI Symptoms None Food Allergy Yes Current % PO Negligible Minimum of two criteria No Fluid Accumulation Mild (non-severe) #1 Nutrition Diagnosis Inadequate oral intake Diagnosis Progress(for reassessment Continues documentation) Is patient on ventilator? Yes Is Patient Ambulatory and/or Out of Bed No REE-([place]-St. Jeor-confined to bed) 2229.552 Kcal/Kg value to use for calculation 16 Approximate Energy Requirements Using 1757 kcal/Kg Calculation Used for Recommendations Kcal/kg Additional Notes Protein needs are up to 159g ( up to 2.5g/kg) Fluid needs are 1ml/kcal Nutrition Intervention Change Diet Order: Continue TF Nutrition Support: Promote at 75 ml/hr. Flush 50ml q4h. Kcal 1,800 Protein (gm) 112 Fluid (mL) 1,510 Goal #1 TF tolerance Goal #2 Meet at least 75% of energy and protein needs Anticipated Discharge Needs: Unable to determine at this time Follow-Up By: 10/30/20 Additional Comments FU for TF tolerance, BG labs
[2020-10-29] MEDS: DEXTROSE 10% IN WATER 1,000 ML IV SCH (13:30)
[2020-10-30] MEDS: hydrALAZINE 25 MG TAB PO SCH ×3 (05:34→21:50)
--- NOTE | 2020-10-30 08:54 | Progress Note ---
Assessment and Plan No clinical improvement in neurological status - Patient Problems (1) Acute respiratory failure with hypoxia Current Visit: Yes Status: Acute (2) Cardiac arrest Current Visit: Yes Status: Acute (3) DIC (disseminated intravascular coagulation) Current Visit: Yes Status: Acute (4) Encephalopathy Current Visit: Yes Status: Acute Subjective - Subjective Date of service: 10/30/20 Principal diagnosis: Eclampsia/HELLP Syndrome, ADOLPH, DIC; s/p , s/p supracervical hyst Interval history: 30y/o POD #27 s/p supracervical hysterectomy for eclampsia and DIC. Patient remains unresponsive. Patient has been removed from the ventilator and remains stable. Objective - Vital Signs Latest vital signs: Vital Signs Temp Pulse Pulse Resp BP Pulse Ox Pulse Ox 10/30/20 08:15 100 10/30/20 06:00 109 H 22 126/60 97 10/30/20 05:34 101 H 119/67 10/30/20 05:29 99 10/30/20 05:00 105 H 28 H 119/67 96 10/30/20 04:00 98.4 F 93 H 95 H 21 119/73 99 10/30/20 03:00 93 H 24 106/77 99 10/30/20 02:00 107 H 13 113/68 96 10/30/20 01:00 82 15 101/54 98 10/30/20 00:00 107 H 88 28 H 110/71 96 10/29/20 23:40 98.1 F 10/29/20 23:32 91 H 20 111/71 100 10/29/20 23:00 107 H 30 H 111/71 97 10/29/20 22:00 98 H 25 H 125/74 98 10/29/20 21:42 96 H 117/70 10/29/20 21:00 104 H 21 104/56 96 10/29/20 20:35 109 H 125/85 10/29/20 20:00 83 83 23 112/67 100 10/29/20 19:59 100 10/29/20 19:57 98.4 F 10/29/20 19:00 104 H 13 120/79 96 10/29/20 18:00 92 H 22 105/67 98 10/29/20 17:00 99/64 99 10/29/20 16:50 100 10/29/20 16:00 98.9 F 98 H 86 16 114/67 97 10/29/20 15:00 83 23 116/40 99 10/29/20 14:00 95 H 22 113/62 99 10/29/20 13:25 96 H 108/66 10/29/20 13:09 100 10/29/20 13:01 85 20 108/66 100 10/29/20 13:00 88 19 108/66 100 10/29/20 12:00 98.5 F 110 H 108 H 16 109/72 99 10/29/20 11:00 99 H 16 109/74 98 10/29/20 10:00 97 H 16 120/69 98 10/29/20 09:00 109 H 14 111/70 98 Intake and Output 10/29/20 10/30/20 10/30/20 22:59 06:59 14:59 Intake Total 700 750 Output Total 500 100 Balance 200 650 Intake: Intake, Free Water 100 150 Tube Feeding 600 600 Output: Urine 500 100 Indwelling Catheter 500 100 Other: Total, Intake Amount 75 75 Total, Output Amount 100 100 Voiding Method Indwelling Catheter Indwelling Catheter # Voids Indwelling Catheter 1 Weight 111.2 kg - Exam Incision: Present: normal, dry - Labs Labs: Abnormal lab results 10/29/20 10/29/20 10/29/20 Range/Units 07:56 07:56 11:37 WBC 13.6 H (4.5-11.0) K/mm3 RDW 17.0 H (13.2-15.2) % Seg Neuts % (Manual) 80.0 H (40.0-70.0) % Seg Neutrophils # Man 10.9 H (1.8-7.7) K/mm3 POC Glucose 108 H (70-105) mg/dL Phosphorus 4.70 H (2.5-4.5) mg/dL 10/29/20 Range/Units 13:32 WBC (4.5-11.0) K/mm3 RDW (13.2-15.2) % Seg Neuts % (Manual) (40.0-70.0) % Seg Neutrophils # Man (1.8-7.7) K/mm3 POC Glucose 108 H (70-105) mg/dL Phosphorus (2.5-4.5) mg/dL
--- NOTE | 2020-10-30 09:04 | Progress Note ---
Assessment and Plan 30 y/o female with Eclampsia, s/p emergent section with DIC, acute respiratory failure and worsening renal function. 10/30/20: Continue step down monitoring for now. If does well the next 24-36 hours, then will consider floor transfer. Really needs to continue PT with PROM. Will speak with CM about options for here now that critical needs are becoming minimal. 10/29/20: Off vent now for 24 hours. Tolerating T-Piece. Will transition to step down for a few days. If does well there, consider transition to floor. Continue PT. 10/28/20: Daily T-piece trials for as long as tolerated. Attempt to push further daily. OT does not do passive range of motion. Per PT note will do passive range of motion with patient. Guarded prognosis. Hoping to wean off vent and transition to floor. 10/27/20: Continue daily T-piece trials for as long as tolerated. Ok with resting on either PSV or full rate if needed at night but need to strengthen her respiratory muscles. PT/OT if possible. Will transition to step down prior to going to floor to insure stability. 10/26/20: Will obtain ABG today. If good, will attempt on T-piece later. Continue PT/OT. Will speak with CM about possibility of LTACH or nursing facility that can take trached patients. 10/23/20: Daily PSV trials for as long as patient will tolerate. Needs PT/OT consult for passive range of motion. 10/22/20: Will start prolonged PSV trials. Attempt to wean from vent and then transition to floor to see if mental status improves. Continue tube feeds. 10/21/20: Trach and peg placed. No sedation. Restart Lovenox for Upper Ext DVT. Restart feeds when surgery states ok to use PEG. C. Diff treatment per ID. Guarded prognosis. Will be a superintendent terminal wean. Hopeful to wean off vent at least and then can transfer to floor. 10/20/20: NPO after midnight. DVT study just read from 10/14 on yesterday showing upper ext DVT. Started on Lovenox but need to hold therapy until after surgery. could be source of fevers. No sedation. 10/19/20: Stable BP. Will meet/talk with family at noon over the phone with myself and case management. Need to discuss goals of care and what next steps would be. Patient would need trach and peg and transfer to LTACH if family ok with this. Follow up speciation of GNR's in blood. Has been on Cefepime. Continues therapy for C. Diff. Guarded prognosis. Continue daily PSV trials but not ready for extubation secondary to mental state. 10/18/20: Blood pressure is much better with the addition of meds started on yesterday. Need to have family meeting jesica in regards to goals of care. Continue Daily PSV trials but not ready for extubation. Continue therapy for C. Diff per ID. 10/17/20: CT scan was of no help in regards to fevers. C. Diff is positive and BP now is more uncontrolled despite increasing labetalol. Today will increase to 300 TID. Added TID Hydralazine and added PO lasix given her mild pulmonary htn seen on echo. Spoke with mother over the phone and she requests to come see the patient. Given current circumstances, will allow her to come briefly today and then will speak with her at the bedside. No neurology is available at the time and suspect these will be the majority of her questions. Tolerated PSV briefly yesterday and will do again today but not for extended periods as given her mental state she is not a candidate for extubation. I will also ask the mother about superintendent terminal care (trach and peg) when she comes today. Overall prognosis is guarded to poor. If oral meds cannot regulate blood pressure, may need Cardene drip. Continue therapy for C. Diff per ID. 10/16/20: Needs a different consent for CT of abdomen and pelvis. I have signed the one in the chart. The nurse who obtained the first consent did obtain consent for contrast, it just wasn't listed on the that consent. Await neurology input on EEG vs MRI findings. Patient has now been intubated 14 days. Need to have family meeting to discuss goals of care but I suspect family will want to hear from Neurology as well. Tolerating PSV trials but will only do briefly as patient is not a candidate for extubation today. Will increase labetalol to 200 TID based on MRI report. Overall prognosis is guarded to poor. Subjective Date of service: 10/30/20 Principal diagnosis: Eclampsia/HELLP Syndrome, ADOLPH, DIC; s/p , s/p miller pracervical hyst Interval history: Transitioned to the step down unit on yesterday. So far no pulmonary issues and tolertating T-piece. Still unresponisve but eyes open Objective Vital Signs - 12hr 10/29/20 10/29/20 10/29/20 21:42 22:00 23:00 Temperature Pulse Rate 96 H 98 H 107 H Pulse Rate [ From Monitor] Respiratory 25 H 30 H Rate Blood Pressure 117/70 125/74 111/71 O2 Sat by Pulse 98 97 Oximetry 10/29/20 10/29/20 10/30/20 23:32 23:40 00:00 Temperature 98.1 F Pulse Rate 91 H 107 H Pulse Rate [ 88 From Monitor] Respiratory 20 28 H Rate Blood Pressure 111/71 110/71 O2 Sat by Pulse 100 96 Oximetry 10/30/20 10/30/20 10/30/20 01:00 02:00 03:00 Temperature Pulse Rate 82 107 H 93 H Pulse Rate [ From Monitor] Respiratory 15 13 24 Rate Blood Pressure 101/54 113/68 106/77 O2 Sat by Pulse 98 96 99 Oximetry 10/30/20 10/30/20 10/30/20 04:00 05:00 05:29 Temperature 98.4 F Pulse Rate 93 H 105 H Pulse Rate [ 95 H From Monitor] Respiratory 21 28 H Rate Blood Pressure 119/73 119/67 O2 Sat by Pulse 99 96 99 Oximetry 10/30/20 10/30/20 10/30/20 05:34 06:00 08:15 Temperature Pulse Rate 101 H 109 H Pulse Rate [ From Monitor] Respiratory 22 Rate Blood Pressure 119/67 126/60 O2 Sat by Pulse 97 100 Oximetry Constitutional: comatose, other (critically ill on ventilator trach) Eyes: non-icteric ENT: oropharynx moist, other (orally intubated and not sedated) Neck: other (large in cirumference) Effort: normal Ascultation: Bilateral: clear, diminished breath sounds, other (coarse BS bilaterally w/ mild faint wheezes) Percussion: Bilateral: not dull Cardiovascular: regular rate and rhythm, other (no mrg) Gastrointestinal: normoactive bowel sounds, soft, other (post surgical changes with drain on the left side) Extremities: no cyanosis, pink and warm, anasarca Neurologic: other (unresponsive, not following commands, not tracking) Psychiatric: other (unable to assess) CBC and BMP: 10/29/20 07:56 10/29/20 07:56 ABG, PT/INR, D-dimer: ABG ABG pH 7.459 pH Units (7.350-7.450) H 10/26/20 10:30 POC ABG pCO2 20.7 mmHg (32.0-48.0) L 10/13/20 07:18 ABG pCO2 32.4 mm Hg 10/26/20 10:30 POC ABG pO2 137.9 mmHg (83-108) H 10/13/20 07:18 ABG pO2 112.2 mm Hg (80.0-90.0) H 10/26/20 10:30 POC ABG HCO3 14.8 10/13/20 07:18 ABG O2 Saturation 98.2 % (95.0-99.0) 10/26/20 10:30 PT/INR, D-dimer PT 13.6 Sec. (12.2-14.9) 10/21/20 13:54 INR 1.06 (0.87-1.13) 10/21/20 13:54 D-Dimer > 25830 ng/mlDDU (0-234) H 10/04/20 10:00 Abnormal lab findings: Abnormal Labs 10/02/20 10/02/20 10/02/20 12:03 12:18 12:18 WBC 14.9 H RBC Hgb 9.1 L Hct MCV MCH 22 L MCHC 28 L RDW 17.6 H Plt Count 102 L Lymph % (Auto) [place] % (Auto) Lymph # (Auto) [place] # (Auto) Baso # (Auto) Seg Neutrophils % Seg Neuts % (Manual) 36.0 L Lymphocytes % (Manual) 49.0 H Monocytes % (Manual) Nucleated RBC % 6.0 H Seg Neutrophils # Seg Neutrophils # Man Lymphocytes # (Manual) 7.3 H Monocytes # (Manual) PT INR APTT Fibrinogen D-Dimer ABG pH POC ABG pCO2 POC ABG pO2 ABG pO2 ABG HCO3 ABG Base Excess ABG Hemoglobin ABG Oxyhemoglobin ABG Sodium ABG Potassium ABG Chloride ABG Glucose VBG pH Oxyhemoglobin Carboxyhemoglobin Sodium 134 L Potassium Chloride Carbon Dioxide 12 L BUN 6 L Creatinine Glucose 390 H POC Glucose 451 H Lactic Acid Calcium Ionized Calcium Phosphorus Magnesium AST 135 H ALT 85 H Alkaline Phosphatase 172 H Lactate Dehydrogenase 641 H NT-Pro-B Natriuret Pep Total Protein 5.4 L Albumin 2.3 L Arterial Blood Glucose Arterial Blood Ionized Calcium Urine WBC (Auto) Vancomycin Trough Phenytoin Crossmatch 10/02/20 10/02/20 10/02/20 12:50 13:05 13:05 WBC 38.6 H RBC Hgb 8.9 L Hct 29.0 L MCV 73 L MCH 22 L MCHC RDW 17.2 H Plt Count Lymph % (Auto) [place] % (Auto) Lymph # (Auto) [place] # (Auto) Baso # (Auto) Seg Neutrophils % Seg Neuts % (Manual) Lymphocytes % (Manual) Monocytes % (Manual) Nucleated RBC % 2.0 H Seg Neutrophils # Seg Neutrophils # Man 20.1 H Lymphocytes # (Manual) 10.4 H Monocytes # (Manual) 2.3 H PT INR APTT Fibrinogen D-Dimer ABG pH POC ABG pCO2 POC ABG pO2 ABG pO2 ABG HCO3 ABG Base Excess ABG Hemoglobin ABG Oxyhemoglobin ABG Sodium ABG Potassium ABG Chloride ABG Glucose VBG pH Oxyhemoglobin Carboxyhemoglobin Sodium Potassium Chloride Carbon Dioxide BUN Creatinine Glucose POC Glucose Lactic Acid Calcium Ionized Calcium Phosphorus Magnesium AST 184 H ALT 113 H Alkaline Phosphatase Lactate Dehydrogenase 769 H NT-Pro-B Natriuret Pep Total Protein Albumin Arterial Blood Glucose Arterial Blood Ionized Calcium Urine WBC (Auto) Vancomycin Trough Phenytoin Crossmatch See Detail 10/02/20 10/02/20 10/02/20 16:25 16:35 16:35 WBC RBC Hgb Hct MCV MCH MCHC RDW Plt Count Lymph % (Auto) [place] % (Auto) Lymph # (Auto) [place] # (Auto) Baso # (Auto) Seg Neutrophils % Seg Neuts % (Manual) Lymphocytes % (Manual) Monocytes % (Manual) Nucleated RBC % Seg Neutrophils # Seg Neutrophils # Man Lymphocytes # (Manual) Monocytes # (Manual) PT INR APTT Fibrinogen D-Dimer ABG pH 7.031 L* POC ABG pCO2 POC ABG pO2 ABG pO2 116.8 H ABG HCO3 12.7 L ABG Base Excess -16.9 L ABG Hemoglobin 7.8 L ABG Oxyhemoglobin ABG Sodium ABG Potassium ABG Chloride ABG Glucose VBG pH Oxyhemoglobin 94.9 L Carboxyhemoglobin Sodium Potassium Chloride Carbon Dioxide BUN Creatinine Glucose 403 H POC Glucose Lactic Acid 11.40 H* Calcium 6.3 L D Ionized Calcium Phosphorus Magnesium AST 70 H ALT Alkaline Phosphatase Lactate Dehydrogenase NT-Pro-B Natriuret Pep Total Protein 1.9 L D Albumin 1.2 L Arterial Blood Glucose Arterial Blood Ionized Calcium Urine WBC (Auto) Vancomycin Trough Phenytoin Crossmatch 10/02/20 10/02/20 10/02/20 18:18 18:18 22:30 WBC 11.5 H RBC 2.06 L Hgb 5.5 L* D Hct 17.3 L* D MCV MCH 27 L MCHC RDW 19.5 H Plt Count 60 L Lymph % (Auto) [place] % (Auto) Lymph # (Auto) [place] # (Auto) Baso # (Auto) Seg Neutrophils % Seg Neuts % (Manual) Lymphocytes % (Manual) 8.0 L Monocytes % (Manual) 8.0 H Nucleated RBC % 8.0 H Seg Neutrophils # Seg Neutrophils # Man Lymphocytes # (Manual) 0.9 L Monocytes # (Manual) 0.9 H PT 37.1 H INR 3.71 H APTT 135.8 H* Fibrinogen D-Dimer ABG pH 7.067 L* POC ABG pCO2 POC ABG pO2 ABG pO2 183.0 H ABG HCO3 14.1 L ABG Base Excess -15.1 L ABG Hemoglobin 7.7 L ABG Oxyhemoglobin ABG Sodium ABG Potassium ABG Chloride ABG Glucose VBG pH Oxyhemoglobin Carboxyhemoglobin Sodium Potassium Chloride Carbon Dioxide BUN Creatinine Glucose POC Glucose Lactic Acid Calcium Ionized Calcium Phosphorus Magnesium AST ALT Alkaline Phosphatase Lactate Dehydrogenase NT-Pro-B Natriuret Pep Total Protein Albumin Arterial Blood Glucose Arterial Blood Ionized Calcium Urine WBC (Auto) Vancomycin Trough Phenytoin Crossmatch 10/02/20 10/02/20 10/03/20 Unknown Unknown 00:01 WBC RBC Hgb Hct MCV MCH MCHC RDW Plt Count Lymph % (Auto) [place] % (Auto) Lymph # (Auto) [place] # (Auto) Baso # (Auto) Seg Neutrophils % Seg Neuts % (Manual) Lymphocytes % (Manual) Monocytes % (Manual) Nucleated RBC % Seg Neutrophils # Seg Neutrophils # Man Lymphocytes # (Manual) Monocytes # (Manual) PT 61.1 H INR 6.92 H* APTT 158.7 H* Fibrinogen < 60 L* D-Dimer > 79267 H ABG pH POC ABG pCO2 POC ABG pO2 ABG pO2 ABG HCO3 ABG Base Excess ABG Hemoglobin ABG Oxyhemoglobin ABG Sodium ABG Potassium ABG Chloride ABG Glucose VBG pH 6.949 L* Oxyhemoglobin Carboxyhemoglobin Sodium Potassium Chloride Carbon Dioxide BUN Creatinine Glucose POC Glucose 196 H Lactic Acid Calcium Ionized Calcium Phosphorus Magnesium AST ALT Alkaline Phosphatase Lactate Dehydrogenase NT-Pro-B Natriuret Pep Total Protein Albumin Arterial Blood Glucose Arterial Blood Ionized Calcium Urine WBC (Auto) Vancomycin Trough Phenytoin Crossmatch 10/03/20 10/03/20 10/03/20 00:40 00:40 00:40 WBC RBC Hgb Hct MCV MCH MCHC RDW Plt Count Lymph % (Auto) [place] % (Auto) Lymph # (Auto) [place] # (Auto) Baso # (Auto) Seg Neutrophils % Seg Neuts % (Manual) Lymphocytes % (Manual) Monocytes % (Manual) Nucleated RBC % Seg Neutrophils # Seg Neutrophils # Man Lymphocytes # (Manual) Monocytes # (Manual) PT 15.1 H INR 1.21 H APTT Fibrinogen D-Dimer ABG pH POC ABG pCO2 POC ABG pO2 ABG pO2 ABG HCO3 ABG Base Excess ABG Hemoglobin ABG Oxyhemoglobin ABG Sodium ABG Potassium ABG Chloride ABG Glucose VBG pH Oxyhemoglobin Carboxyhemoglobin Sodium 136 L Potassium Chloride Carbon Dioxide BUN Creatinine 1.6 H D Glucose 106 H POC Glucose Lactic Acid 5.60 H* Calcium 6.5 L Ionized Calcium Phosphorus Magnesium AST 232 H ALT 104 H Alkaline Phosphatase Lactate Dehydrogenase NT-Pro-B Natriuret Pep Total Protein 3.9 L D Albumin 2.4 L Arterial Blood Glucose Arterial Blood Ionized Calcium Urine WBC (Auto) Vancomycin Trough Phenytoin Crossmatch 10/03/20 10/03/20 10/03/20 02:08 02:08 02:08 WBC 17.6 H RBC 3.27 L Hgb 9.9 L D Hct 29.9 L D MCV MCH MCHC RDW 16.5 H Plt Count 75 L Lymph % (Auto) [place] % (Auto) Lymph # (Auto) [place] # (Auto) Baso # (Auto) Seg Neutrophils % Seg Neuts % (Manual) 76.0 H Lymphocytes % (Manual) Monocytes % (Manual) Nucleated RBC % 8.0 H Seg Neutrophils # Seg Neutrophils # Man 13.4 H Lymphocytes # (Manual) Monocytes # (Manual) PT INR APTT Fibrinogen D-Dimer ABG pH POC ABG pCO2 POC ABG pO2 ABG pO2 ABG HCO3 ABG Base Excess ABG Hemoglobin ABG Oxyhemoglobin ABG Sodium ABG Potassium ABG Chloride ABG Glucose VBG pH Oxyhemoglobin Carboxyhemoglobin Sodium Potassium Chloride Carbon Dioxide 19 L BUN Creatinine 1.4 H Glucose 306 H POC Glucose Lactic Acid 10.50 H* Calcium 6.4 L Ionized Calcium Phosphorus Magnesium AST ALT Alkaline Phosphatase Lactate Dehydrogenase NT-Pro-B Natriuret Pep Total Protein Albumin Arterial Blood Glucose Arterial Blood Ionized Calcium Urine WBC (Auto) Vancomycin Trough Phenytoin Crossmatch 10/03/20 10/03/20 10/03/20 02:42 03:59 05:31 WBC RBC Hgb Hct MCV MCH MCHC RDW Plt Count Lymph % (Auto) [place] % (Auto) Lymph # (Auto) [place] # (Auto) Baso # (Auto) Seg Neutrophils % Seg Neuts % (Manual) Lymphocytes % (Manual) Monocytes % (Manual) Nucleated RBC % Seg Neutrophils # Seg Neutrophils # Man Lymphocytes # (Manual) Monocytes # (Manual) PT INR APTT Fibrinogen D-Dimer ABG pH 7.144 L POC ABG pCO2 54.4 H POC ABG pO2 ABG pO2 ABG HCO3 ABG Base Excess ABG Hemoglobin 10.0 L ABG Oxyhemoglobin ABG Sodium ABG Potassium ABG Chloride 108.0 H ABG Glucose 306 H VBG pH Oxyhemoglobin Carboxyhemoglobin Sodium Potassium Chloride Carbon Dioxide BUN Creatinine Glucose POC Glucose 209 H Lactic Acid 9.20 H* Calcium Ionized Calcium Phosphorus Magnesium AST ALT Alkaline Phosphatase Lactate Dehydrogenase NT-Pro-B Natriuret Pep Total Protein Albumin Arterial Blood Glucose 306 H Arterial Blood Ionized Calcium 3.7 L Urine WBC (Auto) Vancomycin Trough Phenytoin Crossmatch 10/03/20 10/03/20 10/03/20 09:00 09:00 09:00 WBC 27.4 H RBC 2.84 L Hgb 8.5 L Hct 25.1 L MCV MCH MCHC RDW 16.1 H Plt Count 72 L Lymph % (Auto) [place] % (Auto) Lymph # (Auto) [place] # (Auto) Baso # (Auto) Seg Neutrophils % Seg Neuts % (Manual) Lymphocytes % (Manual) 11.0 L Monocytes % (Manual) Nucleated RBC % 3.0 H Seg Neutrophils # Seg Neutrophils # Man 18.4 H Lymphocytes # (Manual) Monocytes # (Manual) 1.9 H PT INR APTT Fibrinogen D-Dimer ABG pH POC ABG pCO2 POC ABG pO2 ABG pO2 ABG HCO3 ABG Base Excess ABG Hemoglobin ABG Oxyhemoglobin ABG Sodium ABG Potassium ABG Chloride ABG Glucose VBG pH Oxyhemoglobin Carboxyhemoglobin Sodium Potassium Chloride Carbon Dioxide BUN Creatinine 1.7 H Glucose 216 H POC Glucose Lactic Acid 9.20 H* Calcium 6.3 L Ionized Calcium Phosphorus Magnesium AST 331 H ALT 171 H Alkaline Phosphatase Lactate Dehydrogenase NT-Pro-B Natriuret Pep Total Protein 3.7 L Albumin 1.9 L Arterial Blood Glucose Arterial Blood Ionized Calcium Urine WBC (Auto) Vancomycin Trough Phenytoin Crossmatch 10/03/20 10/03/20 10/03/20 11:20 11:46 11:50 WBC 28.7 H RBC 2.67 L Hgb 8.0 L Hct 23.7 L MCV MCH MCHC RDW 16.6 H Plt Count 76 L Lymph % (Auto) [place] % (Auto) Lymph # (Auto) [place] # (Auto) Baso # (Auto) Seg Neutrophils % Seg Neuts % (Manual) Lymphocytes % (Manual) Monocytes % (Manual) Nucleated RBC % Seg Neutrophils # Seg Neutrophils # Man Lymphocytes # (Manual) Monocytes # (Manual) PT INR APTT Fibrinogen D-Dimer ABG pH POC ABG pCO2 POC ABG pO2 ABG pO2 ABG HCO3 ABG Base Excess ABG Hemoglobin ABG Oxyhemoglobin ABG Sodium ABG Potassium ABG Chloride ABG Glucose VBG pH Oxyhemoglobin Carboxyhemoglobin Sodium Potassium Chloride Carbon Dioxide BUN Creatinine Glucose POC Glucose 125 H Lactic Acid 8.00 H* Calcium Ionized Calcium Phosphorus Magnesium AST ALT Alkaline Phosphatase Lactate Dehydrogenase NT-Pro-B Natriuret Pep Total Protein Albumin Arterial Blood Glucose Arterial Blood Ionized Calcium Urine WBC (Auto) Vancomycin Trough Phenytoin Crossmatch 10/03/20 10/04/20 10/04/20 11:50 00:40 00:40 WBC RBC Hgb 6.8 L Hct 19.4 L* MCV MCH MCHC RDW Plt Count 49 L Lymph % (Auto) [place] % (Auto) Lymph # (Auto) [place] # (Auto) Baso # (Auto) Seg Neutrophils % Seg Neuts % (Manual) Lymphocytes % (Manual) Monocytes % (Manual) Nucleated RBC % Seg Neutrophils # Seg Neutrophils # Man Lymphocytes # (Manual) Monocytes # (Manual) PT INR APTT Fibrinogen D-Dimer ABG pH 7.244 L POC ABG pCO2 POC ABG pO2 ABG pO2 ABG HCO3 ABG Base Excess -4.5 L ABG Hemoglobin 7.3 L ABG Oxyhemoglobin ABG Sodium ABG Potassium ABG Chloride ABG Glucose VBG pH Oxyhemoglobin Carboxyhemoglobin Sodium Potassium Chloride Carbon Dioxide BUN Creatinine Glucose POC Glucose Lactic Acid Calcium Ionized Calcium Phosphorus Magnesium AST ALT Alkaline Phosphatase Lactate Dehydrogenase NT-Pro-B Natriuret Pep Total Protein Albumin Arterial Blood Glucose Arterial Blood Ionized Calcium Urine WBC (Auto) Vancomycin Trough Phenytoin Crossmatch 10/04/20 10/04/20 10/04/20 03:53 10:00 10:00 WBC 14.6 H RBC 2.57 L Hgb 7.6 L Hct 22.5 L MCV MCH MCHC RDW 15.8 H Plt Count 38 L Lymph % (Auto) 7.7 L [place] % (Auto) Lymph # (Auto) 1.1 L [place] # (Auto) 0.9 H Baso # (Auto) Seg Neutrophils % 85.6 H Seg Neuts % (Manual) Lymphocytes % (Manual) Monocytes % (Manual) Nucleated RBC % Seg Neutrophils # 12.5 H Seg Neutrophils # Man Lymphocytes # (Manual) Monocytes # (Manual) PT INR APTT Fibrinogen D-Dimer ABG pH POC ABG pCO2 POC ABG pO2 110.6 H ABG pO2 ABG HCO3 ABG Base Excess ABG Hemoglobin 6.7 L ABG Oxyhemoglobin ABG Sodium 132.0 L ABG Potassium ABG Chloride ABG Glucose 111 H VBG pH Oxyhemoglobin Carboxyhemoglobin Sodium 134 L D Potassium Chloride 97.6 L Carbon Dioxide BUN Creatinine 1.7 H Glucose POC Glucose Lactic Acid Calcium 6.3 L Ionized Calcium Phosphorus Magnesium AST 203 H ALT 81 H Alkaline Phosphatase Lactate Dehydrogenase NT-Pro-B Natriuret Pep Total Protein 3.9 L Albumin 2.3 L Arterial Blood Glucose 111 H Arterial Blood Ionized Calcium 3.5 L Urine WBC (Auto) Vancomycin Trough Phenytoin Crossmatch 10/04/20 10/04/20 10/04/20 10:00 10:00 10:14 WBC RBC Hgb Hct MCV MCH MCHC RDW Plt Count Lymph % (Auto) [place] % (Auto) Lymph # (Auto) [place] # (Auto) Baso # (Auto) Seg Neutrophils % Seg Neuts % (Manual) Lymphocytes % (Manual) Monocytes % (Manual) Nucleated RBC % Seg Neutrophils # Seg Neutrophils # Man Lymphocytes # (Manual) Monocytes # (Manual) PT INR APTT Fibrinogen D-Dimer > 81206 H ABG pH POC ABG pCO2 POC ABG pO2 ABG pO2 ABG HCO3 ABG Base Excess ABG Hemoglobin ABG Oxyhemoglobin ABG Sodium ABG Potassium ABG Chloride ABG Glucose VBG pH Oxyhemoglobin Carboxyhemoglobin Sodium Potassium Chloride Carbon Dioxide BUN Creatinine Glucose POC Glucose Lactic Acid 3.90 H* Calcium Ionized Calcium Phosphorus Magnesium AST ALT Alkaline Phosphatase Lactate Dehydrogenase NT-Pro-B Natriuret Pep 2788 H Total Protein Albumin Arterial Blood Glucose Arterial Blood Ionized Calcium Urine WBC (Auto) Vancomycin Trough Phenytoin Crossmatch 10/04/20 10/04/20 10/04/20 14:00 14:00 18:00 WBC 15.7 H RBC 3.17 L Hgb 9.3 L 9.6 L Hct 27.2 L 28.0 L MCV MCH MCHC RDW 16.9 H Plt Count 41 L Lymph % (Auto) 8.6 L [place] % (Auto) Lymph # (Auto) [place] # (Auto) 0.9 H Baso # (Auto) Seg Neutrophils % 85.4 H Seg Neuts % (Manual) Lymphocytes % (Manual) Monocytes % (Manual) Nucleated RBC % Seg Neutrophils # 13.4 H Seg Neutrophils # Man Lymphocytes # (Manual) Monocytes # (Manual) PT INR APTT Fibrinogen D-Dimer ABG pH POC ABG pCO2 POC ABG pO2 ABG pO2 ABG HCO3 ABG Base Excess ABG Hemoglobin ABG Oxyhemoglobin ABG Sodium ABG Potassium ABG Chloride ABG Glucose VBG pH Oxyhemoglobin Carboxyhemoglobin Sodium 133 L Potassium Chloride 96.4 L Carbon Dioxide BUN 18 H Creatinine 1.7 H Glucose POC Glucose Lactic Acid Calcium 6.3 L Ionized Calcium Phosphorus Magnesium AST ALT Alkaline Phosphatase Lactate Dehydrogenase NT-Pro-B Natriuret Pep Total Protein Albumin Arterial Blood Glucose Arterial Blood Ionized Calcium Urine WBC (Auto) Vancomycin Trough Phenytoin Crossmatch 10/04/20 10/04/20 10/05/20 18:00 22:00 05:00 WBC 17.6 H RBC 3.34 L Hgb 9.9 L Hct 29.4 L MCV MCH MCHC RDW 17.1 H Plt Count 56 L Lymph % (Auto) 8.5 L [place] % (Auto) Lymph # (Auto) [place] # (Auto) 1.0 H Baso # (Auto) Seg Neutrophils % 85.1 H Seg Neuts % (Manual) Lymphocytes % (Manual) Monocytes % (Manual) Nucleated RBC % Seg Neutrophils # 15.0 H Seg Neutrophils # Man Lymphocytes # (Manual) Monocytes # (Manual) PT INR APTT Fibrinogen D-Dimer ABG pH POC ABG pCO2 POC ABG pO2 ABG pO2 ABG HCO3 ABG Base Excess ABG Hemoglobin ABG Oxyhemoglobin ABG Sodium ABG Potassium ABG Chloride ABG Glucose VBG pH Oxyhemoglobin Carboxyhemoglobin Sodium 136 L Potassium Chloride Carbon Dioxide BUN 18 H Creatinine 1.7 H Glucose POC Glucose Lactic Acid 2.30 H* Calcium 6.6 L Ionized Calcium Phosphorus Magnesium AST ALT Alkaline Phosphatase Lactate Dehydrogenase NT-Pro-B Natriuret Pep Total Protein Albumin Arterial Blood Glucose Arterial Blood Ionized Calcium Urine WBC (Auto) Vancomycin Trough Phenytoin Crossmatch 10/05/20 10/05/20 10/05/20 05:00 05:00 05:03 WBC RBC Hgb Hct MCV MCH MCHC RDW Plt Count Lymph % (Auto) [place] % (Auto) Lymph # (Auto) [place] # (Auto) Baso # (Auto) Seg Neutrophils % Seg Neuts % (Manual) Lymphocytes % (Manual) Monocytes % (Manual) Nucleated RBC % Seg Neutrophils # Seg Neutrophils # Man Lymphocytes # (Manual) Monocytes # (Manual) PT INR APTT Fibrinogen D-Dimer ABG pH 7.458 H POC ABG pCO2 POC ABG pO2 ABG pO2 74.3 L ABG HCO3 27.5 H ABG Base Excess 3.4 H ABG Hemoglobin 10.0 L ABG Oxyhemoglobin ABG Sodium ABG Potassium ABG Chloride ABG Glucose VBG pH Oxyhemoglobin 94.9 L Carboxyhemoglobin Sodium Potassium Chloride Carbon Dioxide BUN 19 H Creatinine 1.8 H Glucose POC Glucose Lactic Acid Calcium 6.8 L Ionized Calcium 3.9 L Phosphorus Magnesium AST 225 H ALT 85 H Alkaline Phosphatase Lactate Dehydrogenase NT-Pro-B Natriuret Pep Total Protein 4.5 L Albumin 2.7 L Arterial Blood Glucose Arterial Blood Ionized Calcium Urine WBC (Auto) Vancomycin Trough Phenytoin Crossmatch 10/05/20 10/05/2010/05/20 10:10 15:00 19:40 WBC RBC Hgb Hct MCV MCH MCHC RDW Plt Count Lymph % (Auto) [place] % (Auto) Lymph # (Auto) [place] # (Auto) Baso # (Auto) Seg Neutrophils % Seg Neuts % (Manual) Lymphocytes % (Manual) Monocytes % (Manual) Nucleated RBC % Seg Neutrophils # Seg Neutrophils # Man Lymphocytes # (Manual) Monocytes # (Manual) PT INR APTT Fibrinogen D-Dimer ABG pH POC ABG pCO2 POC ABG pO2 ABG pO2 ABG HCO3 ABG Base Excess ABG Hemoglobin ABG Oxyhemoglobin ABG Sodium ABG Potassium ABG Chloride ABG Glucose VBG pH Oxyhemoglobin Carboxyhemoglobin Sodium Potassium 3.5 L Chloride Carbon Dioxide 31 H 32 H BUN 19 H 19 H Creatinine 1.8 H 1.8 H Glucose POC Glucose Lactic Acid Calcium 7.0 L 7.2 L Ionized Calcium Phosphorus Magnesium 2.90 H AST ALT Alkaline Phosphatase Lactate Dehydrogenase NT-Pro-B Natriuret Pep Total Protein Albumin Arterial Blood Glucose Arterial Blood Ionized Calcium Urine WBC (Auto) Vancomycin Trough Phenytoin Crossmatch 10/06/20 10/06/20 10/06/20 01:05 03:12 04:00 WBC 17.1 H RBC 3.47 L Hgb Hct MCV MCH MCHC RDW 17.4 H Plt Count 82 L Lymph % (Auto) 8.3 L [place] % (Auto) Lymph # (Auto) [place] # (Auto) 1.1 H Baso # (Auto) Seg Neutrophils % 83.8 H Seg Neuts % (Manual) Lymphocytes % (Manual) Monocytes % (Manual) Nucleated RBC % Seg Neutrophils # 14.3 H Seg Neutrophils # Man Lymphocytes # (Manual) Monocytes # (Manual) PT INR APTT Fibrinogen D-Dimer ABG pH 7.474 H POC ABG pCO2 POC ABG pO2 129.5 H ABG pO2 ABG HCO3 ABG Base Excess ABG Hemoglobin 11.4 L ABG Oxyhemoglobin ABG Sodium 131.8 L ABG Potassium ABG Chloride ABG Glucose 103 H VBG pH Oxyhemoglobin Carboxyhemoglobin 0.3 L Sodium Potassium Chloride Carbon Dioxide BUN Creatinine Glucose POC Glucose Lactic Acid Calcium Ionized Calcium Phosphorus Magnesium 3.70 H AST ALT Alkaline Phosphatase Lactate Dehydrogenase NT-Pro-B Natriuret Pep Total Protein Albumin Arterial Blood Glucose 103 H Arterial Blood Ionized Calcium 4.2 L Urine WBC (Auto) Vancomycin Trough Phenytoin Crossmatch 10/06/20 10/06/20 10/06/20 04:00 05:31 08:12 WBC RBC Hgb Hct MCV MCH MCHC RDW Plt Count Lymph % (Auto) [place] % (Auto) Lymph # (Auto) [place] # (Auto) Baso # (Auto) Seg Neutrophils % Seg Neuts % (Manual) Lymphocytes % (Manual) Monocytes % (Manual) Nucleated RBC % Seg Neutrophils # Seg Neutrophils # Man Lymphocytes # (Manual) Monocytes # (Manual) PT INR APTT Fibrinogen D-Dimer ABG pH POC ABG pCO2 POC ABG pO2 ABG pO2 ABG HCO3 ABG Base Excess ABG Hemoglobin ABG Oxyhemoglobin ABG Sodium ABG Potassium ABG Chloride ABG Glucose VBG pH Oxyhemoglobin Carboxyhemoglobin Sodium Potassium 3.5 L Chloride Carbon Dioxide BUN 19 H Creatinine 1.8 H Glucose 102 H POC Glucose 116 H Lactic Acid Calcium 7.2 L Ionized Calcium Phosphorus Magnesium 5.40 H AST 307 H ALT 137 H Alkaline Phosphatase Lactate Dehydrogenase NT-Pro-B Natriuret Pep Total Protein 4.5 L Albumin 2.6 L Arterial Blood Glucose Arterial Blood Ionized Calcium Urine WBC (Auto) Vancomycin Trough Phenytoin Crossmatch 10/06/20 10/06/20 10/06/20 11:00 11:50 20:13 WBC RBC Hgb Hct MCV MCH MCHC RDW Plt Count Lymph % (Auto) [place] % (Auto) Lymph # (Auto) [place] # (Auto) Baso # (Auto) Seg Neutrophils % Seg Neuts % (Manual) Lymphocytes % (Manual) Monocytes % (Manual) Nucleated RBC % Seg Neutrophils # Seg Neutrophils # Man Lymphocytes # (Manual) Monocytes # (Manual) PT INR APTT Fibrinogen D-Dimer ABG pH POC ABG pCO2 POC ABG pO2 ABG pO2 ABG HCO3 ABG Base Excess ABG Hemoglobin ABG Oxyhemoglobin ABG Sodium ABG Potassium ABG Chloride ABG Glucose VBG pH Oxyhemoglobin Carboxyhemoglobin Sodium Potassium Chloride Carbon Dioxide BUN Creatinine Glucose POC Glucose 106 H Lactic Acid Calcium Ionized Calcium Phosphorus Magnesium 6.50 H 6.20 H AST ALT Alkaline Phosphatase Lactate Dehydrogenase NT-Pro-B Natriuret Pep Total Protein Albumin Arterial Blood Glucose Arterial Blood Ionized Calcium Urine WBC (Auto) Vancomycin Trough Phenytoin Crossmatch 10/06/20 10/06/20 10/06/20 20:17 22:29 23:57 WBC RBC Hgb Hct MCV MCH MCHC RDW Plt Count Lymph % (Auto) [place] % (Auto) Lymph # (Auto) [place] # (Auto) Baso # (Auto) Seg Neutrophils % Seg Neuts % (Manual) Lymphocytes % (Manual) Monocytes % (Manual) Nucleated RBC % Seg Neutrophils # Seg Neutrophils # Man Lymphocytes # (Manual) Monocytes # (Manual) PT INR APTT Fibrinogen D-Dimer ABG pH POC ABG pCO2 POC ABG pO2 ABG pO2 ABG HCO3 ABG Base Excess ABG Hemoglobin ABG Oxyhemoglobin ABG Sodium ABG Potassium ABG Chloride ABG Glucose VBG pH Oxyhemoglobin Carboxyhemoglobin Sodium Potassium Chloride Carbon Dioxide BUN Creatinine Glucose POC Glucose 112 H 126 H 133 H Lactic Acid Calcium Ionized Calcium Phosphorus Magnesium AST ALT Alkaline Phosphatase Lactate Dehydrogenase NT-Pro-B Natriuret Pep Total Protein Albumin Arterial Blood Glucose Arterial Blood Ionized Calcium Urine WBC (Auto) Vancomycin Trough Phenytoin Crossmatch 10/07/20 10/07/20 10/07/20 00:35 02:22 03:16 WBC RBC Hgb Hct MCV MCH MCHC RDW Plt Count Lymph % (Auto) [place] % (Auto) Lymph # (Auto) [place] # (Auto) Baso # (Auto) Seg Neutrophils % Seg Neuts % (Manual) Lymphocytes % (Manual) Monocytes % (Manual) Nucleated RBC % Seg Neutrophils # Seg Neutrophils # Man Lymphocytes # (Manual) Monocytes # (Manual) PT INR APTT Fibrinogen D-Dimer ABG pH POC ABG pCO2 POC ABG pO2 ABG pO2 ABG HCO3 ABG Base Excess ABG Hemoglobin 11.6 L ABG Oxyhemoglobin ABG Sodium ABG Potassium ABG Chloride ABG Glucose 156 H VBG pH Oxyhemoglobin Carboxyhemoglobin 0.3 L Sodium Potassium Chloride Carbon Dioxide BUN Creatinine Glucose POC Glucose 124 H Lactic Acid Calcium Ionized Calcium Phosphorus Magnesium 5.90 H AST ALT Alkaline Phosphatase Lactate Dehydrogenase NT-Pro-B Natriuret Pep Total Protein Albumin Arterial Blood Glucose 156 H Arterial Blood Ionized Calcium 4.2 L Urine WBC (Auto) Vancomycin Trough Phenytoin Crossmatch 10/07/20 10/07/20 10/07/20 04:06 05:45 07:05 WBC 19.2 H RBC 3.57 L Hgb Hct MCV MCH MCHC 35 H RDW 17.1 H Plt Count 129 L Lymph % (Auto) [place] % (Auto) Lymph # (Auto) [place] # (Auto) Baso # (Auto) Seg Neutrophils % Seg Neuts % (Manual) 94.0 H Lymphocytes % (Manual) 6.0 L Monocytes % (Manual) Nucleated RBC % Seg Neutrophils # Seg Neutrophils # Man 18.0 H Lymphocytes # (Manual) Monocytes # (Manual) PT INR APTT Fibrinogen D-Dimer ABG pH POC ABG pCO2 POC ABG pO2 ABG pO2 ABG HCO3 ABG Base Excess ABG Hemoglobin ABG Oxyhemoglobin ABG Sodium ABG Potassium ABG Chloride ABG Glucose VBG pH Oxyhemoglobin Carboxyhemoglobin Sodium Potassium Chloride Carbon Dioxide BUN Creatinine Glucose POC Glucose 135 H 149 H Lactic Acid Calcium Ionized Calcium Phosphorus Magnesium AST ALT Alkaline Phosphatase Lactate Dehydrogenase NT-Pro-B Natriuret Pep Total Protein Albumin Arterial Blood Glucose Arterial Blood Ionized Calcium Urine WBC (Auto) Vancomycin Trough Phenytoin Crossmatch 10/07/20 10/07/20 10/07/20 07:05 07:05 12:21 WBC RBC Hgb Hct MCV MCH MCHC RDW Plt Count Lymph % (Auto) [place] % (Auto) Lymph # (Auto) [place] # (Auto) Baso # (Auto) Seg Neutrophils % Seg Neuts % (Manual) Lymphocytes % (Manual) Monocytes % (Manual) Nucleated RBC % Seg Neutrophils # Seg Neutrophils # Man Lymphocytes # (Manual) Monocytes # (Manual) PT INR APTT Fibrinogen D-Dimer ABG pH POC ABG pCO2 POC ABG pO2 ABG pO2 ABG HCO3 ABG Base Excess ABG Hemoglobin ABG Oxyhemoglobin ABG Sodium ABG Potassium ABG Chloride ABG Glucose VBG pH Oxyhemoglobin Carboxyhemoglobin Sodium Potassium Chloride Carbon Dioxide BUN 21 H Creatinine 1.7 H Glucose 171 H POC Glucose 124 H Lactic Acid Calcium 7.4 L Ionized Calcium Phosphorus Magnesium 6.10 H AST 245 H ALT 147 H Alkaline Phosphatase Lactate Dehydrogenase NT-Pro-B Natriuret Pep Total Protein 5.3 L Albumin 2.8 L Arterial Blood Glucose Arterial Blood Ionized Calcium Urine WBC (Auto) Vancomycin Trough Phenytoin Crossmatch 10/07/20 10/07/20 10/07/20 19:52 21:00 21:50 WBC RBC Hgb Hct MCV MCH MCHC RDW Plt Count Lymph % (Auto) [place] % (Auto) Lymph # (Auto) [place] # (Auto) Baso # (Auto) Seg Neutrophils % Seg Neuts % (Manual) Lymphocytes % (Manual) Monocytes % (Manual) Nucleated RBC % Seg Neutrophils # Seg Neutrophils # Man Lymphocytes # (Manual) Monocytes # (Manual) PT INR APTT Fibrinogen D-Dimer ABG pH POC ABG pCO2 POC ABG pO2 ABG pO2 ABG HCO3 ABG Base Excess ABG Hemoglobin ABG Oxyhemoglobin ABG Sodium ABG Potassium ABG Chloride ABG Glucose VBG pH Oxyhemoglobin Carboxyhemoglobin Sodium Potassium Chloride Carbon Dioxide BUN Creatinine Glucose POC Glucose 193 H 138 H Lactic Acid Calcium Ionized Calcium 4.4 L Phosphorus Magnesium AST ALT Alkaline Phosphatase Lactate Dehydrogenase NT-Pro-B Natriuret Pep Total Protein Albumin Arterial Blood Glucose Arterial Blood Ionized Calcium Urine WBC (Auto) Vancomycin Trough Phenytoin Crossmatch 10/07/20 10/08/20 10/08/20 23:41 04:20 05:30 WBC RBC Hgb Hct MCV MCH MCHC RDW Plt Count Lymph % (Auto) [place] % (Auto) Lymph # (Auto) [place] # (Auto) Baso # (Auto) Seg Neutrophils % Seg Neuts % (Manual) Lymphocytes % (Manual) Monocytes % (Manual) Nucleated RBC % Seg Neutrophils # Seg Neutrophils # Man Lymphocytes # (Manual) Monocytes # (Manual) PT INR APTT Fibrinogen D-Dimer ABG pH 7.467 H POC ABG pCO2 POC ABG pO2 189.8 H ABG pO2 ABG HCO3 ABG Base Excess ABG Hemoglobin 10.8 L ABG Oxyhemoglobin ABG Sodium ABG Potassium ABG Chloride ABG Glucose 133 H VBG pH Oxyhemoglobin Carboxyhemoglobin Sodium Potassium Chloride Carbon Dioxide BUN Creatinine Glucose POC Glucose 118 H 114 H Lactic Acid Calcium Ionized Calcium Phosphorus Magnesium AST ALT Alkaline Phosphatase Lactate Dehydrogenase NT-Pro-B Natriuret Pep Total Protein Albumin Arterial Blood Glucose 133 H Arterial Blood Ionized Calcium 4.2 L Urine WBC (Auto) Vancomycin Trough Phenytoin Crossmatch 10/08/20 10/08/20 10/08/20 05:43 06:42 06:42 WBC 23.6 H RBC 3.54 L Hgb Hct MCV MCH MCHC RDW 17.8 H Plt Count Lymph % (Auto) [place] % (Auto) Lymph # (Auto) [place] # (Auto) Baso # (Auto) Seg Neutrophils % Seg Neuts % (Manual) 93.0 H Lymphocytes % (Manual) 3.0 L Monocytes % (Manual) Nucleated RBC % 1.0 H Seg Neutrophils # Seg Neutrophils # Man 21.9 H Lymphocytes # (Manual) 0.7 L Monocytes # (Manual) 0.9 H PT INR APTT Fibrinogen D-Dimer ABG pH POC ABG pCO2 POC ABG pO2 ABG pO2 ABG HCO3 ABG Base Excess ABG Hemoglobin ABG Oxyhemoglobin ABG Sodium ABG Potassium ABG Chloride ABG Glucose VBG pH Oxyhemoglobin Carboxyhemoglobin Sodium Potassium Chloride Carbon Dioxide BUN 28 H Creatinine 1.6 H Glucose 141 H POC Glucose 126 H Lactic Acid Calcium 7.6 L Ionized Calcium Phosphorus Magnesium AST 162 H ALT 103 H Alkaline Phosphatase Lactate Dehydrogenase NT-Pro-B Natriuret Pep Total Protein 5.4 L Albumin 2.7 L Arterial Blood Glucose Arterial Blood Ionized Calcium Urine WBC (Auto) Vancomycin Trough Phenytoin Crossmatch 10/08/20 10/08/20 10/08/20 11:20 16:05 20:14 WBC RBC Hgb Hct MCV MCH MCHC RDW Plt Count Lymph % (Auto) [place] % (Auto) Lymph # (Auto) [place] # (Auto) Baso # (Auto) Seg Neutrophils % Seg Neuts % (Manual) Lymphocytes % (Manual) Monocytes % (Manual) Nucleated RBC % Seg Neutrophils # Seg Neutrophils # Man Lymphocytes # (Manual) Monocytes # (Manual) PT INR APTT Fibrinogen D-Dimer ABG pH POC ABG pCO2 POC ABG pO2 ABG pO2 ABG HCO3 ABG Base Excess ABG Hemoglobin ABG Oxyhemoglobin ABG Sodium ABG Potassium ABG Chloride ABG Glucose VBG pH Oxyhemoglobin Carboxyhemoglobin Sodium Potassium Chloride Carbon Dioxide BUN Creatinine Glucose POC Glucose 127 H 172 H 147 H Lactic Acid Calcium Ionized Calcium Phosphorus Magnesium AST ALT Alkaline Phosphatase Lactate Dehydrogenase NT-Pro-B Natriuret Pep Total Protein Albumin Arterial Blood Glucose Arterial Blood Ionized Calcium Urine WBC (Auto) Vancomycin Trough Phenytoin Crossmatch 10/08/20 10/08/20 10/09/20 21:27 23:24 02:10 WBC RBC Hgb Hct MCV MCH MCHC RDW Plt Count Lymph % (Auto) [place] % (Auto) Lymph # (Auto) [place] # (Auto) Baso # (Auto) Seg Neutrophils % Seg Neuts % (Manual) Lymphocytes % (Manual) Monocytes % (Manual) Nucleated RBC % Seg Neutrophils # Seg Neutrophils # Man Lymphocytes # (Manual) Monocytes # (Manual) PT INR APTT Fibrinogen D-Dimer ABG pH POC ABG pCO2 POC ABG pO2 ABG pO2 ABG HCO3 ABG Base Excess ABG Hemoglobin ABG Oxyhemoglobin ABG Sodium ABG Potassium ABG Chloride ABG Glucose VBG pH Oxyhemoglobin Carboxyhemoglobin Sodium Potassium Chloride Carbon Dioxide BUN Creatinine Glucose POC Glucose 140 H 135 H 111 H Lactic Acid Calcium Ionized Calcium Phosphorus Magnesium AST ALT Alkaline Phosphatase Lactate Dehydrogenase NT-Pro-B Natriuret Pep Total Protein Albumin Arterial Blood Glucose Arterial Blood Ionized Calcium Urine WBC (Auto) Vancomycin Trough Phenytoin Crossmatch 10/09/20 10/09/20 10/09/20 03:44 04:39 05:46 WBC 19.7 H RBC 3.51 L Hgb Hct MCV MCH MCHC RDW 17.7 H Plt Count Lymph % (Auto) [place] % (Auto) Lymph # (Auto) [place] # (Auto) Baso # (Auto) Seg Neutrophils % Seg Neuts % (Manual) 86.0 H Lymphocytes % (Manual) 4.0 L Monocytes % (Manual) 9.0 H Nucleated RBC % Seg Neutrophils # Seg Neutrophils # Man 16.9 H Lymphocytes # (Manual) 0.8 L Monocytes # (Manual) 1.8 H PT INR APTT Fibrinogen D-Dimer ABG pH 7.513 H POC ABG pCO2 POC ABG pO2 33.6 L ABG pO2 ABG HCO3 ABG Base Excess ABG Hemoglobin 11.1 L ABG Oxyhemoglobin 70.2 L ABG Sodium ABG Potassium 3.2 L ABG Chloride 108.0 H ABG Glucose 108 H VBG pH Oxyhemoglobin Carboxyhemoglobin Sodium Potassium Chloride Carbon Dioxide BUN Creatinine Glucose POC Glucose 109 H Lactic Acid Calcium Ionized Calcium Phosphorus Magnesium AST ALT Alkaline Phosphatase Lactate Dehydrogenase NT-Pro-B Natriuret Pep Total Protein Albumin Arterial Blood Glucose 108 H Arterial Blood Ionized Calcium 4.3 L Urine WBC (Auto) Vancomycin Trough Phenytoin Crossmatch 10/09/20 10/10/20 10/10/20 05:46 04:00 04:00 WBC 18.4 H RBC Hgb Hct MCV MCH MCHC RDW 17.5 H Plt Count Lymph % (Auto) 9.8 L [place] % (Auto) 8.8 H Lymph # (Auto) [place] # (Auto) 1.6 H Baso # (Auto) Seg Neutrophils % 80.0 H Seg Neuts % (Manual) Lymphocytes % (Manual) Monocytes % (Manual) Nucleated RBC % Seg Neutrophils # 14.7 H Seg Neutrophils # Man Lymphocytes # (Manual) Monocytes # (Manual) PT INR APTT Fibrinogen D-Dimer ABG pH POC ABG pCO2 POC ABG pO2 ABG pO2 ABG HCO3 ABG Base Excess ABG Hemoglobin ABG Oxyhemoglobin ABG Sodium ABG Potassium ABG Chloride ABG Glucose VBG pH Oxyhemoglobin Carboxyhemoglobin Sodium 146 H Potassium 3.2 L 2.9 L* Chloride 108.9 H 112.6 H Carbon Dioxide BUN 34 H 28 H Creatinine 1.4 H 1.3 H Glucose 109 H 101 H POC Glucose Lactic Acid Calcium 7.6 L 7.8 L Ionized Calcium Phosphorus Magnesium AST 137 H 122 H ALT 99 H 81 H Alkaline Phosphatase Lactate Dehydrogenase NT-Pro-B Natriuret Pep Total Protein 5.1 L 5.2 L Albumin 2.6 L 2.7 L Arterial Blood Glucose Arterial Blood Ionized Calcium Urine WBC (Auto) Vancomycin Trough Phenytoin Crossmatch 10/10/20 10/10/20 10/11/20 04:42 09:50 00:44 WBC RBC Hgb Hct MCV MCH MCHC RDW Plt Count Lymph % (Auto) [place] % (Auto) Lymph # (Auto) [place] # (Auto) Baso # (Auto) Seg Neutrophils % Seg Neuts % (Manual) Lymphocytes % (Manual) Monocytes % (Manual) Nucleated RBC % Seg Neutrophils # Seg Neutrophils # Man Lymphocytes # (Manual) Monocytes # (Manual) PT INR APTT Fibrinogen D-Dimer ABG pH 7.534 H POC ABG pCO2 POC ABG pO2 ABG pO2 95.2 H ABG HCO3 ABG Base Excess ABG Hemoglobin 11.3 L ABG Oxyhemoglobin ABG Sodium ABG Potassium ABG Chloride ABG Glucose VBG pH Oxyhemoglobin Carboxyhemoglobin Sodium Potassium Chloride Carbon Dioxide BUN Creatinine Glucose POC Glucose 109 H 106 H Lactic Acid Calcium Ionized Calcium Phosphorus Magnesium AST ALT Alkaline Phosphatase Lactate Dehydrogenase NT-Pro-B Natriuret Pep Total Protein Albumin Arterial Blood Glucose Arterial Blood Ionized Calcium Urine WBC (Auto) Vancomycin Trough Phenytoin Crossmatch 10/11/20 10/11/20 10/11/20 04:00 04:00 06:08 WBC 27.0 H RBC Hgb Hct MCV MCH MCHC RDW 17.7 H Plt Count Lymph % (Auto) 6.3 L [place] % (Auto) Lymph # (Auto) [place] # (Auto) 1.5 H Baso # (Auto) Seg Neutrophils % 87.1 H Seg Neuts % (Manual) Lymphocytes % (Manual) Monocytes % (Manual) Nucleated RBC % Seg Neutrophils # 23.5 H Seg Neutrophils # Man Lymphocytes # (Manual) Monocytes # (Manual) PT INR APTT Fibrinogen D-Dimer ABG pH POC ABG pCO2 POC ABG pO2 ABG pO2 ABG HCO3 ABG Base Excess ABG Hemoglobin ABG Oxyhemoglobin ABG Sodium ABG Potassium ABG Chloride ABG Glucose VBG pH Oxyhemoglobin Carboxyhemoglobin Sodium Potassium 3.2 L Chloride 110.4 H Carbon Dioxide 19 L BUN 22 H Creatinine Glucose 116 H POC Glucose 107 H Lactic Acid Calcium 7.7 L Ionized Calcium Phosphorus Magnesium 1.60 L AST ALT Alkaline Phosphatase Lactate Dehydrogenase NT-Pro-B Natriuret Pep Total Protein Albumin Arterial Blood Glucose Arterial Blood Ionized Calcium Urine WBC (Auto) Vancomycin Trough Phenytoin Crossmatch 10/11/20 10/11/20 10/12/20 11:41 13:26 03:52 WBC RBC Hgb Hct MCV MCH MCHC RDW Plt Count Lymph % (Auto) [place] % (Auto) Lymph # (Auto) [place] # (Auto) Baso # (Auto) Seg Neutrophils % Seg Neuts % (Manual) Lymphocytes % (Manual) Monocytes % (Manual) Nucleated RBC % Seg Neutrophils # Seg Neutrophils # Man Lymphocytes # (Manual) Monocytes # (Manual) PT INR APTT Fibrinogen D-Dimer ABG pH POC ABG pCO2 POC ABG pO2 ABG pO2 ABG HCO3 ABG Base Excess ABG Hemoglobin ABG Oxyhemoglobin ABG Sodium ABG Potassium ABG Chloride ABG Glucose VBG pH Oxyhemoglobin Carboxyhemoglobin Sodium Potassium Chloride Carbon Dioxide BUN Creatinine Glucose POC Glucose 116 H 114 H Lactic Acid Calcium Ionized Calcium Phosphorus Magnesium AST ALT Alkaline Phosphatase Lactate Dehydrogenase NT-Pro-B Natriuret Pep Total Protein Albumin Arterial Blood Glucose Arterial Blood Ionized Calcium Urine WBC (Auto) 24.0 H Vancomycin Trough Phenytoin Crossmatch 10/12/20 10/12/20 10/12/20 04:24 14:47 21:33 WBC RBC Hgb Hct MCV MCH MCHC RDW Plt Count Lymph % (Auto) [place] % (Auto) Lymph # (Auto) [place] # (Auto) Baso # (Auto) Seg Neutrophils % Seg Neuts % (Manual) Lymphocytes % (Manual) Monocytes % (Manual) Nucleated RBC % Seg Neutrophils # Seg Neutrophils # Man Lymphocytes # (Manual) Monocytes # (Manual) PT INR APTT Fibrinogen D-Dimer ABG pH POC ABG pCO2 POC ABG pO2 ABG pO2 ABG HCO3 ABG Base Excess ABG Hemoglobin ABG Oxyhemoglobin ABG Sodium ABG Potassium ABG Chloride ABG Glucose VBG pH Oxyhemoglobin Carboxyhemoglobin Sodium Potassium Chloride 109.9 H Carbon Dioxide 13 L BUN 18 H Creatinine Glucose 119 H POC Glucose 107 H Lactic Acid Calcium 7.6 L Ionized Calcium Phosphorus Magnesium 1.60 L AST ALT Alkaline Phosphatase Lactate Dehydrogenase NT-Pro-B Natriuret Pep Total Protein Albumin Arterial Blood Glucose Arterial Blood Ionized Calcium Urine WBC (Auto) Vancomycin Trough Phenytoin Crossmatch 10/12/20 10/12/20 10/13/20 Unknown Unknown 07:00 WBC 24.3 H RBC 3.38 L Hgb 9.8 L Hct MCV MCH MCHC RDW 18.7 H Plt Count Lymph % (Auto) [place] % (Auto) Lymph # (Auto) [place] # (Auto) Baso # (Auto) Seg Neutrophils % Seg Neuts % (Manual) 93.5 H Lymphocytes % (Manual) 4.5 L Monocytes % (Manual) Nucleated RBC % Seg Neutrophils # Seg Neutrophils # Man 22.7 H Lymphocytes # (Manual) 1.1 L Monocytes # (Manual) PT INR APTT Fibrinogen D-Dimer ABG pH POC ABG pCO2 POC ABG pO2 ABG pO2 ABG HCO3 ABG Base Excess ABG Hemoglobin ABG Oxyhemoglobin ABG Sodium ABG Potassium ABG Chloride ABG Glucose VBG pH Oxyhemoglobin Carboxyhemoglobin Sodium 135 L D Potassium 3.1 L Chloride Carbon Dioxide 17 L BUN Creatinine Glucose 510 H* POC Glucose Lactic Acid Calcium 7.2 L Ionized Calcium Phosphorus Magnesium AST ALT Alkaline Phosphatase Lactate Dehydrogenase NT-Pro-B Natriuret Pep Total Protein Albumin Arterial Blood Glucose Arterial Blood Ionized Calcium Urine WBC (Auto) Vancomycin Trough Phenytoin 5.7 L Crossmatch 10/13/20 10/13/20 10/13/20 07:00 07:00 07:18 WBC 23.6 H RBC 3.26 L Hgb 9.4 L Hct 28.7 L MCV MCH MCHC RDW 18.3 H Plt Count Lymph % (Auto) [place] % (Auto) Lymph # (Auto) [place] # (Auto) Baso # (Auto) Seg Neutrophils % Seg Neuts % (Manual) Lymphocytes % (Manual) Monocytes % (Manual) Nucleated RBC % Seg Neutrophils # Seg Neutrophils # Man Lymphocytes # (Manual) Monocytes # (Manual) PT INR APTT Fibrinogen D-Dimer ABG pH 7.473 H POC ABG pCO2 20.7 L POC ABG pO2 137.9 H ABG pO2 ABG HCO3 ABG Base Excess ABG Hemoglobin 11.2 L ABG Oxyhemoglobin 98.3 H ABG Sodium 135.9 L ABG Potassium ABG Chloride 111.0 H ABG Glucose 109 H VBG pH Oxyhemoglobin Carboxyhemoglobin 0.3 L Sodium 135 L Potassium 3.5 L Chloride 109.1 H Carbon Dioxide 18 L BUN Creatinine Glucose POC Glucose Lactic Acid Calcium 7.3 L Ionized Calcium Phosphorus Magnesium 1.60 L AST ALT Alkaline Phosphatase Lactate Dehydrogenase NT-Pro-B Natriuret Pep Total Protein Albumin Arterial Blood Glucose 109 H Arterial Blood Ionized Calcium Urine WBC (Auto) Vancomycin Trough Phenytoin Crossmatch 10/14/20 10/14/20 10/15/20 04:00 04:00 05:50 WBC 28.6 H 23.2 H RBC 3.61 L 3.43 L Hgb 9.9 L Hct 30.0 L MCV MCH MCHC RDW 18.3 H 18.2 H Plt Count Lymph % (Auto) [place] % (Auto) Lymph # (Auto) [place] # (Auto) Baso # (Auto) Seg Neutrophils % Seg Neuts % (Manual) 88.0 H 90.0 H Lymphocytes % (Manual) 5.0 L 4.0 L Monocytes % (Manual) Nucleated RBC % Seg Neutrophils # Seg Neutrophils # Man 25.2 H 20.9 H Lymphocytes # (Manual) 0.9 L Monocytes # (Manual) 1.4 H 0.9 H PT INR APTT Fibrinogen D-Dimer ABG pH POC ABG pCO2 POC ABG pO2 ABG pO2 ABG HCO3 ABG Base Excess ABG Hemoglobin ABG Oxyhemoglobin ABG Sodium ABG Potassium ABG Chloride ABG Glucose VBG pH Oxyhemoglobin Carboxyhemoglobin Sodium Potassium Chloride 109.9 H Carbon Dioxide 17 L BUN Creatinine Glucose POC Glucose Lactic Acid Calcium Ionized Calcium Phosphorus Magnesium AST ALT Alkaline Phosphatase Lactate Dehydrogenase NT-Pro-B Natriuret Pep Total Protein Albumin Arterial Blood Glucose Arterial Blood Ionized Calcium Urine WBC (Auto) Vancomycin Trough Phenytoin Crossmatch 10/15/20 10/16/20 10/17/20 05:50 11:57 04:57 WBC 15.2 H RBC 3.43 L Hgb Hct MCV MCH MCHC RDW 18.1 H Plt Count Lymph % (Auto) [place] % (Auto) Lymph # (Auto) [place] # (Auto) Baso # (Auto) Seg Neutrophils % Seg Neuts % (Manual) Lymphocytes % (Manual) Monocytes % (Manual) Nucleated RBC % Seg Neutrophils # Seg Neutrophils # Man Lymphocytes # (Manual) Monocytes # (Manual) PT INR APTT Fibrinogen D-Dimer ABG pH POC ABG pCO2 POC ABG pO2 ABG pO2 ABG HCO3 ABG Base Excess ABG Hemoglobin ABG Oxyhemoglobin ABG Sodium ABG Potassium ABG Chloride ABG Glucose VBG pH Oxyhemoglobin Carboxyhemoglobin Sodium Potassium Chloride 110.3 H Carbon Dioxide 18 L BUN Creatinine Glucose 105 H POC Glucose 111 H Lactic Acid Calcium 8.3 L Ionized Calcium Phosphorus Magnesium AST ALT Alkaline Phosphatase Lactate Dehydrogenase NT-Pro-B Natriuret Pep Total Protein Albumin Arterial Blood Glucose Arterial Blood Ionized Calcium Urine WBC (Auto) Vancomycin Trough Phenytoin Crossmatch 10/17/20 10/17/20 10/18/20 05:25 21:16 01:31 WBC RBC Hgb Hct MCV MCH MCHC RDW Plt Count Lymph % (Auto) [place] % (Auto) Lymph # (Auto) [place] # (Auto) Baso # (Auto) Seg Neutrophils % Seg Neuts % (Manual) Lymphocytes % (Manual) Monocytes % (Manual) Nucleated RBC % Seg Neutrophils # Seg Neutrophils # Man Lymphocytes # (Manual) Monocytes # (Manual) PT INR APTT Fibrinogen D-Dimer ABG pH POC ABG pCO2 POC ABG pO2 ABG pO2 ABG HCO3 ABG Base Excess ABG Hemoglobin ABG Oxyhemoglobin ABG Sodium ABG Potassium ABG Chloride ABG Glucose VBG pH Oxyhemoglobin Carboxyhemoglobin Sodium Potassium Chloride Carbon Dioxide BUN Creatinine Glucose POC Glucose 107 H 106 H 119 H Lactic Acid Calcium Ionized Calcium Phosphorus Magnesium AST ALT Alkaline Phosphatase Lactate Dehydrogenase NT-Pro-B Natriuret Pep Total Protein Albumin Arterial Blood Glucose Arterial Blood Ionized Calcium Urine WBC (Auto) Vancomycin Trough Phenytoin Crossmatch 10/18/20 10/18/20 10/19/20 05:45 11:23 01:14 WBC RBC Hgb Hct MCV MCH MCHC RDW Plt Count Lymph % (Auto) [place] % (Auto) Lymph # (Auto) [place] # (Auto) Baso # (Auto) Seg Neutrophils % Seg Neuts % (Manual) Lymphocytes % (Manual) Monocytes % (Manual) Nucleated RBC % Seg Neutrophils # Seg Neutrophils # Man Lymphocytes # (Manual) Monocytes # (Manual) PT INR APTT Fibrinogen D-Dimer ABG pH POC ABG pCO2 POC ABG pO2 ABG pO2 ABG HCO3 ABG Base Excess ABG Hemoglobin ABG Oxyhemoglobin ABG Sodium ABG Potassium ABG Chloride ABG Glucose VBG pH Oxyhemoglobin Carboxyhemoglobin Sodium Potassium Chloride Carbon Dioxide BUN Creatinine Glucose POC Glucose 106 H 115 H 108 H Lactic Acid Calcium Ionized Calcium Phosphorus Magnesium AST ALT Alkaline Phosphatase Lactate Dehydrogenase NT-Pro-B Natriuret Pep Total Protein Albumin Arterial Blood Glucose Arterial Blood Ionized Calcium Urine WBC (Auto) Vancomycin Trough Phenytoin Crossmatch 10/19/20 10/20/20 10/20/20 09:57 05:40 07:59 WBC RBC Hgb Hct MCV MCH MCHC RDW Plt Count Lymph % (Auto) [place] % (Auto) Lymph # (Auto) [place] # (Auto) Baso # (Auto) Seg Neutrophils % Seg Neuts % (Manual) Lymphocytes % (Manual) Monocytes % (Manual) Nucleated RBC % Seg Neutrophils # Seg Neutrophils # Man Lymphocytes # (Manual) Monocytes # (Manual) PT INR APTT Fibrinogen D-Dimer ABG pH POC ABG pCO2 POC ABG pO2 ABG pO2 ABG HCO3 ABG Base Excess ABG Hemoglobin ABG Oxyhemoglobin ABG Sodium ABG Potassium ABG Chloride ABG Glucose VBG pH Oxyhemoglobin Carboxyhemoglobin Sodium Potassium Chloride Carbon Dioxide BUN Creatinine Glucose 106 H POC Glucose 122 H 109 H Lactic Acid Calcium Ionized Calcium Phosphorus Magnesium AST ALT Alkaline Phosphatase Lactate Dehydrogenase NT-Pro-B Natriuret Pep Total Protein Albumin Arterial Blood Glucose Arterial Blood Ionized Calcium Urine WBC (Auto) Vancomycin Trough Phenytoin Crossmatch 10/20/20 10/20/20 10/21/20 16:52 16:52 13:54 WBC 18.8 H 17.0 H RBC Hgb Hct MCV MCH MCHC RDW 17.7 H 17.8 H Plt Count 547 H 544 H Lymph % (Auto) 11.2 L [place] % (Auto) 8.1 H Lymph # (Auto) [place] # (Auto) 1.5 H Baso # (Auto) 0.2 H Seg Neutrophils % 78.8 H Seg Neuts % (Manual) Lymphocytes % (Manual) Monocytes % (Manual) Nucleated RBC % Seg Neutrophils # 14.8 H Seg Neutrophils # Man Lymphocytes # (Manual) Monocytes # (Manual) PT INR APTT Fibrinogen D-Dimer ABG pH POC ABG pCO2 POC ABG pO2 ABG pO2 ABG HCO3 ABG Base Excess ABG Hemoglobin ABG Oxyhemoglobin ABG Sodium ABG Potassium ABG Chloride ABG Glucose VBG pH Oxyhemoglobin Carboxyhemoglobin Sodium Potassium Chloride Carbon Dioxide BUN Creatinine Glucose POC Glucose Lactic Acid Calcium Ionized Calcium Phosphorus Magnesium AST ALT Alkaline Phosphatase Lactate Dehydrogenase NT-Pro-B Natriuret Pep Total Protein Albumin Arterial Blood Glucose Arterial Blood Ionized Calcium Urine WBC (Auto) Vancomycin Trough 34.5 H Phenytoin Crossmatch 10/21/20 10/22/20 10/23/20 13:54 07:26 05:34 WBC 18.7 H 13.0 H RBC 3.64 L 3.50 L Hgb Hct 30.0 L MCV MCH MCHC 35 H RDW 17.7 H 17.6 H Plt Count 502 H 503 H Lymph % (Auto) [place] % (Auto) Lymph # (Auto) [place] # (Auto) Baso # (Auto) Seg Neutrophils % Seg Neuts % (Manual) Lymphocytes % (Manual) Monocytes % (Manual) Nucleated RBC % Seg Neutrophils # Seg Neutrophils # Man Lymphocytes # (Manual) Monocytes # (Manual) PT INR APTT Fibrinogen D-Dimer ABG pH POC ABG pCO2 POC ABG pO2 ABG pO2 ABG HCO3 ABG Base Excess ABG Hemoglobin ABG Oxyhemoglobin ABG Sodium ABG Potassium ABG Chloride ABG Glucose VBG pH Oxyhemoglobin Carboxyhemoglobin Sodium 136 L Potassium Chloride Carbon Dioxide BUN Creatinine Glucose 120 H POC Glucose Lactic Acid Calcium Ionized Calcium Phosphorus Magnesium AST ALT Alkaline Phosphatase Lactate Dehydrogenase NT-Pro-B Natriuret Pep Total Protein Albumin Arterial Blood Glucose Arterial Blood Ionized Calcium Urine WBC (Auto) Vancomycin Trough Phenytoin Crossmatch 10/23/20 10/26/20 10/27/20 05:34 10:30 07:53 WBC 13.6 H RBC 3.38 L Hgb 10.0 L Hct 28.8 L MCV MCH MCHC 35 H RDW 17.6 H Plt Count Lymph % (Auto) [place] % (Auto) Lymph # (Auto) [place] # (Auto) Baso # (Auto) Seg Neutrophils % Seg Neuts % (Manual) Lymphocytes % (Manual) Monocytes % (Manual) Nucleated RBC % Seg Neutrophils # Seg Neutrophils # Man Lymphocytes # (Manual) Monocytes # (Manual) PT INR APTT Fibrinogen D-Dimer ABG pH 7.459 H POC ABG pCO2 POC ABG pO2 ABG pO2 112.2 H ABG HCO3 ABG Base Excess ABG Hemoglobin ABG Oxyhemoglobin ABG Sodium ABG Potassium ABG Chloride ABG Glucose VBG pH Oxyhemoglobin Carboxyhemoglobin Sodium 135 L Potassium Chloride Carbon Dioxide BUN Creatinine Glucose 105 H POC Glucose Lactic Acid Calcium Ionized Calcium Phosphorus Magnesium AST ALT Alkaline Phosphatase Lactate Dehydrogenase NT-Pro-B Natriuret Pep Total Protein Albumin Arterial Blood Glucose Arterial Blood Ionized Calcium Urine WBC (Auto) Vancomycin Trough Phenytoin Crossmatch 10/27/20 10/27/20 10/28/20 07:53 11:31 05:19 WBC RBC Hgb Hct MCV MCH MCHC RDW Plt Count Lymph % (Auto) [place] % (Auto) Lymph # (Auto) [place] # (Auto) Baso # (Auto) Seg Neutrophils % Seg Neuts % (Manual) Lymphocytes % (Manual) Monocytes % (Manual) Nucleated RBC % Seg Neutrophils # Seg Neutrophils # Man Lymphocytes # (Manual) Monocytes # (Manual) PT INR APTT Fibrinogen D-Dimer ABG pH POC ABG pCO2 POC ABG pO2 ABG pO2 ABG HCO3 ABG Base Excess ABG Hemoglobin ABG Oxyhemoglobin ABG Sodium ABG Potassium ABG Chloride ABG Glucose VBG pH Oxyhemoglobin Carboxyhemoglobin Sodium Potassium Chloride Carbon Dioxide BUN 20 H Creatinine Glucose 112 H POC Glucose 113 H 112 H Lactic Acid Calcium Ionized Calcium Phosphorus Magnesium AST 83 H ALT Alkaline Phosphatase Lactate Dehydrogenase NT-Pro-B Natriuret Pep Total Protein Albumin 3.8 L Arterial Blood Glucose Arterial Blood Ionized Calcium Urine WBC (Auto) Vancomycin Trough Phenytoin Crossmatch 10/29/20 10/29/20 10/29/20 07:56 07:56 11:37 WBC 13.6 H RBC Hgb Hct MCV MCH MCHC RDW 17.0 H Plt Count Lymph % (Auto) [place] % (Auto) Lymph # (Auto) [place] # (Auto) Baso # (Auto) Seg Neutrophils % Seg Neuts % (Manual) 80.0 H Lymphocytes % (Manual) Monocytes % (Manual) Nucleated RBC % Seg Neutrophils # Seg Neutrophils # Man 10.9 H Lymphocytes # (Manual) Monocytes # (Manual) PT INR APTT Fibrinogen D-Dimer ABG pH POC ABG pCO2 POC ABG pO2 ABG pO2 ABG HCO3 ABG Base Excess ABG Hemoglobin ABG Oxyhemoglobin ABG Sodium ABG Potassium ABG Chloride ABG Glucose VBG pH Oxyhemoglobin Carboxyhemoglobin Sodium Potassium Chloride Carbon Dioxide BUN Creatinine Glucose POC Glucose 108 H Lactic Acid Calcium Ionized Calcium Phosphorus 4.70 H Magnesium AST ALT Alkaline Phosphatase Lactate Dehydrogenase NT-Pro-B Natriuret Pep Total Protein Albumin Arterial Blood Glucose Arterial Blood Ionized Calcium Urine WBC (Auto) Vancomycin Trough Phenytoin Crossmatch 10/29/20 13:32 WBC RBC Hgb Hct MCV MCH MCHC RDW Plt Count Lymph % (Auto) [place] % (Auto) Lymph # (Auto) [place] # (Auto) Baso # (Auto) Seg Neutrophils % Seg Neuts % (Manual) Lymphocytes % (Manual) Monocytes % (Manual) Nucleated RBC % Seg Neutrophils # Seg Neutrophils # Man Lymphocytes # (Manual) Monocytes # (Manual) PT INR APTT Fibrinogen D-Dimer ABG pH POC ABG pCO2 POC ABG pO2 ABG pO2 ABG HCO3 ABG Base Excess ABG Hemoglobin ABG Oxyhemoglobin ABG Sodium ABG Potassium ABG Chloride ABG Glucose VBG pH Oxyhemoglobin Carboxyhemoglobin Sodium Potassium Chloride Carbon Dioxide BUN Creatinine Glucose POC Glucose 108 H Lactic Acid Calcium Ionized Calcium Phosphorus Magnesium AST ALT Alkaline Phosphatase Lactate Dehydrogenase NT-Pro-B Natriuret Pep Total Protein Albumin Arterial Blood Glucose Arterial Blood Ionized Calcium Urine WBC (Auto) Vancomycin Trough Phenytoin Crossmatch
[2020-10-30] MEDS: GLYCOPYRROLATE 1 MG TAB PO SCH ×2 (09:05→21:49)
[2020-10-30] MEDS: ENOXAPARIN 40 MG/0.4 ML INJ SUB-Q SCH (09:05)
[2020-10-30] MEDS: FUROSEMIDE 40 MG TAB PO SCH (09:05)
[2020-10-30] MEDS: TOPIRAMATE TAB 25 MG TAB PO SCH ×2 (09:05→21:49)
[2020-10-30] MEDS: FAMOTIDINE 20 MG TAB PO SCH ×2 (09:05→21:49)
[2020-10-30] MEDS: SODIUM BICARBONATE 650 MG TAB PO SCH ×3 (09:05→20:39)
[2020-10-30] MEDS: DEXTROSE 10% IN WATER 1,000 ML IV SCH (10:01)
--- NOTE | 2020-10-30 15:28 | Progress Note ---
Assessment and Plan Assessment and plan: 30 year old -L[place]anese female CHE 10/25/20 at 36w5d who presents with seizures in triage on 10/02/20. Pt was not able to provide history but per pt's , she presented to the hospital to return a 24 hour urine specimen for analysis. She then suddenly reported that she did not feel good. She was taken to labor and delivery and shortly after arrival, she began seizing. During this time, a code met was called because the patient became hypoxic. She was then noted to be without a pulse. Chest compressions were started immediately, and the patient was emergently taken to the operating room for delivery of the fetus. Off note, This patient has had care at [facility] [employer] [facility] with comanagement by [facility] since 11 wks complicated by ADHD, morbid obesity, generalized anxiety disorder, panic attacks, chronic narcotic use, fibromyalgia, GERD, Irritable Bowel Syndrome, Migraines, h/o endometrial ablation and ovarian vein embolization, genital herpes, insomnia, LGA fetus, nausea and vomiting, polyhydramnios, quad screen positive for Down's Syndrome, and previous x 3. She is GBS negative. , Patient tracheostomy on ventilatory support, unable to wean, continue supportive care poor prognosis --COVID-19 test negative; 10/08/2020 --C. difficile colitis test; positive; 10/16/2020 --Acute hypoxic respiratory failure: Tracheostomy on T-piece , 5 L oxygen, saturating 100% Nebulizers, continue oxygen titrate O2 sats to more than 90% Pulmonary critical following --Sepsis; received antibiotics Continue to monitor off antibiotics ID following --Cardiac arrest; 10/07/2020 ,status post CPR --Acute metabolic encephalopathy --Acute hypoxic brain injury; Supportive care, closely monitor --Acute kidney injury; vasomotor nephropathy Resolved, renal function within normal limits, closely monitor --Shock; septic versus cardiogenic Requiring vasopressors, stable --DIC; sepsis, septic shock, resolved --History of preeclampsia; / hemorrhage Status post hysterectomy --History of C. difficile colitis; completed oral vancomycin --DVT/SVT and right upper extremity Very poor prognosis, Consults recommendations noted and appreciated We will closely monitor the patient and adjust management as needed Plan of care reviewed with the patient's nurse. 11:30: Pt brought to L&D triage for evaluation of possible labor. Pt accompanied by her spouse. Pt spouse poor historian; unable to obtain history- allergies at this time. Pt taken from registration to triage area via WC. Pt unresponsive, actively seizing with snorous respirations. city jailer, Kassy, called and requesting assistance. 11:35: Multiple staff at bedside. Pt 02 sat 67% on nonrebreather, unable to read BP at this time. Yifan Theodore CRNA, at bedside for intubation and assistance with IV insertion. INT attempt by multiple RNs unsuccessful at this time. 11:42: Pt being bagged by KORIN, 02% 79%. No pulse palpated, compressions started at this time; bharati young called and Dr. Newberry preparing OR for emergent c/s. 11:44: Continued compressions on stretcher while transporting pt to OR 1. Pt being bagged with jaw thrust manuever in place by KORIN Stringer student. 11:45: Arrival to OR 1. Dr. Newberry and Dr. Portillo present for emergent c/s. Code team arrived for continued care. patient revived and c/s done Patient has been bleeding from C/s site followed by supracervical hysterectomy for severe bleeding Patient transfused multiple units of PRBC, Patient in DIC. Transferred to the ICU 10/03. Patient seen and examined at bedside this morning. Patient is nonresponsive and mechanically ventilated. On pressors. Labs reviewed-has leukocytosis, anemia, thrombocytopenia, ADOLPH and lactic acidosis. Started on IV antibiotics to cover possible sepsis secondary to DIC. Hematology oncology recommendations appreciated-needs additional cryoprecipitate and FFP. Monitor D-dimer, fibrinogen and frequent labs. Nephrology consulted for lactic acidosis and ADOLPH. 10/04. Remains mechanically ventilated. Kevin antibiotics. Labs shows improved acidosis - lactic acid 3.5. Hb drop noted. Getting transfused 2 units PRBCs. Platelet count is ~40k. Continue to monitor labs closely. Critical care team on board. 10/05; xray reviewed, concerning for multifocal infilrate, likely underlying Pneumonia, will add ID consult to assist with management of this critically ill patient, start tube feed, closely monitor renal system 10/06: Resumed care, remains on mechanical ventilation. No active bleeding, H&H stable. Continue to monitor CBC and BMP. Continue IV antibiotic for underlying pneumonia. Follow critical care and ID recommendation. 10/07: Remains on mechanical ventilation. No active bleeding, H&H stable. Critical care following, wean off ventilation as tolerated. 10/08: Patient had another cardiac arrest last night. Remains on mechanical ventilation, update family. Continue supportive care -poor prognosis 10/09: Called patient mother and discussed about patient care and management. Answered all question to best of my knowledge and family satisfaction. Patient remains on mechanical ventilation, cardiac arrest x2 so far. Critically sick, poor prognosis 10/10: remains on mechanical ventilation. h/h stable, no active bleeding. monitor CBC/BMP 10/11: WBC trended up with diarrhea, started on vancomycin po. remains on MV, off pressor, tolerating TF 10/12: remains on MV, off pressor, tolerating TF. called family for update but unable to reach, could not leave message as it was full. cont supportive care, wean off vent as tolerated. 10/13/2020; patient is on mechanical ventilation, tolerating tube feeding. Patient has labored breathing. Neuro was consulted and recommend MRI. Patient is on Precedex. Rectal tube in place. 10/14/2020; patient is on mechanical ventilation, Precedex. Patient had fever and blood culture ordered. Patient is on IV vancomycin per ID recommendation. Neuro consulted and recommend MRI. Continue to monitor. Prognosis is guarded. 10/15/2020; patient is on mechanical ventilation, Precedex. Patient had fever and blood culture ordered. Patient is on IV vancomycin per ID recommendation. Neuro consulted and recommend MRI. Continue to monitor. Prognosis is guarded. 1/2: Remains with C.DIFF and Bactermia, Poor prognosis. No purposeful movement. MRI and EEG discussed with Intensvisit, Continue aggressive BP control. 13: Blood pressure better controlled MRI done 10/15 shows mild improvement in edema. We will continue to monitor mother was at bedside yesterday. Nursing documentation trach and PEG discussed with the mother including goals of care. She is still in denial about the gravity of her daughters her condition which is understandable considering her age. Continue aggressive management at this time. Await for bacteremia to clear by ID before placing PICC line. 10/19: Patient for possible PEG and Trach, ID following, repeat cultures remain negative. Poor prognosis 10/20: Pt noted to DVT and SVT in the RUE, Vascular consult and will also obtain Hematology for possible considering changing in Anticoagulation. CONTINUE TO MONITOR H/H and PLT. Family updated by [employer]ens[employer]. Heparin gtt started. Will check CBC and BMP 10/21: Continue supporive care, Diarrhea now resolving, But still with persistent Fever, May need repeat CT/AP per ID, still with profused Encephalopathy 10/22: Continue supportive care, weaning, awaiting repeat Imaging. FOLLOW Fever curve. Enoxparin restarted 10/23: Continue supportive care, wean as tolerated. 10/24; Started on CPAP trial, discussed with pulmonary, still with diarrhea. 10/25: Patients seen and examined, no clinical changes, still with diarrhea. ?meaningful recovery. 10/26: Clinically unchanged, continue CPAP trial, Will discuss with Neurology about re-evaluation, ?Need for repeat CT head. ?PRESS considering initial elevated BP, now stable. 10/27; tracheostomy on vent, weaning trials, vital signs noted, poor prognosis 10/28; unable to wean, tracheostomy on vent. Sepsis. Continue current management. Consults and recommendations noted and appreciated 10/30/2020;Patient on T-piece 5 L of oxygen not in acute distress, noncommunicative The high probability of a clinically significant, sudden or life threatening deterioration of the [MULTIPLE ORGAN] system(s) required my full and direct attention, intervention and personal management. The aggregate critical care time was [40 ] minutes. This time is in addition to time spent performing reported procedures but includes the following: [X] Data Review and interpretation [X] Patient assessment and monitoring of vital signs [X] Documentation [X] Medication orders and management History Interval history: I seen and examined the patient at the bedside Patient's chart and medications reviewed Patient is Covid negative, C. difficile positive, Isolation protocols Tracheostomy on T-piece with 5 L of oxygen Vital signs reviewed Hospitalist Physical - Constitutional Vitals: Temp Pulse Resp BP Pulse Ox 99.4 F 93 H 26 H 111/63 100 10/30/20 12:00 10/30/20 14:00 10/30/20 14:00 10/30/20 14:00 10/30/20 14:00 General appearance: Present: mild distress, well-nourished, obese, other (Trache ostomy on T-piece) - EENT Eyes: Present: PERRL, EOM intact - Neck Neck: Present: supple, normal ROM - Respiratory Respiratory effort: normal Respiratory: bilateral: diminished, rhonchi, negative: rales, wheezing - Cardiovascular Rhythm: regular Heart Sounds: Present: S1 & S2 - Extremities Extremities: no ischemia, No edema - Abdominal General gastrointestinal: soft, non-tender, non-distended, normal bowel sounds - Integumentary Integumentary: Present: clear, warm - Psychiatric Psychiatric: other (Noncommunicative) - Neurologic Neurologic: other (Noncommunicative) HEART Score - HEART Score Age: < 45 Risk factors: 1-2 risk factors - Critical Actions Critical Actions: >7 pts:50-65% risk of adverse cardiac event. Early invasive measures Results - Labs CBC & Chem 7: 10/29/20 07:56 10/29/20 07:56 Labs: Laboratory Last Values WBC 13.6 K/mm3 (4.5-11.0) H 10/29/20 07:56 RBC 3.88 M/mm3 (3.65-5.03) 10/29/20 07:56 Hgb 10.9 gm/dl (10.1-14.3) 10/29/20 07:56 Hgb Comment See scanned result 10/04/20 Unknown Hct 32.4 % (30.3-42.9) 10/29/20 07:56 MCV 84 fl (79-97) 10/29/20 07:56 MCH 28 pg (28-32) 10/29/20 07:56 MCHC 34 % (30-34) 10/29/20 07:56 RDW 17.0 % (13.2-15.2) H 10/29/20 07:56 Plt Count 437 K/mm3 (140-440) 10/29/20 07:56 Lymph % (Auto) 11.2 % (13.4-35.0) L 10/20/20 16:52 Woods % (Auto) 8.1 % (0.0-7.3) H 10/20/20 16:52 Eos % (Auto) 0.8 % (0.0-4.3) 10/20/20 16:52 Baso % (Auto) 1.1 % (0.0-1.8) 10/20/20 16:52 Lymph # (Auto) 2.1 K/mm3 (1.2-5.4) 10/20/20 16:52 Woods # (Auto) 1.5 K/mm3 (0.0-0.8) H 10/20/20 16:52 Eos # (Auto) 0.2 K/mm3 (0.0-0.4) 10/20/20 16:52 Baso # (Auto) 0.2 K/mm3 (0.0-0.1) H 10/20/20 16:52 Add Manual Diff Complete 10/29/20 07:56 Total Counted 100 10/29/20 07:56 Seg Neutrophils % 78.8 % (40.0-70.0) H 10/20/20 16:52 Seg Neuts % (Manual) 80.0 % (40.0-70.0) H 10/29/20 07:56 Band Neutrophils % 2.0 % 10/15/20 05:50 Lymphocytes % (Manual) 15.0 % (13.4-35.0) 10/29/20 07:56 Reactive Lymphs % (Man) 1.0 % 10/02/20 12:18 Monocytes % (Manual) 4.0 % (0.0-7.3) 10/29/20 07:56 Eosinophils % (Manual) 1.0 % (0.0-4.3) 10/29/20 07:56 Myelocytes % 2.0 % 10/02/20 13:05 Metamyelocytes % 1.0 % 10/14/20 04:00 Nucleated RBC % Not Reportable 10/29/20 07:56 Seg Neutrophils # 14.8 K/mm3 (1.8-7.7) H 10/20/20 16:52 Seg Neutrophils # Man 10.9 K/mm3 (1.8-7.7) H 10/29/20 07:56 Band Neutrophils # 0.0 K/mm3 10/29/20 07:56 Lymphocytes # (Manual) 2.0 K/mm3 (1.2-5.4) 10/29/20 07:56 Abs React Lymphs (Man) 0.0 K/mm3 10/29/20 07:56 Monocytes # (Manual) 0.5 K/mm3 (0.0-0.8) 10/29/20 07:56 Eosinophils # (Manual) 0.1 K/mm3 (0.0-0.4) 10/29/20 07:56 Basophils # (Manual) 0.0 K/mm3 (0.0-0.1) 10/29/20 07:56 Metamyelocytes # 0.0 K/mm3 10/29/20 07:56 Myelocytes # 0.0 K/mm3 10/29/20 07:56 Promyelocytes # 0.0 K/mm3 10/29/20 07:56 Blast Cells # 0.0 K/mm3 10/29/20 07:56 WBC Morphology Not Reportable 10/29/20 07:56 Hypersegmented Neuts Not Reportable 10/29/20 07:56 Hyposegmented Neuts Not Reportable 10/29/20 07:56 Hypogranular Neuts Not Reportable 10/29/20 07:56 Smudge Cells Not Reportable 10/29/20 07:56 Toxic Granulation Not Reportable 10/29/20 07:56 Toxic Vacuolation Not Reportable 10/29/20 07:56 Dohle Bodies Not Reportable 10/29/20 07:56 Pelger-Huet Anomaly Not Reportable 10/29/20 07:56 Estre Rods Not Reportable 10/29/20 07:56 Platelet Estimate Consistent w auto 10/29/20 07:56 Clumped Platelets Not Reportable 10/29/20 07:56 Plt Clumps, EDTA Not Reportable 10/29/20 07:56 Large Platelets Few 10/29/20 07:56 Giant Platelets Not Reportable 10/29/20 07:56 Platelet Satelliting Not Reportable 10/29/20 07:56 Plt Morphology Comment Not Reportable 10/29/20 07:56 RBC Morphology Not Reportable 10/29/20 07:56 Dimorphic RBCs Not Reportable 10/29/20 07:56 Polychromasia Rare 10/29/20 07:56 Hypochromasia Few 10/29/20 07:56 Poikilocytosis Not Reportable 10/29/20 07:56 Anisocytosis Not Reportable 10/29/20 07:56 Microcytosis Not Reportable 10/29/20 07:56 Macrocytosis Not Reportable 10/29/20 07:56 Spherocytes Not Reportable 10/29/20 07:56 Pappenheimer Bodies Not Reportable 10/29/20 07:56 Sickle Cells Not Reportable 10/29/20 07:56 Target Cells Few 10/29/20 07:56 Tear Drop Cells Not Reportable 10/29/20 07:56 Ovalocytes Not Reportable 10/29/20 07:56 Stomatocytes Few 10/14/20 04:00 Helmet Cells Not Reportable 10/29/20 07:56 Burk-Gerster Bodies Not Reportable 10/29/20 07:56 [place] Rings Not Reportable 10/29/20 07:56 [place] Cells Not Reportable 10/29/20 07:56 Bite Cells Not Reportable 10/29/20 07:56 Crenated Cell Not Reportable 10/29/20 07:56 Elliptocytes Not Reportable 10/29/20 07:56 Acanthocytes (Spur) Not Reportable 10/29/20 07:56 Rouleaux Not Reportable 10/29/20 07:56 Hemoglobin C Crystals Not Reportable 10/29/20 07:56 Schistocytes Not Reportable 10/29/20 07:56 Malaria parasites Not Reportable 10/29/20 07:56 Sickle Cell Solubility See scanned result 10/04/20 Unknown Hemoglobin A See scanned result 10/04/20 Unknown Hemoglobin A2 See scanned result 10/04/20 Unknown Hemoglobin A2 Prime See scanned result 10/04/20 Unknown Hemoglobin C See scanned result 10/04/20 Unknown Hemoglobin D See scanned result 10/04/20 Unknown Hemoglobin E See scanned result 10/04/20 Unknown Hgb F Diffential Stain See scanned result 10/04/20 Unknown Hemoglobin F Quant See scanned result 10/04/20 Unknown Hemoglobin G See scanned result 10/04/20 Unknown Hemoglobin S See scanned result 10/04/20 Unknown Hemoglobin [place] See scanned result 10/04/20 Unknown Hemoglobin [place] See scanned result 10/04/20 Unknown Hemoglobin Analilia See scanned result 10/04/20 Unknown Variant Hemoglobin See scanned result 10/04/20 Unknown Abnorm Hgb IEF Confirm See scanned result 10/04/20 Unknown Hemoglobin Interpret See scanned result 10/04/20 Unknown Hemoglobinopathy Note See scanned result 10/04/20 Unknown Sharad Bodies Not Reportable 10/29/20 07:56 Hem Pathologist Commnt No 10/29/20 07:56 PT 13.6 Sec. (12.2-14.9) 10/21/20 13:54 INR 1.06 (0.87-1.13) 10/21/20 13:54 APTT 31.6 Sec. (24.2-36.6) 10/03/20 00:40 Fibrinogen 336 mg/dl (211-480) 10/04/20 10:00 D-Dimer > 44957 ng/mlDDU (0-234) H 10/04/20 10:00 ABG pH 7.459 pH Units (7.350-7.450) H 10/26/20 10:30 POC ABG pCO2 20.7 mmHg (32.0-48.0) L 10/13/20 07:18 ABG pCO2 32.4 mm Hg 10/26/20 10:30 POC ABG pO2 137.9 mmHg (83-108) H 10/13/20 07:18 ABG pO2 112.2 mm Hg (80.0-90.0) H 10/26/20 10:30 POC ABG HCO3 14.8 10/13/20 07:18 ABG HCO3 22.5 mmol/L (20.0-26.0) 10/26/20 10:30 ABG O2 Saturation 98.2 % (95.0-99.0) 10/26/20 10:30 ABG O2 Content 18.5 (0.0-44) 10/26/20 10:30 POC ABG Base Excess -6.9 10/13/20 07:18 ABG Base Excess -0.6 mmol/L (-2.0-3.0) 10/26/20 10:30 ABG Hemoglobin 13.5 gm/dl (12.0-16.0) 10/26/20 10:30 ABG Oxyhemoglobin 98.3 (94-98) H 10/13/20 07:18 ABG Carboxyhemoglobin 1.3 % (0.0-5.0) 10/26/20 10:30 ABG Methemoglobin 0.5 % (0.0-1.5) 10/26/20 10:30 ABG Sodium 135.9 mmol/L (136.0-145.0) L 10/13/20 07:18 ABG Potassium 3.7 mmol/L (3.40-4.50) 10/13/20 07:18 ABG Chloride 111.0 mmol/L (98-107) H 10/13/20 07:18 ABG Glucose 109 mg/dL (65-95) H 10/13/20 07:18 VBG pH 6.949 (7.320-7.420) L* 10/02/20 Unknown Oxyhemoglobin 96.5 % (95.0-99.0) 10/26/20 10:30 Carboxyhemoglobin 0.3 (0.5-1.5) L 10/13/20 07:18 FiO2 25 % 10/26/20 10:30 Sodium 139 mmol/L (137-145) 10/27/20 07:53 Potassium 4.6 mmol/L (3.6-5.0) 10/29/20 07:56 Chloride 104.7 mmol/L (98-107) 10/27/20 07:53 Carbon Dioxide 23 mmol/L (22-30) 10/27/20 07:53 Anion Gap 16 mmol/L 10/27/20 07:53 BUN 20 mg/dL (7-17) H 10/27/20 07:53 Creatinine 0.6 mg/dL (0.6-1.2) 10/27/20 07:53 Estimated GFR > 60 ml/min 10/27/20 07:53 BUN/Creatinine Ratio 33 % 10/27/20 07:53 Glucose 112 mg/dL (65-100) H 10/27/20 07:53 POC Glucose 106 mg/dL (70-105) H 10/30/20 12:11 Lactic Acid 1.90 mmol/L (0.7-2.0) 10/04/20 22:00 Uric Acid 7.5 mg/dL (3.5-7.6) 10/02/20 13:05 Calcium 9.7 mg/dL (8.4-10.2) 10/27/20 07:53 Ionized Calcium 4.4 mg/dL (4.8-5.6) L 10/07/20 21:00 Phosphorus 4.70 mg/dL (2.5-4.5) H 10/29/20 07:56 Magnesium 2.00 mg/dL (1.7-2.3) 10/29/20 07:56 Total Bilirubin 0.40 mg/dL (0.1-1.2) 10/27/20 07:53 AST 83 units/L (5-40) H 10/27/20 07:53 ALT 30 units/L (7-56) 10/27/20 07:53 Alkaline Phosphatase 117 units/L (35-129) 10/27/20 07:53 Lactate Dehydrogenase 769 units/L (91-180) H 10/02/20 13:05 NT-Pro-B Natriuret Pep 2788 pg/mL (0-450) H 10/04/20 10:00 Total Protein 7.2 g/dL (6.3-8.2) 10/27/20 07:53 Albumin 3.8 g/dL (3.9-5) L 10/27/20 07:53 Albumin/Globulin Ratio 1.1 % 10/27/20 07:53 Procalcitonin 0.06 ng/mL (<0.15) 10/27/20 07:53 Arterial Blood Glucose 109 mg/dL (65-95) H 10/13/20 07:18 Arterial Blood Ionized Calcium 4.6 mg/dL (4.6-5.3) 10/13/20 07:18 Urine Color Yellow (Yellow) 10/11/20 13:26 Urine Turbidity Clear (Clear) 10/11/20 13:26 Urine pH 7.0 (5.0-7.0) 10/11/20 13:26 Ur Specific [place] 1.014 (1.003-1.030) 10/11/20 13:26 Urine Protein 100 mg/dl mg/dL (Negative) 10/11/20 13:26 Urine Glucose (UA) Neg mg/dL (Negative) 10/11/20 13:26 Urine Ketones Neg mg/dL (Negative) 10/11/20 13:26 Urine Blood Mod (Negative) 10/11/20 13:26 Urine Nitrite Neg (Negative) 10/11/20 13:26 Urine Bilirubin Neg (Negative) 10/11/20 13:26 Urine Urobilinogen < 2.0 mg/dL (<2.0) 10/11/20 13:26 Ur Leukocyte Esterase Sm (Negative) 10/11/20 13:26 Urine WBC (Auto) 24.0 /HPF (0.0-6.0) H 10/11/20 13:26 Urine RBC (Auto) 59.0 /HPF (0.0-6.0) 10/11/20 13:26 Urine Bacteria (Auto) 1+ /HPF (Negative) 10/11/20 13:26 Urine Mucus Few /HPF 10/11/20 13:26 Vancomycin Trough 12.6 ug/mL (5.0-20.0) 10/21/20 13:54 Random Vancomycin 10.7 ug/mL (0-40.0) 10/16/20 13:09 Phenytoin 5.7 ug/mL (10.0-20.0) L 10/13/20 07:00 C. difficile Tox (PCR) Positive (Negative) 10/16/20 10:22 Coronavirus (PCR) Negative (Negative) 10/08/20 14:15 Blood Type O POSITIVE 10/02/20 12:50 Antibody Screen Negative 10/02/20 12:50 Crossmatch See Detail 10/02/20 12:50 - Diagnostic Impressions Diagnostic Impressions: Echocardiogram 10/03/20 13:42 Transthoracic Echocardiogram Indication: S/P Cardiac Arrest R/O Cardiomyopathy BP: 133/71 Conclusions *Global left ventricular systolic function is normal. *The estimated ejection fraction is 60-65%. *There is trace of mitral regurgitation. *The right 0heart chambers are both slightly dilated. *There is mild tricuspid regurgitation. *There is mild-moderate pulmonary hypertension. *The right ventricular systolic pressure is calculated at 44 mmHg. *The study quality is technically difficult. Findings Procedure Info: The study quality is technically difficult. The study is technically limited due to patient body habitus. The study was technically limited due to the patient's inability to lay in the left lateral decubitus position. Left Ventricle: The left ventricular chamber size is normal. There is no left ventricular hypertrophy. Global left ventricular systolic function is normal. The estimated ejection fraction is 60-65%. Left Atrium: The left atrial chamber size is normal. Right Ventricle: The right ventricle is slightly dilated. Right Atrium: The right atrium is mildly dilated. Aortic Valve: The aortic valve leaflets are mildly thickened. There is no evidence of aortic regurgitation. There is no evidence of aortic stenosis. Mitral Valve: The mitral valve leaflets are mildly thickened. There is trace of mitral regurgitation. There is no evidence of mitral stenosis. Tricuspid Valve: There is mild tricuspid regurgitation. The right ventricular systolic pressure is calculated at 44 mmHg. There is evidence of mild pulmonary hypertension. Pulmonic Valve: There is trace pulmonic regurgitation. Pericardium: There is no pericardial effusion. Aorta: There is no dilatation of the ascending aorta. There is no dilatation of the aortic root. Venous: The inferior vena cava is dilated. Measurements Chambers 2D Name Value Normal Range IVSd (2D) 1 cm (0.6 - 1.1) LVPWd (2D) 1.01 cm (0.6 - 1.1) LVIDd (2D) 4.58 cm (3.7 - 5.6) LVIDs (2D) 3.17 cm (2 - 3.8) LV FS (2D) 30.93 % - EF Teichholz (2D) 58.66 % - Ao root diameter (2D) 2.94 cm (2 - 3.7) Volumes/Mass Name Value Normal Range LA ESV SP 4CH (A/L) 72.82 ml - LA ESV SP 2CH (A/L) 66.86 ml - LA ESV BP (A/L) 74.49 ml - LA ESV SP 4CH (MOD) 71.03 ml - LA ESV SP 2CH (MOD) 64.3 ml - LV EDV SP 4CH (MOD) 98.82 ml - LV ESV SP 4CH (MOD) 24.8 ml - EF SP 4CH (MOD) 74.9 % - LV EDV SP 2CH (MOD) 86.1 ml - LV ESV SP 2CH (MOD) 36.93 ml - EF SP 2CH (MOD) 57.11 % - LV EDV BP 94.4 ml - LV ESV BP 32.66 ml - BP EF (MOD) 65.4 % - Diastolic/Systolic Function Name Value Normal Range MV E-wave Vmax 1.04 m/sec - MV deceleration time 160.46 msec - MV A-wave Vmax 0.92 m/sec - MV E:A ratio 1.14 ratio - Aortic Valve Name Value Normal Range AV Vmax 2.12 m/sec - AV VTI 22.37 cm - AV peak gradient 17.95 mmHg - AV mean gradient 7.29 mmHg - LVOT diameter 2.01 cm - LVOT Vmax 1.8 m/sec - LVOT VTI 27.17 cm - LVOT peak gradient 12.91 mmHg - LVOT mean gradient 6.83 mmHg - SV LVOT 86.42 ml - ANITA (continuity Vmax) 2.7 cm2 - ANITA (continuity VTI) 3.86 cm2 - Ascending Ao 3.18 cm - Tricuspid Valve Name Value Normal Range TV E-wave Vmax 0.88 m/sec - TR Vmax 3.01 m/sec - TR peak gradient 36.27 mmHg - RAP 8 mmHg - RVSP 44 mmHg - IVC diameter 2.65 cm (1.2 - 2.3) Pulmonic Valve/Qp:Qs Name Value Normal Range PV Vmax 1.22 m/sec - PV peak gradient 5.91 mmHg - RVOT Vmax 0.87 m/sec - RVOT VTI 13.32 cm - RVOT peak gradient 3 mmHg - PV acceleration time 110.37 msec - [place]/IV: Voiding Method Indwelling Catheter IV Catheter Type [Right Foot] INT / Saline Lock IV Catheter Type [Left Forearm Peripheral IV ] IV Catheter Type [Left Wrist] INT / Saline Lock IV Catheter Type [Right Hand] INT / Saline Lock IV Catheter Type [Right INT / Saline Lock Antecubital] IV Catheter Type [Right Upper INT / Saline Lock arm] IV Catheter Type [Left Triple Lumen Cath Internal Jugular] IV Catheter Type [Left Hand] Peripheral IV IV Catheter Type [Left Peripheral IV Antecubital] Active Medications - Current Medications Current Medications: Generic Name Dose Route Start Last Admin Trade Name Freq PRN Reason Stop Dose Admin Acetaminophen 650 mg 10/05/20 16:34 10/16/20 00:13 Acetaminophen 325 Mg/10.15 Ml Oral Liqd Unit Dose FEEDTUBE 650 mg Q6H PRN Administration Non Cardiac Pain or Temp>100.5 Lipase/Protease/Amylase 1 each 10/05/20 11:09 Lipase 10,500/Protease 25,000/Amylase 43,750 (Units) Dr Barakat FEEDTUBE PRN PRN For Clogged Feeding Tube Enoxaparin Sodium 40 mg 10/22/20 10:00 10/30/20 09:05 Enoxaparin 40 Mg/0.4 Ml Inj SUB-Q 40 mg DAILY ERINN Administration Protocol Famotidine 20 mg 10/07/20 10:00 10/30/20 09:05 Famotidine 20 Mg Tab PO 20 mg BID ERINN Administration Furosemide 40 mg 10/17/20 10:00 10/30/20 09:05 Furosemide 40 Mg Tab PO 40 mg QDAY ERINN Administration Glycopyrrolate 1 mg 10/20/20 10:00 10/30/20 09:05 Glycopyrrolate 1 Mg Tab PO 1 mg BID ERINN Administration Hydralazine HCl 20 mg 10/07/20 11:49 10/17/20 07:20 Hydralazine 20 Mg/1 Ml Inj IV 20 mg Q6H PRN Administration SBP >170 Hydralazine HCl 50 mg 10/17/20 09:00 10/30/20 13:34 Hydralazine 25 Mg Tab PO 50 mg Q8HR ERINN Administration Hydrophilic Ointment 1 applic 10/04/20 06:55 Lip Therapy Vaseline TP Q2HR PRN Dry Lips Dextrose 1,000 mls @ 75 mls/hr 10/13/20 11:00 10/30/20 10:01 D10w IV 50 mls/hr DIRECT ERINN Administration Labetalol HCl 300 mg 10/17/20 09:00 10/30/20 13:34 Labetalol 100 Mg Tab PO 300 mg TID ERINN Administration Multi-Ingred Cream/Lotion/Oil/Oint 1 applic 10/04/20 06:55 Mineral Oil/Petrolatum, White Ophth Oint 3.5 Gm OU Q4HR PRN Dry Eye(s) Simple Syrup 15 ml 10/05/20 11:09 Simple Syrup 15 Ml FEEDTUBE PRN PRN Hypoglycemia Simple Syrup 30 ml 10/05/20 11:09 Simple Syrup 15 Ml FEEDTUBE PRN PRN Hypoglycemia Sodium Bicarbonate 325 mg 10/05/20 11:09 Sodium Bicarbonate 325 Mg Tab FEEDTUBE PRN PRN For Clogged Feeding Tube Sodium Bicarbonate 1,300 mg 10/13/20 14:00 10/30/20 13:34 Sodium Bicarbonate 650 Mg Tab PO 1,300 mg TID ERINN Administration Topiramate 50 mg 10/05/20 11:00 10/30/20 09:05 Topiramate Tab 25 Mg Tab PO 50 mg Q12HR ERINN Administration Nutrition/Malnutrition Assess - Dietary Evaluation Nutrition/Malnutrition Findings: Nutrition Notes Start: 10/04/20 11:13 Freq: Status: Active Protocol: Document 10/30/20 14:24 CW (Rec: 10/30/20 14:39 CW [email or web address]) Co-Sign 10/30/20 14:24 LP Nutrition Notes Initial or Follow up Reassessment Current Diagnosis Acute Kidney Injury, Respiratory Failure Other Pertinent Diagnosis Cardiac arrest, s/p c-sectuion and supracervial hysterectomy Current Diet Promote at 75ml/hr Labs/Tests Phos 4.7 BG 99 Pertinent Medications lasix D10w at 50ml/hr Height 5 ft 8 in Weight 111.2 kg Cosmos Body Weight (kg) 63.63 BMI 37.3 Weight change and time frame Wt change noted, pt on lasix Weight Status Morbidly Obese Subjective/Other Information FU for TF tolerance, BG labs. Pt remains intubated with TF running at goal. Per RD/MD discussion, will try changing pt TF formula to help regulate BG and wean off D10w. Percent of energy/protein needs met: 100%/74% Burn Absent Trauma Absent GI Symptoms None Food Allergy Yes Current % PO Negligible Minimum of two criteria No Fluid Accumulation Mild (non-severe) #1 Nutrition Diagnosis Inadequate oral intake Diagnosis Progress(for reassessment Continues documentation) Is patient on ventilator? Yes Is Patient Ambulatory and/or Out of Bed No REE-([facility]-confined to bed) 2246.340 Kcal/Kg value to use for calculation 16 Approximate Energy Requirements Using 1779 kcal/Kg Calculation Used for Recommendations Kcal/kg Additional Notes Protein needs are up to 159g ( up to 2.5g/kg IBW) Fluid needs are 1ml/kcal Nutrition Intervention Change Diet Order: Change TF formula Nutrition Support: Jevity 1.2 at 60ml/hr. Flush 100ml q4h. Kcal 1,782 Protein (gm) 87 Fluid (mL) 1,259 Goal #1 TF tolerance Goal #2 Meet at least 75% of energy and protein needs Anticipated Discharge Needs: Unable to determine at this time Follow-Up By: 11/02/20 Additional Comments FU for new TF order, BG labs
[2020-10-31] MEDS: DEXTROSE 10% IN WATER 1,000 ML IV SCH ×2 (00:11→19:12)
[2020-10-31] MEDS: hydrALAZINE 25 MG TAB PO SCH ×3 (05:08→23:19)
[2020-10-31] MEDS: ENOXAPARIN 40 MG/0.4 ML INJ SUB-Q SCH (09:30)
[2020-10-31] MEDS: TOPIRAMATE TAB 25 MG TAB PO SCH ×2 (09:30→23:19)
[2020-10-31] MEDS: GLYCOPYRROLATE 1 MG TAB PO SCH ×2 (09:31→23:18)
[2020-10-31] MEDS: SODIUM BICARBONATE 650 MG TAB PO SCH ×3 (09:31→23:24)
[2020-10-31] MEDS: FAMOTIDINE 20 MG TAB PO SCH ×2 (09:32→23:18)
[2020-10-31] MEDS: FUROSEMIDE 40 MG TAB PO SCH (09:32)
--- NOTE | 2020-10-31 11:27 | Progress Note ---
Assessment and Plan 30 y/o female with Eclampsia, s/p emergent section with DIC, acute respiratory failure and worsening renal function. 10/31/20: Will order midline for IV team vs peripheral IV's (multiple). Needs access for d10 as we have not been able to figure out why she is so hypoglyemic. Will measure serum insulin levels and C-peptide levels, as well proinsulin. All of these labs are sendouts so will have to call down to ask how to order as they are not coming up in [facility]. Given her requirement for supplemental IV sugar, not a candidate for floor transfer. 10/30/20: Continue step down monitoring for now. If does well the next 24-36 hours, then will consider floor transfer. Really needs to continue PT with P ROM. Will speak with CM about options for here now that critical needs are becoming minimal. 10/29/20: Off vent now for 24 hours. Tolerating T-Piece. Will transition to step down for a few days. If does well there, consider transition to floor. Continue PT. 10/28/20: Daily T-piece trials for as long as tolerated. Attempt to push further daily. OT does not do passive range of motion. Per PT note will do passive range of motion with patient. Guarded prognosis. Hoping to wean off vent and transition to floor. 10/27/20: Continue daily T-piece trials for as long as tolerated. Ok with resting on either PSV or full rate if needed at night but need to strengthen her respiratory muscles. PT/OT if possible. Will transition to step down prior to going to floor to insure stability. 10/26/20: Will obtain ABG today. If good, will attempt on T-piece later. Continue PT/OT. Will speak with CM about possibility of LTACH or nursing facility that can take trached patients. 10/23/20: Daily PSV trials for as long as patient will tolerate. Needs PT/OT consult for passive range of motion. 10/22/20: Will start prolonged PSV trials. Attempt to wean from vent and then transition to floor to see if mental status improves. Continue tube feeds. 10/21/20: Trach and peg placed. No sedation. Restart Lovenox for Upper Ext DVT. Restart feeds when surgery states ok to use PEG. C. Diff treatment per ID. Guarded prognosis. Will be a fpc wean. Hopeful to wean off vent at least and then can transfer to floor. 10/20/20: NPO after midnight. DVT study just read from 10/14 on yesterday showing upper ext DVT. Started on Lovenox but need to hold therapy until after surgery. could be source of fevers. No sedation. 10/19/20: Stable BP. Will meet/talk with family at noon over the phone with myself and case management. Need to discuss goals of care and what next steps would be. Patient would need trach and peg and transfer to LTACH if family ok with this. Follow up speciation of GNR's in blood. Has been on Cefepime. Continues therapy for C. Diff. Guarded prognosis. Continue daily PSV trials but not ready for extubation secondary to mental state. 10/18/20: Blood pressure is much better with the addition of meds started on yesterday. Need to have family meeting jesica in regards to goals of care. Continue Daily PSV trials but not ready for extubation. Continue therapy for C. Diff per ID. 10/17/20: CT scan was of no help in regards to fevers. C. Diff is positive and BP now is more uncontrolled despite increasing labetalol. Today will increase to 300 TID. Added TID Hydralazine and added PO lasix given her mild pulmonary htn seen on echo. Spoke with mother over the phone and she requests to come see the patient. Given current circumstances, will allow her to come briefly today and then will speak with her at the bedside. No neurology is available at the time and suspect these will be the majority of her questions. Tolerated PSV briefly yesterday and will do again today but not for extended periods as given her mental state she is not a candidate for extubation. I will also ask the mother about fpc care (trach and peg) when she comes today. Overall prognosis is guarded to poor. If oral meds cannot regulate blood pressure, may need Cardene drip. Continue therapy for C. Diff per ID. Subjective Date of service: 10/31/20 Principal diagnosis: Eclampsia/HELLP Syndrome, ADOLPH, DIC; s/p , s/p supracervical hyst Interval history: No acute events. Asleep currently. Nursing has no IVF access at this point for D10. Objective Vital Signs - 12hr 10/30/20 10/31/20 10/31/20 23:30 00:00 00:04 Temperature 98.8 F Pulse Rate 101 H 94 H Pulse Rate [ 107 H From Monitor] Respiratory 35 H 23 Rate Blood Pressure 121/65 122/68 O2 Sat by Pulse 100 98 100 Oximetry 10/31/20 10/31/20 10/31/20 01:00 02:00 03:00 Temperature Pulse Rate 109 H 97 H 109 H Pulse Rate [ From Monitor] Respiratory 41 H 21 32 H Rate Blood Pressure 129/64 122/74 128/73 O2 Sat by Pulse 98 98 Oximetry 10/31/20 10/31/20 10/31/20 04:00 05:00 05:08 Temperature 98.8 F Pulse Rate 109 H 108 H 112 H Pulse Rate [ 109 H From Monitor] Respiratory 27 H 18 Rate Blood Pressure 119/69 116/67 116/67 O2 Sat by Pulse 100 98 Oximetry 10/31/20 10/31/20 06:00 09:31 Temperature Pulse Rate 112 H 118 H Pulse Rate [ From Monitor] Respiratory 32 H Rate Blood Pressure 119/61 128/68 O2 Sat by Pulse 98 Oximetry Constitutional: comatose, other (critically ill on ventilator trach) Eyes: non-icteric ENT: oropharynx moist, other (orally intubated and not sedated) Neck: other (large in cirumference) Effort: normal Ascultation: Bilateral: clear, diminished breath sounds, other (coarse BS bilaterally w/ mild faint wheezes) Percussion: Bilateral: not dull Cardiovascular: regular rate and rhythm, other (no mrg) Gastrointestinal: normoactive bowel sounds, soft, other (post surgical changes with drain on the left side) Extremities: no cyanosis, pink and warm, anasarca Neurologic: other (unresponsive, not following commands, not tracking) Psychiatric: other (unable to assess) CBC and BMP: 10/29/20 07:56 10/29/20 07:56 ABG, PT/INR, D-dimer: ABG ABG pH 7.459 pH Units (7.350-7.450) H 10/26/20 10:30 POC ABG pCO2 20.7 mmHg (32.0-48.0) L 10/13/20 07:18 ABG pCO2 32.4 mm Hg 10/26/20 10:30 POC ABG pO2 137.9 mmHg (83-108) H 10/13/20 07:18 ABG pO2 112.2 mm Hg (80.0-90.0) H 10/26/20 10:30 POC ABG HCO3 14.8 10/13/20 07:18 ABG O2 Saturation 98.2 % (95.0-99.0) 10/26/20 10:30 PT/INR, D-dimer PT 13.6 Sec. (12.2-14.9) 10/21/20 13:54 INR 1.06 (0.87-1.13) 10/21/20 13:54 D-Dimer > 41480 ng/mlDDU (0-234) H 10/04/20 10:00 Abnormal lab findings: Abnormal Labs 10/02/20 10/02/20 10/02/20 12:03 12:18 12:18 WBC 14.9 H RBC Hgb 9.1 L Hct MCV MCH 22 L MCHC 28 L RDW 17.6 H Plt Count 102 L Lymph % (Auto) [place] % (Auto) Lymph # (Auto) [place] # (Auto) Baso # (Auto) Seg Neutrophils % Seg Neuts % (Manual) 36.0 L Lymphocytes % (Manual) 49.0 H Monocytes % (Manual) Nucleated RBC % 6.0 H Seg Neutrophils # Seg Neutrophils # Man Lymphocytes # (Manual) 7.3 H Monocytes # (Manual) PT INR APTT Fibrinogen D-Dimer ABG pH POC ABG pCO2 POC ABG pO2 ABG pO2 ABG HCO3 ABG Base Excess ABG Hemoglobin ABG Oxyhemoglobin ABG Sodium ABG Potassium ABG Chloride ABG Glucose VBG pH Oxyhemoglobin Carboxyhemoglobin Sodium 134 L Potassium Chloride Carbon Dioxide 12 L BUN 6 L Creatinine Glucose 390 H POC Glucose 451 H Lactic Acid Calcium Ionized Calcium Phosphorus Magnesium AST 135 H ALT 85 H Alkaline Phosphatase 172 H Lactate Dehydrogenase 641 H NT-Pro-B Natriuret Pep Total Protein 5.4 L Albumin 2.3 L Arterial Blood Glucose Arterial Blood Ionized Calcium Urine WBC (Auto) Vancomycin Trough Phenytoin Crossmatch 10/02/20 10/02/20 10/02/20 12:50 13:05 13:05 WBC 38.6 H RBC Hgb 8.9 L Hct 29.0 L MCV 73 L MCH 22 L MCHC RDW 17.2 H Plt Count Lymph % (Auto) [place] % (Auto) Lymph # (Auto) [place] # (Auto) Baso # (Auto) Seg Neutrophils % Seg Neuts % (Manual) Lymphocytes % (Manual) Monocytes % (Manual) Nucleated RBC % 2.0 H Seg Neutrophils # Seg Neutrophils # Man 20.1 H Lymphocytes # (Manual) 10.4 H Monocytes # (Manual) 2.3 H PT INR APTT Fibrinogen D-Dimer ABG pH POC ABG pCO2 POC ABG pO2 ABG pO2 ABG HCO3 ABG Base Excess ABG Hemoglobin ABG Oxyhemoglobin ABG Sodium ABG Potassium ABG Chloride ABG Glucose VBG pH Oxyhemoglobin Carboxyhemoglobin Sodium Potassium Chloride Carbon Dioxide BUN Creatinine Glucose POC Glucose Lactic Acid Calcium Ionized Calcium Phosphorus Magnesium AST 184 H ALT 113 H Alkaline Phosphatase Lactate Dehydrogenase 769 H NT-Pro-B Natriuret Pep Total Protein Albumin Arterial Blood Glucose Arterial Blood Ionized Calcium Urine WBC (Auto) Vancomycin Trough Phenytoin Crossmatch See Detail 10/02/20 10/02/20 10/02/20 16:25 16:35 16:35 WBC RBC Hgb Hct MCV MCH MCHC RDW Plt Count Lymph % (Auto) [place] % (Auto) Lymph # (Auto) [place] # (Auto) Baso # (Auto) Seg Neutrophils % Seg Neuts % (Manual) Lymphocytes % (Manual) Monocytes % (Manual) Nucleated RBC % Seg Neutrophils # Seg Neutrophils # Man Lymphocytes # (Manual) Monocytes # (Manual) PT INR APTT Fibrinogen D-Dimer ABG pH 7.031 L* POC ABG pCO2 POC ABG pO2 ABG pO2 116.8 H ABG HCO3 12.7 L ABG Base Excess -16.9 L ABG Hemoglobin 7.8 L ABG Oxyhemoglobin ABG Sodium ABG Potassium ABG Chloride ABG Glucose VBG pH Oxyhemoglobin 94.9 L Carboxyhemoglobin Sodium Potassium Chloride Carbon Dioxide BUN Creatinine Glucose 403 H POC Glucose Lactic Acid 11.40 H* Calcium 6.3 L D Ionized Calcium Phosphorus Magnesium AST 70 H ALT Alkaline Phosphatase Lactate Dehydrogenase NT-Pro-B Natriuret Pep Total Protein 1.9 L D Albumin 1.2 L Arterial Blood Glucose Arterial Blood Ionized Calcium Urine WBC (Auto) Vancomycin Trough Phenytoin Crossmatch 10/02/20 10/02/20 10/02/20 18:18 18:18 22:30 WBC 11.5 H RBC 2.06 L Hgb 5.5 L* D Hct 17.3 L* D MCV MCH 27 L MCHC RDW 19.5 H Plt Count 60 L Lymph % (Auto) [place] % (Auto) Lymph # (Auto) [place] # (Auto) Baso # (Auto) Seg Neutrophils % Seg Neuts % (Manual) Lymphocytes % (Manual) 8.0 L Monocytes % (Manual) 8.0 H Nucleated RBC % 8.0 H Seg Neutrophils # Seg Neutrophils # Man Lymphocytes # (Manual) 0.9 L Monocytes # (Manual) 0.9 H PT 37.1 H INR 3.71 H APTT 135.8 H* Fibrinogen D-Dimer ABG pH 7.067 L* POC ABG pCO2 POC ABG pO2 ABG pO2 183.0 H ABG HCO3 14.1 L ABG Base Excess -15.1 L ABG Hemoglobin 7.7 L ABG Oxyhemoglobin ABG Sodium ABG Potassium ABG Chloride ABG Glucose VBG pH Oxyhemoglobin Carboxyhemoglobin Sodium Potassium Chloride Carbon Dioxide BUN Creatinine Glucose POC Glucose Lactic Acid Calcium Ionized Calcium Phosphorus Magnesium AST ALT Alkaline Phosphatase Lactate Dehydrogenase NT-Pro-B Natriuret Pep Total Protein Albumin Arterial Blood Glucose Arterial Blood Ionized Calcium Urine WBC (Auto) Vancomycin Trough Phenytoin Crossmatch 10/02/20 10/02/20 10/03/20 Unknown Unknown 00:01 WBC RBC Hgb Hct MCV MCH MCHC RDW Plt Count Lymph % (Auto) [place] % (Auto) Lymph # (Auto) [place] # (Auto) Baso # (Auto) Seg Neutrophils % Seg Neuts % (Manual) Lymphocytes % (Manual) Monocytes % (Manual) Nucleated RBC % Seg Neutrophils # Seg Neutrophils # Man Lymphocytes # (Manual) Monocytes # (Manual) PT 61.1 H INR 6.92 H* APTT 158.7 H* Fibrinogen < 60 L* D-Dimer > 82578 H ABG pH POC ABG pCO2 POC ABG pO2 ABG pO2 ABG HCO3 ABG Base Excess ABG Hemoglobin ABG Oxyhemoglobin ABG Sodium ABG Potassium ABG Chloride ABG Glucose VBG pH 6.949 L* Oxyhemoglobin Carboxyhemoglobin Sodium Potassium Chloride Carbon Dioxide BUN Creatinine Glucose POC Glucose 196 H Lactic Acid Calcium Ionized Calcium Phosphorus Magnesium AST ALT Alkaline Phosphatase Lactate Dehydrogenase NT-Pro-B Natriuret Pep Total Protein Albumin Arterial Blood Glucose Arterial Blood Ionized Calcium Urine WBC (Auto) Vancomycin Trough Phenytoin Crossmatch 10/03/20 10/03/20 10/03/20 00:40 00:40 00:40 WBC RBC Hgb Hct MCV MCH MCHC RDW Plt Count Lymph % (Auto) [place] % (Auto) Lymph # (Auto) [place] # (Auto) Baso # (Auto) Seg Neutrophils % Seg Neuts % (Manual) Lymphocytes % (Manual) Monocytes % (Manual) Nucleated RBC % Seg Neutrophils # Seg Neutrophils # Man Lymphocytes # (Manual) Monocytes # (Manual) PT 15.1 H INR 1.21 H APTT Fibrinogen D-Dimer ABG pH POC ABG pCO2 POC ABG pO2 ABG pO2 ABG HCO3 ABG Base Excess ABG Hemoglobin ABG Oxyhemoglobin ABG Sodium ABG Potassium ABG Chloride ABG Glucose VBG pH Oxyhemoglobin Carboxyhemoglobin Sodium 136 L Potassium Chloride Carbon Dioxide BUN Creatinine 1.6 H D Glucose 106 H POC Glucose Lactic Acid 5.60 H* Calcium 6.5 L Ionized Calcium Phosphorus Magnesium AST 232 H ALT 104 H Alkaline Phosphatase Lactate Dehydrogenase NT-Pro-B Natriuret Pep Total Protein 3.9 L D Albumin 2.4 L Arterial Blood Glucose Arterial Blood Ionized Calcium Urine WBC (Auto) Vancomycin Trough Phenytoin Crossmatch 10/03/20 10/03/20 10/03/20 02:08 02:08 02:08 WBC 17.6 H RBC 3.27 L Hgb 9.9 L D Hct 29.9 L D MCV MCH MCHC RDW 16.5 H Plt Count 75 L Lymph % (Auto) [place] % (Auto) Lymph # (Auto) [place] # (Auto) Baso # (Auto) Seg Neutrophils % Seg Neuts % (Manual) 76.0 H Lymphocytes % (Manual) Monocytes % (Manual) Nucleated RBC % 8.0 H Seg Neutrophils # Seg Neutrophils # Man 13.4 H Lymphocytes # (Manual) Monocytes # (Manual) PT INR APTT Fibrinogen D-Dimer ABG pH POC ABG pCO2 POC ABG pO2 ABG pO2 ABG HCO3 ABG Base Excess ABG Hemoglobin ABG Oxyhemoglobin ABG Sodium ABG Potassium ABG Chloride ABG Glucose VBG pH Oxyhemoglobin Carboxyhemoglobin Sodium Potassium Chloride Carbon Dioxide 19 L BUN Creatinine 1.4 H Glucose 306 H POC Glucose Lactic Acid 10.50 H* Calcium 6.4 L Ionized Calcium Phosphorus Magnesium AST ALT Alkaline Phosphatase Lactate Dehydrogenase NT-Pro-B Natriuret Pep Total Protein Albumin Arterial Blood Glucose Arterial Blood Ionized Calcium Urine WBC (Auto) Vancomycin Trough Phenytoin Crossmatch 10/03/20 10/03/20 10/03/20 02:42 03:59 05:31 WBC RBC Hgb Hct MCV MCH MCHC RDW Plt Count Lymph % (Auto) [place] % (Auto) Lymph # (Auto) [place] # (Auto) Baso # (Auto) Seg Neutrophils % Seg Neuts % (Manual) Lymphocytes % (Manual) Monocytes % (Manual) Nucleated RBC % Seg Neutrophils # Seg Neutrophils # Man Lymphocytes # (Manual) Monocytes # (Manual) PT INR APTT Fibrinogen D-Dimer ABG pH 7.144 L POC ABG pCO2 54.4 H POC ABG pO2 ABG pO2 ABG HCO3 ABG Base Excess ABG Hemoglobin 10.0 L ABG Oxyhemoglobin ABG Sodium ABG Potassium ABG Chloride 108.0 H ABG Glucose 306 H VBG pH Oxyhemoglobin Carboxyhemoglobin Sodium Potassium Chloride Carbon Dioxide BUN Creatinine Glucose POC Glucose 209 H Lactic Acid 9.20 H* Calcium Ionized Calcium Phosphorus Magnesium AST ALT Alkaline Phosphatase Lactate Dehydrogenase NT-Pro-B Natriuret Pep Total Protein Albumin Arterial Blood Glucose 306 H Arterial Blood Ionized Calcium 3.7 L Urine WBC (Auto) Vancomycin Trough Phenytoin Crossmatch 10/03/20 10/03/20 10/03/20 09:00 09:00 09:00 WBC 27.4 H RBC 2.84 L Hgb 8.5 L Hct 25.1 L MCV MCH MCHC RDW 16.1 H Plt Count 72 L Lymph % (Auto) [place] % (Auto) Lymph # (Auto) [place] # (Auto) Baso # (Auto) Seg Neutrophils % Seg Neuts % (Manual) Lymphocytes % (Manual) 11.0 L Monocytes % (Manual) Nucleated RBC % 3.0 H Seg Neutrophils # Seg Neutrophils # Man 18.4 H Lymphocytes # (Manual) Monocytes # (Manual) 1.9 H PT INR APTT Fibrinogen D-Dimer ABG pH POC ABG pCO2 POC ABG pO2 ABG pO2 ABG HCO3 ABG Base Excess ABG Hemoglobin ABG Oxyhemoglobin ABG Sodium ABG Potassium ABG Chloride ABG Glucose VBG pH Oxyhemoglobin Carboxyhemoglobin Sodium Potassium Chloride Carbon Dioxide BUN Creatinine 1.7 H Glucose 216 H POC Glucose Lactic Acid 9.20 H* Calcium 6.3 L Ionized Calcium Phosphorus Magnesium AST 331 H ALT 171 H Alkaline Phosphatase Lactate Dehydrogenase NT-Pro-B Natriuret Pep Total Protein 3.7 L Albumin 1.9 L Arterial Blood Glucose Arterial Blood Ionized Calcium Urine WBC (Auto) Vancomycin Trough Phenytoin Crossmatch 10/03/20 10/03/20 10/03/20 11:20 11:46 11:50 WBC 28.7 H RBC 2.67 L Hgb 8.0 L Hct 23.7 L MCV MCH MCHC RDW 16.6 H Plt Count 76 L Lymph % (Auto) [place] % (Auto) Lymph # (Auto) [place] # (Auto) Baso # (Auto) Seg Neutrophils % Seg Neuts % (Manual) Lymphocytes % (Manual) Monocytes % (Manual) Nucleated RBC % Seg Neutrophils # Seg Neutrophils # Man Lymphocytes # (Manual) Monocytes # (Manual) PT INR APTT Fibrinogen D-Dimer ABG pH POC ABG pCO2 POC ABG pO2 ABG pO2 ABG HCO3 ABG Base Excess ABG Hemoglobin ABG Oxyhemoglobin ABG Sodium ABG Potassium ABG Chloride ABG Glucose VBG pH Oxyhemoglobin Carboxyhemoglobin Sodium Potassium Chloride Carbon Dioxide BUN Creatinine Glucose POC Glucose 125 H Lactic Acid 8.00 H* Calcium Ionized Calcium Phosphorus Magnesium AST ALT Alkaline Phosphatase Lactate Dehydrogenase NT-Pro-B Natriuret Pep Total Protein Albumin Arterial Blood Glucose Arterial Blood Ionized Calcium Urine WBC (Auto) Vancomycin Trough Phenytoin Crossmatch 10/03/20 10/04/20 10/04/20 11:50 00:40 00:40 WBC RBC Hgb 6.8 L Hct 19.4 L* MCV MCH MCHC RDW Plt Count 49 L Lymph % (Auto) [place] % (Auto) Lymph # (Auto) [place] # (Auto) Baso # (Auto) Seg Neutrophils % Seg Neuts % (Manual) Lymphocytes % (Manual) Monocytes % (Manual) Nucleated RBC % Seg Neutrophils # Seg Neutrophils # Man Lymphocytes # (Manual) Monocytes # (Manual) PT INR APTT Fibrinogen D-Dimer ABG pH 7.244 L POC ABG pCO2 POC ABG pO2 ABG pO2 ABG HCO3 ABG Base Excess -4.5 L ABG Hemoglobin 7.3 L ABG Oxyhemoglobin ABG Sodium ABG Potassium ABG Chloride ABG Glucose VBG pH Oxyhemoglobin Carboxyhemoglobin Sodium Potassium Chloride Carbon Dioxide BUN Creatinine Glucose POC Glucose Lactic Acid Calcium Ionized Calcium Phosphorus Magnesium AST ALT Alkaline Phosphatase Lactate Dehydrogenase NT-Pro-B Natriuret Pep Total Protein Albumin Arterial Blood Glucose Arterial Blood Ionized Calcium Urine WBC (Auto) Vancomycin Trough Phenytoin Crossmatch 10/04/20 10/04/20 10/04/20 03:53 10:00 10:00 WBC 14.6 H RBC 2.57 L Hgb 7.6 L Hct 22.5 L MCV MCH MCHC RDW 15.8 H Plt Count 38 L Lymph % (Auto) 7.7 L [place] % (Auto) Lymph # (Auto) 1.1 L [place] # (Auto) 0.9 H Baso # (Auto) Seg Neutrophils % 85.6 H Seg Neuts % (Manual) Lymphocytes % (Manual) Monocytes % (Manual) Nucleated RBC % Seg Neutrophils # 12.5 H Seg Neutrophils # Man Lymphocytes # (Manual) Monocytes # (Manual) PT INR APTT Fibrinogen D-Dimer ABG pH POC ABG pCO2 POC ABG pO2 110.6 H ABG pO2 ABG HCO3 ABG Base Excess ABG Hemoglobin 6.7 L ABG Oxyhemoglobin ABG Sodium 132.0 L ABG Potassium ABG Chloride ABG Glucose 111 H VBG pH Oxyhemoglobin Carboxyhemoglobin Sodium 134 L D Potassium Chloride 97.6 L Carbon Dioxide BUN Creatinine 1.7 H Glucose POC Glucose Lactic Acid Calcium 6.3 L Ionized Calcium Phosphorus Magnesium AST 203 H ALT 81 H Alkaline Phosphatase Lactate Dehydrogenase NT-Pro-B Natriuret Pep Total Protein 3.9 L Albumin 2.3 L Arterial Blood Glucose 111 H Arterial Blood Ionized Calcium 3.5 L Urine WBC (Auto) Vancomycin Trough Phenytoin Crossmatch 10/04/20 10/04/20 10/04/20 10:00 10:00 10:14 WBC RBC Hgb Hct MCV MCH MCHC RDW Plt Count Lymph % (Auto) [place] % (Auto) Lymph # (Auto) [place] # (Auto) Baso # (Auto) Seg Neutrophils % Seg Neuts % (Manual) Lymphocytes % (Manual) Monocytes % (Manual) Nucleated RBC % Seg Neutrophils # Seg Neutrophils # Man Lymphocytes # (Manual) Monocytes # (Manual) PT INR APTT Fibrinogen D-Dimer > 13652 H ABG pH POC ABG pCO2 POC ABG pO2 ABG pO2 ABG HCO3 ABG Base Excess ABG Hemoglobin ABG Oxyhemoglobin ABG Sodium ABG Potassium ABG Chloride ABG Glucose VBG pH Oxyhemoglobin Carboxyhemoglobin Sodium Potassium Chloride Carbon Dioxide BUN Creatinine Glucose POC Glucose Lactic Acid 3.90 H* Calcium Ionized Calcium Phosphorus Magnesium AST ALT Alkaline Phosphatase Lactate Dehydrogenase NT-Pro-B Natriuret Pep 2788 H Total Protein Albumin Arterial Blood Glucose Arterial Blood Ionized Calcium Urine WBC (Auto) Vancomycin Trough Phenytoin Crossmatch 10/04/20 10/04/20 10/04/20 14:00 14:00 18:00 WBC 15.7 H RBC 3.17 L Hgb 9.3 L 9.6 L Hct 27.2 L 28.0 L MCV MCH MCHC RDW 16.9 H Plt Count 41 L Lymph % (Auto) 8.6 L [place] % (Auto) Lymph # (Auto) [place] # (Auto) 0.9 H Baso # (Auto) Seg Neutrophils % 85.4 H Seg Neuts % (Manual) Lymphocytes % (Manual) Monocytes % (Manual) Nucleated RBC % Seg Neutrophils # 13.4 H Seg Neutrophils # Man Lymphocytes # (Manual) Monocytes # (Manual) PT INR APTT Fibrinogen D-Dimer ABG pH POC ABG pCO2 POC ABG pO2 ABG pO2 ABG HCO3 ABG Base Excess ABG Hemoglobin ABG Oxyhemoglobin ABG Sodium ABG Potassium ABG Chloride ABG Glucose VBG pH Oxyhemoglobin Carboxyhemoglobin Sodium 133 L Potassium Chloride 96.4 L Carbon Dioxide BUN 18 H Creatinine 1.7 H Glucose POC Glucose Lactic Acid Calcium 6.3 L Ionized Calcium Phosphorus Magnesium AST ALT Alkaline Phosphatase Lactate Dehydrogenase NT-Pro-B Natriuret Pep Total Protein Albumin Arterial Blood Glucose Arterial Blood Ionized Calcium Urine WBC (Auto) Vancomycin Trough Phenytoin Crossmatch 10/04/20 10/04/20 10/05/20 18:00 22:00 05:00 WBC 17.6 H RBC 3.34 L Hgb 9.9 L Hct 29.4 L MCV MCH MCHC RDW 17.1 H Plt Count 56 L Lymph % (Auto) 8.5 L [place] % (Auto) Lymph # (Auto) [place] # (Auto) 1.0 H Baso # (Auto) Seg Neutrophils % 85.1 H Seg Neuts % (Manual) Lymphocytes % (Manual) Monocytes % (Manual) Nucleated RBC % Seg Neutrophils # 15.0 H Seg Neutrophils # Man Lymphocytes # (Manual) Monocytes # (Manual) PT INR APTT Fibrinogen D-Dimer ABG pH POC ABG pCO2 POC ABG pO2 ABG pO2 ABG HCO3 ABG Base Excess ABG Hemoglobin ABG Oxyhemoglobin ABG Sodium ABG Potassium ABG Chloride ABG Glucose VBG pH Oxyhemoglobin Carboxyhemoglobin Sodium 136 L Potassium Chloride Carbon Dioxide BUN 18 H Creatinine 1.7 H Glucose POC Glucose Lactic Acid 2.30 H* Calcium 6.6 L Ionized Calcium Phosphorus Magnesium AST ALT Alkaline Phosphatase Lactate Dehydrogenase NT-Pro-B Natriuret Pep Total Protein Albumin Arterial Blood Glucose Arterial Blood Ionized Calcium Urine WBC (Auto) Vancomycin Trough Phenytoin Crossmatch 10/05/20 10/05/20 10/05/20 05:00 05:00 05:03 WBC RBC Hgb Hct MCV MCH MCHC RDW Plt Count Lymph % (Auto) [place] % (Auto) Lymph # (Auto) [place] # (Auto) Baso # (Auto) Seg Neutrophils % Seg Neuts % (Manual) Lymphocytes % (Manual) Monocytes % (Manual) Nucleated RBC % Seg Neutrophils # Seg Neutrophils # Man Lymphocytes # (Manual) Monocytes # (Manual) PT INR APTT Fibrinogen D-Dimer ABG pH 7.458 H POC ABG pCO2 POC ABG pO2 ABG pO2 74.3 L ABG HCO3 27.5 H ABG Base Excess 3.4 H ABG Hemoglobin 10.0 L ABG Oxyhemoglobin ABG Sodium ABG Potassium ABG Chloride ABG Glucose VBG pH Oxyhemoglobin 94.9 L Carboxyhemoglobin Sodium Potassium Chloride Carbon Dioxide BUN 19 H Creatinine 1.8 H Glucose POC Glucose Lactic Acid Calcium 6.8 L Ionized Calcium 3.9 L Phosphorus Magnesium AST 225 H ALT 85 H Alkaline Phosphatase Lactate Dehydrogenase NT-Pro-B Natriuret Pep Total Protein 4.5 L Albumin 2.7 L Arterial Blood Glucose Arterial Blood Ionized Calcium Urine WBC (Auto) Vancomycin Trough Phenytoin Crossmatch 10/05/20 10/05/20 10/05/20 10:10 15:00 19:40 WBC RBC Hgb Hct MCV MCH MCHC RDW Plt Count Lymph % (Auto) [place] % (Auto) Lymph # (Auto) [place] # (Auto) Baso # (Auto) Seg Neutrophils % Seg Neuts % (Manual) Lymphocytes % (Manual) Monocytes % (Manual) Nucleated RBC % Seg Neutrophils # Seg Neutrophils # Man Lymphocytes # (Manual) Monocytes # (Manual) PT INR APTT Fibrinogen D-Dimer ABG pH POC ABG pCO2 POC ABG pO2 ABG pO2 ABG HCO3 ABG Base Excess ABG Hemoglobin ABG Oxyhemoglobin ABG Sodium ABG Potassium ABG Chloride ABG Glucose VBG pH Oxyhemoglobin Carboxyhemoglobin Sodium Potassium 3.5 L Chloride Carbon Dioxide 31 H 32 H BUN 19 H 19 H Creatinine 1.8 H 1.8 H Glucose POC Glucose Lactic Acid Calcium 7.0 L 7.2 L Ionized Calcium Phosphorus Magnesium 2.90 H AST ALT Alkaline Phosphatase Lactate Dehydrogenase NT-Pro-B Natriuret Pep Total Protein Albumin Arterial Blood Glucose Arterial Blood Ionized Calcium Urine WBC (Auto) Vancomycin Trough Phenytoin Crossmatch 10/06/20 10/06/20 10/06/20 01:05 03:12 04:00 WBC 17.1 H RBC 3.47 L Hgb Hct MCV MCH MCHC RDW 17.4 H Plt Count 82 L Lymph % (Auto) 8.3 L [place] % (Auto) Lymph # (Auto) [place] # (Auto) 1.1 H Baso # (Auto) Seg Neutrophils % 83.8 H Seg Neuts % (Manual) Lymphocytes % (Manual) Monocytes % (Manual) Nucleated RBC % Seg Neutrophils # 14.3 H Seg Neutrophils # Man Lymphocytes # (Manual) Monocytes # (Manual) PT INR APTT Fibrinogen D-Dimer ABG pH 7.474 H POC ABG pCO2 POC ABG pO2 129.5 H ABG pO2 ABG HCO3 ABG Base Excess ABG Hemoglobin 11.4 L ABG Oxyhemoglobin ABG Sodium 131.8 L ABG Potassium ABG Chloride ABG Glucose 103 H VBG pH Oxyhemoglobin Carboxyhemoglobin 0.3 L Sodium Potassium Chloride Carbon Dioxide BUN Creatinine Glucose POC Glucose Lactic Acid Calcium Ionized Calcium Phosphorus Magnesium 3.70 H AST ALT Alkaline Phosphatase Lactate Dehydrogenase NT-Pro-B Natriuret Pep Total Protein Albumin Arterial Blood Glucose 103 H Arterial Blood Ionized Calcium 4.2 L Urine WBC (Auto) Vancomycin Trough Phenytoin Crossmatch 10/06/20 10/06/20 10/06/20 04:00 05:31 08:12 WBC RBC Hgb Hct MCV MCH MCHC RDW Plt Count Lymph % (Auto) [place] % (Auto) Lymph # (Auto) [place] # (Auto) Baso # (Auto) Seg Neutrophils % Seg Neuts % (Manual) Lymphocytes % (Manual) Monocytes % (Manual) Nucleated RBC % Seg Neutrophils # Seg Neutrophils # Man Lymphocytes # (Manual) Monocytes # (Manual) PT INR APTT Fibrinogen D-Dimer ABG pH POC ABG pCO2 POC ABG pO2 ABG pO2 ABG HCO3 ABG Base Excess ABG Hemoglobin ABG Oxyhemoglobin ABG Sodium ABG Potassium ABG Chloride ABG Glucose VBG pH Oxyhemoglobin Carboxyhemoglobin Sodium Potassium 3.5 L Chloride Carbon Dioxide BUN 19 H Creatinine 1.8 H Glucose 102 H POC Glucose 116 H Lactic Acid Calcium 7.2 L Ionized Calcium Phosphorus Magnesium 5.40 H AST 307 H ALT 137 H Alkaline Phosphatase Lactate Dehydrogenase NT-Pro-B Natriuret Pep Total Protein 4.5 L Albumin 2.6 L Arterial Blood Glucose Arterial Blood Ionized Calcium Urine WBC (Auto) Vancomycin Trough Phenytoin Crossmatch 10/06/20 10/06/20 10/06/20 11:00 11:50 20:13 WBC RBC Hgb Hct MCV MCH MCHC RDW Plt Count Lymph % (Auto) [place] % (Auto) Lymph # (Auto) [place] # (Auto) Baso # (Auto) Seg Neutrophils % Seg Neuts % (Manual) Lymphocytes % (Manual) Monocytes % (Manual) Nucleated RBC % Seg Neutrophils # Seg Neutrophils # Man Lymphocytes # (Manual) Monocytes # (Manual) PT INR APTT Fibrinogen D-Dimer ABG pH POC ABG pCO2 POC ABG pO2 ABG pO2 ABG HCO3 ABG Base Excess ABG Hemoglobin ABG Oxyhemoglobin ABG Sodium ABG Potassium ABG Chloride ABG Glucose VBG pH Oxyhemoglobin Carboxyhemoglobin Sodium Potassium Chloride Carbon Dioxide BUN Creatinine Glucose POC Glucose 106 H Lactic Acid Calcium Ionized Calcium Phosphorus Magnesium 6.50 H 6.20 H AST ALT Alkaline Phosphatase Lactate Dehydrogenase NT-Pro-B Natriuret Pep Total Protein Albumin Arterial Blood Glucose Arterial Blood Ionized Calcium Urine WBC (Auto) Vancomycin Trough Phenytoin Crossmatch 10/06/20 10/06/20 10/06/20 20:17 22:29 23:57 WBC RBC Hgb Hct MCV MCH MCHC RDW Plt Count Lymph % (Auto) [place] % (Auto) Lymph # (Auto) [place] # (Auto) Baso # (Auto) Seg Neutrophils % Seg Neuts % (Manual) Lymphocytes % (Manual) Monocytes % (Manual) Nucleated RBC % Seg Neutrophils # Seg Neutrophils # Man Lymphocytes # (Manual) Monocytes # (Manual) PT INR APTT Fibrinogen D-Dimer ABG pH POC ABG pCO2 POC ABG pO2 ABG pO2 ABG HCO3 ABG Base Excess ABG Hemoglobin ABG Oxyhemoglobin ABG Sodium ABG Potassium ABG Chloride ABG Glucose VBG pH Oxyhemoglobin Carboxyhemoglobin Sodium Potassium Chloride Carbon Dioxide BUN Creatinine Glucose POC Glucose 112 H 126 H 133 H Lactic Acid Calcium Ionized Calcium Phosphorus Magnesium AST ALT Alkaline Phosphatase Lactate Dehydrogenase NT-Pro-B Natriuret Pep Total Protein Albumin Arterial Blood Glucose Arterial Blood Ionized Calcium Urine WBC (Auto) Vancomycin Trough Phenytoin Crossmatch 10/07/20 10/07/20 10/07/20 00:35 02:22 03:16 WBC RBC Hgb Hct MCV MCH MCHC RDW Plt Count Lymph % (Auto) [place] % (Auto) Lymph # (Auto) [place] # (Auto) Baso # (Auto) Seg Neutrophils % Seg Neuts % (Manual) Lymphocytes % (Manual) Monocytes % (Manual) Nucleated RBC % Seg Neutrophils # Seg Neutrophils # Man Lymphocytes # (Manual) Monocytes # (Manual) PT INR APTT Fibrinogen D-Dimer ABG pH POC ABG pCO2 POC ABG pO2 ABG pO2 ABG HCO3 ABG Base Excess ABG Hemoglobin 11.6 L ABG Oxyhemoglobin ABG Sodium ABG Potassium ABG Chloride ABG Glucose 156 H VBG pH Oxyhemoglobin Carboxyhemoglobin 0.3 L Sodium Potassium Chloride Carbon Dioxide BUN Creatinine Glucose POC Glucose 124 H Lactic Acid Calcium Ionized Calcium Phosphorus Magnesium 5.90 H AST ALT Alkaline Phosphatase Lactate Dehydrogenase NT-Pro-B Natriuret Pep Total Protein Albumin Arterial Blood Glucose 156 H Arterial Blood Ionized Calcium 4.2 L Urine WBC (Auto) Vancomycin Trough Phenytoin Crossmatch 10/07/20 10/07/20 10/07/20 04:06 05:45 07:05 WBC 19.2 H RBC 3.57 L Hgb Hct MCV MCH MCHC 35 H RDW 17.1 H Plt Count 129 L Lymph % (Auto) [place] % (Auto) Lymph # (Auto) [place] # (Auto) Baso # (Auto) Seg Neutrophils % Seg Neuts % (Manual) 94.0 H Lymphocytes % (Manual) 6.0 L Monocytes % (Manual) Nucleated RBC % Seg Neutrophils # Seg Neutrophils # Man 18.0 H Lymphocytes # (Manual) Monocytes # (Manual) PT INR APTT Fibrinogen D-Dimer ABG pH POC ABG pCO2 POC ABG pO2 ABG pO2 ABG HCO3 ABG Base Excess ABG Hemoglobin ABG Oxyhemoglobin ABG Sodium ABG Potassium ABG Chloride ABG Glucose VBG pH Oxyhemoglobin Carboxyhemoglobin Sodium Potassium Chloride Carbon Dioxide BUN Creatinine Glucose POC Glucose 135 H 149 H Lactic Acid Calcium Ionized Calcium Phosphorus Magnesium AST ALT Alkaline Phosphatase Lactate Dehydrogenase NT-Pro-B Natriuret Pep Total Protein Albumin Arterial Blood Glucose Arterial Blood Ionized Calcium Urine WBC (Auto) Vancomycin Trough Phenytoin Crossmatch 10/07/20 10/07/20 10/07/20 07:05 07:05 12:21 WBC RBC Hgb Hct MCV MCH MCHC RDW Plt Count Lymph % (Auto) [place] % (Auto) Lymph # (Auto) [place] # (Auto) Baso # (Auto) Seg Neutrophils % Seg Neuts % (Manual) Lymphocytes % (Manual) Monocytes % (Manual) Nucleated RBC % Seg Neutrophils # Seg Neutrophils # Man Lymphocytes # (Manual) Monocytes # (Manual) PT INR APTT Fibrinogen D-Dimer ABG pH POC ABG pCO2 POC ABG pO2 ABG pO2 ABG HCO3 ABG Base Excess ABG Hemoglobin ABG Oxyhemoglobin ABG Sodium ABG Potassium ABG Chloride ABG Glucose VBG pH Oxyhemoglobin Carboxyhemoglobin Sodium Potassium Chloride Carbon Dioxide BUN 21 H Creatinine 1.7 H Glucose 171 H POC Glucose 124 H Lactic Acid Calcium 7.4 L Ionized Calcium Phosphorus Magnesium 6.10 H AST 245 H ALT 147 H Alkaline Phosphatase Lactate Dehydrogenase NT-Pro-B Natriuret Pep Total Protein 5.3 L Albumin 2.8 L Arterial Blood Glucose Arterial Blood Ionized Calcium Urine WBC (Auto) Vancomycin Trough Phenytoin Crossmatch 10/07/20 10/07/20 10/07/20 19:52 21:00 21:50 WBC RBC Hgb Hct MCV MCH MCHC RDW Plt Count Lymph % (Auto) [place] % (Auto) Lymph # (Auto) [place] # (Auto) Baso # (Auto) Seg Neutrophils % Seg Neuts % (Manual) Lymphocytes % (Manual) Monocytes % (Manual) Nucleated RBC % Seg Neutrophils # Seg Neutrophils # Man Lymphocytes # (Manual) Monocytes # (Manual) PT INR APTT Fibrinogen D-Dimer ABG pH POC ABG pCO2 POC ABG pO2 ABG pO2 ABG HCO3 ABG Base Excess ABG Hemoglobin ABG Oxyhemoglobin ABG Sodium ABG Potassium ABG Chloride ABG Glucose VBG pH Oxyhemoglobin Carboxyhemoglobin Sodium Potassium Chloride Carbon Dioxide BUN Creatinine Glucose POC Glucose 193 H 138 H Lactic Acid Calcium Ionized Calcium 4.4 L Phosphorus Magnesium AST ALT Alkaline Phosphatase Lactate Dehydrogenase NT-Pro-B Natriuret Pep Total Protein Albumin Arterial Blood Glucose Arterial Blood Ionized Calcium Urine WBC (Auto) Vancomycin Trough Phenytoin Crossmatch 10/07/20 10/08/20 10/08/20 23:41 04:20 05:30 WBC RBC Hgb Hct MCV MCH MCHC RDW Plt Count Lymph % (Auto) [place] % (Auto) Lymph # (Auto) [place] # (Auto) Baso # (Auto) Seg Neutrophils % Seg Neuts % (Manual) Lymphocytes % (Manual) Monocytes % (Manual) Nucleated RBC % Seg Neutrophils # Seg Neutrophils # Man Lymphocytes # (Manual) Monocytes # (Manual) PT INR APTT Fibrinogen D-Dimer ABG pH 7.467 H POC ABG pCO2 POC ABG pO2 189.8 H ABG pO2 ABG HCO3 ABG Base Excess ABG Hemoglobin 10.8 L ABG Oxyhemoglobin ABG Sodium ABG Potassium ABG Chloride ABG Glucose 133 H VBG pH Oxyhemoglobin Carboxyhemoglobin Sodium Potassium Chloride Carbon Dioxide BUN Creatinine Glucose POC Glucose 118 H 114 H Lactic Acid Calcium Ionized Calcium Phosphorus Magnesium AST ALT Alkaline Phosphatase Lactate Dehydrogenase NT-Pro-B Natriuret Pep Total Protein Albumin Arterial Blood Glucose 133 H Arterial Blood Ionized Calcium 4.2 L Urine WBC (Auto) Vancomycin Trough Phenytoin Crossmatch 10/08/20 10/08/20 10/08/20 05:43 06:42 06:42 WBC 23.6 H RBC 3.54 L Hgb Hct MCV MCH MCHC RDW 17.8 H Plt Count Lymph % (Auto) [place] % (Auto) Lymph # (Auto) [place] # (Auto) Baso # (Auto) Seg Neutrophils % Seg Neuts % (Manual) 93.0 H Lymphocytes % (Manual) 3.0 L Monocytes % (Manual) Nucleated RBC % 1.0 H Seg Neutrophils # Seg Neutrophils # Man 21.9 H Lymphocytes # (Manual) 0.7 L Monocytes # (Manual) 0.9 H PT INR APTT Fibrinogen D-Dimer ABG pH POC ABG pCO2 POC ABG pO2 ABG pO2 ABG HCO3 ABG Base Excess ABG Hemoglobin ABG Oxyhemoglobin ABG Sodium ABG Potassium ABG Chloride ABG Glucose VBG pH Oxyhemoglobin Carboxyhemoglobin Sodium Potassium Chloride Carbon Dioxide BUN 28 H Creatinine 1.6 H Glucose 141 H POC Glucose 126 H Lactic Acid Calcium 7.6 L Ionized Calcium Phosphorus Magnesium AST 162 H ALT 103 H Alkaline Phosphatase Lactate Dehydrogenase NT-Pro-B Natriuret Pep Total Protein 5.4 L Albumin 2.7 L Arterial Blood Glucose Arterial Blood Ionized Calcium Urine WBC (Auto) Vancomycin Trough Phenytoin Crossmatch 10/08/20 10/08/20 10/08/20 11:20 16:05 20:14 WBC RBC Hgb Hct MCV MCH MCHC RDW Plt Count Lymph % (Auto) [place] % (Auto) Lymph # (Auto) [place] # (Auto) Baso # (Auto) Seg Neutrophils % Seg Neuts % (Manual) Lymphocytes % (Manual) Monocytes % (Manual) Nucleated RBC % Seg Neutrophils # Seg Neutrophils # Man Lymphocytes # (Manual) Monocytes # (Manual) PT INR APTT Fibrinogen D-Dimer ABG pH POC ABG pCO2 POC ABG pO2 ABG pO2 ABG HCO3 ABG Base Excess ABG Hemoglobin ABG Oxyhemoglobin ABG Sodium ABG Potassium ABG Chloride ABG Glucose VBG pH Oxyhemoglobin Carboxyhemoglobin Sodium Potassium Chloride Carbon Dioxide BUN Creatinine Glucose POC Glucose 127 H 172 H 147 H Lactic Acid Calcium Ionized Calcium Phosphorus Magnesium AST ALT Alkaline Phosphatase Lactate Dehydrogenase NT-Pro-B Natriuret Pep Total Protein Albumin Arterial Blood Glucose Arterial Blood Ionized Calcium Urine WBC (Auto) Vancomycin Trough Phenytoin Crossmatch 10/08/20 10/08/20 10/09/20 21:27 23:24 02:10 WBC RBC Hgb Hct MCV MCH MCHC RDW Plt Count Lymph % (Auto) [place] % (Auto) Lymph # (Auto) [place] # (Auto) Baso # (Auto) Seg Neutrophils % Seg Neuts % (Manual) Lymphocytes % (Manual) Monocytes % (Manual) Nucleated RBC % Seg Neutrophils # Seg Neutrophils # Man Lymphocytes # (Manual) Monocytes # (Manual) PT INR APTT Fibrinogen D-Dimer ABG pH POC ABG pCO2 POC ABG pO2 ABG pO2 ABG HCO3 ABG Base Excess ABG Hemoglobin ABG Oxyhemoglobin ABG Sodium ABG Potassium ABG Chloride ABG Glucose VBG pH Oxyhemoglobin Carboxyhemoglobin Sodium Potassium Chloride Carbon Dioxide BUN Creatinine Glucose POC Glucose 140 H 135 H 111 H Lactic Acid Calcium Ionized Calcium Phosphorus Magnesium AST ALT Alkaline Phosphatase Lactate Dehydrogenase NT-Pro-B Natriuret Pep Total Protein Albumin Arterial Blood Glucose Arterial Blood Ionized Calcium Urine WBC (Auto) Vancomycin Trough Phenytoin Crossmatch 10/09/20 10/09/20 10/09/20 03:44 04:39 05:46 WBC 19.7 H RBC 3.51 L Hgb Hct MCV MCH MCHC RDW 17.7 H Plt Count Lymph % (Auto) [place] % (Auto) Lymph # (Auto) [place] # (Auto) Baso # (Auto) Seg Neutrophils % Seg Neuts % (Manual) 86.0 H Lymphocytes % (Manual) 4.0 L Monocytes % (Manual) 9.0 H Nucleated RBC % Seg Neutrophils # Seg Neutrophils # Man 16.9 H Lymphocytes # (Manual) 0.8 L Monocytes # (Manual) 1.8 H PT INR APTT Fibrinogen D-Dimer ABG pH 7.513 H POC ABG pCO2 POC ABG pO2 33.6 L ABG pO2 ABG HCO3 ABG Base Excess ABG Hemoglobin 11.1 L ABG Oxyhemoglobin 70.2 L ABG Sodium ABG Potassium 3.2 L ABG Chloride 108.0 H ABG Glucose 108 H VBG pH Oxyhemoglobin Carboxyhemoglobin Sodium Potassium Chloride Carbon Dioxide BUN Creatinine Glucose POC Glucose 109 H Lactic Acid Calcium Ionized Calcium Phosphorus Magnesium AST ALT Alkaline Phosphatase Lactate Dehydrogenase NT-Pro-B Natriuret Pep Total Protein Albumin Arterial Blood Glucose 108 H Arterial Blood Ionized Calcium 4.3 L Urine WBC (Auto) Vancomycin Trough Phenytoin Crossmatch 10/09/20 10/10/20 10/10/20 05:46 04:00 04:00 WBC 18.4 H RBC Hgb Hct MCV MCH MCHC RDW 17.5 H Plt Count Lymph % (Auto) 9.8 L [place] % (Auto) 8.8 H Lymph # (Auto) [place] # (Auto) 1.6 H Baso # (Auto) Seg Neutrophils % 80.0 H Seg Neuts % (Manual) Lymphocytes % (Manual) Monocytes % (Manual) Nucleated RBC % Seg Neutrophils # 14.7 H Seg Neutrophils # Man Lymphocytes # (Manual) Monocytes # (Manual) PT INR APTT Fibrinogen D-Dimer ABG pH POC ABG pCO2 POC ABG pO2 ABG pO2 ABG HCO3 ABG Base Excess ABG Hemoglobin ABG Oxyhemoglobin ABG Sodium ABG Potassium ABG Chloride ABG Glucose VBG pH Oxyhemoglobin Carboxyhemoglobin Sodium 146 H Potassium 3.2 L 2.9 L* Chloride 108.9 H 112.6 H Carbon Dioxide BUN 34 H 28 H Creatinine 1.4 H 1.3 H Glucose 109 H 101 H POC Glucose Lactic Acid Calcium 7.6 L 7.8 L Ionized Calcium Phosphorus Magnesium AST 137 H 122 H ALT 99 H 81 H Alkaline Phosphatase Lactate Dehydrogenase NT-Pro-B Natriuret Pep Total Protein 5.1 L 5.2 L Albumin 2.6 L 2.7 L Arterial Blood Glucose Arterial Blood Ionized Calcium Urine WBC (Auto) Vancomycin Trough Phenytoin Crossmatch 10/10/20 10/10/20 10/11/20 04:42 09:50 00:44 WBC RBC Hgb Hct MCV MCH MCHC RDW Plt Count Lymph % (Auto) [place] % (Auto) Lymph # (Auto) [place] # (Auto) Baso # (Auto) Seg Neutrophils % Seg Neuts % (Manual) Lymphocytes % (Manual) Monocytes % (Manual) Nucleated RBC % Seg Neutrophils # Seg Neutrophils # Man Lymphocytes # (Manual) Monocytes # (Manual) PT INR APTT Fibrinogen D-Dimer ABG pH 7.534 H POC ABG pCO2 POC ABG pO2 ABG pO2 95.2 H ABG HCO3 ABG Base Excess ABG Hemoglobin 11.3 L ABG Oxyhemoglobin ABG Sodium ABG Potassium ABG Chloride ABG Glucose VBG pH Oxyhemoglobin Carboxyhemoglobin Sodium Potassium Chloride Carbon Dioxide BUN Creatinine Glucose POC Glucose 109 H 106 H Lactic Acid Calcium Ionized Calcium Phosphorus Magnesium AST ALT Alkaline Phosphatase Lactate Dehydrogenase NT-Pro-B Natriuret Pep Total Protein Albumin Arterial Blood Glucose Arterial Blood Ionized Calcium Urine WBC (Auto) Vancomycin Trough Phenytoin Crossmatch 10/11/20 10/11/20 10/11/20 04:00 04:00 06:08 WBC 27.0 H RBC Hgb Hct MCV MCH MCHC RDW 17.7 H Plt Count Lymph % (Auto) 6.3 L [place] % (Auto) Lymph # (Auto) [place] # (Auto) 1.5 H Baso # (Auto) Seg Neutrophils % 87.1 H Seg Neuts % (Manual) Lymphocytes % (Manual) Monocytes % (Manual) Nucleated RBC % Seg Neutrophils # 23.5 H Seg Neutrophils # Man Lymphocytes # (Manual) Monocytes # (Manual) PT INR APTT Fibrinogen D-Dimer ABG pH POC ABG pCO2 POC ABG pO2 ABG pO2 ABG HCO3 ABG Base Excess ABG Hemoglobin ABG Oxyhemoglobin ABG Sodium ABG Potassium ABG Chloride ABG Glucose VBG pH Oxyhemoglobin Carboxyhemoglobin Sodium Potassium 3.2 L Chloride 110.4 H Carbon Dioxide 19 L BUN 22 H Creatinine Glucose 116 H POC Glucose 107 H Lactic Acid Calcium 7.7 L Ionized Calcium Phosphorus Magnesium 1.60 L AST ALT Alkaline Phosphatase Lactate Dehydrogenase NT-Pro-B Natriuret Pep Total Protein Albumin Arterial Blood Glucose Arterial Blood Ionized Calcium Urine WBC (Auto) Vancomycin Trough Phenytoin Crossmatch 10/11/20 10/11/20 10/12/20 11:41 13:26 03:52 WBC RBC Hgb Hct MCV MCH MCHC RDW Plt Count Lymph % (Auto) [place] % (Auto) Lymph # (Auto) [place] # (Auto) Baso # (Auto) Seg Neutrophils % Seg Neuts % (Manual) Lymphocytes % (Manual) Monocytes % (Manual) Nucleated RBC % Seg Neutrophils # Seg Neutrophils # Man Lymphocytes # (Manual) Monocytes # (Manual) PT INR APTT Fibrinogen D-Dimer ABG pH POC ABG pCO2 POC ABG pO2 ABG pO2 ABG HCO3 ABG Base Excess ABG Hemoglobin ABG Oxyhemoglobin ABG Sodium ABG Potassium ABG Chloride ABG Glucose VBG pH Oxyhemoglobin Carboxyhemoglobin Sodium Potassium Chloride Carbon Dioxide BUN Creatinine Glucose POC Glucose 116 H 114 H Lactic Acid Calcium Ionized Calcium Phosphorus Magnesium AST ALT Alkaline Phosphatase Lactate Dehydrogenase NT-Pro-B Natriuret Pep Total Protein Albumin Arterial Blood Glucose Arterial Blood Ionized Calcium Urine WBC (Auto) 24.0 H Vancomycin Trough Phenytoin Crossmatch 10/12/20 10/12/20 10/12/20 04:24 14:47 21:33 WBC RBC Hgb Hct MCV MCH MCHC RDW Plt Count Lymph % (Auto) [place] % (Auto) Lymph # (Auto) [place] # (Auto) Baso # (Auto) Seg Neutrophils % Seg Neuts % (Manual) Lymphocytes % (Manual) Monocytes % (Manual) Nucleated RBC % Seg Neutrophils # Seg Neutrophils # Man Lymphocytes # (Manual) Monocytes # (Manual) PT INR APTT Fibrinogen D-Dimer ABG pH POC ABG pCO2 POC ABG pO2 ABG pO2 ABG HCO3 ABG Base Excess ABG Hemoglobin ABG Oxyhemoglobin ABG Sodium ABG Potassium ABG Chloride ABG Glucose VBG pH Oxyhemoglobin Carboxyhemoglobin Sodium Potassium Chloride 109.9 H Carbon Dioxide 13 L BUN 18 H Creatinine Glucose 119 H POC Glucose 107 H Lactic Acid Calcium 7.6 L Ionized Calcium Phosphorus Magnesium 1.60 L AST ALT Alkaline Phosphatase Lactate Dehydrogenase NT-Pro-B Natriuret Pep Total Protein Albumin Arterial Blood Glucose Arterial Blood Ionized Calcium Urine WBC (Auto) Vancomycin Trough Phenytoin Crossmatch 10/12/20 10/12/20 10/13/20 Unknown Unknown 07:00 WBC 24.3 H RBC 3.38 L Hgb 9.8 L Hct MCV MCH MCHC RDW 18.7 H Plt Count Lymph % (Auto) [place] % (Auto) Lymph # (Auto) [place] # (Auto) Baso # (Auto) Seg Neutrophils % Seg Neuts % (Manual) 93.5 H Lymphocytes % (Manual) 4.5 L Monocytes % (Manual) Nucleated RBC % Seg Neutrophils # Seg Neutrophils # Man 22.7 H Lymphocytes # (Manual) 1.1 L Monocytes # (Manual) PT INR APTT Fibrinogen D-Dimer ABG pH POC ABG pCO2 POC ABG pO2 ABG pO2 ABG HCO3 ABG Base Excess ABG Hemoglobin ABG Oxyhemoglobin ABG Sodium ABG Potassium ABG Chloride ABG Glucose VBG pH Oxyhemoglobin Carboxyhemoglobin Sodium 135 L D Potassium 3.1 L Chloride Carbon Dioxide 17 L BUN Creatinine Glucose 510 H* POC Glucose Lactic Acid Calcium 7.2 L Ionized Calcium Phosphorus Magnesium AST ALT Alkaline Phosphatase Lactate Dehydrogenase NT-Pro-B Natriuret Pep Total Protein Albumin Arterial Blood Glucose Arterial Blood Ionized Calcium Urine WBC (Auto) Vancomycin Trough Phenytoin 5.7 L Crossmatch 10/13/20 10/13/20 10/13/20 07:00 07:00 07:18 WBC 23.6 H RBC 3.26 L Hgb 9.4 L Hct 28.7 L MCV MCH MCHC RDW 18.3 H Plt Count Lymph % (Auto) [place] % (Auto) Lymph # (Auto) [place] # (Auto) Baso # (Auto) Seg Neutrophils % Seg Neuts % (Manual) Lymphocytes % (Manual) Monocytes % (Manual) Nucleated RBC % Seg Neutrophils # Seg Neutrophils # Man Lymphocytes # (Manual) Monocytes # (Manual) PT INR APTT Fibrinogen D-Dimer ABG pH 7.473 H POC ABG pCO2 20.7 L POC ABG pO2 137.9 H ABG pO2 ABG HCO3 ABG Base Excess ABG Hemoglobin 11.2 L ABG Oxyhemoglobin 98.3 H ABG Sodium 135.9 L ABG Potassium ABG Chloride 111.0 H ABG Glucose 109 H VBG pH Oxyhemoglobin Carboxyhemoglobin 0.3 L Sodium 135 L Potassium 3.5 L Chloride 109.1 H Carbon Dioxide 18 L BUN Creatinine Glucose POC Glucose Lactic Acid Calcium 7.3 L Ionized Calcium Phosphorus Magnesium 1.60 L AST ALT Alkaline Phosphatase Lactate Dehydrogenase NT-Pro-B Natriuret Pep Total Protein Albumin Arterial Blood Glucose 109 H Arterial Blood Ionized Calcium Urine WBC (Auto) Vancomycin Trough Phenytoin Crossmatch 10/14/20 10/14/20 10/15/20 04:00 04:00 05:50 WBC 28.6 H 23.2 H RBC 3.61 L 3.43 L Hgb 9.9 L Hct 30.0 L MCV MCH MCHC RDW 18.3 H 18.2 H Plt Count Lymph % (Auto) [place] % (Auto) Lymph # (Auto) [place] # (Auto) Baso # (Auto) Seg Neutrophils % Seg Neuts % (Manual) 88.0 H 90.0 H Lymphocytes % (Manual) 5.0 L 4.0 L Monocytes % (Manual) Nucleated RBC % Seg Neutrophils # Seg Neutrophils # Man 25.2 H 20.9 H Lymphocytes # (Manual) 0.9 L Monocytes # (Manual) 1.4 H 0.9 H PT INR APTT Fibrinogen D-Dimer ABG pH POC ABG pCO2 POC ABG pO2 ABG pO2 ABG HCO3 ABG Base Excess ABG Hemoglobin ABG Oxyhemoglobin ABG Sodium ABG Potassium ABG Chloride ABG Glucose VBG pH Oxyhemoglobin Carboxyhemoglobin Sodium Potassium Chloride 109.9 H Carbon Dioxide 17 L BUN Creatinine Glucose POC Glucose Lactic Acid Calcium Ionized Calcium Phosphorus Magnesium AST ALT Alkaline Phosphatase Lactate Dehydrogenase NT-Pro-B Natriuret Pep Total Protein Albumin Arterial Blood Glucose Arterial Blood Ionized Calcium Urine WBC (Auto) Vancomycin Trough Phenytoin Crossmatch 10/15/20 10/16/20 10/17/20 05:50 11:57 04:57 WBC 15.2 H RBC 3.43 L Hgb Hct MCV MCH MCHC RDW 18.1 H Plt Count Lymph % (Auto) [place] % (Auto) Lymph # (Auto) [place] # (Auto) Baso # (Auto) Seg Neutrophils % Seg Neuts % (Manual) Lymphocytes % (Manual) Monocytes % (Manual) Nucleated RBC % Seg Neutrophils # Seg Neutrophils # Man Lymphocytes # (Manual) Monocytes # (Manual) PT INR APTT Fibrinogen D-Dimer ABG pH POC ABG pCO2 POC ABG pO2 ABG pO2 ABG HCO3 ABG Base Excess ABG Hemoglobin ABG Oxyhemoglobin ABG Sodium ABG Potassium ABG Chloride ABG Glucose VBG pH Oxyhemoglobin Carboxyhemoglobin Sodium Potassium Chloride 110.3 H Carbon Dioxide 18 L BUN Creatinine Glucose 105 H POC Glucose 111 H Lactic Acid Calcium 8.3 L Ionized Calcium Phosphorus Magnesium AST ALT Alkaline Phosphatase Lactate Dehydrogenase NT-Pro-B Natriuret Pep Total Protein Albumin Arterial Blood Glucose Arterial Blood Ionized Calcium Urine WBC (Auto) Vancomycin Trough Phenytoin Crossmatch 10/17/20 10/17/20 10/18/20 05:25 21:16 01:31 WBC RBC Hgb Hct MCV MCH MCHC RDW Plt Count Lymph % (Auto) [place] % (Auto) Lymph # (Auto) [place] # (Auto) Baso # (Auto) Seg Neutrophils % Seg Neuts % (Manual) Lymphocytes % (Manual) Monocytes % (Manual) Nucleated RBC % Seg Neutrophils # Seg Neutrophils # Man Lymphocytes # (Manual) Monocytes # (Manual) PT INR APTT Fibrinogen D-Dimer ABG pH POC ABG pCO2 POC ABG pO2 ABG pO2 ABG HCO3 ABG Base Excess ABG Hemoglobin ABG Oxyhemoglobin ABG Sodium ABG Potassium ABG Chloride ABG Glucose VBG pH Oxyhemoglobin Carboxyhemoglobin Sodium Potassium Chloride Carbon Dioxide BUN Creatinine Glucose POC Glucose 107 H 106 H 119 H Lactic Acid Calcium Ionized Calcium Phosphorus Magnesium AST ALT Alkaline Phosphatase Lactate Dehydrogenase NT-Pro-B Natriuret Pep Total Protein Albumin Arterial Blood Glucose Arterial Blood Ionized Calcium Urine WBC (Auto) Vancomycin Trough Phenytoin Crossmatch 10/18/20 10/18/20 10/19/20 05:45 11:23 01:14 WBC RBC Hgb Hct MCV MCH MCHC RDW Plt Count Lymph % (Auto) [place] % (Auto) Lymph # (Auto) [place] # (Auto) Baso # (Auto) Seg Neutrophils % Seg Neuts % (Manual) Lymphocytes % (Manual) Monocytes % (Manual) Nucleated RBC % Seg Neutrophils # Seg Neutrophils # Man Lymphocytes # (Manual) Monocytes # (Manual) PT INR APTT Fibrinogen D-Dimer ABG pH POC ABG pCO2 POC ABG pO2 ABG pO2 ABG HCO3 ABG Base Excess ABG Hemoglobin ABG Oxyhemoglobin ABG Sodium ABG Potassium ABG Chloride ABG Glucose VBG pH Oxyhemoglobin Carboxyhemoglobin Sodium Potassium Chloride Carbon Dioxide BUN Creatinine Glucose POC Glucose 106 H 115 H 108 H Lactic Acid Calcium Ionized Calcium Phosphorus Magnesium AST ALT Alkaline Phosphatase Lactate Dehydrogenase NT-Pro-B Natriuret Pep Total Protein Albumin Arterial Blood Glucose Arterial Blood Ionized Calcium Urine WBC (Auto) Vancomycin Trough Phenytoin Crossmatch 10/19/20 10/20/20 10/20/20 09:57 05:40 07:59 WBC RBC Hgb Hct MCV MCH MCHC RDW Plt Count Lymph % (Auto) [place] % (Auto) Lymph # (Auto) [place] # (Auto) Baso # (Auto) Seg Neutrophils % Seg Neuts % (Manual) Lymphocytes % (Manual) Monocytes % (Manual) Nucleated RBC % Seg Neutrophils # Seg Neutrophils # Man Lymphocytes # (Manual) Monocytes # (Manual) PT INR APTT Fibrinogen D-Dimer ABG pH POC ABG pCO2 POC ABG pO2 ABG pO2 ABG HCO3 ABG Base Excess ABG Hemoglobin ABG Oxyhemoglobin ABG Sodium ABG Potassium ABG Chloride ABG Glucose VBG pH Oxyhemoglobin Carboxyhemoglobin Sodium Potassium Chloride Carbon Dioxide BUN Creatinine Glucose 106 H POC Glucose 122 H 109 H Lactic Acid Calcium Ionized Calcium Phosphorus Magnesium AST ALT Alkaline Phosphatase Lactate Dehydrogenase NT-Pro-B Natriuret Pep Total Protein Albumin Arterial Blood Glucose Arterial Blood Ionized Calcium Urine WBC (Auto) Vancomycin Trough Phenytoin Crossmatch 10/20/20 10/20/20 10/21/20 16:52 16:52 13:54 WBC 18.8 H 17.0 H RBC Hgb Hct MCV MCH MCHC RDW 17.7 H 17.8 H Plt Count 547 H 544 H Lymph % (Auto) 11.2 L [place] % (Auto) 8.1 H Lymph # (Auto) [place] # (Auto) 1.5 H Baso # (Auto) 0.2 H Seg Neutrophils % 78.8 H Seg Neuts % (Manual) Lymphocytes % (Manual) Monocytes % (Manual) Nucleated RBC % Seg Neutrophils # 14.8 H Seg Neutrophils # Man Lymphocytes # (Manual) Monocytes # (Manual) PT INR APTT Fibrinogen D-Dimer ABG pH POC ABG pCO2 POC ABG pO2 ABG pO2 ABG HCO3 ABG Base Excess ABG Hemoglobin ABG Oxyhemoglobin ABG Sodium ABG Potassium ABG Chloride ABG Glucose VBG pH Oxyhemoglobin Carboxyhemoglobin Sodium Potassium Chloride Carbon Dioxide BUN Creatinine Glucose POC Glucose Lactic Acid Calcium Ionized Calcium Phosphorus Magnesium AST ALT Alkaline Phosphatase Lactate Dehydrogenase NT-Pro-B Natriuret Pep Total Protein Albumin Arterial Blood Glucose Arterial Blood Ionized Calcium Urine WBC (Auto) Vancomycin Trough 34.5 H Phenytoin Crossmatch 10/21/20 10/22/20 10/23/20 13:54 07:26 05:34 WBC 18.7 H 13.0 H RBC 3.64 L 3.50 L Hgb Hct 30.0 L MCV MCH MCHC 35 H RDW 17.7 H 17.6 H Plt Count 502 H 503 H Lymph % (Auto) [place] % (Auto) Lymph # (Auto) [place] # (Auto) Baso # (Auto) Seg Neutrophils % Seg Neuts % (Manual) Lymphocytes % (Manual) Monocytes % (Manual) Nucleated RBC % Seg Neutrophils # Seg Neutrophils # Man Lymphocytes # (Manual) Monocytes # (Manual) PT INR APTT Fibrinogen D-Dimer ABG pH POC ABG pCO2 POC ABG pO2 ABG pO2 ABG HCO3 ABG Base Excess ABG Hemoglobin ABG Oxyhemoglobin ABG Sodium ABG Potassium ABG Chloride ABG Glucose VBG pH Oxyhemoglobin Carboxyhemoglobin Sodium 136 L Potassium Chloride Carbon Dioxide BUN Creatinine Glucose 120 H POC Glucose Lactic Acid Calcium Ionized Calcium Phosphorus Magnesium AST ALT Alkaline Phosphatase Lactate Dehydrogenase NT-Pro-B Natriuret Pep Total Protein Albumin Arterial Blood Glucose Arterial Blood Ionized Calcium Urine WBC (Auto) Vancomycin Trough Phenytoin Crossmatch 10/23/20 10/26/20 10/27/20 05:34 10:30 07:53 WBC 13.6 H RBC 3.38 L Hgb 10.0 L Hct 28.8 L MCV MCH MCHC 35 H RDW 17.6 H Plt Count Lymph % (Auto) [place] % (Auto) Lymph # (Auto) [place] # (Auto) Baso # (Auto) Seg Neutrophils % Seg Neuts % (Manual) Lymphocytes % (Manual) Monocytes % (Manual) Nucleated RBC % Seg Neutrophils # Seg Neutrophils # Man Lymphocytes # (Manual) Monocytes # (Manual) PT INR APTT Fibrinogen D-Dimer ABG pH 7.459 H POC ABG pCO2 POC ABG pO2 ABG pO2 112.2 H ABG HCO3 ABG Base Excess ABG Hemoglobin ABG Oxyhemoglobin ABG Sodium ABG Potassium ABG Chloride ABG Glucose VBG pH Oxyhemoglobin Carboxyhemoglobin Sodium 135 L Potassium Chloride Carbon Dioxide BUN Creatinine Glucose 105 H POC Glucose Lactic Acid Calcium Ionized Calcium Phosphorus Magnesium AST ALT Alkaline Phosphatase Lactate Dehydrogenase NT-Pro-B Natriuret Pep Total Protein Albumin Arterial Blood Glucose Arterial Blood Ionized Calcium Urine WBC (Auto) Vancomycin Trough Phenytoin Crossmatch 10/27/20 10/27/20 10/28/20 07:53 11:31 05:19 WBC RBC Hgb Hct MCV MCH MCHC RDW Plt Count Lymph % (Auto) [place] % (Auto) Lymph # (Auto) [place] # (Auto) Baso # (Auto) Seg Neutrophils % Seg Neuts % (Manual) Lymphocytes % (Manual) Monocytes % (Manual) Nucleated RBC % Seg Neutrophils # Seg Neutrophils # Man Lymphocytes # (Manual) Monocytes # (Manual) PT INR APTT Fibrinogen D-Dimer ABG pH POC ABG pCO2 POC ABG pO2 ABG pO2 ABG HCO3 ABG Base Excess ABG Hemoglobin ABG Oxyhemoglobin ABG Sodium ABG Potassium ABG Chloride ABG Glucose VBG pH Oxyhemoglobin Carboxyhemoglobin Sodium Potassium Chloride Carbon Dioxide BUN 20 H Creatinine Glucose 112 H POC Glucose 113 H 112 H Lactic Acid Calcium Ionized Calcium Phosphorus Magnesium AST 83 H ALT Alkaline Phosphatase Lactate Dehydrogenase NT-Pro-B Natriuret Pep Total Protein Albumin 3.8 L Arterial Blood Glucose Arterial Blood Ionized Calcium Urine WBC (Auto) Vancomycin Trough Phenytoin Crossmatch 10/29/20 10/29/20 10/29/20 07:56 07:56 11:37 WBC 13.6 H RBC Hgb Hct MCV MCH MCHC RDW 17.0 H Plt Count Lymph % (Auto) [place] % (Auto) Lymph # (Auto) [place] # (Auto) Baso # (Auto) Seg Neutrophils % Seg Neuts % (Manual) 80.0 H Lymphocytes % (Manual) Monocytes % (Manual) Nucleated RBC % Seg Neutrophils # Seg Neutrophils # Man 10.9 H Lymphocytes # (Manual) Monocytes # (Manual) PT INR APTT Fibrinogen D-Dimer ABG pH POC ABG pCO2 POC ABG pO2 ABG pO2 ABG HCO3 ABG Base Excess ABG Hemoglobin ABG Oxyhemoglobin ABG Sodium ABG Potassium ABG Chloride ABG Glucose VBG pH Oxyhemoglobin Carboxyhemoglobin Sodium Potassium Chloride Carbon Dioxide BUN Creatinine Glucose POC Glucose 108 H Lactic Acid Calcium Ionized Calcium Phosphorus 4.70 H Magnesium AST ALT Alkaline Phosphatase Lactate Dehydrogenase NT-Pro-B Natriuret Pep Total Protein Albumin Arterial Blood Glucose Arterial Blood Ionized Calcium Urine WBC (Auto) Vancomycin Trough Phenytoin Crossmatch 10/29/20 10/30/20 10/30/20 13:32 12:11 17:19 WBC RBC Hgb Hct MCV MCH MCHC RDW Plt Count Lymph % (Auto) [place] % (Auto) Lymph # (Auto) [place] # (Auto) Baso # (Auto) Seg Neutrophils % Seg Neuts % (Manual) Lymphocytes % (Manual) Monocytes % (Manual) Nucleated RBC % Seg Neutrophils # Seg Neutrophils # Man Lymphocytes # (Manual) Monocytes # (Manual) PT INR APTT Fibrinogen D-Dimer ABG pH POC ABG pCO2 POC ABG pO2 ABG pO2 ABG HCO3 ABG Base Excess ABG Hemoglobin ABG Oxyhemoglobin ABG Sodium ABG Potassium ABG Chloride ABG Glucose VBG pH Oxyhemoglobin Carboxyhemoglobin Sodium Potassium Chloride Carbon Dioxide BUN Creatinine Glucose POC Glucose 108 H 106 H 107 H Lactic Acid Calcium Ionized Calcium Phosphorus Magnesium AST ALT Alkaline Phosphatase Lactate Dehydrogenase NT-Pro-B Natriuret Pep Total Protein Albumin Arterial Blood Glucose Arterial Blood Ionized Calcium Urine WBC (Auto) Vancomycin Trough Phenytoin Crossmatch 10/31/20 10/31/20 03:20 05:43 WBC RBC Hgb Hct MCV MCH MCHC RDW Plt Count Lymph % (Auto) [place] % (Auto) Lymph # (Auto) [place] # (Auto) Baso # (Auto) Seg Neutrophils % Seg Neuts % (Manual) Lymphocytes % (Manual) Monocytes % (Manual) Nucleated RBC % Seg Neutrophils # Seg Neutrophils # Man Lymphocytes # (Manual) Monocytes # (Manual) PT INR APTT Fibrinogen D-Dimer ABG pH POC ABG pCO2 POC ABG pO2 ABG pO2 ABG HCO3 ABG Base Excess ABG Hemoglobin ABG Oxyhemoglobin ABG Sodium ABG Potassium ABG Chloride ABG Glucose VBG pH Oxyhemoglobin Carboxyhemoglobin Sodium Potassium Chloride Carbon Dioxide BUN Creatinine Glucose POC Glucose 108 H 115 H Lactic Acid Calcium Ionized Calcium Phosphorus Magnesium AST ALT Alkaline Phosphatase Lactate Dehydrogenase NT-Pro-B Natriuret Pep Total Protein Albumin Arterial Blood Glucose Arterial Blood Ionized Calcium Urine WBC (Auto) Vancomycin Trough Phenytoin Crossmatch
--- NOTE | 2020-10-31 18:04 | Progress Note ---
Assessment and Plan Assessment and plan: 30 year old -[place] female CHE 10/25/20 at 36w5d who presents with seizures in triage on 10/02/20. Pt was not able to provide history but per pt's , she presented to the hospital to return a 24 hour urine specimen for analysis. She then suddenly reported that she did not feel good. She was taken to labor and delivery and shortly after arrival, she began seizing. During this time, a code met was called because the patient became hypoxic. She was then noted to be without a pulse. Chest compressions were started immediately, and the patient was emergently taken to the operating room for delivery of the fetus. Off note, This patient has had care at [facility] with comanagement by [facility] since 11 wks complicated by ADHD, morbid obesity, generalized anxiety disorder, panic attacks, chronic narcotic use, fibromyalgia, GERD, Irritable Bowel Syndrome, Migraines, h/o endometrial ablation and ovarian vein embolization, genital herpes, insomnia, LGA fetus, nausea and vomiting, polyhydramnios, quad screen positive for Down's Syndrome, and previous x 3. She is GBS negative. , Patient tracheostomy on ventilatory support, unable to wean, continue supportive care poor prognosis --Acute hypoxic respiratory failure: Tracheostomy on T-piece , 5 L oxygen, saturating 100% Nebulizers, continue oxygen titrate O2 sats to more than 90% Pulmonary critical following --Sepsis; received antibiotics Continue to monitor off antibiotics ID following --Cardiac arrest; 10/07/2020 ,status post CPR --COVID-19 test negative; 10/08/2020 --C. difficile colitis test; positive; 10/16/2020 --Acute metabolic encephalopathy --Acute hypoxic brain injury; Supportive care, closely monitor --Acute kidney injury; vasomotor nephropathy Resolved, renal function within normal limits, closely monitor --Shock; septic versus cardiogenic Requiring vasopressors, stable --DIC; sepsis, septic shock, resolved --History of preeclampsia; / hemorrhage Status post hysterectomy --History of C. difficile colitis; completed oral vancomycin --DVT/SVT and right upper extremity Very poor prognosis, Consults recommendations noted and appreciated We will closely monitor the patient and adjust management as needed Plan of care reviewed with the patient's nurse. 11:30: Pt brought to L&D triage for evaluation of possible labor. Pt accompanied by her spouse. Pt spouse poor historian; unable to obtain history- allergies at this time. Pt taken from registration to triage area via WC. Pt unresponsive, actively seizing with snorous respirations. media relations manager, Kassy, called and requesting assistance. 11:35: Multiple staff at bedside. Pt 02 sat 67% on nonrebreather, unable to read BP at this time. Yifan Theodore CRNA, at bedside for intubation and assistance with IV insertion. INT attempt by multiple RNs unsuccessful at this time. 11:42: Pt being bagged by KORIN, 02% 79%. No pulse palpated, compressions started at this time; bharati young called and Dr. Newberry preparing OR for emergent c/s. 11:44: Continued compressions on stretcher while transporting pt to OR 1. Pt being bagged with jaw thrust manuever in place by KORIN Stringer student. 11:45: Arrival to OR 1. Dr. Newberry and Dr. Portillo present for emergent c/s. Code team arrived for continued care. patient revived and c/s done Patient has been bleeding from C/s site followed by supracervical hysterectomy for severe bleeding Patient transfused multiple units of PRBC, Patient in DIC. Transferred to the ICU 10/03. Patient seen and examined at bedside this morning. Patient is nonresponsive and mechanically ventilated. On pressors. Labs reviewed-has leukocytosis, anemia, thrombocytopenia, ADOLPH and lactic acidosis. Started on IV antibiotics to cover possible sepsis secondary to DIC. Hematology oncology recommendations appreciated-needs additional cryoprecipitate and FFP. Monitor D-dimer, fibrinogen and frequent labs. Nephrology consulted for lactic acidosis and ADOLPH. 10/04. Remains mechanically ventilated. Kevin antibiotics. Labs shows improved acidosis - lactic acid 3.5. Hb drop noted. Getting transfused 2 units PRBCs. Platelet count is ~40k. Continue to monitor labs closely. Critical care team on board. 10/05; xray reviewed, concerning for multifocal infilrate, likely underlying Pneumonia, will add ID consult to assist with management of this critically ill patient, start tube feed, closely monitor renal system 10/06: Resumed care, remains on mechanical ventilation. No active bleeding, H&H stable. Continue to monitor CBC and BMP. Continue IV antibiotic for underlying pneumonia. Follow critical care and ID recommendation. 10/07: Remains on mechanical ventilation. No active bleeding, H&H stable. Critical care following, wean off ventilation as tolerated. 10/08: Patient had another cardiac arrest last night. Remains on mechanical ventilation, update family. Continue supportive care -poor prognosis 10/09: Called patient mother and discussed about patient care and management. Answered all question to best of my knowledge and family satisfaction. Patient remains on mechanical ventilation, cardiac arrest x2 so far. Critically sick, poor prognosis 10/10: remains on mechanical ventilation. h/h stable, no active bleeding. monitor CBC/BMP 10/11: WBC trended up with diarrhea, started on vancomycin po. remains on MV, off pressor, tolerating TF 10/12: remains on MV, off pressor, tolerating TF. called family for update but unable to reach, could not leave message as it was full. cont supportive care, wean off vent as tolerated. 10/13/2020; patient is on mechanical ventilation, tolerating tube feeding. Patient has labored breathing. Neuro was consulted and recommend MRI. Patient is on Precedex. Rectal tube in place. 10/14/2020; patient is on mechanical ventilation, Precedex. Patient had fever and blood culture ordered. Patient is on IV vancomycin per ID recommendation. Neuro consulted and recommend MRI. Continue to monitor. Prognosis is guarded. 10/15/2020; patient is on mechanical ventilation, Precedex. Patient had fever and blood culture ordered. Patient is on IV vancomycin per ID recommendation. Neuro consulted and recommend MRI. Continue to monitor. Prognosis is guarded. 1/2: Remains with C.DIFF and Bactermia, Poor prognosis. No purposeful movement. MRI and EEG discussed with Intensvisit, Continue aggressive BP control. 3: Blood pressure better controlled MRI done 10/15 shows mild improvement in e monica. We will continue to monitor mother was at bedside yesterday. Nursing documentation trach and PEG discussed with the mother including goals of care. She is still in denial about the gravity of her daughters her condition which is understandable considering her age. Continue aggressive management at this time. Await for bacteremia to clear by ID before placing PICC line. 10/19: Patient for possible PEG and Trach, ID following, repeat cultures remain negative. Poor prognosis 10/20: Pt noted to DVT and SVT in the RUE, Vascular consult and will also obtain Hematology for possible considering changing in Anticoagulation. CONTINUE TO MONITOR H/H and PLT. Family updated by Intensivit. Heparin gtt started. Will check CBC and BMP 10/21: Continue supporive care, Diarrhea now resolving, But still with persistent Fever, May need repeat CT/AP per ID, still with profused Encephalopathy 10/22: Continue supportive care, weaning, awaiting repeat Imaging. FOLLOW Fever curve. Enoxparin restarted 10/23: Continue supportive care, wean as tolerated. 10/24; Started on CPAP trial, discussed with pulmonary, still with diarrhea. 10/25: Patients seen and examined, no clinical changes, still with diarrhea. ?meaningful recovery. 10/26: Clinically unchanged, continue CPAP trial, Will discuss with Neurology about re-evaluation, ?Need for repeat CT head. ?PRESS considering initial elevated BP, now stable. 10/27; tracheostomy on vent, weaning trials, vital signs noted, poor prognosis 10/28; unable to wean, tracheostomy on vent. Sepsis. Continue current management. Consults and recommendations noted and appreciated 10/30/2020;Patient on T-piece 5 L of oxygen not in acute distress, noncommunicative The high probability of a clinically significant, sudden or life threatening deterioration of the [MULTIPLE ORGAN] system(s) required my full and direct attention, intervention and personal management. The aggregate critical care time was [40 ] minutes. This time is in addition to time spent performing reported procedures but includes the following: [X] Data Review and interpretation [X] Patient assessment and monitoring of vital signs [X] Documentation [X] Medication orders and management History Interval history: I have examined the patient in ICU this morning Patient tracheostomy on T-piece nonoxygen Patient is noncommunicative unresponsive Vital signs noted Hospitalist Physical - Constitutional Vitals: Temp Pulse Resp BP Pulse Ox 99 F 105 H 20 126/75 99 10/31/20 16:00 10/31/20 17:00 10/31/20 17:00 10/31/20 17:00 10/31/20 17:20 General appearance: Present: mild distress, well-nourished, obese, other (Tracheostomy on T-piece) - EENT Eyes: Present: PERRL, EOM intact - Neck Neck: Present: supple, normal ROM, other (Tracheostomy in place) - Respiratory Respiratory effort: normal Respiratory: bilateral: diminished, rhonchi, negative: rales, wheezing - Cardiovascular Rhythm: regular Heart Sounds: Present: S1 & S2 - Extremities Extremities: no ischemia, No edema - Abdominal General gastrointestinal: soft, non-tender, non-distended, normal bowel sounds - Integumentary Integumentary: Present: clear, warm - Psychiatric Psychiatric: appropriate mood/affect, cooperative - Neurologic Neurologic: CNII-XII intact, moves all extremities HEART Score - HEART Score Age: < 45 Risk factors: 1-2 risk factors - Critical Actions Critical Actions: >7 pts:50-65% risk of adverse cardiac event. Early invasive measures Results - Labs CBC & Chem 7: 10/29/20 07:56 10/29/20 07:56 Labs: Laboratory Last Values WBC 13.6 K/mm3 (4.5-11.0) H 10/29/20 07:56 RBC 3.88 M/mm3 (3.65-5.03) 10/29/20 07:56 Hgb 10.9 gm/dl (10.1-14.3) 10/29/20 07:56 Hgb Comment See scanned result 10/04/20 Unknown Hct 32.4 % (30.3-42.9) 10/29/20 07:56 MCV 84 fl (79-97) 10/29/20 07:56 MCH 28 pg (28-32) 10/29/20 07:56 MCHC 34 % (30-34) 10/29/20 07:56 RDW 17.0 % (13.2-15.2) H 10/29/20 07:56 Plt Count 437 K/mm3 (140-440) 10/29/20 07:56 Lymph % (Auto) 11.2 % (13.4-35.0) L 10/20/20 16:52 [place] % (Auto) 8.1 % (0.0-7.3) H 10/20/20 16:52 Eos % (Auto) 0.8 % (0.0-4.3) 10/20/20 16:52 Baso % (Auto) 1.1 % (0.0-1.8) 10/20/20 16:52 Lymph # (Auto) 2.1 K/mm3 (1.2-5.4) 10/20/20 16:52 [place] # (Auto) 1.5 K/mm3 (0.0-0.8) H 10/20/20 16:52 Eos # (Auto) 0.2 K/mm3 (0.0-0.4) 10/20/20 16:52 Baso # (Auto) 0.2 K/mm3 (0.0-0.1) H 10/20/20 16:52 Add Manual Diff Complete 10/29/20 07:56 Total Counted 100 10/29/20 07:56 Seg Neutrophils % 78.8 % (40.0-70.0) H 10/20/20 16:52 Seg Neuts % (Manual) 80.0 % (40.0-70.0) H 10/29/20 07:56 Band Neutrophils % 2.0 % 10/15/20 05:50 Lymphocytes % (Manual) 15.0 % (13.4-35.0) 10/29/20 07:56 Reactive Lymphs % (Man) 1.0 % 10/02/20 12:18 Monocytes % (Manual) 4.0 % (0.0-7.3) 10/29/20 07:56 Eosinophils % (Manual) 1.0 % (0.0-4.3) 10/29/20 07:56 Myelocytes % 2.0 % 10/02/20 13:05 Metamyelocytes % 1.0 % 10/14/20 04:00 Nucleated RBC % Not Reportable 10/29/20 07:56 Seg Neutrophils # 14.8 K/mm3 (1.8-7.7) H 10/20/20 16:52 Seg Neutrophils # Man 10.9 K/mm3 (1.8-7.7) H 10/29/20 07:56 Band Neutrophils # 0.0 K/mm3 10/29/20 07:56 Lymphocytes # (Manual) 2.0 K/mm3 (1.2-5.4) 10/29/20 07:56 Abs React Lymphs (Man) 0.0 K/mm3 10/29/20 07:56 Monocytes # (Manual) 0.5 K/mm3 (0.0-0.8) 10/29/20 07:56 Eosinophils # (Manual) 0.1 K/mm3 (0.0-0.4) 10/29/20 07:56 Basophils # (Manual) 0.0 K/mm3 (0.0-0.1) 10/29/20 07:56 Metamyelocytes # 0.0 K/mm3 10/29/20 07:56 Myelocytes # 0.0 K/mm3 10/29/20 07:56 Promyelocytes # 0.0 K/mm3 10/29/20 07:56 Blast Cells # 0.0 K/mm3 10/29/20 07:56 WBC Morphology Not Reportable 10/29/20 07:56 Hypersegmented Neuts Not Reportable 10/29/20 07:56 Hyposegmented Neuts Not Reportable 10/29/20 07:56 Hypogranular Neuts Not Reportable 10/29/20 07:56 Smudge Cells Not Reportable 10/29/20 07:56 Toxic Granulation Not Reportable 10/29/20 07:56 Toxic Vacuolation Not Reportable 10/29/20 07:56 Dohle Bodies Not Reportable 10/29/20 07:56 Pelger-Huet Anomaly Not Reportable 10/29/20 07:56 Ester Rods Not Reportable 10/29/20 07:56 Platelet Estimate Consistent w auto 10/29/20 07:56 Clumped Platelets Not Reportable 10/29/20 07:56 Plt Clumps, EDTA Not Reportable 10/29/20 07:56 Large Platelets Few 10/29/20 07:56 Giant Platelets Not Reportable 10/29/20 07:56 Platelet Satelliting Not Reportable 10/29/20 07:56 Plt Morphology Comment Not Reportable 10/29/20 07:56 RBC Morphology Not Reportable 10/29/20 07:56 Dimorphic RBCs Not Reportable 10/29/20 07:56 Polychromasia Rare 10/29/20 07:56 Hypochromasia Few 10/29/20 07:56 Poikilocytosis Not Reportable 10/29/20 07:56 Anisocytosis Not Reportable 10/29/20 07:56 Microcytosis Not Reportable 10/29/20 07:56 Macrocytosis Not Reportable 10/29/20 07:56 Spherocytes Not Reportable 10/29/20 07:56 Pappenheimer Bodies Not Reportable 10/29/20 07:56 Sickle Cells Not Reportable 10/29/20 07:56 Target Cells Few 10/29/20 07:56 Tear Drop Cells Not Reportable 10/29/20 07:56 Ovalocytes Not Reportable 10/29/20 07:56 Stomatocytes Few 10/14/20 04:00 Helmet Cells Not Reportable 10/29/20 07:56 [place] Bodies Not Reportable 10/29/20 07:56 [place] Rings Not Reportable 10/29/20 07:56 [place] Cells Not Reportable 10/29/20 07:56 Bite Cells Not Reportable 10/29/20 07:56 Crenated Cell Not Reportable 10/29/20 07:56 Elliptocytes Not Reportable 10/29/20 07:56 Acanthocytes (Spur) Not Reportable 10/29/20 07:56 Rouleaux Not Reportable 10/29/20 07:56 Hemoglobin C Crystals Not Reportable 10/29/20 07:56 Schistocytes Not Reportable 10/29/20 07:56 Malaria parasites Not Reportable 10/29/20 07:56 Sickle Cell Solubility See scanned result 10/04/20 Unknown Hemoglobin A See scanned result 10/04/20 Unknown Hemoglobin A2 See scanned result 10/04/20 Unknown Hemoglobin A2 Prime See scanned result 10/04/20 Unknown Hemoglobin C See scanned result 10/04/20 Unknown Hemoglobin D See scanned result 10/04/20 Unknown Hemoglobin E See scanned result 10/04/20 Unknown Hgb F Diffential Stain See scanned result 10/04/20 Unknown Hemoglobin F Quant See scanned result 10/04/20 Unknown Hemoglobin G See scanned result 10/04/20 Unknown Hemoglobin S See scanned result 10/04/20 Unknown Hemoglobin [place] See scanned result 10/04/20 Unknown Hemoglobin [place] See scanned result 10/04/20 Unknown Hemoglobin Analilia See scanned result 10/04/20 Unknown Variant Hemoglobin See scanned result 10/04/20 Unknown Abnorm Hgb IEF Confirm See scanned result 10/04/20 Unknown Hemoglobin Interpret See scanned result 10/04/20 Unknown Hemoglobinopathy Note See scanned result 10/04/20 Unknown Sharad Bodies Not Reportable 10/29/20 07:56 Hem Pathologist Commnt No 10/29/20 07:56 PT 13.6 Sec. (12.2-14.9) 10/21/20 13:54 INR 1.06 (0.87-1.13) 10/21/20 13:54 APTT 31.6 Sec. (24.2-36.6) 10/03/20 00:40 Fibrinogen 336 mg/dl (211-480) 10/04/20 10:00 D-Dimer > 58061 ng/mlDDU (0-234) H 10/04/20 10:00 ABG pH 7.459 pH Units (7.350-7.450) H 10/26/20 10:30 POC ABG pCO2 20.7 mmHg (32.0-48.0) L 10/13/20 07:18 ABG pCO2 32.4 mm Hg 10/26/20 10:30 POC ABG pO2 137.9 mmHg (83-108) H 10/13/20 07:18 ABG pO2 112.2 mm Hg (80.0-90.0) H 10/26/20 10:30 POC ABG HCO3 14.8 10/13/20 07:18 ABG HCO3 22.5 mmol/L (20.0-26.0) 10/26/20 10:30 ABG O2 Saturation 98.2 % (95.0-99.0) 10/26/20 10:30 ABG O2 Content 18.5 (0.0-44) 10/26/20 10:30 POC ABG Base Excess -6.9 10/13/20 07:18 ABG Base Excess -0.6 mmol/L (-2.0-3.0) 10/26/20 10:30 ABG Hemoglobin 13.5 gm/dl (12.0-16.0) 10/26/20 10:30 ABG Oxyhemoglobin 98.3 (94-98) H 10/13/20 07:18 ABG Carboxyhemoglobin 1.3 % (0.0-5.0) 10/26/20 10:30 ABG Methemoglobin 0.5 % (0.0-1.5) 10/26/20 10:30 ABG Sodium 135.9 mmol/L (136.0-145.0) L 10/13/20 07:18 ABG Potassium 3.7 mmol/L (3.40-4.50) 10/13/20 07:18 ABG Chloride 111.0 mmol/L (98-107) H 10/13/20 07:18 ABG Glucose 109 mg/dL (65-95) H 10/13/20 07:18 VBG pH 6.949 (7.320-7.420) L* 10/02/20 Unknown Oxyhemoglobin 96.5 % (95.0-99.0) 10/26/20 10:30 Carboxyhemoglobin 0.3 (0.5-1.5) L 10/13/20 07:18 FiO2 25 % 10/26/20 10:30 Sodium 139 mmol/L (137-145) 10/27/20 07:53 Potassium 4.6 mmol/L (3.6-5.0) 10/29/20 07:56 Chloride 104.7 mmol/L (98-107) 10/27/20 07:53 Carbon Dioxide 23 mmol/L (22-30) 10/27/20 07:53 Anion Gap 16 mmol/L 10/27/20 07:53 BUN 20 mg/dL (7-17) H 10/27/20 07:53 Creatinine 0.6 mg/dL (0.6-1.2) 10/27/20 07:53 Estimated GFR > 60 ml/min 10/27/20 07:53 BUN/Creatinine Ratio 33 % 10/27/20 07:53 Glucose 112 mg/dL (65-100) H 10/27/20 07:53 POC Glucose 102 mg/dL (70-105) 10/31/20 16:49 Lactic Acid 1.90 mmol/L (0.7-2.0) 10/04/20 22:00 Uric Acid 7.5 mg/dL (3.5-7.6) 10/02/20 13:05 Calcium 9.7 mg/dL (8.4-10.2) 10/27/20 07:53 Ionized Calcium 4.4 mg/dL (4.8-5.6) L 10/07/20 21:00 Phosphorus 4.70 mg/dL (2.5-4.5) H 10/29/20 07:56 Magnesium 2.00 mg/dL (1.7-2.3) 10/29/20 07:56 Total Bilirubin 0.40 mg/dL (0.1-1.2) 10/27/20 07:53 AST 83 units/L (5-40) H 10/27/20 07:53 ALT 30 units/L (7-56) 10/27/20 07:53 Alkaline Phosphatase 117 units/L (35-129) 10/27/20 07:53 Lactate Dehydrogenase 769 units/L (91-180) H 10/02/20 13:05 NT-Pro-B Natriuret Pep 2788 pg/mL (0-450) H 10/04/20 10:00 Total Protein 7.2 g/dL (6.3-8.2) 10/27/20 07:53 Albumin 3.8 g/dL (3.9-5) L 10/27/20 07:53 Albumin/Globulin Ratio 1.1 % 10/27/20 07:53 Procalcitonin 0.06 ng/mL (<0.15) 10/27/20 07:53 Arterial Blood Glucose 109 mg/dL (65-95) H 10/13/20 07:18 Arterial Blood Ionized Calcium 4.6 mg/dL (4.6-5.3) 10/13/20 07:18 Urine Color Yellow (Yellow) 10/11/20 13:26 Urine Turbidity Clear (Clear) 10/11/20 13:26 Urine pH 7.0 (5.0-7.0) 10/11/20 13:26 Ur Specific [place] 1.014 (1.003-1.030) 10/11/20 13:26 Urine Protein 100 mg/dl mg/dL (Negative) 10/11/20 13:26 Urine Glucose (UA) Neg mg/dL (Negative) 10/11/20 13:26 Urine Ketones Neg mg/dL (Negative) 10/11/20 13:26 Urine Blood Mod (Negative) 10/11/20 13:26 Urine Nitrite Neg (Negative) 10/11/20 13:26 Urine Bilirubin Neg (Negative) 10/11/20 13:26 Urine Urobilinogen < 2.0 mg/dL (<2.0) 10/11/20 13:26 Ur Leukocyte Esterase Sm (Negative) 10/11/20 13:26 Urine WBC (Auto) 24.0 /HPF (0.0-6.0) H 10/11/20 13:26 Urine RBC (Auto) 59.0 /HPF (0.0-6.0) 10/11/20 13:26 Urine Bacteria (Auto) 1+ /HPF (Negative) 10/11/20 13:26 Urine Mucus Few /HPF 10/11/20 13:26 Vancomycin Trough 12.6 ug/mL (5.0-20.0) 10/21/20 13:54 Random Vancomycin 10.7 ug/mL (0-40.0) 10/16/20 13:09 Phenytoin 5.7 ug/mL (10.0-20.0) L 10/13/20 07:00 C. difficile Tox (PCR) Positive (Negative) 10/16/20 10:22 Coronavirus (PCR) Negative (Negative) 10/08/20 14:15 Blood Type O POSITIVE 10/02/20 12:50 Antibody Screen Negative 10/02/20 12:50 Crossmatch See Detail 10/02/20 12:50 - Diagnostic Impressions Diagnostic Impressions: Echocardiogram 10/03/20 13:42 Transthoracic Echocardiogram Indication: S/P Cardiac Arrest R/O Cardiomyopathy BP: 133/71 Conclusions *Global left ventricular systolic function is normal. *The estimated ejection fraction is 60-65%. *There is trace of mitral regurgitation. *The right 0heart chambers are both slightly dilated. *There is mild tricuspid regurgitation. *There is mild-moderate pulmonary hypertension. *The right ventricular systolic pressure is calculated at 44 mmHg. *The study quality is technically difficult. Findings Procedure Info: The study quality is technically difficult. The study is technically limited due to patient body habitus. The study was technically limited due to the patient's inability to lay in the left lateral decubitus position. Left Ventricle: The left ventricular chamber size is normal. There is no left ventricular hypertrophy. Global left ventricular systolic function is normal. The estimated ejection fraction is 60-65%. Left Atrium: The left atrial chamber size is normal. Right Ventricle: The right ventricle is slightly dilated. Right Atrium: The right atrium is mildly dilated. Aortic Valve: The aortic valve leaflets are mildly thickened. There is no evidence of aortic regurgitation. There is no evidence of aortic stenosis. Mitral Valve: The mitral valve leaflets are mildly thickened. There is trace of mitral regurgitation. There is no evidence of mitral stenosis. Tricuspid Valve: There is mild tricuspid regurgitation. The right ventricular systolic pressure is calculated at 44 mmHg. There is evidence of mild pulmonary hypertension. Pulmonic Valve: There is trace pulmonic regurgitation. Pericardium: There is no pericardial effusion. Aorta: There is no dilatation of the ascending aorta. There is no dilatation of the aortic root. Venous: The inferior vena cava is dilated. Measurements Chambers 2D Name Value Normal Range IVSd (2D) 1 cm (0.6 - 1.1) LVPWd (2D) 1.01 cm (0.6 - 1.1) LVIDd (2D) 4.58 cm (3.7 - 5.6) LVIDs (2D) 3.17 cm (2 - 3.8) LV FS (2D) 30.93 % - EF Teichholz (2D) 58.66 % - Ao root diameter (2D) 2.94 cm (2 - 3.7) Volumes/Mass Name Value Normal Range LA ESV SP 4CH (A/L) 72.82 ml - LA ESV SP 2CH (A/L) 66.86 ml - LA ESV BP (A/L) 74.49 ml - LA ESV SP 4CH (MOD) 71.03 ml - LA ESV SP 2CH (MOD) 64.3 ml - LV EDV SP 4CH (MOD) 98.82 ml - LV ESV SP 4CH (MOD) 24.8 ml - EF SP 4CH (MOD) 74.9 % - LV EDV SP 2CH (MOD) 86.1 ml - LV ESV SP 2CH (MOD) 36.93 ml - EF SP 2CH (MOD) 57.11 % - LV EDV BP 94.4 ml - LV ESV BP 32.66 ml - BP EF (MOD) 65.4 % - Diastolic/Systolic Function Name Value Normal Range MV E-wave Vmax 1.04 m/sec - MV deceleration time 160.46 msec - MV A-wave Vmax 0.92 m/sec - MV E:A ratio 1.14 ratio - Aortic Valve Name Value Normal Range AV Vmax 2.12 m/sec - AV VTI 22.37 cm - AV peak gradient 17.95 mmHg - AV mean gradient 7.29 mmHg - LVOT diameter 2.01 cm - LVOT Vmax 1.8 m/sec - LVOT VTI 27.17 cm - LVOT peak gradient 12.91 mmHg - LVOT mean gradient 6.83 mmHg - SV LVOT 86.42 ml - ANITA (continuity Vmax) 2.7 cm2 - ANITA (continuity VTI) 3.86 cm2 - Ascending Ao 3.18 cm - Tricuspid Valve Name Value Normal Range TV E-wave Vmax 0.88 m/sec - TR Vmax 3.01 m/sec - TR peak gradient 36.27 mmHg - RAP 8 mmHg - RVSP 44 mmHg - IVC diameter 2.65 cm (1.2 - 2.3) Pulmonic Valve/Qp:Qs Name Value Normal Range PV Vmax 1.22 m/sec - PV peak gradient 5.91 mmHg - RVOT Vmax 0.87 m/sec - RVOT VTI 13.32 cm - RVOT peak gradient 3 mmHg - PV acceleration time 110.37 msec - [place]/IV: Voiding Method Indwelling Catheter IV Catheter Type [Right Foot] INT / Saline Lock IV Catheter Type [Left Forearm Peripheral IV ] IV Catheter Type [Left Wrist] INT / Saline Lock IV Catheter Type [Right Hand] INT / Saline Lock IV Catheter Type [Right INT / Saline Lock Antecubital] IV Catheter Type [Right Upper INT / Saline Lock arm] IV Catheter Type [Left Triple Lumen Cath Internal Jugular] IV Catheter Type [Left Hand] Peripheral IV IV Catheter Type [Left Peripheral IV Antecubital] Active Medications - Current Medications Current Medications: Generic Name Dose Route Start Last Admin Trade Name Freq PRN Reason Stop Dose Admin Acetaminophen 650 mg 10/05/20 16:34 10/16/20 00:13 Acetaminophen 325 Mg/10.15 Ml Oral Liqd Unit Dose FEEDTUBE 650 mg Q6H PRN Administration Non Cardiac Pain or Temp>100.5 Lipase/Protease/Amylase 1 each 10/05/20 11:09 Lipase 10,500/Protease 25,000/Amylase 43,750 (Units) Dr Barakat FEEDTUBE PRN PRN For Clogged Feeding Tube Enoxaparin Sodium 40 mg 10/22/20 10:00 10/31/20 09:30 Enoxaparin 40 Mg/0.4 Ml Inj SUB-Q 40 mg DAILY ERINN Administration Protocol Famotidine 20 mg 10/07/20 10:00 10/31/20 09:32 Famotidine 20 Mg Tab PO 20 mg BID ERINN Administration Furosemide 40 mg 10/17/20 10:00 10/31/20 09:32 Furosemide 40 Mg Tab PO 40 mg QDAY ERINN Administration Glycopyrrolate 1 mg 10/20/20 10:00 10/31/20 09:31 Glycopyrrolate 1 Mg Tab PO 1 mg BID ERINN Administration Hydralazine HCl 20 mg 10/07/20 11:49 10/17/20 07:20 Hydralazine 20 Mg/1 Ml Inj IV 20 mg Q6H PRN Administration SBP >170 Hydralazine HCl 50 mg 10/17/20 09:00 10/31/20 14:08 Hydralazine 25 Mg Tab PO 50 mg Q8HR ERINN Administration Hydrophilic Ointment 1 applic 10/04/20 06:55 Lip Therapy Vaseline TP Q2HR PRN Dry Lips Dextrose 1,000 mls @ 75 mls/hr 10/13/20 11:00 10/31/20 15:20 D10w IV 75 mls/hr DIRECT ERINN Infusion Labetalol HCl 300 mg 10/17/20 09:00 10/31/20 14:08 Labetalol 100 Mg Tab PO 300 mg TID ERINN Administration Multi-Ingred Cream/Lotion/Oil/Oint 1 applic 10/04/20 06:55 Mineral Oil/Petrolatum, White Ophth Oint 3.5 Gm OU Q4HR PRN Dry Eye(s) Simple Syrup 15 ml 10/05/20 11:09 Simple Syrup 15 Ml FEEDTUBE PRN PRN Hypoglycemia Simple Syrup 30 ml 10/05/20 11:09 Simple Syrup 15 Ml FEEDTUBE PRN PRN Hypoglycemia Sodium Bicarbonate 325 mg 10/05/20 11:09 Sodium Bicarbonate 325 Mg Tab FEEDTUBE PRN PRN For Clogged Feeding Tube Sodium Bicarbonate 1,300 mg 10/13/20 14:00 10/31/20 14:08 Sodium Bicarbonate 650 Mg Tab PO 1,300 mg TID ERINN Administration Topiramate 50 mg 10/05/20 11:00 10/31/20 09:30 Topiramate Tab 25 Mg Tab PO 50 mg Q12HR ERINN Administration Nutrition/Malnutrition Assess - Dietary Evaluation Nutrition/Malnutrition Findings: Nutrition Notes Start: 10/04/20 11:13 Freq: Status: Active Protocol: Document 10/30/20 14:24 CW (Rec: 10/30/20 14:39 CW [email or web address]) Co-Sign 10/30/20 14:24 LP Nutrition Notes Initial or Follow up Reassessment Current Diagnosis Acute Kidney Injury, Respiratory Failure Other Pertinent Diagnosis Cardiac arrest, s/p c-sectuion and supracervial hysterectomy Current Diet Promote at 75ml/hr Labs/Tests Phos 4.7 BG 99 Pertinent Medications lasix D10w at 50ml/hr Height 5 ft 8 in Weight 111.2 kg [place] Body Weight (kg) 63.63 BMI 37.3 Weight change and time frame Wt change noted, pt on lasix Weight Status Morbidly Obese Subjective/Other Information FU for TF tolerance, BG labs. Pt remains intubated with TF running at goal. Per RD/MD discussion, will try changing pt TF formula to help regulate BG and wean off D10w. Percent of energy/protein needs met: 100%/74% Burn Absent Trauma Absent GI Symptoms None Food Allergy Yes Current % PO Negligible Minimum of two criteria No Fluid Accumulation Mild (non-severe) #1 Nutrition Diagnosis Inadequate oral intake Diagnosis Progress(for reassessment Continues documentation) Is patient on ventilator? Yes Is Patient Ambulatory and/or Out of Bed No REE-([facility]-confined to bed) 2246.340 Kcal/Kg value to use for calculation 16 Approximate Energy Requirements Using 1779 kcal/Kg Calculation Used for Recommendations Kcal/kg Additional Notes Protein needs are up to 159g ( up to 2.5g/kg IBW) Fluid needs are 1ml/kcal Nutrition Intervention Change Diet Order: Change TF formula Nutrition Support: Jevity 1.2 at 60ml/hr. Flush 100ml q4h. Kcal 1,782 Protein (gm) 87 Fluid (mL) 1,259 Goal #1 TF tolerance Goal #2 Meet at least 75% of energy and protein needs Anticipated Discharge Needs: Unable to determine at this time Follow-Up By: 11/02/20 Additional Comments FU for new TF order, BG labs
[2020-10-31] MEDS: ACETAMINOPHEN 325 MG/10.15 ML ORAL LIQD UNIT DOSE FEEDTUBE PRN (23:17)
[2020-11-01 06:12] LABS: Alanine Aminotransferase 31 units/L (7-56); Albumin 3.6 g/dL (3.9-5); Blood Urea Nitrogen 16 mg/dL (7-17); Calcium 9.3 mg/dL (8.4-10.2); Hemolysis Index 2
[2020-11-01 06:13] LABS: BUN/Creatinine Ratio 23
[2020-11-01] MEDS: hydrALAZINE 25 MG TAB PO SCH ×3 (06:15→22:55)
[2020-11-01] MEDS: DEXTROSE 10% IN WATER 1,000 ML IV SCH ×2 (06:15→19:42)
[2020-11-01] MEDS: SODIUM BICARBONATE 650 MG TAB PO SCH ×3 (08:40→19:42)
[2020-11-01] MEDS: TOPIRAMATE TAB 25 MG TAB PO SCH ×2 (09:16→22:52)
[2020-11-01] MEDS: GLYCOPYRROLATE 1 MG TAB PO SCH (09:16)
[2020-11-01] MEDS: FUROSEMIDE 40 MG TAB PO SCH (09:16)
[2020-11-01] MEDS: FAMOTIDINE 20 MG TAB PO SCH ×2 (09:16→22:52)
[2020-11-01] MEDS: ENOXAPARIN 40 MG/0.4 ML INJ SUB-Q SCH (09:17)
--- NOTE | 2020-11-01 10:36 | Progress Note ---
Assessment and Plan 30 y/o female with Eclampsia, s/p emergent section with DIC, acute respiratory failure and worsening renal function. 11/01/20: Will stop Robinol as this may be making secretions to thick. Huge risk for mucous plugging given mental state. Continue D10 and waiting on labs from yesterday. LFT's repeated and AST elevated along with alk phos. Both of these were elevated on admission, then resolved and now are elevated again. In current clinical state, not sure what to make of those numbers. They do not help with trying to figure out hypoglycemia and persistent need for D10. Continue IMCU care. 10/31/20: Will order midline for IV team vs peripheral IV's (multiple). Needs access for d10 as we have not been able to figure out why she is so hypoglyemic. Will measure serum insulin levels and C-peptide levels, as well proinsulin. All of these labs are sendouts so will have to call down to ask how to order as they are not coming [facility]. Given her requirement for supplemental IV sugar, not a candidate for floor transfer. 10/30/20: Continue step down monitoring for now. If does well the next 24-36 hours, then will consider floor transfer. Really needs to continue PT with PROM. Will speak with CM about options for here now that critical needs are becoming minimal. 10/29/20: Off vent now for 24 hours. Tolerating T-Piece. Will transition to step down for a few days. If does well there, consider transition to floor. Continue PT. 10/28/20: Daily T-piece trials for as long as tolerated. Attempt to push further daily. OT does not do passive range of motion. Per PT note will do passive range of motion with patient. Guarded prognosis. Hoping to wean off vent and transition to floor. 10/27/20: Continue daily T-piece trials for as long as tolerated. Ok with resting on either PSV or full rate if needed at night but need to strengthen her respiratory muscles. PT/OT if possible. Will transition to step down prior to going to floor to insure stability. 10/26/20: Will obtain ABG today. If good, will attempt on T-piece later. Continue PT/OT. Will speak with CM about possibility of LTACH or nursing facility that can take trached patients. 10/23/20: Daily PSV trials for as long as patient will tolerate. Needs PT/OT consult for passive range of motion. 10/22/20: Will start prolonged PSV trials. Attempt to wean from vent and then transition to floor to see if mental status improves. Continue tube feeds. 10/21/20: Trach and peg placed. No sedation. Restart Lovenox for Upper Ext DVT. Restart feeds when surgery states ok to use PEG. C. Diff treatment per ID. Guarded prognosis. Will be a skilled nursing wean. Hopeful to wean off vent at least and then can transfer to floor. 10/20/20: NPO after midnight. DVT study just read from 10/14 on yesterday showing upper ext DVT. Started on Lovenox but need to hold therapy until after surgery. could be source of fevers. No sedation. 10/19/20: Stable BP. Will meet/talk with family at noon over the phone with myself and case management. Need to discuss goals of care and what next steps would be. Patient would need trach and peg and transfer to LTACH if family ok with this. Follow up speciation of GNR's in blood. Has been on Cefepime. Continues therapy for C. Diff. Guarded prognosis. Continue daily PSV trials bu t not ready for extubation secondary to mental state. 10/18/20: Blood pressure is much better with the addition of meds started on yesterday. Need to have family meeting jesica in regards to goals of care. Continue Daily PSV trials but not ready for extubation. Continue therapy for C. Diff per ID. 10/17/20: CT scan was of no help in regards to fevers. C. Diff is positive and BP now is more uncontrolled despite increasing labetalol. Today will increase to 300 TID. Added TID Hydralazine and added PO lasix given her mild pulmonary htn seen on echo. Spoke with mother over the phone and she requests to come see the patient. Given current circumstances, will allow her to come briefly today and then will speak with her at the bedside. No neurology is available at the time and suspect these will be the majority of her questions. Tolerated PSV briefly yesterday and will do again today but not for extended periods as given her mental state she is not a candidate for extubation. I will also ask the mother about panel installer care (trach and peg) when she comes today. Overall prognosis is guarded to poor. If oral meds cannot regulate blood pressure, may need Cardene drip. Continue therapy for C. Diff per ID. Subjective Date of service: 11/01/20 Principal diagnosis: Eclampsia/HELLP Syndrome, ADOLPH, DIC; s/p , s/p supracervical hyst Interval history: No acute event. Spoke with RT about secretions. Very thick. Objective Vital Signs - 12hr 10/31/20 10/31/20 10/31/20 23:00 23:17 23:19 Temperature Pulse Rate 118 H 101 H Respiratory 18 23 Rate Blood Pressure 127/69 127/69 O2 Sat by Pulse 97 Oximetry O2 Sat by Pulse Oximetry [ Assessment] 10/31/20 11/01/20 11/01/20 23:23 00:00 00:37 Temperature 98.3 F Pulse Rate 93 H 102 H 92 H Respiratory 31 H Rate Blood Pressure 127/69 129/54 O2 Sat by Pulse 97 Oximetry O2 Sat by Pulse Oximetry [ Assessment] 11/01/20 11/01/20 11/01/20 01:00 02:00 03:00 Temperature Pulse Rate 84 102 H 104 H Respiratory 22 31 H 21 Rate Blood Pressure 106/48 106/48 111/74 O2 Sat by Pulse 98 99 100 Oximetry O2 Sat by Pulse Oximetry [ Assessment] 11/01/20 11/01/20 11/01/20 03:48 03:57 04:00 Temperature 98.6 F Pulse Rate 104 H Respiratory 29 H Rate Blood Pressure 126/62 O2 Sat by Pulse 100 98 Oximetry O2 Sat by Pulse Oximetry [ Assessment] 11/01/20 11/01/20 11/01/20 04:06 04:09 04:36 Temperature Pulse Rate 98 H Respiratory Rate Blood Pressure O2 Sat by Pulse 99 Oximetry O2 Sat by Pulse 99 Oximetry [ Assessment] 11/01/20 11/01/20 11/01/20 05:00 06:00 06:15 Temperature Pulse Rate 96 H 84 96 H Respiratory 27 H 25 H Rate Blood Pressure 125/63 113/59 113/59 O2 Sat by Pulse 96 99 Oximetry O2 Sat by Pulse Oximetry [ Assessment] 11/01/20 11/01/20 07:00 08:39 Temperature Pulse Rate 103 H 92 H Respiratory 30 H Rate Blood Pressure 105/61 122/73 O2 Sat by Pulse 97 Oximetry O2 Sat by Pulse Oximetry [ Assessment] Constitutional: comatose, other (critically ill on ventilator trach) Eyes: non-icteric ENT: oropharynx moist, other (orally intubated and not sedated) Neck: other (large in cirumference) Effort: normal Ascultation: Bilateral: clear, diminished breath sounds, other (coarse BS bilaterally w/ mild faint wheezes) Percussion: Bilateral: not dull Cardiovascular: regular rate and rhythm, other (no mrg) Gastrointestinal: normoactive bowel sounds, soft, other (post surgical changes with drain on the left side) Extremities: no cyanosis, pink and warm, anasarca Neurologic: other (unresponsive, not following commands, not tracking) Psychiatric: other (unable to assess) CBC and BMP: 10/29/20 07:56 11/01/20 05:01 ABG, PT/INR, D-dimer: ABG ABG pH 7.459 pH Units (7.350-7.450) H 10/26/20 10:30 POC ABG pCO2 20.7 mmHg (32.0-48.0) L 10/13/20 07:18 ABG pCO2 32.4 mm Hg 10/26/20 10:30 POC ABG pO2 137.9 mmHg (83-108) H 10/13/20 07:18 ABG pO2 112.2 mm Hg (80.0-90.0) H 10/26/20 10:30 POC ABG HCO3 14.8 10/13/20 07:18 ABG O2 Saturation 98.2 % (95.0-99.0) 10/26/20 10:30 PT/INR, D-dimer PT 13.6 Sec. (12.2-14.9) 10/21/20 13:54 INR 1.06 (0.87-1.13) 10/21/20 13:54 D-Dimer > 90422 ng/mlDDU (0-234) H 10/04/20 10:00 Abnormal lab findings: Abnormal Labs 10/02/20 10/02/20 10/02/20 12:03 12:18 12:18 WBC 14.9 H RBC Hgb 9.1 L Hct MCV MCH 22 L MCHC 28 L RDW 17.6 H Plt Count 102 L Lymph % (Auto) [place] % (Auto) Lymph # (Auto) [place] # (Auto) Baso # (Auto) Seg Neutrophils % Seg Neuts % (Manual) 36.0 L Lymphocytes % (Manual) 49.0 H Monocytes % (Manual) Nucleated RBC % 6.0 H Seg Neutrophils # Seg Neutrophils # Man Lymphocytes # (Manual) 7.3 H Monocytes # (Manual) PT INR APTT Fibrinogen D-Dimer ABG pH POC ABG pCO2 POC ABG pO2 ABG pO2 ABG HCO3 ABG Base Excess ABG Hemoglobin ABG Oxyhemoglobin ABG Sodium ABG Potassium ABG Chloride ABG Glucose VBG pH Oxyhemoglobin Carboxyhemoglobin Sodium 134 L Potassium Chloride Carbon Dioxide 12 L BUN 6 L Creatinine Glucose 390 H POC Glucose 451 H Lactic Acid Calcium Ionized Calcium Phosphorus Magnesium AST 135 H ALT 85 H Alkaline Phosphatase 172 H Lactate Dehydrogenase 641 H NT-Pro-B Natriuret Pep Total Protein 5.4 L Albumin 2.3 L Arterial Blood Glucose Arterial Blood Ionized Calcium Urine WBC (Auto) Vancomycin Trough Phenytoin Crossmatch 10/02/20 10/02/20 10/02/20 12:50 13:05 13:05 WBC 38.6 H RBC Hgb 8.9 L Hct 29.0 L MCV 73 L MCH 22 L MCHC RDW 17.2 H Plt Count Lymph % (Auto) [place] % (Auto) Lymph # (Auto) [place] # (Auto) Baso # (Auto) Seg Neutrophils % Seg Neuts % (Manual) Lymphocytes % (Manual) Monocytes % (Manual) Nucleated RBC % 2.0 H Seg Neutrophils # Seg Neutrophils # Man 20.1 H Lymphocytes # (Manual) 10.4 H Monocytes # (Manual) 2.3 H PT INR APTT Fibrinogen D-Dimer ABG pH POC ABG pCO2 POC ABG pO2 ABG pO2 ABG HCO3 ABG Base Excess ABG Hemoglobin ABG Oxyhemoglobin ABG Sodium ABG Potassium ABG Chloride ABG Glucose VBG pH Oxyhemoglobin Carboxyhemoglobin Sodium Potassium Chloride Carbon Dioxide BUN Creatinine Glucose POC Glucose Lactic Acid Calcium Ionized Calcium Phosphorus Magnesium AST 184 H ALT 113 H Alkaline Phosphatase Lactate Dehydrogenase 769 H NT-Pro-B Natriuret Pep Total Protein Albumin Arterial Blood Glucose Arterial Blood Ionized Calcium Urine WBC (Auto) Vancomycin Trough Phenytoin Crossmatch See Detail 10/02/20 10/02/20 10/02/20 16:25 16:35 16:35 WBC RBC Hgb Hct MCV MCH MCHC RDW Plt Count Lymph % (Auto) [place] % (Auto) Lymph # (Auto) [place] # (Auto) Baso # (Auto) Seg Neutrophils % Seg Neuts % (Manual) Lymphocytes % (Manual) Monocytes % (Manual) Nucleated RBC % Seg Neutrophils # Seg Neutrophils # Man Lymphocytes # (Manual) Monocytes # (Manual) PT INR APTT Fibrinogen D-Dimer ABG pH 7.031 L* POC ABG pCO2 POC ABG pO2 ABG pO2 116.8 H ABG HCO3 12.7 L ABG Base Excess -16.9 L ABG Hemoglobin 7.8 L ABG Oxyhemoglobin ABG Sodium ABG Potassium ABG Chloride ABG Glucose VBG pH Oxyhemoglobin 94.9 L Carboxyhemoglobin Sodium Potassium Chloride Carbon Dioxide BUN Creatinine Glucose 403 H POC Glucose Lactic Acid 11.40 H* Calcium 6.3 L D Ionized Calcium Phosphorus Magnesium AST 70 H ALT Alkaline Phosphatase Lactate Dehydrogenase NT-Pro-B Natriuret Pep Total Protein 1.9 L D Albumin 1.2 L Arterial Blood Glucose Arterial Blood Ionized Calcium Urine WBC (Auto) Vancomycin Trough Phenytoin Crossmatch 10/02/20 10/02/20 10/02/20 18:18 18:18 22:30 WBC 11.5 H RBC 2.06 L Hgb 5.5 L* D Hct 17.3 L* D MCV MCH 27 L MCHC RDW 19.5 H Plt Count 60 L Lymph % (Auto) [place] % (Auto) Lymph # (Auto) [place] # (Auto) Baso # (Auto) Seg Neutrophils % Seg Neuts % (Manual) Lymphocytes % (Manual) 8.0 L Monocytes % (Manual) 8.0 H Nucleated RBC % 8.0 H Seg Neutrophils # Seg Neutrophils # Man Lymphocytes # (Manual) 0.9 L Monocytes # (Manual) 0.9 H PT 37.1 H INR 3.71 H APTT 135.8 H* Fibrinogen D-Dimer ABG pH 7.067 L* POC ABG pCO2 POC ABG pO2 ABG pO2 183.0 H ABG HCO3 14.1 L ABG Base Excess -15.1 L ABG Hemoglobin 7.7 L ABG Oxyhemoglobin ABG Sodium ABG Potassium ABG Chloride ABG Glucose VBG pH Oxyhemoglobin Carboxyhemoglobin Sodium Potassium Chloride Carbon Dioxide BUN Creatinine Glucose POC Glucose Lactic Acid Calcium Ionized Calcium Phosphorus Magnesium AST ALT Alkaline Phosphatase Lactate Dehydrogenase NT-Pro-B Natriuret Pep Total Protein Albumin Arterial Blood Glucose Arterial Blood Ionized Calcium Urine WBC (Auto) Vancomycin Trough Phenytoin Crossmatch 10/02/20 10/02/20 10/03/20 Unknown Unknown 00:01 WBC RBC Hgb Hct MCV MCH MCHC RDW Plt Count Lymph % (Auto) [place] % (Auto) Lymph # (Auto) [place] # (Auto) Baso # (Auto) Seg Neutrophils % Seg Neuts % (Manual) Lymphocytes % (Manual) Monocytes % (Manual) Nucleated RBC % Seg Neutrophils # Seg Neutrophils # Man Lymphocytes # (Manual) Monocytes # (Manual) PT 61.1 H INR 6.92 H* APTT 158.7 H* Fibrinogen < 60 L* D-Dimer > 58910 H ABG pH POC ABG pCO2 POC ABG pO2 ABG pO2 ABG HCO3 ABG Base Excess ABG Hemoglobin ABG Oxyhemoglobin ABG Sodium ABG Potassium ABG Chloride ABG Glucose VBG pH 6.949 L* Oxyhemoglobin Carboxyhemoglobin Sodium Potassium Chloride Carbon Dioxide BUN Creatinine Glucose POC Glucose 196 H Lactic Acid Calcium Ionized Calcium Phosphorus Magnesium AST ALT Alkaline Phosphatase Lactate Dehydrogenase NT-Pro-B Natriuret Pep Total Protein Albumin Arterial Blood Glucose Arterial Blood Ionized Calcium Urine WBC (Auto) Vancomycin Trough Phenytoin Crossmatch 10/03/20 10/03/20 10/03/20 00:40 00:40 00:40 WBC RBC Hgb Hct MCV MCH MCHC RDW Plt Count Lymph % (Auto) [place] % (Auto) Lymph # (Auto) [place] # (Auto) Baso # (Auto) Seg Neutrophils % Seg Neuts % (Manual) Lymphocytes % (Manual) Monocytes % (Manual) Nucleated RBC % Seg Neutrophils # Seg Neutrophils # Man Lymphocytes # (Manual) Monocytes # (Manual) PT 15.1 H INR 1.21 H APTT Fibrinogen D-Dimer ABG pH POC ABG pCO2 POC ABG pO2 ABG pO2 ABG HCO3 ABG Base Excess ABG Hemoglobin ABG Oxyhemoglobin ABG Sodium ABG Potassium ABG Chloride ABG Glucose VBG pH Oxyhemoglobin Carboxyhemoglobin Sodium 136 L Potassium Chloride Carbon Dioxide BUN Creatinine 1.6 H D Glucose 106 H POC Glucose Lactic Acid 5.60 H* Calcium 6.5 L Ionized Calcium Phosphorus Magnesium AST 232 H ALT 104 H Alkaline Phosphatase Lactate Dehydrogenase NT-Pro-B Natriuret Pep Total Protein 3.9 L D Albumin 2.4 L Arterial Blood Glucose Arterial Blood Ionized Calcium Urine WBC (Auto) Vancomycin Trough Phenytoin Crossmatch 10/03/20 10/03/20 10/03/20 02:08 02:08 02:08 WBC 17.6 H RBC 3.27 L Hgb 9.9 L D Hct 29.9 L D MCV MCH MCHC RDW 16.5 H Plt Count 75 L Lymph % (Auto) [place] % (Auto) Lymph # (Auto) [place] # (Auto) Baso # (Auto) Seg Neutrophils % Seg Neuts % (Manual) 76.0 H Lymphocytes % (Manual) Monocytes % (Manual) Nucleated RBC % 8.0 H Seg Neutrophils # Seg Neutrophils # Man 13.4 H Lymphocytes # (Manual) Monocytes # (Manual) PT INR APTT Fibrinogen D-Dimer ABG pH POC ABG pCO2 POC ABG pO2 ABG pO2 ABG HCO3 ABG Base Excess ABG Hemoglobin ABG Oxyhemoglobin ABG Sodium ABG Potassium ABG Chloride ABG Glucose VBG pH Oxyhemoglobin Carboxyhemoglobin Sodium Potassium Chloride Carbon Dioxide 19 L BUN Creatinine 1.4 H Glucose 306 H POC Glucose Lactic Acid 10.50 H* Calcium 6.4 L Ionized Calcium Phosphorus Magnesium AST ALT Alkaline Phosphatase Lactate Dehydrogenase NT-Pro-B Natriuret Pep Total Protein Albumin Arterial Blood Glucose Arterial Blood Ionized Calcium Urine WBC (Auto) Vancomycin Trough Phenytoin Crossmatch 10/03/20 10/03/20 10/03/20 02:42 03:59 05:31 WBC RBC Hgb Hct MCV MCH MCHC RDW Plt Count Lymph % (Auto) [place] % (Auto) Lymph # (Auto) [place] # (Auto) Baso # (Auto) Seg Neutrophils % Seg Neuts % (Manual) Lymphocytes % (Manual) Monocytes % (Manual) Nucleated RBC % Seg Neutrophils # Seg Neutrophils # Man Lymphocytes # (Manual) Monocytes # (Manual) PT INR APTT Fibrinogen D-Dimer ABG pH 7.144 L POC ABG pCO2 54.4 H POC ABG pO2 ABG pO2 ABG HCO3 ABG Base Excess ABG Hemoglobin 10.0 L ABG Oxyhemoglobin ABG Sodium ABG Potassium ABG Chloride 108.0 H ABG Glucose 306 H VBG pH Oxyhemoglobin Carboxyhemoglobin Sodium Potassium Chloride Carbon Dioxide BUN Creatinine Glucose POC Glucose 209 H Lactic Acid 9.20 H* Calcium Ionized Calcium Phosphorus Magnesium AST ALT Alkaline Phosphatase Lactate Dehydrogenase NT-Pro-B Natriuret Pep Total Protein Albumin Arterial Blood Glucose 306 H Arterial Blood Ionized Calcium 3.7 L Urine WBC (Auto) Vancomycin Trough Phenytoin Crossmatch 10/03/20 10/03/20 10/03/20 09:00 09:00 09:00 WBC 27.4 H RBC 2.84 L Hgb 8.5 L Hct 25.1 L MCV MCH MCHC RDW 16.1 H Plt Count 72 L Lymph % (Auto) [place] % (Auto) Lymph # (Auto) [place] # (Auto) Baso # (Auto) Seg Neutrophils % Seg Neuts % (Manual) Lymphocytes % (Manual) 11.0 L Monocytes % (Manual) Nucleated RBC % 3.0 H Seg Neutrophils # Seg Neutrophils # Man 18.4 H Lymphocytes # (Manual) Monocytes # (Manual) 1.9 H PT INR APTT Fibrinogen D-Dimer ABG pH POC ABG pCO2 POC ABG pO2 ABG pO2 ABG HCO3 ABG Base Excess ABG Hemoglobin ABG Oxyhemoglobin ABG Sodium ABG Potassium ABG Chloride ABG Glucose VBG pH Oxyhemoglobin Carboxyhemoglobin Sodium Potassium Chloride Carbon Dioxide BUN Creatinine 1.7 H Glucose 216 H POC Glucose Lactic Acid 9.20 H* Calcium 6.3 L Ionized Calcium Phosphorus Magnesium AST 331 H ALT 171 H Alkaline Phosphatase Lactate Dehydrogenase NT-Pro-B Natriuret Pep Total Protein 3.7 L Albumin 1.9 L Arterial Blood Glucose Arterial Blood Ionized Calcium Urine WBC (Auto) Vancomycin Trough Phenytoin Crossmatch 10/03/20 10/03/20 10/03/20 11:20 11:46 11:50 WBC 28.7 H RBC 2.67 L Hgb 8.0 L Hct 23.7 L MCV MCH MCHC RDW 16.6 H Plt Count 76 L Lymph % (Auto) [place] % (Auto) Lymph # (Auto) [place] # (Auto) Baso # (Auto) Seg Neutrophils % Seg Neuts % (Manual) Lymphocytes % (Manual) Monocytes % (Manual) Nucleated RBC % Seg Neutrophils # Seg Neutrophils # Man Lymphocytes # (Manual) Monocytes # (Manual) PT INR APTT Fibrinogen D-Dimer ABG pH POC ABG pCO2 POC ABG pO2 ABG pO2 ABG HCO3 ABG Base Excess ABG Hemoglobin ABG Oxyhemoglobin ABG Sodium ABG Potassium ABG Chloride ABG Glucose VBG pH Oxyhemoglobin Carboxyhemoglobin Sodium Potassium Chloride Carbon Dioxide BUN Creatinine Glucose POC Glucose 125 H Lactic Acid 8.00 H* Calcium Ionized Calcium Phosphorus Magnesium AST ALT Alkaline Phosphatase Lactate Dehydrogenase NT-Pro-B Natriuret Pep Total Protein Albumin Arterial Blood Glucose Arterial Blood Ionized Calcium Urine WBC (Auto) Vancomycin Trough Phenytoin Crossmatch 10/03/20 10/04/20 10/04/20 11:50 00:40 00:40 WBC RBC Hgb 6.8 L Hct 19.4 L* MCV MCH MCHC RDW Plt Count 49 L Lymph % (Auto) [place] % (Auto) Lymph # (Auto) [place] # (Auto) Baso # (Auto) Seg Neutrophils % Seg Neuts % (Manual) Lymphocytes % (Manual) Monocytes % (Manual) Nucleated RBC % Seg Neutrophils # Seg Neutrophils # Man Lymphocytes # (Manual) Monocytes # (Manual) PT INR APTT Fibrinogen D-Dimer ABG pH 7.244 L POC ABG pCO2 POC ABG pO2 ABG pO2 ABG HCO3 ABG Base Excess -4.5 L ABG Hemoglobin 7.3 L ABG Oxyhemoglobin ABG Sodium ABG Potassium ABG Chloride ABG Glucose VBG pH Oxyhemoglobin Carboxyhemoglobin Sodium Potassium Chloride Carbon Dioxide BUN Creatinine Glucose POC Glucose Lactic Acid Calcium Ionized Calcium Phosphorus Magnesium AST ALT Alkaline Phosphatase Lactate Dehydrogenase NT-Pro-B Natriuret Pep Total Protein Albumin Arterial Blood Glucose Arterial Blood Ionized Calcium Urine WBC (Auto) Vancomycin Trough Phenytoin Crossmatch 10/04/20 10/04/20 10/04/20 03:53 10:00 10:00 WBC 14.6 H RBC 2.57 L Hgb 7.6 L Hct 22.5 L MCV MCH MCHC RDW 15.8 H Plt Count 38 L Lymph % (Auto) 7.7 L [place] % (Auto) Lymph # (Auto) 1.1 L [place] # (Auto) 0.9 H Baso # (Auto) Seg Neutrophils % 85.6 H Seg Neuts % (Manual) Lymphocytes % (Manual) Monocytes % (Manual) Nucleated RBC % Seg Neutrophils # 12.5 H Seg Neutrophils # Man Lymphocytes # (Manual) Monocytes # (Manual) PT INR APTT Fibrinogen D-Dimer ABG pH POC ABG pCO2 POC ABG pO2 110.6 H ABG pO2 ABG HCO3 ABG Base Excess ABG Hemoglobin 6.7 L ABG Oxyhemoglobin ABG Sodium 132.0 L ABG Potassium ABG Chloride ABG Glucose 111 H VBG pH Oxyhemoglobin Carboxyhemoglobin Sodium 134 L D Potassium Chloride 97.6 L Carbon Dioxide BUN Creatinine 1.7 H Glucose POC Glucose Lactic Acid Calcium 6.3 L Ionized Calcium Phosphorus Magnesium AST 203 H ALT 81 H Alkaline Phosphatase Lactate Dehydrogenase NT-Pro-B Natriuret Pep Total Protein 3.9 L Albumin 2.3 L Arterial Blood Glucose 111 H Arterial Blood Ionized Calcium 3.5 L Urine WBC (Auto) Vancomycin Trough Phenytoin Crossmatch 10/04/20 10/04/20 10/04/20 10:00 10:00 10:14 WBC RBC Hgb Hct MCV MCH MCHC RDW Plt Count Lymph % (Auto) [place] % (Auto) Lymph # (Auto) [place] # (Auto) Baso # (Auto) Seg Neutrophils % Seg Neuts % (Manual) Lymphocytes % (Manual) Monocytes % (Manual) Nucleated RBC % Seg Neutrophils # Seg Neutrophils # Man Lymphocytes # (Manual) Monocytes # (Manual) PT INR APTT Fibrinogen D-Dimer > 84671 H ABG pH POC ABG pCO2 POC ABG pO2 ABG pO2 ABG HCO3 ABG Base Excess ABG Hemoglobin ABG Oxyhemoglobin ABG Sodium ABG Potassium ABG Chloride ABG Glucose VBG pH Oxyhemoglobin Carboxyhemoglobin Sodium Potassium Chloride Carbon Dioxide BUN Creatinine Glucose POC Glucose Lactic Acid 3.90 H* Calcium Ionized Calcium Phosphorus Magnesium AST ALT Alkaline Phosphatase Lactate Dehydrogenase NT-Pro-B Natriuret Pep 2788 H Total Protein Albumin Arterial Blood Glucose Arterial Blood Ionized Calcium Urine WBC (Auto) Vancomycin Trough Phenytoin Crossmatch 10/04/20 10/04/20 10/04/20 14:00 14:00 18:00 WBC 15.7 H RBC 3.17 L Hgb 9.3 L 9.6 L Hct 27.2 L 28.0 L MCV MCH MCHC RDW 16.9 H Plt Count 41 L Lymph % (Auto) 8.6 L [place] % (Auto) Lymph # (Auto) [place] # (Auto) 0.9 H Baso # (Auto) Seg Neutrophils % 85.4 H Seg Neuts % (Manual) Lymphocytes % (Manual) Monocytes % (Manual) Nucleated RBC % Seg Neutrophils # 13.4 H Seg Neutrophils # Man Lymphocytes # (Manual) Monocytes # (Manual) PT INR APTT Fibrinogen D-Dimer ABG pH POC ABG pCO2 POC ABG pO2 ABG pO2 ABG HCO3 ABG Base Excess ABG Hemoglobin ABG Oxyhemoglobin ABG Sodium ABG Potassium ABG Chloride ABG Glucose VBG pH Oxyhemoglobin Carboxyhemoglobin Sodium 133 L Potassium Chloride 96.4 L Carbon Dioxide BUN 18 H Creatinine 1.7 H Glucose POC Glucose Lactic Acid Calcium 6.3 L Ionized Calcium Phosphorus Magnesium AST ALT Alkaline Phosphatase Lactate Dehydrogenase NT-Pro-B Natriuret Pep Total Protein Albumin Arterial Blood Glucose Arterial Blood Ionized Calcium Urine WBC (Auto) Vancomycin Trough Phenytoin Crossmatch 10/04/20 10/04/20 10/05/20 18:00 22:00 05:00 WBC 17.6 H RBC 3.34 L Hgb 9.9 L Hct 29.4 L MCV MCH MCHC RDW 17.1 H Plt Count 56 L Lymph % (Auto) 8.5 L [place] % (Auto) Lymph # (Auto) [place] # (Auto) 1.0 H Baso # (Auto) Seg Neutrophils % 85.1 H Seg Neuts % (Manual) Lymphocytes % (Manual) Monocytes % (Manual) Nucleated RBC % Seg Neutrophils # 15.0 H Seg Neutrophils # Man Lymphocytes # (Manual) Monocytes # (Manual) PT INR APTT Fibrinogen D-Dimer ABG pH POC ABG pCO2 POC ABG pO2 ABG pO2 ABG HCO3 ABG Base Excess ABG Hemoglobin ABG Oxyhemoglobin ABG Sodium ABG Potassium ABG Chloride ABG Glucose VBG pH Oxyhemoglobin Carboxyhemoglobin Sodium 136 L Potassium Chloride Carbon Dioxide BUN 18 H Creatinine 1.7 H Glucose POC Glucose Lactic Acid 2.30 H* Calcium 6.6 L Ionized Calcium Phosphorus Magnesium AST ALT Alkaline Phosphatase Lactate Dehydrogenase NT-Pro-B Natriuret Pep Total Protein Albumin Arterial Blood Glucose Arterial Blood Ionized Calcium Urine WBC (Auto) Vancomycin Trough Phenytoin Crossmatch 10/05/20 10/05/20 10/05/20 05:00 05:00 05:03 WBC RBC Hgb Hct MCV MCH MCHC RDW Plt Count Lymph % (Auto) [place] % (Auto) Lymph # (Auto) [place] # (Auto) Baso # (Auto) Seg Neutrophils % Seg Neuts % (Manual) Lymphocytes % (Manual) Monocytes % (Manual) Nucleated RBC % Seg Neutrophils # Seg Neutrophils # Man Lymphocytes # (Manual) Monocytes # (Manual) PT INR APTT Fibrinogen D-Dimer ABG pH 7.458 H POC ABG pCO2 POC ABG pO2 ABG pO2 74.3 L ABG HCO3 27.5 H ABG Base Excess 3.4 H ABG Hemoglobin 10.0 L ABG Oxyhemoglobin ABG Sodium ABG Potassium ABG Chloride ABG Glucose VBG pH Oxyhemoglobin 94.9 L Carboxyhemoglobin Sodium Potassium Chloride Carbon Dioxide BUN 19 H Creatinine 1.8 H Glucose POC Glucose Lactic Acid Calcium 6.8 L Ionized Calcium 3.9 L Phosphorus Magnesium AST 225 H ALT 85 H Alkaline Phosphatase Lactate Dehydrogenase NT-Pro-B Natriuret Pep Total Protein 4.5 L Albumin 2.7 L Arterial Blood Glucose Arterial Blood Ionized Calcium Urine WBC (Auto) Vancomycin Trough Phenytoin Crossmatch 10/05/20 10/05/20 10/05/20 10:10 15:00 19:40 WBC RBC Hgb Hct MCV MCH MCHC RDW Plt Count Lymph % (Auto) [place] % (Auto) Lymph # (Auto) [place] # (Auto) Baso # (Auto) Seg Neutrophils % Seg Neuts % (Manual) Lymphocytes % (Manual) Monocytes % (Manual) Nucleated RBC % Seg Neutrophils # Seg Neutrophils # Man Lymphocytes # (Manual) Monocytes # (Manual) PT INR APTT Fibrinogen D-Dimer ABG pH POC ABG pCO2 POC ABG pO2 ABG pO2 ABG HCO3 ABG Base Excess ABG Hemoglobin ABG Oxyhemoglobin ABG Sodium ABG Potassium ABG Chloride ABG Glucose VBG pH Oxyhemoglobin Carboxyhemoglobin Sodium Potassium 3.5 L Chloride Carbon Dioxide 31 H 32 H BUN 19 H 19 H Creatinine 1.8 H 1.8 H Glucose POC Glucose Lactic Acid Calcium 7.0 L 7.2 L Ionized Calcium Phosphorus Magnesium 2.90 H AST ALT Alkaline Phosphatase Lactate Dehydrogenase NT-Pro-B Natriuret Pep Total Protein Albumin Arterial Blood Glucose Arterial Blood Ionized Calcium Urine WBC (Auto) Vancomycin Trough Phenytoin Crossmatch 10/06/20 10/06/20 10/06/20 01:05 03:12 04:00 WBC 17.1 H RBC 3.47 L Hgb Hct MCV MCH MCHC RDW 17.4 H Plt Count 82 L Lymph % (Auto) 8.3 L [place] % (Auto) Lymph # (Auto) [place] # (Auto) 1.1 H Baso # (Auto) Seg Neutrophils % 83.8 H Seg Neuts % (Manual) Lymphocytes % (Manual) Monocytes % (Manual) Nucleated RBC % Seg Neutrophils # 14.3 H Seg Neutrophils # Man Lymphocytes # (Manual) Monocytes # (Manual) PT INR APTT Fibrinogen D-Dimer ABG pH 7.474 H POC ABG pCO2 POC ABG pO2 129.5 H ABG pO2 ABG HCO3 ABG Base Excess ABG Hemoglobin 11.4 L ABG Oxyhemoglobin ABG Sodium 131.8 L ABG Potassium ABG Chloride ABG Glucose 103 H VBG pH Oxyhemoglobin Carboxyhemoglobin 0.3 L Sodium Potassium Chloride Carbon Dioxide BUN Creatinine Glucose POC Glucose Lactic Acid Calcium Ionized Calcium Phosphorus Magnesium 3.70 H AST ALT Alkaline Phosphatase Lactate Dehydrogenase NT-Pro-B Natriuret Pep Total Protein Albumin Arterial Blood Glucose 103 H Arterial Blood Ionized Calcium 4.2 L Urine WBC (Auto) Vancomycin Trough Phenytoin Crossmatch 10/06/20 10/06/20 10/06/20 04:00 05:31 08:12 WBC RBC Hgb Hct MCV MCH MCHC RDW Plt Count Lymph % (Auto) [place] % (Auto) Lymph # (Auto) [place] # (Auto) Baso # (Auto) Seg Neutrophils % Seg Neuts % (Manual) Lymphocytes % (Manual) Monocytes % (Manual) Nucleated RBC % Seg Neutrophils # Seg Neutrophils # Man Lymphocytes # (Manual) Monocytes # (Manual) PT INR APTT Fibrinogen D-Dimer ABG pH POC ABG pCO2 POC ABG pO2 ABG pO2 ABG HCO3 ABG Base Excess ABG Hemoglobin ABG Oxyhemoglobin ABG Sodium ABG Potassium ABG Chloride ABG Glucose VBG pH Oxyhemoglobin Carboxyhemoglobin Sodium Potassium 3.5 L Chloride Carbon Dioxide BUN 19 H Creatinine 1.8 H Glucose 102 H POC Glucose 116 H Lactic Acid Calcium 7.2 L Ionized Calcium Phosphorus Magnesium 5.40 H AST 307 H ALT 137 H Alkaline Phosphatase Lactate Dehydrogenase NT-Pro-B Natriuret Pep Total Protein 4.5 L Albumin 2.6 L Arterial Blood Glucose Arterial Blood Ionized Calcium Urine WBC (Auto) Vancomycin Trough Phenytoin Crossmatch 10/06/20 10/06/20 10/06/20 11:00 11:50 20:13 WBC RBC Hgb Hct MCV MCH MCHC RDW Plt Count Lymph % (Auto) [place] % (Auto) Lymph # (Auto) [place] # (Auto) Baso # (Auto) Seg Neutrophils % Seg Neuts % (Manual) Lymphocytes % (Manual) Monocytes % (Manual) Nucleated RBC % Seg Neutrophils # Seg Neutrophils # Man Lymphocytes # (Manual) Monocytes # (Manual) PT INR APTT Fibrinogen D-Dimer ABG pH POC ABG pCO2 POC ABG pO2 ABG pO2 ABG HCO3 ABG Base Excess ABG Hemoglobin ABG Oxyhemoglobin ABG Sodium ABG Potassium ABG Chloride ABG Glucose VBG pH Oxyhemoglobin Carboxyhemoglobin Sodium Potassium Chloride Carbon Dioxide BUN Creatinine Glucose POC Glucose 106 H Lactic Acid Calcium Ionized Calcium Phosphorus Magnesium 6.50 H 6.20 H AST ALT Alkaline Phosphatase Lactate Dehydrogenase NT-Pro-B Natriuret Pep Total Protein Albumin Arterial Blood Glucose Arterial Blood Ionized Calcium Urine WBC (Auto) Vancomycin Trough Phenytoin Crossmatch 10/06/20 10/06/20 10/06/20 20:17 22:29 23:57 WBC RBC Hgb Hct MCV MCH MCHC RDW Plt Count Lymph % (Auto) [place] % (Auto) Lymph # (Auto) [place] # (Auto) Baso # (Auto) Seg Neutrophils % Seg Neuts % (Manual) Lymphocytes % (Manual) Monocytes % (Manual) Nucleated RBC % Seg Neutrophils # Seg Neutrophils # Man Lymphocytes # (Manual) Monocytes # (Manual) PT INR APTT Fibrinogen D-Dimer ABG pH POC ABG pCO2 POC ABG pO2 ABG pO2 ABG HCO3 ABG Base Excess ABG Hemoglobin ABG Oxyhemoglobin ABG Sodium ABG Potassium ABG Chloride ABG Glucose VBG pH Oxyhemoglobin Carboxyhemoglobin Sodium Potassium Chloride Carbon Dioxide BUN Creatinine Glucose POC Glucose 112 H 126 H 133 H Lactic Acid Calcium Ionized Calcium Phosphorus Magnesium AST ALT Alkaline Phosphatase Lactate Dehydrogenase NT-Pro-B Natriuret Pep Total Protein Albumin Arterial Blood Glucose Arterial Blood Ionized Calcium Urine WBC (Auto) Vancomycin Trough Phenytoin Crossmatch 10/07/20 10/07/20 10/07/20 00:35 02:22 03:16 WBC RBC Hgb Hct MCV MCH MCHC RDW Plt Count Lymph % (Auto) [place] % (Auto) Lymph # (Auto) [place] # (Auto) Baso # (Auto) Seg Neutrophils % Seg Neuts % (Manual) Lymphocytes % (Manual) Monocytes % (Manual) Nucleated RBC % Seg Neutrophils # Seg Neutrophils # Man Lymphocytes # (Manual) Monocytes # (Manual) PT INR APTT Fibrinogen D-Dimer ABG pH POC ABG pCO2 POC ABG pO2 ABG pO2 ABG HCO3 ABG Base Excess ABG Hemoglobin 11.6 L ABG Oxyhemoglobin ABG Sodium ABG Potassium ABG Chloride ABG Glucose 156 H VBG pH Oxyhemoglobin Carboxyhemoglobin 0.3 L Sodium Potassium Chloride Carbon Dioxide BUN Creatinine Glucose POC Glucose 124 H Lactic Acid Calcium Ionized Calcium Phosphorus Magnesium 5.90 H AST ALT Alkaline Phosphatase Lactate Dehydrogenase NT-Pro-B Natriuret Pep Total Protein Albumin Arterial Blood Glucose 156 H Arterial Blood Ionized Calcium 4.2 L Urine WBC (Auto) Vancomycin Trough Phenytoin Crossmatch 10/07/20 10/07/20 10/07/20 04:06 05:45 07:05 WBC 19.2 H RBC 3.57 L Hgb Hct MCV MCH MCHC 35 H RDW 17.1 H Plt Count 129 L Lymph % (Auto) [place] % (Auto) Lymph # (Auto) [place] # (Auto) Baso # (Auto) Seg Neutrophils % Seg Neuts % (Manual) 94.0 H Lymphocytes % (Manual) 6.0 L Monocytes % (Manual) Nucleated RBC % Seg Neutrophils # Seg Neutrophils # Man 18.0 H Lymphocytes # (Manual) Monocytes # (Manual) PT INR APTT Fibrinogen D-Dimer ABG pH POC ABG pCO2 POC ABG pO2 ABG pO2 ABG HCO3 ABG Base Excess ABG Hemoglobin ABG Oxyhemoglobin ABG Sodium ABG Potassium ABG Chloride ABG Glucose VBG pH Oxyhemoglobin Carboxyhemoglobin Sodium Potassium Chloride Carbon Dioxide BUN Creatinine Glucose POC Glucose 135 H 149 H Lactic Acid Calcium Ionized Calcium Phosphorus Magnesium AST ALT Alkaline Phosphatase Lactate Dehydrogenase NT-Pro-B Natriuret Pep Total Protein Albumin Arterial Blood Glucose Arterial Blood Ionized Calcium Urine WBC (Auto) Vancomycin Trough Phenytoin Crossmatch 10/07/20 10/07/20 10/07/20 07:05 07:05 12:21 WBC RBC Hgb Hct MCV MCH MCHC RDW Plt Count Lymph % (Auto) [place] % (Auto) Lymph # (Auto) [place] # (Auto) Baso # (Auto) Seg Neutrophils % Seg Neuts % (Manual) Lymphocytes % (Manual) Monocytes % (Manual) Nucleated RBC % Seg Neutrophils # Seg Neutrophils # Man Lymphocytes # (Manual) Monocytes # (Manual) PT INR APTT Fibrinogen D-Dimer ABG pH POC ABG pCO2 POC ABG pO2 ABG pO2 ABG HCO3 ABG Base Excess ABG Hemoglobin ABG Oxyhemoglobin ABG Sodium ABG Potassium ABG Chloride ABG Glucose VBG pH Oxyhemoglobin Carboxyhemoglobin Sodium Potassium Chloride Carbon Dioxide BUN 21 H Creatinine 1.7 H Glucose 171 H POC Glucose 124 H Lactic Acid Calcium 7.4 L Ionized Calcium Phosphorus Magnesium 6.10 H AST 245 H ALT 147 H Alkaline Phosphatase Lactate Dehydrogenase NT-Pro-B Natriuret Pep Total Protein 5.3 L Albumin 2.8 L Arterial Blood Glucose Arterial Blood Ionized Calcium Urine WBC (Auto) Vancomycin Trough Phenytoin Crossmatch 10/07/20 10/07/20 10/07/20 19:52 21:00 21:50 WBC RBC Hgb Hct MCV MCH MCHC RDW Plt Count Lymph % (Auto) [place] % (Auto) Lymph # (Auto) [place] # (Auto) Baso # (Auto) Seg Neutrophils % Seg Neuts % (Manual) Lymphocytes % (Manual) Monocytes % (Manual) Nucleated RBC % Seg Neutrophils # Seg Neutrophils # Man Lymphocytes # (Manual) Monocytes # (Manual) PT INR APTT Fibrinogen D-Dimer ABG pH POC ABG pCO2 POC ABG pO2 ABG pO2 ABG HCO3 ABG Base Excess ABG Hemoglobin ABG Oxyhemoglobin ABG Sodium ABG Potassium ABG Chloride ABG Glucose VBG pH Oxyhemoglobin Carboxyhemoglobin Sodium Potassium Chloride Carbon Dioxide BUN Creatinine Glucose POC Glucose 193 H 138 H Lactic Acid Calcium Ionized Calcium 4.4 L Phosphorus Magnesium AST ALT Alkaline Phosphatase Lactate Dehydrogenase NT-Pro-B Natriuret Pep Total Protein Albumin Arterial Blood Glucose Arterial Blood Ionized Calcium Urine WBC (Auto) Vancomycin Trough Phenytoin Crossmatch 10/07/20 10/08/20 10/08/20 23:41 04:20 05:30 WBC RBC Hgb Hct MCV MCH MCHC RDW Plt Count Lymph % (Auto) [place] % (Auto) Lymph # (Auto) [place] # (Auto) Baso # (Auto) Seg Neutrophils % Seg Neuts % (Manual) Lymphocytes % (Manual) Monocytes % (Manual) Nucleated RBC % Seg Neutrophils # Seg Neutrophils # Man Lymphocytes # (Manual) Monocytes # (Manual) PT INR APTT Fibrinogen D-Dimer ABG pH 7.467 H POC ABG pCO2 POC ABG pO2 189.8 H ABG pO2 ABG HCO3 ABG Base Excess ABG Hemoglobin 10.8 L ABG Oxyhemoglobin ABG Sodium ABG Potassium ABG Chloride ABG Glucose 133 H VBG pH Oxyhemoglobin Carboxyhemoglobin Sodium Potassium Chloride Carbon Dioxide BUN Creatinine Glucose POC Glucose 118 H 114 H Lactic Acid Calcium Ionized Calcium Phosphorus Magnesium AST ALT Alkaline Phosphatase Lactate Dehydrogenase NT-Pro-B Natriuret Pep Total Protein Albumin Arterial Blood Glucose 133 H Arterial Blood Ionized Calcium 4.2 L Urine WBC (Auto) Vancomycin Trough Phenytoin Crossmatch 10/08/20 10/08/20 10/08/20 05:43 06:42 06:42 WBC 23.6 H RBC 3.54 L Hgb Hct MCV MCH MCHC RDW 17.8 H Plt Count Lymph % (Auto) [place] % (Auto) Lymph # (Auto) [place] # (Auto) Baso # (Auto) Seg Neutrophils % Seg Neuts % (Manual) 93.0 H Lymphocytes % (Manual) 3.0 L Monocytes % (Manual) Nucleated RBC % 1.0 H Seg Neutrophils # Seg Neutrophils # Man 21.9 H Lymphocytes # (Manual) 0.7 L Monocytes # (Manual) 0.9 H PT INR APTT Fibrinogen D-Dimer ABG pH POC ABG pCO2 POC ABG pO2 ABG pO2 ABG HCO3 ABG Base Excess ABG Hemoglobin ABG Oxyhemoglobin ABG Sodium ABG Potassium ABG Chloride ABG Glucose VBG pH Oxyhemoglobin Carboxyhemoglobin Sodium Potassium Chloride Carbon Dioxide BUN 28 H Creatinine 1.6 H Glucose 141 H POC Glucose 126 H Lactic Acid Calcium 7.6 L Ionized Calcium Phosphorus Magnesium AST 162 H ALT 103 H Alkaline Phosphatase Lactate Dehydrogenase NT-Pro-B Natriuret Pep Total Protein 5.4 L Albumin 2.7 L Arterial Blood Glucose Arterial Blood Ionized Calcium Urine WBC (Auto) Vancomycin Trough Phenytoin Crossmatch 10/08/20 10/08/20 10/08/20 11:20 16:05 20:14 WBC RBC Hgb Hct MCV MCH MCHC RDW Plt Count Lymph % (Auto) [place] % (Auto) Lymph # (Auto) [place] # (Auto) Baso # (Auto) Seg Neutrophils % Seg Neuts % (Manual) Lymphocytes % (Manual) Monocytes % (Manual) Nucleated RBC % Seg Neutrophils # Seg Neutrophils # Man Lymphocytes # (Manual) Monocytes # (Manual) PT INR APTT Fibrinogen D-Dimer ABG pH POC ABG pCO2 POC ABG pO2 ABG pO2 ABG HCO3 ABG Base Excess ABG Hemoglobin ABG Oxyhemoglobin ABG Sodium ABG Potassium ABG Chloride ABG Glucose VBG pH Oxyhemoglobin Carboxyhemoglobin Sodium Potassium Chloride Carbon Dioxide BUN Creatinine Glucose POC Glucose 127 H 172 H 147 H Lactic Acid Calcium Ionized Calcium Phosphorus Magnesium AST ALT Alkaline Phosphatase Lactate Dehydrogenase NT-Pro-B Natriuret Pep Total Protein Albumin Arterial Blood Glucose Arterial Blood Ionized Calcium Urine WBC (Auto) Vancomycin Trough Phenytoin Crossmatch 10/08/20 10/08/20 10/09/20 21:27 23:24 02:10 WBC RBC Hgb Hct MCV MCH MCHC RDW Plt Count Lymph % (Auto) [place] % (Auto) Lymph # (Auto) [place] # (Auto) Baso # (Auto) Seg Neutrophils % Seg Neuts % (Manual) Lymphocytes % (Manual) Monocytes % (Manual) Nucleated RBC % Seg Neutrophils # Seg Neutrophils # Man Lymphocytes # (Manual) Monocytes # (Manual) PT INR APTT Fibrinogen D-Dimer ABG pH POC ABG pCO2 POC ABG pO2 ABG pO2 ABG HCO3 ABG Base Excess ABG Hemoglobin ABG Oxyhemoglobin ABG Sodium ABG Potassium ABG Chloride ABG Glucose VBG pH Oxyhemoglobin Carboxyhemoglobin Sodium Potassium Chloride Carbon Dioxide BUN Creatinine Glucose POC Glucose 140 H 135 H 111 H Lactic Acid Calcium Ionized Calcium Phosphorus Magnesium AST ALT Alkaline Phosphatase Lactate Dehydrogenase NT-Pro-B Natriuret Pep Total Protein Albumin Arterial Blood Glucose Arterial Blood Ionized Calcium Urine WBC (Auto) Vancomycin Trough Phenytoin Crossmatch 10/09/20 10/09/20 10/09/20 03:44 04:39 05:46 WBC 19.7 H RBC 3.51 L Hgb Hct MCV MCH MCHC RDW 17.7 H Plt Count Lymph % (Auto) [place] % (Auto) Lymph # (Auto) [place] # (Auto) Baso # (Auto) Seg Neutrophils % Seg Neuts % (Manual) 86.0 H Lymphocytes % (Manual) 4.0 L Monocytes % (Manual) 9.0 H Nucleated RBC % Seg Neutrophils # Seg Neutrophils # Man 16.9 H Lymphocytes # (Manual) 0.8 L Monocytes # (Manual) 1.8 H PT INR APTT Fibrinogen D-Dimer ABG pH 7.513 H POC ABG pCO2 POC ABG pO2 33.6 L ABG pO2 ABG HCO3 ABG Base Excess ABG Hemoglobin 11.1 L ABG Oxyhemoglobin 70.2 L ABG Sodium ABG Potassium 3.2 L ABG Chloride 108.0 H ABG Glucose 108 H VBG pH Oxyhemoglobin Carboxyhemoglobin Sodium Potassium Chloride Carbon Dioxide BUN Creatinine Glucose POC Glucose 109 H Lactic Acid Calcium Ionized Calcium Phosphorus Magnesium AST ALT Alkaline Phosphatase Lactate Dehydrogenase NT-Pro-B Natriuret Pep Total Protein Albumin Arterial Blood Glucose 108 H Arterial Blood Ionized Calcium 4.3 L Urine WBC (Auto) Vancomycin Trough Phenytoin Crossmatch 10/09/20 10/10/20 10/10/20 05:46 04:00 04:00 WBC 18.4 H RBC Hgb Hct MCV MCH MCHC RDW 17.5 H Plt Count Lymph % (Auto) 9.8 L [place] % (Auto) 8.8 H Lymph # (Auto) [place] # (Auto) 1.6 H Baso # (Auto) Seg Neutrophils % 80.0 H Seg Neuts % (Manual) Lymphocytes % (Manual) Monocytes % (Manual) Nucleated RBC % Seg Neutrophils # 14.7 H Seg Neutrophils # Man Lymphocytes # (Manual) Monocytes # (Manual) PT INR APTT Fibrinogen D-Dimer ABG pH POC ABG pCO2 POC ABG pO2 ABG pO2 ABG HCO3 ABG Base Excess ABG Hemoglobin ABG Oxyhemoglobin ABG Sodium ABG Potassium ABG Chloride ABG Glucose VBG pH Oxyhemoglobin Carboxyhemoglobin Sodium 146 H Potassium 3.2 L 2.9 L* Chloride 108.9 H 112.6 H Carbon Dioxide BUN 34 H 28 H Creatinine 1.4 H 1.3 H Glucose 109 H 101 H POC Glucose Lactic Acid Calcium 7.6 L 7.8 L Ionized Calcium Phosphorus Magnesium AST 137 H 122 H ALT 99 H 81 H Alkaline Phosphatase Lactate Dehydrogenase NT-Pro-B Natriuret Pep Total Protein 5.1 L 5.2 L Albumin 2.6 L 2.7 L Arterial Blood Glucose Arterial Blood Ionized Calcium Urine WBC (Auto) Vancomycin Trough Phenytoin Crossmatch 10/10/20 10/10/20 10/11/20 04:42 09:50 00:44 WBC RBC Hgb Hct MCV MCH MCHC RDW Plt Count Lymph % (Auto) [place] % (Auto) Lymph # (Auto) [place] # (Auto) Baso # (Auto) Seg Neutrophils % Seg Neuts % (Manual) Lymphocytes % (Manual) Monocytes % (Manual) Nucleated RBC % Seg Neutrophils # Seg Neutrophils # Man Lymphocytes # (Manual) Monocytes # (Manual) PT INR APTT Fibrinogen D-Dimer ABG pH 7.534 H POC ABG pCO2 POC ABG pO2 ABG pO2 95.2 H ABG HCO3 ABG Base Excess ABG Hemoglobin 11.3 L ABG Oxyhemoglobin ABG Sodium ABG Potassium ABG Chloride ABG Glucose VBG pH Oxyhemoglobin Carboxyhemoglobin Sodium Potassium Chloride Carbon Dioxide BUN Creatinine Glucose POC Glucose 109 H 106 H Lactic Acid Calcium Ionized Calcium Phosphorus Magnesium AST ALT Alkaline Phosphatase Lactate Dehydrogenase NT-Pro-B Natriuret Pep Total Protein Albumin Arterial Blood Glucose Arterial Blood Ionized Calcium Urine WBC (Auto) Vancomycin Trough Phenytoin Crossmatch 10/11/20 10/11/20 10/11/20 04:00 04:00 06:08 WBC 27.0 H RBC Hgb Hct MCV MCH MCHC RDW 17.7 H Plt Count Lymph % (Auto) 6.3 L [place] % (Auto) Lymph # (Auto) [place] # (Auto) 1.5 H Baso # (Auto) Seg Neutrophils % 87.1 H Seg Neuts % (Manual) Lymphocytes % (Manual) Monocytes % (Manual) Nucleated RBC % Seg Neutrophils # 23.5 H Seg Neutrophils # Man Lymphocytes # (Manual) Monocytes # (Manual) PT INR APTT Fibrinogen D-Dimer ABG pH POC ABG pCO2 POC ABG pO2 ABG pO2 ABG HCO3 ABG Base Excess ABG Hemoglobin ABG Oxyhemoglobin ABG Sodium ABG Potassium ABG Chloride ABG Glucose VBG pH Oxyhemoglobin Carboxyhemoglobin Sodium Potassium 3.2 L Chloride 110.4 H Carbon Dioxide 19 L BUN 22 H Creatinine Glucose 116 H POC Glucose 107 H Lactic Acid Calcium 7.7 L Ionized Calcium Phosphorus Magnesium 1.60 L AST ALT Alkaline Phosphatase Lactate Dehydrogenase NT-Pro-B Natriuret Pep Total Protein Albumin Arterial Blood Glucose Arterial Blood Ionized Calcium Urine WBC (Auto) Vancomycin Trough Phenytoin Crossmatch 10/11/20 10/11/20 10/12/20 11:41 13:26 03:52 WBC RBC Hgb Hct MCV MCH MCHC RDW Plt Count Lymph % (Auto) [place] % (Auto) Lymph # (Auto) [place] # (Auto) Baso # (Auto) Seg Neutrophils % Seg Neuts % (Manual) Lymphocytes % (Manual) Monocytes % (Manual) Nucleated RBC % Seg Neutrophils # Seg Neutrophils # Man Lymphocytes # (Manual) Monocytes # (Manual) PT INR APTT Fibrinogen D-Dimer ABG pH POC ABG pCO2 POC ABG pO2 ABG pO2 ABG HCO3 ABG Base Excess ABG Hemoglobin ABG Oxyhemoglobin ABG Sodium ABG Potassium ABG Chloride ABG Glucose VBG pH Oxyhemoglobin Carboxyhemoglobin Sodium Potassium Chloride Carbon Dioxide BUN Creatinine Glucose POC Glucose 116 H 114 H Lactic Acid Calcium Ionized Calcium Phosphorus Magnesium AST ALT Alkaline Phosphatase Lactate Dehydrogenase NT-Pro-B Natriuret Pep Total Protein Albumin Arterial Blood Glucose Arterial Blood Ionized Calcium Urine WBC (Auto) 24.0 H Vancomycin Trough Phenytoin Crossmatch 10/12/20 10/12/20 10/12/20 04:24 14:47 21:33 WBC RBC Hgb Hct MCV MCH MCHC RDW Plt Count Lymph % (Auto) [place] % (Auto) Lymph # (Auto) [place] # (Auto) Baso # (Auto) Seg Neutrophils % Seg Neuts % (Manual) Lymphocytes % (Manual) Monocytes % (Manual) Nucleated RBC % Seg Neutrophils # Seg Neutrophils # Man Lymphocytes # (Manual) Monocytes # (Manual) PT INR APTT Fibrinogen D-Dimer ABG pH POC ABG pCO2 POC ABG pO2 ABG pO2 ABG HCO3 ABG Base Excess ABG Hemoglobin ABG Oxyhemoglobin ABG Sodium ABG Potassium ABG Chloride ABG Glucose VBG pH Oxyhemoglobin Carboxyhemoglobin Sodium Potassium Chloride 109.9 H Carbon Dioxide 13 L BUN 18 H Creatinine Glucose 119 H POC Glucose 107 H Lactic Acid Calcium 7.6 L Ionized Calcium Phosphorus Magnesium 1.60 L AST ALT Alkaline Phosphatase Lactate Dehydrogenase NT-Pro-B Natriuret Pep Total Protein Albumin Arterial Blood Glucose Arterial Blood Ionized Calcium Urine WBC (Auto) Vancomycin Trough Phenytoin Crossmatch 10/12/20 10/12/20 10/13/20 Unknown Unknown 07:00 WBC 24.3 H RBC 3.38 L Hgb 9.8 L Hct MCV MCH MCHC RDW 18.7 H Plt Count Lymph % (Auto) [place] % (Auto) Lymph # (Auto) [place] # (Auto) Baso # (Auto) Seg Neutrophils % Seg Neuts % (Manual) 93.5 H Lymphocytes % (Manual) 4.5 L Monocytes % (Manual) Nucleated RBC % Seg Neutrophils # Seg Neutrophils # Man 22.7 H Lymphocytes # (Manual) 1.1 L Monocytes # (Manual) PT INR APTT Fibrinogen D-Dimer ABG pH POC ABG pCO2 POC ABG pO2 ABG pO2 ABG HCO3 ABG Base Excess ABG Hemoglobin ABG Oxyhemoglobin ABG Sodium ABG Potassium ABG Chloride ABG Glucose VBG pH Oxyhemoglobin Carboxyhemoglobin Sodium 135 L D Potassium 3.1 L Chloride Carbon Dioxide 17 L BUN Creatinine Glucose 510 H* POC Glucose Lactic Acid Calcium 7.2 L Ionized Calcium Phosphorus Magnesium AST ALT Alkaline Phosphatase Lactate Dehydrogenase NT-Pro-B Natriuret Pep Total Protein Albumin Arterial Blood Glucose Arterial Blood Ionized Calcium Urine WBC (Auto) Vancomycin Trough Phenytoin 5.7 L Crossmatch 10/13/20 10/13/20 10/13/20 07:00 07:00 07:18 WBC 23.6 H RBC 3.26 L Hgb 9.4 L Hct 28.7 L MCV MCH MCHC RDW 18.3 H Plt Count Lymph % (Auto) [place] % (Auto) Lymph # (Auto) [place] # (Auto) Baso # (Auto) Seg Neutrophils % Seg Neuts % (Manual) Lymphocytes % (Manual) Monocytes % (Manual) Nucleated RBC % Seg Neutrophils # Seg Neutrophils # Man Lymphocytes # (Manual) Monocytes # (Manual) PT INR APTT Fibrinogen D-Dimer ABG pH 7.473 H POC ABG pCO2 20.7 L POC ABG pO2 137.9 H ABG pO2 ABG HCO3 ABG Base Excess ABG Hemoglobin 11.2 L ABG Oxyhemoglobin 98.3 H ABG Sodium 135.9 L ABG Potassium ABG Chloride 111.0 H ABG Glucose 109 H VBG pH Oxyhemoglobin Carboxyhemoglobin 0.3 L Sodium 135 L Potassium 3.5 L Chloride 109.1 H Carbon Dioxide 18 L BUN Creatinine Glucose POC Glucose Lactic Acid Calcium 7.3 L Ionized Calcium Phosphorus Magnesium 1.60 L AST ALT Alkaline Phosphatase Lactate Dehydrogenase NT-Pro-B Natriuret Pep Total Protein Albumin Arterial Blood Glucose 109 H Arterial Blood Ionized Calcium Urine WBC (Auto) Vancomycin Trough Phenytoin Crossmatch 10/14/20 10/14/20 10/15/20 04:00 04:00 05:50 WBC 28.6 H 23.2 H RBC 3.61 L 3.43 L Hgb 9.9 L Hct 30.0 L MCV MCH MCHC RDW 18.3 H 18.2 H Plt Count Lymph % (Auto) [place] % (Auto) Lymph # (Auto) [place] # (Auto) Baso # (Auto) Seg Neutrophils % Seg Neuts % (Manual) 88.0 H 90.0 H Lymphocytes % (Manual) 5.0 L 4.0 L Monocytes % (Manual) Nucleated RBC % Seg Neutrophils # Seg Neutrophils # Man 25.2 H 20.9 H Lymphocytes # (Manual) 0.9 L Monocytes # (Manual) 1.4 H 0.9 H PT INR APTT Fibrinogen D-Dimer ABG pH POC ABG pCO2 POC ABG pO2 ABG pO2 ABG HCO3 ABG Base Excess ABG Hemoglobin ABG Oxyhemoglobin ABG Sodium ABG Potassium ABG Chloride ABG Glucose VBG pH Oxyhemoglobin Carboxyhemoglobin Sodium Potassium Chloride 109.9 H Carbon Dioxide 17 L BUN Creatinine Glucose POC Glucose Lactic Acid Calcium Ionized Calcium Phosphorus Magnesium AST ALT Alkaline Phosphatase Lactate Dehydrogenase NT-Pro-B Natriuret Pep Total Protein Albumin Arterial Blood Glucose Arterial Blood Ionized Calcium Urine WBC (Auto) Vancomycin Trough Phenytoin Crossmatch 10/15/20 10/16/20 10/17/20 05:50 11:57 04:57 WBC 15.2 H RBC 3.43 L Hgb Hct MCV MCH MCHC RDW 18.1 H Plt Count Lymph % (Auto) [place] % (Auto) Lymph # (Auto) [place] # (Auto) Baso # (Auto) Seg Neutrophils % Seg Neuts % (Manual) Lymphocytes % (Manual) Monocytes % (Manual) Nucleated RBC % Seg Neutrophils # Seg Neutrophils # Man Lymphocytes # (Manual) Monocytes # (Manual) PT INR APTT Fibrinogen D-Dimer ABG pH POC ABG pCO2 POC ABG pO2 ABG pO2 ABG HCO3 ABG Base Excess ABG Hemoglobin ABG Oxyhemoglobin ABG Sodium ABG Potassium ABG Chloride ABG Glucose VBG pH Oxyhemoglobin Carboxyhemoglobin Sodium Potassium Chloride 110.3 H Carbon Dioxide 18 L BUN Creatinine Glucose 105 H POC Glucose 111 H Lactic Acid Calcium 8.3 L Ionized Calcium Phosphorus Magnesium AST ALT Alkaline Phosphatase Lactate Dehydrogenase NT-Pro-B Natriuret Pep Total Protein Albumin Arterial Blood Glucose Arterial Blood Ionized Calcium Urine WBC (Auto) Vancomycin Trough Phenytoin Crossmatch 10/17/20 10/17/20 10/18/20 05:25 21:16 01:31 WBC RBC Hgb Hct MCV MCH MCHC RDW Plt Count Lymph % (Auto) [place] % (Auto) Lymph # (Auto) [place] # (Auto) Baso # (Auto) Seg Neutrophils % Seg Neuts % (Manual) Lymphocytes % (Manual) Monocytes % (Manual) Nucleated RBC % Seg Neutrophils # Seg Neutrophils # Man Lymphocytes # (Manual) Monocytes # (Manual) PT INR APTT Fibrinogen D-Dimer ABG pH POC ABG pCO2 POC ABG pO2 ABG pO2 ABG HCO3 ABG Base Excess ABG Hemoglobin ABG Oxyhemoglobin ABG Sodium ABG Potassium ABG Chloride ABG Glucose VBG pH Oxyhemoglobin Carboxyhemoglobin Sodium Potassium Chloride Carbon Dioxide BUN Creatinine Glucose POC Glucose 107 H 106 H 119 H Lactic Acid Calcium Ionized Calcium Phosphorus Magnesium AST ALT Alkaline Phosphatase Lactate Dehydrogenase NT-Pro-B Natriuret Pep Total Protein Albumin Arterial Blood Glucose Arterial Blood Ionized Calcium Urine WBC (Auto) Vancomycin Trough Phenytoin Crossmatch 10/18/20 10/18/20 10/19/20 05:45 11:23 01:14 WBC RBC Hgb Hct MCV MCH MCHC RDW Plt Count Lymph % (Auto) [place] % (Auto) Lymph # (Auto) [place] # (Auto) Baso # (Auto) Seg Neutrophils % Seg Neuts % (Manual) Lymphocytes % (Manual) Monocytes % (Manual) Nucleated RBC % Seg Neutrophils # Seg Neutrophils # Man Lymphocytes # (Manual) Monocytes # (Manual) PT INR APTT Fibrinogen D-Dimer ABG pH POC ABG pCO2 POC ABG pO2 ABG pO2 ABG HCO3 ABG Base Excess ABG Hemoglobin ABG Oxyhemoglobin ABG Sodium ABG Potassium ABG Chloride ABG Glucose VBG pH Oxyhemoglobin Carboxyhemoglobin Sodium Potassium Chloride Carbon Dioxide BUN Creatinine Glucose POC Glucose 106 H 115 H 108 H Lactic Acid Calcium Ionized Calcium Phosphorus Magnesium AST ALT Alkaline Phosphatase Lactate Dehydrogenase NT-Pro-B Natriuret Pep Total Protein Albumin Arterial Blood Glucose Arterial Blood Ionized Calcium Urine WBC (Auto) Vancomycin Trough Phenytoin Crossmatch 10/19/20 10/20/20 10/20/20 09:57 05:40 07:59 WBC RBC Hgb Hct MCV MCH MCHC RDW Plt Count Lymph % (Auto) [place] % (Auto) Lymph # (Auto) [place] # (Auto) Baso # (Auto) Seg Neutrophils % Seg Neuts % (Manual) Lymphocytes % (Manual) Monocytes % (Manual) Nucleated RBC % Seg Neutrophils # Seg Neutrophils # Man Lymphocytes # (Manual) Monocytes # (Manual) PT INR APTT Fibrinogen D-Dimer ABG pH POC ABG pCO2 POC ABG pO2 ABG pO2 ABG HCO3 ABG Base Excess ABG Hemoglobin ABG Oxyhemoglobin ABG Sodium ABG Potassium ABG Chloride ABG Glucose VBG pH Oxyhemoglobin Carboxyhemoglobin Sodium Potassium Chloride Carbon Dioxide BUN Creatinine Glucose 106 H POC Glucose 122 H 109 H Lactic Acid Calcium Ionized Calcium Phosphorus Magnesium AST ALT Alkaline Phosphatase Lactate Dehydrogenase NT-Pro-B Natriuret Pep Total Protein Albumin Arterial Blood Glucose Arterial Blood Ionized Calcium Urine WBC (Auto) Vancomycin Trough Phenytoin Crossmatch 10/20/20 10/20/20 10/21/20 16:52 16:52 13:54 WBC 18.8 H 17.0 H RBC Hgb Hct MCV MCH MCHC RDW 17.7 H 17.8 H Plt Count 547 H 544 H Lymph % (Auto) 11.2 L [place] % (Auto) 8.1 H Lymph # (Auto) [place] # (Auto) 1.5 H Baso # (Auto) 0.2 H Seg Neutrophils % 78.8 H Seg Neuts % (Manual) Lymphocytes % (Manual) Monocytes % (Manual) Nucleated RBC % Seg Neutrophils # 14.8 H Seg Neutrophils # Man Lymphocytes # (Manual) Monocytes # (Manual) PT INR APTT Fibrinogen D-Dimer ABG pH POC ABG pCO2 POC ABG pO2 ABG pO2 ABG HCO3 ABG Base Excess ABG Hemoglobin ABG Oxyhemoglobin ABG Sodium ABG Potassium ABG Chloride ABG Glucose VBG pH Oxyhemoglobin Carboxyhemoglobin Sodium Potassium Chloride Carbon Dioxide BUN Creatinine Glucose POC Glucose Lactic Acid Calcium Ionized Calcium Phosphorus Magnesium AST ALT Alkaline Phosphatase Lactate Dehydrogenase NT-Pro-B Natriuret Pep Total Protein Albumin Arterial Blood Glucose Arterial Blood Ionized Calcium Urine WBC (Auto) Vancomycin Trough 34.5 H Phenytoin Crossmatch 10/21/20 10/22/20 10/23/20 13:54 07:26 05:34 WBC 18.7 H 13.0 H RBC 3.64 L 3.50 L Hgb Hct 30.0 L MCV MCH MCHC 35 H RDW 17.7 H 17.6 H Plt Count 502 H 503 H Lymph % (Auto) [place] % (Auto) Lymph # (Auto) [place] # (Auto) Baso # (Auto) Seg Neutrophils % Seg Neuts % (Manual) Lymphocytes % (Manual) Monocytes % (Manual) Nucleated RBC % Seg Neutrophils # Seg Neutrophils # Man Lymphocytes # (Manual) Monocytes # (Manual) PT INR APTT Fibrinogen D-Dimer ABG pH POC ABG pCO2 POC ABG pO2 ABG pO2 ABG HCO3 ABG Base Excess ABG Hemoglobin ABG Oxyhemoglobin ABG Sodium ABG Potassium ABG Chloride ABG Glucose VBG pH Oxyhemoglobin Carboxyhemoglobin Sodium 136 L Potassium Chloride Carbon Dioxide BUN Creatinine Glucose 120 H POC Glucose Lactic Acid Calcium Ionized Calcium Phosphorus Magnesium AST ALT Alkaline Phosphatase Lactate Dehydrogenase NT-Pro-B Natriuret Pep Total Protein Albumin Arterial Blood Glucose Arterial Blood Ionized Calcium Urine WBC (Auto) Vancomycin Trough Phenytoin Crossmatch 10/23/20 10/26/20 10/27/20 05:34 10:30 07:53 WBC 13.6 H RBC 3.38 L Hgb 10.0 L Hct 28.8 L MCV MCH MCHC 35 H RDW 17.6 H Plt Count Lymph % (Auto) [place] % (Auto) Lymph # (Auto) [place] # (Auto) Baso # (Auto) Seg Neutrophils % Seg Neuts % (Manual) Lymphocytes % (Manual) Monocytes % (Manual) Nucleated RBC % Seg Neutrophils # Seg Neutrophils # Man Lymphocytes # (Manual) Monocytes # (Manual) PT INR APTT Fibrinogen D-Dimer ABG pH 7.459 H POC ABG pCO2 POC ABG pO2 ABG pO2 112.2 H ABG HCO3 ABG Base Excess ABG Hemoglobin ABG Oxyhemoglobin ABG Sodium ABG Potassium ABG Chloride ABG Glucose VBG pH Oxyhemoglobin Carboxyhemoglobin Sodium 135 L Potassium Chloride Carbon Dioxide BUN Creatinine Glucose 105 H POC Glucose Lactic Acid Calcium Ionized Calcium Phosphorus Magnesium AST ALT Alkaline Phosphatase Lactate Dehydrogenase NT-Pro-B Natriuret Pep Total Protein Albumin Arterial Blood Glucose Arterial Blood Ionized Calcium Urine WBC (Auto) Vancomycin Trough Phenytoin Crossmatch 10/27/20 10/27/20 10/28/20 07:53 11:31 05:19 WBC RBC Hgb Hct MCV MCH MCHC RDW Plt Count Lymph % (Auto) [place] % (Auto) Lymph # (Auto) [place] # (Auto) Baso # (Auto) Seg Neutrophils % Seg Neuts % (Manual) Lymphocytes % (Manual) Monocytes % (Manual) Nucleated RBC % Seg Neutrophils # Seg Neutrophils # Man Lymphocytes # (Manual) Monocytes # (Manual) PT INR APTT Fibrinogen D-Dimer ABG pH POC ABG pCO2 POC ABG pO2 ABG pO2 ABG HCO3 ABG Base Excess ABG Hemoglobin ABG Oxyhemoglobin ABG Sodium ABG Potassium ABG Chloride ABG Glucose VBG pH Oxyhemoglobin Carboxyhemoglobin Sodium Potassium Chloride Carbon Dioxide BUN 20 H Creatinine Glucose 112 H POC Glucose 113 H 112 H Lactic Acid Calcium Ionized Calcium Phosphorus Magnesium AST 83 H ALT Alkaline Phosphatase Lactate Dehydrogenase NT-Pro-B Natriuret Pep Total Protein Albumin 3.8 L Arterial Blood Glucose Arterial Blood Ionized Calcium Urine WBC (Auto) Vancomycin Trough Phenytoin Crossmatch 10/29/20 10/29/20 10/29/20 07:56 07:56 11:37 WBC 13.6 H RBC Hgb Hct MCV MCH MCHC RDW 17.0 H Plt Count Lymph % (Auto) [place] % (Auto) Lymph # (Auto) [place] # (Auto) Baso # (Auto) Seg Neutrophils % Seg Neuts % (Manual) 80.0 H Lymphocytes % (Manual) Monocytes % (Manual) Nucleated RBC % Seg Neutrophils # Seg Neutrophils # Man 10.9 H Lymphocytes # (Manual) Monocytes # (Manual) PT INR APTT Fibrinogen D-Dimer ABG pH POC ABG pCO2 POC ABG pO2 ABG pO2 ABG HCO3 ABG Base Excess ABG Hemoglobin ABG Oxyhemoglobin ABG Sodium ABG Potassium ABG Chloride ABG Glucose VBG pH Oxyhemoglobin Carboxyhemoglobin Sodium Potassium Chloride Carbon Dioxide BUN Creatinine Glucose POC Glucose 108 H Lactic Acid Calcium Ionized Calcium Phosphorus 4.70 H Magnesium AST ALT Alkaline Phosphatase Lactate Dehydrogenase NT-Pro-B Natriuret Pep Total Protein Albumin Arterial Blood Glucose Arterial Blood Ionized Calcium Urine WBC (Auto) Vancomycin Trough Phenytoin Crossmatch 10/29/20 10/30/20 10/30/20 13:32 12:11 17:19 WBC RBC Hgb Hct MCV MCH MCHC RDW Plt Count Lymph % (Auto) [place] % (Auto) Lymph # (Auto) [place] # (Auto) Baso # (Auto) Seg Neutrophils % Seg Neuts % (Manual) Lymphocytes % (Manual) Monocytes % (Manual) Nucleated RBC % Seg Neutrophils # Seg Neutrophils # Man Lymphocytes # (Manual) Monocytes # (Manual) PT INR APTT Fibrinogen D-Dimer ABG pH POC ABG pCO2 POC ABG pO2 ABG pO2 ABG HCO3 ABG Base Excess ABG Hemoglobin ABG Oxyhemoglobin ABG Sodium ABG Potassium ABG Chloride ABG Glucose VBG pH Oxyhemoglobin Carboxyhemoglobin Sodium Potassium Chloride Carbon Dioxide BUN Creatinine Glucose POC Glucose 108 H 106 H 107 H Lactic Acid Calcium Ionized Calcium Phosphorus Magnesium AST ALT Alkaline Phosphatase Lactate Dehydrogenase NT-Pro-B Natriuret Pep Total Protein Albumin Arterial Blood Glucose Arterial Blood Ionized Calcium Urine WBC (Auto) Vancomycin Trough Phenytoin Crossmatch 10/31/20 10/31/20 11/01/20 03:20 05:43 04:55 WBC RBC Hgb Hct MCV MCH MCHC RDW Plt Count Lymph % (Auto) [place] % (Auto) Lymph # (Auto) [place] # (Auto) Baso # (Auto) Seg Neutrophils % Seg Neuts % (Manual) Lymphocytes % (Manual) Monocytes % (Manual) Nucleated RBC % Seg Neutrophils # Seg Neutrophils # Man Lymphocytes # (Manual) Monocytes # (Manual) PT INR APTT Fibrinogen D-Dimer ABG pH POC ABG pCO2 POC ABG pO2 ABG pO2 ABG HCO3 ABG Base Excess ABG Hemoglobin ABG Oxyhemoglobin ABG Sodium ABG Potassium ABG Chloride ABG Glucose VBG pH Oxyhemoglobin Carboxyhemoglobin Sodium Potassium Chloride Carbon Dioxide BUN Creatinine Glucose POC Glucose 108 H 115 H 108 H Lactic Acid Calcium Ionized Calcium Phosphorus Magnesium AST ALT Alkaline Phosphatase Lactate Dehydrogenase NT-Pro-B Natriuret Pep Total Protein Albumin Arterial Blood Glucose Arterial Blood Ionized Calcium Urine WBC (Auto) Vancomycin Trough Phenytoin Crossmatch 11/01/20 05:01 WBC RBC Hgb Hct MCV MCH MCHC RDW Plt Count Lymph % (Auto) [place] % (Auto) Lymph # (Auto) [place] # (Auto) Baso # (Auto) Seg Neutrophils % Seg Neuts % (Manual) Lymphocytes % (Manual) Monocytes % (Manual) Nucleated RBC % Seg Neutrophils # Seg Neutrophils # Man Lymphocytes # (Manual) Monocytes # (Manual) PT INR APTT Fibrinogen D-Dimer ABG pH POC ABG pCO2 POC ABG pO2 ABG pO2 ABG HCO3 ABG Base Excess ABG Hemoglobin ABG Oxyhemoglobin ABG Sodium ABG Potassium ABG Chloride ABG Glucose VBG pH Oxyhemoglobin Carboxyhemoglobin Sodium 135 L Potassium Chloride Carbon Dioxide BUN Creatinine Glucose POC Glucose Lactic Acid Calcium Ionized Calcium Phosphorus Magnesium AST 93 H ALT Alkaline Phosphatase 132 H Lactate Dehydrogenase NT-Pro-B Natriuret Pep Total Protein Albumin 3.6 L Arterial Blood Glucose Arterial Blood Ionized Calcium Urine WBC (Auto) Vancomycin Trough Phenytoin Crossmatch
--- NOTE | 2020-11-01 11:41 | Progress Note ---
Assessment and Plan - Patient Problems (1) Acute respiratory failure with hypoxia Current Visit: Yes Status: Acute Plan to address problem: continue to treat hypoglycemic episodes follow trend of elevated LFTs (2) Cardiac arrest Current Visit: Yes Status: Acute (3) DIC (disseminated intravascular coagulation) Current Visit: Yes Status: Acute (4) Encephalopathy Current Visit: Yes Status: Acute Subjective - Subjective Date of service: 11/01/20 Principal diagnosis: Eclampsia/HELLP Syndrome, ADOLPH, DIC; s/p , s/p supracervical hyst Interval history: 30y/o POD #29 s/p supracervical hysterectomy for eclampsia and DIC. Patient remains unresponsive. Currently having hypoglycemic episodes. Continues to be non-communicative. Objective - Vital Signs Latest vital signs: Vital Signs Temp Pulse Pulse Resp BP Pulse Ox Pulse Ox 11/01/20 11:00 85 27 H 117/56 100 11/01/20 10:00 91 H 23 120/49 96 11/01/20 09:00 106 H 19 125/72 96 11/01/20 08:39 92 H 122/73 11/01/20 08:00 98.9 F 96 H 96 H 27 H 122/73 99 11/01/20 07:00 103 H 30 H 105/61 97 11/01/20 06:15 96 H 113/59 11/01/20 06:00 84 25 H 113/59 99 11/01/20 05:00 96 H 27 H 125/63 96 11/01/20 04:36 99 11/01/20 04:09 98 H 11/01/20 04:06 99 11/01/20 04:00 104 H 29 H 126/62 98 11/01/20 03:57 100 11/01/20 03:48 98.6 F 11/01/20 03:00 104 H 21 111/74 100 11/01/20 02:00 102 H 31 H 106/48 99 11/01/20 01:00 84 22 106/48 98 11/01/20 00:37 92 H 11/01/20 00:00 98.3 F 102 H 31 H 129/54 97 10/31/20 23:23 93 H 127/69 10/31/20 23:19 101 H 127/69 10/31/20 23:17 23 10/31/20 23:00 118 H 18 127/69 97 10/31/20 22:00 113 H 17 108/54 99 10/31/20 21:00 105 H 29 H 119/57 98 10/31/20 20:38 96 H 10/31/20 20:19 99 99 10/31/20 20:00 99.3 F 107 H 33 H 130/74 98 10/31/20 19:04 100 H 24 127/65 100 10/31/20 19:00 102 H 27 H 127/65 94 10/31/20 18:20 99 10/31/20 18:00 114 H 34 H 100/70 98 10/31/20 17:20 99 10/31/20 17:00 105 H 20 126/75 98 10/31/20 16:00 99 F 102 H 104 H 30 H 116/65 98 10/31/20 15:00 102 H 22 116/69 97 10/31/20 14:08 112 H 131/88 10/31/20 14:00 108 H 23 131/88 98 10/31/20 13:00 109 H 30 H 129/63 98 10/31/20 12:00 99.1 F 105 H 108 H 24 112/65 97 Intake and Output 10/31/20 11/01/20 11/01/20 22:59 06:59 14:59 Intake Total 980 1508.75 340 Output Total 451 Balance 980 1057.75 340 Intake: IV 300 828.75 D10w 1,000 ml @ 75 mls/hr 290 828.75 IV DIRECT [facility] Rx#: [id number] Right Upper arm 10 Intake, Free Water 100 100 Tube Feeding 480 480 240 Other 100 200 Output: Gastric Drainage 1 Oral 1 Urine 400 Void 400 Urine/Stool Mix 50 Other: Total, Intake Amount 160 160 60 Total, Output Amount 300 450 Voiding Method External Female Catheter External Female Catheter External Female Catheter # Voids Void 1 2 Weight 106.2 kg - Labs Labs: Abnormal lab results 11/01/20 11/01/20 Range/Units 04:55 05:01 Sodium 135 L (137-145) mmol/L POC Glucose 108 H (70-105) mg/dL AST 93 H (5-40) units/L Alkaline Phosphatase 132 H (35-129) units/L Albumin 3.6 L (3.9-5) g/dL
--- NOTE | 2020-11-01 15:24 | Progress Note ---
Subjective Date of service: 11/01/20 Principal diagnosis: Eclampsia/HELLP Syndrome, ADOLPH, DIC; s/p , s/p supracervical hyst Interval history: Assessment and plan: 30 year old -[place] female CHE 10/25/20 at 36w5d who presents with seizures in triage on 10/02/20. Pt was not able to provide history but per pt's , she presented to the hospital to return a 24 hour urine specimen for analysis. She then suddenly reported that she did not feel good. She was taken to labor and delivery and shortly after arrival, she began seizing. During this time, a code met was called because the patient became hypoxic. She was then noted to be without a pulse. Chest compressions were started immediately, and the patient was emergently taken to the operating room for delivery of the fetus. Off note, This patient has had care at [facility] [employer] with comanagement by [facility] since 11 wks complicated by ADHD, morbid obesity, generalized anxiety disorder, panic attacks, chronic narcotic use, fibromyalgia, GERD, Irritable Bowel Syndrome, Migraines, h/o endometrial ablation and ovarian vein embolization, genital herpes, insomnia, LGA fetus, nausea and vomiting, polyhydramnios, quad screen positive for Down's Syndrome, and previous x 3. She is GBS negative. , Patient tracheostomy on ventilatory support, unable to wean, continue supportive care poor prognosis --Acute hypoxic respiratory failure: Tracheostomy on T-piece , 5 L oxygen, saturating 100% Nebulizers, continue oxygen titrate O2 sats to more than 90% Pulmonary critical following --Sepsis; received antibiotics Continue to monitor off antibiotics ID following --Cardiac arrest; 10/07/2020 ,status post CPR --COVID-19 test negative; 10/08/2020 --C. difficile colitis test; positive; 10/16/2020 --Acute metabolic encephalopathy --Acute hypoxic brain injury; Supportive care, closely monitor --Acute kidney injury; vasomotor nephropathy Resolved, renal function within normal limits, closely monitor --Shock; septic versus cardiogenic Requiring vasopressors, stable --DIC; sepsis, septic shock, resolved --History of preeclampsia; / hemorrhage Status post hysterectomy --History of C. difficile colitis; completed oral vancomycin --DVT/SVT and right upper extremity Very poor prognosis, Consults recommendations noted and appreciated We will closely monitor the patient and adjust management as needed Plan of care reviewed with the patient's nurse. 11:30: Pt brought to L&D triage for evaluation of possible labor. Pt accompanied by her spouse. Pt spouse poor historian; unable to obtain history- allergies at this time. Pt taken from registration to triage area via WC. Pt unresponsive, actively seizing with snorous respirations. facilities maintenance assistant, Kassy, called and requesting assistance. 11:35: Multiple staff at bedside. Pt 02 sat 67% on nonrebreather, unable to read BP at this time. Yifan Theodore CRNA, at bedside for intubation and assistance with IV insertion. INT attempt by multiple RNs unsuccessful at this time. 11:42: Pt being bagged by KORIN, 02% 79%. No pulse palpated, compressions started at this time; bharati young called and Dr. Newberry preparing OR for emergent c/s. 11:44: Continued compressions on stretcher while transporting pt to OR 1. Pt being bagged with jaw thrust manuever in place by KORIN Stringer student. 11:45: Arrival to OR 1. Dr. Newberry and Dr. Portillo present for emergent c/s. Code team arrived for continued care. patient revived and c/s done Patient has been bleeding from C/s site followed by supracervical hysterectomy for severe bleeding Patient transfused multiple units of PRBC, Patient in DIC. Transferred to the ICU 10/03. Patient seen and examined at bedside this morning. Patient is nonr esponsive and mechanically ventilated. On pressors. Labs reviewed-has leukocytosis, anemia, thrombocytopenia, ADOLPH and lactic acidosis. Started on IV antibiotics to cover possible sepsis secondary to DIC. Hematology oncology recommendations appreciated-needs additional cryoprecipitate and FFP. Monitor D-dimer, fibrinogen and frequent labs. Nephrology consulted for lactic acidosis and ADOLPH. 10/04. Remains mechanically ventilated. [place] antibiotics. Labs shows improved acidosis - lactic acid 3.5. Hb drop noted. Getting transfused 2 units PRBCs. Platelet count is ~40k. Continue to monitor labs closely. Critical care team on board. 10/05; xray reviewed, concerning for multifocal infilrate, likely underlying Pneumonia, will add ID consult to assist with management of this critically ill patient, start tube feed, closely monitor renal system 10/06: Resumed care, remains on mechanical ventilation. No active bleeding, H&H stable. Continue to monitor CBC and BMP. Continue IV antibiotic for underlying pneumonia. Follow critical care and ID recommendation. 10/07: Remains on mechanical ventilation. No active bleeding, H&H stable. Critical care following, wean off ventilation as tolerated. 10/08: Patient had another cardiac arrest last night. Remains on mechanical ventilation, update family. Continue supportive care -poor prognosis 10/09: Called patient mother and discussed about patient care and management. Answered all question to best of my knowledge and family satisfaction. Patient remains on mechanical ventilation, cardiac arrest x2 so far. Critically sick, poor prognosis 10/10: remains on mechanical ventilation. h/h stable, no active bleeding. monitor CBC/BMP 10/11: WBC trended up with diarrhea, started on vancomycin po. remains on MV, off pressor, tolerating TF 10/12: remains on MV, off pressor, tolerating TF. called family for update but unable to reach, could not leave message as it was full. cont supportive care, wean off vent as tolerated. 10/13/2020; patient is on mechanical ventilation, tolerating tube feeding. Patient has labored breathing. Neuro was consulted and recommend MRI. Patient is on Precedex. Rectal tube in place. 10/14/2020; patient is on mechanical ventilation, Precedex. Patient had fever and blood culture ordered. Patient is on IV vancomycin per ID recommendation. Neuro consulted and recommend MRI. Continue to monitor. Prognosis is guarded. 10/15/2020; patient is on mechanical ventilation, Precedex. Patient had fever and blood culture ordered. Patient is on IV vancomycin per ID recommendation. Neuro consulted and recommend MRI. Continue to monitor. Prognosis is guarded. 1/2: Remains with C.DIFF and Bactermia, Poor prognosis. No purposeful movement. MRI and EEG discussed with Intensvisit, Continue aggressive BP control. 3: Blood pressure better controlled MRI done 10/15 shows mild improvement in edema. We will continue to monitor mother was at bedside yesterday. Nursing documentation trach and PEG discussed with the mother including goals of care. She is still in denial about the gravity of her daughters her condition which is understandable considering her age. Continue aggressive management at this time. Await for bacteremia to clear by ID before placing PICC line. 1/4: Patient for possible PEG and Trach, ID following, repeat cultures remain negative. Poor prognosis 10/20: Pt noted to DVT and SVT in the RUE, Vascular consult and will also obtain Hematology for possible considering changing in Anticoagulation. CONTINUE TO MONITOR H/H and PLT. Family updated by [employer]. Heparin gtt started. Will check CBC and BMP 10/21: Continue supporive care, Diarrhea now resolving, But still with persistent Fever, May need repeat CT/AP per ID, still with profused Encephalopathy 10/22: Continue supportive care, weaning, awaiting repeat Imaging. FOLLOW Fever curve. Enoxparin restarted 10/23: Continue supportive care, wean as tolerated. 10/24; Started on CPAP trial, discussed with pulmonary, still with diarrhea. 10/25: Patients seen and examined, no clinical changes, still with diarrhea. ?meaningful recovery. 10/26: Clinically unchanged, continue CPAP trial, Will discuss with Neurology about re-evaluation, ?Need for repeat CT head. ?PRESS considering initial elevated BP, now stable. 10/27; tracheostomy on vent, weaning trials, vital signs noted, poor prognosis 10/28; unable to wean, tracheostomy on vent. Sepsis. Continue current management. Consults and recommendations noted and appreciated 10/30/2020;Patient on T-piece 5 L of oxygen not in acute distress, noncommunicative 11/01 remains vent dependent, unresponsive, pulmonary note reviewed, FINANCIAL AID ADVISOR note reviewed, lab results reviewed Objective - Constitutional Vitals: Vital Signs - 12hr 11/01/20 11/01/20 11/01/20 03:48 03:57 04:00 Temperature 98.6 F Pulse Rate 104 H Pulse Rate [ From Monitor] Respiratory 29 H Rate Blood Pressure 126/62 O2 Sat by Pulse 100 98 Oximetry O2 Sat by Pulse Oximetry [ Assessment] 11/01/20 11/01/20 11/01/20 04:06 04:09 04:36 Temperature Pulse Rate 98 H Pulse Rate [ From Monitor] Respiratory Rate Blood Pressure O2 Sat by Pulse 99 Oximetry O2 Sat by Pulse 99 Oximetry [ Assessment] 11/01/20 11/01/20 11/01/20 05:00 06:00 06:15 Temperature Pulse Rate 96 H 84 96 H Pulse Rate [ From Monitor] Respiratory 27 H 25 H Rate Blood Pressure 125/63 113/59 113/59 O2 Sat by Pulse 96 99 Oximetry O2 Sat by Pulse Oximetry [ Assessment] 11/01/20 11/01/20 11/01/20 07:00 08:00 08:39 Temperature 98.9 F Pulse Rate 103 H 96 H 92 H Pulse Rate [ 96 H From Monitor] Respiratory 30 H 27 H Rate Blood Pressure 105/61 122/73 122/73 O2 Sat by Pulse 97 99 Oximetry O2 Sat by Pulse Oximetry [ Assessment] 11/01/20 11/01/20 11/01/20 09:00 10:00 11:00 Temperature Pulse Rate 106 H 91 H 85 Pulse Rate [ From Monitor] Respiratory 19 23 27 H Rate Blood Pressure 125/72 120/49 117/56 O2 Sat by Pulse 96 96 100 Oximetry O2 Sat by Pulse Oximetry [ Assessment] 11/01/20 11/01/20 11/01/20 12:00 13:00 13:52 Temperature 98.8 F Pulse Rate 99 H 104 H 103 H Pulse Rate [ 99 H From Monitor] Respiratory 32 H 35 H Rate Blood Pressure 115/60 113/63 113/63 O2 Sat by Pulse 95 95 Oximetry O2 Sat by Pulse Oximetry [ Assessment] 11/01/20 14:00 Temperature Pulse Rate 104 H Pulse Rate [ From Monitor] Respiratory 25 H Rate Blood Pressure 103/70 O2 Sat by Pulse 97 Oximetry O2 Sat by Pulse Oximetry [ Assessment] General appearance: Present: no acute distress, other (Unresponsive) - Neck Neck: supple - Respiratory Respiratory: bilateral: diminished - Cardiovascular Rhythm: regular Extremities: No edema - Gastrointestinal General gastrointestinal: Present: soft - Neurologic Neurologic: other (Unresponsive) - Labs CBC & Chem 7: 10/29/20 07:56 11/01/20 05:01 Labs: Abnormal lab results 11/01/20 11/01/20 Range/Units 04:55 05:01 Sodium 135 L (137-145) mmol/L POC Glucose 108 H (70-105) mg/dL AST 93 H (5-40) units/L Alkaline Phosphatase 132 H (35-129) units/L Albumin 3.6 L (3.9-5) g/dL HEART Score - HEART Score Age: < 45 Risk factors: 1-2 risk factors - Critical Actions Critical Actions: >7 pts:50-65% risk of adverse cardiac event. Early invasive measures
[2020-11-01] MEDS: ACETAMINOPHEN 325 MG/10.15 ML ORAL LIQD UNIT DOSE FEEDTUBE PRN (22:53)
[2020-11-02] MEDS: hydrALAZINE 25 MG TAB PO SCH ×3 (06:29→22:20)
[2020-11-02] MEDS: DEXTROSE 10% IN WATER 1,000 ML IV SCH ×2 (06:29→19:42)
--- NOTE | 2020-11-02 09:25 | Progress Note ---
Assessment and Plan Assessment and plan: COVID-19 negative C. difficile positive; Patient in contact isolation --Febrile; T-max 102.4 F Blood, urine, tracheal aspirate cultures Antipyretics, reconsult ID if needed --Acute hypoxic respiratory failure: Tracheostomy on T-piece , 5 L oxygen, saturating 100% Nebulizers, continue oxygen titrate O2 sats to more than 90% Pulmonary critical following --Sepsis; received antibiotics Continue to monitor off antibiotics ID following --Cardiac arrest; 10/07/2020 ,status post CPR --COVID-19 test negative; 10/08/2020 --C. difficile colitis test; positive; 10/16/2020 --Acute metabolic encephalopathy --Acute hypoxic brain injury; Supportive care, closely monitor --Acute kidney injury; vasomotor nephropathy Resolved, renal function within normal limits, closely monitor --Shock; septic versus cardiogenic Requiring vasopressors, stable --DIC; sepsis, septic shock, resolved --History of preeclampsia; / hemorrhage Status post hysterectomy --History of C. difficile colitis; completed oral vancomycin --DVT/SVT and right upper extremity Very poor prognosis, Consults recommendations noted and appreciated We will closely monitor the patient and adjust management as needed Plan of care reviewed with the patient's nurse. Brief history; 30 year old -Mongolian female CHE 10/25/20 at 36w5d who presents with seizures in triage on 10/02/20. Pt was not able to provide history but per pt's , she presented to the hospital to return a 24 hour urine specimen for analysis. She then suddenly reported that she did not feel good. She was taken to labor and delivery and shortly after arrival, she began seizing. During this time, a code met was called because the patient became hypoxic. She was then noted to be without a pulse. Chest compressions were started immediately, and the patient was emergently taken to the operating room for delivery of the fetus. Off note, This patient has had care at [facility] with comanagement by [facility] since 11 wks complicated by ADHD, morbid obesity, generalized anxiety disorder, panic attacks, chronic narcotic use, fibromyalgia, GERD, Irritable Bowel Syndrome, Migraines, h/o endometrial ablation and ovarian vein embolization, genital herpes, insomnia, LGA fetus, nausea and vomiting, polyhydramnios, quad screen positive for Down's Syndrome, and previous x 3. She is GBS negative. , Patient tracheostomy on ventilatory support, unable to wean, continue supportive care poor prognosis 11:30: Pt brought to L&D triage for evaluation of possible labor. Pt accompanied by her spouse. Pt spouse poor historian; unable to obtain history- allergies at this time. Pt taken from registration to triage area via WC. Pt unresponsive, actively seizing with snorous respirations. nurse advocate, Kassy, called and requesting assistance. 11:35: Multiple staff at bedside. Pt 02 sat 67% on nonrebreather, unable to read BP . Yifan Theodore CRNA, at bedside for intubation and assistance with IV insertion. INT attempt by multiple RNs unsuccessful at this time. 11:42: Pt being bagged by KORIN, 02% 79%. No pulse palpated, compressions on at this time; bharati young called and Dr. Newberry preparing OR for emergent c/s. 11:44: Continued compressions on stretcher while transporting pt to OR 1. Pt being bagged with jaw thrust manuever in place by KORIN Stringer student. 11:45: Arrival to OR 1. Dr. Newberry and Dr. Portillo present for emergent c/s. Code team arrived for continued care. patient revived and c/s done Patient has been bleeding from C/s site followed by supracervical hysterectomy for severe bleeding, Patient transfused multiple units of PRBC, Patient in DIC. Patient transferred to the ICU Hospital course; 10/03. Patient seen and examined at bedside this morning. Patient is nonresponsive and mechanically ventilated. On pressors. Labs reviewed-has leukocytosis, anemia, thrombocytopenia, ADOLPH and lactic acidosis. Started on IV antibiotics to cover possible sepsis secondary to DIC. Hematology oncology recommendations appreciated-needs additional cryoprecipitate and FFP. Monitor D-dimer, fibrinogen and frequent labs. Nephrology consulted for lactic acidosis and ADOLPH. 10/04. Remains mechanically ventilated. Lincoln antibiotics. Labs shows improved acidosis - lactic acid 3.5. Hb drop noted. Getting transfused 2 units PRBCs. Platelet count is ~40k. Continue to monitor labs closely. Critical care team on board. 10/05; xray reviewed, concerning for multifocal infilrate, likely underlying Pneumonia, will add ID consult to assist with management of this critically ill patient, start tube feed, closely monitor renal system 10/06: Resumed care, remains on mechanical ventilation. No active bleeding, H&H stable. Continue to monitor CBC and BMP. Continue IV antibiotic for underlying pneumonia. Follow critical care and ID recommendation. 10/07: Remains on mechanical ventilation. No active bleeding, H&H stable. Critical care following, wean off ventilation as tolerated. 10/08: Patient had another cardiac arrest last night. Remains on mechanical ventilation, update family. Continue supportive care -poor prognosis 10/09: Called patient mother and discussed about patient care and management. Answered all question to best of my knowledge and family satisfaction. Patient remains on mechanical ventilation, cardiac arrest x2 so far. Critically sick, poor prognosis 10/10: remains on mechanical ventilation. h/h stable, no active bleeding. monitor CBC/BMP 10/11: WBC trended up with diarrhea, started on vancomycin po. remains on MV, off pressor, tolerating TF 10/12: remains on MV, off pressor, tolerating TF. called family for update but unable to reach, could not leave message as it was full. cont supportive care, wean off vent as tolerated. 10/13/2020; patient is on mechanical ventilation, tolerating tube feeding. Patient has labored breathing. Neuro was consulted and recommend MRI. Patient is on Precedex. Rectal tube in place. 10/14/2020; patient is on mechanical ventilation, Precedex. Patient had fever and blood culture ordered. Patient is on IV vancomycin per ID recommendation. Neuro consulted and recommend MRI. Continue to monitor. Prognosis is guarded. 10/15/2020; patient is on mechanical ventilation, Precedex. Patient had fever and blood culture ordered. Patient is on IV vancomycin per ID recommendation. Neuro consulted and recommend MRI. Continue to monitor. Prognosis is guarded. 12: Remains with C.DIFF and Bactermia, Poor prognosis. No purposeful movement. MRI and EEG discussed with Intensvisit, Continue aggressive BP control. 3: Blood pressure better controlled MRI done 10/15 shows mild improvement in edema. We will continue to monitor mother was at bedside yesterday. Nursing documentation trach and PEG discussed with the mother including goals of care. She is still in denial about the gravity of her daughters her condition which is understandable considering her age. Continue aggressive management at this time. Await for bacteremia to clear by ID before placing PICC line. 10/19: Patient for possible PEG and Trach, ID following, repeat cultures remain negative. Poor prognosis 10/20: Pt noted to DVT and SVT in the RUE, Vascular consult and will also obtain Hematology for possible considering changing in Anticoagulation. CONTINUE TO MONITOR H/H and PLT. Family updated by [employer]ens[employer]it. Heparin gtt started. Will check CBC and BMP 10/21: Continue supporive care, Diarrhea now resolving, But still with persistent Fever, May need repeat CT/AP per ID, still with profused Encephalopathy 10/22: Continue supportive care, weaning, awaiting repeat Imaging. FOLLOW Fever curve. Enoxparin restarted 10/23: Continue supportive care, wean as tolerated. 10/24; Started on CPAP trial, discussed with pulmonary, still with diarrhea. 10/25: Patients seen and examined, no clinical changes, still with diarrhea. ?me aningful recovery. 10/26: Clinically unchanged, continue CPAP trial, Will discuss with Neurology ab out re-evaluation, ?Need for repeat CT head. ?PRESS considering initial elevated BP, now stable. 10/27; tracheostomy on vent, weaning trials, vital signs noted, poor prognosis 10/28; unable to wean, tracheostomy on vent. Sepsis. Continue current management. Consults and recommendations noted and appreciated 10/30/2020;Patient on T-piece 5 L of oxygen not in acute distress, noncommunicative 11/02/2020; patient on T-piece 5 L of oxygen The high probability of a clinically significant, sudden or life threatening deterioration of the [MULTIPLE ORGAN] system(s) required my full and direct attention, intervention and personal management. The aggregate critical care time was [34 ] minutes. This time is in addition to time spent performing reported procedures but includes the following: [X] Data Review and interpretation [X] Patient assessment and monitoring of vital signs [X] Documentation [X] Medication orders and management History Interval history: Patient spiked fever this morning of 102 F Remains in tracheostomy on T-piece 5 L of oxygen Noncommunicative Covid negative C. difficile positive On contact isolation Hospitalist Physical - Constitutional Vitals: Temp Pulse Resp BP Pulse Ox 102.4 F H 113 H 25 H 111/54 99 11/02/20 07:40 11/02/20 06:29 11/02/20 06:00 11/02/20 06:29 11/02/20 07:47 General appearance: Present: no acute distress, well-nourished, obese, other (On T-piece 5 L oxygen, noncommunicative) - EENT Eyes: Present: PERRL, EOM intact ENT: other (Tracheostomy on T-piece) - Neck Neck: Present: supple, normal ROM - Respiratory Respiratory effort: normal Respiratory: bilateral: diminished, rhonchi, negative: rales, wheezing - Cardiovascular Rhythm: regular Heart Sounds: Present: S1 & S2 - Extremities Extremities: no ischemia, No edema - Abdominal General gastrointestinal: soft, non-tender, non-distended, normal bowel sounds - Integumentary Integumentary: Present: clear, warm - Psychiatric Psychiatric: other (Noncommunicative) - Neurologic Neurologic: other (Noncommunicative tracheostomy on T-piece) HEART Score - HEART Score Age: < 45 Risk factors: 1-2 risk factors - Critical Actions Critical Actions: >7 pts:50-65% risk of adverse cardiac event. Early invasive measures Results - Labs CBC & Chem 7: 10/29/20 07:56 11/01/20 05:01 Labs: Laboratory Last Values WBC 13.6 K/mm3 (4.5-11.0) H 10/29/20 07:56 RBC 3.88 M/mm3 (3.65-5.03) 10/29/20 07:56 Hgb 10.9 gm/dl (10.1-14.3) 10/29/20 07:56 Hgb Comment See scanned result 10/04/20 Unknown Hct 32.4 % (30.3-42.9) 10/29/20 07:56 MCV 84 fl (79-97) 10/29/20 07:56 MCH 28 pg (28-32) 10/29/20 07:56 MCHC 34 % (30-34) 10/29/20 07:56 RDW 17.0 % (13.2-15.2) H 10/29/20 07:56 Plt Count 437 K/mm3 (140-440) 10/29/20 07:56 Lymph % (Auto) 11.2 % (13.4-35.0) L 10/20/20 16:52 [place] % (Auto) 8.1 % (0.0-7.3) H 10/20/20 16:52 Eos % (Auto) 0.8 % (0.0-4.3) 10/20/20 16:52 Baso % (Auto) 1.1 % (0.0-1.8) 10/20/20 16:52 Lymph # (Auto) 2.1 K/mm3 (1.2-5.4) 10/20/20 16:52 [place]nott # (Auto) 1.5 K/mm3 (0.0-0.8) H 10/20/20 16:52 Eos # (Auto) 0.2 K/mm3 (0.0-0.4) 10/20/20 16:52 Baso # (Auto) 0.2 K/mm3 (0.0-0.1) H 10/20/20 16:52 Add Manual Diff Complete 10/29/20 07:56 Total Counted 100 10/29/20 07:56 Seg Neutrophils % 78.8 % (40.0-70.0) H 10/20/20 16:52 Seg Neuts % (Manual) 80.0 % (40.0-70.0) H 10/29/20 07:56 Band Neutrophils % 2.0 % 10/15/20 05:50 Lymphocytes % (Manual) 15.0 % (13.4-35.0) 10/29/20 07:56 Reactive Lymphs % (Man) 1.0 % 10/02/20 12:18 Monocytes % (Manual) 4.0 % (0.0-7.3) 10/29/20 07:56 Eosinophils % (Manual) 1.0 % (0.0-4.3) 10/29/20 07:56 Myelocytes % 2.0 % 10/02/20 13:05 Metamyelocytes % 1.0 % 10/14/20 04:00 Nucleated RBC % Not Reportable 10/29/20 07:56 Seg Neutrophils # 14.8 K/mm3 (1.8-7.7) H 10/20/20 16:52 Seg Neutrophils # Man 10.9 K/mm3 (1.8-7.7) H 10/29/20 07:56 Band Neutrophils # 0.0 K/mm3 10/29/20 07:56 Lymphocytes # (Manual) 2.0 K/mm3 (1.2-5.4) 10/29/20 07:56 Abs React Lymphs (Man) 0.0 K/mm3 10/29/20 07:56 Monocytes # (Manual) 0.5 K/mm3 (0.0-0.8) 10/29/20 07:56 Eosinophils # (Manual) 0.1 K/mm3 (0.0-0.4) 10/29/20 07:56 Basophils # (Manual) 0.0 K/mm3 (0.0-0.1) 10/29/20 07:56 Metamyelocytes # 0.0 K/mm3 10/29/20 07:56 Myelocytes # 0.0 K/mm3 10/29/20 07:56 Promyelocytes # 0.0 K/mm3 10/29/20 07:56 Blast Cells # 0.0 K/mm3 10/29/20 07:56 WBC Morphology Not Reportable 10/29/20 07:56 Hypersegmented Neuts Not Reportable 10/29/20 07:56 Hyposegmented Neuts Not Reportable 10/29/20 07:56 Hypogranular Neuts Not Reportable 10/29/20 07:56 Smudge Cells Not Reportable 10/29/20 07:56 Toxic Granulation Not Reportable 10/29/20 07:56 Toxic Vacuolation Not Reportable 10/29/20 07:56 Dohle Bodies Not Reportable 10/29/20 07:56 Pelger-Huet Anomaly Not Reportable 10/29/20 07:56 Ester Rods Not Reportable 10/29/20 07:56 Platelet Estimate Consistent w auto 10/29/20 07:56 Clumped Platelets Not Reportable 10/29/20 07:56 Plt Clumps, EDTA Not Reportable 10/29/20 07:56 Large Platelets Few 10/29/20 07:56 Giant Platelets Not Reportable 10/29/20 07:56 Platelet Satelliting Not Reportable 10/29/20 07:56 Plt Morphology Comment Not Reportable 10/29/20 07:56 RBC Morphology Not Reportable 10/29/20 07:56 Dimorphic RBCs Not Reportable 10/29/20 07:56 Polychromasia Rare 10/29/20 07:56 Hypochromasia Few 10/29/20 07:56 Poikilocytosis Not Reportable 10/29/20 07:56 Anisocytosis Not Reportable 10/29/20 07:56 Microcytosis Not Reportable 10/29/20 07:56 Macrocytosis Not Reportable 10/29/20 07:56 Spherocytes Not Reportable 10/29/20 07:56 Pappenheimer Bodies Not Reportable 10/29/20 07:56 Sickle Cells Not Reportable 10/29/20 07:56 Target Cells Few 10/29/20 07:56 Tear Drop Cells Not Reportable 10/29/20 07:56 Ovalocytes Not Reportable 10/29/20 07:56 Stomatocytes Few 10/14/20 04:00 Helmet Cells Not Reportable 10/29/20 07:56 Burk-Treynor Bodies Not Reportable 10/29/20 07:56 [place] Rings Not Reportable 10/29/20 07:56 [place] Cells Not Reportable 10/29/20 07:56 Bite Cells Not Reportable 10/29/20 07:56 Crenated Cell Not Reportable 10/29/20 07:56 Elliptocytes Not Reportable 10/29/20 07:56 Acanthocytes (Spur) Not Reportable 10/29/20 07:56 Rouleaux Not Reportable 10/29/20 07:56 Hemoglobin C Crystals Not Reportable 10/29/20 07:56 Schistocytes Not Reportable 10/29/20 07:56 Malaria parasites Not Reportable 10/29/20 07:56 Sickle Cell Solubility See scanned result 10/04/20 Unknown Hemoglobin A See scanned result 10/04/20 Unknown Hemoglobin A2 See scanned result 10/04/20 Unknown Hemoglobin A2 Prime See scanned result 10/04/20 Unknown Hemoglobin C See scanned result 10/04/20 Unknown Hemoglobin D See scanned result 10/04/20 Unknown Hemoglobin E See scanned result 10/04/20 Unknown Hgb F Diffential Stain See scanned result 10/04/20 Unknown Hemoglobin F Quant See scanned result 10/04/20 Unknown Hemoglobin G See scanned result 10/04/20 Unknown Hemoglobin S See scanned result 10/04/20 Unknown Hemoglobin [place] See scanned result 10/04/20 Unknown Hemoglobin [place] See scanned result 10/04/20 Unknown Hemoglobin Analilia See scanned result 10/04/20 Unknown Variant Hemoglobin See scanned result 10/04/20 Unknown Abnorm Hgb IEF Confirm See scanned result 10/04/20 Unknown Hemoglobin Interpret See scanned result 10/04/20 Unknown Hemoglobinopathy Note See scanned result 10/04/20 Unknown Sharad Bodies Not Reportable 10/29/20 07:56 Hem Pathologist Commnt No 10/29/20 07:56 PT 13.6 Sec. (12.2-14.9) 10/21/20 13:54 INR 1.06 (0.87-1.13) 10/21/20 13:54 APTT 31.6 Sec. (24.2-36.6) 10/03/20 00:40 Fibrinogen 336 mg/dl (211-480) 10/04/20 10:00 D-Dimer > 75553 ng/mlDDU (0-234) H 10/04/20 10:00 ABG pH 7.459 pH Units (7.350-7.450) H 10/26/20 10:30 POC ABG pCO2 20.7 mmHg (32.0-48.0) L 10/13/20 07:18 ABG pCO2 32.4 mm Hg 10/26/20 10:30 POC ABG pO2 137.9 mmHg (83-108) H 10/13/20 07:18 ABG pO2 112.2 mm Hg (80.0-90.0) H 10/26/20 10:30 POC ABG HCO3 14.8 10/13/20 07:18 ABG HCO3 22.5 mmol/L (20.0-26.0) 10/26/20 10:30 ABG O2 Saturation 98.2 % (95.0-99.0) 10/26/20 10:30 ABG O2 Content 18.5 (0.0-44) 10/26/20 10:30 POC ABG Base Excess -6.9 10/13/20 07:18 ABG Base Excess -0.6 mmol/L (-2.0-3.0) 10/26/20 10:30 ABG Hemoglobin 13.5 gm/dl (12.0-16.0) 10/26/20 10:30 ABG Oxyhemoglobin 98.3 (94-98) H 10/13/20 07:18 ABG Carboxyhemoglobin 1.3 % (0.0-5.0) 10/26/20 10:30 ABG Methemoglobin 0.5 % (0.0-1.5) 10/26/20 10:30 ABG Sodium 135.9 mmol/L (136.0-145.0) L 10/13/20 07:18 ABG Potassium 3.7 mmol/L (3.40-4.50) 10/13/20 07:18 ABG Chloride 111.0 mmol/L (98-107) H 10/13/20 07:18 ABG Glucose 109 mg/dL (65-95) H 10/13/20 07:18 VBG pH 6.949 (7.320-7.420) L* 10/02/20 Unknown Oxyhemoglobin 96.5 % (95.0-99.0) 10/26/20 10:30 Carboxyhemoglobin 0.3 (0.5-1.5) L 10/13/20 07:18 FiO2 25 % 10/26/20 10:30 Sodium 135 mmol/L (137-145) L 11/01/20 05:01 Potassium 4.4 mmol/L (3.6-5.0) 11/01/20 05:01 Chloride 98.5 mmol/L (98-107) 11/01/20 05:01 Carbon Dioxide 24 mmol/L (22-30) 11/01/20 05:01 Anion Gap 17 mmol/L 11/01/20 05:01 BUN 16 mg/dL (7-17) 11/01/20 05:01 Creatinine 0.7 mg/dL (0.6-1.2) 11/01/20 05:01 Estimated GFR > 60 ml/min 11/01/20 05:01 BUN/Creatinine Ratio 23 % 11/01/20 05:01 Glucose 98 mg/dL (65-100) 11/01/20 05:01 POC Glucose 104 mg/dL (70-105) 11/02/20 05:12 Lactic Acid 1.90 mmol/L (0.7-2.0) 10/04/20 22:00 Uric Acid 7.5 mg/dL (3.5-7.6) 10/02/20 13:05 Calcium 9.3 mg/dL (8.4-10.2) 11/01/20 05:01 Ionized Calcium 4.4 mg/dL (4.8-5.6) L 10/07/20 21:00 Phosphorus 4.70 mg/dL (2.5-4.5) H 10/29/20 07:56 Magnesium 2.10 mg/dL (1.7-2.3) 11/01/20 05:01 Total Bilirubin 0.50 mg/dL (0.1-1.2) 11/01/20 05:01 AST 93 units/L (5-40) H 11/01/20 05:01 ALT 31 units/L (7-56) 11/01/20 05:01 Alkaline Phosphatase 132 units/L (35-129) H 11/01/20 05:01 Lactate Dehydrogenase 769 units/L (91-180) H 10/02/20 13:05 NT-Pro-B Natriuret Pep 2788 pg/mL (0-450) H 10/04/20 10:00 Total Protein 6.9 g/dL (6.3-8.2) 11/01/20 05:01 Albumin 3.6 g/dL (3.9-5) L 11/01/20 05:01 Albumin/Globulin Ratio 1.1 % 11/01/20 05:01 Procalcitonin 0.06 ng/mL (<0.15) 10/27/20 07:53 Arterial Blood Glucose 109 mg/dL (65-95) H 10/13/20 07:18 Arterial Blood Ionized Calcium 4.6 mg/dL (4.6-5.3) 10/13/20 07:18 Urine Color Yellow (Yellow) 10/11/20 13:26 Urine Turbidity Clear (Clear) 10/11/20 13:26 Urine pH 7.0 (5.0-7.0) 10/11/20 13:26 Ur Specific [place] 1.014 (1.003-1.030) 10/11/20 13:26 Urine Protein 100 mg/dl mg/dL (Negative) 10/11/20 13:26 Urine Glucose (UA) Neg mg/dL (Negative) 10/11/20 13:26 Urine Ketones Neg mg/dL (Negative) 10/11/20 13:26 Urine Blood Mod (Negative) 10/11/20 13:26 Urine Nitrite Neg (Negative) 10/11/20 13:26 Urine Bilirubin Neg (Negative) 10/11/20 13:26 Urine Urobilinogen < 2.0 mg/dL (<2.0) 10/11/20 13:26 Ur Leukocyte Esterase Sm (Negative) 10/11/20 13:26 Urine WBC (Auto) 24.0 /HPF (0.0-6.0) H 10/11/20 13:26 Urine RBC (Auto) 59.0 /HPF (0.0-6.0) 10/11/20 13:26 Urine Bacteria (Auto) 1+ /HPF (Negative) 10/11/20 13:26 Urine Mucus Few /HPF 10/11/20 13:26 Vancomycin Trough 12.6 ug/mL (5.0-20.0) 10/21/20 13:54 Random Vancomycin 10.7 ug/mL (0-40.0) 10/16/20 13:09 Phenytoin 5.7 ug/mL (10.0-20.0) L 10/13/20 07:00 C. difficile Tox (PCR) Positive (Negative) 10/16/20 10:22 Coronavirus (PCR) Negative (Negative) 10/08/20 14:15 Blood Type O POSITIVE 10/02/20 12:50 Antibody Screen Negative 10/02/20 12:50 Crossmatch See Detail 10/02/20 12:50 - Diagnostic Impressions Diagnostic Impressions: Echocardiogram 10/03/20 13:42 Transthoracic Echocardiogram Indication: S/P Cardiac Arrest R/O Cardiomyopathy BP: 133/71 Conclusions *Global left ventricular systolic function is normal. *The estimated ejection fraction is 60-65%. *There is trace of mitral regurgitation. *The right 0heart chambers are both slightly dilated. *There is mild tricuspid regurgitation. *There is mild-moderate pulmonary hypertension. *The right ventricular systolic pressure is calculated at 44 mmHg. *The study quality is technically difficult. Findings Procedure Info: The study quality is technically difficult. The study is technically limited due to patient body habitus. The study was technically limited due to the patient's inability to lay in the left lateral decubitus position. Left Ventricle: The left ventricular chamber size is normal. There is no left ventricular hypertrophy. Global left ventricular systolic function is normal. The estimated ejection fraction is 60-65%. Left Atrium: The left atrial chamber size is normal. Right Ventricle: The right ventricle is slightly dilated. Right Atrium: The right atrium is mildly dilated. Aortic Valve: The aortic valve leaflets are mildly thickened. There is no evidence of aortic regurgitation. There is no evidence of aortic stenosis. Mitral Valve: The mitral valve leaflets are mildly thickened. There is trace of mitral regurgitation. There is no evidence of mitral stenosis. Tricuspid Valve: There is mild tricuspid regurgitation. The right ventricular systolic pressure is calculated at 44 mmHg. There is evidence of mild pulmonary hypertension. Pulmonic Valve: There is trace pulmonic regurgitation. Pericardium: There is no pericardial effusion. Aorta: There is no dilatation of the ascending aorta. There is no dilatation of the aortic root. Venous: The inferior vena cava is dilated. Measurements Chambers 2D Name Value Normal Range IVSd (2D) 1 cm (0.6 - 1.1) LVPWd (2D) 1.01 cm (0.6 - 1.1) LVIDd (2D) 4.58 cm (3.7 - 5.6) LVIDs (2D) 3.17 cm (2 - 3.8) LV FS (2D) 30.93 % - EF Teichholz (2D) 58.66 % - Ao root diameter (2D) 2.94 cm (2 - 3.7) Volumes/Mass Name Value Normal Range LA ESV SP 4CH (A/L) 72.82 ml - LA ESV SP 2CH (A/L) 66.86 ml - LA ESV BP (A/L) 74.49 ml - LA ESV SP 4CH (MOD) 71.03 ml - LA ESV SP 2CH (MOD) 64.3 ml - LV EDV SP 4CH (MOD) 98.82 ml - LV ESV SP 4CH (MOD) 24.8 ml - EF SP 4CH (MOD) 74.9 % - LV EDV SP 2CH (MOD) 86.1 ml - LV ESV SP 2CH (MOD) 36.93 ml - EF SP 2CH (MOD) 57.11 % - LV EDV BP 94.4 ml - LV ESV BP 32.66 ml - BP EF (MOD) 65.4 % - Diastolic/Systolic Function Name Value Normal Range MV E-wave Vmax 1.04 m/sec - MV deceleration time 160.46 msec - MV A-wave Vmax 0.92 m/sec - MV E:A ratio 1.14 ratio - Aortic Valve Name Value Normal Range AV Vmax 2.12 m/sec - AV VTI 22.37 cm - AV peak gradient 17.95 mmHg - AV mean gradient 7.29 mmHg - LVOT diameter 2.01 cm - LVOT Vmax 1.8 m/sec - LVOT VTI 27.17 cm - LVOT peak gradient 12.91 mmHg - LVOT mean gradient 6.83 mmHg - SV LVOT 86.42 ml - ANITA (continuity Vmax) 2.7 cm2 - ANITA (continuity VTI) 3.86 cm2 - Ascending Ao 3.18 cm - Tricuspid Valve Name Value Normal Range TV E-wave Vmax 0.88 m/sec - TR Vmax 3.01 m/sec - TR peak gradient 36.27 mmHg - RAP 8 mmHg - RVSP 44 mmHg - IVC diameter 2.65 cm (1.2 - 2.3) Pulmonic Valve/Qp:Qs Name Value Normal Range PV Vmax 1.22 m/sec - PV peak gradient 5.91 mmHg - RVOT Vmax 0.87 m/sec - RVOT VTI 13.32 cm - RVOT peak gradient 3 mmHg - PV acceleration time 110.37 msec - [place]/IV: Voiding Method External Female Catheter IV Catheter Type [Right Foot] INT / Saline Lock IV Catheter Type [Left Forearm Peripheral IV ] IV Catheter Type [Left Wrist] INT / Saline Lock IV Catheter Type [Right Hand] INT / Saline Lock IV Catheter Type [Right INT / Saline Lock Antecubital] IV Catheter Type [Right Upper Mid-line arm] IV Catheter Type [Left Triple Lumen Cath Internal Jugular] IV Catheter Type [Left Hand] Peripheral IV IV Catheter Type [Left Peripheral IV Antecubital] Active Medications - Current Medications Current Medications: Generic Name Dose Route Start Last Admin Trade Name Freq PRN Reason Stop Dose Admin Acetaminophen 650 mg 10/05/20 16:34 11/01/20 22:53 Acetaminophen 325 Mg/10.15 Ml Oral Liqd Unit Dose FEEDTUBE 650 mg Q6H PRN Administration Non Cardiac Pain or Temp>100.5 Lipase/Protease/Amylase 1 each 10/05/20 11:09 Lipase 10,500/Protease 25,000/Amylase 43,750 (Units) Dr Barakat FEEDTUBE PRN PRN For Clogged Feeding Tube Enoxaparin Sodium 40 mg 10/22/20 10:00 11/01/20 09:17 Enoxaparin 40 Mg/0.4 Ml Inj SUB-Q 40 mg DAILY ERINN Administration Protocol Famotidine 20 mg 10/07/20 10:00 11/01/20 22:52 Famotidine 20 Mg Tab PO 20 mg BID ERINN Administration Furosemide 40 mg 10/17/20 10:00 11/01/20 09:16 Furosemide 40 Mg Tab PO 40 mg QDAY ERINN Administration Hydralazine HCl 20 mg 10/07/20 11:49 10/17/20 07:20 Hydralazine 20 Mg/1 Ml Inj IV 20 mg Q6H PRN Administration SBP >170 Hydralazine HCl 50 mg 10/17/20 09:00 11/02/20 06:29 Hydralazine 25 Mg Tab PO 50 mg Q8HR ERINN Administration Hydrophilic Ointment 1 applic 10/04/20 06:55 10/31/20 23:17 Lip Therapy Vaseline TP 1 applic Q2HR PRN Administration Dry Lips Dextrose 1,000 mls @ 75 mls/hr 10/13/20 11:00 11/02/20 06:29 D10w IV 75 mls/hr DIRECT ERINN Administration Labetalol HCl 300 mg 10/17/20 09:00 11/01/20 19:42 Labetalol 100 Mg Tab PO 300 mg TID ERINN Administration Multi-Ingred Cream/Lotion/Oil/Oint 1 applic 10/04/20 06:55 Mineral Oil/Petrolatum, White Ophth Oint 3.5 Gm OU Q4HR PRN Dry Eye(s) Simple Syrup 15 ml 10/05/20 11:09 Simple Syrup 15 Ml FEEDTUBE PRN PRN Hypoglycemia Simple Syrup 30 ml 10/05/20 11:09 Simple Syrup 15 Ml FEEDTUBE PRN PRN Hypoglycemia Sodium Bicarbonate 325 mg 10/05/20 11:09 Sodium Bicarbonate 325 Mg Tab FEEDTUBE PRN PRN For Clogged Feeding Tube Sodium Bicarbonate 1,300 mg 10/13/20 14:00 11/01/20 19:42 Sodium Bicarbonate 650 Mg Tab PO 1,300 mg TID ERINN Administration Topiramate 50 mg 10/05/20 11:00 11/01/20 22:52 Topiramate Tab 25 Mg Tab PO 50 mg Q12HR ERINN Administration Nutrition/Malnutrition Assess - Dietary Evaluation Nutrition/Malnutrition Findings: Nutrition Notes Start: 10/04/20 11:13 Freq: Status: Active Protocol: Document 10/30/20 14:24 CW (Rec: 10/30/20 14:39 CW [email or web address]) Co-Sign 10/30/20 14:24 LP Nutrition Notes Initial or Follow up Reassessment Current Diagnosis Acute Kidney Injury, Respiratory Failure Other Pertinent Diagnosis Cardiac arrest, s/p c-sectuion and supracervial hysterectomy Current Diet Promote at 75ml/hr Labs/Tests Phos 4.7 BG 99 Pertinent Medications lasix D10w at 50ml/hr Height 5 ft 8 in Weight 111.2 kg [place] Body Weight (kg) 63.63 BMI 37.3 Weight change and time frame Wt change noted, pt on lasix Weight Status Morbidly Obese Subjective/Other Information FU for TF tolerance, BG labs. Pt remains intubated with TF running at goal. Per RD/MD discussion, will try changing pt TF formula to help regulate BG and wean off D10w. Percent of energy/protein needs met: 100%/74% Burn Absent Trauma Absent GI Symptoms None Food Allergy Yes Current % PO Negligible Minimum of two criteria No Fluid Accumulation Mild (non-severe) #1 Nutrition Diagnosis Inadequate oral intake Diagnosis Progress(for reassessment Continues documentation) Is patient on ventilator? Yes Is Patient Ambulatory and/or Out of Bed No REE-([facility]-confined to bed) 2246.340 Kcal/Kg value to use for calculation 16 Approximate Energy Requirements Using 1779 kcal/Kg Calculation Used for Recommendations Kcal/kg Additional Notes Protein needs are up to 159g ( up to 2.5g/kg IBW) Fluid needs are 1ml/kcal Nutrition Intervention Change Diet Order: Change TF formula Nutrition Support: Jevity 1.2 at 60ml/hr. Flush 100ml q4h. Kcal 1,782 Protein (gm) 87 Fluid (mL) 1,259 Goal #1 TF tolerance Goal #2 Meet at least 75% of energy and protein needs Anticipated Discharge Needs: Unable to determine at this time Follow-Up By: 11/02/20 Additional Comments FU for new TF order, BG labs
[2020-11-02] MEDS: ENOXAPARIN 40 MG/0.4 ML INJ SUB-Q SCH (10:50)
[2020-11-02] MEDS: FUROSEMIDE 40 MG TAB PO SCH (10:50)
[2020-11-02] MEDS: FAMOTIDINE 20 MG TAB PO SCH ×2 (10:51→22:20)
[2020-11-02] MEDS: SODIUM BICARBONATE 650 MG TAB PO SCH ×3 (11:00→19:45)
--- NOTE | 2020-11-02 11:00 | Progress Note ---
Assessment and Plan - Patient Problems (1) Acute respiratory failure with hypoxia Current Visit: Yes Status: Acute (2) Cardiac arrest Current Visit: Yes Status: Acute (3) DIC (disseminated intravascular coagulation) Current Visit: Yes Status: Acute (4) Encephalopathy Current Visit: Yes Status: Acute (5) Fever Current Visit: Yes Status: Acute Plan to address problem: Recent febrile morbidity may be contributing factor for episodic hypoglycemic episodes concern for possible sepsis will follow advice of transportation planning technician on further management of recent episodes Subjective - Subjective Date of service: 11/02/20 Principal diagnosis: Eclampsia/HELLP Syndrome, ADOLPH, DIC; s/p , s/p supracervical hyst Interval history: 30y/o POD #30 s/p supracervical hysterectomy for eclampsia and DIC. Patient remains unresponsive. Patient had recent temp spike this am of 102.4 when she had been previously afebrile. Upper extremity with DVT remains edematous. Incision is intact without evidence of acute infection. Objective - Vital Signs Vital Signs: Vital Signs - 12hr 11/01/20 11/02/20 11/02/20 23:53 00:00 01:00 Temperature 98.8 F Pulse Rate 101 H 94 H Respiratory 20 28 H 26 H Rate Blood Pressure 100/50 104/49 O2 Sat by Pulse 96 95 Oximetry O2 Sat by Pulse Oximetry [ Assessment] 11/02/20 11/02/20 11/02/20 02:00 03:00 03:40 Temperature 98.7 F Pulse Rate 110 H 95 H Respiratory 21 24 Rate Blood Pressure 116/63 114/59 O2 Sat by Pulse 93 100 Oximetry O2 Sat by Pulse Oximetry [ Assessment] 11/02/20 11/02/20 11/02/20 04:00 04:15 04:37 Temperature Pulse Rate 104 H 91 H Respiratory 27 H Rate Blood Pressure 108/58 O2 Sat by Pulse 100 Oximetry O2 Sat by Pulse 99 Oximetry [ Assessment] 11/02/20 11/02/20 11/02/20 05:00 06:00 06:29 Temperature Pulse Rate 118 H 99 H 113 H Respiratory 42 H 25 H Rate Blood Pressure 108/67 111/54 111/54 O2 Sat by Pulse 99 99 Oximetry O2 Sat by Pulse Oximetry [ Assessment] 11/02/20 11/02/20 11/02/20 07:00 07:40 07:47 Temperature 102.4 F H Pulse Rate 97 H Respiratory 25 H Rate Blood Pressure 101/53 O2 Sat by Pulse 100 99 Oximetry O2 Sat by Pulse 99 Oximetry [ Assessment] 11/02/20 11/02/20 11/02/20 08:00 09:00 10:00 Temperature 100.9 F H Pulse Rate 99 H 120 H 105 H Respiratory 25 H 27 H 29 H Rate Blood Pressure 104/46 99/54 107/57 O2 Sat by Pulse 100 100 98 Oximetry O2 Sat by Pulse Oximetry [ Assessment] - Labs Labs: Abnormal Labs 10/02/20 10/02/20 10/02/20 12:03 12:18 12:18 WBC 14.9 H RBC Hgb 9.1 L Hct MCV MCH 22 L MCHC 28 L RDW 17.6 H Plt Count 102 L Lymph % (Auto) [place] % (Auto) Lymph # (Auto) [place] # (Auto) Baso # (Auto) Seg Neutrophils % Seg Neuts % (Manual) 36.0 L Lymphocytes % (Manual) 49.0 H Monocytes % (Manual) Nucleated RBC % 6.0 H Seg Neutrophils # Seg Neutrophils # Man Lymphocytes # (Manual) 7.3 H Monocytes # (Manual) PT INR APTT Fibrinogen D-Dimer ABG pH POC ABG pCO2 POC ABG pO2 ABG pO2 ABG HCO3 ABG Base Excess ABG Hemoglobin ABG Oxyhemoglobin ABG Sodium ABG Potassium ABG Chloride ABG Glucose VBG pH Oxyhemoglobin Carboxyhemoglobin Sodium 134 L Potassium Chloride Carbon Dioxide 12 L BUN 6 L Creatinine Glucose 390 H POC Glucose 451 H Lactic Acid Calcium Ionized Calcium Phosphorus Magnesium AST 135 H ALT 85 H Alkaline Phosphatase 172 H Lactate Dehydrogenase 641 H NT-Pro-B Natriuret Pep Total Protein 5.4 L Albumin 2.3 L Arterial Blood Glucose Arterial Blood Ionized Calcium Urine WBC (Auto) Vancomycin Trough Phenytoin Crossmatch 10/02/20 10/02/20 10/02/20 12:50 13:05 13:05 WBC 38.6 H RBC Hgb 8.9 L Hct 29.0 L MCV 73 L MCH 22 L MCHC RDW 17.2 H Plt Count Lymph % (Auto) [place] % (Auto) Lymph # (Auto) [place] # (Auto) Baso # (Auto) Seg Neutrophils % Seg Neuts % (Manual) Lymphocytes % (Manual) Monocytes % (Manual) Nucleated RBC % 2.0 H Seg Neutrophils # Seg Neutrophils # Man 20.1 H Lymphocytes # (Manual) 10.4 H Monocytes # (Manual) 2.3 H PT INR APTT Fibrinogen D-Dimer ABG pH POC ABG pCO2 POC ABG pO2 ABG pO2 ABG HCO3 ABG Base Excess ABG Hemoglobin ABG Oxyhemoglobin ABG Sodium ABG Potassium ABG Chloride ABG Glucose VBG pH Oxyhemoglobin Carboxyhemoglobin Sodium Potassium Chloride Carbon Dioxide BUN Creatinine Glucose POC Glucose Lactic Acid Calcium Ionized Calcium Phosphorus Magnesium AST 184 H ALT 113 H Alkaline Phosphatase Lactate Dehydrogenase 769 H NT-Pro-B Natriuret Pep Total Protein Albumin Arterial Blood Glucose Arterial Blood Ionized Calcium Urine WBC (Auto) Vancomycin Trough Phenytoin Crossmatch See Detail 10/02/20 10/02/20 10/02/20 16:25 16:35 16:35 WBC RBC Hgb Hct MCV MCH MCHC RDW Plt Count Lymph % (Auto) [place] % (Auto) Lymph # (Auto) [place] # (Auto) Baso # (Auto) Seg Neutrophils % Seg Neuts % (Manual) Lymphocytes % (Manual) Monocytes % (Manual) Nucleated RBC % Seg Neutrophils # Seg Neutrophils # Man Lymphocytes # (Manual) Monocytes # (Manual) PT INR APTT Fibrinogen D-Dimer ABG pH 7.031 L* POC ABG pCO2 POC ABG pO2 ABG pO2 116.8 H ABG HCO3 12.7 L ABG Base Excess -16.9 L ABG Hemoglobin 7.8 L ABG Oxyhemoglobin ABG Sodium ABG Potassium ABG Chloride ABG Glucose VBG pH Oxyhemoglobin 94.9 L Carboxyhemoglobin Sodium Potassium Chloride Carbon Dioxide BUN Creatinine Glucose 403 H POC Glucose Lactic Acid 11.40 H* Calcium 6.3 L D Ionized Calcium Phosphorus Magnesium AST 70 H ALT Alkaline Phosphatase Lactate Dehydrogenase NT-Pro-B Natriuret Pep Total Protein 1.9 L D Albumin 1.2 L Arterial Blood Glucose Arterial Blood Ionized Calcium Urine WBC (Auto) Vancomycin Trough Phenytoin Crossmatch 10/02/20 10/02/20 10/02/20 18:18 18:18 22:30 WBC 11.5 H RBC 2.06 L Hgb 5.5 L* D Hct 17.3 L* D MCV MCH 27 L MCHC RDW 19.5 H Plt Count 60 L Lymph % (Auto) [place] % (Auto) Lymph # (Auto) [place] # (Auto) Baso # (Auto) Seg Neutrophils % Seg Neuts % (Manual) Lymphocytes % (Manual) 8.0 L Monocytes % (Manual) 8.0 H Nucleated RBC % 8.0 H Seg Neutrophils # Seg Neutrophils # Man Lymphocytes # (Manual) 0.9 L Monocytes # (Manual) 0.9 H PT 37.1 H INR 3.71 H APTT 135.8 H* Fibrinogen D-Dimer ABG pH 7.067 L* POC ABG pCO2 POC ABG pO2 ABG pO2 183.0 H ABG HCO3 14.1 L ABG Base Excess -15.1 L ABG Hemoglobin 7.7 L ABG Oxyhemoglobin ABG Sodium ABG Potassium ABG Chloride ABG Glucose VBG pH Oxyhemoglobin Carboxyhemoglobin Sodium Potassium Chloride Carbon Dioxide BUN Creatinine Glucose POC Glucose Lactic Acid Calcium Ionized Calcium Phosphorus Magnesium AST ALT Alkaline Phosphatase Lactate Dehydrogenase NT-Pro-B Natriuret Pep Total Protein Albumin Arterial Blood Glucose Arterial Blood Ionized Calcium Urine WBC (Auto) Vancomycin Trough Phenytoin Crossmatch 10/02/20 10/02/20 10/03/20 Unknown Unknown 00:01 WBC RBC Hgb Hct MCV MCH MCHC RDW Plt Count Lymph % (Auto) [place] % (Auto) Lymph # (Auto) [place] # (Auto) Baso # (Auto) Seg Neutrophils % Seg Neuts % (Manual) Lymphocytes % (Manual) Monocytes % (Manual) Nucleated RBC % Seg Neutrophils # Seg Neutrophils # Man Lymphocytes # (Manual) Monocytes # (Manual) PT 61.1 H INR 6.92 H* APTT 158.7 H* Fibrinogen < 60 L* D-Dimer > 65157 H ABG pH POC ABG pCO2 POC ABG pO2 ABG pO2 ABG HCO3 ABG Base Excess ABG Hemoglobin ABG Oxyhemoglobin ABG Sodium ABG Potassium ABG Chloride ABG Glucose VBG pH 6.949 L* Oxyhemoglobin Carboxyhemoglobin Sodium Potassium Chloride Carbon Dioxide BUN Creatinine Glucose POC Glucose 196 H Lactic Acid Calcium Ionized Calcium Phosphorus Magnesium AST ALT Alkaline Phosphatase Lactate Dehydrogenase NT-Pro-B Natriuret Pep Total Protein Albumin Arterial Blood Glucose Arterial Blood Ionized Calcium Urine WBC (Auto) Vancomycin Trough Phenytoin Crossmatch 10/03/20 10/03/20 10/03/20 00:40 00:40 00:40 WBC RBC Hgb Hct MCV MCH MCHC RDW Plt Count Lymph % (Auto) [place] % (Auto) Lymph # (Auto) [place] # (Auto) Baso # (Auto) Seg Neutrophils % Seg Neuts % (Manual) Lymphocytes % (Manual) Monocytes % (Manual) Nucleated RBC % Seg Neutrophils # Seg Neutrophils # Man Lymphocytes # (Manual) Monocytes # (Manual) PT 15.1 H INR 1.21 H APTT Fibrinogen D-Dimer ABG pH POC ABG pCO2 POC ABG pO2 ABG pO2 ABG HCO3 ABG Base Excess ABG Hemoglobin ABG Oxyhemoglobin ABG Sodium ABG Potassium ABG Chloride ABG Glucose VBG pH Oxyhemoglobin Carboxyhemoglobin Sodium 136 L Potassium Chloride Carbon Dioxide BUN Creatinine 1.6 H D Glucose 106 H POC Glucose Lactic Acid 5.60 H* Calcium 6.5 L Ionized Calcium Phosphorus Magnesium AST 232 H ALT 104 H Alkaline Phosphatase Lactate Dehydrogenase NT-Pro-B Natriuret Pep Total Protein 3.9 L D Albumin 2.4 L Arterial Blood Glucose Arterial Blood Ionized Calcium Urine WBC (Auto) Vancomycin Trough Phenytoin Crossmatch 10/03/20 10/03/20 10/03/20 02:08 02:08 02:08 WBC 17.6 H RBC 3.27 L Hgb 9.9 L D Hct 29.9 L D MCV MCH MCHC RDW 16.5 H Plt Count 75 L Lymph % (Auto) [place] % (Auto) Lymph # (Auto) [place] # (Auto) Baso # (Auto) Seg Neutrophils % Seg Neuts % (Manual) 76.0 H Lymphocytes % (Manual) Monocytes % (Manual) Nucleated RBC % 8.0 H Seg Neutrophils # Seg Neutrophils # Man 13.4 H Lymphocytes # (Manual) Monocytes # (Manual) PT INR APTT Fibrinogen D-Dimer ABG pH POC ABG pCO2 POC ABG pO2 ABG pO2 ABG HCO3 ABG Base Excess ABG Hemoglobin ABG Oxyhemoglobin ABG Sodium ABG Potassium ABG Chloride ABG Glucose VBG pH Oxyhemoglobin Carboxyhemoglobin Sodium Potassium Chloride Carbon Dioxide 19 L BUN Creatinine 1.4 H Glucose 306 H POC Glucose Lactic Acid 10.50 H* Calcium 6.4 L Ionized Calcium Phosphorus Magnesium AST ALT Alkaline Phosphatase Lactate Dehydrogenase NT-Pro-B Natriuret Pep Total Protein Albumin Arterial Blood Glucose Arterial Blood Ionized Calcium Urine WBC (Auto) Vancomycin Trough Phenytoin Crossmatch 10/03/20 10/03/20 10/03/20 02:42 03:59 05:31 WBC RBC Hgb Hct MCV MCH MCHC RDW Plt Count Lymph % (Auto) [place] % (Auto) Lymph # (Auto) [place] # (Auto) Baso # (Auto) Seg Neutrophils % Seg Neuts % (Manual) Lymphocytes % (Manual) Monocytes % (Manual) Nucleated RBC % Seg Neutrophils # Seg Neutrophils # Man Lymphocytes # (Manual) Monocytes # (Manual) PT INR APTT Fibrinogen D-Dimer ABG pH 7.144 L POC ABG pCO2 54.4 H POC ABG pO2 ABG pO2 ABG HCO3 ABG Base Excess ABG Hemoglobin 10.0 L ABG Oxyhemoglobin ABG Sodium ABG Potassium ABG Chloride 108.0 H ABG Glucose 306 H VBG pH Oxyhemoglobin Carboxyhemoglobin Sodium Potassium Chloride Carbon Dioxide BUN Creatinine Glucose POC Glucose 209 H Lactic Acid 9.20 H* Calcium Ionized Calcium Phosphorus Magnesium AST ALT Alkaline Phosphatase Lactate Dehydrogenase NT-Pro-B Natriuret Pep Total Protein Albumin Arterial Blood Glucose 306 H Arterial Blood Ionized Calcium 3.7 L Urine WBC (Auto) Vancomycin Trough Phenytoin Crossmatch 10/03/20 10/03/20 10/03/20 09:00 09:00 09:00 WBC 27.4 H RBC 2.84 L Hgb 8.5 L Hct 25.1 L MCV MCH MCHC RDW 16.1 H Plt Count 72 L Lymph % (Auto) [place] % (Auto) Lymph # (Auto) [place] # (Auto) Baso # (Auto) Seg Neutrophils % Seg Neuts % (Manual) Lymphocytes % (Manual) 11.0 L Monocytes % (Manual) Nucleated RBC % 3.0 H Seg Neutrophils # Seg Neutrophils # Man 18.4 H Lymphocytes # (Manual) Monocytes # (Manual) 1.9 H PT INR APTT Fibrinogen D-Dimer ABG pH POC ABG pCO2 POC ABG pO2 ABG pO2 ABG HCO3 ABG Base Excess ABG Hemoglobin ABG Oxyhemoglobin ABG Sodium ABG Potassium ABG Chloride ABG Glucose VBG pH Oxyhemoglobin Carboxyhemoglobin Sodium Potassium Chloride Carbon Dioxide BUN Creatinine 1.7 H Glucose 216 H POC Glucose Lactic Acid 9.20 H* Calcium 6.3 L Ionized Calcium Phosphorus Magnesium AST 331 H ALT 171 H Alkaline Phosphatase Lactate Dehydrogenase NT-Pro-B Natriuret Pep Total Protein 3.7 L Albumin 1.9 L Arterial Blood Glucose Arterial Blood Ionized Calcium Urine WBC (Auto) Vancomycin Trough Phenytoin Crossmatch 10/03/20 10/03/20 10/03/20 11:20 11:46 11:50 WBC 28.7 H RBC 2.67 L Hgb 8.0 L Hct 23.7 L MCV MCH MCHC RDW 16.6 H Plt Count 76 L Lymph % (Auto) [place] % (Auto) Lymph # (Auto) [place] # (Auto) Baso # (Auto) Seg Neutrophils % Seg Neuts % (Manual) Lymphocytes % (Manual) Monocytes % (Manual) Nucleated RBC % Seg Neutrophils # Seg Neutrophils # Man Lymphocytes # (Manual) Monocytes # (Manual) PT INR APTT Fibrinogen D-Dimer ABG pH POC ABG pCO2 POC ABG pO2 ABG pO2 ABG HCO3 ABG Base Excess ABG Hemoglobin ABG Oxyhemoglobin ABG Sodium ABG Potassium ABG Chloride ABG Glucose VBG pH Oxyhemoglobin Carboxyhemoglobin Sodium Potassium Chloride Carbon Dioxide BUN Creatinine Glucose POC Glucose 125 H Lactic Acid 8.00 H* Calcium Ionized Calcium Phosphorus Magnesium AST ALT Alkaline Phosphatase Lactate Dehydrogenase NT-Pro-B Natriuret Pep Total Protein Albumin Arterial Blood Glucose Arterial Blood Ionized Calcium Urine WBC (Auto) Vancomycin Trough Phenytoin Crossmatch 10/03/20 10/04/20 10/04/20 11:50 00:40 00:40 WBC RBC Hgb 6.8 L Hct 19.4 L* MCV MCH MCHC RDW Plt Count 49 L Lymph % (Auto) [place] % (Auto) Lymph # (Auto) [place] # (Auto) Baso # (Auto) Seg Neutrophils % Seg Neuts % (Manual) Lymphocytes % (Manual) Monocytes % (Manual) Nucleated RBC % Seg Neutrophils # Seg Neutrophils # Man Lymphocytes # (Manual) Monocytes # (Manual) PT INR APTT Fibrinogen D-Dimer ABG pH 7.244 L POC ABG pCO2 POC ABG pO2 ABG pO2 ABG HCO3 ABG Base Excess -4.5 L ABG Hemoglobin 7.3 L ABG Oxyhemoglobin ABG Sodium ABG Potassium ABG Chloride ABG Glucose VBG pH Oxyhemoglobin Carboxyhemoglobin Sodium Potassium Chloride Carbon Dioxide BUN Creatinine Glucose POC Glucose Lactic Acid Calcium Ionized Calcium Phosphorus Magnesium AST ALT Alkaline Phosphatase Lactate Dehydrogenase NT-Pro-B Natriuret Pep Total Protein Albumin Arterial Blood Glucose Arterial Blood Ionized Calcium Urine WBC (Auto) Vancomycin Trough Phenytoin Crossmatch 10/04/20 10/04/20 10/04/20 03:53 10:00 10:00 WBC 14.6 H RBC 2.57 L Hgb 7.6 L Hct 22.5 L MCV MCH MCHC RDW 15.8 H Plt Count 38 L Lymph % (Auto) 7.7 L [place] % (Auto) Lymph # (Auto) 1.1 L [place] # (Auto) 0.9 H Baso # (Auto) Seg Neutrophils % 85.6 H Seg Neuts % (Manual) Lymphocytes % (Manual) Monocytes % (Manual) Nucleated RBC % Seg Neutrophils # 12.5 H Seg Neutrophils # Man Lymphocytes # (Manual) Monocytes # (Manual) PT INR APTT Fibrinogen D-Dimer ABG pH POC ABG pCO2 POC ABG pO2 110.6 H ABG pO2 ABG HCO3 ABG Base Excess ABG Hemoglobin 6.7 L ABG Oxyhemoglobin ABG Sodium 132.0 L ABG Potassium ABG Chloride ABG Glucose 111 H VBG pH Oxyhemoglobin Carboxyhemoglobin Sodium 134 L D Potassium Chloride 97.6 L Carbon Dioxide BUN Creatinine 1.7 H Glucose POC Glucose Lactic Acid Calcium 6.3 L Ionized Calcium Phosphorus Magnesium AST 203 H ALT 81 H Alkaline Phosphatase Lactate Dehydrogenase NT-Pro-B Natriuret Pep Total Protein 3.9 L Albumin 2.3 L Arterial Blood Glucose 111 H Arterial Blood Ionized Calcium 3.5 L Urine WBC (Auto) Vancomycin Trough Phenytoin Crossmatch 10/04/20 10/04/20 10/04/20 10:00 10:00 10:14 WBC RBC Hgb Hct MCV MCH MCHC RDW Plt Count Lymph % (Auto) [place] % (Auto) Lymph # (Auto) [place] # (Auto) Baso # (Auto) Seg Neutrophils % Seg Neuts % (Manual) Lymphocytes % (Manual) Monocytes % (Manual) Nucleated RBC % Seg Neutrophils # Seg Neutrophils # Man Lymphocytes # (Manual) Monocytes # (Manual) PT INR APTT Fibrinogen D-Dimer > 30367 H ABG pH POC ABG pCO2 POC ABG pO2 ABG pO2 ABG HCO3 ABG Base Excess ABG Hemoglobin ABG Oxyhemoglobin ABG Sodium ABG Potassium ABG Chloride ABG Glucose VBG pH Oxyhemoglobin Carboxyhemoglobin Sodium Potassium Chloride Carbon Dioxide BUN Creatinine Glucose POC Glucose Lactic Acid 3.90 H* Calcium Ionized Calcium Phosphorus Magnesium AST ALT Alkaline Phosphatase Lactate Dehydrogenase NT-Pro-B Natriuret Pep 2788 H Total Protein Albumin Arterial Blood Glucose Arterial Blood Ionized Calcium Urine WBC (Auto) Vancomycin Trough Phenytoin Crossmatch 10/04/20 10/04/20 10/04/20 14:00 14:00 18:00 WBC 15.7 H RBC 3.17 L Hgb 9.3 L 9.6 L Hct 27.2 L 28.0 L MCV MCH MCHC RDW 16.9 H Plt Count 41 L Lymph % (Auto) 8.6 L [place] % (Auto) Lymph # (Auto) [place] # (Auto) 0.9 H Baso # (Auto) Seg Neutrophils % 85.4 H Seg Neuts % (Manual) Lymphocytes % (Manual) Monocytes % (Manual) Nucleated RBC % Seg Neutrophils # 13.4 H Seg Neutrophils # Man Lymphocytes # (Manual) Monocytes # (Manual) PT INR APTT Fibrinogen D-Dimer ABG pH POC ABG pCO2 POC ABG pO2 ABG pO2 ABG HCO3 ABG Base Excess ABG Hemoglobin ABG Oxyhemoglobin ABG Sodium ABG Potassium ABG Chloride ABG Glucose VBG pH Oxyhemoglobin Carboxyhemoglobin Sodium 133 L Potassium Chloride 96.4 L Carbon Dioxide BUN 18 H Creatinine 1.7 H Glucose POC Glucose Lactic Acid Calcium 6.3 L Ionized Calcium Phosphorus Magnesium AST ALT Alkaline Phosphatase Lactate Dehydrogenase NT-Pro-B Natriuret Pep Total Protein Albumin Arterial Blood Glucose Arterial Blood Ionized Calcium Urine WBC (Auto) Vancomycin Trough Phenytoin Crossmatch 10/04/20 10/04/20 10/05/20 18:00 22:00 05:00 WBC 17.6 H RBC 3.34 L Hgb 9.9 L Hct 29.4 L MCV MCH MCHC RDW 17.1 H Plt Count 56 L Lymph % (Auto) 8.5 L [place] % (Auto) Lymph # (Auto) [place] # (Auto) 1.0 H Baso # (Auto) Seg Neutrophils % 85.1 H Seg Neuts % (Manual) Lymphocytes % (Manual) Monocytes % (Manual) Nucleated RBC % Seg Neutrophils # 15.0 H Seg Neutrophils # Man Lymphocytes # (Manual) Monocytes # (Manual) PT INR APTT Fibrinogen D-Dimer ABG pH POC ABG pCO2 POC ABG pO2 ABG pO2 ABG HCO3 ABG Base Excess ABG Hemoglobin ABG Oxyhemoglobin ABG Sodium ABG Potassium ABG Chloride ABG Glucose VBG pH Oxyhemoglobin Carboxyhemoglobin Sodium 136 L Potassium Chloride Carbon Dioxide BUN 18 H Creatinine 1.7 H Glucose POC Glucose Lactic Acid 2.30 H* Calcium 6.6 L Ionized Calcium Phosphorus Magnesium AST ALT Alkaline Phosphatase Lactate Dehydrogenase NT-Pro-B Natriuret Pep Total Protein Albumin Arterial Blood Glucose Arterial Blood Ionized Calcium Urine WBC (Auto) Vancomycin Trough Phenytoin Crossmatch 10/05/20 10/05/20 10/05/20 05:00 05:00 05:03 WBC RBC Hgb Hct MCV MCH MCHC RDW Plt Count Lymph % (Auto) [place] % (Auto) Lymph # (Auto) [place] # (Auto) Baso # (Auto) Seg Neutrophils % Seg Neuts % (Manual) Lymphocytes % (Manual) Monocytes % (Manual) Nucleated RBC % Seg Neutrophils # Seg Neutrophils # Man Lymphocytes # (Manual) Monocytes # (Manual) PT INR APTT Fibrinogen D-Dimer ABG pH 7.458 H POC ABG pCO2 POC ABG pO2 ABG pO2 74.3 L ABG HCO3 27.5 H ABG Base Excess 3.4 H ABG Hemoglobin 10.0 L ABG Oxyhemoglobin ABG Sodium ABG Potassium ABG Chloride ABG Glucose VBG pH Oxyhemoglobin 94.9 L Carboxyhemoglobin Sodium Potassium Chloride Carbon Dioxide BUN 19 H Creatinine 1.8 H Glucose POC Glucose Lactic Acid Calcium 6.8 L Ionized Calcium 3.9 L Phosphorus Magnesium AST 225 H ALT 85 H Alkaline Phosphatase Lactate Dehydrogenase NT-Pro-B Natriuret Pep Total Protein 4.5 L Albumin 2.7 L Arterial Blood Glucose Arterial Blood Ionized Calcium Urine WBC (Auto) Vancomycin Trough Phenytoin Crossmatch 10/05/20 10/05/20 10/05/20 10:10 15:00 19:40 WBC RBC Hgb Hct MCV MCH MCHC RDW Plt Count Lymph % (Auto) [place] % (Auto) Lymph # (Auto) [place] # (Auto) Baso # (Auto) Seg Neutrophils % Seg Neuts % (Manual) Lymphocytes % (Manual) Monocytes % (Manual) Nucleated RBC % Seg Neutrophils # Seg Neutrophils # Man Lymphocytes # (Manual) Monocytes # (Manual) PT INR APTT Fibrinogen D-Dimer ABG pH POC ABG pCO2 POC ABG pO2 ABG pO2 ABG HCO3 ABG Base Excess ABG Hemoglobin ABG Oxyhemoglobin ABG Sodium ABG Potassium ABG Chloride ABG Glucose VBG pH Oxyhemoglobin Carboxyhemoglobin Sodium Potassium 3.5 L Chloride Carbon Dioxide 31 H 32 H BUN 19 H 19 H Creatinine 1.8 H 1.8 H Glucose POC Glucose Lactic Acid Calcium 7.0 L 7.2 L Ionized Calcium Phosphorus Magnesium 2.90 H AST ALT Alkaline Phosphatase Lactate Dehydrogenase NT-Pro-B Natriuret Pep Total Protein Albumin Arterial Blood Glucose Arterial Blood Ionized Calcium Urine WBC (Auto) Vancomycin Trough Phenytoin Crossmatch 10/06/20 10/06/20 10/06/20 01:05 03:12 04:00 WBC 17.1 H RBC 3.47 L Hgb Hct MCV MCH MCHC RDW 17.4 H Plt Count 82 L Lymph % (Auto) 8.3 L [place] % (Auto) Lymph # (Auto) [place] # (Auto) 1.1 H Baso # (Auto) Seg Neutrophils % 83.8 H Seg Neuts % (Manual) Lymphocytes % (Manual) Monocytes % (Manual) Nucleated RBC % Seg Neutrophils # 14.3 H Seg Neutrophils # Man Lymphocytes # (Manual) Monocytes # (Manual) PT INR APTT Fibrinogen D-Dimer ABG pH 7.474 H POC ABG pCO2 POC ABG pO2 129.5 H ABG pO2 ABG HCO3 ABG Base Excess ABG Hemoglobin 11.4 L ABG Oxyhemoglobin ABG Sodium 131.8 L ABG Potassium ABG Chloride ABG Glucose 103 H VBG pH Oxyhemoglobin Carboxyhemoglobin 0.3 L Sodium Potassium Chloride Carbon Dioxide BUN Creatinine Glucose POC Glucose Lactic Acid Calcium Ionized Calcium Phosphorus Magnesium 3.70 H AST ALT Alkaline Phosphatase Lactate Dehydrogenase NT-Pro-B Natriuret Pep Total Protein Albumin Arterial Blood Glucose 103 H Arterial Blood Ionized Calcium 4.2 L Urine WBC (Auto) Vancomycin Trough Phenytoin Crossmatch 10/06/20 10/06/20 10/06/20 04:00 05:31 08:12 WBC RBC Hgb Hct MCV MCH MCHC RDW Plt Count Lymph % (Auto) [place] % (Auto) Lymph # (Auto) [place] # (Auto) Baso # (Auto) Seg Neutrophils % Seg Neuts % (Manual) Lymphocytes % (Manual) Monocytes % (Manual) Nucleated RBC % Seg Neutrophils # Seg Neutrophils # Man Lymphocytes # (Manual) Monocytes # (Manual) PT INR APTT Fibrinogen D-Dimer ABG pH POC ABG pCO2 POC ABG pO2 ABG pO2 ABG HCO3 ABG Base Excess ABG Hemoglobin ABG Oxyhemoglobin ABG Sodium ABG Potassium ABG Chloride ABG Glucose VBG pH Oxyhemoglobin Carboxyhemoglobin Sodium Potassium 3.5 L Chloride Carbon Dioxide BUN 19 H Creatinine 1.8 H Glucose 102 H POC Glucose 116 H Lactic Acid Calcium 7.2 L Ionized Calcium Phosphorus Magnesium 5.40 H AST 307 H ALT 137 H Alkaline Phosphatase Lactate Dehydrogenase NT-Pro-B Natriuret Pep Total Protein 4.5 L Albumin 2.6 L Arterial Blood Glucose Arterial Blood Ionized Calcium Urine WBC (Auto) Vancomycin Trough Phenytoin Crossmatch 10/06/20 10/06/20 10/06/20 11:00 11:50 20:13 WBC RBC Hgb Hct MCV MCH MCHC RDW Plt Count Lymph % (Auto) [place] % (Auto) Lymph # (Auto) [place] # (Auto) Baso # (Auto) Seg Neutrophils % Seg Neuts % (Manual) Lymphocytes % (Manual) Monocytes % (Manual) Nucleated RBC % Seg Neutrophils # Seg Neutrophils # Man Lymphocytes # (Manual) Monocytes # (Manual) PT INR APTT Fibrinogen D-Dimer ABG pH POC ABG pCO2 POC ABG pO2 ABG pO2 ABG HCO3 ABG Base Excess ABG Hemoglobin ABG Oxyhemoglobin ABG Sodium ABG Potassium ABG Chloride ABG Glucose VBG pH Oxyhemoglobin Carboxyhemoglobin Sodium Potassium Chloride Carbon Dioxide BUN Creatinine Glucose POC Glucose 106 H Lactic Acid Calcium Ionized Calcium Phosphorus Magnesium 6.50 H 6.20 H AST ALT Alkaline Phosphatase Lactate Dehydrogenase NT-Pro-B Natriuret Pep Total Protein Albumin Arterial Blood Glucose Arterial Blood Ionized Calcium Urine WBC (Auto) Vancomycin Trough Phenytoin Crossmatch 10/06/20 10/06/20 10/06/20 20:17 22:29 23:57 WBC RBC Hgb Hct MCV MCH MCHC RDW Plt Count Lymph % (Auto) [place] % (Auto) Lymph # (Auto) [place] # (Auto) Baso # (Auto) Seg Neutrophils % Seg Neuts % (Manual) Lymphocytes % (Manual) Monocytes % (Manual) Nucleated RBC % Seg Neutrophils # Seg Neutrophils # Man Lymphocytes # (Manual) Monocytes # (Manual) PT INR APTT Fibrinogen D-Dimer ABG pH POC ABG pCO2 POC ABG pO2 ABG pO2 ABG HCO3 ABG Base Excess ABG Hemoglobin ABG Oxyhemoglobin ABG Sodium ABG Potassium ABG Chloride ABG Glucose VBG pH Oxyhemoglobin Carboxyhemoglobin Sodium Potassium Chloride Carbon Dioxide BUN Creatinine Glucose POC Glucose 112 H 126 H 133 H Lactic Acid Calcium Ionized Calcium Phosphorus Magnesium AST ALT Alkaline Phosphatase Lactate Dehydrogenase NT-Pro-B Natriuret Pep Total Protein Albumin Arterial Blood Glucose Arterial Blood Ionized Calcium Urine WBC (Auto) Vancomycin Trough Phenytoin Crossmatch 10/07/20 10/07/20 10/07/20 00:35 02:22 03:16 WBC RBC Hgb Hct MCV MCH MCHC RDW Plt Count Lymph % (Auto) [place] % (Auto) Lymph # (Auto) [place] # (Auto) Baso # (Auto) Seg Neutrophils % Seg Neuts % (Manual) Lymphocytes % (Manual) Monocytes % (Manual) Nucleated RBC % Seg Neutrophils # Seg Neutrophils # Man Lymphocytes # (Manual) Monocytes # (Manual) PT INR APTT Fibrinogen D-Dimer ABG pH POC ABG pCO2 POC ABG pO2 ABG pO2 ABG HCO3 ABG Base Excess ABG Hemoglobin 11.6 L ABG Oxyhemoglobin ABG Sodium ABG Potassium ABG Chloride ABG Glucose 156 H VBG pH Oxyhemoglobin Carboxyhemoglobin 0.3 L Sodium Potassium Chloride Carbon Dioxide BUN Creatinine Glucose POC Glucose 124 H Lactic Acid Calcium Ionized Calcium Phosphorus Magnesium 5.90 H AST ALT Alkaline Phosphatase Lactate Dehydrogenase NT-Pro-B Natriuret Pep Total Protein Albumin Arterial Blood Glucose 156 H Arterial Blood Ionized Calcium 4.2 L Urine WBC (Auto) Vancomycin Trough Phenytoin Crossmatch 10/07/20 10/07/20 10/07/20 04:06 05:45 07:05 WBC 19.2 H RBC 3.57 L Hgb Hct MCV MCH MCHC 35 H RDW 17.1 H Plt Count 129 L Lymph % (Auto) [place] % (Auto) Lymph # (Auto) [place] # (Auto) Baso # (Auto) Seg Neutrophils % Seg Neuts % (Manual) 94.0 H Lymphocytes % (Manual) 6.0 L Monocytes % (Manual) Nucleated RBC % Seg Neutrophils # Seg Neutrophils # Man 18.0 H Lymphocytes # (Manual) Monocytes # (Manual) PT INR APTT Fibrinogen D-Dimer ABG pH POC ABG pCO2 POC ABG pO2 ABG pO2 ABG HCO3 ABG Base Excess ABG Hemoglobin ABG Oxyhemoglobin ABG Sodium ABG Potassium ABG Chloride ABG Glucose VBG pH Oxyhemoglobin Carboxyhemoglobin Sodium Potassium Chloride Carbon Dioxide BUN Creatinine Glucose POC Glucose 135 H 149 H Lactic Acid Calcium Ionized Calcium Phosphorus Magnesium AST ALT Alkaline Phosphatase Lactate Dehydrogenase NT-Pro-B Natriuret Pep Total Protein Albumin Arterial Blood Glucose Arterial Blood Ionized Calcium Urine WBC (Auto) Vancomycin Trough Phenytoin Crossmatch 10/07/20 10/07/20 10/07/20 07:05 07:05 12:21 WBC RBC Hgb Hct MCV MCH MCHC RDW Plt Count Lymph % (Auto) [place] % (Auto) Lymph # (Auto) [place] # (Auto) Baso # (Auto) Seg Neutrophils % Seg Neuts % (Manual) Lymphocytes % (Manual) Monocytes % (Manual) Nucleated RBC % Seg Neutrophils # Seg Neutrophils # Man Lymphocytes # (Manual) Monocytes # (Manual) PT INR APTT Fibrinogen D-Dimer ABG pH POC ABG pCO2 POC ABG pO2 ABG pO2 ABG HCO3 ABG Base Excess ABG Hemoglobin ABG Oxyhemoglobin ABG Sodium ABG Potassium ABG Chloride ABG Glucose VBG pH Oxyhemoglobin Carboxyhemoglobin Sodium Potassium Chloride Carbon Dioxide BUN 21 H Creatinine 1.7 H Glucose 171 H POC Glucose 124 H Lactic Acid Calcium 7.4 L Ionized Calcium Phosphorus Magnesium 6.10 H AST 245 H ALT 147 H Alkaline Phosphatase Lactate Dehydrogenase NT-Pro-B Natriuret Pep Total Protein 5.3 L Albumin 2.8 L Arterial Blood Glucose Arterial Blood Ionized Calcium Urine WBC (Auto) Vancomycin Trough Phenytoin Crossmatch 10/07/20 10/07/20 10/07/20 19:52 21:00 21:50 WBC RBC Hgb Hct MCV MCH MCHC RDW Plt Count Lymph % (Auto) [place] % (Auto) Lymph # (Auto) [place] # (Auto) Baso # (Auto) Seg Neutrophils % Seg Neuts % (Manual) Lymphocytes % (Manual) Monocytes % (Manual) Nucleated RBC % Seg Neutrophils # Seg Neutrophils # Man Lymphocytes # (Manual) Monocytes # (Manual) PT INR APTT Fibrinogen D-Dimer ABG pH POC ABG pCO2 POC ABG pO2 ABG pO2 ABG HCO3 ABG Base Excess ABG Hemoglobin ABG Oxyhemoglobin ABG Sodium ABG Potassium ABG Chloride ABG Glucose VBG pH Oxyhemoglobin Carboxyhemoglobin Sodium Potassium Chloride Carbon Dioxide BUN Creatinine Glucose POC Glucose 193 H 138 H Lactic Acid Calcium Ionized Calcium 4.4 L Phosphorus Magnesium AST ALT Alkaline Phosphatase Lactate Dehydrogenase NT-Pro-B Natriuret Pep Total Protein Albumin Arterial Blood Glucose Arterial Blood Ionized Calcium Urine WBC (Auto) Vancomycin Trough Phenytoin Crossmatch 10/07/20 10/08/20 10/08/20 23:41 04:20 05:30 WBC RBC Hgb Hct MCV MCH MCHC RDW Plt Count Lymph % (Auto) [place] % (Auto) Lymph # (Auto) [place] # (Auto) Baso # (Auto) Seg Neutrophils % Seg Neuts % (Manual) Lymphocytes % (Manual) Monocytes % (Manual) Nucleated RBC % Seg Neutrophils # Seg Neutrophils # Man Lymphocytes # (Manual) Monocytes # (Manual) PT INR APTT Fibrinogen D-Dimer ABG pH 7.467 H POC ABG pCO2 POC ABG pO2 189.8 H ABG pO2 ABG HCO3 ABG Base Excess ABG Hemoglobin 10.8 L ABG Oxyhemoglobin ABG Sodium ABG Potassium ABG Chloride ABG Glucose 133 H VBG pH Oxyhemoglobin Carboxyhemoglobin Sodium Potassium Chloride Carbon Dioxide BUN Creatinine Glucose POC Glucose 118 H 114 H Lactic Acid Calcium Ionized Calcium Phosphorus Magnesium AST ALT Alkaline Phosphatase Lactate Dehydrogenase NT-Pro-B Natriuret Pep Total Protein Albumin Arterial Blood Glucose 133 H Arterial Blood Ionized Calcium 4.2 L Urine WBC (Auto) Vancomycin Trough Phenytoin Crossmatch 10/08/20 10/08/20 10/08/20 05:43 06:42 06:42 WBC 23.6 H RBC 3.54 L Hgb Hct MCV MCH MCHC RDW 17.8 H Plt Count Lymph % (Auto) [place] % (Auto) Lymph # (Auto) [place] # (Auto) Baso # (Auto) Seg Neutrophils % Seg Neuts % (Manual) 93.0 H Lymphocytes % (Manual) 3.0 L Monocytes % (Manual) Nucleated RBC % 1.0 H Seg Neutrophils # Seg Neutrophils # Man 21.9 H Lymphocytes # (Manual) 0.7 L Monocytes # (Manual) 0.9 H PT INR APTT Fibrinogen D-Dimer ABG pH POC ABG pCO2 POC ABG pO2 ABG pO2 ABG HCO3 ABG Base Excess ABG Hemoglobin ABG Oxyhemoglobin ABG Sodium ABG Potassium ABG Chloride ABG Glucose VBG pH Oxyhemoglobin Carboxyhemoglobin Sodium Potassium Chloride Carbon Dioxide BUN 28 H Creatinine 1.6 H Glucose 141 H POC Glucose 126 H Lactic Acid Calcium 7.6 L Ionized Calcium Phosphorus Magnesium AST 162 H ALT 103 H Alkaline Phosphatase Lactate Dehydrogenase NT-Pro-B Natriuret Pep Total Protein 5.4 L Albumin 2.7 L Arterial Blood Glucose Arterial Blood Ionized Calcium Urine WBC (Auto) Vancomycin Trough Phenytoin Crossmatch 10/08/20 10/08/20 10/08/20 11:20 16:05 20:14 WBC RBC Hgb Hct MCV MCH MCHC RDW Plt Count Lymph % (Auto) [place] % (Auto) Lymph # (Auto) [place] # (Auto) Baso # (Auto) Seg Neutrophils % Seg Neuts % (Manual) Lymphocytes % (Manual) Monocytes % (Manual) Nucleated RBC % Seg Neutrophils # Seg Neutrophils # Man Lymphocytes # (Manual) Monocytes # (Manual) PT INR APTT Fibrinogen D-Dimer ABG pH POC ABG pCO2 POC ABG pO2 ABG pO2 ABG HCO3 ABG Base Excess ABG Hemoglobin ABG Oxyhemoglobin ABG Sodium ABG Potassium ABG Chloride ABG Glucose VBG pH Oxyhemoglobin Carboxyhemoglobin Sodium Potassium Chloride Carbon Dioxide BUN Creatinine Glucose POC Glucose 127 H 172 H 147 H Lactic Acid Calcium Ionized Calcium Phosphorus Magnesium AST ALT Alkaline Phosphatase Lactate Dehydrogenase NT-Pro-B Natriuret Pep Total Protein Albumin Arterial Blood Glucose Arterial Blood Ionized Calcium Urine WBC (Auto) Vancomycin Trough Phenytoin Crossmatch 10/08/20 10/08/20 10/09/20 21:27 23:24 02:10 WBC RBC Hgb Hct MCV MCH MCHC RDW Plt Count Lymph % (Auto) [place] % (Auto) Lymph # (Auto) [place] # (Auto) Baso # (Auto) Seg Neutrophils % Seg Neuts % (Manual) Lymphocytes % (Manual) Monocytes % (Manual) Nucleated RBC % Seg Neutrophils # Seg Neutrophils # Man Lymphocytes # (Manual) Monocytes # (Manual) PT INR APTT Fibrinogen D-Dimer ABG pH POC ABG pCO2 POC ABG pO2 ABG pO2 ABG HCO3 ABG Base Excess ABG Hemoglobin ABG Oxyhemoglobin ABG Sodium ABG Potassium ABG Chloride ABG Glucose VBG pH Oxyhemoglobin Carboxyhemoglobin Sodium Potassium Chloride Carbon Dioxide BUN Creatinine Glucose POC Glucose 140 H 135 H 111 H Lactic Acid Calcium Ionized Calcium Phosphorus Magnesium AST ALT Alkaline Phosphatase Lactate Dehydrogenase NT-Pro-B Natriuret Pep Total Protein Albumin Arterial Blood Glucose Arterial Blood Ionized Calcium Urine WBC (Auto) Vancomycin Trough Phenytoin Crossmatch 10/09/20 10/09/20 10/09/20 03:44 04:39 05:46 WBC 19.7 H RBC 3.51 L Hgb Hct MCV MCH MCHC RDW 17.7 H Plt Count Lymph % (Auto) [place] % (Auto) Lymph # (Auto) [place] # (Auto) Baso # (Auto) Seg Neutrophils % Seg Neuts % (Manual) 86.0 H Lymphocytes % (Manual) 4.0 L Monocytes % (Manual) 9.0 H Nucleated RBC % Seg Neutrophils # Seg Neutrophils # Man 16.9 H Lymphocytes # (Manual) 0.8 L Monocytes # (Manual) 1.8 H PT INR APTT Fibrinogen D-Dimer ABG pH 7.513 H POC ABG pCO2 POC ABG pO2 33.6 L ABG pO2 ABG HCO3 ABG Base Excess ABG Hemoglobin 11.1 L ABG Oxyhemoglobin 70.2 L ABG Sodium ABG Potassium 3.2 L ABG Chloride 108.0 H ABG Glucose 108 H VBG pH Oxyhemoglobin Carboxyhemoglobin Sodium Potassium Chloride Carbon Dioxide BUN Creatinine Glucose POC Glucose 109 H Lactic Acid Calcium Ionized Calcium Phosphorus Magnesium AST ALT Alkaline Phosphatase Lactate Dehydrogenase NT-Pro-B Natriuret Pep Total Protein Albumin Arterial Blood Glucose 108 H Arterial Blood Ionized Calcium 4.3 L Urine WBC (Auto) Vancomycin Trough Phenytoin Crossmatch 10/09/20 10/10/20 10/10/20 05:46 04:00 04:00 WBC 18.4 H RBC Hgb Hct MCV MCH MCHC RDW 17.5 H Plt Count Lymph % (Auto) 9.8 L [place] % (Auto) 8.8 H Lymph # (Auto) [place] # (Auto) 1.6 H Baso # (Auto) Seg Neutrophils % 80.0 H Seg Neuts % (Manual) Lymphocytes % (Manual) Monocytes % (Manual) Nucleated RBC % Seg Neutrophils # 14.7 H Seg Neutrophils # Man Lymphocytes # (Manual) Monocytes # (Manual) PT INR APTT Fibrinogen D-Dimer ABG pH POC ABG pCO2 POC ABG pO2 ABG pO2 ABG HCO3 ABG Base Excess ABG Hemoglobin ABG Oxyhemoglobin ABG Sodium ABG Potassium ABG Chloride ABG Glucose VBG pH Oxyhemoglobin Carboxyhemoglobin Sodium 146 H Potassium 3.2 L 2.9 L* Chloride 108.9 H 112.6 H Carbon Dioxide BUN 34 H 28 H Creatinine 1.4 H 1.3 H Glucose 109 H 101 H POC Glucose Lactic Acid Calcium 7.6 L 7.8 L Ionized Calcium Phosphorus Magnesium AST 137 H 122 H ALT 99 H 81 H Alkaline Phosphatase Lactate Dehydrogenase NT-Pro-B Natriuret Pep Total Protein 5.1 L 5.2 L Albumin 2.6 L 2.7 L Arterial Blood Glucose Arterial Blood Ionized Calcium Urine WBC (Auto) Vancomycin Trough Phenytoin Crossmatch 10/10/20 10/10/20 10/11/20 04:42 09:50 00:44 WBC RBC Hgb Hct MCV MCH MCHC RDW Plt Count Lymph % (Auto) [place] % (Auto) Lymph # (Auto) [place] # (Auto) Baso # (Auto) Seg Neutrophils % Seg Neuts % (Manual) Lymphocytes % (Manual) Monocytes % (Manual) Nucleated RBC % Seg Neutrophils # Seg Neutrophils # Man Lymphocytes # (Manual) Monocytes # (Manual) PT INR APTT Fibrinogen D-Dimer ABG pH 7.534 H POC ABG pCO2 POC ABG pO2 ABG pO2 95.2 H ABG HCO3 ABG Base Excess ABG Hemoglobin 11.3 L ABG Oxyhemoglobin ABG Sodium ABG Potassium ABG Chloride ABG Glucose VBG pH Oxyhemoglobin Carboxyhemoglobin Sodium Potassium Chloride Carbon Dioxide BUN Creatinine Glucose POC Glucose 109 H 106 H Lactic Acid Calcium Ionized Calcium Phosphorus Magnesium AST ALT Alkaline Phosphatase Lactate Dehydrogenase NT-Pro-B Natriuret Pep Total Protein Albumin Arterial Blood Glucose Arterial Blood Ionized Calcium Urine WBC (Auto) Vancomycin Trough Phenytoin Crossmatch 10/11/20 10/11/20 10/11/20 04:00 04:00 06:08 WBC 27.0 H RBC Hgb Hct MCV MCH MCHC RDW 17.7 H Plt Count Lymph % (Auto) 6.3 L [place] % (Auto) Lymph # (Auto) [place] # (Auto) 1.5 H Baso # (Auto) Seg Neutrophils % 87.1 H Seg Neuts % (Manual) Lymphocytes % (Manual) Monocytes % (Manual) Nucleated RBC % Seg Neutrophils # 23.5 H Seg Neutrophils # Man Lymphocytes # (Manual) Monocytes # (Manual) PT INR APTT Fibrinogen D-Dimer ABG pH POC ABG pCO2 POC ABG pO2 ABG pO2 ABG HCO3 ABG Base Excess ABG Hemoglobin ABG Oxyhemoglobin ABG Sodium ABG Potassium ABG Chloride ABG Glucose VBG pH Oxyhemoglobin Carboxyhemoglobin Sodium Potassium 3.2 L Chloride 110.4 H Carbon Dioxide 19 L BUN 22 H Creatinine Glucose 116 H POC Glucose 107 H Lactic Acid Calcium 7.7 L Ionized Calcium Phosphorus Magnesium 1.60 L AST ALT Alkaline Phosphatase Lactate Dehydrogenase NT-Pro-B Natriuret Pep Total Protein Albumin Arterial Blood Glucose Arterial Blood Ionized Calcium Urine WBC (Auto) Vancomycin Trough Phenytoin Crossmatch 10/11/20 10/11/20 10/12/20 11:41 13:26 03:52 WBC RBC Hgb Hct MCV MCH MCHC RDW Plt Count Lymph % (Auto) [place] % (Auto) Lymph # (Auto) [place] # (Auto) Baso # (Auto) Seg Neutrophils % Seg Neuts % (Manual) Lymphocytes % (Manual) Monocytes % (Manual) Nucleated RBC % Seg Neutrophils # Seg Neutrophils # Man Lymphocytes # (Manual) Monocytes # (Manual) PT INR APTT Fibrinogen D-Dimer ABG pH POC ABG pCO2 POC ABG pO2 ABG pO2 ABG HCO3 ABG Base Excess ABG Hemoglobin ABG Oxyhemoglobin ABG Sodium ABG Potassium ABG Chloride ABG Glucose VBG pH Oxyhemoglobin Carboxyhemoglobin Sodium Potassium Chloride Carbon Dioxide BUN Creatinine Glucose POC Glucose 116 H 114 H Lactic Acid Calcium Ionized Calcium Phosphorus Magnesium AST ALT Alkaline Phosphatase Lactate Dehydrogenase NT-Pro-B Natriuret Pep Total Protein Albumin Arterial Blood Glucose Arterial Blood Ionized Calcium Urine WBC (Auto) 24.0 H Vancomycin Trough Phenytoin Crossmatch 10/12/20 10/12/20 10/12/20 04:24 14:47 21:33 WBC RBC Hgb Hct MCV MCH MCHC RDW Plt Count Lymph % (Auto) [place] % (Auto) Lymph # (Auto) [place] # (Auto) Baso # (Auto) Seg Neutrophils % Seg Neuts % (Manual) Lymphocytes % (Manual) Monocytes % (Manual) Nucleated RBC % Seg Neutrophils # Seg Neutrophils # Man Lymphocytes # (Manual) Monocytes # (Manual) PT INR APTT Fibrinogen D-Dimer ABG pH POC ABG pCO2 POC ABG pO2 ABG pO2 ABG HCO3 ABG Base Excess ABG Hemoglobin ABG Oxyhemoglobin ABG Sodium ABG Potassium ABG Chloride ABG Glucose VBG pH Oxyhemoglobin Carboxyhemoglobin Sodium Potassium Chloride 109.9 H Carbon Dioxide 13 L BUN 18 H Creatinine Glucose 119 H POC Glucose 107 H Lactic Acid Calcium 7.6 L Ionized Calcium Phosphorus Magnesium 1.60 L AST ALT Alkaline Phosphatase Lactate Dehydrogenase NT-Pro-B Natriuret Pep Total Protein Albumin Arterial Blood Glucose Arterial Blood Ionized Calcium Urine WBC (Auto) Vancomycin Trough Phenytoin Crossmatch 10/12/20 10/12/20 10/13/20 Unknown Unknown 07:00 WBC 24.3 H RBC 3.38 L Hgb 9.8 L Hct MCV MCH MCHC RDW 18.7 H Plt Count Lymph % (Auto) [place] % (Auto) Lymph # (Auto) [place] # (Auto) Baso # (Auto) Seg Neutrophils % Seg Neuts % (Manual) 93.5 H Lymphocytes % (Manual) 4.5 L Monocytes % (Manual) Nucleated RBC % Seg Neutrophils # Seg Neutrophils # Man 22.7 H Lymphocytes # (Manual) 1.1 L Monocytes # (Manual) PT INR APTT Fibrinogen D-Dimer ABG pH POC ABG pCO2 POC ABG pO2 ABG pO2 ABG HCO3 ABG Base Excess ABG Hemoglobin ABG Oxyhemoglobin ABG Sodium ABG Potassium ABG Chloride ABG Glucose VBG pH Oxyhemoglobin Carboxyhemoglobin Sodium 135 L D Potassium 3.1 L Chloride Carbon Dioxide 17 L BUN Creatinine Glucose 510 H* POC Glucose Lactic Acid Calcium 7.2 L Ionized Calcium Phosphorus Magnesium AST ALT Alkaline Phosphatase Lactate Dehydrogenase NT-Pro-B Natriuret Pep Total Protein Albumin Arterial Blood Glucose Arterial Blood Ionized Calcium Urine WBC (Auto) Vancomycin Trough Phenytoin 5.7 L Crossmatch 10/13/20 10/13/20 10/13/20 07:00 07:00 07:18 WBC 23.6 H RBC 3.26 L Hgb 9.4 L Hct 28.7 L MCV MCH MCHC RDW 18.3 H Plt Count Lymph % (Auto) [place] % (Auto) Lymph # (Auto) [place] # (Auto) Baso # (Auto) Seg Neutrophils % Seg Neuts % (Manual) Lymphocytes % (Manual) Monocytes % (Manual) Nucleated RBC % Seg Neutrophils # Seg Neutrophils # Man Lymphocytes # (Manual) Monocytes # (Manual) PT INR APTT Fibrinogen D-Dimer ABG pH 7.473 H POC ABG pCO2 20.7 L POC ABG pO2 137.9 H ABG pO2 ABG HCO3 ABG Base Excess ABG Hemoglobin 11.2 L ABG Oxyhemoglobin 98.3 H ABG Sodium 135.9 L ABG Potassium ABG Chloride 111.0 H ABG Glucose 109 H VBG pH Oxyhemoglobin Carboxyhemoglobin 0.3 L Sodium 135 L Potassium 3.5 L Chloride 109.1 H Carbon Dioxide 18 L BUN Creatinine Glucose POC Glucose Lactic Acid Calcium 7.3 L Ionized Calcium Phosphorus Magnesium 1.60 L AST ALT Alkaline Phosphatase Lactate Dehydrogenase NT-Pro-B Natriuret Pep Total Protein Albumin Arterial Blood Glucose 109 H Arterial Blood Ionized Calcium Urine WBC (Auto) Vancomycin Trough Phenytoin Crossmatch 10/14/20 10/14/20 10/15/20 04:00 04:00 05:50 WBC 28.6 H 23.2 H RBC 3.61 L 3.43 L Hgb 9.9 L Hct 30.0 L MCV MCH MCHC RDW 18.3 H 18.2 H Plt Count Lymph % (Auto) [place] % (Auto) Lymph # (Auto) [place] # (Auto) Baso # (Auto) Seg Neutrophils % Seg Neuts % (Manual) 88.0 H 90.0 H Lymphocytes % (Manual) 5.0 L 4.0 L Monocytes % (Manual) Nucleated RBC % Seg Neutrophils # Seg Neutrophils # Man 25.2 H 20.9 H Lymphocytes # (Manual) 0.9 L Monocytes # (Manual) 1.4 H 0.9 H PT INR APTT Fibrinogen D-Dimer ABG pH POC ABG pCO2 POC ABG pO2 ABG pO2 ABG HCO3 ABG Base Excess ABG Hemoglobin ABG Oxyhemoglobin ABG Sodium ABG Potassium ABG Chloride ABG Glucose VBG pH Oxyhemoglobin Carboxyhemoglobin Sodium Potassium Chloride 109.9 H Carbon Dioxide 17 L BUN Creatinine Glucose POC Glucose Lactic Acid Calcium Ionized Calcium Phosphorus Magnesium AST ALT Alkaline Phosphatase Lactate Dehydrogenase NT-Pro-B Natriuret Pep Total Protein Albumin Arterial Blood Glucose Arterial Blood Ionized Calcium Urine WBC (Auto) Vancomycin Trough Phenytoin Crossmatch 10/15/20 10/16/20 10/17/20 05:50 11:57 04:57 WBC 15.2 H RBC 3.43 L Hgb Hct MCV MCH MCHC RDW 18.1 H Plt Count Lymph % (Auto) [place] % (Auto) Lymph # (Auto) [place] # (Auto) Baso # (Auto) Seg Neutrophils % Seg Neuts % (Manual) Lymphocytes % (Manual) Monocytes % (Manual) Nucleated RBC % Seg Neutrophils # Seg Neutrophils # Man Lymphocytes # (Manual) Monocytes # (Manual) PT INR APTT Fibrinogen D-Dimer ABG pH POC ABG pCO2 POC ABG pO2 ABG pO2 ABG HCO3 ABG Base Excess ABG Hemoglobin ABG Oxyhemoglobin ABG Sodium ABG Potassium ABG Chloride ABG Glucose VBG pH Oxyhemoglobin Carboxyhemoglobin Sodium Potassium Chloride 110.3 H Carbon Dioxide 18 L BUN Creatinine Glucose 105 H POC Glucose 111 H Lactic Acid Calcium 8.3 L Ionized Calcium Phosphorus Magnesium AST ALT Alkaline Phosphatase Lactate Dehydrogenase NT-Pro-B Natriuret Pep Total Protein Albumin Arterial Blood Glucose Arterial Blood Ionized Calcium Urine WBC (Auto) Vancomycin Trough Phenytoin Crossmatch 10/17/20 10/17/20 10/18/20 05:25 21:16 01:31 WBC RBC Hgb Hct MCV MCH MCHC RDW Plt Count Lymph % (Auto) [place] % (Auto) Lymph # (Auto) [place] # (Auto) Baso # (Auto) Seg Neutrophils % Seg Neuts % (Manual) Lymphocytes % (Manual) Monocytes % (Manual) Nucleated RBC % Seg Neutrophils # Seg Neutrophils # Man Lymphocytes # (Manual) Monocytes # (Manual) PT INR APTT Fibrinogen D-Dimer ABG pH POC ABG pCO2 POC ABG pO2 ABG pO2 ABG HCO3 ABG Base Excess ABG Hemoglobin ABG Oxyhemoglobin ABG Sodium ABG Potassium ABG Chloride ABG Glucose VBG pH Oxyhemoglobin Carboxyhemoglobin Sodium Potassium Chloride Carbon Dioxide BUN Creatinine Glucose POC Glucose 107 H 106 H 119 H Lactic Acid Calcium Ionized Calcium Phosphorus Magnesium AST ALT Alkaline Phosphatase Lactate Dehydrogenase NT-Pro-B Natriuret Pep Total Protein Albumin Arterial Blood Glucose Arterial Blood Ionized Calcium Urine WBC (Auto) Vancomycin Trough Phenytoin Crossmatch 10/18/20 10/18/20 10/19/20 05:45 11:23 01:14 WBC RBC Hgb Hct MCV MCH MCHC RDW Plt Count Lymph % (Auto) [place] % (Auto) Lymph # (Auto) [place] # (Auto) Baso # (Auto) Seg Neutrophils % Seg Neuts % (Manual) Lymphocytes % (Manual) Monocytes % (Manual) Nucleated RBC % Seg Neutrophils # Seg Neutrophils # Man Lymphocytes # (Manual) Monocytes # (Manual) PT INR APTT Fibrinogen D-Dimer ABG pH POC ABG pCO2 POC ABG pO2 ABG pO2 ABG HCO3 ABG Base Excess ABG Hemoglobin ABG Oxyhemoglobin ABG Sodium ABG Potassium ABG Chloride ABG Glucose VBG pH Oxyhemoglobin Carboxyhemoglobin Sodium Potassium Chloride Carbon Dioxide BUN Creatinine Glucose POC Glucose 106 H 115 H 108 H Lactic Acid Calcium Ionized Calcium Phosphorus Magnesium AST ALT Alkaline Phosphatase Lactate Dehydrogenase NT-Pro-B Natriuret Pep Total Protein Albumin Arterial Blood Glucose Arterial Blood Ionized Calcium Urine WBC (Auto) Vancomycin Trough Phenytoin Crossmatch 10/19/20 10/20/20 10/20/20 09:57 05:40 07:59 WBC RBC Hgb Hct MCV MCH MCHC RDW Plt Count Lymph % (Auto) [place] % (Auto) Lymph # (Auto) [place] # (Auto) Baso # (Auto) Seg Neutrophils % Seg Neuts % (Manual) Lymphocytes % (Manual) Monocytes % (Manual) Nucleated RBC % Seg Neutrophils # Seg Neutrophils # Man Lymphocytes # (Manual) Monocytes # (Manual) PT INR APTT Fibrinogen D-Dimer ABG pH POC ABG pCO2 POC ABG pO2 ABG pO2 ABG HCO3 ABG Base Excess ABG Hemoglobin ABG Oxyhemoglobin ABG Sodium ABG Potassium ABG Chloride ABG Glucose VBG pH Oxyhemoglobin Carboxyhemoglobin Sodium Potassium Chloride Carbon Dioxide BUN Creatinine Glucose 106 H POC Glucose 122 H 109 H Lactic Acid Calcium Ionized Calcium Phosphorus Magnesium AST ALT Alkaline Phosphatase Lactate Dehydrogenase NT-Pro-B Natriuret Pep Total Protein Albumin Arterial Blood Glucose Arterial Blood Ionized Calcium Urine WBC (Auto) Vancomycin Trough Phenytoin Crossmatch 10/20/20 10/20/20 10/21/20 16:52 16:52 13:54 WBC 18.8 H 17.0 H RBC Hgb Hct MCV MCH MCHC RDW 17.7 H 17.8 H Plt Count 547 H 544 H Lymph % (Auto) 11.2 L [place] % (Auto) 8.1 H Lymph # (Auto) [place] # (Auto) 1.5 H Baso # (Auto) 0.2 H Seg Neutrophils % 78.8 H Seg Neuts % (Manual) Lymphocytes % (Manual) Monocytes % (Manual) Nucleated RBC % Seg Neutrophils # 14.8 H Seg Neutrophils # Man Lymphocytes # (Manual) Monocytes # (Manual) PT INR APTT Fibrinogen D-Dimer ABG pH POC ABG pCO2 POC ABG pO2 ABG pO2 ABG HCO3 ABG Base Excess ABG Hemoglobin ABG Oxyhemoglobin ABG Sodium ABG Potassium ABG Chloride ABG Glucose VBG pH Oxyhemoglobin Carboxyhemoglobin Sodium Potassium Chloride Carbon Dioxide BUN Creatinine Glucose POC Glucose Lactic Acid Calcium Ionized Calcium Phosphorus Magnesium AST ALT Alkaline Phosphatase Lactate Dehydrogenase NT-Pro-B Natriuret Pep Total Protein Albumin Arterial Blood Glucose Arterial Blood Ionized Calcium Urine WBC (Auto) Vancomycin Trough 34.5 H Phenytoin Crossmatch 10/21/20 10/22/20 10/23/20 13:54 07:26 05:34 WBC 18.7 H 13.0 H RBC 3.64 L 3.50 L Hgb Hct 30.0 L MCV MCH MCHC 35 H RDW 17.7 H 17.6 H Plt Count 502 H 503 H Lymph % (Auto) [place] % (Auto) Lymph # (Auto) [place] # (Auto) Baso # (Auto) Seg Neutrophils % Seg Neuts % (Manual) Lymphocytes % (Manual) Monocytes % (Manual) Nucleated RBC % Seg Neutrophils # Seg Neutrophils # Man Lymphocytes # (Manual) Monocytes # (Manual) PT INR APTT Fibrinogen D-Dimer ABG pH POC ABG pCO2 POC ABG pO2 ABG pO2 ABG HCO3 ABG Base Excess ABG Hemoglobin ABG Oxyhemoglobin ABG Sodium ABG Potassium ABG Chloride ABG Glucose VBG pH Oxyhemoglobin Carboxyhemoglobin Sodium 136 L Potassium Chloride Carbon Dioxide BUN Creatinine Glucose 120 H POC Glucose Lactic Acid Calcium Ionized Calcium Phosphorus Magnesium AST ALT Alkaline Phosphatase Lactate Dehydrogenase NT-Pro-B Natriuret Pep Total Protein Albumin Arterial Blood Glucose Arterial Blood Ionized Calcium Urine WBC (Auto) Vancomycin Trough Phenytoin Crossmatch 10/23/20 10/26/20 10/27/20 05:34 10:30 07:53 WBC 13.6 H RBC 3.38 L Hgb 10.0 L Hct 28.8 L MCV MCH MCHC 35 H RDW 17.6 H Plt Count Lymph % (Auto) [place] % (Auto) Lymph # (Auto) [place] # (Auto) Baso # (Auto) Seg Neutrophils % Seg Neuts % (Manual) Lymphocytes % (Manual) Monocytes % (Manual) Nucleated RBC % Seg Neutrophils # Seg Neutrophils # Man Lymphocytes # (Manual) Monocytes # (Manual) PT INR APTT Fibrinogen D-Dimer ABG pH 7.459 H POC ABG pCO2 POC ABG pO2 ABG pO2 112.2 H ABG HCO3 ABG Base Excess ABG Hemoglobin ABG Oxyhemoglobin ABG Sodium ABG Potassium ABG Chloride ABG Glucose VBG pH Oxyhemoglobin Carboxyhemoglobin Sodium 135 L Potassium Chloride Carbon Dioxide BUN Creatinine Glucose 105 H POC Glucose Lactic Acid Calcium Ionized Calcium Phosphorus Magnesium AST ALT Alkaline Phosphatase Lactate Dehydrogenase NT-Pro-B Natriuret Pep Total Protein Albumin Arterial Blood Glucose Arterial Blood Ionized Calcium Urine WBC (Auto) Vancomycin Trough Phenytoin Crossmatch 10/27/20 10/27/20 10/28/20 07:53 11:31 05:19 WBC RBC Hgb Hct MCV MCH MCHC RDW Plt Count Lymph % (Auto) [place] % (Auto) Lymph # (Auto) [place] # (Auto) Baso # (Auto) Seg Neutrophils % Seg Neuts % (Manual) Lymphocytes % (Manual) Monocytes % (Manual) Nucleated RBC % Seg Neutrophils # Seg Neutrophils # Man Lymphocytes # (Manual) Monocytes # (Manual) PT INR APTT Fibrinogen D-Dimer ABG pH POC ABG pCO2 POC ABG pO2 ABG pO2 ABG HCO3 ABG Base Excess ABG Hemoglobin ABG Oxyhemoglobin ABG Sodium ABG Potassium ABG Chloride ABG Glucose VBG pH Oxyhemoglobin Carboxyhemoglobin Sodium Potassium Chloride Carbon Dioxide BUN 20 H Creatinine Glucose 112 H POC Glucose 113 H 112 H Lactic Acid Calcium Ionized Calcium Phosphorus Magnesium AST 83 H ALT Alkaline Phosphatase Lactate Dehydrogenase NT-Pro-B Natriuret Pep Total Protein Albumin 3.8 L Arterial Blood Glucose Arterial Blood Ionized Calcium Urine WBC (Auto) Vancomycin Trough Phenytoin Crossmatch 10/29/20 10/29/20 10/29/20 07:56 07:56 11:37 WBC 13.6 H RBC Hgb Hct MCV MCH MCHC RDW 17.0 H Plt Count Lymph % (Auto) [place] % (Auto) Lymph # (Auto) [place] # (Auto) Baso # (Auto) Seg Neutrophils % Seg Neuts % (Manual) 80.0 H Lymphocytes % (Manual) Monocytes % (Manual) Nucleated RBC % Seg Neutrophils # Seg Neutrophils # Man 10.9 H Lymphocytes # (Manual) Monocytes # (Manual) PT INR APTT Fibrinogen D-Dimer ABG pH POC ABG pCO2 POC ABG pO2 ABG pO2 ABG HCO3 ABG Base Excess ABG Hemoglobin ABG Oxyhemoglobin ABG Sodium ABG Potassium ABG Chloride ABG Glucose VBG pH Oxyhemoglobin Carboxyhemoglobin Sodium Potassium Chloride Carbon Dioxide BUN Creatinine Glucose POC Glucose 108 H Lactic Acid Calcium Ionized Calcium Phosphorus 4.70 H Magnesium AST ALT Alkaline Phosphatase Lactate Dehydrogenase NT-Pro-B Natriuret Pep Total Protein Albumin Arterial Blood Glucose Arterial Blood Ionized Calcium Urine WBC (Auto) Vancomycin Trough Phenytoin Crossmatch 10/29/20 10/30/20 10/30/20 13:32 12:11 17:19 WBC RBC Hgb Hct MCV MCH MCHC RDW Plt Count Lymph % (Auto) [place] % (Auto) Lymph # (Auto) [place] # (Auto) Baso # (Auto) Seg Neutrophils % Seg Neuts % (Manual) Lymphocytes % (Manual) Monocytes % (Manual) Nucleated RBC % Seg Neutrophils # Seg Neutrophils # Man Lymphocytes # (Manual) Monocytes # (Manual) PT INR APTT Fibrinogen D-Dimer ABG pH POC ABG pCO2 POC ABG pO2 ABG pO2 ABG HCO3 ABG Base Excess ABG Hemoglobin ABG Oxyhemoglobin ABG Sodium ABG Potassium ABG Chloride ABG Glucose VBG pH Oxyhemoglobin Carboxyhemoglobin Sodium Potassium Chloride Carbon Dioxide BUN Creatinine Glucose POC Glucose 108 H 106 H 107 H Lactic Acid Calcium Ionized Calcium Phosphorus Magnesium AST ALT Alkaline Phosphatase Lactate Dehydrogenase NT-Pro-B Natriuret Pep Total Protein Albumin Arterial Blood Glucose Arterial Blood Ionized Calcium Urine WBC (Auto) Vancomycin Trough Phenytoin Crossmatch 10/31/20 10/31/20 11/01/20 03:20 05:43 04:55 WBC RBC Hgb Hct MCV MCH MCHC RDW Plt Count Lymph % (Auto) [place] % (Auto) Lymph # (Auto) [place] # (Auto) Baso # (Auto) Seg Neutrophils % Seg Neuts % (Manual) Lymphocytes % (Manual) Monocytes % (Manual) Nucleated RBC % Seg Neutrophils # Seg Neutrophils # Man Lymphocytes # (Manual) Monocytes # (Manual) PT INR APTT Fibrinogen D-Dimer ABG pH POC ABG pCO2 POC ABG pO2 ABG pO2 ABG HCO3 ABG Base Excess ABG Hemoglobin ABG Oxyhemoglobin ABG Sodium ABG Potassium ABG Chloride ABG Glucose VBG pH Oxyhemoglobin Carboxyhemoglobin Sodium Potassium Chloride Carbon Dioxide BUN Creatinine Glucose POC Glucose 108 H 115 H 108 H Lactic Acid Calcium Ionized Calcium Phosphorus Magnesium AST ALT Alkaline Phosphatase Lactate Dehydrogenase NT-Pro-B Natriuret Pep Total Protein Albumin Arterial Blood Glucose Arterial Blood Ionized Calcium Urine WBC (Auto) Vancomycin Trough Phenytoin Crossmatch 11/01/20 11/01/20 11/01/20 05:01 16:47 21:36 WBC RBC Hgb Hct MCV MCH MCHC RDW Plt Count Lymph % (Auto) [place] % (Auto) Lymph # (Auto) [place] # (Auto) Baso # (Auto) Seg Neutrophils % Seg Neuts % (Manual) Lymphocytes % (Manual) Monocytes % (Manual) Nucleated RBC % Seg Neutrophils # Seg Neutrophils # Man Lymphocytes # (Manual) Monocytes # (Manual) PT INR APTT Fibrinogen D-Dimer ABG pH POC ABG pCO2 POC ABG pO2 ABG pO2 ABG HCO3 ABG Base Excess ABG Hemoglobin ABG Oxyhemoglobin ABG Sodium ABG Potassium ABG Chloride ABG Glucose VBG pH Oxyhemoglobin Carboxyhemoglobin Sodium 135 L Potassium Chloride Carbon Dioxide BUN Creatinine Glucose POC Glucose 116 H 112 H Lactic Acid Calcium Ionized Calcium Phosphorus Magnesium AST 93 H ALT Alkaline Phosphatase 132 H Lactate Dehydrogenase NT-Pro-B Natriuret Pep Total Protein Albumin 3.6 L Arterial Blood Glucose Arterial Blood Ionized Calcium Urine WBC (Auto) Vancomycin Trough Phenytoin Crossmatch Laboratory Results - last 24 hr 11/01/20 11/01/20 11/01/20 14:53 16:47 21:36 POC Glucose 91 116 H 112 H 11/02/20 05:12 POC Glucose 104
--- NOTE | 2020-11-02 13:05 | Progress Note ---
Assessment and Plan 30 y/o female with Eclampsia, s/p emergent section with DIC, acute respiratory failure and worsening renal function. 11/02/20: Called lab today to ask how to order these send out labs. Continue D10 along with feeds for now. Stopped robinol and no further reports of increased thickness of secretions. given D10 requirement, do not feel comfortable with transition to the floor. 11/01/20: Will stop Robinol as this may be making secretions to thick. Huge risk for mucous plugging given mental state. Continue D10 and waiting on labs from yesterday. LFT's repeated and AST elevated along with alk phos. Both of these were elevated on admission, then resolved and now are elevated again. In current clinical state, not sure what to make of those numbers. They do not help with trying to figure out hypoglycemia and persistent need for D10. Continue IMCU care. 10/31/20: Will order midline for IV team vs peripheral IV's (multiple). Needs access for d10 as we have not been able to figure out why she is so hypoglyemic. Will measure serum insulin levels and C-peptide levels, as well proinsulin. All of these labs are sendouts so will have to call down to ask how to order as they are not coming up in [facility]. Given her requirement for supplemental IV sugar, not a candidate for floor transfer. 10/30/20: Continue step down monitoring for now. If does well the next 24-36 hours, then will consider floor transfer. Really needs to continue PT with PROM. Will speak with CM about options for here now that critical needs are becoming minimal. 10/29/20: Off vent now for 24 hours. Tolerating T-Piece. Will transition to step down for a few days. If does well there, consider transition to floor. Continue PT. 10/28/20: Daily T-piece trials for as long as tolerated. Attempt to push further daily. OT does not do passive range of motion. Per PT note will do passive range of motion with patient. Guarded prognosis. Hoping to wean off vent and transition to floor. 10/27/20: Continue daily T-piece trials for as long as tolerated. Ok with resting on either PSV or full rate if needed at night but need to strengthen her respiratory muscles. PT/OT if possible. Will transition to step down prior to going to floor to insure stability. 10/26/20: Will obtain ABG today. If good, will attempt on T-piece later. Continue PT/OT. Will speak with CM about possibility of LTACH or nursing facility that can take trached patients. 10/23/20: Daily PSV trials for as long as patient will tolerate. Needs PT/OT con sult for passive range of motion. 10/22/20: Will start prolonged PSV trials. Attempt to wean from vent and then transition to floor to see if mental status improves. Continue tube feeds. 10/21/20: Trach and peg placed. No sedation. Restart Lovenox for Upper Ext DVT. Restart feeds when surgery states ok to use PEG. C. Diff treatment per ID. Guarded prognosis. Will be a exterminator helper termite wean. Hopeful to wean off vent at least and then can transfer to floor. 10/20/20: NPO after midnight. DVT study just read from 10/14 on yesterday showing upper ext DVT. Started on Lovenox but need to hold therapy until after surgery. could be source of fevers. No sedation. 10/19/20: Stable BP. Will meet/talk with family at noon over the phone with myself and case management. Need to discuss goals of care and what next steps would be. Patient would need trach and peg and transfer to LTACH if family ok with this. Follow up speciation of GNR's in blood. Has been on Cefepime. Continues therapy for C. Diff. Guarded prognosis. Continue daily PSV trials but not ready for extubation secondary to mental state. 10/18/20: Blood pressure is much better with the addition of meds started on yest erday. Need to have family meeting jesica in regards to goals of care. Continue Daily PSV trials but not ready for extubation. Continue therapy for C. Diff per ID. 10/17/20: CT scan was of no help in regards to fevers. C. Diff is positive and BP now is more uncontrolled despite increasing labetalol. Today will increase to 300 TID. Added TID Hydralazine and added PO lasix given her mild pulmonary htn seen on echo. Spoke with mother over the phone and she requests to come see the patient. Given current circumstances, will allow her to come briefly today and then will speak with her at the bedside. No neurology is available at the time and suspect these will be the majority of her questions. Tolerated PSV briefly yesterday and will do again today but not for extended periods as given her mental state she is not a candidate for extubation. I will also ask the mother about exterminator helper termite care (trach and peg) when she comes today. Overall prognosis is guarded to poor. If oral meds cannot regulate blood pressure, may need Cardene drip. Continue therapy for C. Diff per ID. Subjective Date of service: 11/02/20 Principal diagnosis: Eclampsia/HELLP Syndrome, ADOLPH, DIC; s/p , s/p supracervical hyst Interval history: No acute events. Remains unresponsive. Still requiring d10. tolerating tube feeds. Objective Vital Signs - 12hr 11/02/20 11/02/20 11/02/20 02:00 03:00 03:40 Temperature 98.7 F Pulse Rate 110 H 95 H Respiratory 21 24 Rate Blood Pressure 116/63 114/59 O2 Sat by Pulse 93 100 Oximetry O2 Sat by Pulse Oximetry [ Assessment] 11/02/20 11/02/20 11/02/20 04:00 04:15 04:37 Temperature Pulse Rate 104 H 91 H Respiratory 27 H Rate Blood Pressure 108/58 O2 Sat by Pulse 100 Oximetry O2 Sat by Pulse 99 Oximetry [ Assessment] 11/02/20 11/02/20 11/02/20 05:00 06:00 06:29 Temperature Pulse Rate 118 H 99 H 113 H Respiratory 42 H 25 H Rate Blood Pressure 108/67 111/54 111/54 O2 Sat by Pulse 99 99 Oximetry O2 Sat by Pulse Oximetry [ Assessment] 11/02/20 11/02/20 11/02/20 07:00 07:40 07:47 Temperature 102.4 F H Pulse Rate 97 H Respiratory 25 H Rate Blood Pressure 101/53 O2 Sat by Pulse 100 99 Oximetry O2 Sat by Pulse 99 Oximetry [ Assessment] 11/02/20 11/02/20 11/02/20 08:00 09:00 10:00 Temperature 100.9 F H Pulse Rate 99 H 120 H 105 H Respiratory 25 H 27 H 29 H Rate Blood Pressure 104/46 99/54 107/57 O2 Sat by Pulse 100 100 98 Oximetry O2 Sat by Pulse Oximetry [ Assessment] 11/02/20 11/02/20 11:00 11:17 Temperature 100.1 F H Pulse Rate 105 H Respiratory 29 H Rate Blood Pressure 113/75 O2 Sat by Pulse 100 Oximetry O2 Sat by Pulse Oximetry [ Assessment] Constitutional: comatose, other (critically ill on ventilator trach) Eyes: non-icteric ENT: oropharynx moist, other (orally intubated and not sedated) Neck: other (large in cirumference) Effort: normal Ascultation: Bilateral: clear, diminished breath sounds, other (coarse BS bilaterally w/ mild faint wheezes) Percussion: Bilateral: not dull Cardiovascular: regular rate and rhythm, other (no mrg) Gastrointestinal: normoactive bowel sounds, soft, other (post surgical changes with drain on the left side) Extremities: no cyanosis, pink and warm, anasarca Neurologic: other (unresponsive, not following commands, not tracking) Psychiatric: other (unable to assess) CBC and BMP: 10/29/20 07:56 11/01/20 05:01 ABG, PT/INR, D-dimer: ABG ABG pH 7.459 pH Units (7.350-7.450) H 10/26/20 10:30 POC ABG pCO2 20.7 mmHg (32.0-48.0) L 10/13/20 07:18 ABG pCO2 32.4 mm Hg 10/26/20 10:30 POC ABG pO2 137.9 mmHg (83-108) H 10/13/20 07:18 ABG pO2 112.2 mm Hg (80.0-90.0) H 10/26/20 10:30 POC ABG HCO3 14.8 10/13/20 07:18 ABG O2 Saturation 98.2 % (95.0-99.0) 10/26/20 10:30 PT/INR, D-dimer PT 13.6 Sec. (12.2-14.9) 10/21/20 13:54 INR 1.06 (0.87-1.13) 10/21/20 13:54 D-Dimer > 20388 ng/mlDDU (0-234) H 10/04/20 10:00 Abnormal lab findings: Abnormal Labs 10/02/20 10/02/20 10/02/20 12:03 12:18 12:18 WBC 14.9 H RBC Hgb 9.1 L Hct MCV MCH 22 L MCHC 28 L RDW 17.6 H Plt Count 102 L Lymph % (Auto) [place] % (Auto) Lymph # (Auto) [place] # (Auto) Baso # (Auto) Seg Neutrophils % Seg Neuts % (Manual) 36.0 L Lymphocytes % (Manual) 49.0 H Monocytes % (Manual) Nucleated RBC % 6.0 H Seg Neutrophils # Seg Neutrophils # Man Lymphocytes # (Manual) 7.3 H Monocytes # (Manual) PT INR APTT Fibrinogen D-Dimer ABG pH POC ABG pCO2 POC ABG pO2 ABG pO2 ABG HCO3 ABG Base Excess ABG Hemoglobin ABG Oxyhemoglobin ABG Sodium ABG Potassium ABG Chloride ABG Glucose VBG pH Oxyhemoglobin Carboxyhemoglobin Sodium 134 L Potassium Chloride Carbon Dioxide 12 L BUN 6 L Creatinine Glucose 390 H POC Glucose 451 H Lactic Acid Calcium Ionized Calcium Phosphorus Magnesium AST 135 H ALT 85 H Alkaline Phosphatase 172 H Lactate Dehydrogenase 641 H NT-Pro-B Natriuret Pep Total Protein 5.4 L Albumin 2.3 L Arterial Blood Glucose Arterial Blood Ionized Calcium Urine WBC (Auto) Vancomycin Trough Phenytoin Crossmatch 10/02/20 10/02/20 10/02/20 12:50 13:05 13:05 WBC 38.6 H RBC Hgb 8.9 L Hct 29.0 L MCV 73 L MCH 22 L MCHC RDW 17.2 H Plt Count Lymph % (Auto) [place] % (Auto) Lymph # (Auto) [place] # (Auto) Baso # (Auto) Seg Neutrophils % Seg Neuts % (Manual) Lymphocytes % (Manual) Monocytes % (Manual) Nucleated RBC % 2.0 H Seg Neutrophils # Seg Neutrophils # Man 20.1 H Lymphocytes # (Manual) 10.4 H Monocytes # (Manual) 2.3 H PT INR APTT Fibrinogen D-Dimer ABG pH POC ABG pCO2 POC ABG pO2 ABG pO2 ABG HCO3 ABG Base Excess ABG Hemoglobin ABG Oxyhemoglobin ABG Sodium ABG Potassium ABG Chloride ABG Glucose VBG pH Oxyhemoglobin Carboxyhemoglobin Sodium Potassium Chloride Carbon Dioxide BUN Creatinine Glucose POC Glucose Lactic Acid Calcium Ionized Calcium Phosphorus Magnesium AST 184 H ALT 113 H Alkaline Phosphatase Lactate Dehydrogenase 769 H NT-Pro-B Natriuret Pep Total Protein Albumin Arterial Blood Glucose Arterial Blood Ionized Calcium Urine WBC (Auto) Vancomycin Trough Phenytoin Crossmatch See Detail 10/02/20 10/02/20 10/02/20 16:25 16:35 16:35 WBC RBC Hgb Hct MCV MCH MCHC RDW Plt Count Lymph % (Auto) [place] % (Auto) Lymph # (Auto) [place] # (Auto) Baso # (Auto) Seg Neutrophils % Seg Neuts % (Manual) Lymphocytes % (Manual) Monocytes % (Manual) Nucleated RBC % Seg Neutrophils # Seg Neutrophils # Man Lymphocytes # (Manual) Monocytes # (Manual) PT INR APTT Fibrinogen D-Dimer ABG pH 7.031 L* POC ABG pCO2 POC ABG pO2 ABG pO2 116.8 H ABG HCO3 12.7 L ABG Base Excess -16.9 L ABG Hemoglobin 7.8 L ABG Oxyhemoglobin ABG Sodium ABG Potassium ABG Chloride ABG Glucose VBG pH Oxyhemoglobin 94.9 L Carboxyhemoglobin Sodium Potassium Chloride Carbon Dioxide BUN Creatinine Glucose 403 H POC Glucose Lactic Acid 11.40 H* Calcium 6.3 L D Ionized Calcium Phosphorus Magnesium AST 70 H ALT Alkaline Phosphatase Lactate Dehydrogenase NT-Pro-B Natriuret Pep Total Protein 1.9 L D Albumin 1.2 L Arterial Blood Glucose Arterial Blood Ionized Calcium Urine WBC (Auto) Vancomycin Trough Phenytoin Crossmatch 10/02/20 10/02/20 10/02/20 18:18 18:18 22:30 WBC 11.5 H RBC 2.06 L Hgb 5.5 L* D Hct 17.3 L* D MCV MCH 27 L MCHC RDW 19.5 H Plt Count 60 L Lymph % (Auto) [place] % (Auto) Lymph # (Auto) [place] # (Auto) Baso # (Auto) Seg Neutrophils % Seg Neuts % (Manual) Lymphocytes % (Manual) 8.0 L Monocytes % (Manual) 8.0 H Nucleated RBC % 8.0 H Seg Neutrophils # Seg Neutrophils # Man Lymphocytes # (Manual) 0.9 L Monocytes # (Manual) 0.9 H PT 37.1 H INR 3.71 H APTT 135.8 H* Fibrinogen D-Dimer ABG pH 7.067 L* POC ABG pCO2 POC ABG pO2 ABG pO2 183.0 H ABG HCO3 14.1 L ABG Base Excess -15.1 L ABG Hemoglobin 7.7 L ABG Oxyhemoglobin ABG Sodium ABG Potassium ABG Chloride ABG Glucose VBG pH Oxyhemoglobin Carboxyhemoglobin Sodium Potassium Chloride Carbon Dioxide BUN Creatinine Glucose POC Glucose Lactic Acid Calcium Ionized Calcium Phosphorus Magnesium AST ALT Alkaline Phosphatase Lactate Dehydrogenase NT-Pro-B Natriuret Pep Total Protein Albumin Arterial Blood Glucose Arterial Blood Ionized Calcium Urine WBC (Auto) Vancomycin Trough Phenytoin Crossmatch 10/02/20 10/02/20 10/03/20 Unknown Unknown 00:01 WBC RBC Hgb Hct MCV MCH MCHC RDW Plt Count Lymph % (Auto) [place] % (Auto) Lymph # (Auto) [place] # (Auto) Baso # (Auto) Seg Neutrophils % Seg Neuts % (Manual) Lymphocytes % (Manual) Monocytes % (Manual) Nucleated RBC % Seg Neutrophils # Seg Neutrophils # Man Lymphocytes # (Manual) Monocytes # (Manual) PT 61.1 H INR 6.92 H* APTT 158.7 H* Fibrinogen < 60 L* D-Dimer > 65894 H ABG pH POC ABG pCO2 POC ABG pO2 ABG pO2 ABG HCO3 ABG Base Excess ABG Hemoglobin ABG Oxyhemoglobin ABG Sodium ABG Potassium ABG Chloride ABG Glucose VBG pH 6.949 L* Oxyhemoglobin Carboxyhemoglobin Sodium Potassium Chloride Carbon Dioxide BUN Creatinine Glucose POC Glucose 196 H Lactic Acid Calcium Ionized Calcium Phosphorus Magnesium AST ALT Alkaline Phosphatase Lactate Dehydrogenase NT-Pro-B Natriuret Pep Total Protein Albumin Arterial Blood Glucose Arterial Blood Ionized Calcium Urine WBC (Auto) Vancomycin Trough Phenytoin Crossmatch 10/03/20 10/03/20 10/03/20 00:40 00:40 00:40 WBC RBC Hgb Hct MCV MCH MCHC RDW Plt Count Lymph % (Auto) [place] % (Auto) Lymph # (Auto) [place] # (Auto) Baso # (Auto) Seg Neutrophils % Seg Neuts % (Manual) Lymphocytes % (Manual) Monocytes % (Manual) Nucleated RBC % Seg Neutrophils # Seg Neutrophils # Man Lymphocytes # (Manual) Monocytes # (Manual) PT 15.1 H INR 1.21 H APTT Fibrinogen D-Dimer ABG pH POC ABG pCO2 POC ABG pO2 ABG pO2 ABG HCO3 ABG Base Excess ABG Hemoglobin ABG Oxyhemoglobin ABG Sodium ABG Potassium ABG Chloride ABG Glucose VBG pH Oxyhemoglobin Carboxyhemoglobin Sodium 136 L Potassium Chloride Carbon Dioxide BUN Creatinine 1.6 H D Glucose 106 H POC Glucose Lactic Acid 5.60 H* Calcium 6.5 L Ionized Calcium Phosphorus Magnesium AST 232 H ALT 104 H Alkaline Phosphatase Lactate Dehydrogenase NT-Pro-B Natriuret Pep Total Protein 3.9 L D Albumin 2.4 L Arterial Blood Glucose Arterial Blood Ionized Calcium Urine WBC (Auto) Vancomycin Trough Phenytoin Crossmatch 10/03/20 10/03/20 10/03/20 02:08 02:08 02:08 WBC 17.6 H RBC 3.27 L Hgb 9.9 L D Hct 29.9 L D MCV MCH MCHC RDW 16.5 H Plt Count 75 L Lymph % (Auto) [place] % (Auto) Lymph # (Auto) [place] # (Auto) Baso # (Auto) Seg Neutrophils % Seg Neuts % (Manual) 76.0 H Lymphocytes % (Manual) Monocytes % (Manual) Nucleated RBC % 8.0 H Seg Neutrophils # Seg Neutrophils # Man 13.4 H Lymphocytes # (Manual) Monocytes # (Manual) PT INR APTT Fibrinogen D-Dimer ABG pH POC ABG pCO2 POC ABG pO2 ABG pO2 ABG HCO3 ABG Base Excess ABG Hemoglobin ABG Oxyhemoglobin ABG Sodium ABG Potassium ABG Chloride ABG Glucose VBG pH Oxyhemoglobin Carboxyhemoglobin Sodium Potassium Chloride Carbon Dioxide 19 L BUN Creatinine 1.4 H Glucose 306 H POC Glucose Lactic Acid 10.50 H* Calcium 6.4 L Ionized Calcium Phosphorus Magnesium AST ALT Alkaline Phosphatase Lactate Dehydrogenase NT-Pro-B Natriuret Pep Total Protein Albumin Arterial Blood Glucose Arterial Blood Ionized Calcium Urine WBC (Auto) Vancomycin Trough Phenytoin Crossmatch 10/03/20 10/03/20 10/03/20 02:42 03:59 05:31 WBC RBC Hgb Hct MCV MCH MCHC RDW Plt Count Lymph % (Auto) [place] % (Auto) Lymph # (Auto) [place] # (Auto) Baso # (Auto) Seg Neutrophils % Seg Neuts % (Manual) Lymphocytes % (Manual) Monocytes % (Manual) Nucleated RBC % Seg Neutrophils # Seg Neutrophils # Man Lymphocytes # (Manual) Monocytes # (Manual) PT INR APTT Fibrinogen D-Dimer ABG pH 7.144 L POC ABG pCO2 54.4 H POC ABG pO2 ABG pO2 ABG HCO3 ABG Base Excess ABG Hemoglobin 10.0 L ABG Oxyhemoglobin ABG Sodium ABG Potassium ABG Chloride 108.0 H ABG Glucose 306 H VBG pH Oxyhemoglobin Carboxyhemoglobin Sodium Potassium Chloride Carbon Dioxide BUN Creatinine Glucose POC Glucose 209 H Lactic Acid 9.20 H* Calcium Ionized Calcium Phosphorus Magnesium AST ALT Alkaline Phosphatase Lactate Dehydrogenase NT-Pro-B Natriuret Pep Total Protein Albumin Arterial Blood Glucose 306 H Arterial Blood Ionized Calcium 3.7 L Urine WBC (Auto) Vancomycin Trough Phenytoin Crossmatch 10/03/20 10/03/20 10/03/20 09:00 09:00 09:00 WBC 27.4 H RBC 2.84 L Hgb 8.5 L Hct 25.1 L MCV MCH MCHC RDW 16.1 H Plt Count 72 L Lymph % (Auto) [place] % (Auto) Lymph # (Auto) [place] # (Auto) Baso # (Auto) Seg Neutrophils % Seg Neuts % (Manual) Lymphocytes % (Manual) 11.0 L Monocytes % (Manual) Nucleated RBC % 3.0 H Seg Neutrophils # Seg Neutrophils # Man 18.4 H Lymphocytes # (Manual) Monocytes # (Manual) 1.9 H PT INR APTT Fibrinogen D-Dimer ABG pH POC ABG pCO2 POC ABG pO2 ABG pO2 ABG HCO3 ABG Base Excess ABG Hemoglobin ABG Oxyhemoglobin ABG Sodium ABG Potassium ABG Chloride ABG Glucose VBG pH Oxyhemoglobin Carboxyhemoglobin Sodium Potassium Chloride Carbon Dioxide BUN Creatinine 1.7 H Glucose 216 H POC Glucose Lactic Acid 9.20 H* Calcium 6.3 L Ionized Calcium Phosphorus Magnesium AST 331 H ALT 171 H Alkaline Phosphatase Lactate Dehydrogenase NT-Pro-B Natriuret Pep Total Protein 3.7 L Albumin 1.9 L Arterial Blood Glucose Arterial Blood Ionized Calcium Urine WBC (Auto) Vancomycin Trough Phenytoin Crossmatch 10/03/20 10/03/20 10/03/20 11:20 11:46 11:50 WBC 28.7 H RBC 2.67 L Hgb 8.0 L Hct 23.7 L MCV MCH MCHC RDW 16.6 H Plt Count 76 L Lymph % (Auto) [place] % (Auto) Lymph # (Auto) [place] # (Auto) Baso # (Auto) Seg Neutrophils % Seg Neuts % (Manual) Lymphocytes % (Manual) Monocytes % (Manual) Nucleated RBC % Seg Neutrophils # Seg Neutrophils # Man Lymphocytes # (Manual) Monocytes # (Manual) PT INR APTT Fibrinogen D-Dimer ABG pH POC ABG pCO2 POC ABG pO2 ABG pO2 ABG HCO3 ABG Base Excess ABG Hemoglobin ABG Oxyhemoglobin ABG Sodium ABG Potassium ABG Chloride ABG Glucose VBG pH Oxyhemoglobin Carboxyhemoglobin Sodium Potassium Chloride Carbon Dioxide BUN Creatinine Glucose POC Glucose 125 H Lactic Acid 8.00 H* Calcium Ionized Calcium Phosphorus Magnesium AST ALT Alkaline Phosphatase Lactate Dehydrogenase NT-Pro-B Natriuret Pep Total Protein Albumin Arterial Blood Glucose Arterial Blood Ionized Calcium Urine WBC (Auto) Vancomycin Trough Phenytoin Crossmatch 10/03/20 10/04/20 10/04/20 11:50 00:40 00:40 WBC RBC Hgb 6.8 L Hct 19.4 L* MCV MCH MCHC RDW Plt Count 49 L Lymph % (Auto) [place] % (Auto) Lymph # (Auto) [place] # (Auto) Baso # (Auto) Seg Neutrophils % Seg Neuts % (Manual) Lymphocytes % (Manual) Monocytes % (Manual) Nucleated RBC % Seg Neutrophils # Seg Neutrophils # Man Lymphocytes # (Manual) Monocytes # (Manual) PT INR APTT Fibrinogen D-Dimer ABG pH 7.244 L POC ABG pCO2 POC ABG pO2 ABG pO2 ABG HCO3 ABG Base Excess -4.5 L ABG Hemoglobin 7.3 L ABG Oxyhemoglobin ABG Sodium ABG Potassium ABG Chloride ABG Glucose VBG pH Oxyhemoglobin Carboxyhemoglobin Sodium Potassium Chloride Carbon Dioxide BUN Creatinine Glucose POC Glucose Lactic Acid Calcium Ionized Calcium Phosphorus Magnesium AST ALT Alkaline Phosphatase Lactate Dehydrogenase NT-Pro-B Natriuret Pep Total Protein Albumin Arterial Blood Glucose Arterial Blood Ionized Calcium Urine WBC (Auto) Vancomycin Trough Phenytoin Crossmatch 10/04/20 10/04/20 10/04/20 03:53 10:00 10:00 WBC 14.6 H RBC 2.57 L Hgb 7.6 L Hct 22.5 L MCV MCH MCHC RDW 15.8 H Plt Count 38 L Lymph % (Auto) 7.7 L [place] % (Auto) Lymph # (Auto) 1.1 L [place] # (Auto) 0.9 H Baso # (Auto) Seg Neutrophils % 85.6 H Seg Neuts % (Manual) Lymphocytes % (Manual) Monocytes % (Manual) Nucleated RBC % Seg Neutrophils # 12.5 H Seg Neutrophils # Man Lymphocytes # (Manual) Monocytes # (Manual) PT INR APTT Fibrinogen D-Dimer ABG pH POC ABG pCO2 POC ABG pO2 110.6 H ABG pO2 ABG HCO3 ABG Base Excess ABG Hemoglobin 6.7 L ABG Oxyhemoglobin ABG Sodium 132.0 L ABG Potassium ABG Chloride ABG Glucose 111 H VBG pH Oxyhemoglobin Carboxyhemoglobin Sodium 134 L D Potassium Chloride 97.6 L Carbon Dioxide BUN Creatinine 1.7 H Glucose POC Glucose Lactic Acid Calcium 6.3 L Ionized Calcium Phosphorus Magnesium AST 203 H ALT 81 H Alkaline Phosphatase Lactate Dehydrogenase NT-Pro-B Natriuret Pep Total Protein 3.9 L Albumin 2.3 L Arterial Blood Glucose 111 H Arterial Blood Ionized Calcium 3.5 L Urine WBC (Auto) Vancomycin Trough Phenytoin Crossmatch 10/04/20 10/04/20 10/04/20 10:00 10:00 10:14 WBC RBC Hgb Hct MCV MCH MCHC RDW Plt Count Lymph % (Auto) [place] % (Auto) Lymph # (Auto) [place] # (Auto) Baso # (Auto) Seg Neutrophils % Seg Neuts % (Manual) Lymphocytes % (Manual) Monocytes % (Manual) Nucleated RBC % Seg Neutrophils # Seg Neutrophils # Man Lymphocytes # (Manual) Monocytes # (Manual) PT INR APTT Fibrinogen D-Dimer > 71103 H ABG pH POC ABG pCO2 POC ABG pO2 ABG pO2 ABG HCO3 ABG Base Excess ABG Hemoglobin ABG Oxyhemoglobin ABG Sodium ABG Potassium ABG Chloride ABG Glucose VBG pH Oxyhemoglobin Carboxyhemoglobin Sodium Potassium Chloride Carbon Dioxide BUN Creatinine Glucose POC Glucose Lactic Acid 3.90 H* Calcium Ionized Calcium Phosphorus Magnesium AST ALT Alkaline Phosphatase Lactate Dehydrogenase NT-Pro-B Natriuret Pep 2788 H Total Protein Albumin Arterial Blood Glucose Arterial Blood Ionized Calcium Urine WBC (Auto) Vancomycin Trough Phenytoin Crossmatch 10/04/20 10/04/20 10/04/20 14:00 14:00 18:00 WBC 15.7 H RBC 3.17 L Hgb 9.3 L 9.6 L Hct 27.2 L 28.0 L MCV MCH MCHC RDW 16.9 H Plt Count 41 L Lymph % (Auto) 8.6 L [place] % (Auto) Lymph # (Auto) [place] # (Auto) 0.9 H Baso # (Auto) Seg Neutrophils % 85.4 H Seg Neuts % (Manual) Lymphocytes % (Manual) Monocytes % (Manual) Nucleated RBC % Seg Neutrophils # 13.4 H Seg Neutrophils # Man Lymphocytes # (Manual) Monocytes # (Manual) PT INR APTT Fibrinogen D-Dimer ABG pH POC ABG pCO2 POC ABG pO2 ABG pO2 ABG HCO3 ABG Base Excess ABG Hemoglobin ABG Oxyhemoglobin ABG Sodium ABG Potassium ABG Chloride ABG Glucose VBG pH Oxyhemoglobin Carboxyhemoglobin Sodium 133 L Potassium Chloride 96.4 L Carbon Dioxide BUN 18 H Creatinine 1.7 H Glucose POC Glucose Lactic Acid Calcium 6.3 L Ionized Calcium Phosphorus Magnesium AST ALT Alkaline Phosphatase Lactate Dehydrogenase NT-Pro-B Natriuret Pep Total Protein Albumin Arterial Blood Glucose Arterial Blood Ionized Calcium Urine WBC (Auto) Vancomycin Trough Phenytoin Crossmatch 10/04/20 10/04/20 10/05/20 18:00 22:00 05:00 WBC 17.6 H RBC 3.34 L Hgb 9.9 L Hct 29.4 L MCV MCH MCHC RDW 17.1 H Plt Count 56 L Lymph % (Auto) 8.5 L [place] % (Auto) Lymph # (Auto) [place] # (Auto) 1.0 H Baso # (Auto) Seg Neutrophils % 85.1 H Seg Neuts % (Manual) Lymphocytes % (Manual) Monocytes % (Manual) Nucleated RBC % Seg Neutrophils # 15.0 H Seg Neutrophils # Man Lymphocytes # (Manual) Monocytes # (Manual) PT INR APTT Fibrinogen D-Dimer ABG pH POC ABG pCO2 POC ABG pO2 ABG pO2 ABG HCO3 ABG Base Excess ABG Hemoglobin ABG Oxyhemoglobin ABG Sodium ABG Potassium ABG Chloride ABG Glucose VBG pH Oxyhemoglobin Carboxyhemoglobin Sodium 136 L Potassium Chloride Carbon Dioxide BUN 18 H Creatinine 1.7 H Glucose POC Glucose Lactic Acid 2.30 H* Calcium 6.6 L Ionized Calcium Phosphorus Magnesium AST ALT Alkaline Phosphatase Lactate Dehydrogenase NT-Pro-B Natriuret Pep Total Protein Albumin Arterial Blood Glucose Arterial Blood Ionized Calcium Urine WBC (Auto) Vancomycin Trough Phenytoin Crossmatch 10/05/20 10/05/20 10/05/20 05:00 05:00 05:03 WBC RBC Hgb Hct MCV MCH MCHC RDW Plt Count Lymph % (Auto) [place] % (Auto) Lymph # (Auto) [place] # (Auto) Baso # (Auto) Seg Neutrophils % Seg Neuts % (Manual) Lymphocytes % (Manual) Monocytes % (Manual) Nucleated RBC % Seg Neutrophils # Seg Neutrophils # Man Lymphocytes # (Manual) Monocytes # (Manual) PT INR APTT Fibrinogen D-Dimer ABG pH 7.458 H POC ABG pCO2 POC ABG pO2 ABG pO2 74.3 L ABG HCO3 27.5 H ABG Base Excess 3.4 H ABG Hemoglobin 10.0 L ABG Oxyhemoglobin ABG Sodium ABG Potassium ABG Chloride ABG Glucose VBG pH Oxyhemoglobin 94.9 L Carboxyhemoglobin Sodium Potassium Chloride Carbon Dioxide BUN 19 H Creatinine 1.8 H Glucose POC Glucose Lactic Acid Calcium 6.8 L Ionized Calcium 3.9 L Phosphorus Magnesium AST 225 H ALT 85 H Alkaline Phosphatase Lactate Dehydrogenase NT-Pro-B Natriuret Pep Total Protein 4.5 L Albumin 2.7 L Arterial Blood Glucose Arterial Blood Ionized Calcium Urine WBC (Auto) Vancomycin Trough Phenytoin Crossmatch 10/05/20 10/05/20 10/05/20 10:10 15:00 19:40 WBC RBC Hgb Hct MCV MCH MCHC RDW Plt Count Lymph % (Auto) [place] % (Auto) Lymph # (Auto) [place] # (Auto) Baso # (Auto) Seg Neutrophils % Seg Neuts % (Manual) Lymphocytes % (Manual) Monocytes % (Manual) Nucleated RBC % Seg Neutrophils # Seg Neutrophils # Man Lymphocytes # (Manual) Monocytes # (Manual) PT INR APTT Fibrinogen D-Dimer ABG pH POC ABG pCO2 POC ABG pO2 ABG pO2 ABG HCO3 ABG Base Excess ABG Hemoglobin ABG Oxyhemoglobin ABG Sodium ABG Potassium ABG Chloride ABG Glucose VBG pH Oxyhemoglobin Carboxyhemoglobin Sodium Potassium 3.5 L Chloride Carbon Dioxide 31 H 32 H BUN 19 H 19 H Creatinine 1.8 H 1.8 H Glucose POC Glucose Lactic Acid Calcium 7.0 L 7.2 L Ionized Calcium Phosphorus Magnesium 2.90 H AST ALT Alkaline Phosphatase Lactate Dehydrogenase NT-Pro-B Natriuret Pep Total Protein Albumin Arterial Blood Glucose Arterial Blood Ionized Calcium Urine WBC (Auto) Vancomycin Trough Phenytoin Crossmatch 10/06/20 10/06/20 10/06/20 01:05 03:12 04:00 WBC 17.1 H RBC 3.47 L Hgb Hct MCV MCH MCHC RDW 17.4 H Plt Count 82 L Lymph % (Auto) 8.3 L [place] % (Auto) Lymph # (Auto) [place] # (Auto) 1.1 H Baso # (Auto) Seg Neutrophils % 83.8 H Seg Neuts % (Manual) Lymphocytes % (Manual) Monocytes % (Manual) Nucleated RBC % Seg Neutrophils # 14.3 H Seg Neutrophils # Man Lymphocytes # (Manual) Monocytes # (Manual) PT INR APTT Fibrinogen D-Dimer ABG pH 7.474 H POC ABG pCO2 POC ABG pO2 129.5 H ABG pO2 ABG HCO3 ABG Base Excess ABG Hemoglobin 11.4 L ABG Oxyhemoglobin ABG Sodium 131.8 L ABG Potassium ABG Chloride ABG Glucose 103 H VBG pH Oxyhemoglobin Carboxyhemoglobin 0.3 L Sodium Potassium Chloride Carbon Dioxide BUN Creatinine Glucose POC Glucose Lactic Acid Calcium Ionized Calcium Phosphorus Magnesium 3.70 H AST ALT Alkaline Phosphatase Lactate Dehydrogenase NT-Pro-B Natriuret Pep Total Protein Albumin Arterial Blood Glucose 103 H Arterial Blood Ionized Calcium 4.2 L Urine WBC (Auto) Vancomycin Trough Phenytoin Crossmatch 10/06/20 10/06/20 10/06/20 04:00 05:31 08:12 WBC RBC Hgb Hct MCV MCH MCHC RDW Plt Count Lymph % (Auto) [place] % (Auto) Lymph # (Auto) [place] # (Auto) Baso # (Auto) Seg Neutrophils % Seg Neuts % (Manual) Lymphocytes % (Manual) Monocytes % (Manual) Nucleated RBC % Seg Neutrophils # Seg Neutrophils # Man Lymphocytes # (Manual) Monocytes # (Manual) PT INR APTT Fibrinogen D-Dimer ABG pH POC ABG pCO2 POC ABG pO2 ABG pO2 ABG HCO3 ABG Base Excess ABG Hemoglobin ABG Oxyhemoglobin ABG Sodium ABG Potassium ABG Chloride ABG Glucose VBG pH Oxyhemoglobin Carboxyhemoglobin Sodium Potassium 3.5 L Chloride Carbon Dioxide BUN 19 H Creatinine 1.8 H Glucose 102 H POC Glucose 116 H Lactic Acid Calcium 7.2 L Ionized Calcium Phosphorus Magnesium 5.40 H AST 307 H ALT 137 H Alkaline Phosphatase Lactate Dehydrogenase NT-Pro-B Natriuret Pep Total Protein 4.5 L Albumin 2.6 L Arterial Blood Glucose Arterial Blood Ionized Calcium Urine WBC (Auto) Vancomycin Trough Phenytoin Crossmatch 10/06/20 10/06/20 10/06/20 11:00 11:50 20:13 WBC RBC Hgb Hct MCV MCH MCHC RDW Plt Count Lymph % (Auto) [place] % (Auto) Lymph # (Auto) [place] # (Auto) Baso # (Auto) Seg Neutrophils % Seg Neuts % (Manual) Lymphocytes % (Manual) Monocytes % (Manual) Nucleated RBC % Seg Neutrophils # Seg Neutrophils # Man Lymphocytes # (Manual) Monocytes # (Manual) PT INR APTT Fibrinogen D-Dimer ABG pH POC ABG pCO2 POC ABG pO2 ABG pO2 ABG HCO3 ABG Base Excess ABG Hemoglobin ABG Oxyhemoglobin ABG Sodium ABG Potassium ABG Chloride ABG Glucose VBG pH Oxyhemoglobin Carboxyhemoglobin Sodium Potassium Chloride Carbon Dioxide BUN Creatinine Glucose POC Glucose 106 H Lactic Acid Calcium Ionized Calcium Phosphorus Magnesium 6.50 H 6.20 H AST ALT Alkaline Phosphatase Lactate Dehydrogenase NT-Pro-B Natriuret Pep Total Protein Albumin Arterial Blood Glucose Arterial Blood Ionized Calcium Urine WBC (Auto) Vancomycin Trough Phenytoin Crossmatch 10/06/20 10/06/20 10/06/20 20:17 22:29 23:57 WBC RBC Hgb Hct MCV MCH MCHC RDW Plt Count Lymph % (Auto) [place] % (Auto) Lymph # (Auto) [place] # (Auto) Baso # (Auto) Seg Neutrophils % Seg Neuts % (Manual) Lymphocytes % (Manual) Monocytes % (Manual) Nucleated RBC % Seg Neutrophils # Seg Neutrophils # Man Lymphocytes # (Manual) Monocytes # (Manual) PT INR APTT Fibrinogen D-Dimer ABG pH POC ABG pCO2 POC ABG pO2 ABG pO2 ABG HCO3 ABG Base Excess ABG Hemoglobin ABG Oxyhemoglobin ABG Sodium ABG Potassium ABG Chloride ABG Glucose VBG pH Oxyhemoglobin Carboxyhemoglobin Sodium Potassium Chloride Carbon Dioxide BUN Creatinine Glucose POC Glucose 112 H 126 H 133 H Lactic Acid Calcium Ionized Calcium Phosphorus Magnesium AST ALT Alkaline Phosphatase Lactate Dehydrogenase NT-Pro-B Natriuret Pep Total Protein Albumin Arterial Blood Glucose Arterial Blood Ionized Calcium Urine WBC (Auto) Vancomycin Trough Phenytoin Crossmatch 10/07/20 10/07/20 10/07/20 00:35 02:22 03:16 WBC RBC Hgb Hct MCV MCH MCHC RDW Plt Count Lymph % (Auto) [place] % (Auto) Lymph # (Auto) [place] # (Auto) Baso # (Auto) Seg Neutrophils % Seg Neuts % (Manual) Lymphocytes % (Manual) Monocytes % (Manual) Nucleated RBC % Seg Neutrophils # Seg Neutrophils # Man Lymphocytes # (Manual) Monocytes # (Manual) PT INR APTT Fibrinogen D-Dimer ABG pH POC ABG pCO2 POC ABG pO2 ABG pO2 ABG HCO3 ABG Base Excess ABG Hemoglobin 11.6 L ABG Oxyhemoglobin ABG Sodium ABG Potassium ABG Chloride ABG Glucose 156 H VBG pH Oxyhemoglobin Carboxyhemoglobin 0.3 L Sodium Potassium Chloride Carbon Dioxide BUN Creatinine Glucose POC Glucose 124 H Lactic Acid Calcium Ionized Calcium Phosphorus Magnesium 5.90 H AST ALT Alkaline Phosphatase Lactate Dehydrogenase NT-Pro-B Natriuret Pep Total Protein Albumin Arterial Blood Glucose 156 H Arterial Blood Ionized Calcium 4.2 L Urine WBC (Auto) Vancomycin Trough Phenytoin Crossmatch 10/07/20 10/07/20 10/07/20 04:06 05:45 07:05 WBC 19.2 H RBC 3.57 L Hgb Hct MCV MCH MCHC 35 H RDW 17.1 H Plt Count 129 L Lymph % (Auto) [place] % (Auto) Lymph # (Auto) [place] # (Auto) Baso # (Auto) Seg Neutrophils % Seg Neuts % (Manual) 94.0 H Lymphocytes % (Manual) 6.0 L Monocytes % (Manual) Nucleated RBC % Seg Neutrophils # Seg Neutrophils # Man 18.0 H Lymphocytes # (Manual) Monocytes # (Manual) PT INR APTT Fibrinogen D-Dimer ABG pH POC ABG pCO2 POC ABG pO2 ABG pO2 ABG HCO3 ABG Base Excess ABG Hemoglobin ABG Oxyhemoglobin ABG Sodium ABG Potassium ABG Chloride ABG Glucose VBG pH Oxyhemoglobin Carboxyhemoglobin Sodium Potassium Chloride Carbon Dioxide BUN Creatinine Glucose POC Glucose 135 H 149 H Lactic Acid Calcium Ionized Calcium Phosphorus Magnesium AST ALT Alkaline Phosphatase Lactate Dehydrogenase NT-Pro-B Natriuret Pep Total Protein Albumin Arterial Blood Glucose Arterial Blood Ionized Calcium Urine WBC (Auto) Vancomycin Trough Phenytoin Crossmatch 10/07/20 10/07/20 10/07/20 07:05 07:05 12:21 WBC RBC Hgb Hct MCV MCH MCHC RDW Plt Count Lymph % (Auto) [place] % (Auto) Lymph # (Auto) [place] # (Auto) Baso # (Auto) Seg Neutrophils % Seg Neuts % (Manual) Lymphocytes % (Manual) Monocytes % (Manual) Nucleated RBC % Seg Neutrophils # Seg Neutrophils # Man Lymphocytes # (Manual) Monocytes # (Manual) PT INR APTT Fibrinogen D-Dimer ABG pH POC ABG pCO2 POC ABG pO2 ABG pO2 ABG HCO3 ABG Base Excess ABG Hemoglobin ABG Oxyhemoglobin ABG Sodium ABG Potassium ABG Chloride ABG Glucose VBG pH Oxyhemoglobin Carboxyhemoglobin Sodium Potassium Chloride Carbon Dioxide BUN 21 H Creatinine 1.7 H Glucose 171 H POC Glucose 124 H Lactic Acid Calcium 7.4 L Ionized Calcium Phosphorus Magnesium 6.10 H AST 245 H ALT 147 H Alkaline Phosphatase Lactate Dehydrogenase NT-Pro-B Natriuret Pep Total Protein 5.3 L Albumin 2.8 L Arterial Blood Glucose Arterial Blood Ionized Calcium Urine WBC (Auto) Vancomycin Trough Phenytoin Crossmatch 10/07/20 10/07/20 10/07/20 19:52 21:00 21:50 WBC RBC Hgb Hct MCV MCH MCHC RDW Plt Count Lymph % (Auto) [place] % (Auto) Lymph # (Auto) [place] # (Auto) Baso # (Auto) Seg Neutrophils % Seg Neuts % (Manual) Lymphocytes % (Manual) Monocytes % (Manual) Nucleated RBC % Seg Neutrophils # Seg Neutrophils # Man Lymphocytes # (Manual) Monocytes # (Manual) PT INR APTT Fibrinogen D-Dimer ABG pH POC ABG pCO2 POC ABG pO2 ABG pO2 ABG HCO3 ABG Base Excess ABG Hemoglobin ABG Oxyhemoglobin ABG Sodium ABG Potassium ABG Chloride ABG Glucose VBG pH Oxyhemoglobin Carboxyhemoglobin Sodium Potassium Chloride Carbon Dioxide BUN Creatinine Glucose POC Glucose 193 H 138 H Lactic Acid Calcium Ionized Calcium 4.4 L Phosphorus Magnesium AST ALT Alkaline Phosphatase Lactate Dehydrogenase NT-Pro-B Natriuret Pep Total Protein Albumin Arterial Blood Glucose Arterial Blood Ionized Calcium Urine WBC (Auto) Vancomycin Trough Phenytoin Crossmatch 10/07/20 10/08/20 10/08/20 23:41 04:20 05:30 WBC RBC Hgb Hct MCV MCH MCHC RDW Plt Count Lymph % (Auto) [place] % (Auto) Lymph # (Auto) [place] # (Auto) Baso # (Auto) Seg Neutrophils % Seg Neuts % (Manual) Lymphocytes % (Manual) Monocytes % (Manual) Nucleated RBC % Seg Neutrophils # Seg Neutrophils # Man Lymphocytes # (Manual) Monocytes # (Manual) PT INR APTT Fibrinogen D-Dimer ABG pH 7.467 H POC ABG pCO2 POC ABG pO2 189.8 H ABG pO2 ABG HCO3 ABG Base Excess ABG Hemoglobin 10.8 L ABG Oxyhemoglobin ABG Sodium ABG Potassium ABG Chloride ABG Glucose 133 H VBG pH Oxyhemoglobin Carboxyhemoglobin Sodium Potassium Chloride Carbon Dioxide BUN Creatinine Glucose POC Glucose 118 H 114 H Lactic Acid Calcium Ionized Calcium Phosphorus Magnesium AST ALT Alkaline Phosphatase Lactate Dehydrogenase NT-Pro-B Natriuret Pep Total Protein Albumin Arterial Blood Glucose 133 H Arterial Blood Ionized Calcium 4.2 L Urine WBC (Auto) Vancomycin Trough Phenytoin Crossmatch 10/08/20 10/08/20 10/08/20 05:43 06:42 06:42 WBC 23.6 H RBC 3.54 L Hgb Hct MCV MCH MCHC RDW 17.8 H Plt Count Lymph % (Auto) [place] % (Auto) Lymph # (Auto) [place] # (Auto) Baso # (Auto) Seg Neutrophils % Seg Neuts % (Manual) 93.0 H Lymphocytes % (Manual) 3.0 L Monocytes % (Manual) Nucleated RBC % 1.0 H Seg Neutrophils # Seg Neutrophils # Man 21.9 H Lymphocytes # (Manual) 0.7 L Monocytes # (Manual) 0.9 H PT INR APTT Fibrinogen D-Dimer ABG pH POC ABG pCO2 POC ABG pO2 ABG pO2 ABG HCO3 ABG Base Excess ABG Hemoglobin ABG Oxyhemoglobin ABG Sodium ABG Potassium ABG Chloride ABG Glucose VBG pH Oxyhemoglobin Carboxyhemoglobin Sodium Potassium Chloride Carbon Dioxide BUN 28 H Creatinine 1.6 H Glucose 141 H POC Glucose 126 H Lactic Acid Calcium 7.6 L Ionized Calcium Phosphorus Magnesium AST 162 H ALT 103 H Alkaline Phosphatase Lactate Dehydrogenase NT-Pro-B Natriuret Pep Total Protein 5.4 L Albumin 2.7 L Arterial Blood Glucose Arterial Blood Ionized Calcium Urine WBC (Auto) Vancomycin Trough Phenytoin Crossmatch 10/08/20 10/08/20 10/08/20 11:20 16:05 20:14 WBC RBC Hgb Hct MCV MCH MCHC RDW Plt Count Lymph % (Auto) [place] % (Auto) Lymph # (Auto) [place] # (Auto) Baso # (Auto) Seg Neutrophils % Seg Neuts % (Manual) Lymphocytes % (Manual) Monocytes % (Manual) Nucleated RBC % Seg Neutrophils # Seg Neutrophils # Man Lymphocytes # (Manual) Monocytes # (Manual) PT INR APTT Fibrinogen D-Dimer ABG pH POC ABG pCO2 POC ABG pO2 ABG pO2 ABG HCO3 ABG Base Excess ABG Hemoglobin ABG Oxyhemoglobin ABG Sodium ABG Potassium ABG Chloride ABG Glucose VBG pH Oxyhemoglobin Carboxyhemoglobin Sodium Potassium Chloride Carbon Dioxide BUN Creatinine Glucose POC Glucose 127 H 172 H 147 H Lactic Acid Calcium Ionized Calcium Phosphorus Magnesium AST ALT Alkaline Phosphatase Lactate Dehydrogenase NT-Pro-B Natriuret Pep Total Protein Albumin Arterial Blood Glucose Arterial Blood Ionized Calcium Urine WBC (Auto) Vancomycin Trough Phenytoin Crossmatch 10/08/20 10/08/20 10/09/20 21:27 23:24 02:10 WBC RBC Hgb Hct MCV MCH MCHC RDW Plt Count Lymph % (Auto) [place] % (Auto) Lymph # (Auto) [place] # (Auto) Baso # (Auto) Seg Neutrophils % Seg Neuts % (Manual) Lymphocytes % (Manual) Monocytes % (Manual) Nucleated RBC % Seg Neutrophils # Seg Neutrophils # Man Lymphocytes # (Manual) Monocytes # (Manual) PT INR APTT Fibrinogen D-Dimer ABG pH POC ABG pCO2 POC ABG pO2 ABG pO2 ABG HCO3 ABG Base Excess ABG Hemoglobin ABG Oxyhemoglobin ABG Sodium ABG Potassium ABG Chloride ABG Glucose VBG pH Oxyhemoglobin Carboxyhemoglobin Sodium Potassium Chloride Carbon Dioxide BUN Creatinine Glucose POC Glucose 140 H 135 H 111 H Lactic Acid Calcium Ionized Calcium Phosphorus Magnesium AST ALT Alkaline Phosphatase Lactate Dehydrogenase NT-Pro-B Natriuret Pep Total Protein Albumin Arterial Blood Glucose Arterial Blood Ionized Calcium Urine WBC (Auto) Vancomycin Trough Phenytoin Crossmatch 10/09/20 10/09/20 10/09/20 03:44 04:39 05:46 WBC 19.7 H RBC 3.51 L Hgb Hct MCV MCH MCHC RDW 17.7 H Plt Count Lymph % (Auto) [place] % (Auto) Lymph # (Auto) [place] # (Auto) Baso # (Auto) Seg Neutrophils % Seg Neuts % (Manual) 86.0 H Lymphocytes % (Manual) 4.0 L Monocytes % (Manual) 9.0 H Nucleated RBC % Seg Neutrophils # Seg Neutrophils # Man 16.9 H Lymphocytes # (Manual) 0.8 L Monocytes # (Manual) 1.8 H PT INR APTT Fibrinogen D-Dimer ABG pH 7.513 H POC ABG pCO2 POC ABG pO2 33.6 L ABG pO2 ABG HCO3 ABG Base Excess ABG Hemoglobin 11.1 L ABG Oxyhemoglobin 70.2 L ABG Sodium ABG Potassium 3.2 L ABG Chloride 108.0 H ABG Glucose 108 H VBG pH Oxyhemoglobin Carboxyhemoglobin Sodium Potassium Chloride Carbon Dioxide BUN Creatinine Glucose POC Glucose 109 H Lactic Acid Calcium Ionized Calcium Phosphorus Magnesium AST ALT Alkaline Phosphatase Lactate Dehydrogenase NT-Pro-B Natriuret Pep Total Protein Albumin Arterial Blood Glucose 108 H Arterial Blood Ionized Calcium 4.3 L Urine WBC (Auto) Vancomycin Trough Phenytoin Crossmatch 10/09/20 10/10/20 10/10/20 05:46 04:00 04:00 WBC 18.4 H RBC Hgb Hct MCV MCH MCHC RDW 17.5 H Plt Count Lymph % (Auto) 9.8 L [place] % (Auto) 8.8 H Lymph # (Auto) [place] # (Auto) 1.6 H Baso # (Auto) Seg Neutrophils % 80.0 H Seg Neuts % (Manual) Lymphocytes % (Manual) Monocytes % (Manual) Nucleated RBC % Seg Neutrophils # 14.7 H Seg Neutrophils # Man Lymphocytes # (Manual) Monocytes # (Manual) PT INR APTT Fibrinogen D-Dimer ABG pH POC ABG pCO2 POC ABG pO2 ABG pO2 ABG HCO3 ABG Base Excess ABG Hemoglobin ABG Oxyhemoglobin ABG Sodium ABG Potassium ABG Chloride ABG Glucose VBG pH Oxyhemoglobin Carboxyhemoglobin Sodium 146 H Potassium 3.2 L 2.9 L* Chloride 108.9 H 112.6 H Carbon Dioxide BUN 34 H 28 H Creatinine 1.4 H 1.3 H Glucose 109 H 101 H POC Glucose Lactic Acid Calcium 7.6 L 7.8 L Ionized Calcium Phosphorus Magnesium AST 137 H 122 H ALT 99 H 81 H Alkaline Phosphatase Lactate Dehydrogenase NT-Pro-B Natriuret Pep Total Protein 5.1 L 5.2 L Albumin 2.6 L 2.7 L Arterial Blood Glucose Arterial Blood Ionized Calcium Urine WBC (Auto) Vancomycin Trough Phenytoin Crossmatch 10/10/20 10/10/20 10/11/20 04:42 09:50 00:44 WBC RBC Hgb Hct MCV MCH MCHC RDW Plt Count Lymph % (Auto) [place] % (Auto) Lymph # (Auto) [place] # (Auto) Baso # (Auto) Seg Neutrophils % Seg Neuts % (Manual) Lymphocytes % (Manual) Monocytes % (Manual) Nucleated RBC % Seg Neutrophils # Seg Neutrophils # Man Lymphocytes # (Manual) Monocytes # (Manual) PT INR APTT Fibrinogen D-Dimer ABG pH 7.534 H POC ABG pCO2 POC ABG pO2 ABG pO2 95.2 H ABG HCO3 ABG Base Excess ABG Hemoglobin 11.3 L ABG Oxyhemoglobin ABG Sodium ABG Potassium ABG Chloride ABG Glucose VBG pH Oxyhemoglobin Carboxyhemoglobin Sodium Potassium Chloride Carbon Dioxide BUN Creatinine Glucose POC Glucose 109 H 106 H Lactic Acid Calcium Ionized Calcium Phosphorus Magnesium AST ALT Alkaline Phosphatase Lactate Dehydrogenase NT-Pro-B Natriuret Pep Total Protein Albumin Arterial Blood Glucose Arterial Blood Ionized Calcium Urine WBC (Auto) Vancomycin Trough Phenytoin Crossmatch 10/11/20 10/11/20 10/11/20 04:00 04:00 06:08 WBC 27.0 H RBC Hgb Hct MCV MCH MCHC RDW 17.7 H Plt Count Lymph % (Auto) 6.3 L [place] % (Auto) Lymph # (Auto) [place] # (Auto) 1.5 H Baso # (Auto) Seg Neutrophils % 87.1 H Seg Neuts % (Manual) Lymphocytes % (Manual) Monocytes % (Manual) Nucleated RBC % Seg Neutrophils # 23.5 H Seg Neutrophils # Man Lymphocytes # (Manual) Monocytes # (Manual) PT INR APTT Fibrinogen D-Dimer ABG pH POC ABG pCO2 POC ABG pO2 ABG pO2 ABG HCO3 ABG Base Excess ABG Hemoglobin ABG Oxyhemoglobin ABG Sodium ABG Potassium ABG Chloride ABG Glucose VBG pH Oxyhemoglobin Carboxyhemoglobin Sodium Potassium 3.2 L Chloride 110.4 H Carbon Dioxide 19 L BUN 22 H Creatinine Glucose 116 H POC Glucose 107 H Lactic Acid Calcium 7.7 L Ionized Calcium Phosphorus Magnesium 1.60 L AST ALT Alkaline Phosphatase Lactate Dehydrogenase NT-Pro-B Natriuret Pep Total Protein Albumin Arterial Blood Glucose Arterial Blood Ionized Calcium Urine WBC (Auto) Vancomycin Trough Phenytoin Crossmatch 10/11/20 10/11/20 10/12/20 11:41 13:26 03:52 WBC RBC Hgb Hct MCV MCH MCHC RDW Plt Count Lymph % (Auto) [place] % (Auto) Lymph # (Auto) [place] # (Auto) Baso # (Auto) Seg Neutrophils % Seg Neuts % (Manual) Lymphocytes % (Manual) Monocytes % (Manual) Nucleated RBC % Seg Neutrophils # Seg Neutrophils # Man Lymphocytes # (Manual) Monocytes # (Manual) PT INR APTT Fibrinogen D-Dimer ABG pH POC ABG pCO2 POC ABG pO2 ABG pO2 ABG HCO3 ABG Base Excess ABG Hemoglobin ABG Oxyhemoglobin ABG Sodium ABG Potassium ABG Chloride ABG Glucose VBG pH Oxyhemoglobin Carboxyhemoglobin Sodium Potassium Chloride Carbon Dioxide BUN Creatinine Glucose POC Glucose 116 H 114 H Lactic Acid Calcium Ionized Calcium Phosphorus Magnesium AST ALT Alkaline Phosphatase Lactate Dehydrogenase NT-Pro-B Natriuret Pep Total Protein Albumin Arterial Blood Glucose Arterial Blood Ionized Calcium Urine WBC (Auto) 24.0 H Vancomycin Trough Phenytoin Crossmatch 10/12/20 10/12/20 10/12/20 04:24 14:47 21:33 WBC RBC Hgb Hct MCV MCH MCHC RDW Plt Count Lymph % (Auto) [place] % (Auto) Lymph # (Auto) [place] # (Auto) Baso # (Auto) Seg Neutrophils % Seg Neuts % (Manual) Lymphocytes % (Manual) Monocytes % (Manual) Nucleated RBC % Seg Neutrophils # Seg Neutrophils # Man Lymphocytes # (Manual) Monocytes # (Manual) PT INR APTT Fibrinogen D-Dimer ABG pH POC ABG pCO2 POC ABG pO2 ABG pO2 ABG HCO3 ABG Base Excess ABG Hemoglobin ABG Oxyhemoglobin ABG Sodium ABG Potassium ABG Chloride ABG Glucose VBG pH Oxyhemoglobin Carboxyhemoglobin Sodium Potassium Chloride 109.9 H Carbon Dioxide 13 L BUN 18 H Creatinine Glucose 119 H POC Glucose 107 H Lactic Acid Calcium 7.6 L Ionized Calcium Phosphorus Magnesium 1.60 L AST ALT Alkaline Phosphatase Lactate Dehydrogenase NT-Pro-B Natriuret Pep Total Protein Albumin Arterial Blood Glucose Arterial Blood Ionized Calcium Urine WBC (Auto) Vancomycin Trough Phenytoin Crossmatch 10/12/20 10/12/20 10/13/20 Unknown Unknown 07:00 WBC 24.3 H RBC 3.38 L Hgb 9.8 L Hct MCV MCH MCHC RDW 18.7 H Plt Count Lymph % (Auto) [place] % (Auto) Lymph # (Auto) [place] # (Auto) Baso # (Auto) Seg Neutrophils % Seg Neuts % (Manual) 93.5 H Lymphocytes % (Manual) 4.5 L Monocytes % (Manual) Nucleated RBC % Seg Neutrophils # Seg Neutrophils # Man 22.7 H Lymphocytes # (Manual) 1.1 L Monocytes # (Manual) PT INR APTT Fibrinogen D-Dimer ABG pH POC ABG pCO2 POC ABG pO2 ABG pO2 ABG HCO3 ABG Base Excess ABG Hemoglobin ABG Oxyhemoglobin ABG Sodium ABG Potassium ABG Chloride ABG Glucose VBG pH Oxyhemoglobin Carboxyhemoglobin Sodium 135 L D Potassium 3.1 L Chloride Carbon Dioxide 17 L BUN Creatinine Glucose 510 H* POC Glucose Lactic Acid Calcium 7.2 L Ionized Calcium Phosphorus Magnesium AST ALT Alkaline Phosphatase Lactate Dehydrogenase NT-Pro-B Natriuret Pep Total Protein Albumin Arterial Blood Glucose Arterial Blood Ionized Calcium Urine WBC (Auto) Vancomycin Trough Phenytoin 5.7 L Crossmatch 10/13/20 10/13/20 10/13/20 07:00 07:00 07:18 WBC 23.6 H RBC 3.26 L Hgb 9.4 L Hct 28.7 L MCV MCH MCHC RDW 18.3 H Plt Count Lymph % (Auto) [place] % (Auto) Lymph # (Auto) [place] # (Auto) Baso # (Auto) Seg Neutrophils % Seg Neuts % (Manual) Lymphocytes % (Manual) Monocytes % (Manual) Nucleated RBC % Seg Neutrophils # Seg Neutrophils # Man Lymphocytes # (Manual) Monocytes # (Manual) PT INR APTT Fibrinogen D-Dimer ABG pH 7.473 H POC ABG pCO2 20.7 L POC ABG pO2 137.9 H ABG pO2 ABG HCO3 ABG Base Excess ABG Hemoglobin 11.2 L ABG Oxyhemoglobin 98.3 H ABG Sodium 135.9 L ABG Potassium ABG Chloride 111.0 H ABG Glucose 109 H VBG pH Oxyhemoglobin Carboxyhemoglobin 0.3 L Sodium 135 L Potassium 3.5 L Chloride 109.1 H Carbon Dioxide 18 L BUN Creatinine Glucose POC Glucose Lactic Acid Calcium 7.3 L Ionized Calcium Phosphorus Magnesium 1.60 L AST ALT Alkaline Phosphatase Lactate Dehydrogenase NT-Pro-B Natriuret Pep Total Protein Albumin Arterial Blood Glucose 109 H Arterial Blood Ionized Calcium Urine WBC (Auto) Vancomycin Trough Phenytoin Crossmatch 10/14/20 10/14/20 10/15/20 04:00 04:00 05:50 WBC 28.6 H 23.2 H RBC 3.61 L 3.43 L Hgb 9.9 L Hct 30.0 L MCV MCH MCHC RDW 18.3 H 18.2 H Plt Count Lymph % (Auto) [place] % (Auto) Lymph # (Auto) [place] # (Auto) Baso # (Auto) Seg Neutrophils % Seg Neuts % (Manual) 88.0 H 90.0 H Lymphocytes % (Manual) 5.0 L 4.0 L Monocytes % (Manual) Nucleated RBC % Seg Neutrophils # Seg Neutrophils # Man 25.2 H 20.9 H Lymphocytes # (Manual) 0.9 L Monocytes # (Manual) 1.4 H 0.9 H PT INR APTT Fibrinogen D-Dimer ABG pH POC ABG pCO2 POC ABG pO2 ABG pO2 ABG HCO3 ABG Base Excess ABG Hemoglobin ABG Oxyhemoglobin ABG Sodium ABG Potassium ABG Chloride ABG Glucose VBG pH Oxyhemoglobin Carboxyhemoglobin Sodium Potassium Chloride 109.9 H Carbon Dioxide 17 L BUN Creatinine Glucose POC Glucose Lactic Acid Calcium Ionized Calcium Phosphorus Magnesium AST ALT Alkaline Phosphatase Lactate Dehydrogenase NT-Pro-B Natriuret Pep Total Protein Albumin Arterial Blood Glucose Arterial Blood Ionized Calcium Urine WBC (Auto) Vancomycin Trough Phenytoin Crossmatch 10/15/20 10/16/20 10/17/20 05:50 11:57 04:57 WBC 15.2 H RBC 3.43 L Hgb Hct MCV MCH MCHC RDW 18.1 H Plt Count Lymph % (Auto) [place] % (Auto) Lymph # (Auto) [place] # (Auto) Baso # (Auto) Seg Neutrophils % Seg Neuts % (Manual) Lymphocytes % (Manual) Monocytes % (Manual) Nucleated RBC % Seg Neutrophils # Seg Neutrophils # Man Lymphocytes # (Manual) Monocytes # (Manual) PT INR APTT Fibrinogen D-Dimer ABG pH POC ABG pCO2 POC ABG pO2 ABG pO2 ABG HCO3 ABG Base Excess ABG Hemoglobin ABG Oxyhemoglobin ABG Sodium ABG Potassium ABG Chloride ABG Glucose VBG pH Oxyhemoglobin Carboxyhemoglobin Sodium Potassium Chloride 110.3 H Carbon Dioxide 18 L BUN Creatinine Glucose 105 H POC Glucose 111 H Lactic Acid Calcium 8.3 L Ionized Calcium Phosphorus Magnesium AST ALT Alkaline Phosphatase Lactate Dehydrogenase NT-Pro-B Natriuret Pep Total Protein Albumin Arterial Blood Glucose Arterial Blood Ionized Calcium Urine WBC (Auto) Vancomycin Trough Phenytoin Crossmatch 10/17/20 10/17/20 10/18/20 05:25 21:16 01:31 WBC RBC Hgb Hct MCV MCH MCHC RDW Plt Count Lymph % (Auto) [place] % (Auto) Lymph # (Auto) [place] # (Auto) Baso # (Auto) Seg Neutrophils % Seg Neuts % (Manual) Lymphocytes % (Manual) Monocytes % (Manual) Nucleated RBC % Seg Neutrophils # Seg Neutrophils # Man Lymphocytes # (Manual) Monocytes # (Manual) PT INR APTT Fibrinogen D-Dimer ABG pH POC ABG pCO2 POC ABG pO2 ABG pO2 ABG HCO3 ABG Base Excess ABG Hemoglobin ABG Oxyhemoglobin ABG Sodium ABG Potassium ABG Chloride ABG Glucose VBG pH Oxyhemoglobin Carboxyhemoglobin Sodium Potassium Chloride Carbon Dioxide BUN Creatinine Glucose POC Glucose 107 H 106 H 119 H Lactic Acid Calcium Ionized Calcium Phosphorus Magnesium AST ALT Alkaline Phosphatase Lactate Dehydrogenase NT-Pro-B Natriuret Pep Total Protein Albumin Arterial Blood Glucose Arterial Blood Ionized Calcium Urine WBC (Auto) Vancomycin Trough Phenytoin Crossmatch 10/18/20 10/18/20 10/19/20 05:45 11:23 01:14 WBC RBC Hgb Hct MCV MCH MCHC RDW Plt Count Lymph % (Auto) [place] % (Auto) Lymph # (Auto) [place] # (Auto) Baso # (Auto) Seg Neutrophils % Seg Neuts % (Manual) Lymphocytes % (Manual) Monocytes % (Manual) Nucleated RBC % Seg Neutrophils # Seg Neutrophils # Man Lymphocytes # (Manual) Monocytes # (Manual) PT INR APTT Fibrinogen D-Dimer ABG pH POC ABG pCO2 POC ABG pO2 ABG pO2 ABG HCO3 ABG Base Excess ABG Hemoglobin ABG Oxyhemoglobin ABG Sodium ABG Potassium ABG Chloride ABG Glucose VBG pH Oxyhemoglobin Carboxyhemoglobin Sodium Potassium Chloride Carbon Dioxide BUN Creatinine Glucose POC Glucose 106 H 115 H 108 H Lactic Acid Calcium Ionized Calcium Phosphorus Magnesium AST ALT Alkaline Phosphatase Lactate Dehydrogenase NT-Pro-B Natriuret Pep Total Protein Albumin Arterial Blood Glucose Arterial Blood Ionized Calcium Urine WBC (Auto) Vancomycin Trough Phenytoin Crossmatch 10/19/20 10/20/20 10/20/20 09:57 05:40 07:59 WBC RBC Hgb Hct MCV MCH MCHC RDW Plt Count Lymph % (Auto) [place] % (Auto) Lymph # (Auto) [place] # (Auto) Baso # (Auto) Seg Neutrophils % Seg Neuts % (Manual) Lymphocytes % (Manual) Monocytes % (Manual) Nucleated RBC % Seg Neutrophils # Seg Neutrophils # Man Lymphocytes # (Manual) Monocytes # (Manual) PT INR APTT Fibrinogen D-Dimer ABG pH POC ABG pCO2 POC ABG pO2 ABG pO2 ABG HCO3 ABG Base Excess ABG Hemoglobin ABG Oxyhemoglobin ABG Sodium ABG Potassium ABG Chloride ABG Glucose VBG pH Oxyhemoglobin Carboxyhemoglobin Sodium Potassium Chloride Carbon Dioxide BUN Creatinine Glucose 106 H POC Glucose 122 H 109 H Lactic Acid Calcium Ionized Calcium Phosphorus Magnesium AST ALT Alkaline Phosphatase Lactate Dehydrogenase NT-Pro-B Natriuret Pep Total Protein Albumin Arterial Blood Glucose Arterial Blood Ionized Calcium Urine WBC (Auto) Vancomycin Trough Phenytoin Crossmatch 10/20/20 10/20/20 10/21/20 16:52 16:52 13:54 WBC 18.8 H 17.0 H RBC Hgb Hct MCV MCH MCHC RDW 17.7 H 17.8 H Plt Count 547 H 544 H Lymph % (Auto) 11.2 L [place] % (Auto) 8.1 H Lymph # (Auto) [place] # (Auto) 1.5 H Baso # (Auto) 0.2 H Seg Neutrophils % 78.8 H Seg Neuts % (Manual) Lymphocytes % (Manual) Monocytes % (Manual) Nucleated RBC % Seg Neutrophils # 14.8 H Seg Neutrophils # Man Lymphocytes # (Manual) Monocytes # (Manual) PT INR APTT Fibrinogen D-Dimer ABG pH POC ABG pCO2 POC ABG pO2 ABG pO2 ABG HCO3 ABG Base Excess ABG Hemoglobin ABG Oxyhemoglobin ABG Sodium ABG Potassium ABG Chloride ABG Glucose VBG pH Oxyhemoglobin Carboxyhemoglobin Sodium Potassium Chloride Carbon Dioxide BUN Creatinine Glucose POC Glucose Lactic Acid Calcium Ionized Calcium Phosphorus Magnesium AST ALT Alkaline Phosphatase Lactate Dehydrogenase NT-Pro-B Natriuret Pep Total Protein Albumin Arterial Blood Glucose Arterial Blood Ionized Calcium Urine WBC (Auto) Vancomycin Trough 34.5 H Phenytoin Crossmatch 10/21/20 10/22/20 10/23/20 13:54 07:26 05:34 WBC 18.7 H 13.0 H RBC 3.64 L 3.50 L Hgb Hct 30.0 L MCV MCH MCHC 35 H RDW 17.7 H 17.6 H Plt Count 502 H 503 H Lymph % (Auto) [place] % (Auto) Lymph # (Auto) [place] # (Auto) Baso # (Auto) Seg Neutrophils % Seg Neuts % (Manual) Lymphocytes % (Manual) Monocytes % (Manual) Nucleated RBC % Seg Neutrophils # Seg Neutrophils # Man Lymphocytes # (Manual) Monocytes # (Manual) PT INR APTT Fibrinogen D-Dimer ABG pH POC ABG pCO2 POC ABG pO2 ABG pO2 ABG HCO3 ABG Base Excess ABG Hemoglobin ABG Oxyhemoglobin ABG Sodium ABG Potassium ABG Chloride ABG Glucose VBG pH Oxyhemoglobin Carboxyhemoglobin Sodium 136 L Potassium Chloride Carbon Dioxide BUN Creatinine Glucose 120 H POC Glucose Lactic Acid Calcium Ionized Calcium Phosphorus Magnesium AST ALT Alkaline Phosphatase Lactate Dehydrogenase NT-Pro-B Natriuret Pep Total Protein Albumin Arterial Blood Glucose Arterial Blood Ionized Calcium Urine WBC (Auto) Vancomycin Trough Phenytoin Crossmatch 10/23/20 10/26/20 10/27/20 05:34 10:30 07:53 WBC 13.6 H RBC 3.38 L Hgb 10.0 L Hct 28.8 L MCV MCH MCHC 35 H RDW 17.6 H Plt Count Lymph % (Auto) [place] % (Auto) Lymph # (Auto) [place] # (Auto) Baso # (Auto) Seg Neutrophils % Seg Neuts % (Manual) Lymphocytes % (Manual) Monocytes % (Manual) Nucleated RBC % Seg Neutrophils # Seg Neutrophils # Man Lymphocytes # (Manual) Monocytes # (Manual) PT INR APTT Fibrinogen D-Dimer ABG pH 7.459 H POC ABG pCO2 POC ABG pO2 ABG pO2 112.2 H ABG HCO3 ABG Base Excess ABG Hemoglobin ABG Oxyhemoglobin ABG Sodium ABG Potassium ABG Chloride ABG Glucose VBG pH Oxyhemoglobin Carboxyhemoglobin Sodium 135 L Potassium Chloride Carbon Dioxide BUN Creatinine Glucose 105 H POC Glucose Lactic Acid Calcium Ionized Calcium Phosphorus Magnesium AST ALT Alkaline Phosphatase Lactate Dehydrogenase NT-Pro-B Natriuret Pep Total Protein Albumin Arterial Blood Glucose Arterial Blood Ionized Calcium Urine WBC (Auto) Vancomycin Trough Phenytoin Crossmatch 10/27/20 10/27/20 10/28/20 07:53 11:31 05:19 WBC RBC Hgb Hct MCV MCH MCHC RDW Plt Count Lymph % (Auto) [place] % (Auto) Lymph # (Auto) [place] # (Auto) Baso # (Auto) Seg Neutrophils % Seg Neuts % (Manual) Lymphocytes % (Manual) Monocytes % (Manual) Nucleated RBC % Seg Neutrophils # Seg Neutrophils # Man Lymphocytes # (Manual) Monocytes # (Manual) PT INR APTT Fibrinogen D-Dimer ABG pH POC ABG pCO2 POC ABG pO2 ABG pO2 ABG HCO3 ABG Base Excess ABG Hemoglobin ABG Oxyhemoglobin ABG Sodium ABG Potassium ABG Chloride ABG Glucose VBG pH Oxyhemoglobin Carboxyhemoglobin Sodium Potassium Chloride Carbon Dioxide BUN 20 H Creatinine Glucose 112 H POC Glucose 113 H 112 H Lactic Acid Calcium Ionized Calcium Phosphorus Magnesium AST 83 H ALT Alkaline Phosphatase Lactate Dehydrogenase NT-Pro-B Natriuret Pep Total Protein Albumin 3.8 L Arterial Blood Glucose Arterial Blood Ionized Calcium Urine WBC (Auto) Vancomycin Trough Phenytoin Crossmatch 10/29/20 10/29/20 10/29/20 07:56 07:56 11:37 WBC 13.6 H RBC Hgb Hct MCV MCH MCHC RDW 17.0 H Plt Count Lymph % (Auto) [place] % (Auto) Lymph # (Auto) [place] # (Auto) Baso # (Auto) Seg Neutrophils % Seg Neuts % (Manual) 80.0 H Lymphocytes % (Manual) Monocytes % (Manual) Nucleated RBC % Seg Neutrophils # Seg Neutrophils # Man 10.9 H Lymphocytes # (Manual) Monocytes # (Manual) PT INR APTT Fibrinogen D-Dimer ABG pH POC ABG pCO2 POC ABG pO2 ABG pO2 ABG HCO3 ABG Base Excess ABG Hemoglobin ABG Oxyhemoglobin ABG Sodium ABG Potassium ABG Chloride ABG Glucose VBG pH Oxyhemoglobin Carboxyhemoglobin Sodium Potassium Chloride Carbon Dioxide BUN Creatinine Glucose POC Glucose 108 H Lactic Acid Calcium Ionized Calcium Phosphorus 4.70 H Magnesium AST ALT Alkaline Phosphatase Lactate Dehydrogenase NT-Pro-B Natriuret Pep Total Protein Albumin Arterial Blood Glucose Arterial Blood Ionized Calcium Urine WBC (Auto) Vancomycin Trough Phenytoin Crossmatch 10/29/20 10/30/20 10/30/20 13:32 12:11 17:19 WBC RBC Hgb Hct MCV MCH MCHC RDW Plt Count Lymph % (Auto) [place] % (Auto) Lymph # (Auto) [place] # (Auto) Baso # (Auto) Seg Neutrophils % Seg Neuts % (Manual) Lymphocytes % (Manual) Monocytes % (Manual) Nucleated RBC % Seg Neutrophils # Seg Neutrophils # Man Lymphocytes # (Manual) Monocytes # (Manual) PT INR APTT Fibrinogen D-Dimer ABG pH POC ABG pCO2 POC ABG pO2 ABG pO2 ABG HCO3 ABG Base Excess ABG Hemoglobin ABG Oxyhemoglobin ABG Sodium ABG Potassium ABG Chloride ABG Glucose VBG pH Oxyhemoglobin Carboxyhemoglobin Sodium Potassium Chloride Carbon Dioxide BUN Creatinine Glucose POC Glucose 108 H 106 H 107 H Lactic Acid Calcium Ionized Calcium Phosphorus Magnesium AST ALT Alkaline Phosphatase Lactate Dehydrogenase NT-Pro-B Natriuret Pep Total Protein Albumin Arterial Blood Glucose Arterial Blood Ionized Calcium Urine WBC (Auto) Vancomycin Trough Phenytoin Crossmatch 10/31/20 10/31/20 11/01/20 03:20 05:43 04:55 WBC RBC Hgb Hct MCV MCH MCHC RDW Plt Count Lymph % (Auto) [place] % (Auto) Lymph # (Auto) [place] # (Auto) Baso # (Auto) Seg Neutrophils % Seg Neuts % (Manual) Lymphocytes % (Manual) Monocytes % (Manual) Nucleated RBC % Seg Neutrophils # Seg Neutrophils # Man Lymphocytes # (Manual) Monocytes # (Manual) PT INR APTT Fibrinogen D-Dimer ABG pH POC ABG pCO2 POC ABG pO2 ABG pO2 ABG HCO3 ABG Base Excess ABG Hemoglobin ABG Oxyhemoglobin ABG Sodium ABG Potassium ABG Chloride ABG Glucose VBG pH Oxyhemoglobin Carboxyhemoglobin Sodium Potassium Chloride Carbon Dioxide BUN Creatinine Glucose POC Glucose 108 H 115 H 108 H Lactic Acid Calcium Ionized Calcium Phosphorus Magnesium AST ALT Alkaline Phosphatase Lactate Dehydrogenase NT-Pro-B Natriuret Pep Total Protein Albumin Arterial Blood Glucose Arterial Blood Ionized Calcium Urine WBC (Auto) Vancomycin Trough Phenytoin Crossmatch 11/01/20 11/01/20 11/01/20 05:01 16:47 21:36 WBC RBC Hgb Hct MCV MCH MCHC RDW Plt Count Lymph % (Auto) [place] % (Auto) Lymph # (Auto) [place] # (Auto) Baso # (Auto) Seg Neutrophils % Seg Neuts % (Manual) Lymphocytes % (Manual) Monocytes % (Manual) Nucleated RBC % Seg Neutrophils # Seg Neutrophils # Man Lymphocytes # (Manual) Monocytes # (Manual) PT INR APTT Fibrinogen D-Dimer ABG pH POC ABG pCO2 POC ABG pO2 ABG pO2 ABG HCO3 ABG Base Excess ABG Hemoglobin ABG Oxyhemoglobin ABG Sodium ABG Potassium ABG Chloride ABG Glucose VBG pH Oxyhemoglobin Carboxyhemoglobin Sodium 135 L Potassium Chloride Carbon Dioxide BUN Creatinine Glucose POC Glucose 116 H 112 H Lactic Acid Calcium Ionized Calcium Phosphorus Magnesium AST 93 H ALT Alkaline Phosphatase 132 H Lactate Dehydrogenase NT-Pro-B Natriuret Pep Total Protein Albumin 3.6 L Arterial Blood Glucose Arterial Blood Ionized Calcium Urine WBC (Auto) Vancomycin Trough Phenytoin Crossmatch
[2020-11-02] MEDS: TOPIRAMATE TAB 25 MG TAB PO SCH ×2 (17:32→22:21)
[2020-11-03] MEDS: hydrALAZINE 25 MG TAB PO SCH ×3 (05:33→23:42)
[2020-11-03] MEDS: SODIUM BICARBONATE 650 MG TAB PO SCH ×2 (07:35→16:53)
[2020-11-03] MEDS: DEXTROSE 10% IN WATER 1,000 ML IV SCH ×2 (08:49→23:41)
[2020-11-03] MEDS: FUROSEMIDE 40 MG TAB PO SCH (09:06)
[2020-11-03] MEDS: ENOXAPARIN 40 MG/0.4 ML INJ SUB-Q SCH (09:06)
[2020-11-03] MEDS: FAMOTIDINE 20 MG TAB PO SCH ×2 (09:07→23:43)
[2020-11-03] MEDS: ACETAMINOPHEN 325 MG/10.15 ML ORAL LIQD UNIT DOSE FEEDTUBE PRN ×2 (09:08→23:41)
--- NOTE | 2020-11-03 09:29 | Progress Note ---
Assessment and Plan Assessment and plan: COVID-19 negative C. difficile positive; Patient in contact isolation --Febrile; T-max 102.4 F-100.2 today Blood, urine, tracheal aspirate cultures Antipyretics, reconsult ID if needed --Acute hypoxic respiratory failure: Tracheostomy on T-piece , 5 L oxygen, saturating 100% Nebulizers, continue oxygen titrate O2 sats to more than 90% Pulmonary critical following --Sepsis; received antibiotics Continue to monitor off antibiotics ID following --Cardiac arrest; 10/07/2020 ,status post CPR --COVID-19 test negative; 10/08/2020 --C. difficile colitis test; positive; 10/16/2020 --Acute metabolic encephalopathy --Acute hypoxic brain injury; Supportive care, closely monitor --Acute kidney injury; vasomotor nephropathy Resolved, renal function within normal limits, closely monitor --Shock; septic versus cardiogenic Requiring vasopressors, stable --DIC; sepsis, septic shock, resolved --History of preeclampsia; / hemorrhage Status post hysterectomy --History of C. difficile colitis; completed oral vancomycin --DVT/SVT and right upper extremity Very poor prognosis, Consults recommendations noted and appreciated We will closely monitor the patient and adjust management as needed Plan of care reviewed with the patient's nurse. Brief history; 30 year old -Russian female CHE 10/25/20 at 36w5d who presents with seizures in triage on 10/02/20. Pt was not able to provide history but per pt's , she presented to the hospital to return a 24 hour urine specimen for analysis. She then suddenly reported that she did not feel good. She was taken to labor and delivery and shortly after arrival, she began seizing. During this time, a code met was called because the patient became hypoxic. She was then noted to be without a pulse. Chest compressions were started immediately, and the patient was emergently taken to the operating room for delivery of the fetus. Off note, This patient has had care at [facility] with comanagement by [facility] since 11 wks complicated by ADHD, morbid obesity, generalized anxiety disorder, panic attacks, chronic narcotic use, fibromyalgia, GERD, Irritable Bowel Syndrome, Migraines, h/o endometrial ablation and ovarian vein embolization, genital herpes, insomnia, LGA fetus, nausea and vomiting, polyhydramnios, quad screen positive for Down's Syndrome, and previous x 3. She is GBS negative. , Patient tracheostomy on ventilatory support, unable to wean, continue supportive care poor prognosis 11:30: Pt brought to L&D triage for evaluation of possible labor. Pt accompanied by her spouse. Pt spouse poor historian; unable to obtain history- allergies at this time. Pt taken from registration to triage area via WC. Pt unresponsive, actively seizing with snorous respirations. painter shipyardKassy, called and requesting assistance. 11:35: Multiple staff at bedside. Pt 02 sat 67% on nonrebreather, unable to read BP . Yifan Theodore CRNA, at bedside for intubation and assistance with IV insertion. INT attempt by multiple RNs unsuccessful at this time. 11:42: Pt being bagged by KORIN, 02% 79%. No pulse palpated, compressions on at this time; bharati young called and Dr. Newberry preparing OR for emergent c/s. 11:44: Continued compressions on stretcher while transporting pt to OR 1. Pt being bagged with jaw thrust manuever in place by KORIN Stringer student. 11:45: Arrival to OR 1. Dr. Newberry and Dr. Portillo present for emergent c/s. Code team arrived for continued care. patient revived and c/s done Patient has been bleeding from C/s site followed by supracervical hysterectomy for severe bleeding, Patient transfused multiple units of PRBC, Patient in DIC. Patient transferred to the ICU Hospital course; 10/03. Patient seen and examined at bedside this morning. Patient is nonres ponsive and mechanically ventilated. On pressors. Labs reviewed-has leukocytosis, anemia, thrombocytopenia, ADOLPH and lactic acidosis. Started on IV antibiotics to cover possible sepsis secondary to DIC. Hematology oncology recommendations appreciated-needs additional cryoprecipitate and FFP. Monitor D-dimer, fibrinogen and frequent labs. Nephrology consulted for lactic acidosis and ADOLPH. 10/04. Remains mechanically ventilated. Kevin antibiotics. Labs shows improved acidosis - lactic acid 3.5. Hb drop noted. Getting transfused 2 units PRBCs. Platelet count is ~40k. Continue to monitor labs closely. Critical care team on board. 10/05; xray reviewed, concerning for multifocal infilrate, likely underlying Pneumonia, will add ID consult to assist with management of this critically ill patient, start tube feed, closely monitor renal system 10/06: Resumed care, remains on mechanical ventilation. No active bleeding, H&H stable. Continue to monitor CBC and BMP. Continue IV antibiotic for underlying pneumonia. Follow critical care and ID recommendation. 10/07: Remains on mechanical ventilation. No active bleeding, H&H stable. Critical care following, wean off ventilation as tolerated. 10/08: Patient had another cardiac arrest last night. Remains on mechanical ventilation, update family. Continue supportive care -poor prognosis 10/09: Called patient mother and discussed about patient care and management. Answered all question to best of my knowledge and family satisfaction. Patient remains on mechanical ventilation, cardiac arrest x2 so far. Critically sick, poor prognosis 10/10: remains on mechanical ventilation. h/h stable, no active bleeding. monitor CBC/BMP 10/11: WBC trended up with diarrhea, started on vancomycin po. remains on MV, off pressor, tolerating TF 10/12: remains on MV, off pressor, tolerating TF. called family for update but unable to reach, could not leave message as it was full. cont supportive care, wean off vent as tolerated. 10/13/2020; patient is on mechanical ventilation, tolerating tube feeding. Patient has labored breathing. Neuro was consulted and recommend MRI. Patient is on Precedex. Rectal tube in place. 10/14/2020; patient is on mechanical ventilation, Precedex. Patient had fever and blood culture ordered. Patient is on IV vancomycin per ID recommendation. Neuro consulted and recommend MRI. Continue to monitor. Prognosis is guarded. 10/15/2020; patient is on mechanical ventilation, Precedex. Patient had fever and blood culture ordered. Patient is on IV vancomycin per ID recommendation. Neuro consulted and recommend MRI. Continue to monitor. Prognosis is guarded. 12: Remains with C.DIFF and Bactermia, Poor prognosis. No purposeful movement. MRI and EEG discussed with Intensvisit, Continue aggressive BP control. 13: Blood pressure better controlled MRI done 10/15 shows mild improvement in edema. We will continue to monitor mother was at bedside yesterday. Nursing documentation trach and PEG discussed with the mother including goals of care. She is still in denial about the gravity of her daughters her condition which is understandable considering her age. Continue aggressive management at this time. Await for bacteremia to clear by ID before placing PICC line. 10/19: Patient for possible PEG and Trach, ID following, repeat cultures remain negative. Poor prognosis 10/20: Pt noted to DVT and SVT in the RUE, Vascular consult and will also obtain Hematology for possible considering changing in Anticoagulation. CONTINUE TO MONITOR H/H and PLT. Family updated by Intens[employer]it. Heparin gtt started. Will check CBC and BMP 10/21: Continue supporive care, Diarrhea now resolving, But still with persistent Fever, May need repeat CT/AP per ID, still with profused Encephalopathy 10/22: Continue supportive care, weaning, awaiting repeat Imaging. FOLLOW Fever curve. Enoxparin restarted 10/23: Continue supportive care, wean as tolerated. 10/24; Started on CPAP trial, discussed with pulmonary, still with diarrhea. 10/25: Patients seen and examined, no clinical changes, still with diarrhea. ?meaningful recovery. 10/26: Clinically unchanged, continue CPAP trial, Will discuss with Neurology about re-evaluation, ?Need for repeat CT head. ?PRESS considering initial elevated BP, now stable. 10/27; tracheostomy on vent, weaning trials, vital signs noted, poor prognosis 10/28; unable to wean, tracheostomy on vent. Sepsis. Continue current management. Consults and recommendations noted and appreciated 10/30/2020;Patient on T-piece 5 L of oxygen not in acute distress, noncommunicative 11/02/2020; patient on T-piece 5 L of oxygen 11/03/2020; patient's fever slightly improved low-grade, continue current management, remains on T-piece with 5 L of oxygen The high probability of a clinically significant, sudden or life threatening deterioration of the [MULTIPLE ORGAN] system(s) required my full and direct attention, intervention and personal management. The aggregate critical care time was [34 ] minutes. This time is in addition to time spent performing reported procedures but includes the following: [X] Data Review and interpretation [X] Patient assessment and monitoring of vital signs [X] Documentation [X] Medication orders and management History Interval history: I have seen and examined the patient at the bedside Patient's chart and medications reviewed Patient on contact isolation due to C. difficile Low-grade fever, unresponsive Tracheostomy on T-piece Vital signs noted Hospitalist Physical - Constitutional Vitals: Temp Pulse Resp BP Pulse Ox 100.4 F H 105 H 15 113/42 99 11/03/20 08:00 11/03/20 09:00 11/03/20 09:08 11/03/20 09:00 11/03/20 09:00 General appearance: Present: no acute distress, well-nourished, obese, other (On T-piece 5 L oxygen, noncommunicative) - EENT Eyes: Present: PERRL, EOM intact - Neck Neck: Present: supple, normal ROM, other (Tracheostomy on T-piece) - Respiratory Respiratory effort: normal Respiratory: bilateral: diminished, negative: rales, rhonchi, wheezing - Cardiovascular Rhythm: regular Heart Sounds: Present: S1 & S2 - Extremities Extremities: no ischemia Extremity abnormal: edema - Abdominal General gastrointestinal: soft, non-tender, non-distended, normal bowel sounds - Integumentary Integumentary: Present: clear, warm - Psychiatric Psychiatric: other (Noncommunicative unresponsive) - Neurologic Neurologic: other (Noncommunicative) HEART Score - HEART Score Age: < 45 Risk factors: 1-2 risk factors - Critical Actions Critical Actions: >7 pts:50-65% risk of adverse cardiac event. Early invasive measures Results - Labs CBC & Chem 7: 10/29/20 07:56 11/01/20 05:01 Labs: Laboratory Last Values WBC 13.6 K/mm3 (4.5-11.0) H 10/29/20 07:56 RBC 3.88 M/mm3 (3.65-5.03) 10/29/20 07:56 Hgb 10.9 gm/dl (10.1-14.3) 10/29/20 07:56 Hgb Comment See scanned result 10/04/20 Unknown Hct 32.4 % (30.3-42.9) 10/29/20 07:56 MCV 84 fl (79-97) 10/29/20 07:56 MCH 28 pg (28-32) 10/29/20 07:56 MCHC 34 % (30-34) 10/29/20 07:56 RDW 17.0 % (13.2-15.2) H 10/29/20 07:56 Plt Count 437 K/mm3 (140-440) 10/29/20 07:56 Lymph % (Auto) 11.2 % (13.4-35.0) L 10/20/20 16:52 Centre % (Auto) 8.1 % (0.0-7.3) H 10/20/20 16:52 Eos % (Auto) 0.8 % (0.0-4.3) 10/20/20 16:52 Baso % (Auto) 1.1 % (0.0-1.8) 10/20/20 16:52 Lymph # (Auto) 2.1 K/mm3 (1.2-5.4) 10/20/20 16:52 Centre # (Auto) 1.5 K/mm3 (0.0-0.8) H 10/20/20 16:52 Eos # (Auto) 0.2 K/mm3 (0.0-0.4) 10/20/20 16:52 Baso # (Auto) 0.2 K/mm3 (0.0-0.1) H 10/20/20 16:52 Add Manual Diff Complete 10/29/20 07:56 Total Counted 100 10/29/20 07:56 Seg Neutrophils % 78.8 % (40.0-70.0) H 10/20/20 16:52 Seg Neuts % (Manual) 80.0 % (40.0-70.0) H 10/29/20 07:56 Band Neutrophils % 2.0 % 10/15/20 05:50 Lymphocytes % (Manual) 15.0 % (13.4-35.0) 10/29/20 07:56 Reactive Lymphs % (Man) 1.0 % 10/02/20 12:18 Monocytes % (Manual) 4.0 % (0.0-7.3) 10/29/20 07:56 Eosinophils % (Manual) 1.0 % (0.0-4.3) 10/29/20 07:56 Myelocytes % 2.0 % 10/02/20 13:05 Metamyelocytes % 1.0 % 10/14/20 04:00 Nucleated RBC % Not Reportable 10/29/20 07:56 Seg Neutrophils # 14.8 K/mm3 (1.8-7.7) H 10/20/20 16:52 Seg Neutrophils # Man 10.9 K/mm3 (1.8-7.7) H 10/29/20 07:56 Band Neutrophils # 0.0 K/mm3 10/29/20 07:56 Lymphocytes # (Manual) 2.0 K/mm3 (1.2-5.4) 10/29/20 07:56 Abs React Lymphs (Man) 0.0 K/mm3 10/29/20 07:56 Monocytes # (Manual) 0.5 K/mm3 (0.0-0.8) 10/29/20 07:56 Eosinophils # (Manual) 0.1 K/mm3 (0.0-0.4) 10/29/20 07:56 Basophils # (Manual) 0.0 K/mm3 (0.0-0.1) 10/29/20 07:56 Metamyelocytes # 0.0 K/mm3 10/29/20 07:56 Myelocytes # 0.0 K/mm3 10/29/20 07:56 Promyelocytes # 0.0 K/mm3 10/29/20 07:56 Blast Cells # 0.0 K/mm3 10/29/20 07:56 WBC Morphology Not Reportable 10/29/20 07:56 Hypersegmented Neuts Not Reportable 10/29/20 07:56 Hyposegmented Neuts Not Reportable 10/29/20 07:56 Hypogranular Neuts Not Reportable 10/29/20 07:56 Smudge Cells Not Reportable 10/29/20 07:56 Toxic Granulation Not Reportable 10/29/20 07:56 Toxic Vacuolation Not Reportable 10/29/20 07:56 Dohle Bodies Not Reportable 10/29/20 07:56 Pelger-Huet Anomaly Not Reportable 10/29/20 07:56 Ester Rods Not Reportable 10/29/20 07:56 Platelet Estimate Consistent w auto 10/29/20 07:56 Clumped Platelets Not Reportable 10/29/20 07:56 Plt Clumps, EDTA Not Reportable 10/29/20 07:56 Large Platelets Few 10/29/20 07:56 Giant Platelets Not Reportable 10/29/20 07:56 Platelet Satelliting Not Reportable 10/29/20 07:56 Plt Morphology Comment Not Reportable 10/29/20 07:56 RBC Morphology Not Reportable 10/29/20 07:56 Dimorphic RBCs Not Reportable 10/29/20 07:56 Polychromasia Rare 10/29/20 07:56 Hypochromasia Few 10/29/20 07:56 Poikilocytosis Not Reportable 10/29/20 07:56 Anisocytosis Not Reportable 10/29/20 07:56 Microcytosis Not Reportable 10/29/20 07:56 Macrocytosis Not Reportable 10/29/20 07:56 Spherocytes Not Reportable 10/29/20 07:56 Pappenheimer Bodies Not Reportable 10/29/20 07:56 Sickle Cells Not Reportable 10/29/20 07:56 Target Cells Few 10/29/20 07:56 Tear Drop Cells Not Reportable 10/29/20 07:56 Ovalocytes Not Reportable 10/29/20 07:56 Stomatocytes Few 10/14/20 04:00 Helmet Cells Not Reportable 10/29/20 07:56 Burk-[place] Bodies Not Reportable 10/29/20 07:56 [place] Rings Not Reportable 10/29/20 07:56 [place] Cells Not Reportable 10/29/20 07:56 Bite Cells Not Reportable 10/29/20 07:56 Crenated Cell Not Reportable 10/29/20 07:56 Elliptocytes Not Reportable 10/29/20 07:56 Acanthocytes (Spur) Not Reportable 10/29/20 07:56 Rouleaux Not Reportable 10/29/20 07:56 Hemoglobin C Crystals Not Reportable 10/29/20 07:56 Schistocytes Not Reportable 10/29/20 07:56 Malaria parasites Not Reportable 10/29/20 07:56 Sickle Cell Solubility See scanned result 10/04/20 Unknown Hemoglobin A See scanned result 10/04/20 Unknown Hemoglobin A2 See scanned result 10/04/20 Unknown Hemoglobin A2 Prime See scanned result 10/04/20 Unknown Hemoglobin C See scanned result 10/04/20 Unknown Hemoglobin D See scanned result 10/04/20 Unknown Hemoglobin E See scanned result 10/04/20 Unknown Hgb F Diffential Stain See scanned result 10/04/20 Unknown Hemoglobin F Quant See scanned result 10/04/20 Unknown Hemoglobin G See scanned result 10/04/20 Unknown Hemoglobin S See scanned result 10/04/20 Unknown Hemoglobin [place] See scanned result 10/04/20 Unknown Hemoglobin [place] See scanned result 10/04/20 Unknown Hemoglobin Analilia See scanned result 10/04/20 Unknown Variant Hemoglobin See scanned result 10/04/20 Unknown Abnorm Hgb IEF Confirm See scanned result 10/04/20 Unknown Hemoglobin Interpret See scanned result 10/04/20 Unknown Hemoglobinopathy Note See scanned result 10/04/20 Unknown Sharad Bodies Not Reportable 10/29/20 07:56 Hem Pathologist Commnt No 10/29/20 07:56 PT 13.6 Sec. (12.2-14.9) 10/21/20 13:54 INR 1.06 (0.87-1.13) 10/21/20 13:54 APTT 31.6 Sec. (24.2-36.6) 10/03/20 00:40 Fibrinogen 336 mg/dl (211-480) 10/04/20 10:00 D-Dimer > 22543 ng/mlDDU (0-234) H 10/04/20 10:00 ABG pH 7.459 pH Units (7.350-7.450) H 10/26/20 10:30 POC ABG pCO2 20.7 mmHg (32.0-48.0) L 10/13/20 07:18 ABG pCO2 32.4 mm Hg 10/26/20 10:30 POC ABG pO2 137.9 mmHg (83-108) H 10/13/20 07:18 ABG pO2 112.2 mm Hg (80.0-90.0) H 10/26/20 10:30 POC ABG HCO3 14.8 10/13/20 07:18 ABG HCO3 22.5 mmol/L (20.0-26.0) 10/26/20 10:30 ABG O2 Saturation 98.2 % (95.0-99.0) 10/26/20 10:30 ABG O2 Content 18.5 (0.0-44) 10/26/20 10:30 POC ABG Base Excess -6.9 10/13/20 07:18 ABG Base Excess -0.6 mmol/L (-2.0-3.0) 10/26/20 10:30 ABG Hemoglobin 13.5 gm/dl (12.0-16.0) 10/26/20 10:30 ABG Oxyhemoglobin 98.3 (94-98) H 10/13/20 07:18 ABG Carboxyhemoglobin 1.3 % (0.0-5.0) 10/26/20 10:30 ABG Methemoglobin 0.5 % (0.0-1.5) 10/26/20 10:30 ABG Sodium 135.9 mmol/L (136.0-145.0) L 10/13/20 07:18 ABG Potassium 3.7 mmol/L (3.40-4.50) 10/13/20 07:18 ABG Chloride 111.0 mmol/L (98-107) H 10/13/20 07:18 ABG Glucose 109 mg/dL (65-95) H 10/13/20 07:18 VBG pH 6.949 (7.320-7.420) L* 10/02/20 Unknown Oxyhemoglobin 96.5 % (95.0-99.0) 10/26/20 10:30 Carboxyhemoglobin 0.3 (0.5-1.5) L 10/13/20 07:18 FiO2 25 % 10/26/20 10:30 Sodium 135 mmol/L (137-145) L 11/01/20 05:01 Potassium 4.4 mmol/L (3.6-5.0) 11/01/20 05:01 Chloride 98.5 mmol/L (98-107) 11/01/20 05:01 Carbon Dioxide 24 mmol/L (22-30) 11/01/20 05:01 Anion Gap 17 mmol/L 11/01/20 05:01 BUN 16 mg/dL (7-17) 11/01/20 05:01 Creatinine 0.7 mg/dL (0.6-1.2) 11/01/20 05:01 Estimated GFR > 60 ml/min 11/01/20 05:01 BUN/Creatinine Ratio 23 % 11/01/20 05:01 Glucose 98 mg/dL (65-100) 11/01/20 05:01 POC Glucose 103 mg/dL (70-105) 11/03/20 08:00 Lactic Acid 1.90 mmol/L (0.7-2.0) 10/04/20 22:00 Uric Acid 7.5 mg/dL (3.5-7.6) 10/02/20 13:05 Calcium 9.3 mg/dL (8.4-10.2) 11/01/20 05:01 Ionized Calcium 4.4 mg/dL (4.8-5.6) L 10/07/20 21:00 Phosphorus 4.70 mg/dL (2.5-4.5) H 10/29/20 07:56 Magnesium 2.10 mg/dL (1.7-2.3) 11/01/20 05:01 Total Bilirubin 0.50 mg/dL (0.1-1.2) 11/01/20 05:01 AST 93 units/L (5-40) H 11/01/20 05:01 ALT 31 units/L (7-56) 11/01/20 05:01 Alkaline Phosphatase 132 units/L (35-129) H 11/01/20 05:01 Lactate Dehydrogenase 769 units/L (91-180) H 10/02/20 13:05 NT-Pro-B Natriuret Pep 2788 pg/mL (0-450) H 10/04/20 10:00 Total Protein 6.9 g/dL (6.3-8.2) 11/01/20 05:01 Albumin 3.6 g/dL (3.9-5) L 11/01/20 05:01 Albumin/Globulin Ratio 1.1 % 11/01/20 05:01 Procalcitonin 0.06 ng/mL (<0.15) 10/27/20 07:53 Arterial Blood Glucose 109 mg/dL (65-95) H 10/13/20 07:18 Arterial Blood Ionized Calcium 4.6 mg/dL (4.6-5.3) 10/13/20 07:18 Urine Color Yellow (Yellow) 10/11/20 13:26 Urine Turbidity Clear (Clear) 10/11/20 13:26 Urine pH 7.0 (5.0-7.0) 10/11/20 13:26 Ur Specific [place] 1.014 (1.003-1.030) 10/11/20 13:26 Urine Protein 100 mg/dl mg/dL (Negative) 10/11/20 13:26 Urine Glucose (UA) Neg mg/dL (Negative) 10/11/20 13:26 Urine Ketones Neg mg/dL (Negative) 10/11/20 13:26 Urine Blood Mod (Negative) 10/11/20 13:26 Urine Nitrite Neg (Negative) 10/11/20 13:26 Urine Bilirubin Neg (Negative) 10/11/20 13:26 Urine Urobilinogen < 2.0 mg/dL (<2.0) 10/11/20 13:26 Ur Leukocyte Esterase Sm (Negative) 10/11/20 13:26 Urine WBC (Auto) 24.0 /HPF (0.0-6.0) H 10/11/20 13:26 Urine RBC (Auto) 59.0 /HPF (0.0-6.0) 10/11/20 13:26 Urine Bacteria (Auto) 1+ /HPF (Negative) 10/11/20 13:26 Urine Mucus Few /HPF 10/11/20 13:26 Vancomycin Trough 12.6 ug/mL (5.0-20.0) 10/21/20 13:54 Random Vancomycin 10.7 ug/mL (0-40.0) 10/16/20 13:09 Phenytoin 5.7 ug/mL (10.0-20.0) L 10/13/20 07:00 C. difficile Tox (PCR) Positive (Negative) 10/16/20 10:22 Coronavirus (PCR) Negative (Negative) 10/08/20 14:15 Blood Type O POSITIVE 10/02/20 12:50 Antibody Screen Negative 10/02/20 12:50 Crossmatch See Detail 10/02/20 12:50 Microbiology: Microbiology 11/02/20 19:19 Peripheral/Venous Blood Culture - Preliminary Culture in Progress 11/02/20 19:35 Peripheral/Venous Blood Culture - Preliminary Culture in Progress - Diagnostic Impressions Diagnostic Impressions: Echocardiogram 10/03/20 13:42 Transthoracic Echocardiogram Indication: S/P Cardiac Arrest R/O Cardiomyopathy BP: 133/71 Conclusions *Global left ventricular systolic function is normal. *The estimated ejection fraction is 60-65%. *There is trace of mitral regurgitation. *The right 0heart chambers are both slightly dilated. *There is mild tricuspid regurgitation. *There is mild-moderate pulmonary hypertension. *The right ventricular systolic pressure is calculated at 44 mmHg. *The study quality is technically difficult. Findings Procedure Info: The study quality is technically difficult. The study is technically limited due to patient body habitus. The study was technically limited due to the patient's inability to lay in the left lateral decubitus position. Left Ventricle: The left ventricular chamber size is normal. There is no left ventricular hypertrophy. Global left ventricular systolic function is normal. The estimated ejection fraction is 60-65%. Left Atrium: The left atrial chamber size is normal. Right Ventricle: The right ventricle is slightly dilated. Right Atrium: The right atrium is mildly dilated. Aortic Valve: The aortic valve leaflets are mildly thickened. There is no evidence of aortic regurgitation. There is no evidence of aortic stenosis. Mitral Valve: The mitral valve leaflets are mildly thickened. There is trace of mitral regurgitation. There is no evidence of mitral stenosis. Tricuspid Valve: There is mild tricuspid regurgitation. The right ventricular systolic pressure is calculated at 44 mmHg. There is evidence of mild pulmonary hypertension. Pulmonic Valve: There is trace pulmonic regurgitation. Pericardium: There is no pericardial effusion. Aorta: There is no dilatation of the ascending aorta. There is no dilatation of the aortic root. Venous: The inferior vena cava is dilated. Measurements Chambers 2D Name Value Normal Range IVSd (2D) 1 cm (0.6 - 1.1) LVPWd (2D) 1.01 cm (0.6 - 1.1) LVIDd (2D) 4.58 cm (3.7 - 5.6) LVIDs (2D) 3.17 cm (2 - 3.8) LV FS (2D) 30.93 % - EF Teichholz (2D) 58.66 % - Ao root diameter (2D) 2.94 cm (2 - 3.7) Volumes/Mass Name Value Normal Range LA ESV SP 4CH (A/L) 72.82 ml - LA ESV SP 2CH (A/L) 66.86 ml - LA ESV BP (A/L) 74.49 ml - LA ESV SP 4CH (MOD) 71.03 ml - LA ESV SP 2CH (MOD) 64.3 ml - LV EDV SP 4CH (MOD) 98.82 ml - LV ESV SP 4CH (MOD) 24.8 ml - EF SP 4CH (MOD) 74.9 % - LV EDV SP 2CH (MOD) 86.1 ml - LV ESV SP 2CH (MOD) 36.93 ml - EF SP 2CH (MOD) 57.11 % - LV EDV BP 94.4 ml - LV ESV BP 32.66 ml - BP EF (MOD) 65.4 % - Diastolic/Systolic Function Name Value Normal Range MV E-wave Vmax 1.04 m/sec - MV deceleration time 160.46 msec - MV A-wave Vmax 0.92 m/sec - MV E:A ratio 1.14 ratio - Aortic Valve Name Value Normal Range AV Vmax 2.12 m/sec - AV VTI 22.37 cm - AV peak gradient 17.95 mmHg - AV mean gradient 7.29 mmHg - LVOT diameter 2.01 cm - LVOT Vmax 1.8 m/sec - LVOT VTI 27.17 cm - LVOT peak gradient 12.91 mmHg - LVOT mean gradient 6.83 mmHg - SV LVOT 86.42 ml - ANITA (continuity Vmax) 2.7 cm2 - ANITA (continuity VTI) 3.86 cm2 - Ascending Ao 3.18 cm - Tricuspid Valve Name Value Normal Range TV E-wave Vmax 0.88 m/sec - TR Vmax 3.01 m/sec - TR peak gradient 36.27 mmHg - RAP 8 mmHg - RVSP 44 mmHg - IVC diameter 2.65 cm (1.2 - 2.3) Pulmonic Valve/Qp:Qs Name Value Normal Range PV Vmax 1.22 m/sec - PV peak gradient 5.91 mmHg - RVOT Vmax 0.87 m/sec - RVOT VTI 13.32 cm - RVOT peak gradient 3 mmHg - PV acceleration time 110.37 msec - [place]/IV: Voiding Method External Female Catheter IV Catheter Type [Right Foot] INT / Saline Lock IV Catheter Type [Left Forearm Peripheral IV ] IV Catheter Type [Left Wrist] INT / Saline Lock IV Catheter Type [Right Hand] INT / Saline Lock IV Catheter Type [Right INT / Saline Lock Antecubital] IV Catheter Type [Right Upper Mid-line arm] IV Catheter Type [Left Triple Lumen Cath Internal Jugular] IV Catheter Type [Left Hand] Peripheral IV IV Catheter Type [Left Peripheral IV Antecubital] Active Medications - Current Medications Current Medications: Generic Name Dose Route Start Last Admin Trade Name Freq PRN Reason Stop Dose Admin Acetaminophen 650 mg 10/05/20 16:34 11/03/20 09:08 Acetaminophen 325 Mg/10.15 Ml Oral Liqd Unit Dose FEEDTUBE 650 mg Q6H PRN Administration Non Cardiac Pain or Temp>100.5 Lipase/Protease/Amylase 1 each 10/05/20 11:09 Lipase 10,500/Protease 25,000/Amylase 43,750 (Units) Dr Barakat FEEDTUBE PRN PRN For Clogged Feeding Tube Enoxaparin Sodium 40 mg 10/22/20 10:00 11/03/20 09:06 Enoxaparin 40 Mg/0.4 Ml Inj SUB-Q 40 mg DAILY ERINN Administration Protocol Famotidine 20 mg 10/07/20 10:00 11/03/20 09:07 Famotidine 20 Mg Tab PO 20 mg BID ERINN Administration Furosemide 40 mg 10/17/20 10:00 11/03/20 09:06 Furosemide 40 Mg Tab PO 40 mg QDAY ERINN Administration Hydralazine HCl 20 mg 10/07/20 11:49 10/17/20 07:20 Hydralazine 20 Mg/1 Ml Inj IV 20 mg Q6H PRN Administration SBP >170 Hydralazine HCl 50 mg 10/17/20 09:00 11/03/20 05:33 Hydralazine 25 Mg Tab PO Not Given Q8HR ERINN Hydrophilic Ointment 1 applic 10/04/20 06:55 10/31/20 23:17 Lip Therapy Vaseline TP 1 applic Q2HR PRN Administration Dry Lips Dextrose 1,000 mls @ 75 mls/hr 10/13/20 11:00 11/03/20 08:49 D10w IV 75 mls/hr DIRECT ERINN Administration Labetalol HCl 300 mg 10/17/20 09:00 11/03/20 07:33 Labetalol 100 Mg Tab PO Not Given TID ERINN Multi-Ingred Cream/Lotion/Oil/Oint 1 applic 10/04/20 06:55 Mineral Oil/Petrolatum, White Ophth Oint 3.5 Gm OU Q4HR PRN Dry Eye(s) Simple Syrup 15 ml 10/05/20 11:09 Simple Syrup 15 Ml FEEDTUBE PRN PRN Hypoglycemia Simple Syrup 30 ml 10/05/20 11:09 Simple Syrup 15 Ml FEEDTUBE PRN PRN Hypoglycemia Sodium Bicarbonate 325 mg 10/05/20 11:09 Sodium Bicarbonate 325 Mg Tab FEEDTUBE PRN PRN For Clogged Feeding Tube Sodium Bicarbonate 1,300 mg 10/13/20 14:00 11/03/20 07:35 Sodium Bicarbonate 650 Mg Tab PO 1,300 mg TID ERINN Administration Topiramate 50 mg 10/05/20 11:00 11/02/20 22:21 Topiramate Tab 25 Mg Tab PO 50 mg Q12HR ERINN Administration Nutrition/Malnutrition Assess - Dietary Evaluation Nutrition/Malnutrition Findings: Nutrition Notes Start: 10/04/20 11:13 Freq: Status: Active Protocol: Document 11/02/20 11:37 MK (Rec: 11/02/20 11:43 [email or web address]) Nutrition Notes Initial or Follow up Reassessment Current Diagnosis Acute Kidney Injury, Respiratory Failure Other Pertinent Diagnosis Cardiac arrest, s/p c-sectuion and supracervial hysterectomy Current Diet Jevity at 60 ml/hr Labs/Tests 11/01: Na 135 Pertinent Medications lasix D10w at 75ml/hr Height 5 ft 8 in Weight 106.2 kg [place] Body Weight (kg) 63.63 BMI 35.6 Weight Status Morbidly Obese Subjective/Other Information FU for TF tolerance. Pt remains on D10 due to BG. Pt tolerating TF at goal, per RN. Pt on t-peice. Percent of energy/protein needs met: 100%/100% Burn Absent Trauma Absent GI Symptoms None Food Allergy Yes Current % PO Negligible Minimum of two criteria No Fluid Accumulation Mild (non-severe) #1 Nutrition Diagnosis Inadequate oral intake Diagnosis Progress(for reassessment Continues documentation) Is patient on ventilator? No Is Patient Ambulatory and/or Out of Bed No REE-([facility]-confined [facility] bed) 2186.400 Kcal/Kg value to use for calculation 16 Approximate Energy Requirements Using 1699 kcal/Kg Calculation Used for Recommendations Kcal/kg Additional Notes Protein needs are 68-84g (0.8- 1g/kg AdjBW 85kg) Fluid needs are 1ml/kcal Nutrition Intervention Change Diet Order: Continue Nutrition Support: Jevity 1.2 at 60ml/hr. Flush 100ml q4h. Kcal 1,782 Protein (gm) 87 Fluid (mL) 1,259 Goal #1 TF tolerance Goal #2 Meet at least 75% of energy and protein needs Anticipated Discharge Needs: Unable to determine at this time Follow-Up By: 11/05/20 Additional Comments FU for TF tolernace, BG and Na labs
[2020-11-03] MEDS: TOPIRAMATE TAB 25 MG TAB PO SCH ×2 (11:16→23:43)
--- NOTE | 2020-11-03 13:25 | Progress Note ---
Assessment and Plan A: POD#32 s/p repeat section at 36 wks secondary to Eclampsia and Cardiac Arrest with Resuscitation POD#32 s/p supracervical abdominal hysterectomy secondary to Uterine Atony, Hemorrhage and Disseminated Intravascular Coagulation (DIC) s/p multiple transfusions of blood products POD #13 s/p Percutaneous Tracheostomy, Fiberoptic Bronchoscopy, PEG tube placement Right Upper Extremity superficial and deep vein thrombosis on Lovenox Hypoglycemia -Status post cardiac arrest 10/07/2020 requiring reintubation. -Shock, DIC: Secondary to hemorrhage-stable -Sepsis: followed by ID, abx/imaging recommendations noted -Acute kidney injury: resolved, labs stable -Acute respiratory failure: off vent presently -Preeclampsia: s/p Magnesium P: Continue current management as recommended by Executive Coordinator and Hospitalist services Subjective - Subjective Date of service: 11/03/20 Principal diagnosis: Eclampsia/HELLP Syndrome, ADOLPH, DIC; s/p , s/p supracervical hyst Interval history: All lean consultant recommendations reviewed and greatly appreciated. 30y/o POD #32 s/p emergent section and supracervical hysterectomy for eclampsia and DIC. POD#13 s/p Percutaneous tracheostomy, Fiberoptic bronchoscopy, PEG tube placement. Currently on Lovenox for SVT and DVT in right upper extremity. Febrile overnight to Tmax 102.4. Pt remains unresponsive, with spontaneous blinking of eyes and movement of right lower extremity. Patient reports: no voiding normally, no ambulating normally Objective - Vital Signs Latest vital signs: Vital Signs Temp Pulse Pulse Resp BP Pulse Ox Pulse Ox 11/03/20 12:00 99.4 F 11/03/20 11:00 100 H 20 118/62 100 11/03/20 10:00 83 20 109/59 100 11/03/20 09:08 15 11/03/20 09:00 105 H 26 H 113/42 99 11/03/20 08:13 100 11/03/20 08:00 100.4 F H 103 H 101 H 24 102/63 100 11/03/20 07:33 95 H 96/63 11/03/20 07:00 84 20 96/63 100 11/03/20 06:01 105 H 31 H 102/63 97 11/03/20 05:33 109 H 102/63 11/03/20 05:00 90 25 H 106/54 100 11/03/20 04:40 99 11/03/20 04:00 99.4 F 113 H 97 H 13 121/64 99 11/03/20 03:00 113 H 29 H 111/60 99 11/03/20 02:00 92 H 23 102/55 100 11/03/20 01:16 99.8 F H 11/03/20 01:00 110 H 31 H 105/48 100 11/03/20 00:00 99.8 F H 107 H 106 H 32 H 86/65 99 11/02/20 23:00 105 H 20 95/69 98 11/02/20 22:20 104 H 103/68 11/02/20 22:00 104 H 28 H 97/50 98 11/02/20 21:00 98 H 16 112/56 99 11/02/20 20:31 99 11/02/20 20:30 99 11/02/20 20:00 99.2 F 111 H 104 H 33 H 112/56 100 11/02/20 19:43 103 H 118/55 11/02/20 19:00 112 H 25 H 105/72 100 11/02/20 18:14 106 H 15 108/56 100 11/02/20 18:00 117 H 33 H 127/62 99 11/02/20 17:00 116 H 21 127/62 100 11/02/20 16:15 100.0 F H 11/02/20 16:00 99 H 24 115/57 100 11/02/20 15:57 99 11/02/20 15:47 100 H 134/51 11/02/20 15:00 116 H 33 H 133/64 99 11/02/20 14:00 103 H 24 118/71 100 Intake and Output 11/02/20 11/03/20 11/03/20 22:59 06:59 14:59 Intake Total 1711.25 680 1383.75 Output Total 350 0 Balance 1361.25 680 1383.75 Intake: IV 991.25 983.75 D10w 1,000 ml @ 75 mls/hr 991.25 983.75 IV DIRECT ERINN Rx#: [id number] Intake, Free Water 240 200 100 Tube Feeding 480 480 300 Output: Gastric Drainage 0 Oral 0 Urine 350 Void 350 Other: Total, Intake Amount 60 60 60 Total, Output Amount 350 Voiding Method External Female Catheter External Female Catheter External Female Catheter # Bowel Movements 200 Weight 109.8 kg - Exam Breasts: Present: deferred Abdomen: Present: soft (obese), other (incision intact and dry ) Extremities: Present: edema - Labs Labs: Abnormal lab results 11/02/20 Range/Units 17:45 POC Glucose 107 H (70-105) mg/dL
--- NOTE | 2020-11-03 13:54 | Progress Note ---
Assessment and Plan 30 y/o female with Eclampsia, s/p emergent section with DIC, acute respiratory failure and worsening renal function. 11/03/20: Continue D10. Await send out labs. 11/02/20: Called lab today to ask how to order these send out labs. Continue D10 along with feeds for now. Stopped robinol and no further reports of increased thickness of secretions. given D10 requirement, do not feel comfortable with transition to the floor. 11/01/20: Will stop Robinol as this may be making secretions to thick. Huge risk for mucous plugging given mental state. Continue D10 and waiting on labs from yesterday. LFT's repeated and AST elevated along with alk phos. Both of these were elevated on admission, then resolved and now are elevated again. In current clinical state, not sure what to make of those numbers. They do not help with trying to figure out hypoglycemia and persistent need for D10. Continue IMCU care. 10/31/20: Will order midline for IV team vs peripheral IV's (multiple). Needs access for d10 as we have not been able to figure out why she is so hypoglyemic. Will measure serum insulin levels and C-peptide levels, as well proinsulin. All of these labs are sendouts so will have to call down to ask how to order as they are not coming up in [facility]. Given her requirement for supplemental IV sugar, not a candidate for floor transfer. 10/30/20: Continue step down monitoring for now. If does well the next 24-36 hours, then will consider floor transfer. Really needs to continue PT with PROM. Will speak with CM about options for here now that critical needs are becoming minimal. 10/29/20: Off vent now for 24 hours. Tolerating T-Piece. Will transition to step down for a few days. If does well there, consider transition to floor. Continue PT. Guarded prognosis. 10/28/20: Daily T-piece trials for as long as tolerated. Attempt to push further daily. OT does not do passive range of motion. Per PT note will do passive range of motion with patient. Guarded prognosis. Hoping to wean off vent and transition to floor. 10/27/20: Continue daily T-piece trials for as long as tolerated. Ok with rest ing on either PSV or full rate if needed at night but need to strengthen her respiratory muscles. PT/OT if possible. Will transition to step down prior to going to floor to insure stability. 10/26/20: Will obtain ABG today. If good, will attempt on T-piece later. Continue PT/OT. Will speak with CM about possibility of LTACH or nursing facility that can take trached patients. 10/23/20: Daily PSV trials for as long as patient will tolerate. Needs PT/OT consult for passive range of motion. 10/22/20: Will start prolonged PSV trials. Attempt to wean from vent and then transition to floor to see if mental status improves. Continue tube feeds. 10/21/20: Trach and peg placed. No sedation. Restart Lovenox for Upper Ext DVT. Restart feeds when surgery states ok to use PEG. C. Diff treatment per ID. Guarded prognosis. Will be a manager intermediate wean. Hopeful to wean off vent at least and then can transfer to floor. 10/20/20: NPO after midnight. DVT study just read from 10/14 on yesterday showing upper ext DVT. Started on Lovenox but need to hold therapy until after surgery. could be source of fevers. No sedation. 10/19/20: Stable BP. Will meet/talk with family at noon over the phone with myself and case management. Need to discuss goals of care and what next steps would be. Patient would need trach and peg and transfer to LTACH if family ok with this. Follow up speciation of GNR's in blood. Has been on Cefepime. Continues therapy for C. Diff. Guarded prognosis. Continue daily PSV trials but not ready for extubation secondary to mental state. 10/18/20: Blood pressure is much better with the addition of meds started on yesterday. Need to have family meeting jesica in regards to goals of care. Continue Daily PSV trials but not ready for extubation. Continue therapy for C. Diff per ID. 10/17/20: CT scan was of no help in regards to fevers. C. Diff is positive and BP now is more uncontrolled despite increasing labetalol. Today will increase to 300 TID. Added TID Hydralazine and added PO lasix given her mild pulmonary htn seen on echo. Spoke with mother over the phone and she requests to come see the patient. Given current circumstances, will allow her to come briefly today and then will speak with her at the bedside. No neurology is available at the time and suspect these will be the majority of her questions. Tolerated PSV briefly yesterday and will do again today but not for extended periods as given her mental state she is not a candidate for extubation. I will also ask the mother about manager intermediate care (trach and peg) when she comes today. Overall prognosis is guarded to poor. If oral meds cannot regulate blood pressure, may need Cardene drip. Continue therapy for C. Diff per ID. Subjective Date of service: 11/03/20 Principal diagnosis: Eclampsia/HELLP Syndrome, ADOLPH, DIC; s/p , s/p supracervical hyst Interval history: No acute events. Remains unresponsive. STable on T-piece. Objective Vital Signs - 12hr 11/03/20 11/03/20 11/03/20 02:00 03:00 04:00 Temperature 99.4 F Pulse Rate 92 H 113 H 113 H Pulse Rate [ 97 H From Monitor] Respiratory 23 29 H 13 Rate Blood Pressure 102/55 111/60 121/64 O2 Sat by Pulse 100 99 99 Oximetry O2 Sat by Pulse Oximetry [ Assessment] 11/03/20 11/03/20 11/03/20 04:40 05:00 05:33 Temperature Pulse Rate 90 109 H Pulse Rate [ From Monitor] Respiratory 25 H Rate Blood Pressure 106/54 102/63 O2 Sat by Pulse 100 Oximetry O2 Sat by Pulse 99 Oximetry [ Assessment] 11/03/20 11/03/20 11/03/20 06:01 07:00 07:33 Temperature Pulse Rate 105 H 84 95 H Pulse Rate [ From Monitor] Respiratory 31 H 20 Rate Blood Pressure 102/63 96/63 96/63 O2 Sat by Pulse 97 100 Oximetry O2 Sat by Pulse Oximetry [ Assessment] 11/03/20 11/03/20 11/03/20 08:00 08:13 09:00 Temperature 100.4 F H Pulse Rate 103 H 105 H Pulse Rate [ 101 H From Monitor] Respiratory 24 26 H Rate Blood Pressure 102/63 113/42 O2 Sat by Pulse 100 100 99 Oximetry O2 Sat by Pulse Oximetry [ Assessment] 11/03/20 11/03/20 11/03/20 09:08 10:00 11:00 Temperature Pulse Rate 83 100 H Pulse Rate [ From Monitor] Respiratory 15 20 20 Rate Blood Pressure 109/59 118/62 O2 Sat by Pulse 100 100 Oximetry O2 Sat by Pulse Oximetry [ Assessment] 11/03/20 12:00 Temperature 99.4 F Pulse Rate Pulse Rate [ From Monitor] Respiratory Rate Blood Pressure O2 Sat by Pulse Oximetry O2 Sat by Pulse Oximetry [ Assessment] Constitutional: comatose, other (critically ill on ventilator trach) Eyes: non-icteric ENT: oropharynx moist, other (orally intubated and not sedated) Neck: other (large in cirumference) Effort: normal Ascultation: Bilateral: clear, diminished breath sounds, other (coarse BS bilaterally w/ mild faint wheezes) Percussion: Bilateral: not dull Cardiovascular: regular rate and rhythm, other (no mrg) Gastrointestinal: normoactive bowel sounds, soft, other (post surgical changes with drain on the left side) Extremities: no cyanosis, pink and warm, anasarca Neurologic: other (unresponsive, not following commands, not tracking) Psychiatric: other (unable to assess) CBC and BMP: 10/29/20 07:56 11/01/20 05:01 ABG, PT/INR, D-dimer: ABG ABG pH 7.459 pH Units (7.350-7.450) H 10/26/20 10:30 POC ABG pCO2 20.7 mmHg (32.0-48.0) L 10/13/20 07:18 ABG pCO2 32.4 mm Hg 10/26/20 10:30 POC ABG pO2 137.9 mmHg (83-108) H 10/13/20 07:18 ABG pO2 112.2 mm Hg (80.0-90.0) H 10/26/20 10:30 POC ABG HCO3 14.8 10/13/20 07:18 ABG O2 Saturation 98.2 % (95.0-99.0) 10/26/20 10:30 PT/INR, D-dimer PT 13.6 Sec. (12.2-14.9) 10/21/20 13:54 INR 1.06 (0.87-1.13) 10/21/20 13:54 D-Dimer > 26736 ng/mlDDU (0-234) H 10/04/20 10:00 Abnormal lab findings: Abnormal Labs 10/02/20 10/02/20 10/02/20 12:03 12:18 12:18 WBC 14.9 H RBC Hgb 9.1 L Hct MCV MCH 22 L MCHC 28 L RDW 17.6 H Plt Count 102 L Lymph % (Auto) Turner % (Auto) Lymph # (Auto) Turner # (Auto) Baso # (Auto) Seg Neutrophils % Seg Neuts % (Manual) 36.0 L Lymphocytes % (Manual) 49.0 H Monocytes % (Manual) Nucleated RBC % 6.0 H Seg Neutrophils # Seg Neutrophils # Man Lymphocytes # (Manual) 7.3 H Monocytes # (Manual) PT INR APTT Fibrinogen D-Dimer ABG pH POC ABG pCO2 POC ABG pO2 ABG pO2 ABG HCO3 ABG Base Excess ABG Hemoglobin ABG Oxyhemoglobin ABG Sodium ABG Potassium ABG Chloride ABG Glucose VBG pH Oxyhemoglobin Carboxyhemoglobin Sodium 134 L Potassium Chloride Carbon Dioxide 12 L BUN 6 L Creatinine Glucose 390 H POC Glucose 451 H Lactic Acid Calcium Ionized Calcium Phosphorus Magnesium AST 135 H ALT 85 H Alkaline Phosphatase 172 H Lactate Dehydrogenase 641 H NT-Pro-B Natriuret Pep Total Protein 5.4 L Albumin 2.3 L Arterial Blood Glucose Arterial Blood Ionized Calcium Urine WBC (Auto) Vancomycin Trough Phenytoin Crossmatch 10/02/20 10/02/20 10/02/20 12:50 13:05 13:05 WBC 38.6 H RBC Hgb 8.9 L Hct 29.0 L MCV 73 L MCH 22 L MCHC RDW 17.2 H Plt Count Lymph % (Auto) Turner % (Auto) Lymph # (Auto) Turner # (Auto) Baso # (Auto) Seg Neutrophils % Seg Neuts % (Manual) Lymphocytes % (Manual) Monocytes % (Manual) Nucleated RBC % 2.0 H Seg Neutrophils # Seg Neutrophils # Man 20.1 H Lymphocytes # (Manual) 10.4 H Monocytes # (Manual) 2.3 H PT INR APTT Fibrinogen D-Dimer ABG pH POC ABG pCO2 POC ABG pO2 ABG pO2 ABG HCO3 ABG Base Excess ABG Hemoglobin ABG Oxyhemoglobin ABG Sodium ABG Potassium ABG Chloride ABG Glucose VBG pH Oxyhemoglobin Carboxyhemoglobin Sodium Potassium Chloride Carbon Dioxide BUN Creatinine Glucose POC Glucose Lactic Acid Calcium Ionized Calcium Phosphorus Magnesium AST 184 H ALT 113 H Alkaline Phosphatase Lactate Dehydrogenase 769 H NT-Pro-B Natriuret Pep Total Protein Albumin Arterial Blood Glucose Arterial Blood Ionized Calcium Urine WBC (Auto) Vancomycin Trough Phenytoin Crossmatch See Detail 10/02/20 10/02/20 10/02/20 16:25 16:35 16:35 WBC RBC Hgb Hct MCV MCH MCHC RDW Plt Count Lymph % (Auto) Turner % (Auto) Lymph # (Auto) Turner # (Auto) Baso # (Auto) Seg Neutrophils % Seg Neuts % (Manual) Lymphocytes % (Manual) Monocytes % (Manual) Nucleated RBC % Seg Neutrophils # Seg Neutrophils # Man Lymphocytes # (Manual) Monocytes # (Manual) PT INR APTT Fibrinogen D-Dimer ABG pH 7.031 L* POC ABG pCO2 POC ABG pO2 ABG pO2 116.8 H ABG HCO3 12.7 L ABG Base Excess -16.9 L ABG Hemoglobin 7.8 L ABG Oxyhemoglobin ABG Sodium ABG Potassium ABG Chloride ABG Glucose VBG pH Oxyhemoglobin 94.9 L Carboxyhemoglobin Sodium Potassium Chloride Carbon Dioxide BUN Creatinine Glucose 403 H POC Glucose Lactic Acid 11.40 H* Calcium 6.3 L D Ionized Calcium Phosphorus Magnesium AST 70 H ALT Alkaline Phosphatase Lactate Dehydrogenase NT-Pro-B Natriuret Pep Total Protein 1.9 L D Albumin 1.2 L Arterial Blood Glucose Arterial Blood Ionized Calcium Urine WBC (Auto) Vancomycin Trough Phenytoin Crossmatch 10/02/20 10/02/20 10/02/20 18:18 18:18 22:30 WBC 11.5 H RBC 2.06 L Hgb 5.5 L* D Hct 17.3 L* D MCV MCH 27 L MCHC RDW 19.5 H Plt Count 60 L Lymph % (Auto) Turner % (Auto) Lymph # (Auto) Turner # (Auto) Baso # (Auto) Seg Neutrophils % Seg Neuts % (Manual) Lymphocytes % (Manual) 8.0 L Monocytes % (Manual) 8.0 H Nucleated RBC % 8.0 H Seg Neutrophils # Seg Neutrophils # Man Lymphocytes # (Manual) 0.9 L Monocytes # (Manual) 0.9 H PT 37.1 H INR 3.71 H APTT 135.8 H* Fibrinogen D-Dimer ABG pH 7.067 L* POC ABG pCO2 POC ABG pO2 ABG pO2 183.0 H ABG HCO3 14.1 L ABG Base Excess -15.1 L ABG Hemoglobin 7.7 L ABG Oxyhemoglobin ABG Sodium ABG Potassium ABG Chloride ABG Glucose VBG pH Oxyhemoglobin Carboxyhemoglobin Sodium Potassium Chloride Carbon Dioxide BUN Creatinine Glucose POC Glucose Lactic Acid Calcium Ionized Calcium Phosphorus Magnesium AST ALT Alkaline Phosphatase Lactate Dehydrogenase NT-Pro-B Natriuret Pep Total Protein Albumin Arterial Blood Glucose Arterial Blood Ionized Calcium Urine WBC (Auto) Vancomycin Trough Phenytoin Crossmatch 10/02/20 10/02/20 10/03/20 Unknown Unknown 00:01 WBC RBC Hgb Hct MCV MCH MCHC RDW Plt Count Lymph % (Auto) Turner % (Auto) Lymph # (Auto) Turner # (Auto) Baso # (Auto) Seg Neutrophils % Seg Neuts % (Manual) Lymphocytes % (Manual) Monocytes % (Manual) Nucleated RBC % Seg Neutrophils # Seg Neutrophils # Man Lymphocytes # (Manual) Monocytes # (Manual) PT 61.1 H INR 6.92 H* APTT 158.7 H* Fibrinogen < 60 L* D-Dimer > 21592 H ABG pH POC ABG pCO2 POC ABG pO2 ABG pO2 ABG HCO3 ABG Base Excess ABG Hemoglobin ABG Oxyhemoglobin ABG Sodium ABG Potassium ABG Chloride ABG Glucose VBG pH 6.949 L* Oxyhemoglobin Carboxyhemoglobin Sodium Potassium Chloride Carbon Dioxide BUN Creatinine Glucose POC Glucose 196 H Lactic Acid Calcium Ionized Calcium Phosphorus Magnesium AST ALT Alkaline Phosphatase Lactate Dehydrogenase NT-Pro-B Natriuret Pep Total Protein Albumin Arterial Blood Glucose Arterial Blood Ionized Calcium Urine WBC (Auto) Vancomycin Trough Phenytoin Crossmatch 10/03/20 10/03/20 10/03/20 00:40 00:40 00:40 WBC RBC Hgb Hct MCV MCH MCHC RDW Plt Count Lymph % (Auto) Turner % (Auto) Lymph # (Auto) Turner # (Auto) Baso # (Auto) Seg Neutrophils % Seg Neuts % (Manual) Lymphocytes % (Manual) Monocytes % (Manual) Nucleated RBC % Seg Neutrophils # Seg Neutrophils # Man Lymphocytes # (Manual) Monocytes # (Manual) PT 15.1 H INR 1.21 H APTT Fibrinogen D-Dimer ABG pH POC ABG pCO2 POC ABG pO2 ABG pO2 ABG HCO3 ABG Base Excess ABG Hemoglobin ABG Oxyhemoglobin ABG Sodium ABG Potassium ABG Chloride ABG Glucose VBG pH Oxyhemoglobin Carboxyhemoglobin Sodium 136 L Potassium Chloride Carbon Dioxide BUN Creatinine 1.6 H D Glucose 106 H POC Glucose Lactic Acid 5.60 H* Calcium 6.5 L Ionized Calcium Phosphorus Magnesium AST 232 H ALT 104 H Alkaline Phosphatase Lactate Dehydrogenase NT-Pro-B Natriuret Pep Total Protein 3.9 L D Albumin 2.4 L Arterial Blood Glucose Arterial Blood Ionized Calcium Urine WBC (Auto) Vancomycin Trough Phenytoin Crossmatch 10/03/20 10/03/20 10/03/20 02:08 02:08 02:08 WBC 17.6 H RBC 3.27 L Hgb 9.9 L D Hct 29.9 L D MCV MCH MCHC RDW 16.5 H Plt Count 75 L Lymph % (Auto) Turner % (Auto) Lymph # (Auto) Turner # (Auto) Baso # (Auto) Seg Neutrophils % Seg Neuts % (Manual) 76.0 H Lymphocytes % (Manual) Monocytes % (Manual) Nucleated RBC % 8.0 H Seg Neutrophils # Seg Neutrophils # Man 13.4 H Lymphocytes # (Manual) Monocytes # (Manual) PT INR APTT Fibrinogen D-Dimer ABG pH POC ABG pCO2 POC ABG pO2 ABG pO2 ABG HCO3 ABG Base Excess ABG Hemoglobin ABG Oxyhemoglobin ABG Sodium ABG Potassium ABG Chloride ABG Glucose VBG pH Oxyhemoglobin Carboxyhemoglobin Sodium Potassium Chloride Carbon Dioxide 19 L BUN Creatinine 1.4 H Glucose 306 H POC Glucose Lactic Acid 10.50 H* Calcium 6.4 L Ionized Calcium Phosphorus Magnesium AST ALT Alkaline Phosphatase Lactate Dehydrogenase NT-Pro-B Natriuret Pep Total Protein Albumin Arterial Blood Glucose Arterial Blood Ionized Calcium Urine WBC (Auto) Vancomycin Trough Phenytoin Crossmatch 10/03/20 10/03/20 10/03/20 02:42 03:59 05:31 WBC RBC Hgb Hct MCV MCH MCHC RDW Plt Count Lymph % (Auto) Turner % (Auto) Lymph # (Auto) Turner # (Auto) Baso # (Auto) Seg Neutrophils % Seg Neuts % (Manual) Lymphocytes % (Manual) Monocytes % (Manual) Nucleated RBC % Seg Neutrophils # Seg Neutrophils # Man Lymphocytes # (Manual) Monocytes # (Manual) PT INR APTT Fibrinogen D-Dimer ABG pH 7.144 L POC ABG pCO2 54.4 H POC ABG pO2 ABG pO2 ABG HCO3 ABG Base Excess ABG Hemoglobin 10.0 L ABG Oxyhemoglobin ABG Sodium ABG Potassium ABG Chloride 108.0 H ABG Glucose 306 H VBG pH Oxyhemoglobin Carboxyhemoglobin Sodium Potassium Chloride Carbon Dioxide BUN Creatinine Glucose POC Glucose 209 H Lactic Acid 9.20 H* Calcium Ionized Calcium Phosphorus Magnesium AST ALT Alkaline Phosphatase Lactate Dehydrogenase NT-Pro-B Natriuret Pep Total Protein Albumin Arterial Blood Glucose 306 H Arterial Blood Ionized Calcium 3.7 L Urine WBC (Auto) Vancomycin Trough Phenytoin Crossmatch 10/03/20 10/03/20 10/03/20 09:00 09:00 09:00 WBC 27.4 H RBC 2.84 L Hgb 8.5 L Hct 25.1 L MCV MCH MCHC RDW 16.1 H Plt Count 72 L Lymph % (Auto) Turner % (Auto) Lymph # (Auto) Turner # (Auto) Baso # (Auto) Seg Neutrophils % Seg Neuts % (Manual) Lymphocytes % (Manual) 11.0 L Monocytes % (Manual) Nucleated RBC % 3.0 H Seg Neutrophils # Seg Neutrophils # Man 18.4 H Lymphocytes # (Manual) Monocytes # (Manual) 1.9 H PT INR APTT Fibrinogen D-Dimer ABG pH POC ABG pCO2 POC ABG pO2 ABG pO2 ABG HCO3 ABG Base Excess ABG Hemoglobin ABG Oxyhemoglobin ABG Sodium ABG Potassium ABG Chloride ABG Glucose VBG pH Oxyhemoglobin Carboxyhemoglobin Sodium Potassium Chloride Carbon Dioxide BUN Creatinine 1.7 H Glucose 216 H POC Glucose Lactic Acid 9.20 H* Calcium 6.3 L Ionized Calcium Phosphorus Magnesium AST 331 H ALT 171 H Alkaline Phosphatase Lactate Dehydrogenase NT-Pro-B Natriuret Pep Total Protein 3.7 L Albumin 1.9 L Arterial Blood Glucose Arterial Blood Ionized Calcium Urine WBC (Auto) Vancomycin Trough Phenytoin Crossmatch 10/03/20 10/03/20 10/03/20 11:20 11:46 11:50 WBC 28.7 H RBC 2.67 L Hgb 8.0 L Hct 23.7 L MCV MCH MCHC RDW 16.6 H Plt Count 76 L Lymph % (Auto) Turner % (Auto) Lymph # (Auto) Turner # (Auto) Baso # (Auto) Seg Neutrophils % Seg Neuts % (Manual) Lymphocytes % (Manual) Monocytes % (Manual) Nucleated RBC % Seg Neutrophils # Seg Neutrophils # Man Lymphocytes # (Manual) Monocytes # (Manual) PT INR APTT Fibrinogen D-Dimer ABG pH POC ABG pCO2 POC ABG pO2 ABG pO2 ABG HCO3 ABG Base Excess ABG Hemoglobin ABG Oxyhemoglobin ABG Sodium ABG Potassium ABG Chloride ABG Glucose VBG pH Oxyhemoglobin Carboxyhemoglobin Sodium Potassium Chloride Carbon Dioxide BUN Creatinine Glucose POC Glucose 125 H Lactic Acid 8.00 H* Calcium Ionized Calcium Phosphorus Magnesium AST ALT Alkaline Phosphatase Lactate Dehydrogenase NT-Pro-B Natriuret Pep Total Protein Albumin Arterial Blood Glucose Arterial Blood Ionized Calcium Urine WBC (Auto) Vancomycin Trough Phenytoin Crossmatch 10/03/20 10/04/20 10/04/20 11:50 00:40 00:40 WBC RBC Hgb 6.8 L Hct 19.4 L* MCV MCH MCHC RDW Plt Count 49 L Lymph % (Auto) Turner % (Auto) Lymph # (Auto) Turner # (Auto) Baso # (Auto) Seg Neutrophils % Seg Neuts % (Manual) Lymphocytes % (Manual) Monocytes % (Manual) Nucleated RBC % Seg Neutrophils # Seg Neutrophils # Man Lymphocytes # (Manual) Monocytes # (Manual) PT INR APTT Fibrinogen D-Dimer ABG pH 7.244 L POC ABG pCO2 POC ABG pO2 ABG pO2 ABG HCO3 ABG Base Excess -4.5 L ABG Hemoglobin 7.3 L ABG Oxyhemoglobin ABG Sodium ABG Potassium ABG Chloride ABG Glucose VBG pH Oxyhemoglobin Carboxyhemoglobin Sodium Potassium Chloride Carbon Dioxide BUN Creatinine Glucose POC Glucose Lactic Acid Calcium Ionized Calcium Phosphorus Magnesium AST ALT Alkaline Phosphatase Lactate Dehydrogenase NT-Pro-B Natriuret Pep Total Protein Albumin Arterial Blood Glucose Arterial Blood Ionized Calcium Urine WBC (Auto) Vancomycin Trough Phenytoin Crossmatch 10/04/20 10/04/20 10/04/20 03:53 10:00 10:00 WBC 14.6 H RBC 2.57 L Hgb 7.6 L Hct 22.5 L MCV MCH MCHC RDW 15.8 H Plt Count 38 L Lymph % (Auto) 7.7 L Turner % (Auto) Lymph # (Auto) 1.1 L Turner # (Auto) 0.9 H Baso # (Auto) Seg Neutrophils % 85.6 H Seg Neuts % (Manual) Lymphocytes % (Manual) Monocytes % (Manual) Nucleated RBC % Seg Neutrophils # 12.5 H Seg Neutrophils # Man Lymphocytes # (Manual) Monocytes # (Manual) PT INR APTT Fibrinogen D-Dimer ABG pH POC ABG pCO2 POC ABG pO2 110.6 H ABG pO2 ABG HCO3 ABG Base Excess ABG Hemoglobin 6.7 L ABG Oxyhemoglobin ABG Sodium 132.0 L ABG Potassium ABG Chloride ABG Glucose 111 H VBG pH Oxyhemoglobin Carboxyhemoglobin Sodium 134 L D Potassium Chloride 97.6 L Carbon Dioxide BUN Creatinine 1.7 H Glucose POC Glucose Lactic Acid Calcium 6.3 L Ionized Calcium Phosphorus Magnesium AST 203 H ALT 81 H Alkaline Phosphatase Lactate Dehydrogenase NT-Pro-B Natriuret Pep Total Protein 3.9 L Albumin 2.3 L Arterial Blood Glucose 111 H Arterial Blood Ionized Calcium 3.5 L Urine WBC (Auto) Vancomycin Trough Phenytoin Crossmatch 10/04/20 10/04/20 10/04/20 10:00 10:00 10:14 WBC RBC Hgb Hct MCV MCH MCHC RDW Plt Count Lymph % (Auto) Turner % (Auto) Lymph # (Auto) Turner # (Auto) Baso # (Auto) Seg Neutrophils % Seg Neuts % (Manual) Lymphocytes % (Manual) Monocytes % (Manual) Nucleated RBC % Seg Neutrophils # Seg Neutrophils # Man Lymphocytes # (Manual) Monocytes # (Manual) PT INR APTT Fibrinogen D-Dimer > 78019 H ABG pH POC ABG pCO2 POC ABG pO2 ABG pO2 ABG HCO3 ABG Base Excess ABG Hemoglobin ABG Oxyhemoglobin ABG Sodium ABG Potassium ABG Chloride ABG Glucose VBG pH Oxyhemoglobin Carboxyhemoglobin Sodium Potassium Chloride Carbon Dioxide BUN Creatinine Glucose POC Glucose Lactic Acid 3.90 H* Calcium Ionized Calcium Phosphorus Magnesium AST ALT Alkaline Phosphatase Lactate Dehydrogenase NT-Pro-B Natriuret Pep 2788 H Total Protein Albumin Arterial Blood Glucose Arterial Blood Ionized Calcium Urine WBC (Auto) Vancomycin Trough Phenytoin Crossmatch 10/04/20 10/04/20 10/04/20 14:00 14:00 18:00 WBC 15.7 H RBC 3.17 L Hgb 9.3 L 9.6 L Hct 27.2 L 28.0 L MCV MCH MCHC RDW 16.9 H Plt Count 41 L Lymph % (Auto) 8.6 L Turner % (Auto) Lymph # (Auto) Turner # (Auto) 0.9 H Baso # (Auto) Seg Neutrophils % 85.4 H Seg Neuts % (Manual) Lymphocytes % (Manual) Monocytes % (Manual) Nucleated RBC % Seg Neutrophils # 13.4 H Seg Neutrophils # Man Lymphocytes # (Manual) Monocytes # (Manual) PT INR APTT Fibrinogen D-Dimer ABG pH POC ABG pCO2 POC ABG pO2 ABG pO2 ABG HCO3 ABG Base Excess ABG Hemoglobin ABG Oxyhemoglobin ABG Sodium ABG Potassium ABG Chloride ABG Glucose VBG pH Oxyhemoglobin Carboxyhemoglobin Sodium 133 L Potassium Chloride 96.4 L Carbon Dioxide BUN 18 H Creatinine 1.7 H Glucose POC Glucose Lactic Acid Calcium 6.3 L Ionized Calcium Phosphorus Magnesium AST ALT Alkaline Phosphatase Lactate Dehydrogenase NT-Pro-B Natriuret Pep Total Protein Albumin Arterial Blood Glucose Arterial Blood Ionized Calcium Urine WBC (Auto) Vancomycin Trough Phenytoin Crossmatch 10/04/20 10/04/20 10/05/20 18:00 22:00 05:00 WBC 17.6 H RBC 3.34 L Hgb 9.9 L Hct 29.4 L MCV MCH MCHC RDW 17.1 H Plt Count 56 L Lymph % (Auto) 8.5 L Turner % (Auto) Lymph # (Auto) Turner # (Auto) 1.0 H Baso # (Auto) Seg Neutrophils % 85.1 H Seg Neuts % (Manual) Lymphocytes % (Manual) Monocytes % (Manual) Nucleated RBC % Seg Neutrophils # 15.0 H Seg Neutrophils # Man Lymphocytes # (Manual) Monocytes # (Manual) PT INR APTT Fibrinogen D-Dimer ABG pH POC ABG pCO2 POC ABG pO2 ABG pO2 ABG HCO3 ABG Base Excess ABG Hemoglobin ABG Oxyhemoglobin ABG Sodium ABG Potassium ABG Chloride ABG Glucose VBG pH Oxyhemoglobin Carboxyhemoglobin Sodium 136 L Potassium Chloride Carbon Dioxide BUN 18 H Creatinine 1.7 H Glucose POC Glucose Lactic Acid 2.30 H* Calcium 6.6 L Ionized Calcium Phosphorus Magnesium AST ALT Alkaline Phosphatase Lactate Dehydrogenase NT-Pro-B Natriuret Pep Total Protein Albumin Arterial Blood Glucose Arterial Blood Ionized Calcium Urine WBC (Auto) Vancomycin Trough Phenytoin Crossmatch 10/05/20 10/05/20 10/05/20 05:00 05:00 05:03 WBC RBC Hgb Hct MCV MCH MCHC RDW Plt Count Lymph % (Auto) Turner % (Auto) Lymph # (Auto) Turner # (Auto) Baso # (Auto) Seg Neutrophils % Seg Neuts % (Manual) Lymphocytes % (Manual) Monocytes % (Manual) Nucleated RBC % Seg Neutrophils # Seg Neutrophils # Man Lymphocytes # (Manual) Monocytes # (Manual) PT INR APTT Fibrinogen D-Dimer ABG pH 7.458 H POC ABG pCO2 POC ABG pO2 ABG pO2 74.3 L ABG HCO3 27.5 H ABG Base Excess 3.4 H ABG Hemoglobin 10.0 L ABG Oxyhemoglobin ABG Sodium ABG Potassium ABG Chloride ABG Glucose VBG pH Oxyhemoglobin 94.9 L Carboxyhemoglobin Sodium Potassium Chloride Carbon Dioxide BUN 19 H Creatinine 1.8 H Glucose POC Glucose Lactic Acid Calcium 6.8 L Ionized Calcium 3.9 L Phosphorus Magnesium AST 225 H ALT 85 H Alkaline Phosphatase Lactate Dehydrogenase NT-Pro-B Natriuret Pep Total Protein 4.5 L Albumin 2.7 L Arterial Blood Glucose Arterial Blood Ionized Calcium Urine WBC (Auto) Vancomycin Trough Phenytoin Crossmatch 10/05/20 10/05/20 10/05/20 10:10 15:00 19:40 WBC RBC Hgb Hct MCV MCH MCHC RDW Plt Count Lymph % (Auto) Turner % (Auto) Lymph # (Auto) Turner # (Auto) Baso # (Auto) Seg Neutrophils % Seg Neuts % (Manual) Lymphocytes % (Manual) Monocytes % (Manual) Nucleated RBC % Seg Neutrophils # Seg Neutrophils # Man Lymphocytes # (Manual) Monocytes # (Manual) PT INR APTT Fibrinogen D-Dimer ABG pH POC ABG pCO2 POC ABG pO2 ABG pO2 ABG HCO3 ABG Base Excess ABG Hemoglobin ABG Oxyhemoglobin ABG Sodium ABG Potassium ABG Chloride ABG Glucose VBG pH Oxyhemoglobin Carboxyhemoglobin Sodium Potassium 3.5 L Chloride Carbon Dioxide 31 H 32 H BUN 19 H 19 H Creatinine 1.8 H 1.8 H Glucose POC Glucose Lactic Acid Calcium 7.0 L 7.2 L Ionized Calcium Phosphorus Magnesium 2.90 H AST ALT Alkaline Phosphatase Lactate Dehydrogenase NT-Pro-B Natriuret Pep Total Protein Albumin Arterial Blood Glucose Arterial Blood Ionized Calcium Urine WBC (Auto) Vancomycin Trough Phenytoin Crossmatch 10/06/20 10/06/20 10/06/20 01:05 03:12 04:00 WBC 17.1 H RBC 3.47 L Hgb Hct MCV MCH MCHC RDW 17.4 H Plt Count 82 L Lymph % (Auto) 8.3 L Turner % (Auto) Lymph # (Auto) Turner # (Auto) 1.1 H Baso # (Auto) Seg Neutrophils % 83.8 H Seg Neuts % (Manual) Lymphocytes % (Manual) Monocytes % (Manual) Nucleated RBC % Seg Neutrophils # 14.3 H Seg Neutrophils # Man Lymphocytes # (Manual) Monocytes # (Manual) PT INR APTT Fibrinogen D-Dimer ABG pH 7.474 H POC ABG pCO2 POC ABG pO2 129.5 H ABG pO2 ABG HCO3 ABG Base Excess ABG Hemoglobin 11.4 L ABG Oxyhemoglobin ABG Sodium 131.8 L ABG Potassium ABG Chloride ABG Glucose 103 H VBG pH Oxyhemoglobin Carboxyhemoglobin 0.3 L Sodium Potassium Chloride Carbon Dioxide BUN Creatinine Glucose POC Glucose Lactic Acid Calcium Ionized Calcium Phosphorus Magnesium 3.70 H AST ALT Alkaline Phosphatase Lactate Dehydrogenase NT-Pro-B Natriuret Pep Total Protein Albumin Arterial Blood Glucose 103 H Arterial Blood Ionized Calcium 4.2 L Urine WBC (Auto) Vancomycin Trough Phenytoin Crossmatch 10/06/20 10/06/20 10/06/20 04:00 05:31 08:12 WBC RBC Hgb Hct MCV MCH MCHC RDW Plt Count Lymph % (Auto) Turner % (Auto) Lymph # (Auto) Turner # (Auto) Baso # (Auto) Seg Neutrophils % Seg Neuts % (Manual) Lymphocytes % (Manual) Monocytes % (Manual) Nucleated RBC % Seg Neutrophils # Seg Neutrophils # Man Lymphocytes # (Manual) Monocytes # (Manual) PT INR APTT Fibrinogen D-Dimer ABG pH POC ABG pCO2 POC ABG pO2 ABG pO2 ABG HCO3 ABG Base Excess ABG Hemoglobin ABG Oxyhemoglobin ABG Sodium ABG Potassium ABG Chloride ABG Glucose VBG pH Oxyhemoglobin Carboxyhemoglobin Sodium Potassium 3.5 L Chloride Carbon Dioxide BUN 19 H Creatinine 1.8 H Glucose 102 H POC Glucose 116 H Lactic Acid Calcium 7.2 L Ionized Calcium Phosphorus Magnesium 5.40 H AST 307 H ALT 137 H Alkaline Phosphatase Lactate Dehydrogenase NT-Pro-B Natriuret Pep Total Protein 4.5 L Albumin 2.6 L Arterial Blood Glucose Arterial Blood Ionized Calcium Urine WBC (Auto) Vancomycin Trough Phenytoin Crossmatch 10/06/20 10/06/20 10/06/20 11:00 11:50 20:13 WBC RBC Hgb Hct MCV MCH MCHC RDW Plt Count Lymph % (Auto) Turner % (Auto) Lymph # (Auto) Turner # (Auto) Baso # (Auto) Seg Neutrophils % Seg Neuts % (Manual) Lymphocytes % (Manual) Monocytes % (Manual) Nucleated RBC % Seg Neutrophils # Seg Neutrophils # Man Lymphocytes # (Manual) Monocytes # (Manual) PT INR APTT Fibrinogen D-Dimer ABG pH POC ABG pCO2 POC ABG pO2 ABG pO2 ABG HCO3 ABG Base Excess ABG Hemoglobin ABG Oxyhemoglobin ABG Sodium ABG Potassium ABG Chloride ABG Glucose VBG pH Oxyhemoglobin Carboxyhemoglobin Sodium Potassium Chloride Carbon Dioxide BUN Creatinine Glucose POC Glucose 106 H Lactic Acid Calcium Ionized Calcium Phosphorus Magnesium 6.50 H 6.20 H AST ALT Alkaline Phosphatase Lactate Dehydrogenase NT-Pro-B Natriuret Pep Total Protein Albumin Arterial Blood Glucose Arterial Blood Ionized Calcium Urine WBC (Auto) Vancomycin Trough Phenytoin Crossmatch 10/06/20 10/06/20 10/06/20 20:17 22:29 23:57 WBC RBC Hgb Hct MCV MCH MCHC RDW Plt Count Lymph % (Auto) Turner % (Auto) Lymph # (Auto) Turner # (Auto) Baso # (Auto) Seg Neutrophils % Seg Neuts % (Manual) Lymphocytes % (Manual) Monocytes % (Manual) Nucleated RBC % Seg Neutrophils # Seg Neutrophils # Man Lymphocytes # (Manual) Monocytes # (Manual) PT INR APTT Fibrinogen D-Dimer ABG pH POC ABG pCO2 POC ABG pO2 ABG pO2 ABG HCO3 ABG Base Excess ABG Hemoglobin ABG Oxyhemoglobin ABG Sodium ABG Potassium ABG Chloride ABG Glucose VBG pH Oxyhemoglobin Carboxyhemoglobin Sodium Potassium Chloride Carbon Dioxide BUN Creatinine Glucose POC Glucose 112 H 126 H 133 H Lactic Acid Calcium Ionized Calcium Phosphorus Magnesium AST ALT Alkaline Phosphatase Lactate Dehydrogenase NT-Pro-B Natriuret Pep Total Protein Albumin Arterial Blood Glucose Arterial Blood Ionized Calcium Urine WBC (Auto) Vancomycin Trough Phenytoin Crossmatch 10/07/20 10/07/20 10/07/20 00:35 02:22 03:16 WBC RBC Hgb Hct MCV MCH MCHC RDW Plt Count Lymph % (Auto) Turner % (Auto) Lymph # (Auto) Turner # (Auto) Baso # (Auto) Seg Neutrophils % Seg Neuts % (Manual) Lymphocytes % (Manual) Monocytes % (Manual) Nucleated RBC % Seg Neutrophils # Seg Neutrophils # Man Lymphocytes # (Manual) Monocytes # (Manual) PT INR APTT Fibrinogen D-Dimer ABG pH POC ABG pCO2 POC ABG pO2 ABG pO2 ABG HCO3 ABG Base Excess ABG Hemoglobin 11.6 L ABG Oxyhemoglobin ABG Sodium ABG Potassium ABG Chloride ABG Glucose 156 H VBG pH Oxyhemoglobin Carboxyhemoglobin 0.3 L Sodium Potassium Chloride Carbon Dioxide BUN Creatinine Glucose POC Glucose 124 H Lactic Acid Calcium Ionized Calcium Phosphorus Magnesium 5.90 H AST ALT Alkaline Phosphatase Lactate Dehydrogenase NT-Pro-B Natriuret Pep Total Protein Albumin Arterial Blood Glucose 156 H Arterial Blood Ionized Calcium 4.2 L Urine WBC (Auto) Vancomycin Trough Phenytoin Crossmatch 10/07/20 10/07/20 10/07/20 04:06 05:45 07:05 WBC 19.2 H RBC 3.57 L Hgb Hct MCV MCH MCHC 35 H RDW 17.1 H Plt Count 129 L Lymph % (Auto) Turner % (Auto) Lymph # (Auto) Turner # (Auto) Baso # (Auto) Seg Neutrophils % Seg Neuts % (Manual) 94.0 H Lymphocytes % (Manual) 6.0 L Monocytes % (Manual) Nucleated RBC % Seg Neutrophils # Seg Neutrophils # Man 18.0 H Lymphocytes # (Manual) Monocytes # (Manual) PT INR APTT Fibrinogen D-Dimer ABG pH POC ABG pCO2 POC ABG pO2 ABG pO2 ABG HCO3 ABG Base Excess ABG Hemoglobin ABG Oxyhemoglobin ABG Sodium ABG Potassium ABG Chloride ABG Glucose VBG pH Oxyhemoglobin Carboxyhemoglobin Sodium Potassium Chloride Carbon Dioxide BUN Creatinine Glucose POC Glucose 135 H 149 H Lactic Acid Calcium Ionized Calcium Phosphorus Magnesium AST ALT Alkaline Phosphatase Lactate Dehydrogenase NT-Pro-B Natriuret Pep Total Protein Albumin Arterial Blood Glucose Arterial Blood Ionized Calcium Urine WBC (Auto) Vancomycin Trough Phenytoin Crossmatch 10/07/20 10/07/20 10/07/20 07:05 07:05 12:21 WBC RBC Hgb Hct MCV MCH MCHC RDW Plt Count Lymph % (Auto) Turner % (Auto) Lymph # (Auto) Turner # (Auto) Baso # (Auto) Seg Neutrophils % Seg Neuts % (Manual) Lymphocytes % (Manual) Monocytes % (Manual) Nucleated RBC % Seg Neutrophils # Seg Neutrophils # Man Lymphocytes # (Manual) Monocytes # (Manual) PT INR APTT Fibrinogen D-Dimer ABG pH POC ABG pCO2 POC ABG pO2 ABG pO2 ABG HCO3 ABG Base Excess ABG Hemoglobin ABG Oxyhemoglobin ABG Sodium ABG Potassium ABG Chloride ABG Glucose VBG pH Oxyhemoglobin Carboxyhemoglobin Sodium Potassium Chloride Carbon Dioxide BUN 21 H Creatinine 1.7 H Glucose 171 H POC Glucose 124 H Lactic Acid Calcium 7.4 L Ionized Calcium Phosphorus Magnesium 6.10 H AST 245 H ALT 147 H Alkaline Phosphatase Lactate Dehydrogenase NT-Pro-B Natriuret Pep Total Protein 5.3 L Albumin 2.8 L Arterial Blood Glucose Arterial Blood Ionized Calcium Urine WBC (Auto) Vancomycin Trough Phenytoin Crossmatch 10/07/20 10/07/20 10/07/20 19:52 21:00 21:50 WBC RBC Hgb Hct MCV MCH MCHC RDW Plt Count Lymph % (Auto) Turner % (Auto) Lymph # (Auto) Turner # (Auto) Baso # (Auto) Seg Neutrophils % Seg Neuts % (Manual) Lymphocytes % (Manual) Monocytes % (Manual) Nucleated RBC % Seg Neutrophils # Seg Neutrophils # Man Lymphocytes # (Manual) Monocytes # (Manual) PT INR APTT Fibrinogen D-Dimer ABG pH POC ABG pCO2 POC ABG pO2 ABG pO2 ABG HCO3 ABG Base Excess ABG Hemoglobin ABG Oxyhemoglobin ABG Sodium ABG Potassium ABG Chloride ABG Glucose VBG pH Oxyhemoglobin Carboxyhemoglobin Sodium Potassium Chloride Carbon Dioxide BUN Creatinine Glucose POC Glucose 193 H 138 H Lactic Acid Calcium Ionized Calcium 4.4 L Phosphorus Magnesium AST ALT Alkaline Phosphatase Lactate Dehydrogenase NT-Pro-B Natriuret Pep Total Protein Albumin Arterial Blood Glucose Arterial Blood Ionized Calcium Urine WBC (Auto) Vancomycin Trough Phenytoin Crossmatch 10/07/20 10/08/20 10/08/20 23:41 04:20 05:30 WBC RBC Hgb Hct MCV MCH MCHC RDW Plt Count Lymph % (Auto) Turner % (Auto) Lymph # (Auto) Turner # (Auto) Baso # (Auto) Seg Neutrophils % Seg Neuts % (Manual) Lymphocytes % (Manual) Monocytes % (Manual) Nucleated RBC % Seg Neutrophils # Seg Neutrophils # Man Lymphocytes # (Manual) Monocytes # (Manual) PT INR APTT Fibrinogen D-Dimer ABG pH 7.467 H POC ABG pCO2 POC ABG pO2 189.8 H ABG pO2 ABG HCO3 ABG Base Excess ABG Hemoglobin 10.8 L ABG Oxyhemoglobin ABG Sodium ABG Potassium ABG Chloride ABG Glucose 133 H VBG pH Oxyhemoglobin Carboxyhemoglobin Sodium Potassium Chloride Carbon Dioxide BUN Creatinine Glucose POC Glucose 118 H 114 H Lactic Acid Calcium Ionized Calcium Phosphorus Magnesium AST ALT Alkaline Phosphatase Lactate Dehydrogenase NT-Pro-B Natriuret Pep Total Protein Albumin Arterial Blood Glucose 133 H Arterial Blood Ionized Calcium 4.2 L Urine WBC (Auto) Vancomycin Trough Phenytoin Crossmatch 10/08/20 10/08/20 10/08/20 05:43 06:42 06:42 WBC 23.6 H RBC 3.54 L Hgb Hct MCV MCH MCHC RDW 17.8 H Plt Count Lymph % (Auto) Turner % (Auto) Lymph # (Auto) Turner # (Auto) Baso # (Auto) Seg Neutrophils % Seg Neuts % (Manual) 93.0 H Lymphocytes % (Manual) 3.0 L Monocytes % (Manual) Nucleated RBC % 1.0 H Seg Neutrophils # Seg Neutrophils # Man 21.9 H Lymphocytes # (Manual) 0.7 L Monocytes # (Manual) 0.9 H PT INR APTT Fibrinogen D-Dimer ABG pH POC ABG pCO2 POC ABG pO2 ABG pO2 ABG HCO3 ABG Base Excess ABG Hemoglobin ABG Oxyhemoglobin ABG Sodium ABG Potassium ABG Chloride ABG Glucose VBG pH Oxyhemoglobin Carboxyhemoglobin Sodium Potassium Chloride Carbon Dioxide BUN 28 H Creatinine 1.6 H Glucose 141 H POC Glucose 126 H Lactic Acid Calcium 7.6 L Ionized Calcium Phosphorus Magnesium AST 162 H ALT 103 H Alkaline Phosphatase Lactate Dehydrogenase NT-Pro-B Natriuret Pep Total Protein 5.4 L Albumin 2.7 L Arterial Blood Glucose Arterial Blood Ionized Calcium Urine WBC (Auto) Vancomycin Trough Phenytoin Crossmatch 10/08/20 10/08/20 10/08/20 11:20 16:05 20:14 WBC RBC Hgb Hct MCV MCH MCHC RDW Plt Count Lymph % (Auto) Turner % (Auto) Lymph # (Auto) Turner # (Auto) Baso # (Auto) Seg Neutrophils % Seg Neuts % (Manual) Lymphocytes % (Manual) Monocytes % (Manual) Nucleated RBC % Seg Neutrophils # Seg Neutrophils # Man Lymphocytes # (Manual) Monocytes # (Manual) PT INR APTT Fibrinogen D-Dimer ABG pH POC ABG pCO2 POC ABG pO2 ABG pO2 ABG HCO3 ABG Base Excess ABG Hemoglobin ABG Oxyhemoglobin ABG Sodium ABG Potassium ABG Chloride ABG Glucose VBG pH Oxyhemoglobin Carboxyhemoglobin Sodium Potassium Chloride Carbon Dioxide BUN Creatinine Glucose POC Glucose 127 H 172 H 147 H Lactic Acid Calcium Ionized Calcium Phosphorus Magnesium AST ALT Alkaline Phosphatase Lactate Dehydrogenase NT-Pro-B Natriuret Pep Total Protein Albumin Arterial Blood Glucose Arterial Blood Ionized Calcium Urine WBC (Auto) Vancomycin Trough Phenytoin Crossmatch 10/08/20 10/08/20 10/09/20 21:27 23:24 02:10 WBC RBC Hgb Hct MCV MCH MCHC RDW Plt Count Lymph % (Auto) Turner % (Auto) Lymph # (Auto) Turner # (Auto) Baso # (Auto) Seg Neutrophils % Seg Neuts % (Manual) Lymphocytes % (Manual) Monocytes % (Manual) Nucleated RBC % Seg Neutrophils # Seg Neutrophils # Man Lymphocytes # (Manual) Monocytes # (Manual) PT INR APTT Fibrinogen D-Dimer ABG pH POC ABG pCO2 POC ABG pO2 ABG pO2 ABG HCO3 ABG Base Excess ABG Hemoglobin ABG Oxyhemoglobin ABG Sodium ABG Potassium ABG Chloride ABG Glucose VBG pH Oxyhemoglobin Carboxyhemoglobin Sodium Potassium Chloride Carbon Dioxide BUN Creatinine Glucose POC Glucose 140 H 135 H 111 H Lactic Acid Calcium Ionized Calcium Phosphorus Magnesium AST ALT Alkaline Phosphatase Lactate Dehydrogenase NT-Pro-B Natriuret Pep Total Protein Albumin Arterial Blood Glucose Arterial Blood Ionized Calcium Urine WBC (Auto) Vancomycin Trough Phenytoin Crossmatch 10/09/20 10/09/20 10/09/20 03:44 04:39 05:46 WBC 19.7 H RBC 3.51 L Hgb Hct MCV MCH MCHC RDW 17.7 H Plt Count Lymph % (Auto) Turner % (Auto) Lymph # (Auto) Turner # (Auto) Baso # (Auto) Seg Neutrophils % Seg Neuts % (Manual) 86.0 H Lymphocytes % (Manual) 4.0 L Monocytes % (Manual) 9.0 H Nucleated RBC % Seg Neutrophils # Seg Neutrophils # Man 16.9 H Lymphocytes # (Manual) 0.8 L Monocytes # (Manual) 1.8 H PT INR APTT Fibrinogen D-Dimer ABG pH 7.513 H POC ABG pCO2 POC ABG pO2 33.6 L ABG pO2 ABG HCO3 ABG Base Excess ABG Hemoglobin 11.1 L ABG Oxyhemoglobin 70.2 L ABG Sodium ABG Potassium 3.2 L ABG Chloride 108.0 H ABG Glucose 108 H VBG pH Oxyhemoglobin Carboxyhemoglobin Sodium Potassium Chloride Carbon Dioxide BUN Creatinine Glucose POC Glucose 109 H Lactic Acid Calcium Ionized Calcium Phosphorus Magnesium AST ALT Alkaline Phosphatase Lactate Dehydrogenase NT-Pro-B Natriuret Pep Total Protein Albumin Arterial Blood Glucose 108 H Arterial Blood Ionized Calcium 4.3 L Urine WBC (Auto) Vancomycin Trough Phenytoin Crossmatch 10/09/20 10/10/20 10/10/20 05:46 04:00 04:00 WBC 18.4 H RBC Hgb Hct MCV MCH MCHC RDW 17.5 H Plt Count Lymph % (Auto) 9.8 L Turner % (Auto) 8.8 H Lymph # (Auto) Turner # (Auto) 1.6 H Baso # (Auto) Seg Neutrophils % 80.0 H Seg Neuts % (Manual) Lymphocytes % (Manual) Monocytes % (Manual) Nucleated RBC % Seg Neutrophils # 14.7 H Seg Neutrophils # Man Lymphocytes # (Manual) Monocytes # (Manual) PT INR APTT Fibrinogen D-Dimer ABG pH POC ABG pCO2 POC ABG pO2 ABG pO2 ABG HCO3 ABG Base Excess ABG Hemoglobin ABG Oxyhemoglobin ABG Sodium ABG Potassium ABG Chloride ABG Glucose VBG pH Oxyhemoglobin Carboxyhemoglobin Sodium 146 H Potassium 3.2 L 2.9 L* Chloride 108.9 H 112.6 H Carbon Dioxide BUN 34 H 28 H Creatinine 1.4 H 1.3 H Glucose 109 H 101 H POC Glucose Lactic Acid Calcium 7.6 L 7.8 L Ionized Calcium Phosphorus Magnesium AST 137 H 122 H ALT 99 H 81 H Alkaline Phosphatase Lactate Dehydrogenase NT-Pro-B Natriuret Pep Total Protein 5.1 L 5.2 L Albumin 2.6 L 2.7 L Arterial Blood Glucose Arterial Blood Ionized Calcium Urine WBC (Auto) Vancomycin Trough Phenytoin Crossmatch 10/10/20 10/10/20 10/11/20 04:42 09:50 00:44 WBC RBC Hgb Hct MCV MCH MCHC RDW Plt Count Lymph % (Auto) Turner % (Auto) Lymph # (Auto) Turner # (Auto) Baso # (Auto) Seg Neutrophils % Seg Neuts % (Manual) Lymphocytes % (Manual) Monocytes % (Manual) Nucleated RBC % Seg Neutrophils # Seg Neutrophils # Man Lymphocytes # (Manual) Monocytes # (Manual) PT INR APTT Fibrinogen D-Dimer ABG pH 7.534 H POC ABG pCO2 POC ABG pO2 ABG pO2 95.2 H ABG HCO3 ABG Base Excess ABG Hemoglobin 11.3 L ABG Oxyhemoglobin ABG Sodium ABG Potassium ABG Chloride ABG Glucose VBG pH Oxyhemoglobin Carboxyhemoglobin Sodium Potassium Chloride Carbon Dioxide BUN Creatinine Glucose POC Glucose 109 H 106 H Lactic Acid Calcium Ionized Calcium Phosphorus Magnesium AST ALT Alkaline Phosphatase Lactate Dehydrogenase NT-Pro-B Natriuret Pep Total Protein Albumin Arterial Blood Glucose Arterial Blood Ionized Calcium Urine WBC (Auto) Vancomycin Trough Phenytoin Crossmatch 10/11/20 10/11/20 10/11/20 04:00 04:00 06:08 WBC 27.0 H RBC Hgb Hct MCV MCH MCHC RDW 17.7 H Plt Count Lymph % (Auto) 6.3 L Turner % (Auto) Lymph # (Auto) Turner # (Auto) 1.5 H Baso # (Auto) Seg Neutrophils % 87.1 H Seg Neuts % (Manual) Lymphocytes % (Manual) Monocytes % (Manual) Nucleated RBC % Seg Neutrophils # 23.5 H Seg Neutrophils # Man Lymphocytes # (Manual) Monocytes # (Manual) PT INR APTT Fibrinogen D-Dimer ABG pH POC ABG pCO2 POC ABG pO2 ABG pO2 ABG HCO3 ABG Base Excess ABG Hemoglobin ABG Oxyhemoglobin ABG Sodium ABG Potassium ABG Chloride ABG Glucose VBG pH Oxyhemoglobin Carboxyhemoglobin Sodium Potassium 3.2 L Chloride 110.4 H Carbon Dioxide 19 L BUN 22 H Creatinine Glucose 116 H POC Glucose 107 H Lactic Acid Calcium 7.7 L Ionized Calcium Phosphorus Magnesium 1.60 L AST ALT Alkaline Phosphatase Lactate Dehydrogenase NT-Pro-B Natriuret Pep Total Protein Albumin Arterial Blood Glucose Arterial Blood Ionized Calcium Urine WBC (Auto) Vancomycin Trough Phenytoin Crossmatch 10/11/20 10/11/20 10/12/20 11:41 13:26 03:52 WBC RBC Hgb Hct MCV MCH MCHC RDW Plt Count Lymph % (Auto) Turner % (Auto) Lymph # (Auto) Turner # (Auto) Baso # (Auto) Seg Neutrophils % Seg Neuts % (Manual) Lymphocytes % (Manual) Monocytes % (Manual) Nucleated RBC % Seg Neutrophils # Seg Neutrophils # Man Lymphocytes # (Manual) Monocytes # (Manual) PT INR APTT Fibrinogen D-Dimer ABG pH POC ABG pCO2 POC ABG pO2 ABG pO2 ABG HCO3 ABG Base Excess ABG Hemoglobin ABG Oxyhemoglobin ABG Sodium ABG Potassium ABG Chloride ABG Glucose VBG pH Oxyhemoglobin Carboxyhemoglobin Sodium Potassium Chloride Carbon Dioxide BUN Creatinine Glucose POC Glucose 116 H 114 H Lactic Acid Calcium Ionized Calcium Phosphorus Magnesium AST ALT Alkaline Phosphatase Lactate Dehydrogenase NT-Pro-B Natriuret Pep Total Protein Albumin Arterial Blood Glucose Arterial Blood Ionized Calcium Urine WBC (Auto) 24.0 H Vancomycin Trough Phenytoin Crossmatch 10/12/20 10/12/20 10/12/20 04:24 14:47 21:33 WBC RBC Hgb Hct MCV MCH MCHC RDW Plt Count Lymph % (Auto) Turner % (Auto) Lymph # (Auto) Turner # (Auto) Baso # (Auto) Seg Neutrophils % Seg Neuts % (Manual) Lymphocytes % (Manual) Monocytes % (Manual) Nucleated RBC % Seg Neutrophils # Seg Neutrophils # Man Lymphocytes # (Manual) Monocytes # (Manual) PT INR APTT Fibrinogen D-Dimer ABG pH POC ABG pCO2 POC ABG pO2 ABG pO2 ABG HCO3 ABG Base Excess ABG Hemoglobin ABG Oxyhemoglobin ABG Sodium ABG Potassium ABG Chloride ABG Glucose VBG pH Oxyhemoglobin Carboxyhemoglobin Sodium Potassium Chloride 109.9 H Carbon Dioxide 13 L BUN 18 H Creatinine Glucose 119 H POC Glucose 107 H Lactic Acid Calcium 7.6 L Ionized Calcium Phosphorus Magnesium 1.60 L AST ALT Alkaline Phosphatase Lactate Dehydrogenase NT-Pro-B Natriuret Pep Total Protein Albumin Arterial Blood Glucose Arterial Blood Ionized Calcium Urine WBC (Auto) Vancomycin Trough Phenytoin Crossmatch 10/12/20 10/12/20 10/13/20 Unknown Unknown 07:00 WBC 24.3 H RBC 3.38 L Hgb 9.8 L Hct MCV MCH MCHC RDW 18.7 H Plt Count Lymph % (Auto) Turner % (Auto) Lymph # (Auto) Turner # (Auto) Baso # (Auto) Seg Neutrophils % Seg Neuts % (Manual) 93.5 H Lymphocytes % (Manual) 4.5 L Monocytes % (Manual) Nucleated RBC % Seg Neutrophils # Seg Neutrophils # Man 22.7 H Lymphocytes # (Manual) 1.1 L Monocytes # (Manual) PT INR APTT Fibrinogen D-Dimer ABG pH POC ABG pCO2 POC ABG pO2 ABG pO2 ABG HCO3 ABG Base Excess ABG Hemoglobin ABG Oxyhemoglobin ABG Sodium ABG Potassium ABG Chloride ABG Glucose VBG pH Oxyhemoglobin Carboxyhemoglobin Sodium 135 L D Potassium 3.1 L Chloride Carbon Dioxide 17 L BUN Creatinine Glucose 510 H* POC Glucose Lactic Acid Calcium 7.2 L Ionized Calcium Phosphorus Magnesium AST ALT Alkaline Phosphatase Lactate Dehydrogenase NT-Pro-B Natriuret Pep Total Protein Albumin Arterial Blood Glucose Arterial Blood Ionized Calcium Urine WBC (Auto) Vancomycin Trough Phenytoin 5.7 L Crossmatch 10/13/20 10/13/20 10/13/20 07:00 07:00 07:18 WBC 23.6 H RBC 3.26 L Hgb 9.4 L Hct 28.7 L MCV MCH MCHC RDW 18.3 H Plt Count Lymph % (Auto) Turner % (Auto) Lymph # (Auto) Turner # (Auto) Baso # (Auto) Seg Neutrophils % Seg Neuts % (Manual) Lymphocytes % (Manual) Monocytes % (Manual) Nucleated RBC % Seg Neutrophils # Seg Neutrophils # Man Lymphocytes # (Manual) Monocytes # (Manual) PT INR APTT Fibrinogen D-Dimer ABG pH 7.473 H POC ABG pCO2 20.7 L POC ABG pO2 137.9 H ABG pO2 ABG HCO3 ABG Base Excess ABG Hemoglobin 11.2 L ABG Oxyhemoglobin 98.3 H ABG Sodium 135.9 L ABG Potassium ABG Chloride 111.0 H ABG Glucose 109 H VBG pH Oxyhemoglobin Carboxyhemoglobin 0.3 L Sodium 135 L Potassium 3.5 L Chloride 109.1 H Carbon Dioxide 18 L BUN Creatinine Glucose POC Glucose Lactic Acid Calcium 7.3 L Ionized Calcium Phosphorus Magnesium 1.60 L AST ALT Alkaline Phosphatase Lactate Dehydrogenase NT-Pro-B Natriuret Pep Total Protein Albumin Arterial Blood Glucose 109 H Arterial Blood Ionized Calcium Urine WBC (Auto) Vancomycin Trough Phenytoin Crossmatch 10/14/20 10/14/20 10/15/20 04:00 04:00 05:50 WBC 28.6 H 23.2 H RBC 3.61 L 3.43 L Hgb 9.9 L Hct 30.0 L MCV MCH MCHC RDW 18.3 H 18.2 H Plt Count Lymph % (Auto) Turner % (Auto) Lymph # (Auto) Turner # (Auto) Baso # (Auto) Seg Neutrophils % Seg Neuts % (Manual) 88.0 H 90.0 H Lymphocytes % (Manual) 5.0 L 4.0 L Monocytes % (Manual) Nucleated RBC % Seg Neutrophils # Seg Neutrophils # Man 25.2 H 20.9 H Lymphocytes # (Manual) 0.9 L Monocytes # (Manual) 1.4 H 0.9 H PT INR APTT Fibrinogen D-Dimer ABG pH POC ABG pCO2 POC ABG pO2 ABG pO2 ABG HCO3 ABG Base Excess ABG Hemoglobin ABG Oxyhemoglobin ABG Sodium ABG Potassium ABG Chloride ABG Glucose VBG pH Oxyhemoglobin Carboxyhemoglobin Sodium Potassium Chloride 109.9 H Carbon Dioxide 17 L BUN Creatinine Glucose POC Glucose Lactic Acid Calcium Ionized Calcium Phosphorus Magnesium AST ALT Alkaline Phosphatase Lactate Dehydrogenase NT-Pro-B Natriuret Pep Total Protein Albumin Arterial Blood Glucose Arterial Blood Ionized Calcium Urine WBC (Auto) Vancomycin Trough Phenytoin Crossmatch 10/15/20 10/16/20 10/17/20 05:50 11:57 04:57 WBC 15.2 H RBC 3.43 L Hgb Hct MCV MCH MCHC RDW 18.1 H Plt Count Lymph % (Auto) Turner % (Auto) Lymph # (Auto) Turner # (Auto) Baso # (Auto) Seg Neutrophils % Seg Neuts % (Manual) Lymphocytes % (Manual) Monocytes % (Manual) Nucleated RBC % Seg Neutrophils # Seg Neutrophils # Man Lymphocytes # (Manual) Monocytes # (Manual) PT INR APTT Fibrinogen D-Dimer ABG pH POC ABG pCO2 POC ABG pO2 ABG pO2 ABG HCO3 ABG Base Excess ABG Hemoglobin ABG Oxyhemoglobin ABG Sodium ABG Potassium ABG Chloride ABG Glucose VBG pH Oxyhemoglobin Carboxyhemoglobin Sodium Potassium Chloride 110.3 H Carbon Dioxide 18 L BUN Creatinine Glucose 105 H POC Glucose 111 H Lactic Acid Calcium 8.3 L Ionized Calcium Phosphorus Magnesium AST ALT Alkaline Phosphatase Lactate Dehydrogenase NT-Pro-B Natriuret Pep Total Protein Albumin Arterial Blood Glucose Arterial Blood Ionized Calcium Urine WBC (Auto) Vancomycin Trough Phenytoin Crossmatch 10/17/20 10/17/20 10/18/20 05:25 21:16 01:31 WBC RBC Hgb Hct MCV MCH MCHC RDW Plt Count Lymph % (Auto) Turner % (Auto) Lymph # (Auto) Turner # (Auto) Baso # (Auto) Seg Neutrophils % Seg Neuts % (Manual) Lymphocytes % (Manual) Monocytes % (Manual) Nucleated RBC % Seg Neutrophils # Seg Neutrophils # Man Lymphocytes # (Manual) Monocytes # (Manual) PT INR APTT Fibrinogen D-Dimer ABG pH POC ABG pCO2 POC ABG pO2 ABG pO2 ABG HCO3 ABG Base Excess ABG Hemoglobin ABG Oxyhemoglobin ABG Sodium ABG Potassium ABG Chloride ABG Glucose VBG pH Oxyhemoglobin Carboxyhemoglobin Sodium Potassium Chloride Carbon Dioxide BUN Creatinine Glucose POC Glucose 107 H 106 H 119 H Lactic Acid Calcium Ionized Calcium Phosphorus Magnesium AST ALT Alkaline Phosphatase Lactate Dehydrogenase NT-Pro-B Natriuret Pep Total Protein Albumin Arterial Blood Glucose Arterial Blood Ionized Calcium Urine WBC (Auto) Vancomycin Trough Phenytoin Crossmatch 10/18/20 10/18/20 10/19/20 05:45 11:23 01:14 WBC RBC Hgb Hct MCV MCH MCHC RDW Plt Count Lymph % (Auto) Turner % (Auto) Lymph # (Auto) Turner # (Auto) Baso # (Auto) Seg Neutrophils % Seg Neuts % (Manual) Lymphocytes % (Manual) Monocytes % (Manual) Nucleated RBC % Seg Neutrophils # Seg Neutrophils # Man Lymphocytes # (Manual) Monocytes # (Manual) PT INR APTT Fibrinogen D-Dimer ABG pH POC ABG pCO2 POC ABG pO2 ABG pO2 ABG HCO3 ABG Base Excess ABG Hemoglobin ABG Oxyhemoglobin ABG Sodium ABG Potassium ABG Chloride ABG Glucose VBG pH Oxyhemoglobin Carboxyhemoglobin Sodium Potassium Chloride Carbon Dioxide BUN Creatinine Glucose POC Glucose 106 H 115 H 108 H Lactic Acid Calcium Ionized Calcium Phosphorus Magnesium AST ALT Alkaline Phosphatase Lactate Dehydrogenase NT-Pro-B Natriuret Pep Total Protein Albumin Arterial Blood Glucose Arterial Blood Ionized Calcium Urine WBC (Auto) Vancomycin Trough Phenytoin Crossmatch 10/19/20 10/20/20 10/20/20 09:57 05:40 07:59 WBC RBC Hgb Hct MCV MCH MCHC RDW Plt Count Lymph % (Auto) Turner % (Auto) Lymph # (Auto) Turner # (Auto) Baso # (Auto) Seg Neutrophils % Seg Neuts % (Manual) Lymphocytes % (Manual) Monocytes % (Manual) Nucleated RBC % Seg Neutrophils # Seg Neutrophils # Man Lymphocytes # (Manual) Monocytes # (Manual) PT INR APTT Fibrinogen D-Dimer ABG pH POC ABG pCO2 POC ABG pO2 ABG pO2 ABG HCO3 ABG Base Excess ABG Hemoglobin ABG Oxyhemoglobin ABG Sodium ABG Potassium ABG Chloride ABG Glucose VBG pH Oxyhemoglobin Carboxyhemoglobin Sodium Potassium Chloride Carbon Dioxide BUN Creatinine Glucose 106 H POC Glucose 122 H 109 H Lactic Acid Calcium Ionized Calcium Phosphorus Magnesium AST ALT Alkaline Phosphatase Lactate Dehydrogenase NT-Pro-B Natriuret Pep Total Protein Albumin Arterial Blood Glucose Arterial Blood Ionized Calcium Urine WBC (Auto) Vancomycin Trough Phenytoin Crossmatch 10/20/20 10/20/20 10/21/20 16:52 16:52 13:54 WBC 18.8 H 17.0 H RBC Hgb Hct MCV MCH MCHC RDW 17.7 H 17.8 H Plt Count 547 H 544 H Lymph % (Auto) 11.2 L Turner % (Auto) 8.1 H Lymph # (Auto) Turner # (Auto) 1.5 H Baso # (Auto) 0.2 H Seg Neutrophils % 78.8 H Seg Neuts % (Manual) Lymphocytes % (Manual) Monocytes % (Manual) Nucleated RBC % Seg Neutrophils # 14.8 H Seg Neutrophils # Man Lymphocytes # (Manual) Monocytes # (Manual) PT INR APTT Fibrinogen D-Dimer ABG pH POC ABG pCO2 POC ABG pO2 ABG pO2 ABG HCO3 ABG Base Excess ABG Hemoglobin ABG Oxyhemoglobin ABG Sodium ABG Potassium ABG Chloride ABG Glucose VBG pH Oxyhemoglobin Carboxyhemoglobin Sodium Potassium Chloride Carbon Dioxide BUN Creatinine Glucose POC Glucose Lactic Acid Calcium Ionized Calcium Phosphorus Magnesium AST ALT Alkaline Phosphatase Lactate Dehydrogenase NT-Pro-B Natriuret Pep Total Protein Albumin Arterial Blood Glucose Arterial Blood Ionized Calcium Urine WBC (Auto) Vancomycin Trough 34.5 H Phenytoin Crossmatch 10/21/20 10/22/20 10/23/20 13:54 07:26 05:34 WBC 18.7 H 13.0 H RBC 3.64 L 3.50 L Hgb Hct 30.0 L MCV MCH MCHC 35 H RDW 17.7 H 17.6 H Plt Count 502 H 503 H Lymph % (Auto) Turner % (Auto) Lymph # (Auto) Turner # (Auto) Baso # (Auto) Seg Neutrophils % Seg Neuts % (Manual) Lymphocytes % (Manual) Monocytes % (Manual) Nucleated RBC % Seg Neutrophils # Seg Neutrophils # Man Lymphocytes # (Manual) Monocytes # (Manual) PT INR APTT Fibrinogen D-Dimer ABG pH POC ABG pCO2 POC ABG pO2 ABG pO2 ABG HCO3 ABG Base Excess ABG Hemoglobin ABG Oxyhemoglobin ABG Sodium ABG Potassium ABG Chloride ABG Glucose VBG pH Oxyhemoglobin Carboxyhemoglobin Sodium 136 L Potassium Chloride Carbon Dioxide BUN Creatinine Glucose 120 H POC Glucose Lactic Acid Calcium Ionized Calcium Phosphorus Magnesium AST ALT Alkaline Phosphatase Lactate Dehydrogenase NT-Pro-B Natriuret Pep Total Protein Albumin Arterial Blood Glucose Arterial Blood Ionized Calcium Urine WBC (Auto) Vancomycin Trough Phenytoin Crossmatch 10/23/20 10/26/20 10/27/20 05:34 10:30 07:53 WBC 13.6 H RBC 3.38 L Hgb 10.0 L Hct 28.8 L MCV MCH MCHC 35 H RDW 17.6 H Plt Count Lymph % (Auto) Turner % (Auto) Lymph # (Auto) Turner # (Auto) Baso # (Auto) Seg Neutrophils % Seg Neuts % (Manual) Lymphocytes % (Manual) Monocytes % (Manual) Nucleated RBC % Seg Neutrophils # Seg Neutrophils # Man Lymphocytes # (Manual) Monocytes # (Manual) PT INR APTT Fibrinogen D-Dimer ABG pH 7.459 H POC ABG pCO2 POC ABG pO2 ABG pO2 112.2 H ABG HCO3 ABG Base Excess ABG Hemoglobin ABG Oxyhemoglobin ABG Sodium ABG Potassium ABG Chloride ABG Glucose VBG pH Oxyhemoglobin Carboxyhemoglobin Sodium 135 L Potassium Chloride Carbon Dioxide BUN Creatinine Glucose 105 H POC Glucose Lactic Acid Calcium Ionized Calcium Phosphorus Magnesium AST ALT Alkaline Phosphatase Lactate Dehydrogenase NT-Pro-B Natriuret Pep Total Protein Albumin Arterial Blood Glucose Arterial Blood Ionized Calcium Urine WBC (Auto) Vancomycin Trough Phenytoin Crossmatch 10/27/20 10/27/20 10/28/20 07:53 11:31 05:19 WBC RBC Hgb Hct MCV MCH MCHC RDW Plt Count Lymph % (Auto) Turner % (Auto) Lymph # (Auto) Turner # (Auto) Baso # (Auto) Seg Neutrophils % Seg Neuts % (Manual) Lymphocytes % (Manual) Monocytes % (Manual) Nucleated RBC % Seg Neutrophils # Seg Neutrophils # Man Lymphocytes # (Manual) Monocytes # (Manual) PT INR APTT Fibrinogen D-Dimer ABG pH POC ABG pCO2 POC ABG pO2 ABG pO2 ABG HCO3 ABG Base Excess ABG Hemoglobin ABG Oxyhemoglobin ABG Sodium ABG Potassium ABG Chloride ABG Glucose VBG pH Oxyhemoglobin Carboxyhemoglobin Sodium Potassium Chloride Carbon Dioxide BUN 20 H Creatinine Glucose 112 H POC Glucose 113 H 112 H Lactic Acid Calcium Ionized Calcium Phosphorus Magnesium AST 83 H ALT Alkaline Phosphatase Lactate Dehydrogenase NT-Pro-B Natriuret Pep Total Protein Albumin 3.8 L Arterial Blood Glucose Arterial Blood Ionized Calcium Urine WBC (Auto) Vancomycin Trough Phenytoin Crossmatch 10/29/20 10/29/20 10/29/20 07:56 07:56 11:37 WBC 13.6 H RBC Hgb Hct MCV MCH MCHC RDW 17.0 H Plt Count Lymph % (Auto) Turner % (Auto) Lymph # (Auto) Turner # (Auto) Baso # (Auto) Seg Neutrophils % Seg Neuts % (Manual) 80.0 H Lymphocytes % (Manual) Monocytes % (Manual) Nucleated RBC % Seg Neutrophils # Seg Neutrophils # Man 10.9 H Lymphocytes # (Manual) Monocytes # (Manual) PT INR APTT Fibrinogen D-Dimer ABG pH POC ABG pCO2 POC ABG pO2 ABG pO2 ABG HCO3 ABG Base Excess ABG Hemoglobin ABG Oxyhemoglobin ABG Sodium ABG Potassium ABG Chloride ABG Glucose VBG pH Oxyhemoglobin Carboxyhemoglobin Sodium Potassium Chloride Carbon Dioxide BUN Creatinine Glucose POC Glucose 108 H Lactic Acid Calcium Ionized Calcium Phosphorus 4.70 H Magnesium AST ALT Alkaline Phosphatase Lactate Dehydrogenase NT-Pro-B Natriuret Pep Total Protein Albumin Arterial Blood Glucose Arterial Blood Ionized Calcium Urine WBC (Auto) Vancomycin Trough Phenytoin Crossmatch 10/29/20 10/30/20 10/30/20 13:32 12:11 17:19 WBC RBC Hgb Hct MCV MCH MCHC RDW Plt Count Lymph % (Auto) Turner % (Auto) Lymph # (Auto) Turner # (Auto) Baso # (Auto) Seg Neutrophils % Seg Neuts % (Manual) Lymphocytes % (Manual) Monocytes % (Manual) Nucleated RBC % Seg Neutrophils # Seg Neutrophils # Man Lymphocytes # (Manual) Monocytes # (Manual) PT INR APTT Fibrinogen D-Dimer ABG pH POC ABG pCO2 POC ABG pO2 ABG pO2 ABG HCO3 ABG Base Excess ABG Hemoglobin ABG Oxyhemoglobin ABG Sodium ABG Potassium ABG Chloride ABG Glucose VBG pH Oxyhemoglobin Carboxyhemoglobin Sodium Potassium Chloride Carbon Dioxide BUN Creatinine Glucose POC Glucose 108 H 106 H 107 H Lactic Acid Calcium Ionized Calcium Phosphorus Magnesium AST ALT Alkaline Phosphatase Lactate Dehydrogenase NT-Pro-B Natriuret Pep Total Protein Albumin Arterial Blood Glucose Arterial Blood Ionized Calcium Urine WBC (Auto) Vancomycin Trough Phenytoin Crossmatch 10/31/20 10/31/20 11/01/20 03:20 05:43 04:55 WBC RBC Hgb Hct MCV MCH MCHC RDW Plt Count Lymph % (Auto) Turner % (Auto) Lymph # (Auto) Turner # (Auto) Baso # (Auto) Seg Neutrophils % Seg Neuts % (Manual) Lymphocytes % (Manual) Monocytes % (Manual) Nucleated RBC % Seg Neutrophils # Seg Neutrophils # Man Lymphocytes # (Manual) Monocytes # (Manual) PT INR APTT Fibrinogen D-Dimer ABG pH POC ABG pCO2 POC ABG pO2 ABG pO2 ABG HCO3 ABG Base Excess ABG Hemoglobin ABG Oxyhemoglobin ABG Sodium ABG Potassium ABG Chloride ABG Glucose VBG pH Oxyhemoglobin Carboxyhemoglobin Sodium Potassium Chloride Carbon Dioxide BUN Creatinine Glucose POC Glucose 108 H 115 H 108 H Lactic Acid Calcium Ionized Calcium Phosphorus Magnesium AST ALT Alkaline Phosphatase Lactate Dehydrogenase NT-Pro-B Natriuret Pep Total Protein Albumin Arterial Blood Glucose Arterial Blood Ionized Calcium Urine WBC (Auto) Vancomycin Trough Phenytoin Crossmatch 11/01/20 11/01/20 11/01/20 05:01 16:47 21:36 WBC RBC Hgb Hct MCV MCH MCHC RDW Plt Count Lymph % (Auto) Turner % (Auto) Lymph # (Auto) Turner # (Auto) Baso # (Auto) Seg Neutrophils % Seg Neuts % (Manual) Lymphocytes % (Manual) Monocytes % (Manual) Nucleated RBC % Seg Neutrophils # Seg Neutrophils # Man Lymphocytes # (Manual) Monocytes # (Manual) PT INR APTT Fibrinogen D-Dimer ABG pH POC ABG pCO2 POC ABG pO2 ABG pO2 ABG HCO3 ABG Base Excess ABG Hemoglobin ABG Oxyhemoglobin ABG Sodium ABG Potassium ABG Chloride ABG Glucose VBG pH Oxyhemoglobin Carboxyhemoglobin Sodium 135 L Potassium Chloride Carbon Dioxide BUN Creatinine Glucose POC Glucose 116 H 112 H Lactic Acid Calcium Ionized Calcium Phosphorus Magnesium AST 93 H ALT Alkaline Phosphatase 132 H Lactate Dehydrogenase NT-Pro-B Natriuret Pep Total Protein Albumin 3.6 L Arterial Blood Glucose Arterial Blood Ionized Calcium Urine WBC (Auto) Vancomycin Trough Phenytoin Crossmatch 11/02/20 17:45 WBC RBC Hgb Hct MCV MCH MCHC RDW Plt Count Lymph % (Auto) Turner % (Auto) Lymph # (Auto) Turner # (Auto) Baso # (Auto) Seg Neutrophils % Seg Neuts % (Manual) Lymphocytes % (Manual) Monocytes % (Manual) Nucleated RBC % Seg Neutrophils # Seg Neutrophils # Man Lymphocytes # (Manual) Monocytes # (Manual) PT INR APTT Fibrinogen D-Dimer ABG pH POC ABG pCO2 POC ABG pO2 ABG pO2 ABG HCO3 ABG Base Excess ABG Hemoglobin ABG Oxyhemoglobin ABG Sodium ABG Potassium ABG Chloride ABG Glucose VBG pH Oxyhemoglobin Carboxyhemoglobin Sodium Potassium Chloride Carbon Dioxide BUN Creatinine Glucose POC Glucose 107 H Lactic Acid Calcium Ionized Calcium Phosphorus Magnesium AST ALT Alkaline Phosphatase Lactate Dehydrogenase NT-Pro-B Natriuret Pep Total Protein Albumin Arterial Blood Glucose Arterial Blood Ionized Calcium Urine WBC (Auto) Vancomycin Trough Phenytoin Crossmatch
[2020-11-04] MEDS: SODIUM BICARBONATE 650 MG TAB PO SCH ×4 (02:11→21:12)
[2020-11-04 05:34] LABS: Basophils % (Auto) 0.1 % (0.0-1.8); Eosinophils # (Auto) 0.3 K/mm3 (0.0-0.4); Hematocrit 31.8 % (30.3-42.9); Hemoglobin 10.6 gm/dl (10.1-14.3); Lymphocytes # (Auto) 1.6 K/mm3 (1.2-5.4); Lymphocytes % (Auto) 11.8 % (13.4-35.0); Mean Corpuscular HGB Conc 33 % (30-34); Mean Corpuscular Volume 86 fl (79-97); Monocytes # (Auto) 1.5 K/mm3 (0.0-0.8); Platelet Count 293 K/mm3 (140-440); Red Blood Count 3.72 M/mm3 (3.65-5.03); Red Cell Distribution Width 16.6 % (13.2-15.2)
[2020-11-04 05:51] LABS: Alanine Aminotransferase 36 units/L (7-56); Albumin 3.8 g/dL (3.9-5); Blood Urea Nitrogen 14 mg/dL (7-17); Calcium 8.8 mg/dL (8.4-10.2); Hemolysis Index 11
[2020-11-04 05:54] LABS: BUN/Creatinine Ratio 20
[2020-11-04] MEDS: ACETAMINOPHEN 325 MG/10.15 ML ORAL LIQD UNIT DOSE FEEDTUBE PRN ×2 (06:23→12:47)
[2020-11-04] MEDS: hydrALAZINE 25 MG TAB PO SCH ×3 (06:23→21:11)
[2020-11-04] MEDS: ENOXAPARIN 40 MG/0.4 ML INJ SUB-Q SCH (09:26)
[2020-11-04] MEDS: FUROSEMIDE 40 MG TAB PO SCH (09:26)
[2020-11-04] MEDS: FAMOTIDINE 20 MG TAB PO SCH ×2 (09:26→21:13)
--- NOTE | 2020-11-04 09:40 | Progress Note ---
Assessment and Plan Assessment and plan: COVID-19 negative C. difficile positive; Patient in contact isolation --Afebrile, T-max last 24 hours 100.3 F Blood, urine, tracheal aspirate cultures New cultures negative to date Monitor off antibiotics Closely monitor --Acute hypoxic respiratory failure: Tracheostomy on T-piece , 5 L oxygen, saturating 100% Nebulizers, continue oxygen titrate O2 sats to more than 90% Pulmonary critical following --Sepsis; received antibiotics Continue to monitor off antibiotics ID following --Cardiac arrest; 10/07/2020 ,status post CPR --COVID-19 test negative; 10/08/2020 --C. difficile colitis test; positive; 10/16/2020 --Acute metabolic encephalopathy --Acute hypoxic brain injury; Supportive care, closely monitor --Acute kidney injury; vasomotor nephropathy Resolved, renal function within normal limits, closely monitor --Shock; monitor of pressors Blood pressures reasonable level --DIC; sepsis, septic shock, resolved --History of preeclampsia; / hemorrhage Status post hysterectomy --History of C. difficile colitis; completed oral vancomycin --DVT/SVT and right upper extremity Very poor prognosis, Consults recommendations noted and appreciated We will closely monitor the patient and adjust management as needed Plan of care reviewed with the patient's nurse. Brief history; 30 year old -[place]azi female CHE 10/25/20 at 36w5d who presents with seizures in triage on 10/02/20. Pt was not able to provide history but per pt's , she presented to the hospital to return a 24 hour urine specimen for analysis. She then suddenly reported that she did not feel good. She was taken to labor and delivery and shortly after arrival, she began seizing. During this time, a code met was called because the patient became hypoxic. She was then noted to be without a pulse. Chest compressions were started immediately, and the patient was emergently taken to the operating room for delivery of the fetus. Off note, This patient has had care at [facility] with comanagement by [facility] since 11 wks complicated by ADHD, morbid obesity, general ized anxiety disorder, panic attacks, chronic narcotic use, fibromyalgia, GERD, Irritable Bowel Syndrome, Migraines, h/o endometrial ablation and ovarian vein embolization, genital herpes, insomnia, LGA fetus, nausea and vomiting, polyhydramnios, quad screen positive for Down's Syndrome, and previous x 3. She is GBS negative. , Patient tracheostomy on ventilatory support, unable to wean, continue supportive care poor prognosis 11:30: Pt brought to L&D triage for evaluation of possible labor. Pt accompanied by her spouse. Pt spouse poor historian; unable to obtain history- allergies at this time. Pt taken from registration to triage area via WC. Pt unresponsive, actively seizing with snorous respirations. grounds and nursery specialist, Kassy, called and requesting assistance. 11:35: Multiple staff at bedside. Pt 02 sat 67% on nonrebreather, unable to read BP . Yifan Theodore CRNA, at bedside for intubation and assistance with IV insertion. INT attempt by multiple RNs unsuccessful at this time. 11:42: Pt being bagged by KORIN, 02% 79%. No pulse palpated, compressions on at this time; bharati young called and Dr. Newberry preparing OR for emergent c/s. 11:44: Continued compressions on stretcher while transporting pt to OR 1. Pt being bagged with jaw thrust manuever in place by KORIN Stringer student. 11:45: Arrival to OR 1. Dr. Newberry and Dr. Portillo present for emergent c/s. Code team arrived for continued care. patient revived and c/s done Patient has been bleeding from C/s site followed by supracervical hysterectomy for severe bleeding, Patient transfused multiple units of PRBC, Patient in DIC. Patient transferred to the ICU Hospital course; 10/03. Patient seen and examined at bedside this morning. Patient is nonresponsive and mechanically ventilated. On pressors. Labs reviewed-has leukocytosis, anemia, thrombocytopenia, ADOLPH and lactic acidosis. Started on IV antibiotics to cover possible sepsis secondary to DIC. Hematology oncology recommendations appreciated-needs additional cryoprecipitate and FFP. Monitor D-dimer, fibrinogen and frequent labs. Nephrology consulted for lactic acidosis and ADOLPH. 10/04. Remains mechanically ventilated. Kevin antibiotics. Labs shows improved acidosis - lactic acid 3.5. Hb drop noted. Getting transfused 2 units PRBCs. Platelet count is ~40k. Continue to monitor labs closely. Critical care team on board. 10/05; xray reviewed, concerning for multifocal infilrate, likely underlying Pneumonia, will add ID consult to assist with management of this critically ill patient, start tube feed, closely monitor renal system 10/06: Resumed care, remains on mechanical ventilation. No active bleeding, H&H stable. Continue to monitor CBC and BMP. Continue IV antibiotic for underlying pneumonia. Follow critical care and ID recommendation. 10/07: Remains on mechanical ventilation. No active bleeding, H&H stable. Critical care following, wean off ventilation as tolerated. 10/08: Patient had another cardiac arrest last night. Remains on mechanical ventilation, update family. Continue supportive care -poor prognosis 10/09: Called patient mother and discussed about patient care and management. Answered all question to best of my knowledge and family satisfaction. Patient remains on mechanical ventilation, cardiac arrest x2 so far. Critically sick, poor prognosis 10/10: remains on mechanical ventilation. h/h stable, no active bleeding. monitor CBC/BMP 10/11: WBC trended up with diarrhea, started on vancomycin po. remains on MV, off pressor, tolerating TF 10/12: remains on MV, off pressor, tolerating TF. called family for update but unable to reach, could not leave message as it was full. cont supportive care, wean off vent as tolerated. 10/13/2020; patient is on mechanical ventilation, tolerating tube feeding. Patient has labored breathing. Neuro was consulted and recommend MRI. Patient is on Precedex. Rectal tube in place. 10/14/2020; patient is on mechanical ventilation, Precedex. Patient had fever and blood culture ordered. Patient is on IV vancomycin per ID recommendation. Neuro consulted and recommend MRI. Continue to monitor. Prognosis is guarded. 10/15/2020; patient is on mechanical ventilation, Precedex. Patient had fever and blood culture ordered. Patient is on IV vancomycin per ID recommendation. Neuro consulted and recommend MRI. Continue to monitor. Prognosis is guarded. 1/2: Remains with C.DIFF and Bactermia, Poor prognosis. No purposeful movement. MRI and EEG discussed with Intensvisit, Continue aggressive BP control. 13: Blood pressure better controlled MRI done 10/15 shows mild improvement in edema. We will continue to monitor mother was at bedside yesterday. Nursing documentation trach and PEG discussed with the mother including goals of care. She is still in denial about the gravity of her daughters her condition which is understandable considering her age. Continue aggressive management at this time. Await for bacteremia to clear by ID before placing PICC line. 10/19: Patient for possible PEG and Trach, ID following, repeat cultures remain ne gative. Poor prognosis 10/20: Pt noted to DVT and SVT in the RUE, Vascular consult and will also obtain Hematology for possible considering changing in Anticoagulation. CONTINUE TO MONITOR H/H and PLT. Family updated by [employer]. Heparin gtt started. Will check CBC and BMP 10/21: Continue supporive care, Diarrhea now resolving, But still with persistent Fever, May need repeat CT/AP per ID, still with profused Encephalopathy 10/22: Continue supportive care, weaning, awaiting repeat Imaging. FOLLOW Fever curve. Enoxparin restarted 10/23: Continue supportive care, wean as tolerated. 10/24; Started on CPAP trial, discussed with pulmonary, still with diarrhea. 10/25: Patients seen and examined, no clinical changes, still with diarrhea. ?meaningful recovery. 10/26: Clinically unchanged, continue CPAP trial, Will discuss with Neurology about re-evaluation, ?Need for repeat CT head. ?PRESS considering initial elevated BP, now stable. 10/27; tracheostomy on vent, weaning trials, vital signs noted, poor prognosis 10/28; unable to wean, tracheostomy on vent. Sepsis. Continue current management. Consults and recommendations noted and appreciated 10/30/2020;Patient on T-piece 5 L of oxygen not in acute distress, noncommunicative 11/02/2020; patient on T-piece 5 L of oxygen 11/03/2020; patient's fever slightly improved low-grade, continue current management, remains on T-piece with 5 L of oxygen 11/04/2020; T-max last 24 hours 100.3 F, new cultures negative to date, monitor off antibiotics Patient is off Levophed, blood pressures reasonable level, tracheostomy on T- piece 3 to 5 L nasal cannula oxygen The high probability of a clinically significant, sudden or life threatening deterioration of the [MULTIPLE ORGAN] system(s) required my full and direct attention, intervention and personal management. The aggregate critical care time was [34 ] minutes. This time is in addition to time spent performing reported procedures but includes the following: [X] Data Review and interpretation [X] Patient assessment and monitoring of vital signs [X] Documentation [X] Medication orders and management History Interval history: I have have seen and examined the patient at the bedside in ICU this morning Patient is on contact isolation due to C. difficile Tracheostomy on T-piece 5 L nasal cannula oxygen Patient is noncommunicative, obese Vital signs noted Afebrile Hospitalist Physical - Constitutional Vitals: Temp Pulse Resp BP Pulse Ox 98.7 F 116 H 20 117/68 100 11/04/20 08:00 11/04/20 09:25 11/04/20 06:23 11/04/20 09:25 11/04/20 06:00 General appearance: Present: no acute distress, well-nourished, obese, other (On T-piece 5 L oxygen, noncommunicative) - EENT Eyes: Present: PERRL, EOM intact - Neck Neck: Present: supple, normal ROM - Respiratory Respiratory effort: normal Respiratory: bilateral: diminished, negative: rales, rhonchi, wheezing - Cardiovascular Rhythm: regular Heart Sounds: Present: S1 & S2 - Extremities Extremities: no ischemia Extremity abnormal: edema - Abdominal General gastrointestinal: soft, non-tender, non-distended, normal bowel sounds, other (PEG tube in place) - Integumentary Integumentary: Present: clear, warm - Psychiatric Psychiatric: other - Neurologic Neurologic: other (Noncommunicative noncommunicative unresponsive) HEART Score - HEART Score Age: < 45 Risk factors: 1-2 risk factors - Critical Actions Critical Actions: >7 pts:50-65% risk of adverse cardiac event. Early invasive measures Results - Labs CBC & Chem 7: 11/04/20 05:00 11/04/20 05:00 Labs: Laboratory Last Values WBC 13.8 K/mm3 (4.5-11.0) H 11/04/20 05:00 RBC 3.72 M/mm3 (3.65-5.03) 11/04/20 05:00 Hgb 10.6 gm/dl (10.1-14.3) 11/04/20 05:00 Hgb Comment See scanned result 10/04/20 Unknown Hct 31.8 % (30.3-42.9) 11/04/20 05:00 MCV 86 fl (79-97) 11/04/20 05:00 MCH 28 pg (28-32) 11/04/20 05:00 MCHC 33 % (30-34) 11/04/20 05:00 RDW 16.6 % (13.2-15.2) H 11/04/20 05:00 Plt Count 293 K/mm3 (140-440) 11/04/20 05:00 Lymph % (Auto) 11.8 % (13.4-35.0) L 11/04/20 05:00 Wood % (Auto) 11.0 % (0.0-7.3) H 11/04/20 05:00 Eos % (Auto) 2.0 % (0.0-4.3) 11/04/20 05:00 Baso % (Auto) 0.1 % (0.0-1.8) 11/04/20 05:00 Lymph # (Auto) 1.6 K/mm3 (1.2-5.4) 11/04/20 05:00 Wood # (Auto) 1.5 K/mm3 (0.0-0.8) H 11/04/20 05:00 Eos # (Auto) 0.3 K/mm3 (0.0-0.4) 11/04/20 05:00 Baso # (Auto) 0.0 K/mm3 (0.0-0.1) 11/04/20 05:00 Add Manual Diff Complete 10/29/20 07:56 Total Counted 100 10/29/20 07:56 Seg Neutrophils % 75.1 % (40.0-70.0) H 11/04/20 05:00 Seg Neuts % (Manual) 80.0 % (40.0-70.0) H 10/29/20 07:56 Band Neutrophils % 2.0 % 10/15/20 05:50 Lymphocytes % (Manual) 15.0 % (13.4-35.0) 10/29/20 07:56 Reactive Lymphs % (Man) 1.0 % 10/02/20 12:18 Monocytes % (Manual) 4.0 % (0.0-7.3) 10/29/20 07:56 Eosinophils % (Manual) 1.0 % (0.0-4.3) 10/29/20 07:56 Myelocytes % 2.0 % 10/02/20 13:05 Metamyelocytes % 1.0 % 10/14/20 04:00 Nucleated RBC % Not Reportable 10/29/20 07:56 Seg Neutrophils # 10.4 K/mm3 (1.8-7.7) H 11/04/20 05:00 Seg Neutrophils # Man 10.9 K/mm3 (1.8-7.7) H 10/29/20 07:56 Band Neutrophils # 0.0 K/mm3 10/29/20 07:56 Lymphocytes # (Manual) 2.0 K/mm3 (1.2-5.4) 10/29/20 07:56 Abs React Lymphs (Man) 0.0 K/mm3 10/29/20 07:56 Monocytes # (Manual) 0.5 K/mm3 (0.0-0.8) 10/29/20 07:56 Eosinophils # (Manual) 0.1 K/mm3 (0.0-0.4) 10/29/20 07:56 Basophils # (Manual) 0.0 K/mm3 (0.0-0.1) 10/29/20 07:56 Metamyelocytes # 0.0 K/mm3 10/29/20 07:56 Myelocytes # 0.0 K/mm3 10/29/20 07:56 Promyelocytes # 0.0 K/mm3 10/29/20 07:56 Blast Cells # 0.0 K/mm3 10/29/20 07:56 WBC Morphology Not Reportable 10/29/20 07:56 Hypersegmented Neuts Not Reportable 10/29/20 07:56 Hyposegmented Neuts Not Reportable 10/29/20 07:56 Hypogranular Neuts Not Reportable 10/29/20 07:56 Smudge Cells Not Reportable 10/29/20 07:56 Toxic Granulation Not Reportable 10/29/20 07:56 Toxic Vacuolation Not Reportable 10/29/20 07:56 Dohle Bodies Not Reportable 10/29/20 07:56 Pelger-Huet Anomaly Not Reportable 10/29/20 07:56 Ester Rods Not Reportable 10/29/20 07:56 Platelet Estimate Consistent w auto 10/29/20 07:56 Clumped Platelets Not Reportable 10/29/20 07:56 Plt Clumps, EDTA Not Reportable 10/29/20 07:56 Large Platelets Few 10/29/20 07:56 Giant Platelets Not Reportable 10/29/20 07:56 Platelet Satelliting Not Reportable 10/29/20 07:56 Plt Morphology Comment Not Reportable 10/29/20 07:56 RBC Morphology Not Reportable 10/29/20 07:56 Dimorphic RBCs Not Reportable 10/29/20 07:56 Polychromasia Rare 10/29/20 07:56 Hypochromasia Few 10/29/20 07:56 Poikilocytosis Not Reportable 10/29/20 07:56 Anisocytosis Not Reportable 10/29/20 07:56 Microcytosis Not Reportable 10/29/20 07:56 Macrocytosis Not Reportable 10/29/20 07:56 Spherocytes Not Reportable 10/29/20 07:56 Pappenheimer Bodies Not Reportable 10/29/20 07:56 Sickle Cells Not Reportable 10/29/20 07:56 Target Cells Few 10/29/20 07:56 Tear Drop Cells Not Reportable 10/29/20 07:56 Ovalocytes Not Reportable 10/29/20 07:56 Stomatocytes Few 10/14/20 04:00 Helmet Cells Not Reportable 10/29/20 07:56 [place] [place] Bodies Not Reportable 10/29/20 07:56 [place] Rings Not Reportable 10/29/20 07:56 Antoine Cells Not Reportable 10/29/20 07:56 Bite Cells Not Reportable 10/29/20 07:56 Crenated Cell Not Reportable 10/29/20 07:56 Elliptocytes Not Reportable 10/29/20 07:56 Acanthocytes (Spur) Not Reportable 10/29/20 07:56 Rouleaux Not Reportable 10/29/20 07:56 Hemoglobin C Crystals Not Reportable 10/29/20 07:56 Schistocytes Not Reportable 10/29/20 07:56 Malaria parasites Not Reportable 10/29/20 07:56 Sickle Cell Solubility See scanned result 10/04/20 Unknown Hemoglobin A See scanned result 10/04/20 Unknown Hemoglobin A2 See scanned result 10/04/20 Unknown Hemoglobin A2 Prime See scanned result 10/04/20 Unknown Hemoglobin C See scanned result 10/04/20 Unknown Hemoglobin D See scanned result 10/04/20 Unknown Hemoglobin E See scanned result 10/04/20 Unknown Hgb F Diffential Stain See scanned result 10/04/20 Unknown Hemoglobin F Quant See scanned result 10/04/20 Unknown Hemoglobin G See scanned result 10/04/20 Unknown Hemoglobin S See scanned result 10/04/20 Unknown Hemoglobin O-Nebo See scanned result 10/04/20 Unknown Hemoglobin [place] See scanned result 10/04/20 Unknown Hemoglobin Analilia See scanned result 10/04/20 Unknown Variant Hemoglobin See scanned result 10/04/20 Unknown Abnorm Hgb IEF Confirm See scanned result 10/04/20 Unknown Hemoglobin Interpret See scanned result 10/04/20 Unknown Hemoglobinopathy Note See scanned result 10/04/20 Unknown Sharad Bodies Not Reportable 10/29/20 07:56 Hem Pathologist Commnt No 10/29/20 07:56 PT 13.6 Sec. (12.2-14.9) 10/21/20 13:54 INR 1.06 (0.87-1.13) 10/21/20 13:54 APTT 31.6 Sec. (24.2-36.6) 10/03/20 00:40 Fibrinogen 336 mg/dl (211-480) 10/04/20 10:00 D-Dimer > 30279 ng/mlDDU (0-234) H 10/04/20 10:00 ABG pH 7.459 pH Units (7.350-7.450) H 10/26/20 10:30 POC ABG pCO2 20.7 mmHg (32.0-48.0) L 10/13/20 07:18 ABG pCO2 32.4 mm Hg 10/26/20 10:30 POC ABG pO2 137.9 mmHg (83-108) H 10/13/20 07:18 ABG pO2 112.2 mm Hg (80.0-90.0) H 10/26/20 10:30 POC ABG HCO3 14.8 10/13/20 07:18 ABG HCO3 22.5 mmol/L (20.0-26.0) 10/26/20 10:30 ABG O2 Saturation 98.2 % (95.0-99.0) 10/26/20 10:30 ABG O2 Content 18.5 (0.0-44) 10/26/20 10:30 POC ABG Base Excess -6.9 10/13/20 07:18 ABG Base Excess -0.6 mmol/L (-2.0-3.0) 10/26/20 10:30 ABG Hemoglobin 13.5 gm/dl (12.0-16.0) 10/26/20 10:30 ABG Oxyhemoglobin 98.3 (94-98) H 10/13/20 07:18 ABG Carboxyhemoglobin 1.3 % (0.0-5.0) 10/26/20 10:30 ABG Methemoglobin 0.5 % (0.0-1.5) 10/26/20 10:30 ABG Sodium 135.9 mmol/L (136.0-145.0) L 10/13/20 07:18 ABG Potassium 3.7 mmol/L (3.40-4.50) 10/13/20 07:18 ABG Chloride 111.0 mmol/L (98-107) H 10/13/20 07:18 ABG Glucose 109 mg/dL (65-95) H 10/13/20 07:18 VBG pH 6.949 (7.320-7.420) L* 10/02/20 Unknown Oxyhemoglobin 96.5 % (95.0-99.0) 10/26/20 10:30 Carboxyhemoglobin 0.3 (0.5-1.5) L 10/13/20 07:18 FiO2 25 % 10/26/20 10:30 Sodium 137 mmol/L (137-145) 11/04/20 05:00 Potassium 4.1 mmol/L (3.6-5.0) 11/04/20 05:00 Chloride 101.1 mmol/L (98-107) 11/04/20 05:00 Carbon Dioxide 25 mmol/L (22-30) 11/04/20 05:00 Anion Gap 15 mmol/L 11/04/20 05:00 BUN 14 mg/dL (7-17) 11/04/20 05:00 Creatinine 0.7 mg/dL (0.6-1.2) 11/04/20 05:00 Estimated GFR > 60 ml/min 11/04/20 05:00 BUN/Creatinine Ratio 20 % 11/04/20 05:00 Glucose 112 mg/dL (65-100) H 11/04/20 05:00 POC Glucose 96 mg/dL (70-105) 11/04/20 07:44 Lactic Acid 1.90 mmol/L (0.7-2.0) 10/04/20 22:00 Uric Acid 7.5 mg/dL (3.5-7.6) 10/02/20 13:05 Calcium 8.8 mg/dL (8.4-10.2) 11/04/20 05:00 Ionized Calcium 4.4 mg/dL (4.8-5.6) L 10/07/20 21:00 Phosphorus 4.70 mg/dL (2.5-4.5) H 10/29/20 07:56 Magnesium 2.10 mg/dL (1.7-2.3) 11/04/20 05:00 Total Bilirubin 0.50 mg/dL (0.1-1.2) 11/04/20 05:00 AST 90 units/L (5-40) H 11/04/20 05:00 ALT 36 units/L (7-56) 11/04/20 05:00 Alkaline Phosphatase 122 units/L (35-129) 11/04/20 05:00 Lactate Dehydrogenase 769 units/L (91-180) H 10/02/20 13:05 NT-Pro-B Natriuret Pep 2788 pg/mL (0-450) H 10/04/20 10:00 Total Protein 7.4 g/dL (6.3-8.2) 11/04/20 05:00 Albumin 3.8 g/dL (3.9-5) L 11/04/20 05:00 Albumin/Globulin Ratio 1.1 % 11/04/20 05:00 Procalcitonin 0.06 ng/mL (<0.15) 10/27/20 07:53 Arterial Blood Glucose 109 mg/dL (65-95) H 10/13/20 07:18 Arterial Blood Ionized Calcium 4.6 mg/dL (4.6-5.3) 10/13/20 07:18 Urine Color Yellow (Yellow) 10/11/20 13:26 Urine Turbidity Clear (Clear) 10/11/20 13:26 Urine pH 7.0 (5.0-7.0) 10/11/20 13:26 Ur Specific [place] 1.014 (1.003-1.030) 10/11/20 13:26 Urine Protein 100 mg/dl mg/dL (Negative) 10/11/20 13:26 Urine Glucose (UA) Neg mg/dL (Negative) 10/11/20 13:26 Urine Ketones Neg mg/dL (Negative) 10/11/20 13:26 Urine Blood Mod (Negative) 10/11/20 13:26 Urine Nitrite Neg (Negative) 10/11/20 13:26 Urine Bilirubin Neg (Negative) 10/11/20 13:26 Urine Urobilinogen < 2.0 mg/dL (<2.0) 10/11/20 13:26 Ur Leukocyte Esterase Sm (Negative) 10/11/20 13:26 Urine WBC (Auto) 24.0 /HPF (0.0-6.0) H 10/11/20 13:26 Urine RBC (Auto) 59.0 /HPF (0.0-6.0) 10/11/20 13:26 Urine Bacteria (Auto) 1+ /HPF (Negative) 10/11/20 13:26 Urine Mucus Few /HPF 10/11/20 13:26 Vancomycin Trough 12.6 ug/mL (5.0-20.0) 10/21/20 13:54 Random Vancomycin 10.7 ug/mL (0-40.0) 10/16/20 13:09 Phenytoin 5.7 ug/mL (10.0-20.0) L 10/13/20 07:00 C. difficile Tox (PCR) Positive (Negative) 10/16/20 10:22 Coronavirus (PCR) Negative (Negative) 10/08/20 14:15 Blood Type O POSITIVE 10/02/20 12:50 Antibody Screen Negative 10/02/20 12:50 Crossmatch See Detail 10/02/20 12:50 Microbiology: Microbiology 11/02/20 19:35 Peripheral/Venous Blood Culture - Preliminary NO GROWTH AFTER 24 HOURS 11/02/20 19:19 Peripheral/Venous Blood Culture - Preliminary NO GROWTH AFTER 24 HOURS - Diagnostic Impressions Diagnostic Impressions: Echocardiogram 10/03/20 13:42 Transthoracic Echocardiogram Indication: S/P Cardiac Arrest R/O Cardiomyopathy BP: 133/71 Conclusions *Global left ventricular systolic function is normal. *The estimated ejection fraction is 60-65%. *There is trace of mitral regurgitation. *The right 0heart chambers are both slightly dilated. *There is mild tricuspid regurgitation. *There is mild-moderate pulmonary hypertension. *The right ventricular systolic pressure is calculated at 44 mmHg. *The study quality is technically difficult. Findings Procedure Info: The study quality is technically difficult. The study is technically limited due to patient body habitus. The study was technically limited due to the patient's inability to lay in the left lateral decubitus position. Left Ventricle: The left ventricular chamber size is normal. There is no left ventricular hypertrophy. Global left ventricular systolic function is normal. The estimated ejection fraction is 60-65%. Left Atrium: The left atrial chamber size is normal. Right Ventricle: The right ventricle is slightly dilated. Right Atrium: The right atrium is mildly dilated. Aortic Valve: The aortic valve leaflets are mildly thickened. There is no evidence of aortic regurgitation. There is no evidence of aortic stenosis. Mitral Valve: The mitral valve leaflets are mildly thickened. There is trace of mitral regurgitation. There is no evidence of mitral stenosis. Tricuspid Valve: There is mild tricuspid regurgitation. The right ventricular systolic pressure is calculated at 44 mmHg. There is evidence of mild pulmonary hypertension. Pulmonic Valve: There is trace pulmonic regurgitation. Pericardium: There is no pericardial effusion. Aorta: There is no dilatation of the ascending aorta. There is no dilatation of the aortic root. Venous: The inferior vena cava is dilated. Measurements Chambers 2D Name Value Normal Range IVSd (2D) 1 cm (0.6 - 1.1) LVPWd (2D) 1.01 cm (0.6 - 1.1) LVIDd (2D) 4.58 cm (3.7 - 5.6) LVIDs (2D) 3.17 cm (2 - 3.8) LV FS (2D) 30.93 % - EF Teichholz (2D) 58.66 % - Ao root diameter (2D) 2.94 cm (2 - 3.7) Volumes/Mass Name Value Normal Range LA ESV SP 4CH (A/L) 72.82 ml - LA ESV SP 2CH (A/L) 66.86 ml - LA ESV BP (A/L) 74.49 ml - LA ESV SP 4CH (MOD) 71.03 ml - LA ESV SP 2CH (MOD) 64.3 ml - LV EDV SP 4CH (MOD) 98.82 ml - LV ESV SP 4CH (MOD) 24.8 ml - EF SP 4CH (MOD) 74.9 % - LV EDV SP 2CH (MOD) 86.1 ml - LV ESV SP 2CH (MOD) 36.93 ml - EF SP 2CH (MOD) 57.11 % - LV EDV BP 94.4 ml - LV ESV BP 32.66 ml - BP EF (MOD) 65.4 % - Diastolic/Systolic Function Name Value Normal Range MV E-wave Vmax 1.04 m/sec - MV deceleration time 160.46 msec - MV A-wave Vmax 0.92 m/sec - MV E:A ratio 1.14 ratio - Aortic Valve Name Value Normal Range AV Vmax 2.12 m/sec - AV VTI 22.37 cm - AV peak gradient 17.95 mmHg - AV mean gradient 7.29 mmHg - LVOT diameter 2.01 cm - LVOT Vmax 1.8 m/sec - LVOT VTI 27.17 cm - LVOT peak gradient 12.91 mmHg - LVOT mean gradient 6.83 mmHg - SV LVOT 86.42 ml - ANITA (continuity Vmax) 2.7 cm2 - ANITA (continuity VTI) 3.86 cm2 - Ascending Ao 3.18 cm - Tricuspid Valve Name Value Normal Range TV E-wave Vmax 0.88 m/sec - TR Vmax 3.01 m/sec - TR peak gradient 36.27 mmHg - RAP 8 mmHg - RVSP 44 mmHg - IVC diameter 2.65 cm (1.2 - 2.3) Pulmonic Valve/Qp:Qs Name Value Normal Range PV Vmax 1.22 m/sec - PV peak gradient 5.91 mmHg - RVOT Vmax 0.87 m/sec - RVOT VTI 13.32 cm - RVOT peak gradient 3 mmHg - PV acceleration time 110.37 msec - [place]/IV: Voiding Method External Female Catheter IV Catheter Type [Right Foot] INT / Saline Lock IV Catheter Type [Left Forearm Peripheral IV ] IV Catheter Type [Left Wrist] INT / Saline Lock IV Catheter Type [Right Hand] INT / Saline Lock IV Catheter Type [Right INT / Saline Lock Antecubital] IV Catheter Type [Right Upper Mid-line arm] IV Catheter Type [Left Triple Lumen Cath Internal Jugular] IV Catheter Type [Left Hand] Peripheral IV IV Catheter Type [Left Peripheral IV Antecubital] Active Medications - Current Medications Current Medications: Generic Name Dose Route Start Last Admin Trade Name Freq PRN Reason Stop Dose Admin Acetaminophen 650 mg 10/05/20 16:34 11/04/20 06:23 Acetaminophen 325 Mg/10.15 Ml Oral Liqd Unit Dose FEEDTUBE 650 mg Q6H PRN Administration Non Cardiac Pain or Temp>100.5 Lipase/Protease/Amylase 1 each 10/05/20 11:09 Lipase 10,500/Protease 25,000/Amylase 43,750 (Units) Dr Barakat FEEDTUBE PRN PRN For Clogged Feeding Tube Enoxaparin Sodium 40 mg 10/22/20 10:00 11/04/20 09:26 Enoxaparin 40 Mg/0.4 Ml Inj SUB-Q 40 mg DAILY ERINN Administration Protocol Famotidine 20 mg 10/07/20 10:00 11/04/20 09:26 Famotidine 20 Mg Tab PO 20 mg BID ERINN Administration Furosemide 40 mg 10/17/20 10:00 11/04/20 09:26 Furosemide 40 Mg Tab PO 40 mg QDAY ERINN Administration Hydralazine HCl 20 mg 10/07/20 11:49 10/17/20 07:20 Hydralazine 20 Mg/1 Ml Inj IV 20 mg Q6H PRN Administration SBP >170 Hydralazine HCl 50 mg 10/17/20 09:00 11/04/20 06:23 Hydralazine 25 Mg Tab PO 50 mg Q8HR ERINN Administration Dextrose 1,000 mls @ 75 mls/hr 10/13/20 11:00 11/03/20 23:41 D10w IV 75 mls/hr DIRECT ERINN Administration Labetalol HCl 300 mg 10/17/20 09:00 11/04/20 09:25 Labetalol 100 Mg Tab PO 300 mg TID ERINN Administration Simple Syrup 15 ml 10/05/20 11:09 Simple Syrup 15 Ml FEEDTUBE PRN PRN Hypoglycemia Simple Syrup 30 ml 10/05/20 11:09 Simple Syrup 15 Ml FEEDTUBE PRN PRN Hypoglycemia Sodium Bicarbonate 325 mg 10/05/20 11:09 Sodium Bicarbonate 325 Mg Tab FEEDTUBE PRN PRN For Clogged Feeding Tube Sodium Bicarbonate 1,300 mg 10/13/20 14:00 11/04/20 09:26 Sodium Bicarbonate 650 Mg Tab PO 1,300 mg TID ERINN Administration Topiramate 50 mg 10/05/20 11:00 11/03/20 23:43 Topiramate Tab 25 Mg Tab PO 50 mg Q12HR ERINN Administration Nutrition/Malnutrition Assess - Dietary Evaluation Nutrition/Malnutrition Findings: Nutrition Notes Start: 10/04/20 11:13 Freq: Status: Active Protocol: Document 11/02/20 11:37 (Rec: 11/02/20 11:43 [id number]) Nutrition Notes Initial or Follow up Reassessment Current Diagnosis Acute Kidney Injury, Respiratory Failure Other Pertinent Diagnosis Cardiac arrest, s/p c-sectuion and supracervial hysterectomy Current Diet Jevity at 60 ml/hr Labs/Tests 11/01: Na 135 Pertinent Medications lasix D10w at 75ml/hr Height 5 ft 8 in Weight 106.2 kg [place] Body Weight (kg) 63.63 BMI 35.6 Weight Status Morbidly Obese Subjective/Other Information FU for TF tolerance. Pt remains on D10 due to BG. Pt tolerating TF at goal, per RN. Pt on t-peice. Percent of energy/protein needs met: 100%/100% Burn Absent Trauma Absent GI Symptoms None Food Allergy Yes Current % PO Negligible Minimum of two criteria No Fluid Accumulation Mild (non-severe) #1 Nutrition Diagnosis Inadequate oral intake Diagnosis Progress(for reassessment Continues documentation) Is patient on ventilator? No Is Patient Ambulatory and/or Out of Bed No REE-([place]-confined to bed) 2186.400 Kcal/Kg value to use for calculation 16 Approximate Energy Requirements Using 1699 kcal/Kg Calculation Used for Recommendations Kcal/kg Additional Notes Protein needs are 68-84g (0.8- 1g/kg AdjBW 85kg) Fluid needs are 1ml/kcal Nutrition Intervention Change Diet Order: Continue Nutrition Support: Jevity 1.2 at 60ml/hr. Flush 100ml q4h. Kcal 1,782 Protein (gm) 87 Fluid (mL) 1,259 Goal #1 TF tolerance Goal #2 Meet at least 75% of energy and protein needs Anticipated Discharge Needs: Unable to determine at this time Follow-Up By: 11/05/20 Additional Comments FU for TF tolernace, BG and Na labs
--- NOTE | 2020-11-04 11:57 | Progress Note ---
Assessment and Plan 30 y/o female with Eclampsia, s/p emergent section with DIC, acute respiratory failure and worsening renal function. 11/04/20: No changes. No new recs. Awaiting send out labs to help figure out hypoglycemia. 11/03/20: Continue D10. Await send out labs. 11/02/20: Called lab today to ask how to order these send out labs. Continue D1 0 along with feeds for now. Stopped robinol and no further reports of increased thickness of secretions. given D10 requirement, do not feel comfortable with transition to the floor. 11/01/20: Will stop Robinol as this may be making secretions to thick. Huge risk for mucous plugging given mental state. Continue D10 and waiting on labs from yesterday. LFT's repeated and AST elevated along with alk phos. Both of these were elevated on admission, then resolved and now are elevated again. In current clinical state, not sure what to make of those numbers. They do not help with trying to figure out hypoglycemia and persistent need for D10. Continue IMCU care. 10/31/20: Will order midline for IV team vs peripheral IV's (multiple). Needs access for d10 as we have not been able to figure out why she is so hypoglyemic. Will measure serum insulin levels and C-peptide levels, as well proinsulin. All of these labs are sendouts so will have to call down to ask how to order as they are not coming up in [facility]. Given her requirement for supplemental IV sugar, not a candidate for floor transfer. 10/30/20: Continue step down monitoring for now. If does well the next 24-36 hours, then will consider floor transfer. Really needs to continue PT with PROM. Will speak with CM about options for here now that critical needs are becoming minimal. 10/29/20: Off vent now for 24 hours. Tolerating T-Piece. Will transition to step down for a few days. If does well there, consider transition to floor. Continue PT. Guarded prognosis. 10/28/20: Daily T-piece trials for as long as tolerated. Attempt to push further daily. OT does not do passive range of motion. Per PT note will do passive range of motion with patient. Guarded prognosis. Hoping to wean off vent and transition to floor. 10/27/20: Continue daily T-piece trials for as long as tolerated. Ok with resting on either PSV or full rate if needed at night but need to strengthen her respiratory muscles. PT/OT if possible. Will transition to step down prior to going to floor to insure stability. 10/26/20: Will obtain ABG today. If good, will attempt on T-piece later. Continue PT/OT. Will speak with CM about possibility of LTACH or nursing facility that can take trached patients. 10/23/20: Daily PSV trials for as long as patient will tolerate. Needs PT/OT consult for passive range of motion. 10/22/20: Will start prolonged PSV trials. Attempt to wean from vent and then transition to floor to see if mental status improves. Continue tube feeds. 10/21/20: Trach and peg placed. No sedation. Restart Lovenox for Upper Ext DVT. Restart feeds when surgery states ok to use PEG. C. Diff treatment per ID. Guarded prognosis. Will be a solder technician wean. Hopeful to wean off vent at least and then can transfer to floor. 10/20/20: NPO after midnight. DVT study just read from 10/14 on yesterday showing upper ext DVT. Started on Lovenox but need to hold therapy until after surgery. could be source of fevers. No sedation. 10/19/20: Stable BP. Will meet/talk with family at noon over the phone with myself and case management. Need to discuss goals of care and what next steps would be. Patient would need trach and peg and transfer to LTACH if family ok with this. Follow up speciation of GNR's in blood. Has been on Cefepime. Continues therapy for C. Diff. Guarded prognosis. Continue daily PSV trials but not ready for extubation secondary to mental state. 10/18/20: Blood pressure is much better with the addition of meds started on yesterday. Need to have family meeting jesica in regards to goals of care. Continue Daily PSV trials but not ready for extubation. Continue therapy for C. Diff per ID. 10/17/20: CT scan was of no help in regards to fevers. C. Diff is positive and BP now is more uncontrolled despite increasing labetalol. Today will increase to 300 TID. Added TID Hydralazine and added PO lasix given her mild pulmonary htn seen on echo. Spoke with mother over the phone and she requests to come see the patient. Given current circumstances, will allow her to come briefly today and then will speak with her at the bedside. No neurology is available at the time and suspect these will be the majority of her questions. Tolerated PSV briefly yesterday and will do again today but not for extended periods as given her mental state she is not a candidate for extubation. I will also ask the mother about solder technician care (trach and peg) when she comes today. Overall prognosis is guarded to poor. If oral meds cannot regulate blood pressure, may need Cardene drip. Continue therapy for C. Diff per ID. Subjective Date of service: 11/04/20 Principal diagnosis: Eclampsia/HELLP Syndrome, ADOLPH, DIC; s/p , s/p supracervical hyst Interval history: Low grade temps last night. Otherwise unchanged. Objective Vital Signs - 12hr 11/04/20 11/04/20 11/04/20 00:00 00:41 00:43 Temperature 99.0 F Pulse Rate 116 H 100 H Respiratory 16 21 Rate Blood Pressure 109/70 O2 Sat by Pulse 99 Oximetry O2 Sat by Pulse Oximetry [ Assessment] 11/04/20 11/04/20 11/04/20 01:00 02:00 02:12 Temperature Pulse Rate 120 H 94 H 97 H Respiratory 13 22 Rate Blood Pressure 114/80 105/50 105/50 O2 Sat by Pulse 100 100 Oximetry O2 Sat by Pulse Oximetry [ Assessment] 11/04/20 11/04/20 11/04/20 03:00 04:00 04:30 Temperature 98.1 F Pulse Rate 113 H 113 H 106 H Respiratory 13 19 Rate Blood Pressure 114/70 116/62 O2 Sat by Pulse 100 100 Oximetry O2 Sat by Pulse 100 Oximetry [ Assessment] 11/04/20 11/04/20 11/04/20 05:00 06:00 06:23 Temperature Pulse Rate 117 H 92 H 94 H Respiratory 17 23 20 Rate Blood Pressure 118/63 108/57 108/57 O2 Sat by Pulse 100 100 Oximetry O2 Sat by Pulse Oximetry [ Assessment] 11/04/20 11/04/20 08:00 09:25 Temperature 98.7 F Pulse Rate 116 H Respiratory Rate Blood Pressure 117/68 O2 Sat by Pulse Oximetry O2 Sat by Pulse Oximetry [ Assessment] Constitutional: comatose, other (critically ill on ventilator trach) Eyes: non-icteric ENT: oropharynx moist, other (orally intubated and not sedated) Neck: other (large in cirumference) Effort: normal Ascultation: Bilateral: clear, diminished breath sounds, other (coarse BS bilaterally w/ mild faint wheezes) Percussion: Bilateral: not dull Cardiovascular: regular rate and rhythm, other (no mrg) Gastrointestinal: normoactive bowel sounds, soft, other (post surgical changes with drain on the left side) Extremities: no cyanosis, pink and warm, anasarca Neurologic: other (unresponsive, not following commands, not tracking) Psychiatric: other (unable to assess) CBC and BMP: 11/04/20 05:00 11/04/20 05:00 ABG, PT/INR, D-dimer: ABG ABG pH 7.459 pH Units (7.350-7.450) H 10/26/20 10:30 POC ABG pCO2 20.7 mmHg (32.0-48.0) L 10/13/20 07:18 ABG pCO2 32.4 mm Hg 10/26/20 10:30 POC ABG pO2 137.9 mmHg (83-108) H 10/13/20 07:18 ABG pO2 112.2 mm Hg (80.0-90.0) H 10/26/20 10:30 POC ABG HCO3 14.8 10/13/20 07:18 ABG O2 Saturation 98.2 % (95.0-99.0) 10/26/20 10:30 PT/INR, D-dimer PT 13.6 Sec. (12.2-14.9) 10/21/20 13:54 INR 1.06 (0.87-1.13) 10/21/20 13:54 D-Dimer > 46405 ng/mlDDU (0-234) H 10/04/20 10:00 Abnormal lab findings: Abnormal Labs 10/02/20 10/02/20 10/02/20 12:03 12:18 12:18 WBC 14.9 H RBC Hgb 9.1 L Hct MCV MCH 22 L MCHC 28 L RDW 17.6 H Plt Count 102 L Lymph % (Auto) Wilkes % (Auto) Lymph # (Auto) [place] # (Auto) Baso # (Auto) Seg Neutrophils % Seg Neuts % (Manual) 36.0 L Lymphocytes % (Manual) 49.0 H Monocytes % (Manual) Nucleated RBC % 6.0 H Seg Neutrophils # Seg Neutrophils # Man Lymphocytes # (Manual) 7.3 H Monocytes # (Manual) PT INR APTT Fibrinogen D-Dimer ABG pH POC ABG pCO2 POC ABG pO2 ABG pO2 ABG HCO3 ABG Base Excess ABG Hemoglobin ABG Oxyhemoglobin ABG Sodium ABG Potassium ABG Chloride ABG Glucose VBG pH Oxyhemoglobin Carboxyhemoglobin Sodium 134 L Potassium Chloride Carbon Dioxide 12 L BUN 6 L Creatinine Glucose 390 H POC Glucose 451 H Lactic Acid Calcium Ionized Calcium Phosphorus Magnesium AST 135 H ALT 85 H Alkaline Phosphatase 172 H Lactate Dehydrogenase 641 H NT-Pro-B Natriuret Pep Total Protein 5.4 L Albumin 2.3 L Arterial Blood Glucose Arterial Blood Ionized Calcium Urine WBC (Auto) Vancomycin Trough Phenytoin Crossmatch 10/02/20 10/02/20 10/02/20 12:50 13:05 13:05 WBC 38.6 H RBC Hgb 8.9 L Hct 29.0 L MCV 73 L MCH 22 L MCHC RDW 17.2 H Plt Count Lymph % (Auto) Wilkes % (Auto) Lymph # (Auto) [place] # (Auto) Baso # (Auto) Seg Neutrophils % Seg Neuts % (Manual) Lymphocytes % (Manual) Monocytes % (Manual) Nucleated RBC % 2.0 H Seg Neutrophils # Seg Neutrophils # Man 20.1 H Lymphocytes # (Manual) 10.4 H Monocytes # (Manual) 2.3 H PT INR APTT Fibrinogen D-Dimer ABG pH POC ABG pCO2 POC ABG pO2 ABG pO2 ABG HCO3 ABG Base Excess ABG Hemoglobin ABG Oxyhemoglobin ABG Sodium ABG Potassium ABG Chloride ABG Glucose VBG pH Oxyhemoglobin Carboxyhemoglobin Sodium Potassium Chloride Carbon Dioxide BUN Creatinine Glucose POC Glucose Lactic Acid Calcium Ionized Calcium Phosphorus Magnesium AST 184 H ALT 113 H Alkaline Phosphatase Lactate Dehydrogenase 769 H NT-Pro-B Natriuret Pep Total Protein Albumin Arterial Blood Glucose Arterial Blood Ionized Calcium Urine WBC (Auto) Vancomycin Trough Phenytoin Crossmatch See Detail 10/02/20 10/02/20 10/02/20 16:25 16:35 16:35 WBC RBC Hgb Hct MCV MCH MCHC RDW Plt Count Lymph % (Auto) [place]kes % (Auto) Lymph # (Auto) [place] # (Auto) Baso # (Auto) Seg Neutrophils % Seg Neuts % (Manual) Lymphocytes % (Manual) Monocytes % (Manual) Nucleated RBC % Seg Neutrophils # Seg Neutrophils # Man Lymphocytes # (Manual) Monocytes # (Manual) PT INR APTT Fibrinogen D-Dimer ABG pH 7.031 L* POC ABG pCO2 POC ABG pO2 ABG pO2 116.8 H ABG HCO3 12.7 L ABG Base Excess -16.9 L ABG Hemoglobin 7.8 L ABG Oxyhemoglobin ABG Sodium ABG Potassium ABG Chloride ABG Glucose VBG pH Oxyhemoglobin 94.9 L Carboxyhemoglobin Sodium Potassium Chloride Carbon Dioxide BUN Creatinine Glucose 403 H POC Glucose Lactic Acid 11.40 H* Calcium 6.3 L D Ionized Calcium Phosphorus Magnesium AST 70 H ALT Alkaline Phosphatase Lactate Dehydrogenase NT-Pro-B Natriuret Pep Total Protein 1.9 L D Albumin 1.2 L Arterial Blood Glucose Arterial Blood Ionized Calcium Urine WBC (Auto) Vancomycin Trough Phenytoin Crossmatch 10/02/20 10/02/20 10/02/20 18:18 18:18 22:30 WBC 11.5 H RBC 2.06 L Hgb 5.5 L* D Hct 17.3 L* D MCV MCH 27 L MCHC RDW 19.5 H Plt Count 60 L Lymph % (Auto) [place]kes % (Auto) Lymph # (Auto) [place] # (Auto) Baso # (Auto) Seg Neutrophils % Seg Neuts % (Manual) Lymphocytes % (Manual) 8.0 L Monocytes % (Manual) 8.0 H Nucleated RBC % 8.0 H Seg Neutrophils # Seg Neutrophils # Man Lymphocytes # (Manual) 0.9 L Monocytes # (Manual) 0.9 H PT 37.1 H INR 3.71 H APTT 135.8 H* Fibrinogen D-Dimer ABG pH 7.067 L* POC ABG pCO2 POC ABG pO2 ABG pO2 183.0 H ABG HCO3 14.1 L ABG Base Excess -15.1 L ABG Hemoglobin 7.7 L ABG Oxyhemoglobin ABG Sodium ABG Potassium ABG Chloride ABG Glucose VBG pH Oxyhemoglobin Carboxyhemoglobin Sodium Potassium Chloride Carbon Dioxide BUN Creatinine Glucose POC Glucose Lactic Acid Calcium Ionized Calcium Phosphorus Magnesium AST ALT Alkaline Phosphatase Lactate Dehydrogenase NT-Pro-B Natriuret Pep Total Protein Albumin Arterial Blood Glucose Arterial Blood Ionized Calcium Urine WBC (Auto) Vancomycin Trough Phenytoin Crossmatch 10/02/20 10/02/20 10/03/20 Unknown Unknown 00:01 WBC RBC Hgb Hct MCV MCH MCHC RDW Plt Count Lymph % (Auto) [place]kes % (Auto) Lymph # (Auto) [place] # (Auto) Baso # (Auto) Seg Neutrophils % Seg Neuts % (Manual) Lymphocytes % (Manual) Monocytes % (Manual) Nucleated RBC % Seg Neutrophils # Seg Neutrophils # Man Lymphocytes # (Manual) Monocytes # (Manual) PT 61.1 H INR 6.92 H* APTT 158.7 H* Fibrinogen < 60 L* D-Dimer > 95345 H ABG pH POC ABG pCO2 POC ABG pO2 ABG pO2 ABG HCO3 ABG Base Excess ABG Hemoglobin ABG Oxyhemoglobin ABG Sodium ABG Potassium ABG Chloride ABG Glucose VBG pH 6.949 L* Oxyhemoglobin Carboxyhemoglobin Sodium Potassium Chloride Carbon Dioxide BUN Creatinine Glucose POC Glucose 196 H Lactic Acid Calcium Ionized Calcium Phosphorus Magnesium AST ALT Alkaline Phosphatase Lactate Dehydrogenase NT-Pro-B Natriuret Pep Total Protein Albumin Arterial Blood Glucose Arterial Blood Ionized Calcium Urine WBC (Auto) Vancomycin Trough Phenytoin Crossmatch 10/03/20 10/03/20 10/03/20 00:40 00:40 00:40 WBC RBC Hgb Hct MCV MCH MCHC RDW Plt Count Lymph % (Auto) [place]kes % (Auto) Lymph # (Auto) [place] # (Auto) Baso # (Auto) Seg Neutrophils % Seg Neuts % (Manual) Lymphocytes % (Manual) Monocytes % (Manual) Nucleated RBC % Seg Neutrophils # Seg Neutrophils # Man Lymphocytes # (Manual) Monocytes # (Manual) PT 15.1 H INR 1.21 H APTT Fibrinogen D-Dimer ABG pH POC ABG pCO2 POC ABG pO2 ABG pO2 ABG HCO3 ABG Base Excess ABG Hemoglobin ABG Oxyhemoglobin ABG Sodium ABG Potassium ABG Chloride ABG Glucose VBG pH Oxyhemoglobin Carboxyhemoglobin Sodium 136 L Potassium Chloride Carbon Dioxide BUN Creatinine 1.6 H D Glucose 106 H POC Glucose Lactic Acid 5.60 H* Calcium 6.5 L Ionized Calcium Phosphorus Magnesium AST 232 H ALT 104 H Alkaline Phosphatase Lactate Dehydrogenase NT-Pro-B Natriuret Pep Total Protein 3.9 L D Albumin 2.4 L Arterial Blood Glucose Arterial Blood Ionized Calcium Urine WBC (Auto) Vancomycin Trough Phenytoin Crossmatch 10/03/20 10/03/20 10/03/20 02:08 02:08 02:08 WBC 17.6 H RBC 3.27 L Hgb 9.9 L D Hct 29.9 L D MCV MCH MCHC RDW 16.5 H Plt Count 75 L Lymph % (Auto) [place]kes % (Auto) Lymph # (Auto) [place] # (Auto) Baso # (Auto) Seg Neutrophils % Seg Neuts % (Manual) 76.0 H Lymphocytes % (Manual) Monocytes % (Manual) Nucleated RBC % 8.0 H Seg Neutrophils # Seg Neutrophils # Man 13.4 H Lymphocytes # (Manual) Monocytes # (Manual) PT INR APTT Fibrinogen D-Dimer ABG pH POC ABG pCO2 POC ABG pO2 ABG pO2 ABG HCO3 ABG Base Excess ABG Hemoglobin ABG Oxyhemoglobin ABG Sodium ABG Potassium ABG Chloride ABG Glucose VBG pH Oxyhemoglobin Carboxyhemoglobin Sodium Potassium Chloride Carbon Dioxide 19 L BUN Creatinine 1.4 H Glucose 306 H POC Glucose Lactic Acid 10.50 H* Calcium 6.4 L Ionized Calcium Phosphorus Magnesium AST ALT Alkaline Phosphatase Lactate Dehydrogenase NT-Pro-B Natriuret Pep Total Protein Albumin Arterial Blood Glucose Arterial Blood Ionized Calcium Urine WBC (Auto) Vancomycin Trough Phenytoin Crossmatch 10/03/20 10/03/20 10/03/20 02:42 03:59 05:31 WBC RBC Hgb Hct MCV MCH MCHC RDW Plt Count Lymph % (Auto) [place] % (Auto) Lymph # (Auto) [place] # (Auto) Baso # (Auto) Seg Neutrophils % Seg Neuts % (Manual) Lymphocytes % (Manual) Monocytes % (Manual) Nucleated RBC % Seg Neutrophils # Seg Neutrophils # Man Lymphocytes # (Manual) Monocytes # (Manual) PT INR APTT Fibrinogen D-Dimer ABG pH 7.144 L POC ABG pCO2 54.4 H POC ABG pO2 ABG pO2 ABG HCO3 ABG Base Excess ABG Hemoglobin 10.0 L ABG Oxyhemoglobin ABG Sodium ABG Potassium ABG Chloride 108.0 H ABG Glucose 306 H VBG pH Oxyhemoglobin Carboxyhemoglobin Sodium Potassium Chloride Carbon Dioxide BUN Creatinine Glucose POC Glucose 209 H Lactic Acid 9.20 H* Calcium Ionized Calcium Phosphorus Magnesium AST ALT Alkaline Phosphatase Lactate Dehydrogenase NT-Pro-B Natriuret Pep Total Protein Albumin Arterial Blood Glucose 306 H Arterial Blood Ionized Calcium 3.7 L Urine WBC (Auto) Vancomycin Trough Phenytoin Crossmatch 10/03/20 10/03/20 10/03/20 09:00 09:00 09:00 WBC 27.4 H RBC 2.84 L Hgb 8.5 L Hct 25.1 L MCV MCH MCHC RDW 16.1 H Plt Count 72 L Lymph % (Auto) [place] % (Auto) Lymph # (Auto) [place] # (Auto) Baso # (Auto) Seg Neutrophils % Seg Neuts % (Manual) Lymphocytes % (Manual) 11.0 L Monocytes % (Manual) Nucleated RBC % 3.0 H Seg Neutrophils # Seg Neutrophils # Man 18.4 H Lymphocytes # (Manual) Monocytes # (Manual) 1.9 H PT INR APTT Fibrinogen D-Dimer ABG pH POC ABG pCO2 POC ABG pO2 ABG pO2 ABG HCO3 ABG Base Excess ABG Hemoglobin ABG Oxyhemoglobin ABG Sodium ABG Potassium ABG Chloride ABG Glucose VBG pH Oxyhemoglobin Carboxyhemoglobin Sodium Potassium Chloride Carbon Dioxide BUN Creatinine 1.7 H Glucose 216 H POC Glucose Lactic Acid 9.20 H* Calcium 6.3 L Ionized Calcium Phosphorus Magnesium AST 331 H ALT 171 H Alkaline Phosphatase Lactate Dehydrogenase NT-Pro-B Natriuret Pep Total Protein 3.7 L Albumin 1.9 L Arterial Blood Glucose Arterial Blood Ionized Calcium Urine WBC (Auto) Vancomycin Trough Phenytoin Crossmatch 10/03/20 10/03/20 10/03/20 11:20 11:46 11:50 WBC 28.7 H RBC 2.67 L Hgb 8.0 L Hct 23.7 L MCV MCH MCHC RDW 16.6 H Plt Count 76 L Lymph % (Auto) [place] % (Auto) Lymph # (Auto) [place] # (Auto) Baso # (Auto) Seg Neutrophils % Seg Neuts % (Manual) Lymphocytes % (Manual) Monocytes % (Manual) Nucleated RBC % Seg Neutrophils # Seg Neutrophils # Man Lymphocytes # (Manual) Monocytes # (Manual) PT INR APTT Fibrinogen D-Dimer ABG pH POC ABG pCO2 POC ABG pO2 ABG pO2 ABG HCO3 ABG Base Excess ABG Hemoglobin ABG Oxyhemoglobin ABG Sodium ABG Potassium ABG Chloride ABG Glucose VBG pH Oxyhemoglobin Carboxyhemoglobin Sodium Potassium Chloride Carbon Dioxide BUN Creatinine Glucose POC Glucose 125 H Lactic Acid 8.00 H* Calcium Ionized Calcium Phosphorus Magnesium AST ALT Alkaline Phosphatase Lactate Dehydrogenase NT-Pro-B Natriuret Pep Total Protein Albumin Arterial Blood Glucose Arterial Blood Ionized Calcium Urine WBC (Auto) Vancomycin Trough Phenytoin Crossmatch 10/03/20 10/04/20 10/04/20 11:50 00:40 00:40 WBC RBC Hgb 6.8 L Hct 19.4 L* MCV MCH MCHC RDW Plt Count 49 L Lymph % (Auto) [place] % (Auto) Lymph # (Auto) [place] # (Auto) Baso # (Auto) Seg Neutrophils % Seg Neuts % (Manual) Lymphocytes % (Manual) Monocytes % (Manual) Nucleated RBC % Seg Neutrophils # Seg Neutrophils # Man Lymphocytes # (Manual) Monocytes # (Manual) PT INR APTT Fibrinogen D-Dimer ABG pH 7.244 L POC ABG pCO2 POC ABG pO2 ABG pO2 ABG HCO3 ABG Base Excess -4.5 L ABG Hemoglobin 7.3 L ABG Oxyhemoglobin ABG Sodium ABG Potassium ABG Chloride ABG Glucose VBG pH Oxyhemoglobin Carboxyhemoglobin Sodium Potassium Chloride Carbon Dioxide BUN Creatinine Glucose POC Glucose Lactic Acid Calcium Ionized Calcium Phosphorus Magnesium AST ALT Alkaline Phosphatase Lactate Dehydrogenase NT-Pro-B Natriuret Pep Total Protein Albumin Arterial Blood Glucose Arterial Blood Ionized Calcium Urine WBC (Auto) Vancomycin Trough Phenytoin Crossmatch 10/04/20 10/04/20 10/04/20 03:53 10:00 10:00 WBC 14.6 H RBC 2.57 L Hgb 7.6 L Hct 22.5 L MCV MCH MCHC RDW 15.8 H Plt Count 38 L Lymph % (Auto) 7.7 L Wilkes % (Auto) Lymph # (Auto) 1.1 L [place] # (Auto) 0.9 H Baso # (Auto) Seg Neutrophils % 85.6 H Seg Neuts % (Manual) Lymphocytes % (Manual) Monocytes % (Manual) Nucleated RBC % Seg Neutrophils # 12.5 H Seg Neutrophils # Man Lymphocytes # (Manual) Monocytes # (Manual) PT INR APTT Fibrinogen D-Dimer ABG pH POC ABG pCO2 POC ABG pO2 110.6 H ABG pO2 ABG HCO3 ABG Base Excess ABG Hemoglobin 6.7 L ABG Oxyhemoglobin ABG Sodium 132.0 L ABG Potassium ABG Chloride ABG Glucose 111 H VBG pH Oxyhemoglobin Carboxyhemoglobin Sodium 134 L D Potassium Chloride 97.6 L Carbon Dioxide BUN Creatinine 1.7 H Glucose POC Glucose Lactic Acid Calcium 6.3 L Ionized Calcium Phosphorus Magnesium AST 203 H ALT 81 H Alkaline Phosphatase Lactate Dehydrogenase NT-Pro-B Natriuret Pep Total Protein 3.9 L Albumin 2.3 L Arterial Blood Glucose 111 H Arterial Blood Ionized Calcium 3.5 L Urine WBC (Auto) Vancomycin Trough Phenytoin Crossmatch 10/04/20 10/04/20 10/04/20 10:00 10:00 10:14 WBC RBC Hgb Hct MCV MCH MCHC RDW Plt Count Lymph % (Auto) [place] % (Auto) Lymph # (Auto) [place] # (Auto) Baso # (Auto) Seg Neutrophils % Seg Neuts % (Manual) Lymphocytes % (Manual) Monocytes % (Manual) Nucleated RBC % Seg Neutrophils # Seg Neutrophils # Man Lymphocytes # (Manual) Monocytes # (Manual) PT INR APTT Fibrinogen D-Dimer > 83143 H ABG pH POC ABG pCO2 POC ABG pO2 ABG pO2 ABG HCO3 ABG Base Excess ABG Hemoglobin ABG Oxyhemoglobin ABG Sodium ABG Potassium ABG Chloride ABG Glucose VBG pH Oxyhemoglobin Carboxyhemoglobin Sodium Potassium Chloride Carbon Dioxide BUN Creatinine Glucose POC Glucose Lactic Acid 3.90 H* Calcium Ionized Calcium Phosphorus Magnesium AST ALT Alkaline Phosphatase Lactate Dehydrogenase NT-Pro-B Natriuret Pep 2788 H Total Protein Albumin Arterial Blood Glucose Arterial Blood Ionized Calcium Urine WBC (Auto) Vancomycin Trough Phenytoin Crossmatch 10/04/20 10/04/20 10/04/20 14:00 14:00 18:00 WBC 15.7 H RBC 3.17 L Hgb 9.3 L 9.6 L Hct 27.2 L 28.0 L MCV MCH MCHC RDW 16.9 H Plt Count 41 L Lymph % (Auto) 8.6 L Wilkes % (Auto) Lymph # (Auto) [place] # (Auto) 0.9 H Baso # (Auto) Seg Neutrophils % 85.4 H Seg Neuts % (Manual) Lymphocytes % (Manual) Monocytes % (Manual) Nucleated RBC % Seg Neutrophils # 13.4 H Seg Neutrophils # Man Lymphocytes # (Manual) Monocytes # (Manual) PT INR APTT Fibrinogen D-Dimer ABG pH POC ABG pCO2 POC ABG pO2 ABG pO2 ABG HCO3 ABG Base Excess ABG Hemoglobin ABG Oxyhemoglobin ABG Sodium ABG Potassium ABG Chloride ABG Glucose VBG pH Oxyhemoglobin Carboxyhemoglobin Sodium 133 L Potassium Chloride 96.4 L Carbon Dioxide BUN 18 H Creatinine 1.7 H Glucose POC Glucose Lactic Acid Calcium 6.3 L Ionized Calcium Phosphorus Magnesium AST ALT Alkaline Phosphatase Lactate Dehydrogenase NT-Pro-B Natriuret Pep Total Protein Albumin Arterial Blood Glucose Arterial Blood Ionized Calcium Urine WBC (Auto) Vancomycin Trough Phenytoin Crossmatch 10/04/20 10/04/20 10/05/20 18:00 22:00 05:00 WBC 17.6 H RBC 3.34 L Hgb 9.9 L Hct 29.4 L MCV MCH MCHC RDW 17.1 H Plt Count 56 L Lymph % (Auto) 8.5 L Wilkes % (Auto) Lymph # (Auto) [place] # (Auto) 1.0 H Baso # (Auto) Seg Neutrophils % 85.1 H Seg Neuts % (Manual) Lymphocytes % (Manual) Monocytes % (Manual) Nucleated RBC % Seg Neutrophils # 15.0 H Seg Neutrophils # Man Lymphocytes # (Manual) Monocytes # (Manual) PT INR APTT Fibrinogen D-Dimer ABG pH POC ABG pCO2 POC ABG pO2 ABG pO2 ABG HCO3 ABG Base Excess ABG Hemoglobin ABG Oxyhemoglobin ABG Sodium ABG Potassium ABG Chloride ABG Glucose VBG pH Oxyhemoglobin Carboxyhemoglobin Sodium 136 L Potassium Chloride Carbon Dioxide BUN 18 H Creatinine 1.7 H Glucose POC Glucose Lactic Acid 2.30 H* Calcium 6.6 L Ionized Calcium Phosphorus Magnesium AST ALT Alkaline Phosphatase Lactate Dehydrogenase NT-Pro-B Natriuret Pep Total Protein Albumin Arterial Blood Glucose Arterial Blood Ionized Calcium Urine WBC (Auto) Vancomycin Trough Phenytoin Crossmatch 10/05/20 10/05/20 10/05/20 05:00 05:00 05:03 WBC RBC Hgb Hct MCV MCH MCHC RDW Plt Count Lymph % (Auto) [place] % (Auto) Lymph # (Auto) [place] # (Auto) Baso # (Auto) Seg Neutrophils % Seg Neuts % (Manual) Lymphocytes % (Manual) Monocytes % (Manual) Nucleated RBC % Seg Neutrophils # Seg Neutrophils # Man Lymphocytes # (Manual) Monocytes # (Manual) PT INR APTT Fibrinogen D-Dimer ABG pH 7.458 H POC ABG pCO2 POC ABG pO2 ABG pO2 74.3 L ABG HCO3 27.5 H ABG Base Excess 3.4 H ABG Hemoglobin 10.0 L ABG Oxyhemoglobin ABG Sodium ABG Potassium ABG Chloride ABG Glucose VBG pH Oxyhemoglobin 94.9 L Carboxyhemoglobin Sodium Potassium Chloride Carbon Dioxide BUN 19 H Creatinine 1.8 H Glucose POC Glucose Lactic Acid Calcium 6.8 L Ionized Calcium 3.9 L Phosphorus Magnesium AST 225 H ALT 85 H Alkaline Phosphatase Lactate Dehydrogenase NT-Pro-B Natriuret Pep Total Protein 4.5 L Albumin 2.7 L Arterial Blood Glucose Arterial Blood Ionized Calcium Urine WBC (Auto) Vancomycin Trough Phenytoin Crossmatch 10/05/20 10/05/20 10/05/20 10:10 15:00 19:40 WBC RBC Hgb Hct MCV MCH MCHC RDW Plt Count Lymph % (Auto) [place] % (Auto) Lymph # (Auto) [place] # (Auto) Baso # (Auto) Seg Neutrophils % Seg Neuts % (Manual) Lymphocytes % (Manual) Monocytes % (Manual) Nucleated RBC % Seg Neutrophils # Seg Neutrophils # Man Lymphocytes # (Manual) Monocytes # (Manual) PT INR APTT Fibrinogen D-Dimer ABG pH POC ABG pCO2 POC ABG pO2 ABG pO2 ABG HCO3 ABG Base Excess ABG Hemoglobin ABG Oxyhemoglobin ABG Sodium ABG Potassium ABG Chloride ABG Glucose VBG pH Oxyhemoglobin Carboxyhemoglobin Sodium Potassium 3.5 L Chloride Carbon Dioxide 31 H 32 H BUN 19 H 19 H Creatinine 1.8 H 1.8 H Glucose POC Glucose Lactic Acid Calcium 7.0 L 7.2 L Ionized Calcium Phosphorus Magnesium 2.90 H AST ALT Alkaline Phosphatase Lactate Dehydrogenase NT-Pro-B Natriuret Pep Total Protein Albumin Arterial Blood Glucose Arterial Blood Ionized Calcium Urine WBC (Auto) Vancomycin Trough Phenytoin Crossmatch 10/06/20 10/06/20 10/06/20 01:05 03:12 04:00 WBC 17.1 H RBC 3.47 L Hgb Hct MCV MCH MCHC RDW 17.4 H Plt Count 82 L Lymph % (Auto) 8.3 L [place] % (Auto) Lymph # (Auto) [place] # (Auto) 1.1 H Baso # (Auto) Seg Neutrophils % 83.8 H Seg Neuts % (Manual) Lymphocytes % (Manual) Monocytes % (Manual) Nucleated RBC % Seg Neutrophils # 14.3 H Seg Neutrophils # Man Lymphocytes # (Manual) Monocytes # (Manual) PT INR APTT Fibrinogen D-Dimer ABG pH 7.474 H POC ABG pCO2 POC ABG pO2 129.5 H ABG pO2 ABG HCO3 ABG Base Excess ABG Hemoglobin 11.4 L ABG Oxyhemoglobin ABG Sodium 131.8 L ABG Potassium ABG Chloride ABG Glucose 103 H VBG pH Oxyhemoglobin Carboxyhemoglobin 0.3 L Sodium Potassium Chloride Carbon Dioxide BUN Creatinine Glucose POC Glucose Lactic Acid Calcium Ionized Calcium Phosphorus Magnesium 3.70 H AST ALT Alkaline Phosphatase Lactate Dehydrogenase NT-Pro-B Natriuret Pep Total Protein Albumin Arterial Blood Glucose 103 H Arterial Blood Ionized Calcium 4.2 L Urine WBC (Auto) Vancomycin Trough Phenytoin Crossmatch 10/06/20 10/06/20 10/06/20 04:00 05:31 08:12 WBC RBC Hgb Hct MCV MCH MCHC RDW Plt Count Lymph % (Auto) [place] % (Auto) Lymph # (Auto) [place] # (Auto) Baso # (Auto) Seg Neutrophils % Seg Neuts % (Manual) Lymphocytes % (Manual) Monocytes % (Manual) Nucleated RBC % Seg Neutrophils # Seg Neutrophils # Man Lymphocytes # (Manual) Monocytes # (Manual) PT INR APTT Fibrinogen D-Dimer ABG pH POC ABG pCO2 POC ABG pO2 ABG pO2 ABG HCO3 ABG Base Excess ABG Hemoglobin ABG Oxyhemoglobin ABG Sodium ABG Potassium ABG Chloride ABG Glucose VBG pH Oxyhemoglobin Carboxyhemoglobin Sodium Potassium 3.5 L Chloride Carbon Dioxide BUN 19 H Creatinine 1.8 H Glucose 102 H POC Glucose 116 H Lactic Acid Calcium 7.2 L Ionized Calcium Phosphorus Magnesium 5.40 H AST 307 H ALT 137 H Alkaline Phosphatase Lactate Dehydrogenase NT-Pro-B Natriuret Pep Total Protein 4.5 L Albumin 2.6 L Arterial Blood Glucose Arterial Blood Ionized Calcium Urine WBC (Auto) Vancomycin Trough Phenytoin Crossmatch 10/06/20 10/06/20 10/06/20 11:00 11:50 20:13 WBC RBC Hgb Hct MCV MCH MCHC RDW Plt Count Lymph % (Auto) [place] % (Auto) Lymph # (Auto) [place] # (Auto) Baso # (Auto) Seg Neutrophils % Seg Neuts % (Manual) Lymphocytes % (Manual) Monocytes % (Manual) Nucleated RBC % Seg Neutrophils # Seg Neutrophils # Man Lymphocytes # (Manual) Monocytes # (Manual) PT INR APTT Fibrinogen D-Dimer ABG pH POC ABG pCO2 POC ABG pO2 ABG pO2 ABG HCO3 ABG Base Excess ABG Hemoglobin ABG Oxyhemoglobin ABG Sodium ABG Potassium ABG Chloride ABG Glucose VBG pH Oxyhemoglobin Carboxyhemoglobin Sodium Potassium Chloride Carbon Dioxide BUN Creatinine Glucose POC Glucose 106 H Lactic Acid Calcium Ionized Calcium Phosphorus Magnesium 6.50 H 6.20 H AST ALT Alkaline Phosphatase Lactate Dehydrogenase NT-Pro-B Natriuret Pep Total Protein Albumin Arterial Blood Glucose Arterial Blood Ionized Calcium Urine WBC (Auto) Vancomycin Trough Phenytoin Crossmatch 10/06/20 10/06/20 10/06/20 20:17 22:29 23:57 WBC RBC Hgb Hct MCV MCH MCHC RDW Plt Count Lymph % (Auto) [place] % (Auto) Lymph # (Auto) [place] # (Auto) Baso # (Auto) Seg Neutrophils % Seg Neuts % (Manual) Lymphocytes % (Manual) Monocytes % (Manual) Nucleated RBC % Seg Neutrophils # Seg Neutrophils # Man Lymphocytes # (Manual) Monocytes # (Manual) PT INR APTT Fibrinogen D-Dimer ABG pH POC ABG pCO2 POC ABG pO2 ABG pO2 ABG HCO3 ABG Base Excess ABG Hemoglobin ABG Oxyhemoglobin ABG Sodium ABG Potassium ABG Chloride ABG Glucose VBG pH Oxyhemoglobin Carboxyhemoglobin Sodium Potassium Chloride Carbon Dioxide BUN Creatinine Glucose POC Glucose 112 H 126 H 133 H Lactic Acid Calcium Ionized Calcium Phosphorus Magnesium AST ALT Alkaline Phosphatase Lactate Dehydrogenase NT-Pro-B Natriuret Pep Total Protein Albumin Arterial Blood Glucose Arterial Blood Ionized Calcium Urine WBC (Auto) Vancomycin Trough Phenytoin Crossmatch 10/07/20 10/07/20 10/07/20 00:35 02:22 03:16 WBC RBC Hgb Hct MCV MCH MCHC RDW Plt Count Lymph % (Auto) [place] % (Auto) Lymph # (Auto) [place] # (Auto) Baso # (Auto) Seg Neutrophils % Seg Neuts % (Manual) Lymphocytes % (Manual) Monocytes % (Manual) Nucleated RBC % Seg Neutrophils # Seg Neutrophils # Man Lymphocytes # (Manual) Monocytes # (Manual) PT INR APTT Fibrinogen D-Dimer ABG pH POC ABG pCO2 POC ABG pO2 ABG pO2 ABG HCO3 ABG Base Excess ABG Hemoglobin 11.6 L ABG Oxyhemoglobin ABG Sodium ABG Potassium ABG Chloride ABG Glucose 156 H VBG pH Oxyhemoglobin Carboxyhemoglobin 0.3 L Sodium Potassium Chloride Carbon Dioxide BUN Creatinine Glucose POC Glucose 124 H Lactic Acid Calcium Ionized Calcium Phosphorus Magnesium 5.90 H AST ALT Alkaline Phosphatase Lactate Dehydrogenase NT-Pro-B Natriuret Pep Total Protein Albumin Arterial Blood Glucose 156 H Arterial Blood Ionized Calcium 4.2 L Urine WBC (Auto) Vancomycin Trough Phenytoin Crossmatch 10/07/20 10/07/20 10/07/20 04:06 05:45 07:05 WBC 19.2 H RBC 3.57 L Hgb Hct MCV MCH MCHC 35 H RDW 17.1 H Plt Count 129 L Lymph % (Auto) [place] % (Auto) Lymph # (Auto) [place] # (Auto) Baso # (Auto) Seg Neutrophils % Seg Neuts % (Manual) 94.0 H Lymphocytes % (Manual) 6.0 L Monocytes % (Manual) Nucleated RBC % Seg Neutrophils # Seg Neutrophils # Man 18.0 H Lymphocytes # (Manual) Monocytes # (Manual) PT INR APTT Fibrinogen D-Dimer ABG pH POC ABG pCO2 POC ABG pO2 ABG pO2 ABG HCO3 ABG Base Excess ABG Hemoglobin ABG Oxyhemoglobin ABG Sodium ABG Potassium ABG Chloride ABG Glucose VBG pH Oxyhemoglobin Carboxyhemoglobin Sodium Potassium Chloride Carbon Dioxide BUN Creatinine Glucose POC Glucose 135 H 149 H Lactic Acid Calcium Ionized Calcium Phosphorus Magnesium AST ALT Alkaline Phosphatase Lactate Dehydrogenase NT-Pro-B Natriuret Pep Total Protein Albumin Arterial Blood Glucose Arterial Blood Ionized Calcium Urine WBC (Auto) Vancomycin Trough Phenytoin Crossmatch 10/07/20 10/07/20 10/07/20 07:05 07:05 12:21 WBC RBC Hgb Hct MCV MCH MCHC RDW Plt Count Lymph % (Auto) [place] % (Auto) Lymph # (Auto) [place] # (Auto) Baso # (Auto) Seg Neutrophils % Seg Neuts % (Manual) Lymphocytes % (Manual) Monocytes % (Manual) Nucleated RBC % Seg Neutrophils # Seg Neutrophils # Man Lymphocytes # (Manual) Monocytes # (Manual) PT INR APTT Fibrinogen D-Dimer ABG pH POC ABG pCO2 POC ABG pO2 ABG pO2 ABG HCO3 ABG Base Excess ABG Hemoglobin ABG Oxyhemoglobin ABG Sodium ABG Potassium ABG Chloride ABG Glucose VBG pH Oxyhemoglobin Carboxyhemoglobin Sodium Potassium Chloride Carbon Dioxide BUN 21 H Creatinine 1.7 H Glucose 171 H POC Glucose 124 H Lactic Acid Calcium 7.4 L Ionized Calcium Phosphorus Magnesium 6.10 H AST 245 H ALT 147 H Alkaline Phosphatase Lactate Dehydrogenase NT-Pro-B Natriuret Pep Total Protein 5.3 L Albumin 2.8 L Arterial Blood Glucose Arterial Blood Ionized Calcium Urine WBC (Auto) Vancomycin Trough Phenytoin Crossmatch 10/07/20 10/07/20 10/07/20 19:52 21:00 21:50 WBC RBC Hgb Hct MCV MCH MCHC RDW Plt Count Lymph % (Auto) [place] % (Auto) Lymph # (Auto) [place] # (Auto) Baso # (Auto) Seg Neutrophils % Seg Neuts % (Manual) Lymphocytes % (Manual) Monocytes % (Manual) Nucleated RBC % Seg Neutrophils # Seg Neutrophils # Man Lymphocytes # (Manual) Monocytes # (Manual) PT INR APTT Fibrinogen D-Dimer ABG pH POC ABG pCO2 POC ABG pO2 ABG pO2 ABG HCO3 ABG Base Excess ABG Hemoglobin ABG Oxyhemoglobin ABG Sodium ABG Potassium ABG Chloride ABG Glucose VBG pH Oxyhemoglobin Carboxyhemoglobin Sodium Potassium Chloride Carbon Dioxide BUN Creatinine Glucose POC Glucose 193 H 138 H Lactic Acid Calcium Ionized Calcium 4.4 L Phosphorus Magnesium AST ALT Alkaline Phosphatase Lactate Dehydrogenase NT-Pro-B Natriuret Pep Total Protein Albumin Arterial Blood Glucose Arterial Blood Ionized Calcium Urine WBC (Auto) Vancomycin Trough Phenytoin Crossmatch 10/07/20 10/08/20 10/08/20 23:41 04:20 05:30 WBC RBC Hgb Hct MCV MCH MCHC RDW Plt Count Lymph % (Auto) [place] % (Auto) Lymph # (Auto) [place] # (Auto) Baso # (Auto) Seg Neutrophils % Seg Neuts % (Manual) Lymphocytes % (Manual) Monocytes % (Manual) Nucleated RBC % Seg Neutrophils # Seg Neutrophils # Man Lymphocytes # (Manual) Monocytes # (Manual) PT INR APTT Fibrinogen D-Dimer ABG pH 7.467 H POC ABG pCO2 POC ABG pO2 189.8 H ABG pO2 ABG HCO3 ABG Base Excess ABG Hemoglobin 10.8 L ABG Oxyhemoglobin ABG Sodium ABG Potassium ABG Chloride ABG Glucose 133 H VBG pH Oxyhemoglobin Carboxyhemoglobin Sodium Potassium Chloride Carbon Dioxide BUN Creatinine Glucose POC Glucose 118 H 114 H Lactic Acid Calcium Ionized Calcium Phosphorus Magnesium AST ALT Alkaline Phosphatase Lactate Dehydrogenase NT-Pro-B Natriuret Pep Total Protein Albumin Arterial Blood Glucose 133 H Arterial Blood Ionized Calcium 4.2 L Urine WBC (Auto) Vancomycin Trough Phenytoin Crossmatch 10/08/20 10/08/20 10/08/20 05:43 06:42 06:42 WBC 23.6 H RBC 3.54 L Hgb Hct MCV MCH MCHC RDW 17.8 H Plt Count Lymph % (Auto) [place] % (Auto) Lymph # (Auto) [place] # (Auto) Baso # (Auto) Seg Neutrophils % Seg Neuts % (Manual) 93.0 H Lymphocytes % (Manual) 3.0 L Monocytes % (Manual) Nucleated RBC % 1.0 H Seg Neutrophils # Seg Neutrophils # Man 21.9 H Lymphocytes # (Manual) 0.7 L Monocytes # (Manual) 0.9 H PT INR APTT Fibrinogen D-Dimer ABG pH POC ABG pCO2 POC ABG pO2 ABG pO2 ABG HCO3 ABG Base Excess ABG Hemoglobin ABG Oxyhemoglobin ABG Sodium ABG Potassium ABG Chloride ABG Glucose VBG pH Oxyhemoglobin Carboxyhemoglobin Sodium Potassium Chloride Carbon Dioxide BUN 28 H Creatinine 1.6 H Glucose 141 H POC Glucose 126 H Lactic Acid Calcium 7.6 L Ionized Calcium Phosphorus Magnesium AST 162 H ALT 103 H Alkaline Phosphatase Lactate Dehydrogenase NT-Pro-B Natriuret Pep Total Protein 5.4 L Albumin 2.7 L Arterial Blood Glucose Arterial Blood Ionized Calcium Urine WBC (Auto) Vancomycin Trough Phenytoin Crossmatch 10/08/20 10/08/20 10/08/20 11:20 16:05 20:14 WBC RBC Hgb Hct MCV MCH MCHC RDW Plt Count Lymph % (Auto) [place] % (Auto) Lymph # (Auto) [place] # (Auto) Baso # (Auto) Seg Neutrophils % Seg Neuts % (Manual) Lymphocytes % (Manual) Monocytes % (Manual) Nucleated RBC % Seg Neutrophils # Seg Neutrophils # Man Lymphocytes # (Manual) Monocytes # (Manual) PT INR APTT Fibrinogen D-Dimer ABG pH POC ABG pCO2 POC ABG pO2 ABG pO2 ABG HCO3 ABG Base Excess ABG Hemoglobin ABG Oxyhemoglobin ABG Sodium ABG Potassium ABG Chloride ABG Glucose VBG pH Oxyhemoglobin Carboxyhemoglobin Sodium Potassium Chloride Carbon Dioxide BUN Creatinine Glucose POC Glucose 127 H 172 H 147 H Lactic Acid Calcium Ionized Calcium Phosphorus Magnesium AST ALT Alkaline Phosphatase Lactate Dehydrogenase NT-Pro-B Natriuret Pep Total Protein Albumin Arterial Blood Glucose Arterial Blood Ionized Calcium Urine WBC (Auto) Vancomycin Trough Phenytoin Crossmatch 10/08/20 10/08/20 10/09/20 21:27 23:24 02:10 WBC RBC Hgb Hct MCV MCH MCHC RDW Plt Count Lymph % (Auto) [place] % (Auto) Lymph # (Auto) [place] # (Auto) Baso # (Auto) Seg Neutrophils % Seg Neuts % (Manual) Lymphocytes % (Manual) Monocytes % (Manual) Nucleated RBC % Seg Neutrophils # Seg Neutrophils # Man Lymphocytes # (Manual) Monocytes # (Manual) PT INR APTT Fibrinogen D-Dimer ABG pH POC ABG pCO2 POC ABG pO2 ABG pO2 ABG HCO3 ABG Base Excess ABG Hemoglobin ABG Oxyhemoglobin ABG Sodium ABG Potassium ABG Chloride ABG Glucose VBG pH Oxyhemoglobin Carboxyhemoglobin Sodium Potassium Chloride Carbon Dioxide BUN Creatinine Glucose POC Glucose 140 H 135 H 111 H Lactic Acid Calcium Ionized Calcium Phosphorus Magnesium AST ALT Alkaline Phosphatase Lactate Dehydrogenase NT-Pro-B Natriuret Pep Total Protein Albumin Arterial Blood Glucose Arterial Blood Ionized Calcium Urine WBC (Auto) Vancomycin Trough Phenytoin Crossmatch 10/09/20 10/09/20 10/09/20 03:44 04:39 05:46 WBC 19.7 H RBC 3.51 L Hgb Hct MCV MCH MCHC RDW 17.7 H Plt Count Lymph % (Auto) [place] % (Auto) Lymph # (Auto) [place] # (Auto) Baso # (Auto) Seg Neutrophils % Seg Neuts % (Manual) 86.0 H Lymphocytes % (Manual) 4.0 L Monocytes % (Manual) 9.0 H Nucleated RBC % Seg Neutrophils # Seg Neutrophils # Man 16.9 H Lymphocytes # (Manual) 0.8 L Monocytes # (Manual) 1.8 H PT INR APTT Fibrinogen D-Dimer ABG pH 7.513 H POC ABG pCO2 POC ABG pO2 33.6 L ABG pO2 ABG HCO3 ABG Base Excess ABG Hemoglobin 11.1 L ABG Oxyhemoglobin 70.2 L ABG Sodium ABG Potassium 3.2 L ABG Chloride 108.0 H ABG Glucose 108 H VBG pH Oxyhemoglobin Carboxyhemoglobin Sodium Potassium Chloride Carbon Dioxide BUN Creatinine Glucose POC Glucose 109 H Lactic Acid Calcium Ionized Calcium Phosphorus Magnesium AST ALT Alkaline Phosphatase Lactate Dehydrogenase NT-Pro-B Natriuret Pep Total Protein Albumin Arterial Blood Glucose 108 H Arterial Blood Ionized Calcium 4.3 L Urine WBC (Auto) Vancomycin Trough Phenytoin Crossmatch 10/09/20 10/10/20 10/10/20 05:46 04:00 04:00 WBC 18.4 H RBC Hgb Hct MCV MCH MCHC RDW 17.5 H Plt Count Lymph % (Auto) 9.8 L [place] % (Auto) 8.8 H Lymph # (Auto) [place] # (Auto) 1.6 H Baso # (Auto) Seg Neutrophils % 80.0 H Seg Neuts % (Manual) Lymphocytes % (Manual) Monocytes % (Manual) Nucleated RBC % Seg Neutrophils # 14.7 H Seg Neutrophils # Man Lymphocytes # (Manual) Monocytes # (Manual) PT INR APTT Fibrinogen D-Dimer ABG pH POC ABG pCO2 POC ABG pO2 ABG pO2 ABG HCO3 ABG Base Excess ABG Hemoglobin ABG Oxyhemoglobin ABG Sodium ABG Potassium ABG Chloride ABG Glucose VBG pH Oxyhemoglobin Carboxyhemoglobin Sodium 146 H Potassium 3.2 L 2.9 L* Chloride 108.9 H 112.6 H Carbon Dioxide BUN 34 H 28 H Creatinine 1.4 H 1.3 H Glucose 109 H 101 H POC Glucose Lactic Acid Calcium 7.6 L 7.8 L Ionized Calcium Phosphorus Magnesium AST 137 H 122 H ALT 99 H 81 H Alkaline Phosphatase Lactate Dehydrogenase NT-Pro-B Natriuret Pep Total Protein 5.1 L 5.2 L Albumin 2.6 L 2.7 L Arterial Blood Glucose Arterial Blood Ionized Calcium Urine WBC (Auto) Vancomycin Trough Phenytoin Crossmatch 10/10/20 10/10/20 10/11/20 04:42 09:50 00:44 WBC RBC Hgb Hct MCV MCH MCHC RDW Plt Count Lymph % (Auto) [place] % (Auto) Lymph # (Auto) [place] # (Auto) Baso # (Auto) Seg Neutrophils % Seg Neuts % (Manual) Lymphocytes % (Manual) Monocytes % (Manual) Nucleated RBC % Seg Neutrophils # Seg Neutrophils # Man Lymphocytes # (Manual) Monocytes # (Manual) PT INR APTT Fibrinogen D-Dimer ABG pH 7.534 H POC ABG pCO2 POC ABG pO2 ABG pO2 95.2 H ABG HCO3 ABG Base Excess ABG Hemoglobin 11.3 L ABG Oxyhemoglobin ABG Sodium ABG Potassium ABG Chloride ABG Glucose VBG pH Oxyhemoglobin Carboxyhemoglobin Sodium Potassium Chloride Carbon Dioxide BUN Creatinine Glucose POC Glucose 109 H 106 H Lactic Acid Calcium Ionized Calcium Phosphorus Magnesium AST ALT Alkaline Phosphatase Lactate Dehydrogenase NT-Pro-B Natriuret Pep Total Protein Albumin Arterial Blood Glucose Arterial Blood Ionized Calcium Urine WBC (Auto) Vancomycin Trough Phenytoin Crossmatch 10/11/20 10/11/20 10/11/20 04:00 04:00 06:08 WBC 27.0 H RBC Hgb Hct MCV MCH MCHC RDW 17.7 H Plt Count Lymph % (Auto) 6.3 L [place] % (Auto) Lymph # (Auto) [place] # (Auto) 1.5 H Baso # (Auto) Seg Neutrophils % 87.1 H Seg Neuts % (Manual) Lymphocytes % (Manual) Monocytes % (Manual) Nucleated RBC % Seg Neutrophils # 23.5 H Seg Neutrophils # Man Lymphocytes # (Manual) Monocytes # (Manual) PT INR APTT Fibrinogen D-Dimer ABG pH POC ABG pCO2 POC ABG pO2 ABG pO2 ABG HCO3 ABG Base Excess ABG Hemoglobin ABG Oxyhemoglobin ABG Sodium ABG Potassium ABG Chloride ABG Glucose VBG pH Oxyhemoglobin Carboxyhemoglobin Sodium Potassium 3.2 L Chloride 110.4 H Carbon Dioxide 19 L BUN 22 H Creatinine Glucose 116 H POC Glucose 107 H Lactic Acid Calcium 7.7 L Ionized Calcium Phosphorus Magnesium 1.60 L AST ALT Alkaline Phosphatase Lactate Dehydrogenase NT-Pro-B Natriuret Pep Total Protein Albumin Arterial Blood Glucose Arterial Blood Ionized Calcium Urine WBC (Auto) Vancomycin Trough Phenytoin Crossmatch 10/11/20 10/11/20 10/12/20 11:41 13:26 03:52 WBC RBC Hgb Hct MCV MCH MCHC RDW Plt Count Lymph % (Auto) [place] % (Auto) Lymph # (Auto) [place] # (Auto) Baso # (Auto) Seg Neutrophils % Seg Neuts % (Manual) Lymphocytes % (Manual) Monocytes % (Manual) Nucleated RBC % Seg Neutrophils # Seg Neutrophils # Man Lymphocytes # (Manual) Monocytes # (Manual) PT INR APTT Fibrinogen D-Dimer ABG pH POC ABG pCO2 POC ABG pO2 ABG pO2 ABG HCO3 ABG Base Excess ABG Hemoglobin ABG Oxyhemoglobin ABG Sodium ABG Potassium ABG Chloride ABG Glucose VBG pH Oxyhemoglobin Carboxyhemoglobin Sodium Potassium Chloride Carbon Dioxide BUN Creatinine Glucose POC Glucose 116 H 114 H Lactic Acid Calcium Ionized Calcium Phosphorus Magnesium AST ALT Alkaline Phosphatase Lactate Dehydrogenase NT-Pro-B Natriuret Pep Total Protein Albumin Arterial Blood Glucose Arterial Blood Ionized Calcium Urine WBC (Auto) 24.0 H Vancomycin Trough Phenytoin Crossmatch 10/12/20 10/12/20 10/12/20 04:24 14:47 21:33 WBC RBC Hgb Hct MCV MCH MCHC RDW Plt Count Lymph % (Auto) [place] % (Auto) Lymph # (Auto) [place] # (Auto) Baso # (Auto) Seg Neutrophils % Seg Neuts % (Manual) Lymphocytes % (Manual) Monocytes % (Manual) Nucleated RBC % Seg Neutrophils # Seg Neutrophils # Man Lymphocytes # (Manual) Monocytes # (Manual) PT INR APTT Fibrinogen D-Dimer ABG pH POC ABG pCO2 POC ABG pO2 ABG pO2 ABG HCO3 ABG Base Excess ABG Hemoglobin ABG Oxyhemoglobin ABG Sodium ABG Potassium ABG Chloride ABG Glucose VBG pH Oxyhemoglobin Carboxyhemoglobin Sodium Potassium Chloride 109.9 H Carbon Dioxide 13 L BUN 18 H Creatinine Glucose 119 H POC Glucose 107 H Lactic Acid Calcium 7.6 L Ionized Calcium Phosphorus Magnesium 1.60 L AST ALT Alkaline Phosphatase Lactate Dehydrogenase NT-Pro-B Natriuret Pep Total Protein Albumin Arterial Blood Glucose Arterial Blood Ionized Calcium Urine WBC (Auto) Vancomycin Trough Phenytoin Crossmatch 10/12/20 10/12/20 10/13/20 Unknown Unknown 07:00 WBC 24.3 H RBC 3.38 L Hgb 9.8 L Hct MCV MCH MCHC RDW 18.7 H Plt Count Lymph % (Auto) [place] % (Auto) Lymph # (Auto) [place] # (Auto) Baso # (Auto) Seg Neutrophils % Seg Neuts % (Manual) 93.5 H Lymphocytes % (Manual) 4.5 L Monocytes % (Manual) Nucleated RBC % Seg Neutrophils # Seg Neutrophils # Man 22.7 H Lymphocytes # (Manual) 1.1 L Monocytes # (Manual) PT INR APTT Fibrinogen D-Dimer ABG pH POC ABG pCO2 POC ABG pO2 ABG pO2 ABG HCO3 ABG Base Excess ABG Hemoglobin ABG Oxyhemoglobin ABG Sodium ABG Potassium ABG Chloride ABG Glucose VBG pH Oxyhemoglobin Carboxyhemoglobin Sodium 135 L D Potassium 3.1 L Chloride Carbon Dioxide 17 L BUN Creatinine Glucose 510 H* POC Glucose Lactic Acid Calcium 7.2 L Ionized Calcium Phosphorus Magnesium AST ALT Alkaline Phosphatase Lactate Dehydrogenase NT-Pro-B Natriuret Pep Total Protein Albumin Arterial Blood Glucose Arterial Blood Ionized Calcium Urine WBC (Auto) Vancomycin Trough Phenytoin 5.7 L Crossmatch 10/13/20 10/13/20 10/13/20 07:00 07:00 07:18 WBC 23.6 H RBC 3.26 L Hgb 9.4 L Hct 28.7 L MCV MCH MCHC RDW 18.3 H Plt Count Lymph % (Auto) [place] % (Auto) Lymph # (Auto) [place] # (Auto) Baso # (Auto) Seg Neutrophils % Seg Neuts % (Manual) Lymphocytes % (Manual) Monocytes % (Manual) Nucleated RBC % Seg Neutrophils # Seg Neutrophils # Man Lymphocytes # (Manual) Monocytes # (Manual) PT INR APTT Fibrinogen D-Dimer ABG pH 7.473 H POC ABG pCO2 20.7 L POC ABG pO2 137.9 H ABG pO2 ABG HCO3 ABG Base Excess ABG Hemoglobin 11.2 L ABG Oxyhemoglobin 98.3 H ABG Sodium 135.9 L ABG Potassium ABG Chloride 111.0 H ABG Glucose 109 H VBG pH Oxyhemoglobin Carboxyhemoglobin 0.3 L Sodium 135 L Potassium 3.5 L Chloride 109.1 H Carbon Dioxide 18 L BUN Creatinine Glucose POC Glucose Lactic Acid Calcium 7.3 L Ionized Calcium Phosphorus Magnesium 1.60 L AST ALT Alkaline Phosphatase Lactate Dehydrogenase NT-Pro-B Natriuret Pep Total Protein Albumin Arterial Blood Glucose 109 H Arterial Blood Ionized Calcium Urine WBC (Auto) Vancomycin Trough Phenytoin Crossmatch 10/14/20 10/14/20 10/15/20 04:00 04:00 05:50 WBC 28.6 H 23.2 H RBC 3.61 L 3.43 L Hgb 9.9 L Hct 30.0 L MCV MCH MCHC RDW 18.3 H 18.2 H Plt Count Lymph % (Auto) [place] % (Auto) Lymph # (Auto) [place] # (Auto) Baso # (Auto) Seg Neutrophils % Seg Neuts % (Manual) 88.0 H 90.0 H Lymphocytes % (Manual) 5.0 L 4.0 L Monocytes % (Manual) Nucleated RBC % Seg Neutrophils # Seg Neutrophils # Man 25.2 H 20.9 H Lymphocytes # (Manual) 0.9 L Monocytes # (Manual) 1.4 H 0.9 H PT INR APTT Fibrinogen D-Dimer ABG pH POC ABG pCO2 POC ABG pO2 ABG pO2 ABG HCO3 ABG Base Excess ABG Hemoglobin ABG Oxyhemoglobin ABG Sodium ABG Potassium ABG Chloride ABG Glucose VBG pH Oxyhemoglobin Carboxyhemoglobin Sodium Potassium Chloride 109.9 H Carbon Dioxide 17 L BUN Creatinine Glucose POC Glucose Lactic Acid Calcium Ionized Calcium Phosphorus Magnesium AST ALT Alkaline Phosphatase Lactate Dehydrogenase NT-Pro-B Natriuret Pep Total Protein Albumin Arterial Blood Glucose Arterial Blood Ionized Calcium Urine WBC (Auto) Vancomycin Trough Phenytoin Crossmatch 10/15/20 10/16/20 10/17/20 05:50 11:57 04:57 WBC 15.2 H RBC 3.43 L Hgb Hct MCV MCH MCHC RDW 18.1 H Plt Count Lymph % (Auto) [place] % (Auto) Lymph # (Auto) [place] # (Auto) Baso # (Auto) Seg Neutrophils % Seg Neuts % (Manual) Lymphocytes % (Manual) Monocytes % (Manual) Nucleated RBC % Seg Neutrophils # Seg Neutrophils # Man Lymphocytes # (Manual) Monocytes # (Manual) PT INR APTT Fibrinogen D-Dimer ABG pH POC ABG pCO2 POC ABG pO2 ABG pO2 ABG HCO3 ABG Base Excess ABG Hemoglobin ABG Oxyhemoglobin ABG Sodium ABG Potassium ABG Chloride ABG Glucose VBG pH Oxyhemoglobin Carboxyhemoglobin Sodium Potassium Chloride 110.3 H Carbon Dioxide 18 L BUN Creatinine Glucose 105 H POC Glucose 111 H Lactic Acid Calcium 8.3 L Ionized Calcium Phosphorus Magnesium AST ALT Alkaline Phosphatase Lactate Dehydrogenase NT-Pro-B Natriuret Pep Total Protein Albumin Arterial Blood Glucose Arterial Blood Ionized Calcium Urine WBC (Auto) Vancomycin Trough Phenytoin Crossmatch 10/17/20 10/17/20 10/18/20 05:25 21:16 01:31 WBC RBC Hgb Hct MCV MCH MCHC RDW Plt Count Lymph % (Auto) [place] % (Auto) Lymph # (Auto) [place] # (Auto) Baso # (Auto) Seg Neutrophils % Seg Neuts % (Manual) Lymphocytes % (Manual) Monocytes % (Manual) Nucleated RBC % Seg Neutrophils # Seg Neutrophils # Man Lymphocytes # (Manual) Monocytes # (Manual) PT INR APTT Fibrinogen D-Dimer ABG pH POC ABG pCO2 POC ABG pO2 ABG pO2 ABG HCO3 ABG Base Excess ABG Hemoglobin ABG Oxyhemoglobin ABG Sodium ABG Potassium ABG Chloride ABG Glucose VBG pH Oxyhemoglobin Carboxyhemoglobin Sodium Potassium Chloride Carbon Dioxide BUN Creatinine Glucose POC Glucose 107 H 106 H 119 H Lactic Acid Calcium Ionized Calcium Phosphorus Magnesium AST ALT Alkaline Phosphatase Lactate Dehydrogenase NT-Pro-B Natriuret Pep Total Protein Albumin Arterial Blood Glucose Arterial Blood Ionized Calcium Urine WBC (Auto) Vancomycin Trough Phenytoin Crossmatch 10/18/20 10/18/20 10/19/20 05:45 11:23 01:14 WBC RBC Hgb Hct MCV MCH MCHC RDW Plt Count Lymph % (Auto) [place] % (Auto) Lymph # (Auto) [place] # (Auto) Baso # (Auto) Seg Neutrophils % Seg Neuts % (Manual) Lymphocytes % (Manual) Monocytes % (Manual) Nucleated RBC % Seg Neutrophils # Seg Neutrophils # Man Lymphocytes # (Manual) Monocytes # (Manual) PT INR APTT Fibrinogen D-Dimer ABG pH POC ABG pCO2 POC ABG pO2 ABG pO2 ABG HCO3 ABG Base Excess ABG Hemoglobin ABG Oxyhemoglobin ABG Sodium ABG Potassium ABG Chloride ABG Glucose VBG pH Oxyhemoglobin Carboxyhemoglobin Sodium Potassium Chloride Carbon Dioxide BUN Creatinine Glucose POC Glucose 106 H 115 H 108 H Lactic Acid Calcium Ionized Calcium Phosphorus Magnesium AST ALT Alkaline Phosphatase Lactate Dehydrogenase NT-Pro-B Natriuret Pep Total Protein Albumin Arterial Blood Glucose Arterial Blood Ionized Calcium Urine WBC (Auto) Vancomycin Trough Phenytoin Crossmatch 10/19/20 10/20/20 10/20/20 09:57 05:40 07:59 WBC RBC Hgb Hct MCV MCH MCHC RDW Plt Count Lymph % (Auto) Wilkes % (Auto) Lymph # (Auto) Wilkes # (Auto) Baso # (Auto) Seg Neutrophils % Seg Neuts % (Manual) Lymphocytes % (Manual) Monocytes % (Manual) Nucleated RBC % Seg Neutrophils # Seg Neutrophils # Man Lymphocytes # (Manual) Monocytes # (Manual) PT INR APTT Fibrinogen D-Dimer ABG pH POC ABG pCO2 POC ABG pO2 ABG pO2 ABG HCO3 ABG Base Excess ABG Hemoglobin ABG Oxyhemoglobin ABG Sodium ABG Potassium ABG Chloride ABG Glucose VBG pH Oxyhemoglobin Carboxyhemoglobin Sodium Potassium Chloride Carbon Dioxide BUN Creatinine Glucose 106 H POC Glucose 122 H 109 H Lactic Acid Calcium Ionized Calcium Phosphorus Magnesium AST ALT Alkaline Phosphatase Lactate Dehydrogenase NT-Pro-B Natriuret Pep Total Protein Albumin Arterial Blood Glucose Arterial Blood Ionized Calcium Urine WBC (Auto) Vancomycin Trough Phenytoin Crossmatch 10/20/20 10/20/20 10/21/20 16:52 16:52 13:54 WBC 18.8 H 17.0 H RBC Hgb Hct MCV MCH MCHC RDW 17.7 H 17.8 H Plt Count 547 H 544 H Lymph % (Auto) 11.2 L [place] % (Auto) 8.1 H Lymph # (Auto) [place] # (Auto) 1.5 H Baso # (Auto) 0.2 H Seg Neutrophils % 78.8 H Seg Neuts % (Manual) Lymphocytes % (Manual) Monocytes % (Manual) Nucleated RBC % Seg Neutrophils # 14.8 H Seg Neutrophils # Man Lymphocytes # (Manual) Monocytes # (Manual) PT INR APTT Fibrinogen D-Dimer ABG pH POC ABG pCO2 POC ABG pO2 ABG pO2 ABG HCO3 ABG Base Excess ABG Hemoglobin ABG Oxyhemoglobin ABG Sodium ABG Potassium ABG Chloride ABG Glucose VBG pH Oxyhemoglobin Carboxyhemoglobin Sodium Potassium Chloride Carbon Dioxide BUN Creatinine Glucose POC Glucose Lactic Acid Calcium Ionized Calcium Phosphorus Magnesium AST ALT Alkaline Phosphatase Lactate Dehydrogenase NT-Pro-B Natriuret Pep Total Protein Albumin Arterial Blood Glucose Arterial Blood Ionized Calcium Urine WBC (Auto) Vancomycin Trough 34.5 H Phenytoin Crossmatch 10/21/20 10/22/20 10/23/20 13:54 07:26 05:34 WBC 18.7 H 13.0 H RBC 3.64 L 3.50 L Hgb Hct 30.0 L MCV MCH MCHC 35 H RDW 17.7 H 17.6 H Plt Count 502 H 503 H Lymph % (Auto) [place] % (Auto) Lymph # (Auto) [place] # (Auto) Baso # (Auto) Seg Neutrophils % Seg Neuts % (Manual) Lymphocytes % (Manual) Monocytes % (Manual) Nucleated RBC % Seg Neutrophils # Seg Neutrophils # Man Lymphocytes # (Manual) Monocytes # (Manual) PT INR APTT Fibrinogen D-Dimer ABG pH POC ABG pCO2 POC ABG pO2 ABG pO2 ABG HCO3 ABG Base Excess ABG Hemoglobin ABG Oxyhemoglobin ABG Sodium ABG Potassium ABG Chloride ABG Glucose VBG pH Oxyhemoglobin Carboxyhemoglobin Sodium 136 L Potassium Chloride Carbon Dioxide BUN Creatinine Glucose 120 H POC Glucose Lactic Acid Calcium Ionized Calcium Phosphorus Magnesium AST ALT Alkaline Phosphatase Lactate Dehydrogenase NT-Pro-B Natriuret Pep Total Protein Albumin Arterial Blood Glucose Arterial Blood Ionized Calcium Urine WBC (Auto) Vancomycin Trough Phenytoin Crossmatch 10/23/20 10/26/20 10/27/20 05:34 10:30 07:53 WBC 13.6 H RBC 3.38 L Hgb 10.0 L Hct 28.8 L MCV MCH MCHC 35 H RDW 17.6 H Plt Count Lymph % (Auto) [place] % (Auto) Lymph # (Auto) [place] # (Auto) Baso # (Auto) Seg Neutrophils % Seg Neuts % (Manual) Lymphocytes % (Manual) Monocytes % (Manual) Nucleated RBC % Seg Neutrophils # Seg Neutrophils # Man Lymphocytes # (Manual) Monocytes # (Manual) PT INR APTT Fibrinogen D-Dimer ABG pH 7.459 H POC ABG pCO2 POC ABG pO2 ABG pO2 112.2 H ABG HCO3 ABG Base Excess ABG Hemoglobin ABG Oxyhemoglobin ABG Sodium ABG Potassium ABG Chloride ABG Glucose VBG pH Oxyhemoglobin Carboxyhemoglobin Sodium 135 L Potassium Chloride Carbon Dioxide BUN Creatinine Glucose 105 H POC Glucose Lactic Acid Calcium Ionized Calcium Phosphorus Magnesium AST ALT Alkaline Phosphatase Lactate Dehydrogenase NT-Pro-B Natriuret Pep Total Protein Albumin Arterial Blood Glucose Arterial Blood Ionized Calcium Urine WBC (Auto) Vancomycin Trough Phenytoin Crossmatch 10/27/20 10/27/20 10/28/20 07:53 11:31 05:19 WBC RBC Hgb Hct MCV MCH MCHC RDW Plt Count Lymph % (Auto) [place] % (Auto) Lymph # (Auto) [place] # (Auto) Baso # (Auto) Seg Neutrophils % Seg Neuts % (Manual) Lymphocytes % (Manual) Monocytes % (Manual) Nucleated RBC % Seg Neutrophils # Seg Neutrophils # Man Lymphocytes # (Manual) Monocytes # (Manual) PT INR APTT Fibrinogen D-Dimer ABG pH POC ABG pCO2 POC ABG pO2 ABG pO2 ABG HCO3 ABG Base Excess ABG Hemoglobin ABG Oxyhemoglobin ABG Sodium ABG Potassium ABG Chloride ABG Glucose VBG pH Oxyhemoglobin Carboxyhemoglobin Sodium Potassium Chloride Carbon Dioxide BUN 20 H Creatinine Glucose 112 H POC Glucose 113 H 112 H Lactic Acid Calcium Ionized Calcium Phosphorus Magnesium AST 83 H ALT Alkaline Phosphatase Lactate Dehydrogenase NT-Pro-B Natriuret Pep Total Protein Albumin 3.8 L Arterial Blood Glucose Arterial Blood Ionized Calcium Urine WBC (Auto) Vancomycin Trough Phenytoin Crossmatch 10/29/20 10/29/20 10/29/20 07:56 07:56 11:37 WBC 13.6 H RBC Hgb Hct MCV MCH MCHC RDW 17.0 H Plt Count Lymph % (Auto) [place] % (Auto) Lymph # (Auto) [place] # (Auto) Baso # (Auto) Seg Neutrophils % Seg Neuts % (Manual) 80.0 H Lymphocytes % (Manual) Monocytes % (Manual) Nucleated RBC % Seg Neutrophils # Seg Neutrophils # Man 10.9 H Lymphocytes # (Manual) Monocytes # (Manual) PT INR APTT Fibrinogen D-Dimer ABG pH POC ABG pCO2 POC ABG pO2 ABG pO2 ABG HCO3 ABG Base Excess ABG Hemoglobin ABG Oxyhemoglobin ABG Sodium ABG Potassium ABG Chloride ABG Glucose VBG pH Oxyhemoglobin Carboxyhemoglobin Sodium Potassium Chloride Carbon Dioxide BUN Creatinine Glucose POC Glucose 108 H Lactic Acid Calcium Ionized Calcium Phosphorus 4.70 H Magnesium AST ALT Alkaline Phosphatase Lactate Dehydrogenase NT-Pro-B Natriuret Pep Total Protein Albumin Arterial Blood Glucose Arterial Blood Ionized Calcium Urine WBC (Auto) Vancomycin Trough Phenytoin Crossmatch 10/29/20 10/30/20 10/30/20 13:32 12:11 17:19 WBC RBC Hgb Hct MCV MCH MCHC RDW Plt Count Lymph % (Auto) [place] % (Auto) Lymph # (Auto) [place] # (Auto) Baso # (Auto) Seg Neutrophils % Seg Neuts % (Manual) Lymphocytes % (Manual) Monocytes % (Manual) Nucleated RBC % Seg Neutrophils # Seg Neutrophils # Man Lymphocytes # (Manual) Monocytes # (Manual) PT INR APTT Fibrinogen D-Dimer ABG pH POC ABG pCO2 POC ABG pO2 ABG pO2 ABG HCO3 ABG Base Excess ABG Hemoglobin ABG Oxyhemoglobin ABG Sodium ABG Potassium ABG Chloride ABG Glucose VBG pH Oxyhemoglobin Carboxyhemoglobin Sodium Potassium Chloride Carbon Dioxide BUN Creatinine Glucose POC Glucose 108 H 106 H 107 H Lactic Acid Calcium Ionized Calcium Phosphorus Magnesium AST ALT Alkaline Phosphatase Lactate Dehydrogenase NT-Pro-B Natriuret Pep Total Protein Albumin Arterial Blood Glucose Arterial Blood Ionized Calcium Urine WBC (Auto) Vancomycin Trough Phenytoin Crossmatch 10/31/20 10/31/20 11/01/20 03:20 05:43 04:55 WBC RBC Hgb Hct MCV MCH MCHC RDW Plt Count Lymph % (Auto) [place] % (Auto) Lymph # (Auto) [place] # (Auto) Baso # (Auto) Seg Neutrophils % Seg Neuts % (Manual) Lymphocytes % (Manual) Monocytes % (Manual) Nucleated RBC % Seg Neutrophils # Seg Neutrophils # Man Lymphocytes # (Manual) Monocytes # (Manual) PT INR APTT Fibrinogen D-Dimer ABG pH POC ABG pCO2 POC ABG pO2 ABG pO2 ABG HCO3 ABG Base Excess ABG Hemoglobin ABG Oxyhemoglobin ABG Sodium ABG Potassium ABG Chloride ABG Glucose VBG pH Oxyhemoglobin Carboxyhemoglobin Sodium Potassium Chloride Carbon Dioxide BUN Creatinine Glucose POC Glucose 108 H 115 H 108 H Lactic Acid Calcium Ionized Calcium Phosphorus Magnesium AST ALT Alkaline Phosphatase Lactate Dehydrogenase NT-Pro-B Natriuret Pep Total Protein Albumin Arterial Blood Glucose Arterial Blood Ionized Calcium Urine WBC (Auto) Vancomycin Trough Phenytoin Crossmatch 11/01/20 11/01/20 11/01/20 05:01 16:47 21:36 WBC RBC Hgb Hct MCV MCH MCHC RDW Plt Count Lymph % (Auto) [place] % (Auto) Lymph # (Auto) [place] # (Auto) Baso # (Auto) Seg Neutrophils % Seg Neuts % (Manual) Lymphocytes % (Manual) Monocytes % (Manual) Nucleated RBC % Seg Neutrophils # Seg Neutrophils # Man Lymphocytes # (Manual) Monocytes # (Manual) PT INR APTT Fibrinogen D-Dimer ABG pH POC ABG pCO2 POC ABG pO2 ABG pO2 ABG HCO3 ABG Base Excess ABG Hemoglobin ABG Oxyhemoglobin ABG Sodium ABG Potassium ABG Chloride ABG Glucose VBG pH Oxyhemoglobin Carboxyhemoglobin Sodium 135 L Potassium Chloride Carbon Dioxide BUN Creatinine Glucose POC Glucose 116 H 112 H Lactic Acid Calcium Ionized Calcium Phosphorus Magnesium AST 93 H ALT Alkaline Phosphatase 132 H Lactate Dehydrogenase NT-Pro-B Natriuret Pep Total Protein Albumin 3.6 L Arterial Blood Glucose Arterial Blood Ionized Calcium Urine WBC (Auto) Vancomycin Trough Phenytoin Crossmatch 11/02/20 11/03/20 11/04/20 17:45 21:49 05:00 WBC 13.8 H RBC Hgb Hct MCV MCH MCHC RDW 16.6 H Plt Count Lymph % (Auto) 11.8 L [place] % (Auto) 11.0 H Lymph # (Auto) [place] # (Auto) 1.5 H Baso # (Auto) Seg Neutrophils % 75.1 H Seg Neuts % (Manual) Lymphocytes % (Manual) Monocytes % (Manual) Nucleated RBC % Seg Neutrophils # 10.4 H Seg Neutrophils # Man Lymphocytes # (Manual) Monocytes # (Manual) PT INR APTT Fibrinogen D-Dimer ABG pH POC ABG pCO2 POC ABG pO2 ABG pO2 ABG HCO3 ABG Base Excess ABG Hemoglobin ABG Oxyhemoglobin ABG Sodium ABG Potassium ABG Chloride ABG Glucose VBG pH Oxyhemoglobin Carboxyhemoglobin Sodium Potassium Chloride Carbon Dioxide BUN Creatinine Glucose POC Glucose 107 H 109 H Lactic Acid Calcium Ionized Calcium Phosphorus Magnesium AST ALT Alkaline Phosphatase Lactate Dehydrogenase NT-Pro-B Natriuret Pep Total Protein Albumin Arterial Blood Glucose Arterial Blood Ionized Calcium Urine WBC (Auto) Vancomycin Trough Phenytoin Crossmatch 11/04/20 11/04/20 05:00 06:03 WBC RBC Hgb Hct MCV MCH MCHC RDW Plt Count Lymph % (Auto) [place] % (Auto) Lymph # (Auto) [place] # (Auto) Baso # (Auto) Seg Neutrophils % Seg Neuts % (Manual) Lymphocytes % (Manual) Monocytes % (Manual) Nucleated RBC % Seg Neutrophils # Seg Neutrophils # Man Lymphocytes # (Manual) Monocytes # (Manual) PT INR APTT Fibrinogen D-Dimer ABG pH POC ABG pCO2 POC ABG pO2 ABG pO2 ABG HCO3 ABG Base Excess ABG Hemoglobin ABG Oxyhemoglobin ABG Sodium ABG Potassium ABG Chloride ABG Glucose VBG pH Oxyhemoglobin Carboxyhemoglobin Sodium Potassium Chloride Carbon Dioxide BUN Creatinine Glucose 112 H POC Glucose 107 H Lactic Acid Calcium Ionized Calcium Phosphorus Magnesium AST 90 H ALT Alkaline Phosphatase Lactate Dehydrogenase NT-Pro-B Natriuret Pep Total Protein Albumin 3.8 L Arterial Blood Glucose Arterial Blood Ionized Calcium Urine WBC (Auto) Vancomycin Trough Phenytoin Crossmatch
[2020-11-04] MEDS: TOPIRAMATE TAB 25 MG TAB PO SCH ×2 (12:27→21:13)
[2020-11-04] MEDS: DEXTROSE 10% IN WATER 1,000 ML IV SCH (12:47)
--- NOTE | 2020-11-04 13:30 | Progress Note ---
Assessment and Plan - Patient Problems (1) Acute respiratory failure with hypoxia Current Visit: Yes Status: Acute (2) Cardiac arrest Current Visit: Yes Status: Resolved (3) Encephalopathy Current Visit: Yes Status: Acute (4) Fever Current Visit: Yes Status: Acute Plan to address problem: no new recommendations per Pulm CC/Hospitalist team -continue to monitor agree with management as outlined. Subjective - Subjective Principal diagnosis: Eclampsia/HELLP Syndrome, ADOLPH, DIC; s/p , s/p supracervical hyst Interval history: 30y/o POD #32 s/p emergent section and supracervical hysterectomy for eclampsia and DIC. s/p Percutaneous tracheostomy, Fiberoptic bronchoscopy, PEG tube placement. Currently on Lovenox for SVT and DVT in right upper extremity. Afebrile overnight. Pt remains unresponsive, spontaneous movement in right lower extremity noted. Objective - Vital Signs Latest vital signs: Vital Signs Temp Pulse Pulse Resp BP Pulse Ox Pulse Ox 11/04/20 09:25 116 H 117/68 11/04/20 08:00 98.7 F 11/04/20 06:23 94 H 20 108/57 11/04/20 06:00 92 H 23 108/57 100 11/04/20 05:00 117 H 17 118/63 100 11/04/20 04:30 106 H 100 11/04/20 04:00 98.1 F 113 H 19 116/62 100 11/04/20 03:00 113 H 13 114/70 100 11/04/20 02:12 97 H 105/50 11/04/20 02:00 94 H 22 105/50 100 11/04/20 01:00 120 H 13 114/80 100 11/04/20 00:43 100 H 11/04/20 00:41 21 11/04/20 00:00 99.0 F 116 H 16 109/70 99 11/03/20 23:42 112 H 123/63 11/03/20 23:01 117 H 13 123/63 99 11/03/20 22:00 132/76 100 11/03/20 21:01 129/69 100 11/03/20 20:01 139/40 100 11/03/20 20:00 100.3 F H 11/03/20 19:47 141/66 99 11/03/20 19:11 112 H 11/03/20 19:00 113 H 21 137/71 100 11/03/20 18:00 110 H 22 141/66 100 11/03/20 17:00 108 H 14 122/70 100 11/03/20 16:59 110 H 122/70 11/03/20 16:00 99.7 F H 98 H 101 H 23 131/60 99 11/03/20 15:53 100 11/03/20 15:48 100 11/03/20 15:01 97 H 26 H 123/60 100 11/03/20 14:00 103 H 31 H 139/61 100 Intake and Output 11/03/20 11/04/20 11/04/20 22:59 06:59 14:59 Intake Total 1680 680 982.5 Output Total 1 Balance 1680 679 982.5 Intake: IV 1000 982.5 D10w 1,000 ml @ 75 mls/hr 1000 982.5 IV DIRECT ERINN Rx#: [id number] Tube Feeding 480 480 Blood Product 100 Other 100 200 Output: Gastric Drainage 1 Oral 1 Other: Total, Intake Amount 160 160 Total, Output Amount 50 Voiding Method Incontinent External Female Catheter # Voids Void 2 4 # Bowel Movements 50 Weight 107.3 kg - Labs Labs: Abnormal lab results 11/03/20 11/04/20 11/04/20 Range/Units 21:49 05:00 05:00 WBC 13.8 H (4.5-11.0) K/mm3 RDW 16.6 H (13.2-15.2) % Lymph % (Auto) 11.8 L (13.4-35.0) % [place] % (Auto) 11.0 H (0.0-7.3) % [place] # (Auto) 1.5 H (0.0-0.8) K/mm3 Seg Neutrophils % 75.1 H (40.0-70.0) % Seg Neutrophils # 10.4 H (1.8-7.7) K/mm3 Glucose 112 H (65-100) mg/dL POC Glucose 109 H (70-105) mg/dL AST 90 H (5-40) units/L Albumin 3.8 L (3.9-5) g/dL 11/04/20 Range/Units 06:03 WBC (4.5-11.0) K/mm3 RDW (13.2-15.2) % Lymph % (Auto) (13.4-35.0) % [place] % (Auto) (0.0-7.3) % [place] # (Auto) (0.0-0.8) K/mm3 Seg Neutrophils % (40.0-70.0) % Seg Neutrophils # (1.8-7.7) K/mm3 Glucose (65-100) mg/dL POC Glucose 107 H (70-105) mg/dL AST (5-40) units/L Albumin (3.9-5) g/dL
[2020-11-05] MEDS: hydrALAZINE 25 MG TAB PO SCH ×3 (05:23→21:31)
[2020-11-05] MEDS: SODIUM BICARBONATE 650 MG TAB PO SCH ×3 (08:37→19:42)
--- NOTE | 2020-11-05 08:38 | Progress Note ---
Assessment and Plan - Patient Problems (1) Acute respiratory failure with hypoxia Current Visit: Yes Status: Acute Plan to address problem: continue supportive care (2) Cardiac arrest Current Visit: Yes Status: Resolved (3) DIC (disseminated intravascular coagulation) Current Visit: Yes Status: Acute (4) Encephalopathy Current Visit: Yes Status: Acute (5) Fever Current Visit: Yes Status: Acute Subjective - Subjective Date of service: 11/05/20 Principal diagnosis: Eclampsia/HELLP Syndrome, ADOLPH, DIC; s/p , s/p supracervical hyst Interval history: 30y/o POD #33 s/p supracervical hysterectomy for eclampsia and DIC. Patient remains unresponsive. Last temp spike 100.2 around 1999. Patient receiving oxygen supplementation. Exhibits involuntary movement of extremities however no purposeful response when provoked. Objective - Vital Signs Latest vital signs: Vital Signs Temp Pulse Pulse Resp BP Pulse Ox 11/05/20 06:00 104 H 36 H 127/78 100 11/05/20 05:23 95 H 120/55 11/05/20 05:00 94 H 27 H 120/57 100 11/05/20 04:32 100 11/05/20 04:00 99.8 F H 107 H 104 H 21 132/66 100 11/05/20 03:00 90 26 H 114/61 100 11/05/20 02:00 101 H 37 H 111/56 100 11/05/20 01:00 108 H 12 138/70 99 11/05/20 00:00 99.3 F 98 H 104 H 15 119/58 100 11/04/20 23:00 105 H 13 97/64 100 11/04/20 22:00 100 H 23 111/54 100 11/04/20 21:43 99 H 19 133/67 100 11/04/20 21:13 118 H 98/65 11/04/20 21:11 119 H 98/65 11/04/20 21:00 121 H 41 H 100/70 99 11/04/20 20:00 100.2 F H 121 H 104 H 29 H 108/63 99 11/04/20 19:34 99 11/04/20 19:00 107 H 30 H 106/60 100 11/04/20 18:01 111 H 19 121/59 99 11/04/20 17:00 103 H 14 126/68 100 11/04/20 16:33 95/46 11/04/20 16:32 105 H 95/46 11/04/20 16:01 98 H 30 H 95/46 99 11/04/20 16:00 98.6 F 101 H 11/04/20 15:00 103 H 30 H 113/54 100 11/04/20 14:00 105 H 35 H 106/49 100 11/04/20 13:00 88 22 107/54 100 11/04/20 12:01 101 H 31 H 93/60 100 11/04/20 12:00 100.4 F H 101 H 11/04/20 11:01 94 H 36 H 105/56 100 11/04/20 10:00 100 H 44 H 108/54 100 11/04/20 09:25 116 H 117/68 11/04/20 09:00 111 H 34 H 117/68 100 Intake and Output 11/04/20 11/05/20 11/05/20 22:59 06:59 14:59 Intake Total 680 680 Output Total 1200 Balance 680 -520 Intake: Intake, Free Water 200 200 Tube Feeding 480 480 Output: Urine 850 Void 850 Urine/Stool Mix 350 Other: Total, Intake Amount 60 60 Total, Output Amount 800 Voiding Method External Female Catheter External Female Catheter Weight 106.8 kg - Exam Incision: Present: normal, dry - Labs Labs: Abnormal lab results 11/04/20 11/05/20 Range/Units 23:47 07:47 POC Glucose 121 H 111 H (70-105) mg/dL
[2020-11-05] MEDS: TOPIRAMATE TAB 25 MG TAB PO SCH ×2 (10:59→21:29)
[2020-11-05] MEDS: ENOXAPARIN 40 MG/0.4 ML INJ SUB-Q SCH (10:59)
[2020-11-05] MEDS: FAMOTIDINE 20 MG TAB PO SCH ×2 (10:59→21:29)
[2020-11-05] MEDS: FUROSEMIDE 40 MG TAB PO SCH (10:59)
--- NOTE | 2020-11-05 13:02 | Progress Note ---
Assessment and Plan 30 y/o female with Eclampsia, s/p emergent section with DIC, acute respiratory failure and worsening renal function. 11/05/20: Awaiting outside labs to work up hypoglycemia. Will add some PRN albuterol nebs to see if this will help to thin out her secretions. 11/04/20: No changes. No new recs. Awaiting send out labs to help figure out hypoglycemia. 11/03/20: Continue D10. Await send out labs. 11/02/20: Called lab today to ask how to order these send out labs. Continue D10 along with feeds for now. Stopped robinol and no further reports of increased thickness of secretions. given D10 requirement, do not feel comfortable with transition to the floor. 11/01/20: Will stop Robinol as this may be making secretions to thick. Huge risk for mucous plugging given mental state. Continue D10 and waiting on labs from yesterday. LFT's repeated and AST elevated along with alk phos. Both of these were elevated on admission, then resolved and now are elevated again. In current clinical state, not sure what to make of those numbers. They do not help with trying to figure out hypoglycemia and persistent need for D10. Con [facility] care. 10/31/20: Will order midline for IV team vs peripheral IV's (multiple). Needs access for d10 as we have not been able to figure out why she is so hypoglyemic. Will measure serum insulin levels and C-peptide levels, as well proinsulin. All of these labs are sendouts so will have to call down to ask how to order as they are not coming up in [facility]. Given her requirement for supplemental IV sugar, not a candidate for floor transfer. 10/30/20: Continue step down monitoring for now. If does well the next 24-36 hours, then will consider floor transfer. Really needs to continue PT with PROM. Will speak with CM about options for here now that critical needs are becoming minimal. 10/29/20: Off vent now for 24 hours. Tolerating T-Piece. Will transition to step down for a few days. If does well there, consider transition to floor. Continue PT. Guarded prognosis. 10/28/20: Daily T-piece trials for as long as tolerated. Attempt to push further daily. OT does not do passive range of motion. Per PT note will do passive range of motion with patient. Guarded prognosis. Hoping to wean off vent and transition to floor. 10/27/20: Continue daily T-piece trials for as long as tolerated. Ok with resting on either PSV or full rate if needed at night but need to strengthen her respiratory muscles. PT/OT if possible. Will transition to step down prior to going to floor to insure stability. 10/26/20: Will obtain ABG today. If good, will attempt on T-piece later. Continue PT/OT. Will speak with CM about possibility of LTACH or nursing facility that can take trached patients. 10/23/20: Daily PSV trials for as long as patient will tolerate. Needs PT/OT consult for passive range of motion. 10/22/20: Will start prolonged PSV trials. Attempt to wean from vent and then transition to floor to see if mental status improves. Continue tube feeds. 10/21/20: Trach and peg placed. No sedation. Restart Lovenox for Upper Ext DVT. Restart feeds when surgery states ok to use PEG. C. Diff treatment per ID. Guarded prognosis. 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 Hopeful to wean off vent at least and then can transfer to floor. 10/20/20: NPO after midnight. DVT study just read from 10/14 on yesterday showing upper ext DVT. Started on Lovenox but need to hold therapy until after surgery. could be source of fevers. No sedation. 10/19/20: Stable BP. Will meet/talk with family at noon over the phone with myself and case management. Need to discuss goals of care and what next steps would be. Patient would need trach and peg and transfer to LTACH if family ok with this. Follow up speciation of GNR's in blood. Has been on Cefepime. Continues therapy for C. Diff. Guarded prognosis. Continue daily PSV trials but not ready for extubation secondary to mental state. 10/18/20: Blood pressure is much better with the addition of meds started on yesterday. Need to have family meeting jesica in regards to goals of care. Continue Daily PSV trials but not ready for extubation. Continue therapy for C. Diff per ID. 10/17/20: CT scan was of no help in regards to fevers. C. Diff is positive and BP now is more uncontrolled despite increasing labetalol. Today will increase to 300 TID. Added TID Hydralazine and added PO lasix given her mild pulmonary htn seen on echo. Spoke with mother over the phone and she requests to come see the patient. Given current circumstances, will allow her to come briefly today and then will speak with her at the bedside. No neurology is available at the time and suspect these will be the majority of her questions. Tolerated PSV briefly yesterday and will do again today but not for extended periods as given her mental state she is not a candidate for extubation. I will also ask the mother about jail care (trach and peg) when she comes today. Overall prognosis is guarded to poor. If oral meds cannot regulate blood pressure, may need Cardene drip. Continue therapy for C. Diff per ID. Subjective Date of service: 11/05/20 Principal diagnosis: Eclampsia/HELLP Syndrome, ADOLPH, DIC; s/p , s/p supracervical hyst Interval history: Still with thick secretions despite stopping robinol. No plugging though. Eyes open but not responsive. Objective Vital Signs - 12hr 11/05/20 11/05/20 11/05/20 01:00 02:00 03:00 Temperature Pulse Rate 108 H 101 H 90 Pulse Rate [ From Monitor] Respiratory 12 37 H 26 H Rate Blood Pressure 138/70 111/56 114/61 O2 Sat by Pulse 99 100 100 Oximetry O2 Sat by Pulse Oximetry [ Assessment] 11/05/20 11/05/20 11/05/20 04:00 04:32 05:00 Temperature 99.8 F H Pulse Rate 107 H 94 H Pulse Rate [ 104 H From Monitor] Respiratory 21 27 H Rate Blood Pressure 132/66 120/57 O2 Sat by Pulse 100 100 100 Oximetry O2 Sat by Pulse Oximetry [ Assessment] 11/05/20 11/05/20 11/05/20 05:23 06:00 07:01 Temperature Pulse Rate 95 H 104 H 107 H Pulse Rate [ From Monitor] Respiratory 36 H 21 Rate Blood Pressure 120/55 127/78 129/74 O2 Sat by Pulse 100 100 Oximetry O2 Sat by Pulse Oximetry [ Assessment] 11/05/20 11/05/20 11/05/20 08:00 08:20 08:36 Temperature 99.6 F Pulse Rate 99 H 108 H Pulse Rate [ From Monitor] Respiratory 24 Rate Blood Pressure 128/72 136/77 O2 Sat by Pulse 100 100 Oximetry O2 Sat by Pulse 100 Oximetry [ Assessment] 11/05/20 11/05/20 11/05/20 09:00 10:01 11:00 Temperature Pulse Rate 104 H 79 81 Pulse Rate [ From Monitor] Respiratory 15 22 20 Rate Blood Pressure 126/70 109/50 101/63 O2 Sat by Pulse 100 100 100 Oximetry O2 Sat by Pulse Oximetry [ Assessment] 11/05/20 12:00 Temperature 99.6 F Pulse Rate 101 H Pulse Rate [ From Monitor] Respiratory 11 L Rate Blood Pressure 105/54 O2 Sat by Pulse 100 Oximetry O2 Sat by Pulse Oximetry [ Assessment] Constitutional: comatose, other (critically ill on ventilator trach) Eyes: non-icteric ENT: oropharynx moist, other (orally intubated and not sedated) Neck: other (large in cirumference) Effort: normal Ascultation: Bilateral: clear, diminished breath sounds, other (coarse BS bilaterally w/ mild faint wheezes) Percussion: Bilateral: not dull Cardiovascular: regular rate and rhythm, other (no mrg) Gastrointestinal: normoactive bowel sounds, soft, other (post surgical changes with drain on the left side) Extremities: no cyanosis, pink and warm, anasarca Neurologic: other (unresponsive, not following commands, not tracking) Psychiatric: other (unable to assess) CBC and BMP: 11/04/20 05:00 11/04/20 05:00 ABG, PT/INR, D-dimer: ABG ABG pH 7.459 pH Units (7.350-7.450) H 10/26/20 10:30 POC ABG pCO2 20.7 mmHg (32.0-48.0) L 10/13/20 07:18 ABG pCO2 32.4 mm Hg 10/26/20 10:30 POC ABG pO2 137.9 mmHg (83-108) H 10/13/20 07:18 ABG pO2 112.2 mm Hg (80.0-90.0) H 10/26/20 10:30 POC ABG HCO3 14.8 10/13/20 07:18 ABG O2 Saturation 98.2 % (95.0-99.0) 10/26/20 10:30 PT/INR, D-dimer PT 13.6 Sec. (12.2-14.9) 10/21/20 13:54 INR 1.06 (0.87-1.13) 10/21/20 13:54 D-Dimer > 32850 ng/mlDDU (0-234) H 10/04/20 10:00 Abnormal lab findings: Abnormal Labs 10/02/20 10/02/20 10/02/20 12:03 12:18 12:18 WBC 14.9 H RBC Hgb 9.1 L Hct MCV MCH 22 L MCHC 28 L RDW 17.6 H Plt Count 102 L Lymph % (Auto) [place] % (Auto) Lymph # (Auto) [place] # (Auto) Baso # (Auto) Seg Neutrophils % Seg Neuts % (Manual) 36.0 L Lymphocytes % (Manual) 49.0 H Monocytes % (Manual) Nucleated RBC % 6.0 H Seg Neutrophils # Seg Neutrophils # Man Lymphocytes # (Manual) 7.3 H Monocytes # (Manual) PT INR APTT Fibrinogen D-Dimer ABG pH POC ABG pCO2 POC ABG pO2 ABG pO2 ABG HCO3 ABG Base Excess ABG Hemoglobin ABG Oxyhemoglobin ABG Sodium ABG Potassium ABG Chloride ABG Glucose VBG pH Oxyhemoglobin Carboxyhemoglobin Sodium 134 L Potassium Chloride Carbon Dioxide 12 L BUN 6 L Creatinine Glucose 390 H POC Glucose 451 H Lactic Acid Calcium Ionized Calcium Phosphorus Magnesium AST 135 H ALT 85 H Alkaline Phosphatase 172 H Lactate Dehydrogenase 641 H NT-Pro-B Natriuret Pep Total Protein 5.4 L Albumin 2.3 L Arterial Blood Glucose Arterial Blood Ionized Calcium Urine WBC (Auto) Vancomycin Trough Phenytoin Crossmatch 10/02/20 10/02/20 10/02/20 12:50 13:05 13:05 WBC 38.6 H RBC Hgb 8.9 L Hct 29.0 L MCV 73 L MCH 22 L MCHC RDW 17.2 H Plt Count Lymph % (Auto) [place] % (Auto) Lymph # (Auto) [place] # (Auto) Baso # (Auto) Seg Neutrophils % Seg Neuts % (Manual) Lymphocytes % (Manual) Monocytes % (Manual) Nucleated RBC % 2.0 H Seg Neutrophils # Seg Neutrophils # Man 20.1 H Lymphocytes # (Manual) 10.4 H Monocytes # (Manual) 2.3 H PT INR APTT Fibrinogen D-Dimer ABG pH POC ABG pCO2 POC ABG pO2 ABG pO2 ABG HCO3 ABG Base Excess ABG Hemoglobin ABG Oxyhemoglobin ABG Sodium ABG Potassium ABG Chloride ABG Glucose VBG pH Oxyhemoglobin Carboxyhemoglobin Sodium Potassium Chloride Carbon Dioxide BUN Creatinine Glucose POC Glucose Lactic Acid Calcium Ionized Calcium Phosphorus Magnesium AST 184 H ALT 113 H Alkaline Phosphatase Lactate Dehydrogenase 769 H NT-Pro-B Natriuret Pep Total Protein Albumin Arterial Blood Glucose Arterial Blood Ionized Calcium Urine WBC (Auto) Vancomycin Trough Phenytoin Crossmatch See Detail 10/02/20 10/02/20 10/02/20 16:25 16:35 16:35 WBC RBC Hgb Hct MCV MCH MCHC RDW Plt Count Lymph % (Auto) [place] % (Auto) Lymph # (Auto) [place] # (Auto) Baso # (Auto) Seg Neutrophils % Seg Neuts % (Manual) Lymphocytes % (Manual) Monocytes % (Manual) Nucleated RBC % Seg Neutrophils # Seg Neutrophils # Man Lymphocytes # (Manual) Monocytes # (Manual) PT INR APTT Fibrinogen D-Dimer ABG pH 7.031 L* POC ABG pCO2 POC ABG pO2 ABG pO2 116.8 H ABG HCO3 12.7 L ABG Base Excess -16.9 L ABG Hemoglobin 7.8 L ABG Oxyhemoglobin ABG Sodium ABG Potassium ABG Chloride ABG Glucose VBG pH Oxyhemoglobin 94.9 L Carboxyhemoglobin Sodium Potassium Chloride Carbon Dioxide BUN Creatinine Glucose 403 H POC Glucose Lactic Acid 11.40 H* Calcium 6.3 L D Ionized Calcium Phosphorus Magnesium AST 70 H ALT Alkaline Phosphatase Lactate Dehydrogenase NT-Pro-B Natriuret Pep Total Protein 1.9 L D Albumin 1.2 L Arterial Blood Glucose Arterial Blood Ionized Calcium Urine WBC (Auto) Vancomycin Trough Phenytoin Crossmatch 10/02/20 10/02/20 10/02/20 18:18 18:18 22:30 WBC 11.5 H RBC 2.06 L Hgb 5.5 L* D Hct 17.3 L* D MCV MCH 27 L MCHC RDW 19.5 H Plt Count 60 L Lymph % (Auto) [place] % (Auto) Lymph # (Auto) [place] # (Auto) Baso # (Auto) Seg Neutrophils % Seg Neuts % (Manual) Lymphocytes % (Manual) 8.0 L Monocytes % (Manual) 8.0 H Nucleated RBC % 8.0 H Seg Neutrophils # Seg Neutrophils # Man Lymphocytes # (Manual) 0.9 L Monocytes # (Manual) 0.9 H PT 37.1 H INR 3.71 H APTT 135.8 H* Fibrinogen D-Dimer ABG pH 7.067 L* POC ABG pCO2 POC ABG pO2 ABG pO2 183.0 H ABG HCO3 14.1 L ABG Base Excess -15.1 L ABG Hemoglobin 7.7 L ABG Oxyhemoglobin ABG Sodium ABG Potassium ABG Chloride ABG Glucose VBG pH Oxyhemoglobin Carboxyhemoglobin Sodium Potassium Chloride Carbon Dioxide BUN Creatinine Glucose POC Glucose Lactic Acid Calcium Ionized Calcium Phosphorus Magnesium AST ALT Alkaline Phosphatase Lactate Dehydrogenase NT-Pro-B Natriuret Pep Total Protein Albumin Arterial Blood Glucose Arterial Blood Ionized Calcium Urine WBC (Auto) Vancomycin Trough Phenytoin Crossmatch 10/02/20 10/02/20 10/03/20 Unknown Unknown 00:01 WBC RBC Hgb Hct MCV MCH MCHC RDW Plt Count Lymph % (Auto) [place] % (Auto) Lymph # (Auto) [place] # (Auto) Baso # (Auto) Seg Neutrophils % Seg Neuts % (Manual) Lymphocytes % (Manual) Monocytes % (Manual) Nucleated RBC % Seg Neutrophils # Seg Neutrophils # Man Lymphocytes # (Manual) Monocytes # (Manual) PT 61.1 H INR 6.92 H* APTT 158.7 H* Fibrinogen < 60 L* D-Dimer > 72877 H ABG pH POC ABG pCO2 POC ABG pO2 ABG pO2 ABG HCO3 ABG Base Excess ABG Hemoglobin ABG Oxyhemoglobin ABG Sodium ABG Potassium ABG Chloride ABG Glucose VBG pH 6.949 L* Oxyhemoglobin Carboxyhemoglobin Sodium Potassium Chloride Carbon Dioxide BUN Creatinine Glucose POC Glucose 196 H Lactic Acid Calcium Ionized Calcium Phosphorus Magnesium AST ALT Alkaline Phosphatase Lactate Dehydrogenase NT-Pro-B Natriuret Pep Total Protein Albumin Arterial Blood Glucose Arterial Blood Ionized Calcium Urine WBC (Auto) Vancomycin Trough Phenytoin Crossmatch 10/03/20 10/03/20 10/03/20 00:40 00:40 00:40 WBC RBC Hgb Hct MCV MCH MCHC RDW Plt Count Lymph % (Auto) [place] % (Auto) Lymph # (Auto) [place] # (Auto) Baso # (Auto) Seg Neutrophils % Seg Neuts % (Manual) Lymphocytes % (Manual) Monocytes % (Manual) Nucleated RBC % Seg Neutrophils # Seg Neutrophils # Man Lymphocytes # (Manual) Monocytes # (Manual) PT 15.1 H INR 1.21 H APTT Fibrinogen D-Dimer ABG pH POC ABG pCO2 POC ABG pO2 ABG pO2 ABG HCO3 ABG Base Excess ABG Hemoglobin ABG Oxyhemoglobin ABG Sodium ABG Potassium ABG Chloride ABG Glucose VBG pH Oxyhemoglobin Carboxyhemoglobin Sodium 136 L Potassium Chloride Carbon Dioxide BUN Creatinine 1.6 H D Glucose 106 H POC Glucose Lactic Acid 5.60 H* Calcium 6.5 L Ionized Calcium Phosphorus Magnesium AST 232 H ALT 104 H Alkaline Phosphatase Lactate Dehydrogenase NT-Pro-B Natriuret Pep Total Protein 3.9 L D Albumin 2.4 L Arterial Blood Glucose Arterial Blood Ionized Calcium Urine WBC (Auto) Vancomycin Trough Phenytoin Crossmatch 10/03/20 10/03/20 10/03/20 02:08 02:08 02:08 WBC 17.6 H RBC 3.27 L Hgb 9.9 L D Hct 29.9 L D MCV MCH MCHC RDW 16.5 H Plt Count 75 L Lymph % (Auto) [place] % (Auto) Lymph # (Auto) [place] # (Auto) Baso # (Auto) Seg Neutrophils % Seg Neuts % (Manual) 76.0 H Lymphocytes % (Manual) Monocytes % (Manual) Nucleated RBC % 8.0 H Seg Neutrophils # Seg Neutrophils # Man 13.4 H Lymphocytes # (Manual) Monocytes # (Manual) PT INR APTT Fibrinogen D-Dimer ABG pH POC ABG pCO2 POC ABG pO2 ABG pO2 ABG HCO3 ABG Base Excess ABG Hemoglobin ABG Oxyhemoglobin ABG Sodium ABG Potassium ABG Chloride ABG Glucose VBG pH Oxyhemoglobin Carboxyhemoglobin Sodium Potassium Chloride Carbon Dioxide 19 L BUN Creatinine 1.4 H Glucose 306 H POC Glucose Lactic Acid 10.50 H* Calcium 6.4 L Ionized Calcium Phosphorus Magnesium AST ALT Alkaline Phosphatase Lactate Dehydrogenase NT-Pro-B Natriuret Pep Total Protein Albumin Arterial Blood Glucose Arterial Blood Ionized Calcium Urine WBC (Auto) Vancomycin Trough Phenytoin Crossmatch 10/03/20 10/03/20 10/03/20 02:42 03:59 05:31 WBC RBC Hgb Hct MCV MCH MCHC RDW Plt Count Lymph % (Auto) [place] % (Auto) Lymph # (Auto) [place] # (Auto) Baso # (Auto) Seg Neutrophils % Seg Neuts % (Manual) Lymphocytes % (Manual) Monocytes % (Manual) Nucleated RBC % Seg Neutrophils # Seg Neutrophils # Man Lymphocytes # (Manual) Monocytes # (Manual) PT INR APTT Fibrinogen D-Dimer ABG pH 7.144 L POC ABG pCO2 54.4 H POC ABG pO2 ABG pO2 ABG HCO3 ABG Base Excess ABG Hemoglobin 10.0 L ABG Oxyhemoglobin ABG Sodium ABG Potassium ABG Chloride 108.0 H ABG Glucose 306 H VBG pH Oxyhemoglobin Carboxyhemoglobin Sodium Potassium Chloride Carbon Dioxide BUN Creatinine Glucose POC Glucose 209 H Lactic Acid 9.20 H* Calcium Ionized Calcium Phosphorus Magnesium AST ALT Alkaline Phosphatase Lactate Dehydrogenase NT-Pro-B Natriuret Pep Total Protein Albumin Arterial Blood Glucose 306 H Arterial Blood Ionized Calcium 3.7 L Urine WBC (Auto) Vancomycin Trough Phenytoin Crossmatch 10/03/20 10/03/20 10/03/20 09:00 09:00 09:00 WBC 27.4 H RBC 2.84 L Hgb 8.5 L Hct 25.1 L MCV MCH MCHC RDW 16.1 H Plt Count 72 L Lymph % (Auto) [place] % (Auto) Lymph # (Auto) [place] # (Auto) Baso # (Auto) Seg Neutrophils % Seg Neuts % (Manual) Lymphocytes % (Manual) 11.0 L Monocytes % (Manual) Nucleated RBC % 3.0 H Seg Neutrophils # Seg Neutrophils # Man 18.4 H Lymphocytes # (Manual) Monocytes # (Manual) 1.9 H PT INR APTT Fibrinogen D-Dimer ABG pH POC ABG pCO2 POC ABG pO2 ABG pO2 ABG HCO3 ABG Base Excess ABG Hemoglobin ABG Oxyhemoglobin ABG Sodium ABG Potassium ABG Chloride ABG Glucose VBG pH Oxyhemoglobin Carboxyhemoglobin Sodium Potassium Chloride Carbon Dioxide BUN Creatinine 1.7 H Glucose 216 H POC Glucose Lactic Acid 9.20 H* Calcium 6.3 L Ionized Calcium Phosphorus Magnesium AST 331 H ALT 171 H Alkaline Phosphatase Lactate Dehydrogenase NT-Pro-B Natriuret Pep Total Protein 3.7 L Albumin 1.9 L Arterial Blood Glucose Arterial Blood Ionized Calcium Urine WBC (Auto) Vancomycin Trough Phenytoin Crossmatch 10/03/20 10/03/20 10/03/20 11:20 11:46 11:50 WBC 28.7 H RBC 2.67 L Hgb 8.0 L Hct 23.7 L MCV MCH MCHC RDW 16.6 H Plt Count 76 L Lymph % (Auto) [place] % (Auto) Lymph # (Auto) [place] # (Auto) Baso # (Auto) Seg Neutrophils % Seg Neuts % (Manual) Lymphocytes % (Manual) Monocytes % (Manual) Nucleated RBC % Seg Neutrophils # Seg Neutrophils # Man Lymphocytes # (Manual) Monocytes # (Manual) PT INR APTT Fibrinogen D-Dimer ABG pH POC ABG pCO2 POC ABG pO2 ABG pO2 ABG HCO3 ABG Base Excess ABG Hemoglobin ABG Oxyhemoglobin ABG Sodium ABG Potassium ABG Chloride ABG Glucose VBG pH Oxyhemoglobin Carboxyhemoglobin Sodium Potassium Chloride Carbon Dioxide BUN Creatinine Glucose POC Glucose 125 H Lactic Acid 8.00 H* Calcium Ionized Calcium Phosphorus Magnesium AST ALT Alkaline Phosphatase Lactate Dehydrogenase NT-Pro-B Natriuret Pep Total Protein Albumin Arterial Blood Glucose Arterial Blood Ionized Calcium Urine WBC (Auto) Vancomycin Trough Phenytoin Crossmatch 10/03/20 10/04/20 10/04/20 11:50 00:40 00:40 WBC RBC Hgb 6.8 L Hct 19.4 L* MCV MCH MCHC RDW Plt Count 49 L Lymph % (Auto) [place] % (Auto) Lymph # (Auto) [place] # (Auto) Baso # (Auto) Seg Neutrophils % Seg Neuts % (Manual) Lymphocytes % (Manual) Monocytes % (Manual) Nucleated RBC % Seg Neutrophils # Seg Neutrophils # Man Lymphocytes # (Manual) Monocytes # (Manual) PT INR APTT Fibrinogen D-Dimer ABG pH 7.244 L POC ABG pCO2 POC ABG pO2 ABG pO2 ABG HCO3 ABG Base Excess -4.5 L ABG Hemoglobin 7.3 L ABG Oxyhemoglobin ABG Sodium ABG Potassium ABG Chloride ABG Glucose VBG pH Oxyhemoglobin Carboxyhemoglobin Sodium Potassium Chloride Carbon Dioxide BUN Creatinine Glucose POC Glucose Lactic Acid Calcium Ionized Calcium Phosphorus Magnesium AST ALT Alkaline Phosphatase Lactate Dehydrogenase NT-Pro-B Natriuret Pep Total Protein Albumin Arterial Blood Glucose Arterial Blood Ionized Calcium Urine WBC (Auto) Vancomycin Trough Phenytoin Crossmatch 10/04/20 10/04/20 10/04/20 03:53 10:00 10:00 WBC 14.6 H RBC 2.57 L Hgb 7.6 L Hct 22.5 L MCV MCH MCHC RDW 15.8 H Plt Count 38 L Lymph % (Auto) 7.7 L [place] % (Auto) Lymph # (Auto) 1.1 L [place] # (Auto) 0.9 H Baso # (Auto) Seg Neutrophils % 85.6 H Seg Neuts % (Manual) Lymphocytes % (Manual) Monocytes % (Manual) Nucleated RBC % Seg Neutrophils # 12.5 H Seg Neutrophils # Man Lymphocytes # (Manual) Monocytes # (Manual) PT INR APTT Fibrinogen D-Dimer ABG pH POC ABG pCO2 POC ABG pO2 110.6 H ABG pO2 ABG HCO3 ABG Base Excess ABG Hemoglobin 6.7 L ABG Oxyhemoglobin ABG Sodium 132.0 L ABG Potassium ABG Chloride ABG Glucose 111 H VBG pH Oxyhemoglobin Carboxyhemoglobin Sodium 134 L D Potassium Chloride 97.6 L Carbon Dioxide BUN Creatinine 1.7 H Glucose POC Glucose Lactic Acid Calcium 6.3 L Ionized Calcium Phosphorus Magnesium AST 203 H ALT 81 H Alkaline Phosphatase Lactate Dehydrogenase NT-Pro-B Natriuret Pep Total Protein 3.9 L Albumin 2.3 L Arterial Blood Glucose 111 H Arterial Blood Ionized Calcium 3.5 L Urine WBC (Auto) Vancomycin Trough Phenytoin Crossmatch 10/04/20 10/04/20 10/04/20 10:00 10:00 10:14 WBC RBC Hgb Hct MCV MCH MCHC RDW Plt Count Lymph % (Auto) [place] % (Auto) Lymph # (Auto) [place] # (Auto) Baso # (Auto) Seg Neutrophils % Seg Neuts % (Manual) Lymphocytes % (Manual) Monocytes % (Manual) Nucleated RBC % Seg Neutrophils # Seg Neutrophils # Man Lymphocytes # (Manual) Monocytes # (Manual) PT INR APTT Fibrinogen D-Dimer > 32594 H ABG pH POC ABG pCO2 POC ABG pO2 ABG pO2 ABG HCO3 ABG Base Excess ABG Hemoglobin ABG Oxyhemoglobin ABG Sodium ABG Potassium ABG Chloride ABG Glucose VBG pH Oxyhemoglobin Carboxyhemoglobin Sodium Potassium Chloride Carbon Dioxide BUN Creatinine Glucose POC Glucose Lactic Acid 3.90 H* Calcium Ionized Calcium Phosphorus Magnesium AST ALT Alkaline Phosphatase Lactate Dehydrogenase NT-Pro-B Natriuret Pep 2788 H Total Protein Albumin Arterial Blood Glucose Arterial Blood Ionized Calcium Urine WBC (Auto) Vancomycin Trough Phenytoin Crossmatch 10/04/20 10/04/20 10/04/20 14:00 14:00 18:00 WBC 15.7 H RBC 3.17 L Hgb 9.3 L 9.6 L Hct 27.2 L 28.0 L MCV MCH MCHC RDW 16.9 H Plt Count 41 L Lymph % (Auto) 8.6 L [place] % (Auto) Lymph # (Auto) [place] # (Auto) 0.9 H Baso # (Auto) Seg Neutrophils % 85.4 H Seg Neuts % (Manual) Lymphocytes % (Manual) Monocytes % (Manual) Nucleated RBC % Seg Neutrophils # 13.4 H Seg Neutrophils # Man Lymphocytes # (Manual) Monocytes # (Manual) PT INR APTT Fibrinogen D-Dimer ABG pH POC ABG pCO2 POC ABG pO2 ABG pO2 ABG HCO3 ABG Base Excess ABG Hemoglobin ABG Oxyhemoglobin ABG Sodium ABG Potassium ABG Chloride ABG Glucose VBG pH Oxyhemoglobin Carboxyhemoglobin Sodium 133 L Potassium Chloride 96.4 L Carbon Dioxide BUN 18 H Creatinine 1.7 H Glucose POC Glucose Lactic Acid Calcium 6.3 L Ionized Calcium Phosphorus Magnesium AST ALT Alkaline Phosphatase Lactate Dehydrogenase NT-Pro-B Natriuret Pep Total Protein Albumin Arterial Blood Glucose Arterial Blood Ionized Calcium Urine WBC (Auto) Vancomycin Trough Phenytoin Crossmatch 10/04/20 10/04/20 10/05/20 18:00 22:00 05:00 WBC 17.6 H RBC 3.34 L Hgb 9.9 L Hct 29.4 L MCV MCH MCHC RDW 17.1 H Plt Count 56 L Lymph % (Auto) 8.5 L [place] % (Auto) Lymph # (Auto) [place] # (Auto) 1.0 H Baso # (Auto) Seg Neutrophils % 85.1 H Seg Neuts % (Manual) Lymphocytes % (Manual) Monocytes % (Manual) Nucleated RBC % Seg Neutrophils # 15.0 H Seg Neutrophils # Man Lymphocytes # (Manual) Monocytes # (Manual) PT INR APTT Fibrinogen D-Dimer ABG pH POC ABG pCO2 POC ABG pO2 ABG pO2 ABG HCO3 ABG Base Excess ABG Hemoglobin ABG Oxyhemoglobin ABG Sodium ABG Potassium ABG Chloride ABG Glucose VBG pH Oxyhemoglobin Carboxyhemoglobin Sodium 136 L Potassium Chloride Carbon Dioxide BUN 18 H Creatinine 1.7 H Glucose POC Glucose Lactic Acid 2.30 H* Calcium 6.6 L Ionized Calcium Phosphorus Magnesium AST ALT Alkaline Phosphatase Lactate Dehydrogenase NT-Pro-B Natriuret Pep Total Protein Albumin Arterial Blood Glucose Arterial Blood Ionized Calcium Urine WBC (Auto) Vancomycin Trough Phenytoin Crossmatch 10/05/20 10/05/20 10/05/20 05:00 05:00 05:03 WBC RBC Hgb Hct MCV MCH MCHC RDW Plt Count Lymph % (Auto) [place] % (Auto) Lymph # (Auto) [place] # (Auto) Baso # (Auto) Seg Neutrophils % Seg Neuts % (Manual) Lymphocytes % (Manual) Monocytes % (Manual) Nucleated RBC % Seg Neutrophils # Seg Neutrophils # Man Lymphocytes # (Manual) Monocytes # (Manual) PT INR APTT Fibrinogen D-Dimer ABG pH 7.458 H POC ABG pCO2 POC ABG pO2 ABG pO2 74.3 L ABG HCO3 27.5 H ABG Base Excess 3.4 H ABG Hemoglobin 10.0 L ABG Oxyhemoglobin ABG Sodium ABG Potassium ABG Chloride ABG Glucose VBG pH Oxyhemoglobin 94.9 L Carboxyhemoglobin Sodium Potassium Chloride Carbon Dioxide BUN 19 H Creatinine 1.8 H Glucose POC Glucose Lactic Acid Calcium 6.8 L Ionized Calcium 3.9 L Phosphorus Magnesium AST 225 H ALT 85 H Alkaline Phosphatase Lactate Dehydrogenase NT-Pro-B Natriuret Pep Total Protein 4.5 L Albumin 2.7 L Arterial Blood Glucose Arterial Blood Ionized Calcium Urine WBC (Auto) Vancomycin Trough Phenytoin Crossmatch 10/05/20 10/05/20 10/05/20 10:10 15:00 19:40 WBC RBC Hgb Hct MCV MCH MCHC RDW Plt Count Lymph % (Auto) [place] % (Auto) Lymph # (Auto) [place] # (Auto) Baso # (Auto) Seg Neutrophils % Seg Neuts % (Manual) Lymphocytes % (Manual) Monocytes % (Manual) Nucleated RBC % Seg Neutrophils # Seg Neutrophils # Man Lymphocytes # (Manual) Monocytes # (Manual) PT INR APTT Fibrinogen D-Dimer ABG pH POC ABG pCO2 POC ABG pO2 ABG pO2 ABG HCO3 ABG Base Excess ABG Hemoglobin ABG Oxyhemoglobin ABG Sodium ABG Potassium ABG Chloride ABG Glucose VBG pH Oxyhemoglobin Carboxyhemoglobin Sodium Potassium 3.5 L Chloride Carbon Dioxide 31 H 32 H BUN 19 H 19 H Creatinine 1.8 H 1.8 H Glucose POC Glucose Lactic Acid Calcium 7.0 L 7.2 L Ionized Calcium Phosphorus Magnesium 2.90 H AST ALT Alkaline Phosphatase Lactate Dehydrogenase NT-Pro-B Natriuret Pep Total Protein Albumin Arterial Blood Glucose Arterial Blood Ionized Calcium Urine WBC (Auto) Vancomycin Trough Phenytoin Crossmatch 10/06/20 10/06/20 10/06/20 01:05 03:12 04:00 WBC 17.1 H RBC 3.47 L Hgb Hct MCV MCH MCHC RDW 17.4 H Plt Count 82 L Lymph % (Auto) 8.3 L [place] % (Auto) Lymph # (Auto) [place] # (Auto) 1.1 H Baso # (Auto) Seg Neutrophils % 83.8 H Seg Neuts % (Manual) Lymphocytes % (Manual) Monocytes % (Manual) Nucleated RBC % Seg Neutrophils # 14.3 H Seg Neutrophils # Man Lymphocytes # (Manual) Monocytes # (Manual) PT INR APTT Fibrinogen D-Dimer ABG pH 7.474 H POC ABG pCO2 POC ABG pO2 129.5 H ABG pO2 ABG HCO3 ABG Base Excess ABG Hemoglobin 11.4 L ABG Oxyhemoglobin ABG Sodium 131.8 L ABG Potassium ABG Chloride ABG Glucose 103 H VBG pH Oxyhemoglobin Carboxyhemoglobin 0.3 L Sodium Potassium Chloride Carbon Dioxide BUN Creatinine Glucose POC Glucose Lactic Acid Calcium Ionized Calcium Phosphorus Magnesium 3.70 H AST ALT Alkaline Phosphatase Lactate Dehydrogenase NT-Pro-B Natriuret Pep Total Protein Albumin Arterial Blood Glucose 103 H Arterial Blood Ionized Calcium 4.2 L Urine WBC (Auto) Vancomycin Trough Phenytoin Crossmatch 10/06/20 10/06/20 10/06/20 04:00 05:31 08:12 WBC RBC Hgb Hct MCV MCH MCHC RDW Plt Count Lymph % (Auto) [place] % (Auto) Lymph # (Auto) [place] # (Auto) Baso # (Auto) Seg Neutrophils % Seg Neuts % (Manual) Lymphocytes % (Manual) Monocytes % (Manual) Nucleated RBC % Seg Neutrophils # Seg Neutrophils # Man Lymphocytes # (Manual) Monocytes # (Manual) PT INR APTT Fibrinogen D-Dimer ABG pH POC ABG pCO2 POC ABG pO2 ABG pO2 ABG HCO3 ABG Base Excess ABG Hemoglobin ABG Oxyhemoglobin ABG Sodium ABG Potassium ABG Chloride ABG Glucose VBG pH Oxyhemoglobin Carboxyhemoglobin Sodium Potassium 3.5 L Chloride Carbon Dioxide BUN 19 H Creatinine 1.8 H Glucose 102 H POC Glucose 116 H Lactic Acid Calcium 7.2 L Ionized Calcium Phosphorus Magnesium 5.40 H AST 307 H ALT 137 H Alkaline Phosphatase Lactate Dehydrogenase NT-Pro-B Natriuret Pep Total Protein 4.5 L Albumin 2.6 L Arterial Blood Glucose Arterial Blood Ionized Calcium Urine WBC (Auto) Vancomycin Trough Phenytoin Crossmatch 10/06/20 10/06/20 10/06/20 11:00 11:50 20:13 WBC RBC Hgb Hct MCV MCH MCHC RDW Plt Count Lymph % (Auto) [place] % (Auto) Lymph # (Auto) [place] # (Auto) Baso # (Auto) Seg Neutrophils % Seg Neuts % (Manual) Lymphocytes % (Manual) Monocytes % (Manual) Nucleated RBC % Seg Neutrophils # Seg Neutrophils # Man Lymphocytes # (Manual) Monocytes # (Manual) PT INR APTT Fibrinogen D-Dimer ABG pH POC ABG pCO2 POC ABG pO2 ABG pO2 ABG HCO3 ABG Base Excess ABG Hemoglobin ABG Oxyhemoglobin ABG Sodium ABG Potassium ABG Chloride ABG Glucose VBG pH Oxyhemoglobin Carboxyhemoglobin Sodium Potassium Chloride Carbon Dioxide BUN Creatinine Glucose POC Glucose 106 H Lactic Acid Calcium Ionized Calcium Phosphorus Magnesium 6.50 H 6.20 H AST ALT Alkaline Phosphatase Lactate Dehydrogenase NT-Pro-B Natriuret Pep Total Protein Albumin Arterial Blood Glucose Arterial Blood Ionized Calcium Urine WBC (Auto) Vancomycin Trough Phenytoin Crossmatch 10/06/20 10/06/20 10/06/20 20:17 22:29 23:57 WBC RBC Hgb Hct MCV MCH MCHC RDW Plt Count Lymph % (Auto) [place] % (Auto) Lymph # (Auto) [place] # (Auto) Baso # (Auto) Seg Neutrophils % Seg Neuts % (Manual) Lymphocytes % (Manual) Monocytes % (Manual) Nucleated RBC % Seg Neutrophils # Seg Neutrophils # Man Lymphocytes # (Manual) Monocytes # (Manual) PT INR APTT Fibrinogen D-Dimer ABG pH POC ABG pCO2 POC ABG pO2 ABG pO2 ABG HCO3 ABG Base Excess ABG Hemoglobin ABG Oxyhemoglobin ABG Sodium ABG Potassium ABG Chloride ABG Glucose VBG pH Oxyhemoglobin Carboxyhemoglobin Sodium Potassium Chloride Carbon Dioxide BUN Creatinine Glucose POC Glucose 112 H 126 H 133 H Lactic Acid Calcium Ionized Calcium Phosphorus Magnesium AST ALT Alkaline Phosphatase Lactate Dehydrogenase NT-Pro-B Natriuret Pep Total Protein Albumin Arterial Blood Glucose Arterial Blood Ionized Calcium Urine WBC (Auto) Vancomycin Trough Phenytoin Crossmatch 10/07/20 10/07/20 10/07/20 00:35 02:22 03:16 WBC RBC Hgb Hct MCV MCH MCHC RDW Plt Count Lymph % (Auto) [place] % (Auto) Lymph # (Auto) [place] # (Auto) Baso # (Auto) Seg Neutrophils % Seg Neuts % (Manual) Lymphocytes % (Manual) Monocytes % (Manual) Nucleated RBC % Seg Neutrophils # Seg Neutrophils # Man Lymphocytes # (Manual) Monocytes # (Manual) PT INR APTT Fibrinogen D-Dimer ABG pH POC ABG pCO2 POC ABG pO2 ABG pO2 ABG HCO3 ABG Base Excess ABG Hemoglobin 11.6 L ABG Oxyhemoglobin ABG Sodium ABG Potassium ABG Chloride ABG Glucose 156 H VBG pH Oxyhemoglobin Carboxyhemoglobin 0.3 L Sodium Potassium Chloride Carbon Dioxide BUN Creatinine Glucose POC Glucose 124 H Lactic Acid Calcium Ionized Calcium Phosphorus Magnesium 5.90 H AST ALT Alkaline Phosphatase Lactate Dehydrogenase NT-Pro-B Natriuret Pep Total Protein Albumin Arterial Blood Glucose 156 H Arterial Blood Ionized Calcium 4.2 L Urine WBC (Auto) Vancomycin Trough Phenytoin Crossmatch 10/07/20 10/07/20 10/07/20 04:06 05:45 07:05 WBC 19.2 H RBC 3.57 L Hgb Hct MCV MCH MCHC 35 H RDW 17.1 H Plt Count 129 L Lymph % (Auto) [place] % (Auto) Lymph # (Auto) [place] # (Auto) Baso # (Auto) Seg Neutrophils % Seg Neuts % (Manual) 94.0 H Lymphocytes % (Manual) 6.0 L Monocytes % (Manual) Nucleated RBC % Seg Neutrophils # Seg Neutrophils # Man 18.0 H Lymphocytes # (Manual) Monocytes # (Manual) PT INR APTT Fibrinogen D-Dimer ABG pH POC ABG pCO2 POC ABG pO2 ABG pO2 ABG HCO3 ABG Base Excess ABG Hemoglobin ABG Oxyhemoglobin ABG Sodium ABG Potassium ABG Chloride ABG Glucose VBG pH Oxyhemoglobin Carboxyhemoglobin Sodium Potassium Chloride Carbon Dioxide BUN Creatinine Glucose POC Glucose 135 H 149 H Lactic Acid Calcium Ionized Calcium Phosphorus Magnesium AST ALT Alkaline Phosphatase Lactate Dehydrogenase NT-Pro-B Natriuret Pep Total Protein Albumin Arterial Blood Glucose Arterial Blood Ionized Calcium Urine WBC (Auto) Vancomycin Trough Phenytoin Crossmatch 12/10/07/20 10/07/20 07:05 07:05 12:21 WBC RBC Hgb Hct MCV MCH MCHC RDW Plt Count Lymph % (Auto) [place] % (Auto) Lymph # (Auto) [place] # (Auto) Baso # (Auto) Seg Neutrophils % Seg Neuts % (Manual) Lymphocytes % (Manual) Monocytes % (Manual) Nucleated RBC % Seg Neutrophils # Seg Neutrophils # Man Lymphocytes # (Manual) Monocytes # (Manual) PT INR APTT Fibrinogen D-Dimer ABG pH POC ABG pCO2 POC ABG pO2 ABG pO2 ABG HCO3 ABG Base Excess ABG Hemoglobin ABG Oxyhemoglobin ABG Sodium ABG Potassium ABG Chloride ABG Glucose VBG pH Oxyhemoglobin Carboxyhemoglobin Sodium Potassium Chloride Carbon Dioxide BUN 21 H Creatinine 1.7 H Glucose 171 H POC Glucose 124 H Lactic Acid Calcium 7.4 L Ionized Calcium Phosphorus Magnesium 6.10 H AST 245 H ALT 147 H Alkaline Phosphatase Lactate Dehydrogenase NT-Pro-B Natriuret Pep Total Protein 5.3 L Albumin 2.8 L Arterial Blood Glucose Arterial Blood Ionized Calcium Urine WBC (Auto) Vancomycin Trough Phenytoin Crossmatch 10/07/20 10/07/20 10/07/20 19:52 21:00 21:50 WBC RBC Hgb Hct MCV MCH MCHC RDW Plt Count Lymph % (Auto) [place] % (Auto) Lymph # (Auto) [place] # (Auto) Baso # (Auto) Seg Neutrophils % Seg Neuts % (Manual) Lymphocytes % (Manual) Monocytes % (Manual) Nucleated RBC % Seg Neutrophils # Seg Neutrophils # Man Lymphocytes # (Manual) Monocytes # (Manual) PT INR APTT Fibrinogen D-Dimer ABG pH POC ABG pCO2 POC ABG pO2 ABG pO2 ABG HCO3 ABG Base Excess ABG Hemoglobin ABG Oxyhemoglobin ABG Sodium ABG Potassium ABG Chloride ABG Glucose VBG pH Oxyhemoglobin Carboxyhemoglobin Sodium Potassium Chloride Carbon Dioxide BUN Creatinine Glucose POC Glucose 193 H 138 H Lactic Acid Calcium Ionized Calcium 4.4 L Phosphorus Magnesium AST ALT Alkaline Phosphatase Lactate Dehydrogenase NT-Pro-B Natriuret Pep Total Protein Albumin Arterial Blood Glucose Arterial Blood Ionized Calcium Urine WBC (Auto) Vancomycin Trough Phenytoin Crossmatch 10/07/20 10/08/20 10/08/20 23:41 04:20 05:30 WBC RBC Hgb Hct MCV MCH MCHC RDW Plt Count Lymph % (Auto) [place] % (Auto) Lymph # (Auto) [place] # (Auto) Baso # (Auto) Seg Neutrophils % Seg Neuts % (Manual) Lymphocytes % (Manual) Monocytes % (Manual) Nucleated RBC % Seg Neutrophils # Seg Neutrophils # Man Lymphocytes # (Manual) Monocytes # (Manual) PT INR APTT Fibrinogen D-Dimer ABG pH 7.467 H POC ABG pCO2 POC ABG pO2 189.8 H ABG pO2 ABG HCO3 ABG Base Excess ABG Hemoglobin 10.8 L ABG Oxyhemoglobin ABG Sodium ABG Potassium ABG Chloride ABG Glucose 133 H VBG pH Oxyhemoglobin Carboxyhemoglobin Sodium Potassium Chloride Carbon Dioxide BUN Creatinine Glucose POC Glucose 118 H 114 H Lactic Acid Calcium Ionized Calcium Phosphorus Magnesium AST ALT Alkaline Phosphatase Lactate Dehydrogenase NT-Pro-B Natriuret Pep Total Protein Albumin Arterial Blood Glucose 133 H Arterial Blood Ionized Calcium 4.2 L Urine WBC (Auto) Vancomycin Trough Phenytoin Crossmatch 10/08/20 10/08/20 10/08/20 05:43 06:42 06:42 WBC 23.6 H RBC 3.54 L Hgb Hct MCV MCH MCHC RDW 17.8 H Plt Count Lymph % (Auto) [place] % (Auto) Lymph # (Auto) [place] # (Auto) Baso # (Auto) Seg Neutrophils % Seg Neuts % (Manual) 93.0 H Lymphocytes % (Manual) 3.0 L Monocytes % (Manual) Nucleated RBC % 1.0 H Seg Neutrophils # Seg Neutrophils # Man 21.9 H Lymphocytes # (Manual) 0.7 L Monocytes # (Manual) 0.9 H PT INR APTT Fibrinogen D-Dimer ABG pH POC ABG pCO2 POC ABG pO2 ABG pO2 ABG HCO3 ABG Base Excess ABG Hemoglobin ABG Oxyhemoglobin ABG Sodium ABG Potassium ABG Chloride ABG Glucose VBG pH Oxyhemoglobin Carboxyhemoglobin Sodium Potassium Chloride Carbon Dioxide BUN 28 H Creatinine 1.6 H Glucose 141 H POC Glucose 126 H Lactic Acid Calcium 7.6 L Ionized Calcium Phosphorus Magnesium AST 162 H ALT 103 H Alkaline Phosphatase Lactate Dehydrogenase NT-Pro-B Natriuret Pep Total Protein 5.4 L Albumin 2.7 L Arterial Blood Glucose Arterial Blood Ionized Calcium Urine WBC (Auto) Vancomycin Trough Phenytoin Crossmatch 10/08/20 10/08/20 10/08/20 11:20 16:05 20:14 WBC RBC Hgb Hct MCV MCH MCHC RDW Plt Count Lymph % (Auto) [place] % (Auto) Lymph # (Auto) [place] # (Auto) Baso # (Auto) Seg Neutrophils % Seg Neuts % (Manual) Lymphocytes % (Manual) Monocytes % (Manual) Nucleated RBC % Seg Neutrophils # Seg Neutrophils # Man Lymphocytes # (Manual) Monocytes # (Manual) PT INR APTT Fibrinogen D-Dimer ABG pH POC ABG pCO2 POC ABG pO2 ABG pO2 ABG HCO3 ABG Base Excess ABG Hemoglobin ABG Oxyhemoglobin ABG Sodium ABG Potassium ABG Chloride ABG Glucose VBG pH Oxyhemoglobin Carboxyhemoglobin Sodium Potassium Chloride Carbon Dioxide BUN Creatinine Glucose POC Glucose 127 H 172 H 147 H Lactic Acid Calcium Ionized Calcium Phosphorus Magnesium AST ALT Alkaline Phosphatase Lactate Dehydrogenase NT-Pro-B Natriuret Pep Total Protein Albumin Arterial Blood Glucose Arterial Blood Ionized Calcium Urine WBC (Auto) Vancomycin Trough Phenytoin Crossmatch 10/08/20 10/08/20 10/09/20 21:27 23:24 02:10 WBC RBC Hgb Hct MCV MCH MCHC RDW Plt Count Lymph % (Auto) [place] % (Auto) Lymph # (Auto) [place] # (Auto) Baso # (Auto) Seg Neutrophils % Seg Neuts % (Manual) Lymphocytes % (Manual) Monocytes % (Manual) Nucleated RBC % Seg Neutrophils # Seg Neutrophils # Man Lymphocytes # (Manual) Monocytes # (Manual) PT INR APTT Fibrinogen D-Dimer ABG pH POC ABG pCO2 POC ABG pO2 ABG pO2 ABG HCO3 ABG Base Excess ABG Hemoglobin ABG Oxyhemoglobin ABG Sodium ABG Potassium ABG Chloride ABG Glucose VBG pH Oxyhemoglobin Carboxyhemoglobin Sodium Potassium Chloride Carbon Dioxide BUN Creatinine Glucose POC Glucose 140 H 135 H 111 H Lactic Acid Calcium Ionized Calcium Phosphorus Magnesium AST ALT Alkaline Phosphatase Lactate Dehydrogenase NT-Pro-B Natriuret Pep Total Protein Albumin Arterial Blood Glucose Arterial Blood Ionized Calcium Urine WBC (Auto) Vancomycin Trough Phenytoin Crossmatch 10/09/20 10/09/20 10/09/20 03:44 04:39 05:46 WBC 19.7 H RBC 3.51 L Hgb Hct MCV MCH MCHC RDW 17.7 H Plt Count Lymph % (Auto) [place] % (Auto) Lymph # (Auto) [place] # (Auto) Baso # (Auto) Seg Neutrophils % Seg Neuts % (Manual) 86.0 H Lymphocytes % (Manual) 4.0 L Monocytes % (Manual) 9.0 H Nucleated RBC % Seg Neutrophils # Seg Neutrophils # Man 16.9 H Lymphocytes # (Manual) 0.8 L Monocytes # (Manual) 1.8 H PT INR APTT Fibrinogen D-Dimer ABG pH 7.513 H POC ABG pCO2 POC ABG pO2 33.6 L ABG pO2 ABG HCO3 ABG Base Excess ABG Hemoglobin 11.1 L ABG Oxyhemoglobin 70.2 L ABG Sodium ABG Potassium 3.2 L ABG Chloride 108.0 H ABG Glucose 108 H VBG pH Oxyhemoglobin Carboxyhemoglobin Sodium Potassium Chloride Carbon Dioxide BUN Creatinine Glucose POC Glucose 109 H Lactic Acid Calcium Ionized Calcium Phosphorus Magnesium AST ALT Alkaline Phosphatase Lactate Dehydrogenase NT-Pro-B Natriuret Pep Total Protein Albumin Arterial Blood Glucose 108 H Arterial Blood Ionized Calcium 4.3 L Urine WBC (Auto) Vancomycin Trough Phenytoin Crossmatch 10/09/20 10/10/20 10/10/20 05:46 04:00 04:00 WBC 18.4 H RBC Hgb Hct MCV MCH MCHC RDW 17.5 H Plt Count Lymph % (Auto) 9.8 L [place] % (Auto) 8.8 H Lymph # (Auto) [place] # (Auto) 1.6 H Baso # (Auto) Seg Neutrophils % 80.0 H Seg Neuts % (Manual) Lymphocytes % (Manual) Monocytes % (Manual) Nucleated RBC % Seg Neutrophils # 14.7 H Seg Neutrophils # Man Lymphocytes # (Manual) Monocytes # (Manual) PT INR APTT Fibrinogen D-Dimer ABG pH POC ABG pCO2 POC ABG pO2 ABG pO2 ABG HCO3 ABG Base Excess ABG Hemoglobin ABG Oxyhemoglobin ABG Sodium ABG Potassium ABG Chloride ABG Glucose VBG pH Oxyhemoglobin Carboxyhemoglobin Sodium 146 H Potassium 3.2 L 2.9 L* Chloride 108.9 H 112.6 H Carbon Dioxide BUN 34 H 28 H Creatinine 1.4 H 1.3 H Glucose 109 H 101 H POC Glucose Lactic Acid Calcium 7.6 L 7.8 L Ionized Calcium Phosphorus Magnesium AST 137 H 122 H ALT 99 H 81 H Alkaline Phosphatase Lactate Dehydrogenase NT-Pro-B Natriuret Pep Total Protein 5.1 L 5.2 L Albumin 2.6 L 2.7 L Arterial Blood Glucose Arterial Blood Ionized Calcium Urine WBC (Auto) Vancomycin Trough Phenytoin Crossmatch 10/10/20 10/10/20 10/11/20 04:42 09:50 00:44 WBC RBC Hgb Hct MCV MCH MCHC RDW Plt Count Lymph % (Auto) [place] % (Auto) Lymph # (Auto) [place] # (Auto) Baso # (Auto) Seg Neutrophils % Seg Neuts % (Manual) Lymphocytes % (Manual) Monocytes % (Manual) Nucleated RBC % Seg Neutrophils # Seg Neutrophils # Man Lymphocytes # (Manual) Monocytes # (Manual) PT INR APTT Fibrinogen D-Dimer ABG pH 7.534 H POC ABG pCO2 POC ABG pO2 ABG pO2 95.2 H ABG HCO3 ABG Base Excess ABG Hemoglobin 11.3 L ABG Oxyhemoglobin ABG Sodium ABG Potassium ABG Chloride ABG Glucose VBG pH Oxyhemoglobin Carboxyhemoglobin Sodium Potassium Chloride Carbon Dioxide BUN Creatinine Glucose POC Glucose 109 H 106 H Lactic Acid Calcium Ionized Calcium Phosphorus Magnesium AST ALT Alkaline Phosphatase Lactate Dehydrogenase NT-Pro-B Natriuret Pep Total Protein Albumin Arterial Blood Glucose Arterial Blood Ionized Calcium Urine WBC (Auto) Vancomycin Trough Phenytoin Crossmatch 10/11/20 10/11/20 10/11/20 04:00 04:00 06:08 WBC 27.0 H RBC Hgb Hct MCV MCH MCHC RDW 17.7 H Plt Count Lymph % (Auto) 6.3 L [place] % (Auto) Lymph # (Auto) [place] # (Auto) 1.5 H Baso # (Auto) Seg Neutrophils % 87.1 H Seg Neuts % (Manual) Lymphocytes % (Manual) Monocytes % (Manual) Nucleated RBC % Seg Neutrophils # 23.5 H Seg Neutrophils # Man Lymphocytes # (Manual) Monocytes # (Manual) PT INR APTT Fibrinogen D-Dimer ABG pH POC ABG pCO2 POC ABG pO2 ABG pO2 ABG HCO3 ABG Base Excess ABG Hemoglobin ABG Oxyhemoglobin ABG Sodium ABG Potassium ABG Chloride ABG Glucose VBG pH Oxyhemoglobin Carboxyhemoglobin Sodium Potassium 3.2 L Chloride 110.4 H Carbon Dioxide 19 L BUN 22 H Creatinine Glucose 116 H POC Glucose 107 H Lactic Acid Calcium 7.7 L Ionized Calcium Phosphorus Magnesium 1.60 L AST ALT Alkaline Phosphatase Lactate Dehydrogenase NT-Pro-B Natriuret Pep Total Protein Albumin Arterial Blood Glucose Arterial Blood Ionized Calcium Urine WBC (Auto) Vancomycin Trough Phenytoin Crossmatch 10/11/20 10/11/20 10/12/20 11:41 13:26 03:52 WBC RBC Hgb Hct MCV MCH MCHC RDW Plt Count Lymph % (Auto) [place] % (Auto) Lymph # (Auto) [place] # (Auto) Baso # (Auto) Seg Neutrophils % Seg Neuts % (Manual) Lymphocytes % (Manual) Monocytes % (Manual) Nucleated RBC % Seg Neutrophils # Seg Neutrophils # Man Lymphocytes # (Manual) Monocytes # (Manual) PT INR APTT Fibrinogen D-Dimer ABG pH POC ABG pCO2 POC ABG pO2 ABG pO2 ABG HCO3 ABG Base Excess ABG Hemoglobin ABG Oxyhemoglobin ABG Sodium ABG Potassium ABG Chloride ABG Glucose VBG pH Oxyhemoglobin Carboxyhemoglobin Sodium Potassium Chloride Carbon Dioxide BUN Creatinine Glucose POC Glucose 116 H 114 H Lactic Acid Calcium Ionized Calcium Phosphorus Magnesium AST ALT Alkaline Phosphatase Lactate Dehydrogenase NT-Pro-B Natriuret Pep Total Protein Albumin Arterial Blood Glucose Arterial Blood Ionized Calcium Urine WBC (Auto) 24.0 H Vancomycin Trough Phenytoin Crossmatch 10/12/20 10/12/20 10/12/20 04:24 14:47 21:33 WBC RBC Hgb Hct MCV MCH MCHC RDW Plt Count Lymph % (Auto) [place] % (Auto) Lymph # (Auto) [place] # (Auto) Baso # (Auto) Seg Neutrophils % Seg Neuts % (Manual) Lymphocytes % (Manual) Monocytes % (Manual) Nucleated RBC % Seg Neutrophils # Seg Neutrophils # Man Lymphocytes # (Manual) Monocytes # (Manual) PT INR APTT Fibrinogen D-Dimer ABG pH POC ABG pCO2 POC ABG pO2 ABG pO2 ABG HCO3 ABG Base Excess ABG Hemoglobin ABG Oxyhemoglobin ABG Sodium ABG Potassium ABG Chloride ABG Glucose VBG pH Oxyhemoglobin Carboxyhemoglobin Sodium Potassium Chloride 109.9 H Carbon Dioxide 13 L BUN 18 H Creatinine Glucose 119 H POC Glucose 107 H Lactic Acid Calcium 7.6 L Ionized Calcium Phosphorus Magnesium 1.60 L AST ALT Alkaline Phosphatase Lactate Dehydrogenase NT-Pro-B Natriuret Pep Total Protein Albumin Arterial Blood Glucose Arterial Blood Ionized Calcium Urine WBC (Auto) Vancomycin Trough Phenytoin Crossmatch 10/12/20 10/12/20 10/13/20 Unknown Unknown 07:00 WBC 24.3 H RBC 3.38 L Hgb 9.8 L Hct MCV MCH MCHC RDW 18.7 H Plt Count Lymph % (Auto) [place] % (Auto) Lymph # (Auto) [place] # (Auto) Baso # (Auto) Seg Neutrophils % Seg Neuts % (Manual) 93.5 H Lymphocytes % (Manual) 4.5 L Monocytes % (Manual) Nucleated RBC % Seg Neutrophils # Seg Neutrophils # Man 22.7 H Lymphocytes # (Manual) 1.1 L Monocytes # (Manual) PT INR APTT Fibrinogen D-Dimer ABG pH POC ABG pCO2 POC ABG pO2 ABG pO2 ABG HCO3 ABG Base Excess ABG Hemoglobin ABG Oxyhemoglobin ABG Sodium ABG Potassium ABG Chloride ABG Glucose VBG pH Oxyhemoglobin Carboxyhemoglobin Sodium 135 L D Potassium 3.1 L Chloride Carbon Dioxide 17 L BUN Creatinine Glucose 510 H* POC Glucose Lactic Acid Calcium 7.2 L Ionized Calcium Phosphorus Magnesium AST ALT Alkaline Phosphatase Lactate Dehydrogenase NT-Pro-B Natriuret Pep Total Protein Albumin Arterial Blood Glucose Arterial Blood Ionized Calcium Urine WBC (Auto) Vancomycin Trough Phenytoin 5.7 L Crossmatch 10/13/20 10/13/20 10/13/20 07:00 07:00 07:18 WBC 23.6 H RBC 3.26 L Hgb 9.4 L Hct 28.7 L MCV MCH MCHC RDW 18.3 H Plt Count Lymph % (Auto) [place] % (Auto) Lymph # (Auto) [place] # (Auto) Baso # (Auto) Seg Neutrophils % Seg Neuts % (Manual) Lymphocytes % (Manual) Monocytes % (Manual) Nucleated RBC % Seg Neutrophils # Seg Neutrophils # Man Lymphocytes # (Manual) Monocytes # (Manual) PT INR APTT Fibrinogen D-Dimer ABG pH 7.473 H POC ABG pCO2 20.7 L POC ABG pO2 137.9 H ABG pO2 ABG HCO3 ABG Base Excess ABG Hemoglobin 11.2 L ABG Oxyhemoglobin 98.3 H ABG Sodium 135.9 L ABG Potassium ABG Chloride 111.0 H ABG Glucose 109 H VBG pH Oxyhemoglobin Carboxyhemoglobin 0.3 L Sodium 135 L Potassium 3.5 L Chloride 109.1 H Carbon Dioxide 18 L BUN Creatinine Glucose POC Glucose Lactic Acid Calcium 7.3 L Ionized Calcium Phosphorus Magnesium 1.60 L AST ALT Alkaline Phosphatase Lactate Dehydrogenase NT-Pro-B Natriuret Pep Total Protein Albumin Arterial Blood Glucose 109 H Arterial Blood Ionized Calcium Urine WBC (Auto) Vancomycin Trough Phenytoin Crossmatch 10/14/20 10/14/20 10/15/20 04:00 04:00 05:50 WBC 28.6 H 23.2 H RBC 3.61 L 3.43 L Hgb 9.9 L Hct 30.0 L MCV MCH MCHC RDW 18.3 H 18.2 H Plt Count Lymph % (Auto) [place] % (Auto) Lymph # (Auto) [place] # (Auto) Baso # (Auto) Seg Neutrophils % Seg Neuts % (Manual) 88.0 H 90.0 H Lymphocytes % (Manual) 5.0 L 4.0 L Monocytes % (Manual) Nucleated RBC % Seg Neutrophils # Seg Neutrophils # Man 25.2 H 20.9 H Lymphocytes # (Manual) 0.9 L Monocytes # (Manual) 1.4 H 0.9 H PT INR APTT Fibrinogen D-Dimer ABG pH POC ABG pCO2 POC ABG pO2 ABG pO2 ABG HCO3 ABG Base Excess ABG Hemoglobin ABG Oxyhemoglobin ABG Sodium ABG Potassium ABG Chloride ABG Glucose VBG pH Oxyhemoglobin Carboxyhemoglobin Sodium Potassium Chloride 109.9 H Carbon Dioxide 17 L BUN Creatinine Glucose POC Glucose Lactic Acid Calcium Ionized Calcium Phosphorus Magnesium AST ALT Alkaline Phosphatase Lactate Dehydrogenase NT-Pro-B Natriuret Pep Total Protein Albumin Arterial Blood Glucose Arterial Blood Ionized Calcium Urine WBC (Auto) Vancomycin Trough Phenytoin Crossmatch 10/15/20 10/16/20 10/17/20 05:50 11:57 04:57 WBC 15.2 H RBC 3.43 L Hgb Hct MCV MCH MCHC RDW 18.1 H Plt Count Lymph % (Auto) [place] % (Auto) Lymph # (Auto) [place] # (Auto) Baso # (Auto) Seg Neutrophils % Seg Neuts % (Manual) Lymphocytes % (Manual) Monocytes % (Manual) Nucleated RBC % Seg Neutrophils # Seg Neutrophils # Man Lymphocytes # (Manual) Monocytes # (Manual) PT INR APTT Fibrinogen D-Dimer ABG pH POC ABG pCO2 POC ABG pO2 ABG pO2 ABG HCO3 ABG Base Excess ABG Hemoglobin ABG Oxyhemoglobin ABG Sodium ABG Potassium ABG Chloride ABG Glucose VBG pH Oxyhemoglobin Carboxyhemoglobin Sodium Potassium Chloride 110.3 H Carbon Dioxide 18 L BUN Creatinine Glucose 105 H POC Glucose 111 H Lactic Acid Calcium 8.3 L Ionized Calcium Phosphorus Magnesium AST ALT Alkaline Phosphatase Lactate Dehydrogenase NT-Pro-B Natriuret Pep Total Protein Albumin Arterial Blood Glucose Arterial Blood Ionized Calcium Urine WBC (Auto) Vancomycin Trough Phenytoin Crossmatch 10/17/20 10/17/20 10/18/20 05:25 21:16 01:31 WBC RBC Hgb Hct MCV MCH MCHC RDW Plt Count Lymph % (Auto) [place] % (Auto) Lymph # (Auto) [place] # (Auto) Baso # (Auto) Seg Neutrophils % Seg Neuts % (Manual) Lymphocytes % (Manual) Monocytes % (Manual) Nucleated RBC % Seg Neutrophils # Seg Neutrophils # Man Lymphocytes # (Manual) Monocytes # (Manual) PT INR APTT Fibrinogen D-Dimer ABG pH POC ABG pCO2 POC ABG pO2 ABG pO2 ABG HCO3 ABG Base Excess ABG Hemoglobin ABG Oxyhemoglobin ABG Sodium ABG Potassium ABG Chloride ABG Glucose VBG pH Oxyhemoglobin Carboxyhemoglobin Sodium Potassium Chloride Carbon Dioxide BUN Creatinine Glucose POC Glucose 107 H 106 H 119 H Lactic Acid Calcium Ionized Calcium Phosphorus Magnesium AST ALT Alkaline Phosphatase Lactate Dehydrogenase NT-Pro-B Natriuret Pep Total Protein Albumin Arterial Blood Glucose Arterial Blood Ionized Calcium Urine WBC (Auto) Vancomycin Trough Phenytoin Crossmatch 10/18/20 10/18/20 10/19/20 05:45 11:23 01:14 WBC RBC Hgb Hct MCV MCH MCHC RDW Plt Count Lymph % (Auto) [place] % (Auto) Lymph # (Auto) [place] # (Auto) Baso # (Auto) Seg Neutrophils % Seg Neuts % (Manual) Lymphocytes % (Manual) Monocytes % (Manual) Nucleated RBC % Seg Neutrophils # Seg Neutrophils # Man Lymphocytes # (Manual) Monocytes # (Manual) PT INR APTT Fibrinogen D-Dimer ABG pH POC ABG pCO2 POC ABG pO2 ABG pO2 ABG HCO3 ABG Base Excess ABG Hemoglobin ABG Oxyhemoglobin ABG Sodium ABG Potassium ABG Chloride ABG Glucose VBG pH Oxyhemoglobin Carboxyhemoglobin Sodium Potassium Chloride Carbon Dioxide BUN Creatinine Glucose POC Glucose 106 H 115 H 108 H Lactic Acid Calcium Ionized Calcium Phosphorus Magnesium AST ALT Alkaline Phosphatase Lactate Dehydrogenase NT-Pro-B Natriuret Pep Total Protein Albumin Arterial Blood Glucose Arterial Blood Ionized Calcium Urine WBC (Auto) Vancomycin Trough Phenytoin Crossmatch 10/19/20 10/20/20 10/20/20 09:57 05:40 07:59 WBC RBC Hgb Hct MCV MCH MCHC RDW Plt Count Lymph % (Auto) [place] % (Auto) Lymph # (Auto) [place] # (Auto) Baso # (Auto) Seg Neutrophils % Seg Neuts % (Manual) Lymphocytes % (Manual) Monocytes % (Manual) Nucleated RBC % Seg Neutrophils # Seg Neutrophils # Man Lymphocytes # (Manual) Monocytes # (Manual) PT INR APTT Fibrinogen D-Dimer ABG pH POC ABG pCO2 POC ABG pO2 ABG pO2 ABG HCO3 ABG Base Excess ABG Hemoglobin ABG Oxyhemoglobin ABG Sodium ABG Potassium ABG Chloride ABG Glucose VBG pH Oxyhemoglobin Carboxyhemoglobin Sodium Potassium Chloride Carbon Dioxide BUN Creatinine Glucose 106 H POC Glucose 122 H 109 H Lactic Acid Calcium Ionized Calcium Phosphorus Magnesium AST ALT Alkaline Phosphatase Lactate Dehydrogenase NT-Pro-B Natriuret Pep Total Protein Albumin Arterial Blood Glucose Arterial Blood Ionized Calcium Urine WBC (Auto) Vancomycin Trough Phenytoin Crossmatch 10/20/20 10/20/20 10/21/20 16:52 16:52 13:54 WBC 18.8 H 17.0 H RBC Hgb Hct MCV MCH MCHC RDW 17.7 H 17.8 H Plt Count 547 H 544 H Lymph % (Auto) 11.2 L [place] % (Auto) 8.1 H Lymph # (Auto) [place] # (Auto) 1.5 H Baso # (Auto) 0.2 H Seg Neutrophils % 78.8 H Seg Neuts % (Manual) Lymphocytes % (Manual) Monocytes % (Manual) Nucleated RBC % Seg Neutrophils # 14.8 H Seg Neutrophils # Man Lymphocytes # (Manual) Monocytes # (Manual) PT INR APTT Fibrinogen D-Dimer ABG pH POC ABG pCO2 POC ABG pO2 ABG pO2 ABG HCO3 ABG Base Excess ABG Hemoglobin ABG Oxyhemoglobin ABG Sodium ABG Potassium ABG Chloride ABG Glucose VBG pH Oxyhemoglobin Carboxyhemoglobin Sodium Potassium Chloride Carbon Dioxide BUN Creatinine Glucose POC Glucose Lactic Acid Calcium Ionized Calcium Phosphorus Magnesium AST ALT Alkaline Phosphatase Lactate Dehydrogenase NT-Pro-B Natriuret Pep Total Protein Albumin Arterial Blood Glucose Arterial Blood Ionized Calcium Urine WBC (Auto) Vancomycin Trough 34.5 H Phenytoin Crossmatch 01/06/21 01/07/21 01/08/21 13:54 07:26 05:34 WBC 18.7 H 13.0 H RBC 3.64 L 3.50 L Hgb Hct 30.0 L MCV MCH MCHC 35 H RDW 17.7 H 17.6 H Plt Count 502 H 503 H Lymph % (Auto) [place] % (Auto) Lymph # (Auto) [place] # (Auto) Baso # (Auto) Seg Neutrophils % Seg Neuts % (Manual) Lymphocytes % (Manual) Monocytes % (Manual) Nucleated RBC % Seg Neutrophils # Seg Neutrophils # Man Lymphocytes # (Manual) Monocytes # (Manual) PT INR APTT Fibrinogen D-Dimer ABG pH POC ABG pCO2 POC ABG pO2 ABG pO2 ABG HCO3 ABG Base Excess ABG Hemoglobin ABG Oxyhemoglobin ABG Sodium ABG Potassium ABG Chloride ABG Glucose VBG pH Oxyhemoglobin Carboxyhemoglobin Sodium 136 L Potassium Chloride Carbon Dioxide BUN Creatinine Glucose 120 H POC Glucose Lactic Acid Calcium Ionized Calcium Phosphorus Magnesium AST ALT Alkaline Phosphatase Lactate Dehydrogenase NT-Pro-B Natriuret Pep Total Protein Albumin Arterial Blood Glucose Arterial Blood Ionized Calcium Urine WBC (Auto) Vancomycin Trough Phenytoin Crossmatch 10/23/20 10/26/20 10/27/20 05:34 10:30 07:53 WBC 13.6 H RBC 3.38 L Hgb 10.0 L Hct 28.8 L MCV MCH MCHC 35 H RDW 17.6 H Plt Count Lymph % (Auto) [place] % (Auto) Lymph # (Auto) [place] # (Auto) Baso # (Auto) Seg Neutrophils % Seg Neuts % (Manual) Lymphocytes % (Manual) Monocytes % (Manual) Nucleated RBC % Seg Neutrophils # Seg Neutrophils # Man Lymphocytes # (Manual) Monocytes # (Manual) PT INR APTT Fibrinogen D-Dimer ABG pH 7.459 H POC ABG pCO2 POC ABG pO2 ABG pO2 112.2 H ABG HCO3 ABG Base Excess ABG Hemoglobin ABG Oxyhemoglobin ABG Sodium ABG Potassium ABG Chloride ABG Glucose VBG pH Oxyhemoglobin Carboxyhemoglobin Sodium 135 L Potassium Chloride Carbon Dioxide BUN Creatinine Glucose 105 H POC Glucose Lactic Acid Calcium Ionized Calcium Phosphorus Magnesium AST ALT Alkaline Phosphatase Lactate Dehydrogenase NT-Pro-B Natriuret Pep Total Protein Albumin Arterial Blood Glucose Arterial Blood Ionized Calcium Urine WBC (Auto) Vancomycin Trough Phenytoin Crossmatch 10/27/20 10/27/20 10/28/20 07:53 11:31 05:19 WBC RBC Hgb Hct MCV MCH MCHC RDW Plt Count Lymph % (Auto) [place] % (Auto) Lymph # (Auto) [place] # (Auto) Baso # (Auto) Seg Neutrophils % Seg Neuts % (Manual) Lymphocytes % (Manual) Monocytes % (Manual) Nucleated RBC % Seg Neutrophils # Seg Neutrophils # Man Lymphocytes # (Manual) Monocytes # (Manual) PT INR APTT Fibrinogen D-Dimer ABG pH POC ABG pCO2 POC ABG pO2 ABG pO2 ABG HCO3 ABG Base Excess ABG Hemoglobin ABG Oxyhemoglobin ABG Sodium ABG Potassium ABG Chloride ABG Glucose VBG pH Oxyhemoglobin Carboxyhemoglobin Sodium Potassium Chloride Carbon Dioxide BUN 20 H Creatinine Glucose 112 H POC Glucose 113 H 112 H Lactic Acid Calcium Ionized Calcium Phosphorus Magnesium AST 83 H ALT Alkaline Phosphatase Lactate Dehydrogenase NT-Pro-B Natriuret Pep Total Protein Albumin 3.8 L Arterial Blood Glucose Arterial Blood Ionized Calcium Urine WBC (Auto) Vancomycin Trough Phenytoin Crossmatch 10/29/20 10/29/20 10/29/20 07:56 07:56 11:37 WBC 13.6 H RBC Hgb Hct MCV MCH MCHC RDW 17.0 H Plt Count Lymph % (Auto) [place] % (Auto) Lymph # (Auto) [place] # (Auto) Baso # (Auto) Seg Neutrophils % Seg Neuts % (Manual) 80.0 H Lymphocytes % (Manual) Monocytes % (Manual) Nucleated RBC % Seg Neutrophils # Seg Neutrophils # Man 10.9 H Lymphocytes # (Manual) Monocytes # (Manual) PT INR APTT Fibrinogen D-Dimer ABG pH POC ABG pCO2 POC ABG pO2 ABG pO2 ABG HCO3 ABG Base Excess ABG Hemoglobin ABG Oxyhemoglobin ABG Sodium ABG Potassium ABG Chloride ABG Glucose VBG pH Oxyhemoglobin Carboxyhemoglobin Sodium Potassium Chloride Carbon Dioxide BUN Creatinine Glucose POC Glucose 108 H Lactic Acid Calcium Ionized Calcium Phosphorus 4.70 H Magnesium AST ALT Alkaline Phosphatase Lactate Dehydrogenase NT-Pro-B Natriuret Pep Total Protein Albumin Arterial Blood Glucose Arterial Blood Ionized Calcium Urine WBC (Auto) Vancomycin Trough Phenytoin Crossmatch 10/29/20 10/30/20 10/30/20 13:32 12:11 17:19 WBC RBC Hgb Hct MCV MCH MCHC RDW Plt Count Lymph % (Auto) [place] % (Auto) Lymph # (Auto) [place] # (Auto) Baso # (Auto) Seg Neutrophils % Seg Neuts % (Manual) Lymphocytes % (Manual) Monocytes % (Manual) Nucleated RBC % Seg Neutrophils # Seg Neutrophils # Man Lymphocytes # (Manual) Monocytes # (Manual) PT INR APTT Fibrinogen D-Dimer ABG pH POC ABG pCO2 POC ABG pO2 ABG pO2 ABG HCO3 ABG Base Excess ABG Hemoglobin ABG Oxyhemoglobin ABG Sodium ABG Potassium ABG Chloride ABG Glucose VBG pH Oxyhemoglobin Carboxyhemoglobin Sodium Potassium Chloride Carbon Dioxide BUN Creatinine Glucose POC Glucose 108 H 106 H 107 H Lactic Acid Calcium Ionized Calcium Phosphorus Magnesium AST ALT Alkaline Phosphatase Lactate Dehydrogenase NT-Pro-B Natriuret Pep Total Protein Albumin Arterial Blood Glucose Arterial Blood Ionized Calcium Urine WBC (Auto) Vancomycin Trough Phenytoin Crossmatch 10/31/20 10/31/20 11/01/20 03:20 05:43 04:55 WBC RBC Hgb Hct MCV MCH MCHC RDW Plt Count Lymph % (Auto) [place] % (Auto) Lymph # (Auto) [place] # (Auto) Baso # (Auto) Seg Neutrophils % Seg Neuts % (Manual) Lymphocytes % (Manual) Monocytes % (Manual) Nucleated RBC % Seg Neutrophils # Seg Neutrophils # Man Lymphocytes # (Manual) Monocytes # (Manual) PT INR APTT Fibrinogen D-Dimer ABG pH POC ABG pCO2 POC ABG pO2 ABG pO2 ABG HCO3 ABG Base Excess ABG Hemoglobin ABG Oxyhemoglobin ABG Sodium ABG Potassium ABG Chloride ABG Glucose VBG pH Oxyhemoglobin Carboxyhemoglobin Sodium Potassium Chloride Carbon Dioxide BUN Creatinine Glucose POC Glucose 108 H 115 H 108 H Lactic Acid Calcium Ionized Calcium Phosphorus Magnesium AST ALT Alkaline Phosphatase Lactate Dehydrogenase NT-Pro-B Natriuret Pep Total Protein Albumin Arterial Blood Glucose Arterial Blood Ionized Calcium Urine WBC (Auto) Vancomycin Trough Phenytoin Crossmatch 11/01/20 11/01/20 11/01/20 05:01 16:47 21:36 WBC RBC Hgb Hct MCV MCH MCHC RDW Plt Count Lymph % (Auto) [place] % (Auto) Lymph # (Auto) [place] # (Auto) Baso # (Auto) Seg Neutrophils % Seg Neuts % (Manual) Lymphocytes % (Manual) Monocytes % (Manual) Nucleated RBC % Seg Neutrophils # Seg Neutrophils # Man Lymphocytes # (Manual) Monocytes # (Manual) PT INR APTT Fibrinogen D-Dimer ABG pH POC ABG pCO2 POC ABG pO2 ABG pO2 ABG HCO3 ABG Base Excess ABG Hemoglobin ABG Oxyhemoglobin ABG Sodium ABG Potassium ABG Chloride ABG Glucose VBG pH Oxyhemoglobin Carboxyhemoglobin Sodium 135 L Potassium Chloride Carbon Dioxide BUN Creatinine Glucose POC Glucose 116 H 112 H Lactic Acid Calcium Ionized Calcium Phosphorus Magnesium AST 93 H ALT Alkaline Phosphatase 132 H Lactate Dehydrogenase NT-Pro-B Natriuret Pep Total Protein Albumin 3.6 L Arterial Blood Glucose Arterial Blood Ionized Calcium Urine WBC (Auto) Vancomycin Trough Phenytoin Crossmatch 11/02/20 11/03/20 11/04/20 17:45 21:49 05:00 WBC 13.8 H RBC Hgb Hct MCV MCH MCHC RDW 16.6 H Plt Count Lymph % (Auto) 11.8 L [place] % (Auto) 11.0 H Lymph # (Auto) [place] # (Auto) 1.5 H Baso # (Auto) Seg Neutrophils % 75.1 H Seg Neuts % (Manual) Lymphocytes % (Manual) Monocytes % (Manual) Nucleated RBC % Seg Neutrophils # 10.4 H Seg Neutrophils # Man Lymphocytes # (Manual) Monocytes # (Manual) PT INR APTT Fibrinogen D-Dimer ABG pH POC ABG pCO2 POC ABG pO2 ABG pO2 ABG HCO3 ABG Base Excess ABG Hemoglobin ABG Oxyhemoglobin ABG Sodium ABG Potassium ABG Chloride ABG Glucose VBG pH Oxyhemoglobin Carboxyhemoglobin Sodium Potassium Chloride Carbon Dioxide BUN Creatinine Glucose POC Glucose 107 H 109 H Lactic Acid Calcium Ionized Calcium Phosphorus Magnesium AST ALT Alkaline Phosphatase Lactate Dehydrogenase NT-Pro-B Natriuret Pep Total Protein Albumin Arterial Blood Glucose Arterial Blood Ionized Calcium Urine WBC (Auto) Vancomycin Trough Phenytoin Crossmatch 11/04/20 11/04/20 11/04/20 05:00 06:03 23:47 WBC RBC Hgb Hct MCV MCH MCHC RDW Plt Count Lymph % (Auto) [place] % (Auto) Lymph # (Auto) [place] # (Auto) Baso # (Auto) Seg Neutrophils % Seg Neuts % (Manual) Lymphocytes % (Manual) Monocytes % (Manual) Nucleated RBC % Seg Neutrophils # Seg Neutrophils # Man Lymphocytes # (Manual) Monocytes # (Manual) PT INR APTT Fibrinogen D-Dimer ABG pH POC ABG pCO2 POC ABG pO2 ABG pO2 ABG HCO3 ABG Base Excess ABG Hemoglobin ABG Oxyhemoglobin ABG Sodium ABG Potassium ABG Chloride ABG Glucose VBG pH Oxyhemoglobin Carboxyhemoglobin Sodium Potassium Chloride Carbon Dioxide BUN Creatinine Glucose 112 H POC Glucose 107 H 121 H Lactic Acid Calcium Ionized Calcium Phosphorus Magnesium AST 90 H ALT Alkaline Phosphatase Lactate Dehydrogenase NT-Pro-B Natriuret Pep Total Protein Albumin 3.8 L Arterial Blood Glucose Arterial Blood Ionized Calcium Urine WBC (Auto) Vancomycin Trough Phenytoin Crossmatch 11/05/20 07:47 WBC RBC Hgb Hct MCV MCH MCHC RDW Plt Count Lymph % (Auto) [place] % (Auto) Lymph # (Auto) [place] # (Auto) Baso # (Auto) Seg Neutrophils % Seg Neuts % (Manual) Lymphocytes % (Manual) Monocytes % (Manual) Nucleated RBC % Seg Neutrophils # Seg Neutrophils # Man Lymphocytes # (Manual) Monocytes # (Manual) PT INR APTT Fibrinogen D-Dimer ABG pH POC ABG pCO2 POC ABG pO2 ABG pO2 ABG HCO3 ABG Base Excess ABG Hemoglobin ABG Oxyhemoglobin ABG Sodium ABG Potassium ABG Chloride ABG Glucose VBG pH Oxyhemoglobin Carboxyhemoglobin Sodium Potassium Chloride Carbon Dioxide BUN Creatinine Glucose POC Glucose 111 H Lactic Acid Calcium Ionized Calcium Phosphorus Magnesium AST ALT Alkaline Phosphatase Lactate Dehydrogenase NT-Pro-B Natriuret Pep Total Protein Albumin Arterial Blood Glucose Arterial Blood Ionized Calcium Urine WBC (Auto) Vancomycin Trough Phenytoin Crossmatch
--- NOTE | 2020-11-05 14:47 | Progress Note ---
Assessment and Plan Assessment and plan: 30 y/o female patient with Eclampsia/help syndrome, s/p emergent section with DIC, hemorrhage, supracervical abdominal hysterectomy, acute respiratory failure , tracheostomy on T-piece with morbid obesity, s/p cardiac arrest 12/08/2019 status post CPR per ACLS, acute hypoxic brain injury Acute kidney injury improved, severe shock requiring pressors, DIC septic shock improved, history of C. difficile colitis on vancomycin. Tracheostomy on T-piece, continues to require 5 L of oxygen. COVID-19 negative C. difficile positive; Patient in contact isolation --Afebrile: Blood, urine, tracheal aspirate cultures New cultures negative to date Monitor off antibiotics Closely monitor --Acute hypoxic respiratory failure: Tracheostomy on T-piece , 5 L oxygen, saturating 100% Nebulizers, continue oxygen titrate O2 sats to more than 90% Pulmonary critical following --Sepsis; received antibiotics Continue to monitor off antibiotics ID following --Cardiac arrest; 10/07/2020 ,status post CPR --COVID-19 test negative; 10/08/2020 --C. difficile colitis test; positive; 10/16/2020 --Acute metabolic encephalopathy --Acute hypoxic brain injury; Supportive care, closely monitor --Acute kidney injury; vasomotor nephropathy Resolved, renal function within normal limits, closely monitor --Shock; monitor of pressors Blood pressures reasonable level --DIC; sepsis, septic shock, resolved --History of preeclampsia; / hemorrhage Status post hysterectomy --History of C. difficile colitis; completed oral vancomycin --DVT/SVT and right upper extremity Very poor prognosis, Consults recommendations noted and appreciated We will closely monitor the patient and adjust management as needed Plan of care reviewed with the patient's nurse. Brief history; 30 year old -[place] female CHE 10/25/20 at 36w5d who presents with seizures in triage on 10/02/20. Pt was not able to provide history but per pt's , she presented to the hospital to return a 24 hour urine specimen for analysis. She then suddenly reported that she did not feel good. She was taken to labor and delivery and shortly after arrival, she began seizing. During this time, a code met was called because the patient became hypoxic. She was then noted to be without a pulse. Chest compressions were started immediately, and the patient was emergently taken to the operating room for delivery of the fetus. Off note, This patient has had care at [facility] with comanagement by [facility] since 11 wks complicated by ADHD, morbid obesity, generalized anxiety disorder, panic attacks, chronic narcotic use, fibromyalgia, GERD, Irritable Bowel Syndrome, Migraines, h/o endometrial ablation and ovarian vein embolization, genital herpes, insomnia, LGA fetus, nausea and vomiting, polyhydramnios, quad screen positive for Down's Syndrome, and previous x 3. She is GBS negative. , Patient tracheostomy on ventilatory support, unable to wean, continue supportive care poor prognosis 11:30: Pt brought to L&D triage for evaluation of possible labor. Pt accompanied by her spouse. Pt spouse poor historian; unable to obtain history- allergies at this time. Pt taken from registration to triage area via WC. Pt unresponsive, actively seizing with snorous respirations. naturopathic physician, Kassy, called and requesting assistance. 11:35: Multiple staff at bedside. Pt 02 sat 67% on nonrebreather, unable to read BP . Yifan Theodore CRNA, at bedside for intubation and assistance with IV insertion. INT attempt by multiple RNs unsuccessful at this time. 11:42: Pt being bagged by KORIN, 02% 79%. No pulse palpated, compressions on at this time; bharati young called and Dr. Newberry preparing OR for emergent c/s. 11:44: Continued compressions on stretcher while transporting pt to OR 1. Pt being bagged with jaw thrust manuever in place by KORIN Stringer student. 11:45: Arrival to OR 1. Dr. Newberry and Dr. Portillo present for emergent c/s. Code team arrived for continued care. patient revived and c/s done Patient has been bleeding from C/s site followed by supracervical hysterectomy for severe bleeding, Patient transfused multiple units of PRBC, Patient in DIC. Patient transferred to the ICU Hospital course; 10/03. Patient seen and examined at bedside this morning. Patient is nonre sponsive and mechanically ventilated. On pressors. Labs reviewed-has leukocytosis, anemia, thrombocytopenia, ADOLPH and lactic acidosis. Started on IV antibiotics to cover possible sepsis secondary to DIC. Hematology oncology recommendations appreciated-needs additional cryoprecipitate and FFP. Monitor D-dimer, fibrinogen and frequent labs. Nephrology consulted for lactic acidosis and ADOLPH. 10/04. Remains mechanically ventilated. Kevin antibiotics. Labs shows improved acidosis - lactic acid 3.5. Hb drop noted. Getting transfused 2 units PRBCs. Platelet count is ~40k. Continue to monitor labs closely. Critical care team on board. 10/05; xray reviewed, concerning for multifocal infilrate, likely underlying Pneumonia, will add ID consult to assist with management of this critically ill patient, start tube feed, closely monitor renal system 10/06: Resumed care, remains on mechanical ventilation. No active bleeding, H&H stable. Continue to monitor CBC and BMP. Continue IV antibiotic for underlying pneumonia. Follow critical care and ID recommendation. 10/07: Remains on mechanical ventilation. No active bleeding, H&H stable. Critical care following, wean off ventilation as tolerated. 10/08: Patient had another cardiac arrest last night. Remains on mechanical ventilation, update family. Continue supportive care -poor prognosis 10/09: Called patient mother and discussed about patient care and management. Answered all question to best of my knowledge and family satisfaction. Patient remains on mechanical ventilation, cardiac arrest x2 so far. Critically sick, poor prognosis 10/10: remains on mechanical ventilation. h/h stable, no active bleeding. monitor CBC/BMP 10/11: WBC trended up with diarrhea, started on vancomycin po. remains on MV, off pressor, tolerating TF 10/12: remains on MV, off pressor, tolerating TF. called family for update but unable to reach, could not leave message as it was full. cont supportive care, wean off vent as tolerated. 10/13/2020; patient is on mechanical ventilation, tolerating tube feeding. Patient has labored breathing. Neuro was consulted and recommend MRI. Patient is on Precedex. Rectal tube in place. 10/14/2020; patient is on mechanical ventilation, Precedex. Patient had fever and blood culture ordered. Patient is on IV vancomycin per ID recommendation. Neuro consulted and recommend MRI. Continue to monitor. Prognosis is guarded. 10/15/2020; patient is on mechanical ventilation, Precedex. Patient had fever and blood culture ordered. Patient is on IV vancomycin per ID recommendation. Neuro consulted and recommend MRI. Continue to monitor. Prognosis is guarded. 10/17: Remains with C.DIFF and Bactermia, Poor prognosis. No purposeful movement. MRI and EEG discussed with Intensvisit, Continue aggressive BP control. 10/18: Blood pressure better controlled MRI done 10/15 shows mild improvement in edema. We will continue to monitor mother was at bedside yesterday. Nursing documentation trach and PEG discussed with the mother including goals of care. She is still in denial about the gravity of her daughters her condition which is understandable considering her age. Continue aggressive management at this time. Await for bacteremia to clear by ID before placing PICC line. 10/19: Patient for possible PEG and Trach, ID following, repeat cultures remain negative. Poor prognosis 10/20: Pt noted to DVT and SVT in the RUE, Vascular consult and will also obtain Hematology for possible considering changing in Anticoagulation. CONTINUE TO MONITOR H/H and PLT. Family updated by [employer]ens[employer]. Heparin gtt started. Will check CBC and BMP 10/21: Continue supporive care, Diarrhea now resolving, But still with persistent Fever, May need repeat CT/AP per ID, still with profused Encephalopathy 10/22: Continue supportive care, weaning, awaiting repeat Imaging. FOLLOW Fever curve. Enoxparin restarted 10/23: Continue supportive care, wean as tolerated. 10/24; Started on CPAP trial, discussed with pulmonary, still with diarrhea. 10/25: Patients seen and examined, no clinical changes, still with diarrhea. ?meaningful recovery. 10/26: Clinically unchanged, continue CPAP trial, Will discuss with Neurology about re-evaluation, ?Need for repeat CT head. ?PRESS considering initial elevated BP, now stable. 10/27; tracheostomy on vent, weaning trials, vital signs noted, poor prognosis 10/28; unable to wean, tracheostomy on vent. Sepsis. Continue current management. Consults and recommendations noted and appreciated 10/30/2020;Patient on T-piece 5 L of oxygen not in acute distress, noncommunicative 11/02/2020; patient on T-piece 5 L of oxygen 11/03/2020; patient's fever slightly improved low-grade, continue current management, remains on T-piece with 5 L of oxygen 11/04/2020; T-max last 24 hours 100.3 F, new cultures negative to date, monitor off antibiotics Patient is off Levophed, blood pressures reasonable level, tracheostomy on T- piece 3 to 5 L nasal cannula oxygen 11/05/2020; tracheostomy on T-piece patient remains on 5 L of nasal cannula oxygen, unresponsive severe hypoxic brain injury I will call patient's spouse and patient's mother to update on patient's condition today The high probability of a clinically significant, sudden or life threatening deterioration of the [MULTIPLE ORGAN] system(s) required my full and direct attention, intervention and personal management. The aggregate critical care time was [32 ] minutes. This time is in addition to time spent performing reported procedures but includes the following: [X] Data Review and interpretation [X] Patient assessment and monitoring of vital signs [X] Documentation [X] Medication orders and management History Interval history: I have seen and examined the patient at the bedside this morning Patient's chart and medications reviewed Contact isolation because of C. difficile. Patient tracheostomy on T-piece 5 L of nasal cannula oxygen Noncommunicative Vital signs reviewed Hospitalist Physical - Constitutional Vitals: Temp Pulse Resp BP Pulse Ox 99.6 F 84 11 L 115/66 100 11/05/20 12:00 11/05/20 14:17 11/05/20 12:00 11/05/20 14:17 11/05/20 12:00 General appearance: Present: no acute distress, well-nourished, obese, other (On T-piece 5 L oxygen, noncommunicative) - EENT Eyes: Present: PERRL, EOM intact - Neck Neck: Present: supple, normal ROM - Respiratory Respiratory effort: normal Respiratory: bilateral: diminished, negative: rales, rhonchi, wheezing - Cardiovascular Rhythm: regular Heart Sounds: Present: S1 & S2 - Extremities Extremities: no ischemia, No edema - Abdominal General gastrointestinal: soft, non-tender, non-distended, normal bowel sounds - Integumentary Integumentary: Present: clear, warm - Psychiatric Psychiatric: other (Noncommunicative) - Neurologic Neurologic: other (Noncommunicative) HEART Score - HEART Score Age: < 45 Risk factors: 1-2 risk factors - Critical Actions Critical Actions: >7 pts:50-65% risk of adverse cardiac event. Early invasive measures Results - Labs CBC & Chem 7: 11/04/20 05:00 11/04/20 05:00 Labs: Laboratory Last Values WBC 13.8 K/mm3 (4.5-11.0) H 11/04/20 05:00 RBC 3.72 M/mm3 (3.65-5.03) 11/04/20 05:00 Hgb 10.6 gm/dl (10.1-14.3) 11/04/20 05:00 Hgb Comment See scanned result 10/04/20 Unknown Hct 31.8 % (30.3-42.9) 11/04/20 05:00 MCV 86 fl (79-97) 11/04/20 05:00 MCH 28 pg (28-32) 11/04/20 05:00 MCHC 33 % (30-34) 11/04/20 05:00 RDW 16.6 % (13.2-15.2) H 11/04/20 05:00 Plt Count 293 K/mm3 (140-440) 11/04/20 05:00 Lymph % (Auto) 11.8 % (13.4-35.0) L 11/04/20 05:00 [place] % (Auto) 11.0 % (0.0-7.3) H 11/04/20 05:00 Eos % (Auto) 2.0 % (0.0-4.3) 11/04/20 05:00 Baso % (Auto) 0.1 % (0.0-1.8) 11/04/20 05:00 Lymph # (Auto) 1.6 K/mm3 (1.2-5.4) 11/04/20 05:00 Garden # (Auto) 1.5 K/mm3 (0.0-0.8) H 11/04/20 05:00 Eos # (Auto) 0.3 K/mm3 (0.0-0.4) 11/04/20 05:00 Baso # (Auto) 0.0 K/mm3 (0.0-0.1) 11/04/20 05:00 Add Manual Diff Complete 10/29/20 07:56 Total Counted 100 10/29/20 07:56 Seg Neutrophils % 75.1 % (40.0-70.0) H 11/04/20 05:00 Seg Neuts % (Manual) 80.0 % (40.0-70.0) H 10/29/20 07:56 Band Neutrophils % 2.0 % 10/15/20 05:50 Lymphocytes % (Manual) 15.0 % (13.4-35.0) 10/29/20 07:56 Reactive Lymphs % (Man) 1.0 % 10/02/20 12:18 Monocytes % (Manual) 4.0 % (0.0-7.3) 10/29/20 07:56 Eosinophils % (Manual) 1.0 % (0.0-4.3) 10/29/20 07:56 Myelocytes % 2.0 % 10/02/20 13:05 Metamyelocytes % 1.0 % 10/14/20 04:00 Nucleated RBC % Not Reportable 10/29/20 07:56 Seg Neutrophils # 10.4 K/mm3 (1.8-7.7) H 11/04/20 05:00 Seg Neutrophils # Man 10.9 K/mm3 (1.8-7.7) H 10/29/20 07:56 Band Neutrophils # 0.0 K/mm3 10/29/20 07:56 Lymphocytes # (Manual) 2.0 K/mm3 (1.2-5.4) 10/29/20 07:56 Abs React Lymphs (Man) 0.0 K/mm3 10/29/20 07:56 Monocytes # (Manual) 0.5 K/mm3 (0.0-0.8) 10/29/20 07:56 Eosinophils # (Manual) 0.1 K/mm3 (0.0-0.4) 10/29/20 07:56 Basophils # (Manual) 0.0 K/mm3 (0.0-0.1) 10/29/20 07:56 Metamyelocytes # 0.0 K/mm3 10/29/20 07:56 Myelocytes # 0.0 K/mm3 10/29/20 07:56 Promyelocytes # 0.0 K/mm3 10/29/20 07:56 Blast Cells # 0.0 K/mm3 10/29/20 07:56 WBC Morphology Not Reportable 10/29/20 07:56 Hypersegmented Neuts Not Reportable 10/29/20 07:56 Hyposegmented Neuts Not Reportable 10/29/20 07:56 Hypogranular Neuts Not Reportable 10/29/20 07:56 Smudge Cells Not Reportable 10/29/20 07:56 Toxic Granulation Not Reportable 10/29/20 07:56 Toxic Vacuolation Not Reportable 10/29/20 07:56 Dohle Bodies Not Reportable 10/29/20 07:56 Pelger-Huet Anomaly Not Reportable 10/29/20 07:56 Ester Rods Not Reportable 10/29/20 07:56 Platelet Estimate Consistent w auto 10/29/20 07:56 Clumped Platelets Not Reportable 10/29/20 07:56 Plt Clumps, EDTA Not Reportable 10/29/20 07:56 Large Platelets Few 10/29/20 07:56 Giant Platelets Not Reportable 10/29/20 07:56 Platelet Satelliting Not Reportable 10/29/20 07:56 Plt Morphology Comment Not Reportable 10/29/20 07:56 RBC Morphology Not Reportable 10/29/20 07:56 Dimorphic RBCs Not Reportable 10/29/20 07:56 Polychromasia Rare 10/29/20 07:56 Hypochromasia Few 10/29/20 07:56 Poikilocytosis Not Reportable 10/29/20 07:56 Anisocytosis Not Reportable 10/29/20 07:56 Microcytosis Not Reportable 10/29/20 07:56 Macrocytosis Not Reportable 10/29/20 07:56 Spherocytes Not Reportable 10/29/20 07:56 Pappenheimer Bodies Not Reportable 10/29/20 07:56 Sickle Cells Not Reportable 10/29/20 07:56 Target Cells Few 10/29/20 07:56 Tear Drop Cells Not Reportable 10/29/20 07:56 Ovalocytes Not Reportable 10/29/20 07:56 Stomatocytes Few 10/14/20 04:00 Helmet Cells Not Reportable 10/29/20 07:56 [place] Bodies Not Reportable 10/29/20 07:56 [place] Rings Not Reportable 10/29/20 07:56 Antoine Cells Not Reportable 10/29/20 07:56 Bite Cells Not Reportable 10/29/20 07:56 Crenated Cell Not Reportable 10/29/20 07:56 Elliptocytes Not Reportable 10/29/20 07:56 Acanthocytes (Spur) Not Reportable 10/29/20 07:56 Rouleaux Not Reportable 10/29/20 07:56 Hemoglobin C Crystals Not Reportable 10/29/20 07:56 Schistocytes Not Reportable 10/29/20 07:56 Malaria parasites Not Reportable 10/29/20 07:56 Sickle Cell Solubility See scanned result 10/04/20 Unknown Hemoglobin A See scanned result 10/04/20 Unknown Hemoglobin A2 See scanned result 10/04/20 Unknown Hemoglobin A2 Prime See scanned result 10/04/20 Unknown Hemoglobin C See scanned result 10/04/20 Unknown Hemoglobin D See scanned result 10/04/20 Unknown Hemoglobin E See scanned result 10/04/20 Unknown Hgb F Diffential Stain See scanned result 10/04/20 Unknown Hemoglobin F Quant See scanned result 10/04/20 Unknown Hemoglobin G See scanned result 10/04/20 Unknown Hemoglobin S See scanned result 10/04/20 Unknown Hemoglobin [place] See scanned result 10/04/20 Unknown Hemoglobin [place] See scanned result 10/04/20 Unknown Hemoglobin Analilia See scanned result 10/04/20 Unknown Variant Hemoglobin See scanned result 10/04/20 Unknown Abnorm Hgb IEF Confirm See scanned result 10/04/20 Unknown Hemoglobin Interpret See scanned result 10/04/20 Unknown Hemoglobinopathy Note See scanned result 10/04/20 Unknown Sharad Bodies Not Reportable 10/29/20 07:56 Hem Pathologist Commnt No 10/29/20 07:56 PT 13.6 Sec. (12.2-14.9) 10/21/20 13:54 INR 1.06 (0.87-1.13) 10/21/20 13:54 APTT 31.6 Sec. (24.2-36.6) 10/03/20 00:40 Fibrinogen 336 mg/dl (211-480) 10/04/20 10:00 D-Dimer > 59207 ng/mlDDU (0-234) H 10/04/20 10:00 ABG pH 7.459 pH Units (7.350-7.450) H 10/26/20 10:30 POC ABG pCO2 20.7 mmHg (32.0-48.0) L 10/13/20 07:18 ABG pCO2 32.4 mm Hg 10/26/20 10:30 POC ABG pO2 137.9 mmHg (83-108) H 10/13/20 07:18 ABG pO2 112.2 mm Hg (80.0-90.0) H 10/26/20 10:30 POC ABG HCO3 14.8 10/13/20 07:18 ABG HCO3 22.5 mmol/L (20.0-26.0) 10/26/20 10:30 ABG O2 Saturation 98.2 % (95.0-99.0) 10/26/20 10:30 ABG O2 Content 18.5 (0.0-44) 10/26/20 10:30 POC ABG Base Excess -6.9 10/13/20 07:18 ABG Base Excess -0.6 mmol/L (-2.0-3.0) 10/26/20 10:30 ABG Hemoglobin 13.5 gm/dl (12.0-16.0) 10/26/20 10:30 ABG Oxyhemoglobin 98.3 (94-98) H 10/13/20 07:18 ABG Carboxyhemoglobin 1.3 % (0.0-5.0) 10/26/20 10:30 ABG Methemoglobin 0.5 % (0.0-1.5) 10/26/20 10:30 ABG Sodium 135.9 mmol/L (136.0-145.0) L 10/13/20 07:18 ABG Potassium 3.7 mmol/L (3.40-4.50) 10/13/20 07:18 ABG Chloride 111.0 mmol/L (98-107) H 10/13/20 07:18 ABG Glucose 109 mg/dL (65-95) H 10/13/20 07:18 VBG pH 6.949 (7.320-7.420) L* 10/02/20 Unknown Oxyhemoglobin 96.5 % (95.0-99.0) 10/26/20 10:30 Carboxyhemoglobin 0.3 (0.5-1.5) L 10/13/20 07:18 FiO2 25 % 10/26/20 10:30 Sodium 137 mmol/L (137-145) 11/04/20 05:00 Potassium 4.1 mmol/L (3.6-5.0) 11/04/20 05:00 Chloride 101.1 mmol/L (98-107) 11/04/20 05:00 Carbon Dioxide 25 mmol/L (22-30) 11/04/20 05:00 Anion Gap 15 mmol/L 11/04/20 05:00 BUN 14 mg/dL (7-17) 11/04/20 05:00 Creatinine 0.7 mg/dL (0.6-1.2) 11/04/20 05:00 Estimated GFR > 60 ml/min 11/04/20 05:00 BUN/Creatinine Ratio 20 % 11/04/20 05:00 Glucose 112 mg/dL (65-100) H 11/04/20 05:00 POC Glucose 98 mg/dL (70-105) 11/05/20 11:28 Lactic Acid 1.90 mmol/L (0.7-2.0) 10/04/20 22:00 Uric Acid 7.5 mg/dL (3.5-7.6) 10/02/20 13:05 Calcium 8.8 mg/dL (8.4-10.2) 11/04/20 05:00 Ionized Calcium 4.4 mg/dL (4.8-5.6) L 10/07/20 21:00 Phosphorus 4.70 mg/dL (2.5-4.5) H 10/29/20 07:56 Magnesium 2.10 mg/dL (1.7-2.3) 11/04/20 05:00 Total Bilirubin 0.50 mg/dL (0.1-1.2) 11/04/20 05:00 AST 90 units/L (5-40) H 11/04/20 05:00 ALT 36 units/L (7-56) 11/04/20 05:00 Alkaline Phosphatase 122 units/L (35-129) 11/04/20 05:00 Lactate Dehydrogenase 769 units/L (91-180) H 10/02/20 13:05 NT-Pro-B Natriuret Pep 2788 pg/mL (0-450) H 10/04/20 10:00 Total Protein 7.4 g/dL (6.3-8.2) 11/04/20 05:00 Albumin 3.8 g/dL (3.9-5) L 11/04/20 05:00 Albumin/Globulin Ratio 1.1 % 11/04/20 05:00 Procalcitonin 0.06 ng/mL (<0.15) 10/27/20 07:53 Arterial Blood Glucose 109 mg/dL (65-95) H 10/13/20 07:18 Arterial Blood Ionized Calcium 4.6 mg/dL (4.6-5.3) 10/13/20 07:18 Urine Color Yellow (Yellow) 10/11/20 13:26 Urine Turbidity Clear (Clear) 10/11/20 13:26 Urine pH 7.0 (5.0-7.0) 10/11/20 13:26 Ur Specific [place] 1.014 (1.003-1.030) 10/11/20 13:26 Urine Protein 100 mg/dl mg/dL (Negative) 10/11/20 13:26 Urine Glucose (UA) Neg mg/dL (Negative) 10/11/20 13:26 Urine Ketones Neg mg/dL (Negative) 10/11/20 13:26 Urine Blood Mod (Negative) 10/11/20 13:26 Urine Nitrite Neg (Negative) 10/11/20 13:26 Urine Bilirubin Neg (Negative) 10/11/20 13:26 Urine Urobilinogen < 2.0 mg/dL (<2.0) 10/11/20 13:26 Ur Leukocyte Esterase Sm (Negative) 10/11/20 13:26 Urine WBC (Auto) 24.0 /HPF (0.0-6.0) H 10/11/20 13:26 Urine RBC (Auto) 59.0 /HPF (0.0-6.0) 10/11/20 13:26 Urine Bacteria (Auto) 1+ /HPF (Negative) 10/11/20 13:26 Urine Mucus Few /HPF 10/11/20 13:26 Vancomycin Trough 12.6 ug/mL (5.0-20.0) 10/21/20 13:54 Random Vancomycin 10.7 ug/mL (0-40.0) 10/16/20 13:09 Phenytoin 5.7 ug/mL (10.0-20.0) L 10/13/20 07:00 C. difficile Tox (PCR) Positive (Negative) 10/16/20 10:22 Coronavirus (PCR) Negative (Negative) 10/08/20 14:15 Blood Type O POSITIVE 10/02/20 12:50 Antibody Screen Negative 10/02/20 12:50 Crossmatch See Detail 10/02/20 12:50 Microbiology: Microbiology 11/02/20 19:35 Peripheral/Venous Blood Culture - Preliminary NO GROWTH AFTER 48 HOURS 11/02/20 19:19 Peripheral/Venous Blood Culture - Preliminary NO GROWTH AFTER 48 HOURS 11/02/20 09:30 Tracheal Aspirate Sputum Culture - Preliminary - Diagnostic Impressions Diagnostic Impressions: Echocardiogram 10/03/20 13:42 Transthoracic Echocardiogram Indication: S/P Cardiac Arrest R/O Cardiomyopathy BP: 133/71 Conclusions *Global left ventricular systolic function is normal. *The estimated ejection fraction is 60-65%. *There is trace of mitral regurgitation. *The right 0heart chambers are both slightly dilated. *There is mild tricuspid regurgitation. *There is mild-moderate pulmonary hypertension. *The right ventricular systolic pressure is calculated at 44 mmHg. *The study quality is technically difficult. Findings Procedure Info: The study quality is technically difficult. The study is technically limited due to patient body habitus. The study was technically limited due to the patient's inability to lay in the left lateral decubitus position. Left Ventricle: The left ventricular chamber size is normal. There is no left ventricular hypertrophy. Global left ventricular systolic function is normal. The estimated ejection fraction is 60-65%. Left Atrium: The left atrial chamber size is normal. Right Ventricle: The right ventricle is slightly dilated. Right Atrium: The right atrium is mildly dilated. Aortic Valve: The aortic valve leaflets are mildly thickened. There is no evidence of aortic regurgitation. There is no evidence of aortic stenosis. Mitral Valve: The mitral valve leaflets are mildly thickened. There is trace of mitral regurgitation. There is no evidence of mitral stenosis. Tricuspid Valve: There is mild tricuspid regurgitation. The right ventricular systolic pressure is calculated at 44 mmHg. There is evidence of mild pulmonary hypertension. Pulmonic Valve: There is trace pulmonic regurgitation. Pericardium: There is no pericardial effusion. Aorta: There is no dilatation of the ascending aorta. There is no dilatation of the aortic root. Venous: The inferior vena cava is dilated. Measurements Chambers 2D Name Value Normal Range IVSd (2D) 1 cm (0.6 - 1.1) LVPWd (2D) 1.01 cm (0.6 - 1.1) LVIDd (2D) 4.58 cm (3.7 - 5.6) LVIDs (2D) 3.17 cm (2 - 3.8) LV FS (2D) 30.93 % - EF Teichholz (2D) 58.66 % - Ao root diameter (2D) 2.94 cm (2 - 3.7) Volumes/Mass Name Value Normal Range LA ESV SP 4CH (A/L) 72.82 ml - LA ESV SP 2CH (A/L) 66.86 ml - LA ESV BP (A/L) 74.49 ml - LA ESV SP 4CH (MOD) 71.03 ml - LA ESV SP 2CH (MOD) 64.3 ml - LV EDV SP 4CH (MOD) 98.82 ml - LV ESV SP 4CH (MOD) 24.8 ml - EF SP 4CH (MOD) 74.9 % - LV EDV SP 2CH (MOD) 86.1 ml - LV ESV SP 2CH (MOD) 36.93 ml - EF SP 2CH (MOD) 57.11 % - LV EDV BP 94.4 ml - LV ESV BP 32.66 ml - BP EF (MOD) 65.4 % - Diastolic/Systolic Function Name Value Normal Range MV E-wave Vmax 1.04 m/sec - MV deceleration time 160.46 msec - MV A-wave Vmax 0.92 m/sec - MV E:A ratio 1.14 ratio - Aortic Valve Name Value Normal Range AV Vmax 2.12 m/sec - AV VTI 22.37 cm - AV peak gradient 17.95 mmHg - AV mean gradient 7.29 mmHg - LVOT diameter 2.01 cm - LVOT Vmax 1.8 m/sec - LVOT VTI 27.17 cm - LVOT peak gradient 12.91 mmHg - LVOT mean gradient 6.83 mmHg - SV LVOT 86.42 ml - ANITA (continuity Vmax) 2.7 cm2 - ANITA (continuity VTI) 3.86 cm2 - Ascending Ao 3.18 cm - Tricuspid Valve Name Value Normal Range TV E-wave Vmax 0.88 m/sec - TR Vmax 3.01 m/sec - TR peak gradient 36.27 mmHg - RAP 8 mmHg - RVSP 44 mmHg - IVC diameter 2.65 cm (1.2 - 2.3) Pulmonic Valve/Qp:Qs Name Value Normal Range PV Vmax 1.22 m/sec - PV peak gradient 5.91 mmHg - RVOT Vmax 0.87 m/sec - RVOT VTI 13.32 cm - RVOT peak gradient 3 mmHg - PV acceleration time 110.37 msec - [place]/IV: Voiding Method External Female Catheter IV Catheter Type [Right Foot] INT / Saline Lock IV Catheter Type [Left Forearm Peripheral IV ] IV Catheter Type [Left Wrist] INT / Saline Lock IV Catheter Type [Right Hand] INT / Saline Lock IV Catheter Type [Right INT / Saline Lock Antecubital] IV Catheter Type [Right Upper Mid-line arm] IV Catheter Type [Left Triple Lumen Cath Internal Jugular] IV Catheter Type [Left Hand] Peripheral IV IV Catheter Type [Left Peripheral IV Antecubital] Active Medications - Current Medications Current Medications: Generic Name Dose Route Start Last Admin Trade Name Freq PRN Reason Stop Dose Admin Acetaminophen 650 mg 10/05/20 16:34 11/04/20 12:47 Acetaminophen 325 Mg/10.15 Ml Oral Liqd Unit Dose FEEDTUBE 650 mg Q6H PRN Administration Non Cardiac Pain or Temp>100.5 Albuterol 2.5 mg 11/05/20 13:03 Albuterol 2.5 Mg/3 Ml Nebu IH Q4HRT PRN Shortness Of Breath Lipase/Protease/Amylase 1 each 10/05/20 11:09 Lipase 10,500/Protease 25,000/Amylase 43,750 (Units) Dr Barakat FEEDTUBE PRN PRN For Clogged Feeding Tube Enoxaparin Sodium 40 mg 10/22/20 10:00 11/05/20 10:59 Enoxaparin 40 Mg/0.4 Ml Inj SUB-Q 40 mg DAILY ERINN Administration Protocol Famotidine 20 mg 10/07/20 10:00 11/05/20 10:59 Famotidine 20 Mg Tab PO 20 mg BID ERINN Administration Furosemide 40 mg 10/17/20 10:00 11/05/20 10:59 Furosemide 40 Mg Tab PO 40 mg QDAY ERINN Administration Hydralazine HCl 20 mg 10/07/20 11:49 10/17/20 07:20 Hydralazine 20 Mg/1 Ml Inj IV 20 mg Q6H PRN Administration SBP >170 Hydralazine HCl 50 mg 10/17/20 09:00 11/05/20 14:17 Hydralazine 25 Mg Tab PO Not Given Q8HR ERINN Dextrose 1,000 mls @ 75 mls/hr 10/13/20 11:00 11/04/20 12:47 D10w IV 75 mls/hr DIRECT ERINN Administration Labetalol HCl 300 mg 10/17/20 09:00 11/05/20 14:15 Labetalol 100 Mg Tab PO 300 mg TID ERINN Administration Simple Syrup 15 ml 10/05/20 11:09 Simple Syrup 15 Ml FEEDTUBE PRN PRN Hypoglycemia Simple Syrup 30 ml 10/05/20 11:09 Simple Syrup 15 Ml FEEDTUBE PRN PRN Hypoglycemia Sodium Bicarbonate 325 mg 10/05/20 11:09 Sodium Bicarbonate 325 Mg Tab FEEDTUBE PRN PRN For Clogged Feeding Tube Sodium Bicarbonate 1,300 mg 10/13/20 14:00 11/05/20 14:15 Sodium Bicarbonate 650 Mg Tab PO 1,300 mg TID ERINN Administration Topiramate 50 mg 10/05/20 11:00 11/05/20 10:59 Topiramate Tab 25 Mg Tab PO 50 mg Q12HR ERINN Administration Nutrition/Malnutrition Assess - Dietary Evaluation Nutrition/Malnutrition Findings: Nutrition Notes Start: 10/04/20 11:13 Freq: Status: Active Protocol: Document 11/05/20 13:18 CW (Rec: 11/05/20 13:29 CW [id number]) Co-Sign 11/05/20 13:18 MK Nutrition Notes Initial or Follow up Reassessment Current Diagnosis Acute Kidney Injury, Respiratory Failure Other Pertinent Diagnosis Cardiac arrest, s/p c-sectuion and supracervial hysterectomy Current Diet Jevity 1.2 at 60 ml/hr Labs/Tests 11/04 BG 112 Pertinent Medications lasix D10w at 75ml/hr Height 5 ft 8 in Weight 106.8 kg [place] Body Weight (kg) 63.63 BMI 35.8 Weight change and time frame Wt change noted, pt on lasix Weight Status Morbidly Obese Subjective/Other Information FU for TF tolerance, labs. Pt remains on t-piece with TF running at goal and D10w infusing. Per chart, pending POC. Percent of energy/protein needs met: 100%/100% Burn Absent Trauma Absent GI Symptoms None Food Allergy Yes Current % PO Negligible Minimum of two criteria No Fluid Accumulation Mild (non-severe) #1 Nutrition Diagnosis Inadequate oral intake Diagnosis Progress(for reassessment Continues documentation) Is patient on ventilator? No Is Patient Ambulatory and/or Out of Bed No REE-([place]-confined to bed) 2193.588 Kcal/Kg value to use for calculation 16 Approximate Energy Requirements Using 1709 kcal/Kg Calculation Used for Recommendations Kcal/kg Additional Notes Protein needs are 68-84g (0.8- 1g/kg AdjBW 85kg) Fluid needs are 1ml/kcal Nutrition Intervention Change Diet Order: Continue Nutrition Support: Jevity 1.2 at 60ml/hr. Flush 100ml q4h. Kcal 1,782 Protein (gm) 87 Fluid (mL) 1,259 Goal #1 TF tolerance Goal #2 Meet at least 75% of energy and protein needs Anticipated Discharge Needs: Unable to determine at this time Follow-Up By: 11/10/20 Additional Comments FU for TF tolerance, POC
[2020-11-05] MEDS: ALBUTEROL 2.5 MG/3 ML NEBU IH PRN (15:39)
[2020-11-05] MEDS: DEXTROSE 10% IN WATER 1,000 ML IV SCH (16:39)
--- NOTE | 2020-11-05 16:44 | Progress Note ---
Hospitalist Physical - Constitutional Vitals: Temp Pulse Resp BP Pulse Ox 99.2 F 101 H 19 99/52 100 11/05/20 16:00 11/05/20 16:00 11/05/20 16:00 11/05/20 16:00 11/05/20 16:00 General appearance: Present: no acute distress, well-nourished, obese, other (On T-piece 5 L oxygen, noncommunicative) HEART Score - HEART Score Age: < 45 Risk factors: 1-2 risk factors - Critical Actions Critical Actions: >7 pts:50-65% risk of adverse cardiac event. Early invasive measures Results - Labs CBC & Chem 7: 11/04/20 05:00 11/04/20 05:00 Labs: Laboratory Last Values WBC 13.8 K/mm3 (4.5-11.0) H 11/04/20 05:00 RBC 3.72 M/mm3 (3.65-5.03) 11/04/20 05:00 Hgb 10.6 gm/dl (10.1-14.3) 11/04/20 05:00 Hgb Comment See scanned result 10/04/20 Unknown Hct 31.8 % (30.3-42.9) 11/04/20 05:00 MCV 86 fl (79-97) 11/04/20 05:00 MCH 28 pg (28-32) 11/04/20 05:00 MCHC 33 % (30-34) 11/04/20 05:00 RDW 16.6 % (13.2-15.2) H 11/04/20 05:00 Plt Count 293 K/mm3 (140-440) 11/04/20 05:00 Lymph % (Auto) 11.8 % (13.4-35.0) L 11/04/20 05:00 [place] % (Auto) 11.0 % (0.0-7.3) H 11/04/20 05:00 Eos % (Auto) 2.0 % (0.0-4.3) 11/04/20 05:00 Baso % (Auto) 0.1 % (0.0-1.8) 11/04/20 05:00 Lymph # (Auto) 1.6 K/mm3 (1.2-5.4) 11/04/20 05:00 [place] # (Auto) 1.5 K/mm3 (0.0-0.8) H 11/04/20 05:00 Eos # (Auto) 0.3 K/mm3 (0.0-0.4) 11/04/20 05:00 Baso # (Auto) 0.0 K/mm3 (0.0-0.1) 11/04/20 05:00 Add Manual Diff Complete 10/29/20 07:56 Total Counted 100 10/29/20 07:56 Seg Neutrophils % 75.1 % (40.0-70.0) H 11/04/20 05:00 Seg Neuts % (Manual) 80.0 % (40.0-70.0) H 10/29/20 07:56 Band Neutrophils % 2.0 % 10/15/20 05:50 Lymphocytes % (Manual) 15.0 % (13.4-35.0) 10/29/20 07:56 Reactive Lymphs % (Man) 1.0 % 10/02/20 12:18 Monocytes % (Manual) 4.0 % (0.0-7.3) 10/29/20 07:56 Eosinophils % (Manual) 1.0 % (0.0-4.3) 10/29/20 07:56 Myelocytes % 2.0 % 10/02/20 13:05 Metamyelocytes % 1.0 % 10/14/20 04:00 Nucleated RBC % Not Reportable 10/29/20 07:56 Seg Neutrophils # 10.4 K/mm3 (1.8-7.7) H 11/04/20 05:00 Seg Neutrophils # Man 10.9 K/mm3 (1.8-7.7) H 10/29/20 07:56 Band Neutrophils # 0.0 K/mm3 10/29/20 07:56 Lymphocytes # (Manual) 2.0 K/mm3 (1.2-5.4) 10/29/20 07:56 Abs React Lymphs (Man) 0.0 K/mm3 10/29/20 07:56 Monocytes # (Manual) 0.5 K/mm3 (0.0-0.8) 10/29/20 07:56 Eosinophils # (Manual) 0.1 K/mm3 (0.0-0.4) 10/29/20 07:56 Basophils # (Manual) 0.0 K/mm3 (0.0-0.1) 10/29/20 07:56 Metamyelocytes # 0.0 K/mm3 10/29/20 07:56 Myelocytes # 0.0 K/mm3 10/29/20 07:56 Promyelocytes # 0.0 K/mm3 10/29/20 07:56 Blast Cells # 0.0 K/mm3 10/29/20 07:56 WBC Morphology Not Reportable 10/29/20 07:56 Hypersegmented Neuts Not Reportable 10/29/20 07:56 Hyposegmented Neuts Not Reportable 10/29/20 07:56 Hypogranular Neuts Not Reportable 10/29/20 07:56 Smudge Cells Not Reportable 10/29/20 07:56 Toxic Granulation Not Reportable 10/29/20 07:56 Toxic Vacuolation Not Reportable 10/29/20 07:56 Dohle Bodies Not Reportable 10/29/20 07:56 Pelger-Huet Anomaly Not Reportable 10/29/20 07:56 Ester Rods Not Reportable 10/29/20 07:56 Platelet Estimate Consistent w auto 10/29/20 07:56 Clumped Platelets Not Reportable 10/29/20 07:56 Plt Clumps, EDTA Not Reportable 10/29/20 07:56 Large Platelets Few 10/29/20 07:56 Giant Platelets Not Reportable 10/29/20 07:56 Platelet Satelliting Not Reportable 10/29/20 07:56 Plt Morphology Comment Not Reportable 10/29/20 07:56 RBC Morphology Not Reportable 10/29/20 07:56 Dimorphic RBCs Not Reportable 10/29/20 07:56 Polychromasia Rare 10/29/20 07:56 Hypochromasia Few 10/29/20 07:56 Poikilocytosis Not Reportable 10/29/20 07:56 Anisocytosis Not Reportable 10/29/20 07:56 Microcytosis Not Reportable 10/29/20 07:56 Macrocytosis Not Reportable 10/29/20 07:56 Spherocytes Not Reportable 10/29/20 07:56 Pappenheimer Bodies Not Reportable 10/29/20 07:56 Sickle Cells Not Reportable 10/29/20 07:56 Target Cells Few 10/29/20 07:56 Tear Drop Cells Not Reportable 10/29/20 07:56 Ovalocytes Not Reportable 10/29/20 07:56 Stomatocytes Few 10/14/20 04:00 Helmet Cells Not Reportable 10/29/20 07:56 Burk-Molena Bodies Not Reportable 10/29/20 07:56 [place] Rings Not Reportable 10/29/20 07:56 [place] Cells Not Reportable 10/29/20 07:56 Bite Cells Not Reportable 10/29/20 07:56 Crenated Cell Not Reportable 10/29/20 07:56 Elliptocytes Not Reportable 10/29/20 07:56 Acanthocytes (Spur) Not Reportable 10/29/20 07:56 Rouleaux Not Reportable 10/29/20 07:56 Hemoglobin C Crystals Not Reportable 10/29/20 07:56 Schistocytes Not Reportable 10/29/20 07:56 Malaria parasites Not Reportable 10/29/20 07:56 Sickle Cell Solubility See scanned result 10/04/20 Unknown Hemoglobin A See scanned result 10/04/20 Unknown Hemoglobin A2 See scanned result 10/04/20 Unknown Hemoglobin A2 Prime See scanned result 10/04/20 Unknown Hemoglobin C See scanned result 10/04/20 Unknown Hemoglobin D See scanned result 10/04/20 Unknown Hemoglobin E See scanned result 10/04/20 Unknown Hgb F Diffential Stain See scanned result 10/04/20 Unknown Hemoglobin F Quant See scanned result 10/04/20 Unknown Hemoglobin G See scanned result 10/04/20 Unknown Hemoglobin S See scanned result 10/04/20 Unknown Hemoglobin [place] See scanned result 10/04/20 Unknown Hemoglobin [place] See scanned result 10/04/20 Unknown Hemoglobin [place] See scanned result 10/04/20 Unknown Variant Hemoglobin See scanned result 10/04/20 Unknown Abnorm Hgb IEF Confirm See scanned result 10/04/20 Unknown Hemoglobin Interpret See scanned result 10/04/20 Unknown Hemoglobinopathy Note See scanned result 10/04/20 Unknown Sharad Bodies Not Reportable 10/29/20 07:56 Hem Pathologist Commnt No 10/29/20 07:56 PT 13.6 Sec. (12.2-14.9) 10/21/20 13:54 INR 1.06 (0.87-1.13) 10/21/20 13:54 APTT 31.6 Sec. (24.2-36.6) 10/03/20 00:40 Fibrinogen 336 mg/dl (211-480) 10/04/20 10:00 D-Dimer > 53531 ng/mlDDU (0-234) H 10/04/20 10:00 ABG pH 7.459 pH Units (7.350-7.450) H 10/26/20 10:30 POC ABG pCO2 20.7 mmHg (32.0-48.0) L 10/13/20 07:18 ABG pCO2 32.4 mm Hg 10/26/20 10:30 POC ABG pO2 137.9 mmHg (83-108) H 10/13/20 07:18 ABG pO2 112.2 mm Hg (80.0-90.0) H 10/26/20 10:30 POC ABG HCO3 14.8 10/13/20 07:18 ABG HCO3 22.5 mmol/L (20.0-26.0) 10/26/20 10:30 ABG O2 Saturation 98.2 % (95.0-99.0) 10/26/20 10:30 ABG O2 Content 18.5 (0.0-44) 10/26/20 10:30 POC ABG Base Excess -6.9 10/13/20 07:18 ABG Base Excess -0.6 mmol/L (-2.0-3.0) 10/26/20 10:30 ABG Hemoglobin 13.5 gm/dl (12.0-16.0) 10/26/20 10:30 ABG Oxyhemoglobin 98.3 (94-98) H 10/13/20 07:18 ABG Carboxyhemoglobin 1.3 % (0.0-5.0) 10/26/20 10:30 ABG Methemoglobin 0.5 % (0.0-1.5) 10/26/20 10:30 ABG Sodium 135.9 mmol/L (136.0-145.0) L 10/13/20 07:18 ABG Potassium 3.7 mmol/L (3.40-4.50) 10/13/20 07:18 ABG Chloride 111.0 mmol/L (98-107) H 10/13/20 07:18 ABG Glucose 109 mg/dL (65-95) H 10/13/20 07:18 VBG pH 6.949 (7.320-7.420) L* 10/02/20 Unknown Oxyhemoglobin 96.5 % (95.0-99.0) 10/26/20 10:30 Carboxyhemoglobin 0.3 (0.5-1.5) L 10/13/20 07:18 FiO2 25 % 10/26/20 10:30 Sodium 137 mmol/L (137-145) 11/04/20 05:00 Potassium 4.1 mmol/L (3.6-5.0) 11/04/20 05:00 Chloride 101.1 mmol/L (98-107) 11/04/20 05:00 Carbon Dioxide 25 mmol/L (22-30) 11/04/20 05:00 Anion Gap 15 mmol/L 11/04/20 05:00 BUN 14 mg/dL (7-17) 11/04/20 05:00 Creatinine 0.7 mg/dL (0.6-1.2) 11/04/20 05:00 Estimated GFR > 60 ml/min 11/04/20 05:00 BUN/Creatinine Ratio 20 % 11/04/20 05:00 Glucose 112 mg/dL (65-100) H 11/04/20 05:00 POC Glucose 94 mg/dL (70-105) 11/05/20 16:34 Lactic Acid 1.90 mmol/L (0.7-2.0) 10/04/20 22:00 Uric Acid 7.5 mg/dL (3.5-7.6) 10/02/20 13:05 Calcium 8.8 mg/dL (8.4-10.2) 11/04/20 05:00 Ionized Calcium 4.4 mg/dL (4.8-5.6) L 10/07/20 21:00 Phosphorus 4.70 mg/dL (2.5-4.5) H 10/29/20 07:56 Magnesium 2.10 mg/dL (1.7-2.3) 11/04/20 05:00 Total Bilirubin 0.50 mg/dL (0.1-1.2) 11/04/20 05:00 AST 90 units/L (5-40) H 11/04/20 05:00 ALT 36 units/L (7-56) 11/04/20 05:00 Alkaline Phosphatase 122 units/L (35-129) 11/04/20 05:00 Lactate Dehydrogenase 769 units/L (91-180) H 10/02/20 13:05 NT-Pro-B Natriuret Pep 2788 pg/mL (0-450) H 10/04/20 10:00 Total Protein 7.4 g/dL (6.3-8.2) 11/04/20 05:00 Albumin 3.8 g/dL (3.9-5) L 11/04/20 05:00 Albumin/Globulin Ratio 1.1 % 11/04/20 05:00 Procalcitonin 0.06 ng/mL (<0.15) 10/27/20 07:53 Arterial Blood Glucose 109 mg/dL (65-95) H 10/13/20 07:18 Arterial Blood Ionized Calcium 4.6 mg/dL (4.6-5.3) 10/13/20 07:18 Urine Color Yellow (Yellow) 10/11/20 13:26 Urine Turbidity Clear (Clear) 10/11/20 13:26 Urine pH 7.0 (5.0-7.0) 10/11/20 13:26 Ur Specific [place] 1.014 (1.003-1.030) 10/11/20 13:26 Urine Protein 100 mg/dl mg/dL (Negative) 10/11/20 13:26 Urine Glucose (UA) Neg mg/dL (Negative) 10/11/20 13:26 Urine Ketones Neg mg/dL (Negative) 10/11/20 13:26 Urine Blood Mod (Negative) 10/11/20 13:26 Urine Nitrite Neg (Negative) 10/11/20 13:26 Urine Bilirubin Neg (Negative) 10/11/20 13:26 Urine Urobilinogen < 2.0 mg/dL (<2.0) 10/11/20 13:26 Ur Leukocyte Esterase Sm (Negative) 10/11/20 13:26 Urine WBC (Auto) 24.0 /HPF (0.0-6.0) H 10/11/20 13:26 Urine RBC (Auto) 59.0 /HPF (0.0-6.0) 10/11/20 13:26 Urine Bacteria (Auto) 1+ /HPF (Negative) 10/11/20 13:26 Urine Mucus Few /HPF 10/11/20 13:26 Vancomycin Trough 12.6 ug/mL (5.0-20.0) 10/21/20 13:54 Random Vancomycin 10.7 ug/mL (0-40.0) 10/16/20 13:09 Phenytoin 5.7 ug/mL (10.0-20.0) L 10/13/20 07:00 C. difficile Tox (PCR) Positive (Negative) 10/16/20 10:22 Coronavirus (PCR) Negative (Negative) 10/08/20 14:15 Blood Type O POSITIVE 10/02/20 12:50 Antibody Screen Negative 10/02/20 12:50 Crossmatch See Detail 10/02/20 12:50 Microbiology: Microbiology 11/02/20 09:30 Tracheal Aspirate Sputum Culture - Preliminary 11/02/20 19:35 Peripheral/Venous Blood Culture - Preliminary NO GROWTH AFTER 48 HOURS 11/02/20 19:19 Peripheral/Venous Blood Culture - Preliminary NO GROWTH AFTER 48 HOURS - Diagnostic Impressions Diagnostic Impressions: Echocardiogram 10/03/20 13:42 Transthoracic Echocardiogram Indication: S/P Cardiac Arrest R/O Cardiomyopathy BP: 133/71 Conclusions *Global left ventricular systolic function is normal. *The estimated ejection fraction is 60-65%. *There is trace of mitral regurgitation. *The right 0heart chambers are both slightly dilated. *There is mild tricuspid regurgitation. *There is mild-moderate pulmonary hypertension. *The right ventricular systolic pressure is calculated at 44 mmHg. *The study quality is technically difficult. Findings Procedure Info: The study quality is technically difficult. The study is technically limited due to patient body habitus. The study was technically limited due to the patient's inability to lay in the left lateral decubitus position. Left Ventricle: The left ventricular chamber size is normal. There is no left ventricular hypertrophy. Global left ventricular systolic function is normal. The estimated ejection fraction is 60-65%. Left Atrium: The left atrial chamber size is normal. Right Ventricle: The right ventricle is slightly dilated. Right Atrium: The right atrium is mildly dilated. Aortic Valve: The aortic valve leaflets are mildly thickened. There is no evidence of aortic regurgitation. There is no evidence of aortic stenosis. Mitral Valve: The mitral valve leaflets are mildly thickened. There is trace of mitral regurgitation. There is no evidence of mitral stenosis. Tricuspid Valve: There is mild tricuspid regurgitation. The right ventricular systolic pressure is calculated at 44 mmHg. There is evidence of mild pulmonary hypertension. Pulmonic Valve: There is trace pulmonic regurgitation. Pericardium: There is no pericardial effusion. Aorta: There is no dilatation of the ascending aorta. There is no dilatation of the aortic root. Venous: The inferior vena cava is dilated. Measurements Chambers 2D Name Value Normal Range IVSd (2D) 1 cm (0.6 - 1.1) LVPWd (2D) 1.01 cm (0.6 - 1.1) LVIDd (2D) 4.58 cm (3.7 - 5.6) LVIDs (2D) 3.17 cm (2 - 3.8) LV FS (2D) 30.93 % - EF Teichholz (2D) 58.66 % - Ao root diameter (2D) 2.94 cm (2 - 3.7) Volumes/Mass Name Value Normal Range LA ESV SP 4CH (A/L) 72.82 ml - LA ESV SP 2CH (A/L) 66.86 ml - LA ESV BP (A/L) 74.49 ml - LA ESV SP 4CH (MOD) 71.03 ml - LA ESV SP 2CH (MOD) 64.3 ml - LV EDV SP 4CH (MOD) 98.82 ml - LV ESV SP 4CH (MOD) 24.8 ml - EF SP 4CH (MOD) 74.9 % - LV EDV SP 2CH (MOD) 86.1 ml - LV ESV SP 2CH (MOD) 36.93 ml - EF SP 2CH (MOD) 57.11 % - LV EDV BP 94.4 ml - LV ESV BP 32.66 ml - BP EF (MOD) 65.4 % - Diastolic/Systolic Function Name Value Normal Range MV E-wave Vmax 1.04 m/sec - MV deceleration time 160.46 msec - MV A-wave Vmax 0.92 m/sec - MV E:A ratio 1.14 ratio - Aortic Valve Name Value Normal Range AV Vmax 2.12 m/sec - AV VTI 22.37 cm - AV peak gradient 17.95 mmHg - AV mean gradient 7.29 mmHg - LVOT diameter 2.01 cm - LVOT Vmax 1.8 m/sec - LVOT VTI 27.17 cm - LVOT peak gradient 12.91 mmHg - LVOT mean gradient 6.83 mmHg - SV LVOT 86.42 ml - ANITA (continuity Vmax) 2.7 cm2 - ANITA (continuity VTI) 3.86 cm2 - Ascending Ao 3.18 cm - Tricuspid Valve Name Value Normal Range TV E-wave Vmax 0.88 m/sec - TR Vmax 3.01 m/sec - TR peak gradient 36.27 mmHg - RAP 8 mmHg - RVSP 44 mmHg - IVC diameter 2.65 cm (1.2 - 2.3) Pulmonic Valve/Qp:Qs Name Value Normal Range PV Vmax 1.22 m/sec - PV peak gradient 5.91 mmHg - RVOT Vmax 0.87 m/sec - RVOT VTI 13.32 cm - RVOT peak gradient 3 mmHg - PV acceleration time 110.37 msec - [place]/IV: Voiding Method External Female Catheter IV Catheter Type [Right Foot] INT / Saline Lock IV Catheter Type [Left Forearm Peripheral IV ] IV Catheter Type [Left Wrist] INT / Saline Lock IV Catheter Type [Right Hand] INT / Saline Lock IV Catheter Type [Right INT / Saline Lock Antecubital] IV Catheter Type [Right Upper Mid-line arm] IV Catheter Type [Left Triple Lumen Cath Internal Jugular] IV Catheter Type [Left Hand] Peripheral IV IV Catheter Type [Left Peripheral IV Antecubital] Active Medications - Current Medications Current Medications: Generic Name Dose Route Start Last Admin Trade Name Freq PRN Reason Stop Dose Admin Acetaminophen 650 mg 10/05/20 16:34 11/04/20 12:47 Acetaminophen 325 Mg/10.15 Ml Oral Liqd Unit Dose FEEDTUBE 650 mg Q6H PRN Administration Non Cardiac Pain or Temp>100.5 Albuterol 2.5 mg 11/05/20 13:03 11/05/20 15:39 Albuterol 2.5 Mg/3 Ml Nebu IH 2.5 mg Q4HRT PRN Administration Shortness Of Breath Lipase/Protease/Amylase 1 each 10/05/20 11:09 Lipase 10,500/Protease 25,000/Amylase 43,750 (Units) Dr Barakat FEEDTUBE PRN PRN For Clogged Feeding Tube Enoxaparin Sodium 40 mg 10/22/20 10:00 11/05/20 10:59 Enoxaparin 40 Mg/0.4 Ml Inj SUB-Q 40 mg DAILY ERINN Administration Protocol Famotidine 20 mg 10/07/20 10:00 11/05/20 10:59 Famotidine 20 Mg Tab PO 20 mg BID ERINN Administration Furosemide 40 mg 10/17/20 10:00 11/05/20 10:59 Furosemide 40 Mg Tab PO 40 mg QDAY ERINN Administration Hydralazine HCl 20 mg 10/07/20 11:49 10/17/20 07:20 Hydralazine 20 Mg/1 Ml Inj IV 20 mg Q6H PRN Administration SBP >170 Hydralazine HCl 50 mg 10/17/20 09:00 11/05/20 14:17 Hydralazine 25 Mg Tab PO Not Given Q8HR ERINN Dextrose 1,000 mls @ 75 mls/hr 10/13/20 11:00 11/05/20 16:39 D10w IV 75 mls/hr DIRECT ERINN Administration Labetalol HCl 300 mg 10/17/20 09:00 11/05/20 14:15 Labetalol 100 Mg Tab PO 300 mg TID ERINN Administration Simple Syrup 15 ml 10/05/20 11:09 Simple Syrup 15 Ml FEEDTUBE PRN PRN Hypoglycemia Simple Syrup 30 ml 10/05/20 11:09 Simple Syrup 15 Ml FEEDTUBE PRN PRN Hypoglycemia Sodium Bicarbonate 325 mg 10/05/20 11:09 Sodium Bicarbonate 325 Mg Tab FEEDTUBE PRN PRN For Clogged Feeding Tube Sodium Bicarbonate 1,300 mg 10/13/20 14:00 11/05/20 14:15 Sodium Bicarbonate 650 Mg Tab PO 1,300 mg TID ERINN Administration Topiramate 50 mg 10/05/20 11:00 11/05/20 10:59 Topiramate Tab 25 Mg Tab PO 50 mg Q12HR ERINN Administration Nutrition/Malnutrition Assess - Dietary Evaluation Nutrition/Malnutrition Findings: Nutrition Notes Start: 10/04/20 1 1:13 Freq: Status: Active Protocol: Document 11/05/20 13:18 CW (Rec: 11/05/20 13:29 CW [id number]) Co-Sign 11/05/20 13:18 MK Nutrition Notes Initial or Follow up Reassessment Current Diagnosis Acute Kidney Injury, Respiratory Failure Other Pertinent Diagnosis Cardiac arrest, s/p c-sectuion and supracervial hysterectomy Current Diet Jevity 1.2 at 60 ml/hr Labs/Tests 11/04 BG 112 Pertinent Medications lasix D10w at 75ml/hr Height 5 ft 8 in Weight 106.8 kg [place] Body Weight (kg) 63.63 BMI 35.8 Weight Status Morbidly Obese Subjective/Other Information FU for TF tolerance, labs. Pt remains on T-piece with TF running at goal and D10w infusing. Per chart, pending POC. Percent of energy/protein needs met: 100%/100% Burn Absent Trauma Absent GI Symptoms None Food Allergy Yes Current % PO Negligible Minimum of two criteria No Fluid Accumulation Mild (non-severe) #1 Nutrition Diagnosis Inadequate oral intake Diagnosis Progress(for reassessment Continues documentation) Is patient on ventilator? No Is Patient Ambulatory and/or Out of Bed No REE-([place]-confined to bed) 2193.588 Kcal/Kg value to use for calculation 16 Approximate Energy Requirements Using 1709 kcal/Kg Calculation Used for Recommendations Kcal/kg Additional Notes Protein needs are 68-84g (0.8- 1g/kg AdjBW 85kg) Fluid needs are 1ml/kcal Nutrition Intervention Change Diet Order: Continue Nutrition Support: Jevity 1.2 at 60ml/hr. Flush 100ml q4h. Kcal 1,782 Protein (gm) 87 Fluid (mL) 1,259 Goal #1 TF tolerance Goal #2 Meet at least 75% of energy and protein needs Anticipated Discharge Needs: Unable to determine at this time Follow-Up By: 11/10/20 Additional Comments FU for TF tolerance, POC
--- NOTE | 2020-11-05 16:53 | Event Note ---
Date: 11/05/20 Nurse reported that patient's mother Ms. Pamela Holguin wanted update of the patient's condition, I called Ms. Pamela Holguin at [phone] Unable to reach her, left voice message encouraging her to call back if she has any questions or concerns regarding the patient. I informed patient's nurse of the above attempt to talk to patient's mother Ms. Santiago. I also tried to call patient's spouse Mr. Danilo Dimas at [phone] to update patient's condition, unable to reach, the mailbox is full unable to leave any message. Informed the patient's nurse Huong of my attempt to call the family.
[2020-11-05] MEDS: ACETAMINOPHEN 325 MG/10.15 ML ORAL LIQD UNIT DOSE FEEDTUBE PRN (21:30)
[2020-11-06] MEDS: DEXTROSE 10% IN WATER 1,000 ML IV SCH ×2 (06:26→20:29)
[2020-11-06] MEDS: hydrALAZINE 25 MG TAB PO SCH ×3 (06:27→21:32)
[2020-11-06] MEDS: ALBUTEROL 2.5 MG/3 ML NEBU IH PRN ×2 (08:14→13:04)
--- NOTE | 2020-11-06 08:52 | Progress Note ---
Assessment and Plan Assessment and plan: 30 y/o female patient with Eclampsia/help syndrome, s/p emergent section with DIC, hemorrhage, supracervical abdominal hysterectomy, acute respiratory failure , tracheostomy on T-piece with morbid obesity, s/p cardiac arrest 12/08/2019 status post CPR per ACLS, acute hypoxic brain injury Acute kidney injury improved, severe shock requiring pressors, DIC septic shock improved, history of C. difficile colitis on vancomycin. Tracheostomy on T-piece, continues to require 5 L of oxygen. COVID-19 negative C. difficile positive; Patient on contact isolation Completed treatment --Afebrile: Blood, urine, tracheal aspirate cultures New cultures negative to date Monitor off antibiotics Closely monitor --Acute hypoxic respiratory failure: Tracheostomy on T-piece , 5 L oxygen, saturating 100% Nebulizers, continue oxygen titrate O2 sats to more than 90% Pulmonary critical following --Sepsis; received antibiotics Continue to monitor off antibiotics ID following --Cardiac arrest; 10/07/2020 ,status post CPR --COVID-19 test negative; 10/08/2020 --C. difficile colitis test; positive; 10/16/2020 --Acute metabolic encephalopathy --Acute hypoxic brain injury; Supportive care, closely monitor --Acute kidney injury; vasomotor nephropathy Resolved, renal function within normal limits, closely monitor --Shock; monitor of pressors Blood pressures reasonable level --DIC; sepsis, septic shock, resolved --History of preeclampsia; / hemorrhage Status post hysterectomy --History of C. difficile colitis; completed oral vancomycin --DVT/SVT and right upper extremity Very poor prognosis, Consults recommendations noted and appreciated We will closely monitor the patient and adjust management as needed Plan of care reviewed with the patient's nurse. Brief history; 30 year old -Danish female CHE 10/25/20 at 36w5d who presents with seizures in triage on 10/02/20. Pt was not able to provide history but per pt's , she presented to the hospital to return a 24 hour urine specimen for analysis. She then suddenly reported that she did not feel good. She was taken to labor and delivery and shortly after arrival, she began seizing. During this time, a code met was called because the patient became hypoxic. She was then noted to be without a pulse. Chest compressions were started immediately, and the patient was emergently taken to the operating room for delivery of the fetus. Off note, This patient has had care at [facility] with comanagement by [facility] since 11 wks complicated by ADHD, morbid obesity, generalized anxiety disorder, panic attacks, chronic narcotic use, fibromyalgia, GERD, Irritable Bowel Syndrome, Migraines, h/o endometrial ablation and ovarian vein embolization, genital herpes, insomnia, LGA fetus, nausea and vomiting, polyhydramnios, quad screen positive for Down's Syndrome, and previous x 3. She is GBS negative. , Patient tracheostomy on ventilatory support, unable to wean, continue supportive care poor prognosis 11:30: Pt brought to L&D triage for evaluation of possible labor. Pt accompanied by her spouse. Pt spouse poor historian; unable to obtain history- allergies at this time. Pt taken from registration to triage area via WC. Pt unresponsive, actively seizing with snorous respirations. magnetic tape typewriter operator, Kassy, called and requesting assistance. 11:35: Multiple staff at bedside. Pt 02 sat 67% on nonrebreather, unable to read BP . Yifan Theodore CRNA, at bedside for intubation and assistance with IV insertion. INT attempt by multiple RNs unsuccessful at this time. 11:42: Pt being bagged by KORIN, 02% 79%. No pulse palpated, compressions on at this time; bharati young called and Dr. Newberry preparing OR for emergent c/s. 11:44: Continued compressions on stretcher while transporting pt to OR 1. Pt being bagged with jaw thrust manuever in place by KORIN Stringer student. 11:45: Arrival to OR 1. Dr. Newberry and Dr. Portillo present for emergent c/s. Code team arrived for continued care. patient revived and c/s done Patient has been bleeding from C/s site followed by supracervical hysterectomy for severe bleeding, Patient transfused multiple units of PRBC, Patient in DIC. Patient transferred to the ICU Hospital course; 10/03. Patient seen and examined at bedside this morning. Patient is nonresponsive and mechanically ventilated. On pressors. Labs reviewed-has leukocytosis, anemia, thrombocytopenia, ADOLPH and lactic acidosis. Started on IV antibiotics to cover possible sepsis secondary to DIC. Hematology oncology recommendations appreciated-needs additional cryoprecipitate and FFP. Monitor D-dimer, fibrinogen and frequent labs. Nephrology consulted for lactic acidosis and ADOLPH. 10/04. Remains mechanically ventilated. [place] antibiotics. Labs shows improved acidosis - lactic acid 3.5. Hb drop noted. Getting transfused 2 units PRBCs. Platelet count is ~40k. Continue to monitor labs closely. Critical care team on board. 10/05; xray reviewed, concerning for multifocal infilrate, likely underlying Pneumonia, will add ID consult to assist with management of this critically ill patient, start tube feed, closely monitor renal system 10/06: Resumed care, remains on mechanical ventilation. No active bleeding, H&H stable. Continue to monitor CBC and BMP. Continue IV antibiotic for underlying pneumonia. Follow critical care and ID recommendation. 10/07: Remains on mechanical ventilation. No active bleeding, H&H stable. Critical care following, wean off ventilation as tolerated. 10/08: Patient had another cardiac arrest last night. Remains on mechanical ventilation, update family. Continue supportive care -poor prognosis 10/09: Called patient mother and discussed about patient care and management. Answered all question to best of my knowledge and family satisfaction. Patient remains on mechanical ventilation, cardiac arrest x2 so far. Critically sick, poor prognosis 10/10: remains on mechanical ventilation. h/h stable, no active bleeding. monitor CBC/BMP 10/11: WBC trended up with diarrhea, started on vancomycin po. remains on MV, off pressor, tolerating TF 10/12: remains on MV, off pressor, tolerating TF. called family for update but unable to reach, could not leave message as it was full. cont supportive care, wean off vent as tolerated. 10/13/2020; patient is on mechanical ventilation, tolerating tube feeding. Patient has labored breathing. Neuro was consulted and recommend MRI. Patient is on Precedex. Rectal tube in place. 10/14/2020; patient is on mechanical ventilation, Precedex. Patient had fever and blood culture ordered. Patient is on IV vancomycin per ID recommendation. Neuro consulted and recommend MRI. Continue to monitor. Prognosis is guarded. 10/15/2020; patient is on mechanical ventilation, Precedex. Patient had fever and blood culture ordered. Patient is on IV vancomycin per ID recommendation. Neuro consulted and recommend MRI. Continue to monitor. Prognosis is guarded. 10/17: Remains with C.DIFF and Bactermia, Poor prognosis. No purposeful movement. MRI and EEG discussed with Intensvisit, Continue aggressive BP control. 10/18: Blood pressure better controlled MRI done 10/15 shows mild improvement in edema. We will continue to monitor mother was at bedside yesterday. Nursing documentation trach and PEG discussed with the mother including goals of care. She is still in denial about the gravity of her daughters her condition which is understandable considering her age. Continue aggressive management at this time. Await for bacteremia to clear by ID before placing PICC line. 10/19: Patient for possible PEG and Trach, ID following, repeat cultures remain negative. Poor prognosis 10/20: Pt noted to DVT and SVT in the RUE, Vascular consult and will also obtain Hematology for possible considering changing in Anticoagulation. CONTINUE TO MONITOR H/H and PLT. Family updated by Intensivit. Heparin gtt started. Will check CBC and BMP 10/21: Continue supporive care, Diarrhea now resolving, But still with persistent Fever, May need repeat CT/AP per ID, still with profused Encephalopathy 10/22: Continue supportive care, weaning, awaiting repeat Imaging. FOLLOW Fever curve. Enoxparin restarted 10/23: Continue supportive care, wean as tolerated. 10/24; Started on CPAP trial, discussed with pulmonary, still with diarrhea. 10/25: Patients seen and examined, no clinical changes, still with diarrhea. ?meaningful recovery. 10/26: Clinically unchanged, continue CPAP trial, Will discuss with Neurology about re-evaluation, ?Need for repeat CT head. ?PRESS considering initial elevated BP, now stable. 10/27; tracheostomy on vent, weaning trials, vital signs noted, poor prognosis 10/28; unable to wean, tracheostomy on vent. Sepsis. Continue current management. Consults and recommendations noted and appreciated 10/30/2020;Patient on T-piece 5 L of oxygen not in acute distress, noncommunicative 11/02/2020; patient on T-piece 5 L of oxygen 11/03/2020; patient's fever slightly improved low-grade, continue current management, remains on T-piece with 5 L of oxygen 11/04/2020; T-max last 24 hours 100.3 F, new cultures negative to date, monitor off antibiotics Patient is off Levophed, blood pressures reasonable level, tracheostomy on T-p iece 3 to 5 L nasal cannula oxygen 11/05/2020; tracheostomy on T-piece patient remains on 5 L of nasal cannula oxygen, unresponsive severe hypoxic brain injury I called patient's mother Ms. Pamela Bassett as well as patient's spouse Mr. Danilo Dimas at [phone] unable to reach them Left voicemail on Ms. Pamela Bassettz phone and encouraged him to call back 11/06/2020; I tried to call again today Ms. Pamela Bassett to discuss patient's condition and treatment plan and update consultants recommendations and patient's prognosis., unable to reach her I will call patient's spouse and patient's mother to update on patient's condition today The high probability of a clinically significant, sudden or life threatening deterioration of the [MULTIPLE ORGAN] system(s) required my full and direct attention, intervention and personal management. The aggregate critical care time was [33] minutes. This time is in addition to time spent performing reported procedures but includes the following: [X] Data Review and interpretation [X] Patient assessment and monitoring of vital signs [X] Documentation [X] Medication orders and management History Interval history: I seen and examined the patient at the bedside in ICU this morning Patient is on contact isolation due to C. difficile colitis Patient tracheostomy on T-piece 5 L of nasal cannula Noncommunicative in mild distress Vital signs noted Hospitalist Physical - Constitutional Vitals: Temp Pulse Resp BP Pulse Ox 99.1 F 90 26 H 125/71 100 11/06/20 04:00 11/06/20 07:00 11/06/20 07:00 11/06/20 07:00 11/06/20 08:14 General appearance: Present: no acute distress, well-nourished, obese, other (On T-piece 5 L oxygen, noncommunicative) - EENT Eyes: Present: PERRL, EOM intact - Neck Neck: Present: supple, normal ROM - Respiratory Respiratory effort: normal Respiratory: bilateral: diminished, rhonchi, negative: rales, wheezing - Cardiovascular Rhythm: regular Heart Sounds: Present: S1 & S2 - Extremities Extremities: no ischemia, No edema - Abdominal General gastrointestinal: soft, non-tender, non-distended, normal bowel sounds (February) - Integumentary Integumentary: Present: clear, warm - Psychiatric Psychiatric: other (Tracheostomy) - Neurologic Neurologic: other (Sponsor noncommand) HEART Score - HEART Score Age: < 45 Risk factors: 1-2 risk factors - Critical Actions Critical Actions: >7 pts:50-65% risk of adverse cardiac event. Early invasive measures Results - Labs CBC & Chem 7: 11/04/20 05:00 11/04/20 05:00 Labs: Laboratory Last Values WBC 13.8 K/mm3 (4.5-11.0) H 11/04/20 05:00 RBC 3.72 M/mm3 (3.65-5.03) 11/04/20 05:00 Hgb 10.6 gm/dl (10.1-14.3) 11/04/20 05:00 Hgb Comment See scanned result 10/04/20 Unknown Hct 31.8 % (30.3-42.9) 11/04/20 05:00 MCV 86 fl (79-97) 11/04/20 05:00 MCH 28 pg (28-32) 11/04/20 05:00 MCHC 33 % (30-34) 11/04/20 05:00 RDW 16.6 % (13.2-15.2) H 11/04/20 05:00 Plt Count 293 K/mm3 (140-440) 11/04/20 05:00 Lymph % (Auto) 11.8 % (13.4-35.0) L 11/04/20 05:00 Bartholomew % (Auto) 11.0 % (0.0-7.3) H 11/04/20 05:00 Eos % (Auto) 2.0 % (0.0-4.3) 11/04/20 05:00 Baso % (Auto) 0.1 % (0.0-1.8) 11/04/20 05:00 Lymph # (Auto) 1.6 K/mm3 (1.2-5.4) 11/04/20 05:00 Bartholomew # (Auto) 1.5 K/mm3 (0.0-0.8) H 11/04/20 05:00 Eos # (Auto) 0.3 K/mm3 (0.0-0.4) 11/04/20 05:00 Baso # (Auto) 0.0 K/mm3 (0.0-0.1) 11/04/20 05:00 Add Manual Diff Complete 10/29/20 07:56 Total Counted 100 10/29/20 07:56 Seg Neutrophils % 75.1 % (40.0-70.0) H 11/04/20 05:00 Seg Neuts % (Manual) 80.0 % (40.0-70.0) H 10/29/20 07:56 Band Neutrophils % 2.0 % 10/15/20 05:50 Lymphocytes % (Manual) 15.0 % (13.4-35.0) 10/29/20 07:56 Reactive Lymphs % (Man) 1.0 % 10/02/20 12:18 Monocytes % (Manual) 4.0 % (0.0-7.3) 10/29/20 07:56 Eosinophils % (Manual) 1.0 % (0.0-4.3) 10/29/20 07:56 Myelocytes % 2.0 % 10/02/20 13:05 Metamyelocytes % 1.0 % 10/14/20 04:00 Nucleated RBC % Not Reportable 10/29/20 07:56 Seg Neutrophils # 10.4 K/mm3 (1.8-7.7) H 11/04/20 05:00 Seg Neutrophils # Man 10.9 K/mm3 (1.8-7.7) H 10/29/20 07:56 Band Neutrophils # 0.0 K/mm3 10/29/20 07:56 Lymphocytes # (Manual) 2.0 K/mm3 (1.2-5.4) 10/29/20 07:56 Abs React Lymphs (Man) 0.0 K/mm3 10/29/20 07:56 Monocytes # (Manual) 0.5 K/mm3 (0.0-0.8) 10/29/20 07:56 Eosinophils # (Manual) 0.1 K/mm3 (0.0-0.4) 10/29/20 07:56 Basophils # (Manual) 0.0 K/mm3 (0.0-0.1) 10/29/20 07:56 Metamyelocytes # 0.0 K/mm3 10/29/20 07:56 Myelocytes # 0.0 K/mm3 10/29/20 07:56 Promyelocytes # 0.0 K/mm3 10/29/20 07:56 Blast Cells # 0.0 K/mm3 10/29/20 07:56 WBC Morphology Not Reportable 10/29/20 07:56 Hypersegmented Neuts Not Reportable 10/29/20 07:56 Hyposegmented Neuts Not Reportable 10/29/20 07:56 Hypogranular Neuts Not Reportable 10/29/20 07:56 Smudge Cells Not Reportable 10/29/20 07:56 Toxic Granulation Not Reportable 10/29/20 07:56 Toxic Vacuolation Not Reportable 10/29/20 07:56 Dohle Bodies Not Reportable 10/29/20 07:56 Pelger-Huet Anomaly Not Reportable 10/29/20 07:56 Ester Rods Not Reportable 10/29/20 07:56 Platelet Estimate Consistent w auto 10/29/20 07:56 Clumped Platelets Not Reportable 10/29/20 07:56 Plt Clumps, EDTA Not Reportable 10/29/20 07:56 Large Platelets Few 10/29/20 07:56 Giant Platelets Not Reportable 10/29/20 07:56 Platelet Satelliting Not Reportable 10/29/20 07:56 Plt Morphology Comment Not Reportable 10/29/20 07:56 RBC Morphology Not Reportable 10/29/20 07:56 Dimorphic RBCs Not Reportable 10/29/20 07:56 Polychromasia Rare 10/29/20 07:56 Hypochromasia Few 10/29/20 07:56 Poikilocytosis Not Reportable 10/29/20 07:56 Anisocytosis Not Reportable 10/29/20 07:56 Microcytosis Not Reportable 10/29/20 07:56 Macrocytosis Not Reportable 10/29/20 07:56 Spherocytes Not Reportable 10/29/20 07:56 Pappenheimer Bodies Not Reportable 10/29/20 07:56 Sickle Cells Not Reportable 10/29/20 07:56 Target Cells Few 10/29/20 07:56 Tear Drop Cells Not Reportable 10/29/20 07:56 Ovalocytes Not Reportable 10/29/20 07:56 Stomatocytes Few 10/14/20 04:00 Helmet Cells Not Reportable 10/29/20 07:56 [place] Bodies Not Reportable 10/29/20 07:56 [place] Rings Not Reportable 10/29/20 07:56 [place] Cells Not Reportable 10/29/20 07:56 Bite Cells Not Reportable 10/29/20 07:56 Crenated Cell Not Reportable 10/29/20 07:56 Elliptocytes Not Reportable 10/29/20 07:56 Acanthocytes (Spur) Not Reportable 10/29/20 07:56 Rouleaux Not Reportable 10/29/20 07:56 Hemoglobin C Crystals Not Reportable 10/29/20 07:56 Schistocytes Not Reportable 10/29/20 07:56 Malaria parasites Not Reportable 10/29/20 07:56 Sickle Cell Solubility See scanned result 10/04/20 Unknown Hemoglobin A See scanned result 10/04/20 Unknown Hemoglobin A2 See scanned result 10/04/20 Unknown Hemoglobin A2 Prime See scanned result 10/04/20 Unknown Hemoglobin C See scanned result 10/04/20 Unknown Hemoglobin D See scanned result 10/04/20 Unknown Hemoglobin E See scanned result 10/04/20 Unknown Hgb F Diffential Stain See scanned result 10/04/20 Unknown Hemoglobin F Quant See scanned result 10/04/20 Unknown Hemoglobin G See scanned result 10/04/20 Unknown Hemoglobin S See scanned result 10/04/20 Unknown Hemoglobin [place] See scanned result 10/04/20 Unknown Hemoglobin [place] See scanned result 10/04/20 Unknown Hemoglobin [place] See scanned result 10/04/20 Unknown Variant Hemoglobin See scanned result 10/04/20 Unknown Abnorm Hgb IEF Confirm See scanned result 10/04/20 Unknown Hemoglobin Interpret See scanned result 10/04/20 Unknown Hemoglobinopathy Note See scanned result 10/04/20 Unknown Sharad Bodies Not Reportable 10/29/20 07:56 Hem Pathologist Commnt No 10/29/20 07:56 PT 13.6 Sec. (12.2-14.9) 10/21/20 13:54 INR 1.06 (0.87-1.13) 10/21/20 13:54 APTT 31.6 Sec. (24.2-36.6) 10/03/20 00:40 Fibrinogen 336 mg/dl (211-480) 10/04/20 10:00 D-Dimer > 80406 ng/mlDDU (0-234) H 10/04/20 10:00 ABG pH 7.459 pH Units (7.350-7.450) H 10/26/20 10:30 POC ABG pCO2 20.7 mmHg (32.0-48.0) L 10/13/20 07:18 ABG pCO2 32.4 mm Hg 10/26/20 10:30 POC ABG pO2 137.9 mmHg (83-108) H 10/13/20 07:18 ABG pO2 112.2 mm Hg (80.0-90.0) H 10/26/20 10:30 POC ABG HCO3 14.8 10/13/20 07:18 ABG HCO3 22.5 mmol/L (20.0-26.0) 10/26/20 10:30 ABG O2 Saturation 98.2 % (95.0-99.0) 10/26/20 10:30 ABG O2 Content 18.5 (0.0-44) 10/26/20 10:30 POC ABG Base Excess -6.9 10/13/20 07:18 ABG Base Excess -0.6 mmol/L (-2.0-3.0) 10/26/20 10:30 ABG Hemoglobin 13.5 gm/dl (12.0-16.0) 10/26/20 10:30 ABG Oxyhemoglobin 98.3 (94-98) H 10/13/20 07:18 ABG Carboxyhemoglobin 1.3 % (0.0-5.0) 10/26/20 10:30 ABG Methemoglobin 0.5 % (0.0-1.5) 10/26/20 10:30 ABG Sodium 135.9 mmol/L (136.0-145.0) L 10/13/20 07:18 ABG Potassium 3.7 mmol/L (3.40-4.50) 10/13/20 07:18 ABG Chloride 111.0 mmol/L (98-107) H 10/13/20 07:18 ABG Glucose 109 mg/dL (65-95) H 10/13/20 07:18 VBG pH 6.949 (7.320-7.420) L* 10/02/20 Unknown Oxyhemoglobin 96.5 % (95.0-99.0) 10/26/20 10:30 Carboxyhemoglobin 0.3 (0.5-1.5) L 10/13/20 07:18 FiO2 25 % 10/26/20 10:30 Sodium 137 mmol/L (137-145) 11/04/20 05:00 Potassium 4.1 mmol/L (3.6-5.0) 11/04/20 05:00 Chloride 101.1 mmol/L (98-107) 11/04/20 05:00 Carbon Dioxide 25 mmol/L (22-30) 11/04/20 05:00 Anion Gap 15 mmol/L 11/04/20 05:00 BUN 14 mg/dL (7-17) 11/04/20 05:00 Creatinine 0.7 mg/dL (0.6-1.2) 11/04/20 05:00 Estimated GFR > 60 ml/min 11/04/20 05:00 BUN/Creatinine Ratio 20 % 11/04/20 05:00 Glucose 112 mg/dL (65-100) H 11/04/20 05:00 POC Glucose 104 mg/dL (70-105) 11/06/20 03:29 Random Insulin 43.2 uIU/mL (<=19.6) H 11/02/20 19:19 C-Peptide 6.23 ng/mL (0.80-3.85) H 11/02/20 19:19 Lactic Acid 1.90 mmol/L (0.7-2.0) 10/04/20 22:00 Uric Acid 7.5 mg/dL (3.5-7.6) 10/02/20 13:05 Calcium 8.8 mg/dL (8.4-10.2) 11/04/20 05:00 Ionized Calcium 4.4 mg/dL (4.8-5.6) L 10/07/20 21:00 Phosphorus 4.70 mg/dL (2.5-4.5) H 10/29/20 07:56 Magnesium 2.10 mg/dL (1.7-2.3) 11/04/20 05:00 Total Bilirubin 0.50 mg/dL (0.1-1.2) 11/04/20 05:00 AST 90 units/L (5-40) H 11/04/20 05:00 ALT 36 units/L (7-56) 11/04/20 05:00 Alkaline Phosphatase 122 units/L (35-129) 11/04/20 05:00 Lactate Dehydrogenase 769 units/L (91-180) H 10/02/20 13:05 NT-Pro-B Natriuret Pep 2788 pg/mL (0-450) H 10/04/20 10:00 Total Protein 7.4 g/dL (6.3-8.2) 11/04/20 05:00 Albumin 3.8 g/dL (3.9-5) L 11/04/20 05:00 Albumin/Globulin Ratio 1.1 % 11/04/20 05:00 Procalcitonin 0.06 ng/mL (<0.15) 10/27/20 07:53 Arterial Blood Glucose 109 mg/dL (65-95) H 10/13/20 07:18 Arterial Blood Ionized Calcium 4.6 mg/dL (4.6-5.3) 10/13/20 07:18 Urine Color Yellow (Yellow) 10/11/20 13:26 Urine Turbidity Clear (Clear) 10/11/20 13:26 Urine pH 7.0 (5.0-7.0) 10/11/20 13:26 Ur Specific [place] 1.014 (1.003-1.030) 10/11/20 13:26 Urine Protein 100 mg/dl mg/dL (Negative) 10/11/20 13:26 Urine Glucose (UA) Neg mg/dL (Negative) 10/11/20 13:26 Urine Ketones Neg mg/dL (Negative) 10/11/20 13:26 Urine Blood Mod (Negative) 10/11/20 13:26 Urine Nitrite Neg (Negative) 10/11/20 13:26 Urine Bilirubin Neg (Negative) 10/11/20 13:26 Urine Urobilinogen < 2.0 mg/dL (<2.0) 10/11/20 13:26 Ur Leukocyte Esterase Sm (Negative) 10/11/20 13:26 Urine WBC (Auto) 24.0 /HPF (0.0-6.0) H 10/11/20 13:26 Urine RBC (Auto) 59.0 /HPF (0.0-6.0) 10/11/20 13:26 Urine Bacteria (Auto) 1+ /HPF (Negative) 10/11/20 13:26 Urine Mucus Few /HPF 10/11/20 13:26 Vancomycin Trough 12.6 ug/mL (5.0-20.0) 10/21/20 13:54 Random Vancomycin 10.7 ug/mL (0-40.0) 10/16/20 13:09 Phenytoin 5.7 ug/mL (10.0-20.0) L 10/13/20 07:00 C. difficile Tox (PCR) Positive (Negative) 10/16/20 10:22 Coronavirus (PCR) Negative (Negative) 10/08/20 14:15 Blood Type O POSITIVE 10/02/20 12:50 Antibody Screen Negative 10/02/20 12:50 Crossmatch See Detail 10/02/20 12:50 Microbiology: Microbiology 11/02/20 19:35 Peripheral/Venous Blood Culture - Preliminary NO GROWTH AFTER 72 HOURS 11/02/20 19:19 Peripheral/Venous Blood Culture - Preliminary NO GROWTH AFTER 72 HOURS 11/02/20 09:30 Tracheal Aspirate Sputum Culture - Preliminary - Diagnostic Impressions Diagnostic Impressions: Echocardiogram 10/03/20 13:42 Transthoracic Echocardiogram Indication: S/P Cardiac Arrest R/O Cardiomyopathy BP: 133/71 Conclusions *Global left ventricular systolic function is normal. *The estimated ejection fraction is 60-65%. *There is trace of mitral regurgitation. *The right 0heart chambers are both slightly dilated. *There is mild tricuspid regurgitation. *There is mild-moderate pulmonary hypertension. *The right ventricular systolic pressure is calculated at 44 mmHg. *The study quality is technically difficult. Findings Procedure Info: The study quality is technically difficult. The study is technically limited due to patient body habitus. The study was technically limited due to the patient's inability to lay in the left lateral decubitus position. Left Ventricle: The left ventricular chamber size is normal. There is no left ventricular hypertrophy. Global left ventricular systolic function is normal. The estimated ejection fraction is 60-65%. Left Atrium: The left atrial chamber size is normal. Right Ventricle: The right ventricle is slightly dilated. Right Atrium: The right atrium is mildly dilated. Aortic Valve: The aortic valve leaflets are mildly thickened. There is no evidence of aortic regurgitation. There is no evidence of aortic stenosis. Mitral Valve: The mitral valve leaflets are mildly thickened. There is trace of mitral regurgitation. There is no evidence of mitral stenosis. Tricuspid Valve: There is mild tricuspid regurgitation. The right ventricular systolic pressure is calculated at 44 mmHg. There is evidence of mild pulmonary hypertension. Pulmonic Valve: There is trace pulmonic regurgitation. Pericardium: There is no pericardial effusion. Aorta: There is no dilatation of the ascending aorta. There is no dilatation of the aortic root. Venous: The inferior vena cava is dilated. Measurements Chambers 2D Name Value Normal Range IVSd (2D) 1 cm (0.6 - 1.1) LVPWd (2D) 1.01 cm (0.6 - 1.1) LVIDd (2D) 4.58 cm (3.7 - 5.6) LVIDs (2D) 3.17 cm (2 - 3.8) LV FS (2D) 30.93 % - EF Teichholz (2D) 58.66 % - Ao root diameter (2D) 2.94 cm (2 - 3.7) Volumes/Mass Name Value Normal Range LA ESV SP 4CH (A/L) 72.82 ml - LA ESV SP 2CH (A/L) 66.86 ml - LA ESV BP (A/L) 74.49 ml - LA ESV SP 4CH (MOD) 71.03 ml - LA ESV SP 2CH (MOD) 64.3 ml - LV EDV SP 4CH (MOD) 98.82 ml - LV ESV SP 4CH (MOD) 24.8 ml - EF SP 4CH (MOD) 74.9 % - LV EDV SP 2CH (MOD) 86.1 ml - LV ESV SP 2CH (MOD) 36.93 ml - EF SP 2CH (MOD) 57.11 % - LV EDV BP 94.4 ml - LV ESV BP 32.66 ml - BP EF (MOD) 65.4 % - Diastolic/Systolic Function Name Value Normal Range MV E-wave Vmax 1.04 m/sec - MV deceleration time 160.46 msec - MV A-wave Vmax 0.92 m/sec - MV E:A ratio 1.14 ratio - Aortic Valve Name Value Normal Range AV Vmax 2.12 m/sec - AV VTI 22.37 cm - AV peak gradient 17.95 mmHg - AV mean gradient 7.29 mmHg - LVOT diameter 2.01 cm - LVOT Vmax 1.8 m/sec - LVOT VTI 27.17 cm - LVOT peak gradient 12.91 mmHg - LVOT mean gradient 6.83 mmHg - SV LVOT 86.42 ml - ANITA (continuity Vmax) 2.7 cm2 - ANITA (continuity VTI) 3.86 cm2 - Ascending Ao 3.18 cm - Tricuspid Valve Name Value Normal Range TV E-wave Vmax 0.88 m/sec - TR Vmax 3.01 m/sec - TR peak gradient 36.27 mmHg - RAP 8 mmHg - RVSP 44 mmHg - IVC diameter 2.65 cm (1.2 - 2.3) Pulmonic Valve/Qp:Qs Name Value Normal Range PV Vmax 1.22 m/sec - PV peak gradient 5.91 mmHg - RVOT Vmax 0.87 m/sec - RVOT VTI 13.32 cm - RVOT peak gradient 3 mmHg - PV acceleration time 110.37 msec - [place]/IV: Voiding Method External Female Catheter IV Catheter Type [Right Foot] INT / Saline Lock IV Catheter Type [Left Forearm Peripheral IV ] IV Catheter Type [Left Wrist] INT / Saline Lock IV Catheter Type [Right Hand] INT / Saline Lock IV Catheter Type [Right INT / Saline Lock Antecubital] IV Catheter Type [Right Upper Mid-line arm] IV Catheter Type [Left Triple Lumen Cath Internal Jugular] IV Catheter Type [Left Hand] Peripheral IV IV Catheter Type [Left Peripheral IV Antecubital] Active Medications - Current Medications Current Medications: Generic Name Dose Route Start Last Admin Trade Name Freq PRN Reason Stop Dose Admin Acetaminophen 650 mg 10/05/20 16:34 11/05/20 21:30 Acetaminophen 325 Mg/10.15 Ml Oral Liqd Unit Dose FEEDTUBE 650 mg Q6H PRN Administration Non Cardiac Pain or Temp>100.5 Albuterol 2.5 mg 11/05/20 13:03 11/06/20 08:14 Albuterol 2.5 Mg/3 Ml Nebu IH 2.5 mg Q4HRT PRN Administration Shortness Of Breath Lipase/Protease/Amylase 1 each 10/05/20 11:09 Lipase 10,500/Protease 25,000/Amylase 43,750 (Units) Dr Barakat FEEDTUBE PRN PRN For Clogged Feeding Tube Enoxaparin Sodium 40 mg 10/22/20 10:00 11/05/20 10:59 Enoxaparin 40 Mg/0.4 Ml Inj SUB-Q 40 mg DAILY ERINN Administration Protocol Famotidine 20 mg 10/07/20 10:00 11/05/20 21:29 Famotidine 20 Mg Tab PO 20 mg BID ERINN Administration Furosemide 40 mg 10/17/20 10:00 11/05/20 10:59 Furosemide 40 Mg Tab PO 40 mg QDAY ERINN Administration Hydralazine HCl 20 mg 10/07/20 11:49 10/17/20 07:20 Hydralazine 20 Mg/1 Ml Inj IV 20 mg Q6H PRN Administration SBP >170 Hydralazine HCl 50 mg 10/17/20 09:00 11/06/20 06:27 Hydralazine 25 Mg Tab PO 50 mg Q8HR ERINN Administration Dextrose 1,000 mls @ 75 mls/hr 10/13/20 11:00 11/06/20 06:26 D10w IV 75 mls/hr DIRECT ERINN Administration Labetalol HCl 300 mg 10/17/20 09:00 11/05/20 19:41 Labetalol 100 Mg Tab PO 300 mg TID ERINN Administration Simple Syrup 15 ml 10/05/20 11:09 Simple Syrup 15 Ml FEEDTUBE PRN PRN Hypoglycemia Simple Syrup 30 ml 10/05/20 11:09 Simple Syrup 15 Ml FEEDTUBE PRN PRN Hypoglycemia Sodium Bicarbonate 325 mg 10/05/20 11:09 Sodium Bicarbonate 325 Mg Tab FEEDTUBE PRN PRN For Clogged Feeding Tube Sodium Bicarbonate 1,300 mg 10/13/20 14:00 11/05/20 19:42 Sodium Bicarbonate 650 Mg Tab PO 1,300 mg TID ERINN Administration Topiramate 50 mg 10/05/20 11:00 11/05/20 21:29 Topiramate Tab 25 Mg Tab PO 50 mg Q12HR ERINN Administration Nutrition/Malnutrition Assess - Dietary Evaluation Nutrition/Malnutrition Findings: Nutrition Notes Start: 10/04/20 11:13 Freq: Status: Active Protocol: Document 11/05/20 13:18 CW (Rec: 11/05/20 13:29 CW [id number]) Co-Sign 11/05/20 13:18 MK Nutrition Notes Initial or Follow up Reassessment Current Diagnosis Acute Kidney Injury, Respiratory Failure Other Pertinent Diagnosis Cardiac arrest, s/p c-sectuion and supracervial hysterectomy Current Diet Jevity 1.2 at 60 ml/hr Labs/Tests 11/04 BG 112 Pertinent Medications lasix D10w at 75ml/hr Height 5 ft 8 in Weight 106.8 kg [place] Body Weight (kg) 63.63 BMI 35.8 Weight Status Morbidly Obese Subjective/Other Information FU for TF tolerance, labs. Pt remains on T-piece with TF running at goal and D10w infusing. Per chart, pending POC. Percent of energy/protein needs met: 100%/100% Burn Absent Trauma Absent GI Symptoms None Food Allergy Yes Current % PO Negligible Minimum of two criteria No Fluid Accumulation Mild (non-severe) #1 Nutrition Diagnosis Inadequate oral intake Diagnosis Progress(for reassessment Continues documentation) Is patient on ventilator? No Is Patient Ambulatory and/or Out of Bed No REE-([facility]-confined to bed) 2193.588 Kcal/Kg value to use for calculation 16 Approximate Energy Requirements Using 1709 kcal/Kg Calculation Used for Recommendations Kcal/kg Additional Notes Protein needs are 68-84g (0.8- 1g/kg AdjBW 85kg) Fluid needs are 1ml/kcal Nutrition Intervention Change Diet Order: Continue Nutrition Support: Jevity 1.2 at 60ml/hr. Flush 100ml q4h. Kcal 1,782 Protein (gm) 87 Fluid (mL) 1,259 Goal #1 TF tolerance Goal #2 Meet at least 75% of energy and protein needs Anticipated Discharge Needs: Unable to determine at this time Follow-Up By: 11/10/20 Additional Comments FU for TF tolerance, POC
--- NOTE | 2020-11-06 09:06 | Progress Note ---
Assessment and Plan 30 y/o female with Eclampsia, s/p emergent section with DIC, acute respiratory failure and worsening renal function. 11/06/20: No new recs. Will continue to check for outside lab results over the weekend. 11/05/20: Awaiting outside labs to work up hypoglycemia. Will add some PRN albuterol nebs to see if this will help to thin out her secretions. 11/04/20: No changes. No new recs. Awaiting send out labs to help figure out hypoglycemia. 11/03/20: Continue D10. Await send out labs. 11/02/20: Called lab today to ask how to order these send out labs. Continue D10 along with feeds for now. Stopped robinol and no further reports of increased thickness of secretions. given D10 requirement, do not feel comfortable with transition to the floor. 11/01/20: Will stop Robinol as this may be making secretions to thick. Huge risk for mucous plugging given mental state. Continue D10 and waiting on labs from yesterday. LFT's repeated and AST elevated along with alk phos. Both of these were elevated on admission, then resolved and now are elevated again. In current clinical state, not sure what to make of those numbers. They do not help with trying to figure out hypoglycemia and persistent need for D10. Continue IMCU care. 10/31/20: Will order midline for IV team vs peripheral IV's (multiple). Needs access for d10 as we have not been able to figure out why she is so hypoglyemic. Will measure serum insulin levels and C-peptide levels, as well proinsulin. All of these labs are sendouts so will have to call down to ask how to order as they are not coming up in [facility]. Given her requirement for supplemental IV sugar, not a candidate for floor transfer. 10/30/20: Continue step down monitoring for now. If does well the next 24-36 hours, then will consider floor transfer. Really needs to continue PT with PROM. Will speak with CM about options for here now that critical needs are becoming minimal. 10/29/20: Off vent now for 24 hours. Tolerating T-Piece. Will transition to step down for a few days. If does well there, consider transition to floor. Continue PT. Guarded prognosis. 10/28/20: Daily T-piece trials for as long as tolerated. Attempt to push further daily. OT does not do passive range of motion. Per PT note will do passive range of motion with patient. Guarded prognosis. Hoping to wean off vent and transition to floor. 10/27/20: Continue daily T-piece trials for as long as tolerated. Ok with resting on either PSV or full rate if needed at night but need to strengthen her respiratory muscles. PT/OT if possible. Will transition to step down prior to going to floor to insure stability. 10/26/20: Will obtain ABG today. If good, will attempt on T-piece later. Continue PT/OT. Will speak with CM about possibility of LTACH or nursing facility that can take trached patients. 10/23/20: Daily PSV trials for as long as patient will tolerate. Needs PT/OT consult for passive range of motion. 10/22/20: Will start prolonged PSV trials. Attempt to wean from vent and then transition to floor to see if mental status improves. Continue tube feeds. 10/21/20: Trach and peg placed. No sedation. Restart Lovenox for Upper Ext DVT. Restart feeds when surgery states ok to use PEG. C. Diff treatment per ID. Guarded prognosis. Will be a lobsterman wean. Hopeful to wean off vent at least and then can transfer to floor. 10/20/20: NPO after midnight. DVT study just read from 10/14 on yesterday showing upper ext DVT. Started on Lovenox but need to hold therapy until after surgery. could be source of fevers. No sedation. 10/19/20: Stable BP. Will meet/talk with family at noon over the phone with myself and case management. Need to discuss goals of care and what next steps would be. Patient would need trach and peg and transfer to LTACH if family ok with this. Follow up speciation of GNR's in blood. Has been on Cefepime. Continues therapy for C. Diff. Guarded prognosis. Continue daily PSV trials but not ready for extubation secondary to mental state. 10/18/20: Blood pressure is much better with the addition of meds started on yesterday. Need to have family meeting jesica in regards to goals of care. Continue Daily PSV trials but not ready for extubation. Continue therapy for C. Diff per ID. 10/17/20: CT scan was of no help in regards to fevers. C. Diff is positive and BP now is more uncontrolled despite increasing labetalol. Today will increase to 300 TID. Added TID Hydralazine and added PO lasix given her mild pulmonary htn seen on echo. Spoke with mother over the phone and she requests to come see the patient. Given current circumstances, will allow her to come briefly today and then will speak with her at the bedside. No neurology is available at the time and suspect these will be the majority of her questions. Tolerated PSV briefly yesterday and will do again today but not for extended periods as given her mental state she is not a candidate for extubation. I will also ask the mother about lobsterman care (trach and peg) when she comes today. Overall prognosis is guarded to poor. If oral meds cannot regulate blood pressure, may need Cardene drip. Continue therapy for C. Diff per ID. Subjective Date of service: 11/06/20 Principal diagnosis: Eclampsia/HELLP Syndrome, ADOLPH, DIC; s/p , s/p supracervical hyst Interval history: No acute events. Spoke with lab and send outs are not back yet. Still on D10. Stable pulm status. Objective Vital Signs - 12hr 11/05/20 11/05/20 11/05/20 21:31 22:00 22:30 Temperature Pulse Rate 81 88 Pulse Rate [ From Monitor] Respiratory 29 H 12 Rate Blood Pressure 106/50 105/58 O2 Sat by Pulse 99 Oximetry O2 Sat by Pulse Oximetry [ Assessment] 11/05/20 11/06/20 11/06/20 23:00 00:00 00:01 Temperature 99.1 F Pulse Rate 78 73 77 Pulse Rate [ 73 From Monitor] Respiratory 24 21 22 Rate Blood Pressure 106/55 106/58 O2 Sat by Pulse 100 100 100 Oximetry O2 Sat by Pulse Oximetry [ Assessment] 11/06/20 11/06/20 11/06/20 01:00 01:19 02:00 Temperature Pulse Rate 95 H 94 H Pulse Rate [ From Monitor] Respiratory 25 H 17 Rate Blood Pressure 101/64 122/55 O2 Sat by Pulse 100 100 100 Oximetry O2 Sat by Pulse 100 Oximetry [ Assessment] 11/06/20 11/06/20 11/06/20 03:00 04:00 05:00 Temperature 99.1 F Pulse Rate 98 H 97 H 92 H Pulse Rate [ 95 H From Monitor] Respiratory 13 18 33 H Rate Blood Pressure 120/73 134/65 119/63 O2 Sat by Pulse 100 100 100 Oximetry O2 Sat by Pulse Oximetry [ Assessment] 11/06/20 11/06/20 11/06/20 06:00 06:27 07:00 Temperature Pulse Rate 86 96 H 90 Pulse Rate [ From Monitor] Respiratory 23 26 H Rate Blood Pressure 120/69 120/69 125/71 O2 Sat by Pulse 100 100 Oximetry O2 Sat by Pulse Oximetry [ Assessment] 11/06/20 11/06/20 08:00 08:14 Temperature 98.7 F Pulse Rate Pulse Rate [ From Monitor] Respiratory Rate Blood Pressure O2 Sat by Pulse 100 Oximetry O2 Sat by Pulse 100 Oximetry [ Assessment] Constitutional: comatose, other (critically ill on ventilator trach) Eyes: non-icteric ENT: oropharynx moist, other (orally intubated and not sedated) Neck: other (large in cirumference) Effort: normal Ascultation: Bilateral: clear, diminished breath sounds, other (coarse BS bilaterally w/ mild faint wheezes) Percussion: Bilateral: not dull Cardiovascular: regular rate and rhythm, other (no mrg) Gastrointestinal: normoactive bowel sounds, soft, other (post surgical changes with drain on the left side) Extremities: no cyanosis, pink and warm, anasarca Neurologic: other (unresponsive, not following commands, not tracking) Psychiatric: other (unable to assess) CBC and BMP: 11/04/20 05:00 11/04/20 05:00 ABG, PT/INR, D-dimer: ABG ABG pH 7.459 pH Units (7.350-7.450) H 10/26/20 10:30 POC ABG pCO2 20.7 mmHg (32.0-48.0) L 10/13/20 07:18 ABG pCO2 32.4 mm Hg 10/26/20 10:30 POC ABG pO2 137.9 mmHg (83-108) H 10/13/20 07:18 ABG pO2 112.2 mm Hg (80.0-90.0) H 10/26/20 10:30 POC ABG HCO3 14.8 10/13/20 07:18 ABG O2 Saturation 98.2 % (95.0-99.0) 10/26/20 10:30 PT/INR, D-dimer PT 13.6 Sec. (12.2-14.9) 10/21/20 13:54 INR 1.06 (0.87-1.13) 10/21/20 13:54 D-Dimer > 43039 ng/mlDDU (0-234) H 10/04/20 10:00 Abnormal lab findings: Abnormal Labs 10/02/20 10/02/20 10/02/20 12:03 12:18 12:18 WBC 14.9 H RBC Hgb 9.1 L Hct MCV MCH 22 L MCHC 28 L RDW 17.6 H Plt Count 102 L Lymph % (Auto) Carter % (Auto) Lymph # (Auto) Carter # (Auto) Baso # (Auto) Seg Neutrophils % Seg Neuts % (Manual) 36.0 L Lymphocytes % (Manual) 49.0 H Monocytes % (Manual) Nucleated RBC % 6.0 H Seg Neutrophils # Seg Neutrophils # Man Lymphocytes # (Manual) 7.3 H Monocytes # (Manual) PT INR APTT Fibrinogen D-Dimer ABG pH POC ABG pCO2 POC ABG pO2 ABG pO2 ABG HCO3 ABG Base Excess ABG Hemoglobin ABG Oxyhemoglobin ABG Sodium ABG Potassium ABG Chloride ABG Glucose VBG pH Oxyhemoglobin Carboxyhemoglobin Sodium 134 L Potassium Chloride Carbon Dioxide 12 L BUN 6 L Creatinine Glucose 390 H POC Glucose 451 H Random Insulin C-Peptide Lactic Acid Calcium Ionized Calcium Phosphorus Magnesium AST 135 H ALT 85 H Alkaline Phosphatase 172 H Lactate Dehydrogenase 641 H NT-Pro-B Natriuret Pep Total Protein 5.4 L Albumin 2.3 L Arterial Blood Glucose Arterial Blood Ionized Calcium Urine WBC (Auto) Vancomycin Trough Phenytoin Crossmatch 10/02/20 10/02/20 10/02/20 12:50 13:05 13:05 WBC 38.6 H RBC Hgb 8.9 L Hct 29.0 L MCV 73 L MCH 22 L MCHC RDW 17.2 H Plt Count Lymph % (Auto) Carter % (Auto) Lymph # (Auto) Carter # (Auto) Baso # (Auto) Seg Neutrophils % Seg Neuts % (Manual) Lymphocytes % (Manual) Monocytes % (Manual) Nucleated RBC % 2.0 H Seg Neutrophils # Seg Neutrophils # Man 20.1 H Lymphocytes # (Manual) 10.4 H Monocytes # (Manual) 2.3 H PT INR APTT Fibrinogen D-Dimer ABG pH POC ABG pCO2 POC ABG pO2 ABG pO2 ABG HCO3 ABG Base Excess ABG Hemoglobin ABG Oxyhemoglobin ABG Sodium ABG Potassium ABG Chloride ABG Glucose VBG pH Oxyhemoglobin Carboxyhemoglobin Sodium Potassium Chloride Carbon Dioxide BUN Creatinine Glucose POC Glucose Random Insulin C-Peptide Lactic Acid Calcium Ionized Calcium Phosphorus Magnesium AST 184 H ALT 113 H Alkaline Phosphatase Lactate Dehydrogenase 769 H NT-Pro-B Natriuret Pep Total Protein Albumin Arterial Blood Glucose Arterial Blood Ionized Calcium Urine WBC (Auto) Vancomycin Trough Phenytoin Crossmatch See Detail 10/02/20 10/02/20 10/02/20 16:25 16:35 16:35 WBC RBC Hgb Hct MCV MCH MCHC RDW Plt Count Lymph % (Auto) Carter % (Auto) Lymph # (Auto) Carter # (Auto) Baso # (Auto) Seg Neutrophils % Seg Neuts % (Manual) Lymphocytes % (Manual) Monocytes % (Manual) Nucleated RBC % Seg Neutrophils # Seg Neutrophils # Man Lymphocytes # (Manual) Monocytes # (Manual) PT INR APTT Fibrinogen D-Dimer ABG pH 7.031 L* POC ABG pCO2 POC ABG pO2 ABG pO2 116.8 H ABG HCO3 12.7 L ABG Base Excess -16.9 L ABG Hemoglobin 7.8 L ABG Oxyhemoglobin ABG Sodium ABG Potassium ABG Chloride ABG Glucose VBG pH Oxyhemoglobin 94.9 L Carboxyhemoglobin Sodium Potassium Chloride Carbon Dioxide BUN Creatinine Glucose 403 H POC Glucose Random Insulin C-Peptide Lactic Acid 11.40 H* Calcium 6.3 L D Ionized Calcium Phosphorus Magnesium AST 70 H ALT Alkaline Phosphatase Lactate Dehydrogenase NT-Pro-B Natriuret Pep Total Protein 1.9 L D Albumin 1.2 L Arterial Blood Glucose Arterial Blood Ionized Calcium Urine WBC (Auto) Vancomycin Trough Phenytoin Crossmatch 10/02/20 10/02/20 10/02/20 18:18 18:18 22:30 WBC 11.5 H RBC 2.06 L Hgb 5.5 L* D Hct 17.3 L* D MCV MCH 27 L MCHC RDW 19.5 H Plt Count 60 L Lymph % (Auto) Carter % (Auto) Lymph # (Auto) Carter # (Auto) Baso # (Auto) Seg Neutrophils % Seg Neuts % (Manual) Lymphocytes % (Manual) 8.0 L Monocytes % (Manual) 8.0 H Nucleated RBC % 8.0 H Seg Neutrophils # Seg Neutrophils # Man Lymphocytes # (Manual) 0.9 L Monocytes # (Manual) 0.9 H PT 37.1 H INR 3.71 H APTT 135.8 H* Fibrinogen D-Dimer ABG pH 7.067 L* POC ABG pCO2 POC ABG pO2 ABG pO2 183.0 H ABG HCO3 14.1 L ABG Base Excess -15.1 L ABG Hemoglobin 7.7 L ABG Oxyhemoglobin ABG Sodium ABG Potassium ABG Chloride ABG Glucose VBG pH Oxyhemoglobin Carboxyhemoglobin Sodium Potassium Chloride Carbon Dioxide BUN Creatinine Glucose POC Glucose Random Insulin C-Peptide Lactic Acid Calcium Ionized Calcium Phosphorus Magnesium AST ALT Alkaline Phosphatase Lactate Dehydrogenase NT-Pro-B Natriuret Pep Total Protein Albumin Arterial Blood Glucose Arterial Blood Ionized Calcium Urine WBC (Auto) Vancomycin Trough Phenytoin Crossmatch 10/02/20 10/02/20 10/03/20 Unknown Unknown 00:01 WBC RBC Hgb Hct MCV MCH MCHC RDW Plt Count Lymph % (Auto) Carter % (Auto) Lymph # (Auto) Carter # (Auto) Baso # (Auto) Seg Neutrophils % Seg Neuts % (Manual) Lymphocytes % (Manual) Monocytes % (Manual) Nucleated RBC % Seg Neutrophils # Seg Neutrophils # Man Lymphocytes # (Manual) Monocytes # (Manual) PT 61.1 H INR 6.92 H* APTT 158.7 H* Fibrinogen < 60 L* D-Dimer > 01164 H ABG pH POC ABG pCO2 POC ABG pO2 ABG pO2 ABG HCO3 ABG Base Excess ABG Hemoglobin ABG Oxyhemoglobin ABG Sodium ABG Potassium ABG Chloride ABG Glucose VBG pH 6.949 L* Oxyhemoglobin Carboxyhemoglobin Sodium Potassium Chloride Carbon Dioxide BUN Creatinine Glucose POC Glucose 196 H Random Insulin C-Peptide Lactic Acid Calcium Ionized Calcium Phosphorus Magnesium AST ALT Alkaline Phosphatase Lactate Dehydrogenase NT-Pro-B Natriuret Pep Total Protein Albumin Arterial Blood Glucose Arterial Blood Ionized Calcium Urine WBC (Auto) Vancomycin Trough Phenytoin Crossmatch 10/03/20 10/03/20 10/03/20 00:40 00:40 00:40 WBC RBC Hgb Hct MCV MCH MCHC RDW Plt Count Lymph % (Auto) Carter % (Auto) Lymph # (Auto) Carter # (Auto) Baso # (Auto) Seg Neutrophils % Seg Neuts % (Manual) Lymphocytes % (Manual) Monocytes % (Manual) Nucleated RBC % Seg Neutrophils # Seg Neutrophils # Man Lymphocytes # (Manual) Monocytes # (Manual) PT 15.1 H INR 1.21 H APTT Fibrinogen D-Dimer ABG pH POC ABG pCO2 POC ABG pO2 ABG pO2 ABG HCO3 ABG Base Excess ABG Hemoglobin ABG Oxyhemoglobin ABG Sodium ABG Potassium ABG Chloride ABG Glucose VBG pH Oxyhemoglobin Carboxyhemoglobin Sodium 136 L Potassium Chloride Carbon Dioxide BUN Creatinine 1.6 H D Glucose 106 H POC Glucose Random Insulin C-Peptide Lactic Acid 5.60 H* Calcium 6.5 L Ionized Calcium Phosphorus Magnesium AST 232 H ALT 104 H Alkaline Phosphatase Lactate Dehydrogenase NT-Pro-B Natriuret Pep Total Protein 3.9 L D Albumin 2.4 L Arterial Blood Glucose Arterial Blood Ionized Calcium Urine WBC (Auto) Vancomycin Trough Phenytoin Crossmatch 10/03/20 10/03/20 10/03/20 02:08 02:08 02:08 WBC 17.6 H RBC 3.27 L Hgb 9.9 L D Hct 29.9 L D MCV MCH MCHC RDW 16.5 H Plt Count 75 L Lymph % (Auto) Carter % (Auto) Lymph # (Auto) Carter # (Auto) Baso # (Auto) Seg Neutrophils % Seg Neuts % (Manual) 76.0 H Lymphocytes % (Manual) Monocytes % (Manual) Nucleated RBC % 8.0 H Seg Neutrophils # Seg Neutrophils # Man 13.4 H Lymphocytes # (Manual) Monocytes # (Manual) PT INR APTT Fibrinogen D-Dimer ABG pH POC ABG pCO2 POC ABG pO2 ABG pO2 ABG HCO3 ABG Base Excess ABG Hemoglobin ABG Oxyhemoglobin ABG Sodium ABG Potassium ABG Chloride ABG Glucose VBG pH Oxyhemoglobin Carboxyhemoglobin Sodium Potassium Chloride Carbon Dioxide 19 L BUN Creatinine 1.4 H Glucose 306 H POC Glucose Random Insulin C-Peptide Lactic Acid 10.50 H* Calcium 6.4 L Ionized Calcium Phosphorus Magnesium AST ALT Alkaline Phosphatase Lactate Dehydrogenase NT-Pro-B Natriuret Pep Total Protein Albumin Arterial Blood Glucose Arterial Blood Ionized Calcium Urine WBC (Auto) Vancomycin Trough Phenytoin Crossmatch 10/03/20 10/03/20 10/03/20 02:42 03:59 05:31 WBC RBC Hgb Hct MCV MCH MCHC RDW Plt Count Lymph % (Auto) Carter % (Auto) Lymph # (Auto) Carter # (Auto) Baso # (Auto) Seg Neutrophils % Seg Neuts % (Manual) Lymphocytes % (Manual) Monocytes % (Manual) Nucleated RBC % Seg Neutrophils # Seg Neutrophils # Man Lymphocytes # (Manual) Monocytes # (Manual) PT INR APTT Fibrinogen D-Dimer ABG pH 7.144 L POC ABG pCO2 54.4 H POC ABG pO2 ABG pO2 ABG HCO3 ABG Base Excess ABG Hemoglobin 10.0 L ABG Oxyhemoglobin ABG Sodium ABG Potassium ABG Chloride 108.0 H ABG Glucose 306 H VBG pH Oxyhemoglobin Carboxyhemoglobin Sodium Potassium Chloride Carbon Dioxide BUN Creatinine Glucose POC Glucose 209 H Random Insulin C-Peptide Lactic Acid 9.20 H* Calcium Ionized Calcium Phosphorus Magnesium AST ALT Alkaline Phosphatase Lactate Dehydrogenase NT-Pro-B Natriuret Pep Total Protein Albumin Arterial Blood Glucose 306 H Arterial Blood Ionized Calcium 3.7 L Urine WBC (Auto) Vancomycin Trough Phenytoin Crossmatch 10/03/20 10/03/20 10/03/20 09:00 09:00 09:00 WBC 27.4 H RBC 2.84 L Hgb 8.5 L Hct 25.1 L MCV MCH MCHC RDW 16.1 H Plt Count 72 L Lymph % (Auto) Carter % (Auto) Lymph # (Auto) Carter # (Auto) Baso # (Auto) Seg Neutrophils % Seg Neuts % (Manual) Lymphocytes % (Manual) 11.0 L Monocytes % (Manual) Nucleated RBC % 3.0 H Seg Neutrophils # Seg Neutrophils # Man 18.4 H Lymphocytes # (Manual) Monocytes # (Manual) 1.9 H PT INR APTT Fibrinogen D-Dimer ABG pH POC ABG pCO2 POC ABG pO2 ABG pO2 ABG HCO3 ABG Base Excess ABG Hemoglobin ABG Oxyhemoglobin ABG Sodium ABG Potassium ABG Chloride ABG Glucose VBG pH Oxyhemoglobin Carboxyhemoglobin Sodium Potassium Chloride Carbon Dioxide BUN Creatinine 1.7 H Glucose 216 H POC Glucose Random Insulin C-Peptide Lactic Acid 9.20 H* Calcium 6.3 L Ionized Calcium Phosphorus Magnesium AST 331 H ALT 171 H Alkaline Phosphatase Lactate Dehydrogenase NT-Pro-B Natriuret Pep Total Protein 3.7 L Albumin 1.9 L Arterial Blood Glucose Arterial Blood Ionized Calcium Urine WBC (Auto) Vancomycin Trough Phenytoin Crossmatch 10/03/20 10/03/20 10/03/20 11:20 11:46 11:50 WBC 28.7 H RBC 2.67 L Hgb 8.0 L Hct 23.7 L MCV MCH MCHC RDW 16.6 H Plt Count 76 L Lymph % (Auto) Carter % (Auto) Lymph # (Auto) Carter # (Auto) Baso # (Auto) Seg Neutrophils % Seg Neuts % (Manual) Lymphocytes % (Manual) Monocytes % (Manual) Nucleated RBC % Seg Neutrophils # Seg Neutrophils # Man Lymphocytes # (Manual) Monocytes # (Manual) PT INR APTT Fibrinogen D-Dimer ABG pH POC ABG pCO2 POC ABG pO2 ABG pO2 ABG HCO3 ABG Base Excess ABG Hemoglobin ABG Oxyhemoglobin ABG Sodium ABG Potassium ABG Chloride ABG Glucose VBG pH Oxyhemoglobin Carboxyhemoglobin Sodium Potassium Chloride Carbon Dioxide BUN Creatinine Glucose POC Glucose 125 H Random Insulin C-Peptide Lactic Acid 8.00 H* Calcium Ionized Calcium Phosphorus Magnesium AST ALT Alkaline Phosphatase Lactate Dehydrogenase NT-Pro-B Natriuret Pep Total Protein Albumin Arterial Blood Glucose Arterial Blood Ionized Calcium Urine WBC (Auto) Vancomycin Trough Phenytoin Crossmatch 10/03/20 10/04/20 10/04/20 11:50 00:40 00:40 WBC RBC Hgb 6.8 L Hct 19.4 L* MCV MCH MCHC RDW Plt Count 49 L Lymph % (Auto) Carter % (Auto) Lymph # (Auto) Carter # (Auto) Baso # (Auto) Seg Neutrophils % Seg Neuts % (Manual) Lymphocytes % (Manual) Monocytes % (Manual) Nucleated RBC % Seg Neutrophils # Seg Neutrophils # Man Lymphocytes # (Manual) Monocytes # (Manual) PT INR APTT Fibrinogen D-Dimer ABG pH 7.244 L POC ABG pCO2 POC ABG pO2 ABG pO2 ABG HCO3 ABG Base Excess -4.5 L ABG Hemoglobin 7.3 L ABG Oxyhemoglobin ABG Sodium ABG Potassium ABG Chloride ABG Glucose VBG pH Oxyhemoglobin Carboxyhemoglobin Sodium Potassium Chloride Carbon Dioxide BUN Creatinine Glucose POC Glucose Random Insulin C-Peptide Lactic Acid Calcium Ionized Calcium Phosphorus Magnesium AST ALT Alkaline Phosphatase Lactate Dehydrogenase NT-Pro-B Natriuret Pep Total Protein Albumin Arterial Blood Glucose Arterial Blood Ionized Calcium Urine WBC (Auto) Vancomycin Trough Phenytoin Crossmatch 10/04/20 10/04/20 10/04/20 03:53 10:00 10:00 WBC 14.6 H RBC 2.57 L Hgb 7.6 L Hct 22.5 L MCV MCH MCHC RDW 15.8 H Plt Count 38 L Lymph % (Auto) 7.7 L Carter % (Auto) Lymph # (Auto) 1.1 L Carter # (Auto) 0.9 H Baso # (Auto) Seg Neutrophils % 85.6 H Seg Neuts % (Manual) Lymphocytes % (Manual) Monocytes % (Manual) Nucleated RBC % Seg Neutrophils # 12.5 H Seg Neutrophils # Man Lymphocytes # (Manual) Monocytes # (Manual) PT INR APTT Fibrinogen D-Dimer ABG pH POC ABG pCO2 POC ABG pO2 110.6 H ABG pO2 ABG HCO3 ABG Base Excess ABG Hemoglobin 6.7 L ABG Oxyhemoglobin ABG Sodium 132.0 L ABG Potassium ABG Chloride ABG Glucose 111 H VBG pH Oxyhemoglobin Carboxyhemoglobin Sodium 134 L D Potassium Chloride 97.6 L Carbon Dioxide BUN Creatinine 1.7 H Glucose POC Glucose Random Insulin C-Peptide Lactic Acid Calcium 6.3 L Ionized Calcium Phosphorus Magnesium AST 203 H ALT 81 H Alkaline Phosphatase Lactate Dehydrogenase NT-Pro-B Natriuret Pep Total Protein 3.9 L Albumin 2.3 L Arterial Blood Glucose 111 H Arterial Blood Ionized Calcium 3.5 L Urine WBC (Auto) Vancomycin Trough Phenytoin Crossmatch 10/04/20 10/04/20 10/04/20 10:00 10:00 10:14 WBC RBC Hgb Hct MCV MCH MCHC RDW Plt Count Lymph % (Auto) Carter % (Auto) Lymph # (Auto) Carter # (Auto) Baso # (Auto) Seg Neutrophils % Seg Neuts % (Manual) Lymphocytes % (Manual) Monocytes % (Manual) Nucleated RBC % Seg Neutrophils # Seg Neutrophils # Man Lymphocytes # (Manual) Monocytes # (Manual) PT INR APTT Fibrinogen D-Dimer > 87313 H ABG pH POC ABG pCO2 POC ABG pO2 ABG pO2 ABG HCO3 ABG Base Excess ABG Hemoglobin ABG Oxyhemoglobin ABG Sodium ABG Potassium ABG Chloride ABG Glucose VBG pH Oxyhemoglobin Carboxyhemoglobin Sodium Potassium Chloride Carbon Dioxide BUN Creatinine Glucose POC Glucose Random Insulin C-Peptide Lactic Acid 3.90 H* Calcium Ionized Calcium Phosphorus Magnesium AST ALT Alkaline Phosphatase Lactate Dehydrogenase NT-Pro-B Natriuret Pep 2788 H Total Protein Albumin Arterial Blood Glucose Arterial Blood Ionized Calcium Urine WBC (Auto) Vancomycin Trough Phenytoin Crossmatch 10/04/20 10/04/20 10/04/20 14:00 14:00 18:00 WBC 15.7 H RBC 3.17 L Hgb 9.3 L 9.6 L Hct 27.2 L 28.0 L MCV MCH MCHC RDW 16.9 H Plt Count 41 L Lymph % (Auto) 8.6 L Carter % (Auto) Lymph # (Auto) Carter # (Auto) 0.9 H Baso # (Auto) Seg Neutrophils % 85.4 H Seg Neuts % (Manual) Lymphocytes % (Manual) Monocytes % (Manual) Nucleated RBC % Seg Neutrophils # 13.4 H Seg Neutrophils # Man Lymphocytes # (Manual) Monocytes # (Manual) PT INR APTT Fibrinogen D-Dimer ABG pH POC ABG pCO2 POC ABG pO2 ABG pO2 ABG HCO3 ABG Base Excess ABG Hemoglobin ABG Oxyhemoglobin ABG Sodium ABG Potassium ABG Chloride ABG Glucose VBG pH Oxyhemoglobin Carboxyhemoglobin Sodium 133 L Potassium Chloride 96.4 L Carbon Dioxide BUN 18 H Creatinine 1.7 H Glucose POC Glucose Random Insulin C-Peptide Lactic Acid Calcium 6.3 L Ionized Calcium Phosphorus Magnesium AST ALT Alkaline Phosphatase Lactate Dehydrogenase NT-Pro-B Natriuret Pep Total Protein Albumin Arterial Blood Glucose Arterial Blood Ionized Calcium Urine WBC (Auto) Vancomycin Trough Phenytoin Crossmatch 10/04/20 10/04/20 10/05/20 18:00 22:00 05:00 WBC 17.6 H RBC 3.34 L Hgb 9.9 L Hct 29.4 L MCV MCH MCHC RDW 17.1 H Plt Count 56 L Lymph % (Auto) 8.5 L Carter % (Auto) Lymph # (Auto) Carter # (Auto) 1.0 H Baso # (Auto) Seg Neutrophils % 85.1 H Seg Neuts % (Manual) Lymphocytes % (Manual) Monocytes % (Manual) Nucleated RBC % Seg Neutrophils # 15.0 H Seg Neutrophils # Man Lymphocytes # (Manual) Monocytes # (Manual) PT INR APTT Fibrinogen D-Dimer ABG pH POC ABG pCO2 POC ABG pO2 ABG pO2 ABG HCO3 ABG Base Excess ABG Hemoglobin ABG Oxyhemoglobin ABG Sodium ABG Potassium ABG Chloride ABG Glucose VBG pH Oxyhemoglobin Carboxyhemoglobin Sodium 136 L Potassium Chloride Carbon Dioxide BUN 18 H Creatinine 1.7 H Glucose POC Glucose Random Insulin C-Peptide Lactic Acid 2.30 H* Calcium 6.6 L Ionized Calcium Phosphorus Magnesium AST ALT Alkaline Phosphatase Lactate Dehydrogenase NT-Pro-B Natriuret Pep Total Protein Albumin Arterial Blood Glucose Arterial Blood Ionized Calcium Urine WBC (Auto) Vancomycin Trough Phenytoin Crossmatch 10/05/20 10/05/20 10/05/20 05:00 05:00 05:03 WBC RBC Hgb Hct MCV MCH MCHC RDW Plt Count Lymph % (Auto) Carter % (Auto) Lymph # (Auto) Carter # (Auto) Baso # (Auto) Seg Neutrophils % Seg Neuts % (Manual) Lymphocytes % (Manual) Monocytes % (Manual) Nucleated RBC % Seg Neutrophils # Seg Neutrophils # Man Lymphocytes # (Manual) Monocytes # (Manual) PT INR APTT Fibrinogen D-Dimer ABG pH 7.458 H POC ABG pCO2 POC ABG pO2 ABG pO2 74.3 L ABG HCO3 27.5 H ABG Base Excess 3.4 H ABG Hemoglobin 10.0 L ABG Oxyhemoglobin ABG Sodium ABG Potassium ABG Chloride ABG Glucose VBG pH Oxyhemoglobin 94.9 L Carboxyhemoglobin Sodium Potassium Chloride Carbon Dioxide BUN 19 H Creatinine 1.8 H Glucose POC Glucose Random Insulin C-Peptide Lactic Acid Calcium 6.8 L Ionized Calcium 3.9 L Phosphorus Magnesium AST 225 H ALT 85 H Alkaline Phosphatase Lactate Dehydrogenase NT-Pro-B Natriuret Pep Total Protein 4.5 L Albumin 2.7 L Arterial Blood Glucose Arterial Blood Ionized Calcium Urine WBC (Auto) Vancomycin Trough Phenytoin Crossmatch 10/05/20 10/05/20 10/05/20 10:10 15:00 19:40 WBC RBC Hgb Hct MCV MCH MCHC RDW Plt Count Lymph % (Auto) Carter % (Auto) Lymph # (Auto) Carter # (Auto) Baso # (Auto) Seg Neutrophils % Seg Neuts % (Manual) Lymphocytes % (Manual) Monocytes % (Manual) Nucleated RBC % Seg Neutrophils # Seg Neutrophils # Man Lymphocytes # (Manual) Monocytes # (Manual) PT INR APTT Fibrinogen D-Dimer ABG pH POC ABG pCO2 POC ABG pO2 ABG pO2 ABG HCO3 ABG Base Excess ABG Hemoglobin ABG Oxyhemoglobin ABG Sodium ABG Potassium ABG Chloride ABG Glucose VBG pH Oxyhemoglobin Carboxyhemoglobin Sodium Potassium 3.5 L Chloride Carbon Dioxide 31 H 32 H BUN 19 H 19 H Creatinine 1.8 H 1.8 H Glucose POC Glucose Random Insulin C-Peptide Lactic Acid Calcium 7.0 L 7.2 L Ionized Calcium Phosphorus Magnesium 2.90 H AST ALT Alkaline Phosphatase Lactate Dehydrogenase NT-Pro-B Natriuret Pep Total Protein Albumin Arterial Blood Glucose Arterial Blood Ionized Calcium Urine WBC (Auto) Vancomycin Trough Phenytoin Crossmatch 10/06/20 10/06/20 10/06/20 01:05 03:12 04:00 WBC 17.1 H RBC 3.47 L Hgb Hct MCV MCH MCHC RDW 17.4 H Plt Count 82 L Lymph % (Auto) 8.3 L Carter % (Auto) Lymph # (Auto) Carter # (Auto) 1.1 H Baso # (Auto) Seg Neutrophils % 83.8 H Seg Neuts % (Manual) Lymphocytes % (Manual) Monocytes % (Manual) Nucleated RBC % Seg Neutrophils # 14.3 H Seg Neutrophils # Man Lymphocytes # (Manual) Monocytes # (Manual) PT INR APTT Fibrinogen D-Dimer ABG pH 7.474 H POC ABG pCO2 POC ABG pO2 129.5 H ABG pO2 ABG HCO3 ABG Base Excess ABG Hemoglobin 11.4 L ABG Oxyhemoglobin ABG Sodium 131.8 L ABG Potassium ABG Chloride ABG Glucose 103 H VBG pH Oxyhemoglobin Carboxyhemoglobin 0.3 L Sodium Potassium Chloride Carbon Dioxide BUN Creatinine Glucose POC Glucose Random Insulin C-Peptide Lactic Acid Calcium Ionized Calcium Phosphorus Magnesium 3.70 H AST ALT Alkaline Phosphatase Lactate Dehydrogenase NT-Pro-B Natriuret Pep Total Protein Albumin Arterial Blood Glucose 103 H Arterial Blood Ionized Calcium 4.2 L Urine WBC (Auto) Vancomycin Trough Phenytoin Crossmatch 10/06/20 10/06/20 10/06/20 04:00 05:31 08:12 WBC RBC Hgb Hct MCV MCH MCHC RDW Plt Count Lymph % (Auto) Carter % (Auto) Lymph # (Auto) Carter # (Auto) Baso # (Auto) Seg Neutrophils % Seg Neuts % (Manual) Lymphocytes % (Manual) Monocytes % (Manual) Nucleated RBC % Seg Neutrophils # Seg Neutrophils # Man Lymphocytes # (Manual) Monocytes # (Manual) PT INR APTT Fibrinogen D-Dimer ABG pH POC ABG pCO2 POC ABG pO2 ABG pO2 ABG HCO3 ABG Base Excess ABG Hemoglobin ABG Oxyhemoglobin ABG Sodium ABG Potassium ABG Chloride ABG Glucose VBG pH Oxyhemoglobin Carboxyhemoglobin Sodium Potassium 3.5 L Chloride Carbon Dioxide BUN 19 H Creatinine 1.8 H Glucose 102 H POC Glucose 116 H Random Insulin C-Peptide Lactic Acid Calcium 7.2 L Ionized Calcium Phosphorus Magnesium 5.40 H AST 307 H ALT 137 H Alkaline Phosphatase Lactate Dehydrogenase NT-Pro-B Natriuret Pep Total Protein 4.5 L Albumin 2.6 L Arterial Blood Glucose Arterial Blood Ionized Calcium Urine WBC (Auto) Vancomycin Trough Phenytoin Crossmatch 10/06/20 10/06/20 10/06/20 11:00 11:50 20:13 WBC RBC Hgb Hct MCV MCH MCHC RDW Plt Count Lymph % (Auto) Carter % (Auto) Lymph # (Auto) Carter # (Auto) Baso # (Auto) Seg Neutrophils % Seg Neuts % (Manual) Lymphocytes % (Manual) Monocytes % (Manual) Nucleated RBC % Seg Neutrophils # Seg Neutrophils # Man Lymphocytes # (Manual) Monocytes # (Manual) PT INR APTT Fibrinogen D-Dimer ABG pH POC ABG pCO2 POC ABG pO2 ABG pO2 ABG HCO3 ABG Base Excess ABG Hemoglobin ABG Oxyhemoglobin ABG Sodium ABG Potassium ABG Chloride ABG Glucose VBG pH Oxyhemoglobin Carboxyhemoglobin Sodium Potassium Chloride Carbon Dioxide BUN Creatinine Glucose POC Glucose 106 H Random Insulin C-Peptide Lactic Acid Calcium Ionized Calcium Phosphorus Magnesium 6.50 H 6.20 H AST ALT Alkaline Phosphatase Lactate Dehydrogenase NT-Pro-B Natriuret Pep Total Protein Albumin Arterial Blood Glucose Arterial Blood Ionized Calcium Urine WBC (Auto) Vancomycin Trough Phenytoin Crossmatch 10/06/20 10/06/20 10/06/20 20:17 22:29 23:57 WBC RBC Hgb Hct MCV MCH MCHC RDW Plt Count Lymph % (Auto) Carter % (Auto) Lymph # (Auto) Carter # (Auto) Baso # (Auto) Seg Neutrophils % Seg Neuts % (Manual) Lymphocytes % (Manual) Monocytes % (Manual) Nucleated RBC % Seg Neutrophils # Seg Neutrophils # Man Lymphocytes # (Manual) Monocytes # (Manual) PT INR APTT Fibrinogen D-Dimer ABG pH POC ABG pCO2 POC ABG pO2 ABG pO2 ABG HCO3 ABG Base Excess ABG Hemoglobin ABG Oxyhemoglobin ABG Sodium ABG Potassium ABG Chloride ABG Glucose VBG pH Oxyhemoglobin Carboxyhemoglobin Sodium Potassium Chloride Carbon Dioxide BUN Creatinine Glucose POC Glucose 112 H 126 H 133 H Random Insulin C-Peptide Lactic Acid Calcium Ionized Calcium Phosphorus Magnesium AST ALT Alkaline Phosphatase Lactate Dehydrogenase NT-Pro-B Natriuret Pep Total Protein Albumin Arterial Blood Glucose Arterial Blood Ionized Calcium Urine WBC (Auto) Vancomycin Trough Phenytoin Crossmatch 10/07/20 10/07/20 10/07/20 00:35 02:22 03:16 WBC RBC Hgb Hct MCV MCH MCHC RDW Plt Count Lymph % (Auto) Carter % (Auto) Lymph # (Auto) Carter # (Auto) Baso # (Auto) Seg Neutrophils % Seg Neuts % (Manual) Lymphocytes % (Manual) Monocytes % (Manual) Nucleated RBC % Seg Neutrophils # Seg Neutrophils # Man Lymphocytes # (Manual) Monocytes # (Manual) PT INR APTT Fibrinogen D-Dimer ABG pH POC ABG pCO2 POC ABG pO2 ABG pO2 ABG HCO3 ABG Base Excess ABG Hemoglobin 11.6 L ABG Oxyhemoglobin ABG Sodium ABG Potassium ABG Chloride ABG Glucose 156 H VBG pH Oxyhemoglobin Carboxyhemoglobin 0.3 L Sodium Potassium Chloride Carbon Dioxide BUN Creatinine Glucose POC Glucose 124 H Random Insulin C-Peptide Lactic Acid Calcium Ionized Calcium Phosphorus Magnesium 5.90 H AST ALT Alkaline Phosphatase Lactate Dehydrogenase NT-Pro-B Natriuret Pep Total Protein Albumin Arterial Blood Glucose 156 H Arterial Blood Ionized Calcium 4.2 L Urine WBC (Auto) Vancomycin Trough Phenytoin Crossmatch 10/07/20 10/07/20 10/07/20 04:06 05:45 07:05 WBC 19.2 H RBC 3.57 L Hgb Hct MCV MCH MCHC 35 H RDW 17.1 H Plt Count 129 L Lymph % (Auto) Carter % (Auto) Lymph # (Auto) Carter # (Auto) Baso # (Auto) Seg Neutrophils % Seg Neuts % (Manual) 94.0 H Lymphocytes % (Manual) 6.0 L Monocytes % (Manual) Nucleated RBC % Seg Neutrophils # Seg Neutrophils # Man 18.0 H Lymphocytes # (Manual) Monocytes # (Manual) PT INR APTT Fibrinogen D-Dimer ABG pH POC ABG pCO2 POC ABG pO2 ABG pO2 ABG HCO3 ABG Base Excess ABG Hemoglobin ABG Oxyhemoglobin ABG Sodium ABG Potassium ABG Chloride ABG Glucose VBG pH Oxyhemoglobin Carboxyhemoglobin Sodium Potassium Chloride Carbon Dioxide BUN Creatinine Glucose POC Glucose 135 H 149 H Random Insulin C-Peptide Lactic Acid Calcium Ionized Calcium Phosphorus Magnesium AST ALT Alkaline Phosphatase Lactate Dehydrogenase NT-Pro-B Natriuret Pep Total Protein Albumin Arterial Blood Glucose Arterial Blood Ionized Calcium Urine WBC (Auto) Vancomycin Trough Phenytoin Crossmatch 10/07/20 10/07/20 10/07/20 07:05 07:05 12:21 WBC RBC Hgb Hct MCV MCH MCHC RDW Plt Count Lymph % (Auto) Carter % (Auto) Lymph # (Auto) Carter # (Auto) Baso # (Auto) Seg Neutrophils % Seg Neuts % (Manual) Lymphocytes % (Manual) Monocytes % (Manual) Nucleated RBC % Seg Neutrophils # Seg Neutrophils # Man Lymphocytes # (Manual) Monocytes # (Manual) PT INR APTT Fibrinogen D-Dimer ABG pH POC ABG pCO2 POC ABG pO2 ABG pO2 ABG HCO3 ABG Base Excess ABG Hemoglobin ABG Oxyhemoglobin ABG Sodium ABG Potassium ABG Chloride ABG Glucose VBG pH Oxyhemoglobin Carboxyhemoglobin Sodium Potassium Chloride Carbon Dioxide BUN 21 H Creatinine 1.7 H Glucose 171 H POC Glucose 124 H Random Insulin C-Peptide Lactic Acid Calcium 7.4 L Ionized Calcium Phosphorus Magnesium 6.10 H AST 245 H ALT 147 H Alkaline Phosphatase Lactate Dehydrogenase NT-Pro-B Natriuret Pep Total Protein 5.3 L Albumin 2.8 L Arterial Blood Glucose Arterial Blood Ionized Calcium Urine WBC (Auto) Vancomycin Trough Phenytoin Crossmatch 10/07/20 10/07/20 10/07/20 19:52 21:00 21:50 WBC RBC Hgb Hct MCV MCH MCHC RDW Plt Count Lymph % (Auto) Carter % (Auto) Lymph # (Auto) Carter # (Auto) Baso # (Auto) Seg Neutrophils % Seg Neuts % (Manual) Lymphocytes % (Manual) Monocytes % (Manual) Nucleated RBC % Seg Neutrophils # Seg Neutrophils # Man Lymphocytes # (Manual) Monocytes # (Manual) PT INR APTT Fibrinogen D-Dimer ABG pH POC ABG pCO2 POC ABG pO2 ABG pO2 ABG HCO3 ABG Base Excess ABG Hemoglobin ABG Oxyhemoglobin ABG Sodium ABG Potassium ABG Chloride ABG Glucose VBG pH Oxyhemoglobin Carboxyhemoglobin Sodium Potassium Chloride Carbon Dioxide BUN Creatinine Glucose POC Glucose 193 H 138 H Random Insulin C-Peptide Lactic Acid Calcium Ionized Calcium 4.4 L Phosphorus Magnesium AST ALT Alkaline Phosphatase Lactate Dehydrogenase NT-Pro-B Natriuret Pep Total Protein Albumin Arterial Blood Glucose Arterial Blood Ionized Calcium Urine WBC (Auto) Vancomycin Trough Phenytoin Crossmatch 10/07/20 10/08/20 10/08/20 23:41 04:20 05:30 WBC RBC Hgb Hct MCV MCH MCHC RDW Plt Count Lymph % (Auto) Carter % (Auto) Lymph # (Auto) Carter # (Auto) Baso # (Auto) Seg Neutrophils % Seg Neuts % (Manual) Lymphocytes % (Manual) Monocytes % (Manual) Nucleated RBC % Seg Neutrophils # Seg Neutrophils # Man Lymphocytes # (Manual) Monocytes # (Manual) PT INR APTT Fibrinogen D-Dimer ABG pH 7.467 H POC ABG pCO2 POC ABG pO2 189.8 H ABG pO2 ABG HCO3 ABG Base Excess ABG Hemoglobin 10.8 L ABG Oxyhemoglobin ABG Sodium ABG Potassium ABG Chloride ABG Glucose 133 H VBG pH Oxyhemoglobin Carboxyhemoglobin Sodium Potassium Chloride Carbon Dioxide BUN Creatinine Glucose POC Glucose 118 H 114 H Random Insulin C-Peptide Lactic Acid Calcium Ionized Calcium Phosphorus Magnesium AST ALT Alkaline Phosphatase Lactate Dehydrogenase NT-Pro-B Natriuret Pep Total Protein Albumin Arterial Blood Glucose 133 H Arterial Blood Ionized Calcium 4.2 L Urine WBC (Auto) Vancomycin Trough Phenytoin Crossmatch 10/08/20 10/08/20 10/08/20 05:43 06:42 06:42 WBC 23.6 H RBC 3.54 L Hgb Hct MCV MCH MCHC RDW 17.8 H Plt Count Lymph % (Auto) Carter % (Auto) Lymph # (Auto) Carter # (Auto) Baso # (Auto) Seg Neutrophils % Seg Neuts % (Manual) 93.0 H Lymphocytes % (Manual) 3.0 L Monocytes % (Manual) Nucleated RBC % 1.0 H Seg Neutrophils # Seg Neutrophils # Man 21.9 H Lymphocytes # (Manual) 0.7 L Monocytes # (Manual) 0.9 H PT INR APTT Fibrinogen D-Dimer ABG pH POC ABG pCO2 POC ABG pO2 ABG pO2 ABG HCO3 ABG Base Excess ABG Hemoglobin ABG Oxyhemoglobin ABG Sodium ABG Potassium ABG Chloride ABG Glucose VBG pH Oxyhemoglobin Carboxyhemoglobin Sodium Potassium Chloride Carbon Dioxide BUN 28 H Creatinine 1.6 H Glucose 141 H POC Glucose 126 H Random Insulin C-Peptide Lactic Acid Calcium 7.6 L Ionized Calcium Phosphorus Magnesium AST 162 H ALT 103 H Alkaline Phosphatase Lactate Dehydrogenase NT-Pro-B Natriuret Pep Total Protein 5.4 L Albumin 2.7 L Arterial Blood Glucose Arterial Blood Ionized Calcium Urine WBC (Auto) Vancomycin Trough Phenytoin Crossmatch 10/08/20 10/08/20 10/08/20 11:20 16:05 20:14 WBC RBC Hgb Hct MCV MCH MCHC RDW Plt Count Lymph % (Auto) Carter % (Auto) Lymph # (Auto) Carter # (Auto) Baso # (Auto) Seg Neutrophils % Seg Neuts % (Manual) Lymphocytes % (Manual) Monocytes % (Manual) Nucleated RBC % Seg Neutrophils # Seg Neutrophils # Man Lymphocytes # (Manual) Monocytes # (Manual) PT INR APTT Fibrinogen D-Dimer ABG pH POC ABG pCO2 POC ABG pO2 ABG pO2 ABG HCO3 ABG Base Excess ABG Hemoglobin ABG Oxyhemoglobin ABG Sodium ABG Potassium ABG Chloride ABG Glucose VBG pH Oxyhemoglobin Carboxyhemoglobin Sodium Potassium Chloride Carbon Dioxide BUN Creatinine Glucose POC Glucose 127 H 172 H 147 H Random Insulin C-Peptide Lactic Acid Calcium Ionized Calcium Phosphorus Magnesium AST ALT Alkaline Phosphatase Lactate Dehydrogenase NT-Pro-B Natriuret Pep Total Protein Albumin Arterial Blood Glucose Arterial Blood Ionized Calcium Urine WBC (Auto) Vancomycin Trough Phenytoin Crossmatch 10/08/20 10/08/20 10/09/20 21:27 23:24 02:10 WBC RBC Hgb Hct MCV MCH MCHC RDW Plt Count Lymph % (Auto) Carter % (Auto) Lymph # (Auto) Carter # (Auto) Baso # (Auto) Seg Neutrophils % Seg Neuts % (Manual) Lymphocytes % (Manual) Monocytes % (Manual) Nucleated RBC % Seg Neutrophils # Seg Neutrophils # Man Lymphocytes # (Manual) Monocytes # (Manual) PT INR APTT Fibrinogen D-Dimer ABG pH POC ABG pCO2 POC ABG pO2 ABG pO2 ABG HCO3 ABG Base Excess ABG Hemoglobin ABG Oxyhemoglobin ABG Sodium ABG Potassium ABG Chloride ABG Glucose VBG pH Oxyhemoglobin Carboxyhemoglobin Sodium Potassium Chloride Carbon Dioxide BUN Creatinine Glucose POC Glucose 140 H 135 H 111 H Random Insulin C-Peptide Lactic Acid Calcium Ionized Calcium Phosphorus Magnesium AST ALT Alkaline Phosphatase Lactate Dehydrogenase NT-Pro-B Natriuret Pep Total Protein Albumin Arterial Blood Glucose Arterial Blood Ionized Calcium Urine WBC (Auto) Vancomycin Trough Phenytoin Crossmatch 10/09/20 10/09/20 10/09/20 03:44 04:39 05:46 WBC 19.7 H RBC 3.51 L Hgb Hct MCV MCH MCHC RDW 17.7 H Plt Count Lymph % (Auto) Carter % (Auto) Lymph # (Auto) Carter # (Auto) Baso # (Auto) Seg Neutrophils % Seg Neuts % (Manual) 86.0 H Lymphocytes % (Manual) 4.0 L Monocytes % (Manual) 9.0 H Nucleated RBC % Seg Neutrophils # Seg Neutrophils # Man 16.9 H Lymphocytes # (Manual) 0.8 L Monocytes # (Manual) 1.8 H PT INR APTT Fibrinogen D-Dimer ABG pH 7.513 H POC ABG pCO2 POC ABG pO2 33.6 L ABG pO2 ABG HCO3 ABG Base Excess ABG Hemoglobin 11.1 L ABG Oxyhemoglobin 70.2 L ABG Sodium ABG Potassium 3.2 L ABG Chloride 108.0 H ABG Glucose 108 H VBG pH Oxyhemoglobin Carboxyhemoglobin Sodium Potassium Chloride Carbon Dioxide BUN Creatinine Glucose POC Glucose 109 H Random Insulin C-Peptide Lactic Acid Calcium Ionized Calcium Phosphorus Magnesium AST ALT Alkaline Phosphatase Lactate Dehydrogenase NT-Pro-B Natriuret Pep Total Protein Albumin Arterial Blood Glucose 108 H Arterial Blood Ionized Calcium 4.3 L Urine WBC (Auto) Vancomycin Trough Phenytoin Crossmatch 10/09/20 10/10/20 10/10/20 05:46 04:00 04:00 WBC 18.4 H RBC Hgb Hct MCV MCH MCHC RDW 17.5 H Plt Count Lymph % (Auto) 9.8 L Carter % (Auto) 8.8 H Lymph # (Auto) Carter # (Auto) 1.6 H Baso # (Auto) Seg Neutrophils % 80.0 H Seg Neuts % (Manual) Lymphocytes % (Manual) Monocytes % (Manual) Nucleated RBC % Seg Neutrophils # 14.7 H Seg Neutrophils # Man Lymphocytes # (Manual) Monocytes # (Manual) PT INR APTT Fibrinogen D-Dimer ABG pH POC ABG pCO2 POC ABG pO2 ABG pO2 ABG HCO3 ABG Base Excess ABG Hemoglobin ABG Oxyhemoglobin ABG Sodium ABG Potassium ABG Chloride ABG Glucose VBG pH Oxyhemoglobin Carboxyhemoglobin Sodium 146 H Potassium 3.2 L 2.9 L* Chloride 108.9 H 112.6 H Carbon Dioxide BUN 34 H 28 H Creatinine 1.4 H 1.3 H Glucose 109 H 101 H POC Glucose Random Insulin C-Peptide Lactic Acid Calcium 7.6 L 7.8 L Ionized Calcium Phosphorus Magnesium AST 137 H 122 H ALT 99 H 81 H Alkaline Phosphatase Lactate Dehydrogenase NT-Pro-B Natriuret Pep Total Protein 5.1 L 5.2 L Albumin 2.6 L 2.7 L Arterial Blood Glucose Arterial Blood Ionized Calcium Urine WBC (Auto) Vancomycin Trough Phenytoin Crossmatch 10/10/20 10/10/20 10/11/20 04:42 09:50 00:44 WBC RBC Hgb Hct MCV MCH MCHC RDW Plt Count Lymph % (Auto) Carter % (Auto) Lymph # (Auto) Carter # (Auto) Baso # (Auto) Seg Neutrophils % Seg Neuts % (Manual) Lymphocytes % (Manual) Monocytes % (Manual) Nucleated RBC % Seg Neutrophils # Seg Neutrophils # Man Lymphocytes # (Manual) Monocytes # (Manual) PT INR APTT Fibrinogen D-Dimer ABG pH 7.534 H POC ABG pCO2 POC ABG pO2 ABG pO2 95.2 H ABG HCO3 ABG Base Excess ABG Hemoglobin 11.3 L ABG Oxyhemoglobin ABG Sodium ABG Potassium ABG Chloride ABG Glucose VBG pH Oxyhemoglobin Carboxyhemoglobin Sodium Potassium Chloride Carbon Dioxide BUN Creatinine Glucose POC Glucose 109 H 106 H Random Insulin C-Peptide Lactic Acid Calcium Ionized Calcium Phosphorus Magnesium AST ALT Alkaline Phosphatase Lactate Dehydrogenase NT-Pro-B Natriuret Pep Total Protein Albumin Arterial Blood Glucose Arterial Blood Ionized Calcium Urine WBC (Auto) Vancomycin Trough Phenytoin Crossmatch 10/11/20 10/11/20 10/11/20 04:00 04:00 06:08 WBC 27.0 H RBC Hgb Hct MCV MCH MCHC RDW 17.7 H Plt Count Lymph % (Auto) 6.3 L Carter % (Auto) Lymph # (Auto) Carter # (Auto) 1.5 H Baso # (Auto) Seg Neutrophils % 87.1 H Seg Neuts % (Manual) Lymphocytes % (Manual) Monocytes % (Manual) Nucleated RBC % Seg Neutrophils # 23.5 H Seg Neutrophils # Man Lymphocytes # (Manual) Monocytes # (Manual) PT INR APTT Fibrinogen D-Dimer ABG pH POC ABG pCO2 POC ABG pO2 ABG pO2 ABG HCO3 ABG Base Excess ABG Hemoglobin ABG Oxyhemoglobin ABG Sodium ABG Potassium ABG Chloride ABG Glucose VBG pH Oxyhemoglobin Carboxyhemoglobin Sodium Potassium 3.2 L Chloride 110.4 H Carbon Dioxide 19 L BUN 22 H Creatinine Glucose 116 H POC Glucose 107 H Random Insulin C-Peptide Lactic Acid Calcium 7.7 L Ionized Calcium Phosphorus Magnesium 1.60 L AST ALT Alkaline Phosphatase Lactate Dehydrogenase NT-Pro-B Natriuret Pep Total Protein Albumin Arterial Blood Glucose Arterial Blood Ionized Calcium Urine WBC (Auto) Vancomycin Trough Phenytoin Crossmatch 10/11/20 10/11/20 10/12/20 11:41 13:26 03:52 WBC RBC Hgb Hct MCV MCH MCHC RDW Plt Count Lymph % (Auto) Carter % (Auto) Lymph # (Auto) Carter # (Auto) Baso # (Auto) Seg Neutrophils % Seg Neuts % (Manual) Lymphocytes % (Manual) Monocytes % (Manual) Nucleated RBC % Seg Neutrophils # Seg Neutrophils # Man Lymphocytes # (Manual) Monocytes # (Manual) PT INR APTT Fibrinogen D-Dimer ABG pH POC ABG pCO2 POC ABG pO2 ABG pO2 ABG HCO3 ABG Base Excess ABG Hemoglobin ABG Oxyhemoglobin ABG Sodium ABG Potassium ABG Chloride ABG Glucose VBG pH Oxyhemoglobin Carboxyhemoglobin Sodium Potassium Chloride Carbon Dioxide BUN Creatinine Glucose POC Glucose 116 H 114 H Random Insulin C-Peptide Lactic Acid Calcium Ionized Calcium Phosphorus Magnesium AST ALT Alkaline Phosphatase Lactate Dehydrogenase NT-Pro-B Natriuret Pep Total Protein Albumin Arterial Blood Glucose Arterial Blood Ionized Calcium Urine WBC (Auto) 24.0 H Vancomycin Trough Phenytoin Crossmatch 10/12/20 10/12/20 10/12/20 04:24 14:47 21:33 WBC RBC Hgb Hct MCV MCH MCHC RDW Plt Count Lymph % (Auto) Carter % (Auto) Lymph # (Auto) Carter # (Auto) Baso # (Auto) Seg Neutrophils % Seg Neuts % (Manual) Lymphocytes % (Manual) Monocytes % (Manual) Nucleated RBC % Seg Neutrophils # Seg Neutrophils # Man Lymphocytes # (Manual) Monocytes # (Manual) PT INR APTT Fibrinogen D-Dimer ABG pH POC ABG pCO2 POC ABG pO2 ABG pO2 ABG HCO3 ABG Base Excess ABG Hemoglobin ABG Oxyhemoglobin ABG Sodium ABG Potassium ABG Chloride ABG Glucose VBG pH Oxyhemoglobin Carboxyhemoglobin Sodium Potassium Chloride 109.9 H Carbon Dioxide 13 L BUN 18 H Creatinine Glucose 119 H POC Glucose 107 H Random Insulin C-Peptide Lactic Acid Calcium 7.6 L Ionized Calcium Phosphorus Magnesium 1.60 L AST ALT Alkaline Phosphatase Lactate Dehydrogenase NT-Pro-B Natriuret Pep Total Protein Albumin Arterial Blood Glucose Arterial Blood Ionized Calcium Urine WBC (Auto) Vancomycin Trough Phenytoin Crossmatch 10/12/20 10/12/20 10/13/20 Unknown Unknown 07:00 WBC 24.3 H RBC 3.38 L Hgb 9.8 L Hct MCV MCH MCHC RDW 18.7 H Plt Count Lymph % (Auto) Carter % (Auto) Lymph # (Auto) Carter # (Auto) Baso # (Auto) Seg Neutrophils % Seg Neuts % (Manual) 93.5 H Lymphocytes % (Manual) 4.5 L Monocytes % (Manual) Nucleated RBC % Seg Neutrophils # Seg Neutrophils # Man 22.7 H Lymphocytes # (Manual) 1.1 L Monocytes # (Manual) PT INR APTT Fibrinogen D-Dimer ABG pH POC ABG pCO2 POC ABG pO2 ABG pO2 ABG HCO3 ABG Base Excess ABG Hemoglobin ABG Oxyhemoglobin ABG Sodium ABG Potassium ABG Chloride ABG Glucose VBG pH Oxyhemoglobin Carboxyhemoglobin Sodium 135 L D Potassium 3.1 L Chloride Carbon Dioxide 17 L BUN Creatinine Glucose 510 H* POC Glucose Random Insulin C-Peptide Lactic Acid Calcium 7.2 L Ionized Calcium Phosphorus Magnesium AST ALT Alkaline Phosphatase Lactate Dehydrogenase NT-Pro-B Natriuret Pep Total Protein Albumin Arterial Blood Glucose Arterial Blood Ionized Calcium Urine WBC (Auto) Vancomycin Trough Phenytoin 5.7 L Crossmatch 10/13/20 10/13/20 10/13/20 07:00 07:00 07:18 WBC 23.6 H RBC 3.26 L Hgb 9.4 L Hct 28.7 L MCV MCH MCHC RDW 18.3 H Plt Count Lymph % (Auto) Carter % (Auto) Lymph # (Auto) Carter # (Auto) Baso # (Auto) Seg Neutrophils % Seg Neuts % (Manual) Lymphocytes % (Manual) Monocytes % (Manual) Nucleated RBC % Seg Neutrophils # Seg Neutrophils # Man Lymphocytes # (Manual) Monocytes # (Manual) PT INR APTT Fibrinogen D-Dimer ABG pH 7.473 H POC ABG pCO2 20.7 L POC ABG pO2 137.9 H ABG pO2 ABG HCO3 ABG Base Excess ABG Hemoglobin 11.2 L ABG Oxyhemoglobin 98.3 H ABG Sodium 135.9 L ABG Potassium ABG Chloride 111.0 H ABG Glucose 109 H VBG pH Oxyhemoglobin Carboxyhemoglobin 0.3 L Sodium 135 L Potassium 3.5 L Chloride 109.1 H Carbon Dioxide 18 L BUN Creatinine Glucose POC Glucose Random Insulin C-Peptide Lactic Acid Calcium 7.3 L Ionized Calcium Phosphorus Magnesium 1.60 L AST ALT Alkaline Phosphatase Lactate Dehydrogenase NT-Pro-B Natriuret Pep Total Protein Albumin Arterial Blood Glucose 109 H Arterial Blood Ionized Calcium Urine WBC (Auto) Vancomycin Trough Phenytoin Crossmatch 10/14/20 10/14/20 10/15/20 04:00 04:00 05:50 WBC 28.6 H 23.2 H RBC 3.61 L 3.43 L Hgb 9.9 L Hct 30.0 L MCV MCH MCHC RDW 18.3 H 18.2 H Plt Count Lymph % (Auto) Carter % (Auto) Lymph # (Auto) Carter # (Auto) Baso # (Auto) Seg Neutrophils % Seg Neuts % (Manual) 88.0 H 90.0 H Lymphocytes % (Manual) 5.0 L 4.0 L Monocytes % (Manual) Nucleated RBC % Seg Neutrophils # Seg Neutrophils # Man 25.2 H 20.9 H Lymphocytes # (Manual) 0.9 L Monocytes # (Manual) 1.4 H 0.9 H PT INR APTT Fibrinogen D-Dimer ABG pH POC ABG pCO2 POC ABG pO2 ABG pO2 ABG HCO3 ABG Base Excess ABG Hemoglobin ABG Oxyhemoglobin ABG Sodium ABG Potassium ABG Chloride ABG Glucose VBG pH Oxyhemoglobin Carboxyhemoglobin Sodium Potassium Chloride 109.9 H Carbon Dioxide 17 L BUN Creatinine Glucose POC Glucose Random Insulin C-Peptide Lactic Acid Calcium Ionized Calcium Phosphorus Magnesium AST ALT Alkaline Phosphatase Lactate Dehydrogenase NT-Pro-B Natriuret Pep Total Protein Albumin Arterial Blood Glucose Arterial Blood Ionized Calcium Urine WBC (Auto) Vancomycin Trough Phenytoin Crossmatch 10/15/20 10/16/20 10/17/20 05:50 11:57 04:57 WBC 15.2 H RBC 3.43 L Hgb Hct MCV MCH MCHC RDW 18.1 H Plt Count Lymph % (Auto) Carter % (Auto) Lymph # (Auto) Carter # (Auto) Baso # (Auto) Seg Neutrophils % Seg Neuts % (Manual) Lymphocytes % (Manual) Monocytes % (Manual) Nucleated RBC % Seg Neutrophils # Seg Neutrophils # Man Lymphocytes # (Manual) Monocytes # (Manual) PT INR APTT Fibrinogen D-Dimer ABG pH POC ABG pCO2 POC ABG pO2 ABG pO2 ABG HCO3 ABG Base Excess ABG Hemoglobin ABG Oxyhemoglobin ABG Sodium ABG Potassium ABG Chloride ABG Glucose VBG pH Oxyhemoglobin Carboxyhemoglobin Sodium Potassium Chloride 110.3 H Carbon Dioxide 18 L BUN Creatinine Glucose 105 H POC Glucose 111 H Random Insulin C-Peptide Lactic Acid Calcium 8.3 L Ionized Calcium Phosphorus Magnesium AST ALT Alkaline Phosphatase Lactate Dehydrogenase NT-Pro-B Natriuret Pep Total Protein Albumin Arterial Blood Glucose Arterial Blood Ionized Calcium Urine WBC (Auto) Vancomycin Trough Phenytoin Crossmatch 10/17/20 10/17/20 10/18/20 05:25 21:16 01:31 WBC RBC Hgb Hct MCV MCH MCHC RDW Plt Count Lymph % (Auto) Carter % (Auto) Lymph # (Auto) Carter # (Auto) Baso # (Auto) Seg Neutrophils % Seg Neuts % (Manual) Lymphocytes % (Manual) Monocytes % (Manual) Nucleated RBC % Seg Neutrophils # Seg Neutrophils # Man Lymphocytes # (Manual) Monocytes # (Manual) PT INR APTT Fibrinogen D-Dimer ABG pH POC ABG pCO2 POC ABG pO2 ABG pO2 ABG HCO3 ABG Base Excess ABG Hemoglobin ABG Oxyhemoglobin ABG Sodium ABG Potassium ABG Chloride ABG Glucose VBG pH Oxyhemoglobin Carboxyhemoglobin Sodium Potassium Chloride Carbon Dioxide BUN Creatinine Glucose POC Glucose 107 H 106 H 119 H Random Insulin C-Peptide Lactic Acid Calcium Ionized Calcium Phosphorus Magnesium AST ALT Alkaline Phosphatase Lactate Dehydrogenase NT-Pro-B Natriuret Pep Total Protein Albumin Arterial Blood Glucose Arterial Blood Ionized Calcium Urine WBC (Auto) Vancomycin Trough Phenytoin Crossmatch 10/18/20 10/18/20 10/19/20 05:45 11:23 01:14 WBC RBC Hgb Hct MCV MCH MCHC RDW Plt Count Lymph % (Auto) Carter % (Auto) Lymph # (Auto) Carter # (Auto) Baso # (Auto) Seg Neutrophils % Seg Neuts % (Manual) Lymphocytes % (Manual) Monocytes % (Manual) Nucleated RBC % Seg Neutrophils # Seg Neutrophils # Man Lymphocytes # (Manual) Monocytes # (Manual) PT INR APTT Fibrinogen D-Dimer ABG pH POC ABG pCO2 POC ABG pO2 ABG pO2 ABG HCO3 ABG Base Excess ABG Hemoglobin ABG Oxyhemoglobin ABG Sodium ABG Potassium ABG Chloride ABG Glucose VBG pH Oxyhemoglobin Carboxyhemoglobin Sodium Potassium Chloride Carbon Dioxide BUN Creatinine Glucose POC Glucose 106 H 115 H 108 H Random Insulin C-Peptide Lactic Acid Calcium Ionized Calcium Phosphorus Magnesium AST ALT Alkaline Phosphatase Lactate Dehydrogenase NT-Pro-B Natriuret Pep Total Protein Albumin Arterial Blood Glucose Arterial Blood Ionized Calcium Urine WBC (Auto) Vancomycin Trough Phenytoin Crossmatch 10/19/20 10/20/20 10/20/20 09:57 05:40 07:59 WBC RBC Hgb Hct MCV MCH MCHC RDW Plt Count Lymph % (Auto) Carter % (Auto) Lymph # (Auto) Carter # (Auto) Baso # (Auto) Seg Neutrophils % Seg Neuts % (Manual) Lymphocytes % (Manual) Monocytes % (Manual) Nucleated RBC % Seg Neutrophils # Seg Neutrophils # Man Lymphocytes # (Manual) Monocytes # (Manual) PT INR APTT Fibrinogen D-Dimer ABG pH POC ABG pCO2 POC ABG pO2 ABG pO2 ABG HCO3 ABG Base Excess ABG Hemoglobin ABG Oxyhemoglobin ABG Sodium ABG Potassium ABG Chloride ABG Glucose VBG pH Oxyhemoglobin Carboxyhemoglobin Sodium Potassium Chloride Carbon Dioxide BUN Creatinine Glucose 106 H POC Glucose 122 H 109 H Random Insulin C-Peptide Lactic Acid Calcium Ionized Calcium Phosphorus Magnesium AST ALT Alkaline Phosphatase Lactate Dehydrogenase NT-Pro-B Natriuret Pep Total Protein Albumin Arterial Blood Glucose Arterial Blood Ionized Calcium Urine WBC (Auto) Vancomycin Trough Phenytoin Crossmatch 10/20/20 10/20/20 10/21/20 16:52 16:52 13:54 WBC 18.8 H 17.0 H RBC Hgb Hct MCV MCH MCHC RDW 17.7 H 17.8 H Plt Count 547 H 544 H Lymph % (Auto) 11.2 L Carter % (Auto) 8.1 H Lymph # (Auto) Carter # (Auto) 1.5 H Baso # (Auto) 0.2 H Seg Neutrophils % 78.8 H Seg Neuts % (Manual) Lymphocytes % (Manual) Monocytes % (Manual) Nucleated RBC % Seg Neutrophils # 14.8 H Seg Neutrophils # Man Lymphocytes # (Manual) Monocytes # (Manual) PT INR APTT Fibrinogen D-Dimer ABG pH POC ABG pCO2 POC ABG pO2 ABG pO2 ABG HCO3 ABG Base Excess ABG Hemoglobin ABG Oxyhemoglobin ABG Sodium ABG Potassium ABG Chloride ABG Glucose VBG pH Oxyhemoglobin Carboxyhemoglobin Sodium Potassium Chloride Carbon Dioxide BUN Creatinine Glucose POC Glucose Random Insulin C-Peptide Lactic Acid Calcium Ionized Calcium Phosphorus Magnesium AST ALT Alkaline Phosphatase Lactate Dehydrogenase NT-Pro-B Natriuret Pep Total Protein Albumin Arterial Blood Glucose Arterial Blood Ionized Calcium Urine WBC (Auto) Vancomycin Trough 34.5 H Phenytoin Crossmatch 10/21/20 10/22/20 10/23/20 13:54 07:26 05:34 WBC 18.7 H 13.0 H RBC 3.64 L 3.50 L Hgb Hct 30.0 L MCV MCH MCHC 35 H RDW 17.7 H 17.6 H Plt Count 502 H 503 H Lymph % (Auto) Carter % (Auto) Lymph # (Auto) Carter # (Auto) Baso # (Auto) Seg Neutrophils % Seg Neuts % (Manual) Lymphocytes % (Manual) Monocytes % (Manual) Nucleated RBC % Seg Neutrophils # Seg Neutrophils # Man Lymphocytes # (Manual) Monocytes # (Manual) PT INR APTT Fibrinogen D-Dimer ABG pH POC ABG pCO2 POC ABG pO2 ABG pO2 ABG HCO3 ABG Base Excess ABG Hemoglobin ABG Oxyhemoglobin ABG Sodium ABG Potassium ABG Chloride ABG Glucose VBG pH Oxyhemoglobin Carboxyhemoglobin Sodium 136 L Potassium Chloride Carbon Dioxide BUN Creatinine Glucose 120 H POC Glucose Random Insulin C-Peptide Lactic Acid Calcium Ionized Calcium Phosphorus Magnesium AST ALT Alkaline Phosphatase Lactate Dehydrogenase NT-Pro-B Natriuret Pep Total Protein Albumin Arterial Blood Glucose Arterial Blood Ionized Calcium Urine WBC (Auto) Vancomycin Trough Phenytoin Crossmatch 10/23/20 10/26/20 10/27/20 05:34 10:30 07:53 WBC 13.6 H RBC 3.38 L Hgb 10.0 L Hct 28.8 L MCV MCH MCHC 35 H RDW 17.6 H Plt Count Lymph % (Auto) Carter % (Auto) Lymph # (Auto) Carter # (Auto) Baso # (Auto) Seg Neutrophils % Seg Neuts % (Manual) Lymphocytes % (Manual) Monocytes % (Manual) Nucleated RBC % Seg Neutrophils # Seg Neutrophils # Man Lymphocytes # (Manual) Monocytes # (Manual) PT INR APTT Fibrinogen D-Dimer ABG pH 7.459 H POC ABG pCO2 POC ABG pO2 ABG pO2 112.2 H ABG HCO3 ABG Base Excess ABG Hemoglobin ABG Oxyhemoglobin ABG Sodium ABG Potassium ABG Chloride ABG Glucose VBG pH Oxyhemoglobin Carboxyhemoglobin Sodium 135 L Potassium Chloride Carbon Dioxide BUN Creatinine Glucose 105 H POC Glucose Random Insulin C-Peptide Lactic Acid Calcium Ionized Calcium Phosphorus Magnesium AST ALT Alkaline Phosphatase Lactate Dehydrogenase NT-Pro-B Natriuret Pep Total Protein Albumin Arterial Blood Glucose Arterial Blood Ionized Calcium Urine WBC (Auto) Vancomycin Trough Phenytoin Crossmatch 10/27/20 10/27/20 10/28/20 07:53 11:31 05:19 WBC RBC Hgb Hct MCV MCH MCHC RDW Plt Count Lymph % (Auto) Carter % (Auto) Lymph # (Auto) Carter # (Auto) Baso # (Auto) Seg Neutrophils % Seg Neuts % (Manual) Lymphocytes % (Manual) Monocytes % (Manual) Nucleated RBC % Seg Neutrophils # Seg Neutrophils # Man Lymphocytes # (Manual) Monocytes # (Manual) PT INR APTT Fibrinogen D-Dimer ABG pH POC ABG pCO2 POC ABG pO2 ABG pO2 ABG HCO3 ABG Base Excess ABG Hemoglobin ABG Oxyhemoglobin ABG Sodium ABG Potassium ABG Chloride ABG Glucose VBG pH Oxyhemoglobin Carboxyhemoglobin Sodium Potassium Chloride Carbon Dioxide BUN 20 H Creatinine Glucose 112 H POC Glucose 113 H 112 H Random Insulin C-Peptide Lactic Acid Calcium Ionized Calcium Phosphorus Magnesium AST 83 H ALT Alkaline Phosphatase Lactate Dehydrogenase NT-Pro-B Natriuret Pep Total Protein Albumin 3.8 L Arterial Blood Glucose Arterial Blood Ionized Calcium Urine WBC (Auto) Vancomycin Trough Phenytoin Crossmatch 10/29/20 10/29/20 10/29/20 07:56 07:56 11:37 WBC 13.6 H RBC Hgb Hct MCV MCH MCHC RDW 17.0 H Plt Count Lymph % (Auto) Carter % (Auto) Lymph # (Auto) Carter # (Auto) Baso # (Auto) Seg Neutrophils % Seg Neuts % (Manual) 80.0 H Lymphocytes % (Manual) Monocytes % (Manual) Nucleated RBC % Seg Neutrophils # Seg Neutrophils # Man 10.9 H Lymphocytes # (Manual) Monocytes # (Manual) PT INR APTT Fibrinogen D-Dimer ABG pH POC ABG pCO2 POC ABG pO2 ABG pO2 ABG HCO3 ABG Base Excess ABG Hemoglobin ABG Oxyhemoglobin ABG Sodium ABG Potassium ABG Chloride ABG Glucose VBG pH Oxyhemoglobin Carboxyhemoglobin Sodium Potassium Chloride Carbon Dioxide BUN Creatinine Glucose POC Glucose 108 H Random Insulin C-Peptide Lactic Acid Calcium Ionized Calcium Phosphorus 4.70 H Magnesium AST ALT Alkaline Phosphatase Lactate Dehydrogenase NT-Pro-B Natriuret Pep Total Protein Albumin Arterial Blood Glucose Arterial Blood Ionized Calcium Urine WBC (Auto) Vancomycin Trough Phenytoin Crossmatch 10/29/20 10/30/20 10/30/20 13:32 12:11 17:19 WBC RBC Hgb Hct MCV MCH MCHC RDW Plt Count Lymph % (Auto) Carter % (Auto) Lymph # (Auto) Carter # (Auto) Baso # (Auto) Seg Neutrophils % Seg Neuts % (Manual) Lymphocytes % (Manual) Monocytes % (Manual) Nucleated RBC % Seg Neutrophils # Seg Neutrophils # Man Lymphocytes # (Manual) Monocytes # (Manual) PT INR APTT Fibrinogen D-Dimer ABG pH POC ABG pCO2 POC ABG pO2 ABG pO2 ABG HCO3 ABG Base Excess ABG Hemoglobin ABG Oxyhemoglobin ABG Sodium ABG Potassium ABG Chloride ABG Glucose VBG pH Oxyhemoglobin Carboxyhemoglobin Sodium Potassium Chloride Carbon Dioxide BUN Creatinine Glucose POC Glucose 108 H 106 H 107 H Random Insulin C-Peptide Lactic Acid Calcium Ionized Calcium Phosphorus Magnesium AST ALT Alkaline Phosphatase Lactate Dehydrogenase NT-Pro-B Natriuret Pep Total Protein Albumin Arterial Blood Glucose Arterial Blood Ionized Calcium Urine WBC (Auto) Vancomycin Trough Phenytoin Crossmatch 10/31/20 10/31/20 11/01/20 03:20 05:43 04:55 WBC RBC Hgb Hct MCV MCH MCHC RDW Plt Count Lymph % (Auto) Carter % (Auto) Lymph # (Auto) Carter # (Auto) Baso # (Auto) Seg Neutrophils % Seg Neuts % (Manual) Lymphocytes % (Manual) Monocytes % (Manual) Nucleated RBC % Seg Neutrophils # Seg Neutrophils # Man Lymphocytes # (Manual) Monocytes # (Manual) PT INR APTT Fibrinogen D-Dimer ABG pH POC ABG pCO2 POC ABG pO2 ABG pO2 ABG HCO3 ABG Base Excess ABG Hemoglobin ABG Oxyhemoglobin ABG Sodium ABG Potassium ABG Chloride ABG Glucose VBG pH Oxyhemoglobin Carboxyhemoglobin Sodium Potassium Chloride Carbon Dioxide BUN Creatinine Glucose POC Glucose 108 H 115 H 108 H Random Insulin C-Peptide Lactic Acid Calcium Ionized Calcium Phosphorus Magnesium AST ALT Alkaline Phosphatase Lactate Dehydrogenase NT-Pro-B Natriuret Pep Total Protein Albumin Arterial Blood Glucose Arterial Blood Ionized Calcium Urine WBC (Auto) Vancomycin Trough Phenytoin Crossmatch 11/01/20 11/01/20 11/01/20 05:01 16:47 21:36 WBC RBC Hgb Hct MCV MCH MCHC RDW Plt Count Lymph % (Auto) Carter % (Auto) Lymph # (Auto) Carter # (Auto) Baso # (Auto) Seg Neutrophils % Seg Neuts % (Manual) Lymphocytes % (Manual) Monocytes % (Manual) Nucleated RBC % Seg Neutrophils # Seg Neutrophils # Man Lymphocytes # (Manual) Monocytes # (Manual) PT INR APTT Fibrinogen D-Dimer ABG pH POC ABG pCO2 POC ABG pO2 ABG pO2 ABG HCO3 ABG Base Excess ABG Hemoglobin ABG Oxyhemoglobin ABG Sodium ABG Potassium ABG Chloride ABG Glucose VBG pH Oxyhemoglobin Carboxyhemoglobin Sodium 135 L Potassium Chloride Carbon Dioxide BUN Creatinine Glucose POC Glucose 116 H 112 H Random Insulin C-Peptide Lactic Acid Calcium Ionized Calcium Phosphorus Magnesium AST 93 H ALT Alkaline Phosphatase 132 H Lactate Dehydrogenase NT-Pro-B Natriuret Pep Total Protein Albumin 3.6 L Arterial Blood Glucose Arterial Blood Ionized Calcium Urine WBC (Auto) Vancomycin Trough Phenytoin Crossmatch 11/02/20 11/02/20 11/02/20 17:45 19:19 19:19 WBC RBC Hgb Hct MCV MCH MCHC RDW Plt Count Lymph % (Auto) Carter % (Auto) Lymph # (Auto) Carter # (Auto) Baso # (Auto) Seg Neutrophils % Seg Neuts % (Manual) Lymphocytes % (Manual) Monocytes % (Manual) Nucleated RBC % Seg Neutrophils # Seg Neutrophils # Man Lymphocytes # (Manual) Monocytes # (Manual) PT INR APTT Fibrinogen D-Dimer ABG pH POC ABG pCO2 POC ABG pO2 ABG pO2 ABG HCO3 ABG Base Excess ABG Hemoglobin ABG Oxyhemoglobin ABG Sodium ABG Potassium ABG Chloride ABG Glucose VBG pH Oxyhemoglobin Carboxyhemoglobin Sodium Potassium Chloride Carbon Dioxide BUN Creatinine Glucose POC Glucose 107 H Random Insulin 43.2 H C-Peptide 6.23 H Lactic Acid Calcium Ionized Calcium Phosphorus Magnesium AST ALT Alkaline Phosphatase Lactate Dehydrogenase NT-Pro-B Natriuret Pep Total Protein Albumin Arterial Blood Glucose Arterial Blood Ionized Calcium Urine WBC (Auto) Vancomycin Trough Phenytoin Crossmatch 11/03/20 11/04/20 11/04/20 21:49 05:00 05:00 WBC 13.8 H RBC Hgb Hct MCV MCH MCHC RDW 16.6 H Plt Count Lymph % (Auto) 11.8 L Carter % (Auto) 11.0 H Lymph # (Auto) Carter # (Auto) 1.5 H Baso # (Auto) Seg Neutrophils % 75.1 H Seg Neuts % (Manual) Lymphocytes % (Manual) Monocytes % (Manual) Nucleated RBC % Seg Neutrophils # 10.4 H Seg Neutrophils # Man Lymphocytes # (Manual) Monocytes # (Manual) PT INR APTT Fibrinogen D-Dimer ABG pH POC ABG pCO2 POC ABG pO2 ABG pO2 ABG HCO3 ABG Base Excess ABG Hemoglobin ABG Oxyhemoglobin ABG Sodium ABG Potassium ABG Chloride ABG Glucose VBG pH Oxyhemoglobin Carboxyhemoglobin Sodium Potassium Chloride Carbon Dioxide BUN Creatinine Glucose 112 H POC Glucose 109 H Random Insulin C-Peptide Lactic Acid Calcium Ionized Calcium Phosphorus Magnesium AST 90 H ALT Alkaline Phosphatase Lactate Dehydrogenase NT-Pro-B Natriuret Pep Total Protein Albumin 3.8 L Arterial Blood Glucose Arterial Blood Ionized Calcium Urine WBC (Auto) Vancomycin Trough Phenytoin Crossmatch 11/04/20 11/04/20 11/05/20 06:03 23:47 07:47 WBC RBC Hgb Hct MCV MCH MCHC RDW Plt Count Lymph % (Auto) Carter % (Auto) Lymph # (Auto) Carter # (Auto) Baso # (Auto) Seg Neutrophils % Seg Neuts % (Manual) Lymphocytes % (Manual) Monocytes % (Manual) Nucleated RBC % Seg Neutrophils # Seg Neutrophils # Man Lymphocytes # (Manual) Monocytes # (Manual) PT INR APTT Fibrinogen D-Dimer ABG pH POC ABG pCO2 POC ABG pO2 ABG pO2 ABG HCO3 ABG Base Excess ABG Hemoglobin ABG Oxyhemoglobin ABG Sodium ABG Potassium ABG Chloride ABG Glucose VBG pH Oxyhemoglobin Carboxyhemoglobin Sodium Potassium Chloride Carbon Dioxide BUN Creatinine Glucose POC Glucose 107 H 121 H 111 H Random Insulin C-Peptide Lactic Acid Calcium Ionized Calcium Phosphorus Magnesium AST ALT Alkaline Phosphatase Lactate Dehydrogenase NT-Pro-B Natriuret Pep Total Protein Albumin Arterial Blood Glucose Arterial Blood Ionized Calcium Urine WBC (Auto) Vancomycin Trough Phenytoin Crossmatch 11/05/20 23:24 WBC RBC Hgb Hct MCV MCH MCHC RDW Plt Count Lymph % (Auto) Carter % (Auto) Lymph # (Auto) Carter # (Auto) Baso # (Auto) Seg Neutrophils % Seg Neuts % (Manual) Lymphocytes % (Manual) Monocytes % (Manual) Nucleated RBC % Seg Neutrophils # Seg Neutrophils # Man Lymphocytes # (Manual) Monocytes # (Manual) PT INR APTT Fibrinogen D-Dimer ABG pH POC ABG pCO2 POC ABG pO2 ABG pO2 ABG HCO3 ABG Base Excess ABG Hemoglobin ABG Oxyhemoglobin ABG Sodium ABG Potassium ABG Chloride ABG Glucose VBG pH Oxyhemoglobin Carboxyhemoglobin Sodium Potassium Chloride Carbon Dioxide BUN Creatinine Glucose POC Glucose 111 H Random Insulin C-Peptide Lactic Acid Calcium Ionized Calcium Phosphorus Magnesium AST ALT Alkaline Phosphatase Lactate Dehydrogenase NT-Pro-B Natriuret Pep Total Protein Albumin Arterial Blood Glucose Arterial Blood Ionized Calcium Urine WBC (Auto) Vancomycin Trough Phenytoin Crossmatch
[2020-11-06] MEDS: SODIUM BICARBONATE 325 MG TAB FEEDTUBE PRN (10:35)
[2020-11-06] MEDS: FAMOTIDINE 20 MG TAB PO SCH ×2 (10:35→21:33)
[2020-11-06] MEDS: FUROSEMIDE 40 MG TAB PO SCH (10:35)
[2020-11-06] MEDS: ENOXAPARIN 40 MG/0.4 ML INJ SUB-Q SCH (10:43)
[2020-11-06] MEDS: SODIUM BICARBONATE 650 MG TAB PO SCH ×3 (10:43→20:18)
[2020-11-06] MEDS: TOPIRAMATE TAB 25 MG TAB PO SCH ×2 (10:46→21:33)
--- NOTE | 2020-11-06 12:56 | Progress Note ---
Assessment and Plan Cultures: 10/05/2020 Blood culture: no growth 10/11/2020 blood culture: No growth 10/11/2020 tracheal aspirate: Usual respiratory jaylan 10/14/2020 blood culture: Enterobacter, coag negative staph. Sensitivities in "scanned reports" 10/15/2020 blood culture: negative 11/02/2020 no cultures no growth today A/P: 30-year-old female with GERD, hypertension, seizure disorder was admitted to the hospital at 36 weeks with seizures. She became hypoxic and pulseless requiring CPR. Following emergent section, patient developed hemorrhage, DIC. She has been admitted to ICU, remains on the vent: #Intermittent fever: Initially due to Enterobacter bacteremia. Now with new fever likely due to herpes genitalis. #Extensive herpes genitalis: Perianal and vaginal #Recent Enterobacter bacteremia: Treated #Status post arrest 10/07/2020: Apparently had a brief code due to ?ET tube clot/plugging. #Initial shock, DIC/persistent fever: Secondary to hemorrhage, ?possible sepsis. Possible pneumonia versus fluid overload. ?Central fever v/s from VTE. Noted diarrhea ? Cdiff + #Acute kidney injury: resolved #Acute respiratory failure: remains on the vent. now has trach #Transaminitis: ?HELLP. #Preeclampsia # hemorrhage: Status post , status post supracervical hysterectomy. #Encephalopathy post cardiac arrest #C. difficile: Completed PO vancomycin Recs: Start acyclovir 10 mg/kg IV every 8 hours for 48 hours, will switch to Valtrex later, for extensive herpes genitalis Wound care consultation Repeat blood cultures Monitor fever Violette Dejesus MD [facility], [place], [facility] ([facility]) Office [phone] Subjective Date of service: 11/06/20 Principal diagnosis: Eclampsia/HELLP Syndrome, ADOLPH, DIC; s/p , s/p supracervical hyst Interval history: Reconsult: Patient last time seen by ID on 10/28/2020. Now reconsulted for new genital rash and intermittent fever. On T-piece this via trach. Objective - Exam Narrative Exam: General appearance: Unresponsive Eyes: anicteric sclerae, moist conjunctivae; no lid-lag; PERRLA HENT: Normocephalic, Atraumatic; normal external ears, nares open, oropharynx limited rectal tube in place Neck: supple, tracheal midline, no JVD Lungs: Coarse breath sounds bilaterally CV: RRR no murmur Abdomen: Soft, wound with dressing Extremities: no edema, no cyanosis Skin: Extensive clusters of blisters perianal, vaginal area Psych: Unresponsive Neuro: Unresponsive - Constitutional Vitals: Vital Signs Temp Pulse Resp BP Pulse Ox 98.7 F 83 26 H 109/89 100 11/06/20 12:00 11/06/20 12:00 11/06/20 12:00 11/06/20 12:00 11/06/20 12:00 Temperature -Last 24 Hours Temperature 98.7 F Temperature 98.7 F Temperature 99.1 F Temperature 99.1 F Temperature 100.7 F Temperature 100.7 F Temperature 99.2 F Temperature 99.2 F - Labs CBC & Chem 7: 11/04/20 05:00 11/04/20 05:00 Labs: Abnormal lab results 11/02/20 11/02/20 11/05/20 Range/Units 19:19 19:19 23:24 POC Glucose 111 H (70-105) mg/dL Random Insulin 43.2 H (<=19.6) uIU/mL C-Peptide 6.23 H (0.80-3.85) ng/mL
--- NOTE | 2020-11-06 14:16 | Progress Note ---
Assessment and Plan A: POD#35 s/p repeat section at 36 wks secondary to Eclampsia and Cardiac Arrest with Resuscitation POD#35 s/p supracervical abdominal hysterectomy secondary to Uterine Atony, Hemorrhage and Disseminated Intravascular Coagulation (DIC) s/p multiple transfusions of blood products POD #16 s/p Percutaneous Tracheostomy, Fiberoptic Bronchoscopy, PEG tube placement Right Upper Extremity superficial and deep vein thrombosis on Lovenox Hypoglycemia Febrile overnight -Status post cardiac arrest 10/07/2020 requiring reintubation. -Shock, DIC: Secondary to hemorrhage-stable -Sepsis: followed by ID, abx/imaging recommendations noted -Acute kidney injury: resolved, labs stable -Acute respiratory failure: off vent presently -Preeclampsia: s/p Magnesium P: Continue supportive care Monitor fever curve Subjective - Subjective Date of service: 11/06/20 Principal diagnosis: Eclampsia/HELLP Syndrome, ADOLPH, DIC; s/p , s/p supracervical hyst Interval history: Late entry. All risk control consultant recommendations reviewed and greatly appreciated. 30y/o POD #35 s/p emergent section and supracervical hysterectomy for eclampsia and DIC. POD#16 s/p Percutaneous tracheostomy, Fiberoptic bronchoscopy, PEG tube placement. Currently on Lovenox for SVT and DVT in right upper extremity. Febrile overnight to Tmax 100.7 at 2000 11/05/20. Pt remains unresponsive, with spontaneous blinking of eyes and movement of both lower extremities this morning. Patient reports: no voiding normally, no ambulating normally Objective - Vital Signs Latest vital signs: Vital Signs Temp Pulse Pulse Pulse Resp Resp BP 11/06/20 13:04 76 21 11/06/20 12:00 98.7 F 83 26 H 109/89 11/06/20 11:00 97 H 31 H 133/94 11/06/20 10:35 110 H 133/94 11/06/20 10:00 105 H 12 150/75 11/06/20 09:00 97 H 32 H 129/64 11/06/20 08:14 11/06/20 08:00 98.7 F 88 23 127/67 11/06/20 07:00 90 26 H 125/71 11/06/20 06:27 96 H 120/69 11/06/20 06:00 86 23 120/69 11/06/20 05:00 92 H 33 H 119/63 11/06/20 04:00 99.1 F 97 H 95 H 18 134/65 11/06/20 03:00 98 H 13 120/73 11/06/20 02:00 94 H 17 122/55 11/06/20 01:19 11/06/20 01:00 95 H 25 H 101/64 11/06/20 00:01 77 22 106/58 11/06/20 00:00 99.1 F 73 73 21 11/05/20 23:00 78 24 106/55 11/05/20 22:30 12 11/05/20 22:00 88 29 H 105/58 11/05/20 21:31 81 106/50 11/05/20 21:00 94 H 14 107/66 11/05/20 20:49 94 H 17 101/48 11/05/20 20:28 11/05/20 20:00 100.7 F H 82 83 24 102/53 11/05/20 19:41 98 H 115/67 11/05/20 19:00 98 H 10 L 117/60 11/05/20 18:01 110 H 16 116/85 11/05/20 17:00 93 H 13 119/51 11/05/20 16:00 99.2 F 101 H 101 H 19 99/52 11/05/20 15:39 92 H 24 11/05/20 15:25 11/05/20 15:00 78 24 101/44 11/05/20 14:17 84 115/66 11/05/20 14:15 84 115/66 Pulse Ox Pulse Ox 11/06/20 13:04 11/06/20 12:00 100 11/06/20 11:00 99 11/06/20 10:35 11/06/20 10:00 100 11/06/20 09:00 99 11/06/20 08:14 100 100 11/06/20 08:00 99 11/06/20 07:00 100 11/06/20 06:27 11/06/20 06:00 100 11/06/20 05:00 100 11/06/20 04:00 100 11/06/20 03:00 100 11/06/20 02:00 100 11/06/20 01:19 100 100 11/06/20 01:00 100 11/06/20 00:01 100 11/06/20 00:00 100 01/21/21 23:00 100 11/05/20 22:30 11/05/20 22:00 99 11/05/20 21:31 11/05/20 21:00 99 11/05/20 20:49 99 11/05/20 20:28 100 11/05/20 20:00 100 11/05/20 19:41 11/05/20 19:00 100 11/05/20 18:01 11/05/20 17:00 11/05/20 16:00 11/05/20 15:39 11/05/20 15:25 11/05/20 15:00 11/05/20 14:17 11/05/20 14:15 Intake and Output 11/05/20 11/06/20 11/06/20 22:59 06:59 14:59 Intake Total 680 1680 560 Balance 680 1680 560 Intake: IV 1000 D10w 1,000 ml @ 75 mls/hr 1000 IV DIRECT ERINN Rx#: [id number] Intake, Free Water 200 200 200 Tube Feeding 480 480 360 Other: Total, Intake Amount 60 60 60 Voiding Method External Female Catheter External Female Catheter External Female Catheter # Voids Void 2 1 # Bowel Movements 1 Weight 108.2 kg - Exam Breasts: Present: deferred Abdomen: Present: soft Extremities: Present: edema Incision: Present: intact - Labs Labs: Abnormal lab results 11/02/20 11/02/20 11/05/20 Range/Units 19:19 19:19 23:24 POC Glucose 111 H (70-105) mg/dL Random Insulin 43.2 H (<=19.6) uIU/mL C-Peptide 6.23 H (0.80-3.85) ng/mL
[2020-11-06] MEDS: ACYCLOVIR 1,000 MG in SODIUM CHLORIDE 0.9% 100 ML IV SCH ×2 (14:19→21:31)
--- NOTE | 2020-11-06 16:18 | Event Note ---
Date: 11/06/20 I called patient's mother Ms. Pamela Holguin at [phone] again today11/06/2020 at 4:15 PM to reach out to her to update patient's condition prognosis treatment plan, consultants recommendation, however I was unable to reach her, left voice message encouraging her to call back. I informed patient's nurse of the above attempt to talk to the patient's mother Ms. Pamela Holguin.
[2020-11-07] MEDS: hydrALAZINE 25 MG TAB PO SCH ×3 (05:19→21:07)
[2020-11-07] MEDS: ACYCLOVIR 1,000 MG in SODIUM CHLORIDE 0.9% 100 ML IV SCH ×3 (05:19→21:06)
[2020-11-07 06:01] LABS: Basophils # (Auto) 0.1 K/mm3 (0.0-0.1); Basophils % (Auto) 0.6 % (0.0-1.8); Eosinophils # (Auto) 0.3 K/mm3 (0.0-0.4); Eosinophils % (Auto) 2.5 % (0.0-4.3); Hematocrit 32.6 % (30.3-42.9); Lymphocytes # (Auto) 1.6 K/mm3 (1.2-5.4); Lymphocytes % (Auto) 15.2 % (13.4-35.0); Mean Corpuscular HGB Conc 34 % (30-34); Mean Corpuscular Volume 84 fl (79-97); Monocytes # (Auto) 1.3 K/mm3 (0.0-0.8); Monocytes % (Auto) 13.1 % (0.0-7.3); Platelet Count 259 K/mm3 (140-440); Red Blood Count 3.88 M/mm3 (3.65-5.03); Red Cell Distribution Width 16.6 % (13.2-15.2)
[2020-11-07 06:02] LABS: Blood Urea Nitrogen 12 mg/dL (7-17); Calcium 9.2 mg/dL (8.4-10.2); Hemolysis Index 1
[2020-11-07 06:06] LABS: BUN/Creatinine Ratio 20
[2020-11-07] MEDS: DEXTROSE 10% IN WATER 1,000 ML IV SCH ×2 (10:36→23:43)
[2020-11-07] MEDS: FAMOTIDINE 20 MG TAB PO SCH ×2 (10:38→21:07)
[2020-11-07] MEDS: SODIUM BICARBONATE 650 MG TAB PO SCH ×3 (10:39→21:06)
[2020-11-07] MEDS: ENOXAPARIN 40 MG/0.4 ML INJ SUB-Q SCH (10:39)
[2020-11-07] MEDS: FUROSEMIDE 40 MG TAB PO SCH (10:39)
[2020-11-07] MEDS: TOPIRAMATE TAB 25 MG TAB PO SCH ×2 (10:39→21:06)
--- NOTE | 2020-11-07 14:34 | Progress Note ---
Assessment and Plan A: POD#36 s/p repeat section at 36 wks secondary to Eclampsia and Cardiac Arrest with Resuscitation POD#36 s/p supracervical abdominal hysterectomy secondary to Uterine Atony, Hemorrhage and Disseminated Intravascular Coagulation (DIC) s/p multiple transfusions of blood products POD #17 s/p Percutaneous Tracheostomy, Fiberoptic Bronchoscopy, PEG tube placement Right Upper Extremity superficial and deep vein thrombosis on Lovenox Hypoglycemia Herpetic outbreak Afebrile overnight -Status post cardiac arrest 10/07/2020 requiring reintubation. -Shock, DIC: Secondary to hemorrhage-stable -Sepsis: followed by ID, abx/imaging recommendations noted -Acute kidney injury: resolved, labs stable -Acute respiratory failure: off vent presently -Preeclampsia: s/p Magnesium P: Continue supportive care Subjective - Subjective Date of service: 11/07/20 Principal diagnosis: Eclampsia/HELLP Syndrome, ADOLPH, DIC; s/p , s/p supracervical hyst Interval history: Late entry. All beauty consultant recommendations reviewed and greatly appreciated. 30y/o POD #36 s/p emergent section and supracervical hysterectomy for eclampsia and DIC. POD#17 s/p Percutaneous tracheostomy, Fiberoptic bronchoscopy, PEG tube placement. Currently on Lovenox for SVT and DVT in right upper extremity. Currently being treated for severe herpetic outbreak. Afebrile overnight. Pt remains unresponsive, with spontaneous blinking of eyes and movement of both lower extremities this morning. Patient reports: no voiding normally, no ambulating normally Objective - Vital Signs Latest vital signs: Vital Signs Temp Pulse Pulse Resp BP Pulse Ox Pulse Ox 11/07/20 12:00 98.9 F 11/07/20 10:38 105 H 114/75 11/07/20 09:00 87 20 104/54 100 11/07/20 08:35 100 11/07/20 08:00 99.1 F 97 H 20 103/55 100 100 11/07/20 07:00 103 H 25 H 111/53 100 11/07/20 06:13 100 11/07/20 06:00 98 H 22 113/53 100 11/07/20 05:19 102 H 123/58 11/07/20 05:01 102 H 17 117/66 100 11/07/20 04:00 98.4 F 93 H 93 H 20 128/66 100 11/07/20 03:00 90 23 118/58 100 11/07/20 02:00 105 H 15 128/61 100 11/07/20 01:01 109 H 16 128/58 100 11/07/20 00:00 101 H 98 H 12 119/63 100 11/06/20 23:48 98.8 F 11/06/20 23:22 95 H 24 115/58 100 11/06/20 23:00 108 H 21 115/58 100 11/06/20 22:00 91 H 22 123/56 100 11/06/20 21:32 92 H 131/62 11/06/20 21:00 94 H 10 L 125/71 100 11/06/20 20:33 100 11/06/20 20:18 105 H 128/77 11/06/20 20:00 105 H 105 H 21 129/77 100 11/06/20 19:55 98.2 F 11/06/20 19:00 104 H 42 H 139/83 100 11/06/20 18:00 108 H 13 135/84 100 11/06/20 17:00 29 H 107/62 100 11/06/20 16:00 97.5 F L 90 22 109/68 100 11/06/20 15:00 95 H 22 87/60 99 Intake and Output 11/06/20 11/07/20 11/07/20 22:59 06:59 14:59 Intake Total 2585 060 1142 Output Total 950 Balance 761 085 0016 Intake: IV 1240 1000 D10w 1,000 ml @ 75 mls/hr 1000 1000 IV DIRECT ERINN Rx#: [id number] Zovirax 1,000 mg In NaCl 240 0.9% 100 ml @ 100 mls/hr IV Q8HR ERINN Rx#:[id number] Intake, Free Water 200 200 100 Tube Feeding 480 480 180 Output: Urine 950 Indwelling Catheter 450 Void 500 Other: Total, Intake Amount 60 60 60 Total, Output Amount 350 Voiding Method External Female Catheter External Female Catheter External Female Catheter # Voids Void 1 # Bowel Movements 1 Weight 108.2 kg - Exam Breasts: Present: deferred Abdomen: Present: soft (obese ) Extremities: Present: edema Incision: Present: intact (dry and intact ) - Labs Labs: Abnormal lab results 11/06/20 11/06/20 11/07/20 Range/Units 17:04 23:36 03:33 RDW (13.2-15.2) % Bond % (Auto) (0.0-7.3) % Bond # (Auto) (0.0-0.8) K/mm3 Glucose (65-100) mg/dL POC Glucose 112 H 108 H 109 H (70-105) mg/dL Phosphorus (2.5-4.5) mg/dL 11/07/20 11/07/20 Range/Units 04:44 04:44 RDW 16.6 H (13.2-15.2) % Bond % (Auto) 13.1 H (0.0-7.3) % Bond # (Auto) 1.3 H (0.0-0.8) K/mm3 Glucose 103 H (65-100) mg/dL POC Glucose (70-105) mg/dL Phosphorus 5.30 H (2.5-4.5) mg/dL
--- NOTE | 2020-11-07 18:02 | Progress Note ---
Assessment and Plan Critical care statement The high probability of a clinically significant, sudden or life threatening deterioration of the [MULTIPLE ORGAN] system(s) required my full and direct attention, intervention and personal management. The aggregate critical care time was [33] minutes. This time is in addition to time spent performing reported procedures but includes the following: [X] Data Review and interpretation [X] Patient assessment and monitoring of vital signs [X] Documentation [X] Medication orders and management Assessment and plan --Acute hypoxic respiratory failure: Tracheostomy on T-piece , 5 L oxygen, saturating 100% Nebulizers, continue oxygen titrate O2 sats to more than 90% Pulmonary critical following --Sepsis; received antibiotics Continue to monitor off antibiotics ID following --Cardiac arrest; 10/07/2020 ,status post CPR --COVID-19 test negative; 10/08/2020 --C. difficile colitis test; positive; 10/16/2020 --Acute metabolic encephalopathy --Acute hypoxic brain injury; Supportive care, closely monitor --Acute kidney injury; vasomotor nephropathy Resolved, renal function within normal limits, closely monitor --Shock; monitor of pressors Blood pressures reasonable level --DIC; sepsis, septic shock, resolved --History of preeclampsia; / hemorrhage Status post hysterectomy --History of C. difficile colitis; completed oral vancomycin --DVT/SVT and right upper extremity Very poor prognosis, Consults recommendations noted and appreciated We will closely monitor the patient and adjust management as needed Plan of care reviewed with the patient's nurse. Subjective Date of service: 11/07/20 Principal diagnosis: Eclampsia/HELLP Syndrome, ADOLPH, DIC; s/p , s/p supracervical hyst Interval history: 30 y/o female patient with Eclampsia/help syndrome, s/p emergent section with DIC, hemorrhage, supracervical abdominal hysterectomy, acute respiratory failure , tracheostomy on T-piece with morbid obesity, s/p cardiac arrest 12/08/2019 status post CPR per ACLS, acute hypoxic brain injury Acute kidney injury improved, severe shock requiring pressors, DIC septic shock improved, history of C. difficile colitis on vancomycin. Tracheostomy on T-piece, continues to require 5 L of oxygen. Brief history; 30 year old -[place] female CHE 10/25/20 at 36w5d who presents with seizures in triage on 10/02/20. Pt was not able to provide history but per pt's , she presented to the hospital to return a 24 hour urine specimen for analysis. She then suddenly reported that she did not feel good. She was taken to labor and delivery and shortly after arrival, she began seizing. During this time, a code met was called because the patient became hypoxic. She was then noted to be without a pulse. Chest compressions were started immediately, and the patient was emergently taken to the operating room for delivery of the fetus. Off note, This patient has had care at [facility] with comanagement by [facility] since 11 wks complicated by ADHD, morbid obesity, generalized anxiety disorder, panic attacks, chronic narcotic use, fibromyalgia, GERD, Irritable Bowel Syndrome, Migraines, h/o endometrial ablation and ovarian vein embolization, genital herpes, insomnia, LGA fetus, nausea and vomiting, polyhydramnios, quad screen positive for Down's Syndrome, and previous x 3. She is GBS negative. , Patient tracheostomy on ventilatory support, unable to wean, continue supportive care poor prognosis 11:30: Pt brought to L&D triage for evaluation of possible labor. Pt accompanied by her spouse. Pt spouse poor historian; unable to obtain history- allergies at this time. Pt taken from registration to triage area via WC. Pt unresponsive, actively seizing with snorous respirations. planning division superintendent, Kassy, called and requesting assistance. 11:35: Multiple staff at bedside. Pt 02 sat 67% on nonrebreather, unable to read BP . Yifan Theodore CRNA, at bedside for intubation and assistance with IV insertion. INT attempt by multiple RNs unsuccessful at this time. 11:42: Pt being bagged by KORIN, 02% 79%. No pulse palpated, compressions on at this time; bharati young called and Dr. Newberry preparing OR for emergent c/s. 11:44: Continued compressions on stretcher while transporting pt to OR 1. Pt being bagged with jaw thrust manuever in place by KORIN Stringer student. 11:45: Arrival to OR 1. Dr. Newberry and Dr. Portillo present for emergent c/s. Code team arrived for continued care. patient revived and c/s done Patient has been bleeding from C/s site followed by supracervical hysterectomy for severe bleeding, Patient transfused multiple units of PRBC, Patient in DIC. Patient transferred to the ICU Hospital course; 10/03. Patient seen and examined at bedside this morning. Patient is nonresponsive and mechanically ventilated. On pressors. Labs reviewed-has leukocytosis, anemia, thrombocytopenia, ADOLPH and lactic acidosis. Started on IV antibiotics to cover possible sepsis secondary to DIC. Hematology oncology recommendations appreciated-needs additional cryoprecipitate and FFP. Monitor D-dimer, fibrinogen and frequent labs. Nephrology consulted for lactic acidosis and ADOLPH. 10/04. Remains mechanically ventilated. Kevin antibiotics. Labs shows improved acidosis - lactic acid 3.5. Hb drop noted. Getting transfused 2 units PRBCs. Platelet count is ~40k. Continue to monitor labs closely. Critical care team on board. 10/05; xray reviewed, concerning for multifocal infilrate, likely underlying Pneumonia, will add ID consult to assist with management of this critically ill patient, start tube feed, closely monitor renal system 10/06: Resumed care, remains on mechanical ventilation. No active bleeding, H&H stable. Continue to monitor CBC and BMP. Continue IV antibiotic for underly ing pneumonia. Follow critical care and ID recommendation. 10/07: Remains on mechanical ventilation. No active bleeding, H&H stable. Critical care following, wean off ventilation as tolerated. 10/08: Patient had another cardiac arrest last night. Remains on mechanical ventilation, update family. Continue supportive care -poor prognosis 10/09: Called patient mother and discussed about patient care and management. Answered all question to best of my knowledge and family satisfaction. Patient remains on mechanical ventilation, cardiac arrest x2 so far. Critically sick, poor prognosis 10/10: remains on mechanical ventilation. h/h stable, no active bleeding. monitor CBC/BMP 10/11: WBC trended up with diarrhea, started on vancomycin po. remains on MV, off pressor, tolerating TF 10/12: remains on MV, off pressor, tolerating TF. called family for update but unable to reach, could not leave message as it was full. cont supportive care, wean off vent as tolerated. 10/13/2020; patient is on mechanical ventilation, tolerating tube feeding. Patient has labored breathing. Neuro was consulted and recommend MRI. Patient is on Precedex. Rectal tube in place. 10/14/2020; patient is on mechanical ventilation, Precedex. Patient had fever and blood culture ordered. Patient is on IV vancomycin per ID recommendation. Neuro consulted and recommend MRI. Continue to monitor. Prognosis is guarded. 10/15/2020; patient is on mechanical ventilation, Precedex. Patient had fever and blood culture ordered. Patient is on IV vancomycin per ID recommendation. Neuro consulted and recommend MRI. Continue to monitor. Prognosis is guarded. 10/17: Remains with C.DIFF and Bactermia, Poor prognosis. No purposeful movement. MRI and EEG discussed with Intensvisit, Continue aggressive BP control. 10/18: Blood pressure better controlled MRI done 10/15 shows mild improvement in edema. We will continue to monitor mother was at bedside yesterday. Nursing documentation trach and PEG discussed with the mother including goals of care. She is still in denial about the gravity of her daughters her condition which is understandable considering her age. Continue aggressive management at this time. Await for bacteremia to clear by ID before placing PICC line. 10/19: Patient for possible PEG and Trach, ID following, repeat cultures remain negative. Poor prognosis 10/20: Pt noted to DVT and SVT in the RUE, Vascular consult and will also obtain Hematology for possible considering changing in Anticoagulation. CONTINUE TO MONITOR H/H and PLT. Family updated by [employer]. Heparin gtt started. Will check CBC and BMP 10/21: Continue supporive care, Diarrhea now resolving, But still with persistent Fever, May need repeat CT/AP per ID, still with profused Encephalopathy 10/22: Continue supportive care, weaning, awaiting repeat Imaging. FOLLOW Fever curve. Enoxparin restarted 10/23: Continue supportive care, wean as tolerated. 10/24; Started on CPAP trial, discussed with pulmonary, still with diarrhea. 10/25: Patients seen and examined, no clinical changes, still with diarrhea. ? meaningful recovery. 10/26: Clinically unchanged, continue CPAP trial, Will discuss with Neurology about re-evaluation, ?Need for repeat CT head. ?PRESS considering initial e levated BP, now stable. 10/27; tracheostomy on vent, weaning trials, vital signs noted, poor prognosis 10/28; unable to wean, tracheostomy on vent. Sepsis. Continue current management. Consults and recommendations noted and appreciated 10/30/2020;Patient on T-piece 5 L of oxygen not in acute distress, noncommunicative 11/02/2020; patient on T-piece 5 L of oxygen 11/03/2020; patient's fever slightly improved low-grade, continue current management, remains on T-piece with 5 L of oxygen 11/04/2020; T-max last 24 hours 100.3 F, new cultures negative to date, monitor off antibiotics Patient is off Levophed, blood pressures reasonable level, tracheostomy on T- piece 3 to 5 L nasal cannula oxygen 11/05/2020; tracheostomy on T-piece patient remains on 5 L of nasal cannula oxygen, unresponsive severe hypoxic brain injury I called patient's mother Ms. Pamela Bassett as well as patient's spouse Mr. Danilo Dimas at [phone] unable to reach them Left voicemail on Ms. Pamela Bassettz phone and encouraged him to call back 11/06/2020; I tried to call again today Ms. Pamela Bassett to discuss patient's condition and treatment plan and update consultants recommendations and patient's prognosis., unable to reach her I will call patient's spouse and patient's mother to update on patient's condit ion today Objective - Constitutional Vitals: Vital Signs - 12hr 11/07/20 11/07/20 11/07/20 06:00 06:13 07:00 Temperature Pulse Rate 98 H 103 H Respiratory 22 25 H Rate Blood Pressure 113/53 111/53 O2 Sat by Pulse 100 100 Oximetry O2 Sat by Pulse 100 Oximetry [ Assessment] 11/07/20 11/07/20 11/07/20 08:00 08:35 09:00 Temperature 99.1 F Pulse Rate 97 H 87 Respiratory 20 20 Rate Blood Pressure 103/55 104/54 O2 Sat by Pulse 100 100 100 Oximetry O2 Sat by Pulse 100 Oximetry [ Assessment] 11/07/20 11/07/20 11/07/20 10:38 12:00 16:00 Temperature 98.9 F 99.2 F Pulse Rate 105 H Respiratory Rate Blood Pressure 114/75 O2 Sat by Pulse Oximetry O2 Sat by Pulse Oximetry [ Assessment] - Labs CBC & Chem 7: 11/07/20 04:44 11/07/20 04:44 Labs: Abnormal lab results 11/06/20 11/07/20 11/07/20 Range/Units 23:36 03:33 04:44 RDW 16.6 H (13.2-15.2) % [place] % (Auto) 13.1 H (0.0-7.3) % [place] # (Auto) 1.3 H (0.0-0.8) K/mm3 Glucose (65-100) mg/dL POC Glucose 108 H 109 H (70-105) mg/dL Phosphorus (2.5-4.5) mg/dL 11/07/20 11/07/20 Range/Units 04:44 15:58 RDW (13.2-15.2) % [place] % (Auto) (0.0-7.3) % [place] # (Auto) (0.0-0.8) K/mm3 Glucose 103 H (65-100) mg/dL POC Glucose 108 H (70-105) mg/dL Phosphorus 5.30 H (2.5-4.5) mg/dL HEART Score - HEART Score Age: < 45 Risk factors: 1-2 risk factors - Critical Actions Critical Actions: >7 pts:50-65% risk of adverse cardiac event. Early invasive measures
--- NOTE | 2020-11-07 19:17 | Progress Note ---
Assessment and Plan Imp: 1. Eclampsia w/ seizures s/p 2. S/p CP arrest 3. Encephalopathy, probably anoxic 4. Morbid obesity 5. DIC 6. ADOLPH 7. Acute respiratory failure, hypoxia 8. C.diff colitis Rec: 1. Cont. Tpiece; not a candidate for tracheal decannulation due to mentation 2. Avoid sedating meds 3. TFs, DVT PPx 4. Supportive care 5. Placement; complex decision-making No family present Subjective Date of service: 11/07/20 Principal diagnosis: Eclampsia/HELLP Syndrome, ADOLPH, DIC; s/p , s/p supracervical hyst Interval history: No events. Eyes open. On Tpiece. Comatose. Active Medications Acetaminophen (Acetaminophen 325 Mg/10.15 Ml Oral Liqd Unit Dose) 650 mg FEEDTUBE Q6H PRN PRN Reason: Non Cardiac Pain or Temp>100.5 Last Admin: 11/05/20 21:30 Dose: 650 mg Documented by: Albuterol (Albuterol 2.5 Mg/3 Ml Nebu) 2.5 mg IH Q4HRT PRN PRN Reason: Shortness Of Breath Last Admin: 11/06/20 13:04 Dose: 2.5 mg Documented by: Lipase/Protease/Amylase (Lipase 10,500/Protease 25,000/Amylase 43,750 (Units) Dr Barakat) 1 each FEEDTUBE PRN PRN PRN Reason: For Clogged Feeding Tube Enoxaparin Sodium (Enoxaparin 40 Mg/0.4 Ml Inj) 40 mg SUB-Q DAILY ERINN; Protocol Last Admin: 11/07/20 10:39 Dose: 40 mg Documented by: Famotidine (Famotidine 20 Mg Tab) 20 mg PO BID [facility] Last Admin: 11/07/20 10:38 Dose: 20 mg Documented by: Furosemide (Furosemide 40 Mg Tab) 40 mg PO QDAY [facility] Last Admin: 11/07/20 10:39 Dose: 40 mg Documented by: Hydralazine HCl (Hydralazine 20 Mg/1 Ml Inj) 20 mg IV Q6H PRN PRN Reason: SBP >170 Last Admin: 10/17/20 07:20 Dose: 20 mg Documented by: Hydralazine HCl (Hydralazine 25 Mg Tab) 50 mg PO Q8HR [facility] Last Admin: 11/07/20 15:56 Dose: Not Given Documented by: Dextrose (D10w) 1,000 mls @ 75 mls/hr IV DIRECT [facility] Last Admin: 11/07/20 10:36 Dose: 75 mls/hr Documented by: Acyclovir 1,000 mg/ Sodium (Chloride) 120 mls @ 100 mls/hr IV Q8HR [facility]; Protocol Stop: 11/08/20 13:59 Last Admin: 11/07/20 15:56 Dose: 100 mls/hr Documented by: Labetalol HCl (Labetalol 100 Mg Tab) 300 mg PO TID [facility] Last Admin: 11/07/20 15:54 Dose: Not Given Documented by: Simple Syrup (Simple Syrup 15 Ml) 15 ml FEEDTUBE PRN PRN PRN Reason: Hypoglycemia Simple Syrup (Simple Syrup 15 Ml) 30 ml FEEDTUBE PRN PRN PRN Reason: Hypoglycemia Sodium Bicarbonate (Sodium Bicarbonate 325 Mg Tab) 325 mg FEEDTUBE PRN PRN PRN Reason: For Clogged Feeding Tube Last Admin: 11/06/20 10:35 Dose: 325 mg Documented by: Sodium Bicarbonate (Sodium Bicarbonate 650 Mg Tab) 1,300 mg PO TID [facility] Last Admin: 11/07/20 15:55 Dose: 1,300 mg Documented by: Topiramate (Topiramate Tab 25 Mg Tab) 50 mg PO Q12HR [facility] Last Admin: 11/07/20 10:39 Dose: 50 mg Documented by: Objective Vital Signs - 12hr 11/07/20 11/07/20 11/07/20 08:00 08:35 09:00 Temperature 99.1 F Pulse Rate 97 H 87 Respiratory 20 20 Rate Blood Pressure 103/55 104/54 O2 Sat by Pulse 100 100 100 Oximetry O2 Sat by Pulse 100 Oximetry [ Assessment] 11/07/20 11/07/20 11/07/20 10:00 10:38 11:00 Temperature Pulse Rate 89 105 H 109 H Respiratory 21 28 H Rate Blood Pressure 110/53 114/75 115/58 O2 Sat by Pulse 100 100 Oximetry O2 Sat by Pulse Oximetry [ Assessment] 11/07/20 11/07/20 11/07/20 12:00 13:00 14:00 Temperature 98.9 F Pulse Rate 93 H 86 92 H Respiratory 17 28 H 21 Rate Blood Pressure 102/54 106/53 108/54 O2 Sat by Pulse 100 100 100 Oximetry O2 Sat by Pulse Oximetry [ Assessment] 11/07/20 11/07/20 11/07/20 15:00 16:00 16:01 Temperature 99.2 F Pulse Rate 106 H 100 H Respiratory 26 H 28 H Rate Blood Pressure 114/54 118/42 O2 Sat by Pulse 99 100 Oximetry O2 Sat by Pulse Oximetry [ Assessment] 11/07/20 11/07/20 17:00 18:00 Temperature Pulse Rate 109 H 93 H Respiratory 25 H 20 Rate Blood Pressure 105/54 110/62 O2 Sat by Pulse 100 100 Oximetry O2 Sat by Pulse Oximetry [ Assessment] Constitutional: comatose, other (s/p trach) Eyes: non-icteric ENT: oropharynx moist Neck: other (large in cirumference) Effort: normal Ascultation: Bilateral: rhonchi Cardiovascular: regular rate and rhythm, other (no mrg) Gastrointestinal: normoactive bowel sounds, soft Extremities: no cyanosis, pink and warm Neurologic: other (unresponsive, not following commands, not tracking) Psychiatric: other (unable to assess) CBC and BMP: 11/07/20 04:44 11/07/20 04:44 ABG, PT/INR, D-dimer: ABG ABG pH 7.459 pH Units (7.350-7.450) H 10/26/20 10:30 POC ABG pCO2 20.7 mmHg (32.0-48.0) L 10/13/20 07:18 ABG pCO2 32.4 mm Hg 10/26/20 10:30 POC ABG pO2 137.9 mmHg (83-108) H 10/13/20 07:18 ABG pO2 112.2 mm Hg (80.0-90.0) H 10/26/20 10:30 POC ABG HCO3 14.8 10/13/20 07:18 ABG O2 Saturation 98.2 % (95.0-99.0) 10/26/20 10:30 PT/INR, D-dimer PT 13.6 Sec. (12.2-14.9) 10/21/20 13:54 INR 1.06 (0.87-1.13) 10/21/20 13:54 D-Dimer > 30349 ng/mlDDU (0-234) H 12/20/20 10:00 Abnormal lab findings: Abnormal Labs 10/02/20 10/02/20 10/02/20 12:03 12:18 12:18 WBC 14.9 H RBC Hgb 9.1 L Hct MCV MCH 22 L MCHC 28 L RDW 17.6 H Plt Count 102 L Lymph % (Auto) [place] % (Auto) Lymph # (Auto) [place] # (Auto) Baso # (Auto) Seg Neutrophils % Seg Neuts % (Manual) 36.0 L Lymphocytes % (Manual) 49.0 H Monocytes % (Manual) Nucleated RBC % 6.0 H Seg Neutrophils # Seg Neutrophils # Man Lymphocytes # (Manual) 7.3 H Monocytes # (Manual) PT INR APTT Fibrinogen D-Dimer ABG pH POC ABG pCO2 POC ABG pO2 ABG pO2 ABG HCO3 ABG Base Excess ABG Hemoglobin ABG Oxyhemoglobin ABG Sodium ABG Potassium ABG Chloride ABG Glucose VBG pH Oxyhemoglobin Carboxyhemoglobin Sodium 134 L Potassium Chloride Carbon Dioxide 12 L BUN 6 L Creatinine Glucose 390 H POC Glucose 451 H Random Insulin C-Peptide Lactic Acid Calcium Ionized Calcium Phosphorus Magnesium AST 135 H ALT 85 H Alkaline Phosphatase 172 H Lactate Dehydrogenase 641 H NT-Pro-B Natriuret Pep Total Protein 5.4 L Albumin 2.3 L Arterial Blood Glucose Arterial Blood Ionized Calcium Urine WBC (Auto) Vancomycin Trough Phenytoin Crossmatch 10/02/20 10/02/20 10/02/20 12:50 13:05 13:05 WBC 38.6 H RBC Hgb 8.9 L Hct 29.0 L MCV 73 L MCH 22 L MCHC RDW 17.2 H Plt Count Lymph % (Auto) [place] % (Auto) Lymph # (Auto) [place] # (Auto) Baso # (Auto) Seg Neutrophils % Seg Neuts % (Manual) Lymphocytes % (Manual) Monocytes % (Manual) Nucleated RBC % 2.0 H Seg Neutrophils # Seg Neutrophils # Man 20.1 H Lymphocytes # (Manual) 10.4 H Monocytes # (Manual) 2.3 H PT INR APTT Fibrinogen D-Dimer ABG pH POC ABG pCO2 POC ABG pO2 ABG pO2 ABG HCO3 ABG Base Excess ABG Hemoglobin ABG Oxyhemoglobin ABG Sodium ABG Potassium ABG Chloride ABG Glucose VBG pH Oxyhemoglobin Carboxyhemoglobin Sodium Potassium Chloride Carbon Dioxide BUN Creatinine Glucose POC Glucose Random Insulin C-Peptide Lactic Acid Calcium Ionized Calcium Phosphorus Magnesium AST 184 H ALT 113 H Alkaline Phosphatase Lactate Dehydrogenase 769 H NT-Pro-B Natriuret Pep Total Protein Albumin Arterial Blood Glucose Arterial Blood Ionized Calcium Urine WBC (Auto) Vancomycin Trough Phenytoin Crossmatch See Detail 10/02/20 10/02/20 10/02/20 16:25 16:35 16:35 WBC RBC Hgb Hct MCV MCH MCHC RDW Plt Count Lymph % (Auto) [place] % (Auto) Lymph # (Auto) [place] # (Auto) Baso # (Auto) Seg Neutrophils % Seg Neuts % (Manual) Lymphocytes % (Manual) Monocytes % (Manual) Nucleated RBC % Seg Neutrophils # Seg Neutrophils # Man Lymphocytes # (Manual) Monocytes # (Manual) PT INR APTT Fibrinogen D-Dimer ABG pH 7.031 L* POC ABG pCO2 POC ABG pO2 ABG pO2 116.8 H ABG HCO3 12.7 L ABG Base Excess -16.9 L ABG Hemoglobin 7.8 L ABG Oxyhemoglobin ABG Sodium ABG Potassium ABG Chloride ABG Glucose VBG pH Oxyhemoglobin 94.9 L Carboxyhemoglobin Sodium Potassium Chloride Carbon Dioxide BUN Creatinine Glucose 403 H POC Glucose Random Insulin C-Peptide Lactic Acid 11.40 H* Calcium 6.3 L D Ionized Calcium Phosphorus Magnesium AST 70 H ALT Alkaline Phosphatase Lactate Dehydrogenase NT-Pro-B Natriuret Pep Total Protein 1.9 L D Albumin 1.2 L Arterial Blood Glucose Arterial Blood Ionized Calcium Urine WBC (Auto) Vancomycin Trough Phenytoin Crossmatch 10/02/20 10/02/20 10/02/20 18:18 18:18 22:30 WBC 11.5 H RBC 2.06 L Hgb 5.5 L* D Hct 17.3 L* D MCV MCH 27 L MCHC RDW 19.5 H Plt Count 60 L Lymph % (Auto) [place] % (Auto) Lymph # (Auto) [place] # (Auto) Baso # (Auto) Seg Neutrophils % Seg Neuts % (Manual) Lymphocytes % (Manual) 8.0 L Monocytes % (Manual) 8.0 H Nucleated RBC % 8.0 H Seg Neutrophils # Seg Neutrophils # Man Lymphocytes # (Manual) 0.9 L Monocytes # (Manual) 0.9 H PT 37.1 H INR 3.71 H APTT 135.8 H* Fibrinogen D-Dimer ABG pH 7.067 L* POC ABG pCO2 POC ABG pO2 ABG pO2 183.0 H ABG HCO3 14.1 L ABG Base Excess -15.1 L ABG Hemoglobin 7.7 L ABG Oxyhemoglobin ABG Sodium ABG Potassium ABG Chloride ABG Glucose VBG pH Oxyhemoglobin Carboxyhemoglobin Sodium Potassium Chloride Carbon Dioxide BUN Creatinine Glucose POC Glucose Random Insulin C-Peptide Lactic Acid Calcium Ionized Calcium Phosphorus Magnesium AST ALT Alkaline Phosphatase Lactate Dehydrogenase NT-Pro-B Natriuret Pep Total Protein Albumin Arterial Blood Glucose Arterial Blood Ionized Calcium Urine WBC (Auto) Vancomycin Trough Phenytoin Crossmatch 10/02/20 10/02/20 10/03/20 Unknown Unknown 00:01 WBC RBC Hgb Hct MCV MCH MCHC RDW Plt Count Lymph % (Auto) [place] % (Auto) Lymph # (Auto) [place] # (Auto) Baso # (Auto) Seg Neutrophils % Seg Neuts % (Manual) Lymphocytes % (Manual) Monocytes % (Manual) Nucleated RBC % Seg Neutrophils # Seg Neutrophils # Man Lymphocytes # (Manual) Monocytes # (Manual) PT 61.1 H INR 6.92 H* APTT 158.7 H* Fibrinogen < 60 L* D-Dimer > 55196 H ABG pH POC ABG pCO2 POC ABG pO2 ABG pO2 ABG HCO3 ABG Base Excess ABG Hemoglobin ABG Oxyhemoglobin ABG Sodium ABG Potassium ABG Chloride ABG Glucose VBG pH 6.949 L* Oxyhemoglobin Carboxyhemoglobin Sodium Potassium Chloride Carbon Dioxide BUN Creatinine Glucose POC Glucose 196 H Random Insulin C-Peptide Lactic Acid Calcium Ionized Calcium Phosphorus Magnesium AST ALT Alkaline Phosphatase Lactate Dehydrogenase NT-Pro-B Natriuret Pep Total Protein Albumin Arterial Blood Glucose Arterial Blood Ionized Calcium Urine WBC (Auto) Vancomycin Trough Phenytoin Crossmatch 10/03/20 10/03/20 10/03/20 00:40 00:40 00:40 WBC RBC Hgb Hct MCV MCH MCHC RDW Plt Count Lymph % (Auto) [place] % (Auto) Lymph # (Auto) [place] # (Auto) Baso # (Auto) Seg Neutrophils % Seg Neuts % (Manual) Lymphocytes % (Manual) Monocytes % (Manual) Nucleated RBC % Seg Neutrophils # Seg Neutrophils # Man Lymphocytes # (Manual) Monocytes # (Manual) PT 15.1 H INR 1.21 H APTT Fibrinogen D-Dimer ABG pH POC ABG pCO2 POC ABG pO2 ABG pO2 ABG HCO3 ABG Base Excess ABG Hemoglobin ABG Oxyhemoglobin ABG Sodium ABG Potassium ABG Chloride ABG Glucose VBG pH Oxyhemoglobin Carboxyhemoglobin Sodium 136 L Potassium Chloride Carbon Dioxide BUN Creatinine 1.6 H D Glucose 106 H POC Glucose Random Insulin C-Peptide Lactic Acid 5.60 H* Calcium 6.5 L Ionized Calcium Phosphorus Magnesium AST 232 H ALT 104 H Alkaline Phosphatase Lactate Dehydrogenase NT-Pro-B Natriuret Pep Total Protein 3.9 L D Albumin 2.4 L Arterial Blood Glucose Arterial Blood Ionized Calcium Urine WBC (Auto) Vancomycin Trough Phenytoin Crossmatch 10/03/20 10/03/20 10/03/20 02:08 02:08 02:08 WBC 17.6 H RBC 3.27 L Hgb 9.9 L D Hct 29.9 L D MCV MCH MCHC RDW 16.5 H Plt Count 75 L Lymph % (Auto) [place] % (Auto) Lymph # (Auto) [place] # (Auto) Baso # (Auto) Seg Neutrophils % Seg Neuts % (Manual) 76.0 H Lymphocytes % (Manual) Monocytes % (Manual) Nucleated RBC % 8.0 H Seg Neutrophils # Seg Neutrophils # Man 13.4 H Lymphocytes # (Manual) Monocytes # (Manual) PT INR APTT Fibrinogen D-Dimer ABG pH POC ABG pCO2 POC ABG pO2 ABG pO2 ABG HCO3 ABG Base Excess ABG Hemoglobin ABG Oxyhemoglobin ABG Sodium ABG Potassium ABG Chloride ABG Glucose VBG pH Oxyhemoglobin Carboxyhemoglobin Sodium Potassium Chloride Carbon Dioxide 19 L BUN Creatinine 1.4 H Glucose 306 H POC Glucose Random Insulin C-Peptide Lactic Acid 10.50 H* Calcium 6.4 L Ionized Calcium Phosphorus Magnesium AST ALT Alkaline Phosphatase Lactate Dehydrogenase NT-Pro-B Natriuret Pep Total Protein Albumin Arterial Blood Glucose Arterial Blood Ionized Calcium Urine WBC (Auto) Vancomycin Trough Phenytoin Crossmatch 10/03/20 10/03/20 10/03/20 02:42 03:59 05:31 WBC RBC Hgb Hct MCV MCH MCHC RDW Plt Count Lymph % (Auto) [place] % (Auto) Lymph # (Auto) [place] # (Auto) Baso # (Auto) Seg Neutrophils % Seg Neuts % (Manual) Lymphocytes % (Manual) Monocytes % (Manual) Nucleated RBC % Seg Neutrophils # Seg Neutrophils # Man Lymphocytes # (Manual) Monocytes # (Manual) PT INR APTT Fibrinogen D-Dimer ABG pH 7.144 L POC ABG pCO2 54.4 H POC ABG pO2 ABG pO2 ABG HCO3 ABG Base Excess ABG Hemoglobin 10.0 L ABG Oxyhemoglobin ABG Sodium ABG Potassium ABG Chloride 108.0 H ABG Glucose 306 H VBG pH Oxyhemoglobin Carboxyhemoglobin Sodium Potassium Chloride Carbon Dioxide BUN Creatinine Glucose POC Glucose 209 H Random Insulin C-Peptide Lactic Acid 9.20 H* Calcium Ionized Calcium Phosphorus Magnesium AST ALT Alkaline Phosphatase Lactate Dehydrogenase NT-Pro-B Natriuret Pep Total Protein Albumin Arterial Blood Glucose 306 H Arterial Blood Ionized Calcium 3.7 L Urine WBC (Auto) Vancomycin Trough Phenytoin Crossmatch 10/03/20 10/03/20 10/03/20 09:00 09:00 09:00 WBC 27.4 H RBC 2.84 L Hgb 8.5 L Hct 25.1 L MCV MCH MCHC RDW 16.1 H Plt Count 72 L Lymph % (Auto) [place] % (Auto) Lymph # (Auto) [place] # (Auto) Baso # (Auto) Seg Neutrophils % Seg Neuts % (Manual) Lymphocytes % (Manual) 11.0 L Monocytes % (Manual) Nucleated RBC % 3.0 H Seg Neutrophils # Seg Neutrophils # Man 18.4 H Lymphocytes # (Manual) Monocytes # (Manual) 1.9 H PT INR APTT Fibrinogen D-Dimer ABG pH POC ABG pCO2 POC ABG pO2 ABG pO2 ABG HCO3 ABG Base Excess ABG Hemoglobin ABG Oxyhemoglobin ABG Sodium ABG Potassium ABG Chloride ABG Glucose VBG pH Oxyhemoglobin Carboxyhemoglobin Sodium Potassium Chloride Carbon Dioxide BUN Creatinine 1.7 H Glucose 216 H POC Glucose Random Insulin C-Peptide Lactic Acid 9.20 H* Calcium 6.3 L Ionized Calcium Phosphorus Magnesium AST 331 H ALT 171 H Alkaline Phosphatase Lactate Dehydrogenase NT-Pro-B Natriuret Pep Total Protein 3.7 L Albumin 1.9 L Arterial Blood Glucose Arterial Blood Ionized Calcium Urine WBC (Auto) Vancomycin Trough Phenytoin Crossmatch 10/03/20 10/03/20 10/03/20 11:20 11:46 11:50 WBC 28.7 H RBC 2.67 L Hgb 8.0 L Hct 23.7 L MCV MCH MCHC RDW 16.6 H Plt Count 76 L Lymph % (Auto) [place] % (Auto) Lymph # (Auto) [place] # (Auto) Baso # (Auto) Seg Neutrophils % Seg Neuts % (Manual) Lymphocytes % (Manual) Monocytes % (Manual) Nucleated RBC % Seg Neutrophils # Seg Neutrophils # Man Lymphocytes # (Manual) Monocytes # (Manual) PT INR APTT Fibrinogen D-Dimer ABG pH POC ABG pCO2 POC ABG pO2 ABG pO2 ABG HCO3 ABG Base Excess ABG Hemoglobin ABG Oxyhemoglobin ABG Sodium ABG Potassium ABG Chloride ABG Glucose VBG pH Oxyhemoglobin Carboxyhemoglobin Sodium Potassium Chloride Carbon Dioxide BUN Creatinine Glucose POC Glucose 125 H Random Insulin C-Peptide Lactic Acid 8.00 H* Calcium Ionized Calcium Phosphorus Magnesium AST ALT Alkaline Phosphatase Lactate Dehydrogenase NT-Pro-B Natriuret Pep Total Protein Albumin Arterial Blood Glucose Arterial Blood Ionized Calcium Urine WBC (Auto) Vancomycin Trough Phenytoin Crossmatch 10/03/20 10/04/20 10/04/20 11:50 00:40 00:40 WBC RBC Hgb 6.8 L Hct 19.4 L* MCV MCH MCHC RDW Plt Count 49 L Lymph % (Auto) [place] % (Auto) Lymph # (Auto) [place] # (Auto) Baso # (Auto) Seg Neutrophils % Seg Neuts % (Manual) Lymphocytes % (Manual) Monocytes % (Manual) Nucleated RBC % Seg Neutrophils # Seg Neutrophils # Man Lymphocytes # (Manual) Monocytes # (Manual) PT INR APTT Fibrinogen D-Dimer ABG pH 7.244 L POC ABG pCO2 POC ABG pO2 ABG pO2 ABG HCO3 ABG Base Excess -4.5 L ABG Hemoglobin 7.3 L ABG Oxyhemoglobin ABG Sodium ABG Potassium ABG Chloride ABG Glucose VBG pH Oxyhemoglobin Carboxyhemoglobin Sodium Potassium Chloride Carbon Dioxide BUN Creatinine Glucose POC Glucose Random Insulin C-Peptide Lactic Acid Calcium Ionized Calcium Phosphorus Magnesium AST ALT Alkaline Phosphatase Lactate Dehydrogenase NT-Pro-B Natriuret Pep Total Protein Albumin Arterial Blood Glucose Arterial Blood Ionized Calcium Urine WBC (Auto) Vancomycin Trough Phenytoin Crossmatch 10/04/20 10/04/20 10/04/20 03:53 10:00 10:00 WBC 14.6 H RBC 2.57 L Hgb 7.6 L Hct 22.5 L MCV MCH MCHC RDW 15.8 H Plt Count 38 L Lymph % (Auto) 7.7 L [place] % (Auto) Lymph # (Auto) 1.1 L [place] # (Auto) 0.9 H Baso # (Auto) Seg Neutrophils % 85.6 H Seg Neuts % (Manual) Lymphocytes % (Manual) Monocytes % (Manual) Nucleated RBC % Seg Neutrophils # 12.5 H Seg Neutrophils # Man Lymphocytes # (Manual) Monocytes # (Manual) PT INR APTT Fibrinogen D-Dimer ABG pH POC ABG pCO2 POC ABG pO2 110.6 H ABG pO2 ABG HCO3 ABG Base Excess ABG Hemoglobin 6.7 L ABG Oxyhemoglobin ABG Sodium 132.0 L ABG Potassium ABG Chloride ABG Glucose 111 H VBG pH Oxyhemoglobin Carboxyhemoglobin Sodium 134 L D Potassium Chloride 97.6 L Carbon Dioxide BUN Creatinine 1.7 H Glucose POC Glucose Random Insulin C-Peptide Lactic Acid Calcium 6.3 L Ionized Calcium Phosphorus Magnesium AST 203 H ALT 81 H Alkaline Phosphatase Lactate Dehydrogenase NT-Pro-B Natriuret Pep Total Protein 3.9 L Albumin 2.3 L Arterial Blood Glucose 111 H Arterial Blood Ionized Calcium 3.5 L Urine WBC (Auto) Vancomycin Trough Phenytoin Crossmatch 10/04/20 10/04/20 10/04/20 10:00 10:00 10:14 WBC RBC Hgb Hct MCV MCH MCHC RDW Plt Count Lymph % (Auto) [place] % (Auto) Lymph # (Auto) [place] # (Auto) Baso # (Auto) Seg Neutrophils % Seg Neuts % (Manual) Lymphocytes % (Manual) Monocytes % (Manual) Nucleated RBC % Seg Neutrophils # Seg Neutrophils # Man Lymphocytes # (Manual) Monocytes # (Manual) PT INR APTT Fibrinogen D-Dimer > 90379 H ABG pH POC ABG pCO2 POC ABG pO2 ABG pO2 ABG HCO3 ABG Base Excess ABG Hemoglobin ABG Oxyhemoglobin ABG Sodium ABG Potassium ABG Chloride ABG Glucose VBG pH Oxyhemoglobin Carboxyhemoglobin Sodium Potassium Chloride Carbon Dioxide BUN Creatinine Glucose POC Glucose Random Insulin C-Peptide Lactic Acid 3.90 H* Calcium Ionized Calcium Phosphorus Magnesium AST ALT Alkaline Phosphatase Lactate Dehydrogenase NT-Pro-B Natriuret Pep 2788 H Total Protein Albumin Arterial Blood Glucose Arterial Blood Ionized Calcium Urine WBC (Auto) Vancomycin Trough Phenytoin Crossmatch 10/04/20 10/04/20 10/04/20 14:00 14:00 18:00 WBC 15.7 H RBC 3.17 L Hgb 9.3 L 9.6 L Hct 27.2 L 28.0 L MCV MCH MCHC RDW 16.9 H Plt Count 41 L Lymph % (Auto) 8.6 L [place] % (Auto) Lymph # (Auto) [place] # (Auto) 0.9 H Baso # (Auto) Seg Neutrophils % 85.4 H Seg Neuts % (Manual) Lymphocytes % (Manual) Monocytes % (Manual) Nucleated RBC % Seg Neutrophils # 13.4 H Seg Neutrophils # Man Lymphocytes # (Manual) Monocytes # (Manual) PT INR APTT Fibrinogen D-Dimer ABG pH POC ABG pCO2 POC ABG pO2 ABG pO2 ABG HCO3 ABG Base Excess ABG Hemoglobin ABG Oxyhemoglobin ABG Sodium ABG Potassium ABG Chloride ABG Glucose VBG pH Oxyhemoglobin Carboxyhemoglobin Sodium 133 L Potassium Chloride 96.4 L Carbon Dioxide BUN 18 H Creatinine 1.7 H Glucose POC Glucose Random Insulin C-Peptide Lactic Acid Calcium 6.3 L Ionized Calcium Phosphorus Magnesium AST ALT Alkaline Phosphatase Lactate Dehydrogenase NT-Pro-B Natriuret Pep Total Protein Albumin Arterial Blood Glucose Arterial Blood Ionized Calcium Urine WBC (Auto) Vancomycin Trough Phenytoin Crossmatch 10/04/20 10/04/20 10/05/20 18:00 22:00 05:00 WBC 17.6 H RBC 3.34 L Hgb 9.9 L Hct 29.4 L MCV MCH MCHC RDW 17.1 H Plt Count 56 L Lymph % (Auto) 8.5 L [place] % (Auto) Lymph # (Auto) [place] # (Auto) 1.0 H Baso # (Auto) Seg Neutrophils % 85.1 H Seg Neuts % (Manual) Lymphocytes % (Manual) Monocytes % (Manual) Nucleated RBC % Seg Neutrophils # 15.0 H Seg Neutrophils # Man Lymphocytes # (Manual) Monocytes # (Manual) PT INR APTT Fibrinogen D-Dimer ABG pH POC ABG pCO2 POC ABG pO2 ABG pO2 ABG HCO3 ABG Base Excess ABG Hemoglobin ABG Oxyhemoglobin ABG Sodium ABG Potassium ABG Chloride ABG Glucose VBG pH Oxyhemoglobin Carboxyhemoglobin Sodium 136 L Potassium Chloride Carbon Dioxide BUN 18 H Creatinine 1.7 H Glucose POC Glucose Random Insulin C-Peptide Lactic Acid 2.30 H* Calcium 6.6 L Ionized Calcium Phosphorus Magnesium AST ALT Alkaline Phosphatase Lactate Dehydrogenase NT-Pro-B Natriuret Pep Total Protein Albumin Arterial Blood Glucose Arterial Blood Ionized Calcium Urine WBC (Auto) Vancomycin Trough Phenytoin Crossmatch 10/05/20 10/05/20 10/05/20 05:00 05:00 05:03 WBC RBC Hgb Hct MCV MCH MCHC RDW Plt Count Lymph % (Auto) [place] % (Auto) Lymph # (Auto) [place] # (Auto) Baso # (Auto) Seg Neutrophils % Seg Neuts % (Manual) Lymphocytes % (Manual) Monocytes % (Manual) Nucleated RBC % Seg Neutrophils # Seg Neutrophils # Man Lymphocytes # (Manual) Monocytes # (Manual) PT INR APTT Fibrinogen D-Dimer ABG pH 7.458 H POC ABG pCO2 POC ABG pO2 ABG pO2 74.3 L ABG HCO3 27.5 H ABG Base Excess 3.4 H ABG Hemoglobin 10.0 L ABG Oxyhemoglobin ABG Sodium ABG Potassium ABG Chloride ABG Glucose VBG pH Oxyhemoglobin 94.9 L Carboxyhemoglobin Sodium Potassium Chloride Carbon Dioxide BUN 19 H Creatinine 1.8 H Glucose POC Glucose Random Insulin C-Peptide Lactic Acid Calcium 6.8 L Ionized Calcium 3.9 L Phosphorus Magnesium AST 225 H ALT 85 H Alkaline Phosphatase Lactate Dehydrogenase NT-Pro-B Natriuret Pep Total Protein 4.5 L Albumin 2.7 L Arterial Blood Glucose Arterial Blood Ionized Calcium Urine WBC (Auto) Vancomycin Trough Phenytoin Crossmatch 10/05/20 10/05/20 10/05/20 10:10 15:00 19:40 WBC RBC Hgb Hct MCV MCH MCHC RDW Plt Count Lymph % (Auto) [place] % (Auto) Lymph # (Auto) [place] # (Auto) Baso # (Auto) Seg Neutrophils % Seg Neuts % (Manual) Lymphocytes % (Manual) Monocytes % (Manual) Nucleated RBC % Seg Neutrophils # Seg Neutrophils # Man Lymphocytes # (Manual) Monocytes # (Manual) PT INR APTT Fibrinogen D-Dimer ABG pH POC ABG pCO2 POC ABG pO2 ABG pO2 ABG HCO3 ABG Base Excess ABG Hemoglobin ABG Oxyhemoglobin ABG Sodium ABG Potassium ABG Chloride ABG Glucose VBG pH Oxyhemoglobin Carboxyhemoglobin Sodium Potassium 3.5 L Chloride Carbon Dioxide 31 H 32 H BUN 19 H 19 H Creatinine 1.8 H 1.8 H Glucose POC Glucose Random Insulin C-Peptide Lactic Acid Calcium 7.0 L 7.2 L Ionized Calcium Phosphorus Magnesium 2.90 H AST ALT Alkaline Phosphatase Lactate Dehydrogenase NT-Pro-B Natriuret Pep Total Protein Albumin Arterial Blood Glucose Arterial Blood Ionized Calcium Urine WBC (Auto) Vancomycin Trough Phenytoin Crossmatch 10/06/20 10/06/20 10/06/20 01:05 03:12 04:00 WBC 17.1 H RBC 3.47 L Hgb Hct MCV MCH MCHC RDW 17.4 H Plt Count 82 L Lymph % (Auto) 8.3 L [place] % (Auto) Lymph # (Auto) [place] # (Auto) 1.1 H Baso # (Auto) Seg Neutrophils % 83.8 H Seg Neuts % (Manual) Lymphocytes % (Manual) Monocytes % (Manual) Nucleated RBC % Seg Neutrophils # 14.3 H Seg Neutrophils # Man Lymphocytes # (Manual) Monocytes # (Manual) PT INR APTT Fibrinogen D-Dimer ABG pH 7.474 H POC ABG pCO2 POC ABG pO2 129.5 H ABG pO2 ABG HCO3 ABG Base Excess ABG Hemoglobin 11.4 L ABG Oxyhemoglobin ABG Sodium 131.8 L ABG Potassium ABG Chloride ABG Glucose 103 H VBG pH Oxyhemoglobin Carboxyhemoglobin 0.3 L Sodium Potassium Chloride Carbon Dioxide BUN Creatinine Glucose POC Glucose Random Insulin C-Peptide Lactic Acid Calcium Ionized Calcium Phosphorus Magnesium 3.70 H AST ALT Alkaline Phosphatase Lactate Dehydrogenase NT-Pro-B Natriuret Pep Total Protein Albumin Arterial Blood Glucose 103 H Arterial Blood Ionized Calcium 4.2 L Urine WBC (Auto) Vancomycin Trough Phenytoin Crossmatch 10/06/20 10/06/20 10/06/20 04:00 05:31 08:12 WBC RBC Hgb Hct MCV MCH MCHC RDW Plt Count Lymph % (Auto) [place] % (Auto) Lymph # (Auto) [place] # (Auto) Baso # (Auto) Seg Neutrophils % Seg Neuts % (Manual) Lymphocytes % (Manual) Monocytes % (Manual) Nucleated RBC % Seg Neutrophils # Seg Neutrophils # Man Lymphocytes # (Manual) Monocytes # (Manual) PT INR APTT Fibrinogen D-Dimer ABG pH POC ABG pCO2 POC ABG pO2 ABG pO2 ABG HCO3 ABG Base Excess ABG Hemoglobin ABG Oxyhemoglobin ABG Sodium ABG Potassium ABG Chloride ABG Glucose VBG pH Oxyhemoglobin Carboxyhemoglobin Sodium Potassium 3.5 L Chloride Carbon Dioxide BUN 19 H Creatinine 1.8 H Glucose 102 H POC Glucose 116 H Random Insulin C-Peptide Lactic Acid Calcium 7.2 L Ionized Calcium Phosphorus Magnesium 5.40 H AST 307 H ALT 137 H Alkaline Phosphatase Lactate Dehydrogenase NT-Pro-B Natriuret Pep Total Protein 4.5 L Albumin 2.6 L Arterial Blood Glucose Arterial Blood Ionized Calcium Urine WBC (Auto) Vancomycin Trough Phenytoin Crossmatch 10/06/20 10/06/20 10/06/20 11:00 11:50 20:13 WBC RBC Hgb Hct MCV MCH MCHC RDW Plt Count Lymph % (Auto) [place] % (Auto) Lymph # (Auto) [place] # (Auto) Baso # (Auto) Seg Neutrophils % Seg Neuts % (Manual) Lymphocytes % (Manual) Monocytes % (Manual) Nucleated RBC % Seg Neutrophils # Seg Neutrophils # Man Lymphocytes # (Manual) Monocytes # (Manual) PT INR APTT Fibrinogen D-Dimer ABG pH POC ABG pCO2 POC ABG pO2 ABG pO2 ABG HCO3 ABG Base Excess ABG Hemoglobin ABG Oxyhemoglobin ABG Sodium ABG Potassium ABG Chloride ABG Glucose VBG pH Oxyhemoglobin Carboxyhemoglobin Sodium Potassium Chloride Carbon Dioxide BUN Creatinine Glucose POC Glucose 106 H Random Insulin C-Peptide Lactic Acid Calcium Ionized Calcium Phosphorus Magnesium 6.50 H 6.20 H AST ALT Alkaline Phosphatase Lactate Dehydrogenase NT-Pro-B Natriuret Pep Total Protein Albumin Arterial Blood Glucose Arterial Blood Ionized Calcium Urine WBC (Auto) Vancomycin Trough Phenytoin Crossmatch 10/06/20 10/06/20 10/06/20 20:17 22:29 23:57 WBC RBC Hgb Hct MCV MCH MCHC RDW Plt Count Lymph % (Auto) [place] % (Auto) Lymph # (Auto) [place] # (Auto) Baso # (Auto) Seg Neutrophils % Seg Neuts % (Manual) Lymphocytes % (Manual) Monocytes % (Manual) Nucleated RBC % Seg Neutrophils # Seg Neutrophils # Man Lymphocytes # (Manual) Monocytes # (Manual) PT INR APTT Fibrinogen D-Dimer ABG pH POC ABG pCO2 POC ABG pO2 ABG pO2 ABG HCO3 ABG Base Excess ABG Hemoglobin ABG Oxyhemoglobin ABG Sodium ABG Potassium ABG Chloride ABG Glucose VBG pH Oxyhemoglobin Carboxyhemoglobin Sodium Potassium Chloride Carbon Dioxide BUN Creatinine Glucose POC Glucose 112 H 126 H 133 H Random Insulin C-Peptide Lactic Acid Calcium Ionized Calcium Phosphorus Magnesium AST ALT Alkaline Phosphatase Lactate Dehydrogenase NT-Pro-B Natriuret Pep Total Protein Albumin Arterial Blood Glucose Arterial Blood Ionized Calcium Urine WBC (Auto) Vancomycin Trough Phenytoin Crossmatch 10/07/20 10/07/20 10/07/20 00:35 02:22 03:16 WBC RBC Hgb Hct MCV MCH MCHC RDW Plt Count Lymph % (Auto) [place] % (Auto) Lymph # (Auto) [place] # (Auto) Baso # (Auto) Seg Neutrophils % Seg Neuts % (Manual) Lymphocytes % (Manual) Monocytes % (Manual) Nucleated RBC % Seg Neutrophils # Seg Neutrophils # Man Lymphocytes # (Manual) Monocytes # (Manual) PT INR APTT Fibrinogen D-Dimer ABG pH POC ABG pCO2 POC ABG pO2 ABG pO2 ABG HCO3 ABG Base Excess ABG Hemoglobin 11.6 L ABG Oxyhemoglobin ABG Sodium ABG Potassium ABG Chloride ABG Glucose 156 H VBG pH Oxyhemoglobin Carboxyhemoglobin 0.3 L Sodium Potassium Chloride Carbon Dioxide BUN Creatinine Glucose POC Glucose 124 H Random Insulin C-Peptide Lactic Acid Calcium Ionized Calcium Phosphorus Magnesium 5.90 H AST ALT Alkaline Phosphatase Lactate Dehydrogenase NT-Pro-B Natriuret Pep Total Protein Albumin Arterial Blood Glucose 156 H Arterial Blood Ionized Calcium 4.2 L Urine WBC (Auto) Vancomycin Trough Phenytoin Crossmatch 10/07/20 10/07/20 10/07/20 04:06 05:45 07:05 WBC 19.2 H RBC 3.57 L Hgb Hct MCV MCH MCHC 35 H RDW 17.1 H Plt Count 129 L Lymph % (Auto) [place] % (Auto) Lymph # (Auto) [place] # (Auto) Baso # (Auto) Seg Neutrophils % Seg Neuts % (Manual) 94.0 H Lymphocytes % (Manual) 6.0 L Monocytes % (Manual) Nucleated RBC % Seg Neutrophils # Seg Neutrophils # Man 18.0 H Lymphocytes # (Manual) Monocytes # (Manual) PT INR APTT Fibrinogen D-Dimer ABG pH POC ABG pCO2 POC ABG pO2 ABG pO2 ABG HCO3 ABG Base Excess ABG Hemoglobin ABG Oxyhemoglobin ABG Sodium ABG Potassium ABG Chloride ABG Glucose VBG pH Oxyhemoglobin Carboxyhemoglobin Sodium Potassium Chloride Carbon Dioxide BUN Creatinine Glucose POC Glucose 135 H 149 H Random Insulin C-Peptide Lactic Acid Calcium Ionized Calcium Phosphorus Magnesium AST ALT Alkaline Phosphatase Lactate Dehydrogenase NT-Pro-B Natriuret Pep Total Protein Albumin Arterial Blood Glucose Arterial Blood Ionized Calcium Urine WBC (Auto) Vancomycin Trough Phenytoin Crossmatch 10/07/20 10/07/20 10/07/20 07:05 07:05 12:21 WBC RBC Hgb Hct MCV MCH MCHC RDW Plt Count Lymph % (Auto) [place] % (Auto) Lymph # (Auto) [place] # (Auto) Baso # (Auto) Seg Neutrophils % Seg Neuts % (Manual) Lymphocytes % (Manual) Monocytes % (Manual) Nucleated RBC % Seg Neutrophils # Seg Neutrophils # Man Lymphocytes # (Manual) Monocytes # (Manual) PT INR APTT Fibrinogen D-Dimer ABG pH POC ABG pCO2 POC ABG pO2 ABG pO2 ABG HCO3 ABG Base Excess ABG Hemoglobin ABG Oxyhemoglobin ABG Sodium ABG Potassium ABG Chloride ABG Glucose VBG pH Oxyhemoglobin Carboxyhemoglobin Sodium Potassium Chloride Carbon Dioxide BUN 21 H Creatinine 1.7 H Glucose 171 H POC Glucose 124 H Random Insulin C-Peptide Lactic Acid Calcium 7.4 L Ionized Calcium Phosphorus Magnesium 6.10 H AST 245 H ALT 147 H Alkaline Phosphatase Lactate Dehydrogenase NT-Pro-B Natriuret Pep Total Protein 5.3 L Albumin 2.8 L Arterial Blood Glucose Arterial Blood Ionized Calcium Urine WBC (Auto) Vancomycin Trough Phenytoin Crossmatch 10/07/20 10/07/20 10/07/20 19:52 21:00 21:50 WBC RBC Hgb Hct MCV MCH MCHC RDW Plt Count Lymph % (Auto) [place] % (Auto) Lymph # (Auto) [place] # (Auto) Baso # (Auto) Seg Neutrophils % Seg Neuts % (Manual) Lymphocytes % (Manual) Monocytes % (Manual) Nucleated RBC % Seg Neutrophils # Seg Neutrophils # Man Lymphocytes # (Manual) Monocytes # (Manual) PT INR APTT Fibrinogen D-Dimer ABG pH POC ABG pCO2 POC ABG pO2 ABG pO2 ABG HCO3 ABG Base Excess ABG Hemoglobin ABG Oxyhemoglobin ABG Sodium ABG Potassium ABG Chloride ABG Glucose VBG pH Oxyhemoglobin Carboxyhemoglobin Sodium Potassium Chloride Carbon Dioxide BUN Creatinine Glucose POC Glucose 193 H 138 H Random Insulin C-Peptide Lactic Acid Calcium Ionized Calcium 4.4 L Phosphorus Magnesium AST ALT Alkaline Phosphatase Lactate Dehydrogenase NT-Pro-B Natriuret Pep Total Protein Albumin Arterial Blood Glucose Arterial Blood Ionized Calcium Urine WBC (Auto) Vancomycin Trough Phenytoin Crossmatch 10/07/20 10/08/20 10/08/20 23:41 04:20 05:30 WBC RBC Hgb Hct MCV MCH MCHC RDW Plt Count Lymph % (Auto) [place] % (Auto) Lymph # (Auto) [place] # (Auto) Baso # (Auto) Seg Neutrophils % Seg Neuts % (Manual) Lymphocytes % (Manual) Monocytes % (Manual) Nucleated RBC % Seg Neutrophils # Seg Neutrophils # Man Lymphocytes # (Manual) Monocytes # (Manual) PT INR APTT Fibrinogen D-Dimer ABG pH 7.467 H POC ABG pCO2 POC ABG pO2 189.8 H ABG pO2 ABG HCO3 ABG Base Excess ABG Hemoglobin 10.8 L ABG Oxyhemoglobin ABG Sodium ABG Potassium ABG Chloride ABG Glucose 133 H VBG pH Oxyhemoglobin Carboxyhemoglobin Sodium Potassium Chloride Carbon Dioxide BUN Creatinine Glucose POC Glucose 118 H 114 H Random Insulin C-Peptide Lactic Acid Calcium Ionized Calcium Phosphorus Magnesium AST ALT Alkaline Phosphatase Lactate Dehydrogenase NT-Pro-B Natriuret Pep Total Protein Albumin Arterial Blood Glucose 133 H Arterial Blood Ionized Calcium 4.2 L Urine WBC (Auto) Vancomycin Trough Phenytoin Crossmatch 10/08/20 10/08/20 10/08/20 05:43 06:42 06:42 WBC 23.6 H RBC 3.54 L Hgb Hct MCV MCH MCHC RDW 17.8 H Plt Count Lymph % (Auto) [place] % (Auto) Lymph # (Auto) [place] # (Auto) Baso # (Auto) Seg Neutrophils % Seg Neuts % (Manual) 93.0 H Lymphocytes % (Manual) 3.0 L Monocytes % (Manual) Nucleated RBC % 1.0 H Seg Neutrophils # Seg Neutrophils # Man 21.9 H Lymphocytes # (Manual) 0.7 L Monocytes # (Manual) 0.9 H PT INR APTT Fibrinogen D-Dimer ABG pH POC ABG pCO2 POC ABG pO2 ABG pO2 ABG HCO3 ABG Base Excess ABG Hemoglobin ABG Oxyhemoglobin ABG Sodium ABG Potassium ABG Chloride ABG Glucose VBG pH Oxyhemoglobin Carboxyhemoglobin Sodium Potassium Chloride Carbon Dioxide BUN 28 H Creatinine 1.6 H Glucose 141 H POC Glucose 126 H Random Insulin C-Peptide Lactic Acid Calcium 7.6 L Ionized Calcium Phosphorus Magnesium AST 162 H ALT 103 H Alkaline Phosphatase Lactate Dehydrogenase NT-Pro-B Natriuret Pep Total Protein 5.4 L Albumin 2.7 L Arterial Blood Glucose Arterial Blood Ionized Calcium Urine WBC (Auto) Vancomycin Trough Phenytoin Crossmatch 10/08/20 10/08/20 10/08/20 11:20 16:05 20:14 WBC RBC Hgb Hct MCV MCH MCHC RDW Plt Count Lymph % (Auto) [place] % (Auto) Lymph # (Auto) [place] # (Auto) Baso # (Auto) Seg Neutrophils % Seg Neuts % (Manual) Lymphocytes % (Manual) Monocytes % (Manual) Nucleated RBC % Seg Neutrophils # Seg Neutrophils # Man Lymphocytes # (Manual) Monocytes # (Manual) PT INR APTT Fibrinogen D-Dimer ABG pH POC ABG pCO2 POC ABG pO2 ABG pO2 ABG HCO3 ABG Base Excess ABG Hemoglobin ABG Oxyhemoglobin ABG Sodium ABG Potassium ABG Chloride ABG Glucose VBG pH Oxyhemoglobin Carboxyhemoglobin Sodium Potassium Chloride Carbon Dioxide BUN Creatinine Glucose POC Glucose 127 H 172 H 147 H Random Insulin C-Peptide Lactic Acid Calcium Ionized Calcium Phosphorus Magnesium AST ALT Alkaline Phosphatase Lactate Dehydrogenase NT-Pro-B Natriuret Pep Total Protein Albumin Arterial Blood Glucose Arterial Blood Ionized Calcium Urine WBC (Auto) Vancomycin Trough Phenytoin Crossmatch 10/08/20 10/08/20 10/09/20 21:27 23:24 02:10 WBC RBC Hgb Hct MCV MCH MCHC RDW Plt Count Lymph % (Auto) [place] % (Auto) Lymph # (Auto) [place] # (Auto) Baso # (Auto) Seg Neutrophils % Seg Neuts % (Manual) Lymphocytes % (Manual) Monocytes % (Manual) Nucleated RBC % Seg Neutrophils # Seg Neutrophils # Man Lymphocytes # (Manual) Monocytes # (Manual) PT INR APTT Fibrinogen D-Dimer ABG pH POC ABG pCO2 POC ABG pO2 ABG pO2 ABG HCO3 ABG Base Excess ABG Hemoglobin ABG Oxyhemoglobin ABG Sodium ABG Potassium ABG Chloride ABG Glucose VBG pH Oxyhemoglobin Carboxyhemoglobin Sodium Potassium Chloride Carbon Dioxide BUN Creatinine Glucose POC Glucose 140 H 135 H 111 H Random Insulin C-Peptide Lactic Acid Calcium Ionized Calcium Phosphorus Magnesium AST ALT Alkaline Phosphatase Lactate Dehydrogenase NT-Pro-B Natriuret Pep Total Protein Albumin Arterial Blood Glucose Arterial Blood Ionized Calcium Urine WBC (Auto) Vancomycin Trough Phenytoin Crossmatch 10/09/20 10/09/20 10/09/20 03:44 04:39 05:46 WBC 19.7 H RBC 3.51 L Hgb Hct MCV MCH MCHC RDW 17.7 H Plt Count Lymph % (Auto) [place] % (Auto) Lymph # (Auto) [place] # (Auto) Baso # (Auto) Seg Neutrophils % Seg Neuts % (Manual) 86.0 H Lymphocytes % (Manual) 4.0 L Monocytes % (Manual) 9.0 H Nucleated RBC % Seg Neutrophils # Seg Neutrophils # Man 16.9 H Lymphocytes # (Manual) 0.8 L Monocytes # (Manual) 1.8 H PT INR APTT Fibrinogen D-Dimer ABG pH 7.513 H POC ABG pCO2 POC ABG pO2 33.6 L ABG pO2 ABG HCO3 ABG Base Excess ABG Hemoglobin 11.1 L ABG Oxyhemoglobin 70.2 L ABG Sodium ABG Potassium 3.2 L ABG Chloride 108.0 H ABG Glucose 108 H VBG pH Oxyhemoglobin Carboxyhemoglobin Sodium Potassium Chloride Carbon Dioxide BUN Creatinine Glucose POC Glucose 109 H Random Insulin C-Peptide Lactic Acid Calcium Ionized Calcium Phosphorus Magnesium AST ALT Alkaline Phosphatase Lactate Dehydrogenase NT-Pro-B Natriuret Pep Total Protein Albumin Arterial Blood Glucose 108 H Arterial Blood Ionized Calcium 4.3 L Urine WBC (Auto) Vancomycin Trough Phenytoin Crossmatch 10/09/20 10/10/20 10/10/20 05:46 04:00 04:00 WBC 18.4 H RBC Hgb Hct MCV MCH MCHC RDW 17.5 H Plt Count Lymph % (Auto) 9.8 L [place] % (Auto) 8.8 H Lymph # (Auto) [place] # (Auto) 1.6 H Baso # (Auto) Seg Neutrophils % 80.0 H Seg Neuts % (Manual) Lymphocytes % (Manual) Monocytes % (Manual) Nucleated RBC % Seg Neutrophils # 14.7 H Seg Neutrophils # Man Lymphocytes # (Manual) Monocytes # (Manual) PT INR APTT Fibrinogen D-Dimer ABG pH POC ABG pCO2 POC ABG pO2 ABG pO2 ABG HCO3 ABG Base Excess ABG Hemoglobin ABG Oxyhemoglobin ABG Sodium ABG Potassium ABG Chloride ABG Glucose VBG pH Oxyhemoglobin Carboxyhemoglobin Sodium 146 H Potassium 3.2 L 2.9 L* Chloride 108.9 H 112.6 H Carbon Dioxide BUN 34 H 28 H Creatinine 1.4 H 1.3 H Glucose 109 H 101 H POC Glucose Random Insulin C-Peptide Lactic Acid Calcium 7.6 L 7.8 L Ionized Calcium Phosphorus Magnesium AST 137 H 122 H ALT 99 H 81 H Alkaline Phosphatase Lactate Dehydrogenase NT-Pro-B Natriuret Pep Total Protein 5.1 L 5.2 L Albumin 2.6 L 2.7 L Arterial Blood Glucose Arterial Blood Ionized Calcium Urine WBC (Auto) Vancomycin Trough Phenytoin Crossmatch 10/10/20 10/10/20 10/11/20 04:42 09:50 00:44 WBC RBC Hgb Hct MCV MCH MCHC RDW Plt Count Lymph % (Auto) [place] % (Auto) Lymph # (Auto) [place] # (Auto) Baso # (Auto) Seg Neutrophils % Seg Neuts % (Manual) Lymphocytes % (Manual) Monocytes % (Manual) Nucleated RBC % Seg Neutrophils # Seg Neutrophils # Man Lymphocytes # (Manual) Monocytes # (Manual) PT INR APTT Fibrinogen D-Dimer ABG pH 7.534 H POC ABG pCO2 POC ABG pO2 ABG pO2 95.2 H ABG HCO3 ABG Base Excess ABG Hemoglobin 11.3 L ABG Oxyhemoglobin ABG Sodium ABG Potassium ABG Chloride ABG Glucose VBG pH Oxyhemoglobin Carboxyhemoglobin Sodium Potassium Chloride Carbon Dioxide BUN Creatinine Glucose POC Glucose 109 H 106 H Random Insulin C-Peptide Lactic Acid Calcium Ionized Calcium Phosphorus Magnesium AST ALT Alkaline Phosphatase Lactate Dehydrogenase NT-Pro-B Natriuret Pep Total Protein Albumin Arterial Blood Glucose Arterial Blood Ionized Calcium Urine WBC (Auto) Vancomycin Trough Phenytoin Crossmatch 10/11/20 10/11/20 10/11/20 04:00 04:00 06:08 WBC 27.0 H RBC Hgb Hct MCV MCH MCHC RDW 17.7 H Plt Count Lymph % (Auto) 6.3 L [place] % (Auto) Lymph # (Auto) [place] # (Auto) 1.5 H Baso # (Auto) Seg Neutrophils % 87.1 H Seg Neuts % (Manual) Lymphocytes % (Manual) Monocytes % (Manual) Nucleated RBC % Seg Neutrophils # 23.5 H Seg Neutrophils # Man Lymphocytes # (Manual) Monocytes # (Manual) PT INR APTT Fibrinogen D-Dimer ABG pH POC ABG pCO2 POC ABG pO2 ABG pO2 ABG HCO3 ABG Base Excess ABG Hemoglobin ABG Oxyhemoglobin ABG Sodium ABG Potassium ABG Chloride ABG Glucose VBG pH Oxyhemoglobin Carboxyhemoglobin Sodium Potassium 3.2 L Chloride 110.4 H Carbon Dioxide 19 L BUN 22 H Creatinine Glucose 116 H POC Glucose 107 H Random Insulin C-Peptide Lactic Acid Calcium 7.7 L Ionized Calcium Phosphorus Magnesium 1.60 L AST ALT Alkaline Phosphatase Lactate Dehydrogenase NT-Pro-B Natriuret Pep Total Protein Albumin Arterial Blood Glucose Arterial Blood Ionized Calcium Urine WBC (Auto) Vancomycin Trough Phenytoin Crossmatch 10/11/20 10/11/20 10/12/20 11:41 13:26 03:52 WBC RBC Hgb Hct MCV MCH MCHC RDW Plt Count Lymph % (Auto) [place] % (Auto) Lymph # (Auto) [place] # (Auto) Baso # (Auto) Seg Neutrophils % Seg Neuts % (Manual) Lymphocytes % (Manual) Monocytes % (Manual) Nucleated RBC % Seg Neutrophils # Seg Neutrophils # Man Lymphocytes # (Manual) Monocytes # (Manual) PT INR APTT Fibrinogen D-Dimer ABG pH POC ABG pCO2 POC ABG pO2 ABG pO2 ABG HCO3 ABG Base Excess ABG Hemoglobin ABG Oxyhemoglobin ABG Sodium ABG Potassium ABG Chloride ABG Glucose VBG pH Oxyhemoglobin Carboxyhemoglobin Sodium Potassium Chloride Carbon Dioxide BUN Creatinine Glucose POC Glucose 116 H 114 H Random Insulin C-Peptide Lactic Acid Calcium Ionized Calcium Phosphorus Magnesium AST ALT Alkaline Phosphatase Lactate Dehydrogenase NT-Pro-B Natriuret Pep Total Protein Albumin Arterial Blood Glucose Arterial Blood Ionized Calcium Urine WBC (Auto) 24.0 H Vancomycin Trough Phenytoin Crossmatch 10/12/20 10/12/20 10/12/20 04:24 14:47 21:33 WBC RBC Hgb Hct MCV MCH MCHC RDW Plt Count Lymph % (Auto) [place] % (Auto) Lymph # (Auto) [place] # (Auto) Baso # (Auto) Seg Neutrophils % Seg Neuts % (Manual) Lymphocytes % (Manual) Monocytes % (Manual) Nucleated RBC % Seg Neutrophils # Seg Neutrophils # Man Lymphocytes # (Manual) Monocytes # (Manual) PT INR APTT Fibrinogen D-Dimer ABG pH POC ABG pCO2 POC ABG pO2 ABG pO2 ABG HCO3 ABG Base Excess ABG Hemoglobin ABG Oxyhemoglobin ABG Sodium ABG Potassium ABG Chloride ABG Glucose VBG pH Oxyhemoglobin Carboxyhemoglobin Sodium Potassium Chloride 109.9 H Carbon Dioxide 13 L BUN 18 H Creatinine Glucose 119 H POC Glucose 107 H Random Insulin C-Peptide Lactic Acid Calcium 7.6 L Ionized Calcium Phosphorus Magnesium 1.60 L AST ALT Alkaline Phosphatase Lactate Dehydrogenase NT-Pro-B Natriuret Pep Total Protein Albumin Arterial Blood Glucose Arterial Blood Ionized Calcium Urine WBC (Auto) Vancomycin Trough Phenytoin Crossmatch 10/12/20 10/12/20 10/13/20 Unknown Unknown 07:00 WBC 24.3 H RBC 3.38 L Hgb 9.8 L Hct MCV MCH MCHC RDW 18.7 H Plt Count Lymph % (Auto) [place] % (Auto) Lymph # (Auto) [place] # (Auto) Baso # (Auto) Seg Neutrophils % Seg Neuts % (Manual) 93.5 H Lymphocytes % (Manual) 4.5 L Monocytes % (Manual) Nucleated RBC % Seg Neutrophils # Seg Neutrophils # Man 22.7 H Lymphocytes # (Manual) 1.1 L Monocytes # (Manual) PT INR APTT Fibrinogen D-Dimer ABG pH POC ABG pCO2 POC ABG pO2 ABG pO2 ABG HCO3 ABG Base Excess ABG Hemoglobin ABG Oxyhemoglobin ABG Sodium ABG Potassium ABG Chloride ABG Glucose VBG pH Oxyhemoglobin Carboxyhemoglobin Sodium 135 L D Potassium 3.1 L Chloride Carbon Dioxide 17 L BUN Creatinine Glucose 510 H* POC Glucose Random Insulin C-Peptide Lactic Acid Calcium 7.2 L Ionized Calcium Phosphorus Magnesium AST ALT Alkaline Phosphatase Lactate Dehydrogenase NT-Pro-B Natriuret Pep Total Protein Albumin Arterial Blood Glucose Arterial Blood Ionized Calcium Urine WBC (Auto) Vancomycin Trough Phenytoin 5.7 L Crossmatch 10/13/20 10/13/20 10/13/20 07:00 07:00 07:18 WBC 23.6 H RBC 3.26 L Hgb 9.4 L Hct 28.7 L MCV MCH MCHC RDW 18.3 H Plt Count Lymph % (Auto) [place] % (Auto) Lymph # (Auto) [place] # (Auto) Baso # (Auto) Seg Neutrophils % Seg Neuts % (Manual) Lymphocytes % (Manual) Monocytes % (Manual) Nucleated RBC % Seg Neutrophils # Seg Neutrophils # Man Lymphocytes # (Manual) Monocytes # (Manual) PT INR APTT Fibrinogen D-Dimer ABG pH 7.473 H POC ABG pCO2 20.7 L POC ABG pO2 137.9 H ABG pO2 ABG HCO3 ABG Base Excess ABG Hemoglobin 11.2 L ABG Oxyhemoglobin 98.3 H ABG Sodium 135.9 L ABG Potassium ABG Chloride 111.0 H ABG Glucose 109 H VBG pH Oxyhemoglobin Carboxyhemoglobin 0.3 L Sodium 135 L Potassium 3.5 L Chloride 109.1 H Carbon Dioxide 18 L BUN Creatinine Glucose POC Glucose Random Insulin C-Peptide Lactic Acid Calcium 7.3 L Ionized Calcium Phosphorus Magnesium 1.60 L AST ALT Alkaline Phosphatase Lactate Dehydrogenase NT-Pro-B Natriuret Pep Total Protein Albumin Arterial Blood Glucose 109 H Arterial Blood Ionized Calcium Urine WBC (Auto) Vancomycin Trough Phenytoin Crossmatch 10/14/20 10/14/20 10/15/20 04:00 04:00 05:50 WBC 28.6 H 23.2 H RBC 3.61 L 3.43 L Hgb 9.9 L Hct 30.0 L MCV MCH MCHC RDW 18.3 H 18.2 H Plt Count Lymph % (Auto) [place] % (Auto) Lymph # (Auto) [place] # (Auto) Baso # (Auto) Seg Neutrophils % Seg Neuts % (Manual) 88.0 H 90.0 H Lymphocytes % (Manual) 5.0 L 4.0 L Monocytes % (Manual) Nucleated RBC % Seg Neutrophils # Seg Neutrophils # Man 25.2 H 20.9 H Lymphocytes # (Manual) 0.9 L Monocytes # (Manual) 1.4 H 0.9 H PT INR APTT Fibrinogen D-Dimer ABG pH POC ABG pCO2 POC ABG pO2 ABG pO2 ABG HCO3 ABG Base Excess ABG Hemoglobin ABG Oxyhemoglobin ABG Sodium ABG Potassium ABG Chloride ABG Glucose VBG pH Oxyhemoglobin Carboxyhemoglobin Sodium Potassium Chloride 109.9 H Carbon Dioxide 17 L BUN Creatinine Glucose POC Glucose Random Insulin C-Peptide Lactic Acid Calcium Ionized Calcium Phosphorus Magnesium AST ALT Alkaline Phosphatase Lactate Dehydrogenase NT-Pro-B Natriuret Pep Total Protein Albumin Arterial Blood Glucose Arterial Blood Ionized Calcium Urine WBC (Auto) Vancomycin Trough Phenytoin Crossmatch 10/15/20 10/16/20 10/17/20 05:50 11:57 04:57 WBC 15.2 H RBC 3.43 L Hgb Hct MCV MCH MCHC RDW 18.1 H Plt Count Lymph % (Auto) [place] % (Auto) Lymph # (Auto) [place] # (Auto) Baso # (Auto) Seg Neutrophils % Seg Neuts % (Manual) Lymphocytes % (Manual) Monocytes % (Manual) Nucleated RBC % Seg Neutrophils # Seg Neutrophils # Man Lymphocytes # (Manual) Monocytes # (Manual) PT INR APTT Fibrinogen D-Dimer ABG pH POC ABG pCO2 POC ABG pO2 ABG pO2 ABG HCO3 ABG Base Excess ABG Hemoglobin ABG Oxyhemoglobin ABG Sodium ABG Potassium ABG Chloride ABG Glucose VBG pH Oxyhemoglobin Carboxyhemoglobin Sodium Potassium Chloride 110.3 H Carbon Dioxide 18 L BUN Creatinine Glucose 105 H POC Glucose 111 H Random Insulin C-Peptide Lactic Acid Calcium 8.3 L Ionized Calcium Phosphorus Magnesium AST ALT Alkaline Phosphatase Lactate Dehydrogenase NT-Pro-B Natriuret Pep Total Protein Albumin Arterial Blood Glucose Arterial Blood Ionized Calcium Urine WBC (Auto) Vancomycin Trough Phenytoin Crossmatch 10/17/20 10/17/20 10/18/20 05:25 21:16 01:31 WBC RBC Hgb Hct MCV MCH MCHC RDW Plt Count Lymph % (Auto) [place] % (Auto) Lymph # (Auto) [place] # (Auto) Baso # (Auto) Seg Neutrophils % Seg Neuts % (Manual) Lymphocytes % (Manual) Monocytes % (Manual) Nucleated RBC % Seg Neutrophils # Seg Neutrophils # Man Lymphocytes # (Manual) Monocytes # (Manual) PT INR APTT Fibrinogen D-Dimer ABG pH POC ABG pCO2 POC ABG pO2 ABG pO2 ABG HCO3 ABG Base Excess ABG Hemoglobin ABG Oxyhemoglobin ABG Sodium ABG Potassium ABG Chloride ABG Glucose VBG pH Oxyhemoglobin Carboxyhemoglobin Sodium Potassium Chloride Carbon Dioxide BUN Creatinine Glucose POC Glucose 107 H 106 H 119 H Random Insulin C-Peptide Lactic Acid Calcium Ionized Calcium Phosphorus Magnesium AST ALT Alkaline Phosphatase Lactate Dehydrogenase NT-Pro-B Natriuret Pep Total Protein Albumin Arterial Blood Glucose Arterial Blood Ionized Calcium Urine WBC (Auto) Vancomycin Trough Phenytoin Crossmatch 10/18/20 10/18/20 10/19/20 05:45 11:23 01:14 WBC RBC Hgb Hct MCV MCH MCHC RDW Plt Count Lymph % (Auto) [place] % (Auto) Lymph # (Auto) [place] # (Auto) Baso # (Auto) Seg Neutrophils % Seg Neuts % (Manual) Lymphocytes % (Manual) Monocytes % (Manual) Nucleated RBC % Seg Neutrophils # Seg Neutrophils # Man Lymphocytes # (Manual) Monocytes # (Manual) PT INR APTT Fibrinogen D-Dimer ABG pH POC ABG pCO2 POC ABG pO2 ABG pO2 ABG HCO3 ABG Base Excess ABG Hemoglobin ABG Oxyhemoglobin ABG Sodium ABG Potassium ABG Chloride ABG Glucose VBG pH Oxyhemoglobin Carboxyhemoglobin Sodium Potassium Chloride Carbon Dioxide BUN Creatinine Glucose POC Glucose 106 H 115 H 108 H Random Insulin C-Peptide Lactic Acid Calcium Ionized Calcium Phosphorus Magnesium AST ALT Alkaline Phosphatase Lactate Dehydrogenase NT-Pro-B Natriuret Pep Total Protein Albumin Arterial Blood Glucose Arterial Blood Ionized Calcium Urine WBC (Auto) Vancomycin Trough Phenytoin Crossmatch 10/19/20 10/20/20 10/20/20 09:57 05:40 07:59 WBC RBC Hgb Hct MCV MCH MCHC RDW Plt Count Lymph % (Auto) [place] % (Auto) Lymph # (Auto) [place] # (Auto) Baso # (Auto) Seg Neutrophils % Seg Neuts % (Manual) Lymphocytes % (Manual) Monocytes % (Manual) Nucleated RBC % Seg Neutrophils # Seg Neutrophils # Man Lymphocytes # (Manual) Monocytes # (Manual) PT INR APTT Fibrinogen D-Dimer ABG pH POC ABG pCO2 POC ABG pO2 ABG pO2 ABG HCO3 ABG Base Excess ABG Hemoglobin ABG Oxyhemoglobin ABG Sodium ABG Potassium ABG Chloride ABG Glucose VBG pH Oxyhemoglobin Carboxyhemoglobin Sodium Potassium Chloride Carbon Dioxide BUN Creatinine Glucose 106 H POC Glucose 122 H 109 H Random Insulin C-Peptide Lactic Acid Calcium Ionized Calcium Phosphorus Magnesium AST ALT Alkaline Phosphatase Lactate Dehydrogenase NT-Pro-B Natriuret Pep Total Protein Albumin Arterial Blood Glucose Arterial Blood Ionized Calcium Urine WBC (Auto) Vancomycin Trough Phenytoin Crossmatch 10/20/20 10/20/20 10/21/20 16:52 16:52 13:54 WBC 18.8 H 17.0 H RBC Hgb Hct MCV MCH MCHC RDW 17.7 H 17.8 H Plt Count 547 H 544 H Lymph % (Auto) 11.2 L [place] % (Auto) 8.1 H Lymph # (Auto) [place] # (Auto) 1.5 H Baso # (Auto) 0.2 H Seg Neutrophils % 78.8 H Seg Neuts % (Manual) Lymphocytes % (Manual) Monocytes % (Manual) Nucleated RBC % Seg Neutrophils # 14.8 H Seg Neutrophils # Man Lymphocytes # (Manual) Monocytes # (Manual) PT INR APTT Fibrinogen D-Dimer ABG pH POC ABG pCO2 POC ABG pO2 ABG pO2 ABG HCO3 ABG Base Excess ABG Hemoglobin ABG Oxyhemoglobin ABG Sodium ABG Potassium ABG Chloride ABG Glucose VBG pH Oxyhemoglobin Carboxyhemoglobin Sodium Potassium Chloride Carbon Dioxide BUN Creatinine Glucose POC Glucose Random Insulin C-Peptide Lactic Acid Calcium Ionized Calcium Phosphorus Magnesium AST ALT Alkaline Phosphatase Lactate Dehydrogenase NT-Pro-B Natriuret Pep Total Protein Albumin Arterial Blood Glucose Arterial Blood Ionized Calcium Urine WBC (Auto) Vancomycin Trough 34.5 H Phenytoin Crossmatch 10/21/20 10/22/20 10/23/20 13:54 07:26 05:34 WBC 18.7 H 13.0 H RBC 3.64 L 3.50 L Hgb Hct 30.0 L MCV MCH MCHC 35 H RDW 17.7 H 17.6 H Plt Count 502 H 503 H Lymph % (Auto) [place] % (Auto) Lymph # (Auto) [place] # (Auto) Baso # (Auto) Seg Neutrophils % Seg Neuts % (Manual) Lymphocytes % (Manual) Monocytes % (Manual) Nucleated RBC % Seg Neutrophils # Seg Neutrophils # Man Lymphocytes # (Manual) Monocytes # (Manual) PT INR APTT Fibrinogen D-Dimer ABG pH POC ABG pCO2 POC ABG pO2 ABG pO2 ABG HCO3 ABG Base Excess ABG Hemoglobin ABG Oxyhemoglobin ABG Sodium ABG Potassium ABG Chloride ABG Glucose VBG pH Oxyhemoglobin Carboxyhemoglobin Sodium 136 L Potassium Chloride Carbon Dioxide BUN Creatinine Glucose 120 H POC Glucose Random Insulin C-Peptide Lactic Acid Calcium Ionized Calcium Phosphorus Magnesium AST ALT Alkaline Phosphatase Lactate Dehydrogenase NT-Pro-B Natriuret Pep Total Protein Albumin Arterial Blood Glucose Arterial Blood Ionized Calcium Urine WBC (Auto) Vancomycin Trough Phenytoin Crossmatch 10/23/20 10/26/20 10/27/20 05:34 10:30 07:53 WBC 13.6 H RBC 3.38 L Hgb 10.0 L Hct 28.8 L MCV MCH MCHC 35 H RDW 17.6 H Plt Count Lymph % (Auto) [place] % (Auto) Lymph # (Auto) [place] # (Auto) Baso # (Auto) Seg Neutrophils % Seg Neuts % (Manual) Lymphocytes % (Manual) Monocytes % (Manual) Nucleated RBC % Seg Neutrophils # Seg Neutrophils # Man Lymphocytes # (Manual) Monocytes # (Manual) PT INR APTT Fibrinogen D-Dimer ABG pH 7.459 H POC ABG pCO2 POC ABG pO2 ABG pO2 112.2 H ABG HCO3 ABG Base Excess ABG Hemoglobin ABG Oxyhemoglobin ABG Sodium ABG Potassium ABG Chloride ABG Glucose VBG pH Oxyhemoglobin Carboxyhemoglobin Sodium 135 L Potassium Chloride Carbon Dioxide BUN Creatinine Glucose 105 H POC Glucose Random Insulin C-Peptide Lactic Acid Calcium Ionized Calcium Phosphorus Magnesium AST ALT Alkaline Phosphatase Lactate Dehydrogenase NT-Pro-B Natriuret Pep Total Protein Albumin Arterial Blood Glucose Arterial Blood Ionized Calcium Urine WBC (Auto) Vancomycin Trough Phenytoin Crossmatch 10/27/20 10/27/20 10/28/20 07:53 11:31 05:19 WBC RBC Hgb Hct MCV MCH MCHC RDW Plt Count Lymph % (Auto) [place] % (Auto) Lymph # (Auto) [place] # (Auto) Baso # (Auto) Seg Neutrophils % Seg Neuts % (Manual) Lymphocytes % (Manual) Monocytes % (Manual) Nucleated RBC % Seg Neutrophils # Seg Neutrophils # Man Lymphocytes # (Manual) Monocytes # (Manual) PT INR APTT Fibrinogen D-Dimer ABG pH POC ABG pCO2 POC ABG pO2 ABG pO2 ABG HCO3 ABG Base Excess ABG Hemoglobin ABG Oxyhemoglobin ABG Sodium ABG Potassium ABG Chloride ABG Glucose VBG pH Oxyhemoglobin Carboxyhemoglobin Sodium Potassium Chloride Carbon Dioxide BUN 20 H Creatinine Glucose 112 H POC Glucose 113 H 112 H Random Insulin C-Peptide Lactic Acid Calcium Ionized Calcium Phosphorus Magnesium AST 83 H ALT Alkaline Phosphatase Lactate Dehydrogenase NT-Pro-B Natriuret Pep Total Protein Albumin 3.8 L Arterial Blood Glucose Arterial Blood Ionized Calcium Urine WBC (Auto) Vancomycin Trough Phenytoin Crossmatch 10/29/20 10/29/20 10/29/20 07:56 07:56 11:37 WBC 13.6 H RBC Hgb Hct MCV MCH MCHC RDW 17.0 H Plt Count Lymph % (Auto) [place] % (Auto) Lymph # (Auto) [place] # (Auto) Baso # (Auto) Seg Neutrophils % Seg Neuts % (Manual) 80.0 H Lymphocytes % (Manual) Monocytes % (Manual) Nucleated RBC % Seg Neutrophils # Seg Neutrophils # Man 10.9 H Lymphocytes # (Manual) Monocytes # (Manual) PT INR APTT Fibrinogen D-Dimer ABG pH POC ABG pCO2 POC ABG pO2 ABG pO2 ABG HCO3 ABG Base Excess ABG Hemoglobin ABG Oxyhemoglobin ABG Sodium ABG Potassium ABG Chloride ABG Glucose VBG pH Oxyhemoglobin Carboxyhemoglobin Sodium Potassium Chloride Carbon Dioxide BUN Creatinine Glucose POC Glucose 108 H Random Insulin C-Peptide Lactic Acid Calcium Ionized Calcium Phosphorus 4.70 H Magnesium AST ALT Alkaline Phosphatase Lactate Dehydrogenase NT-Pro-B Natriuret Pep Total Protein Albumin Arterial Blood Glucose Arterial Blood Ionized Calcium Urine WBC (Auto) Vancomycin Trough Phenytoin Crossmatch 10/29/20 10/30/20 10/30/20 13:32 12:11 17:19 WBC RBC Hgb Hct MCV MCH MCHC RDW Plt Count Lymph % (Auto) [place] % (Auto) Lymph # (Auto) [place] # (Auto) Baso # (Auto) Seg Neutrophils % Seg Neuts % (Manual) Lymphocytes % (Manual) Monocytes % (Manual) Nucleated RBC % Seg Neutrophils # Seg Neutrophils # Man Lymphocytes # (Manual) Monocytes # (Manual) PT INR APTT Fibrinogen D-Dimer ABG pH POC ABG pCO2 POC ABG pO2 ABG pO2 ABG HCO3 ABG Base Excess ABG Hemoglobin ABG Oxyhemoglobin ABG Sodium ABG Potassium ABG Chloride ABG Glucose VBG pH Oxyhemoglobin Carboxyhemoglobin Sodium Potassium Chloride Carbon Dioxide BUN Creatinine Glucose POC Glucose 108 H 106 H 107 H Random Insulin C-Peptide Lactic Acid Calcium Ionized Calcium Phosphorus Magnesium AST ALT Alkaline Phosphatase Lactate Dehydrogenase NT-Pro-B Natriuret Pep Total Protein Albumin Arterial Blood Glucose Arterial Blood Ionized Calcium Urine WBC (Auto) Vancomycin Trough Phenytoin Crossmatch 10/31/20 10/31/20 11/01/20 03:20 05:43 04:55 WBC RBC Hgb Hct MCV MCH MCHC RDW Plt Count Lymph % (Auto) [place] % (Auto) Lymph # (Auto) [place] # (Auto) Baso # (Auto) Seg Neutrophils % Seg Neuts % (Manual) Lymphocytes % (Manual) Monocytes % (Manual) Nucleated RBC % Seg Neutrophils # Seg Neutrophils # Man Lymphocytes # (Manual) Monocytes # (Manual) PT INR APTT Fibrinogen D-Dimer ABG pH POC ABG pCO2 POC ABG pO2 ABG pO2 ABG HCO3 ABG Base Excess ABG Hemoglobin ABG Oxyhemoglobin ABG Sodium ABG Potassium ABG Chloride ABG Glucose VBG pH Oxyhemoglobin Carboxyhemoglobin Sodium Potassium Chloride Carbon Dioxide BUN Creatinine Glucose POC Glucose 108 H 115 H 108 H Random Insulin C-Peptide Lactic Acid Calcium Ionized Calcium Phosphorus Magnesium AST ALT Alkaline Phosphatase Lactate Dehydrogenase NT-Pro-B Natriuret Pep Total Protein Albumin Arterial Blood Glucose Arterial Blood Ionized Calcium Urine WBC (Auto) Vancomycin Trough Phenytoin Crossmatch 11/01/20 11/01/20 11/01/20 05:01 16:47 21:36 WBC RBC Hgb Hct MCV MCH MCHC RDW Plt Count Lymph % (Auto) [place] % (Auto) Lymph # (Auto) [place] # (Auto) Baso # (Auto) Seg Neutrophils % Seg Neuts % (Manual) Lymphocytes % (Manual) Monocytes % (Manual) Nucleated RBC % Seg Neutrophils # Seg Neutrophils # Man Lymphocytes # (Manual) Monocytes # (Manual) PT INR APTT Fibrinogen D-Dimer ABG pH POC ABG pCO2 POC ABG pO2 ABG pO2 ABG HCO3 ABG Base Excess ABG Hemoglobin ABG Oxyhemoglobin ABG Sodium ABG Potassium ABG Chloride ABG Glucose VBG pH Oxyhemoglobin Carboxyhemoglobin Sodium 135 L Potassium Chloride Carbon Dioxide BUN Creatinine Glucose POC Glucose 116 H 112 H Random Insulin C-Peptide Lactic Acid Calcium Ionized Calcium Phosphorus Magnesium AST 93 H ALT Alkaline Phosphatase 132 H Lactate Dehydrogenase NT-Pro-B Natriuret Pep Total Protein Albumin 3.6 L Arterial Blood Glucose Arterial Blood Ionized Calcium Urine WBC (Auto) Vancomycin Trough Phenytoin Crossmatch 11/02/20 11/02/20 11/02/20 17:45 19:19 19:19 WBC RBC Hgb Hct MCV MCH MCHC RDW Plt Count Lymph % (Auto) [place] % (Auto) Lymph # (Auto) [place] # (Auto) Baso # (Auto) Seg Neutrophils % Seg Neuts % (Manual) Lymphocytes % (Manual) Monocytes % (Manual) Nucleated RBC % Seg Neutrophils # Seg Neutrophils # Man Lymphocytes # (Manual) Monocytes # (Manual) PT INR APTT Fibrinogen D-Dimer ABG pH POC ABG pCO2 POC ABG pO2 ABG pO2 ABG HCO3 ABG Base Excess ABG Hemoglobin ABG Oxyhemoglobin ABG Sodium ABG Potassium ABG Chloride ABG Glucose VBG pH Oxyhemoglobin Carboxyhemoglobin Sodium Potassium Chloride Carbon Dioxide BUN Creatinine Glucose POC Glucose 107 H Random Insulin 43.2 H C-Peptide 6.23 H Lactic Acid Calcium Ionized Calcium Phosphorus Magnesium AST ALT Alkaline Phosphatase Lactate Dehydrogenase NT-Pro-B Natriuret Pep Total Protein Albumin Arterial Blood Glucose Arterial Blood Ionized Calcium Urine WBC (Auto) Vancomycin Trough Phenytoin Crossmatch 11/03/20 11/04/20 11/04/20 21:49 05:00 05:00 WBC 13.8 H RBC Hgb Hct MCV MCH MCHC RDW 16.6 H Plt Count Lymph % (Auto) 11.8 L [place] % (Auto) 11.0 H Lymph # (Auto) [place] # (Auto) 1.5 H Baso # (Auto) Seg Neutrophils % 75.1 H Seg Neuts % (Manual) Lymphocytes % (Manual) Monocytes % (Manual) Nucleated RBC % Seg Neutrophils # 10.4 H Seg Neutrophils # Man Lymphocytes # (Manual) Monocytes # (Manual) PT INR APTT Fibrinogen D-Dimer ABG pH POC ABG pCO2 POC ABG pO2 ABG pO2 ABG HCO3 ABG Base Excess ABG Hemoglobin ABG Oxyhemoglobin ABG Sodium ABG Potassium ABG Chloride ABG Glucose VBG pH Oxyhemoglobin Carboxyhemoglobin Sodium Potassium Chloride Carbon Dioxide BUN Creatinine Glucose 112 H POC Glucose 109 H Random Insulin C-Peptide Lactic Acid Calcium Ionized Calcium Phosphorus Magnesium AST 90 H ALT Alkaline Phosphatase Lactate Dehydrogenase NT-Pro-B Natriuret Pep Total Protein Albumin 3.8 L Arterial Blood Glucose Arterial Blood Ionized Calcium Urine WBC (Auto) Vancomycin Trough Phenytoin Crossmatch 11/04/20 11/04/20 11/05/20 06:03 23:47 07:47 WBC RBC Hgb Hct MCV MCH MCHC RDW Plt Count Lymph % (Auto) [place] % (Auto) Lymph # (Auto) [place] # (Auto) Baso # (Auto) Seg Neutrophils % Seg Neuts % (Manual) Lymphocytes % (Manual) Monocytes % (Manual) Nucleated RBC % Seg Neutrophils # Seg Neutrophils # Man Lymphocytes # (Manual) Monocytes # (Manual) PT INR APTT Fibrinogen D-Dimer ABG pH POC ABG pCO2 POC ABG pO2 ABG pO2 ABG HCO3 ABG Base Excess ABG Hemoglobin ABG Oxyhemoglobin ABG Sodium ABG Potassium ABG Chloride ABG Glucose VBG pH Oxyhemoglobin Carboxyhemoglobin Sodium Potassium Chloride Carbon Dioxide BUN Creatinine Glucose POC Glucose 107 H 121 H 111 H Random Insulin C-Peptide Lactic Acid Calcium Ionized Calcium Phosphorus Magnesium AST ALT Alkaline Phosphatase Lactate Dehydrogenase NT-Pro-B Natriuret Pep Total Protein Albumin Arterial Blood Glucose Arterial Blood Ionized Calcium Urine WBC (Auto) Vancomycin Trough Phenytoin Crossmatch 11/05/20 11/06/20 11/06/20 23:24 17:04 23:36 WBC RBC Hgb Hct MCV MCH MCHC RDW Plt Count Lymph % (Auto) [place] % (Auto) Lymph # (Auto) [place] # (Auto) Baso # (Auto) Seg Neutrophils % Seg Neuts % (Manual) Lymphocytes % (Manual) Monocytes % (Manual) Nucleated RBC % Seg Neutrophils # Seg Neutrophils # Man Lymphocytes # (Manual) Monocytes # (Manual) PT INR APTT Fibrinogen D-Dimer ABG pH POC ABG pCO2 POC ABG pO2 ABG pO2 ABG HCO3 ABG Base Excess ABG Hemoglobin ABG Oxyhemoglobin ABG Sodium ABG Potassium ABG Chloride ABG Glucose VBG pH Oxyhemoglobin Carboxyhemoglobin Sodium Potassium Chloride Carbon Dioxide BUN Creatinine Glucose POC Glucose 111 H 112 H 108 H Random Insulin C-Peptide Lactic Acid Calcium Ionized Calcium Phosphorus Magnesium AST ALT Alkaline Phosphatase Lactate Dehydrogenase NT-Pro-B Natriuret Pep Total Protein Albumin Arterial Blood Glucose Arterial Blood Ionized Calcium Urine WBC (Auto) Vancomycin Trough Phenytoin Crossmatch 11/07/20 11/07/20 11/07/20 03:33 04:44 04:44 WBC RBC Hgb Hct MCV MCH MCHC RDW 16.6 H Plt Count Lymph % (Auto) [place] % (Auto) 13.1 H Lymph # (Auto) [place] # (Auto) 1.3 H Baso # (Auto) Seg Neutrophils % Seg Neuts % (Manual) Lymphocytes % (Manual) Monocytes % (Manual) Nucleated RBC % Seg Neutrophils # Seg Neutrophils # Man Lymphocytes # (Manual) Monocytes # (Manual) PT INR APTT Fibrinogen D-Dimer ABG pH POC ABG pCO2 POC ABG pO2 ABG pO2 ABG HCO3 ABG Base Excess ABG Hemoglobin ABG Oxyhemoglobin ABG Sodium ABG Potassium ABG Chloride ABG Glucose VBG pH Oxyhemoglobin Carboxyhemoglobin Sodium Potassium Chloride Carbon Dioxide BUN Creatinine Glucose 103 H POC Glucose 109 H Random Insulin C-Peptide Lactic Acid Calcium Ionized Calcium Phosphorus 5.30 H Magnesium AST ALT Alkaline Phosphatase Lactate Dehydrogenase NT-Pro-B Natriuret Pep Total Protein Albumin Arterial Blood Glucose Arterial Blood Ionized Calcium Urine WBC (Auto) Vancomycin Trough Phenytoin Crossmatch 01/23/21 15:58 WBC RBC Hgb Hct MCV MCH MCHC RDW Plt Count Lymph % (Auto) [place] % (Auto) Lymph # (Auto) [place] # (Auto) Baso # (Auto) Seg Neutrophils % Seg Neuts % (Manual) Lymphocytes % (Manual) Monocytes % (Manual) Nucleated RBC % Seg Neutrophils # Seg Neutrophils # Man Lymphocytes # (Manual) Monocytes # (Manual) PT INR APTT Fibrinogen D-Dimer ABG pH POC ABG pCO2 POC ABG pO2 ABG pO2 ABG HCO3 ABG Base Excess ABG Hemoglobin ABG Oxyhemoglobin ABG Sodium ABG Potassium ABG Chloride ABG Glucose VBG pH Oxyhemoglobin Carboxyhemoglobin Sodium Potassium Chloride Carbon Dioxide BUN Creatinine Glucose POC Glucose 108 H Random Insulin C-Peptide Lactic Acid Calcium Ionized Calcium Phosphorus Magnesium AST ALT Alkaline Phosphatase Lactate Dehydrogenase NT-Pro-B Natriuret Pep Total Protein Albumin Arterial Blood Glucose Arterial Blood Ionized Calcium Urine WBC (Auto) Vancomycin Trough Phenytoin Crossmatch Chest x-ray: report reviewed, image reviewed
[2020-11-08] MEDS: ACYCLOVIR 1,000 MG in SODIUM CHLORIDE 0.9% 100 ML IV SCH (05:56)
[2020-11-08] MEDS: hydrALAZINE 25 MG TAB PO SCH ×3 (05:56→21:04)
[2020-11-08] MEDS: DEXTROSE 10% IN WATER 1,000 ML IV SCH (09:49)
[2020-11-08] MEDS: ENOXAPARIN 40 MG/0.4 ML INJ SUB-Q SCH (09:49)
[2020-11-08] MEDS: FAMOTIDINE 20 MG TAB PO SCH ×2 (09:51→21:04)
[2020-11-08] MEDS: SODIUM BICARBONATE 650 MG TAB PO SCH ×3 (09:51→21:03)
[2020-11-08] MEDS: FUROSEMIDE 40 MG TAB PO SCH (09:51)
[2020-11-08] MEDS: TOPIRAMATE TAB 25 MG TAB PO SCH ×2 (10:07→21:03)
--- NOTE | 2020-11-08 10:20 | Progress Note ---
Assessment and Plan A: POD#37 s/p repeat section at 36 wks secondary to Eclampsia and Cardiac Arrest with Resuscitation POD#37 s/p supracervical abdominal hysterectomy secondary to Uterine [place], Hemorrhage and Disseminated Intravascular Coagulation (DIC) s/p multiple transfusions of blood products POD #18 s/p Percutaneous Tracheostomy, Fiberoptic Bronchoscopy, PEG tube placement Right Upper Extremity superficial and deep vein thrombosis on Lovenox Hypoglycemia Herpetic outbreak Afebrile overnight -Status post cardiac arrest 10/07/2020 requiring reintubation. -Shock, DIC: Secondary to hemorrhage-stable -Sepsis: followed by ID, abx/imaging recommendations noted -Acute kidney injury: resolved, labs stable -Acute respiratory failure: off vent presently -Preeclampsia: s/p Magnesium P: Continue supportive care per Hospitalist and Tennis Professional recommendations All vm[employer] consultant reports reviewed and appreciated Subjective - Subjective Date of service: 11/08/20 Principal diagnosis: Eclampsia/HELLP Syndrome, ADOLPH, DIC; s/p , s/p supracervical hyst Interval history: Late entry. All vmware consultant recommendations reviewed and greatly appreciated. 30y/o POD #37 s/p emergent section and supracervical hysterectomy for eclampsia and DIC. POD#18 s/p Percutaneous tracheostomy, Fiberoptic bronchoscopy, PEG tube placement. Currently on Lovenox for SVT and DVT in right upper extremity. Currently being treated for severe herpetic outbreak. Afebrile overnight. Pt remains unresponsive to calling her name, with spontaneous blinking of eyes and movement of both lower extremities this morning. Patient reports: no voiding normally, no ambulating normally Objective - Vital Signs Latest vital signs: Vital Signs Temp Pulse Resp BP Pulse Ox Pulse Ox 11/08/20 09:50 111 H 11/08/20 09:02 100 11/08/20 09:00 100 H 22 116/48 100 11/08/20 08:30 99 H 26 H 109/43 100 11/08/20 08:00 98.8 F 108 H 23 109/58 100 100 11/08/20 07:30 115 H 29 H 114/43 100 11/08/20 07:00 101 H 29 H 102/47 100 11/08/20 06:30 100 H 22 110/49 100 11/08/20 06:00 97 H 22 127/59 100 11/08/20 05:56 96 H 129/53 11/08/20 05:30 104 H 33 H 129/53 100 11/08/20 05:01 97 H 15 116/58 100 11/08/20 04:30 94 H 19 112/60 100 11/08/20 04:00 97.5 F L 107 H 40 H 130/81 100 11/08/20 03:30 109 H 24 133/72 100 11/08/20 03:00 99 H 30 H 112/61 100 11/08/20 02:30 104 H 26 H 121/54 100 11/08/20 02:00 100 H 25 H 111/52 100 11/08/20 01:31 109 H 35 H 108/41 100 11/08/20 01:00 100 H 26 H 116/51 100 11/08/20 00:30 111 H 21 109/46 100 11/08/20 00:00 99.2 F 107 H 24 105/53 100 11/07/20 23:39 100 11/07/20 23:31 109 H 35 H 101/58 100 11/07/20 23:00 107 H 37 H 103/48 100 11/07/20 22:30 107 H 20 105/48 100 11/07/20 22:00 101 H 25 H 100/46 100 11/07/20 21:30 107 H 25 H 114/54 100 11/07/20 21:07 116 H 121/78 11/07/20 21:06 116 H 121/78 11/07/20 21:01 115 H 21 121/78 100 11/07/20 20:53 118 H 23 124/74 100 11/07/20 20:30 118 H 27 H 124/74 100 11/07/20 20:11 100 11/07/20 20:00 97.8 F 115 H 35 H 126/64 100 11/07/20 19:30 116 H 21 116/56 100 11/07/20 19:27 113 H 11/07/20 19:00 112 H 17 125/59 100 11/07/20 18:00 93 H 20 110/62 100 11/07/20 17:00 109 H 25 H 105/54 100 11/07/20 16:01 100 H 28 H 118/42 100 11/07/20 16:00 99.2 F 11/07/20 15:00 106 H 26 H 114/54 99 11/07/20 14:00 92 H 21 108/54 100 11/07/20 13:00 86 28 H 106/53 100 11/07/20 12:00 98.9 F 93 H 17 102/54 100 11/07/20 11:00 109 H 28 H 115/58 100 11/07/20 10:38 105 H 114/75 Intake and Output 11/07/20 11/08/20 11/08/20 22:59 06:59 14:59 Intake Total 920 1663.75 937.5 Output Total 1400 1150 Balance -480 513.75 937.5 Intake: IV 240 983.75 757.5 D10w 1,000 ml @ 75 mls/hr 983.75 757.5 IV DIRECT ERINN Rx#: [id number] Zovirax 1,000 mg In NaCl 240 0.9% 100 ml @ 100 mls/hr IV Q8HR ERINN Rx#:[id number] Intake, Free Water 200 200 Tube Feeding 480 480 180 Output: Urine 1400 1150 Indwelling Catheter 1400 1150 Other: Total, Intake Amount 60 60 60 Total, Output Amount 1400 1150 Voiding Method Indwelling Catheter Indwelling Catheter External Female Catheter Weight 108.2 kg - Exam Breasts: Present: deferred Abdomen: Present: soft (obese) Extremities: Present: edema Incision: Present: intact - Labs Labs: Abnormal lab results 11/07/20 11/07/20 11/08/20 Range/Units 15:58 23:46 07:30 POC Glucose 108 H 106 H 109 H (70-105) mg/dL
--- NOTE | 2020-11-08 18:18 | Progress Note ---
Assessment and Plan Imp: 1. Eclampsia w/ seizures s/p 2. S/p CP arrest 3. Encephalopathy, probably anoxic 4. Morbid obesity 5. DIC 6. ADOLPH 7. Acute respiratory failure, hypoxia 8. C.diff colitis Rec: 1. Cont. Tpiece; not a candidate for tracheal decannulation due to mentation 2. Avoid sedating meds 3. TFs, DVT PPx 4. Supportive care 5. Placement; complex decision-making No family present Subjective Date of service: 11/08/20 Principal diagnosis: Eclampsia/HELLP Syndrome, ADOLPH, DIC; s/p , s/p supracervical hyst Interval history: No events. Eyes open. On Tpiece. Comatose. Active Medications Acetaminophen (Acetaminophen 325 Mg/10.15 Ml Oral Liqd Unit Dose) 650 mg FEEDTUBE Q6H PRN PRN Reason: Non Cardiac Pain or Temp>100.5 Last Admin: 11/05/20 21:30 Dose: 650 mg Documented by: Albuterol (Albuterol 2.5 Mg/3 Ml Nebu) 2.5 mg IH Q4HRT PRN PRN Reason: Shortness Of Breath Last Admin: 11/06/20 13:04 Dose: 2.5 mg Documented by: Lipase/Protease/Amylase (Lipase 10,500/Protease 25,000/Amylase 43,750 (Units) Dr Barakat) 1 each FEEDTUBE PRN PRN PRN Reason: For Clogged Feeding Tube Enoxaparin Sodium (Enoxaparin 40 Mg/0.4 Ml Inj) 40 mg SUB-Q DAILY ERINN; Protocol Last Admin: 11/08/20 09:49 Dose: 40 mg Documented by: Famotidine (Famotidine 20 Mg Tab) 20 mg PO BID [facility] Last Admin: 11/08/20 09:51 Dose: 20 mg Documented by: Furosemide (Furosemide 40 Mg Tab) 40 mg PO QDAY [facility] Last Admin: 11/08/20 09:51 Dose: 40 mg Documented by: Hydralazine HCl (Hydralazine 20 Mg/1 Ml Inj) 20 mg IV Q6H PRN PRN Reason: SBP >170 Last Admin: 10/17/20 07:20 Dose: 20 mg Documented by: Hydralazine HCl (Hydralazine 25 Mg Tab) 50 mg PO Q8HR [facility] Last Admin: 11/08/20 14:06 Dose: Not Given Documented by: Dextrose (D10w) 1,000 mls @ 75 mls/hr IV DIRECT [facility] Last Admin: 11/08/20 09:49 Dose: 75 mls/hr Documented by: Labetalol HCl (Labetalol 100 Mg Tab) 300 mg PO TID [facility] Last Admin: 11/08/20 13:49 Dose: Not Given Documented by: Simple Syrup (Simple Syrup 15 Ml) 15 ml FEEDTUBE PRN PRN PRN Reason: Hypoglycemia Simple Syrup (Simple Syrup 15 Ml) 30 ml FEEDTUBE PRN PRN PRN Reason: Hypoglycemia Sodium Bicarbonate (Sodium Bicarbonate 325 Mg Tab) 325 mg FEEDTUBE PRN PRN PRN Reason: For Clogged Feeding Tube Last Admin: 11/06/20 10:35 Dose: 325 mg Documented by: Sodium Bicarbonate (Sodium Bicarbonate 650 Mg Tab) 1,300 mg PO TID [facility] Last Admin: 11/08/20 14:06 Dose: 1,300 mg Documented by: Topiramate (Topiramate Tab 25 Mg Tab) 50 mg PO Q12HR [facility] Last Admin: 11/08/20 10:07 Dose: 50 mg Documented by: Objective Vital Signs - 12hr 11/08/20 11/08/20 11/08/20 06:30 07:00 07:30 Temperature Pulse Rate 100 H 101 H 115 H Respiratory 22 29 H 29 H Rate Blood Pressure 110/49 102/47 114/43 O2 Sat by Pulse 100 100 100 Oximetry O2 Sat by Pulse Oximetry [ Assessment] 11/08/20 11/08/20 11/08/20 08:00 08:30 09:00 Temperature 98.8 F Pulse Rate 108 H 99 H 100 H Respiratory 23 26 H 22 Rate Blood Pressure 109/58 109/43 116/48 O2 Sat by Pulse 100 100 100 Oximetry O2 Sat by Pulse 100 Oximetry [ Assessment] 11/08/20 11/08/20 11/08/20 09:02 09:30 09:50 Temperature Pulse Rate 102 H 111 H Respiratory 24 Rate Blood Pressure 126/52 O2 Sat by Pulse 100 100 Oximetry O2 Sat by Pulse Oximetry [ Assessment] 11/08/20 11/08/20 11/08/20 10:00 10:31 11:00 Temperature Pulse Rate 108 H 114 H 94 H Respiratory 24 26 H 25 H Rate Blood Pressure 122/56 94/72 107/62 O2 Sat by Pulse 100 100 100 Oximetry O2 Sat by Pulse Oximetry [ Assessment] 11/08/20 11/08/20 11/08/20 11:30 12:00 12:30 Temperature 99.1 F Pulse Rate 98 H 88 86 Respiratory 20 20 18 Rate Blood Pressure 101/57 98/50 105/53 O2 Sat by Pulse 100 100 100 Oximetry O2 Sat by Pulse Oximetry [ Assessment] 11/08/20 11/08/20 11/08/20 13:00 13:30 14:00 Temperature Pulse Rate 103 H 103 H 85 Respiratory 29 H 31 H 21 Rate Blood Pressure 119/53 126/70 106/56 O2 Sat by Pulse 99 100 100 Oximetry O2 Sat by Pulse Oximetry [ Assessment] 11/08/20 11/08/20 11/08/20 14:06 14:30 15:00 Temperature Pulse Rate 102 H 102 H Respiratory 25 H 38 H Rate Blood Pressure 106/56 104/58 125/50 O2 Sat by Pulse 100 100 Oximetry O2 Sat by Pulse Oximetry [ Assessment] 11/08/20 11/08/20 15:30 16:00 Temperature 98.6 F Pulse Rate 90 Respiratory 16 Rate Blood Pressure 111/61 O2 Sat by Pulse 100 Oximetry O2 Sat by Pulse Oximetry [ Assessment] Constitutional: comatose, other (s/p trach) Eyes: non-icteric ENT: oropharynx moist Neck: other (large in cirumference) Effort: normal Ascultation: Bilateral: rhonchi, other (coarse BS bilaterally) Percussion: Bilateral: not dull Cardiovascular: regular rate and rhythm, other (no mrg) Gastrointestinal: normoactive bowel sounds, soft Extremities: no cyanosis, pink and warm Neurologic: other (unresponsive, not following commands, not tracking) Psychiatric: other (unable to assess) CBC and BMP: 11/07/20 04:44 11/07/20 04:44 ABG, PT/INR, D-dimer: ABG ABG pH 7.459 pH Units (7.350-7.450) H 10/26/20 10:30 POC ABG pCO2 20.7 mmHg (32.0-48.0) L 10/13/20 07:18 ABG pCO2 32.4 mm Hg 10/26/20 10:30 POC ABG pO2 137.9 mmHg (83-108) H 10/13/20 07:18 ABG pO2 112.2 mm Hg (80.0-90.0) H 10/26/20 10:30 POC ABG HCO3 14.8 10/13/20 07:18 ABG O2 Saturation 98.2 % (95.0-99.0) 10/26/20 10:30 PT/INR, D-dimer PT 13.6 Sec. (12.2-14.9) 10/21/20 13:54 INR 1.06 (0.87-1.13) 10/21/20 13:54 D-Dimer > 31683 ng/mlDDU (0-234) H 10/04/20 10:00 Abnormal lab findings: Abnormal Labs 10/02/20 10/02/20 10/02/20 12:03 12:18 12:18 WBC 14.9 H RBC Hgb 9.1 L Hct MCV MCH 22 L MCHC 28 L RDW 17.6 H Plt Count 102 L Lymph % (Auto) Robertson % (Auto) Lymph # (Auto) Robertson # (Auto) Baso # (Auto) Seg Neutrophils % Seg Neuts % (Manual) 36.0 L Lymphocytes % (Manual) 49.0 H Monocytes % (Manual) Nucleated RBC % 6.0 H Seg Neutrophils # Seg Neutrophils # Man Lymphocytes # (Manual) 7.3 H Monocytes # (Manual) PT INR APTT Fibrinogen D-Dimer ABG pH POC ABG pCO2 POC ABG pO2 ABG pO2 ABG HCO3 ABG Base Excess ABG Hemoglobin ABG Oxyhemoglobin ABG Sodium ABG Potassium ABG Chloride ABG Glucose VBG pH Oxyhemoglobin Carboxyhemoglobin Sodium 134 L Potassium Chloride Carbon Dioxide 12 L BUN 6 L Creatinine Glucose 390 H POC Glucose 451 H Random Insulin C-Peptide Lactic Acid Calcium Ionized Calcium Phosphorus Magnesium AST 135 H ALT 85 H Alkaline Phosphatase 172 H Lactate Dehydrogenase 641 H NT-Pro-B Natriuret Pep Total Protein 5.4 L Albumin 2.3 L Arterial Blood Glucose Arterial Blood Ionized Calcium Urine WBC (Auto) Vancomycin Trough Phenytoin Crossmatch 10/02/20 10/02/20 10/02/20 12:50 13:05 13:05 WBC 38.6 H RBC Hgb 8.9 L Hct 29.0 L MCV 73 L MCH 22 L MCHC RDW 17.2 H Plt Count Lymph % (Auto) Robertson % (Auto) Lymph # (Auto) Robertson # (Auto) Baso # (Auto) Seg Neutrophils % Seg Neuts % (Manual) Lymphocytes % (Manual) Monocytes % (Manual) Nucleated RBC % 2.0 H Seg Neutrophils # Seg Neutrophils # Man 20.1 H Lymphocytes # (Manual) 10.4 H Monocytes # (Manual) 2.3 H PT INR APTT Fibrinogen D-Dimer ABG pH POC ABG pCO2 POC ABG pO2 ABG pO2 ABG HCO3 ABG Base Excess ABG Hemoglobin ABG Oxyhemoglobin ABG Sodium ABG Potassium ABG Chloride ABG Glucose VBG pH Oxyhemoglobin Carboxyhemoglobin Sodium Potassium Chloride Carbon Dioxide BUN Creatinine Glucose POC Glucose Random Insulin C-Peptide Lactic Acid Calcium Ionized Calcium Phosphorus Magnesium AST 184 H ALT 113 H Alkaline Phosphatase Lactate Dehydrogenase 769 H NT-Pro-B Natriuret Pep Total Protein Albumin Arterial Blood Glucose Arterial Blood Ionized Calcium Urine WBC (Auto) Vancomycin Trough Phenytoin Crossmatch See Detail 10/02/20 10/02/20 10/02/20 16:25 16:35 16:35 WBC RBC Hgb Hct MCV MCH MCHC RDW Plt Count Lymph % (Auto) Robertson % (Auto) Lymph # (Auto) Robertson # (Auto) Baso # (Auto) Seg Neutrophils % Seg Neuts % (Manual) Lymphocytes % (Manual) Monocytes % (Manual) Nucleated RBC % Seg Neutrophils # Seg Neutrophils # Man Lymphocytes # (Manual) Monocytes # (Manual) PT INR APTT Fibrinogen D-Dimer ABG pH 7.031 L* POC ABG pCO2 POC ABG pO2 ABG pO2 116.8 H ABG HCO3 12.7 L ABG Base Excess -16.9 L ABG Hemoglobin 7.8 L ABG Oxyhemoglobin ABG Sodium ABG Potassium ABG Chloride ABG Glucose VBG pH Oxyhemoglobin 94.9 L Carboxyhemoglobin Sodium Potassium Chloride Carbon Dioxide BUN Creatinine Glucose 403 H POC Glucose Random Insulin C-Peptide Lactic Acid 11.40 H* Calcium 6.3 L D Ionized Calcium Phosphorus Magnesium AST 70 H ALT Alkaline Phosphatase Lactate Dehydrogenase NT-Pro-B Natriuret Pep Total Protein 1.9 L D Albumin 1.2 L Arterial Blood Glucose Arterial Blood Ionized Calcium Urine WBC (Auto) Vancomycin Trough Phenytoin Crossmatch 10/02/20 10/02/20 10/02/20 18:18 18:18 22:30 WBC 11.5 H RBC 2.06 L Hgb 5.5 L* D Hct 17.3 L* D MCV MCH 27 L MCHC RDW 19.5 H Plt Count 60 L Lymph % (Auto) Robertson % (Auto) Lymph # (Auto) Robertson # (Auto) Baso # (Auto) Seg Neutrophils % Seg Neuts % (Manual) Lymphocytes % (Manual) 8.0 L Monocytes % (Manual) 8.0 H Nucleated RBC % 8.0 H Seg Neutrophils # Seg Neutrophils # Man Lymphocytes # (Manual) 0.9 L Monocytes # (Manual) 0.9 H PT 37.1 H INR 3.71 H APTT 135.8 H* Fibrinogen D-Dimer ABG pH 7.067 L* POC ABG pCO2 POC ABG pO2 ABG pO2 183.0 H ABG HCO3 14.1 L ABG Base Excess -15.1 L ABG Hemoglobin 7.7 L ABG Oxyhemoglobin ABG Sodium ABG Potassium ABG Chloride ABG Glucose VBG pH Oxyhemoglobin Carboxyhemoglobin Sodium Potassium Chloride Carbon Dioxide BUN Creatinine Glucose POC Glucose Random Insulin C-Peptide Lactic Acid Calcium Ionized Calcium Phosphorus Magnesium AST ALT Alkaline Phosphatase Lactate Dehydrogenase NT-Pro-B Natriuret Pep Total Protein Albumin Arterial Blood Glucose Arterial Blood Ionized Calcium Urine WBC (Auto) Vancomycin Trough Phenytoin Crossmatch 10/02/20 10/02/20 10/03/20 Unknown Unknown 00:01 WBC RBC Hgb Hct MCV MCH MCHC RDW Plt Count Lymph % (Auto) Robertson % (Auto) Lymph # (Auto) Robertson # (Auto) Baso # (Auto) Seg Neutrophils % Seg Neuts % (Manual) Lymphocytes % (Manual) Monocytes % (Manual) Nucleated RBC % Seg Neutrophils # Seg Neutrophils # Man Lymphocytes # (Manual) Monocytes # (Manual) PT 61.1 H INR 6.92 H* APTT 158.7 H* Fibrinogen < 60 L* D-Dimer > 15433 H ABG pH POC ABG pCO2 POC ABG pO2 ABG pO2 ABG HCO3 ABG Base Excess ABG Hemoglobin ABG Oxyhemoglobin ABG Sodium ABG Potassium ABG Chloride ABG Glucose VBG pH 6.949 L* Oxyhemoglobin Carboxyhemoglobin Sodium Potassium Chloride Carbon Dioxide BUN Creatinine Glucose POC Glucose 196 H Random Insulin C-Peptide Lactic Acid Calcium Ionized Calcium Phosphorus Magnesium AST ALT Alkaline Phosphatase Lactate Dehydrogenase NT-Pro-B Natriuret Pep Total Protein Albumin Arterial Blood Glucose Arterial Blood Ionized Calcium Urine WBC (Auto) Vancomycin Trough Phenytoin Crossmatch 10/03/20 10/03/20 10/03/20 00:40 00:40 00:40 WBC RBC Hgb Hct MCV MCH MCHC RDW Plt Count Lymph % (Auto) Robertson % (Auto) Lymph # (Auto) Robertson # (Auto) Baso # (Auto) Seg Neutrophils % Seg Neuts % (Manual) Lymphocytes % (Manual) Monocytes % (Manual) Nucleated RBC % Seg Neutrophils # Seg Neutrophils # Man Lymphocytes # (Manual) Monocytes # (Manual) PT 15.1 H INR 1.21 H APTT Fibrinogen D-Dimer ABG pH POC ABG pCO2 POC ABG pO2 ABG pO2 ABG HCO3 ABG Base Excess ABG Hemoglobin ABG Oxyhemoglobin ABG Sodium ABG Potassium ABG Chloride ABG Glucose VBG pH Oxyhemoglobin Carboxyhemoglobin Sodium 136 L Potassium Chloride Carbon Dioxide BUN Creatinine 1.6 H D Glucose 106 H POC Glucose Random Insulin C-Peptide Lactic Acid 5.60 H* Calcium 6.5 L Ionized Calcium Phosphorus Magnesium AST 232 H ALT 104 H Alkaline Phosphatase Lactate Dehydrogenase NT-Pro-B Natriuret Pep Total Protein 3.9 L D Albumin 2.4 L Arterial Blood Glucose Arterial Blood Ionized Calcium Urine WBC (Auto) Vancomycin Trough Phenytoin Crossmatch 10/03/20 10/03/20 10/03/20 02:08 02:08 02:08 WBC 17.6 H RBC 3.27 L Hgb 9.9 L D Hct 29.9 L D MCV MCH MCHC RDW 16.5 H Plt Count 75 L Lymph % (Auto) Robertson % (Auto) Lymph # (Auto) Robertson # (Auto) Baso # (Auto) Seg Neutrophils % Seg Neuts % (Manual) 76.0 H Lymphocytes % (Manual) Monocytes % (Manual) Nucleated RBC % 8.0 H Seg Neutrophils # Seg Neutrophils # Man 13.4 H Lymphocytes # (Manual) Monocytes # (Manual) PT INR APTT Fibrinogen D-Dimer ABG pH POC ABG pCO2 POC ABG pO2 ABG pO2 ABG HCO3 ABG Base Excess ABG Hemoglobin ABG Oxyhemoglobin ABG Sodium ABG Potassium ABG Chloride ABG Glucose VBG pH Oxyhemoglobin Carboxyhemoglobin Sodium Potassium Chloride Carbon Dioxide 19 L BUN Creatinine 1.4 H Glucose 306 H POC Glucose Random Insulin C-Peptide Lactic Acid 10.50 H* Calcium 6.4 L Ionized Calcium Phosphorus Magnesium AST ALT Alkaline Phosphatase Lactate Dehydrogenase NT-Pro-B Natriuret Pep Total Protein Albumin Arterial Blood Glucose Arterial Blood Ionized Calcium Urine WBC (Auto) Vancomycin Trough Phenytoin Crossmatch 10/03/20 10/03/20 10/03/20 02:42 03:59 05:31 WBC RBC Hgb Hct MCV MCH MCHC RDW Plt Count Lymph % (Auto) Robertson % (Auto) Lymph # (Auto) Robertson # (Auto) Baso # (Auto) Seg Neutrophils % Seg Neuts % (Manual) Lymphocytes % (Manual) Monocytes % (Manual) Nucleated RBC % Seg Neutrophils # Seg Neutrophils # Man Lymphocytes # (Manual) Monocytes # (Manual) PT INR APTT Fibrinogen D-Dimer ABG pH 7.144 L POC ABG pCO2 54.4 H POC ABG pO2 ABG pO2 ABG HCO3 ABG Base Excess ABG Hemoglobin 10.0 L ABG Oxyhemoglobin ABG Sodium ABG Potassium ABG Chloride 108.0 H ABG Glucose 306 H VBG pH Oxyhemoglobin Carboxyhemoglobin Sodium Potassium Chloride Carbon Dioxide BUN Creatinine Glucose POC Glucose 209 H Random Insulin C-Peptide Lactic Acid 9.20 H* Calcium Ionized Calcium Phosphorus Magnesium AST ALT Alkaline Phosphatase Lactate Dehydrogenase NT-Pro-B Natriuret Pep Total Protein Albumin Arterial Blood Glucose 306 H Arterial Blood Ionized Calcium 3.7 L Urine WBC (Auto) Vancomycin Trough Phenytoin Crossmatch 10/03/20 10/03/20 10/03/20 09:00 09:00 09:00 WBC 27.4 H RBC 2.84 L Hgb 8.5 L Hct 25.1 L MCV MCH MCHC RDW 16.1 H Plt Count 72 L Lymph % (Auto) Robertson % (Auto) Lymph # (Auto) Robertson # (Auto) Baso # (Auto) Seg Neutrophils % Seg Neuts % (Manual) Lymphocytes % (Manual) 11.0 L Monocytes % (Manual) Nucleated RBC % 3.0 H Seg Neutrophils # Seg Neutrophils # Man 18.4 H Lymphocytes # (Manual) Monocytes # (Manual) 1.9 H PT INR APTT Fibrinogen D-Dimer ABG pH POC ABG pCO2 POC ABG pO2 ABG pO2 ABG HCO3 ABG Base Excess ABG Hemoglobin ABG Oxyhemoglobin ABG Sodium ABG Potassium ABG Chloride ABG Glucose VBG pH Oxyhemoglobin Carboxyhemoglobin Sodium Potassium Chloride Carbon Dioxide BUN Creatinine 1.7 H Glucose 216 H POC Glucose Random Insulin C-Peptide Lactic Acid 9.20 H* Calcium 6.3 L Ionized Calcium Phosphorus Magnesium AST 331 H ALT 171 H Alkaline Phosphatase Lactate Dehydrogenase NT-Pro-B Natriuret Pep Total Protein 3.7 L Albumin 1.9 L Arterial Blood Glucose Arterial Blood Ionized Calcium Urine WBC (Auto) Vancomycin Trough Phenytoin Crossmatch 10/03/20 10/03/20 10/03/20 11:20 11:46 11:50 WBC 28.7 H RBC 2.67 L Hgb 8.0 L Hct 23.7 L MCV MCH MCHC RDW 16.6 H Plt Count 76 L Lymph % (Auto) Robertson % (Auto) Lymph # (Auto) Robertson # (Auto) Baso # (Auto) Seg Neutrophils % Seg Neuts % (Manual) Lymphocytes % (Manual) Monocytes % (Manual) Nucleated RBC % Seg Neutrophils # Seg Neutrophils # Man Lymphocytes # (Manual) Monocytes # (Manual) PT INR APTT Fibrinogen D-Dimer ABG pH POC ABG pCO2 POC ABG pO2 ABG pO2 ABG HCO3 ABG Base Excess ABG Hemoglobin ABG Oxyhemoglobin ABG Sodium ABG Potassium ABG Chloride ABG Glucose VBG pH Oxyhemoglobin Carboxyhemoglobin Sodium Potassium Chloride Carbon Dioxide BUN Creatinine Glucose POC Glucose 125 H Random Insulin C-Peptide Lactic Acid 8.00 H* Calcium Ionized Calcium Phosphorus Magnesium AST ALT Alkaline Phosphatase Lactate Dehydrogenase NT-Pro-B Natriuret Pep Total Protein Albumin Arterial Blood Glucose Arterial Blood Ionized Calcium Urine WBC (Auto) Vancomycin Trough Phenytoin Crossmatch 10/03/20 10/04/20 10/04/20 11:50 00:40 00:40 WBC RBC Hgb 6.8 L Hct 19.4 L* MCV MCH MCHC RDW Plt Count 49 L Lymph % (Auto) Robertson % (Auto) Lymph # (Auto) Robertson # (Auto) Baso # (Auto) Seg Neutrophils % Seg Neuts % (Manual) Lymphocytes % (Manual) Monocytes % (Manual) Nucleated RBC % Seg Neutrophils # Seg Neutrophils # Man Lymphocytes # (Manual) Monocytes # (Manual) PT INR APTT Fibrinogen D-Dimer ABG pH 7.244 L POC ABG pCO2 POC ABG pO2 ABG pO2 ABG HCO3 ABG Base Excess -4.5 L ABG Hemoglobin 7.3 L ABG Oxyhemoglobin ABG Sodium ABG Potassium ABG Chloride ABG Glucose VBG pH Oxyhemoglobin Carboxyhemoglobin Sodium Potassium Chloride Carbon Dioxide BUN Creatinine Glucose POC Glucose Random Insulin C-Peptide Lactic Acid Calcium Ionized Calcium Phosphorus Magnesium AST ALT Alkaline Phosphatase Lactate Dehydrogenase NT-Pro-B Natriuret Pep Total Protein Albumin Arterial Blood Glucose Arterial Blood Ionized Calcium Urine WBC (Auto) Vancomycin Trough Phenytoin Crossmatch 10/04/20 10/04/20 10/04/20 03:53 10:00 10:00 WBC 14.6 H RBC 2.57 L Hgb 7.6 L Hct 22.5 L MCV MCH MCHC RDW 15.8 H Plt Count 38 L Lymph % (Auto) 7.7 L Robertson % (Auto) Lymph # (Auto) 1.1 L Robertson # (Auto) 0.9 H Baso # (Auto) Seg Neutrophils % 85.6 H Seg Neuts % (Manual) Lymphocytes % (Manual) Monocytes % (Manual) Nucleated RBC % Seg Neutrophils # 12.5 H Seg Neutrophils # Man Lymphocytes # (Manual) Monocytes # (Manual) PT INR APTT Fibrinogen D-Dimer ABG pH POC ABG pCO2 POC ABG pO2 110.6 H ABG pO2 ABG HCO3 ABG Base Excess ABG Hemoglobin 6.7 L ABG Oxyhemoglobin ABG Sodium 132.0 L ABG Potassium ABG Chloride ABG Glucose 111 H VBG pH Oxyhemoglobin Carboxyhemoglobin Sodium 134 L D Potassium Chloride 97.6 L Carbon Dioxide BUN Creatinine 1.7 H Glucose POC Glucose Random Insulin C-Peptide Lactic Acid Calcium 6.3 L Ionized Calcium Phosphorus Magnesium AST 203 H ALT 81 H Alkaline Phosphatase Lactate Dehydrogenase NT-Pro-B Natriuret Pep Total Protein 3.9 L Albumin 2.3 L Arterial Blood Glucose 111 H Arterial Blood Ionized Calcium 3.5 L Urine WBC (Auto) Vancomycin Trough Phenytoin Crossmatch 10/04/20 10/04/20 10/04/20 10:00 10:00 10:14 WBC RBC Hgb Hct MCV MCH MCHC RDW Plt Count Lymph % (Auto) Robertson % (Auto) Lymph # (Auto) Robertson # (Auto) Baso # (Auto) Seg Neutrophils % Seg Neuts % (Manual) Lymphocytes % (Manual) Monocytes % (Manual) Nucleated RBC % Seg Neutrophils # Seg Neutrophils # Man Lymphocytes # (Manual) Monocytes # (Manual) PT INR APTT Fibrinogen D-Dimer > 61562 H ABG pH POC ABG pCO2 POC ABG pO2 ABG pO2 ABG HCO3 ABG Base Excess ABG Hemoglobin ABG Oxyhemoglobin ABG Sodium ABG Potassium ABG Chloride ABG Glucose VBG pH Oxyhemoglobin Carboxyhemoglobin Sodium Potassium Chloride Carbon Dioxide BUN Creatinine Glucose POC Glucose Random Insulin C-Peptide Lactic Acid 3.90 H* Calcium Ionized Calcium Phosphorus Magnesium AST ALT Alkaline Phosphatase Lactate Dehydrogenase NT-Pro-B Natriuret Pep 2788 H Total Protein Albumin Arterial Blood Glucose Arterial Blood Ionized Calcium Urine WBC (Auto) Vancomycin Trough Phenytoin Crossmatch 10/04/20 10/04/20 10/04/20 14:00 14:00 18:00 WBC 15.7 H RBC 3.17 L Hgb 9.3 L 9.6 L Hct 27.2 L 28.0 L MCV MCH MCHC RDW 16.9 H Plt Count 41 L Lymph % (Auto) 8.6 L Robertson % (Auto) Lymph # (Auto) Robertson # (Auto) 0.9 H Baso # (Auto) Seg Neutrophils % 85.4 H Seg Neuts % (Manual) Lymphocytes % (Manual) Monocytes % (Manual) Nucleated RBC % Seg Neutrophils # 13.4 H Seg Neutrophils # Man Lymphocytes # (Manual) Monocytes # (Manual) PT INR APTT Fibrinogen D-Dimer ABG pH POC ABG pCO2 POC ABG pO2 ABG pO2 ABG HCO3 ABG Base Excess ABG Hemoglobin ABG Oxyhemoglobin ABG Sodium ABG Potassium ABG Chloride ABG Glucose VBG pH Oxyhemoglobin Carboxyhemoglobin Sodium 133 L Potassium Chloride 96.4 L Carbon Dioxide BUN 18 H Creatinine 1.7 H Glucose POC Glucose Random Insulin C-Peptide Lactic Acid Calcium 6.3 L Ionized Calcium Phosphorus Magnesium AST ALT Alkaline Phosphatase Lactate Dehydrogenase NT-Pro-B Natriuret Pep Total Protein Albumin Arterial Blood Glucose Arterial Blood Ionized Calcium Urine WBC (Auto) Vancomycin Trough Phenytoin Crossmatch 10/04/20 10/04/20 10/05/20 18:00 22:00 05:00 WBC 17.6 H RBC 3.34 L Hgb 9.9 L Hct 29.4 L MCV MCH MCHC RDW 17.1 H Plt Count 56 L Lymph % (Auto) 8.5 L Robertson % (Auto) Lymph # (Auto) Robertson # (Auto) 1.0 H Baso # (Auto) Seg Neutrophils % 85.1 H Seg Neuts % (Manual) Lymphocytes % (Manual) Monocytes % (Manual) Nucleated RBC % Seg Neutrophils # 15.0 H Seg Neutrophils # Man Lymphocytes # (Manual) Monocytes # (Manual) PT INR APTT Fibrinogen D-Dimer ABG pH POC ABG pCO2 POC ABG pO2 ABG pO2 ABG HCO3 ABG Base Excess ABG Hemoglobin ABG Oxyhemoglobin ABG Sodium ABG Potassium ABG Chloride ABG Glucose VBG pH Oxyhemoglobin Carboxyhemoglobin Sodium 136 L Potassium Chloride Carbon Dioxide BUN 18 H Creatinine 1.7 H Glucose POC Glucose Random Insulin C-Peptide Lactic Acid 2.30 H* Calcium 6.6 L Ionized Calcium Phosphorus Magnesium AST ALT Alkaline Phosphatase Lactate Dehydrogenase NT-Pro-B Natriuret Pep Total Protein Albumin Arterial Blood Glucose Arterial Blood Ionized Calcium Urine WBC (Auto) Vancomycin Trough Phenytoin Crossmatch 10/05/20 10/05/20 10/05/20 05:00 05:00 05:03 WBC RBC Hgb Hct MCV MCH MCHC RDW Plt Count Lymph % (Auto) Robertson % (Auto) Lymph # (Auto) Robertson # (Auto) Baso # (Auto) Seg Neutrophils % Seg Neuts % (Manual) Lymphocytes % (Manual) Monocytes % (Manual) Nucleated RBC % Seg Neutrophils # Seg Neutrophils # Man Lymphocytes # (Manual) Monocytes # (Manual) PT INR APTT Fibrinogen D-Dimer ABG pH 7.458 H POC ABG pCO2 POC ABG pO2 ABG pO2 74.3 L ABG HCO3 27.5 H ABG Base Excess 3.4 H ABG Hemoglobin 10.0 L ABG Oxyhemoglobin ABG Sodium ABG Potassium ABG Chloride ABG Glucose VBG pH Oxyhemoglobin 94.9 L Carboxyhemoglobin Sodium Potassium Chloride Carbon Dioxide BUN 19 H Creatinine 1.8 H Glucose POC Glucose Random Insulin C-Peptide Lactic Acid Calcium 6.8 L Ionized Calcium 3.9 L Phosphorus Magnesium AST 225 H ALT 85 H Alkaline Phosphatase Lactate Dehydrogenase NT-Pro-B Natriuret Pep Total Protein 4.5 L Albumin 2.7 L Arterial Blood Glucose Arterial Blood Ionized Calcium Urine WBC (Auto) Vancomycin Trough Phenytoin Crossmatch 10/05/20 10/05/20 10/05/20 10:10 15:00 19:40 WBC RBC Hgb Hct MCV MCH MCHC RDW Plt Count Lymph % (Auto) Robertson % (Auto) Lymph # (Auto) Robertson # (Auto) Baso # (Auto) Seg Neutrophils % Seg Neuts % (Manual) Lymphocytes % (Manual) Monocytes % (Manual) Nucleated RBC % Seg Neutrophils # Seg Neutrophils # Man Lymphocytes # (Manual) Monocytes # (Manual) PT INR APTT Fibrinogen D-Dimer ABG pH POC ABG pCO2 POC ABG pO2 ABG pO2 ABG HCO3 ABG Base Excess ABG Hemoglobin ABG Oxyhemoglobin ABG Sodium ABG Potassium ABG Chloride ABG Glucose VBG pH Oxyhemoglobin Carboxyhemoglobin Sodium Potassium 3.5 L Chloride Carbon Dioxide 31 H 32 H BUN 19 H 19 H Creatinine 1.8 H 1.8 H Glucose POC Glucose Random Insulin C-Peptide Lactic Acid Calcium 7.0 L 7.2 L Ionized Calcium Phosphorus Magnesium 2.90 H AST ALT Alkaline Phosphatase Lactate Dehydrogenase NT-Pro-B Natriuret Pep Total Protein Albumin Arterial Blood Glucose Arterial Blood Ionized Calcium Urine WBC (Auto) Vancomycin Trough Phenytoin Crossmatch 10/06/20 10/06/20 10/06/20 01:05 03:12 04:00 WBC 17.1 H RBC 3.47 L Hgb Hct MCV MCH MCHC RDW 17.4 H Plt Count 82 L Lymph % (Auto) 8.3 L Robertson % (Auto) Lymph # (Auto) Robertson # (Auto) 1.1 H Baso # (Auto) Seg Neutrophils % 83.8 H Seg Neuts % (Manual) Lymphocytes % (Manual) Monocytes % (Manual) Nucleated RBC % Seg Neutrophils # 14.3 H Seg Neutrophils # Man Lymphocytes # (Manual) Monocytes # (Manual) PT INR APTT Fibrinogen D-Dimer ABG pH 7.474 H POC ABG pCO2 POC ABG pO2 129.5 H ABG pO2 ABG HCO3 ABG Base Excess ABG Hemoglobin 11.4 L ABG Oxyhemoglobin ABG Sodium 131.8 L ABG Potassium ABG Chloride ABG Glucose 103 H VBG pH Oxyhemoglobin Carboxyhemoglobin 0.3 L Sodium Potassium Chloride Carbon Dioxide BUN Creatinine Glucose POC Glucose Random Insulin C-Peptide Lactic Acid Calcium Ionized Calcium Phosphorus Magnesium 3.70 H AST ALT Alkaline Phosphatase Lactate Dehydrogenase NT-Pro-B Natriuret Pep Total Protein Albumin Arterial Blood Glucose 103 H Arterial Blood Ionized Calcium 4.2 L Urine WBC (Auto) Vancomycin Trough Phenytoin Crossmatch 10/06/20 10/06/20 10/06/20 04:00 05:31 08:12 WBC RBC Hgb Hct MCV MCH MCHC RDW Plt Count Lymph % (Auto) Robertson % (Auto) Lymph # (Auto) Robertson # (Auto) Baso # (Auto) Seg Neutrophils % Seg Neuts % (Manual) Lymphocytes % (Manual) Monocytes % (Manual) Nucleated RBC % Seg Neutrophils # Seg Neutrophils # Man Lymphocytes # (Manual) Monocytes # (Manual) PT INR APTT Fibrinogen D-Dimer ABG pH POC ABG pCO2 POC ABG pO2 ABG pO2 ABG HCO3 ABG Base Excess ABG Hemoglobin ABG Oxyhemoglobin ABG Sodium ABG Potassium ABG Chloride ABG Glucose VBG pH Oxyhemoglobin Carboxyhemoglobin Sodium Potassium 3.5 L Chloride Carbon Dioxide BUN 19 H Creatinine 1.8 H Glucose 102 H POC Glucose 116 H Random Insulin C-Peptide Lactic Acid Calcium 7.2 L Ionized Calcium Phosphorus Magnesium 5.40 H AST 307 H ALT 137 H Alkaline Phosphatase Lactate Dehydrogenase NT-Pro-B Natriuret Pep Total Protein 4.5 L Albumin 2.6 L Arterial Blood Glucose Arterial Blood Ionized Calcium Urine WBC (Auto) Vancomycin Trough Phenytoin Crossmatch 10/06/20 10/06/20 10/06/20 11:00 11:50 20:13 WBC RBC Hgb Hct MCV MCH MCHC RDW Plt Count Lymph % (Auto) Robertson % (Auto) Lymph # (Auto) Robertson # (Auto) Baso # (Auto) Seg Neutrophils % Seg Neuts % (Manual) Lymphocytes % (Manual) Monocytes % (Manual) Nucleated RBC % Seg Neutrophils # Seg Neutrophils # Man Lymphocytes # (Manual) Monocytes # (Manual) PT INR APTT Fibrinogen D-Dimer ABG pH POC ABG pCO2 POC ABG pO2 ABG pO2 ABG HCO3 ABG Base Excess ABG Hemoglobin ABG Oxyhemoglobin ABG Sodium ABG Potassium ABG Chloride ABG Glucose VBG pH Oxyhemoglobin Carboxyhemoglobin Sodium Potassium Chloride Carbon Dioxide BUN Creatinine Glucose POC Glucose 106 H Random Insulin C-Peptide Lactic Acid Calcium Ionized Calcium Phosphorus Magnesium 6.50 H 6.20 H AST ALT Alkaline Phosphatase Lactate Dehydrogenase NT-Pro-B Natriuret Pep Total Protein Albumin Arterial Blood Glucose Arterial Blood Ionized Calcium Urine WBC (Auto) Vancomycin Trough Phenytoin Crossmatch 10/06/20 10/06/20 10/06/20 20:17 22:29 23:57 WBC RBC Hgb Hct MCV MCH MCHC RDW Plt Count Lymph % (Auto) Robertson % (Auto) Lymph # (Auto) Robertson # (Auto) Baso # (Auto) Seg Neutrophils % Seg Neuts % (Manual) Lymphocytes % (Manual) Monocytes % (Manual) Nucleated RBC % Seg Neutrophils # Seg Neutrophils # Man Lymphocytes # (Manual) Monocytes # (Manual) PT INR APTT Fibrinogen D-Dimer ABG pH POC ABG pCO2 POC ABG pO2 ABG pO2 ABG HCO3 ABG Base Excess ABG Hemoglobin ABG Oxyhemoglobin ABG Sodium ABG Potassium ABG Chloride ABG Glucose VBG pH Oxyhemoglobin Carboxyhemoglobin Sodium Potassium Chloride Carbon Dioxide BUN Creatinine Glucose POC Glucose 112 H 126 H 133 H Random Insulin C-Peptide Lactic Acid Calcium Ionized Calcium Phosphorus Magnesium AST ALT Alkaline Phosphatase Lactate Dehydrogenase NT-Pro-B Natriuret Pep Total Protein Albumin Arterial Blood Glucose Arterial Blood Ionized Calcium Urine WBC (Auto) Vancomycin Trough Phenytoin Crossmatch 10/07/20 10/07/20 10/07/20 00:35 02:22 03:16 WBC RBC Hgb Hct MCV MCH MCHC RDW Plt Count Lymph % (Auto) Robertson % (Auto) Lymph # (Auto) Robertson # (Auto) Baso # (Auto) Seg Neutrophils % Seg Neuts % (Manual) Lymphocytes % (Manual) Monocytes % (Manual) Nucleated RBC % Seg Neutrophils # Seg Neutrophils # Man Lymphocytes # (Manual) Monocytes # (Manual) PT INR APTT Fibrinogen D-Dimer ABG pH POC ABG pCO2 POC ABG pO2 ABG pO2 ABG HCO3 ABG Base Excess ABG Hemoglobin 11.6 L ABG Oxyhemoglobin ABG Sodium ABG Potassium ABG Chloride ABG Glucose 156 H VBG pH Oxyhemoglobin Carboxyhemoglobin 0.3 L Sodium Potassium Chloride Carbon Dioxide BUN Creatinine Glucose POC Glucose 124 H Random Insulin C-Peptide Lactic Acid Calcium Ionized Calcium Phosphorus Magnesium 5.90 H AST ALT Alkaline Phosphatase Lactate Dehydrogenase NT-Pro-B Natriuret Pep Total Protein Albumin Arterial Blood Glucose 156 H Arterial Blood Ionized Calcium 4.2 L Urine WBC (Auto) Vancomycin Trough Phenytoin Crossmatch 10/07/20 10/07/20 10/07/20 04:06 05:45 07:05 WBC 19.2 H RBC 3.57 L Hgb Hct MCV MCH MCHC 35 H RDW 17.1 H Plt Count 129 L Lymph % (Auto) Robertson % (Auto) Lymph # (Auto) Robertson # (Auto) Baso # (Auto) Seg Neutrophils % Seg Neuts % (Manual) 94.0 H Lymphocytes % (Manual) 6.0 L Monocytes % (Manual) Nucleated RBC % Seg Neutrophils # Seg Neutrophils # Man 18.0 H Lymphocytes # (Manual) Monocytes # (Manual) PT INR APTT Fibrinogen D-Dimer ABG pH POC ABG pCO2 POC ABG pO2 ABG pO2 ABG HCO3 ABG Base Excess ABG Hemoglobin ABG Oxyhemoglobin ABG Sodium ABG Potassium ABG Chloride ABG Glucose VBG pH Oxyhemoglobin Carboxyhemoglobin Sodium Potassium Chloride Carbon Dioxide BUN Creatinine Glucose POC Glucose 135 H 149 H Random Insulin C-Peptide Lactic Acid Calcium Ionized Calcium Phosphorus Magnesium AST ALT Alkaline Phosphatase Lactate Dehydrogenase NT-Pro-B Natriuret Pep Total Protein Albumin Arterial Blood Glucose Arterial Blood Ionized Calcium Urine WBC (Auto) Vancomycin Trough Phenytoin Crossmatch 10/07/20 10/07/20 10/07/20 07:05 07:05 12:21 WBC RBC Hgb Hct MCV MCH MCHC RDW Plt Count Lymph % (Auto) Robertson % (Auto) Lymph # (Auto) Robertson # (Auto) Baso # (Auto) Seg Neutrophils % Seg Neuts % (Manual) Lymphocytes % (Manual) Monocytes % (Manual) Nucleated RBC % Seg Neutrophils # Seg Neutrophils # Man Lymphocytes # (Manual) Monocytes # (Manual) PT INR APTT Fibrinogen D-Dimer ABG pH POC ABG pCO2 POC ABG pO2 ABG pO2 ABG HCO3 ABG Base Excess ABG Hemoglobin ABG Oxyhemoglobin ABG Sodium ABG Potassium ABG Chloride ABG Glucose VBG pH Oxyhemoglobin Carboxyhemoglobin Sodium Potassium Chloride Carbon Dioxide BUN 21 H Creatinine 1.7 H Glucose 171 H POC Glucose 124 H Random Insulin C-Peptide Lactic Acid Calcium 7.4 L Ionized Calcium Phosphorus Magnesium 6.10 H AST 245 H ALT 147 H Alkaline Phosphatase Lactate Dehydrogenase NT-Pro-B Natriuret Pep Total Protein 5.3 L Albumin 2.8 L Arterial Blood Glucose Arterial Blood Ionized Calcium Urine WBC (Auto) Vancomycin Trough Phenytoin Crossmatch 10/07/20 10/07/20 10/07/20 19:52 21:00 21:50 WBC RBC Hgb Hct MCV MCH MCHC RDW Plt Count Lymph % (Auto) Robertson % (Auto) Lymph # (Auto) Robertson # (Auto) Baso # (Auto) Seg Neutrophils % Seg Neuts % (Manual) Lymphocytes % (Manual) Monocytes % (Manual) Nucleated RBC % Seg Neutrophils # Seg Neutrophils # Man Lymphocytes # (Manual) Monocytes # (Manual) PT INR APTT Fibrinogen D-Dimer ABG pH POC ABG pCO2 POC ABG pO2 ABG pO2 ABG HCO3 ABG Base Excess ABG Hemoglobin ABG Oxyhemoglobin ABG Sodium ABG Potassium ABG Chloride ABG Glucose VBG pH Oxyhemoglobin Carboxyhemoglobin Sodium Potassium Chloride Carbon Dioxide BUN Creatinine Glucose POC Glucose 193 H 138 H Random Insulin C-Peptide Lactic Acid Calcium Ionized Calcium 4.4 L Phosphorus Magnesium AST ALT Alkaline Phosphatase Lactate Dehydrogenase NT-Pro-B Natriuret Pep Total Protein Albumin Arterial Blood Glucose Arterial Blood Ionized Calcium Urine WBC (Auto) Vancomycin Trough Phenytoin Crossmatch 10/07/20 10/08/20 10/08/20 23:41 04:20 05:30 WBC RBC Hgb Hct MCV MCH MCHC RDW Plt Count Lymph % (Auto) Robertson % (Auto) Lymph # (Auto) Robertson # (Auto) Baso # (Auto) Seg Neutrophils % Seg Neuts % (Manual) Lymphocytes % (Manual) Monocytes % (Manual) Nucleated RBC % Seg Neutrophils # Seg Neutrophils # Man Lymphocytes # (Manual) Monocytes # (Manual) PT INR APTT Fibrinogen D-Dimer ABG pH 7.467 H POC ABG pCO2 POC ABG pO2 189.8 H ABG pO2 ABG HCO3 ABG Base Excess ABG Hemoglobin 10.8 L ABG Oxyhemoglobin ABG Sodium ABG Potassium ABG Chloride ABG Glucose 133 H VBG pH Oxyhemoglobin Carboxyhemoglobin Sodium Potassium Chloride Carbon Dioxide BUN Creatinine Glucose POC Glucose 118 H 114 H Random Insulin C-Peptide Lactic Acid Calcium Ionized Calcium Phosphorus Magnesium AST ALT Alkaline Phosphatase Lactate Dehydrogenase NT-Pro-B Natriuret Pep Total Protein Albumin Arterial Blood Glucose 133 H Arterial Blood Ionized Calcium 4.2 L Urine WBC (Auto) Vancomycin Trough Phenytoin Crossmatch 10/08/20 10/08/20 10/08/20 05:43 06:42 06:42 WBC 23.6 H RBC 3.54 L Hgb Hct MCV MCH MCHC RDW 17.8 H Plt Count Lymph % (Auto) Robertson % (Auto) Lymph # (Auto) Robertson # (Auto) Baso # (Auto) Seg Neutrophils % Seg Neuts % (Manual) 93.0 H Lymphocytes % (Manual) 3.0 L Monocytes % (Manual) Nucleated RBC % 1.0 H Seg Neutrophils # Seg Neutrophils # Man 21.9 H Lymphocytes # (Manual) 0.7 L Monocytes # (Manual) 0.9 H PT INR APTT Fibrinogen D-Dimer ABG pH POC ABG pCO2 POC ABG pO2 ABG pO2 ABG HCO3 ABG Base Excess ABG Hemoglobin ABG Oxyhemoglobin ABG Sodium ABG Potassium ABG Chloride ABG Glucose VBG pH Oxyhemoglobin Carboxyhemoglobin Sodium Potassium Chloride Carbon Dioxide BUN 28 H Creatinine 1.6 H Glucose 141 H POC Glucose 126 H Random Insulin C-Peptide Lactic Acid Calcium 7.6 L Ionized Calcium Phosphorus Magnesium AST 162 H ALT 103 H Alkaline Phosphatase Lactate Dehydrogenase NT-Pro-B Natriuret Pep Total Protein 5.4 L Albumin 2.7 L Arterial Blood Glucose Arterial Blood Ionized Calcium Urine WBC (Auto) Vancomycin Trough Phenytoin Crossmatch 10/08/20 10/08/20 10/08/20 11:20 16:05 20:14 WBC RBC Hgb Hct MCV MCH MCHC RDW Plt Count Lymph % (Auto) Robertson % (Auto) Lymph # (Auto) Robertson # (Auto) Baso # (Auto) Seg Neutrophils % Seg Neuts % (Manual) Lymphocytes % (Manual) Monocytes % (Manual) Nucleated RBC % Seg Neutrophils # Seg Neutrophils # Man Lymphocytes # (Manual) Monocytes # (Manual) PT INR APTT Fibrinogen D-Dimer ABG pH POC ABG pCO2 POC ABG pO2 ABG pO2 ABG HCO3 ABG Base Excess ABG Hemoglobin ABG Oxyhemoglobin ABG Sodium ABG Potassium ABG Chloride ABG Glucose VBG pH Oxyhemoglobin Carboxyhemoglobin Sodium Potassium Chloride Carbon Dioxide BUN Creatinine Glucose POC Glucose 127 H 172 H 147 H Random Insulin C-Peptide Lactic Acid Calcium Ionized Calcium Phosphorus Magnesium AST ALT Alkaline Phosphatase Lactate Dehydrogenase NT-Pro-B Natriuret Pep Total Protein Albumin Arterial Blood Glucose Arterial Blood Ionized Calcium Urine WBC (Auto) Vancomycin Trough Phenytoin Crossmatch 10/08/20 10/08/20 10/09/20 21:27 23:24 02:10 WBC RBC Hgb Hct MCV MCH MCHC RDW Plt Count Lymph % (Auto) Robertson % (Auto) Lymph # (Auto) Robertson # (Auto) Baso # (Auto) Seg Neutrophils % Seg Neuts % (Manual) Lymphocytes % (Manual) Monocytes % (Manual) Nucleated RBC % Seg Neutrophils # Seg Neutrophils # Man Lymphocytes # (Manual) Monocytes # (Manual) PT INR APTT Fibrinogen D-Dimer ABG pH POC ABG pCO2 POC ABG pO2 ABG pO2 ABG HCO3 ABG Base Excess ABG Hemoglobin ABG Oxyhemoglobin ABG Sodium ABG Potassium ABG Chloride ABG Glucose VBG pH Oxyhemoglobin Carboxyhemoglobin Sodium Potassium Chloride Carbon Dioxide BUN Creatinine Glucose POC Glucose 140 H 135 H 111 H Random Insulin C-Peptide Lactic Acid Calcium Ionized Calcium Phosphorus Magnesium AST ALT Alkaline Phosphatase Lactate Dehydrogenase NT-Pro-B Natriuret Pep Total Protein Albumin Arterial Blood Glucose Arterial Blood Ionized Calcium Urine WBC (Auto) Vancomycin Trough Phenytoin Crossmatch 10/09/20 10/09/20 10/09/20 03:44 04:39 05:46 WBC 19.7 H RBC 3.51 L Hgb Hct MCV MCH MCHC RDW 17.7 H Plt Count Lymph % (Auto) Robertson % (Auto) Lymph # (Auto) Robertson # (Auto) Baso # (Auto) Seg Neutrophils % Seg Neuts % (Manual) 86.0 H Lymphocytes % (Manual) 4.0 L Monocytes % (Manual) 9.0 H Nucleated RBC % Seg Neutrophils # Seg Neutrophils # Man 16.9 H Lymphocytes # (Manual) 0.8 L Monocytes # (Manual) 1.8 H PT INR APTT Fibrinogen D-Dimer ABG pH 7.513 H POC ABG pCO2 POC ABG pO2 33.6 L ABG pO2 ABG HCO3 ABG Base Excess ABG Hemoglobin 11.1 L ABG Oxyhemoglobin 70.2 L ABG Sodium ABG Potassium 3.2 L ABG Chloride 108.0 H ABG Glucose 108 H VBG pH Oxyhemoglobin Carboxyhemoglobin Sodium Potassium Chloride Carbon Dioxide BUN Creatinine Glucose POC Glucose 109 H Random Insulin C-Peptide Lactic Acid Calcium Ionized Calcium Phosphorus Magnesium AST ALT Alkaline Phosphatase Lactate Dehydrogenase NT-Pro-B Natriuret Pep Total Protein Albumin Arterial Blood Glucose 108 H Arterial Blood Ionized Calcium 4.3 L Urine WBC (Auto) Vancomycin Trough Phenytoin Crossmatch 10/09/20 10/10/20 10/10/20 05:46 04:00 04:00 WBC 18.4 H RBC Hgb Hct MCV MCH MCHC RDW 17.5 H Plt Count Lymph % (Auto) 9.8 L Robertson % (Auto) 8.8 H Lymph # (Auto) Robertson # (Auto) 1.6 H Baso # (Auto) Seg Neutrophils % 80.0 H Seg Neuts % (Manual) Lymphocytes % (Manual) Monocytes % (Manual) Nucleated RBC % Seg Neutrophils # 14.7 H Seg Neutrophils # Man Lymphocytes # (Manual) Monocytes # (Manual) PT INR APTT Fibrinogen D-Dimer ABG pH POC ABG pCO2 POC ABG pO2 ABG pO2 ABG HCO3 ABG Base Excess ABG Hemoglobin ABG Oxyhemoglobin ABG Sodium ABG Potassium ABG Chloride ABG Glucose VBG pH Oxyhemoglobin Carboxyhemoglobin Sodium 146 H Potassium 3.2 L 2.9 L* Chloride 108.9 H 112.6 H Carbon Dioxide BUN 34 H 28 H Creatinine 1.4 H 1.3 H Glucose 109 H 101 H POC Glucose Random Insulin C-Peptide Lactic Acid Calcium 7.6 L 7.8 L Ionized Calcium Phosphorus Magnesium AST 137 H 122 H ALT 99 H 81 H Alkaline Phosphatase Lactate Dehydrogenase NT-Pro-B Natriuret Pep Total Protein 5.1 L 5.2 L Albumin 2.6 L 2.7 L Arterial Blood Glucose Arterial Blood Ionized Calcium Urine WBC (Auto) Vancomycin Trough Phenytoin Crossmatch 10/10/20 10/10/20 10/11/20 04:42 09:50 00:44 WBC RBC Hgb Hct MCV MCH MCHC RDW Plt Count Lymph % (Auto) Robertson % (Auto) Lymph # (Auto) Robertson # (Auto) Baso # (Auto) Seg Neutrophils % Seg Neuts % (Manual) Lymphocytes % (Manual) Monocytes % (Manual) Nucleated RBC % Seg Neutrophils # Seg Neutrophils # Man Lymphocytes # (Manual) Monocytes # (Manual) PT INR APTT Fibrinogen D-Dimer ABG pH 7.534 H POC ABG pCO2 POC ABG pO2 ABG pO2 95.2 H ABG HCO3 ABG Base Excess ABG Hemoglobin 11.3 L ABG Oxyhemoglobin ABG Sodium ABG Potassium ABG Chloride ABG Glucose VBG pH Oxyhemoglobin Carboxyhemoglobin Sodium Potassium Chloride Carbon Dioxide BUN Creatinine Glucose POC Glucose 109 H 106 H Random Insulin C-Peptide Lactic Acid Calcium Ionized Calcium Phosphorus Magnesium AST ALT Alkaline Phosphatase Lactate Dehydrogenase NT-Pro-B Natriuret Pep Total Protein Albumin Arterial Blood Glucose Arterial Blood Ionized Calcium Urine WBC (Auto) Vancomycin Trough Phenytoin Crossmatch 10/11/20 10/11/20 10/11/20 04:00 04:00 06:08 WBC 27.0 H RBC Hgb Hct MCV MCH MCHC RDW 17.7 H Plt Count Lymph % (Auto) 6.3 L Robertson % (Auto) Lymph # (Auto) Robertson # (Auto) 1.5 H Baso # (Auto) Seg Neutrophils % 87.1 H Seg Neuts % (Manual) Lymphocytes % (Manual) Monocytes % (Manual) Nucleated RBC % Seg Neutrophils # 23.5 H Seg Neutrophils # Man Lymphocytes # (Manual) Monocytes # (Manual) PT INR APTT Fibrinogen D-Dimer ABG pH POC ABG pCO2 POC ABG pO2 ABG pO2 ABG HCO3 ABG Base Excess ABG Hemoglobin ABG Oxyhemoglobin ABG Sodium ABG Potassium ABG Chloride ABG Glucose VBG pH Oxyhemoglobin Carboxyhemoglobin Sodium Potassium 3.2 L Chloride 110.4 H Carbon Dioxide 19 L BUN 22 H Creatinine Glucose 116 H POC Glucose 107 H Random Insulin C-Peptide Lactic Acid Calcium 7.7 L Ionized Calcium Phosphorus Magnesium 1.60 L AST ALT Alkaline Phosphatase Lactate Dehydrogenase NT-Pro-B Natriuret Pep Total Protein Albumin Arterial Blood Glucose Arterial Blood Ionized Calcium Urine WBC (Auto) Vancomycin Trough Phenytoin Crossmatch 10/11/20 10/11/20 10/12/20 11:41 13:26 03:52 WBC RBC Hgb Hct MCV MCH MCHC RDW Plt Count Lymph % (Auto) [place] % (Auto) Lymph # (Auto) Robertson # (Auto) Baso # (Auto) Seg Neutrophils % Seg Neuts % (Manual) Lymphocytes % (Manual) Monocytes % (Manual) Nucleated RBC % Seg Neutrophils # Seg Neutrophils # Man Lymphocytes # (Manual) Monocytes # (Manual) PT INR APTT Fibrinogen D-Dimer ABG pH POC ABG pCO2 POC ABG pO2 ABG pO2 ABG HCO3 ABG Base Excess ABG Hemoglobin ABG Oxyhemoglobin ABG Sodium ABG Potassium ABG Chloride ABG Glucose VBG pH Oxyhemoglobin Carboxyhemoglobin Sodium Potassium Chloride Carbon Dioxide BUN Creatinine Glucose POC Glucose 116 H 114 H Random Insulin C-Peptide Lactic Acid Calcium Ionized Calcium Phosphorus Magnesium AST ALT Alkaline Phosphatase Lactate Dehydrogenase NT-Pro-B Natriuret Pep Total Protein Albumin Arterial Blood Glucose Arterial Blood Ionized Calcium Urine WBC (Auto) 24.0 H Vancomycin Trough Phenytoin Crossmatch 10/12/20 10/12/20 10/12/20 04:24 14:47 21:33 WBC RBC Hgb Hct MCV MCH MCHC RDW Plt Count Lymph % (Auto) Robertson % (Auto) Lymph # (Auto) Robertson # (Auto) Baso # (Auto) Seg Neutrophils % Seg Neuts % (Manual) Lymphocytes % (Manual) Monocytes % (Manual) Nucleated RBC % Seg Neutrophils # Seg Neutrophils # Man Lymphocytes # (Manual) Monocytes # (Manual) PT INR APTT Fibrinogen D-Dimer ABG pH POC ABG pCO2 POC ABG pO2 ABG pO2 ABG HCO3 ABG Base Excess ABG Hemoglobin ABG Oxyhemoglobin ABG Sodium ABG Potassium ABG Chloride ABG Glucose VBG pH Oxyhemoglobin Carboxyhemoglobin Sodium Potassium Chloride 109.9 H Carbon Dioxide 13 L BUN 18 H Creatinine Glucose 119 H POC Glucose 107 H Random Insulin C-Peptide Lactic Acid Calcium 7.6 L Ionized Calcium Phosphorus Magnesium 1.60 L AST ALT Alkaline Phosphatase Lactate Dehydrogenase NT-Pro-B Natriuret Pep Total Protein Albumin Arterial Blood Glucose Arterial Blood Ionized Calcium Urine WBC (Auto) Vancomycin Trough Phenytoin Crossmatch 10/12/20 10/12/20 10/13/20 Unknown Unknown 07:00 WBC 24.3 H RBC 3.38 L Hgb 9.8 L Hct MCV MCH MCHC RDW 18.7 H Plt Count Lymph % (Auto) Robertson % (Auto) Lymph # (Auto) Robertson # (Auto) Baso # (Auto) Seg Neutrophils % Seg Neuts % (Manual) 93.5 H Lymphocytes % (Manual) 4.5 L Monocytes % (Manual) Nucleated RBC % Seg Neutrophils # Seg Neutrophils # Man 22.7 H Lymphocytes # (Manual) 1.1 L Monocytes # (Manual) PT INR APTT Fibrinogen D-Dimer ABG pH POC ABG pCO2 POC ABG pO2 ABG pO2 ABG HCO3 ABG Base Excess ABG Hemoglobin ABG Oxyhemoglobin ABG Sodium ABG Potassium ABG Chloride ABG Glucose VBG pH Oxyhemoglobin Carboxyhemoglobin Sodium 135 L D Potassium 3.1 L Chloride Carbon Dioxide 17 L BUN Creatinine Glucose 510 H* POC Glucose Random Insulin C-Peptide Lactic Acid Calcium 7.2 L Ionized Calcium Phosphorus Magnesium AST ALT Alkaline Phosphatase Lactate Dehydrogenase NT-Pro-B Natriuret Pep Total Protein Albumin Arterial Blood Glucose Arterial Blood Ionized Calcium Urine WBC (Auto) Vancomycin Trough Phenytoin 5.7 L Crossmatch 10/13/20 10/13/20 10/13/20 07:00 07:00 07:18 WBC 23.6 H RBC 3.26 L Hgb 9.4 L Hct 28.7 L MCV MCH MCHC RDW 18.3 H Plt Count Lymph % (Auto) Robertson % (Auto) Lymph # (Auto) Robertson # (Auto) Baso # (Auto) Seg Neutrophils % Seg Neuts % (Manual) Lymphocytes % (Manual) Monocytes % (Manual) Nucleated RBC % Seg Neutrophils # Seg Neutrophils # Man Lymphocytes # (Manual) Monocytes # (Manual) PT INR APTT Fibrinogen D-Dimer ABG pH 7.473 H POC ABG pCO2 20.7 L POC ABG pO2 137.9 H ABG pO2 ABG HCO3 ABG Base Excess ABG Hemoglobin 11.2 L ABG Oxyhemoglobin 98.3 H ABG Sodium 135.9 L ABG Potassium ABG Chloride 111.0 H ABG Glucose 109 H VBG pH Oxyhemoglobin Carboxyhemoglobin 0.3 L Sodium 135 L Potassium 3.5 L Chloride 109.1 H Carbon Dioxide 18 L BUN Creatinine Glucose POC Glucose Random Insulin C-Peptide Lactic Acid Calcium 7.3 L Ionized Calcium Phosphorus Magnesium 1.60 L AST ALT Alkaline Phosphatase Lactate Dehydrogenase NT-Pro-B Natriuret Pep Total Protein Albumin Arterial Blood Glucose 109 H Arterial Blood Ionized Calcium Urine WBC (Auto) Vancomycin Trough Phenytoin Crossmatch 10/14/20 10/14/20 10/15/20 04:00 04:00 05:50 WBC 28.6 H 23.2 H RBC 3.61 L 3.43 L Hgb 9.9 L Hct 30.0 L MCV MCH MCHC RDW 18.3 H 18.2 H Plt Count Lymph % (Auto) Robertson % (Auto) Lymph # (Auto) Robertson # (Auto) Baso # (Auto) Seg Neutrophils % Seg Neuts % (Manual) 88.0 H 90.0 H Lymphocytes % (Manual) 5.0 L 4.0 L Monocytes % (Manual) Nucleated RBC % Seg Neutrophils # Seg Neutrophils # Man 25.2 H 20.9 H Lymphocytes # (Manual) 0.9 L Monocytes # (Manual) 1.4 H 0.9 H PT INR APTT Fibrinogen D-Dimer ABG pH POC ABG pCO2 POC ABG pO2 ABG pO2 ABG HCO3 ABG Base Excess ABG Hemoglobin ABG Oxyhemoglobin ABG Sodium ABG Potassium ABG Chloride ABG Glucose VBG pH Oxyhemoglobin Carboxyhemoglobin Sodium Potassium Chloride 109.9 H Carbon Dioxide 17 L BUN Creatinine Glucose POC Glucose Random Insulin C-Peptide Lactic Acid Calcium Ionized Calcium Phosphorus Magnesium AST ALT Alkaline Phosphatase Lactate Dehydrogenase NT-Pro-B Natriuret Pep Total Protein Albumin Arterial Blood Glucose Arterial Blood Ionized Calcium Urine WBC (Auto) Vancomycin Trough Phenytoin Crossmatch 10/15/20 10/16/20 10/17/20 05:50 11:57 04:57 WBC 15.2 H RBC 3.43 L Hgb Hct MCV MCH MCHC RDW 18.1 H Plt Count Lymph % (Auto) [place] % (Auto) Lymph # (Auto) [place] # (Auto) Baso # (Auto) Seg Neutrophils % Seg Neuts % (Manual) Lymphocytes % (Manual) Monocytes % (Manual) Nucleated RBC % Seg Neutrophils # Seg Neutrophils # Man Lymphocytes # (Manual) Monocytes # (Manual) PT INR APTT Fibrinogen D-Dimer ABG pH POC ABG pCO2 POC ABG pO2 ABG pO2 ABG HCO3 ABG Base Excess ABG Hemoglobin ABG Oxyhemoglobin ABG Sodium ABG Potassium ABG Chloride ABG Glucose VBG pH Oxyhemoglobin Carboxyhemoglobin Sodium Potassium Chloride 110.3 H Carbon Dioxide 18 L BUN Creatinine Glucose 105 H POC Glucose 111 H Random Insulin C-Peptide Lactic Acid Calcium 8.3 L Ionized Calcium Phosphorus Magnesium AST ALT Alkaline Phosphatase Lactate Dehydrogenase NT-Pro-B Natriuret Pep Total Protein Albumin Arterial Blood Glucose Arterial Blood Ionized Calcium Urine WBC (Auto) Vancomycin Trough Phenytoin Crossmatch 10/17/20 10/17/20 10/18/20 05:25 21:16 01:31 WBC RBC Hgb Hct MCV MCH MCHC RDW Plt Count Lymph % (Auto) [place] % (Auto) Lymph # (Auto) [place] # (Auto) Baso # (Auto) Seg Neutrophils % Seg Neuts % (Manual) Lymphocytes % (Manual) Monocytes % (Manual) Nucleated RBC % Seg Neutrophils # Seg Neutrophils # Man Lymphocytes # (Manual) Monocytes # (Manual) PT INR APTT Fibrinogen D-Dimer ABG pH POC ABG pCO2 POC ABG pO2 ABG pO2 ABG HCO3 ABG Base Excess ABG Hemoglobin ABG Oxyhemoglobin ABG Sodium ABG Potassium ABG Chloride ABG Glucose VBG pH Oxyhemoglobin Carboxyhemoglobin Sodium Potassium Chloride Carbon Dioxide BUN Creatinine Glucose POC Glucose 107 H 106 H 119 H Random Insulin C-Peptide Lactic Acid Calcium Ionized Calcium Phosphorus Magnesium AST ALT Alkaline Phosphatase Lactate Dehydrogenase NT-Pro-B Natriuret Pep Total Protein Albumin Arterial Blood Glucose Arterial Blood Ionized Calcium Urine WBC (Auto) Vancomycin Trough Phenytoin Crossmatch 10/18/20 10/18/20 10/19/20 05:45 11:23 01:14 WBC RBC Hgb Hct MCV MCH MCHC RDW Plt Count Lymph % (Auto) [place] % (Auto) Lymph # (Auto) [place] # (Auto) Baso # (Auto) Seg Neutrophils % Seg Neuts % (Manual) Lymphocytes % (Manual) Monocytes % (Manual) Nucleated RBC % Seg Neutrophils # Seg Neutrophils # Man Lymphocytes # (Manual) Monocytes # (Manual) PT INR APTT Fibrinogen D-Dimer ABG pH POC ABG pCO2 POC ABG pO2 ABG pO2 ABG HCO3 ABG Base Excess ABG Hemoglobin ABG Oxyhemoglobin ABG Sodium ABG Potassium ABG Chloride ABG Glucose VBG pH Oxyhemoglobin Carboxyhemoglobin Sodium Potassium Chloride Carbon Dioxide BUN Creatinine Glucose POC Glucose 106 H 115 H 108 H Random Insulin C-Peptide Lactic Acid Calcium Ionized Calcium Phosphorus Magnesium AST ALT Alkaline Phosphatase Lactate Dehydrogenase NT-Pro-B Natriuret Pep Total Protein Albumin Arterial Blood Glucose Arterial Blood Ionized Calcium Urine WBC (Auto) Vancomycin Trough Phenytoin Crossmatch 10/19/20 10/20/20 10/20/20 09:57 05:40 07:59 WBC RBC Hgb Hct MCV MCH MCHC RDW Plt Count Lymph % (Auto) [place] % (Auto) Lymph # (Auto) [place] # (Auto) Baso # (Auto) Seg Neutrophils % Seg Neuts % (Manual) Lymphocytes % (Manual) Monocytes % (Manual) Nucleated RBC % Seg Neutrophils # Seg Neutrophils # Man Lymphocytes # (Manual) Monocytes # (Manual) PT INR APTT Fibrinogen D-Dimer ABG pH POC ABG pCO2 POC ABG pO2 ABG pO2 ABG HCO3 ABG Base Excess ABG Hemoglobin ABG Oxyhemoglobin ABG Sodium ABG Potassium ABG Chloride ABG Glucose VBG pH Oxyhemoglobin Carboxyhemoglobin Sodium Potassium Chloride Carbon Dioxide BUN Creatinine Glucose 106 H POC Glucose 122 H 109 H Random Insulin C-Peptide Lactic Acid Calcium Ionized Calcium Phosphorus Magnesium AST ALT Alkaline Phosphatase Lactate Dehydrogenase NT-Pro-B Natriuret Pep Total Protein Albumin Arterial Blood Glucose Arterial Blood Ionized Calcium Urine WBC (Auto) Vancomycin Trough Phenytoin Crossmatch 10/20/20 10/20/20 10/21/20 16:52 16:52 13:54 WBC 18.8 H 17.0 H RBC Hgb Hct MCV MCH MCHC RDW 17.7 H 17.8 H Plt Count 547 H 544 H Lymph % (Auto) 11.2 L Robertson % (Auto) 8.1 H Lymph # (Auto) Robertson # (Auto) 1.5 H Baso # (Auto) 0.2 H Seg Neutrophils % 78.8 H Seg Neuts % (Manual) Lymphocytes % (Manual) Monocytes % (Manual) Nucleated RBC % Seg Neutrophils # 14.8 H Seg Neutrophils # Man Lymphocytes # (Manual) Monocytes # (Manual) PT INR APTT Fibrinogen D-Dimer ABG pH POC ABG pCO2 POC ABG pO2 ABG pO2 ABG HCO3 ABG Base Excess ABG Hemoglobin ABG Oxyhemoglobin ABG Sodium ABG Potassium ABG Chloride ABG Glucose VBG pH Oxyhemoglobin Carboxyhemoglobin Sodium Potassium Chloride Carbon Dioxide BUN Creatinine Glucose POC Glucose Random Insulin C-Peptide Lactic Acid Calcium Ionized Calcium Phosphorus Magnesium AST ALT Alkaline Phosphatase Lactate Dehydrogenase NT-Pro-B Natriuret Pep Total Protein Albumin Arterial Blood Glucose Arterial Blood Ionized Calcium Urine WBC (Auto) Vancomycin Trough 34.5 H Phenytoin Crossmatch 10/21/20 10/22/20 10/23/20 13:54 07:26 05:34 WBC 18.7 H 13.0 H RBC 3.64 L 3.50 L Hgb Hct 30.0 L MCV MCH MCHC 35 H RDW 17.7 H 17.6 H Plt Count 502 H 503 H Lymph % (Auto) Robertson % (Auto) Lymph # (Auto) Robertson # (Auto) Baso # (Auto) Seg Neutrophils % Seg Neuts % (Manual) Lymphocytes % (Manual) Monocytes % (Manual) Nucleated RBC % Seg Neutrophils # Seg Neutrophils # Man Lymphocytes # (Manual) Monocytes # (Manual) PT INR APTT Fibrinogen D-Dimer ABG pH POC ABG pCO2 POC ABG pO2 ABG pO2 ABG HCO3 ABG Base Excess ABG Hemoglobin ABG Oxyhemoglobin ABG Sodium ABG Potassium ABG Chloride ABG Glucose VBG pH Oxyhemoglobin Carboxyhemoglobin Sodium 136 L Potassium Chloride Carbon Dioxide BUN Creatinine Glucose 120 H POC Glucose Random Insulin C-Peptide Lactic Acid Calcium Ionized Calcium Phosphorus Magnesium AST ALT Alkaline Phosphatase Lactate Dehydrogenase NT-Pro-B Natriuret Pep Total Protein Albumin Arterial Blood Glucose Arterial Blood Ionized Calcium Urine WBC (Auto) Vancomycin Trough Phenytoin Crossmatch 10/23/20 10/26/20 10/27/20 05:34 10:30 07:53 WBC 13.6 H RBC 3.38 L Hgb 10.0 L Hct 28.8 L MCV MCH MCHC 35 H RDW 17.6 H Plt Count Lymph % (Auto) Robertson % (Auto) Lymph # (Auto) Robertson # (Auto) Baso # (Auto) Seg Neutrophils % Seg Neuts % (Manual) Lymphocytes % (Manual) Monocytes % (Manual) Nucleated RBC % Seg Neutrophils # Seg Neutrophils # Man Lymphocytes # (Manual) Monocytes # (Manual) PT INR APTT Fibrinogen D-Dimer ABG pH 7.459 H POC ABG pCO2 POC ABG pO2 ABG pO2 112.2 H ABG HCO3 ABG Base Excess ABG Hemoglobin ABG Oxyhemoglobin ABG Sodium ABG Potassium ABG Chloride ABG Glucose VBG pH Oxyhemoglobin Carboxyhemoglobin Sodium 135 L Potassium Chloride Carbon Dioxide BUN Creatinine Glucose 105 H POC Glucose Random Insulin C-Peptide Lactic Acid Calcium Ionized Calcium Phosphorus Magnesium AST ALT Alkaline Phosphatase Lactate Dehydrogenase NT-Pro-B Natriuret Pep Total Protein Albumin Arterial Blood Glucose Arterial Blood Ionized Calcium Urine WBC (Auto) Vancomycin Trough Phenytoin Crossmatch 10/27/20 10/27/20 10/28/20 07:53 11:31 05:19 WBC RBC Hgb Hct MCV MCH MCHC RDW Plt Count Lymph % (Auto) Robertson % (Auto) Lymph # (Auto) Robertson # (Auto) Baso # (Auto) Seg Neutrophils % Seg Neuts % (Manual) Lymphocytes % (Manual) Monocytes % (Manual) Nucleated RBC % Seg Neutrophils # Seg Neutrophils # Man Lymphocytes # (Manual) Monocytes # (Manual) PT INR APTT Fibrinogen D-Dimer ABG pH POC ABG pCO2 POC ABG pO2 ABG pO2 ABG HCO3 ABG Base Excess ABG Hemoglobin ABG Oxyhemoglobin ABG Sodium ABG Potassium ABG Chloride ABG Glucose VBG pH Oxyhemoglobin Carboxyhemoglobin Sodium Potassium Chloride Carbon Dioxide BUN 20 H Creatinine Glucose 112 H POC Glucose 113 H 112 H Random Insulin C-Peptide Lactic Acid Calcium Ionized Calcium Phosphorus Magnesium AST 83 H ALT Alkaline Phosphatase Lactate Dehydrogenase NT-Pro-B Natriuret Pep Total Protein Albumin 3.8 L Arterial Blood Glucose Arterial Blood Ionized Calcium Urine WBC (Auto) Vancomycin Trough Phenytoin Crossmatch 10/29/20 10/29/20 10/29/20 07:56 07:56 11:37 WBC 13.6 H RBC Hgb Hct MCV MCH MCHC RDW 17.0 H Plt Count Lymph % (Auto) Robertson % (Auto) Lymph # (Auto) Robertson # (Auto) Baso # (Auto) Seg Neutrophils % Seg Neuts % (Manual) 80.0 H Lymphocytes % (Manual) Monocytes % (Manual) Nucleated RBC % Seg Neutrophils # Seg Neutrophils # Man 10.9 H Lymphocytes # (Manual) Monocytes # (Manual) PT INR APTT Fibrinogen D-Dimer ABG pH POC ABG pCO2 POC ABG pO2 ABG pO2 ABG HCO3 ABG Base Excess ABG Hemoglobin ABG Oxyhemoglobin ABG Sodium ABG Potassium ABG Chloride ABG Glucose VBG pH Oxyhemoglobin Carboxyhemoglobin Sodium Potassium Chloride Carbon Dioxide BUN Creatinine Glucose POC Glucose 108 H Random Insulin C-Peptide Lactic Acid Calcium Ionized Calcium Phosphorus 4.70 H Magnesium AST ALT Alkaline Phosphatase Lactate Dehydrogenase NT-Pro-B Natriuret Pep Total Protein Albumin Arterial Blood Glucose Arterial Blood Ionized Calcium Urine WBC (Auto) Vancomycin Trough Phenytoin Crossmatch 10/29/20 10/30/20 10/30/20 13:32 12:11 17:19 WBC RBC Hgb Hct MCV MCH MCHC RDW Plt Count Lymph % (Auto) Robertson % (Auto) Lymph # (Auto) Robertson # (Auto) Baso # (Auto) Seg Neutrophils % Seg Neuts % (Manual) Lymphocytes % (Manual) Monocytes % (Manual) Nucleated RBC % Seg Neutrophils # Seg Neutrophils # Man Lymphocytes # (Manual) Monocytes # (Manual) PT INR APTT Fibrinogen D-Dimer ABG pH POC ABG pCO2 POC ABG pO2 ABG pO2 ABG HCO3 ABG Base Excess ABG Hemoglobin ABG Oxyhemoglobin ABG Sodium ABG Potassium ABG Chloride ABG Glucose VBG pH Oxyhemoglobin Carboxyhemoglobin Sodium Potassium Chloride Carbon Dioxide BUN Creatinine Glucose POC Glucose 108 H 106 H 107 H Random Insulin C-Peptide Lactic Acid Calcium Ionized Calcium Phosphorus Magnesium AST ALT Alkaline Phosphatase Lactate Dehydrogenase NT-Pro-B Natriuret Pep Total Protein Albumin Arterial Blood Glucose Arterial Blood Ionized Calcium Urine WBC (Auto) Vancomycin Trough Phenytoin Crossmatch 10/31/20 10/31/20 11/01/20 03:20 05:43 04:55 WBC RBC Hgb Hct MCV MCH MCHC RDW Plt Count Lymph % (Auto) Robertson % (Auto) Lymph # (Auto) Robertson # (Auto) Baso # (Auto) Seg Neutrophils % Seg Neuts % (Manual) Lymphocytes % (Manual) Monocytes % (Manual) Nucleated RBC % Seg Neutrophils # Seg Neutrophils # Man Lymphocytes # (Manual) Monocytes # (Manual) PT INR APTT Fibrinogen D-Dimer ABG pH POC ABG pCO2 POC ABG pO2 ABG pO2 ABG HCO3 ABG Base Excess ABG Hemoglobin ABG Oxyhemoglobin ABG Sodium ABG Potassium ABG Chloride ABG Glucose VBG pH Oxyhemoglobin Carboxyhemoglobin Sodium Potassium Chloride Carbon Dioxide BUN Creatinine Glucose POC Glucose 108 H 115 H 108 H Random Insulin C-Peptide Lactic Acid Calcium Ionized Calcium Phosphorus Magnesium AST ALT Alkaline Phosphatase Lactate Dehydrogenase NT-Pro-B Natriuret Pep Total Protein Albumin Arterial Blood Glucose Arterial Blood Ionized Calcium Urine WBC (Auto) Vancomycin Trough Phenytoin Crossmatch 11/01/20 11/01/20 11/01/20 05:01 16:47 21:36 WBC RBC Hgb Hct MCV MCH MCHC RDW Plt Count Lymph % (Auto) Robertson % (Auto) Lymph # (Auto) Robertson # (Auto) Baso # (Auto) Seg Neutrophils % Seg Neuts % (Manual) Lymphocytes % (Manual) Monocytes % (Manual) Nucleated RBC % Seg Neutrophils # Seg Neutrophils # Man Lymphocytes # (Manual) Monocytes # (Manual) PT INR APTT Fibrinogen D-Dimer ABG pH POC ABG pCO2 POC ABG pO2 ABG pO2 ABG HCO3 ABG Base Excess ABG Hemoglobin ABG Oxyhemoglobin ABG Sodium ABG Potassium ABG Chloride ABG Glucose VBG pH Oxyhemoglobin Carboxyhemoglobin Sodium 135 L Potassium Chloride Carbon Dioxide BUN Creatinine Glucose POC Glucose 116 H 112 H Random Insulin C-Peptide Lactic Acid Calcium Ionized Calcium Phosphorus Magnesium AST 93 H ALT Alkaline Phosphatase 132 H Lactate Dehydrogenase NT-Pro-B Natriuret Pep Total Protein Albumin 3.6 L Arterial Blood Glucose Arterial Blood Ionized Calcium Urine WBC (Auto) Vancomycin Trough Phenytoin Crossmatch 11/02/20 11/02/20 11/02/20 17:45 19:19 19:19 WBC RBC Hgb Hct MCV MCH MCHC RDW Plt Count Lymph % (Auto) Robertson % (Auto) Lymph # (Auto) Robertson # (Auto) Baso # (Auto) Seg Neutrophils % Seg Neuts % (Manual) Lymphocytes % (Manual) Monocytes % (Manual) Nucleated RBC % Seg Neutrophils # Seg Neutrophils # Man Lymphocytes # (Manual) Monocytes # (Manual) PT INR APTT Fibrinogen D-Dimer ABG pH POC ABG pCO2 POC ABG pO2 ABG pO2 ABG HCO3 ABG Base Excess ABG Hemoglobin ABG Oxyhemoglobin ABG Sodium ABG Potassium ABG Chloride ABG Glucose VBG pH Oxyhemoglobin Carboxyhemoglobin Sodium Potassium Chloride Carbon Dioxide BUN Creatinine Glucose POC Glucose 107 H Random Insulin 43.2 H C-Peptide 6.23 H Lactic Acid Calcium Ionized Calcium Phosphorus Magnesium AST ALT Alkaline Phosphatase Lactate Dehydrogenase NT-Pro-B Natriuret Pep Total Protein Albumin Arterial Blood Glucose Arterial Blood Ionized Calcium Urine WBC (Auto) Vancomycin Trough Phenytoin Crossmatch 11/03/20 11/04/20 11/04/20 21:49 05:00 05:00 WBC 13.8 H RBC Hgb Hct MCV MCH MCHC RDW 16.6 H Plt Count Lymph % (Auto) 11.8 L Robertson % (Auto) 11.0 H Lymph # (Auto) Robertson # (Auto) 1.5 H Baso # (Auto) Seg Neutrophils % 75.1 H Seg Neuts % (Manual) Lymphocytes % (Manual) Monocytes % (Manual) Nucleated RBC % Seg Neutrophils # 10.4 H Seg Neutrophils # Man Lymphocytes # (Manual) Monocytes # (Manual) PT INR APTT Fibrinogen D-Dimer ABG pH POC ABG pCO2 POC ABG pO2 ABG pO2 ABG HCO3 ABG Base Excess ABG Hemoglobin ABG Oxyhemoglobin ABG Sodium ABG Potassium ABG Chloride ABG Glucose VBG pH Oxyhemoglobin Carboxyhemoglobin Sodium Potassium Chloride Carbon Dioxide BUN Creatinine Glucose 112 H POC Glucose 109 H Random Insulin C-Peptide Lactic Acid Calcium Ionized Calcium Phosphorus Magnesium AST 90 H ALT Alkaline Phosphatase Lactate Dehydrogenase NT-Pro-B Natriuret Pep Total Protein Albumin 3.8 L Arterial Blood Glucose Arterial Blood Ionized Calcium Urine WBC (Auto) Vancomycin Trough Phenytoin Crossmatch 11/04/20 11/04/20 11/05/20 06:03 23:47 07:47 WBC RBC Hgb Hct MCV MCH MCHC RDW Plt Count Lymph % (Auto) Robertson % (Auto) Lymph # (Auto) Robertson # (Auto) Baso # (Auto) Seg Neutrophils % Seg Neuts % (Manual) Lymphocytes % (Manual) Monocytes % (Manual) Nucleated RBC % Seg Neutrophils # Seg Neutrophils # Man Lymphocytes # (Manual) Monocytes # (Manual) PT INR APTT Fibrinogen D-Dimer ABG pH POC ABG pCO2 POC ABG pO2 ABG pO2 ABG HCO3 ABG Base Excess ABG Hemoglobin ABG Oxyhemoglobin ABG Sodium ABG Potassium ABG Chloride ABG Glucose VBG pH Oxyhemoglobin Carboxyhemoglobin Sodium Potassium Chloride Carbon Dioxide BUN Creatinine Glucose POC Glucose 107 H 121 H 111 H Random Insulin C-Peptide Lactic Acid Calcium Ionized Calcium Phosphorus Magnesium AST ALT Alkaline Phosphatase Lactate Dehydrogenase NT-Pro-B Natriuret Pep Total Protein Albumin Arterial Blood Glucose Arterial Blood Ionized Calcium Urine WBC (Auto) Vancomycin Trough Phenytoin Crossmatch 11/05/20 11/06/20 11/06/20 23:24 17:04 23:36 WBC RBC Hgb Hct MCV MCH MCHC RDW Plt Count Lymph % (Auto) Robertson % (Auto) Lymph # (Auto) Robertson # (Auto) Baso # (Auto) Seg Neutrophils % Seg Neuts % (Manual) Lymphocytes % (Manual) Monocytes % (Manual) Nucleated RBC % Seg Neutrophils # Seg Neutrophils # Man Lymphocytes # (Manual) Monocytes # (Manual) PT INR APTT Fibrinogen D-Dimer ABG pH POC ABG pCO2 POC ABG pO2 ABG pO2 ABG HCO3 ABG Base Excess ABG Hemoglobin ABG Oxyhemoglobin ABG Sodium ABG Potassium ABG Chloride ABG Glucose VBG pH Oxyhemoglobin Carboxyhemoglobin Sodium Potassium Chloride Carbon Dioxide BUN Creatinine Glucose POC Glucose 111 H 112 H 108 H Random Insulin C-Peptide Lactic Acid Calcium Ionized Calcium Phosphorus Magnesium AST ALT Alkaline Phosphatase Lactate Dehydrogenase NT-Pro-B Natriuret Pep Total Protein Albumin Arterial Blood Glucose Arterial Blood Ionized Calcium Urine WBC (Auto) Vancomycin Trough Phenytoin Crossmatch 11/07/20 11/07/20 11/07/20 03:33 04:44 04:44 WBC RBC Hgb Hct MCV MCH MCHC RDW 16.6 H Plt Count Lymph % (Auto) Robertson % (Auto) 13.1 H Lymph # (Auto) Robertson # (Auto) 1.3 H Baso # (Auto) Seg Neutrophils % Seg Neuts % (Manual) Lymphocytes % (Manual) Monocytes % (Manual) Nucleated RBC % Seg Neutrophils # Seg Neutrophils # Man Lymphocytes # (Manual) Monocytes # (Manual) PT INR APTT Fibrinogen D-Dimer ABG pH POC ABG pCO2 POC ABG pO2 ABG pO2 ABG HCO3 ABG Base Excess ABG Hemoglobin ABG Oxyhemoglobin ABG Sodium ABG Potassium ABG Chloride ABG Glucose VBG pH Oxyhemoglobin Carboxyhemoglobin Sodium Potassium Chloride Carbon Dioxide BUN Creatinine Glucose 103 H POC Glucose 109 H Random Insulin C-Peptide Lactic Acid Calcium Ionized Calcium Phosphorus 5.30 H Magnesium AST ALT Alkaline Phosphatase Lactate Dehydrogenase NT-Pro-B Natriuret Pep Total Protein Albumin Arterial Blood Glucose Arterial Blood Ionized Calcium Urine WBC (Auto) Vancomycin Trough Phenytoin Crossmatch 11/07/20 11/07/20 11/08/20 15:58 23:46 07:30 WBC RBC Hgb Hct MCV MCH MCHC RDW Plt Count Lymph % (Auto) Robertson % (Auto) Lymph # (Auto) Robertson # (Auto) Baso # (Auto) Seg Neutrophils % Seg Neuts % (Manual) Lymphocytes % (Manual) Monocytes % (Manual) Nucleated RBC % Seg Neutrophils # Seg Neutrophils # Man Lymphocytes # (Manual) Monocytes # (Manual) PT INR APTT Fibrinogen D-Dimer ABG pH POC ABG pCO2 POC ABG pO2 ABG pO2 ABG HCO3 ABG Base Excess ABG Hemoglobin ABG Oxyhemoglobin ABG Sodium ABG Potassium ABG Chloride ABG Glucose VBG pH Oxyhemoglobin Carboxyhemoglobin Sodium Potassium Chloride Carbon Dioxide BUN Creatinine Glucose POC Glucose 108 H 106 H 109 H Random Insulin C-Peptide Lactic Acid Calcium Ionized Calcium Phosphorus Magnesium AST ALT Alkaline Phosphatase Lactate Dehydrogenase NT-Pro-B Natriuret Pep Total Protein Albumin Arterial Blood Glucose Arterial Blood Ionized Calcium Urine WBC (Auto) Vancomycin Trough Phenytoin Crossmatch 11/08/20 11:48 WBC RBC Hgb Hct MCV MCH MCHC RDW Plt Count Lymph % (Auto) Robertson % (Auto) Lymph # (Auto) Robertson # (Auto) Baso # (Auto) Seg Neutrophils % Seg Neuts % (Manual) Lymphocytes % (Manual) Monocytes % (Manual) Nucleated RBC % Seg Neutrophils # Seg Neutrophils # Man Lymphocytes # (Manual) Monocytes # (Manual) PT INR APTT Fibrinogen D-Dimer ABG pH POC ABG pCO2 POC ABG pO2 ABG pO2 ABG HCO3 ABG Base Excess ABG Hemoglobin ABG Oxyhemoglobin ABG Sodium ABG Potassium ABG Chloride ABG Glucose VBG pH Oxyhemoglobin Carboxyhemoglobin Sodium Potassium Chloride Carbon Dioxide BUN Creatinine Glucose POC Glucose 110 H Random Insulin C-Peptide Lactic Acid Calcium Ionized Calcium Phosphorus Magnesium AST ALT Alkaline Phosphatase Lactate Dehydrogenase NT-Pro-B Natriuret Pep Total Protein Albumin Arterial Blood Glucose Arterial Blood Ionized Calcium Urine WBC (Auto) Vancomycin Trough Phenytoin Crossmatch Chest x-ray: report reviewed, image reviewed
[2020-11-09] MEDS: DEXTROSE 10% IN WATER 1,000 ML IV SCH ×2 (02:24→16:06)
[2020-11-09] MEDS: hydrALAZINE 25 MG TAB PO SCH ×3 (05:46→21:00)
--- NOTE | 2020-11-09 08:29 | Progress Note ---
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 Patient remains unr esponsive. Patient currently sleeping comfortably. Patient remains in ICU. Has denied LTACH placement at this time. Improvement in upper extremity edema. Objective - Vital Signs Latest vital signs: Vital Signs Temp Pulse Resp BP Pulse Ox Pulse Ox 11/09/20 08:00 99.4 F 11/09/20 07:30 106 H 31 H 110/60 100 11/09/20 07:01 104 H 26 H 102/41 100 11/09/20 06:30 102 H 27 H 112/64 100 11/09/20 06:00 89 20 102/47 100 11/09/20 05:30 108 H 25 H 128/62 100 11/09/20 05:01 104 H 22 131/44 100 11/09/20 04:30 82 15 102/52 100 11/09/20 04:00 99.2 F 78 22 108/50 100 11/09/20 03:30 96 H 14 124/44 99 11/09/20 03:00 105 H 13 113/50 100 11/09/20 02:30 110 H 18 121/60 100 11/09/20 02:00 100 H 31 H 96/48 100 11/09/20 01:30 94 H 17 108/51 100 11/09/20 01:00 90 29 H 106/45 100 11/09/20 00:30 90 20 119/54 100 11/09/20 00:29 100 11/09/20 00:00 98.8 F 93 H 49 H 117/46 100 11/08/20 23:30 108 H 13 110/45 100 11/08/20 23:00 107 H 16 112/43 100 11/08/20 22:30 101 H 25 H 110/47 100 11/08/20 22:00 108 H 11 L 114/53 100 11/08/20 21:30 109 H 13 112/49 100 11/08/20 21:04 110 H 97/49 11/08/20 21:00 110 H 13 97/49 100 11/08/20 20:30 96 H 13 108/59 100 11/08/20 20:00 100.2 F H 107 H 14 107/51 100 11/08/20 19:30 88 15 113/51 100 11/08/20 19:16 100 11/08/20 19:00 102 H 34 H 128/46 100 11/08/20 18:41 93 H 22 115/52 100 11/08/20 18:31 100 H 27 H 115/52 100 11/08/20 18:00 90 20 115/52 100 11/08/20 17:30 102 H 37 H 131/71 100 11/08/20 17:00 104 H 28 H 127/67 100 11/08/20 16:30 84 23 112/59 100 11/08/20 16:00 98.6 F 92 H 31 H 108/54 100 11/08/20 15:30 90 16 111/61 100 11/08/20 15:00 102 H 38 H 125/50 100 11/08/20 14:30 102 H 25 H 104/58 100 11/08/20 14:06 106/56 11/08/20 14:00 85 21 106/56 100 11/08/20 13:30 103 H 31 H 126/70 100 11/08/20 13:00 103 H 29 H 119/53 99 11/08/20 12:30 86 18 105/53 100 11/08/20 12:00 99.1 F 88 20 98/50 100 11/08/20 11:30 98 H 20 101/57 100 11/08/20 11:00 94 H 25 H 107/62 100 11/08/20 10:31 114 H 26 H 94/72 100 11/08/20 10:00 108 H 24 122/56 100 11/08/20 09:50 111 H 11/08/20 09:30 102 H 24 126/52 100 11/08/20 09:02 100 11/08/20 09:00 100 H 22 116/48 100 11/08/20 08:30 99 H 26 H 109/43 100 Intake and Output 11/08/20 11/09/20 11/09/20 22:59 06:59 14:59 Intake Total 680 1680 Output Total 350 800 Balance 330 880 Intake: IV 1000 D10w 1,000 ml @ 75 mls/hr 1000 IV DIRECT ERINN Rx#: [id number] Intake, Free Water 200 200 Tube Feeding 480 480 Output: Urine 350 800 Indwelling Catheter 350 Other: Total, Intake Amount 60 60 Total, Output Amount 350 Voiding Method Indwelling Catheter Indwelling Catheter # Bowel Movements 1 Weight 108.2 kg - Labs Labs: Abnormal lab results 11/08/20 11/08/20 Range/Units 11:48 23:32 POC Glucose 110 H 116 H (70-105) mg/dL
--- NOTE | 2020-11-09 08:30 | Progress Note ---
Assessment and Plan Critical care statement The high probability of a clinically significant, sudden or life threatening deterioration of the [MULTIPLE ORGAN] system(s) required my full and direct attention, intervention and personal management. The aggregate critical care time was [33] minutes. This time is in addition to time spent performing reported procedures but includes the following: [X] Data Review and interpretation [X] Patient assessment and monitoring of vital signs [X] Documentation [X] Medication orders and management Assessment and plan --Acute hypoxic respiratory failure: Tracheostomy on T-piece , 5 L oxygen, saturating 100% Nebulizers, continue oxygen titrate O2 sats to more than 90% Pulmonary critical following --Sepsis; received antibiotics Continue to monitor off antibiotics ID following --Cardiac arrest; 10/07/2020 ,status post CPR --COVID-19 test negative; 10/08/2020 --C. difficile colitis test; positive; 10/16/2020 --Acute metabolic encephalopathy --Acute hypoxic brain injury; Supportive care, closely monitor --Acute kidney injury; vasomotor nephropathy Resolved, renal function within normal limits, closely monitor --Shock; monitor of pressors Blood pressures reasonable level --DIC; sepsis, septic shock, resolved --History of preeclampsia; / hemorrhage Status post hysterectomy --History of C. difficile colitis; completed oral vancomycin --DVT/SVT and right upper extremity Very poor prognosis, Consults recommendations noted and appreciated We will closely monitor the patient and adjust management as needed Plan of care reviewed with the patient's nurse. Subjective Date of service: 11/08/20 Principal diagnosis: Eclampsia/HELLP Syndrome, ADOLPH, DIC; s/p , s/p supracervical hyst Interval history: 30 y/o female patient with Eclampsia/help syndrome, s/p emergent section with DIC, hemorrhage, supracervical abdominal hysterectomy, acute respiratory failure , tracheostomy on T-piece with morbid obesity, s/p cardiac arrest 12/08/2019 status post CPR per ACLS, acute hypoxic brain injury Acute kidney injury improved, severe shock requiring pressors, DIC septic shock improved, history of C. difficile colitis on vancomycin. Tracheostomy on T-piece, continues to require 5 L of oxygen. Brief history; 30 year old -Faroese female CHE 10/25/20 at 36w5d who presents with seizures in triage on 10/02/20. Pt was not able to provide history but per pt's , she presented to the hospital to return a 24 hour urine specimen for analysis. She then suddenly reported that she did not feel good. She was taken to labor and delivery and shortly after arrival, she began seizing. During this time, a code met was called because the patient became hypoxic. She was then noted to be without a pulse. Chest compressions were started immediately, and the patient was emergently taken to the operating room for delivery of the fetus. Off note, This patient has had care at [facility] with comanagement by [facility] since 11 wks complicated by ADHD, morbid obesity, generalized anxiety disorder, panic attacks, chronic narcotic use, fibromyalgia, GERD, Irritable Bowel Syndrome, Migraines, h/o endometrial ablation and ovarian vein embolization, genital herpes, insomnia, LGA fetus, nausea and vomiting, polyhydramnios, quad screen positive for Down's Syndrome, and previous x 3. She is GBS negative. , Patient tracheostomy on ventilatory support, unable to wean, continue supportive care poor prognosis 11:30: Pt brought to L&D triage for evaluation of possible labor. Pt accompanied by her spouse. Pt spouse poor historian; unable to obtain history- allergies at this time. Pt taken from registration to triage area via WC. Pt unresponsive, actively seizing with snorous respirations. bellows filler, Kassy, called and requesting assistance. 11:35: Multiple staff at bedside. Pt 02 sat 67% on nonrebreather, unable to read BP . Yifan Theodore CRNA, at bedside for intubation and assistance with IV insertion. INT attempt by multiple RNs unsuccessful at this time. 11:42: Pt being bagged by KORIN, 02% 79%. No pulse palpated, compressions on at this time; bharati young called and Dr. Newberry preparing OR for emergent c/s. 11:44: Continued compressions on stretcher while transporting pt to OR 1. Pt being bagged with jaw thrust manuever in place by KORIN Stringer student. 11:45: Arrival to OR 1. Dr. Newberry and Dr. Portillo present for emergent c/s. Code team arrived for continued care. patient revived and c/s done Patient has been bleeding from C/s site followed by supracervical hysterectomy for severe bleeding, Patient transfused multiple units of PRBC, Patient in DIC. Patient transferred to the ICU Hospital course; 10/03. Patient seen and examined at bedside this morning. Patient is nonresponsive and mechanically ventilated. On pressors. Labs reviewed-has leukocytosis, anemia, thrombocytopenia, ADOLPH and lactic acidosis. Started on IV antibiotics to cover possible sepsis secondary to DIC. Hematology oncology recommendations appreciated-needs additional cryoprecipitate and FFP. Monitor D-dimer, fibrinogen and frequent labs. Nephrology consulted for lactic acidosis and ADOLPH. 10/04. Remains mechanically ventilated. Kevin antibiotics. Labs shows improved acidosis - lactic acid 3.5. Hb drop noted. Getting transfused 2 units PRBCs. Platelet count is ~40k. Continue to monitor labs closely. Critical care team on board. 10/05; xray reviewed, concerning for multifocal infilrate, likely underlying Pneumonia, will add ID consult to assist with management of this critically ill patient, start tube feed, closely monitor renal system 10/06: Resumed care, remains on mechanical ventilation. No active bleeding, H&H stable. Continue to monitor CBC and BMP. Continue IV antibiotic for underlying pneumonia. Follow critical care and ID recommendation. 10/07: Remains on mechanical ventilation. No active bleeding, H&H stable. Critical care following, wean off ventilation as tolerated. 10/08: Patient had another cardiac arrest last night. Remains on mechanical ventilation, update family. Continue supportive care -poor prognosis 10/09: Called patient mother and discussed about patient care and management. Answered all question to best of my knowledge and family satisfaction. Patient remains on mechanical ventilation, cardiac arrest x2 so far. Critically sick, poor prognosis 10/10: remains on mechanical ventilation. h/h stable, no active bleeding. monitor CBC/BMP 10/11: WBC trended up with diarrhea, started on vancomycin po. remains on MV, off pressor, tolerating TF 10/12: remains on MV, off pressor, tolerating TF. called family for update but unable to reach, could not leave message as it was full. cont supportive care, wean off vent as tolerated. 10/13/2020; patient is on mechanical ventilation, tolerating tube feeding. Patient has labored breathing. Neuro was consulted and recommend MRI. Patient is on Precedex. Rectal tube in place. 10/14/2020; patient is on mechanical ventilation, Precedex. Patient had fever and blood culture ordered. Patient is on IV vancomycin per ID recommendation. Neuro consulted and recommend MRI. Continue to monitor. Prognosis is guarded. 10/15/2020; patient is on mechanical ventilation, Precedex. Patient had fever and blood culture ordered. Patient is on IV vancomycin per ID recommendation. Neuro consulted and recommend MRI. Continue to monitor. Prognosis is guarded. 10/17: Remains with C.DIFF and Bactermia, Poor prognosis. No purposeful movement. MRI and EEG discussed with Intensvisit, Continue aggressive BP control. 10/18: Blood pressure better controlled MRI done 10/15 shows mild improvement in edema. We will continue to monitor mother was at bedside yesterday. Nursing documentation trach and PEG discussed with the mother including goals of care. She is still in denial about the gravity of her daughters her condition which is understandable considering her age. Continue aggressive management at this time. Await for bacteremia to clear by ID before placing PICC line. 10/19: Patient for possible PEG and Trach, ID following, repeat cultures remain negative. Poor prognosis 10/20: Pt noted to DVT and SVT in the RUE, Vascular consult and will also obtain Hematology for possible considering changing in Anticoagulation. CONTINUE TO MONITOR H/H and PLT. Family updated by [employer]. Heparin gtt started. Will check CBC and BMP 10/21: Continue supporive care, Diarrhea now resolving, But still with persistent Fever, May need repeat CT/AP per ID, still with profused Encephalopathy 10/22: Continue supportive care, weaning, awaiting repeat Imaging. FOLLOW Fever curve. Enoxparin restarted 10/23: Continue supportive care, wean as tolerated. 10/24; Started on CPAP trial, discussed with pulmonary, still with diarrhea. 10/25: Patients seen and examined, no clinical changes, still with diarrhea. ?meaningful recovery. 10/26: Clinically unchanged, continue CPAP trial, Will discuss with Neurology about re-evaluation, ?Need for repeat CT head. ?PRESS considering initial elevated BP, now stable. 10/27; tracheostomy on vent, weaning trials, vital signs noted, poor prognosis 10/28; unable to wean, tracheostomy on vent. Sepsis. Continue current management. Consults and recommendations noted and appreciated 10/30/2020;Patient on T-piece 5 L of oxygen not in acute distress, noncommunicative 11/02/2020; patient on T-piece 5 L of oxygen 11/03/2020; patient's fever slightly improved low-grade, continue current management, remains on T-piece with 5 L of oxygen 11/04/2020; T-max last 24 hours 100.3 F, new cultures negative to date, monitor off antibiotics Patient is off Levophed, blood pressures reasonable level, tracheostomy on T- piece 3 to 5 L nasal cannula oxygen 11/05/2020; tracheostomy on T-piece patient remains on 5 L of nasal cannula oxygen, unresponsive severe hypoxic brain injury I called patient's mother Ms. Pamela Bassett as well as patient's spouse Mr. Danilo Dimas at [phone] unable to reach them Left voicemail on Ms. Pamela Bassettz phone and encouraged him to call back 11/06/2020; I tried to call again today Ms. Pamela Bassett to discuss patient's condition and treatment plan and update consultants recommendations and patient's prognosis., unable to reach her 11/07/20 Will try LTAC/Hospice 11/08/20 Same condition Objective - Exam Narrative Exam: Patient intubated - Constitutional Vitals: Vital Signs - 12hr 11/08/20 11/08/20 11/08/20 20:30 21:00 21:04 Temperature Pulse Rate 96 H 110 H 110 H Respiratory 13 13 Rate Blood Pressure 108/59 97/49 97/49 O2 Sat by Pulse 100 100 Oximetry O2 Sat by Pulse Oximetry [ Assessment] 11/08/20 11/08/20 11/08/20 21:30 22:00 22:30 Temperature Pulse Rate 109 H 108 H 101 H Respiratory 13 11 L 25 H Rate Blood Pressure 112/49 114/53 110/47 O2 Sat by Pulse 100 100 100 Oximetry O2 Sat by Pulse Oximetry [ Assessment] 11/08/20 11/08/20 11/09/20 23:00 23:30 00:00 Temperature 98.8 F Pulse Rate 107 H 108 H 93 H Respiratory 16 13 49 H Rate Blood Pressure 112/43 110/45 117/46 O2 Sat by Pulse 100 100 100 Oximetry O2 Sat by Pulse Oximetry [ Assessment] 11/09/20 11/09/20 11/09/20 00:29 00:30 01:00 Temperature Pulse Rate 90 90 Respiratory 20 29 H Rate Blood Pressure 119/54 106/45 O2 Sat by Pulse 100 100 Oximetry O2 Sat by Pulse 100 Oximetry [ Assessment] 11/09/20 11/09/20 11/09/20 01:30 02:00 02:30 Temperature Pulse Rate 94 H 100 H 110 H Respiratory 17 31 H 18 Rate Blood Pressure 108/51 96/48 121/60 O2 Sat by Pulse 100 100 100 Oximetry O2 Sat by Pulse Oximetry [ Assessment] 11/09/20 11/09/20 11/09/20 03:00 03:30 04:00 Temperature 99.2 F Pulse Rate 105 H 96 H 78 Respiratory 13 14 22 Rate Blood Pressure 113/50 124/44 108/50 O2 Sat by Pulse 100 99 100 Oximetry O2 Sat by Pulse Oximetry [ Assessment] 11/09/20 11/09/20 11/09/20 04:30 05:01 05:30 Temperature Pulse Rate 82 104 H 108 H Respiratory 15 22 25 H Rate Blood Pressure 102/52 131/44 128/62 O2 Sat by Pulse 100 100 100 Oximetry O2 Sat by Pulse Oximetry [ Assessment] 11/09/20 11/09/20 11/09/20 06:00 06:30 07:01 Temperature Pulse Rate 89 102 H 104 H Respiratory 20 27 H 26 H Rate Blood Pressure 102/47 112/64 102/41 O2 Sat by Pulse 100 100 100 Oximetry O2 Sat by Pulse Oximetry [ Assessment] 11/09/20 11/09/20 07:30 08:00 Temperature 99.4 F Pulse Rate 106 H Respiratory 31 H Rate Blood Pressure 110/60 O2 Sat by Pulse 100 Oximetry O2 Sat by Pulse Oximetry [ Assessment] General appearance: Present: no acute distress, well-nourished - EENT Eyes: PERRL, EOM intact ENT: hearing intact, clear oral mucosa Ears: bilateral: normal - Neck Neck: supple, normal ROM - Respiratory Respiratory effort: normal Respiratory: bilateral: CTA - Breasts Breasts: normal - Cardiovascular Heart rate: 88 Rhythm: regular Heart Sounds: Present: S1 & S2. Absent: gallop, rub Extremities: pulses intact, No edema, normal color, Full ROM - Gastrointestinal General gastrointestinal: Present: soft, non-tender, non-distended, normal bowel sounds - Genitourinary Female genitourinary: normal - Integumentary Integumentary: clear, warm, dry - Musculoskeletal Musculoskeletal: 1, strength equal bilaterally - Psychiatric Psychiatric: other (Unresponsive) - Labs CBC & Chem 7: 11/07/20 04:44 11/07/20 04:44 Labs: Abnormal lab results 11/08/20 11/08/20 Range/Units 11:48 23:32 POC Glucose 110 H 116 H (70-105) mg/dL HEART Score - HEART Score Age: < 45 Risk factors: 1-2 risk factors - Critical Actions Critical Actions: >7 pts:50-65% risk of adverse cardiac event. Early invasive measures
[2020-11-09] MEDS: SODIUM BICARBONATE 650 MG TAB PO SCH ×3 (08:57→20:58)
[2020-11-09] MEDS: TOPIRAMATE TAB 25 MG TAB PO SCH ×2 (09:00→21:00)
[2020-11-09] MEDS: FAMOTIDINE 20 MG TAB PO SCH ×2 (09:00→21:00)
[2020-11-09] MEDS: FUROSEMIDE 40 MG TAB PO SCH (09:00)
[2020-11-09] MEDS: ENOXAPARIN 40 MG/0.4 ML INJ SUB-Q SCH (09:00)
--- NOTE | 2020-11-09 10:42 | Progress Note ---
Assessment and Plan 30 y/o female with Eclampsia, s/p emergent section with DIC, acute respiratory failure and worsening renal function. 11/09/20: Follow up Proinsulin levels. No endocrine consult available here, but will do more research to see if we can find out why she remains D10 dependent. Pulm status is stable. Continue T-piece. Not a candidate for floor given D10 requirement. 11/06/20: No new recs. Will continue to check for outside lab results over the weekend. 11/05/20: Awaiting outside labs to work up hypoglycemia. Will add some PRN albuterol nebs to see if this will help to thin out her secretions. 11/04/20: No changes. No new recs. Awaiting send out labs to help figure out hypoglycemia. 11/03/20: Continue D10. Await send out labs. 11/02/20: Called lab today to ask how to order these send out labs. Continue D10 along with feeds for now. Stopped robinol and no further reports of increased thickness of secretions. given D10 requirement, do not feel comfortable with transition to the floor. 11/01/20: Will stop Robinol as this may be making secretions to thick. Huge risk for mucous plugging given mental state. Continue D10 and waiting on labs from yesterday. LFT's repeated and AST elevated along with alk phos. Both of these were elevated on admission, then resolved and now are elevated again. In current clinical state, not sure what to make of those numbers. They do not help with trying to figure out hypoglycemia and persistent need for D10. Continue IMCU care. 10/31/20: Will order midline for IV team vs peripheral IV's (multiple). Needs access for d10 as we have not been able to figure out why she is so hypoglyemic. Will measure serum insulin levels and C-peptide levels, as well proinsulin. All of these labs are sendouts so will have to call down to ask how to order as they are not coming up in [facility]. Given her requirement for supplemental IV sugar, not a candidate for floor transfer. 10/30/20: Continue step down monitoring for now. If does well the next 24-36 hours, then will consider floor transfer. Really needs to continue PT with PROM. Will speak with CM about options for here now that critical needs are becoming minimal. 10/29/20: Off vent now for 24 hours. Tolerating T-Piece. Will transition to step down for a few days. If does well there, consider transition to floor. Continue PT. Guarded prognosis. 10/28/20: Daily T-piece trials for as long as tolerated. Attempt to push further daily. OT does not do passive range of motion. Per PT note will do passive range of motion with patient. Guarded prognosis. Hoping to wean off vent and transition to floor. 10/27/20: Continue daily T-piece trials for as long as tolerated. Ok with resting on either PSV or full rate if needed at night but need to strengthen her respiratory muscles. PT/OT if possible. Will transition to step down prior to going to floor to insure stability. 10/26/20: Will obtain ABG today. If good, will attempt on T-piece later. Continue PT/OT. Will speak with CM about possibility of LTACH or nursing facility that can take trached patients. 10/23/20: Daily PSV trials for as long as patient will tolerate. Needs PT/OT consult for passive range of motion. 10/22/20: Will start prolonged PSV trials. Attempt to wean from vent and then transition to floor to see if mental status improves. Continue tube feeds. 10/21/20: Trach and peg placed. No sedation. Restart Lovenox for Upper Ext DVT. Restart feeds when surgery states ok to use PEG. C. Diff treatment per ID. Guarded prognosis. Will be a long term acute care registered nurse wean. Hopeful to wean off vent at least and then can transfer to floor. 10/20/20: NPO after midnight. DVT study just read from 10/14 on yesterday showin g upper ext DVT. Started on Lovenox but need to hold therapy until after surgery. could be source of fevers. No sedation. 10/19/20: Stable BP. Will meet/talk with family at noon over the phone with myself and case management. Need to discuss goals of care and what next steps would be. Patient would need trach and peg and transfer to LTACH if family ok with this. Follow up speciation of GNR's in blood. Has been on Cefepime. Continues therapy for C. Diff. Guarded prognosis. Continue daily PSV trials but not ready for extubation secondary to mental state. 10/18/20: Blood pressure is much better with the addition of meds started on yesterday. Need to have family meeting jesica in regards to goals of care. Continue Daily PSV trials but not ready for extubation. Continue therapy for C. Diff per ID. 10/17/20: CT scan was of no help in regards to fevers. C. Diff is positive and BP now is more uncontrolled despite increasing labetalol. Today will increase to 300 TID. Added TID Hydralazine and added PO lasix given her mild pulmonary htn seen on echo. Spoke with mother over the phone and she requests to come see the patient. Given current circumstances, will allow her to come briefly today and then will speak with her at the bedside. No neurology is available at the time and suspect these will be the majority of her questions. Tolerated PSV briefly yesterday and will do again today but not for extended periods as given her mental state she is not a candidate for extubation. I will also ask the mother about halfway care (trach and peg) when she comes today. Overall prognosis is guarded to poor. If oral meds cannot regulate blood pressure, may need Cardene drip. Continue therapy for C. Diff per ID. Subjective Date of service: 11/09/20 Principal diagnosis: Eclampsia/HELLP Syndrome, ADOLPH, DIC; s/p , s/p supracervical hyst Interval history: Insulin and C-Peptide are both elevated. Proinsulin is not back yet. Patient is still on D10 Objective Vital Signs - 12hr 11/08/20 11/08/20 11/09/20 23:00 23:30 00:00 Temperature 98.8 F Pulse Rate 107 H 108 H 93 H Respiratory 16 13 49 H Rate Blood Pressure 112/43 110/45 117/46 O2 Sat by Pulse 100 100 100 Oximetry O2 Sat by Pulse Oximetry [ Assessment] 11/09/20 11/09/20 11/09/20 00:29 00:30 01:00 Temperature Pulse Rate 90 90 Respiratory 20 29 H Rate Blood Pressure 119/54 106/45 O2 Sat by Pulse 100 100 Oximetry O2 Sat by Pulse 100 Oximetry [ Assessment] 11/09/20 11/09/20 11/09/20 01:30 02:00 02:30 Temperature Pulse Rate 94 H 100 H 110 H Respiratory 17 31 H 18 Rate Blood Pressure 108/51 96/48 121/60 O2 Sat by Pulse 100 100 100 Oximetry O2 Sat by Pulse Oximetry [ Assessment] 11/09/20 11/09/20 11/09/20 03:00 03:30 04:00 Temperature 99.2 F Pulse Rate 105 H 96 H 78 Respiratory 13 14 22 Rate Blood Pressure 113/50 124/44 108/50 O2 Sat by Pulse 100 99 100 Oximetry O2 Sat by Pulse Oximetry [ Assessment] 11/09/20 11/09/20 11/09/20 04:30 05:01 05:30 Temperature Pulse Rate 82 104 H 108 H Respiratory 15 22 25 H Rate Blood Pressure 102/52 131/44 128/62 O2 Sat by Pulse 100 100 100 Oximetry O2 Sat by Pulse Oximetry [ Assessment] 11/09/20 11/09/20 11/09/20 06:00 06:30 07:01 Temperature Pulse Rate 89 102 H 104 H Respiratory 20 27 H 26 H Rate Blood Pressure 102/47 112/64 102/41 O2 Sat by Pulse 100 100 100 Oximetry O2 Sat by Pulse Oximetry [ Assessment] 11/09/20 11/09/20 11/09/20 07:30 08:00 08:59 Temperature 99.4 F Pulse Rate 106 H 104 H Respiratory 31 H Rate Blood Pressure 110/60 118/46 O2 Sat by Pulse 100 100 Oximetry O2 Sat by Pulse Oximetry [ Assessment] 11/09/20 09:00 Temperature Pulse Rate Respiratory Rate Blood Pressure O2 Sat by Pulse Oximetry O2 Sat by Pulse 100 Oximetry [ Assessment] Constitutional: comatose, other (s/p trach) Eyes: non-icteric ENT: oropharynx moist Neck: other (large in cirumference) Effort: normal Ascultation: Bilateral: clear, diminished breath sounds, rhonchi, other (coarse BS bilaterally) Percussion: Bilateral: not dull Cardiovascular: regular rate and rhythm, other (no mrg) Gastrointestinal: normoactive bowel sounds, soft Extremities: no cyanosis, pink and warm Neurologic: other (unresponsive, not following commands, not tracking) Psychiatric: other (unable to assess) CBC and BMP: 11/07/20 04:44 11/07/20 04:44 ABG, PT/INR, D-dimer: ABG ABG pH 7.459 pH Units (7.350-7.450) H 10/26/20 10:30 POC ABG pCO2 20.7 mmHg (32.0-48.0) L 10/13/20 07:18 ABG pCO2 32.4 mm Hg 10/26/20 10:30 POC ABG pO2 137.9 mmHg (83-108) H 10/13/20 07:18 ABG pO2 112.2 mm Hg (80.0-90.0) H 10/26/20 10:30 POC ABG HCO3 14.8 10/13/20 07:18 ABG O2 Saturation 98.2 % (95.0-99.0) 10/26/20 10:30 PT/INR, D-dimer PT 13.6 Sec. (12.2-14.9) 10/21/20 13:54 INR 1.06 (0.87-1.13) 10/21/20 13:54 D-Dimer > 04073 ng/mlDDU (0-234) H 10/04/20 10:00 Abnormal lab findings: Abnormal Labs 10/02/20 10/02/20 10/02/20 12:03 12:18 12:18 WBC 14.9 H RBC Hgb 9.1 L Hct MCV MCH 22 L MCHC 28 L RDW 17.6 H Plt Count 102 L Lymph % (Auto) [place] % (Auto) Lymph # (Auto) [place] # (Auto) Baso # (Auto) Seg Neutrophils % Seg Neuts % (Manual) 36.0 L Lymphocytes % (Manual) 49.0 H Monocytes % (Manual) Nucleated RBC % 6.0 H Seg Neutrophils # Seg Neutrophils # Man Lymphocytes # (Manual) 7.3 H Monocytes # (Manual) PT INR APTT Fibrinogen D-Dimer ABG pH POC ABG pCO2 POC ABG pO2 ABG pO2 ABG HCO3 ABG Base Excess ABG Hemoglobin ABG Oxyhemoglobin ABG Sodium ABG Potassium ABG Chloride ABG Glucose VBG pH Oxyhemoglobin Carboxyhemoglobin Sodium 134 L Potassium Chloride Carbon Dioxide 12 L BUN 6 L Creatinine Glucose 390 H POC Glucose 451 H Random Insulin C-Peptide Lactic Acid Calcium Ionized Calcium Phosphorus Magnesium AST 135 H ALT 85 H Alkaline Phosphatase 172 H Lactate Dehydrogenase 641 H NT-Pro-B Natriuret Pep Total Protein 5.4 L Albumin 2.3 L Arterial Blood Glucose Arterial Blood Ionized Calcium Urine WBC (Auto) Vancomycin Trough Phenytoin Crossmatch 10/02/20 10/02/20 10/02/20 12:50 13:05 13:05 WBC 38.6 H RBC Hgb 8.9 L Hct 29.0 L MCV 73 L MCH 22 L MCHC RDW 17.2 H Plt Count Lymph % (Auto) [place] % (Auto) Lymph # (Auto) [place] # (Auto) Baso # (Auto) Seg Neutrophils % Seg Neuts % (Manual) Lymphocytes % (Manual) Monocytes % (Manual) Nucleated RBC % 2.0 H Seg Neutrophils # Seg Neutrophils # Man 20.1 H Lymphocytes # (Manual) 10.4 H Monocytes # (Manual) 2.3 H PT INR APTT Fibrinogen D-Dimer ABG pH POC ABG pCO2 POC ABG pO2 ABG pO2 ABG HCO3 ABG Base Excess ABG Hemoglobin ABG Oxyhemoglobin ABG Sodium ABG Potassium ABG Chloride ABG Glucose VBG pH Oxyhemoglobin Carboxyhemoglobin Sodium Potassium Chloride Carbon Dioxide BUN Creatinine Glucose POC Glucose Random Insulin C-Peptide Lactic Acid Calcium Ionized Calcium Phosphorus Magnesium AST 184 H ALT 113 H Alkaline Phosphatase Lactate Dehydrogenase 769 H NT-Pro-B Natriuret Pep Total Protein Albumin Arterial Blood Glucose Arterial Blood Ionized Calcium Urine WBC (Auto) Vancomycin Trough Phenytoin Crossmatch See Detail 10/02/20 10/02/20 10/02/20 16:25 16:35 16:35 WBC RBC Hgb Hct MCV MCH MCHC RDW Plt Count Lymph % (Auto) [place] % (Auto) Lymph # (Auto) [place] # (Auto) Baso # (Auto) Seg Neutrophils % Seg Neuts % (Manual) Lymphocytes % (Manual) Monocytes % (Manual) Nucleated RBC % Seg Neutrophils # Seg Neutrophils # Man Lymphocytes # (Manual) Monocytes # (Manual) PT INR APTT Fibrinogen D-Dimer ABG pH 7.031 L* POC ABG pCO2 POC ABG pO2 ABG pO2 116.8 H ABG HCO3 12.7 L ABG Base Excess -16.9 L ABG Hemoglobin 7.8 L ABG Oxyhemoglobin ABG Sodium ABG Potassium ABG Chloride ABG Glucose VBG pH Oxyhemoglobin 94.9 L Carboxyhemoglobin Sodium Potassium Chloride Carbon Dioxide BUN Creatinine Glucose 403 H POC Glucose Random Insulin C-Peptide Lactic Acid 11.40 H* Calcium 6.3 L D Ionized Calcium Phosphorus Magnesium AST 70 H ALT Alkaline Phosphatase Lactate Dehydrogenase NT-Pro-B Natriuret Pep Total Protein 1.9 L D Albumin 1.2 L Arterial Blood Glucose Arterial Blood Ionized Calcium Urine WBC (Auto) Vancomycin Trough Phenytoin Crossmatch 10/02/20 10/02/20 10/02/20 18:18 18:18 22:30 WBC 11.5 H RBC 2.06 L Hgb 5.5 L* D Hct 17.3 L* D MCV MCH 27 L MCHC RDW 19.5 H Plt Count 60 L Lymph % (Auto) [place] % (Auto) Lymph # (Auto) [place] # (Auto) Baso # (Auto) Seg Neutrophils % Seg Neuts % (Manual) Lymphocytes % (Manual) 8.0 L Monocytes % (Manual) 8.0 H Nucleated RBC % 8.0 H Seg Neutrophils # Seg Neutrophils # Man Lymphocytes # (Manual) 0.9 L Monocytes # (Manual) 0.9 H PT 37.1 H INR 3.71 H APTT 135.8 H* Fibrinogen D-Dimer ABG pH 7.067 L* POC ABG pCO2 POC ABG pO2 ABG pO2 183.0 H ABG HCO3 14.1 L ABG Base Excess -15.1 L ABG Hemoglobin 7.7 L ABG Oxyhemoglobin ABG Sodium ABG Potassium ABG Chloride ABG Glucose VBG pH Oxyhemoglobin Carboxyhemoglobin Sodium Potassium Chloride Carbon Dioxide BUN Creatinine Glucose POC Glucose Random Insulin C-Peptide Lactic Acid Calcium Ionized Calcium Phosphorus Magnesium AST ALT Alkaline Phosphatase Lactate Dehydrogenase NT-Pro-B Natriuret Pep Total Protein Albumin Arterial Blood Glucose Arterial Blood Ionized Calcium Urine WBC (Auto) Vancomycin Trough Phenytoin Crossmatch 10/02/20 10/02/20 10/03/20 Unknown Unknown 00:01 WBC RBC Hgb Hct MCV MCH MCHC RDW Plt Count Lymph % (Auto) [place] % (Auto) Lymph # (Auto) [place] # (Auto) Baso # (Auto) Seg Neutrophils % Seg Neuts % (Manual) Lymphocytes % (Manual) Monocytes % (Manual) Nucleated RBC % Seg Neutrophils # Seg Neutrophils # Man Lymphocytes # (Manual) Monocytes # (Manual) PT 61.1 H INR 6.92 H* APTT 158.7 H* Fibrinogen < 60 L* D-Dimer > 68167 H ABG pH POC ABG pCO2 POC ABG pO2 ABG pO2 ABG HCO3 ABG Base Excess ABG Hemoglobin ABG Oxyhemoglobin ABG Sodium ABG Potassium ABG Chloride ABG Glucose VBG pH 6.949 L* Oxyhemoglobin Carboxyhemoglobin Sodium Potassium Chloride Carbon Dioxide BUN Creatinine Glucose POC Glucose 196 H Random Insulin C-Peptide Lactic Acid Calcium Ionized Calcium Phosphorus Magnesium AST ALT Alkaline Phosphatase Lactate Dehydrogenase NT-Pro-B Natriuret Pep Total Protein Albumin Arterial Blood Glucose Arterial Blood Ionized Calcium Urine WBC (Auto) Vancomycin Trough Phenytoin Crossmatch 10/03/20 10/03/20 10/03/20 00:40 00:40 00:40 WBC RBC Hgb Hct MCV MCH MCHC RDW Plt Count Lymph % (Auto) [place] % (Auto) Lymph # (Auto) [place] # (Auto) Baso # (Auto) Seg Neutrophils % Seg Neuts % (Manual) Lymphocytes % (Manual) Monocytes % (Manual) Nucleated RBC % Seg Neutrophils # Seg Neutrophils # Man Lymphocytes # (Manual) Monocytes # (Manual) PT 15.1 H INR 1.21 H APTT Fibrinogen D-Dimer ABG pH POC ABG pCO2 POC ABG pO2 ABG pO2 ABG HCO3 ABG Base Excess ABG Hemoglobin ABG Oxyhemoglobin ABG Sodium ABG Potassium ABG Chloride ABG Glucose VBG pH Oxyhemoglobin Carboxyhemoglobin Sodium 136 L Potassium Chloride Carbon Dioxide BUN Creatinine 1.6 H D Glucose 106 H POC Glucose Random Insulin C-Peptide Lactic Acid 5.60 H* Calcium 6.5 L Ionized Calcium Phosphorus Magnesium AST 232 H ALT 104 H Alkaline Phosphatase Lactate Dehydrogenase NT-Pro-B Natriuret Pep Total Protein 3.9 L D Albumin 2.4 L Arterial Blood Glucose Arterial Blood Ionized Calcium Urine WBC (Auto) Vancomycin Trough Phenytoin Crossmatch 10/03/20 10/03/20 10/03/20 02:08 02:08 02:08 WBC 17.6 H RBC 3.27 L Hgb 9.9 L D Hct 29.9 L D MCV MCH MCHC RDW 16.5 H Plt Count 75 L Lymph % (Auto) [place] % (Auto) Lymph # (Auto) [place] # (Auto) Baso # (Auto) Seg Neutrophils % Seg Neuts % (Manual) 76.0 H Lymphocytes % (Manual) Monocytes % (Manual) Nucleated RBC % 8.0 H Seg Neutrophils # Seg Neutrophils # Man 13.4 H Lymphocytes # (Manual) Monocytes # (Manual) PT INR APTT Fibrinogen D-Dimer ABG pH POC ABG pCO2 POC ABG pO2 ABG pO2 ABG HCO3 ABG Base Excess ABG Hemoglobin ABG Oxyhemoglobin ABG Sodium ABG Potassium ABG Chloride ABG Glucose VBG pH Oxyhemoglobin Carboxyhemoglobin Sodium Potassium Chloride Carbon Dioxide 19 L BUN Creatinine 1.4 H Glucose 306 H POC Glucose Random Insulin C-Peptide Lactic Acid 10.50 H* Calcium 6.4 L Ionized Calcium Phosphorus Magnesium AST ALT Alkaline Phosphatase Lactate Dehydrogenase NT-Pro-B Natriuret Pep Total Protein Albumin Arterial Blood Glucose Arterial Blood Ionized Calcium Urine WBC (Auto) Vancomycin Trough Phenytoin Crossmatch 10/03/20 10/03/20 10/03/20 02:42 03:59 05:31 WBC RBC Hgb Hct MCV MCH MCHC RDW Plt Count Lymph % (Auto) [place] % (Auto) Lymph # (Auto) [place] # (Auto) Baso # (Auto) Seg Neutrophils % Seg Neuts % (Manual) Lymphocytes % (Manual) Monocytes % (Manual) Nucleated RBC % Seg Neutrophils # Seg Neutrophils # Man Lymphocytes # (Manual) Monocytes # (Manual) PT INR APTT Fibrinogen D-Dimer ABG pH 7.144 L POC ABG pCO2 54.4 H POC ABG pO2 ABG pO2 ABG HCO3 ABG Base Excess ABG Hemoglobin 10.0 L ABG Oxyhemoglobin ABG Sodium ABG Potassium ABG Chloride 108.0 H ABG Glucose 306 H VBG pH Oxyhemoglobin Carboxyhemoglobin Sodium Potassium Chloride Carbon Dioxide BUN Creatinine Glucose POC Glucose 209 H Random Insulin C-Peptide Lactic Acid 9.20 H* Calcium Ionized Calcium Phosphorus Magnesium AST ALT Alkaline Phosphatase Lactate Dehydrogenase NT-Pro-B Natriuret Pep Total Protein Albumin Arterial Blood Glucose 306 H Arterial Blood Ionized Calcium 3.7 L Urine WBC (Auto) Vancomycin Trough Phenytoin Crossmatch 10/03/20 10/03/20 10/03/20 09:00 09:00 09:00 WBC 27.4 H RBC 2.84 L Hgb 8.5 L Hct 25.1 L MCV MCH MCHC RDW 16.1 H Plt Count 72 L Lymph % (Auto) [place] % (Auto) Lymph # (Auto) [place] # (Auto) Baso # (Auto) Seg Neutrophils % Seg Neuts % (Manual) Lymphocytes % (Manual) 11.0 L Monocytes % (Manual) Nucleated RBC % 3.0 H Seg Neutrophils # Seg Neutrophils # Man 18.4 H Lymphocytes # (Manual) Monocytes # (Manual) 1.9 H PT INR APTT Fibrinogen D-Dimer ABG pH POC ABG pCO2 POC ABG pO2 ABG pO2 ABG HCO3 ABG Base Excess ABG Hemoglobin ABG Oxyhemoglobin ABG Sodium ABG Potassium ABG Chloride ABG Glucose VBG pH Oxyhemoglobin Carboxyhemoglobin Sodium Potassium Chloride Carbon Dioxide BUN Creatinine 1.7 H Glucose 216 H POC Glucose Random Insulin C-Peptide Lactic Acid 9.20 H* Calcium 6.3 L Ionized Calcium Phosphorus Magnesium AST 331 H ALT 171 H Alkaline Phosphatase Lactate Dehydrogenase NT-Pro-B Natriuret Pep Total Protein 3.7 L Albumin 1.9 L Arterial Blood Glucose Arterial Blood Ionized Calcium Urine WBC (Auto) Vancomycin Trough Phenytoin Crossmatch 10/03/20 10/03/20 10/03/20 11:20 11:46 11:50 WBC 28.7 H RBC 2.67 L Hgb 8.0 L Hct 23.7 L MCV MCH MCHC RDW 16.6 H Plt Count 76 L Lymph % (Auto) [place] % (Auto) Lymph # (Auto) [place] # (Auto) Baso # (Auto) Seg Neutrophils % Seg Neuts % (Manual) Lymphocytes % (Manual) Monocytes % (Manual) Nucleated RBC % Seg Neutrophils # Seg Neutrophils # Man Lymphocytes # (Manual) Monocytes # (Manual) PT INR APTT Fibrinogen D-Dimer ABG pH POC ABG pCO2 POC ABG pO2 ABG pO2 ABG HCO3 ABG Base Excess ABG Hemoglobin ABG Oxyhemoglobin ABG Sodium ABG Potassium ABG Chloride ABG Glucose VBG pH Oxyhemoglobin Carboxyhemoglobin Sodium Potassium Chloride Carbon Dioxide BUN Creatinine Glucose POC Glucose 125 H Random Insulin C-Peptide Lactic Acid 8.00 H* Calcium Ionized Calcium Phosphorus Magnesium AST ALT Alkaline Phosphatase Lactate Dehydrogenase NT-Pro-B Natriuret Pep Total Protein Albumin Arterial Blood Glucose Arterial Blood Ionized Calcium Urine WBC (Auto) Vancomycin Trough Phenytoin Crossmatch 10/03/20 10/04/20 10/04/20 11:50 00:40 00:40 WBC RBC Hgb 6.8 L Hct 19.4 L* MCV MCH MCHC RDW Plt Count 49 L Lymph % (Auto) [place] % (Auto) Lymph # (Auto) [place] # (Auto) Baso # (Auto) Seg Neutrophils % Seg Neuts % (Manual) Lymphocytes % (Manual) Monocytes % (Manual) Nucleated RBC % Seg Neutrophils # Seg Neutrophils # Man Lymphocytes # (Manual) Monocytes # (Manual) PT INR APTT Fibrinogen D-Dimer ABG pH 7.244 L POC ABG pCO2 POC ABG pO2 ABG pO2 ABG HCO3 ABG Base Excess -4.5 L ABG Hemoglobin 7.3 L ABG Oxyhemoglobin ABG Sodium ABG Potassium ABG Chloride ABG Glucose VBG pH Oxyhemoglobin Carboxyhemoglobin Sodium Potassium Chloride Carbon Dioxide BUN Creatinine Glucose POC Glucose Random Insulin C-Peptide Lactic Acid Calcium Ionized Calcium Phosphorus Magnesium AST ALT Alkaline Phosphatase Lactate Dehydrogenase NT-Pro-B Natriuret Pep Total Protein Albumin Arterial Blood Glucose Arterial Blood Ionized Calcium Urine WBC (Auto) Vancomycin Trough Phenytoin Crossmatch 10/04/20 10/04/20 10/04/20 03:53 10:00 10:00 WBC 14.6 H RBC 2.57 L Hgb 7.6 L Hct 22.5 L MCV MCH MCHC RDW 15.8 H Plt Count 38 L Lymph % (Auto) 7.7 L [place] % (Auto) Lymph # (Auto) 1.1 L [place] # (Auto) 0.9 H Baso # (Auto) Seg Neutrophils % 85.6 H Seg Neuts % (Manual) Lymphocytes % (Manual) Monocytes % (Manual) Nucleated RBC % Seg Neutrophils # 12.5 H Seg Neutrophils # Man Lymphocytes # (Manual) Monocytes # (Manual) PT INR APTT Fibrinogen D-Dimer ABG pH POC ABG pCO2 POC ABG pO2 110.6 H ABG pO2 ABG HCO3 ABG Base Excess ABG Hemoglobin 6.7 L ABG Oxyhemoglobin ABG Sodium 132.0 L ABG Potassium ABG Chloride ABG Glucose 111 H VBG pH Oxyhemoglobin Carboxyhemoglobin Sodium 134 L D Potassium Chloride 97.6 L Carbon Dioxide BUN Creatinine 1.7 H Glucose POC Glucose Random Insulin C-Peptide Lactic Acid Calcium 6.3 L Ionized Calcium Phosphorus Magnesium AST 203 H ALT 81 H Alkaline Phosphatase Lactate Dehydrogenase NT-Pro-B Natriuret Pep Total Protein 3.9 L Albumin 2.3 L Arterial Blood Glucose 111 H Arterial Blood Ionized Calcium 3.5 L Urine WBC (Auto) Vancomycin Trough Phenytoin Crossmatch 10/04/20 10/04/20 10/04/20 10:00 10:00 10:14 WBC RBC Hgb Hct MCV MCH MCHC RDW Plt Count Lymph % (Auto) [place] % (Auto) Lymph # (Auto) [place] # (Auto) Baso # (Auto) Seg Neutrophils % Seg Neuts % (Manual) Lymphocytes % (Manual) Monocytes % (Manual) Nucleated RBC % Seg Neutrophils # Seg Neutrophils # Man Lymphocytes # (Manual) Monocytes # (Manual) PT INR APTT Fibrinogen D-Dimer > 07241 H ABG pH POC ABG pCO2 POC ABG pO2 ABG pO2 ABG HCO3 ABG Base Excess ABG Hemoglobin ABG Oxyhemoglobin ABG Sodium ABG Potassium ABG Chloride ABG Glucose VBG pH Oxyhemoglobin Carboxyhemoglobin Sodium Potassium Chloride Carbon Dioxide BUN Creatinine Glucose POC Glucose Random Insulin C-Peptide Lactic Acid 3.90 H* Calcium Ionized Calcium Phosphorus Magnesium AST ALT Alkaline Phosphatase Lactate Dehydrogenase NT-Pro-B Natriuret Pep 2788 H Total Protein Albumin Arterial Blood Glucose Arterial Blood Ionized Calcium Urine WBC (Auto) Vancomycin Trough Phenytoin Crossmatch 10/04/20 10/04/20 10/04/20 14:00 14:00 18:00 WBC 15.7 H RBC 3.17 L Hgb 9.3 L 9.6 L Hct 27.2 L 28.0 L MCV MCH MCHC RDW 16.9 H Plt Count 41 L Lymph % (Auto) 8.6 L [place] % (Auto) Lymph # (Auto) [place] # (Auto) 0.9 H Baso # (Auto) Seg Neutrophils % 85.4 H Seg Neuts % (Manual) Lymphocytes % (Manual) Monocytes % (Manual) Nucleated RBC % Seg Neutrophils # 13.4 H Seg Neutrophils # Man Lymphocytes # (Manual) Monocytes # (Manual) PT INR APTT Fibrinogen D-Dimer ABG pH POC ABG pCO2 POC ABG pO2 ABG pO2 ABG HCO3 ABG Base Excess ABG Hemoglobin ABG Oxyhemoglobin ABG Sodium ABG Potassium ABG Chloride ABG Glucose VBG pH Oxyhemoglobin Carboxyhemoglobin Sodium 133 L Potassium Chloride 96.4 L Carbon Dioxide BUN 18 H Creatinine 1.7 H Glucose POC Glucose Random Insulin C-Peptide Lactic Acid Calcium 6.3 L Ionized Calcium Phosphorus Magnesium AST ALT Alkaline Phosphatase Lactate Dehydrogenase NT-Pro-B Natriuret Pep Total Protein Albumin Arterial Blood Glucose Arterial Blood Ionized Calcium Urine WBC (Auto) Vancomycin Trough Phenytoin Crossmatch 10/04/20 10/04/20 10/05/20 18:00 22:00 05:00 WBC 17.6 H RBC 3.34 L Hgb 9.9 L Hct 29.4 L MCV MCH MCHC RDW 17.1 H Plt Count 56 L Lymph % (Auto) 8.5 L [place] % (Auto) Lymph # (Auto) [place] # (Auto) 1.0 H Baso # (Auto) Seg Neutrophils % 85.1 H Seg Neuts % (Manual) Lymphocytes % (Manual) Monocytes % (Manual) Nucleated RBC % Seg Neutrophils # 15.0 H Seg Neutrophils # Man Lymphocytes # (Manual) Monocytes # (Manual) PT INR APTT Fibrinogen D-Dimer ABG pH POC ABG pCO2 POC ABG pO2 ABG pO2 ABG HCO3 ABG Base Excess ABG Hemoglobin ABG Oxyhemoglobin ABG Sodium ABG Potassium ABG Chloride ABG Glucose VBG pH Oxyhemoglobin Carboxyhemoglobin Sodium 136 L Potassium Chloride Carbon Dioxide BUN 18 H Creatinine 1.7 H Glucose POC Glucose Random Insulin C-Peptide Lactic Acid 2.30 H* Calcium 6.6 L Ionized Calcium Phosphorus Magnesium AST ALT Alkaline Phosphatase Lactate Dehydrogenase NT-Pro-B Natriuret Pep Total Protein Albumin Arterial Blood Glucose Arterial Blood Ionized Calcium Urine WBC (Auto) Vancomycin Trough Phenytoin Crossmatch 10/05/20 10/05/20 10/05/20 05:00 05:00 05:03 WBC RBC Hgb Hct MCV MCH MCHC RDW Plt Count Lymph % (Auto) [place] % (Auto) Lymph # (Auto) [place] # (Auto) Baso # (Auto) Seg Neutrophils % Seg Neuts % (Manual) Lymphocytes % (Manual) Monocytes % (Manual) Nucleated RBC % Seg Neutrophils # Seg Neutrophils # Man Lymphocytes # (Manual) Monocytes # (Manual) PT INR APTT Fibrinogen D-Dimer ABG pH 7.458 H POC ABG pCO2 POC ABG pO2 ABG pO2 74.3 L ABG HCO3 27.5 H ABG Base Excess 3.4 H ABG Hemoglobin 10.0 L ABG Oxyhemoglobin ABG Sodium ABG Potassium ABG Chloride ABG Glucose VBG pH Oxyhemoglobin 94.9 L Carboxyhemoglobin Sodium Potassium Chloride Carbon Dioxide BUN 19 H Creatinine 1.8 H Glucose POC Glucose Random Insulin C-Peptide Lactic Acid Calcium 6.8 L Ionized Calcium 3.9 L Phosphorus Magnesium AST 225 H ALT 85 H Alkaline Phosphatase Lactate Dehydrogenase NT-Pro-B Natriuret Pep Total Protein 4.5 L Albumin 2.7 L Arterial Blood Glucose Arterial Blood Ionized Calcium Urine WBC (Auto) Vancomycin Trough Phenytoin Crossmatch 10/05/20 10/05/20 10/05/20 10:10 15:00 19:40 WBC RBC Hgb Hct MCV MCH MCHC RDW Plt Count Lymph % (Auto) [place] % (Auto) Lymph # (Auto) [place] # (Auto) Baso # (Auto) Seg Neutrophils % Seg Neuts % (Manual) Lymphocytes % (Manual) Monocytes % (Manual) Nucleated RBC % Seg Neutrophils # Seg Neutrophils # Man Lymphocytes # (Manual) Monocytes # (Manual) PT INR APTT Fibrinogen D-Dimer ABG pH POC ABG pCO2 POC ABG pO2 ABG pO2 ABG HCO3 ABG Base Excess ABG Hemoglobin ABG Oxyhemoglobin ABG Sodium ABG Potassium ABG Chloride ABG Glucose VBG pH Oxyhemoglobin Carboxyhemoglobin Sodium Potassium 3.5 L Chloride Carbon Dioxide 31 H 32 H BUN 19 H 19 H Creatinine 1.8 H 1.8 H Glucose POC Glucose Random Insulin C-Peptide Lactic Acid Calcium 7.0 L 7.2 L Ionized Calcium Phosphorus Magnesium 2.90 H AST ALT Alkaline Phosphatase Lactate Dehydrogenase NT-Pro-B Natriuret Pep Total Protein Albumin Arterial Blood Glucose Arterial Blood Ionized Calcium Urine WBC (Auto) Vancomycin Trough Phenytoin Crossmatch 10/06/20 10/06/20 10/06/20 01:05 03:12 04:00 WBC 17.1 H RBC 3.47 L Hgb Hct MCV MCH MCHC RDW 17.4 H Plt Count 82 L Lymph % (Auto) 8.3 L [place] % (Auto) Lymph # (Auto) [place] # (Auto) 1.1 H Baso # (Auto) Seg Neutrophils % 83.8 H Seg Neuts % (Manual) Lymphocytes % (Manual) Monocytes % (Manual) Nucleated RBC % Seg Neutrophils # 14.3 H Seg Neutrophils # Man Lymphocytes # (Manual) Monocytes # (Manual) PT INR APTT Fibrinogen D-Dimer ABG pH 7.474 H POC ABG pCO2 POC ABG pO2 129.5 H ABG pO2 ABG HCO3 ABG Base Excess ABG Hemoglobin 11.4 L ABG Oxyhemoglobin ABG Sodium 131.8 L ABG Potassium ABG Chloride ABG Glucose 103 H VBG pH Oxyhemoglobin Carboxyhemoglobin 0.3 L Sodium Potassium Chloride Carbon Dioxide BUN Creatinine Glucose POC Glucose Random Insulin C-Peptide Lactic Acid Calcium Ionized Calcium Phosphorus Magnesium 3.70 H AST ALT Alkaline Phosphatase Lactate Dehydrogenase NT-Pro-B Natriuret Pep Total Protein Albumin Arterial Blood Glucose 103 H Arterial Blood Ionized Calcium 4.2 L Urine WBC (Auto) Vancomycin Trough Phenytoin Crossmatch 10/06/20 10/06/20 10/06/20 04:00 05:31 08:12 WBC RBC Hgb Hct MCV MCH MCHC RDW Plt Count Lymph % (Auto) [place] % (Auto) Lymph # (Auto) [place] # (Auto) Baso # (Auto) Seg Neutrophils % Seg Neuts % (Manual) Lymphocytes % (Manual) Monocytes % (Manual) Nucleated RBC % Seg Neutrophils # Seg Neutrophils # Man Lymphocytes # (Manual) Monocytes # (Manual) PT INR APTT Fibrinogen D-Dimer ABG pH POC ABG pCO2 POC ABG pO2 ABG pO2 ABG HCO3 ABG Base Excess ABG Hemoglobin ABG Oxyhemoglobin ABG Sodium ABG Potassium ABG Chloride ABG Glucose VBG pH Oxyhemoglobin Carboxyhemoglobin Sodium Potassium 3.5 L Chloride Carbon Dioxide BUN 19 H Creatinine 1.8 H Glucose 102 H POC Glucose 116 H Random Insulin C-Peptide Lactic Acid Calcium 7.2 L Ionized Calcium Phosphorus Magnesium 5.40 H AST 307 H ALT 137 H Alkaline Phosphatase Lactate Dehydrogenase NT-Pro-B Natriuret Pep Total Protein 4.5 L Albumin 2.6 L Arterial Blood Glucose Arterial Blood Ionized Calcium Urine WBC (Auto) Vancomycin Trough Phenytoin Crossmatch 10/06/20 10/06/20 10/06/20 11:00 11:50 20:13 WBC RBC Hgb Hct MCV MCH MCHC RDW Plt Count Lymph % (Auto) [place] % (Auto) Lymph # (Auto) [place] # (Auto) Baso # (Auto) Seg Neutrophils % Seg Neuts % (Manual) Lymphocytes % (Manual) Monocytes % (Manual) Nucleated RBC % Seg Neutrophils # Seg Neutrophils # Man Lymphocytes # (Manual) Monocytes # (Manual) PT INR APTT Fibrinogen D-Dimer ABG pH POC ABG pCO2 POC ABG pO2 ABG pO2 ABG HCO3 ABG Base Excess ABG Hemoglobin ABG Oxyhemoglobin ABG Sodium ABG Potassium ABG Chloride ABG Glucose VBG pH Oxyhemoglobin Carboxyhemoglobin Sodium Potassium Chloride Carbon Dioxide BUN Creatinine Glucose POC Glucose 106 H Random Insulin C-Peptide Lactic Acid Calcium Ionized Calcium Phosphorus Magnesium 6.50 H 6.20 H AST ALT Alkaline Phosphatase Lactate Dehydrogenase NT-Pro-B Natriuret Pep Total Protein Albumin Arterial Blood Glucose Arterial Blood Ionized Calcium Urine WBC (Auto) Vancomycin Trough Phenytoin Crossmatch 10/06/20 10/06/20 10/06/20 20:17 22:29 23:57 WBC RBC Hgb Hct MCV MCH MCHC RDW Plt Count Lymph % (Auto) [place] % (Auto) Lymph # (Auto) [place] # (Auto) Baso # (Auto) Seg Neutrophils % Seg Neuts % (Manual) Lymphocytes % (Manual) Monocytes % (Manual) Nucleated RBC % Seg Neutrophils # Seg Neutrophils # Man Lymphocytes # (Manual) Monocytes # (Manual) PT INR APTT Fibrinogen D-Dimer ABG pH POC ABG pCO2 POC ABG pO2 ABG pO2 ABG HCO3 ABG Base Excess ABG Hemoglobin ABG Oxyhemoglobin ABG Sodium ABG Potassium ABG Chloride ABG Glucose VBG pH Oxyhemoglobin Carboxyhemoglobin Sodium Potassium Chloride Carbon Dioxide BUN Creatinine Glucose POC Glucose 112 H 126 H 133 H Random Insulin C-Peptide Lactic Acid Calcium Ionized Calcium Phosphorus Magnesium AST ALT Alkaline Phosphatase Lactate Dehydrogenase NT-Pro-B Natriuret Pep Total Protein Albumin Arterial Blood Glucose Arterial Blood Ionized Calcium Urine WBC (Auto) Vancomycin Trough Phenytoin Crossmatch 10/07/20 10/07/20 10/07/20 00:35 02:22 03:16 WBC RBC Hgb Hct MCV MCH MCHC RDW Plt Count Lymph % (Auto) [place] % (Auto) Lymph # (Auto) [place] # (Auto) Baso # (Auto) Seg Neutrophils % Seg Neuts % (Manual) Lymphocytes % (Manual) Monocytes % (Manual) Nucleated RBC % Seg Neutrophils # Seg Neutrophils # Man Lymphocytes # (Manual) Monocytes # (Manual) PT INR APTT Fibrinogen D-Dimer ABG pH POC ABG pCO2 POC ABG pO2 ABG pO2 ABG HCO3 ABG Base Excess ABG Hemoglobin 11.6 L ABG Oxyhemoglobin ABG Sodium ABG Potassium ABG Chloride ABG Glucose 156 H VBG pH Oxyhemoglobin Carboxyhemoglobin 0.3 L Sodium Potassium Chloride Carbon Dioxide BUN Creatinine Glucose POC Glucose 124 H Random Insulin C-Peptide Lactic Acid Calcium Ionized Calcium Phosphorus Magnesium 5.90 H AST ALT Alkaline Phosphatase Lactate Dehydrogenase NT-Pro-B Natriuret Pep Total Protein Albumin Arterial Blood Glucose 156 H Arterial Blood Ionized Calcium 4.2 L Urine WBC (Auto) Vancomycin Trough Phenytoin Crossmatch 10/07/20 10/07/20 10/07/20 04:06 05:45 07:05 WBC 19.2 H RBC 3.57 L Hgb Hct MCV MCH MCHC 35 H RDW 17.1 H Plt Count 129 L Lymph % (Auto) [place] % (Auto) Lymph # (Auto) [place] # (Auto) Baso # (Auto) Seg Neutrophils % Seg Neuts % (Manual) 94.0 H Lymphocytes % (Manual) 6.0 L Monocytes % (Manual) Nucleated RBC % Seg Neutrophils # Seg Neutrophils # Man 18.0 H Lymphocytes # (Manual) Monocytes # (Manual) PT INR APTT Fibrinogen D-Dimer ABG pH POC ABG pCO2 POC ABG pO2 ABG pO2 ABG HCO3 ABG Base Excess ABG Hemoglobin ABG Oxyhemoglobin ABG Sodium ABG Potassium ABG Chloride ABG Glucose VBG pH Oxyhemoglobin Carboxyhemoglobin Sodium Potassium Chloride Carbon Dioxide BUN Creatinine Glucose POC Glucose 135 H 149 H Random Insulin C-Peptide Lactic Acid Calcium Ionized Calcium Phosphorus Magnesium AST ALT Alkaline Phosphatase Lactate Dehydrogenase NT-Pro-B Natriuret Pep Total Protein Albumin Arterial Blood Glucose Arterial Blood Ionized Calcium Urine WBC (Auto) Vancomycin Trough Phenytoin Crossmatch 10/07/20 10/07/20 10/07/20 07:05 07:05 12:21 WBC RBC Hgb Hct MCV MCH MCHC RDW Plt Count Lymph % (Auto) [place] % (Auto) Lymph # (Auto) [place] # (Auto) Baso # (Auto) Seg Neutrophils % Seg Neuts % (Manual) Lymphocytes % (Manual) Monocytes % (Manual) Nucleated RBC % Seg Neutrophils # Seg Neutrophils # Man Lymphocytes # (Manual) Monocytes # (Manual) PT INR APTT Fibrinogen D-Dimer ABG pH POC ABG pCO2 POC ABG pO2 ABG pO2 ABG HCO3 ABG Base Excess ABG Hemoglobin ABG Oxyhemoglobin ABG Sodium ABG Potassium ABG Chloride ABG Glucose VBG pH Oxyhemoglobin Carboxyhemoglobin Sodium Potassium Chloride Carbon Dioxide BUN 21 H Creatinine 1.7 H Glucose 171 H POC Glucose 124 H Random Insulin C-Peptide Lactic Acid Calcium 7.4 L Ionized Calcium Phosphorus Magnesium 6.10 H AST 245 H ALT 147 H Alkaline Phosphatase Lactate Dehydrogenase NT-Pro-B Natriuret Pep Total Protein 5.3 L Albumin 2.8 L Arterial Blood Glucose Arterial Blood Ionized Calcium Urine WBC (Auto) Vancomycin Trough Phenytoin Crossmatch 10/07/20 10/07/20 10/07/20 19:52 21:00 21:50 WBC RBC Hgb Hct MCV MCH MCHC RDW Plt Count Lymph % (Auto) [place] % (Auto) Lymph # (Auto) [place] # (Auto) Baso # (Auto) Seg Neutrophils % Seg Neuts % (Manual) Lymphocytes % (Manual) Monocytes % (Manual) Nucleated RBC % Seg Neutrophils # Seg Neutrophils # Man Lymphocytes # (Manual) Monocytes # (Manual) PT INR APTT Fibrinogen D-Dimer ABG pH POC ABG pCO2 POC ABG pO2 ABG pO2 ABG HCO3 ABG Base Excess ABG Hemoglobin ABG Oxyhemoglobin ABG Sodium ABG Potassium ABG Chloride ABG Glucose VBG pH Oxyhemoglobin Carboxyhemoglobin Sodium Potassium Chloride Carbon Dioxide BUN Creatinine Glucose POC Glucose 193 H 138 H Random Insulin C-Peptide Lactic Acid Calcium Ionized Calcium 4.4 L Phosphorus Magnesium AST ALT Alkaline Phosphatase Lactate Dehydrogenase NT-Pro-B Natriuret Pep Total Protein Albumin Arterial Blood Glucose Arterial Blood Ionized Calcium Urine WBC (Auto) Vancomycin Trough Phenytoin Crossmatch 10/07/20 10/08/20 10/08/20 23:41 04:20 05:30 WBC RBC Hgb Hct MCV MCH MCHC RDW Plt Count Lymph % (Auto) [place] % (Auto) Lymph # (Auto) [place] # (Auto) Baso # (Auto) Seg Neutrophils % Seg Neuts % (Manual) Lymphocytes % (Manual) Monocytes % (Manual) Nucleated RBC % Seg Neutrophils # Seg Neutrophils # Man Lymphocytes # (Manual) Monocytes # (Manual) PT INR APTT Fibrinogen D-Dimer ABG pH 7.467 H POC ABG pCO2 POC ABG pO2 189.8 H ABG pO2 ABG HCO3 ABG Base Excess ABG Hemoglobin 10.8 L ABG Oxyhemoglobin ABG Sodium ABG Potassium ABG Chloride ABG Glucose 133 H VBG pH Oxyhemoglobin Carboxyhemoglobin Sodium Potassium Chloride Carbon Dioxide BUN Creatinine Glucose POC Glucose 118 H 114 H Random Insulin C-Peptide Lactic Acid Calcium Ionized Calcium Phosphorus Magnesium AST ALT Alkaline Phosphatase Lactate Dehydrogenase NT-Pro-B Natriuret Pep Total Protein Albumin Arterial Blood Glucose 133 H Arterial Blood Ionized Calcium 4.2 L Urine WBC (Auto) Vancomycin Trough Phenytoin Crossmatch 10/08/20 10/08/20 10/08/20 05:43 06:42 06:42 WBC 23.6 H RBC 3.54 L Hgb Hct MCV MCH MCHC RDW 17.8 H Plt Count Lymph % (Auto) [place] % (Auto) Lymph # (Auto) [place] # (Auto) Baso # (Auto) Seg Neutrophils % Seg Neuts % (Manual) 93.0 H Lymphocytes % (Manual) 3.0 L Monocytes % (Manual) Nucleated RBC % 1.0 H Seg Neutrophils # Seg Neutrophils # Man 21.9 H Lymphocytes # (Manual) 0.7 L Monocytes # (Manual) 0.9 H PT INR APTT Fibrinogen D-Dimer ABG pH POC ABG pCO2 POC ABG pO2 ABG pO2 ABG HCO3 ABG Base Excess ABG Hemoglobin ABG Oxyhemoglobin ABG Sodium ABG Potassium ABG Chloride ABG Glucose VBG pH Oxyhemoglobin Carboxyhemoglobin Sodium Potassium Chloride Carbon Dioxide BUN 28 H Creatinine 1.6 H Glucose 141 H POC Glucose 126 H Random Insulin C-Peptide Lactic Acid Calcium 7.6 L Ionized Calcium Phosphorus Magnesium AST 162 H ALT 103 H Alkaline Phosphatase Lactate Dehydrogenase NT-Pro-B Natriuret Pep Total Protein 5.4 L Albumin 2.7 L Arterial Blood Glucose Arterial Blood Ionized Calcium Urine WBC (Auto) Vancomycin Trough Phenytoin Crossmatch 10/08/20 10/08/20 10/08/20 11:20 16:05 20:14 WBC RBC Hgb Hct MCV MCH MCHC RDW Plt Count Lymph % (Auto) [place] % (Auto) Lymph # (Auto) [place] # (Auto) Baso # (Auto) Seg Neutrophils % Seg Neuts % (Manual) Lymphocytes % (Manual) Monocytes % (Manual) Nucleated RBC % Seg Neutrophils # Seg Neutrophils # Man Lymphocytes # (Manual) Monocytes # (Manual) PT INR APTT Fibrinogen D-Dimer ABG pH POC ABG pCO2 POC ABG pO2 ABG pO2 ABG HCO3 ABG Base Excess ABG Hemoglobin ABG Oxyhemoglobin ABG Sodium ABG Potassium ABG Chloride ABG Glucose VBG pH Oxyhemoglobin Carboxyhemoglobin Sodium Potassium Chloride Carbon Dioxide BUN Creatinine Glucose POC Glucose 127 H 172 H 147 H Random Insulin C-Peptide Lactic Acid Calcium Ionized Calcium Phosphorus Magnesium AST ALT Alkaline Phosphatase Lactate Dehydrogenase NT-Pro-B Natriuret Pep Total Protein Albumin Arterial Blood Glucose Arterial Blood Ionized Calcium Urine WBC (Auto) Vancomycin Trough Phenytoin Crossmatch 10/08/20 10/08/20 10/09/20 21:27 23:24 02:10 WBC RBC Hgb Hct MCV MCH MCHC RDW Plt Count Lymph % (Auto) [place] % (Auto) Lymph # (Auto) [place] # (Auto) Baso # (Auto) Seg Neutrophils % Seg Neuts % (Manual) Lymphocytes % (Manual) Monocytes % (Manual) Nucleated RBC % Seg Neutrophils # Seg Neutrophils # Man Lymphocytes # (Manual) Monocytes # (Manual) PT INR APTT Fibrinogen D-Dimer ABG pH POC ABG pCO2 POC ABG pO2 ABG pO2 ABG HCO3 ABG Base Excess ABG Hemoglobin ABG Oxyhemoglobin ABG Sodium ABG Potassium ABG Chloride ABG Glucose VBG pH Oxyhemoglobin Carboxyhemoglobin Sodium Potassium Chloride Carbon Dioxide BUN Creatinine Glucose POC Glucose 140 H 135 H 111 H Random Insulin C-Peptide Lactic Acid Calcium Ionized Calcium Phosphorus Magnesium AST ALT Alkaline Phosphatase Lactate Dehydrogenase NT-Pro-B Natriuret Pep Total Protein Albumin Arterial Blood Glucose Arterial Blood Ionized Calcium Urine WBC (Auto) Vancomycin Trough Phenytoin Crossmatch 10/09/20 10/09/20 10/09/20 03:44 04:39 05:46 WBC 19.7 H RBC 3.51 L Hgb Hct MCV MCH MCHC RDW 17.7 H Plt Count Lymph % (Auto) [place] % (Auto) Lymph # (Auto) [place] # (Auto) Baso # (Auto) Seg Neutrophils % Seg Neuts % (Manual) 86.0 H Lymphocytes % (Manual) 4.0 L Monocytes % (Manual) 9.0 H Nucleated RBC % Seg Neutrophils # Seg Neutrophils # Man 16.9 H Lymphocytes # (Manual) 0.8 L Monocytes # (Manual) 1.8 H PT INR APTT Fibrinogen D-Dimer ABG pH 7.513 H POC ABG pCO2 POC ABG pO2 33.6 L ABG pO2 ABG HCO3 ABG Base Excess ABG Hemoglobin 11.1 L ABG Oxyhemoglobin 70.2 L ABG Sodium ABG Potassium 3.2 L ABG Chloride 108.0 H ABG Glucose 108 H VBG pH Oxyhemoglobin Carboxyhemoglobin Sodium Potassium Chloride Carbon Dioxide BUN Creatinine Glucose POC Glucose 109 H Random Insulin C-Peptide Lactic Acid Calcium Ionized Calcium Phosphorus Magnesium AST ALT Alkaline Phosphatase Lactate Dehydrogenase NT-Pro-B Natriuret Pep Total Protein Albumin Arterial Blood Glucose 108 H Arterial Blood Ionized Calcium 4.3 L Urine WBC (Auto) Vancomycin Trough Phenytoin Crossmatch 10/09/20 10/10/20 10/10/20 05:46 04:00 04:00 WBC 18.4 H RBC Hgb Hct MCV MCH MCHC RDW 17.5 H Plt Count Lymph % (Auto) 9.8 L [place] % (Auto) 8.8 H Lymph # (Auto) [place] # (Auto) 1.6 H Baso # (Auto) Seg Neutrophils % 80.0 H Seg Neuts % (Manual) Lymphocytes % (Manual) Monocytes % (Manual) Nucleated RBC % Seg Neutrophils # 14.7 H Seg Neutrophils # Man Lymphocytes # (Manual) Monocytes # (Manual) PT INR APTT Fibrinogen D-Dimer ABG pH POC ABG pCO2 POC ABG pO2 ABG pO2 ABG HCO3 ABG Base Excess ABG Hemoglobin ABG Oxyhemoglobin ABG Sodium ABG Potassium ABG Chloride ABG Glucose VBG pH Oxyhemoglobin Carboxyhemoglobin Sodium 146 H Potassium 3.2 L 2.9 L* Chloride 108.9 H 112.6 H Carbon Dioxide BUN 34 H 28 H Creatinine 1.4 H 1.3 H Glucose 109 H 101 H POC Glucose Random Insulin C-Peptide Lactic Acid Calcium 7.6 L 7.8 L Ionized Calcium Phosphorus Magnesium AST 137 H 122 H ALT 99 H 81 H Alkaline Phosphatase Lactate Dehydrogenase NT-Pro-B Natriuret Pep Total Protein 5.1 L 5.2 L Albumin 2.6 L 2.7 L Arterial Blood Glucose Arterial Blood Ionized Calcium Urine WBC (Auto) Vancomycin Trough Phenytoin Crossmatch 10/10/20 10/10/20 10/11/20 04:42 09:50 00:44 WBC RBC Hgb Hct MCV MCH MCHC RDW Plt Count Lymph % (Auto) [place] % (Auto) Lymph # (Auto) [place] # (Auto) Baso # (Auto) Seg Neutrophils % Seg Neuts % (Manual) Lymphocytes % (Manual) Monocytes % (Manual) Nucleated RBC % Seg Neutrophils # Seg Neutrophils # Man Lymphocytes # (Manual) Monocytes # (Manual) PT INR APTT Fibrinogen D-Dimer ABG pH 7.534 H POC ABG pCO2 POC ABG pO2 ABG pO2 95.2 H ABG HCO3 ABG Base Excess ABG Hemoglobin 11.3 L ABG Oxyhemoglobin ABG Sodium ABG Potassium ABG Chloride ABG Glucose VBG pH Oxyhemoglobin Carboxyhemoglobin Sodium Potassium Chloride Carbon Dioxide BUN Creatinine Glucose POC Glucose 109 H 106 H Random Insulin C-Peptide Lactic Acid Calcium Ionized Calcium Phosphorus Magnesium AST ALT Alkaline Phosphatase Lactate Dehydrogenase NT-Pro-B Natriuret Pep Total Protein Albumin Arterial Blood Glucose Arterial Blood Ionized Calcium Urine WBC (Auto) Vancomycin Trough Phenytoin Crossmatch 10/11/20 10/11/20 10/11/20 04:00 04:00 06:08 WBC 27.0 H RBC Hgb Hct MCV MCH MCHC RDW 17.7 H Plt Count Lymph % (Auto) 6.3 L [place] % (Auto) Lymph # (Auto) [place] # (Auto) 1.5 H Baso # (Auto) Seg Neutrophils % 87.1 H Seg Neuts % (Manual) Lymphocytes % (Manual) Monocytes % (Manual) Nucleated RBC % Seg Neutrophils # 23.5 H Seg Neutrophils # Man Lymphocytes # (Manual) Monocytes # (Manual) PT INR APTT Fibrinogen D-Dimer ABG pH POC ABG pCO2 POC ABG pO2 ABG pO2 ABG HCO3 ABG Base Excess ABG Hemoglobin ABG Oxyhemoglobin ABG Sodium ABG Potassium ABG Chloride ABG Glucose VBG pH Oxyhemoglobin Carboxyhemoglobin Sodium Potassium 3.2 L Chloride 110.4 H Carbon Dioxide 19 L BUN 22 H Creatinine Glucose 116 H POC Glucose 107 H Random Insulin C-Peptide Lactic Acid Calcium 7.7 L Ionized Calcium Phosphorus Magnesium 1.60 L AST ALT Alkaline Phosphatase Lactate Dehydrogenase NT-Pro-B Natriuret Pep Total Protein Albumin Arterial Blood Glucose Arterial Blood Ionized Calcium Urine WBC (Auto) Vancomycin Trough Phenytoin Crossmatch 10/11/20 10/11/20 10/12/20 11:41 13:26 03:52 WBC RBC Hgb Hct MCV MCH MCHC RDW Plt Count Lymph % (Auto) [place] % (Auto) Lymph # (Auto) [place] # (Auto) Baso # (Auto) Seg Neutrophils % Seg Neuts % (Manual) Lymphocytes % (Manual) Monocytes % (Manual) Nucleated RBC % Seg Neutrophils # Seg Neutrophils # Man Lymphocytes # (Manual) Monocytes # (Manual) PT INR APTT Fibrinogen D-Dimer ABG pH POC ABG pCO2 POC ABG pO2 ABG pO2 ABG HCO3 ABG Base Excess ABG Hemoglobin ABG Oxyhemoglobin ABG Sodium ABG Potassium ABG Chloride ABG Glucose VBG pH Oxyhemoglobin Carboxyhemoglobin Sodium Potassium Chloride Carbon Dioxide BUN Creatinine Glucose POC Glucose 116 H 114 H Random Insulin C-Peptide Lactic Acid Calcium Ionized Calcium Phosphorus Magnesium AST ALT Alkaline Phosphatase Lactate Dehydrogenase NT-Pro-B Natriuret Pep Total Protein Albumin Arterial Blood Glucose Arterial Blood Ionized Calcium Urine WBC (Auto) 24.0 H Vancomycin Trough Phenytoin Crossmatch 10/12/20 10/12/20 10/12/20 04:24 14:47 21:33 WBC RBC Hgb Hct MCV MCH MCHC RDW Plt Count Lymph % (Auto) [place] % (Auto) Lymph # (Auto) [place] # (Auto) Baso # (Auto) Seg Neutrophils % Seg Neuts % (Manual) Lymphocytes % (Manual) Monocytes % (Manual) Nucleated RBC % Seg Neutrophils # Seg Neutrophils # Man Lymphocytes # (Manual) Monocytes # (Manual) PT INR APTT Fibrinogen D-Dimer ABG pH POC ABG pCO2 POC ABG pO2 ABG pO2 ABG HCO3 ABG Base Excess ABG Hemoglobin ABG Oxyhemoglobin ABG Sodium ABG Potassium ABG Chloride ABG Glucose VBG pH Oxyhemoglobin Carboxyhemoglobin Sodium Potassium Chloride 109.9 H Carbon Dioxide 13 L BUN 18 H Creatinine Glucose 119 H POC Glucose 107 H Random Insulin C-Peptide Lactic Acid Calcium 7.6 L Ionized Calcium Phosphorus Magnesium 1.60 L AST ALT Alkaline Phosphatase Lactate Dehydrogenase NT-Pro-B Natriuret Pep Total Protein Albumin Arterial Blood Glucose Arterial Blood Ionized Calcium Urine WBC (Auto) Vancomycin Trough Phenytoin Crossmatch 10/12/20 10/12/20 10/13/20 Unknown Unknown 07:00 WBC 24.3 H RBC 3.38 L Hgb 9.8 L Hct MCV MCH MCHC RDW 18.7 H Plt Count Lymph % (Auto) [place] % (Auto) Lymph # (Auto) [place] # (Auto) Baso # (Auto) Seg Neutrophils % Seg Neuts % (Manual) 93.5 H Lymphocytes % (Manual) 4.5 L Monocytes % (Manual) Nucleated RBC % Seg Neutrophils # Seg Neutrophils # Man 22.7 H Lymphocytes # (Manual) 1.1 L Monocytes # (Manual) PT INR APTT Fibrinogen D-Dimer ABG pH POC ABG pCO2 POC ABG pO2 ABG pO2 ABG HCO3 ABG Base Excess ABG Hemoglobin ABG Oxyhemoglobin ABG Sodium ABG Potassium ABG Chloride ABG Glucose VBG pH Oxyhemoglobin Carboxyhemoglobin Sodium 135 L D Potassium 3.1 L Chloride Carbon Dioxide 17 L BUN Creatinine Glucose 510 H* POC Glucose Random Insulin C-Peptide Lactic Acid Calcium 7.2 L Ionized Calcium Phosphorus Magnesium AST ALT Alkaline Phosphatase Lactate Dehydrogenase NT-Pro-B Natriuret Pep Total Protein Albumin Arterial Blood Glucose Arterial Blood Ionized Calcium Urine WBC (Auto) Vancomycin Trough Phenytoin 5.7 L Crossmatch 10/13/20 10/13/20 10/13/20 07:00 07:00 07:18 WBC 23.6 H RBC 3.26 L Hgb 9.4 L Hct 28.7 L MCV MCH MCHC RDW 18.3 H Plt Count Lymph % (Auto) [place] % (Auto) Lymph # (Auto) [place] # (Auto) Baso # (Auto) Seg Neutrophils % Seg Neuts % (Manual) Lymphocytes % (Manual) Monocytes % (Manual) Nucleated RBC % Seg Neutrophils # Seg Neutrophils # Man Lymphocytes # (Manual) Monocytes # (Manual) PT INR APTT Fibrinogen D-Dimer ABG pH 7.473 H POC ABG pCO2 20.7 L POC ABG pO2 137.9 H ABG pO2 ABG HCO3 ABG Base Excess ABG Hemoglobin 11.2 L ABG Oxyhemoglobin 98.3 H ABG Sodium 135.9 L ABG Potassium ABG Chloride 111.0 H ABG Glucose 109 H VBG pH Oxyhemoglobin Carboxyhemoglobin 0.3 L Sodium 135 L Potassium 3.5 L Chloride 109.1 H Carbon Dioxide 18 L BUN Creatinine Glucose POC Glucose Random Insulin C-Peptide Lactic Acid Calcium 7.3 L Ionized Calcium Phosphorus Magnesium 1.60 L AST ALT Alkaline Phosphatase Lactate Dehydrogenase NT-Pro-B Natriuret Pep Total Protein Albumin Arterial Blood Glucose 109 H Arterial Blood Ionized Calcium Urine WBC (Auto) Vancomycin Trough Phenytoin Crossmatch 10/14/20 10/14/20 10/15/20 04:00 04:00 05:50 WBC 28.6 H 23.2 H RBC 3.61 L 3.43 L Hgb 9.9 L Hct 30.0 L MCV MCH MCHC RDW 18.3 H 18.2 H Plt Count Lymph % (Auto) [place] % (Auto) Lymph # (Auto) [place] # (Auto) Baso # (Auto) Seg Neutrophils % Seg Neuts % (Manual) 88.0 H 90.0 H Lymphocytes % (Manual) 5.0 L 4.0 L Monocytes % (Manual) Nucleated RBC % Seg Neutrophils # Seg Neutrophils # Man 25.2 H 20.9 H Lymphocytes # (Manual) 0.9 L Monocytes # (Manual) 1.4 H 0.9 H PT INR APTT Fibrinogen D-Dimer ABG pH POC ABG pCO2 POC ABG pO2 ABG pO2 ABG HCO3 ABG Base Excess ABG Hemoglobin ABG Oxyhemoglobin ABG Sodium ABG Potassium ABG Chloride ABG Glucose VBG pH Oxyhemoglobin Carboxyhemoglobin Sodium Potassium Chloride 109.9 H Carbon Dioxide 17 L BUN Creatinine Glucose POC Glucose Random Insulin C-Peptide Lactic Acid Calcium Ionized Calcium Phosphorus Magnesium AST ALT Alkaline Phosphatase Lactate Dehydrogenase NT-Pro-B Natriuret Pep Total Protein Albumin Arterial Blood Glucose Arterial Blood Ionized Calcium Urine WBC (Auto) Vancomycin Trough Phenytoin Crossmatch 10/15/20 10/16/20 10/17/20 05:50 11:57 04:57 WBC 15.2 H RBC 3.43 L Hgb Hct MCV MCH MCHC RDW 18.1 H Plt Count Lymph % (Auto) [place] % (Auto) Lymph # (Auto) [place] # (Auto) Baso # (Auto) Seg Neutrophils % Seg Neuts % (Manual) Lymphocytes % (Manual) Monocytes % (Manual) Nucleated RBC % Seg Neutrophils # Seg Neutrophils # Man Lymphocytes # (Manual) Monocytes # (Manual) PT INR APTT Fibrinogen D-Dimer ABG pH POC ABG pCO2 POC ABG pO2 ABG pO2 ABG HCO3 ABG Base Excess ABG Hemoglobin ABG Oxyhemoglobin ABG Sodium ABG Potassium ABG Chloride ABG Glucose VBG pH Oxyhemoglobin Carboxyhemoglobin Sodium Potassium Chloride 110.3 H Carbon Dioxide 18 L BUN Creatinine Glucose 105 H POC Glucose 111 H Random Insulin C-Peptide Lactic Acid Calcium 8.3 L Ionized Calcium Phosphorus Magnesium AST ALT Alkaline Phosphatase Lactate Dehydrogenase NT-Pro-B Natriuret Pep Total Protein Albumin Arterial Blood Glucose Arterial Blood Ionized Calcium Urine WBC (Auto) Vancomycin Trough Phenytoin Crossmatch 10/17/20 10/17/20 10/18/20 05:25 21:16 01:31 WBC RBC Hgb Hct MCV MCH MCHC RDW Plt Count Lymph % (Auto) [place] % (Auto) Lymph # (Auto) [place] # (Auto) Baso # (Auto) Seg Neutrophils % Seg Neuts % (Manual) Lymphocytes % (Manual) Monocytes % (Manual) Nucleated RBC % Seg Neutrophils # Seg Neutrophils # Man Lymphocytes # (Manual) Monocytes # (Manual) PT INR APTT Fibrinogen D-Dimer ABG pH POC ABG pCO2 POC ABG pO2 ABG pO2 ABG HCO3 ABG Base Excess ABG Hemoglobin ABG Oxyhemoglobin ABG Sodium ABG Potassium ABG Chloride ABG Glucose VBG pH Oxyhemoglobin Carboxyhemoglobin Sodium Potassium Chloride Carbon Dioxide BUN Creatinine Glucose POC Glucose 107 H 106 H 119 H Random Insulin C-Peptide Lactic Acid Calcium Ionized Calcium Phosphorus Magnesium AST ALT Alkaline Phosphatase Lactate Dehydrogenase NT-Pro-B Natriuret Pep Total Protein Albumin Arterial Blood Glucose Arterial Blood Ionized Calcium Urine WBC (Auto) Vancomycin Trough Phenytoin Crossmatch 10/18/20 10/18/20 10/19/20 05:45 11:23 01:14 WBC RBC Hgb Hct MCV MCH MCHC RDW Plt Count Lymph % (Auto) [place] % (Auto) Lymph # (Auto) [place] # (Auto) Baso # (Auto) Seg Neutrophils % Seg Neuts % (Manual) Lymphocytes % (Manual) Monocytes % (Manual) Nucleated RBC % Seg Neutrophils # Seg Neutrophils # Man Lymphocytes # (Manual) Monocytes # (Manual) PT INR APTT Fibrinogen D-Dimer ABG pH POC ABG pCO2 POC ABG pO2 ABG pO2 ABG HCO3 ABG Base Excess ABG Hemoglobin ABG Oxyhemoglobin ABG Sodium ABG Potassium ABG Chloride ABG Glucose VBG pH Oxyhemoglobin Carboxyhemoglobin Sodium Potassium Chloride Carbon Dioxide BUN Creatinine Glucose POC Glucose 106 H 115 H 108 H Random Insulin C-Peptide Lactic Acid Calcium Ionized Calcium Phosphorus Magnesium AST ALT Alkaline Phosphatase Lactate Dehydrogenase NT-Pro-B Natriuret Pep Total Protein Albumin Arterial Blood Glucose Arterial Blood Ionized Calcium Urine WBC (Auto) Vancomycin Trough Phenytoin Crossmatch 10/19/20 10/20/20 10/20/20 09:57 05:40 07:59 WBC RBC Hgb Hct MCV MCH MCHC RDW Plt Count Lymph % (Auto) [place] % (Auto) Lymph # (Auto) [place] # (Auto) Baso # (Auto) Seg Neutrophils % Seg Neuts % (Manual) Lymphocytes % (Manual) Monocytes % (Manual) Nucleated RBC % Seg Neutrophils # Seg Neutrophils # Man Lymphocytes # (Manual) Monocytes # (Manual) PT INR APTT Fibrinogen D-Dimer ABG pH POC ABG pCO2 POC ABG pO2 ABG pO2 ABG HCO3 ABG Base Excess ABG Hemoglobin ABG Oxyhemoglobin ABG Sodium ABG Potassium ABG Chloride ABG Glucose VBG pH Oxyhemoglobin Carboxyhemoglobin Sodium Potassium Chloride Carbon Dioxide BUN Creatinine Glucose 106 H POC Glucose 122 H 109 H Random Insulin C-Peptide Lactic Acid Calcium Ionized Calcium Phosphorus Magnesium AST ALT Alkaline Phosphatase Lactate Dehydrogenase NT-Pro-B Natriuret Pep Total Protein Albumin Arterial Blood Glucose Arterial Blood Ionized Calcium Urine WBC (Auto) Vancomycin Trough Phenytoin Crossmatch 10/20/20 10/20/20 10/21/20 16:52 16:52 13:54 WBC 18.8 H 17.0 H RBC Hgb Hct MCV MCH MCHC RDW 17.7 H 17.8 H Plt Count 547 H 544 H Lymph % (Auto) 11.2 L [place] % (Auto) 8.1 H Lymph # (Auto) [place] # (Auto) 1.5 H Baso # (Auto) 0.2 H Seg Neutrophils % 78.8 H Seg Neuts % (Manual) Lymphocytes % (Manual) Monocytes % (Manual) Nucleated RBC % Seg Neutrophils # 14.8 H Seg Neutrophils # Man Lymphocytes # (Manual) Monocytes # (Manual) PT INR APTT Fibrinogen D-Dimer ABG pH POC ABG pCO2 POC ABG pO2 ABG pO2 ABG HCO3 ABG Base Excess ABG Hemoglobin ABG Oxyhemoglobin ABG Sodium ABG Potassium ABG Chloride ABG Glucose VBG pH Oxyhemoglobin Carboxyhemoglobin Sodium Potassium Chloride Carbon Dioxide BUN Creatinine Glucose POC Glucose Random Insulin C-Peptide Lactic Acid Calcium Ionized Calcium Phosphorus Magnesium AST ALT Alkaline Phosphatase Lactate Dehydrogenase NT-Pro-B Natriuret Pep Total Protein Albumin Arterial Blood Glucose Arterial Blood Ionized Calcium Urine WBC (Auto) Vancomycin Trough 34.5 H Phenytoin Crossmatch 10/21/20 10/22/20 10/23/20 13:54 07:26 05:34 WBC 18.7 H 13.0 H RBC 3.64 L 3.50 L Hgb Hct 30.0 L MCV MCH MCHC 35 H RDW 17.7 H 17.6 H Plt Count 502 H 503 H Lymph % (Auto) [place] % (Auto) Lymph # (Auto) [place] # (Auto) Baso # (Auto) Seg Neutrophils % Seg Neuts % (Manual) Lymphocytes % (Manual) Monocytes % (Manual) Nucleated RBC % Seg Neutrophils # Seg Neutrophils # Man Lymphocytes # (Manual) Monocytes # (Manual) PT INR APTT Fibrinogen D-Dimer ABG pH POC ABG pCO2 POC ABG pO2 ABG pO2 ABG HCO3 ABG Base Excess ABG Hemoglobin ABG Oxyhemoglobin ABG Sodium ABG Potassium ABG Chloride ABG Glucose VBG pH Oxyhemoglobin Carboxyhemoglobin Sodium 136 L Potassium Chloride Carbon Dioxide BUN Creatinine Glucose 120 H POC Glucose Random Insulin C-Peptide Lactic Acid Calcium Ionized Calcium Phosphorus Magnesium AST ALT Alkaline Phosphatase Lactate Dehydrogenase NT-Pro-B Natriuret Pep Total Protein Albumin Arterial Blood Glucose Arterial Blood Ionized Calcium Urine WBC (Auto) Vancomycin Trough Phenytoin Crossmatch 10/23/20 10/26/20 10/27/20 05:34 10:30 07:53 WBC 13.6 H RBC 3.38 L Hgb 10.0 L Hct 28.8 L MCV MCH MCHC 35 H RDW 17.6 H Plt Count Lymph % (Auto) [place] % (Auto) Lymph # (Auto) [place] # (Auto) Baso # (Auto) Seg Neutrophils % Seg Neuts % (Manual) Lymphocytes % (Manual) Monocytes % (Manual) Nucleated RBC % Seg Neutrophils # Seg Neutrophils # Man Lymphocytes # (Manual) Monocytes # (Manual) PT INR APTT Fibrinogen D-Dimer ABG pH 7.459 H POC ABG pCO2 POC ABG pO2 ABG pO2 112.2 H ABG HCO3 ABG Base Excess ABG Hemoglobin ABG Oxyhemoglobin ABG Sodium ABG Potassium ABG Chloride ABG Glucose VBG pH Oxyhemoglobin Carboxyhemoglobin Sodium 135 L Potassium Chloride Carbon Dioxide BUN Creatinine Glucose 105 H POC Glucose Random Insulin C-Peptide Lactic Acid Calcium Ionized Calcium Phosphorus Magnesium AST ALT Alkaline Phosphatase Lactate Dehydrogenase NT-Pro-B Natriuret Pep Total Protein Albumin Arterial Blood Glucose Arterial Blood Ionized Calcium Urine WBC (Auto) Vancomycin Trough Phenytoin Crossmatch 10/27/20 10/27/20 10/28/20 07:53 11:31 05:19 WBC RBC Hgb Hct MCV MCH MCHC RDW Plt Count Lymph % (Auto) [place] % (Auto) Lymph # (Auto) [place] # (Auto) Baso # (Auto) Seg Neutrophils % Seg Neuts % (Manual) Lymphocytes % (Manual) Monocytes % (Manual) Nucleated RBC % Seg Neutrophils # Seg Neutrophils # Man Lymphocytes # (Manual) Monocytes # (Manual) PT INR APTT Fibrinogen D-Dimer ABG pH POC ABG pCO2 POC ABG pO2 ABG pO2 ABG HCO3 ABG Base Excess ABG Hemoglobin ABG Oxyhemoglobin ABG Sodium ABG Potassium ABG Chloride ABG Glucose VBG pH Oxyhemoglobin Carboxyhemoglobin Sodium Potassium Chloride Carbon Dioxide BUN 20 H Creatinine Glucose 112 H POC Glucose 113 H 112 H Random Insulin C-Peptide Lactic Acid Calcium Ionized Calcium Phosphorus Magnesium AST 83 H ALT Alkaline Phosphatase Lactate Dehydrogenase NT-Pro-B Natriuret Pep Total Protein Albumin 3.8 L Arterial Blood Glucose Arterial Blood Ionized Calcium Urine WBC (Auto) Vancomycin Trough Phenytoin Crossmatch 10/29/20 10/29/20 10/29/20 07:56 07:56 11:37 WBC 13.6 H RBC Hgb Hct MCV MCH MCHC RDW 17.0 H Plt Count Lymph % (Auto) [place] % (Auto) Lymph # (Auto) [place] # (Auto) Baso # (Auto) Seg Neutrophils % Seg Neuts % (Manual) 80.0 H Lymphocytes % (Manual) Monocytes % (Manual) Nucleated RBC % Seg Neutrophils # Seg Neutrophils # Man 10.9 H Lymphocytes # (Manual) Monocytes # (Manual) PT INR APTT Fibrinogen D-Dimer ABG pH POC ABG pCO2 POC ABG pO2 ABG pO2 ABG HCO3 ABG Base Excess ABG Hemoglobin ABG Oxyhemoglobin ABG Sodium ABG Potassium ABG Chloride ABG Glucose VBG pH Oxyhemoglobin Carboxyhemoglobin Sodium Potassium Chloride Carbon Dioxide BUN Creatinine Glucose POC Glucose 108 H Random Insulin C-Peptide Lactic Acid Calcium Ionized Calcium Phosphorus 4.70 H Magnesium AST ALT Alkaline Phosphatase Lactate Dehydrogenase NT-Pro-B Natriuret Pep Total Protein Albumin Arterial Blood Glucose Arterial Blood Ionized Calcium Urine WBC (Auto) Vancomycin Trough Phenytoin Crossmatch 10/29/20 10/30/20 10/30/20 13:32 12:11 17:19 WBC RBC Hgb Hct MCV MCH MCHC RDW Plt Count Lymph % (Auto) [place] % (Auto) Lymph # (Auto) [place] # (Auto) Baso # (Auto) Seg Neutrophils % Seg Neuts % (Manual) Lymphocytes % (Manual) Monocytes % (Manual) Nucleated RBC % Seg Neutrophils # Seg Neutrophils # Man Lymphocytes # (Manual) Monocytes # (Manual) PT INR APTT Fibrinogen D-Dimer ABG pH POC ABG pCO2 POC ABG pO2 ABG pO2 ABG HCO3 ABG Base Excess ABG Hemoglobin ABG Oxyhemoglobin ABG Sodium ABG Potassium ABG Chloride ABG Glucose VBG pH Oxyhemoglobin Carboxyhemoglobin Sodium Potassium Chloride Carbon Dioxide BUN Creatinine Glucose POC Glucose 108 H 106 H 107 H Random Insulin C-Peptide Lactic Acid Calcium Ionized Calcium Phosphorus Magnesium AST ALT Alkaline Phosphatase Lactate Dehydrogenase NT-Pro-B Natriuret Pep Total Protein Albumin Arterial Blood Glucose Arterial Blood Ionized Calcium Urine WBC (Auto) Vancomycin Trough Phenytoin Crossmatch 10/31/20 10/31/20 11/01/20 03:20 05:43 04:55 WBC RBC Hgb Hct MCV MCH MCHC RDW Plt Count Lymph % (Auto) [place] % (Auto) Lymph # (Auto) [place] # (Auto) Baso # (Auto) Seg Neutrophils % Seg Neuts % (Manual) Lymphocytes % (Manual) Monocytes % (Manual) Nucleated RBC % Seg Neutrophils # Seg Neutrophils # Man Lymphocytes # (Manual) Monocytes # (Manual) PT INR APTT Fibrinogen D-Dimer ABG pH POC ABG pCO2 POC ABG pO2 ABG pO2 ABG HCO3 ABG Base Excess ABG Hemoglobin ABG Oxyhemoglobin ABG Sodium ABG Potassium ABG Chloride ABG Glucose VBG pH Oxyhemoglobin Carboxyhemoglobin Sodium Potassium Chloride Carbon Dioxide BUN Creatinine Glucose POC Glucose 108 H 115 H 108 H Random Insulin C-Peptide Lactic Acid Calcium Ionized Calcium Phosphorus Magnesium AST ALT Alkaline Phosphatase Lactate Dehydrogenase NT-Pro-B Natriuret Pep Total Protein Albumin Arterial Blood Glucose Arterial Blood Ionized Calcium Urine WBC (Auto) Vancomycin Trough Phenytoin Crossmatch 11/01/20 11/01/20 11/01/20 05:01 16:47 21:36 WBC RBC Hgb Hct MCV MCH MCHC RDW Plt Count Lymph % (Auto) [place] % (Auto) Lymph # (Auto) [place] # (Auto) Baso # (Auto) Seg Neutrophils % Seg Neuts % (Manual) Lymphocytes % (Manual) Monocytes % (Manual) Nucleated RBC % Seg Neutrophils # Seg Neutrophils # Man Lymphocytes # (Manual) Monocytes # (Manual) PT INR APTT Fibrinogen D-Dimer ABG pH POC ABG pCO2 POC ABG pO2 ABG pO2 ABG HCO3 ABG Base Excess ABG Hemoglobin ABG Oxyhemoglobin ABG Sodium ABG Potassium ABG Chloride ABG Glucose VBG pH Oxyhemoglobin Carboxyhemoglobin Sodium 135 L Potassium Chloride Carbon Dioxide BUN Creatinine Glucose POC Glucose 116 H 112 H Random Insulin C-Peptide Lactic Acid Calcium Ionized Calcium Phosphorus Magnesium AST 93 H ALT Alkaline Phosphatase 132 H Lactate Dehydrogenase NT-Pro-B Natriuret Pep Total Protein Albumin 3.6 L Arterial Blood Glucose Arterial Blood Ionized Calcium Urine WBC (Auto) Vancomycin Trough Phenytoin Crossmatch 11/02/20 11/02/20 11/02/20 17:45 19:19 19:19 WBC RBC Hgb Hct MCV MCH MCHC RDW Plt Count Lymph % (Auto) [place] % (Auto) Lymph # (Auto) [place] # (Auto) Baso # (Auto) Seg Neutrophils % Seg Neuts % (Manual) Lymphocytes % (Manual) Monocytes % (Manual) Nucleated RBC % Seg Neutrophils # Seg Neutrophils # Man Lymphocytes # (Manual) Monocytes # (Manual) PT INR APTT Fibrinogen D-Dimer ABG pH POC ABG pCO2 POC ABG pO2 ABG pO2 ABG HCO3 ABG Base Excess ABG Hemoglobin ABG Oxyhemoglobin ABG Sodium ABG Potassium ABG Chloride ABG Glucose VBG pH Oxyhemoglobin Carboxyhemoglobin Sodium Potassium Chloride Carbon Dioxide BUN Creatinine Glucose POC Glucose 107 H Random Insulin 43.2 H C-Peptide 6.23 H Lactic Acid Calcium Ionized Calcium Phosphorus Magnesium AST ALT Alkaline Phosphatase Lactate Dehydrogenase NT-Pro-B Natriuret Pep Total Protein Albumin Arterial Blood Glucose Arterial Blood Ionized Calcium Urine WBC (Auto) Vancomycin Trough Phenytoin Crossmatch 11/03/20 11/04/20 11/04/20 21:49 05:00 05:00 WBC 13.8 H RBC Hgb Hct MCV MCH MCHC RDW 16.6 H Plt Count Lymph % (Auto) 11.8 L [place] % (Auto) 11.0 H Lymph # (Auto) [place] # (Auto) 1.5 H Baso # (Auto) Seg Neutrophils % 75.1 H Seg Neuts % (Manual) Lymphocytes % (Manual) Monocytes % (Manual) Nucleated RBC % Seg Neutrophils # 10.4 H Seg Neutrophils # Man Lymphocytes # (Manual) Monocytes # (Manual) PT INR APTT Fibrinogen D-Dimer ABG pH POC ABG pCO2 POC ABG pO2 ABG pO2 ABG HCO3 ABG Base Excess ABG Hemoglobin ABG Oxyhemoglobin ABG Sodium ABG Potassium ABG Chloride ABG Glucose VBG pH Oxyhemoglobin Carboxyhemoglobin Sodium Potassium Chloride Carbon Dioxide BUN Creatinine Glucose 112 H POC Glucose 109 H Random Insulin C-Peptide Lactic Acid Calcium Ionized Calcium Phosphorus Magnesium AST 90 H ALT Alkaline Phosphatase Lactate Dehydrogenase NT-Pro-B Natriuret Pep Total Protein Albumin 3.8 L Arterial Blood Glucose Arterial Blood Ionized Calcium Urine WBC (Auto) Vancomycin Trough Phenytoin Crossmatch 11/04/20 11/04/20 11/05/20 06:03 23:47 07:47 WBC RBC Hgb Hct MCV MCH MCHC RDW Plt Count Lymph % (Auto) [place] % (Auto) Lymph # (Auto) [place] # (Auto) Baso # (Auto) Seg Neutrophils % Seg Neuts % (Manual) Lymphocytes % (Manual) Monocytes % (Manual) Nucleated RBC % Seg Neutrophils # Seg Neutrophils # Man Lymphocytes # (Manual) Monocytes # (Manual) PT INR APTT Fibrinogen D-Dimer ABG pH POC ABG pCO2 POC ABG pO2 ABG pO2 ABG HCO3 ABG Base Excess ABG Hemoglobin ABG Oxyhemoglobin ABG Sodium ABG Potassium ABG Chloride ABG Glucose VBG pH Oxyhemoglobin Carboxyhemoglobin Sodium Potassium Chloride Carbon Dioxide BUN Creatinine Glucose POC Glucose 107 H 121 H 111 H Random Insulin C-Peptide Lactic Acid Calcium Ionized Calcium Phosphorus Magnesium AST ALT Alkaline Phosphatase Lactate Dehydrogenase NT-Pro-B Natriuret Pep Total Protein Albumin Arterial Blood Glucose Arterial Blood Ionized Calcium Urine WBC (Auto) Vancomycin Trough Phenytoin Crossmatch 11/05/20 11/06/20 11/06/20 23:24 17:04 23:36 WBC RBC Hgb Hct MCV MCH MCHC RDW Plt Count Lymph % (Auto) [place] % (Auto) Lymph # (Auto) [place] # (Auto) Baso # (Auto) Seg Neutrophils % Seg Neuts % (Manual) Lymphocytes % (Manual) Monocytes % (Manual) Nucleated RBC % Seg Neutrophils # Seg Neutrophils # Man Lymphocytes # (Manual) Monocytes # (Manual) PT INR APTT Fibrinogen D-Dimer ABG pH POC ABG pCO2 POC ABG pO2 ABG pO2 ABG HCO3 ABG Base Excess ABG Hemoglobin ABG Oxyhemoglobin ABG Sodium ABG Potassium ABG Chloride ABG Glucose VBG pH Oxyhemoglobin Carboxyhemoglobin Sodium Potassium Chloride Carbon Dioxide BUN Creatinine Glucose POC Glucose 111 H 112 H 108 H Random Insulin C-Peptide Lactic Acid Calcium Ionized Calcium Phosphorus Magnesium AST ALT Alkaline Phosphatase Lactate Dehydrogenase NT-Pro-B Natriuret Pep Total Protein Albumin Arterial Blood Glucose Arterial Blood Ionized Calcium Urine WBC (Auto) Vancomycin Trough Phenytoin Crossmatch 11/07/20 11/07/20 11/07/20 03:33 04:44 04:44 WBC RBC Hgb Hct MCV MCH MCHC RDW 16.6 H Plt Count Lymph % (Auto) [place] % (Auto) 13.1 H Lymph # (Auto) [place] # (Auto) 1.3 H Baso # (Auto) Seg Neutrophils % Seg Neuts % (Manual) Lymphocytes % (Manual) Monocytes % (Manual) Nucleated RBC % Seg Neutrophils # Seg Neutrophils # Man Lymphocytes # (Manual) Monocytes # (Manual) PT INR APTT Fibrinogen D-Dimer ABG pH POC ABG pCO2 POC ABG pO2 ABG pO2 ABG HCO3 ABG Base Excess ABG Hemoglobin ABG Oxyhemoglobin ABG Sodium ABG Potassium ABG Chloride ABG Glucose VBG pH Oxyhemoglobin Carboxyhemoglobin Sodium Potassium Chloride Carbon Dioxide BUN Creatinine Glucose 103 H POC Glucose 109 H Random Insulin C-Peptide Lactic Acid Calcium Ionized Calcium Phosphorus 5.30 H Magnesium AST ALT Alkaline Phosphatase Lactate Dehydrogenase NT-Pro-B Natriuret Pep Total Protein Albumin Arterial Blood Glucose Arterial Blood Ionized Calcium Urine WBC (Auto) Vancomycin Trough Phenytoin Crossmatch 11/07/20 11/07/20 11/08/20 15:58 23:46 07:30 WBC RBC Hgb Hct MCV MCH MCHC RDW Plt Count Lymph % (Auto) [place] % (Auto) Lymph # (Auto) [place] # (Auto) Baso # (Auto) Seg Neutrophils % Seg Neuts % (Manual) Lymphocytes % (Manual) Monocytes % (Manual) Nucleated RBC % Seg Neutrophils # Seg Neutrophils # Man Lymphocytes # (Manual) Monocytes # (Manual) PT INR APTT Fibrinogen D-Dimer ABG pH POC ABG pCO2 POC ABG pO2 ABG pO2 ABG HCO3 ABG Base Excess ABG Hemoglobin ABG Oxyhemoglobin ABG Sodium ABG Potassium ABG Chloride ABG Glucose VBG pH Oxyhemoglobin Carboxyhemoglobin Sodium Potassium Chloride Carbon Dioxide BUN Creatinine Glucose POC Glucose 108 H 106 H 109 H Random Insulin C-Peptide Lactic Acid Calcium Ionized Calcium Phosphorus Magnesium AST ALT Alkaline Phosphatase Lactate Dehydrogenase NT-Pro-B Natriuret Pep Total Protein Albumin Arterial Blood Glucose Arterial Blood Ionized Calcium Urine WBC (Auto) Vancomycin Trough Phenytoin Crossmatch 11/08/20 11/08/20 11:48 23:32 WBC RBC Hgb Hct MCV MCH MCHC RDW Plt Count Lymph % (Auto) [place] % (Auto) Lymph # (Auto) [place] # (Auto) Baso # (Auto) Seg Neutrophils % Seg Neuts % (Manual) Lymphocytes % (Manual) Monocytes % (Manual) Nucleated RBC % Seg Neutrophils # Seg Neutrophils # Man Lymphocytes # (Manual) Monocytes # (Manual) PT INR APTT Fibrinogen D-Dimer ABG pH POC ABG pCO2 POC ABG pO2 ABG pO2 ABG HCO3 ABG Base Excess ABG Hemoglobin ABG Oxyhemoglobin ABG Sodium ABG Potassium ABG Chloride ABG Glucose VBG pH Oxyhemoglobin Carboxyhemoglobin Sodium Potassium Chloride Carbon Dioxide BUN Creatinine Glucose POC Glucose 110 H 116 H Random Insulin C-Peptide Lactic Acid Calcium Ionized Calcium Phosphorus Magnesium AST ALT Alkaline Phosphatase Lactate Dehydrogenase NT-Pro-B Natriuret Pep Total Protein Albumin Arterial Blood Glucose Arterial Blood Ionized Calcium Urine WBC (Auto) Vancomycin Trough Phenytoin Crossmatch
--- NOTE | 2020-11-09 14:40 | Progress Note ---
Assessment and Plan Cultures: 10/05/2020 Blood culture: no growth 10/11/2020 blood culture: No growth 10/11/2020 tracheal aspirate: Usual respiratory jaylan 10/14/2020 blood culture: Enterobacter, coag negative staph. Sensitivities in "scanned reports" 10/15/2020 blood culture: negative 11/02/2020 blood cultures no growth 11/06/2020 blood culture no growth today A/P: 30-year-old female with GERD, hypertension, seizure disorder was admitted to the hospital at 36 weeks with seizures. She became hypoxic and pulseless requiring CPR. Following emergent section, patient developed hemorrhage, DIC. She has been admitted to ICU, remains on the vent: #Intermittent fever: Initially due to Enterobacter bacteremia. Now with new fever likely due to herpes genitalis. #Extensive herpes genitalis: Perianal and vaginal #Recent Enterobacter bacteremia: Treated #Status post arrest 10/07/2020: Apparently had a brief code due to ?ET tube clot/plugging. #Initial shock, DIC/persistent fever: Secondary to hemorrhage, ?possible sepsis. Possible pneumonia versus fluid overload. ?Central fever v/s from VTE. Noted diarrhea ? Cdiff + #Acute kidney injury: resolved #Acute respiratory failure: remains on the vent. now has trach #Transaminitis: ?HELLP. #Preeclampsia # hemorrhage: Status post , status post supracervical hysterectomy. #Encephalopathy post cardiac arrest #C. difficile: Completed PO vancomycin Recs: -Completed acyclovir 10 mg/kg IV every 8 hours for 48 hours, -Continue p.o. Valtrex 1 g twice daily for 5 days later -Wound care consultation Monitor fever Violette Dejesus MD [facility] ([facility]) Office [phone] Subjective Date of service: 11/09/20 Principal diagnosis: Eclampsia/HELLP Syndrome, ADOLPH, DIC; s/p , s/p supracervical hyst Interval history: Isolated low-grade fever, nonverbal, does not follow commands c Objective - Exam Narrative Exam: General appearance: Unresponsive Eyes: anicteric sclerae, moist conjunctivae; no lid-lag; PERRLA HENT: Normocephalic, Atraumatic; normal external ears, nares open, oropharynx limited rectal tube in place Neck: supple, tracheal midline, no JVD Lungs: Coarse breath sounds bilaterally CV: RRR no murmur Abdomen: Soft, wound with dressing Extremities: no edema, no cyanosis Skin: Extensive clusters of blisters perianal, vaginal area improving Psych: Unresponsive Neuro: Unresponsive - Constitutional Vitals: Vital Signs Temp Pulse Resp BP Pulse Ox 99.4 F 102 H 23 128/59 100 11/09/20 12:00 11/09/20 12:00 11/09/20 12:00 11/09/20 12:00 11/09/20 13:37 Temperature -Last 24 Hours Temperature 99.4 F Temperature 99.4 F Temperature 99.2 F Temperature 98.8 F Temperature 100.2 F Temperature 98.6 F - Labs CBC & Chem 7: 11/07/20 04:44 11/07/20 04:44 Labs: Abnormal lab results 11/08/20 Range/Units 23:32 POC Glucose 116 H (70-105) mg/dL
[2020-11-09] MEDS: valACYclovir 500 MG TAB PO SCH ×2 (16:05→21:00)
[2020-11-09] MEDS: ACETAMINOPHEN 325 MG/10.15 ML ORAL LIQD UNIT DOSE FEEDTUBE PRN (20:58)
--- NOTE | 2020-11-10 01:19 | Progress Note ---
Assessment and Plan Critical care statement The high probability of a clinically significant, sudden or life threatening deterioration of the [MULTIPLE ORGAN] system(s) required my full and direct attention, intervention and personal management. The aggregate critical care time was [33] minutes. This time is in addition to time spent performing reported procedures but includes the following: [X] Data Review and interpretation [X] Patient assessment and monitoring of vital signs [X] Documentation [X] Medication orders and management Assessment and plan --Acute hypoxic respiratory failure: Tracheostomy on T-piece , 5 L oxygen, saturating 100% Nebulizers, continue oxygen titrate O2 sats to more than 90% Pulmonary critical following --Sepsis; received antibiotics Continue to monitor off antibiotics ID following --Cardiac arrest; 10/07/2020 ,status post CPR --COVID-19 test negative; 10/08/2020 --C. difficile colitis test; positive; 10/16/2020 --Acute metabolic encephalopathy --Acute hypoxic brain injury; Supportive care, closely monitor --Acute kidney injury; vasomotor nephropathy Resolved, renal function within normal limits, closely monitor --Shock; monitor of pressors Blood pressures reasonable level --DIC; sepsis, septic shock, resolved --History of preeclampsia; / hemorrhage Status post hysterectomy --History of C. difficile colitis; completed oral vancomycin --DVT/SVT and right upper extremity Very poor prognosis, Consults recommendations noted and appreciated We will closely monitor the patient and adjust management as needed Plan of care reviewed with the patient's nurse. Subjective Date of service: 11/09/20 Principal diagnosis: Eclampsia/HELLP Syndrome, ADOLPH, DIC; s/p , s/p supracervical hyst Interval history: 30 y/o female patient with Eclampsia/help syndrome, s/p emergent section with DIC, hemorrhage, supracervical abdominal hysterectomy, acute respiratory failure , tracheostomy on T-piece with morbid obesity, s/p cardiac arrest 12/08/2019 status post CPR per ACLS, acute hypoxic brain injury Acute kidney injury improved, severe shock requiring pressors, DIC septic shock improved, history of C. difficile colitis on vancomycin. Tracheostomy on T-piece, continues to require 5 L of oxygen. Brief history; 30 year old -[place] female CHE 10/25/20 at 36w5d who presents with seizures in triage on 10/02/20. Pt was not able to provide history but per pt's , she presented to the hospital to return a 24 hour urine specimen for analysis. She then suddenly reported that she did not feel good. She was taken to labor and delivery and shortly after arrival, she began seizing. During this time, a code met was called because the patient became hypoxic. She was then noted to be without a pulse. Chest compressions were started immediately, and the patient was emergently taken to the operating room for delivery of the fetus. Off note, This patient has had care at [facility] with comanagement by [facility] since 11 wks complicated by ADHD, morbid obesity, generalized anxiety disorder, panic attacks, chronic narcotic use, fibromyalgia, GERD, Irritable Bowel Syndrome, Migraines, h/o endometrial ablation and ovarian vein embolization, genital herpes, insomnia, LGA fetus, nausea and vomiting, polyhydramnios, quad screen positive for Down's Syndrome, and previous x 3. She is GBS negative. , Patient tracheostomy on ventilatory support, unable to wean, continue supportive care poor prognosis 11:30: Pt brought to L&D triage for evaluation of possible labor. Pt accompanied by her spouse. Pt spouse poor historian; unable to obtain history- allergies at this time. Pt taken from registration to triage area via WC. Pt unresponsive, actively seizing with snorous respirations. frame sample and pattern supervisor, Kassy, called and requesting assistance. 11:35: Multiple staff at bedside. Pt 02 sat 67% on nonrebreather, unable to read BP . Yifan Theodore CRNA, at bedside for intubation and assistance with IV insertion. INT attempt by multiple RNs unsuccessful at this time. 11:42: Pt being bagged by KORIN, 02% 79%. No pulse palpated, compressions on at this time; bharati young called and Dr. Newberry preparing OR for emergent c/s. 11:44: Continued compressions on stretcher while transporting pt to OR 1. Pt being bagged with jaw thrust manuever in place by KORIN Stringer student. 11:45: Arrival to OR 1. Dr. Newberry and Dr. Portillo present for emergent c/s. Code team arrived for continued care. patient revived and c/s done Patient has been bleeding from C/s site followed by supracervical hysterectomy for severe bleeding, Patient transfused multiple units of PRBC, Patient in DIC. Patient transferred to the ICU Hospital course; 10/03. Patient seen and examined at bedside this morning. Patient is nonresponsive and mechanically ventilated. On pressors. Labs reviewed-has leukocytosis, anemia, thrombocytopenia, ADOLPH and lactic acidosis. Started on IV antibiotics to cover possible sepsis secondary to DIC. Hematology oncology recommendations appreciated-needs additional cryoprecipitate and FFP. Monitor D-dimer, fibrinogen and frequent labs. Nephrology consulted for lactic acidosis and ADOLPH. 10/04. Remains mechanically ventilated. Kevin antibiotics. Labs shows improved acidosis - lactic acid 3.5. Hb drop noted. Getting transfused 2 units PRBCs. Platelet count is ~40k. Continue to monitor labs closely. Critical care team on board. 10/05; xray reviewed, concerning for multifocal infilrate, likely underlying Pneumonia, will add ID consult to assist with management of this critically ill patient, start tube feed, closely monitor renal system 10/06: Resumed care, remains on mechanical ventilation. No active bleeding, H&H stable. Continue to monitor CBC and BMP. Continue IV antibiotic for underlying pneumonia. Follow critical care and ID recommendation. 10/07: Remains on mechanical ventilation. No active bleeding, H&H stable. Critical care following, wean off ventilation as tolerated. 10/08: Patient had another cardiac arrest last night. Remains on mechanical ventilation, update family. Continue supportive care -poor prognosis 10/09: Called patient mother and discussed about patient care and management. Answered all question to best of my knowledge and family satisfaction. Patient remains on mechanical ventilation, cardiac arrest x2 so far. Critically sick, poor prognosis 10/10: remains on mechanical ventilation. h/h stable, no active bleeding. monitor CBC/BMP 10/11: WBC trended up with diarrhea, started on vancomycin po. remains on MV, off pressor, tolerating TF 10/12: remains on MV, off pressor, tolerating TF. called family for update but unable to reach, could not leave message as it was full. cont supportive care, wean off vent as tolerated. 10/13/2020; patient is on mechanical ventilation, tolerating tube feeding. Patient has labored breathing. Neuro was consulted and recommend MRI. Patient is on Precedex. Rectal tube in place. 10/14/2020; patient is on mechanical ventilation, Precedex. Patient had fever and blood culture ordered. Patient is on IV vancomycin per ID recommendation. Neuro consulted and recommend MRI. Continue to monitor. Prognosis is guarded. 10/15/2020; patient is on mechanical ventilation, Precedex. Patient had fever and blood culture ordered. Patient is on IV vancomycin per ID recommendation. Neuro consulted and recommend MRI. Continue to monitor. Prognosis is guarded. 10/17: Remains with C.DIFF and Bactermia, Poor prognosis. No purposeful movement. MRI and EEG discussed with Intensvisit, Continue aggressive BP control. 10/18: Blood pressure better controlled MRI done 10/15 shows mild improvement in edema. We will continue to monitor mother was at bedside yesterday. Nursing documentation trach and PEG discussed with the mother including goals of care. She is still in denial about the gravity of her daughters her condition which is understandable considering her age. Continue aggressive management at this time. Await for bacteremia to clear by ID before placing PICC line. 10/19: Patient for possible PEG and Trach, ID following, repeat cultures remain negative. Poor prognosis 10/20: Pt noted to DVT and SVT in the RUE, Vascular consult and will also obtain Hematology for possible considering changing in Anticoagulation. CONTINUE TO MONITOR H/H and PLT. Family updated by [employer]. Heparin gtt started. Will check CBC and BMP 10/21: Continue supporive care, Diarrhea now resolving, But still with persistent Fever, May need repeat CT/AP per ID, still with profused Encephalopathy 10/22: Continue supportive care, weaning, awaiting repeat Imaging. FOLLOW Fever curve. Enoxparin restarted 10/23: Continue supportive care, wean as tolerated. 10/24; Started on CPAP trial, discussed with pulmonary, still with diarrhea. 10/25: Patients seen and examined, no clinical changes, still with diarrhea. ?meaningful recovery. 10/26: Clinically unchanged, continue CPAP trial, Will discuss with Neurology about re-evaluation, ?Need for repeat CT head. ?PRESS considering initial elevated BP, now stable. 10/27; tracheostomy on vent, weaning trials, vital signs noted, poor prognosis 10/28; unable to wean, tracheostomy on vent. Sepsis. Continue current management. Consults and recommendations noted and appreciated 10/30/2020;Patient on T-piece 5 L of oxygen not in acute distress, noncommunicative 11/02/2020; patient on T-piece 5 L of oxygen 11/03/2020; patient's fever slightly improved low-grade, continue current management, remains on T-piece with 5 L of oxygen 11/04/2020; T-max last 24 hours 100.3 F, new cultures negative to date, monitor off antibiotics Patient is off Levophed, blood pressures reasonable level, tracheostomy on T- piece 3 to 5 L nasal cannula oxygen 11/05/2020; tracheostomy on T-piece patient remains on 5 L of nasal cannula oxygen, unresponsive severe hypoxic brain injury I called patient's mother Ms. Pamela Bassett as well as patient's spouse Mr. Danilo Dimas at [phone] unable to reach them Left voicemail on Ms. Pamela Bassettz phone and encouraged him to call back 11/06/2020; I tried to call again today Ms. Pamela Bassett to discuss patient's condition and treatment plan and update consultants recommendations and patient's prognosis., unable to reach her 11/07/20 Will try LTAC/Hospice 11/08/20 Same condition 11/09/20 Will try hospice/LTAC I will call patient's spouse and patient's mother to update on patient's condition today Objective - Exam Narrative Exam: Patient intubated - Constitutional Vitals: Vital Signs - 12hr 11/09/20 11/09/20 11/09/20 13:31 13:37 14:00 Temperature Pulse Rate 107 H 106 H Respiratory 23 20 Rate Blood Pressure 110/73 115/69 O2 Sat by Pulse 100 100 Oximetry O2 Sat by Pulse 100 Oximetry [ Assessment] 11/09/20 11/09/20 11/09/20 14:31 15:00 15:30 Temperature Pulse Rate 108 H 104 H 107 H Respiratory 20 15 12 Rate Blood Pressure 130/52 128/48 135/51 O2 Sat by Pulse 100 100 100 Oximetry O2 Sat by Pulse Oximetry [ Assessment] 11/09/20 11/09/20 11/09/20 16:00 16:05 16:30 Temperature 99.0 F Pulse Rate 108 H 108 H 106 H Respiratory 16 25 H Rate Blood Pressure 108/66 135/51 126/73 O2 Sat by Pulse 100 100 Oximetry O2 Sat by Pulse Oximetry [ Assessment] 11/09/20 11/09/20 11/09/20 17:00 17:30 18:00 Temperature Pulse Rate 103 H 96 H 102 H Respiratory 23 25 H 18 Rate Blood Pressure 126/73 121/70 128/68 O2 Sat by Pulse 100 100 100 Oximetry O2 Sat by Pulse Oximetry [ Assessment] 11/09/20 11/09/20 11/09/20 18:30 19:00 19:14 Temperature Pulse Rate 104 H 109 H 109 H Respiratory 18 34 H Rate Blood Pressure 135/71 137/69 O2 Sat by Pulse 100 100 Oximetry O2 Sat by Pulse Oximetry [ Assessment] 11/09/20 11/09/20 11/09/20 19:30 20:00 20:30 Temperature 99.2 F Pulse Rate 109 H 110 H 103 H Respiratory 26 H 24 28 H Rate Blood Pressure 130/77 126/82 119/69 O2 Sat by Pulse 100 100 100 Oximetry O2 Sat by Pulse Oximetry [ Assessment] 11/09/20 11/09/20 11/09/20 20:57 20:58 21:00 Temperature Pulse Rate 88 90 Respiratory 16 20 Rate Blood Pressure 119/69 112/60 O2 Sat by Pulse 100 Oximetry O2 Sat by Pulse Oximetry [ Assessment] 11/09/20 11/09/20 11/09/20 21:10 21:11 21:30 Temperature Pulse Rate 96 H Respiratory 33 H Rate Blood Pressure 110/43 O2 Sat by Pulse 99 100 Oximetry O2 Sat by Pulse 99 Oximetry [ Assessment] 11/09/20 11/09/20 11/09/20 21:58 22:00 22:30 Temperature Pulse Rate 90 86 Respiratory 20 24 19 Rate Blood Pressure 100/47 106/48 O2 Sat by Pulse 100 100 Oximetry O2 Sat by Pulse Oximetry [ Assessment] 11/09/20 11/09/20 11/09/20 23:00 23:13 23:30 Temperature Pulse Rate 82 91 H 84 Respiratory 19 15 Rate Blood Pressure 105/52 102/49 O2 Sat by Pulse 100 100 Oximetry O2 Sat by Pulse Oximetry [ Assessment] General appearance: Present: no acute distress, well-nourished - EENT Eyes: PERRL, EOM intact ENT: hearing intact, clear oral mucosa Ears: bilateral: normal - Neck Neck: supple, normal ROM - Respiratory Respiratory effort: normal Respiratory: bilateral: CTA - Breasts Breasts: normal - Cardiovascular Heart rate: 78 Rhythm: regular Heart Sounds: Present: S1 & S2. Absent: gallop, rub Extremities: pulses intact, No edema, normal color, Full ROM - Gastrointestinal General gastrointestinal: Present: soft, non-tender, non-distended, normal bowel sounds - Genitourinary Female genitourinary: normal - Integumentary Integumentary: clear, warm, dry - Musculoskeletal Musculoskeletal: generalized weakness - Psychiatric Psychiatric: other (Unresponsive) - Labs CBC & Chem 7: 11/07/20 04:44 11/07/20 04:44 Labs: Abnormal lab results 11/09/20 11/09/20 Range/Units 17:10 21:42 POC Glucose 112 H 110 H (70-105) mg/dL HEART Score - HEART Score Age: < 45 Risk factors: 1-2 risk factors - Critical Actions Critical Actions: >7 pts:50-65% risk of adverse cardiac event. Early invasive measures
[2020-11-10] MEDS: DEXTROSE 10% IN WATER 1,000 ML IV SCH ×2 (05:57→18:26)
[2020-11-10] MEDS: hydrALAZINE 25 MG TAB PO SCH ×3 (05:58→21:59)
[2020-11-10] MEDS: ACETAMINOPHEN 325 MG/10.15 ML ORAL LIQD UNIT DOSE FEEDTUBE PRN (05:59)
--- NOTE | 2020-11-10 07:49 | Progress Note ---
Assessment and Plan - Patient Problems (1) Encephalopathy Current Visit: Yes Status: Acute Plan to address problem: remains without any purposeful response continue supportive care (2) Fever Current Visit: Yes Status: Acute Subjective - Subjective Date of service: 11/10/20 Principal diagnosis: Eclampsia/HELLP Syndrome, ADOLPH, DIC; s/p , s/p supracervical hyst Interval history: 30y/o s/p supracervical hysterectomy for eclampsia and DIC. Patient remains unresponsive. Tracheostomy and PEG tube in place. Objective - Vital Signs Latest vital signs: Vital Signs Temp Pulse Resp BP Pulse Ox Pulse Ox 11/10/20 07:46 89 11/10/20 07:00 87 20 113/47 100 11/10/20 06:59 21 11/10/20 06:30 100 H 22 116/50 100 11/10/20 06:00 96 H 16 111/49 100 11/10/20 05:59 23 11/10/20 05:58 102 H 116/67 11/10/20 05:30 88 14 116/67 100 11/10/20 05:00 92 H 20 136/70 100 11/10/20 04:46 84 11/10/20 04:30 99 H 21 106/44 11/10/20 04:00 108/61 100 11/10/20 03:54 100 11/10/20 03:38 99.5 F 11/10/20 03:30 105 H 16 113/54 100 11/10/20 03:00 88 19 111/62 100 11/10/20 02:30 107 H 31 H 106/66 100 11/10/20 02:00 104 H 26 H 106/66 100 11/10/20 01:30 92 H 17 101/59 100 11/10/20 01:00 104 H 25 H 109/57 100 11/10/20 00:30 93 H 22 109/57 100 11/10/20 00:00 97.6 F 98 H 33 H 102/49 100 11/09/20 23:30 84 15 102/49 100 11/09/20 23:13 91 H 11/09/20 23:00 82 19 105/52 100 11/09/20 22:30 86 19 106/48 100 11/09/20 22:00 90 24 100/47 100 11/09/20 21:58 20 11/09/20 21:30 96 H 33 H 110/43 100 11/09/20 21:11 99 11/09/20 21:10 99 11/09/20 21:00 90 20 112/60 100 11/09/20 20:58 16 11/09/20 20:57 88 119/69 11/09/20 20:30 103 H 28 H 119/69 100 11/09/20 20:00 99.2 F 110 H 24 126/82 100 11/09/20 19:30 109 H 26 H 130/77 100 11/09/20 19:14 109 H 11/09/20 19:00 109 H 34 H 137/69 100 11/09/20 18:30 104 H 18 135/71 100 11/09/20 18:00 102 H 18 128/68 100 11/09/20 17:30 96 H 25 H 121/70 100 11/09/20 17:00 103 H 23 126/73 100 11/09/20 16:30 106 H 25 H 126/73 100 11/09/20 16:05 108 H 135/51 11/09/20 16:00 99.0 F 108 H 16 108/66 100 11/09/20 15:30 107 H 12 135/51 100 11/09/20 15:00 104 H 15 128/48 100 11/09/20 14:31 108 H 20 130/52 100 11/09/20 14:00 106 H 20 115/69 100 11/09/20 13:37 100 11/09/20 13:31 107 H 23 110/73 100 11/09/20 13:00 105 H 31 H 107/58 100 11/09/20 12:30 97 H 24 111/50 100 11/09/20 12:00 99.4 F 102 H 23 128/59 100 11/09/20 11:30 105 H 17 128/59 100 11/09/20 11:01 103 H 14 116/69 100 11/09/20 10:30 92 H 31 H 117/57 100 11/09/20 10:00 102 H 19 104/65 100 11/09/20 09:30 102 H 14 111/60 100 11/09/20 09:00 100 H 13 114/55 100 100 11/09/20 08:59 104 H 118/46 100 11/09/20 08:30 85 19 118/46 100 11/09/20 08:00 99.4 F 80 26 H 111/50 100 Intake and Output 11/09/20 11/10/20 11/10/20 22:59 06:59 14:59 Intake Total 1680 1730 60 Output Total 2140 901 Balance -460 829 60 Intake: IV 1000 1000 D10w 1,000 ml @ 75 mls/hr 1000 1000 IV DIRECT ERINN Rx#: [id number] Intake, Free Water 100 Tube Feeding 480 480 60 Other 100 250 Output: Gastric Drainage 1 Lt Upper Quadrant 1 Urine 2140 900 Indwelling Catheter 240 900 Void 1900 Other: Total, Intake Amount 60 110 60 Total, Output Amount 240 550 Voiding Method Indwelling Catheter Indwelling Catheter Indwelling Catheter # Bowel Movements 1 0 Weight 105.3 kg - Exam Incision: Present: normal, dry - Labs Labs: Abnormal lab results 11/09/20 11/09/20 11/10/20 Range/Units 17:10 21:42 05:49 POC Glucose 112 H 110 H 108 H (70-105) mg/dL 11/10/20 Range/Units 07:17 POC Glucose 111 H (70-105) mg/dL
[2020-11-10] MEDS: FUROSEMIDE 40 MG TAB PO SCH (09:28)
[2020-11-10] MEDS: valACYclovir 500 MG TAB PO SCH ×2 (09:29→21:59)
[2020-11-10] MEDS: SODIUM BICARBONATE 650 MG TAB PO SCH ×3 (09:29→22:00)
[2020-11-10] MEDS: FAMOTIDINE 20 MG TAB PO SCH ×2 (09:29→22:00)
[2020-11-10] MEDS: TOPIRAMATE TAB 25 MG TAB PO SCH ×2 (09:29→22:00)
[2020-11-10] MEDS: ENOXAPARIN 40 MG/0.4 ML INJ SUB-Q SCH (09:30)
--- NOTE | 2020-11-10 10:52 | Progress Note ---
Assessment and Plan Cultures: 10/05/2020 Blood culture: no growth 10/11/2020 blood culture: No growth 10/11/2020 tracheal aspirate: Usual respiratory jaylan 10/14/2020 blood culture: Enterobacter, coag negative staph. Sensitivities in "scanned reports" 10/15/2020 blood culture: negative 11/02/2020 blood cultures no growth 11/06/2020 blood culture no growth today A/P: 30-year-old female with GERD, hypertension, seizure disorder was admitted to the hospital at 36 weeks with seizures. She became hypoxic and pulseless requiring CPR. Following emergent section, patient developed hemorrhage, DIC. She has been admitted to ICU, remains on the vent: #Intermittent fever: Initially due to Enterobacter bacteremia. Now with new fever likely due to herpes genitalis. #Extensive herpes genitalis: Perianal and vaginal #Recent Enterobacter bacteremia: Treated #Status post arrest 10/07/2020: Apparently had a brief code due to ?ET tube clot/plugging. #Initial shock, DIC/persistent fever: Secondary to hemorrhage, ?possible sepsis. Possible pneumonia versus fluid overload. ?Central fever v/s from VTE. Noted diarrhea ? Cdiff + #Acute kidney injury: resolved #Acute respiratory failure: remains on the vent. now has trach #Transaminitis: ?HELLP. #Preeclampsia # hemorrhage: Status post , status post supracervical hysterectomy. #Encephalopathy post cardiac arrest #C. difficile: Completed PO vancomycin Recs: -Continue p.o. Valtrex 1 g twice daily total 7 days -Wound care consultation Monitor fever Violette Dejesus MD [facility] ([facility]) Office [phone] Subjective Date of service: 11/10/20 Principal diagnosis: Eclampsia/HELLP Syndrome, ADOLPH, DIC; s/p , s/p supracervical hyst Interval history: No fever for 24 hours. Remains unresponsive on T-piece. Objective - Exam Narrative Exam: General appearance: Unresponsive Eyes: anicteric sclerae, moist conjunctivae; no lid-lag; PERRLA HENT: Normocephalic, Atraumatic; normal external ears, nares open, oropharynx limited rectal tube in place Neck: supple, tracheal midline, no JVD Lungs: Coarse breath sounds bilaterally CV: RRR no murmur Abdomen: Soft, wound with dressing Extremities: no edema, no cyanosis Skin: Extensive clusters of blisters perianal, vaginal area improving Psych: Unresponsive Neuro: Unresponsive - Constitutional Vitals: Vital Signs Temp Pulse Resp BP Pulse Ox 98.3 F 95 H 25 H 115/41 99 11/10/20 08:00 11/10/20 10:00 11/10/20 10:00 11/10/20 10:00 11/10/20 10:00 Temperature -Last 24 Hours Temperature 98.3 F Temperature 99.5 F Temperature 97.6 F Temperature 99.2 F Temperature 99.0 F Temperature 99.4 F Temperature 99.4 F Temperature 99.4 F - Labs CBC & Chem 7: 11/07/20 04:44 11/07/20 04:44 Labs: Abnormal lab results 11/09/20 11/09/20 11/10/20 Range/Units 17:10 21:42 05:49 POC Glucose 112 H 110 H 108 H (70-105) mg/dL 11/10/20 Range/Units 07:17 POC Glucose 111 H (70-105) mg/dL
--- NOTE | 2020-11-10 11:28 | Progress Note ---
Assessment and Plan 30 y/o female with Eclampsia, s/p emergent section with DIC, acute respiratory failure and worsening renal function. 11/10/20: If proinsulin not back by tomorrow will call lab. Once I have all info, will see if I can obtain and endocrine consult via phone to discuss case. Continue supplemental oxygen. Needs PT 11/09/20: Follow up Proinsulin levels. No endocrine consult available here, but will do more research to see if we can find out why she remains D10 dependent. Pulm status is stable. Continue T-piece. Not a candidate for floor given D10 requirement. 11/06/20: No new recs. Will continue to check for outside lab results over the weekend. 11/05/20: Awaiting outside labs to work up hypoglycemia. Will add some PRN a lbuterol nebs to see if this will help to thin out her secretions. 11/04/20: No changes. No new recs. Awaiting send out labs to help figure out hypoglycemia. 11/03/20: Continue D10. Await send out labs. 11/02/20: Called lab today to ask how to order these send out labs. Continue D10 along with feeds for now. Stopped robinol and no further reports of increased thickness of secretions. given D10 requirement, do not feel comfortable with transition to the floor. 11/01/20: Will stop Robinol as this may be making secretions to thick. Huge risk for mucous plugging given mental state. Continue D10 and waiting on labs from yesterday. LFT's repeated and AST elevated along with alk phos. Both of these were elevated on admission, then resolved and now are elevated again. In current clinical state, not sure what to make of those numbers. They do not help with trying to figure out hypoglycemia and persistent need for D10. Continue IMCU care. 10/31/20: Will order midline for IV team vs peripheral IV's (multiple). Needs access for d10 as we have not been able to figure out why she is so hypoglyemic. Will measure serum insulin levels and C-peptide levels, as well proinsulin. All of these labs are sendouts so will have to call down to ask how to order as they are not coming up in [facility]. Given her requirement for supplemental IV sugar, not a candidate for floor transfer. 10/30/20: Continue step down monitoring for now. If does well the next 24-36 hours, then will consider floor transfer. Really needs to continue PT with PROM. Will speak with CM about options for here now that critical needs are becoming minimal. 10/29/20: Off vent now for 24 hours. Tolerating T-Piece. Will transition to step down for a few days. If does well there, consider transition to floor. Continue PT. Guarded prognosis. 10/28/20: Daily T-piece trials for as long as tolerated. Attempt to push further daily. OT does not do passive range of motion. Per PT note will do passive range of motion with patient. Guarded prognosis. Hoping to wean off vent and transition to floor. 10/27/20: Continue daily T-piece trials for as long as tolerated. Ok with resting on either PSV or full rate if needed at night but need to strengthen her respiratory muscles. PT/OT if possible. Will transition to step down prior to going to floor to insure stability. 10/26/20: Will obtain ABG today. If good, will attempt on T-piece later. Continue PT/OT. Will speak with CM about possibility of LTACH or nursing facility that can take trached patients. 10/23/20: Daily PSV trials for as long as patient will tolerate. Needs PT/OT consult for passive range of motion. 10/22/20: Will start prolonged PSV trials. Attempt to wean from vent and then transition to floor to see if mental status improves. Continue tube feeds. 10/21/20: Trach and peg placed. No sedation. Restart Lovenox for Upper Ext DVT. Restart feeds when surgery states ok to use PEG. C. Diff treatment per ID. Guarded prognosis. Will be a fdc wean. Hopeful to wean off vent at least and then can transfer to floor. 10/20/20: NPO after midnight. DVT study just read from 10/14 on yesterday showing upper ext DVT. Started on Lovenox but need to hold therapy until after surgery. could be source of fevers. No sedation. 10/19/20: Stable BP. Will meet/talk with family at noon over the phone with myself and case management. Need to discuss goals of care and what next steps would be. Patient would need trach and peg and transfer to LTACH if family ok with this. Follow up speciation of MIRANDAR's in blood. Has been on Cefepime. Continues therapy for C. Diff. Guarded prognosis. Continue daily PSV trials but not ready for extubation secondary to mental state. 10/18/20: Blood pressure is much better with the addition of meds started on yesterday. Need to have family meeting jesica in regards to goals of care. Continue Daily PSV trials but not ready for extubation. Continue therapy for C. Diff per ID. 10/17/20: CT scan was of no help in regards to fevers. C. Diff is positive and BP now is more uncontrolled despite increasing labetalol. Today will increase to 300 TID. Added TID Hydralazine and added PO lasix given her mild pulmonary htn seen on echo. Spoke with mother over the phone and she requests to come see the patient. Given current circumstances, will allow her to come briefly today and then will speak with her at the bedside. No neurology is available at the time and suspect these will be the majority of her questions. Tolerated PSV briefly yesterday and will do again today but not for extended periods as given her mental state she is not a candidate for extubation. I will also ask the mother about fdc care (trach and peg) when she comes today. Overall prognosis is guarded to poor. If oral meds cannot regulate blood pressure, may need Cardene drip. Continue therapy for C. Diff per ID. Subjective Date of service: 11/10/20 Principal diagnosis: Eclampsia/HELLP Syndrome, ADOLPH, DIC; s/p , s/p supracervical hyst Interval history: No acute events. Pulm status is stable. Still hypoglycemic requiring D10 and pro insulin is still not back. Objective Vital Signs - 12hr 11/09/20 11/10/20 11/10/20 23:30 00:00 00:30 Temperature 97.6 F Pulse Rate 84 98 H 93 H Respiratory 15 33 H 22 Rate Blood Pressure 102/49 102/49 109/57 O2 Sat by Pulse 100 100 100 Oximetry O2 Sat by Pulse Oximetry [ Assessment] 11/10/20 11/10/20 11/10/20 01:00 01:30 02:00 Temperature Pulse Rate 104 H 92 H 104 H Respiratory 25 H 17 26 H Rate Blood Pressure 109/57 101/59 106/66 O2 Sat by Pulse 100 100 100 Oximetry O2 Sat by Pulse Oximetry [ Assessment] 11/10/20 11/10/20 11/10/20 02:30 03:00 03:30 Temperature Pulse Rate 107 H 88 105 H Respiratory 31 H 19 16 Rate Blood Pressure 106/66 111/62 113/54 O2 Sat by Pulse 100 100 100 Oximetry O2 Sat by Pulse Oximetry [ Assessment] 11/10/20 11/10/20 11/10/20 03:38 03:54 04:00 Temperature 99.5 F Pulse Rate Respiratory Rate Blood Pressure 108/61 O2 Sat by Pulse 100 Oximetry O2 Sat by Pulse 100 Oximetry [ Assessment] 11/10/20 11/10/20 11/10/20 04:30 04:46 05:00 Temperature Pulse Rate 99 H 84 92 H Respiratory 21 20 Rate Blood Pressure 106/44 136/70 O2 Sat by Pulse 100 Oximetry O2 Sat by Pulse Oximetry [ Assessment] 11/10/20 11/10/20 11/10/20 05:30 05:58 05:59 Temperature Pulse Rate 88 102 H Respiratory 14 23 Rate Blood Pressure 116/67 116/67 O2 Sat by Pulse 100 Oximetry O2 Sat by Pulse Oximetry [ Assessment] 11/10/20 11/10/20 11/10/20 06:00 06:30 06:59 Temperature Pulse Rate 96 H 100 H Respiratory 16 22 21 Rate Blood Pressure 111/49 116/50 O2 Sat by Pulse 100 100 Oximetry O2 Sat by Pulse Oximetry [ Assessment] 11/10/20 11/10/20 11/10/20 07:00 07:30 07:46 Temperature Pulse Rate 87 84 89 Respiratory 20 20 Rate Blood Pressure 113/47 115/49 O2 Sat by Pulse 100 99 Oximetry O2 Sat by Pulse Oximetry [ Assessment] 11/10/20 11/10/20 11/10/20 07:51 08:00 08:30 Temperature 98.3 F Pulse Rate 87 105 H Respiratory 19 19 Rate Blood Pressure 115/49 114/49 O2 Sat by Pulse 99 100 99 Oximetry O2 Sat by Pulse Oximetry [ Assessment] 11/10/20 11/10/20 11/10/20 09:00 09:29 09:30 Temperature Pulse Rate 100 H 80 103 H Respiratory 14 13 Rate Blood Pressure 124/40 124/40 131/60 O2 Sat by Pulse 99 100 Oximetry O2 Sat by Pulse Oximetry [ Assessment] 11/10/20 11/10/20 11/10/20 10:00 10:30 11:00 Temperature Pulse Rate 95 H 86 91 H Respiratory 25 H 21 16 Rate Blood Pressure 115/41 105/46 109/43 O2 Sat by Pulse 99 99 100 Oximetry O2 Sat by Pulse Oximetry [ Assessment] Constitutional: comatose, other (s/p trach) Eyes: non-icteric ENT: oropharynx moist Neck: other (large in cirumference) Effort: normal Ascultation: Bilateral: clear, diminished breath sounds, rhonchi, other (coarse BS bilaterally) Percussion: Bilateral: not dull Cardiovascular: regular rate and rhythm, other (no mrg) Gastrointestinal: normoactive bowel sounds, soft Extremities: no cyanosis, pink and warm Neurologic: other (unresponsive, not following commands, not tracking) Psychiatric: other (unable to assess) CBC and BMP: 11/07/20 04:44 11/07/20 04:44 ABG, PT/INR, D-dimer: ABG ABG pH 7.459 pH Units (7.350-7.450) H 10/26/20 10:30 POC ABG pCO2 20.7 mmHg (32.0-48.0) L 10/13/20 07:18 ABG pCO2 32.4 mm Hg 10/26/20 10:30 POC ABG pO2 137.9 mmHg (83-108) H 10/13/20 07:18 ABG pO2 112.2 mm Hg (80.0-90.0) H 10/26/20 10:30 POC ABG HCO3 14.8 10/13/20 07:18 ABG O2 Saturation 98.2 % (95.0-99.0) 10/26/20 10:30 PT/INR, D-dimer PT 13.6 Sec. (12.2-14.9) 10/21/20 13:54 INR 1.06 (0.87-1.13) 10/21/20 13:54 D-Dimer > 82079 ng/mlDDU (0-234) H 10/04/20 10:00 Abnormal lab findings: Abnormal Labs 10/02/20 10/02/20 10/02/20 12:03 12:18 12:18 WBC 14.9 H RBC Hgb 9.1 L Hct MCV MCH 22 L MCHC 28 L RDW 17.6 H Plt Count 102 L Lymph % (Auto) [place] % (Auto) Lymph # (Auto) [place] # (Auto) Baso # (Auto) Seg Neutrophils % Seg Neuts % (Manual) 36.0 L Lymphocytes % (Manual) 49.0 H Monocytes % (Manual) Nucleated RBC % 6.0 H Seg Neutrophils # Seg Neutrophils # Man Lymphocytes # (Manual) 7.3 H Monocytes # (Manual) PT INR APTT Fibrinogen D-Dimer ABG pH POC ABG pCO2 POC ABG pO2 ABG pO2 ABG HCO3 ABG Base Excess ABG Hemoglobin ABG Oxyhemoglobin ABG Sodium ABG Potassium ABG Chloride ABG Glucose VBG pH Oxyhemoglobin Carboxyhemoglobin Sodium 134 L Potassium Chloride Carbon Dioxide 12 L BUN 6 L Creatinine Glucose 390 H POC Glucose 451 H Random Insulin C-Peptide Lactic Acid Calcium Ionized Calcium Phosphorus Magnesium AST 135 H ALT 85 H Alkaline Phosphatase 172 H Lactate Dehydrogenase 641 H NT-Pro-B Natriuret Pep Total Protein 5.4 L Albumin 2.3 L Arterial Blood Glucose Arterial Blood Ionized Calcium Urine WBC (Auto) Vancomycin Trough Phenytoin Crossmatch 10/02/20 10/02/20 10/02/20 12:50 13:05 13:05 WBC 38.6 H RBC Hgb 8.9 L Hct 29.0 L MCV 73 L MCH 22 L MCHC RDW 17.2 H Plt Count Lymph % (Auto) A[place] % (Auto) Lymph # (Auto) Aiken # (Auto) Baso # (Auto) Seg Neutrophils % Seg Neuts % (Manual) Lymphocytes % (Manual) Monocytes % (Manual) Nucleated RBC % 2.0 H Seg Neutrophils # Seg Neutrophils # Man 20.1 H Lymphocytes # (Manual) 10.4 H Monocytes # (Manual) 2.3 H PT INR APTT Fibrinogen D-Dimer ABG pH POC ABG pCO2 POC ABG pO2 ABG pO2 ABG HCO3 ABG Base Excess ABG Hemoglobin ABG Oxyhemoglobin ABG Sodium ABG Potassium ABG Chloride ABG Glucose VBG pH Oxyhemoglobin Carboxyhemoglobin Sodium Potassium Chloride Carbon Dioxide BUN Creatinine Glucose POC Glucose Random Insulin C-Peptide Lactic Acid Calcium Ionized Calcium Phosphorus Magnesium AST 184 H ALT 113 H Alkaline Phosphatase Lactate Dehydrogenase 769 H NT-Pro-B Natriuret Pep Total Protein Albumin Arterial Blood Glucose Arterial Blood Ionized Calcium Urine WBC (Auto) Vancomycin Trough Phenytoin Crossmatch See Detail 10/02/20 10/02/20 10/02/20 16:25 16:35 16:35 WBC RBC Hgb Hct MCV MCH MCHC RDW Plt Count Lymph % (Auto) A[place] % (Auto) Lymph # (Auto) A[place] # (Auto) Baso # (Auto) Seg Neutrophils % Seg Neuts % (Manual) Lymphocytes % (Manual) Monocytes % (Manual) Nucleated RBC % Seg Neutrophils # Seg Neutrophils # Man Lymphocytes # (Manual) Monocytes # (Manual) PT INR APTT Fibrinogen D-Dimer ABG pH 7.031 L* POC ABG pCO2 POC ABG pO2 ABG pO2 116.8 H ABG HCO3 12.7 L ABG Base Excess -16.9 L ABG Hemoglobin 7.8 L ABG Oxyhemoglobin ABG Sodium ABG Potassium ABG Chloride ABG Glucose VBG pH Oxyhemoglobin 94.9 L Carboxyhemoglobin Sodium Potassium Chloride Carbon Dioxide BUN Creatinine Glucose 403 H POC Glucose Random Insulin C-Peptide Lactic Acid 11.40 H* Calcium 6.3 L D Ionized Calcium Phosphorus Magnesium AST 70 H ALT Alkaline Phosphatase Lactate Dehydrogenase NT-Pro-B Natriuret Pep Total Protein 1.9 L D Albumin 1.2 L Arterial Blood Glucose Arterial Blood Ionized Calcium Urine WBC (Auto) Vancomycin Trough Phenytoin Crossmatch 10/02/20 10/02/20 10/02/20 18:18 18:18 22:30 WBC 11.5 H RBC 2.06 L Hgb 5.5 L* D Hct 17.3 L* D MCV MCH 27 L MCHC RDW 19.5 H Plt Count 60 L Lymph % (Auto) [place] % (Auto) Lymph # (Auto) [place] # (Auto) Baso # (Auto) Seg Neutrophils % Seg Neuts % (Manual) Lymphocytes % (Manual) 8.0 L Monocytes % (Manual) 8.0 H Nucleated RBC % 8.0 H Seg Neutrophils # Seg Neutrophils # Man Lymphocytes # (Manual) 0.9 L Monocytes # (Manual) 0.9 H PT 37.1 H INR 3.71 H APTT 135.8 H* Fibrinogen D-Dimer ABG pH 7.067 L* POC ABG pCO2 POC ABG pO2 ABG pO2 183.0 H ABG HCO3 14.1 L ABG Base Excess -15.1 L ABG Hemoglobin 7.7 L ABG Oxyhemoglobin ABG Sodium ABG Potassium ABG Chloride ABG Glucose VBG pH Oxyhemoglobin Carboxyhemoglobin Sodium Potassium Chloride Carbon Dioxide BUN Creatinine Glucose POC Glucose Random Insulin C-Peptide Lactic Acid Calcium Ionized Calcium Phosphorus Magnesium AST ALT Alkaline Phosphatase Lactate Dehydrogenase NT-Pro-B Natriuret Pep Total Protein Albumin Arterial Blood Glucose Arterial Blood Ionized Calcium Urine WBC (Auto) Vancomycin Trough Phenytoin Crossmatch 10/02/20 10/02/20 10/03/20 Unknown Unknown 00:01 WBC RBC Hgb Hct MCV MCH MCHC RDW Plt Count Lymph % (Auto) [place] % (Auto) Lymph # (Auto) [place] # (Auto) Baso # (Auto) Seg Neutrophils % Seg Neuts % (Manual) Lymphocytes % (Manual) Monocytes % (Manual) Nucleated RBC % Seg Neutrophils # Seg Neutrophils # Man Lymphocytes # (Manual) Monocytes # (Manual) PT 61.1 H INR 6.92 H* APTT 158.7 H* Fibrinogen < 60 L* D-Dimer > 51517 H ABG pH POC ABG pCO2 POC ABG pO2 ABG pO2 ABG HCO3 ABG Base Excess ABG Hemoglobin ABG Oxyhemoglobin ABG Sodium ABG Potassium ABG Chloride ABG Glucose VBG pH 6.949 L* Oxyhemoglobin Carboxyhemoglobin Sodium Potassium Chloride Carbon Dioxide BUN Creatinine Glucose POC Glucose 196 H Random Insulin C-Peptide Lactic Acid Calcium Ionized Calcium Phosphorus Magnesium AST ALT Alkaline Phosphatase Lactate Dehydrogenase NT-Pro-B Natriuret Pep Total Protein Albumin Arterial Blood Glucose Arterial Blood Ionized Calcium Urine WBC (Auto) Vancomycin Trough Phenytoin Crossmatch 10/03/20 10/03/20 10/03/20 00:40 00:40 00:40 WBC RBC Hgb Hct MCV MCH MCHC RDW Plt Count Lymph % (Auto) [place] % (Auto) Lymph # (Auto) [place] # (Auto) Baso # (Auto) Seg Neutrophils % Seg Neuts % (Manual) Lymphocytes % (Manual) Monocytes % (Manual) Nucleated RBC % Seg Neutrophils # Seg Neutrophils # Man Lymphocytes # (Manual) Monocytes # (Manual) PT 15.1 H INR 1.21 H APTT Fibrinogen D-Dimer ABG pH POC ABG pCO2 POC ABG pO2 ABG pO2 ABG HCO3 ABG Base Excess ABG Hemoglobin ABG Oxyhemoglobin ABG Sodium ABG Potassium ABG Chloride ABG Glucose VBG pH Oxyhemoglobin Carboxyhemoglobin Sodium 136 L Potassium Chloride Carbon Dioxide BUN Creatinine 1.6 H D Glucose 106 H POC Glucose Random Insulin C-Peptide Lactic Acid 5.60 H* Calcium 6.5 L Ionized Calcium Phosphorus Magnesium AST 232 H ALT 104 H Alkaline Phosphatase Lactate Dehydrogenase NT-Pro-B Natriuret Pep Total Protein 3.9 L D Albumin 2.4 L Arterial Blood Glucose Arterial Blood Ionized Calcium Urine WBC (Auto) Vancomycin Trough Phenytoin Crossmatch 10/03/20 10/03/20 10/03/20 02:08 02:08 02:08 WBC 17.6 H RBC 3.27 L Hgb 9.9 L D Hct 29.9 L D MCV MCH MCHC RDW 16.5 H Plt Count 75 L Lymph % (Auto) [place] % (Auto) Lymph # (Auto) [place] # (Auto) Baso # (Auto) Seg Neutrophils % Seg Neuts % (Manual) 76.0 H Lymphocytes % (Manual) Monocytes % (Manual) Nucleated RBC % 8.0 H Seg Neutrophils # Seg Neutrophils # Man 13.4 H Lymphocytes # (Manual) Monocytes # (Manual) PT INR APTT Fibrinogen D-Dimer ABG pH POC ABG pCO2 POC ABG pO2 ABG pO2 ABG HCO3 ABG Base Excess ABG Hemoglobin ABG Oxyhemoglobin ABG Sodium ABG Potassium ABG Chloride ABG Glucose VBG pH Oxyhemoglobin Carboxyhemoglobin Sodium Potassium Chloride Carbon Dioxide 19 L BUN Creatinine 1.4 H Glucose 306 H POC Glucose Random Insulin C-Peptide Lactic Acid 10.50 H* Calcium 6.4 L Ionized Calcium Phosphorus Magnesium AST ALT Alkaline Phosphatase Lactate Dehydrogenase NT-Pro-B Natriuret Pep Total Protein Albumin Arterial Blood Glucose Arterial Blood Ionized Calcium Urine WBC (Auto) Vancomycin Trough Phenytoin Crossmatch 10/03/20 10/03/20 10/03/20 02:42 03:59 05:31 WBC RBC Hgb Hct MCV MCH MCHC RDW Plt Count Lymph % (Auto) [place] % (Auto) Lymph # (Auto) [place] # (Auto) Baso # (Auto) Seg Neutrophils % Seg Neuts % (Manual) Lymphocytes % (Manual) Monocytes % (Manual) Nucleated RBC % Seg Neutrophils # Seg Neutrophils # Man Lymphocytes # (Manual) Monocytes # (Manual) PT INR APTT Fibrinogen D-Dimer ABG pH 7.144 L POC ABG pCO2 54.4 H POC ABG pO2 ABG pO2 ABG HCO3 ABG Base Excess ABG Hemoglobin 10.0 L ABG Oxyhemoglobin ABG Sodium ABG Potassium ABG Chloride 108.0 H ABG Glucose 306 H VBG pH Oxyhemoglobin Carboxyhemoglobin Sodium Potassium Chloride Carbon Dioxide BUN Creatinine Glucose POC Glucose 209 H Random Insulin C-Peptide Lactic Acid 9.20 H* Calcium Ionized Calcium Phosphorus Magnesium AST ALT Alkaline Phosphatase Lactate Dehydrogenase NT-Pro-B Natriuret Pep Total Protein Albumin Arterial Blood Glucose 306 H Arterial Blood Ionized Calcium 3.7 L Urine WBC (Auto) Vancomycin Trough Phenytoin Crossmatch 10/03/20 10/03/20 10/03/20 09:00 09:00 09:00 WBC 27.4 H RBC 2.84 L Hgb 8.5 L Hct 25.1 L MCV MCH MCHC RDW 16.1 H Plt Count 72 L Lymph % (Auto) [place] % (Auto) Lymph # (Auto) [place] # (Auto) Baso # (Auto) Seg Neutrophils % Seg Neuts % (Manual) Lymphocytes % (Manual) 11.0 L Monocytes % (Manual) Nucleated RBC % 3.0 H Seg Neutrophils # Seg Neutrophils # Man 18.4 H Lymphocytes # (Manual) Monocytes # (Manual) 1.9 H PT INR APTT Fibrinogen D-Dimer ABG pH POC ABG pCO2 POC ABG pO2 ABG pO2 ABG HCO3 ABG Base Excess ABG Hemoglobin ABG Oxyhemoglobin ABG Sodium ABG Potassium ABG Chloride ABG Glucose VBG pH Oxyhemoglobin Carboxyhemoglobin Sodium Potassium Chloride Carbon Dioxide BUN Creatinine 1.7 H Glucose 216 H POC Glucose Random Insulin C-Peptide Lactic Acid 9.20 H* Calcium 6.3 L Ionized Calcium Phosphorus Magnesium AST 331 H ALT 171 H Alkaline Phosphatase Lactate Dehydrogenase NT-Pro-B Natriuret Pep Total Protein 3.7 L Albumin 1.9 L Arterial Blood Glucose Arterial Blood Ionized Calcium Urine WBC (Auto) Vancomycin Trough Phenytoin Crossmatch 10/03/20 10/03/20 10/03/20 11:20 11:46 11:50 WBC 28.7 H RBC 2.67 L Hgb 8.0 L Hct 23.7 L MCV MCH MCHC RDW 16.6 H Plt Count 76 L Lymph % (Auto) [place] % (Auto) Lymph # (Auto) [place] # (Auto) Baso # (Auto) Seg Neutrophils % Seg Neuts % (Manual) Lymphocytes % (Manual) Monocytes % (Manual) Nucleated RBC % Seg Neutrophils # Seg Neutrophils # Man Lymphocytes # (Manual) Monocytes # (Manual) PT INR APTT Fibrinogen D-Dimer ABG pH POC ABG pCO2 POC ABG pO2 ABG pO2 ABG HCO3 ABG Base Excess ABG Hemoglobin ABG Oxyhemoglobin ABG Sodium ABG Potassium ABG Chloride ABG Glucose VBG pH Oxyhemoglobin Carboxyhemoglobin Sodium Potassium Chloride Carbon Dioxide BUN Creatinine Glucose POC Glucose 125 H Random Insulin C-Peptide Lactic Acid 8.00 H* Calcium Ionized Calcium Phosphorus Magnesium AST ALT Alkaline Phosphatase Lactate Dehydrogenase NT-Pro-B Natriuret Pep Total Protein Albumin Arterial Blood Glucose Arterial Blood Ionized Calcium Urine WBC (Auto) Vancomycin Trough Phenytoin Crossmatch 10/03/20 10/04/20 10/04/20 11:50 00:40 00:40 WBC RBC Hgb 6.8 L Hct 19.4 L* MCV MCH MCHC RDW Plt Count 49 L Lymph % (Auto) [place] % (Auto) Lymph # (Auto) [place] # (Auto) Baso # (Auto) Seg Neutrophils % Seg Neuts % (Manual) Lymphocytes % (Manual) Monocytes % (Manual) Nucleated RBC % Seg Neutrophils # Seg Neutrophils # Man Lymphocytes # (Manual) Monocytes # (Manual) PT INR APTT Fibrinogen D-Dimer ABG pH 7.244 L POC ABG pCO2 POC ABG pO2 ABG pO2 ABG HCO3 ABG Base Excess -4.5 L ABG Hemoglobin 7.3 L ABG Oxyhemoglobin ABG Sodium ABG Potassium ABG Chloride ABG Glucose VBG pH Oxyhemoglobin Carboxyhemoglobin Sodium Potassium Chloride Carbon Dioxide BUN Creatinine Glucose POC Glucose Random Insulin C-Peptide Lactic Acid Calcium Ionized Calcium Phosphorus Magnesium AST ALT Alkaline Phosphatase Lactate Dehydrogenase NT-Pro-B Natriuret Pep Total Protein Albumin Arterial Blood Glucose Arterial Blood Ionized Calcium Urine WBC (Auto) Vancomycin Trough Phenytoin Crossmatch 10/04/20 10/04/20 10/04/20 03:53 10:00 10:00 WBC 14.6 H RBC 2.57 L Hgb 7.6 L Hct 22.5 L MCV MCH MCHC RDW 15.8 H Plt Count 38 L Lymph % (Auto) 7.7 L [place] % (Auto) Lymph # (Auto) 1.1 L [place] # (Auto) 0.9 H Baso # (Auto) Seg Neutrophils % 85.6 H Seg Neuts % (Manual) Lymphocytes % (Manual) Monocytes % (Manual) Nucleated RBC % Seg Neutrophils # 12.5 H Seg Neutrophils # Man Lymphocytes # (Manual) Monocytes # (Manual) PT INR APTT Fibrinogen D-Dimer ABG pH POC ABG pCO2 POC ABG pO2 110.6 H ABG pO2 ABG HCO3 ABG Base Excess ABG Hemoglobin 6.7 L ABG Oxyhemoglobin ABG Sodium 132.0 L ABG Potassium ABG Chloride ABG Glucose 111 H VBG pH Oxyhemoglobin Carboxyhemoglobin Sodium 134 L D Potassium Chloride 97.6 L Carbon Dioxide BUN Creatinine 1.7 H Glucose POC Glucose Random Insulin C-Peptide Lactic Acid Calcium 6.3 L Ionized Calcium Phosphorus Magnesium AST 203 H ALT 81 H Alkaline Phosphatase Lactate Dehydrogenase NT-Pro-B Natriuret Pep Total Protein 3.9 L Albumin 2.3 L Arterial Blood Glucose 111 H Arterial Blood Ionized Calcium 3.5 L Urine WBC (Auto) Vancomycin Trough Phenytoin Crossmatch 10/04/20 10/04/20 10/04/20 10:00 10:00 10:14 WBC RBC Hgb Hct MCV MCH MCHC RDW Plt Count Lymph % (Auto) [place] % (Auto) Lymph # (Auto) [place] # (Auto) Baso # (Auto) Seg Neutrophils % Seg Neuts % (Manual) Lymphocytes % (Manual) Monocytes % (Manual) Nucleated RBC % Seg Neutrophils # Seg Neutrophils # Man Lymphocytes # (Manual) Monocytes # (Manual) PT INR APTT Fibrinogen D-Dimer > 72209 H ABG pH POC ABG pCO2 POC ABG pO2 ABG pO2 ABG HCO3 ABG Base Excess ABG Hemoglobin ABG Oxyhemoglobin ABG Sodium ABG Potassium ABG Chloride ABG Glucose VBG pH Oxyhemoglobin Carboxyhemoglobin Sodium Potassium Chloride Carbon Dioxide BUN Creatinine Glucose POC Glucose Random Insulin C-Peptide Lactic Acid 3.90 H* Calcium Ionized Calcium Phosphorus Magnesium AST ALT Alkaline Phosphatase Lactate Dehydrogenase NT-Pro-B Natriuret Pep 2788 H Total Protein Albumin Arterial Blood Glucose Arterial Blood Ionized Calcium Urine WBC (Auto) Vancomycin Trough Phenytoin Crossmatch 10/04/20 10/04/20 10/04/20 14:00 14:00 18:00 WBC 15.7 H RBC 3.17 L Hgb 9.3 L 9.6 L Hct 27.2 L 28.0 L MCV MCH MCHC RDW 16.9 H Plt Count 41 L Lymph % (Auto) 8.6 L [place] % (Auto) Lymph # (Auto) [place] # (Auto) 0.9 H Baso # (Auto) Seg Neutrophils % 85.4 H Seg Neuts % (Manual) Lymphocytes % (Manual) Monocytes % (Manual) Nucleated RBC % Seg Neutrophils # 13.4 H Seg Neutrophils # Man Lymphocytes # (Manual) Monocytes # (Manual) PT INR APTT Fibrinogen D-Dimer ABG pH POC ABG pCO2 POC ABG pO2 ABG pO2 ABG HCO3 ABG Base Excess ABG Hemoglobin ABG Oxyhemoglobin ABG Sodium ABG Potassium ABG Chloride ABG Glucose VBG pH Oxyhemoglobin Carboxyhemoglobin Sodium 133 L Potassium Chloride 96.4 L Carbon Dioxide BUN 18 H Creatinine 1.7 H Glucose POC Glucose Random Insulin C-Peptide Lactic Acid Calcium 6.3 L Ionized Calcium Phosphorus Magnesium AST ALT Alkaline Phosphatase Lactate Dehydrogenase NT-Pro-B Natriuret Pep Total Protein Albumin Arterial Blood Glucose Arterial Blood Ionized Calcium Urine WBC (Auto) Vancomycin Trough Phenytoin Crossmatch 10/04/20 10/04/20 10/05/20 18:00 22:00 05:00 WBC 17.6 H RBC 3.34 L Hgb 9.9 L Hct 29.4 L MCV MCH MCHC RDW 17.1 H Plt Count 56 L Lymph % (Auto) 8.5 L [place] % (Auto) Lymph # (Auto) [place] # (Auto) 1.0 H Baso # (Auto) Seg Neutrophils % 85.1 H Seg Neuts % (Manual) Lymphocytes % (Manual) Monocytes % (Manual) Nucleated RBC % Seg Neutrophils # 15.0 H Seg Neutrophils # Man Lymphocytes # (Manual) Monocytes # (Manual) PT INR APTT Fibrinogen D-Dimer ABG pH POC ABG pCO2 POC ABG pO2 ABG pO2 ABG HCO3 ABG Base Excess ABG Hemoglobin ABG Oxyhemoglobin ABG Sodium ABG Potassium ABG Chloride ABG Glucose VBG pH Oxyhemoglobin Carboxyhemoglobin Sodium 136 L Potassium Chloride Carbon Dioxide BUN 18 H Creatinine 1.7 H Glucose POC Glucose Random Insulin C-Peptide Lactic Acid 2.30 H* Calcium 6.6 L Ionized Calcium Phosphorus Magnesium AST ALT Alkaline Phosphatase Lactate Dehydrogenase NT-Pro-B Natriuret Pep Total Protein Albumin Arterial Blood Glucose Arterial Blood Ionized Calcium Urine WBC (Auto) Vancomycin Trough Phenytoin Crossmatch 12/21/20 12/21/20 12/21/20 05:00 05:00 05:03 WBC RBC Hgb Hct MCV MCH MCHC RDW Plt Count Lymph % (Auto) [place] % (Auto) Lymph # (Auto) [place] # (Auto) Baso # (Auto) Seg Neutrophils % Seg Neuts % (Manual) Lymphocytes % (Manual) Monocytes % (Manual) Nucleated RBC % Seg Neutrophils # Seg Neutrophils # Man Lymphocytes # (Manual) Monocytes # (Manual) PT INR APTT Fibrinogen D-Dimer ABG pH 7.458 H POC ABG pCO2 POC ABG pO2 ABG pO2 74.3 L ABG HCO3 27.5 H ABG Base Excess 3.4 H ABG Hemoglobin 10.0 L ABG Oxyhemoglobin ABG Sodium ABG Potassium ABG Chloride ABG Glucose VBG pH Oxyhemoglobin 94.9 L Carboxyhemoglobin Sodium Potassium Chloride Carbon Dioxide BUN 19 H Creatinine 1.8 H Glucose POC Glucose Random Insulin C-Peptide Lactic Acid Calcium 6.8 L Ionized Calcium 3.9 L Phosphorus Magnesium AST 225 H ALT 85 H Alkaline Phosphatase Lactate Dehydrogenase NT-Pro-B Natriuret Pep Total Protein 4.5 L Albumin 2.7 L Arterial Blood Glucose Arterial Blood Ionized Calcium Urine WBC (Auto) Vancomycin Trough Phenytoin Crossmatch 10/05/20 10/05/20 10/05/20 10:10 15:00 19:40 WBC RBC Hgb Hct MCV MCH MCHC RDW Plt Count Lymph % (Auto) [place] % (Auto) Lymph # (Auto) [place] # (Auto) Baso # (Auto) Seg Neutrophils % Seg Neuts % (Manual) Lymphocytes % (Manual) Monocytes % (Manual) Nucleated RBC % Seg Neutrophils # Seg Neutrophils # Man Lymphocytes # (Manual) Monocytes # (Manual) PT INR APTT Fibrinogen D-Dimer ABG pH POC ABG pCO2 POC ABG pO2 ABG pO2 ABG HCO3 ABG Base Excess ABG Hemoglobin ABG Oxyhemoglobin ABG Sodium ABG Potassium ABG Chloride ABG Glucose VBG pH Oxyhemoglobin Carboxyhemoglobin Sodium Potassium 3.5 L Chloride Carbon Dioxide 31 H 32 H BUN 19 H 19 H Creatinine 1.8 H 1.8 H Glucose POC Glucose Random Insulin C-Peptide Lactic Acid Calcium 7.0 L 7.2 L Ionized Calcium Phosphorus Magnesium 2.90 H AST ALT Alkaline Phosphatase Lactate Dehydrogenase NT-Pro-B Natriuret Pep Total Protein Albumin Arterial Blood Glucose Arterial Blood Ionized Calcium Urine WBC (Auto) Vancomycin Trough Phenytoin Crossmatch 10/06/20 10/06/20 10/06/20 01:05 03:12 04:00 WBC 17.1 H RBC 3.47 L Hgb Hct MCV MCH MCHC RDW 17.4 H Plt Count 82 L Lymph % (Auto) 8.3 L [place] % (Auto) Lymph # (Auto) [place] # (Auto) 1.1 H Baso # (Auto) Seg Neutrophils % 83.8 H Seg Neuts % (Manual) Lymphocytes % (Manual) Monocytes % (Manual) Nucleated RBC % Seg Neutrophils # 14.3 H Seg Neutrophils # Man Lymphocytes # (Manual) Monocytes # (Manual) PT INR APTT Fibrinogen D-Dimer ABG pH 7.474 H POC ABG pCO2 POC ABG pO2 129.5 H ABG pO2 ABG HCO3 ABG Base Excess ABG Hemoglobin 11.4 L ABG Oxyhemoglobin ABG Sodium 131.8 L ABG Potassium ABG Chloride ABG Glucose 103 H VBG pH Oxyhemoglobin Carboxyhemoglobin 0.3 L Sodium Potassium Chloride Carbon Dioxide BUN Creatinine Glucose POC Glucose Random Insulin C-Peptide Lactic Acid Calcium Ionized Calcium Phosphorus Magnesium 3.70 H AST ALT Alkaline Phosphatase Lactate Dehydrogenase NT-Pro-B Natriuret Pep Total Protein Albumin Arterial Blood Glucose 103 H Arterial Blood Ionized Calcium 4.2 L Urine WBC (Auto) Vancomycin Trough Phenytoin Crossmatch 10/06/20 10/06/20 10/06/20 04:00 05:31 08:12 WBC RBC Hgb Hct MCV MCH MCHC RDW Plt Count Lymph % (Auto) [place] % (Auto) Lymph # (Auto) [place] # (Auto) Baso # (Auto) Seg Neutrophils % Seg Neuts % (Manual) Lymphocytes % (Manual) Monocytes % (Manual) Nucleated RBC % Seg Neutrophils # Seg Neutrophils # Man Lymphocytes # (Manual) Monocytes # (Manual) PT INR APTT Fibrinogen D-Dimer ABG pH POC ABG pCO2 POC ABG pO2 ABG pO2 ABG HCO3 ABG Base Excess ABG Hemoglobin ABG Oxyhemoglobin ABG Sodium ABG Potassium ABG Chloride ABG Glucose VBG pH Oxyhemoglobin Carboxyhemoglobin Sodium Potassium 3.5 L Chloride Carbon Dioxide BUN 19 H Creatinine 1.8 H Glucose 102 H POC Glucose 116 H Random Insulin C-Peptide Lactic Acid Calcium 7.2 L Ionized Calcium Phosphorus Magnesium 5.40 H AST 307 H ALT 137 H Alkaline Phosphatase Lactate Dehydrogenase NT-Pro-B Natriuret Pep Total Protein 4.5 L Albumin 2.6 L Arterial Blood Glucose Arterial Blood Ionized Calcium Urine WBC (Auto) Vancomycin Trough Phenytoin Crossmatch 10/06/20 10/06/20 10/06/20 11:00 11:50 20:13 WBC RBC Hgb Hct MCV MCH MCHC RDW Plt Count Lymph % (Auto) [place] % (Auto) Lymph # (Auto) [place] # (Auto) Baso # (Auto) Seg Neutrophils % Seg Neuts % (Manual) Lymphocytes % (Manual) Monocytes % (Manual) Nucleated RBC % Seg Neutrophils # Seg Neutrophils # Man Lymphocytes # (Manual) Monocytes # (Manual) PT INR APTT Fibrinogen D-Dimer ABG pH POC ABG pCO2 POC ABG pO2 ABG pO2 ABG HCO3 ABG Base Excess ABG Hemoglobin ABG Oxyhemoglobin ABG Sodium ABG Potassium ABG Chloride ABG Glucose VBG pH Oxyhemoglobin Carboxyhemoglobin Sodium Potassium Chloride Carbon Dioxide BUN Creatinine Glucose POC Glucose 106 H Random Insulin C-Peptide Lactic Acid Calcium Ionized Calcium Phosphorus Magnesium 6.50 H 6.20 H AST ALT Alkaline Phosphatase Lactate Dehydrogenase NT-Pro-B Natriuret Pep Total Protein Albumin Arterial Blood Glucose Arterial Blood Ionized Calcium Urine WBC (Auto) Vancomycin Trough Phenytoin Crossmatch 10/06/20 10/06/20 10/06/20 20:17 22:29 23:57 WBC RBC Hgb Hct MCV MCH MCHC RDW Plt Count Lymph % (Auto) [place] % (Auto) Lymph # (Auto) [place] # (Auto) Baso # (Auto) Seg Neutrophils % Seg Neuts % (Manual) Lymphocytes % (Manual) Monocytes % (Manual) Nucleated RBC % Seg Neutrophils # Seg Neutrophils # Man Lymphocytes # (Manual) Monocytes # (Manual) PT INR APTT Fibrinogen D-Dimer ABG pH POC ABG pCO2 POC ABG pO2 ABG pO2 ABG HCO3 ABG Base Excess ABG Hemoglobin ABG Oxyhemoglobin ABG Sodium ABG Potassium ABG Chloride ABG Glucose VBG pH Oxyhemoglobin Carboxyhemoglobin Sodium Potassium Chloride Carbon Dioxide BUN Creatinine Glucose POC Glucose 112 H 126 H 133 H Random Insulin C-Peptide Lactic Acid Calcium Ionized Calcium Phosphorus Magnesium AST ALT Alkaline Phosphatase Lactate Dehydrogenase NT-Pro-B Natriuret Pep Total Protein Albumin Arterial Blood Glucose Arterial Blood Ionized Calcium Urine WBC (Auto) Vancomycin Trough Phenytoin Crossmatch 10/07/20 10/07/20 10/07/20 00:35 02:22 03:16 WBC RBC Hgb Hct MCV MCH MCHC RDW Plt Count Lymph % (Auto) [place] % (Auto) Lymph # (Auto) [place] # (Auto) Baso # (Auto) Seg Neutrophils % Seg Neuts % (Manual) Lymphocytes % (Manual) Monocytes % (Manual) Nucleated RBC % Seg Neutrophils # Seg Neutrophils # Man Lymphocytes # (Manual) Monocytes # (Manual) PT INR APTT Fibrinogen D-Dimer ABG pH POC ABG pCO2 POC ABG pO2 ABG pO2 ABG HCO3 ABG Base Excess ABG Hemoglobin 11.6 L ABG Oxyhemoglobin ABG Sodium ABG Potassium ABG Chloride ABG Glucose 156 H VBG pH Oxyhemoglobin Carboxyhemoglobin 0.3 L Sodium Potassium Chloride Carbon Dioxide BUN Creatinine Glucose POC Glucose 124 H Random Insulin C-Peptide Lactic Acid Calcium Ionized Calcium Phosphorus Magnesium 5.90 H AST ALT Alkaline Phosphatase Lactate Dehydrogenase NT-Pro-B Natriuret Pep Total Protein Albumin Arterial Blood Glucose 156 H Arterial Blood Ionized Calcium 4.2 L Urine WBC (Auto) Vancomycin Trough Phenytoin Crossmatch 10/07/20 10/07/20 10/07/20 04:06 05:45 07:05 WBC 19.2 H RBC 3.57 L Hgb Hct MCV MCH MCHC 35 H RDW 17.1 H Plt Count 129 L Lymph % (Auto) [place] % (Auto) Lymph # (Auto) [place] # (Auto) Baso # (Auto) Seg Neutrophils % Seg Neuts % (Manual) 94.0 H Lymphocytes % (Manual) 6.0 L Monocytes % (Manual) Nucleated RBC % Seg Neutrophils # Seg Neutrophils # Man 18.0 H Lymphocytes # (Manual) Monocytes # (Manual) PT INR APTT Fibrinogen D-Dimer ABG pH POC ABG pCO2 POC ABG pO2 ABG pO2 ABG HCO3 ABG Base Excess ABG Hemoglobin ABG Oxyhemoglobin ABG Sodium ABG Potassium ABG Chloride ABG Glucose VBG pH Oxyhemoglobin Carboxyhemoglobin Sodium Potassium Chloride Carbon Dioxide BUN Creatinine Glucose POC Glucose 135 H 149 H Random Insulin C-Peptide Lactic Acid Calcium Ionized Calcium Phosphorus Magnesium AST ALT Alkaline Phosphatase Lactate Dehydrogenase NT-Pro-B Natriuret Pep Total Protein Albumin Arterial Blood Glucose Arterial Blood Ionized Calcium Urine WBC (Auto) Vancomycin Trough Phenytoin Crossmatch 10/07/20 10/07/20 10/07/20 07:05 07:05 12:21 WBC RBC Hgb Hct MCV MCH MCHC RDW Plt Count Lymph % (Auto) [place] % (Auto) Lymph # (Auto) [place] # (Auto) Baso # (Auto) Seg Neutrophils % Seg Neuts % (Manual) Lymphocytes % (Manual) Monocytes % (Manual) Nucleated RBC % Seg Neutrophils # Seg Neutrophils # Man Lymphocytes # (Manual) Monocytes # (Manual) PT INR APTT Fibrinogen D-Dimer ABG pH POC ABG pCO2 POC ABG pO2 ABG pO2 ABG HCO3 ABG Base Excess ABG Hemoglobin ABG Oxyhemoglobin ABG Sodium ABG Potassium ABG Chloride ABG Glucose VBG pH Oxyhemoglobin Carboxyhemoglobin Sodium Potassium Chloride Carbon Dioxide BUN 21 H Creatinine 1.7 H Glucose 171 H POC Glucose 124 H Random Insulin C-Peptide Lactic Acid Calcium 7.4 L Ionized Calcium Phosphorus Magnesium 6.10 H AST 245 H ALT 147 H Alkaline Phosphatase Lactate Dehydrogenase NT-Pro-B Natriuret Pep Total Protein 5.3 L Albumin 2.8 L Arterial Blood Glucose Arterial Blood Ionized Calcium Urine WBC (Auto) Vancomycin Trough Phenytoin Crossmatch 10/07/20 10/07/20 10/07/20 19:52 21:00 21:50 WBC RBC Hgb Hct MCV MCH MCHC RDW Plt Count Lymph % (Auto) [place] % (Auto) Lymph # (Auto) [place] # (Auto) Baso # (Auto) Seg Neutrophils % Seg Neuts % (Manual) Lymphocytes % (Manual) Monocytes % (Manual) Nucleated RBC % Seg Neutrophils # Seg Neutrophils # Man Lymphocytes # (Manual) Monocytes # (Manual) PT INR APTT Fibrinogen D-Dimer ABG pH POC ABG pCO2 POC ABG pO2 ABG pO2 ABG HCO3 ABG Base Excess ABG Hemoglobin ABG Oxyhemoglobin ABG Sodium ABG Potassium ABG Chloride ABG Glucose VBG pH Oxyhemoglobin Carboxyhemoglobin Sodium Potassium Chloride Carbon Dioxide BUN Creatinine Glucose POC Glucose 193 H 138 H Random Insulin C-Peptide Lactic Acid Calcium Ionized Calcium 4.4 L Phosphorus Magnesium AST ALT Alkaline Phosphatase Lactate Dehydrogenase NT-Pro-B Natriuret Pep Total Protein Albumin Arterial Blood Glucose Arterial Blood Ionized Calcium Urine WBC (Auto) Vancomycin Trough Phenytoin Crossmatch 10/07/20 10/08/20 10/08/20 23:41 04:20 05:30 WBC RBC Hgb Hct MCV MCH MCHC RDW Plt Count Lymph % (Auto) [place] % (Auto) Lymph # (Auto) [place] # (Auto) Baso # (Auto) Seg Neutrophils % Seg Neuts % (Manual) Lymphocytes % (Manual) Monocytes % (Manual) Nucleated RBC % Seg Neutrophils # Seg Neutrophils # Man Lymphocytes # (Manual) Monocytes # (Manual) PT INR APTT Fibrinogen D-Dimer ABG pH 7.467 H POC ABG pCO2 POC ABG pO2 189.8 H ABG pO2 ABG HCO3 ABG Base Excess ABG Hemoglobin 10.8 L ABG Oxyhemoglobin ABG Sodium ABG Potassium ABG Chloride ABG Glucose 133 H VBG pH Oxyhemoglobin Carboxyhemoglobin Sodium Potassium Chloride Carbon Dioxide BUN Creatinine Glucose POC Glucose 118 H 114 H Random Insulin C-Peptide Lactic Acid Calcium Ionized Calcium Phosphorus Magnesium AST ALT Alkaline Phosphatase Lactate Dehydrogenase NT-Pro-B Natriuret Pep Total Protein Albumin Arterial Blood Glucose 133 H Arterial Blood Ionized Calcium 4.2 L Urine WBC (Auto) Vancomycin Trough Phenytoin Crossmatch 10/08/20 10/08/20 10/08/20 05:43 06:42 06:42 WBC 23.6 H RBC 3.54 L Hgb Hct MCV MCH MCHC RDW 17.8 H Plt Count Lymph % (Auto) [place] % (Auto) Lymph # (Auto) [place] # (Auto) Baso # (Auto) Seg Neutrophils % Seg Neuts % (Manual) 93.0 H Lymphocytes % (Manual) 3.0 L Monocytes % (Manual) Nucleated RBC % 1.0 H Seg Neutrophils # Seg Neutrophils # Man 21.9 H Lymphocytes # (Manual) 0.7 L Monocytes # (Manual) 0.9 H PT INR APTT Fibrinogen D-Dimer ABG pH POC ABG pCO2 POC ABG pO2 ABG pO2 ABG HCO3 ABG Base Excess ABG Hemoglobin ABG Oxyhemoglobin ABG Sodium ABG Potassium ABG Chloride ABG Glucose VBG pH Oxyhemoglobin Carboxyhemoglobin Sodium Potassium Chloride Carbon Dioxide BUN 28 H Creatinine 1.6 H Glucose 141 H POC Glucose 126 H Random Insulin C-Peptide Lactic Acid Calcium 7.6 L Ionized Calcium Phosphorus Magnesium AST 162 H ALT 103 H Alkaline Phosphatase Lactate Dehydrogenase NT-Pro-B Natriuret Pep Total Protein 5.4 L Albumin 2.7 L Arterial Blood Glucose Arterial Blood Ionized Calcium Urine WBC (Auto) Vancomycin Trough Phenytoin Crossmatch 1210/08/20 10/08/20 11:20 16:05 20:14 WBC RBC Hgb Hct MCV MCH MCHC RDW Plt Count Lymph % (Auto) [place] % (Auto) Lymph # (Auto) [place] # (Auto) Baso # (Auto) Seg Neutrophils % Seg Neuts % (Manual) Lymphocytes % (Manual) Monocytes % (Manual) Nucleated RBC % Seg Neutrophils # Seg Neutrophils # Man Lymphocytes # (Manual) Monocytes # (Manual) PT INR APTT Fibrinogen D-Dimer ABG pH POC ABG pCO2 POC ABG pO2 ABG pO2 ABG HCO3 ABG Base Excess ABG Hemoglobin ABG Oxyhemoglobin ABG Sodium ABG Potassium ABG Chloride ABG Glucose VBG pH Oxyhemoglobin Carboxyhemoglobin Sodium Potassium Chloride Carbon Dioxide BUN Creatinine Glucose POC Glucose 127 H 172 H 147 H Random Insulin C-Peptide Lactic Acid Calcium Ionized Calcium Phosphorus Magnesium AST ALT Alkaline Phosphatase Lactate Dehydrogenase NT-Pro-B Natriuret Pep Total Protein Albumin Arterial Blood Glucose Arterial Blood Ionized Calcium Urine WBC (Auto) Vancomycin Trough Phenytoin Crossmatch 10/08/20 10/08/20 10/09/20 21:27 23:24 02:10 WBC RBC Hgb Hct MCV MCH MCHC RDW Plt Count Lymph % (Auto) [place] % (Auto) Lymph # (Auto) [place] # (Auto) Baso # (Auto) Seg Neutrophils % Seg Neuts % (Manual) Lymphocytes % (Manual) Monocytes % (Manual) Nucleated RBC % Seg Neutrophils # Seg Neutrophils # Man Lymphocytes # (Manual) Monocytes # (Manual) PT INR APTT Fibrinogen D-Dimer ABG pH POC ABG pCO2 POC ABG pO2 ABG pO2 ABG HCO3 ABG Base Excess ABG Hemoglobin ABG Oxyhemoglobin ABG Sodium ABG Potassium ABG Chloride ABG Glucose VBG pH Oxyhemoglobin Carboxyhemoglobin Sodium Potassium Chloride Carbon Dioxide BUN Creatinine Glucose POC Glucose 140 H 135 H 111 H Random Insulin C-Peptide Lactic Acid Calcium Ionized Calcium Phosphorus Magnesium AST ALT Alkaline Phosphatase Lactate Dehydrogenase NT-Pro-B Natriuret Pep Total Protein Albumin Arterial Blood Glucose Arterial Blood Ionized Calcium Urine WBC (Auto) Vancomycin Trough Phenytoin Crossmatch 10/09/20 10/09/20 10/09/20 03:44 04:39 05:46 WBC 19.7 H RBC 3.51 L Hgb Hct MCV MCH MCHC RDW 17.7 H Plt Count Lymph % (Auto) [place] % (Auto) Lymph # (Auto) [place] # (Auto) Baso # (Auto) Seg Neutrophils % Seg Neuts % (Manual) 86.0 H Lymphocytes % (Manual) 4.0 L Monocytes % (Manual) 9.0 H Nucleated RBC % Seg Neutrophils # Seg Neutrophils # Man 16.9 H Lymphocytes # (Manual) 0.8 L Monocytes # (Manual) 1.8 H PT INR APTT Fibrinogen D-Dimer ABG pH 7.513 H POC ABG pCO2 POC ABG pO2 33.6 L ABG pO2 ABG HCO3 ABG Base Excess ABG Hemoglobin 11.1 L ABG Oxyhemoglobin 70.2 L ABG Sodium ABG Potassium 3.2 L ABG Chloride 108.0 H ABG Glucose 108 H VBG pH Oxyhemoglobin Carboxyhemoglobin Sodium Potassium Chloride Carbon Dioxide BUN Creatinine Glucose POC Glucose 109 H Random Insulin C-Peptide Lactic Acid Calcium Ionized Calcium Phosphorus Magnesium AST ALT Alkaline Phosphatase Lactate Dehydrogenase NT-Pro-B Natriuret Pep Total Protein Albumin Arterial Blood Glucose 108 H Arterial Blood Ionized Calcium 4.3 L Urine WBC (Auto) Vancomycin Trough Phenytoin Crossmatch 10/09/20 10/10/20 10/10/20 05:46 04:00 04:00 WBC 18.4 H RBC Hgb Hct MCV MCH MCHC RDW 17.5 H Plt Count Lymph % (Auto) 9.8 L [place] % (Auto) 8.8 H Lymph # (Auto) [place] # (Auto) 1.6 H Baso # (Auto) Seg Neutrophils % 80.0 H Seg Neuts % (Manual) Lymphocytes % (Manual) Monocytes % (Manual) Nucleated RBC % Seg Neutrophils # 14.7 H Seg Neutrophils # Man Lymphocytes # (Manual) Monocytes # (Manual) PT INR APTT Fibrinogen D-Dimer ABG pH POC ABG pCO2 POC ABG pO2 ABG pO2 ABG HCO3 ABG Base Excess ABG Hemoglobin ABG Oxyhemoglobin ABG Sodium ABG Potassium ABG Chloride ABG Glucose VBG pH Oxyhemoglobin Carboxyhemoglobin Sodium 146 H Potassium 3.2 L 2.9 L* Chloride 108.9 H 112.6 H Carbon Dioxide BUN 34 H 28 H Creatinine 1.4 H 1.3 H Glucose 109 H 101 H POC Glucose Random Insulin C-Peptide Lactic Acid Calcium 7.6 L 7.8 L Ionized Calcium Phosphorus Magnesium AST 137 H 122 H ALT 99 H 81 H Alkaline Phosphatase Lactate Dehydrogenase NT-Pro-B Natriuret Pep Total Protein 5.1 L 5.2 L Albumin 2.6 L 2.7 L Arterial Blood Glucose Arterial Blood Ionized Calcium Urine WBC (Auto) Vancomycin Trough Phenytoin Crossmatch 10/10/20 10/10/20 10/11/20 04:42 09:50 00:44 WBC RBC Hgb Hct MCV MCH MCHC RDW Plt Count Lymph % (Auto) [place] % (Auto) Lymph # (Auto) [place] # (Auto) Baso # (Auto) Seg Neutrophils % Seg Neuts % (Manual) Lymphocytes % (Manual) Monocytes % (Manual) Nucleated RBC % Seg Neutrophils # Seg Neutrophils # Man Lymphocytes # (Manual) Monocytes # (Manual) PT INR APTT Fibrinogen D-Dimer ABG pH 7.534 H POC ABG pCO2 POC ABG pO2 ABG pO2 95.2 H ABG HCO3 ABG Base Excess ABG Hemoglobin 11.3 L ABG Oxyhemoglobin ABG Sodium ABG Potassium ABG Chloride ABG Glucose VBG pH Oxyhemoglobin Carboxyhemoglobin Sodium Potassium Chloride Carbon Dioxide BUN Creatinine Glucose POC Glucose 109 H 106 H Random Insulin C-Peptide Lactic Acid Calcium Ionized Calcium Phosphorus Magnesium AST ALT Alkaline Phosphatase Lactate Dehydrogenase NT-Pro-B Natriuret Pep Total Protein Albumin Arterial Blood Glucose Arterial Blood Ionized Calcium Urine WBC (Auto) Vancomycin Trough Phenytoin Crossmatch 10/11/20 10/11/20 10/11/20 04:00 04:00 06:08 WBC 27.0 H RBC Hgb Hct MCV MCH MCHC RDW 17.7 H Plt Count Lymph % (Auto) 6.3 L [place] % (Auto) Lymph # (Auto) [place] # (Auto) 1.5 H Baso # (Auto) Seg Neutrophils % 87.1 H Seg Neuts % (Manual) Lymphocytes % (Manual) Monocytes % (Manual) Nucleated RBC % Seg Neutrophils # 23.5 H Seg Neutrophils # Man Lymphocytes # (Manual) Monocytes # (Manual) PT INR APTT Fibrinogen D-Dimer ABG pH POC ABG pCO2 POC ABG pO2 ABG pO2 ABG HCO3 ABG Base Excess ABG Hemoglobin ABG Oxyhemoglobin ABG Sodium ABG Potassium ABG Chloride ABG Glucose VBG pH Oxyhemoglobin Carboxyhemoglobin Sodium Potassium 3.2 L Chloride 110.4 H Carbon Dioxide 19 L BUN 22 H Creatinine Glucose 116 H POC Glucose 107 H Random Insulin C-Peptide Lactic Acid Calcium 7.7 L Ionized Calcium Phosphorus Magnesium 1.60 L AST ALT Alkaline Phosphatase Lactate Dehydrogenase NT-Pro-B Natriuret Pep Total Protein Albumin Arterial Blood Glucose Arterial Blood Ionized Calcium Urine WBC (Auto) Vancomycin Trough Phenytoin Crossmatch 10/11/20 10/11/20 10/12/20 11:41 13:26 03:52 WBC RBC Hgb Hct MCV MCH MCHC RDW Plt Count Lymph % (Auto) [place] % (Auto) Lymph # (Auto) [place] # (Auto) Baso # (Auto) Seg Neutrophils % Seg Neuts % (Manual) Lymphocytes % (Manual) Monocytes % (Manual) Nucleated RBC % Seg Neutrophils # Seg Neutrophils # Man Lymphocytes # (Manual) Monocytes # (Manual) PT INR APTT Fibrinogen D-Dimer ABG pH POC ABG pCO2 POC ABG pO2 ABG pO2 ABG HCO3 ABG Base Excess ABG Hemoglobin ABG Oxyhemoglobin ABG Sodium ABG Potassium ABG Chloride ABG Glucose VBG pH Oxyhemoglobin Carboxyhemoglobin Sodium Potassium Chloride Carbon Dioxide BUN Creatinine Glucose POC Glucose 116 H 114 H Random Insulin C-Peptide Lactic Acid Calcium Ionized Calcium Phosphorus Magnesium AST ALT Alkaline Phosphatase Lactate Dehydrogenase NT-Pro-B Natriuret Pep Total Protein Albumin Arterial Blood Glucose Arterial Blood Ionized Calcium Urine WBC (Auto) 24.0 H Vancomycin Trough Phenytoin Crossmatch 10/12/20 10/12/20 10/12/20 04:24 14:47 21:33 WBC RBC Hgb Hct MCV MCH MCHC RDW Plt Count Lymph % (Auto) [place] % (Auto) Lymph # (Auto) [place] # (Auto) Baso # (Auto) Seg Neutrophils % Seg Neuts % (Manual) Lymphocytes % (Manual) Monocytes % (Manual) Nucleated RBC % Seg Neutrophils # Seg Neutrophils # Man Lymphocytes # (Manual) Monocytes # (Manual) PT INR APTT Fibrinogen D-Dimer ABG pH POC ABG pCO2 POC ABG pO2 ABG pO2 ABG HCO3 ABG Base Excess ABG Hemoglobin ABG Oxyhemoglobin ABG Sodium ABG Potassium ABG Chloride ABG Glucose VBG pH Oxyhemoglobin Carboxyhemoglobin Sodium Potassium Chloride 109.9 H Carbon Dioxide 13 L BUN 18 H Creatinine Glucose 119 H POC Glucose 107 H Random Insulin C-Peptide Lactic Acid Calcium 7.6 L Ionized Calcium Phosphorus Magnesium 1.60 L AST ALT Alkaline Phosphatase Lactate Dehydrogenase NT-Pro-B Natriuret Pep Total Protein Albumin Arterial Blood Glucose Arterial Blood Ionized Calcium Urine WBC (Auto) Vancomycin Trough Phenytoin Crossmatch 10/12/20 10/12/20 10/13/20 Unknown Unknown 07:00 WBC 24.3 H RBC 3.38 L Hgb 9.8 L Hct MCV MCH MCHC RDW 18.7 H Plt Count Lymph % (Auto) [place] % (Auto) Lymph # (Auto) [place] # (Auto) Baso # (Auto) Seg Neutrophils % Seg Neuts % (Manual) 93.5 H Lymphocytes % (Manual) 4.5 L Monocytes % (Manual) Nucleated RBC % Seg Neutrophils # Seg Neutrophils # Man 22.7 H Lymphocytes # (Manual) 1.1 L Monocytes # (Manual) PT INR APTT Fibrinogen D-Dimer ABG pH POC ABG pCO2 POC ABG pO2 ABG pO2 ABG HCO3 ABG Base Excess ABG Hemoglobin ABG Oxyhemoglobin ABG Sodium ABG Potassium ABG Chloride ABG Glucose VBG pH Oxyhemoglobin Carboxyhemoglobin Sodium 135 L D Potassium 3.1 L Chloride Carbon Dioxide 17 L BUN Creatinine Glucose 510 H* POC Glucose Random Insulin C-Peptide Lactic Acid Calcium 7.2 L Ionized Calcium Phosphorus Magnesium AST ALT Alkaline Phosphatase Lactate Dehydrogenase NT-Pro-B Natriuret Pep Total Protein Albumin Arterial Blood Glucose Arterial Blood Ionized Calcium Urine WBC (Auto) Vancomycin Trough Phenytoin 5.7 L Crossmatch 10/13/20 10/13/20 10/13/20 07:00 07:00 07:18 WBC 23.6 H RBC 3.26 L Hgb 9.4 L Hct 28.7 L MCV MCH MCHC RDW 18.3 H Plt Count Lymph % (Auto) [place] % (Auto) Lymph # (Auto) [place] # (Auto) Baso # (Auto) Seg Neutrophils % Seg Neuts % (Manual) Lymphocytes % (Manual) Monocytes % (Manual) Nucleated RBC % Seg Neutrophils # Seg Neutrophils # Man Lymphocytes # (Manual) Monocytes # (Manual) PT INR APTT Fibrinogen D-Dimer ABG pH 7.473 H POC ABG pCO2 20.7 L POC ABG pO2 137.9 H ABG pO2 ABG HCO3 ABG Base Excess ABG Hemoglobin 11.2 L ABG Oxyhemoglobin 98.3 H ABG Sodium 135.9 L ABG Potassium ABG Chloride 111.0 H ABG Glucose 109 H VBG pH Oxyhemoglobin Carboxyhemoglobin 0.3 L Sodium 135 L Potassium 3.5 L Chloride 109.1 H Carbon Dioxide 18 L BUN Creatinine Glucose POC Glucose Random Insulin C-Peptide Lactic Acid Calcium 7.3 L Ionized Calcium Phosphorus Magnesium 1.60 L AST ALT Alkaline Phosphatase Lactate Dehydrogenase NT-Pro-B Natriuret Pep Total Protein Albumin Arterial Blood Glucose 109 H Arterial Blood Ionized Calcium Urine WBC (Auto) Vancomycin Trough Phenytoin Crossmatch 10/14/20 10/14/20 10/15/20 04:00 04:00 05:50 WBC 28.6 H 23.2 H RBC 3.61 L 3.43 L Hgb 9.9 L Hct 30.0 L MCV MCH MCHC RDW 18.3 H 18.2 H Plt Count Lymph % (Auto) [place] % (Auto) Lymph # (Auto) [place] # (Auto) Baso # (Auto) Seg Neutrophils % Seg Neuts % (Manual) 88.0 H 90.0 H Lymphocytes % (Manual) 5.0 L 4.0 L Monocytes % (Manual) Nucleated RBC % Seg Neutrophils # Seg Neutrophils # Man 25.2 H 20.9 H Lymphocytes # (Manual) 0.9 L Monocytes # (Manual) 1.4 H 0.9 H PT INR APTT Fibrinogen D-Dimer ABG pH POC ABG pCO2 POC ABG pO2 ABG pO2 ABG HCO3 ABG Base Excess ABG Hemoglobin ABG Oxyhemoglobin ABG Sodium ABG Potassium ABG Chloride ABG Glucose VBG pH Oxyhemoglobin Carboxyhemoglobin Sodium Potassium Chloride 109.9 H Carbon Dioxide 17 L BUN Creatinine Glucose POC Glucose Random Insulin C-Peptide Lactic Acid Calcium Ionized Calcium Phosphorus Magnesium AST ALT Alkaline Phosphatase Lactate Dehydrogenase NT-Pro-B Natriuret Pep Total Protein Albumin Arterial Blood Glucose Arterial Blood Ionized Calcium Urine WBC (Auto) Vancomycin Trough Phenytoin Crossmatch 10/15/20 10/16/20 10/17/20 05:50 11:57 04:57 WBC 15.2 H RBC 3.43 L Hgb Hct MCV MCH MCHC RDW 18.1 H Plt Count Lymph % (Auto) [place] % (Auto) Lymph # (Auto) [place] # (Auto) Baso # (Auto) Seg Neutrophils % Seg Neuts % (Manual) Lymphocytes % (Manual) Monocytes % (Manual) Nucleated RBC % Seg Neutrophils # Seg Neutrophils # Man Lymphocytes # (Manual) Monocytes # (Manual) PT INR APTT Fibrinogen D-Dimer ABG pH POC ABG pCO2 POC ABG pO2 ABG pO2 ABG HCO3 ABG Base Excess ABG Hemoglobin ABG Oxyhemoglobin ABG Sodium ABG Potassium ABG Chloride ABG Glucose VBG pH Oxyhemoglobin Carboxyhemoglobin Sodium Potassium Chloride 110.3 H Carbon Dioxide 18 L BUN Creatinine Glucose 105 H POC Glucose 111 H Random Insulin C-Peptide Lactic Acid Calcium 8.3 L Ionized Calcium Phosphorus Magnesium AST ALT Alkaline Phosphatase Lactate Dehydrogenase NT-Pro-B Natriuret Pep Total Protein Albumin Arterial Blood Glucose Arterial Blood Ionized Calcium Urine WBC (Auto) Vancomycin Trough Phenytoin Crossmatch 10/17/20 10/17/20 10/18/20 05:25 21:16 01:31 WBC RBC Hgb Hct MCV MCH MCHC RDW Plt Count Lymph % (Auto) [place] % (Auto) Lymph # (Auto) [place] # (Auto) Baso # (Auto) Seg Neutrophils % Seg Neuts % (Manual) Lymphocytes % (Manual) Monocytes % (Manual) Nucleated RBC % Seg Neutrophils # Seg Neutrophils # Man Lymphocytes # (Manual) Monocytes # (Manual) PT INR APTT Fibrinogen D-Dimer ABG pH POC ABG pCO2 POC ABG pO2 ABG pO2 ABG HCO3 ABG Base Excess ABG Hemoglobin ABG Oxyhemoglobin ABG Sodium ABG Potassium ABG Chloride ABG Glucose VBG pH Oxyhemoglobin Carboxyhemoglobin Sodium Potassium Chloride Carbon Dioxide BUN Creatinine Glucose POC Glucose 107 H 106 H 119 H Random Insulin C-Peptide Lactic Acid Calcium Ionized Calcium Phosphorus Magnesium AST ALT Alkaline Phosphatase Lactate Dehydrogenase NT-Pro-B Natriuret Pep Total Protein Albumin Arterial Blood Glucose Arterial Blood Ionized Calcium Urine WBC (Auto) Vancomycin Trough Phenytoin Crossmatch 10/18/20 10/18/20 10/19/20 05:45 11:23 01:14 WBC RBC Hgb Hct MCV MCH MCHC RDW Plt Count Lymph % (Auto) [place] % (Auto) Lymph # (Auto) [place] # (Auto) Baso # (Auto) Seg Neutrophils % Seg Neuts % (Manual) Lymphocytes % (Manual) Monocytes % (Manual) Nucleated RBC % Seg Neutrophils # Seg Neutrophils # Man Lymphocytes # (Manual) Monocytes # (Manual) PT INR APTT Fibrinogen D-Dimer ABG pH POC ABG pCO2 POC ABG pO2 ABG pO2 ABG HCO3 ABG Base Excess ABG Hemoglobin ABG Oxyhemoglobin ABG Sodium ABG Potassium ABG Chloride ABG Glucose VBG pH Oxyhemoglobin Carboxyhemoglobin Sodium Potassium Chloride Carbon Dioxide BUN Creatinine Glucose POC Glucose 106 H 115 H 108 H Random Insulin C-Peptide Lactic Acid Calcium Ionized Calcium Phosphorus Magnesium AST ALT Alkaline Phosphatase Lactate Dehydrogenase NT-Pro-B Natriuret Pep Total Protein Albumin Arterial Blood Glucose Arterial Blood Ionized Calcium Urine WBC (Auto) Vancomycin Trough Phenytoin Crossmatch 10/19/20 10/20/20 10/20/20 09:57 05:40 07:59 WBC RBC Hgb Hct MCV MCH MCHC RDW Plt Count Lymph % (Auto) [place] % (Auto) Lymph # (Auto) [place] # (Auto) Baso # (Auto) Seg Neutrophils % Seg Neuts % (Manual) Lymphocytes % (Manual) Monocytes % (Manual) Nucleated RBC % Seg Neutrophils # Seg Neutrophils # Man Lymphocytes # (Manual) Monocytes # (Manual) PT INR APTT Fibrinogen D-Dimer ABG pH POC ABG pCO2 POC ABG pO2 ABG pO2 ABG HCO3 ABG Base Excess ABG Hemoglobin ABG Oxyhemoglobin ABG Sodium ABG Potassium ABG Chloride ABG Glucose VBG pH Oxyhemoglobin Carboxyhemoglobin Sodium Potassium Chloride Carbon Dioxide BUN Creatinine Glucose 106 H POC Glucose 122 H 109 H Random Insulin C-Peptide Lactic Acid Calcium Ionized Calcium Phosphorus Magnesium AST ALT Alkaline Phosphatase Lactate Dehydrogenase NT-Pro-B Natriuret Pep Total Protein Albumin Arterial Blood Glucose Arterial Blood Ionized Calcium Urine WBC (Auto) Vancomycin Trough Phenytoin Crossmatch 10/20/20 10/20/20 10/21/20 16:52 16:52 13:54 WBC 18.8 H 17.0 H RBC Hgb Hct MCV MCH MCHC RDW 17.7 H 17.8 H Plt Count 547 H 544 H Lymph % (Auto) 11.2 L [place] % (Auto) 8.1 H Lymph # (Auto) [place] # (Auto) 1.5 H Baso # (Auto) 0.2 H Seg Neutrophils % 78.8 H Seg Neuts % (Manual) Lymphocytes % (Manual) Monocytes % (Manual) Nucleated RBC % Seg Neutrophils # 14.8 H Seg Neutrophils # Man Lymphocytes # (Manual) Monocytes # (Manual) PT INR APTT Fibrinogen D-Dimer ABG pH POC ABG pCO2 POC ABG pO2 ABG pO2 ABG HCO3 ABG Base Excess ABG Hemoglobin ABG Oxyhemoglobin ABG Sodium ABG Potassium ABG Chloride ABG Glucose VBG pH Oxyhemoglobin Carboxyhemoglobin Sodium Potassium Chloride Carbon Dioxide BUN Creatinine Glucose POC Glucose Random Insulin C-Peptide Lactic Acid Calcium Ionized Calcium Phosphorus Magnesium AST ALT Alkaline Phosphatase Lactate Dehydrogenase NT-Pro-B Natriuret Pep Total Protein Albumin Arterial Blood Glucose Arterial Blood Ionized Calcium Urine WBC (Auto) Vancomycin Trough 34.5 H Phenytoin Crossmatch 10/21/20 10/22/20 10/23/20 13:54 07:26 05:34 WBC 18.7 H 13.0 H RBC 3.64 L 3.50 L Hgb Hct 30.0 L MCV MCH MCHC 35 H RDW 17.7 H 17.6 H Plt Count 502 H 503 H Lymph % (Auto) [place] % (Auto) Lymph # (Auto) [place] # (Auto) Baso # (Auto) Seg Neutrophils % Seg Neuts % (Manual) Lymphocytes % (Manual) Monocytes % (Manual) Nucleated RBC % Seg Neutrophils # Seg Neutrophils # Man Lymphocytes # (Manual) Monocytes # (Manual) PT INR APTT Fibrinogen D-Dimer ABG pH POC ABG pCO2 POC ABG pO2 ABG pO2 ABG HCO3 ABG Base Excess ABG Hemoglobin ABG Oxyhemoglobin ABG Sodium ABG Potassium ABG Chloride ABG Glucose VBG pH Oxyhemoglobin Carboxyhemoglobin Sodium 136 L Potassium Chloride Carbon Dioxide BUN Creatinine Glucose 120 H POC Glucose Random Insulin C-Peptide Lactic Acid Calcium Ionized Calcium Phosphorus Magnesium AST ALT Alkaline Phosphatase Lactate Dehydrogenase NT-Pro-B Natriuret Pep Total Protein Albumin Arterial Blood Glucose Arterial Blood Ionized Calcium Urine WBC (Auto) Vancomycin Trough Phenytoin Crossmatch 10/23/20 10/26/20 10/27/20 05:34 10:30 07:53 WBC 13.6 H RBC 3.38 L Hgb 10.0 L Hct 28.8 L MCV MCH MCHC 35 H RDW 17.6 H Plt Count Lymph % (Auto) [place] % (Auto) Lymph # (Auto) [place] # (Auto) Baso # (Auto) Seg Neutrophils % Seg Neuts % (Manual) Lymphocytes % (Manual) Monocytes % (Manual) Nucleated RBC % Seg Neutrophils # Seg Neutrophils # Man Lymphocytes # (Manual) Monocytes # (Manual) PT INR APTT Fibrinogen D-Dimer ABG pH 7.459 H POC ABG pCO2 POC ABG pO2 ABG pO2 112.2 H ABG HCO3 ABG Base Excess ABG Hemoglobin ABG Oxyhemoglobin ABG Sodium ABG Potassium ABG Chloride ABG Glucose VBG pH Oxyhemoglobin Carboxyhemoglobin Sodium 135 L Potassium Chloride Carbon Dioxide BUN Creatinine Glucose 105 H POC Glucose Random Insulin C-Peptide Lactic Acid Calcium Ionized Calcium Phosphorus Magnesium AST ALT Alkaline Phosphatase Lactate Dehydrogenase NT-Pro-B Natriuret Pep Total Protein Albumin Arterial Blood Glucose Arterial Blood Ionized Calcium Urine WBC (Auto) Vancomycin Trough Phenytoin Crossmatch 10/27/20 10/27/20 10/28/20 07:53 11:31 05:19 WBC RBC Hgb Hct MCV MCH MCHC RDW Plt Count Lymph % (Auto) [place] % (Auto) Lymph # (Auto) [place] # (Auto) Baso # (Auto) Seg Neutrophils % Seg Neuts % (Manual) Lymphocytes % (Manual) Monocytes % (Manual) Nucleated RBC % Seg Neutrophils # Seg Neutrophils # Man Lymphocytes # (Manual) Monocytes # (Manual) PT INR APTT Fibrinogen D-Dimer ABG pH POC ABG pCO2 POC ABG pO2 ABG pO2 ABG HCO3 ABG Base Excess ABG Hemoglobin ABG Oxyhemoglobin ABG Sodium ABG Potassium ABG Chloride ABG Glucose VBG pH Oxyhemoglobin Carboxyhemoglobin Sodium Potassium Chloride Carbon Dioxide BUN 20 H Creatinine Glucose 112 H POC Glucose 113 H 112 H Random Insulin C-Peptide Lactic Acid Calcium Ionized Calcium Phosphorus Magnesium AST 83 H ALT Alkaline Phosphatase Lactate Dehydrogenase NT-Pro-B Natriuret Pep Total Protein Albumin 3.8 L Arterial Blood Glucose Arterial Blood Ionized Calcium Urine WBC (Auto) Vancomycin Trough Phenytoin Crossmatch 10/29/20 10/29/20 10/29/20 07:56 07:56 11:37 WBC 13.6 H RBC Hgb Hct MCV MCH MCHC RDW 17.0 H Plt Count Lymph % (Auto) [place] % (Auto) Lymph # (Auto) [place] # (Auto) Baso # (Auto) Seg Neutrophils % Seg Neuts % (Manual) 80.0 H Lymphocytes % (Manual) Monocytes % (Manual) Nucleated RBC % Seg Neutrophils # Seg Neutrophils # Man 10.9 H Lymphocytes # (Manual) Monocytes # (Manual) PT INR APTT Fibrinogen D-Dimer ABG pH POC ABG pCO2 POC ABG pO2 ABG pO2 ABG HCO3 ABG Base Excess ABG Hemoglobin ABG Oxyhemoglobin ABG Sodium ABG Potassium ABG Chloride ABG Glucose VBG pH Oxyhemoglobin Carboxyhemoglobin Sodium Potassium Chloride Carbon Dioxide BUN Creatinine Glucose POC Glucose 108 H Random Insulin C-Peptide Lactic Acid Calcium Ionized Calcium Phosphorus 4.70 H Magnesium AST ALT Alkaline Phosphatase Lactate Dehydrogenase NT-Pro-B Natriuret Pep Total Protein Albumin Arterial Blood Glucose Arterial Blood Ionized Calcium Urine WBC (Auto) Vancomycin Trough Phenytoin Crossmatch 10/29/20 10/30/20 10/30/20 13:32 12:11 17:19 WBC RBC Hgb Hct MCV MCH MCHC RDW Plt Count Lymph % (Auto) [place] % (Auto) Lymph # (Auto) [place] # (Auto) Baso # (Auto) Seg Neutrophils % Seg Neuts % (Manual) Lymphocytes % (Manual) Monocytes % (Manual) Nucleated RBC % Seg Neutrophils # Seg Neutrophils # Man Lymphocytes # (Manual) Monocytes # (Manual) PT INR APTT Fibrinogen D-Dimer ABG pH POC ABG pCO2 POC ABG pO2 ABG pO2 ABG HCO3 ABG Base Excess ABG Hemoglobin ABG Oxyhemoglobin ABG Sodium ABG Potassium ABG Chloride ABG Glucose VBG pH Oxyhemoglobin Carboxyhemoglobin Sodium Potassium Chloride Carbon Dioxide BUN Creatinine Glucose POC Glucose 108 H 106 H 107 H Random Insulin C-Peptide Lactic Acid Calcium Ionized Calcium Phosphorus Magnesium AST ALT Alkaline Phosphatase Lactate Dehydrogenase NT-Pro-B Natriuret Pep Total Protein Albumin Arterial Blood Glucose Arterial Blood Ionized Calcium Urine WBC (Auto) Vancomycin Trough Phenytoin Crossmatch 10/31/20 10/31/20 11/01/20 03:20 05:43 04:55 WBC RBC Hgb Hct MCV MCH MCHC RDW Plt Count Lymph % (Auto) [place] % (Auto) Lymph # (Auto) [place] # (Auto) Baso # (Auto) Seg Neutrophils % Seg Neuts % (Manual) Lymphocytes % (Manual) Monocytes % (Manual) Nucleated RBC % Seg Neutrophils # Seg Neutrophils # Man Lymphocytes # (Manual) Monocytes # (Manual) PT INR APTT Fibrinogen D-Dimer ABG pH POC ABG pCO2 POC ABG pO2 ABG pO2 ABG HCO3 ABG Base Excess ABG Hemoglobin ABG Oxyhemoglobin ABG Sodium ABG Potassium ABG Chloride ABG Glucose VBG pH Oxyhemoglobin Carboxyhemoglobin Sodium Potassium Chloride Carbon Dioxide BUN Creatinine Glucose POC Glucose 108 H 115 H 108 H Random Insulin C-Peptide Lactic Acid Calcium Ionized Calcium Phosphorus Magnesium AST ALT Alkaline Phosphatase Lactate Dehydrogenase NT-Pro-B Natriuret Pep Total Protein Albumin Arterial Blood Glucose Arterial Blood Ionized Calcium Urine WBC (Auto) Vancomycin Trough Phenytoin Crossmatch 11/01/20 11/01/20 11/01/20 05:01 16:47 21:36 WBC RBC Hgb Hct MCV MCH MCHC RDW Plt Count Lymph % (Auto) [place] % (Auto) Lymph # (Auto) [place] # (Auto) Baso # (Auto) Seg Neutrophils % Seg Neuts % (Manual) Lymphocytes % (Manual) Monocytes % (Manual) Nucleated RBC % Seg Neutrophils # Seg Neutrophils # Man Lymphocytes # (Manual) Monocytes # (Manual) PT INR APTT Fibrinogen D-Dimer ABG pH POC ABG pCO2 POC ABG pO2 ABG pO2 ABG HCO3 ABG Base Excess ABG Hemoglobin ABG Oxyhemoglobin ABG Sodium ABG Potassium ABG Chloride ABG Glucose VBG pH Oxyhemoglobin Carboxyhemoglobin Sodium 135 L Potassium Chloride Carbon Dioxide BUN Creatinine Glucose POC Glucose 116 H 112 H Random Insulin C-Peptide Lactic Acid Calcium Ionized Calcium Phosphorus Magnesium AST 93 H ALT Alkaline Phosphatase 132 H Lactate Dehydrogenase NT-Pro-B Natriuret Pep Total Protein Albumin 3.6 L Arterial Blood Glucose Arterial Blood Ionized Calcium Urine WBC (Auto) Vancomycin Trough Phenytoin Crossmatch 11/02/20 11/02/20 11/02/20 17:45 19:19 19:19 WBC RBC Hgb Hct MCV MCH MCHC RDW Plt Count Lymph % (Auto) [place] % (Auto) Lymph # (Auto) [place] # (Auto) Baso # (Auto) Seg Neutrophils % Seg Neuts % (Manual) Lymphocytes % (Manual) Monocytes % (Manual) Nucleated RBC % Seg Neutrophils # Seg Neutrophils # Man Lymphocytes # (Manual) Monocytes # (Manual) PT INR APTT Fibrinogen D-Dimer ABG pH POC ABG pCO2 POC ABG pO2 ABG pO2 ABG HCO3 ABG Base Excess ABG Hemoglobin ABG Oxyhemoglobin ABG Sodium ABG Potassium ABG Chloride ABG Glucose VBG pH Oxyhemoglobin Carboxyhemoglobin Sodium Potassium Chloride Carbon Dioxide BUN Creatinine Glucose POC Glucose 107 H Random Insulin 43.2 H C-Peptide 6.23 H Lactic Acid Calcium Ionized Calcium Phosphorus Magnesium AST ALT Alkaline Phosphatase Lactate Dehydrogenase NT-Pro-B Natriuret Pep Total Protein Albumin Arterial Blood Glucose Arterial Blood Ionized Calcium Urine WBC (Auto) Vancomycin Trough Phenytoin Crossmatch 11/03/20 11/04/20 11/04/20 21:49 05:00 05:00 WBC 13.8 H RBC Hgb Hct MCV MCH MCHC RDW 16.6 H Plt Count Lymph % (Auto) 11.8 L [place] % (Auto) 11.0 H Lymph # (Auto) [place] # (Auto) 1.5 H Baso # (Auto) Seg Neutrophils % 75.1 H Seg Neuts % (Manual) Lymphocytes % (Manual) Monocytes % (Manual) Nucleated RBC % Seg Neutrophils # 10.4 H Seg Neutrophils # Man Lymphocytes # (Manual) Monocytes # (Manual) PT INR APTT Fibrinogen D-Dimer ABG pH POC ABG pCO2 POC ABG pO2 ABG pO2 ABG HCO3 ABG Base Excess ABG Hemoglobin ABG Oxyhemoglobin ABG Sodium ABG Potassium ABG Chloride ABG Glucose VBG pH Oxyhemoglobin Carboxyhemoglobin Sodium Potassium Chloride Carbon Dioxide BUN Creatinine Glucose 112 H POC Glucose 109 H Random Insulin C-Peptide Lactic Acid Calcium Ionized Calcium Phosphorus Magnesium AST 90 H ALT Alkaline Phosphatase Lactate Dehydrogenase NT-Pro-B Natriuret Pep Total Protein Albumin 3.8 L Arterial Blood Glucose Arterial Blood Ionized Calcium Urine WBC (Auto) Vancomycin Trough Phenytoin Crossmatch 11/04/20 11/04/20 11/05/20 06:03 23:47 07:47 WBC RBC Hgb Hct MCV MCH MCHC RDW Plt Count Lymph % (Auto) [place] % (Auto) Lymph # (Auto) [place] # (Auto) Baso # (Auto) Seg Neutrophils % Seg Neuts % (Manual) Lymphocytes % (Manual) Monocytes % (Manual) Nucleated RBC % Seg Neutrophils # Seg Neutrophils # Man Lymphocytes # (Manual) Monocytes # (Manual) PT INR APTT Fibrinogen D-Dimer ABG pH POC ABG pCO2 POC ABG pO2 ABG pO2 ABG HCO3 ABG Base Excess ABG Hemoglobin ABG Oxyhemoglobin ABG Sodium ABG Potassium ABG Chloride ABG Glucose VBG pH Oxyhemoglobin Carboxyhemoglobin Sodium Potassium Chloride Carbon Dioxide BUN Creatinine Glucose POC Glucose 107 H 121 H 111 H Random Insulin C-Peptide Lactic Acid Calcium Ionized Calcium Phosphorus Magnesium AST ALT Alkaline Phosphatase Lactate Dehydrogenase NT-Pro-B Natriuret Pep Total Protein Albumin Arterial Blood Glucose Arterial Blood Ionized Calcium Urine WBC (Auto) Vancomycin Trough Phenytoin Crossmatch 11/05/20 11/06/20 11/06/20 23:24 17:04 23:36 WBC RBC Hgb Hct MCV MCH MCHC RDW Plt Count Lymph % (Auto) [place] % (Auto) Lymph # (Auto) [place] # (Auto) Baso # (Auto) Seg Neutrophils % Seg Neuts % (Manual) Lymphocytes % (Manual) Monocytes % (Manual) Nucleated RBC % Seg Neutrophils # Seg Neutrophils # Man Lymphocytes # (Manual) Monocytes # (Manual) PT INR APTT Fibrinogen D-Dimer ABG pH POC ABG pCO2 POC ABG pO2 ABG pO2 ABG HCO3 ABG Base Excess ABG Hemoglobin ABG Oxyhemoglobin ABG Sodium ABG Potassium ABG Chloride ABG Glucose VBG pH Oxyhemoglobin Carboxyhemoglobin Sodium Potassium Chloride Carbon Dioxide BUN Creatinine Glucose POC Glucose 111 H 112 H 108 H Random Insulin C-Peptide Lactic Acid Calcium Ionized Calcium Phosphorus Magnesium AST ALT Alkaline Phosphatase Lactate Dehydrogenase NT-Pro-B Natriuret Pep Total Protein Albumin Arterial Blood Glucose Arterial Blood Ionized Calcium Urine WBC (Auto) Vancomycin Trough Phenytoin Crossmatch 11/07/20 11/07/20 11/07/20 03:33 04:44 04:44 WBC RBC Hgb Hct MCV MCH MCHC RDW 16.6 H Plt Count Lymph % (Auto) [place] % (Auto) 13.1 H Lymph # (Auto) [place] # (Auto) 1.3 H Baso # (Auto) Seg Neutrophils % Seg Neuts % (Manual) Lymphocytes % (Manual) Monocytes % (Manual) Nucleated RBC % Seg Neutrophils # Seg Neutrophils # Man Lymphocytes # (Manual) Monocytes # (Manual) PT INR APTT Fibrinogen D-Dimer ABG pH POC ABG pCO2 POC ABG pO2 ABG pO2 ABG HCO3 ABG Base Excess ABG Hemoglobin ABG Oxyhemoglobin ABG Sodium ABG Potassium ABG Chloride ABG Glucose VBG pH Oxyhemoglobin Carboxyhemoglobin Sodium Potassium Chloride Carbon Dioxide BUN Creatinine Glucose 103 H POC Glucose 109 H Random Insulin C-Peptide Lactic Acid Calcium Ionized Calcium Phosphorus 5.30 H Magnesium AST ALT Alkaline Phosphatase Lactate Dehydrogenase NT-Pro-B Natriuret Pep Total Protein Albumin Arterial Blood Glucose Arterial Blood Ionized Calcium Urine WBC (Auto) Vancomycin Trough Phenytoin Crossmatch 11/07/20 11/07/20 11/08/20 15:58 23:46 07:30 WBC RBC Hgb Hct MCV MCH MCHC RDW Plt Count Lymph % (Auto) [place] % (Auto) Lymph # (Auto) [place] # (Auto) Baso # (Auto) Seg Neutrophils % Seg Neuts % (Manual) Lymphocytes % (Manual) Monocytes % (Manual) Nucleated RBC % Seg Neutrophils # Seg Neutrophils # Man Lymphocytes # (Manual) Monocytes # (Manual) PT INR APTT Fibrinogen D-Dimer ABG pH POC ABG pCO2 POC ABG pO2 ABG pO2 ABG HCO3 ABG Base Excess ABG Hemoglobin ABG Oxyhemoglobin ABG Sodium ABG Potassium ABG Chloride ABG Glucose VBG pH Oxyhemoglobin Carboxyhemoglobin Sodium Potassium Chloride Carbon Dioxide BUN Creatinine Glucose POC Glucose 108 H 106 H 109 H Random Insulin C-Peptide Lactic Acid Calcium Ionized Calcium Phosphorus Magnesium AST ALT Alkaline Phosphatase Lactate Dehydrogenase NT-Pro-B Natriuret Pep Total Protein Albumin Arterial Blood Glucose Arterial Blood Ionized Calcium Urine WBC (Auto) Vancomycin Trough Phenytoin Crossmatch 11/08/20 11/08/20 11/09/20 11:48 23:32 17:10 WBC RBC Hgb Hct MCV MCH MCHC RDW Plt Count Lymph % (Auto) [place] % (Auto) Lymph # (Auto) [place] # (Auto) Baso # (Auto) Seg Neutrophils % Seg Neuts % (Manual) Lymphocytes % (Manual) Monocytes % (Manual) Nucleated RBC % Seg Neutrophils # Seg Neutrophils # Man Lymphocytes # (Manual) Monocytes # (Manual) PT INR APTT Fibrinogen D-Dimer ABG pH POC ABG pCO2 POC ABG pO2 ABG pO2 ABG HCO3 ABG Base Excess ABG Hemoglobin ABG Oxyhemoglobin ABG Sodium ABG Potassium ABG Chloride ABG Glucose VBG pH Oxyhemoglobin Carboxyhemoglobin Sodium Potassium Chloride Carbon Dioxide BUN Creatinine Glucose POC Glucose 110 H 116 H 112 H Random Insulin C-Peptide Lactic Acid Calcium Ionized Calcium Phosphorus Magnesium AST ALT Alkaline Phosphatase Lactate Dehydrogenase NT-Pro-B Natriuret Pep Total Protein Albumin Arterial Blood Glucose Arterial Blood Ionized Calcium Urine WBC (Auto) Vancomycin Trough Phenytoin Crossmatch 11/09/20 11/10/20 11/10/20 21:42 05:49 07:17 WBC RBC Hgb Hct MCV MCH MCHC RDW Plt Count Lymph % (Auto) [place] % (Auto) Lymph # (Auto) [place] # (Auto) Baso # (Auto) Seg Neutrophils % Seg Neuts % (Manual) Lymphocytes % (Manual) Monocytes % (Manual) Nucleated RBC % Seg Neutrophils # Seg Neutrophils # Man Lymphocytes # (Manual) Monocytes # (Manual) PT INR APTT Fibrinogen D-Dimer ABG pH POC ABG pCO2 POC ABG pO2 ABG pO2 ABG HCO3 ABG Base Excess ABG Hemoglobin ABG Oxyhemoglobin ABG Sodium ABG Potassium ABG Chloride ABG Glucose VBG pH Oxyhemoglobin Carboxyhemoglobin Sodium Potassium Chloride Carbon Dioxide BUN Creatinine Glucose POC Glucose 110 H 108 H 111 H Random Insulin C-Peptide Lactic Acid Calcium Ionized Calcium Phosphorus Magnesium AST ALT Alkaline Phosphatase Lactate Dehydrogenase NT-Pro-B Natriuret Pep Total Protein Albumin Arterial Blood Glucose Arterial Blood Ionized Calcium Urine WBC (Auto) Vancomycin Trough Phenytoin Crossmatch
--- NOTE | 2020-11-10 15:06 | Progress Note ---
Assessment and Plan Assessment and plan: 30 y/o female patient with Eclampsia/help syndrome, s/p emergent section with DIC, hemorrhage, supracervical abdominal hysterectomy, acute respiratory failure , tracheostomy on T-piece with morbid obesity, s/p cardiac arrest 12/08/2019 status post CPR per ACLS, acute hypoxic brain injury Acute kidney injury improved, severe shock requiring pressors, DIC septic shock improved, history of C. difficile colitis on vancomycin. Tracheostomy on T-piece, continues to require 5 L of oxygen. COVID-19 negative C. difficile positive; Patient on contact isolation Completed treatment --Afebrile: Blood, urine, tracheal aspirate cultures New cultures negative to date Monitor off antibiotics Closely monitor --Acute hypoxic respiratory failure: Tracheostomy on T-piece , 5 L oxygen, saturating 100% Nebulizers, continue oxygen titrate O2 sats to more than 90% Pulmonary critical following --Sepsis; received antibiotics Continue to monitor off antibiotics ID following --Cardiac arrest; 10/07/2020 ,status post CPR --COVID-19 test negative; 10/08/2020 --C. difficile colitis test; positive; 10/16/2020 --Acute metabolic encephalopathy --Acute hypoxic brain injury; Supportive care, closely monitor --Acute kidney injury; vasomotor nephropathy Resolved, renal function within normal limits, closely monitor --Shock; monitor of pressors Blood pressures reasonable level --DIC; sepsis, septic shock, resolved --History of preeclampsia; / hemorrhage Status post hysterectomy --History of C. difficile colitis; completed oral vancomycin --DVT/SVT and right upper extremity Very poor prognosis, Consults recommendations noted and appreciated We will closely monitor the patient and adjust management as needed Plan of care reviewed with the patient's nurse. Brief history; 30 year old -[place] female CHE 10/25/20 at 36w5d who presents with seizures in triage on 10/02/20. Pt was not able to provide history but per pt's , she presented to the hospital to return a 24 hour urine specimen for analysis. She then suddenly reported that she did not feel good. She was taken to labor and delivery and shortly after arrival, she began seizing. During this time, a code met was called because the patient became hypoxic. She was then noted to be without a pulse. Chest compressions were started immediately, and the patient was emergently taken to the operating room for delivery of the fetus. Off note, This patient has had care at [facility] with comanagement by [facility] since 11 wks complicated by ADHD, morbid obesity, generalized anxiety disorder, panic attacks, chronic narcotic use, fibromyalgia, GERD, Irritable Bowel Syndrome, Migraines, h/o endometrial ablation and ovarian vein embolization, genital herpes, insomnia, LGA fetus, nausea and vomiting, polyhydramnios, quad screen positive for Down's Syndrome, and previous x 3. She is GBS negative. , Patient tracheostomy on ventilatory support, unable to wean, continue supportive care poor prognosis 11:30: Pt brought to L&D triage for evaluation of possible labor. Pt accompanied by her spouse. Pt spouse poor historian; unable to obtain history- allergies at this time. Pt taken from registration to triage area via WC. Pt unresponsive, actively seizing with snorous respirations. security lead, Kassy, called and requesting assistance. 11:35: Multiple staff at bedside. Pt 02 sat 67% on nonrebreather, unable to read BP . Yifan Theodore CRNA, at bedside for intubation and assistance with IV insertion. INT attempt by multiple RNs unsuccessful at this time. 11:42: Pt being bagged by KORIN, 02% 79%. No pulse palpated, compressions on at this time; bharati young called and Dr. Newberry preparing OR for emergent c/s. 11:44: Continued compressions on stretcher while transporting pt to OR 1. Pt being bagged with jaw thrust manuever in place by KORIN Stringer student. 11:45: Arrival to OR 1. Dr. Newberry and Dr. Portillo present for emergent c/s. Code team arrived for continued care. patient revived and c/s done Patient has been bleeding from C/s site followed by supracervical hysterectomy for severe bleeding, Patient transfused multiple units of PRBC, Patient in DIC. Patient transferred to the ICU Hospital course; 10/03. Patient seen and examined at bedside this morning. Patient is nonresponsive and mechanically ventilated. On pressors. Labs reviewed-has leukocytosis, anemia, thrombocytopenia, ADOLPH and lactic acidosis. Started on IV antibiotics to cover possible sepsis secondary to DIC. Hematology oncology recommendations appreciated-needs additional cryoprecipitate and FFP. Monitor D-dimer, fibrinogen and frequent labs. Nephrology consulted for lactic acidosis and ADOLPH. 10/04. Remains mechanically ventilated. [place] antibiotics. Labs shows improved acidosis - lactic acid 3.5. Hb drop noted. Getting transfused 2 units PRBCs. Platelet count is ~40k. Continue to monitor labs closely. Critical care team on board. 10/05; xray reviewed, concerning for multifocal infilrate, likely underlying Pneumonia, will add ID consult to assist with management of this critically ill patient, start tube feed, closely monitor renal system 10/06: Resumed care, remains on mechanical ventilation. No active bleeding, H&H stable. Continue to monitor CBC and BMP. Continue IV antibiotic for underlying pneumonia. Follow critical care and ID recommendation. 10/07: Remains on mechanical ventilation. No active bleeding, H&H stable. Critical care following, wean off ventilation as tolerated. 10/08: Patient had another cardiac arrest last night. Remains on mechanical ventilation, update family. Continue supportive care -poor prognosis 10/09: Called patient mother and discussed about patient care and management. Answered all question to best of my knowledge and family satisfaction. Patient remains on mechanical ventilation, cardiac arrest x2 so far. Critically sick, poor prognosis 10/10: remains on mechanical ventilation. h/h stable, no active bleeding. monitor CBC/BMP 10/11: WBC trended up with diarrhea, started on vancomycin po. remains on MV, off pressor, tolerating TF 10/12: remains on MV, off pressor, tolerating TF. called family for update but unable to reach, could not leave message as it was full. cont supportive care, wean off vent as tolerated. 10/13/2020; patient is on mechanical ventilation, tolerating tube feeding. Patient has labored breathing. Neuro was consulted and recommend MRI. Patient is on Precedex. Rectal tube in place. 10/14/2020; patient is on mechanical ventilation, Precedex. Patient had fever and blood culture ordered. Patient is on IV vancomycin per ID recommendation. Neuro consulted and recommend MRI. Continue to monitor. Prognosis is guarded. 10/15/2020; patient is on mechanical ventilation, Precedex. Patient had fever and blood culture ordered. Patient is on IV vancomycin per ID recommendation. Neuro consulted and recommend MRI. Continue to monitor. Prognosis is guarded. 10/17: Remains with C.DIFF and Bactermia, Poor prognosis. No purposeful movement. MRI and EEG discussed with Intensvisit, Continue aggressive BP control. 10/18: Blood pressure better controlled MRI done 10/15 shows mild improvement in edema. We will continue to monitor mother was at bedside yesterday. Nursing documentation trach and PEG discussed with the mother including goals of care. She is still in denial about the gravity of her daughters her condition which is understandable considering her age. Continue aggressive management at this time. Await for bacteremia to clear by ID before placing PICC line. 10/19: Patient for possible PEG and Trach, ID following, repeat cultures remain negative. Poor prognosis 10/20: Pt noted to DVT and SVT in the RUE, Vascular consult and will also obtain Hematology for possible considering changing in Anticoagulation. CONTINUE TO MONITOR H/H and PLT. Family updated by [employer]ens[employer]. Heparin gtt started. Will check CBC and BMP 10/21: Continue supporive care, Diarrhea now resolving, But still with persistent Fever, May need repeat CT/AP per ID, still with profused Encephalopathy 10/22: Continue supportive care, weaning, awaiting repeat Imaging. FOLLOW Fever curve. Enoxparin restarted 10/23: Continue supportive care, wean as tolerated. 10/24; Started on CPAP trial, discussed with pulmonary, still with diarrhea. 10/25: Patients seen and examined, no clinical changes, still with diarrhea. ?meaningful recovery. 10/26: Clinically unchanged, continue CPAP trial, Will discuss with Neurology about re-evaluation, ?Need for repeat CT head. ?PRESS considering initial elevated BP, now stable. 10/27; tracheostomy on vent, weaning trials, vital signs noted, poor prognosis 10/28; unable to wean, tracheostomy on vent. Sepsis. Continue current management. Consults and recommendations noted and appreciated 10/30/2020;Patient on T-piece 5 L of oxygen not in acute distress, noncommunicative 11/02/2020; patient on T-piece 5 L of oxygen 11/03/2020; patient's fever slightly improved low-grade, continue current management, remains on T-piece with 5 L of oxygen 11/04/2020; T-max last 24 hours 100.3 F, new cultures negative to date, monitor off antibiotics Patient is off Levophed, blood pressures reasonable level, tracheostomy on T-p iece 3 to 5 L nasal cannula oxygen 11/05/2020; tracheostomy on T-piece patient remains on 5 L of nasal cannula oxygen, unresponsive severe hypoxic brain injury I called patient's mother Ms. Pamela Bassett as well as patient's spouse Mr. Danilo Dimas at [phone] unable to reach them Left voicemail on Ms. Pamela Bassettz phone and encouraged him to call back 11/06/2020; I tried to call again today Ms. Pamela Bassett to discuss patient's condition and treatment plan and update consultants recommendations and patient's prognosis., unable to reach her 11/10/2020; family conference was held by case management yesterday 11/09/2020, family decided and agreed for SNF placement I will call patient's spouse and patient's mother to update on patient's condition today The high probability of a clinically significant, sudden or life threatening deterioration of the [MULTIPLE ORGAN] system(s) required my full and direct attention, intervention and personal management. The aggregate critical care time was [35] minutes. This time is in addition to time spent performing reported procedures but includes the following: [X] Data Review and interpretation [X] Patient assessment and monitoring of vital signs [X] Documentation [X] Medication orders and management History Interval history: I seen and examined the patient at the bedside in ICU this morning Patient's chart and medications reviewed Patient remains unresponsive, noncommunicative tracheostomy on 5 L of nasal cannula O2 Not in acute distress, mild agitation Vital signs reviewed Hospitalist Physical - Constitutional Vitals: Temp Pulse Resp BP Pulse Ox 98.3 F 92 H 20 117/64 99 11/10/20 12:00 11/10/20 15:00 11/10/20 15:00 11/10/20 15:00 11/10/20 15:00 General appearance: Present: no acute distress, well-nourished, obese, other (Patient is restless) - EENT Eyes: Absent: scleral icterus, conjunctival injection - Neck Neck: Present: supple, normal ROM - Respiratory Respiratory effort: normal Respiratory: bilateral: diminished, negative: rales, rhonchi, wheezing - Cardiovascular Rhythm: regular Heart Sounds: Present: S1 & S2 - Extremities Extremities: no ischemia, No edema - Abdominal General gastrointestinal: soft, non-tender, non-distended, normal bowel sounds, other (PEG tube in place) - Integumentary Integumentary: Present: clear, warm - Psychiatric Psychiatric: other (Noncommunicative on tracheostomy) - Neurologic Neurologic: moves all extremities, other (Noncommunicative tracheostomy) HEART Score - HEART Score Age: < 45 Risk factors: 1-2 risk factors - Critical Actions Critical Actions: >7 pts:50-65% risk of adverse cardiac event. Early invasive measures Results - Labs CBC & Chem 7: 11/07/20 04:44 11/07/20 04:44 Labs: Laboratory Last Values WBC 10.2 K/mm3 (4.5-11.0) 11/07/20 04:44 RBC 3.88 M/mm3 (3.65-5.03) 11/07/20 04:44 Hgb 11.0 gm/dl (10.1-14.3) 11/07/20 04:44 Hgb Comment See scanned result 10/04/20 Unknown Hct 32.6 % (30.3-42.9) 11/07/20 04:44 MCV 84 fl (79-97) 11/07/20 04:44 MCH 28 pg (28-32) 11/07/20 04:44 MCHC 34 % (30-34) 11/07/20 04:44 RDW 16.6 % (13.2-15.2) H 11/07/20 04:44 Plt Count 259 K/mm3 (140-440) 11/07/20 04:44 Lymph % (Auto) 15.2 % (13.4-35.0) 11/07/20 04:44 [place] % (Auto) 13.1 % (0.0-7.3) H 11/07/20 04:44 Eos % (Auto) 2.5 % (0.0-4.3) 11/07/20 04:44 Baso % (Auto) 0.6 % (0.0-1.8) 11/07/20 04:44 Lymph # (Auto) 1.6 K/mm3 (1.2-5.4) 11/07/20 04:44 [place] # (Auto) 1.3 K/mm3 (0.0-0.8) H 11/07/20 04:44 Eos # (Auto) 0.3 K/mm3 (0.0-0.4) 11/07/20 04:44 Baso # (Auto) 0.1 K/mm3 (0.0-0.1) 11/07/20 04:44 Add Manual Diff Complete 10/29/20 07:56 Total Counted 100 10/29/20 07:56 Seg Neutrophils % 68.6 % (40.0-70.0) 11/07/20 04:44 Seg Neuts % (Manual) 80.0 % (40.0-70.0) H 10/29/20 07:56 Band Neutrophils % 2.0 % 10/15/20 05:50 Lymphocytes % (Manual) 15.0 % (13.4-35.0) 10/29/20 07:56 Reactive Lymphs % (Man) 1.0 % 10/02/20 12:18 Monocytes % (Manual) 4.0 % (0.0-7.3) 10/29/20 07:56 Eosinophils % (Manual) 1.0 % (0.0-4.3) 10/29/20 07:56 Myelocytes % 2.0 % 10/02/20 13:05 Metamyelocytes % 1.0 % 10/14/20 04:00 Nucleated RBC % Not Reportable 10/29/20 07:56 Seg Neutrophils # 7.0 K/mm3 (1.8-7.7) 11/07/20 04:44 Seg Neutrophils # Man 10.9 K/mm3 (1.8-7.7) H 10/29/20 07:56 Band Neutrophils # 0.0 K/mm3 10/29/20 07:56 Lymphocytes # (Manual) 2.0 K/mm3 (1.2-5.4) 10/29/20 07:56 Abs React Lymphs (Man) 0.0 K/mm3 10/29/20 07:56 Monocytes # (Manual) 0.5 K/mm3 (0.0-0.8) 10/29/20 07:56 Eosinophils # (Manual) 0.1 K/mm3 (0.0-0.4) 10/29/20 07:56 Basophils # (Manual) 0.0 K/mm3 (0.0-0.1) 10/29/20 07:56 Metamyelocytes # 0.0 K/mm3 10/29/20 07:56 Myelocytes # 0.0 K/mm3 10/29/20 07:56 Promyelocytes # 0.0 K/mm3 10/29/20 07:56 Blast Cells # 0.0 K/mm3 10/29/20 07:56 WBC Morphology Not Reportable 10/29/20 07:56 Hypersegmented Neuts Not Reportable 10/29/20 07:56 Hyposegmented Neuts Not Reportable 10/29/20 07:56 Hypogranular Neuts Not Reportable 10/29/20 07:56 Smudge Cells Not Reportable 10/29/20 07:56 Toxic Granulation Not Reportable 10/29/20 07:56 Toxic Vacuolation Not Reportable 10/29/20 07:56 Dohle Bodies Not Reportable 10/29/20 07:56 Pelger-Huet Anomaly Not Reportable 10/29/20 07:56 Ester Rods Not Reportable 10/29/20 07:56 Platelet Estimate Consistent w auto 10/29/20 07:56 Clumped Platelets Not Reportable 10/29/20 07:56 Plt Clumps, EDTA Not Reportable 10/29/20 07:56 Large Platelets Few 10/29/20 07:56 Giant Platelets Not Reportable 10/29/20 07:56 Platelet Satelliting Not Reportable 10/29/20 07:56 Plt Morphology Comment Not Reportable 10/29/20 07:56 RBC Morphology Not Reportable 10/29/20 07:56 Dimorphic RBCs Not Reportable 10/29/20 07:56 Polychromasia Rare 10/29/20 07:56 Hypochromasia Few 10/29/20 07:56 Poikilocytosis Not Reportable 10/29/20 07:56 Anisocytosis Not Reportable 10/29/20 07:56 Microcytosis Not Reportable 10/29/20 07:56 Macrocytosis Not Reportable 10/29/20 07:56 Spherocytes Not Reportable 10/29/20 07:56 Pappenheimer Bodies Not Reportable 10/29/20 07:56 Sickle Cells Not Reportable 10/29/20 07:56 Target Cells Few 10/29/20 07:56 Tear Drop Cells Not Reportable 10/29/20 07:56 Ovalocytes Not Reportable 10/29/20 07:56 Stomatocytes Few 10/14/20 04:00 Helmet Cells Not Reportable 10/29/20 07:56 [place] Bodies Not Reportable 10/29/20 07:56 [place] Rings Not Reportable 10/29/20 07:56 [place] Cells Not Reportable 10/29/20 07:56 Bite Cells Not Reportable 10/29/20 07:56 Crenated Cell Not Reportable 10/29/20 07:56 Elliptocytes Not Reportable 10/29/20 07:56 Acanthocytes (Spur) Not Reportable 10/29/20 07:56 Rouleaux Not Reportable 10/29/20 07:56 Hemoglobin C Crystals Not Reportable 10/29/20 07:56 Schistocytes Not Reportable 10/29/20 07:56 Malaria parasites Not Reportable 10/29/20 07:56 Sickle Cell Solubility See scanned result 10/04/20 Unknown Hemoglobin A See scanned result 10/04/20 Unknown Hemoglobin A2 See scanned result 10/04/20 Unknown Hemoglobin A2 Prime See scanned result 10/04/20 Unknown Hemoglobin C See scanned result 10/04/20 Unknown Hemoglobin D See scanned result 10/04/20 Unknown Hemoglobin E See scanned result 10/04/20 Unknown Hgb F Diffential Stain See scanned result 10/04/20 Unknown Hemoglobin F Quant See scanned result 10/04/20 Unknown Hemoglobin G See scanned result 10/04/20 Unknown Hemoglobin S See scanned result 10/04/20 Unknown Hemoglobin [place] See scanned result 10/04/20 Unknown Hemoglobin [place] See scanned result 10/04/20 Unknown Hemoglobin Analilia See scanned result 10/04/20 Unknown Variant Hemoglobin See scanned result 10/04/20 Unknown Abnorm Hgb IEF Confirm See scanned result 10/04/20 Unknown Hemoglobin Interpret See scanned result 10/04/20 Unknown Hemoglobinopathy Note See scanned result 10/04/20 Unknown Sharad Bodies Not Reportable 10/29/20 07:56 Hem Pathologist Commnt No 10/29/20 07:56 PT 13.6 Sec. (12.2-14.9) 10/21/20 13:54 INR 1.06 (0.87-1.13) 10/21/20 13:54 APTT 31.6 Sec. (24.2-36.6) 10/03/20 00:40 Fibrinogen 336 mg/dl (211-480) 10/04/20 10:00 D-Dimer > 87473 ng/mlDDU (0-234) H 10/04/20 10:00 ABG pH 7.459 pH Units (7.350-7.450) H 10/26/20 10:30 POC ABG pCO2 20.7 mmHg (32.0-48.0) L 10/13/20 07:18 ABG pCO2 32.4 mm Hg 10/26/20 10:30 POC ABG pO2 137.9 mmHg (83-108) H 10/13/20 07:18 ABG pO2 112.2 mm Hg (80.0-90.0) H 10/26/20 10:30 POC ABG HCO3 14.8 10/13/20 07:18 ABG HCO3 22.5 mmol/L (20.0-26.0) 10/26/20 10:30 ABG O2 Saturation 98.2 % (95.0-99.0) 10/26/20 10:30 ABG O2 Content 18.5 (0.0-44) 10/26/20 10:30 POC ABG Base Excess -6.9 10/13/20 07:18 ABG Base Excess -0.6 mmol/L (-2.0-3.0) 10/26/20 10:30 ABG Hemoglobin 13.5 gm/dl (12.0-16.0) 10/26/20 10:30 ABG Oxyhemoglobin 98.3 (94-98) H 10/13/20 07:18 ABG Carboxyhemoglobin 1.3 % (0.0-5.0) 10/26/20 10:30 ABG Methemoglobin 0.5 % (0.0-1.5) 10/26/20 10:30 ABG Sodium 135.9 mmol/L (136.0-145.0) L 10/13/20 07:18 ABG Potassium 3.7 mmol/L (3.40-4.50) 10/13/20 07:18 ABG Chloride 111.0 mmol/L (98-107) H 10/13/20 07:18 ABG Glucose 109 mg/dL (65-95) H 10/13/20 07:18 VBG pH 6.949 (7.320-7.420) L* 10/02/20 Unknown Oxyhemoglobin 96.5 % (95.0-99.0) 10/26/20 10:30 Carboxyhemoglobin 0.3 (0.5-1.5) L 10/13/20 07:18 FiO2 25 % 10/26/20 10:30 Sodium 138 mmol/L (137-145) 11/07/20 04:44 Potassium 4.4 mmol/L (3.6-5.0) 11/07/20 04:44 Chloride 100.8 mmol/L (98-107) 11/07/20 04:44 Carbon Dioxide 23 mmol/L (22-30) 11/07/20 04:44 Anion Gap 19 mmol/L 11/07/20 04:44 BUN 12 mg/dL (7-17) 11/07/20 04:44 Creatinine 0.6 mg/dL (0.6-1.2) 11/07/20 04:44 Estimated GFR > 60 ml/min 11/07/20 04:44 BUN/Creatinine Ratio 20 % 11/07/20 04:44 Glucose 103 mg/dL (65-100) H 11/07/20 04:44 POC Glucose 103 mg/dL (70-105) 11/10/20 08:18 Random Insulin 43.2 uIU/mL (<=19.6) H 11/02/20 19:19 C-Peptide 6.23 ng/mL (0.80-3.85) H 11/02/20 19:19 Lactic Acid 1.90 mmol/L (0.7-2.0) 10/04/20 22:00 Uric Acid 7.5 mg/dL (3.5-7.6) 10/02/20 13:05 Calcium 9.2 mg/dL (8.4-10.2) 11/07/20 04:44 Ionized Calcium 4.4 mg/dL (4.8-5.6) L 10/07/20 21:00 Phosphorus 5.30 mg/dL (2.5-4.5) H 11/07/20 04:44 Magnesium 2.00 mg/dL (1.7-2.3) 11/07/20 04:44 Total Bilirubin 0.50 mg/dL (0.1-1.2) 11/04/20 05:00 AST 90 units/L (5-40) H 11/04/20 05:00 ALT 36 units/L (7-56) 11/04/20 05:00 Alkaline Phosphatase 122 units/L (35-129) 11/04/20 05:00 Lactate Dehydrogenase 769 units/L (91-180) H 10/02/20 13:05 NT-Pro-B Natriuret Pep 2788 pg/mL (0-450) H 10/04/20 10:00 Total Protein 7.4 g/dL (6.3-8.2) 11/04/20 05:00 Albumin 3.8 g/dL (3.9-5) L 11/04/20 05:00 Albumin/Globulin Ratio 1.1 % 11/04/20 05:00 Procalcitonin 0.06 ng/mL (<0.15) 10/27/20 07:53 Arterial Blood Glucose 109 mg/dL (65-95) H 10/13/20 07:18 Arterial Blood Ionized Calcium 4.6 mg/dL (4.6-5.3) 10/13/20 07:18 Urine Color Yellow (Yellow) 10/11/20 13:26 Urine Turbidity Clear (Clear) 10/11/20 13:26 Urine pH 7.0 (5.0-7.0) 10/11/20 13:26 Ur Specific [place] 1.014 (1.003-1.030) 10/11/20 13:26 Urine Protein 100 mg/dl mg/dL (Negative) 10/11/20 13:26 Urine Glucose (UA) Neg mg/dL (Negative) 10/11/20 13:26 Urine Ketones Neg mg/dL (Negative) 10/11/20 13:26 Urine Blood Mod (Negative) 10/11/20 13:26 Urine Nitrite Neg (Negative) 10/11/20 13:26 Urine Bilirubin Neg (Negative) 10/11/20 13:26 Urine Urobilinogen < 2.0 mg/dL (<2.0) 10/11/20 13:26 Ur Leukocyte Esterase Sm (Negative) 10/11/20 13:26 Urine WBC (Auto) 24.0 /HPF (0.0-6.0) H 10/11/20 13:26 Urine RBC (Auto) 59.0 /HPF (0.0-6.0) 10/11/20 13:26 Urine Bacteria (Auto) 1+ /HPF (Negative) 10/11/20 13:26 Urine Mucus Few /HPF 10/11/20 13:26 Vancomycin Trough 12.6 ug/mL (5.0-20.0) 10/21/20 13:54 Random Vancomycin 10.7 ug/mL (0-40.0) 10/16/20 13:09 Phenytoin 5.7 ug/mL (10.0-20.0) L 10/13/20 07:00 C. difficile Tox (PCR) Positive (Negative) 10/16/20 10:22 Coronavirus (PCR) Negative (Negative) 10/08/20 14:15 Blood Type O POSITIVE 10/02/20 12:50 Antibody Screen Negative 10/02/20 12:50 Crossmatch See Detail 10/02/20 12:50 Microbiology: Microbiology 11/06/20 13:23 Peripheral/Venous Blood Culture - Preliminary NO GROWTH AFTER 4 DAYS 11/06/20 13:23 Peripheral/Venous Blood Culture - Preliminary NO GROWTH AFTER 4 DAYS - Diagnostic Impressions Diagnostic Impressions: Echocardiogram 10/03/20 13:42 Transthoracic Echocardiogram Indication: S/P Cardiac Arrest R/O Cardiomyopathy BP: 133/71 Conclusions *Global left ventricular systolic function is normal. *The estimated ejection fraction is 60-65%. *There is trace of mitral regurgitation. *The right 0heart chambers are both slightly dilated. *There is mild tricuspid regurgitation. *There is mild-moderate pulmonary hypertension. *The right ventricular systolic pressure is calculated at 44 mmHg. *The study quality is technically difficult. Findings Procedure Info: The study quality is technically difficult. The study is technically limited due to patient body habitus. The study was technically limited due to the patient's inability to lay in the left lateral decubitus position. Left Ventricle: The left ventricular chamber size is normal. There is no left ventricular hypertrophy. Global left ventricular systolic function is normal. The estimated ejection fraction is 60-65%. Left Atrium: The left atrial chamber size is normal. Right Ventricle: The right ventricle is slightly dilated. Right Atrium: The right atrium is mildly dilated. Aortic Valve: The aortic valve leaflets are mildly thickened. There is no evidence of aortic regurgitation. There is no evidence of aortic stenosis. Mitral Valve: The mitral valve leaflets are mildly thickened. There is trace of mitral regurgitation. There is no evidence of mitral stenosis. Tricuspid Valve: There is mild tricuspid regurgitation. The right ventricular systolic pressure is calculated at 44 mmHg. There is evidence of mild pulmonary hypertension. Pulmonic Valve: There is trace pulmonic regurgitation. Pericardium: There is no pericardial effusion. Aorta: There is no dilatation of the ascending aorta. There is no dilatation of the aortic root. Venous: The inferior vena cava is dilated. Measurements Chambers 2D Name Value Normal Range IVSd (2D) 1 cm (0.6 - 1.1) LVPWd (2D) 1.01 cm (0.6 - 1.1) LVIDd (2D) 4.58 cm (3.7 - 5.6) LVIDs (2D) 3.17 cm (2 - 3.8) LV FS (2D) 30.93 % - EF Teichholz (2D) 58.66 % - Ao root diameter (2D) 2.94 cm (2 - 3.7) Volumes/Mass Name Value Normal Range LA ESV SP 4CH (A/L) 72.82 ml - LA ESV SP 2CH (A/L) 66.86 ml - LA ESV BP (A/L) 74.49 ml - LA ESV SP 4CH (MOD) 71.03 ml - LA ESV SP 2CH (MOD) 64.3 ml - LV EDV SP 4CH (MOD) 98.82 ml - LV ESV SP 4CH (MOD) 24.8 ml - EF SP 4CH (MOD) 74.9 % - LV EDV SP 2CH (MOD) 86.1 ml - LV ESV SP 2CH (MOD) 36.93 ml - EF SP 2CH (MOD) 57.11 % - LV EDV BP 94.4 ml - LV ESV BP 32.66 ml - BP EF (MOD) 65.4 % - Diastolic/Systolic Function Name Value Normal Range MV E-wave Vmax 1.04 m/sec - MV deceleration time 160.46 msec - MV A-wave Vmax 0.92 m/sec - MV E:A ratio 1.14 ratio - Aortic Valve Name Value Normal Range AV Vmax 2.12 m/sec - AV VTI 22.37 cm - AV peak gradient 17.95 mmHg - AV mean gradient 7.29 mmHg - LVOT diameter 2.01 cm - LVOT Vmax 1.8 m/sec - LVOT VTI 27.17 cm - LVOT peak gradient 12.91 mmHg - LVOT mean gradient 6.83 mmHg - SV LVOT 86.42 ml - ANITA (continuity Vmax) 2.7 cm2 - ANITA (continuity VTI) 3.86 cm2 - Ascending Ao 3.18 cm - Tricuspid Valve Name Value Normal Range TV E-wave Vmax 0.88 m/sec - TR Vmax 3.01 m/sec - TR peak gradient 36.27 mmHg - RAP 8 mmHg - RVSP 44 mmHg - IVC diameter 2.65 cm (1.2 - 2.3) Pulmonic Valve/Qp:Qs Name Value Normal Range PV Vmax 1.22 m/sec - PV peak gradient 5.91 mmHg - RVOT Vmax 0.87 m/sec - RVOT VTI 13.32 cm - RVOT peak gradient 3 mmHg - PV acceleration time 110.37 msec - [place]/IV: Voiding Method Indwelling Catheter IV Catheter Type [Right Foot] INT / Saline Lock IV Catheter Type [Left Forearm Peripheral IV ] IV Catheter Type [Left Wrist] INT / Saline Lock IV Catheter Type [Right Hand] INT / Saline Lock IV Catheter Type [Right INT / Saline Lock Antecubital] IV Catheter Type [Right Upper Mid-line arm] IV Catheter Type [Left Triple Lumen Cath Internal Jugular] IV Catheter Type [Left Hand] Peripheral IV IV Catheter Type [Left Peripheral IV Antecubital] Active Medications - Current Medications Current Medications: Generic Name Dose Route Start Last Admin Trade Name Freq PRN Reason Stop Dose Admin Acetaminophen 650 mg 10/05/20 16:34 11/10/20 05:59 Acetaminophen 325 Mg/10.15 Ml Oral Liqd Unit Dose FEEDTUBE 650 mg Q6H PRN Administration Non Cardiac Pain or Temp>100.5 Albuterol 2.5 mg 11/05/20 13:03 11/06/20 13:04 Albuterol 2.5 Mg/3 Ml Nebu IH 2.5 mg Q4HRT PRN Administration Shortness Of Breath Lipase/Protease/Amylase 1 each 10/05/20 11:09 Lipase 10,500/Protease 25,000/Amylase 43,750 (Units) Dr Barakat FEEDTUBE PRN PRN For Clogged Feeding Tube Enoxaparin Sodium 40 mg 10/22/20 10:00 11/10/20 09:30 Enoxaparin 40 Mg/0.4 Ml Inj SUB-Q 40 mg DAILY ERINN Administration Protocol Famotidine 20 mg 10/07/20 10:00 11/10/20 09:29 Famotidine 20 Mg Tab PO 20 mg BID ERINN Administration Furosemide 40 mg 10/17/20 10:00 11/10/20 09:28 Furosemide 40 Mg Tab PO 40 mg QDAY ERINN Administration Hydralazine HCl 20 mg 10/07/20 11:49 10/17/20 07:20 Hydralazine 20 Mg/1 Ml Inj IV 20 mg Q6H PRN Administration SBP >170 Hydralazine HCl 50 mg 10/17/20 09:00 11/10/20 13:00 Hydralazine 25 Mg Tab PO 50 mg Q8HR ERINN Administration Dextrose 1,000 mls @ 75 mls/hr 10/13/20 11:00 11/10/20 05:57 D10w IV 75 mls/hr DIRECT ERINN Administration Labetalol HCl 300 mg 10/17/20 09:00 11/10/20 13:00 Labetalol 100 Mg Tab PO 300 mg TID ERINN Administration Simple Syrup 15 ml 10/05/20 11:09 Simple Syrup 15 Ml FEEDTUBE PRN PRN Hypoglycemia Simple Syrup 30 ml 10/05/20 11:09 Simple Syrup 15 Ml FEEDTUBE PRN PRN Hypoglycemia Sodium Bicarbonate 325 mg 10/05/20 11:09 11/06/20 10:35 Sodium Bicarbonate 325 Mg Tab FEEDTUBE 325 mg PRN PRN Administration For Clogged Feeding Tube Sodium Bicarbonate 1,300 mg 10/13/20 14:00 11/10/20 13:00 Sodium Bicarbonate 650 Mg Tab PO 1,300 mg TID ERINN Administration Topiramate 50 mg 10/05/20 11:00 11/10/20 09:29 Topiramate Tab 25 Mg Tab PO 50 mg Q12HR ERINN Administration Valacyclovir HCl 1,000 mg 11/09/20 12:00 11/10/20 09:29 Valacyclovir 500 Mg Tab PO 11/13/20 22:01 1,000 mg Q12HR ERINN Administration Nutrition/Malnutrition Assess - Dietary Evaluation Nutrition/Malnutrition Findings: Nutrition Notes Start: 10/04/20 11:13 Freq: Status: Active Protocol: Document 11/10/20 11:16 CW (Rec: 11/10/20 11:23 CW [id number]) Co-Sign 11/10/20 11:16 LP Nutrition Notes Initial or Follow up Reassessment Current Diagnosis Acute Kidney Injury, Respiratory Failure Other Pertinent Diagnosis C-Diff, Cardiac arrest, s/p c- sectuion and supracervial hysterectomy Current Diet Jevity 1.2 at 60 ml/hr Labs/Tests reviewed Pertinent Medications lasix D10w at 75ml/hr Height 5 ft 8 in Weight 105.3 kg [place] Body Weight (kg) 63.63 BMI 35.3 Weight change and time frame Wt change noted, pt on lasix Weight Status Morbidly Obese Subjective/Other Information FU for TF tolerance, POC. Pt remains on T-piece with TF running at goal and D10w infusing. Per chart, discussed POC with family and pending SNF placement. Per RN, pt tolerating TF. Percent of energy/protein needs met: 100%/100% Burn Absent Trauma Absent GI Symptoms None Food Allergy Yes Current % PO Negligible Minimum of two criteria No Fluid Accumulation Mild (non-severe) #1 Nutrition Diagnosis Inadequate oral intake Diagnosis Progress(for reassessment Continues documentation) Is patient on ventilator? No Is Patient Ambulatory and/or Out of Bed No REE-([facility]-confined to bed) [phone] Kcal/Kg value to use for calculation 16 Approximate Energy Requirements Using 1685 kcal/Kg Calculation Used for Recommendations Kcal/kg Additional Notes Protein needs are 68-85g (0.8- 1g/kg AdjBW 85kg) Fluid needs are 1ml/kcal Nutrition Intervention Change Diet Order: Continue Nutrition Support: Jevity 1.2 at 60ml/hr. Flush 100ml q4h. Kcal 1,782 Protein (gm) 87 Fluid (mL) 1,259 Goal #1 TF tolerance Goal #2 Meet at least 75% of energy and protein needs Anticipated Discharge Needs: Unable to determine at this time Follow-Up By: 11/17/20 Additional Comments FU for TF tolerance, POC
[2020-11-11] MEDS: hydrALAZINE 25 MG TAB PO SCH ×3 (06:05→22:11)
[2020-11-11] MEDS: SODIUM BICARBONATE 650 MG TAB PO SCH ×3 (08:49→19:24)
[2020-11-11] MEDS: DEXTROSE 10% IN WATER 1,000 ML IV SCH ×2 (08:58→19:25)
[2020-11-11] MEDS: ENOXAPARIN 40 MG/0.4 ML INJ SUB-Q SCH (09:01)
[2020-11-11] MEDS: FAMOTIDINE 20 MG TAB PO SCH ×2 (09:01→22:11)
[2020-11-11] MEDS: FUROSEMIDE 40 MG TAB PO SCH (09:01)
[2020-11-11] MEDS: valACYclovir 500 MG TAB PO SCH ×2 (09:01→22:11)
[2020-11-11] MEDS: TOPIRAMATE TAB 25 MG TAB PO SCH ×2 (09:02→22:12)
--- NOTE | 2020-11-11 12:24 | Progress Note ---
Assessment and Plan Cultures: 10/05/2020 Blood culture: no growth 10/11/2020 blood culture: No growth 10/11/2020 tracheal aspirate: Usual respiratory jaylan 10/14/2020 blood culture: Enterobacter, coag negative staph. Sensitivities in "scanned reports" 10/15/2020 blood culture: negative 11/02/2020 blood cultures no growth 11/06/2020 blood culture no growth today A/P: 30-year-old female with GERD, hypertension, seizure disorder was admitted to the hospital at 36 weeks with seizures. She became hypoxic and pulseless requiring CPR. Following emergent section, patient developed hemorrhage, DIC. She has been admitted to ICU, remains on the vent: #Intermittent fever: Initially due to Enterobacter bacteremia. Persistent fever of unclear etiology. #Extensive herpes genitalis: Perianal and vaginal #Recent Enterobacter bacteremia: Treated #Status post arrest 10/07/2020: Apparently had a brief code due to ?ET tube clot/plugging. #Initial shock, DIC/persistent fever: Secondary to hemorrhage, ?possible sepsis. Possible pneumonia versus fluid overload. ?Central fever v/s from VTE. Noted diarrhea ? Cdiff + #Acute kidney injury: resolved #Acute respiratory failure: remains on the vent. now has trach #Transaminitis: ?HELLP. #Preeclampsia # hemorrhage: Status post , status post supracervical hysterectomy. #Encephalopathy post cardiac arrest #C. difficile: Completed PO vancomycin #Right axillary acute DVT Recs: -Continue p.o. Valtrex 1 g twice daily total 7 days -check ddimer/leg US r/o DVT -check UA -remove chowdhury as possible - discussed w nursing staff -monitor fever Monitor fever Violette Dejesus MD [facility] ([facility]) Office [phone] Subjective Date of service: 11/11/20 Principal diagnosis: Eclampsia/HELLP Syndrome, ADOLPH, DIC; s/p , s/p supracervical hyst Interval history: noted 100.1 temp. Remains unresponsive on T-piece. Objective - Exam Narrative Exam: General appearance: Unresponsive Eyes: anicteric sclerae, moist conjunctivae; no lid-lag; PERRLA HENT: Normocephalic, Atraumatic; normal external ears, nares open, oropharynx limited rectal tube in place Neck: supple, tracheal midline, no JVD Lungs: Coarse breath sounds bilaterally CV: RRR no murmur Abdomen: Soft, wound with dressing Extremities: no edema, no cyanosis Skin: Extensive clusters of blisters perianal, vaginal area improving Psych: Unresponsive Neuro: Unresponsive - Constitutional Vitals: Vital Signs Temp Pulse Resp BP Pulse Ox 99.2 F 89 20 139/61 100 11/11/20 12:00 11/11/20 11:01 11/11/20 11:01 11/11/20 11:01 11/11/20 11:01 Temperature -Last 24 Hours Temperature 99.2 F Temperature 98.9 F Temperature 98.3 F Temperature 100.1 F Temperature 99.6 F Temperature 98.7 F - Labs CBC & Chem 7: 11/07/20 04:44 11/07/20 04:44 Labs: Abnormal lab results 11/10/20 11/11/20 Range/Units 20:36 04:58 POC Glucose 111 H 109 H (70-105) mg/dL
--- NOTE | 2020-11-11 13:52 | Progress Note ---
Assessment and Plan 30 y/o female with Eclampsia, s/p emergent section with DIC, acute respiratory failure and worsening renal function. 11/11/20: Call labs today about proinuslin. Signed letter for family today. Needs endocrine consult but not available here. 11/10/20: If proinsulin not back by tomorrow will call lab. Once I have all info, will see if I can obtain and endocrine consult via phone to discuss case. Continue supplemental oxygen. Needs PT 11/09/20: Follow up Proinsulin levels. No endocrine consult available here, but will do more research to see if we can find out why she remains D10 dependent. Pulm status is stable. Continue T-piece. Not a candidate for floor given D10 requirement. 11/06/20: No new recs. Will continue to check for outside lab results over the weekend. 11/05/20: Awaiting outside labs to work up hypoglycemia. Will add some PRN albuterol nebs to see if this will help to thin out her secretions. 11/04/20: No changes. No new recs. Awaiting send out labs to help figure out hypoglycemia. 11/03/20: Continue D10. Await send out labs. 11/02/20: Called lab today to ask how to order these send out labs. Continue D10 along with feeds for now. Stopped robinol and no further reports of increased thickness of secretions. given D10 requirement, do not feel comfortable with transition to the floor. 11/01/20: Will stop Robinol as this may be making secretions to thick. Huge risk for mucous plugging given mental state. Continue D10 and waiting on labs from yesterday. LFT's repeated and AST elevated along with alk phos. Both of these were elevated on admission, then resolved and now are elevated again. In current clinical state, not sure what to make of those numbers. They do not help with trying to figure out hypoglycemia and persistent need for D10. Continue IMCU care. 10/31/20: Will order midline for IV team vs peripheral IV's (multiple). Needs access for d10 as we have not been able to figure out why she is so hypoglyemic. Will measure serum insulin levels and C-peptide levels, as well proinsulin. All of these labs are sendouts so will have to call down to ask how to order as they are not coming up in [facility]. Given her requirement for supplemental IV sugar, not a candidate for floor transfer. 10/30/20: Continue step down monitoring for now. If does well the next 24-36 hours, then will consider floor transfer. Really needs to continue PT with PROM. Will speak with CM about options for here now that critical needs are becoming minimal. 10/29/20: Off vent now for 24 hours. Tolerating T-Piece. Will transition to step down for a few days. If does well there, consider transition to floor. Continue PT. Guarded prognosis. 10/28/20: Daily T-piece trials for as long as tolerated. Attempt to push further daily. OT does not do passive range of motion. Per PT note will do passive range of motion with patient. Guarded prognosis. Hoping to wean off vent and transition to floor. 10/27/20: Continue daily T-piece trials for as long as tolerated. Ok with resting on either PSV or full rate if needed at night but need to strengthen her respiratory muscles. PT/OT if possible. Will transition to step down prior to going to floor to insure stability. 10/26/20: Will obtain ABG today. If good, will attempt on T-piece later. Continue PT/OT. Will speak with CM about possibility of LTACH or nursing facility that can take trached patients. 10/23/20: Daily PSV trials for as long as patient will tolerate. Needs PT/OT consult for passive range of motion. 10/22/20: Will start prolonged PSV trials. Attempt to wean from vent and then transition to floor to see if mental status improves. Continue tube feeds. 10/21/20: Trach and peg placed. No sedation. Restart Lovenox for Upper Ext DVT. Restart feeds when surgery states ok to use PEG. C. Diff treatment per ID. Guarded prognosis. Will be a prison wean. Hopeful to wean off vent at least and then can transfer to floor. 10/20/20: NPO after midnight. DVT study just read from 10/14 on yesterday showing upper ext DVT. Started on Lovenox but need to hold therapy until after surgery. could be source of fevers. No sedation. 10/19/20: Stable BP. Will meet/talk with family at noon over the phone with myself and case management. Need to discuss goals of care and what next steps would be. Patient would need trach and peg and transfer to LTACH if family ok with this. Follow up speciation of GNR's in blood. Has been on Cefepime. Continues therapy for C. Diff. Guarded prognosis. Continue daily PSV trials but not ready for extubation secondary to mental state. 10/18/20: Blood pressure is much better with the addition of meds started on yesterday. Need to have family meeting jesica in regards to goals of care. Continue Daily PSV trials but not ready for extubation. Continue therapy for C. Diff per ID. 10/17/20: CT scan was of no help in regards to fevers. C. Diff is positive and BP now is more uncontrolled despite increasing labetalol. Today will increase to 300 TID. Added TID Hydralazine and added PO lasix given her mild pulmonary htn seen on echo. Spoke with mother over the phone and she requests to come see the patient. Given current circumstances, will allow her to come briefly today and then will speak with her at the bedside. No neurology is available at the time and suspect these will be the majority of her questions. Tolerated PSV b riefly yesterday and will do again today but not for extended periods as given her mental state she is not a candidate for extubation. I will also ask the mother about prison care (trach and peg) when she comes today. Overall prognosis is guarded to poor. If oral meds cannot regulate blood pressure, may need Cardene drip. Continue therapy for C. Diff per ID. Subjective Date of service: 11/11/20 Principal diagnosis: Eclampsia/HELLP Syndrome, ADOLPH, DIC; s/p , s/p supracervical hyst Interval history: No acute events. Still hypoglycemic. Pro-insulin level is not back yet. Objective Vital Signs - 12hr 11/11/20 11/11/20 11/11/20 02:00 02:31 03:00 Temperature Pulse Rate 102 H 107 H 109 H Respiratory 21 10 L 17 Rate Blood Pressure 167/82 153/72 158/66 O2 Sat by Pulse 100 100 100 Oximetry O2 Sat by Pulse Oximetry [ Assessment] 11/11/20 11/11/20 11/11/20 03:30 03:37 04:00 Temperature 98.3 F Pulse Rate 95 H 94 H Respiratory 22 23 Rate Blood Pressure 143/73 137/61 O2 Sat by Pulse 100 100 Oximetry O2 Sat by Pulse Oximetry [ Assessment] 11/11/20 11/11/20 11/11/20 04:30 05:01 05:31 Temperature Pulse Rate 89 101 H 86 Respiratory 20 24 20 Rate Blood Pressure 144/61 139/52 145/70 O2 Sat by Pulse 100 98 100 Oximetry O2 Sat by Pulse Oximetry [ Assessment] 11/11/20 11/11/20 11/11/20 06:01 06:05 06:31 Temperature Pulse Rate 107 H 108 H 111 H Respiratory 14 19 Rate Blood Pressure 165/69 165/69 152/66 O2 Sat by Pulse 98 99 Oximetry O2 Sat by Pulse Oximetry [ Assessment] 11/11/20 11/11/20 11/11/20 07:01 07:31 08:00 Temperature 98.9 F Pulse Rate 108 H 101 H 101 H Respiratory 19 13 26 H Rate Blood Pressure 159/60 155/59 147/57 O2 Sat by Pulse 99 100 99 Oximetry O2 Sat by Pulse Oximetry [ Assessment] 11/11/20 11/11/20 11/11/20 08:30 08:32 08:49 Temperature Pulse Rate 106 H 110 H Respiratory 33 H Rate Blood Pressure 136/83 136/83 O2 Sat by Pulse 99 Oximetry O2 Sat by Pulse 99 Oximetry [ Assessment] 11/11/20 11/11/20 11/11/20 09:00 09:31 10:00 Temperature Pulse Rate 98 H 84 82 Respiratory 18 17 14 Rate Blood Pressure 160/70 133/60 125/59 O2 Sat by Pulse 100 100 100 Oximetry O2 Sat by Pulse Oximetry [ Assessment] 11/11/20 11/11/20 11/11/20 10:30 11:01 12:00 Temperature 99.2 F Pulse Rate 85 89 Respiratory 19 20 Rate Blood Pressure 125/65 139/61 O2 Sat by Pulse 100 100 Oximetry O2 Sat by Pulse Oximetry [ Assessment] 11/11/20 13:43 Temperature Pulse Rate 96 H Respiratory Rate Blood Pressure 139/76 O2 Sat by Pulse Oximetry O2 Sat by Pulse Oximetry [ Assessment] Constitutional: comatose, other (s/p trach) Eyes: non-icteric ENT: oropharynx moist Neck: other (large in cirumference) Effort: normal Ascultation: Bilateral: clear, diminished breath sounds, rhonchi, other (coarse BS bilaterally) Percussion: Bilateral: not dull Cardiovascular: regular rate and rhythm, other (no mrg) Gastrointestinal: normoactive bowel sounds, soft Extremities: no cyanosis, pink and warm Neurologic: other (unresponsive, not following commands, not tracking) Psychiatric: other (unable to assess) CBC and BMP: 11/07/20 04:44 11/07/20 04:44 ABG, PT/INR, D-dimer: ABG ABG pH 7.459 pH Units (7.350-7.450) H 10/26/20 10:30 POC ABG pCO2 20.7 mmHg (32.0-48.0) L 10/13/20 07:18 ABG pCO2 32.4 mm Hg 10/26/20 10:30 POC ABG pO2 137.9 mmHg (83-108) H 10/13/20 07:18 ABG pO2 112.2 mm Hg (80.0-90.0) H 10/26/20 10:30 POC ABG HCO3 14.8 10/13/20 07:18 ABG O2 Saturation 98.2 % (95.0-99.0) 10/26/20 10:30 PT/INR, D-dimer PT 13.6 Sec. (12.2-14.9) 10/21/20 13:54 INR 1.06 (0.87-1.13) 10/21/20 13:54 D-Dimer > 80972 ng/mlDDU (0-234) H 10/04/20 10:00 Abnormal lab findings: Abnormal Labs 10/02/20 10/02/20 10/02/20 12:03 12:18 12:18 WBC 14.9 H RBC Hgb 9.1 L Hct MCV MCH 22 L MCHC 28 L RDW 17.6 H Plt Count 102 L Lymph % (Auto) Marion % (Auto) Lymph # (Auto) Marion # (Auto) Baso # (Auto) Seg Neutrophils % Seg Neuts % (Manual) 36.0 L Lymphocytes % (Manual) 49.0 H Monocytes % (Manual) Nucleated RBC % 6.0 H Seg Neutrophils # Seg Neutrophils # Man Lymphocytes # (Manual) 7.3 H Monocytes # (Manual) PT INR APTT Fibrinogen D-Dimer ABG pH POC ABG pCO2 POC ABG pO2 ABG pO2 ABG HCO3 ABG Base Excess ABG Hemoglobin ABG Oxyhemoglobin ABG Sodium ABG Potassium ABG Chloride ABG Glucose VBG pH Oxyhemoglobin Carboxyhemoglobin Sodium 134 L Potassium Chloride Carbon Dioxide 12 L BUN 6 L Creatinine Glucose 390 H POC Glucose 451 H Random Insulin C-Peptide Lactic Acid Calcium Ionized Calcium Phosphorus Magnesium AST 135 H ALT 85 H Alkaline Phosphatase 172 H Lactate Dehydrogenase 641 H NT-Pro-B Natriuret Pep Total Protein 5.4 L Albumin 2.3 L Arterial Blood Glucose Arterial Blood Ionized Calcium Urine WBC (Auto) Vancomycin Trough Phenytoin Crossmatch 10/02/20 10/02/20 10/02/20 12:50 13:05 13:05 WBC 38.6 H RBC Hgb 8.9 L Hct 29.0 L MCV 73 L MCH 22 L MCHC RDW 17.2 H Plt Count Lymph % (Auto) Marion % (Auto) Lymph # (Auto) Marion # (Auto) Baso # (Auto) Seg Neutrophils % Seg Neuts % (Manual) Lymphocytes % (Manual) Monocytes % (Manual) Nucleated RBC % 2.0 H Seg Neutrophils # Seg Neutrophils # Man 20.1 H Lymphocytes # (Manual) 10.4 H Monocytes # (Manual) 2.3 H PT INR APTT Fibrinogen D-Dimer ABG pH POC ABG pCO2 POC ABG pO2 ABG pO2 ABG HCO3 ABG Base Excess ABG Hemoglobin ABG Oxyhemoglobin ABG Sodium ABG Potassium ABG Chloride ABG Glucose VBG pH Oxyhemoglobin Carboxyhemoglobin Sodium Potassium Chloride Carbon Dioxide BUN Creatinine Glucose POC Glucose Random Insulin C-Peptide Lactic Acid Calcium Ionized Calcium Phosphorus Magnesium AST 184 H ALT 113 H Alkaline Phosphatase Lactate Dehydrogenase 769 H NT-Pro-B Natriuret Pep Total Protein Albumin Arterial Blood Glucose Arterial Blood Ionized Calcium Urine WBC (Auto) Vancomycin Trough Phenytoin Crossmatch See Detail 10/02/20 10/02/20 10/02/20 16:25 16:35 16:35 WBC RBC Hgb Hct MCV MCH MCHC RDW Plt Count Lymph % (Auto) Marion % (Auto) Lymph # (Auto) Marion # (Auto) Baso # (Auto) Seg Neutrophils % Seg Neuts % (Manual) Lymphocytes % (Manual) Monocytes % (Manual) Nucleated RBC % Seg Neutrophils # Seg Neutrophils # Man Lymphocytes # (Manual) Monocytes # (Manual) PT INR APTT Fibrinogen D-Dimer ABG pH 7.031 L* POC ABG pCO2 POC ABG pO2 ABG pO2 116.8 H ABG HCO3 12.7 L ABG Base Excess -16.9 L ABG Hemoglobin 7.8 L ABG Oxyhemoglobin ABG Sodium ABG Potassium ABG Chloride ABG Glucose VBG pH Oxyhemoglobin 94.9 L Carboxyhemoglobin Sodium Potassium Chloride Carbon Dioxide BUN Creatinine Glucose 403 H POC Glucose Random Insulin C-Peptide Lactic Acid 11.40 H* Calcium 6.3 L D Ionized Calcium Phosphorus Magnesium AST 70 H ALT Alkaline Phosphatase Lactate Dehydrogenase NT-Pro-B Natriuret Pep Total Protein 1.9 L D Albumin 1.2 L Arterial Blood Glucose Arterial Blood Ionized Calcium Urine WBC (Auto) Vancomycin Trough Phenytoin Crossmatch 10/02/20 10/02/20 10/02/20 18:18 18:18 22:30 WBC 11.5 H RBC 2.06 L Hgb 5.5 L* D Hct 17.3 L* D MCV MCH 27 L MCHC RDW 19.5 H Plt Count 60 L Lymph % (Auto) Marion % (Auto) Lymph # (Auto) [place] # (Auto) Baso # (Auto) Seg Neutrophils % Seg Neuts % (Manual) Lymphocytes % (Manual) 8.0 L Monocytes % (Manual) 8.0 H Nucleated RBC % 8.0 H Seg Neutrophils # Seg Neutrophils # Man Lymphocytes # (Manual) 0.9 L Monocytes # (Manual) 0.9 H PT 37.1 H INR 3.71 H APTT 135.8 H* Fibrinogen D-Dimer ABG pH 7.067 L* POC ABG pCO2 POC ABG pO2 ABG pO2 183.0 H ABG HCO3 14.1 L ABG Base Excess -15.1 L ABG Hemoglobin 7.7 L ABG Oxyhemoglobin ABG Sodium ABG Potassium ABG Chloride ABG Glucose VBG pH Oxyhemoglobin Carboxyhemoglobin Sodium Potassium Chloride Carbon Dioxide BUN Creatinine Glucose POC Glucose Random Insulin C-Peptide Lactic Acid Calcium Ionized Calcium Phosphorus Magnesium AST ALT Alkaline Phosphatase Lactate Dehydrogenase NT-Pro-B Natriuret Pep Total Protein Albumin Arterial Blood Glucose Arterial Blood Ionized Calcium Urine WBC (Auto) Vancomycin Trough Phenytoin Crossmatch 10/02/20 10/02/20 10/03/20 Unknown Unknown 00:01 WBC RBC Hgb Hct MCV MCH MCHC RDW Plt Count Lymph % (Auto) Marion % (Auto) Lymph # (Auto) Marion # (Auto) Baso # (Auto) Seg Neutrophils % Seg Neuts % (Manual) Lymphocytes % (Manual) Monocytes % (Manual) Nucleated RBC % Seg Neutrophils # Seg Neutrophils # Man Lymphocytes # (Manual) Monocytes # (Manual) PT 61.1 H INR 6.92 H* APTT 158.7 H* Fibrinogen < 60 L* D-Dimer > 83945 H ABG pH POC ABG pCO2 POC ABG pO2 ABG pO2 ABG HCO3 ABG Base Excess ABG Hemoglobin ABG Oxyhemoglobin ABG Sodium ABG Potassium ABG Chloride ABG Glucose VBG pH 6.949 L* Oxyhemoglobin Carboxyhemoglobin Sodium Potassium Chloride Carbon Dioxide BUN Creatinine Glucose POC Glucose 196 H Random Insulin C-Peptide Lactic Acid Calcium Ionized Calcium Phosphorus Magnesium AST ALT Alkaline Phosphatase Lactate Dehydrogenase NT-Pro-B Natriuret Pep Total Protein Albumin Arterial Blood Glucose Arterial Blood Ionized Calcium Urine WBC (Auto) Vancomycin Trough Phenytoin Crossmatch 10/03/20 10/03/20 10/03/20 00:40 00:40 00:40 WBC RBC Hgb Hct MCV MCH MCHC RDW Plt Count Lymph % (Auto) Marion % (Auto) Lymph # (Auto) Marion # (Auto) Baso # (Auto) Seg Neutrophils % Seg Neuts % (Manual) Lymphocytes % (Manual) Monocytes % (Manual) Nucleated RBC % Seg Neutrophils # Seg Neutrophils # Man Lymphocytes # (Manual) Monocytes # (Manual) PT 15.1 H INR 1.21 H APTT Fibrinogen D-Dimer ABG pH POC ABG pCO2 POC ABG pO2 ABG pO2 ABG HCO3 ABG Base Excess ABG Hemoglobin ABG Oxyhemoglobin ABG Sodium ABG Potassium ABG Chloride ABG Glucose VBG pH Oxyhemoglobin Carboxyhemoglobin Sodium 136 L Potassium Chloride Carbon Dioxide BUN Creatinine 1.6 H D Glucose 106 H POC Glucose Random Insulin C-Peptide Lactic Acid 5.60 H* Calcium 6.5 L Ionized Calcium Phosphorus Magnesium AST 232 H ALT 104 H Alkaline Phosphatase Lactate Dehydrogenase NT-Pro-B Natriuret Pep Total Protein 3.9 L D Albumin 2.4 L Arterial Blood Glucose Arterial Blood Ionized Calcium Urine WBC (Auto) Vancomycin Trough Phenytoin Crossmatch 10/03/20 10/03/20 10/03/20 02:08 02:08 02:08 WBC 17.6 H RBC 3.27 L Hgb 9.9 L D Hct 29.9 L D MCV MCH MCHC RDW 16.5 H Plt Count 75 L Lymph % (Auto) Marion % (Auto) Lymph # (Auto) Marion # (Auto) Baso # (Auto) Seg Neutrophils % Seg Neuts % (Manual) 76.0 H Lymphocytes % (Manual) Monocytes % (Manual) Nucleated RBC % 8.0 H Seg Neutrophils # Seg Neutrophils # Man 13.4 H Lymphocytes # (Manual) Monocytes # (Manual) PT INR APTT Fibrinogen D-Dimer ABG pH POC ABG pCO2 POC ABG pO2 ABG pO2 ABG HCO3 ABG Base Excess ABG Hemoglobin ABG Oxyhemoglobin ABG Sodium ABG Potassium ABG Chloride ABG Glucose VBG pH Oxyhemoglobin Carboxyhemoglobin Sodium Potassium Chloride Carbon Dioxide 19 L BUN Creatinine 1.4 H Glucose 306 H POC Glucose Random Insulin C-Peptide Lactic Acid 10.50 H* Calcium 6.4 L Ionized Calcium Phosphorus Magnesium AST ALT Alkaline Phosphatase Lactate Dehydrogenase NT-Pro-B Natriuret Pep Total Protein Albumin Arterial Blood Glucose Arterial Blood Ionized Calcium Urine WBC (Auto) Vancomycin Trough Phenytoin Crossmatch 10/03/20 10/03/20 10/03/20 02:42 03:59 05:31 WBC RBC Hgb Hct MCV MCH MCHC RDW Plt Count Lymph % (Auto) Marion % (Auto) Lymph # (Auto) Marion # (Auto) Baso # (Auto) Seg Neutrophils % Seg Neuts % (Manual) Lymphocytes % (Manual) Monocytes % (Manual) Nucleated RBC % Seg Neutrophils # Seg Neutrophils # Man Lymphocytes # (Manual) Monocytes # (Manual) PT INR APTT Fibrinogen D-Dimer ABG pH 7.144 L POC ABG pCO2 54.4 H POC ABG pO2 ABG pO2 ABG HCO3 ABG Base Excess ABG Hemoglobin 10.0 L ABG Oxyhemoglobin ABG Sodium ABG Potassium ABG Chloride 108.0 H ABG Glucose 306 H VBG pH Oxyhemoglobin Carboxyhemoglobin Sodium Potassium Chloride Carbon Dioxide BUN Creatinine Glucose POC Glucose 209 H Random Insulin C-Peptide Lactic Acid 9.20 H* Calcium Ionized Calcium Phosphorus Magnesium AST ALT Alkaline Phosphatase Lactate Dehydrogenase NT-Pro-B Natriuret Pep Total Protein Albumin Arterial Blood Glucose 306 H Arterial Blood Ionized Calcium 3.7 L Urine WBC (Auto) Vancomycin Trough Phenytoin Crossmatch 10/03/20 10/03/20 10/03/20 09:00 09:00 09:00 WBC 27.4 H RBC 2.84 L Hgb 8.5 L Hct 25.1 L MCV MCH MCHC RDW 16.1 H Plt Count 72 L Lymph % (Auto) Marion % (Auto) Lymph # (Auto) Marion # (Auto) Baso # (Auto) Seg Neutrophils % Seg Neuts % (Manual) Lymphocytes % (Manual) 11.0 L Monocytes % (Manual) Nucleated RBC % 3.0 H Seg Neutrophils # Seg Neutrophils # Man 18.4 H Lymphocytes # (Manual) Monocytes # (Manual) 1.9 H PT INR APTT Fibrinogen D-Dimer ABG pH POC ABG pCO2 POC ABG pO2 ABG pO2 ABG HCO3 ABG Base Excess ABG Hemoglobin ABG Oxyhemoglobin ABG Sodium ABG Potassium ABG Chloride ABG Glucose VBG pH Oxyhemoglobin Carboxyhemoglobin Sodium Potassium Chloride Carbon Dioxide BUN Creatinine 1.7 H Glucose 216 H POC Glucose Random Insulin C-Peptide Lactic Acid 9.20 H* Calcium 6.3 L Ionized Calcium Phosphorus Magnesium AST 331 H ALT 171 H Alkaline Phosphatase Lactate Dehydrogenase NT-Pro-B Natriuret Pep Total Protein 3.7 L Albumin 1.9 L Arterial Blood Glucose Arterial Blood Ionized Calcium Urine WBC (Auto) Vancomycin Trough Phenytoin Crossmatch 10/03/20 10/03/20 10/03/20 11:20 11:46 11:50 WBC 28.7 H RBC 2.67 L Hgb 8.0 L Hct 23.7 L MCV MCH MCHC RDW 16.6 H Plt Count 76 L Lymph % (Auto) Marion % (Auto) Lymph # (Auto) Marion # (Auto) Baso # (Auto) Seg Neutrophils % Seg Neuts % (Manual) Lymphocytes % (Manual) Monocytes % (Manual) Nucleated RBC % Seg Neutrophils # Seg Neutrophils # Man Lymphocytes # (Manual) Monocytes # (Manual) PT INR APTT Fibrinogen D-Dimer ABG pH POC ABG pCO2 POC ABG pO2 ABG pO2 ABG HCO3 ABG Base Excess ABG Hemoglobin ABG Oxyhemoglobin ABG Sodium ABG Potassium ABG Chloride ABG Glucose VBG pH Oxyhemoglobin Carboxyhemoglobin Sodium Potassium Chloride Carbon Dioxide BUN Creatinine Glucose POC Glucose 125 H Random Insulin C-Peptide Lactic Acid 8.00 H* Calcium Ionized Calcium Phosphorus Magnesium AST ALT Alkaline Phosphatase Lactate Dehydrogenase NT-Pro-B Natriuret Pep Total Protein Albumin Arterial Blood Glucose Arterial Blood Ionized Calcium Urine WBC (Auto) Vancomycin Trough Phenytoin Crossmatch 10/03/20 10/04/20 10/04/20 11:50 00:40 00:40 WBC RBC Hgb 6.8 L Hct 19.4 L* MCV MCH MCHC RDW Plt Count 49 L Lymph % (Auto) Marion % (Auto) Lymph # (Auto) Marion # (Auto) Baso # (Auto) Seg Neutrophils % Seg Neuts % (Manual) Lymphocytes % (Manual) Monocytes % (Manual) Nucleated RBC % Seg Neutrophils # Seg Neutrophils # Man Lymphocytes # (Manual) Monocytes # (Manual) PT INR APTT Fibrinogen D-Dimer ABG pH 7.244 L POC ABG pCO2 POC ABG pO2 ABG pO2 ABG HCO3 ABG Base Excess -4.5 L ABG Hemoglobin 7.3 L ABG Oxyhemoglobin ABG Sodium ABG Potassium ABG Chloride ABG Glucose VBG pH Oxyhemoglobin Carboxyhemoglobin Sodium Potassium Chloride Carbon Dioxide BUN Creatinine Glucose POC Glucose Random Insulin C-Peptide Lactic Acid Calcium Ionized Calcium Phosphorus Magnesium AST ALT Alkaline Phosphatase Lactate Dehydrogenase NT-Pro-B Natriuret Pep Total Protein Albumin Arterial Blood Glucose Arterial Blood Ionized Calcium Urine WBC (Auto) Vancomycin Trough Phenytoin Crossmatch 10/04/20 10/04/20 10/04/20 03:53 10:00 10:00 WBC 14.6 H RBC 2.57 L Hgb 7.6 L Hct 22.5 L MCV MCH MCHC RDW 15.8 H Plt Count 38 L Lymph % (Auto) 7.7 L Marion % (Auto) Lymph # (Auto) 1.1 L Marion # (Auto) 0.9 H Baso # (Auto) Seg Neutrophils % 85.6 H Seg Neuts % (Manual) Lymphocytes % (Manual) Monocytes % (Manual) Nucleated RBC % Seg Neutrophils # 12.5 H Seg Neutrophils # Man Lymphocytes # (Manual) Monocytes # (Manual) PT INR APTT Fibrinogen D-Dimer ABG pH POC ABG pCO2 POC ABG pO2 110.6 H ABG pO2 ABG HCO3 ABG Base Excess ABG Hemoglobin 6.7 L ABG Oxyhemoglobin ABG Sodium 132.0 L ABG Potassium ABG Chloride ABG Glucose 111 H VBG pH Oxyhemoglobin Carboxyhemoglobin Sodium 134 L D Potassium Chloride 97.6 L Carbon Dioxide BUN Creatinine 1.7 H Glucose POC Glucose Random Insulin C-Peptide Lactic Acid Calcium 6.3 L Ionized Calcium Phosphorus Magnesium AST 203 H ALT 81 H Alkaline Phosphatase Lactate Dehydrogenase NT-Pro-B Natriuret Pep Total Protein 3.9 L Albumin 2.3 L Arterial Blood Glucose 111 H Arterial Blood Ionized Calcium 3.5 L Urine WBC (Auto) Vancomycin Trough Phenytoin Crossmatch 10/04/20 10/04/20 10/04/20 10:00 10:00 10:14 WBC RBC Hgb Hct MCV MCH MCHC RDW Plt Count Lymph % (Auto) Marion % (Auto) Lymph # (Auto) Marion # (Auto) Baso # (Auto) Seg Neutrophils % Seg Neuts % (Manual) Lymphocytes % (Manual) Monocytes % (Manual) Nucleated RBC % Seg Neutrophils # Seg Neutrophils # Man Lymphocytes # (Manual) Monocytes # (Manual) PT INR APTT Fibrinogen D-Dimer > 17730 H ABG pH POC ABG pCO2 POC ABG pO2 ABG pO2 ABG HCO3 ABG Base Excess ABG Hemoglobin ABG Oxyhemoglobin ABG Sodium ABG Potassium ABG Chloride ABG Glucose VBG pH Oxyhemoglobin Carboxyhemoglobin Sodium Potassium Chloride Carbon Dioxide BUN Creatinine Glucose POC Glucose Random Insulin C-Peptide Lactic Acid 3.90 H* Calcium Ionized Calcium Phosphorus Magnesium AST ALT Alkaline Phosphatase Lactate Dehydrogenase NT-Pro-B Natriuret Pep 2788 H Total Protein Albumin Arterial Blood Glucose Arterial Blood Ionized Calcium Urine WBC (Auto) Vancomycin Trough Phenytoin Crossmatch 10/04/20 10/04/20 10/04/20 14:00 14:00 18:00 WBC 15.7 H RBC 3.17 L Hgb 9.3 L 9.6 L Hct 27.2 L 28.0 L MCV MCH MCHC RDW 16.9 H Plt Count 41 L Lymph % (Auto) 8.6 L Marion % (Auto) Lymph # (Auto) Marion # (Auto) 0.9 H Baso # (Auto) Seg Neutrophils % 85.4 H Seg Neuts % (Manual) Lymphocytes % (Manual) Monocytes % (Manual) Nucleated RBC % Seg Neutrophils # 13.4 H Seg Neutrophils # Man Lymphocytes # (Manual) Monocytes # (Manual) PT INR APTT Fibrinogen D-Dimer ABG pH POC ABG pCO2 POC ABG pO2 ABG pO2 ABG HCO3 ABG Base Excess ABG Hemoglobin ABG Oxyhemoglobin ABG Sodium ABG Potassium ABG Chloride ABG Glucose VBG pH Oxyhemoglobin Carboxyhemoglobin Sodium 133 L Potassium Chloride 96.4 L Carbon Dioxide BUN 18 H Creatinine 1.7 H Glucose POC Glucose Random Insulin C-Peptide Lactic Acid Calcium 6.3 L Ionized Calcium Phosphorus Magnesium AST ALT Alkaline Phosphatase Lactate Dehydrogenase NT-Pro-B Natriuret Pep Total Protein Albumin Arterial Blood Glucose Arterial Blood Ionized Calcium Urine WBC (Auto) Vancomycin Trough Phenytoin Crossmatch 10/04/20 10/04/20 10/05/20 18:00 22:00 05:00 WBC 17.6 H RBC 3.34 L Hgb 9.9 L Hct 29.4 L MCV MCH MCHC RDW 17.1 H Plt Count 56 L Lymph % (Auto) 8.5 L [place] % (Auto) Lymph # (Auto) [place] # (Auto) 1.0 H Baso # (Auto) Seg Neutrophils % 85.1 H Seg Neuts % (Manual) Lymphocytes % (Manual) Monocytes % (Manual) Nucleated RBC % Seg Neutrophils # 15.0 H Seg Neutrophils # Man Lymphocytes # (Manual) Monocytes # (Manual) PT INR APTT Fibrinogen D-Dimer ABG pH POC ABG pCO2 POC ABG pO2 ABG pO2 ABG HCO3 ABG Base Excess ABG Hemoglobin ABG Oxyhemoglobin ABG Sodium ABG Potassium ABG Chloride ABG Glucose VBG pH Oxyhemoglobin Carboxyhemoglobin Sodium 136 L Potassium Chloride Carbon Dioxide BUN 18 H Creatinine 1.7 H Glucose POC Glucose Random Insulin C-Peptide Lactic Acid 2.30 H* Calcium 6.6 L Ionized Calcium Phosphorus Magnesium AST ALT Alkaline Phosphatase Lactate Dehydrogenase NT-Pro-B Natriuret Pep Total Protein Albumin Arterial Blood Glucose Arterial Blood Ionized Calcium Urine WBC (Auto) Vancomycin Trough Phenytoin Crossmatch 10/05/20 10/05/20 10/05/20 05:00 05:00 05:03 WBC RBC Hgb Hct MCV MCH MCHC RDW Plt Count Lymph % (Auto) [place] % (Auto) Lymph # (Auto) [place] # (Auto) Baso # (Auto) Seg Neutrophils % Seg Neuts % (Manual) Lymphocytes % (Manual) Monocytes % (Manual) Nucleated RBC % Seg Neutrophils # Seg Neutrophils # Man Lymphocytes # (Manual) Monocytes # (Manual) PT INR APTT Fibrinogen D-Dimer ABG pH 7.458 H POC ABG pCO2 POC ABG pO2 ABG pO2 74.3 L ABG HCO3 27.5 H ABG Base Excess 3.4 H ABG Hemoglobin 10.0 L ABG Oxyhemoglobin ABG Sodium ABG Potassium ABG Chloride ABG Glucose VBG pH Oxyhemoglobin 94.9 L Carboxyhemoglobin Sodium Potassium Chloride Carbon Dioxide BUN 19 H Creatinine 1.8 H Glucose POC Glucose Random Insulin C-Peptide Lactic Acid Calcium 6.8 L Ionized Calcium 3.9 L Phosphorus Magnesium AST 225 H ALT 85 H Alkaline Phosphatase Lactate Dehydrogenase NT-Pro-B Natriuret Pep Total Protein 4.5 L Albumin 2.7 L Arterial Blood Glucose Arterial Blood Ionized Calcium Urine WBC (Auto) Vancomycin Trough Phenytoin Crossmatch 10/05/20 10/05/20 10/05/20 10:10 15:00 19:40 WBC RBC Hgb Hct MCV MCH MCHC RDW Plt Count Lymph % (Auto) [place] % (Auto) Lymph # (Auto) [place] # (Auto) Baso # (Auto) Seg Neutrophils % Seg Neuts % (Manual) Lymphocytes % (Manual) Monocytes % (Manual) Nucleated RBC % Seg Neutrophils # Seg Neutrophils # Man Lymphocytes # (Manual) Monocytes # (Manual) PT INR APTT Fibrinogen D-Dimer ABG pH POC ABG pCO2 POC ABG pO2 ABG pO2 ABG HCO3 ABG Base Excess ABG Hemoglobin ABG Oxyhemoglobin ABG Sodium ABG Potassium ABG Chloride ABG Glucose VBG pH Oxyhemoglobin Carboxyhemoglobin Sodium Potassium 3.5 L Chloride Carbon Dioxide 31 H 32 H BUN 19 H 19 H Creatinine 1.8 H 1.8 H Glucose POC Glucose Random Insulin C-Peptide Lactic Acid Calcium 7.0 L 7.2 L Ionized Calcium Phosphorus Magnesium 2.90 H AST ALT Alkaline Phosphatase Lactate Dehydrogenase NT-Pro-B Natriuret Pep Total Protein Albumin Arterial Blood Glucose Arterial Blood Ionized Calcium Urine WBC (Auto) Vancomycin Trough Phenytoin Crossmatch 10/06/20 10/06/20 10/06/20 01:05 03:12 04:00 WBC 17.1 H RBC 3.47 L Hgb Hct MCV MCH MCHC RDW 17.4 H Plt Count 82 L Lymph % (Auto) 8.3 L [place] % (Auto) Lymph # (Auto) [place] # (Auto) 1.1 H Baso # (Auto) Seg Neutrophils % 83.8 H Seg Neuts % (Manual) Lymphocytes % (Manual) Monocytes % (Manual) Nucleated RBC % Seg Neutrophils # 14.3 H Seg Neutrophils # Man Lymphocytes # (Manual) Monocytes # (Manual) PT INR APTT Fibrinogen D-Dimer ABG pH 7.474 H POC ABG pCO2 POC ABG pO2 129.5 H ABG pO2 ABG HCO3 ABG Base Excess ABG Hemoglobin 11.4 L ABG Oxyhemoglobin ABG Sodium 131.8 L ABG Potassium ABG Chloride ABG Glucose 103 H VBG pH Oxyhemoglobin Carboxyhemoglobin 0.3 L Sodium Potassium Chloride Carbon Dioxide BUN Creatinine Glucose POC Glucose Random Insulin C-Peptide Lactic Acid Calcium Ionized Calcium Phosphorus Magnesium 3.70 H AST ALT Alkaline Phosphatase Lactate Dehydrogenase NT-Pro-B Natriuret Pep Total Protein Albumin Arterial Blood Glucose 103 H Arterial Blood Ionized Calcium 4.2 L Urine WBC (Auto) Vancomycin Trough Phenytoin Crossmatch 10/06/20 10/06/20 10/06/20 04:00 05:31 08:12 WBC RBC Hgb Hct MCV MCH MCHC RDW Plt Count Lymph % (Auto) [place] % (Auto) Lymph # (Auto) [place] # (Auto) Baso # (Auto) Seg Neutrophils % Seg Neuts % (Manual) Lymphocytes % (Manual) Monocytes % (Manual) Nucleated RBC % Seg Neutrophils # Seg Neutrophils # Man Lymphocytes # (Manual) Monocytes # (Manual) PT INR APTT Fibrinogen D-Dimer ABG pH POC ABG pCO2 POC ABG pO2 ABG pO2 ABG HCO3 ABG Base Excess ABG Hemoglobin ABG Oxyhemoglobin ABG Sodium ABG Potassium ABG Chloride ABG Glucose VBG pH Oxyhemoglobin Carboxyhemoglobin Sodium Potassium 3.5 L Chloride Carbon Dioxide BUN 19 H Creatinine 1.8 H Glucose 102 H POC Glucose 116 H Random Insulin C-Peptide Lactic Acid Calcium 7.2 L Ionized Calcium Phosphorus Magnesium 5.40 H AST 307 H ALT 137 H Alkaline Phosphatase Lactate Dehydrogenase NT-Pro-B Natriuret Pep Total Protein 4.5 L Albumin 2.6 L Arterial Blood Glucose Arterial Blood Ionized Calcium Urine WBC (Auto) Vancomycin Trough Phenytoin Crossmatch 10/06/20 10/06/20 10/06/20 11:00 11:50 20:13 WBC RBC Hgb Hct MCV MCH MCHC RDW Plt Count Lymph % (Auto) [place] % (Auto) Lymph # (Auto) [place] # (Auto) Baso # (Auto) Seg Neutrophils % Seg Neuts % (Manual) Lymphocytes % (Manual) Monocytes % (Manual) Nucleated RBC % Seg Neutrophils # Seg Neutrophils # Man Lymphocytes # (Manual) Monocytes # (Manual) PT INR APTT Fibrinogen D-Dimer ABG pH POC ABG pCO2 POC ABG pO2 ABG pO2 ABG HCO3 ABG Base Excess ABG Hemoglobin ABG Oxyhemoglobin ABG Sodium ABG Potassium ABG Chloride ABG Glucose VBG pH Oxyhemoglobin Carboxyhemoglobin Sodium Potassium Chloride Carbon Dioxide BUN Creatinine Glucose POC Glucose 106 H Random Insulin C-Peptide Lactic Acid Calcium Ionized Calcium Phosphorus Magnesium 6.50 H 6.20 H AST ALT Alkaline Phosphatase Lactate Dehydrogenase NT-Pro-B Natriuret Pep Total Protein Albumin Arterial Blood Glucose Arterial Blood Ionized Calcium Urine WBC (Auto) Vancomycin Trough Phenytoin Crossmatch 10/06/20 10/06/20 10/06/20 20:17 22:29 23:57 WBC RBC Hgb Hct MCV MCH MCHC RDW Plt Count Lymph % (Auto) [place] % (Auto) Lymph # (Auto) [place] # (Auto) Baso # (Auto) Seg Neutrophils % Seg Neuts % (Manual) Lymphocytes % (Manual) Monocytes % (Manual) Nucleated RBC % Seg Neutrophils # Seg Neutrophils # Man Lymphocytes # (Manual) Monocytes # (Manual) PT INR APTT Fibrinogen D-Dimer ABG pH POC ABG pCO2 POC ABG pO2 ABG pO2 ABG HCO3 ABG Base Excess ABG Hemoglobin ABG Oxyhemoglobin ABG Sodium ABG Potassium ABG Chloride ABG Glucose VBG pH Oxyhemoglobin Carboxyhemoglobin Sodium Potassium Chloride Carbon Dioxide BUN Creatinine Glucose POC Glucose 112 H 126 H 133 H Random Insulin C-Peptide Lactic Acid Calcium Ionized Calcium Phosphorus Magnesium AST ALT Alkaline Phosphatase Lactate Dehydrogenase NT-Pro-B Natriuret Pep Total Protein Albumin Arterial Blood Glucose Arterial Blood Ionized Calcium Urine WBC (Auto) Vancomycin Trough Phenytoin Crossmatch 10/07/20 10/07/20 10/07/20 00:35 02:22 03:16 WBC RBC Hgb Hct MCV MCH MCHC RDW Plt Count Lymph % (Auto) [place] % (Auto) Lymph # (Auto) [place] # (Auto) Baso # (Auto) Seg Neutrophils % Seg Neuts % (Manual) Lymphocytes % (Manual) Monocytes % (Manual) Nucleated RBC % Seg Neutrophils # Seg Neutrophils # Man Lymphocytes # (Manual) Monocytes # (Manual) PT INR APTT Fibrinogen D-Dimer ABG pH POC ABG pCO2 POC ABG pO2 ABG pO2 ABG HCO3 ABG Base Excess ABG Hemoglobin 11.6 L ABG Oxyhemoglobin ABG Sodium ABG Potassium ABG Chloride ABG Glucose 156 H VBG pH Oxyhemoglobin Carboxyhemoglobin 0.3 L Sodium Potassium Chloride Carbon Dioxide BUN Creatinine Glucose POC Glucose 124 H Random Insulin C-Peptide Lactic Acid Calcium Ionized Calcium Phosphorus Magnesium 5.90 H AST ALT Alkaline Phosphatase Lactate Dehydrogenase NT-Pro-B Natriuret Pep Total Protein Albumin Arterial Blood Glucose 156 H Arterial Blood Ionized Calcium 4.2 L Urine WBC (Auto) Vancomycin Trough Phenytoin Crossmatch 10/07/20 10/07/20 10/07/20 04:06 05:45 07:05 WBC 19.2 H RBC 3.57 L Hgb Hct MCV MCH MCHC 35 H RDW 17.1 H Plt Count 129 L Lymph % (Auto) [place] % (Auto) Lymph # (Auto) [place] # (Auto) Baso # (Auto) Seg Neutrophils % Seg Neuts % (Manual) 94.0 H Lymphocytes % (Manual) 6.0 L Monocytes % (Manual) Nucleated RBC % Seg Neutrophils # Seg Neutrophils # Man 18.0 H Lymphocytes # (Manual) Monocytes # (Manual) PT INR APTT Fibrinogen D-Dimer ABG pH POC ABG pCO2 POC ABG pO2 ABG pO2 ABG HCO3 ABG Base Excess ABG Hemoglobin ABG Oxyhemoglobin ABG Sodium ABG Potassium ABG Chloride ABG Glucose VBG pH Oxyhemoglobin Carboxyhemoglobin Sodium Potassium Chloride Carbon Dioxide BUN Creatinine Glucose POC Glucose 135 H 149 H Random Insulin C-Peptide Lactic Acid Calcium Ionized Calcium Phosphorus Magnesium AST ALT Alkaline Phosphatase Lactate Dehydrogenase NT-Pro-B Natriuret Pep Total Protein Albumin Arterial Blood Glucose Arterial Blood Ionized Calcium Urine WBC (Auto) Vancomycin Trough Phenytoin Crossmatch 10/07/20 10/07/20 10/07/20 07:05 07:05 12:21 WBC RBC Hgb Hct MCV MCH MCHC RDW Plt Count Lymph % (Auto) [place] % (Auto) Lymph # (Auto) [place] # (Auto) Baso # (Auto) Seg Neutrophils % Seg Neuts % (Manual) Lymphocytes % (Manual) Monocytes % (Manual) Nucleated RBC % Seg Neutrophils # Seg Neutrophils # Man Lymphocytes # (Manual) Monocytes # (Manual) PT INR APTT Fibrinogen D-Dimer ABG pH POC ABG pCO2 POC ABG pO2 ABG pO2 ABG HCO3 ABG Base Excess ABG Hemoglobin ABG Oxyhemoglobin ABG Sodium ABG Potassium ABG Chloride ABG Glucose VBG pH Oxyhemoglobin Carboxyhemoglobin Sodium Potassium Chloride Carbon Dioxide BUN 21 H Creatinine 1.7 H Glucose 171 H POC Glucose 124 H Random Insulin C-Peptide Lactic Acid Calcium 7.4 L Ionized Calcium Phosphorus Magnesium 6.10 H AST 245 H ALT 147 H Alkaline Phosphatase Lactate Dehydrogenase NT-Pro-B Natriuret Pep Total Protein 5.3 L Albumin 2.8 L Arterial Blood Glucose Arterial Blood Ionized Calcium Urine WBC (Auto) Vancomycin Trough Phenytoin Crossmatch 10/07/20 10/07/20 10/07/20 19:52 21:00 21:50 WBC RBC Hgb Hct MCV MCH MCHC RDW Plt Count Lymph % (Auto) [place] % (Auto) Lymph # (Auto) [place] # (Auto) Baso # (Auto) Seg Neutrophils % Seg Neuts % (Manual) Lymphocytes % (Manual) Monocytes % (Manual) Nucleated RBC % Seg Neutrophils # Seg Neutrophils # Man Lymphocytes # (Manual) Monocytes # (Manual) PT INR APTT Fibrinogen D-Dimer ABG pH POC ABG pCO2 POC ABG pO2 ABG pO2 ABG HCO3 ABG Base Excess ABG Hemoglobin ABG Oxyhemoglobin ABG Sodium ABG Potassium ABG Chloride ABG Glucose VBG pH Oxyhemoglobin Carboxyhemoglobin Sodium Potassium Chloride Carbon Dioxide BUN Creatinine Glucose POC Glucose 193 H 138 H Random Insulin C-Peptide Lactic Acid Calcium Ionized Calcium 4.4 L Phosphorus Magnesium AST ALT Alkaline Phosphatase Lactate Dehydrogenase NT-Pro-B Natriuret Pep Total Protein Albumin Arterial Blood Glucose Arterial Blood Ionized Calcium Urine WBC (Auto) Vancomycin Trough Phenytoin Crossmatch 10/07/20 10/08/20 10/08/20 23:41 04:20 05:30 WBC RBC Hgb Hct MCV MCH MCHC RDW Plt Count Lymph % (Auto) [place] % (Auto) Lymph # (Auto) [place] # (Auto) Baso # (Auto) Seg Neutrophils % Seg Neuts % (Manual) Lymphocytes % (Manual) Monocytes % (Manual) Nucleated RBC % Seg Neutrophils # Seg Neutrophils # Man Lymphocytes # (Manual) Monocytes # (Manual) PT INR APTT Fibrinogen D-Dimer ABG pH 7.467 H POC ABG pCO2 POC ABG pO2 189.8 H ABG pO2 ABG HCO3 ABG Base Excess ABG Hemoglobin 10.8 L ABG Oxyhemoglobin ABG Sodium ABG Potassium ABG Chloride ABG Glucose 133 H VBG pH Oxyhemoglobin Carboxyhemoglobin Sodium Potassium Chloride Carbon Dioxide BUN Creatinine Glucose POC Glucose 118 H 114 H Random Insulin C-Peptide Lactic Acid Calcium Ionized Calcium Phosphorus Magnesium AST ALT Alkaline Phosphatase Lactate Dehydrogenase NT-Pro-B Natriuret Pep Total Protein Albumin Arterial Blood Glucose 133 H Arterial Blood Ionized Calcium 4.2 L Urine WBC (Auto) Vancomycin Trough Phenytoin Crossmatch 10/08/20 10/08/20 10/08/20 05:43 06:42 06:42 WBC 23.6 H RBC 3.54 L Hgb Hct MCV MCH MCHC RDW 17.8 H Plt Count Lymph % (Auto) [place] % (Auto) Lymph # (Auto) [place] # (Auto) Baso # (Auto) Seg Neutrophils % Seg Neuts % (Manual) 93.0 H Lymphocytes % (Manual) 3.0 L Monocytes % (Manual) Nucleated RBC % 1.0 H Seg Neutrophils # Seg Neutrophils # Man 21.9 H Lymphocytes # (Manual) 0.7 L Monocytes # (Manual) 0.9 H PT INR APTT Fibrinogen D-Dimer ABG pH POC ABG pCO2 POC ABG pO2 ABG pO2 ABG HCO3 ABG Base Excess ABG Hemoglobin ABG Oxyhemoglobin ABG Sodium ABG Potassium ABG Chloride ABG Glucose VBG pH Oxyhemoglobin Carboxyhemoglobin Sodium Potassium Chloride Carbon Dioxide BUN 28 H Creatinine 1.6 H Glucose 141 H POC Glucose 126 H Random Insulin C-Peptide Lactic Acid Calcium 7.6 L Ionized Calcium Phosphorus Magnesium AST 162 H ALT 103 H Alkaline Phosphatase Lactate Dehydrogenase NT-Pro-B Natriuret Pep Total Protein 5.4 L Albumin 2.7 L Arterial Blood Glucose Arterial Blood Ionized Calcium Urine WBC (Auto) Vancomycin Trough Phenytoin Crossmatch 10/08/20 10/08/20 10/08/20 11:20 16:05 20:14 WBC RBC Hgb Hct MCV MCH MCHC RDW Plt Count Lymph % (Auto) [place] % (Auto) Lymph # (Auto) [place] # (Auto) Baso # (Auto) Seg Neutrophils % Seg Neuts % (Manual) Lymphocytes % (Manual) Monocytes % (Manual) Nucleated RBC % Seg Neutrophils # Seg Neutrophils # Man Lymphocytes # (Manual) Monocytes # (Manual) PT INR APTT Fibrinogen D-Dimer ABG pH POC ABG pCO2 POC ABG pO2 ABG pO2 ABG HCO3 ABG Base Excess ABG Hemoglobin ABG Oxyhemoglobin ABG Sodium ABG Potassium ABG Chloride ABG Glucose VBG pH Oxyhemoglobin Carboxyhemoglobin Sodium Potassium Chloride Carbon Dioxide BUN Creatinine Glucose POC Glucose 127 H 172 H 147 H Random Insulin C-Peptide Lactic Acid Calcium Ionized Calcium Phosphorus Magnesium AST ALT Alkaline Phosphatase Lactate Dehydrogenase NT-Pro-B Natriuret Pep Total Protein Albumin Arterial Blood Glucose Arterial Blood Ionized Calcium Urine WBC (Auto) Vancomycin Trough Phenytoin Crossmatch 10/08/20 10/08/20 10/09/20 21:27 23:24 02:10 WBC RBC Hgb Hct MCV MCH MCHC RDW Plt Count Lymph % (Auto) [place] % (Auto) Lymph # (Auto) [place] # (Auto) Baso # (Auto) Seg Neutrophils % Seg Neuts % (Manual) Lymphocytes % (Manual) Monocytes % (Manual) Nucleated RBC % Seg Neutrophils # Seg Neutrophils # Man Lymphocytes # (Manual) Monocytes # (Manual) PT INR APTT Fibrinogen D-Dimer ABG pH POC ABG pCO2 POC ABG pO2 ABG pO2 ABG HCO3 ABG Base Excess ABG Hemoglobin ABG Oxyhemoglobin ABG Sodium ABG Potassium ABG Chloride ABG Glucose VBG pH Oxyhemoglobin Carboxyhemoglobin Sodium Potassium Chloride Carbon Dioxide BUN Creatinine Glucose POC Glucose 140 H 135 H 111 H Random Insulin C-Peptide Lactic Acid Calcium Ionized Calcium Phosphorus Magnesium AST ALT Alkaline Phosphatase Lactate Dehydrogenase NT-Pro-B Natriuret Pep Total Protein Albumin Arterial Blood Glucose Arterial Blood Ionized Calcium Urine WBC (Auto) Vancomycin Trough Phenytoin Crossmatch 10/09/20 10/09/20 10/09/20 03:44 04:39 05:46 WBC 19.7 H RBC 3.51 L Hgb Hct MCV MCH MCHC RDW 17.7 H Plt Count Lymph % (Auto) [place] % (Auto) Lymph # (Auto) [place] # (Auto) Baso # (Auto) Seg Neutrophils % Seg Neuts % (Manual) 86.0 H Lymphocytes % (Manual) 4.0 L Monocytes % (Manual) 9.0 H Nucleated RBC % Seg Neutrophils # Seg Neutrophils # Man 16.9 H Lymphocytes # (Manual) 0.8 L Monocytes # (Manual) 1.8 H PT INR APTT Fibrinogen D-Dimer ABG pH 7.513 H POC ABG pCO2 POC ABG pO2 33.6 L ABG pO2 ABG HCO3 ABG Base Excess ABG Hemoglobin 11.1 L ABG Oxyhemoglobin 70.2 L ABG Sodium ABG Potassium 3.2 L ABG Chloride 108.0 H ABG Glucose 108 H VBG pH Oxyhemoglobin Carboxyhemoglobin Sodium Potassium Chloride Carbon Dioxide BUN Creatinine Glucose POC Glucose 109 H Random Insulin C-Peptide Lactic Acid Calcium Ionized Calcium Phosphorus Magnesium AST ALT Alkaline Phosphatase Lactate Dehydrogenase NT-Pro-B Natriuret Pep Total Protein Albumin Arterial Blood Glucose 108 H Arterial Blood Ionized Calcium 4.3 L Urine WBC (Auto) Vancomycin Trough Phenytoin Crossmatch 10/09/20 10/10/20 10/10/20 05:46 04:00 04:00 WBC 18.4 H RBC Hgb Hct MCV MCH MCHC RDW 17.5 H Plt Count Lymph % (Auto) 9.8 L [place] % (Auto) 8.8 H Lymph # (Auto) [place] # (Auto) 1.6 H Baso # (Auto) Seg Neutrophils % 80.0 H Seg Neuts % (Manual) Lymphocytes % (Manual) Monocytes % (Manual) Nucleated RBC % Seg Neutrophils # 14.7 H Seg Neutrophils # Man Lymphocytes # (Manual) Monocytes # (Manual) PT INR APTT Fibrinogen D-Dimer ABG pH POC ABG pCO2 POC ABG pO2 ABG pO2 ABG HCO3 ABG Base Excess ABG Hemoglobin ABG Oxyhemoglobin ABG Sodium ABG Potassium ABG Chloride ABG Glucose VBG pH Oxyhemoglobin Carboxyhemoglobin Sodium 146 H Potassium 3.2 L 2.9 L* Chloride 108.9 H 112.6 H Carbon Dioxide BUN 34 H 28 H Creatinine 1.4 H 1.3 H Glucose 109 H 101 H POC Glucose Random Insulin C-Peptide Lactic Acid Calcium 7.6 L 7.8 L Ionized Calcium Phosphorus Magnesium AST 137 H 122 H ALT 99 H 81 H Alkaline Phosphatase Lactate Dehydrogenase NT-Pro-B Natriuret Pep Total Protein 5.1 L 5.2 L Albumin 2.6 L 2.7 L Arterial Blood Glucose Arterial Blood Ionized Calcium Urine WBC (Auto) Vancomycin Trough Phenytoin Crossmatch 10/10/20 10/10/20 10/11/20 04:42 09:50 00:44 WBC RBC Hgb Hct MCV MCH MCHC RDW Plt Count Lymph % (Auto) [place] % (Auto) Lymph # (Auto) [place] # (Auto) Baso # (Auto) Seg Neutrophils % Seg Neuts % (Manual) Lymphocytes % (Manual) Monocytes % (Manual) Nucleated RBC % Seg Neutrophils # Seg Neutrophils # Man Lymphocytes # (Manual) Monocytes # (Manual) PT INR APTT Fibrinogen D-Dimer ABG pH 7.534 H POC ABG pCO2 POC ABG pO2 ABG pO2 95.2 H ABG HCO3 ABG Base Excess ABG Hemoglobin 11.3 L ABG Oxyhemoglobin ABG Sodium ABG Potassium ABG Chloride ABG Glucose VBG pH Oxyhemoglobin Carboxyhemoglobin Sodium Potassium Chloride Carbon Dioxide BUN Creatinine Glucose POC Glucose 109 H 106 H Random Insulin C-Peptide Lactic Acid Calcium Ionized Calcium Phosphorus Magnesium AST ALT Alkaline Phosphatase Lactate Dehydrogenase NT-Pro-B Natriuret Pep Total Protein Albumin Arterial Blood Glucose Arterial Blood Ionized Calcium Urine WBC (Auto) Vancomycin Trough Phenytoin Crossmatch 10/11/20 10/11/20 10/11/20 04:00 04:00 06:08 WBC 27.0 H RBC Hgb Hct MCV MCH MCHC RDW 17.7 H Plt Count Lymph % (Auto) 6.3 L [place] % (Auto) Lymph # (Auto) [place] # (Auto) 1.5 H Baso # (Auto) Seg Neutrophils % 87.1 H Seg Neuts % (Manual) Lymphocytes % (Manual) Monocytes % (Manual) Nucleated RBC % Seg Neutrophils # 23.5 H Seg Neutrophils # Man Lymphocytes # (Manual) Monocytes # (Manual) PT INR APTT Fibrinogen D-Dimer ABG pH POC ABG pCO2 POC ABG pO2 ABG pO2 ABG HCO3 ABG Base Excess ABG Hemoglobin ABG Oxyhemoglobin ABG Sodium ABG Potassium ABG Chloride ABG Glucose VBG pH Oxyhemoglobin Carboxyhemoglobin Sodium Potassium 3.2 L Chloride 110.4 H Carbon Dioxide 19 L BUN 22 H Creatinine Glucose 116 H POC Glucose 107 H Random Insulin C-Peptide Lactic Acid Calcium 7.7 L Ionized Calcium Phosphorus Magnesium 1.60 L AST ALT Alkaline Phosphatase Lactate Dehydrogenase NT-Pro-B Natriuret Pep Total Protein Albumin Arterial Blood Glucose Arterial Blood Ionized Calcium Urine WBC (Auto) Vancomycin Trough Phenytoin Crossmatch 10/11/20 10/11/20 10/12/20 11:41 13:26 03:52 WBC RBC Hgb Hct MCV MCH MCHC RDW Plt Count Lymph % (Auto) [place] % (Auto) Lymph # (Auto) [place] # (Auto) Baso # (Auto) Seg Neutrophils % Seg Neuts % (Manual) Lymphocytes % (Manual) Monocytes % (Manual) Nucleated RBC % Seg Neutrophils # Seg Neutrophils # Man Lymphocytes # (Manual) Monocytes # (Manual) PT INR APTT Fibrinogen D-Dimer ABG pH POC ABG pCO2 POC ABG pO2 ABG pO2 ABG HCO3 ABG Base Excess ABG Hemoglobin ABG Oxyhemoglobin ABG Sodium ABG Potassium ABG Chloride ABG Glucose VBG pH Oxyhemoglobin Carboxyhemoglobin Sodium Potassium Chloride Carbon Dioxide BUN Creatinine Glucose POC Glucose 116 H 114 H Random Insulin C-Peptide Lactic Acid Calcium Ionized Calcium Phosphorus Magnesium AST ALT Alkaline Phosphatase Lactate Dehydrogenase NT-Pro-B Natriuret Pep Total Protein Albumin Arterial Blood Glucose Arterial Blood Ionized Calcium Urine WBC (Auto) 24.0 H Vancomycin Trough Phenytoin Crossmatch 10/12/20 10/12/20 10/12/20 04:24 14:47 21:33 WBC RBC Hgb Hct MCV MCH MCHC RDW Plt Count Lymph % (Auto) [place] % (Auto) Lymph # (Auto) [place] # (Auto) Baso # (Auto) Seg Neutrophils % Seg Neuts % (Manual) Lymphocytes % (Manual) Monocytes % (Manual) Nucleated RBC % Seg Neutrophils # Seg Neutrophils # Man Lymphocytes # (Manual) Monocytes # (Manual) PT INR APTT Fibrinogen D-Dimer ABG pH POC ABG pCO2 POC ABG pO2 ABG pO2 ABG HCO3 ABG Base Excess ABG Hemoglobin ABG Oxyhemoglobin ABG Sodium ABG Potassium ABG Chloride ABG Glucose VBG pH Oxyhemoglobin Carboxyhemoglobin Sodium Potassium Chloride 109.9 H Carbon Dioxide 13 L BUN 18 H Creatinine Glucose 119 H POC Glucose 107 H Random Insulin C-Peptide Lactic Acid Calcium 7.6 L Ionized Calcium Phosphorus Magnesium 1.60 L AST ALT Alkaline Phosphatase Lactate Dehydrogenase NT-Pro-B Natriuret Pep Total Protein Albumin Arterial Blood Glucose Arterial Blood Ionized Calcium Urine WBC (Auto) Vancomycin Trough Phenytoin Crossmatch 10/12/20 10/12/20 10/13/20 Unknown Unknown 07:00 WBC 24.3 H RBC 3.38 L Hgb 9.8 L Hct MCV MCH MCHC RDW 18.7 H Plt Count Lymph % (Auto) [place] % (Auto) Lymph # (Auto) [place] # (Auto) Baso # (Auto) Seg Neutrophils % Seg Neuts % (Manual) 93.5 H Lymphocytes % (Manual) 4.5 L Monocytes % (Manual) Nucleated RBC % Seg Neutrophils # Seg Neutrophils # Man 22.7 H Lymphocytes # (Manual) 1.1 L Monocytes # (Manual) PT INR APTT Fibrinogen D-Dimer ABG pH POC ABG pCO2 POC ABG pO2 ABG pO2 ABG HCO3 ABG Base Excess ABG Hemoglobin ABG Oxyhemoglobin ABG Sodium ABG Potassium ABG Chloride ABG Glucose VBG pH Oxyhemoglobin Carboxyhemoglobin Sodium 135 L D Potassium 3.1 L Chloride Carbon Dioxide 17 L BUN Creatinine Glucose 510 H* POC Glucose Random Insulin C-Peptide Lactic Acid Calcium 7.2 L Ionized Calcium Phosphorus Magnesium AST ALT Alkaline Phosphatase Lactate Dehydrogenase NT-Pro-B Natriuret Pep Total Protein Albumin Arterial Blood Glucose Arterial Blood Ionized Calcium Urine WBC (Auto) Vancomycin Trough Phenytoin 5.7 L Crossmatch 10/13/20 10/13/20 10/13/20 07:00 07:00 07:18 WBC 23.6 H RBC 3.26 L Hgb 9.4 L Hct 28.7 L MCV MCH MCHC RDW 18.3 H Plt Count Lymph % (Auto) [place] % (Auto) Lymph # (Auto) [place] # (Auto) Baso # (Auto) Seg Neutrophils % Seg Neuts % (Manual) Lymphocytes % (Manual) Monocytes % (Manual) Nucleated RBC % Seg Neutrophils # Seg Neutrophils # Man Lymphocytes # (Manual) Monocytes # (Manual) PT INR APTT Fibrinogen D-Dimer ABG pH 7.473 H POC ABG pCO2 20.7 L POC ABG pO2 137.9 H ABG pO2 ABG HCO3 ABG Base Excess ABG Hemoglobin 11.2 L ABG Oxyhemoglobin 98.3 H ABG Sodium 135.9 L ABG Potassium ABG Chloride 111.0 H ABG Glucose 109 H VBG pH Oxyhemoglobin Carboxyhemoglobin 0.3 L Sodium 135 L Potassium 3.5 L Chloride 109.1 H Carbon Dioxide 18 L BUN Creatinine Glucose POC Glucose Random Insulin C-Peptide Lactic Acid Calcium 7.3 L Ionized Calcium Phosphorus Magnesium 1.60 L AST ALT Alkaline Phosphatase Lactate Dehydrogenase NT-Pro-B Natriuret Pep Total Protein Albumin Arterial Blood Glucose 109 H Arterial Blood Ionized Calcium Urine WBC (Auto) Vancomycin Trough Phenytoin Crossmatch 10/14/20 10/14/20 10/15/20 04:00 04:00 05:50 WBC 28.6 H 23.2 H RBC 3.61 L 3.43 L Hgb 9.9 L Hct 30.0 L MCV MCH MCHC RDW 18.3 H 18.2 H Plt Count Lymph % (Auto) [place] % (Auto) Lymph # (Auto) [place] # (Auto) Baso # (Auto) Seg Neutrophils % Seg Neuts % (Manual) 88.0 H 90.0 H Lymphocytes % (Manual) 5.0 L 4.0 L Monocytes % (Manual) Nucleated RBC % Seg Neutrophils # Seg Neutrophils # Man 25.2 H 20.9 H Lymphocytes # (Manual) 0.9 L Monocytes # (Manual) 1.4 H 0.9 H PT INR APTT Fibrinogen D-Dimer ABG pH POC ABG pCO2 POC ABG pO2 ABG pO2 ABG HCO3 ABG Base Excess ABG Hemoglobin ABG Oxyhemoglobin ABG Sodium ABG Potassium ABG Chloride ABG Glucose VBG pH Oxyhemoglobin Carboxyhemoglobin Sodium Potassium Chloride 109.9 H Carbon Dioxide 17 L BUN Creatinine Glucose POC Glucose Random Insulin C-Peptide Lactic Acid Calcium Ionized Calcium Phosphorus Magnesium AST ALT Alkaline Phosphatase Lactate Dehydrogenase NT-Pro-B Natriuret Pep Total Protein Albumin Arterial Blood Glucose Arterial Blood Ionized Calcium Urine WBC (Auto) Vancomycin Trough Phenytoin Crossmatch 10/15/20 10/16/20 10/17/20 05:50 11:57 04:57 WBC 15.2 H RBC 3.43 L Hgb Hct MCV MCH MCHC RDW 18.1 H Plt Count Lymph % (Auto) [place] % (Auto) Lymph # (Auto) [place] # (Auto) Baso # (Auto) Seg Neutrophils % Seg Neuts % (Manual) Lymphocytes % (Manual) Monocytes % (Manual) Nucleated RBC % Seg Neutrophils # Seg Neutrophils # Man Lymphocytes # (Manual) Monocytes # (Manual) PT INR APTT Fibrinogen D-Dimer ABG pH POC ABG pCO2 POC ABG pO2 ABG pO2 ABG HCO3 ABG Base Excess ABG Hemoglobin ABG Oxyhemoglobin ABG Sodium ABG Potassium ABG Chloride ABG Glucose VBG pH Oxyhemoglobin Carboxyhemoglobin Sodium Potassium Chloride 110.3 H Carbon Dioxide 18 L BUN Creatinine Glucose 105 H POC Glucose 111 H Random Insulin C-Peptide Lactic Acid Calcium 8.3 L Ionized Calcium Phosphorus Magnesium AST ALT Alkaline Phosphatase Lactate Dehydrogenase NT-Pro-B Natriuret Pep Total Protein Albumin Arterial Blood Glucose Arterial Blood Ionized Calcium Urine WBC (Auto) Vancomycin Trough Phenytoin Crossmatch 10/17/20 10/17/20 10/18/20 05:25 21:16 01:31 WBC RBC Hgb Hct MCV MCH MCHC RDW Plt Count Lymph % (Auto) [place] % (Auto) Lymph # (Auto) [place] # (Auto) Baso # (Auto) Seg Neutrophils % Seg Neuts % (Manual) Lymphocytes % (Manual) Monocytes % (Manual) Nucleated RBC % Seg Neutrophils # Seg Neutrophils # Man Lymphocytes # (Manual) Monocytes # (Manual) PT INR APTT Fibrinogen D-Dimer ABG pH POC ABG pCO2 POC ABG pO2 ABG pO2 ABG HCO3 ABG Base Excess ABG Hemoglobin ABG Oxyhemoglobin ABG Sodium ABG Potassium ABG Chloride ABG Glucose VBG pH Oxyhemoglobin Carboxyhemoglobin Sodium Potassium Chloride Carbon Dioxide BUN Creatinine Glucose POC Glucose 107 H 106 H 119 H Random Insulin C-Peptide Lactic Acid Calcium Ionized Calcium Phosphorus Magnesium AST ALT Alkaline Phosphatase Lactate Dehydrogenase NT-Pro-B Natriuret Pep Total Protein Albumin Arterial Blood Glucose Arterial Blood Ionized Calcium Urine WBC (Auto) Vancomycin Trough Phenytoin Crossmatch 10/18/20 10/18/20 10/19/20 05:45 11:23 01:14 WBC RBC Hgb Hct MCV MCH MCHC RDW Plt Count Lymph % (Auto) [place] % (Auto) Lymph # (Auto) [place] # (Auto) Baso # (Auto) Seg Neutrophils % Seg Neuts % (Manual) Lymphocytes % (Manual) Monocytes % (Manual) Nucleated RBC % Seg Neutrophils # Seg Neutrophils # Man Lymphocytes # (Manual) Monocytes # (Manual) PT INR APTT Fibrinogen D-Dimer ABG pH POC ABG pCO2 POC ABG pO2 ABG pO2 ABG HCO3 ABG Base Excess ABG Hemoglobin ABG Oxyhemoglobin ABG Sodium ABG Potassium ABG Chloride ABG Glucose VBG pH Oxyhemoglobin Carboxyhemoglobin Sodium Potassium Chloride Carbon Dioxide BUN Creatinine Glucose POC Glucose 106 H 115 H 108 H Random Insulin C-Peptide Lactic Acid Calcium Ionized Calcium Phosphorus Magnesium AST ALT Alkaline Phosphatase Lactate Dehydrogenase NT-Pro-B Natriuret Pep Total Protein Albumin Arterial Blood Glucose Arterial Blood Ionized Calcium Urine WBC (Auto) Vancomycin Trough Phenytoin Crossmatch 10/19/20 10/20/20 10/20/20 09:57 05:40 07:59 WBC RBC Hgb Hct MCV MCH MCHC RDW Plt Count Lymph % (Auto) [place] % (Auto) Lymph # (Auto) [place] # (Auto) Baso # (Auto) Seg Neutrophils % Seg Neuts % (Manual) Lymphocytes % (Manual) Monocytes % (Manual) Nucleated RBC % Seg Neutrophils # Seg Neutrophils # Man Lymphocytes # (Manual) Monocytes # (Manual) PT INR APTT Fibrinogen D-Dimer ABG pH POC ABG pCO2 POC ABG pO2 ABG pO2 ABG HCO3 ABG Base Excess ABG Hemoglobin ABG Oxyhemoglobin ABG Sodium ABG Potassium ABG Chloride ABG Glucose VBG pH Oxyhemoglobin Carboxyhemoglobin Sodium Potassium Chloride Carbon Dioxide BUN Creatinine Glucose 106 H POC Glucose 122 H 109 H Random Insulin C-Peptide Lactic Acid Calcium Ionized Calcium Phosphorus Magnesium AST ALT Alkaline Phosphatase Lactate Dehydrogenase NT-Pro-B Natriuret Pep Total Protein Albumin Arterial Blood Glucose Arterial Blood Ionized Calcium Urine WBC (Auto) Vancomycin Trough Phenytoin Crossmatch 10/20/20 10/20/20 10/21/20 16:52 16:52 13:54 WBC 18.8 H 17.0 H RBC Hgb Hct MCV MCH MCHC RDW 17.7 H 17.8 H Plt Count 547 H 544 H Lymph % (Auto) 11.2 L [place] % (Auto) 8.1 H Lymph # (Auto) [place] # (Auto) 1.5 H Baso # (Auto) 0.2 H Seg Neutrophils % 78.8 H Seg Neuts % (Manual) Lymphocytes % (Manual) Monocytes % (Manual) Nucleated RBC % Seg Neutrophils # 14.8 H Seg Neutrophils # Man Lymphocytes # (Manual) Monocytes # (Manual) PT INR APTT Fibrinogen D-Dimer ABG pH POC ABG pCO2 POC ABG pO2 ABG pO2 ABG HCO3 ABG Base Excess ABG Hemoglobin ABG Oxyhemoglobin ABG Sodium ABG Potassium ABG Chloride ABG Glucose VBG pH Oxyhemoglobin Carboxyhemoglobin Sodium Potassium Chloride Carbon Dioxide BUN Creatinine Glucose POC Glucose Random Insulin C-Peptide Lactic Acid Calcium Ionized Calcium Phosphorus Magnesium AST ALT Alkaline Phosphatase Lactate Dehydrogenase NT-Pro-B Natriuret Pep Total Protein Albumin Arterial Blood Glucose Arterial Blood Ionized Calcium Urine WBC (Auto) Vancomycin Trough 34.5 H Phenytoin Crossmatch 10/21/20 10/22/20 10/23/20 13:54 07:26 05:34 WBC 18.7 H 13.0 H RBC 3.64 L 3.50 L Hgb Hct 30.0 L MCV MCH MCHC 35 H RDW 17.7 H 17.6 H Plt Count 502 H 503 H Lymph % (Auto) [place] % (Auto) Lymph # (Auto) [place] # (Auto) Baso # (Auto) Seg Neutrophils % Seg Neuts % (Manual) Lymphocytes % (Manual) Monocytes % (Manual) Nucleated RBC % Seg Neutrophils # Seg Neutrophils # Man Lymphocytes # (Manual) Monocytes # (Manual) PT INR APTT Fibrinogen D-Dimer ABG pH POC ABG pCO2 POC ABG pO2 ABG pO2 ABG HCO3 ABG Base Excess ABG Hemoglobin ABG Oxyhemoglobin ABG Sodium ABG Potassium ABG Chloride ABG Glucose VBG pH Oxyhemoglobin Carboxyhemoglobin Sodium 136 L Potassium Chloride Carbon Dioxide BUN Creatinine Glucose 120 H POC Glucose Random Insulin C-Peptide Lactic Acid Calcium Ionized Calcium Phosphorus Magnesium AST ALT Alkaline Phosphatase Lactate Dehydrogenase NT-Pro-B Natriuret Pep Total Protein Albumin Arterial Blood Glucose Arterial Blood Ionized Calcium Urine WBC (Auto) Vancomycin Trough Phenytoin Crossmatch 10/23/20 10/26/20 10/27/20 05:34 10:30 07:53 WBC 13.6 H RBC 3.38 L Hgb 10.0 L Hct 28.8 L MCV MCH MCHC 35 H RDW 17.6 H Plt Count Lymph % (Auto) [place] % (Auto) Lymph # (Auto) [place] # (Auto) Baso # (Auto) Seg Neutrophils % Seg Neuts % (Manual) Lymphocytes % (Manual) Monocytes % (Manual) Nucleated RBC % Seg Neutrophils # Seg Neutrophils # Man Lymphocytes # (Manual) Monocytes # (Manual) PT INR APTT Fibrinogen D-Dimer ABG pH 7.459 H POC ABG pCO2 POC ABG pO2 ABG pO2 112.2 H ABG HCO3 ABG Base Excess ABG Hemoglobin ABG Oxyhemoglobin ABG Sodium ABG Potassium ABG Chloride ABG Glucose VBG pH Oxyhemoglobin Carboxyhemoglobin Sodium 135 L Potassium Chloride Carbon Dioxide BUN Creatinine Glucose 105 H POC Glucose Random Insulin C-Peptide Lactic Acid Calcium Ionized Calcium Phosphorus Magnesium AST ALT Alkaline Phosphatase Lactate Dehydrogenase NT-Pro-B Natriuret Pep Total Protein Albumin Arterial Blood Glucose Arterial Blood Ionized Calcium Urine WBC (Auto) Vancomycin Trough Phenytoin Crossmatch 10/27/20 10/27/20 10/28/20 07:53 11:31 05:19 WBC RBC Hgb Hct MCV MCH MCHC RDW Plt Count Lymph % (Auto) [place] % (Auto) Lymph # (Auto) [place] # (Auto) Baso # (Auto) Seg Neutrophils % Seg Neuts % (Manual) Lymphocytes % (Manual) Monocytes % (Manual) Nucleated RBC % Seg Neutrophils # Seg Neutrophils # Man Lymphocytes # (Manual) Monocytes # (Manual) PT INR APTT Fibrinogen D-Dimer ABG pH POC ABG pCO2 POC ABG pO2 ABG pO2 ABG HCO3 ABG Base Excess ABG Hemoglobin ABG Oxyhemoglobin ABG Sodium ABG Potassium ABG Chloride ABG Glucose VBG pH Oxyhemoglobin Carboxyhemoglobin Sodium Potassium Chloride Carbon Dioxide BUN 20 H Creatinine Glucose 112 H POC Glucose 113 H 112 H Random Insulin C-Peptide Lactic Acid Calcium Ionized Calcium Phosphorus Magnesium AST 83 H ALT Alkaline Phosphatase Lactate Dehydrogenase NT-Pro-B Natriuret Pep Total Protein Albumin 3.8 L Arterial Blood Glucose Arterial Blood Ionized Calcium Urine WBC (Auto) Vancomycin Trough Phenytoin Crossmatch 10/29/20 10/29/20 10/29/20 07:56 07:56 11:37 WBC 13.6 H RBC Hgb Hct MCV MCH MCHC RDW 17.0 H Plt Count Lymph % (Auto) [place] % (Auto) Lymph # (Auto) [place] # (Auto) Baso # (Auto) Seg Neutrophils % Seg Neuts % (Manual) 80.0 H Lymphocytes % (Manual) Monocytes % (Manual) Nucleated RBC % Seg Neutrophils # Seg Neutrophils # Man 10.9 H Lymphocytes # (Manual) Monocytes # (Manual) PT INR APTT Fibrinogen D-Dimer ABG pH POC ABG pCO2 POC ABG pO2 ABG pO2 ABG HCO3 ABG Base Excess ABG Hemoglobin ABG Oxyhemoglobin ABG Sodium ABG Potassium ABG Chloride ABG Glucose VBG pH Oxyhemoglobin Carboxyhemoglobin Sodium Potassium Chloride Carbon Dioxide BUN Creatinine Glucose POC Glucose 108 H Random Insulin C-Peptide Lactic Acid Calcium Ionized Calcium Phosphorus 4.70 H Magnesium AST ALT Alkaline Phosphatase Lactate Dehydrogenase NT-Pro-B Natriuret Pep Total Protein Albumin Arterial Blood Glucose Arterial Blood Ionized Calcium Urine WBC (Auto) Vancomycin Trough Phenytoin Crossmatch 10/29/20 10/30/20 10/30/20 13:32 12:11 17:19 WBC RBC Hgb Hct MCV MCH MCHC RDW Plt Count Lymph % (Auto) [place] % (Auto) Lymph # (Auto) [place] # (Auto) Baso # (Auto) Seg Neutrophils % Seg Neuts % (Manual) Lymphocytes % (Manual) Monocytes % (Manual) Nucleated RBC % Seg Neutrophils # Seg Neutrophils # Man Lymphocytes # (Manual) Monocytes # (Manual) PT INR APTT Fibrinogen D-Dimer ABG pH POC ABG pCO2 POC ABG pO2 ABG pO2 ABG HCO3 ABG Base Excess ABG Hemoglobin ABG Oxyhemoglobin ABG Sodium ABG Potassium ABG Chloride ABG Glucose VBG pH Oxyhemoglobin Carboxyhemoglobin Sodium Potassium Chloride Carbon Dioxide BUN Creatinine Glucose POC Glucose 108 H 106 H 107 H Random Insulin C-Peptide Lactic Acid Calcium Ionized Calcium Phosphorus Magnesium AST ALT Alkaline Phosphatase Lactate Dehydrogenase NT-Pro-B Natriuret Pep Total Protein Albumin Arterial Blood Glucose Arterial Blood Ionized Calcium Urine WBC (Auto) Vancomycin Trough Phenytoin Crossmatch 10/31/20 10/31/20 11/01/20 03:20 05:43 04:55 WBC RBC Hgb Hct MCV MCH MCHC RDW Plt Count Lymph % (Auto) [place] % (Auto) Lymph # (Auto) [place] # (Auto) Baso # (Auto) Seg Neutrophils % Seg Neuts % (Manual) Lymphocytes % (Manual) Monocytes % (Manual) Nucleated RBC % Seg Neutrophils # Seg Neutrophils # Man Lymphocytes # (Manual) Monocytes # (Manual) PT INR APTT Fibrinogen D-Dimer ABG pH POC ABG pCO2 POC ABG pO2 ABG pO2 ABG HCO3 ABG Base Excess ABG Hemoglobin ABG Oxyhemoglobin ABG Sodium ABG Potassium ABG Chloride ABG Glucose VBG pH Oxyhemoglobin Carboxyhemoglobin Sodium Potassium Chloride Carbon Dioxide BUN Creatinine Glucose POC Glucose 108 H 115 H 108 H Random Insulin C-Peptide Lactic Acid Calcium Ionized Calcium Phosphorus Magnesium AST ALT Alkaline Phosphatase Lactate Dehydrogenase NT-Pro-B Natriuret Pep Total Protein Albumin Arterial Blood Glucose Arterial Blood Ionized Calcium Urine WBC (Auto) Vancomycin Trough Phenytoin Crossmatch 11/01/20 11/01/20 11/01/20 05:01 16:47 21:36 WBC RBC Hgb Hct MCV MCH MCHC RDW Plt Count Lymph % (Auto) [place] % (Auto) Lymph # (Auto) [place] # (Auto) Baso # (Auto) Seg Neutrophils % Seg Neuts % (Manual) Lymphocytes % (Manual) Monocytes % (Manual) Nucleated RBC % Seg Neutrophils # Seg Neutrophils # Man Lymphocytes # (Manual) Monocytes # (Manual) PT INR APTT Fibrinogen D-Dimer ABG pH POC ABG pCO2 POC ABG pO2 ABG pO2 ABG HCO3 ABG Base Excess ABG Hemoglobin ABG Oxyhemoglobin ABG Sodium ABG Potassium ABG Chloride ABG Glucose VBG pH Oxyhemoglobin Carboxyhemoglobin Sodium 135 L Potassium Chloride Carbon Dioxide BUN Creatinine Glucose POC Glucose 116 H 112 H Random Insulin C-Peptide Lactic Acid Calcium Ionized Calcium Phosphorus Magnesium AST 93 H ALT Alkaline Phosphatase 132 H Lactate Dehydrogenase NT-Pro-B Natriuret Pep Total Protein Albumin 3.6 L Arterial Blood Glucose Arterial Blood Ionized Calcium Urine WBC (Auto) Vancomycin Trough Phenytoin Crossmatch 11/02/20 11/02/20 11/02/20 17:45 19:19 19:19 WBC RBC Hgb Hct MCV MCH MCHC RDW Plt Count Lymph % (Auto) [place] % (Auto) Lymph # (Auto) [place] # (Auto) Baso # (Auto) Seg Neutrophils % Seg Neuts % (Manual) Lymphocytes % (Manual) Monocytes % (Manual) Nucleated RBC % Seg Neutrophils # Seg Neutrophils # Man Lymphocytes # (Manual) Monocytes # (Manual) PT INR APTT Fibrinogen D-Dimer ABG pH POC ABG pCO2 POC ABG pO2 ABG pO2 ABG HCO3 ABG Base Excess ABG Hemoglobin ABG Oxyhemoglobin ABG Sodium ABG Potassium ABG Chloride ABG Glucose VBG pH Oxyhemoglobin Carboxyhemoglobin Sodium Potassium Chloride Carbon Dioxide BUN Creatinine Glucose POC Glucose 107 H Random Insulin 43.2 H C-Peptide 6.23 H Lactic Acid Calcium Ionized Calcium Phosphorus Magnesium AST ALT Alkaline Phosphatase Lactate Dehydrogenase NT-Pro-B Natriuret Pep Total Protein Albumin Arterial Blood Glucose Arterial Blood Ionized Calcium Urine WBC (Auto) Vancomycin Trough Phenytoin Crossmatch 11/03/20 11/04/20 11/04/20 21:49 05:00 05:00 WBC 13.8 H RBC Hgb Hct MCV MCH MCHC RDW 16.6 H Plt Count Lymph % (Auto) 11.8 L [place] % (Auto) 11.0 H Lymph # (Auto) [place] # (Auto) 1.5 H Baso # (Auto) Seg Neutrophils % 75.1 H Seg Neuts % (Manual) Lymphocytes % (Manual) Monocytes % (Manual) Nucleated RBC % Seg Neutrophils # 10.4 H Seg Neutrophils # Man Lymphocytes # (Manual) Monocytes # (Manual) PT INR APTT Fibrinogen D-Dimer ABG pH POC ABG pCO2 POC ABG pO2 ABG pO2 ABG HCO3 ABG Base Excess ABG Hemoglobin ABG Oxyhemoglobin ABG Sodium ABG Potassium ABG Chloride ABG Glucose VBG pH Oxyhemoglobin Carboxyhemoglobin Sodium Potassium Chloride Carbon Dioxide BUN Creatinine Glucose 112 H POC Glucose 109 H Random Insulin C-Peptide Lactic Acid Calcium Ionized Calcium Phosphorus Magnesium AST 90 H ALT Alkaline Phosphatase Lactate Dehydrogenase NT-Pro-B Natriuret Pep Total Protein Albumin 3.8 L Arterial Blood Glucose Arterial Blood Ionized Calcium Urine WBC (Auto) Vancomycin Trough Phenytoin Crossmatch 11/04/20 11/04/20 11/05/20 06:03 23:47 07:47 WBC RBC Hgb Hct MCV MCH MCHC RDW Plt Count Lymph % (Auto) [place] % (Auto) Lymph # (Auto) [place] # (Auto) Baso # (Auto) Seg Neutrophils % Seg Neuts % (Manual) Lymphocytes % (Manual) Monocytes % (Manual) Nucleated RBC % Seg Neutrophils # Seg Neutrophils # Man Lymphocytes # (Manual) Monocytes # (Manual) PT INR APTT Fibrinogen D-Dimer ABG pH POC ABG pCO2 POC ABG pO2 ABG pO2 ABG HCO3 ABG Base Excess ABG Hemoglobin ABG Oxyhemoglobin ABG Sodium ABG Potassium ABG Chloride ABG Glucose VBG pH Oxyhemoglobin Carboxyhemoglobin Sodium Potassium Chloride Carbon Dioxide BUN Creatinine Glucose POC Glucose 107 H 121 H 111 H Random Insulin C-Peptide Lactic Acid Calcium Ionized Calcium Phosphorus Magnesium AST ALT Alkaline Phosphatase Lactate Dehydrogenase NT-Pro-B Natriuret Pep Total Protein Albumin Arterial Blood Glucose Arterial Blood Ionized Calcium Urine WBC (Auto) Vancomycin Trough Phenytoin Crossmatch 11/05/20 11/06/20 11/06/20 23:24 17:04 23:36 WBC RBC Hgb Hct MCV MCH MCHC RDW Plt Count Lymph % (Auto) [place] % (Auto) Lymph # (Auto) [place] # (Auto) Baso # (Auto) Seg Neutrophils % Seg Neuts % (Manual) Lymphocytes % (Manual) Monocytes % (Manual) Nucleated RBC % Seg Neutrophils # Seg Neutrophils # Man Lymphocytes # (Manual) Monocytes # (Manual) PT INR APTT Fibrinogen D-Dimer ABG pH POC ABG pCO2 POC ABG pO2 ABG pO2 ABG HCO3 ABG Base Excess ABG Hemoglobin ABG Oxyhemoglobin ABG Sodium ABG Potassium ABG Chloride ABG Glucose VBG pH Oxyhemoglobin Carboxyhemoglobin Sodium Potassium Chloride Carbon Dioxide BUN Creatinine Glucose POC Glucose 111 H 112 H 108 H Random Insulin C-Peptide Lactic Acid Calcium Ionized Calcium Phosphorus Magnesium AST ALT Alkaline Phosphatase Lactate Dehydrogenase NT-Pro-B Natriuret Pep Total Protein Albumin Arterial Blood Glucose Arterial Blood Ionized Calcium Urine WBC (Auto) Vancomycin Trough Phenytoin Crossmatch 11/07/20 11/07/20 11/07/20 03:33 04:44 04:44 WBC RBC Hgb Hct MCV MCH MCHC RDW 16.6 H Plt Count Lymph % (Auto) [place] % (Auto) 13.1 H Lymph # (Auto) [place] # (Auto) 1.3 H Baso # (Auto) Seg Neutrophils % Seg Neuts % (Manual) Lymphocytes % (Manual) Monocytes % (Manual) Nucleated RBC % Seg Neutrophils # Seg Neutrophils # Man Lymphocytes # (Manual) Monocytes # (Manual) PT INR APTT Fibrinogen D-Dimer ABG pH POC ABG pCO2 POC ABG pO2 ABG pO2 ABG HCO3 ABG Base Excess ABG Hemoglobin ABG Oxyhemoglobin ABG Sodium ABG Potassium ABG Chloride ABG Glucose VBG pH Oxyhemoglobin Carboxyhemoglobin Sodium Potassium Chloride Carbon Dioxide BUN Creatinine Glucose 103 H POC Glucose 109 H Random Insulin C-Peptide Lactic Acid Calcium Ionized Calcium Phosphorus 5.30 H Magnesium AST ALT Alkaline Phosphatase Lactate Dehydrogenase NT-Pro-B Natriuret Pep Total Protein Albumin Arterial Blood Glucose Arterial Blood Ionized Calcium Urine WBC (Auto) Vancomycin Trough Phenytoin Crossmatch 11/07/20 11/07/20 11/08/20 15:58 23:46 07:30 WBC RBC Hgb Hct MCV MCH MCHC RDW Plt Count Lymph % (Auto) [place] % (Auto) Lymph # (Auto) [place] # (Auto) Baso # (Auto) Seg Neutrophils % Seg Neuts % (Manual) Lymphocytes % (Manual) Monocytes % (Manual) Nucleated RBC % Seg Neutrophils # Seg Neutrophils # Man Lymphocytes # (Manual) Monocytes # (Manual) PT INR APTT Fibrinogen D-Dimer ABG pH POC ABG pCO2 POC ABG pO2 ABG pO2 ABG HCO3 ABG Base Excess ABG Hemoglobin ABG Oxyhemoglobin ABG Sodium ABG Potassium ABG Chloride ABG Glucose VBG pH Oxyhemoglobin Carboxyhemoglobin Sodium Potassium Chloride Carbon Dioxide BUN Creatinine Glucose POC Glucose 108 H 106 H 109 H Random Insulin C-Peptide Lactic Acid Calcium Ionized Calcium Phosphorus Magnesium AST ALT Alkaline Phosphatase Lactate Dehydrogenase NT-Pro-B Natriuret Pep Total Protein Albumin Arterial Blood Glucose Arterial Blood Ionized Calcium Urine WBC (Auto) Vancomycin Trough Phenytoin Crossmatch 11/08/20 11/08/20 11/09/20 11:48 23:32 17:10 WBC RBC Hgb Hct MCV MCH MCHC RDW Plt Count Lymph % (Auto) [place] % (Auto) Lymph # (Auto) [place] # (Auto) Baso # (Auto) Seg Neutrophils % Seg Neuts % (Manual) Lymphocytes % (Manual) Monocytes % (Manual) Nucleated RBC % Seg Neutrophils # Seg Neutrophils # Man Lymphocytes # (Manual) Monocytes # (Manual) PT INR APTT Fibrinogen D-Dimer ABG pH POC ABG pCO2 POC ABG pO2 ABG pO2 ABG HCO3 ABG Base Excess ABG Hemoglobin ABG Oxyhemoglobin ABG Sodium ABG Potassium ABG Chloride ABG Glucose VBG pH Oxyhemoglobin Carboxyhemoglobin Sodium Potassium Chloride Carbon Dioxide BUN Creatinine Glucose POC Glucose 110 H 116 H 112 H Random Insulin C-Peptide Lactic Acid Calcium Ionized Calcium Phosphorus Magnesium AST ALT Alkaline Phosphatase Lactate Dehydrogenase NT-Pro-B Natriuret Pep Total Protein Albumin Arterial Blood Glucose Arterial Blood Ionized Calcium Urine WBC (Auto) Vancomycin Trough Phenytoin Crossmatch 11/09/20 11/10/20 11/10/20 21:42 05:49 07:17 WBC RBC Hgb Hct MCV MCH MCHC RDW Plt Count Lymph % (Auto) [place] % (Auto) Lymph # (Auto) [place] # (Auto) Baso # (Auto) Seg Neutrophils % Seg Neuts % (Manual) Lymphocytes % (Manual) Monocytes % (Manual) Nucleated RBC % Seg Neutrophils # Seg Neutrophils # Man Lymphocytes # (Manual) Monocytes # (Manual) PT INR APTT Fibrinogen D-Dimer ABG pH POC ABG pCO2 POC ABG pO2 ABG pO2 ABG HCO3 ABG Base Excess ABG Hemoglobin ABG Oxyhemoglobin ABG Sodium ABG Potassium ABG Chloride ABG Glucose VBG pH Oxyhemoglobin Carboxyhemoglobin Sodium Potassium Chloride Carbon Dioxide BUN Creatinine Glucose POC Glucose 110 H 108 H 111 H Random Insulin C-Peptide Lactic Acid Calcium Ionized Calcium Phosphorus Magnesium AST ALT Alkaline Phosphatase Lactate Dehydrogenase NT-Pro-B Natriuret Pep Total Protein Albumin Arterial Blood Glucose Arterial Blood Ionized Calcium Urine WBC (Auto) Vancomycin Trough Phenytoin Crossmatch 11/10/20 11/11/20 20:36 04:58 WBC RBC Hgb Hct MCV MCH MCHC RDW Plt Count Lymph % (Auto) [place] % (Auto) Lymph # (Auto) [place] # (Auto) Baso # (Auto) Seg Neutrophils % Seg Neuts % (Manual) Lymphocytes % (Manual) Monocytes % (Manual) Nucleated RBC % Seg Neutrophils # Seg Neutrophils # Man Lymphocytes # (Manual) Monocytes # (Manual) PT INR APTT Fibrinogen D-Dimer ABG pH POC ABG pCO2 POC ABG pO2 ABG pO2 ABG HCO3 ABG Base Excess ABG Hemoglobin ABG Oxyhemoglobin ABG Sodium ABG Potassium ABG Chloride ABG Glucose VBG pH Oxyhemoglobin Carboxyhemoglobin Sodium Potassium Chloride Carbon Dioxide BUN Creatinine Glucose POC Glucose 111 H 109 H Random Insulin C-Peptide Lactic Acid Calcium Ionized Calcium Phosphorus Magnesium AST ALT Alkaline Phosphatase Lactate Dehydrogenase NT-Pro-B Natriuret Pep Total Protein Albumin Arterial Blood Glucose Arterial Blood Ionized Calcium Urine WBC (Auto) Vancomycin Trough Phenytoin Crossmatch
[2020-11-11 14:22] LABS: Bacteria,Urine 4+ /HPF (Negative); Bilirubin,Urine NEG (Negative); Blood,Urine MOD (Negative); Calcium Oxalate Crystals,Urine FEW; Color,Urine Yellow (Yellow); Mucus,Urine FEW /HPF; RBC,Urine > 182.0 /HPF (0.0-6.0); WBC,Urine > 182.0 /HPF (0.0-6.0)
--- NOTE | 2020-11-11 14:48 | Progress Note ---
Assessment and Plan Assessment and plan: 30 y/o female patient with Eclampsia/help syndrome, s/p emergent section with DIC, hemorrhage, supracervical abdominal hysterectomy, acute respiratory failure , tracheostomy on T-piece with morbid obesity, s/p cardiac arrest 12/08/2019 status post CPR per ACLS, acute hypoxic brain injury Acute kidney injury improved, severe shock requiring pressors, DIC septic shock improved, history of C. difficile colitis on vancomycin. Tracheostomy on T-piece, continues to require 5 L of oxygen. --Acute hypoxic respiratory failure: Tracheostomy on T-piece , 5 L oxygen, saturating 100% Nebulizers, continue oxygen titrate O2 sats to more than 90% Pulmonary critical following COVID-19 negative C. difficile positive; Patient on contact isolation Completed treatment --Afebrile: Blood, urine, tracheal aspirate cultures New cultures negative to date Monitor off antibiotics Closely monitor --Sepsis; received antibiotics Continue to monitor off antibiotics ID following --Cardiac arrest; 10/07/2020 ,status post CPR --COVID-19 test negative; 10/08/2020 --C. difficile colitis test; positive; 10/16/2020 --Acute metabolic encephalopathy --Acute hypoxic brain injury; Supportive care, closely monitor --Acute kidney injury; vasomotor nephropathy Resolved, renal function within normal limits, closely monitor --Shock; monitor of pressors Blood pressures reasonable level --DIC; sepsis, septic shock, resolved --History of preeclampsia; / hemorrhage Status post hysterectomy --History of C. difficile colitis; completed oral vancomycin --DVT/SVT and right upper extremity Very poor prognosis, Consults recommendations noted and appreciated We will closely monitor the patient and adjust management as needed Plan of care reviewed with the patient's nurse. Brief history; 30 year old -[place]oz[place] female CHE 10/25/20 at 36w5d who presents with seizures in triage on 10/02/20. Pt was not able to provide history but per pt's , she presented to the hospital to return a 24 hour urine specimen for analysis. She then suddenly reported that she did not feel good. She was taken to labor and delivery and shortly after arrival, she began seizing. During this time, a code met was called because the patient became hypoxic. She was then noted to be without a pulse. Chest compressions were started immediately, and the patient was emergently taken to the operating room for delivery of the fetus. Off note, This patient has had care at [facility] with comanagement by [facility] since 11 wks complicated by ADHD, morbid obesity, generalized anxiety disorder, panic attacks, chronic narcotic use, fibromyalgia, GERD, Irritable Bowel Syndrome, Migraines, h/o endometrial ablation and ovarian vein embolization, genital herpes, insomnia, LGA fetus, nausea and vomiting, polyhydramnios, quad screen positive for Down's Syndrome, and previous x 3. She is GBS negative. , Patient tracheostomy on ventilatory support, unable to wean, continue supportive care poor prognosis 11:30: Pt brought to L&D triage for evaluation of possible labor. Pt accompanied by her spouse. Pt spouse poor historian; unable to obtain history- allergies at this time. Pt taken from registration to triage area via WC. Pt unresponsive, actively seizing with snorous respirations. apron operator, Kassy, called and requesting assistance. 11:35: Multiple staff at bedside. Pt 02 sat 67% on nonrebreather, unable to read BP . Yifan Theodore CRNA, at bedside for intubation and assistance with IV insertion. INT attempt by multiple RNs unsuccessful at this time. 11:42: Pt being bagged by KORIN, 02% 79%. No pulse palpated, compressions on at this time; bharati young called and Dr. Newberry preparing OR for emergent c/s. 11:44: Continued compressions on stretcher while transporting pt to OR 1. Pt being bagged with jaw thrust manuever in place by KORIN Stringer student. 11:45: Arrival to OR 1. Dr. Newberry and Dr. Portillo present for emergent c/s. Code team arrived for continued care. patient revived and c/s done Patient has been bleeding from C/s site followed by supracervical hysterectomy for severe bleeding, Patient transfused multiple units of PRBC, Patient in DIC. Patient transferred to the ICU Hospital course; 10/03. Patient seen and examined at bedside this morning. Patient is nonresponsive and mechanically ventilated. On pressors. Labs reviewed-has leukocytosis, anemia, thrombocytopenia, ADOLPH and lactic acidosis. Started on IV antibiotics to cover possible sepsis secondary to DIC. Hematology oncology recommendations appreciated-needs additional cryoprecipitate and FFP. Monitor D-dimer, fibrinogen and frequent labs. Nephrology consulted for lactic acidosis and ADOLPH. 10/04. Remains mechanically ventilated. [place] antibiotics. Labs shows improved acidosis - lactic acid 3.5. Hb drop noted. Getting transfused 2 units PRBCs. Platelet count is ~40k. Continue to monitor labs closely. Critical care team on board. 10/05; xray reviewed, concerning for multifocal infilrate, likely underlying Pneumonia, will add ID consult to assist with management of this critically ill patient, start tube feed, closely monitor renal system 10/06: Resumed care, remains on mechanical ventilation. No active bleeding, H&H stable. Continue to monitor CBC and BMP. Continue IV antibiotic for underlying pneumonia. Follow critical care and ID recommendation. 10/07: Remains on mechanical ventilation. No active bleeding, H&H stable. Critical care following, wean off ventilation as tolerated. 10/08: Patient had another cardiac arrest last night. Remains on mechanical ventilation, update family. Continue supportive care -poor prognosis 10/09: Called patient mother and discussed about patient care and management. Answered all question to best of my knowledge and family satisfaction. Patient remains on mechanical ventilation, cardiac arrest x2 so far. Critically sick, poor prognosis 10/10: remains on mechanical ventilation. h/h stable, no active bleeding. monitor CBC/BMP 10/11: WBC trended up with diarrhea, started on vancomycin po. remains on MV, off pressor, tolerating TF 10/12: remains on MV, off pressor, tolerating TF. called family for update but unable to reach, could not leave message as it was full. cont supportive care, wean off vent as tolerated. 10/13/2020; patient is on mechanical ventilation, tolerating tube feeding. Patient has labored breathing. Neuro was consulted and recommend MRI. Patient is on Precedex. Rectal tube in place. 10/14/2020; patient is on mechanical ventilation, Precedex. Patient had fever and blood culture ordered. Patient is on IV vancomycin per ID recommendation. Neuro consulted and recommend MRI. Continue to monitor. Prognosis is guarded. 10/15/2020; patient is on mechanical ventilation, Precedex. Patient had fever and blood culture ordered. Patient is on IV vancomycin per ID recommendation. Neuro consulted and recommend MRI. Continue to monitor. Prognosis is guarded. 10/17: Remains with C.DIFF and Bactermia, Poor prognosis. No purposeful movement. MRI and EEG discussed with Intensvisit, Continue aggressive BP control. 10/18: Blood pressure better controlled MRI done 10/15 shows mild improvement in edema. We will continue to monitor mother was at bedside yesterday. Nursing documentation trach and PEG discussed with the mother including goals of care. She is still in denial about the gravity of her daughters her condition which is understandable considering her age. Continue aggressive management at this time. Await for bacteremia to clear by ID before placing PICC line. 10/19: Patient for possible PEG and Trach, ID following, repeat cultures remain negative. Poor prognosis 10/20: Pt noted to DVT and SVT in the RUE, Vascular consult and will also obtain Hematology for possible considering changing in Anticoagulation. CONTINUE TO MONITOR H/H and PLT. Family updated by [employer]ens[employer]. Heparin gtt started. Will check CBC and BMP 10/21: Continue supporive care, Diarrhea now resolving, But still with persistent Fever, May need repeat CT/AP per ID, still with profused Encephalopathy 10/22: Continue supportive care, weaning, awaiting repeat Imaging. FOLLOW Fever curve. Enoxparin restarted 10/23: Continue supportive care, wean as tolerated. 10/24; Started on CPAP trial, discussed with pulmonary, still with diarrhea. 10/25: Patients seen and examined, no clinical changes, still with diarrhea. ?meaningful recovery. 10/26: Clinically unchanged, continue CPAP trial, Will discuss with Neurology about re-evaluation, ?Need for repeat CT head. ?PRESS considering initial elevated BP, now stable. 10/27; tracheostomy on vent, weaning trials, vital signs noted, poor prognosis 10/28; unable to wean, tracheostomy on vent. Sepsis. Continue current management. Consults and recommendations noted and appreciated 10/30/2020;Patient on T-piece 5 L of oxygen not in acute distress, noncommunicative 11/02/2020; patient on T-piece 5 L of oxygen 11/03/2020; patient's fever slightly improved low-grade, continue current management, remains on T-piece with 5 L of oxygen 11/04/2020; T-max last 24 hours 100.3 F, new cultures negative to date, monitor off antibiotics Patient is off Levophed, blood pressures reasonable level, tracheostomy on T-p iece 3 to 5 L nasal cannula oxygen 11/05/2020; tracheostomy on T-piece patient remains on 5 L of nasal cannula oxygen, unresponsive severe hypoxic brain injury I called patient's mother Ms. Pamela Bassett as well as patient's spouse Mr. Danilo Dimas at [phone] unable to reach them Left voicemail on Ms. Pamela Bassettz phone and encouraged him to call back 11/06/2020; I tried to call again today Ms. Pamela Bassett to discuss patient's condition and treatment plan and update consultants recommendations and patient's prognosis., unable to reach her 11/10/2020; family conference was held by case management yesterday 11/09/2020, family decided and agreed for SNF placement 11/11/2020; patient seen and examined, clinically no change tracheostomy on 5 L of nasal cannula oxygen, hemodynamically and clinically stable for discharge To LTAC versus SNF, DC planning per case management I will call patient's spouse and patient's mother to update on patient's condition today The high probability of a clinically significant, sudden or life threatening deterioration of the [MULTIPLE ORGAN] system(s) required my full and direct attention, intervention and personal management. The aggregate critical care time was [31] minutes. This time is in addition to time spent performing reported procedures but includes the following: [X] Data Review and interpretation [X] Patient assessment and monitoring of vital signs [X] Documentation [X] Medication orders and management History Interval history: I seen and examined the patient at the bedside in ICU this morning Patient's chart and medications reviewed Tracheostomy on 5 L of nasal cannula oxygen Patient is unresponsive noncommunicative Slightly agitated Vital signs reviewed Hospitalist Physical - Constitutional Vitals: Temp Pulse Resp BP Pulse Ox 99.2 F 96 H 20 139/76 100 11/11/20 12:00 11/11/20 13:43 11/11/20 11:01 11/11/20 13:43 11/11/20 11:01 General appearance: Present: no acute distress, well-nourished, obese, other (Patient is restless) - EENT Eyes: Present: PERRL, EOM intact - Neck Neck: Present: supple, normal ROM - Respiratory Respiratory effort: normal Respiratory: bilateral: diminished, rhonchi, negative: rales, wheezing - Cardiovascular Rhythm: regular Heart Sounds: Present: S1 & S2 - Extremities Extremities: no ischemia, No edema - Abdominal General gastrointestinal: soft, non-tender, non-distended, normal bowel sounds - Integumentary Integumentary: Present: clear - Psychiatric Psychiatric: appropriate mood/affect, cooperative - Neurologic Neurologic: CNII-XII intact, moves all extremities HEART Score - HEART Score Age: < 45 Risk factors: 1-2 risk factors - Critical Actions Critical Actions: >7 pts:50-65% risk of adverse cardiac event. Early invasive measures Results - Labs CBC & Chem 7: 11/07/20 04:44 11/07/20 04:44 Labs: Laboratory Last Values WBC 10.2 K/mm3 (4.5-11.0) 11/07/20 04:44 RBC 3.88 M/mm3 (3.65-5.03) 11/07/20 04:44 Hgb 11.0 gm/dl (10.1-14.3) 11/07/20 04:44 Hgb Comment See scanned result 10/04/20 Unknown Hct 32.6 % (30.3-42.9) 11/07/20 04:44 MCV 84 fl (79-97) 11/07/20 04:44 MCH 28 pg (28-32) 11/07/20 04:44 MCHC 34 % (30-34) 11/07/20 04:44 RDW 16.6 % (13.2-15.2) H 11/07/20 04:44 Plt Count 259 K/mm3 (140-440) 11/07/20 04:44 Lymph % (Auto) 15.2 % (13.4-35.0) 11/07/20 04:44 [place] % (Auto) 13.1 % (0.0-7.3) H 11/07/20 04:44 Eos % (Auto) 2.5 % (0.0-4.3) 11/07/20 04:44 Baso % (Auto) 0.6 % (0.0-1.8) 11/07/20 04:44 Lymph # (Auto) 1.6 K/mm3 (1.2-5.4) 11/07/20 04:44 [place] # (Auto) 1.3 K/mm3 (0.0-0.8) H 11/07/20 04:44 Eos # (Auto) 0.3 K/mm3 (0.0-0.4) 11/07/20 04:44 Baso # (Auto) 0.1 K/mm3 (0.0-0.1) 11/07/20 04:44 Add Manual Diff Complete 10/29/20 07:56 Total Counted 100 10/29/20 07:56 Seg Neutrophils % 68.6 % (40.0-70.0) 11/07/20 04:44 Seg Neuts % (Manual) 80.0 % (40.0-70.0) H 10/29/20 07:56 Band Neutrophils % 2.0 % 10/15/20 05:50 Lymphocytes % (Manual) 15.0 % (13.4-35.0) 10/29/20 07:56 Reactive Lymphs % (Man) 1.0 % 10/02/20 12:18 Monocytes % (Manual) 4.0 % (0.0-7.3) 10/29/20 07:56 Eosinophils % (Manual) 1.0 % (0.0-4.3) 10/29/20 07:56 Myelocytes % 2.0 % 10/02/20 13:05 Metamyelocytes % 1.0 % 10/14/20 04:00 Nucleated RBC % Not Reportable 10/29/20 07:56 Seg Neutrophils # 7.0 K/mm3 (1.8-7.7) 11/07/20 04:44 Seg Neutrophils # Man 10.9 K/mm3 (1.8-7.7) H 10/29/20 07:56 Band Neutrophils # 0.0 K/mm3 10/29/20 07:56 Lymphocytes # (Manual) 2.0 K/mm3 (1.2-5.4) 10/29/20 07:56 Abs React Lymphs (Man) 0.0 K/mm3 10/29/20 07:56 Monocytes # (Manual) 0.5 K/mm3 (0.0-0.8) 10/29/20 07:56 Eosinophils # (Manual) 0.1 K/mm3 (0.0-0.4) 10/29/20 07:56 Basophils # (Manual) 0.0 K/mm3 (0.0-0.1) 10/29/20 07:56 Metamyelocytes # 0.0 K/mm3 10/29/20 07:56 Myelocytes # 0.0 K/mm3 10/29/20 07:56 Promyelocytes # 0.0 K/mm3 10/29/20 07:56 Blast Cells # 0.0 K/mm3 10/29/20 07:56 WBC Morphology Not Reportable 10/29/20 07:56 Hypersegmented Neuts Not Reportable 10/29/20 07:56 Hyposegmented Neuts Not Reportable 10/29/20 07:56 Hypogranular Neuts Not Reportable 10/29/20 07:56 Smudge Cells Not Reportable 10/29/20 07:56 Toxic Granulation Not Reportable 10/29/20 07:56 Toxic Vacuolation Not Reportable 10/29/20 07:56 Dohle Bodies Not Reportable 10/29/20 07:56 Pelger-Huet Anomaly Not Reportable 10/29/20 07:56 Ester Rods Not Reportable 10/29/20 07:56 Platelet Estimate Consistent w auto 10/29/20 07:56 Clumped Platelets Not Reportable 10/29/20 07:56 Plt Clumps, EDTA Not Reportable 10/29/20 07:56 Large Platelets Few 10/29/20 07:56 Giant Platelets Not Reportable 10/29/20 07:56 Platelet Satelliting Not Reportable 10/29/20 07:56 Plt Morphology Comment Not Reportable 10/29/20 07:56 RBC Morphology Not Reportable 10/29/20 07:56 Dimorphic RBCs Not Reportable 10/29/20 07:56 Polychromasia Rare 10/29/20 07:56 Hypochromasia Few 10/29/20 07:56 Poikilocytosis Not Reportable 10/29/20 07:56 Anisocytosis Not Reportable 10/29/20 07:56 Microcytosis Not Reportable 10/29/20 07:56 Macrocytosis Not Reportable 10/29/20 07:56 Spherocytes Not Reportable 10/29/20 07:56 Pappenheimer Bodies Not Reportable 10/29/20 07:56 Sickle Cells Not Reportable 10/29/20 07:56 Target Cells Few 10/29/20 07:56 Tear Drop Cells Not Reportable 10/29/20 07:56 Ovalocytes Not Reportable 10/29/20 07:56 Stomatocytes Few 10/14/20 04:00 Helmet Cells Not Reportable 10/29/20 07:56 Burk-[place] Bodies Not Reportable 10/29/20 07:56 [place] Rings Not Reportable 10/29/20 07:56 [place] Cells Not Reportable 10/29/20 07:56 Bite Cells Not Reportable 10/29/20 07:56 Crenated Cell Not Reportable 10/29/20 07:56 Elliptocytes Not Reportable 10/29/20 07:56 Acanthocytes (Spur) Not Reportable 10/29/20 07:56 Rouleaux Not Reportable 10/29/20 07:56 Hemoglobin C Crystals Not Reportable 10/29/20 07:56 Schistocytes Not Reportable 10/29/20 07:56 Malaria parasites Not Reportable 10/29/20 07:56 Sickle Cell Solubility See scanned result 10/04/20 Unknown Hemoglobin A See scanned result 10/04/20 Unknown Hemoglobin A2 See scanned result 10/04/20 Unknown Hemoglobin A2 Prime See scanned result 10/04/20 Unknown Hemoglobin C See scanned result 10/04/20 Unknown Hemoglobin D See scanned result 10/04/20 Unknown Hemoglobin E See scanned result 10/04/20 Unknown Hgb F Diffential Stain See scanned result 10/04/20 Unknown Hemoglobin F Quant See scanned result 10/04/20 Unknown Hemoglobin G See scanned result 10/04/20 Unknown Hemoglobin S See scanned result 10/04/20 Unknown Hemoglobin [place] See scanned result 10/04/20 Unknown Hemoglobin [place] See scanned result 10/04/20 Unknown Hemoglobin Analilia See scanned result 10/04/20 Unknown Variant Hemoglobin See scanned result 10/04/20 Unknown Abnorm Hgb IEF Confirm See scanned result 10/04/20 Unknown Hemoglobin Interpret See scanned result 10/04/20 Unknown Hemoglobinopathy Note See scanned result 10/04/20 Unknown Sharad Bodies Not Reportable 10/29/20 07:56 Hem Pathologist Commnt No 10/29/20 07:56 PT 13.6 Sec. (12.2-14.9) 10/21/20 13:54 INR 1.06 (0.87-1.13) 10/21/20 13:54 APTT 31.6 Sec. (24.2-36.6) 10/03/20 00:40 Fibrinogen 336 mg/dl (211-480) 10/04/20 10:00 D-Dimer > 50101 ng/mlDDU (0-234) H 10/04/20 10:00 ABG pH 7.459 pH Units (7.350-7.450) H 10/26/20 10:30 POC ABG pCO2 20.7 mmHg (32.0-48.0) L 10/13/20 07:18 ABG pCO2 32.4 mm Hg 10/26/20 10:30 POC ABG pO2 137.9 mmHg (83-108) H 10/13/20 07:18 ABG pO2 112.2 mm Hg (80.0-90.0) H 10/26/20 10:30 POC ABG HCO3 14.8 10/13/20 07:18 ABG HCO3 22.5 mmol/L (20.0-26.0) 10/26/20 10:30 ABG O2 Saturation 98.2 % (95.0-99.0) 10/26/20 10:30 ABG O2 Content 18.5 (0.0-44) 10/26/20 10:30 POC ABG Base Excess -6.9 10/13/20 07:18 ABG Base Excess -0.6 mmol/L (-2.0-3.0) 10/26/20 10:30 ABG Hemoglobin 13.5 gm/dl (12.0-16.0) 10/26/20 10:30 ABG Oxyhemoglobin 98.3 (94-98) H 10/13/20 07:18 ABG Carboxyhemoglobin 1.3 % (0.0-5.0) 10/26/20 10:30 ABG Methemoglobin 0.5 % (0.0-1.5) 10/26/20 10:30 ABG Sodium 135.9 mmol/L (136.0-145.0) L 10/13/20 07:18 ABG Potassium 3.7 mmol/L (3.40-4.50) 10/13/20 07:18 ABG Chloride 111.0 mmol/L (98-107) H 10/13/20 07:18 ABG Glucose 109 mg/dL (65-95) H 10/13/20 07:18 VBG pH 6.949 (7.320-7.420) L* 10/02/20 Unknown Oxyhemoglobin 96.5 % (95.0-99.0) 10/26/20 10:30 Carboxyhemoglobin 0.3 (0.5-1.5) L 10/13/20 07:18 FiO2 25 % 10/26/20 10:30 Sodium 138 mmol/L (137-145) 11/07/20 04:44 Potassium 4.4 mmol/L (3.6-5.0) 11/07/20 04:44 Chloride 100.8 mmol/L (98-107) 11/07/20 04:44 Carbon Dioxide 23 mmol/L (22-30) 11/07/20 04:44 Anion Gap 19 mmol/L 11/07/20 04:44 BUN 12 mg/dL (7-17) 11/07/20 04:44 Creatinine 0.6 mg/dL (0.6-1.2) 11/07/20 04:44 Estimated GFR > 60 ml/min 11/07/20 04:44 BUN/Creatinine Ratio 20 % 11/07/20 04:44 Glucose 103 mg/dL (65-100) H 11/07/20 04:44 POC Glucose 109 mg/dL (70-105) H 11/11/20 04:58 Random Insulin 43.2 uIU/mL (<=19.6) H 11/02/20 19:19 C-Peptide 6.23 ng/mL (0.80-3.85) H 11/02/20 19:19 Lactic Acid 1.90 mmol/L (0.7-2.0) 10/04/20 22:00 Uric Acid 7.5 mg/dL (3.5-7.6) 10/02/20 13:05 Calcium 9.2 mg/dL (8.4-10.2) 11/07/20 04:44 Ionized Calcium 4.4 mg/dL (4.8-5.6) L 10/07/20 21:00 Phosphorus 5.30 mg/dL (2.5-4.5) H 11/07/20 04:44 Magnesium 2.00 mg/dL (1.7-2.3) 11/07/20 04:44 Total Bilirubin 0.50 mg/dL (0.1-1.2) 11/04/20 05:00 AST 90 units/L (5-40) H 11/04/20 05:00 ALT 36 units/L (7-56) 11/04/20 05:00 Alkaline Phosphatase 122 units/L (35-129) 11/04/20 05:00 Lactate Dehydrogenase 769 units/L (91-180) H 10/02/20 13:05 C-Reactive Protein 0.70 mg/dL (0.00-1.30) 11/11/20 13:50 NT-Pro-B Natriuret Pep 2788 pg/mL (0-450) H 10/04/20 10:00 Total Protein 7.4 g/dL (6.3-8.2) 11/04/20 05:00 Albumin 3.8 g/dL (3.9-5) L 11/04/20 05:00 Albumin/Globulin Ratio 1.1 % 11/04/20 05:00 Procalcitonin 0.06 ng/mL (<0.15) 10/27/20 07:53 Arterial Blood Glucose 109 mg/dL (65-95) H 10/13/20 07:18 Arterial Blood Ionized Calcium 4.6 mg/dL (4.6-5.3) 10/13/20 07:18 Urine Color Yellow (Yellow) 11/11/20 13:50 Urine Turbidity Cloudy (Clear) 11/11/20 13:50 Urine pH 6.0 (5.0-7.0) 11/11/20 13:50 Ur Specific [place] 1.013 (1.003-1.030) 11/11/20 13:50 Urine Protein 100 mg/dl mg/dL (Negative) 11/11/20 13:50 Urine Glucose (UA) Neg mg/dL (Negative) 11/11/20 13:50 Urine Ketones Neg mg/dL (Negative) 11/11/20 13:50 Urine Blood Mod (Negative) 11/11/20 13:50 Urine Nitrite Pos (Negative) 11/11/20 13:50 Urine Bilirubin Neg (Negative) 11/11/20 13:50 Urine Urobilinogen 2.0 mg/dL (<2.0) 11/11/20 13:50 Ur Leukocyte Esterase Lg (Negative) 11/11/20 13:50 Urine WBC (Auto) > 182.0 /HPF (0.0-6.0) H 11/11/20 13:50 Urine RBC (Auto) > 182.0 /HPF (0.0-6.0) 11/11/20 13:50 U Epithel Cells (Auto) 1.0 /HPF (0-13.0) 11/11/20 13:50 Urine Bacteria (Auto) 4+ /HPF (Negative) 11/11/20 13:50 Urine WBC Clumps 3+ /HPF 11/11/20 13:50 Calcium Oxalate Crystal Few 11/11/20 13:50 Urine Mucus Few /HPF 11/11/20 13:50 Vancomycin Trough 12.6 ug/mL (5.0-20.0) 10/21/20 13:54 Random Vancomycin 10.7 ug/mL (0-40.0) 10/16/20 13:09 Phenytoin 5.7 ug/mL (10.0-20.0) L 10/13/20 07:00 C. difficile Tox (PCR) Positive (Negative) 10/16/20 10:22 Coronavirus (PCR) Negative (Negative) 10/08/20 14:15 Blood Type O POSITIVE 10/02/20 12:50 Antibody Screen Negative 10/02/20 12:50 Crossmatch See Detail 10/02/20 12:50 Microbiology: Microbiology 11/06/20 13:23 Peripheral/Venous Blood Culture - Final NO GROWTH AFTER 5 DAYS 11/06/20 13:23 Peripheral/Venous Blood Culture - Final NO GROWTH AFTER 5 DAYS - Diagnostic Impressions Diagnostic Impressions: Echocardiogram 10/03/20 13:42 Transthoracic Echocardiogram Indication: S/P Cardiac Arrest R/O Cardiomyopathy BP: 133/71 Conclusions *Global left ventricular systolic function is normal. *The estimated ejection fraction is 60-65%. *There is trace of mitral regurgitation. *The right 0heart chambers are both slightly dilated. *There is mild tricuspid regurgitation. *There is mild-moderate pulmonary hypertension. *The right ventricular systolic pressure is calculated at 44 mmHg. *The study quality is technically difficult. Findings Procedure Info: The study quality is technically difficult. The study is technically limited due to patient body habitus. The study was technically limited due to the patient's inability to lay in the left lateral decubitus position. Left Ventricle: The left ventricular chamber size is normal. There is no left ventricular hypertrophy. Global left ventricular systolic function is normal. The estimated ejection fraction is 60-65%. Left Atrium: The left atrial chamber size is normal. Right Ventricle: The right ventricle is slightly dilated. Right Atrium: The right atrium is mildly dilated. Aortic Valve: The aortic valve leaflets are mildly thickened. There is no evidence of aortic regurgitation. There is no evidence of aortic stenosis. Mitral Valve: The mitral valve leaflets are mildly thickened. There is trace of mitral regurgitation. There is no evidence of mitral stenosis. Tricuspid Valve: There is mild tricuspid regurgitation. The right ventricular systolic pressure is calculated at 44 mmHg. There is evidence of mild pulmonary hypertension. Pulmonic Valve: There is trace pulmonic regurgitation. Pericardium: There is no pericardial effusion. Aorta: There is no dilatation of the ascending aorta. There is no dilatation of the aortic root. Venous: The inferior vena cava is dilated. Measurements Chambers 2D Name Value Normal Range IVSd (2D) 1 cm (0.6 - 1.1) LVPWd (2D) 1.01 cm (0.6 - 1.1) LVIDd (2D) 4.58 cm (3.7 - 5.6) LVIDs (2D) 3.17 cm (2 - 3.8) LV FS (2D) 30.93 % - EF Teichholz (2D) 58.66 % - Ao root diameter (2D) 2.94 cm (2 - 3.7) Volumes/Mass Name Value Normal Range LA ESV SP 4CH (A/L) 72.82 ml - LA ESV SP 2CH (A/L) 66.86 ml - LA ESV BP (A/L) 74.49 ml - LA ESV SP 4CH (MOD) 71.03 ml - LA ESV SP 2CH (MOD) 64.3 ml - LV EDV SP 4CH (MOD) 98.82 ml - LV ESV SP 4CH (MOD) 24.8 ml - EF SP 4CH (MOD) 74.9 % - LV EDV SP 2CH (MOD) 86.1 ml - LV ESV SP 2CH (MOD) 36.93 ml - EF SP 2CH (MOD) 57.11 % - LV EDV BP 94.4 ml - LV ESV BP 32.66 ml - BP EF (MOD) 65.4 % - Diastolic/Systolic Function Name Value Normal Range MV E-wave Vmax 1.04 m/sec - MV deceleration time 160.46 msec - MV A-wave Vmax 0.92 m/sec - MV E:A ratio 1.14 ratio - Aortic Valve Name Value Normal Range AV Vmax 2.12 m/sec - AV VTI 22.37 cm - AV peak gradient 17.95 mmHg - AV mean gradient 7.29 mmHg - LVOT diameter 2.01 cm - LVOT Vmax 1.8 m/sec - LVOT VTI 27.17 cm - LVOT peak gradient 12.91 mmHg - LVOT mean gradient 6.83 mmHg - SV LVOT 86.42 ml - ANITA (continuity Vmax) 2.7 cm2 - ANITA (continuity VTI) 3.86 cm2 - Ascending Ao 3.18 cm - Tricuspid Valve Name Value Normal Range TV E-wave Vmax 0.88 m/sec - TR Vmax 3.01 m/sec - TR peak gradient 36.27 mmHg - RAP 8 mmHg - RVSP 44 mmHg - IVC diameter 2.65 cm (1.2 - 2.3) Pulmonic Valve/Qp:Qs Name Value Normal Range PV Vmax 1.22 m/sec - PV peak gradient 5.91 mmHg - RVOT Vmax 0.87 m/sec - RVOT VTI 13.32 cm - RVOT peak gradient 3 mmHg - PV acceleration time 110.37 msec - [place]/IV: Voiding Method Indwelling Catheter IV Catheter Type [Right Foot] INT / Saline Lock IV Catheter Type [Left Forearm Peripheral IV ] IV Catheter Type [Left Wrist] INT / Saline Lock IV Catheter Type [Right Hand] INT / Saline Lock IV Catheter Type [Right INT / Saline Lock Antecubital] IV Catheter Type [Right Upper Mid-line arm] IV Catheter Type [Left Triple Lumen Cath Internal Jugular] IV Catheter Type [Left Hand] Peripheral IV IV Catheter Type [Left Peripheral IV Antecubital] Active Medications - Current Medications Current Medications: Generic Name Dose Route Start Last Admin Trade Name Freq PRN Reason Stop Dose Admin Acetaminophen 650 mg 10/05/20 16:34 11/10/20 05:59 Acetaminophen 325 Mg/10.15 Ml Oral Liqd Unit Dose FEEDTUBE 650 mg Q6H PRN Administration Non Cardiac Pain or Temp>100.5 Albuterol 2.5 mg 11/05/20 13:03 11/06/20 13:04 Albuterol 2.5 Mg/3 Ml Nebu IH 2.5 mg Q4HRT PRN Administration Shortness Of Breath Lipase/Protease/Amylase 1 each 10/05/20 11:09 Lipase 10,500/Protease 25,000/Amylase 43,750 (Units) Dr Barakat FEEDTUBE PRN PRN For Clogged Feeding Tube Enoxaparin Sodium 40 mg 10/22/20 10:00 11/11/20 09:01 Enoxaparin 40 Mg/0.4 Ml Inj SUB-Q 40 mg DAILY ERINN Administration Protocol Famotidine 20 mg 10/07/20 10:00 11/11/20 09:01 Famotidine 20 Mg Tab PO 20 mg BID ERINN Administration Furosemide 40 mg 10/17/20 10:00 11/11/20 09:01 Furosemide 40 Mg Tab PO 40 mg QDAY ERINN Administration Hydralazine HCl 20 mg 10/07/20 11:49 10/17/20 07:20 Hydralazine 20 Mg/1 Ml Inj IV 20 mg Q6H PRN Administration SBP >170 Hydralazine HCl 50 mg 10/17/20 09:00 11/11/20 13:43 Hydralazine 25 Mg Tab PO 50 mg Q8HR ERINN Administration Dextrose 1,000 mls @ 75 mls/hr 10/13/20 11:00 11/11/20 08:58 D10w IV 75 mls/hr DIRECT ERINN Administration Labetalol HCl 300 mg 10/17/20 09:00 11/11/20 13:43 Labetalol 100 Mg Tab PO 300 mg TID ERINN Administration Simple Syrup 15 ml 10/05/20 11:09 Simple Syrup 15 Ml FEEDTUBE PRN PRN Hypoglycemia Simple Syrup 30 ml 10/05/20 11:09 Simple Syrup 15 Ml FEEDTUBE PRN PRN Hypoglycemia Sodium Bicarbonate 325 mg 10/05/20 11:09 11/06/20 10:35 Sodium Bicarbonate 325 Mg Tab FEEDTUBE 325 mg PRN PRN Administration For Clogged Feeding Tube Sodium Bicarbonate 1,300 mg 10/13/20 14:00 11/11/20 13:43 Sodium Bicarbonate 650 Mg Tab PO 1,300 mg TID ERINN Administration Topiramate 50 mg 10/05/20 11:00 11/11/20 09:02 Topiramate Tab 25 Mg Tab PO 50 mg Q12HR ERINN Administration Valacyclovir HCl 1,000 mg 11/09/20 12:00 11/11/20 09:01 Valacyclovir 500 Mg Tab PO 11/12/20 22:01 1,000 mg Q12HR ERINN Administration Nutrition/Malnutrition Assess - Dietary Evaluation Nutrition/Malnutrition Findings: Nutrition Notes Start: 10/04/20 11:13 Freq: Status: Active Protocol: Document 11/10/20 11:16 CW (Rec: 11/10/20 11:23 CW [id number]) Co-Sign 11/10/20 11:16 LP Nutrition Notes Initial or Follow up Reassessment Current Diagnosis Acute Kidney Injury, Respiratory Failure Other Pertinent Diagnosis C-Diff, Cardiac arrest, s/p c- sectuion and supracervial hysterectomy Current Diet Jevity 1.2 at 60 ml/hr Labs/Tests reviewed Pertinent Medications lasix D10w at 75ml/hr Height 5 ft 8 in Weight 105.3 kg [place] Body Weight (kg) 63.63 BMI 35.3 Weight change and time frame Wt change noted, pt on lasix Weight Status Morbidly Obese Subjective/Other Information FU for TF tolerance, POC. Pt remains on T-piece with TF running at goal and D10w infusing. Per chart, discussed POC with family and pending SNF placement. Per RN, pt tolerating TF. Percent of energy/protein needs met: 100%/100% Burn Absent Trauma Absent GI Symptoms None Food Allergy Yes Current % PO Negligible Minimum of two criteria No Fluid Accumulation Mild (non-severe) #1 Nutrition Diagnosis Inadequate oral intake Diagnosis Progress(for reassessment Continues documentation) Is patient on ventilator? No Is Patient Ambulatory and/or Out of Bed No REE-([facility]-confined to bed) [phone] Kcal/Kg value to use for calculation 16 Approximate Energy Requirements Using 1685 kcal/Kg Calculation Used for Recommendations Kcal/kg Additional Notes Protein needs are 68-85g (0.8- 1g/kg AdjBW 85kg) Fluid needs are 1ml/kcal Nutrition Intervention Change Diet Order: Continue Nutrition Support: Jevity 1.2 at 60ml/hr. Flush 100ml q4h. Kcal 1,782 Protein (gm) 87 Fluid (mL) 1,259 Goal #1 TF tolerance Goal #2 Meet at least 75% of energy and protein needs Anticipated Discharge Needs: Unable to determine at this time Follow-Up By: 11/17/20 Additional Comments FU for TF tolerance, POC
[2020-11-11] MEDS: ACETAMINOPHEN 325 MG/10.15 ML ORAL LIQD UNIT DOSE FEEDTUBE PRN (22:10)
[2020-11-12] MEDS: hydrALAZINE 25 MG TAB PO SCH ×3 (06:25→21:00)
[2020-11-12] MEDS: DEXTROSE 10% IN WATER 1,000 ML IV SCH ×2 (06:25→20:51)
[2020-11-12] MEDS: ACETAMINOPHEN 325 MG/10.15 ML ORAL LIQD UNIT DOSE FEEDTUBE PRN (06:30)
--- NOTE | 2020-11-12 09:20 | Progress Note ---
Assessment and Plan Assessment and plan: 30 y/o female patient with Eclampsia/help syndrome, s/p emergent section with DIC, hemorrhage, supracervical abdominal hysterectomy, acute respiratory failure , tracheostomy on T-piece with morbid obesity, s/p cardiac arrest 12/08/2019 status post CPR per ACLS, acute hypoxic brain injury Acute kidney injury improved, severe shock requiring pressors, DIC septic shock improved, history of C. difficile colitis on vancomycin. Tracheostomy on T-piece, continues to require 5 L of oxygen. --Acute hypoxic respiratory failure: Tracheostomy on T-piece , 5 L oxygen, saturating 100% Nebulizers, continue oxygen titrate O2 sats to more than 90% Pulmonary critical following COVID-19 negative C. difficile positive; Patient on contact isolation Completed treatment --Afebrile: Blood, urine, tracheal aspirate cultures New cultures negative to date Monitor off antibiotics Closely monitor --Sepsis; received antibiotics Continue to monitor off antibiotics ID following --Cardiac arrest; 10/07/2020 ,status post CPR --COVID-19 test negative; 10/08/2020 --C. difficile colitis test; positive; 10/16/2020 --Acute metabolic encephalopathy --Acute hypoxic brain injury; Supportive care, closely monitor --Acute kidney injury; vasomotor nephropathy Resolved, renal function within normal limits, closely monitor --Shock; monitor of pressors Blood pressures reasonable level --DIC; sepsis, septic shock, resolved --History of preeclampsia; / hemorrhage Status post hysterectomy --History of C. difficile colitis; completed oral vancomycin --DVT/SVT and right upper extremity Very poor prognosis, Consults recommendations noted and appreciated We will closely monitor the patient and adjust management as needed Plan of care reviewed with the patient's nurse. Brief history; 30 year old -Martiniquais female CHE 10/25/20 at 36w5d who presents with seizures in triage on 10/02/20. Pt was not able to provide history but per pt's , she presented to the hospital to return a 24 hour urine specimen for analysis. She then suddenly reported that she did not feel good. She was taken to labor and delivery and shortly after arrival, she began seizing. During this time, a code met was called because the patient became hypoxic. She was then noted to be without a pulse. Chest compressions were started immediately, and the patient was emergently taken to the operating room for delivery of the fetus. Off note, This patient has had care at [facility] with comanagement by [facility] since 11 wks complicated by ADHD, morbid obesity, generalized anxiety disorder, panic attacks, chronic narcotic use, fibromyalgia, GERD, Irritable Bowel Syndrome, Migraines, h/o endometrial ablation and ovarian vein embolization, genital herpes, insomnia, LGA fetus, nausea and vomiting, polyhydramnios, quad screen positive for Down's Syndrome, and previous x 3. She is GBS negative. , Patient tracheostomy on ventilatory support, unable to wean, continue supportive care poor prognosis 11:30: Pt brought to L&D triage for evaluation of possible labor. Pt accompanied by her spouse. Pt spouse poor historian; unable to obtain history- allergies at this time. Pt taken from registration to triage area via WC. Pt unresponsive, actively seizing with snorous respirations. custodian blood bank, Kassy, called and requesting assistance. 11:35: Multiple staff at bedside. Pt 02 sat 67% on nonrebreather, unable to read BP . Yifan Theodore CRNA, at bedside for intubation and assistance with IV insertion. INT attempt by multiple RNs unsuccessful at this time. 11:42: Pt being bagged by KORIN, 02% 79%. No pulse palpated, compressions on at this time; bharati young called and Dr. Newberry preparing OR for emergent c/s. 11:44: Continued compressions on stretcher while transporting pt to OR 1. Pt being bagged with jaw thrust manuever in place by KORIN Stringer student. 11:45: Arrival to OR 1. Dr. Newberry and Dr. Portillo present for emergent c/s. Code team arrived for continued care. patient revived and c/s done Patient has been bleeding from C/s site followed by supracervical hysterectomy for severe bleeding, Patient transfused multiple units of PRBC, Patient in DIC. Patient transferred to the ICU Hospital course; 10/03. Patient seen and examined at bedside this morning. Patient is nonresponsive and mechanically ventilated. On pressors. Labs reviewed-has leukocytosis, anemia, thrombocytopenia, ADOLPH and lactic acidosis. Started on IV antibiotics to cover possible sepsis secondary to DIC. Hematology oncology recommendations appreciated-needs additional cryoprecipitate and FFP. Monitor D-dimer, fibrinogen and frequent labs. Nephrology consulted for lactic acidosis and ADOLPH. 10/04. Remains mechanically ventilated. [place] antibiotics. Labs shows improved acidosis - lactic acid 3.5. Hb drop noted. Getting transfused 2 units PRBCs. Platelet count is ~40k. Continue to monitor labs closely. Critical care team on board. 10/05; xray reviewed, concerning for multifocal infilrate, likely underlying Pneumonia, will add ID consult to assist with management of this critically ill patient, start tube feed, closely monitor renal system 10/06: Resumed care, remains on mechanical ventilation. No active bleeding, H&H stable. Continue to monitor CBC and BMP. Continue IV antibiotic for underlying pneumonia. Follow critical care and ID recommendation. 10/07: Remains on mechanical ventilation. No active bleeding, H&H stable. Critical care following, wean off ventilation as tolerated. 10/08: Patient had another cardiac arrest last night. Remains on mechanical ventilation, update family. Continue supportive care -poor prognosis 10/09: Called patient mother and discussed about patient care and management. Answered all question to best of my knowledge and family satisfaction. Patient remains on mechanical ventilation, cardiac arrest x2 so far. Critically sick, poor prognosis 10/10: remains on mechanical ventilation. h/h stable, no active bleeding. monitor CBC/BMP 10/11: WBC trended up with diarrhea, started on vancomycin po. remains on MV, off pressor, tolerating TF 10/12: remains on MV, off pressor, tolerating TF. called family for update but unable to reach, could not leave message as it was full. cont supportive care, wean off vent as tolerated. 10/13/2020; patient is on mechanical ventilation, tolerating tube feeding. Patient has labored breathing. Neuro was consulted and recommend MRI. Patient is on Precedex. Rectal tube in place. 10/14/2020; patient is on mechanical ventilation, Precedex. Patient had fever and blood culture ordered. Patient is on IV vancomycin per ID recommendation. Neuro consulted and recommend MRI. Continue to monitor. Prognosis is guarded. 10/15/2020; patient is on mechanical ventilation, Precedex. Patient had fever and blood culture ordered. Patient is on IV vancomycin per ID recommendation. Neuro consulted and recommend MRI. Continue to monitor. Prognosis is guarded. 10/17: Remains with C.DIFF and Bactermia, Poor prognosis. No purposeful movement. MRI and EEG discussed with Intensvisit, Continue aggressive BP control. 10/18: Blood pressure better controlled MRI done 10/15 shows mild improvement in edema. We will continue to monitor mother was at bedside yesterday. Nursing documentation trach and PEG discussed with the mother including goals of care. She is still in denial about the gravity of her daughters her condition which is understandable considering her age. Continue aggressive management at this time. Await for bacteremia to clear by ID before placing PICC line. 10/19: Patient for possible PEG and Trach, ID following, repeat cultures remain negative. Poor prognosis 10/20: Pt noted to DVT and SVT in the RUE, Vascular consult and will also obtain Hematology for possible considering changing in Anticoagulation. CONTINUE TO MONITOR H/H and PLT. Family updated by [employer]ens[employer]. Heparin gtt started. Will check CBC and BMP 10/21: Continue supporive care, Diarrhea now resolving, But still with persistent Fever, May need repeat CT/AP per ID, still with profused Encephalopathy 10/22: Continue supportive care, weaning, awaiting repeat Imaging. FOLLOW Fever curve. Enoxparin restarted 10/23: Continue supportive care, wean as tolerated. 10/24; Started on CPAP trial, discussed with pulmonary, still with diarrhea. 10/25: Patients seen and examined, no clinical changes, still with diarrhea. ?meaningful recovery. 10/26: Clinically unchanged, continue CPAP trial, Will discuss with Neurology about re-evaluation, ?Need for repeat CT head. ?PRESS considering initial elevated BP, now stable. 10/27; tracheostomy on vent, weaning trials, vital signs noted, poor prognosis 10/28; unable to wean, tracheostomy on vent. Sepsis. Continue current management. Consults and recommendations noted and appreciated 10/30/2020;Patient on T-piece 5 L of oxygen not in acute distress, noncommunicative 11/02/2020; patient on T-piece 5 L of oxygen 11/03/2020; patient's fever slightly improved low-grade, continue current management, remains on T-piece with 5 L of oxygen 11/04/2020; T-max last 24 hours 100.3 F, new cultures negative to date, monitor off antibiotics Patient is off Levophed, blood pressures reasonable level, tracheostomy on T-p iece 3 to 5 L nasal cannula oxygen 11/05/2020; tracheostomy on T-piece patient remains on 5 L of nasal cannula oxygen, unresponsive severe hypoxic brain injury I called patient's mother Ms. Pamela Bassett as well as patient's spouse Mr. Danilo Dimas at [phone] unable to reach them Left voicemail on Ms. Pamela Bassettz phone and encouraged him to call back 11/06/2020; I tried to call again today Ms. Pamela Bassett to discuss patient's condition and treatment plan and update consultants recommendations and patient's prognosis., unable to reach her 11/10/2020; family conference was held by case management yesterday 11/09/2020, family decided and agreed for SNF placement 11/11/2020; patient seen and examined, clinically no change tracheostomy on 5 L of nasal cannula oxygen, hemodynamically and clinically stable for discharge To LTAC versus SNF, DC planning per case management 11/12/2020; clinically no change, continue current management, DC planning per case management possible SNF placement I will call patient's spouse and patient's mother to update on patient's condition today The high probability of a clinically significant, sudden or life threatening deterioration of the [MULTIPLE ORGAN] system(s) required my full and direct attention, intervention and personal management. The aggregate critical care time was [31] minutes. This time is in addition to time spent performing reported procedures but includes the following: [X] Data Review and interpretation [X] Patient assessment and monitoring of vital signs [X] Documentation [X] Medication orders and management History Interval history: I have seen and examined the patient at the bedside this morning in ICU Patient remains unresponsive, tracheostomy on 5 L of oxygen Not in acute distress Vital signs reviewed Patient is awaiting SNF placement Hospitalist Physical - Constitutional Vitals: Temp Pulse Resp BP Pulse Ox 98.9 F 98 H 16 143/68 100 11/12/20 07:53 11/12/20 06:30 11/12/20 06:30 11/12/20 06:30 11/12/20 08:26 General appearance: Present: no acute distress, well-nourished, obese, other (Patient is restless) - EENT Eyes: Present: PERRL, EOM intact ENT: other (Tracheostomy) - Neck Neck: Present: supple, normal ROM - Respiratory Respiratory effort: normal Respiratory: bilateral: diminished, rhonchi, negative: rales, wheezing - Cardiovascular Rhythm: regular Heart Sounds: Present: S1 & S2 - Extremities Extremities: no ischemia Extremity abnormal: edema - Abdominal General gastrointestinal: soft, non-tender, non-distended, normal bowel sounds - Integumentary Integumentary: Present: clear, warm - Psychiatric Psychiatric: other (Noncommunicative) - Neurologic Neurologic: moves all extremities, other (Unresponsive) HEART Score - HEART Score Age: < 45 Risk factors: 1-2 risk factors - Critical Actions Critical Actions: >7 pts:50-65% risk of adverse cardiac event. Early invasive measures Results - Labs CBC & Chem 7: 11/07/20 04:44 11/07/20 04:44 Labs: Laboratory Last Values WBC 10.2 K/mm3 (4.5-11.0) 11/07/20 04:44 RBC 3.88 M/mm3 (3.65-5.03) 11/07/20 04:44 Hgb 11.0 gm/dl (10.1-14.3) 11/07/20 04:44 Hgb Comment See scanned result 10/04/20 Unknown Hct 32.6 % (30.3-42.9) 11/07/20 04:44 MCV 84 fl (79-97) 11/07/20 04:44 MCH 28 pg (28-32) 11/07/20 04:44 MCHC 34 % (30-34) 11/07/20 04:44 RDW 16.6 % (13.2-15.2) H 11/07/20 04:44 Plt Count 259 K/mm3 (140-440) 11/07/20 04:44 Lymph % (Auto) 15.2 % (13.4-35.0) 11/07/20 04:44 [place] % (Auto) 13.1 % (0.0-7.3) H 11/07/20 04:44 Eos % (Auto) 2.5 % (0.0-4.3) 11/07/20 04:44 Baso % (Auto) 0.6 % (0.0-1.8) 11/07/20 04:44 Lymph # (Auto) 1.6 K/mm3 (1.2-5.4) 11/07/20 04:44 [place] # (Auto) 1.3 K/mm3 (0.0-0.8) H 11/07/20 04:44 Eos # (Auto) 0.3 K/mm3 (0.0-0.4) 11/07/20 04:44 Baso # (Auto) 0.1 K/mm3 (0.0-0.1) 11/07/20 04:44 Add Manual Diff Complete 10/29/20 07:56 Total Counted 100 10/29/20 07:56 Seg Neutrophils % 68.6 % (40.0-70.0) 11/07/20 04:44 Seg Neuts % (Manual) 80.0 % (40.0-70.0) H 10/29/20 07:56 Band Neutrophils % 2.0 % 10/15/20 05:50 Lymphocytes % (Manual) 15.0 % (13.4-35.0) 10/29/20 07:56 Reactive Lymphs % (Man) 1.0 % 10/02/20 12:18 Monocytes % (Manual) 4.0 % (0.0-7.3) 10/29/20 07:56 Eosinophils % (Manual) 1.0 % (0.0-4.3) 10/29/20 07:56 Myelocytes % 2.0 % 10/02/20 13:05 Metamyelocytes % 1.0 % 10/14/20 04:00 Nucleated RBC % Not Reportable 10/29/20 07:56 Seg Neutrophils # 7.0 K/mm3 (1.8-7.7) 11/07/20 04:44 Seg Neutrophils # Man 10.9 K/mm3 (1.8-7.7) H 10/29/20 07:56 Band Neutrophils # 0.0 K/mm3 10/29/20 07:56 Lymphocytes # (Manual) 2.0 K/mm3 (1.2-5.4) 10/29/20 07:56 Abs React Lymphs (Man) 0.0 K/mm3 10/29/20 07:56 Monocytes # (Manual) 0.5 K/mm3 (0.0-0.8) 10/29/20 07:56 Eosinophils # (Manual) 0.1 K/mm3 (0.0-0.4) 10/29/20 07:56 Basophils # (Manual) 0.0 K/mm3 (0.0-0.1) 10/29/20 07:56 Metamyelocytes # 0.0 K/mm3 10/29/20 07:56 Myelocytes # 0.0 K/mm3 10/29/20 07:56 Promyelocytes # 0.0 K/mm3 10/29/20 07:56 Blast Cells # 0.0 K/mm3 10/29/20 07:56 WBC Morphology Not Reportable 10/29/20 07:56 Hypersegmented Neuts Not Reportable 10/29/20 07:56 Hyposegmented Neuts Not Reportable 10/29/20 07:56 Hypogranular Neuts Not Reportable 10/29/20 07:56 Smudge Cells Not Reportable 10/29/20 07:56 Toxic Granulation Not Reportable 10/29/20 07:56 Toxic Vacuolation Not Reportable 10/29/20 07:56 Dohle Bodies Not Reportable 10/29/20 07:56 Pelger-Huet Anomaly Not Reportable 10/29/20 07:56 Ester Rods Not Reportable 10/29/20 07:56 Platelet Estimate Consistent w auto 10/29/20 07:56 Clumped Platelets Not Reportable 10/29/20 07:56 Plt Clumps, EDTA Not Reportable 10/29/20 07:56 Large Platelets Few 10/29/20 07:56 Giant Platelets Not Reportable 10/29/20 07:56 Platelet Satelliting Not Reportable 10/29/20 07:56 Plt Morphology Comment Not Reportable 10/29/20 07:56 RBC Morphology Not Reportable 10/29/20 07:56 Dimorphic RBCs Not Reportable 10/29/20 07:56 Polychromasia Rare 10/29/20 07:56 Hypochromasia Few 10/29/20 07:56 Poikilocytosis Not Reportable 10/29/20 07:56 Anisocytosis Not Reportable 10/29/20 07:56 Microcytosis Not Reportable 10/29/20 07:56 Macrocytosis Not Reportable 10/29/20 07:56 Spherocytes Not Reportable 10/29/20 07:56 Pappenheimer Bodies Not Reportable 10/29/20 07:56 Sickle Cells Not Reportable 10/29/20 07:56 Target Cells Few 10/29/20 07:56 Tear Drop Cells Not Reportable 10/29/20 07:56 Ovalocytes Not Reportable 10/29/20 07:56 Stomatocytes Few 10/14/20 04:00 Helmet Cells Not Reportable 10/29/20 07:56 Burk-[place] Bodies Not Reportable 10/29/20 07:56 [place] Rings Not Reportable 10/29/20 07:56 Antoine Cells Not Reportable 10/29/20 07:56 Bite Cells Not Reportable 10/29/20 07:56 Crenated Cell Not Reportable 10/29/20 07:56 Elliptocytes Not Reportable 10/29/20 07:56 Acanthocytes (Spur) Not Reportable 10/29/20 07:56 Rouleaux Not Reportable 10/29/20 07:56 Hemoglobin C Crystals Not Reportable 10/29/20 07:56 Schistocytes Not Reportable 10/29/20 07:56 Malaria parasites Not Reportable 10/29/20 07:56 Sickle Cell Solubility See scanned result 10/04/20 Unknown Hemoglobin A See scanned result 10/04/20 Unknown Hemoglobin A2 See scanned result 10/04/20 Unknown Hemoglobin A2 Prime See scanned result 10/04/20 Unknown Hemoglobin C See scanned result 10/04/20 Unknown Hemoglobin D See scanned result 10/04/20 Unknown Hemoglobin E See scanned result 10/04/20 Unknown Hgb F Diffential Stain See scanned result 10/04/20 Unknown Hemoglobin F Quant See scanned result 10/04/20 Unknown Hemoglobin G See scanned result 10/04/20 Unknown Hemoglobin S See scanned result 10/04/20 Unknown Hemoglobin [place] See scanned result 10/04/20 Unknown Hemoglobin [place] See scanned result 10/04/20 Unknown Hemoglobin Analilia See scanned result 10/04/20 Unknown Variant Hemoglobin See scanned result 10/04/20 Unknown Abnorm Hgb IEF Confirm See scanned result 10/04/20 Unknown Hemoglobin Interpret See scanned result 10/04/20 Unknown Hemoglobinopathy Note See scanned result 10/04/20 Unknown Sharad Bodies Not Reportable 10/29/20 07:56 Hem Pathologist Commnt No 10/29/20 07:56 PT 13.6 Sec. (12.2-14.9) 10/21/20 13:54 INR 1.06 (0.87-1.13) 10/21/20 13:54 APTT 31.6 Sec. (24.2-36.6) 10/03/20 00:40 Fibrinogen 336 mg/dl (211-480) 10/04/20 10:00 D-Dimer 1974.47 ng/mlDDU (0-234) H 11/11/20 13:50 ABG pH 7.459 pH Units (7.350-7.450) H 10/26/20 10:30 POC ABG pCO2 20.7 mmHg (32.0-48.0) L 10/13/20 07:18 ABG pCO2 32.4 mm Hg 10/26/20 10:30 POC ABG pO2 137.9 mmHg (83-108) H 10/13/20 07:18 ABG pO2 112.2 mm Hg (80.0-90.0) H 10/26/20 10:30 POC ABG HCO3 14.8 10/13/20 07:18 ABG HCO3 22.5 mmol/L (20.0-26.0) 10/26/20 10:30 ABG O2 Saturation 98.2 % (95.0-99.0) 10/26/20 10:30 ABG O2 Content 18.5 (0.0-44) 10/26/20 10:30 POC ABG Base Excess -6.9 10/13/20 07:18 ABG Base Excess -0.6 mmol/L (-2.0-3.0) 10/26/20 10:30 ABG Hemoglobin 13.5 gm/dl (12.0-16.0) 10/26/20 10:30 ABG Oxyhemoglobin 98.3 (94-98) H 10/13/20 07:18 ABG Carboxyhemoglobin 1.3 % (0.0-5.0) 10/26/20 10:30 ABG Methemoglobin 0.5 % (0.0-1.5) 10/26/20 10:30 ABG Sodium 135.9 mmol/L (136.0-145.0) L 10/13/20 07:18 ABG Potassium 3.7 mmol/L (3.40-4.50) 10/13/20 07:18 ABG Chloride 111.0 mmol/L (98-107) H 10/13/20 07:18 ABG Glucose 109 mg/dL (65-95) H 10/13/20 07:18 VBG pH 6.949 (7.320-7.420) L* 10/02/20 Unknown Oxyhemoglobin 96.5 % (95.0-99.0) 10/26/20 10:30 Carboxyhemoglobin 0.3 (0.5-1.5) L 10/13/20 07:18 FiO2 25 % 10/26/20 10:30 Sodium 138 mmol/L (137-145) 11/07/20 04:44 Potassium 4.4 mmol/L (3.6-5.0) 11/07/20 04:44 Chloride 100.8 mmol/L (98-107) 11/07/20 04:44 Carbon Dioxide 23 mmol/L (22-30) 11/07/20 04:44 Anion Gap 19 mmol/L 11/07/20 04:44 BUN 12 mg/dL (7-17) 11/07/20 04:44 Creatinine 0.6 mg/dL (0.6-1.2) 11/07/20 04:44 Estimated GFR > 60 ml/min 11/07/20 04:44 BUN/Creatinine Ratio 20 % 11/07/20 04:44 Glucose 103 mg/dL (65-100) H 11/07/20 04:44 POC Glucose 119 mg/dL (70-105) H 11/11/20 23:17 Random Insulin 43.2 uIU/mL (<=19.6) H 11/02/20 19:19 C-Peptide 6.23 ng/mL (0.80-3.85) H 11/02/20 19:19 Lactic Acid 1.90 mmol/L (0.7-2.0) 10/04/20 22:00 Uric Acid 7.5 mg/dL (3.5-7.6) 10/02/20 13:05 Calcium 9.2 mg/dL (8.4-10.2) 11/07/20 04:44 Ionized Calcium 4.4 mg/dL (4.8-5.6) L 10/07/20 21:00 Phosphorus 5.30 mg/dL (2.5-4.5) H 11/07/20 04:44 Magnesium 2.00 mg/dL (1.7-2.3) 11/07/20 04:44 Total Bilirubin 0.50 mg/dL (0.1-1.2) 11/04/20 05:00 AST 90 units/L (5-40) H 11/04/20 05:00 ALT 36 units/L (7-56) 11/04/20 05:00 Alkaline Phosphatase 122 units/L (35-129) 11/04/20 05:00 Lactate Dehydrogenase 769 units/L (91-180) H 10/02/20 13:05 C-Reactive Protein 0.70 mg/dL (0.00-1.30) 11/11/20 13:50 NT-Pro-B Natriuret Pep 2788 pg/mL (0-450) H 10/04/20 10:00 Total Protein 7.4 g/dL (6.3-8.2) 11/04/20 05:00 Albumin 3.8 g/dL (3.9-5) L 11/04/20 05:00 Albumin/Globulin Ratio 1.1 % 11/04/20 05:00 Procalcitonin < 0.05 ng/mL (<0.15) 11/11/20 13:50 Arterial Blood Glucose 109 mg/dL (65-95) H 10/13/20 07:18 Arterial Blood Ionized Calcium 4.6 mg/dL (4.6-5.3) 10/13/20 07:18 Urine Color Yellow (Yellow) 11/11/20 13:50 Urine Turbidity Cloudy (Clear) 11/11/20 13:50 Urine pH 6.0 (5.0-7.0) 11/11/20 13:50 Ur Specific [place] 1.013 (1.003-1.030) 11/11/20 13:50 Urine Protein 100 mg/dl mg/dL (Negative) 11/11/20 13:50 Urine Glucose (UA) Neg mg/dL (Negative) 11/11/20 13:50 Urine Ketones Neg mg/dL (Negative) 11/11/20 13:50 Urine Blood Mod (Negative) 11/11/20 13:50 Urine Nitrite Pos (Negative) 11/11/20 13:50 Urine Bilirubin Neg (Negative) 11/11/20 13:50 Urine Urobilinogen 2.0 mg/dL (<2.0) 11/11/20 13:50 Ur Leukocyte Esterase Lg (Negative) 11/11/20 13:50 Urine WBC (Auto) > 182.0 /HPF (0.0-6.0) H 11/11/20 13:50 Urine RBC (Auto) > 182.0 /HPF (0.0-6.0) 11/11/20 13:50 U Epithel Cells (Auto) 1.0 /HPF (0-13.0) 11/11/20 13:50 Urine Bacteria (Auto) 4+ /HPF (Negative) 11/11/20 13:50 Urine WBC Clumps 3+ /HPF 11/11/20 13:50 Calcium Oxalate Crystal Few 11/11/20 13:50 Urine Mucus Few /HPF 11/11/20 13:50 Vancomycin Trough 12.6 ug/mL (5.0-20.0) 10/21/20 13:54 Random Vancomycin 10.7 ug/mL (0-40.0) 10/16/20 13:09 Phenytoin 5.7 ug/mL (10.0-20.0) L 10/13/20 07:00 C. difficile Tox (PCR) Positive (Negative) 10/16/20 10:22 Coronavirus (PCR) Negative (Negative) 10/08/20 14:15 Blood Type O POSITIVE 10/02/20 12:50 Antibody Screen Negative 10/02/20 12:50 Crossmatch See Detail 10/02/20 12:50 Microbiology: Microbiology 11/06/20 13:23 Peripheral/Venous Blood Culture - Final NO GROWTH AFTER 5 DAYS 11/06/20 13:23 Peripheral/Venous Blood Culture - Final NO GROWTH AFTER 5 DAYS - Diagnostic Impressions Diagnostic Impressions: Echocardiogram 10/03/20 13:42 Transthoracic Echocardiogram Indication: S/P Cardiac Arrest R/O Cardiomyopathy BP: 133/71 Conclusions *Global left ventricular systolic function is normal. *The estimated ejection fraction is 60-65%. *There is trace of mitral regurgitation. *The right 0heart chambers are both slightly dilated. *There is mild tricuspid regurgitation. *There is mild-moderate pulmonary hypertension. *The right ventricular systolic pressure is calculated at 44 mmHg. *The study quality is technically difficult. Findings Procedure Info: The study quality is technically difficult. The study is technically limited due to patient body habitus. The study was technically limited due to the patient's inability to lay in the left lateral decubitus position. Left Ventricle: The left ventricular chamber size is normal. There is no left ventricular hypertrophy. Global left ventricular systolic function is normal. The estimated ejection fraction is 60-65%. Left Atrium: The left atrial chamber size is normal. Right Ventricle: The right ventricle is slightly dilated. Right Atrium: The right atrium is mildly dilated. Aortic Valve: The aortic valve leaflets are mildly thickened. There is no evidence of aortic regurgitation. There is no evidence of aortic stenosis. Mitral Valve: The mitral valve leaflets are mildly thickened. There is trace of mitral regurgitation. There is no evidence of mitral stenosis. Tricuspid Valve: There is mild tricuspid regurgitation. The right ventricular systolic pressure is calculated at 44 mmHg. There is evidence of mild pulmonary hypertension. Pulmonic Valve: There is trace pulmonic regurgitation. Pericardium: There is no pericardial effusion. Aorta: There is no dilatation of the ascending aorta. There is no dilatation of the aortic root. Venous: The inferior vena cava is dilated. Measurements Chambers 2D Name Value Normal Range IVSd (2D) 1 cm (0.6 - 1.1) LVPWd (2D) 1.01 cm (0.6 - 1.1) LVIDd (2D) 4.58 cm (3.7 - 5.6) LVIDs (2D) 3.17 cm (2 - 3.8) LV FS (2D) 30.93 % - EF Teichholz (2D) 58.66 % - Ao root diameter (2D) 2.94 cm (2 - 3.7) Volumes/Mass Name Value Normal Range LA ESV SP 4CH (A/L) 72.82 ml - LA ESV SP 2CH (A/L) 66.86 ml - LA ESV BP (A/L) 74.49 ml - LA ESV SP 4CH (MOD) 71.03 ml - LA ESV SP 2CH (MOD) 64.3 ml - LV EDV SP 4CH (MOD) 98.82 ml - LV ESV SP 4CH (MOD) 24.8 ml - EF SP 4CH (MOD) 74.9 % - LV EDV SP 2CH (MOD) 86.1 ml - LV ESV SP 2CH (MOD) 36.93 ml - EF SP 2CH (MOD) 57.11 % - LV EDV BP 94.4 ml - LV ESV BP 32.66 ml - BP EF (MOD) 65.4 % - Diastolic/Systolic Function Name Value Normal Range MV E-wave Vmax 1.04 m/sec - MV deceleration time 160.46 msec - MV A-wave Vmax 0.92 m/sec - MV E:A ratio 1.14 ratio - Aortic Valve Name Value Normal Range AV Vmax 2.12 m/sec - AV VTI 22.37 cm - AV peak gradient 17.95 mmHg - AV mean gradient 7.29 mmHg - LVOT diameter 2.01 cm - LVOT Vmax 1.8 m/sec - LVOT VTI 27.17 cm - LVOT peak gradient 12.91 mmHg - LVOT mean gradient 6.83 mmHg - SV LVOT 86.42 ml - ANITA (continuity Vmax) 2.7 cm2 - ANITA (continuity VTI) 3.86 cm2 - Ascending Ao 3.18 cm - Tricuspid Valve Name Value Normal Range TV E-wave Vmax 0.88 m/sec - TR Vmax 3.01 m/sec - TR peak gradient 36.27 mmHg - RAP 8 mmHg - RVSP 44 mmHg - IVC diameter 2.65 cm (1.2 - 2.3) Pulmonic Valve/Qp:Qs Name Value Normal Range PV Vmax 1.22 m/sec - PV peak gradient 5.91 mmHg - RVOT Vmax 0.87 m/sec - RVOT VTI 13.32 cm - RVOT peak gradient 3 mmHg - PV acceleration time 110.37 msec - [place]/IV: Voiding Method Indwelling Catheter IV Catheter Type [Right Foot] INT / Saline Lock IV Catheter Type [Left Forearm Peripheral IV ] IV Catheter Type [Left Wrist] INT / Saline Lock IV Catheter Type [Right Hand] INT / Saline Lock IV Catheter Type [Right INT / Saline Lock Antecubital] IV Catheter Type [Right Upper Mid-line arm] IV Catheter Type [Left Triple Lumen Cath Internal Jugular] IV Catheter Type [Left Hand] Peripheral IV IV Catheter Type [Left Peripheral IV Antecubital] Active Medications - Current Medications Current Medications: Generic Name Dose Route Start Last Admin Trade Name Freq PRN Reason Stop Dose Admin Acetaminophen 650 mg 10/05/20 16:34 11/12/20 06:30 Acetaminophen 325 Mg/10.15 Ml Oral Liqd Unit Dose FEEDTUBE 650 mg Q6H PRN Administration Non Cardiac Pain or Temp>100.5 Albuterol 2.5 mg 11/05/20 13:03 11/06/20 13:04 Albuterol 2.5 Mg/3 Ml Nebu IH 2.5 mg Q4HRT PRN Administration Shortness Of Breath Lipase/Protease/Amylase 1 each 10/05/20 11:09 Lipase 10,500/Protease 25,000/Amylase 43,750 (Units) Dr Barakat FEEDTUBE PRN PRN For Clogged Feeding Tube Enoxaparin Sodium 40 mg 10/22/20 10:00 11/11/20 09:01 Enoxaparin 40 Mg/0.4 Ml Inj SUB-Q 40 mg DAILY ERINN Administration Protocol Famotidine 20 mg 10/07/20 10:00 11/11/20 22:11 Famotidine 20 Mg Tab PO 20 mg BID ERINN Administration Furosemide 40 mg 10/17/20 10:00 11/11/20 09:01 Furosemide 40 Mg Tab PO 40 mg QDAY ERINN Administration Hydralazine HCl 20 mg 10/07/20 11:49 10/17/20 07:20 Hydralazine 20 Mg/1 Ml Inj IV 20 mg Q6H PRN Administration SBP >170 Hydralazine HCl 50 mg 10/17/20 09:00 11/12/20 06:25 Hydralazine 25 Mg Tab PO 50 mg Q8HR ERINN Administration Dextrose 1,000 mls @ 75 mls/hr 10/13/20 11:00 11/12/20 06:25 D10w IV 75 mls/hr DIRECT ERINN Administration Labetalol HCl 300 mg 10/17/20 09:00 11/11/20 19:24 Labetalol 100 Mg Tab PO 300 mg TID ERINN Administration Simple Syrup 15 ml 10/05/20 11:09 Simple Syrup 15 Ml FEEDTUBE PRN PRN Hypoglycemia Simple Syrup 30 ml 10/05/20 11:09 Simple Syrup 15 Ml FEEDTUBE PRN PRN Hypoglycemia Sodium Bicarbonate 325 mg 10/05/20 11:09 11/06/20 10:35 Sodium Bicarbonate 325 Mg Tab FEEDTUBE 325 mg PRN PRN Administration For Clogged Feeding Tube Sodium Bicarbonate 1,300 mg 10/13/20 14:00 11/11/20 19:24 Sodium Bicarbonate 650 Mg Tab PO 1,300 mg TID ERINN Administration Topiramate 50 mg 10/05/20 11:00 11/11/20 22:12 Topiramate Tab 25 Mg Tab PO 50 mg Q12HR ERINN Administration Valacyclovir HCl 1,000 mg 11/09/20 12:00 11/11/20 22:11 Valacyclovir 500 Mg Tab PO 11/12/20 22:01 1,000 mg Q12HR ERINN Administration Nutrition/Malnutrition Assess - Dietary Evaluation Nutrition/Malnutrition Findings: Nutrition Notes Start: 10/04/20 11:13 Freq: Status: Active Protocol: Document 11/10/20 11:16 CW (Rec: 11/10/20 11:23 CW [id number]) Co-Sign 11/10/20 11:16 LP Nutrition Notes Initial or Follow up Reassessment Current Diagnosis Acute Kidney Injury, Respiratory Failure Other Pertinent Diagnosis C-Diff, Cardiac arrest, s/p c- sectuion and supracervial hysterectomy Current Diet Jevity 1.2 at 60 ml/hr Labs/Tests reviewed Pertinent Medications lasix D10w at 75ml/hr Height 5 ft 8 in Weight 105.3 kg [facility] Body Weight (kg) 63.63 BMI 35.3 Weight change and time frame Wt change noted, pt on lasix Weight Status Morbidly Obese Subjective/Other Information FU for TF tolerance, POC. Pt remains on T-piece with TF running at goal and D10w infusing. Per chart, discussed POC with family and pending SNF placement. Per RN, pt tolerating TF. Percent of energy/protein needs met: 100%/100% Burn Absent Trauma Absent GI Symptoms None Food Allergy Yes Current % PO Negligible Minimum of two criteria No Fluid Accumulation Mild (non-severe) #1 Nutrition Diagnosis Inadequate oral intake Diagnosis Progress(for reassessment Continues documentation) Is patient on ventilator? No Is Patient Ambulatory and/or Out of Bed No REE-([place]-confined to bed) 2175.612 Kcal/Kg value to use for calculation 16 Approximate Energy Requirements Using 1685 kcal/Kg Calculation Used for Recommendations Kcal/kg Additional Notes Protein needs are 68-85g (0.8- 1g/kg AdjBW 85kg) Fluid needs are 1ml/kcal Nutrition Intervention Change Diet Order: Continue Nutrition Support: Jevity 1.2 at 60ml/hr. Flush 100ml q4h. Kcal 1,782 Protein (gm) 87 Fluid (mL) 1,259 Goal #1 TF tolerance Goal #2 Meet at least 75% of energy and protein needs Anticipated Discharge Needs: Unable to determine at this time Follow-Up By: 11/17/20 Additional Comments FU for TF tolerance, POC
--- NOTE | 2020-11-12 09:53 | Progress Note ---
Assessment and Plan A: POD#41 s/p repeat section at 36 wks secondary to Eclampsia and Cardiac Arrest with Resuscitation POD#41 s/p supracervical abdominal hysterectomy secondary to Uterine Atony, Hemorrhage and Disseminated Intravascular Coagulation (DIC) s/p multiple transfusions of blood products POD #22 s/p Percutaneous Tracheostomy, Fiberoptic Bronchoscopy, PEG tube placement Right Upper Extremity superficial and deep vein thrombosis on Lovenox Hypoglycemia Herpetic outbreak -Status post cardiac arrest 10/07/2020 requiring reintubation. -Shock, DIC: Secondary to hemorrhage-stable -Sepsis: followed by ID, abx/imaging recommendations noted -Acute kidney injury: resolved, labs stable -Acute respiratory failure: off vent presently -Preeclampsia: s/p Magnesium P: Continue supportive care per Hospitalist and Leaf Sorter recommendations All road consultant reports reviewed and appreciated Subjective - Subjective Date of service: 11/12/20 Principal diagnosis: Eclampsia/HELLP Syndrome, ADOLPH, DIC; s/p , s/p supracervical hyst Interval history: Late entry. All road consultant recommendations reviewed and greatly appreciated. 30y/o POD #37 s/p emergent section and supracervical hysterectomy for eclampsia and DIC. POD#18 s/p Percutaneous tracheostomy, Fiberoptic bronchoscopy, PEG tube placement. Currently on Lovenox for SVT and DVT in right upper extremity. Currently being treated for severe herpetic outbreak. T max 100.1 at midnight. Pt remains unresponsive to calling her name, with spontaneous blinking of eyes and movement of both lower extremities this morning. Patient reports: no dizzy ambulation, no ambulating normally Objective - Vital Signs Latest vital signs: Vital Signs Temp Pulse Resp BP Pulse Ox Pulse Ox 11/12/20 08:26 100 11/12/20 08:00 100 11/12/20 07:53 98.9 F 11/12/20 06:30 98 H 16 143/68 100 11/12/20 06:25 100 H 153/62 11/12/20 06:00 98 H 16 153/62 100 11/12/20 05:30 77 18 143/62 100 11/12/20 05:10 99 11/12/20 05:00 98 H 17 137/57 100 11/12/20 04:31 82 13 137/61 100 11/12/20 04:01 85 15 150/60 100 11/12/20 03:45 98.5 F 11/12/20 03:36 82 11/12/20 03:30 89 20 126/70 100 11/12/20 03:00 98 H 11 L 132/80 100 11/12/20 02:30 96 H 13 144/73 100 11/12/20 02:00 95 H 13 144/67 100 11/12/20 01:30 94 H 20 147/66 100 11/12/20 01:01 104 H 30 H 130/46 100 11/12/20 00:31 106 H 14 130/46 100 11/12/20 00:07 105 H 11/12/20 00:00 107 H 14 132/45 99 11/11/20 23:47 98.7 F 11/11/20 23:30 112 H 15 133/60 98 11/11/20 23:10 16 11/11/20 23:05 101 H 13 122/42 100 11/11/20 23:01 90 12 122/42 99 11/11/20 22:43 90 20 133/60 100 11/11/20 22:30 100 H 14 133/60 100 11/11/20 22:11 100 H 112/49 11/11/20 22:10 17 11/11/20 22:00 84 14 112/49 99 11/11/20 21:30 86 11 L 120/51 100 11/11/20 21:00 89 25 H 127/54 100 11/11/20 20:31 89 12 118/54 100 11/11/20 20:00 99.2 F 94 H 27 H 125/51 100 11/11/20 19:58 100 11/11/20 19:53 98 H 11/11/20 19:30 112 H 31 H 162/81 100 11/11/20 19:24 115 H 156/83 11/11/20 19:00 113 H 18 156/83 100 11/11/20 18:30 113 H 22 141/97 100 11/11/20 18:00 116 H 48 H 159/87 100 11/11/20 17:31 117 H 34 H 156/106 100 11/11/20 17:00 103 H 34 H 129/67 100 11/11/20 16:35 99 11/11/20 16:30 103 H 35 H 121/57 100 11/11/20 16:00 99.2 F 102 H 33 H 119/66 100 11/11/20 15:30 89 23 122/59 100 11/11/20 15:01 98 H 15 126/60 100 11/11/20 14:30 101 H 17 142/64 98 11/11/20 14:01 102 H 26 H 139/73 100 11/11/20 13:43 96 H 139/76 11/11/20 13:30 90 20 139/76 100 11/11/20 13:01 99 H 22 141/66 99 11/11/20 12:30 94 H 21 162/85 100 11/11/20 12:01 96 H 21 145/61 100 11/11/20 12:00 99.2 F 96 H 11/11/20 11:31 96 H 15 144/57 99 11/11/20 11:01 89 20 139/61 100 11/11/20 10:30 85 19 125/65 100 11/11/20 10:00 82 14 125/59 99 Intake and Output 11/11/20 11/12/20 11/12/20 22:59 06:59 14:59 Intake Total 1463.75 1780 Output Total 600 1700 Balance 863.75 80 Intake: IV 783.75 1000 D10w 1,000 ml @ 75 mls/hr 783.75 1000 IV DIRECT [facility] Rx#: [id number] Intake, Free Water 100 Tube Feeding 480 480 Other 100 300 Output: Urine 600 1700 Indwelling Catheter 600 1700 Other: Total, Intake Amount 60 160 Total, Output Amount 600 350 Voiding Method Indwelling Catheter Indwelling Catheter # Bowel Movements 1 Weight 100.5 kg - Exam Breasts: Present: deferred Abdomen: Present: soft (obese) Uterus: Present: normal (gravid ) Extremities: Present: edema Incision: Present: intact - Labs Labs: Abnormal lab results 11/11/20 11/11/20 11/11/20 Range/Units 11:56 13:50 13:50 D-Dimer 1974.47 H (0-234) ng/mlDDU POC Glucose 109 H (70-105) mg/dL Urine WBC (Auto) > 182.0 H (0.0-6.0) /HPF 11/11/20 11/11/20 Range/Units 15:50 23:17 D-Dimer (0-234) ng/mlDDU POC Glucose 107 H 119 H (70-105) mg/dL Urine WBC (Auto) (0.0-6.0) /HPF
[2020-11-12] MEDS: TOPIRAMATE TAB 25 MG TAB PO SCH ×2 (10:47→21:01)
[2020-11-12] MEDS: valACYclovir 500 MG TAB PO SCH ×2 (10:47→21:00)
[2020-11-12] MEDS: FAMOTIDINE 20 MG TAB PO SCH ×2 (10:47→21:00)
[2020-11-12] MEDS: FUROSEMIDE 40 MG TAB PO SCH (10:47)
[2020-11-12] MEDS: ENOXAPARIN 40 MG/0.4 ML INJ SUB-Q SCH (10:48)
--- NOTE | 2020-11-12 10:48 | Progress Note ---
Assessment and Plan Cultures: 10/05/2020 Blood culture: no growth 10/11/2020 blood culture: No growth 10/11/2020 tracheal aspirate: Usual respiratory jaylan 10/14/2020 blood culture: Enterobacter, coag negative staph. Sensitivities in "scanned reports" 10/15/2020 blood culture: negative 11/02/2020 blood cultures no growth 11/06/2020 blood culture no growth today A/P: 30-year-old female with GERD, hypertension, seizure disorder was admitted to the hospital at 36 weeks with seizures. She became hypoxic and pulseless requiring CPR. Following emergent section, patient developed hemorrhage, DIC. She has been admitted to ICU, remains on the vent: #Intermittent fever: Initially due to Enterobacter bacteremia. Persistent fever of unclear etiology. Likely due to new CAUTI. Repeat CRP and procalcitonin both low. #Extensive herpes genitalis: Perianal and vaginal #Recent Enterobacter bacteremia: Treated #Status post arrest 10/07/2020: Apparently had a brief code due to ?ET tube clot/plugging. #Initial shock, DIC/persistent fever: Secondary to hemorrhage, ?possible sepsis. Possible pneumonia versus fluid overload. ?Central fever v/s from VTE. Noted diarrhea ? Cdiff + #Acute kidney injury: resolved #Acute respiratory failure: remains on the vent. now has trach #Transaminitis: ?HELLP. #Preeclampsia # hemorrhage: Status post , status post supracervical hysterectomy. #Encephalopathy post cardiac arrest #C. difficile: Completed PO vancomycin #Right axillary acute DVT/elevated D-dimer improved Recs: -Remove Hamlin catheter, UA consistent with UTI -Follow-up urine cultures -Start ceftriaxone for 3 days for UTI -Continue p.o. Valtrex 1 g twice daily total 7 days -monitor fever MD [facility] ([facility]) Office [phone] Subjective Date of service: 11/12/20 Principal diagnosis: Eclampsia/HELLP Syndrome, ADOLPH, DIC; s/p , s/p supracervical hyst Interval history: No fever for 24 hours. Remains unresponsive on T-piece. Objective - Exam Narrative Exam: General appearance: Alert does not follow commands Eyes: anicteric sclerae, moist conjunctivae; no lid-lag; PERRLA HENT: Normocephalic, Atraumatic; normal external ears, nares open, oropharynx limited rectal tube in place Neck: supple, tracheal midline, no JVD Lungs: Coarse breath sounds bilaterally CV: RRR no murmur Abdomen: Soft, wound with dressing, taking place Extremities: no edema, no cyanosis Skin: Extensive clusters of blisters perianal, vaginal area improving Psych: No agitated Neuro: Alert does not follow commands - Constitutional Vitals: Vital Signs Temp Pulse Resp BP Pulse Ox 98.9 F 98 H 16 143/68 100 11/12/20 07:53 11/12/20 06:30 11/12/20 06:30 11/12/20 06:30 11/12/20 08:26 Temperature -Last 24 Hours Temperature 98.9 F Temperature 98.5 F Temperature 98.7 F Temperature 99.2 F Temperature 99.2 F Temperature 99.2 F - Labs CBC & Chem 7: 11/07/20 04:44 11/07/20 04:44 Labs: Abnormal lab results 11/11/20 11/11/20 11/11/20 Range/Units 11:56 13:50 13:50 D-Dimer 1974.47 H (0-234) ng/mlDDU POC Glucose 109 H (70-105) mg/dL Urine WBC (Auto) > 182.0 H (0.0-6.0) /HPF 11/11/20 11/11/20 Range/Units 15:50 23:17 D-Dimer (0-234) ng/mlDDU POC Glucose 107 H 119 H (70-105) mg/dL Urine WBC (Auto) (0.0-6.0) /HPF
[2020-11-12] MEDS: SODIUM BICARBONATE 650 MG TAB PO SCH ×3 (10:49→20:57)
--- NOTE | 2020-11-12 12:34 | Progress Note ---
Assessment and Plan 30 y/o female with Eclampsia, s/p emergent section with DIC, acute respiratory failure and worsening renal function. 11/12/20: Continue D10. I have reached out to an endocrine physician from an outside hospital who is willing to help me with the work up and possible help with diagnosis. 11/11/20: Call labs today about proinuslin. Signed letter for family today. Needs endocrine consult but not available here. 11/10/20: If proinsulin not back by tomorrow will call lab. Once I have all info, will see if I can obtain and endocrine consult via phone to discuss case. Continue supplemental oxygen. Needs PT 11/09/20: Follow up Proinsulin levels. No endocrine consult available here, but will do more research to see if we can find out why she remains D10 dependent. Pulm status is stable. Continue T-piece. Not a candidate for floor given D10 requirement. 11/06/20: No new recs. Will continue to check for outside lab results over the weekend. 11/05/20: Awaiting outside labs to work up hypoglycemia. Will add some PRN a lbuterol nebs to see if this will help to thin out her secretions. 11/04/20: No changes. No new recs. Awaiting send out labs to help figure out hypoglycemia. 11/03/20: Continue D10. Await send out labs. 11/02/20: Called lab today to ask how to order these send out labs. Continue D10 along with feeds for now. Stopped robinol and no further reports of increased thickness of secretions. given D10 requirement, do not feel comfortable with transition to the floor. 11/01/20: Will stop Robinol as this may be making secretions to thick. Huge risk for mucous plugging given mental state. Continue D10 and waiting on labs from yesterday. LFT's repeated and AST elevated along with alk phos. Both of these were elevated on admission, then resolved and now are elevated again. In current clinical state, not sure what to make of those numbers. They do not help with trying to figure out hypoglycemia and persistent need for D10. Continue IMCU care. 10/31/20: Will order midline for IV team vs peripheral IV's (multiple). Needs access for d10 as we have not been able to figure out why she is so hypoglyemic. Will measure serum insulin levels and C-peptide levels, as well proinsulin. All of these labs are sendouts so will have to call down to ask how to order as they are not coming up in [facility]. Given her requirement for supplemental IV sugar, not a candidate for floor transfer. 10/30/20: Continue step down monitoring for now. If does well the next 24-36 hours, then will consider floor transfer. Really needs to continue PT with PROM. Will speak with CM about options for here now that critical needs are becoming minimal. 10/29/20: Off vent now for 24 hours. Tolerating T-Piece. Will transition to step down for a few days. If does well there, consider transition to floor. Continue PT. Guarded prognosis. 10/28/20: Daily T-piece trials for as long as tolerated. Attempt to push further daily. OT does not do passive range of motion. Per PT note will do passive range of motion with patient. Guarded prognosis. Hoping to wean off vent and transition to floor. 10/27/20: Continue daily T-piece trials for as long as tolerated. Ok with resting on either PSV or full rate if needed at night but need to strengthen her respiratory muscles. PT/OT if possible. Will transition to step down prior to going to floor to insure stability. 10/26/20: Will obtain ABG today. If good, will attempt on T-piece later. Continue PT/OT. Will speak with CM about possibility of LTACH or nursing facility that can take trached patients. 10/23/20: Daily PSV trials for as long as patient will tolerate. Needs PT/OT consult for passive range of motion. 10/22/20: Will start prolonged PSV trials. Attempt to wean from vent and then transition to floor to see if mental status improves. Continue tube feeds. 10/21/20: Trach and peg placed. No sedation. Restart Lovenox for Upper Ext DVT. Restart feeds when surgery states ok to use PEG. C. Diff treatment per ID. Guarded prognosis. Will be a care home wean. Hopeful to wean off vent at least and then can transfer to floor. 10/20/20: NPO after midnight. DVT study just read from 10/14 on yesterday showing upper ext DVT. Started on Lovenox but need to hold therapy until after surgery. could be source of fevers. No sedation. 10/19/20: Stable BP. Will meet/talk with family at noon over the phone with myself and case management. Need to discuss goals of care and what next steps would be. Patient would need trach and peg and transfer to LTACH if family ok with this. Follow up speciation of GNR's in blood. Has been on Cefepime. Continues therapy for C. Diff. Guarded prognosis. Continue daily PSV trials but not ready for extubation secondary to mental state. 10/18/20: Blood pressure is much better with the addition of meds started on yesterday. Need to have family meeting jesica in regards to goals of care. Continue Daily PSV trials but not ready for extubation. Continue therapy for C. Diff per ID. 10/17/20: CT scan was of no help in regards to fevers. C. Diff is positive and BP now is more uncontrolled despite increasing labetalol. Today will increase to 300 TID. Added TID Hydralazine and added PO lasix given her mild pulmonary htn seen on echo. Spoke with mother over the phone and she requests to come see the patient. Given current circumstances, will allow her to come briefly today and then will speak with her at the bedside. No neurology is available at the time and suspect these will be the majority of her questions. Tolerated PSV briefly yesterday and will do again today but not for extended periods as given her mental state she is not a candidate for extubation. I will also ask the mother about intermediate teacher care (trach and peg) when she comes today. Overall prognosis is guarded to poor. If oral meds cannot regulate blood pressure, may need Cardene drip. Continue therapy for C. Diff per ID. Subjective Date of service: 11/12/20 Principal diagnosis: Eclampsia/HELLP Syndrome, ADOLPH, DIC; s/p , s/p supracervical hyst Interval history: No acute events. Pulm status still the same. Blood sugars remain borderline. Objective Vital Signs - 12hr 11/12/20 11/12/20 11/12/20 00:31 01:01 01:30 Temperature Pulse Rate 106 H 104 H 94 H Respiratory 14 30 H 20 Rate Blood Pressure 130/46 130/46 147/66 O2 Sat by Pulse 100 100 100 Oximetry O2 Sat by Pulse Oximetry [ Assessment] 11/12/20 11/12/20 11/12/20 02:00 02:30 03:00 Temperature Pulse Rate 95 H 96 H 98 H Respiratory 13 13 11 L Rate Blood Pressure 144/67 144/73 132/80 O2 Sat by Pulse 100 100 100 Oximetry O2 Sat by Pulse Oximetry [ Assessment] 11/12/20 11/12/20 11/12/20 03:30 03:36 03:45 Temperature 98.5 F Pulse Rate 89 82 Respiratory 20 Rate Blood Pressure 126/70 O2 Sat by Pulse 100 Oximetry O2 Sat by Pulse Oximetry [ Assessment] 11/12/20 11/12/20 11/12/20 04:01 04:31 05:00 Temperature Pulse Rate 85 82 98 H Respiratory 15 13 17 Rate Blood Pressure 150/60 137/61 137/57 O2 Sat by Pulse 100 100 100 Oximetry O2 Sat by Pulse Oximetry [ Assessment] 11/12/20 11/12/20 11/12/20 05:10 05:30 06:00 Temperature Pulse Rate 77 98 H Respiratory 18 16 Rate Blood Pressure 143/62 153/62 O2 Sat by Pulse 100 100 Oximetry O2 Sat by Pulse 99 Oximetry [ Assessment] 11/12/20 11/12/20 11/12/20 06:25 06:30 07:53 Temperature 98.9 F Pulse Rate 100 H 98 H Respiratory 16 Rate Blood Pressure 153/62 143/68 O2 Sat by Pulse 100 Oximetry O2 Sat by Pulse Oximetry [ Assessment] 11/12/20 11/12/20 11/12/20 08:00 08:26 12:00 Temperature 99.0 F Pulse Rate Respiratory Rate Blood Pressure O2 Sat by Pulse 100 Oximetry O2 Sat by Pulse 100 Oximetry [ Assessment] Constitutional: comatose, other (s/p trach) Eyes: non-icteric ENT: oropharynx moist Neck: other (large in cirumference) Effort: normal Ascultation: Bilateral: clear, diminished breath sounds, rhonchi, other (coarse BS bilaterally) Percussion: Bilateral: not dull Cardiovascular: regular rate and rhythm, other (no mrg) Gastrointestinal: normoactive bowel sounds, soft Extremities: no cyanosis, pink and warm Neurologic: other (unresponsive, not following commands, not tracking) Psychiatric: other (unable to assess) CBC and BMP: 11/07/20 04:44 11/07/20 04:44 ABG, PT/INR, D-dimer: ABG ABG pH 7.459 pH Units (7.350-7.450) H 10/26/20 10:30 POC ABG pCO2 20.7 mmHg (32.0-48.0) L 10/13/20 07:18 ABG pCO2 32.4 mm Hg 10/26/20 10:30 POC ABG pO2 137.9 mmHg (83-108) H 10/13/20 07:18 ABG pO2 112.2 mm Hg (80.0-90.0) H 10/26/20 10:30 POC ABG HCO3 14.8 10/13/20 07:18 ABG O2 Saturation 98.2 % (95.0-99.0) 10/26/20 10:30 PT/INR, D-dimer PT 13.6 Sec. (12.2-14.9) 10/21/20 13:54 INR 1.06 (0.87-1.13) 10/21/20 13:54 D-Dimer 1974.47 ng/mlDDU (0-234) H 11/11/20 13:50 Abnormal lab findings: Abnormal Labs 10/02/20 10/02/20 10/02/20 12:03 12:18 12:18 WBC 14.9 H RBC Hgb 9.1 L Hct MCV MCH 22 L MCHC 28 L RDW 17.6 H Plt Count 102 L Lymph % (Auto) [place] % (Auto) Lymph # (Auto) [place] # (Auto) Baso # (Auto) Seg Neutrophils % Seg Neuts % (Manual) 36.0 L Lymphocytes % (Manual) 49.0 H Monocytes % (Manual) Nucleated RBC % 6.0 H Seg Neutrophils # Seg Neutrophils # Man Lymphocytes # (Manual) 7.3 H Monocytes # (Manual) PT INR APTT Fibrinogen D-Dimer ABG pH POC ABG pCO2 POC ABG pO2 ABG pO2 ABG HCO3 ABG Base Excess ABG Hemoglobin ABG Oxyhemoglobin ABG Sodium ABG Potassium ABG Chloride ABG Glucose VBG pH Oxyhemoglobin Carboxyhemoglobin Sodium 134 L Potassium Chloride Carbon Dioxide 12 L BUN 6 L Creatinine Glucose 390 H POC Glucose 451 H Random Insulin C-Peptide Lactic Acid Calcium Ionized Calcium Phosphorus Magnesium AST 135 H ALT 85 H Alkaline Phosphatase 172 H Lactate Dehydrogenase 641 H NT-Pro-B Natriuret Pep Total Protein 5.4 L Albumin 2.3 L Arterial Blood Glucose Arterial Blood Ionized Calcium Urine WBC (Auto) Vancomycin Trough Phenytoin Crossmatch 10/02/20 10/02/20 10/02/20 12:50 13:05 13:05 WBC 38.6 H RBC Hgb 8.9 L Hct 29.0 L MCV 73 L MCH 22 L MCHC RDW 17.2 H Plt Count Lymph % (Auto) [place] % (Auto) Lymph # (Auto) [place] # (Auto) Baso # (Auto) Seg Neutrophils % Seg Neuts % (Manual) Lymphocytes % (Manual) Monocytes % (Manual) Nucleated RBC % 2.0 H Seg Neutrophils # Seg Neutrophils # Man 20.1 H Lymphocytes # (Manual) 10.4 H Monocytes # (Manual) 2.3 H PT INR APTT Fibrinogen D-Dimer ABG pH POC ABG pCO2 POC ABG pO2 ABG pO2 ABG HCO3 ABG Base Excess ABG Hemoglobin ABG Oxyhemoglobin ABG Sodium ABG Potassium ABG Chloride ABG Glucose VBG pH Oxyhemoglobin Carboxyhemoglobin Sodium Potassium Chloride Carbon Dioxide BUN Creatinine Glucose POC Glucose Random Insulin C-Peptide Lactic Acid Calcium Ionized Calcium Phosphorus Magnesium AST 184 H ALT 113 H Alkaline Phosphatase Lactate Dehydrogenase 769 H NT-Pro-B Natriuret Pep Total Protein Albumin Arterial Blood Glucose Arterial Blood Ionized Calcium Urine WBC (Auto) Vancomycin Trough Phenytoin Crossmatch See Detail 10/02/20 10/02/20 10/02/20 16:25 16:35 16:35 WBC RBC Hgb Hct MCV MCH MCHC RDW Plt Count Lymph % (Auto) [place] % (Auto) Lymph # (Auto) [place] # (Auto) Baso # (Auto) Seg Neutrophils % Seg Neuts % (Manual) Lymphocytes % (Manual) Monocytes % (Manual) Nucleated RBC % Seg Neutrophils # Seg Neutrophils # Man Lymphocytes # (Manual) Monocytes # (Manual) PT INR APTT Fibrinogen D-Dimer ABG pH 7.031 L* POC ABG pCO2 POC ABG pO2 ABG pO2 116.8 H ABG HCO3 12.7 L ABG Base Excess -16.9 L ABG Hemoglobin 7.8 L ABG Oxyhemoglobin ABG Sodium ABG Potassium ABG Chloride ABG Glucose VBG pH Oxyhemoglobin 94.9 L Carboxyhemoglobin Sodium Potassium Chloride Carbon Dioxide BUN Creatinine Glucose 403 H POC Glucose Random Insulin C-Peptide Lactic Acid 11.40 H* Calcium 6.3 L D Ionized Calcium Phosphorus Magnesium AST 70 H ALT Alkaline Phosphatase Lactate Dehydrogenase NT-Pro-B Natriuret Pep Total Protein 1.9 L D Albumin 1.2 L Arterial Blood Glucose Arterial Blood Ionized Calcium Urine WBC (Auto) Vancomycin Trough Phenytoin Crossmatch 10/02/20 10/02/20 10/02/20 18:18 18:18 22:30 WBC 11.5 H RBC 2.06 L Hgb 5.5 L* D Hct 17.3 L* D MCV MCH 27 L MCHC RDW 19.5 H Plt Count 60 L Lymph % (Auto) [place] % (Auto) Lymph # (Auto) [place] # (Auto) Baso # (Auto) Seg Neutrophils % Seg Neuts % (Manual) Lymphocytes % (Manual) 8.0 L Monocytes % (Manual) 8.0 H Nucleated RBC % 8.0 H Seg Neutrophils # Seg Neutrophils # Man Lymphocytes # (Manual) 0.9 L Monocytes # (Manual) 0.9 H PT 37.1 H INR 3.71 H APTT 135.8 H* Fibrinogen D-Dimer ABG pH 7.067 L* POC ABG pCO2 POC ABG pO2 ABG pO2 183.0 H ABG HCO3 14.1 L ABG Base Excess -15.1 L ABG Hemoglobin 7.7 L ABG Oxyhemoglobin ABG Sodium ABG Potassium ABG Chloride ABG Glucose VBG pH Oxyhemoglobin Carboxyhemoglobin Sodium Potassium Chloride Carbon Dioxide BUN Creatinine Glucose POC Glucose Random Insulin C-Peptide Lactic Acid Calcium Ionized Calcium Phosphorus Magnesium AST ALT Alkaline Phosphatase Lactate Dehydrogenase NT-Pro-B Natriuret Pep Total Protein Albumin Arterial Blood Glucose Arterial Blood Ionized Calcium Urine WBC (Auto) Vancomycin Trough Phenytoin Crossmatch 10/02/20 10/02/20 10/03/20 Unknown Unknown 00:01 WBC RBC Hgb Hct MCV MCH MCHC RDW Plt Count Lymph % (Auto) [place] % (Auto) Lymph # (Auto) [place] # (Auto) Baso # (Auto) Seg Neutrophils % Seg Neuts % (Manual) Lymphocytes % (Manual) Monocytes % (Manual) Nucleated RBC % Seg Neutrophils # Seg Neutrophils # Man Lymphocytes # (Manual) Monocytes # (Manual) PT 61.1 H INR 6.92 H* APTT 158.7 H* Fibrinogen < 60 L* D-Dimer > 20330 H ABG pH POC ABG pCO2 POC ABG pO2 ABG pO2 ABG HCO3 ABG Base Excess ABG Hemoglobin ABG Oxyhemoglobin ABG Sodium ABG Potassium ABG Chloride ABG Glucose VBG pH 6.949 L* Oxyhemoglobin Carboxyhemoglobin Sodium Potassium Chloride Carbon Dioxide BUN Creatinine Glucose POC Glucose 196 H Random Insulin C-Peptide Lactic Acid Calcium Ionized Calcium Phosphorus Magnesium AST ALT Alkaline Phosphatase Lactate Dehydrogenase NT-Pro-B Natriuret Pep Total Protein Albumin Arterial Blood Glucose Arterial Blood Ionized Calcium Urine WBC (Auto) Vancomycin Trough Phenytoin Crossmatch 10/03/20 10/03/20 10/03/20 00:40 00:40 00:40 WBC RBC Hgb Hct MCV MCH MCHC RDW Plt Count Lymph % (Auto) [place] % (Auto) Lymph # (Auto) [place] # (Auto) Baso # (Auto) Seg Neutrophils % Seg Neuts % (Manual) Lymphocytes % (Manual) Monocytes % (Manual) Nucleated RBC % Seg Neutrophils # Seg Neutrophils # Man Lymphocytes # (Manual) Monocytes # (Manual) PT 15.1 H INR 1.21 H APTT Fibrinogen D-Dimer ABG pH POC ABG pCO2 POC ABG pO2 ABG pO2 ABG HCO3 ABG Base Excess ABG Hemoglobin ABG Oxyhemoglobin ABG Sodium ABG Potassium ABG Chloride ABG Glucose VBG pH Oxyhemoglobin Carboxyhemoglobin Sodium 136 L Potassium Chloride Carbon Dioxide BUN Creatinine 1.6 H D Glucose 106 H POC Glucose Random Insulin C-Peptide Lactic Acid 5.60 H* Calcium 6.5 L Ionized Calcium Phosphorus Magnesium AST 232 H ALT 104 H Alkaline Phosphatase Lactate Dehydrogenase NT-Pro-B Natriuret Pep Total Protein 3.9 L D Albumin 2.4 L Arterial Blood Glucose Arterial Blood Ionized Calcium Urine WBC (Auto) Vancomycin Trough Phenytoin Crossmatch 10/03/20 10/03/20 10/03/20 02:08 02:08 02:08 WBC 17.6 H RBC 3.27 L Hgb 9.9 L D Hct 29.9 L D MCV MCH MCHC RDW 16.5 H Plt Count 75 L Lymph % (Auto) [place] % (Auto) Lymph # (Auto) [place] # (Auto) Baso # (Auto) Seg Neutrophils % Seg Neuts % (Manual) 76.0 H Lymphocytes % (Manual) Monocytes % (Manual) Nucleated RBC % 8.0 H Seg Neutrophils # Seg Neutrophils # Man 13.4 H Lymphocytes # (Manual) Monocytes # (Manual) PT INR APTT Fibrinogen D-Dimer ABG pH POC ABG pCO2 POC ABG pO2 ABG pO2 ABG HCO3 ABG Base Excess ABG Hemoglobin ABG Oxyhemoglobin ABG Sodium ABG Potassium ABG Chloride ABG Glucose VBG pH Oxyhemoglobin Carboxyhemoglobin Sodium Potassium Chloride Carbon Dioxide 19 L BUN Creatinine 1.4 H Glucose 306 H POC Glucose Random Insulin C-Peptide Lactic Acid 10.50 H* Calcium 6.4 L Ionized Calcium Phosphorus Magnesium AST ALT Alkaline Phosphatase Lactate Dehydrogenase NT-Pro-B Natriuret Pep Total Protein Albumin Arterial Blood Glucose Arterial Blood Ionized Calcium Urine WBC (Auto) Vancomycin Trough Phenytoin Crossmatch 10/03/20 10/03/20 10/03/20 02:42 03:59 05:31 WBC RBC Hgb Hct MCV MCH MCHC RDW Plt Count Lymph % (Auto) [place] % (Auto) Lymph # (Auto) [place] # (Auto) Baso # (Auto) Seg Neutrophils % Seg Neuts % (Manual) Lymphocytes % (Manual) Monocytes % (Manual) Nucleated RBC % Seg Neutrophils # Seg Neutrophils # Man Lymphocytes # (Manual) Monocytes # (Manual) PT INR APTT Fibrinogen D-Dimer ABG pH 7.144 L POC ABG pCO2 54.4 H POC ABG pO2 ABG pO2 ABG HCO3 ABG Base Excess ABG Hemoglobin 10.0 L ABG Oxyhemoglobin ABG Sodium ABG Potassium ABG Chloride 108.0 H ABG Glucose 306 H VBG pH Oxyhemoglobin Carboxyhemoglobin Sodium Potassium Chloride Carbon Dioxide BUN Creatinine Glucose POC Glucose 209 H Random Insulin C-Peptide Lactic Acid 9.20 H* Calcium Ionized Calcium Phosphorus Magnesium AST ALT Alkaline Phosphatase Lactate Dehydrogenase NT-Pro-B Natriuret Pep Total Protein Albumin Arterial Blood Glucose 306 H Arterial Blood Ionized Calcium 3.7 L Urine WBC (Auto) Vancomycin Trough Phenytoin Crossmatch 10/03/20 10/03/20 10/03/20 09:00 09:00 09:00 WBC 27.4 H RBC 2.84 L Hgb 8.5 L Hct 25.1 L MCV MCH MCHC RDW 16.1 H Plt Count 72 L Lymph % (Auto) [place] % (Auto) Lymph # (Auto) [place] # (Auto) Baso # (Auto) Seg Neutrophils % Seg Neuts % (Manual) Lymphocytes % (Manual) 11.0 L Monocytes % (Manual) Nucleated RBC % 3.0 H Seg Neutrophils # Seg Neutrophils # Man 18.4 H Lymphocytes # (Manual) Monocytes # (Manual) 1.9 H PT INR APTT Fibrinogen D-Dimer ABG pH POC ABG pCO2 POC ABG pO2 ABG pO2 ABG HCO3 ABG Base Excess ABG Hemoglobin ABG Oxyhemoglobin ABG Sodium ABG Potassium ABG Chloride ABG Glucose VBG pH Oxyhemoglobin Carboxyhemoglobin Sodium Potassium Chloride Carbon Dioxide BUN Creatinine 1.7 H Glucose 216 H POC Glucose Random Insulin C-Peptide Lactic Acid 9.20 H* Calcium 6.3 L Ionized Calcium Phosphorus Magnesium AST 331 H ALT 171 H Alkaline Phosphatase Lactate Dehydrogenase NT-Pro-B Natriuret Pep Total Protein 3.7 L Albumin 1.9 L Arterial Blood Glucose Arterial Blood Ionized Calcium Urine WBC (Auto) Vancomycin Trough Phenytoin Crossmatch 10/03/20 10/03/20 10/03/20 11:20 11:46 11:50 WBC 28.7 H RBC 2.67 L Hgb 8.0 L Hct 23.7 L MCV MCH MCHC RDW 16.6 H Plt Count 76 L Lymph % (Auto) [place] % (Auto) Lymph # (Auto) [place] # (Auto) Baso # (Auto) Seg Neutrophils % Seg Neuts % (Manual) Lymphocytes % (Manual) Monocytes % (Manual) Nucleated RBC % Seg Neutrophils # Seg Neutrophils # Man Lymphocytes # (Manual) Monocytes # (Manual) PT INR APTT Fibrinogen D-Dimer ABG pH POC ABG pCO2 POC ABG pO2 ABG pO2 ABG HCO3 ABG Base Excess ABG Hemoglobin ABG Oxyhemoglobin ABG Sodium ABG Potassium ABG Chloride ABG Glucose VBG pH Oxyhemoglobin Carboxyhemoglobin Sodium Potassium Chloride Carbon Dioxide BUN Creatinine Glucose POC Glucose 125 H Random Insulin C-Peptide Lactic Acid 8.00 H* Calcium Ionized Calcium Phosphorus Magnesium AST ALT Alkaline Phosphatase Lactate Dehydrogenase NT-Pro-B Natriuret Pep Total Protein Albumin Arterial Blood Glucose Arterial Blood Ionized Calcium Urine WBC (Auto) Vancomycin Trough Phenytoin Crossmatch 10/03/20 10/04/20 10/04/20 11:50 00:40 00:40 WBC RBC Hgb 6.8 L Hct 19.4 L* MCV MCH MCHC RDW Plt Count 49 L Lymph % (Auto) [place] % (Auto) Lymph # (Auto) [place] # (Auto) Baso # (Auto) Seg Neutrophils % Seg Neuts % (Manual) Lymphocytes % (Manual) Monocytes % (Manual) Nucleated RBC % Seg Neutrophils # Seg Neutrophils # Man Lymphocytes # (Manual) Monocytes # (Manual) PT INR APTT Fibrinogen D-Dimer ABG pH 7.244 L POC ABG pCO2 POC ABG pO2 ABG pO2 ABG HCO3 ABG Base Excess -4.5 L ABG Hemoglobin 7.3 L ABG Oxyhemoglobin ABG Sodium ABG Potassium ABG Chloride ABG Glucose VBG pH Oxyhemoglobin Carboxyhemoglobin Sodium Potassium Chloride Carbon Dioxide BUN Creatinine Glucose POC Glucose Random Insulin C-Peptide Lactic Acid Calcium Ionized Calcium Phosphorus Magnesium AST ALT Alkaline Phosphatase Lactate Dehydrogenase NT-Pro-B Natriuret Pep Total Protein Albumin Arterial Blood Glucose Arterial Blood Ionized Calcium Urine WBC (Auto) Vancomycin Trough Phenytoin Crossmatch 10/04/20 10/04/20 10/04/20 03:53 10:00 10:00 WBC 14.6 H RBC 2.57 L Hgb 7.6 L Hct 22.5 L MCV MCH MCHC RDW 15.8 H Plt Count 38 L Lymph % (Auto) 7.7 L [place] % (Auto) Lymph # (Auto) 1.1 L [place] # (Auto) 0.9 H Baso # (Auto) Seg Neutrophils % 85.6 H Seg Neuts % (Manual) Lymphocytes % (Manual) Monocytes % (Manual) Nucleated RBC % Seg Neutrophils # 12.5 H Seg Neutrophils # Man Lymphocytes # (Manual) Monocytes # (Manual) PT INR APTT Fibrinogen D-Dimer ABG pH POC ABG pCO2 POC ABG pO2 110.6 H ABG pO2 ABG HCO3 ABG Base Excess ABG Hemoglobin 6.7 L ABG Oxyhemoglobin ABG Sodium 132.0 L ABG Potassium ABG Chloride ABG Glucose 111 H VBG pH Oxyhemoglobin Carboxyhemoglobin Sodium 134 L D Potassium Chloride 97.6 L Carbon Dioxide BUN Creatinine 1.7 H Glucose POC Glucose Random Insulin C-Peptide Lactic Acid Calcium 6.3 L Ionized Calcium Phosphorus Magnesium AST 203 H ALT 81 H Alkaline Phosphatase Lactate Dehydrogenase NT-Pro-B Natriuret Pep Total Protein 3.9 L Albumin 2.3 L Arterial Blood Glucose 111 H Arterial Blood Ionized Calcium 3.5 L Urine WBC (Auto) Vancomycin Trough Phenytoin Crossmatch 10/04/20 10/04/20 10/04/20 10:00 10:00 10:14 WBC RBC Hgb Hct MCV MCH MCHC RDW Plt Count Lymph % (Auto) [place] % (Auto) Lymph # (Auto) [place] # (Auto) Baso # (Auto) Seg Neutrophils % Seg Neuts % (Manual) Lymphocytes % (Manual) Monocytes % (Manual) Nucleated RBC % Seg Neutrophils # Seg Neutrophils # Man Lymphocytes # (Manual) Monocytes # (Manual) PT INR APTT Fibrinogen D-Dimer > 35444 H ABG pH POC ABG pCO2 POC ABG pO2 ABG pO2 ABG HCO3 ABG Base Excess ABG Hemoglobin ABG Oxyhemoglobin ABG Sodium ABG Potassium ABG Chloride ABG Glucose VBG pH Oxyhemoglobin Carboxyhemoglobin Sodium Potassium Chloride Carbon Dioxide BUN Creatinine Glucose POC Glucose Random Insulin C-Peptide Lactic Acid 3.90 H* Calcium Ionized Calcium Phosphorus Magnesium AST ALT Alkaline Phosphatase Lactate Dehydrogenase NT-Pro-B Natriuret Pep 2788 H Total Protein Albumin Arterial Blood Glucose Arterial Blood Ionized Calcium Urine WBC (Auto) Vancomycin Trough Phenytoin Crossmatch 10/04/20 10/04/20 10/04/20 14:00 14:00 18:00 WBC 15.7 H RBC 3.17 L Hgb 9.3 L 9.6 L Hct 27.2 L 28.0 L MCV MCH MCHC RDW 16.9 H Plt Count 41 L Lymph % (Auto) 8.6 L [place] % (Auto) Lymph # (Auto) [place] # (Auto) 0.9 H Baso # (Auto) Seg Neutrophils % 85.4 H Seg Neuts % (Manual) Lymphocytes % (Manual) Monocytes % (Manual) Nucleated RBC % Seg Neutrophils # 13.4 H Seg Neutrophils # Man Lymphocytes # (Manual) Monocytes # (Manual) PT INR APTT Fibrinogen D-Dimer ABG pH POC ABG pCO2 POC ABG pO2 ABG pO2 ABG HCO3 ABG Base Excess ABG Hemoglobin ABG Oxyhemoglobin ABG Sodium ABG Potassium ABG Chloride ABG Glucose VBG pH Oxyhemoglobin Carboxyhemoglobin Sodium 133 L Potassium Chloride 96.4 L Carbon Dioxide BUN 18 H Creatinine 1.7 H Glucose POC Glucose Random Insulin C-Peptide Lactic Acid Calcium 6.3 L Ionized Calcium Phosphorus Magnesium AST ALT Alkaline Phosphatase Lactate Dehydrogenase NT-Pro-B Natriuret Pep Total Protein Albumin Arterial Blood Glucose Arterial Blood Ionized Calcium Urine WBC (Auto) Vancomycin Trough Phenytoin Crossmatch 10/04/20 10/04/20 10/05/20 18:00 22:00 05:00 WBC 17.6 H RBC 3.34 L Hgb 9.9 L Hct 29.4 L MCV MCH MCHC RDW 17.1 H Plt Count 56 L Lymph % (Auto) 8.5 L [place] % (Auto) Lymph # (Auto) [place] # (Auto) 1.0 H Baso # (Auto) Seg Neutrophils % 85.1 H Seg Neuts % (Manual) Lymphocytes % (Manual) Monocytes % (Manual) Nucleated RBC % Seg Neutrophils # 15.0 H Seg Neutrophils # Man Lymphocytes # (Manual) Monocytes # (Manual) PT INR APTT Fibrinogen D-Dimer ABG pH POC ABG pCO2 POC ABG pO2 ABG pO2 ABG HCO3 ABG Base Excess ABG Hemoglobin ABG Oxyhemoglobin ABG Sodium ABG Potassium ABG Chloride ABG Glucose VBG pH Oxyhemoglobin Carboxyhemoglobin Sodium 136 L Potassium Chloride Carbon Dioxide BUN 18 H Creatinine 1.7 H Glucose POC Glucose Random Insulin C-Peptide Lactic Acid 2.30 H* Calcium 6.6 L Ionized Calcium Phosphorus Magnesium AST ALT Alkaline Phosphatase Lactate Dehydrogenase NT-Pro-B Natriuret Pep Total Protein Albumin Arterial Blood Glucose Arterial Blood Ionized Calcium Urine WBC (Auto) Vancomycin Trough Phenytoin Crossmatch 10/05/20 10/05/20 10/05/20 05:00 05:00 05:03 WBC RBC Hgb Hct MCV MCH MCHC RDW Plt Count Lymph % (Auto) [place] % (Auto) Lymph # (Auto) [place] # (Auto) Baso # (Auto) Seg Neutrophils % Seg Neuts % (Manual) Lymphocytes % (Manual) Monocytes % (Manual) Nucleated RBC % Seg Neutrophils # Seg Neutrophils # Man Lymphocytes # (Manual) Monocytes # (Manual) PT INR APTT Fibrinogen D-Dimer ABG pH 7.458 H POC ABG pCO2 POC ABG pO2 ABG pO2 74.3 L ABG HCO3 27.5 H ABG Base Excess 3.4 H ABG Hemoglobin 10.0 L ABG Oxyhemoglobin ABG Sodium ABG Potassium ABG Chloride ABG Glucose VBG pH Oxyhemoglobin 94.9 L Carboxyhemoglobin Sodium Potassium Chloride Carbon Dioxide BUN 19 H Creatinine 1.8 H Glucose POC Glucose Random Insulin C-Peptide Lactic Acid Calcium 6.8 L Ionized Calcium 3.9 L Phosphorus Magnesium AST 225 H ALT 85 H Alkaline Phosphatase Lactate Dehydrogenase NT-Pro-B Natriuret Pep Total Protein 4.5 L Albumin 2.7 L Arterial Blood Glucose Arterial Blood Ionized Calcium Urine WBC (Auto) Vancomycin Trough Phenytoin Crossmatch 10/05/20 10/05/20 10/05/20 10:10 15:00 19:40 WBC RBC Hgb Hct MCV MCH MCHC RDW Plt Count Lymph % (Auto) [place] % (Auto) Lymph # (Auto) [place] # (Auto) Baso # (Auto) Seg Neutrophils % Seg Neuts % (Manual) Lymphocytes % (Manual) Monocytes % (Manual) Nucleated RBC % Seg Neutrophils # Seg Neutrophils # Man Lymphocytes # (Manual) Monocytes # (Manual) PT INR APTT Fibrinogen D-Dimer ABG pH POC ABG pCO2 POC ABG pO2 ABG pO2 ABG HCO3 ABG Base Excess ABG Hemoglobin ABG Oxyhemoglobin ABG Sodium ABG Potassium ABG Chloride ABG Glucose VBG pH Oxyhemoglobin Carboxyhemoglobin Sodium Potassium 3.5 L Chloride Carbon Dioxide 31 H 32 H BUN 19 H 19 H Creatinine 1.8 H 1.8 H Glucose POC Glucose Random Insulin C-Peptide Lactic Acid Calcium 7.0 L 7.2 L Ionized Calcium Phosphorus Magnesium 2.90 H AST ALT Alkaline Phosphatase Lactate Dehydrogenase NT-Pro-B Natriuret Pep Total Protein Albumin Arterial Blood Glucose Arterial Blood Ionized Calcium Urine WBC (Auto) Vancomycin Trough Phenytoin Crossmatch 10/06/20 10/06/20 10/06/20 01:05 03:12 04:00 WBC 17.1 H RBC 3.47 L Hgb Hct MCV MCH MCHC RDW 17.4 H Plt Count 82 L Lymph % (Auto) 8.3 L [place] % (Auto) Lymph # (Auto) [place] # (Auto) 1.1 H Baso # (Auto) Seg Neutrophils % 83.8 H Seg Neuts % (Manual) Lymphocytes % (Manual) Monocytes % (Manual) Nucleated RBC % Seg Neutrophils # 14.3 H Seg Neutrophils # Man Lymphocytes # (Manual) Monocytes # (Manual) PT INR APTT Fibrinogen D-Dimer ABG pH 7.474 H POC ABG pCO2 POC ABG pO2 129.5 H ABG pO2 ABG HCO3 ABG Base Excess ABG Hemoglobin 11.4 L ABG Oxyhemoglobin ABG Sodium 131.8 L ABG Potassium ABG Chloride ABG Glucose 103 H VBG pH Oxyhemoglobin Carboxyhemoglobin 0.3 L Sodium Potassium Chloride Carbon Dioxide BUN Creatinine Glucose POC Glucose Random Insulin C-Peptide Lactic Acid Calcium Ionized Calcium Phosphorus Magnesium 3.70 H AST ALT Alkaline Phosphatase Lactate Dehydrogenase NT-Pro-B Natriuret Pep Total Protein Albumin Arterial Blood Glucose 103 H Arterial Blood Ionized Calcium 4.2 L Urine WBC (Auto) Vancomycin Trough Phenytoin Crossmatch 10/06/20 10/06/20 10/06/20 04:00 05:31 08:12 WBC RBC Hgb Hct MCV MCH MCHC RDW Plt Count Lymph % (Auto) [place] % (Auto) Lymph # (Auto) [place] # (Auto) Baso # (Auto) Seg Neutrophils % Seg Neuts % (Manual) Lymphocytes % (Manual) Monocytes % (Manual) Nucleated RBC % Seg Neutrophils # Seg Neutrophils # Man Lymphocytes # (Manual) Monocytes # (Manual) PT INR APTT Fibrinogen D-Dimer ABG pH POC ABG pCO2 POC ABG pO2 ABG pO2 ABG HCO3 ABG Base Excess ABG Hemoglobin ABG Oxyhemoglobin ABG Sodium ABG Potassium ABG Chloride ABG Glucose VBG pH Oxyhemoglobin Carboxyhemoglobin Sodium Potassium 3.5 L Chloride Carbon Dioxide BUN 19 H Creatinine 1.8 H Glucose 102 H POC Glucose 116 H Random Insulin C-Peptide Lactic Acid Calcium 7.2 L Ionized Calcium Phosphorus Magnesium 5.40 H AST 307 H ALT 137 H Alkaline Phosphatase Lactate Dehydrogenase NT-Pro-B Natriuret Pep Total Protein 4.5 L Albumin 2.6 L Arterial Blood Glucose Arterial Blood Ionized Calcium Urine WBC (Auto) Vancomycin Trough Phenytoin Crossmatch 10/06/20 10/06/20 10/06/20 11:00 11:50 20:13 WBC RBC Hgb Hct MCV MCH MCHC RDW Plt Count Lymph % (Auto) [place] % (Auto) Lymph # (Auto) [place] # (Auto) Baso # (Auto) Seg Neutrophils % Seg Neuts % (Manual) Lymphocytes % (Manual) Monocytes % (Manual) Nucleated RBC % Seg Neutrophils # Seg Neutrophils # Man Lymphocytes # (Manual) Monocytes # (Manual) PT INR APTT Fibrinogen D-Dimer ABG pH POC ABG pCO2 POC ABG pO2 ABG pO2 ABG HCO3 ABG Base Excess ABG Hemoglobin ABG Oxyhemoglobin ABG Sodium ABG Potassium ABG Chloride ABG Glucose VBG pH Oxyhemoglobin Carboxyhemoglobin Sodium Potassium Chloride Carbon Dioxide BUN Creatinine Glucose POC Glucose 106 H Random Insulin C-Peptide Lactic Acid Calcium Ionized Calcium Phosphorus Magnesium 6.50 H 6.20 H AST ALT Alkaline Phosphatase Lactate Dehydrogenase NT-Pro-B Natriuret Pep Total Protein Albumin Arterial Blood Glucose Arterial Blood Ionized Calcium Urine WBC (Auto) Vancomycin Trough Phenytoin Crossmatch 10/06/20 10/06/20 10/06/20 20:17 22:29 23:57 WBC RBC Hgb Hct MCV MCH MCHC RDW Plt Count Lymph % (Auto) [place] % (Auto) Lymph # (Auto) [place] # (Auto) Baso # (Auto) Seg Neutrophils % Seg Neuts % (Manual) Lymphocytes % (Manual) Monocytes % (Manual) Nucleated RBC % Seg Neutrophils # Seg Neutrophils # Man Lymphocytes # (Manual) Monocytes # (Manual) PT INR APTT Fibrinogen D-Dimer ABG pH POC ABG pCO2 POC ABG pO2 ABG pO2 ABG HCO3 ABG Base Excess ABG Hemoglobin ABG Oxyhemoglobin ABG Sodium ABG Potassium ABG Chloride ABG Glucose VBG pH Oxyhemoglobin Carboxyhemoglobin Sodium Potassium Chloride Carbon Dioxide BUN Creatinine Glucose POC Glucose 112 H 126 H 133 H Random Insulin C-Peptide Lactic Acid Calcium Ionized Calcium Phosphorus Magnesium AST ALT Alkaline Phosphatase Lactate Dehydrogenase NT-Pro-B Natriuret Pep Total Protein Albumin Arterial Blood Glucose Arterial Blood Ionized Calcium Urine WBC (Auto) Vancomycin Trough Phenytoin Crossmatch 10/07/20 10/07/20 10/07/20 00:35 02:22 03:16 WBC RBC Hgb Hct MCV MCH MCHC RDW Plt Count Lymph % (Auto) [place] % (Auto) Lymph # (Auto) [place] # (Auto) Baso # (Auto) Seg Neutrophils % Seg Neuts % (Manual) Lymphocytes % (Manual) Monocytes % (Manual) Nucleated RBC % Seg Neutrophils # Seg Neutrophils # Man Lymphocytes # (Manual) Monocytes # (Manual) PT INR APTT Fibrinogen D-Dimer ABG pH POC ABG pCO2 POC ABG pO2 ABG pO2 ABG HCO3 ABG Base Excess ABG Hemoglobin 11.6 L ABG Oxyhemoglobin ABG Sodium ABG Potassium ABG Chloride ABG Glucose 156 H VBG pH Oxyhemoglobin Carboxyhemoglobin 0.3 L Sodium Potassium Chloride Carbon Dioxide BUN Creatinine Glucose POC Glucose 124 H Random Insulin C-Peptide Lactic Acid Calcium Ionized Calcium Phosphorus Magnesium 5.90 H AST ALT Alkaline Phosphatase Lactate Dehydrogenase NT-Pro-B Natriuret Pep Total Protein Albumin Arterial Blood Glucose 156 H Arterial Blood Ionized Calcium 4.2 L Urine WBC (Auto) Vancomycin Trough Phenytoin Crossmatch 10/07/20 10/07/20 10/07/20 04:06 05:45 07:05 WBC 19.2 H RBC 3.57 L Hgb Hct MCV MCH MCHC 35 H RDW 17.1 H Plt Count 129 L Lymph % (Auto) [place] % (Auto) Lymph # (Auto) [place] # (Auto) Baso # (Auto) Seg Neutrophils % Seg Neuts % (Manual) 94.0 H Lymphocytes % (Manual) 6.0 L Monocytes % (Manual) Nucleated RBC % Seg Neutrophils # Seg Neutrophils # Man 18.0 H Lymphocytes # (Manual) Monocytes # (Manual) PT INR APTT Fibrinogen D-Dimer ABG pH POC ABG pCO2 POC ABG pO2 ABG pO2 ABG HCO3 ABG Base Excess ABG Hemoglobin ABG Oxyhemoglobin ABG Sodium ABG Potassium ABG Chloride ABG Glucose VBG pH Oxyhemoglobin Carboxyhemoglobin Sodium Potassium Chloride Carbon Dioxide BUN Creatinine Glucose POC Glucose 135 H 149 H Random Insulin C-Peptide Lactic Acid Calcium Ionized Calcium Phosphorus Magnesium AST ALT Alkaline Phosphatase Lactate Dehydrogenase NT-Pro-B Natriuret Pep Total Protein Albumin Arterial Blood Glucose Arterial Blood Ionized Calcium Urine WBC (Auto) Vancomycin Trough Phenytoin Crossmatch 10/07/20 10/07/20 10/07/20 07:05 07:05 12:21 WBC RBC Hgb Hct MCV MCH MCHC RDW Plt Count Lymph % (Auto) [place] % (Auto) Lymph # (Auto) [place] # (Auto) Baso # (Auto) Seg Neutrophils % Seg Neuts % (Manual) Lymphocytes % (Manual) Monocytes % (Manual) Nucleated RBC % Seg Neutrophils # Seg Neutrophils # Man Lymphocytes # (Manual) Monocytes # (Manual) PT INR APTT Fibrinogen D-Dimer ABG pH POC ABG pCO2 POC ABG pO2 ABG pO2 ABG HCO3 ABG Base Excess ABG Hemoglobin ABG Oxyhemoglobin ABG Sodium ABG Potassium ABG Chloride ABG Glucose VBG pH Oxyhemoglobin Carboxyhemoglobin Sodium Potassium Chloride Carbon Dioxide BUN 21 H Creatinine 1.7 H Glucose 171 H POC Glucose 124 H Random Insulin C-Peptide Lactic Acid Calcium 7.4 L Ionized Calcium Phosphorus Magnesium 6.10 H AST 245 H ALT 147 H Alkaline Phosphatase Lactate Dehydrogenase NT-Pro-B Natriuret Pep Total Protein 5.3 L Albumin 2.8 L Arterial Blood Glucose Arterial Blood Ionized Calcium Urine WBC (Auto) Vancomycin Trough Phenytoin Crossmatch 10/07/20 10/07/20 10/07/20 19:52 21:00 21:50 WBC RBC Hgb Hct MCV MCH MCHC RDW Plt Count Lymph % (Auto) [place] % (Auto) Lymph # (Auto) [place] # (Auto) Baso # (Auto) Seg Neutrophils % Seg Neuts % (Manual) Lymphocytes % (Manual) Monocytes % (Manual) Nucleated RBC % Seg Neutrophils # Seg Neutrophils # Man Lymphocytes # (Manual) Monocytes # (Manual) PT INR APTT Fibrinogen D-Dimer ABG pH POC ABG pCO2 POC ABG pO2 ABG pO2 ABG HCO3 ABG Base Excess ABG Hemoglobin ABG Oxyhemoglobin ABG Sodium ABG Potassium ABG Chloride ABG Glucose VBG pH Oxyhemoglobin Carboxyhemoglobin Sodium Potassium Chloride Carbon Dioxide BUN Creatinine Glucose POC Glucose 193 H 138 H Random Insulin C-Peptide Lactic Acid Calcium Ionized Calcium 4.4 L Phosphorus Magnesium AST ALT Alkaline Phosphatase Lactate Dehydrogenase NT-Pro-B Natriuret Pep Total Protein Albumin Arterial Blood Glucose Arterial Blood Ionized Calcium Urine WBC (Auto) Vancomycin Trough Phenytoin Crossmatch 10/07/20 10/08/20 10/08/20 23:41 04:20 05:30 WBC RBC Hgb Hct MCV MCH MCHC RDW Plt Count Lymph % (Auto) [place] % (Auto) Lymph # (Auto) [place] # (Auto) Baso # (Auto) Seg Neutrophils % Seg Neuts % (Manual) Lymphocytes % (Manual) Monocytes % (Manual) Nucleated RBC % Seg Neutrophils # Seg Neutrophils # Man Lymphocytes # (Manual) Monocytes # (Manual) PT INR APTT Fibrinogen D-Dimer ABG pH 7.467 H POC ABG pCO2 POC ABG pO2 189.8 H ABG pO2 ABG HCO3 ABG Base Excess ABG Hemoglobin 10.8 L ABG Oxyhemoglobin ABG Sodium ABG Potassium ABG Chloride ABG Glucose 133 H VBG pH Oxyhemoglobin Carboxyhemoglobin Sodium Potassium Chloride Carbon Dioxide BUN Creatinine Glucose POC Glucose 118 H 114 H Random Insulin C-Peptide Lactic Acid Calcium Ionized Calcium Phosphorus Magnesium AST ALT Alkaline Phosphatase Lactate Dehydrogenase NT-Pro-B Natriuret Pep Total Protein Albumin Arterial Blood Glucose 133 H Arterial Blood Ionized Calcium 4.2 L Urine WBC (Auto) Vancomycin Trough Phenytoin Crossmatch 10/08/20 10/08/20 10/08/20 05:43 06:42 06:42 WBC 23.6 H RBC 3.54 L Hgb Hct MCV MCH MCHC RDW 17.8 H Plt Count Lymph % (Auto) [place] % (Auto) Lymph # (Auto) [place] # (Auto) Baso # (Auto) Seg Neutrophils % Seg Neuts % (Manual) 93.0 H Lymphocytes % (Manual) 3.0 L Monocytes % (Manual) Nucleated RBC % 1.0 H Seg Neutrophils # Seg Neutrophils # Man 21.9 H Lymphocytes # (Manual) 0.7 L Monocytes # (Manual) 0.9 H PT INR APTT Fibrinogen D-Dimer ABG pH POC ABG pCO2 POC ABG pO2 ABG pO2 ABG HCO3 ABG Base Excess ABG Hemoglobin ABG Oxyhemoglobin ABG Sodium ABG Potassium ABG Chloride ABG Glucose VBG pH Oxyhemoglobin Carboxyhemoglobin Sodium Potassium Chloride Carbon Dioxide BUN 28 H Creatinine 1.6 H Glucose 141 H POC Glucose 126 H Random Insulin C-Peptide Lactic Acid Calcium 7.6 L Ionized Calcium Phosphorus Magnesium AST 162 H ALT 103 H Alkaline Phosphatase Lactate Dehydrogenase NT-Pro-B Natriuret Pep Total Protein 5.4 L Albumin 2.7 L Arterial Blood Glucose Arterial Blood Ionized Calcium Urine WBC (Auto) Vancomycin Trough Phenytoin Crossmatch 10/08/20 10/08/20 10/08/20 11:20 16:05 20:14 WBC RBC Hgb Hct MCV MCH MCHC RDW Plt Count Lymph % (Auto) [place] % (Auto) Lymph # (Auto) [place] # (Auto) Baso # (Auto) Seg Neutrophils % Seg Neuts % (Manual) Lymphocytes % (Manual) Monocytes % (Manual) Nucleated RBC % Seg Neutrophils # Seg Neutrophils # Man Lymphocytes # (Manual) Monocytes # (Manual) PT INR APTT Fibrinogen D-Dimer ABG pH POC ABG pCO2 POC ABG pO2 ABG pO2 ABG HCO3 ABG Base Excess ABG Hemoglobin ABG Oxyhemoglobin ABG Sodium ABG Potassium ABG Chloride ABG Glucose VBG pH Oxyhemoglobin Carboxyhemoglobin Sodium Potassium Chloride Carbon Dioxide BUN Creatinine Glucose POC Glucose 127 H 172 H 147 H Random Insulin C-Peptide Lactic Acid Calcium Ionized Calcium Phosphorus Magnesium AST ALT Alkaline Phosphatase Lactate Dehydrogenase NT-Pro-B Natriuret Pep Total Protein Albumin Arterial Blood Glucose Arterial Blood Ionized Calcium Urine WBC (Auto) Vancomycin Trough Phenytoin Crossmatch 10/08/20 10/08/20 10/09/20 21:27 23:24 02:10 WBC RBC Hgb Hct MCV MCH MCHC RDW Plt Count Lymph % (Auto) [place] % (Auto) Lymph # (Auto) [place] # (Auto) Baso # (Auto) Seg Neutrophils % Seg Neuts % (Manual) Lymphocytes % (Manual) Monocytes % (Manual) Nucleated RBC % Seg Neutrophils # Seg Neutrophils # Man Lymphocytes # (Manual) Monocytes # (Manual) PT INR APTT Fibrinogen D-Dimer ABG pH POC ABG pCO2 POC ABG pO2 ABG pO2 ABG HCO3 ABG Base Excess ABG Hemoglobin ABG Oxyhemoglobin ABG Sodium ABG Potassium ABG Chloride ABG Glucose VBG pH Oxyhemoglobin Carboxyhemoglobin Sodium Potassium Chloride Carbon Dioxide BUN Creatinine Glucose POC Glucose 140 H 135 H 111 H Random Insulin C-Peptide Lactic Acid Calcium Ionized Calcium Phosphorus Magnesium AST ALT Alkaline Phosphatase Lactate Dehydrogenase NT-Pro-B Natriuret Pep Total Protein Albumin Arterial Blood Glucose Arterial Blood Ionized Calcium Urine WBC (Auto) Vancomycin Trough Phenytoin Crossmatch 10/09/20 10/09/20 10/09/20 03:44 04:39 05:46 WBC 19.7 H RBC 3.51 L Hgb Hct MCV MCH MCHC RDW 17.7 H Plt Count Lymph % (Auto) [place] % (Auto) Lymph # (Auto) [place] # (Auto) Baso # (Auto) Seg Neutrophils % Seg Neuts % (Manual) 86.0 H Lymphocytes % (Manual) 4.0 L Monocytes % (Manual) 9.0 H Nucleated RBC % Seg Neutrophils # Seg Neutrophils # Man 16.9 H Lymphocytes # (Manual) 0.8 L Monocytes # (Manual) 1.8 H PT INR APTT Fibrinogen D-Dimer ABG pH 7.513 H POC ABG pCO2 POC ABG pO2 33.6 L ABG pO2 ABG HCO3 ABG Base Excess ABG Hemoglobin 11.1 L ABG Oxyhemoglobin 70.2 L ABG Sodium ABG Potassium 3.2 L ABG Chloride 108.0 H ABG Glucose 108 H VBG pH Oxyhemoglobin Carboxyhemoglobin Sodium Potassium Chloride Carbon Dioxide BUN Creatinine Glucose POC Glucose 109 H Random Insulin C-Peptide Lactic Acid Calcium Ionized Calcium Phosphorus Magnesium AST ALT Alkaline Phosphatase Lactate Dehydrogenase NT-Pro-B Natriuret Pep Total Protein Albumin Arterial Blood Glucose 108 H Arterial Blood Ionized Calcium 4.3 L Urine WBC (Auto) Vancomycin Trough Phenytoin Crossmatch 10/09/20 10/10/20 10/10/20 05:46 04:00 04:00 WBC 18.4 H RBC Hgb Hct MCV MCH MCHC RDW 17.5 H Plt Count Lymph % (Auto) 9.8 L [place] % (Auto) 8.8 H Lymph # (Auto) [place] # (Auto) 1.6 H Baso # (Auto) Seg Neutrophils % 80.0 H Seg Neuts % (Manual) Lymphocytes % (Manual) Monocytes % (Manual) Nucleated RBC % Seg Neutrophils # 14.7 H Seg Neutrophils # Man Lymphocytes # (Manual) Monocytes # (Manual) PT INR APTT Fibrinogen D-Dimer ABG pH POC ABG pCO2 POC ABG pO2 ABG pO2 ABG HCO3 ABG Base Excess ABG Hemoglobin ABG Oxyhemoglobin ABG Sodium ABG Potassium ABG Chloride ABG Glucose VBG pH Oxyhemoglobin Carboxyhemoglobin Sodium 146 H Potassium 3.2 L 2.9 L* Chloride 108.9 H 112.6 H Carbon Dioxide BUN 34 H 28 H Creatinine 1.4 H 1.3 H Glucose 109 H 101 H POC Glucose Random Insulin C-Peptide Lactic Acid Calcium 7.6 L 7.8 L Ionized Calcium Phosphorus Magnesium AST 137 H 122 H ALT 99 H 81 H Alkaline Phosphatase Lactate Dehydrogenase NT-Pro-B Natriuret Pep Total Protein 5.1 L 5.2 L Albumin 2.6 L 2.7 L Arterial Blood Glucose Arterial Blood Ionized Calcium Urine WBC (Auto) Vancomycin Trough Phenytoin Crossmatch 10/10/20 10/10/20 10/11/20 04:42 09:50 00:44 WBC RBC Hgb Hct MCV MCH MCHC RDW Plt Count Lymph % (Auto) [place] % (Auto) Lymph # (Auto) [place] # (Auto) Baso # (Auto) Seg Neutrophils % Seg Neuts % (Manual) Lymphocytes % (Manual) Monocytes % (Manual) Nucleated RBC % Seg Neutrophils # Seg Neutrophils # Man Lymphocytes # (Manual) Monocytes # (Manual) PT INR APTT Fibrinogen D-Dimer ABG pH 7.534 H POC ABG pCO2 POC ABG pO2 ABG pO2 95.2 H ABG HCO3 ABG Base Excess ABG Hemoglobin 11.3 L ABG Oxyhemoglobin ABG Sodium ABG Potassium ABG Chloride ABG Glucose VBG pH Oxyhemoglobin Carboxyhemoglobin Sodium Potassium Chloride Carbon Dioxide BUN Creatinine Glucose POC Glucose 109 H 106 H Random Insulin C-Peptide Lactic Acid Calcium Ionized Calcium Phosphorus Magnesium AST ALT Alkaline Phosphatase Lactate Dehydrogenase NT-Pro-B Natriuret Pep Total Protein Albumin Arterial Blood Glucose Arterial Blood Ionized Calcium Urine WBC (Auto) Vancomycin Trough Phenytoin Crossmatch 10/11/20 10/11/20 10/11/20 04:00 04:00 06:08 WBC 27.0 H RBC Hgb Hct MCV MCH MCHC RDW 17.7 H Plt Count Lymph % (Auto) 6.3 L [place] % (Auto) Lymph # (Auto) [place] # (Auto) 1.5 H Baso # (Auto) Seg Neutrophils % 87.1 H Seg Neuts % (Manual) Lymphocytes % (Manual) Monocytes % (Manual) Nucleated RBC % Seg Neutrophils # 23.5 H Seg Neutrophils # Man Lymphocytes # (Manual) Monocytes # (Manual) PT INR APTT Fibrinogen D-Dimer ABG pH POC ABG pCO2 POC ABG pO2 ABG pO2 ABG HCO3 ABG Base Excess ABG Hemoglobin ABG Oxyhemoglobin ABG Sodium ABG Potassium ABG Chloride ABG Glucose VBG pH Oxyhemoglobin Carboxyhemoglobin Sodium Potassium 3.2 L Chloride 110.4 H Carbon Dioxide 19 L BUN 22 H Creatinine Glucose 116 H POC Glucose 107 H Random Insulin C-Peptide Lactic Acid Calcium 7.7 L Ionized Calcium Phosphorus Magnesium 1.60 L AST ALT Alkaline Phosphatase Lactate Dehydrogenase NT-Pro-B Natriuret Pep Total Protein Albumin Arterial Blood Glucose Arterial Blood Ionized Calcium Urine WBC (Auto) Vancomycin Trough Phenytoin Crossmatch 10/11/20 10/11/20 10/12/20 11:41 13:26 03:52 WBC RBC Hgb Hct MCV MCH MCHC RDW Plt Count Lymph % (Auto) [place] % (Auto) Lymph # (Auto) [place] # (Auto) Baso # (Auto) Seg Neutrophils % Seg Neuts % (Manual) Lymphocytes % (Manual) Monocytes % (Manual) Nucleated RBC % Seg Neutrophils # Seg Neutrophils # Man Lymphocytes # (Manual) Monocytes # (Manual) PT INR APTT Fibrinogen D-Dimer ABG pH POC ABG pCO2 POC ABG pO2 ABG pO2 ABG HCO3 ABG Base Excess ABG Hemoglobin ABG Oxyhemoglobin ABG Sodium ABG Potassium ABG Chloride ABG Glucose VBG pH Oxyhemoglobin Carboxyhemoglobin Sodium Potassium Chloride Carbon Dioxide BUN Creatinine Glucose POC Glucose 116 H 114 H Random Insulin C-Peptide Lactic Acid Calcium Ionized Calcium Phosphorus Magnesium AST ALT Alkaline Phosphatase Lactate Dehydrogenase NT-Pro-B Natriuret Pep Total Protein Albumin Arterial Blood Glucose Arterial Blood Ionized Calcium Urine WBC (Auto) 24.0 H Vancomycin Trough Phenytoin Crossmatch 10/12/20 10/12/20 10/12/20 04:24 14:47 21:33 WBC RBC Hgb Hct MCV MCH MCHC RDW Plt Count Lymph % (Auto) [place] % (Auto) Lymph # (Auto) [place] # (Auto) Baso # (Auto) Seg Neutrophils % Seg Neuts % (Manual) Lymphocytes % (Manual) Monocytes % (Manual) Nucleated RBC % Seg Neutrophils # Seg Neutrophils # Man Lymphocytes # (Manual) Monocytes # (Manual) PT INR APTT Fibrinogen D-Dimer ABG pH POC ABG pCO2 POC ABG pO2 ABG pO2 ABG HCO3 ABG Base Excess ABG Hemoglobin ABG Oxyhemoglobin ABG Sodium ABG Potassium ABG Chloride ABG Glucose VBG pH Oxyhemoglobin Carboxyhemoglobin Sodium Potassium Chloride 109.9 H Carbon Dioxide 13 L BUN 18 H Creatinine Glucose 119 H POC Glucose 107 H Random Insulin C-Peptide Lactic Acid Calcium 7.6 L Ionized Calcium Phosphorus Magnesium 1.60 L AST ALT Alkaline Phosphatase Lactate Dehydrogenase NT-Pro-B Natriuret Pep Total Protein Albumin Arterial Blood Glucose Arterial Blood Ionized Calcium Urine WBC (Auto) Vancomycin Trough Phenytoin Crossmatch 10/12/20 10/12/20 10/13/20 Unknown Unknown 07:00 WBC 24.3 H RBC 3.38 L Hgb 9.8 L Hct MCV MCH MCHC RDW 18.7 H Plt Count Lymph % (Auto) [place] % (Auto) Lymph # (Auto) [place] # (Auto) Baso # (Auto) Seg Neutrophils % Seg Neuts % (Manual) 93.5 H Lymphocytes % (Manual) 4.5 L Monocytes % (Manual) Nucleated RBC % Seg Neutrophils # Seg Neutrophils # Man 22.7 H Lymphocytes # (Manual) 1.1 L Monocytes # (Manual) PT INR APTT Fibrinogen D-Dimer ABG pH POC ABG pCO2 POC ABG pO2 ABG pO2 ABG HCO3 ABG Base Excess ABG Hemoglobin ABG Oxyhemoglobin ABG Sodium ABG Potassium ABG Chloride ABG Glucose VBG pH Oxyhemoglobin Carboxyhemoglobin Sodium 135 L D Potassium 3.1 L Chloride Carbon Dioxide 17 L BUN Creatinine Glucose 510 H* POC Glucose Random Insulin C-Peptide Lactic Acid Calcium 7.2 L Ionized Calcium Phosphorus Magnesium AST ALT Alkaline Phosphatase Lactate Dehydrogenase NT-Pro-B Natriuret Pep Total Protein Albumin Arterial Blood Glucose Arterial Blood Ionized Calcium Urine WBC (Auto) Vancomycin Trough Phenytoin 5.7 L Crossmatch 10/13/20 10/13/20 10/13/20 07:00 07:00 07:18 WBC 23.6 H RBC 3.26 L Hgb 9.4 L Hct 28.7 L MCV MCH MCHC RDW 18.3 H Plt Count Lymph % (Auto) [place] % (Auto) Lymph # (Auto) [place] # (Auto) Baso # (Auto) Seg Neutrophils % Seg Neuts % (Manual) Lymphocytes % (Manual) Monocytes % (Manual) Nucleated RBC % Seg Neutrophils # Seg Neutrophils # Man Lymphocytes # (Manual) Monocytes # (Manual) PT INR APTT Fibrinogen D-Dimer ABG pH 7.473 H POC ABG pCO2 20.7 L POC ABG pO2 137.9 H ABG pO2 ABG HCO3 ABG Base Excess ABG Hemoglobin 11.2 L ABG Oxyhemoglobin 98.3 H ABG Sodium 135.9 L ABG Potassium ABG Chloride 111.0 H ABG Glucose 109 H VBG pH Oxyhemoglobin Carboxyhemoglobin 0.3 L Sodium 135 L Potassium 3.5 L Chloride 109.1 H Carbon Dioxide 18 L BUN Creatinine Glucose POC Glucose Random Insulin C-Peptide Lactic Acid Calcium 7.3 L Ionized Calcium Phosphorus Magnesium 1.60 L AST ALT Alkaline Phosphatase Lactate Dehydrogenase NT-Pro-B Natriuret Pep Total Protein Albumin Arterial Blood Glucose 109 H Arterial Blood Ionized Calcium Urine WBC (Auto) Vancomycin Trough Phenytoin Crossmatch 10/14/20 10/14/20 10/15/20 04:00 04:00 05:50 WBC 28.6 H 23.2 H RBC 3.61 L 3.43 L Hgb 9.9 L Hct 30.0 L MCV MCH MCHC RDW 18.3 H 18.2 H Plt Count Lymph % (Auto) [place] % (Auto) Lymph # (Auto) [place] # (Auto) Baso # (Auto) Seg Neutrophils % Seg Neuts % (Manual) 88.0 H 90.0 H Lymphocytes % (Manual) 5.0 L 4.0 L Monocytes % (Manual) Nucleated RBC % Seg Neutrophils # Seg Neutrophils # Man 25.2 H 20.9 H Lymphocytes # (Manual) 0.9 L Monocytes # (Manual) 1.4 H 0.9 H PT INR APTT Fibrinogen D-Dimer ABG pH POC ABG pCO2 POC ABG pO2 ABG pO2 ABG HCO3 ABG Base Excess ABG Hemoglobin ABG Oxyhemoglobin ABG Sodium ABG Potassium ABG Chloride ABG Glucose VBG pH Oxyhemoglobin Carboxyhemoglobin Sodium Potassium Chloride 109.9 H Carbon Dioxide 17 L BUN Creatinine Glucose POC Glucose Random Insulin C-Peptide Lactic Acid Calcium Ionized Calcium Phosphorus Magnesium AST ALT Alkaline Phosphatase Lactate Dehydrogenase NT-Pro-B Natriuret Pep Total Protein Albumin Arterial Blood Glucose Arterial Blood Ionized Calcium Urine WBC (Auto) Vancomycin Trough Phenytoin Crossmatch 10/15/20 10/16/20 10/17/20 05:50 11:57 04:57 WBC 15.2 H RBC 3.43 L Hgb Hct MCV MCH MCHC RDW 18.1 H Plt Count Lymph % (Auto) [place] % (Auto) Lymph # (Auto) [place] # (Auto) Baso # (Auto) Seg Neutrophils % Seg Neuts % (Manual) Lymphocytes % (Manual) Monocytes % (Manual) Nucleated RBC % Seg Neutrophils # Seg Neutrophils # Man Lymphocytes # (Manual) Monocytes # (Manual) PT INR APTT Fibrinogen D-Dimer ABG pH POC ABG pCO2 POC ABG pO2 ABG pO2 ABG HCO3 ABG Base Excess ABG Hemoglobin ABG Oxyhemoglobin ABG Sodium ABG Potassium ABG Chloride ABG Glucose VBG pH Oxyhemoglobin Carboxyhemoglobin Sodium Potassium Chloride 110.3 H Carbon Dioxide 18 L BUN Creatinine Glucose 105 H POC Glucose 111 H Random Insulin C-Peptide Lactic Acid Calcium 8.3 L Ionized Calcium Phosphorus Magnesium AST ALT Alkaline Phosphatase Lactate Dehydrogenase NT-Pro-B Natriuret Pep Total Protein Albumin Arterial Blood Glucose Arterial Blood Ionized Calcium Urine WBC (Auto) Vancomycin Trough Phenytoin Crossmatch 10/17/20 10/17/20 10/18/20 05:25 21:16 01:31 WBC RBC Hgb Hct MCV MCH MCHC RDW Plt Count Lymph % (Auto) [place] % (Auto) Lymph # (Auto) [place] # (Auto) Baso # (Auto) Seg Neutrophils % Seg Neuts % (Manual) Lymphocytes % (Manual) Monocytes % (Manual) Nucleated RBC % Seg Neutrophils # Seg Neutrophils # Man Lymphocytes # (Manual) Monocytes # (Manual) PT INR APTT Fibrinogen D-Dimer ABG pH POC ABG pCO2 POC ABG pO2 ABG pO2 ABG HCO3 ABG Base Excess ABG Hemoglobin ABG Oxyhemoglobin ABG Sodium ABG Potassium ABG Chloride ABG Glucose VBG pH Oxyhemoglobin Carboxyhemoglobin Sodium Potassium Chloride Carbon Dioxide BUN Creatinine Glucose POC Glucose 107 H 106 H 119 H Random Insulin C-Peptide Lactic Acid Calcium Ionized Calcium Phosphorus Magnesium AST ALT Alkaline Phosphatase Lactate Dehydrogenase NT-Pro-B Natriuret Pep Total Protein Albumin Arterial Blood Glucose Arterial Blood Ionized Calcium Urine WBC (Auto) Vancomycin Trough Phenytoin Crossmatch 10/18/20 10/18/20 10/19/20 05:45 11:23 01:14 WBC RBC Hgb Hct MCV MCH MCHC RDW Plt Count Lymph % (Auto) [place] % (Auto) Lymph # (Auto) [place] # (Auto) Baso # (Auto) Seg Neutrophils % Seg Neuts % (Manual) Lymphocytes % (Manual) Monocytes % (Manual) Nucleated RBC % Seg Neutrophils # Seg Neutrophils # Man Lymphocytes # (Manual) Monocytes # (Manual) PT INR APTT Fibrinogen D-Dimer ABG pH POC ABG pCO2 POC ABG pO2 ABG pO2 ABG HCO3 ABG Base Excess ABG Hemoglobin ABG Oxyhemoglobin ABG Sodium ABG Potassium ABG Chloride ABG Glucose VBG pH Oxyhemoglobin Carboxyhemoglobin Sodium Potassium Chloride Carbon Dioxide BUN Creatinine Glucose POC Glucose 106 H 115 H 108 H Random Insulin C-Peptide Lactic Acid Calcium Ionized Calcium Phosphorus Magnesium AST ALT Alkaline Phosphatase Lactate Dehydrogenase NT-Pro-B Natriuret Pep Total Protein Albumin Arterial Blood Glucose Arterial Blood Ionized Calcium Urine WBC (Auto) Vancomycin Trough Phenytoin Crossmatch 10/19/20 10/20/20 10/20/20 09:57 05:40 07:59 WBC RBC Hgb Hct MCV MCH MCHC RDW Plt Count Lymph % (Auto) [place] % (Auto) Lymph # (Auto) [place] # (Auto) Baso # (Auto) Seg Neutrophils % Seg Neuts % (Manual) Lymphocytes % (Manual) Monocytes % (Manual) Nucleated RBC % Seg Neutrophils # Seg Neutrophils # Man Lymphocytes # (Manual) Monocytes # (Manual) PT INR APTT Fibrinogen D-Dimer ABG pH POC ABG pCO2 POC ABG pO2 ABG pO2 ABG HCO3 ABG Base Excess ABG Hemoglobin ABG Oxyhemoglobin ABG Sodium ABG Potassium ABG Chloride ABG Glucose VBG pH Oxyhemoglobin Carboxyhemoglobin Sodium Potassium Chloride Carbon Dioxide BUN Creatinine Glucose 106 H POC Glucose 122 H 109 H Random Insulin C-Peptide Lactic Acid Calcium Ionized Calcium Phosphorus Magnesium AST ALT Alkaline Phosphatase Lactate Dehydrogenase NT-Pro-B Natriuret Pep Total Protein Albumin Arterial Blood Glucose Arterial Blood Ionized Calcium Urine WBC (Auto) Vancomycin Trough Phenytoin Crossmatch 10/20/20 10/20/20 10/21/20 16:52 16:52 13:54 WBC 18.8 H 17.0 H RBC Hgb Hct MCV MCH MCHC RDW 17.7 H 17.8 H Plt Count 547 H 544 H Lymph % (Auto) 11.2 L [place] % (Auto) 8.1 H Lymph # (Auto) [place] # (Auto) 1.5 H Baso # (Auto) 0.2 H Seg Neutrophils % 78.8 H Seg Neuts % (Manual) Lymphocytes % (Manual) Monocytes % (Manual) Nucleated RBC % Seg Neutrophils # 14.8 H Seg Neutrophils # Man Lymphocytes # (Manual) Monocytes # (Manual) PT INR APTT Fibrinogen D-Dimer ABG pH POC ABG pCO2 POC ABG pO2 ABG pO2 ABG HCO3 ABG Base Excess ABG Hemoglobin ABG Oxyhemoglobin ABG Sodium ABG Potassium ABG Chloride ABG Glucose VBG pH Oxyhemoglobin Carboxyhemoglobin Sodium Potassium Chloride Carbon Dioxide BUN Creatinine Glucose POC Glucose Random Insulin C-Peptide Lactic Acid Calcium Ionized Calcium Phosphorus Magnesium AST ALT Alkaline Phosphatase Lactate Dehydrogenase NT-Pro-B Natriuret Pep Total Protein Albumin Arterial Blood Glucose Arterial Blood Ionized Calcium Urine WBC (Auto) Vancomycin Trough 34.5 H Phenytoin Crossmatch 10/21/20 10/22/20 10/23/20 13:54 07:26 05:34 WBC 18.7 H 13.0 H RBC 3.64 L 3.50 L Hgb Hct 30.0 L MCV MCH MCHC 35 H RDW 17.7 H 17.6 H Plt Count 502 H 503 H Lymph % (Auto) [place] % (Auto) Lymph # (Auto) [place] # (Auto) Baso # (Auto) Seg Neutrophils % Seg Neuts % (Manual) Lymphocytes % (Manual) Monocytes % (Manual) Nucleated RBC % Seg Neutrophils # Seg Neutrophils # Man Lymphocytes # (Manual) Monocytes # (Manual) PT INR APTT Fibrinogen D-Dimer ABG pH POC ABG pCO2 POC ABG pO2 ABG pO2 ABG HCO3 ABG Base Excess ABG Hemoglobin ABG Oxyhemoglobin ABG Sodium ABG Potassium ABG Chloride ABG Glucose VBG pH Oxyhemoglobin Carboxyhemoglobin Sodium 136 L Potassium Chloride Carbon Dioxide BUN Creatinine Glucose 120 H POC Glucose Random Insulin C-Peptide Lactic Acid Calcium Ionized Calcium Phosphorus Magnesium AST ALT Alkaline Phosphatase Lactate Dehydrogenase NT-Pro-B Natriuret Pep Total Protein Albumin Arterial Blood Glucose Arterial Blood Ionized Calcium Urine WBC (Auto) Vancomycin Trough Phenytoin Crossmatch 10/23/20 10/26/20 10/27/20 05:34 10:30 07:53 WBC 13.6 H RBC 3.38 L Hgb 10.0 L Hct 28.8 L MCV MCH MCHC 35 H RDW 17.6 H Plt Count Lymph % (Auto) [place] % (Auto) Lymph # (Auto) [place] # (Auto) Baso # (Auto) Seg Neutrophils % Seg Neuts % (Manual) Lymphocytes % (Manual) Monocytes % (Manual) Nucleated RBC % Seg Neutrophils # Seg Neutrophils # Man Lymphocytes # (Manual) Monocytes # (Manual) PT INR APTT Fibrinogen D-Dimer ABG pH 7.459 H POC ABG pCO2 POC ABG pO2 ABG pO2 112.2 H ABG HCO3 ABG Base Excess ABG Hemoglobin ABG Oxyhemoglobin ABG Sodium ABG Potassium ABG Chloride ABG Glucose VBG pH Oxyhemoglobin Carboxyhemoglobin Sodium 135 L Potassium Chloride Carbon Dioxide BUN Creatinine Glucose 105 H POC Glucose Random Insulin C-Peptide Lactic Acid Calcium Ionized Calcium Phosphorus Magnesium AST ALT Alkaline Phosphatase Lactate Dehydrogenase NT-Pro-B Natriuret Pep Total Protein Albumin Arterial Blood Glucose Arterial Blood Ionized Calcium Urine WBC (Auto) Vancomycin Trough Phenytoin Crossmatch 10/27/20 10/27/20 10/28/20 07:53 11:31 05:19 WBC RBC Hgb Hct MCV MCH MCHC RDW Plt Count Lymph % (Auto) [place] % (Auto) Lymph # (Auto) [place] # (Auto) Baso # (Auto) Seg Neutrophils % Seg Neuts % (Manual) Lymphocytes % (Manual) Monocytes % (Manual) Nucleated RBC % Seg Neutrophils # Seg Neutrophils # Man Lymphocytes # (Manual) Monocytes # (Manual) PT INR APTT Fibrinogen D-Dimer ABG pH POC ABG pCO2 POC ABG pO2 ABG pO2 ABG HCO3 ABG Base Excess ABG Hemoglobin ABG Oxyhemoglobin ABG Sodium ABG Potassium ABG Chloride ABG Glucose VBG pH Oxyhemoglobin Carboxyhemoglobin Sodium Potassium Chloride Carbon Dioxide BUN 20 H Creatinine Glucose 112 H POC Glucose 113 H 112 H Random Insulin C-Peptide Lactic Acid Calcium Ionized Calcium Phosphorus Magnesium AST 83 H ALT Alkaline Phosphatase Lactate Dehydrogenase NT-Pro-B Natriuret Pep Total Protein Albumin 3.8 L Arterial Blood Glucose Arterial Blood Ionized Calcium Urine WBC (Auto) Vancomycin Trough Phenytoin Crossmatch 10/29/20 10/29/20 10/29/20 07:56 07:56 11:37 WBC 13.6 H RBC Hgb Hct MCV MCH MCHC RDW 17.0 H Plt Count Lymph % (Auto) [place] % (Auto) Lymph # (Auto) [place] # (Auto) Baso # (Auto) Seg Neutrophils % Seg Neuts % (Manual) 80.0 H Lymphocytes % (Manual) Monocytes % (Manual) Nucleated RBC % Seg Neutrophils # Seg Neutrophils # Man 10.9 H Lymphocytes # (Manual) Monocytes # (Manual) PT INR APTT Fibrinogen D-Dimer ABG pH POC ABG pCO2 POC ABG pO2 ABG pO2 ABG HCO3 ABG Base Excess ABG Hemoglobin ABG Oxyhemoglobin ABG Sodium ABG Potassium ABG Chloride ABG Glucose VBG pH Oxyhemoglobin Carboxyhemoglobin Sodium Potassium Chloride Carbon Dioxide BUN Creatinine Glucose POC Glucose 108 H Random Insulin C-Peptide Lactic Acid Calcium Ionized Calcium Phosphorus 4.70 H Magnesium AST ALT Alkaline Phosphatase Lactate Dehydrogenase NT-Pro-B Natriuret Pep Total Protein Albumin Arterial Blood Glucose Arterial Blood Ionized Calcium Urine WBC (Auto) Vancomycin Trough Phenytoin Crossmatch 10/29/20 10/30/20 10/30/20 13:32 12:11 17:19 WBC RBC Hgb Hct MCV MCH MCHC RDW Plt Count Lymph % (Auto) [place] % (Auto) Lymph # (Auto) [place] # (Auto) Baso # (Auto) Seg Neutrophils % Seg Neuts % (Manual) Lymphocytes % (Manual) Monocytes % (Manual) Nucleated RBC % Seg Neutrophils # Seg Neutrophils # Man Lymphocytes # (Manual) Monocytes # (Manual) PT INR APTT Fibrinogen D-Dimer ABG pH POC ABG pCO2 POC ABG pO2 ABG pO2 ABG HCO3 ABG Base Excess ABG Hemoglobin ABG Oxyhemoglobin ABG Sodium ABG Potassium ABG Chloride ABG Glucose VBG pH Oxyhemoglobin Carboxyhemoglobin Sodium Potassium Chloride Carbon Dioxide BUN Creatinine Glucose POC Glucose 108 H 106 H 107 H Random Insulin C-Peptide Lactic Acid Calcium Ionized Calcium Phosphorus Magnesium AST ALT Alkaline Phosphatase Lactate Dehydrogenase NT-Pro-B Natriuret Pep Total Protein Albumin Arterial Blood Glucose Arterial Blood Ionized Calcium Urine WBC (Auto) Vancomycin Trough Phenytoin Crossmatch 10/31/20 10/31/20 11/01/20 03:20 05:43 04:55 WBC RBC Hgb Hct MCV MCH MCHC RDW Plt Count Lymph % (Auto) [place] % (Auto) Lymph # (Auto) [place] # (Auto) Baso # (Auto) Seg Neutrophils % Seg Neuts % (Manual) Lymphocytes % (Manual) Monocytes % (Manual) Nucleated RBC % Seg Neutrophils # Seg Neutrophils # Man Lymphocytes # (Manual) Monocytes # (Manual) PT INR APTT Fibrinogen D-Dimer ABG pH POC ABG pCO2 POC ABG pO2 ABG pO2 ABG HCO3 ABG Base Excess ABG Hemoglobin ABG Oxyhemoglobin ABG Sodium ABG Potassium ABG Chloride ABG Glucose VBG pH Oxyhemoglobin Carboxyhemoglobin Sodium Potassium Chloride Carbon Dioxide BUN Creatinine Glucose POC Glucose 108 H 115 H 108 H Random Insulin C-Peptide Lactic Acid Calcium Ionized Calcium Phosphorus Magnesium AST ALT Alkaline Phosphatase Lactate Dehydrogenase NT-Pro-B Natriuret Pep Total Protein Albumin Arterial Blood Glucose Arterial Blood Ionized Calcium Urine WBC (Auto) Vancomycin Trough Phenytoin Crossmatch 11/01/20 11/01/20 11/01/20 05:01 16:47 21:36 WBC RBC Hgb Hct MCV MCH MCHC RDW Plt Count Lymph % (Auto) [place] % (Auto) Lymph # (Auto) [place] # (Auto) Baso # (Auto) Seg Neutrophils % Seg Neuts % (Manual) Lymphocytes % (Manual) Monocytes % (Manual) Nucleated RBC % Seg Neutrophils # Seg Neutrophils # Man Lymphocytes # (Manual) Monocytes # (Manual) PT INR APTT Fibrinogen D-Dimer ABG pH POC ABG pCO2 POC ABG pO2 ABG pO2 ABG HCO3 ABG Base Excess ABG Hemoglobin ABG Oxyhemoglobin ABG Sodium ABG Potassium ABG Chloride ABG Glucose VBG pH Oxyhemoglobin Carboxyhemoglobin Sodium 135 L Potassium Chloride Carbon Dioxide BUN Creatinine Glucose POC Glucose 116 H 112 H Random Insulin C-Peptide Lactic Acid Calcium Ionized Calcium Phosphorus Magnesium AST 93 H ALT Alkaline Phosphatase 132 H Lactate Dehydrogenase NT-Pro-B Natriuret Pep Total Protein Albumin 3.6 L Arterial Blood Glucose Arterial Blood Ionized Calcium Urine WBC (Auto) Vancomycin Trough Phenytoin Crossmatch 11/02/20 11/02/20 11/02/20 17:45 19:19 19:19 WBC RBC Hgb Hct MCV MCH MCHC RDW Plt Count Lymph % (Auto) [place] % (Auto) Lymph # (Auto) [place] # (Auto) Baso # (Auto) Seg Neutrophils % Seg Neuts % (Manual) Lymphocytes % (Manual) Monocytes % (Manual) Nucleated RBC % Seg Neutrophils # Seg Neutrophils # Man Lymphocytes # (Manual) Monocytes # (Manual) PT INR APTT Fibrinogen D-Dimer ABG pH POC ABG pCO2 POC ABG pO2 ABG pO2 ABG HCO3 ABG Base Excess ABG Hemoglobin ABG Oxyhemoglobin ABG Sodium ABG Potassium ABG Chloride ABG Glucose VBG pH Oxyhemoglobin Carboxyhemoglobin Sodium Potassium Chloride Carbon Dioxide BUN Creatinine Glucose POC Glucose 107 H Random Insulin 43.2 H C-Peptide 6.23 H Lactic Acid Calcium Ionized Calcium Phosphorus Magnesium AST ALT Alkaline Phosphatase Lactate Dehydrogenase NT-Pro-B Natriuret Pep Total Protein Albumin Arterial Blood Glucose Arterial Blood Ionized Calcium Urine WBC (Auto) Vancomycin Trough Phenytoin Crossmatch 11/03/20 11/04/20 11/04/20 21:49 05:00 05:00 WBC 13.8 H RBC Hgb Hct MCV MCH MCHC RDW 16.6 H Plt Count Lymph % (Auto) 11.8 L [place] % (Auto) 11.0 H Lymph # (Auto) [place] # (Auto) 1.5 H Baso # (Auto) Seg Neutrophils % 75.1 H Seg Neuts % (Manual) Lymphocytes % (Manual) Monocytes % (Manual) Nucleated RBC % Seg Neutrophils # 10.4 H Seg Neutrophils # Man Lymphocytes # (Manual) Monocytes # (Manual) PT INR APTT Fibrinogen D-Dimer ABG pH POC ABG pCO2 POC ABG pO2 ABG pO2 ABG HCO3 ABG Base Excess ABG Hemoglobin ABG Oxyhemoglobin ABG Sodium ABG Potassium ABG Chloride ABG Glucose VBG pH Oxyhemoglobin Carboxyhemoglobin Sodium Potassium Chloride Carbon Dioxide BUN Creatinine Glucose 112 H POC Glucose 109 H Random Insulin C-Peptide Lactic Acid Calcium Ionized Calcium Phosphorus Magnesium AST 90 H ALT Alkaline Phosphatase Lactate Dehydrogenase NT-Pro-B Natriuret Pep Total Protein Albumin 3.8 L Arterial Blood Glucose Arterial Blood Ionized Calcium Urine WBC (Auto) Vancomycin Trough Phenytoin Crossmatch 11/04/20 11/04/20 11/05/20 06:03 23:47 07:47 WBC RBC Hgb Hct MCV MCH MCHC RDW Plt Count Lymph % (Auto) [place] % (Auto) Lymph # (Auto) [place] # (Auto) Baso # (Auto) Seg Neutrophils % Seg Neuts % (Manual) Lymphocytes % (Manual) Monocytes % (Manual) Nucleated RBC % Seg Neutrophils # Seg Neutrophils # Man Lymphocytes # (Manual) Monocytes # (Manual) PT INR APTT Fibrinogen D-Dimer ABG pH POC ABG pCO2 POC ABG pO2 ABG pO2 ABG HCO3 ABG Base Excess ABG Hemoglobin ABG Oxyhemoglobin ABG Sodium ABG Potassium ABG Chloride ABG Glucose VBG pH Oxyhemoglobin Carboxyhemoglobin Sodium Potassium Chloride Carbon Dioxide BUN Creatinine Glucose POC Glucose 107 H 121 H 111 H Random Insulin C-Peptide Lactic Acid Calcium Ionized Calcium Phosphorus Magnesium AST ALT Alkaline Phosphatase Lactate Dehydrogenase NT-Pro-B Natriuret Pep Total Protein Albumin Arterial Blood Glucose Arterial Blood Ionized Calcium Urine WBC (Auto) Vancomycin Trough Phenytoin Crossmatch 11/05/20 11/06/20 11/06/20 23:24 17:04 23:36 WBC RBC Hgb Hct MCV MCH MCHC RDW Plt Count Lymph % (Auto) [place] % (Auto) Lymph # (Auto) [place] # (Auto) Baso # (Auto) Seg Neutrophils % Seg Neuts % (Manual) Lymphocytes % (Manual) Monocytes % (Manual) Nucleated RBC % Seg Neutrophils # Seg Neutrophils # Man Lymphocytes # (Manual) Monocytes # (Manual) PT INR APTT Fibrinogen D-Dimer ABG pH POC ABG pCO2 POC ABG pO2 ABG pO2 ABG HCO3 ABG Base Excess ABG Hemoglobin ABG Oxyhemoglobin ABG Sodium ABG Potassium ABG Chloride ABG Glucose VBG pH Oxyhemoglobin Carboxyhemoglobin Sodium Potassium Chloride Carbon Dioxide BUN Creatinine Glucose POC Glucose 111 H 112 H 108 H Random Insulin C-Peptide Lactic Acid Calcium Ionized Calcium Phosphorus Magnesium AST ALT Alkaline Phosphatase Lactate Dehydrogenase NT-Pro-B Natriuret Pep Total Protein Albumin Arterial Blood Glucose Arterial Blood Ionized Calcium Urine WBC (Auto) Vancomycin Trough Phenytoin Crossmatch 11/07/20 11/07/20 11/07/20 03:33 04:44 04:44 WBC RBC Hgb Hct MCV MCH MCHC RDW 16.6 H Plt Count Lymph % (Auto) [place] % (Auto) 13.1 H Lymph # (Auto) [place] # (Auto) 1.3 H Baso # (Auto) Seg Neutrophils % Seg Neuts % (Manual) Lymphocytes % (Manual) Monocytes % (Manual) Nucleated RBC % Seg Neutrophils # Seg Neutrophils # Man Lymphocytes # (Manual) Monocytes # (Manual) PT INR APTT Fibrinogen D-Dimer ABG pH POC ABG pCO2 POC ABG pO2 ABG pO2 ABG HCO3 ABG Base Excess ABG Hemoglobin ABG Oxyhemoglobin ABG Sodium ABG Potassium ABG Chloride ABG Glucose VBG pH Oxyhemoglobin Carboxyhemoglobin Sodium Potassium Chloride Carbon Dioxide BUN Creatinine Glucose 103 H POC Glucose 109 H Random Insulin C-Peptide Lactic Acid Calcium Ionized Calcium Phosphorus 5.30 H Magnesium AST ALT Alkaline Phosphatase Lactate Dehydrogenase NT-Pro-B Natriuret Pep Total Protein Albumin Arterial Blood Glucose Arterial Blood Ionized Calcium Urine WBC (Auto) Vancomycin Trough Phenytoin Crossmatch 11/07/20 11/07/20 11/08/20 15:58 23:46 07:30 WBC RBC Hgb Hct MCV MCH MCHC RDW Plt Count Lymph % (Auto) [place] % (Auto) Lymph # (Auto) [place] # (Auto) Baso # (Auto) Seg Neutrophils % Seg Neuts % (Manual) Lymphocytes % (Manual) Monocytes % (Manual) Nucleated RBC % Seg Neutrophils # Seg Neutrophils # Man Lymphocytes # (Manual) Monocytes # (Manual) PT INR APTT Fibrinogen D-Dimer ABG pH POC ABG pCO2 POC ABG pO2 ABG pO2 ABG HCO3 ABG Base Excess ABG Hemoglobin ABG Oxyhemoglobin ABG Sodium ABG Potassium ABG Chloride ABG Glucose VBG pH Oxyhemoglobin Carboxyhemoglobin Sodium Potassium Chloride Carbon Dioxide BUN Creatinine Glucose POC Glucose 108 H 106 H 109 H Random Insulin C-Peptide Lactic Acid Calcium Ionized Calcium Phosphorus Magnesium AST ALT Alkaline Phosphatase Lactate Dehydrogenase NT-Pro-B Natriuret Pep Total Protein Albumin Arterial Blood Glucose Arterial Blood Ionized Calcium Urine WBC (Auto) Vancomycin Trough Phenytoin Crossmatch 11/08/20 11/08/20 11/09/20 11:48 23:32 17:10 WBC RBC Hgb Hct MCV MCH MCHC RDW Plt Count Lymph % (Auto) [place] % (Auto) Lymph # (Auto) [place] # (Auto) Baso # (Auto) Seg Neutrophils % Seg Neuts % (Manual) Lymphocytes % (Manual) Monocytes % (Manual) Nucleated RBC % Seg Neutrophils # Seg Neutrophils # Man Lymphocytes # (Manual) Monocytes # (Manual) PT INR APTT Fibrinogen D-Dimer ABG pH POC ABG pCO2 POC ABG pO2 ABG pO2 ABG HCO3 ABG Base Excess ABG Hemoglobin ABG Oxyhemoglobin ABG Sodium ABG Potassium ABG Chloride ABG Glucose VBG pH Oxyhemoglobin Carboxyhemoglobin Sodium Potassium Chloride Carbon Dioxide BUN Creatinine Glucose POC Glucose 110 H 116 H 112 H Random Insulin C-Peptide Lactic Acid Calcium Ionized Calcium Phosphorus Magnesium AST ALT Alkaline Phosphatase Lactate Dehydrogenase NT-Pro-B Natriuret Pep Total Protein Albumin Arterial Blood Glucose Arterial Blood Ionized Calcium Urine WBC (Auto) Vancomycin Trough Phenytoin Crossmatch 11/09/20 11/10/20 11/10/20 21:42 05:49 07:17 WBC RBC Hgb Hct MCV MCH MCHC RDW Plt Count Lymph % (Auto) [place] % (Auto) Lymph # (Auto) [place] # (Auto) Baso # (Auto) Seg Neutrophils % Seg Neuts % (Manual) Lymphocytes % (Manual) Monocytes % (Manual) Nucleated RBC % Seg Neutrophils # Seg Neutrophils # Man Lymphocytes # (Manual) Monocytes # (Manual) PT INR APTT Fibrinogen D-Dimer ABG pH POC ABG pCO2 POC ABG pO2 ABG pO2 ABG HCO3 ABG Base Excess ABG Hemoglobin ABG Oxyhemoglobin ABG Sodium ABG Potassium ABG Chloride ABG Glucose VBG pH Oxyhemoglobin Carboxyhemoglobin Sodium Potassium Chloride Carbon Dioxide BUN Creatinine Glucose POC Glucose 110 H 108 H 111 H Random Insulin C-Peptide Lactic Acid Calcium Ionized Calcium Phosphorus Magnesium AST ALT Alkaline Phosphatase Lactate Dehydrogenase NT-Pro-B Natriuret Pep Total Protein Albumin Arterial Blood Glucose Arterial Blood Ionized Calcium Urine WBC (Auto) Vancomycin Trough Phenytoin Crossmatch 11/10/20 11/11/20 11/11/20 20:36 04:58 11:56 WBC RBC Hgb Hct MCV MCH MCHC RDW Plt Count Lymph % (Auto) [place] % (Auto) Lymph # (Auto) [place] # (Auto) Baso # (Auto) Seg Neutrophils % Seg Neuts % (Manual) Lymphocytes % (Manual) Monocytes % (Manual) Nucleated RBC % Seg Neutrophils # Seg Neutrophils # Man Lymphocytes # (Manual) Monocytes # (Manual) PT INR APTT Fibrinogen D-Dimer ABG pH POC ABG pCO2 POC ABG pO2 ABG pO2 ABG HCO3 ABG Base Excess ABG Hemoglobin ABG Oxyhemoglobin ABG Sodium ABG Potassium ABG Chloride ABG Glucose VBG pH Oxyhemoglobin Carboxyhemoglobin Sodium Potassium Chloride Carbon Dioxide BUN Creatinine Glucose POC Glucose 111 H 109 H 109 H Random Insulin C-Peptide Lactic Acid Calcium Ionized Calcium Phosphorus Magnesium AST ALT Alkaline Phosphatase Lactate Dehydrogenase NT-Pro-B Natriuret Pep Total Protein Albumin Arterial Blood Glucose Arterial Blood Ionized Calcium Urine WBC (Auto) Vancomycin Trough Phenytoin Crossmatch 11/11/20 11/11/20 11/11/20 13:50 13:50 15:50 WBC RBC Hgb Hct MCV MCH MCHC RDW Plt Count Lymph % (Auto) [place] % (Auto) Lymph # (Auto) [place] # (Auto) Baso # (Auto) Seg Neutrophils % Seg Neuts % (Manual) Lymphocytes % (Manual) Monocytes % (Manual) Nucleated RBC % Seg Neutrophils # Seg Neutrophils # Man Lymphocytes # (Manual) Monocytes # (Manual) PT INR APTT Fibrinogen D-Dimer 1974.47 H ABG pH POC ABG pCO2 POC ABG pO2 ABG pO2 ABG HCO3 ABG Base Excess ABG Hemoglobin ABG Oxyhemoglobin ABG Sodium ABG Potassium ABG Chloride ABG Glucose VBG pH Oxyhemoglobin Carboxyhemoglobin Sodium Potassium Chloride Carbon Dioxide BUN Creatinine Glucose POC Glucose 107 H Random Insulin C-Peptide Lactic Acid Calcium Ionized Calcium Phosphorus Magnesium AST ALT Alkaline Phosphatase Lactate Dehydrogenase NT-Pro-B Natriuret Pep Total Protein Albumin Arterial Blood Glucose Arterial Blood Ionized Calcium Urine WBC (Auto) > 182.0 H Vancomycin Trough Phenytoin Crossmatch 11/11/20 11/12/20 23:17 11:33 WBC RBC Hgb Hct MCV MCH MCHC RDW Plt Count Lymph % (Auto) [place] % (Auto) Lymph # (Auto) [place] # (Auto) Baso # (Auto) Seg Neutrophils % Seg Neuts % (Manual) Lymphocytes % (Manual) Monocytes % (Manual) Nucleated RBC % Seg Neutrophils # Seg Neutrophils # Man Lymphocytes # (Manual) Monocytes # (Manual) PT INR APTT Fibrinogen D-Dimer ABG pH POC ABG pCO2 POC ABG pO2 ABG pO2 ABG HCO3 ABG Base Excess ABG Hemoglobin ABG Oxyhemoglobin ABG Sodium ABG Potassium ABG Chloride ABG Glucose VBG pH Oxyhemoglobin Carboxyhemoglobin Sodium Potassium Chloride Carbon Dioxide BUN Creatinine Glucose POC Glucose 119 H 111 H Random Insulin C-Peptide Lactic Acid Calcium Ionized Calcium Phosphorus Magnesium AST ALT Alkaline Phosphatase Lactate Dehydrogenase NT-Pro-B Natriuret Pep Total Protein Albumin Arterial Blood Glucose Arterial Blood Ionized Calcium Urine WBC (Auto) Vancomycin Trough Phenytoin Crossmatch
[2020-11-12] MEDS: HYDROCORTISONE SOD SUCC 100 MG/2 ML VIAL IV SCH ×2 (14:12→21:01)
[2020-11-12] MEDS: cefTRIAXone/NS 1 GM/50 ML 1 GM/50 ML BAG IV SCH (14:13)
[2020-11-13] MEDS: hydrALAZINE 25 MG TAB PO SCH ×3 (05:10→22:47)
[2020-11-13] MEDS: HYDROCORTISONE SOD SUCC 100 MG/2 ML VIAL IV SCH ×3 (05:10→22:47)
--- NOTE | 2020-11-13 08:57 | Progress Note ---
Assessment and Plan - Patient Problems (1) Encephalopathy Current Visit: Yes Status: Acute Plan to address problem: no neurological improvements awaiting placement in assisted facility (2) Fever Current Visit: Yes Status: Acute Subjective - Subjective Principal diagnosis: Eclampsia/HELLP Syndrome, ADOLPH, DIC; s/p , s/p supracervical hyst Interval history: 30y/o POD #42 s/p supracervical hysterectomy for eclampsia and DIC. Patient remains unresponsive. Tracheostomy and PEG tube in place. Currently awaiting placement for terminal [facility] operator care facility Objective - Vital Signs Latest vital signs: Vital Signs Temp Pulse Resp BP Pulse Ox Pulse Ox 11/13/20 08:00 97.5 F L 11/13/20 07:00 104 H 18 157/78 100 11/13/20 06:31 93 H 11 L 157/76 100 11/13/20 06:00 94 H 20 127/69 100 11/13/20 05:38 100 100 11/13/20 05:30 100 H 22 133/67 100 11/13/20 05:10 101 H 137/65 11/13/20 05:00 94 H 13 137/65 100 11/13/20 04:30 111 H 16 141/59 100 11/13/20 04:00 98.8 F 116 H 18 139/61 100 11/13/20 03:30 105 H 21 128/65 100 11/13/20 03:00 105 H 18 140/56 100 11/13/20 02:30 116 H 20 140/56 100 11/13/20 02:00 118 H 20 139/56 100 11/13/20 01:30 118 H 15 169/81 100 11/13/20 01:00 119 H 15 150/69 100 11/13/20 00:31 118 H 21 153/73 100 11/13/20 00:01 113 H 19 153/40 100 11/13/20 00:00 98.4 F 112 H 11/12/20 23:32 110 H 25 H 124/79 100 11/12/20 23:30 112 H 19 145/85 100 11/12/20 23:26 107 H 28 H 133/66 100 11/12/20 23:00 112 H 21 124/79 99 11/12/20 22:30 105 H 23 133/66 99 11/12/20 22:01 107 H 25 H 127/55 100 01/28/21 21:30 109 H 18 144/72 100 11/12/20 21:00 111 H 17 143/72 100 11/12/20 20:57 113 H 133/79 11/12/20 20:30 114 H 23 133/79 100 11/12/20 20:15 100 11/12/20 20:01 118 H 16 126/71 100 11/12/20 20:00 97.8 F 115 H 11/12/20 19:30 109 H 17 133/76 100 11/12/20 19:00 90 18 143/77 100 11/12/20 18:30 87 20 140/62 100 11/12/20 18:00 104 H 21 127/66 100 11/12/20 17:30 102 H 21 122/56 99 11/12/20 17:00 98 H 14 141/65 99 11/12/20 16:30 86 18 128/66 100 11/12/20 16:00 89 22 136/57 100 11/12/20 15:30 95 H 28 H 144/54 100 11/12/20 15:00 96 H 27 H 149/68 100 11/12/20 14:31 94 H 23 149/68 100 11/12/20 14:12 89 152/80 11/12/20 14:00 90 19 152/80 100 11/12/20 13:31 98 H 25 H 148/67 100 11/12/20 13:00 97 H 24 152/62 100 11/12/20 12:30 90 24 140/62 100 11/12/20 12:00 99.0 F 85 18 146/67 100 11/12/20 11:31 84 18 154/60 100 11/12/20 11:00 96 H 24 166/76 100 11/12/20 10:31 100 H 26 H 169/74 100 11/12/20 10:00 97 H 21 163/70 100 11/12/20 09:30 90 19 154/67 100 11/12/20 09:00 93 H 22 158/71 100 Intake and Output 11/12/20 11/13/20 11/13/20 22:59 06:59 14:59 Intake Total 1490 620 60 Output Total 1700 1050 Balance -210 -430 60 Intake: IV 1050 D10w 1,000 ml @ 75 mls/hr 1000 IV DIRECT ERINN Rx#: [id number] ROCEPHIN/NS 1 GM/50 ML 1 50 gm In 50 ml @ 100 mls/hr IV Q24H [facility] Rx#:[id number] Intake, Free Water 200 200 Tube Feeding 240 420 60 Output: Urine 1700 1050 Indwelling Catheter 1700 1050 Other: Total, Intake Amount 60 60 60 Total, Output Amount 250 350 Voiding Method Indwelling Catheter Indwelling Catheter Weight 104.6 kg - Exam Abdomen: Present: normal appearance, soft Incision: Present: normal, dry - Labs Labs: Abnormal lab results 11/12/20 11/12/20 11/13/20 Range/Units 11:33 22:20 01:52 POC Glucose 111 H 107 H 124 H (70-105) mg/dL
--- NOTE | 2020-11-13 09:14 | Progress Note ---
Assessment and Plan 30 y/o female with Eclampsia, s/p emergent section with DIC, acute respiratory failure and worsening renal function. 11/13/20: Attempt a trial of stress dose steroids to see if this improves sugar levels. I have called CT 3x but no answer. Will go down there and see if they are able to do a CT of the abdomen with pancreas protocol to observe for insulinoma. Continue supportive care and airway maintenance therapy. 11/12/20: Continue D10. I have reached out to an endocrine physician from an outside hospital who is willing to help me with the work up and possible help with diagnosis. 11/11/20: Call labs today about proinuslin. Signed letter for family today. Needs endocrine consult but not available here. 11/10/20: If proinsulin not back by tomorrow will call lab. Once I have all info, will see if I can obtain and endocrine consult via phone to discuss case. Continue supplemental oxygen. Needs PT 11/09/20: Follow up Proinsulin levels. No endocrine consult available here, but will do more research to see if we can find out why she remains D10 dependent. Pulm status is stable. Continue T-piece. Not a candidate for floor given D10 requirement. 11/06/20: No new recs. Will continue to check for outside lab results over the weekend. 11/05/20: Awaiting outside labs to work up hypoglycemia. Will add some PRN albuterol nebs to see if this will help to thin out her secretions. 11/04/20: No changes. No new recs. Awaiting send out labs to help figure out hypoglycemia. 11/03/20: Continue D10. Await send out labs. 11/02/20: Called lab today to ask how to order these send out labs. Continue D10 along with feeds for now. Stopped robinol and no further reports of increased thickness of secretions. given D10 requirement, do not feel comfortable with transition to the floor. 11/01/20: Will stop Robinol as this may be making secretions to thick. Huge risk for mucous plugging given mental state. Continue D10 and waiting on labs from yesterday. LFT's repeated and AST elevated along with alk phos. Both of these were elevated on admission, then resolved and now are elevated again. In current clinical state, not sure what to make of those numbers. They do not help with trying to figure out hypoglycemia and persistent need for D10. Continue IMCU care. 10/31/20: Will order midline for IV team vs peripheral IV's (multiple). Needs access for d10 as we have not been able to figure out why she is so hypoglyemic. Will measure serum insulin levels and C-peptide levels, as well proinsulin. All of these labs are sendouts so will have to call down to ask how to order as they are not coming up in [facility]. Given her requirement for supplemental IV sugar, not a candidate for floor transfer. 10/30/20: Continue step down monitoring for now. If does well the next 24-36 hours, then will consider floor transfer. Really needs to continue PT with PROM. Will speak with CM about options for here now that critical needs are becoming minimal. 10/29/20: Off vent now for 24 hours. Tolerating T-Piece. Will transition to step down for a few days. If does well there, consider transition to floor. Continue PT. Guarded prognosis. 10/28/20: Daily T-piece trials for as long as tolerated. Attempt to push further daily. OT does not do passive range of motion. Per PT note will do p assive range of motion with patient. Guarded prognosis. Hoping to wean off vent and transition to floor. 10/27/20: Continue daily T-piece trials for as long as tolerated. Ok with resting on either PSV or full rate if needed at night but need to strengthen her respiratory muscles. PT/OT if possible. Will transition to step down prior to going to floor to insure stability. 10/26/20: Will obtain ABG today. If good, will attempt on T-piece later. Continue PT/OT. Will speak with CM about possibility of LTACH or nursing facility that can take trached patients. 10/23/20: Daily PSV trials for as long as patient will tolerate. Needs PT/OT consult for passive range of motion. 10/22/20: Will start prolonged PSV trials. Attempt to wean from vent and then transition to floor to see if mental status improves. Continue tube feeds. 10/21/20: Trach and peg placed. No sedation. Restart Lovenox for Upper Ext DVT. Restart feeds when surgery states ok to use PEG. C. Diff treatment per ID. Guarded prognosis. Will be a long term care social worker wean. Hopeful to wean off vent at least and then can transfer to floor. 10/20/20: NPO after midnight. DVT study just read from 10/14 on yesterday [facility] upper ext DVT. Started on Lovenox but need to hold therapy until after surgery. could be source of fevers. No sedation. 10/19/20: Stable BP. Will meet/talk with family at noon over the phone with myself and case management. Need to discuss goals of care and what next steps would be. Patient would need trach and peg and transfer to LTACH if family ok with this. Follow up speciation of GNR's in blood. Has been on Cefepime. Continues therapy for C. Diff. Guarded prognosis. Continue daily PSV trials but not ready for extubation secondary to mental state. 10/18/20: Blood pressure is much better with the addition of meds started on yesterday. Need to have family meeting jesica in regards to goals of care. Continue Daily PSV trials but not ready for extubation. Continue therapy for C. Diff per ID. 10/17/20: CT scan was of no help in regards to fevers. C. Diff is positive and BP now is more uncontrolled despite increasing labetalol. Today will increase to 300 TID. Added TID Hydralazine and added PO lasix given her mild pulmonary htn seen on echo. Spoke with mother over the phone and she requests to come see the patient. Given current circumstances, will allow her to come briefly today and then will speak with her at the bedside. No neurology is available at the [facility] and suspect these will be the majority of her questions. Tolerated PSV briefly yesterday and will do again today but not for extended periods as given her mental state she is not a candidate for extubation. I will also ask the mother about detention care (trach and peg) when she comes today. Overall prognosis is guarded to poor. If oral meds cannot regulate blood pressure, may need Cardene drip. Continue therapy for C. Diff per ID. Subjective Date of service: 11/13/20 Principal diagnosis: Eclampsia/HELLP Syndrome, ADOLPH, DIC; s/p , s/p supracervical hyst Interval history: No acute events. Still relatively hypoglycemic, despite D10 and now the addition of stress dose steroids. Objective Vital Signs - 12hr 11/12/20 11/12/20 11/12/20 21:30 22:01 22:30 Temperature Pulse Rate 109 H 107 H 105 H Respiratory 18 25 H 23 Rate Blood Pressure 144/72 127/55 133/66 O2 Sat by Pulse 100 100 99 Oximetry O2 Sat by Pulse Oximetry [ Assessment] 11/12/20 11/12/20 11/12/20 23:00 23:26 23:30 Temperature Pulse Rate 112 H 107 H 112 H Respiratory 21 28 H 19 Rate Blood Pressure 124/79 133/66 145/85 O2 Sat by Pulse 99 100 100 Oximetry O2 Sat by Pulse Oximetry [ Assessment] 11/12/20 11/13/20 11/13/20 23:32 00:00 00:01 Temperature 98.4 F Pulse Rate 110 H 112 H 113 H Respiratory 25 H 19 Rate Blood Pressure 124/79 153/40 O2 Sat by Pulse 100 100 Oximetry O2 Sat by Pulse Oximetry [ Assessment] 11/13/20 11/13/20 11/13/20 00:31 01:00 01:30 Temperature Pulse Rate 118 H 119 H 118 H Respiratory 21 15 15 Rate Blood Pressure 153/73 150/69 169/81 O2 Sat by Pulse 100 100 100 Oximetry O2 Sat by Pulse Oximetry [ Assessment] 11/13/20 11/13/20 11/13/20 02:00 02:30 03:00 Temperature Pulse Rate 118 H 116 H 105 H Respiratory 20 20 18 Rate Blood Pressure 139/56 140/56 140/56 O2 Sat by Pulse 100 100 100 Oximetry O2 Sat by Pulse Oximetry [ Assessment] 11/13/20 11/13/20 11/13/20 03:30 04:00 04:30 Temperature 98.8 F Pulse Rate 105 H 116 H 111 H Respiratory 21 18 16 Rate Blood Pressure 128/65 139/61 141/59 O2 Sat by Pulse 100 100 100 Oximetry O2 Sat by Pulse Oximetry [ Assessment] 11/13/20 11/13/20 11/13/20 05:00 05:10 05:30 Temperature Pulse Rate 94 H 101 H 100 H Respiratory 13 22 Rate Blood Pressure 137/65 137/65 133/67 O2 Sat by Pulse 100 100 Oximetry O2 Sat by Pulse Oximetry [ Assessment] 11/13/20 11/13/20 11/13/20 05:38 06:00 06:31 Temperature Pulse Rate 94 H 93 H Respiratory 20 11 L Rate Blood Pressure 127/69 157/76 O2 Sat by Pulse 100 100 100 Oximetry O2 Sat by Pulse 100 Oximetry [ Assessment] 11/13/20 11/13/20 07:00 08:00 Temperature 97.5 F L Pulse Rate 104 H Respiratory 18 Rate Blood Pressure 157/78 O2 Sat by Pulse 100 Oximetry O2 Sat by Pulse Oximetry [ Assessment] Constitutional: comatose, other (s/p trach) Eyes: non-icteric ENT: oropharynx moist Neck: other (large in cirumference) Effort: normal Ascultation: Bilateral: clear, diminished breath sounds, rhonchi, other (coarse BS bilaterally) Percussion: Bilateral: not dull Cardiovascular: regular rate and rhythm, other (no mrg) Gastrointestinal: normoactive bowel sounds, soft Extremities: no cyanosis, pink and warm Neurologic: other (unresponsive, not following commands, not tracking) Psychiatric: other (unable to assess) CBC and BMP: 11/07/20 04:44 11/07/20 04:44 ABG, PT/INR, D-dimer: ABG ABG pH 7.459 pH Units (7.350-7.450) H 10/26/20 10:30 POC ABG pCO2 20.7 mmHg (32.0-48.0) L 10/13/20 07:18 ABG pCO2 32.4 mm Hg 10/26/20 10:30 POC ABG pO2 137.9 mmHg (83-108) H 10/13/20 07:18 ABG pO2 112.2 mm Hg (80.0-90.0) H 10/26/20 10:30 POC ABG HCO3 14.8 10/13/20 07:18 ABG O2 Saturation 98.2 % (95.0-99.0) 10/26/20 10:30 PT/INR, D-dimer PT 13.6 Sec. (12.2-14.9) 10/21/20 13:54 INR 1.06 (0.87-1.13) 10/21/20 13:54 D-Dimer 1974.47 ng/mlDDU (0-234) H 11/11/20 13:50 Abnormal lab findings: Abnormal Labs 10/02/20 10/02/20 10/02/20 12:03 12:18 12:18 WBC 14.9 H RBC Hgb 9.1 L Hct MCV MCH 22 L MCHC 28 L RDW 17.6 H Plt Count 102 L Lymph % (Auto) [place] % (Auto) Lymph # (Auto) [place] # (Auto) Baso # (Auto) Seg Neutrophils % Seg Neuts % (Manual) 36.0 L Lymphocytes % (Manual) 49.0 H Monocytes % (Manual) Nucleated RBC % 6.0 H Seg Neutrophils # Seg Neutrophils # Man Lymphocytes # (Manual) 7.3 H Monocytes # (Manual) PT INR APTT Fibrinogen D-Dimer ABG pH POC ABG pCO2 POC ABG pO2 ABG pO2 ABG HCO3 ABG Base Excess ABG Hemoglobin ABG Oxyhemoglobin ABG Sodium ABG Potassium ABG Chloride ABG Glucose VBG pH Oxyhemoglobin Carboxyhemoglobin Sodium 134 L Potassium Chloride Carbon Dioxide 12 L BUN 6 L Creatinine Glucose 390 H POC Glucose 451 H Random Insulin C-Peptide Lactic Acid Calcium Ionized Calcium Phosphorus Magnesium AST 135 H ALT 85 H Alkaline Phosphatase 172 H Lactate Dehydrogenase 641 H NT-Pro-B Natriuret Pep Total Protein 5.4 L Albumin 2.3 L Arterial Blood Glucose Arterial Blood Ionized Calcium Urine WBC (Auto) Vancomycin Trough Phenytoin Crossmatch 10/02/20 10/02/20 10/02/20 12:50 13:05 13:05 WBC 38.6 H RBC Hgb 8.9 L Hct 29.0 L MCV 73 L MCH 22 L MCHC RDW 17.2 H Plt Count Lymph % (Auto) [place] % (Auto) Lymph # (Auto) [place] # (Auto) Baso # (Auto) Seg Neutrophils % Seg Neuts % (Manual) Lymphocytes % (Manual) Monocytes % (Manual) Nucleated RBC % 2.0 H Seg Neutrophils # Seg Neutrophils # Man 20.1 H Lymphocytes # (Manual) 10.4 H Monocytes # (Manual) 2.3 H PT INR APTT Fibrinogen D-Dimer ABG pH POC ABG pCO2 POC ABG pO2 ABG pO2 ABG HCO3 ABG Base Excess ABG Hemoglobin ABG Oxyhemoglobin ABG Sodium ABG Potassium ABG Chloride ABG Glucose VBG pH Oxyhemoglobin Carboxyhemoglobin Sodium Potassium Chloride Carbon Dioxide BUN Creatinine Glucose POC Glucose Random Insulin C-Peptide Lactic Acid Calcium Ionized Calcium Phosphorus Magnesium AST 184 H ALT 113 H Alkaline Phosphatase Lactate Dehydrogenase 769 H NT-Pro-B Natriuret Pep Total Protein Albumin Arterial Blood Glucose Arterial Blood Ionized Calcium Urine WBC (Auto) Vancomycin Trough Phenytoin Crossmatch See Detail 10/02/20 10/02/20 10/02/20 16:25 16:35 16:35 WBC RBC Hgb Hct MCV MCH MCHC RDW Plt Count Lymph % (Auto) [place] % (Auto) Lymph # (Auto) [place] # (Auto) Baso # (Auto) Seg Neutrophils % Seg Neuts % (Manual) Lymphocytes % (Manual) Monocytes % (Manual) Nucleated RBC % Seg Neutrophils # Seg Neutrophils # Man Lymphocytes # (Manual) Monocytes # (Manual) PT INR APTT Fibrinogen D-Dimer ABG pH 7.031 L* POC ABG pCO2 POC ABG pO2 ABG pO2 116.8 H ABG HCO3 12.7 L ABG Base Excess -16.9 L ABG Hemoglobin 7.8 L ABG Oxyhemoglobin ABG Sodium ABG Potassium ABG Chloride ABG Glucose VBG pH Oxyhemoglobin 94.9 L Carboxyhemoglobin Sodium Potassium Chloride Carbon Dioxide BUN Creatinine Glucose 403 H POC Glucose Random Insulin C-Peptide Lactic Acid 11.40 H* Calcium 6.3 L D Ionized Calcium Phosphorus Magnesium AST 70 H ALT Alkaline Phosphatase Lactate Dehydrogenase NT-Pro-B Natriuret Pep Total Protein 1.9 L D Albumin 1.2 L Arterial Blood Glucose Arterial Blood Ionized Calcium Urine WBC (Auto) Vancomycin Trough Phenytoin Crossmatch 10/02/20 10/02/20 10/02/20 18:18 18:18 22:30 WBC 11.5 H RBC 2.06 L Hgb 5.5 L* D Hct 17.3 L* D MCV MCH 27 L MCHC RDW 19.5 H Plt Count 60 L Lymph % (Auto) [place] % (Auto) Lymph # (Auto) [place] # (Auto) Baso # (Auto) Seg Neutrophils % Seg Neuts % (Manual) Lymphocytes % (Manual) 8.0 L Monocytes % (Manual) 8.0 H Nucleated RBC % 8.0 H Seg Neutrophils # Seg Neutrophils # Man Lymphocytes # (Manual) 0.9 L Monocytes # (Manual) 0.9 H PT 37.1 H INR 3.71 H APTT 135.8 H* Fibrinogen D-Dimer ABG pH 7.067 L* POC ABG pCO2 POC ABG pO2 ABG pO2 183.0 H ABG HCO3 14.1 L ABG Base Excess -15.1 L ABG Hemoglobin 7.7 L ABG Oxyhemoglobin ABG Sodium ABG Potassium ABG Chloride ABG Glucose VBG pH Oxyhemoglobin Carboxyhemoglobin Sodium Potassium Chloride Carbon Dioxide BUN Creatinine Glucose POC Glucose Random Insulin C-Peptide Lactic Acid Calcium Ionized Calcium Phosphorus Magnesium AST ALT Alkaline Phosphatase Lactate Dehydrogenase NT-Pro-B Natriuret Pep Total Protein Albumin Arterial Blood Glucose Arterial Blood Ionized Calcium Urine WBC (Auto) Vancomycin Trough Phenytoin Crossmatch 10/02/20 10/02/20 10/03/20 Unknown Unknown 00:01 WBC RBC Hgb Hct MCV MCH MCHC RDW Plt Count Lymph % (Auto) [place] % (Auto) Lymph # (Auto) [place] # (Auto) Baso # (Auto) Seg Neutrophils % Seg Neuts % (Manual) Lymphocytes % (Manual) Monocytes % (Manual) Nucleated RBC % Seg Neutrophils # Seg Neutrophils # Man Lymphocytes # (Manual) Monocytes # (Manual) PT 61.1 H INR 6.92 H* APTT 158.7 H* Fibrinogen < 60 L* D-Dimer > 96471 H ABG pH POC ABG pCO2 POC ABG pO2 ABG pO2 ABG HCO3 ABG Base Excess ABG Hemoglobin ABG Oxyhemoglobin ABG Sodium ABG Potassium ABG Chloride ABG Glucose VBG pH 6.949 L* Oxyhemoglobin Carboxyhemoglobin Sodium Potassium Chloride Carbon Dioxide BUN Creatinine Glucose POC Glucose 196 H Random Insulin C-Peptide Lactic Acid Calcium Ionized Calcium Phosphorus Magnesium AST ALT Alkaline Phosphatase Lactate Dehydrogenase NT-Pro-B Natriuret Pep Total Protein Albumin Arterial Blood Glucose Arterial Blood Ionized Calcium Urine WBC (Auto) Vancomycin Trough Phenytoin Crossmatch 10/03/20 10/03/20 10/03/20 00:40 00:40 00:40 WBC RBC Hgb Hct MCV MCH MCHC RDW Plt Count Lymph % (Auto) [place] % (Auto) Lymph # (Auto) [place] # (Auto) Baso # (Auto) Seg Neutrophils % Seg Neuts % (Manual) Lymphocytes % (Manual) Monocytes % (Manual) Nucleated RBC % Seg Neutrophils # Seg Neutrophils # Man Lymphocytes # (Manual) Monocytes # (Manual) PT 15.1 H INR 1.21 H APTT Fibrinogen D-Dimer ABG pH POC ABG pCO2 POC ABG pO2 ABG pO2 ABG HCO3 ABG Base Excess ABG Hemoglobin ABG Oxyhemoglobin ABG Sodium ABG Potassium ABG Chloride ABG Glucose VBG pH Oxyhemoglobin Carboxyhemoglobin Sodium 136 L Potassium Chloride Carbon Dioxide BUN Creatinine 1.6 H D Glucose 106 H POC Glucose Random Insulin C-Peptide Lactic Acid 5.60 H* Calcium 6.5 L Ionized Calcium Phosphorus Magnesium AST 232 H ALT 104 H Alkaline Phosphatase Lactate Dehydrogenase NT-Pro-B Natriuret Pep Total Protein 3.9 L D Albumin 2.4 L Arterial Blood Glucose Arterial Blood Ionized Calcium Urine WBC (Auto) Vancomycin Trough Phenytoin Crossmatch 10/03/20 10/03/20 10/03/20 02:08 02:08 02:08 WBC 17.6 H RBC 3.27 L Hgb 9.9 L D Hct 29.9 L D MCV MCH MCHC RDW 16.5 H Plt Count 75 L Lymph % (Auto) [place] % (Auto) Lymph # (Auto) [place] # (Auto) Baso # (Auto) Seg Neutrophils % Seg Neuts % (Manual) 76.0 H Lymphocytes % (Manual) Monocytes % (Manual) Nucleated RBC % 8.0 H Seg Neutrophils # Seg Neutrophils # Man 13.4 H Lymphocytes # (Manual) Monocytes # (Manual) PT INR APTT Fibrinogen D-Dimer ABG pH POC ABG pCO2 POC ABG pO2 ABG pO2 ABG HCO3 ABG Base Excess ABG Hemoglobin ABG Oxyhemoglobin ABG Sodium ABG Potassium ABG Chloride ABG Glucose VBG pH Oxyhemoglobin Carboxyhemoglobin Sodium Potassium Chloride Carbon Dioxide 19 L BUN Creatinine 1.4 H Glucose 306 H POC Glucose Random Insulin C-Peptide Lactic Acid 10.50 H* Calcium 6.4 L Ionized Calcium Phosphorus Magnesium AST ALT Alkaline Phosphatase Lactate Dehydrogenase NT-Pro-B Natriuret Pep Total Protein Albumin Arterial Blood Glucose Arterial Blood Ionized Calcium Urine WBC (Auto) Vancomycin Trough Phenytoin Crossmatch 10/03/20 10/03/20 10/03/20 02:42 03:59 05:31 WBC RBC Hgb Hct MCV MCH MCHC RDW Plt Count Lymph % (Auto) [place] % (Auto) Lymph # (Auto) [place] # (Auto) Baso # (Auto) Seg Neutrophils % Seg Neuts % (Manual) Lymphocytes % (Manual) Monocytes % (Manual) Nucleated RBC % Seg Neutrophils # Seg Neutrophils # Man Lymphocytes # (Manual) Monocytes # (Manual) PT INR APTT Fibrinogen D-Dimer ABG pH 7.144 L POC ABG pCO2 54.4 H POC ABG pO2 ABG pO2 ABG HCO3 ABG Base Excess ABG Hemoglobin 10.0 L ABG Oxyhemoglobin ABG Sodium ABG Potassium ABG Chloride 108.0 H ABG Glucose 306 H VBG pH Oxyhemoglobin Carboxyhemoglobin Sodium Potassium Chloride Carbon Dioxide BUN Creatinine Glucose POC Glucose 209 H Random Insulin C-Peptide Lactic Acid 9.20 H* Calcium Ionized Calcium Phosphorus Magnesium AST ALT Alkaline Phosphatase Lactate Dehydrogenase NT-Pro-B Natriuret Pep Total Protein Albumin Arterial Blood Glucose 306 H Arterial Blood Ionized Calcium 3.7 L Urine WBC (Auto) Vancomycin Trough Phenytoin Crossmatch 10/03/20 10/03/20 10/03/20 09:00 09:00 09:00 WBC 27.4 H RBC 2.84 L Hgb 8.5 L Hct 25.1 L MCV MCH MCHC RDW 16.1 H Plt Count 72 L Lymph % (Auto) [place] % (Auto) Lymph # (Auto) [place] # (Auto) Baso # (Auto) Seg Neutrophils % Seg Neuts % (Manual) Lymphocytes % (Manual) 11.0 L Monocytes % (Manual) Nucleated RBC % 3.0 H Seg Neutrophils # Seg Neutrophils # Man 18.4 H Lymphocytes # (Manual) Monocytes # (Manual) 1.9 H PT INR APTT Fibrinogen D-Dimer ABG pH POC ABG pCO2 POC ABG pO2 ABG pO2 ABG HCO3 ABG Base Excess ABG Hemoglobin ABG Oxyhemoglobin ABG Sodium ABG Potassium ABG Chloride ABG Glucose VBG pH Oxyhemoglobin Carboxyhemoglobin Sodium Potassium Chloride Carbon Dioxide BUN Creatinine 1.7 H Glucose 216 H POC Glucose Random Insulin C-Peptide Lactic Acid 9.20 H* Calcium 6.3 L Ionized Calcium Phosphorus Magnesium AST 331 H ALT 171 H Alkaline Phosphatase Lactate Dehydrogenase NT-Pro-B Natriuret Pep Total Protein 3.7 L Albumin 1.9 L Arterial Blood Glucose Arterial Blood Ionized Calcium Urine WBC (Auto) Vancomycin Trough Phenytoin Crossmatch 10/03/20 10/03/20 10/03/20 11:20 11:46 11:50 WBC 28.7 H RBC 2.67 L Hgb 8.0 L Hct 23.7 L MCV MCH MCHC RDW 16.6 H Plt Count 76 L Lymph % (Auto) [place] % (Auto) Lymph # (Auto) [place] # (Auto) Baso # (Auto) Seg Neutrophils % Seg Neuts % (Manual) Lymphocytes % (Manual) Monocytes % (Manual) Nucleated RBC % Seg Neutrophils # Seg Neutrophils # Man Lymphocytes # (Manual) Monocytes # (Manual) PT INR APTT Fibrinogen D-Dimer ABG pH POC ABG pCO2 POC ABG pO2 ABG pO2 ABG HCO3 ABG Base Excess ABG Hemoglobin ABG Oxyhemoglobin ABG Sodium ABG Potassium ABG Chloride ABG Glucose VBG pH Oxyhemoglobin Carboxyhemoglobin Sodium Potassium Chloride Carbon Dioxide BUN Creatinine Glucose POC Glucose 125 H Random Insulin C-Peptide Lactic Acid 8.00 H* Calcium Ionized Calcium Phosphorus Magnesium AST ALT Alkaline Phosphatase Lactate Dehydrogenase NT-Pro-B Natriuret Pep Total Protein Albumin Arterial Blood Glucose Arterial Blood Ionized Calcium Urine WBC (Auto) Vancomycin Trough Phenytoin Crossmatch 10/03/20 10/04/20 10/04/20 11:50 00:40 00:40 WBC RBC Hgb 6.8 L Hct 19.4 L* MCV MCH MCHC RDW Plt Count 49 L Lymph % (Auto) [place] % (Auto) Lymph # (Auto) [place] # (Auto) Baso # (Auto) Seg Neutrophils % Seg Neuts % (Manual) Lymphocytes % (Manual) Monocytes % (Manual) Nucleated RBC % Seg Neutrophils # Seg Neutrophils # Man Lymphocytes # (Manual) Monocytes # (Manual) PT INR APTT Fibrinogen D-Dimer ABG pH 7.244 L POC ABG pCO2 POC ABG pO2 ABG pO2 ABG HCO3 ABG Base Excess -4.5 L ABG Hemoglobin 7.3 L ABG Oxyhemoglobin ABG Sodium ABG Potassium ABG Chloride ABG Glucose VBG pH Oxyhemoglobin Carboxyhemoglobin Sodium Potassium Chloride Carbon Dioxide BUN Creatinine Glucose POC Glucose Random Insulin C-Peptide Lactic Acid Calcium Ionized Calcium Phosphorus Magnesium AST ALT Alkaline Phosphatase Lactate Dehydrogenase NT-Pro-B Natriuret Pep Total Protein Albumin Arterial Blood Glucose Arterial Blood Ionized Calcium Urine WBC (Auto) Vancomycin Trough Phenytoin Crossmatch 10/04/20 10/04/20 10/04/20 03:53 10:00 10:00 WBC 14.6 H RBC 2.57 L Hgb 7.6 L Hct 22.5 L MCV MCH MCHC RDW 15.8 H Plt Count 38 L Lymph % (Auto) 7.7 L [place] % (Auto) Lymph # (Auto) 1.1 L [place] # (Auto) 0.9 H Baso # (Auto) Seg Neutrophils % 85.6 H Seg Neuts % (Manual) Lymphocytes % (Manual) Monocytes % (Manual) Nucleated RBC % Seg Neutrophils # 12.5 H Seg Neutrophils # Man Lymphocytes # (Manual) Monocytes # (Manual) PT INR APTT Fibrinogen D-Dimer ABG pH POC ABG pCO2 POC ABG pO2 110.6 H ABG pO2 ABG HCO3 ABG Base Excess ABG Hemoglobin 6.7 L ABG Oxyhemoglobin ABG Sodium 132.0 L ABG Potassium ABG Chloride ABG Glucose 111 H VBG pH Oxyhemoglobin Carboxyhemoglobin Sodium 134 L D Potassium Chloride 97.6 L Carbon Dioxide BUN Creatinine 1.7 H Glucose POC Glucose Random Insulin C-Peptide Lactic Acid Calcium 6.3 L Ionized Calcium Phosphorus Magnesium AST 203 H ALT 81 H Alkaline Phosphatase Lactate Dehydrogenase NT-Pro-B Natriuret Pep Total Protein 3.9 L Albumin 2.3 L Arterial Blood Glucose 111 H Arterial Blood Ionized Calcium 3.5 L Urine WBC (Auto) Vancomycin Trough Phenytoin Crossmatch 10/04/20 10/04/20 10/04/20 10:00 10:00 10:14 WBC RBC Hgb Hct MCV MCH MCHC RDW Plt Count Lymph % (Auto) [place] % (Auto) Lymph # (Auto) [place] # (Auto) Baso # (Auto) Seg Neutrophils % Seg Neuts % (Manual) Lymphocytes % (Manual) Monocytes % (Manual) Nucleated RBC % Seg Neutrophils # Seg Neutrophils # Man Lymphocytes # (Manual) Monocytes # (Manual) PT INR APTT Fibrinogen D-Dimer > 72042 H ABG pH POC ABG pCO2 POC ABG pO2 ABG pO2 ABG HCO3 ABG Base Excess ABG Hemoglobin ABG Oxyhemoglobin ABG Sodium ABG Potassium ABG Chloride ABG Glucose VBG pH Oxyhemoglobin Carboxyhemoglobin Sodium Potassium Chloride Carbon Dioxide BUN Creatinine Glucose POC Glucose Random Insulin C-Peptide Lactic Acid 3.90 H* Calcium Ionized Calcium Phosphorus Magnesium AST ALT Alkaline Phosphatase Lactate Dehydrogenase NT-Pro-B Natriuret Pep 2788 H Total Protein Albumin Arterial Blood Glucose Arterial Blood Ionized Calcium Urine WBC (Auto) Vancomycin Trough Phenytoin Crossmatch 10/04/20 10/04/20 10/04/20 14:00 14:00 18:00 WBC 15.7 H RBC 3.17 L Hgb 9.3 L 9.6 L Hct 27.2 L 28.0 L MCV MCH MCHC RDW 16.9 H Plt Count 41 L Lymph % (Auto) 8.6 L [place] % (Auto) Lymph # (Auto) [place] # (Auto) 0.9 H Baso # (Auto) Seg Neutrophils % 85.4 H Seg Neuts % (Manual) Lymphocytes % (Manual) Monocytes % (Manual) Nucleated RBC % Seg Neutrophils # 13.4 H Seg Neutrophils # Man Lymphocytes # (Manual) Monocytes # (Manual) PT INR APTT Fibrinogen D-Dimer ABG pH POC ABG pCO2 POC ABG pO2 ABG pO2 ABG HCO3 ABG Base Excess ABG Hemoglobin ABG Oxyhemoglobin ABG Sodium ABG Potassium ABG Chloride ABG Glucose VBG pH Oxyhemoglobin Carboxyhemoglobin Sodium 133 L Potassium Chloride 96.4 L Carbon Dioxide BUN 18 H Creatinine 1.7 H Glucose POC Glucose Random Insulin C-Peptide Lactic Acid Calcium 6.3 L Ionized Calcium Phosphorus Magnesium AST ALT Alkaline Phosphatase Lactate Dehydrogenase NT-Pro-B Natriuret Pep Total Protein Albumin Arterial Blood Glucose Arterial Blood Ionized Calcium Urine WBC (Auto) Vancomycin Trough Phenytoin Crossmatch 10/04/20 10/04/20 10/05/20 18:00 22:00 05:00 WBC 17.6 H RBC 3.34 L Hgb 9.9 L Hct 29.4 L MCV MCH MCHC RDW 17.1 H Plt Count 56 L Lymph % (Auto) 8.5 L [place] % (Auto) Lymph # (Auto) [place] # (Auto) 1.0 H Baso # (Auto) Seg Neutrophils % 85.1 H Seg Neuts % (Manual) Lymphocytes % (Manual) Monocytes % (Manual) Nucleated RBC % Seg Neutrophils # 15.0 H Seg Neutrophils # Man Lymphocytes # (Manual) Monocytes # (Manual) PT INR APTT Fibrinogen D-Dimer ABG pH POC ABG pCO2 POC ABG pO2 ABG pO2 ABG HCO3 ABG Base Excess ABG Hemoglobin ABG Oxyhemoglobin ABG Sodium ABG Potassium ABG Chloride ABG Glucose VBG pH Oxyhemoglobin Carboxyhemoglobin Sodium 136 L Potassium Chloride Carbon Dioxide BUN 18 H Creatinine 1.7 H Glucose POC Glucose Random Insulin C-Peptide Lactic Acid 2.30 H* Calcium 6.6 L Ionized Calcium Phosphorus Magnesium AST ALT Alkaline Phosphatase Lactate Dehydrogenase NT-Pro-B Natriuret Pep Total Protein Albumin Arterial Blood Glucose Arterial Blood Ionized Calcium Urine WBC (Auto) Vancomycin Trough Phenytoin Crossmatch 12/21/20 12/21/20 12/21/20 05:00 05:00 05:03 WBC RBC Hgb Hct MCV MCH MCHC RDW Plt Count Lymph % (Auto) [place] % (Auto) Lymph # (Auto) [place] # (Auto) Baso # (Auto) Seg Neutrophils % Seg Neuts % (Manual) Lymphocytes % (Manual) Monocytes % (Manual) Nucleated RBC % Seg Neutrophils # Seg Neutrophils # Man Lymphocytes # (Manual) Monocytes # (Manual) PT INR APTT Fibrinogen D-Dimer ABG pH 7.458 H POC ABG pCO2 POC ABG pO2 ABG pO2 74.3 L ABG HCO3 27.5 H ABG Base Excess 3.4 H ABG Hemoglobin 10.0 L ABG Oxyhemoglobin ABG Sodium ABG Potassium ABG Chloride ABG Glucose VBG pH Oxyhemoglobin 94.9 L Carboxyhemoglobin Sodium Potassium Chloride Carbon Dioxide BUN 19 H Creatinine 1.8 H Glucose POC Glucose Random Insulin C-Peptide Lactic Acid Calcium 6.8 L Ionized Calcium 3.9 L Phosphorus Magnesium AST 225 H ALT 85 H Alkaline Phosphatase Lactate Dehydrogenase NT-Pro-B Natriuret Pep Total Protein 4.5 L Albumin 2.7 L Arterial Blood Glucose Arterial Blood Ionized Calcium Urine WBC (Auto) Vancomycin Trough Phenytoin Crossmatch 10/05/20 10/05/20 10/05/20 10:10 15:00 19:40 WBC RBC Hgb Hct MCV MCH MCHC RDW Plt Count Lymph % (Auto) [place] % (Auto) Lymph # (Auto) [place] # (Auto) Baso # (Auto) Seg Neutrophils % Seg Neuts % (Manual) Lymphocytes % (Manual) Monocytes % (Manual) Nucleated RBC % Seg Neutrophils # Seg Neutrophils # Man Lymphocytes # (Manual) Monocytes # (Manual) PT INR APTT Fibrinogen D-Dimer ABG pH POC ABG pCO2 POC ABG pO2 ABG pO2 ABG HCO3 ABG Base Excess ABG Hemoglobin ABG Oxyhemoglobin ABG Sodium ABG Potassium ABG Chloride ABG Glucose VBG pH Oxyhemoglobin Carboxyhemoglobin Sodium Potassium 3.5 L Chloride Carbon Dioxide 31 H 32 H BUN 19 H 19 H Creatinine 1.8 H 1.8 H Glucose POC Glucose Random Insulin C-Peptide Lactic Acid Calcium 7.0 L 7.2 L Ionized Calcium Phosphorus Magnesium 2.90 H AST ALT Alkaline Phosphatase Lactate Dehydrogenase NT-Pro-B Natriuret Pep Total Protein Albumin Arterial Blood Glucose Arterial Blood Ionized Calcium Urine WBC (Auto) Vancomycin Trough Phenytoin Crossmatch 10/06/20 10/06/20 10/06/20 01:05 03:12 04:00 WBC 17.1 H RBC 3.47 L Hgb Hct MCV MCH MCHC RDW 17.4 H Plt Count 82 L Lymph % (Auto) 8.3 L [place] % (Auto) Lymph # (Auto) [place] # (Auto) 1.1 H Baso # (Auto) Seg Neutrophils % 83.8 H Seg Neuts % (Manual) Lymphocytes % (Manual) Monocytes % (Manual) Nucleated RBC % Seg Neutrophils # 14.3 H Seg Neutrophils # Man Lymphocytes # (Manual) Monocytes # (Manual) PT INR APTT Fibrinogen D-Dimer ABG pH 7.474 H POC ABG pCO2 POC ABG pO2 129.5 H ABG pO2 ABG HCO3 ABG Base Excess ABG Hemoglobin 11.4 L ABG Oxyhemoglobin ABG Sodium 131.8 L ABG Potassium ABG Chloride ABG Glucose 103 H VBG pH Oxyhemoglobin Carboxyhemoglobin 0.3 L Sodium Potassium Chloride Carbon Dioxide BUN Creatinine Glucose POC Glucose Random Insulin C-Peptide Lactic Acid Calcium Ionized Calcium Phosphorus Magnesium 3.70 H AST ALT Alkaline Phosphatase Lactate Dehydrogenase NT-Pro-B Natriuret Pep Total Protein Albumin Arterial Blood Glucose 103 H Arterial Blood Ionized Calcium 4.2 L Urine WBC (Auto) Vancomycin Trough Phenytoin Crossmatch 10/06/20 10/06/20 10/06/20 04:00 05:31 08:12 WBC RBC Hgb Hct MCV MCH MCHC RDW Plt Count Lymph % (Auto) [place] % (Auto) Lymph # (Auto) [place] # (Auto) Baso # (Auto) Seg Neutrophils % Seg Neuts % (Manual) Lymphocytes % (Manual) Monocytes % (Manual) Nucleated RBC % Seg Neutrophils # Seg Neutrophils # Man Lymphocytes # (Manual) Monocytes # (Manual) PT INR APTT Fibrinogen D-Dimer ABG pH POC ABG pCO2 POC ABG pO2 ABG pO2 ABG HCO3 ABG Base Excess ABG Hemoglobin ABG Oxyhemoglobin ABG Sodium ABG Potassium ABG Chloride ABG Glucose VBG pH Oxyhemoglobin Carboxyhemoglobin Sodium Potassium 3.5 L Chloride Carbon Dioxide BUN 19 H Creatinine 1.8 H Glucose 102 H POC Glucose 116 H Random Insulin C-Peptide Lactic Acid Calcium 7.2 L Ionized Calcium Phosphorus Magnesium 5.40 H AST 307 H ALT 137 H Alkaline Phosphatase Lactate Dehydrogenase NT-Pro-B Natriuret Pep Total Protein 4.5 L Albumin 2.6 L Arterial Blood Glucose Arterial Blood Ionized Calcium Urine WBC (Auto) Vancomycin Trough Phenytoin Crossmatch 10/06/20 10/06/20 10/06/20 11:00 11:50 20:13 WBC RBC Hgb Hct MCV MCH MCHC RDW Plt Count Lymph % (Auto) [place] % (Auto) Lymph # (Auto) [place] # (Auto) Baso # (Auto) Seg Neutrophils % Seg Neuts % (Manual) Lymphocytes % (Manual) Monocytes % (Manual) Nucleated RBC % Seg Neutrophils # Seg Neutrophils # Man Lymphocytes # (Manual) Monocytes # (Manual) PT INR APTT Fibrinogen D-Dimer ABG pH POC ABG pCO2 POC ABG pO2 ABG pO2 ABG HCO3 ABG Base Excess ABG Hemoglobin ABG Oxyhemoglobin ABG Sodium ABG Potassium ABG Chloride ABG Glucose VBG pH Oxyhemoglobin Carboxyhemoglobin Sodium Potassium Chloride Carbon Dioxide BUN Creatinine Glucose POC Glucose 106 H Random Insulin C-Peptide Lactic Acid Calcium Ionized Calcium Phosphorus Magnesium 6.50 H 6.20 H AST ALT Alkaline Phosphatase Lactate Dehydrogenase NT-Pro-B Natriuret Pep Total Protein Albumin Arterial Blood Glucose Arterial Blood Ionized Calcium Urine WBC (Auto) Vancomycin Trough Phenytoin Crossmatch 10/06/20 10/06/20 10/06/20 20:17 22:29 23:57 WBC RBC Hgb Hct MCV MCH MCHC RDW Plt Count Lymph % (Auto) [place] % (Auto) Lymph # (Auto) [place] # (Auto) Baso # (Auto) Seg Neutrophils % Seg Neuts % (Manual) Lymphocytes % (Manual) Monocytes % (Manual) Nucleated RBC % Seg Neutrophils # Seg Neutrophils # Man Lymphocytes # (Manual) Monocytes # (Manual) PT INR APTT Fibrinogen D-Dimer ABG pH POC ABG pCO2 POC ABG pO2 ABG pO2 ABG HCO3 ABG Base Excess ABG Hemoglobin ABG Oxyhemoglobin ABG Sodium ABG Potassium ABG Chloride ABG Glucose VBG pH Oxyhemoglobin Carboxyhemoglobin Sodium Potassium Chloride Carbon Dioxide BUN Creatinine Glucose POC Glucose 112 H 126 H 133 H Random Insulin C-Peptide Lactic Acid Calcium Ionized Calcium Phosphorus Magnesium AST ALT Alkaline Phosphatase Lactate Dehydrogenase NT-Pro-B Natriuret Pep Total Protein Albumin Arterial Blood Glucose Arterial Blood Ionized Calcium Urine WBC (Auto) Vancomycin Trough Phenytoin Crossmatch 10/07/20 10/07/20 10/07/20 00:35 02:22 03:16 WBC RBC Hgb Hct MCV MCH MCHC RDW Plt Count Lymph % (Auto) [place] % (Auto) Lymph # (Auto) [place] # (Auto) Baso # (Auto) Seg Neutrophils % Seg Neuts % (Manual) Lymphocytes % (Manual) Monocytes % (Manual) Nucleated RBC % Seg Neutrophils # Seg Neutrophils # Man Lymphocytes # (Manual) Monocytes # (Manual) PT INR APTT Fibrinogen D-Dimer ABG pH POC ABG pCO2 POC ABG pO2 ABG pO2 ABG HCO3 ABG Base Excess ABG Hemoglobin 11.6 L ABG Oxyhemoglobin ABG Sodium ABG Potassium ABG Chloride ABG Glucose 156 H VBG pH Oxyhemoglobin Carboxyhemoglobin 0.3 L Sodium Potassium Chloride Carbon Dioxide BUN Creatinine Glucose POC Glucose 124 H Random Insulin C-Peptide Lactic Acid Calcium Ionized Calcium Phosphorus Magnesium 5.90 H AST ALT Alkaline Phosphatase Lactate Dehydrogenase NT-Pro-B Natriuret Pep Total Protein Albumin Arterial Blood Glucose 156 H Arterial Blood Ionized Calcium 4.2 L Urine WBC (Auto) Vancomycin Trough Phenytoin Crossmatch 10/07/20 10/07/20 10/07/20 04:06 05:45 07:05 WBC 19.2 H RBC 3.57 L Hgb Hct MCV MCH MCHC 35 H RDW 17.1 H Plt Count 129 L Lymph % (Auto) [place] % (Auto) Lymph # (Auto) [place] # (Auto) Baso # (Auto) Seg Neutrophils % Seg Neuts % (Manual) 94.0 H Lymphocytes % (Manual) 6.0 L Monocytes % (Manual) Nucleated RBC % Seg Neutrophils # Seg Neutrophils # Man 18.0 H Lymphocytes # (Manual) Monocytes # (Manual) PT INR APTT Fibrinogen D-Dimer ABG pH POC ABG pCO2 POC ABG pO2 ABG pO2 ABG HCO3 ABG Base Excess ABG Hemoglobin ABG Oxyhemoglobin ABG Sodium ABG Potassium ABG Chloride ABG Glucose VBG pH Oxyhemoglobin Carboxyhemoglobin Sodium Potassium Chloride Carbon Dioxide BUN Creatinine Glucose POC Glucose 135 H 149 H Random Insulin C-Peptide Lactic Acid Calcium Ionized Calcium Phosphorus Magnesium AST ALT Alkaline Phosphatase Lactate Dehydrogenase NT-Pro-B Natriuret Pep Total Protein Albumin Arterial Blood Glucose Arterial Blood Ionized Calcium Urine WBC (Auto) Vancomycin Trough Phenytoin Crossmatch 10/07/20 10/07/20 10/07/20 07:05 07:05 12:21 WBC RBC Hgb Hct MCV MCH MCHC RDW Plt Count Lymph % (Auto) [place] % (Auto) Lymph # (Auto) [place] # (Auto) Baso # (Auto) Seg Neutrophils % Seg Neuts % (Manual) Lymphocytes % (Manual) Monocytes % (Manual) Nucleated RBC % Seg Neutrophils # Seg Neutrophils # Man Lymphocytes # (Manual) Monocytes # (Manual) PT INR APTT Fibrinogen D-Dimer ABG pH POC ABG pCO2 POC ABG pO2 ABG pO2 ABG HCO3 ABG Base Excess ABG Hemoglobin ABG Oxyhemoglobin ABG Sodium ABG Potassium ABG Chloride ABG Glucose VBG pH Oxyhemoglobin Carboxyhemoglobin Sodium Potassium Chloride Carbon Dioxide BUN 21 H Creatinine 1.7 H Glucose 171 H POC Glucose 124 H Random Insulin C-Peptide Lactic Acid Calcium 7.4 L Ionized Calcium Phosphorus Magnesium 6.10 H AST 245 H ALT 147 H Alkaline Phosphatase Lactate Dehydrogenase NT-Pro-B Natriuret Pep Total Protein 5.3 L Albumin 2.8 L Arterial Blood Glucose Arterial Blood Ionized Calcium Urine WBC (Auto) Vancomycin Trough Phenytoin Crossmatch 10/07/20 10/07/20 10/07/20 19:52 21:00 21:50 WBC RBC Hgb Hct MCV MCH MCHC RDW Plt Count Lymph % (Auto) [place] % (Auto) Lymph # (Auto) [place] # (Auto) Baso # (Auto) Seg Neutrophils % Seg Neuts % (Manual) Lymphocytes % (Manual) Monocytes % (Manual) Nucleated RBC % Seg Neutrophils # Seg Neutrophils # Man Lymphocytes # (Manual) Monocytes # (Manual) PT INR APTT Fibrinogen D-Dimer ABG pH POC ABG pCO2 POC ABG pO2 ABG pO2 ABG HCO3 ABG Base Excess ABG Hemoglobin ABG Oxyhemoglobin ABG Sodium ABG Potassium ABG Chloride ABG Glucose VBG pH Oxyhemoglobin Carboxyhemoglobin Sodium Potassium Chloride Carbon Dioxide BUN Creatinine Glucose POC Glucose 193 H 138 H Random Insulin C-Peptide Lactic Acid Calcium Ionized Calcium 4.4 L Phosphorus Magnesium AST ALT Alkaline Phosphatase Lactate Dehydrogenase NT-Pro-B Natriuret Pep Total Protein Albumin Arterial Blood Glucose Arterial Blood Ionized Calcium Urine WBC (Auto) Vancomycin Trough Phenytoin Crossmatch 10/07/20 10/08/20 10/08/20 23:41 04:20 05:30 WBC RBC Hgb Hct MCV MCH MCHC RDW Plt Count Lymph % (Auto) [place] % (Auto) Lymph # (Auto) [place] # (Auto) Baso # (Auto) Seg Neutrophils % Seg Neuts % (Manual) Lymphocytes % (Manual) Monocytes % (Manual) Nucleated RBC % Seg Neutrophils # Seg Neutrophils # Man Lymphocytes # (Manual) Monocytes # (Manual) PT INR APTT Fibrinogen D-Dimer ABG pH 7.467 H POC ABG pCO2 POC ABG pO2 189.8 H ABG pO2 ABG HCO3 ABG Base Excess ABG Hemoglobin 10.8 L ABG Oxyhemoglobin ABG Sodium ABG Potassium ABG Chloride ABG Glucose 133 H VBG pH Oxyhemoglobin Carboxyhemoglobin Sodium Potassium Chloride Carbon Dioxide BUN Creatinine Glucose POC Glucose 118 H 114 H Random Insulin C-Peptide Lactic Acid Calcium Ionized Calcium Phosphorus Magnesium AST ALT Alkaline Phosphatase Lactate Dehydrogenase NT-Pro-B Natriuret Pep Total Protein Albumin Arterial Blood Glucose 133 H Arterial Blood Ionized Calcium 4.2 L Urine WBC (Auto) Vancomycin Trough Phenytoin Crossmatch 10/08/20 10/08/20 10/08/20 05:43 06:42 06:42 WBC 23.6 H RBC 3.54 L Hgb Hct MCV MCH MCHC RDW 17.8 H Plt Count Lymph % (Auto) [place] % (Auto) Lymph # (Auto) [place] # (Auto) Baso # (Auto) Seg Neutrophils % Seg Neuts % (Manual) 93.0 H Lymphocytes % (Manual) 3.0 L Monocytes % (Manual) Nucleated RBC % 1.0 H Seg Neutrophils # Seg Neutrophils # Man 21.9 H Lymphocytes # (Manual) 0.7 L Monocytes # (Manual) 0.9 H PT INR APTT Fibrinogen D-Dimer ABG pH POC ABG pCO2 POC ABG pO2 ABG pO2 ABG HCO3 ABG Base Excess ABG Hemoglobin ABG Oxyhemoglobin ABG Sodium ABG Potassium ABG Chloride ABG Glucose VBG pH Oxyhemoglobin Carboxyhemoglobin Sodium Potassium Chloride Carbon Dioxide BUN 28 H Creatinine 1.6 H Glucose 141 H POC Glucose 126 H Random Insulin C-Peptide Lactic Acid Calcium 7.6 L Ionized Calcium Phosphorus Magnesium AST 162 H ALT 103 H Alkaline Phosphatase Lactate Dehydrogenase NT-Pro-B Natriuret Pep Total Protein 5.4 L Albumin 2.7 L Arterial Blood Glucose Arterial Blood Ionized Calcium Urine WBC (Auto) Vancomycin Trough Phenytoin Crossmatch 10/08/20 10/08/20 10/08/20 11:20 16:05 20:14 WBC RBC Hgb Hct MCV MCH MCHC RDW Plt Count Lymph % (Auto) [place] % (Auto) Lymph # (Auto) [place] # (Auto) Baso # (Auto) Seg Neutrophils % Seg Neuts % (Manual) Lymphocytes % (Manual) Monocytes % (Manual) Nucleated RBC % Seg Neutrophils # Seg Neutrophils # Man Lymphocytes # (Manual) Monocytes # (Manual) PT INR APTT Fibrinogen D-Dimer ABG pH POC ABG pCO2 POC ABG pO2 ABG pO2 ABG HCO3 ABG Base Excess ABG Hemoglobin ABG Oxyhemoglobin ABG Sodium ABG Potassium ABG Chloride ABG Glucose VBG pH Oxyhemoglobin Carboxyhemoglobin Sodium Potassium Chloride Carbon Dioxide BUN Creatinine Glucose POC Glucose 127 H 172 H 147 H Random Insulin C-Peptide Lactic Acid Calcium Ionized Calcium Phosphorus Magnesium AST ALT Alkaline Phosphatase Lactate Dehydrogenase NT-Pro-B Natriuret Pep Total Protein Albumin Arterial Blood Glucose Arterial Blood Ionized Calcium Urine WBC (Auto) Vancomycin Trough Phenytoin Crossmatch 10/08/20 10/08/20 10/09/20 21:27 23:24 02:10 WBC RBC Hgb Hct MCV MCH MCHC RDW Plt Count Lymph % (Auto) [place] % (Auto) Lymph # (Auto) [place] # (Auto) Baso # (Auto) Seg Neutrophils % Seg Neuts % (Manual) Lymphocytes % (Manual) Monocytes % (Manual) Nucleated RBC % Seg Neutrophils # Seg Neutrophils # Man Lymphocytes # (Manual) Monocytes # (Manual) PT INR APTT Fibrinogen D-Dimer ABG pH POC ABG pCO2 POC ABG pO2 ABG pO2 ABG HCO3 ABG Base Excess ABG Hemoglobin ABG Oxyhemoglobin ABG Sodium ABG Potassium ABG Chloride ABG Glucose VBG pH Oxyhemoglobin Carboxyhemoglobin Sodium Potassium Chloride Carbon Dioxide BUN Creatinine Glucose POC Glucose 140 H 135 H 111 H Random Insulin C-Peptide Lactic Acid Calcium Ionized Calcium Phosphorus Magnesium AST ALT Alkaline Phosphatase Lactate Dehydrogenase NT-Pro-B Natriuret Pep Total Protein Albumin Arterial Blood Glucose Arterial Blood Ionized Calcium Urine WBC (Auto) Vancomycin Trough Phenytoin Crossmatch 10/09/20 10/09/20 10/09/20 03:44 04:39 05:46 WBC 19.7 H RBC 3.51 L Hgb Hct MCV MCH MCHC RDW 17.7 H Plt Count Lymph % (Auto) [place] % (Auto) Lymph # (Auto) [place] # (Auto) Baso # (Auto) Seg Neutrophils % Seg Neuts % (Manual) 86.0 H Lymphocytes % (Manual) 4.0 L Monocytes % (Manual) 9.0 H Nucleated RBC % Seg Neutrophils # Seg Neutrophils # Man 16.9 H Lymphocytes # (Manual) 0.8 L Monocytes # (Manual) 1.8 H PT INR APTT Fibrinogen D-Dimer ABG pH 7.513 H POC ABG pCO2 POC ABG pO2 33.6 L ABG pO2 ABG HCO3 ABG Base Excess ABG Hemoglobin 11.1 L ABG Oxyhemoglobin 70.2 L ABG Sodium ABG Potassium 3.2 L ABG Chloride 108.0 H ABG Glucose 108 H VBG pH Oxyhemoglobin Carboxyhemoglobin Sodium Potassium Chloride Carbon Dioxide BUN Creatinine Glucose POC Glucose 109 H Random Insulin C-Peptide Lactic Acid Calcium Ionized Calcium Phosphorus Magnesium AST ALT Alkaline Phosphatase Lactate Dehydrogenase NT-Pro-B Natriuret Pep Total Protein Albumin Arterial Blood Glucose 108 H Arterial Blood Ionized Calcium 4.3 L Urine WBC (Auto) Vancomycin Trough Phenytoin Crossmatch 10/09/20 10/10/20 10/10/20 05:46 04:00 04:00 WBC 18.4 H RBC Hgb Hct MCV MCH MCHC RDW 17.5 H Plt Count Lymph % (Auto) 9.8 L [place] % (Auto) 8.8 H Lymph # (Auto) [place] # (Auto) 1.6 H Baso # (Auto) Seg Neutrophils % 80.0 H Seg Neuts % (Manual) Lymphocytes % (Manual) Monocytes % (Manual) Nucleated RBC % Seg Neutrophils # 14.7 H Seg Neutrophils # Man Lymphocytes # (Manual) Monocytes # (Manual) PT INR APTT Fibrinogen D-Dimer ABG pH POC ABG pCO2 POC ABG pO2 ABG pO2 ABG HCO3 ABG Base Excess ABG Hemoglobin ABG Oxyhemoglobin ABG Sodium ABG Potassium ABG Chloride ABG Glucose VBG pH Oxyhemoglobin Carboxyhemoglobin Sodium 146 H Potassium 3.2 L 2.9 L* Chloride 108.9 H 112.6 H Carbon Dioxide BUN 34 H 28 H Creatinine 1.4 H 1.3 H Glucose 109 H 101 H POC Glucose Random Insulin C-Peptide Lactic Acid Calcium 7.6 L 7.8 L Ionized Calcium Phosphorus Magnesium AST 137 H 122 H ALT 99 H 81 H Alkaline Phosphatase Lactate Dehydrogenase NT-Pro-B Natriuret Pep Total Protein 5.1 L 5.2 L Albumin 2.6 L 2.7 L Arterial Blood Glucose Arterial Blood Ionized Calcium Urine WBC (Auto) Vancomycin Trough Phenytoin Crossmatch 10/10/20 10/10/20 10/11/20 04:42 09:50 00:44 WBC RBC Hgb Hct MCV MCH MCHC RDW Plt Count Lymph % (Auto) [place] % (Auto) Lymph # (Auto) [place] # (Auto) Baso # (Auto) Seg Neutrophils % Seg Neuts % (Manual) Lymphocytes % (Manual) Monocytes % (Manual) Nucleated RBC % Seg Neutrophils # Seg Neutrophils # Man Lymphocytes # (Manual) Monocytes # (Manual) PT INR APTT Fibrinogen D-Dimer ABG pH 7.534 H POC ABG pCO2 POC ABG pO2 ABG pO2 95.2 H ABG HCO3 ABG Base Excess ABG Hemoglobin 11.3 L ABG Oxyhemoglobin ABG Sodium ABG Potassium ABG Chloride ABG Glucose VBG pH Oxyhemoglobin Carboxyhemoglobin Sodium Potassium Chloride Carbon Dioxide BUN Creatinine Glucose POC Glucose 109 H 106 H Random Insulin C-Peptide Lactic Acid Calcium Ionized Calcium Phosphorus Magnesium AST ALT Alkaline Phosphatase Lactate Dehydrogenase NT-Pro-B Natriuret Pep Total Protein Albumin Arterial Blood Glucose Arterial Blood Ionized Calcium Urine WBC (Auto) Vancomycin Trough Phenytoin Crossmatch 10/11/20 10/11/20 10/11/20 04:00 04:00 06:08 WBC 27.0 H RBC Hgb Hct MCV MCH MCHC RDW 17.7 H Plt Count Lymph % (Auto) 6.3 L [place] % (Auto) Lymph # (Auto) [place] # (Auto) 1.5 H Baso # (Auto) Seg Neutrophils % 87.1 H Seg Neuts % (Manual) Lymphocytes % (Manual) Monocytes % (Manual) Nucleated RBC % Seg Neutrophils # 23.5 H Seg Neutrophils # Man Lymphocytes # (Manual) Monocytes # (Manual) PT INR APTT Fibrinogen D-Dimer ABG pH POC ABG pCO2 POC ABG pO2 ABG pO2 ABG HCO3 ABG Base Excess ABG Hemoglobin ABG Oxyhemoglobin ABG Sodium ABG Potassium ABG Chloride ABG Glucose VBG pH Oxyhemoglobin Carboxyhemoglobin Sodium Potassium 3.2 L Chloride 110.4 H Carbon Dioxide 19 L BUN 22 H Creatinine Glucose 116 H POC Glucose 107 H Random Insulin C-Peptide Lactic Acid Calcium 7.7 L Ionized Calcium Phosphorus Magnesium 1.60 L AST ALT Alkaline Phosphatase Lactate Dehydrogenase NT-Pro-B Natriuret Pep Total Protein Albumin Arterial Blood Glucose Arterial Blood Ionized Calcium Urine WBC (Auto) Vancomycin Trough Phenytoin Crossmatch 10/11/20 10/11/20 10/12/20 11:41 13:26 03:52 WBC RBC Hgb Hct MCV MCH MCHC RDW Plt Count Lymph % (Auto) [place] % (Auto) Lymph # (Auto) [place] # (Auto) Baso # (Auto) Seg Neutrophils % Seg Neuts % (Manual) Lymphocytes % (Manual) Monocytes % (Manual) Nucleated RBC % Seg Neutrophils # Seg Neutrophils # Man Lymphocytes # (Manual) Monocytes # (Manual) PT INR APTT Fibrinogen D-Dimer ABG pH POC ABG pCO2 POC ABG pO2 ABG pO2 ABG HCO3 ABG Base Excess ABG Hemoglobin ABG Oxyhemoglobin ABG Sodium ABG Potassium ABG Chloride ABG Glucose VBG pH Oxyhemoglobin Carboxyhemoglobin Sodium Potassium Chloride Carbon Dioxide BUN Creatinine Glucose POC Glucose 116 H 114 H Random Insulin C-Peptide Lactic Acid Calcium Ionized Calcium Phosphorus Magnesium AST ALT Alkaline Phosphatase Lactate Dehydrogenase NT-Pro-B Natriuret Pep Total Protein Albumin Arterial Blood Glucose Arterial Blood Ionized Calcium Urine WBC (Auto) 24.0 H Vancomycin Trough Phenytoin Crossmatch 10/12/20 10/12/20 10/12/20 04:24 14:47 21:33 WBC RBC Hgb Hct MCV MCH MCHC RDW Plt Count Lymph % (Auto) [place] % (Auto) Lymph # (Auto) [place] # (Auto) Baso # (Auto) Seg Neutrophils % Seg Neuts % (Manual) Lymphocytes % (Manual) Monocytes % (Manual) Nucleated RBC % Seg Neutrophils # Seg Neutrophils # Man Lymphocytes # (Manual) Monocytes # (Manual) PT INR APTT Fibrinogen D-Dimer ABG pH POC ABG pCO2 POC ABG pO2 ABG pO2 ABG HCO3 ABG Base Excess ABG Hemoglobin ABG Oxyhemoglobin ABG Sodium ABG Potassium ABG Chloride ABG Glucose VBG pH Oxyhemoglobin Carboxyhemoglobin Sodium Potassium Chloride 109.9 H Carbon Dioxide 13 L BUN 18 H Creatinine Glucose 119 H POC Glucose 107 H Random Insulin C-Peptide Lactic Acid Calcium 7.6 L Ionized Calcium Phosphorus Magnesium 1.60 L AST ALT Alkaline Phosphatase Lactate Dehydrogenase NT-Pro-B Natriuret Pep Total Protein Albumin Arterial Blood Glucose Arterial Blood Ionized Calcium Urine WBC (Auto) Vancomycin Trough Phenytoin Crossmatch 10/12/20 10/12/20 10/13/20 Unknown Unknown 07:00 WBC 24.3 H RBC 3.38 L Hgb 9.8 L Hct MCV MCH MCHC RDW 18.7 H Plt Count Lymph % (Auto) [place] % (Auto) Lymph # (Auto) [place] # (Auto) Baso # (Auto) Seg Neutrophils % Seg Neuts % (Manual) 93.5 H Lymphocytes % (Manual) 4.5 L Monocytes % (Manual) Nucleated RBC % Seg Neutrophils # Seg Neutrophils # Man 22.7 H Lymphocytes # (Manual) 1.1 L Monocytes # (Manual) PT INR APTT Fibrinogen D-Dimer ABG pH POC ABG pCO2 POC ABG pO2 ABG pO2 ABG HCO3 ABG Base Excess ABG Hemoglobin ABG Oxyhemoglobin ABG Sodium ABG Potassium ABG Chloride ABG Glucose VBG pH Oxyhemoglobin Carboxyhemoglobin Sodium 135 L D Potassium 3.1 L Chloride Carbon Dioxide 17 L BUN Creatinine Glucose 510 H* POC Glucose Random Insulin C-Peptide Lactic Acid Calcium 7.2 L Ionized Calcium Phosphorus Magnesium AST ALT Alkaline Phosphatase Lactate Dehydrogenase NT-Pro-B Natriuret Pep Total Protein Albumin Arterial Blood Glucose Arterial Blood Ionized Calcium Urine WBC (Auto) Vancomycin Trough Phenytoin 5.7 L Crossmatch 10/13/20 10/13/20 10/13/20 07:00 07:00 07:18 WBC 23.6 H RBC 3.26 L Hgb 9.4 L Hct 28.7 L MCV MCH MCHC RDW 18.3 H Plt Count Lymph % (Auto) [place] % (Auto) Lymph # (Auto) [place] # (Auto) Baso # (Auto) Seg Neutrophils % Seg Neuts % (Manual) Lymphocytes % (Manual) Monocytes % (Manual) Nucleated RBC % Seg Neutrophils # Seg Neutrophils # Man Lymphocytes # (Manual) Monocytes # (Manual) PT INR APTT Fibrinogen D-Dimer ABG pH 7.473 H POC ABG pCO2 20.7 L POC ABG pO2 137.9 H ABG pO2 ABG HCO3 ABG Base Excess ABG Hemoglobin 11.2 L ABG Oxyhemoglobin 98.3 H ABG Sodium 135.9 L ABG Potassium ABG Chloride 111.0 H ABG Glucose 109 H VBG pH Oxyhemoglobin Carboxyhemoglobin 0.3 L Sodium 135 L Potassium 3.5 L Chloride 109.1 H Carbon Dioxide 18 L BUN Creatinine Glucose POC Glucose Random Insulin C-Peptide Lactic Acid Calcium 7.3 L Ionized Calcium Phosphorus Magnesium 1.60 L AST ALT Alkaline Phosphatase Lactate Dehydrogenase NT-Pro-B Natriuret Pep Total Protein Albumin Arterial Blood Glucose 109 H Arterial Blood Ionized Calcium Urine WBC (Auto) Vancomycin Trough Phenytoin Crossmatch 10/14/20 10/14/20 10/15/20 04:00 04:00 05:50 WBC 28.6 H 23.2 H RBC 3.61 L 3.43 L Hgb 9.9 L Hct 30.0 L MCV MCH MCHC RDW 18.3 H 18.2 H Plt Count Lymph % (Auto) [place] % (Auto) Lymph # (Auto) [place] # (Auto) Baso # (Auto) Seg Neutrophils % Seg Neuts % (Manual) 88.0 H 90.0 H Lymphocytes % (Manual) 5.0 L 4.0 L Monocytes % (Manual) Nucleated RBC % Seg Neutrophils # Seg Neutrophils # Man 25.2 H 20.9 H Lymphocytes # (Manual) 0.9 L Monocytes # (Manual) 1.4 H 0.9 H PT INR APTT Fibrinogen D-Dimer ABG pH POC ABG pCO2 POC ABG pO2 ABG pO2 ABG HCO3 ABG Base Excess ABG Hemoglobin ABG Oxyhemoglobin ABG Sodium ABG Potassium ABG Chloride ABG Glucose VBG pH Oxyhemoglobin Carboxyhemoglobin Sodium Potassium Chloride 109.9 H Carbon Dioxide 17 L BUN Creatinine Glucose POC Glucose Random Insulin C-Peptide Lactic Acid Calcium Ionized Calcium Phosphorus Magnesium AST ALT Alkaline Phosphatase Lactate Dehydrogenase NT-Pro-B Natriuret Pep Total Protein Albumin Arterial Blood Glucose Arterial Blood Ionized Calcium Urine WBC (Auto) Vancomycin Trough Phenytoin Crossmatch 10/15/20 10/16/20 10/17/20 05:50 11:57 04:57 WBC 15.2 H RBC 3.43 L Hgb Hct MCV MCH MCHC RDW 18.1 H Plt Count Lymph % (Auto) [place] % (Auto) Lymph # (Auto) [place] # (Auto) Baso # (Auto) Seg Neutrophils % Seg Neuts % (Manual) Lymphocytes % (Manual) Monocytes % (Manual) Nucleated RBC % Seg Neutrophils # Seg Neutrophils # Man Lymphocytes # (Manual) Monocytes # (Manual) PT INR APTT Fibrinogen D-Dimer ABG pH POC ABG pCO2 POC ABG pO2 ABG pO2 ABG HCO3 ABG Base Excess ABG Hemoglobin ABG Oxyhemoglobin ABG Sodium ABG Potassium ABG Chloride ABG Glucose VBG pH Oxyhemoglobin Carboxyhemoglobin Sodium Potassium Chloride 110.3 H Carbon Dioxide 18 L BUN Creatinine Glucose 105 H POC Glucose 111 H Random Insulin C-Peptide Lactic Acid Calcium 8.3 L Ionized Calcium Phosphorus Magnesium AST ALT Alkaline Phosphatase Lactate Dehydrogenase NT-Pro-B Natriuret Pep Total Protein Albumin Arterial Blood Glucose Arterial Blood Ionized Calcium Urine WBC (Auto) Vancomycin Trough Phenytoin Crossmatch 10/17/20 10/17/20 10/18/20 05:25 21:16 01:31 WBC RBC Hgb Hct MCV MCH MCHC RDW Plt Count Lymph % (Auto) [place] % (Auto) Lymph # (Auto) [place] # (Auto) Baso # (Auto) Seg Neutrophils % Seg Neuts % (Manual) Lymphocytes % (Manual) Monocytes % (Manual) Nucleated RBC % Seg Neutrophils # Seg Neutrophils # Man Lymphocytes # (Manual) Monocytes # (Manual) PT INR APTT Fibrinogen D-Dimer ABG pH POC ABG pCO2 POC ABG pO2 ABG pO2 ABG HCO3 ABG Base Excess ABG Hemoglobin ABG Oxyhemoglobin ABG Sodium ABG Potassium ABG Chloride ABG Glucose VBG pH Oxyhemoglobin Carboxyhemoglobin Sodium Potassium Chloride Carbon Dioxide BUN Creatinine Glucose POC Glucose 107 H 106 H 119 H Random Insulin C-Peptide Lactic Acid Calcium Ionized Calcium Phosphorus Magnesium AST ALT Alkaline Phosphatase Lactate Dehydrogenase NT-Pro-B Natriuret Pep Total Protein Albumin Arterial Blood Glucose Arterial Blood Ionized Calcium Urine WBC (Auto) Vancomycin Trough Phenytoin Crossmatch 10/18/20 10/18/20 10/19/20 05:45 11:23 01:14 WBC RBC Hgb Hct MCV MCH MCHC RDW Plt Count Lymph % (Auto) [place] % (Auto) Lymph # (Auto) [place] # (Auto) Baso # (Auto) Seg Neutrophils % Seg Neuts % (Manual) Lymphocytes % (Manual) Monocytes % (Manual) Nucleated RBC % Seg Neutrophils # Seg Neutrophils # Man Lymphocytes # (Manual) Monocytes # (Manual) PT INR APTT Fibrinogen D-Dimer ABG pH POC ABG pCO2 POC ABG pO2 ABG pO2 ABG HCO3 ABG Base Excess ABG Hemoglobin ABG Oxyhemoglobin ABG Sodium ABG Potassium ABG Chloride ABG Glucose VBG pH Oxyhemoglobin Carboxyhemoglobin Sodium Potassium Chloride Carbon Dioxide BUN Creatinine Glucose POC Glucose 106 H 115 H 108 H Random Insulin C-Peptide Lactic Acid Calcium Ionized Calcium Phosphorus Magnesium AST ALT Alkaline Phosphatase Lactate Dehydrogenase NT-Pro-B Natriuret Pep Total Protein Albumin Arterial Blood Glucose Arterial Blood Ionized Calcium Urine WBC (Auto) Vancomycin Trough Phenytoin Crossmatch 10/19/20 10/20/20 10/20/20 09:57 05:40 07:59 WBC RBC Hgb Hct MCV MCH MCHC RDW Plt Count Lymph % (Auto) [place] % (Auto) Lymph # (Auto) [place] # (Auto) Baso # (Auto) Seg Neutrophils % Seg Neuts % (Manual) Lymphocytes % (Manual) Monocytes % (Manual) Nucleated RBC % Seg Neutrophils # Seg Neutrophils # Man Lymphocytes # (Manual) Monocytes # (Manual) PT INR APTT Fibrinogen D-Dimer ABG pH POC ABG pCO2 POC ABG pO2 ABG pO2 ABG HCO3 ABG Base Excess ABG Hemoglobin ABG Oxyhemoglobin ABG Sodium ABG Potassium ABG Chloride ABG Glucose VBG pH Oxyhemoglobin Carboxyhemoglobin Sodium Potassium Chloride Carbon Dioxide BUN Creatinine Glucose 106 H POC Glucose 122 H 109 H Random Insulin C-Peptide Lactic Acid Calcium Ionized Calcium Phosphorus Magnesium AST ALT Alkaline Phosphatase Lactate Dehydrogenase NT-Pro-B Natriuret Pep Total Protein Albumin Arterial Blood Glucose Arterial Blood Ionized Calcium Urine WBC (Auto) Vancomycin Trough Phenytoin Crossmatch 10/20/20 10/20/20 10/21/20 16:52 16:52 13:54 WBC 18.8 H 17.0 H RBC Hgb Hct MCV MCH MCHC RDW 17.7 H 17.8 H Plt Count 547 H 544 H Lymph % (Auto) 11.2 L [place] % (Auto) 8.1 H Lymph # (Auto) [place] # (Auto) 1.5 H Baso # (Auto) 0.2 H Seg Neutrophils % 78.8 H Seg Neuts % (Manual) Lymphocytes % (Manual) Monocytes % (Manual) Nucleated RBC % Seg Neutrophils # 14.8 H Seg Neutrophils # Man Lymphocytes # (Manual) Monocytes # (Manual) PT INR APTT Fibrinogen D-Dimer ABG pH POC ABG pCO2 POC ABG pO2 ABG pO2 ABG HCO3 ABG Base Excess ABG Hemoglobin ABG Oxyhemoglobin ABG Sodium ABG Potassium ABG Chloride ABG Glucose VBG pH Oxyhemoglobin Carboxyhemoglobin Sodium Potassium Chloride Carbon Dioxide BUN Creatinine Glucose POC Glucose Random Insulin C-Peptide Lactic Acid Calcium Ionized Calcium Phosphorus Magnesium AST ALT Alkaline Phosphatase Lactate Dehydrogenase NT-Pro-B Natriuret Pep Total Protein Albumin Arterial Blood Glucose Arterial Blood Ionized Calcium Urine WBC (Auto) Vancomycin Trough 34.5 H Phenytoin Crossmatch 10/21/20 10/22/20 10/23/20 13:54 07:26 05:34 WBC 18.7 H 13.0 H RBC 3.64 L 3.50 L Hgb Hct 30.0 L MCV MCH MCHC 35 H RDW 17.7 H 17.6 H Plt Count 502 H 503 H Lymph % (Auto) [place] % (Auto) Lymph # (Auto) [place] # (Auto) Baso # (Auto) Seg Neutrophils % Seg Neuts % (Manual) Lymphocytes % (Manual) Monocytes % (Manual) Nucleated RBC % Seg Neutrophils # Seg Neutrophils # Man Lymphocytes # (Manual) Monocytes # (Manual) PT INR APTT Fibrinogen D-Dimer ABG pH POC ABG pCO2 POC ABG pO2 ABG pO2 ABG HCO3 ABG Base Excess ABG Hemoglobin ABG Oxyhemoglobin ABG Sodium ABG Potassium ABG Chloride ABG Glucose VBG pH Oxyhemoglobin Carboxyhemoglobin Sodium 136 L Potassium Chloride Carbon Dioxide BUN Creatinine Glucose 120 H POC Glucose Random Insulin C-Peptide Lactic Acid Calcium Ionized Calcium Phosphorus Magnesium AST ALT Alkaline Phosphatase Lactate Dehydrogenase NT-Pro-B Natriuret Pep Total Protein Albumin Arterial Blood Glucose Arterial Blood Ionized Calcium Urine WBC (Auto) Vancomycin Trough Phenytoin Crossmatch 10/23/20 10/26/20 10/27/20 05:34 10:30 07:53 WBC 13.6 H RBC 3.38 L Hgb 10.0 L Hct 28.8 L MCV MCH MCHC 35 H RDW 17.6 H Plt Count Lymph % (Auto) [place] % (Auto) Lymph # (Auto) [place] # (Auto) Baso # (Auto) Seg Neutrophils % Seg Neuts % (Manual) Lymphocytes % (Manual) Monocytes % (Manual) Nucleated RBC % Seg Neutrophils # Seg Neutrophils # Man Lymphocytes # (Manual) Monocytes # (Manual) PT INR APTT Fibrinogen D-Dimer ABG pH 7.459 H POC ABG pCO2 POC ABG pO2 ABG pO2 112.2 H ABG HCO3 ABG Base Excess ABG Hemoglobin ABG Oxyhemoglobin ABG Sodium ABG Potassium ABG Chloride ABG Glucose VBG pH Oxyhemoglobin Carboxyhemoglobin Sodium 135 L Potassium Chloride Carbon Dioxide BUN Creatinine Glucose 105 H POC Glucose Random Insulin C-Peptide Lactic Acid Calcium Ionized Calcium Phosphorus Magnesium AST ALT Alkaline Phosphatase Lactate Dehydrogenase NT-Pro-B Natriuret Pep Total Protein Albumin Arterial Blood Glucose Arterial Blood Ionized Calcium Urine WBC (Auto) Vancomycin Trough Phenytoin Crossmatch 10/27/20 10/27/20 10/28/20 07:53 11:31 05:19 WBC RBC Hgb Hct MCV MCH MCHC RDW Plt Count Lymph % (Auto) [place] % (Auto) Lymph # (Auto) [place] # (Auto) Baso # (Auto) Seg Neutrophils % Seg Neuts % (Manual) Lymphocytes % (Manual) Monocytes % (Manual) Nucleated RBC % Seg Neutrophils # Seg Neutrophils # Man Lymphocytes # (Manual) Monocytes # (Manual) PT INR APTT Fibrinogen D-Dimer ABG pH POC ABG pCO2 POC ABG pO2 ABG pO2 ABG HCO3 ABG Base Excess ABG Hemoglobin ABG Oxyhemoglobin ABG Sodium ABG Potassium ABG Chloride ABG Glucose VBG pH Oxyhemoglobin Carboxyhemoglobin Sodium Potassium Chloride Carbon Dioxide BUN 20 H Creatinine Glucose 112 H POC Glucose 113 H 112 H Random Insulin C-Peptide Lactic Acid Calcium Ionized Calcium Phosphorus Magnesium AST 83 H ALT Alkaline Phosphatase Lactate Dehydrogenase NT-Pro-B Natriuret Pep Total Protein Albumin 3.8 L Arterial Blood Glucose Arterial Blood Ionized Calcium Urine WBC (Auto) Vancomycin Trough Phenytoin Crossmatch 10/29/20 10/29/20 10/29/20 07:56 07:56 11:37 WBC 13.6 H RBC Hgb Hct MCV MCH MCHC RDW 17.0 H Plt Count Lymph % (Auto) [place] % (Auto) Lymph # (Auto) [place] # (Auto) Baso # (Auto) Seg Neutrophils % Seg Neuts % (Manual) 80.0 H Lymphocytes % (Manual) Monocytes % (Manual) Nucleated RBC % Seg Neutrophils # Seg Neutrophils # Man 10.9 H Lymphocytes # (Manual) Monocytes # (Manual) PT INR APTT Fibrinogen D-Dimer ABG pH POC ABG pCO2 POC ABG pO2 ABG pO2 ABG HCO3 ABG Base Excess ABG Hemoglobin ABG Oxyhemoglobin ABG Sodium ABG Potassium ABG Chloride ABG Glucose VBG pH Oxyhemoglobin Carboxyhemoglobin Sodium Potassium Chloride Carbon Dioxide BUN Creatinine Glucose POC Glucose 108 H Random Insulin C-Peptide Lactic Acid Calcium Ionized Calcium Phosphorus 4.70 H Magnesium AST ALT Alkaline Phosphatase Lactate Dehydrogenase NT-Pro-B Natriuret Pep Total Protein Albumin Arterial Blood Glucose Arterial Blood Ionized Calcium Urine WBC (Auto) Vancomycin Trough Phenytoin Crossmatch 10/29/20 10/30/20 10/30/20 13:32 12:11 17:19 WBC RBC Hgb Hct MCV MCH MCHC RDW Plt Count Lymph % (Auto) [place] % (Auto) Lymph # (Auto) [place] # (Auto) Baso # (Auto) Seg Neutrophils % Seg Neuts % (Manual) Lymphocytes % (Manual) Monocytes % (Manual) Nucleated RBC % Seg Neutrophils # Seg Neutrophils # Man Lymphocytes # (Manual) Monocytes # (Manual) PT INR APTT Fibrinogen D-Dimer ABG pH POC ABG pCO2 POC ABG pO2 ABG pO2 ABG HCO3 ABG Base Excess ABG Hemoglobin ABG Oxyhemoglobin ABG Sodium ABG Potassium ABG Chloride ABG Glucose VBG pH Oxyhemoglobin Carboxyhemoglobin Sodium Potassium Chloride Carbon Dioxide BUN Creatinine Glucose POC Glucose 108 H 106 H 107 H Random Insulin C-Peptide Lactic Acid Calcium Ionized Calcium Phosphorus Magnesium AST ALT Alkaline Phosphatase Lactate Dehydrogenase NT-Pro-B Natriuret Pep Total Protein Albumin Arterial Blood Glucose Arterial Blood Ionized Calcium Urine WBC (Auto) Vancomycin Trough Phenytoin Crossmatch 10/31/20 10/31/20 11/01/20 03:20 05:43 04:55 WBC RBC Hgb Hct MCV MCH MCHC RDW Plt Count Lymph % (Auto) [place] % (Auto) Lymph # (Auto) [place] # (Auto) Baso # (Auto) Seg Neutrophils % Seg Neuts % (Manual) Lymphocytes % (Manual) Monocytes % (Manual) Nucleated RBC % Seg Neutrophils # Seg Neutrophils # Man Lymphocytes # (Manual) Monocytes # (Manual) PT INR APTT Fibrinogen D-Dimer ABG pH POC ABG pCO2 POC ABG pO2 ABG pO2 ABG HCO3 ABG Base Excess ABG Hemoglobin ABG Oxyhemoglobin ABG Sodium ABG Potassium ABG Chloride ABG Glucose VBG pH Oxyhemoglobin Carboxyhemoglobin Sodium Potassium Chloride Carbon Dioxide BUN Creatinine Glucose POC Glucose 108 H 115 H 108 H Random Insulin C-Peptide Lactic Acid Calcium Ionized Calcium Phosphorus Magnesium AST ALT Alkaline Phosphatase Lactate Dehydrogenase NT-Pro-B Natriuret Pep Total Protein Albumin Arterial Blood Glucose Arterial Blood Ionized Calcium Urine WBC (Auto) Vancomycin Trough Phenytoin Crossmatch 11/01/20 11/01/20 11/01/20 05:01 16:47 21:36 WBC RBC Hgb Hct MCV MCH MCHC RDW Plt Count Lymph % (Auto) [place] % (Auto) Lymph # (Auto) [place] # (Auto) Baso # (Auto) Seg Neutrophils % Seg Neuts % (Manual) Lymphocytes % (Manual) Monocytes % (Manual) Nucleated RBC % Seg Neutrophils # Seg Neutrophils # Man Lymphocytes # (Manual) Monocytes # (Manual) PT INR APTT Fibrinogen D-Dimer ABG pH POC ABG pCO2 POC ABG pO2 ABG pO2 ABG HCO3 ABG Base Excess ABG Hemoglobin ABG Oxyhemoglobin ABG Sodium ABG Potassium ABG Chloride ABG Glucose VBG pH Oxyhemoglobin Carboxyhemoglobin Sodium 135 L Potassium Chloride Carbon Dioxide BUN Creatinine Glucose POC Glucose 116 H 112 H Random Insulin C-Peptide Lactic Acid Calcium Ionized Calcium Phosphorus Magnesium AST 93 H ALT Alkaline Phosphatase 132 H Lactate Dehydrogenase NT-Pro-B Natriuret Pep Total Protein Albumin 3.6 L Arterial Blood Glucose Arterial Blood Ionized Calcium Urine WBC (Auto) Vancomycin Trough Phenytoin Crossmatch 11/02/20 11/02/20 11/02/20 17:45 19:19 19:19 WBC RBC Hgb Hct MCV MCH MCHC RDW Plt Count Lymph % (Auto) [place] % (Auto) Lymph # (Auto) [place] # (Auto) Baso # (Auto) Seg Neutrophils % Seg Neuts % (Manual) Lymphocytes % (Manual) Monocytes % (Manual) Nucleated RBC % Seg Neutrophils # Seg Neutrophils # Man Lymphocytes # (Manual) Monocytes # (Manual) PT INR APTT Fibrinogen D-Dimer ABG pH POC ABG pCO2 POC ABG pO2 ABG pO2 ABG HCO3 ABG Base Excess ABG Hemoglobin ABG Oxyhemoglobin ABG Sodium ABG Potassium ABG Chloride ABG Glucose VBG pH Oxyhemoglobin Carboxyhemoglobin Sodium Potassium Chloride Carbon Dioxide BUN Creatinine Glucose POC Glucose 107 H Random Insulin 43.2 H C-Peptide 6.23 H Lactic Acid Calcium Ionized Calcium Phosphorus Magnesium AST ALT Alkaline Phosphatase Lactate Dehydrogenase NT-Pro-B Natriuret Pep Total Protein Albumin Arterial Blood Glucose Arterial Blood Ionized Calcium Urine WBC (Auto) Vancomycin Trough Phenytoin Crossmatch 11/03/20 11/04/20 11/04/20 21:49 05:00 05:00 WBC 13.8 H RBC Hgb Hct MCV MCH MCHC RDW 16.6 H Plt Count Lymph % (Auto) 11.8 L [place] % (Auto) 11.0 H Lymph # (Auto) [place] # (Auto) 1.5 H Baso # (Auto) Seg Neutrophils % 75.1 H Seg Neuts % (Manual) Lymphocytes % (Manual) Monocytes % (Manual) Nucleated RBC % Seg Neutrophils # 10.4 H Seg Neutrophils # Man Lymphocytes # (Manual) Monocytes # (Manual) PT INR APTT Fibrinogen D-Dimer ABG pH POC ABG pCO2 POC ABG pO2 ABG pO2 ABG HCO3 ABG Base Excess ABG Hemoglobin ABG Oxyhemoglobin ABG Sodium ABG Potassium ABG Chloride ABG Glucose VBG pH Oxyhemoglobin Carboxyhemoglobin Sodium Potassium Chloride Carbon Dioxide BUN Creatinine Glucose 112 H POC Glucose 109 H Random Insulin C-Peptide Lactic Acid Calcium Ionized Calcium Phosphorus Magnesium AST 90 H ALT Alkaline Phosphatase Lactate Dehydrogenase NT-Pro-B Natriuret Pep Total Protein Albumin 3.8 L Arterial Blood Glucose Arterial Blood Ionized Calcium Urine WBC (Auto) Vancomycin Trough Phenytoin Crossmatch 11/04/20 11/04/20 11/05/20 06:03 23:47 07:47 WBC RBC Hgb Hct MCV MCH MCHC RDW Plt Count Lymph % (Auto) [place] % (Auto) Lymph # (Auto) [place] # (Auto) Baso # (Auto) Seg Neutrophils % Seg Neuts % (Manual) Lymphocytes % (Manual) Monocytes % (Manual) Nucleated RBC % Seg Neutrophils # Seg Neutrophils # Man Lymphocytes # (Manual) Monocytes # (Manual) PT INR APTT Fibrinogen D-Dimer ABG pH POC ABG pCO2 POC ABG pO2 ABG pO2 ABG HCO3 ABG Base Excess ABG Hemoglobin ABG Oxyhemoglobin ABG Sodium ABG Potassium ABG Chloride ABG Glucose VBG pH Oxyhemoglobin Carboxyhemoglobin Sodium Potassium Chloride Carbon Dioxide BUN Creatinine Glucose POC Glucose 107 H 121 H 111 H Random Insulin C-Peptide Lactic Acid Calcium Ionized Calcium Phosphorus Magnesium AST ALT Alkaline Phosphatase Lactate Dehydrogenase NT-Pro-B Natriuret Pep Total Protein Albumin Arterial Blood Glucose Arterial Blood Ionized Calcium Urine WBC (Auto) Vancomycin Trough Phenytoin Crossmatch 11/05/20 11/06/20 11/06/20 23:24 17:04 23:36 WBC RBC Hgb Hct MCV MCH MCHC RDW Plt Count Lymph % (Auto) [place] % (Auto) Lymph # (Auto) [place] # (Auto) Baso # (Auto) Seg Neutrophils % Seg Neuts % (Manual) Lymphocytes % (Manual) Monocytes % (Manual) Nucleated RBC % Seg Neutrophils # Seg Neutrophils # Man Lymphocytes # (Manual) Monocytes # (Manual) PT INR APTT Fibrinogen D-Dimer ABG pH POC ABG pCO2 POC ABG pO2 ABG pO2 ABG HCO3 ABG Base Excess ABG Hemoglobin ABG Oxyhemoglobin ABG Sodium ABG Potassium ABG Chloride ABG Glucose VBG pH Oxyhemoglobin Carboxyhemoglobin Sodium Potassium Chloride Carbon Dioxide BUN Creatinine Glucose POC Glucose 111 H 112 H 108 H Random Insulin C-Peptide Lactic Acid Calcium Ionized Calcium Phosphorus Magnesium AST ALT Alkaline Phosphatase Lactate Dehydrogenase NT-Pro-B Natriuret Pep Total Protein Albumin Arterial Blood Glucose Arterial Blood Ionized Calcium Urine WBC (Auto) Vancomycin Trough Phenytoin Crossmatch 11/07/20 11/07/20 11/07/20 03:33 04:44 04:44 WBC RBC Hgb Hct MCV MCH MCHC RDW 16.6 H Plt Count Lymph % (Auto) [place] % (Auto) 13.1 H Lymph # (Auto) [place] # (Auto) 1.3 H Baso # (Auto) Seg Neutrophils % Seg Neuts % (Manual) Lymphocytes % (Manual) Monocytes % (Manual) Nucleated RBC % Seg Neutrophils # Seg Neutrophils # Man Lymphocytes # (Manual) Monocytes # (Manual) PT INR APTT Fibrinogen D-Dimer ABG pH POC ABG pCO2 POC ABG pO2 ABG pO2 ABG HCO3 ABG Base Excess ABG Hemoglobin ABG Oxyhemoglobin ABG Sodium ABG Potassium ABG Chloride ABG Glucose VBG pH Oxyhemoglobin Carboxyhemoglobin Sodium Potassium Chloride Carbon Dioxide BUN Creatinine Glucose 103 H POC Glucose 109 H Random Insulin C-Peptide Lactic Acid Calcium Ionized Calcium Phosphorus 5.30 H Magnesium AST ALT Alkaline Phosphatase Lactate Dehydrogenase NT-Pro-B Natriuret Pep Total Protein Albumin Arterial Blood Glucose Arterial Blood Ionized Calcium Urine WBC (Auto) Vancomycin Trough Phenytoin Crossmatch 11/07/20 11/07/20 11/08/20 15:58 23:46 07:30 WBC RBC Hgb Hct MCV MCH MCHC RDW Plt Count Lymph % (Auto) [place] % (Auto) Lymph # (Auto) [place] # (Auto) Baso # (Auto) Seg Neutrophils % Seg Neuts % (Manual) Lymphocytes % (Manual) Monocytes % (Manual) Nucleated RBC % Seg Neutrophils # Seg Neutrophils # Man Lymphocytes # (Manual) Monocytes # (Manual) PT INR APTT Fibrinogen D-Dimer ABG pH POC ABG pCO2 POC ABG pO2 ABG pO2 ABG HCO3 ABG Base Excess ABG Hemoglobin ABG Oxyhemoglobin ABG Sodium ABG Potassium ABG Chloride ABG Glucose VBG pH Oxyhemoglobin Carboxyhemoglobin Sodium Potassium Chloride Carbon Dioxide BUN Creatinine Glucose POC Glucose 108 H 106 H 109 H Random Insulin C-Peptide Lactic Acid Calcium Ionized Calcium Phosphorus Magnesium AST ALT Alkaline Phosphatase Lactate Dehydrogenase NT-Pro-B Natriuret Pep Total Protein Albumin Arterial Blood Glucose Arterial Blood Ionized Calcium Urine WBC (Auto) Vancomycin Trough Phenytoin Crossmatch 11/08/20 11/08/20 11/09/20 11:48 23:32 17:10 WBC RBC Hgb Hct MCV MCH MCHC RDW Plt Count Lymph % (Auto) [place] % (Auto) Lymph # (Auto) [place] # (Auto) Baso # (Auto) Seg Neutrophils % Seg Neuts % (Manual) Lymphocytes % (Manual) Monocytes % (Manual) Nucleated RBC % Seg Neutrophils # Seg Neutrophils # Man Lymphocytes # (Manual) Monocytes # (Manual) PT INR APTT Fibrinogen D-Dimer ABG pH POC ABG pCO2 POC ABG pO2 ABG pO2 ABG HCO3 ABG Base Excess ABG Hemoglobin ABG Oxyhemoglobin ABG Sodium ABG Potassium ABG Chloride ABG Glucose VBG pH Oxyhemoglobin Carboxyhemoglobin Sodium Potassium Chloride Carbon Dioxide BUN Creatinine Glucose POC Glucose 110 H 116 H 112 H Random Insulin C-Peptide Lactic Acid Calcium Ionized Calcium Phosphorus Magnesium AST ALT Alkaline Phosphatase Lactate Dehydrogenase NT-Pro-B Natriuret Pep Total Protein Albumin Arterial Blood Glucose Arterial Blood Ionized Calcium Urine WBC (Auto) Vancomycin Trough Phenytoin Crossmatch 11/09/20 11/10/20 11/10/20 21:42 05:49 07:17 WBC RBC Hgb Hct MCV MCH MCHC RDW Plt Count Lymph % (Auto) [place] % (Auto) Lymph # (Auto) [place] # (Auto) Baso # (Auto) Seg Neutrophils % Seg Neuts % (Manual) Lymphocytes % (Manual) Monocytes % (Manual) Nucleated RBC % Seg Neutrophils # Seg Neutrophils # Man Lymphocytes # (Manual) Monocytes # (Manual) PT INR APTT Fibrinogen D-Dimer ABG pH POC ABG pCO2 POC ABG pO2 ABG pO2 ABG HCO3 ABG Base Excess ABG Hemoglobin ABG Oxyhemoglobin ABG Sodium ABG Potassium ABG Chloride ABG Glucose VBG pH Oxyhemoglobin Carboxyhemoglobin Sodium Potassium Chloride Carbon Dioxide BUN Creatinine Glucose POC Glucose 110 H 108 H 111 H Random Insulin C-Peptide Lactic Acid Calcium Ionized Calcium Phosphorus Magnesium AST ALT Alkaline Phosphatase Lactate Dehydrogenase NT-Pro-B Natriuret Pep Total Protein Albumin Arterial Blood Glucose Arterial Blood Ionized Calcium Urine WBC (Auto) Vancomycin Trough Phenytoin Crossmatch 11/10/20 11/11/20 11/11/20 20:36 04:58 11:56 WBC RBC Hgb Hct MCV MCH MCHC RDW Plt Count Lymph % (Auto) [place] % (Auto) Lymph # (Auto) [place] # (Auto) Baso # (Auto) Seg Neutrophils % Seg Neuts % (Manual) Lymphocytes % (Manual) Monocytes % (Manual) Nucleated RBC % Seg Neutrophils # Seg Neutrophils # Man Lymphocytes # (Manual) Monocytes # (Manual) PT INR APTT Fibrinogen D-Dimer ABG pH POC ABG pCO2 POC ABG pO2 ABG pO2 ABG HCO3 ABG Base Excess ABG Hemoglobin ABG Oxyhemoglobin ABG Sodium ABG Potassium ABG Chloride ABG Glucose VBG pH Oxyhemoglobin Carboxyhemoglobin Sodium Potassium Chloride Carbon Dioxide BUN Creatinine Glucose POC Glucose 111 H 109 H 109 H Random Insulin C-Peptide Lactic Acid Calcium Ionized Calcium Phosphorus Magnesium AST ALT Alkaline Phosphatase Lactate Dehydrogenase NT-Pro-B Natriuret Pep Total Protein Albumin Arterial Blood Glucose Arterial Blood Ionized Calcium Urine WBC (Auto) Vancomycin Trough Phenytoin Crossmatch 11/11/20 11/11/20 11/11/20 13:50 13:50 15:50 WBC RBC Hgb Hct MCV MCH MCHC RDW Plt Count Lymph % (Auto) [place] % (Auto) Lymph # (Auto) [place] # (Auto) Baso # (Auto) Seg Neutrophils % Seg Neuts % (Manual) Lymphocytes % (Manual) Monocytes % (Manual) Nucleated RBC % Seg Neutrophils # Seg Neutrophils # Man Lymphocytes # (Manual) Monocytes # (Manual) PT INR APTT Fibrinogen D-Dimer 1974.47 H ABG pH POC ABG pCO2 POC ABG pO2 ABG pO2 ABG HCO3 ABG Base Excess ABG Hemoglobin ABG Oxyhemoglobin ABG Sodium ABG Potassium ABG Chloride ABG Glucose VBG pH Oxyhemoglobin Carboxyhemoglobin Sodium Potassium Chloride Carbon Dioxide BUN Creatinine Glucose POC Glucose 107 H Random Insulin C-Peptide Lactic Acid Calcium Ionized Calcium Phosphorus Magnesium AST ALT Alkaline Phosphatase Lactate Dehydrogenase NT-Pro-B Natriuret Pep Total Protein Albumin Arterial Blood Glucose Arterial Blood Ionized Calcium Urine WBC (Auto) > 182.0 H Vancomycin Trough Phenytoin Crossmatch 11/11/20 11/12/20 11/12/20 23:17 11:33 22:20 WBC RBC Hgb Hct MCV MCH MCHC RDW Plt Count Lymph % (Auto) [place] % (Auto) Lymph # (Auto) [place] # (Auto) Baso # (Auto) Seg Neutrophils % Seg Neuts % (Manual) Lymphocytes % (Manual) Monocytes % (Manual) Nucleated RBC % Seg Neutrophils # Seg Neutrophils # Man Lymphocytes # (Manual) Monocytes # (Manual) PT INR APTT Fibrinogen D-Dimer ABG pH POC ABG pCO2 POC ABG pO2 ABG pO2 ABG HCO3 ABG Base Excess ABG Hemoglobin ABG Oxyhemoglobin ABG Sodium ABG Potassium ABG Chloride ABG Glucose VBG pH Oxyhemoglobin Carboxyhemoglobin Sodium Potassium Chloride Carbon Dioxide BUN Creatinine Glucose POC Glucose 119 H 111 H 107 H Random Insulin C-Peptide Lactic Acid Calcium Ionized Calcium Phosphorus Magnesium AST ALT Alkaline Phosphatase Lactate Dehydrogenase NT-Pro-B Natriuret Pep Total Protein Albumin Arterial Blood Glucose Arterial Blood Ionized Calcium Urine WBC (Auto) Vancomycin Trough Phenytoin Crossmatch 11/13/20 01:52 WBC RBC Hgb Hct MCV MCH MCHC RDW Plt Count Lymph % (Auto) [place] % (Auto) Lymph # (Auto) [place] # (Auto) Baso # (Auto) Seg Neutrophils % Seg Neuts % (Manual) Lymphocytes % (Manual) Monocytes % (Manual) Nucleated RBC % Seg Neutrophils # Seg Neutrophils # Man Lymphocytes # (Manual) Monocytes # (Manual) PT INR APTT Fibrinogen D-Dimer ABG pH POC ABG pCO2 POC ABG pO2 ABG pO2 ABG HCO3 ABG Base Excess ABG Hemoglobin ABG Oxyhemoglobin ABG Sodium ABG Potassium ABG Chloride ABG Glucose VBG pH Oxyhemoglobin Carboxyhemoglobin Sodium Potassium Chloride Carbon Dioxide BUN Creatinine Glucose POC Glucose 124 H Random Insulin C-Peptide Lactic Acid Calcium Ionized Calcium Phosphorus Magnesium AST ALT Alkaline Phosphatase Lactate Dehydrogenase NT-Pro-B Natriuret Pep Total Protein Albumin Arterial Blood Glucose Arterial Blood Ionized Calcium Urine WBC (Auto) Vancomycin Trough Phenytoin Crossmatch
[2020-11-13 11:21] LABS: Blood Urea Nitrogen 14 mg/dL (7-17); Calcium 9.7 mg/dL (8.4-10.2); Hemolysis Index 0
[2020-11-13 11:22] LABS: BUN/Creatinine Ratio 23
[2020-11-13] MEDS: ACETAMINOPHEN 325 MG/10.15 ML ORAL LIQD UNIT DOSE FEEDTUBE PRN (11:32)
[2020-11-13] MEDS: cefTRIAXone/NS 1 GM/50 ML 1 GM/50 ML BAG IV SCH (11:32)
[2020-11-13] MEDS: SODIUM BICARBONATE 650 MG TAB PO SCH ×3 (11:33→22:48)
[2020-11-13] MEDS: ENOXAPARIN 40 MG/0.4 ML INJ SUB-Q SCH (11:34)
[2020-11-13] MEDS: FUROSEMIDE 40 MG TAB PO SCH (11:34)
[2020-11-13] MEDS: FAMOTIDINE 20 MG TAB PO SCH ×2 (11:34→22:48)
--- NOTE | 2020-11-13 11:58 | Progress Note ---
Assessment and Plan Cultures: 10/05/2020 Blood culture: no growth 10/11/2020 blood culture: No growth 10/11/2020 tracheal aspirate: Usual respiratory jaylan 10/14/2020 blood culture: Enterobacter, coag negative staph. Sensitivities in "scanned reports" 10/15/2020 blood culture: negative 11/02/2020 blood cultures no growth 11/06/2020 blood culture no growth today A/P: 30-year-old female with GERD, hypertension, seizure disorder was admitted to the hospital at 36 weeks with seizures. She became hypoxic and pulseless requiring CPR. Following emergent section, patient developed hemorrhage, DIC. She has been admitted to ICU, remains on the vent: #Intermittent fever: Initially due to Enterobacter bacteremia. Persistent fever of unclear etiology. Likely due to new CAUTI. Repeat CRP and procalcitonin both low. No fever for 48 hours. #Extensive herpes genitalis: Perianal and vaginal #Recent Enterobacter bacteremia: Treated #Status post arrest 10/07/2020: Apparently had a brief code due to ?ET tube clot/plugging. #Initial shock, DIC/persistent fever: Secondary to hemorrhage, ?possible sepsis. Possible pneumonia versus fluid overload. ?Central fever v/s from VTE. Noted diarrhea ? Cdiff + #Acute kidney injury: resolved #Acute respiratory failure: remains on the vent. now has trach #Transaminitis: ?HELLP. #Preeclampsia # hemorrhage: Status post , status post supracervical hysterectomy. #Encephalopathy post cardiac arrest #C. difficile: Completed PO vancomycin #Right axillary acute DVT/elevated D-dimer improved Recs: -Remove Hamlin catheter, UA consistent with UTI-Hamlin placed on 08/29. Discussed with nursing staff -Follow-up urine cultures -Continue ceftriaxone for 3 days for UTI D2 of 4 -Completed Valtrex -monitor fever -Hypoglycemia per primary team Will sign off please call us for any question Violette Dejesus MD [facility] ([facility]) Office [phone] Subjective Date of service: 11/13/20 Principal diagnosis: Eclampsia/HELLP Syndrome, ADOLPH, DIC; s/p , s/p supracervical hyst Interval history: No acute events overnight, low glucose, remains on T-piece is, no fever. Objective - Exam Narrative Exam: General appearance: Alert does not follow commands Eyes: anicteric sclerae, moist conjunctivae; no lid-lag; PERRLA HENT: Normocephalic, Atraumatic; normal external ears, nares open, oropharynx limited rectal tube in place Neck: Trach collar Lungs: Coarse breath sounds bilaterally CV: RRR no murmur Abdomen: Soft, wound with dressing, taking place Extremities: no edema, no cyanosis Skin: Perianal scabs, vaginal area improving Psych: No agitated Neuro: Alert does not follow commands - Constitutional Vitals: Vital Signs Temp Pulse Resp BP Pulse Ox 97.5 F L 104 H 18 129/72 100 11/13/20 08:00 11/13/20 11:33 11/13/20 07:00 11/13/20 11:33 11/13/20 07:00 Temperature -Last 24 Hours Temperature 97.5 F Temperature 98.8 F Temperature 98.4 F Temperature 97.8 F Temperature 99.0 F - Labs CBC & Chem 7: 11/07/20 04:44 11/13/20 10:05 Labs: Abnormal lab results 11/12/20 11/13/20 11/13/20 Range/Units 22:20 01:52 07:33 Glucose (65-100) mg/dL POC Glucose 107 H 124 H 106 H (70-105) mg/dL Phosphorus (2.5-4.5) mg/dL 11/13/20 11/13/20 Range/Units 10:05 11:50 Glucose 114 H (65-100) mg/dL POC Glucose 113 H (70-105) mg/dL Phosphorus 4.60 H (2.5-4.5) mg/dL
[2020-11-13] MEDS: TOPIRAMATE TAB 25 MG TAB PO SCH ×2 (12:10→22:47)
--- NOTE | 2020-11-13 14:07 | Progress Note ---
Assessment and Plan Assessment and plan: 30 y/o female patient with Eclampsia/help syndrome, s/p emergent section with DIC, hemorrhage, supracervical abdominal hysterectomy, acute respiratory failure , tracheostomy on T-piece with morbid obesity, s/p cardiac arrest 12/08/2019 status post CPR per ACLS, acute hypoxic brain injury Acute kidney injury improved, severe shock requiring pressors, DIC septic shock improved, history of C. difficile colitis completed treatment with vancomycin. Tracheostomy on T-piece, continues to require 5 L of oxygen. Herpetic flareup, ID started treatment with antibiotics --Acute hypoxic respiratory failure: Tracheostomy on T-piece , 5 L oxygen, saturating 100% Nebulizers, continue oxygen titrate O2 sats to more than 90% Pulmonary critical following COVID-19 negative C. difficile positive; Patient on contact isolation Completed treatment --Afebrile: Blood, urine, tracheal aspirate cultures New cultures negative to date Monitor off antibiotics Closely monitor --Sepsis; received antibiotics Continue to monitor off antibiotics ID following --Cardiac arrest; 10/07/2020 ,status post CPR --COVID-19 test negative; 10/08/2020 --C. difficile colitis test; positive; 10/16/2020 --Acute metabolic encephalopathy --Acute hypoxic brain injury; Supportive care, closely monitor --Acute kidney injury; vasomotor nephropathy Resolved, renal function within normal limits, closely monitor --Shock; monitor of pressors Blood pressures reasonable level --DIC; sepsis, septic shock, resolved --History of preeclampsia; / hemorrhage Status post hysterectomy --History of C. difficile colitis; completed oral vancomycin --DVT/SVT and right upper extremity Very poor prognosis, Consults recommendations noted and appreciated We will closely monitor the patient and adjust management as needed Plan of care reviewed with the patient's nurse. Brief history; 30 year old -[place] female CHE 10/25/20 at 36w5d who presents with seizures in triage on 10/02/20. Pt was not able to provide history but per pt's , she presented to the hospital to return a 24 hour urine specimen for analysis. She then suddenly reported that she did not feel good. She was taken to labor and delivery and shortly after arrival, she began seizing. During this time, a code met was called because the patient became hypoxic. She was then noted to be without a pulse. Chest compressions were started immediately, and the patient was emergently taken to the operating room for delivery of the fetus. Off note, This patient has had care at [facility] with comanagement by [facility] since 11 wks complicated by ADHD, morbid obesity, generalized anxiety disorder, panic attacks, chronic narcotic use, fibromyalgia, GERD, Irritable Bowel Syndrome, Migraines, h/o endometrial ablation and ovarian vein embolization, genital herpes, insomnia, LGA fetus, nausea and vomiting, polyhydramnios, quad screen positive for Down's Syndrome, and previous x 3. She is GBS negative. , Patient tracheostomy on ventilatory support, unable to wean, continue supportive care poor prognosis 11:30: Pt brought to L&D triage for evaluation of possible labor. Pt accompanied by her spouse. Pt spouse poor historian; unable to obtain history- allergies at this time. Pt taken from registration to triage area via WC. Pt unresponsive, actively seizing with snorous respirations. green end department supervisor, Kassy, called and requesting assistance. 11:35: Multiple staff at bedside. Pt 02 sat 67% on nonrebreather, unable to read BP . Yifan Theodore CRNA, at bedside for intubation and assistance with IV insertion. INT attempt by multiple RNs unsuccessful at this time. 11:42: Pt being bagged by KORIN, 02% 79%. No pulse palpated, compressions on at this time; bharati yuong called and Dr. Newberry preparing OR for emergent c/s. 11:44: Continued compressions on stretcher while transporting pt to OR 1. Pt being bagged with jaw thrust manuever in place by KORIN Stringer student. 11:45: Arrival to OR 1. Dr. Newberry and Dr. Portillo present for emergent c/s. Code team arrived for continued care. patient revived and c/s done Patient has been bleeding from C/s site followed by supracervical hysterectomy for severe bleeding, Patient transfused multiple units of PRBC, Patient in DIC. Patient transferred to the ICU Hospital course; 10/03. Patient seen and examined at bedside this morning. Patient is nonres ponsive and mechanically ventilated. On pressors. Labs reviewed-has leukocytosis, anemia, thrombocytopenia, ADOLPH and lactic acidosis. Started on IV antibiotics to cover possible sepsis secondary to DIC. Hematology oncology recommendations appreciated-needs additional cryoprecipitate and FFP. Monitor D-dimer, fibrinogen and frequent labs. Nephrology consulted for lactic acidosis and ADOLPH. 10/04. Remains mechanically ventilated. [place] antibiotics. Labs shows improved acidosis - lactic acid 3.5. Hb drop noted. Getting transfused 2 units PRBCs. Platelet count is ~40k. Continue to monitor labs closely. Critical care team on board. 10/05; xray reviewed, concerning for multifocal infilrate, likely underlying Pneumonia, will add ID consult to assist with management of this critically ill patient, start tube feed, closely monitor renal system 10/06: Resumed care, remains on mechanical ventilation. No active bleeding, H&H stable. Continue to monitor CBC and BMP. Continue IV antibiotic for underlying pneumonia. Follow critical care and ID recommendation. 10/07: Remains on mechanical ventilation. No active bleeding, H&H stable. Critical care following, wean off ventilation as tolerated. 10/08: Patient had another cardiac arrest last night. Remains on mechanical ventilation, update family. Continue supportive care -poor prognosis 10/09: Called patient mother and discussed about patient care and management. Answered all question to best of my knowledge and family satisfaction. Patient remains on mechanical ventilation, cardiac arrest x2 so far. Critically sick, poor prognosis 10/10: remains on mechanical ventilation. h/h stable, no active bleeding. monitor CBC/BMP 10/11: WBC trended up with diarrhea, started on vancomycin po. remains on MV, off pressor, tolerating TF 10/12: remains on MV, off pressor, tolerating TF. called family for update but unable to reach, could not leave message as it was full. cont supportive care, wean off vent as tolerated. 10/13/2020; patient is on mechanical ventilation, tolerating tube feeding. Patient has labored breathing. Neuro was consulted and recommend MRI. Patient is on Precedex. Rectal tube in place. 10/14/2020; patient is on mechanical ventilation, Precedex. Patient had fever and blood culture ordered. Patient is on IV vancomycin per ID recommendation. Neuro consulted and recommend MRI. Continue to monitor. Prognosis is guarded. 10/15/2020; patient is on mechanical ventilation, Precedex. Patient had fever and blood culture ordered. Patient is on IV vancomycin per ID recommendation. Neuro consulted and recommend MRI. Continue to monitor. Prognosis is guarded. 10/17: Remains with C.DIFF and Bactermia, Poor prognosis. No purposeful movement. MRI and EEG discussed with Intensvisit, Continue aggressive BP control. 10/18: Blood pressure better controlled MRI done 10/15 shows mild improvement in edema. We will continue to monitor mother was at bedside yesterday. Nursing documentation trach and PEG discussed with the mother including goals of care. She is still in denial about the gravity of her daughters her condition which is understandable considering her age. Continue aggressive management at this time. Await for bacteremia to clear by ID before placing PICC line. 10/19: Patient for possible PEG and Trach, ID following, repeat cultures remain negative. Poor prognosis 10/20: Pt noted to DVT and SVT in the RUE, Vascular consult and will also obtain Hematology for possible considering changing in Anticoagulation. CONTINUE TO MONITOR H/H and PLT. Family updated by [employer]ens[employer]. Heparin gtt started. Will check CBC and BMP 10/21: Continue supporive care, Diarrhea now resolving, But still with persistent Fever, May need repeat CT/AP per ID, still with profused Encephalopathy 10/22: Continue supportive care, weaning, awaiting repeat Imaging. FOLLOW Fever curve. Enoxparin restarted 10/23: Continue supportive care, wean as tolerated. 10/24; Started on CPAP trial, discussed with pulmonary, still with diarrhea. 10/25: Patients seen and examined, no clinical changes, still with diarrhea. ?meaningful recovery. 10/26: Clinically unchanged, continue CPAP trial, Will discuss with Neurology about re-evaluation, ?Need for repeat CT head. ?PRESS considering initial elevated BP, now stable. 10/27; tracheostomy on vent, weaning trials, vital signs noted, poor prognosis 10/28; unable to wean, tracheostomy on vent. Sepsis. Continue current management. Consults and recommendations noted and appreciated 10/30/2020;Patient on T-piece 5 L of oxygen not in acute distress, noncommunicative 11/02/2020; patient on T-piece 5 L of oxygen 11/03/2020; patient's fever slightly improved low-grade, continue current management, remains on T-piece with 5 L of oxygen 11/04/2020; T-max last 24 hours 100.3 F, new cultures negative to date, monitor off antibiotics Patient is off Levophed, blood pressures reasonable level, tracheostomy on T- piece 3 to 5 L nasal cannula oxygen 11/05/2020; tracheostomy on T-piece patient remains on 5 L of nasal cannula oxygen, unresponsive severe hypoxic brain injury I called patient's mother Ms. Pamela Bassett as well as patient's spouse Mr. Danilo Dimas at [phone] unable to reach them Left voicemail on Ms. Pamela Bassettz phone and encouraged him to call back 11/06/2020; I tried to call again today Ms. Pamela Bassett to discuss patient's condition and treatment plan and update consultants recommendations and patient's prognosis., unable to reach her 11/10/2020; family conference was held by case management yesterday 11/09/2020, family decided and agreed for SNF placement 11/11/2020; patient seen and examined, clinically no change tracheostomy on 5 L of nasal cannula oxygen, hemodynamically and clinically stable for discharge To LTAC versus SNF, DC planning per case management 11/12/2020; clinically no change, continue current management, DC planning per case management possible SNF placement 11/13/2020; patient is receiving herpes flareup treatment per ID I will call patient's spouse and patient's mother to update on patient's condition today The high probability of a clinically significant, sudden or life threatening deterioration of the [MULTIPLE ORGAN] system(s) required my full and direct attention, intervention and personal management. The aggregate critical care time was [31] minutes. This time is in addition to time spent performing reported procedures but includes the following: [X] Data Review and interpretation [X] Patient assessment and monitoring of vital signs [X] Documentation [X] Medication orders and management History Interval history: I have seen and examined the patient at the bedside in ICU Patient's chart and medications reviewed No new events reported by the nursing Patient is alert and awake noncommunicative Slightly agitated, tracheostomy on T-piece Vital signs reviewed Hospitalist Physical - Constitutional Vitals: Temp Pulse Resp BP Pulse Ox 98.9 F 104 H 18 129/72 100 11/13/20 12:00 11/13/20 11:33 11/13/20 07:00 11/13/20 11:33 11/13/20 07:00 General appearance: Present: no acute distress, well-nourished, obese, other (Patient is restless) - EENT Eyes: Present: PERRL, EOM intact - Neck Neck: Present: supple, normal ROM - Respiratory Respiratory effort: normal Respiratory: bilateral: diminished, negative: rales, rhonchi, wheezing - Cardiovascular Rhythm: regular Heart Sounds: Present: S1 & S2 - Extremities Extremities: no ischemia, No edema - Abdominal General gastrointestinal: soft, non-tender, non-distended, normal bowel sounds - Integumentary Integumentary: Present: clear, warm - Psychiatric Psychiatric: appropriate mood/affect, cooperative - Neurologic Neurologic: CNII-XII intact, moves all extremities HEART Score - HEART Score Age: < 45 Risk factors: 1-2 risk factors - Critical Actions Critical Actions: >7 pts:50-65% risk of adverse cardiac event. Early invasive measures Results - Labs CBC & Chem 7: 11/07/20 04:44 11/13/20 10:05 Labs: Laboratory Last Values WBC 10.2 K/mm3 (4.5-11.0) 11/07/20 04:44 RBC 3.88 M/mm3 (3.65-5.03) 11/07/20 04:44 Hgb 11.0 gm/dl (10.1-14.3) 11/07/20 04:44 Hgb Comment See scanned result 10/04/20 Unknown Hct 32.6 % (30.3-42.9) 11/07/20 04:44 MCV 84 fl (79-97) 11/07/20 04:44 MCH 28 pg (28-32) 11/07/20 04:44 MCHC 34 % (30-34) 11/07/20 04:44 RDW 16.6 % (13.2-15.2) H 11/07/20 04:44 Plt Count 259 K/mm3 (140-440) 11/07/20 04:44 Lymph % (Auto) 15.2 % (13.4-35.0) 11/07/20 04:44 Travis % (Auto) 13.1 % (0.0-7.3) H 11/07/20 04:44 Eos % (Auto) 2.5 % (0.0-4.3) 11/07/20 04:44 Baso % (Auto) 0.6 % (0.0-1.8) 11/07/20 04:44 Lymph # (Auto) 1.6 K/mm3 (1.2-5.4) 11/07/20 04:44 Travis # (Auto) 1.3 K/mm3 (0.0-0.8) H 11/07/20 04:44 Eos # (Auto) 0.3 K/mm3 (0.0-0.4) 11/07/20 04:44 Baso # (Auto) 0.1 K/mm3 (0.0-0.1) 11/07/20 04:44 Add Manual Diff Complete 10/29/20 07:56 Total Counted 100 10/29/20 07:56 Seg Neutrophils % 68.6 % (40.0-70.0) 11/07/20 04:44 Seg Neuts % (Manual) 80.0 % (40.0-70.0) H 10/29/20 07:56 Band Neutrophils % 2.0 % 10/15/20 05:50 Lymphocytes % (Manual) 15.0 % (13.4-35.0) 10/29/20 07:56 Reactive Lymphs % (Man) 1.0 % 10/02/20 12:18 Monocytes % (Manual) 4.0 % (0.0-7.3) 10/29/20 07:56 Eosinophils % (Manual) 1.0 % (0.0-4.3) 10/29/20 07:56 Myelocytes % 2.0 % 10/02/20 13:05 Metamyelocytes % 1.0 % 10/14/20 04:00 Nucleated RBC % Not Reportable 10/29/20 07:56 Seg Neutrophils # 7.0 K/mm3 (1.8-7.7) 11/07/20 04:44 Seg Neutrophils # Man 10.9 K/mm3 (1.8-7.7) H 10/29/20 07:56 Band Neutrophils # 0.0 K/mm3 10/29/20 07:56 Lymphocytes # (Manual) 2.0 K/mm3 (1.2-5.4) 10/29/20 07:56 Abs React Lymphs (Man) 0.0 K/mm3 10/29/20 07:56 Monocytes # (Manual) 0.5 K/mm3 (0.0-0.8) 10/29/20 07:56 Eosinophils # (Manual) 0.1 K/mm3 (0.0-0.4) 10/29/20 07:56 Basophils # (Manual) 0.0 K/mm3 (0.0-0.1) 10/29/20 07:56 Metamyelocytes # 0.0 K/mm3 10/29/20 07:56 Myelocytes # 0.0 K/mm3 10/29/20 07:56 Promyelocytes # 0.0 K/mm3 10/29/20 07:56 Blast Cells # 0.0 K/mm3 10/29/20 07:56 WBC Morphology Not Reportable 10/29/20 07:56 Hypersegmented Neuts Not Reportable 10/29/20 07:56 Hyposegmented Neuts Not Reportable 10/29/20 07:56 Hypogranular Neuts Not Reportable 10/29/20 07:56 Smudge Cells Not Reportable 10/29/20 07:56 Toxic Granulation Not Reportable 10/29/20 07:56 Toxic Vacuolation Not Reportable 10/29/20 07:56 Dohle Bodies Not Reportable 10/29/20 07:56 Pelger-Huet Anomaly Not Reportable 10/29/20 07:56 Ester Rods Not Reportable 10/29/20 07:56 Platelet Estimate Consistent w auto 10/29/20 07:56 Clumped Platelets Not Reportable 10/29/20 07:56 Plt Clumps, EDTA Not Reportable 10/29/20 07:56 Large Platelets Few 10/29/20 07:56 Giant Platelets Not Reportable 10/29/20 07:56 Platelet Satelliting Not Reportable 10/29/20 07:56 Plt Morphology Comment Not Reportable 10/29/20 07:56 RBC Morphology Not Reportable 10/29/20 07:56 Dimorphic RBCs Not Reportable 10/29/20 07:56 Polychromasia Rare 10/29/20 07:56 Hypochromasia Few 10/29/20 07:56 Poikilocytosis Not Reportable 10/29/20 07:56 Anisocytosis Not Reportable 10/29/20 07:56 Microcytosis Not Reportable 10/29/20 07:56 Macrocytosis Not Reportable 10/29/20 07:56 Spherocytes Not Reportable 10/29/20 07:56 Pappenheimer Bodies Not Reportable 10/29/20 07:56 Sickle Cells Not Reportable 10/29/20 07:56 Target Cells Few 10/29/20 07:56 Tear Drop Cells Not Reportable 10/29/20 07:56 Ovalocytes Not Reportable 10/29/20 07:56 Stomatocytes Few 10/14/20 04:00 Helmet Cells Not Reportable 10/29/20 07:56 Burk-Paulden Bodies Not Reportable 10/29/20 07:56 [place] Rings Not Reportable 10/29/20 07:56 [place] Cells Not Reportable 10/29/20 07:56 Bite Cells Not Reportable 10/29/20 07:56 Crenated Cell Not Reportable 10/29/20 07:56 Elliptocytes Not Reportable 10/29/20 07:56 Acanthocytes (Spur) Not Reportable 10/29/20 07:56 Rouleaux Not Reportable 10/29/20 07:56 Hemoglobin C Crystals Not Reportable 10/29/20 07:56 Schistocytes Not Reportable 10/29/20 07:56 Malaria parasites Not Reportable 10/29/20 07:56 Sickle Cell Solubility See scanned result 10/04/20 Unknown Hemoglobin A See scanned result 10/04/20 Unknown Hemoglobin A2 See scanned result 10/04/20 Unknown Hemoglobin A2 Prime See scanned result 10/04/20 Unknown Hemoglobin C See scanned result 10/04/20 Unknown Hemoglobin D See scanned result 10/04/20 Unknown Hemoglobin E See scanned result 10/04/20 Unknown Hgb F Diffential Stain See scanned result 10/04/20 Unknown Hemoglobin F Quant See scanned result 10/04/20 Unknown Hemoglobin G See scanned result 10/04/20 Unknown Hemoglobin S See scanned result 10/04/20 Unknown Hemoglobin [place] See scanned result 10/04/20 Unknown Hemoglobin [place] See scanned result 10/04/20 Unknown Hemoglobin Analilia See scanned result 10/04/20 Unknown Variant Hemoglobin See scanned result 10/04/20 Unknown Abnorm Hgb IEF Confirm See scanned result 10/04/20 Unknown Hemoglobin Interpret See scanned result 10/04/20 Unknown Hemoglobinopathy Note See scanned result 10/04/20 Unknown Sharad Bodies Not Reportable 10/29/20 07:56 Hem Pathologist Commnt No 10/29/20 07:56 PT 13.6 Sec. (12.2-14.9) 10/21/20 13:54 INR 1.06 (0.87-1.13) 10/21/20 13:54 APTT 31.6 Sec. (24.2-36.6) 10/03/20 00:40 Fibrinogen 336 mg/dl (211-480) 10/04/20 10:00 D-Dimer 1974.47 ng/mlDDU (0-234) H 11/11/20 13:50 ABG pH 7.459 pH Units (7.350-7.450) H 10/26/20 10:30 POC ABG pCO2 20.7 mmHg (32.0-48.0) L 10/13/20 07:18 ABG pCO2 32.4 mm Hg 10/26/20 10:30 POC ABG pO2 137.9 mmHg (83-108) H 10/13/20 07:18 ABG pO2 112.2 mm Hg (80.0-90.0) H 10/26/20 10:30 POC ABG HCO3 14.8 10/13/20 07:18 ABG HCO3 22.5 mmol/L (20.0-26.0) 10/26/20 10:30 ABG O2 Saturation 98.2 % (95.0-99.0) 10/26/20 10:30 ABG O2 Content 18.5 (0.0-44) 10/26/20 10:30 POC ABG Base Excess -6.9 10/13/20 07:18 ABG Base Excess -0.6 mmol/L (-2.0-3.0) 10/26/20 10:30 ABG Hemoglobin 13.5 gm/dl (12.0-16.0) 10/26/20 10:30 ABG Oxyhemoglobin 98.3 (94-98) H 10/13/20 07:18 ABG Carboxyhemoglobin 1.3 % (0.0-5.0) 10/26/20 10:30 ABG Methemoglobin 0.5 % (0.0-1.5) 10/26/20 10:30 ABG Sodium 135.9 mmol/L (136.0-145.0) L 10/13/20 07:18 ABG Potassium 3.7 mmol/L (3.40-4.50) 10/13/20 07:18 ABG Chloride 111.0 mmol/L (98-107) H 10/13/20 07:18 ABG Glucose 109 mg/dL (65-95) H 10/13/20 07:18 VBG pH 6.949 (7.320-7.420) L* 10/02/20 Unknown Oxyhemoglobin 96.5 % (95.0-99.0) 10/26/20 10:30 Carboxyhemoglobin 0.3 (0.5-1.5) L 10/13/20 07:18 FiO2 25 % 10/26/20 10:30 Sodium 138 mmol/L (137-145) 11/13/20 10:05 Potassium 4.3 mmol/L (3.6-5.0) 11/13/20 10:05 Chloride 101.7 mmol/L (98-107) 11/13/20 10:05 Carbon Dioxide 23 mmol/L (22-30) 11/13/20 10:05 Anion Gap 18 mmol/L 11/13/20 10:05 BUN 14 mg/dL (7-17) 11/13/20 10:05 Creatinine 0.6 mg/dL (0.6-1.2) 11/13/20 10:05 Estimated GFR > 60 ml/min 11/13/20 10:05 BUN/Creatinine Ratio 23 % 11/13/20 10:05 Glucose 114 mg/dL (65-100) H 11/13/20 10:05 POC Glucose 113 mg/dL (70-105) H 11/13/20 11:50 Random Insulin 43.2 uIU/mL (<=19.6) H 11/02/20 19:19 Proinsulin See scanned result 11/02/20 19:19 C-Peptide 6.23 ng/mL (0.80-3.85) H 11/02/20 19:19 Lactic Acid 1.90 mmol/L (0.7-2.0) 10/04/20 22:00 Uric Acid 7.5 mg/dL (3.5-7.6) 10/02/20 13:05 Calcium 9.7 mg/dL (8.4-10.2) 11/13/20 10:05 Ionized Calcium 4.4 mg/dL (4.8-5.6) L 10/07/20 21:00 Phosphorus 4.60 mg/dL (2.5-4.5) H 11/13/20 10:05 Magnesium 2.10 mg/dL (1.7-2.3) 11/13/20 10:05 Total Bilirubin 0.50 mg/dL (0.1-1.2) 11/04/20 05:00 AST 90 units/L (5-40) H 11/04/20 05:00 ALT 36 units/L (7-56) 11/04/20 05:00 Alkaline Phosphatase 122 units/L (35-129) 11/04/20 05:00 Lactate Dehydrogenase 769 units/L (91-180) H 10/02/20 13:05 C-Reactive Protein 0.70 mg/dL (0.00-1.30) 11/11/20 13:50 NT-Pro-B Natriuret Pep 2788 pg/mL (0-450) H 10/04/20 10:00 Total Protein 7.4 g/dL (6.3-8.2) 11/04/20 05:00 Albumin 3.8 g/dL (3.9-5) L 11/04/20 05:00 Albumin/Globulin Ratio 1.1 % 11/04/20 05:00 Procalcitonin < 0.05 ng/mL (<0.15) 11/11/20 13:50 Arterial Blood Glucose 109 mg/dL (65-95) H 10/13/20 07:18 Arterial Blood Ionized Calcium 4.6 mg/dL (4.6-5.3) 10/13/20 07:18 Urine Color Yellow (Yellow) 11/11/20 13:50 Urine Turbidity Cloudy (Clear) 11/11/20 13:50 Urine pH 6.0 (5.0-7.0) 11/11/20 13:50 Ur Specific Alexander 1.013 (1.003-1.030) 11/11/20 13:50 Urine Protein 100 mg/dl mg/dL (Negative) 11/11/20 13:50 Urine Glucose (UA) Neg mg/dL (Negative) 11/11/20 13:50 Urine Ketones Neg mg/dL (Negative) 11/11/20 13:50 Urine Blood Mod (Negative) 11/11/20 13:50 Urine Nitrite Pos (Negative) 11/11/20 13:50 Urine Bilirubin Neg (Negative) 11/11/20 13:50 Urine Urobilinogen 2.0 mg/dL (<2.0) 11/11/20 13:50 Ur Leukocyte Esterase Lg (Negative) 11/11/20 13:50 Urine WBC (Auto) > 182.0 /HPF (0.0-6.0) H 11/11/20 13:50 Urine RBC (Auto) > 182.0 /HPF (0.0-6.0) 11/11/20 13:50 U Epithel Cells (Auto) 1.0 /HPF (0-13.0) 11/11/20 13:50 Urine Bacteria (Auto) 4+ /HPF (Negative) 11/11/20 13:50 Urine WBC Clumps 3+ /HPF 11/11/20 13:50 Calcium Oxalate Crystal Few 11/11/20 13:50 Urine Mucus Few /HPF 11/11/20 13:50 Vancomycin Trough 12.6 ug/mL (5.0-20.0) 10/21/20 13:54 Random Vancomycin 10.7 ug/mL (0-40.0) 10/16/20 13:09 Phenytoin 5.7 ug/mL (10.0-20.0) L 10/13/20 07:00 C. difficile Tox (PCR) Positive (Negative) 10/16/20 10:22 Coronavirus (PCR) Negative (Negative) 10/08/20 14:15 Blood Type O POSITIVE 10/02/20 12:50 Antibody Screen Negative 10/02/20 12:50 Crossmatch See Detail 10/02/20 12:50 - Diagnostic Impressions Diagnostic Impressions: Echocardiogram 10/03/20 13:42 Transthoracic Echocardiogram Indication: S/P Cardiac Arrest R/O Cardiomyopathy BP: 133/71 Conclusions *Global left ventricular systolic function is normal. *The estimated ejection fraction is 60-65%. *There is trace of mitral regurgitation. *The right 0heart chambers are both slightly dilated. *There is mild tricuspid regurgitation. *There is mild-moderate pulmonary hypertension. *The right ventricular systolic pressure is calculated at 44 mmHg. *The study quality is technically difficult. Findings Procedure Info: The study quality is technically difficult. The study is technically limited due to patient body habitus. The study was technically limited due to the patient's inability to lay in the left lateral decubitus position. Left Ventricle: The left ventricular chamber size is normal. There is no left ventricular hypertrophy. Global left ventricular systolic function is normal. The estimated ejection fraction is 60-65%. Left Atrium: The left atrial chamber size is normal. Right Ventricle: The right ventricle is slightly dilated. Right Atrium: The right atrium is mildly dilated. Aortic Valve: The aortic valve leaflets are mildly thickened. There is no evidence of aortic regurgitation. There is no evidence of aortic stenosis. Mitral Valve: The mitral valve leaflets are mildly thickened. There is trace of mitral regurgitation. There is no evidence of mitral stenosis. Tricuspid Valve: There is mild tricuspid regurgitation. The right ventricular systolic pressure is calculated at 44 mmHg. There is evidence of mild pulmonary hypertension. Pulmonic Valve: There is trace pulmonic regurgitation. Pericardium: There is no pericardial effusion. Aorta: There is no dilatation of the ascending aorta. There is no dilatation of the aortic root. Venous: The inferior vena cava is dilated. Measurements Chambers 2D Name Value Normal Range IVSd (2D) 1 cm (0.6 - 1.1) LVPWd (2D) 1.01 cm (0.6 - 1.1) LVIDd (2D) 4.58 cm (3.7 - 5.6) LVIDs (2D) 3.17 cm (2 - 3.8) LV FS (2D) 30.93 % - EF Teichholz (2D) 58.66 % - Ao root diameter (2D) 2.94 cm (2 - 3.7) Volumes/Mass Name Value Normal Range LA ESV SP 4CH (A/L) 72.82 ml - LA ESV SP 2CH (A/L) 66.86 ml - LA ESV BP (A/L) 74.49 ml - LA ESV SP 4CH (MOD) 71.03 ml - LA ESV SP 2CH (MOD) 64.3 ml - LV EDV SP 4CH (MOD) 98.82 ml - LV ESV SP 4CH (MOD) 24.8 ml - EF SP 4CH (MOD) 74.9 % - LV EDV SP 2CH (MOD) 86.1 ml - LV ESV SP 2CH (MOD) 36.93 ml - EF SP 2CH (MOD) 57.11 % - LV EDV BP 94.4 ml - LV ESV BP 32.66 ml - BP EF (MOD) 65.4 % - Diastolic/Systolic Function Name Value Normal Range MV E-wave Vmax 1.04 m/sec - MV deceleration time 160.46 msec - MV A-wave Vmax 0.92 m/sec - MV E:A ratio 1.14 ratio - Aortic Valve Name Value Normal Range AV Vmax 2.12 m/sec - AV VTI 22.37 cm - AV peak gradient 17.95 mmHg - AV mean gradient 7.29 mmHg - LVOT diameter 2.01 cm - LVOT Vmax 1.8 m/sec - LVOT VTI 27.17 cm - LVOT peak gradient 12.91 mmHg - LVOT mean gradient 6.83 mmHg - SV LVOT 86.42 ml - ANITA (continuity Vmax) 2.7 cm2 - ANITA (continuity VTI) 3.86 cm2 - Ascending Ao 3.18 cm - Tricuspid Valve Name Value Normal Range TV E-wave Vmax 0.88 m/sec - TR Vmax 3.01 m/sec - TR peak gradient 36.27 mmHg - RAP 8 mmHg - RVSP 44 mmHg - IVC diameter 2.65 cm (1.2 - 2.3) Pulmonic Valve/Qp:Qs Name Value Normal Range PV Vmax 1.22 m/sec - PV peak gradient 5.91 mmHg - RVOT Vmax 0.87 m/sec - RVOT VTI 13.32 cm - RVOT peak gradient 3 mmHg - PV acceleration time 110.37 msec - [place]/IV: Voiding Method Indwelling Catheter IV Catheter Type [Right Foot] INT / Saline Lock IV Catheter Type [Left Forearm Peripheral IV ] IV Catheter Type [Left Wrist] INT / Saline Lock IV Catheter Type [Right Hand] INT / Saline Lock IV Catheter Type [Right INT / Saline Lock Antecubital] IV Catheter Type [Right Upper Mid-line arm] IV Catheter Type [Left Triple Lumen Cath Internal Jugular] IV Catheter Type [Left Hand] Peripheral IV IV Catheter Type [Left Peripheral IV Antecubital] Active Medications - Current Medications Current Medications: Generic Name Dose Route Start Last Admin Trade Name Freq PRN Reason Stop Dose Admin Acetaminophen 650 mg 10/05/20 16:34 11/13/20 11:32 Acetaminophen 325 Mg/10.15 Ml Oral Liqd Unit Dose FEEDTUBE 650 mg Q6H PRN Administration Non Cardiac Pain or Temp>100.5 Albuterol 2.5 mg 11/05/20 13:03 11/06/20 13:04 Albuterol 2.5 Mg/3 Ml Nebu IH 2.5 mg Q4HRT PRN Administration Shortness Of Breath Lipase/Protease/Amylase 1 each 10/05/20 11:09 Lipase 10,500/Protease 25,000/Amylase 43,750 (Units) Dr Barakat FEEDTUBE PRN PRN For Clogged Feeding Tube Enoxaparin Sodium 40 mg 10/22/20 10:00 11/13/20 11:34 Enoxaparin 40 Mg/0.4 Ml Inj SUB-Q 40 mg DAILY ERINN Administration Protocol Famotidine 20 mg 10/07/20 10:00 11/13/20 11:34 Famotidine 20 Mg Tab PO 20 mg BID ERINN Administration Furosemide 40 mg 10/17/20 10:00 11/13/20 11:34 Furosemide 40 Mg Tab PO 40 mg QDAY ERINN Administration Hydralazine HCl 20 mg 10/07/20 11:49 10/17/20 07:20 Hydralazine 20 Mg/1 Ml Inj IV 20 mg Q6H PRN Administration SBP >170 Hydralazine HCl 50 mg 10/17/20 09:00 11/13/20 05:10 Hydralazine 25 Mg Tab PO 50 mg Q8HR ERINN Administration Hydrocortisone Sodium Succinate 100 mg 11/12/20 14:00 11/13/20 05:10 Hydrocortisone Sod Succ 100 Mg/2 Ml Vial IV 100 mg Q8HR ERINN Administration Dextrose 1,000 mls @ 75 mls/hr 10/13/20 11:00 11/12/20 20:51 D10w IV 75 mls/hr DIRECT ERINN Administration Ceftriaxone Sodium 1 gm in 50 mls @ 100 mls/hr 11/12/20 11:00 11/13/20 11:32 Rocephin/Ns 1 Gm/50 Ml IV 11/14/20 11:29 100 mls/hr Q24H ERINN Administration Protocol Labetalol HCl 300 mg 10/17/20 09:00 11/13/20 11:33 Labetalol 100 Mg Tab PO 300 mg TID ERINN Administration Simple Syrup 15 ml 10/05/20 11:09 Simple Syrup 15 Ml FEEDTUBE PRN PRN Hypoglycemia Simple Syrup 30 ml 12/21/20 11:09 Simple Syrup 15 Ml FEEDTUBE PRN PRN Hypoglycemia Sodium Bicarbonate 325 mg 10/05/20 11:09 11/06/20 10:35 Sodium Bicarbonate 325 Mg Tab FEEDTUBE 325 mg PRN PRN Administration For Clogged Feeding Tube Sodium Bicarbonate 1,300 mg 10/13/20 14:00 11/13/20 11:33 Sodium Bicarbonate 650 Mg Tab PO 1,300 mg TID ERINN Administration Topiramate 50 mg 10/05/20 11:00 11/13/20 12:10 Topiramate Tab 25 Mg Tab PO 50 mg Q12HR ERINN Administration Nutrition/Malnutrition Assess - Dietary Evaluation Nutrition/Malnutrition Findings: Nutrition Notes Start: 10/04/20 11:13 Freq: Status: Active Protocol: Document 11/10/20 11:16 CW (Rec: 11/10/20 11:23 CW [id number]) Co-Sign 11/10/20 11:16 LP Nutrition Notes Initial or Follow up Reassessment Current Diagnosis Acute Kidney Injury, Respiratory Failure Other Pertinent Diagnosis C-Diff, Cardiac arrest, s/p c- sectuion and supracervial hysterectomy Current Diet Jevity 1.2 at 60 ml/hr Labs/Tests reviewed Pertinent Medications lasix D10w at 75ml/hr Height 5 ft 8 in Weight 105.3 kg [place] Body Weight (kg) 63.63 BMI 35.3 Weight change and time frame Wt change noted, pt on lasix Weight Status Morbidly Obese Subjective/Other Information FU for TF tolerance, POC. Pt remains on T-piece with TF running at goal and D10w infusing. Per chart, discussed POC with family and pending SNF placement. Per RN, pt tolerating TF. Percent of energy/protein needs met: 100%/100% Burn Absent Trauma Absent GI Symptoms None Food Allergy Yes Current % PO Negligible Minimum of two criteria No Fluid Accumulation Mild (non-severe) #1 Nutrition Diagnosis Inadequate oral intake Diagnosis Progress(for reassessment Continues documentation) Is patient on ventilator? No Is Patient Ambulatory and/or Out of Bed No REE-([facility]-confined to bed) [phone] Kcal/Kg value to use for calculation 16 Approximate Energy Requirements Using 1685 kcal/Kg Calculation Used for Recommendations Kcal/kg Additional Notes Protein needs are 68-85g (0.8- 1g/kg AdjBW 85kg) Fluid needs are 1ml/kcal Nutrition Intervention Change Diet Order: Continue Nutrition Support: Jevity 1.2 at 60ml/hr. Flush 100ml q4h. Kcal 1,782 Protein (gm) 87 Fluid (mL) 1,259 Goal #1 TF tolerance Goal #2 Meet at least 75% of energy and protein needs Anticipated Discharge Needs: Unable to determine at this time Follow-Up By: 11/17/20 Additional Comments FU for TF tolerance, POC
[2020-11-13] MEDS: DEXTROSE 10% IN WATER 1,000 ML IV SCH (22:47)
[2020-11-14] MEDS: HYDROCORTISONE SOD SUCC 100 MG/2 ML VIAL IV SCH ×3 (06:47→22:32)
[2020-11-14] MEDS: hydrALAZINE 25 MG TAB PO SCH ×3 (06:47→22:32)
--- NOTE | 2020-11-14 07:35 | Progress Note ---
Assessment and Plan Assessment and plan: 30 y/o female patient with Eclampsia/help syndrome, s/p emergent section with DIC, hemorrhage, supracervical abdominal hysterectomy, acute respiratory failure , tracheostomy on T-piece with morbid obesity, s/p cardiac arrest 12/08/2019 status post CPR per ACLS, acute hypoxic brain injury Acute kidney injury improved, severe shock requiring pressors, DIC septic shock improved, history of C. difficile colitis completed treatment with vancomycin. Tracheostomy on T-piece, continues to require 5 L of oxygen. Herpetic flareup, ID started treatment with antibiotics --Cardiac arrest; 10/07/2020 ,status post CPR --Acute hypoxic brain injury; Supportive care, closely monitor --Acute hypoxic respiratory failure: Tracheostomy on T-piece , 5 L oxygen, saturating 100% Nebulizers, continue oxygen titrate O2 sats to more than 90% Pulmonary critical following COVID-19 negative C. difficile positive; Patient on contact isolation Completed treatment --Afebrile: Blood, urine, tracheal aspirate cultures New cultures negative to date Monitor off antibiotics Closely monitor --Sepsis; received antibiotics Continue to monitor off antibiotics ID following --COVID-19 test negative; 10/08/2020 --C. difficile colitis test; positive; 10/16/2020 --Acute metabolic encephalopathy --Acute kidney injury; vasomotor nephropathy Resolved, renal function within normal limits, closely monitor --Shock; monitor of pressors Blood pressures reasonable level --DIC; sepsis, septic shock, resolved --History of preeclampsia; / hemorrhage Status post hysterectomy --History of C. difficile colitis; completed oral vancomycin --DVT/SVT and right upper extremity Very poor prognosis, Consults recommendations noted and appreciated We will closely monitor the patient and adjust management as needed Plan of care reviewed with the patient's nurse. Brief history; 30 year old -[place] female CHE 10/25/20 at 36w5d who presents with seizures in triage on 10/02/20. Pt was not able to provide history but per pt's , she presented to the hospital to return a 24 hour urine specimen for analysis. She then suddenly reported that she did not feel good. She was taken to labor and delivery and shortly after arrival, she began seizing. During this time, a code met was called because the patient became hypoxic. She was then noted to be without a pulse. Chest compressions were started immediately, and the patient was emergently taken to the operating room for delivery of the fetus. Off note, This patient has had care at [facility] with comanagement by [facility] since 11 wks complicated by ADHD, morbid obesity, generalized anxiety disorder, panic attacks, chronic narcotic use, fibromyalgia, GERD, Irritable Bowel Syndrome, Migraines, h/o endometrial ablation and ovarian vein embolization, genital herpes, insomnia, LGA fetus, nausea and vomiting, polyhydramnios, quad screen positive for Down's Syndrome, and previous x 3. She is GBS negative. , Patient tracheostomy on ventilatory support, unable to wean, continue supportive care poor prognosis 11:30: Pt brought to L&D triage for evaluation of possible labor. Pt accompanied by her spouse. Pt spouse poor historian; unable to obtain history- allergies at this time. Pt taken from registration to triage area via WC. Pt unresponsive, actively seizing with snorous respirations. service attendant cafeteria, Kassy, called and requesting assistance. 11:35: Multiple staff at bedside. Pt 02 sat 67% on nonrebreather, unable to read BP . Yifan Theodore CRNA, at bedside for intubation and assistance with IV insertion. INT attempt by multiple RNs unsuccessful at this time. 11:42: Pt being bagged by KORIN, 02% 79%. No pulse palpated, compressions on at this time; bharati young called and Dr. Newberry preparing OR for emergent c/s. 11:44: Continued compressions on stretcher while transporting pt to OR 1. Pt being bagged with jaw thrust manuever in place by KORIN Stringer student. 11:45: Arrival to OR 1. Dr. Newberry and Dr. Portillo present for emergent c/s. Code team arrived for continued care. patient revived and c/s done Patient has been bleeding from C/s site followed by supracervical hysterectomy for severe bleeding, Patient transfused multiple units of PRBC, Patient in DIC. Patient transferred to the ICU Hospital course; 10/03. Patient seen and examined at bedside this morning. Patient is nonre sponsive and mechanically ventilated. On pressors. Labs reviewed-has leukocytosis, anemia, thrombocytopenia, ADOLPH and lactic acidosis. Started on IV antibiotics to cover possible sepsis secondary to DIC. Hematology oncology recommendations appreciated-needs additional cryoprecipitate and FFP. Monitor D-dimer, fibrinogen and frequent labs. Nephrology consulted for lactic acidosis and ADOLPH. 10/04. Remains mechanically ventilated. [place] antibiotics. Labs shows improved acidosis - lactic acid 3.5. Hb drop noted. Getting transfused 2 units PRBCs. Platelet count is ~40k. Continue to monitor labs closely. Critical care team on board. 10/05; xray reviewed, concerning for multifocal infilrate, likely underlying Pneumonia, will add ID consult to assist with management of this critically ill patient, start tube feed, closely monitor renal system 10/06: Resumed care, remains on mechanical ventilation. No active bleeding, H&H stable. Continue to monitor CBC and BMP. Continue IV antibiotic for underlying pneumonia. Follow critical care and ID recommendation. 10/07: Remains on mechanical ventilation. No active bleeding, H&H stable. Critical care following, wean off ventilation as tolerated. 10/08: Patient had another cardiac arrest last night. Remains on mechanical ventilation, update family. Continue supportive care -poor prognosis 10/09: Called patient mother and discussed about patient care and management. Answered all question to best of my knowledge and family satisfaction. Patient remains on mechanical ventilation, cardiac arrest x2 so far. Critically sick, poor prognosis 10/10: remains on mechanical ventilation. h/h stable, no active bleeding. monitor CBC/BMP 10/11: WBC trended up with diarrhea, started on vancomycin po. remains on MV, off pressor, tolerating TF 10/12: remains on MV, off pressor, tolerating TF. called family for update but unable to reach, could not leave message as it was full. cont supportive care, wean off vent as tolerated. 10/13/2020; patient is on mechanical ventilation, tolerating tube feeding. Patient has labored breathing. Neuro was consulted and recommend MRI. Patient is on Precedex. Rectal tube in place. 10/14/2020; patient is on mechanical ventilation, Precedex. Patient had fever and blood culture ordered. Patient is on IV vancomycin per ID recommendation. Neuro consulted and recommend MRI. Continue to monitor. Prognosis is guarded. 10/15/2020; patient is on mechanical ventilation, Precedex. Patient had fever and blood culture ordered. Patient is on IV vancomycin per ID recommendation. Neuro consulted and recommend MRI. Continue to monitor. Prognosis is guarded. 10/17: Remains with C.DIFF and Bactermia, Poor prognosis. No purposeful movement. MRI and EEG discussed with Intensvisit, Continue aggressive BP control. 10/18: Blood pressure better controlled MRI done 10/15 shows mild improvement in edema. We will continue to monitor mother was at bedside yesterday. Nursing documentation trach and PEG discussed with the mother including goals of care. She is still in denial about the gravity of her daughters her condition which is understandable considering her age. Continue aggressive management at this time. Await for bacteremia to clear by ID before placing PICC line. 10/19: Patient for possible PEG and Trach, ID following, repeat cultures remain negative. Poor prognosis 10/20: Pt noted to DVT and SVT in the RUE, Vascular consult and will also obtain Hematology for possible considering changing in Anticoagulation. CONTINUE TO MONITOR H/H and PLT. Family updated by Intens[employer]it. Heparin gtt started. Will check CBC and BMP 10/21: Continue supporive care, Diarrhea now resolving, But still with persistent Fever, May need repeat CT/AP per ID, still with profused Encephalopathy 10/22: Continue supportive care, weaning, awaiting repeat Imaging. FOLLOW Fever curve. Enoxparin restarted 10/23: Continue supportive care, wean as tolerated. 10/24; Started on CPAP trial, discussed with pulmonary, still with diarrhea. 10/25: Patients seen and examined, no clinical changes, still with diarrhea. ?meaningful recovery. 10/26: Clinically unchanged, continue CPAP trial, Will discuss with Neurology about re-evaluation, ?Need for repeat CT head. ?PRESS considering initial elevated BP, now stable. 10/27; tracheostomy on vent, weaning trials, vital signs noted, poor prognosis 10/28; unable to wean, tracheostomy on vent. Sepsis. Continue current management. Consults and recommendations noted and appreciated 10/30/2020;Patient on T-piece 5 L of oxygen not in acute distress, noncommunicative 11/02/2020; patient on T-piece 5 L of oxygen 11/03/2020; patient's fever slightly improved low-grade, continue current management, remains on T-piece with 5 L of oxygen 11/04/2020; T-max last 24 hours 100.3 F, new cultures negative to date, monitor off antibiotics Patient is off Levophed, blood pressures reasonable level, tracheostomy on T- piece 3 to 5 L nasal cannula oxygen 11/05/2020; tracheostomy on T-piece patient remains on 5 L of nasal cannula oxygen, unresponsive severe hypoxic brain injury I called patient's mother Ms. Pamela Bassett as well as patient's spouse Mr. Danilo Dimas at [phone] unable to reach them Left voicemail on Ms. Pamela Bassettz phone and encouraged him to call back 11/06/2020; I tried to call again today Ms. Pamela Bassett to discuss patient's condition and treatment plan and update consultants recommendations and patient's prognosis., unable to reach her 11/10/2020; family conference was held by case management yesterday 11/09/2020, family decided and agreed for SNF placement 11/11/2020; patient seen and examined, clinically no change tracheostomy on 5 L of nasal cannula oxygen, hemodynamically and clinically stable for discharge To LTAC versus SNF, DC planning per case management 11/12/2020; clinically no change, continue current management, DC planning per case management possible SNF placement 11/13/2020; patient is receiving herpes flareup treatment per ID 11/14/2020; clinically no change The high probability of a clinically significant, sudden or life threatening deterioration of the [MULTIPLE ORGAN] system(s) required my full and direct attention, intervention and personal management. The aggregate critical care time was [31] minutes. This time is in addition to time spent performing reported procedures but includes the following: [X] Data Review and interpretation [X] Patient assessment and monitoring of vital signs [X] Documentation [X] Medication orders and management History Interval history: I have seen and examined the patient at the bedside Patient's chart and medications reviewed Patient noncommunicative, tracheostomy on 5 L of oxygen Vital signs noted No new events reported by the nursing Hospitalist Physical - Constitutional Vitals: Temp Pulse Resp BP Pulse Ox 99.5 F 91 H 23 126/69 100 11/14/20 04:00 11/14/20 06:00 11/14/20 06:00 11/14/20 06:00 11/14/20 06:00 General appearance: Present: no acute distress, well-nourished, obese, other (Patient is restless) - EENT Eyes: Present: PERRL, EOM intact ENT: other (Tracheostomy on T-piece) - Neck Neck: Present: supple, normal ROM - Respiratory Respiratory effort: normal Respiratory: bilateral: diminished, rhonchi, negative: rales, wheezing - Cardiovascular Rhythm: regular Heart Sounds: Present: S1 & S2 - Extremities Extremities: no ischemia Extremity abnormal: edema - Abdominal General gastrointestinal: soft, non-tender, non-distended, normal bowel sounds, other (PEG tube in place) - Integumentary Integumentary: Present: clear, warm - Psychiatric Psychiatric: other - Neurologic Neurologic: other (Unresponsive noncommunicative) HEART Score - HEART Score Age: < 45 Risk factors: 1-2 risk factors - Critical Actions Critical Actions: >7 pts:50-65% risk of adverse cardiac event. Early invasive measures Results - Labs CBC & Chem 7: 11/07/20 04:44 11/13/20 10:05 Labs: Laboratory Last Values WBC 10.2 K/mm3 (4.5-11.0) 11/07/20 04:44 RBC 3.88 M/mm3 (3.65-5.03) 11/07/20 04:44 Hgb 11.0 gm/dl (10.1-14.3) 11/07/20 04:44 Hgb Comment See scanned result 10/04/20 Unknown Hct 32.6 % (30.3-42.9) 11/07/20 04:44 MCV 84 fl (79-97) 11/07/20 04:44 MCH 28 pg (28-32) 11/07/20 04:44 MCHC 34 % (30-34) 11/07/20 04:44 RDW 16.6 % (13.2-15.2) H 11/07/20 04:44 Plt Count 259 K/mm3 (140-440) 11/07/20 04:44 Lymph % (Auto) 15.2 % (13.4-35.0) 11/07/20 04:44 [place] % (Auto) 13.1 % (0.0-7.3) H 11/07/20 04:44 Eos % (Auto) 2.5 % (0.0-4.3) 11/07/20 04:44 Baso % (Auto) 0.6 % (0.0-1.8) 11/07/20 04:44 Lymph # (Auto) 1.6 K/mm3 (1.2-5.4) 11/07/20 04:44 [place] # (Auto) 1.3 K/mm3 (0.0-0.8) H 11/07/20 04:44 Eos # (Auto) 0.3 K/mm3 (0.0-0.4) 11/07/20 04:44 Baso # (Auto) 0.1 K/mm3 (0.0-0.1) 11/07/20 04:44 Add Manual Diff Complete 10/29/20 07:56 Total Counted 100 10/29/20 07:56 Seg Neutrophils % 68.6 % (40.0-70.0) 11/07/20 04:44 Seg Neuts % (Manual) 80.0 % (40.0-70.0) H 10/29/20 07:56 Band Neutrophils % 2.0 % 10/15/20 05:50 Lymphocytes % (Manual) 15.0 % (13.4-35.0) 10/29/20 07:56 Reactive Lymphs % (Man) 1.0 % 10/02/20 12:18 Monocytes % (Manual) 4.0 % (0.0-7.3) 10/29/20 07:56 Eosinophils % (Manual) 1.0 % (0.0-4.3) 10/29/20 07:56 Myelocytes % 2.0 % 10/02/20 13:05 Metamyelocytes % 1.0 % 10/14/20 04:00 Nucleated RBC % Not Reportable 10/29/20 07:56 Seg Neutrophils # 7.0 K/mm3 (1.8-7.7) 11/07/20 04:44 Seg Neutrophils # Man 10.9 K/mm3 (1.8-7.7) H 10/29/20 07:56 Band Neutrophils # 0.0 K/mm3 10/29/20 07:56 Lymphocytes # (Manual) 2.0 K/mm3 (1.2-5.4) 10/29/20 07:56 Abs React Lymphs (Man) 0.0 K/mm3 10/29/20 07:56 Monocytes # (Manual) 0.5 K/mm3 (0.0-0.8) 10/29/20 07:56 Eosinophils # (Manual) 0.1 K/mm3 (0.0-0.4) 10/29/20 07:56 Basophils # (Manual) 0.0 K/mm3 (0.0-0.1) 10/29/20 07:56 Metamyelocytes # 0.0 K/mm3 10/29/20 07:56 Myelocytes # 0.0 K/mm3 10/29/20 07:56 Promyelocytes # 0.0 K/mm3 10/29/20 07:56 Blast Cells # 0.0 K/mm3 10/29/20 07:56 WBC Morphology Not Reportable 10/29/20 07:56 Hypersegmented Neuts Not Reportable 10/29/20 07:56 Hyposegmented Neuts Not Reportable 10/29/20 07:56 Hypogranular Neuts Not Reportable 10/29/20 07:56 Smudge Cells Not Reportable 10/29/20 07:56 Toxic Granulation Not Reportable 10/29/20 07:56 Toxic Vacuolation Not Reportable 10/29/20 07:56 Dohle Bodies Not Reportable 10/29/20 07:56 Pelger-Huet Anomaly Not Reportable 10/29/20 07:56 Ester Rods Not Reportable 10/29/20 07:56 Platelet Estimate Consistent w auto 10/29/20 07:56 Clumped Platelets Not Reportable 10/29/20 07:56 Plt Clumps, EDTA Not Reportable 10/29/20 07:56 Large Platelets Few 10/29/20 07:56 Giant Platelets Not Reportable 10/29/20 07:56 Platelet Satelliting Not Reportable 10/29/20 07:56 Plt Morphology Comment Not Reportable 10/29/20 07:56 RBC Morphology Not Reportable 10/29/20 07:56 Dimorphic RBCs Not Reportable 10/29/20 07:56 Polychromasia Rare 10/29/20 07:56 Hypochromasia Few 10/29/20 07:56 Poikilocytosis Not Reportable 10/29/20 07:56 Anisocytosis Not Reportable 10/29/20 07:56 Microcytosis Not Reportable 10/29/20 07:56 Macrocytosis Not Reportable 10/29/20 07:56 Spherocytes Not Reportable 10/29/20 07:56 Pappenheimer Bodies Not Reportable 10/29/20 07:56 Sickle Cells Not Reportable 10/29/20 07:56 Target Cells Few 10/29/20 07:56 Tear Drop Cells Not Reportable 10/29/20 07:56 Ovalocytes Not Reportable 10/29/20 07:56 Stomatocytes Few 10/14/20 04:00 Helmet Cells Not Reportable 10/29/20 07:56 [place] Bodies Not Reportable 10/29/20 07:56 [place] Rings Not Reportable 10/29/20 07:56 [place] Cells Not Reportable 10/29/20 07:56 Bite Cells Not Reportable 10/29/20 07:56 Crenated Cell Not Reportable 10/29/20 07:56 Elliptocytes Not Reportable 10/29/20 07:56 Acanthocytes (Spur) Not Reportable 10/29/20 07:56 Rouleaux Not Reportable 10/29/20 07:56 Hemoglobin C Crystals Not Reportable 10/29/20 07:56 Schistocytes Not Reportable 10/29/20 07:56 Malaria parasites Not Reportable 10/29/20 07:56 Sickle Cell Solubility See scanned result 10/04/20 Unknown Hemoglobin A See scanned result 10/04/20 Unknown Hemoglobin A2 See scanned result 10/04/20 Unknown Hemoglobin A2 Prime See scanned result 10/04/20 Unknown Hemoglobin C See scanned result 10/04/20 Unknown Hemoglobin D See scanned result 10/04/20 Unknown Hemoglobin E See scanned result 10/04/20 Unknown Hgb F Diffential Stain See scanned result 10/04/20 Unknown Hemoglobin F Quant See scanned result 10/04/20 Unknown Hemoglobin G See scanned result 10/04/20 Unknown Hemoglobin S See scanned result 10/04/20 Unknown Hemoglobin [place] See scanned result 10/04/20 Unknown Hemoglobin [place] See scanned result 10/04/20 Unknown Hemoglobin Anal[place] See scanned result 10/04/20 Unknown Variant Hemoglobin See scanned result 10/04/20 Unknown Abnorm Hgb IEF Confirm See scanned result 10/04/20 Unknown Hemoglobin Interpret See scanned result 10/04/20 Unknown Hemoglobinopathy Note See scanned result 10/04/20 Unknown Sharad Bodies Not Reportable 10/29/20 07:56 Hem Pathologist Commnt No 10/29/20 07:56 PT 13.6 Sec. (12.2-14.9) 10/21/20 13:54 INR 1.06 (0.87-1.13) 10/21/20 13:54 APTT 31.6 Sec. (24.2-36.6) 10/03/20 00:40 Fibrinogen 336 mg/dl (211-480) 10/04/20 10:00 D-Dimer 1974.47 ng/mlDDU (0-234) H 11/11/20 13:50 ABG pH 7.459 pH Units (7.350-7.450) H 10/26/20 10:30 POC ABG pCO2 20.7 mmHg (32.0-48.0) L 10/13/20 07:18 ABG pCO2 32.4 mm Hg 10/26/20 10:30 POC ABG pO2 137.9 mmHg (83-108) H 10/13/20 07:18 ABG pO2 112.2 mm Hg (80.0-90.0) H 10/26/20 10:30 POC ABG HCO3 14.8 10/13/20 07:18 ABG HCO3 22.5 mmol/L (20.0-26.0) 10/26/20 10:30 ABG O2 Saturation 98.2 % (95.0-99.0) 10/26/20 10:30 ABG O2 Content 18.5 (0.0-44) 10/26/20 10:30 POC ABG Base Excess -6.9 10/13/20 07:18 ABG Base Excess -0.6 mmol/L (-2.0-3.0) 10/26/20 10:30 ABG Hemoglobin 13.5 gm/dl (12.0-16.0) 10/26/20 10:30 ABG Oxyhemoglobin 98.3 (94-98) H 10/13/20 07:18 ABG Carboxyhemoglobin 1.3 % (0.0-5.0) 10/26/20 10:30 ABG Methemoglobin 0.5 % (0.0-1.5) 10/26/20 10:30 ABG Sodium 135.9 mmol/L (136.0-145.0) L 10/13/20 07:18 ABG Potassium 3.7 mmol/L (3.40-4.50) 10/13/20 07:18 ABG Chloride 111.0 mmol/L (98-107) H 10/13/20 07:18 ABG Glucose 109 mg/dL (65-95) H 10/13/20 07:18 VBG pH 6.949 (7.320-7.420) L* 10/02/20 Unknown Oxyhemoglobin 96.5 % (95.0-99.0) 10/26/20 10:30 Carboxyhemoglobin 0.3 (0.5-1.5) L 10/13/20 07:18 FiO2 25 % 10/26/20 10:30 Sodium 138 mmol/L (137-145) 11/13/20 10:05 Potassium 4.3 mmol/L (3.6-5.0) 11/13/20 10:05 Chloride 101.7 mmol/L (98-107) 11/13/20 10:05 Carbon Dioxide 23 mmol/L (22-30) 11/13/20 10:05 Anion Gap 18 mmol/L 11/13/20 10:05 BUN 14 mg/dL (7-17) 11/13/20 10:05 Creatinine 0.6 mg/dL (0.6-1.2) 11/13/20 10:05 Estimated GFR > 60 ml/min 11/13/20 10:05 BUN/Creatinine Ratio 23 % 11/13/20 10:05 Glucose 114 mg/dL (65-100) H 11/13/20 10:05 POC Glucose 110 mg/dL (70-105) H 11/14/20 05:26 Random Insulin 43.2 uIU/mL (<=19.6) H 11/02/20 19:19 Proinsulin See scanned result 11/02/20 19:19 C-Peptide 6.23 ng/mL (0.80-3.85) H 11/02/20 19:19 Lactic Acid 1.90 mmol/L (0.7-2.0) 10/04/20 22:00 Uric Acid 7.5 mg/dL (3.5-7.6) 10/02/20 13:05 Calcium 9.7 mg/dL (8.4-10.2) 11/13/20 10:05 Ionized Calcium 4.4 mg/dL (4.8-5.6) L 10/07/20 21:00 Phosphorus 4.60 mg/dL (2.5-4.5) H 11/13/20 10:05 Magnesium 2.10 mg/dL (1.7-2.3) 11/13/20 10:05 Total Bilirubin 0.50 mg/dL (0.1-1.2) 11/04/20 05:00 AST 90 units/L (5-40) H 11/04/20 05:00 ALT 36 units/L (7-56) 11/04/20 05:00 Alkaline Phosphatase 122 units/L (35-129) 11/04/20 05:00 Lactate Dehydrogenase 769 units/L (91-180) H 10/02/20 13:05 C-Reactive Protein 0.70 mg/dL (0.00-1.30) 11/11/20 13:50 NT-Pro-B Natriuret Pep 2788 pg/mL (0-450) H 10/04/20 10:00 Total Protein 7.4 g/dL (6.3-8.2) 11/04/20 05:00 Albumin 3.8 g/dL (3.9-5) L 11/04/20 05:00 Albumin/Globulin Ratio 1.1 % 11/04/20 05:00 Procalcitonin < 0.05 ng/mL (<0.15) 11/11/20 13:50 Arterial Blood Glucose 109 mg/dL (65-95) H 10/13/20 07:18 Arterial Blood Ionized Calcium 4.6 mg/dL (4.6-5.3) 10/13/20 07:18 Urine Color Yellow (Yellow) 11/11/20 13:50 Urine Turbidity Cloudy (Clear) 11/11/20 13:50 Urine pH 6.0 (5.0-7.0) 11/11/20 13:50 Ur Specific [place] 1.013 (1.003-1.030) 11/11/20 13:50 Urine Protein 100 mg/dl mg/dL (Negative) 11/11/20 13:50 Urine Glucose (UA) Neg mg/dL (Negative) 11/11/20 13:50 Urine Ketones Neg mg/dL (Negative) 11/11/20 13:50 Urine Blood Mod (Negative) 11/11/20 13:50 Urine Nitrite Pos (Negative) 11/11/20 13:50 Urine Bilirubin Neg (Negative) 11/11/20 13:50 Urine Urobilinogen 2.0 mg/dL (<2.0) 11/11/20 13:50 Ur Leukocyte Esterase Lg (Negative) 11/11/20 13:50 Urine WBC (Auto) > 182.0 /HPF (0.0-6.0) H 11/11/20 13:50 Urine RBC (Auto) > 182.0 /HPF (0.0-6.0) 11/11/20 13:50 U Epithel Cells (Auto) 1.0 /HPF (0-13.0) 11/11/20 13:50 Urine Bacteria (Auto) 4+ /HPF (Negative) 11/11/20 13:50 Urine WBC Clumps 3+ /HPF 11/11/20 13:50 Calcium Oxalate Crystal Few 11/11/20 13:50 Urine Mucus Few /HPF 11/11/20 13:50 Vancomycin Trough 12.6 ug/mL (5.0-20.0) 10/21/20 13:54 Random Vancomycin 10.7 ug/mL (0-40.0) 10/16/20 13:09 Phenytoin 5.7 ug/mL (10.0-20.0) L 10/13/20 07:00 C. difficile Tox (PCR) Positive (Negative) 10/16/20 10:22 Coronavirus (PCR) Negative (Negative) 10/08/20 14:15 Blood Type O POSITIVE 10/02/20 12:50 Antibody Screen Negative 10/02/20 12:50 Crossmatch See Detail 10/02/20 12:50 - Diagnostic Impressions Diagnostic Impressions: Echocardiogram 10/03/20 13:42 Transthoracic Echocardiogram Indication: S/P Cardiac Arrest R/O Cardiomyopathy BP: 133/71 Conclusions *Global left ventricular systolic function is normal. *The estimated ejection fraction is 60-65%. *There is trace of mitral regurgitation. *The right 0heart chambers are both slightly dilated. *There is mild tricuspid regurgitation. *There is mild-moderate pulmonary hypertension. *The right ventricular systolic pressure is calculated at 44 mmHg. *The study quality is technically difficult. Findings Procedure Info: The study quality is technically difficult. The study is technically limited due to patient body habitus. The study was technically limited due to the patient's inability to lay in the left lateral decubitus position. Left Ventricle: The left ventricular chamber size is normal. There is no left ventricular hypertrophy. Global left ventricular systolic function is normal. The estimated ejection fraction is 60-65%. Left Atrium: The left atrial chamber size is normal. Right Ventricle: The right ventricle is slightly dilated. Right Atrium: The right atrium is mildly dilated. Aortic Valve: The aortic valve leaflets are mildly thickened. There is no evidence of aortic regurgitation. There is no evidence of aortic stenosis. Mitral Valve: The mitral valve leaflets are mildly thickened. There is trace of mitral regurgitation. There is no evidence of mitral stenosis. Tricuspid Valve: There is mild tricuspid regurgitation. The right ventricular systolic pressure is calculated at 44 mmHg. There is evidence of mild pulmonary hypertension. Pulmonic Valve: There is trace pulmonic regurgitation. Pericardium: There is no pericardial effusion. Aorta: There is no dilatation of the ascending aorta. There is no dilatation of the aortic root. Venous: The inferior vena cava is dilated. Measurements Chambers 2D Name Value Normal Range IVSd (2D) 1 cm (0.6 - 1.1) LVPWd (2D) 1.01 cm (0.6 - 1.1) LVIDd (2D) 4.58 cm (3.7 - 5.6) LVIDs (2D) 3.17 cm (2 - 3.8) LV FS (2D) 30.93 % - EF Teichholz (2D) 58.66 % - Ao root diameter (2D) 2.94 cm (2 - 3.7) Volumes/Mass Name Value Normal Range LA ESV SP 4CH (A/L) 72.82 ml - LA ESV SP 2CH (A/L) 66.86 ml - LA ESV BP (A/L) 74.49 ml - LA ESV SP 4CH (MOD) 71.03 ml - LA ESV SP 2CH (MOD) 64.3 ml - LV EDV SP 4CH (MOD) 98.82 ml - LV ESV SP 4CH (MOD) 24.8 ml - EF SP 4CH (MOD) 74.9 % - LV EDV SP 2CH (MOD) 86.1 ml - LV ESV SP 2CH (MOD) 36.93 ml - EF SP 2CH (MOD) 57.11 % - LV EDV BP 94.4 ml - LV ESV BP 32.66 ml - BP EF (MOD) 65.4 % - Diastolic/Systolic Function Name Value Normal Range MV E-wave Vmax 1.04 m/sec - MV deceleration time 160.46 msec - MV A-wave Vmax 0.92 m/sec - MV E:A ratio 1.14 ratio - Aortic Valve Name Value Normal Range AV Vmax 2.12 m/sec - AV VTI 22.37 cm - AV peak gradient 17.95 mmHg - AV mean gradient 7.29 mmHg - LVOT diameter 2.01 cm - LVOT Vmax 1.8 m/sec - LVOT VTI 27.17 cm - LVOT peak gradient 12.91 mmHg - LVOT mean gradient 6.83 mmHg - SV LVOT 86.42 ml - ANITA (continuity Vmax) 2.7 cm2 - ANITA (continuity VTI) 3.86 cm2 - Ascending Ao 3.18 cm - Tricuspid Valve Name Value Normal Range TV E-wave Vmax 0.88 m/sec - TR Vmax 3.01 m/sec - TR peak gradient 36.27 mmHg - RAP 8 mmHg - RVSP 44 mmHg - IVC diameter 2.65 cm (1.2 - 2.3) Pulmonic Valve/Qp:Qs Name Value Normal Range PV Vmax 1.22 m/sec - PV peak gradient 5.91 mmHg - RVOT Vmax 0.87 m/sec - RVOT VTI 13.32 cm - RVOT peak gradient 3 mmHg - PV acceleration time 110.37 msec - [place]/IV: Voiding Method External Female Catheter IV Catheter Type [Right Foot] INT / Saline Lock IV Catheter Type [Left Forearm Peripheral IV ] IV Catheter Type [Left Wrist] INT / Saline Lock IV Catheter Type [Right Hand] INT / Saline Lock IV Catheter Type [Right INT / Saline Lock Antecubital] IV Catheter Type [Right Upper Mid-line arm] IV Catheter Type [Left Triple Lumen Cath Internal Jugular] IV Catheter Type [Left Hand] Peripheral IV IV Catheter Type [Left Peripheral IV Antecubital] Active Medications - Current Medications Current Medications: Generic Name Dose Route Start Last Admin Trade Name Freq PRN Reason Stop Dose Admin Acetaminophen 650 mg 10/05/20 16:34 11/13/20 11:32 Acetaminophen 325 Mg/10.15 Ml Oral Liqd Unit Dose FEEDTUBE 650 mg Q6H PRN Administration Non Cardiac Pain or Temp>100.5 Albuterol 2.5 mg 11/05/20 13:03 11/06/20 13:04 Albuterol 2.5 Mg/3 Ml Nebu IH 2.5 mg Q4HRT PRN Administration Shortness Of Breath Lipase/Protease/Amylase 1 each 10/05/20 11:09 Lipase 10,500/Protease 25,000/Amylase 43,750 (Units) Dr Barakat FEEDTUBE PRN PRN For Clogged Feeding Tube Enoxaparin Sodium 40 mg 10/22/20 10:00 11/13/20 11:34 Enoxaparin 40 Mg/0.4 Ml Inj SUB-Q 40 mg DAILY ERINN Administration Protocol Famotidine 20 mg 10/07/20 10:00 11/13/20 22:48 Famotidine 20 Mg Tab PO 20 mg BID ERINN Administration Furosemide 40 mg 10/17/20 10:00 11/13/20 11:34 Furosemide 40 Mg Tab PO 40 mg QDAY ERINN Administration Hydralazine HCl 20 mg 10/07/20 11:49 10/17/20 07:20 Hydralazine 20 Mg/1 Ml Inj IV 20 mg Q6H PRN Administration SBP >170 Hydralazine HCl 50 mg 10/17/20 09:00 11/14/20 06:47 Hydralazine 25 Mg Tab PO 50 mg Q8HR ERINN Administration Hydrocortisone Sodium Succinate 100 mg 11/12/20 14:00 11/14/20 06:47 Hydrocortisone Sod Succ 100 Mg/2 Ml Vial IV 100 mg Q8HR ERINN Administration Dextrose 1,000 mls @ 75 mls/hr 10/13/20 11:00 11/13/20 22:47 D10w IV 75 mls/hr DIRECT ERINN Administration Ceftriaxone Sodium 1 gm in 50 mls @ 100 mls/hr 11/12/20 11:00 11/13/20 11:32 Rocephin/Ns 1 Gm/50 Ml IV 11/14/20 11:29 100 mls/hr Q24H ERINN Administration Protocol Labetalol HCl 300 mg 10/17/20 09:00 11/13/20 22:48 Labetalol 100 Mg Tab PO 300 mg TID ERINN Administration Simple Syrup 15 ml 10/05/20 11:09 Simple Syrup 15 Ml FEEDTUBE PRN PRN Hypoglycemia Simple Syrup 30 ml 10/05/20 11:09 Simple Syrup 15 Ml FEEDTUBE PRN PRN Hypoglycemia Sodium Bicarbonate 325 mg 10/05/20 11:09 11/06/20 10:35 Sodium Bicarbonate 325 Mg Tab FEEDTUBE 325 mg PRN PRN Administration For Clogged Feeding Tube Sodium Bicarbonate 1,300 mg 10/13/20 14:00 11/13/20 22:48 Sodium Bicarbonate 650 Mg Tab PO 1,300 mg TID ERINN Administration Topiramate 50 mg 10/05/20 11:00 11/13/20 22:47 Topiramate Tab 25 Mg Tab PO 50 mg Q12HR ERINN Administration Nutrition/Malnutrition Assess - Dietary Evaluation Nutrition/Malnutrition Findings: Nutrition Notes Start: 10/04/20 11:13 Freq: Status: Active Protocol: Document 11/10/20 11:16 CW (Rec: 11/10/20 11:23 CW [id number]) Co-Sign 11/10/20 11:16 LP Nutrition Notes Initial or Follow up Reassessment Current Diagnosis Acute Kidney Injury, Respiratory Failure Other Pertinent Diagnosis C-Diff, Cardiac arrest, s/p c- sectuion and supracervial hysterectomy Current Diet Jevity 1.2 at 60 ml/hr Labs/Tests reviewed Pertinent Medications lasix D10w at 75ml/hr Height 5 ft 8 in Weight 105.3 kg Viola Body Weight (kg) 63.63 BMI 35.3 Weight change and time frame Wt change noted, pt on lasix Weight Status Morbidly Obese Subjective/Other Information FU for TF tolerance, POC. Pt remains on T-piece with TF running at goal and D10w infusing. Per chart, discussed POC with family and pending SNF placement. Per RN, pt tolerating TF. Percent of energy/protein needs met: 100%/100% Burn Absent Trauma Absent GI Symptoms None Food Allergy Yes Current % PO Negligible Minimum of two criteria No Fluid Accumulation Mild (non-severe) #1 Nutrition Diagnosis Inadequate oral intake Diagnosis Progress(for reassessment Continues documentation) Is patient on ventilator? No Is Patient Ambulatory and/or Out of Bed No [facility] [phone] Kcal/Kg value to use for calculation 16 Approximate Energy Requirements Using 1685 kcal/Kg Calculation Used for Recommendations Kcal/kg Additional Notes Protein needs are 68-85g (0.8- 1g/kg AdjBW 85kg) Fluid needs are 1ml/kcal Nutrition Intervention Change Diet Order: Continue Nutrition Support: Jevity 1.2 at 60ml/hr. Flush 100ml q4h. Kcal 1,782 Protein (gm) 87 Fluid (mL) 1,259 Goal #1 TF tolerance Goal #2 Meet at least 75% of energy and protein needs Anticipated Discharge Needs: Unable to determine at this time Follow-Up By: 11/17/20 Additional Comments FU for TF tolerance, POC
--- NOTE | 2020-11-14 08:40 | Progress Note ---
Assessment and Plan A: POD#43 s/p repeat section at 36 wks secondary to Eclampsia and Cardiac Arrest with Resuscitation POD#43 s/p supracervical abdominal hysterectomy secondary to Uterine Atony, Hemorrhage and Disseminated Intravascular Coagulation (DIC) s/p multiple transfusions of blood products POD #24 s/p Percutaneous Tracheostomy, Fiberoptic Bronchoscopy, PEG tube placement Right Upper Extremity superficial and deep vein thrombosis on Lovenox Hypoglycemia Herpetic outbreak -Status post cardiac arrest 10/07/2020 requiring reintubation. -Shock, DIC: Secondary to hemorrhage-stable -Sepsis: followed by ID, abx/imaging recommendations noted -Acute kidney injury: resolved, labs stable -Acute respiratory failure: off vent presently -Preeclampsia: s/p Magnesium P: Awaiting retirement placement - Patient Problems (1) Encephalopathy Current Visit: Yes Status: Acute Subjective - Subjective Principal diagnosis: Eclampsia/HELLP Syndrome, ADOLPH, DIC; s/p , s/p supracervical hyst Interval history: 30y/o POD #43 s/p supracervical hysterectomy for eclampsia and DIC. Patient remains unresponsive to commands. Spontaneous, but no purposeful movement documented. Tracheostomy and PEG tube in place. Currently awaiting placement for [facility] Objective - Vital Signs Latest vital signs: Vital Signs Temp Pulse Resp BP Pulse Ox Pulse Ox 11/14/20 06:00 91 H 23 126/69 100 11/14/20 05:30 95 H 25 H 140/77 100 11/14/20 05:00 94 H 24 133/74 100 11/14/20 04:57 100 100 11/14/20 04:31 102 H 28 H 144/78 98 11/14/20 04:00 99.5 F 105 H 22 144/78 99 11/14/20 03:30 103 H 22 133/86 98 11/14/20 03:00 107 H 27 H 138/93 98 11/14/20 02:30 109 H 28 H 142/92 96 11/14/20 02:00 110 H 26 H 129/81 98 11/14/20 01:30 103 H 28 H 125/78 99 11/14/20 01:00 91 H 22 126/79 100 11/14/20 00:30 88 20 124/63 100 11/14/20 00:00 98.6 F 93 H 24 128/81 99 11/13/20 23:30 95 H 33 H 128/81 99 11/13/20 23:00 107 H 31 H 124/89 100 11/13/20 22:48 87 136/74 11/13/20 22:47 87 24 136/74 99 11/13/20 22:30 105 H 16 136/74 99 11/13/20 22:00 98 H 30 H 140/84 99 11/13/20 21:30 88 18 146/75 99 11/13/20 21:20 100 11/13/20 21:00 95 H 20 141/90 100 11/13/20 20:31 95 H 29 H 147/102 99 11/13/20 20:00 99.4 F 86 33 H 154/77 99 11/13/20 19:30 102 H 25 H 148/89 98 11/13/20 19:00 102 H 30 H 147/86 98 11/13/20 18:30 106 H 31 H 138/78 99 11/13/20 18:01 100 H 29 H 142/89 100 11/13/20 17:30 89 22 134/73 100 11/13/20 17:00 92 H 19 132/74 98 11/13/20 16:31 91 H 20 127/65 97 11/13/20 16:19 99 99 11/13/20 16:00 98.9 F 89 21 132/76 100 11/13/20 15:56 89 132/73 11/13/20 15:30 85 20 132/73 100 11/13/20 15:00 98 H 25 H 136/84 100 11/13/20 14:30 99 H 32 H 138/84 100 11/13/20 14:00 94 H 22 128/81 100 11/13/20 13:31 102 H 31 H 128/81 100 11/13/20 13:01 102 H 33 H 123/72 100 11/13/20 12:30 96 H 29 H 124/68 100 11/13/20 12:00 98.9 F 95 H 23 123/75 100 11/13/20 11:33 104 H 129/72 11/13/20 11:30 105 H 23 129/72 100 11/13/20 11:00 105 H 24 142/68 100 11/13/20 10:30 104 H 24 128/73 100 11/13/20 10:00 107 H 19 129/73 100 11/13/20 09:30 100 H 22 176/105 99 11/13/20 09:00 107 H 30 H 151/94 98 Intake and Output 11/13/20 11/14/20 11/14/20 22:59 06:59 14:59 Intake Total 680 680 Output Total 1000 1200 Balance -320 -520 Intake: Intake, Free Water 200 200 Tube Feeding 480 480 Output: Urine 1000 1200 Indwelling Catheter 1000 1200 Other: Total, Intake Amount 60 60 Total, Output Amount 1000 1200 Voiding Method External Female Catheter External Female Catheter # Bowel Movements 1 1 - Labs Labs: Abnormal lab results 11/13/20 11/13/20 11/13/20 Range/Units 07:33 10:05 11:50 Glucose 114 H (65-100) mg/dL POC Glucose 106 H 113 H (70-105) mg/dL Phosphorus 4.60 H (2.5-4.5) mg/dL 11/13/20 11/14/20 Range/Units 17:20 05:26 Glucose (65-100) mg/dL POC Glucose 110 H 110 H (70-105) mg/dL Phosphorus (2.5-4.5) mg/dL
[2020-11-14] MEDS: FUROSEMIDE 40 MG TAB PO SCH (09:32)
[2020-11-14] MEDS: FAMOTIDINE 20 MG TAB PO SCH ×2 (09:32→22:33)
[2020-11-14] MEDS: TOPIRAMATE TAB 25 MG TAB PO SCH ×2 (09:32→22:31)
[2020-11-14] MEDS: SODIUM BICARBONATE 650 MG TAB PO SCH ×3 (09:32→22:31)
[2020-11-14] MEDS: ENOXAPARIN 40 MG/0.4 ML INJ SUB-Q SCH (09:32)
--- NOTE | 2020-11-14 10:49 | Progress Note ---
Assessment and Plan 30 y/o female with Eclampsia, s/p emergent section with DIC, acute respiratory failure and worsening renal function. 11/14/20: Will speak with radiology again on Monday to ask them to help me with the ordering of the scan. Continue stress dose steroids at least through tomorrow. No real change in blood sugars as of yet. 11/13/20: Attempt a trial of stress dose steroids to see if this improves sugar levels. I have called CT 3x but no answer. Will go down there and see if they are able to do a CT of the abdomen with pancreas protocol to observe for insulinoma. Continue supportive care and airway maintenance therapy. 11/12/20: Continue D10. I have reached out to an endocrine physician from an outside hospital who is willing to help me with the work up and possible help with diagnosis. 11/11/20: Call labs today about proinuslin. Signed letter for family today. Needs endocrine consult but not available here. 11/10/20: If proinsulin not back by tomorrow will call lab. Once I have all info, will see if I can obtain and endocrine consult via phone to discuss case. Continue supplemental oxygen. Needs PT 11/09/20: Follow up Proinsulin levels. No endocrine consult available here, but will do more research to see if we can find out why she remains D10 dependent. Pulm status is stable. Continue T-piece. Not a candidate for floor given D10 requirement. 11/06/20: No new recs. Will continue to check for outside lab results over the weekend. 11/05/20: Awaiting outside labs to work up hypoglycemia. Will add some PRN albuterol nebs to see if this will help to thin out her secretions. 11/04/20: No changes. No new recs. Awaiting send out labs to help figure out hypoglycemia. 11/03/20: Continue D10. Await send out labs. 11/02/20: Called lab today to ask how to order these send out labs. Continue D10 along with feeds for now. Stopped robinol and no further reports of increased thickness of secretions. given D10 requirement, do not feel comfortable with transition to the floor. 11/01/20: Will stop Robinol as this may be making secretions to thick. Huge risk for mucous plugging given mental state. Continue D10 and waiting on labs from yesterday. LFT's repeated and AST elevated along with alk phos. Both of these were elevated on admission, then resolved and now are elevated again. In current clinical state, not sure what to make of those numbers. They do not help with trying to figure out hypoglycemia and persistent need for D10. Continue IMCU care. 10/31/20: Will order midline for IV team vs peripheral IV's (multiple). Needs access for d10 as we have not been able to figure out why she is so hypoglyemic. Will measure serum insulin levels and C-peptide levels, as well proinsulin. All of these labs are sendouts so will have to call down to ask how to order as they are not coming up in [facility]. Given her requirement for supplemental IV sugar, not a candidate for floor transfer. 10/30/20: Continue step down monitoring for now. If does well the next 24-36 hours, then will consider floor transfer. Really needs to continue PT with PROM. Will speak with CM about options for here now that critical needs are becoming minimal. 10/29/20: Off vent now for 24 hours. Tolerating T-Piece. Will transition to step down for a few days. If does well there, consider transition to floor. Continue PT. Guarded prognosis. 10/28/20: Daily T-piece trials for as long as tolerated. Attempt to push further daily. OT does not do passive range of motion. Per PT note will do passive range of motion with patient. Guarded prognosis. Hoping to wean off vent and transition to floor. 10/27/20: Continue daily T-piece trials for as long as tolerated. Ok with resti ng on either PSV or full rate if needed at night but need to strengthen her respiratory muscles. PT/OT if possible. Will transition to step down prior to going to floor to insure stability. 10/26/20: Will obtain ABG today. If good, will attempt on T-piece later. Continue PT/OT. Will speak with CM about possibility of LTACH or nursing facility that can take trached patients. 10/23/20: Daily PSV trials for as long as patient will tolerate. Needs PT/OT consult for passive range of motion. 10/22/20: Will start prolonged PSV trials. Attempt to wean from vent and then transition to floor to see if mental status improves. Continue tube feeds. 10/21/20: Trach and peg placed. No sedation. Restart Lovenox for Upper Ext DVT. Restart feeds when surgery states ok to use PEG. C. Diff treatment per ID. Guarded prognosis. Will be a longterm wean. Hopeful to wean off vent at least and then can transfer to floor. 10/20/20: NPO after midnight. DVT study just read from 10/14 on yesterday showing upper ext DVT. Started on Lovenox but need to hold therapy until after surgery. could be source of fevers. No sedation. 10/19/20: Stable BP. Will meet/talk with family at noon over the phone with myself and case management. Need to discuss goals of care and what next steps would be. Patient would need trach and peg and transfer to LTACH if family ok with this. Follow up speciation of GNR's in blood. Has been on Cefepime. Continues therapy for C. Diff. Guarded prognosis. Continue daily PSV trials but not ready for extubation secondary to mental state. 10/18/20: Blood pressure is much better with the addition of meds started on yesterday. Need to have family meeting jesica in regards to goals of care. Continue Daily PSV trials but not ready for extubation. Continue therapy for C. Diff per ID. 10/17/20: CT scan was of no help in regards to fevers. C. Diff is positive and BP now is more uncontrolled despite increasing labetalol. Today will increase to 300 TID. Added TID Hydralazine and added PO lasix given her mild pulmonary htn seen on echo. Spoke with mother over the phone and she requests to come see the patient. Given current circumstances, will allow her to come briefly today and then will speak with her at the bedside. No neurology is available at the time and suspect these will be the majority of her questions. Tolerated PSV briefly yesterday and will do again today but not for extended periods as given her mental state she is not a candidate for extubation. I will also ask the mother about manager intermediate care (trach and peg) when she comes today. Overall prognosis is guarded to poor. If oral meds cannot regulate blood pressure, may need Cardene drip. Continue therapy for C. Diff per ID. Subjective Date of service: 11/14/20 Principal diagnosis: Eclampsia/HELLP Syndrome, ADOLPH, DIC; s/p , s/p supracervical hyst Interval history: No acute events. Unable to order scan as described by radiology. Objective Vital Signs - 12hr 11/13/20 11/13/20 11/13/20 22:47 22:48 23:00 Temperature Pulse Rate 87 87 107 H Respiratory 24 31 H Rate Blood Pressure 136/74 136/74 124/89 O2 Sat by Pulse 99 100 Oximetry O2 Sat by Pulse Oximetry [ Assessment] 11/13/20 11/14/20 11/14/20 23:30 00:00 00:30 Temperature 98.6 F Pulse Rate 95 H 93 H 88 Respiratory 33 H 24 20 Rate Blood Pressure 128/81 128/81 124/63 O2 Sat by Pulse 99 99 100 Oximetry O2 Sat by Pulse Oximetry [ Assessment] 11/14/20 11/14/20 11/14/20 01:00 01:30 02:00 Temperature Pulse Rate 91 H 103 H 110 H Respiratory 22 28 H 26 H Rate Blood Pressure 126/79 125/78 129/81 O2 Sat by Pulse 100 99 98 Oximetry O2 Sat by Pulse Oximetry [ Assessment] 11/14/20 11/14/20 11/14/20 02:30 03:00 03:30 Temperature Pulse Rate 109 H 107 H 103 H Respiratory 28 H 27 H 22 Rate Blood Pressure 142/92 138/93 133/86 O2 Sat by Pulse 96 98 98 Oximetry O2 Sat by Pulse Oximetry [ Assessment] 11/14/20 11/14/20 11/14/20 04:00 04:31 04:57 Temperature 99.5 F Pulse Rate 105 H 102 H Respiratory 22 28 H Rate Blood Pressure 144/78 144/78 O2 Sat by Pulse 99 98 100 Oximetry O2 Sat by Pulse 100 Oximetry [ Assessment] 11/14/20 11/14/20 11/14/20 05:00 05:30 06:00 Temperature Pulse Rate 94 H 95 H 91 H Respiratory 24 25 H 23 Rate Blood Pressure 133/74 140/77 126/69 O2 Sat by Pulse 100 100 100 Oximetry O2 Sat by Pulse Oximetry [ Assessment] 11/14/20 11/14/20 11/14/20 06:30 07:00 07:30 Temperature Pulse Rate 109 H 103 H 98 H Respiratory 33 H 26 H 19 Rate Blood Pressure 128/73 129/79 132/69 O2 Sat by Pulse 100 100 100 Oximetry O2 Sat by Pulse Oximetry [ Assessment] 11/14/20 11/14/20 11/14/20 08:00 08:30 08:50 Temperature 99.5 F Pulse Rate 80 83 Respiratory 15 14 Rate Blood Pressure 132/69 127/65 O2 Sat by Pulse 100 100 Oximetry O2 Sat by Pulse 98 Oximetry [ Assessment] 11/14/20 11/14/20 11/14/20 08:51 09:01 09:30 Temperature Pulse Rate 82 85 Respiratory 14 14 Rate Blood Pressure 140/77 129/73 O2 Sat by Pulse 98 98 98 Oximetry O2 Sat by Pulse Oximetry [ Assessment] 11/14/20 11/14/20 09:31 10:00 Temperature Pulse Rate 72 101 H Respiratory 23 Rate Blood Pressure 129/73 115/71 O2 Sat by Pulse 99 Oximetry O2 Sat by Pulse Oximetry [ Assessment] Constitutional: comatose, other (s/p trach) Eyes: non-icteric ENT: oropharynx moist Neck: other (large in cirumference) Effort: normal Ascultation: Bilateral: clear, diminished breath sounds, rhonchi, other (coarse BS bilaterally) Percussion: Bilateral: not dull Cardiovascular: regular rate and rhythm, other (no mrg) Gastrointestinal: normoactive bowel sounds, soft Extremities: no cyanosis, pink and warm Neurologic: other (unresponsive, not following commands, not tracking) Psychiatric: other (unable to assess) CBC and BMP: 11/07/20 04:44 11/13/20 10:05 ABG, PT/INR, D-dimer: ABG ABG pH 7.459 pH Units (7.350-7.450) H 10/26/20 10:30 POC ABG pCO2 20.7 mmHg (32.0-48.0) L 10/13/20 07:18 ABG pCO2 32.4 mm Hg 10/26/20 10:30 POC ABG pO2 137.9 mmHg (83-108) H 10/13/20 07:18 ABG pO2 112.2 mm Hg (80.0-90.0) H 10/26/20 10:30 POC ABG HCO3 14.8 10/13/20 07:18 ABG O2 Saturation 98.2 % (95.0-99.0) 10/26/20 10:30 PT/INR, D-dimer PT 13.6 Sec. (12.2-14.9) 10/21/20 13:54 INR 1.06 (0.87-1.13) 10/21/20 13:54 D-Dimer 1974.47 ng/mlDDU (0-234) H 11/11/20 13:50 Abnormal lab findings: Abnormal Labs 10/02/20 10/02/20 10/02/20 12:03 12:18 12:18 WBC 14.9 H RBC Hgb 9.1 L Hct MCV MCH 22 L MCHC 28 L RDW 17.6 H Plt Count 102 L Lymph % (Auto) [place] % (Auto) Lymph # (Auto) [place] # (Auto) Baso # (Auto) Seg Neutrophils % Seg Neuts % (Manual) 36.0 L Lymphocytes % (Manual) 49.0 H Monocytes % (Manual) Nucleated RBC % 6.0 H Seg Neutrophils # Seg Neutrophils # Man Lymphocytes # (Manual) 7.3 H Monocytes # (Manual) PT INR APTT Fibrinogen D-Dimer ABG pH POC ABG pCO2 POC ABG pO2 ABG pO2 ABG HCO3 ABG Base Excess ABG Hemoglobin ABG Oxyhemoglobin ABG Sodium ABG Potassium ABG Chloride ABG Glucose VBG pH Oxyhemoglobin Carboxyhemoglobin Sodium 134 L Potassium Chloride Carbon Dioxide 12 L BUN 6 L Creatinine Glucose 390 H POC Glucose 451 H Random Insulin C-Peptide Lactic Acid Calcium Ionized Calcium Phosphorus Magnesium AST 135 H ALT 85 H Alkaline Phosphatase 172 H Lactate Dehydrogenase 641 H NT-Pro-B Natriuret Pep Total Protein 5.4 L Albumin 2.3 L Arterial Blood Glucose Arterial Blood Ionized Calcium Urine WBC (Auto) Vancomycin Trough Phenytoin Crossmatch 10/02/20 10/02/20 10/02/20 12:50 13:05 13:05 WBC 38.6 H RBC Hgb 8.9 L Hct 29.0 L MCV 73 L MCH 22 L MCHC RDW 17.2 H Plt Count Lymph % (Auto) [place] % (Auto) Lymph # (Auto) [place] # (Auto) Baso # (Auto) Seg Neutrophils % Seg Neuts % (Manual) Lymphocytes % (Manual) Monocytes % (Manual) Nucleated RBC % 2.0 H Seg Neutrophils # Seg Neutrophils # Man 20.1 H Lymphocytes # (Manual) 10.4 H Monocytes # (Manual) 2.3 H PT INR APTT Fibrinogen D-Dimer ABG pH POC ABG pCO2 POC ABG pO2 ABG pO2 ABG HCO3 ABG Base Excess ABG Hemoglobin ABG Oxyhemoglobin ABG Sodium ABG Potassium ABG Chloride ABG Glucose VBG pH Oxyhemoglobin Carboxyhemoglobin Sodium Potassium Chloride Carbon Dioxide BUN Creatinine Glucose POC Glucose Random Insulin C-Peptide Lactic Acid Calcium Ionized Calcium Phosphorus Magnesium AST 184 H ALT 113 H Alkaline Phosphatase Lactate Dehydrogenase 769 H NT-Pro-B Natriuret Pep Total Protein Albumin Arterial Blood Glucose Arterial Blood Ionized Calcium Urine WBC (Auto) Vancomycin Trough Phenytoin Crossmatch See Detail 10/02/20 10/02/20 10/02/20 16:25 16:35 16:35 WBC RBC Hgb Hct MCV MCH MCHC RDW Plt Count Lymph % (Auto) [place] % (Auto) Lymph # (Auto) [place] # (Auto) Baso # (Auto) Seg Neutrophils % Seg Neuts % (Manual) Lymphocytes % (Manual) Monocytes % (Manual) Nucleated RBC % Seg Neutrophils # Seg Neutrophils # Man Lymphocytes # (Manual) Monocytes # (Manual) PT INR APTT Fibrinogen D-Dimer ABG pH 7.031 L* POC ABG pCO2 POC ABG pO2 ABG pO2 116.8 H ABG HCO3 12.7 L ABG Base Excess -16.9 L ABG Hemoglobin 7.8 L ABG Oxyhemoglobin ABG Sodium ABG Potassium ABG Chloride ABG Glucose VBG pH Oxyhemoglobin 94.9 L Carboxyhemoglobin Sodium Potassium Chloride Carbon Dioxide BUN Creatinine Glucose 403 H POC Glucose Random Insulin C-Peptide Lactic Acid 11.40 H* Calcium 6.3 L D Ionized Calcium Phosphorus Magnesium AST 70 H ALT Alkaline Phosphatase Lactate Dehydrogenase NT-Pro-B Natriuret Pep Total Protein 1.9 L D Albumin 1.2 L Arterial Blood Glucose Arterial Blood Ionized Calcium Urine WBC (Auto) Vancomycin Trough Phenytoin Crossmatch 10/02/20 10/02/20 10/02/20 18:18 18:18 22:30 WBC 11.5 H RBC 2.06 L Hgb 5.5 L* D Hct 17.3 L* D MCV MCH 27 L MCHC RDW 19.5 H Plt Count 60 L Lymph % (Auto) [place] % (Auto) Lymph # (Auto) [place] # (Auto) Baso # (Auto) Seg Neutrophils % Seg Neuts % (Manual) Lymphocytes % (Manual) 8.0 L Monocytes % (Manual) 8.0 H Nucleated RBC % 8.0 H Seg Neutrophils # Seg Neutrophils # Man Lymphocytes # (Manual) 0.9 L Monocytes # (Manual) 0.9 H PT 37.1 H INR 3.71 H APTT 135.8 H* Fibrinogen D-Dimer ABG pH 7.067 L* POC ABG pCO2 POC ABG pO2 ABG pO2 183.0 H ABG HCO3 14.1 L ABG Base Excess -15.1 L ABG Hemoglobin 7.7 L ABG Oxyhemoglobin ABG Sodium ABG Potassium ABG Chloride ABG Glucose VBG pH Oxyhemoglobin Carboxyhemoglobin Sodium Potassium Chloride Carbon Dioxide BUN Creatinine Glucose POC Glucose Random Insulin C-Peptide Lactic Acid Calcium Ionized Calcium Phosphorus Magnesium AST ALT Alkaline Phosphatase Lactate Dehydrogenase NT-Pro-B Natriuret Pep Total Protein Albumin Arterial Blood Glucose Arterial Blood Ionized Calcium Urine WBC (Auto) Vancomycin Trough Phenytoin Crossmatch 10/02/20 10/02/20 10/03/20 Unknown Unknown 00:01 WBC RBC Hgb Hct MCV MCH MCHC RDW Plt Count Lymph % (Auto) [place] % (Auto) Lymph # (Auto) [place] # (Auto) Baso # (Auto) Seg Neutrophils % Seg Neuts % (Manual) Lymphocytes % (Manual) Monocytes % (Manual) Nucleated RBC % Seg Neutrophils # Seg Neutrophils # Man Lymphocytes # (Manual) Monocytes # (Manual) PT 61.1 H INR 6.92 H* APTT 158.7 H* Fibrinogen < 60 L* D-Dimer > 97511 H ABG pH POC ABG pCO2 POC ABG pO2 ABG pO2 ABG HCO3 ABG Base Excess ABG Hemoglobin ABG Oxyhemoglobin ABG Sodium ABG Potassium ABG Chloride ABG Glucose VBG pH 6.949 L* Oxyhemoglobin Carboxyhemoglobin Sodium Potassium Chloride Carbon Dioxide BUN Creatinine Glucose POC Glucose 196 H Random Insulin C-Peptide Lactic Acid Calcium Ionized Calcium Phosphorus Magnesium AST ALT Alkaline Phosphatase Lactate Dehydrogenase NT-Pro-B Natriuret Pep Total Protein Albumin Arterial Blood Glucose Arterial Blood Ionized Calcium Urine WBC (Auto) Vancomycin Trough Phenytoin Crossmatch 10/03/20 10/03/20 10/03/20 00:40 00:40 00:40 WBC RBC Hgb Hct MCV MCH MCHC RDW Plt Count Lymph % (Auto) [place] % (Auto) Lymph # (Auto) [place] # (Auto) Baso # (Auto) Seg Neutrophils % Seg Neuts % (Manual) Lymphocytes % (Manual) Monocytes % (Manual) Nucleated RBC % Seg Neutrophils # Seg Neutrophils # Man Lymphocytes # (Manual) Monocytes # (Manual) PT 15.1 H INR 1.21 H APTT Fibrinogen D-Dimer ABG pH POC ABG pCO2 POC ABG pO2 ABG pO2 ABG HCO3 ABG Base Excess ABG Hemoglobin ABG Oxyhemoglobin ABG Sodium ABG Potassium ABG Chloride ABG Glucose VBG pH Oxyhemoglobin Carboxyhemoglobin Sodium 136 L Potassium Chloride Carbon Dioxide BUN Creatinine 1.6 H D Glucose 106 H POC Glucose Random Insulin C-Peptide Lactic Acid 5.60 H* Calcium 6.5 L Ionized Calcium Phosphorus Magnesium AST 232 H ALT 104 H Alkaline Phosphatase Lactate Dehydrogenase NT-Pro-B Natriuret Pep Total Protein 3.9 L D Albumin 2.4 L Arterial Blood Glucose Arterial Blood Ionized Calcium Urine WBC (Auto) Vancomycin Trough Phenytoin Crossmatch 10/03/20 10/03/20 10/03/20 02:08 02:08 02:08 WBC 17.6 H RBC 3.27 L Hgb 9.9 L D Hct 29.9 L D MCV MCH MCHC RDW 16.5 H Plt Count 75 L Lymph % (Auto) [place] % (Auto) Lymph # (Auto) [place] # (Auto) Baso # (Auto) Seg Neutrophils % Seg Neuts % (Manual) 76.0 H Lymphocytes % (Manual) Monocytes % (Manual) Nucleated RBC % 8.0 H Seg Neutrophils # Seg Neutrophils # Man 13.4 H Lymphocytes # (Manual) Monocytes # (Manual) PT INR APTT Fibrinogen D-Dimer ABG pH POC ABG pCO2 POC ABG pO2 ABG pO2 ABG HCO3 ABG Base Excess ABG Hemoglobin ABG Oxyhemoglobin ABG Sodium ABG Potassium ABG Chloride ABG Glucose VBG pH Oxyhemoglobin Carboxyhemoglobin Sodium Potassium Chloride Carbon Dioxide 19 L BUN Creatinine 1.4 H Glucose 306 H POC Glucose Random Insulin C-Peptide Lactic Acid 10.50 H* Calcium 6.4 L Ionized Calcium Phosphorus Magnesium AST ALT Alkaline Phosphatase Lactate Dehydrogenase NT-Pro-B Natriuret Pep Total Protein Albumin Arterial Blood Glucose Arterial Blood Ionized Calcium Urine WBC (Auto) Vancomycin Trough Phenytoin Crossmatch 10/03/20 10/03/20 10/03/20 02:42 03:59 05:31 WBC RBC Hgb Hct MCV MCH MCHC RDW Plt Count Lymph % (Auto) [place] % (Auto) Lymph # (Auto) [place] # (Auto) Baso # (Auto) Seg Neutrophils % Seg Neuts % (Manual) Lymphocytes % (Manual) Monocytes % (Manual) Nucleated RBC % Seg Neutrophils # Seg Neutrophils # Man Lymphocytes # (Manual) Monocytes # (Manual) PT INR APTT Fibrinogen D-Dimer ABG pH 7.144 L POC ABG pCO2 54.4 H POC ABG pO2 ABG pO2 ABG HCO3 ABG Base Excess ABG Hemoglobin 10.0 L ABG Oxyhemoglobin ABG Sodium ABG Potassium ABG Chloride 108.0 H ABG Glucose 306 H VBG pH Oxyhemoglobin Carboxyhemoglobin Sodium Potassium Chloride Carbon Dioxide BUN Creatinine Glucose POC Glucose 209 H Random Insulin C-Peptide Lactic Acid 9.20 H* Calcium Ionized Calcium Phosphorus Magnesium AST ALT Alkaline Phosphatase Lactate Dehydrogenase NT-Pro-B Natriuret Pep Total Protein Albumin Arterial Blood Glucose 306 H Arterial Blood Ionized Calcium 3.7 L Urine WBC (Auto) Vancomycin Trough Phenytoin Crossmatch 10/03/20 10/03/20 10/03/20 09:00 09:00 09:00 WBC 27.4 H RBC 2.84 L Hgb 8.5 L Hct 25.1 L MCV MCH MCHC RDW 16.1 H Plt Count 72 L Lymph % (Auto) [place] % (Auto) Lymph # (Auto) [place] # (Auto) Baso # (Auto) Seg Neutrophils % Seg Neuts % (Manual) Lymphocytes % (Manual) 11.0 L Monocytes % (Manual) Nucleated RBC % 3.0 H Seg Neutrophils # Seg Neutrophils # Man 18.4 H Lymphocytes # (Manual) Monocytes # (Manual) 1.9 H PT INR APTT Fibrinogen D-Dimer ABG pH POC ABG pCO2 POC ABG pO2 ABG pO2 ABG HCO3 ABG Base Excess ABG Hemoglobin ABG Oxyhemoglobin ABG Sodium ABG Potassium ABG Chloride ABG Glucose VBG pH Oxyhemoglobin Carboxyhemoglobin Sodium Potassium Chloride Carbon Dioxide BUN Creatinine 1.7 H Glucose 216 H POC Glucose Random Insulin C-Peptide Lactic Acid 9.20 H* Calcium 6.3 L Ionized Calcium Phosphorus Magnesium AST 331 H ALT 171 H Alkaline Phosphatase Lactate Dehydrogenase NT-Pro-B Natriuret Pep Total Protein 3.7 L Albumin 1.9 L Arterial Blood Glucose Arterial Blood Ionized Calcium Urine WBC (Auto) Vancomycin Trough Phenytoin Crossmatch 10/03/20 10/03/20 10/03/20 11:20 11:46 11:50 WBC 28.7 H RBC 2.67 L Hgb 8.0 L Hct 23.7 L MCV MCH MCHC RDW 16.6 H Plt Count 76 L Lymph % (Auto) [place] % (Auto) Lymph # (Auto) [place] # (Auto) Baso # (Auto) Seg Neutrophils % Seg Neuts % (Manual) Lymphocytes % (Manual) Monocytes % (Manual) Nucleated RBC % Seg Neutrophils # Seg Neutrophils # Man Lymphocytes # (Manual) Monocytes # (Manual) PT INR APTT Fibrinogen D-Dimer ABG pH POC ABG pCO2 POC ABG pO2 ABG pO2 ABG HCO3 ABG Base Excess ABG Hemoglobin ABG Oxyhemoglobin ABG Sodium ABG Potassium ABG Chloride ABG Glucose VBG pH Oxyhemoglobin Carboxyhemoglobin Sodium Potassium Chloride Carbon Dioxide BUN Creatinine Glucose POC Glucose 125 H Random Insulin C-Peptide Lactic Acid 8.00 H* Calcium Ionized Calcium Phosphorus Magnesium AST ALT Alkaline Phosphatase Lactate Dehydrogenase NT-Pro-B Natriuret Pep Total Protein Albumin Arterial Blood Glucose Arterial Blood Ionized Calcium Urine WBC (Auto) Vancomycin Trough Phenytoin Crossmatch 10/03/20 10/04/20 10/04/20 11:50 00:40 00:40 WBC RBC Hgb 6.8 L Hct 19.4 L* MCV MCH MCHC RDW Plt Count 49 L Lymph % (Auto) [place] % (Auto) Lymph # (Auto) [place] # (Auto) Baso # (Auto) Seg Neutrophils % Seg Neuts % (Manual) Lymphocytes % (Manual) Monocytes % (Manual) Nucleated RBC % Seg Neutrophils # Seg Neutrophils # Man Lymphocytes # (Manual) Monocytes # (Manual) PT INR APTT Fibrinogen D-Dimer ABG pH 7.244 L POC ABG pCO2 POC ABG pO2 ABG pO2 ABG HCO3 ABG Base Excess -4.5 L ABG Hemoglobin 7.3 L ABG Oxyhemoglobin ABG Sodium ABG Potassium ABG Chloride ABG Glucose VBG pH Oxyhemoglobin Carboxyhemoglobin Sodium Potassium Chloride Carbon Dioxide BUN Creatinine Glucose POC Glucose Random Insulin C-Peptide Lactic Acid Calcium Ionized Calcium Phosphorus Magnesium AST ALT Alkaline Phosphatase Lactate Dehydrogenase NT-Pro-B Natriuret Pep Total Protein Albumin Arterial Blood Glucose Arterial Blood Ionized Calcium Urine WBC (Auto) Vancomycin Trough Phenytoin Crossmatch 10/04/20 10/04/20 10/04/20 03:53 10:00 10:00 WBC 14.6 H RBC 2.57 L Hgb 7.6 L Hct 22.5 L MCV MCH MCHC RDW 15.8 H Plt Count 38 L Lymph % (Auto) 7.7 L [place] % (Auto) Lymph # (Auto) 1.1 L [place] # (Auto) 0.9 H Baso # (Auto) Seg Neutrophils % 85.6 H Seg Neuts % (Manual) Lymphocytes % (Manual) Monocytes % (Manual) Nucleated RBC % Seg Neutrophils # 12.5 H Seg Neutrophils # Man Lymphocytes # (Manual) Monocytes # (Manual) PT INR APTT Fibrinogen D-Dimer ABG pH POC ABG pCO2 POC ABG pO2 110.6 H ABG pO2 ABG HCO3 ABG Base Excess ABG Hemoglobin 6.7 L ABG Oxyhemoglobin ABG Sodium 132.0 L ABG Potassium ABG Chloride ABG Glucose 111 H VBG pH Oxyhemoglobin Carboxyhemoglobin Sodium 134 L D Potassium Chloride 97.6 L Carbon Dioxide BUN Creatinine 1.7 H Glucose POC Glucose Random Insulin C-Peptide Lactic Acid Calcium 6.3 L Ionized Calcium Phosphorus Magnesium AST 203 H ALT 81 H Alkaline Phosphatase Lactate Dehydrogenase NT-Pro-B Natriuret Pep Total Protein 3.9 L Albumin 2.3 L Arterial Blood Glucose 111 H Arterial Blood Ionized Calcium 3.5 L Urine WBC (Auto) Vancomycin Trough Phenytoin Crossmatch 10/04/20 10/04/20 10/04/20 10:00 10:00 10:14 WBC RBC Hgb Hct MCV MCH MCHC RDW Plt Count Lymph % (Auto) [place] % (Auto) Lymph # (Auto) [place] # (Auto) Baso # (Auto) Seg Neutrophils % Seg Neuts % (Manual) Lymphocytes % (Manual) Monocytes % (Manual) Nucleated RBC % Seg Neutrophils # Seg Neutrophils # Man Lymphocytes # (Manual) Monocytes # (Manual) PT INR APTT Fibrinogen D-Dimer > 70362 H ABG pH POC ABG pCO2 POC ABG pO2 ABG pO2 ABG HCO3 ABG Base Excess ABG Hemoglobin ABG Oxyhemoglobin ABG Sodium ABG Potassium ABG Chloride ABG Glucose VBG pH Oxyhemoglobin Carboxyhemoglobin Sodium Potassium Chloride Carbon Dioxide BUN Creatinine Glucose POC Glucose Random Insulin C-Peptide Lactic Acid 3.90 H* Calcium Ionized Calcium Phosphorus Magnesium AST ALT Alkaline Phosphatase Lactate Dehydrogenase NT-Pro-B Natriuret Pep 2788 H Total Protein Albumin Arterial Blood Glucose Arterial Blood Ionized Calcium Urine WBC (Auto) Vancomycin Trough Phenytoin Crossmatch 10/04/20 10/04/20 10/04/20 14:00 14:00 18:00 WBC 15.7 H RBC 3.17 L Hgb 9.3 L 9.6 L Hct 27.2 L 28.0 L MCV MCH MCHC RDW 16.9 H Plt Count 41 L Lymph % (Auto) 8.6 L [place] % (Auto) Lymph # (Auto) [place] # (Auto) 0.9 H Baso # (Auto) Seg Neutrophils % 85.4 H Seg Neuts % (Manual) Lymphocytes % (Manual) Monocytes % (Manual) Nucleated RBC % Seg Neutrophils # 13.4 H Seg Neutrophils # Man Lymphocytes # (Manual) Monocytes # (Manual) PT INR APTT Fibrinogen D-Dimer ABG pH POC ABG pCO2 POC ABG pO2 ABG pO2 ABG HCO3 ABG Base Excess ABG Hemoglobin ABG Oxyhemoglobin ABG Sodium ABG Potassium ABG Chloride ABG Glucose VBG pH Oxyhemoglobin Carboxyhemoglobin Sodium 133 L Potassium Chloride 96.4 L Carbon Dioxide BUN 18 H Creatinine 1.7 H Glucose POC Glucose Random Insulin C-Peptide Lactic Acid Calcium 6.3 L Ionized Calcium Phosphorus Magnesium AST ALT Alkaline Phosphatase Lactate Dehydrogenase NT-Pro-B Natriuret Pep Total Protein Albumin Arterial Blood Glucose Arterial Blood Ionized Calcium Urine WBC (Auto) Vancomycin Trough Phenytoin Crossmatch 10/04/20 10/04/20 10/05/20 18:00 22:00 05:00 WBC 17.6 H RBC 3.34 L Hgb 9.9 L Hct 29.4 L MCV MCH MCHC RDW 17.1 H Plt Count 56 L Lymph % (Auto) 8.5 L [place] % (Auto) Lymph # (Auto) [place] # (Auto) 1.0 H Baso # (Auto) Seg Neutrophils % 85.1 H Seg Neuts % (Manual) Lymphocytes % (Manual) Monocytes % (Manual) Nucleated RBC % Seg Neutrophils # 15.0 H Seg Neutrophils # Man Lymphocytes # (Manual) Monocytes # (Manual) PT INR APTT Fibrinogen D-Dimer ABG pH POC ABG pCO2 POC ABG pO2 ABG pO2 ABG HCO3 ABG Base Excess ABG Hemoglobin ABG Oxyhemoglobin ABG Sodium ABG Potassium ABG Chloride ABG Glucose VBG pH Oxyhemoglobin Carboxyhemoglobin Sodium 136 L Potassium Chloride Carbon Dioxide BUN 18 H Creatinine 1.7 H Glucose POC Glucose Random Insulin C-Peptide Lactic Acid 2.30 H* Calcium 6.6 L Ionized Calcium Phosphorus Magnesium AST ALT Alkaline Phosphatase Lactate Dehydrogenase NT-Pro-B Natriuret Pep Total Protein Albumin Arterial Blood Glucose Arterial Blood Ionized Calcium Urine WBC (Auto) Vancomycin Trough Phenytoin Crossmatch 10/05/20 10/05/20 10/05/20 05:00 05:00 05:03 WBC RBC Hgb Hct MCV MCH MCHC RDW Plt Count Lymph % (Auto) [place] % (Auto) Lymph # (Auto) [place] # (Auto) Baso # (Auto) Seg Neutrophils % Seg Neuts % (Manual) Lymphocytes % (Manual) Monocytes % (Manual) Nucleated RBC % Seg Neutrophils # Seg Neutrophils # Man Lymphocytes # (Manual) Monocytes # (Manual) PT INR APTT Fibrinogen D-Dimer ABG pH 7.458 H POC ABG pCO2 POC ABG pO2 ABG pO2 74.3 L ABG HCO3 27.5 H ABG Base Excess 3.4 H ABG Hemoglobin 10.0 L ABG Oxyhemoglobin ABG Sodium ABG Potassium ABG Chloride ABG Glucose VBG pH Oxyhemoglobin 94.9 L Carboxyhemoglobin Sodium Potassium Chloride Carbon Dioxide BUN 19 H Creatinine 1.8 H Glucose POC Glucose Random Insulin C-Peptide Lactic Acid Calcium 6.8 L Ionized Calcium 3.9 L Phosphorus Magnesium AST 225 H ALT 85 H Alkaline Phosphatase Lactate Dehydrogenase NT-Pro-B Natriuret Pep Total Protein 4.5 L Albumin 2.7 L Arterial Blood Glucose Arterial Blood Ionized Calcium Urine WBC (Auto) Vancomycin Trough Phenytoin Crossmatch 10/05/20 10/05/20 10/05/20 10:10 15:00 19:40 WBC RBC Hgb Hct MCV MCH MCHC RDW Plt Count Lymph % (Auto) [place] % (Auto) Lymph # (Auto) [place] # (Auto) Baso # (Auto) Seg Neutrophils % Seg Neuts % (Manual) Lymphocytes % (Manual) Monocytes % (Manual) Nucleated RBC % Seg Neutrophils # Seg Neutrophils # Man Lymphocytes # (Manual) Monocytes # (Manual) PT INR APTT Fibrinogen D-Dimer ABG pH POC ABG pCO2 POC ABG pO2 ABG pO2 ABG HCO3 ABG Base Excess ABG Hemoglobin ABG Oxyhemoglobin ABG Sodium ABG Potassium ABG Chloride ABG Glucose VBG pH Oxyhemoglobin Carboxyhemoglobin Sodium Potassium 3.5 L Chloride Carbon Dioxide 31 H 32 H BUN 19 H 19 H Creatinine 1.8 H 1.8 H Glucose POC Glucose Random Insulin C-Peptide Lactic Acid Calcium 7.0 L 7.2 L Ionized Calcium Phosphorus Magnesium 2.90 H AST ALT Alkaline Phosphatase Lactate Dehydrogenase NT-Pro-B Natriuret Pep Total Protein Albumin Arterial Blood Glucose Arterial Blood Ionized Calcium Urine WBC (Auto) Vancomycin Trough Phenytoin Crossmatch 10/06/20 10/06/20 10/06/20 01:05 03:12 04:00 WBC 17.1 H RBC 3.47 L Hgb Hct MCV MCH MCHC RDW 17.4 H Plt Count 82 L Lymph % (Auto) 8.3 L [place] % (Auto) Lymph # (Auto) [place] # (Auto) 1.1 H Baso # (Auto) Seg Neutrophils % 83.8 H Seg Neuts % (Manual) Lymphocytes % (Manual) Monocytes % (Manual) Nucleated RBC % Seg Neutrophils # 14.3 H Seg Neutrophils # Man Lymphocytes # (Manual) Monocytes # (Manual) PT INR APTT Fibrinogen D-Dimer ABG pH 7.474 H POC ABG pCO2 POC ABG pO2 129.5 H ABG pO2 ABG HCO3 ABG Base Excess ABG Hemoglobin 11.4 L ABG Oxyhemoglobin ABG Sodium 131.8 L ABG Potassium ABG Chloride ABG Glucose 103 H VBG pH Oxyhemoglobin Carboxyhemoglobin 0.3 L Sodium Potassium Chloride Carbon Dioxide BUN Creatinine Glucose POC Glucose Random Insulin C-Peptide Lactic Acid Calcium Ionized Calcium Phosphorus Magnesium 3.70 H AST ALT Alkaline Phosphatase Lactate Dehydrogenase NT-Pro-B Natriuret Pep Total Protein Albumin Arterial Blood Glucose 103 H Arterial Blood Ionized Calcium 4.2 L Urine WBC (Auto) Vancomycin Trough Phenytoin Crossmatch 10/06/20 10/06/20 10/06/20 04:00 05:31 08:12 WBC RBC Hgb Hct MCV MCH MCHC RDW Plt Count Lymph % (Auto) [place] % (Auto) Lymph # (Auto) [place] # (Auto) Baso # (Auto) Seg Neutrophils % Seg Neuts % (Manual) Lymphocytes % (Manual) Monocytes % (Manual) Nucleated RBC % Seg Neutrophils # Seg Neutrophils # Man Lymphocytes # (Manual) Monocytes # (Manual) PT INR APTT Fibrinogen D-Dimer ABG pH POC ABG pCO2 POC ABG pO2 ABG pO2 ABG HCO3 ABG Base Excess ABG Hemoglobin ABG Oxyhemoglobin ABG Sodium ABG Potassium ABG Chloride ABG Glucose VBG pH Oxyhemoglobin Carboxyhemoglobin Sodium Potassium 3.5 L Chloride Carbon Dioxide BUN 19 H Creatinine 1.8 H Glucose 102 H POC Glucose 116 H Random Insulin C-Peptide Lactic Acid Calcium 7.2 L Ionized Calcium Phosphorus Magnesium 5.40 H AST 307 H ALT 137 H Alkaline Phosphatase Lactate Dehydrogenase NT-Pro-B Natriuret Pep Total Protein 4.5 L Albumin 2.6 L Arterial Blood Glucose Arterial Blood Ionized Calcium Urine WBC (Auto) Vancomycin Trough Phenytoin Crossmatch 10/06/20 10/06/20 10/06/20 11:00 11:50 20:13 WBC RBC Hgb Hct MCV MCH MCHC RDW Plt Count Lymph % (Auto) [place] % (Auto) Lymph # (Auto) [place] # (Auto) Baso # (Auto) Seg Neutrophils % Seg Neuts % (Manual) Lymphocytes % (Manual) Monocytes % (Manual) Nucleated RBC % Seg Neutrophils # Seg Neutrophils # Man Lymphocytes # (Manual) Monocytes # (Manual) PT INR APTT Fibrinogen D-Dimer ABG pH POC ABG pCO2 POC ABG pO2 ABG pO2 ABG HCO3 ABG Base Excess ABG Hemoglobin ABG Oxyhemoglobin ABG Sodium ABG Potassium ABG Chloride ABG Glucose VBG pH Oxyhemoglobin Carboxyhemoglobin Sodium Potassium Chloride Carbon Dioxide BUN Creatinine Glucose POC Glucose 106 H Random Insulin C-Peptide Lactic Acid Calcium Ionized Calcium Phosphorus Magnesium 6.50 H 6.20 H AST ALT Alkaline Phosphatase Lactate Dehydrogenase NT-Pro-B Natriuret Pep Total Protein Albumin Arterial Blood Glucose Arterial Blood Ionized Calcium Urine WBC (Auto) Vancomycin Trough Phenytoin Crossmatch 10/06/20 10/06/20 10/06/20 20:17 22:29 23:57 WBC RBC Hgb Hct MCV MCH MCHC RDW Plt Count Lymph % (Auto) [place] % (Auto) Lymph # (Auto) [place] # (Auto) Baso # (Auto) Seg Neutrophils % Seg Neuts % (Manual) Lymphocytes % (Manual) Monocytes % (Manual) Nucleated RBC % Seg Neutrophils # Seg Neutrophils # Man Lymphocytes # (Manual) Monocytes # (Manual) PT INR APTT Fibrinogen D-Dimer ABG pH POC ABG pCO2 POC ABG pO2 ABG pO2 ABG HCO3 ABG Base Excess ABG Hemoglobin ABG Oxyhemoglobin ABG Sodium ABG Potassium ABG Chloride ABG Glucose VBG pH Oxyhemoglobin Carboxyhemoglobin Sodium Potassium Chloride Carbon Dioxide BUN Creatinine Glucose POC Glucose 112 H 126 H 133 H Random Insulin C-Peptide Lactic Acid Calcium Ionized Calcium Phosphorus Magnesium AST ALT Alkaline Phosphatase Lactate Dehydrogenase NT-Pro-B Natriuret Pep Total Protein Albumin Arterial Blood Glucose Arterial Blood Ionized Calcium Urine WBC (Auto) Vancomycin Trough Phenytoin Crossmatch 10/07/20 10/07/20 10/07/20 00:35 02:22 03:16 WBC RBC Hgb Hct MCV MCH MCHC RDW Plt Count Lymph % (Auto) [place] % (Auto) Lymph # (Auto) [place] # (Auto) Baso # (Auto) Seg Neutrophils % Seg Neuts % (Manual) Lymphocytes % (Manual) Monocytes % (Manual) Nucleated RBC % Seg Neutrophils # Seg Neutrophils # Man Lymphocytes # (Manual) Monocytes # (Manual) PT INR APTT Fibrinogen D-Dimer ABG pH POC ABG pCO2 POC ABG pO2 ABG pO2 ABG HCO3 ABG Base Excess ABG Hemoglobin 11.6 L ABG Oxyhemoglobin ABG Sodium ABG Potassium ABG Chloride ABG Glucose 156 H VBG pH Oxyhemoglobin Carboxyhemoglobin 0.3 L Sodium Potassium Chloride Carbon Dioxide BUN Creatinine Glucose POC Glucose 124 H Random Insulin C-Peptide Lactic Acid Calcium Ionized Calcium Phosphorus Magnesium 5.90 H AST ALT Alkaline Phosphatase Lactate Dehydrogenase NT-Pro-B Natriuret Pep Total Protein Albumin Arterial Blood Glucose 156 H Arterial Blood Ionized Calcium 4.2 L Urine WBC (Auto) Vancomycin Trough Phenytoin Crossmatch 10/07/20 10/07/20 10/07/20 04:06 05:45 07:05 WBC 19.2 H RBC 3.57 L Hgb Hct MCV MCH MCHC 35 H RDW 17.1 H Plt Count 129 L Lymph % (Auto) [place] % (Auto) Lymph # (Auto) [place] # (Auto) Baso # (Auto) Seg Neutrophils % Seg Neuts % (Manual) 94.0 H Lymphocytes % (Manual) 6.0 L Monocytes % (Manual) Nucleated RBC % Seg Neutrophils # Seg Neutrophils # Man 18.0 H Lymphocytes # (Manual) Monocytes # (Manual) PT INR APTT Fibrinogen D-Dimer ABG pH POC ABG pCO2 POC ABG pO2 ABG pO2 ABG HCO3 ABG Base Excess ABG Hemoglobin ABG Oxyhemoglobin ABG Sodium ABG Potassium ABG Chloride ABG Glucose VBG pH Oxyhemoglobin Carboxyhemoglobin Sodium Potassium Chloride Carbon Dioxide BUN Creatinine Glucose POC Glucose 135 H 149 H Random Insulin C-Peptide Lactic Acid Calcium Ionized Calcium Phosphorus Magnesium AST ALT Alkaline Phosphatase Lactate Dehydrogenase NT-Pro-B Natriuret Pep Total Protein Albumin Arterial Blood Glucose Arterial Blood Ionized Calcium Urine WBC (Auto) Vancomycin Trough Phenytoin Crossmatch 10/07/20 10/07/20 10/07/20 07:05 07:05 12:21 WBC RBC Hgb Hct MCV MCH MCHC RDW Plt Count Lymph % (Auto) [place] % (Auto) Lymph # (Auto) [place] # (Auto) Baso # (Auto) Seg Neutrophils % Seg Neuts % (Manual) Lymphocytes % (Manual) Monocytes % (Manual) Nucleated RBC % Seg Neutrophils # Seg Neutrophils # Man Lymphocytes # (Manual) Monocytes # (Manual) PT INR APTT Fibrinogen D-Dimer ABG pH POC ABG pCO2 POC ABG pO2 ABG pO2 ABG HCO3 ABG Base Excess ABG Hemoglobin ABG Oxyhemoglobin ABG Sodium ABG Potassium ABG Chloride ABG Glucose VBG pH Oxyhemoglobin Carboxyhemoglobin Sodium Potassium Chloride Carbon Dioxide BUN 21 H Creatinine 1.7 H Glucose 171 H POC Glucose 124 H Random Insulin C-Peptide Lactic Acid Calcium 7.4 L Ionized Calcium Phosphorus Magnesium 6.10 H AST 245 H ALT 147 H Alkaline Phosphatase Lactate Dehydrogenase NT-Pro-B Natriuret Pep Total Protein 5.3 L Albumin 2.8 L Arterial Blood Glucose Arterial Blood Ionized Calcium Urine WBC (Auto) Vancomycin Trough Phenytoin Crossmatch 10/07/20 10/07/20 10/07/20 19:52 21:00 21:50 WBC RBC Hgb Hct MCV MCH MCHC RDW Plt Count Lymph % (Auto) [place] % (Auto) Lymph # (Auto) [place] # (Auto) Baso # (Auto) Seg Neutrophils % Seg Neuts % (Manual) Lymphocytes % (Manual) Monocytes % (Manual) Nucleated RBC % Seg Neutrophils # Seg Neutrophils # Man Lymphocytes # (Manual) Monocytes # (Manual) PT INR APTT Fibrinogen D-Dimer ABG pH POC ABG pCO2 POC ABG pO2 ABG pO2 ABG HCO3 ABG Base Excess ABG Hemoglobin ABG Oxyhemoglobin ABG Sodium ABG Potassium ABG Chloride ABG Glucose VBG pH Oxyhemoglobin Carboxyhemoglobin Sodium Potassium Chloride Carbon Dioxide BUN Creatinine Glucose POC Glucose 193 H 138 H Random Insulin C-Peptide Lactic Acid Calcium Ionized Calcium 4.4 L Phosphorus Magnesium AST ALT Alkaline Phosphatase Lactate Dehydrogenase NT-Pro-B Natriuret Pep Total Protein Albumin Arterial Blood Glucose Arterial Blood Ionized Calcium Urine WBC (Auto) Vancomycin Trough Phenytoin Crossmatch 10/07/20 10/08/20 10/08/20 23:41 04:20 05:30 WBC RBC Hgb Hct MCV MCH MCHC RDW Plt Count Lymph % (Auto) [place] % (Auto) Lymph # (Auto) [place] # (Auto) Baso # (Auto) Seg Neutrophils % Seg Neuts % (Manual) Lymphocytes % (Manual) Monocytes % (Manual) Nucleated RBC % Seg Neutrophils # Seg Neutrophils # Man Lymphocytes # (Manual) Monocytes # (Manual) PT INR APTT Fibrinogen D-Dimer ABG pH 7.467 H POC ABG pCO2 POC ABG pO2 189.8 H ABG pO2 ABG HCO3 ABG Base Excess ABG Hemoglobin 10.8 L ABG Oxyhemoglobin ABG Sodium ABG Potassium ABG Chloride ABG Glucose 133 H VBG pH Oxyhemoglobin Carboxyhemoglobin Sodium Potassium Chloride Carbon Dioxide BUN Creatinine Glucose POC Glucose 118 H 114 H Random Insulin C-Peptide Lactic Acid Calcium Ionized Calcium Phosphorus Magnesium AST ALT Alkaline Phosphatase Lactate Dehydrogenase NT-Pro-B Natriuret Pep Total Protein Albumin Arterial Blood Glucose 133 H Arterial Blood Ionized Calcium 4.2 L Urine WBC (Auto) Vancomycin Trough Phenytoin Crossmatch 10/08/20 10/08/20 10/08/20 05:43 06:42 06:42 WBC 23.6 H RBC 3.54 L Hgb Hct MCV MCH MCHC RDW 17.8 H Plt Count Lymph % (Auto) [place] % (Auto) Lymph # (Auto) [place] # (Auto) Baso # (Auto) Seg Neutrophils % Seg Neuts % (Manual) 93.0 H Lymphocytes % (Manual) 3.0 L Monocytes % (Manual) Nucleated RBC % 1.0 H Seg Neutrophils # Seg Neutrophils # Man 21.9 H Lymphocytes # (Manual) 0.7 L Monocytes # (Manual) 0.9 H PT INR APTT Fibrinogen D-Dimer ABG pH POC ABG pCO2 POC ABG pO2 ABG pO2 ABG HCO3 ABG Base Excess ABG Hemoglobin ABG Oxyhemoglobin ABG Sodium ABG Potassium ABG Chloride ABG Glucose VBG pH Oxyhemoglobin Carboxyhemoglobin Sodium Potassium Chloride Carbon Dioxide BUN 28 H Creatinine 1.6 H Glucose 141 H POC Glucose 126 H Random Insulin C-Peptide Lactic Acid Calcium 7.6 L Ionized Calcium Phosphorus Magnesium AST 162 H ALT 103 H Alkaline Phosphatase Lactate Dehydrogenase NT-Pro-B Natriuret Pep Total Protein 5.4 L Albumin 2.7 L Arterial Blood Glucose Arterial Blood Ionized Calcium Urine WBC (Auto) Vancomycin Trough Phenytoin Crossmatch 10/08/20 10/08/20 10/08/20 11:20 16:05 20:14 WBC RBC Hgb Hct MCV MCH MCHC RDW Plt Count Lymph % (Auto) [place] % (Auto) Lymph # (Auto) [place] # (Auto) Baso # (Auto) Seg Neutrophils % Seg Neuts % (Manual) Lymphocytes % (Manual) Monocytes % (Manual) Nucleated RBC % Seg Neutrophils # Seg Neutrophils # Man Lymphocytes # (Manual) Monocytes # (Manual) PT INR APTT Fibrinogen D-Dimer ABG pH POC ABG pCO2 POC ABG pO2 ABG pO2 ABG HCO3 ABG Base Excess ABG Hemoglobin ABG Oxyhemoglobin ABG Sodium ABG Potassium ABG Chloride ABG Glucose VBG pH Oxyhemoglobin Carboxyhemoglobin Sodium Potassium Chloride Carbon Dioxide BUN Creatinine Glucose POC Glucose 127 H 172 H 147 H Random Insulin C-Peptide Lactic Acid Calcium Ionized Calcium Phosphorus Magnesium AST ALT Alkaline Phosphatase Lactate Dehydrogenase NT-Pro-B Natriuret Pep Total Protein Albumin Arterial Blood Glucose Arterial Blood Ionized Calcium Urine WBC (Auto) Vancomycin Trough Phenytoin Crossmatch 10/08/20 10/08/20 10/09/20 21:27 23:24 02:10 WBC RBC Hgb Hct MCV MCH MCHC RDW Plt Count Lymph % (Auto) [place] % (Auto) Lymph # (Auto) [place] # (Auto) Baso # (Auto) Seg Neutrophils % Seg Neuts % (Manual) Lymphocytes % (Manual) Monocytes % (Manual) Nucleated RBC % Seg Neutrophils # Seg Neutrophils # Man Lymphocytes # (Manual) Monocytes # (Manual) PT INR APTT Fibrinogen D-Dimer ABG pH POC ABG pCO2 POC ABG pO2 ABG pO2 ABG HCO3 ABG Base Excess ABG Hemoglobin ABG Oxyhemoglobin ABG Sodium ABG Potassium ABG Chloride ABG Glucose VBG pH Oxyhemoglobin Carboxyhemoglobin Sodium Potassium Chloride Carbon Dioxide BUN Creatinine Glucose POC Glucose 140 H 135 H 111 H Random Insulin C-Peptide Lactic Acid Calcium Ionized Calcium Phosphorus Magnesium AST ALT Alkaline Phosphatase Lactate Dehydrogenase NT-Pro-B Natriuret Pep Total Protein Albumin Arterial Blood Glucose Arterial Blood Ionized Calcium Urine WBC (Auto) Vancomycin Trough Phenytoin Crossmatch 10/09/20 10/09/20 10/09/20 03:44 04:39 05:46 WBC 19.7 H RBC 3.51 L Hgb Hct MCV MCH MCHC RDW 17.7 H Plt Count Lymph % (Auto) [place] % (Auto) Lymph # (Auto) [place] # (Auto) Baso # (Auto) Seg Neutrophils % Seg Neuts % (Manual) 86.0 H Lymphocytes % (Manual) 4.0 L Monocytes % (Manual) 9.0 H Nucleated RBC % Seg Neutrophils # Seg Neutrophils # Man 16.9 H Lymphocytes # (Manual) 0.8 L Monocytes # (Manual) 1.8 H PT INR APTT Fibrinogen D-Dimer ABG pH 7.513 H POC ABG pCO2 POC ABG pO2 33.6 L ABG pO2 ABG HCO3 ABG Base Excess ABG Hemoglobin 11.1 L ABG Oxyhemoglobin 70.2 L ABG Sodium ABG Potassium 3.2 L ABG Chloride 108.0 H ABG Glucose 108 H VBG pH Oxyhemoglobin Carboxyhemoglobin Sodium Potassium Chloride Carbon Dioxide BUN Creatinine Glucose POC Glucose 109 H Random Insulin C-Peptide Lactic Acid Calcium Ionized Calcium Phosphorus Magnesium AST ALT Alkaline Phosphatase Lactate Dehydrogenase NT-Pro-B Natriuret Pep Total Protein Albumin Arterial Blood Glucose 108 H Arterial Blood Ionized Calcium 4.3 L Urine WBC (Auto) Vancomycin Trough Phenytoin Crossmatch 10/09/20 10/10/20 10/10/20 05:46 04:00 04:00 WBC 18.4 H RBC Hgb Hct MCV MCH MCHC RDW 17.5 H Plt Count Lymph % (Auto) 9.8 L [place] % (Auto) 8.8 H Lymph # (Auto) [place] # (Auto) 1.6 H Baso # (Auto) Seg Neutrophils % 80.0 H Seg Neuts % (Manual) Lymphocytes % (Manual) Monocytes % (Manual) Nucleated RBC % Seg Neutrophils # 14.7 H Seg Neutrophils # Man Lymphocytes # (Manual) Monocytes # (Manual) PT INR APTT Fibrinogen D-Dimer ABG pH POC ABG pCO2 POC ABG pO2 ABG pO2 ABG HCO3 ABG Base Excess ABG Hemoglobin ABG Oxyhemoglobin ABG Sodium ABG Potassium ABG Chloride ABG Glucose VBG pH Oxyhemoglobin Carboxyhemoglobin Sodium 146 H Potassium 3.2 L 2.9 L* Chloride 108.9 H 112.6 H Carbon Dioxide BUN 34 H 28 H Creatinine 1.4 H 1.3 H Glucose 109 H 101 H POC Glucose Random Insulin C-Peptide Lactic Acid Calcium 7.6 L 7.8 L Ionized Calcium Phosphorus Magnesium AST 137 H 122 H ALT 99 H 81 H Alkaline Phosphatase Lactate Dehydrogenase NT-Pro-B Natriuret Pep Total Protein 5.1 L 5.2 L Albumin 2.6 L 2.7 L Arterial Blood Glucose Arterial Blood Ionized Calcium Urine WBC (Auto) Vancomycin Trough Phenytoin Crossmatch 10/10/20 10/10/20 10/11/20 04:42 09:50 00:44 WBC RBC Hgb Hct MCV MCH MCHC RDW Plt Count Lymph % (Auto) [place] % (Auto) Lymph # (Auto) [place] # (Auto) Baso # (Auto) Seg Neutrophils % Seg Neuts % (Manual) Lymphocytes % (Manual) Monocytes % (Manual) Nucleated RBC % Seg Neutrophils # Seg Neutrophils # Man Lymphocytes # (Manual) Monocytes # (Manual) PT INR APTT Fibrinogen D-Dimer ABG pH 7.534 H POC ABG pCO2 POC ABG pO2 ABG pO2 95.2 H ABG HCO3 ABG Base Excess ABG Hemoglobin 11.3 L ABG Oxyhemoglobin ABG Sodium ABG Potassium ABG Chloride ABG Glucose VBG pH Oxyhemoglobin Carboxyhemoglobin Sodium Potassium Chloride Carbon Dioxide BUN Creatinine Glucose POC Glucose 109 H 106 H Random Insulin C-Peptide Lactic Acid Calcium Ionized Calcium Phosphorus Magnesium AST ALT Alkaline Phosphatase Lactate Dehydrogenase NT-Pro-B Natriuret Pep Total Protein Albumin Arterial Blood Glucose Arterial Blood Ionized Calcium Urine WBC (Auto) Vancomycin Trough Phenytoin Crossmatch 10/11/20 10/11/20 10/11/20 04:00 04:00 06:08 WBC 27.0 H RBC Hgb Hct MCV MCH MCHC RDW 17.7 H Plt Count Lymph % (Auto) 6.3 L [place] % (Auto) Lymph # (Auto) [place] # (Auto) 1.5 H Baso # (Auto) Seg Neutrophils % 87.1 H Seg Neuts % (Manual) Lymphocytes % (Manual) Monocytes % (Manual) Nucleated RBC % Seg Neutrophils # 23.5 H Seg Neutrophils # Man Lymphocytes # (Manual) Monocytes # (Manual) PT INR APTT Fibrinogen D-Dimer ABG pH POC ABG pCO2 POC ABG pO2 ABG pO2 ABG HCO3 ABG Base Excess ABG Hemoglobin ABG Oxyhemoglobin ABG Sodium ABG Potassium ABG Chloride ABG Glucose VBG pH Oxyhemoglobin Carboxyhemoglobin Sodium Potassium 3.2 L Chloride 110.4 H Carbon Dioxide 19 L BUN 22 H Creatinine Glucose 116 H POC Glucose 107 H Random Insulin C-Peptide Lactic Acid Calcium 7.7 L Ionized Calcium Phosphorus Magnesium 1.60 L AST ALT Alkaline Phosphatase Lactate Dehydrogenase NT-Pro-B Natriuret Pep Total Protein Albumin Arterial Blood Glucose Arterial Blood Ionized Calcium Urine WBC (Auto) Vancomycin Trough Phenytoin Crossmatch 10/11/20 10/11/20 10/12/20 11:41 13:26 03:52 WBC RBC Hgb Hct MCV MCH MCHC RDW Plt Count Lymph % (Auto) [place] % (Auto) Lymph # (Auto) [place] # (Auto) Baso # (Auto) Seg Neutrophils % Seg Neuts % (Manual) Lymphocytes % (Manual) Monocytes % (Manual) Nucleated RBC % Seg Neutrophils # Seg Neutrophils # Man Lymphocytes # (Manual) Monocytes # (Manual) PT INR APTT Fibrinogen D-Dimer ABG pH POC ABG pCO2 POC ABG pO2 ABG pO2 ABG HCO3 ABG Base Excess ABG Hemoglobin ABG Oxyhemoglobin ABG Sodium ABG Potassium ABG Chloride ABG Glucose VBG pH Oxyhemoglobin Carboxyhemoglobin Sodium Potassium Chloride Carbon Dioxide BUN Creatinine Glucose POC Glucose 116 H 114 H Random Insulin C-Peptide Lactic Acid Calcium Ionized Calcium Phosphorus Magnesium AST ALT Alkaline Phosphatase Lactate Dehydrogenase NT-Pro-B Natriuret Pep Total Protein Albumin Arterial Blood Glucose Arterial Blood Ionized Calcium Urine WBC (Auto) 24.0 H Vancomycin Trough Phenytoin Crossmatch 10/12/20 10/12/20 10/12/20 04:24 14:47 21:33 WBC RBC Hgb Hct MCV MCH MCHC RDW Plt Count Lymph % (Auto) [place] % (Auto) Lymph # (Auto) [place] # (Auto) Baso # (Auto) Seg Neutrophils % Seg Neuts % (Manual) Lymphocytes % (Manual) Monocytes % (Manual) Nucleated RBC % Seg Neutrophils # Seg Neutrophils # Man Lymphocytes # (Manual) Monocytes # (Manual) PT INR APTT Fibrinogen D-Dimer ABG pH POC ABG pCO2 POC ABG pO2 ABG pO2 ABG HCO3 ABG Base Excess ABG Hemoglobin ABG Oxyhemoglobin ABG Sodium ABG Potassium ABG Chloride ABG Glucose VBG pH Oxyhemoglobin Carboxyhemoglobin Sodium Potassium Chloride 109.9 H Carbon Dioxide 13 L BUN 18 H Creatinine Glucose 119 H POC Glucose 107 H Random Insulin C-Peptide Lactic Acid Calcium 7.6 L Ionized Calcium Phosphorus Magnesium 1.60 L AST ALT Alkaline Phosphatase Lactate Dehydrogenase NT-Pro-B Natriuret Pep Total Protein Albumin Arterial Blood Glucose Arterial Blood Ionized Calcium Urine WBC (Auto) Vancomycin Trough Phenytoin Crossmatch 10/12/20 10/12/20 10/13/20 Unknown Unknown 07:00 WBC 24.3 H RBC 3.38 L Hgb 9.8 L Hct MCV MCH MCHC RDW 18.7 H Plt Count Lymph % (Auto) [place] % (Auto) Lymph # (Auto) [place] # (Auto) Baso # (Auto) Seg Neutrophils % Seg Neuts % (Manual) 93.5 H Lymphocytes % (Manual) 4.5 L Monocytes % (Manual) Nucleated RBC % Seg Neutrophils # Seg Neutrophils # Man 22.7 H Lymphocytes # (Manual) 1.1 L Monocytes # (Manual) PT INR APTT Fibrinogen D-Dimer ABG pH POC ABG pCO2 POC ABG pO2 ABG pO2 ABG HCO3 ABG Base Excess ABG Hemoglobin ABG Oxyhemoglobin ABG Sodium ABG Potassium ABG Chloride ABG Glucose VBG pH Oxyhemoglobin Carboxyhemoglobin Sodium 135 L D Potassium 3.1 L Chloride Carbon Dioxide 17 L BUN Creatinine Glucose 510 H* POC Glucose Random Insulin C-Peptide Lactic Acid Calcium 7.2 L Ionized Calcium Phosphorus Magnesium AST ALT Alkaline Phosphatase Lactate Dehydrogenase NT-Pro-B Natriuret Pep Total Protein Albumin Arterial Blood Glucose Arterial Blood Ionized Calcium Urine WBC (Auto) Vancomycin Trough Phenytoin 5.7 L Crossmatch 10/13/20 10/13/20 10/13/20 07:00 07:00 07:18 WBC 23.6 H RBC 3.26 L Hgb 9.4 L Hct 28.7 L MCV MCH MCHC RDW 18.3 H Plt Count Lymph % (Auto) [place] % (Auto) Lymph # (Auto) [place] # (Auto) Baso # (Auto) Seg Neutrophils % Seg Neuts % (Manual) Lymphocytes % (Manual) Monocytes % (Manual) Nucleated RBC % Seg Neutrophils # Seg Neutrophils # Man Lymphocytes # (Manual) Monocytes # (Manual) PT INR APTT Fibrinogen D-Dimer ABG pH 7.473 H POC ABG pCO2 20.7 L POC ABG pO2 137.9 H ABG pO2 ABG HCO3 ABG Base Excess ABG Hemoglobin 11.2 L ABG Oxyhemoglobin 98.3 H ABG Sodium 135.9 L ABG Potassium ABG Chloride 111.0 H ABG Glucose 109 H VBG pH Oxyhemoglobin Carboxyhemoglobin 0.3 L Sodium 135 L Potassium 3.5 L Chloride 109.1 H Carbon Dioxide 18 L BUN Creatinine Glucose POC Glucose Random Insulin C-Peptide Lactic Acid Calcium 7.3 L Ionized Calcium Phosphorus Magnesium 1.60 L AST ALT Alkaline Phosphatase Lactate Dehydrogenase NT-Pro-B Natriuret Pep Total Protein Albumin Arterial Blood Glucose 109 H Arterial Blood Ionized Calcium Urine WBC (Auto) Vancomycin Trough Phenytoin Crossmatch 10/14/20 10/14/20 10/15/20 04:00 04:00 05:50 WBC 28.6 H 23.2 H RBC 3.61 L 3.43 L Hgb 9.9 L Hct 30.0 L MCV MCH MCHC RDW 18.3 H 18.2 H Plt Count Lymph % (Auto) [place] % (Auto) Lymph # (Auto) [place] # (Auto) Baso # (Auto) Seg Neutrophils % Seg Neuts % (Manual) 88.0 H 90.0 H Lymphocytes % (Manual) 5.0 L 4.0 L Monocytes % (Manual) Nucleated RBC % Seg Neutrophils # Seg Neutrophils # Man 25.2 H 20.9 H Lymphocytes # (Manual) 0.9 L Monocytes # (Manual) 1.4 H 0.9 H PT INR APTT Fibrinogen D-Dimer ABG pH POC ABG pCO2 POC ABG pO2 ABG pO2 ABG HCO3 ABG Base Excess ABG Hemoglobin ABG Oxyhemoglobin ABG Sodium ABG Potassium ABG Chloride ABG Glucose VBG pH Oxyhemoglobin Carboxyhemoglobin Sodium Potassium Chloride 109.9 H Carbon Dioxide 17 L BUN Creatinine Glucose POC Glucose Random Insulin C-Peptide Lactic Acid Calcium Ionized Calcium Phosphorus Magnesium AST ALT Alkaline Phosphatase Lactate Dehydrogenase NT-Pro-B Natriuret Pep Total Protein Albumin Arterial Blood Glucose Arterial Blood Ionized Calcium Urine WBC (Auto) Vancomycin Trough Phenytoin Crossmatch 10/15/20 10/16/20 10/17/20 05:50 11:57 04:57 WBC 15.2 H RBC 3.43 L Hgb Hct MCV MCH MCHC RDW 18.1 H Plt Count Lymph % (Auto) [place] % (Auto) Lymph # (Auto) [place] # (Auto) Baso # (Auto) Seg Neutrophils % Seg Neuts % (Manual) Lymphocytes % (Manual) Monocytes % (Manual) Nucleated RBC % Seg Neutrophils # Seg Neutrophils # Man Lymphocytes # (Manual) Monocytes # (Manual) PT INR APTT Fibrinogen D-Dimer ABG pH POC ABG pCO2 POC ABG pO2 ABG pO2 ABG HCO3 ABG Base Excess ABG Hemoglobin ABG Oxyhemoglobin ABG Sodium ABG Potassium ABG Chloride ABG Glucose VBG pH Oxyhemoglobin Carboxyhemoglobin Sodium Potassium Chloride 110.3 H Carbon Dioxide 18 L BUN Creatinine Glucose 105 H POC Glucose 111 H Random Insulin C-Peptide Lactic Acid Calcium 8.3 L Ionized Calcium Phosphorus Magnesium AST ALT Alkaline Phosphatase Lactate Dehydrogenase NT-Pro-B Natriuret Pep Total Protein Albumin Arterial Blood Glucose Arterial Blood Ionized Calcium Urine WBC (Auto) Vancomycin Trough Phenytoin Crossmatch 10/17/20 10/17/20 10/18/20 05:25 21:16 01:31 WBC RBC Hgb Hct MCV MCH MCHC RDW Plt Count Lymph % (Auto) [place] % (Auto) Lymph # (Auto) [place] # (Auto) Baso # (Auto) Seg Neutrophils % Seg Neuts % (Manual) Lymphocytes % (Manual) Monocytes % (Manual) Nucleated RBC % Seg Neutrophils # Seg Neutrophils # Man Lymphocytes # (Manual) Monocytes # (Manual) PT INR APTT Fibrinogen D-Dimer ABG pH POC ABG pCO2 POC ABG pO2 ABG pO2 ABG HCO3 ABG Base Excess ABG Hemoglobin ABG Oxyhemoglobin ABG Sodium ABG Potassium ABG Chloride ABG Glucose VBG pH Oxyhemoglobin Carboxyhemoglobin Sodium Potassium Chloride Carbon Dioxide BUN Creatinine Glucose POC Glucose 107 H 106 H 119 H Random Insulin C-Peptide Lactic Acid Calcium Ionized Calcium Phosphorus Magnesium AST ALT Alkaline Phosphatase Lactate Dehydrogenase NT-Pro-B Natriuret Pep Total Protein Albumin Arterial Blood Glucose Arterial Blood Ionized Calcium Urine WBC (Auto) Vancomycin Trough Phenytoin Crossmatch 10/18/20 10/18/20 10/19/20 05:45 11:23 01:14 WBC RBC Hgb Hct MCV MCH MCHC RDW Plt Count Lymph % (Auto) [place] % (Auto) Lymph # (Auto) [place] # (Auto) Baso # (Auto) Seg Neutrophils % Seg Neuts % (Manual) Lymphocytes % (Manual) Monocytes % (Manual) Nucleated RBC % Seg Neutrophils # Seg Neutrophils # Man Lymphocytes # (Manual) Monocytes # (Manual) PT INR APTT Fibrinogen D-Dimer ABG pH POC ABG pCO2 POC ABG pO2 ABG pO2 ABG HCO3 ABG Base Excess ABG Hemoglobin ABG Oxyhemoglobin ABG Sodium ABG Potassium ABG Chloride ABG Glucose VBG pH Oxyhemoglobin Carboxyhemoglobin Sodium Potassium Chloride Carbon Dioxide BUN Creatinine Glucose POC Glucose 106 H 115 H 108 H Random Insulin C-Peptide Lactic Acid Calcium Ionized Calcium Phosphorus Magnesium AST ALT Alkaline Phosphatase Lactate Dehydrogenase NT-Pro-B Natriuret Pep Total Protein Albumin Arterial Blood Glucose Arterial Blood Ionized Calcium Urine WBC (Auto) Vancomycin Trough Phenytoin Crossmatch 10/19/20 10/20/20 10/20/20 09:57 05:40 07:59 WBC RBC Hgb Hct MCV MCH MCHC RDW Plt Count Lymph % (Auto) [place] % (Auto) Lymph # (Auto) [place] # (Auto) Baso # (Auto) Seg Neutrophils % Seg Neuts % (Manual) Lymphocytes % (Manual) Monocytes % (Manual) Nucleated RBC % Seg Neutrophils # Seg Neutrophils # Man Lymphocytes # (Manual) Monocytes # (Manual) PT INR APTT Fibrinogen D-Dimer ABG pH POC ABG pCO2 POC ABG pO2 ABG pO2 ABG HCO3 ABG Base Excess ABG Hemoglobin ABG Oxyhemoglobin ABG Sodium ABG Potassium ABG Chloride ABG Glucose VBG pH Oxyhemoglobin Carboxyhemoglobin Sodium Potassium Chloride Carbon Dioxide BUN Creatinine Glucose 106 H POC Glucose 122 H 109 H Random Insulin C-Peptide Lactic Acid Calcium Ionized Calcium Phosphorus Magnesium AST ALT Alkaline Phosphatase Lactate Dehydrogenase NT-Pro-B Natriuret Pep Total Protein Albumin Arterial Blood Glucose Arterial Blood Ionized Calcium Urine WBC (Auto) Vancomycin Trough Phenytoin Crossmatch 10/20/20 10/20/20 10/21/20 16:52 16:52 13:54 WBC 18.8 H 17.0 H RBC Hgb Hct MCV MCH MCHC RDW 17.7 H 17.8 H Plt Count 547 H 544 H Lymph % (Auto) 11.2 L [place] % (Auto) 8.1 H Lymph # (Auto) [place] # (Auto) 1.5 H Baso # (Auto) 0.2 H Seg Neutrophils % 78.8 H Seg Neuts % (Manual) Lymphocytes % (Manual) Monocytes % (Manual) Nucleated RBC % Seg Neutrophils # 14.8 H Seg Neutrophils # Man Lymphocytes # (Manual) Monocytes # (Manual) PT INR APTT Fibrinogen D-Dimer ABG pH POC ABG pCO2 POC ABG pO2 ABG pO2 ABG HCO3 ABG Base Excess ABG Hemoglobin ABG Oxyhemoglobin ABG Sodium ABG Potassium ABG Chloride ABG Glucose VBG pH Oxyhemoglobin Carboxyhemoglobin Sodium Potassium Chloride Carbon Dioxide BUN Creatinine Glucose POC Glucose Random Insulin C-Peptide Lactic Acid Calcium Ionized Calcium Phosphorus Magnesium AST ALT Alkaline Phosphatase Lactate Dehydrogenase NT-Pro-B Natriuret Pep Total Protein Albumin Arterial Blood Glucose Arterial Blood Ionized Calcium Urine WBC (Auto) Vancomycin Trough 34.5 H Phenytoin Crossmatch 10/21/20 10/22/20 10/23/20 13:54 07:26 05:34 WBC 18.7 H 13.0 H RBC 3.64 L 3.50 L Hgb Hct 30.0 L MCV MCH MCHC 35 H RDW 17.7 H 17.6 H Plt Count 502 H 503 H Lymph % (Auto) [place] % (Auto) Lymph # (Auto) [place] # (Auto) Baso # (Auto) Seg Neutrophils % Seg Neuts % (Manual) Lymphocytes % (Manual) Monocytes % (Manual) Nucleated RBC % Seg Neutrophils # Seg Neutrophils # Man Lymphocytes # (Manual) Monocytes # (Manual) PT INR APTT Fibrinogen D-Dimer ABG pH POC ABG pCO2 POC ABG pO2 ABG pO2 ABG HCO3 ABG Base Excess ABG Hemoglobin ABG Oxyhemoglobin ABG Sodium ABG Potassium ABG Chloride ABG Glucose VBG pH Oxyhemoglobin Carboxyhemoglobin Sodium 136 L Potassium Chloride Carbon Dioxide BUN Creatinine Glucose 120 H POC Glucose Random Insulin C-Peptide Lactic Acid Calcium Ionized Calcium Phosphorus Magnesium AST ALT Alkaline Phosphatase Lactate Dehydrogenase NT-Pro-B Natriuret Pep Total Protein Albumin Arterial Blood Glucose Arterial Blood Ionized Calcium Urine WBC (Auto) Vancomycin Trough Phenytoin Crossmatch 10/23/20 10/26/20 10/27/20 05:34 10:30 07:53 WBC 13.6 H RBC 3.38 L Hgb 10.0 L Hct 28.8 L MCV MCH MCHC 35 H RDW 17.6 H Plt Count Lymph % (Auto) [place] % (Auto) Lymph # (Auto) [place] # (Auto) Baso # (Auto) Seg Neutrophils % Seg Neuts % (Manual) Lymphocytes % (Manual) Monocytes % (Manual) Nucleated RBC % Seg Neutrophils # Seg Neutrophils # Man Lymphocytes # (Manual) Monocytes # (Manual) PT INR APTT Fibrinogen D-Dimer ABG pH 7.459 H POC ABG pCO2 POC ABG pO2 ABG pO2 112.2 H ABG HCO3 ABG Base Excess ABG Hemoglobin ABG Oxyhemoglobin ABG Sodium ABG Potassium ABG Chloride ABG Glucose VBG pH Oxyhemoglobin Carboxyhemoglobin Sodium 135 L Potassium Chloride Carbon Dioxide BUN Creatinine Glucose 105 H POC Glucose Random Insulin C-Peptide Lactic Acid Calcium Ionized Calcium Phosphorus Magnesium AST ALT Alkaline Phosphatase Lactate Dehydrogenase NT-Pro-B Natriuret Pep Total Protein Albumin Arterial Blood Glucose Arterial Blood Ionized Calcium Urine WBC (Auto) Vancomycin Trough Phenytoin Crossmatch 10/27/20 10/27/20 10/28/20 07:53 11:31 05:19 WBC RBC Hgb Hct MCV MCH MCHC RDW Plt Count Lymph % (Auto) [place] % (Auto) Lymph # (Auto) [place] # (Auto) Baso # (Auto) Seg Neutrophils % Seg Neuts % (Manual) Lymphocytes % (Manual) Monocytes % (Manual) Nucleated RBC % Seg Neutrophils # Seg Neutrophils # Man Lymphocytes # (Manual) Monocytes # (Manual) PT INR APTT Fibrinogen D-Dimer ABG pH POC ABG pCO2 POC ABG pO2 ABG pO2 ABG HCO3 ABG Base Excess ABG Hemoglobin ABG Oxyhemoglobin ABG Sodium ABG Potassium ABG Chloride ABG Glucose VBG pH Oxyhemoglobin Carboxyhemoglobin Sodium Potassium Chloride Carbon Dioxide BUN 20 H Creatinine Glucose 112 H POC Glucose 113 H 112 H Random Insulin C-Peptide Lactic Acid Calcium Ionized Calcium Phosphorus Magnesium AST 83 H ALT Alkaline Phosphatase Lactate Dehydrogenase NT-Pro-B Natriuret Pep Total Protein Albumin 3.8 L Arterial Blood Glucose Arterial Blood Ionized Calcium Urine WBC (Auto) Vancomycin Trough Phenytoin Crossmatch 10/29/20 10/29/20 10/29/20 07:56 07:56 11:37 WBC 13.6 H RBC Hgb Hct MCV MCH MCHC RDW 17.0 H Plt Count Lymph % (Auto) [place] % (Auto) Lymph # (Auto) [place] # (Auto) Baso # (Auto) Seg Neutrophils % Seg Neuts % (Manual) 80.0 H Lymphocytes % (Manual) Monocytes % (Manual) Nucleated RBC % Seg Neutrophils # Seg Neutrophils # Man 10.9 H Lymphocytes # (Manual) Monocytes # (Manual) PT INR APTT Fibrinogen D-Dimer ABG pH POC ABG pCO2 POC ABG pO2 ABG pO2 ABG HCO3 ABG Base Excess ABG Hemoglobin ABG Oxyhemoglobin ABG Sodium ABG Potassium ABG Chloride ABG Glucose VBG pH Oxyhemoglobin Carboxyhemoglobin Sodium Potassium Chloride Carbon Dioxide BUN Creatinine Glucose POC Glucose 108 H Random Insulin C-Peptide Lactic Acid Calcium Ionized Calcium Phosphorus 4.70 H Magnesium AST ALT Alkaline Phosphatase Lactate Dehydrogenase NT-Pro-B Natriuret Pep Total Protein Albumin Arterial Blood Glucose Arterial Blood Ionized Calcium Urine WBC (Auto) Vancomycin Trough Phenytoin Crossmatch 10/29/20 10/30/20 10/30/20 13:32 12:11 17:19 WBC RBC Hgb Hct MCV MCH MCHC RDW Plt Count Lymph % (Auto) [place] % (Auto) Lymph # (Auto) [place] # (Auto) Baso # (Auto) Seg Neutrophils % Seg Neuts % (Manual) Lymphocytes % (Manual) Monocytes % (Manual) Nucleated RBC % Seg Neutrophils # Seg Neutrophils # Man Lymphocytes # (Manual) Monocytes # (Manual) PT INR APTT Fibrinogen D-Dimer ABG pH POC ABG pCO2 POC ABG pO2 ABG pO2 ABG HCO3 ABG Base Excess ABG Hemoglobin ABG Oxyhemoglobin ABG Sodium ABG Potassium ABG Chloride ABG Glucose VBG pH Oxyhemoglobin Carboxyhemoglobin Sodium Potassium Chloride Carbon Dioxide BUN Creatinine Glucose POC Glucose 108 H 106 H 107 H Random Insulin C-Peptide Lactic Acid Calcium Ionized Calcium Phosphorus Magnesium AST ALT Alkaline Phosphatase Lactate Dehydrogenase NT-Pro-B Natriuret Pep Total Protein Albumin Arterial Blood Glucose Arterial Blood Ionized Calcium Urine WBC (Auto) Vancomycin Trough Phenytoin Crossmatch 10/31/20 10/31/20 11/01/20 03:20 05:43 04:55 WBC RBC Hgb Hct MCV MCH MCHC RDW Plt Count Lymph % (Auto) [place] % (Auto) Lymph # (Auto) [place] # (Auto) Baso # (Auto) Seg Neutrophils % Seg Neuts % (Manual) Lymphocytes % (Manual) Monocytes % (Manual) Nucleated RBC % Seg Neutrophils # Seg Neutrophils # Man Lymphocytes # (Manual) Monocytes # (Manual) PT INR APTT Fibrinogen D-Dimer ABG pH POC ABG pCO2 POC ABG pO2 ABG pO2 ABG HCO3 ABG Base Excess ABG Hemoglobin ABG Oxyhemoglobin ABG Sodium ABG Potassium ABG Chloride ABG Glucose VBG pH Oxyhemoglobin Carboxyhemoglobin Sodium Potassium Chloride Carbon Dioxide BUN Creatinine Glucose POC Glucose 108 H 115 H 108 H Random Insulin C-Peptide Lactic Acid Calcium Ionized Calcium Phosphorus Magnesium AST ALT Alkaline Phosphatase Lactate Dehydrogenase NT-Pro-B Natriuret Pep Total Protein Albumin Arterial Blood Glucose Arterial Blood Ionized Calcium Urine WBC (Auto) Vancomycin Trough Phenytoin Crossmatch 11/01/20 11/01/20 11/01/20 05:01 16:47 21:36 WBC RBC Hgb Hct MCV MCH MCHC RDW Plt Count Lymph % (Auto) [place] % (Auto) Lymph # (Auto) [place] # (Auto) Baso # (Auto) Seg Neutrophils % Seg Neuts % (Manual) Lymphocytes % (Manual) Monocytes % (Manual) Nucleated RBC % Seg Neutrophils # Seg Neutrophils # Man Lymphocytes # (Manual) Monocytes # (Manual) PT INR APTT Fibrinogen D-Dimer ABG pH POC ABG pCO2 POC ABG pO2 ABG pO2 ABG HCO3 ABG Base Excess ABG Hemoglobin ABG Oxyhemoglobin ABG Sodium ABG Potassium ABG Chloride ABG Glucose VBG pH Oxyhemoglobin Carboxyhemoglobin Sodium 135 L Potassium Chloride Carbon Dioxide BUN Creatinine Glucose POC Glucose 116 H 112 H Random Insulin C-Peptide Lactic Acid Calcium Ionized Calcium Phosphorus Magnesium AST 93 H ALT Alkaline Phosphatase 132 H Lactate Dehydrogenase NT-Pro-B Natriuret Pep Total Protein Albumin 3.6 L Arterial Blood Glucose Arterial Blood Ionized Calcium Urine WBC (Auto) Vancomycin Trough Phenytoin Crossmatch 11/02/20 11/02/20 11/02/20 17:45 19:19 19:19 WBC RBC Hgb Hct MCV MCH MCHC RDW Plt Count Lymph % (Auto) [place] % (Auto) Lymph # (Auto) [place] # (Auto) Baso # (Auto) Seg Neutrophils % Seg Neuts % (Manual) Lymphocytes % (Manual) Monocytes % (Manual) Nucleated RBC % Seg Neutrophils # Seg Neutrophils # Man Lymphocytes # (Manual) Monocytes # (Manual) PT INR APTT Fibrinogen D-Dimer ABG pH POC ABG pCO2 POC ABG pO2 ABG pO2 ABG HCO3 ABG Base Excess ABG Hemoglobin ABG Oxyhemoglobin ABG Sodium ABG Potassium ABG Chloride ABG Glucose VBG pH Oxyhemoglobin Carboxyhemoglobin Sodium Potassium Chloride Carbon Dioxide BUN Creatinine Glucose POC Glucose 107 H Random Insulin 43.2 H C-Peptide 6.23 H Lactic Acid Calcium Ionized Calcium Phosphorus Magnesium AST ALT Alkaline Phosphatase Lactate Dehydrogenase NT-Pro-B Natriuret Pep Total Protein Albumin Arterial Blood Glucose Arterial Blood Ionized Calcium Urine WBC (Auto) Vancomycin Trough Phenytoin Crossmatch 11/03/20 11/04/20 11/04/20 21:49 05:00 05:00 WBC 13.8 H RBC Hgb Hct MCV MCH MCHC RDW 16.6 H Plt Count Lymph % (Auto) 11.8 L [place] % (Auto) 11.0 H Lymph # (Auto) [place] # (Auto) 1.5 H Baso # (Auto) Seg Neutrophils % 75.1 H Seg Neuts % (Manual) Lymphocytes % (Manual) Monocytes % (Manual) Nucleated RBC % Seg Neutrophils # 10.4 H Seg Neutrophils # Man Lymphocytes # (Manual) Monocytes # (Manual) PT INR APTT Fibrinogen D-Dimer ABG pH POC ABG pCO2 POC ABG pO2 ABG pO2 ABG HCO3 ABG Base Excess ABG Hemoglobin ABG Oxyhemoglobin ABG Sodium ABG Potassium ABG Chloride ABG Glucose VBG pH Oxyhemoglobin Carboxyhemoglobin Sodium Potassium Chloride Carbon Dioxide BUN Creatinine Glucose 112 H POC Glucose 109 H Random Insulin C-Peptide Lactic Acid Calcium Ionized Calcium Phosphorus Magnesium AST 90 H ALT Alkaline Phosphatase Lactate Dehydrogenase NT-Pro-B Natriuret Pep Total Protein Albumin 3.8 L Arterial Blood Glucose Arterial Blood Ionized Calcium Urine WBC (Auto) Vancomycin Trough Phenytoin Crossmatch 11/04/20 11/04/20 11/05/20 06:03 23:47 07:47 WBC RBC Hgb Hct MCV MCH MCHC RDW Plt Count Lymph % (Auto) [place] % (Auto) Lymph # (Auto) [place] # (Auto) Baso # (Auto) Seg Neutrophils % Seg Neuts % (Manual) Lymphocytes % (Manual) Monocytes % (Manual) Nucleated RBC % Seg Neutrophils # Seg Neutrophils # Man Lymphocytes # (Manual) Monocytes # (Manual) PT INR APTT Fibrinogen D-Dimer ABG pH POC ABG pCO2 POC ABG pO2 ABG pO2 ABG HCO3 ABG Base Excess ABG Hemoglobin ABG Oxyhemoglobin ABG Sodium ABG Potassium ABG Chloride ABG Glucose VBG pH Oxyhemoglobin Carboxyhemoglobin Sodium Potassium Chloride Carbon Dioxide BUN Creatinine Glucose POC Glucose 107 H 121 H 111 H Random Insulin C-Peptide Lactic Acid Calcium Ionized Calcium Phosphorus Magnesium AST ALT Alkaline Phosphatase Lactate Dehydrogenase NT-Pro-B Natriuret Pep Total Protein Albumin Arterial Blood Glucose Arterial Blood Ionized Calcium Urine WBC (Auto) Vancomycin Trough Phenytoin Crossmatch 11/05/20 11/06/20 11/06/20 23:24 17:04 23:36 WBC RBC Hgb Hct MCV MCH MCHC RDW Plt Count Lymph % (Auto) [place] % (Auto) Lymph # (Auto) [place] # (Auto) Baso # (Auto) Seg Neutrophils % Seg Neuts % (Manual) Lymphocytes % (Manual) Monocytes % (Manual) Nucleated RBC % Seg Neutrophils # Seg Neutrophils # Man Lymphocytes # (Manual) Monocytes # (Manual) PT INR APTT Fibrinogen D-Dimer ABG pH POC ABG pCO2 POC ABG pO2 ABG pO2 ABG HCO3 ABG Base Excess ABG Hemoglobin ABG Oxyhemoglobin ABG Sodium ABG Potassium ABG Chloride ABG Glucose VBG pH Oxyhemoglobin Carboxyhemoglobin Sodium Potassium Chloride Carbon Dioxide BUN Creatinine Glucose POC Glucose 111 H 112 H 108 H Random Insulin C-Peptide Lactic Acid Calcium Ionized Calcium Phosphorus Magnesium AST ALT Alkaline Phosphatase Lactate Dehydrogenase NT-Pro-B Natriuret Pep Total Protein Albumin Arterial Blood Glucose Arterial Blood Ionized Calcium Urine WBC (Auto) Vancomycin Trough Phenytoin Crossmatch 11/07/20 11/07/20 11/07/20 03:33 04:44 04:44 WBC RBC Hgb Hct MCV MCH MCHC RDW 16.6 H Plt Count Lymph % (Auto) [place] % (Auto) 13.1 H Lymph # (Auto) [place] # (Auto) 1.3 H Baso # (Auto) Seg Neutrophils % Seg Neuts % (Manual) Lymphocytes % (Manual) Monocytes % (Manual) Nucleated RBC % Seg Neutrophils # Seg Neutrophils # Man Lymphocytes # (Manual) Monocytes # (Manual) PT INR APTT Fibrinogen D-Dimer ABG pH POC ABG pCO2 POC ABG pO2 ABG pO2 ABG HCO3 ABG Base Excess ABG Hemoglobin ABG Oxyhemoglobin ABG Sodium ABG Potassium ABG Chloride ABG Glucose VBG pH Oxyhemoglobin Carboxyhemoglobin Sodium Potassium Chloride Carbon Dioxide BUN Creatinine Glucose 103 H POC Glucose 109 H Random Insulin C-Peptide Lactic Acid Calcium Ionized Calcium Phosphorus 5.30 H Magnesium AST ALT Alkaline Phosphatase Lactate Dehydrogenase NT-Pro-B Natriuret Pep Total Protein Albumin Arterial Blood Glucose Arterial Blood Ionized Calcium Urine WBC (Auto) Vancomycin Trough Phenytoin Crossmatch 11/07/20 11/07/20 11/08/20 15:58 23:46 07:30 WBC RBC Hgb Hct MCV MCH MCHC RDW Plt Count Lymph % (Auto) [place] % (Auto) Lymph # (Auto) [place] # (Auto) Baso # (Auto) Seg Neutrophils % Seg Neuts % (Manual) Lymphocytes % (Manual) Monocytes % (Manual) Nucleated RBC % Seg Neutrophils # Seg Neutrophils # Man Lymphocytes # (Manual) Monocytes # (Manual) PT INR APTT Fibrinogen D-Dimer ABG pH POC ABG pCO2 POC ABG pO2 ABG pO2 ABG HCO3 ABG Base Excess ABG Hemoglobin ABG Oxyhemoglobin ABG Sodium ABG Potassium ABG Chloride ABG Glucose VBG pH Oxyhemoglobin Carboxyhemoglobin Sodium Potassium Chloride Carbon Dioxide BUN Creatinine Glucose POC Glucose 108 H 106 H 109 H Random Insulin C-Peptide Lactic Acid Calcium Ionized Calcium Phosphorus Magnesium AST ALT Alkaline Phosphatase Lactate Dehydrogenase NT-Pro-B Natriuret Pep Total Protein Albumin Arterial Blood Glucose Arterial Blood Ionized Calcium Urine WBC (Auto) Vancomycin Trough Phenytoin Crossmatch 11/08/20 11/08/20 11/09/20 11:48 23:32 17:10 WBC RBC Hgb Hct MCV MCH MCHC RDW Plt Count Lymph % (Auto) [place] % (Auto) Lymph # (Auto) [place] # (Auto) Baso # (Auto) Seg Neutrophils % Seg Neuts % (Manual) Lymphocytes % (Manual) Monocytes % (Manual) Nucleated RBC % Seg Neutrophils # Seg Neutrophils # Man Lymphocytes # (Manual) Monocytes # (Manual) PT INR APTT Fibrinogen D-Dimer ABG pH POC ABG pCO2 POC ABG pO2 ABG pO2 ABG HCO3 ABG Base Excess ABG Hemoglobin ABG Oxyhemoglobin ABG Sodium ABG Potassium ABG Chloride ABG Glucose VBG pH Oxyhemoglobin Carboxyhemoglobin Sodium Potassium Chloride Carbon Dioxide BUN Creatinine Glucose POC Glucose 110 H 116 H 112 H Random Insulin C-Peptide Lactic Acid Calcium Ionized Calcium Phosphorus Magnesium AST ALT Alkaline Phosphatase Lactate Dehydrogenase NT-Pro-B Natriuret Pep Total Protein Albumin Arterial Blood Glucose Arterial Blood Ionized Calcium Urine WBC (Auto) Vancomycin Trough Phenytoin Crossmatch 11/09/20 11/10/20 11/10/20 21:42 05:49 07:17 WBC RBC Hgb Hct MCV MCH MCHC RDW Plt Count Lymph % (Auto) [place] % (Auto) Lymph # (Auto) [place] # (Auto) Baso # (Auto) Seg Neutrophils % Seg Neuts % (Manual) Lymphocytes % (Manual) Monocytes % (Manual) Nucleated RBC % Seg Neutrophils # Seg Neutrophils # Man Lymphocytes # (Manual) Monocytes # (Manual) PT INR APTT Fibrinogen D-Dimer ABG pH POC ABG pCO2 POC ABG pO2 ABG pO2 ABG HCO3 ABG Base Excess ABG Hemoglobin ABG Oxyhemoglobin ABG Sodium ABG Potassium ABG Chloride ABG Glucose VBG pH Oxyhemoglobin Carboxyhemoglobin Sodium Potassium Chloride Carbon Dioxide BUN Creatinine Glucose POC Glucose 110 H 108 H 111 H Random Insulin C-Peptide Lactic Acid Calcium Ionized Calcium Phosphorus Magnesium AST ALT Alkaline Phosphatase Lactate Dehydrogenase NT-Pro-B Natriuret Pep Total Protein Albumin Arterial Blood Glucose Arterial Blood Ionized Calcium Urine WBC (Auto) Vancomycin Trough Phenytoin Crossmatch 11/10/20 11/11/20 11/11/20 20:36 04:58 11:56 WBC RBC Hgb Hct MCV MCH MCHC RDW Plt Count Lymph % (Auto) [place] % (Auto) Lymph # (Auto) [place] # (Auto) Baso # (Auto) Seg Neutrophils % Seg Neuts % (Manual) Lymphocytes % (Manual) Monocytes % (Manual) Nucleated RBC % Seg Neutrophils # Seg Neutrophils # Man Lymphocytes # (Manual) Monocytes # (Manual) PT INR APTT Fibrinogen D-Dimer ABG pH POC ABG pCO2 POC ABG pO2 ABG pO2 ABG HCO3 ABG Base Excess ABG Hemoglobin ABG Oxyhemoglobin ABG Sodium ABG Potassium ABG Chloride ABG Glucose VBG pH Oxyhemoglobin Carboxyhemoglobin Sodium Potassium Chloride Carbon Dioxide BUN Creatinine Glucose POC Glucose 111 H 109 H 109 H Random Insulin C-Peptide Lactic Acid Calcium Ionized Calcium Phosphorus Magnesium AST ALT Alkaline Phosphatase Lactate Dehydrogenase NT-Pro-B Natriuret Pep Total Protein Albumin Arterial Blood Glucose Arterial Blood Ionized Calcium Urine WBC (Auto) Vancomycin Trough Phenytoin Crossmatch 11/11/20 11/11/20 11/11/20 13:50 13:50 15:50 WBC RBC Hgb Hct MCV MCH MCHC RDW Plt Count Lymph % (Auto) [place] % (Auto) Lymph # (Auto) [place] # (Auto) Baso # (Auto) Seg Neutrophils % Seg Neuts % (Manual) Lymphocytes % (Manual) Monocytes % (Manual) Nucleated RBC % Seg Neutrophils # Seg Neutrophils # Man Lymphocytes # (Manual) Monocytes # (Manual) PT INR APTT Fibrinogen D-Dimer 1974.47 H ABG pH POC ABG pCO2 POC ABG pO2 ABG pO2 ABG HCO3 ABG Base Excess ABG Hemoglobin ABG Oxyhemoglobin ABG Sodium ABG Potassium ABG Chloride ABG Glucose VBG pH Oxyhemoglobin Carboxyhemoglobin Sodium Potassium Chloride Carbon Dioxide BUN Creatinine Glucose POC Glucose 107 H Random Insulin C-Peptide Lactic Acid Calcium Ionized Calcium Phosphorus Magnesium AST ALT Alkaline Phosphatase Lactate Dehydrogenase NT-Pro-B Natriuret Pep Total Protein Albumin Arterial Blood Glucose Arterial Blood Ionized Calcium Urine WBC (Auto) > 182.0 H Vancomycin Trough Phenytoin Crossmatch 11/11/20 11/12/20 11/12/20 23:17 11:33 22:20 WBC RBC Hgb Hct MCV MCH MCHC RDW Plt Count Lymph % (Auto) [place] % (Auto) Lymph # (Auto) [place] # (Auto) Baso # (Auto) Seg Neutrophils % Seg Neuts % (Manual) Lymphocytes % (Manual) Monocytes % (Manual) Nucleated RBC % Seg Neutrophils # Seg Neutrophils # Man Lymphocytes # (Manual) Monocytes # (Manual) PT INR APTT Fibrinogen D-Dimer ABG pH POC ABG pCO2 POC ABG pO2 ABG pO2 ABG HCO3 ABG Base Excess ABG Hemoglobin ABG Oxyhemoglobin ABG Sodium ABG Potassium ABG Chloride ABG Glucose VBG pH Oxyhemoglobin Carboxyhemoglobin Sodium Potassium Chloride Carbon Dioxide BUN Creatinine Glucose POC Glucose 119 H 111 H 107 H Random Insulin C-Peptide Lactic Acid Calcium Ionized Calcium Phosphorus Magnesium AST ALT Alkaline Phosphatase Lactate Dehydrogenase NT-Pro-B Natriuret Pep Total Protein Albumin Arterial Blood Glucose Arterial Blood Ionized Calcium Urine WBC (Auto) Vancomycin Trough Phenytoin Crossmatch 11/13/20 11/13/20 11/13/20 01:52 07:33 10:05 WBC RBC Hgb Hct MCV MCH MCHC RDW Plt Count Lymph % (Auto) [place] % (Auto) Lymph # (Auto) [place] # (Auto) Baso # (Auto) Seg Neutrophils % Seg Neuts % (Manual) Lymphocytes % (Manual) Monocytes % (Manual) Nucleated RBC % Seg Neutrophils # Seg Neutrophils # Man Lymphocytes # (Manual) Monocytes # (Manual) PT INR APTT Fibrinogen D-Dimer ABG pH POC ABG pCO2 POC ABG pO2 ABG pO2 ABG HCO3 ABG Base Excess ABG Hemoglobin ABG Oxyhemoglobin ABG Sodium ABG Potassium ABG Chloride ABG Glucose VBG pH Oxyhemoglobin Carboxyhemoglobin Sodium Potassium Chloride Carbon Dioxide BUN Creatinine Glucose 114 H POC Glucose 124 H 106 H Random Insulin C-Peptide Lactic Acid Calcium Ionized Calcium Phosphorus 4.60 H Magnesium AST ALT Alkaline Phosphatase Lactate Dehydrogenase NT-Pro-B Natriuret Pep Total Protein Albumin Arterial Blood Glucose Arterial Blood Ionized Calcium Urine WBC (Auto) Vancomycin Trough Phenytoin Crossmatch 11/13/20 11/13/20 11/14/20 11:50 17:20 05:26 WBC RBC Hgb Hct MCV MCH MCHC RDW Plt Count Lymph % (Auto) [place] % (Auto) Lymph # (Auto) [place] # (Auto) Baso # (Auto) Seg Neutrophils % Seg Neuts % (Manual) Lymphocytes % (Manual) Monocytes % (Manual) Nucleated RBC % Seg Neutrophils # Seg Neutrophils # Man Lymphocytes # (Manual) Monocytes # (Manual) PT INR APTT Fibrinogen D-Dimer ABG pH POC ABG pCO2 POC ABG pO2 ABG pO2 ABG HCO3 ABG Base Excess ABG Hemoglobin ABG Oxyhemoglobin ABG Sodium ABG Potassium ABG Chloride ABG Glucose VBG pH Oxyhemoglobin Carboxyhemoglobin Sodium Potassium Chloride Carbon Dioxide BUN Creatinine Glucose POC Glucose 113 H 110 H 110 H Random Insulin C-Peptide Lactic Acid Calcium Ionized Calcium Phosphorus Magnesium AST ALT Alkaline Phosphatase Lactate Dehydrogenase NT-Pro-B Natriuret Pep Total Protein Albumin Arterial Blood Glucose Arterial Blood Ionized Calcium Urine WBC (Auto) Vancomycin Trough Phenytoin Crossmatch
[2020-11-14] MEDS: DEXTROSE 10% IN WATER 1,000 ML IV SCH (11:54)
[2020-11-14] MEDS: cefTRIAXone/NS 1 GM/50 ML 1 GM/50 ML BAG IV SCH (11:54)
[2020-11-14] MEDS: ACETAMINOPHEN 325 MG/10.15 ML ORAL LIQD UNIT DOSE FEEDTUBE PRN (22:32)
[2020-11-15] MEDS: ACETAMINOPHEN 325 MG/10.15 ML ORAL LIQD UNIT DOSE FEEDTUBE PRN ×2 (06:17→20:53)
[2020-11-15] MEDS: HYDROCORTISONE SOD SUCC 100 MG/2 ML VIAL IV SCH ×3 (06:17→21:23)
[2020-11-15] MEDS: hydrALAZINE 25 MG TAB PO SCH ×3 (06:18→21:23)
[2020-11-15] MEDS: ENOXAPARIN 40 MG/0.4 ML INJ SUB-Q SCH (09:48)
[2020-11-15] MEDS: SODIUM BICARBONATE 650 MG TAB PO SCH ×3 (09:48→20:53)
[2020-11-15] MEDS: TOPIRAMATE TAB 25 MG TAB PO SCH ×2 (09:49→21:23)
[2020-11-15] MEDS: FAMOTIDINE 20 MG TAB PO SCH ×2 (09:49→21:23)
[2020-11-15] MEDS: FUROSEMIDE 40 MG TAB PO SCH (09:49)
--- NOTE | 2020-11-15 12:29 | Progress Note ---
Assessment and Plan 30 y/o female with Eclampsia, s/p emergent section with DIC, acute respiratory failure and worsening renal function. 11/15/20: Will go to radiology tomorrow morning. Will likely stop stress dose steroids tomorrow as no real improvement in sugars. COntinue Trach collar. Needs rehab. ProInsulin is back at 38.2 11/14/20: Will speak with radiology again on Monday to ask them to help me with the ordering of the scan. Continue stress dose steroids at least through tomorrow. No real change in blood sugars as of yet. 11/13/20: Attempt a trial of stress dose steroids to see if this improves sugar levels. I have called CT 3x but no answer. Will go down there and see if they are able to do a CT of the abdomen with pancreas protocol to observe for insulinoma. Continue supportive care and airway maintenance therapy. 11/12/20: Continue D10. I have reached out to an endocrine physician from an outside hospital who is willing to help me with the work up and possible help with diagnosis. 11/11/20: Call labs today about proinuslin. Signed letter for family today. Needs endocrine consult but not available here. 11/10/20: If proinsulin not back by tomorrow will call lab. Once I have all info, will see if I can obtain and endocrine consult via phone to discuss case. Continue supplemental oxygen. Needs PT 11/09/20: Follow up Proinsulin levels. No endocrine consult available here, but will do more research to see if we can find out why she remains D10 dependent. Pulm status is stable. Continue T-piece. Not a candidate for floor given D10 requirement. 11/06/20: No new recs. Will continue to check for outside lab results over the weekend. 11/05/20: Awaiting outside labs to work up hypoglycemia. Will add some PRN albuterol nebs to see if this will help to thin out her secretions. 11/04/20: No changes. No new recs. Awaiting send out labs to help figure out hypoglycemia. 11/03/20: Continue D10. Await send out labs. 11/02/20: Called lab today to ask how to order these send out labs. Continue D10 along with feeds for now. Stopped robinol and no further reports of increased thickness of secretions. given D10 requirement, do not feel comfortable with transition to the floor. 11/01/20: Will stop Robinol as this may be making secretions to thick. Huge risk for mucous plugging given mental state. Continue D10 and waiting on labs from yesterday. LFT's repeated and AST elevated along with alk phos. Both of these were elevated on admission, then resolved and now are elevated again. In current clinical state, not sure what to make of those numbers. They do not help with trying to figure out hypoglycemia and persistent need for D10. Continue IMCU care. 10/31/20: Will order midline for IV team vs peripheral IV's (multiple). Needs access for d10 as we have not been able to figure out why she is so hypoglyemic. Will measure serum insulin levels and C-peptide levels, as well proinsulin. All of these labs are sendouts so will have to call down to ask how to order as they are not coming up in [facility]. Given her requirement for supplemental IV sugar, not a candidate for floor transfer. 10/30/20: Continue step down monitoring for now. If does well the next 24-36 hours, then will consider floor transfer. Really needs to continue PT with PROM. Will speak with CM about options for here now that critical needs are becoming minimal. 10/29/20: Off vent now for 24 hours. Tolerating T-Piece. Will transition to step down for a few days. If does well there, consider transition to floor. Continue PT. Guarded prognosis. 10/28/20: Daily T-piece trials for as long as tolerated. Attempt to push further daily. OT does not do passive range of motion. Per PT note will do passive range of motion with patient. Guarded prognosis. Hoping to wean off vent and transition to floor. 10/27/20: Continue daily T-piece trials for as long as tolerated. Ok with resting on either PSV or full rate if needed at night but need to strengthen her respiratory muscles. PT/OT if possible. Will transition to step down prior to going to floor to insure stability. 10/26/20: Will obtain ABG today. If good, will attempt on T-piece later. Continue PT/OT. Will speak with CM about possibility of LTACH or nursing facility that can take trached patients. 10/23/20: Daily PSV trials for as long as patient will tolerate. Needs PT/OT consult for passive range of motion. 10/22/20: Will start prolonged PSV trials. Attempt to wean from vent and then transition to floor to see if mental status improves. Continue tube feeds. 10/21/20: Trach and peg placed. No sedation. Restart Lovenox for Upper Ext DVT. Restart feeds when surgery states ok to use PEG. C. Diff treatment per ID. Guarded prognosis. Will be a residential wean. Hopeful to wean off vent at least and then can transfer to floor. 10/20/20: NPO after midnight. DVT study just read from 10/14 on yesterday showing upper ext DVT. Started on Lovenox but need to hold therapy until after surgery. could be source of fevers. No sedation. 10/19/20: Stable BP. Will meet/talk with family at noon over the phone with myself and case management. Need to discuss goals of care and what next steps would be. Patient would need trach and peg and transfer to LTACH if family ok with this. Follow up speciation of GNR's in blood. Has been on Cefepime. Continues therapy for C. Diff. Guarded prognosis. Continue daily PSV trials but not ready for extubation secondary to mental state. 10/18/20: Blood pressure is much better with the addition of meds started on yesterday. Need to have family meeting jesica in regards to goals of care. Continue Daily PSV trials but not ready for extubation. Continue therapy for C. Diff per ID. 10/17/20: CT scan was of no help in regards to fevers. C. Diff is positive and BP now is more uncontrolled despite increasing labetalol. Today will increase to 300 TID. Added TID Hydralazine and added PO lasix given her mild pulmonary htn seen on echo. Spoke with mother over the phone and she requests to come see the patient. Given current circumstances, will allow her to come briefly today and then will speak with her at the bedside. No neurology is available at the time and suspect these will be the majority of her questions. Tolerated PSV briefly yesterday and will do again today but not for extended periods as given her mental state she is not a candidate for extubation. I will also ask the mother about termite control technician care (trach and peg) when she comes today. Overall prognosis is guarded to poor. If oral meds cannot regulate blood pressure, may need Cardene drip. Continue therapy for C. Diff per ID. Subjective Date of service: 11/15/20 Principal diagnosis: Eclampsia/HELLP Syndrome, ADOLPH, DIC; s/p , s/p supracervical hyst Interval history: No acute events. Objective Vital Signs - 12hr 11/15/20 11/15/20 11/15/20 00:30 01:00 01:30 Temperature Pulse Rate 100 H 89 92 H Respiratory 21 19 Rate Blood Pressure 121/72 112/66 103/76 O2 Sat by Pulse 98 99 100 Oximetry O2 Sat by Pulse Oximetry [ Assessment] 11/15/20 11/15/20 11/15/20 02:00 02:30 03:00 Temperature Pulse Rate 80 96 H 85 Respiratory 20 20 21 Rate Blood Pressure 111/72 113/78 116/69 O2 Sat by Pulse 99 98 99 Oximetry O2 Sat by Pulse Oximetry [ Assessment] 11/15/20 11/15/20 11/15/20 03:18 03:30 03:36 Temperature 98.8 F Pulse Rate 97 H Respiratory 20 22 Rate Blood Pressure 122/64 O2 Sat by Pulse 99 99 Oximetry O2 Sat by Pulse Oximetry [ Assessment] 11/15/20 11/15/20 11/15/20 03:43 04:00 04:30 Temperature Pulse Rate 89 86 86 Respiratory 20 19 Rate Blood Pressure 120/72 125/73 O2 Sat by Pulse 98 99 Oximetry O2 Sat by Pulse Oximetry [ Assessment] 11/15/20 11/15/20 11/15/20 05:00 05:30 06:00 Temperature Pulse Rate 96 H 96 H 78 Respiratory 26 H 19 18 Rate Blood Pressure 120/69 122/79 119/69 O2 Sat by Pulse 99 99 99 Oximetry O2 Sat by Pulse Oximetry [ Assessment] 11/15/20 11/15/20 11/15/20 06:17 06:18 06:30 Temperature Pulse Rate 90 89 Respiratory 26 H 13 Rate Blood Pressure 119/69 135/85 O2 Sat by Pulse 95 Oximetry O2 Sat by Pulse Oximetry [ Assessment] 11/15/20 11/15/20 11/15/20 07:00 07:30 07:47 Temperature Pulse Rate 95 H 111 H Respiratory 19 22 Rate Blood Pressure 128/78 124/72 O2 Sat by Pulse 100 100 Oximetry O2 Sat by Pulse 100 Oximetry [ Assessment] 11/15/20 11/15/20 11/15/20 08:00 08:01 08:30 Temperature Pulse Rate 111 H 106 H Respiratory 22 21 Rate Blood Pressure 140/83 133/85 O2 Sat by Pulse 99 100 100 Oximetry O2 Sat by Pulse Oximetry [ Assessment] 11/15/20 11/15/20 11/15/20 09:00 09:30 09:48 Temperature Pulse Rate 106 H 105 H 101 H Respiratory 16 19 Rate Blood Pressure 129/87 121/90 121/90 O2 Sat by Pulse 100 99 Oximetry O2 Sat by Pulse Oximetry [ Assessment] 11/15/20 11/15/20 11/15/20 10:00 10:31 11:00 Temperature Pulse Rate 104 H 102 H 86 Respiratory 15 19 18 Rate Blood Pressure 120/90 120/90 120/73 O2 Sat by Pulse 100 100 100 Oximetry O2 Sat by Pulse Oximetry [ Assessment] 11/15/20 11/15/20 11:30 12:00 Temperature Pulse Rate 90 102 H Respiratory 21 18 Rate Blood Pressure 120/68 119/64 O2 Sat by Pulse 99 99 Oximetry O2 Sat by Pulse Oximetry [ Assessment] Constitutional: comatose, other (s/p trach) Eyes: non-icteric ENT: oropharynx moist Neck: other (large in cirumference) Effort: normal Ascultation: Bilateral: clear, diminished breath sounds, rhonchi, other (coarse BS bilaterally) Percussion: Bilateral: not dull Cardiovascular: regular rate and rhythm, other (no mrg) Gastrointestinal: normoactive bowel sounds, soft Extremities: no cyanosis, pink and warm Neurologic: other (unresponsive, not following commands, not tracking) Psychiatric: other (unable to assess) CBC and BMP: 11/07/20 04:44 11/13/20 10:05 ABG, PT/INR, D-dimer: ABG ABG pH 7.459 pH Units (7.350-7.450) H 10/26/20 10:30 POC ABG pCO2 20.7 mmHg (32.0-48.0) L 10/13/20 07:18 ABG pCO2 32.4 mm Hg 10/26/20 10:30 POC ABG pO2 137.9 mmHg (83-108) H 10/13/20 07:18 ABG pO2 112.2 mm Hg (80.0-90.0) H 10/26/20 10:30 POC ABG HCO3 14.8 10/13/20 07:18 ABG O2 Saturation 98.2 % (95.0-99.0) 10/26/20 10:30 PT/INR, D-dimer PT 13.6 Sec. (12.2-14.9) 10/21/20 13:54 INR 1.06 (0.87-1.13) 10/21/20 13:54 D-Dimer 1974.47 ng/mlDDU (0-234) H 11/11/20 13:50 Abnormal lab findings: Abnormal Labs 10/02/20 10/02/20 10/02/20 12:03 12:18 12:18 WBC 14.9 H RBC Hgb 9.1 L Hct MCV MCH 22 L MCHC 28 L RDW 17.6 H Plt Count 102 L Lymph % (Auto) [place] % (Auto) Lymph # (Auto) [place] # (Auto) Baso # (Auto) Seg Neutrophils % Seg Neuts % (Manual) 36.0 L Lymphocytes % (Manual) 49.0 H Monocytes % (Manual) Nucleated RBC % 6.0 H Seg Neutrophils # Seg Neutrophils # Man Lymphocytes # (Manual) 7.3 H Monocytes # (Manual) PT INR APTT Fibrinogen D-Dimer ABG pH POC ABG pCO2 POC ABG pO2 ABG pO2 ABG HCO3 ABG Base Excess ABG Hemoglobin ABG Oxyhemoglobin ABG Sodium ABG Potassium ABG Chloride ABG Glucose VBG pH Oxyhemoglobin Carboxyhemoglobin Sodium 134 L Potassium Chloride Carbon Dioxide 12 L BUN 6 L Creatinine Glucose 390 H POC Glucose 451 H Random Insulin C-Peptide Lactic Acid Calcium Ionized Calcium Phosphorus Magnesium AST 135 H ALT 85 H Alkaline Phosphatase 172 H Lactate Dehydrogenase 641 H NT-Pro-B Natriuret Pep Total Protein 5.4 L Albumin 2.3 L Arterial Blood Glucose Arterial Blood Ionized Calcium Urine WBC (Auto) Vancomycin Trough Phenytoin Crossmatch 10/02/20 10/02/20 10/02/20 12:50 13:05 13:05 WBC 38.6 H RBC Hgb 8.9 L Hct 29.0 L MCV 73 L MCH 22 L MCHC RDW 17.2 H Plt Count Lymph % (Auto) [place] % (Auto) Lymph # (Auto) [place] # (Auto) Baso # (Auto) Seg Neutrophils % Seg Neuts % (Manual) Lymphocytes % (Manual) Monocytes % (Manual) Nucleated RBC % 2.0 H Seg Neutrophils # Seg Neutrophils # Man 20.1 H Lymphocytes # (Manual) 10.4 H Monocytes # (Manual) 2.3 H PT INR APTT Fibrinogen D-Dimer ABG pH POC ABG pCO2 POC ABG pO2 ABG pO2 ABG HCO3 ABG Base Excess ABG Hemoglobin ABG Oxyhemoglobin ABG Sodium ABG Potassium ABG Chloride ABG Glucose VBG pH Oxyhemoglobin Carboxyhemoglobin Sodium Potassium Chloride Carbon Dioxide BUN Creatinine Glucose POC Glucose Random Insulin C-Peptide Lactic Acid Calcium Ionized Calcium Phosphorus Magnesium AST 184 H ALT 113 H Alkaline Phosphatase Lactate Dehydrogenase 769 H NT-Pro-B Natriuret Pep Total Protein Albumin Arterial Blood Glucose Arterial Blood Ionized Calcium Urine WBC (Auto) Vancomycin Trough Phenytoin Crossmatch See Detail 10/02/20 10/02/20 10/02/20 16:25 16:35 16:35 WBC RBC Hgb Hct MCV MCH MCHC RDW Plt Count Lymph % (Auto) [place] % (Auto) Lymph # (Auto) [place] # (Auto) Baso # (Auto) Seg Neutrophils % Seg Neuts % (Manual) Lymphocytes % (Manual) Monocytes % (Manual) Nucleated RBC % Seg Neutrophils # Seg Neutrophils # Man Lymphocytes # (Manual) Monocytes # (Manual) PT INR APTT Fibrinogen D-Dimer ABG pH 7.031 L* POC ABG pCO2 POC ABG pO2 ABG pO2 116.8 H ABG HCO3 12.7 L ABG Base Excess -16.9 L ABG Hemoglobin 7.8 L ABG Oxyhemoglobin ABG Sodium ABG Potassium ABG Chloride ABG Glucose VBG pH Oxyhemoglobin 94.9 L Carboxyhemoglobin Sodium Potassium Chloride Carbon Dioxide BUN Creatinine Glucose 403 H POC Glucose Random Insulin C-Peptide Lactic Acid 11.40 H* Calcium 6.3 L D Ionized Calcium Phosphorus Magnesium AST 70 H ALT Alkaline Phosphatase Lactate Dehydrogenase NT-Pro-B Natriuret Pep Total Protein 1.9 L D Albumin 1.2 L Arterial Blood Glucose Arterial Blood Ionized Calcium Urine WBC (Auto) Vancomycin Trough Phenytoin Crossmatch 10/02/20 10/02/20 10/02/20 18:18 18:18 22:30 WBC 11.5 H RBC 2.06 L Hgb 5.5 L* D Hct 17.3 L* D MCV MCH 27 L MCHC RDW 19.5 H Plt Count 60 L Lymph % (Auto) [place] % (Auto) Lymph # (Auto) [place] # (Auto) Baso # (Auto) Seg Neutrophils % Seg Neuts % (Manual) Lymphocytes % (Manual) 8.0 L Monocytes % (Manual) 8.0 H Nucleated RBC % 8.0 H Seg Neutrophils # Seg Neutrophils # Man Lymphocytes # (Manual) 0.9 L Monocytes # (Manual) 0.9 H PT 37.1 H INR 3.71 H APTT 135.8 H* Fibrinogen D-Dimer ABG pH 7.067 L* POC ABG pCO2 POC ABG pO2 ABG pO2 183.0 H ABG HCO3 14.1 L ABG Base Excess -15.1 L ABG Hemoglobin 7.7 L ABG Oxyhemoglobin ABG Sodium ABG Potassium ABG Chloride ABG Glucose VBG pH Oxyhemoglobin Carboxyhemoglobin Sodium Potassium Chloride Carbon Dioxide BUN Creatinine Glucose POC Glucose Random Insulin C-Peptide Lactic Acid Calcium Ionized Calcium Phosphorus Magnesium AST ALT Alkaline Phosphatase Lactate Dehydrogenase NT-Pro-B Natriuret Pep Total Protein Albumin Arterial Blood Glucose Arterial Blood Ionized Calcium Urine WBC (Auto) Vancomycin Trough Phenytoin Crossmatch 10/02/20 10/02/20 10/03/20 Unknown Unknown 00:01 WBC RBC Hgb Hct MCV MCH MCHC RDW Plt Count Lymph % (Auto) [place] % (Auto) Lymph # (Auto) [place] # (Auto) Baso # (Auto) Seg Neutrophils % Seg Neuts % (Manual) Lymphocytes % (Manual) Monocytes % (Manual) Nucleated RBC % Seg Neutrophils # Seg Neutrophils # Man Lymphocytes # (Manual) Monocytes # (Manual) PT 61.1 H INR 6.92 H* APTT 158.7 H* Fibrinogen < 60 L* D-Dimer > 57794 H ABG pH POC ABG pCO2 POC ABG pO2 ABG pO2 ABG HCO3 ABG Base Excess ABG Hemoglobin ABG Oxyhemoglobin ABG Sodium ABG Potassium ABG Chloride ABG Glucose VBG pH 6.949 L* Oxyhemoglobin Carboxyhemoglobin Sodium Potassium Chloride Carbon Dioxide BUN Creatinine Glucose POC Glucose 196 H Random Insulin C-Peptide Lactic Acid Calcium Ionized Calcium Phosphorus Magnesium AST ALT Alkaline Phosphatase Lactate Dehydrogenase NT-Pro-B Natriuret Pep Total Protein Albumin Arterial Blood Glucose Arterial Blood Ionized Calcium Urine WBC (Auto) Vancomycin Trough Phenytoin Crossmatch 10/03/20 10/03/20 10/03/20 00:40 00:40 00:40 WBC RBC Hgb Hct MCV MCH MCHC RDW Plt Count Lymph % (Auto) [place] % (Auto) Lymph # (Auto) [place] # (Auto) Baso # (Auto) Seg Neutrophils % Seg Neuts % (Manual) Lymphocytes % (Manual) Monocytes % (Manual) Nucleated RBC % Seg Neutrophils # Seg Neutrophils # Man Lymphocytes # (Manual) Monocytes # (Manual) PT 15.1 H INR 1.21 H APTT Fibrinogen D-Dimer ABG pH POC ABG pCO2 POC ABG pO2 ABG pO2 ABG HCO3 ABG Base Excess ABG Hemoglobin ABG Oxyhemoglobin ABG Sodium ABG Potassium ABG Chloride ABG Glucose VBG pH Oxyhemoglobin Carboxyhemoglobin Sodium 136 L Potassium Chloride Carbon Dioxide BUN Creatinine 1.6 H D Glucose 106 H POC Glucose Random Insulin C-Peptide Lactic Acid 5.60 H* Calcium 6.5 L Ionized Calcium Phosphorus Magnesium AST 232 H ALT 104 H Alkaline Phosphatase Lactate Dehydrogenase NT-Pro-B Natriuret Pep Total Protein 3.9 L D Albumin 2.4 L Arterial Blood Glucose Arterial Blood Ionized Calcium Urine WBC (Auto) Vancomycin Trough Phenytoin Crossmatch 10/03/20 10/03/20 10/03/20 02:08 02:08 02:08 WBC 17.6 H RBC 3.27 L Hgb 9.9 L D Hct 29.9 L D MCV MCH MCHC RDW 16.5 H Plt Count 75 L Lymph % (Auto) [place] % (Auto) Lymph # (Auto) [place] # (Auto) Baso # (Auto) Seg Neutrophils % Seg Neuts % (Manual) 76.0 H Lymphocytes % (Manual) Monocytes % (Manual) Nucleated RBC % 8.0 H Seg Neutrophils # Seg Neutrophils # Man 13.4 H Lymphocytes # (Manual) Monocytes # (Manual) PT INR APTT Fibrinogen D-Dimer ABG pH POC ABG pCO2 POC ABG pO2 ABG pO2 ABG HCO3 ABG Base Excess ABG Hemoglobin ABG Oxyhemoglobin ABG Sodium ABG Potassium ABG Chloride ABG Glucose VBG pH Oxyhemoglobin Carboxyhemoglobin Sodium Potassium Chloride Carbon Dioxide 19 L BUN Creatinine 1.4 H Glucose 306 H POC Glucose Random Insulin C-Peptide Lactic Acid 10.50 H* Calcium 6.4 L Ionized Calcium Phosphorus Magnesium AST ALT Alkaline Phosphatase Lactate Dehydrogenase NT-Pro-B Natriuret Pep Total Protein Albumin Arterial Blood Glucose Arterial Blood Ionized Calcium Urine WBC (Auto) Vancomycin Trough Phenytoin Crossmatch 10/03/20 10/03/20 10/03/20 02:42 03:59 05:31 WBC RBC Hgb Hct MCV MCH MCHC RDW Plt Count Lymph % (Auto) [place] % (Auto) Lymph # (Auto) [place] # (Auto) Baso # (Auto) Seg Neutrophils % Seg Neuts % (Manual) Lymphocytes % (Manual) Monocytes % (Manual) Nucleated RBC % Seg Neutrophils # Seg Neutrophils # Man Lymphocytes # (Manual) Monocytes # (Manual) PT INR APTT Fibrinogen D-Dimer ABG pH 7.144 L POC ABG pCO2 54.4 H POC ABG pO2 ABG pO2 ABG HCO3 ABG Base Excess ABG Hemoglobin 10.0 L ABG Oxyhemoglobin ABG Sodium ABG Potassium ABG Chloride 108.0 H ABG Glucose 306 H VBG pH Oxyhemoglobin Carboxyhemoglobin Sodium Potassium Chloride Carbon Dioxide BUN Creatinine Glucose POC Glucose 209 H Random Insulin C-Peptide Lactic Acid 9.20 H* Calcium Ionized Calcium Phosphorus Magnesium AST ALT Alkaline Phosphatase Lactate Dehydrogenase NT-Pro-B Natriuret Pep Total Protein Albumin Arterial Blood Glucose 306 H Arterial Blood Ionized Calcium 3.7 L Urine WBC (Auto) Vancomycin Trough Phenytoin Crossmatch 10/03/20 10/03/20 10/03/20 09:00 09:00 09:00 WBC 27.4 H RBC 2.84 L Hgb 8.5 L Hct 25.1 L MCV MCH MCHC RDW 16.1 H Plt Count 72 L Lymph % (Auto) [place] % (Auto) Lymph # (Auto) [place] # (Auto) Baso # (Auto) Seg Neutrophils % Seg Neuts % (Manual) Lymphocytes % (Manual) 11.0 L Monocytes % (Manual) Nucleated RBC % 3.0 H Seg Neutrophils # Seg Neutrophils # Man 18.4 H Lymphocytes # (Manual) Monocytes # (Manual) 1.9 H PT INR APTT Fibrinogen D-Dimer ABG pH POC ABG pCO2 POC ABG pO2 ABG pO2 ABG HCO3 ABG Base Excess ABG Hemoglobin ABG Oxyhemoglobin ABG Sodium ABG Potassium ABG Chloride ABG Glucose VBG pH Oxyhemoglobin Carboxyhemoglobin Sodium Potassium Chloride Carbon Dioxide BUN Creatinine 1.7 H Glucose 216 H POC Glucose Random Insulin C-Peptide Lactic Acid 9.20 H* Calcium 6.3 L Ionized Calcium Phosphorus Magnesium AST 331 H ALT 171 H Alkaline Phosphatase Lactate Dehydrogenase NT-Pro-B Natriuret Pep Total Protein 3.7 L Albumin 1.9 L Arterial Blood Glucose Arterial Blood Ionized Calcium Urine WBC (Auto) Vancomycin Trough Phenytoin Crossmatch 10/03/20 10/03/20 10/03/20 11:20 11:46 11:50 WBC 28.7 H RBC 2.67 L Hgb 8.0 L Hct 23.7 L MCV MCH MCHC RDW 16.6 H Plt Count 76 L Lymph % (Auto) [place] % (Auto) Lymph # (Auto) [place] # (Auto) Baso # (Auto) Seg Neutrophils % Seg Neuts % (Manual) Lymphocytes % (Manual) Monocytes % (Manual) Nucleated RBC % Seg Neutrophils # Seg Neutrophils # Man Lymphocytes # (Manual) Monocytes # (Manual) PT INR APTT Fibrinogen D-Dimer ABG pH POC ABG pCO2 POC ABG pO2 ABG pO2 ABG HCO3 ABG Base Excess ABG Hemoglobin ABG Oxyhemoglobin ABG Sodium ABG Potassium ABG Chloride ABG Glucose VBG pH Oxyhemoglobin Carboxyhemoglobin Sodium Potassium Chloride Carbon Dioxide BUN Creatinine Glucose POC Glucose 125 H Random Insulin C-Peptide Lactic Acid 8.00 H* Calcium Ionized Calcium Phosphorus Magnesium AST ALT Alkaline Phosphatase Lactate Dehydrogenase NT-Pro-B Natriuret Pep Total Protein Albumin Arterial Blood Glucose Arterial Blood Ionized Calcium Urine WBC (Auto) Vancomycin Trough Phenytoin Crossmatch 10/03/20 10/04/20 10/04/20 11:50 00:40 00:40 WBC RBC Hgb 6.8 L Hct 19.4 L* MCV MCH MCHC RDW Plt Count 49 L Lymph % (Auto) [place] % (Auto) Lymph # (Auto) [place] # (Auto) Baso # (Auto) Seg Neutrophils % Seg Neuts % (Manual) Lymphocytes % (Manual) Monocytes % (Manual) Nucleated RBC % Seg Neutrophils # Seg Neutrophils # Man Lymphocytes # (Manual) Monocytes # (Manual) PT INR APTT Fibrinogen D-Dimer ABG pH 7.244 L POC ABG pCO2 POC ABG pO2 ABG pO2 ABG HCO3 ABG Base Excess -4.5 L ABG Hemoglobin 7.3 L ABG Oxyhemoglobin ABG Sodium ABG Potassium ABG Chloride ABG Glucose VBG pH Oxyhemoglobin Carboxyhemoglobin Sodium Potassium Chloride Carbon Dioxide BUN Creatinine Glucose POC Glucose Random Insulin C-Peptide Lactic Acid Calcium Ionized Calcium Phosphorus Magnesium AST ALT Alkaline Phosphatase Lactate Dehydrogenase NT-Pro-B Natriuret Pep Total Protein Albumin Arterial Blood Glucose Arterial Blood Ionized Calcium Urine WBC (Auto) Vancomycin Trough Phenytoin Crossmatch 10/04/20 10/04/20 10/04/20 03:53 10:00 10:00 WBC 14.6 H RBC 2.57 L Hgb 7.6 L Hct 22.5 L MCV MCH MCHC RDW 15.8 H Plt Count 38 L Lymph % (Auto) 7.7 L [place] % (Auto) Lymph # (Auto) 1.1 L [place] # (Auto) 0.9 H Baso # (Auto) Seg Neutrophils % 85.6 H Seg Neuts % (Manual) Lymphocytes % (Manual) Monocytes % (Manual) Nucleated RBC % Seg Neutrophils # 12.5 H Seg Neutrophils # Man Lymphocytes # (Manual) Monocytes # (Manual) PT INR APTT Fibrinogen D-Dimer ABG pH POC ABG pCO2 POC ABG pO2 110.6 H ABG pO2 ABG HCO3 ABG Base Excess ABG Hemoglobin 6.7 L ABG Oxyhemoglobin ABG Sodium 132.0 L ABG Potassium ABG Chloride ABG Glucose 111 H VBG pH Oxyhemoglobin Carboxyhemoglobin Sodium 134 L D Potassium Chloride 97.6 L Carbon Dioxide BUN Creatinine 1.7 H Glucose POC Glucose Random Insulin C-Peptide Lactic Acid Calcium 6.3 L Ionized Calcium Phosphorus Magnesium AST 203 H ALT 81 H Alkaline Phosphatase Lactate Dehydrogenase NT-Pro-B Natriuret Pep Total Protein 3.9 L Albumin 2.3 L Arterial Blood Glucose 111 H Arterial Blood Ionized Calcium 3.5 L Urine WBC (Auto) Vancomycin Trough Phenytoin Crossmatch 10/04/20 10/04/20 10/04/20 10:00 10:00 10:14 WBC RBC Hgb Hct MCV MCH MCHC RDW Plt Count Lymph % (Auto) [place] % (Auto) Lymph # (Auto) [place] # (Auto) Baso # (Auto) Seg Neutrophils % Seg Neuts % (Manual) Lymphocytes % (Manual) Monocytes % (Manual) Nucleated RBC % Seg Neutrophils # Seg Neutrophils # Man Lymphocytes # (Manual) Monocytes # (Manual) PT INR APTT Fibrinogen D-Dimer > 36401 H ABG pH POC ABG pCO2 POC ABG pO2 ABG pO2 ABG HCO3 ABG Base Excess ABG Hemoglobin ABG Oxyhemoglobin ABG Sodium ABG Potassium ABG Chloride ABG Glucose VBG pH Oxyhemoglobin Carboxyhemoglobin Sodium Potassium Chloride Carbon Dioxide BUN Creatinine Glucose POC Glucose Random Insulin C-Peptide Lactic Acid 3.90 H* Calcium Ionized Calcium Phosphorus Magnesium AST ALT Alkaline Phosphatase Lactate Dehydrogenase NT-Pro-B Natriuret Pep 2788 H Total Protein Albumin Arterial Blood Glucose Arterial Blood Ionized Calcium Urine WBC (Auto) Vancomycin Trough Phenytoin Crossmatch 10/04/20 10/04/20 10/04/20 14:00 14:00 18:00 WBC 15.7 H RBC 3.17 L Hgb 9.3 L 9.6 L Hct 27.2 L 28.0 L MCV MCH MCHC RDW 16.9 H Plt Count 41 L Lymph % (Auto) 8.6 L [place] % (Auto) Lymph # (Auto) [place] # (Auto) 0.9 H Baso # (Auto) Seg Neutrophils % 85.4 H Seg Neuts % (Manual) Lymphocytes % (Manual) Monocytes % (Manual) Nucleated RBC % Seg Neutrophils # 13.4 H Seg Neutrophils # Man Lymphocytes # (Manual) Monocytes # (Manual) PT INR APTT Fibrinogen D-Dimer ABG pH POC ABG pCO2 POC ABG pO2 ABG pO2 ABG HCO3 ABG Base Excess ABG Hemoglobin ABG Oxyhemoglobin ABG Sodium ABG Potassium ABG Chloride ABG Glucose VBG pH Oxyhemoglobin Carboxyhemoglobin Sodium 133 L Potassium Chloride 96.4 L Carbon Dioxide BUN 18 H Creatinine 1.7 H Glucose POC Glucose Random Insulin C-Peptide Lactic Acid Calcium 6.3 L Ionized Calcium Phosphorus Magnesium AST ALT Alkaline Phosphatase Lactate Dehydrogenase NT-Pro-B Natriuret Pep Total Protein Albumin Arterial Blood Glucose Arterial Blood Ionized Calcium Urine WBC (Auto) Vancomycin Trough Phenytoin Crossmatch 10/04/20 10/04/20 10/05/20 18:00 22:00 05:00 WBC 17.6 H RBC 3.34 L Hgb 9.9 L Hct 29.4 L MCV MCH MCHC RDW 17.1 H Plt Count 56 L Lymph % (Auto) 8.5 L [place] % (Auto) Lymph # (Auto) [place] # (Auto) 1.0 H Baso # (Auto) Seg Neutrophils % 85.1 H Seg Neuts % (Manual) Lymphocytes % (Manual) Monocytes % (Manual) Nucleated RBC % Seg Neutrophils # 15.0 H Seg Neutrophils # Man Lymphocytes # (Manual) Monocytes # (Manual) PT INR APTT Fibrinogen D-Dimer ABG pH POC ABG pCO2 POC ABG pO2 ABG pO2 ABG HCO3 ABG Base Excess ABG Hemoglobin ABG Oxyhemoglobin ABG Sodium ABG Potassium ABG Chloride ABG Glucose VBG pH Oxyhemoglobin Carboxyhemoglobin Sodium 136 L Potassium Chloride Carbon Dioxide BUN 18 H Creatinine 1.7 H Glucose POC Glucose Random Insulin C-Peptide Lactic Acid 2.30 H* Calcium 6.6 L Ionized Calcium Phosphorus Magnesium AST ALT Alkaline Phosphatase Lactate Dehydrogenase NT-Pro-B Natriuret Pep Total Protein Albumin Arterial Blood Glucose Arterial Blood Ionized Calcium Urine WBC (Auto) Vancomycin Trough Phenytoin Crossmatch 10/05/20 10/05/20 10/05/20 05:00 05:00 05:03 WBC RBC Hgb Hct MCV MCH MCHC RDW Plt Count Lymph % (Auto) [place] % (Auto) Lymph # (Auto) [place] # (Auto) Baso # (Auto) Seg Neutrophils % Seg Neuts % (Manual) Lymphocytes % (Manual) Monocytes % (Manual) Nucleated RBC % Seg Neutrophils # Seg Neutrophils # Man Lymphocytes # (Manual) Monocytes # (Manual) PT INR APTT Fibrinogen D-Dimer ABG pH 7.458 H POC ABG pCO2 POC ABG pO2 ABG pO2 74.3 L ABG HCO3 27.5 H ABG Base Excess 3.4 H ABG Hemoglobin 10.0 L ABG Oxyhemoglobin ABG Sodium ABG Potassium ABG Chloride ABG Glucose VBG pH Oxyhemoglobin 94.9 L Carboxyhemoglobin Sodium Potassium Chloride Carbon Dioxide BUN 19 H Creatinine 1.8 H Glucose POC Glucose Random Insulin C-Peptide Lactic Acid Calcium 6.8 L Ionized Calcium 3.9 L Phosphorus Magnesium AST 225 H ALT 85 H Alkaline Phosphatase Lactate Dehydrogenase NT-Pro-B Natriuret Pep Total Protein 4.5 L Albumin 2.7 L Arterial Blood Glucose Arterial Blood Ionized Calcium Urine WBC (Auto) Vancomycin Trough Phenytoin Crossmatch 10/05/20 10/05/20 10/05/20 10:10 15:00 19:40 WBC RBC Hgb Hct MCV MCH MCHC RDW Plt Count Lymph % (Auto) [place] % (Auto) Lymph # (Auto) [place] # (Auto) Baso # (Auto) Seg Neutrophils % Seg Neuts % (Manual) Lymphocytes % (Manual) Monocytes % (Manual) Nucleated RBC % Seg Neutrophils # Seg Neutrophils # Man Lymphocytes # (Manual) Monocytes # (Manual) PT INR APTT Fibrinogen D-Dimer ABG pH POC ABG pCO2 POC ABG pO2 ABG pO2 ABG HCO3 ABG Base Excess ABG Hemoglobin ABG Oxyhemoglobin ABG Sodium ABG Potassium ABG Chloride ABG Glucose VBG pH Oxyhemoglobin Carboxyhemoglobin Sodium Potassium 3.5 L Chloride Carbon Dioxide 31 H 32 H BUN 19 H 19 H Creatinine 1.8 H 1.8 H Glucose POC Glucose Random Insulin C-Peptide Lactic Acid Calcium 7.0 L 7.2 L Ionized Calcium Phosphorus Magnesium 2.90 H AST ALT Alkaline Phosphatase Lactate Dehydrogenase NT-Pro-B Natriuret Pep Total Protein Albumin Arterial Blood Glucose Arterial Blood Ionized Calcium Urine WBC (Auto) Vancomycin Trough Phenytoin Crossmatch 10/06/20 10/06/20 10/06/20 01:05 03:12 04:00 WBC 17.1 H RBC 3.47 L Hgb Hct MCV MCH MCHC RDW 17.4 H Plt Count 82 L Lymph % (Auto) 8.3 L [place] % (Auto) Lymph # (Auto) [place] # (Auto) 1.1 H Baso # (Auto) Seg Neutrophils % 83.8 H Seg Neuts % (Manual) Lymphocytes % (Manual) Monocytes % (Manual) Nucleated RBC % Seg Neutrophils # 14.3 H Seg Neutrophils # Man Lymphocytes # (Manual) Monocytes # (Manual) PT INR APTT Fibrinogen D-Dimer ABG pH 7.474 H POC ABG pCO2 POC ABG pO2 129.5 H ABG pO2 ABG HCO3 ABG Base Excess ABG Hemoglobin 11.4 L ABG Oxyhemoglobin ABG Sodium 131.8 L ABG Potassium ABG Chloride ABG Glucose 103 H VBG pH Oxyhemoglobin Carboxyhemoglobin 0.3 L Sodium Potassium Chloride Carbon Dioxide BUN Creatinine Glucose POC Glucose Random Insulin C-Peptide Lactic Acid Calcium Ionized Calcium Phosphorus Magnesium 3.70 H AST ALT Alkaline Phosphatase Lactate Dehydrogenase NT-Pro-B Natriuret Pep Total Protein Albumin Arterial Blood Glucose 103 H Arterial Blood Ionized Calcium 4.2 L Urine WBC (Auto) Vancomycin Trough Phenytoin Crossmatch 10/06/20 10/06/20 10/06/20 04:00 05:31 08:12 WBC RBC Hgb Hct MCV MCH MCHC RDW Plt Count Lymph % (Auto) [place] % (Auto) Lymph # (Auto) [place] # (Auto) Baso # (Auto) Seg Neutrophils % Seg Neuts % (Manual) Lymphocytes % (Manual) Monocytes % (Manual) Nucleated RBC % Seg Neutrophils # Seg Neutrophils # Man Lymphocytes # (Manual) Monocytes # (Manual) PT INR APTT Fibrinogen D-Dimer ABG pH POC ABG pCO2 POC ABG pO2 ABG pO2 ABG HCO3 ABG Base Excess ABG Hemoglobin ABG Oxyhemoglobin ABG Sodium ABG Potassium ABG Chloride ABG Glucose VBG pH Oxyhemoglobin Carboxyhemoglobin Sodium Potassium 3.5 L Chloride Carbon Dioxide BUN 19 H Creatinine 1.8 H Glucose 102 H POC Glucose 116 H Random Insulin C-Peptide Lactic Acid Calcium 7.2 L Ionized Calcium Phosphorus Magnesium 5.40 H AST 307 H ALT 137 H Alkaline Phosphatase Lactate Dehydrogenase NT-Pro-B Natriuret Pep Total Protein 4.5 L Albumin 2.6 L Arterial Blood Glucose Arterial Blood Ionized Calcium Urine WBC (Auto) Vancomycin Trough Phenytoin Crossmatch 10/06/20 10/06/20 10/06/20 11:00 11:50 20:13 WBC RBC Hgb Hct MCV MCH MCHC RDW Plt Count Lymph % (Auto) [place] % (Auto) Lymph # (Auto) [place] # (Auto) Baso # (Auto) Seg Neutrophils % Seg Neuts % (Manual) Lymphocytes % (Manual) Monocytes % (Manual) Nucleated RBC % Seg Neutrophils # Seg Neutrophils # Man Lymphocytes # (Manual) Monocytes # (Manual) PT INR APTT Fibrinogen D-Dimer ABG pH POC ABG pCO2 POC ABG pO2 ABG pO2 ABG HCO3 ABG Base Excess ABG Hemoglobin ABG Oxyhemoglobin ABG Sodium ABG Potassium ABG Chloride ABG Glucose VBG pH Oxyhemoglobin Carboxyhemoglobin Sodium Potassium Chloride Carbon Dioxide BUN Creatinine Glucose POC Glucose 106 H Random Insulin C-Peptide Lactic Acid Calcium Ionized Calcium Phosphorus Magnesium 6.50 H 6.20 H AST ALT Alkaline Phosphatase Lactate Dehydrogenase NT-Pro-B Natriuret Pep Total Protein Albumin Arterial Blood Glucose Arterial Blood Ionized Calcium Urine WBC (Auto) Vancomycin Trough Phenytoin Crossmatch 10/06/20 10/06/20 10/06/20 20:17 22:29 23:57 WBC RBC Hgb Hct MCV MCH MCHC RDW Plt Count Lymph % (Auto) [place] % (Auto) Lymph # (Auto) [place] # (Auto) Baso # (Auto) Seg Neutrophils % Seg Neuts % (Manual) Lymphocytes % (Manual) Monocytes % (Manual) Nucleated RBC % Seg Neutrophils # Seg Neutrophils # Man Lymphocytes # (Manual) Monocytes # (Manual) PT INR APTT Fibrinogen D-Dimer ABG pH POC ABG pCO2 POC ABG pO2 ABG pO2 ABG HCO3 ABG Base Excess ABG Hemoglobin ABG Oxyhemoglobin ABG Sodium ABG Potassium ABG Chloride ABG Glucose VBG pH Oxyhemoglobin Carboxyhemoglobin Sodium Potassium Chloride Carbon Dioxide BUN Creatinine Glucose POC Glucose 112 H 126 H 133 H Random Insulin C-Peptide Lactic Acid Calcium Ionized Calcium Phosphorus Magnesium AST ALT Alkaline Phosphatase Lactate Dehydrogenase NT-Pro-B Natriuret Pep Total Protein Albumin Arterial Blood Glucose Arterial Blood Ionized Calcium Urine WBC (Auto) Vancomycin Trough Phenytoin Crossmatch 10/07/20 10/07/20 10/07/20 00:35 02:22 03:16 WBC RBC Hgb Hct MCV MCH MCHC RDW Plt Count Lymph % (Auto) [place] % (Auto) Lymph # (Auto) [place] # (Auto) Baso # (Auto) Seg Neutrophils % Seg Neuts % (Manual) Lymphocytes % (Manual) Monocytes % (Manual) Nucleated RBC % Seg Neutrophils # Seg Neutrophils # Man Lymphocytes # (Manual) Monocytes # (Manual) PT INR APTT Fibrinogen D-Dimer ABG pH POC ABG pCO2 POC ABG pO2 ABG pO2 ABG HCO3 ABG Base Excess ABG Hemoglobin 11.6 L ABG Oxyhemoglobin ABG Sodium ABG Potassium ABG Chloride ABG Glucose 156 H VBG pH Oxyhemoglobin Carboxyhemoglobin 0.3 L Sodium Potassium Chloride Carbon Dioxide BUN Creatinine Glucose POC Glucose 124 H Random Insulin C-Peptide Lactic Acid Calcium Ionized Calcium Phosphorus Magnesium 5.90 H AST ALT Alkaline Phosphatase Lactate Dehydrogenase NT-Pro-B Natriuret Pep Total Protein Albumin Arterial Blood Glucose 156 H Arterial Blood Ionized Calcium 4.2 L Urine WBC (Auto) Vancomycin Trough Phenytoin Crossmatch 10/07/20 10/07/20 10/07/20 04:06 05:45 07:05 WBC 19.2 H RBC 3.57 L Hgb Hct MCV MCH MCHC 35 H RDW 17.1 H Plt Count 129 L Lymph % (Auto) [place] % (Auto) Lymph # (Auto) [place] # (Auto) Baso # (Auto) Seg Neutrophils % Seg Neuts % (Manual) 94.0 H Lymphocytes % (Manual) 6.0 L Monocytes % (Manual) Nucleated RBC % Seg Neutrophils # Seg Neutrophils # Man 18.0 H Lymphocytes # (Manual) Monocytes # (Manual) PT INR APTT Fibrinogen D-Dimer ABG pH POC ABG pCO2 POC ABG pO2 ABG pO2 ABG HCO3 ABG Base Excess ABG Hemoglobin ABG Oxyhemoglobin ABG Sodium ABG Potassium ABG Chloride ABG Glucose VBG pH Oxyhemoglobin Carboxyhemoglobin Sodium Potassium Chloride Carbon Dioxide BUN Creatinine Glucose POC Glucose 135 H 149 H Random Insulin C-Peptide Lactic Acid Calcium Ionized Calcium Phosphorus Magnesium AST ALT Alkaline Phosphatase Lactate Dehydrogenase NT-Pro-B Natriuret Pep Total Protein Albumin Arterial Blood Glucose Arterial Blood Ionized Calcium Urine WBC (Auto) Vancomycin Trough Phenytoin Crossmatch 10/07/20 10/07/20 10/07/20 07:05 07:05 12:21 WBC RBC Hgb Hct MCV MCH MCHC RDW Plt Count Lymph % (Auto) [place] % (Auto) Lymph # (Auto) [place] # (Auto) Baso # (Auto) Seg Neutrophils % Seg Neuts % (Manual) Lymphocytes % (Manual) Monocytes % (Manual) Nucleated RBC % Seg Neutrophils # Seg Neutrophils # Man Lymphocytes # (Manual) Monocytes # (Manual) PT INR APTT Fibrinogen D-Dimer ABG pH POC ABG pCO2 POC ABG pO2 ABG pO2 ABG HCO3 ABG Base Excess ABG Hemoglobin ABG Oxyhemoglobin ABG Sodium ABG Potassium ABG Chloride ABG Glucose VBG pH Oxyhemoglobin Carboxyhemoglobin Sodium Potassium Chloride Carbon Dioxide BUN 21 H Creatinine 1.7 H Glucose 171 H POC Glucose 124 H Random Insulin C-Peptide Lactic Acid Calcium 7.4 L Ionized Calcium Phosphorus Magnesium 6.10 H AST 245 H ALT 147 H Alkaline Phosphatase Lactate Dehydrogenase NT-Pro-B Natriuret Pep Total Protein 5.3 L Albumin 2.8 L Arterial Blood Glucose Arterial Blood Ionized Calcium Urine WBC (Auto) Vancomycin Trough Phenytoin Crossmatch 10/07/20 10/07/20 10/07/20 19:52 21:00 21:50 WBC RBC Hgb Hct MCV MCH MCHC RDW Plt Count Lymph % (Auto) [place] % (Auto) Lymph # (Auto) [place] # (Auto) Baso # (Auto) Seg Neutrophils % Seg Neuts % (Manual) Lymphocytes % (Manual) Monocytes % (Manual) Nucleated RBC % Seg Neutrophils # Seg Neutrophils # Man Lymphocytes # (Manual) Monocytes # (Manual) PT INR APTT Fibrinogen D-Dimer ABG pH POC ABG pCO2 POC ABG pO2 ABG pO2 ABG HCO3 ABG Base Excess ABG Hemoglobin ABG Oxyhemoglobin ABG Sodium ABG Potassium ABG Chloride ABG Glucose VBG pH Oxyhemoglobin Carboxyhemoglobin Sodium Potassium Chloride Carbon Dioxide BUN Creatinine Glucose POC Glucose 193 H 138 H Random Insulin C-Peptide Lactic Acid Calcium Ionized Calcium 4.4 L Phosphorus Magnesium AST ALT Alkaline Phosphatase Lactate Dehydrogenase NT-Pro-B Natriuret Pep Total Protein Albumin Arterial Blood Glucose Arterial Blood Ionized Calcium Urine WBC (Auto) Vancomycin Trough Phenytoin Crossmatch 10/07/20 10/08/20 10/08/20 23:41 04:20 05:30 WBC RBC Hgb Hct MCV MCH MCHC RDW Plt Count Lymph % (Auto) [place] % (Auto) Lymph # (Auto) [place] # (Auto) Baso # (Auto) Seg Neutrophils % Seg Neuts % (Manual) Lymphocytes % (Manual) Monocytes % (Manual) Nucleated RBC % Seg Neutrophils # Seg Neutrophils # Man Lymphocytes # (Manual) Monocytes # (Manual) PT INR APTT Fibrinogen D-Dimer ABG pH 7.467 H POC ABG pCO2 POC ABG pO2 189.8 H ABG pO2 ABG HCO3 ABG Base Excess ABG Hemoglobin 10.8 L ABG Oxyhemoglobin ABG Sodium ABG Potassium ABG Chloride ABG Glucose 133 H VBG pH Oxyhemoglobin Carboxyhemoglobin Sodium Potassium Chloride Carbon Dioxide BUN Creatinine Glucose POC Glucose 118 H 114 H Random Insulin C-Peptide Lactic Acid Calcium Ionized Calcium Phosphorus Magnesium AST ALT Alkaline Phosphatase Lactate Dehydrogenase NT-Pro-B Natriuret Pep Total Protein Albumin Arterial Blood Glucose 133 H Arterial Blood Ionized Calcium 4.2 L Urine WBC (Auto) Vancomycin Trough Phenytoin Crossmatch 10/08/20 10/08/20 10/08/20 05:43 06:42 06:42 WBC 23.6 H RBC 3.54 L Hgb Hct MCV MCH MCHC RDW 17.8 H Plt Count Lymph % (Auto) [place] % (Auto) Lymph # (Auto) [place] # (Auto) Baso # (Auto) Seg Neutrophils % Seg Neuts % (Manual) 93.0 H Lymphocytes % (Manual) 3.0 L Monocytes % (Manual) Nucleated RBC % 1.0 H Seg Neutrophils # Seg Neutrophils # Man 21.9 H Lymphocytes # (Manual) 0.7 L Monocytes # (Manual) 0.9 H PT INR APTT Fibrinogen D-Dimer ABG pH POC ABG pCO2 POC ABG pO2 ABG pO2 ABG HCO3 ABG Base Excess ABG Hemoglobin ABG Oxyhemoglobin ABG Sodium ABG Potassium ABG Chloride ABG Glucose VBG pH Oxyhemoglobin Carboxyhemoglobin Sodium Potassium Chloride Carbon Dioxide BUN 28 H Creatinine 1.6 H Glucose 141 H POC Glucose 126 H Random Insulin C-Peptide Lactic Acid Calcium 7.6 L Ionized Calcium Phosphorus Magnesium AST 162 H ALT 103 H Alkaline Phosphatase Lactate Dehydrogenase NT-Pro-B Natriuret Pep Total Protein 5.4 L Albumin 2.7 L Arterial Blood Glucose Arterial Blood Ionized Calcium Urine WBC (Auto) Vancomycin Trough Phenytoin Crossmatch 10/08/20 10/08/20 10/08/20 11:20 16:05 20:14 WBC RBC Hgb Hct MCV MCH MCHC RDW Plt Count Lymph % (Auto) [place] % (Auto) Lymph # (Auto) [place] # (Auto) Baso # (Auto) Seg Neutrophils % Seg Neuts % (Manual) Lymphocytes % (Manual) Monocytes % (Manual) Nucleated RBC % Seg Neutrophils # Seg Neutrophils # Man Lymphocytes # (Manual) Monocytes # (Manual) PT INR APTT Fibrinogen D-Dimer ABG pH POC ABG pCO2 POC ABG pO2 ABG pO2 ABG HCO3 ABG Base Excess ABG Hemoglobin ABG Oxyhemoglobin ABG Sodium ABG Potassium ABG Chloride ABG Glucose VBG pH Oxyhemoglobin Carboxyhemoglobin Sodium Potassium Chloride Carbon Dioxide BUN Creatinine Glucose POC Glucose 127 H 172 H 147 H Random Insulin C-Peptide Lactic Acid Calcium Ionized Calcium Phosphorus Magnesium AST ALT Alkaline Phosphatase Lactate Dehydrogenase NT-Pro-B Natriuret Pep Total Protein Albumin Arterial Blood Glucose Arterial Blood Ionized Calcium Urine WBC (Auto) Vancomycin Trough Phenytoin Crossmatch 10/08/20 10/08/20 10/09/20 21:27 23:24 02:10 WBC RBC Hgb Hct MCV MCH MCHC RDW Plt Count Lymph % (Auto) [place] % (Auto) Lymph # (Auto) [place] # (Auto) Baso # (Auto) Seg Neutrophils % Seg Neuts % (Manual) Lymphocytes % (Manual) Monocytes % (Manual) Nucleated RBC % Seg Neutrophils # Seg Neutrophils # Man Lymphocytes # (Manual) Monocytes # (Manual) PT INR APTT Fibrinogen D-Dimer ABG pH POC ABG pCO2 POC ABG pO2 ABG pO2 ABG HCO3 ABG Base Excess ABG Hemoglobin ABG Oxyhemoglobin ABG Sodium ABG Potassium ABG Chloride ABG Glucose VBG pH Oxyhemoglobin Carboxyhemoglobin Sodium Potassium Chloride Carbon Dioxide BUN Creatinine Glucose POC Glucose 140 H 135 H 111 H Random Insulin C-Peptide Lactic Acid Calcium Ionized Calcium Phosphorus Magnesium AST ALT Alkaline Phosphatase Lactate Dehydrogenase NT-Pro-B Natriuret Pep Total Protein Albumin Arterial Blood Glucose Arterial Blood Ionized Calcium Urine WBC (Auto) Vancomycin Trough Phenytoin Crossmatch 10/09/20 10/09/20 10/09/20 03:44 04:39 05:46 WBC 19.7 H RBC 3.51 L Hgb Hct MCV MCH MCHC RDW 17.7 H Plt Count Lymph % (Auto) [place] % (Auto) Lymph # (Auto) [place] # (Auto) Baso # (Auto) Seg Neutrophils % Seg Neuts % (Manual) 86.0 H Lymphocytes % (Manual) 4.0 L Monocytes % (Manual) 9.0 H Nucleated RBC % Seg Neutrophils # Seg Neutrophils # Man 16.9 H Lymphocytes # (Manual) 0.8 L Monocytes # (Manual) 1.8 H PT INR APTT Fibrinogen D-Dimer ABG pH 7.513 H POC ABG pCO2 POC ABG pO2 33.6 L ABG pO2 ABG HCO3 ABG Base Excess ABG Hemoglobin 11.1 L ABG Oxyhemoglobin 70.2 L ABG Sodium ABG Potassium 3.2 L ABG Chloride 108.0 H ABG Glucose 108 H VBG pH Oxyhemoglobin Carboxyhemoglobin Sodium Potassium Chloride Carbon Dioxide BUN Creatinine Glucose POC Glucose 109 H Random Insulin C-Peptide Lactic Acid Calcium Ionized Calcium Phosphorus Magnesium AST ALT Alkaline Phosphatase Lactate Dehydrogenase NT-Pro-B Natriuret Pep Total Protein Albumin Arterial Blood Glucose 108 H Arterial Blood Ionized Calcium 4.3 L Urine WBC (Auto) Vancomycin Trough Phenytoin Crossmatch 10/09/20 10/10/20 10/10/20 05:46 04:00 04:00 WBC 18.4 H RBC Hgb Hct MCV MCH MCHC RDW 17.5 H Plt Count Lymph % (Auto) 9.8 L [place] % (Auto) 8.8 H Lymph # (Auto) [place] # (Auto) 1.6 H Baso # (Auto) Seg Neutrophils % 80.0 H Seg Neuts % (Manual) Lymphocytes % (Manual) Monocytes % (Manual) Nucleated RBC % Seg Neutrophils # 14.7 H Seg Neutrophils # Man Lymphocytes # (Manual) Monocytes # (Manual) PT INR APTT Fibrinogen D-Dimer ABG pH POC ABG pCO2 POC ABG pO2 ABG pO2 ABG HCO3 ABG Base Excess ABG Hemoglobin ABG Oxyhemoglobin ABG Sodium ABG Potassium ABG Chloride ABG Glucose VBG pH Oxyhemoglobin Carboxyhemoglobin Sodium 146 H Potassium 3.2 L 2.9 L* Chloride 108.9 H 112.6 H Carbon Dioxide BUN 34 H 28 H Creatinine 1.4 H 1.3 H Glucose 109 H 101 H POC Glucose Random Insulin C-Peptide Lactic Acid Calcium 7.6 L 7.8 L Ionized Calcium Phosphorus Magnesium AST 137 H 122 H ALT 99 H 81 H Alkaline Phosphatase Lactate Dehydrogenase NT-Pro-B Natriuret Pep Total Protein 5.1 L 5.2 L Albumin 2.6 L 2.7 L Arterial Blood Glucose Arterial Blood Ionized Calcium Urine WBC (Auto) Vancomycin Trough Phenytoin Crossmatch 10/10/20 10/10/20 10/11/20 04:42 09:50 00:44 WBC RBC Hgb Hct MCV MCH MCHC RDW Plt Count Lymph % (Auto) [place] % (Auto) Lymph # (Auto) [place] # (Auto) Baso # (Auto) Seg Neutrophils % Seg Neuts % (Manual) Lymphocytes % (Manual) Monocytes % (Manual) Nucleated RBC % Seg Neutrophils # Seg Neutrophils # Man Lymphocytes # (Manual) Monocytes # (Manual) PT INR APTT Fibrinogen D-Dimer ABG pH 7.534 H POC ABG pCO2 POC ABG pO2 ABG pO2 95.2 H ABG HCO3 ABG Base Excess ABG Hemoglobin 11.3 L ABG Oxyhemoglobin ABG Sodium ABG Potassium ABG Chloride ABG Glucose VBG pH Oxyhemoglobin Carboxyhemoglobin Sodium Potassium Chloride Carbon Dioxide BUN Creatinine Glucose POC Glucose 109 H 106 H Random Insulin C-Peptide Lactic Acid Calcium Ionized Calcium Phosphorus Magnesium AST ALT Alkaline Phosphatase Lactate Dehydrogenase NT-Pro-B Natriuret Pep Total Protein Albumin Arterial Blood Glucose Arterial Blood Ionized Calcium Urine WBC (Auto) Vancomycin Trough Phenytoin Crossmatch 10/11/20 10/11/20 10/11/20 04:00 04:00 06:08 WBC 27.0 H RBC Hgb Hct MCV MCH MCHC RDW 17.7 H Plt Count Lymph % (Auto) 6.3 L [place] % (Auto) Lymph # (Auto) [place] # (Auto) 1.5 H Baso # (Auto) Seg Neutrophils % 87.1 H Seg Neuts % (Manual) Lymphocytes % (Manual) Monocytes % (Manual) Nucleated RBC % Seg Neutrophils # 23.5 H Seg Neutrophils # Man Lymphocytes # (Manual) Monocytes # (Manual) PT INR APTT Fibrinogen D-Dimer ABG pH POC ABG pCO2 POC ABG pO2 ABG pO2 ABG HCO3 ABG Base Excess ABG Hemoglobin ABG Oxyhemoglobin ABG Sodium ABG Potassium ABG Chloride ABG Glucose VBG pH Oxyhemoglobin Carboxyhemoglobin Sodium Potassium 3.2 L Chloride 110.4 H Carbon Dioxide 19 L BUN 22 H Creatinine Glucose 116 H POC Glucose 107 H Random Insulin C-Peptide Lactic Acid Calcium 7.7 L Ionized Calcium Phosphorus Magnesium 1.60 L AST ALT Alkaline Phosphatase Lactate Dehydrogenase NT-Pro-B Natriuret Pep Total Protein Albumin Arterial Blood Glucose Arterial Blood Ionized Calcium Urine WBC (Auto) Vancomycin Trough Phenytoin Crossmatch 10/11/20 10/11/20 10/12/20 11:41 13:26 03:52 WBC RBC Hgb Hct MCV MCH MCHC RDW Plt Count Lymph % (Auto) [place] % (Auto) Lymph # (Auto) [place] # (Auto) Baso # (Auto) Seg Neutrophils % Seg Neuts % (Manual) Lymphocytes % (Manual) Monocytes % (Manual) Nucleated RBC % Seg Neutrophils # Seg Neutrophils # Man Lymphocytes # (Manual) Monocytes # (Manual) PT INR APTT Fibrinogen D-Dimer ABG pH POC ABG pCO2 POC ABG pO2 ABG pO2 ABG HCO3 ABG Base Excess ABG Hemoglobin ABG Oxyhemoglobin ABG Sodium ABG Potassium ABG Chloride ABG Glucose VBG pH Oxyhemoglobin Carboxyhemoglobin Sodium Potassium Chloride Carbon Dioxide BUN Creatinine Glucose POC Glucose 116 H 114 H Random Insulin C-Peptide Lactic Acid Calcium Ionized Calcium Phosphorus Magnesium AST ALT Alkaline Phosphatase Lactate Dehydrogenase NT-Pro-B Natriuret Pep Total Protein Albumin Arterial Blood Glucose Arterial Blood Ionized Calcium Urine WBC (Auto) 24.0 H Vancomycin Trough Phenytoin Crossmatch 10/12/20 10/12/20 10/12/20 04:24 14:47 21:33 WBC RBC Hgb Hct MCV MCH MCHC RDW Plt Count Lymph % (Auto) [place] % (Auto) Lymph # (Auto) [place] # (Auto) Baso # (Auto) Seg Neutrophils % Seg Neuts % (Manual) Lymphocytes % (Manual) Monocytes % (Manual) Nucleated RBC % Seg Neutrophils # Seg Neutrophils # Man Lymphocytes # (Manual) Monocytes # (Manual) PT INR APTT Fibrinogen D-Dimer ABG pH POC ABG pCO2 POC ABG pO2 ABG pO2 ABG HCO3 ABG Base Excess ABG Hemoglobin ABG Oxyhemoglobin ABG Sodium ABG Potassium ABG Chloride ABG Glucose VBG pH Oxyhemoglobin Carboxyhemoglobin Sodium Potassium Chloride 109.9 H Carbon Dioxide 13 L BUN 18 H Creatinine Glucose 119 H POC Glucose 107 H Random Insulin C-Peptide Lactic Acid Calcium 7.6 L Ionized Calcium Phosphorus Magnesium 1.60 L AST ALT Alkaline Phosphatase Lactate Dehydrogenase NT-Pro-B Natriuret Pep Total Protein Albumin Arterial Blood Glucose Arterial Blood Ionized Calcium Urine WBC (Auto) Vancomycin Trough Phenytoin Crossmatch 10/12/20 10/12/20 10/13/20 Unknown Unknown 07:00 WBC 24.3 H RBC 3.38 L Hgb 9.8 L Hct MCV MCH MCHC RDW 18.7 H Plt Count Lymph % (Auto) [place] % (Auto) Lymph # (Auto) [place] # (Auto) Baso # (Auto) Seg Neutrophils % Seg Neuts % (Manual) 93.5 H Lymphocytes % (Manual) 4.5 L Monocytes % (Manual) Nucleated RBC % Seg Neutrophils # Seg Neutrophils # Man 22.7 H Lymphocytes # (Manual) 1.1 L Monocytes # (Manual) PT INR APTT Fibrinogen D-Dimer ABG pH POC ABG pCO2 POC ABG pO2 ABG pO2 ABG HCO3 ABG Base Excess ABG Hemoglobin ABG Oxyhemoglobin ABG Sodium ABG Potassium ABG Chloride ABG Glucose VBG pH Oxyhemoglobin Carboxyhemoglobin Sodium 135 L D Potassium 3.1 L Chloride Carbon Dioxide 17 L BUN Creatinine Glucose 510 H* POC Glucose Random Insulin C-Peptide Lactic Acid Calcium 7.2 L Ionized Calcium Phosphorus Magnesium AST ALT Alkaline Phosphatase Lactate Dehydrogenase NT-Pro-B Natriuret Pep Total Protein Albumin Arterial Blood Glucose Arterial Blood Ionized Calcium Urine WBC (Auto) Vancomycin Trough Phenytoin 5.7 L Crossmatch 12/29/20 12/29/20 12/29/20 07:00 07:00 07:18 WBC 23.6 H RBC 3.26 L Hgb 9.4 L Hct 28.7 L MCV MCH MCHC RDW 18.3 H Plt Count Lymph % (Auto) [place] % (Auto) Lymph # (Auto) [place] # (Auto) Baso # (Auto) Seg Neutrophils % Seg Neuts % (Manual) Lymphocytes % (Manual) Monocytes % (Manual) Nucleated RBC % Seg Neutrophils # Seg Neutrophils # Man Lymphocytes # (Manual) Monocytes # (Manual) PT INR APTT Fibrinogen D-Dimer ABG pH 7.473 H POC ABG pCO2 20.7 L POC ABG pO2 137.9 H ABG pO2 ABG HCO3 ABG Base Excess ABG Hemoglobin 11.2 L ABG Oxyhemoglobin 98.3 H ABG Sodium 135.9 L ABG Potassium ABG Chloride 111.0 H ABG Glucose 109 H VBG pH Oxyhemoglobin Carboxyhemoglobin 0.3 L Sodium 135 L Potassium 3.5 L Chloride 109.1 H Carbon Dioxide 18 L BUN Creatinine Glucose POC Glucose Random Insulin C-Peptide Lactic Acid Calcium 7.3 L Ionized Calcium Phosphorus Magnesium 1.60 L AST ALT Alkaline Phosphatase Lactate Dehydrogenase NT-Pro-B Natriuret Pep Total Protein Albumin Arterial Blood Glucose 109 H Arterial Blood Ionized Calcium Urine WBC (Auto) Vancomycin Trough Phenytoin Crossmatch 10/14/20 10/14/20 10/15/20 04:00 04:00 05:50 WBC 28.6 H 23.2 H RBC 3.61 L 3.43 L Hgb 9.9 L Hct 30.0 L MCV MCH MCHC RDW 18.3 H 18.2 H Plt Count Lymph % (Auto) Dodge % (Auto) Lymph # (Auto) Dodge # (Auto) Baso # (Auto) Seg Neutrophils % Seg Neuts % (Manual) 88.0 H 90.0 H Lymphocytes % (Manual) 5.0 L 4.0 L Monocytes % (Manual) Nucleated RBC % Seg Neutrophils # Seg Neutrophils # Man 25.2 H 20.9 H Lymphocytes # (Manual) 0.9 L Monocytes # (Manual) 1.4 H 0.9 H PT INR APTT Fibrinogen D-Dimer ABG pH POC ABG pCO2 POC ABG pO2 ABG pO2 ABG HCO3 ABG Base Excess ABG Hemoglobin ABG Oxyhemoglobin ABG Sodium ABG Potassium ABG Chloride ABG Glucose VBG pH Oxyhemoglobin Carboxyhemoglobin Sodium Potassium Chloride 109.9 H Carbon Dioxide 17 L BUN Creatinine Glucose POC Glucose Random Insulin C-Peptide Lactic Acid Calcium Ionized Calcium Phosphorus Magnesium AST ALT Alkaline Phosphatase Lactate Dehydrogenase NT-Pro-B Natriuret Pep Total Protein Albumin Arterial Blood Glucose Arterial Blood Ionized Calcium Urine WBC (Auto) Vancomycin Trough Phenytoin Crossmatch 10/15/20 10/16/20 10/17/20 05:50 11:57 04:57 WBC 15.2 H RBC 3.43 L Hgb Hct MCV MCH MCHC RDW 18.1 H Plt Count Lymph % (Auto) [place] % (Auto) Lymph # (Auto) [place] # (Auto) Baso # (Auto) Seg Neutrophils % Seg Neuts % (Manual) Lymphocytes % (Manual) Monocytes % (Manual) Nucleated RBC % Seg Neutrophils # Seg Neutrophils # Man Lymphocytes # (Manual) Monocytes # (Manual) PT INR APTT Fibrinogen D-Dimer ABG pH POC ABG pCO2 POC ABG pO2 ABG pO2 ABG HCO3 ABG Base Excess ABG Hemoglobin ABG Oxyhemoglobin ABG Sodium ABG Potassium ABG Chloride ABG Glucose VBG pH Oxyhemoglobin Carboxyhemoglobin Sodium Potassium Chloride 110.3 H Carbon Dioxide 18 L BUN Creatinine Glucose 105 H POC Glucose 111 H Random Insulin C-Peptide Lactic Acid Calcium 8.3 L Ionized Calcium Phosphorus Magnesium AST ALT Alkaline Phosphatase Lactate Dehydrogenase NT-Pro-B Natriuret Pep Total Protein Albumin Arterial Blood Glucose Arterial Blood Ionized Calcium Urine WBC (Auto) Vancomycin Trough Phenytoin Crossmatch 10/17/20 10/17/20 10/18/20 05:25 21:16 01:31 WBC RBC Hgb Hct MCV MCH MCHC RDW Plt Count Lymph % (Auto) [place] % (Auto) Lymph # (Auto) [place] # (Auto) Baso # (Auto) Seg Neutrophils % Seg Neuts % (Manual) Lymphocytes % (Manual) Monocytes % (Manual) Nucleated RBC % Seg Neutrophils # Seg Neutrophils # Man Lymphocytes # (Manual) Monocytes # (Manual) PT INR APTT Fibrinogen D-Dimer ABG pH POC ABG pCO2 POC ABG pO2 ABG pO2 ABG HCO3 ABG Base Excess ABG Hemoglobin ABG Oxyhemoglobin ABG Sodium ABG Potassium ABG Chloride ABG Glucose VBG pH Oxyhemoglobin Carboxyhemoglobin Sodium Potassium Chloride Carbon Dioxide BUN Creatinine Glucose POC Glucose 107 H 106 H 119 H Random Insulin C-Peptide Lactic Acid Calcium Ionized Calcium Phosphorus Magnesium AST ALT Alkaline Phosphatase Lactate Dehydrogenase NT-Pro-B Natriuret Pep Total Protein Albumin Arterial Blood Glucose Arterial Blood Ionized Calcium Urine WBC (Auto) Vancomycin Trough Phenytoin Crossmatch 10/18/20 10/18/20 10/19/20 05:45 11:23 01:14 WBC RBC Hgb Hct MCV MCH MCHC RDW Plt Count Lymph % (Auto) [place] % (Auto) Lymph # (Auto) [place] # (Auto) Baso # (Auto) Seg Neutrophils % Seg Neuts % (Manual) Lymphocytes % (Manual) Monocytes % (Manual) Nucleated RBC % Seg Neutrophils # Seg Neutrophils # Man Lymphocytes # (Manual) Monocytes # (Manual) PT INR APTT Fibrinogen D-Dimer ABG pH POC ABG pCO2 POC ABG pO2 ABG pO2 ABG HCO3 ABG Base Excess ABG Hemoglobin ABG Oxyhemoglobin ABG Sodium ABG Potassium ABG Chloride ABG Glucose VBG pH Oxyhemoglobin Carboxyhemoglobin Sodium Potassium Chloride Carbon Dioxide BUN Creatinine Glucose POC Glucose 106 H 115 H 108 H Random Insulin C-Peptide Lactic Acid Calcium Ionized Calcium Phosphorus Magnesium AST ALT Alkaline Phosphatase Lactate Dehydrogenase NT-Pro-B Natriuret Pep Total Protein Albumin Arterial Blood Glucose Arterial Blood Ionized Calcium Urine WBC (Auto) Vancomycin Trough Phenytoin Crossmatch 10/19/20 10/20/20 10/20/20 09:57 05:40 07:59 WBC RBC Hgb Hct MCV MCH MCHC RDW Plt Count Lymph % (Auto) [place] % (Auto) Lymph # (Auto) [place] # (Auto) Baso # (Auto) Seg Neutrophils % Seg Neuts % (Manual) Lymphocytes % (Manual) Monocytes % (Manual) Nucleated RBC % Seg Neutrophils # Seg Neutrophils # Man Lymphocytes # (Manual) Monocytes # (Manual) PT INR APTT Fibrinogen D-Dimer ABG pH POC ABG pCO2 POC ABG pO2 ABG pO2 ABG HCO3 ABG Base Excess ABG Hemoglobin ABG Oxyhemoglobin ABG Sodium ABG Potassium ABG Chloride ABG Glucose VBG pH Oxyhemoglobin Carboxyhemoglobin Sodium Potassium Chloride Carbon Dioxide BUN Creatinine Glucose 106 H POC Glucose 122 H 109 H Random Insulin C-Peptide Lactic Acid Calcium Ionized Calcium Phosphorus Magnesium AST ALT Alkaline Phosphatase Lactate Dehydrogenase NT-Pro-B Natriuret Pep Total Protein Albumin Arterial Blood Glucose Arterial Blood Ionized Calcium Urine WBC (Auto) Vancomycin Trough Phenytoin Crossmatch 10/20/20 10/20/20 10/21/20 16:52 16:52 13:54 WBC 18.8 H 17.0 H RBC Hgb Hct MCV MCH MCHC RDW 17.7 H 17.8 H Plt Count 547 H 544 H Lymph % (Auto) 11.2 L [place] % (Auto) 8.1 H Lymph # (Auto) [place] # (Auto) 1.5 H Baso # (Auto) 0.2 H Seg Neutrophils % 78.8 H Seg Neuts % (Manual) Lymphocytes % (Manual) Monocytes % (Manual) Nucleated RBC % Seg Neutrophils # 14.8 H Seg Neutrophils # Man Lymphocytes # (Manual) Monocytes # (Manual) PT INR APTT Fibrinogen D-Dimer ABG pH POC ABG pCO2 POC ABG pO2 ABG pO2 ABG HCO3 ABG Base Excess ABG Hemoglobin ABG Oxyhemoglobin ABG Sodium ABG Potassium ABG Chloride ABG Glucose VBG pH Oxyhemoglobin Carboxyhemoglobin Sodium Potassium Chloride Carbon Dioxide BUN Creatinine Glucose POC Glucose Random Insulin C-Peptide Lactic Acid Calcium Ionized Calcium Phosphorus Magnesium AST ALT Alkaline Phosphatase Lactate Dehydrogenase NT-Pro-B Natriuret Pep Total Protein Albumin Arterial Blood Glucose Arterial Blood Ionized Calcium Urine WBC (Auto) Vancomycin Trough 34.5 H Phenytoin Crossmatch 10/21/20 10/22/20 10/23/20 13:54 07:26 05:34 WBC 18.7 H 13.0 H RBC 3.64 L 3.50 L Hgb Hct 30.0 L MCV MCH MCHC 35 H RDW 17.7 H 17.6 H Plt Count 502 H 503 H Lymph % (Auto) [place] % (Auto) Lymph # (Auto) [place] # (Auto) Baso # (Auto) Seg Neutrophils % Seg Neuts % (Manual) Lymphocytes % (Manual) Monocytes % (Manual) Nucleated RBC % Seg Neutrophils # Seg Neutrophils # Man Lymphocytes # (Manual) Monocytes # (Manual) PT INR APTT Fibrinogen D-Dimer ABG pH POC ABG pCO2 POC ABG pO2 ABG pO2 ABG HCO3 ABG Base Excess ABG Hemoglobin ABG Oxyhemoglobin ABG Sodium ABG Potassium ABG Chloride ABG Glucose VBG pH Oxyhemoglobin Carboxyhemoglobin Sodium 136 L Potassium Chloride Carbon Dioxide BUN Creatinine Glucose 120 H POC Glucose Random Insulin C-Peptide Lactic Acid Calcium Ionized Calcium Phosphorus Magnesium AST ALT Alkaline Phosphatase Lactate Dehydrogenase NT-Pro-B Natriuret Pep Total Protein Albumin Arterial Blood Glucose Arterial Blood Ionized Calcium Urine WBC (Auto) Vancomycin Trough Phenytoin Crossmatch 10/23/20 10/26/20 10/27/20 05:34 10:30 07:53 WBC 13.6 H RBC 3.38 L Hgb 10.0 L Hct 28.8 L MCV MCH MCHC 35 H RDW 17.6 H Plt Count Lymph % (Auto) [place] % (Auto) Lymph # (Auto) [place] # (Auto) Baso # (Auto) Seg Neutrophils % Seg Neuts % (Manual) Lymphocytes % (Manual) Monocytes % (Manual) Nucleated RBC % Seg Neutrophils # Seg Neutrophils # Man Lymphocytes # (Manual) Monocytes # (Manual) PT INR APTT Fibrinogen D-Dimer ABG pH 7.459 H POC ABG pCO2 POC ABG pO2 ABG pO2 112.2 H ABG HCO3 ABG Base Excess ABG Hemoglobin ABG Oxyhemoglobin ABG Sodium ABG Potassium ABG Chloride ABG Glucose VBG pH Oxyhemoglobin Carboxyhemoglobin Sodium 135 L Potassium Chloride Carbon Dioxide BUN Creatinine Glucose 105 H POC Glucose Random Insulin C-Peptide Lactic Acid Calcium Ionized Calcium Phosphorus Magnesium AST ALT Alkaline Phosphatase Lactate Dehydrogenase NT-Pro-B Natriuret Pep Total Protein Albumin Arterial Blood Glucose Arterial Blood Ionized Calcium Urine WBC (Auto) Vancomycin Trough Phenytoin Crossmatch 10/27/20 10/27/20 10/28/20 07:53 11:31 05:19 WBC RBC Hgb Hct MCV MCH MCHC RDW Plt Count Lymph % (Auto) [place] % (Auto) Lymph # (Auto) [place] # (Auto) Baso # (Auto) Seg Neutrophils % Seg Neuts % (Manual) Lymphocytes % (Manual) Monocytes % (Manual) Nucleated RBC % Seg Neutrophils # Seg Neutrophils # Man Lymphocytes # (Manual) Monocytes # (Manual) PT INR APTT Fibrinogen D-Dimer ABG pH POC ABG pCO2 POC ABG pO2 ABG pO2 ABG HCO3 ABG Base Excess ABG Hemoglobin ABG Oxyhemoglobin ABG Sodium ABG Potassium ABG Chloride ABG Glucose VBG pH Oxyhemoglobin Carboxyhemoglobin Sodium Potassium Chloride Carbon Dioxide BUN 20 H Creatinine Glucose 112 H POC Glucose 113 H 112 H Random Insulin C-Peptide Lactic Acid Calcium Ionized Calcium Phosphorus Magnesium AST 83 H ALT Alkaline Phosphatase Lactate Dehydrogenase NT-Pro-B Natriuret Pep Total Protein Albumin 3.8 L Arterial Blood Glucose Arterial Blood Ionized Calcium Urine WBC (Auto) Vancomycin Trough Phenytoin Crossmatch 10/29/20 10/29/20 10/29/20 07:56 07:56 11:37 WBC 13.6 H RBC Hgb Hct MCV MCH MCHC RDW 17.0 H Plt Count Lymph % (Auto) [place] % (Auto) Lymph # (Auto) [place] # (Auto) Baso # (Auto) Seg Neutrophils % Seg Neuts % (Manual) 80.0 H Lymphocytes % (Manual) Monocytes % (Manual) Nucleated RBC % Seg Neutrophils # Seg Neutrophils # Man 10.9 H Lymphocytes # (Manual) Monocytes # (Manual) PT INR APTT Fibrinogen D-Dimer ABG pH POC ABG pCO2 POC ABG pO2 ABG pO2 ABG HCO3 ABG Base Excess ABG Hemoglobin ABG Oxyhemoglobin ABG Sodium ABG Potassium ABG Chloride ABG Glucose VBG pH Oxyhemoglobin Carboxyhemoglobin Sodium Potassium Chloride Carbon Dioxide BUN Creatinine Glucose POC Glucose 108 H Random Insulin C-Peptide Lactic Acid Calcium Ionized Calcium Phosphorus 4.70 H Magnesium AST ALT Alkaline Phosphatase Lactate Dehydrogenase NT-Pro-B Natriuret Pep Total Protein Albumin Arterial Blood Glucose Arterial Blood Ionized Calcium Urine WBC (Auto) Vancomycin Trough Phenytoin Crossmatch 10/29/20 10/30/20 10/30/20 13:32 12:11 17:19 WBC RBC Hgb Hct MCV MCH MCHC RDW Plt Count Lymph % (Auto) [place] % (Auto) Lymph # (Auto) [place] # (Auto) Baso # (Auto) Seg Neutrophils % Seg Neuts % (Manual) Lymphocytes % (Manual) Monocytes % (Manual) Nucleated RBC % Seg Neutrophils # Seg Neutrophils # Man Lymphocytes # (Manual) Monocytes # (Manual) PT INR APTT Fibrinogen D-Dimer ABG pH POC ABG pCO2 POC ABG pO2 ABG pO2 ABG HCO3 ABG Base Excess ABG Hemoglobin ABG Oxyhemoglobin ABG Sodium ABG Potassium ABG Chloride ABG Glucose VBG pH Oxyhemoglobin Carboxyhemoglobin Sodium Potassium Chloride Carbon Dioxide BUN Creatinine Glucose POC Glucose 108 H 106 H 107 H Random Insulin C-Peptide Lactic Acid Calcium Ionized Calcium Phosphorus Magnesium AST ALT Alkaline Phosphatase Lactate Dehydrogenase NT-Pro-B Natriuret Pep Total Protein Albumin Arterial Blood Glucose Arterial Blood Ionized Calcium Urine WBC (Auto) Vancomycin Trough Phenytoin Crossmatch 10/31/20 10/31/20 11/01/20 03:20 05:43 04:55 WBC RBC Hgb Hct MCV MCH MCHC RDW Plt Count Lymph % (Auto) [place] % (Auto) Lymph # (Auto) [place] # (Auto) Baso # (Auto) Seg Neutrophils % Seg Neuts % (Manual) Lymphocytes % (Manual) Monocytes % (Manual) Nucleated RBC % Seg Neutrophils # Seg Neutrophils # Man Lymphocytes # (Manual) Monocytes # (Manual) PT INR APTT Fibrinogen D-Dimer ABG pH POC ABG pCO2 POC ABG pO2 ABG pO2 ABG HCO3 ABG Base Excess ABG Hemoglobin ABG Oxyhemoglobin ABG Sodium ABG Potassium ABG Chloride ABG Glucose VBG pH Oxyhemoglobin Carboxyhemoglobin Sodium Potassium Chloride Carbon Dioxide BUN Creatinine Glucose POC Glucose 108 H 115 H 108 H Random Insulin C-Peptide Lactic Acid Calcium Ionized Calcium Phosphorus Magnesium AST ALT Alkaline Phosphatase Lactate Dehydrogenase NT-Pro-B Natriuret Pep Total Protein Albumin Arterial Blood Glucose Arterial Blood Ionized Calcium Urine WBC (Auto) Vancomycin Trough Phenytoin Crossmatch 11/01/20 11/01/20 11/01/20 05:01 16:47 21:36 WBC RBC Hgb Hct MCV MCH MCHC RDW Plt Count Lymph % (Auto) [place] % (Auto) Lymph # (Auto) [place] # (Auto) Baso # (Auto) Seg Neutrophils % Seg Neuts % (Manual) Lymphocytes % (Manual) Monocytes % (Manual) Nucleated RBC % Seg Neutrophils # Seg Neutrophils # Man Lymphocytes # (Manual) Monocytes # (Manual) PT INR APTT Fibrinogen D-Dimer ABG pH POC ABG pCO2 POC ABG pO2 ABG pO2 ABG HCO3 ABG Base Excess ABG Hemoglobin ABG Oxyhemoglobin ABG Sodium ABG Potassium ABG Chloride ABG Glucose VBG pH Oxyhemoglobin Carboxyhemoglobin Sodium 135 L Potassium Chloride Carbon Dioxide BUN Creatinine Glucose POC Glucose 116 H 112 H Random Insulin C-Peptide Lactic Acid Calcium Ionized Calcium Phosphorus Magnesium AST 93 H ALT Alkaline Phosphatase 132 H Lactate Dehydrogenase NT-Pro-B Natriuret Pep Total Protein Albumin 3.6 L Arterial Blood Glucose Arterial Blood Ionized Calcium Urine WBC (Auto) Vancomycin Trough Phenytoin Crossmatch 11/02/20 11/02/20 11/02/20 17:45 19:19 19:19 WBC RBC Hgb Hct MCV MCH MCHC RDW Plt Count Lymph % (Auto) [place] % (Auto) Lymph # (Auto) [place] # (Auto) Baso # (Auto) Seg Neutrophils % Seg Neuts % (Manual) Lymphocytes % (Manual) Monocytes % (Manual) Nucleated RBC % Seg Neutrophils # Seg Neutrophils # Man Lymphocytes # (Manual) Monocytes # (Manual) PT INR APTT Fibrinogen D-Dimer ABG pH POC ABG pCO2 POC ABG pO2 ABG pO2 ABG HCO3 ABG Base Excess ABG Hemoglobin ABG Oxyhemoglobin ABG Sodium ABG Potassium ABG Chloride ABG Glucose VBG pH Oxyhemoglobin Carboxyhemoglobin Sodium Potassium Chloride Carbon Dioxide BUN Creatinine Glucose POC Glucose 107 H Random Insulin 43.2 H C-Peptide 6.23 H Lactic Acid Calcium Ionized Calcium Phosphorus Magnesium AST ALT Alkaline Phosphatase Lactate Dehydrogenase NT-Pro-B Natriuret Pep Total Protein Albumin Arterial Blood Glucose Arterial Blood Ionized Calcium Urine WBC (Auto) Vancomycin Trough Phenytoin Crossmatch 11/03/20 11/04/20 11/04/20 21:49 05:00 05:00 WBC 13.8 H RBC Hgb Hct MCV MCH MCHC RDW 16.6 H Plt Count Lymph % (Auto) 11.8 L [place] % (Auto) 11.0 H Lymph # (Auto) [place] # (Auto) 1.5 H Baso # (Auto) Seg Neutrophils % 75.1 H Seg Neuts % (Manual) Lymphocytes % (Manual) Monocytes % (Manual) Nucleated RBC % Seg Neutrophils # 10.4 H Seg Neutrophils # Man Lymphocytes # (Manual) Monocytes # (Manual) PT INR APTT Fibrinogen D-Dimer ABG pH POC ABG pCO2 POC ABG pO2 ABG pO2 ABG HCO3 ABG Base Excess ABG Hemoglobin ABG Oxyhemoglobin ABG Sodium ABG Potassium ABG Chloride ABG Glucose VBG pH Oxyhemoglobin Carboxyhemoglobin Sodium Potassium Chloride Carbon Dioxide BUN Creatinine Glucose 112 H POC Glucose 109 H Random Insulin C-Peptide Lactic Acid Calcium Ionized Calcium Phosphorus Magnesium AST 90 H ALT Alkaline Phosphatase Lactate Dehydrogenase NT-Pro-B Natriuret Pep Total Protein Albumin 3.8 L Arterial Blood Glucose Arterial Blood Ionized Calcium Urine WBC (Auto) Vancomycin Trough Phenytoin Crossmatch 11/04/20 11/04/20 11/05/20 06:03 23:47 07:47 WBC RBC Hgb Hct MCV MCH MCHC RDW Plt Count Lymph % (Auto) [place] % (Auto) Lymph # (Auto) [place] # (Auto) Baso # (Auto) Seg Neutrophils % Seg Neuts % (Manual) Lymphocytes % (Manual) Monocytes % (Manual) Nucleated RBC % Seg Neutrophils # Seg Neutrophils # Man Lymphocytes # (Manual) Monocytes # (Manual) PT INR APTT Fibrinogen D-Dimer ABG pH POC ABG pCO2 POC ABG pO2 ABG pO2 ABG HCO3 ABG Base Excess ABG Hemoglobin ABG Oxyhemoglobin ABG Sodium ABG Potassium ABG Chloride ABG Glucose VBG pH Oxyhemoglobin Carboxyhemoglobin Sodium Potassium Chloride Carbon Dioxide BUN Creatinine Glucose POC Glucose 107 H 121 H 111 H Random Insulin C-Peptide Lactic Acid Calcium Ionized Calcium Phosphorus Magnesium AST ALT Alkaline Phosphatase Lactate Dehydrogenase NT-Pro-B Natriuret Pep Total Protein Albumin Arterial Blood Glucose Arterial Blood Ionized Calcium Urine WBC (Auto) Vancomycin Trough Phenytoin Crossmatch 11/05/20 11/06/20 11/06/20 23:24 17:04 23:36 WBC RBC Hgb Hct MCV MCH MCHC RDW Plt Count Lymph % (Auto) [place] % (Auto) Lymph # (Auto) [place] # (Auto) Baso # (Auto) Seg Neutrophils % Seg Neuts % (Manual) Lymphocytes % (Manual) Monocytes % (Manual) Nucleated RBC % Seg Neutrophils # Seg Neutrophils # Man Lymphocytes # (Manual) Monocytes # (Manual) PT INR APTT Fibrinogen D-Dimer ABG pH POC ABG pCO2 POC ABG pO2 ABG pO2 ABG HCO3 ABG Base Excess ABG Hemoglobin ABG Oxyhemoglobin ABG Sodium ABG Potassium ABG Chloride ABG Glucose VBG pH Oxyhemoglobin Carboxyhemoglobin Sodium Potassium Chloride Carbon Dioxide BUN Creatinine Glucose POC Glucose 111 H 112 H 108 H Random Insulin C-Peptide Lactic Acid Calcium Ionized Calcium Phosphorus Magnesium AST ALT Alkaline Phosphatase Lactate Dehydrogenase NT-Pro-B Natriuret Pep Total Protein Albumin Arterial Blood Glucose Arterial Blood Ionized Calcium Urine WBC (Auto) Vancomycin Trough Phenytoin Crossmatch 11/07/20 11/07/20 11/07/20 03:33 04:44 04:44 WBC RBC Hgb Hct MCV MCH MCHC RDW 16.6 H Plt Count Lymph % (Auto) [place] % (Auto) 13.1 H Lymph # (Auto) [place] # (Auto) 1.3 H Baso # (Auto) Seg Neutrophils % Seg Neuts % (Manual) Lymphocytes % (Manual) Monocytes % (Manual) Nucleated RBC % Seg Neutrophils # Seg Neutrophils # Man Lymphocytes # (Manual) Monocytes # (Manual) PT INR APTT Fibrinogen D-Dimer ABG pH POC ABG pCO2 POC ABG pO2 ABG pO2 ABG HCO3 ABG Base Excess ABG Hemoglobin ABG Oxyhemoglobin ABG Sodium ABG Potassium ABG Chloride ABG Glucose VBG pH Oxyhemoglobin Carboxyhemoglobin Sodium Potassium Chloride Carbon Dioxide BUN Creatinine Glucose 103 H POC Glucose 109 H Random Insulin C-Peptide Lactic Acid Calcium Ionized Calcium Phosphorus 5.30 H Magnesium AST ALT Alkaline Phosphatase Lactate Dehydrogenase NT-Pro-B Natriuret Pep Total Protein Albumin Arterial Blood Glucose Arterial Blood Ionized Calcium Urine WBC (Auto) Vancomycin Trough Phenytoin Crossmatch 11/07/20 11/07/20 11/08/20 15:58 23:46 07:30 WBC RBC Hgb Hct MCV MCH MCHC RDW Plt Count Lymph % (Auto) [place] % (Auto) Lymph # (Auto) [place] # (Auto) Baso # (Auto) Seg Neutrophils % Seg Neuts % (Manual) Lymphocytes % (Manual) Monocytes % (Manual) Nucleated RBC % Seg Neutrophils # Seg Neutrophils # Man Lymphocytes # (Manual) Monocytes # (Manual) PT INR APTT Fibrinogen D-Dimer ABG pH POC ABG pCO2 POC ABG pO2 ABG pO2 ABG HCO3 ABG Base Excess ABG Hemoglobin ABG Oxyhemoglobin ABG Sodium ABG Potassium ABG Chloride ABG Glucose VBG pH Oxyhemoglobin Carboxyhemoglobin Sodium Potassium Chloride Carbon Dioxide BUN Creatinine Glucose POC Glucose 108 H 106 H 109 H Random Insulin C-Peptide Lactic Acid Calcium Ionized Calcium Phosphorus Magnesium AST ALT Alkaline Phosphatase Lactate Dehydrogenase NT-Pro-B Natriuret Pep Total Protein Albumin Arterial Blood Glucose Arterial Blood Ionized Calcium Urine WBC (Auto) Vancomycin Trough Phenytoin Crossmatch 11/08/20 11/08/20 11/09/20 11:48 23:32 17:10 WBC RBC Hgb Hct MCV MCH MCHC RDW Plt Count Lymph % (Auto) [place] % (Auto) Lymph # (Auto) [place] # (Auto) Baso # (Auto) Seg Neutrophils % Seg Neuts % (Manual) Lymphocytes % (Manual) Monocytes % (Manual) Nucleated RBC % Seg Neutrophils # Seg Neutrophils # Man Lymphocytes # (Manual) Monocytes # (Manual) PT INR APTT Fibrinogen D-Dimer ABG pH POC ABG pCO2 POC ABG pO2 ABG pO2 ABG HCO3 ABG Base Excess ABG Hemoglobin ABG Oxyhemoglobin ABG Sodium ABG Potassium ABG Chloride ABG Glucose VBG pH Oxyhemoglobin Carboxyhemoglobin Sodium Potassium Chloride Carbon Dioxide BUN Creatinine Glucose POC Glucose 110 H 116 H 112 H Random Insulin C-Peptide Lactic Acid Calcium Ionized Calcium Phosphorus Magnesium AST ALT Alkaline Phosphatase Lactate Dehydrogenase NT-Pro-B Natriuret Pep Total Protein Albumin Arterial Blood Glucose Arterial Blood Ionized Calcium Urine WBC (Auto) Vancomycin Trough Phenytoin Crossmatch 11/09/20 11/10/20 11/10/20 21:42 05:49 07:17 WBC RBC Hgb Hct MCV MCH MCHC RDW Plt Count Lymph % (Auto) [place] % (Auto) Lymph # (Auto) [place] # (Auto) Baso # (Auto) Seg Neutrophils % Seg Neuts % (Manual) Lymphocytes % (Manual) Monocytes % (Manual) Nucleated RBC % Seg Neutrophils # Seg Neutrophils # Man Lymphocytes # (Manual) Monocytes # (Manual) PT INR APTT Fibrinogen D-Dimer ABG pH POC ABG pCO2 POC ABG pO2 ABG pO2 ABG HCO3 ABG Base Excess ABG Hemoglobin ABG Oxyhemoglobin ABG Sodium ABG Potassium ABG Chloride ABG Glucose VBG pH Oxyhemoglobin Carboxyhemoglobin Sodium Potassium Chloride Carbon Dioxide BUN Creatinine Glucose POC Glucose 110 H 108 H 111 H Random Insulin C-Peptide Lactic Acid Calcium Ionized Calcium Phosphorus Magnesium AST ALT Alkaline Phosphatase Lactate Dehydrogenase NT-Pro-B Natriuret Pep Total Protein Albumin Arterial Blood Glucose Arterial Blood Ionized Calcium Urine WBC (Auto) Vancomycin Trough Phenytoin Crossmatch 11/10/20 11/11/20 11/11/20 20:36 04:58 11:56 WBC RBC Hgb Hct MCV MCH MCHC RDW Plt Count Lymph % (Auto) [place] % (Auto) Lymph # (Auto) [place] # (Auto) Baso # (Auto) Seg Neutrophils % Seg Neuts % (Manual) Lymphocytes % (Manual) Monocytes % (Manual) Nucleated RBC % Seg Neutrophils # Seg Neutrophils # Man Lymphocytes # (Manual) Monocytes # (Manual) PT INR APTT Fibrinogen D-Dimer ABG pH POC ABG pCO2 POC ABG pO2 ABG pO2 ABG HCO3 ABG Base Excess ABG Hemoglobin ABG Oxyhemoglobin ABG Sodium ABG Potassium ABG Chloride ABG Glucose VBG pH Oxyhemoglobin Carboxyhemoglobin Sodium Potassium Chloride Carbon Dioxide BUN Creatinine Glucose POC Glucose 111 H 109 H 109 H Random Insulin C-Peptide Lactic Acid Calcium Ionized Calcium Phosphorus Magnesium AST ALT Alkaline Phosphatase Lactate Dehydrogenase NT-Pro-B Natriuret Pep Total Protein Albumin Arterial Blood Glucose Arterial Blood Ionized Calcium Urine WBC (Auto) Vancomycin Trough Phenytoin Crossmatch 11/11/20 11/11/20 11/11/20 13:50 13:50 15:50 WBC RBC Hgb Hct MCV MCH MCHC RDW Plt Count Lymph % (Auto) [place] % (Auto) Lymph # (Auto) [place] # (Auto) Baso # (Auto) Seg Neutrophils % Seg Neuts % (Manual) Lymphocytes % (Manual) Monocytes % (Manual) Nucleated RBC % Seg Neutrophils # Seg Neutrophils # Man Lymphocytes # (Manual) Monocytes # (Manual) PT INR APTT Fibrinogen D-Dimer 1974.47 H ABG pH POC ABG pCO2 POC ABG pO2 ABG pO2 ABG HCO3 ABG Base Excess ABG Hemoglobin ABG Oxyhemoglobin ABG Sodium ABG Potassium ABG Chloride ABG Glucose VBG pH Oxyhemoglobin Carboxyhemoglobin Sodium Potassium Chloride Carbon Dioxide BUN Creatinine Glucose POC Glucose 107 H Random Insulin C-Peptide Lactic Acid Calcium Ionized Calcium Phosphorus Magnesium AST ALT Alkaline Phosphatase Lactate Dehydrogenase NT-Pro-B Natriuret Pep Total Protein Albumin Arterial Blood Glucose Arterial Blood Ionized Calcium Urine WBC (Auto) > 182.0 H Vancomycin Trough Phenytoin Crossmatch 11/11/20 11/12/20 11/12/20 23:17 11:33 22:20 WBC RBC Hgb Hct MCV MCH MCHC RDW Plt Count Lymph % (Auto) [place] % (Auto) Lymph # (Auto) [place] # (Auto) Baso # (Auto) Seg Neutrophils % Seg Neuts % (Manual) Lymphocytes % (Manual) Monocytes % (Manual) Nucleated RBC % Seg Neutrophils # Seg Neutrophils # Man Lymphocytes # (Manual) Monocytes # (Manual) PT INR APTT Fibrinogen D-Dimer ABG pH POC ABG pCO2 POC ABG pO2 ABG pO2 ABG HCO3 ABG Base Excess ABG Hemoglobin ABG Oxyhemoglobin ABG Sodium ABG Potassium ABG Chloride ABG Glucose VBG pH Oxyhemoglobin Carboxyhemoglobin Sodium Potassium Chloride Carbon Dioxide BUN Creatinine Glucose POC Glucose 119 H 111 H 107 H Random Insulin C-Peptide Lactic Acid Calcium Ionized Calcium Phosphorus Magnesium AST ALT Alkaline Phosphatase Lactate Dehydrogenase NT-Pro-B Natriuret Pep Total Protein Albumin Arterial Blood Glucose Arterial Blood Ionized Calcium Urine WBC (Auto) Vancomycin Trough Phenytoin Crossmatch 11/13/20 11/13/20 11/13/20 01:52 07:33 10:05 WBC RBC Hgb Hct MCV MCH MCHC RDW Plt Count Lymph % (Auto) [place] % (Auto) Lymph # (Auto) [place] # (Auto) Baso # (Auto) Seg Neutrophils % Seg Neuts % (Manual) Lymphocytes % (Manual) Monocytes % (Manual) Nucleated RBC % Seg Neutrophils # Seg Neutrophils # Man Lymphocytes # (Manual) Monocytes # (Manual) PT INR APTT Fibrinogen D-Dimer ABG pH POC ABG pCO2 POC ABG pO2 ABG pO2 ABG HCO3 ABG Base Excess ABG Hemoglobin ABG Oxyhemoglobin ABG Sodium ABG Potassium ABG Chloride ABG Glucose VBG pH Oxyhemoglobin Carboxyhemoglobin Sodium Potassium Chloride Carbon Dioxide BUN Creatinine Glucose 114 H POC Glucose 124 H 106 H Random Insulin C-Peptide Lactic Acid Calcium Ionized Calcium Phosphorus 4.60 H Magnesium AST ALT Alkaline Phosphatase Lactate Dehydrogenase NT-Pro-B Natriuret Pep Total Protein Albumin Arterial Blood Glucose Arterial Blood Ionized Calcium Urine WBC (Auto) Vancomycin Trough Phenytoin Crossmatch 11/13/20 11/13/20 11/14/20 11:50 17:20 05:26 WBC RBC Hgb Hct MCV MCH MCHC RDW Plt Count Lymph % (Auto) [place] % (Auto) Lymph # (Auto) [place] # (Auto) Baso # (Auto) Seg Neutrophils % Seg Neuts % (Manual) Lymphocytes % (Manual) Monocytes % (Manual) Nucleated RBC % Seg Neutrophils # Seg Neutrophils # Man Lymphocytes # (Manual) Monocytes # (Manual) PT INR APTT Fibrinogen D-Dimer ABG pH POC ABG pCO2 POC ABG pO2 ABG pO2 ABG HCO3 ABG Base Excess ABG Hemoglobin ABG Oxyhemoglobin ABG Sodium ABG Potassium ABG Chloride ABG Glucose VBG pH Oxyhemoglobin Carboxyhemoglobin Sodium Potassium Chloride Carbon Dioxide BUN Creatinine Glucose POC Glucose 113 H 110 H 110 H Random Insulin C-Peptide Lactic Acid Calcium Ionized Calcium Phosphorus Magnesium AST ALT Alkaline Phosphatase Lactate Dehydrogenase NT-Pro-B Natriuret Pep Total Protein Albumin Arterial Blood Glucose Arterial Blood Ionized Calcium Urine WBC (Auto) Vancomycin Trough Phenytoin Crossmatch 11/14/20 11/15/20 23:23 05:07 WBC RBC Hgb Hct MCV MCH MCHC RDW Plt Count Lymph % (Auto) Dodge % (Auto) Lymph # (Auto) Dodge # (Auto) Baso # (Auto) Seg Neutrophils % Seg Neuts % (Manual) Lymphocytes % (Manual) Monocytes % (Manual) Nucleated RBC % Seg Neutrophils # Seg Neutrophils # Man Lymphocytes # (Manual) Monocytes # (Manual) PT INR APTT Fibrinogen D-Dimer ABG pH POC ABG pCO2 POC ABG pO2 ABG pO2 ABG HCO3 ABG Base Excess ABG Hemoglobin ABG Oxyhemoglobin ABG Sodium ABG Potassium ABG Chloride ABG Glucose VBG pH Oxyhemoglobin Carboxyhemoglobin Sodium Potassium Chloride Carbon Dioxide BUN Creatinine Glucose POC Glucose 112 H 115 H Random Insulin C-Peptide Lactic Acid Calcium Ionized Calcium Phosphorus Magnesium AST ALT Alkaline Phosphatase Lactate Dehydrogenase NT-Pro-B Natriuret Pep Total Protein Albumin Arterial Blood Glucose Arterial Blood Ionized Calcium Urine WBC (Auto) Vancomycin Trough Phenytoin Crossmatch
--- NOTE | 2020-11-15 13:24 | Progress Note ---
Assessment and Plan Assessment and plan: 30 y/o female patient with Eclampsia/help syndrome, s/p emergent section with DIC, hemorrhage, supracervical abdominal hysterectomy, acute respiratory failure , tracheostomy on T-piece with morbid obesity, s/p cardiac arrest 12/08/2019 status post CPR per ACLS, acute hypoxic brain injury Acute kidney injury improved, severe shock requiring pressors, DIC septic shock improved, history of C. difficile colitis completed treatment with vancomycin. Tracheostomy on T-piece, continues to require 5 L of oxygen. Herpetic flareup, ID started treatment with antibiotics --Cardiac arrest; 10/07/2020 ,status post CPR --Acute hypoxic brain injury; Supportive care, closely monitor --Acute hypoxic respiratory failure: Tracheostomy on T-piece , 5 L oxygen, saturating 100% Nebulizers, continue oxygen titrate O2 sats to more than 90% Pulmonary critical following COVID-19 negative C. difficile positive; Patient on contact isolation Completed treatment --Afebrile: Blood, urine, tracheal aspirate cultures New cultures negative to date Monitor off antibiotics Closely monitor --Sepsis; received antibiotics Continue to monitor off antibiotics ID following --COVID-19 test negative; 10/08/2020 --C. difficile colitis test; positive; 10/16/2020 --Acute metabolic encephalopathy --Acute kidney injury; vasomotor nephropathy Resolved, renal function within normal limits, closely monitor --Shock; monitor of pressors Blood pressures reasonable level --DIC; sepsis, septic shock, resolved --History of preeclampsia; / hemorrhage Status post hysterectomy --History of C. difficile colitis; completed oral vancomycin --DVT/SVT and right upper extremity Very poor prognosis, Consults recommendations noted and appreciated We will closely monitor the patient and adjust management as needed Plan of care reviewed with the patient's nurse. Brief history; 30 year old -Fijian female CHE 10/25/20 at 36w5d who presents with seizures in triage on 10/02/20. Pt was not able to provide history but per pt's , she presented to the hospital to return a 24 hour urine specimen for analysis. She then suddenly reported that she did not feel good. She was taken to labor and delivery and shortly after arrival, she began seizing. During this time, a code met was called because the patient became hypoxic. She was then noted to be without a pulse. Chest compressions were started immediately, and the patient was emergently taken to the operating room for delivery of the fetus. Off note, This patient has had care at [facility] with comanagement by [facility] since 11 wks complicated by ADHD, morbid obesity, generalized anxiety disorder, panic attacks, chronic narcotic use, fibromyalgia, GERD, Irritable Bowel Syndrome, Migraines, h/o endometrial ablation and ovarian vein embolization, genital herpes, insomnia, LGA fetus, nausea and vomiting, polyhydramnios, quad screen positive for Down's Syndrome, and previous x 3. She is GBS negative. , Patient tracheostomy on ventilatory support, unable to wean, continue supportive care poor prognosis 11:30: Pt brought to L&D triage for evaluation of possible labor. Pt accompanied by her spouse. Pt spouse poor historian; unable to obtain history- allergies at this time. Pt taken from registration to triage area via WC. Pt unresponsive, actively seizing with snorous respirations. corporate development intern, Kassy, called and requesting assistance. 11:35: Multiple staff at bedside. Pt 02 sat 67% on nonrebreather, unable to read BP . Yifan Theodore CRNA, at bedside for intubation and assistance with IV insertion. INT attempt by multiple RNs unsuccessful at this time. 11:42: Pt being bagged by KORIN, 02% 79%. No pulse palpated, compressions on at this time; bharati young called and Dr. Newberry preparing OR for emergent c/s. 11:44: Continued compressions on stretcher while transporting pt to OR 1. Pt being bagged with jaw thrust manuever in place by KORIN Stringer student. 11:45: Arrival to OR 1. Dr. Newberry and Dr. Portillo present for emergent c/s. Code team arrived for continued care. patient revived and c/s done Patient has been bleeding from C/s site followed by supracervical hysterectomy for severe bleeding, Patient transfused multiple units of PRBC, Patient in DIC. Patient transferred to the ICU Hospital course; 10/03. Patient seen and examined at bedside this morning. Patient is nonre sponsive and mechanically ventilated. On pressors. Labs reviewed-has leukocytosis, anemia, thrombocytopenia, ADOLPH and lactic acidosis. Started on IV antibiotics to cover possible sepsis secondary to DIC. Hematology oncology recommendations appreciated-needs additional cryoprecipitate and FFP. Monitor D-dimer, fibrinogen and frequent labs. Nephrology consulted for lactic acidosis and ADOLPH. 10/04. Remains mechanically ventilated. Marceline antibiotics. Labs shows improved acidosis - lactic acid 3.5. Hb drop noted. Getting transfused 2 units PRBCs. Platelet count is ~40k. Continue to monitor labs closely. Critical care team on board. 10/05; xray reviewed, concerning for multifocal infilrate, likely underlying Pneumonia, will add ID consult to assist with management of this critically ill patient, start tube feed, closely monitor renal system 10/06: Resumed care, remains on mechanical ventilation. No active bleeding, H&H stable. Continue to monitor CBC and BMP. Continue IV antibiotic for underlying pneumonia. Follow critical care and ID recommendation. 10/07: Remains on mechanical ventilation. No active bleeding, H&H stable. Critical care following, wean off ventilation as tolerated. 10/08: Patient had another cardiac arrest last night. Remains on mechanical ventilation, update family. Continue supportive care -poor prognosis 10/09: Called patient mother and discussed about patient care and management. Answered all question to best of my knowledge and family satisfaction. Patient remains on mechanical ventilation, cardiac arrest x2 so far. Critically sick, poor prognosis 10/10: remains on mechanical ventilation. h/h stable, no active bleeding. monitor CBC/BMP 10/11: WBC trended up with diarrhea, started on vancomycin po. remains on MV, off pressor, tolerating TF 10/12: remains on MV, off pressor, tolerating TF. called family for update but unable to reach, could not leave message as it was full. cont supportive care, wean off vent as tolerated. 10/13/2020; patient is on mechanical ventilation, tolerating tube feeding. Patient has labored breathing. Neuro was consulted and recommend MRI. Patient is on Precedex. Rectal tube in place. 10/14/2020; patient is on mechanical ventilation, Precedex. Patient had fever and blood culture ordered. Patient is on IV vancomycin per ID recommendation. Neuro consulted and recommend MRI. Continue to monitor. Prognosis is guarded. 10/15/2020; patient is on mechanical ventilation, Precedex. Patient had fever and blood culture ordered. Patient is on IV vancomycin per ID recommendation. Neuro consulted and recommend MRI. Continue to monitor. Prognosis is guarded. 10/17: Remains with C.DIFF and Bactermia, Poor prognosis. No purposeful movement. MRI and EEG discussed with Intensvisit, Continue aggressive BP control. 10/18: Blood pressure better controlled MRI done 10/15 shows mild improvement in edema. We will continue to monitor mother was at bedside yesterday. Nursing documentation trach and PEG discussed with the mother including goals of care. She is still in denial about the gravity of her daughters her condition which is understandable considering her age. Continue aggressive management at this time. Await for bacteremia to clear by ID before placing PICC line. 10/19: Patient for possible PEG and Trach, ID following, repeat cultures remain negative. Poor prognosis 10/20: Pt noted to DVT and SVT in the RUE, Vascular consult and will also obtain Hematology for possible considering changing in Anticoagulation. CONTINUE TO MONITOR H/H and PLT. Family updated by [employer]. Heparin gtt started. Will check CBC and BMP 10/21: Continue supporive care, Diarrhea now resolving, But still with persistent Fever, May need repeat CT/AP per ID, still with profused Encephalopathy 10/22: Continue supportive care, weaning, awaiting repeat Imaging. FOLLOW Fever curve. Enoxparin restarted 10/23: Continue supportive care, wean as tolerated. 10/24; Started on CPAP trial, discussed with pulmonary, still with diarrhea. 10/25: Patients seen and examined, no clinical changes, still with diarrhea. ?meaningful recovery. 10/26: Clinically unchanged, continue CPAP trial, Will discuss with Neurology about re-evaluation, ?Need for repeat CT head. ?PRESS considering initial elevated BP, now stable. 10/27; tracheostomy on vent, weaning trials, vital signs noted, poor prognosis 10/28; unable to wean, tracheostomy on vent. Sepsis. Continue current management. Consults and recommendations noted and appreciated 10/30/2020;Patient on T-piece 5 L of oxygen not in acute distress, noncommunicative 11/02/2020; patient on T-piece 5 L of oxygen 11/03/2020; patient's fever slightly improved low-grade, continue current management, remains on T-piece with 5 L of oxygen 11/04/2020; T-max last 24 hours 100.3 F, new cultures negative to date, monitor off antibiotics Patient is off Levophed, blood pressures reasonable level, tracheostomy on T- piece 3 to 5 L nasal cannula oxygen 11/05/2020; tracheostomy on T-piece patient remains on 5 L of nasal cannula oxygen, unresponsive severe hypoxic brain injury I called patient's mother Ms. Pamela Bassett as well as patient's spouse Mr. Danilo Dimas at [phone] unable to reach them Left voicemail on Ms. Pamela Bassettz phone and encouraged him to call back 11/06/2020; I tried to call again today Ms. Pamela Bassett to discuss patient's condition and treatment plan and update consultants recommendations and patient's prognosis., unable to reach her 11/10/2020; family conference was held by case management yesterday 11/09/2020, family decided and agreed for SNF placement 11/11/2020; patient seen and examined, clinically no change tracheostomy on 5 L of nasal cannula oxygen, hemodynamically and clinically stable for discharge To LTAC versus SNF, DC planning per case management 11/12/2020; clinically no change, continue current management, DC planning per case management possible SNF placement 11/13/2020; patient is receiving herpes flareup treatment per ID 11/14/2020; clinically no change, awaiting SNF placement 11/15/2020; clinically no change, tracheostomy on T-piece on 5 L oxygen, awaiting placement The high probability of a clinically significant, sudden or life threatening deterioration of the [MULTIPLE ORGAN] system(s) required my full and direct attention, intervention and personal management. The aggregate critical care time was [32] minutes. This time is in addition to time spent performing reported procedures but includes the following: [X] Data Review and interpretation [X] Patient assessment and monitoring of vital signs [X] Documentation [X] Medication orders and management History Interval history: I have seen and examined the patient in ICU this morning Patient's chart and medications reviewed Patient remains noncommunicative, and encephalopathic Tracheostomy on T-piece, requiring 5 L of oxygen Patient is slightly restless Vital signs noted Hospitalist Physical - Constitutional Vitals: Temp Pulse Resp BP Pulse Ox 98.8 F 102 H 18 119/64 100 11/15/20 03:36 11/15/20 12:00 11/15/20 12:00 11/15/20 12:00 11/15/20 12:00 General appearance: Present: no acute distress, well-nourished, obese, other (Patient is restless) - EENT Eyes: Present: PERRL, EOM intact - Neck Neck: Present: supple, other (Tracheostomy on T-piece) - Respiratory Respiratory effort: normal Respiratory: bilateral: diminished, rhonchi, negative: rales, wheezing - Cardiovascular Rhythm: regular Heart Sounds: Present: S1 & S2 - Extremities Extremities: no ischemia Extremity abnormal: edema - Abdominal General gastrointestinal: soft, non-tender, non-distended, normal bowel sounds, other (PEG in place) - Integumentary Integumentary: Present: clear, warm - Psychiatric Psychiatric: other (Noncommunicative) - Neurologic Neurologic: other (Noncommunicative) HEART Score - HEART Score Age: < 45 Risk factors: 1-2 risk factors - Critical Actions Critical Actions: >7 pts:50-65% risk of adverse cardiac event. Early invasive measures Results - Labs CBC & Chem 7: 11/07/20 04:44 11/13/20 10:05 Labs: Laboratory Last Values WBC 10.2 K/mm3 (4.5-11.0) 11/07/20 04:44 RBC 3.88 M/mm3 (3.65-5.03) 11/07/20 04:44 Hgb 11.0 gm/dl (10.1-14.3) 11/07/20 04:44 Hgb Comment See scanned result 10/04/20 Unknown Hct 32.6 % (30.3-42.9) 11/07/20 04:44 MCV 84 fl (79-97) 11/07/20 04:44 MCH 28 pg (28-32) 11/07/20 04:44 MCHC 34 % (30-34) 11/07/20 04:44 RDW 16.6 % (13.2-15.2) H 11/07/20 04:44 Plt Count 259 K/mm3 (140-440) 11/07/20 04:44 Lymph % (Auto) 15.2 % (13.4-35.0) 11/07/20 04:44 [place] % (Auto) 13.1 % (0.0-7.3) H 11/07/20 04:44 Eos % (Auto) 2.5 % (0.0-4.3) 11/07/20 04:44 Baso % (Auto) 0.6 % (0.0-1.8) 11/07/20 04:44 Lymph # (Auto) 1.6 K/mm3 (1.2-5.4) 11/07/20 04:44 [place] # (Auto) 1.3 K/mm3 (0.0-0.8) H 11/07/20 04:44 Eos # (Auto) 0.3 K/mm3 (0.0-0.4) 11/07/20 04:44 Baso # (Auto) 0.1 K/mm3 (0.0-0.1) 11/07/20 04:44 Add Manual Diff Complete 10/29/20 07:56 Total Counted 100 10/29/20 07:56 Seg Neutrophils % 68.6 % (40.0-70.0) 11/07/20 04:44 Seg Neuts % (Manual) 80.0 % (40.0-70.0) H 10/29/20 07:56 Band Neutrophils % 2.0 % 10/15/20 05:50 Lymphocytes % (Manual) 15.0 % (13.4-35.0) 10/29/20 07:56 Reactive Lymphs % (Man) 1.0 % 10/02/20 12:18 Monocytes % (Manual) 4.0 % (0.0-7.3) 10/29/20 07:56 Eosinophils % (Manual) 1.0 % (0.0-4.3) 10/29/20 07:56 Myelocytes % 2.0 % 10/02/20 13:05 Metamyelocytes % 1.0 % 10/14/20 04:00 Nucleated RBC % Not Reportable 10/29/20 07:56 Seg Neutrophils # 7.0 K/mm3 (1.8-7.7) 11/07/20 04:44 Seg Neutrophils # Man 10.9 K/mm3 (1.8-7.7) H 10/29/20 07:56 Band Neutrophils # 0.0 K/mm3 10/29/20 07:56 Lymphocytes # (Manual) 2.0 K/mm3 (1.2-5.4) 10/29/20 07:56 Abs React Lymphs (Man) 0.0 K/mm3 10/29/20 07:56 Monocytes # (Manual) 0.5 K/mm3 (0.0-0.8) 10/29/20 07:56 Eosinophils # (Manual) 0.1 K/mm3 (0.0-0.4) 10/29/20 07:56 Basophils # (Manual) 0.0 K/mm3 (0.0-0.1) 10/29/20 07:56 Metamyelocytes # 0.0 K/mm3 10/29/20 07:56 Myelocytes # 0.0 K/mm3 10/29/20 07:56 Promyelocytes # 0.0 K/mm3 10/29/20 07:56 Blast Cells # 0.0 K/mm3 10/29/20 07:56 WBC Morphology Not Reportable 10/29/20 07:56 Hypersegmented Neuts Not Reportable 10/29/20 07:56 Hyposegmented Neuts Not Reportable 10/29/20 07:56 Hypogranular Neuts Not Reportable 10/29/20 07:56 Smudge Cells Not Reportable 10/29/20 07:56 Toxic Granulation Not Reportable 10/29/20 07:56 Toxic Vacuolation Not Reportable 10/29/20 07:56 Dohle Bodies Not Reportable 10/29/20 07:56 Pelger-Huet Anomaly Not Reportable 10/29/20 07:56 Ester Rods Not Reportable 10/29/20 07:56 Platelet Estimate Consistent w auto 10/29/20 07:56 Clumped Platelets Not Reportable 10/29/20 07:56 Plt Clumps, EDTA Not Reportable 10/29/20 07:56 Large Platelets Few 10/29/20 07:56 Giant Platelets Not Reportable 10/29/20 07:56 Platelet Satelliting Not Reportable 10/29/20 07:56 Plt Morphology Comment Not Reportable 10/29/20 07:56 RBC Morphology Not Reportable 10/29/20 07:56 Dimorphic RBCs Not Reportable 10/29/20 07:56 Polychromasia Rare 10/29/20 07:56 Hypochromasia Few 10/29/20 07:56 Poikilocytosis Not Reportable 10/29/20 07:56 Anisocytosis Not Reportable 10/29/20 07:56 Microcytosis Not Reportable 10/29/20 07:56 Macrocytosis Not Reportable 10/29/20 07:56 Spherocytes Not Reportable 10/29/20 07:56 Pappenheimer Bodies Not Reportable 10/29/20 07:56 Sickle Cells Not Reportable 10/29/20 07:56 Target Cells Few 10/29/20 07:56 Tear Drop Cells Not Reportable 10/29/20 07:56 Ovalocytes Not Reportable 10/29/20 07:56 Stomatocytes Few 10/14/20 04:00 Helmet Cells Not Reportable 10/29/20 07:56 [place] Bodies Not Reportable 10/29/20 07:56 [place] Rings Not Reportable 10/29/20 07:56 Antoine Cells Not Reportable 10/29/20 07:56 Bite Cells Not Reportable 10/29/20 07:56 Crenated Cell Not Reportable 10/29/20 07:56 Elliptocytes Not Reportable 10/29/20 07:56 Acanthocytes (Spur) Not Reportable 10/29/20 07:56 Rouleaux Not Reportable 10/29/20 07:56 Hemoglobin C Crystals Not Reportable 10/29/20 07:56 Schistocytes Not Reportable 10/29/20 07:56 Malaria parasites Not Reportable 10/29/20 07:56 Sickle Cell Solubility See scanned result 10/04/20 Unknown Hemoglobin A See scanned result 10/04/20 Unknown Hemoglobin A2 See scanned result 10/04/20 Unknown Hemoglobin A2 Prime See scanned result 10/04/20 Unknown Hemoglobin C See scanned result 10/04/20 Unknown Hemoglobin D See scanned result 10/04/20 Unknown Hemoglobin E See scanned result 10/04/20 Unknown Hgb F Diffential Stain See scanned result 10/04/20 Unknown Hemoglobin F Quant See scanned result 10/04/20 Unknown Hemoglobin G See scanned result 10/04/20 Unknown Hemoglobin S See scanned result 10/04/20 Unknown Hemoglobin O[place] See scanned result 10/04/20 Unknown Hemoglobin [place] See scanned result 10/04/20 Unknown Hemoglobin Analilia See scanned result 10/04/20 Unknown Variant Hemoglobin See scanned result 10/04/20 Unknown Abnorm Hgb IEF Confirm See scanned result 10/04/20 Unknown Hemoglobin Interpret See scanned result 10/04/20 Unknown Hemoglobinopathy Note See scanned result 10/04/20 Unknown Sharad Bodies Not Reportable 10/29/20 07:56 Hem Pathologist Commnt No 10/29/20 07:56 PT 13.6 Sec. (12.2-14.9) 10/21/20 13:54 INR 1.06 (0.87-1.13) 10/21/20 13:54 APTT 31.6 Sec. (24.2-36.6) 10/03/20 00:40 Fibrinogen 336 mg/dl (211-480) 10/04/20 10:00 D-Dimer 1974.47 ng/mlDDU (0-234) H 11/11/20 13:50 ABG pH 7.459 pH Units (7.350-7.450) H 10/26/20 10:30 POC ABG pCO2 20.7 mmHg (32.0-48.0) L 10/13/20 07:18 ABG pCO2 32.4 mm Hg 10/26/20 10:30 POC ABG pO2 137.9 mmHg (83-108) H 10/13/20 07:18 ABG pO2 112.2 mm Hg (80.0-90.0) H 10/26/20 10:30 POC ABG HCO3 14.8 10/13/20 07:18 ABG HCO3 22.5 mmol/L (20.0-26.0) 10/26/20 10:30 ABG O2 Saturation 98.2 % (95.0-99.0) 10/26/20 10:30 ABG O2 Content 18.5 (0.0-44) 10/26/20 10:30 POC ABG Base Excess -6.9 10/13/20 07:18 ABG Base Excess -0.6 mmol/L (-2.0-3.0) 10/26/20 10:30 ABG Hemoglobin 13.5 gm/dl (12.0-16.0) 10/26/20 10:30 ABG Oxyhemoglobin 98.3 (94-98) H 10/13/20 07:18 ABG Carboxyhemoglobin 1.3 % (0.0-5.0) 10/26/20 10:30 ABG Methemoglobin 0.5 % (0.0-1.5) 10/26/20 10:30 ABG Sodium 135.9 mmol/L (136.0-145.0) L 10/13/20 07:18 ABG Potassium 3.7 mmol/L (3.40-4.50) 10/13/20 07:18 ABG Chloride 111.0 mmol/L (98-107) H 10/13/20 07:18 ABG Glucose 109 mg/dL (65-95) H 10/13/20 07:18 VBG pH 6.949 (7.320-7.420) L* 10/02/20 Unknown Oxyhemoglobin 96.5 % (95.0-99.0) 10/26/20 10:30 Carboxyhemoglobin 0.3 (0.5-1.5) L 10/13/20 07:18 FiO2 25 % 10/26/20 10:30 Sodium 138 mmol/L (137-145) 11/13/20 10:05 Potassium 4.3 mmol/L (3.6-5.0) 11/13/20 10:05 Chloride 101.7 mmol/L (98-107) 11/13/20 10:05 Carbon Dioxide 23 mmol/L (22-30) 11/13/20 10:05 Anion Gap 18 mmol/L 11/13/20 10:05 BUN 14 mg/dL (7-17) 11/13/20 10:05 Creatinine 0.6 mg/dL (0.6-1.2) 11/13/20 10:05 Estimated GFR > 60 ml/min 11/13/20 10:05 BUN/Creatinine Ratio 23 % 11/13/20 10:05 Glucose 114 mg/dL (65-100) H 11/13/20 10:05 POC Glucose 114 mg/dL (70-105) H 11/15/20 11:48 Random Insulin 43.2 uIU/mL (<=19.6) H 11/02/20 19:19 Proinsulin See scanned result 11/02/20 19:19 C-Peptide 6.23 ng/mL (0.80-3.85) H 11/02/20 19:19 Lactic Acid 1.90 mmol/L (0.7-2.0) 10/04/20 22:00 Uric Acid 7.5 mg/dL (3.5-7.6) 10/02/20 13:05 Calcium 9.7 mg/dL (8.4-10.2) 11/13/20 10:05 Ionized Calcium 4.4 mg/dL (4.8-5.6) L 10/07/20 21:00 Phosphorus 4.60 mg/dL (2.5-4.5) H 11/13/20 10:05 Magnesium 2.10 mg/dL (1.7-2.3) 11/13/20 10:05 Total Bilirubin 0.50 mg/dL (0.1-1.2) 11/04/20 05:00 AST 90 units/L (5-40) H 11/04/20 05:00 ALT 36 units/L (7-56) 11/04/20 05:00 Alkaline Phosphatase 122 units/L (35-129) 11/04/20 05:00 Lactate Dehydrogenase 769 units/L (91-180) H 10/02/20 13:05 C-Reactive Protein 0.70 mg/dL (0.00-1.30) 11/11/20 13:50 NT-Pro-B Natriuret Pep 2788 pg/mL (0-450) H 10/04/20 10:00 Total Protein 7.4 g/dL (6.3-8.2) 11/04/20 05:00 Albumin 3.8 g/dL (3.9-5) L 11/04/20 05:00 Albumin/Globulin Ratio 1.1 % 11/04/20 05:00 Procalcitonin < 0.05 ng/mL (<0.15) 11/11/20 13:50 Arterial Blood Glucose 109 mg/dL (65-95) H 10/13/20 07:18 Arterial Blood Ionized Calcium 4.6 mg/dL (4.6-5.3) 10/13/20 07:18 Urine Color Yellow (Yellow) 11/11/20 13:50 Urine Turbidity Cloudy (Clear) 11/11/20 13:50 Urine pH 6.0 (5.0-7.0) 11/11/20 13:50 Ur Specific [place] 1.013 (1.003-1.030) 11/11/20 13:50 Urine Protein 100 mg/dl mg/dL (Negative) 11/11/20 13:50 Urine Glucose (UA) Neg mg/dL (Negative) 11/11/20 13:50 Urine Ketones Neg mg/dL (Negative) 11/11/20 13:50 Urine Blood Mod (Negative) 11/11/20 13:50 Urine Nitrite Pos (Negative) 11/11/20 13:50 Urine Bilirubin Neg (Negative) 11/11/20 13:50 Urine Urobilinogen 2.0 mg/dL (<2.0) 11/11/20 13:50 Ur Leukocyte Esterase Lg (Negative) 11/11/20 13:50 Urine WBC (Auto) > 182.0 /HPF (0.0-6.0) H 11/11/20 13:50 Urine RBC (Auto) > 182.0 /HPF (0.0-6.0) 11/11/20 13:50 U Epithel Cells (Auto) 1.0 /HPF (0-13.0) 11/11/20 13:50 Urine Bacteria (Auto) 4+ /HPF (Negative) 11/11/20 13:50 Urine WBC Clumps 3+ /HPF 11/11/20 13:50 Calcium Oxalate Crystal Few 11/11/20 13:50 Urine Mucus Few /HPF 11/11/20 13:50 Vancomycin Trough 12.6 ug/mL (5.0-20.0) 10/21/20 13:54 Random Vancomycin 10.7 ug/mL (0-40.0) 10/16/20 13:09 Phenytoin 5.7 ug/mL (10.0-20.0) L 10/13/20 07:00 C. difficile Tox (PCR) Positive (Negative) 10/16/20 10:22 Coronavirus (PCR) Negative (Negative) 10/08/20 14:15 Blood Type O POSITIVE 10/02/20 12:50 Antibody Screen Negative 10/02/20 12:50 Crossmatch See Detail 10/02/20 12:50 - Diagnostic Impressions Diagnostic Impressions: Echocardiogram 10/03/20 13:42 Transthoracic Echocardiogram Indication: S/P Cardiac Arrest R/O Cardiomyopathy BP: 133/71 Conclusions *Global left ventricular systolic function is normal. *The estimated ejection fraction is 60-65%. *There is trace of mitral regurgitation. *The right 0heart chambers are both slightly dilated. *There is mild tricuspid regurgitation. *There is mild-moderate pulmonary hypertension. *The right ventricular systolic pressure is calculated at 44 mmHg. *The study quality is technically difficult. Findings Procedure Info: The study quality is technically difficult. The study is technically limited due to patient body habitus. The study was technically limited due to the patient's inability to lay in the left lateral decubitus position. Left Ventricle: The left ventricular chamber size is normal. There is no left ventricular hypertrophy. Global left ventricular systolic function is normal. The estimated ejection fraction is 60-65%. Left Atrium: The left atrial chamber size is normal. Right Ventricle: The right ventricle is slightly dilated. Right Atrium: The right atrium is mildly dilated. Aortic Valve: The aortic valve leaflets are mildly thickened. There is no evidence of aortic regurgitation. There is no evidence of aortic stenosis. Mitral Valve: The mitral valve leaflets are mildly thickened. There is trace of mitral regurgitation. There is no evidence of mitral stenosis. Tricuspid Valve: There is mild tricuspid regurgitation. The right ventricular systolic pressure is calculated at 44 mmHg. There is evidence of mild pulmonary hypertension. Pulmonic Valve: There is trace pulmonic regurgitation. Pericardium: There is no pericardial effusion. Aorta: There is no dilatation of the ascending aorta. There is no dilatation of the aortic root. Venous: The inferior vena cava is dilated. Measurements Chambers 2D Name Value Normal Range IVSd (2D) 1 cm (0.6 - 1.1) LVPWd (2D) 1.01 cm (0.6 - 1.1) LVIDd (2D) 4.58 cm (3.7 - 5.6) LVIDs (2D) 3.17 cm (2 - 3.8) LV FS (2D) 30.93 % - EF Teichholz (2D) 58.66 % - Ao root diameter (2D) 2.94 cm (2 - 3.7) Volumes/Mass Name Value Normal Range LA ESV SP 4CH (A/L) 72.82 ml - LA ESV SP 2CH (A/L) 66.86 ml - LA ESV BP (A/L) 74.49 ml - LA ESV SP 4CH (MOD) 71.03 ml - LA ESV SP 2CH (MOD) 64.3 ml - LV EDV SP 4CH (MOD) 98.82 ml - LV ESV SP 4CH (MOD) 24.8 ml - EF SP 4CH (MOD) 74.9 % - LV EDV SP 2CH (MOD) 86.1 ml - LV ESV SP 2CH (MOD) 36.93 ml - EF SP 2CH (MOD) 57.11 % - LV EDV BP 94.4 ml - LV ESV BP 32.66 ml - BP EF (MOD) 65.4 % - Diastolic/Systolic Function Name Value Normal Range MV E-wave Vmax 1.04 m/sec - MV deceleration time 160.46 msec - MV A-wave Vmax 0.92 m/sec - MV E:A ratio 1.14 ratio - Aortic Valve Name Value Normal Range AV Vmax 2.12 m/sec - AV VTI 22.37 cm - AV peak gradient 17.95 mmHg - AV mean gradient 7.29 mmHg - LVOT diameter 2.01 cm - LVOT Vmax 1.8 m/sec - LVOT VTI 27.17 cm - LVOT peak gradient 12.91 mmHg - LVOT mean gradient 6.83 mmHg - SV LVOT 86.42 ml - ANITA (continuity Vmax) 2.7 cm2 - ANITA (continuity VTI) 3.86 cm2 - Ascending Ao 3.18 cm - Tricuspid Valve Name Value Normal Range TV E-wave Vmax 0.88 m/sec - TR Vmax 3.01 m/sec - TR peak gradient 36.27 mmHg - RAP 8 mmHg - RVSP 44 mmHg - IVC diameter 2.65 cm (1.2 - 2.3) Pulmonic Valve/Qp:Qs Name Value Normal Range PV Vmax 1.22 m/sec - PV peak gradient 5.91 mmHg - RVOT Vmax 0.87 m/sec - RVOT VTI 13.32 cm - RVOT peak gradient 3 mmHg - PV acceleration time 110.37 msec - [place]/IV: Voiding Method External Female Catheter IV Catheter Type [Right Foot] INT / Saline Lock IV Catheter Type [Left Forearm Peripheral IV ] IV Catheter Type [Left Wrist] INT / Saline Lock IV Catheter Type [Right Hand] INT / Saline Lock IV Catheter Type [Right INT / Saline Lock Antecubital] IV Catheter Type [Right Upper Mid-line arm] IV Catheter Type [Left Triple Lumen Cath Internal Jugular] IV Catheter Type [Left Hand] Peripheral IV IV Catheter Type [Left Peripheral IV Antecubital] Active Medications - Current Medications Current Medications: Generic Name Dose Route Start Last Admin Trade Name Freq PRN Reason Stop Dose Admin Acetaminophen 650 mg 10/05/20 16:34 11/15/20 06:17 Acetaminophen 325 Mg/10.15 Ml Oral Liqd Unit Dose FEEDTUBE 650 mg Q6H PRN Administration Non Cardiac Pain or Temp>100.5 Albuterol 2.5 mg 11/05/20 13:03 11/06/20 13:04 Albuterol 2.5 Mg/3 Ml Nebu IH 2.5 mg Q4HRT PRN Administration Shortness Of Breath Lipase/Protease/Amylase 1 each 10/05/20 11:09 Lipase 10,500/Protease 25,000/Amylase 43,750 (Units) Dr Barakat FEEDTUBE PRN PRN For Clogged Feeding Tube Enoxaparin Sodium 40 mg 10/22/20 10:00 11/15/20 09:48 Enoxaparin 40 Mg/0.4 Ml Inj SUB-Q 40 mg DAILY ERINN Administration Protocol Famotidine 20 mg 10/07/20 10:00 11/15/20 09:49 Famotidine 20 Mg Tab PO 20 mg BID ERINN Administration Furosemide 40 mg 10/17/20 10:00 11/15/20 09:49 Furosemide 40 Mg Tab PO 40 mg QDAY ERINN Administration Hydralazine HCl 20 mg 10/07/20 11:49 10/17/20 07:20 Hydralazine 20 Mg/1 Ml Inj IV 20 mg Q6H PRN Administration SBP >170 Hydralazine HCl 50 mg 10/17/20 09:00 11/15/20 06:18 Hydralazine 25 Mg Tab PO 50 mg Q8HR ERINN Administration Hydrocortisone Sodium Succinate 100 mg 11/12/20 14:00 11/15/20 06:17 Hydrocortisone Sod Succ 100 Mg/2 Ml Vial IV 100 mg Q8HR ERINN Administration Dextrose 1,000 mls @ 75 mls/hr 10/13/20 11:00 11/14/20 11:54 D10w IV 75 mls/hr DIRECT ERINN Administration Labetalol HCl 300 mg 10/17/20 09:00 11/15/20 09:48 Labetalol 100 Mg Tab PO 300 mg TID ERINN Administration Simple Syrup 15 ml 10/05/20 11:09 Simple Syrup 15 Ml FEEDTUBE PRN PRN Hypoglycemia Simple Syrup 30 ml 10/05/20 11:09 Simple Syrup 15 Ml FEEDTUBE PRN PRN Hypoglycemia Sodium Bicarbonate 325 mg 10/05/20 11:09 11/06/20 10:35 Sodium Bicarbonate 325 Mg Tab FEEDTUBE 325 mg PRN PRN Administration For Clogged Feeding Tube Sodium Bicarbonate 1,300 mg 10/13/20 14:00 11/15/20 09:48 Sodium Bicarbonate 650 Mg Tab PO 1,300 mg TID ERINN Administration Topiramate 50 mg 10/05/20 11:00 11/15/20 09:49 Topiramate Tab 25 Mg Tab PO 50 mg Q12HR ERINN Administration Nutrition/Malnutrition Assess - Dietary Evaluation Nutrition/Malnutrition Findings: Nutrition Notes Start: 10/04/20 11:13 Freq: Status: Active Protocol: Document 11/10/20 11:16 CW (Rec: 11/10/20 11:23 CW [id number]) Co-Sign 11/10/20 11:16 LP Nutrition Notes Initial or Follow up Reassessment Current Diagnosis Acute Kidney Injury, Respiratory Failure Other Pertinent Diagnosis C-Diff, Cardiac arrest, s/p c- sectuion and supracervial hysterectomy Current Diet Jevity 1.2 at 60 ml/hr Labs/Tests reviewed Pertinent Medications lasix D10w at 75ml/hr Height 5 ft 8 in Weight 105.3 kg [place] Body Weight (kg) 63.63 BMI 35.3 Weight change and time frame Wt change noted, pt on lasix Weight Status Morbidly Obese Subjective/Other Information FU for TF tolerance, POC. Pt remains on T-piece with TF running at goal and D10w infusing. Per chart, discussed POC with family and pending SNF placement. Per RN, pt tolerating TF. Percent of energy/protein needs met: 100%/100% Burn Absent Trauma Absent GI Symptoms None Food Allergy Yes Current % PO Negligible Minimum of two criteria No Fluid Accumulation Mild (non-severe) #1 Nutrition Diagnosis Inadequate oral intake Diagnosis Progress(for reassessment Continues documentation) Is patient on ventilator? No Is Patient Ambulatory and/or Out of Bed No REE-([facility]-confined to bed) 2175.612 Kcal/Kg value to use for calculation 16 Approximate Energy Requirements Using 1685 kcal/Kg Calculation Used for Recommendations Kcal/kg Additional Notes Protein needs are 68-85g (0.8- 1g/kg AdjBW 85kg) Fluid needs are 1ml/kcal Nutrition Intervention Change Diet Order: Continue Nutrition Support: Jevity 1.2 at 60ml/hr. Flush 100ml q4h. Kcal 1,782 Protein (gm) 87 Fluid (mL) 1,259 Goal #1 TF tolerance Goal #2 Meet at least 75% of energy and protein needs Anticipated Discharge Needs: Unable to determine at this time Follow-Up By: 11/17/20 Additional Comments FU for TF tolerance, POC
[2020-11-15] MEDS: DEXTROSE 10% IN WATER 1,000 ML IV SCH (14:49)
[2020-11-16] MEDS: ACETAMINOPHEN 325 MG/10.15 ML ORAL LIQD UNIT DOSE FEEDTUBE PRN ×2 (02:49→21:11)
[2020-11-16] MEDS: DEXTROSE 10% IN WATER 1,000 ML IV SCH ×3 (02:50→17:05)
[2020-11-16] MEDS: hydrALAZINE 25 MG TAB PO SCH ×3 (06:38→21:14)
[2020-11-16] MEDS: HYDROCORTISONE SOD SUCC 100 MG/2 ML VIAL IV SCH ×3 (06:38→21:13)
--- NOTE | 2020-11-16 07:34 | Progress Note ---
Assessment and Plan A: POD#45 s/p repeat section at 36 wks secondary to Eclampsia and Cardiac Arrest with Resuscitation POD#45 s/p supracervical abdominal hysterectomy secondary to Uterine Atony, Hemorrhage and Disseminated Intravascular Coagulation (DIC) s/p multiple transfusions of blood products POD #26 s/p Percutaneous Tracheostomy, Fiberoptic Bronchoscopy, PEG tube placement Right Upper Extremity superficial and deep vein thrombosis on Lovenox Hypoglycemia Catheter-associated cystitis s/p IV Ceftriaxone Herpetic outbreak s/p IV Acyclovir -Status post cardiac arrest 10/07/2020 requiring reintubation. -Shock, DIC: Secondary to hemorrhage-stable -Sepsis: followed by ID, abx/imaging recommendations noted -Acute kidney injury: resolved, labs stable -Acute respiratory failure: off vent presently -Preeclampsia: s/p Magnesium P: Continue supportive care per Hospitalist and Forder Operator recommendations All home planning consultant salesperson reports reviewed and appreciated Awaiting placement in longterm care facility Subjective - Subjective Date of service: 11/16/20 Principal diagnosis: Eclampsia/HELLP Syndrome, ADOLPH, DIC; s/p , s/p supracervical hyst Interval history: Late entry. All home planning consultant salesperson recommendations reviewed and greatly appreciated. 30y/o POD #45 s/p emergent section and supracervical hysterectomy for eclampsia and DIC. POD#26 s/p Percutaneous tracheostomy, Fiberoptic bronchoscopy, PEG tube placement. Currently on Lovenox for SVT and DVT in right upper extremity. Recently treated by ID for severe herpetic outbreak and catheter associated cystitis. T max 99.6 at midnight. Pt remains unresponsive to calling her name, with spontaneous blinking of eyes and movement of both lower extremities this morning. Patient reports: no voiding normally, no ambulating normally Objective - Vital Signs Latest vital signs: Vital Signs Temp Pulse Resp BP Pulse Ox Pulse Ox 11/16/20 06:38 82 114/63 11/16/20 05:00 95 H 23 123/69 99 11/16/20 04:30 90 24 123/67 99 11/16/20 04:18 98 H 11/16/20 04:00 98 H 25 H 120/78 100 11/16/20 03:56 99.4 F 11/16/20 03:49 24 11/16/20 03:31 96 H 26 H 115/91 99 11/16/20 03:01 95 H 12 125/89 99 11/16/20 02:49 18 11/16/20 02:30 100 H 17 121/78 99 11/16/20 02:00 87 18 110/86 98 11/16/20 01:30 91 H 19 118/76 99 11/16/20 01:00 100 H 17 101/71 98 11/16/20 00:30 83 18 103/66 96 11/16/20 00:00 93 H 18 115/70 97 11/15/20 23:59 99.6 F 11/15/20 23:30 89 15 104/65 100 11/15/20 23:27 76 19 93/57 98 11/15/20 23:00 82 17 93/57 99 11/15/20 22:31 85 20 97/61 99 11/15/20 22:01 100 H 20 94/47 99 11/15/20 22:00 100 11/15/20 21:30 85 19 106/53 99 11/15/20 21:23 85 118/74 11/15/20 21:00 89 21 118/74 100 11/15/20 20:53 95 H 20 124/74 11/15/20 20:30 98 H 21 124/74 100 11/15/20 20:00 99.4 F 98 H 12 127/40 11/15/20 19:30 103 H 19 135/87 97 11/15/20 19:00 95 H 19 121/87 99 11/15/20 18:30 98 H 14 119/80 100 11/15/20 18:00 98 H 25 H 116/79 100 11/15/20 17:30 100 H 14 112/72 100 11/15/20 17:00 98 H 19 102/63 99 11/15/20 16:30 101 H 26 H 91/58 99 11/15/20 16:08 99 11/15/20 16:00 97.5 F L 91 H 22 102/61 99 11/15/20 15:30 96 H 17 99/56 99 11/15/20 15:00 102 H 16 116/68 100 11/15/20 14:49 101 H 117/77 11/15/20 14:48 95 H 117/77 11/15/20 14:30 100 H 21 117/77 99 11/15/20 14:00 94 H 20 113/69 100 11/15/20 13:30 112 H 16 114/56 100 11/15/20 13:00 110 H 18 114/56 100 11/15/20 12:30 98 H 22 117/77 100 11/15/20 12:00 98.7 F 108 H 18 119/64 99 11/15/20 11:30 90 21 120/68 99 11/15/20 11:00 86 18 120/73 100 11/15/20 10:31 102 H 19 120/90 100 11/15/20 10:00 104 H 15 120/90 100 11/15/20 09:48 101 H 121/90 11/15/20 09:30 105 H 19 121/90 99 11/15/20 09:00 106 H 16 129/87 100 11/15/20 08:30 106 H 21 133/85 100 11/15/20 08:01 100 11/15/20 08:00 98.9 F 90 22 140/83 99 11/15/20 07:47 100 Intake and Output 11/15/20 11/16/20 11/16/20 22:59 06:59 14:59 Intake Total 680 1421.25 Output Total 400 1 Balance 280 1420.25 Intake: IV 901.25 D10w 1,000 ml @ 75 mls/hr 901.25 IV DIRECT [facility] Rx#: [id number] Intake, Free Water 100 Tube Feeding 480 420 Other 100 100 Output: Gastric Drainage 1 Lt Upper Quadrant 1 Urine 400 Void 400 Other: Total, Intake Amount 160 60 Total, Output Amount 400 Voiding Method Incontinent External Female Catheter # Voids Void 2 # Bowel Movements 1 1 - Exam Breasts: Present: deferred Abdomen: Present: soft (obese ) Extremities: Present: edema - Labs Labs: Abnormal lab results 11/15/20 Range/Units 11:48 POC Glucose 114 H (70-105) mg/dL
--- NOTE | 2020-11-16 08:48 | Progress Note ---
Assessment and Plan 30 y/o female with Eclampsia, s/p emergent section with DIC, acute respiratory failure and worsening renal function. 11/16/20: STeroids have not helped so will stop today. Obtain CT scan as instructed to order by Radiology. If tumor present will need transfer to tertiary care center with inpatient endocrinology. Prognosis remains guarded. 11/15/20: Will go to radiology tomorrow morning. Will likely stop stress dose steroids tomorrow as no real improvement in sugars. COntinue Trach collar. Needs rehab. ProInsulin is back at 38.2 11/14/20: Will speak with radiology again on Monday to ask them to help me with the ordering of the scan. Continue stress dose steroids at least through tomorrow. No real change in blood sugars as of yet. 11/13/20: Attempt a trial of stress dose steroids to see if this improves sugar levels. I have called CT 3x but no answer. Will go down there and see if they are able to do a CT of the abdomen with pancreas protocol to observe for insulinoma. Continue supportive care and airway maintenance therapy. 11/12/20: Continue D10. I have reached out to an endocrine physician from an outside hospital who is willing to help me with the work up and possible help w ith diagnosis. 11/11/20: Call labs today about proinuslin. Signed letter for family today. Needs endocrine consult but not available here. 11/10/20: If proinsulin not back by tomorrow will call lab. Once I have all info, will see if I can obtain and endocrine consult via phone to discuss case. Continue supplemental oxygen. Needs PT 11/09/20: Follow up Proinsulin levels. No endocrine consult available here, but will do more research to see if we can find out why she remains D10 dependent. Pulm status is stable. Continue T-piece. Not a candidate for floor given D10 requirement. 11/06/20: No new recs. Will continue to check for outside lab results over the weekend. 11/05/20: Awaiting outside labs to work up hypoglycemia. Will add some PRN albuterol nebs to see if this will help to thin out her secretions. 11/04/20: No changes. No new recs. Awaiting send out labs to help figure out hypoglycemia. 11/03/20: Continue D10. Await send out labs. 11/02/20: Called lab today to ask how to order these send out labs. Continue D10 along with feeds for now. Stopped robinol and no further reports of increased thickness of secretions. given D10 requirement, do not feel com fortable with transition to the floor. 11/01/20: Will stop Robinol as this may be making secretions to thick. Huge risk for mucous plugging given mental state. Continue D10 and waiting on labs from yesterday. LFT's repeated and AST elevated along with alk phos. Both of these were elevated on admission, then resolved and now are elevated again. In current clinical state, not sure what to make of those numbers. They do not help with trying to figure out hypoglycemia and persistent need for D10. Continue IMCU care. 10/31/20: Will order midline for IV team vs peripheral IV's (multiple). Needs access for d10 as we have not been able to figure out why she is so hypoglyemic. Will measure serum insulin levels and C-peptide levels, as well proinsulin. All of these labs are sendouts so will have to call down to ask how to order as they are not coming up in [facility]. Given her requirement for supplemental IV sugar, not a candidate for floor transfer. 10/30/20: Continue step down monitoring for now. If does well the next 24-36 hours, then will consider floor transfer. Really needs to continue PT with PROM. Will speak with CM about options for here now that critical needs are becoming minimal. 10/29/20: Off vent now for 24 hours. Tolerating T-Piece. Will transition to step down for a few days. If does well there, consider transition to floor. Jayson cruz PT. Guarded prognosis. 10/28/20: Daily T-piece trials for as long as tolerated. Attempt to push further daily. OT does not do passive range of motion. Per PT note will do passive range of motion with patient. Guarded prognosis. Hoping to wean off vent and transition to floor. 10/27/20: Continue daily T-piece trials for as long as tolerated. Ok with resting on either PSV or full rate if needed at night but need to strengthen her respiratory muscles. PT/OT if possible. Will transition to step down prior to going to floor to insure stability. 10/26/20: Will obtain ABG today. If good, will attempt on T-piece later. Continue PT/OT. Will speak with CM about possibility of LTACH or nursing facility that can take trached patients. 10/23/20: Daily PSV trials for as long as patient will tolerate. Needs PT/OT consult for passive range of motion. 10/22/20: Will start prolonged PSV trials. Attempt to wean from vent and then transition to floor to see if mental status improves. Continue tube feeds. 10/21/20: Trach and peg placed. No sedation. Restart Lovenox for Upper Ext DVT. Restart feeds when surgery states ok to use PEG. C. Diff treatment per ID. Guarded prognosis. Will be a correction wean. Hopeful to wean off vent at least and then can transfer to floor. 10/20/20: NPO after midnight. DVT study just read from 10/14 on yesterday showing upper ext DVT. Started on Lovenox but need to hold therapy until after surgery. could be source of fevers. No sedation. 10/19/20: Stable BP. Will meet/talk with family at noon over the phone with myself and case management. Need to discuss goals of care and what next steps would be. Patient would need trach and peg and transfer to LTACH if family ok with this. Follow up speciation of GNR's in blood. Has been on Cefepime. Continues therapy for C. Diff. Guarded prognosis. Continue daily PSV trials but not ready for extubation secondary to mental state. 10/18/20: Blood pressure is much better with the addition of meds started on yesterday. Need to have family meeting jesica in regards to goals of care. Continue Daily PSV trials but not ready for extubation. Continue therapy for C. Diff per ID. 10/17/20: CT scan was of no help in regards to fevers. C. Diff is positive and BP now is more uncontrolled despite increasing labetalol. Today will increase to 300 TID. Added TID Hydralazine and added PO lasix given her mild pulmonary htn seen on echo. Spoke with mother over the phone and she requests to come see the patient. Given current circumstances, will allow her to come briefly today and then will speak with her at the bedside. No neurology is available at the time and suspect these will be the majority of her questions. Tolerated PSV briefly yesterday and will do again today but not for extended periods as given her mental state she is not a candidate for extubation. I will also ask the mother about double reamer operator care (trach and peg) when she comes today. Overall prognosis is guarded to poor. If oral meds cannot regulate blood pressure, may need Cardene drip. Continue therapy for C. Diff per ID. Subjective Date of service: 11/16/20 Principal diagnosis: Eclampsia/HELLP Syndrome, ADOLPH, DIC; s/p , s/p supracervical hyst Interval history: no acute events. Pulm status is unchanged and still not able to be weaned from D10. Objective Vital Signs - 12hr 11/15/20 11/15/20 11/15/20 20:53 21:00 21:23 Temperature Pulse Rate 95 H 89 85 Respiratory 20 21 Rate Blood Pressure 124/74 118/74 118/74 O2 Sat by Pulse 100 Oximetry O2 Sat by Pulse Oximetry [ Assessment] 11/15/20 11/15/20 11/15/20 21:30 22:00 22:01 Temperature Pulse Rate 85 100 H Respiratory 19 20 Rate Blood Pressure 106/53 94/47 O2 Sat by Pulse 99 100 99 Oximetry O2 Sat by Pulse Oximetry [ Assessment] 11/15/20 11/15/20 11/15/20 22:31 23:00 23:27 Temperature Pulse Rate 85 82 76 Respiratory 20 17 19 Rate Blood Pressure 97/61 93/57 93/57 O2 Sat by Pulse 99 99 98 Oximetry O2 Sat by Pulse Oximetry [ Assessment] 11/15/20 11/15/20 11/16/20 23:30 23:59 00:00 Temperature 99.6 F Pulse Rate 89 93 H Respiratory 15 18 Rate Blood Pressure 104/65 115/70 O2 Sat by Pulse 100 97 Oximetry O2 Sat by Pulse Oximetry [ Assessment] 11/16/20 11/16/20 11/16/20 00:30 01:00 01:30 Temperature Pulse Rate 83 100 H 91 H Respiratory 18 17 19 Rate Blood Pressure 103/66 101/71 118/76 O2 Sat by Pulse 96 98 99 Oximetry O2 Sat by Pulse Oximetry [ Assessment] 11/16/20 11/16/20 11/16/20 02:00 02:30 02:49 Temperature Pulse Rate 87 100 H Respiratory 18 17 18 Rate Blood Pressure 110/86 121/78 O2 Sat by Pulse 98 99 Oximetry O2 Sat by Pulse Oximetry [ Assessment] 11/16/20 11/16/20 11/16/20 03:01 03:31 03:49 Temperature Pulse Rate 95 H 96 H Respiratory 12 26 H 24 Rate Blood Pressure 125/89 115/91 O2 Sat by Pulse 99 99 Oximetry O2 Sat by Pulse Oximetry [ Assessment] 11/16/20 11/16/20 11/16/20 03:56 04:00 04:18 Temperature 99.4 F Pulse Rate 98 H 98 H Respiratory 25 H Rate Blood Pressure 120/78 O2 Sat by Pulse 100 Oximetry O2 Sat by Pulse Oximetry [ Assessment] 11/16/20 11/16/20 11/16/20 04:30 05:00 05:30 Temperature Pulse Rate 90 95 H 99 H Respiratory 24 23 27 H Rate Blood Pressure 123/67 123/69 125/69 O2 Sat by Pulse 99 99 99 Oximetry O2 Sat by Pulse Oximetry [ Assessment] 11/16/20 11/16/20 11/16/20 06:01 06:31 06:38 Temperature Pulse Rate 77 90 82 Respiratory 17 20 Rate Blood Pressure 119/60 114/63 114/63 O2 Sat by Pulse 99 95 Oximetry O2 Sat by Pulse Oximetry [ Assessment] 11/16/20 11/16/20 11/16/20 07:00 07:30 07:34 Temperature Pulse Rate 89 100 H Respiratory 18 26 H Rate Blood Pressure 115/67 122/74 O2 Sat by Pulse 99 98 Oximetry O2 Sat by Pulse 99 Oximetry [ Assessment] 11/16/20 07:36 Temperature Pulse Rate Respiratory Rate Blood Pressure O2 Sat by Pulse 99 Oximetry O2 Sat by Pulse Oximetry [ Assessment] Constitutional: comatose, other (s/p trach) Eyes: non-icteric ENT: oropharynx moist Neck: other (large in cirumference) Effort: normal Ascultation: Bilateral: clear, diminished breath sounds, rhonchi, other (coarse BS bilaterally) Percussion: Bilateral: not dull Cardiovascular: regular rate and rhythm, other (no mrg) Gastrointestinal: normoactive bowel sounds, soft Extremities: no cyanosis, pink and warm Neurologic: other (unresponsive, not following commands, not tracking) Psychiatric: other (unable to assess) CBC and BMP: 11/07/20 04:44 11/13/20 10:05 ABG, PT/INR, D-dimer: ABG ABG pH 7.459 pH Units (7.350-7.450) H 10/26/20 10:30 POC ABG pCO2 20.7 mmHg (32.0-48.0) L 10/13/20 07:18 ABG pCO2 32.4 mm Hg 10/26/20 10:30 POC ABG pO2 137.9 mmHg (83-108) H 10/13/20 07:18 ABG pO2 112.2 mm Hg (80.0-90.0) H 10/26/20 10:30 POC ABG HCO3 14.8 10/13/20 07:18 ABG O2 Saturation 98.2 % (95.0-99.0) 10/26/20 10:30 PT/INR, D-dimer PT 13.6 Sec. (12.2-14.9) 10/21/20 13:54 INR 1.06 (0.87-1.13) 10/21/20 13:54 D-Dimer 1974.47 ng/mlDDU (0-234) H 11/11/20 13:50 Abnormal lab findings: Abnormal Labs 10/02/20 10/02/20 10/02/20 12:03 12:18 12:18 WBC 14.9 H RBC Hgb 9.1 L Hct MCV MCH 22 L MCHC 28 L RDW 17.6 H Plt Count 102 L Lymph % (Auto) Page % (Auto) Lymph # (Auto) Page # (Auto) Baso # (Auto) Seg Neutrophils % Seg Neuts % (Manual) 36.0 L Lymphocytes % (Manual) 49.0 H Monocytes % (Manual) Nucleated RBC % 6.0 H Seg Neutrophils # Seg Neutrophils # Man Lymphocytes # (Manual) 7.3 H Monocytes # (Manual) PT INR APTT Fibrinogen D-Dimer ABG pH POC ABG pCO2 POC ABG pO2 ABG pO2 ABG HCO3 ABG Base Excess ABG Hemoglobin ABG Oxyhemoglobin ABG Sodium ABG Potassium ABG Chloride ABG Glucose VBG pH Oxyhemoglobin Carboxyhemoglobin Sodium 134 L Potassium Chloride Carbon Dioxide 12 L BUN 6 L Creatinine Glucose 390 H POC Glucose 451 H Random Insulin C-Peptide Lactic Acid Calcium Ionized Calcium Phosphorus Magnesium AST 135 H ALT 85 H Alkaline Phosphatase 172 H Lactate Dehydrogenase 641 H NT-Pro-B Natriuret Pep Total Protein 5.4 L Albumin 2.3 L Arterial Blood Glucose Arterial Blood Ionized Calcium Urine WBC (Auto) Vancomycin Trough Phenytoin Crossmatch 10/02/20 10/02/20 10/02/20 12:50 13:05 13:05 WBC 38.6 H RBC Hgb 8.9 L Hct 29.0 L MCV 73 L MCH 22 L MCHC RDW 17.2 H Plt Count Lymph % (Auto) Page % (Auto) Lymph # (Auto) Page # (Auto) Baso # (Auto) Seg Neutrophils % Seg Neuts % (Manual) Lymphocytes % (Manual) Monocytes % (Manual) Nucleated RBC % 2.0 H Seg Neutrophils # Seg Neutrophils # Man 20.1 H Lymphocytes # (Manual) 10.4 H Monocytes # (Manual) 2.3 H PT INR APTT Fibrinogen D-Dimer ABG pH POC ABG pCO2 POC ABG pO2 ABG pO2 ABG HCO3 ABG Base Excess ABG Hemoglobin ABG Oxyhemoglobin ABG Sodium ABG Potassium ABG Chloride ABG Glucose VBG pH Oxyhemoglobin Carboxyhemoglobin Sodium Potassium Chloride Carbon Dioxide BUN Creatinine Glucose POC Glucose Random Insulin C-Peptide Lactic Acid Calcium Ionized Calcium Phosphorus Magnesium AST 184 H ALT 113 H Alkaline Phosphatase Lactate Dehydrogenase 769 H NT-Pro-B Natriuret Pep Total Protein Albumin Arterial Blood Glucose Arterial Blood Ionized Calcium Urine WBC (Auto) Vancomycin Trough Phenytoin Crossmatch See Detail 10/02/20 10/02/20 10/02/20 16:25 16:35 16:35 WBC RBC Hgb Hct MCV MCH MCHC RDW Plt Count Lymph % (Auto) Page % (Auto) Lymph # (Auto) Page # (Auto) Baso # (Auto) Seg Neutrophils % Seg Neuts % (Manual) Lymphocytes % (Manual) Monocytes % (Manual) Nucleated RBC % Seg Neutrophils # Seg Neutrophils # Man Lymphocytes # (Manual) Monocytes # (Manual) PT INR APTT Fibrinogen D-Dimer ABG pH 7.031 L* POC ABG pCO2 POC ABG pO2 ABG pO2 116.8 H ABG HCO3 12.7 L ABG Base Excess -16.9 L ABG Hemoglobin 7.8 L ABG Oxyhemoglobin ABG Sodium ABG Potassium ABG Chloride ABG Glucose VBG pH Oxyhemoglobin 94.9 L Carboxyhemoglobin Sodium Potassium Chloride Carbon Dioxide BUN Creatinine Glucose 403 H POC Glucose Random Insulin C-Peptide Lactic Acid 11.40 H* Calcium 6.3 L D Ionized Calcium Phosphorus Magnesium AST 70 H ALT Alkaline Phosphatase Lactate Dehydrogenase NT-Pro-B Natriuret Pep Total Protein 1.9 L D Albumin 1.2 L Arterial Blood Glucose Arterial Blood Ionized Calcium Urine WBC (Auto) Vancomycin Trough Phenytoin Crossmatch 10/02/20 10/02/20 10/02/20 18:18 18:18 22:30 WBC 11.5 H RBC 2.06 L Hgb 5.5 L* D Hct 17.3 L* D MCV MCH 27 L MCHC RDW 19.5 H Plt Count 60 L Lymph % (Auto) Page % (Auto) Lymph # (Auto) Page # (Auto) Baso # (Auto) Seg Neutrophils % Seg Neuts % (Manual) Lymphocytes % (Manual) 8.0 L Monocytes % (Manual) 8.0 H Nucleated RBC % 8.0 H Seg Neutrophils # Seg Neutrophils # Man Lymphocytes # (Manual) 0.9 L Monocytes # (Manual) 0.9 H PT 37.1 H INR 3.71 H APTT 135.8 H* Fibrinogen D-Dimer ABG pH 7.067 L* POC ABG pCO2 POC ABG pO2 ABG pO2 183.0 H ABG HCO3 14.1 L ABG Base Excess -15.1 L ABG Hemoglobin 7.7 L ABG Oxyhemoglobin ABG Sodium ABG Potassium ABG Chloride ABG Glucose VBG pH Oxyhemoglobin Carboxyhemoglobin Sodium Potassium Chloride Carbon Dioxide BUN Creatinine Glucose POC Glucose Random Insulin C-Peptide Lactic Acid Calcium Ionized Calcium Phosphorus Magnesium AST ALT Alkaline Phosphatase Lactate Dehydrogenase NT-Pro-B Natriuret Pep Total Protein Albumin Arterial Blood Glucose Arterial Blood Ionized Calcium Urine WBC (Auto) Vancomycin Trough Phenytoin Crossmatch 10/02/20 10/02/20 10/03/20 Unknown Unknown 00:01 WBC RBC Hgb Hct MCV MCH MCHC RDW Plt Count Lymph % (Auto) Page % (Auto) Lymph # (Auto) Page # (Auto) Baso # (Auto) Seg Neutrophils % Seg Neuts % (Manual) Lymphocytes % (Manual) Monocytes % (Manual) Nucleated RBC % Seg Neutrophils # Seg Neutrophils # Man Lymphocytes # (Manual) Monocytes # (Manual) PT 61.1 H INR 6.92 H* APTT 158.7 H* Fibrinogen < 60 L* D-Dimer > 72877 H ABG pH POC ABG pCO2 POC ABG pO2 ABG pO2 ABG HCO3 ABG Base Excess ABG Hemoglobin ABG Oxyhemoglobin ABG Sodium ABG Potassium ABG Chloride ABG Glucose VBG pH 6.949 L* Oxyhemoglobin Carboxyhemoglobin Sodium Potassium Chloride Carbon Dioxide BUN Creatinine Glucose POC Glucose 196 H Random Insulin C-Peptide Lactic Acid Calcium Ionized Calcium Phosphorus Magnesium AST ALT Alkaline Phosphatase Lactate Dehydrogenase NT-Pro-B Natriuret Pep Total Protein Albumin Arterial Blood Glucose Arterial Blood Ionized Calcium Urine WBC (Auto) Vancomycin Trough Phenytoin Crossmatch 10/03/20 10/03/20 10/03/20 00:40 00:40 00:40 WBC RBC Hgb Hct MCV MCH MCHC RDW Plt Count Lymph % (Auto) Page % (Auto) Lymph # (Auto) Page # (Auto) Baso # (Auto) Seg Neutrophils % Seg Neuts % (Manual) Lymphocytes % (Manual) Monocytes % (Manual) Nucleated RBC % Seg Neutrophils # Seg Neutrophils # Man Lymphocytes # (Manual) Monocytes # (Manual) PT 15.1 H INR 1.21 H APTT Fibrinogen D-Dimer ABG pH POC ABG pCO2 POC ABG pO2 ABG pO2 ABG HCO3 ABG Base Excess ABG Hemoglobin ABG Oxyhemoglobin ABG Sodium ABG Potassium ABG Chloride ABG Glucose VBG pH Oxyhemoglobin Carboxyhemoglobin Sodium 136 L Potassium Chloride Carbon Dioxide BUN Creatinine 1.6 H D Glucose 106 H POC Glucose Random Insulin C-Peptide Lactic Acid 5.60 H* Calcium 6.5 L Ionized Calcium Phosphorus Magnesium AST 232 H ALT 104 H Alkaline Phosphatase Lactate Dehydrogenase NT-Pro-B Natriuret Pep Total Protein 3.9 L D Albumin 2.4 L Arterial Blood Glucose Arterial Blood Ionized Calcium Urine WBC (Auto) Vancomycin Trough Phenytoin Crossmatch 10/03/20 10/03/20 10/03/20 02:08 02:08 02:08 WBC 17.6 H RBC 3.27 L Hgb 9.9 L D Hct 29.9 L D MCV MCH MCHC RDW 16.5 H Plt Count 75 L Lymph % (Auto) Page % (Auto) Lymph # (Auto) Page # (Auto) Baso # (Auto) Seg Neutrophils % Seg Neuts % (Manual) 76.0 H Lymphocytes % (Manual) Monocytes % (Manual) Nucleated RBC % 8.0 H Seg Neutrophils # Seg Neutrophils # Man 13.4 H Lymphocytes # (Manual) Monocytes # (Manual) PT INR APTT Fibrinogen D-Dimer ABG pH POC ABG pCO2 POC ABG pO2 ABG pO2 ABG HCO3 ABG Base Excess ABG Hemoglobin ABG Oxyhemoglobin ABG Sodium ABG Potassium ABG Chloride ABG Glucose VBG pH Oxyhemoglobin Carboxyhemoglobin Sodium Potassium Chloride Carbon Dioxide 19 L BUN Creatinine 1.4 H Glucose 306 H POC Glucose Random Insulin C-Peptide Lactic Acid 10.50 H* Calcium 6.4 L Ionized Calcium Phosphorus Magnesium AST ALT Alkaline Phosphatase Lactate Dehydrogenase NT-Pro-B Natriuret Pep Total Protein Albumin Arterial Blood Glucose Arterial Blood Ionized Calcium Urine WBC (Auto) Vancomycin Trough Phenytoin Crossmatch 10/03/20 10/03/20 10/03/20 02:42 03:59 05:31 WBC RBC Hgb Hct MCV MCH MCHC RDW Plt Count Lymph % (Auto) Page % (Auto) Lymph # (Auto) Page # (Auto) Baso # (Auto) Seg Neutrophils % Seg Neuts % (Manual) Lymphocytes % (Manual) Monocytes % (Manual) Nucleated RBC % Seg Neutrophils # Seg Neutrophils # Man Lymphocytes # (Manual) Monocytes # (Manual) PT INR APTT Fibrinogen D-Dimer ABG pH 7.144 L POC ABG pCO2 54.4 H POC ABG pO2 ABG pO2 ABG HCO3 ABG Base Excess ABG Hemoglobin 10.0 L ABG Oxyhemoglobin ABG Sodium ABG Potassium ABG Chloride 108.0 H ABG Glucose 306 H VBG pH Oxyhemoglobin Carboxyhemoglobin Sodium Potassium Chloride Carbon Dioxide BUN Creatinine Glucose POC Glucose 209 H Random Insulin C-Peptide Lactic Acid 9.20 H* Calcium Ionized Calcium Phosphorus Magnesium AST ALT Alkaline Phosphatase Lactate Dehydrogenase NT-Pro-B Natriuret Pep Total Protein Albumin Arterial Blood Glucose 306 H Arterial Blood Ionized Calcium 3.7 L Urine WBC (Auto) Vancomycin Trough Phenytoin Crossmatch 10/03/20 10/03/20 10/03/20 09:00 09:00 09:00 WBC 27.4 H RBC 2.84 L Hgb 8.5 L Hct 25.1 L MCV MCH MCHC RDW 16.1 H Plt Count 72 L Lymph % (Auto) Page % (Auto) Lymph # (Auto) Page # (Auto) Baso # (Auto) Seg Neutrophils % Seg Neuts % (Manual) Lymphocytes % (Manual) 11.0 L Monocytes % (Manual) Nucleated RBC % 3.0 H Seg Neutrophils # Seg Neutrophils # Man 18.4 H Lymphocytes # (Manual) Monocytes # (Manual) 1.9 H PT INR APTT Fibrinogen D-Dimer ABG pH POC ABG pCO2 POC ABG pO2 ABG pO2 ABG HCO3 ABG Base Excess ABG Hemoglobin ABG Oxyhemoglobin ABG Sodium ABG Potassium ABG Chloride ABG Glucose VBG pH Oxyhemoglobin Carboxyhemoglobin Sodium Potassium Chloride Carbon Dioxide BUN Creatinine 1.7 H Glucose 216 H POC Glucose Random Insulin C-Peptide Lactic Acid 9.20 H* Calcium 6.3 L Ionized Calcium Phosphorus Magnesium AST 331 H ALT 171 H Alkaline Phosphatase Lactate Dehydrogenase NT-Pro-B Natriuret Pep Total Protein 3.7 L Albumin 1.9 L Arterial Blood Glucose Arterial Blood Ionized Calcium Urine WBC (Auto) Vancomycin Trough Phenytoin Crossmatch 10/03/20 10/03/20 10/03/20 11:20 11:46 11:50 WBC 28.7 H RBC 2.67 L Hgb 8.0 L Hct 23.7 L MCV MCH MCHC RDW 16.6 H Plt Count 76 L Lymph % (Auto) Page % (Auto) Lymph # (Auto) Page # (Auto) Baso # (Auto) Seg Neutrophils % Seg Neuts % (Manual) Lymphocytes % (Manual) Monocytes % (Manual) Nucleated RBC % Seg Neutrophils # Seg Neutrophils # Man Lymphocytes # (Manual) Monocytes # (Manual) PT INR APTT Fibrinogen D-Dimer ABG pH POC ABG pCO2 POC ABG pO2 ABG pO2 ABG HCO3 ABG Base Excess ABG Hemoglobin ABG Oxyhemoglobin ABG Sodium ABG Potassium ABG Chloride ABG Glucose VBG pH Oxyhemoglobin Carboxyhemoglobin Sodium Potassium Chloride Carbon Dioxide BUN Creatinine Glucose POC Glucose 125 H Random Insulin C-Peptide Lactic Acid 8.00 H* Calcium Ionized Calcium Phosphorus Magnesium AST ALT Alkaline Phosphatase Lactate Dehydrogenase NT-Pro-B Natriuret Pep Total Protein Albumin Arterial Blood Glucose Arterial Blood Ionized Calcium Urine WBC (Auto) Vancomycin Trough Phenytoin Crossmatch 10/03/20 10/04/20 10/04/20 11:50 00:40 00:40 WBC RBC Hgb 6.8 L Hct 19.4 L* MCV MCH MCHC RDW Plt Count 49 L Lymph % (Auto) Page % (Auto) Lymph # (Auto) Page # (Auto) Baso # (Auto) Seg Neutrophils % Seg Neuts % (Manual) Lymphocytes % (Manual) Monocytes % (Manual) Nucleated RBC % Seg Neutrophils # Seg Neutrophils # Man Lymphocytes # (Manual) Monocytes # (Manual) PT INR APTT Fibrinogen D-Dimer ABG pH 7.244 L POC ABG pCO2 POC ABG pO2 ABG pO2 ABG HCO3 ABG Base Excess -4.5 L ABG Hemoglobin 7.3 L ABG Oxyhemoglobin ABG Sodium ABG Potassium ABG Chloride ABG Glucose VBG pH Oxyhemoglobin Carboxyhemoglobin Sodium Potassium Chloride Carbon Dioxide BUN Creatinine Glucose POC Glucose Random Insulin C-Peptide Lactic Acid Calcium Ionized Calcium Phosphorus Magnesium AST ALT Alkaline Phosphatase Lactate Dehydrogenase NT-Pro-B Natriuret Pep Total Protein Albumin Arterial Blood Glucose Arterial Blood Ionized Calcium Urine WBC (Auto) Vancomycin Trough Phenytoin Crossmatch 10/04/20 10/04/20 10/04/20 03:53 10:00 10:00 WBC 14.6 H RBC 2.57 L Hgb 7.6 L Hct 22.5 L MCV MCH MCHC RDW 15.8 H Plt Count 38 L Lymph % (Auto) 7.7 L Page % (Auto) Lymph # (Auto) 1.1 L Page # (Auto) 0.9 H Baso # (Auto) Seg Neutrophils % 85.6 H Seg Neuts % (Manual) Lymphocytes % (Manual) Monocytes % (Manual) Nucleated RBC % Seg Neutrophils # 12.5 H Seg Neutrophils # Man Lymphocytes # (Manual) Monocytes # (Manual) PT INR APTT Fibrinogen D-Dimer ABG pH POC ABG pCO2 POC ABG pO2 110.6 H ABG pO2 ABG HCO3 ABG Base Excess ABG Hemoglobin 6.7 L ABG Oxyhemoglobin ABG Sodium 132.0 L ABG Potassium ABG Chloride ABG Glucose 111 H VBG pH Oxyhemoglobin Carboxyhemoglobin Sodium 134 L D Potassium Chloride 97.6 L Carbon Dioxide BUN Creatinine 1.7 H Glucose POC Glucose Random Insulin C-Peptide Lactic Acid Calcium 6.3 L Ionized Calcium Phosphorus Magnesium AST 203 H ALT 81 H Alkaline Phosphatase Lactate Dehydrogenase NT-Pro-B Natriuret Pep Total Protein 3.9 L Albumin 2.3 L Arterial Blood Glucose 111 H Arterial Blood Ionized Calcium 3.5 L Urine WBC (Auto) Vancomycin Trough Phenytoin Crossmatch 10/04/20 10/04/20 10/04/20 10:00 10:00 10:14 WBC RBC Hgb Hct MCV MCH MCHC RDW Plt Count Lymph % (Auto) Page % (Auto) Lymph # (Auto) Page # (Auto) Baso # (Auto) Seg Neutrophils % Seg Neuts % (Manual) Lymphocytes % (Manual) Monocytes % (Manual) Nucleated RBC % Seg Neutrophils # Seg Neutrophils # Man Lymphocytes # (Manual) Monocytes # (Manual) PT INR APTT Fibrinogen D-Dimer > 15664 H ABG pH POC ABG pCO2 POC ABG pO2 ABG pO2 ABG HCO3 ABG Base Excess ABG Hemoglobin ABG Oxyhemoglobin ABG Sodium ABG Potassium ABG Chloride ABG Glucose VBG pH Oxyhemoglobin Carboxyhemoglobin Sodium Potassium Chloride Carbon Dioxide BUN Creatinine Glucose POC Glucose Random Insulin C-Peptide Lactic Acid 3.90 H* Calcium Ionized Calcium Phosphorus Magnesium AST ALT Alkaline Phosphatase Lactate Dehydrogenase NT-Pro-B Natriuret Pep 2788 H Total Protein Albumin Arterial Blood Glucose Arterial Blood Ionized Calcium Urine WBC (Auto) Vancomycin Trough Phenytoin Crossmatch 10/04/20 10/04/20 10/04/20 14:00 14:00 18:00 WBC 15.7 H RBC 3.17 L Hgb 9.3 L 9.6 L Hct 27.2 L 28.0 L MCV MCH MCHC RDW 16.9 H Plt Count 41 L Lymph % (Auto) 8.6 L Page % (Auto) Lymph # (Auto) Page # (Auto) 0.9 H Baso # (Auto) Seg Neutrophils % 85.4 H Seg Neuts % (Manual) Lymphocytes % (Manual) Monocytes % (Manual) Nucleated RBC % Seg Neutrophils # 13.4 H Seg Neutrophils # Man Lymphocytes # (Manual) Monocytes # (Manual) PT INR APTT Fibrinogen D-Dimer ABG pH POC ABG pCO2 POC ABG pO2 ABG pO2 ABG HCO3 ABG Base Excess ABG Hemoglobin ABG Oxyhemoglobin ABG Sodium ABG Potassium ABG Chloride ABG Glucose VBG pH Oxyhemoglobin Carboxyhemoglobin Sodium 133 L Potassium Chloride 96.4 L Carbon Dioxide BUN 18 H Creatinine 1.7 H Glucose POC Glucose Random Insulin C-Peptide Lactic Acid Calcium 6.3 L Ionized Calcium Phosphorus Magnesium AST ALT Alkaline Phosphatase Lactate Dehydrogenase NT-Pro-B Natriuret Pep Total Protein Albumin Arterial Blood Glucose Arterial Blood Ionized Calcium Urine WBC (Auto) Vancomycin Trough Phenytoin Crossmatch 10/04/20 10/04/20 10/05/20 18:00 22:00 05:00 WBC 17.6 H RBC 3.34 L Hgb 9.9 L Hct 29.4 L MCV MCH MCHC RDW 17.1 H Plt Count 56 L Lymph % (Auto) 8.5 L Page % (Auto) Lymph # (Auto) Page # (Auto) 1.0 H Baso # (Auto) Seg Neutrophils % 85.1 H Seg Neuts % (Manual) Lymphocytes % (Manual) Monocytes % (Manual) Nucleated RBC % Seg Neutrophils # 15.0 H Seg Neutrophils # Man Lymphocytes # (Manual) Monocytes # (Manual) PT INR APTT Fibrinogen D-Dimer ABG pH POC ABG pCO2 POC ABG pO2 ABG pO2 ABG HCO3 ABG Base Excess ABG Hemoglobin ABG Oxyhemoglobin ABG Sodium ABG Potassium ABG Chloride ABG Glucose VBG pH Oxyhemoglobin Carboxyhemoglobin Sodium 136 L Potassium Chloride Carbon Dioxide BUN 18 H Creatinine 1.7 H Glucose POC Glucose Random Insulin C-Peptide Lactic Acid 2.30 H* Calcium 6.6 L Ionized Calcium Phosphorus Magnesium AST ALT Alkaline Phosphatase Lactate Dehydrogenase NT-Pro-B Natriuret Pep Total Protein Albumin Arterial Blood Glucose Arterial Blood Ionized Calcium Urine WBC (Auto) Vancomycin Trough Phenytoin Crossmatch 10/05/20 10/05/20 10/05/20 05:00 05:00 05:03 WBC RBC Hgb Hct MCV MCH MCHC RDW Plt Count Lymph % (Auto) Page % (Auto) Lymph # (Auto) Page # (Auto) Baso # (Auto) Seg Neutrophils % Seg Neuts % (Manual) Lymphocytes % (Manual) Monocytes % (Manual) Nucleated RBC % Seg Neutrophils # Seg Neutrophils # Man Lymphocytes # (Manual) Monocytes # (Manual) PT INR APTT Fibrinogen D-Dimer ABG pH 7.458 H POC ABG pCO2 POC ABG pO2 ABG pO2 74.3 L ABG HCO3 27.5 H ABG Base Excess 3.4 H ABG Hemoglobin 10.0 L ABG Oxyhemoglobin ABG Sodium ABG Potassium ABG Chloride ABG Glucose VBG pH Oxyhemoglobin 94.9 L Carboxyhemoglobin Sodium Potassium Chloride Carbon Dioxide BUN 19 H Creatinine 1.8 H Glucose POC Glucose Random Insulin C-Peptide Lactic Acid Calcium 6.8 L Ionized Calcium 3.9 L Phosphorus Magnesium AST 225 H ALT 85 H Alkaline Phosphatase Lactate Dehydrogenase NT-Pro-B Natriuret Pep Total Protein 4.5 L Albumin 2.7 L Arterial Blood Glucose Arterial Blood Ionized Calcium Urine WBC (Auto) Vancomycin Trough Phenytoin Crossmatch 10/05/20 10/05/20 10/05/20 10:10 15:00 19:40 WBC RBC Hgb Hct MCV MCH MCHC RDW Plt Count Lymph % (Auto) Page % (Auto) Lymph # (Auto) Page # (Auto) Baso # (Auto) Seg Neutrophils % Seg Neuts % (Manual) Lymphocytes % (Manual) Monocytes % (Manual) Nucleated RBC % Seg Neutrophils # Seg Neutrophils # Man Lymphocytes # (Manual) Monocytes # (Manual) PT INR APTT Fibrinogen D-Dimer ABG pH POC ABG pCO2 POC ABG pO2 ABG pO2 ABG HCO3 ABG Base Excess ABG Hemoglobin ABG Oxyhemoglobin ABG Sodium ABG Potassium ABG Chloride ABG Glucose VBG pH Oxyhemoglobin Carboxyhemoglobin Sodium Potassium 3.5 L Chloride Carbon Dioxide 31 H 32 H BUN 19 H 19 H Creatinine 1.8 H 1.8 H Glucose POC Glucose Random Insulin C-Peptide Lactic Acid Calcium 7.0 L 7.2 L Ionized Calcium Phosphorus Magnesium 2.90 H AST ALT Alkaline Phosphatase Lactate Dehydrogenase NT-Pro-B Natriuret Pep Total Protein Albumin Arterial Blood Glucose Arterial Blood Ionized Calcium Urine WBC (Auto) Vancomycin Trough Phenytoin Crossmatch 10/06/20 10/06/20 10/06/20 01:05 03:12 04:00 WBC 17.1 H RBC 3.47 L Hgb Hct MCV MCH MCHC RDW 17.4 H Plt Count 82 L Lymph % (Auto) 8.3 L Page % (Auto) Lymph # (Auto) Page # (Auto) 1.1 H Baso # (Auto) Seg Neutrophils % 83.8 H Seg Neuts % (Manual) Lymphocytes % (Manual) Monocytes % (Manual) Nucleated RBC % Seg Neutrophils # 14.3 H Seg Neutrophils # Man Lymphocytes # (Manual) Monocytes # (Manual) PT INR APTT Fibrinogen D-Dimer ABG pH 7.474 H POC ABG pCO2 POC ABG pO2 129.5 H ABG pO2 ABG HCO3 ABG Base Excess ABG Hemoglobin 11.4 L ABG Oxyhemoglobin ABG Sodium 131.8 L ABG Potassium ABG Chloride ABG Glucose 103 H VBG pH Oxyhemoglobin Carboxyhemoglobin 0.3 L Sodium Potassium Chloride Carbon Dioxide BUN Creatinine Glucose POC Glucose Random Insulin C-Peptide Lactic Acid Calcium Ionized Calcium Phosphorus Magnesium 3.70 H AST ALT Alkaline Phosphatase Lactate Dehydrogenase NT-Pro-B Natriuret Pep Total Protein Albumin Arterial Blood Glucose 103 H Arterial Blood Ionized Calcium 4.2 L Urine WBC (Auto) Vancomycin Trough Phenytoin Crossmatch 10/06/20 10/06/20 10/06/20 04:00 05:31 08:12 WBC RBC Hgb Hct MCV MCH MCHC RDW Plt Count Lymph % (Auto) Page % (Auto) Lymph # (Auto) Page # (Auto) Baso # (Auto) Seg Neutrophils % Seg Neuts % (Manual) Lymphocytes % (Manual) Monocytes % (Manual) Nucleated RBC % Seg Neutrophils # Seg Neutrophils # Man Lymphocytes # (Manual) Monocytes # (Manual) PT INR APTT Fibrinogen D-Dimer ABG pH POC ABG pCO2 POC ABG pO2 ABG pO2 ABG HCO3 ABG Base Excess ABG Hemoglobin ABG Oxyhemoglobin ABG Sodium ABG Potassium ABG Chloride ABG Glucose VBG pH Oxyhemoglobin Carboxyhemoglobin Sodium Potassium 3.5 L Chloride Carbon Dioxide BUN 19 H Creatinine 1.8 H Glucose 102 H POC Glucose 116 H Random Insulin C-Peptide Lactic Acid Calcium 7.2 L Ionized Calcium Phosphorus Magnesium 5.40 H AST 307 H ALT 137 H Alkaline Phosphatase Lactate Dehydrogenase NT-Pro-B Natriuret Pep Total Protein 4.5 L Albumin 2.6 L Arterial Blood Glucose Arterial Blood Ionized Calcium Urine WBC (Auto) Vancomycin Trough Phenytoin Crossmatch 10/06/20 10/06/20 10/06/20 11:00 11:50 20:13 WBC RBC Hgb Hct MCV MCH MCHC RDW Plt Count Lymph % (Auto) Page % (Auto) Lymph # (Auto) Page # (Auto) Baso # (Auto) Seg Neutrophils % Seg Neuts % (Manual) Lymphocytes % (Manual) Monocytes % (Manual) Nucleated RBC % Seg Neutrophils # Seg Neutrophils # Man Lymphocytes # (Manual) Monocytes # (Manual) PT INR APTT Fibrinogen D-Dimer ABG pH POC ABG pCO2 POC ABG pO2 ABG pO2 ABG HCO3 ABG Base Excess ABG Hemoglobin ABG Oxyhemoglobin ABG Sodium ABG Potassium ABG Chloride ABG Glucose VBG pH Oxyhemoglobin Carboxyhemoglobin Sodium Potassium Chloride Carbon Dioxide BUN Creatinine Glucose POC Glucose 106 H Random Insulin C-Peptide Lactic Acid Calcium Ionized Calcium Phosphorus Magnesium 6.50 H 6.20 H AST ALT Alkaline Phosphatase Lactate Dehydrogenase NT-Pro-B Natriuret Pep Total Protein Albumin Arterial Blood Glucose Arterial Blood Ionized Calcium Urine WBC (Auto) Vancomycin Trough Phenytoin Crossmatch 10/06/20 10/06/20 10/06/20 20:17 22:29 23:57 WBC RBC Hgb Hct MCV MCH MCHC RDW Plt Count Lymph % (Auto) Page % (Auto) Lymph # (Auto) Page # (Auto) Baso # (Auto) Seg Neutrophils % Seg Neuts % (Manual) Lymphocytes % (Manual) Monocytes % (Manual) Nucleated RBC % Seg Neutrophils # Seg Neutrophils # Man Lymphocytes # (Manual) Monocytes # (Manual) PT INR APTT Fibrinogen D-Dimer ABG pH POC ABG pCO2 POC ABG pO2 ABG pO2 ABG HCO3 ABG Base Excess ABG Hemoglobin ABG Oxyhemoglobin ABG Sodium ABG Potassium ABG Chloride ABG Glucose VBG pH Oxyhemoglobin Carboxyhemoglobin Sodium Potassium Chloride Carbon Dioxide BUN Creatinine Glucose POC Glucose 112 H 126 H 133 H Random Insulin C-Peptide Lactic Acid Calcium Ionized Calcium Phosphorus Magnesium AST ALT Alkaline Phosphatase Lactate Dehydrogenase NT-Pro-B Natriuret Pep Total Protein Albumin Arterial Blood Glucose Arterial Blood Ionized Calcium Urine WBC (Auto) Vancomycin Trough Phenytoin Crossmatch 10/07/20 10/07/20 10/07/20 00:35 02:22 03:16 WBC RBC Hgb Hct MCV MCH MCHC RDW Plt Count Lymph % (Auto) Page % (Auto) Lymph # (Auto) Page # (Auto) Baso # (Auto) Seg Neutrophils % Seg Neuts % (Manual) Lymphocytes % (Manual) Monocytes % (Manual) Nucleated RBC % Seg Neutrophils # Seg Neutrophils # Man Lymphocytes # (Manual) Monocytes # (Manual) PT INR APTT Fibrinogen D-Dimer ABG pH POC ABG pCO2 POC ABG pO2 ABG pO2 ABG HCO3 ABG Base Excess ABG Hemoglobin 11.6 L ABG Oxyhemoglobin ABG Sodium ABG Potassium ABG Chloride ABG Glucose 156 H VBG pH Oxyhemoglobin Carboxyhemoglobin 0.3 L Sodium Potassium Chloride Carbon Dioxide BUN Creatinine Glucose POC Glucose 124 H Random Insulin C-Peptide Lactic Acid Calcium Ionized Calcium Phosphorus Magnesium 5.90 H AST ALT Alkaline Phosphatase Lactate Dehydrogenase NT-Pro-B Natriuret Pep Total Protein Albumin Arterial Blood Glucose 156 H Arterial Blood Ionized Calcium 4.2 L Urine WBC (Auto) Vancomycin Trough Phenytoin Crossmatch 10/07/20 10/07/20 10/07/20 04:06 05:45 07:05 WBC 19.2 H RBC 3.57 L Hgb Hct MCV MCH MCHC 35 H RDW 17.1 H Plt Count 129 L Lymph % (Auto) Page % (Auto) Lymph # (Auto) Page # (Auto) Baso # (Auto) Seg Neutrophils % Seg Neuts % (Manual) 94.0 H Lymphocytes % (Manual) 6.0 L Monocytes % (Manual) Nucleated RBC % Seg Neutrophils # Seg Neutrophils # Man 18.0 H Lymphocytes # (Manual) Monocytes # (Manual) PT INR APTT Fibrinogen D-Dimer ABG pH POC ABG pCO2 POC ABG pO2 ABG pO2 ABG HCO3 ABG Base Excess ABG Hemoglobin ABG Oxyhemoglobin ABG Sodium ABG Potassium ABG Chloride ABG Glucose VBG pH Oxyhemoglobin Carboxyhemoglobin Sodium Potassium Chloride Carbon Dioxide BUN Creatinine Glucose POC Glucose 135 H 149 H Random Insulin C-Peptide Lactic Acid Calcium Ionized Calcium Phosphorus Magnesium AST ALT Alkaline Phosphatase Lactate Dehydrogenase NT-Pro-B Natriuret Pep Total Protein Albumin Arterial Blood Glucose Arterial Blood Ionized Calcium Urine WBC (Auto) Vancomycin Trough Phenytoin Crossmatch 10/07/20 10/07/20 10/07/20 07:05 07:05 12:21 WBC RBC Hgb Hct MCV MCH MCHC RDW Plt Count Lymph % (Auto) Page % (Auto) Lymph # (Auto) Page # (Auto) Baso # (Auto) Seg Neutrophils % Seg Neuts % (Manual) Lymphocytes % (Manual) Monocytes % (Manual) Nucleated RBC % Seg Neutrophils # Seg Neutrophils # Man Lymphocytes # (Manual) Monocytes # (Manual) PT INR APTT Fibrinogen D-Dimer ABG pH POC ABG pCO2 POC ABG pO2 ABG pO2 ABG HCO3 ABG Base Excess ABG Hemoglobin ABG Oxyhemoglobin ABG Sodium ABG Potassium ABG Chloride ABG Glucose VBG pH Oxyhemoglobin Carboxyhemoglobin Sodium Potassium Chloride Carbon Dioxide BUN 21 H Creatinine 1.7 H Glucose 171 H POC Glucose 124 H Random Insulin C-Peptide Lactic Acid Calcium 7.4 L Ionized Calcium Phosphorus Magnesium 6.10 H AST 245 H ALT 147 H Alkaline Phosphatase Lactate Dehydrogenase NT-Pro-B Natriuret Pep Total Protein 5.3 L Albumin 2.8 L Arterial Blood Glucose Arterial Blood Ionized Calcium Urine WBC (Auto) Vancomycin Trough Phenytoin Crossmatch 10/07/20 10/07/20 10/07/20 19:52 21:00 21:50 WBC RBC Hgb Hct MCV MCH MCHC RDW Plt Count Lymph % (Auto) Page % (Auto) Lymph # (Auto) Page # (Auto) Baso # (Auto) Seg Neutrophils % Seg Neuts % (Manual) Lymphocytes % (Manual) Monocytes % (Manual) Nucleated RBC % Seg Neutrophils # Seg Neutrophils # Man Lymphocytes # (Manual) Monocytes # (Manual) PT INR APTT Fibrinogen D-Dimer ABG pH POC ABG pCO2 POC ABG pO2 ABG pO2 ABG HCO3 ABG Base Excess ABG Hemoglobin ABG Oxyhemoglobin ABG Sodium ABG Potassium ABG Chloride ABG Glucose VBG pH Oxyhemoglobin Carboxyhemoglobin Sodium Potassium Chloride Carbon Dioxide BUN Creatinine Glucose POC Glucose 193 H 138 H Random Insulin C-Peptide Lactic Acid Calcium Ionized Calcium 4.4 L Phosphorus Magnesium AST ALT Alkaline Phosphatase Lactate Dehydrogenase NT-Pro-B Natriuret Pep Total Protein Albumin Arterial Blood Glucose Arterial Blood Ionized Calcium Urine WBC (Auto) Vancomycin Trough Phenytoin Crossmatch 10/07/20 10/08/20 10/08/20 23:41 04:20 05:30 WBC RBC Hgb Hct MCV MCH MCHC RDW Plt Count Lymph % (Auto) Page % (Auto) Lymph # (Auto) Page # (Auto) Baso # (Auto) Seg Neutrophils % Seg Neuts % (Manual) Lymphocytes % (Manual) Monocytes % (Manual) Nucleated RBC % Seg Neutrophils # Seg Neutrophils # Man Lymphocytes # (Manual) Monocytes # (Manual) PT INR APTT Fibrinogen D-Dimer ABG pH 7.467 H POC ABG pCO2 POC ABG pO2 189.8 H ABG pO2 ABG HCO3 ABG Base Excess ABG Hemoglobin 10.8 L ABG Oxyhemoglobin ABG Sodium ABG Potassium ABG Chloride ABG Glucose 133 H VBG pH Oxyhemoglobin Carboxyhemoglobin Sodium Potassium Chloride Carbon Dioxide BUN Creatinine Glucose POC Glucose 118 H 114 H Random Insulin C-Peptide Lactic Acid Calcium Ionized Calcium Phosphorus Magnesium AST ALT Alkaline Phosphatase Lactate Dehydrogenase NT-Pro-B Natriuret Pep Total Protein Albumin Arterial Blood Glucose 133 H Arterial Blood Ionized Calcium 4.2 L Urine WBC (Auto) Vancomycin Trough Phenytoin Crossmatch 10/08/20 10/08/20 10/08/20 05:43 06:42 06:42 WBC 23.6 H RBC 3.54 L Hgb Hct MCV MCH MCHC RDW 17.8 H Plt Count Lymph % (Auto) Page % (Auto) Lymph # (Auto) Page # (Auto) Baso # (Auto) Seg Neutrophils % Seg Neuts % (Manual) 93.0 H Lymphocytes % (Manual) 3.0 L Monocytes % (Manual) Nucleated RBC % 1.0 H Seg Neutrophils # Seg Neutrophils # Man 21.9 H Lymphocytes # (Manual) 0.7 L Monocytes # (Manual) 0.9 H PT INR APTT Fibrinogen D-Dimer ABG pH POC ABG pCO2 POC ABG pO2 ABG pO2 ABG HCO3 ABG Base Excess ABG Hemoglobin ABG Oxyhemoglobin ABG Sodium ABG Potassium ABG Chloride ABG Glucose VBG pH Oxyhemoglobin Carboxyhemoglobin Sodium Potassium Chloride Carbon Dioxide BUN 28 H Creatinine 1.6 H Glucose 141 H POC Glucose 126 H Random Insulin C-Peptide Lactic Acid Calcium 7.6 L Ionized Calcium Phosphorus Magnesium AST 162 H ALT 103 H Alkaline Phosphatase Lactate Dehydrogenase NT-Pro-B Natriuret Pep Total Protein 5.4 L Albumin 2.7 L Arterial Blood Glucose Arterial Blood Ionized Calcium Urine WBC (Auto) Vancomycin Trough Phenytoin Crossmatch 10/08/20 10/08/20 10/08/20 11:20 16:05 20:14 WBC RBC Hgb Hct MCV MCH MCHC RDW Plt Count Lymph % (Auto) Page % (Auto) Lymph # (Auto) Page # (Auto) Baso # (Auto) Seg Neutrophils % Seg Neuts % (Manual) Lymphocytes % (Manual) Monocytes % (Manual) Nucleated RBC % Seg Neutrophils # Seg Neutrophils # Man Lymphocytes # (Manual) Monocytes # (Manual) PT INR APTT Fibrinogen D-Dimer ABG pH POC ABG pCO2 POC ABG pO2 ABG pO2 ABG HCO3 ABG Base Excess ABG Hemoglobin ABG Oxyhemoglobin ABG Sodium ABG Potassium ABG Chloride ABG Glucose VBG pH Oxyhemoglobin Carboxyhemoglobin Sodium Potassium Chloride Carbon Dioxide BUN Creatinine Glucose POC Glucose 127 H 172 H 147 H Random Insulin C-Peptide Lactic Acid Calcium Ionized Calcium Phosphorus Magnesium AST ALT Alkaline Phosphatase Lactate Dehydrogenase NT-Pro-B Natriuret Pep Total Protein Albumin Arterial Blood Glucose Arterial Blood Ionized Calcium Urine WBC (Auto) Vancomycin Trough Phenytoin Crossmatch 10/08/20 10/08/20 10/09/20 21:27 23:24 02:10 WBC RBC Hgb Hct MCV MCH MCHC RDW Plt Count Lymph % (Auto) Page % (Auto) Lymph # (Auto) Page # (Auto) Baso # (Auto) Seg Neutrophils % Seg Neuts % (Manual) Lymphocytes % (Manual) Monocytes % (Manual) Nucleated RBC % Seg Neutrophils # Seg Neutrophils # Man Lymphocytes # (Manual) Monocytes # (Manual) PT INR APTT Fibrinogen D-Dimer ABG pH POC ABG pCO2 POC ABG pO2 ABG pO2 ABG HCO3 ABG Base Excess ABG Hemoglobin ABG Oxyhemoglobin ABG Sodium ABG Potassium ABG Chloride ABG Glucose VBG pH Oxyhemoglobin Carboxyhemoglobin Sodium Potassium Chloride Carbon Dioxide BUN Creatinine Glucose POC Glucose 140 H 135 H 111 H Random Insulin C-Peptide Lactic Acid Calcium Ionized Calcium Phosphorus Magnesium AST ALT Alkaline Phosphatase Lactate Dehydrogenase NT-Pro-B Natriuret Pep Total Protein Albumin Arterial Blood Glucose Arterial Blood Ionized Calcium Urine WBC (Auto) Vancomycin Trough Phenytoin Crossmatch 10/09/20 10/09/20 10/09/20 03:44 04:39 05:46 WBC 19.7 H RBC 3.51 L Hgb Hct MCV MCH MCHC RDW 17.7 H Plt Count Lymph % (Auto) Page % (Auto) Lymph # (Auto) Page # (Auto) Baso # (Auto) Seg Neutrophils % Seg Neuts % (Manual) 86.0 H Lymphocytes % (Manual) 4.0 L Monocytes % (Manual) 9.0 H Nucleated RBC % Seg Neutrophils # Seg Neutrophils # Man 16.9 H Lymphocytes # (Manual) 0.8 L Monocytes # (Manual) 1.8 H PT INR APTT Fibrinogen D-Dimer ABG pH 7.513 H POC ABG pCO2 POC ABG pO2 33.6 L ABG pO2 ABG HCO3 ABG Base Excess ABG Hemoglobin 11.1 L ABG Oxyhemoglobin 70.2 L ABG Sodium ABG Potassium 3.2 L ABG Chloride 108.0 H ABG Glucose 108 H VBG pH Oxyhemoglobin Carboxyhemoglobin Sodium Potassium Chloride Carbon Dioxide BUN Creatinine Glucose POC Glucose 109 H Random Insulin C-Peptide Lactic Acid Calcium Ionized Calcium Phosphorus Magnesium AST ALT Alkaline Phosphatase Lactate Dehydrogenase NT-Pro-B Natriuret Pep Total Protein Albumin Arterial Blood Glucose 108 H Arterial Blood Ionized Calcium 4.3 L Urine WBC (Auto) Vancomycin Trough Phenytoin Crossmatch 10/09/20 10/10/20 10/10/20 05:46 04:00 04:00 WBC 18.4 H RBC Hgb Hct MCV MCH MCHC RDW 17.5 H Plt Count Lymph % (Auto) 9.8 L Page % (Auto) 8.8 H Lymph # (Auto) Page # (Auto) 1.6 H Baso # (Auto) Seg Neutrophils % 80.0 H Seg Neuts % (Manual) Lymphocytes % (Manual) Monocytes % (Manual) Nucleated RBC % Seg Neutrophils # 14.7 H Seg Neutrophils # Man Lymphocytes # (Manual) Monocytes # (Manual) PT INR APTT Fibrinogen D-Dimer ABG pH POC ABG pCO2 POC ABG pO2 ABG pO2 ABG HCO3 ABG Base Excess ABG Hemoglobin ABG Oxyhemoglobin ABG Sodium ABG Potassium ABG Chloride ABG Glucose VBG pH Oxyhemoglobin Carboxyhemoglobin Sodium 146 H Potassium 3.2 L 2.9 L* Chloride 108.9 H 112.6 H Carbon Dioxide BUN 34 H 28 H Creatinine 1.4 H 1.3 H Glucose 109 H 101 H POC Glucose Random Insulin C-Peptide Lactic Acid Calcium 7.6 L 7.8 L Ionized Calcium Phosphorus Magnesium AST 137 H 122 H ALT 99 H 81 H Alkaline Phosphatase Lactate Dehydrogenase NT-Pro-B Natriuret Pep Total Protein 5.1 L 5.2 L Albumin 2.6 L 2.7 L Arterial Blood Glucose Arterial Blood Ionized Calcium Urine WBC (Auto) Vancomycin Trough Phenytoin Crossmatch 10/10/20 10/10/20 10/11/20 04:42 09:50 00:44 WBC RBC Hgb Hct MCV MCH MCHC RDW Plt Count Lymph % (Auto) Page % (Auto) Lymph # (Auto) Page # (Auto) Baso # (Auto) Seg Neutrophils % Seg Neuts % (Manual) Lymphocytes % (Manual) Monocytes % (Manual) Nucleated RBC % Seg Neutrophils # Seg Neutrophils # Man Lymphocytes # (Manual) Monocytes # (Manual) PT INR APTT Fibrinogen D-Dimer ABG pH 7.534 H POC ABG pCO2 POC ABG pO2 ABG pO2 95.2 H ABG HCO3 ABG Base Excess ABG Hemoglobin 11.3 L ABG Oxyhemoglobin ABG Sodium ABG Potassium ABG Chloride ABG Glucose VBG pH Oxyhemoglobin Carboxyhemoglobin Sodium Potassium Chloride Carbon Dioxide BUN Creatinine Glucose POC Glucose 109 H 106 H Random Insulin C-Peptide Lactic Acid Calcium Ionized Calcium Phosphorus Magnesium AST ALT Alkaline Phosphatase Lactate Dehydrogenase NT-Pro-B Natriuret Pep Total Protein Albumin Arterial Blood Glucose Arterial Blood Ionized Calcium Urine WBC (Auto) Vancomycin Trough Phenytoin Crossmatch 10/11/20 10/11/20 10/11/20 04:00 04:00 06:08 WBC 27.0 H RBC Hgb Hct MCV MCH MCHC RDW 17.7 H Plt Count Lymph % (Auto) 6.3 L Page % (Auto) Lymph # (Auto) Page # (Auto) 1.5 H Baso # (Auto) Seg Neutrophils % 87.1 H Seg Neuts % (Manual) Lymphocytes % (Manual) Monocytes % (Manual) Nucleated RBC % Seg Neutrophils # 23.5 H Seg Neutrophils # Man Lymphocytes # (Manual) Monocytes # (Manual) PT INR APTT Fibrinogen D-Dimer ABG pH POC ABG pCO2 POC ABG pO2 ABG pO2 ABG HCO3 ABG Base Excess ABG Hemoglobin ABG Oxyhemoglobin ABG Sodium ABG Potassium ABG Chloride ABG Glucose VBG pH Oxyhemoglobin Carboxyhemoglobin Sodium Potassium 3.2 L Chloride 110.4 H Carbon Dioxide 19 L BUN 22 H Creatinine Glucose 116 H POC Glucose 107 H Random Insulin C-Peptide Lactic Acid Calcium 7.7 L Ionized Calcium Phosphorus Magnesium 1.60 L AST ALT Alkaline Phosphatase Lactate Dehydrogenase NT-Pro-B Natriuret Pep Total Protein Albumin Arterial Blood Glucose Arterial Blood Ionized Calcium Urine WBC (Auto) Vancomycin Trough Phenytoin Crossmatch 10/11/20 10/11/20 10/12/20 11:41 13:26 03:52 WBC RBC Hgb Hct MCV MCH MCHC RDW Plt Count Lymph % (Auto) Page % (Auto) Lymph # (Auto) Page # (Auto) Baso # (Auto) Seg Neutrophils % Seg Neuts % (Manual) Lymphocytes % (Manual) Monocytes % (Manual) Nucleated RBC % Seg Neutrophils # Seg Neutrophils # Man Lymphocytes # (Manual) Monocytes # (Manual) PT INR APTT Fibrinogen D-Dimer ABG pH POC ABG pCO2 POC ABG pO2 ABG pO2 ABG HCO3 ABG Base Excess ABG Hemoglobin ABG Oxyhemoglobin ABG Sodium ABG Potassium ABG Chloride ABG Glucose VBG pH Oxyhemoglobin Carboxyhemoglobin Sodium Potassium Chloride Carbon Dioxide BUN Creatinine Glucose POC Glucose 116 H 114 H Random Insulin C-Peptide Lactic Acid Calcium Ionized Calcium Phosphorus Magnesium AST ALT Alkaline Phosphatase Lactate Dehydrogenase NT-Pro-B Natriuret Pep Total Protein Albumin Arterial Blood Glucose Arterial Blood Ionized Calcium Urine WBC (Auto) 24.0 H Vancomycin Trough Phenytoin Crossmatch 10/12/20 10/12/20 10/12/20 04:24 14:47 21:33 WBC RBC Hgb Hct MCV MCH MCHC RDW Plt Count Lymph % (Auto) Page % (Auto) Lymph # (Auto) Page # (Auto) Baso # (Auto) Seg Neutrophils % Seg Neuts % (Manual) Lymphocytes % (Manual) Monocytes % (Manual) Nucleated RBC % Seg Neutrophils # Seg Neutrophils # Man Lymphocytes # (Manual) Monocytes # (Manual) PT INR APTT Fibrinogen D-Dimer ABG pH POC ABG pCO2 POC ABG pO2 ABG pO2 ABG HCO3 ABG Base Excess ABG Hemoglobin ABG Oxyhemoglobin ABG Sodium ABG Potassium ABG Chloride ABG Glucose VBG pH Oxyhemoglobin Carboxyhemoglobin Sodium Potassium Chloride 109.9 H Carbon Dioxide 13 L BUN 18 H Creatinine Glucose 119 H POC Glucose 107 H Random Insulin C-Peptide Lactic Acid Calcium 7.6 L Ionized Calcium Phosphorus Magnesium 1.60 L AST ALT Alkaline Phosphatase Lactate Dehydrogenase NT-Pro-B Natriuret Pep Total Protein Albumin Arterial Blood Glucose Arterial Blood Ionized Calcium Urine WBC (Auto) Vancomycin Trough Phenytoin Crossmatch 10/12/20 10/12/20 10/13/20 Unknown Unknown 07:00 WBC 24.3 H RBC 3.38 L Hgb 9.8 L Hct MCV MCH MCHC RDW 18.7 H Plt Count Lymph % (Auto) Page % (Auto) Lymph # (Auto) Page # (Auto) Baso # (Auto) Seg Neutrophils % Seg Neuts % (Manual) 93.5 H Lymphocytes % (Manual) 4.5 L Monocytes % (Manual) Nucleated RBC % Seg Neutrophils # Seg Neutrophils # Man 22.7 H Lymphocytes # (Manual) 1.1 L Monocytes # (Manual) PT INR APTT Fibrinogen D-Dimer ABG pH POC ABG pCO2 POC ABG pO2 ABG pO2 ABG HCO3 ABG Base Excess ABG Hemoglobin ABG Oxyhemoglobin ABG Sodium ABG Potassium ABG Chloride ABG Glucose VBG pH Oxyhemoglobin Carboxyhemoglobin Sodium 135 L D Potassium 3.1 L Chloride Carbon Dioxide 17 L BUN Creatinine Glucose 510 H* POC Glucose Random Insulin C-Peptide Lactic Acid Calcium 7.2 L Ionized Calcium Phosphorus Magnesium AST ALT Alkaline Phosphatase Lactate Dehydrogenase NT-Pro-B Natriuret Pep Total Protein Albumin Arterial Blood Glucose Arterial Blood Ionized Calcium Urine WBC (Auto) Vancomycin Trough Phenytoin 5.7 L Crossmatch 10/13/20 10/13/20 10/13/20 07:00 07:00 07:18 WBC 23.6 H RBC 3.26 L Hgb 9.4 L Hct 28.7 L MCV MCH MCHC RDW 18.3 H Plt Count Lymph % (Auto) Page % (Auto) Lymph # (Auto) Page # (Auto) Baso # (Auto) Seg Neutrophils % Seg Neuts % (Manual) Lymphocytes % (Manual) Monocytes % (Manual) Nucleated RBC % Seg Neutrophils # Seg Neutrophils # Man Lymphocytes # (Manual) Monocytes # (Manual) PT INR APTT Fibrinogen D-Dimer ABG pH 7.473 H POC ABG pCO2 20.7 L POC ABG pO2 137.9 H ABG pO2 ABG HCO3 ABG Base Excess ABG Hemoglobin 11.2 L ABG Oxyhemoglobin 98.3 H ABG Sodium 135.9 L ABG Potassium ABG Chloride 111.0 H ABG Glucose 109 H VBG pH Oxyhemoglobin Carboxyhemoglobin 0.3 L Sodium 135 L Potassium 3.5 L Chloride 109.1 H Carbon Dioxide 18 L BUN Creatinine Glucose POC Glucose Random Insulin C-Peptide Lactic Acid Calcium 7.3 L Ionized Calcium Phosphorus Magnesium 1.60 L AST ALT Alkaline Phosphatase Lactate Dehydrogenase NT-Pro-B Natriuret Pep Total Protein Albumin Arterial Blood Glucose 109 H Arterial Blood Ionized Calcium Urine WBC (Auto) Vancomycin Trough Phenytoin Crossmatch 10/14/20 10/14/20 10/15/20 04:00 04:00 05:50 WBC 28.6 H 23.2 H RBC 3.61 L 3.43 L Hgb 9.9 L Hct 30.0 L MCV MCH MCHC RDW 18.3 H 18.2 H Plt Count Lymph % (Auto) Page % (Auto) Lymph # (Auto) Page # (Auto) Baso # (Auto) Seg Neutrophils % Seg Neuts % (Manual) 88.0 H 90.0 H Lymphocytes % (Manual) 5.0 L 4.0 L Monocytes % (Manual) Nucleated RBC % Seg Neutrophils # Seg Neutrophils # Man 25.2 H 20.9 H Lymphocytes # (Manual) 0.9 L Monocytes # (Manual) 1.4 H 0.9 H PT INR APTT Fibrinogen D-Dimer ABG pH POC ABG pCO2 POC ABG pO2 ABG pO2 ABG HCO3 ABG Base Excess ABG Hemoglobin ABG Oxyhemoglobin ABG Sodium ABG Potassium ABG Chloride ABG Glucose VBG pH Oxyhemoglobin Carboxyhemoglobin Sodium Potassium Chloride 109.9 H Carbon Dioxide 17 L BUN Creatinine Glucose POC Glucose Random Insulin C-Peptide Lactic Acid Calcium Ionized Calcium Phosphorus Magnesium AST ALT Alkaline Phosphatase Lactate Dehydrogenase NT-Pro-B Natriuret Pep Total Protein Albumin Arterial Blood Glucose Arterial Blood Ionized Calcium Urine WBC (Auto) Vancomycin Trough Phenytoin Crossmatch 10/15/20 10/16/20 10/17/20 05:50 11:57 04:57 WBC 15.2 H RBC 3.43 L Hgb Hct MCV MCH MCHC RDW 18.1 H Plt Count Lymph % (Auto) Page % (Auto) Lymph # (Auto) Page # (Auto) Baso # (Auto) Seg Neutrophils % Seg Neuts % (Manual) Lymphocytes % (Manual) Monocytes % (Manual) Nucleated RBC % Seg Neutrophils # Seg Neutrophils # Man Lymphocytes # (Manual) Monocytes # (Manual) PT INR APTT Fibrinogen D-Dimer ABG pH POC ABG pCO2 POC ABG pO2 ABG pO2 ABG HCO3 ABG Base Excess ABG Hemoglobin ABG Oxyhemoglobin ABG Sodium ABG Potassium ABG Chloride ABG Glucose VBG pH Oxyhemoglobin Carboxyhemoglobin Sodium Potassium Chloride 110.3 H Carbon Dioxide 18 L BUN Creatinine Glucose 105 H POC Glucose 111 H Random Insulin C-Peptide Lactic Acid Calcium 8.3 L Ionized Calcium Phosphorus Magnesium AST ALT Alkaline Phosphatase Lactate Dehydrogenase NT-Pro-B Natriuret Pep Total Protein Albumin Arterial Blood Glucose Arterial Blood Ionized Calcium Urine WBC (Auto) Vancomycin Trough Phenytoin Crossmatch 10/17/20 10/17/20 10/18/20 05:25 21:16 01:31 WBC RBC Hgb Hct MCV MCH MCHC RDW Plt Count Lymph % (Auto) Page % (Auto) Lymph # (Auto) Page # (Auto) Baso # (Auto) Seg Neutrophils % Seg Neuts % (Manual) Lymphocytes % (Manual) Monocytes % (Manual) Nucleated RBC % Seg Neutrophils # Seg Neutrophils # Man Lymphocytes # (Manual) Monocytes # (Manual) PT INR APTT Fibrinogen D-Dimer ABG pH POC ABG pCO2 POC ABG pO2 ABG pO2 ABG HCO3 ABG Base Excess ABG Hemoglobin ABG Oxyhemoglobin ABG Sodium ABG Potassium ABG Chloride ABG Glucose VBG pH Oxyhemoglobin Carboxyhemoglobin Sodium Potassium Chloride Carbon Dioxide BUN Creatinine Glucose POC Glucose 107 H 106 H 119 H Random Insulin C-Peptide Lactic Acid Calcium Ionized Calcium Phosphorus Magnesium AST ALT Alkaline Phosphatase Lactate Dehydrogenase NT-Pro-B Natriuret Pep Total Protein Albumin Arterial Blood Glucose Arterial Blood Ionized Calcium Urine WBC (Auto) Vancomycin Trough Phenytoin Crossmatch 10/18/20 10/18/20 10/19/20 05:45 11:23 01:14 WBC RBC Hgb Hct MCV MCH MCHC RDW Plt Count Lymph % (Auto) Page % (Auto) Lymph # (Auto) Page # (Auto) Baso # (Auto) Seg Neutrophils % Seg Neuts % (Manual) Lymphocytes % (Manual) Monocytes % (Manual) Nucleated RBC % Seg Neutrophils # Seg Neutrophils # Man Lymphocytes # (Manual) Monocytes # (Manual) PT INR APTT Fibrinogen D-Dimer ABG pH POC ABG pCO2 POC ABG pO2 ABG pO2 ABG HCO3 ABG Base Excess ABG Hemoglobin ABG Oxyhemoglobin ABG Sodium ABG Potassium ABG Chloride ABG Glucose VBG pH Oxyhemoglobin Carboxyhemoglobin Sodium Potassium Chloride Carbon Dioxide BUN Creatinine Glucose POC Glucose 106 H 115 H 108 H Random Insulin C-Peptide Lactic Acid Calcium Ionized Calcium Phosphorus Magnesium AST ALT Alkaline Phosphatase Lactate Dehydrogenase NT-Pro-B Natriuret Pep Total Protein Albumin Arterial Blood Glucose Arterial Blood Ionized Calcium Urine WBC (Auto) Vancomycin Trough Phenytoin Crossmatch 10/19/20 10/20/20 10/20/20 09:57 05:40 07:59 WBC RBC Hgb Hct MCV MCH MCHC RDW Plt Count Lymph % (Auto) Page % (Auto) Lymph # (Auto) Page # (Auto) Baso # (Auto) Seg Neutrophils % Seg Neuts % (Manual) Lymphocytes % (Manual) Monocytes % (Manual) Nucleated RBC % Seg Neutrophils # Seg Neutrophils # Man Lymphocytes # (Manual) Monocytes # (Manual) PT INR APTT Fibrinogen D-Dimer ABG pH POC ABG pCO2 POC ABG pO2 ABG pO2 ABG HCO3 ABG Base Excess ABG Hemoglobin ABG Oxyhemoglobin ABG Sodium ABG Potassium ABG Chloride ABG Glucose VBG pH Oxyhemoglobin Carboxyhemoglobin Sodium Potassium Chloride Carbon Dioxide BUN Creatinine Glucose 106 H POC Glucose 122 H 109 H Random Insulin C-Peptide Lactic Acid Calcium Ionized Calcium Phosphorus Magnesium AST ALT Alkaline Phosphatase Lactate Dehydrogenase NT-Pro-B Natriuret Pep Total Protein Albumin Arterial Blood Glucose Arterial Blood Ionized Calcium Urine WBC (Auto) Vancomycin Trough Phenytoin Crossmatch 10/20/20 10/20/20 10/21/20 16:52 16:52 13:54 WBC 18.8 H 17.0 H RBC Hgb Hct MCV MCH MCHC RDW 17.7 H 17.8 H Plt Count 547 H 544 H Lymph % (Auto) 11.2 L Page % (Auto) 8.1 H Lymph # (Auto) Page # (Auto) 1.5 H Baso # (Auto) 0.2 H Seg Neutrophils % 78.8 H Seg Neuts % (Manual) Lymphocytes % (Manual) Monocytes % (Manual) Nucleated RBC % Seg Neutrophils # 14.8 H Seg Neutrophils # Man Lymphocytes # (Manual) Monocytes # (Manual) PT INR APTT Fibrinogen D-Dimer ABG pH POC ABG pCO2 POC ABG pO2 ABG pO2 ABG HCO3 ABG Base Excess ABG Hemoglobin ABG Oxyhemoglobin ABG Sodium ABG Potassium ABG Chloride ABG Glucose VBG pH Oxyhemoglobin Carboxyhemoglobin Sodium Potassium Chloride Carbon Dioxide BUN Creatinine Glucose POC Glucose Random Insulin C-Peptide Lactic Acid Calcium Ionized Calcium Phosphorus Magnesium AST ALT Alkaline Phosphatase Lactate Dehydrogenase NT-Pro-B Natriuret Pep Total Protein Albumin Arterial Blood Glucose Arterial Blood Ionized Calcium Urine WBC (Auto) Vancomycin Trough 34.5 H Phenytoin Crossmatch 10/21/20 10/22/20 10/23/20 13:54 07:26 05:34 WBC 18.7 H 13.0 H RBC 3.64 L 3.50 L Hgb Hct 30.0 L MCV MCH MCHC 35 H RDW 17.7 H 17.6 H Plt Count 502 H 503 H Lymph % (Auto) Page % (Auto) Lymph # (Auto) Page # (Auto) Baso # (Auto) Seg Neutrophils % Seg Neuts % (Manual) Lymphocytes % (Manual) Monocytes % (Manual) Nucleated RBC % Seg Neutrophils # Seg Neutrophils # Man Lymphocytes # (Manual) Monocytes # (Manual) PT INR APTT Fibrinogen D-Dimer ABG pH POC ABG pCO2 POC ABG pO2 ABG pO2 ABG HCO3 ABG Base Excess ABG Hemoglobin ABG Oxyhemoglobin ABG Sodium ABG Potassium ABG Chloride ABG Glucose VBG pH Oxyhemoglobin Carboxyhemoglobin Sodium 136 L Potassium Chloride Carbon Dioxide BUN Creatinine Glucose 120 H POC Glucose Random Insulin C-Peptide Lactic Acid Calcium Ionized Calcium Phosphorus Magnesium AST ALT Alkaline Phosphatase Lactate Dehydrogenase NT-Pro-B Natriuret Pep Total Protein Albumin Arterial Blood Glucose Arterial Blood Ionized Calcium Urine WBC (Auto) Vancomycin Trough Phenytoin Crossmatch 10/23/20 10/26/20 10/27/20 05:34 10:30 07:53 WBC 13.6 H RBC 3.38 L Hgb 10.0 L Hct 28.8 L MCV MCH MCHC 35 H RDW 17.6 H Plt Count Lymph % (Auto) Page % (Auto) Lymph # (Auto) Page # (Auto) Baso # (Auto) Seg Neutrophils % Seg Neuts % (Manual) Lymphocytes % (Manual) Monocytes % (Manual) Nucleated RBC % Seg Neutrophils # Seg Neutrophils # Man Lymphocytes # (Manual) Monocytes # (Manual) PT INR APTT Fibrinogen D-Dimer ABG pH 7.459 H POC ABG pCO2 POC ABG pO2 ABG pO2 112.2 H ABG HCO3 ABG Base Excess ABG Hemoglobin ABG Oxyhemoglobin ABG Sodium ABG Potassium ABG Chloride ABG Glucose VBG pH Oxyhemoglobin Carboxyhemoglobin Sodium 135 L Potassium Chloride Carbon Dioxide BUN Creatinine Glucose 105 H POC Glucose Random Insulin C-Peptide Lactic Acid Calcium Ionized Calcium Phosphorus Magnesium AST ALT Alkaline Phosphatase Lactate Dehydrogenase NT-Pro-B Natriuret Pep Total Protein Albumin Arterial Blood Glucose Arterial Blood Ionized Calcium Urine WBC (Auto) Vancomycin Trough Phenytoin Crossmatch 10/27/20 10/27/20 10/28/20 07:53 11:31 05:19 WBC RBC Hgb Hct MCV MCH MCHC RDW Plt Count Lymph % (Auto) Page % (Auto) Lymph # (Auto) Page # (Auto) Baso # (Auto) Seg Neutrophils % Seg Neuts % (Manual) Lymphocytes % (Manual) Monocytes % (Manual) Nucleated RBC % Seg Neutrophils # Seg Neutrophils # Man Lymphocytes # (Manual) Monocytes # (Manual) PT INR APTT Fibrinogen D-Dimer ABG pH POC ABG pCO2 POC ABG pO2 ABG pO2 ABG HCO3 ABG Base Excess ABG Hemoglobin ABG Oxyhemoglobin ABG Sodium ABG Potassium ABG Chloride ABG Glucose VBG pH Oxyhemoglobin Carboxyhemoglobin Sodium Potassium Chloride Carbon Dioxide BUN 20 H Creatinine Glucose 112 H POC Glucose 113 H 112 H Random Insulin C-Peptide Lactic Acid Calcium Ionized Calcium Phosphorus Magnesium AST 83 H ALT Alkaline Phosphatase Lactate Dehydrogenase NT-Pro-B Natriuret Pep Total Protein Albumin 3.8 L Arterial Blood Glucose Arterial Blood Ionized Calcium Urine WBC (Auto) Vancomycin Trough Phenytoin Crossmatch 10/29/20 10/29/20 10/29/20 07:56 07:56 11:37 WBC 13.6 H RBC Hgb Hct MCV MCH MCHC RDW 17.0 H Plt Count Lymph % (Auto) Page % (Auto) Lymph # (Auto) Page # (Auto) Baso # (Auto) Seg Neutrophils % Seg Neuts % (Manual) 80.0 H Lymphocytes % (Manual) Monocytes % (Manual) Nucleated RBC % Seg Neutrophils # Seg Neutrophils # Man 10.9 H Lymphocytes # (Manual) Monocytes # (Manual) PT INR APTT Fibrinogen D-Dimer ABG pH POC ABG pCO2 POC ABG pO2 ABG pO2 ABG HCO3 ABG Base Excess ABG Hemoglobin ABG Oxyhemoglobin ABG Sodium ABG Potassium ABG Chloride ABG Glucose VBG pH Oxyhemoglobin Carboxyhemoglobin Sodium Potassium Chloride Carbon Dioxide BUN Creatinine Glucose POC Glucose 108 H Random Insulin C-Peptide Lactic Acid Calcium Ionized Calcium Phosphorus 4.70 H Magnesium AST ALT Alkaline Phosphatase Lactate Dehydrogenase NT-Pro-B Natriuret Pep Total Protein Albumin Arterial Blood Glucose Arterial Blood Ionized Calcium Urine WBC (Auto) Vancomycin Trough Phenytoin Crossmatch 10/29/20 10/30/20 10/30/20 13:32 12:11 17:19 WBC RBC Hgb Hct MCV MCH MCHC RDW Plt Count Lymph % (Auto) Page % (Auto) Lymph # (Auto) Page # (Auto) Baso # (Auto) Seg Neutrophils % Seg Neuts % (Manual) Lymphocytes % (Manual) Monocytes % (Manual) Nucleated RBC % Seg Neutrophils # Seg Neutrophils # Man Lymphocytes # (Manual) Monocytes # (Manual) PT INR APTT Fibrinogen D-Dimer ABG pH POC ABG pCO2 POC ABG pO2 ABG pO2 ABG HCO3 ABG Base Excess ABG Hemoglobin ABG Oxyhemoglobin ABG Sodium ABG Potassium ABG Chloride ABG Glucose VBG pH Oxyhemoglobin Carboxyhemoglobin Sodium Potassium Chloride Carbon Dioxide BUN Creatinine Glucose POC Glucose 108 H 106 H 107 H Random Insulin C-Peptide Lactic Acid Calcium Ionized Calcium Phosphorus Magnesium AST ALT Alkaline Phosphatase Lactate Dehydrogenase NT-Pro-B Natriuret Pep Total Protein Albumin Arterial Blood Glucose Arterial Blood Ionized Calcium Urine WBC (Auto) Vancomycin Trough Phenytoin Crossmatch 10/31/20 10/31/20 11/01/20 03:20 05:43 04:55 WBC RBC Hgb Hct MCV MCH MCHC RDW Plt Count Lymph % (Auto) Page % (Auto) Lymph # (Auto) Page # (Auto) Baso # (Auto) Seg Neutrophils % Seg Neuts % (Manual) Lymphocytes % (Manual) Monocytes % (Manual) Nucleated RBC % Seg Neutrophils # Seg Neutrophils # Man Lymphocytes # (Manual) Monocytes # (Manual) PT INR APTT Fibrinogen D-Dimer ABG pH POC ABG pCO2 POC ABG pO2 ABG pO2 ABG HCO3 ABG Base Excess ABG Hemoglobin ABG Oxyhemoglobin ABG Sodium ABG Potassium ABG Chloride ABG Glucose VBG pH Oxyhemoglobin Carboxyhemoglobin Sodium Potassium Chloride Carbon Dioxide BUN Creatinine Glucose POC Glucose 108 H 115 H 108 H Random Insulin C-Peptide Lactic Acid Calcium Ionized Calcium Phosphorus Magnesium AST ALT Alkaline Phosphatase Lactate Dehydrogenase NT-Pro-B Natriuret Pep Total Protein Albumin Arterial Blood Glucose Arterial Blood Ionized Calcium Urine WBC (Auto) Vancomycin Trough Phenytoin Crossmatch 11/01/20 11/01/20 11/01/20 05:01 16:47 21:36 WBC RBC Hgb Hct MCV MCH MCHC RDW Plt Count Lymph % (Auto) Page % (Auto) Lymph # (Auto) Page # (Auto) Baso # (Auto) Seg Neutrophils % Seg Neuts % (Manual) Lymphocytes % (Manual) Monocytes % (Manual) Nucleated RBC % Seg Neutrophils # Seg Neutrophils # Man Lymphocytes # (Manual) Monocytes # (Manual) PT INR APTT Fibrinogen D-Dimer ABG pH POC ABG pCO2 POC ABG pO2 ABG pO2 ABG HCO3 ABG Base Excess ABG Hemoglobin ABG Oxyhemoglobin ABG Sodium ABG Potassium ABG Chloride ABG Glucose VBG pH Oxyhemoglobin Carboxyhemoglobin Sodium 135 L Potassium Chloride Carbon Dioxide BUN Creatinine Glucose POC Glucose 116 H 112 H Random Insulin C-Peptide Lactic Acid Calcium Ionized Calcium Phosphorus Magnesium AST 93 H ALT Alkaline Phosphatase 132 H Lactate Dehydrogenase NT-Pro-B Natriuret Pep Total Protein Albumin 3.6 L Arterial Blood Glucose Arterial Blood Ionized Calcium Urine WBC (Auto) Vancomycin Trough Phenytoin Crossmatch 11/02/20 11/02/20 11/02/20 17:45 19:19 19:19 WBC RBC Hgb Hct MCV MCH MCHC RDW Plt Count Lymph % (Auto) Page % (Auto) Lymph # (Auto) Page # (Auto) Baso # (Auto) Seg Neutrophils % Seg Neuts % (Manual) Lymphocytes % (Manual) Monocytes % (Manual) Nucleated RBC % Seg Neutrophils # Seg Neutrophils # Man Lymphocytes # (Manual) Monocytes # (Manual) PT INR APTT Fibrinogen D-Dimer ABG pH POC ABG pCO2 POC ABG pO2 ABG pO2 ABG HCO3 ABG Base Excess ABG Hemoglobin ABG Oxyhemoglobin ABG Sodium ABG Potassium ABG Chloride ABG Glucose VBG pH Oxyhemoglobin Carboxyhemoglobin Sodium Potassium Chloride Carbon Dioxide BUN Creatinine Glucose POC Glucose 107 H Random Insulin 43.2 H C-Peptide 6.23 H Lactic Acid Calcium Ionized Calcium Phosphorus Magnesium AST ALT Alkaline Phosphatase Lactate Dehydrogenase NT-Pro-B Natriuret Pep Total Protein Albumin Arterial Blood Glucose Arterial Blood Ionized Calcium Urine WBC (Auto) Vancomycin Trough Phenytoin Crossmatch 11/03/20 11/04/20 11/04/20 21:49 05:00 05:00 WBC 13.8 H RBC Hgb Hct MCV MCH MCHC RDW 16.6 H Plt Count Lymph % (Auto) 11.8 L Page % (Auto) 11.0 H Lymph # (Auto) Page # (Auto) 1.5 H Baso # (Auto) Seg Neutrophils % 75.1 H Seg Neuts % (Manual) Lymphocytes % (Manual) Monocytes % (Manual) Nucleated RBC % Seg Neutrophils # 10.4 H Seg Neutrophils # Man Lymphocytes # (Manual) Monocytes # (Manual) PT INR APTT Fibrinogen D-Dimer ABG pH POC ABG pCO2 POC ABG pO2 ABG pO2 ABG HCO3 ABG Base Excess ABG Hemoglobin ABG Oxyhemoglobin ABG Sodium ABG Potassium ABG Chloride ABG Glucose VBG pH Oxyhemoglobin Carboxyhemoglobin Sodium Potassium Chloride Carbon Dioxide BUN Creatinine Glucose 112 H POC Glucose 109 H Random Insulin C-Peptide Lactic Acid Calcium Ionized Calcium Phosphorus Magnesium AST 90 H ALT Alkaline Phosphatase Lactate Dehydrogenase NT-Pro-B Natriuret Pep Total Protein Albumin 3.8 L Arterial Blood Glucose Arterial Blood Ionized Calcium Urine WBC (Auto) Vancomycin Trough Phenytoin Crossmatch 11/04/20 11/04/20 11/05/20 06:03 23:47 07:47 WBC RBC Hgb Hct MCV MCH MCHC RDW Plt Count Lymph % (Auto) Page % (Auto) Lymph # (Auto) Page # (Auto) Baso # (Auto) Seg Neutrophils % Seg Neuts % (Manual) Lymphocytes % (Manual) Monocytes % (Manual) Nucleated RBC % Seg Neutrophils # Seg Neutrophils # Man Lymphocytes # (Manual) Monocytes # (Manual) PT INR APTT Fibrinogen D-Dimer ABG pH POC ABG pCO2 POC ABG pO2 ABG pO2 ABG HCO3 ABG Base Excess ABG Hemoglobin ABG Oxyhemoglobin ABG Sodium ABG Potassium ABG Chloride ABG Glucose VBG pH Oxyhemoglobin Carboxyhemoglobin Sodium Potassium Chloride Carbon Dioxide BUN Creatinine Glucose POC Glucose 107 H 121 H 111 H Random Insulin C-Peptide Lactic Acid Calcium Ionized Calcium Phosphorus Magnesium AST ALT Alkaline Phosphatase Lactate Dehydrogenase NT-Pro-B Natriuret Pep Total Protein Albumin Arterial Blood Glucose Arterial Blood Ionized Calcium Urine WBC (Auto) Vancomycin Trough Phenytoin Crossmatch 11/05/20 11/06/20 11/06/20 23:24 17:04 23:36 WBC RBC Hgb Hct MCV MCH MCHC RDW Plt Count Lymph % (Auto) Page % (Auto) Lymph # (Auto) Page # (Auto) Baso # (Auto) Seg Neutrophils % Seg Neuts % (Manual) Lymphocytes % (Manual) Monocytes % (Manual) Nucleated RBC % Seg Neutrophils # Seg Neutrophils # Man Lymphocytes # (Manual) Monocytes # (Manual) PT INR APTT Fibrinogen D-Dimer ABG pH POC ABG pCO2 POC ABG pO2 ABG pO2 ABG HCO3 ABG Base Excess ABG Hemoglobin ABG Oxyhemoglobin ABG Sodium ABG Potassium ABG Chloride ABG Glucose VBG pH Oxyhemoglobin Carboxyhemoglobin Sodium Potassium Chloride Carbon Dioxide BUN Creatinine Glucose POC Glucose 111 H 112 H 108 H Random Insulin C-Peptide Lactic Acid Calcium Ionized Calcium Phosphorus Magnesium AST ALT Alkaline Phosphatase Lactate Dehydrogenase NT-Pro-B Natriuret Pep Total Protein Albumin Arterial Blood Glucose Arterial Blood Ionized Calcium Urine WBC (Auto) Vancomycin Trough Phenytoin Crossmatch 11/07/20 11/07/20 11/07/20 03:33 04:44 04:44 WBC RBC Hgb Hct MCV MCH MCHC RDW 16.6 H Plt Count Lymph % (Auto) Page % (Auto) 13.1 H Lymph # (Auto) Page # (Auto) 1.3 H Baso # (Auto) Seg Neutrophils % Seg Neuts % (Manual) Lymphocytes % (Manual) Monocytes % (Manual) Nucleated RBC % Seg Neutrophils # Seg Neutrophils # Man Lymphocytes # (Manual) Monocytes # (Manual) PT INR APTT Fibrinogen D-Dimer ABG pH POC ABG pCO2 POC ABG pO2 ABG pO2 ABG HCO3 ABG Base Excess ABG Hemoglobin ABG Oxyhemoglobin ABG Sodium ABG Potassium ABG Chloride ABG Glucose VBG pH Oxyhemoglobin Carboxyhemoglobin Sodium Potassium Chloride Carbon Dioxide BUN Creatinine Glucose 103 H POC Glucose 109 H Random Insulin C-Peptide Lactic Acid Calcium Ionized Calcium Phosphorus 5.30 H Magnesium AST ALT Alkaline Phosphatase Lactate Dehydrogenase NT-Pro-B Natriuret Pep Total Protein Albumin Arterial Blood Glucose Arterial Blood Ionized Calcium Urine WBC (Auto) Vancomycin Trough Phenytoin Crossmatch 11/07/20 11/07/20 11/08/20 15:58 23:46 07:30 WBC RBC Hgb Hct MCV MCH MCHC RDW Plt Count Lymph % (Auto) Page % (Auto) Lymph # (Auto) Page # (Auto) Baso # (Auto) Seg Neutrophils % Seg Neuts % (Manual) Lymphocytes % (Manual) Monocytes % (Manual) Nucleated RBC % Seg Neutrophils # Seg Neutrophils # Man Lymphocytes # (Manual) Monocytes # (Manual) PT INR APTT Fibrinogen D-Dimer ABG pH POC ABG pCO2 POC ABG pO2 ABG pO2 ABG HCO3 ABG Base Excess ABG Hemoglobin ABG Oxyhemoglobin ABG Sodium ABG Potassium ABG Chloride ABG Glucose VBG pH Oxyhemoglobin Carboxyhemoglobin Sodium Potassium Chloride Carbon Dioxide BUN Creatinine Glucose POC Glucose 108 H 106 H 109 H Random Insulin C-Peptide Lactic Acid Calcium Ionized Calcium Phosphorus Magnesium AST ALT Alkaline Phosphatase Lactate Dehydrogenase NT-Pro-B Natriuret Pep Total Protein Albumin Arterial Blood Glucose Arterial Blood Ionized Calcium Urine WBC (Auto) Vancomycin Trough Phenytoin Crossmatch 11/08/20 11/08/20 11/09/20 11:48 23:32 17:10 WBC RBC Hgb Hct MCV MCH MCHC RDW Plt Count Lymph % (Auto) Page % (Auto) Lymph # (Auto) Page # (Auto) Baso # (Auto) Seg Neutrophils % Seg Neuts % (Manual) Lymphocytes % (Manual) Monocytes % (Manual) Nucleated RBC % Seg Neutrophils # Seg Neutrophils # Man Lymphocytes # (Manual) Monocytes # (Manual) PT INR APTT Fibrinogen D-Dimer ABG pH POC ABG pCO2 POC ABG pO2 ABG pO2 ABG HCO3 ABG Base Excess ABG Hemoglobin ABG Oxyhemoglobin ABG Sodium ABG Potassium ABG Chloride ABG Glucose VBG pH Oxyhemoglobin Carboxyhemoglobin Sodium Potassium Chloride Carbon Dioxide BUN Creatinine Glucose POC Glucose 110 H 116 H 112 H Random Insulin C-Peptide Lactic Acid Calcium Ionized Calcium Phosphorus Magnesium AST ALT Alkaline Phosphatase Lactate Dehydrogenase NT-Pro-B Natriuret Pep Total Protein Albumin Arterial Blood Glucose Arterial Blood Ionized Calcium Urine WBC (Auto) Vancomycin Trough Phenytoin Crossmatch 11/09/20 11/10/20 11/10/20 21:42 05:49 07:17 WBC RBC Hgb Hct MCV MCH MCHC RDW Plt Count Lymph % (Auto) Page % (Auto) Lymph # (Auto) Page # (Auto) Baso # (Auto) Seg Neutrophils % Seg Neuts % (Manual) Lymphocytes % (Manual) Monocytes % (Manual) Nucleated RBC % Seg Neutrophils # Seg Neutrophils # Man Lymphocytes # (Manual) Monocytes # (Manual) PT INR APTT Fibrinogen D-Dimer ABG pH POC ABG pCO2 POC ABG pO2 ABG pO2 ABG HCO3 ABG Base Excess ABG Hemoglobin ABG Oxyhemoglobin ABG Sodium ABG Potassium ABG Chloride ABG Glucose VBG pH Oxyhemoglobin Carboxyhemoglobin Sodium Potassium Chloride Carbon Dioxide BUN Creatinine Glucose POC Glucose 110 H 108 H 111 H Random Insulin C-Peptide Lactic Acid Calcium Ionized Calcium Phosphorus Magnesium AST ALT Alkaline Phosphatase Lactate Dehydrogenase NT-Pro-B Natriuret Pep Total Protein Albumin Arterial Blood Glucose Arterial Blood Ionized Calcium Urine WBC (Auto) Vancomycin Trough Phenytoin Crossmatch 11/10/20 11/11/20 11/11/20 20:36 04:58 11:56 WBC RBC Hgb Hct MCV MCH MCHC RDW Plt Count Lymph % (Auto) Page % (Auto) Lymph # (Auto) Page # (Auto) Baso # (Auto) Seg Neutrophils % Seg Neuts % (Manual) Lymphocytes % (Manual) Monocytes % (Manual) Nucleated RBC % Seg Neutrophils # Seg Neutrophils # Man Lymphocytes # (Manual) Monocytes # (Manual) PT INR APTT Fibrinogen D-Dimer ABG pH POC ABG pCO2 POC ABG pO2 ABG pO2 ABG HCO3 ABG Base Excess ABG Hemoglobin ABG Oxyhemoglobin ABG Sodium ABG Potassium ABG Chloride ABG Glucose VBG pH Oxyhemoglobin Carboxyhemoglobin Sodium Potassium Chloride Carbon Dioxide BUN Creatinine Glucose POC Glucose 111 H 109 H 109 H Random Insulin C-Peptide Lactic Acid Calcium Ionized Calcium Phosphorus Magnesium AST ALT Alkaline Phosphatase Lactate Dehydrogenase NT-Pro-B Natriuret Pep Total Protein Albumin Arterial Blood Glucose Arterial Blood Ionized Calcium Urine WBC (Auto) Vancomycin Trough Phenytoin Crossmatch 11/11/20 11/11/20 11/11/20 13:50 13:50 15:50 WBC RBC Hgb Hct MCV MCH MCHC RDW Plt Count Lymph % (Auto) Page % (Auto) Lymph # (Auto) Page # (Auto) Baso # (Auto) Seg Neutrophils % Seg Neuts % (Manual) Lymphocytes % (Manual) Monocytes % (Manual) Nucleated RBC % Seg Neutrophils # Seg Neutrophils # Man Lymphocytes # (Manual) Monocytes # (Manual) PT INR APTT Fibrinogen D-Dimer 1974.47 H ABG pH POC ABG pCO2 POC ABG pO2 ABG pO2 ABG HCO3 ABG Base Excess ABG Hemoglobin ABG Oxyhemoglobin ABG Sodium ABG Potassium ABG Chloride ABG Glucose VBG pH Oxyhemoglobin Carboxyhemoglobin Sodium Potassium Chloride Carbon Dioxide BUN Creatinine Glucose POC Glucose 107 H Random Insulin C-Peptide Lactic Acid Calcium Ionized Calcium Phosphorus Magnesium AST ALT Alkaline Phosphatase Lactate Dehydrogenase NT-Pro-B Natriuret Pep Total Protein Albumin Arterial Blood Glucose Arterial Blood Ionized Calcium Urine WBC (Auto) > 182.0 H Vancomycin Trough Phenytoin Crossmatch 11/11/20 11/12/20 11/12/20 23:17 11:33 22:20 WBC RBC Hgb Hct MCV MCH MCHC RDW Plt Count Lymph % (Auto) Page % (Auto) Lymph # (Auto) Page # (Auto) Baso # (Auto) Seg Neutrophils % Seg Neuts % (Manual) Lymphocytes % (Manual) Monocytes % (Manual) Nucleated RBC % Seg Neutrophils # Seg Neutrophils # Man Lymphocytes # (Manual) Monocytes # (Manual) PT INR APTT Fibrinogen D-Dimer ABG pH POC ABG pCO2 POC ABG pO2 ABG pO2 ABG HCO3 ABG Base Excess ABG Hemoglobin ABG Oxyhemoglobin ABG Sodium ABG Potassium ABG Chloride ABG Glucose VBG pH Oxyhemoglobin Carboxyhemoglobin Sodium Potassium Chloride Carbon Dioxide BUN Creatinine Glucose POC Glucose 119 H 111 H 107 H Random Insulin C-Peptide Lactic Acid Calcium Ionized Calcium Phosphorus Magnesium AST ALT Alkaline Phosphatase Lactate Dehydrogenase NT-Pro-B Natriuret Pep Total Protein Albumin Arterial Blood Glucose Arterial Blood Ionized Calcium Urine WBC (Auto) Vancomycin Trough Phenytoin Crossmatch 11/13/20 11/13/20 11/13/20 01:52 07:33 10:05 WBC RBC Hgb Hct MCV MCH MCHC RDW Plt Count Lymph % (Auto) Page % (Auto) Lymph # (Auto) Page # (Auto) Baso # (Auto) Seg Neutrophils % Seg Neuts % (Manual) Lymphocytes % (Manual) Monocytes % (Manual) Nucleated RBC % Seg Neutrophils # Seg Neutrophils # Man Lymphocytes # (Manual) Monocytes # (Manual) PT INR APTT Fibrinogen D-Dimer ABG pH POC ABG pCO2 POC ABG pO2 ABG pO2 ABG HCO3 ABG Base Excess ABG Hemoglobin ABG Oxyhemoglobin ABG Sodium ABG Potassium ABG Chloride ABG Glucose VBG pH Oxyhemoglobin Carboxyhemoglobin Sodium Potassium Chloride Carbon Dioxide BUN Creatinine Glucose 114 H POC Glucose 124 H 106 H Random Insulin C-Peptide Lactic Acid Calcium Ionized Calcium Phosphorus 4.60 H Magnesium AST ALT Alkaline Phosphatase Lactate Dehydrogenase NT-Pro-B Natriuret Pep Total Protein Albumin Arterial Blood Glucose Arterial Blood Ionized Calcium Urine WBC (Auto) Vancomycin Trough Phenytoin Crossmatch 11/13/20 11/13/20 11/14/20 11:50 17:20 05:26 WBC RBC Hgb Hct MCV MCH MCHC RDW Plt Count Lymph % (Auto) Page % (Auto) Lymph # (Auto) Page # (Auto) Baso # (Auto) Seg Neutrophils % Seg Neuts % (Manual) Lymphocytes % (Manual) Monocytes % (Manual) Nucleated RBC % Seg Neutrophils # Seg Neutrophils # Man Lymphocytes # (Manual) Monocytes # (Manual) PT INR APTT Fibrinogen D-Dimer ABG pH POC ABG pCO2 POC ABG pO2 ABG pO2 ABG HCO3 ABG Base Excess ABG Hemoglobin ABG Oxyhemoglobin ABG Sodium ABG Potassium ABG Chloride ABG Glucose VBG pH Oxyhemoglobin Carboxyhemoglobin Sodium Potassium Chloride Carbon Dioxide BUN Creatinine Glucose POC Glucose 113 H 110 H 110 H Random Insulin C-Peptide Lactic Acid Calcium Ionized Calcium Phosphorus Magnesium AST ALT Alkaline Phosphatase Lactate Dehydrogenase NT-Pro-B Natriuret Pep Total Protein Albumin Arterial Blood Glucose Arterial Blood Ionized Calcium Urine WBC (Auto) Vancomycin Trough Phenytoin Crossmatch 11/14/20 11/15/20 11/15/20 23:23 05:07 11:48 WBC RBC Hgb Hct MCV MCH MCHC RDW Plt Count Lymph % (Auto) Page % (Auto) Lymph # (Auto) Page # (Auto) Baso # (Auto) Seg Neutrophils % Seg Neuts % (Manual) Lymphocytes % (Manual) Monocytes % (Manual) Nucleated RBC % Seg Neutrophils # Seg Neutrophils # Man Lymphocytes # (Manual) Monocytes # (Manual) PT INR APTT Fibrinogen D-Dimer ABG pH POC ABG pCO2 POC ABG pO2 ABG pO2 ABG HCO3 ABG Base Excess ABG Hemoglobin ABG Oxyhemoglobin ABG Sodium ABG Potassium ABG Chloride ABG Glucose VBG pH Oxyhemoglobin Carboxyhemoglobin Sodium Potassium Chloride Carbon Dioxide BUN Creatinine Glucose POC Glucose 112 H 115 H 114 H Random Insulin C-Peptide Lactic Acid Calcium Ionized Calcium Phosphorus Magnesium AST ALT Alkaline Phosphatase Lactate Dehydrogenase NT-Pro-B Natriuret Pep Total Protein Albumin Arterial Blood Glucose Arterial Blood Ionized Calcium Urine WBC (Auto) Vancomycin Trough Phenytoin Crossmatch
[2020-11-16] MEDS: SODIUM BICARBONATE 650 MG TAB PO SCH ×3 (10:29→21:01)
[2020-11-16] MEDS: FUROSEMIDE 40 MG TAB PO SCH (10:29)
[2020-11-16] MEDS: TOPIRAMATE TAB 25 MG TAB PO SCH ×2 (10:29→21:14)
[2020-11-16] MEDS: FAMOTIDINE 20 MG TAB PO SCH ×2 (10:29→21:12)
[2020-11-16] MEDS: ENOXAPARIN 40 MG/0.4 ML INJ SUB-Q SCH (10:33)
--- NOTE | 2020-11-16 16:52 | Progress Note ---
Assessment and Plan Assessment and plan: 30 y/o female patient with Eclampsia/help syndrome, s/p emergent section with DIC, hemorrhage, supracervical abdominal hysterectomy, acute respiratory failure , tracheostomy on T-piece with morbid obesity, s/p cardiac arrest 12/08/2019 status post CPR per ACLS, acute hypoxic brain injury Acute kidney injury improved, severe shock requiring pressors, DIC septic shock improved, history of C. difficile colitis completed treatment with vancomycin. Tracheostomy on T-piece, continues to require 5 L of oxygen. Herpetic flareup, ID started treatment with antibiotics --Cardiac arrest; 10/07/2020 ,status post CPR --Acute hypoxic brain injury; Supportive care, closely monitor --Acute hypoxic respiratory failure: Tracheostomy on T-piece , 5 L oxygen, saturating 100% Nebulizers, continue oxygen titrate O2 sats to more than 90% Pulmonary critical following COVID-19 negative C. difficile positive; Patient on contact isolation Completed treatment --Afebrile: Blood, urine, tracheal aspirate cultures New cultures negative to date Monitor off antibiotics Closely monitor --Sepsis; received antibiotics Continue to monitor off antibiotics ID following --COVID-19 test negative; 10/08/2020 --C. difficile colitis test; positive; 10/16/2020 --Acute metabolic encephalopathy --Acute kidney injury; vasomotor nephropathy Resolved, renal function within normal limits, closely monitor --Shock; monitor of pressors Blood pressures reasonable level --DIC; sepsis, septic shock, resolved --History of preeclampsia; / hemorrhage Status post hysterectomy --History of C. difficile colitis; completed oral vancomycin --DVT/SVT and right upper extremity Very poor prognosis, Consults recommendations noted and appreciated We will closely monitor the patient and adjust management as needed Plan of care reviewed with the patient's nurse. Brief history; 30 year old -Sammarinese female CHE 10/25/20 at 36w5d who presents with seizures in triage on 10/02/20. Pt was not able to provide history but per pt's , she presented to the hospital to return a 24 hour urine specimen for analysis. She then suddenly reported that she did not feel good. She was taken to labor and delivery and shortly after arrival, she began seizing. During this time, a code met was called because the patient became hypoxic. She was then noted to be without a pulse. Chest compressions were started immediately, and the patient was emergently taken to the operating room for delivery of the fetus. Off note, This patient has had care at [facility] with comanagement by [facility] since 11 wks complicated by ADHD, morbid obesity, generalized anxiety disorder, panic attacks, chronic narcotic use, fibromyalgia, GERD, Irritable Bowel Syndrome, Migraines, h/o endometrial ablation and ovarian vein embolization, genital herpes, insomnia, LGA fetus, nausea and vomiting, polyhydramnios, quad screen positive for Down's Syndrome, and previous x 3. She is GBS negative. , Patient tracheostomy on ventilatory support, unable to wean, continue supportive care poor prognosis 11:30: Pt brought to L&D triage for evaluation of possible labor. Pt accompanied by her spouse. Pt spouse poor historian; unable to obtain history- allergies at this time. Pt taken from registration to triage area via WC. Pt unresponsive, actively seizing with snorous respirations. wildlife refuge specialist, Kassy, called and requesting assistance. 11:35: Multiple staff at bedside. Pt 02 sat 67% on nonrebreather, unable to read BP . Yifan Theodore CRNA, at bedside for intubation and assistance with IV insertion. INT attempt by multiple RNs unsuccessful at this time. 11:42: Pt being bagged by KORIN, 02% 79%. No pulse palpated, compressions on at this time; bharati young called and Dr. Newberry preparing OR for emergent c/s. 11:44: Continued compressions on stretcher while transporting pt to OR 1. Pt being bagged with jaw thrust manuever in place by KORIN Stringer student. 11:45: Arrival to OR 1. Dr. Newberry and Dr. Portillo present for emergent c/s. Code team arrived for continued care. patient revived and c/s done Patient has been bleeding from C/s site followed by supracervical hysterectomy for severe bleeding, Patient transfused multiple units of PRBC, Patient in DIC. Patient transferred to the ICU Hospital course; 10/03. Patient seen and examined at bedside this morning. Patient is nonre sponsive and mechanically ventilated. On pressors. Labs reviewed-has leukocytosis, anemia, thrombocytopenia, ADOLPH and lactic acidosis. Started on IV antibiotics to cover possible sepsis secondary to DIC. Hematology oncology recommendations appreciated-needs additional cryoprecipitate and FFP. Monitor D-dimer, fibrinogen and frequent labs. Nephrology consulted for lactic acidosis and ADLOPH. 10/04. Remains mechanically ventilated. Butler antibiotics. Labs shows improved acidosis - lactic acid 3.5. Hb drop noted. Getting transfused 2 units PRBCs. Platelet count is ~40k. Continue to monitor labs closely. Critical care team on board. 10/05; xray reviewed, concerning for multifocal infilrate, likely underlying Pneumonia, will add ID consult to assist with management of this critically ill patient, start tube feed, closely monitor renal system 10/06: Resumed care, remains on mechanical ventilation. No active bleeding, H&H stable. Continue to monitor CBC and BMP. Continue IV antibiotic for underlying pneumonia. Follow critical care and ID recommendation. 10/07: Remains on mechanical ventilation. No active bleeding, H&H stable. Critical care following, wean off ventilation as tolerated. 10/08: Patient had another cardiac arrest last night. Remains on mechanical ventilation, update family. Continue supportive care -poor prognosis 10/09: Called patient mother and discussed about patient care and management. Answered all question to best of my knowledge and family satisfaction. Patient remains on mechanical ventilation, cardiac arrest x2 so far. Critically sick, poor prognosis 10/10: remains on mechanical ventilation. h/h stable, no active bleeding. monitor CBC/BMP 10/11: WBC trended up with diarrhea, started on vancomycin po. remains on MV, off pressor, tolerating TF 10/12: remains on MV, off pressor, tolerating TF. called family for update but unable to reach, could not leave message as it was full. cont supportive care, wean off vent as tolerated. 10/13/2020; patient is on mechanical ventilation, tolerating tube feeding. Patient has labored breathing. Neuro was consulted and recommend MRI. Patient is on Precedex. Rectal tube in place. 10/14/2020; patient is on mechanical ventilation, Precedex. Patient had fever and blood culture ordered. Patient is on IV vancomycin per ID recommendation. Neuro consulted and recommend MRI. Continue to monitor. Prognosis is guarded. 10/15/2020; patient is on mechanical ventilation, Precedex. Patient had fever and blood culture ordered. Patient is on IV vancomycin per ID recommendation. Neuro consulted and recommend MRI. Continue to monitor. Prognosis is guarded. 10/17: Remains with C.DIFF and Bactermia, Poor prognosis. No purposeful movement. MRI and EEG discussed with Intensvisit, Continue aggressive BP control. 10/18: Blood pressure better controlled MRI done 10/15 shows mild improvement in edema. We will continue to monitor mother was at bedside yesterday. Nursing documentation trach and PEG discussed with the mother including goals of care. She is still in denial about the gravity of her daughters her condition which is understandable considering her age. Continue aggressive management at this time. Await for bacteremia to clear by ID before placing PICC line. 10/19: Patient for possible PEG and Trach, ID following, repeat cultures remain negative. Poor prognosis 10/20: Pt noted to DVT and SVT in the RUE, Vascular consult and will also obtain Hematology for possible considering changing in Anticoagulation. CONTINUE TO MONITOR H/H and PLT. Family updated by [employer]. Heparin gtt started. Will check CBC and BMP 10/21: Continue supporive care, Diarrhea now resolving, But still with persistent Fever, May need repeat CT/AP per ID, still with profused Encephalopathy 10/22: Continue supportive care, weaning, awaiting repeat Imaging. FOLLOW Fever curve. Enoxparin restarted 10/23: Continue supportive care, wean as tolerated. 10/24; Started on CPAP trial, discussed with pulmonary, still with diarrhea. 10/25: Patients seen and examined, no clinical changes, still with diarrhea. ?meaningful recovery. 10/26: Clinically unchanged, continue CPAP trial, Will discuss with Neurology about re-evaluation, ?Need for repeat CT head. ?PRESS considering initial elevated BP, now stable. 10/27; tracheostomy on vent, weaning trials, vital signs noted, poor prognosis 10/28; unable to wean, tracheostomy on vent. Sepsis. Continue current management. Consults and recommendations noted and appreciated 10/30/2020;Patient on T-piece 5 L of oxygen not in acute distress, noncommunicative 11/02/2020; patient on T-piece 5 L of oxygen 11/03/2020; patient's fever slightly improved low-grade, continue current management, remains on T-piece with 5 L of oxygen 11/04/2020; T-max last 24 hours 100.3 F, new cultures negative to date, monitor off antibiotics Patient is off Levophed, blood pressures reasonable level, tracheostomy on T- piece 3 to 5 L nasal cannula oxygen 11/05/2020; tracheostomy on T-piece patient remains on 5 L of nasal cannula oxygen, unresponsive severe hypoxic brain injury I called patient's mother Ms. Pamela Bassett as well as patient's spouse Mr. Dainlo Dimas at [phone] unable to reach them Left voicemail on Ms. Pamela Bassettz phone and encouraged him to call back 11/06/2020; I tried to call again today Ms. Pamela Bassett to discuss patient's condition and treatment plan and update consultants recommendations and patient's prognosis., unable to reach her 11/10/2020; family conference was held by case management yesterday 11/09/2020, family decided and agreed for SNF placement 11/11/2020; patient seen and examined, clinically no change tracheostomy on 5 L of nasal cannula oxygen, hemodynamically and clinically stable for discharge To LTAC versus SNF, DC planning per case management 11/12/2020; clinically no change, continue current management, DC planning per case management possible SNF placement 11/13/2020; patient is receiving herpes flareup treatment per ID 11/14/2020; clinically no change, awaiting SNF placement 11/15/2020; clinically no change, tracheostomy on T-piece on 5 L oxygen, awaiting placement 11/16/2020; patient awaiting placement The high probability of a clinically significant, sudden or life threatening deterioration of the [MULTIPLE ORGAN] system(s) required my full and direct attention, intervention and personal management. The aggregate critical care time was [33] minutes. This time is in addition to time spent performing reported procedures but includes the following: [X] Data Review and interpretation [X] Patient assessment and monitoring of vital signs [X] Documentation [X] Medication orders and management History Interval history: I have seen and examined the patient at the bedside in ICU Patient's chart and medications reviewed Patient is noncommunicative agitated Tracheostomy on T-piece 5 L of nasal cannula oxygen Persistent hypoglycemia, on D10 W IV fluids ranging from 89-120 Vital signs noted Hospitalist Physical - Constitutional Vitals: Temp Pulse Resp BP Pulse Ox 99.2 F 79 19 130/65 99 11/16/20 12:24 11/16/20 12:00 11/16/20 12:00 11/16/20 12:00 11/16/20 12:00 General appearance: Present: no acute distress, well-nourished, obese, other (Patient is restless) - EENT Eyes: Present: PERRL, EOM intact - Neck Neck: Present: supple, normal ROM - Respiratory Respiratory effort: normal Respiratory: bilateral: diminished, rhonchi, negative: rales, wheezing - Cardiovascular Rhythm: regular Heart Sounds: Present: S1 & S2 - Extremities Extremities: abnormal (Obese) Extremity abnormal: edema - Abdominal General gastrointestinal: soft, non-tender, non-distended, other (PEG tube in pl evelyn) - Integumentary Integumentary: Present: clear, warm - Psychiatric Psychiatric: other (Noncommunicative) - Neurologic Neurologic: other (Noncommunicative) HEART Score - HEART Score Age: < 45 Risk factors: 1-2 risk factors - Critical Actions Critical Actions: >7 pts:50-65% risk of adverse cardiac event. Early invasive measures Results - Labs CBC & Chem 7: 11/07/20 04:44 11/13/20 10:05 Labs: Laboratory Last Values WBC 10.2 K/mm3 (4.5-11.0) 11/07/20 04:44 RBC 3.88 M/mm3 (3.65-5.03) 11/07/20 04:44 Hgb 11.0 gm/dl (10.1-14.3) 11/07/20 04:44 Hgb Comment See scanned result 10/04/20 Unknown Hct 32.6 % (30.3-42.9) 11/07/20 04:44 MCV 84 fl (79-97) 11/07/20 04:44 MCH 28 pg (28-32) 11/07/20 04:44 MCHC 34 % (30-34) 11/07/20 04:44 RDW 16.6 % (13.2-15.2) H 11/07/20 04:44 Plt Count 259 K/mm3 (140-440) 11/07/20 04:44 Lymph % (Auto) 15.2 % (13.4-35.0) 11/07/20 04:44 Alfalfa % (Auto) 13.1 % (0.0-7.3) H 11/07/20 04:44 Eos % (Auto) 2.5 % (0.0-4.3) 11/07/20 04:44 Baso % (Auto) 0.6 % (0.0-1.8) 11/07/20 04:44 Lymph # (Auto) 1.6 K/mm3 (1.2-5.4) 11/07/20 04:44 Alfalfa # (Auto) 1.3 K/mm3 (0.0-0.8) H 11/07/20 04:44 Eos # (Auto) 0.3 K/mm3 (0.0-0.4) 11/07/20 04:44 Baso # (Auto) 0.1 K/mm3 (0.0-0.1) 11/07/20 04:44 Add Manual Diff Complete 10/29/20 07:56 Total Counted 100 10/29/20 07:56 Seg Neutrophils % 68.6 % (40.0-70.0) 11/07/20 04:44 Seg Neuts % (Manual) 80.0 % (40.0-70.0) H 10/29/20 07:56 Band Neutrophils % 2.0 % 10/15/20 05:50 Lymphocytes % (Manual) 15.0 % (13.4-35.0) 10/29/20 07:56 Reactive Lymphs % (Man) 1.0 % 10/02/20 12:18 Monocytes % (Manual) 4.0 % (0.0-7.3) 10/29/20 07:56 Eosinophils % (Manual) 1.0 % (0.0-4.3) 10/29/20 07:56 Myelocytes % 2.0 % 10/02/20 13:05 Metamyelocytes % 1.0 % 10/14/20 04:00 Nucleated RBC % Not Reportable 10/29/20 07:56 Seg Neutrophils # 7.0 K/mm3 (1.8-7.7) 11/07/20 04:44 Seg Neutrophils # Man 10.9 K/mm3 (1.8-7.7) H 10/29/20 07:56 Band Neutrophils # 0.0 K/mm3 10/29/20 07:56 Lymphocytes # (Manual) 2.0 K/mm3 (1.2-5.4) 10/29/20 07:56 Abs React Lymphs (Man) 0.0 K/mm3 10/29/20 07:56 Monocytes # (Manual) 0.5 K/mm3 (0.0-0.8) 10/29/20 07:56 Eosinophils # (Manual) 0.1 K/mm3 (0.0-0.4) 10/29/20 07:56 Basophils # (Manual) 0.0 K/mm3 (0.0-0.1) 10/29/20 07:56 Metamyelocytes # 0.0 K/mm3 10/29/20 07:56 Myelocytes # 0.0 K/mm3 10/29/20 07:56 Promyelocytes # 0.0 K/mm3 10/29/20 07:56 Blast Cells # 0.0 K/mm3 10/29/20 07:56 WBC Morphology Not Reportable 10/29/20 07:56 Hypersegmented Neuts Not Reportable 10/29/20 07:56 Hyposegmented Neuts Not Reportable 10/29/20 07:56 Hypogranular Neuts Not Reportable 10/29/20 07:56 Smudge Cells Not Reportable 10/29/20 07:56 Toxic Granulation Not Reportable 10/29/20 07:56 Toxic Vacuolation Not Reportable 10/29/20 07:56 Dohle Bodies Not Reportable 10/29/20 07:56 Pelger-Huet Anomaly Not Reportable 10/29/20 07:56 Ester Rods Not Reportable 10/29/20 07:56 Platelet Estimate Consistent w auto 10/29/20 07:56 Clumped Platelets Not Reportable 10/29/20 07:56 Plt Clumps, EDTA Not Reportable 10/29/20 07:56 Large Platelets Few 10/29/20 07:56 Giant Platelets Not Reportable 10/29/20 07:56 Platelet Satelliting Not Reportable 10/29/20 07:56 Plt Morphology Comment Not Reportable 10/29/20 07:56 RBC Morphology Not Reportable 10/29/20 07:56 Dimorphic RBCs Not Reportable 10/29/20 07:56 Polychromasia Rare 10/29/20 07:56 Hypochromasia Few 10/29/20 07:56 Poikilocytosis Not Reportable 10/29/20 07:56 Anisocytosis Not Reportable 10/29/20 07:56 Microcytosis Not Reportable 10/29/20 07:56 Macrocytosis Not Reportable 10/29/20 07:56 Spherocytes Not Reportable 10/29/20 07:56 Pappenheimer Bodies Not Reportable 10/29/20 07:56 Sickle Cells Not Reportable 10/29/20 07:56 Target Cells Few 10/29/20 07:56 Tear Drop Cells Not Reportable 10/29/20 07:56 Ovalocytes Not Reportable 10/29/20 07:56 Stomatocytes Few 10/14/20 04:00 Helmet Cells Not Reportable 10/29/20 07:56 [place] Bodies Not Reportable 10/29/20 07:56 [place] Rings Not Reportable 10/29/20 07:56 Antoine Cells Not Reportable 10/29/20 07:56 Bite Cells Not Reportable 10/29/20 07:56 Crenated Cell Not Reportable 10/29/20 07:56 Elliptocytes Not Reportable 10/29/20 07:56 Acanthocytes (Spur) Not Reportable 10/29/20 07:56 Rouleaux Not Reportable 10/29/20 07:56 Hemoglobin C Crystals Not Reportable 10/29/20 07:56 Schistocytes Not Reportable 10/29/20 07:56 Malaria parasites Not Reportable 10/29/20 07:56 Sickle Cell Solubility See scanned result 10/04/20 Unknown Hemoglobin A See scanned result 10/04/20 Unknown Hemoglobin A2 See scanned result 10/04/20 Unknown Hemoglobin A2 Prime See scanned result 10/04/20 Unknown Hemoglobin C See scanned result 10/04/20 Unknown Hemoglobin D See scanned result 10/04/20 Unknown Hemoglobin E See scanned result 10/04/20 Unknown Hgb F Diffential Stain See scanned result 10/04/20 Unknown Hemoglobin F Quant See scanned result 10/04/20 Unknown Hemoglobin G See scanned result 10/04/20 Unknown Hemoglobin S See scanned result 10/04/20 Unknown Hemoglobin [place] See scanned result 10/04/20 Unknown Hemoglobin [place] See scanned result 10/04/20 Unknown Hemoglobin Analilia See scanned result 10/04/20 Unknown Variant Hemoglobin See scanned result 10/04/20 Unknown Abnorm Hgb IEF Confirm See scanned result 10/04/20 Unknown Hemoglobin Interpret See scanned result 10/04/20 Unknown Hemoglobinopathy Note See scanned result 12/20/20 Unknown Sharad Bodies Not Reportable 10/29/20 07:56 Hem Pathologist Commnt No 10/29/20 07:56 PT 13.6 Sec. (12.2-14.9) 10/21/20 13:54 INR 1.06 (0.87-1.13) 10/21/20 13:54 APTT 31.6 Sec. (24.2-36.6) 10/03/20 00:40 Fibrinogen 336 mg/dl (211-480) 10/04/20 10:00 D-Dimer 1974.47 ng/mlDDU (0-234) H 11/11/20 13:50 ABG pH 7.459 pH Units (7.350-7.450) H 10/26/20 10:30 POC ABG pCO2 20.7 mmHg (32.0-48.0) L 10/13/20 07:18 ABG pCO2 32.4 mm Hg 10/26/20 10:30 POC ABG pO2 137.9 mmHg (83-108) H 10/13/20 07:18 ABG pO2 112.2 mm Hg (80.0-90.0) H 10/26/20 10:30 POC ABG HCO3 14.8 10/13/20 07:18 ABG HCO3 22.5 mmol/L (20.0-26.0) 10/26/20 10:30 ABG O2 Saturation 98.2 % (95.0-99.0) 10/26/20 10:30 ABG O2 Content 18.5 (0.0-44) 10/26/20 10:30 POC ABG Base Excess -6.9 10/13/20 07:18 ABG Base Excess -0.6 mmol/L (-2.0-3.0) 10/26/20 10:30 ABG Hemoglobin 13.5 gm/dl (12.0-16.0) 10/26/20 10:30 ABG Oxyhemoglobin 98.3 (94-98) H 10/13/20 07:18 ABG Carboxyhemoglobin 1.3 % (0.0-5.0) 10/26/20 10:30 ABG Methemoglobin 0.5 % (0.0-1.5) 10/26/20 10:30 ABG Sodium 135.9 mmol/L (136.0-145.0) L 10/13/20 07:18 ABG Potassium 3.7 mmol/L (3.40-4.50) 10/13/20 07:18 ABG Chloride 111.0 mmol/L (98-107) H 10/13/20 07:18 ABG Glucose 109 mg/dL (65-95) H 10/13/20 07:18 VBG pH 6.949 (7.320-7.420) L* 10/02/20 Unknown Oxyhemoglobin 96.5 % (95.0-99.0) 10/26/20 10:30 Carboxyhemoglobin 0.3 (0.5-1.5) L 10/13/20 07:18 FiO2 25 % 10/26/20 10:30 Sodium 138 mmol/L (137-145) 11/13/20 10:05 Potassium 4.3 mmol/L (3.6-5.0) 11/13/20 10:05 Chloride 101.7 mmol/L (98-107) 11/13/20 10:05 Carbon Dioxide 23 mmol/L (22-30) 11/13/20 10:05 Anion Gap 18 mmol/L 11/13/20 10:05 BUN 14 mg/dL (7-17) 11/13/20 10:05 Creatinine 0.6 mg/dL (0.6-1.2) 11/13/20 10:05 Estimated GFR > 60 ml/min 11/13/20 10:05 BUN/Creatinine Ratio 23 % 11/13/20 10:05 Glucose 114 mg/dL (65-100) H 11/13/20 10:05 POC Glucose 98 mg/dL (70-105) 11/16/20 11:29 Random Insulin 43.2 uIU/mL (<=19.6) H 11/02/20 19:19 Proinsulin See scanned result 11/02/20 19:19 C-Peptide 6.23 ng/mL (0.80-3.85) H 11/02/20 19:19 Lactic Acid 1.90 mmol/L (0.7-2.0) 10/04/20 22:00 Uric Acid 7.5 mg/dL (3.5-7.6) 10/02/20 13:05 Calcium 9.7 mg/dL (8.4-10.2) 11/13/20 10:05 Ionized Calcium 4.4 mg/dL (4.8-5.6) L 10/07/20 21:00 Phosphorus 4.60 mg/dL (2.5-4.5) H 11/13/20 10:05 Magnesium 2.10 mg/dL (1.7-2.3) 11/13/20 10:05 Total Bilirubin 0.50 mg/dL (0.1-1.2) 11/04/20 05:00 AST 90 units/L (5-40) H 11/04/20 05:00 ALT 36 units/L (7-56) 11/04/20 05:00 Alkaline Phosphatase 122 units/L (35-129) 11/04/20 05:00 Lactate Dehydrogenase 769 units/L (91-180) H 10/02/20 13:05 C-Reactive Protein 0.70 mg/dL (0.00-1.30) 11/11/20 13:50 NT-Pro-B Natriuret Pep 2788 pg/mL (0-450) H 10/04/20 10:00 Total Protein 7.4 g/dL (6.3-8.2) 11/04/20 05:00 Albumin 3.8 g/dL (3.9-5) L 11/04/20 05:00 Albumin/Globulin Ratio 1.1 % 11/04/20 05:00 Procalcitonin < 0.05 ng/mL (<0.15) 11/11/20 13:50 Arterial Blood Glucose 109 mg/dL (65-95) H 10/13/20 07:18 Arterial Blood Ionized Calcium 4.6 mg/dL (4.6-5.3) 10/13/20 07:18 Urine Color Yellow (Yellow) 11/11/20 13:50 Urine Turbidity Cloudy (Clear) 11/11/20 13:50 Urine pH 6.0 (5.0-7.0) 11/11/20 13:50 Ur Specific [place] 1.013 (1.003-1.030) 11/11/20 13:50 Urine Protein 100 mg/dl mg/dL (Negative) 11/11/20 13:50 Urine Glucose (UA) Neg mg/dL (Negative) 11/11/20 13:50 Urine Ketones Neg mg/dL (Negative) 11/11/20 13:50 Urine Blood Mod (Negative) 11/11/20 13:50 Urine Nitrite Pos (Negative) 11/11/20 13:50 Urine Bilirubin Neg (Negative) 11/11/20 13:50 Urine Urobilinogen 2.0 mg/dL (<2.0) 11/11/20 13:50 Ur Leukocyte Esterase Lg (Negative) 11/11/20 13:50 Urine WBC (Auto) > 182.0 /HPF (0.0-6.0) H 11/11/20 13:50 Urine RBC (Auto) > 182.0 /HPF (0.0-6.0) 11/11/20 13:50 U Epithel Cells (Auto) 1.0 /HPF (0-13.0) 11/11/20 13:50 Urine Bacteria (Auto) 4+ /HPF (Negative) 11/11/20 13:50 Urine WBC Clumps 3+ /HPF 11/11/20 13:50 Calcium Oxalate Crystal Few 11/11/20 13:50 Urine Mucus Few /HPF 11/11/20 13:50 Vancomycin Trough 12.6 ug/mL (5.0-20.0) 10/21/20 13:54 Random Vancomycin 10.7 ug/mL (0-40.0) 10/16/20 13:09 Phenytoin 5.7 ug/mL (10.0-20.0) L 10/13/20 07:00 C. difficile Tox (PCR) Positive (Negative) 10/16/20 10:22 Coronavirus (PCR) Negative (Negative) 10/08/20 14:15 Blood Type O POSITIVE 10/02/20 12:50 Antibody Screen Negative 10/02/20 12:50 Crossmatch See Detail 10/02/20 12:50 - Diagnostic Impressions Diagnostic Impressions: Echocardiogram 10/03/20 13:42 Transthoracic Echocardiogram Indication: S/P Cardiac Arrest R/O Cardiomyopathy BP: 133/71 Conclusions *Global left ventricular systolic function is normal. *The estimated ejection fraction is 60-65%. *There is trace of mitral regurgitation. *The right 0heart chambers are both slightly dilated. *There is mild tricuspid regurgitation. *There is mild-moderate pulmonary hypertension. *The right ventricular systolic pressure is calculated at 44 mmHg. *The study quality is technically difficult. Findings Procedure Info: The study quality is technically difficult. The study is technically limited due to patient body habitus. The study was technically limited due to the patient's inability to lay in the left lateral decubitus position. Left Ventricle: The left ventricular chamber size is normal. There is no left ventricular hypertrophy. Global left ventricular systolic function is normal. The estimated ejection fraction is 60-65%. Left Atrium: The left atrial chamber size is normal. Right Ventricle: The right ventricle is slightly dilated. Right Atrium: The right atrium is mildly dilated. Aortic Valve: The aortic valve leaflets are mildly thickened. There is no evidence of aortic regurgitation. There is no evidence of aortic stenosis. Mitral Valve: The mitral valve leaflets are mildly thickened. There is trace of mitral regurgitation. There is no evidence of mitral stenosis. Tricuspid Valve: There is mild tricuspid regurgitation. The right ventricular systolic pressure is calculated at 44 mmHg. There is evidence of mild pulmonary hypertension. Pulmonic Valve: There is trace pulmonic regurgitation. Pericardium: There is no pericardial effusion. Aorta: There is no dilatation of the ascending aorta. There is no dilatation of the aortic root. Venous: The inferior vena cava is dilated. Measurements Chambers 2D Name Value Normal Range IVSd (2D) 1 cm (0.6 - 1.1) LVPWd (2D) 1.01 cm (0.6 - 1.1) LVIDd (2D) 4.58 cm (3.7 - 5.6) LVIDs (2D) 3.17 cm (2 - 3.8) LV FS (2D) 30.93 % - EF Teichholz (2D) 58.66 % - Ao root diameter (2D) 2.94 cm (2 - 3.7) Volumes/Mass Name Value Normal Range LA ESV SP 4CH (A/L) 72.82 ml - LA ESV SP 2CH (A/L) 66.86 ml - LA ESV BP (A/L) 74.49 ml - LA ESV SP 4CH (MOD) 71.03 ml - LA ESV SP 2CH (MOD) 64.3 ml - LV EDV SP 4CH (MOD) 98.82 ml - LV ESV SP 4CH (MOD) 24.8 ml - EF SP 4CH (MOD) 74.9 % - LV EDV SP 2CH (MOD) 86.1 ml - LV ESV SP 2CH (MOD) 36.93 ml - EF SP 2CH (MOD) 57.11 % - LV EDV BP 94.4 ml - LV ESV BP 32.66 ml - BP EF (MOD) 65.4 % - Diastolic/Systolic Function Name Value Normal Range MV E-wave Vmax 1.04 m/sec - MV deceleration time 160.46 msec - MV A-wave Vmax 0.92 m/sec - MV E:A ratio 1.14 ratio - Aortic Valve Name Value Normal Range AV Vmax 2.12 m/sec - AV VTI 22.37 cm - AV peak gradient 17.95 mmHg - AV mean gradient 7.29 mmHg - LVOT diameter 2.01 cm - LVOT Vmax 1.8 m/sec - LVOT VTI 27.17 cm - LVOT peak gradient 12.91 mmHg - LVOT mean gradient 6.83 mmHg - SV LVOT 86.42 ml - ANITA (continuity Vmax) 2.7 cm2 - ANITA (continuity VTI) 3.86 cm2 - Ascending Ao 3.18 cm - Tricuspid Valve Name Value Normal Range TV E-wave Vmax 0.88 m/sec - TR Vmax 3.01 m/sec - TR peak gradient 36.27 mmHg - RAP 8 mmHg - RVSP 44 mmHg - IVC diameter 2.65 cm (1.2 - 2.3) Pulmonic Valve/Qp:Qs Name Value Normal Range PV Vmax 1.22 m/sec - PV peak gradient 5.91 mmHg - RVOT Vmax 0.87 m/sec - RVOT VTI 13.32 cm - RVOT peak gradient 3 mmHg - PV acceleration time 110.37 msec - [place]/IV: Voiding Method External Female Catheter IV Catheter Type [Right Foot] INT / Saline Lock IV Catheter Type [Left Forearm Peripheral IV ] IV Catheter Type [Left Wrist] INT / Saline Lock IV Catheter Type [Right Hand] INT / Saline Lock IV Catheter Type [Right INT / Saline Lock Antecubital] IV Catheter Type [Right Upper Mid-line arm] IV Catheter Type [Left Triple Lumen Cath Internal Jugular] IV Catheter Type [Left Hand] Peripheral IV IV Catheter Type [Left Peripheral IV Antecubital] Active Medications - Current Medications Current Medications: Generic Name Dose Route Start Last Admin Trade Name Freq PRN Reason Stop Dose Admin Acetaminophen 650 mg 10/05/20 16:34 11/16/20 02:49 Acetaminophen 325 Mg/10.15 Ml Oral Liqd Unit Dose FEEDTUBE 650 mg Q6H PRN Administration Non Cardiac Pain or Temp>100.5 Albuterol 2.5 mg 11/05/20 13:03 11/06/20 13:04 Albuterol 2.5 Mg/3 Ml Nebu IH 2.5 mg Q4HRT PRN Administration Shortness Of Breath Lipase/Protease/Amylase 1 each 10/05/20 11:09 Lipase 10,500/Protease 25,000/Amylase 43,750 (Units) Dr Barakat FEEDTUBE PRN PRN For Clogged Feeding Tube Enoxaparin Sodium 40 mg 10/22/20 10:00 11/16/20 10:33 Enoxaparin 40 Mg/0.4 Ml Inj SUB-Q 40 mg DAILY ERINN Administration Protocol Famotidine 20 mg 10/07/20 10:00 11/16/20 10:29 Famotidine 20 Mg Tab PO 20 mg BID ERINN Administration Furosemide 40 mg 10/17/20 10:00 11/16/20 10:29 Furosemide 40 Mg Tab PO 40 mg QDAY ERINN Administration Hydralazine HCl 20 mg 10/07/20 11:49 10/17/20 07:20 Hydralazine 20 Mg/1 Ml Inj IV 20 mg Q6H PRN Administration SBP >170 Hydralazine HCl 50 mg 10/17/20 09:00 11/16/20 06:38 Hydralazine 25 Mg Tab PO 50 mg Q8HR ERINN Administration Hydrocortisone Sodium Succinate 100 mg 11/12/20 14:00 11/16/20 06:38 Hydrocortisone Sod Succ 100 Mg/2 Ml Vial IV 100 mg Q8HR ERINN Administration Dextrose 1,000 mls @ 75 mls/hr 10/13/20 11:00 11/16/20 13:04 D10w IV 75 mls/hr DIRECT ERINN Administration Labetalol HCl 300 mg 11/16/20 17:00 Labetalol 200 Mg Tab PO TID ERINN Simple Syrup 15 ml 10/05/20 11:09 Simple Syrup 15 Ml FEEDTUBE PRN PRN Hypoglycemia Simple Syrup 30 ml 10/05/20 11:09 Simple Syrup 15 Ml FEEDTUBE PRN PRN Hypoglycemia Sodium Bicarbonate 325 mg 10/05/20 11:09 11/06/20 10:35 Sodium Bicarbonate 325 Mg Tab FEEDTUBE 325 mg PRN PRN Administration For Clogged Feeding Tube Sodium Bicarbonate 1,300 mg 10/13/20 14:00 11/16/20 10:29 Sodium Bicarbonate 650 Mg Tab PO 1,300 mg TID ERINN Administration Topiramate 50 mg 10/05/20 11:00 11/16/20 10:29 Topiramate Tab 25 Mg Tab PO 50 mg Q12HR ERINN Administration Nutrition/Malnutrition Assess - Dietary Evaluation Nutrition/Malnutrition Findings: Nutrition Notes Start: 10/04/20 11:13 Freq: Status: Active Protocol: Document 11/10/20 11:16 CW (Rec: 11/10/20 11:23 CW [id number]) Co-Sign 11/10/20 11:16 LP Nutrition Notes Initial or Follow up Reassessment Current Diagnosis Acute Kidney Injury, Respiratory Failure Other Pertinent Diagnosis C-Diff, Cardiac arrest, s/p c- sectuion and supracervial hysterectomy Current Diet Jevity 1.2 at 60 ml/hr Labs/Tests reviewed Pertinent Medications lasix D10w at 75ml/hr Height 5 ft 8 in Weight 105.3 kg [place] Body Weight (kg) 63.63 BMI 35.3 Weight change and time frame Wt change noted, pt on lasix Weight Status Morbidly Obese Subjective/Other Information FU for TF tolerance, POC. Pt remains on T-piece with TF running at goal and D10w infusing. Per chart, discussed POC with family and pending SNF placement. Per RN, pt tolerating TF. Percent of energy/protein needs met: 100%/100% Burn Absent Trauma Absent GI Symptoms None Food Allergy Yes Current % PO Negligible Minimum of two criteria No Fluid Accumulation Mild (non-severe) #1 Nutrition Diagnosis Inadequate oral intake Diagnosis Progress(for reassessment Continues documentation) Is patient on ventilator? No Is Patient Ambulatory and/or Out of Bed No REE-([facility]-confined to bed) [phone] Kcal/Kg value to use for calculation 16 Approximate Energy Requirements Using 1685 kcal/Kg Calculation Used for Recommendations Kcal/kg Additional Notes Protein needs are 68-85g (0.8- 1g/kg AdjBW 85kg) Fluid needs are 1ml/kcal Nutrition Intervention Change Diet Order: Continue Nutrition Support: Jevity 1.2 at 60ml/hr. Flush 100ml q4h. Kcal 1,782 Protein (gm) 87 Fluid (mL) 1,259 Goal #1 TF tolerance Goal #2 Meet at least 75% of energy and protein needs Anticipated Discharge Needs: Unable to determine at this time Follow-Up By: 11/17/20 Additional Comments FU for TF tolerance, POC
[2020-11-16] MEDS: SODIUM BICARBONATE 325 MG TAB FEEDTUBE PRN (16:54)
--- NOTE | 2020-11-16 21:02 | Cat Scan Report ---
CT ABDOMEN AND PELVIS WITH IV CONTRAST INDICATION: Concern for Insulinoma. COMPARISON: CT 10/23/2020. TECHNIQUE: All CT scans at this facility use dose modulation, automated exposure control, iterative reconstructi on or weight based dosing, when appropriate, to reduce radiation dose to as low as reasonably achieva ble. FINDINGS: Lung Bases: No significant abnormality. Skeletal System: No acute abnormality. ABDOMEN: Liver: No significant abnormality. Gallbladder: Removed. Bile Ducts: No significant abnormality. Pancreas: No intrinsic lesions. Spleen: No significant abnormality. Adrenals: No significant abnormality. Right Kidney: There is through the upper pole which limits evaluation. Accounting for this, no signif icant abnormality. Left Kidney: Is artifact through the upper poles which limits evaluation. Accounting for this, no sig nificant abnormality. Upper GI tract: Gastrostomy remains in satisfactory position. Lymph Nodes: No significant adenopathy. Aorta: No significant abnormality. Additional Findings: No significant abnormality. PELVIS: Colon: No acute abnormality. Urinary Bladder and Distal Ureters: No significant abnormality. Appendix: No significant abnormality. Lymph Nodes: No significant adenopathy. Additional Findings: There are postsurgical changes in the supracervical region related to the hyster ectomy. No drainable fluid collection or significant free fluid. IMPRESSION: 1. No CT evidence of primary pancreatic neoplasm. 2. Postsurgical changes related to hysterectomy. No drainable fluid collection is seen. There appear s to be supracervical hematoma. Signer Name: Franklin Frederick MD Signed: 11/16/2020 8:58 PM Workstation Name: [id number]
[2020-11-17] MEDS: DEXTROSE 10% IN WATER 1,000 ML IV SCH ×2 (05:18→18:45)
[2020-11-17] MEDS: hydrALAZINE 25 MG TAB PO SCH ×3 (05:19→21:20)
[2020-11-17] MEDS: HYDROCORTISONE SOD SUCC 100 MG/2 ML VIAL IV SCH (05:19)
--- NOTE | 2020-11-17 08:52 | Progress Note ---
Assessment and Plan Assessment and plan: 30 y/o female patient with Eclampsia/help syndrome, s/p emergent section with DIC, hemorrhage, supracervical abdominal hysterectomy, acute respiratory failure , tracheostomy on T-piece with morbid obesity, s/p cardiac arrest 12/08/2019 status post CPR per ACLS, acute hypoxic brain injury Acute kidney injury improved, severe shock requiring pressors, DIC septic shock improved, history of C. difficile colitis completed treatment with vancomycin. Tracheostomy on T-piece, continues to require 5 L of oxygen. Herpetic flareup, ID started treatment with antibiotics Assessment and plan: --Persistent hypoglycemia; patient is requiring continuous D10 W infusion CT abdomen done to rule out insulinoma, CT abdomen report negative for pancreatic tumor We will closely monitor --Cardiac arrest; 10/07/2020 ,status post CPR --Acute hypoxic brain injury; Supportive care, closely monitor --Acute hypoxic respiratory failure: Tracheostomy on T-piece , today on 4.5 L oxygen, saturating 100% Supportive care, Pulmonary critical following COVID-19 negative C. difficile positive; Patient on contact isolation Completed treatment --Afebrile: Blood, urine, tracheal aspirate cultures New cultures negative to date Monitor off antibiotics Closely monitor --Sepsis; received antibiotics Continue to monitor off antibiotics ID following --COVID-19 test negative; 10/08/2020 --C. difficile colitis test; positive; 10/16/2020 --Acute metabolic encephalopathy --Acute kidney injury; vasomotor nephropathy Resolved, renal function within normal limits, closely monitor --Shock; monitor of pressors Blood pressures reasonable level --DIC; sepsis, septic shock, resolved --History of preeclampsia; / hemorrhage Status post hysterectomy --History of C. difficile colitis; completed oral vancomycin --DVT/SVT and right upper extremity Very poor prognosis, Consults recommendations noted and appreciated We will closely monitor the patient and adjust management as needed Plan of care reviewed with the patient's nurse. Brief history; 30 year old -[place] female CHE 10/25/20 at 36w5d who presents with seizures in triage on 10/02/20. Pt was not able to provide history but per pt's , she presented to the hospital to return a 24 hour urine specimen for analysis. She then suddenly reported that she did not feel good. She was taken to labor and delivery and shortly after arrival, she began seizing. During this time, a code met was called because the patient became hypoxic. She was then noted to be without a pulse. Chest compressions were started immediately, and the patient was emergently taken to the operating room for delivery of the fetus. Off note, This patient has had care at [facility] with comanagement by [facility] since 11 wks complicated by ADHD, morbid obesity, generalized anxiety disorder, panic attacks, chronic narcotic use, fibromyalgia, GERD, Irritable Bowel Syndrome, Migraines, h/o endometrial ablation and ovarian vein embolization, genital herpes, insomnia, LGA fetus, nausea and vomiting, polyhydramnios, quad screen positive for Down's Syndrome, and previous x 3. She is GBS negative. , Patient tracheostomy on ventilatory support, unable to wean, continue supportive care poor prognosis 11:30: Pt brought to L&D triage for evaluation of possible labor. Pt accompanied by her spouse. Pt spouse poor historian; unable to obtain history- allergies at this time. Pt taken from registration to triage area via WC. Pt unresponsive, actively seizing with snorous respirations. solid plasterer, Kassy, called and r equesting assistance. 11:35: Multiple staff at bedside. Pt 02 sat 67% on nonrebreather, unable to read BP . Yifan Theodore CRNA, at bedside for intubation and assistance with IV insertion. INT attempt by multiple RNs unsuccessful at this time. 11:42: Pt being bagged by KORIN, 02% 79%. No pulse palpated, compressions on at this time; bharati young called and Dr. Newberry preparing OR for emergent c/s. 11:44: Continued compressions on stretcher while transporting pt to OR 1. Pt being bagged with jaw thrust manuever in place by KORIN Stringer student. 11:45: Arrival to OR 1. Dr. Newberry and Dr. Portillo present for emergent c/s. Code team arrived for continued care. patient revived and c/s done Patient has been bleeding from C/s site followed by supracervical hysterectomy for severe bleeding, Patient transfused multiple units of PRBC, Patient in DIC. Patient transferred to the ICU Hospital course; 10/03. Patient seen and examined at bedside this morning. Patient is nonresponsive and mechanically ventilated. On pressors. Labs reviewed-has leukocytosis, anemia, thrombocytopenia, ADOLPH and lactic acidosis. Started on IV antibiotics to cover possible sepsis secondary to DIC. Hematology oncology recommendations appreciated-needs additional cryoprecipitate and FFP. Monitor D-dimer, fibrinogen and frequent labs. Nephrology consulted for lactic acidosis and ADOLPH. 10/04. Remains mechanically ventilated. [place] antibiotics. Labs shows improved acidosis - lactic acid 3.5. Hb drop noted. Getting transfused 2 units PRBCs. Platelet count is ~40k. Continue to monitor labs closely. Critical care team on board. 10/05; xray reviewed, concerning for multifocal infilrate, likely underlying Pneumonia, will add ID consult to assist with management of this critically ill patient, start tube feed, closely monitor renal system 10/06: Resumed care, remains on mechanical ventilation. No active bleeding, H&H stable. Continue to monitor CBC and BMP. Continue IV antibiotic for underlying pneumonia. Follow critical care and ID recommendation. 10/07: Remains on mechanical ventilation. No active bleeding, H&H stable. Critical care following, wean off ventilation as tolerated. 10/08: Patient had another cardiac arrest last night. Remains on mechanical ventilation, update family. Continue supportive care -poor prognosis 10/09: Called patient mother and discussed about patient care and management. Answered all question to best of my knowledge and family satisfaction. Patient remains on mechanical ventilation, cardiac arrest x2 so far. Critically sick, poor prognosis 10/10: remains on mechanical ventilation. h/h stable, no active bleeding. monitor CBC/BMP 10/11: WBC trended up with diarrhea, started on vancomycin po. remains on MV, off pressor, tolerating TF 10/12: remains on MV, off pressor, tolerating TF. called family for update but unable to reach, could not leave message as it was full. cont supportive care, wean off vent as tolerated. 10/13/2020; patient is on mechanical ventilation, tolerating tube feeding. Patient has labored breathing. Neuro was consulted and recommend MRI. Patient is on Precedex. Rectal tube in place. 10/14/2020; patient is on mechanical ventilation, Precedex. Patient had fever and blood culture ordered. Patient is on IV vancomycin per ID recommendation. Neuro consulted and recommend MRI. Continue to monitor. Prognosis is guarded. 10/15/2020; patient is on mechanical ventilation, Precedex. Patient had fever and blood culture ordered. Patient is on IV vancomycin per ID recommendation. Neuro consulted and recommend MRI. Continue to monitor. Prognosis is guarded. 10/17: Remains with C.DIFF and Bactermia, Poor prognosis. No purposeful movement. MRI and EEG discussed with Intensvisit, Continue aggressive BP control. 10/18: Blood pressure better controlled MRI done 10/15 shows mild improvement in edema. We will continue to monitor mother was at bedside yesterday. Nursing documentation trach and PEG discussed with the mother including goals of care. She is still in denial about the gravity of her daughters her condition which is understandable considering her age. Continue aggressive management at this time . Await for bacteremia to clear by ID before placing PICC line. 10/19: Patient for possible PEG and Trach, ID following, repeat cultures remain negative. Poor prognosis 10/20: Pt noted to DVT and SVT in the RUE, Vascular consult and will also obtain Hematology for possible considering changing in Anticoagulation. CONTINUE TO MONITOR H/H and PLT. Family updated by [employer]ens[employer]. Heparin gtt started. Will check CBC and BMP 10/21: Continue supporive care, Diarrhea now resolving, But still with persistent Fever, May need repeat CT/AP per ID, still with profused Encephalopathy 10/22: Continue supportive care, weaning, awaiting repeat Imaging. FOLLOW Fever curve. Enoxparin restarted 10/23: Continue supportive care, wean as tolerated. 10/24; Started on CPAP trial, discussed with pulmonary, still with diarrhea. 10/25: Patients seen and examined, no clinical changes, still with diarrhea. ?meaningful recovery. 10/26: Clinically unchanged, continue CPAP trial, Will discuss with Neurology about re-evaluation, ?Need for repeat CT head. ?PRESS considering initial elevated BP, now stable. 10/27; tracheostomy on vent, weaning trials, vital signs noted, poor prognosis 10/28; unable to wean, tracheostomy on vent. Sepsis. Continue current management. Consults and recommendations noted and appreciated 10/30/2020;Patient on T-piece 5 L of oxygen not in acute distress, nonco mmunicative 11/02/2020; patient on T-piece 5 L of oxygen 11/03/2020; patient's fever slightly improved low-grade, continue current management, remains on T-piece with 5 L of oxygen 11/04/2020; T-max last 24 hours 100.3 F, new cultures negative to date, monitor off antibiotics Patient is off Levophed, blood pressures reasonable level, tracheostomy on T- piece 3 to 5 L nasal cannula oxygen 11/05/2020; tracheostomy on T-piece patient remains on 5 L of nasal cannula oxygen, unresponsive severe hypoxic brain injury I called patient's mother Ms. Pamela Bassett as well as patient's spouse Mr. Danilo Dimas at [phone] unable to reach them Left voicemail on Ms. Pamela Bassettz phone and encouraged him to call back 11/06/2020; I tried to call again today Ms. aPmela Bassett to discuss patient's condition and treatment plan and update consultants recommendations and patient's prognosis., unable to reach her 11/10/2020; family conference was held by case management yesterday 11/09/2020, family decided and agreed for SNF placement 11/11/2020; patient seen and examined, clinically no change tracheostomy on 5 L of nasal cannula oxygen, hemodynamically and clinically stable for discharge To LTAC versus SNF, DC planning per case management 11/12/2020; clinically no change, continue current management, DC planning per case management possible SNF placement 11/13/2020; patient is receiving herpes flareup treatment per ID 11/14/2020; clinically no change, awaiting SNF placement 11/15/2020; clinically no change, tracheostomy on T-piece on 5 L oxygen, awaiting placement 11/16/2020; patient awaiting placement 11/17/20; patient had CT abdomen, no pancreatic tumor insulinoma noted, awaiting placement The high probability of a clinically significant, sudden or life threatening deterioration of the [MULTIPLE ORGAN] system(s) required my full and direct attention, intervention and personal management. The aggregate critical care time was [31] minutes. This time is in addition to time spent performing reported procedures but includes the following: [X] Data Review and interpretation [X] Patient assessment and monitoring of vital signs [X] Documentation [X] Medication orders and management History Interval history: I have seen and examined the patient at the bedside Patient's chart and medications reviewed, No new events reported by the nursing Patient remains noncommunicative, tracheostomy on T-tube with 4-5 L of nasal cannula Vital signs reviewed Hospitalist Physical - Constitutional Vitals: Temp Pulse Resp BP Pulse Ox 99.0 F 102 H 10 L 128/87 97 11/17/20 08:00 11/17/20 08:41 11/17/20 07:30 11/17/20 08:41 11/17/20 07:30 General appearance: Present: no acute distress, well-nourished, obese, other (Patient is restless) - EENT Eyes: Present: PERRL, EOM intact - Neck Neck: Present: supple, normal ROM - Respiratory Respiratory effort: normal Respiratory: bilateral: diminished, negative: rales, rhonchi, wheezing - Cardiovascular Rhythm: regular Heart Sounds: Present: S1 & S2 - Extremities Extremities: no ischemia, No edema - Abdominal General gastrointestinal: soft, non-tender, non-distended, normal bowel sounds - Integumentary Integumentary: Present: clear - Psychiatric Psychiatric: appropriate mood/affect, cooperative - Neurologic Neurologic: CNII-XII intact, moves all extremities HEART Score - HEART Score Age: < 45 Risk factors: 1-2 risk factors - Critical Actions Critical Actions: >7 pts:50-65% risk of adverse cardiac event. Early invasive measures Results - Labs CBC & Chem 7: 11/07/20 04:44 11/13/20 10:05 Labs: Laboratory Last Values WBC 10.2 K/mm3 (4.5-11.0) 11/07/20 04:44 RBC 3.88 M/mm3 (3.65-5.03) 11/07/20 04:44 Hgb 11.0 gm/dl (10.1-14.3) 11/07/20 04:44 Hgb Comment See scanned result 10/04/20 Unknown Hct 32.6 % (30.3-42.9) 11/07/20 04:44 MCV 84 fl (79-97) 11/07/20 04:44 MCH 28 pg (28-32) 11/07/20 04:44 MCHC 34 % (30-34) 11/07/20 04:44 RDW 16.6 % (13.2-15.2) H 11/07/20 04:44 Plt Count 259 K/mm3 (140-440) 11/07/20 04:44 Lymph % (Auto) 15.2 % (13.4-35.0) 11/07/20 04:44 [place] % (Auto) 13.1 % (0.0-7.3) H 11/07/20 04:44 Eos % (Auto) 2.5 % (0.0-4.3) 11/07/20 04:44 Baso % (Auto) 0.6 % (0.0-1.8) 11/07/20 04:44 Lymph # (Auto) 1.6 K/mm3 (1.2-5.4) 11/07/20 04:44 [place] # (Auto) 1.3 K/mm3 (0.0-0.8) H 11/07/20 04:44 Eos # (Auto) 0.3 K/mm3 (0.0-0.4) 11/07/20 04:44 Baso # (Auto) 0.1 K/mm3 (0.0-0.1) 11/07/20 04:44 Add Manual Diff Complete 10/29/20 07:56 Total Counted 100 10/29/20 07:56 Seg Neutrophils % 68.6 % (40.0-70.0) 11/07/20 04:44 Seg Neuts % (Manual) 80.0 % (40.0-70.0) H 10/29/20 07:56 Band Neutrophils % 2.0 % 10/15/20 05:50 Lymphocytes % (Manual) 15.0 % (13.4-35.0) 10/29/20 07:56 Reactive Lymphs % (Man) 1.0 % 10/02/20 12:18 Monocytes % (Manual) 4.0 % (0.0-7.3) 10/29/20 07:56 Eosinophils % (Manual) 1.0 % (0.0-4.3) 10/29/20 07:56 Myelocytes % 2.0 % 10/02/20 13:05 Metamyelocytes % 1.0 % 10/14/20 04:00 Nucleated RBC % Not Reportable 10/29/20 07:56 Seg Neutrophils # 7.0 K/mm3 (1.8-7.7) 11/07/20 04:44 Seg Neutrophils # Man 10.9 K/mm3 (1.8-7.7) H 10/29/20 07:56 Band Neutrophils # 0.0 K/mm3 10/29/20 07:56 Lymphocytes # (Manual) 2.0 K/mm3 (1.2-5.4) 10/29/20 07:56 Abs React Lymphs (Man) 0.0 K/mm3 10/29/20 07:56 Monocytes # (Manual) 0.5 K/mm3 (0.0-0.8) 10/29/20 07:56 Eosinophils # (Manual) 0.1 K/mm3 (0.0-0.4) 10/29/20 07:56 Basophils # (Manual) 0.0 K/mm3 (0.0-0.1) 10/29/20 07:56 Metamyelocytes # 0.0 K/mm3 10/29/20 07:56 Myelocytes # 0.0 K/mm3 10/29/20 07:56 Promyelocytes # 0.0 K/mm3 10/29/20 07:56 Blast Cells # 0.0 K/mm3 10/29/20 07:56 WBC Morphology Not Reportable 10/29/20 07:56 Hypersegmented Neuts Not Reportable 10/29/20 07:56 Hyposegmented Neuts Not Reportable 10/29/20 07:56 Hypogranular Neuts Not Reportable 10/29/20 07:56 Smudge Cells Not Reportable 10/29/20 07:56 Toxic Granulation Not Reportable 10/29/20 07:56 Toxic Vacuolation Not Reportable 10/29/20 07:56 Dohle Bodies Not Reportable 10/29/20 07:56 Pelger-Huet Anomaly Not Reportable 10/29/20 07:56 Ester Rods Not Reportable 10/29/20 07:56 Platelet Estimate Consistent w auto 10/29/20 07:56 Clumped Platelets Not Reportable 10/29/20 07:56 Plt Clumps, EDTA Not Reportable 10/29/20 07:56 Large Platelets Few 10/29/20 07:56 Giant Platelets Not Reportable 10/29/20 07:56 Platelet Satelliting Not Reportable 10/29/20 07:56 Plt Morphology Comment Not Reportable 10/29/20 07:56 RBC Morphology Not Reportable 10/29/20 07:56 Dimorphic RBCs Not Reportable 10/29/20 07:56 Polychromasia Rare 10/29/20 07:56 Hypochromasia Few 10/29/20 07:56 Poikilocytosis Not Reportable 10/29/20 07:56 Anisocytosis Not Reportable 10/29/20 07:56 Microcytosis Not Reportable 10/29/20 07:56 Macrocytosis Not Reportable 10/29/20 07:56 Spherocytes Not Reportable 10/29/20 07:56 Pappenheimer Bodies Not Reportable 10/29/20 07:56 Sickle Cells Not Reportable 10/29/20 07:56 Target Cells Few 10/29/20 07:56 Tear Drop Cells Not Reportable 10/29/20 07:56 Ovalocytes Not Reportable 10/29/20 07:56 Stomatocytes Few 10/14/20 04:00 Helmet Cells Not Reportable 10/29/20 07:56 Burk-Rose Bodies Not Reportable 10/29/20 07:56 Asher Rings Not Reportable 10/29/20 07:56 [place] Cells Not Reportable 10/29/20 07:56 Bite Cells Not Reportable 10/29/20 07:56 Crenated Cell Not Reportable 10/29/20 07:56 Elliptocytes Not Reportable 10/29/20 07:56 Acanthocytes (Spur) Not Reportable 10/29/20 07:56 Rouleaux Not Reportable 10/29/20 07:56 Hemoglobin C Crystals Not Reportable 10/29/20 07:56 Schistocytes Not Reportable 10/29/20 07:56 Malaria parasites Not Reportable 10/29/20 07:56 Sickle Cell Solubility See scanned result 10/04/20 Unknown Hemoglobin A See scanned result 10/04/20 Unknown Hemoglobin A2 See scanned result 10/04/20 Unknown Hemoglobin A2 Prime See scanned result 10/04/20 Unknown Hemoglobin C See scanned result 10/04/20 Unknown Hemoglobin D See scanned result 10/04/20 Unknown Hemoglobin E See scanned result 10/04/20 Unknown Hgb F Diffential Stain See scanned result 10/04/20 Unknown Hemoglobin F Quant See scanned result 10/04/20 Unknown Hemoglobin G See scanned result 10/04/20 Unknown Hemoglobin S See scanned result 10/04/20 Unknown Hemoglobin O-[place] See scanned result 10/04/20 Unknown Hemoglobin [place] See scanned result 10/04/20 Unknown Hemoglobin Analilia See scanned result 10/04/20 Unknown Variant Hemoglobin See scanned result 10/04/20 Unknown Abnorm Hgb IEF Confirm See scanned result 10/04/20 Unknown Hemoglobin Interpret See scanned result 10/04/20 Unknown Hemoglobinopathy Note See scanned result 10/04/20 Unknown Sharad Bodies Not Reportable 10/29/20 07:56 Hem Pathologist Commnt No 10/29/20 07:56 PT 13.6 Sec. (12.2-14.9) 10/21/20 13:54 INR 1.06 (0.87-1.13) 10/21/20 13:54 APTT 31.6 Sec. (24.2-36.6) 10/03/20 00:40 Fibrinogen 336 mg/dl (211-480) 10/04/20 10:00 D-Dimer 1974.47 ng/mlDDU (0-234) H 11/11/20 13:50 ABG pH 7.459 pH Units (7.350-7.450) H 10/26/20 10:30 POC ABG pCO2 20.7 mmHg (32.0-48.0) L 10/13/20 07:18 ABG pCO2 32.4 mm Hg 10/26/20 10:30 POC ABG pO2 137.9 mmHg (83-108) H 10/13/20 07:18 ABG pO2 112.2 mm Hg (80.0-90.0) H 10/26/20 10:30 POC ABG HCO3 14.8 10/13/20 07:18 ABG HCO3 22.5 mmol/L (20.0-26.0) 10/26/20 10:30 ABG O2 Saturation 98.2 % (95.0-99.0) 10/26/20 10:30 ABG O2 Content 18.5 (0.0-44) 10/26/20 10:30 POC ABG Base Excess -6.9 10/13/20 07:18 ABG Base Excess -0.6 mmol/L (-2.0-3.0) 10/26/20 10:30 ABG Hemoglobin 13.5 gm/dl (12.0-16.0) 10/26/20 10:30 ABG Oxyhemoglobin 98.3 (94-98) H 10/13/20 07:18 ABG Carboxyhemoglobin 1.3 % (0.0-5.0) 10/26/20 10:30 ABG Methemoglobin 0.5 % (0.0-1.5) 10/26/20 10:30 ABG Sodium 135.9 mmol/L (136.0-145.0) L 10/13/20 07:18 ABG Potassium 3.7 mmol/L (3.40-4.50) 10/13/20 07:18 ABG Chloride 111.0 mmol/L (98-107) H 10/13/20 07:18 ABG Glucose 109 mg/dL (65-95) H 10/13/20 07:18 VBG pH 6.949 (7.320-7.420) L* 10/02/20 Unknown Oxyhemoglobin 96.5 % (95.0-99.0) 10/26/20 10:30 Carboxyhemoglobin 0.3 (0.5-1.5) L 10/13/20 07:18 FiO2 25 % 10/26/20 10:30 Sodium 138 mmol/L (137-145) 11/13/20 10:05 Potassium 4.3 mmol/L (3.6-5.0) 11/13/20 10:05 Chloride 101.7 mmol/L (98-107) 11/13/20 10:05 Carbon Dioxide 23 mmol/L (22-30) 11/13/20 10:05 Anion Gap 18 mmol/L 11/13/20 10:05 BUN 14 mg/dL (7-17) 11/13/20 10:05 Creatinine 0.6 mg/dL (0.6-1.2) 11/13/20 10:05 Estimated GFR > 60 ml/min 11/13/20 10:05 BUN/Creatinine Ratio 23 % 11/13/20 10:05 Glucose 114 mg/dL (65-100) H 11/13/20 10:05 POC Glucose 79 mg/dL (70-105) 11/16/20 17:51 Random Insulin 43.2 uIU/mL (<=19.6) H 11/02/20 19:19 Proinsulin See scanned result 11/02/20 19:19 C-Peptide 6.23 ng/mL (0.80-3.85) H 11/02/20 19:19 Lactic Acid 1.90 mmol/L (0.7-2.0) 10/04/20 22:00 Uric Acid 7.5 mg/dL (3.5-7.6) 10/02/20 13:05 Calcium 9.7 mg/dL (8.4-10.2) 11/13/20 10:05 Ionized Calcium 4.4 mg/dL (4.8-5.6) L 10/07/20 21:00 Phosphorus 4.60 mg/dL (2.5-4.5) H 11/13/20 10:05 Magnesium 2.10 mg/dL (1.7-2.3) 11/13/20 10:05 Total Bilirubin 0.50 mg/dL (0.1-1.2) 11/04/20 05:00 AST 90 units/L (5-40) H 11/04/20 05:00 ALT 36 units/L (7-56) 11/04/20 05:00 Alkaline Phosphatase 122 units/L (35-129) 11/04/20 05:00 Lactate Dehydrogenase 769 units/L (91-180) H 10/02/20 13:05 C-Reactive Protein 0.70 mg/dL (0.00-1.30) 11/11/20 13:50 NT-Pro-B Natriuret Pep 2788 pg/mL (0-450) H 10/04/20 10:00 Total Protein 7.4 g/dL (6.3-8.2) 11/04/20 05:00 Albumin 3.8 g/dL (3.9-5) L 11/04/20 05:00 Albumin/Globulin Ratio 1.1 % 11/04/20 05:00 Procalcitonin < 0.05 ng/mL (<0.15) 11/11/20 13:50 Arterial Blood Glucose 109 mg/dL (65-95) H 10/13/20 07:18 Arterial Blood Ionized Calcium 4.6 mg/dL (4.6-5.3) 10/13/20 07:18 Urine Color Yellow (Yellow) 11/11/20 13:50 Urine Turbidity Cloudy (Clear) 11/11/20 13:50 Urine pH 6.0 (5.0-7.0) 11/11/20 13:50 Ur Specific [place] 1.013 (1.003-1.030) 11/11/20 13:50 Urine Protein 100 mg/dl mg/dL (Negative) 11/11/20 13:50 Urine Glucose (UA) Neg mg/dL (Negative) 11/11/20 13:50 Urine Ketones Neg mg/dL (Negative) 11/11/20 13:50 Urine Blood Mod (Negative) 11/11/20 13:50 Urine Nitrite Pos (Negative) 11/11/20 13:50 Urine Bilirubin Neg (Negative) 11/11/20 13:50 Urine Urobilinogen 2.0 mg/dL (<2.0) 11/11/20 13:50 Ur Leukocyte Esterase Lg (Negative) 11/11/20 13:50 Urine WBC (Auto) > 182.0 /HPF (0.0-6.0) H 11/11/20 13:50 Urine RBC (Auto) > 182.0 /HPF (0.0-6.0) 11/11/20 13:50 U Epithel Cells (Auto) 1.0 /HPF (0-13.0) 11/11/20 13:50 Urine Bacteria (Auto) 4+ /HPF (Negative) 11/11/20 13:50 Urine WBC Clumps 3+ /HPF 11/11/20 13:50 Calcium Oxalate Crystal Few 11/11/20 13:50 Urine Mucus Few /HPF 11/11/20 13:50 Vancomycin Trough 12.6 ug/mL (5.0-20.0) 10/21/20 13:54 Random Vancomycin 10.7 ug/mL (0-40.0) 10/16/20 13:09 Phenytoin 5.7 ug/mL (10.0-20.0) L 10/13/20 07:00 C. difficile Tox (PCR) Positive (Negative) 10/16/20 10:22 Coronavirus (PCR) Negative (Negative) 10/08/20 14:15 Blood Type O POSITIVE 10/02/20 12:50 Antibody Screen Negative 10/02/20 12:50 Crossmatch See Detail 10/02/20 12:50 - Diagnostic Impressions Diagnostic Impressions: Echocardiogram 10/03/20 13:42 Transthoracic Echocardiogram Indication: S/P Cardiac Arrest R/O Cardiomyopathy BP: 133/71 Conclusions *Global left ventricular systolic function is normal. *The estimated ejection fraction is 60-65%. *There is trace of mitral regurgitation. *The right 0heart chambers are both slightly dilated. *There is mild tricuspid regurgitation. *There is mild-moderate pulmonary hypertension. *The right ventricular systolic pressure is calculated at 44 mmHg. *The study quality is technically difficult. Findings Procedure Info: The study quality is technically difficult. The study is technically limited due to patient body habitus. The study was technically limited due to the patient's inability to lay in the left lateral decubitus position. Left Ventricle: The left ventricular chamber size is normal. There is no left ventricular hypertrophy. Global left ventricular systolic function is normal. The estimated ejection fraction is 60-65%. Left Atrium: The left atrial chamber size is normal. Right Ventricle: The right ventricle is slightly dilated. Right Atrium: The right atrium is mildly dilated. Aortic Valve: The aortic valve leaflets are mildly thickened. There is no evidence of aortic regurgitation. There is no evidence of aortic stenosis. Mitral Valve: The mitral valve leaflets are mildly thickened. There is trace of mitral regurgitation. There is no evidence of mitral stenosis. Tricuspid Valve: There is mild tricuspid regurgitation. The right ventricular systolic pressure is calculated at 44 mmHg. There is evidence of mild pulmonary hypertension. Pulmonic Valve: There is trace pulmonic regurgitation. Pericardium: There is no pericardial effusion. Aorta: There is no dilatation of the ascending aorta. There is no dilatation of the aortic root. Venous: The inferior vena cava is dilated. Measurements Chambers 2D Name Value Normal Range IVSd (2D) 1 cm (0.6 - 1.1) LVPWd (2D) 1.01 cm (0.6 - 1.1) LVIDd (2D) 4.58 cm (3.7 - 5.6) LVIDs (2D) 3.17 cm (2 - 3.8) LV FS (2D) 30.93 % - EF Teichholz (2D) 58.66 % - Ao root diameter (2D) 2.94 cm (2 - 3.7) Volumes/Mass Name Value Normal Range LA ESV SP 4CH (A/L) 72.82 ml - LA ESV SP 2CH (A/L) 66.86 ml - LA ESV BP (A/L) 74.49 ml - LA ESV SP 4CH (MOD) 71.03 ml - LA ESV SP 2CH (MOD) 64.3 ml - LV EDV SP 4CH (MOD) 98.82 ml - LV ESV SP 4CH (MOD) 24.8 ml - EF SP 4CH (MOD) 74.9 % - LV EDV SP 2CH (MOD) 86.1 ml - LV ESV SP 2CH (MOD) 36.93 ml - EF SP 2CH (MOD) 57.11 % - LV EDV BP 94.4 ml - LV ESV BP 32.66 ml - BP EF (MOD) 65.4 % - Diastolic/Systolic Function Name Value Normal Range MV E-wave Vmax 1.04 m/sec - MV deceleration time 160.46 msec - MV A-wave Vmax 0.92 m/sec - MV E:A ratio 1.14 ratio - Aortic Valve Name Value Normal Range AV Vmax 2.12 m/sec - AV VTI 22.37 cm - AV peak gradient 17.95 mmHg - AV mean gradient 7.29 mmHg - LVOT diameter 2.01 cm - LVOT Vmax 1.8 m/sec - LVOT VTI 27.17 cm - LVOT peak gradient 12.91 mmHg - LVOT mean gradient 6.83 mmHg - SV LVOT 86.42 ml - ANITA (continuity Vmax) 2.7 cm2 - ANITA (continuity VTI) 3.86 cm2 - Ascending Ao 3.18 cm - Tricuspid Valve Name Value Normal Range TV E-wave Vmax 0.88 m/sec - TR Vmax 3.01 m/sec - TR peak gradient 36.27 mmHg - RAP 8 mmHg - RVSP 44 mmHg - IVC diameter 2.65 cm (1.2 - 2.3) Pulmonic Valve/Qp:Qs Name Value Normal Range PV Vmax 1.22 m/sec - PV peak gradient 5.91 mmHg - RVOT Vmax 0.87 m/sec - RVOT VTI 13.32 cm - RVOT peak gradient 3 mmHg - PV acceleration time 110.37 msec - [place]/IV: Voiding Method External Female Catheter IV Catheter Type [Right Foot] INT / Saline Lock IV Catheter Type [Left Forearm Peripheral IV ] IV Catheter Type [Left Wrist] INT / Saline Lock IV Catheter Type [Right Hand] INT / Saline Lock IV Catheter Type [Right INT / Saline Lock Antecubital] IV Catheter Type [Right Upper Mid-line arm] IV Catheter Type [Left Triple Lumen Cath Internal Jugular] IV Catheter Type [Left Hand] Peripheral IV IV Catheter Type [Left Peripheral IV Antecubital] Active Medications - Current Medications Current Medications: Generic Name Dose Route Start Last Admin Trade Name Freq PRN Reason Stop Dose Admin Acetaminophen 650 mg 10/05/20 16:34 11/16/20 21:11 Acetaminophen 325 Mg/10.15 Ml Oral Liqd Unit Dose FEEDTUBE 650 mg Q6H PRN Administration Non Cardiac Pain or Temp>100.5 Albuterol 2.5 mg 11/05/20 13:03 11/06/20 13:04 Albuterol 2.5 Mg/3 Ml Nebu IH 2.5 mg Q4HRT PRN Administration Shortness Of Breath Lipase/Protease/Amylase 1 each 10/05/20 11:09 Lipase 10,500/Protease 25,000/Amylase 43,750 (Units) Dr Barakat FEEDTUBE PRN PRN For Clogged Feeding Tube Enoxaparin Sodium 40 mg 10/22/20 10:00 11/16/20 10:33 Enoxaparin 40 Mg/0.4 Ml Inj SUB-Q 40 mg DAILY ERINN Administration Protocol Famotidine 20 mg 10/07/20 10:00 11/16/20 21:12 Famotidine 20 Mg Tab PO 20 mg BID ERINN Administration Furosemide 40 mg 10/17/20 10:00 11/16/20 10:29 Furosemide 40 Mg Tab PO 40 mg QDAY ERINN Administration Hydralazine HCl 20 mg 10/07/20 11:49 10/17/20 07:20 Hydralazine 20 Mg/1 Ml Inj IV 20 mg Q6H PRN Administration SBP >170 Hydralazine HCl 50 mg 10/17/20 09:00 11/17/20 05:19 Hydralazine 25 Mg Tab PO 50 mg Q8HR ERINN Administration Dextrose 1,000 mls @ 75 mls/hr 10/13/20 11:00 11/17/20 05:18 D10w IV 75 mls/hr DIRECT ERINN Administration Labetalol HCl 300 mg 11/16/20 17:00 11/17/20 08:41 Labetalol 200 Mg Tab PO 300 mg TID ERINN Administration Simple Syrup 15 ml 10/05/20 11:09 Simple Syrup 15 Ml FEEDTUBE PRN PRN Hypoglycemia Simple Syrup 30 ml 10/05/20 11:09 Simple Syrup 15 Ml FEEDTUBE PRN PRN Hypoglycemia Sodium Bicarbonate 325 mg 10/05/20 11:09 11/16/20 16:54 Sodium Bicarbonate 325 Mg Tab FEEDTUBE 325 mg PRN PRN Administration For Clogged Feeding Tube Sodium Bicarbonate 1,300 mg 10/13/20 14:00 11/16/20 21:01 Sodium Bicarbonate 650 Mg Tab PO 1,300 mg TID ERINN Administration Topiramate 50 mg 10/05/20 11:00 11/16/20 21:14 Topiramate Tab 25 Mg Tab PO 50 mg Q12HR ERINN Administration Nutrition/Malnutrition Assess - Dietary Evaluation Nutrition/Malnutrition Findings: Nutrition Notes Start: 10/04/20 11:13 Freq: Status: Active Protocol: Document 11/10/20 11:16 CW (Rec: 11/10/20 11:23 CW [id number]) Co-Sign 11/10/20 11:16 LP Nutrition Notes Initial or Follow up Reassessment Current Diagnosis Acute Kidney Injury, Respiratory Failure Other Pertinent Diagnosis C-Diff, Cardiac arrest, s/p c- sectuion and supracervial hysterectomy Current Diet Jevity 1.2 at 60 ml/hr Labs/Tests reviewed Pertinent Medications lasix D10w at 75ml/hr Height 5 ft 8 in Weight 105.3 kg [place] Body Weight (kg) 63.63 BMI 35.3 Weight change and time frame Wt change noted, pt on lasix Weight Status Morbidly Obese Subjective/Other Information FU for TF tolerance, POC. Pt remains on T-piece with TF running at goal and D10w infusing. Per chart, discussed POC with family and pending SNF placement. Per RN, pt tolerating TF. Percent of energy/protein needs met: 100%/100% Burn Absent Trauma Absent GI Symptoms None Food Allergy Yes Current % PO Negligible Minimum of two criteria No Fluid Accumulation Mild (non-severe) #1 Nutrition Diagnosis Inadequate oral intake Diagnosis Progress(for reassessment Continues documentation) Is patient on ventilator? No Is Patient Ambulatory and/or Out of Bed No REE-([facility]-confined to bed) [phone] Kcal/Kg value to use for calculation 16 Approximate Energy Requirements Using 1685 kcal/Kg Calculation Used for Recommendations Kcal/kg Additional Notes Protein needs are 68-85g (0.8- 1g/kg AdjBW 85kg) Fluid needs are 1ml/kcal Nutrition Intervention Change Diet Order: Continue Nutrition Support: Jevity 1.2 at 60ml/hr. Flush 100ml q4h. Kcal 1,782 Protein (gm) 87 Fluid (mL) 1,259 Goal #1 TF tolerance Goal #2 Meet at least 75% of energy and protein needs Anticipated Discharge Needs: Unable to determine at this time Follow-Up By: 11/17/20 Additional Comments FU for TF tolerance, POC
[2020-11-17] MEDS: ENOXAPARIN 40 MG/0.4 ML INJ SUB-Q SCH (10:30)
[2020-11-17] MEDS: SODIUM BICARBONATE 650 MG TAB PO SCH ×3 (10:30→21:19)
[2020-11-17] MEDS: FUROSEMIDE 40 MG TAB PO SCH (10:31)
[2020-11-17] MEDS: FAMOTIDINE 20 MG TAB PO SCH ×2 (10:31→21:20)
[2020-11-17] MEDS: TOPIRAMATE TAB 25 MG TAB PO SCH ×2 (10:31→21:21)
--- NOTE | 2020-11-17 11:44 | Progress Note ---
Assessment and Plan 30 y/o female with Eclampsia, s/p emergent section with DIC, acute respiratory failure and worsening renal function. 11/17/20: I have no further ideas in work up in regards to persistent hypoglycemia, despite continuous infusion of D10. All of her markers are elevated that would suggest insulinoma but unable to prove this with imaging. Patient needs transfer to a tertiary care center with Endocrinology available for consultation. Pulm status stable. Will see PRN. 11/16/20: STeroids have not helped so will stop today. Obtain CT scan as instructed to order by Radiology. If tumor present will need transfer to tertiary care center with inpatient endocrinology. Prognosis remains guarded. 11/15/20: Will go to radiology tomorrow morning. Will likely stop stress dose steroids tomorrow as no real improvement in sugars. COntinue Trach collar. Needs rehab. ProInsulin is back at 38.2 11/14/20: Will speak with radiology again on Monday to ask them to help me with the ordering of the scan. Continue stress dose steroids at least through tomorrow. No real change in blood sugars as of yet. 11/13/20: Attempt a trial of stress dose steroids to see if this improves sugar levels. I have called CT 3x but no answer. Will go down there and see if they are able to do a CT of the abdomen with pancreas protocol to observe for insulinoma. Continue supportive care and airway maintenance therapy. 11/12/20: Continue D10. I have reached out to an endocrine physician from an outside hospital who is willing to help me with the work up and possible help with diagnosis. 11/11/20: Call labs today about proinuslin. Signed letter for family today. Needs endocrine consult but not available here. 11/10/20: If proinsulin not back by tomorrow will call lab. Once I have all info, will see if I can obtain and endocrine consult via phone to discuss case. Continue supplemental oxygen. Needs PT 11/09/20: Follow up Proinsulin levels. No endocrine consult available here, but will do more research to see if we can find out why she remains D10 dependent. Pulm status is stable. Continue T-piece. Not a candidate for floor given D10 requirement. 11/06/20: No new recs. Will continue to check for outside lab results over the weekend. 11/05/20: Awaiting outside labs to work up hypoglycemia. Will add some PRN albuterol nebs to see if this will help to thin out her secretions. 11/04/20: No changes. No new recs. Awaiting send out labs to help figure out hypoglycemia. 11/03/20: Continue D10. Await send out labs. 11/02/20: Called lab today to ask how to order these send out labs. Continue D10 along with feeds for now. Stopped robinol and no further reports of increased thickness of secretions. given D10 requirement, do not feel comfortable with transition to the floor. 11/01/20: Will stop Robinol as this may be making secretions to thick. Huge ris k for mucous plugging given mental state. Continue D10 and waiting on labs from yesterday. LFT's repeated and AST elevated along with alk phos. Both of these were elevated on admission, then resolved and now are elevated again. In current clinical state, not sure what to make of those numbers. They do not help with trying to figure out hypoglycemia and persistent need for D10. Continue IMCU care. 10/31/20: Will order midline for IV team vs peripheral IV's (multiple). Needs a ccess for d10 as we have not been able to figure out why she is so hypoglyemic. Will measure serum insulin levels and C-peptide levels, as well proinsulin. All of these labs are sendouts so will have to call down to ask how to order as they are not coming up in [facility]. Given her requirement for supplemental IV sugar, not a candidate for floor transfer. 10/30/20: Continue step down monitoring for now. If does well the next 24-36 hours, then will consider floor transfer. Really needs to continue PT with PROM. Will speak with CM about options for here now that critical needs are becoming minimal. 10/29/20: Off vent now for 24 hours. Tolerating T-Piece. Will transition to step down for a few days. If does well there, consider transition to floor. Continue PT. Guarded prognosis. 10/28/20: Daily T-piece trials for as long as tolerated. Attempt to push further daily. OT does not do passive range of motion. Per PT note will do passive range of motion with patient. Guarded prognosis. Hoping to wean off vent and transition to floor. 10/27/20: Continue daily T-piece trials for as long as tolerated. Ok with resting on either PSV or full rate if needed at night but need to strengthen her respiratory muscles. PT/OT if possible. Will transition to step down prior to going to floor to insure stability. 10/26/20: Will obtain ABG today. If good, will attempt on T-piece later. Continue PT/OT. Will speak with CM about possibility of LTACH or nursing fac ility that can take trached patients. 10/23/20: Daily PSV trials for as long as patient will tolerate. Needs PT/OT consult for passive range of motion. 10/22/20: Will start prolonged PSV trials. Attempt to wean from vent and then transition to floor to see if mental status improves. Continue tube feeds. 10/21/20: Trach and peg placed. No sedation. Restart Lovenox for Upper Ext DVT. Restart feeds when surgery states ok to use PEG. C. Diff treatment per ID. Guarded prognosis. Will be a roasterman wean. Hopeful to wean off vent at least and then can transfer to floor. 10/20/20: NPO after midnight. DVT study just read from 10/14 on yesterday showing upper ext DVT. Started on Lovenox but need to hold therapy until after surgery. could be source of fevers. No sedation. 10/19/20: Stable BP. Will meet/talk with family at noon over the phone with myself and case management. Need to discuss goals of care and what next steps would be. Patient would need trach and peg and transfer to LTACH if family ok with this. Follow up speciation of GNR's in blood. Has been on Cefepime. Continues therapy for C. Diff. Guarded prognosis. Continue daily PSV trials but not ready for extubation secondary to mental state. 10/18/20: Blood pressure is much better with the addition of meds started on yesterday. Need to have family meeting jesica in regards to goals of care. Continue Daily PSV trials but not ready for extubation. Continue therapy for C. Diff per ID. 10/17/20: CT scan was of no help in regards to fevers. C. Diff is positive and BP now is more uncontrolled despite increasing labetalol. Today will increase to 300 TID. Added TID Hydralazine and added PO lasix given her mild pulmonary htn seen on echo. Spoke with mother over the phone and she requests to come see the patient. Given current circumstances, will allow her to come briefly today and then will speak with her at the bedside. No neurology is available at the time and suspect these will be the majority of her questions. Tolerated PSV briefly yesterday and will do again today but not for extended periods as given her mental state she is not a candidate for extubation. I will also ask the mo ther about snf care (trach and peg) when she comes today. Overall prognosis is guarded to poor. If oral meds cannot regulate blood pressure, may need Cardene drip. Continue therapy for C. Diff per ID. Subjective Date of service: 11/17/20 Principal diagnosis: Eclampsia/HELLP Syndrome, ADOLPH, DIC; s/p , s/p supracervical hyst Interval history: CT shows not evidence of pancreatic lesion. Objective Vital Signs - 12hr 11/17/20 11/17/20 11/17/20 00:00 00:30 01:00 Temperature 98.3 F Pulse Rate 91 H 97 H 87 Pulse Rate [ 89 From Monitor] Respiratory 20 32 H 31 H Rate Blood Pressure 126/73 121/81 116/78 O2 Sat by Pulse 98 99 99 Oximetry O2 Sat by Pulse Oximetry [ Assessment] 11/17/20 11/17/20 11/17/20 01:30 02:00 02:30 Temperature Pulse Rate 86 98 H 102 H Pulse Rate [ From Monitor] Respiratory 19 18 22 Rate Blood Pressure 119/79 118/81 118/81 O2 Sat by Pulse 99 99 100 Oximetry O2 Sat by Pulse Oximetry [ Assessment] 11/17/20 11/17/20 11/17/20 03:01 03:30 04:00 Temperature 99.6 F Pulse Rate 100 H 86 90 Pulse Rate [ 94 H From Monitor] Respiratory 21 20 21 Rate Blood Pressure 140/76 118/80 118/85 O2 Sat by Pulse 99 97 97 Oximetry O2 Sat by Pulse Oximetry [ Assessment] 11/17/20 11/17/20 11/17/20 04:30 05:00 05:19 Temperature Pulse Rate 95 H 92 H 81 Pulse Rate [ From Monitor] Respiratory 26 H Rate Blood Pressure 123/84 133/88 133/88 O2 Sat by Pulse 99 98 Oximetry O2 Sat by Pulse Oximetry [ Assessment] 11/17/20 11/17/20 11/17/20 05:30 06:00 06:30 Temperature Pulse Rate 80 82 88 Pulse Rate [ From Monitor] Respiratory 18 19 25 H Rate Blood Pressure 126/81 110/67 120/79 O2 Sat by Pulse 98 99 100 Oximetry O2 Sat by Pulse Oximetry [ Assessment] 11/17/20 11/17/20 11/17/20 07:00 07:30 08:00 Temperature 99.0 F Pulse Rate 95 H 91 H 100 H Pulse Rate [ 100 H From Monitor] Respiratory 16 10 L 19 Rate Blood Pressure 121/75 133/82 129/80 O2 Sat by Pulse 98 97 97 Oximetry O2 Sat by Pulse Oximetry [ Assessment] 11/17/20 11/17/20 11/17/20 08:30 08:41 09:00 Temperature Pulse Rate 102 H 102 H 97 H Pulse Rate [ From Monitor] Respiratory 26 H 19 Rate Blood Pressure 128/87 128/87 128/87 O2 Sat by Pulse 97 97 Oximetry O2 Sat by Pulse Oximetry [ Assessment] 11/17/20 11/17/20 11/17/20 09:30 10:00 10:30 Temperature Pulse Rate 88 81 96 H Pulse Rate [ From Monitor] Respiratory 17 19 19 Rate Blood Pressure 125/80 125/72 139/93 O2 Sat by Pulse Oximetry O2 Sat by Pulse Oximetry [ Assessment] 11/17/20 11/17/20 11/17/20 10:50 10:53 11:00 Temperature Pulse Rate 90 Pulse Rate [ From Monitor] Respiratory 21 Rate Blood Pressure 127/74 O2 Sat by Pulse 99 100 Oximetry O2 Sat by Pulse 100 Oximetry [ Assessment] Constitutional: comatose, other (s/p trach) Eyes: non-icteric ENT: oropharynx moist Neck: other (large in cirumference) Effort: normal Ascultation: Bilateral: clear, diminished breath sounds, rhonchi, other (coarse BS bilaterally) Percussion: Bilateral: not dull Cardiovascular: regular rate and rhythm, other (no mrg) Gastrointestinal: normoactive bowel sounds, soft Extremities: no cyanosis, pink and warm Neurologic: other (unresponsive, not following commands, not tracking) Psychiatric: other (unable to assess) CBC and BMP: 11/07/20 04:44 11/13/20 10:05 ABG, PT/INR, D-dimer: ABG ABG pH 7.459 pH Units (7.350-7.450) H 10/26/20 10:30 POC ABG pCO2 20.7 mmHg (32.0-48.0) L 10/13/20 07:18 ABG pCO2 32.4 mm Hg 10/26/20 10:30 POC ABG pO2 137.9 mmHg (83-108) H 10/13/20 07:18 ABG pO2 112.2 mm Hg (80.0-90.0) H 10/26/20 10:30 POC ABG HCO3 14.8 10/13/20 07:18 ABG O2 Saturation 98.2 % (95.0-99.0) 10/26/20 10:30 PT/INR, D-dimer PT 13.6 Sec. (12.2-14.9) 10/21/20 13:54 INR 1.06 (0.87-1.13) 10/21/20 13:54 D-Dimer 1974.47 ng/mlDDU (0-234) H 11/11/20 13:50 Abnormal lab findings: Abnormal Labs 10/02/20 10/02/20 10/02/20 12:03 12:18 12:18 WBC 14.9 H RBC Hgb 9.1 L Hct MCV MCH 22 L MCHC 28 L RDW 17.6 H Plt Count 102 L Lymph % (Auto) [place] % (Auto) Lymph # (Auto) [place] # (Auto) Baso # (Auto) Seg Neutrophils % Seg Neuts % (Manual) 36.0 L Lymphocytes % (Manual) 49.0 H Monocytes % (Manual) Nucleated RBC % 6.0 H Seg Neutrophils # Seg Neutrophils # Man Lymphocytes # (Manual) 7.3 H Monocytes # (Manual) PT INR APTT Fibrinogen D-Dimer ABG pH POC ABG pCO2 POC ABG pO2 ABG pO2 ABG HCO3 ABG Base Excess ABG Hemoglobin ABG Oxyhemoglobin ABG Sodium ABG Potassium ABG Chloride ABG Glucose VBG pH Oxyhemoglobin Carboxyhemoglobin Sodium 134 L Potassium Chloride Carbon Dioxide 12 L BUN 6 L Creatinine Glucose 390 H POC Glucose 451 H Random Insulin C-Peptide Lactic Acid Calcium Ionized Calcium Phosphorus Magnesium AST 135 H ALT 85 H Alkaline Phosphatase 172 H Lactate Dehydrogenase 641 H NT-Pro-B Natriuret Pep Total Protein 5.4 L Albumin 2.3 L Arterial Blood Glucose Arterial Blood Ionized Calcium Urine WBC (Auto) Vancomycin Trough Phenytoin Crossmatch 10/02/20 10/02/20 10/02/20 12:50 13:05 13:05 WBC 38.6 H RBC Hgb 8.9 L Hct 29.0 L MCV 73 L MCH 22 L MCHC RDW 17.2 H Plt Count Lymph % (Auto) [place] % (Auto) Lymph # (Auto) [place] # (Auto) Baso # (Auto) Seg Neutrophils % Seg Neuts % (Manual) Lymphocytes % (Manual) Monocytes % (Manual) Nucleated RBC % 2.0 H Seg Neutrophils # Seg Neutrophils # Man 20.1 H Lymphocytes # (Manual) 10.4 H Monocytes # (Manual) 2.3 H PT INR APTT Fibrinogen D-Dimer ABG pH POC ABG pCO2 POC ABG pO2 ABG pO2 ABG HCO3 ABG Base Excess ABG Hemoglobin ABG Oxyhemoglobin ABG Sodium ABG Potassium ABG Chloride ABG Glucose VBG pH Oxyhemoglobin Carboxyhemoglobin Sodium Potassium Chloride Carbon Dioxide BUN Creatinine Glucose POC Glucose Random Insulin C-Peptide Lactic Acid Calcium Ionized Calcium Phosphorus Magnesium AST 184 H ALT 113 H Alkaline Phosphatase Lactate Dehydrogenase 769 H NT-Pro-B Natriuret Pep Total Protein Albumin Arterial Blood Glucose Arterial Blood Ionized Calcium Urine WBC (Auto) Vancomycin Trough Phenytoin Crossmatch See Detail 10/02/20 10/02/20 10/02/20 16:25 16:35 16:35 WBC RBC Hgb Hct MCV MCH MCHC RDW Plt Count Lymph % (Auto) [place] % (Auto) Lymph # (Auto) [place] # (Auto) Baso # (Auto) Seg Neutrophils % Seg Neuts % (Manual) Lymphocytes % (Manual) Monocytes % (Manual) Nucleated RBC % Seg Neutrophils # Seg Neutrophils # Man Lymphocytes # (Manual) Monocytes # (Manual) PT INR APTT Fibrinogen D-Dimer ABG pH 7.031 L* POC ABG pCO2 POC ABG pO2 ABG pO2 116.8 H ABG HCO3 12.7 L ABG Base Excess -16.9 L ABG Hemoglobin 7.8 L ABG Oxyhemoglobin ABG Sodium ABG Potassium ABG Chloride ABG Glucose VBG pH Oxyhemoglobin 94.9 L Carboxyhemoglobin Sodium Potassium Chloride Carbon Dioxide BUN Creatinine Glucose 403 H POC Glucose Random Insulin C-Peptide Lactic Acid 11.40 H* Calcium 6.3 L D Ionized Calcium Phosphorus Magnesium AST 70 H ALT Alkaline Phosphatase Lactate Dehydrogenase NT-Pro-B Natriuret Pep Total Protein 1.9 L D Albumin 1.2 L Arterial Blood Glucose Arterial Blood Ionized Calcium Urine WBC (Auto) Vancomycin Trough Phenytoin Crossmatch 10/02/20 10/02/20 10/02/20 18:18 18:18 22:30 WBC 11.5 H RBC 2.06 L Hgb 5.5 L* D Hct 17.3 L* D MCV MCH 27 L MCHC RDW 19.5 H Plt Count 60 L Lymph % (Auto) [place] % (Auto) Lymph # (Auto) [place] # (Auto) Baso # (Auto) Seg Neutrophils % Seg Neuts % (Manual) Lymphocytes % (Manual) 8.0 L Monocytes % (Manual) 8.0 H Nucleated RBC % 8.0 H Seg Neutrophils # Seg Neutrophils # Man Lymphocytes # (Manual) 0.9 L Monocytes # (Manual) 0.9 H PT 37.1 H INR 3.71 H APTT 135.8 H* Fibrinogen D-Dimer ABG pH 7.067 L* POC ABG pCO2 POC ABG pO2 ABG pO2 183.0 H ABG HCO3 14.1 L ABG Base Excess -15.1 L ABG Hemoglobin 7.7 L ABG Oxyhemoglobin ABG Sodium ABG Potassium ABG Chloride ABG Glucose VBG pH Oxyhemoglobin Carboxyhemoglobin Sodium Potassium Chloride Carbon Dioxide BUN Creatinine Glucose POC Glucose Random Insulin C-Peptide Lactic Acid Calcium Ionized Calcium Phosphorus Magnesium AST ALT Alkaline Phosphatase Lactate Dehydrogenase NT-Pro-B Natriuret Pep Total Protein Albumin Arterial Blood Glucose Arterial Blood Ionized Calcium Urine WBC (Auto) Vancomycin Trough Phenytoin Crossmatch 10/02/20 10/02/20 10/03/20 Unknown Unknown 00:01 WBC RBC Hgb Hct MCV MCH MCHC RDW Plt Count Lymph % (Auto) [place] % (Auto) Lymph # (Auto) [place] # (Auto) Baso # (Auto) Seg Neutrophils % Seg Neuts % (Manual) Lymphocytes % (Manual) Monocytes % (Manual) Nucleated RBC % Seg Neutrophils # Seg Neutrophils # Man Lymphocytes # (Manual) Monocytes # (Manual) PT 61.1 H INR 6.92 H* APTT 158.7 H* Fibrinogen < 60 L* D-Dimer > 20994 H ABG pH POC ABG pCO2 POC ABG pO2 ABG pO2 ABG HCO3 ABG Base Excess ABG Hemoglobin ABG Oxyhemoglobin ABG Sodium ABG Potassium ABG Chloride ABG Glucose VBG pH 6.949 L* Oxyhemoglobin Carboxyhemoglobin Sodium Potassium Chloride Carbon Dioxide BUN Creatinine Glucose POC Glucose 196 H Random Insulin C-Peptide Lactic Acid Calcium Ionized Calcium Phosphorus Magnesium AST ALT Alkaline Phosphatase Lactate Dehydrogenase NT-Pro-B Natriuret Pep Total Protein Albumin Arterial Blood Glucose Arterial Blood Ionized Calcium Urine WBC (Auto) Vancomycin Trough Phenytoin Crossmatch 10/03/20 10/03/20 10/03/20 00:40 00:40 00:40 WBC RBC Hgb Hct MCV MCH MCHC RDW Plt Count Lymph % (Auto) [place] % (Auto) Lymph # (Auto) [place] # (Auto) Baso # (Auto) Seg Neutrophils % Seg Neuts % (Manual) Lymphocytes % (Manual) Monocytes % (Manual) Nucleated RBC % Seg Neutrophils # Seg Neutrophils # Man Lymphocytes # (Manual) Monocytes # (Manual) PT 15.1 H INR 1.21 H APTT Fibrinogen D-Dimer ABG pH POC ABG pCO2 POC ABG pO2 ABG pO2 ABG HCO3 ABG Base Excess ABG Hemoglobin ABG Oxyhemoglobin ABG Sodium ABG Potassium ABG Chloride ABG Glucose VBG pH Oxyhemoglobin Carboxyhemoglobin Sodium 136 L Potassium Chloride Carbon Dioxide BUN Creatinine 1.6 H D Glucose 106 H POC Glucose Random Insulin C-Peptide Lactic Acid 5.60 H* Calcium 6.5 L Ionized Calcium Phosphorus Magnesium AST 232 H ALT 104 H Alkaline Phosphatase Lactate Dehydrogenase NT-Pro-B Natriuret Pep Total Protein 3.9 L D Albumin 2.4 L Arterial Blood Glucose Arterial Blood Ionized Calcium Urine WBC (Auto) Vancomycin Trough Phenytoin Crossmatch 10/03/20 10/03/20 10/03/20 02:08 02:08 02:08 WBC 17.6 H RBC 3.27 L Hgb 9.9 L D Hct 29.9 L D MCV MCH MCHC RDW 16.5 H Plt Count 75 L Lymph % (Auto) [place] % (Auto) Lymph # (Auto) [place] # (Auto) Baso # (Auto) Seg Neutrophils % Seg Neuts % (Manual) 76.0 H Lymphocytes % (Manual) Monocytes % (Manual) Nucleated RBC % 8.0 H Seg Neutrophils # Seg Neutrophils # Man 13.4 H Lymphocytes # (Manual) Monocytes # (Manual) PT INR APTT Fibrinogen D-Dimer ABG pH POC ABG pCO2 POC ABG pO2 ABG pO2 ABG HCO3 ABG Base Excess ABG Hemoglobin ABG Oxyhemoglobin ABG Sodium ABG Potassium ABG Chloride ABG Glucose VBG pH Oxyhemoglobin Carboxyhemoglobin Sodium Potassium Chloride Carbon Dioxide 19 L BUN Creatinine 1.4 H Glucose 306 H POC Glucose Random Insulin C-Peptide Lactic Acid 10.50 H* Calcium 6.4 L Ionized Calcium Phosphorus Magnesium AST ALT Alkaline Phosphatase Lactate Dehydrogenase NT-Pro-B Natriuret Pep Total Protein Albumin Arterial Blood Glucose Arterial Blood Ionized Calcium Urine WBC (Auto) Vancomycin Trough Phenytoin Crossmatch 10/03/20 10/03/20 10/03/20 02:42 03:59 05:31 WBC RBC Hgb Hct MCV MCH MCHC RDW Plt Count Lymph % (Auto) [place] % (Auto) Lymph # (Auto) [place] # (Auto) Baso # (Auto) Seg Neutrophils % Seg Neuts % (Manual) Lymphocytes % (Manual) Monocytes % (Manual) Nucleated RBC % Seg Neutrophils # Seg Neutrophils # Man Lymphocytes # (Manual) Monocytes # (Manual) PT INR APTT Fibrinogen D-Dimer ABG pH 7.144 L POC ABG pCO2 54.4 H POC ABG pO2 ABG pO2 ABG HCO3 ABG Base Excess ABG Hemoglobin 10.0 L ABG Oxyhemoglobin ABG Sodium ABG Potassium ABG Chloride 108.0 H ABG Glucose 306 H VBG pH Oxyhemoglobin Carboxyhemoglobin Sodium Potassium Chloride Carbon Dioxide BUN Creatinine Glucose POC Glucose 209 H Random Insulin C-Peptide Lactic Acid 9.20 H* Calcium Ionized Calcium Phosphorus Magnesium AST ALT Alkaline Phosphatase Lactate Dehydrogenase NT-Pro-B Natriuret Pep Total Protein Albumin Arterial Blood Glucose 306 H Arterial Blood Ionized Calcium 3.7 L Urine WBC (Auto) Vancomycin Trough Phenytoin Crossmatch 10/03/20 10/03/20 10/03/20 09:00 09:00 09:00 WBC 27.4 H RBC 2.84 L Hgb 8.5 L Hct 25.1 L MCV MCH MCHC RDW 16.1 H Plt Count 72 L Lymph % (Auto) [place] % (Auto) Lymph # (Auto) [place] # (Auto) Baso # (Auto) Seg Neutrophils % Seg Neuts % (Manual) Lymphocytes % (Manual) 11.0 L Monocytes % (Manual) Nucleated RBC % 3.0 H Seg Neutrophils # Seg Neutrophils # Man 18.4 H Lymphocytes # (Manual) Monocytes # (Manual) 1.9 H PT INR APTT Fibrinogen D-Dimer ABG pH POC ABG pCO2 POC ABG pO2 ABG pO2 ABG HCO3 ABG Base Excess ABG Hemoglobin ABG Oxyhemoglobin ABG Sodium ABG Potassium ABG Chloride ABG Glucose VBG pH Oxyhemoglobin Carboxyhemoglobin Sodium Potassium Chloride Carbon Dioxide BUN Creatinine 1.7 H Glucose 216 H POC Glucose Random Insulin C-Peptide Lactic Acid 9.20 H* Calcium 6.3 L Ionized Calcium Phosphorus Magnesium AST 331 H ALT 171 H Alkaline Phosphatase Lactate Dehydrogenase NT-Pro-B Natriuret Pep Total Protein 3.7 L Albumin 1.9 L Arterial Blood Glucose Arterial Blood Ionized Calcium Urine WBC (Auto) Vancomycin Trough Phenytoin Crossmatch 10/03/20 10/03/20 10/03/20 11:20 11:46 11:50 WBC 28.7 H RBC 2.67 L Hgb 8.0 L Hct 23.7 L MCV MCH MCHC RDW 16.6 H Plt Count 76 L Lymph % (Auto) [place] % (Auto) Lymph # (Auto) [place] # (Auto) Baso # (Auto) Seg Neutrophils % Seg Neuts % (Manual) Lymphocytes % (Manual) Monocytes % (Manual) Nucleated RBC % Seg Neutrophils # Seg Neutrophils # Man Lymphocytes # (Manual) Monocytes # (Manual) PT INR APTT Fibrinogen D-Dimer ABG pH POC ABG pCO2 POC ABG pO2 ABG pO2 ABG HCO3 ABG Base Excess ABG Hemoglobin ABG Oxyhemoglobin ABG Sodium ABG Potassium ABG Chloride ABG Glucose VBG pH Oxyhemoglobin Carboxyhemoglobin Sodium Potassium Chloride Carbon Dioxide BUN Creatinine Glucose POC Glucose 125 H Random Insulin C-Peptide Lactic Acid 8.00 H* Calcium Ionized Calcium Phosphorus Magnesium AST ALT Alkaline Phosphatase Lactate Dehydrogenase NT-Pro-B Natriuret Pep Total Protein Albumin Arterial Blood Glucose Arterial Blood Ionized Calcium Urine WBC (Auto) Vancomycin Trough Phenytoin Crossmatch 10/03/20 10/04/20 10/04/20 11:50 00:40 00:40 WBC RBC Hgb 6.8 L Hct 19.4 L* MCV MCH MCHC RDW Plt Count 49 L Lymph % (Auto) [place] % (Auto) Lymph # (Auto) [place] # (Auto) Baso # (Auto) Seg Neutrophils % Seg Neuts % (Manual) Lymphocytes % (Manual) Monocytes % (Manual) Nucleated RBC % Seg Neutrophils # Seg Neutrophils # Man Lymphocytes # (Manual) Monocytes # (Manual) PT INR APTT Fibrinogen D-Dimer ABG pH 7.244 L POC ABG pCO2 POC ABG pO2 ABG pO2 ABG HCO3 ABG Base Excess -4.5 L ABG Hemoglobin 7.3 L ABG Oxyhemoglobin ABG Sodium ABG Potassium ABG Chloride ABG Glucose VBG pH Oxyhemoglobin Carboxyhemoglobin Sodium Potassium Chloride Carbon Dioxide BUN Creatinine Glucose POC Glucose Random Insulin C-Peptide Lactic Acid Calcium Ionized Calcium Phosphorus Magnesium AST ALT Alkaline Phosphatase Lactate Dehydrogenase NT-Pro-B Natriuret Pep Total Protein Albumin Arterial Blood Glucose Arterial Blood Ionized Calcium Urine WBC (Auto) Vancomycin Trough Phenytoin Crossmatch 10/04/20 10/04/20 10/04/20 03:53 10:00 10:00 WBC 14.6 H RBC 2.57 L Hgb 7.6 L Hct 22.5 L MCV MCH MCHC RDW 15.8 H Plt Count 38 L Lymph % (Auto) 7.7 L [place] % (Auto) Lymph # (Auto) 1.1 L [place] # (Auto) 0.9 H Baso # (Auto) Seg Neutrophils % 85.6 H Seg Neuts % (Manual) Lymphocytes % (Manual) Monocytes % (Manual) Nucleated RBC % Seg Neutrophils # 12.5 H Seg Neutrophils # Man Lymphocytes # (Manual) Monocytes # (Manual) PT INR APTT Fibrinogen D-Dimer ABG pH POC ABG pCO2 POC ABG pO2 110.6 H ABG pO2 ABG HCO3 ABG Base Excess ABG Hemoglobin 6.7 L ABG Oxyhemoglobin ABG Sodium 132.0 L ABG Potassium ABG Chloride ABG Glucose 111 H VBG pH Oxyhemoglobin Carboxyhemoglobin Sodium 134 L D Potassium Chloride 97.6 L Carbon Dioxide BUN Creatinine 1.7 H Glucose POC Glucose Random Insulin C-Peptide Lactic Acid Calcium 6.3 L Ionized Calcium Phosphorus Magnesium AST 203 H ALT 81 H Alkaline Phosphatase Lactate Dehydrogenase NT-Pro-B Natriuret Pep Total Protein 3.9 L Albumin 2.3 L Arterial Blood Glucose 111 H Arterial Blood Ionized Calcium 3.5 L Urine WBC (Auto) Vancomycin Trough Phenytoin Crossmatch 10/04/20 10/04/20 10/04/20 10:00 10:00 10:14 WBC RBC Hgb Hct MCV MCH MCHC RDW Plt Count Lymph % (Auto) [place] % (Auto) Lymph # (Auto) [place] # (Auto) Baso # (Auto) Seg Neutrophils % Seg Neuts % (Manual) Lymphocytes % (Manual) Monocytes % (Manual) Nucleated RBC % Seg Neutrophils # Seg Neutrophils # Man Lymphocytes # (Manual) Monocytes # (Manual) PT INR APTT Fibrinogen D-Dimer > 27986 H ABG pH POC ABG pCO2 POC ABG pO2 ABG pO2 ABG HCO3 ABG Base Excess ABG Hemoglobin ABG Oxyhemoglobin ABG Sodium ABG Potassium ABG Chloride ABG Glucose VBG pH Oxyhemoglobin Carboxyhemoglobin Sodium Potassium Chloride Carbon Dioxide BUN Creatinine Glucose POC Glucose Random Insulin C-Peptide Lactic Acid 3.90 H* Calcium Ionized Calcium Phosphorus Magnesium AST ALT Alkaline Phosphatase Lactate Dehydrogenase NT-Pro-B Natriuret Pep 2788 H Total Protein Albumin Arterial Blood Glucose Arterial Blood Ionized Calcium Urine WBC (Auto) Vancomycin Trough Phenytoin Crossmatch 10/04/20 10/04/20 10/04/20 14:00 14:00 18:00 WBC 15.7 H RBC 3.17 L Hgb 9.3 L 9.6 L Hct 27.2 L 28.0 L MCV MCH MCHC RDW 16.9 H Plt Count 41 L Lymph % (Auto) 8.6 L [place] % (Auto) Lymph # (Auto) [place] # (Auto) 0.9 H Baso # (Auto) Seg Neutrophils % 85.4 H Seg Neuts % (Manual) Lymphocytes % (Manual) Monocytes % (Manual) Nucleated RBC % Seg Neutrophils # 13.4 H Seg Neutrophils # Man Lymphocytes # (Manual) Monocytes # (Manual) PT INR APTT Fibrinogen D-Dimer ABG pH POC ABG pCO2 POC ABG pO2 ABG pO2 ABG HCO3 ABG Base Excess ABG Hemoglobin ABG Oxyhemoglobin ABG Sodium ABG Potassium ABG Chloride ABG Glucose VBG pH Oxyhemoglobin Carboxyhemoglobin Sodium 133 L Potassium Chloride 96.4 L Carbon Dioxide BUN 18 H Creatinine 1.7 H Glucose POC Glucose Random Insulin C-Peptide Lactic Acid Calcium 6.3 L Ionized Calcium Phosphorus Magnesium AST ALT Alkaline Phosphatase Lactate Dehydrogenase NT-Pro-B Natriuret Pep Total Protein Albumin Arterial Blood Glucose Arterial Blood Ionized Calcium Urine WBC (Auto) Vancomycin Trough Phenytoin Crossmatch 10/04/20 10/04/20 10/05/20 18:00 22:00 05:00 WBC 17.6 H RBC 3.34 L Hgb 9.9 L Hct 29.4 L MCV MCH MCHC RDW 17.1 H Plt Count 56 L Lymph % (Auto) 8.5 L [place] % (Auto) Lymph # (Auto) [place] # (Auto) 1.0 H Baso # (Auto) Seg Neutrophils % 85.1 H Seg Neuts % (Manual) Lymphocytes % (Manual) Monocytes % (Manual) Nucleated RBC % Seg Neutrophils # 15.0 H Seg Neutrophils # Man Lymphocytes # (Manual) Monocytes # (Manual) PT INR APTT Fibrinogen D-Dimer ABG pH POC ABG pCO2 POC ABG pO2 ABG pO2 ABG HCO3 ABG Base Excess ABG Hemoglobin ABG Oxyhemoglobin ABG Sodium ABG Potassium ABG Chloride ABG Glucose VBG pH Oxyhemoglobin Carboxyhemoglobin Sodium 136 L Potassium Chloride Carbon Dioxide BUN 18 H Creatinine 1.7 H Glucose POC Glucose Random Insulin C-Peptide Lactic Acid 2.30 H* Calcium 6.6 L Ionized Calcium Phosphorus Magnesium AST ALT Alkaline Phosphatase Lactate Dehydrogenase NT-Pro-B Natriuret Pep Total Protein Albumin Arterial Blood Glucose Arterial Blood Ionized Calcium Urine WBC (Auto) Vancomycin Trough Phenytoin Crossmatch 10/05/20 10/05/20 10/05/20 05:00 05:00 05:03 WBC RBC Hgb Hct MCV MCH MCHC RDW Plt Count Lymph % (Auto) [place] % (Auto) Lymph # (Auto) [place] # (Auto) Baso # (Auto) Seg Neutrophils % Seg Neuts % (Manual) Lymphocytes % (Manual) Monocytes % (Manual) Nucleated RBC % Seg Neutrophils # Seg Neutrophils # Man Lymphocytes # (Manual) Monocytes # (Manual) PT INR APTT Fibrinogen D-Dimer ABG pH 7.458 H POC ABG pCO2 POC ABG pO2 ABG pO2 74.3 L ABG HCO3 27.5 H ABG Base Excess 3.4 H ABG Hemoglobin 10.0 L ABG Oxyhemoglobin ABG Sodium ABG Potassium ABG Chloride ABG Glucose VBG pH Oxyhemoglobin 94.9 L Carboxyhemoglobin Sodium Potassium Chloride Carbon Dioxide BUN 19 H Creatinine 1.8 H Glucose POC Glucose Random Insulin C-Peptide Lactic Acid Calcium 6.8 L Ionized Calcium 3.9 L Phosphorus Magnesium AST 225 H ALT 85 H Alkaline Phosphatase Lactate Dehydrogenase NT-Pro-B Natriuret Pep Total Protein 4.5 L Albumin 2.7 L Arterial Blood Glucose Arterial Blood Ionized Calcium Urine WBC (Auto) Vancomycin Trough Phenytoin Crossmatch 10/05/20 10/05/20 10/05/20 10:10 15:00 19:40 WBC RBC Hgb Hct MCV MCH MCHC RDW Plt Count Lymph % (Auto) [place] % (Auto) Lymph # (Auto) [place] # (Auto) Baso # (Auto) Seg Neutrophils % Seg Neuts % (Manual) Lymphocytes % (Manual) Monocytes % (Manual) Nucleated RBC % Seg Neutrophils # Seg Neutrophils # Man Lymphocytes # (Manual) Monocytes # (Manual) PT INR APTT Fibrinogen D-Dimer ABG pH POC ABG pCO2 POC ABG pO2 ABG pO2 ABG HCO3 ABG Base Excess ABG Hemoglobin ABG Oxyhemoglobin ABG Sodium ABG Potassium ABG Chloride ABG Glucose VBG pH Oxyhemoglobin Carboxyhemoglobin Sodium Potassium 3.5 L Chloride Carbon Dioxide 31 H 32 H BUN 19 H 19 H Creatinine 1.8 H 1.8 H Glucose POC Glucose Random Insulin C-Peptide Lactic Acid Calcium 7.0 L 7.2 L Ionized Calcium Phosphorus Magnesium 2.90 H AST ALT Alkaline Phosphatase Lactate Dehydrogenase NT-Pro-B Natriuret Pep Total Protein Albumin Arterial Blood Glucose Arterial Blood Ionized Calcium Urine WBC (Auto) Vancomycin Trough Phenytoin Crossmatch 10/06/20 10/06/20 10/06/20 01:05 03:12 04:00 WBC 17.1 H RBC 3.47 L Hgb Hct MCV MCH MCHC RDW 17.4 H Plt Count 82 L Lymph % (Auto) 8.3 L [place] % (Auto) Lymph # (Auto) [place] # (Auto) 1.1 H Baso # (Auto) Seg Neutrophils % 83.8 H Seg Neuts % (Manual) Lymphocytes % (Manual) Monocytes % (Manual) Nucleated RBC % Seg Neutrophils # 14.3 H Seg Neutrophils # Man Lymphocytes # (Manual) Monocytes # (Manual) PT INR APTT Fibrinogen D-Dimer ABG pH 7.474 H POC ABG pCO2 POC ABG pO2 129.5 H ABG pO2 ABG HCO3 ABG Base Excess ABG Hemoglobin 11.4 L ABG Oxyhemoglobin ABG Sodium 131.8 L ABG Potassium ABG Chloride ABG Glucose 103 H VBG pH Oxyhemoglobin Carboxyhemoglobin 0.3 L Sodium Potassium Chloride Carbon Dioxide BUN Creatinine Glucose POC Glucose Random Insulin C-Peptide Lactic Acid Calcium Ionized Calcium Phosphorus Magnesium 3.70 H AST ALT Alkaline Phosphatase Lactate Dehydrogenase NT-Pro-B Natriuret Pep Total Protein Albumin Arterial Blood Glucose 103 H Arterial Blood Ionized Calcium 4.2 L Urine WBC (Auto) Vancomycin Trough Phenytoin Crossmatch 10/06/20 10/06/20 10/06/20 04:00 05:31 08:12 WBC RBC Hgb Hct MCV MCH MCHC RDW Plt Count Lymph % (Auto) [place] % (Auto) Lymph # (Auto) [place] # (Auto) Baso # (Auto) Seg Neutrophils % Seg Neuts % (Manual) Lymphocytes % (Manual) Monocytes % (Manual) Nucleated RBC % Seg Neutrophils # Seg Neutrophils # Man Lymphocytes # (Manual) Monocytes # (Manual) PT INR APTT Fibrinogen D-Dimer ABG pH POC ABG pCO2 POC ABG pO2 ABG pO2 ABG HCO3 ABG Base Excess ABG Hemoglobin ABG Oxyhemoglobin ABG Sodium ABG Potassium ABG Chloride ABG Glucose VBG pH Oxyhemoglobin Carboxyhemoglobin Sodium Potassium 3.5 L Chloride Carbon Dioxide BUN 19 H Creatinine 1.8 H Glucose 102 H POC Glucose 116 H Random Insulin C-Peptide Lactic Acid Calcium 7.2 L Ionized Calcium Phosphorus Magnesium 5.40 H AST 307 H ALT 137 H Alkaline Phosphatase Lactate Dehydrogenase NT-Pro-B Natriuret Pep Total Protein 4.5 L Albumin 2.6 L Arterial Blood Glucose Arterial Blood Ionized Calcium Urine WBC (Auto) Vancomycin Trough Phenytoin Crossmatch 10/06/20 10/06/20 10/06/20 11:00 11:50 20:13 WBC RBC Hgb Hct MCV MCH MCHC RDW Plt Count Lymph % (Auto) [place] % (Auto) Lymph # (Auto) [place] # (Auto) Baso # (Auto) Seg Neutrophils % Seg Neuts % (Manual) Lymphocytes % (Manual) Monocytes % (Manual) Nucleated RBC % Seg Neutrophils # Seg Neutrophils # Man Lymphocytes # (Manual) Monocytes # (Manual) PT INR APTT Fibrinogen D-Dimer ABG pH POC ABG pCO2 POC ABG pO2 ABG pO2 ABG HCO3 ABG Base Excess ABG Hemoglobin ABG Oxyhemoglobin ABG Sodium ABG Potassium ABG Chloride ABG Glucose VBG pH Oxyhemoglobin Carboxyhemoglobin Sodium Potassium Chloride Carbon Dioxide BUN Creatinine Glucose POC Glucose 106 H Random Insulin C-Peptide Lactic Acid Calcium Ionized Calcium Phosphorus Magnesium 6.50 H 6.20 H AST ALT Alkaline Phosphatase Lactate Dehydrogenase NT-Pro-B Natriuret Pep Total Protein Albumin Arterial Blood Glucose Arterial Blood Ionized Calcium Urine WBC (Auto) Vancomycin Trough Phenytoin Crossmatch 10/06/20 10/06/20 10/06/20 20:17 22:29 23:57 WBC RBC Hgb Hct MCV MCH MCHC RDW Plt Count Lymph % (Auto) [place] % (Auto) Lymph # (Auto) [place] # (Auto) Baso # (Auto) Seg Neutrophils % Seg Neuts % (Manual) Lymphocytes % (Manual) Monocytes % (Manual) Nucleated RBC % Seg Neutrophils # Seg Neutrophils # Man Lymphocytes # (Manual) Monocytes # (Manual) PT INR APTT Fibrinogen D-Dimer ABG pH POC ABG pCO2 POC ABG pO2 ABG pO2 ABG HCO3 ABG Base Excess ABG Hemoglobin ABG Oxyhemoglobin ABG Sodium ABG Potassium ABG Chloride ABG Glucose VBG pH Oxyhemoglobin Carboxyhemoglobin Sodium Potassium Chloride Carbon Dioxide BUN Creatinine Glucose POC Glucose 112 H 126 H 133 H Random Insulin C-Peptide Lactic Acid Calcium Ionized Calcium Phosphorus Magnesium AST ALT Alkaline Phosphatase Lactate Dehydrogenase NT-Pro-B Natriuret Pep Total Protein Albumin Arterial Blood Glucose Arterial Blood Ionized Calcium Urine WBC (Auto) Vancomycin Trough Phenytoin Crossmatch 10/07/20 10/07/20 10/07/20 00:35 02:22 03:16 WBC RBC Hgb Hct MCV MCH MCHC RDW Plt Count Lymph % (Auto) [place] % (Auto) Lymph # (Auto) [place] # (Auto) Baso # (Auto) Seg Neutrophils % Seg Neuts % (Manual) Lymphocytes % (Manual) Monocytes % (Manual) Nucleated RBC % Seg Neutrophils # Seg Neutrophils # Man Lymphocytes # (Manual) Monocytes # (Manual) PT INR APTT Fibrinogen D-Dimer ABG pH POC ABG pCO2 POC ABG pO2 ABG pO2 ABG HCO3 ABG Base Excess ABG Hemoglobin 11.6 L ABG Oxyhemoglobin ABG Sodium ABG Potassium ABG Chloride ABG Glucose 156 H VBG pH Oxyhemoglobin Carboxyhemoglobin 0.3 L Sodium Potassium Chloride Carbon Dioxide BUN Creatinine Glucose POC Glucose 124 H Random Insulin C-Peptide Lactic Acid Calcium Ionized Calcium Phosphorus Magnesium 5.90 H AST ALT Alkaline Phosphatase Lactate Dehydrogenase NT-Pro-B Natriuret Pep Total Protein Albumin Arterial Blood Glucose 156 H Arterial Blood Ionized Calcium 4.2 L Urine WBC (Auto) Vancomycin Trough Phenytoin Crossmatch 10/07/20 10/07/20 10/07/20 04:06 05:45 07:05 WBC 19.2 H RBC 3.57 L Hgb Hct MCV MCH MCHC 35 H RDW 17.1 H Plt Count 129 L Lymph % (Auto) [place] % (Auto) Lymph # (Auto) [place] # (Auto) Baso # (Auto) Seg Neutrophils % Seg Neuts % (Manual) 94.0 H Lymphocytes % (Manual) 6.0 L Monocytes % (Manual) Nucleated RBC % Seg Neutrophils # Seg Neutrophils # Man 18.0 H Lymphocytes # (Manual) Monocytes # (Manual) PT INR APTT Fibrinogen D-Dimer ABG pH POC ABG pCO2 POC ABG pO2 ABG pO2 ABG HCO3 ABG Base Excess ABG Hemoglobin ABG Oxyhemoglobin ABG Sodium ABG Potassium ABG Chloride ABG Glucose VBG pH Oxyhemoglobin Carboxyhemoglobin Sodium Potassium Chloride Carbon Dioxide BUN Creatinine Glucose POC Glucose 135 H 149 H Random Insulin C-Peptide Lactic Acid Calcium Ionized Calcium Phosphorus Magnesium AST ALT Alkaline Phosphatase Lactate Dehydrogenase NT-Pro-B Natriuret Pep Total Protein Albumin Arterial Blood Glucose Arterial Blood Ionized Calcium Urine WBC (Auto) Vancomycin Trough Phenytoin Crossmatch 10/07/20 10/07/20 10/07/20 07:05 07:05 12:21 WBC RBC Hgb Hct MCV MCH MCHC RDW Plt Count Lymph % (Auto) [place] % (Auto) Lymph # (Auto) [place] # (Auto) Baso # (Auto) Seg Neutrophils % Seg Neuts % (Manual) Lymphocytes % (Manual) Monocytes % (Manual) Nucleated RBC % Seg Neutrophils # Seg Neutrophils # Man Lymphocytes # (Manual) Monocytes # (Manual) PT INR APTT Fibrinogen D-Dimer ABG pH POC ABG pCO2 POC ABG pO2 ABG pO2 ABG HCO3 ABG Base Excess ABG Hemoglobin ABG Oxyhemoglobin ABG Sodium ABG Potassium ABG Chloride ABG Glucose VBG pH Oxyhemoglobin Carboxyhemoglobin Sodium Potassium Chloride Carbon Dioxide BUN 21 H Creatinine 1.7 H Glucose 171 H POC Glucose 124 H Random Insulin C-Peptide Lactic Acid Calcium 7.4 L Ionized Calcium Phosphorus Magnesium 6.10 H AST 245 H ALT 147 H Alkaline Phosphatase Lactate Dehydrogenase NT-Pro-B Natriuret Pep Total Protein 5.3 L Albumin 2.8 L Arterial Blood Glucose Arterial Blood Ionized Calcium Urine WBC (Auto) Vancomycin Trough Phenytoin Crossmatch 10/07/20 10/07/20 10/07/20 19:52 21:00 21:50 WBC RBC Hgb Hct MCV MCH MCHC RDW Plt Count Lymph % (Auto) [place] % (Auto) Lymph # (Auto) [place] # (Auto) Baso # (Auto) Seg Neutrophils % Seg Neuts % (Manual) Lymphocytes % (Manual) Monocytes % (Manual) Nucleated RBC % Seg Neutrophils # Seg Neutrophils # Man Lymphocytes # (Manual) Monocytes # (Manual) PT INR APTT Fibrinogen D-Dimer ABG pH POC ABG pCO2 POC ABG pO2 ABG pO2 ABG HCO3 ABG Base Excess ABG Hemoglobin ABG Oxyhemoglobin ABG Sodium ABG Potassium ABG Chloride ABG Glucose VBG pH Oxyhemoglobin Carboxyhemoglobin Sodium Potassium Chloride Carbon Dioxide BUN Creatinine Glucose POC Glucose 193 H 138 H Random Insulin C-Peptide Lactic Acid Calcium Ionized Calcium 4.4 L Phosphorus Magnesium AST ALT Alkaline Phosphatase Lactate Dehydrogenase NT-Pro-B Natriuret Pep Total Protein Albumin Arterial Blood Glucose Arterial Blood Ionized Calcium Urine WBC (Auto) Vancomycin Trough Phenytoin Crossmatch 10/07/20 10/08/20 10/08/20 23:41 04:20 05:30 WBC RBC Hgb Hct MCV MCH MCHC RDW Plt Count Lymph % (Auto) [place] % (Auto) Lymph # (Auto) [place] # (Auto) Baso # (Auto) Seg Neutrophils % Seg Neuts % (Manual) Lymphocytes % (Manual) Monocytes % (Manual) Nucleated RBC % Seg Neutrophils # Seg Neutrophils # Man Lymphocytes # (Manual) Monocytes # (Manual) PT INR APTT Fibrinogen D-Dimer ABG pH 7.467 H POC ABG pCO2 POC ABG pO2 189.8 H ABG pO2 ABG HCO3 ABG Base Excess ABG Hemoglobin 10.8 L ABG Oxyhemoglobin ABG Sodium ABG Potassium ABG Chloride ABG Glucose 133 H VBG pH Oxyhemoglobin Carboxyhemoglobin Sodium Potassium Chloride Carbon Dioxide BUN Creatinine Glucose POC Glucose 118 H 114 H Random Insulin C-Peptide Lactic Acid Calcium Ionized Calcium Phosphorus Magnesium AST ALT Alkaline Phosphatase Lactate Dehydrogenase NT-Pro-B Natriuret Pep Total Protein Albumin Arterial Blood Glucose 133 H Arterial Blood Ionized Calcium 4.2 L Urine WBC (Auto) Vancomycin Trough Phenytoin Crossmatch 10/08/20 10/08/20 10/08/20 05:43 06:42 06:42 WBC 23.6 H RBC 3.54 L Hgb Hct MCV MCH MCHC RDW 17.8 H Plt Count Lymph % (Auto) [place] % (Auto) Lymph # (Auto) [place] # (Auto) Baso # (Auto) Seg Neutrophils % Seg Neuts % (Manual) 93.0 H Lymphocytes % (Manual) 3.0 L Monocytes % (Manual) Nucleated RBC % 1.0 H Seg Neutrophils # Seg Neutrophils # Man 21.9 H Lymphocytes # (Manual) 0.7 L Monocytes # (Manual) 0.9 H PT INR APTT Fibrinogen D-Dimer ABG pH POC ABG pCO2 POC ABG pO2 ABG pO2 ABG HCO3 ABG Base Excess ABG Hemoglobin ABG Oxyhemoglobin ABG Sodium ABG Potassium ABG Chloride ABG Glucose VBG pH Oxyhemoglobin Carboxyhemoglobin Sodium Potassium Chloride Carbon Dioxide BUN 28 H Creatinine 1.6 H Glucose 141 H POC Glucose 126 H Random Insulin C-Peptide Lactic Acid Calcium 7.6 L Ionized Calcium Phosphorus Magnesium AST 162 H ALT 103 H Alkaline Phosphatase Lactate Dehydrogenase NT-Pro-B Natriuret Pep Total Protein 5.4 L Albumin 2.7 L Arterial Blood Glucose Arterial Blood Ionized Calcium Urine WBC (Auto) Vancomycin Trough Phenytoin Crossmatch 10/08/20 10/08/20 10/08/20 11:20 16:05 20:14 WBC RBC Hgb Hct MCV MCH MCHC RDW Plt Count Lymph % (Auto) [place] % (Auto) Lymph # (Auto) [place] # (Auto) Baso # (Auto) Seg Neutrophils % Seg Neuts % (Manual) Lymphocytes % (Manual) Monocytes % (Manual) Nucleated RBC % Seg Neutrophils # Seg Neutrophils # Man Lymphocytes # (Manual) Monocytes # (Manual) PT INR APTT Fibrinogen D-Dimer ABG pH POC ABG pCO2 POC ABG pO2 ABG pO2 ABG HCO3 ABG Base Excess ABG Hemoglobin ABG Oxyhemoglobin ABG Sodium ABG Potassium ABG Chloride ABG Glucose VBG pH Oxyhemoglobin Carboxyhemoglobin Sodium Potassium Chloride Carbon Dioxide BUN Creatinine Glucose POC Glucose 127 H 172 H 147 H Random Insulin C-Peptide Lactic Acid Calcium Ionized Calcium Phosphorus Magnesium AST ALT Alkaline Phosphatase Lactate Dehydrogenase NT-Pro-B Natriuret Pep Total Protein Albumin Arterial Blood Glucose Arterial Blood Ionized Calcium Urine WBC (Auto) Vancomycin Trough Phenytoin Crossmatch 10/08/20 10/08/20 10/09/20 21:27 23:24 02:10 WBC RBC Hgb Hct MCV MCH MCHC RDW Plt Count Lymph % (Auto) [place] % (Auto) Lymph # (Auto) [place] # (Auto) Baso # (Auto) Seg Neutrophils % Seg Neuts % (Manual) Lymphocytes % (Manual) Monocytes % (Manual) Nucleated RBC % Seg Neutrophils # Seg Neutrophils # Man Lymphocytes # (Manual) Monocytes # (Manual) PT INR APTT Fibrinogen D-Dimer ABG pH POC ABG pCO2 POC ABG pO2 ABG pO2 ABG HCO3 ABG Base Excess ABG Hemoglobin ABG Oxyhemoglobin ABG Sodium ABG Potassium ABG Chloride ABG Glucose VBG pH Oxyhemoglobin Carboxyhemoglobin Sodium Potassium Chloride Carbon Dioxide BUN Creatinine Glucose POC Glucose 140 H 135 H 111 H Random Insulin C-Peptide Lactic Acid Calcium Ionized Calcium Phosphorus Magnesium AST ALT Alkaline Phosphatase Lactate Dehydrogenase NT-Pro-B Natriuret Pep Total Protein Albumin Arterial Blood Glucose Arterial Blood Ionized Calcium Urine WBC (Auto) Vancomycin Trough Phenytoin Crossmatch 10/09/20 10/09/20 10/09/20 03:44 04:39 05:46 WBC 19.7 H RBC 3.51 L Hgb Hct MCV MCH MCHC RDW 17.7 H Plt Count Lymph % (Auto) [place] % (Auto) Lymph # (Auto) [place] # (Auto) Baso # (Auto) Seg Neutrophils % Seg Neuts % (Manual) 86.0 H Lymphocytes % (Manual) 4.0 L Monocytes % (Manual) 9.0 H Nucleated RBC % Seg Neutrophils # Seg Neutrophils # Man 16.9 H Lymphocytes # (Manual) 0.8 L Monocytes # (Manual) 1.8 H PT INR APTT Fibrinogen D-Dimer ABG pH 7.513 H POC ABG pCO2 POC ABG pO2 33.6 L ABG pO2 ABG HCO3 ABG Base Excess ABG Hemoglobin 11.1 L ABG Oxyhemoglobin 70.2 L ABG Sodium ABG Potassium 3.2 L ABG Chloride 108.0 H ABG Glucose 108 H VBG pH Oxyhemoglobin Carboxyhemoglobin Sodium Potassium Chloride Carbon Dioxide BUN Creatinine Glucose POC Glucose 109 H Random Insulin C-Peptide Lactic Acid Calcium Ionized Calcium Phosphorus Magnesium AST ALT Alkaline Phosphatase Lactate Dehydrogenase NT-Pro-B Natriuret Pep Total Protein Albumin Arterial Blood Glucose 108 H Arterial Blood Ionized Calcium 4.3 L Urine WBC (Auto) Vancomycin Trough Phenytoin Crossmatch 10/09/20 10/10/20 10/10/20 05:46 04:00 04:00 WBC 18.4 H RBC Hgb Hct MCV MCH MCHC RDW 17.5 H Plt Count Lymph % (Auto) 9.8 L [place] % (Auto) 8.8 H Lymph # (Auto) [place] # (Auto) 1.6 H Baso # (Auto) Seg Neutrophils % 80.0 H Seg Neuts % (Manual) Lymphocytes % (Manual) Monocytes % (Manual) Nucleated RBC % Seg Neutrophils # 14.7 H Seg Neutrophils # Man Lymphocytes # (Manual) Monocytes # (Manual) PT INR APTT Fibrinogen D-Dimer ABG pH POC ABG pCO2 POC ABG pO2 ABG pO2 ABG HCO3 ABG Base Excess ABG Hemoglobin ABG Oxyhemoglobin ABG Sodium ABG Potassium ABG Chloride ABG Glucose VBG pH Oxyhemoglobin Carboxyhemoglobin Sodium 146 H Potassium 3.2 L 2.9 L* Chloride 108.9 H 112.6 H Carbon Dioxide BUN 34 H 28 H Creatinine 1.4 H 1.3 H Glucose 109 H 101 H POC Glucose Random Insulin C-Peptide Lactic Acid Calcium 7.6 L 7.8 L Ionized Calcium Phosphorus Magnesium AST 137 H 122 H ALT 99 H 81 H Alkaline Phosphatase Lactate Dehydrogenase NT-Pro-B Natriuret Pep Total Protein 5.1 L 5.2 L Albumin 2.6 L 2.7 L Arterial Blood Glucose Arterial Blood Ionized Calcium Urine WBC (Auto) Vancomycin Trough Phenytoin Crossmatch 10/10/20 10/10/20 10/11/20 04:42 09:50 00:44 WBC RBC Hgb Hct MCV MCH MCHC RDW Plt Count Lymph % (Auto) [place] % (Auto) Lymph # (Auto) [place] # (Auto) Baso # (Auto) Seg Neutrophils % Seg Neuts % (Manual) Lymphocytes % (Manual) Monocytes % (Manual) Nucleated RBC % Seg Neutrophils # Seg Neutrophils # Man Lymphocytes # (Manual) Monocytes # (Manual) PT INR APTT Fibrinogen D-Dimer ABG pH 7.534 H POC ABG pCO2 POC ABG pO2 ABG pO2 95.2 H ABG HCO3 ABG Base Excess ABG Hemoglobin 11.3 L ABG Oxyhemoglobin ABG Sodium ABG Potassium ABG Chloride ABG Glucose VBG pH Oxyhemoglobin Carboxyhemoglobin Sodium Potassium Chloride Carbon Dioxide BUN Creatinine Glucose POC Glucose 109 H 106 H Random Insulin C-Peptide Lactic Acid Calcium Ionized Calcium Phosphorus Magnesium AST ALT Alkaline Phosphatase Lactate Dehydrogenase NT-Pro-B Natriuret Pep Total Protein Albumin Arterial Blood Glucose Arterial Blood Ionized Calcium Urine WBC (Auto) Vancomycin Trough Phenytoin Crossmatch 10/11/20 10/11/20 10/11/20 04:00 04:00 06:08 WBC 27.0 H RBC Hgb Hct MCV MCH MCHC RDW 17.7 H Plt Count Lymph % (Auto) 6.3 L [place] % (Auto) Lymph # (Auto) [place] # (Auto) 1.5 H Baso # (Auto) Seg Neutrophils % 87.1 H Seg Neuts % (Manual) Lymphocytes % (Manual) Monocytes % (Manual) Nucleated RBC % Seg Neutrophils # 23.5 H Seg Neutrophils # Man Lymphocytes # (Manual) Monocytes # (Manual) PT INR APTT Fibrinogen D-Dimer ABG pH POC ABG pCO2 POC ABG pO2 ABG pO2 ABG HCO3 ABG Base Excess ABG Hemoglobin ABG Oxyhemoglobin ABG Sodium ABG Potassium ABG Chloride ABG Glucose VBG pH Oxyhemoglobin Carboxyhemoglobin Sodium Potassium 3.2 L Chloride 110.4 H Carbon Dioxide 19 L BUN 22 H Creatinine Glucose 116 H POC Glucose 107 H Random Insulin C-Peptide Lactic Acid Calcium 7.7 L Ionized Calcium Phosphorus Magnesium 1.60 L AST ALT Alkaline Phosphatase Lactate Dehydrogenase NT-Pro-B Natriuret Pep Total Protein Albumin Arterial Blood Glucose Arterial Blood Ionized Calcium Urine WBC (Auto) Vancomycin Trough Phenytoin Crossmatch 10/11/20 10/11/20 10/12/20 11:41 13:26 03:52 WBC RBC Hgb Hct MCV MCH MCHC RDW Plt Count Lymph % (Auto) [place] % (Auto) Lymph # (Auto) [place] # (Auto) Baso # (Auto) Seg Neutrophils % Seg Neuts % (Manual) Lymphocytes % (Manual) Monocytes % (Manual) Nucleated RBC % Seg Neutrophils # Seg Neutrophils # Man Lymphocytes # (Manual) Monocytes # (Manual) PT INR APTT Fibrinogen D-Dimer ABG pH POC ABG pCO2 POC ABG pO2 ABG pO2 ABG HCO3 ABG Base Excess ABG Hemoglobin ABG Oxyhemoglobin ABG Sodium ABG Potassium ABG Chloride ABG Glucose VBG pH Oxyhemoglobin Carboxyhemoglobin Sodium Potassium Chloride Carbon Dioxide BUN Creatinine Glucose POC Glucose 116 H 114 H Random Insulin C-Peptide Lactic Acid Calcium Ionized Calcium Phosphorus Magnesium AST ALT Alkaline Phosphatase Lactate Dehydrogenase NT-Pro-B Natriuret Pep Total Protein Albumin Arterial Blood Glucose Arterial Blood Ionized Calcium Urine WBC (Auto) 24.0 H Vancomycin Trough Phenytoin Crossmatch 10/12/20 10/12/20 10/12/20 04:24 14:47 21:33 WBC RBC Hgb Hct MCV MCH MCHC RDW Plt Count Lymph % (Auto) [place] % (Auto) Lymph # (Auto) [place] # (Auto) Baso # (Auto) Seg Neutrophils % Seg Neuts % (Manual) Lymphocytes % (Manual) Monocytes % (Manual) Nucleated RBC % Seg Neutrophils # Seg Neutrophils # Man Lymphocytes # (Manual) Monocytes # (Manual) PT INR APTT Fibrinogen D-Dimer ABG pH POC ABG pCO2 POC ABG pO2 ABG pO2 ABG HCO3 ABG Base Excess ABG Hemoglobin ABG Oxyhemoglobin ABG Sodium ABG Potassium ABG Chloride ABG Glucose VBG pH Oxyhemoglobin Carboxyhemoglobin Sodium Potassium Chloride 109.9 H Carbon Dioxide 13 L BUN 18 H Creatinine Glucose 119 H POC Glucose 107 H Random Insulin C-Peptide Lactic Acid Calcium 7.6 L Ionized Calcium Phosphorus Magnesium 1.60 L AST ALT Alkaline Phosphatase Lactate Dehydrogenase NT-Pro-B Natriuret Pep Total Protein Albumin Arterial Blood Glucose Arterial Blood Ionized Calcium Urine WBC (Auto) Vancomycin Trough Phenytoin Crossmatch 10/12/20 10/12/20 10/13/20 Unknown Unknown 07:00 WBC 24.3 H RBC 3.38 L Hgb 9.8 L Hct MCV MCH MCHC RDW 18.7 H Plt Count Lymph % (Auto) [place] % (Auto) Lymph # (Auto) [place] # (Auto) Baso # (Auto) Seg Neutrophils % Seg Neuts % (Manual) 93.5 H Lymphocytes % (Manual) 4.5 L Monocytes % (Manual) Nucleated RBC % Seg Neutrophils # Seg Neutrophils # Man 22.7 H Lymphocytes # (Manual) 1.1 L Monocytes # (Manual) PT INR APTT Fibrinogen D-Dimer ABG pH POC ABG pCO2 POC ABG pO2 ABG pO2 ABG HCO3 ABG Base Excess ABG Hemoglobin ABG Oxyhemoglobin ABG Sodium ABG Potassium ABG Chloride ABG Glucose VBG pH Oxyhemoglobin Carboxyhemoglobin Sodium 135 L D Potassium 3.1 L Chloride Carbon Dioxide 17 L BUN Creatinine Glucose 510 H* POC Glucose Random Insulin C-Peptide Lactic Acid Calcium 7.2 L Ionized Calcium Phosphorus Magnesium AST ALT Alkaline Phosphatase Lactate Dehydrogenase NT-Pro-B Natriuret Pep Total Protein Albumin Arterial Blood Glucose Arterial Blood Ionized Calcium Urine WBC (Auto) Vancomycin Trough Phenytoin 5.7 L Crossmatch 10/13/20 10/13/20 10/13/20 07:00 07:00 07:18 WBC 23.6 H RBC 3.26 L Hgb 9.4 L Hct 28.7 L MCV MCH MCHC RDW 18.3 H Plt Count Lymph % (Auto) [place] % (Auto) Lymph # (Auto) [place] # (Auto) Baso # (Auto) Seg Neutrophils % Seg Neuts % (Manual) Lymphocytes % (Manual) Monocytes % (Manual) Nucleated RBC % Seg Neutrophils # Seg Neutrophils # Man Lymphocytes # (Manual) Monocytes # (Manual) PT INR APTT Fibrinogen D-Dimer ABG pH 7.473 H POC ABG pCO2 20.7 L POC ABG pO2 137.9 H ABG pO2 ABG HCO3 ABG Base Excess ABG Hemoglobin 11.2 L ABG Oxyhemoglobin 98.3 H ABG Sodium 135.9 L ABG Potassium ABG Chloride 111.0 H ABG Glucose 109 H VBG pH Oxyhemoglobin Carboxyhemoglobin 0.3 L Sodium 135 L Potassium 3.5 L Chloride 109.1 H Carbon Dioxide 18 L BUN Creatinine Glucose POC Glucose Random Insulin C-Peptide Lactic Acid Calcium 7.3 L Ionized Calcium Phosphorus Magnesium 1.60 L AST ALT Alkaline Phosphatase Lactate Dehydrogenase NT-Pro-B Natriuret Pep Total Protein Albumin Arterial Blood Glucose 109 H Arterial Blood Ionized Calcium Urine WBC (Auto) Vancomycin Trough Phenytoin Crossmatch 10/14/20 10/14/20 10/15/20 04:00 04:00 05:50 WBC 28.6 H 23.2 H RBC 3.61 L 3.43 L Hgb 9.9 L Hct 30.0 L MCV MCH MCHC RDW 18.3 H 18.2 H Plt Count Lymph % (Auto) [place] % (Auto) Lymph # (Auto) [place] # (Auto) Baso # (Auto) Seg Neutrophils % Seg Neuts % (Manual) 88.0 H 90.0 H Lymphocytes % (Manual) 5.0 L 4.0 L Monocytes % (Manual) Nucleated RBC % Seg Neutrophils # Seg Neutrophils # Man 25.2 H 20.9 H Lymphocytes # (Manual) 0.9 L Monocytes # (Manual) 1.4 H 0.9 H PT INR APTT Fibrinogen D-Dimer ABG pH POC ABG pCO2 POC ABG pO2 ABG pO2 ABG HCO3 ABG Base Excess ABG Hemoglobin ABG Oxyhemoglobin ABG Sodium ABG Potassium ABG Chloride ABG Glucose VBG pH Oxyhemoglobin Carboxyhemoglobin Sodium Potassium Chloride 109.9 H Carbon Dioxide 17 L BUN Creatinine Glucose POC Glucose Random Insulin C-Peptide Lactic Acid Calcium Ionized Calcium Phosphorus Magnesium AST ALT Alkaline Phosphatase Lactate Dehydrogenase NT-Pro-B Natriuret Pep Total Protein Albumin Arterial Blood Glucose Arterial Blood Ionized Calcium Urine WBC (Auto) Vancomycin Trough Phenytoin Crossmatch 10/15/20 10/16/20 10/17/20 05:50 11:57 04:57 WBC 15.2 H RBC 3.43 L Hgb Hct MCV MCH MCHC RDW 18.1 H Plt Count Lymph % (Auto) [place] % (Auto) Lymph # (Auto) [place] # (Auto) Baso # (Auto) Seg Neutrophils % Seg Neuts % (Manual) Lymphocytes % (Manual) Monocytes % (Manual) Nucleated RBC % Seg Neutrophils # Seg Neutrophils # Man Lymphocytes # (Manual) Monocytes # (Manual) PT INR APTT Fibrinogen D-Dimer ABG pH POC ABG pCO2 POC ABG pO2 ABG pO2 ABG HCO3 ABG Base Excess ABG Hemoglobin ABG Oxyhemoglobin ABG Sodium ABG Potassium ABG Chloride ABG Glucose VBG pH Oxyhemoglobin Carboxyhemoglobin Sodium Potassium Chloride 110.3 H Carbon Dioxide 18 L BUN Creatinine Glucose 105 H POC Glucose 111 H Random Insulin C-Peptide Lactic Acid Calcium 8.3 L Ionized Calcium Phosphorus Magnesium AST ALT Alkaline Phosphatase Lactate Dehydrogenase NT-Pro-B Natriuret Pep Total Protein Albumin Arterial Blood Glucose Arterial Blood Ionized Calcium Urine WBC (Auto) Vancomycin Trough Phenytoin Crossmatch 10/17/20 10/17/20 10/18/20 05:25 21:16 01:31 WBC RBC Hgb Hct MCV MCH MCHC RDW Plt Count Lymph % (Auto) [place] % (Auto) Lymph # (Auto) [place] # (Auto) Baso # (Auto) Seg Neutrophils % Seg Neuts % (Manual) Lymphocytes % (Manual) Monocytes % (Manual) Nucleated RBC % Seg Neutrophils # Seg Neutrophils # Man Lymphocytes # (Manual) Monocytes # (Manual) PT INR APTT Fibrinogen D-Dimer ABG pH POC ABG pCO2 POC ABG pO2 ABG pO2 ABG HCO3 ABG Base Excess ABG Hemoglobin ABG Oxyhemoglobin ABG Sodium ABG Potassium ABG Chloride ABG Glucose VBG pH Oxyhemoglobin Carboxyhemoglobin Sodium Potassium Chloride Carbon Dioxide BUN Creatinine Glucose POC Glucose 107 H 106 H 119 H Random Insulin C-Peptide Lactic Acid Calcium Ionized Calcium Phosphorus Magnesium AST ALT Alkaline Phosphatase Lactate Dehydrogenase NT-Pro-B Natriuret Pep Total Protein Albumin Arterial Blood Glucose Arterial Blood Ionized Calcium Urine WBC (Auto) Vancomycin Trough Phenytoin Crossmatch 10/18/20 10/18/20 10/19/20 05:45 11:23 01:14 WBC RBC Hgb Hct MCV MCH MCHC RDW Plt Count Lymph % (Auto) [place] % (Auto) Lymph # (Auto) [place] # (Auto) Baso # (Auto) Seg Neutrophils % Seg Neuts % (Manual) Lymphocytes % (Manual) Monocytes % (Manual) Nucleated RBC % Seg Neutrophils # Seg Neutrophils # Man Lymphocytes # (Manual) Monocytes # (Manual) PT INR APTT Fibrinogen D-Dimer ABG pH POC ABG pCO2 POC ABG pO2 ABG pO2 ABG HCO3 ABG Base Excess ABG Hemoglobin ABG Oxyhemoglobin ABG Sodium ABG Potassium ABG Chloride ABG Glucose VBG pH Oxyhemoglobin Carboxyhemoglobin Sodium Potassium Chloride Carbon Dioxide BUN Creatinine Glucose POC Glucose 106 H 115 H 108 H Random Insulin C-Peptide Lactic Acid Calcium Ionized Calcium Phosphorus Magnesium AST ALT Alkaline Phosphatase Lactate Dehydrogenase NT-Pro-B Natriuret Pep Total Protein Albumin Arterial Blood Glucose Arterial Blood Ionized Calcium Urine WBC (Auto) Vancomycin Trough Phenytoin Crossmatch 10/19/20 10/20/20 10/20/20 09:57 05:40 07:59 WBC RBC Hgb Hct MCV MCH MCHC RDW Plt Count Lymph % (Auto) [place] % (Auto) Lymph # (Auto) [place] # (Auto) Baso # (Auto) Seg Neutrophils % Seg Neuts % (Manual) Lymphocytes % (Manual) Monocytes % (Manual) Nucleated RBC % Seg Neutrophils # Seg Neutrophils # Man Lymphocytes # (Manual) Monocytes # (Manual) PT INR APTT Fibrinogen D-Dimer ABG pH POC ABG pCO2 POC ABG pO2 ABG pO2 ABG HCO3 ABG Base Excess ABG Hemoglobin ABG Oxyhemoglobin ABG Sodium ABG Potassium ABG Chloride ABG Glucose VBG pH Oxyhemoglobin Carboxyhemoglobin Sodium Potassium Chloride Carbon Dioxide BUN Creatinine Glucose 106 H POC Glucose 122 H 109 H Random Insulin C-Peptide Lactic Acid Calcium Ionized Calcium Phosphorus Magnesium AST ALT Alkaline Phosphatase Lactate Dehydrogenase NT-Pro-B Natriuret Pep Total Protein Albumin Arterial Blood Glucose Arterial Blood Ionized Calcium Urine WBC (Auto) Vancomycin Trough Phenytoin Crossmatch 10/20/20 10/20/20 10/21/20 16:52 16:52 13:54 WBC 18.8 H 17.0 H RBC Hgb Hct MCV MCH MCHC RDW 17.7 H 17.8 H Plt Count 547 H 544 H Lymph % (Auto) 11.2 L [place] % (Auto) 8.1 H Lymph # (Auto) [place] # (Auto) 1.5 H Baso # (Auto) 0.2 H Seg Neutrophils % 78.8 H Seg Neuts % (Manual) Lymphocytes % (Manual) Monocytes % (Manual) Nucleated RBC % Seg Neutrophils # 14.8 H Seg Neutrophils # Man Lymphocytes # (Manual) Monocytes # (Manual) PT INR APTT Fibrinogen D-Dimer ABG pH POC ABG pCO2 POC ABG pO2 ABG pO2 ABG HCO3 ABG Base Excess ABG Hemoglobin ABG Oxyhemoglobin ABG Sodium ABG Potassium ABG Chloride ABG Glucose VBG pH Oxyhemoglobin Carboxyhemoglobin Sodium Potassium Chloride Carbon Dioxide BUN Creatinine Glucose POC Glucose Random Insulin C-Peptide Lactic Acid Calcium Ionized Calcium Phosphorus Magnesium AST ALT Alkaline Phosphatase Lactate Dehydrogenase NT-Pro-B Natriuret Pep Total Protein Albumin Arterial Blood Glucose Arterial Blood Ionized Calcium Urine WBC (Auto) Vancomycin Trough 34.5 H Phenytoin Crossmatch 10/21/20 10/22/20 10/23/20 13:54 07:26 05:34 WBC 18.7 H 13.0 H RBC 3.64 L 3.50 L Hgb Hct 30.0 L MCV MCH MCHC 35 H RDW 17.7 H 17.6 H Plt Count 502 H 503 H Lymph % (Auto) [place] % (Auto) Lymph # (Auto) [place] # (Auto) Baso # (Auto) Seg Neutrophils % Seg Neuts % (Manual) Lymphocytes % (Manual) Monocytes % (Manual) Nucleated RBC % Seg Neutrophils # Seg Neutrophils # Man Lymphocytes # (Manual) Monocytes # (Manual) PT INR APTT Fibrinogen D-Dimer ABG pH POC ABG pCO2 POC ABG pO2 ABG pO2 ABG HCO3 ABG Base Excess ABG Hemoglobin ABG Oxyhemoglobin ABG Sodium ABG Potassium ABG Chloride ABG Glucose VBG pH Oxyhemoglobin Carboxyhemoglobin Sodium 136 L Potassium Chloride Carbon Dioxide BUN Creatinine Glucose 120 H POC Glucose Random Insulin C-Peptide Lactic Acid Calcium Ionized Calcium Phosphorus Magnesium AST ALT Alkaline Phosphatase Lactate Dehydrogenase NT-Pro-B Natriuret Pep Total Protein Albumin Arterial Blood Glucose Arterial Blood Ionized Calcium Urine WBC (Auto) Vancomycin Trough Phenytoin Crossmatch 10/23/20 10/26/20 10/27/20 05:34 10:30 07:53 WBC 13.6 H RBC 3.38 L Hgb 10.0 L Hct 28.8 L MCV MCH MCHC 35 H RDW 17.6 H Plt Count Lymph % (Auto) [place] % (Auto) Lymph # (Auto) [place] # (Auto) Baso # (Auto) Seg Neutrophils % Seg Neuts % (Manual) Lymphocytes % (Manual) Monocytes % (Manual) Nucleated RBC % Seg Neutrophils # Seg Neutrophils # Man Lymphocytes # (Manual) Monocytes # (Manual) PT INR APTT Fibrinogen D-Dimer ABG pH 7.459 H POC ABG pCO2 POC ABG pO2 ABG pO2 112.2 H ABG HCO3 ABG Base Excess ABG Hemoglobin ABG Oxyhemoglobin ABG Sodium ABG Potassium ABG Chloride ABG Glucose VBG pH Oxyhemoglobin Carboxyhemoglobin Sodium 135 L Potassium Chloride Carbon Dioxide BUN Creatinine Glucose 105 H POC Glucose Random Insulin C-Peptide Lactic Acid Calcium Ionized Calcium Phosphorus Magnesium AST ALT Alkaline Phosphatase Lactate Dehydrogenase NT-Pro-B Natriuret Pep Total Protein Albumin Arterial Blood Glucose Arterial Blood Ionized Calcium Urine WBC (Auto) Vancomycin Trough Phenytoin Crossmatch 10/27/20 10/27/20 10/28/20 07:53 11:31 05:19 WBC RBC Hgb Hct MCV MCH MCHC RDW Plt Count Lymph % (Auto) [place] % (Auto) Lymph # (Auto) [place] # (Auto) Baso # (Auto) Seg Neutrophils % Seg Neuts % (Manual) Lymphocytes % (Manual) Monocytes % (Manual) Nucleated RBC % Seg Neutrophils # Seg Neutrophils # Man Lymphocytes # (Manual) Monocytes # (Manual) PT INR APTT Fibrinogen D-Dimer ABG pH POC ABG pCO2 POC ABG pO2 ABG pO2 ABG HCO3 ABG Base Excess ABG Hemoglobin ABG Oxyhemoglobin ABG Sodium ABG Potassium ABG Chloride ABG Glucose VBG pH Oxyhemoglobin Carboxyhemoglobin Sodium Potassium Chloride Carbon Dioxide BUN 20 H Creatinine Glucose 112 H POC Glucose 113 H 112 H Random Insulin C-Peptide Lactic Acid Calcium Ionized Calcium Phosphorus Magnesium AST 83 H ALT Alkaline Phosphatase Lactate Dehydrogenase NT-Pro-B Natriuret Pep Total Protein Albumin 3.8 L Arterial Blood Glucose Arterial Blood Ionized Calcium Urine WBC (Auto) Vancomycin Trough Phenytoin Crossmatch 10/29/20 10/29/20 10/29/20 07:56 07:56 11:37 WBC 13.6 H RBC Hgb Hct MCV MCH MCHC RDW 17.0 H Plt Count Lymph % (Auto) [place] % (Auto) Lymph # (Auto) [place] # (Auto) Baso # (Auto) Seg Neutrophils % Seg Neuts % (Manual) 80.0 H Lymphocytes % (Manual) Monocytes % (Manual) Nucleated RBC % Seg Neutrophils # Seg Neutrophils # Man 10.9 H Lymphocytes # (Manual) Monocytes # (Manual) PT INR APTT Fibrinogen D-Dimer ABG pH POC ABG pCO2 POC ABG pO2 ABG pO2 ABG HCO3 ABG Base Excess ABG Hemoglobin ABG Oxyhemoglobin ABG Sodium ABG Potassium ABG Chloride ABG Glucose VBG pH Oxyhemoglobin Carboxyhemoglobin Sodium Potassium Chloride Carbon Dioxide BUN Creatinine Glucose POC Glucose 108 H Random Insulin C-Peptide Lactic Acid Calcium Ionized Calcium Phosphorus 4.70 H Magnesium AST ALT Alkaline Phosphatase Lactate Dehydrogenase NT-Pro-B Natriuret Pep Total Protein Albumin Arterial Blood Glucose Arterial Blood Ionized Calcium Urine WBC (Auto) Vancomycin Trough Phenytoin Crossmatch 10/29/20 10/30/20 10/30/20 13:32 12:11 17:19 WBC RBC Hgb Hct MCV MCH MCHC RDW Plt Count Lymph % (Auto) [place] % (Auto) Lymph # (Auto) [place] # (Auto) Baso # (Auto) Seg Neutrophils % Seg Neuts % (Manual) Lymphocytes % (Manual) Monocytes % (Manual) Nucleated RBC % Seg Neutrophils # Seg Neutrophils # Man Lymphocytes # (Manual) Monocytes # (Manual) PT INR APTT Fibrinogen D-Dimer ABG pH POC ABG pCO2 POC ABG pO2 ABG pO2 ABG HCO3 ABG Base Excess ABG Hemoglobin ABG Oxyhemoglobin ABG Sodium ABG Potassium ABG Chloride ABG Glucose VBG pH Oxyhemoglobin Carboxyhemoglobin Sodium Potassium Chloride Carbon Dioxide BUN Creatinine Glucose POC Glucose 108 H 106 H 107 H Random Insulin C-Peptide Lactic Acid Calcium Ionized Calcium Phosphorus Magnesium AST ALT Alkaline Phosphatase Lactate Dehydrogenase NT-Pro-B Natriuret Pep Total Protein Albumin Arterial Blood Glucose Arterial Blood Ionized Calcium Urine WBC (Auto) Vancomycin Trough Phenytoin Crossmatch 10/31/20 10/31/20 11/01/20 03:20 05:43 04:55 WBC RBC Hgb Hct MCV MCH MCHC RDW Plt Count Lymph % (Auto) [place] % (Auto) Lymph # (Auto) [place] # (Auto) Baso # (Auto) Seg Neutrophils % Seg Neuts % (Manual) Lymphocytes % (Manual) Monocytes % (Manual) Nucleated RBC % Seg Neutrophils # Seg Neutrophils # Man Lymphocytes # (Manual) Monocytes # (Manual) PT INR APTT Fibrinogen D-Dimer ABG pH POC ABG pCO2 POC ABG pO2 ABG pO2 ABG HCO3 ABG Base Excess ABG Hemoglobin ABG Oxyhemoglobin ABG Sodium ABG Potassium ABG Chloride ABG Glucose VBG pH Oxyhemoglobin Carboxyhemoglobin Sodium Potassium Chloride Carbon Dioxide BUN Creatinine Glucose POC Glucose 108 H 115 H 108 H Random Insulin C-Peptide Lactic Acid Calcium Ionized Calcium Phosphorus Magnesium AST ALT Alkaline Phosphatase Lactate Dehydrogenase NT-Pro-B Natriuret Pep Total Protein Albumin Arterial Blood Glucose Arterial Blood Ionized Calcium Urine WBC (Auto) Vancomycin Trough Phenytoin Crossmatch 11/01/20 11/01/20 11/01/20 05:01 16:47 21:36 WBC RBC Hgb Hct MCV MCH MCHC RDW Plt Count Lymph % (Auto) [place] % (Auto) Lymph # (Auto) [place] # (Auto) Baso # (Auto) Seg Neutrophils % Seg Neuts % (Manual) Lymphocytes % (Manual) Monocytes % (Manual) Nucleated RBC % Seg Neutrophils # Seg Neutrophils # Man Lymphocytes # (Manual) Monocytes # (Manual) PT INR APTT Fibrinogen D-Dimer ABG pH POC ABG pCO2 POC ABG pO2 ABG pO2 ABG HCO3 ABG Base Excess ABG Hemoglobin ABG Oxyhemoglobin ABG Sodium ABG Potassium ABG Chloride ABG Glucose VBG pH Oxyhemoglobin Carboxyhemoglobin Sodium 135 L Potassium Chloride Carbon Dioxide BUN Creatinine Glucose POC Glucose 116 H 112 H Random Insulin C-Peptide Lactic Acid Calcium Ionized Calcium Phosphorus Magnesium AST 93 H ALT Alkaline Phosphatase 132 H Lactate Dehydrogenase NT-Pro-B Natriuret Pep Total Protein Albumin 3.6 L Arterial Blood Glucose Arterial Blood Ionized Calcium Urine WBC (Auto) Vancomycin Trough Phenytoin Crossmatch 11/02/20 11/02/20 11/02/20 17:45 19:19 19:19 WBC RBC Hgb Hct MCV MCH MCHC RDW Plt Count Lymph % (Auto) [place] % (Auto) Lymph # (Auto) [place] # (Auto) Baso # (Auto) Seg Neutrophils % Seg Neuts % (Manual) Lymphocytes % (Manual) Monocytes % (Manual) Nucleated RBC % Seg Neutrophils # Seg Neutrophils # Man Lymphocytes # (Manual) Monocytes # (Manual) PT INR APTT Fibrinogen D-Dimer ABG pH POC ABG pCO2 POC ABG pO2 ABG pO2 ABG HCO3 ABG Base Excess ABG Hemoglobin ABG Oxyhemoglobin ABG Sodium ABG Potassium ABG Chloride ABG Glucose VBG pH Oxyhemoglobin Carboxyhemoglobin Sodium Potassium Chloride Carbon Dioxide BUN Creatinine Glucose POC Glucose 107 H Random Insulin 43.2 H C-Peptide 6.23 H Lactic Acid Calcium Ionized Calcium Phosphorus Magnesium AST ALT Alkaline Phosphatase Lactate Dehydrogenase NT-Pro-B Natriuret Pep Total Protein Albumin Arterial Blood Glucose Arterial Blood Ionized Calcium Urine WBC (Auto) Vancomycin Trough Phenytoin Crossmatch 11/03/20 11/04/20 11/04/20 21:49 05:00 05:00 WBC 13.8 H RBC Hgb Hct MCV MCH MCHC RDW 16.6 H Plt Count Lymph % (Auto) 11.8 L [place] % (Auto) 11.0 H Lymph # (Auto) [place] # (Auto) 1.5 H Baso # (Auto) Seg Neutrophils % 75.1 H Seg Neuts % (Manual) Lymphocytes % (Manual) Monocytes % (Manual) Nucleated RBC % Seg Neutrophils # 10.4 H Seg Neutrophils # Man Lymphocytes # (Manual) Monocytes # (Manual) PT INR APTT Fibrinogen D-Dimer ABG pH POC ABG pCO2 POC ABG pO2 ABG pO2 ABG HCO3 ABG Base Excess ABG Hemoglobin ABG Oxyhemoglobin ABG Sodium ABG Potassium ABG Chloride ABG Glucose VBG pH Oxyhemoglobin Carboxyhemoglobin Sodium Potassium Chloride Carbon Dioxide BUN Creatinine Glucose 112 H POC Glucose 109 H Random Insulin C-Peptide Lactic Acid Calcium Ionized Calcium Phosphorus Magnesium AST 90 H ALT Alkaline Phosphatase Lactate Dehydrogenase NT-Pro-B Natriuret Pep Total Protein Albumin 3.8 L Arterial Blood Glucose Arterial Blood Ionized Calcium Urine WBC (Auto) Vancomycin Trough Phenytoin Crossmatch 11/04/20 11/04/20 11/05/20 06:03 23:47 07:47 WBC RBC Hgb Hct MCV MCH MCHC RDW Plt Count Lymph % (Auto) [place] % (Auto) Lymph # (Auto) [place] # (Auto) Baso # (Auto) Seg Neutrophils % Seg Neuts % (Manual) Lymphocytes % (Manual) Monocytes % (Manual) Nucleated RBC % Seg Neutrophils # Seg Neutrophils # Man Lymphocytes # (Manual) Monocytes # (Manual) PT INR APTT Fibrinogen D-Dimer ABG pH POC ABG pCO2 POC ABG pO2 ABG pO2 ABG HCO3 ABG Base Excess ABG Hemoglobin ABG Oxyhemoglobin ABG Sodium ABG Potassium ABG Chloride ABG Glucose VBG pH Oxyhemoglobin Carboxyhemoglobin Sodium Potassium Chloride Carbon Dioxide BUN Creatinine Glucose POC Glucose 107 H 121 H 111 H Random Insulin C-Peptide Lactic Acid Calcium Ionized Calcium Phosphorus Magnesium AST ALT Alkaline Phosphatase Lactate Dehydrogenase NT-Pro-B Natriuret Pep Total Protein Albumin Arterial Blood Glucose Arterial Blood Ionized Calcium Urine WBC (Auto) Vancomycin Trough Phenytoin Crossmatch 11/05/20 11/06/20 11/06/20 23:24 17:04 23:36 WBC RBC Hgb Hct MCV MCH MCHC RDW Plt Count Lymph % (Auto) [place] % (Auto) Lymph # (Auto) [place] # (Auto) Baso # (Auto) Seg Neutrophils % Seg Neuts % (Manual) Lymphocytes % (Manual) Monocytes % (Manual) Nucleated RBC % Seg Neutrophils # Seg Neutrophils # Man Lymphocytes # (Manual) Monocytes # (Manual) PT INR APTT Fibrinogen D-Dimer ABG pH POC ABG pCO2 POC ABG pO2 ABG pO2 ABG HCO3 ABG Base Excess ABG Hemoglobin ABG Oxyhemoglobin ABG Sodium ABG Potassium ABG Chloride ABG Glucose VBG pH Oxyhemoglobin Carboxyhemoglobin Sodium Potassium Chloride Carbon Dioxide BUN Creatinine Glucose POC Glucose 111 H 112 H 108 H Random Insulin C-Peptide Lactic Acid Calcium Ionized Calcium Phosphorus Magnesium AST ALT Alkaline Phosphatase Lactate Dehydrogenase NT-Pro-B Natriuret Pep Total Protein Albumin Arterial Blood Glucose Arterial Blood Ionized Calcium Urine WBC (Auto) Vancomycin Trough Phenytoin Crossmatch 11/07/20 11/07/20 11/07/20 03:33 04:44 04:44 WBC RBC Hgb Hct MCV MCH MCHC RDW 16.6 H Plt Count Lymph % (Auto) [place] % (Auto) 13.1 H Lymph # (Auto) [place] # (Auto) 1.3 H Baso # (Auto) Seg Neutrophils % Seg Neuts % (Manual) Lymphocytes % (Manual) Monocytes % (Manual) Nucleated RBC % Seg Neutrophils # Seg Neutrophils # Man Lymphocytes # (Manual) Monocytes # (Manual) PT INR APTT Fibrinogen D-Dimer ABG pH POC ABG pCO2 POC ABG pO2 ABG pO2 ABG HCO3 ABG Base Excess ABG Hemoglobin ABG Oxyhemoglobin ABG Sodium ABG Potassium ABG Chloride ABG Glucose VBG pH Oxyhemoglobin Carboxyhemoglobin Sodium Potassium Chloride Carbon Dioxide BUN Creatinine Glucose 103 H POC Glucose 109 H Random Insulin C-Peptide Lactic Acid Calcium Ionized Calcium Phosphorus 5.30 H Magnesium AST ALT Alkaline Phosphatase Lactate Dehydrogenase NT-Pro-B Natriuret Pep Total Protein Albumin Arterial Blood Glucose Arterial Blood Ionized Calcium Urine WBC (Auto) Vancomycin Trough Phenytoin Crossmatch 11/07/20 11/07/20 11/08/20 15:58 23:46 07:30 WBC RBC Hgb Hct MCV MCH MCHC RDW Plt Count Lymph % (Auto) [place] % (Auto) Lymph # (Auto) [place] # (Auto) Baso # (Auto) Seg Neutrophils % Seg Neuts % (Manual) Lymphocytes % (Manual) Monocytes % (Manual) Nucleated RBC % Seg Neutrophils # Seg Neutrophils # Man Lymphocytes # (Manual) Monocytes # (Manual) PT INR APTT Fibrinogen D-Dimer ABG pH POC ABG pCO2 POC ABG pO2 ABG pO2 ABG HCO3 ABG Base Excess ABG Hemoglobin ABG Oxyhemoglobin ABG Sodium ABG Potassium ABG Chloride ABG Glucose VBG pH Oxyhemoglobin Carboxyhemoglobin Sodium Potassium Chloride Carbon Dioxide BUN Creatinine Glucose POC Glucose 108 H 106 H 109 H Random Insulin C-Peptide Lactic Acid Calcium Ionized Calcium Phosphorus Magnesium AST ALT Alkaline Phosphatase Lactate Dehydrogenase NT-Pro-B Natriuret Pep Total Protein Albumin Arterial Blood Glucose Arterial Blood Ionized Calcium Urine WBC (Auto) Vancomycin Trough Phenytoin Crossmatch 11/08/20 11/08/20 11/09/20 11:48 23:32 17:10 WBC RBC Hgb Hct MCV MCH MCHC RDW Plt Count Lymph % (Auto) [place] % (Auto) Lymph # (Auto) [place] # (Auto) Baso # (Auto) Seg Neutrophils % Seg Neuts % (Manual) Lymphocytes % (Manual) Monocytes % (Manual) Nucleated RBC % Seg Neutrophils # Seg Neutrophils # Man Lymphocytes # (Manual) Monocytes # (Manual) PT INR APTT Fibrinogen D-Dimer ABG pH POC ABG pCO2 POC ABG pO2 ABG pO2 ABG HCO3 ABG Base Excess ABG Hemoglobin ABG Oxyhemoglobin ABG Sodium ABG Potassium ABG Chloride ABG Glucose VBG pH Oxyhemoglobin Carboxyhemoglobin Sodium Potassium Chloride Carbon Dioxide BUN Creatinine Glucose POC Glucose 110 H 116 H 112 H Random Insulin C-Peptide Lactic Acid Calcium Ionized Calcium Phosphorus Magnesium AST ALT Alkaline Phosphatase Lactate Dehydrogenase NT-Pro-B Natriuret Pep Total Protein Albumin Arterial Blood Glucose Arterial Blood Ionized Calcium Urine WBC (Auto) Vancomycin Trough Phenytoin Crossmatch 11/09/20 11/10/20 11/10/20 21:42 05:49 07:17 WBC RBC Hgb Hct MCV MCH MCHC RDW Plt Count Lymph % (Auto) [place] % (Auto) Lymph # (Auto) [place] # (Auto) Baso # (Auto) Seg Neutrophils % Seg Neuts % (Manual) Lymphocytes % (Manual) Monocytes % (Manual) Nucleated RBC % Seg Neutrophils # Seg Neutrophils # Man Lymphocytes # (Manual) Monocytes # (Manual) PT INR APTT Fibrinogen D-Dimer ABG pH POC ABG pCO2 POC ABG pO2 ABG pO2 ABG HCO3 ABG Base Excess ABG Hemoglobin ABG Oxyhemoglobin ABG Sodium ABG Potassium ABG Chloride ABG Glucose VBG pH Oxyhemoglobin Carboxyhemoglobin Sodium Potassium Chloride Carbon Dioxide BUN Creatinine Glucose POC Glucose 110 H 108 H 111 H Random Insulin C-Peptide Lactic Acid Calcium Ionized Calcium Phosphorus Magnesium AST ALT Alkaline Phosphatase Lactate Dehydrogenase NT-Pro-B Natriuret Pep Total Protein Albumin Arterial Blood Glucose Arterial Blood Ionized Calcium Urine WBC (Auto) Vancomycin Trough Phenytoin Crossmatch 11/10/20 11/11/20 11/11/20 20:36 04:58 11:56 WBC RBC Hgb Hct MCV MCH MCHC RDW Plt Count Lymph % (Auto) [place] % (Auto) Lymph # (Auto) [place] # (Auto) Baso # (Auto) Seg Neutrophils % Seg Neuts % (Manual) Lymphocytes % (Manual) Monocytes % (Manual) Nucleated RBC % Seg Neutrophils # Seg Neutrophils # Man Lymphocytes # (Manual) Monocytes # (Manual) PT INR APTT Fibrinogen D-Dimer ABG pH POC ABG pCO2 POC ABG pO2 ABG pO2 ABG HCO3 ABG Base Excess ABG Hemoglobin ABG Oxyhemoglobin ABG Sodium ABG Potassium ABG Chloride ABG Glucose VBG pH Oxyhemoglobin Carboxyhemoglobin Sodium Potassium Chloride Carbon Dioxide BUN Creatinine Glucose POC Glucose 111 H 109 H 109 H Random Insulin C-Peptide Lactic Acid Calcium Ionized Calcium Phosphorus Magnesium AST ALT Alkaline Phosphatase Lactate Dehydrogenase NT-Pro-B Natriuret Pep Total Protein Albumin Arterial Blood Glucose Arterial Blood Ionized Calcium Urine WBC (Auto) Vancomycin Trough Phenytoin Crossmatch 11/11/20 11/11/20 11/11/20 13:50 13:50 15:50 WBC RBC Hgb Hct MCV MCH MCHC RDW Plt Count Lymph % (Auto) [place] % (Auto) Lymph # (Auto) [place] # (Auto) Baso # (Auto) Seg Neutrophils % Seg Neuts % (Manual) Lymphocytes % (Manual) Monocytes % (Manual) Nucleated RBC % Seg Neutrophils # Seg Neutrophils # Man Lymphocytes # (Manual) Monocytes # (Manual) PT INR APTT Fibrinogen D-Dimer 1974.47 H ABG pH POC ABG pCO2 POC ABG pO2 ABG pO2 ABG HCO3 ABG Base Excess ABG Hemoglobin ABG Oxyhemoglobin ABG Sodium ABG Potassium ABG Chloride ABG Glucose VBG pH Oxyhemoglobin Carboxyhemoglobin Sodium Potassium Chloride Carbon Dioxide BUN Creatinine Glucose POC Glucose 107 H Random Insulin C-Peptide Lactic Acid Calcium Ionized Calcium Phosphorus Magnesium AST ALT Alkaline Phosphatase Lactate Dehydrogenase NT-Pro-B Natriuret Pep Total Protein Albumin Arterial Blood Glucose Arterial Blood Ionized Calcium Urine WBC (Auto) > 182.0 H Vancomycin Trough Phenytoin Crossmatch 11/11/20 11/12/20 11/12/20 23:17 11:33 22:20 WBC RBC Hgb Hct MCV MCH MCHC RDW Plt Count Lymph % (Auto) [place] % (Auto) Lymph # (Auto) [place] # (Auto) Baso # (Auto) Seg Neutrophils % Seg Neuts % (Manual) Lymphocytes % (Manual) Monocytes % (Manual) Nucleated RBC % Seg Neutrophils # Seg Neutrophils # Man Lymphocytes # (Manual) Monocytes # (Manual) PT INR APTT Fibrinogen D-Dimer ABG pH POC ABG pCO2 POC ABG pO2 ABG pO2 ABG HCO3 ABG Base Excess ABG Hemoglobin ABG Oxyhemoglobin ABG Sodium ABG Potassium ABG Chloride ABG Glucose VBG pH Oxyhemoglobin Carboxyhemoglobin Sodium Potassium Chloride Carbon Dioxide BUN Creatinine Glucose POC Glucose 119 H 111 H 107 H Random Insulin C-Peptide Lactic Acid Calcium Ionized Calcium Phosphorus Magnesium AST ALT Alkaline Phosphatase Lactate Dehydrogenase NT-Pro-B Natriuret Pep Total Protein Albumin Arterial Blood Glucose Arterial Blood Ionized Calcium Urine WBC (Auto) Vancomycin Trough Phenytoin Crossmatch 11/13/20 11/13/20 11/13/20 01:52 07:33 10:05 WBC RBC Hgb Hct MCV MCH MCHC RDW Plt Count Lymph % (Auto) [place] % (Auto) Lymph # (Auto) [place] # (Auto) Baso # (Auto) Seg Neutrophils % Seg Neuts % (Manual) Lymphocytes % (Manual) Monocytes % (Manual) Nucleated RBC % Seg Neutrophils # Seg Neutrophils # Man Lymphocytes # (Manual) Monocytes # (Manual) PT INR APTT Fibrinogen D-Dimer ABG pH POC ABG pCO2 POC ABG pO2 ABG pO2 ABG HCO3 ABG Base Excess ABG Hemoglobin ABG Oxyhemoglobin ABG Sodium ABG Potassium ABG Chloride ABG Glucose VBG pH Oxyhemoglobin Carboxyhemoglobin Sodium Potassium Chloride Carbon Dioxide BUN Creatinine Glucose 114 H POC Glucose 124 H 106 H Random Insulin C-Peptide Lactic Acid Calcium Ionized Calcium Phosphorus 4.60 H Magnesium AST ALT Alkaline Phosphatase Lactate Dehydrogenase NT-Pro-B Natriuret Pep Total Protein Albumin Arterial Blood Glucose Arterial Blood Ionized Calcium Urine WBC (Auto) Vancomycin Trough Phenytoin Crossmatch 11/13/20 11/13/20 11/14/20 11:50 17:20 05:26 WBC RBC Hgb Hct MCV MCH MCHC RDW Plt Count Lymph % (Auto) [place] % (Auto) Lymph # (Auto) [place] # (Auto) Baso # (Auto) Seg Neutrophils % Seg Neuts % (Manual) Lymphocytes % (Manual) Monocytes % (Manual) Nucleated RBC % Seg Neutrophils # Seg Neutrophils # Man Lymphocytes # (Manual) Monocytes # (Manual) PT INR APTT Fibrinogen D-Dimer ABG pH POC ABG pCO2 POC ABG pO2 ABG pO2 ABG HCO3 ABG Base Excess ABG Hemoglobin ABG Oxyhemoglobin ABG Sodium ABG Potassium ABG Chloride ABG Glucose VBG pH Oxyhemoglobin Carboxyhemoglobin Sodium Potassium Chloride Carbon Dioxide BUN Creatinine Glucose POC Glucose 113 H 110 H 110 H Random Insulin C-Peptide Lactic Acid Calcium Ionized Calcium Phosphorus Magnesium AST ALT Alkaline Phosphatase Lactate Dehydrogenase NT-Pro-B Natriuret Pep Total Protein Albumin Arterial Blood Glucose Arterial Blood Ionized Calcium Urine WBC (Auto) Vancomycin Trough Phenytoin Crossmatch 11/14/20 11/15/20 11/15/20 23:23 05:07 11:48 WBC RBC Hgb Hct MCV MCH MCHC RDW Plt Count Lymph % (Auto) [place] % (Auto) Lymph # (Auto) [place] # (Auto) Baso # (Auto) Seg Neutrophils % Seg Neuts % (Manual) Lymphocytes % (Manual) Monocytes % (Manual) Nucleated RBC % Seg Neutrophils # Seg Neutrophils # Man Lymphocytes # (Manual) Monocytes # (Manual) PT INR APTT Fibrinogen D-Dimer ABG pH POC ABG pCO2 POC ABG pO2 ABG pO2 ABG HCO3 ABG Base Excess ABG Hemoglobin ABG Oxyhemoglobin ABG Sodium ABG Potassium ABG Chloride ABG Glucose VBG pH Oxyhemoglobin Carboxyhemoglobin Sodium Potassium Chloride Carbon Dioxide BUN Creatinine Glucose POC Glucose 112 H 115 H 114 H Random Insulin C-Peptide Lactic Acid Calcium Ionized Calcium Phosphorus Magnesium AST ALT Alkaline Phosphatase Lactate Dehydrogenase NT-Pro-B Natriuret Pep Total Protein Albumin Arterial Blood Glucose Arterial Blood Ionized Calcium Urine WBC (Auto) Vancomycin Trough Phenytoin Crossmatch 11/16/20 05:06 WBC RBC Hgb Hct MCV MCH MCHC RDW Plt Count Lymph % (Auto) [place] % (Auto) Lymph # (Auto) [place] # (Auto) Baso # (Auto) Seg Neutrophils % Seg Neuts % (Manual) Lymphocytes % (Manual) Monocytes % (Manual) Nucleated RBC % Seg Neutrophils # Seg Neutrophils # Man Lymphocytes # (Manual) Monocytes # (Manual) PT INR APTT Fibrinogen D-Dimer ABG pH POC ABG pCO2 POC ABG pO2 ABG pO2 ABG HCO3 ABG Base Excess ABG Hemoglobin ABG Oxyhemoglobin ABG Sodium ABG Potassium ABG Chloride ABG Glucose VBG pH Oxyhemoglobin Carboxyhemoglobin Sodium Potassium Chloride Carbon Dioxide BUN Creatinine Glucose POC Glucose 110 H Random Insulin C-Peptide Lactic Acid Calcium Ionized Calcium Phosphorus Magnesium AST ALT Alkaline Phosphatase Lactate Dehydrogenase NT-Pro-B Natriuret Pep Total Protein Albumin Arterial Blood Glucose Arterial Blood Ionized Calcium Urine WBC (Auto) Vancomycin Trough Phenytoin Crossmatch
[2020-11-18] MEDS: hydrALAZINE 25 MG TAB PO SCH ×3 (06:12→21:00)
[2020-11-18] MEDS: DEXTROSE 10% IN WATER 1,000 ML IV SCH ×2 (06:17→20:54)
[2020-11-18] MEDS: TOPIRAMATE TAB 25 MG TAB PO SCH ×2 (11:02→21:02)
[2020-11-18] MEDS: FUROSEMIDE 40 MG TAB PO SCH (11:03)
[2020-11-18] MEDS: FAMOTIDINE 20 MG TAB PO SCH ×2 (11:03→21:00)
[2020-11-18] MEDS: ENOXAPARIN 40 MG/0.4 ML INJ SUB-Q SCH (11:03)
[2020-11-18] MEDS: SODIUM BICARBONATE 650 MG TAB PO SCH ×3 (11:03→20:53)
--- NOTE | 2020-11-18 11:50 | Progress Note ---
Assessment and Plan 30 y/o female with Eclampsia, s/p emergent section with DIC, acute respiratory failure and worsening renal function. 11/18/20: Same recs as 11/1711/17/20: I have no further ideas in work up in regards to persistent hypoglycemia, despite continuous infusion of D10. All of her markers are elevated that would suggest insulinoma but unable to prove this with imaging. Patient needs transfer to a tertiary care center with Endocrinology available for consultation. Pulm status stable. Will see PRN. 11/16/20: STeroids have not helped so will stop today. Obtain CT scan as instructed to order by Radiology. If tumor present will need transfer to tertiary care center with inpatient endocrinology. Prognosis remains guarded. 11/15/20: Will go to radiology tomorrow morning. Will likely stop stress dose steroids tomorrow as no real improvement in sugars. COntinue Trach collar. Needs rehab. ProInsulin is back at 38.2 11/14/20: Will speak with radiology again on Monday to ask them to help me with the ordering of the scan. Continue stress dose steroids at least through tomorrow. No real change in blood sugars as of yet. 11/13/20: Attempt a trial of stress dose steroids to see if this improves sugar levels. I have called CT 3x but no answer. Will go down there and see if they are able to do a CT of the abdomen with pancreas protocol to observe for insulinoma. Continue supportive care and airway maintenance therapy. 11/12/20: Continue D10. I have reached out to an endocrine physician from an outside hospital who is willing to help me with the work up and possible help with diagnosis. 11/11/20: Call labs today about proinuslin. Signed letter for family today. Needs endocrine consult but not available here. 11/10/20: If proinsulin not back by tomorrow will call lab. Once I have all info, will see if I can obtain and endocrine consult via phone to discuss case. Continue supplemental oxygen. Needs PT 11/09/20: Follow up Proinsulin levels. No endocrine consult available here, but will do more research to see if we can find out why she remains D10 dependent. Pulm status is stable. Continue T-piece. Not a candidate for floor given D10 requirement. 11/06/20: No new recs. Will continue to check for outside lab results over the weekend. 11/05/20: Awaiting outside labs to work up hypoglycemia. Will add some PRN albuterol nebs to see if this will help to thin out her secretions. 11/04/20: No changes. No new recs. Awaiting send out labs to help figure out hypoglycemia. 11/03/20: Continue D10. Await send out labs. 11/02/20: Called lab today to ask how to order these send out labs. Continue D10 along with feeds for now. Stopped robinol and no further reports of increased thickness of secretions. given D10 requirement, do not feel comfortable with transition to the floor. 11/01/20: Will stop Robinol as this may be making secretions to thick. Huge risk for mucous plugging given mental state. Continue D10 and waiting on labs from yesterday. LFT's repeated and AST elevated along with alk phos. Both of these were elevated on admission, then resolved and now are elevated again. In current clinical state, not sure what to make of those numbers. They do not help with trying to figure out hypoglycemia and persistent need for D10. Continue IMCU care. 10/31/20: Will order midline for IV team vs peripheral IV's (multiple). Needs access for d10 as we have not been able to figure out why she is so hypoglyemic. Will measure serum insulin levels and C-peptide levels, as well proinsulin. All of these labs are sendouts so will have to call down to ask how to order as they are not coming up in [facility]. Given her requirement for supplemental IV sugar, not a candidate for floor transfer. 10/30/20: Continue step down monitoring for now. If does well the next 24-36 hours, then will consider floor transfer. Really needs to continue PT with PROM. Will speak with CM about options for here now that critical needs are becoming minimal. 10/29/20: Off vent now for 24 hours. Tolerating T-Piece. Will transition to step down for a few days. If does well there, consider transition to floor. Continue PT. Guarded prognosis. 10/28/20: Daily T-piece trials for as long as tolerated. Attempt to push further daily. OT does not do passive range of motion. Per PT note will do passive range of motion with patient. Guarded prognosis. Hoping to wean off vent and transition to floor. 10/27/20: Continue daily T-piece trials for as long as tolerated. Ok with resting on either PSV or full rate if needed at night but need to strengthen her respiratory muscles. PT/OT if possible. Will transition to step down prior to going to floor to insure stability. 10/26/20: Will obtain ABG today. If good, will attempt on T-piece later. Continue PT/OT. Will speak with CM about possibility of LTACH or nursing facility that can take trached patients. 10/23/20: Daily PSV trials for as long as patient will tolerate. Needs PT/OT consult for passive range of motion. 10/22/20: Will start prolonged PSV trials. Attempt to wean from vent and then transition to floor to see if mental status improves. Continue tube feeds. 10/21/20: Trach and peg placed. No sedation. Restart Lovenox for Upper Ext DVT. Restart feeds when surgery states ok to use PEG. C. Diff treatment per ID. Guarded prognosis. Will be a ocean [employer] intermediary wean. Hopeful to wean off vent at least and then can transfer to floor. 10/20/20: NPO after midnight. DVT study just read from 10/14 on yesterday showing upper ext DVT. Started on Lovenox but need to hold therapy until after surgery. could be source of fevers. No sedation. 10/19/20: Stable BP. Will meet/talk with family at noon over the phone with m rolandelf and case management. Need to discuss goals of care and what next steps would be. Patient would need trach and peg and transfer to LTACH if family ok with this. Follow up speciation of GNR's in blood. Has been on Cefepime. Continues therapy for C. Diff. Guarded prognosis. Continue daily PSV trials but not ready for extubation secondary to mental state. 10/18/20: Blood pressure is much better with the addition of meds started on yesterday. Need to have family meeting jesica in regards to goals of care. Continue Daily PSV trials but not ready for extubation. Continue therapy for C. Diff per ID. 10/17/20: CT scan was of no help in regards to fevers. C. Diff is positive and BP now is more uncontrolled despite increasing labetalol. Today will increase to 300 TID. Added TID Hydralazine and added PO lasix given her mild pulmonary htn seen on echo. Spoke with mother over the phone and she requests to come see the patient. Given current circumstances, will allow her to come briefly today and then will speak with her at the bedside. No neurology is available at the time and suspect these will be the majority of her questions. Tolerated PSV briefly yesterday and will do again today but not for extended periods as given her mental state she is not a candidate for extubation. I will also ask the mother about fpc care (trach and peg) when she comes today. Overall prognosis is guarded to poor. If oral meds cannot regulate blood pressure, may need Cardene drip. Continue therapy for C. Diff per ID. Subjective Date of service: 11/18/20 Principal diagnosis: Eclampsia/HELLP Syndrome, ADOLPH, DIC; s/p , s/p supracervical hyst Interval history: No acute events. Still hypoglycemic. Objective Vital Signs - 12hr 11/18/20 11/18/20 11/18/20 00:00 00:30 01:00 Temperature 99.0 F Pulse Rate 95 H 94 H 100 H Pulse Rate [ 86 From Monitor] Respiratory 20 16 13 Rate Blood Pressure 126/72 116/68 121/79 O2 Sat by Pulse 99 98 98 Oximetry O2 Sat by Pulse Oximetry [ Assessment] 11/18/20 11/18/20 11/18/20 01:31 02:00 02:31 Temperature Pulse Rate 101 H 97 H 99 H Pulse Rate [ From Monitor] Respiratory 19 24 20 Rate Blood Pressure 120/81 115/84 115/88 O2 Sat by Pulse 98 99 98 Oximetry O2 Sat by Pulse Oximetry [ Assessment] 11/18/20 11/18/20 11/18/20 03:00 03:30 04:00 Temperature 99.2 F Pulse Rate 97 H 82 96 H Pulse Rate [ 98 H From Monitor] Respiratory 17 12 22 Rate Blood Pressure 129/87 129/77 131/87 O2 Sat by Pulse 98 98 99 Oximetry O2 Sat by Pulse Oximetry [ Assessment] 11/18/20 11/18/20 11/18/20 04:30 05:00 05:20 Temperature Pulse Rate 99 H 84 Pulse Rate [ From Monitor] Respiratory 26 H 19 Rate Blood Pressure 134/69 133/82 O2 Sat by Pulse 98 98 Oximetry O2 Sat by Pulse 100 Oximetry [ Assessment] 11/18/20 11/18/20 11/18/20 05:30 06:00 06:12 Temperature Pulse Rate 79 83 71 Pulse Rate [ From Monitor] Respiratory 20 24 Rate Blood Pressure 113/72 115/73 115/73 O2 Sat by Pulse 97 97 Oximetry O2 Sat by Pulse Oximetry [ Assessment] 11/18/20 11/18/20 11/18/20 06:30 08:00 08:33 Temperature 99.4 F Pulse Rate 92 H Pulse Rate [ From Monitor] Respiratory 17 Rate Blood Pressure 117/68 O2 Sat by Pulse 98 99 Oximetry O2 Sat by Pulse 99 Oximetry [ Assessment] 11/18/20 11:03 Temperature Pulse Rate 102 H Pulse Rate [ From Monitor] Respiratory Rate Blood Pressure O2 Sat by Pulse Oximetry O2 Sat by Pulse Oximetry [ Assessment] Constitutional: comatose, other (s/p trach) Eyes: non-icteric ENT: oropharynx moist Neck: other (large in cirumference) Effort: normal Ascultation: Bilateral: clear, diminished breath sounds, rhonchi, other (coarse BS bilaterally) Percussion: Bilateral: not dull Cardiovascular: regular rate and rhythm, other (no mrg) Gastrointestinal: normoactive bowel sounds, soft Extremities: no cyanosis, pink and warm Neurologic: other (unresponsive, not following commands, not tracking) Psychiatric: other (unable to assess) CBC and BMP: 11/07/20 04:44 11/13/20 10:05 ABG, PT/INR, D-dimer: ABG ABG pH 7.459 pH Units (7.350-7.450) H 10/26/20 10:30 POC ABG pCO2 20.7 mmHg (32.0-48.0) L 10/13/20 07:18 ABG pCO2 32.4 mm Hg 10/26/20 10:30 POC ABG pO2 137.9 mmHg (83-108) H 10/13/20 07:18 ABG pO2 112.2 mm Hg (80.0-90.0) H 10/26/20 10:30 POC ABG HCO3 14.8 10/13/20 07:18 ABG O2 Saturation 98.2 % (95.0-99.0) 10/26/20 10:30 PT/INR, D-dimer PT 13.6 Sec. (12.2-14.9) 10/21/20 13:54 INR 1.06 (0.87-1.13) 10/21/20 13:54 D-Dimer 1974.47 ng/mlDDU (0-234) H 11/11/20 13:50 Abnormal lab findings: Abnormal Labs 10/02/20 10/02/20 10/02/20 12:03 12:18 12:18 WBC 14.9 H RBC Hgb 9.1 L Hct MCV MCH 22 L MCHC 28 L RDW 17.6 H Plt Count 102 L Lymph % (Auto) [place] % (Auto) Lymph # (Auto) [place] # (Auto) Baso # (Auto) Seg Neutrophils % Seg Neuts % (Manual) 36.0 L Lymphocytes % (Manual) 49.0 H Monocytes % (Manual) Nucleated RBC % 6.0 H Seg Neutrophils # Seg Neutrophils # Man Lymphocytes # (Manual) 7.3 H Monocytes # (Manual) PT INR APTT Fibrinogen D-Dimer ABG pH POC ABG pCO2 POC ABG pO2 ABG pO2 ABG HCO3 ABG Base Excess ABG Hemoglobin ABG Oxyhemoglobin ABG Sodium ABG Potassium ABG Chloride ABG Glucose VBG pH Oxyhemoglobin Carboxyhemoglobin Sodium 134 L Potassium Chloride Carbon Dioxide 12 L BUN 6 L Creatinine Glucose 390 H POC Glucose 451 H Random Insulin C-Peptide Lactic Acid Calcium Ionized Calcium Phosphorus Magnesium AST 135 H ALT 85 H Alkaline Phosphatase 172 H Lactate Dehydrogenase 641 H NT-Pro-B Natriuret Pep Total Protein 5.4 L Albumin 2.3 L Arterial Blood Glucose Arterial Blood Ionized Calcium Urine WBC (Auto) Vancomycin Trough Phenytoin Crossmatch 10/02/20 10/02/20 10/02/20 12:50 13:05 13:05 WBC 38.6 H RBC Hgb 8.9 L Hct 29.0 L MCV 73 L MCH 22 L MCHC RDW 17.2 H Plt Count Lymph % (Auto) [place] % (Auto) Lymph # (Auto) [place] # (Auto) Baso # (Auto) Seg Neutrophils % Seg Neuts % (Manual) Lymphocytes % (Manual) Monocytes % (Manual) Nucleated RBC % 2.0 H Seg Neutrophils # Seg Neutrophils # Man 20.1 H Lymphocytes # (Manual) 10.4 H Monocytes # (Manual) 2.3 H PT INR APTT Fibrinogen D-Dimer ABG pH POC ABG pCO2 POC ABG pO2 ABG pO2 ABG HCO3 ABG Base Excess ABG Hemoglobin ABG Oxyhemoglobin ABG Sodium ABG Potassium ABG Chloride ABG Glucose VBG pH Oxyhemoglobin Carboxyhemoglobin Sodium Potassium Chloride Carbon Dioxide BUN Creatinine Glucose POC Glucose Random Insulin C-Peptide Lactic Acid Calcium Ionized Calcium Phosphorus Magnesium AST 184 H ALT 113 H Alkaline Phosphatase Lactate Dehydrogenase 769 H NT-Pro-B Natriuret Pep Total Protein Albumin Arterial Blood Glucose Arterial Blood Ionized Calcium Urine WBC (Auto) Vancomycin Trough Phenytoin Crossmatch See Detail 10/02/20 10/02/20 10/02/20 16:25 16:35 16:35 WBC RBC Hgb Hct MCV MCH MCHC RDW Plt Count Lymph % (Auto) [place] % (Auto) Lymph # (Auto) [place] # (Auto) Baso # (Auto) Seg Neutrophils % Seg Neuts % (Manual) Lymphocytes % (Manual) Monocytes % (Manual) Nucleated RBC % Seg Neutrophils # Seg Neutrophils # Man Lymphocytes # (Manual) Monocytes # (Manual) PT INR APTT Fibrinogen D-Dimer ABG pH 7.031 L* POC ABG pCO2 POC ABG pO2 ABG pO2 116.8 H ABG HCO3 12.7 L ABG Base Excess -16.9 L ABG Hemoglobin 7.8 L ABG Oxyhemoglobin ABG Sodium ABG Potassium ABG Chloride ABG Glucose VBG pH Oxyhemoglobin 94.9 L Carboxyhemoglobin Sodium Potassium Chloride Carbon Dioxide BUN Creatinine Glucose 403 H POC Glucose Random Insulin C-Peptide Lactic Acid 11.40 H* Calcium 6.3 L D Ionized Calcium Phosphorus Magnesium AST 70 H ALT Alkaline Phosphatase Lactate Dehydrogenase NT-Pro-B Natriuret Pep Total Protein 1.9 L D Albumin 1.2 L Arterial Blood Glucose Arterial Blood Ionized Calcium Urine WBC (Auto) Vancomycin Trough Phenytoin Crossmatch 10/02/20 10/02/20 10/02/20 18:18 18:18 22:30 WBC 11.5 H RBC 2.06 L Hgb 5.5 L* D Hct 17.3 L* D MCV MCH 27 L MCHC RDW 19.5 H Plt Count 60 L Lymph % (Auto) [place] % (Auto) Lymph # (Auto) [place] # (Auto) Baso # (Auto) Seg Neutrophils % Seg Neuts % (Manual) Lymphocytes % (Manual) 8.0 L Monocytes % (Manual) 8.0 H Nucleated RBC % 8.0 H Seg Neutrophils # Seg Neutrophils # Man Lymphocytes # (Manual) 0.9 L Monocytes # (Manual) 0.9 H PT 37.1 H INR 3.71 H APTT 135.8 H* Fibrinogen D-Dimer ABG pH 7.067 L* POC ABG pCO2 POC ABG pO2 ABG pO2 183.0 H ABG HCO3 14.1 L ABG Base Excess -15.1 L ABG Hemoglobin 7.7 L ABG Oxyhemoglobin ABG Sodium ABG Potassium ABG Chloride ABG Glucose VBG pH Oxyhemoglobin Carboxyhemoglobin Sodium Potassium Chloride Carbon Dioxide BUN Creatinine Glucose POC Glucose Random Insulin C-Peptide Lactic Acid Calcium Ionized Calcium Phosphorus Magnesium AST ALT Alkaline Phosphatase Lactate Dehydrogenase NT-Pro-B Natriuret Pep Total Protein Albumin Arterial Blood Glucose Arterial Blood Ionized Calcium Urine WBC (Auto) Vancomycin Trough Phenytoin Crossmatch 10/02/20 10/02/20 10/03/20 Unknown Unknown 00:01 WBC RBC Hgb Hct MCV MCH MCHC RDW Plt Count Lymph % (Auto) [place] % (Auto) Lymph # (Auto) [place] # (Auto) Baso # (Auto) Seg Neutrophils % Seg Neuts % (Manual) Lymphocytes % (Manual) Monocytes % (Manual) Nucleated RBC % Seg Neutrophils # Seg Neutrophils # Man Lymphocytes # (Manual) Monocytes # (Manual) PT 61.1 H INR 6.92 H* APTT 158.7 H* Fibrinogen < 60 L* D-Dimer > 20122 H ABG pH POC ABG pCO2 POC ABG pO2 ABG pO2 ABG HCO3 ABG Base Excess ABG Hemoglobin ABG Oxyhemoglobin ABG Sodium ABG Potassium ABG Chloride ABG Glucose VBG pH 6.949 L* Oxyhemoglobin Carboxyhemoglobin Sodium Potassium Chloride Carbon Dioxide BUN Creatinine Glucose POC Glucose 196 H Random Insulin C-Peptide Lactic Acid Calcium Ionized Calcium Phosphorus Magnesium AST ALT Alkaline Phosphatase Lactate Dehydrogenase NT-Pro-B Natriuret Pep Total Protein Albumin Arterial Blood Glucose Arterial Blood Ionized Calcium Urine WBC (Auto) Vancomycin Trough Phenytoin Crossmatch 10/03/20 10/03/20 10/03/20 00:40 00:40 00:40 WBC RBC Hgb Hct MCV MCH MCHC RDW Plt Count Lymph % (Auto) [place] % (Auto) Lymph # (Auto) [place] # (Auto) Baso # (Auto) Seg Neutrophils % Seg Neuts % (Manual) Lymphocytes % (Manual) Monocytes % (Manual) Nucleated RBC % Seg Neutrophils # Seg Neutrophils # Man Lymphocytes # (Manual) Monocytes # (Manual) PT 15.1 H INR 1.21 H APTT Fibrinogen D-Dimer ABG pH POC ABG pCO2 POC ABG pO2 ABG pO2 ABG HCO3 ABG Base Excess ABG Hemoglobin ABG Oxyhemoglobin ABG Sodium ABG Potassium ABG Chloride ABG Glucose VBG pH Oxyhemoglobin Carboxyhemoglobin Sodium 136 L Potassium Chloride Carbon Dioxide BUN Creatinine 1.6 H D Glucose 106 H POC Glucose Random Insulin C-Peptide Lactic Acid 5.60 H* Calcium 6.5 L Ionized Calcium Phosphorus Magnesium AST 232 H ALT 104 H Alkaline Phosphatase Lactate Dehydrogenase NT-Pro-B Natriuret Pep Total Protein 3.9 L D Albumin 2.4 L Arterial Blood Glucose Arterial Blood Ionized Calcium Urine WBC (Auto) Vancomycin Trough Phenytoin Crossmatch 10/03/20 10/03/20 10/03/20 02:08 02:08 02:08 WBC 17.6 H RBC 3.27 L Hgb 9.9 L D Hct 29.9 L D MCV MCH MCHC RDW 16.5 H Plt Count 75 L Lymph % (Auto) [place] % (Auto) Lymph # (Auto) [place] # (Auto) Baso # (Auto) Seg Neutrophils % Seg Neuts % (Manual) 76.0 H Lymphocytes % (Manual) Monocytes % (Manual) Nucleated RBC % 8.0 H Seg Neutrophils # Seg Neutrophils # Man 13.4 H Lymphocytes # (Manual) Monocytes # (Manual) PT INR APTT Fibrinogen D-Dimer ABG pH POC ABG pCO2 POC ABG pO2 ABG pO2 ABG HCO3 ABG Base Excess ABG Hemoglobin ABG Oxyhemoglobin ABG Sodium ABG Potassium ABG Chloride ABG Glucose VBG pH Oxyhemoglobin Carboxyhemoglobin Sodium Potassium Chloride Carbon Dioxide 19 L BUN Creatinine 1.4 H Glucose 306 H POC Glucose Random Insulin C-Peptide Lactic Acid 10.50 H* Calcium 6.4 L Ionized Calcium Phosphorus Magnesium AST ALT Alkaline Phosphatase Lactate Dehydrogenase NT-Pro-B Natriuret Pep Total Protein Albumin Arterial Blood Glucose Arterial Blood Ionized Calcium Urine WBC (Auto) Vancomycin Trough Phenytoin Crossmatch 10/03/20 10/03/20 10/03/20 02:42 03:59 05:31 WBC RBC Hgb Hct MCV MCH MCHC RDW Plt Count Lymph % (Auto) [place] % (Auto) Lymph # (Auto) [place] # (Auto) Baso # (Auto) Seg Neutrophils % Seg Neuts % (Manual) Lymphocytes % (Manual) Monocytes % (Manual) Nucleated RBC % Seg Neutrophils # Seg Neutrophils # Man Lymphocytes # (Manual) Monocytes # (Manual) PT INR APTT Fibrinogen D-Dimer ABG pH 7.144 L POC ABG pCO2 54.4 H POC ABG pO2 ABG pO2 ABG HCO3 ABG Base Excess ABG Hemoglobin 10.0 L ABG Oxyhemoglobin ABG Sodium ABG Potassium ABG Chloride 108.0 H ABG Glucose 306 H VBG pH Oxyhemoglobin Carboxyhemoglobin Sodium Potassium Chloride Carbon Dioxide BUN Creatinine Glucose POC Glucose 209 H Random Insulin C-Peptide Lactic Acid 9.20 H* Calcium Ionized Calcium Phosphorus Magnesium AST ALT Alkaline Phosphatase Lactate Dehydrogenase NT-Pro-B Natriuret Pep Total Protein Albumin Arterial Blood Glucose 306 H Arterial Blood Ionized Calcium 3.7 L Urine WBC (Auto) Vancomycin Trough Phenytoin Crossmatch 10/03/20 10/03/20 10/03/20 09:00 09:00 09:00 WBC 27.4 H RBC 2.84 L Hgb 8.5 L Hct 25.1 L MCV MCH MCHC RDW 16.1 H Plt Count 72 L Lymph % (Auto) [place] % (Auto) Lymph # (Auto) [place] # (Auto) Baso # (Auto) Seg Neutrophils % Seg Neuts % (Manual) Lymphocytes % (Manual) 11.0 L Monocytes % (Manual) Nucleated RBC % 3.0 H Seg Neutrophils # Seg Neutrophils # Man 18.4 H Lymphocytes # (Manual) Monocytes # (Manual) 1.9 H PT INR APTT Fibrinogen D-Dimer ABG pH POC ABG pCO2 POC ABG pO2 ABG pO2 ABG HCO3 ABG Base Excess ABG Hemoglobin ABG Oxyhemoglobin ABG Sodium ABG Potassium ABG Chloride ABG Glucose VBG pH Oxyhemoglobin Carboxyhemoglobin Sodium Potassium Chloride Carbon Dioxide BUN Creatinine 1.7 H Glucose 216 H POC Glucose Random Insulin C-Peptide Lactic Acid 9.20 H* Calcium 6.3 L Ionized Calcium Phosphorus Magnesium AST 331 H ALT 171 H Alkaline Phosphatase Lactate Dehydrogenase NT-Pro-B Natriuret Pep Total Protein 3.7 L Albumin 1.9 L Arterial Blood Glucose Arterial Blood Ionized Calcium Urine WBC (Auto) Vancomycin Trough Phenytoin Crossmatch 10/03/20 10/03/20 10/03/20 11:20 11:46 11:50 WBC 28.7 H RBC 2.67 L Hgb 8.0 L Hct 23.7 L MCV MCH MCHC RDW 16.6 H Plt Count 76 L Lymph % (Auto) [place] % (Auto) Lymph # (Auto) [place] # (Auto) Baso # (Auto) Seg Neutrophils % Seg Neuts % (Manual) Lymphocytes % (Manual) Monocytes % (Manual) Nucleated RBC % Seg Neutrophils # Seg Neutrophils # Man Lymphocytes # (Manual) Monocytes # (Manual) PT INR APTT Fibrinogen D-Dimer ABG pH POC ABG pCO2 POC ABG pO2 ABG pO2 ABG HCO3 ABG Base Excess ABG Hemoglobin ABG Oxyhemoglobin ABG Sodium ABG Potassium ABG Chloride ABG Glucose VBG pH Oxyhemoglobin Carboxyhemoglobin Sodium Potassium Chloride Carbon Dioxide BUN Creatinine Glucose POC Glucose 125 H Random Insulin C-Peptide Lactic Acid 8.00 H* Calcium Ionized Calcium Phosphorus Magnesium AST ALT Alkaline Phosphatase Lactate Dehydrogenase NT-Pro-B Natriuret Pep Total Protein Albumin Arterial Blood Glucose Arterial Blood Ionized Calcium Urine WBC (Auto) Vancomycin Trough Phenytoin Crossmatch 10/03/20 10/04/20 10/04/20 11:50 00:40 00:40 WBC RBC Hgb 6.8 L Hct 19.4 L* MCV MCH MCHC RDW Plt Count 49 L Lymph % (Auto) [place] % (Auto) Lymph # (Auto) [place] # (Auto) Baso # (Auto) Seg Neutrophils % Seg Neuts % (Manual) Lymphocytes % (Manual) Monocytes % (Manual) Nucleated RBC % Seg Neutrophils # Seg Neutrophils # Man Lymphocytes # (Manual) Monocytes # (Manual) PT INR APTT Fibrinogen D-Dimer ABG pH 7.244 L POC ABG pCO2 POC ABG pO2 ABG pO2 ABG HCO3 ABG Base Excess -4.5 L ABG Hemoglobin 7.3 L ABG Oxyhemoglobin ABG Sodium ABG Potassium ABG Chloride ABG Glucose VBG pH Oxyhemoglobin Carboxyhemoglobin Sodium Potassium Chloride Carbon Dioxide BUN Creatinine Glucose POC Glucose Random Insulin C-Peptide Lactic Acid Calcium Ionized Calcium Phosphorus Magnesium AST ALT Alkaline Phosphatase Lactate Dehydrogenase NT-Pro-B Natriuret Pep Total Protein Albumin Arterial Blood Glucose Arterial Blood Ionized Calcium Urine WBC (Auto) Vancomycin Trough Phenytoin Crossmatch 12/10/04/20 10/04/20 03:53 10:00 10:00 WBC 14.6 H RBC 2.57 L Hgb 7.6 L Hct 22.5 L MCV MCH MCHC RDW 15.8 H Plt Count 38 L Lymph % (Auto) 7.7 L [place] % (Auto) Lymph # (Auto) 1.1 L [place] # (Auto) 0.9 H Baso # (Auto) Seg Neutrophils % 85.6 H Seg Neuts % (Manual) Lymphocytes % (Manual) Monocytes % (Manual) Nucleated RBC % Seg Neutrophils # 12.5 H Seg Neutrophils # Man Lymphocytes # (Manual) Monocytes # (Manual) PT INR APTT Fibrinogen D-Dimer ABG pH POC ABG pCO2 POC ABG pO2 110.6 H ABG pO2 ABG HCO3 ABG Base Excess ABG Hemoglobin 6.7 L ABG Oxyhemoglobin ABG Sodium 132.0 L ABG Potassium ABG Chloride ABG Glucose 111 H VBG pH Oxyhemoglobin Carboxyhemoglobin Sodium 134 L D Potassium Chloride 97.6 L Carbon Dioxide BUN Creatinine 1.7 H Glucose POC Glucose Random Insulin C-Peptide Lactic Acid Calcium 6.3 L Ionized Calcium Phosphorus Magnesium AST 203 H ALT 81 H Alkaline Phosphatase Lactate Dehydrogenase NT-Pro-B Natriuret Pep Total Protein 3.9 L Albumin 2.3 L Arterial Blood Glucose 111 H Arterial Blood Ionized Calcium 3.5 L Urine WBC (Auto) Vancomycin Trough Phenytoin Crossmatch 10/04/20 10/04/20 10/04/20 10:00 10:00 10:14 WBC RBC Hgb Hct MCV MCH MCHC RDW Plt Count Lymph % (Auto) [place] % (Auto) Lymph # (Auto) [place] # (Auto) Baso # (Auto) Seg Neutrophils % Seg Neuts % (Manual) Lymphocytes % (Manual) Monocytes % (Manual) Nucleated RBC % Seg Neutrophils # Seg Neutrophils # Man Lymphocytes # (Manual) Monocytes # (Manual) PT INR APTT Fibrinogen D-Dimer > 06467 H ABG pH POC ABG pCO2 POC ABG pO2 ABG pO2 ABG HCO3 ABG Base Excess ABG Hemoglobin ABG Oxyhemoglobin ABG Sodium ABG Potassium ABG Chloride ABG Glucose VBG pH Oxyhemoglobin Carboxyhemoglobin Sodium Potassium Chloride Carbon Dioxide BUN Creatinine Glucose POC Glucose Random Insulin C-Peptide Lactic Acid 3.90 H* Calcium Ionized Calcium Phosphorus Magnesium AST ALT Alkaline Phosphatase Lactate Dehydrogenase NT-Pro-B Natriuret Pep 2788 H Total Protein Albumin Arterial Blood Glucose Arterial Blood Ionized Calcium Urine WBC (Auto) Vancomycin Trough Phenytoin Crossmatch 10/04/20 10/04/20 10/04/20 14:00 14:00 18:00 WBC 15.7 H RBC 3.17 L Hgb 9.3 L 9.6 L Hct 27.2 L 28.0 L MCV MCH MCHC RDW 16.9 H Plt Count 41 L Lymph % (Auto) 8.6 L [place] % (Auto) Lymph # (Auto) [place] # (Auto) 0.9 H Baso # (Auto) Seg Neutrophils % 85.4 H Seg Neuts % (Manual) Lymphocytes % (Manual) Monocytes % (Manual) Nucleated RBC % Seg Neutrophils # 13.4 H Seg Neutrophils # Man Lymphocytes # (Manual) Monocytes # (Manual) PT INR APTT Fibrinogen D-Dimer ABG pH POC ABG pCO2 POC ABG pO2 ABG pO2 ABG HCO3 ABG Base Excess ABG Hemoglobin ABG Oxyhemoglobin ABG Sodium ABG Potassium ABG Chloride ABG Glucose VBG pH Oxyhemoglobin Carboxyhemoglobin Sodium 133 L Potassium Chloride 96.4 L Carbon Dioxide BUN 18 H Creatinine 1.7 H Glucose POC Glucose Random Insulin C-Peptide Lactic Acid Calcium 6.3 L Ionized Calcium Phosphorus Magnesium AST ALT Alkaline Phosphatase Lactate Dehydrogenase NT-Pro-B Natriuret Pep Total Protein Albumin Arterial Blood Glucose Arterial Blood Ionized Calcium Urine WBC (Auto) Vancomycin Trough Phenytoin Crossmatch 10/04/20 10/04/20 10/05/20 18:00 22:00 05:00 WBC 17.6 H RBC 3.34 L Hgb 9.9 L Hct 29.4 L MCV MCH MCHC RDW 17.1 H Plt Count 56 L Lymph % (Auto) 8.5 L [place] % (Auto) Lymph # (Auto) [place] # (Auto) 1.0 H Baso # (Auto) Seg Neutrophils % 85.1 H Seg Neuts % (Manual) Lymphocytes % (Manual) Monocytes % (Manual) Nucleated RBC % Seg Neutrophils # 15.0 H Seg Neutrophils # Man Lymphocytes # (Manual) Monocytes # (Manual) PT INR APTT Fibrinogen D-Dimer ABG pH POC ABG pCO2 POC ABG pO2 ABG pO2 ABG HCO3 ABG Base Excess ABG Hemoglobin ABG Oxyhemoglobin ABG Sodium ABG Potassium ABG Chloride ABG Glucose VBG pH Oxyhemoglobin Carboxyhemoglobin Sodium 136 L Potassium Chloride Carbon Dioxide BUN 18 H Creatinine 1.7 H Glucose POC Glucose Random Insulin C-Peptide Lactic Acid 2.30 H* Calcium 6.6 L Ionized Calcium Phosphorus Magnesium AST ALT Alkaline Phosphatase Lactate Dehydrogenase NT-Pro-B Natriuret Pep Total Protein Albumin Arterial Blood Glucose Arterial Blood Ionized Calcium Urine WBC (Auto) Vancomycin Trough Phenytoin Crossmatch 10/05/20 10/05/20 10/05/20 05:00 05:00 05:03 WBC RBC Hgb Hct MCV MCH MCHC RDW Plt Count Lymph % (Auto) [place] % (Auto) Lymph # (Auto) [place] # (Auto) Baso # (Auto) Seg Neutrophils % Seg Neuts % (Manual) Lymphocytes % (Manual) Monocytes % (Manual) Nucleated RBC % Seg Neutrophils # Seg Neutrophils # Man Lymphocytes # (Manual) Monocytes # (Manual) PT INR APTT Fibrinogen D-Dimer ABG pH 7.458 H POC ABG pCO2 POC ABG pO2 ABG pO2 74.3 L ABG HCO3 27.5 H ABG Base Excess 3.4 H ABG Hemoglobin 10.0 L ABG Oxyhemoglobin ABG Sodium ABG Potassium ABG Chloride ABG Glucose VBG pH Oxyhemoglobin 94.9 L Carboxyhemoglobin Sodium Potassium Chloride Carbon Dioxide BUN 19 H Creatinine 1.8 H Glucose POC Glucose Random Insulin C-Peptide Lactic Acid Calcium 6.8 L Ionized Calcium 3.9 L Phosphorus Magnesium AST 225 H ALT 85 H Alkaline Phosphatase Lactate Dehydrogenase NT-Pro-B Natriuret Pep Total Protein 4.5 L Albumin 2.7 L Arterial Blood Glucose Arterial Blood Ionized Calcium Urine WBC (Auto) Vancomycin Trough Phenytoin Crossmatch 10/05/20 10/05/20 10/05/20 10:10 15:00 19:40 WBC RBC Hgb Hct MCV MCH MCHC RDW Plt Count Lymph % (Auto) [place] % (Auto) Lymph # (Auto) [place] # (Auto) Baso # (Auto) Seg Neutrophils % Seg Neuts % (Manual) Lymphocytes % (Manual) Monocytes % (Manual) Nucleated RBC % Seg Neutrophils # Seg Neutrophils # Man Lymphocytes # (Manual) Monocytes # (Manual) PT INR APTT Fibrinogen D-Dimer ABG pH POC ABG pCO2 POC ABG pO2 ABG pO2 ABG HCO3 ABG Base Excess ABG Hemoglobin ABG Oxyhemoglobin ABG Sodium ABG Potassium ABG Chloride ABG Glucose VBG pH Oxyhemoglobin Carboxyhemoglobin Sodium Potassium 3.5 L Chloride Carbon Dioxide 31 H 32 H BUN 19 H 19 H Creatinine 1.8 H 1.8 H Glucose POC Glucose Random Insulin C-Peptide Lactic Acid Calcium 7.0 L 7.2 L Ionized Calcium Phosphorus Magnesium 2.90 H AST ALT Alkaline Phosphatase Lactate Dehydrogenase NT-Pro-B Natriuret Pep Total Protein Albumin Arterial Blood Glucose Arterial Blood Ionized Calcium Urine WBC (Auto) Vancomycin Trough Phenytoin Crossmatch 10/06/20 10/06/20 10/06/20 01:05 03:12 04:00 WBC 17.1 H RBC 3.47 L Hgb Hct MCV MCH MCHC RDW 17.4 H Plt Count 82 L Lymph % (Auto) 8.3 L [place] % (Auto) Lymph # (Auto) [place] # (Auto) 1.1 H Baso # (Auto) Seg Neutrophils % 83.8 H Seg Neuts % (Manual) Lymphocytes % (Manual) Monocytes % (Manual) Nucleated RBC % Seg Neutrophils # 14.3 H Seg Neutrophils # Man Lymphocytes # (Manual) Monocytes # (Manual) PT INR APTT Fibrinogen D-Dimer ABG pH 7.474 H POC ABG pCO2 POC ABG pO2 129.5 H ABG pO2 ABG HCO3 ABG Base Excess ABG Hemoglobin 11.4 L ABG Oxyhemoglobin ABG Sodium 131.8 L ABG Potassium ABG Chloride ABG Glucose 103 H VBG pH Oxyhemoglobin Carboxyhemoglobin 0.3 L Sodium Potassium Chloride Carbon Dioxide BUN Creatinine Glucose POC Glucose Random Insulin C-Peptide Lactic Acid Calcium Ionized Calcium Phosphorus Magnesium 3.70 H AST ALT Alkaline Phosphatase Lactate Dehydrogenase NT-Pro-B Natriuret Pep Total Protein Albumin Arterial Blood Glucose 103 H Arterial Blood Ionized Calcium 4.2 L Urine WBC (Auto) Vancomycin Trough Phenytoin Crossmatch 10/06/20 10/06/20 10/06/20 04:00 05:31 08:12 WBC RBC Hgb Hct MCV MCH MCHC RDW Plt Count Lymph % (Auto) [place] % (Auto) Lymph # (Auto) [place] # (Auto) Baso # (Auto) Seg Neutrophils % Seg Neuts % (Manual) Lymphocytes % (Manual) Monocytes % (Manual) Nucleated RBC % Seg Neutrophils # Seg Neutrophils # Man Lymphocytes # (Manual) Monocytes # (Manual) PT INR APTT Fibrinogen D-Dimer ABG pH POC ABG pCO2 POC ABG pO2 ABG pO2 ABG HCO3 ABG Base Excess ABG Hemoglobin ABG Oxyhemoglobin ABG Sodium ABG Potassium ABG Chloride ABG Glucose VBG pH Oxyhemoglobin Carboxyhemoglobin Sodium Potassium 3.5 L Chloride Carbon Dioxide BUN 19 H Creatinine 1.8 H Glucose 102 H POC Glucose 116 H Random Insulin C-Peptide Lactic Acid Calcium 7.2 L Ionized Calcium Phosphorus Magnesium 5.40 H AST 307 H ALT 137 H Alkaline Phosphatase Lactate Dehydrogenase NT-Pro-B Natriuret Pep Total Protein 4.5 L Albumin 2.6 L Arterial Blood Glucose Arterial Blood Ionized Calcium Urine WBC (Auto) Vancomycin Trough Phenytoin Crossmatch 10/06/20 10/06/20 10/06/20 11:00 11:50 20:13 WBC RBC Hgb Hct MCV MCH MCHC RDW Plt Count Lymph % (Auto) [place] % (Auto) Lymph # (Auto) [place] # (Auto) Baso # (Auto) Seg Neutrophils % Seg Neuts % (Manual) Lymphocytes % (Manual) Monocytes % (Manual) Nucleated RBC % Seg Neutrophils # Seg Neutrophils # Man Lymphocytes # (Manual) Monocytes # (Manual) PT INR APTT Fibrinogen D-Dimer ABG pH POC ABG pCO2 POC ABG pO2 ABG pO2 ABG HCO3 ABG Base Excess ABG Hemoglobin ABG Oxyhemoglobin ABG Sodium ABG Potassium ABG Chloride ABG Glucose VBG pH Oxyhemoglobin Carboxyhemoglobin Sodium Potassium Chloride Carbon Dioxide BUN Creatinine Glucose POC Glucose 106 H Random Insulin C-Peptide Lactic Acid Calcium Ionized Calcium Phosphorus Magnesium 6.50 H 6.20 H AST ALT Alkaline Phosphatase Lactate Dehydrogenase NT-Pro-B Natriuret Pep Total Protein Albumin Arterial Blood Glucose Arterial Blood Ionized Calcium Urine WBC (Auto) Vancomycin Trough Phenytoin Crossmatch 10/06/20 10/06/20 10/06/20 20:17 22:29 23:57 WBC RBC Hgb Hct MCV MCH MCHC RDW Plt Count Lymph % (Auto) [place] % (Auto) Lymph # (Auto) [place] # (Auto) Baso # (Auto) Seg Neutrophils % Seg Neuts % (Manual) Lymphocytes % (Manual) Monocytes % (Manual) Nucleated RBC % Seg Neutrophils # Seg Neutrophils # Man Lymphocytes # (Manual) Monocytes # (Manual) PT INR APTT Fibrinogen D-Dimer ABG pH POC ABG pCO2 POC ABG pO2 ABG pO2 ABG HCO3 ABG Base Excess ABG Hemoglobin ABG Oxyhemoglobin ABG Sodium ABG Potassium ABG Chloride ABG Glucose VBG pH Oxyhemoglobin Carboxyhemoglobin Sodium Potassium Chloride Carbon Dioxide BUN Creatinine Glucose POC Glucose 112 H 126 H 133 H Random Insulin C-Peptide Lactic Acid Calcium Ionized Calcium Phosphorus Magnesium AST ALT Alkaline Phosphatase Lactate Dehydrogenase NT-Pro-B Natriuret Pep Total Protein Albumin Arterial Blood Glucose Arterial Blood Ionized Calcium Urine WBC (Auto) Vancomycin Trough Phenytoin Crossmatch 10/07/20 10/07/20 10/07/20 00:35 02:22 03:16 WBC RBC Hgb Hct MCV MCH MCHC RDW Plt Count Lymph % (Auto) [place] % (Auto) Lymph # (Auto) [place] # (Auto) Baso # (Auto) Seg Neutrophils % Seg Neuts % (Manual) Lymphocytes % (Manual) Monocytes % (Manual) Nucleated RBC % Seg Neutrophils # Seg Neutrophils # Man Lymphocytes # (Manual) Monocytes # (Manual) PT INR APTT Fibrinogen D-Dimer ABG pH POC ABG pCO2 POC ABG pO2 ABG pO2 ABG HCO3 ABG Base Excess ABG Hemoglobin 11.6 L ABG Oxyhemoglobin ABG Sodium ABG Potassium ABG Chloride ABG Glucose 156 H VBG pH Oxyhemoglobin Carboxyhemoglobin 0.3 L Sodium Potassium Chloride Carbon Dioxide BUN Creatinine Glucose POC Glucose 124 H Random Insulin C-Peptide Lactic Acid Calcium Ionized Calcium Phosphorus Magnesium 5.90 H AST ALT Alkaline Phosphatase Lactate Dehydrogenase NT-Pro-B Natriuret Pep Total Protein Albumin Arterial Blood Glucose 156 H Arterial Blood Ionized Calcium 4.2 L Urine WBC (Auto) Vancomycin Trough Phenytoin Crossmatch 10/07/20 10/07/20 10/07/20 04:06 05:45 07:05 WBC 19.2 H RBC 3.57 L Hgb Hct MCV MCH MCHC 35 H RDW 17.1 H Plt Count 129 L Lymph % (Auto) [place] % (Auto) Lymph # (Auto) [place] # (Auto) Baso # (Auto) Seg Neutrophils % Seg Neuts % (Manual) 94.0 H Lymphocytes % (Manual) 6.0 L Monocytes % (Manual) Nucleated RBC % Seg Neutrophils # Seg Neutrophils # Man 18.0 H Lymphocytes # (Manual) Monocytes # (Manual) PT INR APTT Fibrinogen D-Dimer ABG pH POC ABG pCO2 POC ABG pO2 ABG pO2 ABG HCO3 ABG Base Excess ABG Hemoglobin ABG Oxyhemoglobin ABG Sodium ABG Potassium ABG Chloride ABG Glucose VBG pH Oxyhemoglobin Carboxyhemoglobin Sodium Potassium Chloride Carbon Dioxide BUN Creatinine Glucose POC Glucose 135 H 149 H Random Insulin C-Peptide Lactic Acid Calcium Ionized Calcium Phosphorus Magnesium AST ALT Alkaline Phosphatase Lactate Dehydrogenase NT-Pro-B Natriuret Pep Total Protein Albumin Arterial Blood Glucose Arterial Blood Ionized Calcium Urine WBC (Auto) Vancomycin Trough Phenytoin Crossmatch 10/07/20 10/07/20 10/07/20 07:05 07:05 12:21 WBC RBC Hgb Hct MCV MCH MCHC RDW Plt Count Lymph % (Auto) [place] % (Auto) Lymph # (Auto) [place] # (Auto) Baso # (Auto) Seg Neutrophils % Seg Neuts % (Manual) Lymphocytes % (Manual) Monocytes % (Manual) Nucleated RBC % Seg Neutrophils # Seg Neutrophils # Man Lymphocytes # (Manual) Monocytes # (Manual) PT INR APTT Fibrinogen D-Dimer ABG pH POC ABG pCO2 POC ABG pO2 ABG pO2 ABG HCO3 ABG Base Excess ABG Hemoglobin ABG Oxyhemoglobin ABG Sodium ABG Potassium ABG Chloride ABG Glucose VBG pH Oxyhemoglobin Carboxyhemoglobin Sodium Potassium Chloride Carbon Dioxide BUN 21 H Creatinine 1.7 H Glucose 171 H POC Glucose 124 H Random Insulin C-Peptide Lactic Acid Calcium 7.4 L Ionized Calcium Phosphorus Magnesium 6.10 H AST 245 H ALT 147 H Alkaline Phosphatase Lactate Dehydrogenase NT-Pro-B Natriuret Pep Total Protein 5.3 L Albumin 2.8 L Arterial Blood Glucose Arterial Blood Ionized Calcium Urine WBC (Auto) Vancomycin Trough Phenytoin Crossmatch 10/07/20 10/07/20 10/07/20 19:52 21:00 21:50 WBC RBC Hgb Hct MCV MCH MCHC RDW Plt Count Lymph % (Auto) [place] % (Auto) Lymph # (Auto) [place] # (Auto) Baso # (Auto) Seg Neutrophils % Seg Neuts % (Manual) Lymphocytes % (Manual) Monocytes % (Manual) Nucleated RBC % Seg Neutrophils # Seg Neutrophils # Man Lymphocytes # (Manual) Monocytes # (Manual) PT INR APTT Fibrinogen D-Dimer ABG pH POC ABG pCO2 POC ABG pO2 ABG pO2 ABG HCO3 ABG Base Excess ABG Hemoglobin ABG Oxyhemoglobin ABG Sodium ABG Potassium ABG Chloride ABG Glucose VBG pH Oxyhemoglobin Carboxyhemoglobin Sodium Potassium Chloride Carbon Dioxide BUN Creatinine Glucose POC Glucose 193 H 138 H Random Insulin C-Peptide Lactic Acid Calcium Ionized Calcium 4.4 L Phosphorus Magnesium AST ALT Alkaline Phosphatase Lactate Dehydrogenase NT-Pro-B Natriuret Pep Total Protein Albumin Arterial Blood Glucose Arterial Blood Ionized Calcium Urine WBC (Auto) Vancomycin Trough Phenytoin Crossmatch 10/07/20 10/08/20 10/08/20 23:41 04:20 05:30 WBC RBC Hgb Hct MCV MCH MCHC RDW Plt Count Lymph % (Auto) [place] % (Auto) Lymph # (Auto) [place] # (Auto) Baso # (Auto) Seg Neutrophils % Seg Neuts % (Manual) Lymphocytes % (Manual) Monocytes % (Manual) Nucleated RBC % Seg Neutrophils # Seg Neutrophils # Man Lymphocytes # (Manual) Monocytes # (Manual) PT INR APTT Fibrinogen D-Dimer ABG pH 7.467 H POC ABG pCO2 POC ABG pO2 189.8 H ABG pO2 ABG HCO3 ABG Base Excess ABG Hemoglobin 10.8 L ABG Oxyhemoglobin ABG Sodium ABG Potassium ABG Chloride ABG Glucose 133 H VBG pH Oxyhemoglobin Carboxyhemoglobin Sodium Potassium Chloride Carbon Dioxide BUN Creatinine Glucose POC Glucose 118 H 114 H Random Insulin C-Peptide Lactic Acid Calcium Ionized Calcium Phosphorus Magnesium AST ALT Alkaline Phosphatase Lactate Dehydrogenase NT-Pro-B Natriuret Pep Total Protein Albumin Arterial Blood Glucose 133 H Arterial Blood Ionized Calcium 4.2 L Urine WBC (Auto) Vancomycin Trough Phenytoin Crossmatch 10/08/20 10/08/20 10/08/20 05:43 06:42 06:42 WBC 23.6 H RBC 3.54 L Hgb Hct MCV MCH MCHC RDW 17.8 H Plt Count Lymph % (Auto) [place] % (Auto) Lymph # (Auto) [place] # (Auto) Baso # (Auto) Seg Neutrophils % Seg Neuts % (Manual) 93.0 H Lymphocytes % (Manual) 3.0 L Monocytes % (Manual) Nucleated RBC % 1.0 H Seg Neutrophils # Seg Neutrophils # Man 21.9 H Lymphocytes # (Manual) 0.7 L Monocytes # (Manual) 0.9 H PT INR APTT Fibrinogen D-Dimer ABG pH POC ABG pCO2 POC ABG pO2 ABG pO2 ABG HCO3 ABG Base Excess ABG Hemoglobin ABG Oxyhemoglobin ABG Sodium ABG Potassium ABG Chloride ABG Glucose VBG pH Oxyhemoglobin Carboxyhemoglobin Sodium Potassium Chloride Carbon Dioxide BUN 28 H Creatinine 1.6 H Glucose 141 H POC Glucose 126 H Random Insulin C-Peptide Lactic Acid Calcium 7.6 L Ionized Calcium Phosphorus Magnesium AST 162 H ALT 103 H Alkaline Phosphatase Lactate Dehydrogenase NT-Pro-B Natriuret Pep Total Protein 5.4 L Albumin 2.7 L Arterial Blood Glucose Arterial Blood Ionized Calcium Urine WBC (Auto) Vancomycin Trough Phenytoin Crossmatch 10/08/20 10/08/20 10/08/20 11:20 16:05 20:14 WBC RBC Hgb Hct MCV MCH MCHC RDW Plt Count Lymph % (Auto) [place] % (Auto) Lymph # (Auto) [place] # (Auto) Baso # (Auto) Seg Neutrophils % Seg Neuts % (Manual) Lymphocytes % (Manual) Monocytes % (Manual) Nucleated RBC % Seg Neutrophils # Seg Neutrophils # Man Lymphocytes # (Manual) Monocytes # (Manual) PT INR APTT Fibrinogen D-Dimer ABG pH POC ABG pCO2 POC ABG pO2 ABG pO2 ABG HCO3 ABG Base Excess ABG Hemoglobin ABG Oxyhemoglobin ABG Sodium ABG Potassium ABG Chloride ABG Glucose VBG pH Oxyhemoglobin Carboxyhemoglobin Sodium Potassium Chloride Carbon Dioxide BUN Creatinine Glucose POC Glucose 127 H 172 H 147 H Random Insulin C-Peptide Lactic Acid Calcium Ionized Calcium Phosphorus Magnesium AST ALT Alkaline Phosphatase Lactate Dehydrogenase NT-Pro-B Natriuret Pep Total Protein Albumin Arterial Blood Glucose Arterial Blood Ionized Calcium Urine WBC (Auto) Vancomycin Trough Phenytoin Crossmatch 10/08/20 10/08/20 10/09/20 21:27 23:24 02:10 WBC RBC Hgb Hct MCV MCH MCHC RDW Plt Count Lymph % (Auto) [place] % (Auto) Lymph # (Auto) [place] # (Auto) Baso # (Auto) Seg Neutrophils % Seg Neuts % (Manual) Lymphocytes % (Manual) Monocytes % (Manual) Nucleated RBC % Seg Neutrophils # Seg Neutrophils # Man Lymphocytes # (Manual) Monocytes # (Manual) PT INR APTT Fibrinogen D-Dimer ABG pH POC ABG pCO2 POC ABG pO2 ABG pO2 ABG HCO3 ABG Base Excess ABG Hemoglobin ABG Oxyhemoglobin ABG Sodium ABG Potassium ABG Chloride ABG Glucose VBG pH Oxyhemoglobin Carboxyhemoglobin Sodium Potassium Chloride Carbon Dioxide BUN Creatinine Glucose POC Glucose 140 H 135 H 111 H Random Insulin C-Peptide Lactic Acid Calcium Ionized Calcium Phosphorus Magnesium AST ALT Alkaline Phosphatase Lactate Dehydrogenase NT-Pro-B Natriuret Pep Total Protein Albumin Arterial Blood Glucose Arterial Blood Ionized Calcium Urine WBC (Auto) Vancomycin Trough Phenytoin Crossmatch 10/09/20 10/09/20 10/09/20 03:44 04:39 05:46 WBC 19.7 H RBC 3.51 L Hgb Hct MCV MCH MCHC RDW 17.7 H Plt Count Lymph % (Auto) [place] % (Auto) Lymph # (Auto) [place] # (Auto) Baso # (Auto) Seg Neutrophils % Seg Neuts % (Manual) 86.0 H Lymphocytes % (Manual) 4.0 L Monocytes % (Manual) 9.0 H Nucleated RBC % Seg Neutrophils # Seg Neutrophils # Man 16.9 H Lymphocytes # (Manual) 0.8 L Monocytes # (Manual) 1.8 H PT INR APTT Fibrinogen D-Dimer ABG pH 7.513 H POC ABG pCO2 POC ABG pO2 33.6 L ABG pO2 ABG HCO3 ABG Base Excess ABG Hemoglobin 11.1 L ABG Oxyhemoglobin 70.2 L ABG Sodium ABG Potassium 3.2 L ABG Chloride 108.0 H ABG Glucose 108 H VBG pH Oxyhemoglobin Carboxyhemoglobin Sodium Potassium Chloride Carbon Dioxide BUN Creatinine Glucose POC Glucose 109 H Random Insulin C-Peptide Lactic Acid Calcium Ionized Calcium Phosphorus Magnesium AST ALT Alkaline Phosphatase Lactate Dehydrogenase NT-Pro-B Natriuret Pep Total Protein Albumin Arterial Blood Glucose 108 H Arterial Blood Ionized Calcium 4.3 L Urine WBC (Auto) Vancomycin Trough Phenytoin Crossmatch 10/09/20 10/10/20 10/10/20 05:46 04:00 04:00 WBC 18.4 H RBC Hgb Hct MCV MCH MCHC RDW 17.5 H Plt Count Lymph % (Auto) 9.8 L [place] % (Auto) 8.8 H Lymph # (Auto) [place] # (Auto) 1.6 H Baso # (Auto) Seg Neutrophils % 80.0 H Seg Neuts % (Manual) Lymphocytes % (Manual) Monocytes % (Manual) Nucleated RBC % Seg Neutrophils # 14.7 H Seg Neutrophils # Man Lymphocytes # (Manual) Monocytes # (Manual) PT INR APTT Fibrinogen D-Dimer ABG pH POC ABG pCO2 POC ABG pO2 ABG pO2 ABG HCO3 ABG Base Excess ABG Hemoglobin ABG Oxyhemoglobin ABG Sodium ABG Potassium ABG Chloride ABG Glucose VBG pH Oxyhemoglobin Carboxyhemoglobin Sodium 146 H Potassium 3.2 L 2.9 L* Chloride 108.9 H 112.6 H Carbon Dioxide BUN 34 H 28 H Creatinine 1.4 H 1.3 H Glucose 109 H 101 H POC Glucose Random Insulin C-Peptide Lactic Acid Calcium 7.6 L 7.8 L Ionized Calcium Phosphorus Magnesium AST 137 H 122 H ALT 99 H 81 H Alkaline Phosphatase Lactate Dehydrogenase NT-Pro-B Natriuret Pep Total Protein 5.1 L 5.2 L Albumin 2.6 L 2.7 L Arterial Blood Glucose Arterial Blood Ionized Calcium Urine WBC (Auto) Vancomycin Trough Phenytoin Crossmatch 10/10/20 10/10/20 10/11/20 04:42 09:50 00:44 WBC RBC Hgb Hct MCV MCH MCHC RDW Plt Count Lymph % (Auto) [place] % (Auto) Lymph # (Auto) [place] # (Auto) Baso # (Auto) Seg Neutrophils % Seg Neuts % (Manual) Lymphocytes % (Manual) Monocytes % (Manual) Nucleated RBC % Seg Neutrophils # Seg Neutrophils # Man Lymphocytes # (Manual) Monocytes # (Manual) PT INR APTT Fibrinogen D-Dimer ABG pH 7.534 H POC ABG pCO2 POC ABG pO2 ABG pO2 95.2 H ABG HCO3 ABG Base Excess ABG Hemoglobin 11.3 L ABG Oxyhemoglobin ABG Sodium ABG Potassium ABG Chloride ABG Glucose VBG pH Oxyhemoglobin Carboxyhemoglobin Sodium Potassium Chloride Carbon Dioxide BUN Creatinine Glucose POC Glucose 109 H 106 H Random Insulin C-Peptide Lactic Acid Calcium Ionized Calcium Phosphorus Magnesium AST ALT Alkaline Phosphatase Lactate Dehydrogenase NT-Pro-B Natriuret Pep Total Protein Albumin Arterial Blood Glucose Arterial Blood Ionized Calcium Urine WBC (Auto) Vancomycin Trough Phenytoin Crossmatch 10/11/20 10/11/20 10/11/20 04:00 04:00 06:08 WBC 27.0 H RBC Hgb Hct MCV MCH MCHC RDW 17.7 H Plt Count Lymph % (Auto) 6.3 L [place] % (Auto) Lymph # (Auto) [place] # (Auto) 1.5 H Baso # (Auto) Seg Neutrophils % 87.1 H Seg Neuts % (Manual) Lymphocytes % (Manual) Monocytes % (Manual) Nucleated RBC % Seg Neutrophils # 23.5 H Seg Neutrophils # Man Lymphocytes # (Manual) Monocytes # (Manual) PT INR APTT Fibrinogen D-Dimer ABG pH POC ABG pCO2 POC ABG pO2 ABG pO2 ABG HCO3 ABG Base Excess ABG Hemoglobin ABG Oxyhemoglobin ABG Sodium ABG Potassium ABG Chloride ABG Glucose VBG pH Oxyhemoglobin Carboxyhemoglobin Sodium Potassium 3.2 L Chloride 110.4 H Carbon Dioxide 19 L BUN 22 H Creatinine Glucose 116 H POC Glucose 107 H Random Insulin C-Peptide Lactic Acid Calcium 7.7 L Ionized Calcium Phosphorus Magnesium 1.60 L AST ALT Alkaline Phosphatase Lactate Dehydrogenase NT-Pro-B Natriuret Pep Total Protein Albumin Arterial Blood Glucose Arterial Blood Ionized Calcium Urine WBC (Auto) Vancomycin Trough Phenytoin Crossmatch 10/11/20 10/11/20 10/12/20 11:41 13:26 03:52 WBC RBC Hgb Hct MCV MCH MCHC RDW Plt Count Lymph % (Auto) [place] % (Auto) Lymph # (Auto) [place] # (Auto) Baso # (Auto) Seg Neutrophils % Seg Neuts % (Manual) Lymphocytes % (Manual) Monocytes % (Manual) Nucleated RBC % Seg Neutrophils # Seg Neutrophils # Man Lymphocytes # (Manual) Monocytes # (Manual) PT INR APTT Fibrinogen D-Dimer ABG pH POC ABG pCO2 POC ABG pO2 ABG pO2 ABG HCO3 ABG Base Excess ABG Hemoglobin ABG Oxyhemoglobin ABG Sodium ABG Potassium ABG Chloride ABG Glucose VBG pH Oxyhemoglobin Carboxyhemoglobin Sodium Potassium Chloride Carbon Dioxide BUN Creatinine Glucose POC Glucose 116 H 114 H Random Insulin C-Peptide Lactic Acid Calcium Ionized Calcium Phosphorus Magnesium AST ALT Alkaline Phosphatase Lactate Dehydrogenase NT-Pro-B Natriuret Pep Total Protein Albumin Arterial Blood Glucose Arterial Blood Ionized Calcium Urine WBC (Auto) 24.0 H Vancomycin Trough Phenytoin Crossmatch 10/12/20 10/12/20 10/12/20 04:24 14:47 21:33 WBC RBC Hgb Hct MCV MCH MCHC RDW Plt Count Lymph % (Auto) [place] % (Auto) Lymph # (Auto) [place] # (Auto) Baso # (Auto) Seg Neutrophils % Seg Neuts % (Manual) Lymphocytes % (Manual) Monocytes % (Manual) Nucleated RBC % Seg Neutrophils # Seg Neutrophils # Man Lymphocytes # (Manual) Monocytes # (Manual) PT INR APTT Fibrinogen D-Dimer ABG pH POC ABG pCO2 POC ABG pO2 ABG pO2 ABG HCO3 ABG Base Excess ABG Hemoglobin ABG Oxyhemoglobin ABG Sodium ABG Potassium ABG Chloride ABG Glucose VBG pH Oxyhemoglobin Carboxyhemoglobin Sodium Potassium Chloride 109.9 H Carbon Dioxide 13 L BUN 18 H Creatinine Glucose 119 H POC Glucose 107 H Random Insulin C-Peptide Lactic Acid Calcium 7.6 L Ionized Calcium Phosphorus Magnesium 1.60 L AST ALT Alkaline Phosphatase Lactate Dehydrogenase NT-Pro-B Natriuret Pep Total Protein Albumin Arterial Blood Glucose Arterial Blood Ionized Calcium Urine WBC (Auto) Vancomycin Trough Phenytoin Crossmatch 10/12/20 10/12/20 10/13/20 Unknown Unknown 07:00 WBC 24.3 H RBC 3.38 L Hgb 9.8 L Hct MCV MCH MCHC RDW 18.7 H Plt Count Lymph % (Auto) [place] % (Auto) Lymph # (Auto) [place] # (Auto) Baso # (Auto) Seg Neutrophils % Seg Neuts % (Manual) 93.5 H Lymphocytes % (Manual) 4.5 L Monocytes % (Manual) Nucleated RBC % Seg Neutrophils # Seg Neutrophils # Man 22.7 H Lymphocytes # (Manual) 1.1 L Monocytes # (Manual) PT INR APTT Fibrinogen D-Dimer ABG pH POC ABG pCO2 POC ABG pO2 ABG pO2 ABG HCO3 ABG Base Excess ABG Hemoglobin ABG Oxyhemoglobin ABG Sodium ABG Potassium ABG Chloride ABG Glucose VBG pH Oxyhemoglobin Carboxyhemoglobin Sodium 135 L D Potassium 3.1 L Chloride Carbon Dioxide 17 L BUN Creatinine Glucose 510 H* POC Glucose Random Insulin C-Peptide Lactic Acid Calcium 7.2 L Ionized Calcium Phosphorus Magnesium AST ALT Alkaline Phosphatase Lactate Dehydrogenase NT-Pro-B Natriuret Pep Total Protein Albumin Arterial Blood Glucose Arterial Blood Ionized Calcium Urine WBC (Auto) Vancomycin Trough Phenytoin 5.7 L Crossmatch 10/13/20 10/13/20 10/13/20 07:00 07:00 07:18 WBC 23.6 H RBC 3.26 L Hgb 9.4 L Hct 28.7 L MCV MCH MCHC RDW 18.3 H Plt Count Lymph % (Auto) [place] % (Auto) Lymph # (Auto) [place] # (Auto) Baso # (Auto) Seg Neutrophils % Seg Neuts % (Manual) Lymphocytes % (Manual) Monocytes % (Manual) Nucleated RBC % Seg Neutrophils # Seg Neutrophils # Man Lymphocytes # (Manual) Monocytes # (Manual) PT INR APTT Fibrinogen D-Dimer ABG pH 7.473 H POC ABG pCO2 20.7 L POC ABG pO2 137.9 H ABG pO2 ABG HCO3 ABG Base Excess ABG Hemoglobin 11.2 L ABG Oxyhemoglobin 98.3 H ABG Sodium 135.9 L ABG Potassium ABG Chloride 111.0 H ABG Glucose 109 H VBG pH Oxyhemoglobin Carboxyhemoglobin 0.3 L Sodium 135 L Potassium 3.5 L Chloride 109.1 H Carbon Dioxide 18 L BUN Creatinine Glucose POC Glucose Random Insulin C-Peptide Lactic Acid Calcium 7.3 L Ionized Calcium Phosphorus Magnesium 1.60 L AST ALT Alkaline Phosphatase Lactate Dehydrogenase NT-Pro-B Natriuret Pep Total Protein Albumin Arterial Blood Glucose 109 H Arterial Blood Ionized Calcium Urine WBC (Auto) Vancomycin Trough Phenytoin Crossmatch 10/14/20 10/14/20 10/15/20 04:00 04:00 05:50 WBC 28.6 H 23.2 H RBC 3.61 L 3.43 L Hgb 9.9 L Hct 30.0 L MCV MCH MCHC RDW 18.3 H 18.2 H Plt Count Lymph % (Auto) [place] % (Auto) Lymph # (Auto) [place] # (Auto) Baso # (Auto) Seg Neutrophils % Seg Neuts % (Manual) 88.0 H 90.0 H Lymphocytes % (Manual) 5.0 L 4.0 L Monocytes % (Manual) Nucleated RBC % Seg Neutrophils # Seg Neutrophils # Man 25.2 H 20.9 H Lymphocytes # (Manual) 0.9 L Monocytes # (Manual) 1.4 H 0.9 H PT INR APTT Fibrinogen D-Dimer ABG pH POC ABG pCO2 POC ABG pO2 ABG pO2 ABG HCO3 ABG Base Excess ABG Hemoglobin ABG Oxyhemoglobin ABG Sodium ABG Potassium ABG Chloride ABG Glucose VBG pH Oxyhemoglobin Carboxyhemoglobin Sodium Potassium Chloride 109.9 H Carbon Dioxide 17 L BUN Creatinine Glucose POC Glucose Random Insulin C-Peptide Lactic Acid Calcium Ionized Calcium Phosphorus Magnesium AST ALT Alkaline Phosphatase Lactate Dehydrogenase NT-Pro-B Natriuret Pep Total Protein Albumin Arterial Blood Glucose Arterial Blood Ionized Calcium Urine WBC (Auto) Vancomycin Trough Phenytoin Crossmatch 10/15/20 10/16/2010/17/21 05:50 11:57 04:57 WBC 15.2 H RBC 3.43 L Hgb Hct MCV MCH MCHC RDW 18.1 H Plt Count Lymph % (Auto) [place] % (Auto) Lymph # (Auto) [place] # (Auto) Baso # (Auto) Seg Neutrophils % Seg Neuts % (Manual) Lymphocytes % (Manual) Monocytes % (Manual) Nucleated RBC % Seg Neutrophils # Seg Neutrophils # Man Lymphocytes # (Manual) Monocytes # (Manual) PT INR APTT Fibrinogen D-Dimer ABG pH POC ABG pCO2 POC ABG pO2 ABG pO2 ABG HCO3 ABG Base Excess ABG Hemoglobin ABG Oxyhemoglobin ABG Sodium ABG Potassium ABG Chloride ABG Glucose VBG pH Oxyhemoglobin Carboxyhemoglobin Sodium Potassium Chloride 110.3 H Carbon Dioxide 18 L BUN Creatinine Glucose 105 H POC Glucose 111 H Random Insulin C-Peptide Lactic Acid Calcium 8.3 L Ionized Calcium Phosphorus Magnesium AST ALT Alkaline Phosphatase Lactate Dehydrogenase NT-Pro-B Natriuret Pep Total Protein Albumin Arterial Blood Glucose Arterial Blood Ionized Calcium Urine WBC (Auto) Vancomycin Trough Phenytoin Crossmatch 10/17/20 10/17/20 10/18/20 05:25 21:16 01:31 WBC RBC Hgb Hct MCV MCH MCHC RDW Plt Count Lymph % (Auto) [place] % (Auto) Lymph # (Auto) [place] # (Auto) Baso # (Auto) Seg Neutrophils % Seg Neuts % (Manual) Lymphocytes % (Manual) Monocytes % (Manual) Nucleated RBC % Seg Neutrophils # Seg Neutrophils # Man Lymphocytes # (Manual) Monocytes # (Manual) PT INR APTT Fibrinogen D-Dimer ABG pH POC ABG pCO2 POC ABG pO2 ABG pO2 ABG HCO3 ABG Base Excess ABG Hemoglobin ABG Oxyhemoglobin ABG Sodium ABG Potassium ABG Chloride ABG Glucose VBG pH Oxyhemoglobin Carboxyhemoglobin Sodium Potassium Chloride Carbon Dioxide BUN Creatinine Glucose POC Glucose 107 H 106 H 119 H Random Insulin C-Peptide Lactic Acid Calcium Ionized Calcium Phosphorus Magnesium AST ALT Alkaline Phosphatase Lactate Dehydrogenase NT-Pro-B Natriuret Pep Total Protein Albumin Arterial Blood Glucose Arterial Blood Ionized Calcium Urine WBC (Auto) Vancomycin Trough Phenytoin Crossmatch 10/18/20 10/18/20 10/19/20 05:45 11:23 01:14 WBC RBC Hgb Hct MCV MCH MCHC RDW Plt Count Lymph % (Auto) [place] % (Auto) Lymph # (Auto) [place] # (Auto) Baso # (Auto) Seg Neutrophils % Seg Neuts % (Manual) Lymphocytes % (Manual) Monocytes % (Manual) Nucleated RBC % Seg Neutrophils # Seg Neutrophils # Man Lymphocytes # (Manual) Monocytes # (Manual) PT INR APTT Fibrinogen D-Dimer ABG pH POC ABG pCO2 POC ABG pO2 ABG pO2 ABG HCO3 ABG Base Excess ABG Hemoglobin ABG Oxyhemoglobin ABG Sodium ABG Potassium ABG Chloride ABG Glucose VBG pH Oxyhemoglobin Carboxyhemoglobin Sodium Potassium Chloride Carbon Dioxide BUN Creatinine Glucose POC Glucose 106 H 115 H 108 H Random Insulin C-Peptide Lactic Acid Calcium Ionized Calcium Phosphorus Magnesium AST ALT Alkaline Phosphatase Lactate Dehydrogenase NT-Pro-B Natriuret Pep Total Protein Albumin Arterial Blood Glucose Arterial Blood Ionized Calcium Urine WBC (Auto) Vancomycin Trough Phenytoin Crossmatch 10/19/20 10/20/20 10/20/20 09:57 05:40 07:59 WBC RBC Hgb Hct MCV MCH MCHC RDW Plt Count Lymph % (Auto) [place] % (Auto) Lymph # (Auto) [place] # (Auto) Baso # (Auto) Seg Neutrophils % Seg Neuts % (Manual) Lymphocytes % (Manual) Monocytes % (Manual) Nucleated RBC % Seg Neutrophils # Seg Neutrophils # Man Lymphocytes # (Manual) Monocytes # (Manual) PT INR APTT Fibrinogen D-Dimer ABG pH POC ABG pCO2 POC ABG pO2 ABG pO2 ABG HCO3 ABG Base Excess ABG Hemoglobin ABG Oxyhemoglobin ABG Sodium ABG Potassium ABG Chloride ABG Glucose VBG pH Oxyhemoglobin Carboxyhemoglobin Sodium Potassium Chloride Carbon Dioxide BUN Creatinine Glucose 106 H POC Glucose 122 H 109 H Random Insulin C-Peptide Lactic Acid Calcium Ionized Calcium Phosphorus Magnesium AST ALT Alkaline Phosphatase Lactate Dehydrogenase NT-Pro-B Natriuret Pep Total Protein Albumin Arterial Blood Glucose Arterial Blood Ionized Calcium Urine WBC (Auto) Vancomycin Trough Phenytoin Crossmatch 10/20/20 10/20/20 10/21/20 16:52 16:52 13:54 WBC 18.8 H 17.0 H RBC Hgb Hct MCV MCH MCHC RDW 17.7 H 17.8 H Plt Count 547 H 544 H Lymph % (Auto) 11.2 L [place] % (Auto) 8.1 H Lymph # (Auto) [place] # (Auto) 1.5 H Baso # (Auto) 0.2 H Seg Neutrophils % 78.8 H Seg Neuts % (Manual) Lymphocytes % (Manual) Monocytes % (Manual) Nucleated RBC % Seg Neutrophils # 14.8 H Seg Neutrophils # Man Lymphocytes # (Manual) Monocytes # (Manual) PT INR APTT Fibrinogen D-Dimer ABG pH POC ABG pCO2 POC ABG pO2 ABG pO2 ABG HCO3 ABG Base Excess ABG Hemoglobin ABG Oxyhemoglobin ABG Sodium ABG Potassium ABG Chloride ABG Glucose VBG pH Oxyhemoglobin Carboxyhemoglobin Sodium Potassium Chloride Carbon Dioxide BUN Creatinine Glucose POC Glucose Random Insulin C-Peptide Lactic Acid Calcium Ionized Calcium Phosphorus Magnesium AST ALT Alkaline Phosphatase Lactate Dehydrogenase NT-Pro-B Natriuret Pep Total Protein Albumin Arterial Blood Glucose Arterial Blood Ionized Calcium Urine WBC (Auto) Vancomycin Trough 34.5 H Phenytoin Crossmatch 10/21/20 10/22/20 10/23/20 13:54 07:26 05:34 WBC 18.7 H 13.0 H RBC 3.64 L 3.50 L Hgb Hct 30.0 L MCV MCH MCHC 35 H RDW 17.7 H 17.6 H Plt Count 502 H 503 H Lymph % (Auto) [place] % (Auto) Lymph # (Auto) [place] # (Auto) Baso # (Auto) Seg Neutrophils % Seg Neuts % (Manual) Lymphocytes % (Manual) Monocytes % (Manual) Nucleated RBC % Seg Neutrophils # Seg Neutrophils # Man Lymphocytes # (Manual) Monocytes # (Manual) PT INR APTT Fibrinogen D-Dimer ABG pH POC ABG pCO2 POC ABG pO2 ABG pO2 ABG HCO3 ABG Base Excess ABG Hemoglobin ABG Oxyhemoglobin ABG Sodium ABG Potassium ABG Chloride ABG Glucose VBG pH Oxyhemoglobin Carboxyhemoglobin Sodium 136 L Potassium Chloride Carbon Dioxide BUN Creatinine Glucose 120 H POC Glucose Random Insulin C-Peptide Lactic Acid Calcium Ionized Calcium Phosphorus Magnesium AST ALT Alkaline Phosphatase Lactate Dehydrogenase NT-Pro-B Natriuret Pep Total Protein Albumin Arterial Blood Glucose Arterial Blood Ionized Calcium Urine WBC (Auto) Vancomycin Trough Phenytoin Crossmatch 10/23/20 10/26/20 10/27/20 05:34 10:30 07:53 WBC 13.6 H RBC 3.38 L Hgb 10.0 L Hct 28.8 L MCV MCH MCHC 35 H RDW 17.6 H Plt Count Lymph % (Auto) [place] % (Auto) Lymph # (Auto) [place] # (Auto) Baso # (Auto) Seg Neutrophils % Seg Neuts % (Manual) Lymphocytes % (Manual) Monocytes % (Manual) Nucleated RBC % Seg Neutrophils # Seg Neutrophils # Man Lymphocytes # (Manual) Monocytes # (Manual) PT INR APTT Fibrinogen D-Dimer ABG pH 7.459 H POC ABG pCO2 POC ABG pO2 ABG pO2 112.2 H ABG HCO3 ABG Base Excess ABG Hemoglobin ABG Oxyhemoglobin ABG Sodium ABG Potassium ABG Chloride ABG Glucose VBG pH Oxyhemoglobin Carboxyhemoglobin Sodium 135 L Potassium Chloride Carbon Dioxide BUN Creatinine Glucose 105 H POC Glucose Random Insulin C-Peptide Lactic Acid Calcium Ionized Calcium Phosphorus Magnesium AST ALT Alkaline Phosphatase Lactate Dehydrogenase NT-Pro-B Natriuret Pep Total Protein Albumin Arterial Blood Glucose Arterial Blood Ionized Calcium Urine WBC (Auto) Vancomycin Trough Phenytoin Crossmatch 10/27/20 10/27/20 10/28/20 07:53 11:31 05:19 WBC RBC Hgb Hct MCV MCH MCHC RDW Plt Count Lymph % (Auto) [place] % (Auto) Lymph # (Auto) [place] # (Auto) Baso # (Auto) Seg Neutrophils % Seg Neuts % (Manual) Lymphocytes % (Manual) Monocytes % (Manual) Nucleated RBC % Seg Neutrophils # Seg Neutrophils # Man Lymphocytes # (Manual) Monocytes # (Manual) PT INR APTT Fibrinogen D-Dimer ABG pH POC ABG pCO2 POC ABG pO2 ABG pO2 ABG HCO3 ABG Base Excess ABG Hemoglobin ABG Oxyhemoglobin ABG Sodium ABG Potassium ABG Chloride ABG Glucose VBG pH Oxyhemoglobin Carboxyhemoglobin Sodium Potassium Chloride Carbon Dioxide BUN 20 H Creatinine Glucose 112 H POC Glucose 113 H 112 H Random Insulin C-Peptide Lactic Acid Calcium Ionized Calcium Phosphorus Magnesium AST 83 H ALT Alkaline Phosphatase Lactate Dehydrogenase NT-Pro-B Natriuret Pep Total Protein Albumin 3.8 L Arterial Blood Glucose Arterial Blood Ionized Calcium Urine WBC (Auto) Vancomycin Trough Phenytoin Crossmatch 10/29/20 10/29/20 10/29/20 07:56 07:56 11:37 WBC 13.6 H RBC Hgb Hct MCV MCH MCHC RDW 17.0 H Plt Count Lymph % (Auto) [place] % (Auto) Lymph # (Auto) [place] # (Auto) Baso # (Auto) Seg Neutrophils % Seg Neuts % (Manual) 80.0 H Lymphocytes % (Manual) Monocytes % (Manual) Nucleated RBC % Seg Neutrophils # Seg Neutrophils # Man 10.9 H Lymphocytes # (Manual) Monocytes # (Manual) PT INR APTT Fibrinogen D-Dimer ABG pH POC ABG pCO2 POC ABG pO2 ABG pO2 ABG HCO3 ABG Base Excess ABG Hemoglobin ABG Oxyhemoglobin ABG Sodium ABG Potassium ABG Chloride ABG Glucose VBG pH Oxyhemoglobin Carboxyhemoglobin Sodium Potassium Chloride Carbon Dioxide BUN Creatinine Glucose POC Glucose 108 H Random Insulin C-Peptide Lactic Acid Calcium Ionized Calcium Phosphorus 4.70 H Magnesium AST ALT Alkaline Phosphatase Lactate Dehydrogenase NT-Pro-B Natriuret Pep Total Protein Albumin Arterial Blood Glucose Arterial Blood Ionized Calcium Urine WBC (Auto) Vancomycin Trough Phenytoin Crossmatch 10/29/20 10/30/20 10/30/20 13:32 12:11 17:19 WBC RBC Hgb Hct MCV MCH MCHC RDW Plt Count Lymph % (Auto) [place] % (Auto) Lymph # (Auto) [place] # (Auto) Baso # (Auto) Seg Neutrophils % Seg Neuts % (Manual) Lymphocytes % (Manual) Monocytes % (Manual) Nucleated RBC % Seg Neutrophils # Seg Neutrophils # Man Lymphocytes # (Manual) Monocytes # (Manual) PT INR APTT Fibrinogen D-Dimer ABG pH POC ABG pCO2 POC ABG pO2 ABG pO2 ABG HCO3 ABG Base Excess ABG Hemoglobin ABG Oxyhemoglobin ABG Sodium ABG Potassium ABG Chloride ABG Glucose VBG pH Oxyhemoglobin Carboxyhemoglobin Sodium Potassium Chloride Carbon Dioxide BUN Creatinine Glucose POC Glucose 108 H 106 H 107 H Random Insulin C-Peptide Lactic Acid Calcium Ionized Calcium Phosphorus Magnesium AST ALT Alkaline Phosphatase Lactate Dehydrogenase NT-Pro-B Natriuret Pep Total Protein Albumin Arterial Blood Glucose Arterial Blood Ionized Calcium Urine WBC (Auto) Vancomycin Trough Phenytoin Crossmatch 10/31/20 10/31/20 11/01/20 03:20 05:43 04:55 WBC RBC Hgb Hct MCV MCH MCHC RDW Plt Count Lymph % (Auto) [place] % (Auto) Lymph # (Auto) [place] # (Auto) Baso # (Auto) Seg Neutrophils % Seg Neuts % (Manual) Lymphocytes % (Manual) Monocytes % (Manual) Nucleated RBC % Seg Neutrophils # Seg Neutrophils # Man Lymphocytes # (Manual) Monocytes # (Manual) PT INR APTT Fibrinogen D-Dimer ABG pH POC ABG pCO2 POC ABG pO2 ABG pO2 ABG HCO3 ABG Base Excess ABG Hemoglobin ABG Oxyhemoglobin ABG Sodium ABG Potassium ABG Chloride ABG Glucose VBG pH Oxyhemoglobin Carboxyhemoglobin Sodium Potassium Chloride Carbon Dioxide BUN Creatinine Glucose POC Glucose 108 H 115 H 108 H Random Insulin C-Peptide Lactic Acid Calcium Ionized Calcium Phosphorus Magnesium AST ALT Alkaline Phosphatase Lactate Dehydrogenase NT-Pro-B Natriuret Pep Total Protein Albumin Arterial Blood Glucose Arterial Blood Ionized Calcium Urine WBC (Auto) Vancomycin Trough Phenytoin Crossmatch 11/01/20 11/01/20 11/01/20 05:01 16:47 21:36 WBC RBC Hgb Hct MCV MCH MCHC RDW Plt Count Lymph % (Auto) [place] % (Auto) Lymph # (Auto) [place] # (Auto) Baso # (Auto) Seg Neutrophils % Seg Neuts % (Manual) Lymphocytes % (Manual) Monocytes % (Manual) Nucleated RBC % Seg Neutrophils # Seg Neutrophils # Man Lymphocytes # (Manual) Monocytes # (Manual) PT INR APTT Fibrinogen D-Dimer ABG pH POC ABG pCO2 POC ABG pO2 ABG pO2 ABG HCO3 ABG Base Excess ABG Hemoglobin ABG Oxyhemoglobin ABG Sodium ABG Potassium ABG Chloride ABG Glucose VBG pH Oxyhemoglobin Carboxyhemoglobin Sodium 135 L Potassium Chloride Carbon Dioxide BUN Creatinine Glucose POC Glucose 116 H 112 H Random Insulin C-Peptide Lactic Acid Calcium Ionized Calcium Phosphorus Magnesium AST 93 H ALT Alkaline Phosphatase 132 H Lactate Dehydrogenase NT-Pro-B Natriuret Pep Total Protein Albumin 3.6 L Arterial Blood Glucose Arterial Blood Ionized Calcium Urine WBC (Auto) Vancomycin Trough Phenytoin Crossmatch 11/02/20 11/02/20 11/02/20 17:45 19:19 19:19 WBC RBC Hgb Hct MCV MCH MCHC RDW Plt Count Lymph % (Auto) [place] % (Auto) Lymph # (Auto) [place] # (Auto) Baso # (Auto) Seg Neutrophils % Seg Neuts % (Manual) Lymphocytes % (Manual) Monocytes % (Manual) Nucleated RBC % Seg Neutrophils # Seg Neutrophils # Man Lymphocytes # (Manual) Monocytes # (Manual) PT INR APTT Fibrinogen D-Dimer ABG pH POC ABG pCO2 POC ABG pO2 ABG pO2 ABG HCO3 ABG Base Excess ABG Hemoglobin ABG Oxyhemoglobin ABG Sodium ABG Potassium ABG Chloride ABG Glucose VBG pH Oxyhemoglobin Carboxyhemoglobin Sodium Potassium Chloride Carbon Dioxide BUN Creatinine Glucose POC Glucose 107 H Random Insulin 43.2 H C-Peptide 6.23 H Lactic Acid Calcium Ionized Calcium Phosphorus Magnesium AST ALT Alkaline Phosphatase Lactate Dehydrogenase NT-Pro-B Natriuret Pep Total Protein Albumin Arterial Blood Glucose Arterial Blood Ionized Calcium Urine WBC (Auto) Vancomycin Trough Phenytoin Crossmatch 11/03/20 11/04/20 11/04/20 21:49 05:00 05:00 WBC 13.8 H RBC Hgb Hct MCV MCH MCHC RDW 16.6 H Plt Count Lymph % (Auto) 11.8 L [place] % (Auto) 11.0 H Lymph # (Auto) [place] # (Auto) 1.5 H Baso # (Auto) Seg Neutrophils % 75.1 H Seg Neuts % (Manual) Lymphocytes % (Manual) Monocytes % (Manual) Nucleated RBC % Seg Neutrophils # 10.4 H Seg Neutrophils # Man Lymphocytes # (Manual) Monocytes # (Manual) PT INR APTT Fibrinogen D-Dimer ABG pH POC ABG pCO2 POC ABG pO2 ABG pO2 ABG HCO3 ABG Base Excess ABG Hemoglobin ABG Oxyhemoglobin ABG Sodium ABG Potassium ABG Chloride ABG Glucose VBG pH Oxyhemoglobin Carboxyhemoglobin Sodium Potassium Chloride Carbon Dioxide BUN Creatinine Glucose 112 H POC Glucose 109 H Random Insulin C-Peptide Lactic Acid Calcium Ionized Calcium Phosphorus Magnesium AST 90 H ALT Alkaline Phosphatase Lactate Dehydrogenase NT-Pro-B Natriuret Pep Total Protein Albumin 3.8 L Arterial Blood Glucose Arterial Blood Ionized Calcium Urine WBC (Auto) Vancomycin Trough Phenytoin Crossmatch 11/04/20 11/04/20 11/05/20 06:03 23:47 07:47 WBC RBC Hgb Hct MCV MCH MCHC RDW Plt Count Lymph % (Auto) [place] % (Auto) Lymph # (Auto) [place] # (Auto) Baso # (Auto) Seg Neutrophils % Seg Neuts % (Manual) Lymphocytes % (Manual) Monocytes % (Manual) Nucleated RBC % Seg Neutrophils # Seg Neutrophils # Man Lymphocytes # (Manual) Monocytes # (Manual) PT INR APTT Fibrinogen D-Dimer ABG pH POC ABG pCO2 POC ABG pO2 ABG pO2 ABG HCO3 ABG Base Excess ABG Hemoglobin ABG Oxyhemoglobin ABG Sodium ABG Potassium ABG Chloride ABG Glucose VBG pH Oxyhemoglobin Carboxyhemoglobin Sodium Potassium Chloride Carbon Dioxide BUN Creatinine Glucose POC Glucose 107 H 121 H 111 H Random Insulin C-Peptide Lactic Acid Calcium Ionized Calcium Phosphorus Magnesium AST ALT Alkaline Phosphatase Lactate Dehydrogenase NT-Pro-B Natriuret Pep Total Protein Albumin Arterial Blood Glucose Arterial Blood Ionized Calcium Urine WBC (Auto) Vancomycin Trough Phenytoin Crossmatch 11/05/20 11/06/20 11/06/20 23:24 17:04 23:36 WBC RBC Hgb Hct MCV MCH MCHC RDW Plt Count Lymph % (Auto) [place] % (Auto) Lymph # (Auto) [place] # (Auto) Baso # (Auto) Seg Neutrophils % Seg Neuts % (Manual) Lymphocytes % (Manual) Monocytes % (Manual) Nucleated RBC % Seg Neutrophils # Seg Neutrophils # Man Lymphocytes # (Manual) Monocytes # (Manual) PT INR APTT Fibrinogen D-Dimer ABG pH POC ABG pCO2 POC ABG pO2 ABG pO2 ABG HCO3 ABG Base Excess ABG Hemoglobin ABG Oxyhemoglobin ABG Sodium ABG Potassium ABG Chloride ABG Glucose VBG pH Oxyhemoglobin Carboxyhemoglobin Sodium Potassium Chloride Carbon Dioxide BUN Creatinine Glucose POC Glucose 111 H 112 H 108 H Random Insulin C-Peptide Lactic Acid Calcium Ionized Calcium Phosphorus Magnesium AST ALT Alkaline Phosphatase Lactate Dehydrogenase NT-Pro-B Natriuret Pep Total Protein Albumin Arterial Blood Glucose Arterial Blood Ionized Calcium Urine WBC (Auto) Vancomycin Trough Phenytoin Crossmatch 11/07/20 11/07/20 11/07/20 03:33 04:44 04:44 WBC RBC Hgb Hct MCV MCH MCHC RDW 16.6 H Plt Count Lymph % (Auto) [place] % (Auto) 13.1 H Lymph # (Auto) [place] # (Auto) 1.3 H Baso # (Auto) Seg Neutrophils % Seg Neuts % (Manual) Lymphocytes % (Manual) Monocytes % (Manual) Nucleated RBC % Seg Neutrophils # Seg Neutrophils # Man Lymphocytes # (Manual) Monocytes # (Manual) PT INR APTT Fibrinogen D-Dimer ABG pH POC ABG pCO2 POC ABG pO2 ABG pO2 ABG HCO3 ABG Base Excess ABG Hemoglobin ABG Oxyhemoglobin ABG Sodium ABG Potassium ABG Chloride ABG Glucose VBG pH Oxyhemoglobin Carboxyhemoglobin Sodium Potassium Chloride Carbon Dioxide BUN Creatinine Glucose 103 H POC Glucose 109 H Random Insulin C-Peptide Lactic Acid Calcium Ionized Calcium Phosphorus 5.30 H Magnesium AST ALT Alkaline Phosphatase Lactate Dehydrogenase NT-Pro-B Natriuret Pep Total Protein Albumin Arterial Blood Glucose Arterial Blood Ionized Calcium Urine WBC (Auto) Vancomycin Trough Phenytoin Crossmatch 11/07/20 11/07/20 11/08/20 15:58 23:46 07:30 WBC RBC Hgb Hct MCV MCH MCHC RDW Plt Count Lymph % (Auto) [place] % (Auto) Lymph # (Auto) [place] # (Auto) Baso # (Auto) Seg Neutrophils % Seg Neuts % (Manual) Lymphocytes % (Manual) Monocytes % (Manual) Nucleated RBC % Seg Neutrophils # Seg Neutrophils # Man Lymphocytes # (Manual) Monocytes # (Manual) PT INR APTT Fibrinogen D-Dimer ABG pH POC ABG pCO2 POC ABG pO2 ABG pO2 ABG HCO3 ABG Base Excess ABG Hemoglobin ABG Oxyhemoglobin ABG Sodium ABG Potassium ABG Chloride ABG Glucose VBG pH Oxyhemoglobin Carboxyhemoglobin Sodium Potassium Chloride Carbon Dioxide BUN Creatinine Glucose POC Glucose 108 H 106 H 109 H Random Insulin C-Peptide Lactic Acid Calcium Ionized Calcium Phosphorus Magnesium AST ALT Alkaline Phosphatase Lactate Dehydrogenase NT-Pro-B Natriuret Pep Total Protein Albumin Arterial Blood Glucose Arterial Blood Ionized Calcium Urine WBC (Auto) Vancomycin Trough Phenytoin Crossmatch 11/08/20 11/08/20 11/09/20 11:48 23:32 17:10 WBC RBC Hgb Hct MCV MCH MCHC RDW Plt Count Lymph % (Auto) [place] % (Auto) Lymph # (Auto) [place] # (Auto) Baso # (Auto) Seg Neutrophils % Seg Neuts % (Manual) Lymphocytes % (Manual) Monocytes % (Manual) Nucleated RBC % Seg Neutrophils # Seg Neutrophils # Man Lymphocytes # (Manual) Monocytes # (Manual) PT INR APTT Fibrinogen D-Dimer ABG pH POC ABG pCO2 POC ABG pO2 ABG pO2 ABG HCO3 ABG Base Excess ABG Hemoglobin ABG Oxyhemoglobin ABG Sodium ABG Potassium ABG Chloride ABG Glucose VBG pH Oxyhemoglobin Carboxyhemoglobin Sodium Potassium Chloride Carbon Dioxide BUN Creatinine Glucose POC Glucose 110 H 116 H 112 H Random Insulin C-Peptide Lactic Acid Calcium Ionized Calcium Phosphorus Magnesium AST ALT Alkaline Phosphatase Lactate Dehydrogenase NT-Pro-B Natriuret Pep Total Protein Albumin Arterial Blood Glucose Arterial Blood Ionized Calcium Urine WBC (Auto) Vancomycin Trough Phenytoin Crossmatch 01/11/10/20 11/10/20 21:42 05:49 07:17 WBC RBC Hgb Hct MCV MCH MCHC RDW Plt Count Lymph % (Auto) [place] % (Auto) Lymph # (Auto) [place] # (Auto) Baso # (Auto) Seg Neutrophils % Seg Neuts % (Manual) Lymphocytes % (Manual) Monocytes % (Manual) Nucleated RBC % Seg Neutrophils # Seg Neutrophils # Man Lymphocytes # (Manual) Monocytes # (Manual) PT INR APTT Fibrinogen D-Dimer ABG pH POC ABG pCO2 POC ABG pO2 ABG pO2 ABG HCO3 ABG Base Excess ABG Hemoglobin ABG Oxyhemoglobin ABG Sodium ABG Potassium ABG Chloride ABG Glucose VBG pH Oxyhemoglobin Carboxyhemoglobin Sodium Potassium Chloride Carbon Dioxide BUN Creatinine Glucose POC Glucose 110 H 108 H 111 H Random Insulin C-Peptide Lactic Acid Calcium Ionized Calcium Phosphorus Magnesium AST ALT Alkaline Phosphatase Lactate Dehydrogenase NT-Pro-B Natriuret Pep Total Protein Albumin Arterial Blood Glucose Arterial Blood Ionized Calcium Urine WBC (Auto) Vancomycin Trough Phenytoin Crossmatch 11/10/20 11/11/20 11/11/20 20:36 04:58 11:56 WBC RBC Hgb Hct MCV MCH MCHC RDW Plt Count Lymph % (Auto) [place] % (Auto) Lymph # (Auto) [place] # (Auto) Baso # (Auto) Seg Neutrophils % Seg Neuts % (Manual) Lymphocytes % (Manual) Monocytes % (Manual) Nucleated RBC % Seg Neutrophils # Seg Neutrophils # Man Lymphocytes # (Manual) Monocytes # (Manual) PT INR APTT Fibrinogen D-Dimer ABG pH POC ABG pCO2 POC ABG pO2 ABG pO2 ABG HCO3 ABG Base Excess ABG Hemoglobin ABG Oxyhemoglobin ABG Sodium ABG Potassium ABG Chloride ABG Glucose VBG pH Oxyhemoglobin Carboxyhemoglobin Sodium Potassium Chloride Carbon Dioxide BUN Creatinine Glucose POC Glucose 111 H 109 H 109 H Random Insulin C-Peptide Lactic Acid Calcium Ionized Calcium Phosphorus Magnesium AST ALT Alkaline Phosphatase Lactate Dehydrogenase NT-Pro-B Natriuret Pep Total Protein Albumin Arterial Blood Glucose Arterial Blood Ionized Calcium Urine WBC (Auto) Vancomycin Trough Phenytoin Crossmatch 11/11/20 11/11/20 11/11/20 13:50 13:50 15:50 WBC RBC Hgb Hct MCV MCH MCHC RDW Plt Count Lymph % (Auto) [place] % (Auto) Lymph # (Auto) [place] # (Auto) Baso # (Auto) Seg Neutrophils % Seg Neuts % (Manual) Lymphocytes % (Manual) Monocytes % (Manual) Nucleated RBC % Seg Neutrophils # Seg Neutrophils # Man Lymphocytes # (Manual) Monocytes # (Manual) PT INR APTT Fibrinogen D-Dimer 1974.47 H ABG pH POC ABG pCO2 POC ABG pO2 ABG pO2 ABG HCO3 ABG Base Excess ABG Hemoglobin ABG Oxyhemoglobin ABG Sodium ABG Potassium ABG Chloride ABG Glucose VBG pH Oxyhemoglobin Carboxyhemoglobin Sodium Potassium Chloride Carbon Dioxide BUN Creatinine Glucose POC Glucose 107 H Random Insulin C-Peptide Lactic Acid Calcium Ionized Calcium Phosphorus Magnesium AST ALT Alkaline Phosphatase Lactate Dehydrogenase NT-Pro-B Natriuret Pep Total Protein Albumin Arterial Blood Glucose Arterial Blood Ionized Calcium Urine WBC (Auto) > 182.0 H Vancomycin Trough Phenytoin Crossmatch 11/11/20 11/12/20 11/12/20 23:17 11:33 22:20 WBC RBC Hgb Hct MCV MCH MCHC RDW Plt Count Lymph % (Auto) [place] % (Auto) Lymph # (Auto) [place] # (Auto) Baso # (Auto) Seg Neutrophils % Seg Neuts % (Manual) Lymphocytes % (Manual) Monocytes % (Manual) Nucleated RBC % Seg Neutrophils # Seg Neutrophils # Man Lymphocytes # (Manual) Monocytes # (Manual) PT INR APTT Fibrinogen D-Dimer ABG pH POC ABG pCO2 POC ABG pO2 ABG pO2 ABG HCO3 ABG Base Excess ABG Hemoglobin ABG Oxyhemoglobin ABG Sodium ABG Potassium ABG Chloride ABG Glucose VBG pH Oxyhemoglobin Carboxyhemoglobin Sodium Potassium Chloride Carbon Dioxide BUN Creatinine Glucose POC Glucose 119 H 111 H 107 H Random Insulin C-Peptide Lactic Acid Calcium Ionized Calcium Phosphorus Magnesium AST ALT Alkaline Phosphatase Lactate Dehydrogenase NT-Pro-B Natriuret Pep Total Protein Albumin Arterial Blood Glucose Arterial Blood Ionized Calcium Urine WBC (Auto) Vancomycin Trough Phenytoin Crossmatch 11/13/20 11/13/20 11/13/20 01:52 07:33 10:05 WBC RBC Hgb Hct MCV MCH MCHC RDW Plt Count Lymph % (Auto) [place] % (Auto) Lymph # (Auto) [place] # (Auto) Baso # (Auto) Seg Neutrophils % Seg Neuts % (Manual) Lymphocytes % (Manual) Monocytes % (Manual) Nucleated RBC % Seg Neutrophils # Seg Neutrophils # Man Lymphocytes # (Manual) Monocytes # (Manual) PT INR APTT Fibrinogen D-Dimer ABG pH POC ABG pCO2 POC ABG pO2 ABG pO2 ABG HCO3 ABG Base Excess ABG Hemoglobin ABG Oxyhemoglobin ABG Sodium ABG Potassium ABG Chloride ABG Glucose VBG pH Oxyhemoglobin Carboxyhemoglobin Sodium Potassium Chloride Carbon Dioxide BUN Creatinine Glucose 114 H POC Glucose 124 H 106 H Random Insulin C-Peptide Lactic Acid Calcium Ionized Calcium Phosphorus 4.60 H Magnesium AST ALT Alkaline Phosphatase Lactate Dehydrogenase NT-Pro-B Natriuret Pep Total Protein Albumin Arterial Blood Glucose Arterial Blood Ionized Calcium Urine WBC (Auto) Vancomycin Trough Phenytoin Crossmatch 11/13/20 11/13/20 11/14/20 11:50 17:20 05:26 WBC RBC Hgb Hct MCV MCH MCHC RDW Plt Count Lymph % (Auto) [place] % (Auto) Lymph # (Auto) [place] # (Auto) Baso # (Auto) Seg Neutrophils % Seg Neuts % (Manual) Lymphocytes % (Manual) Monocytes % (Manual) Nucleated RBC % Seg Neutrophils # Seg Neutrophils # Man Lymphocytes # (Manual) Monocytes # (Manual) PT INR APTT Fibrinogen D-Dimer ABG pH POC ABG pCO2 POC ABG pO2 ABG pO2 ABG HCO3 ABG Base Excess ABG Hemoglobin ABG Oxyhemoglobin ABG Sodium ABG Potassium ABG Chloride ABG Glucose VBG pH Oxyhemoglobin Carboxyhemoglobin Sodium Potassium Chloride Carbon Dioxide BUN Creatinine Glucose POC Glucose 113 H 110 H 110 H Random Insulin C-Peptide Lactic Acid Calcium Ionized Calcium Phosphorus Magnesium AST ALT Alkaline Phosphatase Lactate Dehydrogenase NT-Pro-B Natriuret Pep Total Protein Albumin Arterial Blood Glucose Arterial Blood Ionized Calcium Urine WBC (Auto) Vancomycin Trough Phenytoin Crossmatch 11/14/20 11/15/20 11/15/20 23:23 05:07 11:48 WBC RBC Hgb Hct MCV MCH MCHC RDW Plt Count Lymph % (Auto) [place] % (Auto) Lymph # (Auto) [place] # (Auto) Baso # (Auto) Seg Neutrophils % Seg Neuts % (Manual) Lymphocytes % (Manual) Monocytes % (Manual) Nucleated RBC % Seg Neutrophils # Seg Neutrophils # Man Lymphocytes # (Manual) Monocytes # (Manual) PT INR APTT Fibrinogen D-Dimer ABG pH POC ABG pCO2 POC ABG pO2 ABG pO2 ABG HCO3 ABG Base Excess ABG Hemoglobin ABG Oxyhemoglobin ABG Sodium ABG Potassium ABG Chloride ABG Glucose VBG pH Oxyhemoglobin Carboxyhemoglobin Sodium Potassium Chloride Carbon Dioxide BUN Creatinine Glucose POC Glucose 112 H 115 H 114 H Random Insulin C-Peptide Lactic Acid Calcium Ionized Calcium Phosphorus Magnesium AST ALT Alkaline Phosphatase Lactate Dehydrogenase NT-Pro-B Natriuret Pep Total Protein Albumin Arterial Blood Glucose Arterial Blood Ionized Calcium Urine WBC (Auto) Vancomycin Trough Phenytoin Crossmatch 11/16/20 11/17/20 11/18/20 05:06 00:17 05:04 WBC RBC Hgb Hct MCV MCH MCHC RDW Plt Count Lymph % (Auto) [place] % (Auto) Lymph # (Auto) [place] # (Auto) Baso # (Auto) Seg Neutrophils % Seg Neuts % (Manual) Lymphocytes % (Manual) Monocytes % (Manual) Nucleated RBC % Seg Neutrophils # Seg Neutrophils # Man Lymphocytes # (Manual) Monocytes # (Manual) PT INR APTT Fibrinogen D-Dimer ABG pH POC ABG pCO2 POC ABG pO2 ABG pO2 ABG HCO3 ABG Base Excess ABG Hemoglobin ABG Oxyhemoglobin ABG Sodium ABG Potassium ABG Chloride ABG Glucose VBG pH Oxyhemoglobin Carboxyhemoglobin Sodium Potassium Chloride Carbon Dioxide BUN Creatinine Glucose POC Glucose 110 H 115 H 111 H Random Insulin C-Peptide Lactic Acid Calcium Ionized Calcium Phosphorus Magnesium AST ALT Alkaline Phosphatase Lactate Dehydrogenase NT-Pro-B Natriuret Pep Total Protein Albumin Arterial Blood Glucose Arterial Blood Ionized Calcium Urine WBC (Auto) Vancomycin Trough Phenytoin Crossmatch
--- NOTE | 2020-11-18 16:06 | Progress Note ---
Assessment and Plan A: POD#47 s/p repeat section at 36 wks secondary to Eclampsia and Cardiac Arrest with Resuscitation POD#47 s/p supracervical abdominal hysterectomy secondary to Uterine Atony, Hemorrhage and Disseminated Intravascular Coagulation (DIC) s/p multiple transfusions of blood products POD #28 s/p Percutaneous Tracheostomy, Fiberoptic Bronchoscopy, PEG tube placement Right Upper Extremity superficial and deep vein thrombosis on Lovenox Hypoglycemia Herpetic outbreak -Status post cardiac arrest 10/07/2020 requiring reintubation. -Shock, DIC: Secondary to hemorrhage-stable -Sepsis: followed by ID, abx/imaging recommendations noted -Acute kidney injury: resolved, labs stable -Acute respiratory failure: off vent presently -Preeclampsia: s/p Magnesium P: Awaiting jail placement - Patient Problems (1) Encephalopathy Current Visit: Yes Status: Acute (2) Hypoglycemia Current Visit: Yes Status: Acute Plan to address problem: Persistent-unclear etilogy, management per hospitalist team, now with continuous D10 W infusion CT abdomen negative for pancreatic tumor (3) Hematoma Current Visit: Yes Status: Acute Plan to address problem: supracervical location per CT abdomen/pelvis -findings consistent with postsurgical changes -dimensions not documented, unable to drain per report -last hct stable, will repeat in AM Subjective - Subjective Principal diagnosis: Eclampsia/HELLP Syndrome, ADOLPH, DIC; s/p , s/p supracervical hyst Interval history: 30y/o POD #47 s/p supracervical hysterectomy for eclampsia and DIC. Patient remains unresponsive to commands. Spontaneous, but no purposeful movement documented. Tracheostomy and PEG tube in place. Currently awaiting placement for [facility] long term care care facility Objective - Vital Signs Latest vital signs: Vital Signs Temp Pulse Pulse Resp BP Pulse Ox Pulse Ox 11/18/20 12:43 98 11/18/20 12:00 99.0 F 11/18/20 11:03 102 H 11/18/20 08:33 99 99 11/18/20 08:00 99.4 F 11/18/20 06:30 92 H 17 117/68 98 11/18/20 06:12 71 115/73 11/18/20 06:00 83 24 115/73 97 11/18/20 05:30 79 20 113/72 97 11/18/20 05:20 100 11/18/20 05:00 84 19 133/82 98 11/18/20 04:30 99 H 26 H 134/69 98 11/18/20 04:00 99.2 F 96 H 98 H 22 131/87 99 11/18/20 03:30 82 12 129/77 98 11/18/20 03:00 97 H 17 129/87 98 11/18/20 02:31 99 H 20 115/88 98 11/18/20 02:00 97 H 24 115/84 99 11/18/20 01:31 101 H 19 120/81 98 11/18/20 01:00 100 H 13 121/79 98 11/18/20 00:30 94 H 16 116/68 98 11/18/20 00:00 99.0 F 95 H 86 20 126/72 99 11/17/20 23:45 95 H 21 115/72 99 11/17/20 23:30 90 16 115/72 98 11/17/20 23:00 100 H 17 108/67 99 11/17/20 22:30 101 H 16 110/67 99 11/17/20 22:00 103 H 20 106/76 98 11/17/20 21:30 82 18 117/68 98 11/17/20 21:20 92 H 120/70 11/17/20 21:00 97 H 20 120/70 99 11/17/20 20:30 84 20 120/74 99 11/17/20 20:23 99 11/17/20 20:00 98.6 F 96 H 95 H 22 126/88 99 11/17/20 19:58 94 H 121/81 11/17/20 19:31 96 H 17 121/81 99 11/17/20 19:01 98 H 19 125/73 99 11/17/20 18:30 99 H 23 127/67 98 11/17/20 18:00 96 H 17 125/76 98 11/17/20 17:30 88 21 128/79 97 11/17/20 17:00 92 H 17 131/76 98 11/17/20 16:30 89 22 126/70 98 Intake and Output 11/18/20 11/18/20 11/18/20 06:59 14:59 22:59 Intake Total 1545 Output Total 500 Balance 1045 Intake: IV 865 D10w 1,000 ml @ 75 mls/hr 865 IV DIRECT ERINN Rx#: [id number] Intake, Free Water 200 Tube Feeding 480 Output: Urine 500 Void 500 Other: Total, Intake Amount 60 Total, Output Amount 500 Voiding Method External Female Catheter # Bowel Movements 1 - Exam Narrative Exam: Breasts: Present: deferred Abdomen: Present: soft (obese ) Extremities: Present: edema - Labs Labs: Abnormal lab results 11/18/20 Range/Units 05:04 POC Glucose 111 H (70-105) mg/dL
--- NOTE | 2020-11-18 17:11 | Progress Note ---
Assessment and Plan Assessment and plan: Assessment and plan: 30 y/o female patient with Eclampsia/help syndrome, s/p emergent section with DIC, hemorrhage, supracervical abdominal hysterectomy, acute respiratory failure , tracheostomy on T-piece with morbid obesity, s/p cardiac arrest 12/08/2019 status post CPR per ACLS, acute hypoxic brain injury Acute kidney injury improved, severe shock requiring pressors, DIC septic shock improved, history of C. difficile colitis completed treatment with vancomycin. Tracheostomy on T-piece, continues to require 5 L of oxygen. Herpetic flareup, ID started treatment with antibiotics Assessment and plan: --Persistent hypoglycemia; patient is requiring continuous D10 W infusion CT abdomen done to rule out insulinoma, CT abdomen report negative for pancreatic tumor We will closely monitor --Cardiac arrest; 10/07/2020 ,status post CPR --Acute hypoxic brain injury; Supportive care, closely monitor --Acute hypoxic respiratory failure: Tracheostomy on T-piece , today on 4.5 L oxygen, saturating 100% Supportive care, Pulmonary critical following COVID-19 negative C. difficile positive; Patient on contact isolation Completed treatment --Afebrile: Blood, urine, tracheal aspirate cultures New cultures negative to date Monitor off antibiotics Closely monitor --Sepsis; received antibiotics Continue to monitor off antibiotics ID following --COVID-19 test negative; 10/08/2020 --C. difficile colitis test; positive; 10/16/2020 --Acute metabolic encephalopathy --Acute kidney injury; vasomotor nephropathy Resolved, renal function within normal limits, closely monitor --Shock; monitor of pressors Blood pressures reasonable level --DIC; sepsis, septic shock, resolved --History of preeclampsia; / hemorrhage Status post hysterectomy --History of C. difficile colitis; completed oral vancomycin --DVT/SVT and right upper extremity Very poor prognosis, Consults recommendations noted and appreciated We will closely monitor the patient and adjust management as needed Plan of care reviewed with the patient's nurse. Brief history; 30 year old -Vincentian female CHE 10/25/20 at 36w5d who presents with seizures in triage on 10/02/20. Pt was not able to provide history but per pt's , she presented to the hospital to return a 24 hour urine specimen for analysis. She then suddenly reported that she did not feel good. She was taken to labor and delivery and shortly after arrival, she began seizing. During this time, a code met was called because the patient became hypoxic. She was then noted to be without a pulse. Chest compressions were started immediately, and the patient was emergently taken to the operating room for delivery of the fetus. Off note, This patient has had care at [facility] with comanagement by [facility] since 11 wks complicated by ADHD, morbid obesity, generalized anxiety disorder, panic attacks, chronic narcotic use, fibromyalgia, GERD, Irritable Bowel Syndrome, Migraines, h/o endometrial ablation and ovarian vein embolization, genital herpes, insomnia, LGA fetus, nausea and vomiting, p olyhydramnios, quad screen positive for Down's Syndrome, and previous x 3. She is GBS negative. , Patient tracheostomy on ventilatory support, unable to wean, continue supportive care poor prognosis 11:30: Pt brought to L&D triage for evaluation of possible labor. Pt accompanied by her spouse. Pt spouse poor historian; unable to obtain history- allergies at this time. Pt taken from registration to triage area via WC. Pt unresponsive, actively seizing with snorous respirations. corporate treasury analyst, Kassy, called and requesting assistance. 11:35: Multiple staff at bedside. Pt 02 sat 67% on nonrebreather, unable to read BP . Yifan Theodore CRNA, at bedside for intubation and assistance with IV i nsertion. INT attempt by multiple RNs unsuccessful at this time. 11:42: Pt being bagged by KORIN, 02% 79%. No pulse palpated, compressions on at this time; bharati young called and Dr. Newberry preparing OR for emergent c/s. 11:44: Continued compressions on stretcher while transporting pt to OR 1. Pt b eing bagged with jaw thrust manuever in place by KORIN Stringer student. 11:45: Arrival to OR 1. Dr. Newberry and Dr. Portillo present for emergent c/s. Code team arrived for continued care. patient revived and c/s done Patient has been bleeding from C/s site followed by supracervical hysterectomy for severe bleeding, Patient transfused multiple units of PRBC, Patient in DIC. Patient transferred to the ICU Hospital course; 10/03. Patient seen and examined at bedside this morning. Patient is nonresp onsive and mechanically ventilated. On pressors. Labs reviewed-has leukocytosis, anemia, thrombocytopenia, ADOLPH and lactic acidosis. Started on IV antibiotics to cover possible sepsis secondary to DIC. Hematology oncology recommendations appreciated-needs additional cryoprecipitate and FFP. Monitor D-dimer, fibrinogen and frequent labs. Nephrology consulted for lactic acidosis and ADOLPH. 10/04. Remains mechanically ventilated. [place] antibiotics. Labs shows improved acidosis - lactic acid 3.5. Hb drop noted. Getting transfused 2 units PRBCs. Platelet count is ~40k. Continue to monitor labs closely. Critical care team on board. 10/05; xray reviewed, concerning for multifocal infilrate, likely underlying Pneumonia, will add ID consult to assist with management of this critically ill patient, start tube feed, closely monitor renal system 10/06: Resumed care, remains on mechanical ventilation. No active bleeding, H&H stable. Continue to monitor CBC and BMP. Continue IV antibiotic for underlying pneumonia. Follow critical care and ID recommendation. 10/07: Remains on mechanical ventilation. No active bleeding, H&H stable. Critical care following, wean off ventilation as tolerated. 10/08: Patient had another cardiac arrest last night. Remains on mechanical ventilation, update family. Continue supportive care -poor prognosis 10/09: Called patient mother and discussed about patient care and management. Answered all question to best of my knowledge and family satisfaction. Patient remains on mechanical ventilation, cardiac arrest x2 so far. Critically sick, poor prognosis 10/10: remains on mechanical ventilation. h/h stable, no active bleeding. monitor CBC/BMP 10/11: WBC trended up with diarrhea, started on vancomycin po. remains on MV, off pressor, tolerating TF 10/12: remains on MV, off pressor, tolerating TF. called family for update but unable to reach, could not leave message as it was full. cont supportive care, wean off vent as tolerated. 10/13/2020; patient is on mechanical ventilation, tolerating tube feeding. Patient has labored breathing. Neuro was consulted and recommend MRI. Patient is on Precedex. Rectal tube in place. 10/14/2020; patient is on mechanical ventilation, Precedex. Patient had fever and blood culture ordered. Patient is on IV vancomycin per ID recommendation. Neuro consulted and recommend MRI. Continue to monitor. Prognosis is guarded. 10/15/2020; patient is on mechanical ventilation, Precedex. Patient had fever and blood culture ordered. Patient is on IV vancomycin per ID recommendation. Neuro consulted and recommend MRI. Continue to monitor. Prognosis is guarded. 10/17: Remains with C.DIFF and Bactermia, Poor prognosis. No purposeful movement. MRI and EEG discussed with Intensvisit, Continue aggressive BP control. 10/18: Blood pressure better controlled MRI done 10/15 shows mild improvement in edema. We will continue to monitor mother was at bedside yesterday. Nursing documentation trach and PEG discussed with the mother including goals of care. She is still in denial about the gravity of her daughters her condition which is understandable considering her age. Continue aggressive management at this time. Await for bacteremia to clear by ID before placing PICC line. 10/19: Patient for possible PEG and Trach, ID following, repeat cultures remain negative. Poor prognosis 10/20: Pt noted to DVT and SVT in the RUE, Vascular consult and will also obtain Hematology for possible considering changing in Anticoagulation. CONTINUE TO MONITOR H/H and PLT. Family updated by Intens[employer]it. Heparin gtt started. Will check CBC and BMP 10/21: Continue supporive care, Diarrhea now resolving, But still with persistent Fever, May need repeat CT/AP per ID, still with profused Encephalopathy 10/22: Continue supportive care, weaning, awaiting repeat Imaging. FOLLOW Fever curve. Enoxparin restarted 10/23: Continue supportive care, wean as tolerated. 10/24; Started on CPAP trial, discussed with pulmonary, still with diarrhea. 10/25: Patients seen and examined, no clinical changes, still with diarrhea. ?meaningful recovery. 10/26: Clinically unchanged, continue CPAP trial, Will discuss with Neurology about re-evaluation, ?Need for repeat CT head. ?PRESS considering initial elevated BP, now stable. 10/27; tracheostomy on vent, weaning trials, vital signs noted, poor prognosis 10/28; unable to wean, tracheostomy on vent. Sepsis. Continue current management. Consults and recommendations noted and appreciated 10/30/2020;Patient on T-piece 5 L of oxygen not in acute distress, noncommunicative 11/02/2020; patient on T-piece 5 L of oxygen 11/03/2020; patient's fever slightly improved low-grade, continue current management, remains on T-piece with 5 L of oxygen 11/04/2020; T-max last 24 hours 100.3 F, new cultures negative to date, monitor off antibiotics Patient is off Levophed, blood pressures reasonable level, tracheostomy on T- piece 3 to 5 L nasal cannula oxygen 11/05/2020; tracheostomy on T-piece patient remains on 5 L of nasal cannula oxygen, unresponsive severe hypoxic brain injury I called patient's mother Ms. Pamela Bassett as well as patient's spouse Mr. Danilo Dimas at [phone] unable to reach them Left voicemail on Ms. Pamela Bassettz phone and encouraged him to call back 11/06/2020; I tried to call again today Ms. Pamela Bassett to discuss patient's condition and treatment plan and update consultants recommendations and patient's prognosis., unable to reach her 11/10/2020; family conference was held by case management yesterday 11/09/2020, family decided and agreed for SNF placement 11/11/2020; patient seen and examined, clinically no change tracheostomy on 5 L of nasal cannula oxygen, hemodynamically and clinically stable for discharge To LTAC versus SNF, DC planning per case management 11/12/2020; clinically no change, continue current management, DC planning per case management possible SNF placement 11/13/2020; patient is receiving herpes flareup treatment per ID 11/14/2020; clinically no change, awaiting SNF placement 11/15/2020; clinically no change, tracheostomy on T-piece on 5 L oxygen, awaiting placement 11/16/2020; patient awaiting placement 11/18/2020; abdominal CT scan negative for insulinoma /pancreatic tumor ,clinically no change Awaiting SNF placement The high probability of a clinically significant, sudden or life threatening deterioration of the [MULTIPLE ORGAN] system(s) required my full and direct attention, intervention and personal management. The aggregate critical care time was [31] minutes. This time is in addition to time spent performing reported procedures but includes the following: [X] Data Review and interpretation [X] Patient assessment and monitoring of vital signs [X] Documentation [X] Medication orders and management History Interval history: I have seen patient at the bedside this morning Patient is sleeping no new complaints Vital signs reviewed Awaiting placement Hospitalist Physical - Constitutional Vitals: Temp Pulse Resp BP Pulse Ox 99.4 F 88 24 131/80 99 11/18/20 16:00 11/18/20 16:00 11/18/20 16:00 11/18/20 16:00 11/18/20 16:00 General appearance: Present: no acute distress, well-nourished, obese, other (Patient is restless) - EENT Eyes: Present: PERRL, EOM intact - Neck Neck: Present: supple, normal ROM - Respiratory Respiratory effort: normal Respiratory: bilateral: diminished, negative: rales, rhonchi, wheezing - Cardiovascular Rhythm: regular Heart Sounds: Present: S1 & S2 - Extremities Extremities: no ischemia, No edema - Abdominal General gastrointestinal: soft, non-tender, non-distended, normal bowel sounds - Integumentary Integumentary: Present: clear, warm - Psychiatric Psychiatric: appropriate mood/affect, cooperative - Neurologic Neurologic: CNII-XII intact, moves all extremities HEART Score - HEART Score Age: < 45 Risk factors: 1-2 risk factors - Critical Actions Critical Actions: >7 pts:50-65% risk of adverse cardiac event. Early invasive measures Results - Labs CBC & Chem 7: 11/07/20 04:44 11/13/20 10:05 Labs: Laboratory Last Values WBC 10.2 K/mm3 (4.5-11.0) 11/07/20 04:44 RBC 3.88 M/mm3 (3.65-5.03) 11/07/20 04:44 Hgb 11.0 gm/dl (10.1-14.3) 11/07/20 04:44 Hgb Comment See scanned result 10/04/20 Unknown Hct 32.6 % (30.3-42.9) 11/07/20 04:44 MCV 84 fl (79-97) 11/07/20 04:44 MCH 28 pg (28-32) 11/07/20 04:44 MCHC 34 % (30-34) 11/07/20 04:44 RDW 16.6 % (13.2-15.2) H 11/07/20 04:44 Plt Count 259 K/mm3 (140-440) 11/07/20 04:44 Lymph % (Auto) 15.2 % (13.4-35.0) 11/07/20 04:44 [place] % (Auto) 13.1 % (0.0-7.3) H 11/07/20 04:44 Eos % (Auto) 2.5 % (0.0-4.3) 11/07/20 04:44 Baso % (Auto) 0.6 % (0.0-1.8) 11/07/20 04:44 Lymph # (Auto) 1.6 K/mm3 (1.2-5.4) 11/07/20 04:44 [place]aves # (Auto) 1.3 K/mm3 (0.0-0.8) H 11/07/20 04:44 Eos # (Auto) 0.3 K/mm3 (0.0-0.4) 11/07/20 04:44 Baso # (Auto) 0.1 K/mm3 (0.0-0.1) 11/07/20 04:44 Add Manual Diff Complete 10/29/20 07:56 Total Counted 100 10/29/20 07:56 Seg Neutrophils % 68.6 % (40.0-70.0) 11/07/20 04:44 Seg Neuts % (Manual) 80.0 % (40.0-70.0) H 10/29/20 07:56 Band Neutrophils % 2.0 % 10/15/20 05:50 Lymphocytes % (Manual) 15.0 % (13.4-35.0) 10/29/20 07:56 Reactive Lymphs % (Man) 1.0 % 10/02/20 12:18 Monocytes % (Manual) 4.0 % (0.0-7.3) 10/29/20 07:56 Eosinophils % (Manual) 1.0 % (0.0-4.3) 10/29/20 07:56 Myelocytes % 2.0 % 10/02/20 13:05 Metamyelocytes % 1.0 % 10/14/20 04:00 Nucleated RBC % Not Reportable 10/29/20 07:56 Seg Neutrophils # 7.0 K/mm3 (1.8-7.7) 11/07/20 04:44 Seg Neutrophils # Man 10.9 K/mm3 (1.8-7.7) H 10/29/20 07:56 Band Neutrophils # 0.0 K/mm3 10/29/20 07:56 Lymphocytes # (Manual) 2.0 K/mm3 (1.2-5.4) 10/29/20 07:56 Abs React Lymphs (Man) 0.0 K/mm3 10/29/20 07:56 Monocytes # (Manual) 0.5 K/mm3 (0.0-0.8) 10/29/20 07:56 Eosinophils # (Manual) 0.1 K/mm3 (0.0-0.4) 10/29/20 07:56 Basophils # (Manual) 0.0 K/mm3 (0.0-0.1) 10/29/20 07:56 Metamyelocytes # 0.0 K/mm3 10/29/20 07:56 Myelocytes # 0.0 K/mm3 10/29/20 07:56 Promyelocytes # 0.0 K/mm3 10/29/20 07:56 Blast Cells # 0.0 K/mm3 10/29/20 07:56 WBC Morphology Not Reportable 10/29/20 07:56 Hypersegmented Neuts Not Reportable 10/29/20 07:56 Hyposegmented Neuts Not Reportable 10/29/20 07:56 Hypogranular Neuts Not Reportable 10/29/20 07:56 Smudge Cells Not Reportable 10/29/20 07:56 Toxic Granulation Not Reportable 10/29/20 07:56 Toxic Vacuolation Not Reportable 10/29/20 07:56 Dohle Bodies Not Reportable 10/29/20 07:56 Pelger-Huet Anomaly Not Reportable 10/29/20 07:56 Ester Rods Not Reportable 10/29/20 07:56 Platelet Estimate Consistent w auto 10/29/20 07:56 Clumped Platelets Not Reportable 10/29/20 07:56 Plt Clumps, EDTA Not Reportable 10/29/20 07:56 Large Platelets Few 10/29/20 07:56 Giant Platelets Not Reportable 10/29/20 07:56 Platelet Satelliting Not Reportable 10/29/20 07:56 Plt Morphology Comment Not Reportable 10/29/20 07:56 RBC Morphology Not Reportable 10/29/20 07:56 Dimorphic RBCs Not Reportable 10/29/20 07:56 Polychromasia Rare 10/29/20 07:56 Hypochromasia Few 10/29/20 07:56 Poikilocytosis Not Reportable 10/29/20 07:56 Anisocytosis Not Reportable 10/29/20 07:56 Microcytosis Not Reportable 10/29/20 07:56 Macrocytosis Not Reportable 10/29/20 07:56 Spherocytes Not Reportable 10/29/20 07:56 Pappenheimer Bodies Not Reportable 10/29/20 07:56 Sickle Cells Not Reportable 10/29/20 07:56 Target Cells Few 10/29/20 07:56 Tear Drop Cells Not Reportable 10/29/20 07:56 Ovalocytes Not Reportable 10/29/20 07:56 Stomatocytes Few 10/14/20 04:00 Helmet Cells Not Reportable 10/29/20 07:56 [place] Bodies Not Reportable 10/29/20 07:56 [place] Rings Not Reportable 10/29/20 07:56 [place] Cells Not Reportable 10/29/20 07:56 Bite Cells Not Reportable 10/29/20 07:56 Crenated Cell Not Reportable 10/29/20 07:56 Elliptocytes Not Reportable 10/29/20 07:56 Acanthocytes (Spur) Not Reportable 10/29/20 07:56 Rouleaux Not Reportable 10/29/20 07:56 Hemoglobin C Crystals Not Reportable 10/29/20 07:56 Schistocytes Not Reportable 10/29/20 07:56 Malaria parasites Not Reportable 10/29/20 07:56 Sickle Cell Solubility See scanned result 10/04/20 Unknown Hemoglobin A See scanned result 10/04/20 Unknown Hemoglobin A2 See scanned result 10/04/20 Unknown Hemoglobin A2 Prime See scanned result 10/04/20 Unknown Hemoglobin C See scanned result 10/04/20 Unknown Hemoglobin D See scanned result 10/04/20 Unknown Hemoglobin E See scanned result 10/04/20 Unknown Hgb F Diffential Stain See scanned result 10/04/20 Unknown Hemoglobin F Quant See scanned result 10/04/20 Unknown Hemoglobin G See scanned result 10/04/20 Unknown Hemoglobin S See scanned result 10/04/20 Unknown Hemoglobin [place] See scanned result 10/04/20 Unknown Hemoglobin [place] See scanned result 10/04/20 Unknown Hemoglobin [place] See scanned result 10/04/20 Unknown Variant Hemoglobin See scanned result 10/04/20 Unknown Abnorm Hgb IEF Confirm See scanned result 10/04/20 Unknown Hemoglobin Interpret See scanned result 10/04/20 Unknown Hemoglobinopathy Note See scanned result 10/04/20 Unknown Sharad Bodies Not Reportable 10/29/20 07:56 Hem Pathologist Commnt No 10/29/20 07:56 PT 13.6 Sec. (12.2-14.9) 10/21/20 13:54 INR 1.06 (0.87-1.13) 10/21/20 13:54 APTT 31.6 Sec. (24.2-36.6) 10/03/20 00:40 Fibrinogen 336 mg/dl (211-480) 10/04/20 10:00 D-Dimer 1974.47 ng/mlDDU (0-234) H 11/11/20 13:50 ABG pH 7.459 pH Units (7.350-7.450) H 10/26/20 10:30 POC ABG pCO2 20.7 mmHg (32.0-48.0) L 10/13/20 07:18 ABG pCO2 32.4 mm Hg 10/26/20 10:30 POC ABG pO2 137.9 mmHg (83-108) H 10/13/20 07:18 ABG pO2 112.2 mm Hg (80.0-90.0) H 10/26/20 10:30 POC ABG HCO3 14.8 10/13/20 07:18 ABG HCO3 22.5 mmol/L (20.0-26.0) 10/26/20 10:30 ABG O2 Saturation 98.2 % (95.0-99.0) 10/26/20 10:30 ABG O2 Content 18.5 (0.0-44) 10/26/20 10:30 POC ABG Base Excess -6.9 10/13/20 07:18 ABG Base Excess -0.6 mmol/L (-2.0-3.0) 10/26/20 10:30 ABG Hemoglobin 13.5 gm/dl (12.0-16.0) 10/26/20 10:30 ABG Oxyhemoglobin 98.3 (94-98) H 10/13/20 07:18 ABG Carboxyhemoglobin 1.3 % (0.0-5.0) 10/26/20 10:30 ABG Methemoglobin 0.5 % (0.0-1.5) 10/26/20 10:30 ABG Sodium 135.9 mmol/L (136.0-145.0) L 10/13/20 07:18 ABG Potassium 3.7 mmol/L (3.40-4.50) 10/13/20 07:18 ABG Chloride 111.0 mmol/L (98-107) H 10/13/20 07:18 ABG Glucose 109 mg/dL (65-95) H 10/13/20 07:18 VBG pH 6.949 (7.320-7.420) L* 10/02/20 Unknown Oxyhemoglobin 96.5 % (95.0-99.0) 10/26/20 10:30 Carboxyhemoglobin 0.3 (0.5-1.5) L 10/13/20 07:18 FiO2 25 % 10/26/20 10:30 Sodium 138 mmol/L (137-145) 11/13/20 10:05 Potassium 4.3 mmol/L (3.6-5.0) 11/13/20 10:05 Chloride 101.7 mmol/L (98-107) 11/13/20 10:05 Carbon Dioxide 23 mmol/L (22-30) 11/13/20 10:05 Anion Gap 18 mmol/L 11/13/20 10:05 BUN 14 mg/dL (7-17) 11/13/20 10:05 Creatinine 0.6 mg/dL (0.6-1.2) 11/13/20 10:05 Estimated GFR > 60 ml/min 11/13/20 10:05 BUN/Creatinine Ratio 23 % 11/13/20 10:05 Glucose 114 mg/dL (65-100) H 11/13/20 10:05 POC Glucose 94 mg/dL (70-105) 11/18/20 11:44 Random Insulin 43.2 uIU/mL (<=19.6) H 11/02/20 19:19 Proinsulin See scanned result 11/02/20 19:19 C-Peptide 6.23 ng/mL (0.80-3.85) H 11/02/20 19:19 Lactic Acid 1.90 mmol/L (0.7-2.0) 10/04/20 22:00 Uric Acid 7.5 mg/dL (3.5-7.6) 10/02/20 13:05 Calcium 9.7 mg/dL (8.4-10.2) 11/13/20 10:05 Ionized Calcium 4.4 mg/dL (4.8-5.6) L 10/07/20 21:00 Phosphorus 4.60 mg/dL (2.5-4.5) H 11/13/20 10:05 Magnesium 2.10 mg/dL (1.7-2.3) 11/13/20 10:05 Total Bilirubin 0.50 mg/dL (0.1-1.2) 11/04/20 05:00 AST 90 units/L (5-40) H 11/04/20 05:00 ALT 36 units/L (7-56) 11/04/20 05:00 Alkaline Phosphatase 122 units/L (35-129) 11/04/20 05:00 Lactate Dehydrogenase 769 units/L (91-180) H 10/02/20 13:05 C-Reactive Protein 0.70 mg/dL (0.00-1.30) 11/11/20 13:50 NT-Pro-B Natriuret Pep 2788 pg/mL (0-450) H 10/04/20 10:00 Total Protein 7.4 g/dL (6.3-8.2) 11/04/20 05:00 Albumin 3.8 g/dL (3.9-5) L 11/04/20 05:00 Albumin/Globulin Ratio 1.1 % 11/04/20 05:00 Procalcitonin < 0.05 ng/mL (<0.15) 11/11/20 13:50 Arterial Blood Glucose 109 mg/dL (65-95) H 10/13/20 07:18 Arterial Blood Ionized Calcium 4.6 mg/dL (4.6-5.3) 10/13/20 07:18 Urine Color Yellow (Yellow) 11/11/20 13:50 Urine Turbidity Cloudy (Clear) 11/11/20 13:50 Urine pH 6.0 (5.0-7.0) 11/11/20 13:50 Ur Specific [place] 1.013 (1.003-1.030) 11/11/20 13:50 Urine Protein 100 mg/dl mg/dL (Negative) 11/11/20 13:50 Urine Glucose (UA) Neg mg/dL (Negative) 11/11/20 13:50 Urine Ketones Neg mg/dL (Negative) 11/11/20 13:50 Urine Blood Mod (Negative) 11/11/20 13:50 Urine Nitrite Pos (Negative) 11/11/20 13:50 Urine Bilirubin Neg (Negative) 11/11/20 13:50 Urine Urobilinogen 2.0 mg/dL (<2.0) 11/11/20 13:50 Ur Leukocyte Esterase Lg (Negative) 11/11/20 13:50 Urine WBC (Auto) > 182.0 /HPF (0.0-6.0) H 11/11/20 13:50 Urine RBC (Auto) > 182.0 /HPF (0.0-6.0) 11/11/20 13:50 U Epithel Cells (Auto) 1.0 /HPF (0-13.0) 11/11/20 13:50 Urine Bacteria (Auto) 4+ /HPF (Negative) 11/11/20 13:50 Urine WBC Clumps 3+ /HPF 11/11/20 13:50 Calcium Oxalate Crystal Few 11/11/20 13:50 Urine Mucus Few /HPF 11/11/20 13:50 Vancomycin Trough 12.6 ug/mL (5.0-20.0) 10/21/20 13:54 Random Vancomycin 10.7 ug/mL (0-40.0) 10/16/20 13:09 Phenytoin 5.7 ug/mL (10.0-20.0) L 10/13/20 07:00 C. difficile Tox (PCR) Positive (Negative) 10/16/20 10:22 Coronavirus (PCR) Negative (Negative) 10/08/20 14:15 Blood Type O POSITIVE 10/02/20 12:50 Antibody Screen Negative 10/02/20 12:50 Crossmatch See Detail 10/02/20 12:50 - Diagnostic Impressions Diagnostic Impressions: Echocardiogram 10/03/20 13:42 Transthoracic Echocardiogram Indication: S/P Cardiac Arrest R/O Cardiomyopathy BP: 133/71 Conclusions *Global left ventricular systolic function is normal. *The estimated ejection fraction is 60-65%. *There is trace of mitral regurgitation. *The right 0heart chambers are both slightly dilated. *There is mild tricuspid regurgitation. *There is mild-moderate pulmonary hypertension. *The right ventricular systolic pressure is calculated at 44 mmHg. *The study quality is technically difficult. Findings Procedure Info: The study quality is technically difficult. The study is technically limited due to patient body habitus. The study was technically limited due to the patient's inability to lay in the left lateral decubitus position. Left Ventricle: The left ventricular chamber size is normal. There is no left ventricular hypertrophy. Global left ventricular systolic function is normal. The estimated ejection fraction is 60-65%. Left Atrium: The left atrial chamber size is normal. Right Ventricle: The right ventricle is slightly dilated. Right Atrium: The right atrium is mildly dilated. Aortic Valve: The aortic valve leaflets are mildly thickened. There is no evidence of aortic regurgitation. There is no evidence of aortic stenosis. Mitral Valve: The mitral valve leaflets are mildly thickened. There is trace of mitral regurgitation. There is no evidence of mitral stenosis. Tricuspid Valve: There is mild tricuspid regurgitation. The right ventricular systolic pressure is calculated at 44 mmHg. There is evidence of mild pulmonary hypertension. Pulmonic Valve: There is trace pulmonic regurgitation. Pericardium: There is no pericardial effusion. Aorta: There is no dilatation of the ascending aorta. There is no dilatation of the aortic root. Venous: The inferior vena cava is dilated. Measurements Chambers 2D Name Value Normal Range IVSd (2D) 1 cm (0.6 - 1.1) LVPWd (2D) 1.01 cm (0.6 - 1.1) LVIDd (2D) 4.58 cm (3.7 - 5.6) LVIDs (2D) 3.17 cm (2 - 3.8) LV FS (2D) 30.93 % - EF Teichholz (2D) 58.66 % - Ao root diameter (2D) 2.94 cm (2 - 3.7) Volumes/Mass Name Value Normal Range LA ESV SP 4CH (A/L) 72.82 ml - LA ESV SP 2CH (A/L) 66.86 ml - LA ESV BP (A/L) 74.49 ml - LA ESV SP 4CH (MOD) 71.03 ml - LA ESV SP 2CH (MOD) 64.3 ml - LV EDV SP 4CH (MOD) 98.82 ml - LV ESV SP 4CH (MOD) 24.8 ml - EF SP 4CH (MOD) 74.9 % - LV EDV SP 2CH (MOD) 86.1 ml - LV ESV SP 2CH (MOD) 36.93 ml - EF SP 2CH (MOD) 57.11 % - LV EDV BP 94.4 ml - LV ESV BP 32.66 ml - BP EF (MOD) 65.4 % - Diastolic/Systolic Function Name Value Normal Range MV E-wave Vmax 1.04 m/sec - MV deceleration time 160.46 msec - MV A-wave Vmax 0.92 m/sec - MV E:A ratio 1.14 ratio - Aortic Valve Name Value Normal Range AV Vmax 2.12 m/sec - AV VTI 22.37 cm - AV peak gradient 17.95 mmHg - AV mean gradient 7.29 mmHg - LVOT diameter 2.01 cm - LVOT Vmax 1.8 m/sec - LVOT VTI 27.17 cm - LVOT peak gradient 12.91 mmHg - LVOT mean gradient 6.83 mmHg - SV LVOT 86.42 ml - ANITA (continuity Vmax) 2.7 cm2 - ANITA (continuity VTI) 3.86 cm2 - Ascending Ao 3.18 cm - Tricuspid Valve Name Value Normal Range TV E-wave Vmax 0.88 m/sec - TR Vmax 3.01 m/sec - TR peak gradient 36.27 mmHg - RAP 8 mmHg - RVSP 44 mmHg - IVC diameter 2.65 cm (1.2 - 2.3) Pulmonic Valve/Qp:Qs Name Value Normal Range PV Vmax 1.22 m/sec - PV peak gradient 5.91 mmHg - RVOT Vmax 0.87 m/sec - RVOT VTI 13.32 cm - RVOT peak gradient 3 mmHg - PV acceleration time 110.37 msec - [place]/IV: Voiding Method External Female Catheter IV Catheter Type [Right Foot] INT / Saline Lock IV Catheter Type [Left Forearm Peripheral IV ] IV Catheter Type [Left Wrist] INT / Saline Lock IV Catheter Type [Right Hand] INT / Saline Lock IV Catheter Type [Right INT / Saline Lock Antecubital] IV Catheter Type [Right Upper Mid-line arm] IV Catheter Type [Left Triple Lumen Cath Internal Jugular] IV Catheter Type [Left Hand] Peripheral IV IV Catheter Type [Left Peripheral IV Antecubital] Active Medications - Current Medications Current Medications: Generic Name Dose Route Start Last Admin Trade Name Freq PRN Reason Stop Dose Admin Acetaminophen 650 mg 10/05/20 16:34 11/16/20 21:11 Acetaminophen 325 Mg/10.15 Ml Oral Liqd Unit Dose FEEDTUBE 650 mg Q6H PRN Administration Non Cardiac Pain or Temp>100.5 Albuterol 2.5 mg 11/05/20 13:03 11/06/20 13:04 Albuterol 2.5 Mg/3 Ml Nebu IH 2.5 mg Q4HRT PRN Administration Shortness Of Breath Lipase/Protease/Amylase 1 each 10/05/20 11:09 Lipase 10,500/Protease 25,000/Amylase 43,750 (Units) Dr Barakat FEEDTUBE PRN PRN For Clogged Feeding Tube Enoxaparin Sodium 40 mg 10/22/20 10:00 11/18/20 11:03 Enoxaparin 40 Mg/0.4 Ml Inj SUB-Q 40 mg DAILY ERINN Administration Protocol Famotidine 20 mg 10/07/20 10:00 11/18/20 11:03 Famotidine 20 Mg Tab PO 20 mg BID ERINN Administration Furosemide 40 mg 10/17/20 10:00 11/18/20 11:03 Furosemide 40 Mg Tab PO 40 mg QDAY ERINN Administration Hydralazine HCl 20 mg 10/07/20 11:49 10/17/20 07:20 Hydralazine 20 Mg/1 Ml Inj IV 20 mg Q6H PRN Administration SBP >170 Hydralazine HCl 50 mg 10/17/20 09:00 11/18/20 06:12 Hydralazine 25 Mg Tab PO 50 mg Q8HR ERINN Administration Dextrose 1,000 mls @ 75 mls/hr 10/13/20 11:00 11/18/20 06:17 D10w IV 75 mls/hr DIRECT ERINN Administration Labetalol HCl 300 mg 11/16/20 17:00 11/18/20 11:03 Labetalol 200 Mg Tab PO 300 mg TID ERINN Administration Simple Syrup 15 ml 10/05/20 11:09 Simple Syrup 15 Ml FEEDTUBE PRN PRN Hypoglycemia Simple Syrup 30 ml 10/05/20 11:09 Simple Syrup 15 Ml FEEDTUBE PRN PRN Hypoglycemia Sodium Bicarbonate 325 mg 10/05/20 11:09 11/16/20 16:54 Sodium Bicarbonate 325 Mg Tab FEEDTUBE 325 mg PRN PRN Administration For Clogged Feeding Tube Sodium Bicarbonate 1,300 mg 10/13/20 14:00 11/18/20 11:03 Sodium Bicarbonate 650 Mg Tab PO 1,300 mg TID ERINN Administration Topiramate 50 mg 10/05/20 11:00 11/18/20 11:02 Topiramate Tab 25 Mg Tab PO 50 mg Q12HR ERINN Administration Nutrition/Malnutrition Assess - Dietary Evaluation Nutrition/Malnutrition Findings: Nutrition Notes Start: 10/04/20 11:13 Freq: Status: Active Protocol: Document 11/17/20 12:57 AB (Rec: 11/17/20 13:39 AB [id number]) Co-Sign 11/17/20 12:57 NHALL Nutrition Notes Initial or Follow up Reassessment Current Diagnosis Acute Kidney Injury, Respiratory Failure Other Pertinent Diagnosis C-Diff, Cardiac arrest, s/p c- section and supracervical hysterectomy Current Diet Jevity 1.2 at 60 ml/hr Labs/Tests Reviewed Pertinent Medications Lasix D10w at 75ml/hr Height 5 ft 8 in Weight 105 kg [place] Body Weight (kg) 63.63 BMI 35.2 Weight change and time frame 11% wt loss in 1 mth Weight Status Obese Subjective/Other Information F/U for TF tolerance, POC. Pt on T-piece. Still waiting for SNF placement. Per RN, pt is tolerating TF running at goal. Percent of energy/protein needs met: 100%/100% Burn Absent Trauma Absent GI Symptoms None Food Allergy Yes Current % PO Negligible Minimum of two criteria Yes Interpretation of Weight Loss (severe) >5% in 1 month Fluid Accumulation Mild (non-severe) #2 Nutrition Diagnosis Malnutrition Etiology critically ill status As Evidenced by Signs and Symptoms fluid accumulation and wt loss of 11% in 1 month #1 Nutrition Diagnosis Inadequate oral intake Diagnosis Progress(for reassessment Continues documentation) Is patient on ventilator? No Is Patient Ambulatory and/or Out of Bed No REE-([place]-confined to bed) 2172.012 Kcal/Kg value to use for calculation 16 Approximate Energy Requirements Using 1680 kcal/Kg Calculation Used for Recommendations Kcal/kg Additional Notes Protein needs are 68-85g (0.8- 1g/kg AdjBW 85kg) Fluid needs are 1ml/kcal Nutrition Intervention Change Diet Order: Continue Nutrition Support: Jevity 1.2 at 60ml/hr. Flush 100ml q4h. Kcal 1,782 Protein (gm) 87 Fluid (mL) 1,259 Goal #1 TF tolerance Goal #2 Meet at least 75% of energy and protein needs Anticipated Discharge Needs: Unable to determine at this time Follow-Up By: 11/24/20 Additional Comments F/U for stable TF, weight, POC
[2020-11-18] MEDS: ACETAMINOPHEN 325 MG/10.15 ML ORAL LIQD UNIT DOSE FEEDTUBE PRN (20:54)
[2020-11-19] MEDS: ACETAMINOPHEN 325 MG/10.15 ML ORAL LIQD UNIT DOSE FEEDTUBE PRN (05:39)
[2020-11-19 05:49] LABS: Hematocrit 34.5 % (30.3-42.9); Hemoglobin 11.1 gm/dl (10.1-14.3)
[2020-11-19] MEDS: DEXTROSE 10% IN WATER 1,000 ML IV SCH ×3 (06:05→21:37)
[2020-11-19] MEDS: hydrALAZINE 25 MG TAB PO SCH ×2 (06:07→20:13)
--- NOTE | 2020-11-19 08:12 | Progress Note ---
Assessment and Plan - Patient Problems (1) Encephalopathy Current Visit: Yes Status: Acute Plan to address problem: POD #48 s/p supracervical hysterectomy for hemorrhage hemoglobin remains stable; no active bleeding Neurologically unchanged awaiting placement (2) Fever Current Visit: Yes Status: Acute Subjective - Subjective Date of service: 11/19/20 Principal diagnosis: Eclampsia/HELLP Syndrome, ADOLPH, DIC; s/p , s/p supracervical hyst Interval history: 30y/o POD #48 s/p supracervical hysterectomy for eclampsia and DIC. Patient remains unresponsive. Hemoglobin remains stable. CT findings consistent with postoperative changes Objective - Vital Signs Latest vital signs: Vital Signs Temp Pulse Pulse Resp BP Pulse Ox Pulse Ox 11/19/20 07:31 95 H 28 H 124/63 96 11/19/20 07:01 91 H 23 124/63 97 11/19/20 06:39 20 11/19/20 06:31 100 H 22 128/77 96 11/19/20 06:07 65 117/69 11/19/20 06:00 78 17 117/69 96 11/19/20 05:39 22 11/19/20 05:31 94 H 22 112/65 98 11/19/20 05:01 89 25 H 112/65 11/19/20 04:34 98 11/19/20 04:30 94 H 26 H 112/65 99 11/19/20 04:00 98.4 F 87 87 17 111/70 97 11/19/20 03:30 88 21 113/66 97 11/19/20 03:00 77 19 112/62 97 11/19/20 02:30 97 H 26 H 105/72 99 11/19/20 02:00 72 17 100/59 99 11/19/20 01:30 69 17 97/53 99 11/19/20 01:00 79 17 108/60 99 11/19/20 00:30 80 16 110/58 100 11/19/20 00:00 97.7 F 76 20 108/60 98 11/18/20 23:48 77 11/18/20 23:40 77 11/18/20 23:33 96 H 29 H 114/50 99 11/18/20 23:30 94 H 28 H 114/50 98 11/18/20 23:28 96 H 29 H 110/60 99 11/18/20 23:00 80 18 110/60 98 11/18/20 22:30 88 25 H 103/38 99 11/18/20 22:00 96 H 31 H 107/61 99 11/18/20 21:54 25 H 11/18/20 21:30 88 22 114/73 99 11/18/20 21:01 101 H 18 122/80 99 11/18/20 21:00 98 H 146/51 11/18/20 20:54 16 11/18/20 20:53 101 H 124/81 11/18/20 20:30 101 H 25 H 124/81 99 11/18/20 20:26 99 11/18/20 20:03 104 H 11/18/20 20:00 99.4 F 103 H 22 122/80 99 11/18/20 19:30 99 H 19 126/79 99 11/18/20 19:00 93 H 117/79 98 11/18/20 18:30 94 H 23 121/78 98 11/18/20 18:00 93 H 113/77 99 11/18/20 17:30 91 H 118/88 99 11/18/20 17:00 98 H 123/82 98 11/18/20 16:31 95 H 127/78 99 11/18/20 16:00 99.4 F 88 20 131/80 99 11/18/20 15:30 88 130/85 99 11/18/20 15:00 93 H 122/86 99 11/18/20 14:30 95 H 114/87 99 11/18/20 14:00 93 H 127/83 99 11/18/20 13:31 97 H 28 H 123/78 99 11/18/20 13:00 92 H 17 119/75 98 11/18/20 12:43 98 11/18/20 12:30 89 28 H 115/75 98 11/18/20 12:00 99.0 F 88 16 116/73 98 11/18/20 11:30 86 20 127/86 100 11/18/20 11:03 102 H 11/18/20 11:00 103 H 15 123/81 99 11/18/20 10:30 86 21 119/79 98 11/18/20 10:00 81 19 120/72 99 11/18/20 09:30 103 H 23 125/66 99 11/18/20 09:00 84 18 114/71 97 11/18/20 08:33 99 99 11/18/20 08:30 84 16 114/71 99 Intake and Output 11/18/20 11/19/20 11/19/20 22:59 06:59 14:59 Intake Total 1680 1368.75 60 Output Total 550 1 Balance 1130 1367.75 60 Intake: IV 1000 688.75 D10w 1,000 ml @ 75 mls/hr 1000 688.75 IV DIRECT ERINN Rx#: [id number] Intake, Free Water 100 Tube Feeding 480 480 60 Other 100 200 Output: Gastric Drainage 1 Lt Upper Quadrant 1 Urine 550 Void 550 Other: Total, Intake Amount 60 160 60 Total, Output Amount 200 Voiding Method External Female Catheter External Female Catheter # Voids Void 3 2 # Bowel Movements 1 0 Weight 96.5 kg
--- NOTE | 2020-11-19 09:00 | Progress Note ---
Assessment and Plan 30 y/o female with Eclampsia, s/p emergent section with DIC, acute respiratory failure and worsening renal function. 11/19/20: Pulm status stable. Will see as needed. Primary to continue work up of hypoglycemia 11/18/20: Same recs as 11/1711/17/20: I have no further ideas in work up in regards to persistent hypoglycemia, despite continuous infusion of D10. All of her markers are elevated that would suggest insulinoma but unable to prove this with imaging. Patient needs transfer to a tertiary care center with Endocrinology available for consultation. Pulm status stable. Will see PRN. 11/16/20: STeroids have not helped so will stop today. Obtain CT scan as instructed to order by Radiology. If tumor present will need transfer to tertiary care center with inpatient endocrinology. Prognosis remains guarded. 11/15/20: Will go to radiology tomorrow morning. Will likely stop stress dose steroids tomorrow as no real improvement in sugars. COntinue Trach collar. Needs rehab. ProInsulin is back at 38.2 11/14/20: Will speak with radiology again on Monday to ask them to help me with the ordering of the scan. Continue stress dose steroids at least through tomorrow. No real change in blood sugars as of yet. 11/13/20: Attempt a trial of stress dose steroids to see if this improves sugar levels. I have called CT 3x but no answer. Will go down there and see if they are able to do a CT of the abdomen with pancreas protocol to observe for insulinoma. Continue supportive care and airway maintenance therapy. 11/12/20: Continue D10. I have reached out to an endocrine physician from an outside hospital who is willing to help me with the work up and possible help with diagnosis. 11/11/20: Call labs today about proinuslin. Signed letter for family today. Needs endocrine consult but not available here. 11/10/20: If proinsulin not back by tomorrow will call lab. Once I have all info, will see if I can obtain and endocrine consult via phone to discuss case. Continue supplemental oxygen. Needs PT 11/09/20: Follow up Proinsulin levels. No endocrine consult available here, but will do more research to see if we can find out why she remains D10 dependent. Pulm status is stable. Continue T-piece. Not a candidate for floor given D10 requirement. 11/06/20: No new recs. Will continue to check for outside lab results over the weekend. 11/05/20: Awaiting outside labs to work up hypoglycemia. Will add some PRN albuterol nebs to see if this will help to thin out her secretions. 11/04/20: No changes. No new recs. Awaiting send out labs to help figure out hypoglycemia. 11/03/20: Continue D10. Await send out labs. 11/02/20: Called lab today to ask how to order these send out labs. Continue D10 along with feeds for now. Stopped robinol and no further reports of increased thickness of secretions. given D10 requirement, do not feel comfortable with transition to the floor. 11/01/20: Will stop Robinol as this may be making secretions to thick. Huge risk for mucous plugging given mental state. Continue D10 and waiting on labs f rom yesterday. LFT's repeated and AST elevated along with alk phos. Both of these were elevated on admission, then resolved and now are elevated again. In current clinical state, not sure what to make of those numbers. They do not help with trying to figure out hypoglycemia and persistent need for D10. Continue IMCU care. 10/31/20: Will order midline for IV team vs peripheral IV's (multiple). Needs access for d10 as we have not been able to figure out why she is so hypoglyemic. Will measure serum insulin levels and C-peptide levels, as well proinsulin. All of these labs are sendouts so will have to call down to ask how to order as they are not coming up in [facility]. Given her requirement for supplemental IV sugar, not a candidate for floor transfer. 10/30/20: Continue step down monitoring for now. If does well the next 24-36 hours, then will consider floor transfer. Really needs to continue PT with PROM. Will speak with CM about options for here now that critical needs are becoming minimal. 10/29/20: Off vent now for 24 hours. Tolerating T-Piece. Will transition to step down for a few days. If does well there, consider transition to floor. Continue PT. Guarded prognosis. 10/28/20: Daily T-piece trials for as long as tolerated. Attempt to push further daily. OT does not do passive range of motion. Per PT note will do passive range of motion with patient. Guarded prognosis. Hoping to wean off vent and transition to floor. 10/27/20: Continue daily T-piece trials for as long as tolerated. Ok with resting on either PSV or full rate if needed at night but need to strengthen her respiratory muscles. PT/OT if possible. Will transition to step down prior to going to floor to insure stability. 10/26/20: Will obtain ABG today. If good, will attempt on T-piece later. Continue PT/OT. Will speak with CM about possibility of LTACH or nursing facility that can take trached patients. 10/23/20: Daily PSV trials for as long as patient will tolerate. Needs PT/OT consult for passive range of motion. 10/22/20: Will start prolonged PSV trials. Attempt to wean from vent and then transition to floor to see if mental status improves. Continue tube feeds. 10/21/20: Trach and peg placed. No sedation. Restart Lovenox for Upper Ext DVT. Restart feeds when surgery states ok to use PEG. C. Diff treatment per ID. Guarded prognosis. 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 Hopeful to wean off vent at least and then can transfer to floor. 10/20/20: NPO after midnight. DVT study just read from 10/14 on yesterday showing upper ext DVT. Started on Lovenox but need to hold therapy until after surgery. could be source of fevers. No sedation. Subjective Date of service: 11/19/20 Principal diagnosis: Eclampsia/HELLP Syndrome, ADOLPH, DIC; s/p , s/p supracervical hyst Interval history: No acute events. Still on D10. Pulm status is unchanged. Mental status is unchanged. Objective Vital Signs - 12hr 11/18/20 11/18/20 11/18/20 21:00 21:01 21:30 Temperature Pulse Rate 98 H 101 H 88 Pulse Rate [ From Monitor] Respiratory 18 22 Rate Blood Pressure 146/51 122/80 114/73 O2 Sat by Pulse 99 99 Oximetry O2 Sat by Pulse Oximetry [ Assessment] 11/18/20 11/18/20 11/18/20 21:54 22:00 22:30 Temperature Pulse Rate 96 H 88 Pulse Rate [ From Monitor] Respiratory 25 H 31 H 25 H Rate Blood Pressure 107/61 103/38 O2 Sat by Pulse 99 99 Oximetry O2 Sat by Pulse Oximetry [ Assessment] 11/18/20 11/18/20 11/18/20 23:00 23:28 23:30 Temperature Pulse Rate 80 96 H 94 H Pulse Rate [ From Monitor] Respiratory 18 29 H 28 H Rate Blood Pressure 110/60 110/60 114/50 O2 Sat by Pulse 98 99 98 Oximetry O2 Sat by Pulse Oximetry [ Assessment] 11/18/20 11/18/20 11/18/20 23:33 23:40 23:48 Temperature Pulse Rate 96 H 77 Pulse Rate [ 77 From Monitor] Respiratory 29 H Rate Blood Pressure 114/50 O2 Sat by Pulse 99 Oximetry O2 Sat by Pulse Oximetry [ Assessment] 11/19/20 11/19/20 11/19/20 00:00 00:30 01:00 Temperature 97.7 F Pulse Rate 76 80 79 Pulse Rate [ From Monitor] Respiratory 20 16 17 Rate Blood Pressure 108/60 110/58 108/60 O2 Sat by Pulse 98 100 99 Oximetry O2 Sat by Pulse Oximetry [ Assessment] 11/19/20 11/19/20 11/19/20 01:30 02:00 02:30 Temperature Pulse Rate 69 72 97 H Pulse Rate [ From Monitor] Respiratory 17 17 26 H Rate Blood Pressure 97/53 100/59 105/72 O2 Sat by Pulse 99 99 99 Oximetry O2 Sat by Pulse Oximetry [ Assessment] 11/19/20 11/19/20 11/19/20 03:00 03:30 04:00 Temperature 98.4 F Pulse Rate 77 88 87 Pulse Rate [ 87 From Monitor] Respiratory 19 21 17 Rate Blood Pressure 112/62 113/66 111/70 O2 Sat by Pulse 97 97 97 Oximetry O2 Sat by Pulse Oximetry [ Assessment] 11/19/20 11/19/20 11/19/20 04:30 04:34 05:01 Temperature Pulse Rate 94 H 89 Pulse Rate [ From Monitor] Respiratory 26 H 25 H Rate Blood Pressure 112/65 112/65 O2 Sat by Pulse 99 Oximetry O2 Sat by Pulse 98 Oximetry [ Assessment] 11/19/20 11/19/20 11/19/20 05:31 05:39 06:00 Temperature Pulse Rate 94 H 78 Pulse Rate [ From Monitor] Respiratory 22 22 17 Rate Blood Pressure 112/65 117/69 O2 Sat by Pulse 98 96 Oximetry O2 Sat by Pulse Oximetry [ Assessment] 11/19/20 11/19/20 11/19/20 06:07 06:31 06:39 Temperature Pulse Rate 65 100 H Pulse Rate [ From Monitor] Respiratory 22 20 Rate Blood Pressure 117/69 128/77 O2 Sat by Pulse 96 Oximetry O2 Sat by Pulse Oximetry [ Assessment] 11/19/20 11/19/20 07:01 07:31 Temperature Pulse Rate 91 H 95 H Pulse Rate [ From Monitor] Respiratory 23 28 H Rate Blood Pressure 124/63 124/63 O2 Sat by Pulse 97 96 Oximetry O2 Sat by Pulse Oximetry [ Assessment] Constitutional: comatose, other (s/p trach) Eyes: non-icteric ENT: oropharynx moist Neck: other (large in cirumference) Effort: normal Ascultation: Bilateral: clear, diminished breath sounds, rhonchi, other (coarse BS bilaterally) Percussion: Bilateral: not dull Cardiovascular: regular rate and rhythm, other (no mrg) Gastrointestinal: normoactive bowel sounds, soft Extremities: no cyanosis, pink and warm Neurologic: other (unresponsive, not following commands, not tracking) Psychiatric: other (unable to assess) CBC and BMP: 11/19/20 05:23 11/13/20 10:05 ABG, PT/INR, D-dimer: ABG ABG pH 7.459 pH Units (7.350-7.450) H 10/26/20 10:30 POC ABG pCO2 20.7 mmHg (32.0-48.0) L 10/13/20 07:18 ABG pCO2 32.4 mm Hg 10/26/20 10:30 POC ABG pO2 137.9 mmHg (83-108) H 10/13/20 07:18 ABG pO2 112.2 mm Hg (80.0-90.0) H 10/26/20 10:30 POC ABG HCO3 14.8 10/13/20 07:18 ABG O2 Saturation 98.2 % (95.0-99.0) 10/26/20 10:30 PT/INR, D-dimer PT 13.6 Sec. (12.2-14.9) 10/21/20 13:54 INR 1.06 (0.87-1.13) 10/21/20 13:54 D-Dimer 1974.47 ng/mlDDU (0-234) H 11/11/20 13:50 Abnormal lab findings: Abnormal Labs 10/02/20 10/02/20 10/02/20 12:03 12:18 12:18 WBC 14.9 H RBC Hgb 9.1 L Hct MCV MCH 22 L MCHC 28 L RDW 17.6 H Plt Count 102 L Lymph % (Auto) [place] % (Auto) Lymph # (Auto) [place] # (Auto) Baso # (Auto) Seg Neutrophils % Seg Neuts % (Manual) 36.0 L Lymphocytes % (Manual) 49.0 H Monocytes % (Manual) Nucleated RBC % 6.0 H Seg Neutrophils # Seg Neutrophils # Man Lymphocytes # (Manual) 7.3 H Monocytes # (Manual) PT INR APTT Fibrinogen D-Dimer ABG pH POC ABG pCO2 POC ABG pO2 ABG pO2 ABG HCO3 ABG Base Excess ABG Hemoglobin ABG Oxyhemoglobin ABG Sodium ABG Potassium ABG Chloride ABG Glucose VBG pH Oxyhemoglobin Carboxyhemoglobin Sodium 134 L Potassium Chloride Carbon Dioxide 12 L BUN 6 L Creatinine Glucose 390 H POC Glucose 451 H Random Insulin C-Peptide Lactic Acid Calcium Ionized Calcium Phosphorus Magnesium AST 135 H ALT 85 H Alkaline Phosphatase 172 H Lactate Dehydrogenase 641 H NT-Pro-B Natriuret Pep Total Protein 5.4 L Albumin 2.3 L Arterial Blood Glucose Arterial Blood Ionized Calcium Urine WBC (Auto) Vancomycin Trough Phenytoin Crossmatch 10/02/20 10/02/20 10/02/20 12:50 13:05 13:05 WBC 38.6 H RBC Hgb 8.9 L Hct 29.0 L MCV 73 L MCH 22 L MCHC RDW 17.2 H Plt Count Lymph % (Auto) [place] % (Auto) Lymph # (Auto) [place] # (Auto) Baso # (Auto) Seg Neutrophils % Seg Neuts % (Manual) Lymphocytes % (Manual) Monocytes % (Manual) Nucleated RBC % 2.0 H Seg Neutrophils # Seg Neutrophils # Man 20.1 H Lymphocytes # (Manual) 10.4 H Monocytes # (Manual) 2.3 H PT INR APTT Fibrinogen D-Dimer ABG pH POC ABG pCO2 POC ABG pO2 ABG pO2 ABG HCO3 ABG Base Excess ABG Hemoglobin ABG Oxyhemoglobin ABG Sodium ABG Potassium ABG Chloride ABG Glucose VBG pH Oxyhemoglobin Carboxyhemoglobin Sodium Potassium Chloride Carbon Dioxide BUN Creatinine Glucose POC Glucose Random Insulin C-Peptide Lactic Acid Calcium Ionized Calcium Phosphorus Magnesium AST 184 H ALT 113 H Alkaline Phosphatase Lactate Dehydrogenase 769 H NT-Pro-B Natriuret Pep Total Protein Albumin Arterial Blood Glucose Arterial Blood Ionized Calcium Urine WBC (Auto) Vancomycin Trough Phenytoin Crossmatch See Detail 10/02/20 10/02/20 10/02/20 16:25 16:35 16:35 WBC RBC Hgb Hct MCV MCH MCHC RDW Plt Count Lymph % (Auto) [place] % (Auto) Lymph # (Auto) [place] # (Auto) Baso # (Auto) Seg Neutrophils % Seg Neuts % (Manual) Lymphocytes % (Manual) Monocytes % (Manual) Nucleated RBC % Seg Neutrophils # Seg Neutrophils # Man Lymphocytes # (Manual) Monocytes # (Manual) PT INR APTT Fibrinogen D-Dimer ABG pH 7.031 L* POC ABG pCO2 POC ABG pO2 ABG pO2 116.8 H ABG HCO3 12.7 L ABG Base Excess -16.9 L ABG Hemoglobin 7.8 L ABG Oxyhemoglobin ABG Sodium ABG Potassium ABG Chloride ABG Glucose VBG pH Oxyhemoglobin 94.9 L Carboxyhemoglobin Sodium Potassium Chloride Carbon Dioxide BUN Creatinine Glucose 403 H POC Glucose Random Insulin C-Peptide Lactic Acid 11.40 H* Calcium 6.3 L D Ionized Calcium Phosphorus Magnesium AST 70 H ALT Alkaline Phosphatase Lactate Dehydrogenase NT-Pro-B Natriuret Pep Total Protein 1.9 L D Albumin 1.2 L Arterial Blood Glucose Arterial Blood Ionized Calcium Urine WBC (Auto) Vancomycin Trough Phenytoin Crossmatch 10/02/20 10/02/20 10/02/20 18:18 18:18 22:30 WBC 11.5 H RBC 2.06 L Hgb 5.5 L* D Hct 17.3 L* D MCV MCH 27 L MCHC RDW 19.5 H Plt Count 60 L Lymph % (Auto) [place] % (Auto) Lymph # (Auto) [place] # (Auto) Baso # (Auto) Seg Neutrophils % Seg Neuts % (Manual) Lymphocytes % (Manual) 8.0 L Monocytes % (Manual) 8.0 H Nucleated RBC % 8.0 H Seg Neutrophils # Seg Neutrophils # Man Lymphocytes # (Manual) 0.9 L Monocytes # (Manual) 0.9 H PT 37.1 H INR 3.71 H APTT 135.8 H* Fibrinogen D-Dimer ABG pH 7.067 L* POC ABG pCO2 POC ABG pO2 ABG pO2 183.0 H ABG HCO3 14.1 L ABG Base Excess -15.1 L ABG Hemoglobin 7.7 L ABG Oxyhemoglobin ABG Sodium ABG Potassium ABG Chloride ABG Glucose VBG pH Oxyhemoglobin Carboxyhemoglobin Sodium Potassium Chloride Carbon Dioxide BUN Creatinine Glucose POC Glucose Random Insulin C-Peptide Lactic Acid Calcium Ionized Calcium Phosphorus Magnesium AST ALT Alkaline Phosphatase Lactate Dehydrogenase NT-Pro-B Natriuret Pep Total Protein Albumin Arterial Blood Glucose Arterial Blood Ionized Calcium Urine WBC (Auto) Vancomycin Trough Phenytoin Crossmatch 10/02/20 10/02/20 10/03/20 Unknown Unknown 00:01 WBC RBC Hgb Hct MCV MCH MCHC RDW Plt Count Lymph % (Auto) [place] % (Auto) Lymph # (Auto) [place] # (Auto) Baso # (Auto) Seg Neutrophils % Seg Neuts % (Manual) Lymphocytes % (Manual) Monocytes % (Manual) Nucleated RBC % Seg Neutrophils # Seg Neutrophils # Man Lymphocytes # (Manual) Monocytes # (Manual) PT 61.1 H INR 6.92 H* APTT 158.7 H* Fibrinogen < 60 L* D-Dimer > 79051 H ABG pH POC ABG pCO2 POC ABG pO2 ABG pO2 ABG HCO3 ABG Base Excess ABG Hemoglobin ABG Oxyhemoglobin ABG Sodium ABG Potassium ABG Chloride ABG Glucose VBG pH 6.949 L* Oxyhemoglobin Carboxyhemoglobin Sodium Potassium Chloride Carbon Dioxide BUN Creatinine Glucose POC Glucose 196 H Random Insulin C-Peptide Lactic Acid Calcium Ionized Calcium Phosphorus Magnesium AST ALT Alkaline Phosphatase Lactate Dehydrogenase NT-Pro-B Natriuret Pep Total Protein Albumin Arterial Blood Glucose Arterial Blood Ionized Calcium Urine WBC (Auto) Vancomycin Trough Phenytoin Crossmatch 10/03/20 10/03/20 10/03/20 00:40 00:40 00:40 WBC RBC Hgb Hct MCV MCH MCHC RDW Plt Count Lymph % (Auto) [place] % (Auto) Lymph # (Auto) [place] # (Auto) Baso # (Auto) Seg Neutrophils % Seg Neuts % (Manual) Lymphocytes % (Manual) Monocytes % (Manual) Nucleated RBC % Seg Neutrophils # Seg Neutrophils # Man Lymphocytes # (Manual) Monocytes # (Manual) PT 15.1 H INR 1.21 H APTT Fibrinogen D-Dimer ABG pH POC ABG pCO2 POC ABG pO2 ABG pO2 ABG HCO3 ABG Base Excess ABG Hemoglobin ABG Oxyhemoglobin ABG Sodium ABG Potassium ABG Chloride ABG Glucose VBG pH Oxyhemoglobin Carboxyhemoglobin Sodium 136 L Potassium Chloride Carbon Dioxide BUN Creatinine 1.6 H D Glucose 106 H POC Glucose Random Insulin C-Peptide Lactic Acid 5.60 H* Calcium 6.5 L Ionized Calcium Phosphorus Magnesium AST 232 H ALT 104 H Alkaline Phosphatase Lactate Dehydrogenase NT-Pro-B Natriuret Pep Total Protein 3.9 L D Albumin 2.4 L Arterial Blood Glucose Arterial Blood Ionized Calcium Urine WBC (Auto) Vancomycin Trough Phenytoin Crossmatch 10/03/20 10/03/20 10/03/20 02:08 02:08 02:08 WBC 17.6 H RBC 3.27 L Hgb 9.9 L D Hct 29.9 L D MCV MCH MCHC RDW 16.5 H Plt Count 75 L Lymph % (Auto) [place] % (Auto) Lymph # (Auto) [place] # (Auto) Baso # (Auto) Seg Neutrophils % Seg Neuts % (Manual) 76.0 H Lymphocytes % (Manual) Monocytes % (Manual) Nucleated RBC % 8.0 H Seg Neutrophils # Seg Neutrophils # Man 13.4 H Lymphocytes # (Manual) Monocytes # (Manual) PT INR APTT Fibrinogen D-Dimer ABG pH POC ABG pCO2 POC ABG pO2 ABG pO2 ABG HCO3 ABG Base Excess ABG Hemoglobin ABG Oxyhemoglobin ABG Sodium ABG Potassium ABG Chloride ABG Glucose VBG pH Oxyhemoglobin Carboxyhemoglobin Sodium Potassium Chloride Carbon Dioxide 19 L BUN Creatinine 1.4 H Glucose 306 H POC Glucose Random Insulin C-Peptide Lactic Acid 10.50 H* Calcium 6.4 L Ionized Calcium Phosphorus Magnesium AST ALT Alkaline Phosphatase Lactate Dehydrogenase NT-Pro-B Natriuret Pep Total Protein Albumin Arterial Blood Glucose Arterial Blood Ionized Calcium Urine WBC (Auto) Vancomycin Trough Phenytoin Crossmatch 10/03/20 10/03/20 10/03/20 02:42 03:59 05:31 WBC RBC Hgb Hct MCV MCH MCHC RDW Plt Count Lymph % (Auto) [place] % (Auto) Lymph # (Auto) [place] # (Auto) Baso # (Auto) Seg Neutrophils % Seg Neuts % (Manual) Lymphocytes % (Manual) Monocytes % (Manual) Nucleated RBC % Seg Neutrophils # Seg Neutrophils # Man Lymphocytes # (Manual) Monocytes # (Manual) PT INR APTT Fibrinogen D-Dimer ABG pH 7.144 L POC ABG pCO2 54.4 H POC ABG pO2 ABG pO2 ABG HCO3 ABG Base Excess ABG Hemoglobin 10.0 L ABG Oxyhemoglobin ABG Sodium ABG Potassium ABG Chloride 108.0 H ABG Glucose 306 H VBG pH Oxyhemoglobin Carboxyhemoglobin Sodium Potassium Chloride Carbon Dioxide BUN Creatinine Glucose POC Glucose 209 H Random Insulin C-Peptide Lactic Acid 9.20 H* Calcium Ionized Calcium Phosphorus Magnesium AST ALT Alkaline Phosphatase Lactate Dehydrogenase NT-Pro-B Natriuret Pep Total Protein Albumin Arterial Blood Glucose 306 H Arterial Blood Ionized Calcium 3.7 L Urine WBC (Auto) Vancomycin Trough Phenytoin Crossmatch 10/03/20 10/03/20 10/03/20 09:00 09:00 09:00 WBC 27.4 H RBC 2.84 L Hgb 8.5 L Hct 25.1 L MCV MCH MCHC RDW 16.1 H Plt Count 72 L Lymph % (Auto) [place] % (Auto) Lymph # (Auto) [place] # (Auto) Baso # (Auto) Seg Neutrophils % Seg Neuts % (Manual) Lymphocytes % (Manual) 11.0 L Monocytes % (Manual) Nucleated RBC % 3.0 H Seg Neutrophils # Seg Neutrophils # Man 18.4 H Lymphocytes # (Manual) Monocytes # (Manual) 1.9 H PT INR APTT Fibrinogen D-Dimer ABG pH POC ABG pCO2 POC ABG pO2 ABG pO2 ABG HCO3 ABG Base Excess ABG Hemoglobin ABG Oxyhemoglobin ABG Sodium ABG Potassium ABG Chloride ABG Glucose VBG pH Oxyhemoglobin Carboxyhemoglobin Sodium Potassium Chloride Carbon Dioxide BUN Creatinine 1.7 H Glucose 216 H POC Glucose Random Insulin C-Peptide Lactic Acid 9.20 H* Calcium 6.3 L Ionized Calcium Phosphorus Magnesium AST 331 H ALT 171 H Alkaline Phosphatase Lactate Dehydrogenase NT-Pro-B Natriuret Pep Total Protein 3.7 L Albumin 1.9 L Arterial Blood Glucose Arterial Blood Ionized Calcium Urine WBC (Auto) Vancomycin Trough Phenytoin Crossmatch 10/03/20 10/03/20 10/03/20 11:20 11:46 11:50 WBC 28.7 H RBC 2.67 L Hgb 8.0 L Hct 23.7 L MCV MCH MCHC RDW 16.6 H Plt Count 76 L Lymph % (Auto) [place] % (Auto) Lymph # (Auto) [place] # (Auto) Baso # (Auto) Seg Neutrophils % Seg Neuts % (Manual) Lymphocytes % (Manual) Monocytes % (Manual) Nucleated RBC % Seg Neutrophils # Seg Neutrophils # Man Lymphocytes # (Manual) Monocytes # (Manual) PT INR APTT Fibrinogen D-Dimer ABG pH POC ABG pCO2 POC ABG pO2 ABG pO2 ABG HCO3 ABG Base Excess ABG Hemoglobin ABG Oxyhemoglobin ABG Sodium ABG Potassium ABG Chloride ABG Glucose VBG pH Oxyhemoglobin Carboxyhemoglobin Sodium Potassium Chloride Carbon Dioxide BUN Creatinine Glucose POC Glucose 125 H Random Insulin C-Peptide Lactic Acid 8.00 H* Calcium Ionized Calcium Phosphorus Magnesium AST ALT Alkaline Phosphatase Lactate Dehydrogenase NT-Pro-B Natriuret Pep Total Protein Albumin Arterial Blood Glucose Arterial Blood Ionized Calcium Urine WBC (Auto) Vancomycin Trough Phenytoin Crossmatch 10/03/20 10/04/20 10/04/20 11:50 00:40 00:40 WBC RBC Hgb 6.8 L Hct 19.4 L* MCV MCH MCHC RDW Plt Count 49 L Lymph % (Auto) [place] % (Auto) Lymph # (Auto) [place] # (Auto) Baso # (Auto) Seg Neutrophils % Seg Neuts % (Manual) Lymphocytes % (Manual) Monocytes % (Manual) Nucleated RBC % Seg Neutrophils # Seg Neutrophils # Man Lymphocytes # (Manual) Monocytes # (Manual) PT INR APTT Fibrinogen D-Dimer ABG pH 7.244 L POC ABG pCO2 POC ABG pO2 ABG pO2 ABG HCO3 ABG Base Excess -4.5 L ABG Hemoglobin 7.3 L ABG Oxyhemoglobin ABG Sodium ABG Potassium ABG Chloride ABG Glucose VBG pH Oxyhemoglobin Carboxyhemoglobin Sodium Potassium Chloride Carbon Dioxide BUN Creatinine Glucose POC Glucose Random Insulin C-Peptide Lactic Acid Calcium Ionized Calcium Phosphorus Magnesium AST ALT Alkaline Phosphatase Lactate Dehydrogenase NT-Pro-B Natriuret Pep Total Protein Albumin Arterial Blood Glucose Arterial Blood Ionized Calcium Urine WBC (Auto) Vancomycin Trough Phenytoin Crossmatch 10/04/20 10/04/20 10/04/20 03:53 10:00 10:00 WBC 14.6 H RBC 2.57 L Hgb 7.6 L Hct 22.5 L MCV MCH MCHC RDW 15.8 H Plt Count 38 L Lymph % (Auto) 7.7 L [place] % (Auto) Lymph # (Auto) 1.1 L [place] # (Auto) 0.9 H Baso # (Auto) Seg Neutrophils % 85.6 H Seg Neuts % (Manual) Lymphocytes % (Manual) Monocytes % (Manual) Nucleated RBC % Seg Neutrophils # 12.5 H Seg Neutrophils # Man Lymphocytes # (Manual) Monocytes # (Manual) PT INR APTT Fibrinogen D-Dimer ABG pH POC ABG pCO2 POC ABG pO2 110.6 H ABG pO2 ABG HCO3 ABG Base Excess ABG Hemoglobin 6.7 L ABG Oxyhemoglobin ABG Sodium 132.0 L ABG Potassium ABG Chloride ABG Glucose 111 H VBG pH Oxyhemoglobin Carboxyhemoglobin Sodium 134 L D Potassium Chloride 97.6 L Carbon Dioxide BUN Creatinine 1.7 H Glucose POC Glucose Random Insulin C-Peptide Lactic Acid Calcium 6.3 L Ionized Calcium Phosphorus Magnesium AST 203 H ALT 81 H Alkaline Phosphatase Lactate Dehydrogenase NT-Pro-B Natriuret Pep Total Protein 3.9 L Albumin 2.3 L Arterial Blood Glucose 111 H Arterial Blood Ionized Calcium 3.5 L Urine WBC (Auto) Vancomycin Trough Phenytoin Crossmatch 10/04/20 10/04/20 10/04/20 10:00 10:00 10:14 WBC RBC Hgb Hct MCV MCH MCHC RDW Plt Count Lymph % (Auto) [place] % (Auto) Lymph # (Auto) [place] # (Auto) Baso # (Auto) Seg Neutrophils % Seg Neuts % (Manual) Lymphocytes % (Manual) Monocytes % (Manual) Nucleated RBC % Seg Neutrophils # Seg Neutrophils # Man Lymphocytes # (Manual) Monocytes # (Manual) PT INR APTT Fibrinogen D-Dimer > 37122 H ABG pH POC ABG pCO2 POC ABG pO2 ABG pO2 ABG HCO3 ABG Base Excess ABG Hemoglobin ABG Oxyhemoglobin ABG Sodium ABG Potassium ABG Chloride ABG Glucose VBG pH Oxyhemoglobin Carboxyhemoglobin Sodium Potassium Chloride Carbon Dioxide BUN Creatinine Glucose POC Glucose Random Insulin C-Peptide Lactic Acid 3.90 H* Calcium Ionized Calcium Phosphorus Magnesium AST ALT Alkaline Phosphatase Lactate Dehydrogenase NT-Pro-B Natriuret Pep 2788 H Total Protein Albumin Arterial Blood Glucose Arterial Blood Ionized Calcium Urine WBC (Auto) Vancomycin Trough Phenytoin Crossmatch 1210/04/20 10/04/20 14:00 14:00 18:00 WBC 15.7 H RBC 3.17 L Hgb 9.3 L 9.6 L Hct 27.2 L 28.0 L MCV MCH MCHC RDW 16.9 H Plt Count 41 L Lymph % (Auto) 8.6 L [place] % (Auto) Lymph # (Auto) [place] # (Auto) 0.9 H Baso # (Auto) Seg Neutrophils % 85.4 H Seg Neuts % (Manual) Lymphocytes % (Manual) Monocytes % (Manual) Nucleated RBC % Seg Neutrophils # 13.4 H Seg Neutrophils # Man Lymphocytes # (Manual) Monocytes # (Manual) PT INR APTT Fibrinogen D-Dimer ABG pH POC ABG pCO2 POC ABG pO2 ABG pO2 ABG HCO3 ABG Base Excess ABG Hemoglobin ABG Oxyhemoglobin ABG Sodium ABG Potassium ABG Chloride ABG Glucose VBG pH Oxyhemoglobin Carboxyhemoglobin Sodium 133 L Potassium Chloride 96.4 L Carbon Dioxide BUN 18 H Creatinine 1.7 H Glucose POC Glucose Random Insulin C-Peptide Lactic Acid Calcium 6.3 L Ionized Calcium Phosphorus Magnesium AST ALT Alkaline Phosphatase Lactate Dehydrogenase NT-Pro-B Natriuret Pep Total Protein Albumin Arterial Blood Glucose Arterial Blood Ionized Calcium Urine WBC (Auto) Vancomycin Trough Phenytoin Crossmatch 10/04/20 10/04/20 10/05/20 18:00 22:00 05:00 WBC 17.6 H RBC 3.34 L Hgb 9.9 L Hct 29.4 L MCV MCH MCHC RDW 17.1 H Plt Count 56 L Lymph % (Auto) 8.5 L [place] % (Auto) Lymph # (Auto) [place] # (Auto) 1.0 H Baso # (Auto) Seg Neutrophils % 85.1 H Seg Neuts % (Manual) Lymphocytes % (Manual) Monocytes % (Manual) Nucleated RBC % Seg Neutrophils # 15.0 H Seg Neutrophils # Man Lymphocytes # (Manual) Monocytes # (Manual) PT INR APTT Fibrinogen D-Dimer ABG pH POC ABG pCO2 POC ABG pO2 ABG pO2 ABG HCO3 ABG Base Excess ABG Hemoglobin ABG Oxyhemoglobin ABG Sodium ABG Potassium ABG Chloride ABG Glucose VBG pH Oxyhemoglobin Carboxyhemoglobin Sodium 136 L Potassium Chloride Carbon Dioxide BUN 18 H Creatinine 1.7 H Glucose POC Glucose Random Insulin C-Peptide Lactic Acid 2.30 H* Calcium 6.6 L Ionized Calcium Phosphorus Magnesium AST ALT Alkaline Phosphatase Lactate Dehydrogenase NT-Pro-B Natriuret Pep Total Protein Albumin Arterial Blood Glucose Arterial Blood Ionized Calcium Urine WBC (Auto) Vancomycin Trough Phenytoin Crossmatch 10/05/20 10/05/20 10/05/20 05:00 05:00 05:03 WBC RBC Hgb Hct MCV MCH MCHC RDW Plt Count Lymph % (Auto) [place] % (Auto) Lymph # (Auto) [place] # (Auto) Baso # (Auto) Seg Neutrophils % Seg Neuts % (Manual) Lymphocytes % (Manual) Monocytes % (Manual) Nucleated RBC % Seg Neutrophils # Seg Neutrophils # Man Lymphocytes # (Manual) Monocytes # (Manual) PT INR APTT Fibrinogen D-Dimer ABG pH 7.458 H POC ABG pCO2 POC ABG pO2 ABG pO2 74.3 L ABG HCO3 27.5 H ABG Base Excess 3.4 H ABG Hemoglobin 10.0 L ABG Oxyhemoglobin ABG Sodium ABG Potassium ABG Chloride ABG Glucose VBG pH Oxyhemoglobin 94.9 L Carboxyhemoglobin Sodium Potassium Chloride Carbon Dioxide BUN 19 H Creatinine 1.8 H Glucose POC Glucose Random Insulin C-Peptide Lactic Acid Calcium 6.8 L Ionized Calcium 3.9 L Phosphorus Magnesium AST 225 H ALT 85 H Alkaline Phosphatase Lactate Dehydrogenase NT-Pro-B Natriuret Pep Total Protein 4.5 L Albumin 2.7 L Arterial Blood Glucose Arterial Blood Ionized Calcium Urine WBC (Auto) Vancomycin Trough Phenytoin Crossmatch 10/05/20 10/05/20 10/05/20 10:10 15:00 19:40 WBC RBC Hgb Hct MCV MCH MCHC RDW Plt Count Lymph % (Auto) [place] % (Auto) Lymph # (Auto) [place] # (Auto) Baso # (Auto) Seg Neutrophils % Seg Neuts % (Manual) Lymphocytes % (Manual) Monocytes % (Manual) Nucleated RBC % Seg Neutrophils # Seg Neutrophils # Man Lymphocytes # (Manual) Monocytes # (Manual) PT INR APTT Fibrinogen D-Dimer ABG pH POC ABG pCO2 POC ABG pO2 ABG pO2 ABG HCO3 ABG Base Excess ABG Hemoglobin ABG Oxyhemoglobin ABG Sodium ABG Potassium ABG Chloride ABG Glucose VBG pH Oxyhemoglobin Carboxyhemoglobin Sodium Potassium 3.5 L Chloride Carbon Dioxide 31 H 32 H BUN 19 H 19 H Creatinine 1.8 H 1.8 H Glucose POC Glucose Random Insulin C-Peptide Lactic Acid Calcium 7.0 L 7.2 L Ionized Calcium Phosphorus Magnesium 2.90 H AST ALT Alkaline Phosphatase Lactate Dehydrogenase NT-Pro-B Natriuret Pep Total Protein Albumin Arterial Blood Glucose Arterial Blood Ionized Calcium Urine WBC (Auto) Vancomycin Trough Phenytoin Crossmatch 10/06/20 10/06/20 10/06/20 01:05 03:12 04:00 WBC 17.1 H RBC 3.47 L Hgb Hct MCV MCH MCHC RDW 17.4 H Plt Count 82 L Lymph % (Auto) 8.3 L [place] % (Auto) Lymph # (Auto) [place] # (Auto) 1.1 H Baso # (Auto) Seg Neutrophils % 83.8 H Seg Neuts % (Manual) Lymphocytes % (Manual) Monocytes % (Manual) Nucleated RBC % Seg Neutrophils # 14.3 H Seg Neutrophils # Man Lymphocytes # (Manual) Monocytes # (Manual) PT INR APTT Fibrinogen D-Dimer ABG pH 7.474 H POC ABG pCO2 POC ABG pO2 129.5 H ABG pO2 ABG HCO3 ABG Base Excess ABG Hemoglobin 11.4 L ABG Oxyhemoglobin ABG Sodium 131.8 L ABG Potassium ABG Chloride ABG Glucose 103 H VBG pH Oxyhemoglobin Carboxyhemoglobin 0.3 L Sodium Potassium Chloride Carbon Dioxide BUN Creatinine Glucose POC Glucose Random Insulin C-Peptide Lactic Acid Calcium Ionized Calcium Phosphorus Magnesium 3.70 H AST ALT Alkaline Phosphatase Lactate Dehydrogenase NT-Pro-B Natriuret Pep Total Protein Albumin Arterial Blood Glucose 103 H Arterial Blood Ionized Calcium 4.2 L Urine WBC (Auto) Vancomycin Trough Phenytoin Crossmatch 10/06/20 10/06/20 10/06/20 04:00 05:31 08:12 WBC RBC Hgb Hct MCV MCH MCHC RDW Plt Count Lymph % (Auto) [place] % (Auto) Lymph # (Auto) [place] # (Auto) Baso # (Auto) Seg Neutrophils % Seg Neuts % (Manual) Lymphocytes % (Manual) Monocytes % (Manual) Nucleated RBC % Seg Neutrophils # Seg Neutrophils # Man Lymphocytes # (Manual) Monocytes # (Manual) PT INR APTT Fibrinogen D-Dimer ABG pH POC ABG pCO2 POC ABG pO2 ABG pO2 ABG HCO3 ABG Base Excess ABG Hemoglobin ABG Oxyhemoglobin ABG Sodium ABG Potassium ABG Chloride ABG Glucose VBG pH Oxyhemoglobin Carboxyhemoglobin Sodium Potassium 3.5 L Chloride Carbon Dioxide BUN 19 H Creatinine 1.8 H Glucose 102 H POC Glucose 116 H Random Insulin C-Peptide Lactic Acid Calcium 7.2 L Ionized Calcium Phosphorus Magnesium 5.40 H AST 307 H ALT 137 H Alkaline Phosphatase Lactate Dehydrogenase NT-Pro-B Natriuret Pep Total Protein 4.5 L Albumin 2.6 L Arterial Blood Glucose Arterial Blood Ionized Calcium Urine WBC (Auto) Vancomycin Trough Phenytoin Crossmatch 10/06/20 10/06/20 10/06/20 11:00 11:50 20:13 WBC RBC Hgb Hct MCV MCH MCHC RDW Plt Count Lymph % (Auto) [place] % (Auto) Lymph # (Auto) [place] # (Auto) Baso # (Auto) Seg Neutrophils % Seg Neuts % (Manual) Lymphocytes % (Manual) Monocytes % (Manual) Nucleated RBC % Seg Neutrophils # Seg Neutrophils # Man Lymphocytes # (Manual) Monocytes # (Manual) PT INR APTT Fibrinogen D-Dimer ABG pH POC ABG pCO2 POC ABG pO2 ABG pO2 ABG HCO3 ABG Base Excess ABG Hemoglobin ABG Oxyhemoglobin ABG Sodium ABG Potassium ABG Chloride ABG Glucose VBG pH Oxyhemoglobin Carboxyhemoglobin Sodium Potassium Chloride Carbon Dioxide BUN Creatinine Glucose POC Glucose 106 H Random Insulin C-Peptide Lactic Acid Calcium Ionized Calcium Phosphorus Magnesium 6.50 H 6.20 H AST ALT Alkaline Phosphatase Lactate Dehydrogenase NT-Pro-B Natriuret Pep Total Protein Albumin Arterial Blood Glucose Arterial Blood Ionized Calcium Urine WBC (Auto) Vancomycin Trough Phenytoin Crossmatch 10/06/20 10/06/20 10/06/20 20:17 22:29 23:57 WBC RBC Hgb Hct MCV MCH MCHC RDW Plt Count Lymph % (Auto) [place] % (Auto) Lymph # (Auto) [place] # (Auto) Baso # (Auto) Seg Neutrophils % Seg Neuts % (Manual) Lymphocytes % (Manual) Monocytes % (Manual) Nucleated RBC % Seg Neutrophils # Seg Neutrophils # Man Lymphocytes # (Manual) Monocytes # (Manual) PT INR APTT Fibrinogen D-Dimer ABG pH POC ABG pCO2 POC ABG pO2 ABG pO2 ABG HCO3 ABG Base Excess ABG Hemoglobin ABG Oxyhemoglobin ABG Sodium ABG Potassium ABG Chloride ABG Glucose VBG pH Oxyhemoglobin Carboxyhemoglobin Sodium Potassium Chloride Carbon Dioxide BUN Creatinine Glucose POC Glucose 112 H 126 H 133 H Random Insulin C-Peptide Lactic Acid Calcium Ionized Calcium Phosphorus Magnesium AST ALT Alkaline Phosphatase Lactate Dehydrogenase NT-Pro-B Natriuret Pep Total Protein Albumin Arterial Blood Glucose Arterial Blood Ionized Calcium Urine WBC (Auto) Vancomycin Trough Phenytoin Crossmatch 10/07/20 10/07/20 10/07/20 00:35 02:22 03:16 WBC RBC Hgb Hct MCV MCH MCHC RDW Plt Count Lymph % (Auto) [place] % (Auto) Lymph # (Auto) [place] # (Auto) Baso # (Auto) Seg Neutrophils % Seg Neuts % (Manual) Lymphocytes % (Manual) Monocytes % (Manual) Nucleated RBC % Seg Neutrophils # Seg Neutrophils # Man Lymphocytes # (Manual) Monocytes # (Manual) PT INR APTT Fibrinogen D-Dimer ABG pH POC ABG pCO2 POC ABG pO2 ABG pO2 ABG HCO3 ABG Base Excess ABG Hemoglobin 11.6 L ABG Oxyhemoglobin ABG Sodium ABG Potassium ABG Chloride ABG Glucose 156 H VBG pH Oxyhemoglobin Carboxyhemoglobin 0.3 L Sodium Potassium Chloride Carbon Dioxide BUN Creatinine Glucose POC Glucose 124 H Random Insulin C-Peptide Lactic Acid Calcium Ionized Calcium Phosphorus Magnesium 5.90 H AST ALT Alkaline Phosphatase Lactate Dehydrogenase NT-Pro-B Natriuret Pep Total Protein Albumin Arterial Blood Glucose 156 H Arterial Blood Ionized Calcium 4.2 L Urine WBC (Auto) Vancomycin Trough Phenytoin Crossmatch 10/07/20 10/07/20 10/07/20 04:06 05:45 07:05 WBC 19.2 H RBC 3.57 L Hgb Hct MCV MCH MCHC 35 H RDW 17.1 H Plt Count 129 L Lymph % (Auto) [place] % (Auto) Lymph # (Auto) [place] # (Auto) Baso # (Auto) Seg Neutrophils % Seg Neuts % (Manual) 94.0 H Lymphocytes % (Manual) 6.0 L Monocytes % (Manual) Nucleated RBC % Seg Neutrophils # Seg Neutrophils # Man 18.0 H Lymphocytes # (Manual) Monocytes # (Manual) PT INR APTT Fibrinogen D-Dimer ABG pH POC ABG pCO2 POC ABG pO2 ABG pO2 ABG HCO3 ABG Base Excess ABG Hemoglobin ABG Oxyhemoglobin ABG Sodium ABG Potassium ABG Chloride ABG Glucose VBG pH Oxyhemoglobin Carboxyhemoglobin Sodium Potassium Chloride Carbon Dioxide BUN Creatinine Glucose POC Glucose 135 H 149 H Random Insulin C-Peptide Lactic Acid Calcium Ionized Calcium Phosphorus Magnesium AST ALT Alkaline Phosphatase Lactate Dehydrogenase NT-Pro-B Natriuret Pep Total Protein Albumin Arterial Blood Glucose Arterial Blood Ionized Calcium Urine WBC (Auto) Vancomycin Trough Phenytoin Crossmatch 10/07/20 10/07/20 10/07/20 07:05 07:05 12:21 WBC RBC Hgb Hct MCV MCH MCHC RDW Plt Count Lymph % (Auto) [place] % (Auto) Lymph # (Auto) [place] # (Auto) Baso # (Auto) Seg Neutrophils % Seg Neuts % (Manual) Lymphocytes % (Manual) Monocytes % (Manual) Nucleated RBC % Seg Neutrophils # Seg Neutrophils # Man Lymphocytes # (Manual) Monocytes # (Manual) PT INR APTT Fibrinogen D-Dimer ABG pH POC ABG pCO2 POC ABG pO2 ABG pO2 ABG HCO3 ABG Base Excess ABG Hemoglobin ABG Oxyhemoglobin ABG Sodium ABG Potassium ABG Chloride ABG Glucose VBG pH Oxyhemoglobin Carboxyhemoglobin Sodium Potassium Chloride Carbon Dioxide BUN 21 H Creatinine 1.7 H Glucose 171 H POC Glucose 124 H Random Insulin C-Peptide Lactic Acid Calcium 7.4 L Ionized Calcium Phosphorus Magnesium 6.10 H AST 245 H ALT 147 H Alkaline Phosphatase Lactate Dehydrogenase NT-Pro-B Natriuret Pep Total Protein 5.3 L Albumin 2.8 L Arterial Blood Glucose Arterial Blood Ionized Calcium Urine WBC (Auto) Vancomycin Trough Phenytoin Crossmatch 10/07/20 10/07/20 10/07/20 19:52 21:00 21:50 WBC RBC Hgb Hct MCV MCH MCHC RDW Plt Count Lymph % (Auto) [place] % (Auto) Lymph # (Auto) [place] # (Auto) Baso # (Auto) Seg Neutrophils % Seg Neuts % (Manual) Lymphocytes % (Manual) Monocytes % (Manual) Nucleated RBC % Seg Neutrophils # Seg Neutrophils # Man Lymphocytes # (Manual) Monocytes # (Manual) PT INR APTT Fibrinogen D-Dimer ABG pH POC ABG pCO2 POC ABG pO2 ABG pO2 ABG HCO3 ABG Base Excess ABG Hemoglobin ABG Oxyhemoglobin ABG Sodium ABG Potassium ABG Chloride ABG Glucose VBG pH Oxyhemoglobin Carboxyhemoglobin Sodium Potassium Chloride Carbon Dioxide BUN Creatinine Glucose POC Glucose 193 H 138 H Random Insulin C-Peptide Lactic Acid Calcium Ionized Calcium 4.4 L Phosphorus Magnesium AST ALT Alkaline Phosphatase Lactate Dehydrogenase NT-Pro-B Natriuret Pep Total Protein Albumin Arterial Blood Glucose Arterial Blood Ionized Calcium Urine WBC (Auto) Vancomycin Trough Phenytoin Crossmatch 10/07/20 10/08/20 10/08/20 23:41 04:20 05:30 WBC RBC Hgb Hct MCV MCH MCHC RDW Plt Count Lymph % (Auto) [place] % (Auto) Lymph # (Auto) [place] # (Auto) Baso # (Auto) Seg Neutrophils % Seg Neuts % (Manual) Lymphocytes % (Manual) Monocytes % (Manual) Nucleated RBC % Seg Neutrophils # Seg Neutrophils # Man Lymphocytes # (Manual) Monocytes # (Manual) PT INR APTT Fibrinogen D-Dimer ABG pH 7.467 H POC ABG pCO2 POC ABG pO2 189.8 H ABG pO2 ABG HCO3 ABG Base Excess ABG Hemoglobin 10.8 L ABG Oxyhemoglobin ABG Sodium ABG Potassium ABG Chloride ABG Glucose 133 H VBG pH Oxyhemoglobin Carboxyhemoglobin Sodium Potassium Chloride Carbon Dioxide BUN Creatinine Glucose POC Glucose 118 H 114 H Random Insulin C-Peptide Lactic Acid Calcium Ionized Calcium Phosphorus Magnesium AST ALT Alkaline Phosphatase Lactate Dehydrogenase NT-Pro-B Natriuret Pep Total Protein Albumin Arterial Blood Glucose 133 H Arterial Blood Ionized Calcium 4.2 L Urine WBC (Auto) Vancomycin Trough Phenytoin Crossmatch 10/08/20 10/08/20 10/08/20 05:43 06:42 06:42 WBC 23.6 H RBC 3.54 L Hgb Hct MCV MCH MCHC RDW 17.8 H Plt Count Lymph % (Auto) [place] % (Auto) Lymph # (Auto) [place] # (Auto) Baso # (Auto) Seg Neutrophils % Seg Neuts % (Manual) 93.0 H Lymphocytes % (Manual) 3.0 L Monocytes % (Manual) Nucleated RBC % 1.0 H Seg Neutrophils # Seg Neutrophils # Man 21.9 H Lymphocytes # (Manual) 0.7 L Monocytes # (Manual) 0.9 H PT INR APTT Fibrinogen D-Dimer ABG pH POC ABG pCO2 POC ABG pO2 ABG pO2 ABG HCO3 ABG Base Excess ABG Hemoglobin ABG Oxyhemoglobin ABG Sodium ABG Potassium ABG Chloride ABG Glucose VBG pH Oxyhemoglobin Carboxyhemoglobin Sodium Potassium Chloride Carbon Dioxide BUN 28 H Creatinine 1.6 H Glucose 141 H POC Glucose 126 H Random Insulin C-Peptide Lactic Acid Calcium 7.6 L Ionized Calcium Phosphorus Magnesium AST 162 H ALT 103 H Alkaline Phosphatase Lactate Dehydrogenase NT-Pro-B Natriuret Pep Total Protein 5.4 L Albumin 2.7 L Arterial Blood Glucose Arterial Blood Ionized Calcium Urine WBC (Auto) Vancomycin Trough Phenytoin Crossmatch 10/08/20 10/08/20 10/08/20 11:20 16:05 20:14 WBC RBC Hgb Hct MCV MCH MCHC RDW Plt Count Lymph % (Auto) [place] % (Auto) Lymph # (Auto) [place] # (Auto) Baso # (Auto) Seg Neutrophils % Seg Neuts % (Manual) Lymphocytes % (Manual) Monocytes % (Manual) Nucleated RBC % Seg Neutrophils # Seg Neutrophils # Man Lymphocytes # (Manual) Monocytes # (Manual) PT INR APTT Fibrinogen D-Dimer ABG pH POC ABG pCO2 POC ABG pO2 ABG pO2 ABG HCO3 ABG Base Excess ABG Hemoglobin ABG Oxyhemoglobin ABG Sodium ABG Potassium ABG Chloride ABG Glucose VBG pH Oxyhemoglobin Carboxyhemoglobin Sodium Potassium Chloride Carbon Dioxide BUN Creatinine Glucose POC Glucose 127 H 172 H 147 H Random Insulin C-Peptide Lactic Acid Calcium Ionized Calcium Phosphorus Magnesium AST ALT Alkaline Phosphatase Lactate Dehydrogenase NT-Pro-B Natriuret Pep Total Protein Albumin Arterial Blood Glucose Arterial Blood Ionized Calcium Urine WBC (Auto) Vancomycin Trough Phenytoin Crossmatch 10/08/20 10/08/20 10/09/20 21:27 23:24 02:10 WBC RBC Hgb Hct MCV MCH MCHC RDW Plt Count Lymph % (Auto) [place] % (Auto) Lymph # (Auto) [place] # (Auto) Baso # (Auto) Seg Neutrophils % Seg Neuts % (Manual) Lymphocytes % (Manual) Monocytes % (Manual) Nucleated RBC % Seg Neutrophils # Seg Neutrophils # Man Lymphocytes # (Manual) Monocytes # (Manual) PT INR APTT Fibrinogen D-Dimer ABG pH POC ABG pCO2 POC ABG pO2 ABG pO2 ABG HCO3 ABG Base Excess ABG Hemoglobin ABG Oxyhemoglobin ABG Sodium ABG Potassium ABG Chloride ABG Glucose VBG pH Oxyhemoglobin Carboxyhemoglobin Sodium Potassium Chloride Carbon Dioxide BUN Creatinine Glucose POC Glucose 140 H 135 H 111 H Random Insulin C-Peptide Lactic Acid Calcium Ionized Calcium Phosphorus Magnesium AST ALT Alkaline Phosphatase Lactate Dehydrogenase NT-Pro-B Natriuret Pep Total Protein Albumin Arterial Blood Glucose Arterial Blood Ionized Calcium Urine WBC (Auto) Vancomycin Trough Phenytoin Crossmatch 10/09/20 10/09/20 10/09/20 03:44 04:39 05:46 WBC 19.7 H RBC 3.51 L Hgb Hct MCV MCH MCHC RDW 17.7 H Plt Count Lymph % (Auto) [place] % (Auto) Lymph # (Auto) [place] # (Auto) Baso # (Auto) Seg Neutrophils % Seg Neuts % (Manual) 86.0 H Lymphocytes % (Manual) 4.0 L Monocytes % (Manual) 9.0 H Nucleated RBC % Seg Neutrophils # Seg Neutrophils # Man 16.9 H Lymphocytes # (Manual) 0.8 L Monocytes # (Manual) 1.8 H PT INR APTT Fibrinogen D-Dimer ABG pH 7.513 H POC ABG pCO2 POC ABG pO2 33.6 L ABG pO2 ABG HCO3 ABG Base Excess ABG Hemoglobin 11.1 L ABG Oxyhemoglobin 70.2 L ABG Sodium ABG Potassium 3.2 L ABG Chloride 108.0 H ABG Glucose 108 H VBG pH Oxyhemoglobin Carboxyhemoglobin Sodium Potassium Chloride Carbon Dioxide BUN Creatinine Glucose POC Glucose 109 H Random Insulin C-Peptide Lactic Acid Calcium Ionized Calcium Phosphorus Magnesium AST ALT Alkaline Phosphatase Lactate Dehydrogenase NT-Pro-B Natriuret Pep Total Protein Albumin Arterial Blood Glucose 108 H Arterial Blood Ionized Calcium 4.3 L Urine WBC (Auto) Vancomycin Trough Phenytoin Crossmatch 10/09/20 10/10/20 10/10/20 05:46 04:00 04:00 WBC 18.4 H RBC Hgb Hct MCV MCH MCHC RDW 17.5 H Plt Count Lymph % (Auto) 9.8 L [place] % (Auto) 8.8 H Lymph # (Auto) [place] # (Auto) 1.6 H Baso # (Auto) Seg Neutrophils % 80.0 H Seg Neuts % (Manual) Lymphocytes % (Manual) Monocytes % (Manual) Nucleated RBC % Seg Neutrophils # 14.7 H Seg Neutrophils # Man Lymphocytes # (Manual) Monocytes # (Manual) PT INR APTT Fibrinogen D-Dimer ABG pH POC ABG pCO2 POC ABG pO2 ABG pO2 ABG HCO3 ABG Base Excess ABG Hemoglobin ABG Oxyhemoglobin ABG Sodium ABG Potassium ABG Chloride ABG Glucose VBG pH Oxyhemoglobin Carboxyhemoglobin Sodium 146 H Potassium 3.2 L 2.9 L* Chloride 108.9 H 112.6 H Carbon Dioxide BUN 34 H 28 H Creatinine 1.4 H 1.3 H Glucose 109 H 101 H POC Glucose Random Insulin C-Peptide Lactic Acid Calcium 7.6 L 7.8 L Ionized Calcium Phosphorus Magnesium AST 137 H 122 H ALT 99 H 81 H Alkaline Phosphatase Lactate Dehydrogenase NT-Pro-B Natriuret Pep Total Protein 5.1 L 5.2 L Albumin 2.6 L 2.7 L Arterial Blood Glucose Arterial Blood Ionized Calcium Urine WBC (Auto) Vancomycin Trough Phenytoin Crossmatch 10/10/20 10/10/20 10/11/20 04:42 09:50 00:44 WBC RBC Hgb Hct MCV MCH MCHC RDW Plt Count Lymph % (Auto) [place] % (Auto) Lymph # (Auto) [place] # (Auto) Baso # (Auto) Seg Neutrophils % Seg Neuts % (Manual) Lymphocytes % (Manual) Monocytes % (Manual) Nucleated RBC % Seg Neutrophils # Seg Neutrophils # Man Lymphocytes # (Manual) Monocytes # (Manual) PT INR APTT Fibrinogen D-Dimer ABG pH 7.534 H POC ABG pCO2 POC ABG pO2 ABG pO2 95.2 H ABG HCO3 ABG Base Excess ABG Hemoglobin 11.3 L ABG Oxyhemoglobin ABG Sodium ABG Potassium ABG Chloride ABG Glucose VBG pH Oxyhemoglobin Carboxyhemoglobin Sodium Potassium Chloride Carbon Dioxide BUN Creatinine Glucose POC Glucose 109 H 106 H Random Insulin C-Peptide Lactic Acid Calcium Ionized Calcium Phosphorus Magnesium AST ALT Alkaline Phosphatase Lactate Dehydrogenase NT-Pro-B Natriuret Pep Total Protein Albumin Arterial Blood Glucose Arterial Blood Ionized Calcium Urine WBC (Auto) Vancomycin Trough Phenytoin Crossmatch 10/11/20 10/11/20 10/11/20 04:00 04:00 06:08 WBC 27.0 H RBC Hgb Hct MCV MCH MCHC RDW 17.7 H Plt Count Lymph % (Auto) 6.3 L [place] % (Auto) Lymph # (Auto) [place] # (Auto) 1.5 H Baso # (Auto) Seg Neutrophils % 87.1 H Seg Neuts % (Manual) Lymphocytes % (Manual) Monocytes % (Manual) Nucleated RBC % Seg Neutrophils # 23.5 H Seg Neutrophils # Man Lymphocytes # (Manual) Monocytes # (Manual) PT INR APTT Fibrinogen D-Dimer ABG pH POC ABG pCO2 POC ABG pO2 ABG pO2 ABG HCO3 ABG Base Excess ABG Hemoglobin ABG Oxyhemoglobin ABG Sodium ABG Potassium ABG Chloride ABG Glucose VBG pH Oxyhemoglobin Carboxyhemoglobin Sodium Potassium 3.2 L Chloride 110.4 H Carbon Dioxide 19 L BUN 22 H Creatinine Glucose 116 H POC Glucose 107 H Random Insulin C-Peptide Lactic Acid Calcium 7.7 L Ionized Calcium Phosphorus Magnesium 1.60 L AST ALT Alkaline Phosphatase Lactate Dehydrogenase NT-Pro-B Natriuret Pep Total Protein Albumin Arterial Blood Glucose Arterial Blood Ionized Calcium Urine WBC (Auto) Vancomycin Trough Phenytoin Crossmatch 10/11/20 10/11/20 10/12/20 11:41 13:26 03:52 WBC RBC Hgb Hct MCV MCH MCHC RDW Plt Count Lymph % (Auto) [place] % (Auto) Lymph # (Auto) [place] # (Auto) Baso # (Auto) Seg Neutrophils % Seg Neuts % (Manual) Lymphocytes % (Manual) Monocytes % (Manual) Nucleated RBC % Seg Neutrophils # Seg Neutrophils # Man Lymphocytes # (Manual) Monocytes # (Manual) PT INR APTT Fibrinogen D-Dimer ABG pH POC ABG pCO2 POC ABG pO2 ABG pO2 ABG HCO3 ABG Base Excess ABG Hemoglobin ABG Oxyhemoglobin ABG Sodium ABG Potassium ABG Chloride ABG Glucose VBG pH Oxyhemoglobin Carboxyhemoglobin Sodium Potassium Chloride Carbon Dioxide BUN Creatinine Glucose POC Glucose 116 H 114 H Random Insulin C-Peptide Lactic Acid Calcium Ionized Calcium Phosphorus Magnesium AST ALT Alkaline Phosphatase Lactate Dehydrogenase NT-Pro-B Natriuret Pep Total Protein Albumin Arterial Blood Glucose Arterial Blood Ionized Calcium Urine WBC (Auto) 24.0 H Vancomycin Trough Phenytoin Crossmatch 10/12/20 10/12/20 10/12/20 04:24 14:47 21:33 WBC RBC Hgb Hct MCV MCH MCHC RDW Plt Count Lymph % (Auto) [place] % (Auto) Lymph # (Auto) [place] # (Auto) Baso # (Auto) Seg Neutrophils % Seg Neuts % (Manual) Lymphocytes % (Manual) Monocytes % (Manual) Nucleated RBC % Seg Neutrophils # Seg Neutrophils # Man Lymphocytes # (Manual) Monocytes # (Manual) PT INR APTT Fibrinogen D-Dimer ABG pH POC ABG pCO2 POC ABG pO2 ABG pO2 ABG HCO3 ABG Base Excess ABG Hemoglobin ABG Oxyhemoglobin ABG Sodium ABG Potassium ABG Chloride ABG Glucose VBG pH Oxyhemoglobin Carboxyhemoglobin Sodium Potassium Chloride 109.9 H Carbon Dioxide 13 L BUN 18 H Creatinine Glucose 119 H POC Glucose 107 H Random Insulin C-Peptide Lactic Acid Calcium 7.6 L Ionized Calcium Phosphorus Magnesium 1.60 L AST ALT Alkaline Phosphatase Lactate Dehydrogenase NT-Pro-B Natriuret Pep Total Protein Albumin Arterial Blood Glucose Arterial Blood Ionized Calcium Urine WBC (Auto) Vancomycin Trough Phenytoin Crossmatch 10/12/20 10/12/20 10/13/20 Unknown Unknown 07:00 WBC 24.3 H RBC 3.38 L Hgb 9.8 L Hct MCV MCH MCHC RDW 18.7 H Plt Count Lymph % (Auto) [place] % (Auto) Lymph # (Auto) [place] # (Auto) Baso # (Auto) Seg Neutrophils % Seg Neuts % (Manual) 93.5 H Lymphocytes % (Manual) 4.5 L Monocytes % (Manual) Nucleated RBC % Seg Neutrophils # Seg Neutrophils # Man 22.7 H Lymphocytes # (Manual) 1.1 L Monocytes # (Manual) PT INR APTT Fibrinogen D-Dimer ABG pH POC ABG pCO2 POC ABG pO2 ABG pO2 ABG HCO3 ABG Base Excess ABG Hemoglobin ABG Oxyhemoglobin ABG Sodium ABG Potassium ABG Chloride ABG Glucose VBG pH Oxyhemoglobin Carboxyhemoglobin Sodium 135 L D Potassium 3.1 L Chloride Carbon Dioxide 17 L BUN Creatinine Glucose 510 H* POC Glucose Random Insulin C-Peptide Lactic Acid Calcium 7.2 L Ionized Calcium Phosphorus Magnesium AST ALT Alkaline Phosphatase Lactate Dehydrogenase NT-Pro-B Natriuret Pep Total Protein Albumin Arterial Blood Glucose Arterial Blood Ionized Calcium Urine WBC (Auto) Vancomycin Trough Phenytoin 5.7 L Crossmatch 10/13/20 10/13/20 10/13/20 07:00 07:00 07:18 WBC 23.6 H RBC 3.26 L Hgb 9.4 L Hct 28.7 L MCV MCH MCHC RDW 18.3 H Plt Count Lymph % (Auto) [place] % (Auto) Lymph # (Auto) [place] # (Auto) Baso # (Auto) Seg Neutrophils % Seg Neuts % (Manual) Lymphocytes % (Manual) Monocytes % (Manual) Nucleated RBC % Seg Neutrophils # Seg Neutrophils # Man Lymphocytes # (Manual) Monocytes # (Manual) PT INR APTT Fibrinogen D-Dimer ABG pH 7.473 H POC ABG pCO2 20.7 L POC ABG pO2 137.9 H ABG pO2 ABG HCO3 ABG Base Excess ABG Hemoglobin 11.2 L ABG Oxyhemoglobin 98.3 H ABG Sodium 135.9 L ABG Potassium ABG Chloride 111.0 H ABG Glucose 109 H VBG pH Oxyhemoglobin Carboxyhemoglobin 0.3 L Sodium 135 L Potassium 3.5 L Chloride 109.1 H Carbon Dioxide 18 L BUN Creatinine Glucose POC Glucose Random Insulin C-Peptide Lactic Acid Calcium 7.3 L Ionized Calcium Phosphorus Magnesium 1.60 L AST ALT Alkaline Phosphatase Lactate Dehydrogenase NT-Pro-B Natriuret Pep Total Protein Albumin Arterial Blood Glucose 109 H Arterial Blood Ionized Calcium Urine WBC (Auto) Vancomycin Trough Phenytoin Crossmatch 10/14/20 10/14/20 10/15/20 04:00 04:00 05:50 WBC 28.6 H 23.2 H RBC 3.61 L 3.43 L Hgb 9.9 L Hct 30.0 L MCV MCH MCHC RDW 18.3 H 18.2 H Plt Count Lymph % (Auto) [place] % (Auto) Lymph # (Auto) [place] # (Auto) Baso # (Auto) Seg Neutrophils % Seg Neuts % (Manual) 88.0 H 90.0 H Lymphocytes % (Manual) 5.0 L 4.0 L Monocytes % (Manual) Nucleated RBC % Seg Neutrophils # Seg Neutrophils # Man 25.2 H 20.9 H Lymphocytes # (Manual) 0.9 L Monocytes # (Manual) 1.4 H 0.9 H PT INR APTT Fibrinogen D-Dimer ABG pH POC ABG pCO2 POC ABG pO2 ABG pO2 ABG HCO3 ABG Base Excess ABG Hemoglobin ABG Oxyhemoglobin ABG Sodium ABG Potassium ABG Chloride ABG Glucose VBG pH Oxyhemoglobin Carboxyhemoglobin Sodium Potassium Chloride 109.9 H Carbon Dioxide 17 L BUN Creatinine Glucose POC Glucose Random Insulin C-Peptide Lactic Acid Calcium Ionized Calcium Phosphorus Magnesium AST ALT Alkaline Phosphatase Lactate Dehydrogenase NT-Pro-B Natriuret Pep Total Protein Albumin Arterial Blood Glucose Arterial Blood Ionized Calcium Urine WBC (Auto) Vancomycin Trough Phenytoin Crossmatch 10/15/20 10/16/20 10/17/20 05:50 11:57 04:57 WBC 15.2 H RBC 3.43 L Hgb Hct MCV MCH MCHC RDW 18.1 H Plt Count Lymph % (Auto) [place] % (Auto) Lymph # (Auto) [place] # (Auto) Baso # (Auto) Seg Neutrophils % Seg Neuts % (Manual) Lymphocytes % (Manual) Monocytes % (Manual) Nucleated RBC % Seg Neutrophils # Seg Neutrophils # Man Lymphocytes # (Manual) Monocytes # (Manual) PT INR APTT Fibrinogen D-Dimer ABG pH POC ABG pCO2 POC ABG pO2 ABG pO2 ABG HCO3 ABG Base Excess ABG Hemoglobin ABG Oxyhemoglobin ABG Sodium ABG Potassium ABG Chloride ABG Glucose VBG pH Oxyhemoglobin Carboxyhemoglobin Sodium Potassium Chloride 110.3 H Carbon Dioxide 18 L BUN Creatinine Glucose 105 H POC Glucose 111 H Random Insulin C-Peptide Lactic Acid Calcium 8.3 L Ionized Calcium Phosphorus Magnesium AST ALT Alkaline Phosphatase Lactate Dehydrogenase NT-Pro-B Natriuret Pep Total Protein Albumin Arterial Blood Glucose Arterial Blood Ionized Calcium Urine WBC (Auto) Vancomycin Trough Phenytoin Crossmatch 10/17/20 10/17/20 10/18/20 05:25 21:16 01:31 WBC RBC Hgb Hct MCV MCH MCHC RDW Plt Count Lymph % (Auto) [place] % (Auto) Lymph # (Auto) [place] # (Auto) Baso # (Auto) Seg Neutrophils % Seg Neuts % (Manual) Lymphocytes % (Manual) Monocytes % (Manual) Nucleated RBC % Seg Neutrophils # Seg Neutrophils # Man Lymphocytes # (Manual) Monocytes # (Manual) PT INR APTT Fibrinogen D-Dimer ABG pH POC ABG pCO2 POC ABG pO2 ABG pO2 ABG HCO3 ABG Base Excess ABG Hemoglobin ABG Oxyhemoglobin ABG Sodium ABG Potassium ABG Chloride ABG Glucose VBG pH Oxyhemoglobin Carboxyhemoglobin Sodium Potassium Chloride Carbon Dioxide BUN Creatinine Glucose POC Glucose 107 H 106 H 119 H Random Insulin C-Peptide Lactic Acid Calcium Ionized Calcium Phosphorus Magnesium AST ALT Alkaline Phosphatase Lactate Dehydrogenase NT-Pro-B Natriuret Pep Total Protein Albumin Arterial Blood Glucose Arterial Blood Ionized Calcium Urine WBC (Auto) Vancomycin Trough Phenytoin Crossmatch 10/18/20 10/18/20 10/19/20 05:45 11:23 01:14 WBC RBC Hgb Hct MCV MCH MCHC RDW Plt Count Lymph % (Auto) [place] % (Auto) Lymph # (Auto) [place] # (Auto) Baso # (Auto) Seg Neutrophils % Seg Neuts % (Manual) Lymphocytes % (Manual) Monocytes % (Manual) Nucleated RBC % Seg Neutrophils # Seg Neutrophils # Man Lymphocytes # (Manual) Monocytes # (Manual) PT INR APTT Fibrinogen D-Dimer ABG pH POC ABG pCO2 POC ABG pO2 ABG pO2 ABG HCO3 ABG Base Excess ABG Hemoglobin ABG Oxyhemoglobin ABG Sodium ABG Potassium ABG Chloride ABG Glucose VBG pH Oxyhemoglobin Carboxyhemoglobin Sodium Potassium Chloride Carbon Dioxide BUN Creatinine Glucose POC Glucose 106 H 115 H 108 H Random Insulin C-Peptide Lactic Acid Calcium Ionized Calcium Phosphorus Magnesium AST ALT Alkaline Phosphatase Lactate Dehydrogenase NT-Pro-B Natriuret Pep Total Protein Albumin Arterial Blood Glucose Arterial Blood Ionized Calcium Urine WBC (Auto) Vancomycin Trough Phenytoin Crossmatch 10/19/20 10/20/20 10/20/20 09:57 05:40 07:59 WBC RBC Hgb Hct MCV MCH MCHC RDW Plt Count Lymph % (Auto) [place] % (Auto) Lymph # (Auto) [place] # (Auto) Baso # (Auto) Seg Neutrophils % Seg Neuts % (Manual) Lymphocytes % (Manual) Monocytes % (Manual) Nucleated RBC % Seg Neutrophils # Seg Neutrophils # Man Lymphocytes # (Manual) Monocytes # (Manual) PT INR APTT Fibrinogen D-Dimer ABG pH POC ABG pCO2 POC ABG pO2 ABG pO2 ABG HCO3 ABG Base Excess ABG Hemoglobin ABG Oxyhemoglobin ABG Sodium ABG Potassium ABG Chloride ABG Glucose VBG pH Oxyhemoglobin Carboxyhemoglobin Sodium Potassium Chloride Carbon Dioxide BUN Creatinine Glucose 106 H POC Glucose 122 H 109 H Random Insulin C-Peptide Lactic Acid Calcium Ionized Calcium Phosphorus Magnesium AST ALT Alkaline Phosphatase Lactate Dehydrogenase NT-Pro-B Natriuret Pep Total Protein Albumin Arterial Blood Glucose Arterial Blood Ionized Calcium Urine WBC (Auto) Vancomycin Trough Phenytoin Crossmatch 10/20/20 10/20/20 10/21/20 16:52 16:52 13:54 WBC 18.8 H 17.0 H RBC Hgb Hct MCV MCH MCHC RDW 17.7 H 17.8 H Plt Count 547 H 544 H Lymph % (Auto) 11.2 L [place] % (Auto) 8.1 H Lymph # (Auto) [place] # (Auto) 1.5 H Baso # (Auto) 0.2 H Seg Neutrophils % 78.8 H Seg Neuts % (Manual) Lymphocytes % (Manual) Monocytes % (Manual) Nucleated RBC % Seg Neutrophils # 14.8 H Seg Neutrophils # Man Lymphocytes # (Manual) Monocytes # (Manual) PT INR APTT Fibrinogen D-Dimer ABG pH POC ABG pCO2 POC ABG pO2 ABG pO2 ABG HCO3 ABG Base Excess ABG Hemoglobin ABG Oxyhemoglobin ABG Sodium ABG Potassium ABG Chloride ABG Glucose VBG pH Oxyhemoglobin Carboxyhemoglobin Sodium Potassium Chloride Carbon Dioxide BUN Creatinine Glucose POC Glucose Random Insulin C-Peptide Lactic Acid Calcium Ionized Calcium Phosphorus Magnesium AST ALT Alkaline Phosphatase Lactate Dehydrogenase NT-Pro-B Natriuret Pep Total Protein Albumin Arterial Blood Glucose Arterial Blood Ionized Calcium Urine WBC (Auto) Vancomycin Trough 34.5 H Phenytoin Crossmatch 10/21/20 10/22/20 10/23/20 13:54 07:26 05:34 WBC 18.7 H 13.0 H RBC 3.64 L 3.50 L Hgb Hct 30.0 L MCV MCH MCHC 35 H RDW 17.7 H 17.6 H Plt Count 502 H 503 H Lymph % (Auto) [place] % (Auto) Lymph # (Auto) [place] # (Auto) Baso # (Auto) Seg Neutrophils % Seg Neuts % (Manual) Lymphocytes % (Manual) Monocytes % (Manual) Nucleated RBC % Seg Neutrophils # Seg Neutrophils # Man Lymphocytes # (Manual) Monocytes # (Manual) PT INR APTT Fibrinogen D-Dimer ABG pH POC ABG pCO2 POC ABG pO2 ABG pO2 ABG HCO3 ABG Base Excess ABG Hemoglobin ABG Oxyhemoglobin ABG Sodium ABG Potassium ABG Chloride ABG Glucose VBG pH Oxyhemoglobin Carboxyhemoglobin Sodium 136 L Potassium Chloride Carbon Dioxide BUN Creatinine Glucose 120 H POC Glucose Random Insulin C-Peptide Lactic Acid Calcium Ionized Calcium Phosphorus Magnesium AST ALT Alkaline Phosphatase Lactate Dehydrogenase NT-Pro-B Natriuret Pep Total Protein Albumin Arterial Blood Glucose Arterial Blood Ionized Calcium Urine WBC (Auto) Vancomycin Trough Phenytoin Crossmatch 10/23/20 10/26/20 10/27/20 05:34 10:30 07:53 WBC 13.6 H RBC 3.38 L Hgb 10.0 L Hct 28.8 L MCV MCH MCHC 35 H RDW 17.6 H Plt Count Lymph % (Auto) [place] % (Auto) Lymph # (Auto) [place] # (Auto) Baso # (Auto) Seg Neutrophils % Seg Neuts % (Manual) Lymphocytes % (Manual) Monocytes % (Manual) Nucleated RBC % Seg Neutrophils # Seg Neutrophils # Man Lymphocytes # (Manual) Monocytes # (Manual) PT INR APTT Fibrinogen D-Dimer ABG pH 7.459 H POC ABG pCO2 POC ABG pO2 ABG pO2 112.2 H ABG HCO3 ABG Base Excess ABG Hemoglobin ABG Oxyhemoglobin ABG Sodium ABG Potassium ABG Chloride ABG Glucose VBG pH Oxyhemoglobin Carboxyhemoglobin Sodium 135 L Potassium Chloride Carbon Dioxide BUN Creatinine Glucose 105 H POC Glucose Random Insulin C-Peptide Lactic Acid Calcium Ionized Calcium Phosphorus Magnesium AST ALT Alkaline Phosphatase Lactate Dehydrogenase NT-Pro-B Natriuret Pep Total Protein Albumin Arterial Blood Glucose Arterial Blood Ionized Calcium Urine WBC (Auto) Vancomycin Trough Phenytoin Crossmatch 10/27/20 10/27/20 10/28/20 07:53 11:31 05:19 WBC RBC Hgb Hct MCV MCH MCHC RDW Plt Count Lymph % (Auto) [place] % (Auto) Lymph # (Auto) [place] # (Auto) Baso # (Auto) Seg Neutrophils % Seg Neuts % (Manual) Lymphocytes % (Manual) Monocytes % (Manual) Nucleated RBC % Seg Neutrophils # Seg Neutrophils # Man Lymphocytes # (Manual) Monocytes # (Manual) PT INR APTT Fibrinogen D-Dimer ABG pH POC ABG pCO2 POC ABG pO2 ABG pO2 ABG HCO3 ABG Base Excess ABG Hemoglobin ABG Oxyhemoglobin ABG Sodium ABG Potassium ABG Chloride ABG Glucose VBG pH Oxyhemoglobin Carboxyhemoglobin Sodium Potassium Chloride Carbon Dioxide BUN 20 H Creatinine Glucose 112 H POC Glucose 113 H 112 H Random Insulin C-Peptide Lactic Acid Calcium Ionized Calcium Phosphorus Magnesium AST 83 H ALT Alkaline Phosphatase Lactate Dehydrogenase NT-Pro-B Natriuret Pep Total Protein Albumin 3.8 L Arterial Blood Glucose Arterial Blood Ionized Calcium Urine WBC (Auto) Vancomycin Trough Phenytoin Crossmatch 10/29/20 10/29/20 10/29/20 07:56 07:56 11:37 WBC 13.6 H RBC Hgb Hct MCV MCH MCHC RDW 17.0 H Plt Count Lymph % (Auto) [place] % (Auto) Lymph # (Auto) [place] # (Auto) Baso # (Auto) Seg Neutrophils % Seg Neuts % (Manual) 80.0 H Lymphocytes % (Manual) Monocytes % (Manual) Nucleated RBC % Seg Neutrophils # Seg Neutrophils # Man 10.9 H Lymphocytes # (Manual) Monocytes # (Manual) PT INR APTT Fibrinogen D-Dimer ABG pH POC ABG pCO2 POC ABG pO2 ABG pO2 ABG HCO3 ABG Base Excess ABG Hemoglobin ABG Oxyhemoglobin ABG Sodium ABG Potassium ABG Chloride ABG Glucose VBG pH Oxyhemoglobin Carboxyhemoglobin Sodium Potassium Chloride Carbon Dioxide BUN Creatinine Glucose POC Glucose 108 H Random Insulin C-Peptide Lactic Acid Calcium Ionized Calcium Phosphorus 4.70 H Magnesium AST ALT Alkaline Phosphatase Lactate Dehydrogenase NT-Pro-B Natriuret Pep Total Protein Albumin Arterial Blood Glucose Arterial Blood Ionized Calcium Urine WBC (Auto) Vancomycin Trough Phenytoin Crossmatch 10/29/20 10/30/20 10/30/20 13:32 12:11 17:19 WBC RBC Hgb Hct MCV MCH MCHC RDW Plt Count Lymph % (Auto) [place] % (Auto) Lymph # (Auto) [place] # (Auto) Baso # (Auto) Seg Neutrophils % Seg Neuts % (Manual) Lymphocytes % (Manual) Monocytes % (Manual) Nucleated RBC % Seg Neutrophils # Seg Neutrophils # Man Lymphocytes # (Manual) Monocytes # (Manual) PT INR APTT Fibrinogen D-Dimer ABG pH POC ABG pCO2 POC ABG pO2 ABG pO2 ABG HCO3 ABG Base Excess ABG Hemoglobin ABG Oxyhemoglobin ABG Sodium ABG Potassium ABG Chloride ABG Glucose VBG pH Oxyhemoglobin Carboxyhemoglobin Sodium Potassium Chloride Carbon Dioxide BUN Creatinine Glucose POC Glucose 108 H 106 H 107 H Random Insulin C-Peptide Lactic Acid Calcium Ionized Calcium Phosphorus Magnesium AST ALT Alkaline Phosphatase Lactate Dehydrogenase NT-Pro-B Natriuret Pep Total Protein Albumin Arterial Blood Glucose Arterial Blood Ionized Calcium Urine WBC (Auto) Vancomycin Trough Phenytoin Crossmatch 10/31/20 10/31/20 11/01/20 03:20 05:43 04:55 WBC RBC Hgb Hct MCV MCH MCHC RDW Plt Count Lymph % (Auto) [place] % (Auto) Lymph # (Auto) [place] # (Auto) Baso # (Auto) Seg Neutrophils % Seg Neuts % (Manual) Lymphocytes % (Manual) Monocytes % (Manual) Nucleated RBC % Seg Neutrophils # Seg Neutrophils # Man Lymphocytes # (Manual) Monocytes # (Manual) PT INR APTT Fibrinogen D-Dimer ABG pH POC ABG pCO2 POC ABG pO2 ABG pO2 ABG HCO3 ABG Base Excess ABG Hemoglobin ABG Oxyhemoglobin ABG Sodium ABG Potassium ABG Chloride ABG Glucose VBG pH Oxyhemoglobin Carboxyhemoglobin Sodium Potassium Chloride Carbon Dioxide BUN Creatinine Glucose POC Glucose 108 H 115 H 108 H Random Insulin C-Peptide Lactic Acid Calcium Ionized Calcium Phosphorus Magnesium AST ALT Alkaline Phosphatase Lactate Dehydrogenase NT-Pro-B Natriuret Pep Total Protein Albumin Arterial Blood Glucose Arterial Blood Ionized Calcium Urine WBC (Auto) Vancomycin Trough Phenytoin Crossmatch 11/01/20 11/01/20 11/01/20 05:01 16:47 21:36 WBC RBC Hgb Hct MCV MCH MCHC RDW Plt Count Lymph % (Auto) [place] % (Auto) Lymph # (Auto) [place] # (Auto) Baso # (Auto) Seg Neutrophils % Seg Neuts % (Manual) Lymphocytes % (Manual) Monocytes % (Manual) Nucleated RBC % Seg Neutrophils # Seg Neutrophils # Man Lymphocytes # (Manual) Monocytes # (Manual) PT INR APTT Fibrinogen D-Dimer ABG pH POC ABG pCO2 POC ABG pO2 ABG pO2 ABG HCO3 ABG Base Excess ABG Hemoglobin ABG Oxyhemoglobin ABG Sodium ABG Potassium ABG Chloride ABG Glucose VBG pH Oxyhemoglobin Carboxyhemoglobin Sodium 135 L Potassium Chloride Carbon Dioxide BUN Creatinine Glucose POC Glucose 116 H 112 H Random Insulin C-Peptide Lactic Acid Calcium Ionized Calcium Phosphorus Magnesium AST 93 H ALT Alkaline Phosphatase 132 H Lactate Dehydrogenase NT-Pro-B Natriuret Pep Total Protein Albumin 3.6 L Arterial Blood Glucose Arterial Blood Ionized Calcium Urine WBC (Auto) Vancomycin Trough Phenytoin Crossmatch 11/02/20 11/02/20 11/02/20 17:45 19:19 19:19 WBC RBC Hgb Hct MCV MCH MCHC RDW Plt Count Lymph % (Auto) [place] % (Auto) Lymph # (Auto) [place] # (Auto) Baso # (Auto) Seg Neutrophils % Seg Neuts % (Manual) Lymphocytes % (Manual) Monocytes % (Manual) Nucleated RBC % Seg Neutrophils # Seg Neutrophils # Man Lymphocytes # (Manual) Monocytes # (Manual) PT INR APTT Fibrinogen D-Dimer ABG pH POC ABG pCO2 POC ABG pO2 ABG pO2 ABG HCO3 ABG Base Excess ABG Hemoglobin ABG Oxyhemoglobin ABG Sodium ABG Potassium ABG Chloride ABG Glucose VBG pH Oxyhemoglobin Carboxyhemoglobin Sodium Potassium Chloride Carbon Dioxide BUN Creatinine Glucose POC Glucose 107 H Random Insulin 43.2 H C-Peptide 6.23 H Lactic Acid Calcium Ionized Calcium Phosphorus Magnesium AST ALT Alkaline Phosphatase Lactate Dehydrogenase NT-Pro-B Natriuret Pep Total Protein Albumin Arterial Blood Glucose Arterial Blood Ionized Calcium Urine WBC (Auto) Vancomycin Trough Phenytoin Crossmatch 11/03/20 11/04/20 11/04/20 21:49 05:00 05:00 WBC 13.8 H RBC Hgb Hct MCV MCH MCHC RDW 16.6 H Plt Count Lymph % (Auto) 11.8 L [place] % (Auto) 11.0 H Lymph # (Auto) [place] # (Auto) 1.5 H Baso # (Auto) Seg Neutrophils % 75.1 H Seg Neuts % (Manual) Lymphocytes % (Manual) Monocytes % (Manual) Nucleated RBC % Seg Neutrophils # 10.4 H Seg Neutrophils # Man Lymphocytes # (Manual) Monocytes # (Manual) PT INR APTT Fibrinogen D-Dimer ABG pH POC ABG pCO2 POC ABG pO2 ABG pO2 ABG HCO3 ABG Base Excess ABG Hemoglobin ABG Oxyhemoglobin ABG Sodium ABG Potassium ABG Chloride ABG Glucose VBG pH Oxyhemoglobin Carboxyhemoglobin Sodium Potassium Chloride Carbon Dioxide BUN Creatinine Glucose 112 H POC Glucose 109 H Random Insulin C-Peptide Lactic Acid Calcium Ionized Calcium Phosphorus Magnesium AST 90 H ALT Alkaline Phosphatase Lactate Dehydrogenase NT-Pro-B Natriuret Pep Total Protein Albumin 3.8 L Arterial Blood Glucose Arterial Blood Ionized Calcium Urine WBC (Auto) Vancomycin Trough Phenytoin Crossmatch 11/04/20 11/04/20 11/05/20 06:03 23:47 07:47 WBC RBC Hgb Hct MCV MCH MCHC RDW Plt Count Lymph % (Auto) [place] % (Auto) Lymph # (Auto) [place] # (Auto) Baso # (Auto) Seg Neutrophils % Seg Neuts % (Manual) Lymphocytes % (Manual) Monocytes % (Manual) Nucleated RBC % Seg Neutrophils # Seg Neutrophils # Man Lymphocytes # (Manual) Monocytes # (Manual) PT INR APTT Fibrinogen D-Dimer ABG pH POC ABG pCO2 POC ABG pO2 ABG pO2 ABG HCO3 ABG Base Excess ABG Hemoglobin ABG Oxyhemoglobin ABG Sodium ABG Potassium ABG Chloride ABG Glucose VBG pH Oxyhemoglobin Carboxyhemoglobin Sodium Potassium Chloride Carbon Dioxide BUN Creatinine Glucose POC Glucose 107 H 121 H 111 H Random Insulin C-Peptide Lactic Acid Calcium Ionized Calcium Phosphorus Magnesium AST ALT Alkaline Phosphatase Lactate Dehydrogenase NT-Pro-B Natriuret Pep Total Protein Albumin Arterial Blood Glucose Arterial Blood Ionized Calcium Urine WBC (Auto) Vancomycin Trough Phenytoin Crossmatch 11/05/20 11/06/20 11/06/20 23:24 17:04 23:36 WBC RBC Hgb Hct MCV MCH MCHC RDW Plt Count Lymph % (Auto) [place] % (Auto) Lymph # (Auto) [place] # (Auto) Baso # (Auto) Seg Neutrophils % Seg Neuts % (Manual) Lymphocytes % (Manual) Monocytes % (Manual) Nucleated RBC % Seg Neutrophils # Seg Neutrophils # Man Lymphocytes # (Manual) Monocytes # (Manual) PT INR APTT Fibrinogen D-Dimer ABG pH POC ABG pCO2 POC ABG pO2 ABG pO2 ABG HCO3 ABG Base Excess ABG Hemoglobin ABG Oxyhemoglobin ABG Sodium ABG Potassium ABG Chloride ABG Glucose VBG pH Oxyhemoglobin Carboxyhemoglobin Sodium Potassium Chloride Carbon Dioxide BUN Creatinine Glucose POC Glucose 111 H 112 H 108 H Random Insulin C-Peptide Lactic Acid Calcium Ionized Calcium Phosphorus Magnesium AST ALT Alkaline Phosphatase Lactate Dehydrogenase NT-Pro-B Natriuret Pep Total Protein Albumin Arterial Blood Glucose Arterial Blood Ionized Calcium Urine WBC (Auto) Vancomycin Trough Phenytoin Crossmatch 11/07/20 11/07/20 11/07/20 03:33 04:44 04:44 WBC RBC Hgb Hct MCV MCH MCHC RDW 16.6 H Plt Count Lymph % (Auto) [place] % (Auto) 13.1 H Lymph # (Auto) [place] # (Auto) 1.3 H Baso # (Auto) Seg Neutrophils % Seg Neuts % (Manual) Lymphocytes % (Manual) Monocytes % (Manual) Nucleated RBC % Seg Neutrophils # Seg Neutrophils # Man Lymphocytes # (Manual) Monocytes # (Manual) PT INR APTT Fibrinogen D-Dimer ABG pH POC ABG pCO2 POC ABG pO2 ABG pO2 ABG HCO3 ABG Base Excess ABG Hemoglobin ABG Oxyhemoglobin ABG Sodium ABG Potassium ABG Chloride ABG Glucose VBG pH Oxyhemoglobin Carboxyhemoglobin Sodium Potassium Chloride Carbon Dioxide BUN Creatinine Glucose 103 H POC Glucose 109 H Random Insulin C-Peptide Lactic Acid Calcium Ionized Calcium Phosphorus 5.30 H Magnesium AST ALT Alkaline Phosphatase Lactate Dehydrogenase NT-Pro-B Natriuret Pep Total Protein Albumin Arterial Blood Glucose Arterial Blood Ionized Calcium Urine WBC (Auto) Vancomycin Trough Phenytoin Crossmatch 11/07/20 11/07/20 11/08/20 15:58 23:46 07:30 WBC RBC Hgb Hct MCV MCH MCHC RDW Plt Count Lymph % (Auto) [place] % (Auto) Lymph # (Auto) [place] # (Auto) Baso # (Auto) Seg Neutrophils % Seg Neuts % (Manual) Lymphocytes % (Manual) Monocytes % (Manual) Nucleated RBC % Seg Neutrophils # Seg Neutrophils # Man Lymphocytes # (Manual) Monocytes # (Manual) PT INR APTT Fibrinogen D-Dimer ABG pH POC ABG pCO2 POC ABG pO2 ABG pO2 ABG HCO3 ABG Base Excess ABG Hemoglobin ABG Oxyhemoglobin ABG Sodium ABG Potassium ABG Chloride ABG Glucose VBG pH Oxyhemoglobin Carboxyhemoglobin Sodium Potassium Chloride Carbon Dioxide BUN Creatinine Glucose POC Glucose 108 H 106 H 109 H Random Insulin C-Peptide Lactic Acid Calcium Ionized Calcium Phosphorus Magnesium AST ALT Alkaline Phosphatase Lactate Dehydrogenase NT-Pro-B Natriuret Pep Total Protein Albumin Arterial Blood Glucose Arterial Blood Ionized Calcium Urine WBC (Auto) Vancomycin Trough Phenytoin Crossmatch 11/08/20 11/08/20 11/09/20 11:48 23:32 17:10 WBC RBC Hgb Hct MCV MCH MCHC RDW Plt Count Lymph % (Auto) [place] % (Auto) Lymph # (Auto) [place] # (Auto) Baso # (Auto) Seg Neutrophils % Seg Neuts % (Manual) Lymphocytes % (Manual) Monocytes % (Manual) Nucleated RBC % Seg Neutrophils # Seg Neutrophils # Man Lymphocytes # (Manual) Monocytes # (Manual) PT INR APTT Fibrinogen D-Dimer ABG pH POC ABG pCO2 POC ABG pO2 ABG pO2 ABG HCO3 ABG Base Excess ABG Hemoglobin ABG Oxyhemoglobin ABG Sodium ABG Potassium ABG Chloride ABG Glucose VBG pH Oxyhemoglobin Carboxyhemoglobin Sodium Potassium Chloride Carbon Dioxide BUN Creatinine Glucose POC Glucose 110 H 116 H 112 H Random Insulin C-Peptide Lactic Acid Calcium Ionized Calcium Phosphorus Magnesium AST ALT Alkaline Phosphatase Lactate Dehydrogenase NT-Pro-B Natriuret Pep Total Protein Albumin Arterial Blood Glucose Arterial Blood Ionized Calcium Urine WBC (Auto) Vancomycin Trough Phenytoin Crossmatch 11/09/20 11/10/20 11/10/20 21:42 05:49 07:17 WBC RBC Hgb Hct MCV MCH MCHC RDW Plt Count Lymph % (Auto) [place] % (Auto) Lymph # (Auto) [place] # (Auto) Baso # (Auto) Seg Neutrophils % Seg Neuts % (Manual) Lymphocytes % (Manual) Monocytes % (Manual) Nucleated RBC % Seg Neutrophils # Seg Neutrophils # Man Lymphocytes # (Manual) Monocytes # (Manual) PT INR APTT Fibrinogen D-Dimer ABG pH POC ABG pCO2 POC ABG pO2 ABG pO2 ABG HCO3 ABG Base Excess ABG Hemoglobin ABG Oxyhemoglobin ABG Sodium ABG Potassium ABG Chloride ABG Glucose VBG pH Oxyhemoglobin Carboxyhemoglobin Sodium Potassium Chloride Carbon Dioxide BUN Creatinine Glucose POC Glucose 110 H 108 H 111 H Random Insulin C-Peptide Lactic Acid Calcium Ionized Calcium Phosphorus Magnesium AST ALT Alkaline Phosphatase Lactate Dehydrogenase NT-Pro-B Natriuret Pep Total Protein Albumin Arterial Blood Glucose Arterial Blood Ionized Calcium Urine WBC (Auto) Vancomycin Trough Phenytoin Crossmatch 11/10/20 11/11/20 11/11/20 20:36 04:58 11:56 WBC RBC Hgb Hct MCV MCH MCHC RDW Plt Count Lymph % (Auto) [place] % (Auto) Lymph # (Auto) [place] # (Auto) Baso # (Auto) Seg Neutrophils % Seg Neuts % (Manual) Lymphocytes % (Manual) Monocytes % (Manual) Nucleated RBC % Seg Neutrophils # Seg Neutrophils # Man Lymphocytes # (Manual) Monocytes # (Manual) PT INR APTT Fibrinogen D-Dimer ABG pH POC ABG pCO2 POC ABG pO2 ABG pO2 ABG HCO3 ABG Base Excess ABG Hemoglobin ABG Oxyhemoglobin ABG Sodium ABG Potassium ABG Chloride ABG Glucose VBG pH Oxyhemoglobin Carboxyhemoglobin Sodium Potassium Chloride Carbon Dioxide BUN Creatinine Glucose POC Glucose 111 H 109 H 109 H Random Insulin C-Peptide Lactic Acid Calcium Ionized Calcium Phosphorus Magnesium AST ALT Alkaline Phosphatase Lactate Dehydrogenase NT-Pro-B Natriuret Pep Total Protein Albumin Arterial Blood Glucose Arterial Blood Ionized Calcium Urine WBC (Auto) Vancomycin Trough Phenytoin Crossmatch 11/11/20 11/11/20 11/11/20 13:50 13:50 15:50 WBC RBC Hgb Hct MCV MCH MCHC RDW Plt Count Lymph % (Auto) [place] % (Auto) Lymph # (Auto) [place] # (Auto) Baso # (Auto) Seg Neutrophils % Seg Neuts % (Manual) Lymphocytes % (Manual) Monocytes % (Manual) Nucleated RBC % Seg Neutrophils # Seg Neutrophils # Man Lymphocytes # (Manual) Monocytes # (Manual) PT INR APTT Fibrinogen D-Dimer 1974.47 H ABG pH POC ABG pCO2 POC ABG pO2 ABG pO2 ABG HCO3 ABG Base Excess ABG Hemoglobin ABG Oxyhemoglobin ABG Sodium ABG Potassium ABG Chloride ABG Glucose VBG pH Oxyhemoglobin Carboxyhemoglobin Sodium Potassium Chloride Carbon Dioxide BUN Creatinine Glucose POC Glucose 107 H Random Insulin C-Peptide Lactic Acid Calcium Ionized Calcium Phosphorus Magnesium AST ALT Alkaline Phosphatase Lactate Dehydrogenase NT-Pro-B Natriuret Pep Total Protein Albumin Arterial Blood Glucose Arterial Blood Ionized Calcium Urine WBC (Auto) > 182.0 H Vancomycin Trough Phenytoin Crossmatch 11/11/20 11/12/20 11/12/20 23:17 11:33 22:20 WBC RBC Hgb Hct MCV MCH MCHC RDW Plt Count Lymph % (Auto) [place] % (Auto) Lymph # (Auto) [place] # (Auto) Baso # (Auto) Seg Neutrophils % Seg Neuts % (Manual) Lymphocytes % (Manual) Monocytes % (Manual) Nucleated RBC % Seg Neutrophils # Seg Neutrophils # Man Lymphocytes # (Manual) Monocytes # (Manual) PT INR APTT Fibrinogen D-Dimer ABG pH POC ABG pCO2 POC ABG pO2 ABG pO2 ABG HCO3 ABG Base Excess ABG Hemoglobin ABG Oxyhemoglobin ABG Sodium ABG Potassium ABG Chloride ABG Glucose VBG pH Oxyhemoglobin Carboxyhemoglobin Sodium Potassium Chloride Carbon Dioxide BUN Creatinine Glucose POC Glucose 119 H 111 H 107 H Random Insulin C-Peptide Lactic Acid Calcium Ionized Calcium Phosphorus Magnesium AST ALT Alkaline Phosphatase Lactate Dehydrogenase NT-Pro-B Natriuret Pep Total Protein Albumin Arterial Blood Glucose Arterial Blood Ionized Calcium Urine WBC (Auto) Vancomycin Trough Phenytoin Crossmatch 11/13/20 11/13/20 11/13/20 01:52 07:33 10:05 WBC RBC Hgb Hct MCV MCH MCHC RDW Plt Count Lymph % (Auto) [place] % (Auto) Lymph # (Auto) [place] # (Auto) Baso # (Auto) Seg Neutrophils % Seg Neuts % (Manual) Lymphocytes % (Manual) Monocytes % (Manual) Nucleated RBC % Seg Neutrophils # Seg Neutrophils # Man Lymphocytes # (Manual) Monocytes # (Manual) PT INR APTT Fibrinogen D-Dimer ABG pH POC ABG pCO2 POC ABG pO2 ABG pO2 ABG HCO3 ABG Base Excess ABG Hemoglobin ABG Oxyhemoglobin ABG Sodium ABG Potassium ABG Chloride ABG Glucose VBG pH Oxyhemoglobin Carboxyhemoglobin Sodium Potassium Chloride Carbon Dioxide BUN Creatinine Glucose 114 H POC Glucose 124 H 106 H Random Insulin C-Peptide Lactic Acid Calcium Ionized Calcium Phosphorus 4.60 H Magnesium AST ALT Alkaline Phosphatase Lactate Dehydrogenase NT-Pro-B Natriuret Pep Total Protein Albumin Arterial Blood Glucose Arterial Blood Ionized Calcium Urine WBC (Auto) Vancomycin Trough Phenytoin Crossmatch 11/13/20 11/13/20 11/14/20 11:50 17:20 05:26 WBC RBC Hgb Hct MCV MCH MCHC RDW Plt Count Lymph % (Auto) [place] % (Auto) Lymph # (Auto) [place] # (Auto) Baso # (Auto) Seg Neutrophils % Seg Neuts % (Manual) Lymphocytes % (Manual) Monocytes % (Manual) Nucleated RBC % Seg Neutrophils # Seg Neutrophils # Man Lymphocytes # (Manual) Monocytes # (Manual) PT INR APTT Fibrinogen D-Dimer ABG pH POC ABG pCO2 POC ABG pO2 ABG pO2 ABG HCO3 ABG Base Excess ABG Hemoglobin ABG Oxyhemoglobin ABG Sodium ABG Potassium ABG Chloride ABG Glucose VBG pH Oxyhemoglobin Carboxyhemoglobin Sodium Potassium Chloride Carbon Dioxide BUN Creatinine Glucose POC Glucose 113 H 110 H 110 H Random Insulin C-Peptide Lactic Acid Calcium Ionized Calcium Phosphorus Magnesium AST ALT Alkaline Phosphatase Lactate Dehydrogenase NT-Pro-B Natriuret Pep Total Protein Albumin Arterial Blood Glucose Arterial Blood Ionized Calcium Urine WBC (Auto) Vancomycin Trough Phenytoin Crossmatch 11/14/20 11/15/20 11/15/20 23:23 05:07 11:48 WBC RBC Hgb Hct MCV MCH MCHC RDW Plt Count Lymph % (Auto) [place] % (Auto) Lymph # (Auto) [place] # (Auto) Baso # (Auto) Seg Neutrophils % Seg Neuts % (Manual) Lymphocytes % (Manual) Monocytes % (Manual) Nucleated RBC % Seg Neutrophils # Seg Neutrophils # Man Lymphocytes # (Manual) Monocytes # (Manual) PT INR APTT Fibrinogen D-Dimer ABG pH POC ABG pCO2 POC ABG pO2 ABG pO2 ABG HCO3 ABG Base Excess ABG Hemoglobin ABG Oxyhemoglobin ABG Sodium ABG Potassium ABG Chloride ABG Glucose VBG pH Oxyhemoglobin Carboxyhemoglobin Sodium Potassium Chloride Carbon Dioxide BUN Creatinine Glucose POC Glucose 112 H 115 H 114 H Random Insulin C-Peptide Lactic Acid Calcium Ionized Calcium Phosphorus Magnesium AST ALT Alkaline Phosphatase Lactate Dehydrogenase NT-Pro-B Natriuret Pep Total Protein Albumin Arterial Blood Glucose Arterial Blood Ionized Calcium Urine WBC (Auto) Vancomycin Trough Phenytoin Crossmatch 11/16/20 11/17/20 11/18/20 05:06 00:17 05:04 WBC RBC Hgb Hct MCV MCH MCHC RDW Plt Count Lymph % (Auto) [place] % (Auto) Lymph # (Auto) [place] # (Auto) Baso # (Auto) Seg Neutrophils % Seg Neuts % (Manual) Lymphocytes % (Manual) Monocytes % (Manual) Nucleated RBC % Seg Neutrophils # Seg Neutrophils # Man Lymphocytes # (Manual) Monocytes # (Manual) PT INR APTT Fibrinogen D-Dimer ABG pH POC ABG pCO2 POC ABG pO2 ABG pO2 ABG HCO3 ABG Base Excess ABG Hemoglobin ABG Oxyhemoglobin ABG Sodium ABG Potassium ABG Chloride ABG Glucose VBG pH Oxyhemoglobin Carboxyhemoglobin Sodium Potassium Chloride Carbon Dioxide BUN Creatinine Glucose POC Glucose 110 H 115 H 111 H Random Insulin C-Peptide Lactic Acid Calcium Ionized Calcium Phosphorus Magnesium AST ALT Alkaline Phosphatase Lactate Dehydrogenase NT-Pro-B Natriuret Pep Total Protein Albumin Arterial Blood Glucose Arterial Blood Ionized Calcium Urine WBC (Auto) Vancomycin Trough Phenytoin Crossmatch
--- NOTE | 2020-11-19 09:30 | Progress Note ---
Assessment and Plan Assessment and plan: 30 y/o female patient with Eclampsia/help syndrome, s/p emergent section with DIC, hemorrhage, supracervical abdominal hysterectomy, acute respiratory failure , tracheostomy on T-piece with morbid obesity, s/p cardiac arrest 12/08/2019 status post CPR per ACLS, acute hypoxic brain injury Acute kidney injury improved, severe shock requiring pressors, DIC septic shock improved, history of C. difficile colitis completed treatment with vancomycin. Tracheostomy on T-piece, continues to require 5 L of oxygen. Herpetic flareup, ID started treatment with antibiotics, patient is waiting for SNF placement DC planning per case management Assessment and plan: --Persistent hypoglycemia; patient is requiring continuous D10 W infusion CT abdomen done to rule out insulinoma, CT abdomen report negative for pancreatic tumor We will closely monitor --Cardiac arrest; 10/07/2020 ,status post CPR --Acute hypoxic brain injury; Supportive care, closely monitor --Acute hypoxic respiratory failure: Tracheostomy on T-piece , today on 4.5 L oxygen, saturating 100% Supportive care, Pulmonary critical following COVID-19 negative C. difficile positive; Patient on contact isolation Completed treatment --Afebrile: Blood, urine, tracheal aspirate cultures New cultures negative to date Monitor off antibiotics Closely monitor --Sepsis; received antibiotics Continue to monitor off antibiotics ID following --COVID-19 test negative; 10/08/2020 --C. difficile colitis test; positive; 10/16/2020 --Acute metabolic encephalopathy --Acute kidney injury; vasomotor nephropathy Resolved, renal function within normal limits, closely monitor --Shock; monitor of pressors Blood pressures reasonable level --DIC; sepsis, septic shock, resolved --History of preeclampsia; / hemorrhage Status post hysterectomy --History of C. difficile colitis; completed oral vancomycin --DVT/SVT and right upper extremity Very poor prognosis, Consults recommendations noted and appreciated We will closely monitor the patient and adjust management as needed Plan of care reviewed with the patient's nurse. Brief history; 30 year old -Portuguese female CHE 10/25/20 at 36w5d who presents with seizures in triage on 10/02/20. Pt was not able to provide history but per pt's , she presented to the hospital to return a 24 hour urine specimen for analysis. She then suddenly reported that she did not feel good. She was taken to labor and delivery and shortly after arrival, she began seizing. During this time, a code met was called because the patient became hypoxic. She was the n noted to be without a pulse. Chest compressions were started immediately, and the patient was emergently taken to the operating room for delivery of the fetus. Off note, This patient has had care at [facility] with comanagement by [facility] since 11 wks complicated by ADHD, morbid obesity, generalized anxiety disorder, panic attacks, chronic narcotic use, fibromyalgia, GERD, Irritable Bowel Syndrome, Migraines, h/o endometrial ablation and ovarian vein embolization, genital herpes, insomnia, LGA fetus, nausea and vomiting, polyhydramnios, quad screen positive for Down's Syndrome, and previous x 3. She is GBS negative. , Patient tracheostomy on ventilatory support, unable to wean, continue supportive care poor prognosis 11:30: Pt brought to L&D triage for evaluation of possible labor. Pt accompanied by her spouse. Pt spouse poor historian; unable to obtain history- allergies at this time. Pt taken from registration to triage area via WC. Pt unresponsive, actively seizing with snorous respirations. malted milk mixer, Kassy, called and requesting assistance. 11:35: Multiple staff at bedside. Pt 02 sat 67% on nonrebreather, unable to read BP . Yifan Theodore CRNA, at bedside for intubation and assistance with IV insertion. INT attempt by multiple RNs unsuccessful at this time. 11:42: Pt being bagged by KORIN, 02% 79%. No pulse palpated, compressions on at this time; bharati young called and Dr. Newberry preparing OR for emergent c/s. 11:44: Continued compressions on stretcher while transporting pt to OR 1. Pt being bagged with jaw thrust manuever in place by KORIN Stringer student. 11:45: Arrival to OR 1. Dr. Newberry and Dr. Portillo present for emergent c/s. Code team arrived for continued care. patient revived and c/s done Patient has been bleeding from C/s site followed by supracervical hysterectomy for severe bleeding, Patient transfused multiple units of PRBC, Patient in DIC. Patient transferred to the ICU Hospital course; 10/03. Patient seen and examined at bedside this morning. Patient is nonresponsive and mechanically ventilated. On pressors. Labs reviewed-has leukocytosis, anemia, thrombocytopenia, ADOLPH and lactic acidosis. Started on IV antibiotics to cover possible sepsis secondary to DIC. Hematology oncology recommendations appreciated-needs additional cryoprecipitate and FFP. Monitor D-dimer, fibrinogen and frequent labs. Nephrology consulted for lactic acidosis and ADOLPH. 10/04. Remains mechanically ventilated. Upperglade antibiotics. Labs shows improved acidosis - lactic acid 3.5. Hb drop noted. Getting transfused 2 units PRBCs. Juanpablo telet count is ~40k. Continue to monitor labs closely. Critical care team on board. 10/05; xray reviewed, concerning for multifocal infilrate, likely underlying Pneumonia, will add ID consult to assist with management of this critically ill patient, start tube feed, closely monitor renal system 10/06: Resumed care, remains on mechanical ventilation. No active bleeding, H&H stable. Continue to monitor CBC and BMP. Continue IV antibiotic for underlying pneumonia. Follow critical care and ID recommendation. 10/07: Remains on mechanical ventilation. No active bleeding, H&H stable. Critical care following, wean off ventilation as tolerated. 10/08: Patient had another cardiac arrest last night. Remains on mechanical ventilation, update family. Continue supportive care -poor prognosis 10/09: Called patient mother and discussed about patient care and management. Answered all question to best of my knowledge and family satisfaction. Patient remains on mechanical ventilation, cardiac arrest x2 so far. Critically sick, poor prognosis 10/10: remains on mechanical ventilation. h/h stable, no active bleeding. monitor CBC/BMP 10/11: WBC trended up with diarrhea, started on vancomycin po. remains on MV, off pressor, tolerating TF 10/12: remains on MV, off pressor, tolerating TF. called family for update but unable to reach, could not leave message as it was full. cont supportive care, wean off vent as tolerated. 10/13/2020; patient is on mechanical ventilation, tolerating tube feeding. Patient has labored breathing. Neuro was consulted and recommend MRI. Patient is on Precedex. Rectal tube in place. 10/14/2020; patient is on mechanical ventilation, Precedex. Patient had fever and blood culture ordered. Patient is on IV vancomycin per ID recommendation. Neuro consulted and recommend MRI. Continue to monitor. Prognosis is guarded. 10/15/2020; patient is on mechanical ventilation, Precedex. Patient had fever and blood culture ordered. Patient is on IV vancomycin per ID recommendation. Neuro consulted and recommend MRI. Continue to monitor. Prognosis is guarded. 10/17: Remains with C.DIFF and Bactermia, Poor prognosis. No purposeful movement. MRI and EEG discussed with Intensvisit, Continue aggressive BP control. 10/18: Blood pressure better controlled MRI done 10/15 shows mild improvement in edema. We will continue to monitor mother was at bedside yesterday. Nursing documentation trach and PEG discussed with the mother including goals of care. She is still in denial about the gravity of her daughters her condition which is understandable considering her age. Continue aggressive management at this time. Await for bacteremia to clear by ID before placing PICC line. 10/19: Patient for possible PEG and Trach, ID following, repeat cultures remain negative. Poor prognosis 10/20: Pt noted to DVT and SVT in the RUE, Vascular consult and will also obtain Hematology for possible considering changing in Anticoagulation. CONTINUE TO MONITOR H/H and PLT. Family updated by [employer]ens[employer]. Heparin gtt started. Will check CBC and BMP 10/21: Continue supporive care, Diarrhea now resolving, But still with persistent Fever, May need repeat CT/AP per ID, still with profused Encephalopathy 10/22: Continue supportive care, weaning, awaiting repeat Imaging. FOLLOW Fever curve. Enoxparin restarted 10/23: Continue supportive care, wean as tolerated. 10/24; Started on CPAP trial, discussed with pulmonary, still with diarrhea. 10/25: Patients seen and examined, no clinical changes, still with diarrhea. ?meaningful recovery. 10/26: Clinically unchanged, continue CPAP trial, Will discuss with Neurology about re-evaluation, ?Need for repeat CT head. ?PRESS considering initial elevated BP, now stable. 10/27; tracheostomy on vent, weaning trials, vital signs noted, poor prognosis 10/28; unable to wean, tracheostomy on vent. Sepsis. Continue current management. Consults and recommendations noted and appreciated 10/30/2020;Patient on T-piece 5 L of oxygen not in acute distress, noncommunicative 11/02/2020; patient on T-piece 5 L of oxygen 11/03/2020; patient's fever slightly improved low-grade, continue current management, remains on T-piece with 5 L of oxygen 11/04/2020; T-max last 24 hours 100.3 F, new cultures negative to date, monitor off antibiotics Patient is off Levophed, blood pressures reasonable level, tracheostomy on T- piece 3 to 5 L nasal cannula oxygen 11/05/2020; tracheostomy on T-piece patient remains on 5 L of nasal cannula oxygen, unresponsive severe hypoxic brain injury I called patient's mother Ms. Pamela Bassett as well as patient's spouse Mr. Danilo Dimas at [phone] unable to reach them Left voicemail on Ms. Pamela Bassettz phone and encouraged him to call back 11/06/2020; I tried to call again today Ms. Pamela Bassett to discuss patient's condition and treatment plan and update consultants recommendations and patient's prognosis., unable to reach her 11/10/2020; family conference was held by case management yesterday 11/09/2020, family decided and agreed for SNF placement 11/11/2020; patient seen and examined, clinically no change tracheostomy on 5 L of nasal cannula oxygen, hemodynamically and clinically stable for discharge To LTAC versus SNF, DC planning per case management 11/12/2020; clinically no change, continue current management, DC planning per case management possible SNF placement 11/13/2020; patient is receiving herpes flareup treatment per ID 11/14/2020; clinically no change, awaiting SNF placement 11/15/2020; clinically no change, tracheostomy on T-piece on 5 L oxygen, awaiting placement 11/16/2020; patient awaiting placement 11/18/2020; abdominal CT scan negative for insulinoma or pancreatic tumor ,clinically no change Awaiting SNF placement 11/19/2020; remains on 4 L of oxygen tracheostomy via T-piece, awaiting SNF placement The high probability of a clinically significant, sudden or life threatening deterioration of the [MULTIPLE ORGAN] system(s) required my full and direct attention, intervention and personal management. The aggregate critical care time was [31] minutes. This time is in addition to time spent performing reported procedures but includes the following: [X] Data Review and interpretation [X] Patient assessment and monitoring of vital signs [X] Documentation [X] Medication orders and management History Interval history: I have seen and examined the patient at the bedside in ICU this morning I have seen patient chart current medications and vital signs Patient is unresponsive , tracheostomy on T-piece requiring 4 L of oxygen Vital signs noted Patient is awaiting SNF placement Hospitalist Physical - Constitutional Vitals: Temp Pulse Resp BP Pulse Ox 98.4 F 95 H 28 H 124/63 96 11/19/20 04:00 11/19/20 07:31 11/19/20 07:31 11/19/20 07:31 11/19/20 07:31 General appearance: Present: no acute distress, well-nourished, obese, other (Noncommunicative) - EENT Eyes: Absent: scleral icterus, conjunctival injection - Neck Neck: Present: supple, normal ROM, other (Tracheostomy on T-piece) - Respiratory Respiratory effort: normal Respiratory: bilateral: diminished, rhonchi, negative: rales, wheezing - Cardiovascular Rhythm: regular Heart Sounds: Present: S1 & S2 - Extremities Extremities: no ischemia, No edema - Abdominal General gastrointestinal: soft, non-tender, non-distended, normal bowel sounds, other (PEG tube in place) - Integumentary Integumentary: Present: clear, warm - Psychiatric Psychiatric: other (Unresponsive noncommunicative) - Neurologic Neurologic: other (Unresponsive noncommunicative) HEART Score - HEART Score Age: < 45 Risk factors: 1-2 risk factors - Critical Actions Critical Actions: >7 pts:50-65% risk of adverse cardiac event. Early invasive measures Results - Labs CBC & Chem 7: 11/19/20 05:23 11/13/20 10:05 Labs: Laboratory Last Values WBC 10.2 K/mm3 (4.5-11.0) 11/07/20 04:44 RBC 3.88 M/mm3 (3.65-5.03) 11/07/20 04:44 Hgb 11.1 gm/dl (10.1-14.3) 11/19/20 05:23 Hgb Comment See scanned result 10/04/20 Unknown Hct 34.5 % (30.3-42.9) 11/19/20 05:23 MCV 84 fl (79-97) 11/07/20 04:44 MCH 28 pg (28-32) 11/07/20 04:44 MCHC 34 % (30-34) 11/07/20 04:44 RDW 16.6 % (13.2-15.2) H 11/07/20 04:44 Plt Count 259 K/mm3 (140-440) 11/07/20 04:44 Lymph % (Auto) 15.2 % (13.4-35.0) 11/07/20 04:44 [place] % (Auto) 13.1 % (0.0-7.3) H 11/07/20 04:44 Eos % (Auto) 2.5 % (0.0-4.3) 11/07/20 04:44 Baso % (Auto) 0.6 % (0.0-1.8) 11/07/20 04:44 Lymph # (Auto) 1.6 K/mm3 (1.2-5.4) 11/07/20 04:44 [place] # (Auto) 1.3 K/mm3 (0.0-0.8) H 11/07/20 04:44 Eos # (Auto) 0.3 K/mm3 (0.0-0.4) 11/07/20 04:44 Baso # (Auto) 0.1 K/mm3 (0.0-0.1) 11/07/20 04:44 Add Manual Diff Complete 10/29/20 07:56 Total Counted 100 10/29/20 07:56 Seg Neutrophils % 68.6 % (40.0-70.0) 11/07/20 04:44 Seg Neuts % (Manual) 80.0 % (40.0-70.0) H 10/29/20 07:56 Band Neutrophils % 2.0 % 10/15/20 05:50 Lymphocytes % (Manual) 15.0 % (13.4-35.0) 10/29/20 07:56 Reactive Lymphs % (Man) 1.0 % 10/02/20 12:18 Monocytes % (Manual) 4.0 % (0.0-7.3) 10/29/20 07:56 Eosinophils % (Manual) 1.0 % (0.0-4.3) 10/29/20 07:56 Myelocytes % 2.0 % 10/02/20 13:05 Metamyelocytes % 1.0 % 10/14/20 04:00 Nucleated RBC % Not Reportable 10/29/20 07:56 Seg Neutrophils # 7.0 K/mm3 (1.8-7.7) 11/07/20 04:44 Seg Neutrophils # Man 10.9 K/mm3 (1.8-7.7) H 10/29/20 07:56 Band Neutrophils # 0.0 K/mm3 10/29/20 07:56 Lymphocytes # (Manual) 2.0 K/mm3 (1.2-5.4) 10/29/20 07:56 Abs React Lymphs (Man) 0.0 K/mm3 10/29/20 07:56 Monocytes # (Manual) 0.5 K/mm3 (0.0-0.8) 10/29/20 07:56 Eosinophils # (Manual) 0.1 K/mm3 (0.0-0.4) 10/29/20 07:56 Basophils # (Manual) 0.0 K/mm3 (0.0-0.1) 10/29/20 07:56 Metamyelocytes # 0.0 K/mm3 10/29/20 07:56 Myelocytes # 0.0 K/mm3 10/29/20 07:56 Promyelocytes # 0.0 K/mm3 10/29/20 07:56 Blast Cells # 0.0 K/mm3 10/29/20 07:56 WBC Morphology Not Reportable 10/29/20 07:56 Hypersegmented Neuts Not Reportable 10/29/20 07:56 Hyposegmented Neuts Not Reportable 10/29/20 07:56 Hypogranular Neuts Not Reportable 10/29/20 07:56 Smudge Cells Not Reportable 10/29/20 07:56 Toxic Granulation Not Reportable 10/29/20 07:56 Toxic Vacuolation Not Reportable 10/29/20 07:56 Dohle Bodies Not Reportable 10/29/20 07:56 Pelger-Huet Anomaly Not Reportable 10/29/20 07:56 Ester Rods Not Reportable 10/29/20 07:56 Platelet Estimate Consistent w auto 10/29/20 07:56 Clumped Platelets Not Reportable 10/29/20 07:56 Plt Clumps, EDTA Not Reportable 10/29/20 07:56 Large Platelets Few 10/29/20 07:56 Giant Platelets Not Reportable 10/29/20 07:56 Platelet Satelliting Not Reportable 10/29/20 07:56 Plt Morphology Comment Not Reportable 10/29/20 07:56 RBC Morphology Not Reportable 10/29/20 07:56 Dimorphic RBCs Not Reportable 10/29/20 07:56 Polychromasia Rare 10/29/20 07:56 Hypochromasia Few 10/29/20 07:56 Poikilocytosis Not Reportable 10/29/20 07:56 Anisocytosis Not Reportable 10/29/20 07:56 Microcytosis Not Reportable 10/29/20 07:56 Macrocytosis Not Reportable 10/29/20 07:56 Spherocytes Not Reportable 10/29/20 07:56 Pappenheimer Bodies Not Reportable 10/29/20 07:56 Sickle Cells Not Reportable 10/29/20 07:56 Target Cells Few 10/29/20 07:56 Tear Drop Cells Not Reportable 10/29/20 07:56 Ovalocytes Not Reportable 10/29/20 07:56 Stomatocytes Few 10/14/20 04:00 Helmet Cells Not Reportable 10/29/20 07:56 [place] Bodies Not Reportable 10/29/20 07:56 [place] Rings Not Reportable 10/29/20 07:56 [place] Cells Not Reportable 10/29/20 07:56 Bite Cells Not Reportable 10/29/20 07:56 Crenated Cell Not Reportable 10/29/20 07:56 Elliptocytes Not Reportable 10/29/20 07:56 Acanthocytes (Spur) Not Reportable 10/29/20 07:56 Rouleaux Not Reportable 10/29/20 07:56 Hemoglobin C Crystals Not Reportable 10/29/20 07:56 Schistocytes Not Reportable 10/29/20 07:56 Malaria parasites Not Reportable 10/29/20 07:56 Sickle Cell Solubility See scanned result 10/04/20 Unknown Hemoglobin A See scanned result 10/04/20 Unknown Hemoglobin A2 See scanned result 10/04/20 Unknown Hemoglobin A2 Prime See scanned result 10/04/20 Unknown Hemoglobin C See scanned result 10/04/20 Unknown Hemoglobin D See scanned result 10/04/20 Unknown Hemoglobin E See scanned result 10/04/20 Unknown Hgb F Diffential Stain See scanned result 10/04/20 Unknown Hemoglobin F Quant See scanned result 10/04/20 Unknown Hemoglobin G See scanned result 10/04/20 Unknown Hemoglobin S See scanned result 10/04/20 Unknown Hemoglobin O-[place] See scanned result 10/04/20 Unknown Hemoglobin [place] See scanned result 10/04/20 Unknown Hemoglobin Analilia See scanned result 10/04/20 Unknown Variant Hemoglobin See scanned result 10/04/20 Unknown Abnorm Hgb IEF Confirm See scanned result 10/04/20 Unknown Hemoglobin Interpret See scanned result 10/04/20 Unknown Hemoglobinopathy Note See scanned result 10/04/20 Unknown Sharad Bodies Not Reportable 10/29/20 07:56 Hem Pathologist Commnt No 10/29/20 07:56 PT 13.6 Sec. (12.2-14.9) 10/21/20 13:54 INR 1.06 (0.87-1.13) 10/21/20 13:54 APTT 31.6 Sec. (24.2-36.6) 10/03/20 00:40 Fibrinogen 336 mg/dl (211-480) 10/04/20 10:00 D-Dimer 1974.47 ng/mlDDU (0-234) H 11/11/20 13:50 ABG pH 7.459 pH Units (7.350-7.450) H 10/26/20 10:30 POC ABG pCO2 20.7 mmHg (32.0-48.0) L 10/13/20 07:18 ABG pCO2 32.4 mm Hg 10/26/20 10:30 POC ABG pO2 137.9 mmHg (83-108) H 10/13/20 07:18 ABG pO2 112.2 mm Hg (80.0-90.0) H 10/26/20 10:30 POC ABG HCO3 14.8 10/13/20 07:18 ABG HCO3 22.5 mmol/L (20.0-26.0) 10/26/20 10:30 ABG O2 Saturation 98.2 % (95.0-99.0) 10/26/20 10:30 ABG O2 Content 18.5 (0.0-44) 10/26/20 10:30 POC ABG Base Excess -6.9 10/13/20 07:18 ABG Base Excess -0.6 mmol/L (-2.0-3.0) 10/26/20 10:30 ABG Hemoglobin 13.5 gm/dl (12.0-16.0) 10/26/20 10:30 ABG Oxyhemoglobin 98.3 (94-98) H 10/13/20 07:18 ABG Carboxyhemoglobin 1.3 % (0.0-5.0) 10/26/20 10:30 ABG Methemoglobin 0.5 % (0.0-1.5) 10/26/20 10:30 ABG Sodium 135.9 mmol/L (136.0-145.0) L 10/13/20 07:18 ABG Potassium 3.7 mmol/L (3.40-4.50) 10/13/20 07:18 ABG Chloride 111.0 mmol/L (98-107) H 10/13/20 07:18 ABG Glucose 109 mg/dL (65-95) H 10/13/20 07:18 VBG pH 6.949 (7.320-7.420) L* 10/02/20 Unknown Oxyhemoglobin 96.5 % (95.0-99.0) 10/26/20 10:30 Carboxyhemoglobin 0.3 (0.5-1.5) L 10/13/20 07:18 FiO2 25 % 10/26/20 10:30 Sodium 138 mmol/L (137-145) 11/13/20 10:05 Potassium 4.3 mmol/L (3.6-5.0) 11/13/20 10:05 Chloride 101.7 mmol/L (98-107) 11/13/20 10:05 Carbon Dioxide 23 mmol/L (22-30) 11/13/20 10:05 Anion Gap 18 mmol/L 11/13/20 10:05 BUN 14 mg/dL (7-17) 11/13/20 10:05 Creatinine 0.6 mg/dL (0.6-1.2) 11/13/20 10:05 Estimated GFR > 60 ml/min 11/13/20 10:05 BUN/Creatinine Ratio 23 % 11/13/20 10:05 Glucose 114 mg/dL (65-100) H 11/13/20 10:05 POC Glucose 97 mg/dL (70-105) 11/19/20 06:04 Random Insulin 43.2 uIU/mL (<=19.6) H 11/02/20 19:19 Proinsulin See scanned result 11/02/20 19:19 C-Peptide 6.23 ng/mL (0.80-3.85) H 11/02/20 19:19 Lactic Acid 1.90 mmol/L (0.7-2.0) 10/04/20 22:00 Uric Acid 7.5 mg/dL (3.5-7.6) 10/02/20 13:05 Calcium 9.7 mg/dL (8.4-10.2) 11/13/20 10:05 Ionized Calcium 4.4 mg/dL (4.8-5.6) L 10/07/20 21:00 Phosphorus 4.60 mg/dL (2.5-4.5) H 11/13/20 10:05 Magnesium 2.10 mg/dL (1.7-2.3) 11/13/20 10:05 Total Bilirubin 0.50 mg/dL (0.1-1.2) 11/04/20 05:00 AST 90 units/L (5-40) H 11/04/20 05:00 ALT 36 units/L (7-56) 11/04/20 05:00 Alkaline Phosphatase 122 units/L (35-129) 11/04/20 05:00 Lactate Dehydrogenase 769 units/L (91-180) H 10/02/20 13:05 C-Reactive Protein 0.70 mg/dL (0.00-1.30) 11/11/20 13:50 NT-Pro-B Natriuret Pep 2788 pg/mL (0-450) H 10/04/20 10:00 Total Protein 7.4 g/dL (6.3-8.2) 11/04/20 05:00 Albumin 3.8 g/dL (3.9-5) L 11/04/20 05:00 Albumin/Globulin Ratio 1.1 % 11/04/20 05:00 Procalcitonin < 0.05 ng/mL (<0.15) 11/11/20 13:50 Arterial Blood Glucose 109 mg/dL (65-95) H 10/13/20 07:18 Arterial Blood Ionized Calcium 4.6 mg/dL (4.6-5.3) 10/13/20 07:18 Urine Color Yellow (Yellow) 11/11/20 13:50 Urine Turbidity Cloudy (Clear) 11/11/20 13:50 Urine pH 6.0 (5.0-7.0) 11/11/20 13:50 Ur Specific [place] 1.013 (1.003-1.030) 11/11/20 13:50 Urine Protein 100 mg/dl mg/dL (Negative) 11/11/20 13:50 Urine Glucose (UA) Neg mg/dL (Negative) 11/11/20 13:50 Urine Ketones Neg mg/dL (Negative) 11/11/20 13:50 Urine Blood Mod (Negative) 11/11/20 13:50 Urine Nitrite Pos (Negative) 11/11/20 13:50 Urine Bilirubin Neg (Negative) 11/11/20 13:50 Urine Urobilinogen 2.0 mg/dL (<2.0) 11/11/20 13:50 Ur Leukocyte Esterase Lg (Negative) 11/11/20 13:50 Urine WBC (Auto) > 182.0 /HPF (0.0-6.0) H 11/11/20 13:50 Urine RBC (Auto) > 182.0 /HPF (0.0-6.0) 11/11/20 13:50 U Epithel Cells (Auto) 1.0 /HPF (0-13.0) 11/11/20 13:50 Urine Bacteria (Auto) 4+ /HPF (Negative) 11/11/20 13:50 Urine WBC Clumps 3+ /HPF 11/11/20 13:50 Calcium Oxalate Crystal Few 11/11/20 13:50 Urine Mucus Few /HPF 11/11/20 13:50 Vancomycin Trough 12.6 ug/mL (5.0-20.0) 10/21/20 13:54 Random Vancomycin 10.7 ug/mL (0-40.0) 10/16/20 13:09 Phenytoin 5.7 ug/mL (10.0-20.0) L 10/13/20 07:00 C. difficile Tox (PCR) Positive (Negative) 10/16/20 10:22 Coronavirus (PCR) Negative (Negative) 10/08/20 14:15 Blood Type O POSITIVE 10/02/20 12:50 Antibody Screen Negative 10/02/20 12:50 Crossmatch See Detail 10/02/20 12:50 - Diagnostic Impressions Diagnostic Impressions: Echocardiogram 12/19/20 13:42 Transthoracic Echocardiogram Indication: S/P Cardiac Arrest R/O Cardiomyopathy BP: 133/71 Conclusions *Global left ventricular systolic function is normal. *The estimated ejection fraction is 60-65%. *There is trace of mitral regurgitation. *The right 0heart chambers are both slightly dilated. *There is mild tricuspid regurgitation. *There is mild-moderate pulmonary hypertension. *The right ventricular systolic pressure is calculated at 44 mmHg. *The study quality is technically difficult. Findings Procedure Info: The study quality is technically difficult. The study is technically limited due to patient body habitus. The study was technically limited due to the patient's inability to lay in the left lateral decubitus position. Left Ventricle: The left ventricular chamber size is normal. There is no left ventricular hypertrophy. Global left ventricular systolic function is normal. The estimated ejection fraction is 60-65%. Left Atrium: The left atrial chamber size is normal. Right Ventricle: The right ventricle is slightly dilated. Right Atrium: The right atrium is mildly dilated. Aortic Valve: The aortic valve leaflets are mildly thickened. There is no evidence of aortic regurgitation. There is no evidence of aortic stenosis. Mitral Valve: The mitral valve leaflets are mildly thickened. There is trace of mitral regurgitation. There is no evidence of mitral stenosis. Tricuspid Valve: There is mild tricuspid regurgitation. The right ventricular systolic pressure is calculated at 44 mmHg. There is evidence of mild pulmonary hypertension. Pulmonic Valve: There is trace pulmonic regurgitation. Pericardium: There is no pericardial effusion. Aorta: There is no dilatation of the ascending aorta. There is no dilatation of the aortic root. Venous: The inferior vena cava is dilated. Measurements Chambers 2D Name Value Normal Range IVSd (2D) 1 cm (0.6 - 1.1) LVPWd (2D) 1.01 cm (0.6 - 1.1) LVIDd (2D) 4.58 cm (3.7 - 5.6) LVIDs (2D) 3.17 cm (2 - 3.8) LV FS (2D) 30.93 % - EF Teichholz (2D) 58.66 % - Ao root diameter (2D) 2.94 cm (2 - 3.7) Volumes/Mass Name Value Normal Range LA ESV SP 4CH (A/L) 72.82 ml - LA ESV SP 2CH (A/L) 66.86 ml - LA ESV BP (A/L) 74.49 ml - LA ESV SP 4CH (MOD) 71.03 ml - LA ESV SP 2CH (MOD) 64.3 ml - LV EDV SP 4CH (MOD) 98.82 ml - LV ESV SP 4CH (MOD) 24.8 ml - EF SP 4CH (MOD) 74.9 % - LV EDV SP 2CH (MOD) 86.1 ml - LV ESV SP 2CH (MOD) 36.93 ml - EF SP 2CH (MOD) 57.11 % - LV EDV BP 94.4 ml - LV ESV BP 32.66 ml - BP EF (MOD) 65.4 % - Diastolic/Systolic Function Name Value Normal Range MV E-wave Vmax 1.04 m/sec - MV deceleration time 160.46 msec - MV A-wave Vmax 0.92 m/sec - MV E:A ratio 1.14 ratio - Aortic Valve Name Value Normal Range AV Vmax 2.12 m/sec - AV VTI 22.37 cm - AV peak gradient 17.95 mmHg - AV mean gradient 7.29 mmHg - LVOT diameter 2.01 cm - LVOT Vmax 1.8 m/sec - LVOT VTI 27.17 cm - LVOT peak gradient 12.91 mmHg - LVOT mean gradient 6.83 mmHg - SV LVOT 86.42 ml - ANITA (continuity Vmax) 2.7 cm2 - ANITA (continuity VTI) 3.86 cm2 - Ascending Ao 3.18 cm - Tricuspid Valve Name Value Normal Range TV E-wave Vmax 0.88 m/sec - TR Vmax 3.01 m/sec - TR peak gradient 36.27 mmHg - RAP 8 mmHg - RVSP 44 mmHg - IVC diameter 2.65 cm (1.2 - 2.3) Pulmonic Valve/Qp:Qs Name Value Normal Range PV Vmax 1.22 m/sec - PV peak gradient 5.91 mmHg - RVOT Vmax 0.87 m/sec - RVOT VTI 13.32 cm - RVOT peak gradient 3 mmHg - PV acceleration time 110.37 msec - [place]/IV: Voiding Method External Female Catheter IV Catheter Type [Right Foot] INT / Saline Lock IV Catheter Type [Left Forearm Peripheral IV ] IV Catheter Type [Left Wrist] INT / Saline Lock IV Catheter Type [Right Hand] INT / Saline Lock IV Catheter Type [Right INT / Saline Lock Antecubital] IV Catheter Type [Right Upper Mid-line arm] IV Catheter Type [Left Triple Lumen Cath Internal Jugular] IV Catheter Type [Left Hand] Peripheral IV IV Catheter Type [Left Peripheral IV Antecubital] Active Medications - Current Medications Current Medications: Generic Name Dose Route Start Last Admin Trade Name Freq PRN Reason Stop Dose Admin Acetaminophen 650 mg 10/05/20 16:34 11/19/20 05:39 Acetaminophen 325 Mg/10.15 Ml Oral Liqd Unit Dose FEEDTUBE 650 mg Q6H PRN Administration Non Cardiac Pain or Temp>100.5 Albuterol 2.5 mg 11/05/20 13:03 11/06/20 13:04 Albuterol 2.5 Mg/3 Ml Nebu IH 2.5 mg Q4HRT PRN Administration Shortness Of Breath Lipase/Protease/Amylase 1 each 10/05/20 11:09 Lipase 10,500/Protease 25,000/Amylase 43,750 (Units) Dr Barakat FEEDTUBE PRN PRN For Clogged Feeding Tube Enoxaparin Sodium 40 mg 10/22/20 10:00 11/18/20 11:03 Enoxaparin 40 Mg/0.4 Ml Inj SUB-Q 40 mg DAILY ERINN Administration Protocol Famotidine 20 mg 10/07/20 10:00 11/18/20 21:00 Famotidine 20 Mg Tab PO 20 mg BID ERINN Administration Furosemide 40 mg 10/17/20 10:00 11/18/20 11:03 Furosemide 40 Mg Tab PO 40 mg QDAY ERINN Administration Hydralazine HCl 20 mg 10/07/20 11:49 10/17/20 07:20 Hydralazine 20 Mg/1 Ml Inj IV 20 mg Q6H PRN Administration SBP >170 Hydralazine HCl 50 mg 10/17/20 09:00 11/19/20 06:07 Hydralazine 25 Mg Tab PO 50 mg Q8HR ERINN Administration Dextrose 1,000 mls @ 75 mls/hr 10/13/20 11:00 11/19/20 06:05 D10w IV 75 mls/hr DIRECT ERINN Administration Labetalol HCl 300 mg 11/16/20 17:00 11/18/20 20:53 Labetalol 200 Mg Tab PO 300 mg TID ERINN Administration Simple Syrup 15 ml 10/05/20 11:09 Simple Syrup 15 Ml FEEDTUBE PRN PRN Hypoglycemia Simple Syrup 30 ml 10/05/20 11:09 Simple Syrup 15 Ml FEEDTUBE PRN PRN Hypoglycemia Sodium Bicarbonate 325 mg 10/05/20 11:09 11/16/20 16:54 Sodium Bicarbonate 325 Mg Tab FEEDTUBE 325 mg PRN PRN Administration For Clogged Feeding Tube Sodium Bicarbonate 1,300 mg 10/13/20 14:00 11/18/20 20:53 Sodium Bicarbonate 650 Mg Tab PO 1,300 mg TID ERINN Administration Topiramate 50 mg 10/05/20 11:00 11/18/20 21:02 Topiramate Tab 25 Mg Tab PO 50 mg Q12HR ERINN Administration Nutrition/Malnutrition Assess - Dietary Evaluation Nutrition/Malnutrition Findings: Nutrition Notes Start: 10/04/20 11:13 Freq: Status: Active Protocol: Document 11/17/20 12:57 AB (Rec: 11/17/20 13:39 AB [id number]) Co-Sign 11/17/20 12:57 NHALL Nutrition Notes Initial or Follow up Reassessment Current Diagnosis Acute Kidney Injury, Respiratory Failure Other Pertinent Diagnosis C-Diff, Cardiac arrest, s/p c- section and supracervical hysterectomy Current Diet Jevity 1.2 at 60 ml/hr Labs/Tests Reviewed Pertinent Medications Lasix D10w at 75ml/hr Height 5 ft 8 in Weight 105 kg [place] Body Weight (kg) 63.63 BMI 35.2 Weight change and time frame 11% wt loss in 1 mth Weight Status Obese Subjective/Other Information F/U for TF tolerance, POC. Pt on T-piece. Still waiting for SNF placement. Per RN, pt is tolerating TF running at goal. Percent of energy/protein needs met: 100%/100% Burn Absent Trauma Absent GI Symptoms None Food Allergy Yes Current % PO Negligible Minimum of two criteria Yes Interpretation of Weight Loss (severe) >5% in 1 month Fluid Accumulation Mild (non-severe) #2 Nutrition Diagnosis Malnutrition Etiology critically ill status As Evidenced by Signs and Symptoms fluid accumulation and wt loss of 11% in 1 month #1 Nutrition Diagnosis Inadequate oral intake Diagnosis Progress(for reassessment Continues documentation) Is patient on ventilator? No Is Patient Ambulatory and/or Out of Bed No REE-([place]-St. Jeor-confined to bed) 2172.012 Kcal/Kg value to use for calculation 16 Approximate Energy Requirements Using 1680 kcal/Kg Calculation Used for Recommendations Kcal/kg Additional Notes Protein needs are 68-85g (0.8- 1g/kg AdjBW 85kg) Fluid needs are 1ml/kcal Nutrition Intervention Change Diet Order: Continue Nutrition Support: Jevity 1.2 at 60ml/hr. Flush 100ml q4h. Kcal 1,782 Protein (gm) 87 Fluid (mL) 1,259 Goal #1 TF tolerance Goal #2 Meet at least 75% of energy and protein needs Anticipated Discharge Needs: Unable to determine at this time Follow-Up By: 11/24/20 Additional Comments F/U for stable TF, weight, POC
[2020-11-19] MEDS: ENOXAPARIN 40 MG/0.4 ML INJ SUB-Q SCH (11:08)
[2020-11-19] MEDS: TOPIRAMATE TAB 25 MG TAB PO SCH ×2 (11:09→21:46)
[2020-11-19] MEDS: FAMOTIDINE 20 MG TAB PO SCH ×2 (11:09→21:45)
[2020-11-19] MEDS: SODIUM BICARBONATE 650 MG TAB PO SCH ×3 (11:10→20:59)
[2020-11-19] MEDS: FUROSEMIDE 40 MG TAB PO SCH (11:11)
[2020-11-19] MEDS ORDERED: LORazepam 2 MG/ML VIAL IV ONE (21:20)
[2020-11-19] MEDS ORDERED: LORazepam 2 MG/ML VIAL ONE (21:22)
[2020-11-20] MEDS: ACETAMINOPHEN 325 MG/10.15 ML ORAL LIQD UNIT DOSE FEEDTUBE PRN ×2 (01:47→23:05)
[2020-11-20] MEDS: hydrALAZINE 25 MG TAB PO SCH ×4 (02:23→23:09)
--- NOTE | 2020-11-20 08:13 | Progress Note ---
Assessment and Plan - Patient Problems (1) Encephalopathy Current Visit: Yes Status: Acute Plan to address problem: patient plagued with occasional temp spikes and intermittent hypoglycemia will refer to medicine team for advice neurologically remains unchanged (2) Fever Current Visit: Yes Status: Acute Subjective - Subjective Date of service: 11/20/20 Principal diagnosis: Eclampsia/HELLP Syndrome, ADOLPH, DIC; s/p , s/p supracervical hyst Interval history: 30y/o POD #49 s/p supracervical hysterectomy for eclampsia and DIC. Patient remains unresponsive. Temp spike this am. Current vital signs wnl. Patient resting comfortably and currently sleeping. Objective - Vital Signs Latest vital signs: Vital Signs Temp Pulse Resp BP Pulse Ox Pulse Ox 11/20/20 07:00 99.4 F 11/20/20 06:31 101 H 110/60 99 11/20/20 06:01 85 37 H 110/60 98 11/20/20 05:31 96 H 18 93/50 95 11/20/20 05:01 84 20 93/50 98 11/20/20 04:31 86 19 94/55 98 11/20/20 04:01 82 18 164/141 98 11/20/20 04:00 100.0 F H 83 11/20/20 03:31 84 21 164/141 97 11/20/20 03:01 103 H 28 H 164/141 99 11/20/20 02:56 100 11/20/20 02:31 87 20 107/72 98 11/20/20 02:01 102 H 25 H 107/72 98 11/20/20 01:31 102 H 27 H 124/63 97 11/20/20 01:01 104 H 20 123/75 96 11/20/20 00:31 91 H 15 123/75 98 11/20/20 00:01 110 H 27 H 123/75 99 11/20/20 00:00 101.0 F H 109 H 11/19/20 23:31 96 H 14 123/75 98 11/19/20 23:01 99 H 12 123/75 98 11/19/20 22:31 87 19 123/75 98 11/19/20 22:01 100 H 11 L 123/75 97 11/19/20 21:57 100 H 13 123/75 97 11/19/20 21:31 106 H 29 H 117/69 92 11/19/20 21:01 106 H 29 H 117/69 99 11/19/20 20:33 99 11/19/20 20:31 109 H 24 117/69 98 11/19/20 20:01 100 H 14 117/69 98 11/19/20 20:00 100.3 F H 98 H 11/19/20 19:31 101 H 26 H 117/69 98 11/19/20 19:01 97 H 19 117/69 99 11/19/20 18:31 101 H 23 106/62 11/19/20 18:01 90 19 106/62 11/19/20 17:31 84 16 105/69 11/19/20 17:01 101 H 22 105/69 11/19/20 16:31 105 H 33 H 105/69 46 L 11/19/20 16:01 103 H 29 H 104/64 99 11/19/20 16:00 98.9 F 100 11/19/20 15:31 100 H 29 H 104/64 97 11/19/20 15:01 83 22 114/61 99 11/19/20 14:31 79 21 114/61 98 11/19/20 14:01 99 H 23 114/61 98 11/19/20 13:31 84 19 114/61 97 11/19/20 13:01 79 11 L 114/61 96 11/19/20 12:31 85 15 98 11/19/20 12:01 91 H 24 119/73 97 11/19/20 12:00 99.0 F 11/19/20 11:31 104 H 24 119/73 99 11/19/20 11:01 90 19 119/73 97 11/19/20 10:31 86 24 123/71 97 11/19/20 10:01 102 H 21 123/71 98 11/19/20 10:00 100 11/19/20 09:31 104 H 19 123/71 100 11/19/20 09:01 106 H 23 123/71 100 11/19/20 08:31 104 H 27 H 123/71 99 Intake and Output 11/19/20 11/20/20 11/20/20 22:59 06:59 14:59 Intake Total 1307.5 480 Output Total 2 450 Balance 1305.5 30 Intake: IV 787.5 D10w 1,000 ml @ 75 mls/hr 787.5 IV DIRECT ERINN Rx#: [id number] Oral 120 Intake, Free Water 220 360 Tube Feeding 300 Output: Urine 450 Void 450 Pad Count 2 Other: Intake, Other Source Saline Solution Saline Solution Total, Intake Amount 60 120 Total, Output Amount 450 Voiding Method External Female Catheter External Female Catheter # Voids Void 4 # Bowel Movements 1 Weight 105 kg
[2020-11-20] MEDS: SODIUM BICARBONATE 650 MG TAB PO SCH ×2 (10:00→20:36)
[2020-11-20] MEDS: FAMOTIDINE 20 MG TAB PO SCH ×2 (10:00→23:09)
[2020-11-20] MEDS: FUROSEMIDE 40 MG TAB PO SCH (10:00)
[2020-11-20] MEDS: ENOXAPARIN 40 MG/0.4 ML INJ SUB-Q SCH (10:01)
[2020-11-20] MEDS: DEXTROSE 10% IN WATER 1,000 ML IV SCH ×2 (10:04→23:14)
[2020-11-20] MEDS: TOPIRAMATE TAB 25 MG TAB PO SCH ×2 (10:04→23:09)
--- NOTE | 2020-11-21 01:12 | Progress Note ---
Assessment and Plan Critical care statement The high probability of a clinically significant, sudden or life threatening deterioration of the [MULTIPLE ORGAN] system(s) required my full and direct attention, intervention and personal management. The aggregate critical care time was [33] minutes. This time is in addition to time spent performing reported procedures but includes the following: [X] Data Review and interpretation [X] Patient assessment and monitoring of vital signs [X] Documentation [X] Medication orders and management Assessment and Plan 30 y/o female patient with Eclampsia/help syndrome, s/p emergent section with DIC, hemorrhage, supracervical abdominal hysterectomy, acute respiratory failure , tracheostomy on T-piece with morbid obesity, s/p cardiac arrest 12/08/2019 status post CPR per ACLS, acute hypoxic brain injury Acute kidney injury improved, severe shock requiring pressors, DIC septic shock improved, history of C. difficile colitis completed treatment with vancomycin. Tracheostomy on T-piece, continues to require 5 L of oxygen. Herpetic flareup, ID started treatment with antibiotics, patient is waiting for SNF placement DC planning per case management Assessment and plan: --Persistent hypoglycemia; patient is requiring continuous D10 W infusion CT abdomen done to rule out insulinoma, CT abdomen report negative for pancreatic tumor We will closely monitor --Cardiac arrest; 10/07/2020 ,status post CPR --Acute hypoxic brain injury; Supportive care, closely monitor --Acute hypoxic respiratory failure: Tracheostomy on T-piece , today on 4.5 L oxygen, saturating 100% Supportive care, Pulmonary critical following COVID-19 negative C. difficile positive; Patient on contact isolation Completed treatment --Afebrile: Blood, urine, tracheal aspirate cultures New cultures negative to date Monitor off antibiotics Closely monitor --Sepsis; received antibiotics Continue to monitor off antibiotics ID following --COVID-19 test negative; 10/08/2020 --C. difficile colitis test; positive; 10/16/2020 --Acute metabolic encephalopathy --Acute kidney injury; vasomotor nephropathy Resolved, renal function within normal limits, closely monitor --Shock; monitor of pressors Blood pressures reasonable level --DIC; sepsis, septic shock, resolved --History of preeclampsia; / hemorrhage Status post hysterectomy --History of C. difficile colitis; completed oral vancomycin --DVT/SVT and right upper extremity Very poor prognosis, Consults recommendations noted and appreciated We will closely monitor the patient and adjust management as needed Plan of care reviewed with the patient's nurse. Subjective Date of service: 11/20/20 Principal diagnosis: Eclampsia/HELLP Syndrome, ADOLPH, DIC; s/p , s/p supracervical hyst Interval history: 30 y/o female patient with Eclampsia/help syndrome, s/p emergent section with DIC, hemorrhage, supracervical abdominal hysterectomy, acute re spiratory failure , tracheostomy on T-piece with morbid obesity, s/p cardiac arrest 12/08/2019 status post CPR per ACLS, acute hypoxic brain injury Acute kidney injury improved, severe shock requiring pressors, DIC septic shock improved, history of C. difficile colitis on vancomycin. Tracheostomy on T-piece, continues to require 5 L of oxygen. Brief history; 30 year old -[place] female CHE 10/25/20 at 36w5d who presents with seizures in triage on 10/02/20. Pt was not able to provide history but per pt's , she presented to the hospital to return a 24 hour urine specimen f or analysis. She then suddenly reported that she did not feel good. She was taken to labor and delivery and shortly after arrival, she began seizing. During this time, a code met was called because the patient became hypoxic. She was then noted to be without a pulse. Chest compressions were started immediately, and the patient was emergently taken to the operating room for delivery of the fetus. Off note, This patient has had care at [facility] with comanagement by [facility] since 11 wks complicated by ADHD, morbid obesity, generalized anxiety disorder, panic attacks, chronic narcotic use, fibromyalgia, GERD, Irritable Bowel Syndrome, Migraines, h/o endometrial ablation and ovarian vein embolization, genital herpes, insomnia, LGA fetus, nausea and vomiting, polyhydramnios, quad screen positive for Down's Syndrome, and previous x 3. She is GBS negative. , Patient tracheostomy on ventilatory support, unable to wean, continue supportive care poor prognosis 11:30: Pt brought to L&D triage for evaluation of possible labor. Pt accompanied by her spouse. Pt spouse poor historian; unable to obtain history- allergies at this time. Pt taken from registration to triage area via WC. Pt unresponsive, actively seizing with snorous respirations. nurse informatics educator, Kassy, called and requesting assistance. 11:35: Multiple staff at bedside. Pt 02 sat 67% on nonrebreather, unable to read BP . Yifan Theodore CRNA, at bedside for intubation and assistance with IV insertion. INT attempt by multiple RNs unsuccessful at this time. 11:42: Pt being bagged by KORIN, 02% 79%. No pulse palpated, compressions on at this time; bharati young called and Dr. Newberry preparing OR for emergent c/s. 11:44: Continued compressions on stretcher while transporting pt to OR 1. Pt being bagged with jaw thrust manuever in place by KORIN Stringer student. 11:45: Arrival to OR 1. Dr. Newberry and Dr. Portillo present for emergent c/s. Code team arrived for continued care. patient revived and c/s done Patient has been bleeding from C/s site followed by supracervical hysterectomy for severe bleeding, Patient transfused multiple units of PRBC, Patient in DIC. Patient transferred to the ICU Hospital course; 10/03. Patient seen and examined at bedside this morning. Patient is nonresponsive and mechanically ventilated. On pressors. Labs reviewed-has leukocytosis, anemia, thrombocytopenia, ADOLPH and lactic acidosis. Started on IV antibiotics to cover possible sepsis secondary to DIC. Hematology oncology recommendations appreciated-needs additional cryoprecipitate and FFP. Monitor D-dimer, fibrinogen and frequent labs. Nephrology consulted for lactic acidosis and ADOLPH. 10/04. Remains mechanically ventilated. Kevin antibiotics. Labs shows improved acidosis - lactic acid 3.5. Hb drop noted. Getting transfused 2 units PRBCs. Platelet count is ~40k. Continue to monitor labs closely. Critical care team on board. 10/05; xray reviewed, concerning for multifocal infilrate, likely underlying Pneumonia, will add ID consult to assist with management of this critically ill patient, start tube feed, closely monitor renal system 10/06: Resumed care, remains on mechanical ventilation. No active bleeding, H&H stable. Continue to monitor CBC and BMP. Continue IV antibiotic for underlying pneumonia. Follow critical care and ID recommendation. 10/07: Remains on mechanical ventilation. No active bleeding, H&H stable. Critical care following, wean off ventilation as tolerated. 10/08: Patient had another cardiac arrest last night. Remains on mechanical ventilation, update family. Continue supportive care -poor prognosis 10/09: Called patient mother and discussed about patient care and management. Answered all question to best of my knowledge and family satisfaction. Patient remains on mechanical ventilation, cardiac arrest x2 so far. Critically sick, poor prognosis 10/10: remains on mechanical ventilation. h/h stable, no active bleeding. monitor CBC/BMP 10/11: WBC trended up with diarrhea, started on vancomycin po. remains on MV, off pressor, tolerating TF 10/12: remains on MV, off pressor, tolerating TF. called family for update but unable to reach, could not leave message as it was full. cont supportive care, wean off vent as tolerated. 10/13/2020; patient is on mechanical ventilation, tolerating tube feeding. Patient has labored breathing. Neuro was consulted and recommend MRI. Patient is on Precedex. Rectal tube in place. 10/14/2020; patient is on mechanical ventilation, Precedex. Patient had fever and blood culture ordered. Patient is on IV vancomycin per ID recommendation. Neuro consulted and recommend MRI. Continue to monitor. Prognosis is guarded. 10/15/2020; patient is on mechanical ventilation, Precedex. Patient had fever and blood culture ordered. Patient is on IV vancomycin per ID recommendation. Neuro consulted and recommend MRI. Continue to monitor. Prognosis is guarded. 2: Remains with C.DIFF and Bactermia, Poor prognosis. No purposeful movement. MRI and EEG discussed with Intensvisit, Continue aggressive BP control. 3: Blood pressure better controlled MRI done 10/15 shows mild improvement in edema. We will continue to monitor mother was at bedside yesterday. Nursing documentation trach and PEG discussed with the mother including goals of care. She is still in denial about the gravity of her daughters her condition which is understandable considering her age. Continue aggressive management at this time. Await for bacteremia to clear by ID before placing PICC line. 10/19: Patient for possible PEG and Trach, ID following, repeat cultures remain negative. Poor prognosis 10/20: Pt noted to DVT and SVT in the RUE, Vascular consult and will also obtain Hematology for possible considering changing in Anticoagulation. CONTINUE TO MONITOR H/H and PLT. Family updated by [employer]. Heparin gtt started. Will check CBC and BMP 10/21: Continue supporive care, Diarrhea now resolving, But still with persistent Fever, May need repeat CT/AP per ID, still with profused Encephalopathy 10/22: Continue supportive care, weaning, awaiting repeat Imaging. FOLLOW Fever curve. Enoxparin restarted 10/23: Continue supportive care, wean as tolerated. 10/24; Started on CPAP trial, discussed with pulmonary, still with diarrhea. 10/25: Patients seen and examined, no clinical changes, still with diarrhea. ?meaningful recovery. 10/26: Clinically unchanged, continue CPAP trial, Will discuss with Neurology about re-evaluation, ?Need for repeat CT head. ?PRESS considering initial elevated BP, now stable. 10/27; tracheostomy on vent, weaning trials, vital signs noted, poor prognosis 10/28; unable to wean, tracheostomy on vent. Sepsis. Continue current management. Consults and recommendations noted and appreciated 10/30/2020;Patient on T-piece 5 L of oxygen not in acute distress, noncommunicative 11/02/2020; patient on T-piece 5 L of oxygen 11/03/2020; patient's fever slightly improved low-grade, continue current management, remains on T-piece with 5 L of oxygen 11/04/2020; T-max last 24 hours 100.3 F, new cultures negative to date, monitor off antibiotics Patient is off Levophed, blood pressures reasonable level, tracheostomy on T- piece 3 to 5 L nasal cannula oxygen 11/05/2020; tracheostomy on T-piece patient remains on 5 L of nasal cannula oxygen, unresponsive severe hypoxic brain injury I called patient's mother Ms. Pamela Bassett as well as patient's spouse Mr. Danilo Dimas at [phone] unable to reach them Left voicemail on Ms. Pamela Bassettz phone and encouraged him to call back 11/06/2020; I tried to call again today Ms. Pamela Bassett to discuss patient's c ondition and treatment plan and update consultants recommendations and patient's prognosis., unable to reach her 11/07/20 Will try LTAC/Hospice 11/08/20 Same condition 11/09/2020 Same condition 11/10/2020; family conference was held by case management yesterday 11/09/2020, family decided and agreed for SNF placement 11/11/2020; patient seen and examined, clinically no change tracheostomy on 5 L o f nasal cannula oxygen, hemodynamically and clinically stable for discharge To LTAC versus SNF, DC planning per case management 11/12/2020; clinically no change, continue current management, DC planning per case management possible SNF placement 11/13/2020; patient is receiving herpes flareup treatment per ID 11/14/2020; clinically no change, awaiting SNF placement 11/15/2020; clinically no change, tracheostomy on T-piece on 5 L oxygen, awaiting placement 11/16/2020; patient awaiting placement 11/18/2020; abdominal CT scan negative for insulinoma or pancreatic tumor ,clinically no change Awaiting SNF placement 11/19/2020; remains on 4 L of oxygen tracheostomy via T-piece, awaiting SNF placement 11/20/2020 Awaiting SNF placement Objective - Exam Narrative Exam: Patient with tracheostomy - Constitutional Vitals: Vital Signs - 12hr 11/20/20 11/20/20 11/20/20 13:31 14:01 14:31 Temperature Pulse Rate 98 H 98 H 85 Pulse Rate [ From Monitor] Respiratory Rate Blood Pressure O2 Sat by Pulse 98 98 98 Oximetry O2 Sat by Pulse Oximetry [ Assessment] 11/20/20 11/20/20 11/20/20 15:01 15:31 16:00 Temperature 99.3 F Pulse Rate 106 H 100 H Pulse Rate [ From Monitor] Respiratory Rate Blood Pressure O2 Sat by Pulse 99 99 Oximetry O2 Sat by Pulse Oximetry [ Assessment] 11/20/20 11/20/20 11/20/20 16:07 16:31 16:57 Temperature Pulse Rate 103 H 88 Pulse Rate [ From Monitor] Respiratory 19 18 Rate Blood Pressure 124/81 O2 Sat by Pulse 97 Oximetry O2 Sat by Pulse 98 Oximetry [ Assessment] 11/20/20 11/20/20 11/20/20 17:01 17:31 18:01 Temperature Pulse Rate 107 H 97 H 112 H Pulse Rate [ From Monitor] Respiratory 16 19 26 H Rate Blood Pressure 124/81 103/59 103/59 O2 Sat by Pulse 97 97 98 Oximetry O2 Sat by Pulse Oximetry [ Assessment] 11/20/20 11/20/20 11/20/20 18:03 18:31 19:01 Temperature Pulse Rate 112 H 106 H 108 H Pulse Rate [ From Monitor] Respiratory 25 H 34 H 27 H Rate Blood Pressure 103/59 103/59 103/59 O2 Sat by Pulse 99 98 99 Oximetry O2 Sat by Pulse Oximetry [ Assessment] 11/20/20 11/20/20 11/20/20 19:31 20:00 20:01 Temperature 99.9 F H Pulse Rate 104 H 108 H 96 H Pulse Rate [ 108 H From Monitor] Respiratory 24 14 20 Rate Blood Pressure 103/59 114/66 O2 Sat by Pulse 98 99 99 Oximetry O2 Sat by Pulse Oximetry [ Assessment] 11/20/20 11/20/20 11/20/20 20:31 20:36 20:58 Temperature Pulse Rate 114 H 111 H Pulse Rate [ From Monitor] Respiratory 39 H Rate Blood Pressure 114/66 114/66 O2 Sat by Pulse 98 99 Oximetry O2 Sat by Pulse Oximetry [ Assessment] 11/20/20 11/20/20 11/20/20 21:00 21:01 21:31 Temperature Pulse Rate 99 H 96 H Pulse Rate [ From Monitor] Respiratory 18 13 Rate Blood Pressure 112/70 112/70 O2 Sat by Pulse 99 97 Oximetry O2 Sat by Pulse 99 Oximetry [ Assessment] 11/20/20 11/20/20 11/20/20 22:01 22:31 23:01 Temperature Pulse Rate 87 86 95 H Pulse Rate [ From Monitor] Respiratory 22 19 21 Rate Blood Pressure 103/67 103/67 103/67 O2 Sat by Pulse 98 99 98 Oximetry O2 Sat by Pulse Oximetry [ Assessment] 11/20/20 11/20/20 11/20/20 23:05 23:09 23:31 Temperature Pulse Rate 98 H 103 H Pulse Rate [ From Monitor] Respiratory 16 33 H Rate Blood Pressure 114/76 110/61 O2 Sat by Pulse 99 Oximetry O2 Sat by Pulse Oximetry [ Assessment] 11/21/20 00:00 Temperature 100.1 F H Pulse Rate 108 H Pulse Rate [ 108 H From Monitor] Respiratory 28 H Rate Blood Pressure 111/61 O2 Sat by Pulse 99 Oximetry O2 Sat by Pulse Oximetry [ Assessment] General appearance: Present: no acute distress, well-nourished - EENT Eyes: PERRL, EOM intact ENT: hearing intact, clear oral mucosa Ears: bilateral: normal - Neck Neck: supple, normal ROM, other (Trach in place) - Respiratory Respiratory effort: normal Respiratory: bilateral: CTA - Breasts Breasts: normal - Cardiovascular Heart rate: 78 Rhythm: regular Heart Sounds: Present: S1 & S2. Absent: gallop, rub Extremities: pulses intact, No edema, normal color, Full ROM - Gastrointestinal General gastrointestinal: Present: soft, non-tender, non-distended, normal bowel sounds - Genitourinary Female genitourinary: normal - Integumentary Integumentary: clear, warm, dry - Musculoskeletal Musculoskeletal: generalized weakness - Neurologic Neurologic: other - Psychiatric Psychiatric: other (Unresponsive) - Labs CBC & Chem 7: 11/19/20 05:23 11/13/20 10:05 HEART Score - HEART Score Age: < 45 Risk factors: 1-2 risk factors - Critical Actions Critical Actions: >7 pts:50-65% risk of adverse cardiac event. Early invasive measures
[2020-11-21] MEDS: hydrALAZINE 25 MG TAB PO SCH ×3 (06:23→22:02)
[2020-11-21] MEDS: ACETAMINOPHEN 325 MG/10.15 ML ORAL LIQD UNIT DOSE FEEDTUBE PRN (06:25)
[2020-11-21] MEDS: TOPIRAMATE TAB 25 MG TAB PO SCH ×2 (10:19→22:05)
[2020-11-21] MEDS: SODIUM BICARBONATE 650 MG TAB PO SCH ×5 (10:22→20:27)
[2020-11-21] MEDS: FUROSEMIDE 40 MG TAB PO SCH (10:23)
[2020-11-21] MEDS: FAMOTIDINE 20 MG TAB PO SCH ×2 (10:23→22:05)
[2020-11-21] MEDS: ENOXAPARIN 40 MG/0.4 ML INJ SUB-Q SCH (10:24)
[2020-11-21] MEDS ORDERED: LORazepam 2 MG/ML VIAL IV NR (13:02)
[2020-11-21] MEDS: DEXTROSE 10% IN WATER 1,000 ML IV SCH ×2 (13:22→23:55)
--- NOTE | 2020-11-21 14:25 | Progress Note ---
Assessment and Plan 30 y/o female with Eclampsia, s/p emergent section with DIC, acute respiratory failure and worsening renal function. Post cardiac arrest with residual anoxic encephalopathy. Remain hypoglycemic requiring D10 infusion continuously 11/21/2020: Patient remain unchanged quite agitated today. We will try small dose of IV Ativan. Prognosis remains guarded. 11/19/20: Pulm status stable. Will see as needed. Primary to continue work up of hypoglycemia 11/18/20: Same recs as 11/1711/17/20: I have no further ideas in work up in regards to persistent hypoglycemia, despite continuous infusion of D10. All of her markers are el evated that would suggest insulinoma but unable to prove this with imaging. Patient needs transfer to a tertiary care center with Endocrinology available for consultation. Pulm status stable. Will see PRN. 11/16/20: STeroids have not helped so will stop today. Obtain CT scan as instr ucted to order by Radiology. If tumor present will need transfer to tertiary care center with inpatient endocrinology. Prognosis remains guarded. 11/15/20: Will go to radiology tomorrow morning. Will likely stop stress dose steroids tomorrow as no real improvement in sugars. COntinue Trach collar. Needs rehab. ProInsulin is back at 38.2 11/14/20: Will speak with radiology again on Monday to ask them to help me with the ordering of the scan. Continue stress dose steroids at least through tomorrow. No real change in blood sugars as of yet. 11/13/20: Attempt a trial of stress dose steroids to see if this improves sugar levels. I have called CT 3x but no answer. Will go down there and see if they are able to do a CT of the abdomen with pancreas protocol to observe for insulinoma. Continue supportive care and airway maintenance therapy. 11/12/20: Continue D10. I have reached out to an endocrine physician from an outside hospital who is willing to help me with the work up and possible help with diagnosis. Subjective Date of service: 11/21/20 Principal diagnosis: Eclampsia/HELLP Syndrome, ADOLPH, DIC; s/p , s/p supracervical hyst Interval history: Patient remains on trach with a T-piece somewhat agitated. Otherwise no new symptoms. Objective Vital Signs - 12hr 11/21/20 11/21/20 11/21/20 02:31 03:01 03:31 Temperature Pulse Rate 105 H 106 H 106 H Pulse Rate [ From Monitor] Respiratory 16 36 H 32 H Rate Blood Pressure 109/76 128/51 128/51 O2 Sat by Pulse 99 99 98 Oximetry O2 Sat by Pulse Oximetry [ Assessment] 11/21/20 11/21/20 11/21/20 04:00 04:31 05:00 Temperature 100.4 F H Pulse Rate 90 80 102 H Pulse Rate [ 93 H From Monitor] Respiratory 18 18 23 Rate Blood Pressure 112/67 112/67 115/73 O2 Sat by Pulse 98 98 96 Oximetry O2 Sat by Pulse Oximetry [ Assessment] 11/21/20 11/21/20 11/21/20 05:31 06:00 06:22 Temperature Pulse Rate 86 84 Pulse Rate [ From Monitor] Respiratory 17 17 Rate Blood Pressure 115/73 106/65 O2 Sat by Pulse 97 97 Oximetry O2 Sat by Pulse 99 Oximetry [ Assessment] 11/21/20 11/21/20 11/21/20 06:23 06:31 07:00 Temperature Pulse Rate 82 107 H 96 H Pulse Rate [ From Monitor] Respiratory 24 20 Rate Blood Pressure 121/48 121/48 108/73 O2 Sat by Pulse 98 97 Oximetry O2 Sat by Pulse Oximetry [ Assessment] 11/21/20 11/21/20 11/21/20 07:31 08:00 08:07 Temperature 99.6 F Pulse Rate 89 85 Pulse Rate [ 93 H From Monitor] Respiratory 19 21 Rate Blood Pressure 108/73 106/68 O2 Sat by Pulse 98 98 99 Oximetry O2 Sat by Pulse 97 Oximetry [ Assessment] 11/21/20 11/21/20 11/21/20 09:00 10:00 10:23 Temperature Pulse Rate 87 104 H 101 H Pulse Rate [ From Monitor] Respiratory 18 28 H Rate Blood Pressure 108/64 116/68 O2 Sat by Pulse 97 98 Oximetry O2 Sat by Pulse Oximetry [ Assessment] 11/21/20 11/21/20 11/21/20 11:01 11:58 12:00 Temperature 98.5 F Pulse Rate 96 H 92 H Pulse Rate [ 93 H From Monitor] Respiratory 24 22 Rate Blood Pressure 99/44 106/73 O2 Sat by Pulse 98 100 Oximetry O2 Sat by Pulse Oximetry [ Assessment] 11/21/20 13:23 Temperature Pulse Rate Pulse Rate [ From Monitor] Respiratory Rate Blood Pressure 99/65 O2 Sat by Pulse Oximetry O2 Sat by Pulse Oximetry [ Assessment] Constitutional: comatose, other (s/p trach) Eyes: non-icteric ENT: oropharynx moist Neck: other (large in cirumference) Effort: normal Ascultation: Bilateral: clear, diminished breath sounds, rhonchi, other (coarse BS bilaterally) Percussion: Bilateral: not dull Cardiovascular: regular rate and rhythm, other (no mrg) Gastrointestinal: normoactive bowel sounds, soft Extremities: no cyanosis, pink and warm Neurologic: other (unresponsive, not following commands, not tracking) Psychiatric: other (unable to assess) CBC and BMP: 11/19/20 05:23 11/13/20 10:05 ABG, PT/INR, D-dimer: ABG ABG pH 7.459 pH Units (7.350-7.450) H 10/26/20 10:30 POC ABG pCO2 20.7 mmHg (32.0-48.0) L 10/13/20 07:18 ABG pCO2 32.4 mm Hg 10/26/20 10:30 POC ABG pO2 137.9 mmHg (83-108) H 10/13/20 07:18 ABG pO2 112.2 mm Hg (80.0-90.0) H 10/26/20 10:30 POC ABG HCO3 14.8 10/13/20 07:18 ABG O2 Saturation 98.2 % (95.0-99.0) 10/26/20 10:30 PT/INR, D-dimer PT 13.6 Sec. (12.2-14.9) 10/21/20 13:54 INR 1.06 (0.87-1.13) 10/21/20 13:54 D-Dimer 1974.47 ng/mlDDU (0-234) H 11/11/20 13:50 Abnormal lab findings: Abnormal Labs 10/02/20 10/02/20 10/02/20 12:03 12:18 12:18 WBC 14.9 H RBC Hgb 9.1 L Hct MCV MCH 22 L MCHC 28 L RDW 17.6 H Plt Count 102 L Lymph % (Auto) [place] % (Auto) Lymph # (Auto) [place] # (Auto) Baso # (Auto) Seg Neutrophils % Seg Neuts % (Manual) 36.0 L Lymphocytes % (Manual) 49.0 H Monocytes % (Manual) Nucleated RBC % 6.0 H Seg Neutrophils # Seg Neutrophils # Man Lymphocytes # (Manual) 7.3 H Monocytes # (Manual) PT INR APTT Fibrinogen D-Dimer ABG pH POC ABG pCO2 POC ABG pO2 ABG pO2 ABG HCO3 ABG Base Excess ABG Hemoglobin ABG Oxyhemoglobin ABG Sodium ABG Potassium ABG Chloride ABG Glucose VBG pH Oxyhemoglobin Carboxyhemoglobin Sodium 134 L Potassium Chloride Carbon Dioxide 12 L BUN 6 L Creatinine Glucose 390 H POC Glucose 451 H Random Insulin C-Peptide Lactic Acid Calcium Ionized Calcium Phosphorus Magnesium AST 135 H ALT 85 H Alkaline Phosphatase 172 H Lactate Dehydrogenase 641 H NT-Pro-B Natriuret Pep Total Protein 5.4 L Albumin 2.3 L Arterial Blood Glucose Arterial Blood Ionized Calcium Urine WBC (Auto) Vancomycin Trough Phenytoin Crossmatch 10/02/20 10/02/20 10/02/20 12:50 13:05 13:05 WBC 38.6 H RBC Hgb 8.9 L Hct 29.0 L MCV 73 L MCH 22 L MCHC RDW 17.2 H Plt Count Lymph % (Auto) [place] % (Auto) Lymph # (Auto) [place] # (Auto) Baso # (Auto) Seg Neutrophils % Seg Neuts % (Manual) Lymphocytes % (Manual) Monocytes % (Manual) Nucleated RBC % 2.0 H Seg Neutrophils # Seg Neutrophils # Man 20.1 H Lymphocytes # (Manual) 10.4 H Monocytes # (Manual) 2.3 H PT INR APTT Fibrinogen D-Dimer ABG pH POC ABG pCO2 POC ABG pO2 ABG pO2 ABG HCO3 ABG Base Excess ABG Hemoglobin ABG Oxyhemoglobin ABG Sodium ABG Potassium ABG Chloride ABG Glucose VBG pH Oxyhemoglobin Carboxyhemoglobin Sodium Potassium Chloride Carbon Dioxide BUN Creatinine Glucose POC Glucose Random Insulin C-Peptide Lactic Acid Calcium Ionized Calcium Phosphorus Magnesium AST 184 H ALT 113 H Alkaline Phosphatase Lactate Dehydrogenase 769 H NT-Pro-B Natriuret Pep Total Protein Albumin Arterial Blood Glucose Arterial Blood Ionized Calcium Urine WBC (Auto) Vancomycin Trough Phenytoin Crossmatch See Detail 10/02/20 10/02/20 10/02/20 16:25 16:35 16:35 WBC RBC Hgb Hct MCV MCH MCHC RDW Plt Count Lymph % (Auto) [place] % (Auto) Lymph # (Auto) [place] # (Auto) Baso # (Auto) Seg Neutrophils % Seg Neuts % (Manual) Lymphocytes % (Manual) Monocytes % (Manual) Nucleated RBC % Seg Neutrophils # Seg Neutrophils # Man Lymphocytes # (Manual) Monocytes # (Manual) PT INR APTT Fibrinogen D-Dimer ABG pH 7.031 L* POC ABG pCO2 POC ABG pO2 ABG pO2 116.8 H ABG HCO3 12.7 L ABG Base Excess -16.9 L ABG Hemoglobin 7.8 L ABG Oxyhemoglobin ABG Sodium ABG Potassium ABG Chloride ABG Glucose VBG pH Oxyhemoglobin 94.9 L Carboxyhemoglobin Sodium Potassium Chloride Carbon Dioxide BUN Creatinine Glucose 403 H POC Glucose Random Insulin C-Peptide Lactic Acid 11.40 H* Calcium 6.3 L D Ionized Calcium Phosphorus Magnesium AST 70 H ALT Alkaline Phosphatase Lactate Dehydrogenase NT-Pro-B Natriuret Pep Total Protein 1.9 L D Albumin 1.2 L Arterial Blood Glucose Arterial Blood Ionized Calcium Urine WBC (Auto) Vancomycin Trough Phenytoin Crossmatch 10/02/20 10/02/20 10/02/20 18:18 18:18 22:30 WBC 11.5 H RBC 2.06 L Hgb 5.5 L* D Hct 17.3 L* D MCV MCH 27 L MCHC RDW 19.5 H Plt Count 60 L Lymph % (Auto) [place] % (Auto) Lymph # (Auto) [place] # (Auto) Baso # (Auto) Seg Neutrophils % Seg Neuts % (Manual) Lymphocytes % (Manual) 8.0 L Monocytes % (Manual) 8.0 H Nucleated RBC % 8.0 H Seg Neutrophils # Seg Neutrophils # Man Lymphocytes # (Manual) 0.9 L Monocytes # (Manual) 0.9 H PT 37.1 H INR 3.71 H APTT 135.8 H* Fibrinogen D-Dimer ABG pH 7.067 L* POC ABG pCO2 POC ABG pO2 ABG pO2 183.0 H ABG HCO3 14.1 L ABG Base Excess -15.1 L ABG Hemoglobin 7.7 L ABG Oxyhemoglobin ABG Sodium ABG Potassium ABG Chloride ABG Glucose VBG pH Oxyhemoglobin Carboxyhemoglobin Sodium Potassium Chloride Carbon Dioxide BUN Creatinine Glucose POC Glucose Random Insulin C-Peptide Lactic Acid Calcium Ionized Calcium Phosphorus Magnesium AST ALT Alkaline Phosphatase Lactate Dehydrogenase NT-Pro-B Natriuret Pep Total Protein Albumin Arterial Blood Glucose Arterial Blood Ionized Calcium Urine WBC (Auto) Vancomycin Trough Phenytoin Crossmatch 10/02/20 10/02/20 10/03/20 Unknown Unknown 00:01 WBC RBC Hgb Hct MCV MCH MCHC RDW Plt Count Lymph % (Auto) [place] % (Auto) Lymph # (Auto) [place] # (Auto) Baso # (Auto) Seg Neutrophils % Seg Neuts % (Manual) Lymphocytes % (Manual) Monocytes % (Manual) Nucleated RBC % Seg Neutrophils # Seg Neutrophils # Man Lymphocytes # (Manual) Monocytes # (Manual) PT 61.1 H INR 6.92 H* APTT 158.7 H* Fibrinogen < 60 L* D-Dimer > 39431 H ABG pH POC ABG pCO2 POC ABG pO2 ABG pO2 ABG HCO3 ABG Base Excess ABG Hemoglobin ABG Oxyhemoglobin ABG Sodium ABG Potassium ABG Chloride ABG Glucose VBG pH 6.949 L* Oxyhemoglobin Carboxyhemoglobin Sodium Potassium Chloride Carbon Dioxide BUN Creatinine Glucose POC Glucose 196 H Random Insulin C-Peptide Lactic Acid Calcium Ionized Calcium Phosphorus Magnesium AST ALT Alkaline Phosphatase Lactate Dehydrogenase NT-Pro-B Natriuret Pep Total Protein Albumin Arterial Blood Glucose Arterial Blood Ionized Calcium Urine WBC (Auto) Vancomycin Trough Phenytoin Crossmatch 10/03/20 10/03/20 10/03/20 00:40 00:40 00:40 WBC RBC Hgb Hct MCV MCH MCHC RDW Plt Count Lymph % (Auto) [place] % (Auto) Lymph # (Auto) [place] # (Auto) Baso # (Auto) Seg Neutrophils % Seg Neuts % (Manual) Lymphocytes % (Manual) Monocytes % (Manual) Nucleated RBC % Seg Neutrophils # Seg Neutrophils # Man Lymphocytes # (Manual) Monocytes # (Manual) PT 15.1 H INR 1.21 H APTT Fibrinogen D-Dimer ABG pH POC ABG pCO2 POC ABG pO2 ABG pO2 ABG HCO3 ABG Base Excess ABG Hemoglobin ABG Oxyhemoglobin ABG Sodium ABG Potassium ABG Chloride ABG Glucose VBG pH Oxyhemoglobin Carboxyhemoglobin Sodium 136 L Potassium Chloride Carbon Dioxide BUN Creatinine 1.6 H D Glucose 106 H POC Glucose Random Insulin C-Peptide Lactic Acid 5.60 H* Calcium 6.5 L Ionized Calcium Phosphorus Magnesium AST 232 H ALT 104 H Alkaline Phosphatase Lactate Dehydrogenase NT-Pro-B Natriuret Pep Total Protein 3.9 L D Albumin 2.4 L Arterial Blood Glucose Arterial Blood Ionized Calcium Urine WBC (Auto) Vancomycin Trough Phenytoin Crossmatch 10/03/20 10/03/20 10/03/20 02:08 02:08 02:08 WBC 17.6 H RBC 3.27 L Hgb 9.9 L D Hct 29.9 L D MCV MCH MCHC RDW 16.5 H Plt Count 75 L Lymph % (Auto) [place] % (Auto) Lymph # (Auto) [place] # (Auto) Baso # (Auto) Seg Neutrophils % Seg Neuts % (Manual) 76.0 H Lymphocytes % (Manual) Monocytes % (Manual) Nucleated RBC % 8.0 H Seg Neutrophils # Seg Neutrophils # Man 13.4 H Lymphocytes # (Manual) Monocytes # (Manual) PT INR APTT Fibrinogen D-Dimer ABG pH POC ABG pCO2 POC ABG pO2 ABG pO2 ABG HCO3 ABG Base Excess ABG Hemoglobin ABG Oxyhemoglobin ABG Sodium ABG Potassium ABG Chloride ABG Glucose VBG pH Oxyhemoglobin Carboxyhemoglobin Sodium Potassium Chloride Carbon Dioxide 19 L BUN Creatinine 1.4 H Glucose 306 H POC Glucose Random Insulin C-Peptide Lactic Acid 10.50 H* Calcium 6.4 L Ionized Calcium Phosphorus Magnesium AST ALT Alkaline Phosphatase Lactate Dehydrogenase NT-Pro-B Natriuret Pep Total Protein Albumin Arterial Blood Glucose Arterial Blood Ionized Calcium Urine WBC (Auto) Vancomycin Trough Phenytoin Crossmatch 10/03/20 10/03/20 10/03/20 02:42 03:59 05:31 WBC RBC Hgb Hct MCV MCH MCHC RDW Plt Count Lymph % (Auto) [place] % (Auto) Lymph # (Auto) [place] # (Auto) Baso # (Auto) Seg Neutrophils % Seg Neuts % (Manual) Lymphocytes % (Manual) Monocytes % (Manual) Nucleated RBC % Seg Neutrophils # Seg Neutrophils # Man Lymphocytes # (Manual) Monocytes # (Manual) PT INR APTT Fibrinogen D-Dimer ABG pH 7.144 L POC ABG pCO2 54.4 H POC ABG pO2 ABG pO2 ABG HCO3 ABG Base Excess ABG Hemoglobin 10.0 L ABG Oxyhemoglobin ABG Sodium ABG Potassium ABG Chloride 108.0 H ABG Glucose 306 H VBG pH Oxyhemoglobin Carboxyhemoglobin Sodium Potassium Chloride Carbon Dioxide BUN Creatinine Glucose POC Glucose 209 H Random Insulin C-Peptide Lactic Acid 9.20 H* Calcium Ionized Calcium Phosphorus Magnesium AST ALT Alkaline Phosphatase Lactate Dehydrogenase NT-Pro-B Natriuret Pep Total Protein Albumin Arterial Blood Glucose 306 H Arterial Blood Ionized Calcium 3.7 L Urine WBC (Auto) Vancomycin Trough Phenytoin Crossmatch 10/03/20 10/03/20 10/03/20 09:00 09:00 09:00 WBC 27.4 H RBC 2.84 L Hgb 8.5 L Hct 25.1 L MCV MCH MCHC RDW 16.1 H Plt Count 72 L Lymph % (Auto) [place] % (Auto) Lymph # (Auto) [place] # (Auto) Baso # (Auto) Seg Neutrophils % Seg Neuts % (Manual) Lymphocytes % (Manual) 11.0 L Monocytes % (Manual) Nucleated RBC % 3.0 H Seg Neutrophils # Seg Neutrophils # Man 18.4 H Lymphocytes # (Manual) Monocytes # (Manual) 1.9 H PT INR APTT Fibrinogen D-Dimer ABG pH POC ABG pCO2 POC ABG pO2 ABG pO2 ABG HCO3 ABG Base Excess ABG Hemoglobin ABG Oxyhemoglobin ABG Sodium ABG Potassium ABG Chloride ABG Glucose VBG pH Oxyhemoglobin Carboxyhemoglobin Sodium Potassium Chloride Carbon Dioxide BUN Creatinine 1.7 H Glucose 216 H POC Glucose Random Insulin C-Peptide Lactic Acid 9.20 H* Calcium 6.3 L Ionized Calcium Phosphorus Magnesium AST 331 H ALT 171 H Alkaline Phosphatase Lactate Dehydrogenase NT-Pro-B Natriuret Pep Total Protein 3.7 L Albumin 1.9 L Arterial Blood Glucose Arterial Blood Ionized Calcium Urine WBC (Auto) Vancomycin Trough Phenytoin Crossmatch 10/03/20 10/03/20 10/03/20 11:20 11:46 11:50 WBC 28.7 H RBC 2.67 L Hgb 8.0 L Hct 23.7 L MCV MCH MCHC RDW 16.6 H Plt Count 76 L Lymph % (Auto) [place] % (Auto) Lymph # (Auto) [place] # (Auto) Baso # (Auto) Seg Neutrophils % Seg Neuts % (Manual) Lymphocytes % (Manual) Monocytes % (Manual) Nucleated RBC % Seg Neutrophils # Seg Neutrophils # Man Lymphocytes # (Manual) Monocytes # (Manual) PT INR APTT Fibrinogen D-Dimer ABG pH POC ABG pCO2 POC ABG pO2 ABG pO2 ABG HCO3 ABG Base Excess ABG Hemoglobin ABG Oxyhemoglobin ABG Sodium ABG Potassium ABG Chloride ABG Glucose VBG pH Oxyhemoglobin Carboxyhemoglobin Sodium Potassium Chloride Carbon Dioxide BUN Creatinine Glucose POC Glucose 125 H Random Insulin C-Peptide Lactic Acid 8.00 H* Calcium Ionized Calcium Phosphorus Magnesium AST ALT Alkaline Phosphatase Lactate Dehydrogenase NT-Pro-B Natriuret Pep Total Protein Albumin Arterial Blood Glucose Arterial Blood Ionized Calcium Urine WBC (Auto) Vancomycin Trough Phenytoin Crossmatch 10/03/20 10/04/20 10/04/20 11:50 00:40 00:40 WBC RBC Hgb 6.8 L Hct 19.4 L* MCV MCH MCHC RDW Plt Count 49 L Lymph % (Auto) [place] % (Auto) Lymph # (Auto) [place] # (Auto) Baso # (Auto) Seg Neutrophils % Seg Neuts % (Manual) Lymphocytes % (Manual) Monocytes % (Manual) Nucleated RBC % Seg Neutrophils # Seg Neutrophils # Man Lymphocytes # (Manual) Monocytes # (Manual) PT INR APTT Fibrinogen D-Dimer ABG pH 7.244 L POC ABG pCO2 POC ABG pO2 ABG pO2 ABG HCO3 ABG Base Excess -4.5 L ABG Hemoglobin 7.3 L ABG Oxyhemoglobin ABG Sodium ABG Potassium ABG Chloride ABG Glucose VBG pH Oxyhemoglobin Carboxyhemoglobin Sodium Potassium Chloride Carbon Dioxide BUN Creatinine Glucose POC Glucose Random Insulin C-Peptide Lactic Acid Calcium Ionized Calcium Phosphorus Magnesium AST ALT Alkaline Phosphatase Lactate Dehydrogenase NT-Pro-B Natriuret Pep Total Protein Albumin Arterial Blood Glucose Arterial Blood Ionized Calcium Urine WBC (Auto) Vancomycin Trough Phenytoin Crossmatch 10/04/20 10/04/20 10/04/20 03:53 10:00 10:00 WBC 14.6 H RBC 2.57 L Hgb 7.6 L Hct 22.5 L MCV MCH MCHC RDW 15.8 H Plt Count 38 L Lymph % (Auto) 7.7 L [place] % (Auto) Lymph # (Auto) 1.1 L [place] # (Auto) 0.9 H Baso # (Auto) Seg Neutrophils % 85.6 H Seg Neuts % (Manual) Lymphocytes % (Manual) Monocytes % (Manual) Nucleated RBC % Seg Neutrophils # 12.5 H Seg Neutrophils # Man Lymphocytes # (Manual) Monocytes # (Manual) PT INR APTT Fibrinogen D-Dimer ABG pH POC ABG pCO2 POC ABG pO2 110.6 H ABG pO2 ABG HCO3 ABG Base Excess ABG Hemoglobin 6.7 L ABG Oxyhemoglobin ABG Sodium 132.0 L ABG Potassium ABG Chloride ABG Glucose 111 H VBG pH Oxyhemoglobin Carboxyhemoglobin Sodium 134 L D Potassium Chloride 97.6 L Carbon Dioxide BUN Creatinine 1.7 H Glucose POC Glucose Random Insulin C-Peptide Lactic Acid Calcium 6.3 L Ionized Calcium Phosphorus Magnesium AST 203 H ALT 81 H Alkaline Phosphatase Lactate Dehydrogenase NT-Pro-B Natriuret Pep Total Protein 3.9 L Albumin 2.3 L Arterial Blood Glucose 111 H Arterial Blood Ionized Calcium 3.5 L Urine WBC (Auto) Vancomycin Trough Phenytoin Crossmatch 10/04/20 10/04/20 10/04/20 10:00 10:00 10:14 WBC RBC Hgb Hct MCV MCH MCHC RDW Plt Count Lymph % (Auto) [place] % (Auto) Lymph # (Auto) [place] # (Auto) Baso # (Auto) Seg Neutrophils % Seg Neuts % (Manual) Lymphocytes % (Manual) Monocytes % (Manual) Nucleated RBC % Seg Neutrophils # Seg Neutrophils # Man Lymphocytes # (Manual) Monocytes # (Manual) PT INR APTT Fibrinogen D-Dimer > 07360 H ABG pH POC ABG pCO2 POC ABG pO2 ABG pO2 ABG HCO3 ABG Base Excess ABG Hemoglobin ABG Oxyhemoglobin ABG Sodium ABG Potassium ABG Chloride ABG Glucose VBG pH Oxyhemoglobin Carboxyhemoglobin Sodium Potassium Chloride Carbon Dioxide BUN Creatinine Glucose POC Glucose Random Insulin C-Peptide Lactic Acid 3.90 H* Calcium Ionized Calcium Phosphorus Magnesium AST ALT Alkaline Phosphatase Lactate Dehydrogenase NT-Pro-B Natriuret Pep 2788 H Total Protein Albumin Arterial Blood Glucose Arterial Blood Ionized Calcium Urine WBC (Auto) Vancomycin Trough Phenytoin Crossmatch 10/04/20 10/04/20 10/04/20 14:00 14:00 18:00 WBC 15.7 H RBC 3.17 L Hgb 9.3 L 9.6 L Hct 27.2 L 28.0 L MCV MCH MCHC RDW 16.9 H Plt Count 41 L Lymph % (Auto) 8.6 L [place] % (Auto) Lymph # (Auto) [place] # (Auto) 0.9 H Baso # (Auto) Seg Neutrophils % 85.4 H Seg Neuts % (Manual) Lymphocytes % (Manual) Monocytes % (Manual) Nucleated RBC % Seg Neutrophils # 13.4 H Seg Neutrophils # Man Lymphocytes # (Manual) Monocytes # (Manual) PT INR APTT Fibrinogen D-Dimer ABG pH POC ABG pCO2 POC ABG pO2 ABG pO2 ABG HCO3 ABG Base Excess ABG Hemoglobin ABG Oxyhemoglobin ABG Sodium ABG Potassium ABG Chloride ABG Glucose VBG pH Oxyhemoglobin Carboxyhemoglobin Sodium 133 L Potassium Chloride 96.4 L Carbon Dioxide BUN 18 H Creatinine 1.7 H Glucose POC Glucose Random Insulin C-Peptide Lactic Acid Calcium 6.3 L Ionized Calcium Phosphorus Magnesium AST ALT Alkaline Phosphatase Lactate Dehydrogenase NT-Pro-B Natriuret Pep Total Protein Albumin Arterial Blood Glucose Arterial Blood Ionized Calcium Urine WBC (Auto) Vancomycin Trough Phenytoin Crossmatch 10/04/20 10/04/20 10/05/20 18:00 22:00 05:00 WBC 17.6 H RBC 3.34 L Hgb 9.9 L Hct 29.4 L MCV MCH MCHC RDW 17.1 H Plt Count 56 L Lymph % (Auto) 8.5 L [place] % (Auto) Lymph # (Auto) [place] # (Auto) 1.0 H Baso # (Auto) Seg Neutrophils % 85.1 H Seg Neuts % (Manual) Lymphocytes % (Manual) Monocytes % (Manual) Nucleated RBC % Seg Neutrophils # 15.0 H Seg Neutrophils # Man Lymphocytes # (Manual) Monocytes # (Manual) PT INR APTT Fibrinogen D-Dimer ABG pH POC ABG pCO2 POC ABG pO2 ABG pO2 ABG HCO3 ABG Base Excess ABG Hemoglobin ABG Oxyhemoglobin ABG Sodium ABG Potassium ABG Chloride ABG Glucose VBG pH Oxyhemoglobin Carboxyhemoglobin Sodium 136 L Potassium Chloride Carbon Dioxide BUN 18 H Creatinine 1.7 H Glucose POC Glucose Random Insulin C-Peptide Lactic Acid 2.30 H* Calcium 6.6 L Ionized Calcium Phosphorus Magnesium AST ALT Alkaline Phosphatase Lactate Dehydrogenase NT-Pro-B Natriuret Pep Total Protein Albumin Arterial Blood Glucose Arterial Blood Ionized Calcium Urine WBC (Auto) Vancomycin Trough Phenytoin Crossmatch 10/05/20 10/05/20 10/05/20 05:00 05:00 05:03 WBC RBC Hgb Hct MCV MCH MCHC RDW Plt Count Lymph % (Auto) [place] % (Auto) Lymph # (Auto) [place] # (Auto) Baso # (Auto) Seg Neutrophils % Seg Neuts % (Manual) Lymphocytes % (Manual) Monocytes % (Manual) Nucleated RBC % Seg Neutrophils # Seg Neutrophils # Man Lymphocytes # (Manual) Monocytes # (Manual) PT INR APTT Fibrinogen D-Dimer ABG pH 7.458 H POC ABG pCO2 POC ABG pO2 ABG pO2 74.3 L ABG HCO3 27.5 H ABG Base Excess 3.4 H ABG Hemoglobin 10.0 L ABG Oxyhemoglobin ABG Sodium ABG Potassium ABG Chloride ABG Glucose VBG pH Oxyhemoglobin 94.9 L Carboxyhemoglobin Sodium Potassium Chloride Carbon Dioxide BUN 19 H Creatinine 1.8 H Glucose POC Glucose Random Insulin C-Peptide Lactic Acid Calcium 6.8 L Ionized Calcium 3.9 L Phosphorus Magnesium AST 225 H ALT 85 H Alkaline Phosphatase Lactate Dehydrogenase NT-Pro-B Natriuret Pep Total Protein 4.5 L Albumin 2.7 L Arterial Blood Glucose Arterial Blood Ionized Calcium Urine WBC (Auto) Vancomycin Trough Phenytoin Crossmatch 10/05/20 10/05/20 10/05/20 10:10 15:00 19:40 WBC RBC Hgb Hct MCV MCH MCHC RDW Plt Count Lymph % (Auto) [place] % (Auto) Lymph # (Auto) [place] # (Auto) Baso # (Auto) Seg Neutrophils % Seg Neuts % (Manual) Lymphocytes % (Manual) Monocytes % (Manual) Nucleated RBC % Seg Neutrophils # Seg Neutrophils # Man Lymphocytes # (Manual) Monocytes # (Manual) PT INR APTT Fibrinogen D-Dimer ABG pH POC ABG pCO2 POC ABG pO2 ABG pO2 ABG HCO3 ABG Base Excess ABG Hemoglobin ABG Oxyhemoglobin ABG Sodium ABG Potassium ABG Chloride ABG Glucose VBG pH Oxyhemoglobin Carboxyhemoglobin Sodium Potassium 3.5 L Chloride Carbon Dioxide 31 H 32 H BUN 19 H 19 H Creatinine 1.8 H 1.8 H Glucose POC Glucose Random Insulin C-Peptide Lactic Acid Calcium 7.0 L 7.2 L Ionized Calcium Phosphorus Magnesium 2.90 H AST ALT Alkaline Phosphatase Lactate Dehydrogenase NT-Pro-B Natriuret Pep Total Protein Albumin Arterial Blood Glucose Arterial Blood Ionized Calcium Urine WBC (Auto) Vancomycin Trough Phenytoin Crossmatch 10/06/20 10/06/20 10/06/20 01:05 03:12 04:00 WBC 17.1 H RBC 3.47 L Hgb Hct MCV MCH MCHC RDW 17.4 H Plt Count 82 L Lymph % (Auto) 8.3 L [place] % (Auto) Lymph # (Auto) [place] # (Auto) 1.1 H Baso # (Auto) Seg Neutrophils % 83.8 H Seg Neuts % (Manual) Lymphocytes % (Manual) Monocytes % (Manual) Nucleated RBC % Seg Neutrophils # 14.3 H Seg Neutrophils # Man Lymphocytes # (Manual) Monocytes # (Manual) PT INR APTT Fibrinogen D-Dimer ABG pH 7.474 H POC ABG pCO2 POC ABG pO2 129.5 H ABG pO2 ABG HCO3 ABG Base Excess ABG Hemoglobin 11.4 L ABG Oxyhemoglobin ABG Sodium 131.8 L ABG Potassium ABG Chloride ABG Glucose 103 H VBG pH Oxyhemoglobin Carboxyhemoglobin 0.3 L Sodium Potassium Chloride Carbon Dioxide BUN Creatinine Glucose POC Glucose Random Insulin C-Peptide Lactic Acid Calcium Ionized Calcium Phosphorus Magnesium 3.70 H AST ALT Alkaline Phosphatase Lactate Dehydrogenase NT-Pro-B Natriuret Pep Total Protein Albumin Arterial Blood Glucose 103 H Arterial Blood Ionized Calcium 4.2 L Urine WBC (Auto) Vancomycin Trough Phenytoin Crossmatch 10/06/20 10/06/20 10/06/20 04:00 05:31 08:12 WBC RBC Hgb Hct MCV MCH MCHC RDW Plt Count Lymph % (Auto) [place] % (Auto) Lymph # (Auto) [place] # (Auto) Baso # (Auto) Seg Neutrophils % Seg Neuts % (Manual) Lymphocytes % (Manual) Monocytes % (Manual) Nucleated RBC % Seg Neutrophils # Seg Neutrophils # Man Lymphocytes # (Manual) Monocytes # (Manual) PT INR APTT Fibrinogen D-Dimer ABG pH POC ABG pCO2 POC ABG pO2 ABG pO2 ABG HCO3 ABG Base Excess ABG Hemoglobin ABG Oxyhemoglobin ABG Sodium ABG Potassium ABG Chloride ABG Glucose VBG pH Oxyhemoglobin Carboxyhemoglobin Sodium Potassium 3.5 L Chloride Carbon Dioxide BUN 19 H Creatinine 1.8 H Glucose 102 H POC Glucose 116 H Random Insulin C-Peptide Lactic Acid Calcium 7.2 L Ionized Calcium Phosphorus Magnesium 5.40 H AST 307 H ALT 137 H Alkaline Phosphatase Lactate Dehydrogenase NT-Pro-B Natriuret Pep Total Protein 4.5 L Albumin 2.6 L Arterial Blood Glucose Arterial Blood Ionized Calcium Urine WBC (Auto) Vancomycin Trough Phenytoin Crossmatch 10/06/20 10/06/20 10/06/20 11:00 11:50 20:13 WBC RBC Hgb Hct MCV MCH MCHC RDW Plt Count Lymph % (Auto) [place] % (Auto) Lymph # (Auto) [place] # (Auto) Baso # (Auto) Seg Neutrophils % Seg Neuts % (Manual) Lymphocytes % (Manual) Monocytes % (Manual) Nucleated RBC % Seg Neutrophils # Seg Neutrophils # Man Lymphocytes # (Manual) Monocytes # (Manual) PT INR APTT Fibrinogen D-Dimer ABG pH POC ABG pCO2 POC ABG pO2 ABG pO2 ABG HCO3 ABG Base Excess ABG Hemoglobin ABG Oxyhemoglobin ABG Sodium ABG Potassium ABG Chloride ABG Glucose VBG pH Oxyhemoglobin Carboxyhemoglobin Sodium Potassium Chloride Carbon Dioxide BUN Creatinine Glucose POC Glucose 106 H Random Insulin C-Peptide Lactic Acid Calcium Ionized Calcium Phosphorus Magnesium 6.50 H 6.20 H AST ALT Alkaline Phosphatase Lactate Dehydrogenase NT-Pro-B Natriuret Pep Total Protein Albumin Arterial Blood Glucose Arterial Blood Ionized Calcium Urine WBC (Auto) Vancomycin Trough Phenytoin Crossmatch 10/06/20 10/06/20 10/06/20 20:17 22:29 23:57 WBC RBC Hgb Hct MCV MCH MCHC RDW Plt Count Lymph % (Auto) [place] % (Auto) Lymph # (Auto) [place] # (Auto) Baso # (Auto) Seg Neutrophils % Seg Neuts % (Manual) Lymphocytes % (Manual) Monocytes % (Manual) Nucleated RBC % Seg Neutrophils # Seg Neutrophils # Man Lymphocytes # (Manual) Monocytes # (Manual) PT INR APTT Fibrinogen D-Dimer ABG pH POC ABG pCO2 POC ABG pO2 ABG pO2 ABG HCO3 ABG Base Excess ABG Hemoglobin ABG Oxyhemoglobin ABG Sodium ABG Potassium ABG Chloride ABG Glucose VBG pH Oxyhemoglobin Carboxyhemoglobin Sodium Potassium Chloride Carbon Dioxide BUN Creatinine Glucose POC Glucose 112 H 126 H 133 H Random Insulin C-Peptide Lactic Acid Calcium Ionized Calcium Phosphorus Magnesium AST ALT Alkaline Phosphatase Lactate Dehydrogenase NT-Pro-B Natriuret Pep Total Protein Albumin Arterial Blood Glucose Arterial Blood Ionized Calcium Urine WBC (Auto) Vancomycin Trough Phenytoin Crossmatch 10/07/20 10/07/20 10/07/20 00:35 02:22 03:16 WBC RBC Hgb Hct MCV MCH MCHC RDW Plt Count Lymph % (Auto) [place] % (Auto) Lymph # (Auto) [place] # (Auto) Baso # (Auto) Seg Neutrophils % Seg Neuts % (Manual) Lymphocytes % (Manual) Monocytes % (Manual) Nucleated RBC % Seg Neutrophils # Seg Neutrophils # Man Lymphocytes # (Manual) Monocytes # (Manual) PT INR APTT Fibrinogen D-Dimer ABG pH POC ABG pCO2 POC ABG pO2 ABG pO2 ABG HCO3 ABG Base Excess ABG Hemoglobin 11.6 L ABG Oxyhemoglobin ABG Sodium ABG Potassium ABG Chloride ABG Glucose 156 H VBG pH Oxyhemoglobin Carboxyhemoglobin 0.3 L Sodium Potassium Chloride Carbon Dioxide BUN Creatinine Glucose POC Glucose 124 H Random Insulin C-Peptide Lactic Acid Calcium Ionized Calcium Phosphorus Magnesium 5.90 H AST ALT Alkaline Phosphatase Lactate Dehydrogenase NT-Pro-B Natriuret Pep Total Protein Albumin Arterial Blood Glucose 156 H Arterial Blood Ionized Calcium 4.2 L Urine WBC (Auto) Vancomycin Trough Phenytoin Crossmatch 10/07/20 10/07/20 10/07/20 04:06 05:45 07:05 WBC 19.2 H RBC 3.57 L Hgb Hct MCV MCH MCHC 35 H RDW 17.1 H Plt Count 129 L Lymph % (Auto) [place] % (Auto) Lymph # (Auto) [place] # (Auto) Baso # (Auto) Seg Neutrophils % Seg Neuts % (Manual) 94.0 H Lymphocytes % (Manual) 6.0 L Monocytes % (Manual) Nucleated RBC % Seg Neutrophils # Seg Neutrophils # Man 18.0 H Lymphocytes # (Manual) Monocytes # (Manual) PT INR APTT Fibrinogen D-Dimer ABG pH POC ABG pCO2 POC ABG pO2 ABG pO2 ABG HCO3 ABG Base Excess ABG Hemoglobin ABG Oxyhemoglobin ABG Sodium ABG Potassium ABG Chloride ABG Glucose VBG pH Oxyhemoglobin Carboxyhemoglobin Sodium Potassium Chloride Carbon Dioxide BUN Creatinine Glucose POC Glucose 135 H 149 H Random Insulin C-Peptide Lactic Acid Calcium Ionized Calcium Phosphorus Magnesium AST ALT Alkaline Phosphatase Lactate Dehydrogenase NT-Pro-B Natriuret Pep Total Protein Albumin Arterial Blood Glucose Arterial Blood Ionized Calcium Urine WBC (Auto) Vancomycin Trough Phenytoin Crossmatch 10/07/20 10/07/20 10/07/20 07:05 07:05 12:21 WBC RBC Hgb Hct MCV MCH MCHC RDW Plt Count Lymph % (Auto) [place] % (Auto) Lymph # (Auto) [place] # (Auto) Baso # (Auto) Seg Neutrophils % Seg Neuts % (Manual) Lymphocytes % (Manual) Monocytes % (Manual) Nucleated RBC % Seg Neutrophils # Seg Neutrophils # Man Lymphocytes # (Manual) Monocytes # (Manual) PT INR APTT Fibrinogen D-Dimer ABG pH POC ABG pCO2 POC ABG pO2 ABG pO2 ABG HCO3 ABG Base Excess ABG Hemoglobin ABG Oxyhemoglobin ABG Sodium ABG Potassium ABG Chloride ABG Glucose VBG pH Oxyhemoglobin Carboxyhemoglobin Sodium Potassium Chloride Carbon Dioxide BUN 21 H Creatinine 1.7 H Glucose 171 H POC Glucose 124 H Random Insulin C-Peptide Lactic Acid Calcium 7.4 L Ionized Calcium Phosphorus Magnesium 6.10 H AST 245 H ALT 147 H Alkaline Phosphatase Lactate Dehydrogenase NT-Pro-B Natriuret Pep Total Protein 5.3 L Albumin 2.8 L Arterial Blood Glucose Arterial Blood Ionized Calcium Urine WBC (Auto) Vancomycin Trough Phenytoin Crossmatch 10/07/20 10/07/20 10/07/20 19:52 21:00 21:50 WBC RBC Hgb Hct MCV MCH MCHC RDW Plt Count Lymph % (Auto) [place] % (Auto) Lymph # (Auto) [place] # (Auto) Baso # (Auto) Seg Neutrophils % Seg Neuts % (Manual) Lymphocytes % (Manual) Monocytes % (Manual) Nucleated RBC % Seg Neutrophils # Seg Neutrophils # Man Lymphocytes # (Manual) Monocytes # (Manual) PT INR APTT Fibrinogen D-Dimer ABG pH POC ABG pCO2 POC ABG pO2 ABG pO2 ABG HCO3 ABG Base Excess ABG Hemoglobin ABG Oxyhemoglobin ABG Sodium ABG Potassium ABG Chloride ABG Glucose VBG pH Oxyhemoglobin Carboxyhemoglobin Sodium Potassium Chloride Carbon Dioxide BUN Creatinine Glucose POC Glucose 193 H 138 H Random Insulin C-Peptide Lactic Acid Calcium Ionized Calcium 4.4 L Phosphorus Magnesium AST ALT Alkaline Phosphatase Lactate Dehydrogenase NT-Pro-B Natriuret Pep Total Protein Albumin Arterial Blood Glucose Arterial Blood Ionized Calcium Urine WBC (Auto) Vancomycin Trough Phenytoin Crossmatch 10/07/20 10/08/20 10/08/20 23:41 04:20 05:30 WBC RBC Hgb Hct MCV MCH MCHC RDW Plt Count Lymph % (Auto) [place] % (Auto) Lymph # (Auto) [place] # (Auto) Baso # (Auto) Seg Neutrophils % Seg Neuts % (Manual) Lymphocytes % (Manual) Monocytes % (Manual) Nucleated RBC % Seg Neutrophils # Seg Neutrophils # Man Lymphocytes # (Manual) Monocytes # (Manual) PT INR APTT Fibrinogen D-Dimer ABG pH 7.467 H POC ABG pCO2 POC ABG pO2 189.8 H ABG pO2 ABG HCO3 ABG Base Excess ABG Hemoglobin 10.8 L ABG Oxyhemoglobin ABG Sodium ABG Potassium ABG Chloride ABG Glucose 133 H VBG pH Oxyhemoglobin Carboxyhemoglobin Sodium Potassium Chloride Carbon Dioxide BUN Creatinine Glucose POC Glucose 118 H 114 H Random Insulin C-Peptide Lactic Acid Calcium Ionized Calcium Phosphorus Magnesium AST ALT Alkaline Phosphatase Lactate Dehydrogenase NT-Pro-B Natriuret Pep Total Protein Albumin Arterial Blood Glucose 133 H Arterial Blood Ionized Calcium 4.2 L Urine WBC (Auto) Vancomycin Trough Phenytoin Crossmatch 10/08/20 10/08/20 10/08/20 05:43 06:42 06:42 WBC 23.6 H RBC 3.54 L Hgb Hct MCV MCH MCHC RDW 17.8 H Plt Count Lymph % (Auto) [place] % (Auto) Lymph # (Auto) [place] # (Auto) Baso # (Auto) Seg Neutrophils % Seg Neuts % (Manual) 93.0 H Lymphocytes % (Manual) 3.0 L Monocytes % (Manual) Nucleated RBC % 1.0 H Seg Neutrophils # Seg Neutrophils # Man 21.9 H Lymphocytes # (Manual) 0.7 L Monocytes # (Manual) 0.9 H PT INR APTT Fibrinogen D-Dimer ABG pH POC ABG pCO2 POC ABG pO2 ABG pO2 ABG HCO3 ABG Base Excess ABG Hemoglobin ABG Oxyhemoglobin ABG Sodium ABG Potassium ABG Chloride ABG Glucose VBG pH Oxyhemoglobin Carboxyhemoglobin Sodium Potassium Chloride Carbon Dioxide BUN 28 H Creatinine 1.6 H Glucose 141 H POC Glucose 126 H Random Insulin C-Peptide Lactic Acid Calcium 7.6 L Ionized Calcium Phosphorus Magnesium AST 162 H ALT 103 H Alkaline Phosphatase Lactate Dehydrogenase NT-Pro-B Natriuret Pep Total Protein 5.4 L Albumin 2.7 L Arterial Blood Glucose Arterial Blood Ionized Calcium Urine WBC (Auto) Vancomycin Trough Phenytoin Crossmatch 10/08/20 10/08/20 10/08/20 11:20 16:05 20:14 WBC RBC Hgb Hct MCV MCH MCHC RDW Plt Count Lymph % (Auto) [place] % (Auto) Lymph # (Auto) [place] # (Auto) Baso # (Auto) Seg Neutrophils % Seg Neuts % (Manual) Lymphocytes % (Manual) Monocytes % (Manual) Nucleated RBC % Seg Neutrophils # Seg Neutrophils # Man Lymphocytes # (Manual) Monocytes # (Manual) PT INR APTT Fibrinogen D-Dimer ABG pH POC ABG pCO2 POC ABG pO2 ABG pO2 ABG HCO3 ABG Base Excess ABG Hemoglobin ABG Oxyhemoglobin ABG Sodium ABG Potassium ABG Chloride ABG Glucose VBG pH Oxyhemoglobin Carboxyhemoglobin Sodium Potassium Chloride Carbon Dioxide BUN Creatinine Glucose POC Glucose 127 H 172 H 147 H Random Insulin C-Peptide Lactic Acid Calcium Ionized Calcium Phosphorus Magnesium AST ALT Alkaline Phosphatase Lactate Dehydrogenase NT-Pro-B Natriuret Pep Total Protein Albumin Arterial Blood Glucose Arterial Blood Ionized Calcium Urine WBC (Auto) Vancomycin Trough Phenytoin Crossmatch 10/08/20 10/08/20 10/09/20 21:27 23:24 02:10 WBC RBC Hgb Hct MCV MCH MCHC RDW Plt Count Lymph % (Auto) [place] % (Auto) Lymph # (Auto) [place] # (Auto) Baso # (Auto) Seg Neutrophils % Seg Neuts % (Manual) Lymphocytes % (Manual) Monocytes % (Manual) Nucleated RBC % Seg Neutrophils # Seg Neutrophils # Man Lymphocytes # (Manual) Monocytes # (Manual) PT INR APTT Fibrinogen D-Dimer ABG pH POC ABG pCO2 POC ABG pO2 ABG pO2 ABG HCO3 ABG Base Excess ABG Hemoglobin ABG Oxyhemoglobin ABG Sodium ABG Potassium ABG Chloride ABG Glucose VBG pH Oxyhemoglobin Carboxyhemoglobin Sodium Potassium Chloride Carbon Dioxide BUN Creatinine Glucose POC Glucose 140 H 135 H 111 H Random Insulin C-Peptide Lactic Acid Calcium Ionized Calcium Phosphorus Magnesium AST ALT Alkaline Phosphatase Lactate Dehydrogenase NT-Pro-B Natriuret Pep Total Protein Albumin Arterial Blood Glucose Arterial Blood Ionized Calcium Urine WBC (Auto) Vancomycin Trough Phenytoin Crossmatch 10/09/20 10/09/20 10/09/20 03:44 04:39 05:46 WBC 19.7 H RBC 3.51 L Hgb Hct MCV MCH MCHC RDW 17.7 H Plt Count Lymph % (Auto) [place] % (Auto) Lymph # (Auto) [place] # (Auto) Baso # (Auto) Seg Neutrophils % Seg Neuts % (Manual) 86.0 H Lymphocytes % (Manual) 4.0 L Monocytes % (Manual) 9.0 H Nucleated RBC % Seg Neutrophils # Seg Neutrophils # Man 16.9 H Lymphocytes # (Manual) 0.8 L Monocytes # (Manual) 1.8 H PT INR APTT Fibrinogen D-Dimer ABG pH 7.513 H POC ABG pCO2 POC ABG pO2 33.6 L ABG pO2 ABG HCO3 ABG Base Excess ABG Hemoglobin 11.1 L ABG Oxyhemoglobin 70.2 L ABG Sodium ABG Potassium 3.2 L ABG Chloride 108.0 H ABG Glucose 108 H VBG pH Oxyhemoglobin Carboxyhemoglobin Sodium Potassium Chloride Carbon Dioxide BUN Creatinine Glucose POC Glucose 109 H Random Insulin C-Peptide Lactic Acid Calcium Ionized Calcium Phosphorus Magnesium AST ALT Alkaline Phosphatase Lactate Dehydrogenase NT-Pro-B Natriuret Pep Total Protein Albumin Arterial Blood Glucose 108 H Arterial Blood Ionized Calcium 4.3 L Urine WBC (Auto) Vancomycin Trough Phenytoin Crossmatch 10/09/20 10/10/20 10/10/20 05:46 04:00 04:00 WBC 18.4 H RBC Hgb Hct MCV MCH MCHC RDW 17.5 H Plt Count Lymph % (Auto) 9.8 L [place] % (Auto) 8.8 H Lymph # (Auto) [place] # (Auto) 1.6 H Baso # (Auto) Seg Neutrophils % 80.0 H Seg Neuts % (Manual) Lymphocytes % (Manual) Monocytes % (Manual) Nucleated RBC % Seg Neutrophils # 14.7 H Seg Neutrophils # Man Lymphocytes # (Manual) Monocytes # (Manual) PT INR APTT Fibrinogen D-Dimer ABG pH POC ABG pCO2 POC ABG pO2 ABG pO2 ABG HCO3 ABG Base Excess ABG Hemoglobin ABG Oxyhemoglobin ABG Sodium ABG Potassium ABG Chloride ABG Glucose VBG pH Oxyhemoglobin Carboxyhemoglobin Sodium 146 H Potassium 3.2 L 2.9 L* Chloride 108.9 H 112.6 H Carbon Dioxide BUN 34 H 28 H Creatinine 1.4 H 1.3 H Glucose 109 H 101 H POC Glucose Random Insulin C-Peptide Lactic Acid Calcium 7.6 L 7.8 L Ionized Calcium Phosphorus Magnesium AST 137 H 122 H ALT 99 H 81 H Alkaline Phosphatase Lactate Dehydrogenase NT-Pro-B Natriuret Pep Total Protein 5.1 L 5.2 L Albumin 2.6 L 2.7 L Arterial Blood Glucose Arterial Blood Ionized Calcium Urine WBC (Auto) Vancomycin Trough Phenytoin Crossmatch 10/10/20 10/10/20 10/11/20 04:42 09:50 00:44 WBC RBC Hgb Hct MCV MCH MCHC RDW Plt Count Lymph % (Auto) [place] % (Auto) Lymph # (Auto) [place] # (Auto) Baso # (Auto) Seg Neutrophils % Seg Neuts % (Manual) Lymphocytes % (Manual) Monocytes % (Manual) Nucleated RBC % Seg Neutrophils # Seg Neutrophils # Man Lymphocytes # (Manual) Monocytes # (Manual) PT INR APTT Fibrinogen D-Dimer ABG pH 7.534 H POC ABG pCO2 POC ABG pO2 ABG pO2 95.2 H ABG HCO3 ABG Base Excess ABG Hemoglobin 11.3 L ABG Oxyhemoglobin ABG Sodium ABG Potassium ABG Chloride ABG Glucose VBG pH Oxyhemoglobin Carboxyhemoglobin Sodium Potassium Chloride Carbon Dioxide BUN Creatinine Glucose POC Glucose 109 H 106 H Random Insulin C-Peptide Lactic Acid Calcium Ionized Calcium Phosphorus Magnesium AST ALT Alkaline Phosphatase Lactate Dehydrogenase NT-Pro-B Natriuret Pep Total Protein Albumin Arterial Blood Glucose Arterial Blood Ionized Calcium Urine WBC (Auto) Vancomycin Trough Phenytoin Crossmatch 10/11/20 10/11/20 10/11/20 04:00 04:00 06:08 WBC 27.0 H RBC Hgb Hct MCV MCH MCHC RDW 17.7 H Plt Count Lymph % (Auto) 6.3 L [place] % (Auto) Lymph # (Auto) [place] # (Auto) 1.5 H Baso # (Auto) Seg Neutrophils % 87.1 H Seg Neuts % (Manual) Lymphocytes % (Manual) Monocytes % (Manual) Nucleated RBC % Seg Neutrophils # 23.5 H Seg Neutrophils # Man Lymphocytes # (Manual) Monocytes # (Manual) PT INR APTT Fibrinogen D-Dimer ABG pH POC ABG pCO2 POC ABG pO2 ABG pO2 ABG HCO3 ABG Base Excess ABG Hemoglobin ABG Oxyhemoglobin ABG Sodium ABG Potassium ABG Chloride ABG Glucose VBG pH Oxyhemoglobin Carboxyhemoglobin Sodium Potassium 3.2 L Chloride 110.4 H Carbon Dioxide 19 L BUN 22 H Creatinine Glucose 116 H POC Glucose 107 H Random Insulin C-Peptide Lactic Acid Calcium 7.7 L Ionized Calcium Phosphorus Magnesium 1.60 L AST ALT Alkaline Phosphatase Lactate Dehydrogenase NT-Pro-B Natriuret Pep Total Protein Albumin Arterial Blood Glucose Arterial Blood Ionized Calcium Urine WBC (Auto) Vancomycin Trough Phenytoin Crossmatch 10/11/20 10/11/20 10/12/20 11:41 13:26 03:52 WBC RBC Hgb Hct MCV MCH MCHC RDW Plt Count Lymph % (Auto) [place] % (Auto) Lymph # (Auto) [place] # (Auto) Baso # (Auto) Seg Neutrophils % Seg Neuts % (Manual) Lymphocytes % (Manual) Monocytes % (Manual) Nucleated RBC % Seg Neutrophils # Seg Neutrophils # Man Lymphocytes # (Manual) Monocytes # (Manual) PT INR APTT Fibrinogen D-Dimer ABG pH POC ABG pCO2 POC ABG pO2 ABG pO2 ABG HCO3 ABG Base Excess ABG Hemoglobin ABG Oxyhemoglobin ABG Sodium ABG Potassium ABG Chloride ABG Glucose VBG pH Oxyhemoglobin Carboxyhemoglobin Sodium Potassium Chloride Carbon Dioxide BUN Creatinine Glucose POC Glucose 116 H 114 H Random Insulin C-Peptide Lactic Acid Calcium Ionized Calcium Phosphorus Magnesium AST ALT Alkaline Phosphatase Lactate Dehydrogenase NT-Pro-B Natriuret Pep Total Protein Albumin Arterial Blood Glucose Arterial Blood Ionized Calcium Urine WBC (Auto) 24.0 H Vancomycin Trough Phenytoin Crossmatch 10/12/20 10/12/20 10/12/20 04:24 14:47 21:33 WBC RBC Hgb Hct MCV MCH MCHC RDW Plt Count Lymph % (Auto) [place] % (Auto) Lymph # (Auto) [place] # (Auto) Baso # (Auto) Seg Neutrophils % Seg Neuts % (Manual) Lymphocytes % (Manual) Monocytes % (Manual) Nucleated RBC % Seg Neutrophils # Seg Neutrophils # Man Lymphocytes # (Manual) Monocytes # (Manual) PT INR APTT Fibrinogen D-Dimer ABG pH POC ABG pCO2 POC ABG pO2 ABG pO2 ABG HCO3 ABG Base Excess ABG Hemoglobin ABG Oxyhemoglobin ABG Sodium ABG Potassium ABG Chloride ABG Glucose VBG pH Oxyhemoglobin Carboxyhemoglobin Sodium Potassium Chloride 109.9 H Carbon Dioxide 13 L BUN 18 H Creatinine Glucose 119 H POC Glucose 107 H Random Insulin C-Peptide Lactic Acid Calcium 7.6 L Ionized Calcium Phosphorus Magnesium 1.60 L AST ALT Alkaline Phosphatase Lactate Dehydrogenase NT-Pro-B Natriuret Pep Total Protein Albumin Arterial Blood Glucose Arterial Blood Ionized Calcium Urine WBC (Auto) Vancomycin Trough Phenytoin Crossmatch 12/28/20 12/28/20 12/29/20 Unknown Unknown 07:00 WBC 24.3 H RBC 3.38 L Hgb 9.8 L Hct MCV MCH MCHC RDW 18.7 H Plt Count Lymph % (Auto) [place] % (Auto) Lymph # (Auto) [place] # (Auto) Baso # (Auto) Seg Neutrophils % Seg Neuts % (Manual) 93.5 H Lymphocytes % (Manual) 4.5 L Monocytes % (Manual) Nucleated RBC % Seg Neutrophils # Seg Neutrophils # Man 22.7 H Lymphocytes # (Manual) 1.1 L Monocytes # (Manual) PT INR APTT Fibrinogen D-Dimer ABG pH POC ABG pCO2 POC ABG pO2 ABG pO2 ABG HCO3 ABG Base Excess ABG Hemoglobin ABG Oxyhemoglobin ABG Sodium ABG Potassium ABG Chloride ABG Glucose VBG pH Oxyhemoglobin Carboxyhemoglobin Sodium 135 L D Potassium 3.1 L Chloride Carbon Dioxide 17 L BUN Creatinine Glucose 510 H* POC Glucose Random Insulin C-Peptide Lactic Acid Calcium 7.2 L Ionized Calcium Phosphorus Magnesium AST ALT Alkaline Phosphatase Lactate Dehydrogenase NT-Pro-B Natriuret Pep Total Protein Albumin Arterial Blood Glucose Arterial Blood Ionized Calcium Urine WBC (Auto) Vancomycin Trough Phenytoin 5.7 L Crossmatch 10/13/20 10/13/20 10/13/20 07:00 07:00 07:18 WBC 23.6 H RBC 3.26 L Hgb 9.4 L Hct 28.7 L MCV MCH MCHC RDW 18.3 H Plt Count Lymph % (Auto) [place] % (Auto) Lymph # (Auto) [place] # (Auto) Baso # (Auto) Seg Neutrophils % Seg Neuts % (Manual) Lymphocytes % (Manual) Monocytes % (Manual) Nucleated RBC % Seg Neutrophils # Seg Neutrophils # Man Lymphocytes # (Manual) Monocytes # (Manual) PT INR APTT Fibrinogen D-Dimer ABG pH 7.473 H POC ABG pCO2 20.7 L POC ABG pO2 137.9 H ABG pO2 ABG HCO3 ABG Base Excess ABG Hemoglobin 11.2 L ABG Oxyhemoglobin 98.3 H ABG Sodium 135.9 L ABG Potassium ABG Chloride 111.0 H ABG Glucose 109 H VBG pH Oxyhemoglobin Carboxyhemoglobin 0.3 L Sodium 135 L Potassium 3.5 L Chloride 109.1 H Carbon Dioxide 18 L BUN Creatinine Glucose POC Glucose Random Insulin C-Peptide Lactic Acid Calcium 7.3 L Ionized Calcium Phosphorus Magnesium 1.60 L AST ALT Alkaline Phosphatase Lactate Dehydrogenase NT-Pro-B Natriuret Pep Total Protein Albumin Arterial Blood Glucose 109 H Arterial Blood Ionized Calcium Urine WBC (Auto) Vancomycin Trough Phenytoin Crossmatch 10/14/20 10/14/20 10/15/20 04:00 04:00 05:50 WBC 28.6 H 23.2 H RBC 3.61 L 3.43 L Hgb 9.9 L Hct 30.0 L MCV MCH MCHC RDW 18.3 H 18.2 H Plt Count Lymph % (Auto) [place] % (Auto) Lymph # (Auto) [place] # (Auto) Baso # (Auto) Seg Neutrophils % Seg Neuts % (Manual) 88.0 H 90.0 H Lymphocytes % (Manual) 5.0 L 4.0 L Monocytes % (Manual) Nucleated RBC % Seg Neutrophils # Seg Neutrophils # Man 25.2 H 20.9 H Lymphocytes # (Manual) 0.9 L Monocytes # (Manual) 1.4 H 0.9 H PT INR APTT Fibrinogen D-Dimer ABG pH POC ABG pCO2 POC ABG pO2 ABG pO2 ABG HCO3 ABG Base Excess ABG Hemoglobin ABG Oxyhemoglobin ABG Sodium ABG Potassium ABG Chloride ABG Glucose VBG pH Oxyhemoglobin Carboxyhemoglobin Sodium Potassium Chloride 109.9 H Carbon Dioxide 17 L BUN Creatinine Glucose POC Glucose Random Insulin C-Peptide Lactic Acid Calcium Ionized Calcium Phosphorus Magnesium AST ALT Alkaline Phosphatase Lactate Dehydrogenase NT-Pro-B Natriuret Pep Total Protein Albumin Arterial Blood Glucose Arterial Blood Ionized Calcium Urine WBC (Auto) Vancomycin Trough Phenytoin Crossmatch 10/15/20 10/16/20 10/17/20 05:50 11:57 04:57 WBC 15.2 H RBC 3.43 L Hgb Hct MCV MCH MCHC RDW 18.1 H Plt Count Lymph % (Auto) [place] % (Auto) Lymph # (Auto) [place] # (Auto) Baso # (Auto) Seg Neutrophils % Seg Neuts % (Manual) Lymphocytes % (Manual) Monocytes % (Manual) Nucleated RBC % Seg Neutrophils # Seg Neutrophils # Man Lymphocytes # (Manual) Monocytes # (Manual) PT INR APTT Fibrinogen D-Dimer ABG pH POC ABG pCO2 POC ABG pO2 ABG pO2 ABG HCO3 ABG Base Excess ABG Hemoglobin ABG Oxyhemoglobin ABG Sodium ABG Potassium ABG Chloride ABG Glucose VBG pH Oxyhemoglobin Carboxyhemoglobin Sodium Potassium Chloride 110.3 H Carbon Dioxide 18 L BUN Creatinine Glucose 105 H POC Glucose 111 H Random Insulin C-Peptide Lactic Acid Calcium 8.3 L Ionized Calcium Phosphorus Magnesium AST ALT Alkaline Phosphatase Lactate Dehydrogenase NT-Pro-B Natriuret Pep Total Protein Albumin Arterial Blood Glucose Arterial Blood Ionized Calcium Urine WBC (Auto) Vancomycin Trough Phenytoin Crossmatch 10/17/20 10/17/20 10/18/20 05:25 21:16 01:31 WBC RBC Hgb Hct MCV MCH MCHC RDW Plt Count Lymph % (Auto) [place] % (Auto) Lymph # (Auto) [place] # (Auto) Baso # (Auto) Seg Neutrophils % Seg Neuts % (Manual) Lymphocytes % (Manual) Monocytes % (Manual) Nucleated RBC % Seg Neutrophils # Seg Neutrophils # Man Lymphocytes # (Manual) Monocytes # (Manual) PT INR APTT Fibrinogen D-Dimer ABG pH POC ABG pCO2 POC ABG pO2 ABG pO2 ABG HCO3 ABG Base Excess ABG Hemoglobin ABG Oxyhemoglobin ABG Sodium ABG Potassium ABG Chloride ABG Glucose VBG pH Oxyhemoglobin Carboxyhemoglobin Sodium Potassium Chloride Carbon Dioxide BUN Creatinine Glucose POC Glucose 107 H 106 H 119 H Random Insulin C-Peptide Lactic Acid Calcium Ionized Calcium Phosphorus Magnesium AST ALT Alkaline Phosphatase Lactate Dehydrogenase NT-Pro-B Natriuret Pep Total Protein Albumin Arterial Blood Glucose Arterial Blood Ionized Calcium Urine WBC (Auto) Vancomycin Trough Phenytoin Crossmatch 10/18/20 10/18/20 10/19/20 05:45 11:23 01:14 WBC RBC Hgb Hct MCV MCH MCHC RDW Plt Count Lymph % (Auto) [place] % (Auto) Lymph # (Auto) [place] # (Auto) Baso # (Auto) Seg Neutrophils % Seg Neuts % (Manual) Lymphocytes % (Manual) Monocytes % (Manual) Nucleated RBC % Seg Neutrophils # Seg Neutrophils # Man Lymphocytes # (Manual) Monocytes # (Manual) PT INR APTT Fibrinogen D-Dimer ABG pH POC ABG pCO2 POC ABG pO2 ABG pO2 ABG HCO3 ABG Base Excess ABG Hemoglobin ABG Oxyhemoglobin ABG Sodium ABG Potassium ABG Chloride ABG Glucose VBG pH Oxyhemoglobin Carboxyhemoglobin Sodium Potassium Chloride Carbon Dioxide BUN Creatinine Glucose POC Glucose 106 H 115 H 108 H Random Insulin C-Peptide Lactic Acid Calcium Ionized Calcium Phosphorus Magnesium AST ALT Alkaline Phosphatase Lactate Dehydrogenase NT-Pro-B Natriuret Pep Total Protein Albumin Arterial Blood Glucose Arterial Blood Ionized Calcium Urine WBC (Auto) Vancomycin Trough Phenytoin Crossmatch 10/19/20 10/20/20 10/20/20 09:57 05:40 07:59 WBC RBC Hgb Hct MCV MCH MCHC RDW Plt Count Lymph % (Auto) [place] % (Auto) Lymph # (Auto) [place] # (Auto) Baso # (Auto) Seg Neutrophils % Seg Neuts % (Manual) Lymphocytes % (Manual) Monocytes % (Manual) Nucleated RBC % Seg Neutrophils # Seg Neutrophils # Man Lymphocytes # (Manual) Monocytes # (Manual) PT INR APTT Fibrinogen D-Dimer ABG pH POC ABG pCO2 POC ABG pO2 ABG pO2 ABG HCO3 ABG Base Excess ABG Hemoglobin ABG Oxyhemoglobin ABG Sodium ABG Potassium ABG Chloride ABG Glucose VBG pH Oxyhemoglobin Carboxyhemoglobin Sodium Potassium Chloride Carbon Dioxide BUN Creatinine Glucose 106 H POC Glucose 122 H 109 H Random Insulin C-Peptide Lactic Acid Calcium Ionized Calcium Phosphorus Magnesium AST ALT Alkaline Phosphatase Lactate Dehydrogenase NT-Pro-B Natriuret Pep Total Protein Albumin Arterial Blood Glucose Arterial Blood Ionized Calcium Urine WBC (Auto) Vancomycin Trough Phenytoin Crossmatch 10/20/20 10/20/20 10/21/20 16:52 16:52 13:54 WBC 18.8 H 17.0 H RBC Hgb Hct MCV MCH MCHC RDW 17.7 H 17.8 H Plt Count 547 H 544 H Lymph % (Auto) 11.2 L [place] % (Auto) 8.1 H Lymph # (Auto) [place] # (Auto) 1.5 H Baso # (Auto) 0.2 H Seg Neutrophils % 78.8 H Seg Neuts % (Manual) Lymphocytes % (Manual) Monocytes % (Manual) Nucleated RBC % Seg Neutrophils # 14.8 H Seg Neutrophils # Man Lymphocytes # (Manual) Monocytes # (Manual) PT INR APTT Fibrinogen D-Dimer ABG pH POC ABG pCO2 POC ABG pO2 ABG pO2 ABG HCO3 ABG Base Excess ABG Hemoglobin ABG Oxyhemoglobin ABG Sodium ABG Potassium ABG Chloride ABG Glucose VBG pH Oxyhemoglobin Carboxyhemoglobin Sodium Potassium Chloride Carbon Dioxide BUN Creatinine Glucose POC Glucose Random Insulin C-Peptide Lactic Acid Calcium Ionized Calcium Phosphorus Magnesium AST ALT Alkaline Phosphatase Lactate Dehydrogenase NT-Pro-B Natriuret Pep Total Protein Albumin Arterial Blood Glucose Arterial Blood Ionized Calcium Urine WBC (Auto) Vancomycin Trough 34.5 H Phenytoin Crossmatch 10/21/20 10/22/20 10/23/20 13:54 07:26 05:34 WBC 18.7 H 13.0 H RBC 3.64 L 3.50 L Hgb Hct 30.0 L MCV MCH MCHC 35 H RDW 17.7 H 17.6 H Plt Count 502 H 503 H Lymph % (Auto) [place] % (Auto) Lymph # (Auto) [place] # (Auto) Baso # (Auto) Seg Neutrophils % Seg Neuts % (Manual) Lymphocytes % (Manual) Monocytes % (Manual) Nucleated RBC % Seg Neutrophils # Seg Neutrophils # Man Lymphocytes # (Manual) Monocytes # (Manual) PT INR APTT Fibrinogen D-Dimer ABG pH POC ABG pCO2 POC ABG pO2 ABG pO2 ABG HCO3 ABG Base Excess ABG Hemoglobin ABG Oxyhemoglobin ABG Sodium ABG Potassium ABG Chloride ABG Glucose VBG pH Oxyhemoglobin Carboxyhemoglobin Sodium 136 L Potassium Chloride Carbon Dioxide BUN Creatinine Glucose 120 H POC Glucose Random Insulin C-Peptide Lactic Acid Calcium Ionized Calcium Phosphorus Magnesium AST ALT Alkaline Phosphatase Lactate Dehydrogenase NT-Pro-B Natriuret Pep Total Protein Albumin Arterial Blood Glucose Arterial Blood Ionized Calcium Urine WBC (Auto) Vancomycin Trough Phenytoin Crossmatch 10/23/20 10/26/20 10/27/20 05:34 10:30 07:53 WBC 13.6 H RBC 3.38 L Hgb 10.0 L Hct 28.8 L MCV MCH MCHC 35 H RDW 17.6 H Plt Count Lymph % (Auto) [place] % (Auto) Lymph # (Auto) [place] # (Auto) Baso # (Auto) Seg Neutrophils % Seg Neuts % (Manual) Lymphocytes % (Manual) Monocytes % (Manual) Nucleated RBC % Seg Neutrophils # Seg Neutrophils # Man Lymphocytes # (Manual) Monocytes # (Manual) PT INR APTT Fibrinogen D-Dimer ABG pH 7.459 H POC ABG pCO2 POC ABG pO2 ABG pO2 112.2 H ABG HCO3 ABG Base Excess ABG Hemoglobin ABG Oxyhemoglobin ABG Sodium ABG Potassium ABG Chloride ABG Glucose VBG pH Oxyhemoglobin Carboxyhemoglobin Sodium 135 L Potassium Chloride Carbon Dioxide BUN Creatinine Glucose 105 H POC Glucose Random Insulin C-Peptide Lactic Acid Calcium Ionized Calcium Phosphorus Magnesium AST ALT Alkaline Phosphatase Lactate Dehydrogenase NT-Pro-B Natriuret Pep Total Protein Albumin Arterial Blood Glucose Arterial Blood Ionized Calcium Urine WBC (Auto) Vancomycin Trough Phenytoin Crossmatch 10/27/20 10/27/20 10/28/20 07:53 11:31 05:19 WBC RBC Hgb Hct MCV MCH MCHC RDW Plt Count Lymph % (Auto) [place] % (Auto) Lymph # (Auto) [place] # (Auto) Baso # (Auto) Seg Neutrophils % Seg Neuts % (Manual) Lymphocytes % (Manual) Monocytes % (Manual) Nucleated RBC % Seg Neutrophils # Seg Neutrophils # Man Lymphocytes # (Manual) Monocytes # (Manual) PT INR APTT Fibrinogen D-Dimer ABG pH POC ABG pCO2 POC ABG pO2 ABG pO2 ABG HCO3 ABG Base Excess ABG Hemoglobin ABG Oxyhemoglobin ABG Sodium ABG Potassium ABG Chloride ABG Glucose VBG pH Oxyhemoglobin Carboxyhemoglobin Sodium Potassium Chloride Carbon Dioxide BUN 20 H Creatinine Glucose 112 H POC Glucose 113 H 112 H Random Insulin C-Peptide Lactic Acid Calcium Ionized Calcium Phosphorus Magnesium AST 83 H ALT Alkaline Phosphatase Lactate Dehydrogenase NT-Pro-B Natriuret Pep Total Protein Albumin 3.8 L Arterial Blood Glucose Arterial Blood Ionized Calcium Urine WBC (Auto) Vancomycin Trough Phenytoin Crossmatch 10/29/20 10/29/20 10/29/20 07:56 07:56 11:37 WBC 13.6 H RBC Hgb Hct MCV MCH MCHC RDW 17.0 H Plt Count Lymph % (Auto) [place] % (Auto) Lymph # (Auto) [place] # (Auto) Baso # (Auto) Seg Neutrophils % Seg Neuts % (Manual) 80.0 H Lymphocytes % (Manual) Monocytes % (Manual) Nucleated RBC % Seg Neutrophils # Seg Neutrophils # Man 10.9 H Lymphocytes # (Manual) Monocytes # (Manual) PT INR APTT Fibrinogen D-Dimer ABG pH POC ABG pCO2 POC ABG pO2 ABG pO2 ABG HCO3 ABG Base Excess ABG Hemoglobin ABG Oxyhemoglobin ABG Sodium ABG Potassium ABG Chloride ABG Glucose VBG pH Oxyhemoglobin Carboxyhemoglobin Sodium Potassium Chloride Carbon Dioxide BUN Creatinine Glucose POC Glucose 108 H Random Insulin C-Peptide Lactic Acid Calcium Ionized Calcium Phosphorus 4.70 H Magnesium AST ALT Alkaline Phosphatase Lactate Dehydrogenase NT-Pro-B Natriuret Pep Total Protein Albumin Arterial Blood Glucose Arterial Blood Ionized Calcium Urine WBC (Auto) Vancomycin Trough Phenytoin Crossmatch 10/29/20 10/30/20 10/30/20 13:32 12:11 17:19 WBC RBC Hgb Hct MCV MCH MCHC RDW Plt Count Lymph % (Auto) [place] % (Auto) Lymph # (Auto) [place] # (Auto) Baso # (Auto) Seg Neutrophils % Seg Neuts % (Manual) Lymphocytes % (Manual) Monocytes % (Manual) Nucleated RBC % Seg Neutrophils # Seg Neutrophils # Man Lymphocytes # (Manual) Monocytes # (Manual) PT INR APTT Fibrinogen D-Dimer ABG pH POC ABG pCO2 POC ABG pO2 ABG pO2 ABG HCO3 ABG Base Excess ABG Hemoglobin ABG Oxyhemoglobin ABG Sodium ABG Potassium ABG Chloride ABG Glucose VBG pH Oxyhemoglobin Carboxyhemoglobin Sodium Potassium Chloride Carbon Dioxide BUN Creatinine Glucose POC Glucose 108 H 106 H 107 H Random Insulin C-Peptide Lactic Acid Calcium Ionized Calcium Phosphorus Magnesium AST ALT Alkaline Phosphatase Lactate Dehydrogenase NT-Pro-B Natriuret Pep Total Protein Albumin Arterial Blood Glucose Arterial Blood Ionized Calcium Urine WBC (Auto) Vancomycin Trough Phenytoin Crossmatch 10/31/20 10/31/20 11/01/20 03:20 05:43 04:55 WBC RBC Hgb Hct MCV MCH MCHC RDW Plt Count Lymph % (Auto) [place] % (Auto) Lymph # (Auto) [place] # (Auto) Baso # (Auto) Seg Neutrophils % Seg Neuts % (Manual) Lymphocytes % (Manual) Monocytes % (Manual) Nucleated RBC % Seg Neutrophils # Seg Neutrophils # Man Lymphocytes # (Manual) Monocytes # (Manual) PT INR APTT Fibrinogen D-Dimer ABG pH POC ABG pCO2 POC ABG pO2 ABG pO2 ABG HCO3 ABG Base Excess ABG Hemoglobin ABG Oxyhemoglobin ABG Sodium ABG Potassium ABG Chloride ABG Glucose VBG pH Oxyhemoglobin Carboxyhemoglobin Sodium Potassium Chloride Carbon Dioxide BUN Creatinine Glucose POC Glucose 108 H 115 H 108 H Random Insulin C-Peptide Lactic Acid Calcium Ionized Calcium Phosphorus Magnesium AST ALT Alkaline Phosphatase Lactate Dehydrogenase NT-Pro-B Natriuret Pep Total Protein Albumin Arterial Blood Glucose Arterial Blood Ionized Calcium Urine WBC (Auto) Vancomycin Trough Phenytoin Crossmatch 11/01/20 11/01/20 11/01/20 05:01 16:47 21:36 WBC RBC Hgb Hct MCV MCH MCHC RDW Plt Count Lymph % (Auto) [place] % (Auto) Lymph # (Auto) [place] # (Auto) Baso # (Auto) Seg Neutrophils % Seg Neuts % (Manual) Lymphocytes % (Manual) Monocytes % (Manual) Nucleated RBC % Seg Neutrophils # Seg Neutrophils # Man Lymphocytes # (Manual) Monocytes # (Manual) PT INR APTT Fibrinogen D-Dimer ABG pH POC ABG pCO2 POC ABG pO2 ABG pO2 ABG HCO3 ABG Base Excess ABG Hemoglobin ABG Oxyhemoglobin ABG Sodium ABG Potassium ABG Chloride ABG Glucose VBG pH Oxyhemoglobin Carboxyhemoglobin Sodium 135 L Potassium Chloride Carbon Dioxide BUN Creatinine Glucose POC Glucose 116 H 112 H Random Insulin C-Peptide Lactic Acid Calcium Ionized Calcium Phosphorus Magnesium AST 93 H ALT Alkaline Phosphatase 132 H Lactate Dehydrogenase NT-Pro-B Natriuret Pep Total Protein Albumin 3.6 L Arterial Blood Glucose Arterial Blood Ionized Calcium Urine WBC (Auto) Vancomycin Trough Phenytoin Crossmatch 11/02/20 11/02/20 11/02/20 17:45 19:19 19:19 WBC RBC Hgb Hct MCV MCH MCHC RDW Plt Count Lymph % (Auto) [place] % (Auto) Lymph # (Auto) [place] # (Auto) Baso # (Auto) Seg Neutrophils % Seg Neuts % (Manual) Lymphocytes % (Manual) Monocytes % (Manual) Nucleated RBC % Seg Neutrophils # Seg Neutrophils # Man Lymphocytes # (Manual) Monocytes # (Manual) PT INR APTT Fibrinogen D-Dimer ABG pH POC ABG pCO2 POC ABG pO2 ABG pO2 ABG HCO3 ABG Base Excess ABG Hemoglobin ABG Oxyhemoglobin ABG Sodium ABG Potassium ABG Chloride ABG Glucose VBG pH Oxyhemoglobin Carboxyhemoglobin Sodium Potassium Chloride Carbon Dioxide BUN Creatinine Glucose POC Glucose 107 H Random Insulin 43.2 H C-Peptide 6.23 H Lactic Acid Calcium Ionized Calcium Phosphorus Magnesium AST ALT Alkaline Phosphatase Lactate Dehydrogenase NT-Pro-B Natriuret Pep Total Protein Albumin Arterial Blood Glucose Arterial Blood Ionized Calcium Urine WBC (Auto) Vancomycin Trough Phenytoin Crossmatch 11/03/20 11/04/20 11/04/20 21:49 05:00 05:00 WBC 13.8 H RBC Hgb Hct MCV MCH MCHC RDW 16.6 H Plt Count Lymph % (Auto) 11.8 L [place] % (Auto) 11.0 H Lymph # (Auto) [place] # (Auto) 1.5 H Baso # (Auto) Seg Neutrophils % 75.1 H Seg Neuts % (Manual) Lymphocytes % (Manual) Monocytes % (Manual) Nucleated RBC % Seg Neutrophils # 10.4 H Seg Neutrophils # Man Lymphocytes # (Manual) Monocytes # (Manual) PT INR APTT Fibrinogen D-Dimer ABG pH POC ABG pCO2 POC ABG pO2 ABG pO2 ABG HCO3 ABG Base Excess ABG Hemoglobin ABG Oxyhemoglobin ABG Sodium ABG Potassium ABG Chloride ABG Glucose VBG pH Oxyhemoglobin Carboxyhemoglobin Sodium Potassium Chloride Carbon Dioxide BUN Creatinine Glucose 112 H POC Glucose 109 H Random Insulin C-Peptide Lactic Acid Calcium Ionized Calcium Phosphorus Magnesium AST 90 H ALT Alkaline Phosphatase Lactate Dehydrogenase NT-Pro-B Natriuret Pep Total Protein Albumin 3.8 L Arterial Blood Glucose Arterial Blood Ionized Calcium Urine WBC (Auto) Vancomycin Trough Phenytoin Crossmatch 11/04/20 11/04/20 11/05/20 06:03 23:47 07:47 WBC RBC Hgb Hct MCV MCH MCHC RDW Plt Count Lymph % (Auto) [place] % (Auto) Lymph # (Auto) [place] # (Auto) Baso # (Auto) Seg Neutrophils % Seg Neuts % (Manual) Lymphocytes % (Manual) Monocytes % (Manual) Nucleated RBC % Seg Neutrophils # Seg Neutrophils # Man Lymphocytes # (Manual) Monocytes # (Manual) PT INR APTT Fibrinogen D-Dimer ABG pH POC ABG pCO2 POC ABG pO2 ABG pO2 ABG HCO3 ABG Base Excess ABG Hemoglobin ABG Oxyhemoglobin ABG Sodium ABG Potassium ABG Chloride ABG Glucose VBG pH Oxyhemoglobin Carboxyhemoglobin Sodium Potassium Chloride Carbon Dioxide BUN Creatinine Glucose POC Glucose 107 H 121 H 111 H Random Insulin C-Peptide Lactic Acid Calcium Ionized Calcium Phosphorus Magnesium AST ALT Alkaline Phosphatase Lactate Dehydrogenase NT-Pro-B Natriuret Pep Total Protein Albumin Arterial Blood Glucose Arterial Blood Ionized Calcium Urine WBC (Auto) Vancomycin Trough Phenytoin Crossmatch 11/05/20 11/06/20 11/06/20 23:24 17:04 23:36 WBC RBC Hgb Hct MCV MCH MCHC RDW Plt Count Lymph % (Auto) [place] % (Auto) Lymph # (Auto) [place] # (Auto) Baso # (Auto) Seg Neutrophils % Seg Neuts % (Manual) Lymphocytes % (Manual) Monocytes % (Manual) Nucleated RBC % Seg Neutrophils # Seg Neutrophils # Man Lymphocytes # (Manual) Monocytes # (Manual) PT INR APTT Fibrinogen D-Dimer ABG pH POC ABG pCO2 POC ABG pO2 ABG pO2 ABG HCO3 ABG Base Excess ABG Hemoglobin ABG Oxyhemoglobin ABG Sodium ABG Potassium ABG Chloride ABG Glucose VBG pH Oxyhemoglobin Carboxyhemoglobin Sodium Potassium Chloride Carbon Dioxide BUN Creatinine Glucose POC Glucose 111 H 112 H 108 H Random Insulin C-Peptide Lactic Acid Calcium Ionized Calcium Phosphorus Magnesium AST ALT Alkaline Phosphatase Lactate Dehydrogenase NT-Pro-B Natriuret Pep Total Protein Albumin Arterial Blood Glucose Arterial Blood Ionized Calcium Urine WBC (Auto) Vancomycin Trough Phenytoin Crossmatch 11/07/20 11/07/20 11/07/20 03:33 04:44 04:44 WBC RBC Hgb Hct MCV MCH MCHC RDW 16.6 H Plt Count Lymph % (Auto) [place] % (Auto) 13.1 H Lymph # (Auto) [place] # (Auto) 1.3 H Baso # (Auto) Seg Neutrophils % Seg Neuts % (Manual) Lymphocytes % (Manual) Monocytes % (Manual) Nucleated RBC % Seg Neutrophils # Seg Neutrophils # Man Lymphocytes # (Manual) Monocytes # (Manual) PT INR APTT Fibrinogen D-Dimer ABG pH POC ABG pCO2 POC ABG pO2 ABG pO2 ABG HCO3 ABG Base Excess ABG Hemoglobin ABG Oxyhemoglobin ABG Sodium ABG Potassium ABG Chloride ABG Glucose VBG pH Oxyhemoglobin Carboxyhemoglobin Sodium Potassium Chloride Carbon Dioxide BUN Creatinine Glucose 103 H POC Glucose 109 H Random Insulin C-Peptide Lactic Acid Calcium Ionized Calcium Phosphorus 5.30 H Magnesium AST ALT Alkaline Phosphatase Lactate Dehydrogenase NT-Pro-B Natriuret Pep Total Protein Albumin Arterial Blood Glucose Arterial Blood Ionized Calcium Urine WBC (Auto) Vancomycin Trough Phenytoin Crossmatch 11/07/20 11/07/20 11/08/20 15:58 23:46 07:30 WBC RBC Hgb Hct MCV MCH MCHC RDW Plt Count Lymph % (Auto) [place] % (Auto) Lymph # (Auto) [place] # (Auto) Baso # (Auto) Seg Neutrophils % Seg Neuts % (Manual) Lymphocytes % (Manual) Monocytes % (Manual) Nucleated RBC % Seg Neutrophils # Seg Neutrophils # Man Lymphocytes # (Manual) Monocytes # (Manual) PT INR APTT Fibrinogen D-Dimer ABG pH POC ABG pCO2 POC ABG pO2 ABG pO2 ABG HCO3 ABG Base Excess ABG Hemoglobin ABG Oxyhemoglobin ABG Sodium ABG Potassium ABG Chloride ABG Glucose VBG pH Oxyhemoglobin Carboxyhemoglobin Sodium Potassium Chloride Carbon Dioxide BUN Creatinine Glucose POC Glucose 108 H 106 H 109 H Random Insulin C-Peptide Lactic Acid Calcium Ionized Calcium Phosphorus Magnesium AST ALT Alkaline Phosphatase Lactate Dehydrogenase NT-Pro-B Natriuret Pep Total Protein Albumin Arterial Blood Glucose Arterial Blood Ionized Calcium Urine WBC (Auto) Vancomycin Trough Phenytoin Crossmatch 11/08/20 11/08/20 11/09/20 11:48 23:32 17:10 WBC RBC Hgb Hct MCV MCH MCHC RDW Plt Count Lymph % (Auto) [place] % (Auto) Lymph # (Auto) [place] # (Auto) Baso # (Auto) Seg Neutrophils % Seg Neuts % (Manual) Lymphocytes % (Manual) Monocytes % (Manual) Nucleated RBC % Seg Neutrophils # Seg Neutrophils # Man Lymphocytes # (Manual) Monocytes # (Manual) PT INR APTT Fibrinogen D-Dimer ABG pH POC ABG pCO2 POC ABG pO2 ABG pO2 ABG HCO3 ABG Base Excess ABG Hemoglobin ABG Oxyhemoglobin ABG Sodium ABG Potassium ABG Chloride ABG Glucose VBG pH Oxyhemoglobin Carboxyhemoglobin Sodium Potassium Chloride Carbon Dioxide BUN Creatinine Glucose POC Glucose 110 H 116 H 112 H Random Insulin C-Peptide Lactic Acid Calcium Ionized Calcium Phosphorus Magnesium AST ALT Alkaline Phosphatase Lactate Dehydrogenase NT-Pro-B Natriuret Pep Total Protein Albumin Arterial Blood Glucose Arterial Blood Ionized Calcium Urine WBC (Auto) Vancomycin Trough Phenytoin Crossmatch 11/09/20 11/10/20 11/10/20 21:42 05:49 07:17 WBC RBC Hgb Hct MCV MCH MCHC RDW Plt Count Lymph % (Auto) [place] % (Auto) Lymph # (Auto) [place] # (Auto) Baso # (Auto) Seg Neutrophils % Seg Neuts % (Manual) Lymphocytes % (Manual) Monocytes % (Manual) Nucleated RBC % Seg Neutrophils # Seg Neutrophils # Man Lymphocytes # (Manual) Monocytes # (Manual) PT INR APTT Fibrinogen D-Dimer ABG pH POC ABG pCO2 POC ABG pO2 ABG pO2 ABG HCO3 ABG Base Excess ABG Hemoglobin ABG Oxyhemoglobin ABG Sodium ABG Potassium ABG Chloride ABG Glucose VBG pH Oxyhemoglobin Carboxyhemoglobin Sodium Potassium Chloride Carbon Dioxide BUN Creatinine Glucose POC Glucose 110 H 108 H 111 H Random Insulin C-Peptide Lactic Acid Calcium Ionized Calcium Phosphorus Magnesium AST ALT Alkaline Phosphatase Lactate Dehydrogenase NT-Pro-B Natriuret Pep Total Protein Albumin Arterial Blood Glucose Arterial Blood Ionized Calcium Urine WBC (Auto) Vancomycin Trough Phenytoin Crossmatch 11/10/20 11/11/20 11/11/20 20:36 04:58 11:56 WBC RBC Hgb Hct MCV MCH MCHC RDW Plt Count Lymph % (Auto) [place] % (Auto) Lymph # (Auto) [place] # (Auto) Baso # (Auto) Seg Neutrophils % Seg Neuts % (Manual) Lymphocytes % (Manual) Monocytes % (Manual) Nucleated RBC % Seg Neutrophils # Seg Neutrophils # Man Lymphocytes # (Manual) Monocytes # (Manual) PT INR APTT Fibrinogen D-Dimer ABG pH POC ABG pCO2 POC ABG pO2 ABG pO2 ABG HCO3 ABG Base Excess ABG Hemoglobin ABG Oxyhemoglobin ABG Sodium ABG Potassium ABG Chloride ABG Glucose VBG pH Oxyhemoglobin Carboxyhemoglobin Sodium Potassium Chloride Carbon Dioxide BUN Creatinine Glucose POC Glucose 111 H 109 H 109 H Random Insulin C-Peptide Lactic Acid Calcium Ionized Calcium Phosphorus Magnesium AST ALT Alkaline Phosphatase Lactate Dehydrogenase NT-Pro-B Natriuret Pep Total Protein Albumin Arterial Blood Glucose Arterial Blood Ionized Calcium Urine WBC (Auto) Vancomycin Trough Phenytoin Crossmatch 11/11/20 11/11/20 11/11/20 13:50 13:50 15:50 WBC RBC Hgb Hct MCV MCH MCHC RDW Plt Count Lymph % (Auto) [place] % (Auto) Lymph # (Auto) [place] # (Auto) Baso # (Auto) Seg Neutrophils % Seg Neuts % (Manual) Lymphocytes % (Manual) Monocytes % (Manual) Nucleated RBC % Seg Neutrophils # Seg Neutrophils # Man Lymphocytes # (Manual) Monocytes # (Manual) PT INR APTT Fibrinogen D-Dimer 1974.47 H ABG pH POC ABG pCO2 POC ABG pO2 ABG pO2 ABG HCO3 ABG Base Excess ABG Hemoglobin ABG Oxyhemoglobin ABG Sodium ABG Potassium ABG Chloride ABG Glucose VBG pH Oxyhemoglobin Carboxyhemoglobin Sodium Potassium Chloride Carbon Dioxide BUN Creatinine Glucose POC Glucose 107 H Random Insulin C-Peptide Lactic Acid Calcium Ionized Calcium Phosphorus Magnesium AST ALT Alkaline Phosphatase Lactate Dehydrogenase NT-Pro-B Natriuret Pep Total Protein Albumin Arterial Blood Glucose Arterial Blood Ionized Calcium Urine WBC (Auto) > 182.0 H Vancomycin Trough Phenytoin Crossmatch 11/11/20 11/12/20 11/12/20 23:17 11:33 22:20 WBC RBC Hgb Hct MCV MCH MCHC RDW Plt Count Lymph % (Auto) [place] % (Auto) Lymph # (Auto) [place] # (Auto) Baso # (Auto) Seg Neutrophils % Seg Neuts % (Manual) Lymphocytes % (Manual) Monocytes % (Manual) Nucleated RBC % Seg Neutrophils # Seg Neutrophils # Man Lymphocytes # (Manual) Monocytes # (Manual) PT INR APTT Fibrinogen D-Dimer ABG pH POC ABG pCO2 POC ABG pO2 ABG pO2 ABG HCO3 ABG Base Excess ABG Hemoglobin ABG Oxyhemoglobin ABG Sodium ABG Potassium ABG Chloride ABG Glucose VBG pH Oxyhemoglobin Carboxyhemoglobin Sodium Potassium Chloride Carbon Dioxide BUN Creatinine Glucose POC Glucose 119 H 111 H 107 H Random Insulin C-Peptide Lactic Acid Calcium Ionized Calcium Phosphorus Magnesium AST ALT Alkaline Phosphatase Lactate Dehydrogenase NT-Pro-B Natriuret Pep Total Protein Albumin Arterial Blood Glucose Arterial Blood Ionized Calcium Urine WBC (Auto) Vancomycin Trough Phenytoin Crossmatch 11/13/20 11/13/20 11/13/20 01:52 07:33 10:05 WBC RBC Hgb Hct MCV MCH MCHC RDW Plt Count Lymph % (Auto) [place] % (Auto) Lymph # (Auto) [place] # (Auto) Baso # (Auto) Seg Neutrophils % Seg Neuts % (Manual) Lymphocytes % (Manual) Monocytes % (Manual) Nucleated RBC % Seg Neutrophils # Seg Neutrophils # Man Lymphocytes # (Manual) Monocytes # (Manual) PT INR APTT Fibrinogen D-Dimer ABG pH POC ABG pCO2 POC ABG pO2 ABG pO2 ABG HCO3 ABG Base Excess ABG Hemoglobin ABG Oxyhemoglobin ABG Sodium ABG Potassium ABG Chloride ABG Glucose VBG pH Oxyhemoglobin Carboxyhemoglobin Sodium Potassium Chloride Carbon Dioxide BUN Creatinine Glucose 114 H POC Glucose 124 H 106 H Random Insulin C-Peptide Lactic Acid Calcium Ionized Calcium Phosphorus 4.60 H Magnesium AST ALT Alkaline Phosphatase Lactate Dehydrogenase NT-Pro-B Natriuret Pep Total Protein Albumin Arterial Blood Glucose Arterial Blood Ionized Calcium Urine WBC (Auto) Vancomycin Trough Phenytoin Crossmatch 11/13/20 11/13/20 11/14/20 11:50 17:20 05:26 WBC RBC Hgb Hct MCV MCH MCHC RDW Plt Count Lymph % (Auto) [place] % (Auto) Lymph # (Auto) [place] # (Auto) Baso # (Auto) Seg Neutrophils % Seg Neuts % (Manual) Lymphocytes % (Manual) Monocytes % (Manual) Nucleated RBC % Seg Neutrophils # Seg Neutrophils # Man Lymphocytes # (Manual) Monocytes # (Manual) PT INR APTT Fibrinogen D-Dimer ABG pH POC ABG pCO2 POC ABG pO2 ABG pO2 ABG HCO3 ABG Base Excess ABG Hemoglobin ABG Oxyhemoglobin ABG Sodium ABG Potassium ABG Chloride ABG Glucose VBG pH Oxyhemoglobin Carboxyhemoglobin Sodium Potassium Chloride Carbon Dioxide BUN Creatinine Glucose POC Glucose 113 H 110 H 110 H Random Insulin C-Peptide Lactic Acid Calcium Ionized Calcium Phosphorus Magnesium AST ALT Alkaline Phosphatase Lactate Dehydrogenase NT-Pro-B Natriuret Pep Total Protein Albumin Arterial Blood Glucose Arterial Blood Ionized Calcium Urine WBC (Auto) Vancomycin Trough Phenytoin Crossmatch 11/14/20 11/15/20 11/15/20 23:23 05:07 11:48 WBC RBC Hgb Hct MCV MCH MCHC RDW Plt Count Lymph % (Auto) [place] % (Auto) Lymph # (Auto) [place] # (Auto) Baso # (Auto) Seg Neutrophils % Seg Neuts % (Manual) Lymphocytes % (Manual) Monocytes % (Manual) Nucleated RBC % Seg Neutrophils # Seg Neutrophils # Man Lymphocytes # (Manual) Monocytes # (Manual) PT INR APTT Fibrinogen D-Dimer ABG pH POC ABG pCO2 POC ABG pO2 ABG pO2 ABG HCO3 ABG Base Excess ABG Hemoglobin ABG Oxyhemoglobin ABG Sodium ABG Potassium ABG Chloride ABG Glucose VBG pH Oxyhemoglobin Carboxyhemoglobin Sodium Potassium Chloride Carbon Dioxide BUN Creatinine Glucose POC Glucose 112 H 115 H 114 H Random Insulin C-Peptide Lactic Acid Calcium Ionized Calcium Phosphorus Magnesium AST ALT Alkaline Phosphatase Lactate Dehydrogenase NT-Pro-B Natriuret Pep Total Protein Albumin Arterial Blood Glucose Arterial Blood Ionized Calcium Urine WBC (Auto) Vancomycin Trough Phenytoin Crossmatch 11/16/20 11/17/20 11/18/20 05:06 00:17 05:04 WBC RBC Hgb Hct MCV MCH MCHC RDW Plt Count Lymph % (Auto) [place] % (Auto) Lymph # (Auto) [place] # (Auto) Baso # (Auto) Seg Neutrophils % Seg Neuts % (Manual) Lymphocytes % (Manual) Monocytes % (Manual) Nucleated RBC % Seg Neutrophils # Seg Neutrophils # Man Lymphocytes # (Manual) Monocytes # (Manual) PT INR APTT Fibrinogen D-Dimer ABG pH POC ABG pCO2 POC ABG pO2 ABG pO2 ABG HCO3 ABG Base Excess ABG Hemoglobin ABG Oxyhemoglobin ABG Sodium ABG Potassium ABG Chloride ABG Glucose VBG pH Oxyhemoglobin Carboxyhemoglobin Sodium Potassium Chloride Carbon Dioxide BUN Creatinine Glucose POC Glucose 110 H 115 H 111 H Random Insulin C-Peptide Lactic Acid Calcium Ionized Calcium Phosphorus Magnesium AST ALT Alkaline Phosphatase Lactate Dehydrogenase NT-Pro-B Natriuret Pep Total Protein Albumin Arterial Blood Glucose Arterial Blood Ionized Calcium Urine WBC (Auto) Vancomycin Trough Phenytoin Crossmatch 11/21/20 11/21/20 00:04 05:51 WBC RBC Hgb Hct MCV MCH MCHC RDW Plt Count Lymph % (Auto) [place] % (Auto) Lymph # (Auto) [place] # (Auto) Baso # (Auto) Seg Neutrophils % Seg Neuts % (Manual) Lymphocytes % (Manual) Monocytes % (Manual) Nucleated RBC % Seg Neutrophils # Seg Neutrophils # Man Lymphocytes # (Manual) Monocytes # (Manual) PT INR APTT Fibrinogen D-Dimer ABG pH POC ABG pCO2 POC ABG pO2 ABG pO2 ABG HCO3 ABG Base Excess ABG Hemoglobin ABG Oxyhemoglobin ABG Sodium ABG Potassium ABG Chloride ABG Glucose VBG pH Oxyhemoglobin Carboxyhemoglobin Sodium Potassium Chloride Carbon Dioxide BUN Creatinine Glucose POC Glucose 117 H 112 H Random Insulin C-Peptide Lactic Acid Calcium Ionized Calcium Phosphorus Magnesium AST ALT Alkaline Phosphatase Lactate Dehydrogenase NT-Pro-B Natriuret Pep Total Protein Albumin Arterial Blood Glucose Arterial Blood Ionized Calcium Urine WBC (Auto) Vancomycin Trough Phenytoin Crossmatch
[2020-11-21] MEDS ORDERED: LORazepam 2 MG/ML VIAL IV ONE (15:00)
[2020-11-22] MEDS: hydrALAZINE 25 MG TAB PO SCH ×3 (06:04→22:07)
[2020-11-22] MEDS: SODIUM BICARBONATE 650 MG TAB PO SCH ×3 (09:34→19:54)
[2020-11-22] MEDS: FAMOTIDINE 20 MG TAB PO SCH ×2 (09:35→22:07)
[2020-11-22] MEDS: ENOXAPARIN 40 MG/0.4 ML INJ SUB-Q SCH (09:35)
[2020-11-22] MEDS: FUROSEMIDE 40 MG TAB PO SCH (09:35)
--- NOTE | 2020-11-22 12:21 | Progress Note ---
Assessment and Plan 30 y/o female with Eclampsia, s/p emergent section with DIC, acute respiratory failure and worsening renal function. Post cardiac arrest with residual anoxic encephalopathy. Remain hypoglycemic requiring D10 infusion continuously 11/22/2020: Patient is more stable less agitated and calm. 1 dose of Ativan given yesterday seems to have helped. 11/21/2020: Patient remain unchanged quite agitated today. We will try small dose of IV Ativan. Prognosis remains guarded. 11/19/20: Pulm status stable. Will see as needed. Primary to continue work up of hypoglycemia 11/18/20: Same recs as 11/1711/17/20: I have no further ideas in work up in regards to persistent hypoglycemia, despite continuous infusion of D10. All of her markers are elevated that would suggest insulinoma but unable to prove this with imaging. Patient needs transfer to a tertiary care center with Endocrinology available for consultation. Pulm status stable. Will see PRN. 11/16/20: STeroids have not helped so will stop today. Obtain CT scan as instructed to order by Radiology. If tumor present will need transfer to tertiary care center with inpatient endocrinology. Prognosis remains guarded. 11/15/20: Will go to radiology tomorrow morning. Will likely stop stress dose steroids tomorrow as no real improvement in sugars. COntinue Trach collar. Needs rehab. ProInsulin is back at 38.2 11/14/20: Will speak with radiology again on Monday to ask them to help me with the ordering of the scan. Continue stress dose steroids at least through tomorrow. No real change in blood sugars as of yet. 11/13/20: Attempt a trial of stress dose steroids to see if this improves sugar levels. I have called CT 3x but no answer. Will go down there and see if they are able to do a CT of the abdomen with pancreas protocol to observe for insulinoma. Continue supportive care and airway maintenance therapy. 11/12/20: Continue D10. I have reached out to an endocrine physician from an outside hospital who is willing to help me with the work up and possible help with diagnosis. Subjective Date of service: 11/22/20 Principal diagnosis: Eclampsia/HELLP Syndrome, ADOLPH, DIC; s/p , s/p supracervical hyst Interval history: Patient remains on trach with a T-piece much more calm today. Otherwise no new symptoms. Objective Vital Signs - 12hr 11/22/20 11/22/20 11/22/20 01:00 02:00 03:00 Temperature Pulse Rate 94 H 99 H 88 Pulse Rate [ From Monitor] Respiratory 13 25 H 22 Rate Blood Pressure 108/76 104/71 124/86 O2 Sat by Pulse 98 97 98 Oximetry O2 Sat by Pulse Oximetry [ Assessment] 11/22/20 11/22/20 11/22/20 04:00 05:00 06:00 Temperature 98.6 F Pulse Rate 89 86 94 H Pulse Rate [ From Monitor] Respiratory 21 21 20 Rate Blood Pressure 109/71 105/65 105/65 O2 Sat by Pulse 98 96 97 Oximetry O2 Sat by Pulse Oximetry [ Assessment] 11/22/20 11/22/20 11/22/20 06:04 07:00 07:43 Temperature Pulse Rate 106 H Pulse Rate [ From Monitor] Respiratory 26 H Rate Blood Pressure 105/65 113/63 O2 Sat by Pulse 98 98 Oximetry O2 Sat by Pulse Oximetry [ Assessment] 11/22/20 11/22/20 11/22/20 07:44 08:00 09:33 Temperature 98.1 F Pulse Rate 93 H 61 Pulse Rate [ 93 H From Monitor] Respiratory 22 Rate Blood Pressure 112/75 120/70 O2 Sat by Pulse 97 Oximetry O2 Sat by Pulse 98 Oximetry [ Assessment] 11/22/20 12:00 Temperature 98.9 F Pulse Rate Pulse Rate [ From Monitor] Respiratory Rate Blood Pressure O2 Sat by Pulse Oximetry O2 Sat by Pulse Oximetry [ Assessment] Constitutional: comatose, other (s/p trach) Eyes: non-icteric ENT: oropharynx moist Neck: other (large in cirumference) Effort: normal Ascultation: Bilateral: clear, diminished breath sounds, rhonchi, other (coarse BS bilaterally) Percussion: Bilateral: not dull Cardiovascular: regular rate and rhythm, other (no mrg) Gastrointestinal: normoactive bowel sounds, soft Extremities: no cyanosis, pink and warm Neurologic: other (unresponsive, not following commands, not tracking) Psychiatric: other (unable to assess) CBC and BMP: 11/19/20 05:23 11/13/20 10:05 ABG, PT/INR, D-dimer: ABG ABG pH 7.459 pH Units (7.350-7.450) H 10/26/20 10:30 POC ABG pCO2 20.7 mmHg (32.0-48.0) L 10/13/20 07:18 ABG pCO2 32.4 mm Hg 10/26/20 10:30 POC ABG pO2 137.9 mmHg (83-108) H 10/13/20 07:18 ABG pO2 112.2 mm Hg (80.0-90.0) H 10/26/20 10:30 POC ABG HCO3 14.8 10/13/20 07:18 ABG O2 Saturation 98.2 % (95.0-99.0) 10/26/20 10:30 PT/INR, D-dimer PT 13.6 Sec. (12.2-14.9) 10/21/20 13:54 INR 1.06 (0.87-1.13) 10/21/20 13:54 D-Dimer 1974.47 ng/mlDDU (0-234) H 11/11/20 13:50 Abnormal lab findings: Abnormal Labs 10/02/20 10/02/20 10/02/20 12:03 12:18 12:18 WBC 14.9 H RBC Hgb 9.1 L Hct MCV MCH 22 L MCHC 28 L RDW 17.6 H Plt Count 102 L Lymph % (Auto) [place] % (Auto) Lymph # (Auto) [place] # (Auto) Baso # (Auto) Seg Neutrophils % Seg Neuts % (Manual) 36.0 L Lymphocytes % (Manual) 49.0 H Monocytes % (Manual) Nucleated RBC % 6.0 H Seg Neutrophils # Seg Neutrophils # Man Lymphocytes # (Manual) 7.3 H Monocytes # (Manual) PT INR APTT Fibrinogen D-Dimer ABG pH POC ABG pCO2 POC ABG pO2 ABG pO2 ABG HCO3 ABG Base Excess ABG Hemoglobin ABG Oxyhemoglobin ABG Sodium ABG Potassium ABG Chloride ABG Glucose VBG pH Oxyhemoglobin Carboxyhemoglobin Sodium 134 L Potassium Chloride Carbon Dioxide 12 L BUN 6 L Creatinine Glucose 390 H POC Glucose 451 H Random Insulin C-Peptide Lactic Acid Calcium Ionized Calcium Phosphorus Magnesium AST 135 H ALT 85 H Alkaline Phosphatase 172 H Lactate Dehydrogenase 641 H NT-Pro-B Natriuret Pep Total Protein 5.4 L Albumin 2.3 L Arterial Blood Glucose Arterial Blood Ionized Calcium Urine WBC (Auto) Vancomycin Trough Phenytoin Crossmatch 10/02/20 10/02/20 10/02/20 12:50 13:05 13:05 WBC 38.6 H RBC Hgb 8.9 L Hct 29.0 L MCV 73 L MCH 22 L MCHC RDW 17.2 H Plt Count Lymph % (Auto) [place] % (Auto) Lymph # (Auto) [place] # (Auto) Baso # (Auto) Seg Neutrophils % Seg Neuts % (Manual) Lymphocytes % (Manual) Monocytes % (Manual) Nucleated RBC % 2.0 H Seg Neutrophils # Seg Neutrophils # Man 20.1 H Lymphocytes # (Manual) 10.4 H Monocytes # (Manual) 2.3 H PT INR APTT Fibrinogen D-Dimer ABG pH POC ABG pCO2 POC ABG pO2 ABG pO2 ABG HCO3 ABG Base Excess ABG Hemoglobin ABG Oxyhemoglobin ABG Sodium ABG Potassium ABG Chloride ABG Glucose VBG pH Oxyhemoglobin Carboxyhemoglobin Sodium Potassium Chloride Carbon Dioxide BUN Creatinine Glucose POC Glucose Random Insulin C-Peptide Lactic Acid Calcium Ionized Calcium Phosphorus Magnesium AST 184 H ALT 113 H Alkaline Phosphatase Lactate Dehydrogenase 769 H NT-Pro-B Natriuret Pep Total Protein Albumin Arterial Blood Glucose Arterial Blood Ionized Calcium Urine WBC (Auto) Vancomycin Trough Phenytoin Crossmatch See Detail 10/02/20 10/02/20 10/02/20 16:25 16:35 16:35 WBC RBC Hgb Hct MCV MCH MCHC RDW Plt Count Lymph % (Auto) [place] % (Auto) Lymph # (Auto) [place] # (Auto) Baso # (Auto) Seg Neutrophils % Seg Neuts % (Manual) Lymphocytes % (Manual) Monocytes % (Manual) Nucleated RBC % Seg Neutrophils # Seg Neutrophils # Man Lymphocytes # (Manual) Monocytes # (Manual) PT INR APTT Fibrinogen D-Dimer ABG pH 7.031 L* POC ABG pCO2 POC ABG pO2 ABG pO2 116.8 H ABG HCO3 12.7 L ABG Base Excess -16.9 L ABG Hemoglobin 7.8 L ABG Oxyhemoglobin ABG Sodium ABG Potassium ABG Chloride ABG Glucose VBG pH Oxyhemoglobin 94.9 L Carboxyhemoglobin Sodium Potassium Chloride Carbon Dioxide BUN Creatinine Glucose 403 H POC Glucose Random Insulin C-Peptide Lactic Acid 11.40 H* Calcium 6.3 L D Ionized Calcium Phosphorus Magnesium AST 70 H ALT Alkaline Phosphatase Lactate Dehydrogenase NT-Pro-B Natriuret Pep Total Protein 1.9 L D Albumin 1.2 L Arterial Blood Glucose Arterial Blood Ionized Calcium Urine WBC (Auto) Vancomycin Trough Phenytoin Crossmatch 10/02/20 10/02/20 10/02/20 18:18 18:18 22:30 WBC 11.5 H RBC 2.06 L Hgb 5.5 L* D Hct 17.3 L* D MCV MCH 27 L MCHC RDW 19.5 H Plt Count 60 L Lymph % (Auto) [place] % (Auto) Lymph # (Auto) [place] # (Auto) Baso # (Auto) Seg Neutrophils % Seg Neuts % (Manual) Lymphocytes % (Manual) 8.0 L Monocytes % (Manual) 8.0 H Nucleated RBC % 8.0 H Seg Neutrophils # Seg Neutrophils # Man Lymphocytes # (Manual) 0.9 L Monocytes # (Manual) 0.9 H PT 37.1 H INR 3.71 H APTT 135.8 H* Fibrinogen D-Dimer ABG pH 7.067 L* POC ABG pCO2 POC ABG pO2 ABG pO2 183.0 H ABG HCO3 14.1 L ABG Base Excess -15.1 L ABG Hemoglobin 7.7 L ABG Oxyhemoglobin ABG Sodium ABG Potassium ABG Chloride ABG Glucose VBG pH Oxyhemoglobin Carboxyhemoglobin Sodium Potassium Chloride Carbon Dioxide BUN Creatinine Glucose POC Glucose Random Insulin C-Peptide Lactic Acid Calcium Ionized Calcium Phosphorus Magnesium AST ALT Alkaline Phosphatase Lactate Dehydrogenase NT-Pro-B Natriuret Pep Total Protein Albumin Arterial Blood Glucose Arterial Blood Ionized Calcium Urine WBC (Auto) Vancomycin Trough Phenytoin Crossmatch 10/02/20 10/02/20 10/03/20 Unknown Unknown 00:01 WBC RBC Hgb Hct MCV MCH MCHC RDW Plt Count Lymph % (Auto) [place] % (Auto) Lymph # (Auto) [place] # (Auto) Baso # (Auto) Seg Neutrophils % Seg Neuts % (Manual) Lymphocytes % (Manual) Monocytes % (Manual) Nucleated RBC % Seg Neutrophils # Seg Neutrophils # Man Lymphocytes # (Manual) Monocytes # (Manual) PT 61.1 H INR 6.92 H* APTT 158.7 H* Fibrinogen < 60 L* D-Dimer > 37420 H ABG pH POC ABG pCO2 POC ABG pO2 ABG pO2 ABG HCO3 ABG Base Excess ABG Hemoglobin ABG Oxyhemoglobin ABG Sodium ABG Potassium ABG Chloride ABG Glucose VBG pH 6.949 L* Oxyhemoglobin Carboxyhemoglobin Sodium Potassium Chloride Carbon Dioxide BUN Creatinine Glucose POC Glucose 196 H Random Insulin C-Peptide Lactic Acid Calcium Ionized Calcium Phosphorus Magnesium AST ALT Alkaline Phosphatase Lactate Dehydrogenase NT-Pro-B Natriuret Pep Total Protein Albumin Arterial Blood Glucose Arterial Blood Ionized Calcium Urine WBC (Auto) Vancomycin Trough Phenytoin Crossmatch 10/03/20 10/03/20 10/03/20 00:40 00:40 00:40 WBC RBC Hgb Hct MCV MCH MCHC RDW Plt Count Lymph % (Auto) [place] % (Auto) Lymph # (Auto) [place] # (Auto) Baso # (Auto) Seg Neutrophils % Seg Neuts % (Manual) Lymphocytes % (Manual) Monocytes % (Manual) Nucleated RBC % Seg Neutrophils # Seg Neutrophils # Man Lymphocytes # (Manual) Monocytes # (Manual) PT 15.1 H INR 1.21 H APTT Fibrinogen D-Dimer ABG pH POC ABG pCO2 POC ABG pO2 ABG pO2 ABG HCO3 ABG Base Excess ABG Hemoglobin ABG Oxyhemoglobin ABG Sodium ABG Potassium ABG Chloride ABG Glucose VBG pH Oxyhemoglobin Carboxyhemoglobin Sodium 136 L Potassium Chloride Carbon Dioxide BUN Creatinine 1.6 H D Glucose 106 H POC Glucose Random Insulin C-Peptide Lactic Acid 5.60 H* Calcium 6.5 L Ionized Calcium Phosphorus Magnesium AST 232 H ALT 104 H Alkaline Phosphatase Lactate Dehydrogenase NT-Pro-B Natriuret Pep Total Protein 3.9 L D Albumin 2.4 L Arterial Blood Glucose Arterial Blood Ionized Calcium Urine WBC (Auto) Vancomycin Trough Phenytoin Crossmatch 10/03/20 10/03/20 10/03/20 02:08 02:08 02:08 WBC 17.6 H RBC 3.27 L Hgb 9.9 L D Hct 29.9 L D MCV MCH MCHC RDW 16.5 H Plt Count 75 L Lymph % (Auto) [place] % (Auto) Lymph # (Auto) [place] # (Auto) Baso # (Auto) Seg Neutrophils % Seg Neuts % (Manual) 76.0 H Lymphocytes % (Manual) Monocytes % (Manual) Nucleated RBC % 8.0 H Seg Neutrophils # Seg Neutrophils # Man 13.4 H Lymphocytes # (Manual) Monocytes # (Manual) PT INR APTT Fibrinogen D-Dimer ABG pH POC ABG pCO2 POC ABG pO2 ABG pO2 ABG HCO3 ABG Base Excess ABG Hemoglobin ABG Oxyhemoglobin ABG Sodium ABG Potassium ABG Chloride ABG Glucose VBG pH Oxyhemoglobin Carboxyhemoglobin Sodium Potassium Chloride Carbon Dioxide 19 L BUN Creatinine 1.4 H Glucose 306 H POC Glucose Random Insulin C-Peptide Lactic Acid 10.50 H* Calcium 6.4 L Ionized Calcium Phosphorus Magnesium AST ALT Alkaline Phosphatase Lactate Dehydrogenase NT-Pro-B Natriuret Pep Total Protein Albumin Arterial Blood Glucose Arterial Blood Ionized Calcium Urine WBC (Auto) Vancomycin Trough Phenytoin Crossmatch 10/03/20 10/03/20 10/03/20 02:42 03:59 05:31 WBC RBC Hgb Hct MCV MCH MCHC RDW Plt Count Lymph % (Auto) [place] % (Auto) Lymph # (Auto) [place] # (Auto) Baso # (Auto) Seg Neutrophils % Seg Neuts % (Manual) Lymphocytes % (Manual) Monocytes % (Manual) Nucleated RBC % Seg Neutrophils # Seg Neutrophils # Man Lymphocytes # (Manual) Monocytes # (Manual) PT INR APTT Fibrinogen D-Dimer ABG pH 7.144 L POC ABG pCO2 54.4 H POC ABG pO2 ABG pO2 ABG HCO3 ABG Base Excess ABG Hemoglobin 10.0 L ABG Oxyhemoglobin ABG Sodium ABG Potassium ABG Chloride 108.0 H ABG Glucose 306 H VBG pH Oxyhemoglobin Carboxyhemoglobin Sodium Potassium Chloride Carbon Dioxide BUN Creatinine Glucose POC Glucose 209 H Random Insulin C-Peptide Lactic Acid 9.20 H* Calcium Ionized Calcium Phosphorus Magnesium AST ALT Alkaline Phosphatase Lactate Dehydrogenase NT-Pro-B Natriuret Pep Total Protein Albumin Arterial Blood Glucose 306 H Arterial Blood Ionized Calcium 3.7 L Urine WBC (Auto) Vancomycin Trough Phenytoin Crossmatch 10/03/20 10/03/20 10/03/20 09:00 09:00 09:00 WBC 27.4 H RBC 2.84 L Hgb 8.5 L Hct 25.1 L MCV MCH MCHC RDW 16.1 H Plt Count 72 L Lymph % (Auto) [place] % (Auto) Lymph # (Auto) [place] # (Auto) Baso # (Auto) Seg Neutrophils % Seg Neuts % (Manual) Lymphocytes % (Manual) 11.0 L Monocytes % (Manual) Nucleated RBC % 3.0 H Seg Neutrophils # Seg Neutrophils # Man 18.4 H Lymphocytes # (Manual) Monocytes # (Manual) 1.9 H PT INR APTT Fibrinogen D-Dimer ABG pH POC ABG pCO2 POC ABG pO2 ABG pO2 ABG HCO3 ABG Base Excess ABG Hemoglobin ABG Oxyhemoglobin ABG Sodium ABG Potassium ABG Chloride ABG Glucose VBG pH Oxyhemoglobin Carboxyhemoglobin Sodium Potassium Chloride Carbon Dioxide BUN Creatinine 1.7 H Glucose 216 H POC Glucose Random Insulin C-Peptide Lactic Acid 9.20 H* Calcium 6.3 L Ionized Calcium Phosphorus Magnesium AST 331 H ALT 171 H Alkaline Phosphatase Lactate Dehydrogenase NT-Pro-B Natriuret Pep Total Protein 3.7 L Albumin 1.9 L Arterial Blood Glucose Arterial Blood Ionized Calcium Urine WBC (Auto) Vancomycin Trough Phenytoin Crossmatch 10/03/20 10/03/20 10/03/20 11:20 11:46 11:50 WBC 28.7 H RBC 2.67 L Hgb 8.0 L Hct 23.7 L MCV MCH MCHC RDW 16.6 H Plt Count 76 L Lymph % (Auto) [place] % (Auto) Lymph # (Auto) [place] # (Auto) Baso # (Auto) Seg Neutrophils % Seg Neuts % (Manual) Lymphocytes % (Manual) Monocytes % (Manual) Nucleated RBC % Seg Neutrophils # Seg Neutrophils # Man Lymphocytes # (Manual) Monocytes # (Manual) PT INR APTT Fibrinogen D-Dimer ABG pH POC ABG pCO2 POC ABG pO2 ABG pO2 ABG HCO3 ABG Base Excess ABG Hemoglobin ABG Oxyhemoglobin ABG Sodium ABG Potassium ABG Chloride ABG Glucose VBG pH Oxyhemoglobin Carboxyhemoglobin Sodium Potassium Chloride Carbon Dioxide BUN Creatinine Glucose POC Glucose 125 H Random Insulin C-Peptide Lactic Acid 8.00 H* Calcium Ionized Calcium Phosphorus Magnesium AST ALT Alkaline Phosphatase Lactate Dehydrogenase NT-Pro-B Natriuret Pep Total Protein Albumin Arterial Blood Glucose Arterial Blood Ionized Calcium Urine WBC (Auto) Vancomycin Trough Phenytoin Crossmatch 10/03/20 10/04/20 10/04/20 11:50 00:40 00:40 WBC RBC Hgb 6.8 L Hct 19.4 L* MCV MCH MCHC RDW Plt Count 49 L Lymph % (Auto) [place] % (Auto) Lymph # (Auto) [place] # (Auto) Baso # (Auto) Seg Neutrophils % Seg Neuts % (Manual) Lymphocytes % (Manual) Monocytes % (Manual) Nucleated RBC % Seg Neutrophils # Seg Neutrophils # Man Lymphocytes # (Manual) Monocytes # (Manual) PT INR APTT Fibrinogen D-Dimer ABG pH 7.244 L POC ABG pCO2 POC ABG pO2 ABG pO2 ABG HCO3 ABG Base Excess -4.5 L ABG Hemoglobin 7.3 L ABG Oxyhemoglobin ABG Sodium ABG Potassium ABG Chloride ABG Glucose VBG pH Oxyhemoglobin Carboxyhemoglobin Sodium Potassium Chloride Carbon Dioxide BUN Creatinine Glucose POC Glucose Random Insulin C-Peptide Lactic Acid Calcium Ionized Calcium Phosphorus Magnesium AST ALT Alkaline Phosphatase Lactate Dehydrogenase NT-Pro-B Natriuret Pep Total Protein Albumin Arterial Blood Glucose Arterial Blood Ionized Calcium Urine WBC (Auto) Vancomycin Trough Phenytoin Crossmatch 10/04/20 10/04/20 10/04/20 03:53 10:00 10:00 WBC 14.6 H RBC 2.57 L Hgb 7.6 L Hct 22.5 L MCV MCH MCHC RDW 15.8 H Plt Count 38 L Lymph % (Auto) 7.7 L [place] % (Auto) Lymph # (Auto) 1.1 L [place] # (Auto) 0.9 H Baso # (Auto) Seg Neutrophils % 85.6 H Seg Neuts % (Manual) Lymphocytes % (Manual) Monocytes % (Manual) Nucleated RBC % Seg Neutrophils # 12.5 H Seg Neutrophils # Man Lymphocytes # (Manual) Monocytes # (Manual) PT INR APTT Fibrinogen D-Dimer ABG pH POC ABG pCO2 POC ABG pO2 110.6 H ABG pO2 ABG HCO3 ABG Base Excess ABG Hemoglobin 6.7 L ABG Oxyhemoglobin ABG Sodium 132.0 L ABG Potassium ABG Chloride ABG Glucose 111 H VBG pH Oxyhemoglobin Carboxyhemoglobin Sodium 134 L D Potassium Chloride 97.6 L Carbon Dioxide BUN Creatinine 1.7 H Glucose POC Glucose Random Insulin C-Peptide Lactic Acid Calcium 6.3 L Ionized Calcium Phosphorus Magnesium AST 203 H ALT 81 H Alkaline Phosphatase Lactate Dehydrogenase NT-Pro-B Natriuret Pep Total Protein 3.9 L Albumin 2.3 L Arterial Blood Glucose 111 H Arterial Blood Ionized Calcium 3.5 L Urine WBC (Auto) Vancomycin Trough Phenytoin Crossmatch 10/04/20 10/04/20 10/04/20 10:00 10:00 10:14 WBC RBC Hgb Hct MCV MCH MCHC RDW Plt Count Lymph % (Auto) [place] % (Auto) Lymph # (Auto) [place] # (Auto) Baso # (Auto) Seg Neutrophils % Seg Neuts % (Manual) Lymphocytes % (Manual) Monocytes % (Manual) Nucleated RBC % Seg Neutrophils # Seg Neutrophils # Man Lymphocytes # (Manual) Monocytes # (Manual) PT INR APTT Fibrinogen D-Dimer > 29469 H ABG pH POC ABG pCO2 POC ABG pO2 ABG pO2 ABG HCO3 ABG Base Excess ABG Hemoglobin ABG Oxyhemoglobin ABG Sodium ABG Potassium ABG Chloride ABG Glucose VBG pH Oxyhemoglobin Carboxyhemoglobin Sodium Potassium Chloride Carbon Dioxide BUN Creatinine Glucose POC Glucose Random Insulin C-Peptide Lactic Acid 3.90 H* Calcium Ionized Calcium Phosphorus Magnesium AST ALT Alkaline Phosphatase Lactate Dehydrogenase NT-Pro-B Natriuret Pep 2788 H Total Protein Albumin Arterial Blood Glucose Arterial Blood Ionized Calcium Urine WBC (Auto) Vancomycin Trough Phenytoin Crossmatch 10/04/20 10/04/20 10/04/20 14:00 14:00 18:00 WBC 15.7 H RBC 3.17 L Hgb 9.3 L 9.6 L Hct 27.2 L 28.0 L MCV MCH MCHC RDW 16.9 H Plt Count 41 L Lymph % (Auto) 8.6 L [place] % (Auto) Lymph # (Auto) [place] # (Auto) 0.9 H Baso # (Auto) Seg Neutrophils % 85.4 H Seg Neuts % (Manual) Lymphocytes % (Manual) Monocytes % (Manual) Nucleated RBC % Seg Neutrophils # 13.4 H Seg Neutrophils # Man Lymphocytes # (Manual) Monocytes # (Manual) PT INR APTT Fibrinogen D-Dimer ABG pH POC ABG pCO2 POC ABG pO2 ABG pO2 ABG HCO3 ABG Base Excess ABG Hemoglobin ABG Oxyhemoglobin ABG Sodium ABG Potassium ABG Chloride ABG Glucose VBG pH Oxyhemoglobin Carboxyhemoglobin Sodium 133 L Potassium Chloride 96.4 L Carbon Dioxide BUN 18 H Creatinine 1.7 H Glucose POC Glucose Random Insulin C-Peptide Lactic Acid Calcium 6.3 L Ionized Calcium Phosphorus Magnesium AST ALT Alkaline Phosphatase Lactate Dehydrogenase NT-Pro-B Natriuret Pep Total Protein Albumin Arterial Blood Glucose Arterial Blood Ionized Calcium Urine WBC (Auto) Vancomycin Trough Phenytoin Crossmatch 10/04/20 10/04/20 10/05/20 18:00 22:00 05:00 WBC 17.6 H RBC 3.34 L Hgb 9.9 L Hct 29.4 L MCV MCH MCHC RDW 17.1 H Plt Count 56 L Lymph % (Auto) 8.5 L [place] % (Auto) Lymph # (Auto) [place] # (Auto) 1.0 H Baso # (Auto) Seg Neutrophils % 85.1 H Seg Neuts % (Manual) Lymphocytes % (Manual) Monocytes % (Manual) Nucleated RBC % Seg Neutrophils # 15.0 H Seg Neutrophils # Man Lymphocytes # (Manual) Monocytes # (Manual) PT INR APTT Fibrinogen D-Dimer ABG pH POC ABG pCO2 POC ABG pO2 ABG pO2 ABG HCO3 ABG Base Excess ABG Hemoglobin ABG Oxyhemoglobin ABG Sodium ABG Potassium ABG Chloride ABG Glucose VBG pH Oxyhemoglobin Carboxyhemoglobin Sodium 136 L Potassium Chloride Carbon Dioxide BUN 18 H Creatinine 1.7 H Glucose POC Glucose Random Insulin C-Peptide Lactic Acid 2.30 H* Calcium 6.6 L Ionized Calcium Phosphorus Magnesium AST ALT Alkaline Phosphatase Lactate Dehydrogenase NT-Pro-B Natriuret Pep Total Protein Albumin Arterial Blood Glucose Arterial Blood Ionized Calcium Urine WBC (Auto) Vancomycin Trough Phenytoin Crossmatch 10/05/20 10/05/20 10/05/20 05:00 05:00 05:03 WBC RBC Hgb Hct MCV MCH MCHC RDW Plt Count Lymph % (Auto) [place] % (Auto) Lymph # (Auto) [place] # (Auto) Baso # (Auto) Seg Neutrophils % Seg Neuts % (Manual) Lymphocytes % (Manual) Monocytes % (Manual) Nucleated RBC % Seg Neutrophils # Seg Neutrophils # Man Lymphocytes # (Manual) Monocytes # (Manual) PT INR APTT Fibrinogen D-Dimer ABG pH 7.458 H POC ABG pCO2 POC ABG pO2 ABG pO2 74.3 L ABG HCO3 27.5 H ABG Base Excess 3.4 H ABG Hemoglobin 10.0 L ABG Oxyhemoglobin ABG Sodium ABG Potassium ABG Chloride ABG Glucose VBG pH Oxyhemoglobin 94.9 L Carboxyhemoglobin Sodium Potassium Chloride Carbon Dioxide BUN 19 H Creatinine 1.8 H Glucose POC Glucose Random Insulin C-Peptide Lactic Acid Calcium 6.8 L Ionized Calcium 3.9 L Phosphorus Magnesium AST 225 H ALT 85 H Alkaline Phosphatase Lactate Dehydrogenase NT-Pro-B Natriuret Pep Total Protein 4.5 L Albumin 2.7 L Arterial Blood Glucose Arterial Blood Ionized Calcium Urine WBC (Auto) Vancomycin Trough Phenytoin Crossmatch 10/05/20 10/05/20 10/05/20 10:10 15:00 19:40 WBC RBC Hgb Hct MCV MCH MCHC RDW Plt Count Lymph % (Auto) [place] % (Auto) Lymph # (Auto) [place] # (Auto) Baso # (Auto) Seg Neutrophils % Seg Neuts % (Manual) Lymphocytes % (Manual) Monocytes % (Manual) Nucleated RBC % Seg Neutrophils # Seg Neutrophils # Man Lymphocytes # (Manual) Monocytes # (Manual) PT INR APTT Fibrinogen D-Dimer ABG pH POC ABG pCO2 POC ABG pO2 ABG pO2 ABG HCO3 ABG Base Excess ABG Hemoglobin ABG Oxyhemoglobin ABG Sodium ABG Potassium ABG Chloride ABG Glucose VBG pH Oxyhemoglobin Carboxyhemoglobin Sodium Potassium 3.5 L Chloride Carbon Dioxide 31 H 32 H BUN 19 H 19 H Creatinine 1.8 H 1.8 H Glucose POC Glucose Random Insulin C-Peptide Lactic Acid Calcium 7.0 L 7.2 L Ionized Calcium Phosphorus Magnesium 2.90 H AST ALT Alkaline Phosphatase Lactate Dehydrogenase NT-Pro-B Natriuret Pep Total Protein Albumin Arterial Blood Glucose Arterial Blood Ionized Calcium Urine WBC (Auto) Vancomycin Trough Phenytoin Crossmatch 10/06/20 10/06/20 10/06/20 01:05 03:12 04:00 WBC 17.1 H RBC 3.47 L Hgb Hct MCV MCH MCHC RDW 17.4 H Plt Count 82 L Lymph % (Auto) 8.3 L [place] % (Auto) Lymph # (Auto) [place] # (Auto) 1.1 H Baso # (Auto) Seg Neutrophils % 83.8 H Seg Neuts % (Manual) Lymphocytes % (Manual) Monocytes % (Manual) Nucleated RBC % Seg Neutrophils # 14.3 H Seg Neutrophils # Man Lymphocytes # (Manual) Monocytes # (Manual) PT INR APTT Fibrinogen D-Dimer ABG pH 7.474 H POC ABG pCO2 POC ABG pO2 129.5 H ABG pO2 ABG HCO3 ABG Base Excess ABG Hemoglobin 11.4 L ABG Oxyhemoglobin ABG Sodium 131.8 L ABG Potassium ABG Chloride ABG Glucose 103 H VBG pH Oxyhemoglobin Carboxyhemoglobin 0.3 L Sodium Potassium Chloride Carbon Dioxide BUN Creatinine Glucose POC Glucose Random Insulin C-Peptide Lactic Acid Calcium Ionized Calcium Phosphorus Magnesium 3.70 H AST ALT Alkaline Phosphatase Lactate Dehydrogenase NT-Pro-B Natriuret Pep Total Protein Albumin Arterial Blood Glucose 103 H Arterial Blood Ionized Calcium 4.2 L Urine WBC (Auto) Vancomycin Trough Phenytoin Crossmatch 10/06/20 10/06/20 10/06/20 04:00 05:31 08:12 WBC RBC Hgb Hct MCV MCH MCHC RDW Plt Count Lymph % (Auto) [place] % (Auto) Lymph # (Auto) [place] # (Auto) Baso # (Auto) Seg Neutrophils % Seg Neuts % (Manual) Lymphocytes % (Manual) Monocytes % (Manual) Nucleated RBC % Seg Neutrophils # Seg Neutrophils # Man Lymphocytes # (Manual) Monocytes # (Manual) PT INR APTT Fibrinogen D-Dimer ABG pH POC ABG pCO2 POC ABG pO2 ABG pO2 ABG HCO3 ABG Base Excess ABG Hemoglobin ABG Oxyhemoglobin ABG Sodium ABG Potassium ABG Chloride ABG Glucose VBG pH Oxyhemoglobin Carboxyhemoglobin Sodium Potassium 3.5 L Chloride Carbon Dioxide BUN 19 H Creatinine 1.8 H Glucose 102 H POC Glucose 116 H Random Insulin C-Peptide Lactic Acid Calcium 7.2 L Ionized Calcium Phosphorus Magnesium 5.40 H AST 307 H ALT 137 H Alkaline Phosphatase Lactate Dehydrogenase NT-Pro-B Natriuret Pep Total Protein 4.5 L Albumin 2.6 L Arterial Blood Glucose Arterial Blood Ionized Calcium Urine WBC (Auto) Vancomycin Trough Phenytoin Crossmatch 10/06/20 10/06/20 10/06/20 11:00 11:50 20:13 WBC RBC Hgb Hct MCV MCH MCHC RDW Plt Count Lymph % (Auto) [place] % (Auto) Lymph # (Auto) [place] # (Auto) Baso # (Auto) Seg Neutrophils % Seg Neuts % (Manual) Lymphocytes % (Manual) Monocytes % (Manual) Nucleated RBC % Seg Neutrophils # Seg Neutrophils # Man Lymphocytes # (Manual) Monocytes # (Manual) PT INR APTT Fibrinogen D-Dimer ABG pH POC ABG pCO2 POC ABG pO2 ABG pO2 ABG HCO3 ABG Base Excess ABG Hemoglobin ABG Oxyhemoglobin ABG Sodium ABG Potassium ABG Chloride ABG Glucose VBG pH Oxyhemoglobin Carboxyhemoglobin Sodium Potassium Chloride Carbon Dioxide BUN Creatinine Glucose POC Glucose 106 H Random Insulin C-Peptide Lactic Acid Calcium Ionized Calcium Phosphorus Magnesium 6.50 H 6.20 H AST ALT Alkaline Phosphatase Lactate Dehydrogenase NT-Pro-B Natriuret Pep Total Protein Albumin Arterial Blood Glucose Arterial Blood Ionized Calcium Urine WBC (Auto) Vancomycin Trough Phenytoin Crossmatch 10/06/20 10/06/20 10/06/20 20:17 22:29 23:57 WBC RBC Hgb Hct MCV MCH MCHC RDW Plt Count Lymph % (Auto) [place] % (Auto) Lymph # (Auto) [place] # (Auto) Baso # (Auto) Seg Neutrophils % Seg Neuts % (Manual) Lymphocytes % (Manual) Monocytes % (Manual) Nucleated RBC % Seg Neutrophils # Seg Neutrophils # Man Lymphocytes # (Manual) Monocytes # (Manual) PT INR APTT Fibrinogen D-Dimer ABG pH POC ABG pCO2 POC ABG pO2 ABG pO2 ABG HCO3 ABG Base Excess ABG Hemoglobin ABG Oxyhemoglobin ABG Sodium ABG Potassium ABG Chloride ABG Glucose VBG pH Oxyhemoglobin Carboxyhemoglobin Sodium Potassium Chloride Carbon Dioxide BUN Creatinine Glucose POC Glucose 112 H 126 H 133 H Random Insulin C-Peptide Lactic Acid Calcium Ionized Calcium Phosphorus Magnesium AST ALT Alkaline Phosphatase Lactate Dehydrogenase NT-Pro-B Natriuret Pep Total Protein Albumin Arterial Blood Glucose Arterial Blood Ionized Calcium Urine WBC (Auto) Vancomycin Trough Phenytoin Crossmatch 10/07/20 10/07/20 10/07/20 00:35 02:22 03:16 WBC RBC Hgb Hct MCV MCH MCHC RDW Plt Count Lymph % (Auto) [place] % (Auto) Lymph # (Auto) [place] # (Auto) Baso # (Auto) Seg Neutrophils % Seg Neuts % (Manual) Lymphocytes % (Manual) Monocytes % (Manual) Nucleated RBC % Seg Neutrophils # Seg Neutrophils # Man Lymphocytes # (Manual) Monocytes # (Manual) PT INR APTT Fibrinogen D-Dimer ABG pH POC ABG pCO2 POC ABG pO2 ABG pO2 ABG HCO3 ABG Base Excess ABG Hemoglobin 11.6 L ABG Oxyhemoglobin ABG Sodium ABG Potassium ABG Chloride ABG Glucose 156 H VBG pH Oxyhemoglobin Carboxyhemoglobin 0.3 L Sodium Potassium Chloride Carbon Dioxide BUN Creatinine Glucose POC Glucose 124 H Random Insulin C-Peptide Lactic Acid Calcium Ionized Calcium Phosphorus Magnesium 5.90 H AST ALT Alkaline Phosphatase Lactate Dehydrogenase NT-Pro-B Natriuret Pep Total Protein Albumin Arterial Blood Glucose 156 H Arterial Blood Ionized Calcium 4.2 L Urine WBC (Auto) Vancomycin Trough Phenytoin Crossmatch 10/07/20 10/07/20 10/07/20 04:06 05:45 07:05 WBC 19.2 H RBC 3.57 L Hgb Hct MCV MCH MCHC 35 H RDW 17.1 H Plt Count 129 L Lymph % (Auto) [place] % (Auto) Lymph # (Auto) [place] # (Auto) Baso # (Auto) Seg Neutrophils % Seg Neuts % (Manual) 94.0 H Lymphocytes % (Manual) 6.0 L Monocytes % (Manual) Nucleated RBC % Seg Neutrophils # Seg Neutrophils # Man 18.0 H Lymphocytes # (Manual) Monocytes # (Manual) PT INR APTT Fibrinogen D-Dimer ABG pH POC ABG pCO2 POC ABG pO2 ABG pO2 ABG HCO3 ABG Base Excess ABG Hemoglobin ABG Oxyhemoglobin ABG Sodium ABG Potassium ABG Chloride ABG Glucose VBG pH Oxyhemoglobin Carboxyhemoglobin Sodium Potassium Chloride Carbon Dioxide BUN Creatinine Glucose POC Glucose 135 H 149 H Random Insulin C-Peptide Lactic Acid Calcium Ionized Calcium Phosphorus Magnesium AST ALT Alkaline Phosphatase Lactate Dehydrogenase NT-Pro-B Natriuret Pep Total Protein Albumin Arterial Blood Glucose Arterial Blood Ionized Calcium Urine WBC (Auto) Vancomycin Trough Phenytoin Crossmatch 10/07/20 10/07/20 10/07/20 07:05 07:05 12:21 WBC RBC Hgb Hct MCV MCH MCHC RDW Plt Count Lymph % (Auto) [place] % (Auto) Lymph # (Auto) [place] # (Auto) Baso # (Auto) Seg Neutrophils % Seg Neuts % (Manual) Lymphocytes % (Manual) Monocytes % (Manual) Nucleated RBC % Seg Neutrophils # Seg Neutrophils # Man Lymphocytes # (Manual) Monocytes # (Manual) PT INR APTT Fibrinogen D-Dimer ABG pH POC ABG pCO2 POC ABG pO2 ABG pO2 ABG HCO3 ABG Base Excess ABG Hemoglobin ABG Oxyhemoglobin ABG Sodium ABG Potassium ABG Chloride ABG Glucose VBG pH Oxyhemoglobin Carboxyhemoglobin Sodium Potassium Chloride Carbon Dioxide BUN 21 H Creatinine 1.7 H Glucose 171 H POC Glucose 124 H Random Insulin C-Peptide Lactic Acid Calcium 7.4 L Ionized Calcium Phosphorus Magnesium 6.10 H AST 245 H ALT 147 H Alkaline Phosphatase Lactate Dehydrogenase NT-Pro-B Natriuret Pep Total Protein 5.3 L Albumin 2.8 L Arterial Blood Glucose Arterial Blood Ionized Calcium Urine WBC (Auto) Vancomycin Trough Phenytoin Crossmatch 10/07/20 10/07/20 10/07/20 19:52 21:00 21:50 WBC RBC Hgb Hct MCV MCH MCHC RDW Plt Count Lymph % (Auto) [place] % (Auto) Lymph # (Auto) [place] # (Auto) Baso # (Auto) Seg Neutrophils % Seg Neuts % (Manual) Lymphocytes % (Manual) Monocytes % (Manual) Nucleated RBC % Seg Neutrophils # Seg Neutrophils # Man Lymphocytes # (Manual) Monocytes # (Manual) PT INR APTT Fibrinogen D-Dimer ABG pH POC ABG pCO2 POC ABG pO2 ABG pO2 ABG HCO3 ABG Base Excess ABG Hemoglobin ABG Oxyhemoglobin ABG Sodium ABG Potassium ABG Chloride ABG Glucose VBG pH Oxyhemoglobin Carboxyhemoglobin Sodium Potassium Chloride Carbon Dioxide BUN Creatinine Glucose POC Glucose 193 H 138 H Random Insulin C-Peptide Lactic Acid Calcium Ionized Calcium 4.4 L Phosphorus Magnesium AST ALT Alkaline Phosphatase Lactate Dehydrogenase NT-Pro-B Natriuret Pep Total Protein Albumin Arterial Blood Glucose Arterial Blood Ionized Calcium Urine WBC (Auto) Vancomycin Trough Phenytoin Crossmatch 10/07/20 10/08/20 10/08/20 23:41 04:20 05:30 WBC RBC Hgb Hct MCV MCH MCHC RDW Plt Count Lymph % (Auto) [place] % (Auto) Lymph # (Auto) [place] # (Auto) Baso # (Auto) Seg Neutrophils % Seg Neuts % (Manual) Lymphocytes % (Manual) Monocytes % (Manual) Nucleated RBC % Seg Neutrophils # Seg Neutrophils # Man Lymphocytes # (Manual) Monocytes # (Manual) PT INR APTT Fibrinogen D-Dimer ABG pH 7.467 H POC ABG pCO2 POC ABG pO2 189.8 H ABG pO2 ABG HCO3 ABG Base Excess ABG Hemoglobin 10.8 L ABG Oxyhemoglobin ABG Sodium ABG Potassium ABG Chloride ABG Glucose 133 H VBG pH Oxyhemoglobin Carboxyhemoglobin Sodium Potassium Chloride Carbon Dioxide BUN Creatinine Glucose POC Glucose 118 H 114 H Random Insulin C-Peptide Lactic Acid Calcium Ionized Calcium Phosphorus Magnesium AST ALT Alkaline Phosphatase Lactate Dehydrogenase NT-Pro-B Natriuret Pep Total Protein Albumin Arterial Blood Glucose 133 H Arterial Blood Ionized Calcium 4.2 L Urine WBC (Auto) Vancomycin Trough Phenytoin Crossmatch 10/08/20 10/08/20 10/08/20 05:43 06:42 06:42 WBC 23.6 H RBC 3.54 L Hgb Hct MCV MCH MCHC RDW 17.8 H Plt Count Lymph % (Auto) [place] % (Auto) Lymph # (Auto) [place] # (Auto) Baso # (Auto) Seg Neutrophils % Seg Neuts % (Manual) 93.0 H Lymphocytes % (Manual) 3.0 L Monocytes % (Manual) Nucleated RBC % 1.0 H Seg Neutrophils # Seg Neutrophils # Man 21.9 H Lymphocytes # (Manual) 0.7 L Monocytes # (Manual) 0.9 H PT INR APTT Fibrinogen D-Dimer ABG pH POC ABG pCO2 POC ABG pO2 ABG pO2 ABG HCO3 ABG Base Excess ABG Hemoglobin ABG Oxyhemoglobin ABG Sodium ABG Potassium ABG Chloride ABG Glucose VBG pH Oxyhemoglobin Carboxyhemoglobin Sodium Potassium Chloride Carbon Dioxide BUN 28 H Creatinine 1.6 H Glucose 141 H POC Glucose 126 H Random Insulin C-Peptide Lactic Acid Calcium 7.6 L Ionized Calcium Phosphorus Magnesium AST 162 H ALT 103 H Alkaline Phosphatase Lactate Dehydrogenase NT-Pro-B Natriuret Pep Total Protein 5.4 L Albumin 2.7 L Arterial Blood Glucose Arterial Blood Ionized Calcium Urine WBC (Auto) Vancomycin Trough Phenytoin Crossmatch 10/08/20 10/08/20 10/08/20 11:20 16:05 20:14 WBC RBC Hgb Hct MCV MCH MCHC RDW Plt Count Lymph % (Auto) [place] % (Auto) Lymph # (Auto) [place] # (Auto) Baso # (Auto) Seg Neutrophils % Seg Neuts % (Manual) Lymphocytes % (Manual) Monocytes % (Manual) Nucleated RBC % Seg Neutrophils # Seg Neutrophils # Man Lymphocytes # (Manual) Monocytes # (Manual) PT INR APTT Fibrinogen D-Dimer ABG pH POC ABG pCO2 POC ABG pO2 ABG pO2 ABG HCO3 ABG Base Excess ABG Hemoglobin ABG Oxyhemoglobin ABG Sodium ABG Potassium ABG Chloride ABG Glucose VBG pH Oxyhemoglobin Carboxyhemoglobin Sodium Potassium Chloride Carbon Dioxide BUN Creatinine Glucose POC Glucose 127 H 172 H 147 H Random Insulin C-Peptide Lactic Acid Calcium Ionized Calcium Phosphorus Magnesium AST ALT Alkaline Phosphatase Lactate Dehydrogenase NT-Pro-B Natriuret Pep Total Protein Albumin Arterial Blood Glucose Arterial Blood Ionized Calcium Urine WBC (Auto) Vancomycin Trough Phenytoin Crossmatch 10/08/20 10/08/20 10/09/20 21:27 23:24 02:10 WBC RBC Hgb Hct MCV MCH MCHC RDW Plt Count Lymph % (Auto) [place] % (Auto) Lymph # (Auto) [place] # (Auto) Baso # (Auto) Seg Neutrophils % Seg Neuts % (Manual) Lymphocytes % (Manual) Monocytes % (Manual) Nucleated RBC % Seg Neutrophils # Seg Neutrophils # Man Lymphocytes # (Manual) Monocytes # (Manual) PT INR APTT Fibrinogen D-Dimer ABG pH POC ABG pCO2 POC ABG pO2 ABG pO2 ABG HCO3 ABG Base Excess ABG Hemoglobin ABG Oxyhemoglobin ABG Sodium ABG Potassium ABG Chloride ABG Glucose VBG pH Oxyhemoglobin Carboxyhemoglobin Sodium Potassium Chloride Carbon Dioxide BUN Creatinine Glucose POC Glucose 140 H 135 H 111 H Random Insulin C-Peptide Lactic Acid Calcium Ionized Calcium Phosphorus Magnesium AST ALT Alkaline Phosphatase Lactate Dehydrogenase NT-Pro-B Natriuret Pep Total Protein Albumin Arterial Blood Glucose Arterial Blood Ionized Calcium Urine WBC (Auto) Vancomycin Trough Phenytoin Crossmatch 10/09/20 10/09/20 10/09/20 03:44 04:39 05:46 WBC 19.7 H RBC 3.51 L Hgb Hct MCV MCH MCHC RDW 17.7 H Plt Count Lymph % (Auto) [place] % (Auto) Lymph # (Auto) [place] # (Auto) Baso # (Auto) Seg Neutrophils % Seg Neuts % (Manual) 86.0 H Lymphocytes % (Manual) 4.0 L Monocytes % (Manual) 9.0 H Nucleated RBC % Seg Neutrophils # Seg Neutrophils # Man 16.9 H Lymphocytes # (Manual) 0.8 L Monocytes # (Manual) 1.8 H PT INR APTT Fibrinogen D-Dimer ABG pH 7.513 H POC ABG pCO2 POC ABG pO2 33.6 L ABG pO2 ABG HCO3 ABG Base Excess ABG Hemoglobin 11.1 L ABG Oxyhemoglobin 70.2 L ABG Sodium ABG Potassium 3.2 L ABG Chloride 108.0 H ABG Glucose 108 H VBG pH Oxyhemoglobin Carboxyhemoglobin Sodium Potassium Chloride Carbon Dioxide BUN Creatinine Glucose POC Glucose 109 H Random Insulin C-Peptide Lactic Acid Calcium Ionized Calcium Phosphorus Magnesium AST ALT Alkaline Phosphatase Lactate Dehydrogenase NT-Pro-B Natriuret Pep Total Protein Albumin Arterial Blood Glucose 108 H Arterial Blood Ionized Calcium 4.3 L Urine WBC (Auto) Vancomycin Trough Phenytoin Crossmatch 10/09/20 10/10/20 10/10/20 05:46 04:00 04:00 WBC 18.4 H RBC Hgb Hct MCV MCH MCHC RDW 17.5 H Plt Count Lymph % (Auto) 9.8 L [place] % (Auto) 8.8 H Lymph # (Auto) [place] # (Auto) 1.6 H Baso # (Auto) Seg Neutrophils % 80.0 H Seg Neuts % (Manual) Lymphocytes % (Manual) Monocytes % (Manual) Nucleated RBC % Seg Neutrophils # 14.7 H Seg Neutrophils # Man Lymphocytes # (Manual) Monocytes # (Manual) PT INR APTT Fibrinogen D-Dimer ABG pH POC ABG pCO2 POC ABG pO2 ABG pO2 ABG HCO3 ABG Base Excess ABG Hemoglobin ABG Oxyhemoglobin ABG Sodium ABG Potassium ABG Chloride ABG Glucose VBG pH Oxyhemoglobin Carboxyhemoglobin Sodium 146 H Potassium 3.2 L 2.9 L* Chloride 108.9 H 112.6 H Carbon Dioxide BUN 34 H 28 H Creatinine 1.4 H 1.3 H Glucose 109 H 101 H POC Glucose Random Insulin C-Peptide Lactic Acid Calcium 7.6 L 7.8 L Ionized Calcium Phosphorus Magnesium AST 137 H 122 H ALT 99 H 81 H Alkaline Phosphatase Lactate Dehydrogenase NT-Pro-B Natriuret Pep Total Protein 5.1 L 5.2 L Albumin 2.6 L 2.7 L Arterial Blood Glucose Arterial Blood Ionized Calcium Urine WBC (Auto) Vancomycin Trough Phenytoin Crossmatch 10/10/20 10/10/20 10/11/20 04:42 09:50 00:44 WBC RBC Hgb Hct MCV MCH MCHC RDW Plt Count Lymph % (Auto) [place] % (Auto) Lymph # (Auto) [place] # (Auto) Baso # (Auto) Seg Neutrophils % Seg Neuts % (Manual) Lymphocytes % (Manual) Monocytes % (Manual) Nucleated RBC % Seg Neutrophils # Seg Neutrophils # Man Lymphocytes # (Manual) Monocytes # (Manual) PT INR APTT Fibrinogen D-Dimer ABG pH 7.534 H POC ABG pCO2 POC ABG pO2 ABG pO2 95.2 H ABG HCO3 ABG Base Excess ABG Hemoglobin 11.3 L ABG Oxyhemoglobin ABG Sodium ABG Potassium ABG Chloride ABG Glucose VBG pH Oxyhemoglobin Carboxyhemoglobin Sodium Potassium Chloride Carbon Dioxide BUN Creatinine Glucose POC Glucose 109 H 106 H Random Insulin C-Peptide Lactic Acid Calcium Ionized Calcium Phosphorus Magnesium AST ALT Alkaline Phosphatase Lactate Dehydrogenase NT-Pro-B Natriuret Pep Total Protein Albumin Arterial Blood Glucose Arterial Blood Ionized Calcium Urine WBC (Auto) Vancomycin Trough Phenytoin Crossmatch 10/11/20 10/11/20 10/11/20 04:00 04:00 06:08 WBC 27.0 H RBC Hgb Hct MCV MCH MCHC RDW 17.7 H Plt Count Lymph % (Auto) 6.3 L [place] % (Auto) Lymph # (Auto) [place] # (Auto) 1.5 H Baso # (Auto) Seg Neutrophils % 87.1 H Seg Neuts % (Manual) Lymphocytes % (Manual) Monocytes % (Manual) Nucleated RBC % Seg Neutrophils # 23.5 H Seg Neutrophils # Man Lymphocytes # (Manual) Monocytes # (Manual) PT INR APTT Fibrinogen D-Dimer ABG pH POC ABG pCO2 POC ABG pO2 ABG pO2 ABG HCO3 ABG Base Excess ABG Hemoglobin ABG Oxyhemoglobin ABG Sodium ABG Potassium ABG Chloride ABG Glucose VBG pH Oxyhemoglobin Carboxyhemoglobin Sodium Potassium 3.2 L Chloride 110.4 H Carbon Dioxide 19 L BUN 22 H Creatinine Glucose 116 H POC Glucose 107 H Random Insulin C-Peptide Lactic Acid Calcium 7.7 L Ionized Calcium Phosphorus Magnesium 1.60 L AST ALT Alkaline Phosphatase Lactate Dehydrogenase NT-Pro-B Natriuret Pep Total Protein Albumin Arterial Blood Glucose Arterial Blood Ionized Calcium Urine WBC (Auto) Vancomycin Trough Phenytoin Crossmatch 10/11/20 10/11/20 10/12/20 11:41 13:26 03:52 WBC RBC Hgb Hct MCV MCH MCHC RDW Plt Count Lymph % (Auto) [place] % (Auto) Lymph # (Auto) [place] # (Auto) Baso # (Auto) Seg Neutrophils % Seg Neuts % (Manual) Lymphocytes % (Manual) Monocytes % (Manual) Nucleated RBC % Seg Neutrophils # Seg Neutrophils # Man Lymphocytes # (Manual) Monocytes # (Manual) PT INR APTT Fibrinogen D-Dimer ABG pH POC ABG pCO2 POC ABG pO2 ABG pO2 ABG HCO3 ABG Base Excess ABG Hemoglobin ABG Oxyhemoglobin ABG Sodium ABG Potassium ABG Chloride ABG Glucose VBG pH Oxyhemoglobin Carboxyhemoglobin Sodium Potassium Chloride Carbon Dioxide BUN Creatinine Glucose POC Glucose 116 H 114 H Random Insulin C-Peptide Lactic Acid Calcium Ionized Calcium Phosphorus Magnesium AST ALT Alkaline Phosphatase Lactate Dehydrogenase NT-Pro-B Natriuret Pep Total Protein Albumin Arterial Blood Glucose Arterial Blood Ionized Calcium Urine WBC (Auto) 24.0 H Vancomycin Trough Phenytoin Crossmatch 10/12/20 10/12/20 10/12/20 04:24 14:47 21:33 WBC RBC Hgb Hct MCV MCH MCHC RDW Plt Count Lymph % (Auto) [place] % (Auto) Lymph # (Auto) [place] # (Auto) Baso # (Auto) Seg Neutrophils % Seg Neuts % (Manual) Lymphocytes % (Manual) Monocytes % (Manual) Nucleated RBC % Seg Neutrophils # Seg Neutrophils # Man Lymphocytes # (Manual) Monocytes # (Manual) PT INR APTT Fibrinogen D-Dimer ABG pH POC ABG pCO2 POC ABG pO2 ABG pO2 ABG HCO3 ABG Base Excess ABG Hemoglobin ABG Oxyhemoglobin ABG Sodium ABG Potassium ABG Chloride ABG Glucose VBG pH Oxyhemoglobin Carboxyhemoglobin Sodium Potassium Chloride 109.9 H Carbon Dioxide 13 L BUN 18 H Creatinine Glucose 119 H POC Glucose 107 H Random Insulin C-Peptide Lactic Acid Calcium 7.6 L Ionized Calcium Phosphorus Magnesium 1.60 L AST ALT Alkaline Phosphatase Lactate Dehydrogenase NT-Pro-B Natriuret Pep Total Protein Albumin Arterial Blood Glucose Arterial Blood Ionized Calcium Urine WBC (Auto) Vancomycin Trough Phenytoin Crossmatch 10/12/20 10/12/20 10/13/20 Unknown Unknown 07:00 WBC 24.3 H RBC 3.38 L Hgb 9.8 L Hct MCV MCH MCHC RDW 18.7 H Plt Count Lymph % (Auto) [place] % (Auto) Lymph # (Auto) [place] # (Auto) Baso # (Auto) Seg Neutrophils % Seg Neuts % (Manual) 93.5 H Lymphocytes % (Manual) 4.5 L Monocytes % (Manual) Nucleated RBC % Seg Neutrophils # Seg Neutrophils # Man 22.7 H Lymphocytes # (Manual) 1.1 L Monocytes # (Manual) PT INR APTT Fibrinogen D-Dimer ABG pH POC ABG pCO2 POC ABG pO2 ABG pO2 ABG HCO3 ABG Base Excess ABG Hemoglobin ABG Oxyhemoglobin ABG Sodium ABG Potassium ABG Chloride ABG Glucose VBG pH Oxyhemoglobin Carboxyhemoglobin Sodium 135 L D Potassium 3.1 L Chloride Carbon Dioxide 17 L BUN Creatinine Glucose 510 H* POC Glucose Random Insulin C-Peptide Lactic Acid Calcium 7.2 L Ionized Calcium Phosphorus Magnesium AST ALT Alkaline Phosphatase Lactate Dehydrogenase NT-Pro-B Natriuret Pep Total Protein Albumin Arterial Blood Glucose Arterial Blood Ionized Calcium Urine WBC (Auto) Vancomycin Trough Phenytoin 5.7 L Crossmatch 10/13/20 10/13/20 10/13/20 07:00 07:00 07:18 WBC 23.6 H RBC 3.26 L Hgb 9.4 L Hct 28.7 L MCV MCH MCHC RDW 18.3 H Plt Count Lymph % (Auto) [place] % (Auto) Lymph # (Auto) [place] # (Auto) Baso # (Auto) Seg Neutrophils % Seg Neuts % (Manual) Lymphocytes % (Manual) Monocytes % (Manual) Nucleated RBC % Seg Neutrophils # Seg Neutrophils # Man Lymphocytes # (Manual) Monocytes # (Manual) PT INR APTT Fibrinogen D-Dimer ABG pH 7.473 H POC ABG pCO2 20.7 L POC ABG pO2 137.9 H ABG pO2 ABG HCO3 ABG Base Excess ABG Hemoglobin 11.2 L ABG Oxyhemoglobin 98.3 H ABG Sodium 135.9 L ABG Potassium ABG Chloride 111.0 H ABG Glucose 109 H VBG pH Oxyhemoglobin Carboxyhemoglobin 0.3 L Sodium 135 L Potassium 3.5 L Chloride 109.1 H Carbon Dioxide 18 L BUN Creatinine Glucose POC Glucose Random Insulin C-Peptide Lactic Acid Calcium 7.3 L Ionized Calcium Phosphorus Magnesium 1.60 L AST ALT Alkaline Phosphatase Lactate Dehydrogenase NT-Pro-B Natriuret Pep Total Protein Albumin Arterial Blood Glucose 109 H Arterial Blood Ionized Calcium Urine WBC (Auto) Vancomycin Trough Phenytoin Crossmatch 10/14/20 10/14/20 10/15/20 04:00 04:00 05:50 WBC 28.6 H 23.2 H RBC 3.61 L 3.43 L Hgb 9.9 L Hct 30.0 L MCV MCH MCHC RDW 18.3 H 18.2 H Plt Count Lymph % (Auto) [place] % (Auto) Lymph # (Auto) [place] # (Auto) Baso # (Auto) Seg Neutrophils % Seg Neuts % (Manual) 88.0 H 90.0 H Lymphocytes % (Manual) 5.0 L 4.0 L Monocytes % (Manual) Nucleated RBC % Seg Neutrophils # Seg Neutrophils # Man 25.2 H 20.9 H Lymphocytes # (Manual) 0.9 L Monocytes # (Manual) 1.4 H 0.9 H PT INR APTT Fibrinogen D-Dimer ABG pH POC ABG pCO2 POC ABG pO2 ABG pO2 ABG HCO3 ABG Base Excess ABG Hemoglobin ABG Oxyhemoglobin ABG Sodium ABG Potassium ABG Chloride ABG Glucose VBG pH Oxyhemoglobin Carboxyhemoglobin Sodium Potassium Chloride 109.9 H Carbon Dioxide 17 L BUN Creatinine Glucose POC Glucose Random Insulin C-Peptide Lactic Acid Calcium Ionized Calcium Phosphorus Magnesium AST ALT Alkaline Phosphatase Lactate Dehydrogenase NT-Pro-B Natriuret Pep Total Protein Albumin Arterial Blood Glucose Arterial Blood Ionized Calcium Urine WBC (Auto) Vancomycin Trough Phenytoin Crossmatch 10/15/20 10/16/20 10/17/20 05:50 11:57 04:57 WBC 15.2 H RBC 3.43 L Hgb Hct MCV MCH MCHC RDW 18.1 H Plt Count Lymph % (Auto) [place] % (Auto) Lymph # (Auto) [place] # (Auto) Baso # (Auto) Seg Neutrophils % Seg Neuts % (Manual) Lymphocytes % (Manual) Monocytes % (Manual) Nucleated RBC % Seg Neutrophils # Seg Neutrophils # Man Lymphocytes # (Manual) Monocytes # (Manual) PT INR APTT Fibrinogen D-Dimer ABG pH POC ABG pCO2 POC ABG pO2 ABG pO2 ABG HCO3 ABG Base Excess ABG Hemoglobin ABG Oxyhemoglobin ABG Sodium ABG Potassium ABG Chloride ABG Glucose VBG pH Oxyhemoglobin Carboxyhemoglobin Sodium Potassium Chloride 110.3 H Carbon Dioxide 18 L BUN Creatinine Glucose 105 H POC Glucose 111 H Random Insulin C-Peptide Lactic Acid Calcium 8.3 L Ionized Calcium Phosphorus Magnesium AST ALT Alkaline Phosphatase Lactate Dehydrogenase NT-Pro-B Natriuret Pep Total Protein Albumin Arterial Blood Glucose Arterial Blood Ionized Calcium Urine WBC (Auto) Vancomycin Trough Phenytoin Crossmatch 10/17/20 10/17/20 10/18/20 05:25 21:16 01:31 WBC RBC Hgb Hct MCV MCH MCHC RDW Plt Count Lymph % (Auto) [place] % (Auto) Lymph # (Auto) [place] # (Auto) Baso # (Auto) Seg Neutrophils % Seg Neuts % (Manual) Lymphocytes % (Manual) Monocytes % (Manual) Nucleated RBC % Seg Neutrophils # Seg Neutrophils # Man Lymphocytes # (Manual) Monocytes # (Manual) PT INR APTT Fibrinogen D-Dimer ABG pH POC ABG pCO2 POC ABG pO2 ABG pO2 ABG HCO3 ABG Base Excess ABG Hemoglobin ABG Oxyhemoglobin ABG Sodium ABG Potassium ABG Chloride ABG Glucose VBG pH Oxyhemoglobin Carboxyhemoglobin Sodium Potassium Chloride Carbon Dioxide BUN Creatinine Glucose POC Glucose 107 H 106 H 119 H Random Insulin C-Peptide Lactic Acid Calcium Ionized Calcium Phosphorus Magnesium AST ALT Alkaline Phosphatase Lactate Dehydrogenase NT-Pro-B Natriuret Pep Total Protein Albumin Arterial Blood Glucose Arterial Blood Ionized Calcium Urine WBC (Auto) Vancomycin Trough Phenytoin Crossmatch 10/18/20 10/18/20 10/19/20 05:45 11:23 01:14 WBC RBC Hgb Hct MCV MCH MCHC RDW Plt Count Lymph % (Auto) [place] % (Auto) Lymph # (Auto) [place] # (Auto) Baso # (Auto) Seg Neutrophils % Seg Neuts % (Manual) Lymphocytes % (Manual) Monocytes % (Manual) Nucleated RBC % Seg Neutrophils # Seg Neutrophils # Man Lymphocytes # (Manual) Monocytes # (Manual) PT INR APTT Fibrinogen D-Dimer ABG pH POC ABG pCO2 POC ABG pO2 ABG pO2 ABG HCO3 ABG Base Excess ABG Hemoglobin ABG Oxyhemoglobin ABG Sodium ABG Potassium ABG Chloride ABG Glucose VBG pH Oxyhemoglobin Carboxyhemoglobin Sodium Potassium Chloride Carbon Dioxide BUN Creatinine Glucose POC Glucose 106 H 115 H 108 H Random Insulin C-Peptide Lactic Acid Calcium Ionized Calcium Phosphorus Magnesium AST ALT Alkaline Phosphatase Lactate Dehydrogenase NT-Pro-B Natriuret Pep Total Protein Albumin Arterial Blood Glucose Arterial Blood Ionized Calcium Urine WBC (Auto) Vancomycin Trough Phenytoin Crossmatch 10/19/20 10/20/20 10/20/20 09:57 05:40 07:59 WBC RBC Hgb Hct MCV MCH MCHC RDW Plt Count Lymph % (Auto) [place] % (Auto) Lymph # (Auto) [place] # (Auto) Baso # (Auto) Seg Neutrophils % Seg Neuts % (Manual) Lymphocytes % (Manual) Monocytes % (Manual) Nucleated RBC % Seg Neutrophils # Seg Neutrophils # Man Lymphocytes # (Manual) Monocytes # (Manual) PT INR APTT Fibrinogen D-Dimer ABG pH POC ABG pCO2 POC ABG pO2 ABG pO2 ABG HCO3 ABG Base Excess ABG Hemoglobin ABG Oxyhemoglobin ABG Sodium ABG Potassium ABG Chloride ABG Glucose VBG pH Oxyhemoglobin Carboxyhemoglobin Sodium Potassium Chloride Carbon Dioxide BUN Creatinine Glucose 106 H POC Glucose 122 H 109 H Random Insulin C-Peptide Lactic Acid Calcium Ionized Calcium Phosphorus Magnesium AST ALT Alkaline Phosphatase Lactate Dehydrogenase NT-Pro-B Natriuret Pep Total Protein Albumin Arterial Blood Glucose Arterial Blood Ionized Calcium Urine WBC (Auto) Vancomycin Trough Phenytoin Crossmatch 10/20/20 10/20/20 10/21/20 16:52 16:52 13:54 WBC 18.8 H 17.0 H RBC Hgb Hct MCV MCH MCHC RDW 17.7 H 17.8 H Plt Count 547 H 544 H Lymph % (Auto) 11.2 L [place] % (Auto) 8.1 H Lymph # (Auto) [place] # (Auto) 1.5 H Baso # (Auto) 0.2 H Seg Neutrophils % 78.8 H Seg Neuts % (Manual) Lymphocytes % (Manual) Monocytes % (Manual) Nucleated RBC % Seg Neutrophils # 14.8 H Seg Neutrophils # Man Lymphocytes # (Manual) Monocytes # (Manual) PT INR APTT Fibrinogen D-Dimer ABG pH POC ABG pCO2 POC ABG pO2 ABG pO2 ABG HCO3 ABG Base Excess ABG Hemoglobin ABG Oxyhemoglobin ABG Sodium ABG Potassium ABG Chloride ABG Glucose VBG pH Oxyhemoglobin Carboxyhemoglobin Sodium Potassium Chloride Carbon Dioxide BUN Creatinine Glucose POC Glucose Random Insulin C-Peptide Lactic Acid Calcium Ionized Calcium Phosphorus Magnesium AST ALT Alkaline Phosphatase Lactate Dehydrogenase NT-Pro-B Natriuret Pep Total Protein Albumin Arterial Blood Glucose Arterial Blood Ionized Calcium Urine WBC (Auto) Vancomycin Trough 34.5 H Phenytoin Crossmatch 10/21/20 10/22/20 10/23/20 13:54 07:26 05:34 WBC 18.7 H 13.0 H RBC 3.64 L 3.50 L Hgb Hct 30.0 L MCV MCH MCHC 35 H RDW 17.7 H 17.6 H Plt Count 502 H 503 H Lymph % (Auto) [place] % (Auto) Lymph # (Auto) [place] # (Auto) Baso # (Auto) Seg Neutrophils % Seg Neuts % (Manual) Lymphocytes % (Manual) Monocytes % (Manual) Nucleated RBC % Seg Neutrophils # Seg Neutrophils # Man Lymphocytes # (Manual) Monocytes # (Manual) PT INR APTT Fibrinogen D-Dimer ABG pH POC ABG pCO2 POC ABG pO2 ABG pO2 ABG HCO3 ABG Base Excess ABG Hemoglobin ABG Oxyhemoglobin ABG Sodium ABG Potassium ABG Chloride ABG Glucose VBG pH Oxyhemoglobin Carboxyhemoglobin Sodium 136 L Potassium Chloride Carbon Dioxide BUN Creatinine Glucose 120 H POC Glucose Random Insulin C-Peptide Lactic Acid Calcium Ionized Calcium Phosphorus Magnesium AST ALT Alkaline Phosphatase Lactate Dehydrogenase NT-Pro-B Natriuret Pep Total Protein Albumin Arterial Blood Glucose Arterial Blood Ionized Calcium Urine WBC (Auto) Vancomycin Trough Phenytoin Crossmatch 10/23/20 10/26/20 10/27/20 05:34 10:30 07:53 WBC 13.6 H RBC 3.38 L Hgb 10.0 L Hct 28.8 L MCV MCH MCHC 35 H RDW 17.6 H Plt Count Lymph % (Auto) [place] % (Auto) Lymph # (Auto) [place] # (Auto) Baso # (Auto) Seg Neutrophils % Seg Neuts % (Manual) Lymphocytes % (Manual) Monocytes % (Manual) Nucleated RBC % Seg Neutrophils # Seg Neutrophils # Man Lymphocytes # (Manual) Monocytes # (Manual) PT INR APTT Fibrinogen D-Dimer ABG pH 7.459 H POC ABG pCO2 POC ABG pO2 ABG pO2 112.2 H ABG HCO3 ABG Base Excess ABG Hemoglobin ABG Oxyhemoglobin ABG Sodium ABG Potassium ABG Chloride ABG Glucose VBG pH Oxyhemoglobin Carboxyhemoglobin Sodium 135 L Potassium Chloride Carbon Dioxide BUN Creatinine Glucose 105 H POC Glucose Random Insulin C-Peptide Lactic Acid Calcium Ionized Calcium Phosphorus Magnesium AST ALT Alkaline Phosphatase Lactate Dehydrogenase NT-Pro-B Natriuret Pep Total Protein Albumin Arterial Blood Glucose Arterial Blood Ionized Calcium Urine WBC (Auto) Vancomycin Trough Phenytoin Crossmatch 10/27/20 10/27/20 10/28/20 07:53 11:31 05:19 WBC RBC Hgb Hct MCV MCH MCHC RDW Plt Count Lymph % (Auto) [place] % (Auto) Lymph # (Auto) [place] # (Auto) Baso # (Auto) Seg Neutrophils % Seg Neuts % (Manual) Lymphocytes % (Manual) Monocytes % (Manual) Nucleated RBC % Seg Neutrophils # Seg Neutrophils # Man Lymphocytes # (Manual) Monocytes # (Manual) PT INR APTT Fibrinogen D-Dimer ABG pH POC ABG pCO2 POC ABG pO2 ABG pO2 ABG HCO3 ABG Base Excess ABG Hemoglobin ABG Oxyhemoglobin ABG Sodium ABG Potassium ABG Chloride ABG Glucose VBG pH Oxyhemoglobin Carboxyhemoglobin Sodium Potassium Chloride Carbon Dioxide BUN 20 H Creatinine Glucose 112 H POC Glucose 113 H 112 H Random Insulin C-Peptide Lactic Acid Calcium Ionized Calcium Phosphorus Magnesium AST 83 H ALT Alkaline Phosphatase Lactate Dehydrogenase NT-Pro-B Natriuret Pep Total Protein Albumin 3.8 L Arterial Blood Glucose Arterial Blood Ionized Calcium Urine WBC (Auto) Vancomycin Trough Phenytoin Crossmatch 10/29/20 10/29/20 10/29/20 07:56 07:56 11:37 WBC 13.6 H RBC Hgb Hct MCV MCH MCHC RDW 17.0 H Plt Count Lymph % (Auto) [place] % (Auto) Lymph # (Auto) [place] # (Auto) Baso # (Auto) Seg Neutrophils % Seg Neuts % (Manual) 80.0 H Lymphocytes % (Manual) Monocytes % (Manual) Nucleated RBC % Seg Neutrophils # Seg Neutrophils # Man 10.9 H Lymphocytes # (Manual) Monocytes # (Manual) PT INR APTT Fibrinogen D-Dimer ABG pH POC ABG pCO2 POC ABG pO2 ABG pO2 ABG HCO3 ABG Base Excess ABG Hemoglobin ABG Oxyhemoglobin ABG Sodium ABG Potassium ABG Chloride ABG Glucose VBG pH Oxyhemoglobin Carboxyhemoglobin Sodium Potassium Chloride Carbon Dioxide BUN Creatinine Glucose POC Glucose 108 H Random Insulin C-Peptide Lactic Acid Calcium Ionized Calcium Phosphorus 4.70 H Magnesium AST ALT Alkaline Phosphatase Lactate Dehydrogenase NT-Pro-B Natriuret Pep Total Protein Albumin Arterial Blood Glucose Arterial Blood Ionized Calcium Urine WBC (Auto) Vancomycin Trough Phenytoin Crossmatch 10/29/20 10/30/20 10/30/20 13:32 12:11 17:19 WBC RBC Hgb Hct MCV MCH MCHC RDW Plt Count Lymph % (Auto) [place] % (Auto) Lymph # (Auto) [place] # (Auto) Baso # (Auto) Seg Neutrophils % Seg Neuts % (Manual) Lymphocytes % (Manual) Monocytes % (Manual) Nucleated RBC % Seg Neutrophils # Seg Neutrophils # Man Lymphocytes # (Manual) Monocytes # (Manual) PT INR APTT Fibrinogen D-Dimer ABG pH POC ABG pCO2 POC ABG pO2 ABG pO2 ABG HCO3 ABG Base Excess ABG Hemoglobin ABG Oxyhemoglobin ABG Sodium ABG Potassium ABG Chloride ABG Glucose VBG pH Oxyhemoglobin Carboxyhemoglobin Sodium Potassium Chloride Carbon Dioxide BUN Creatinine Glucose POC Glucose 108 H 106 H 107 H Random Insulin C-Peptide Lactic Acid Calcium Ionized Calcium Phosphorus Magnesium AST ALT Alkaline Phosphatase Lactate Dehydrogenase NT-Pro-B Natriuret Pep Total Protein Albumin Arterial Blood Glucose Arterial Blood Ionized Calcium Urine WBC (Auto) Vancomycin Trough Phenytoin Crossmatch 10/31/20 10/31/20 11/01/20 03:20 05:43 04:55 WBC RBC Hgb Hct MCV MCH MCHC RDW Plt Count Lymph % (Auto) [place] % (Auto) Lymph # (Auto) [place] # (Auto) Baso # (Auto) Seg Neutrophils % Seg Neuts % (Manual) Lymphocytes % (Manual) Monocytes % (Manual) Nucleated RBC % Seg Neutrophils # Seg Neutrophils # Man Lymphocytes # (Manual) Monocytes # (Manual) PT INR APTT Fibrinogen D-Dimer ABG pH POC ABG pCO2 POC ABG pO2 ABG pO2 ABG HCO3 ABG Base Excess ABG Hemoglobin ABG Oxyhemoglobin ABG Sodium ABG Potassium ABG Chloride ABG Glucose VBG pH Oxyhemoglobin Carboxyhemoglobin Sodium Potassium Chloride Carbon Dioxide BUN Creatinine Glucose POC Glucose 108 H 115 H 108 H Random Insulin C-Peptide Lactic Acid Calcium Ionized Calcium Phosphorus Magnesium AST ALT Alkaline Phosphatase Lactate Dehydrogenase NT-Pro-B Natriuret Pep Total Protein Albumin Arterial Blood Glucose Arterial Blood Ionized Calcium Urine WBC (Auto) Vancomycin Trough Phenytoin Crossmatch 11/01/20 11/01/20 11/01/20 05:01 16:47 21:36 WBC RBC Hgb Hct MCV MCH MCHC RDW Plt Count Lymph % (Auto) [place] % (Auto) Lymph # (Auto) [place] # (Auto) Baso # (Auto) Seg Neutrophils % Seg Neuts % (Manual) Lymphocytes % (Manual) Monocytes % (Manual) Nucleated RBC % Seg Neutrophils # Seg Neutrophils # Man Lymphocytes # (Manual) Monocytes # (Manual) PT INR APTT Fibrinogen D-Dimer ABG pH POC ABG pCO2 POC ABG pO2 ABG pO2 ABG HCO3 ABG Base Excess ABG Hemoglobin ABG Oxyhemoglobin ABG Sodium ABG Potassium ABG Chloride ABG Glucose VBG pH Oxyhemoglobin Carboxyhemoglobin Sodium 135 L Potassium Chloride Carbon Dioxide BUN Creatinine Glucose POC Glucose 116 H 112 H Random Insulin C-Peptide Lactic Acid Calcium Ionized Calcium Phosphorus Magnesium AST 93 H ALT Alkaline Phosphatase 132 H Lactate Dehydrogenase NT-Pro-B Natriuret Pep Total Protein Albumin 3.6 L Arterial Blood Glucose Arterial Blood Ionized Calcium Urine WBC (Auto) Vancomycin Trough Phenytoin Crossmatch 11/02/20 11/02/20 11/02/20 17:45 19:19 19:19 WBC RBC Hgb Hct MCV MCH MCHC RDW Plt Count Lymph % (Auto) [place] % (Auto) Lymph # (Auto) [place] # (Auto) Baso # (Auto) Seg Neutrophils % Seg Neuts % (Manual) Lymphocytes % (Manual) Monocytes % (Manual) Nucleated RBC % Seg Neutrophils # Seg Neutrophils # Man Lymphocytes # (Manual) Monocytes # (Manual) PT INR APTT Fibrinogen D-Dimer ABG pH POC ABG pCO2 POC ABG pO2 ABG pO2 ABG HCO3 ABG Base Excess ABG Hemoglobin ABG Oxyhemoglobin ABG Sodium ABG Potassium ABG Chloride ABG Glucose VBG pH Oxyhemoglobin Carboxyhemoglobin Sodium Potassium Chloride Carbon Dioxide BUN Creatinine Glucose POC Glucose 107 H Random Insulin 43.2 H C-Peptide 6.23 H Lactic Acid Calcium Ionized Calcium Phosphorus Magnesium AST ALT Alkaline Phosphatase Lactate Dehydrogenase NT-Pro-B Natriuret Pep Total Protein Albumin Arterial Blood Glucose Arterial Blood Ionized Calcium Urine WBC (Auto) Vancomycin Trough Phenytoin Crossmatch 11/03/20 11/04/20 11/04/20 21:49 05:00 05:00 WBC 13.8 H RBC Hgb Hct MCV MCH MCHC RDW 16.6 H Plt Count Lymph % (Auto) 11.8 L [place] % (Auto) 11.0 H Lymph # (Auto) [place] # (Auto) 1.5 H Baso # (Auto) Seg Neutrophils % 75.1 H Seg Neuts % (Manual) Lymphocytes % (Manual) Monocytes % (Manual) Nucleated RBC % Seg Neutrophils # 10.4 H Seg Neutrophils # Man Lymphocytes # (Manual) Monocytes # (Manual) PT INR APTT Fibrinogen D-Dimer ABG pH POC ABG pCO2 POC ABG pO2 ABG pO2 ABG HCO3 ABG Base Excess ABG Hemoglobin ABG Oxyhemoglobin ABG Sodium ABG Potassium ABG Chloride ABG Glucose VBG pH Oxyhemoglobin Carboxyhemoglobin Sodium Potassium Chloride Carbon Dioxide BUN Creatinine Glucose 112 H POC Glucose 109 H Random Insulin C-Peptide Lactic Acid Calcium Ionized Calcium Phosphorus Magnesium AST 90 H ALT Alkaline Phosphatase Lactate Dehydrogenase NT-Pro-B Natriuret Pep Total Protein Albumin 3.8 L Arterial Blood Glucose Arterial Blood Ionized Calcium Urine WBC (Auto) Vancomycin Trough Phenytoin Crossmatch 11/04/20 11/04/20 11/05/20 06:03 23:47 07:47 WBC RBC Hgb Hct MCV MCH MCHC RDW Plt Count Lymph % (Auto) [place] % (Auto) Lymph # (Auto) [place] # (Auto) Baso # (Auto) Seg Neutrophils % Seg Neuts % (Manual) Lymphocytes % (Manual) Monocytes % (Manual) Nucleated RBC % Seg Neutrophils # Seg Neutrophils # Man Lymphocytes # (Manual) Monocytes # (Manual) PT INR APTT Fibrinogen D-Dimer ABG pH POC ABG pCO2 POC ABG pO2 ABG pO2 ABG HCO3 ABG Base Excess ABG Hemoglobin ABG Oxyhemoglobin ABG Sodium ABG Potassium ABG Chloride ABG Glucose VBG pH Oxyhemoglobin Carboxyhemoglobin Sodium Potassium Chloride Carbon Dioxide BUN Creatinine Glucose POC Glucose 107 H 121 H 111 H Random Insulin C-Peptide Lactic Acid Calcium Ionized Calcium Phosphorus Magnesium AST ALT Alkaline Phosphatase Lactate Dehydrogenase NT-Pro-B Natriuret Pep Total Protein Albumin Arterial Blood Glucose Arterial Blood Ionized Calcium Urine WBC (Auto) Vancomycin Trough Phenytoin Crossmatch 11/05/20 11/06/20 11/06/20 23:24 17:04 23:36 WBC RBC Hgb Hct MCV MCH MCHC RDW Plt Count Lymph % (Auto) [place] % (Auto) Lymph # (Auto) [place] # (Auto) Baso # (Auto) Seg Neutrophils % Seg Neuts % (Manual) Lymphocytes % (Manual) Monocytes % (Manual) Nucleated RBC % Seg Neutrophils # Seg Neutrophils # Man Lymphocytes # (Manual) Monocytes # (Manual) PT INR APTT Fibrinogen D-Dimer ABG pH POC ABG pCO2 POC ABG pO2 ABG pO2 ABG HCO3 ABG Base Excess ABG Hemoglobin ABG Oxyhemoglobin ABG Sodium ABG Potassium ABG Chloride ABG Glucose VBG pH Oxyhemoglobin Carboxyhemoglobin Sodium Potassium Chloride Carbon Dioxide BUN Creatinine Glucose POC Glucose 111 H 112 H 108 H Random Insulin C-Peptide Lactic Acid Calcium Ionized Calcium Phosphorus Magnesium AST ALT Alkaline Phosphatase Lactate Dehydrogenase NT-Pro-B Natriuret Pep Total Protein Albumin Arterial Blood Glucose Arterial Blood Ionized Calcium Urine WBC (Auto) Vancomycin Trough Phenytoin Crossmatch 11/07/20 11/07/20 11/07/20 03:33 04:44 04:44 WBC RBC Hgb Hct MCV MCH MCHC RDW 16.6 H Plt Count Lymph % (Auto) [place] % (Auto) 13.1 H Lymph # (Auto) [place] # (Auto) 1.3 H Baso # (Auto) Seg Neutrophils % Seg Neuts % (Manual) Lymphocytes % (Manual) Monocytes % (Manual) Nucleated RBC % Seg Neutrophils # Seg Neutrophils # Man Lymphocytes # (Manual) Monocytes # (Manual) PT INR APTT Fibrinogen D-Dimer ABG pH POC ABG pCO2 POC ABG pO2 ABG pO2 ABG HCO3 ABG Base Excess ABG Hemoglobin ABG Oxyhemoglobin ABG Sodium ABG Potassium ABG Chloride ABG Glucose VBG pH Oxyhemoglobin Carboxyhemoglobin Sodium Potassium Chloride Carbon Dioxide BUN Creatinine Glucose 103 H POC Glucose 109 H Random Insulin C-Peptide Lactic Acid Calcium Ionized Calcium Phosphorus 5.30 H Magnesium AST ALT Alkaline Phosphatase Lactate Dehydrogenase NT-Pro-B Natriuret Pep Total Protein Albumin Arterial Blood Glucose Arterial Blood Ionized Calcium Urine WBC (Auto) Vancomycin Trough Phenytoin Crossmatch 11/07/20 11/07/20 11/08/20 15:58 23:46 07:30 WBC RBC Hgb Hct MCV MCH MCHC RDW Plt Count Lymph % (Auto) [place] % (Auto) Lymph # (Auto) [place] # (Auto) Baso # (Auto) Seg Neutrophils % Seg Neuts % (Manual) Lymphocytes % (Manual) Monocytes % (Manual) Nucleated RBC % Seg Neutrophils # Seg Neutrophils # Man Lymphocytes # (Manual) Monocytes # (Manual) PT INR APTT Fibrinogen D-Dimer ABG pH POC ABG pCO2 POC ABG pO2 ABG pO2 ABG HCO3 ABG Base Excess ABG Hemoglobin ABG Oxyhemoglobin ABG Sodium ABG Potassium ABG Chloride ABG Glucose VBG pH Oxyhemoglobin Carboxyhemoglobin Sodium Potassium Chloride Carbon Dioxide BUN Creatinine Glucose POC Glucose 108 H 106 H 109 H Random Insulin C-Peptide Lactic Acid Calcium Ionized Calcium Phosphorus Magnesium AST ALT Alkaline Phosphatase Lactate Dehydrogenase NT-Pro-B Natriuret Pep Total Protein Albumin Arterial Blood Glucose Arterial Blood Ionized Calcium Urine WBC (Auto) Vancomycin Trough Phenytoin Crossmatch 11/08/20 11/08/20 11/09/20 11:48 23:32 17:10 WBC RBC Hgb Hct MCV MCH MCHC RDW Plt Count Lymph % (Auto) [place] % (Auto) Lymph # (Auto) [place] # (Auto) Baso # (Auto) Seg Neutrophils % Seg Neuts % (Manual) Lymphocytes % (Manual) Monocytes % (Manual) Nucleated RBC % Seg Neutrophils # Seg Neutrophils # Man Lymphocytes # (Manual) Monocytes # (Manual) PT INR APTT Fibrinogen D-Dimer ABG pH POC ABG pCO2 POC ABG pO2 ABG pO2 ABG HCO3 ABG Base Excess ABG Hemoglobin ABG Oxyhemoglobin ABG Sodium ABG Potassium ABG Chloride ABG Glucose VBG pH Oxyhemoglobin Carboxyhemoglobin Sodium Potassium Chloride Carbon Dioxide BUN Creatinine Glucose POC Glucose 110 H 116 H 112 H Random Insulin C-Peptide Lactic Acid Calcium Ionized Calcium Phosphorus Magnesium AST ALT Alkaline Phosphatase Lactate Dehydrogenase NT-Pro-B Natriuret Pep Total Protein Albumin Arterial Blood Glucose Arterial Blood Ionized Calcium Urine WBC (Auto) Vancomycin Trough Phenytoin Crossmatch 11/09/20 11/10/20 11/10/20 21:42 05:49 07:17 WBC RBC Hgb Hct MCV MCH MCHC RDW Plt Count Lymph % (Auto) [place] % (Auto) Lymph # (Auto) [place] # (Auto) Baso # (Auto) Seg Neutrophils % Seg Neuts % (Manual) Lymphocytes % (Manual) Monocytes % (Manual) Nucleated RBC % Seg Neutrophils # Seg Neutrophils # Man Lymphocytes # (Manual) Monocytes # (Manual) PT INR APTT Fibrinogen D-Dimer ABG pH POC ABG pCO2 POC ABG pO2 ABG pO2 ABG HCO3 ABG Base Excess ABG Hemoglobin ABG Oxyhemoglobin ABG Sodium ABG Potassium ABG Chloride ABG Glucose VBG pH Oxyhemoglobin Carboxyhemoglobin Sodium Potassium Chloride Carbon Dioxide BUN Creatinine Glucose POC Glucose 110 H 108 H 111 H Random Insulin C-Peptide Lactic Acid Calcium Ionized Calcium Phosphorus Magnesium AST ALT Alkaline Phosphatase Lactate Dehydrogenase NT-Pro-B Natriuret Pep Total Protein Albumin Arterial Blood Glucose Arterial Blood Ionized Calcium Urine WBC (Auto) Vancomycin Trough Phenytoin Crossmatch 11/10/20 11/11/20 11/11/20 20:36 04:58 11:56 WBC RBC Hgb Hct MCV MCH MCHC RDW Plt Count Lymph % (Auto) [place] % (Auto) Lymph # (Auto) [place] # (Auto) Baso # (Auto) Seg Neutrophils % Seg Neuts % (Manual) Lymphocytes % (Manual) Monocytes % (Manual) Nucleated RBC % Seg Neutrophils # Seg Neutrophils # Man Lymphocytes # (Manual) Monocytes # (Manual) PT INR APTT Fibrinogen D-Dimer ABG pH POC ABG pCO2 POC ABG pO2 ABG pO2 ABG HCO3 ABG Base Excess ABG Hemoglobin ABG Oxyhemoglobin ABG Sodium ABG Potassium ABG Chloride ABG Glucose VBG pH Oxyhemoglobin Carboxyhemoglobin Sodium Potassium Chloride Carbon Dioxide BUN Creatinine Glucose POC Glucose 111 H 109 H 109 H Random Insulin C-Peptide Lactic Acid Calcium Ionized Calcium Phosphorus Magnesium AST ALT Alkaline Phosphatase Lactate Dehydrogenase NT-Pro-B Natriuret Pep Total Protein Albumin Arterial Blood Glucose Arterial Blood Ionized Calcium Urine WBC (Auto) Vancomycin Trough Phenytoin Crossmatch 11/11/20 11/11/20 11/11/20 13:50 13:50 15:50 WBC RBC Hgb Hct MCV MCH MCHC RDW Plt Count Lymph % (Auto) [place] % (Auto) Lymph # (Auto) [place] # (Auto) Baso # (Auto) Seg Neutrophils % Seg Neuts % (Manual) Lymphocytes % (Manual) Monocytes % (Manual) Nucleated RBC % Seg Neutrophils # Seg Neutrophils # Man Lymphocytes # (Manual) Monocytes # (Manual) PT INR APTT Fibrinogen D-Dimer 1974.47 H ABG pH POC ABG pCO2 POC ABG pO2 ABG pO2 ABG HCO3 ABG Base Excess ABG Hemoglobin ABG Oxyhemoglobin ABG Sodium ABG Potassium ABG Chloride ABG Glucose VBG pH Oxyhemoglobin Carboxyhemoglobin Sodium Potassium Chloride Carbon Dioxide BUN Creatinine Glucose POC Glucose 107 H Random Insulin C-Peptide Lactic Acid Calcium Ionized Calcium Phosphorus Magnesium AST ALT Alkaline Phosphatase Lactate Dehydrogenase NT-Pro-B Natriuret Pep Total Protein Albumin Arterial Blood Glucose Arterial Blood Ionized Calcium Urine WBC (Auto) > 182.0 H Vancomycin Trough Phenytoin Crossmatch 11/11/20 11/12/20 11/12/20 23:17 11:33 22:20 WBC RBC Hgb Hct MCV MCH MCHC RDW Plt Count Lymph % (Auto) [place] % (Auto) Lymph # (Auto) [place] # (Auto) Baso # (Auto) Seg Neutrophils % Seg Neuts % (Manual) Lymphocytes % (Manual) Monocytes % (Manual) Nucleated RBC % Seg Neutrophils # Seg Neutrophils # Man Lymphocytes # (Manual) Monocytes # (Manual) PT INR APTT Fibrinogen D-Dimer ABG pH POC ABG pCO2 POC ABG pO2 ABG pO2 ABG HCO3 ABG Base Excess ABG Hemoglobin ABG Oxyhemoglobin ABG Sodium ABG Potassium ABG Chloride ABG Glucose VBG pH Oxyhemoglobin Carboxyhemoglobin Sodium Potassium Chloride Carbon Dioxide BUN Creatinine Glucose POC Glucose 119 H 111 H 107 H Random Insulin C-Peptide Lactic Acid Calcium Ionized Calcium Phosphorus Magnesium AST ALT Alkaline Phosphatase Lactate Dehydrogenase NT-Pro-B Natriuret Pep Total Protein Albumin Arterial Blood Glucose Arterial Blood Ionized Calcium Urine WBC (Auto) Vancomycin Trough Phenytoin Crossmatch 11/13/20 11/13/20 11/13/20 01:52 07:33 10:05 WBC RBC Hgb Hct MCV MCH MCHC RDW Plt Count Lymph % (Auto) [place] % (Auto) Lymph # (Auto) [place] # (Auto) Baso # (Auto) Seg Neutrophils % Seg Neuts % (Manual) Lymphocytes % (Manual) Monocytes % (Manual) Nucleated RBC % Seg Neutrophils # Seg Neutrophils # Man Lymphocytes # (Manual) Monocytes # (Manual) PT INR APTT Fibrinogen D-Dimer ABG pH POC ABG pCO2 POC ABG pO2 ABG pO2 ABG HCO3 ABG Base Excess ABG Hemoglobin ABG Oxyhemoglobin ABG Sodium ABG Potassium ABG Chloride ABG Glucose VBG pH Oxyhemoglobin Carboxyhemoglobin Sodium Potassium Chloride Carbon Dioxide BUN Creatinine Glucose 114 H POC Glucose 124 H 106 H Random Insulin C-Peptide Lactic Acid Calcium Ionized Calcium Phosphorus 4.60 H Magnesium AST ALT Alkaline Phosphatase Lactate Dehydrogenase NT-Pro-B Natriuret Pep Total Protein Albumin Arterial Blood Glucose Arterial Blood Ionized Calcium Urine WBC (Auto) Vancomycin Trough Phenytoin Crossmatch 11/13/20 11/13/20 11/14/20 11:50 17:20 05:26 WBC RBC Hgb Hct MCV MCH MCHC RDW Plt Count Lymph % (Auto) [place] % (Auto) Lymph # (Auto) [place] # (Auto) Baso # (Auto) Seg Neutrophils % Seg Neuts % (Manual) Lymphocytes % (Manual) Monocytes % (Manual) Nucleated RBC % Seg Neutrophils # Seg Neutrophils # Man Lymphocytes # (Manual) Monocytes # (Manual) PT INR APTT Fibrinogen D-Dimer ABG pH POC ABG pCO2 POC ABG pO2 ABG pO2 ABG HCO3 ABG Base Excess ABG Hemoglobin ABG Oxyhemoglobin ABG Sodium ABG Potassium ABG Chloride ABG Glucose VBG pH Oxyhemoglobin Carboxyhemoglobin Sodium Potassium Chloride Carbon Dioxide BUN Creatinine Glucose POC Glucose 113 H 110 H 110 H Random Insulin C-Peptide Lactic Acid Calcium Ionized Calcium Phosphorus Magnesium AST ALT Alkaline Phosphatase Lactate Dehydrogenase NT-Pro-B Natriuret Pep Total Protein Albumin Arterial Blood Glucose Arterial Blood Ionized Calcium Urine WBC (Auto) Vancomycin Trough Phenytoin Crossmatch 11/14/20 11/15/20 11/15/20 23:23 05:07 11:48 WBC RBC Hgb Hct MCV MCH MCHC RDW Plt Count Lymph % (Auto) [place] % (Auto) Lymph # (Auto) [place] # (Auto) Baso # (Auto) Seg Neutrophils % Seg Neuts % (Manual) Lymphocytes % (Manual) Monocytes % (Manual) Nucleated RBC % Seg Neutrophils # Seg Neutrophils # Man Lymphocytes # (Manual) Monocytes # (Manual) PT INR APTT Fibrinogen D-Dimer ABG pH POC ABG pCO2 POC ABG pO2 ABG pO2 ABG HCO3 ABG Base Excess ABG Hemoglobin ABG Oxyhemoglobin ABG Sodium ABG Potassium ABG Chloride ABG Glucose VBG pH Oxyhemoglobin Carboxyhemoglobin Sodium Potassium Chloride Carbon Dioxide BUN Creatinine Glucose POC Glucose 112 H 115 H 114 H Random Insulin C-Peptide Lactic Acid Calcium Ionized Calcium Phosphorus Magnesium AST ALT Alkaline Phosphatase Lactate Dehydrogenase NT-Pro-B Natriuret Pep Total Protein Albumin Arterial Blood Glucose Arterial Blood Ionized Calcium Urine WBC (Auto) Vancomycin Trough Phenytoin Crossmatch 11/16/20 11/17/20 11/18/20 05:06 00:17 05:04 WBC RBC Hgb Hct MCV MCH MCHC RDW Plt Count Lymph % (Auto) [place] % (Auto) Lymph # (Auto) [place] # (Auto) Baso # (Auto) Seg Neutrophils % Seg Neuts % (Manual) Lymphocytes % (Manual) Monocytes % (Manual) Nucleated RBC % Seg Neutrophils # Seg Neutrophils # Man Lymphocytes # (Manual) Monocytes # (Manual) PT INR APTT Fibrinogen D-Dimer ABG pH POC ABG pCO2 POC ABG pO2 ABG pO2 ABG HCO3 ABG Base Excess ABG Hemoglobin ABG Oxyhemoglobin ABG Sodium ABG Potassium ABG Chloride ABG Glucose VBG pH Oxyhemoglobin Carboxyhemoglobin Sodium Potassium Chloride Carbon Dioxide BUN Creatinine Glucose POC Glucose 110 H 115 H 111 H Random Insulin C-Peptide Lactic Acid Calcium Ionized Calcium Phosphorus Magnesium AST ALT Alkaline Phosphatase Lactate Dehydrogenase NT-Pro-B Natriuret Pep Total Protein Albumin Arterial Blood Glucose Arterial Blood Ionized Calcium Urine WBC (Auto) Vancomycin Trough Phenytoin Crossmatch 11/21/20 11/21/20 11/21/20 00:04 05:51 23:26 WBC RBC Hgb Hct MCV MCH MCHC RDW Plt Count Lymph % (Auto) [place] % (Auto) Lymph # (Auto) [place] # (Auto) Baso # (Auto) Seg Neutrophils % Seg Neuts % (Manual) Lymphocytes % (Manual) Monocytes % (Manual) Nucleated RBC % Seg Neutrophils # Seg Neutrophils # Man Lymphocytes # (Manual) Monocytes # (Manual) PT INR APTT Fibrinogen D-Dimer ABG pH POC ABG pCO2 POC ABG pO2 ABG pO2 ABG HCO3 ABG Base Excess ABG Hemoglobin ABG Oxyhemoglobin ABG Sodium ABG Potassium ABG Chloride ABG Glucose VBG pH Oxyhemoglobin Carboxyhemoglobin Sodium Potassium Chloride Carbon Dioxide BUN Creatinine Glucose POC Glucose 117 H 112 H 107 H Random Insulin C-Peptide Lactic Acid Calcium Ionized Calcium Phosphorus Magnesium AST ALT Alkaline Phosphatase Lactate Dehydrogenase NT-Pro-B Natriuret Pep Total Protein Albumin Arterial Blood Glucose Arterial Blood Ionized Calcium Urine WBC (Auto) Vancomycin Trough Phenytoin Crossmatch 11/22/20 11/22/20 05:24 11:59 WBC RBC Hgb Hct MCV MCH MCHC RDW Plt Count Lymph % (Auto) [place] % (Auto) Lymph # (Auto) [place] # (Auto) Baso # (Auto) Seg Neutrophils % Seg Neuts % (Manual) Lymphocytes % (Manual) Monocytes % (Manual) Nucleated RBC % Seg Neutrophils # Seg Neutrophils # Man Lymphocytes # (Manual) Monocytes # (Manual) PT INR APTT Fibrinogen D-Dimer ABG pH POC ABG pCO2 POC ABG pO2 ABG pO2 ABG HCO3 ABG Base Excess ABG Hemoglobin ABG Oxyhemoglobin ABG Sodium ABG Potassium ABG Chloride ABG Glucose VBG pH Oxyhemoglobin Carboxyhemoglobin Sodium Potassium Chloride Carbon Dioxide BUN Creatinine Glucose POC Glucose 120 H 111 H Random Insulin C-Peptide Lactic Acid Calcium Ionized Calcium Phosphorus Magnesium AST ALT Alkaline Phosphatase Lactate Dehydrogenase NT-Pro-B Natriuret Pep Total Protein Albumin Arterial Blood Glucose Arterial Blood Ionized Calcium Urine WBC (Auto) Vancomycin Trough Phenytoin Crossmatch
[2020-11-22] MEDS: TOPIRAMATE TAB 25 MG TAB PO SCH ×2 (16:31→22:07)
--- NOTE | 2020-11-22 17:10 | Progress Note ---
Assessment and Plan Critical care statement The high probability of a clinically significant, sudden or life threatening deterioration of the [MULTIPLE ORGAN] system(s) required my full and direct attention, intervention and personal management. The aggregate critical care time was [33] minutes. This time is in addition to time spent performing reported procedures but includes the following: [X] Data Review and interpretation [X] Patient assessment and monitoring of vital signs [X] Documentation [X] Medication orders and management Assessment and Plan 30 y/o female patient with Eclampsia/help syndrome, s/p emergent section with DIC, hemorrhage, supracervical abdominal hysterectomy, acute respiratory failure , tracheostomy on T-piece with morbid obesity, s/p cardiac arrest 12/08/2019 status post CPR per ACLS, acute hypoxic brain injury Acute kidney injury improved, severe shock requiring pressors, DIC septic shock improved, history of C. difficile colitis completed treatment with vancomycin. Tracheostomy on T-piece, continues to require 5 L of oxygen. Herpetic flareup, ID started treatment with antibiotics, patient is waiting for SNF placement DC planning per case management Assessment and plan: --Persistent hypoglycemia; patient is requiring continuous D10 W infusion CT abdomen done to rule out insulinoma, CT abdomen report negative for pancreatic tumor We will closely monitor --Cardiac arrest; 10/07/2020 ,status post CPR --Acute hypoxic brain injury; Supportive care, closely monitor --Acute hypoxic respiratory failure: Tracheostomy on T-piece , today on 4.5 L oxygen, saturating 100% Supportive care, Pulmonary critical following COVID-19 negative C. difficile positive; Patient on contact isolation Completed treatment --Afebrile: Blood, urine, tracheal aspirate cultures New cultures negative to date Monitor off antibiotics Closely monitor --Sepsis; received antibiotics Continue to monitor off antibiotics ID following --COVID-19 test negative; 10/08/2020 --C. difficile colitis test; positive; 10/16/2020 --Acute metabolic encephalopathy --Acute kidney injury; vasomotor nephropathy Resolved, renal function within normal limits, closely monitor --Shock; monitor of pressors Blood pressures reasonable level --DIC; sepsis, septic shock, resolved --History of preeclampsia; / hemorrhage Status post hysterectomy --History of C. difficile colitis; completed oral vancomycin --DVT/SVT and right upper extremity Very poor prognosis, Consults recommendations noted and appreciated We will closely monitor the patient and adjust management as needed Plan of care reviewed with the patient's nurse. Waiting for alf facility placement Subjective Date of service: 11/21/20 Principal diagnosis: Eclampsia/HELLP Syndrome, ADOLPH, DIC; s/p , s/p supracervical hyst Interval history: 30 y/o female patient with Eclampsia/help syndrome, s/p emergent section with DIC, hemorrhage, supracervical abdominal hysterectomy, acute respiratory failure , tracheostomy on T-piece with morbid obesity, s/p cardiac arrest 12/08/2019 status post CPR per ACLS, acute hypoxic brain injury Acute kidney injury improved, severe shock requiring pressors, DIC septic shock improved, history of C. difficile colitis on vancomycin. Tracheostomy on T-piece, continues to require 5 L of oxygen. Brief history; 30 year old -[place] female CHE 10/25/20 at 36w5d who presents with seizures in triage on 10/02/20. Pt was not able to provide history but per pt's , she presented to the hospital to return a 24 hour urine specimen for analysis. She then suddenly reported that she did not feel good. She was taken to labor and delivery and shortly after arrival, she began seizing. During this time, a code met was called because the patient became hypoxic. She was then noted to be without a pulse. Chest compressions were started immediately, and the patient was emergently taken to the operating room for delivery of the fetus. Off note, This patient has had care at [facility] with comanagement by [facility] since 11 wks complicated by ADHD, morbid obesity, genera lized anxiety disorder, panic attacks, chronic narcotic use, fibromyalgia, GERD, Irritable Bowel Syndrome, Migraines, h/o endometrial ablation and ovarian vein embolization, genital herpes, insomnia, LGA fetus, nausea and vomiting, polyhydramnios, quad screen positive for Down's Syndrome, and previous x 3. She is GBS negative. , Patient tracheostomy on ventilatory support, unable to wean, continue supportive care poor prognosis 11:30: Pt brought to L&D triage for evaluation of possible labor. Pt accompanied by her spouse. Pt spouse poor historian; unable to obtain history- allergies at this time. Pt taken from registration to triage area via WC. Pt unresponsive, actively seizing with snorous respirations. manager investigations, Kassy, called and requesting assistance. 11:35: Multiple staff at bedside. Pt 02 sat 67% on nonrebreather, unable to read BP . Yifan Theodore CRNA, at bedside for intubation and assistance with IV insertion. INT attempt by multiple RNs unsuccessful at this time. 11:42: Pt being bagged by KORIN, 02% 79%. No pulse palpated, compressions on at this time; bharati young called and Dr. Newberry preparing OR for emergent c/s. 11:44: Continued compressions on stretcher while transporting pt to OR 1. Pt being bagged with jaw thrust manuever in place by KORIN Stringer student. 11:45: Arrival to OR 1. Dr. Newberry and Dr. Portillo present for emergent c/s. Bharati team arrived for continued care. patient revived and c/s done Patient has been bleeding from C/s site followed by supracervical hysterectomy for severe bleeding, Patient transfused multiple units of PRBC, Patient in DIC. Patient transferred to the ICU Hospital course; 10/03. Patient seen and examined at bedside this morning. Patient is nonresponsive and mechanically ventilated. On pressors. Labs reviewed-has leukocytosis, anemia, thrombocytopenia, ADOLPH and lactic acidosis. Started on IV antibiotics to cover possible sepsis secondary to DIC. Hematology oncology recommendations appreciated-needs additional cryoprecipitate and FFP. Monitor D-dimer, fibrinogen and frequent labs. Nephrology consulted for lactic acidosis and ADOLPH. 10/04. Remains mechanically ventilated. Kevin antibiotics. Labs shows improved acidosis - lactic acid 3.5. Hb drop noted. Getting transfused 2 units PRBCs. Platelet count is ~40k. Continue to monitor labs closely. Critical care team on board. 10/05; xray reviewed, concerning for multifocal infilrate, likely underlying Pneumonia, will add ID consult to assist with management of this critically ill patient, start tube feed, closely monitor renal system 10/06: Resumed care, remains on mechanical ventilation. No active bleeding, H&H stable. Continue to monitor CBC and BMP. Continue IV antibiotic for underlying pneumonia. Follow critical care and ID recommendation. 10/07: Remains on mechanical ventilation. No active bleeding, H&H stable. Critical care following, wean off ventilation as tolerated. 10/08: Patient had another cardiac arrest last night. Remains on mechanical ventilation, update family. Continue supportive care -poor prognosis 10/09: Called patient mother and discussed about patient care and management. Answered all question to best of my knowledge and family satisfaction. Patient remains on mechanical ventilation, cardiac arrest x2 so far. Critically sick, poor prognosis 10/10: remains on mechanical ventilation. h/h stable, no active bleeding. monitor CBC/BMP 10/11: WBC trended up with diarrhea, started on vancomycin po. remains on MV, off pressor, tolerating TF 10/12: remains on MV, off pressor, tolerating TF. called family for update but unable to reach, could not leave message as it was full. cont supportive care, wean off vent as tolerated. 10/13/2020; patient is on mechanical ventilation, tolerating tube feeding. Patient has labored breathing. Neuro was consulted and recommend MRI. Patient is on Precedex. Rectal tube in place. 10/14/2020; patient is on mechanical ventilation, Precedex. Patient had fever and blood culture ordered. Patient is on IV vancomycin per ID recommendation. Neuro consulted and recommend MRI. Continue to monitor. Prognosis is guarded. 10/15/2020; patient is on mechanical ventilation, Precedex. Patient had fever and blood culture ordered. Patient is on IV vancomycin per ID recommendation. Neuro consulted and recommend MRI. Continue to monitor. Prognosis is guarded. 12: Remains with C.DIFF and Bactermia, Poor prognosis. No purposeful movement. MRI and EEG discussed with Intensvisit, Continue aggressive BP control. 3: Blood pressure better controlled MRI done 10/15 shows mild improvement in edema. We will continue to monitor mother was at bedside yesterday. Nursing documentation trach and PEG discussed with the mother including goals of care. She is still in denial about the gravity of her daughters her condition which is understandable considering her age. Continue aggressive management at this time. Await for bacteremia to clear by ID before placing PICC line. 10/19: Patient for possible PEG and Trach, ID following, repeat cultures remain n egative. Poor prognosis 10/20: Pt noted to DVT and SVT in the RUE, Vascular consult and will also obtain Hematology for possible considering changing in Anticoagulation. CONTINUE TO MONITOR H/H and PLT. Family updated by [employer]ens[employer]. Heparin gtt started. Will check CBC and BMP 10/21: Continue supporive care, Diarrhea now resolving, But still with persistent Fever, May need repeat CT/AP per ID, still with profused Encephalopathy 10/22: Continue supportive care, weaning, awaiting repeat Imaging. FOLLOW Fever curve. Enoxparin restarted 10/23: Continue supportive care, wean as tolerated. 10/24; Started on CPAP trial, discussed with pulmonary, still with diarrhea. 10/25: Patients seen and examined, no clinical changes, still with diarrhea. ?meaningful recovery. 10/26: Clinically unchanged, continue CPAP trial, Will discuss with Neurology about re-evaluation, ?Need for repeat CT head. ?PRESS considering initial elevated BP, now stable. 10/27; tracheostomy on vent, weaning trials, vital signs noted, poor prognosis 10/28; unable to wean, tracheostomy on vent. Sepsis. Continue current management. Consults and recommendations noted and appreciated 10/30/2020;Patient on T-piece 5 L of oxygen not in acute distress, noncommunicative 11/02/2020; patient on T-piece 5 L of oxygen 11/03/2020; patient's fever slightly improved low-grade, continue current management, remains on T-piece with 5 L of oxygen 11/04/2020; T-max last 24 hours 100.3 F, new cultures negative to date, monitor off antibiotics Patient is off Levophed, blood pressures reasonable level, tracheostomy on T- piece 3 to 5 L nasal cannula oxygen 11/05/2020; tracheostomy on T-piece patient remains on 5 L of nasal cannula oxygen, unresponsive severe hypoxic brain injury I called patient's mother Ms. Pamela Bassett as well as patient's spouse Mr. Danilo Dimas at [phone] unable to reach them Left voicemail on Ms. Pamela Bassettz phone and encouraged him to call back 11/06/2020; I tried to call again today Ms. Pamela Bassett to discuss patient's condition and treatment plan and update consultants recommendations and patient's prognosis., unable to reach her 11/07/20 Will try LTAC/Hospice 11/08/20 Same condition 11/09/2020 Same condition 11/10/2020; family conference was held by case management yesterday 11/09/2020, family decided and agreed for SNF placement 11/11/2020; patient seen and examined, clinically no change tracheostomy on 5 L of nasal cannula oxygen, hemodynamically and clinically stable for discharge To LTAC versus SNF, DC planning per case management 11/12/2020; clinically no change, continue current management, DC planning per case management possible SNF placement 11/13/2020; patient is receiving herpes flareup treatment per ID 11/14/2020; clinically no change, awaiting SNF placement 11/15/2020; clinically no change, tracheostomy on T-piece on 5 L oxygen, awaiting placement 11/16/2020; patient awaiting placement 11/18/2020; abdominal CT scan negative for insulinoma or pancreatic tumor ,clinically no change Awaiting SNF placement 11/19/2020; remains on 4 L of oxygen tracheostomy via T-piece, awaiting SNF placement 11/20/2020 Awaiting SNF placement 11/21/2020 Waiting for SNF placement Objective - Exam Narrative Exam: Patient with tracheostomy - Constitutional Vitals: Vital Signs - 12hr 11/22/20 11/22/20 11/22/20 06:00 06:04 07:00 Temperature Pulse Rate 94 H 106 H Pulse Rate [ From Monitor] Respiratory 20 26 H Rate Blood Pressure 105/65 105/65 113/63 O2 Sat by Pulse 97 98 Oximetry O2 Sat by Pulse Oximetry [ Assessment] 11/22/20 11/22/20 11/22/20 07:43 07:44 08:00 Temperature 98.1 F Pulse Rate 93 H Pulse Rate [ 93 H From Monitor] Respiratory 22 Rate Blood Pressure 112/75 O2 Sat by Pulse 98 97 Oximetry O2 Sat by Pulse 98 Oximetry [ Assessment] 11/22/20 11/22/20 11/22/20 09:00 09:33 10:00 Temperature Pulse Rate 103 H 61 97 H Pulse Rate [ From Monitor] Respiratory 20 21 Rate Blood Pressure 112/68 120/70 120/70 O2 Sat by Pulse 98 98 Oximetry O2 Sat by Pulse Oximetry [ Assessment] 11/22/20 11/22/20 11/22/20 11:00 12:00 13:00 Temperature 98.9 F Pulse Rate 96 H 97 H 88 Pulse Rate [ 93 H From Monitor] Respiratory 21 23 20 Rate Blood Pressure 115/68 117/70 117/70 O2 Sat by Pulse 98 98 97 Oximetry O2 Sat by Pulse Oximetry [ Assessment] 11/22/20 11/22/20 11/22/20 13:16 14:00 16:00 Temperature 98.4 F Pulse Rate 105 H Pulse Rate [ From Monitor] Respiratory 43 H Rate Blood Pressure 119/74 O2 Sat by Pulse 98 Oximetry O2 Sat by Pulse 99 Oximetry [ Assessment] 11/22/20 16:26 Temperature Pulse Rate 102 H Pulse Rate [ From Monitor] Respiratory Rate Blood Pressure 113/70 O2 Sat by Pulse Oximetry O2 Sat by Pulse Oximetry [ Assessment] General appearance: Present: no acute distress, well-nourished - EENT Eyes: PERRL, EOM intact ENT: hearing intact, clear oral mucosa Ears: bilateral: normal - Neck Neck: supple, normal ROM - Respiratory Respiratory effort: normal Respiratory: bilateral: CTA - Breasts Breasts: normal - Cardiovascular Heart rate: 78 Rhythm: regular Heart Sounds: Present: S1 & S2. Absent: gallop, rub Extremities: pulses intact, No edema, normal color, Full ROM - Gastrointestinal General gastrointestinal: Present: soft, non-tender, non-distended, normal bowel sounds - Genitourinary Female genitourinary: normal - Integumentary Integumentary: clear, warm, dry - Musculoskeletal Musculoskeletal: generalized weakness - Neurologic Neurologic: other - Psychiatric Psychiatric: other (Unresponsive) - Allied health notes Allied health notes reviewed: nursing, case management - Labs CBC & Chem 7: 11/19/20 05:23 11/13/20 10:05 Labs: Abnormal lab results 11/21/20 11/22/20 11/22/20 Range/Units 23:26 05:24 11:59 POC Glucose 107 H 120 H 111 H (70-105) mg/dL HEART Score - HEART Score Age: < 45 Risk factors: 1-2 risk factors - Critical Actions Critical Actions: >7 pts:50-65% risk of adverse cardiac event. Early invasive measures
[2020-11-22] MEDS: ACETAMINOPHEN 325 MG/10.15 ML ORAL LIQD UNIT DOSE FEEDTUBE PRN (22:05)
[2020-11-23] MEDS: DEXTROSE 10% IN WATER 1,000 ML IV SCH ×2 (00:01→13:53)
[2020-11-23] MEDS: hydrALAZINE 25 MG TAB PO SCH ×3 (05:14→21:00)
--- NOTE | 2020-11-23 08:18 | Progress Note ---
Assessment and Plan - Patient Problems (1) Encephalopathy Current Visit: Yes Status: Acute Plan to address problem: patient remains unchanged clinically hemodynamically stable awaiting [facility] care placement (2) Fever Current Visit: Yes Status: Acute Subjective - Subjective Date of service: 11/23/20 Principal diagnosis: Eclampsia/HELLP Syndrome, ADOLPH, DIC; s/p , s/p supracervical hyst Interval history: 30y/o POD #52 s/p supracervical hysterectomy for eclampsia and DIC. Patient remains unresponsive. Currently afebrile. No significant clinical changes Objective - Vital Signs Latest vital signs: Vital Signs Temp Pulse Pulse Resp BP Pulse Ox Pulse Ox 11/23/20 08:15 99 11/23/20 08:00 98 11/23/20 06:00 117 H 27 H 116/71 99 11/23/20 05:14 100 H 114/69 11/23/20 05:00 102 H 26 H 114/69 100 11/23/20 04:00 98.8 F 108 H 111 H 26 H 97/72 96 11/23/20 03:00 96 H 22 106/61 99 11/23/20 02:00 99 H 23 112/64 98 11/23/20 01:00 107 H 31 H 106/69 98 11/23/20 00:00 98.7 F 104 H 101 H 22 120/63 99 11/22/20 23:06 108 H 34 H 120/63 99 11/22/20 23:00 108 H 40 H 120/63 99 11/22/20 22:07 103 H 123/74 11/22/20 22:05 45 H 11/22/20 22:00 105 H 37 H 123/74 99 11/22/20 21:00 97 H 31 H 110/75 97 11/22/20 20:00 99.4 F 102 H 103 H 23 114/71 99 11/22/20 19:56 102 H 114/71 11/22/20 19:00 104 H 22 106/70 98 11/22/20 18:00 101 H 26 H 109/71 98 11/22/20 17:00 98 H 20 109/71 97 11/22/20 16:26 102 H 113/70 11/22/20 16:00 98.4 F 103 H 93 H 30 H 122/70 98 02/07/21 15:00 87 18 116/69 99 11/22/20 14:00 105 H 43 H 119/74 98 11/22/20 13:16 99 11/22/20 13:00 88 20 117/70 97 11/22/20 12:00 98.9 F 97 H 93 H 23 117/70 98 11/22/20 11:00 96 H 21 115/68 98 11/22/20 10:00 97 H 21 120/70 98 11/22/20 09:33 61 120/70 11/22/20 09:00 103 H 20 112/68 98 Intake and Output 11/22/20 11/23/20 11/23/20 22:59 06:59 14:59 Intake Total 680 680 Output Total 800 400 Balance -120 280 Intake: Intake, Free Water 200 200 Tube Feeding 480 480 Output: Urine 800 400 Void 800 400 Other: Total, Intake Amount 240 60 Total, Output Amount 800 400 Voiding Method External Female Catheter External Female Catheter # Voids Void 1 1 # Bowel Movements 1 1 - Labs Labs: Abnormal lab results 11/22/20 11/22/20 Range/Units 11:59 23:19 POC Glucose 111 H 112 H (70-105) mg/dL
[2020-11-23] MEDS: SODIUM BICARBONATE 650 MG TAB PO SCH ×3 (08:35→20:49)
[2020-11-23] MEDS: TOPIRAMATE TAB 25 MG TAB PO SCH ×2 (09:48→21:00)
[2020-11-23] MEDS: FAMOTIDINE 20 MG TAB PO SCH ×2 (09:48→21:00)
[2020-11-23] MEDS: FUROSEMIDE 40 MG TAB PO SCH (09:49)
[2020-11-23] MEDS: ENOXAPARIN 40 MG/0.4 ML INJ SUB-Q SCH (09:49)
[2020-11-23] MEDS: ACETAMINOPHEN 325 MG/10.15 ML ORAL LIQD UNIT DOSE FEEDTUBE PRN (20:49)
[2020-11-24] MEDS: DEXTROSE 10% IN WATER 1,000 ML IV SCH ×2 (02:21→15:15)
[2020-11-24] MEDS: ACETAMINOPHEN 325 MG/10.15 ML ORAL LIQD UNIT DOSE FEEDTUBE PRN ×2 (06:14→21:06)
[2020-11-24] MEDS: hydrALAZINE 25 MG TAB PO SCH ×3 (06:16→21:06)
--- NOTE | 2020-11-24 07:06 | Progress Note ---
Assessment and Plan Critical care statement The high probability of a clinically significant, sudden or life threatening deterioration of the [MULTIPLE ORGAN] system(s) required my full and direct attention, intervention and personal management. The aggregate critical care time was [33] minutes. This time is in addition to time spent performing reported procedures but includes the following: [X] Data Review and interpretation [X] Patient assessment and monitoring of vital signs [X] Documentation [X] Medication orders and management Assessment and Plan 30 y/o female patient with Eclampsia/help syndrome, s/p emergent section with DIC, hemorrhage, supracervical abdominal hysterectomy, acute respiratory failure , tracheostomy on T-piece with morbid obesity, s/p cardiac arrest 12/08/2019 status post CPR per ACLS, acute hypoxic brain injury Acute kidney injury improved, severe shock requiring pressors, DIC septic shock improved, history of C. difficile colitis completed treatment with vancomycin. Tracheostomy on T-piece, continues to require 5 L of oxygen. Herpetic flareup, ID started treatment with antibiotics, patient is waiting for SNF placement DC planning per case management Assessment and plan: --Persistent hypoglycemia; patient is requiring continuous D10 W infusion CT abdomen done to rule out insulinoma, CT abdomen report negative for pancreatic tumor We will closely monitor --Cardiac arrest; 10/07/2020 ,status post CPR --Acute hypoxic brain injury; Supportive care, closely monitor --Acute hypoxic respiratory failure: Tracheostomy on T-piece , today on 4.5 L oxygen, saturating 100% Supportive care, Pulmonary critical following COVID-19 negative C. difficile positive; Patient on contact isolation Completed treatment --Afebrile: Blood, urine, tracheal aspirate cultures New cultures negative to date Monitor off antibiotics Closely monitor --Sepsis; received antibiotics Continue to monitor off antibiotics ID following --COVID-19 test negative; 10/08/2020 --C. difficile colitis test; positive; 10/16/2020 --Acute metabolic encephalopathy --Acute kidney injury; vasomotor nephropathy Resolved, renal function within normal limits, closely monitor --Shock; monitor of pressors Blood pressures reasonable level --DIC; sepsis, septic shock, resolved --History of preeclampsia; / hemorrhage Status post hysterectomy --History of C. difficile colitis; completed oral vancomycin --DVT/SVT and right upper extremity Very poor prognosis, Consults recommendations noted and appreciated We will closely monitor the patient and adjust management as needed Plan of care reviewed with the patient's nurse. Waiting for half-way facility placement Subjective Date of service: 11/23/20 Principal diagnosis: Eclampsia/HELLP Syndrome, ADOLPH, DIC; s/p , s/p supracervical hyst Interval history: 30 y/o female patient with Eclampsia/help syndrome, s/p emergent section with DIC, hemorrhage, supracervical abdominal hysterectomy, acute respiratory failure , tracheostomy on T-piece with morbid obesity, s/p cardiac arrest 12/08/2019 status post CPR per ACLS, acute hypoxic brain injury Acute kidney injury improved, severe shock requiring pressors, DIC septic shock improved, history of C. difficile colitis on vancomycin. Tracheostomy on T-piece, continues to require 5 L of oxygen. Brief history; 30 year old -[place] female CHE 10/25/20 at 36w5d who presents with seizures in triage on 10/02/20. Pt was not able to provide history but per pt's , she presented to the hospital to return a 24 hour urine specimen for analysis. She then suddenly reported that she did not feel good. She was taken to labor and delivery and shortly after arrival, she began seizing. During this time, a code met was called because the patient became hypoxic. She was then noted to be without a pulse. Chest compressions were started immediately, and the patient was emergently taken to the operating room for delivery of the fetus. Off note, This patient has had care at [facility] with comanagement by [facility] since 11 wks complicated by ADHD, morbid obesity, genera lized anxiety disorder, panic attacks, chronic narcotic use, fibromyalgia, GERD, Irritable Bowel Syndrome, Migraines, h/o endometrial ablation and ovarian vein embolization, genital herpes, insomnia, LGA fetus, nausea and vomiting, polyhydramnios, quad screen positive for Down's Syndrome, and previous x 3. She is GBS negative. , Patient tracheostomy on ventilatory support, unable to wean, continue supportive care poor prognosis 11:30: Pt brought to L&D triage for evaluation of possible labor. Pt accompanied by her spouse. Pt spouse poor historian; unable to obtain history- allergies at this time. Pt taken from registration to triage area via WC. Pt unresponsive, actively seizing with snorous respirations. car sweeper, Kassy, called and requesting assistance. 11:35: Multiple staff at bedside. Pt 02 sat 67% on nonrebreather, unable to read BP . Yifan Theodore CRNA, at bedside for intubation and assistance with IV insertion. INT attempt by multiple RNs unsuccessful at this time. 11:42: Pt being bagged by KORIN, 02% 79%. No pulse palpated, compressions on at this time; bharati young called and Dr. Newberry preparing OR for emergent c/s. 11:44: Continued compressions on stretcher while transporting pt to OR 1. Pt being bagged with jaw thrust manuever in place by KORIN Stringer student. 11:45: Arrival to OR 1. Dr. Newberry and Dr. Portillo present for emergent c/s. Bharati team arrived for continued care. patient revived and c/s done Patient has been bleeding from C/s site followed by supracervical hysterectomy for severe bleeding, Patient transfused multiple units of PRBC, Patient in DIC. Patient transferred to the ICU Hospital course; 10/03. Patient seen and examined at bedside this morning. Patient is nonresponsive and mechanically ventilated. On pressors. Labs reviewed-has leukocytosis, anemia, thrombocytopenia, ADOLPH and lactic acidosis. Started on IV antibiotics to cover possible sepsis secondary to DIC. Hematology oncology recommendations appreciated-needs additional cryoprecipitate and FFP. Monitor D-dimer, fibrinogen and frequent labs. Nephrology consulted for lactic acidosis and ADOLPH. 10/04. Remains mechanically ventilated. Kevin antibiotics. Labs shows improved acidosis - lactic acid 3.5. Hb drop noted. Getting transfused 2 units PRBCs. Platelet count is ~40k. Continue to monitor labs closely. Critical care team on board. 10/05; xray reviewed, concerning for multifocal infilrate, likely underlying Pneumonia, will add ID consult to assist with management of this critically ill patient, start tube feed, closely monitor renal system 10/06: Resumed care, remains on mechanical ventilation. No active bleeding, H&H stable. Continue to monitor CBC and BMP. Continue IV antibiotic for underlying pneumonia. Follow critical care and ID recommendation. 10/07: Remains on mechanical ventilation. No active bleeding, H&H stable. Critical care following, wean off ventilation as tolerated. 10/08: Patient had another cardiac arrest last night. Remains on mechanical ventilation, update family. Continue supportive care -poor prognosis 10/09: Called patient mother and discussed about patient care and management. Answered all question to best of my knowledge and family satisfaction. Patient remains on mechanical ventilation, cardiac arrest x2 so far. Critically sick, poor prognosis 10/10: remains on mechanical ventilation. h/h stable, no active bleeding. monitor CBC/BMP 10/11: WBC trended up with diarrhea, started on vancomycin po. remains on MV, off pressor, tolerating TF 10/12: remains on MV, off pressor, tolerating TF. called family for update but unable to reach, could not leave message as it was full. cont supportive care, wean off vent as tolerated. 10/13/2020; patient is on mechanical ventilation, tolerating tube feeding. Patient has labored breathing. Neuro was consulted and recommend MRI. Patient is on Precedex. Rectal tube in place. 10/14/2020; patient is on mechanical ventilation, Precedex. Patient had fever and blood culture ordered. Patient is on IV vancomycin per ID recommendation. Neuro consulted and recommend MRI. Continue to monitor. Prognosis is guarded. 10/15/2020; patient is on mechanical ventilation, Precedex. Patient had fever and blood culture ordered. Patient is on IV vancomycin per ID recommendation. Neuro consulted and recommend MRI. Continue to monitor. Prognosis is guarded. 12: Remains with C.DIFF and Bactermia, Poor prognosis. No purposeful movement. MRI and EEG discussed with Intensvisit, Continue aggressive BP control. 3: Blood pressure better controlled MRI done 10/15 shows mild improvement in edema. We will continue to monitor mother was at bedside yesterday. Nursing documentation trach and PEG discussed with the mother including goals of care. She is still in denial about the gravity of her daughters her condition which is understandable considering her age. Continue aggressive management at this time. Await for bacteremia to clear by ID before placing PICC line. 10/19: Patient for possible PEG and Trach, ID following, repeat cultures remain n egative. Poor prognosis 10/20: Pt noted to DVT and SVT in the RUE, Vascular consult and will also obtain Hematology for possible considering changing in Anticoagulation. CONTINUE TO MONITOR H/H and PLT. Family updated by [employer]. Heparin gtt started. Will check CBC and BMP 10/21: Continue supporive care, Diarrhea now resolving, But still with persistent Fever, May need repeat CT/AP per ID, still with profused Encephalopathy 10/22: Continue supportive care, weaning, awaiting repeat Imaging. FOLLOW Fever curve. Enoxparin restarted 10/23: Continue supportive care, wean as tolerated. 10/24; Started on CPAP trial, discussed with pulmonary, still with diarrhea. 10/25: Patients seen and examined, no clinical changes, still with diarrhea. ?meaningful recovery. 10/26: Clinically unchanged, continue CPAP trial, Will discuss with Neurology about re-evaluation, ?Need for repeat CT head. ?PRESS considering initial elevated BP, now stable. 10/27; tracheostomy on vent, weaning trials, vital signs noted, poor prognosis 10/28; unable to wean, tracheostomy on vent. Sepsis. Continue current management. Consults and recommendations noted and appreciated 10/30/2020;Patient on T-piece 5 L of oxygen not in acute distress, noncommunicative 11/02/2020; patient on T-piece 5 L of oxygen 11/03/2020; patient's fever slightly improved low-grade, continue current management, remains on T-piece with 5 L of oxygen 11/04/2020; T-max last 24 hours 100.3 F, new cultures negative to date, monitor off antibiotics Patient is off Levophed, blood pressures reasonable level, tracheostomy on T- piece 3 to 5 L nasal cannula oxygen 11/05/2020; tracheostomy on T-piece patient remains on 5 L of nasal cannula oxygen, unresponsive severe hypoxic brain injury I called patient's mother Ms. Pamela Bassett as well as patient's spouse Mr. Danilo Dimas at [phone] unable to reach them Left voicemail on Ms. Pamela Bassettz phone and encouraged him to call back 11/06/2020; I tried to call again today Ms. Pamela Bassett to discuss patient's condition and treatment plan and update consultants recommendations and patient's prognosis., unable to reach her 11/07/20 Will try LTAC/Hospice 11/08/20 Same condition 11/09/2020 Same condition 11/10/2020; family conference was held by case management yesterday 11/09/2020, family decided and agreed for SNF placement 11/11/2020; patient seen and examined, clinically no change tracheostomy on 5 L of nasal cannula oxygen, hemodynamically and clinically stable for discharge To LTAC versus SNF, DC planning per case management 11/12/2020; clinically no change, continue current management, DC planning per case management possible SNF placement 11/13/2020; patient is receiving herpes flareup treatment per ID 11/14/2020; clinically no change, awaiting SNF placement 11/15/2020; clinically no change, tracheostomy on T-piece on 5 L oxygen, awaiting placement 11/16/2020; patient awaiting placement 11/18/2020; abdominal CT scan negative for insulinoma or pancreatic tumor ,clinically no change Awaiting SNF placement 11/19/2020; remains on 4 L of oxygen tracheostomy via T-piece, awaiting SNF placement 11/20/2020 Awaiting SNF placement 11/21/2020 Waiting for SNF placement 11/22/2020 Waiting for placement 11/23/2020 Waiting for placement Objective - Exam Narrative Exam: Patient with tracheostomy - Constitutional Vitals: Vital Signs - 12hr 11/23/20 11/23/20 11/23/20 19:50 20:00 20:35 Temperature 98.6 F Pulse Rate 96 H 105 H Respiratory 21 Rate Blood Pressure 126/68 O2 Sat by Pulse 99 97 Oximetry O2 Sat by Pulse Oximetry [ Assessment] 11/23/20 11/23/20 11/23/20 20:49 20:50 21:00 Temperature Pulse Rate 111 H 107 H Respiratory 47 H 27 H Rate Blood Pressure 126/48 118/71 O2 Sat by Pulse 99 Oximetry O2 Sat by Pulse Oximetry [ Assessment] 11/23/20 11/23/20 11/23/20 21:49 22:00 23:00 Temperature Pulse Rate 100 H 93 H Respiratory 22 11 L 20 Rate Blood Pressure 118/71 104/55 O2 Sat by Pulse 97 98 Oximetry O2 Sat by Pulse Oximetry [ Assessment] 11/23/20 11/23/20 11/24/20 23:08 23:50 00:00 Temperature 99.8 F H Pulse Rate 100 H 90 110 H Respiratory 23 13 Rate Blood Pressure 104/55 104/55 O2 Sat by Pulse 99 97 Oximetry O2 Sat by Pulse Oximetry [ Assessment] 11/24/20 11/24/20 11/24/20 01:00 02:00 03:00 Temperature Pulse Rate 97 H 103 H 94 H Respiratory 15 16 15 Rate Blood Pressure 121/65 119/62 106/62 O2 Sat by Pulse 96 99 98 Oximetry O2 Sat by Pulse Oximetry [ Assessment] 11/24/20 11/24/20 11/24/20 04:00 05:00 05:39 Temperature 99.0 F Pulse Rate 108 H 94 H Respiratory 20 15 Rate Blood Pressure 106/62 115/56 O2 Sat by Pulse 97 98 99 Oximetry O2 Sat by Pulse 99 Oximetry [ Assessment] 11/24/20 11/24/20 06:14 06:16 Temperature Pulse Rate 98 H Respiratory 21 Rate Blood Pressure 97/64 O2 Sat by Pulse Oximetry O2 Sat by Pulse Oximetry [ Assessment] General appearance: Present: no acute distress, well-nourished - EENT Eyes: PERRL, EOM intact ENT: hearing intact, clear oral mucosa Ears: bilateral: normal - Neck Neck: supple, normal ROM - Respiratory Respiratory effort: normal Respiratory: bilateral: CTA - Breasts Breasts: normal - Cardiovascular Heart rate: 78 Rhythm: regular Heart Sounds: Present: S1 & S2. Absent: gallop, rub Extremities: pulses intact, No edema, normal color, Full ROM - Gastrointestinal General gastrointestinal: Present: soft, non-tender, non-distended, normal bowel sounds - Genitourinary Female genitourinary: normal - Integumentary Integumentary: clear, warm, dry - Musculoskeletal Musculoskeletal: generalized weakness - Neurologic Neurologic: other (Unresponsive) - Psychiatric Psychiatric: other (Unresponsive) - Labs CBC & Chem 7: 11/19/20 05:23 11/13/20 10:05 Labs: Abnormal lab results 11/23/20 11/24/20 Range/Units 23:42 05:33 POC Glucose 111 H 108 H (70-105) mg/dL HEART Score - HEART Score Age: < 45 Risk factors: 1-2 risk factors - Critical Actions Critical Actions: >7 pts:50-65% risk of adverse cardiac event. Early invasive measures
--- NOTE | 2020-11-24 08:49 | Progress Note ---
Assessment and Plan Assessment and plan: 30 y/o female patient with Eclampsia/help syndrome, s/p emergent section with DIC, hemorrhage, supracervical abdominal hysterectomy, acute respiratory failure , tracheostomy on T-piece with morbid obesity, s/p cardiac arrest 12/08/2019 status post CPR per ACLS, acute hypoxic brain injury Acute kidney injury improved, severe shock requiring pressors, DIC septic shock improved, history of C. difficile colitis completed treatment with vancomycin. Tracheostomy on T-piece, continues to require 5 L of oxygen. Herpetic flareup, ID started treatment with antibiotics, patient is waiting for SNF placement DC planning per case management Assessment and plan: --Persistent hypoglycemia; patient is requiring continuous D10 W infusion CT abdomen done to rule out insulinoma, CT abdomen report negative for pancreatic tumor We will closely monitor --Cardiac arrest; 10/07/2020 ,status post CPR --Acute hypoxic brain injury; Supportive care, closely monitor --Acute hypoxic respiratory failure: Tracheostomy on T-piece , today on 4.5 L oxygen, saturating 100% Supportive care, Pulmonary critical following COVID-19 negative C. difficile positive; Patient on contact isolation Completed treatment --Sepsis; received antibiotics Continue to monitor off antibiotics ID following --COVID-19 test negative; 10/08/2020 --C. difficile colitis test; positive; 10/16/2020 --Acute metabolic encephalopathy --Acute kidney injury; vasomotor nephropathy Resolved, renal function within normal limits, closely monitor --Shock; monitor of pressors Blood pressures reasonable level --DIC; sepsis, septic shock, resolved --History of preeclampsia; / hemorrhage Status post hysterectomy --History of C. difficile colitis; completed oral vancomycin --DVT/SVT and right upper extremity Very poor prognosis, Consults recommendations noted and appreciated We will closely monitor the patient and adjust management as needed Plan of care reviewed with the patient's nurse. Patient is clinically stable Pending placement,discharge to SNF when placement is processed Plan of care reviewed with the patient's nurse Critical care statement The high probability of a clinically significant, sudden or life threatening deterioration of the [MULTIPLE ORGAN] system(s) required my full and direct attention, intervention and personal management. The aggregate critical care time was [33] minutes. This time is in addition to time spent performing reported procedures but includes the follo wing: [X] Data Review and interpretation [X] Patient assessment and monitoring of vital signs [X] Documentation [X] Medication orders and management History Interval history: I have seen and examined the patient at the bedside this morning in ICU Patient's chart current medications tests and reports reviewed Patient is awake, noncommunicative, tracheostomy on T-piece on 5 L oxygen Slightly agitated Vital signs noted Hospitalist Physical - Constitutional Vitals: Temp Pulse Resp BP Pulse Ox 99.2 F 101 H 20 102/66 99 11/24/20 08:00 11/24/20 07:00 11/24/20 07:14 11/24/20 07:00 11/24/20 07:00 General appearance: Present: no acute distress, well-nourished, obese, other (Noncommunicative) - EENT Eyes: Present: PERRL, EOM intact ENT: other (Tracheostomy T-piece on 5 L oxygen) - Neck Neck: Present: supple, normal ROM - Respiratory Respiratory effort: normal Respiratory: bilateral: diminished, rhonchi, negative: rales, wheezing - Cardiovascular Rhythm: regular Heart Sounds: Present: S1 & S2 - Extremities Extremities: no ischemia, No edema, abnormal (Obese) - Abdominal General gastrointestinal: soft, non-tender, non-distended, normal bowel sounds, other (PEG tube in place) - Integumentary Integumentary: Present: clear, warm - Psychiatric Psychiatric: other (Noncommunicative) - Neurologic Neurologic: other (Noncommunicative) HEART Score - HEART Score Age: < 45 Risk factors: 1-2 risk factors - Critical Actions Critical Actions: >7 pts:50-65% risk of adverse cardiac event. Early invasive measures Results - Labs CBC & Chem 7: 11/19/20 05:23 11/13/20 10:05 Labs: Laboratory Last Values WBC 10.2 K/mm3 (4.5-11.0) 11/07/20 04:44 RBC 3.88 M/mm3 (3.65-5.03) 11/07/20 04:44 Hgb 11.1 gm/dl (10.1-14.3) 11/19/20 05:23 Hgb Comment See scanned result 10/04/20 Unknown Hct 34.5 % (30.3-42.9) 11/19/20 05:23 MCV 84 fl (79-97) 11/07/20 04:44 MCH 28 pg (28-32) 11/07/20 04:44 MCHC 34 % (30-34) 11/07/20 04:44 RDW 16.6 % (13.2-15.2) H 11/07/20 04:44 Plt Count 259 K/mm3 (140-440) 11/07/20 04:44 Lymph % (Auto) 15.2 % (13.4-35.0) 11/07/20 04:44 Sherman % (Auto) 13.1 % (0.0-7.3) H 11/07/20 04:44 Eos % (Auto) 2.5 % (0.0-4.3) 11/07/20 04:44 Baso % (Auto) 0.6 % (0.0-1.8) 11/07/20 04:44 Lymph # (Auto) 1.6 K/mm3 (1.2-5.4) 11/07/20 04:44 Sherman # (Auto) 1.3 K/mm3 (0.0-0.8) H 11/07/20 04:44 Eos # (Auto) 0.3 K/mm3 (0.0-0.4) 11/07/20 04:44 Baso # (Auto) 0.1 K/mm3 (0.0-0.1) 11/07/20 04:44 Add Manual Diff Complete 10/29/20 07:56 Total Counted 100 10/29/20 07:56 Seg Neutrophils % 68.6 % (40.0-70.0) 11/07/20 04:44 Seg Neuts % (Manual) 80.0 % (40.0-70.0) H 10/29/20 07:56 Band Neutrophils % 2.0 % 10/15/20 05:50 Lymphocytes % (Manual) 15.0 % (13.4-35.0) 10/29/20 07:56 Reactive Lymphs % (Man) 1.0 % 10/02/20 12:18 Monocytes % (Manual) 4.0 % (0.0-7.3) 10/29/20 07:56 Eosinophils % (Manual) 1.0 % (0.0-4.3) 10/29/20 07:56 Myelocytes % 2.0 % 10/02/20 13:05 Metamyelocytes % 1.0 % 10/14/20 04:00 Nucleated RBC % Not Reportable 10/29/20 07:56 Seg Neutrophils # 7.0 K/mm3 (1.8-7.7) 11/07/20 04:44 Seg Neutrophils # Man 10.9 K/mm3 (1.8-7.7) H 10/29/20 07:56 Band Neutrophils # 0.0 K/mm3 10/29/20 07:56 Lymphocytes # (Manual) 2.0 K/mm3 (1.2-5.4) 10/29/20 07:56 Abs React Lymphs (Man) 0.0 K/mm3 10/29/20 07:56 Monocytes # (Manual) 0.5 K/mm3 (0.0-0.8) 10/29/20 07:56 Eosinophils # (Manual) 0.1 K/mm3 (0.0-0.4) 10/29/20 07:56 Basophils # (Manual) 0.0 K/mm3 (0.0-0.1) 10/29/20 07:56 Metamyelocytes # 0.0 K/mm3 10/29/20 07:56 Myelocytes # 0.0 K/mm3 10/29/20 07:56 Promyelocytes # 0.0 K/mm3 10/29/20 07:56 Blast Cells # 0.0 K/mm3 10/29/20 07:56 WBC Morphology Not Reportable 10/29/20 07:56 Hypersegmented Neuts Not Reportable 10/29/20 07:56 Hyposegmented Neuts Not Reportable 10/29/20 07:56 Hypogranular Neuts Not Reportable 10/29/20 07:56 Smudge Cells Not Reportable 10/29/20 07:56 Toxic Granulation Not Reportable 10/29/20 07:56 Toxic Vacuolation Not Reportable 10/29/20 07:56 Dohle Bodies Not Reportable 10/29/20 07:56 Pelger-Huet Anomaly Not Reportable 10/29/20 07:56 Ester Rods Not Reportable 10/29/20 07:56 Platelet Estimate Consistent w auto 10/29/20 07:56 Clumped Platelets Not Reportable 10/29/20 07:56 Plt Clumps, EDTA Not Reportable 10/29/20 07:56 Large Platelets Few 10/29/20 07:56 Giant Platelets Not Reportable 10/29/20 07:56 Platelet Satelliting Not Reportable 10/29/20 07:56 Plt Morphology Comment Not Reportable 10/29/20 07:56 RBC Morphology Not Reportable 10/29/20 07:56 Dimorphic RBCs Not Reportable 10/29/20 07:56 Polychromasia Rare 10/29/20 07:56 Hypochromasia Few 10/29/20 07:56 Poikilocytosis Not Reportable 10/29/20 07:56 Anisocytosis Not Reportable 10/29/20 07:56 Microcytosis Not Reportable 10/29/20 07:56 Macrocytosis Not Reportable 10/29/20 07:56 Spherocytes Not Reportable 10/29/20 07:56 Pappenheimer Bodies Not Reportable 10/29/20 07:56 Sickle Cells Not Reportable 10/29/20 07:56 Target Cells Few 10/29/20 07:56 Tear Drop Cells Not Reportable 10/29/20 07:56 Ovalocytes Not Reportable 10/29/20 07:56 Stomatocytes Few 10/14/20 04:00 Helmet Cells Not Reportable 10/29/20 07:56 [place] Bodies Not Reportable 10/29/20 07:56 [place] Rings Not Reportable 10/29/20 07:56 [place] Cells Not Reportable 10/29/20 07:56 Bite Cells Not Reportable 10/29/20 07:56 Crenated Cell Not Reportable 10/29/20 07:56 Elliptocytes Not Reportable 10/29/20 07:56 Acanthocytes (Spur) Not Reportable 10/29/20 07:56 Rouleaux Not Reportable 10/29/20 07:56 Hemoglobin C Crystals Not Reportable 10/29/20 07:56 Schistocytes Not Reportable 10/29/20 07:56 Malaria parasites Not Reportable 10/29/20 07:56 Sickle Cell Solubility See scanned result 10/04/20 Unknown Hemoglobin A See scanned result 10/04/20 Unknown Hemoglobin A2 See scanned result 10/04/20 Unknown Hemoglobin A2 Prime See scanned result 10/04/20 Unknown Hemoglobin C See scanned result 10/04/20 Unknown Hemoglobin D See scanned result 10/04/20 Unknown Hemoglobin E See scanned result 10/04/20 Unknown Hgb F Diffential Stain See scanned result 10/04/20 Unknown Hemoglobin F Quant See scanned result 10/04/20 Unknown Hemoglobin G See scanned result 10/04/20 Unknown Hemoglobin S See scanned result 10/04/20 Unknown Hemoglobin O-Tolar See scanned result 10/04/20 Unknown Hemoglobin [place] See scanned result 10/04/20 Unknown Hemoglobin Analilia See scanned result 10/04/20 Unknown Variant Hemoglobin See scanned result 10/04/20 Unknown Abnorm Hgb IEF Confirm See scanned result 10/04/20 Unknown Hemoglobin Interpret See scanned result 10/04/20 Unknown Hemoglobinopathy Note See scanned result 10/04/20 Unknown Sharad Bodies Not Reportable 10/29/20 07:56 Hem Pathologist Commnt No 10/29/20 07:56 PT 13.6 Sec. (12.2-14.9) 10/21/20 13:54 INR 1.06 (0.87-1.13) 10/21/20 13:54 APTT 31.6 Sec. (24.2-36.6) 10/03/20 00:40 Fibrinogen 336 mg/dl (211-480) 10/04/20 10:00 D-Dimer 1974.47 ng/mlDDU (0-234) H 11/11/20 13:50 ABG pH 7.459 pH Units (7.350-7.450) H 10/26/20 10:30 POC ABG pCO2 20.7 mmHg (32.0-48.0) L 10/13/20 07:18 ABG pCO2 32.4 mm Hg 10/26/20 10:30 POC ABG pO2 137.9 mmHg (83-108) H 10/13/20 07:18 ABG pO2 112.2 mm Hg (80.0-90.0) H 10/26/20 10:30 POC ABG HCO3 14.8 10/13/20 07:18 ABG HCO3 22.5 mmol/L (20.0-26.0) 10/26/20 10:30 ABG O2 Saturation 98.2 % (95.0-99.0) 10/26/20 10:30 ABG O2 Content 18.5 (0.0-44) 10/26/20 10:30 POC ABG Base Excess -6.9 10/13/20 07:18 ABG Base Excess -0.6 mmol/L (-2.0-3.0) 10/26/20 10:30 ABG Hemoglobin 13.5 gm/dl (12.0-16.0) 10/26/20 10:30 ABG Oxyhemoglobin 98.3 (94-98) H 10/13/20 07:18 ABG Carboxyhemoglobin 1.3 % (0.0-5.0) 10/26/20 10:30 ABG Methemoglobin 0.5 % (0.0-1.5) 10/26/20 10:30 ABG Sodium 135.9 mmol/L (136.0-145.0) L 10/13/20 07:18 ABG Potassium 3.7 mmol/L (3.40-4.50) 10/13/20 07:18 ABG Chloride 111.0 mmol/L (98-107) H 10/13/20 07:18 ABG Glucose 109 mg/dL (65-95) H 10/13/20 07:18 VBG pH 6.949 (7.320-7.420) L* 10/02/20 Unknown Oxyhemoglobin 96.5 % (95.0-99.0) 10/26/20 10:30 Carboxyhemoglobin 0.3 (0.5-1.5) L 10/13/20 07:18 FiO2 25 % 10/26/20 10:30 Sodium 138 mmol/L (137-145) 11/13/20 10:05 Potassium 4.3 mmol/L (3.6-5.0) 11/13/20 10:05 Chloride 101.7 mmol/L (98-107) 11/13/20 10:05 Carbon Dioxide 23 mmol/L (22-30) 11/13/20 10:05 Anion Gap 18 mmol/L 11/13/20 10:05 BUN 14 mg/dL (7-17) 11/13/20 10:05 Creatinine 0.6 mg/dL (0.6-1.2) 11/13/20 10:05 Estimated GFR > 60 ml/min 11/13/20 10:05 BUN/Creatinine Ratio 23 % 11/13/20 10:05 Glucose 114 mg/dL (65-100) H 11/13/20 10:05 POC Glucose 108 mg/dL (70-105) H 11/24/20 05:33 Random Insulin 43.2 uIU/mL (<=19.6) H 11/02/20 19:19 Proinsulin See scanned result 11/02/20 19:19 C-Peptide 6.23 ng/mL (0.80-3.85) H 11/02/20 19:19 Lactic Acid 1.90 mmol/L (0.7-2.0) 10/04/20 22:00 Uric Acid 7.5 mg/dL (3.5-7.6) 10/02/20 13:05 Calcium 9.7 mg/dL (8.4-10.2) 11/13/20 10:05 Ionized Calcium 4.4 mg/dL (4.8-5.6) L 10/07/20 21:00 Phosphorus 4.60 mg/dL (2.5-4.5) H 11/13/20 10:05 Magnesium 2.10 mg/dL (1.7-2.3) 11/13/20 10:05 Total Bilirubin 0.50 mg/dL (0.1-1.2) 11/04/20 05:00 AST 90 units/L (5-40) H 11/04/20 05:00 ALT 36 units/L (7-56) 11/04/20 05:00 Alkaline Phosphatase 122 units/L (35-129) 11/04/20 05:00 Lactate Dehydrogenase 769 units/L (91-180) H 10/02/20 13:05 C-Reactive Protein 0.70 mg/dL (0.00-1.30) 11/11/20 13:50 NT-Pro-B Natriuret Pep 2788 pg/mL (0-450) H 10/04/20 10:00 Total Protein 7.4 g/dL (6.3-8.2) 11/04/20 05:00 Albumin 3.8 g/dL (3.9-5) L 11/04/20 05:00 Albumin/Globulin Ratio 1.1 % 11/04/20 05:00 Procalcitonin < 0.05 ng/mL (<0.15) 11/11/20 13:50 Arterial Blood Glucose 109 mg/dL (65-95) H 10/13/20 07:18 Arterial Blood Ionized Calcium 4.6 mg/dL (4.6-5.3) 10/13/20 07:18 Urine Color Yellow (Yellow) 11/11/20 13:50 Urine Turbidity Cloudy (Clear) 11/11/20 13:50 Urine pH 6.0 (5.0-7.0) 11/11/20 13:50 Ur Specific [place] 1.013 (1.003-1.030) 11/11/20 13:50 Urine Protein 100 mg/dl mg/dL (Negative) 11/11/20 13:50 Urine Glucose (UA) Neg mg/dL (Negative) 11/11/20 13:50 Urine Ketones Neg mg/dL (Negative) 11/11/20 13:50 Urine Blood Mod (Negative) 11/11/20 13:50 Urine Nitrite Pos (Negative) 11/11/20 13:50 Urine Bilirubin Neg (Negative) 11/11/20 13:50 Urine Urobilinogen 2.0 mg/dL (<2.0) 11/11/20 13:50 Ur Leukocyte Esterase Lg (Negative) 11/11/20 13:50 Urine WBC (Auto) > 182.0 /HPF (0.0-6.0) H 11/11/20 13:50 Urine RBC (Auto) > 182.0 /HPF (0.0-6.0) 11/11/20 13:50 U Epithel Cells (Auto) 1.0 /HPF (0-13.0) 11/11/20 13:50 Urine Bacteria (Auto) 4+ /HPF (Negative) 11/11/20 13:50 Urine WBC Clumps 3+ /HPF 11/11/20 13:50 Calcium Oxalate Crystal Few 11/11/20 13:50 Urine Mucus Few /HPF 11/11/20 13:50 Vancomycin Trough 12.6 ug/mL (5.0-20.0) 10/21/20 13:54 Random Vancomycin 10.7 ug/mL (0-40.0) 10/16/20 13:09 Phenytoin 5.7 ug/mL (10.0-20.0) L 10/13/20 07:00 C. difficile Tox (PCR) Positive (Negative) 10/16/20 10:22 Coronavirus (PCR) Negative (Negative) 10/08/20 14:15 Blood Type O POSITIVE 10/02/20 12:50 Antibody Screen Negative 10/02/20 12:50 Crossmatch See Detail 10/02/20 12:50 - Diagnostic Impressions Diagnostic Impressions: Echocardiogram 10/03/20 13:42 Transthoracic Echocardiogram Indication: S/P Cardiac Arrest R/O Cardiomyopathy BP: 133/71 Conclusions *Global left ventricular systolic function is normal. *The estimated ejection fraction is 60-65%. *There is trace of mitral regurgitation. *The right 0heart chambers are both slightly dilated. *There is mild tricuspid regurgitation. *There is mild-moderate pulmonary hypertension. *The right ventricular systolic pressure is calculated at 44 mmHg. *The study quality is technically difficult. Findings Procedure Info: The study quality is technically difficult. The study is technically limited due to patient body habitus. The study was technically limited due to the patient's inability to lay in the left lateral decubitus position. Left Ventricle: The left ventricular chamber size is normal. There is no left ventricular hypertrophy. Global left ventricular systolic function is normal. The estimated ejection fraction is 60-65%. Left Atrium: The left atrial chamber size is normal. Right Ventricle: The right ventricle is slightly dilated. Right Atrium: The right atrium is mildly dilated. Aortic Valve: The aortic valve leaflets are mildly thickened. There is no evidence of aortic regurgitation. There is no evidence of aortic stenosis. Mitral Valve: The mitral valve leaflets are mildly thickened. There is trace of mitral regurgitation. There is no evidence of mitral stenosis. Tricuspid Valve: There is mild tricuspid regurgitation. The right ventricular systolic pressure is calculated at 44 mmHg. There is evidence of mild pulmonary hypertension. Pulmonic Valve: There is trace pulmonic regurgitation. Pericardium: There is no pericardial effusion. Aorta: There is no dilatation of the ascending aorta. There is no dilatation of the aortic root. Venous: The inferior vena cava is dilated. Measurements Chambers 2D Name Value Normal Range IVSd (2D) 1 cm (0.6 - 1.1) LVPWd (2D) 1.01 cm (0.6 - 1.1) LVIDd (2D) 4.58 cm (3.7 - 5.6) LVIDs (2D) 3.17 cm (2 - 3.8) LV FS (2D) 30.93 % - EF Teichholz (2D) 58.66 % - Ao root diameter (2D) 2.94 cm (2 - 3.7) Volumes/Mass Name Value Normal Range LA ESV SP 4CH (A/L) 72.82 ml - LA ESV SP 2CH (A/L) 66.86 ml - LA ESV BP (A/L) 74.49 ml - LA ESV SP 4CH (MOD) 71.03 ml - LA ESV SP 2CH (MOD) 64.3 ml - LV EDV SP 4CH (MOD) 98.82 ml - LV ESV SP 4CH (MOD) 24.8 ml - EF SP 4CH (MOD) 74.9 % - LV EDV SP 2CH (MOD) 86.1 ml - LV ESV SP 2CH (MOD) 36.93 ml - EF SP 2CH (MOD) 57.11 % - LV EDV BP 94.4 ml - LV ESV BP 32.66 ml - BP EF (MOD) 65.4 % - Diastolic/Systolic Function Name Value Normal Range MV E-wave Vmax 1.04 m/sec - MV deceleration time 160.46 msec - MV A-wave Vmax 0.92 m/sec - MV E:A ratio 1.14 ratio - Aortic Valve Name Value Normal Range AV Vmax 2.12 m/sec - AV VTI 22.37 cm - AV peak gradient 17.95 mmHg - AV mean gradient 7.29 mmHg - LVOT diameter 2.01 cm - LVOT Vmax 1.8 m/sec - LVOT VTI 27.17 cm - LVOT peak gradient 12.91 mmHg - LVOT mean gradient 6.83 mmHg - SV LVOT 86.42 ml - ANITA (continuity Vmax) 2.7 cm2 - ANITA (continuity VTI) 3.86 cm2 - Ascending Ao 3.18 cm - Tricuspid Valve Name Value Normal Range TV E-wave Vmax 0.88 m/sec - TR Vmax 3.01 m/sec - TR peak gradient 36.27 mmHg - RAP 8 mmHg - RVSP 44 mmHg - IVC diameter 2.65 cm (1.2 - 2.3) Pulmonic Valve/Qp:Qs Name Value Normal Range PV Vmax 1.22 m/sec - PV peak gradient 5.91 mmHg - RVOT Vmax 0.87 m/sec - RVOT VTI 13.32 cm - RVOT peak gradient 3 mmHg - PV acceleration time 110.37 msec - [place]/IV: Voiding Method External Female Catheter IV Catheter Type [Right Foot] INT / Saline Lock IV Catheter Type [Left Forearm Peripheral IV ] IV Catheter Type [Left Wrist] INT / Saline Lock IV Catheter Type [Right Hand] INT / Saline Lock IV Catheter Type [Right INT / Saline Lock Antecubital] IV Catheter Type [Right Upper Mid-line arm] IV Catheter Type [Left Triple Lumen Cath Internal Jugular] IV Catheter Type [Left Hand] Peripheral IV IV Catheter Type [Left Peripheral IV Antecubital] Active Medications - Current Medications Current Medications: Generic Name Dose Route Start Last Admin Trade Name Freq PRN Reason Stop Dose Admin Acetaminophen 650 mg 10/05/20 16:34 11/24/20 06:14 Acetaminophen 325 Mg/10.15 Ml Oral Liqd Unit Dose FEEDTUBE 650 mg Q6H PRN Administration Non Cardiac Pain or Temp>100.5 Albuterol 2.5 mg 11/05/20 13:03 11/06/20 13:04 Albuterol 2.5 Mg/3 Ml Nebu IH 2.5 mg Q4HRT PRN Administration Shortness Of Breath Lipase/Protease/Amylase 1 each 10/05/20 11:09 Lipase 10,500/Protease 25,000/Amylase 43,750 (Units) Dr Barakat FEEDTUBE PRN PRN For Clogged Feeding Tube Enoxaparin Sodium 40 mg 10/22/20 10:00 11/23/20 09:49 Enoxaparin 40 Mg/0.4 Ml Inj SUB-Q 40 mg DAILY ERINN Administration Protocol Famotidine 20 mg 10/07/20 10:00 11/23/20 21:00 Famotidine 20 Mg Tab PO 20 mg BID ERINN Administration Furosemide 40 mg 10/17/20 10:00 11/23/20 09:49 Furosemide 40 Mg Tab PO 40 mg QDAY ERINN Administration Hydralazine HCl 20 mg 10/07/20 11:49 10/17/20 07:20 Hydralazine 20 Mg/1 Ml Inj IV 20 mg Q6H PRN Administration SBP >170 Hydralazine HCl 50 mg 10/17/20 09:00 11/24/20 06:16 Hydralazine 25 Mg Tab PO Not Given Q8HR ERINN Dextrose 1,000 mls @ 75 mls/hr 10/13/20 11:00 11/24/20 02:21 D10w IV 75 mls/hr DIRECT ERINN Administration Labetalol HCl 300 mg 11/16/20 17:00 11/23/20 20:50 Labetalol 200 Mg Tab PO 300 mg TID ERINN Administration Simple Syrup 15 ml 10/05/20 11:09 Simple Syrup 15 Ml FEEDTUBE PRN PRN Hypoglycemia Simple Syrup 30 ml 10/05/20 11:09 Simple Syrup 15 Ml FEEDTUBE PRN PRN Hypoglycemia Sodium Bicarbonate 325 mg 10/05/20 11:09 11/16/20 16:54 Sodium Bicarbonate 325 Mg Tab FEEDTUBE 325 mg PRN PRN Administration For Clogged Feeding Tube Sodium Bicarbonate 1,300 mg 10/13/20 14:00 11/23/20 20:49 Sodium Bicarbonate 650 Mg Tab PO 1,300 mg TID ERINN Administration Topiramate 50 mg 10/05/20 11:00 11/23/20 21:00 Topiramate Tab 25 Mg Tab PO 50 mg Q12HR ERINN Administration Nutrition/Malnutrition Assess - Dietary Evaluation Nutrition/Malnutrition Findings: Nutrition Notes Start: 10/04/20 11:13 Freq: Status: Active Protocol: Document 11/17/20 12:57 AB (Rec: 11/17/20 13:39 AB [id number]) Co-Sign 11/17/20 12:57 NHALL Nutrition Notes Initial or Follow up Reassessment Current Diagnosis Acute Kidney Injury, Respiratory Failure Other Pertinent Diagnosis C-Diff, Cardiac arrest, s/p c- section and supracervical hysterectomy Current Diet Jevity 1.2 at 60 ml/hr Labs/Tests Reviewed Pertinent Medications Lasix D10w at 75ml/hr Height 5 ft 8 in Weight 105 kg Industry Body Weight (kg) 63.63 BMI 35.2 Weight change and time frame 11% wt loss in 1 mth Weight Status Obese Subjective/Other Information F/U for TF tolerance, POC. Pt on T-piece. Still waiting for SNF placement. Per RN, pt is tolerating TF running at goal. Percent of energy/protein needs met: 100%/100% Burn Absent Trauma Absent GI Symptoms None Food Allergy Yes Current % PO Negligible Minimum of two criteria Yes Interpretation of Weight Loss (severe) >5% in 1 month Fluid Accumulation Mild (non-severe) #2 Nutrition Diagnosis Malnutrition Etiology critically ill status As Evidenced by Signs and Symptoms fluid accumulation and wt loss of 11% in 1 month #1 Nutrition Diagnosis Inadequate oral intake Diagnosis Progress(for reassessment Continues documentation) Is patient on ventilator? No Is Patient Ambulatory and/or Out of Bed No [facility] 2172.012 Kcal/Kg value to use for calculation 16 Approximate Energy Requirements Using 1680 kcal/Kg Calculation Used for Recommendations Kcal/kg Additional Notes Protein needs are 68-85g (0.8- 1g/kg AdjBW 85kg) Fluid needs are 1ml/kcal Nutrition Intervention Change Diet Order: Continue Nutrition Support: Jevity 1.2 at 60ml/hr. Flush 100ml q4h. Kcal 1,782 Protein (gm) 87 Fluid (mL) 1,259 Goal #1 TF tolerance Goal #2 Meet at least 75% of energy and protein needs Anticipated Discharge Needs: Unable to determine at this time Follow-Up By: 11/24/20 Additional Comments F/U for stable TF, weight, POC
[2020-11-24] MEDS: SODIUM BICARBONATE 325 MG TAB FEEDTUBE PRN ×2 (11:49→11:51)
[2020-11-24] MEDS: FAMOTIDINE 20 MG TAB PO SCH ×2 (11:49→21:06)
[2020-11-24] MEDS: FUROSEMIDE 40 MG TAB PO SCH (11:50)
[2020-11-24] MEDS: ENOXAPARIN 40 MG/0.4 ML INJ SUB-Q SCH (11:50)
[2020-11-24] MEDS: SODIUM BICARBONATE 650 MG TAB PO SCH ×3 (11:52→21:06)
[2020-11-24] MEDS: TOPIRAMATE TAB 25 MG TAB PO SCH ×2 (11:58→21:07)
[2020-11-25] MEDS: hydrALAZINE 25 MG TAB PO SCH ×3 (05:51→22:58)
[2020-11-25] MEDS: ACETAMINOPHEN 325 MG/10.15 ML ORAL LIQD UNIT DOSE FEEDTUBE PRN ×2 (05:53→23:02)
[2020-11-25] MEDS: DEXTROSE 10% IN WATER 1,000 ML IV SCH ×2 (06:43→14:43)
[2020-11-25] MEDS: SODIUM BICARBONATE 650 MG TAB PO SCH ×3 (07:57→19:56)
[2020-11-25] MEDS: FAMOTIDINE 20 MG TAB PO SCH ×2 (09:18→22:58)
[2020-11-25] MEDS: FUROSEMIDE 40 MG TAB PO SCH (09:19)
[2020-11-25] MEDS: TOPIRAMATE TAB 25 MG TAB PO SCH ×2 (09:19→22:59)
[2020-11-25] MEDS: ENOXAPARIN 40 MG/0.4 ML INJ SUB-Q SCH (09:19)
--- NOTE | 2020-11-25 10:03 | Progress Note ---
Assessment and Plan Assessment and plan: --Cardiac arrest; 10/07/2020 ,status post CPR --Acute hypoxic brain injury; Supportive care, closely monitor --Acute hypoxic respiratory failure: Tracheostomy on T-piece , today on 4.5 L oxygen, saturating 100% Supportive care, Pulmonary critical following --Persistent hypoglycemia; patient is requiring continuous D10 W infusion CT abdomen done to rule out insulinoma, CT abdomen report negative for pancreatic tumor We will closely monitor COVID-19 negative C. difficile positive; Patient on contact isolation Completed treatment --Sepsis; received antibiotics Continue to monitor off antibiotics ID following --COVID-19 test negative; 10/08/2020 --C. difficile colitis test; positive; 10/16/2020 --Acute metabolic encephalopathy --Acute kidney injury; vasomotor nephropathy Resolved, renal function within normal limits, closely monitor --Shock; monitor of pressors Blood pressures reasonable level --DIC; sepsis, septic shock, resolved --History of preeclampsia; / hemorrhage Status post hysterectomy --History of C. difficile colitis; completed oral vancomycin --DVT/SVT and right upper extremity Very poor prognosis, Consults recommendations noted and appreciated We will closely monitor the patient and adjust management as needed Plan of care reviewed with the patient's nurse. Patient is clinically stable Pending placement,discharge to SNF when placement is processed Plan of care reviewed with the patient's nurse Critical care statement The high probability of a clinically significant, sudden or life threatening deterioration of the [MULTIPLE ORGAN] system(s) required my full and direct attention, intervention and personal management. The aggregate critical care time was [33] minutes. This time is in addition to time spent performing reported procedures but includes the following: [X] Data Review and interpretation [X] Patient assessment and monitoring of vital signs [X] Documentation [X] Medication orders and management 30 y/o female patient with Eclampsia/help syndrome, s/p emergent section with DIC, hemorrhage, supracervical abdominal hysterectomy, acute respiratory failure , tracheostomy on T-piece with morbid obesity, s/p cardiac arrest 12/08/2019 status post CPR per ACLS, acute hypoxic brain injury Acute kidney injury improved, severe shock requiring pressors, DIC septic shock improved, history of C. difficile colitis completed treatment with vancomycin. Tracheostomy on T-piece, continues to require 5 L of oxygen. Herpetic flareup, ID started treatment with antibiotics, patient is waiting for SNF placement DC planning per case management History Interval history: I have seen and examined the patient at the bedside this morning in ICU Patient remains unresponsive, tracheostomy T-piece on 5 L of oxygen No new events reported by the nursing staff Patient is slightly agitated. In mild distress Vital signs reviewed Hospitalist Physical - Constitutional Vitals: Temp Pulse Resp BP Pulse Ox 99.2 F 94 H 17 122/78 98 11/25/20 08:00 11/25/20 09:00 11/25/20 09:00 11/25/20 09:00 11/25/20 09:23 General appearance: Present: no acute distress, well-nourished, obese, other (Noncommunicative) - EENT Eyes: Present: PERRL, EOM intact ENT: other (Tracheostomy on T-piece) - Neck Neck: Present: supple, normal ROM - Respiratory Respiratory effort: normal Respiratory: bilateral: diminished, rhonchi, negative: rales, wheezing - Cardiovascular Rhythm: regular Heart Sounds: Present: S1 & S2 - Extremities Extremities: no ischemia Extremity abnormal: edema - Abdominal General gastrointestinal: soft, non-tender, non-distended, normal bowel sounds, other (PEG in place) - Integumentary Integumentary: Present: clear, warm - Psychiatric Psychiatric: other (Alert awake unresponsive) - Neurologic Neurologic: other (Unresponsive/anoxic brain injury) HEART Score - HEART Score Age: < 45 Risk factors: 1-2 risk factors - Critical Actions Critical Actions: >7 pts:50-65% risk of adverse cardiac event. Early invasive measures Results - Labs CBC & Chem 7: 11/19/20 05:23 11/13/20 10:05 Labs: Laboratory Last Values WBC 10.2 K/mm3 (4.5-11.0) 11/07/20 04:44 RBC 3.88 M/mm3 (3.65-5.03) 11/07/20 04:44 Hgb 11.1 gm/dl (10.1-14.3) 11/19/20 05:23 Hgb Comment See scanned result 10/04/20 Unknown Hct 34.5 % (30.3-42.9) 11/19/20 05:23 MCV 84 fl (79-97) 11/07/20 04:44 MCH 28 pg (28-32) 11/07/20 04:44 MCHC 34 % (30-34) 11/07/20 04:44 RDW 16.6 % (13.2-15.2) H 11/07/20 04:44 Plt Count 259 K/mm3 (140-440) 11/07/20 04:44 Lymph % (Auto) 15.2 % (13.4-35.0) 11/07/20 04:44 [place] % (Auto) 13.1 % (0.0-7.3) H 11/07/20 04:44 Eos % (Auto) 2.5 % (0.0-4.3) 11/07/20 04:44 Baso % (Auto) 0.6 % (0.0-1.8) 11/07/20 04:44 Lymph # (Auto) 1.6 K/mm3 (1.2-5.4) 11/07/20 04:44 [place] # (Auto) 1.3 K/mm3 (0.0-0.8) H 11/07/20 04:44 Eos # (Auto) 0.3 K/mm3 (0.0-0.4) 11/07/20 04:44 Baso # (Auto) 0.1 K/mm3 (0.0-0.1) 11/07/20 04:44 Add Manual Diff Complete 10/29/20 07:56 Total Counted 100 10/29/20 07:56 Seg Neutrophils % 68.6 % (40.0-70.0) 11/07/20 04:44 Seg Neuts % (Manual) 80.0 % (40.0-70.0) H 10/29/20 07:56 Band Neutrophils % 2.0 % 10/15/20 05:50 Lymphocytes % (Manual) 15.0 % (13.4-35.0) 10/29/20 07:56 Reactive Lymphs % (Man) 1.0 % 10/02/20 12:18 Monocytes % (Manual) 4.0 % (0.0-7.3) 10/29/20 07:56 Eosinophils % (Manual) 1.0 % (0.0-4.3) 10/29/20 07:56 Myelocytes % 2.0 % 10/02/20 13:05 Metamyelocytes % 1.0 % 10/14/20 04:00 Nucleated RBC % Not Reportable 10/29/20 07:56 Seg Neutrophils # 7.0 K/mm3 (1.8-7.7) 11/07/20 04:44 Seg Neutrophils # Man 10.9 K/mm3 (1.8-7.7) H 10/29/20 07:56 Band Neutrophils # 0.0 K/mm3 10/29/20 07:56 Lymphocytes # (Manual) 2.0 K/mm3 (1.2-5.4) 10/29/20 07:56 Abs React Lymphs (Man) 0.0 K/mm3 10/29/20 07:56 Monocytes # (Manual) 0.5 K/mm3 (0.0-0.8) 10/29/20 07:56 Eosinophils # (Manual) 0.1 K/mm3 (0.0-0.4) 10/29/20 07:56 Basophils # (Manual) 0.0 K/mm3 (0.0-0.1) 10/29/20 07:56 Metamyelocytes # 0.0 K/mm3 10/29/20 07:56 Myelocytes # 0.0 K/mm3 10/29/20 07:56 Promyelocytes # 0.0 K/mm3 10/29/20 07:56 Blast Cells # 0.0 K/mm3 10/29/20 07:56 WBC Morphology Not Reportable 10/29/20 07:56 Hypersegmented Neuts Not Reportable 10/29/20 07:56 Hyposegmented Neuts Not Reportable 10/29/20 07:56 Hypogranular Neuts Not Reportable 10/29/20 07:56 Smudge Cells Not Reportable 10/29/20 07:56 Toxic Granulation Not Reportable 10/29/20 07:56 Toxic Vacuolation Not Reportable 10/29/20 07:56 Dohle Bodies Not Reportable 10/29/20 07:56 Pelger-Huet Anomaly Not Reportable 10/29/20 07:56 Ester Rods Not Reportable 10/29/20 07:56 Platelet Estimate Consistent w auto 10/29/20 07:56 Clumped Platelets Not Reportable 10/29/20 07:56 Plt Clumps, EDTA Not Reportable 10/29/20 07:56 Large Platelets Few 10/29/20 07:56 Giant Platelets Not Reportable 10/29/20 07:56 Platelet Satelliting Not Reportable 10/29/20 07:56 Plt Morphology Comment Not Reportable 10/29/20 07:56 RBC Morphology Not Reportable 10/29/20 07:56 Dimorphic RBCs Not Reportable 10/29/20 07:56 Polychromasia Rare 10/29/20 07:56 Hypochromasia Few 10/29/20 07:56 Poikilocytosis Not Reportable 10/29/20 07:56 Anisocytosis Not Reportable 10/29/20 07:56 Microcytosis Not Reportable 10/29/20 07:56 Macrocytosis Not Reportable 10/29/20 07:56 Spherocytes Not Reportable 10/29/20 07:56 Pappenheimer Bodies Not Reportable 10/29/20 07:56 Sickle Cells Not Reportable 10/29/20 07:56 Target Cells Few 10/29/20 07:56 Tear Drop Cells Not Reportable 10/29/20 07:56 Ovalocytes Not Reportable 10/29/20 07:56 Stomatocytes Few 10/14/20 04:00 Helmet Cells Not Reportable 10/29/20 07:56 [place] Bodies Not Reportable 10/29/20 07:56 Crucible Rings Not Reportable 10/29/20 07:56 Roark Cells Not Reportable 10/29/20 07:56 Bite Cells Not Reportable 10/29/20 07:56 Crenated Cell Not Reportable 10/29/20 07:56 Elliptocytes Not Reportable 10/29/20 07:56 Acanthocytes (Spur) Not Reportable 10/29/20 07:56 Rouleaux Not Reportable 10/29/20 07:56 Hemoglobin C Crystals Not Reportable 10/29/20 07:56 Schistocytes Not Reportable 10/29/20 07:56 Malaria parasites Not Reportable 10/29/20 07:56 Sickle Cell Solubility See scanned result 10/04/20 Unknown Hemoglobin A See scanned result 10/04/20 Unknown Hemoglobin A2 See scanned result 10/04/20 Unknown Hemoglobin A2 Prime See scanned result 10/04/20 Unknown Hemoglobin C See scanned result 10/04/20 Unknown Hemoglobin D See scanned result 10/04/20 Unknown Hemoglobin E See scanned result 10/04/20 Unknown Hgb F Diffential Stain See scanned result 10/04/20 Unknown Hemoglobin F Quant See scanned result 10/04/20 Unknown Hemoglobin G See scanned result 10/04/20 Unknown Hemoglobin S See scanned result 10/04/20 Unknown Hemoglobin O-Sarles See scanned result 10/04/20 Unknown Hemoglobin [place] See scanned result 10/04/20 Unknown Hemoglobin Analilia See scanned result 10/04/20 Unknown Variant Hemoglobin See scanned result 10/04/20 Unknown Abnorm Hgb IEF Confirm See scanned result 10/04/20 Unknown Hemoglobin Interpret See scanned result 10/04/20 Unknown Hemoglobinopathy Note See scanned result 10/04/20 Unknown Sharad Bodies Not Reportable 10/29/20 07:56 Hem Pathologist Commnt No 10/29/20 07:56 PT 13.6 Sec. (12.2-14.9) 10/21/20 13:54 INR 1.06 (0.87-1.13) 10/21/20 13:54 APTT 31.6 Sec. (24.2-36.6) 10/03/20 00:40 Fibrinogen 336 mg/dl (211-480) 10/04/20 10:00 D-Dimer 1974.47 ng/mlDDU (0-234) H 11/11/20 13:50 ABG pH 7.459 pH Units (7.350-7.450) H 10/26/20 10:30 POC ABG pCO2 20.7 mmHg (32.0-48.0) L 10/13/20 07:18 ABG pCO2 32.4 mm Hg 10/26/20 10:30 POC ABG pO2 137.9 mmHg (83-108) H 10/13/20 07:18 ABG pO2 112.2 mm Hg (80.0-90.0) H 10/26/20 10:30 POC ABG HCO3 14.8 10/13/20 07:18 ABG HCO3 22.5 mmol/L (20.0-26.0) 10/26/20 10:30 ABG O2 Saturation 98.2 % (95.0-99.0) 10/26/20 10:30 ABG O2 Content 18.5 (0.0-44) 10/26/20 10:30 POC ABG Base Excess -6.9 10/13/20 07:18 ABG Base Excess -0.6 mmol/L (-2.0-3.0) 10/26/20 10:30 ABG Hemoglobin 13.5 gm/dl (12.0-16.0) 10/26/20 10:30 ABG Oxyhemoglobin 98.3 (94-98) H 10/13/20 07:18 ABG Carboxyhemoglobin 1.3 % (0.0-5.0) 10/26/20 10:30 ABG Methemoglobin 0.5 % (0.0-1.5) 10/26/20 10:30 ABG Sodium 135.9 mmol/L (136.0-145.0) L 10/13/20 07:18 ABG Potassium 3.7 mmol/L (3.40-4.50) 10/13/20 07:18 ABG Chloride 111.0 mmol/L (98-107) H 10/13/20 07:18 ABG Glucose 109 mg/dL (65-95) H 10/13/20 07:18 VBG pH 6.949 (7.320-7.420) L* 10/02/20 Unknown Oxyhemoglobin 96.5 % (95.0-99.0) 10/26/20 10:30 Carboxyhemoglobin 0.3 (0.5-1.5) L 10/13/20 07:18 FiO2 25 % 10/26/20 10:30 Sodium 138 mmol/L (137-145) 11/13/20 10:05 Potassium 4.3 mmol/L (3.6-5.0) 11/13/20 10:05 Chloride 101.7 mmol/L (98-107) 11/13/20 10:05 Carbon Dioxide 23 mmol/L (22-30) 11/13/20 10:05 Anion Gap 18 mmol/L 11/13/20 10:05 BUN 14 mg/dL (7-17) 11/13/20 10:05 Creatinine 0.6 mg/dL (0.6-1.2) 11/13/20 10:05 Estimated GFR > 60 ml/min 11/13/20 10:05 BUN/Creatinine Ratio 23 % 11/13/20 10:05 Glucose 114 mg/dL (65-100) H 11/13/20 10:05 POC Glucose 93 mg/dL (70-105) 11/25/20 05:23 Random Insulin 43.2 uIU/mL (<=19.6) H 11/02/20 19:19 Proinsulin See scanned result 11/02/20 19:19 C-Peptide 6.23 ng/mL (0.80-3.85) H 11/02/20 19:19 Lactic Acid 1.90 mmol/L (0.7-2.0) 10/04/20 22:00 Uric Acid 7.5 mg/dL (3.5-7.6) 10/02/20 13:05 Calcium 9.7 mg/dL (8.4-10.2) 11/13/20 10:05 Ionized Calcium 4.4 mg/dL (4.8-5.6) L 10/07/20 21:00 Phosphorus 4.60 mg/dL (2.5-4.5) H 11/13/20 10:05 Magnesium 2.10 mg/dL (1.7-2.3) 11/13/20 10:05 Total Bilirubin 0.50 mg/dL (0.1-1.2) 11/04/20 05:00 AST 90 units/L (5-40) H 11/04/20 05:00 ALT 36 units/L (7-56) 11/04/20 05:00 Alkaline Phosphatase 122 units/L (35-129) 11/04/20 05:00 Lactate Dehydrogenase 769 units/L (91-180) H 10/02/20 13:05 C-Reactive Protein 0.70 mg/dL (0.00-1.30) 11/11/20 13:50 NT-Pro-B Natriuret Pep 2788 pg/mL (0-450) H 10/04/20 10:00 Total Protein 7.4 g/dL (6.3-8.2) 11/04/20 05:00 Albumin 3.8 g/dL (3.9-5) L 11/04/20 05:00 Albumin/Globulin Ratio 1.1 % 11/04/20 05:00 Procalcitonin < 0.05 ng/mL (<0.15) 11/11/20 13:50 Arterial Blood Glucose 109 mg/dL (65-95) H 10/13/20 07:18 Arterial Blood Ionized Calcium 4.6 mg/dL (4.6-5.3) 10/13/20 07:18 Urine Color Yellow (Yellow) 11/11/20 13:50 Urine Turbidity Cloudy (Clear) 11/11/20 13:50 Urine pH 6.0 (5.0-7.0) 11/11/20 13:50 Ur Specific [place] 1.013 (1.003-1.030) 11/11/20 13:50 Urine Protein 100 mg/dl mg/dL (Negative) 11/11/20 13:50 Urine Glucose (UA) Neg mg/dL (Negative) 11/11/20 13:50 Urine Ketones Neg mg/dL (Negative) 11/11/20 13:50 Urine Blood Mod (Negative) 11/11/20 13:50 Urine Nitrite Pos (Negative) 11/11/20 13:50 Urine Bilirubin Neg (Negative) 11/11/20 13:50 Urine Urobilinogen 2.0 mg/dL (<2.0) 11/11/20 13:50 Ur Leukocyte Esterase Lg (Negative) 11/11/20 13:50 Urine WBC (Auto) > 182.0 /HPF (0.0-6.0) H 11/11/20 13:50 Urine RBC (Auto) > 182.0 /HPF (0.0-6.0) 11/11/20 13:50 U Epithel Cells (Auto) 1.0 /HPF (0-13.0) 11/11/20 13:50 Urine Bacteria (Auto) 4+ /HPF (Negative) 11/11/20 13:50 Urine WBC Clumps 3+ /HPF 11/11/20 13:50 Calcium Oxalate Crystal Few 11/11/20 13:50 Urine Mucus Few /HPF 11/11/20 13:50 Vancomycin Trough 12.6 ug/mL (5.0-20.0) 10/21/20 13:54 Random Vancomycin 10.7 ug/mL (0-40.0) 10/16/20 13:09 Phenytoin 5.7 ug/mL (10.0-20.0) L 10/13/20 07:00 C. difficile Tox (PCR) Positive (Negative) 10/16/20 10:22 Coronavirus (PCR) Negative (Negative) 10/08/20 14:15 Blood Type O POSITIVE 10/02/20 12:50 Antibody Screen Negative 10/02/20 12:50 Crossmatch See Detail 10/02/20 12:50 - Diagnostic Impressions Diagnostic Impressions: Echocardiogram 10/03/20 13:42 Transthoracic Echocardiogram Indication: S/P Cardiac Arrest R/O Cardiomyopathy BP: 133/71 Conclusions *Global left ventricular systolic function is normal. *The estimated ejection fraction is 60-65%. *There is trace of mitral regurgitation. *The right 0heart chambers are both slightly dilated. *There is mild tricuspid regurgitation. *There is mild-moderate pulmonary hypertension. *The right ventricular systolic pressure is calculated at 44 mmHg. *The study quality is technically difficult. Findings Procedure Info: The study quality is technically difficult. The study is technically limited due to patient body habitus. The study was technically limited due to the patient's inability to lay in the left lateral decubitus position. Left Ventricle: The left ventricular chamber size is normal. There is no left ventricular hypertrophy. Global left ventricular systolic function is normal. The estimated ejection fraction is 60-65%. Left Atrium: The left atrial chamber size is normal. Right Ventricle: The right ventricle is slightly dilated. Right Atrium: The right atrium is mildly dilated. Aortic Valve: The aortic valve leaflets are mildly thickened. There is no evidence of aortic regurgitation. There is no evidence of aortic stenosis. Mitral Valve: The mitral valve leaflets are mildly thickened. There is trace of mitral regurgitation. There is no evidence of mitral stenosis. Tricuspid Valve: There is mild tricuspid regurgitation. The right ventricular systolic pressure is calculated at 44 mmHg. There is evidence of mild pulmonary hypertension. Pulmonic Valve: There is trace pulmonic regurgitation. Pericardium: There is no pericardial effusion. Aorta: There is no dilatation of the ascending aorta. There is no dilatation of the aortic root. Venous: The inferior vena cava is dilated. Measurements Chambers 2D Name Value Normal Range IVSd (2D) 1 cm (0.6 - 1.1) LVPWd (2D) 1.01 cm (0.6 - 1.1) LVIDd (2D) 4.58 cm (3.7 - 5.6) LVIDs (2D) 3.17 cm (2 - 3.8) LV FS (2D) 30.93 % - EF Teichholz (2D) 58.66 % - Ao root diameter (2D) 2.94 cm (2 - 3.7) Volumes/Mass Name Value Normal Range LA ESV SP 4CH (A/L) 72.82 ml - LA ESV SP 2CH (A/L) 66.86 ml - LA ESV BP (A/L) 74.49 ml - LA ESV SP 4CH (MOD) 71.03 ml - LA ESV SP 2CH (MOD) 64.3 ml - LV EDV SP 4CH (MOD) 98.82 ml - LV ESV SP 4CH (MOD) 24.8 ml - EF SP 4CH (MOD) 74.9 % - LV EDV SP 2CH (MOD) 86.1 ml - LV ESV SP 2CH (MOD) 36.93 ml - EF SP 2CH (MOD) 57.11 % - LV EDV BP 94.4 ml - LV ESV BP 32.66 ml - BP EF (MOD) 65.4 % - Diastolic/Systolic Function Name Value Normal Range MV E-wave Vmax 1.04 m/sec - MV deceleration time 160.46 msec - MV A-wave Vmax 0.92 m/sec - MV E:A ratio 1.14 ratio - Aortic Valve Name Value Normal Range AV Vmax 2.12 m/sec - AV VTI 22.37 cm - AV peak gradient 17.95 mmHg - AV mean gradient 7.29 mmHg - LVOT diameter 2.01 cm - LVOT Vmax 1.8 m/sec - LVOT VTI 27.17 cm - LVOT peak gradient 12.91 mmHg - LVOT mean gradient 6.83 mmHg - SV LVOT 86.42 ml - ANITA (continuity Vmax) 2.7 cm2 - ANITA (continuity VTI) 3.86 cm2 - Ascending Ao 3.18 cm - Tricuspid Valve Name Value Normal Range TV E-wave Vmax 0.88 m/sec - TR Vmax 3.01 m/sec - TR peak gradient 36.27 mmHg - RAP 8 mmHg - RVSP 44 mmHg - IVC diameter 2.65 cm (1.2 - 2.3) Pulmonic Valve/Qp:Qs Name Value Normal Range PV Vmax 1.22 m/sec - PV peak gradient 5.91 mmHg - RVOT Vmax 0.87 m/sec - RVOT VTI 13.32 cm - RVOT peak gradient 3 mmHg - PV acceleration time 110.37 msec - [place]/IV: Voiding Method External Female Catheter IV Catheter Type [Right Foot] INT / Saline Lock IV Catheter Type [Left Forearm Peripheral IV ] IV Catheter Type [Left Wrist] INT / Saline Lock IV Catheter Type [Right Hand] INT / Saline Lock IV Catheter Type [Right INT / Saline Lock Antecubital] IV Catheter Type [Right Upper Mid-line arm] IV Catheter Type [Left Triple Lumen Cath Internal Jugular] IV Catheter Type [Left Hand] Peripheral IV IV Catheter Type [Left Peripheral IV Antecubital] Active Medications - Current Medications Current Medications: Generic Name Dose Route Start Last Admin Trade Name Freq PRN Reason Stop Dose Admin Acetaminophen 650 mg 10/05/20 16:34 11/25/20 05:53 Acetaminophen 325 Mg/10.15 Ml Oral Liqd Unit Dose FEEDTUBE 650 mg Q6H PRN Administration Non Cardiac Pain or Temp>100.5 Albuterol 2.5 mg 11/05/20 13:03 11/06/20 13:04 Albuterol 2.5 Mg/3 Ml Nebu IH 2.5 mg Q4HRT PRN Administration Shortness Of Breath Lipase/Protease/Amylase 1 each 10/05/20 11:09 Lipase 10,500/Protease 25,000/Amylase 43,750 (Units) Dr Barakat FEEDTUBE PRN PRN For Clogged Feeding Tube Enoxaparin Sodium 40 mg 10/22/20 10:00 11/25/20 09:19 Enoxaparin 40 Mg/0.4 Ml Inj SUB-Q 40 mg DAILY ERINN Administration Protocol Famotidine 20 mg 10/07/20 10:00 11/25/20 09:18 Famotidine 20 Mg Tab PO 20 mg BID ERINN Administration Furosemide 40 mg 10/17/20 10:00 11/25/20 09:19 Furosemide 40 Mg Tab PO 40 mg QDAY ERINN Administration Hydralazine HCl 20 mg 10/07/20 11:49 10/17/20 07:20 Hydralazine 20 Mg/1 Ml Inj IV 20 mg Q6H PRN Administration SBP >170 Hydralazine HCl 50 mg 10/17/20 09:00 11/25/20 05:51 Hydralazine 25 Mg Tab PO 50 mg Q8HR ERINN Administration Dextrose 1,000 mls @ 75 mls/hr 10/13/20 11:00 11/25/20 06:43 D10w IV 75 mls/hr DIRECT ERINN Administration Labetalol HCl 300 mg 11/16/20 17:00 11/25/20 07:57 Labetalol 200 Mg Tab PO Not Given TID ERINN Simple Syrup 15 ml 10/05/20 11:09 Simple Syrup 15 Ml FEEDTUBE PRN PRN Hypoglycemia Simple Syrup 30 ml 10/05/20 11:09 Simple Syrup 15 Ml FEEDTUBE PRN PRN Hypoglycemia Sodium Bicarbonate 325 mg 10/05/20 11:09 11/24/20 11:51 Sodium Bicarbonate 325 Mg Tab FEEDTUBE 325 mg PRN PRN Administration For Clogged Feeding Tube Sodium Bicarbonate 1,300 mg 10/13/20 14:00 11/25/20 07:57 Sodium Bicarbonate 650 Mg Tab PO 1,300 mg TID ERINN Administration Topiramate 50 mg 10/05/20 11:00 11/25/20 09:19 Topiramate Tab 25 Mg Tab PO 50 mg Q12HR ERINN Administration Nutrition/Malnutrition Assess - Dietary Evaluation Nutrition/Malnutrition Findings: Nutrition Notes Start: 10/04/20 11:13 Freq: Status: Active Protocol: Document 11/24/20 11:24 CW (Rec: 11/24/20 11:47 CW [email or web address]) Nutrition Notes Initial or Follow up Reassessment Current Diagnosis Acute Kidney Injury, Respiratory Failure Other Pertinent Diagnosis C-Diff, Cardiac arrest, s/p c- section and supracervical hysterectomy Current Diet Jevity 1.2 at 60 ml/hr Labs/Tests BG 108 Pertinent Medications Lasix D10w at 75ml/hr Height 5 ft 8 in Weight 102.5 kg Laura Body Weight (kg) 63.63 BMI 34.3 Weight change and time frame 2.4% weight loss x 1 week; likely d/t diuertics usage Weight Status Obese Subjective/Other Information F/U for TF tolerance, POC. T- Piece in place. POC. Pt continues to tolerate TF. Pt has vaginal rash that's being treated by wound care. Awaiting SNF placement. Percent of energy/protein needs met: 100%/96% Burn Absent Trauma Absent GI Symptoms None Food Allergy Yes Current % PO Negligible Minimum of two criteria Yes Interpretation of Weight Loss (severe) >2% in 1 week Fluid Accumulation Mild (non-severe) #2 Nutrition Diagnosis Malnutrition Diagnosis Progress(for reassessment Continues documentation) #1 Nutrition Diagnosis Inadequate oral intake Diagnosis Progress(for reassessment Continues documentation) Is patient on ventilator? No Is Patient Ambulatory and/or Out of Bed No [facility] 2142.048 Kcal/Kg value to use for calculation 16 Approximate Energy Requirements Using 1640 kcal/Kg Calculation Used for Recommendations Kcal/kg Additional Notes Protein needs are 66-83g (0.8- 1g/kg AdjBW 83kg) Fluid needs are 1ml/kcal Nutrition Intervention Change Diet Order: Continue Nutrition Support: Jevity 1.2 at 60ml/hr. Flush 100ml q4h. Kcal 1,728 Protein (gm) 80 Fluid (mL) 1,162 Goal #1 TF tolerance Goal #2 Meet at least 75% of energy and protein needs Anticipated Discharge Needs: Unable to determine at this time Follow-Up By: 12/01/20 Additional Comments F/U for TF tolerance, stable weight, POC
[2020-11-26] MEDS: DEXTROSE 10% IN WATER 1,000 ML IV SCH ×2 (03:16→16:49)
[2020-11-26] MEDS: hydrALAZINE 25 MG TAB PO SCH ×3 (05:26→22:21)
[2020-11-26 05:52] LABS: Basophils % (Auto) 0.4 % (0.0-1.8); Eosinophils # (Auto) 0.2 K/mm3 (0.0-0.4); Eosinophils % (Auto) 2.2 % (0.0-4.3); Hematocrit 37.1 % (30.3-42.9); Hemoglobin 12.5 gm/dl (10.1-14.3); Lymphocytes # (Auto) 1.8 K/mm3 (1.2-5.4); Lymphocytes % (Auto) 18.9 % (13.4-35.0); Mean Corpuscular HGB Conc 34 % (30-34); Mean Corpuscular Volume 82 fl (79-97); Monocytes % (Auto) 10.1 % (0.0-7.3); Platelet Count 290 K/mm3 (140-440); Red Blood Count 4.53 M/mm3 (3.65-5.03); Red Cell Distribution Width 15.4 % (13.2-15.2)
[2020-11-26 06:03] LABS: Alanine Aminotransferase 42 units/L (7-56); Albumin 3.9 g/dL (3.9-5); Blood Urea Nitrogen 9 mg/dL (7-17); Calcium 9.5 mg/dL (8.4-10.2); Hemolysis Index 23
[2020-11-26 06:15] LABS: BUN/Creatinine Ratio 15
[2020-11-26] MEDS: SODIUM BICARBONATE 650 MG TAB PO SCH ×3 (08:22→20:41)
--- NOTE | 2020-11-26 09:38 | Progress Note ---
Assessment and Plan Assessment and plan: Clinically no change --Cardiac arrest; 10/07/2020 ,status post CPR --Acute hypoxic brain injury; Supportive care, closely monitor --Acute hypoxic respiratory failure: Tracheostomy on T-piece , today on 4.5 L oxygen, saturating 100% Supportive care, Pulmonary critical following --Persistent hypoglycemia; patient is requiring continuous D10 W infusion CT abdomen done to rule out insulinoma, CT abdomen report negative for pancreatic tumor We will closely monitor COVID-19 negative C. difficile positive; Patient on contact isolation Completed treatment --Sepsis; received antibiotics Continue to monitor off antibiotics ID following --COVID-19 test negative; 10/08/2020 --C. difficile colitis test; positive; 10/16/2020 --Acute metabolic encephalopathy --Acute kidney injury; vasomotor nephropathy Resolved, renal function within normal limits, closely monitor --Shock; monitor of pressors Blood pressures reasonable level --DIC; sepsis, septic shock, resolved --History of preeclampsia; / hemorrhage Status post hysterectomy --History of C. difficile colitis; completed oral vancomycin --DVT/SVT and right upper extremity Very poor prognosis, Consults recommendations noted and appreciated We will closely monitor the patient and adjust management as needed Plan of care reviewed with the patient's nurse. Patient is clinically stable Pending placement,discharge to SNF when placement is processed Plan of care reviewed with the patient's nurse Critical care statement The high probability of a clinically significant, sudden or life threatening deterioration of the [MULTIPLE ORGAN] system(s) required my full and direct attention, intervention and personal management. The aggregate critical care time was [33] minutes. This time is in addition to time spent performing reported procedures but includes the following: [X] Data Review and interpretation [X] Patient assessment and monitoring of vital signs [X] Documentation [X] Medication orders and management 30 y/o female patient with Eclampsia/help syndrome, s/p emergent section with DIC, hemorrhage, supracervical abdominal hysterectomy, acute respiratory failure , tracheostomy on T-piece with morbid obesity, s/p cardiac arrest 12/08/2019 status post CPR per ACLS, acute hypoxic brain injury Acute kidney injury improved, severe shock requiring pressors, DIC septic shock improved, history of C. difficile colitis completed treatment with vancomycin. Tracheostomy on T-piece, continues to require 5 L of oxygen. Herpetic flareup, ID started treatment with antibiotics, patient is waiting for SNF placement DC planning per case management History Interval history: I have seen and examined the patient at the bedside today Clinically no change patient is noncommunicative, alert and awake Tracheostomy on 5 L of oxygen No new complaints from the nurse Vital signs reviewed Hospitalist Physical - Constitutional Vitals: Temp Pulse Resp BP Pulse Ox 98.7 F 102 H 17 117/74 99 11/26/20 08:00 11/26/20 08:22 11/26/20 08:00 11/26/20 08:22 11/26/20 08:00 General appearance: Present: no acute distress, well-nourished, obese, other (Noncommunicative) - EENT Eyes: Present: PERRL, EOM intact - Neck Neck: Present: supple, normal ROM - Respiratory Respiratory effort: normal Respiratory: bilateral: diminished, negative: rales - Cardiovascular Rhythm: regular Heart Sounds: Present: S1 & S2 - Extremities Extremities: no ischemia, pulses intact - Abdominal General gastrointestinal: soft, non-tender, non-distended, normal bowel sounds - Integumentary Integumentary: Present: clear, warm - Psychiatric Psychiatric: appropriate mood/affect, cooperative - Neurologic Neurologic: CNII-XII intact, moves all extremities HEART Score - HEART Score Age: < 45 Risk factors: 1-2 risk factors - Critical Actions Critical Actions: >7 pts:50-65% risk of adverse cardiac event. Early invasive measures Results - Labs CBC & Chem 7: 11/26/20 04:37 11/26/20 04:37 Labs: Laboratory Last Values WBC 9.6 K/mm3 (4.5-11.0) 11/26/20 04:37 RBC 4.53 M/mm3 (3.65-5.03) 11/26/20 04:37 Hgb 12.5 gm/dl (10.1-14.3) 11/26/20 04:37 Hgb Comment See scanned result 10/04/20 Unknown Hct 37.1 % (30.3-42.9) 11/26/20 04:37 MCV 82 fl (79-97) 11/26/20 04:37 MCH 28 pg (28-32) 11/26/20 04:37 MCHC 34 % (30-34) 11/26/20 04:37 RDW 15.4 % (13.2-15.2) H 11/26/20 04:37 Plt Count 290 K/mm3 (140-440) 11/26/20 04:37 Lymph % (Auto) 18.9 % (13.4-35.0) 11/26/20 04:37 [place] % (Auto) 10.1 % (0.0-7.3) H 11/26/20 04:37 Eos % (Auto) 2.2 % (0.0-4.3) 11/26/20 04:37 Baso % (Auto) 0.4 % (0.0-1.8) 11/26/20 04:37 Lymph # (Auto) 1.8 K/mm3 (1.2-5.4) 11/26/20 04:37 [place] # (Auto) 1.0 K/mm3 (0.0-0.8) H 11/26/20 04:37 Eos # (Auto) 0.2 K/mm3 (0.0-0.4) 11/26/20 04:37 Baso # (Auto) 0.0 K/mm3 (0.0-0.1) 11/26/20 04:37 Add Manual Diff Complete 10/29/20 07:56 Total Counted 100 10/29/20 07:56 Seg Neutrophils % 68.4 % (40.0-70.0) 11/26/20 04:37 Seg Neuts % (Manual) 80.0 % (40.0-70.0) H 10/29/20 07:56 Band Neutrophils % 2.0 % 10/15/20 05:50 Lymphocytes % (Manual) 15.0 % (13.4-35.0) 10/29/20 07:56 Reactive Lymphs % (Man) 1.0 % 10/02/20 12:18 Monocytes % (Manual) 4.0 % (0.0-7.3) 10/29/20 07:56 Eosinophils % (Manual) 1.0 % (0.0-4.3) 10/29/20 07:56 Myelocytes % 2.0 % 10/02/20 13:05 Metamyelocytes % 1.0 % 10/14/20 04:00 Nucleated RBC % Not Reportable 10/29/20 07:56 Seg Neutrophils # 6.6 K/mm3 (1.8-7.7) 11/26/20 04:37 Seg Neutrophils # Man 10.9 K/mm3 (1.8-7.7) H 10/29/20 07:56 Band Neutrophils # 0.0 K/mm3 10/29/20 07:56 Lymphocytes # (Manual) 2.0 K/mm3 (1.2-5.4) 10/29/20 07:56 Abs React Lymphs (Man) 0.0 K/mm3 10/29/20 07:56 Monocytes # (Manual) 0.5 K/mm3 (0.0-0.8) 10/29/20 07:56 Eosinophils # (Manual) 0.1 K/mm3 (0.0-0.4) 10/29/20 07:56 Basophils # (Manual) 0.0 K/mm3 (0.0-0.1) 10/29/20 07:56 Metamyelocytes # 0.0 K/mm3 10/29/20 07:56 Myelocytes # 0.0 K/mm3 10/29/20 07:56 Promyelocytes # 0.0 K/mm3 10/29/20 07:56 Blast Cells # 0.0 K/mm3 10/29/20 07:56 WBC Morphology Not Reportable 10/29/20 07:56 Hypersegmented Neuts Not Reportable 10/29/20 07:56 Hyposegmented Neuts Not Reportable 10/29/20 07:56 Hypogranular Neuts Not Reportable 10/29/20 07:56 Smudge Cells Not Reportable 10/29/20 07:56 Toxic Granulation Not Reportable 10/29/20 07:56 Toxic Vacuolation Not Reportable 10/29/20 07:56 Dohle Bodies Not Reportable 10/29/20 07:56 Pelger-Huet Anomaly Not Reportable 10/29/20 07:56 Ester Rods Not Reportable 10/29/20 07:56 Platelet Estimate Consistent w auto 10/29/20 07:56 Clumped Platelets Not Reportable 10/29/20 07:56 Plt Clumps, EDTA Not Reportable 10/29/20 07:56 Large Platelets Few 10/29/20 07:56 Giant Platelets Not Reportable 10/29/20 07:56 Platelet Satelliting Not Reportable 10/29/20 07:56 Plt Morphology Comment Not Reportable 10/29/20 07:56 RBC Morphology Not Reportable 10/29/20 07:56 Dimorphic RBCs Not Reportable 10/29/20 07:56 Polychromasia Rare 10/29/20 07:56 Hypochromasia Few 10/29/20 07:56 Poikilocytosis Not Reportable 10/29/20 07:56 Anisocytosis Not Reportable 10/29/20 07:56 Microcytosis Not Reportable 10/29/20 07:56 Macrocytosis Not Reportable 10/29/20 07:56 Spherocytes Not Reportable 10/29/20 07:56 Pappenheimer Bodies Not Reportable 10/29/20 07:56 Sickle Cells Not Reportable 10/29/20 07:56 Target Cells Few 10/29/20 07:56 Tear Drop Cells Not Reportable 10/29/20 07:56 Ovalocytes Not Reportable 10/29/20 07:56 Stomatocytes Few 10/14/20 04:00 Helmet Cells Not Reportable 10/29/20 07:56 Burk-N[place] Bodies Not Reportable 10/29/20 07:56 [place] Rings Not Reportable 10/29/20 07:56 Antoine Cells Not Reportable 10/29/20 07:56 Bite Cells Not Reportable 10/29/20 07:56 Crenated Cell Not Reportable 10/29/20 07:56 Elliptocytes Not Reportable 10/29/20 07:56 Acanthocytes (Spur) Not Reportable 10/29/20 07:56 Rouleaux Not Reportable 10/29/20 07:56 Hemoglobin C Crystals Not Reportable 10/29/20 07:56 Schistocytes Not Reportable 10/29/20 07:56 Malaria parasites Not Reportable 10/29/20 07:56 Sickle Cell Solubility See scanned result 10/04/20 Unknown Hemoglobin A See scanned result 10/04/20 Unknown Hemoglobin A2 See scanned result 10/04/20 Unknown Hemoglobin A2 Prime See scanned result 10/04/20 Unknown Hemoglobin C See scanned result 10/04/20 Unknown Hemoglobin D See scanned result 10/04/20 Unknown Hemoglobin E See scanned result 10/04/20 Unknown Hgb F Diffential Stain See scanned result 10/04/20 Unknown Hemoglobin F Quant See scanned result 10/04/20 Unknown Hemoglobin G See scanned result 10/04/20 Unknown Hemoglobin S See scanned result 10/04/20 Unknown Hemoglobin [place] See scanned result 10/04/20 Unknown Hemoglobin [place] See scanned result 10/04/20 Unknown Hemoglobin Analilia See scanned result 10/04/20 Unknown Variant Hemoglobin See scanned result 10/04/20 Unknown Abnorm Hgb IEF Confirm See scanned result 10/04/20 Unknown Hemoglobin Interpret See scanned result 10/04/20 Unknown Hemoglobinopathy Note See scanned result 10/04/20 Unknown Sharad Bodies Not Reportable 10/29/20 07:56 Hem Pathologist Commnt No 10/29/20 07:56 PT 13.6 Sec. (12.2-14.9) 10/21/20 13:54 INR 1.06 (0.87-1.13) 10/21/20 13:54 APTT 31.6 Sec. (24.2-36.6) 10/03/20 00:40 Fibrinogen 336 mg/dl (211-480) 10/04/20 10:00 D-Dimer 1974.47 ng/mlDDU (0-234) H 11/11/20 13:50 ABG pH 7.459 pH Units (7.350-7.450) H 10/26/20 10:30 POC ABG pCO2 20.7 mmHg (32.0-48.0) L 10/13/20 07:18 ABG pCO2 32.4 mm Hg 10/26/20 10:30 POC ABG pO2 137.9 mmHg (83-108) H 10/13/20 07:18 ABG pO2 112.2 mm Hg (80.0-90.0) H 10/26/20 10:30 POC ABG HCO3 14.8 10/13/20 07:18 ABG HCO3 22.5 mmol/L (20.0-26.0) 10/26/20 10:30 ABG O2 Saturation 98.2 % (95.0-99.0) 10/26/20 10:30 ABG O2 Content 18.5 (0.0-44) 10/26/20 10:30 POC ABG Base Excess -6.9 10/13/20 07:18 ABG Base Excess -0.6 mmol/L (-2.0-3.0) 10/26/20 10:30 ABG Hemoglobin 13.5 gm/dl (12.0-16.0) 10/26/20 10:30 ABG Oxyhemoglobin 98.3 (94-98) H 10/13/20 07:18 ABG Carboxyhemoglobin 1.3 % (0.0-5.0) 10/26/20 10:30 ABG Methemoglobin 0.5 % (0.0-1.5) 10/26/20 10:30 ABG Sodium 135.9 mmol/L (136.0-145.0) L 10/13/20 07:18 ABG Potassium 3.7 mmol/L (3.40-4.50) 10/13/20 07:18 ABG Chloride 111.0 mmol/L (98-107) H 10/13/20 07:18 ABG Glucose 109 mg/dL (65-95) H 10/13/20 07:18 VBG pH 6.949 (7.320-7.420) L* 10/02/20 Unknown Oxyhemoglobin 96.5 % (95.0-99.0) 10/26/20 10:30 Carboxyhemoglobin 0.3 (0.5-1.5) L 10/13/20 07:18 FiO2 25 % 10/26/20 10:30 Sodium 139 mmol/L (137-145) 11/26/20 04:37 Potassium 3.6 mmol/L (3.6-5.0) 11/26/20 04:37 Chloride 101.0 mmol/L (98-107) 11/26/20 04:37 Carbon Dioxide 26 mmol/L (22-30) 11/26/20 04:37 Anion Gap 16 mmol/L 11/26/20 04:37 BUN 9 mg/dL (7-17) 11/26/20 04:37 Creatinine 0.6 mg/dL (0.6-1.2) 11/26/20 04:37 Estimated GFR > 60 ml/min 11/26/20 04:37 BUN/Creatinine Ratio 15 % 11/26/20 04:37 Glucose 109 mg/dL (65-100) H 11/26/20 04:37 POC Glucose 105 mg/dL (70-105) 11/26/20 05:21 Random Insulin 43.2 uIU/mL (<=19.6) H 11/02/20 19:19 Proinsulin See scanned result 11/02/20 19:19 C-Peptide 6.23 ng/mL (0.80-3.85) H 11/02/20 19:19 Lactic Acid 1.90 mmol/L (0.7-2.0) 10/04/20 22:00 Uric Acid 7.5 mg/dL (3.5-7.6) 10/02/20 13:05 Calcium 9.5 mg/dL (8.4-10.2) 11/26/20 04:37 Ionized Calcium 4.4 mg/dL (4.8-5.6) L 10/07/20 21:00 Phosphorus 4.60 mg/dL (2.5-4.5) H 11/13/20 10:05 Magnesium 2.10 mg/dL (1.7-2.3) 11/13/20 10:05 Total Bilirubin 0.50 mg/dL (0.1-1.2) 11/26/20 04:37 AST 51 units/L (5-40) H 11/26/20 04:37 ALT 42 units/L (7-56) 11/26/20 04:37 Alkaline Phosphatase 117 units/L (35-129) 11/26/20 04:37 Lactate Dehydrogenase 769 units/L (91-180) H 10/02/20 13:05 C-Reactive Protein 0.70 mg/dL (0.00-1.30) 11/11/20 13:50 NT-Pro-B Natriuret Pep 2788 pg/mL (0-450) H 10/04/20 10:00 Total Protein 7.8 g/dL (6.3-8.2) 11/26/20 04:37 Albumin 3.9 g/dL (3.9-5) 11/26/20 04:37 Albumin/Globulin Ratio 1.0 % 11/26/20 04:37 Procalcitonin < 0.05 ng/mL (<0.15) 11/11/20 13:50 Arterial Blood Glucose 109 mg/dL (65-95) H 10/13/20 07:18 Arterial Blood Ionized Calcium 4.6 mg/dL (4.6-5.3) 10/13/20 07:18 Urine Color Yellow (Yellow) 11/11/20 13:50 Urine Turbidity Cloudy (Clear) 11/11/20 13:50 Urine pH 6.0 (5.0-7.0) 11/11/20 13:50 Ur Specific [place] 1.013 (1.003-1.030) 11/11/20 13:50 Urine Protein 100 mg/dl mg/dL (Negative) 11/11/20 13:50 Urine Glucose (UA) Neg mg/dL (Negative) 11/11/20 13:50 Urine Ketones Neg mg/dL (Negative) 11/11/20 13:50 Urine Blood Mod (Negative) 11/11/20 13:50 Urine Nitrite Pos (Negative) 11/11/20 13:50 Urine Bilirubin Neg (Negative) 11/11/20 13:50 Urine Urobilinogen 2.0 mg/dL (<2.0) 11/11/20 13:50 Ur Leukocyte Esterase Lg (Negative) 11/11/20 13:50 Urine WBC (Auto) > 182.0 /HPF (0.0-6.0) H 11/11/20 13:50 Urine RBC (Auto) > 182.0 /HPF (0.0-6.0) 11/11/20 13:50 U Epithel Cells (Auto) 1.0 /HPF (0-13.0) 11/11/20 13:50 Urine Bacteria (Auto) 4+ /HPF (Negative) 11/11/20 13:50 Urine WBC Clumps 3+ /HPF 11/11/20 13:50 Calcium Oxalate Crystal Few 11/11/20 13:50 Urine Mucus Few /HPF 11/11/20 13:50 Vancomycin Trough 12.6 ug/mL (5.0-20.0) 10/21/20 13:54 Random Vancomycin 10.7 ug/mL (0-40.0) 10/16/20 13:09 Phenytoin 5.7 ug/mL (10.0-20.0) L 10/13/20 07:00 C. difficile Tox (PCR) Positive (Negative) 10/16/20 10:22 Coronavirus (PCR) Negative (Negative) 10/08/20 14:15 Blood Type O POSITIVE 10/02/20 12:50 Antibody Screen Negative 10/02/20 12:50 Crossmatch See Detail 10/02/20 12:50 - Diagnostic Impressions Diagnostic Impressions: Echocardiogram 10/03/20 13:42 Transthoracic Echocardiogram Indication: S/P Cardiac Arrest R/O Cardiomyopathy BP: 133/71 Conclusions *Global left ventricular systolic function is normal. *The estimated ejection fraction is 60-65%. *There is trace of mitral regurgitation. *The right 0heart chambers are both slightly dilated. *There is mild tricuspid regurgitation. *There is mild-moderate pulmonary hypertension. *The right ventricular systolic pressure is calculated at 44 mmHg. *The study quality is technically difficult. Findings Procedure Info: The study quality is technically difficult. The study is technically limited due to patient body habitus. The study was technically limited due to the patient's inability to lay in the left lateral decubitus position. Left Ventricle: The left ventricular chamber size is normal. There is no left ventricular hypertrophy. Global left ventricular systolic function is normal. The estimated ejection fraction is 60-65%. Left Atrium: The left atrial chamber size is normal. Right Ventricle: The right ventricle is slightly dilated. Right Atrium: The right atrium is mildly dilated. Aortic Valve: The aortic valve leaflets are mildly thickened. There is no evidence of aortic regurgitation. There is no evidence of aortic stenosis. Mitral Valve: The mitral valve leaflets are mildly thickened. There is trace of mitral regurgitation. There is no evidence of mitral stenosis. Tricuspid Valve: There is mild tricuspid regurgitation. The right ventricular systolic pressure is calculated at 44 mmHg. There is evidence of mild pulmonary hypertension. Pulmonic Valve: There is trace pulmonic regurgitation. Pericardium: There is no pericardial effusion. Aorta: There is no dilatation of the ascending aorta. There is no dilatation of the aortic root. Venous: The inferior vena cava is dilated. Measurements Chambers 2D Name Value Normal Range IVSd (2D) 1 cm (0.6 - 1.1) LVPWd (2D) 1.01 cm (0.6 - 1.1) LVIDd (2D) 4.58 cm (3.7 - 5.6) LVIDs (2D) 3.17 cm (2 - 3.8) LV FS (2D) 30.93 % - EF Teichholz (2D) 58.66 % - Ao root diameter (2D) 2.94 cm (2 - 3.7) Volumes/Mass Name Value Normal Range LA ESV SP 4CH (A/L) 72.82 ml - LA ESV SP 2CH (A/L) 66.86 ml - LA ESV BP (A/L) 74.49 ml - LA ESV SP 4CH (MOD) 71.03 ml - LA ESV SP 2CH (MOD) 64.3 ml - LV EDV SP 4CH (MOD) 98.82 ml - LV ESV SP 4CH (MOD) 24.8 ml - EF SP 4CH (MOD) 74.9 % - LV EDV SP 2CH (MOD) 86.1 ml - LV ESV SP 2CH (MOD) 36.93 ml - EF SP 2CH (MOD) 57.11 % - LV EDV BP 94.4 ml - LV ESV BP 32.66 ml - BP EF (MOD) 65.4 % - Diastolic/Systolic Function Name Value Normal Range MV E-wave Vmax 1.04 m/sec - MV deceleration time 160.46 msec - MV A-wave Vmax 0.92 m/sec - MV E:A ratio 1.14 ratio - Aortic Valve Name Value Normal Range AV Vmax 2.12 m/sec - AV VTI 22.37 cm - AV peak gradient 17.95 mmHg - AV mean gradient 7.29 mmHg - LVOT diameter 2.01 cm - LVOT Vmax 1.8 m/sec - LVOT VTI 27.17 cm - LVOT peak gradient 12.91 mmHg - LVOT mean gradient 6.83 mmHg - SV LVOT 86.42 ml - ANITA (continuity Vmax) 2.7 cm2 - ANITA (continuity VTI) 3.86 cm2 - Ascending Ao 3.18 cm - Tricuspid Valve Name Value Normal Range TV E-wave Vmax 0.88 m/sec - TR Vmax 3.01 m/sec - TR peak gradient 36.27 mmHg - RAP 8 mmHg - RVSP 44 mmHg - IVC diameter 2.65 cm (1.2 - 2.3) Pulmonic Valve/Qp:Qs Name Value Normal Range PV Vmax 1.22 m/sec - PV peak gradient 5.91 mmHg - RVOT Vmax 0.87 m/sec - RVOT VTI 13.32 cm - RVOT peak gradient 3 mmHg - PV acceleration time 110.37 msec - [place]/IV: Voiding Method External Female Catheter IV Catheter Type [Right Foot] INT / Saline Lock IV Catheter Type [Left Forearm Peripheral IV ] IV Catheter Type [Left Wrist] INT / Saline Lock IV Catheter Type [Right Hand] INT / Saline Lock IV Catheter Type [Right INT / Saline Lock Antecubital] IV Catheter Type [Right Upper Mid-line arm] IV Catheter Type [Left Triple Lumen Cath Internal Jugular] IV Catheter Type [Left Hand] Peripheral IV IV Catheter Type [Left Peripheral IV Antecubital] Active Medications - Current Medications Current Medications: Generic Name Dose Route Start Last Admin Trade Name Freq PRN Reason Stop Dose Admin Acetaminophen 650 mg 10/05/20 16:34 11/25/20 23:02 Acetaminophen 325 Mg/10.15 Ml Oral Liqd Unit Dose FEEDTUBE 650 mg Q6H PRN Administration Non Cardiac Pain or Temp>100.5 Albuterol 2.5 mg 11/05/20 13:03 11/06/20 13:04 Albuterol 2.5 Mg/3 Ml Nebu IH 2.5 mg Q4HRT PRN Administration Shortness Of Breath Lipase/Protease/Amylase 1 each 10/05/20 11:09 Lipase 10,500/Protease 25,000/Amylase 43,750 (Units) Dr Barakat FEEDTUBE PRN PRN For Clogged Feeding Tube Enoxaparin Sodium 40 mg 10/22/20 10:00 11/25/20 09:19 Enoxaparin 40 Mg/0.4 Ml Inj SUB-Q 40 mg DAILY ERINN Administration Protocol Famotidine 20 mg 10/07/20 10:00 11/25/20 22:58 Famotidine 20 Mg Tab PO 20 mg BID ERINN Administration Furosemide 40 mg 10/17/20 10:00 11/25/20 09:19 Furosemide 40 Mg Tab PO 40 mg QDAY ERINN Administration Hydralazine HCl 20 mg 10/07/20 11:49 10/17/20 07:20 Hydralazine 20 Mg/1 Ml Inj IV 20 mg Q6H PRN Administration SBP >170 Hydralazine HCl 50 mg 10/17/20 09:00 11/26/20 05:26 Hydralazine 25 Mg Tab PO 50 mg Q8HR ERINN Administration Dextrose 1,000 mls @ 75 mls/hr 10/13/20 11:00 11/26/20 03:16 D10w IV 75 mls/hr DIRECT ERINN Administration Labetalol HCl 300 mg 11/16/20 17:00 11/26/20 08:22 Labetalol 200 Mg Tab PO 300 mg TID ERINN Administration Simple Syrup 15 ml 10/05/20 11:09 Simple Syrup 15 Ml FEEDTUBE PRN PRN Hypoglycemia Simple Syrup 30 ml 10/05/20 11:09 Simple Syrup 15 Ml FEEDTUBE PRN PRN Hypoglycemia Sodium Bicarbonate 325 mg 10/05/20 11:09 11/24/20 11:51 Sodium Bicarbonate 325 Mg Tab FEEDTUBE 325 mg PRN PRN Administration For Clogged Feeding Tube Sodium Bicarbonate 1,300 mg 10/13/20 14:00 11/26/20 08:22 Sodium Bicarbonate 650 Mg Tab PO 1,300 mg TID ERINN Administration Topiramate 50 mg 10/05/20 11:00 11/25/20 22:59 Topiramate Tab 25 Mg Tab PO 50 mg Q12HR ERINN Administration Nutrition/Malnutrition Assess - Dietary Evaluation Nutrition/Malnutrition Findings: Nutrition Notes Start: 10/04/20 11:13 Freq: Status: Active Protocol: Document 11/24/20 11:24 CW (Rec: 11/24/20 11:47 CW [id number]) Nutrition Notes Initial or Follow up Reassessment Current Diagnosis Acute Kidney Injury, Respiratory Failure Other Pertinent Diagnosis C-Diff, Cardiac arrest, s/p c- section and supracervical hysterectomy Current Diet Jevity 1.2 at 60 ml/hr Labs/Tests BG 108 Pertinent Medications Lasix D10w at 75ml/hr Height 5 ft 8 in Weight 102.5 kg [place] Body Weight (kg) 63.63 BMI 34.3 Weight change and time frame 2.4% weight loss x 1 week; likely d/t diuertics usage Weight Status Obese Subjective/Other Information F/U for TF tolerance, POC. T- Piece in place. POC. Pt continues to tolerate TF. Pt has vaginal rash that's being treated by wound care. Awaiting SNF placement. Percent of energy/protein needs met: 100%/96% Burn Absent Trauma Absent GI Symptoms None Food Allergy Yes Current % PO Negligible Minimum of two criteria Yes Interpretation of Weight Loss (severe) >2% in 1 week Fluid Accumulation Mild (non-severe) #2 Nutrition Diagnosis Malnutrition Diagnosis Progress(for reassessment Continues documentation) #1 Nutrition Diagnosis Inadequate oral intake Diagnosis Progress(for reassessment Continues documentation) Is patient on ventilator? No Is Patient Ambulatory and/or Out of Bed No REE-(Trevorton-St. Jeor-confined to bed) 2142.048 Kcal/Kg value to use for calculation 16 Approximate Energy Requirements Using 1640 kcal/Kg Calculation Used for Recommendations Kcal/kg Additional Notes Protein needs are 66-83g (0.8- 1g/kg AdjBW 83kg) Fluid needs are 1ml/kcal Nutrition Intervention Change Diet Order: Continue Nutrition Support: Jevity 1.2 at 60ml/hr. Flush 100ml q4h. Kcal 1,728 Protein (gm) 80 Fluid (mL) 1,162 Goal #1 TF tolerance Goal #2 Meet at least 75% of energy and protein needs Anticipated Discharge Needs: Unable to determine at this time Follow-Up By: 12/01/20 Additional Comments F/U for TF tolerance, stable weight, POC
[2020-11-26] MEDS: FAMOTIDINE 20 MG TAB PO SCH ×2 (11:04→22:19)
[2020-11-26] MEDS: ENOXAPARIN 40 MG/0.4 ML INJ SUB-Q SCH (11:04)
[2020-11-26] MEDS: FUROSEMIDE 40 MG TAB PO SCH (11:04)
[2020-11-26] MEDS: TOPIRAMATE TAB 25 MG TAB PO SCH ×2 (11:26→22:20)
[2020-11-27] MEDS: hydrALAZINE 25 MG TAB PO SCH ×3 (05:13→21:05)
[2020-11-27] MEDS: DEXTROSE 10% IN WATER 1,000 ML IV SCH (05:22)
[2020-11-27] MEDS: ENOXAPARIN 40 MG/0.4 ML INJ SUB-Q SCH (09:17)
[2020-11-27] MEDS: FUROSEMIDE 40 MG TAB PO SCH (09:18)
[2020-11-27] MEDS: SODIUM BICARBONATE 650 MG TAB PO SCH ×3 (09:19→21:05)
[2020-11-27] MEDS: FAMOTIDINE 20 MG TAB PO SCH ×2 (09:20→21:05)
[2020-11-27] MEDS: TOPIRAMATE TAB 25 MG TAB PO SCH ×2 (09:21→21:05)
--- NOTE | 2020-11-27 09:28 | Progress Note ---
Assessment and Plan Assessment and plan: Clinically no change --Cardiac arrest; 10/07/2020 ,status post CPR --Acute hypoxic brain injury; Supportive care, closely monitor --Acute hypoxic respiratory failure: Tracheostomy on T-piece , today on 4.5 L oxygen, saturating 100% Supportive care, Pulmonary critical following --Persistent hypoglycemia; patient is requiring continuous D10 W infusion CT abdomen done to rule out insulinoma, CT abdomen report negative for pancreatic tumor We will closely monitor COVID-19 negative C. difficile positive; Patient on contact isolation Completed treatment --Sepsis; received antibiotics Continue to monitor off antibiotics ID following --COVID-19 test negative; 10/08/2020 --Acute metabolic encephalopathy --Acute kidney injury; vasomotor nephropathy Resolved, renal function within normal limits, closely monitor --Shock; monitor of pressors Blood pressures reasonable level --DIC; sepsis, septic shock, resolved --History of preeclampsia; / hemorrhage Status post hysterectomy --History of C. difficile colitis; completed oral vancomycin --DVT/SVT and right upper extremity Very poor prognosis, Consults recommendations noted and appreciated We will closely monitor the patient and adjust management as needed Plan of care reviewed with the patient's nurse. Patient is clinically stable Pending placement,discharge to SNF when placement is processed Plan of care reviewed with the patient's nurse Critical care statement The high probability of a clinically significant, sudden or life threatening deterioration of the [MULTIPLE ORGAN] system(s) required my full and direct attention, intervention and personal management. The aggregate critical care time was [31] minutes. This time is in addition to time spent performing reported procedures but includes the following: [X] Data Review and interpretation [X] Patient assessment and monitoring of vital signs [X] Documentation [X] Medication orders and management 30 y/o female patient with Eclampsia/help syndrome, s/p emergent section with DIC, hemorrhage, supracervical abdominal hysterectomy, acute respiratory failure , tracheostomy on T-piece with morbid obesity, s/p cardiac arrest 12/08/2019 status post CPR per ACLS, acute hypoxic brain injury Acute kidney injury improved, severe shock requiring pressors, DIC septic shock improved, history of C. difficile colitis completed treatment with vancomycin. Tracheostomy on T-piece, continues to require 5 L of oxygen. Herpetic flareup, ID started treatment with antibiotics, patient is waiting for SNF placement DC planning per case management 11/13/2020; patient is receiving herpes flareup treatment per ID 11/14/2020; clinically no change, awaiting SNF placement 11/15/2020; clinically no change, tracheostomy on T-piece on 5 L oxygen, awaiting placement 11/16/2020; patient awaiting placement 11/18/2020; abdominal CT scan negative for insulinoma or pancreatic tumor ,clinically no change Awaiting SNF placement 11/19/2020; remains on 4 L of oxygen tracheostomy via T-piece, awaiting SNF placement 11/27/2020; patient remains hypoglycemic on D10 W IV fluids, CT abdomen negative for insulinoma Remains stable awaiting SNF placement, tracheostomy on 5 L oxygen via T-piece 11/28/2020; awaiting SNF placement History Interval history: I have seen and examined the patient at the bedside in ICU Patient remains noncommunicative not in acute distress Tracheostomy on T-piece on 4 to 5 L of oxygen No new events reported by nursing staff Hospitalist Physical - Constitutional Vitals: Temp Pulse Resp BP Pulse Ox 99.3 F 110 H 26 H 100/78 96 11/27/20 07:00 11/27/20 09:00 11/27/20 09:00 11/27/20 09:00 11/27/20 09:00 General appearance: Present: no acute distress, well-nourished, obese, other (Noncommunicative) - EENT Eyes: Present: PERRL, EOM intact - Neck Neck: Present: supple, normal ROM - Respiratory Respiratory effort: normal Respiratory: bilateral: diminished, rhonchi, negative: rales, wheezing - Cardiovascular Rhythm: regular Heart Sounds: Present: S1 & S2 - Extremities Extremities: no ischemia, No edema - Abdominal General gastrointestinal: soft, non-tender, non-distended, normal bowel sounds, other (PEG tube in place) - Integumentary Integumentary: Present: clear, warm - Psychiatric Psychiatric: other (Noncommunicative) - Neurologic Neurologic: other (Noncommunicative) HEART Score - HEART Score Age: < 45 Risk factors: 1-2 risk factors - Critical Actions Critical Actions: >7 pts:50-65% risk of adverse cardiac event. Early invasive measures Results - Labs CBC & Chem 7: 11/26/20 04:37 11/26/20 04:37 Labs: Laboratory Last Values WBC 9.6 K/mm3 (4.5-11.0) 11/26/20 04:37 RBC 4.53 M/mm3 (3.65-5.03) 11/26/20 04:37 Hgb 12.5 gm/dl (10.1-14.3) 11/26/20 04:37 Hgb Comment See scanned result 10/04/20 Unknown Hct 37.1 % (30.3-42.9) 11/26/20 04:37 MCV 82 fl (79-97) 11/26/20 04:37 MCH 28 pg (28-32) 11/26/20 04:37 MCHC 34 % (30-34) 11/26/20 04:37 RDW 15.4 % (13.2-15.2) H 11/26/20 04:37 Plt Count 290 K/mm3 (140-440) 11/26/20 04:37 Lymph % (Auto) 18.9 % (13.4-35.0) 11/26/20 04:37 [place] % (Auto) 10.1 % (0.0-7.3) H 11/26/20 04:37 Eos % (Auto) 2.2 % (0.0-4.3) 11/26/20 04:37 Baso % (Auto) 0.4 % (0.0-1.8) 11/26/20 04:37 Lymph # (Auto) 1.8 K/mm3 (1.2-5.4) 11/26/20 04:37 [place] # (Auto) 1.0 K/mm3 (0.0-0.8) H 11/26/20 04:37 Eos # (Auto) 0.2 K/mm3 (0.0-0.4) 11/26/20 04:37 Baso # (Auto) 0.0 K/mm3 (0.0-0.1) 11/26/20 04:37 Add Manual Diff Complete 10/29/20 07:56 Total Counted 100 10/29/20 07:56 Seg Neutrophils % 68.4 % (40.0-70.0) 11/26/20 04:37 Seg Neuts % (Manual) 80.0 % (40.0-70.0) H 10/29/20 07:56 Band Neutrophils % 2.0 % 10/15/20 05:50 Lymphocytes % (Manual) 15.0 % (13.4-35.0) 10/29/20 07:56 Reactive Lymphs % (Man) 1.0 % 10/02/20 12:18 Monocytes % (Manual) 4.0 % (0.0-7.3) 10/29/20 07:56 Eosinophils % (Manual) 1.0 % (0.0-4.3) 10/29/20 07:56 Myelocytes % 2.0 % 10/02/20 13:05 Metamyelocytes % 1.0 % 10/14/20 04:00 Nucleated RBC % Not Reportable 10/29/20 07:56 Seg Neutrophils # 6.6 K/mm3 (1.8-7.7) 11/26/20 04:37 Seg Neutrophils # Man 10.9 K/mm3 (1.8-7.7) H 10/29/20 07:56 Band Neutrophils # 0.0 K/mm3 10/29/20 07:56 Lymphocytes # (Manual) 2.0 K/mm3 (1.2-5.4) 10/29/20 07:56 Abs React Lymphs (Man) 0.0 K/mm3 10/29/20 07:56 Monocytes # (Manual) 0.5 K/mm3 (0.0-0.8) 10/29/20 07:56 Eosinophils # (Manual) 0.1 K/mm3 (0.0-0.4) 10/29/20 07:56 Basophils # (Manual) 0.0 K/mm3 (0.0-0.1) 10/29/20 07:56 Metamyelocytes # 0.0 K/mm3 10/29/20 07:56 Myelocytes # 0.0 K/mm3 10/29/20 07:56 Promyelocytes # 0.0 K/mm3 10/29/20 07:56 Blast Cells # 0.0 K/mm3 10/29/20 07:56 WBC Morphology Not Reportable 10/29/20 07:56 Hypersegmented Neuts Not Reportable 10/29/20 07:56 Hyposegmented Neuts Not Reportable 10/29/20 07:56 Hypogranular Neuts Not Reportable 10/29/20 07:56 Smudge Cells Not Reportable 10/29/20 07:56 Toxic Granulation Not Reportable 10/29/20 07:56 Toxic Vacuolation Not Reportable 10/29/20 07:56 Dohle Bodies Not Reportable 10/29/20 07:56 Pelger-Huet Anomaly Not Reportable 10/29/20 07:56 Ester Rods Not Reportable 10/29/20 07:56 Platelet Estimate Consistent w auto 10/29/20 07:56 Clumped Platelets Not Reportable 10/29/20 07:56 Plt Clumps, EDTA Not Reportable 10/29/20 07:56 Large Platelets Few 10/29/20 07:56 Giant Platelets Not Reportable 10/29/20 07:56 Platelet Satelliting Not Reportable 10/29/20 07:56 Plt Morphology Comment Not Reportable 10/29/20 07:56 RBC Morphology Not Reportable 10/29/20 07:56 Dimorphic RBCs Not Reportable 10/29/20 07:56 Polychromasia Rare 10/29/20 07:56 Hypochromasia Few 10/29/20 07:56 Poikilocytosis Not Reportable 10/29/20 07:56 Anisocytosis Not Reportable 10/29/20 07:56 Microcytosis Not Reportable 10/29/20 07:56 Macrocytosis Not Reportable 10/29/20 07:56 Spherocytes Not Reportable 10/29/20 07:56 Pappenheimer Bodies Not Reportable 10/29/20 07:56 Sickle Cells Not Reportable 10/29/20 07:56 Target Cells Few 10/29/20 07:56 Tear Drop Cells Not Reportable 10/29/20 07:56 Ovalocytes Not Reportable 10/29/20 07:56 Stomatocytes Few 10/14/20 04:00 Helmet Cells Not Reportable 10/29/20 07:56 [place] Bodies Not Reportable 10/29/20 07:56 Elcho Rings Not Reportable 10/29/20 07:56 Antoine Cells Not Reportable 10/29/20 07:56 Bite Cells Not Reportable 10/29/20 07:56 Crenated Cell Not Reportable 10/29/20 07:56 Elliptocytes Not Reportable 10/29/20 07:56 Acanthocytes (Spur) Not Reportable 10/29/20 07:56 Rouleaux Not Reportable 10/29/20 07:56 Hemoglobin C Crystals Not Reportable 10/29/20 07:56 Schistocytes Not Reportable 10/29/20 07:56 Malaria parasites Not Reportable 10/29/20 07:56 Sickle Cell Solubility See scanned result 10/04/20 Unknown Hemoglobin A See scanned result 10/04/20 Unknown Hemoglobin A2 See scanned result 10/04/20 Unknown Hemoglobin A2 Prime See scanned result 10/04/20 Unknown Hemoglobin C See scanned result 10/04/20 Unknown Hemoglobin D See scanned result 10/04/20 Unknown Hemoglobin E See scanned result 10/04/20 Unknown Hgb F Diffential Stain See scanned result 10/04/20 Unknown Hemoglobin F Quant See scanned result 10/04/20 Unknown Hemoglobin G See scanned result 10/04/20 Unknown Hemoglobin S See scanned result 10/04/20 Unknown Hemoglobin [place] See scanned result 10/04/20 Unknown Hemoglobin [place] See scanned result 10/04/20 Unknown Hemoglobin Analilia See scanned result 10/04/20 Unknown Variant Hemoglobin See scanned result 10/04/20 Unknown Abnorm Hgb IEF Confirm See scanned result 10/04/20 Unknown Hemoglobin Interpret See scanned result 10/04/20 Unknown Hemoglobinopathy Note See scanned result 10/04/20 Unknown Sharad Bodies Not Reportable 10/29/20 07:56 Hem Pathologist Commnt No 10/29/20 07:56 PT 13.6 Sec. (12.2-14.9) 10/21/20 13:54 INR 1.06 (0.87-1.13) 10/21/20 13:54 APTT 31.6 Sec. (24.2-36.6) 10/03/20 00:40 Fibrinogen 336 mg/dl (211-480) 10/04/20 10:00 D-Dimer 1974.47 ng/mlDDU (0-234) H 11/11/20 13:50 ABG pH 7.459 pH Units (7.350-7.450) H 10/26/20 10:30 POC ABG pCO2 20.7 mmHg (32.0-48.0) L 10/13/20 07:18 ABG pCO2 32.4 mm Hg 10/26/20 10:30 POC ABG pO2 137.9 mmHg (83-108) H 10/13/20 07:18 ABG pO2 112.2 mm Hg (80.0-90.0) H 10/26/20 10:30 POC ABG HCO3 14.8 10/13/20 07:18 ABG HCO3 22.5 mmol/L (20.0-26.0) 10/26/20 10:30 ABG O2 Saturation 98.2 % (95.0-99.0) 10/26/20 10:30 ABG O2 Content 18.5 (0.0-44) 10/26/20 10:30 POC ABG Base Excess -6.9 10/13/20 07:18 ABG Base Excess -0.6 mmol/L (-2.0-3.0) 10/26/20 10:30 ABG Hemoglobin 13.5 gm/dl (12.0-16.0) 10/26/20 10:30 ABG Oxyhemoglobin 98.3 (94-98) H 10/13/20 07:18 ABG Carboxyhemoglobin 1.3 % (0.0-5.0) 10/26/20 10:30 ABG Methemoglobin 0.5 % (0.0-1.5) 10/26/20 10:30 ABG Sodium 135.9 mmol/L (136.0-145.0) L 10/13/20 07:18 ABG Potassium 3.7 mmol/L (3.40-4.50) 10/13/20 07:18 ABG Chloride 111.0 mmol/L (98-107) H 10/13/20 07:18 ABG Glucose 109 mg/dL (65-95) H 10/13/20 07:18 VBG pH 6.949 (7.320-7.420) L* 10/02/20 Unknown Oxyhemoglobin 96.5 % (95.0-99.0) 10/26/20 10:30 Carboxyhemoglobin 0.3 (0.5-1.5) L 10/13/20 07:18 FiO2 25 % 10/26/20 10:30 Sodium 139 mmol/L (137-145) 11/26/20 04:37 Potassium 3.6 mmol/L (3.6-5.0) 11/26/20 04:37 Chloride 101.0 mmol/L (98-107) 11/26/20 04:37 Carbon Dioxide 26 mmol/L (22-30) 11/26/20 04:37 Anion Gap 16 mmol/L 11/26/20 04:37 BUN 9 mg/dL (7-17) 11/26/20 04:37 Creatinine 0.6 mg/dL (0.6-1.2) 11/26/20 04:37 Estimated GFR > 60 ml/min 11/26/20 04:37 BUN/Creatinine Ratio 15 % 11/26/20 04:37 Glucose 109 mg/dL (65-100) H 11/26/20 04:37 POC Glucose 81 mg/dL (70-105) 11/27/20 05:49 Random Insulin 43.2 uIU/mL (<=19.6) H 11/02/20 19:19 Proinsulin See scanned result 11/02/20 19:19 C-Peptide 6.23 ng/mL (0.80-3.85) H 11/02/20 19:19 Lactic Acid 1.90 mmol/L (0.7-2.0) 10/04/20 22:00 Uric Acid 7.5 mg/dL (3.5-7.6) 10/02/20 13:05 Calcium 9.5 mg/dL (8.4-10.2) 11/26/20 04:37 Ionized Calcium 4.4 mg/dL (4.8-5.6) L 10/07/20 21:00 Phosphorus 4.60 mg/dL (2.5-4.5) H 11/13/20 10:05 Magnesium 2.10 mg/dL (1.7-2.3) 11/13/20 10:05 Total Bilirubin 0.50 mg/dL (0.1-1.2) 11/26/20 04:37 AST 51 units/L (5-40) H 11/26/20 04:37 ALT 42 units/L (7-56) 11/26/20 04:37 Alkaline Phosphatase 117 units/L (35-129) 11/26/20 04:37 Lactate Dehydrogenase 769 units/L (91-180) H 10/02/20 13:05 C-Reactive Protein 0.70 mg/dL (0.00-1.30) 11/11/20 13:50 NT-Pro-B Natriuret Pep 2788 pg/mL (0-450) H 10/04/20 10:00 Total Protein 7.8 g/dL (6.3-8.2) 11/26/20 04:37 Albumin 3.9 g/dL (3.9-5) 11/26/20 04:37 Albumin/Globulin Ratio 1.0 % 11/26/20 04:37 Procalcitonin < 0.05 ng/mL (<0.15) 11/11/20 13:50 Arterial Blood Glucose 109 mg/dL (65-95) H 10/13/20 07:18 Arterial Blood Ionized Calcium 4.6 mg/dL (4.6-5.3) 10/13/20 07:18 Urine Color Yellow (Yellow) 11/11/20 13:50 Urine Turbidity Cloudy (Clear) 11/11/20 13:50 Urine pH 6.0 (5.0-7.0) 11/11/20 13:50 Ur Specific [place] 1.013 (1.003-1.030) 11/11/20 13:50 Urine Protein 100 mg/dl mg/dL (Negative) 11/11/20 13:50 Urine Glucose (UA) Neg mg/dL (Negative) 11/11/20 13:50 Urine Ketones Neg mg/dL (Negative) 11/11/20 13:50 Urine Blood Mod (Negative) 11/11/20 13:50 Urine Nitrite Pos (Negative) 11/11/20 13:50 Urine Bilirubin Neg (Negative) 11/11/20 13:50 Urine Urobilinogen 2.0 mg/dL (<2.0) 11/11/20 13:50 Ur Leukocyte Esterase Lg (Negative) 11/11/20 13:50 Urine WBC (Auto) > 182.0 /HPF (0.0-6.0) H 11/11/20 13:50 Urine RBC (Auto) > 182.0 /HPF (0.0-6.0) 11/11/20 13:50 U Epithel Cells (Auto) 1.0 /HPF (0-13.0) 11/11/20 13:50 Urine Bacteria (Auto) 4+ /HPF (Negative) 11/11/20 13:50 Urine WBC Clumps 3+ /HPF 11/11/20 13:50 Calcium Oxalate Crystal Few 11/11/20 13:50 Urine Mucus Few /HPF 11/11/20 13:50 Vancomycin Trough 12.6 ug/mL (5.0-20.0) 10/21/20 13:54 Random Vancomycin 10.7 ug/mL (0-40.0) 10/16/20 13:09 Phenytoin 5.7 ug/mL (10.0-20.0) L 10/13/20 07:00 C. difficile Tox (PCR) Positive (Negative) 10/16/20 10:22 Coronavirus (PCR) Negative (Negative) 10/08/20 14:15 Blood Type O POSITIVE 10/02/20 12:50 Antibody Screen Negative 10/02/20 12:50 Crossmatch See Detail 10/02/20 12:50 - Diagnostic Impressions Diagnostic Impressions: Echocardiogram 10/03/20 13:42 Transthoracic Echocardiogram Indication: S/P Cardiac Arrest R/O Cardiomyopathy BP: 133/71 Conclusions *Global left ventricular systolic function is normal. *The estimated ejection fraction is 60-65%. *There is trace of mitral regurgitation. *The right 0heart chambers are both slightly dilated. *There is mild tricuspid regurgitation. *There is mild-moderate pulmonary hypertension. *The right ventricular systolic pressure is calculated at 44 mmHg. *The study quality is technically difficult. Findings Procedure Info: The study quality is technically difficult. The study is technically limited due to patient body habitus. The study was technically limited due to the patient's inability to lay in the left lateral decubitus position. Left Ventricle: The left ventricular chamber size is normal. There is no left ventricular hypertrophy. Global left ventricular systolic function is normal. The estimated ejection fraction is 60-65%. Left Atrium: The left atrial chamber size is normal. Right Ventricle: The right ventricle is slightly dilated. Right Atrium: The right atrium is mildly dilated. Aortic Valve: The aortic valve leaflets are mildly thickened. There is no evidence of aortic regurgitation. There is no evidence of aortic stenosis. Mitral Valve: The mitral valve leaflets are mildly thickened. There is trace of mitral regurgitation. There is no evidence of mitral stenosis. Tricuspid Valve: There is mild tricuspid regurgitation. The right ventricular systolic pressure is calculated at 44 mmHg. There is evidence of mild pulmonary hypertension. Pulmonic Valve: There is trace pulmonic regurgitation. Pericardium: There is no pericardial effusion. Aorta: There is no dilatation of the ascending aorta. There is no dilatation of the aortic root. Venous: The inferior vena cava is dilated. Measurements Chambers 2D Name Value Normal Range IVSd (2D) 1 cm (0.6 - 1.1) LVPWd (2D) 1.01 cm (0.6 - 1.1) LVIDd (2D) 4.58 cm (3.7 - 5.6) LVIDs (2D) 3.17 cm (2 - 3.8) LV FS (2D) 30.93 % - EF Teichholz (2D) 58.66 % - Ao root diameter (2D) 2.94 cm (2 - 3.7) Volumes/Mass Name Value Normal Range LA ESV SP 4CH (A/L) 72.82 ml - LA ESV SP 2CH (A/L) 66.86 ml - LA ESV BP (A/L) 74.49 ml - LA ESV SP 4CH (MOD) 71.03 ml - LA ESV SP 2CH (MOD) 64.3 ml - LV EDV SP 4CH (MOD) 98.82 ml - LV ESV SP 4CH (MOD) 24.8 ml - EF SP 4CH (MOD) 74.9 % - LV EDV SP 2CH (MOD) 86.1 ml - LV ESV SP 2CH (MOD) 36.93 ml - EF SP 2CH (MOD) 57.11 % - LV EDV BP 94.4 ml - LV ESV BP 32.66 ml - BP EF (MOD) 65.4 % - Diastolic/Systolic Function Name Value Normal Range MV E-wave Vmax 1.04 m/sec - MV deceleration time 160.46 msec - MV A-wave Vmax 0.92 m/sec - MV E:A ratio 1.14 ratio - Aortic Valve Name Value Normal Range AV Vmax 2.12 m/sec - AV VTI 22.37 cm - AV peak gradient 17.95 mmHg - AV mean gradient 7.29 mmHg - LVOT diameter 2.01 cm - LVOT Vmax 1.8 m/sec - LVOT VTI 27.17 cm - LVOT peak gradient 12.91 mmHg - LVOT mean gradient 6.83 mmHg - SV LVOT 86.42 ml - ANITA (continuity Vmax) 2.7 cm2 - ANITA (continuity VTI) 3.86 cm2 - Ascending Ao 3.18 cm - Tricuspid Valve Name Value Normal Range TV E-wave Vmax 0.88 m/sec - TR Vmax 3.01 m/sec - TR peak gradient 36.27 mmHg - RAP 8 mmHg - RVSP 44 mmHg - IVC diameter 2.65 cm (1.2 - 2.3) Pulmonic Valve/Qp:Qs Name Value Normal Range PV Vmax 1.22 m/sec - PV peak gradient 5.91 mmHg - RVOT Vmax 0.87 m/sec - RVOT VTI 13.32 cm - RVOT peak gradient 3 mmHg - PV acceleration time 110.37 msec - [place]/IV: Voiding Method External Female Catheter IV Catheter Type [Right Foot] INT / Saline Lock IV Catheter Type [Left Forearm Peripheral IV ] IV Catheter Type [Left Wrist] INT / Saline Lock IV Catheter Type [Right Hand] INT / Saline Lock IV Catheter Type [Right INT / Saline Lock Antecubital] IV Catheter Type [Right Upper Mid-line arm] IV Catheter Type [Left Triple Lumen Cath Internal Jugular] IV Catheter Type [Left Hand] Peripheral IV IV Catheter Type [Left Peripheral IV Antecubital] Active Medications - Current Medications Current Medications: Generic Name Dose Route Start Last Admin Trade Name Freq PRN Reason Stop Dose Admin Acetaminophen 650 mg 10/05/20 16:34 11/25/20 23:02 Acetaminophen 325 Mg/10.15 Ml Oral Liqd Unit Dose FEEDTUBE 650 mg Q6H PRN Administration Non Cardiac Pain or Temp>100.5 Albuterol 2.5 mg 11/05/20 13:03 11/06/20 13:04 Albuterol 2.5 Mg/3 Ml Nebu IH 2.5 mg Q4HRT PRN Administration Shortness Of Breath Lipase/Protease/Amylase 1 each 10/05/20 11:09 Lipase 10,500/Protease 25,000/Amylase 43,750 (Units) Dr Barakat FEEDTUBE PRN PRN For Clogged Feeding Tube Enoxaparin Sodium 40 mg 10/22/20 10:00 11/27/20 09:17 Enoxaparin 40 Mg/0.4 Ml Inj SUB-Q 40 mg DAILY ERINN Administration Protocol Famotidine 20 mg 10/07/20 10:00 11/27/20 09:20 Famotidine 20 Mg Tab PO 20 mg BID ERINN Administration Furosemide 40 mg 10/17/20 10:00 11/27/20 09:18 Furosemide 40 Mg Tab PO 40 mg QDAY ERINN Administration Hydralazine HCl 20 mg 10/07/20 11:49 10/17/20 07:20 Hydralazine 20 Mg/1 Ml Inj IV 20 mg Q6H PRN Administration SBP >170 Hydralazine HCl 50 mg 10/17/20 09:00 11/27/20 05:13 Hydralazine 25 Mg Tab PO 50 mg Q8HR ERINN Administration Dextrose 1,000 mls @ 75 mls/hr 10/13/20 11:00 11/27/20 05:22 D10w IV 75 mls/hr DIRECT ERINN Administration Labetalol HCl 300 mg 11/16/20 17:00 11/27/20 09:18 Labetalol 200 Mg Tab PO 300 mg TID ERINN Administration Simple Syrup 15 ml 10/05/20 11:09 Simple Syrup 15 Ml FEEDTUBE PRN PRN Hypoglycemia Simple Syrup 30 ml 10/05/20 11:09 Simple Syrup 15 Ml FEEDTUBE PRN PRN Hypoglycemia Sodium Bicarbonate 325 mg 10/05/20 11:09 11/24/20 11:51 Sodium Bicarbonate 325 Mg Tab FEEDTUBE 325 mg PRN PRN Administration For Clogged Feeding Tube Sodium Bicarbonate 1,300 mg 10/13/20 14:00 11/27/20 09:19 Sodium Bicarbonate 650 Mg Tab PO 1,300 mg TID ERINN Administration Topiramate 50 mg 10/05/20 11:00 11/27/20 09:21 Topiramate Tab 25 Mg Tab PO 50 mg Q12HR ERINN Administration Nutrition/Malnutrition Assess - Dietary Evaluation Nutrition/Malnutrition Findings: Nutrition Notes Start: 10/04/20 11:13 Freq: Status: Active Protocol: Document 11/24/20 11:24 CW (Rec: 11/24/20 11:47 CW [id number]) Nutrition Notes Initial or Follow up Reassessment Current Diagnosis Acute Kidney Injury, Respiratory Failure Other Pertinent Diagnosis C-Diff, Cardiac arrest, s/p c- section and supracervical hysterectomy Current Diet Jevity 1.2 at 60 ml/hr Labs/Tests BG 108 Pertinent Medications Lasix D10w at 75ml/hr Height 5 ft 8 in Weight 102.5 kg [place] Body Weight (kg) 63.63 BMI 34.3 Weight change and time frame 2.4% weight loss x 1 week; likely d/t diuertics usage Weight Status Obese Subjective/Other Information F/U for TF tolerance, POC. T- Piece in place. POC. Pt continues to tolerate TF. Pt has vaginal rash that's being treated by wound care. Awaiting SNF placement. Percent of energy/protein needs met: 100%/96% Burn Absent Trauma Absent GI Symptoms None Food Allergy Yes Current % PO Negligible Minimum of two criteria Yes Interpretation of Weight Loss (severe) >2% in 1 week Fluid Accumulation Mild (non-severe) #2 Nutrition Diagnosis Malnutrition Diagnosis Progress(for reassessment Continues documentation) #1 Nutrition Diagnosis Inadequate oral intake Diagnosis Progress(for reassessment Continues documentation) Is patient on ventilator? No Is Patient Ambulatory and/or Out of Bed No REE-([facility]-confined to bed) 2142.048 Kcal/Kg value to use for calculation 16 Approximate Energy Requirements Using 1640 kcal/Kg Calculation Used for Recommendations Kcal/kg Additional Notes Protein needs are 66-83g (0.8- 1g/kg AdjBW 83kg) Fluid needs are 1ml/kcal Nutrition Intervention Change Diet Order: Continue Nutrition Support: Jevity 1.2 at 60ml/hr. Flush 100ml q4h. Kcal 1,728 Protein (gm) 80 Fluid (mL) 1,162 Goal #1 TF tolerance Goal #2 Meet at least 75% of energy and protein needs Anticipated Discharge Needs: Unable to determine at this time Follow-Up By: 12/01/20 Additional Comments F/U for TF tolerance, stable weight, POC
[2020-11-28] MEDS: hydrALAZINE 25 MG TAB PO SCH ×3 (06:02→22:47)
[2020-11-28] MEDS: DEXTROSE 10% IN WATER 1,000 ML IV SCH ×2 (06:32→19:59)
--- NOTE | 2020-11-28 08:10 | Progress Note ---
Assessment and Plan Assessment and plan: --Cardiac arrest; 10/07/2020 ,status post CPR --Acute hypoxic brain injury; Supportive care, closely monitor --Acute hypoxic respiratory failure: Tracheostomy on T-piece , today on 4.5 L oxygen, saturating 100% Supportive care, Pulmonary critical following --Persistent hypoglycemia; patient is requiring continuous D10 W infusion CT abdomen done to rule out insulinoma, CT abdomen report negative for pancreatic tumor We will closely monitor COVID-19 negative C. difficile positive; Patient on contact isolation Completed treatment --Sepsis; received antibiotics Continue to monitor off antibiotics ID following --COVID-19 test negative; 10/08/2020 --C. difficile colitis test; positive; 10/16/2020 --Acute metabolic encephalopathy --Acute kidney injury; vasomotor nephropathy Resolved, renal function within normal limits, closely monitor --Shock; monitor of pressors Blood pressures reasonable level --DIC; sepsis, septic shock, resolved --History of preeclampsia; / hemorrhage Status post hysterectomy --History of C. difficile colitis; completed oral vancomycin --DVT/SVT and right upper extremity Very poor prognosis, Consults recommendations noted and appreciated We will closely monitor the patient and adjust management as needed Plan of care reviewed with the patient's nurse. Patient is clinically stable Pending placement,discharge to SNF when placement is processed Plan of care reviewed with the patient's nurse Critical care statement The high probability of a clinically significant, sudden or life threatening deterioration of the [MULTIPLE ORGAN] system(s) required my full and direct attention, intervention and personal management. The aggregate critical care time was [33] minutes. This time is in addition to time spent performing reported procedures but includes the following: [X] Data Review and interpretation [X] Patient assessment and monitoring of vital signs [X] Documentation [X] Medication orders and management 30 y/o female patient with Eclampsia/help syndrome, s/p emergent section with DIC, hemorrhage, supracervical abdominal hysterectomy, acute respiratory failure , tracheostomy on T-piece with morbid obesity, s/p cardiac arrest 12/08/2019 status post CPR per ACLS, acute hypoxic brain injury Acute kidney injury improved, severe shock requiring pressors, DIC septic shock improved, history of C. difficile colitis completed treatment with vancomycin. Tracheostomy on T-piece, continues to require 5 L of oxygen. Herpetic flareup, ID started treatment with antibiotics, patient is waiting for SNF placement DC planning per case management 11/13/2020; patient is receiving herpes flareup treatment per ID 11/14/2020; clinically no change, awaiting SNF placement 11/15/2020; clinically no change, tracheostomy on T-piece on 5 L oxygen, awaiting placement 11/16/2020; patient awaiting placement 11/18/2020; abdominal CT scan negative for insulinoma or pancreatic tumor ,clinically no change Awaiting SNF placement 11/19/2020; remains on 4 L of oxygen tracheostomy via T-piece, awaiting SNF placement 11/27/2020; patient remains hypoglycemic on D10 W IV fluids, CT abdomen negative for insulinoma Remains stable awaiting SNF placement, tracheostomy on 5 L oxygen via T-piece History Interval history: I have seen the patient in her room in ICU this morning Clinically no change, tracheostomy on 4 L oxygen Noncommunicative, vitals reviewed Hospitalist Physical - Constitutional Vitals: Temp Pulse Resp BP Pulse Ox 100.0 F H 105 H 20 106/71 96 11/28/20 03:35 11/28/20 06:02 11/28/20 06:00 11/28/20 06:02 11/28/20 06:00 General appearance: Present: no acute distress, well-nourished, obese, other (Noncommunicative) - EENT Eyes: Present: PERRL, EOM intact - Neck Neck: Present: supple, normal ROM - Respiratory Respiratory effort: normal Respiratory: bilateral: diminished, negative: rales, rhonchi, wheezing - Cardiovascular Rhythm: regular Heart Sounds: Present: S1 & S2 - Extremities Extremities: no ischemia Extremity abnormal: edema - Abdominal General gastrointestinal: soft, non-distended, other - Integumentary Integumentary: Present: clear, warm - Psychiatric Psychiatric: other (Noncommunicative) - Neurologic Neurologic: other (Encephalopathic noncommunicative) HEART Score - HEART Score Age: < 45 Risk factors: 1-2 risk factors - Critical Actions Critical Actions: >7 pts:50-65% risk of adverse cardiac event. Early invasive measures Results - Labs CBC & Chem 7: 11/26/20 04:37 11/26/20 04:37 Labs: Laboratory Last Values WBC 9.6 K/mm3 (4.5-11.0) 02/11/21 04:37 RBC 4.53 M/mm3 (3.65-5.03) 11/26/20 04:37 Hgb 12.5 gm/dl (10.1-14.3) 11/26/20 04:37 Hgb Comment See scanned result 10/04/20 Unknown Hct 37.1 % (30.3-42.9) 11/26/20 04:37 MCV 82 fl (79-97) 11/26/20 04:37 MCH 28 pg (28-32) 11/26/20 04:37 MCHC 34 % (30-34) 11/26/20 04:37 RDW 15.4 % (13.2-15.2) H 11/26/20 04:37 Plt Count 290 K/mm3 (140-440) 11/26/20 04:37 Lymph % (Auto) 18.9 % (13.4-35.0) 11/26/20 04:37 [place] % (Auto) 10.1 % (0.0-7.3) H 11/26/20 04:37 Eos % (Auto) 2.2 % (0.0-4.3) 11/26/20 04:37 Baso % (Auto) 0.4 % (0.0-1.8) 11/26/20 04:37 Lymph # (Auto) 1.8 K/mm3 (1.2-5.4) 11/26/20 04:37 [place] # (Auto) 1.0 K/mm3 (0.0-0.8) H 11/26/20 04:37 Eos # (Auto) 0.2 K/mm3 (0.0-0.4) 11/26/20 04:37 Baso # (Auto) 0.0 K/mm3 (0.0-0.1) 11/26/20 04:37 Add Manual Diff Complete 10/29/20 07:56 Total Counted 100 10/29/20 07:56 Seg Neutrophils % 68.4 % (40.0-70.0) 11/26/20 04:37 Seg Neuts % (Manual) 80.0 % (40.0-70.0) H 10/29/20 07:56 Band Neutrophils % 2.0 % 10/15/20 05:50 Lymphocytes % (Manual) 15.0 % (13.4-35.0) 10/29/20 07:56 Reactive Lymphs % (Man) 1.0 % 10/02/20 12:18 Monocytes % (Manual) 4.0 % (0.0-7.3) 10/29/20 07:56 Eosinophils % (Manual) 1.0 % (0.0-4.3) 10/29/20 07:56 Myelocytes % 2.0 % 10/02/20 13:05 Metamyelocytes % 1.0 % 10/14/20 04:00 Nucleated RBC % Not Reportable 10/29/20 07:56 Seg Neutrophils # 6.6 K/mm3 (1.8-7.7) 11/26/20 04:37 Seg Neutrophils # Man 10.9 K/mm3 (1.8-7.7) H 10/29/20 07:56 Band Neutrophils # 0.0 K/mm3 10/29/20 07:56 Lymphocytes # (Manual) 2.0 K/mm3 (1.2-5.4) 10/29/20 07:56 Abs React Lymphs (Man) 0.0 K/mm3 10/29/20 07:56 Monocytes # (Manual) 0.5 K/mm3 (0.0-0.8) 10/29/20 07:56 Eosinophils # (Manual) 0.1 K/mm3 (0.0-0.4) 10/29/20 07:56 Basophils # (Manual) 0.0 K/mm3 (0.0-0.1) 10/29/20 07:56 Metamyelocytes # 0.0 K/mm3 10/29/20 07:56 Myelocytes # 0.0 K/mm3 10/29/20 07:56 Promyelocytes # 0.0 K/mm3 10/29/20 07:56 Blast Cells # 0.0 K/mm3 10/29/20 07:56 WBC Morphology Not Reportable 10/29/20 07:56 Hypersegmented Neuts Not Reportable 10/29/20 07:56 Hyposegmented Neuts Not Reportable 10/29/20 07:56 Hypogranular Neuts Not Reportable 10/29/20 07:56 Smudge Cells Not Reportable 10/29/20 07:56 Toxic Granulation Not Reportable 10/29/20 07:56 Toxic Vacuolation Not Reportable 10/29/20 07:56 Dohle Bodies Not Reportable 10/29/20 07:56 Pelger-Huet Anomaly Not Reportable 10/29/20 07:56 Ester Rods Not Reportable 10/29/20 07:56 Platelet Estimate Consistent w auto 10/29/20 07:56 Clumped Platelets Not Reportable 10/29/20 07:56 Plt Clumps, EDTA Not Reportable 10/29/20 07:56 Large Platelets Few 10/29/20 07:56 Giant Platelets Not Reportable 10/29/20 07:56 Platelet Satelliting Not Reportable 10/29/20 07:56 Plt Morphology Comment Not Reportable 10/29/20 07:56 RBC Morphology Not Reportable 10/29/20 07:56 Dimorphic RBCs Not Reportable 10/29/20 07:56 Polychromasia Rare 10/29/20 07:56 Hypochromasia Few 10/29/20 07:56 Poikilocytosis Not Reportable 10/29/20 07:56 Anisocytosis Not Reportable 10/29/20 07:56 Microcytosis Not Reportable 10/29/20 07:56 Macrocytosis Not Reportable 10/29/20 07:56 Spherocytes Not Reportable 10/29/20 07:56 Pappenheimer Bodies Not Reportable 10/29/20 07:56 Sickle Cells Not Reportable 10/29/20 07:56 Target Cells Few 10/29/20 07:56 Tear Drop Cells Not Reportable 10/29/20 07:56 Ovalocytes Not Reportable 10/29/20 07:56 Stomatocytes Few 10/14/20 04:00 Helmet Cells Not Reportable 10/29/20 07:56 [place] Bodies Not Reportable 10/29/20 07:56 [place] Rings Not Reportable 10/29/20 07:56 [place] Cells Not Reportable 10/29/20 07:56 Bite Cells Not Reportable 10/29/20 07:56 Crenated Cell Not Reportable 10/29/20 07:56 Elliptocytes Not Reportable 10/29/20 07:56 Acanthocytes (Spur) Not Reportable 10/29/20 07:56 Rouleaux Not Reportable 10/29/20 07:56 Hemoglobin C Crystals Not Reportable 10/29/20 07:56 Schistocytes Not Reportable 10/29/20 07:56 Malaria parasites Not Reportable 10/29/20 07:56 Sickle Cell Solubility See scanned result 10/04/20 Unknown Hemoglobin A See scanned result 10/04/20 Unknown Hemoglobin A2 See scanned result 10/04/20 Unknown Hemoglobin A2 Prime See scanned result 10/04/20 Unknown Hemoglobin C See scanned result 10/04/20 Unknown Hemoglobin D See scanned result 10/04/20 Unknown Hemoglobin E See scanned result 10/04/20 Unknown Hgb F Diffential Stain See scanned result 10/04/20 Unknown Hemoglobin F Quant See scanned result 10/04/20 Unknown Hemoglobin G See scanned result 10/04/20 Unknown Hemoglobin S See scanned result 10/04/20 Unknown Hemoglobin O-Mcintyre See scanned result 10/04/20 Unknown Hemoglobin [place] See scanned result 10/04/20 Unknown Hemoglobin Analilia See scanned result 10/04/20 Unknown Variant Hemoglobin See scanned result 10/04/20 Unknown Abnorm Hgb IEF Confirm See scanned result 10/04/20 Unknown Hemoglobin Interpret See scanned result 10/04/20 Unknown Hemoglobinopathy Note See scanned result 10/04/20 Unknown Sharad Bodies Not Reportable 10/29/20 07:56 Hem Pathologist Commnt No 10/29/20 07:56 PT 13.6 Sec. (12.2-14.9) 10/21/20 13:54 INR 1.06 (0.87-1.13) 10/21/20 13:54 APTT 31.6 Sec. (24.2-36.6) 10/03/20 00:40 Fibrinogen 336 mg/dl (211-480) 10/04/20 10:00 D-Dimer 1974.47 ng/mlDDU (0-234) H 11/11/20 13:50 ABG pH 7.459 pH Units (7.350-7.450) H 10/26/20 10:30 POC ABG pCO2 20.7 mmHg (32.0-48.0) L 10/13/20 07:18 ABG pCO2 32.4 mm Hg 10/26/20 10:30 POC ABG pO2 137.9 mmHg (83-108) H 10/13/20 07:18 ABG pO2 112.2 mm Hg (80.0-90.0) H 10/26/20 10:30 POC ABG HCO3 14.8 10/13/20 07:18 ABG HCO3 22.5 mmol/L (20.0-26.0) 10/26/20 10:30 ABG O2 Saturation 98.2 % (95.0-99.0) 10/26/20 10:30 ABG O2 Content 18.5 (0.0-44) 10/26/20 10:30 POC ABG Base Excess -6.9 10/13/20 07:18 ABG Base Excess -0.6 mmol/L (-2.0-3.0) 10/26/20 10:30 ABG Hemoglobin 13.5 gm/dl (12.0-16.0) 10/26/20 10:30 ABG Oxyhemoglobin 98.3 (94-98) H 10/13/20 07:18 ABG Carboxyhemoglobin 1.3 % (0.0-5.0) 10/26/20 10:30 ABG Methemoglobin 0.5 % (0.0-1.5) 10/26/20 10:30 ABG Sodium 135.9 mmol/L (136.0-145.0) L 10/13/20 07:18 ABG Potassium 3.7 mmol/L (3.40-4.50) 10/13/20 07:18 ABG Chloride 111.0 mmol/L (98-107) H 10/13/20 07:18 ABG Glucose 109 mg/dL (65-95) H 10/13/20 07:18 VBG pH 6.949 (7.320-7.420) L* 10/02/20 Unknown Oxyhemoglobin 96.5 % (95.0-99.0) 10/26/20 10:30 Carboxyhemoglobin 0.3 (0.5-1.5) L 10/13/20 07:18 FiO2 25 % 10/26/20 10:30 Sodium 139 mmol/L (137-145) 11/26/20 04:37 Potassium 3.6 mmol/L (3.6-5.0) 11/26/20 04:37 Chloride 101.0 mmol/L (98-107) 11/26/20 04:37 Carbon Dioxide 26 mmol/L (22-30) 11/26/20 04:37 Anion Gap 16 mmol/L 11/26/20 04:37 BUN 9 mg/dL (7-17) 11/26/20 04:37 Creatinine 0.6 mg/dL (0.6-1.2) 11/26/20 04:37 Estimated GFR > 60 ml/min 11/26/20 04:37 BUN/Creatinine Ratio 15 % 11/26/20 04:37 Glucose 109 mg/dL (65-100) H 11/26/20 04:37 POC Glucose 111 mg/dL (70-105) H 11/27/20 23:38 Random Insulin 43.2 uIU/mL (<=19.6) H 11/02/20 19:19 Proinsulin See scanned result 11/02/20 19:19 C-Peptide 6.23 ng/mL (0.80-3.85) H 11/02/20 19:19 Lactic Acid 1.90 mmol/L (0.7-2.0) 10/04/20 22:00 Uric Acid 7.5 mg/dL (3.5-7.6) 10/02/20 13:05 Calcium 9.5 mg/dL (8.4-10.2) 11/26/20 04:37 Ionized Calcium 4.4 mg/dL (4.8-5.6) L 10/07/20 21:00 Phosphorus 4.60 mg/dL (2.5-4.5) H 11/13/20 10:05 Magnesium 2.10 mg/dL (1.7-2.3) 11/13/20 10:05 Total Bilirubin 0.50 mg/dL (0.1-1.2) 11/26/20 04:37 AST 51 units/L (5-40) H 11/26/20 04:37 ALT 42 units/L (7-56) 11/26/20 04:37 Alkaline Phosphatase 117 units/L (35-129) 11/26/20 04:37 Lactate Dehydrogenase 769 units/L (91-180) H 10/02/20 13:05 C-Reactive Protein 0.70 mg/dL (0.00-1.30) 11/11/20 13:50 NT-Pro-B Natriuret Pep 2788 pg/mL (0-450) H 10/04/20 10:00 Total Protein 7.8 g/dL (6.3-8.2) 11/26/20 04:37 Albumin 3.9 g/dL (3.9-5) 11/26/20 04:37 Albumin/Globulin Ratio 1.0 % 11/26/20 04:37 Procalcitonin < 0.05 ng/mL (<0.15) 11/11/20 13:50 Arterial Blood Glucose 109 mg/dL (65-95) H 10/13/20 07:18 Arterial Blood Ionized Calcium 4.6 mg/dL (4.6-5.3) 10/13/20 07:18 Urine Color Yellow (Yellow) 11/11/20 13:50 Urine Turbidity Cloudy (Clear) 11/11/20 13:50 Urine pH 6.0 (5.0-7.0) 11/11/20 13:50 Ur Specific Jean 1.013 (1.003-1.030) 11/11/20 13:50 Urine Protein 100 mg/dl mg/dL (Negative) 11/11/20 13:50 Urine Glucose (UA) Neg mg/dL (Negative) 11/11/20 13:50 Urine Ketones Neg mg/dL (Negative) 11/11/20 13:50 Urine Blood Mod (Negative) 11/11/20 13:50 Urine Nitrite Pos (Negative) 11/11/20 13:50 Urine Bilirubin Neg (Negative) 11/11/20 13:50 Urine Urobilinogen 2.0 mg/dL (<2.0) 11/11/20 13:50 Ur Leukocyte Esterase Lg (Negative) 11/11/20 13:50 Urine WBC (Auto) > 182.0 /HPF (0.0-6.0) H 11/11/20 13:50 Urine RBC (Auto) > 182.0 /HPF (0.0-6.0) 11/11/20 13:50 U Epithel Cells (Auto) 1.0 /HPF (0-13.0) 11/11/20 13:50 Urine Bacteria (Auto) 4+ /HPF (Negative) 11/11/20 13:50 Urine WBC Clumps 3+ /HPF 11/11/20 13:50 Calcium Oxalate Crystal Few 11/11/20 13:50 Urine Mucus Few /HPF 11/11/20 13:50 Vancomycin Trough 12.6 ug/mL (5.0-20.0) 10/21/20 13:54 Random Vancomycin 10.7 ug/mL (0-40.0) 10/16/20 13:09 Phenytoin 5.7 ug/mL (10.0-20.0) L 10/13/20 07:00 C. difficile Tox (PCR) Positive (Negative) 10/16/20 10:22 Coronavirus (PCR) Negative (Negative) 10/08/20 14:15 Blood Type O POSITIVE 10/02/20 12:50 Antibody Screen Negative 10/02/20 12:50 Crossmatch See Detail 10/02/20 12:50 - Diagnostic Impressions Diagnostic Impressions: Echocardiogram 10/03/20 13:42 Transthoracic Echocardiogram Indication: S/P Cardiac Arrest R/O Cardiomyopathy BP: 133/71 Conclusions *Global left ventricular systolic function is normal. *The estimated ejection fraction is 60-65%. *There is trace of mitral regurgitation. *The right 0heart chambers are both slightly dilated. *There is mild tricuspid regurgitation. *There is mild-moderate pulmonary hypertension. *The right ventricular systolic pressure is calculated at 44 mmHg. *The study quality is technically difficult. Findings Procedure Info: The study quality is technically difficult. The study is technically limited due to patient body habitus. The study was technically limited due to the patient's inability to lay in the left lateral decubitus position. Left Ventricle: The left ventricular chamber size is normal. There is no left ventricular hypertrophy. Global left ventricular systolic function is normal. The estimated ejection fraction is 60-65%. Left Atrium: The left atrial chamber size is normal. Right Ventricle: The right ventricle is slightly dilated. Right Atrium: The right atrium is mildly dilated. Aortic Valve: The aortic valve leaflets are mildly thickened. There is no evidence of aortic regurgitation. There is no evidence of aortic stenosis. Mitral Valve: The mitral valve leaflets are mildly thickened. There is trace of mitral regurgitation. There is no evidence of mitral stenosis. Tricuspid Valve: There is mild tricuspid regurgitation. The right ventricular systolic pressure is calculated at 44 mmHg. There is evidence of mild pulmonary hypertension. Pulmonic Valve: There is trace pulmonic regurgitation. Pericardium: There is no pericardial effusion. Aorta: There is no dilatation of the ascending aorta. There is no dilatation of the aortic root. Venous: The inferior vena cava is dilated. Measurements Chambers 2D Name Value Normal Range IVSd (2D) 1 cm (0.6 - 1.1) LVPWd (2D) 1.01 cm (0.6 - 1.1) LVIDd (2D) 4.58 cm (3.7 - 5.6) LVIDs (2D) 3.17 cm (2 - 3.8) LV FS (2D) 30.93 % - EF Teichholz (2D) 58.66 % - Ao root diameter (2D) 2.94 cm (2 - 3.7) Volumes/Mass Name Value Normal Range LA ESV SP 4CH (A/L) 72.82 ml - LA ESV SP 2CH (A/L) 66.86 ml - LA ESV BP (A/L) 74.49 ml - LA ESV SP 4CH (MOD) 71.03 ml - LA ESV SP 2CH (MOD) 64.3 ml - LV EDV SP 4CH (MOD) 98.82 ml - LV ESV SP 4CH (MOD) 24.8 ml - EF SP 4CH (MOD) 74.9 % - LV EDV SP 2CH (MOD) 86.1 ml - LV ESV SP 2CH (MOD) 36.93 ml - EF SP 2CH (MOD) 57.11 % - LV EDV BP 94.4 ml - LV ESV BP 32.66 ml - BP EF (MOD) 65.4 % - Diastolic/Systolic Function Name Value Normal Range MV E-wave Vmax 1.04 m/sec - MV deceleration time 160.46 msec - MV A-wave Vmax 0.92 m/sec - MV E:A ratio 1.14 ratio - Aortic Valve Name Value Normal Range AV Vmax 2.12 m/sec - AV VTI 22.37 cm - AV peak gradient 17.95 mmHg - AV mean gradient 7.29 mmHg - LVOT diameter 2.01 cm - LVOT Vmax 1.8 m/sec - LVOT VTI 27.17 cm - LVOT peak gradient 12.91 mmHg - LVOT mean gradient 6.83 mmHg - SV LVOT 86.42 ml - ANITA (continuity Vmax) 2.7 cm2 - ANITA (continuity VTI) 3.86 cm2 - Ascending Ao 3.18 cm - Tricuspid Valve Name Value Normal Range TV E-wave Vmax 0.88 m/sec - TR Vmax 3.01 m/sec - TR peak gradient 36.27 mmHg - RAP 8 mmHg - RVSP 44 mmHg - IVC diameter 2.65 cm (1.2 - 2.3) Pulmonic Valve/Qp:Qs Name Value Normal Range PV Vmax 1.22 m/sec - PV peak gradient 5.91 mmHg - RVOT Vmax 0.87 m/sec - RVOT VTI 13.32 cm - RVOT peak gradient 3 mmHg - PV acceleration time 110.37 msec - [place]/IV: Voiding Method External Female Catheter IV Catheter Type [Right Foot] INT / Saline Lock IV Catheter Type [Left Forearm Peripheral IV ] IV Catheter Type [Left Wrist] INT / Saline Lock IV Catheter Type [Right Hand] INT / Saline Lock IV Catheter Type [Right INT / Saline Lock Antecubital] IV Catheter Type [Right Upper Mid-line arm] IV Catheter Type [Left Triple Lumen Cath Internal Jugular] IV Catheter Type [Left Hand] Peripheral IV IV Catheter Type [Left Peripheral IV Antecubital] Active Medications - Current Medications Current Medications: Generic Name Dose Route Start Last Admin Trade Name Freq PRN Reason Stop Dose Admin Acetaminophen 650 mg 10/05/20 16:34 11/25/20 23:02 Acetaminophen 325 Mg/10.15 Ml Oral Liqd Unit Dose FEEDTUBE 650 mg Q6H PRN Administration Non Cardiac Pain or Temp>100.5 Albuterol 2.5 mg 11/05/20 13:03 11/06/20 13:04 Albuterol 2.5 Mg/3 Ml Nebu IH 2.5 mg Q4HRT PRN Administration Shortness Of Breath Lipase/Protease/Amylase 1 each 10/05/20 11:09 Lipase 10,500/Protease 25,000/Amylase 43,750 (Units) Dr Barakat FEEDTUBE PRN PRN For Clogged Feeding Tube Enoxaparin Sodium 40 mg 10/22/20 10:00 11/27/20 09:17 Enoxaparin 40 Mg/0.4 Ml Inj SUB-Q 40 mg DAILY ERINN Administration Protocol Famotidine 20 mg 10/07/20 10:00 11/27/20 21:05 Famotidine 20 Mg Tab PO 20 mg BID ERINN Administration Furosemide 40 mg 10/17/20 10:00 11/27/20 09:18 Furosemide 40 Mg Tab PO 40 mg QDAY ERINN Administration Hydralazine HCl 20 mg 10/07/20 11:49 10/17/20 07:20 Hydralazine 20 Mg/1 Ml Inj IV 20 mg Q6H PRN Administration SBP >170 Hydralazine HCl 50 mg 10/17/20 09:00 11/28/20 06:02 Hydralazine 25 Mg Tab PO 50 mg Q8HR ERINN Administration Dextrose 1,000 mls @ 75 mls/hr 10/13/20 11:00 11/28/20 06:32 D10w IV 75 mls/hr DIRECT ERINN Administration Labetalol HCl 300 mg 11/16/20 17:00 11/27/20 21:02 Labetalol 200 Mg Tab PO 300 mg TID ERINN Administration Simple Syrup 15 ml 10/05/20 11:09 Simple Syrup 15 Ml FEEDTUBE PRN PRN Hypoglycemia Simple Syrup 30 ml 10/05/20 11:09 Simple Syrup 15 Ml FEEDTUBE PRN PRN Hypoglycemia Sodium Bicarbonate 325 mg 10/05/20 11:09 11/24/20 11:51 Sodium Bicarbonate 325 Mg Tab FEEDTUBE 325 mg PRN PRN Administration For Clogged Feeding Tube Sodium Bicarbonate 1,300 mg 10/13/20 14:00 11/27/20 21:05 Sodium Bicarbonate 650 Mg Tab PO 1,300 mg TID ERINN Administration Topiramate 50 mg 10/05/20 11:00 11/27/20 21:05 Topiramate Tab 25 Mg Tab PO 50 mg Q12HR ERINN Administration Nutrition/Malnutrition Assess - Dietary Evaluation Nutrition/Malnutrition Findings: Nutrition Notes Start: 10/04/20 11:13 Freq: Status: Active Protocol: Document 11/24/20 11:24 CW (Rec: 11/24/20 11:47 CW [id number]) Nutrition Notes Initial or Follow up Reassessment Current Diagnosis Acute Kidney Injury, Respiratory Failure Other Pertinent Diagnosis C-Diff, Cardiac arrest, s/p c- section and supracervical hysterectomy Current Diet Jevity 1.2 at 60 ml/hr Labs/Tests BG 108 Pertinent Medications Lasix D10w at 75ml/hr Height 5 ft 8 in Weight 102.5 kg [place] Body Weight (kg) 63.63 BMI 34.3 Weight change and time frame 2.4% weight loss x 1 week; likely d/t diuertics usage Weight Status Obese Subjective/Other Information F/U for TF tolerance, POC. T- Piece in place. POC. Pt continues to tolerate TF. Pt has vaginal rash that's being treated by wound care. Awaiting SNF placement. Percent of energy/protein needs met: 100%/96% Burn Absent Trauma Absent GI Symptoms None Food Allergy Yes Current % PO Negligible Minimum of two criteria Yes Interpretation of Weight Loss (severe) >2% in 1 week Fluid Accumulation Mild (non-severe) #2 Nutrition Diagnosis Malnutrition Diagnosis Progress(for reassessment Continues documentation) #1 Nutrition Diagnosis Inadequate oral intake Diagnosis Progress(for reassessment Continues documentation) Is patient on ventilator? No Is Patient Ambulatory and/or Out of Bed No REE-([facility]-confined to bed) 2142.048 Kcal/Kg value to use for calculation 16 Approximate Energy Requirements Using 1640 kcal/Kg Calculation Used for Recommendations Kcal/kg Additional Notes Protein needs are 66-83g (0.8- 1g/kg AdjBW 83kg) Fluid needs are 1ml/kcal Nutrition Intervention Change Diet Order: Continue Nutrition Support: Jevity 1.2 at 60ml/hr. Flush 100ml q4h. Kcal 1,728 Protein (gm) 80 Fluid (mL) 1,162 Goal #1 TF tolerance Goal #2 Meet at least 75% of energy and protein needs Anticipated Discharge Needs: Unable to determine at this time Follow-Up By: 12/01/20 Additional Comments F/U for TF tolerance, stable weight, POC
[2020-11-28] MEDS: FUROSEMIDE 40 MG TAB PO SCH (11:05)
[2020-11-28] MEDS: TOPIRAMATE TAB 25 MG TAB PO SCH ×2 (11:05→22:47)
[2020-11-28] MEDS: FAMOTIDINE 20 MG TAB PO SCH ×2 (11:05→22:47)
[2020-11-28] MEDS: ENOXAPARIN 40 MG/0.4 ML INJ SUB-Q SCH (11:06)
[2020-11-28] MEDS: SODIUM BICARBONATE 650 MG TAB PO SCH ×3 (12:23→19:58)
[2020-11-28] MEDS: ACETAMINOPHEN 325 MG/10.15 ML ORAL LIQD UNIT DOSE FEEDTUBE PRN (19:59)
[2020-11-29] MEDS: ACETAMINOPHEN 325 MG/10.15 ML ORAL LIQD UNIT DOSE FEEDTUBE PRN ×2 (06:25→22:17)
[2020-11-29] MEDS: hydrALAZINE 25 MG TAB PO SCH ×3 (06:26→22:17)
[2020-11-29] MEDS: DEXTROSE 10% IN WATER 1,000 ML IV SCH ×2 (06:26→22:19)
--- NOTE | 2020-11-29 09:06 | Progress Note ---
Assessment and Plan Assessment and plan: --Cardiac arrest; 10/07/2020 ,status post CPR --Acute hypoxic brain injury; Supportive care, closely monitor --Acute hypoxic respiratory failure: Tracheostomy on T-piece , today on 4.5 L oxygen, saturating 100% Supportive care, Pulmonary critical following --Persistent hypoglycemia; patient is requiring continuous D10 W infusion CT abdomen done to rule out insulinoma, CT abdomen report negative for pancreatic tumor We will closely monitor COVID-19 negative C. difficile positive; Patient on contact isolation Completed treatment --Sepsis; received antibiotics Continue to monitor off antibiotics ID following --COVID-19 test negative; 10/08/2020 --C. difficile colitis test; positive; 10/16/2020 --Acute metabolic encephalopathy --Acute kidney injury; vasomotor nephropathy Resolved, renal function within normal limits, closely monitor --Shock; monitor off pressors Blood pressures reasonable level --DIC; sepsis, septic shock, resolved --History of preeclampsia; / hemorrhage Status post hysterectomy --History of C. difficile colitis; completed oral vancomycin --DVT/SVT and right upper extremity Very poor prognosis, Consults recommendations noted and appreciated We will closely monitor the patient and adjust management as needed Plan of care reviewed with the patient's nurse. Patient is clinically stable Pending placement,discharge to SNF when placement is processed Plan of care reviewed with the patient's nurse Critical care statement The high probability of a clinically significant, sudden or life threatening deterioration of the [MULTIPLE ORGAN] system(s) required my full and direct attention, intervention and personal management. The aggregate critical care time was [33] minutes. This time is in addition to time spent performing reported procedures but includes the following: [X] Data Review and interpretation [X] Patient assessment and monitoring of vital signs [X] Documentation [X] Medication orders and management 30 y/o female patient with Eclampsia/help syndrome, s/p emergent section with DIC, hemorrhage, supracervical abdominal hysterectomy, acute respiratory failure , tracheostomy on T-piece with morbid obesity, s/p cardiac arrest 12/08/2019 status post CPR per ACLS, acute hypoxic brain injury Acute kidney injury improved, severe shock requiring pressors, DIC septic shock improved, history of C. difficile colitis completed treatment with vancomycin. Tracheostomy on T-piece, continues to require 5 L of oxygen. Herpetic flareup, ID started treatment with antibiotics, patient is waiting for SNF placement DC planning per case management 11/13/2020; patient is receiving herpes flareup treatment per ID 11/14/2020; clinically no change, awaiting SNF placement 11/15/2020; clinically no change, tracheostomy on T-piece on 5 L oxygen, awaiting placement 11/16/2020; patient awaiting placement 11/18/2020; abdominal CT scan negative for insulinoma or pancreatic tumor ,clinically no change Awaiting SNF placement 11/19/2020; remains on 4 L of oxygen tracheostomy via T-piece, awaiting SNF placement 11/27/2020; patient remains hypoglycemic on D10 W IV fluids, CT abdomen negative for insulinoma Remains stable awaiting SNF placement, tracheostomy on 5 L oxygen via T-piece 11/28/2020; awaiting SNF placement 11/29/2020; patient remains unresponsive, tracheostomy on T-piece, on 4 to 5 L of oxygen Wean as tolerated, DC planning per case management possible SNF placement History Interval history: Clinically no change Vital signs reviewed Tracheostomy on T-piece 2 to 4 L of oxygen Remains unresponsive and encephalopathic Hospitalist Physical - Constitutional Vitals: Temp Pulse Resp BP Pulse Ox 99.0 F 109 H 14 135/83 100 11/29/20 03:55 11/29/20 07:00 11/29/20 07:00 11/29/20 07:00 11/29/20 07:36 General appearance: Present: no acute distress, well-nourished, obese, other (Noncommunicative) - EENT Eyes: Present: PERRL, EOM intact - Neck Neck: Present: supple, normal ROM - Respiratory Respiratory effort: normal - Cardiovascular Rhythm: regular Heart Sounds: Present: S1 & S2 - Extremities Extremities: no ischemia, No edema - Abdominal General gastrointestinal: soft, non-tender, non-distended, other (PEG in place) - Integumentary Integumentary: Present: clear, warm - Psychiatric Psychiatric: other (Unresponsive) - Neurologic Neurologic: other (Residual weakness) HEART Score - HEART Score Age: < 45 Risk factors: 1-2 risk factors - Critical Actions Critical Actions: >7 pts:50-65% risk of adverse cardiac event. Early invasive me asures Results - Labs CBC & Chem 7: 11/26/20 04:37 11/26/20 04:37 Labs: Laboratory Last Values WBC 9.6 K/mm3 (4.5-11.0) 11/26/20 04:37 RBC 4.53 M/mm3 (3.65-5.03) 11/26/20 04:37 Hgb 12.5 gm/dl (10.1-14.3) 11/26/20 04:37 Hgb Comment See scanned result 10/04/20 Unknown Hct 37.1 % (30.3-42.9) 11/26/20 04:37 MCV 82 fl (79-97) 11/26/20 04:37 MCH 28 pg (28-32) 11/26/20 04:37 MCHC 34 % (30-34) 11/26/20 04:37 RDW 15.4 % (13.2-15.2) H 11/26/20 04:37 Plt Count 290 K/mm3 (140-440) 11/26/20 04:37 Lymph % (Auto) 18.9 % (13.4-35.0) 11/26/20 04:37 [place] % (Auto) 10.1 % (0.0-7.3) H 11/26/20 04:37 Eos % (Auto) 2.2 % (0.0-4.3) 11/26/20 04:37 Baso % (Auto) 0.4 % (0.0-1.8) 11/26/20 04:37 Lymph # (Auto) 1.8 K/mm3 (1.2-5.4) 11/26/20 04:37 [place] # (Auto) 1.0 K/mm3 (0.0-0.8) H 11/26/20 04:37 Eos # (Auto) 0.2 K/mm3 (0.0-0.4) 11/26/20 04:37 Baso # (Auto) 0.0 K/mm3 (0.0-0.1) 11/26/20 04:37 Add Manual Diff Complete 10/29/20 07:56 Total Counted 100 10/29/20 07:56 Seg Neutrophils % 68.4 % (40.0-70.0) 11/26/20 04:37 Seg Neuts % (Manual) 80.0 % (40.0-70.0) H 10/29/20 07:56 Band Neutrophils % 2.0 % 10/15/20 05:50 Lymphocytes % (Manual) 15.0 % (13.4-35.0) 10/29/20 07:56 Reactive Lymphs % (Man) 1.0 % 10/02/20 12:18 Monocytes % (Manual) 4.0 % (0.0-7.3) 10/29/20 07:56 Eosinophils % (Manual) 1.0 % (0.0-4.3) 10/29/20 07:56 Myelocytes % 2.0 % 10/02/20 13:05 Metamyelocytes % 1.0 % 10/14/20 04:00 Nucleated RBC % Not Reportable 10/29/20 07:56 Seg Neutrophils # 6.6 K/mm3 (1.8-7.7) 11/26/20 04:37 Seg Neutrophils # Man 10.9 K/mm3 (1.8-7.7) H 10/29/20 07:56 Band Neutrophils # 0.0 K/mm3 10/29/20 07:56 Lymphocytes # (Manual) 2.0 K/mm3 (1.2-5.4) 10/29/20 07:56 Abs React Lymphs (Man) 0.0 K/mm3 10/29/20 07:56 Monocytes # (Manual) 0.5 K/mm3 (0.0-0.8) 10/29/20 07:56 Eosinophils # (Manual) 0.1 K/mm3 (0.0-0.4) 10/29/20 07:56 Basophils # (Manual) 0.0 K/mm3 (0.0-0.1) 10/29/20 07:56 Metamyelocytes # 0.0 K/mm3 10/29/20 07:56 Myelocytes # 0.0 K/mm3 10/29/20 07:56 Promyelocytes # 0.0 K/mm3 10/29/20 07:56 Blast Cells # 0.0 K/mm3 10/29/20 07:56 WBC Morphology Not Reportable 10/29/20 07:56 Hypersegmented Neuts Not Reportable 10/29/20 07:56 Hyposegmented Neuts Not Reportable 10/29/20 07:56 Hypogranular Neuts Not Reportable 10/29/20 07:56 Smudge Cells Not Reportable 10/29/20 07:56 Toxic Granulation Not Reportable 10/29/20 07:56 Toxic Vacuolation Not Reportable 10/29/20 07:56 Dohle Bodies Not Reportable 10/29/20 07:56 Pelger-Huet Anomaly Not Reportable 10/29/20 07:56 Ester Rods Not Reportable 10/29/20 07:56 Platelet Estimate Consistent w auto 10/29/20 07:56 Clumped Platelets Not Reportable 10/29/20 07:56 Plt Clumps, EDTA Not Reportable 10/29/20 07:56 Large Platelets Few 10/29/20 07:56 Giant Platelets Not Reportable 10/29/20 07:56 Platelet Satelliting Not Reportable 10/29/20 07:56 Plt Morphology Comment Not Reportable 10/29/20 07:56 RBC Morphology Not Reportable 10/29/20 07:56 Dimorphic RBCs Not Reportable 10/29/20 07:56 Polychromasia Rare 10/29/20 07:56 Hypochromasia Few 10/29/20 07:56 Poikilocytosis Not Reportable 10/29/20 07:56 Anisocytosis Not Reportable 10/29/20 07:56 Microcytosis Not Reportable 10/29/20 07:56 Macrocytosis Not Reportable 10/29/20 07:56 Spherocytes Not Reportable 10/29/20 07:56 Pappenheimer Bodies Not Reportable 10/29/20 07:56 Sickle Cells Not Reportable 10/29/20 07:56 Target Cells Few 10/29/20 07:56 Tear Drop Cells Not Reportable 10/29/20 07:56 Ovalocytes Not Reportable 10/29/20 07:56 Stomatocytes Few 10/14/20 04:00 Helmet Cells Not Reportable 10/29/20 07:56 Burk-[place] Bodies Not Reportable 10/29/20 07:56 Leota Rings Not Reportable 10/29/20 07:56 [place] Cells Not Reportable 10/29/20 07:56 Bite Cells Not Reportable 10/29/20 07:56 Crenated Cell Not Reportable 10/29/20 07:56 Elliptocytes Not Reportable 10/29/20 07:56 Acanthocytes (Spur) Not Reportable 10/29/20 07:56 Rouleaux Not Reportable 10/29/20 07:56 Hemoglobin C Crystals Not Reportable 10/29/20 07:56 Schistocytes Not Reportable 10/29/20 07:56 Malaria parasites Not Reportable 10/29/20 07:56 Sickle Cell Solubility See scanned result 10/04/20 Unknown Hemoglobin A See scanned result 10/04/20 Unknown Hemoglobin A2 See scanned result 10/04/20 Unknown Hemoglobin A2 Prime See scanned result 10/04/20 Unknown Hemoglobin C See scanned result 10/04/20 Unknown Hemoglobin D See scanned result 10/04/20 Unknown Hemoglobin E See scanned result 10/04/20 Unknown Hgb F Diffential Stain See scanned result 10/04/20 Unknown Hemoglobin F Quant See scanned result 10/04/20 Unknown Hemoglobin G See scanned result 10/04/20 Unknown Hemoglobin S See scanned result 10/04/20 Unknown Hemoglobin [place] See scanned result 10/04/20 Unknown Hemoglobin [place] See scanned result 10/04/20 Unknown Hemoglobin [place] See scanned result 10/04/20 Unknown Variant Hemoglobin See scanned result 10/04/20 Unknown Abnorm Hgb IEF Confirm See scanned result 10/04/20 Unknown Hemoglobin Interpret See scanned result 10/04/20 Unknown Hemoglobinopathy Note See scanned result 10/04/20 Unknown Sharad Bodies Not Reportable 10/29/20 07:56 Hem Pathologist Commnt No 10/29/20 07:56 PT 13.6 Sec. (12.2-14.9) 10/21/20 13:54 INR 1.06 (0.87-1.13) 10/21/20 13:54 APTT 31.6 Sec. (24.2-36.6) 10/03/20 00:40 Fibrinogen 336 mg/dl (211-480) 10/04/20 10:00 D-Dimer 1974.47 ng/mlDDU (0-234) H 11/11/20 13:50 ABG pH 7.459 pH Units (7.350-7.450) H 10/26/20 10:30 POC ABG pCO2 20.7 mmHg (32.0-48.0) L 10/13/20 07:18 ABG pCO2 32.4 mm Hg 10/26/20 10:30 POC ABG pO2 137.9 mmHg (83-108) H 10/13/20 07:18 ABG pO2 112.2 mm Hg (80.0-90.0) H 10/26/20 10:30 POC ABG HCO3 14.8 10/13/20 07:18 ABG HCO3 22.5 mmol/L (20.0-26.0) 10/26/20 10:30 ABG O2 Saturation 98.2 % (95.0-99.0) 10/26/20 10:30 ABG O2 Content 18.5 (0.0-44) 10/26/20 10:30 POC ABG Base Excess -6.9 10/13/20 07:18 ABG Base Excess -0.6 mmol/L (-2.0-3.0) 10/26/20 10:30 ABG Hemoglobin 13.5 gm/dl (12.0-16.0) 10/26/20 10:30 ABG Oxyhemoglobin 98.3 (94-98) H 10/13/20 07:18 ABG Carboxyhemoglobin 1.3 % (0.0-5.0) 10/26/20 10:30 ABG Methemoglobin 0.5 % (0.0-1.5) 10/26/20 10:30 ABG Sodium 135.9 mmol/L (136.0-145.0) L 10/13/20 07:18 ABG Potassium 3.7 mmol/L (3.40-4.50) 10/13/20 07:18 ABG Chloride 111.0 mmol/L (98-107) H 10/13/20 07:18 ABG Glucose 109 mg/dL (65-95) H 10/13/20 07:18 VBG pH 6.949 (7.320-7.420) L* 10/02/20 Unknown Oxyhemoglobin 96.5 % (95.0-99.0) 10/26/20 10:30 Carboxyhemoglobin 0.3 (0.5-1.5) L 10/13/20 07:18 FiO2 25 % 10/26/20 10:30 Sodium 139 mmol/L (137-145) 11/26/20 04:37 Potassium 3.6 mmol/L (3.6-5.0) 11/26/20 04:37 Chloride 101.0 mmol/L (98-107) 11/26/20 04:37 Carbon Dioxide 26 mmol/L (22-30) 11/26/20 04:37 Anion Gap 16 mmol/L 11/26/20 04:37 BUN 9 mg/dL (7-17) 11/26/20 04:37 Creatinine 0.6 mg/dL (0.6-1.2) 11/26/20 04:37 Estimated GFR > 60 ml/min 11/26/20 04:37 BUN/Creatinine Ratio 15 % 11/26/20 04:37 Glucose 109 mg/dL (65-100) H 11/26/20 04:37 POC Glucose 98 mg/dL (70-105) 11/29/20 05:21 Random Insulin 43.2 uIU/mL (<=19.6) H 11/02/20 19:19 Proinsulin See scanned result 11/02/20 19:19 C-Peptide 6.23 ng/mL (0.80-3.85) H 11/02/20 19:19 Lactic Acid 1.90 mmol/L (0.7-2.0) 10/04/20 22:00 Uric Acid 7.5 mg/dL (3.5-7.6) 10/02/20 13:05 Calcium 9.5 mg/dL (8.4-10.2) 11/26/20 04:37 Ionized Calcium 4.4 mg/dL (4.8-5.6) L 10/07/20 21:00 Phosphorus 4.60 mg/dL (2.5-4.5) H 11/13/20 10:05 Magnesium 2.10 mg/dL (1.7-2.3) 11/13/20 10:05 Total Bilirubin 0.50 mg/dL (0.1-1.2) 11/26/20 04:37 AST 51 units/L (5-40) H 11/26/20 04:37 ALT 42 units/L (7-56) 11/26/20 04:37 Alkaline Phosphatase 117 units/L (35-129) 11/26/20 04:37 Lactate Dehydrogenase 769 units/L (91-180) H 10/02/20 13:05 C-Reactive Protein 0.70 mg/dL (0.00-1.30) 11/11/20 13:50 NT-Pro-B Natriuret Pep 2788 pg/mL (0-450) H 10/04/20 10:00 Total Protein 7.8 g/dL (6.3-8.2) 11/26/20 04:37 Albumin 3.9 g/dL (3.9-5) 11/26/20 04:37 Albumin/Globulin Ratio 1.0 % 11/26/20 04:37 Procalcitonin < 0.05 ng/mL (<0.15) 11/11/20 13:50 Arterial Blood Glucose 109 mg/dL (65-95) H 10/13/20 07:18 Arterial Blood Ionized Calcium 4.6 mg/dL (4.6-5.3) 10/13/20 07:18 Urine Color Yellow (Yellow) 11/11/20 13:50 Urine Turbidity Cloudy (Clear) 11/11/20 13:50 Urine pH 6.0 (5.0-7.0) 11/11/20 13:50 Ur Specific [place] 1.013 (1.003-1.030) 11/11/20 13:50 Urine Protein 100 mg/dl mg/dL (Negative) 11/11/20 13:50 Urine Glucose (UA) Neg mg/dL (Negative) 11/11/20 13:50 Urine Ketones Neg mg/dL (Negative) 11/11/20 13:50 Urine Blood Mod (Negative) 11/11/20 13:50 Urine Nitrite Pos (Negative) 11/11/20 13:50 Urine Bilirubin Neg (Negative) 11/11/20 13:50 Urine Urobilinogen 2.0 mg/dL (<2.0) 11/11/20 13:50 Ur Leukocyte Esterase Lg (Negative) 11/11/20 13:50 Urine WBC (Auto) > 182.0 /HPF (0.0-6.0) H 11/11/20 13:50 Urine RBC (Auto) > 182.0 /HPF (0.0-6.0) 11/11/20 13:50 U Epithel Cells (Auto) 1.0 /HPF (0-13.0) 11/11/20 13:50 Urine Bacteria (Auto) 4+ /HPF (Negative) 11/11/20 13:50 Urine WBC Clumps 3+ /HPF 11/11/20 13:50 Calcium Oxalate Crystal Few 11/11/20 13:50 Urine Mucus Few /HPF 11/11/20 13:50 Vancomycin Trough 12.6 ug/mL (5.0-20.0) 10/21/20 13:54 Random Vancomycin 10.7 ug/mL (0-40.0) 10/16/20 13:09 Phenytoin 5.7 ug/mL (10.0-20.0) L 10/13/20 07:00 C. difficile Tox (PCR) Positive (Negative) 10/16/20 10:22 Coronavirus (PCR) Negative (Negative) 10/08/20 14:15 Blood Type O POSITIVE 10/02/20 12:50 Antibody Screen Negative 10/02/20 12:50 Crossmatch See Detail 10/02/20 12:50 - Diagnostic Impressions Diagnostic Impressions: Echocardiogram 10/03/20 13:42 Transthoracic Echocardiogram Indication: S/P Cardiac Arrest R/O Cardiomyopathy BP: 133/71 Conclusions *Global left ventricular systolic function is normal. *The estimated ejection fraction is 60-65%. *There is trace of mitral regurgitation. *The right 0heart chambers are both slightly dilated. *There is mild tricuspid regurgitation. *There is mild-moderate pulmonary hypertension. *The right ventricular systolic pressure is calculated at 44 mmHg. *The study quality is technically difficult. Findings Procedure Info: The study quality is technically difficult. The study is technically limited due to patient body habitus. The study was technically limited due to the patient's inability to lay in the left lateral decubitus position. Left Ventricle: The left ventricular chamber size is normal. There is no left ventricular hypertrophy. Global left ventricular systolic function is normal. The estimated ejection fraction is 60-65%. Left Atrium: The left atrial chamber size is normal. Right Ventricle: The right ventricle is slightly dilated. Right Atrium: The right atrium is mildly dilated. Aortic Valve: The aortic valve leaflets are mildly thickened. There is no evidence of aortic regurgitation. There is no evidence of aortic stenosis. Mitral Valve: The mitral valve leaflets are mildly thickened. There is trace of mitral regurgitation. There is no evidence of mitral stenosis. Tricuspid Valve: There is mild tricuspid regurgitation. The right ventricular systolic pressure is calculated at 44 mmHg. There is evidence of mild pulmonary hypertension. Pulmonic Valve: There is trace pulmonic regurgitation. Pericardium: There is no pericardial effusion. Aorta: There is no dilatation of the ascending aorta. There is no dilatation of the aortic root. Venous: The inferior vena cava is dilated. Measurements Chambers 2D Name Value Normal Range IVSd (2D) 1 cm (0.6 - 1.1) LVPWd (2D) 1.01 cm (0.6 - 1.1) LVIDd (2D) 4.58 cm (3.7 - 5.6) LVIDs (2D) 3.17 cm (2 - 3.8) LV FS (2D) 30.93 % - EF Teichholz (2D) 58.66 % - Ao root diameter (2D) 2.94 cm (2 - 3.7) Volumes/Mass Name Value Normal Range LA ESV SP 4CH (A/L) 72.82 ml - LA ESV SP 2CH (A/L) 66.86 ml - LA ESV BP (A/L) 74.49 ml - LA ESV SP 4CH (MOD) 71.03 ml - LA ESV SP 2CH (MOD) 64.3 ml - LV EDV SP 4CH (MOD) 98.82 ml - LV ESV SP 4CH (MOD) 24.8 ml - EF SP 4CH (MOD) 74.9 % - LV EDV SP 2CH (MOD) 86.1 ml - LV ESV SP 2CH (MOD) 36.93 ml - EF SP 2CH (MOD) 57.11 % - LV EDV BP 94.4 ml - LV ESV BP 32.66 ml - BP EF (MOD) 65.4 % - Diastolic/Systolic Function Name Value Normal Range MV E-wave Vmax 1.04 m/sec - MV deceleration time 160.46 msec - MV A-wave Vmax 0.92 m/sec - MV E:A ratio 1.14 ratio - Aortic Valve Name Value Normal Range AV Vmax 2.12 m/sec - AV VTI 22.37 cm - AV peak gradient 17.95 mmHg - AV mean gradient 7.29 mmHg - LVOT diameter 2.01 cm - LVOT Vmax 1.8 m/sec - LVOT VTI 27.17 cm - LVOT peak gradient 12.91 mmHg - LVOT mean gradient 6.83 mmHg - SV LVOT 86.42 ml - ANITA (continuity Vmax) 2.7 cm2 - ANITA (continuity VTI) 3.86 cm2 - Ascending Ao 3.18 cm - Tricuspid Valve Name Value Normal Range TV E-wave Vmax 0.88 m/sec - TR Vmax 3.01 m/sec - TR peak gradient 36.27 mmHg - RAP 8 mmHg - RVSP 44 mmHg - IVC diameter 2.65 cm (1.2 - 2.3) Pulmonic Valve/Qp:Qs Name Value Normal Range PV Vmax 1.22 m/sec - PV peak gradient 5.91 mmHg - RVOT Vmax 0.87 m/sec - RVOT VTI 13.32 cm - RVOT peak gradient 3 mmHg - PV acceleration time 110.37 msec - [place]/IV: Voiding Method Diaper IV Catheter Type [Right Foot] INT / Saline Lock IV Catheter Type [Left Forearm Peripheral IV ] IV Catheter Type [Left Wrist] INT / Saline Lock IV Catheter Type [Right Hand] INT / Saline Lock IV Catheter Type [Right INT / Saline Lock Antecubital] IV Catheter Type [Right Upper Mid-line arm] IV Catheter Type [Left Triple Lumen Cath Internal Jugular] IV Catheter Type [Left Hand] Peripheral IV IV Catheter Type [Left Peripheral IV Antecubital] Active Medications - Current Medications Current Medications: Generic Name Dose Route Start Last Admin Trade Name Freq PRN Reason Stop Dose Admin Acetaminophen 650 mg 10/05/20 16:34 11/29/20 06:25 Acetaminophen 325 Mg/10.15 Ml Oral Liqd Unit Dose FEEDTUBE 650 mg Q6H PRN Administration Non Cardiac Pain or Temp>100.5 Albuterol 2.5 mg 11/05/20 13:03 11/06/20 13:04 Albuterol 2.5 Mg/3 Ml Nebu IH 2.5 mg Q4HRT PRN Administration Shortness Of Breath Lipase/Protease/Amylase 1 each 10/05/20 11:09 Lipase 10,500/Protease 25,000/Amylase 43,750 (Units) Dr Barakat FEEDEVERARDO PRN PRN For Clogged Feeding Tube Enoxaparin Sodium 40 mg 10/22/20 10:00 11/28/20 11:06 Enoxaparin 40 Mg/0.4 Ml Inj SUB-Q 40 mg DAILY ERINN Administration Protocol Famotidine 20 mg 10/07/20 10:00 11/28/20 22:47 Famotidine 20 Mg Tab PO 20 mg BID ERINN Administration Furosemide 40 mg 10/17/20 10:00 11/28/20 11:05 Furosemide 40 Mg Tab PO 40 mg QDAY ERINN Administration Hydralazine HCl 20 mg 10/07/20 11:49 10/17/20 07:20 Hydralazine 20 Mg/1 Ml Inj IV 20 mg Q6H PRN Administration SBP >170 Hydralazine HCl 50 mg 10/17/20 09:00 11/29/20 06:26 Hydralazine 25 Mg Tab PO 50 mg Q8HR ERINN Administration Dextrose 1,000 mls @ 75 mls/hr 10/13/20 11:00 11/29/20 06:26 D10w IV 75 mls/hr DIRECT ERINN Administration Labetalol HCl 300 mg 11/16/20 17:00 11/28/20 19:58 Labetalol 200 Mg Tab PO 300 mg TID ERINN Administration Simple Syrup 15 ml 10/05/20 11:09 Simple Syrup 15 Ml FEEDTUBE PRN PRN Hypoglycemia Simple Syrup 30 ml 10/05/20 11:09 Simple Syrup 15 Ml FEEDTUBE PRN PRN Hypoglycemia Sodium Bicarbonate 325 mg 10/05/20 11:09 11/24/20 11:51 Sodium Bicarbonate 325 Mg Tab FEEDTUBE 325 mg PRN PRN Administration For Clogged Feeding Tube Sodium Bicarbonate 1,300 mg 10/13/20 14:00 11/28/20 19:58 Sodium Bicarbonate 650 Mg Tab PO 1,300 mg TID ERINN Administration Topiramate 50 mg 10/05/20 11:00 11/28/20 22:47 Topiramate Tab 25 Mg Tab PO 50 mg Q12HR ERINN Administration Nutrition/Malnutrition Assess - Dietary Evaluation Nutrition/Malnutrition Findings: Nutrition Notes Start: 10/04/20 11:13 Freq: Status: Active Protocol: Document 11/24/20 11:24 CW (Rec: 11/24/20 11:47 CW [id number]) Nutrition Notes Initial or Follow up Reassessment Current Diagnosis Acute Kidney Injury, Respiratory Failure Other Pertinent Diagnosis C-Diff, Cardiac arrest, s/p c- section and supracervical hysterectomy Current Diet Jevity 1.2 at 60 ml/hr Labs/Tests BG 108 Pertinent Medications Lasix D10w at 75ml/hr Height 5 ft 8 in Weight 102.5 kg [place] Body Weight (kg) 63.63 BMI 34.3 Weight change and time frame 2.4% weight loss x 1 week; likely d/t diuertics usage Weight Status Obese Subjective/Other Information F/U for TF tolerance, POC. T- Piece in place. POC. Pt continues to tolerate TF. Pt has vaginal rash that's being treated by wound care. Awaiting SNF placement. Percent of energy/protein needs met: 100%/96% Burn Absent Trauma Absent GI Symptoms None Food Allergy Yes Current % PO Negligible Minimum of two criteria Yes Interpretation of Weight Loss (severe) >2% in 1 week Fluid Accumulation Mild (non-severe) #2 Nutrition Diagnosis Malnutrition Diagnosis Progress(for reassessment Continues documentation) #1 Nutrition Diagnosis Inadequate oral intake Diagnosis Progress(for reassessment Continues documentation) Is patient on ventilator? No Is Patient Ambulatory and/or Out of Bed No REE-([facility]-confined to bed) 2142.048 Kcal/Kg value to use for calculation 16 Approximate Energy Requirements Using 1640 kcal/Kg Calculation Used for Recommendations Kcal/kg Additional Notes Protein needs are 66-83g (0.8- 1g/kg AdjBW 83kg) Fluid needs are 1ml/kcal Nutrition Intervention Change Diet Order: Continue Nutrition Support: Jevity 1.2 at 60ml/hr. Flush 100ml q4h. Kcal 1,728 Protein (gm) 80 Fluid (mL) 1,162 Goal #1 TF tolerance Goal #2 Meet at least 75% of energy and protein needs Anticipated Discharge Needs: Unable to determine at this time Follow-Up By: 12/01/20 Additional Comments F/U for TF tolerance, stable weight, POC
[2020-11-29] MEDS: SODIUM BICARBONATE 650 MG TAB PO SCH ×3 (09:18→20:13)
[2020-11-29] MEDS: FUROSEMIDE 40 MG TAB PO SCH (09:18)
[2020-11-29] MEDS: FAMOTIDINE 20 MG TAB PO SCH ×2 (09:18→22:17)
[2020-11-29] MEDS: TOPIRAMATE TAB 25 MG TAB PO SCH ×2 (09:19→22:18)
[2020-11-29] MEDS: ENOXAPARIN 40 MG/0.4 ML INJ SUB-Q SCH (09:21)
--- NOTE | 2020-11-29 16:23 | Progress Note ---
Hospitalist Physical - Constitutional Vitals: Temp Pulse Resp BP Pulse Ox 98.6 F 112 H 35 H 122/74 99 11/29/20 08:00 11/29/20 14:00 11/29/20 14:00 11/29/20 16:07 11/29/20 15:52 General appearance: Present: no acute distress, well-nourished, obese, other (Noncommunicative) HEART Score - HEART Score Age: < 45 Risk factors: 1-2 risk factors - Critical Actions Critical Actions: >7 pts:50-65% risk of adverse cardiac event. Early invasive measures Results - Labs CBC & Chem 7: 11/26/20 04:37 11/26/20 04:37 Labs: Laboratory Last Values WBC 9.6 K/mm3 (4.5-11.0) 11/26/20 04:37 RBC 4.53 M/mm3 (3.65-5.03) 11/26/20 04:37 Hgb 12.5 gm/dl (10.1-14.3) 11/26/20 04:37 Hgb Comment See scanned result 10/04/20 Unknown Hct 37.1 % (30.3-42.9) 11/26/20 04:37 MCV 82 fl (79-97) 11/26/20 04:37 MCH 28 pg (28-32) 11/26/20 04:37 MCHC 34 % (30-34) 11/26/20 04:37 RDW 15.4 % (13.2-15.2) H 11/26/20 04:37 Plt Count 290 K/mm3 (140-440) 11/26/20 04:37 Lymph % (Auto) 18.9 % (13.4-35.0) 11/26/20 04:37 [place] % (Auto) 10.1 % (0.0-7.3) H 11/26/20 04:37 Eos % (Auto) 2.2 % (0.0-4.3) 11/26/20 04:37 Baso % (Auto) 0.4 % (0.0-1.8) 11/26/20 04:37 Lymph # (Auto) 1.8 K/mm3 (1.2-5.4) 11/26/20 04:37 [place] # (Auto) 1.0 K/mm3 (0.0-0.8) H 11/26/20 04:37 Eos # (Auto) 0.2 K/mm3 (0.0-0.4) 11/26/20 04:37 Baso # (Auto) 0.0 K/mm3 (0.0-0.1) 11/26/20 04:37 Add Manual Diff Complete 10/29/20 07:56 Total Counted 100 10/29/20 07:56 Seg Neutrophils % 68.4 % (40.0-70.0) 11/26/20 04:37 Seg Neuts % (Manual) 80.0 % (40.0-70.0) H 10/29/20 07:56 Band Neutrophils % 2.0 % 10/15/20 05:50 Lymphocytes % (Manual) 15.0 % (13.4-35.0) 10/29/20 07:56 Reactive Lymphs % (Man) 1.0 % 10/02/20 12:18 Monocytes % (Manual) 4.0 % (0.0-7.3) 10/29/20 07:56 Eosinophils % (Manual) 1.0 % (0.0-4.3) 10/29/20 07:56 Myelocytes % 2.0 % 10/02/20 13:05 Metamyelocytes % 1.0 % 10/14/20 04:00 Nucleated RBC % Not Reportable 10/29/20 07:56 Seg Neutrophils # 6.6 K/mm3 (1.8-7.7) 11/26/20 04:37 Seg Neutrophils # Man 10.9 K/mm3 (1.8-7.7) H 10/29/20 07:56 Band Neutrophils # 0.0 K/mm3 10/29/20 07:56 Lymphocytes # (Manual) 2.0 K/mm3 (1.2-5.4) 10/29/20 07:56 Abs React Lymphs (Man) 0.0 K/mm3 10/29/20 07:56 Monocytes # (Manual) 0.5 K/mm3 (0.0-0.8) 10/29/20 07:56 Eosinophils # (Manual) 0.1 K/mm3 (0.0-0.4) 10/29/20 07:56 Basophils # (Manual) 0.0 K/mm3 (0.0-0.1) 10/29/20 07:56 Metamyelocytes # 0.0 K/mm3 10/29/20 07:56 Myelocytes # 0.0 K/mm3 10/29/20 07:56 Promyelocytes # 0.0 K/mm3 10/29/20 07:56 Blast Cells # 0.0 K/mm3 10/29/20 07:56 WBC Morphology Not Reportable 10/29/20 07:56 Hypersegmented Neuts Not Reportable 10/29/20 07:56 Hyposegmented Neuts Not Reportable 10/29/20 07:56 Hypogranular Neuts Not Reportable 10/29/20 07:56 Smudge Cells Not Reportable 10/29/20 07:56 Toxic Granulation Not Reportable 10/29/20 07:56 Toxic Vacuolation Not Reportable 10/29/20 07:56 Dohle Bodies Not Reportable 10/29/20 07:56 Pelger-Huet Anomaly Not Reportable 10/29/20 07:56 Ester Rods Not Reportable 10/29/20 07:56 Platelet Estimate Consistent w auto 10/29/20 07:56 Clumped Platelets Not Reportable 10/29/20 07:56 Plt Clumps, EDTA Not Reportable 10/29/20 07:56 Large Platelets Few 10/29/20 07:56 Giant Platelets Not Reportable 10/29/20 07:56 Platelet Satelliting Not Reportable 10/29/20 07:56 Plt Morphology Comment Not Reportable 10/29/20 07:56 RBC Morphology Not Reportable 10/29/20 07:56 Dimorphic RBCs Not Reportable 10/29/20 07:56 Polychromasia Rare 10/29/20 07:56 Hypochromasia Few 10/29/20 07:56 Poikilocytosis Not Reportable 10/29/20 07:56 Anisocytosis Not Reportable 10/29/20 07:56 Microcytosis Not Reportable 10/29/20 07:56 Macrocytosis Not Reportable 10/29/20 07:56 Spherocytes Not Reportable 10/29/20 07:56 Pappenheimer Bodies Not Reportable 10/29/20 07:56 Sickle Cells Not Reportable 10/29/20 07:56 Target Cells Few 10/29/20 07:56 Tear Drop Cells Not Reportable 10/29/20 07:56 Ovalocytes Not Reportable 10/29/20 07:56 Stomatocytes Few 10/14/20 04:00 Helmet Cells Not Reportable 10/29/20 07:56 [place] Bodies Not Reportable 10/29/20 07:56 Avery Rings Not Reportable 10/29/20 07:56 Antoine Cells Not Reportable 10/29/20 07:56 Bite Cells Not Reportable 10/29/20 07:56 Crenated Cell Not Reportable 10/29/20 07:56 Elliptocytes Not Reportable 10/29/20 07:56 Acanthocytes (Spur) Not Reportable 10/29/20 07:56 Rouleaux Not Reportable 10/29/20 07:56 Hemoglobin C Crystals Not Reportable 10/29/20 07:56 Schistocytes Not Reportable 10/29/20 07:56 Malaria parasites Not Reportable 10/29/20 07:56 Sickle Cell Solubility See scanned result 10/04/20 Unknown Hemoglobin A See scanned result 10/04/20 Unknown Hemoglobin A2 See scanned result 10/04/20 Unknown Hemoglobin A2 Prime See scanned result 10/04/20 Unknown Hemoglobin C See scanned result 10/04/20 Unknown Hemoglobin D See scanned result 10/04/20 Unknown Hemoglobin E See scanned result 10/04/20 Unknown Hgb F Diffential Stain See scanned result 10/04/20 Unknown Hemoglobin F Quant See scanned result 10/04/20 Unknown Hemoglobin G See scanned result 10/04/20 Unknown Hemoglobin S See scanned result 10/04/20 Unknown Hemoglobin O-[place] See scanned result 10/04/20 Unknown Hemoglobin [place] See scanned result 10/04/20 Unknown Hemoglobin Analilia See scanned result 10/04/20 Unknown Variant Hemoglobin See scanned result 10/04/20 Unknown Abnorm Hgb IEF Confirm See scanned result 10/04/20 Unknown Hemoglobin Interpret See scanned result 10/04/20 Unknown Hemoglobinopathy Note See scanned result 10/04/20 Unknown Sharad Bodies Not Reportable 10/29/20 07:56 Hem Pathologist Commnt No 10/29/20 07:56 PT 13.6 Sec. (12.2-14.9) 10/21/20 13:54 INR 1.06 (0.87-1.13) 10/21/20 13:54 APTT 31.6 Sec. (24.2-36.6) 10/03/20 00:40 Fibrinogen 336 mg/dl (211-480) 10/04/20 10:00 D-Dimer 1974.47 ng/mlDDU (0-234) H 11/11/20 13:50 ABG pH 7.459 pH Units (7.350-7.450) H 10/26/20 10:30 POC ABG pCO2 20.7 mmHg (32.0-48.0) L 10/13/20 07:18 ABG pCO2 32.4 mm Hg 10/26/20 10:30 POC ABG pO2 137.9 mmHg (83-108) H 10/13/20 07:18 ABG pO2 112.2 mm Hg (80.0-90.0) H 10/26/20 10:30 POC ABG HCO3 14.8 10/13/20 07:18 ABG HCO3 22.5 mmol/L (20.0-26.0) 10/26/20 10:30 ABG O2 Saturation 98.2 % (95.0-99.0) 10/26/20 10:30 ABG O2 Content 18.5 (0.0-44) 10/26/20 10:30 POC ABG Base Excess -6.9 10/13/20 07:18 ABG Base Excess -0.6 mmol/L (-2.0-3.0) 10/26/20 10:30 ABG Hemoglobin 13.5 gm/dl (12.0-16.0) 10/26/20 10:30 ABG Oxyhemoglobin 98.3 (94-98) H 10/13/20 07:18 ABG Carboxyhemoglobin 1.3 % (0.0-5.0) 10/26/20 10:30 ABG Methemoglobin 0.5 % (0.0-1.5) 10/26/20 10:30 ABG Sodium 135.9 mmol/L (136.0-145.0) L 10/13/20 07:18 ABG Potassium 3.7 mmol/L (3.40-4.50) 10/13/20 07:18 ABG Chloride 111.0 mmol/L (98-107) H 10/13/20 07:18 ABG Glucose 109 mg/dL (65-95) H 10/13/20 07:18 VBG pH 6.949 (7.320-7.420) L* 10/02/20 Unknown Oxyhemoglobin 96.5 % (95.0-99.0) 10/26/20 10:30 Carboxyhemoglobin 0.3 (0.5-1.5) L 10/13/20 07:18 FiO2 25 % 10/26/20 10:30 Sodium 139 mmol/L (137-145) 11/26/20 04:37 Potassium 3.6 mmol/L (3.6-5.0) 11/26/20 04:37 Chloride 101.0 mmol/L (98-107) 11/26/20 04:37 Carbon Dioxide 26 mmol/L (22-30) 11/26/20 04:37 Anion Gap 16 mmol/L 11/26/20 04:37 BUN 9 mg/dL (7-17) 11/26/20 04:37 Creatinine 0.6 mg/dL (0.6-1.2) 11/26/20 04:37 Estimated GFR > 60 ml/min 11/26/20 04:37 BUN/Creatinine Ratio 15 % 11/26/20 04:37 Glucose 109 mg/dL (65-100) H 11/26/20 04:37 POC Glucose 90 mg/dL (70-105) 11/29/20 11:21 Random Insulin 43.2 uIU/mL (<=19.6) H 11/02/20 19:19 Proinsulin See scanned result 11/02/20 19:19 C-Peptide 6.23 ng/mL (0.80-3.85) H 11/02/20 19:19 Lactic Acid 1.90 mmol/L (0.7-2.0) 10/04/20 22:00 Uric Acid 7.5 mg/dL (3.5-7.6) 10/02/20 13:05 Calcium 9.5 mg/dL (8.4-10.2) 11/26/20 04:37 Ionized Calcium 4.4 mg/dL (4.8-5.6) L 10/07/20 21:00 Phosphorus 4.60 mg/dL (2.5-4.5) H 11/13/20 10:05 Magnesium 2.10 mg/dL (1.7-2.3) 11/13/20 10:05 Total Bilirubin 0.50 mg/dL (0.1-1.2) 11/26/20 04:37 AST 51 units/L (5-40) H 11/26/20 04:37 ALT 42 units/L (7-56) 11/26/20 04:37 Alkaline Phosphatase 117 units/L (35-129) 11/26/20 04:37 Lactate Dehydrogenase 769 units/L (91-180) H 10/02/20 13:05 C-Reactive Protein 0.70 mg/dL (0.00-1.30) 11/11/20 13:50 NT-Pro-B Natriuret Pep 2788 pg/mL (0-450) H 10/04/20 10:00 Total Protein 7.8 g/dL (6.3-8.2) 11/26/20 04:37 Albumin 3.9 g/dL (3.9-5) 11/26/20 04:37 Albumin/Globulin Ratio 1.0 % 11/26/20 04:37 Procalcitonin < 0.05 ng/mL (<0.15) 11/11/20 13:50 Arterial Blood Glucose 109 mg/dL (65-95) H 10/13/20 07:18 Arterial Blood Ionized Calcium 4.6 mg/dL (4.6-5.3) 10/13/20 07:18 Urine Color Yellow (Yellow) 11/11/20 13:50 Urine Turbidity Cloudy (Clear) 11/11/20 13:50 Urine pH 6.0 (5.0-7.0) 11/11/20 13:50 Ur Specific [place] 1.013 (1.003-1.030) 11/11/20 13:50 Urine Protein 100 mg/dl mg/dL (Negative) 11/11/20 13:50 Urine Glucose (UA) Neg mg/dL (Negative) 11/11/20 13:50 Urine Ketones Neg mg/dL (Negative) 11/11/20 13:50 Urine Blood Mod (Negative) 11/11/20 13:50 Urine Nitrite Pos (Negative) 11/11/20 13:50 Urine Bilirubin Neg (Negative) 11/11/20 13:50 Urine Urobilinogen 2.0 mg/dL (<2.0) 11/11/20 13:50 Ur Leukocyte Esterase Lg (Negative) 11/11/20 13:50 Urine WBC (Auto) > 182.0 /HPF (0.0-6.0) H 11/11/20 13:50 Urine RBC (Auto) > 182.0 /HPF (0.0-6.0) 11/11/20 13:50 U Epithel Cells (Auto) 1.0 /HPF (0-13.0) 11/11/20 13:50 Urine Bacteria (Auto) 4+ /HPF (Negative) 11/11/20 13:50 Urine WBC Clumps 3+ /HPF 11/11/20 13:50 Calcium Oxalate Crystal Few 11/11/20 13:50 Urine Mucus Few /HPF 11/11/20 13:50 Vancomycin Trough 12.6 ug/mL (5.0-20.0) 10/21/20 13:54 Random Vancomycin 10.7 ug/mL (0-40.0) 10/16/20 13:09 Phenytoin 5.7 ug/mL (10.0-20.0) L 10/13/20 07:00 C. difficile Tox (PCR) Positive (Negative) 10/16/20 10:22 Coronavirus (PCR) Negative (Negative) 10/08/20 14:15 Blood Type O POSITIVE 10/02/20 12:50 Antibody Screen Negative 10/02/20 12:50 Crossmatch See Detail 10/02/20 12:50 - Diagnostic Impressions Diagnostic Impressions: Echocardiogram 10/03/20 13:42 Transthoracic Echocardiogram Indication: S/P Cardiac Arrest R/O Cardiomyopathy BP: 133/71 Conclusions *Global left ventricular systolic function is normal. *The estimated ejection fraction is 60-65%. *There is trace of mitral regurgitation. *The right 0heart chambers are both slightly dilated. *There is mild tricuspid regurgitation. *There is mild-moderate pulmonary hypertension. *The right ventricular systolic pressure is calculated at 44 mmHg. *The study quality is technically difficult. Findings Procedure Info: The study quality is technically difficult. The study is technically limited due to patient body habitus. The study was technically limited due to the patient's inability to lay in the left lateral decubitus position. Left Ventricle: The left ventricular chamber size is normal. There is no left ventricular hypertrophy. Global left ventricular systolic function is normal. The estimated ejection fraction is 60-65%. Left Atrium: The left atrial chamber size is normal. Right Ventricle: The right ventricle is slightly dilated. Right Atrium: The right atrium is mildly dilated. Aortic Valve: The aortic valve leaflets are mildly thickened. There is no evidence of aortic regurgitation. There is no evidence of aortic stenosis. Mitral Valve: The mitral valve leaflets are mildly thickened. There is trace of mitral regurgitation. There is no evidence of mitral stenosis. Tricuspid Valve: There is mild tricuspid regurgitation. The right ventricular systolic pressure is calculated at 44 mmHg. There is evidence of mild pulmonary hypertension. Pulmonic Valve: There is trace pulmonic regurgitation. Pericardium: There is no pericardial effusion. Aorta: There is no dilatation of the ascending aorta. There is no dilatation of the aortic root. Venous: The inferior vena cava is dilated. Measurements Chambers 2D Name Value Normal Range IVSd (2D) 1 cm (0.6 - 1.1) LVPWd (2D) 1.01 cm (0.6 - 1.1) LVIDd (2D) 4.58 cm (3.7 - 5.6) LVIDs (2D) 3.17 cm (2 - 3.8) LV FS (2D) 30.93 % - EF Teichholz (2D) 58.66 % - Ao root diameter (2D) 2.94 cm (2 - 3.7) Volumes/Mass Name Value Normal Range LA ESV SP 4CH (A/L) 72.82 ml - LA ESV SP 2CH (A/L) 66.86 ml - LA ESV BP (A/L) 74.49 ml - LA ESV SP 4CH (MOD) 71.03 ml - LA ESV SP 2CH (MOD) 64.3 ml - LV EDV SP 4CH (MOD) 98.82 ml - LV ESV SP 4CH (MOD) 24.8 ml - EF SP 4CH (MOD) 74.9 % - LV EDV SP 2CH (MOD) 86.1 ml - LV ESV SP 2CH (MOD) 36.93 ml - EF SP 2CH (MOD) 57.11 % - LV EDV BP 94.4 ml - LV ESV BP 32.66 ml - BP EF (MOD) 65.4 % - Diastolic/Systolic Function Name Value Normal Range MV E-wave Vmax 1.04 m/sec - MV deceleration time 160.46 msec - MV A-wave Vmax 0.92 m/sec - MV E:A ratio 1.14 ratio - Aortic Valve Name Value Normal Range AV Vmax 2.12 m/sec - AV VTI 22.37 cm - AV peak gradient 17.95 mmHg - AV mean gradient 7.29 mmHg - LVOT diameter 2.01 cm - LVOT Vmax 1.8 m/sec - LVOT VTI 27.17 cm - LVOT peak gradient 12.91 mmHg - LVOT mean gradient 6.83 mmHg - SV LVOT 86.42 ml - ANITA (continuity Vmax) 2.7 cm2 - ANITA (continuity VTI) 3.86 cm2 - Ascending Ao 3.18 cm - Tricuspid Valve Name Value Normal Range TV E-wave Vmax 0.88 m/sec - TR Vmax 3.01 m/sec - TR peak gradient 36.27 mmHg - RAP 8 mmHg - RVSP 44 mmHg - IVC diameter 2.65 cm (1.2 - 2.3) Pulmonic Valve/Qp:Qs Name Value Normal Range PV Vmax 1.22 m/sec - PV peak gradient 5.91 mmHg - RVOT Vmax 0.87 m/sec - RVOT VTI 13.32 cm - RVOT peak gradient 3 mmHg - PV acceleration time 110.37 msec - [place]/IV: Voiding Method Incontinent IV Catheter Type [Right Foot] INT / Saline Lock IV Catheter Type [Left Forearm Peripheral IV ] IV Catheter Type [Left Wrist] INT / Saline Lock IV Catheter Type [Right Hand] INT / Saline Lock IV Catheter Type [Right INT / Saline Lock Antecubital] IV Catheter Type [Right Upper Mid-line arm] IV Catheter Type [Left Triple Lumen Cath Internal Jugular] IV Catheter Type [Left Hand] Peripheral IV IV Catheter Type [Left Peripheral IV Antecubital] Active Medications - Current Medications Current Medications: Generic Name Dose Route Start Last Admin Trade Name Freq PRN Reason Stop Dose Admin Acetaminophen 650 mg 10/05/20 16:34 11/29/20 06:25 Acetaminophen 325 Mg/10.15 Ml Oral Liqd Unit Dose FEEDTUBE 650 mg Q6H PRN Administration Non Cardiac Pain or Temp>100.5 Albuterol 2.5 mg 11/05/20 13:03 11/06/20 13:04 Albuterol 2.5 Mg/3 Ml Nebu IH 2.5 mg Q4HRT PRN Administration Shortness Of Breath Lipase/Protease/Amylase 1 each 10/05/20 11:09 Lipase 10,500/Protease 25,000/Amylase 43,750 (Units) Dr Barakat FEEDTUBE PRN PRN For Clogged Feeding Tube Enoxaparin Sodium 40 mg 10/22/20 10:00 11/29/20 09:21 Enoxaparin 40 Mg/0.4 Ml Inj SUB-Q 40 mg DAILY ERINN Administration Protocol Famotidine 20 mg 10/07/20 10:00 11/29/20 09:18 Famotidine 20 Mg Tab PO 20 mg BID ERINN Administration Furosemide 40 mg 10/17/20 10:00 11/29/20 09:18 Furosemide 40 Mg Tab PO 40 mg QDAY ERINN Administration Hydralazine HCl 20 mg 10/07/20 11:49 10/17/20 07:20 Hydralazine 20 Mg/1 Ml Inj IV 20 mg Q6H PRN Administration SBP >170 Hydralazine HCl 50 mg 10/17/20 09:00 11/29/20 14:30 Hydralazine 25 Mg Tab PO Not Given Q8HR ERINN Dextrose 1,000 mls @ 75 mls/hr 10/13/20 11:00 11/29/20 06:26 D10w IV 75 mls/hr DIRECT ERINN Administration Labetalol HCl 300 mg 11/16/20 17:00 11/29/20 16:07 Labetalol 200 Mg Tab PO Not Given TID ERINN Simple Syrup 15 ml 10/05/20 11:09 Simple Syrup 15 Ml FEEDTUBE PRN PRN Hypoglycemia Simple Syrup 30 ml 10/05/20 11:09 Simple Syrup 15 Ml FEEDTUBE PRN PRN Hypoglycemia Sodium Bicarbonate 325 mg 10/05/20 11:09 11/24/20 11:51 Sodium Bicarbonate 325 Mg Tab FEEDTUBE 325 mg PRN PRN Administration For Clogged Feeding Tube Sodium Bicarbonate 1,300 mg 10/13/20 14:00 11/29/20 16:08 Sodium Bicarbonate 650 Mg Tab PO 1,300 mg TID ERINN Administration Topiramate 50 mg 10/05/20 11:00 11/29/20 09:19 Topiramate Tab 25 Mg Tab PO 50 mg Q12HR ERINN Administration Nutrition/Malnutrition Assess - Dietary Evaluation Nutrition/Malnutrition Findings: Nutrition Notes Start: 10/04/20 11:13 Freq: Status: Active Protocol: Document 11/24/20 11:24 CW (Rec: 11/24/20 11:47 CW [id number]) Nutrition Notes Initial or Follow up Reassessment Current Diagnosis Acute Kidney Injury, Respiratory Failure Other Pertinent Diagnosis C-Diff, Cardiac arrest, s/p c- section and supracervical hysterectomy Current Diet Jevity 1.2 at 60 ml/hr Labs/Tests BG 108 Pertinent Medications Lasix D10w at 75ml/hr Height 5 ft 8 in Weight 102.5 kg [place] Body Weight (kg) 63.63 BMI 34.3 Weight change and time frame 2.4% weight loss x 1 week; likely d/t diuertics usage Weight Status Obese Subjective/Other Information F/U for TF tolerance, POC. T- Piece in place. POC. Pt continues to tolerate TF. Pt has vaginal rash that's being treated by wound care. Awaiting SNF placement. Percent of energy/protein needs met: 100%/96% Burn Absent Trauma Absent GI Symptoms None Food Allergy Yes Current % PO Negligible Minimum of two criteria Yes Interpretation of Weight Loss (severe) >2% in 1 week Fluid Accumulation Mild (non-severe) #2 Nutrition Diagnosis Malnutrition Diagnosis Progress(for reassessment Continues documentation) #1 Nutrition Diagnosis Inadequate oral intake Diagnosis Progress(for reassessment Continues documentation) Is patient on ventilator? No Is Patient Ambulatory and/or Out of Bed No REE-([place] [facility]-confined to bed) 2142.048 Kcal/Kg value to use for calculation 16 Approximate Energy Requirements Using 1640 kcal/Kg Calculation Used for Recommendations Kcal/kg Additional Notes Protein needs are 66-83g (0.8- 1g/kg AdjBW 83kg) Fluid needs are 1ml/kcal Nutrition Intervention Change Diet Order: Continue Nutrition Support: Jevity 1.2 at 60ml/hr. Flush 100ml q4h. Kcal 1,728 Protein (gm) 80 Fluid (mL) 1,162 Goal #1 TF tolerance Goal #2 Meet at least 75% of energy and protein needs Anticipated Discharge Needs: Unable to determine at this time Follow-Up By: 12/01/20 Additional Comments F/U for TF tolerance, stable weight, POC
[2020-11-30] MEDS: ACETAMINOPHEN 325 MG/10.15 ML ORAL LIQD UNIT DOSE FEEDTUBE PRN ×2 (06:30→21:29)
[2020-11-30] MEDS: hydrALAZINE 25 MG TAB PO SCH ×3 (06:31→21:31)
[2020-11-30] MEDS: DEXTROSE 10% IN WATER 1,000 ML IV SCH ×2 (06:32→19:44)
[2020-11-30] MEDS: SODIUM BICARBONATE 650 MG TAB PO SCH ×3 (08:22→19:44)
[2020-11-30] MEDS: FAMOTIDINE 20 MG TAB PO SCH ×2 (09:51→21:30)
[2020-11-30] MEDS: FUROSEMIDE 40 MG TAB PO SCH (09:51)
[2020-11-30] MEDS: TOPIRAMATE TAB 25 MG TAB PO SCH ×2 (09:52→21:31)
[2020-11-30] MEDS: ENOXAPARIN 40 MG/0.4 ML INJ SUB-Q SCH (09:52)
--- NOTE | 2020-11-30 09:54 | Progress Note ---
Assessment and Plan Assessment and plan: --Cardiac arrest; 10/07/2020 ,status post CPR --Acute hypoxic brain injury; Supportive care, closely monitor --Acute hypoxic respiratory failure: Tracheostomy on T-piece , today on 4.5 L oxygen, saturating 100% Supportive care, Pulmonary critical following --Persistent hypoglycemia; patient is requiring continuous D10 W infusion CT abdomen done to rule out insulinoma, CT abdomen report negative for pancreatic tumor We will closely monitor COVID-19 negative C. difficile positive; Patient on contact isolation Completed treatment --Sepsis; received antibiotics Continue to monitor off antibiotics ID following --COVID-19 test negative; 10/08/2020 --C. difficile colitis test; positive; 10/16/2020 --Acute metabolic encephalopathy --Acute kidney injury; vasomotor nephropathy Resolved, renal function within normal limits, closely monitor --Shock; monitor off pressors Blood pressures reasonable level --DIC; sepsis, septic shock, resolved --History of preeclampsia; / hemorrhage Status post hysterectomy --History of C. difficile colitis; completed oral vancomycin --DVT/SVT and right upper extremity Very poor prognosis, Consults recommendations noted and appreciated We will closely monitor the patient and adjust management as needed Plan of care reviewed with the patient's nurse. Patient is clinically stable Pending placement,discharge to SNF when placement is processed Plan of care reviewed with the patient's nurse Critical care statement The high probability of a clinically significant, sudden or life threatening deterioration of the [MULTIPLE ORGAN] system(s) required my full and direct attention, intervention and personal management. The aggregate critical care time was [33] minutes. This time is in addition to time spent performing reported procedures but includes the following: [X] Data Review and interpretation [X] Patient assessment and monitoring of vital signs [X] Documentation [X] Medication orders and management 30 y/o female patient with Eclampsia/help syndrome, s/p emergent section with DIC, hemorrhage, supracervical abdominal hysterectomy, acute respiratory failure , tracheostomy on T-piece with morbid obesity, s/p cardiac arrest 12/08/2019 status post CPR per ACLS, acute hypoxic brain injury Acute kidney injury improved, severe shock requiring pressors, DIC septic shock improved, history of C. difficile colitis completed treatment with vancomycin. Tracheostomy on T-piece, continues to require 5 L of oxygen. Herpetic flareup, ID started treatment with antibiotics, patient is waiting for SNF placement DC planning per case management 11/13/2020; patient is receiving herpes flareup treatment per ID 11/14/2020; clinically no change, awaiting SNF placement 11/15/2020; clinically no change, tracheostomy on T-piece on 5 L oxygen, awaiting placement 11/16/2020; patient awaiting placement 11/18/2020; abdominal CT scan negative for insulinoma or pancreatic tumor ,clinically no change Awaiting SNF placement 11/19/2020; remains on 4 L of oxygen tracheostomy via T-piece, awaiting SNF teressa [facility] 11/27/2020; patient remains hypoglycemic on D10 W IV fluids, CT abdomen negative for insulinoma Remains stable awaiting SNF placement, tracheostomy on 5 L oxygen via T-piece 11/28/2020; awaiting SNF placement 11/29/2020; patient remains unresponsive, tracheostomy on T-piece, on 4 to 5 L of oxygen Wean as tolerated, DC planning per case management possible SNF placement 11/30/2020; awaiting SNF placement History Interval history: I seen and examined the patient at the bedside in ICU Clinically no change, patient noncommunicative/anoxic brain injury Tracheostomy on T-piece 4 to 5 L oxygen Vital signs noted Hospitalist Physical - Constitutional Vitals: Temp Pulse Resp BP Pulse Ox 99.0 F 92 H 26 H 124/80 100 11/30/20 08:00 11/30/20 08:25 11/30/20 07:00 11/30/20 08:25 11/30/20 07:27 General appearance: Present: no acute distress, well-nourished, obese, other (Noncommunicative) - EENT Eyes: Present: PERRL, EOM intact, irregular pupil ENT: other - Neck Neck: Present: supple, other (Tracheostomy) - Respiratory Respiratory effort: normal Respiratory: bilateral: diminished, rhonchi, negative: rales, wheezing - Cardiovascular Rhythm: regular Heart Sounds: Present: S1 & S2 - Extremities Extremities: no ischemia, No edema - Integumentary Integumentary: Present: clear, warm - Psychiatric Psychiatric: other (Noncommunicative) - Neurologic Neurologic: other (Noncommunicative) HEART Score - HEART Score Age: < 45 Risk factors: 1-2 risk factors - Critical Actions Critical Actions: >7 pts:50-65% risk of adverse cardiac event. Early invasive measures Results - Labs CBC & Chem 7: 11/26/20 04:37 11/26/20 04:37 Labs: Laboratory Last Values WBC 9.6 K/mm3 (4.5-11.0) 11/26/20 04:37 RBC 4.53 M/mm3 (3.65-5.03) 11/26/20 04:37 Hgb 12.5 gm/dl (10.1-14.3) 11/26/20 04:37 Hgb Comment See scanned result 10/04/20 Unknown Hct 37.1 % (30.3-42.9) 11/26/20 04:37 MCV 82 fl (79-97) 11/26/20 04:37 MCH 28 pg (28-32) 11/26/20 04:37 MCHC 34 % (30-34) 11/26/20 04:37 RDW 15.4 % (13.2-15.2) H 11/26/20 04:37 Plt Count 290 K/mm3 (140-440) 11/26/20 04:37 Lymph % (Auto) 18.9 % (13.4-35.0) 11/26/20 04:37 Isabella % (Auto) 10.1 % (0.0-7.3) H 11/26/20 04:37 Eos % (Auto) 2.2 % (0.0-4.3) 11/26/20 04:37 Baso % (Auto) 0.4 % (0.0-1.8) 11/26/20 04:37 Lymph # (Auto) 1.8 K/mm3 (1.2-5.4) 11/26/20 04:37 Isabella # (Auto) 1.0 K/mm3 (0.0-0.8) H 11/26/20 04:37 Eos # (Auto) 0.2 K/mm3 (0.0-0.4) 11/26/20 04:37 Baso # (Auto) 0.0 K/mm3 (0.0-0.1) 11/26/20 04:37 Add Manual Diff Complete 10/29/20 07:56 Total Counted 100 10/29/20 07:56 Seg Neutrophils % 68.4 % (40.0-70.0) 11/26/20 04:37 Seg Neuts % (Manual) 80.0 % (40.0-70.0) H 10/29/20 07:56 Band Neutrophils % 2.0 % 10/15/20 05:50 Lymphocytes % (Manual) 15.0 % (13.4-35.0) 10/29/20 07:56 Reactive Lymphs % (Man) 1.0 % 10/02/20 12:18 Monocytes % (Manual) 4.0 % (0.0-7.3) 10/29/20 07:56 Eosinophils % (Manual) 1.0 % (0.0-4.3) 10/29/20 07:56 Myelocytes % 2.0 % 10/02/20 13:05 Metamyelocytes % 1.0 % 10/14/20 04:00 Nucleated RBC % Not Reportable 10/29/20 07:56 Seg Neutrophils # 6.6 K/mm3 (1.8-7.7) 11/26/20 04:37 Seg Neutrophils # Man 10.9 K/mm3 (1.8-7.7) H 10/29/20 07:56 Band Neutrophils # 0.0 K/mm3 10/29/20 07:56 Lymphocytes # (Manual) 2.0 K/mm3 (1.2-5.4) 10/29/20 07:56 Abs React Lymphs (Man) 0.0 K/mm3 10/29/20 07:56 Monocytes # (Manual) 0.5 K/mm3 (0.0-0.8) 10/29/20 07:56 Eosinophils # (Manual) 0.1 K/mm3 (0.0-0.4) 10/29/20 07:56 Basophils # (Manual) 0.0 K/mm3 (0.0-0.1) 10/29/20 07:56 Metamyelocytes # 0.0 K/mm3 10/29/20 07:56 Myelocytes # 0.0 K/mm3 10/29/20 07:56 Promyelocytes # 0.0 K/mm3 10/29/20 07:56 Blast Cells # 0.0 K/mm3 10/29/20 07:56 WBC Morphology Not Reportable 10/29/20 07:56 Hypersegmented Neuts Not Reportable 10/29/20 07:56 Hyposegmented Neuts Not Reportable 10/29/20 07:56 Hypogranular Neuts Not Reportable 10/29/20 07:56 Smudge Cells Not Reportable 10/29/20 07:56 Toxic Granulation Not Reportable 10/29/20 07:56 Toxic Vacuolation Not Reportable 10/29/20 07:56 Dohle Bodies Not Reportable 10/29/20 07:56 Pelger-Huet Anomaly Not Reportable 10/29/20 07:56 Ester Rods Not Reportable 10/29/20 07:56 Platelet Estimate Consistent w auto 10/29/20 07:56 Clumped Platelets Not Reportable 10/29/20 07:56 Plt Clumps, EDTA Not Reportable 10/29/20 07:56 Large Platelets Few 10/29/20 07:56 Giant Platelets Not Reportable 10/29/20 07:56 Platelet Satelliting Not Reportable 10/29/20 07:56 Plt Morphology Comment Not Reportable 10/29/20 07:56 RBC Morphology Not Reportable 10/29/20 07:56 Dimorphic RBCs Not Reportable 10/29/20 07:56 Polychromasia Rare 10/29/20 07:56 Hypochromasia Few 10/29/20 07:56 Poikilocytosis Not Reportable 10/29/20 07:56 Anisocytosis Not Reportable 10/29/20 07:56 Microcytosis Not Reportable 10/29/20 07:56 Macrocytosis Not Reportable 10/29/20 07:56 Spherocytes Not Reportable 10/29/20 07:56 Pappenheimer Bodies Not Reportable 10/29/20 07:56 Sickle Cells Not Reportable 10/29/20 07:56 Target Cells Few 10/29/20 07:56 Tear Drop Cells Not Reportable 10/29/20 07:56 Ovalocytes Not Reportable 10/29/20 07:56 Stomatocytes Few 10/14/20 04:00 Helmet Cells Not Reportable 10/29/20 07:56 Burk-[place] Bodies Not Reportable 10/29/20 07:56 [place] Rings Not Reportable 10/29/20 07:56 [place] Cells Not Reportable 10/29/20 07:56 Bite Cells Not Reportable 10/29/20 07:56 Crenated Cell Not Reportable 10/29/20 07:56 Elliptocytes Not Reportable 10/29/20 07:56 Acanthocytes (Spur) Not Reportable 10/29/20 07:56 Rouleaux Not Reportable 10/29/20 07:56 Hemoglobin C Crystals Not Reportable 10/29/20 07:56 Schistocytes Not Reportable 10/29/20 07:56 Malaria parasites Not Reportable 10/29/20 07:56 Sickle Cell Solubility See scanned result 10/04/20 Unknown Hemoglobin A See scanned result 10/04/20 Unknown Hemoglobin A2 See scanned result 10/04/20 Unknown Hemoglobin A2 Prime See scanned result 10/04/20 Unknown Hemoglobin C See scanned result 10/04/20 Unknown Hemoglobin D See scanned result 10/04/20 Unknown Hemoglobin E See scanned result 10/04/20 Unknown Hgb F Diffential Stain See scanned result 10/04/20 Unknown Hemoglobin F Quant See scanned result 10/04/20 Unknown Hemoglobin G See scanned result 10/04/20 Unknown Hemoglobin S See scanned result 10/04/20 Unknown Hemoglobin O-[place] See scanned result 10/04/20 Unknown Hemoglobin [place] See scanned result 10/04/20 Unknown Hemoglobin Analilia See scanned result 10/04/20 Unknown Variant Hemoglobin See scanned result 10/04/20 Unknown Abnorm Hgb IEF Confirm See scanned result 10/04/20 Unknown Hemoglobin Interpret See scanned result 10/04/20 Unknown Hemoglobinopathy Note See scanned result 10/04/20 Unknown Sharad Bodies Not Reportable 10/29/20 07:56 Hem Pathologist Commnt No 10/29/20 07:56 PT 13.6 Sec. (12.2-14.9) 10/21/20 13:54 INR 1.06 (0.87-1.13) 10/21/20 13:54 APTT 31.6 Sec. (24.2-36.6) 10/03/20 00:40 Fibrinogen 336 mg/dl (211-480) 10/04/20 10:00 D-Dimer 1974.47 ng/mlDDU (0-234) H 11/11/20 13:50 ABG pH 7.459 pH Units (7.350-7.450) H 10/26/20 10:30 POC ABG pCO2 20.7 mmHg (32.0-48.0) L 10/13/20 07:18 ABG pCO2 32.4 mm Hg 10/26/20 10:30 POC ABG pO2 137.9 mmHg (83-108) H 10/13/20 07:18 ABG pO2 112.2 mm Hg (80.0-90.0) H 10/26/20 10:30 POC ABG HCO3 14.8 10/13/20 07:18 ABG HCO3 22.5 mmol/L (20.0-26.0) 10/26/20 10:30 ABG O2 Saturation 98.2 % (95.0-99.0) 10/26/20 10:30 ABG O2 Content 18.5 (0.0-44) 10/26/20 10:30 POC ABG Base Excess -6.9 10/13/20 07:18 ABG Base Excess -0.6 mmol/L (-2.0-3.0) 10/26/20 10:30 ABG Hemoglobin 13.5 gm/dl (12.0-16.0) 10/26/20 10:30 ABG Oxyhemoglobin 98.3 (94-98) H 10/13/20 07:18 ABG Carboxyhemoglobin 1.3 % (0.0-5.0) 10/26/20 10:30 ABG Methemoglobin 0.5 % (0.0-1.5) 10/26/20 10:30 ABG Sodium 135.9 mmol/L (136.0-145.0) L 10/13/20 07:18 ABG Potassium 3.7 mmol/L (3.40-4.50) 10/13/20 07:18 ABG Chloride 111.0 mmol/L (98-107) H 10/13/20 07:18 ABG Glucose 109 mg/dL (65-95) H 10/13/20 07:18 VBG pH 6.949 (7.320-7.420) L* 10/02/20 Unknown Oxyhemoglobin 96.5 % (95.0-99.0) 10/26/20 10:30 Carboxyhemoglobin 0.3 (0.5-1.5) L 10/13/20 07:18 FiO2 25 % 10/26/20 10:30 Sodium 139 mmol/L (137-145) 11/26/20 04:37 Potassium 3.6 mmol/L (3.6-5.0) 11/26/20 04:37 Chloride 101.0 mmol/L (98-107) 11/26/20 04:37 Carbon Dioxide 26 mmol/L (22-30) 11/26/20 04:37 Anion Gap 16 mmol/L 11/26/20 04:37 BUN 9 mg/dL (7-17) 11/26/20 04:37 Creatinine 0.6 mg/dL (0.6-1.2) 11/26/20 04:37 Estimated GFR > 60 ml/min 11/26/20 04:37 BUN/Creatinine Ratio 15 % 11/26/20 04:37 Glucose 109 mg/dL (65-100) H 11/26/20 04:37 POC Glucose 87 mg/dL (70-105) 11/29/20 17:49 Random Insulin 43.2 uIU/mL (<=19.6) H 11/02/20 19:19 Proinsulin See scanned result 11/02/20 19:19 C-Peptide 6.23 ng/mL (0.80-3.85) H 11/02/20 19:19 Lactic Acid 1.90 mmol/L (0.7-2.0) 10/04/20 22:00 Uric Acid 7.5 mg/dL (3.5-7.6) 10/02/20 13:05 Calcium 9.5 mg/dL (8.4-10.2) 11/26/20 04:37 Ionized Calcium 4.4 mg/dL (4.8-5.6) L 10/07/20 21:00 Phosphorus 4.60 mg/dL (2.5-4.5) H 11/13/20 10:05 Magnesium 2.10 mg/dL (1.7-2.3) 11/13/20 10:05 Total Bilirubin 0.50 mg/dL (0.1-1.2) 11/26/20 04:37 AST 51 units/L (5-40) H 11/26/20 04:37 ALT 42 units/L (7-56) 11/26/20 04:37 Alkaline Phosphatase 117 units/L (35-129) 11/26/20 04:37 Lactate Dehydrogenase 769 units/L (91-180) H 10/02/20 13:05 C-Reactive Protein 0.70 mg/dL (0.00-1.30) 11/11/20 13:50 NT-Pro-B Natriuret Pep 2788 pg/mL (0-450) H 10/04/20 10:00 Total Protein 7.8 g/dL (6.3-8.2) 11/26/20 04:37 Albumin 3.9 g/dL (3.9-5) 11/26/20 04:37 Albumin/Globulin Ratio 1.0 % 11/26/20 04:37 Procalcitonin < 0.05 ng/mL (<0.15) 11/11/20 13:50 Arterial Blood Glucose 109 mg/dL (65-95) H 10/13/20 07:18 Arterial Blood Ionized Calcium 4.6 mg/dL (4.6-5.3) 10/13/20 07:18 Urine Color Yellow (Yellow) 11/11/20 13:50 Urine Turbidity Cloudy (Clear) 11/11/20 13:50 Urine pH 6.0 (5.0-7.0) 11/11/20 13:50 Ur Specific Hugo 1.013 (1.003-1.030) 11/11/20 13:50 Urine Protein 100 mg/dl mg/dL (Negative) 11/11/20 13:50 Urine Glucose (UA) Neg mg/dL (Negative) 11/11/20 13:50 Urine Ketones Neg mg/dL (Negative) 11/11/20 13:50 Urine Blood Mod (Negative) 11/11/20 13:50 Urine Nitrite Pos (Negative) 11/11/20 13:50 Urine Bilirubin Neg (Negative) 11/11/20 13:50 Urine Urobilinogen 2.0 mg/dL (<2.0) 11/11/20 13:50 Ur Leukocyte Esterase Lg (Negative) 11/11/20 13:50 Urine WBC (Auto) > 182.0 /HPF (0.0-6.0) H 11/11/20 13:50 Urine RBC (Auto) > 182.0 /HPF (0.0-6.0) 11/11/20 13:50 U Epithel Cells (Auto) 1.0 /HPF (0-13.0) 11/11/20 13:50 Urine Bacteria (Auto) 4+ /HPF (Negative) 11/11/20 13:50 Urine WBC Clumps 3+ /HPF 11/11/20 13:50 Calcium Oxalate Crystal Few 11/11/20 13:50 Urine Mucus Few /HPF 11/11/20 13:50 Vancomycin Trough 12.6 ug/mL (5.0-20.0) 10/21/20 13:54 Random Vancomycin 10.7 ug/mL (0-40.0) 10/16/20 13:09 Phenytoin 5.7 ug/mL (10.0-20.0) L 10/13/20 07:00 C. difficile Tox (PCR) Positive (Negative) 10/16/20 10:22 Coronavirus (PCR) Negative (Negative) 10/08/20 14:15 Blood Type O POSITIVE 10/02/20 12:50 Antibody Screen Negative 10/02/20 12:50 Crossmatch See Detail 10/02/20 12:50 - Diagnostic Impressions Diagnostic Impressions: Echocardiogram 10/03/20 13:42 Transthoracic Echocardiogram Indication: S/P Cardiac Arrest R/O Cardiomyopathy BP: 133/71 Conclusions *Global left ventricular systolic function is normal. *The estimated ejection fraction is 60-65%. *There is trace of mitral regurgitation. *The right 0heart chambers are both slightly dilated. *There is mild tricuspid regurgitation. *There is mild-moderate pulmonary hypertension. *The right ventricular systolic pressure is calculated at 44 mmHg. *The study quality is technically difficult. Findings Procedure Info: The study quality is technically difficult. The study is technically limited due to patient body habitus. The study was technically limited due to the patient's inability to lay in the left lateral decubitus position. Left Ventricle: The left ventricular chamber size is normal. There is no left ventricular hypertrophy. Global left ventricular systolic function is normal. The estimated ejection fraction is 60-65%. Left Atrium: The left atrial chamber size is normal. Right Ventricle: The right ventricle is slightly dilated. Right Atrium: The right atrium is mildly dilated. Aortic Valve: The aortic valve leaflets are mildly thickened. There is no evidence of aortic regurgitation. There is no evidence of aortic stenosis. Mitral Valve: The mitral valve leaflets are mildly thickened. There is trace of mitral regurgitation. There is no evidence of mitral stenosis. Tricuspid Valve: There is mild tricuspid regurgitation. The right ventricular systolic pressure is calculated at 44 mmHg. There is evidence of mild pulmonary hypertension. Pulmonic Valve: There is trace pulmonic regurgitation. Pericardium: There is no pericardial effusion. Aorta: There is no dilatation of the ascending aorta. There is no dilatation of the aortic root. Venous: The inferior vena cava is dilated. Measurements Chambers 2D Name Value Normal Range IVSd (2D) 1 cm (0.6 - 1.1) LVPWd (2D) 1.01 cm (0.6 - 1.1) LVIDd (2D) 4.58 cm (3.7 - 5.6) LVIDs (2D) 3.17 cm (2 - 3.8) LV FS (2D) 30.93 % - EF Teichholz (2D) 58.66 % - Ao root diameter (2D) 2.94 cm (2 - 3.7) Volumes/Mass Name Value Normal Range LA ESV SP 4CH (A/L) 72.82 ml - LA ESV SP 2CH (A/L) 66.86 ml - LA ESV BP (A/L) 74.49 ml - LA ESV SP 4CH (MOD) 71.03 ml - LA ESV SP 2CH (MOD) 64.3 ml - LV EDV SP 4CH (MOD) 98.82 ml - LV ESV SP 4CH (MOD) 24.8 ml - EF SP 4CH (MOD) 74.9 % - LV EDV SP 2CH (MOD) 86.1 ml - LV ESV SP 2CH (MOD) 36.93 ml - EF SP 2CH (MOD) 57.11 % - LV EDV BP 94.4 ml - LV ESV BP 32.66 ml - BP EF (MOD) 65.4 % - Diastolic/Systolic Function Name Value Normal Range MV E-wave Vmax 1.04 m/sec - MV deceleration time 160.46 msec - MV A-wave Vmax 0.92 m/sec - MV E:A ratio 1.14 ratio - Aortic Valve Name Value Normal Range AV Vmax 2.12 m/sec - AV VTI 22.37 cm - AV peak gradient 17.95 mmHg - AV mean gradient 7.29 mmHg - LVOT diameter 2.01 cm - LVOT Vmax 1.8 m/sec - LVOT VTI 27.17 cm - LVOT peak gradient 12.91 mmHg - LVOT mean gradient 6.83 mmHg - SV LVOT 86.42 ml - ANITA (continuity Vmax) 2.7 cm2 - AINTA (continuity VTI) 3.86 cm2 - Ascending Ao 3.18 cm - Tricuspid Valve Name Value Normal Range TV E-wave Vmax 0.88 m/sec - TR Vmax 3.01 m/sec - TR peak gradient 36.27 mmHg - RAP 8 mmHg - RVSP 44 mmHg - IVC diameter 2.65 cm (1.2 - 2.3) Pulmonic Valve/Qp:Qs Name Value Normal Range PV Vmax 1.22 m/sec - PV peak gradient 5.91 mmHg - RVOT Vmax 0.87 m/sec - RVOT VTI 13.32 cm - RVOT peak gradient 3 mmHg - PV acceleration time 110.37 msec - [place]/IV: Voiding Method Incontinent IV Catheter Type [Right Foot] INT / Saline Lock IV Catheter Type [Left Forearm Peripheral IV ] IV Catheter Type [Left Wrist] INT / Saline Lock IV Catheter Type [Right Hand] INT / Saline Lock IV Catheter Type [Right INT / Saline Lock Antecubital] IV Catheter Type [Right Upper Mid-line arm] IV Catheter Type [Left Triple Lumen Cath Internal Jugular] IV Catheter Type [Left Hand] Peripheral IV IV Catheter Type [Left Peripheral IV Antecubital] Active Medications - Current Medications Current Medications: Generic Name Dose Route Start Last Admin Trade Name Freq PRN Reason Stop Dose Admin Acetaminophen 650 mg 10/05/20 16:34 11/30/20 06:30 Acetaminophen 325 Mg/10.15 Ml Oral Liqd Unit Dose FEEDTUBE 650 mg Q6H PRN Administration Non Cardiac Pain or Temp>100.5 Albuterol 2.5 mg 11/05/20 13:03 11/06/20 13:04 Albuterol 2.5 Mg/3 Ml Nebu IH 2.5 mg Q4HRT PRN Administration Shortness Of Breath Lipase/Protease/Amylase 1 each 10/05/20 11:09 Lipase 10,500/Protease 25,000/Amylase 43,750 (Units) Dr Barakat FEEDTUBE PRN PRN For Clogged Feeding Tube Enoxaparin Sodium 40 mg 10/22/20 10:00 11/30/20 09:52 Enoxaparin 40 Mg/0.4 Ml Inj SUB-Q 40 mg DAILY ERINN Administration Protocol Famotidine 20 mg 10/07/20 10:00 11/30/20 09:51 Famotidine 20 Mg Tab PO 20 mg BID ERINN Administration Furosemide 40 mg 10/17/20 10:00 11/30/20 09:51 Furosemide 40 Mg Tab PO 40 mg QDAY ERINN Administration Hydralazine HCl 20 mg 10/07/20 11:49 10/17/20 07:20 Hydralazine 20 Mg/1 Ml Inj IV 20 mg Q6H PRN Administration SBP >170 Hydralazine HCl 50 mg 10/17/20 09:00 11/30/20 06:31 Hydralazine 25 Mg Tab PO 50 mg Q8HR ERINN Administration Dextrose 1,000 mls @ 75 mls/hr 10/13/20 11:00 11/30/20 06:32 D10w IV 75 mls/hr DIRECT ERINN Administration Labetalol HCl 300 mg 11/16/20 17:00 11/30/20 08:25 Labetalol 200 Mg Tab PO Not Given TID ERINN Simple Syrup 15 ml 10/05/20 11:09 Simple Syrup 15 Ml FEEDTUBE PRN PRN Hypoglycemia Simple Syrup 30 ml 10/05/20 11:09 Simple Syrup 15 Ml FEEDTUBE PRN PRN Hypoglycemia Sodium Bicarbonate 325 mg 10/05/20 11:09 11/24/20 11:51 Sodium Bicarbonate 325 Mg Tab FEEDTUBE 325 mg PRN PRN Administration For Clogged Feeding Tube Sodium Bicarbonate 1,300 mg 10/13/20 14:00 11/30/20 08:22 Sodium Bicarbonate 650 Mg Tab PO 1,300 mg TID ERINN Administration Topiramate 50 mg 10/05/20 11:00 11/30/20 09:52 Topiramate Tab 25 Mg Tab PO 50 mg Q12HR ERINN Administration Nutrition/Malnutrition Assess - Dietary Evaluation Nutrition/Malnutrition Findings: Nutrition Notes Start: 10/04/20 11:13 Freq: Status: Active Protocol: Document 11/24/20 11:24 CW (Rec: 11/24/20 11:47 CW [id number]) Nutrition Notes Initial or Follow up Reassessment Current Diagnosis Acute Kidney Injury, Respiratory Failure Other Pertinent Diagnosis C-Diff, Cardiac arrest, s/p c- section and supracervical hysterectomy Current Diet Jevity 1.2 at 60 ml/hr Labs/Tests BG 108 Pertinent Medications Lasix D10w at 75ml/hr Height 5 ft 8 in Weight 102.5 kg [place] Body Weight (kg) 63.63 BMI 34.3 Weight change and time frame 2.4% weight loss x 1 week; likely d/t diuertics usage Weight Status Obese Subjective/Other Information F/U for TF tolerance, POC. T- Piece in place. POC. Pt continues to tolerate TF. Pt has vaginal rash that's being treated by wound care. Awaiting SNF placement. Percent of energy/protein needs met: 100%/96% Burn Absent Trauma Absent GI Symptoms None Food Allergy Yes Current % PO Negligible Minimum of two criteria Yes Interpretation of Weight Loss (severe) >2% in 1 week Fluid Accumulation Mild (non-severe) #2 Nutrition Diagnosis Malnutrition Diagnosis Progress(for reassessment Continues documentation) #1 Nutrition Diagnosis Inadequate oral intake Diagnosis Progress(for reassessment Continues documentation) Is patient on ventilator? No Is Patient Ambulatory and/or Out of Bed No REE-([facility]-confined to bed) 2142.048 Kcal/Kg value to use for calculation 16 Approximate Energy Requirements Using 1640 kcal/Kg Calculation Used for Recommendations Kcal/kg Additional Notes Protein needs are 66-83g (0.8- 1g/kg AdjBW 83kg) Fluid needs are 1ml/kcal Nutrition Intervention Change Diet Order: Continue Nutrition Support: Jevity 1.2 at 60ml/hr. Flush 100ml q4h. Kcal 1,728 Protein (gm) 80 Fluid (mL) 1,162 Goal #1 TF tolerance Goal #2 Meet at least 75% of energy and protein needs Anticipated Discharge Needs: Unable to determine at this time Follow-Up By: 12/01/20 Additional Comments F/U for TF tolerance, stable weight, POC
[2020-12-01] MEDS: hydrALAZINE 25 MG TAB PO SCH ×3 (05:26→22:05)
[2020-12-01] MEDS: DEXTROSE 10% IN WATER 1,000 ML IV SCH ×2 (07:10→20:22)
--- NOTE | 2020-12-01 09:15 | Progress Note ---
Assessment and Plan Assessment and plan: --Cardiac arrest; 10/07/2020 ,status post CPR --Acute hypoxic brain injury; Supportive care, closely monitor --Acute hypoxic respiratory failure: Tracheostomy on T-piece , today on 4.5 L oxygen, saturating 100% Supportive care, Pulmonary critical following --Persistent hypoglycemia; patient is requiring continuous D10 W infusion CT abdomen done to rule out insulinoma, CT abdomen report negative for pancreatic tumor We will closely monitor COVID-19 negative C. difficile positive; Patient on contact isolation Completed treatment --Sepsis; received antibiotics Continue to monitor off antibiotics ID following --COVID-19 test negative; 10/08/2020 --C. difficile colitis test; positive; 10/16/2020 --Acute metabolic encephalopathy --Acute kidney injury; vasomotor nephropathy Resolved, renal function within normal limits, closely monitor --Shock; monitor off pressors Blood pressures reasonable level --DIC; sepsis, septic shock, resolved --History of preeclampsia; / hemorrhage Status post hysterectomy --History of C. difficile colitis; completed oral vancomycin --DVT/SVT and right upper extremity Very poor prognosis, Consults recommendations noted and appreciated We will closely monitor the patient and adjust management as needed Plan of care reviewed with the patient's nurse. Patient is clinically stable Pending placement,discharge to SNF when placement is processed Plan of care reviewed with the patient's nurse Critical care statement The high probability of a clinically significant, sudden or life threatening deterioration of the [MULTIPLE ORGAN] system(s) required my full and direct attention, intervention and personal management. The aggregate critical care time was [33] minutes. This time is in addition to time spent performing reported procedures but includes the following: [X] Data Review and interpretation [X] Patient assessment and monitoring of vital signs [X] Documentation [X] Medication orders and management 30 y/o female patient with Eclampsia/help syndrome, s/p emergent section with DIC, hemorrhage, supracervical abdominal hysterectomy, acute respiratory failure , tracheostomy on T-piece with morbid obesity, s/p cardiac arrest 12/08/2019 status post CPR per ACLS, acute hypoxic brain injury Acute kidney injury improved, severe shock requiring pressors, DIC septic shock improved, history of C. difficile colitis completed treatment with vancomycin. Tracheostomy on T-piece, continues to require 5 L of oxygen. Herpetic flareup, ID started treatment with antibiotics, patient is waiting for SNF placement DC planning per case management 11/13/2020; patient is receiving herpes flareup treatment per ID 11/14/2020; clinically no change, awaiting SNF placement 11/15/2020; clinically no change, tracheostomy on T-piece on 5 L oxygen, awaiting placement 11/16/2020; patient awaiting placement 11/18/2020; abdominal CT scan negative for insulinoma or pancreatic tumor ,clinically no change Awaiting SNF placement 11/19/2020; remains on 4 L of oxygen tracheostomy via T-piece, awaiting SNF teressa cement 11/27/2020; patient remains hypoglycemic on D10 W IV fluids, CT abdomen negative for insulinoma Remains stable awaiting SNF placement, tracheostomy on 5 L oxygen via T-piece 11/28/2020; awaiting SNF placement 11/29/2020; patient remains unresponsive, tracheostomy on T-piece, on 4 to 5 L of oxygen Wean as tolerated, DC planning per case management possible SNF placement 11/30/2020; awaiting SNF placement History Interval history: I have seen and examined the patient at the bedside Patient's chart and medications reviewed Patient is sleeping not in acute distress Remains noncommunicative tracheostomy on T-piece 4 L nasal cannula vital signs reviewed Hospitalist Physical - Constitutional Vitals: Temp Pulse Resp BP Pulse Ox 99.7 F H 119 H 35 H 137/89 99 12/01/20 03:57 12/01/20 07:00 12/01/20 07:00 12/01/20 07:00 12/01/20 07:00 General appearance: Present: no acute distress, well-nourished, obese, other (Noncommunicative) - EENT Eyes: Present: PERRL, EOM intact - Neck Neck: Present: supple, normal ROM - Respiratory Respiratory effort: normal Respiratory: bilateral: diminished, rhonchi, negative: rales, wheezing - Cardiovascular Rhythm: regular Heart Sounds: Present: S1 & S2 - Extremities Extremities: no ischemia, No edema - Abdominal General gastrointestinal: soft, non-tender, non-distended, normal bowel sounds - Integumentary Integumentary: Present: clear, warm - Psychiatric Psychiatric: other (Noncommunicative) - Neurologic Neurologic: focal deficits (Anoxic brain injury), moves all extremities (And encephalopathic) HEART Score - HEART Score Age: < 45 Risk factors: 1-2 risk factors - Critical Actions Critical Actions: >7 pts:50-65% risk of adverse cardiac event. Early invasive measures Results - Labs CBC & Chem 7: 11/26/20 04:37 11/26/20 04:37 Labs: Laboratory Last Values WBC 9.6 K/mm3 (4.5-11.0) 11/26/20 04:37 RBC 4.53 M/mm3 (3.65-5.03) 11/26/20 04:37 Hgb 12.5 gm/dl (10.1-14.3) 11/26/20 04:37 Hgb Comment See scanned result 10/04/20 Unknown Hct 37.1 % (30.3-42.9) 11/26/20 04:37 MCV 82 fl (79-97) 11/26/20 04:37 MCH 28 pg (28-32) 11/26/20 04:37 MCHC 34 % (30-34) 11/26/20 04:37 RDW 15.4 % (13.2-15.2) H 11/26/20 04:37 Plt Count 290 K/mm3 (140-440) 11/26/20 04:37 Lymph % (Auto) 18.9 % (13.4-35.0) 11/26/20 04:37 [place] % (Auto) 10.1 % (0.0-7.3) H 11/26/20 04:37 Eos % (Auto) 2.2 % (0.0-4.3) 11/26/20 04:37 Baso % (Auto) 0.4 % (0.0-1.8) 11/26/20 04:37 Lymph # (Auto) 1.8 K/mm3 (1.2-5.4) 11/26/20 04:37 [place] # (Auto) 1.0 K/mm3 (0.0-0.8) H 11/26/20 04:37 Eos # (Auto) 0.2 K/mm3 (0.0-0.4) 11/26/20 04:37 Baso # (Auto) 0.0 K/mm3 (0.0-0.1) 11/26/20 04:37 Add Manual Diff Complete 10/29/20 07:56 Total Counted 100 10/29/20 07:56 Seg Neutrophils % 68.4 % (40.0-70.0) 11/26/20 04:37 Seg Neuts % (Manual) 80.0 % (40.0-70.0) H 10/29/20 07:56 Band Neutrophils % 2.0 % 10/15/20 05:50 Lymphocytes % (Manual) 15.0 % (13.4-35.0) 10/29/20 07:56 Reactive Lymphs % (Man) 1.0 % 10/02/20 12:18 Monocytes % (Manual) 4.0 % (0.0-7.3) 10/29/20 07:56 Eosinophils % (Manual) 1.0 % (0.0-4.3) 10/29/20 07:56 Myelocytes % 2.0 % 10/02/20 13:05 Metamyelocytes % 1.0 % 10/14/20 04:00 Nucleated RBC % Not Reportable 10/29/20 07:56 Seg Neutrophils # 6.6 K/mm3 (1.8-7.7) 11/26/20 04:37 Seg Neutrophils # Man 10.9 K/mm3 (1.8-7.7) H 10/29/20 07:56 Band Neutrophils # 0.0 K/mm3 10/29/20 07:56 Lymphocytes # (Manual) 2.0 K/mm3 (1.2-5.4) 10/29/20 07:56 Abs React Lymphs (Man) 0.0 K/mm3 10/29/20 07:56 Monocytes # (Manual) 0.5 K/mm3 (0.0-0.8) 10/29/20 07:56 Eosinophils # (Manual) 0.1 K/mm3 (0.0-0.4) 10/29/20 07:56 Basophils # (Manual) 0.0 K/mm3 (0.0-0.1) 10/29/20 07:56 Metamyelocytes # 0.0 K/mm3 10/29/20 07:56 Myelocytes # 0.0 K/mm3 10/29/20 07:56 Promyelocytes # 0.0 K/mm3 10/29/20 07:56 Blast Cells # 0.0 K/mm3 10/29/20 07:56 WBC Morphology Not Reportable 10/29/20 07:56 Hypersegmented Neuts Not Reportable 10/29/20 07:56 Hyposegmented Neuts Not Reportable 10/29/20 07:56 Hypogranular Neuts Not Reportable 10/29/20 07:56 Smudge Cells Not Reportable 10/29/20 07:56 Toxic Granulation Not Reportable 10/29/20 07:56 Toxic Vacuolation Not Reportable 10/29/20 07:56 Dohle Bodies Not Reportable 10/29/20 07:56 Pelger-Huet Anomaly Not Reportable 10/29/20 07:56 Ester Rods Not Reportable 10/29/20 07:56 Platelet Estimate Consistent w auto 10/29/20 07:56 Clumped Platelets Not Reportable 10/29/20 07:56 Plt Clumps, EDTA Not Reportable 10/29/20 07:56 Large Platelets Few 10/29/20 07:56 Giant Platelets Not Reportable 10/29/20 07:56 Platelet Satelliting Not Reportable 10/29/20 07:56 Plt Morphology Comment Not Reportable 10/29/20 07:56 RBC Morphology Not Reportable 10/29/20 07:56 Dimorphic RBCs Not Reportable 10/29/20 07:56 Polychromasia Rare 10/29/20 07:56 Hypochromasia Few 10/29/20 07:56 Poikilocytosis Not Reportable 10/29/20 07:56 Anisocytosis Not Reportable 10/29/20 07:56 Microcytosis Not Reportable 10/29/20 07:56 Macrocytosis Not Reportable 10/29/20 07:56 Spherocytes Not Reportable 10/29/20 07:56 Pappenheimer Bodies Not Reportable 10/29/20 07:56 Sickle Cells Not Reportable 10/29/20 07:56 Target Cells Few 10/29/20 07:56 Tear Drop Cells Not Reportable 10/29/20 07:56 Ovalocytes Not Reportable 10/29/20 07:56 Stomatocytes Few 10/14/20 04:00 Helmet Cells Not Reportable 10/29/20 07:56 [place] Bodies Not Reportable 10/29/20 07:56 [place] Rings Not Reportable 10/29/20 07:56 [place] Cells Not Reportable 10/29/20 07:56 Bite Cells Not Reportable 10/29/20 07:56 Crenated Cell Not Reportable 10/29/20 07:56 Elliptocytes Not Reportable 10/29/20 07:56 Acanthocytes (Spur) Not Reportable 10/29/20 07:56 Rouleaux Not Reportable 10/29/20 07:56 Hemoglobin C Crystals Not Reportable 10/29/20 07:56 Schistocytes Not Reportable 10/29/20 07:56 Malaria parasites Not Reportable 10/29/20 07:56 Sickle Cell Solubility See scanned result 10/04/20 Unknown Hemoglobin A See scanned result 10/04/20 Unknown Hemoglobin A2 See scanned result 10/04/20 Unknown Hemoglobin A2 Prime See scanned result 10/04/20 Unknown Hemoglobin C See scanned result 10/04/20 Unknown Hemoglobin D See scanned result 10/04/20 Unknown Hemoglobin E See scanned result 10/04/20 Unknown Hgb F Diffential Stain See scanned result 10/04/20 Unknown Hemoglobin F Quant See scanned result 10/04/20 Unknown Hemoglobin G See scanned result 10/04/20 Unknown Hemoglobin S See scanned result 10/04/20 Unknown Hemoglobin [place] See scanned result 10/04/20 Unknown Hemoglobin [place] See scanned result 10/04/20 Unknown Hemoglobin [place] See scanned result 10/04/20 Unknown Variant Hemoglobin See scanned result 10/04/20 Unknown Abnorm Hgb IEF Confirm See scanned result 10/04/20 Unknown Hemoglobin Interpret See scanned result 10/04/20 Unknown Hemoglobinopathy Note See scanned result 10/04/20 Unknown Sharad Bodies Not Reportable 10/29/20 07:56 Hem Pathologist Commnt No 10/29/20 07:56 PT 13.6 Sec. (12.2-14.9) 10/21/20 13:54 INR 1.06 (0.87-1.13) 10/21/20 13:54 APTT 31.6 Sec. (24.2-36.6) 10/03/20 00:40 Fibrinogen 336 mg/dl (211-480) 10/04/20 10:00 D-Dimer 1974.47 ng/mlDDU (0-234) H 11/11/20 13:50 ABG pH 7.459 pH Units (7.350-7.450) H 10/26/20 10:30 POC ABG pCO2 20.7 mmHg (32.0-48.0) L 10/13/20 07:18 ABG pCO2 32.4 mm Hg 10/26/20 10:30 POC ABG pO2 137.9 mmHg (83-108) H 10/13/20 07:18 ABG pO2 112.2 mm Hg (80.0-90.0) H 10/26/20 10:30 POC ABG HCO3 14.8 10/13/20 07:18 ABG HCO3 22.5 mmol/L (20.0-26.0) 10/26/20 10:30 ABG O2 Saturation 98.2 % (95.0-99.0) 10/26/20 10:30 ABG O2 Content 18.5 (0.0-44) 10/26/20 10:30 POC ABG Base Excess -6.9 10/13/20 07:18 ABG Base Excess -0.6 mmol/L (-2.0-3.0) 10/26/20 10:30 ABG Hemoglobin 13.5 gm/dl (12.0-16.0) 10/26/20 10:30 ABG Oxyhemoglobin 98.3 (94-98) H 10/13/20 07:18 ABG Carboxyhemoglobin 1.3 % (0.0-5.0) 10/26/20 10:30 ABG Methemoglobin 0.5 % (0.0-1.5) 10/26/20 10:30 ABG Sodium 135.9 mmol/L (136.0-145.0) L 10/13/20 07:18 ABG Potassium 3.7 mmol/L (3.40-4.50) 10/13/20 07:18 ABG Chloride 111.0 mmol/L (98-107) H 10/13/20 07:18 ABG Glucose 109 mg/dL (65-95) H 10/13/20 07:18 VBG pH 6.949 (7.320-7.420) L* 10/02/20 Unknown Oxyhemoglobin 96.5 % (95.0-99.0) 10/26/20 10:30 Carboxyhemoglobin 0.3 (0.5-1.5) L 10/13/20 07:18 FiO2 25 % 10/26/20 10:30 Sodium 139 mmol/L (137-145) 11/26/20 04:37 Potassium 3.6 mmol/L (3.6-5.0) 11/26/20 04:37 Chloride 101.0 mmol/L (98-107) 11/26/20 04:37 Carbon Dioxide 26 mmol/L (22-30) 11/26/20 04:37 Anion Gap 16 mmol/L 11/26/20 04:37 BUN 9 mg/dL (7-17) 11/26/20 04:37 Creatinine 0.6 mg/dL (0.6-1.2) 11/26/20 04:37 Estimated GFR > 60 ml/min 11/26/20 04:37 BUN/Creatinine Ratio 15 % 11/26/20 04:37 Glucose 109 mg/dL (65-100) H 11/26/20 04:37 POC Glucose 106 mg/dL (70-105) H 12/01/20 05:52 Random Insulin 43.2 uIU/mL (<=19.6) H 11/02/20 19:19 Proinsulin See scanned result 11/02/20 19:19 C-Peptide 6.23 ng/mL (0.80-3.85) H 11/02/20 19:19 Lactic Acid 1.90 mmol/L (0.7-2.0) 10/04/20 22:00 Uric Acid 7.5 mg/dL (3.5-7.6) 10/02/20 13:05 Calcium 9.5 mg/dL (8.4-10.2) 11/26/20 04:37 Ionized Calcium 4.4 mg/dL (4.8-5.6) L 10/07/20 21:00 Phosphorus 4.60 mg/dL (2.5-4.5) H 11/13/20 10:05 Magnesium 2.10 mg/dL (1.7-2.3) 11/13/20 10:05 Total Bilirubin 0.50 mg/dL (0.1-1.2) 11/26/20 04:37 AST 51 units/L (5-40) H 11/26/20 04:37 ALT 42 units/L (7-56) 11/26/20 04:37 Alkaline Phosphatase 117 units/L (35-129) 11/26/20 04:37 Lactate Dehydrogenase 769 units/L (91-180) H 10/02/20 13:05 C-Reactive Protein 0.70 mg/dL (0.00-1.30) 11/11/20 13:50 NT-Pro-B Natriuret Pep 2788 pg/mL (0-450) H 10/04/20 10:00 Total Protein 7.8 g/dL (6.3-8.2) 11/26/20 04:37 Albumin 3.9 g/dL (3.9-5) 11/26/20 04:37 Albumin/Globulin Ratio 1.0 % 11/26/20 04:37 Procalcitonin < 0.05 ng/mL (<0.15) 11/11/20 13:50 Arterial Blood Glucose 109 mg/dL (65-95) H 10/13/20 07:18 Arterial Blood Ionized Calcium 4.6 mg/dL (4.6-5.3) 10/13/20 07:18 Urine Color Yellow (Yellow) 11/11/20 13:50 Urine Turbidity Cloudy (Clear) 11/11/20 13:50 Urine pH 6.0 (5.0-7.0) 11/11/20 13:50 Ur Specific [place] 1.013 (1.003-1.030) 11/11/20 13:50 Urine Protein 100 mg/dl mg/dL (Negative) 11/11/20 13:50 Urine Glucose (UA) Neg mg/dL (Negative) 11/11/20 13:50 Urine Ketones Neg mg/dL (Negative) 11/11/20 13:50 Urine Blood Mod (Negative) 11/11/20 13:50 Urine Nitrite Pos (Negative) 11/11/20 13:50 Urine Bilirubin Neg (Negative) 11/11/20 13:50 Urine Urobilinogen 2.0 mg/dL (<2.0) 11/11/20 13:50 Ur Leukocyte Esterase Lg (Negative) 11/11/20 13:50 Urine WBC (Auto) > 182.0 /HPF (0.0-6.0) H 11/11/20 13:50 Urine RBC (Auto) > 182.0 /HPF (0.0-6.0) 11/11/20 13:50 U Epithel Cells (Auto) 1.0 /HPF (0-13.0) 11/11/20 13:50 Urine Bacteria (Auto) 4+ /HPF (Negative) 11/11/20 13:50 Urine WBC Clumps 3+ /HPF 11/11/20 13:50 Calcium Oxalate Crystal Few 11/11/20 13:50 Urine Mucus Few /HPF 11/11/20 13:50 Vancomycin Trough 12.6 ug/mL (5.0-20.0) 10/21/20 13:54 Random Vancomycin 10.7 ug/mL (0-40.0) 10/16/20 13:09 Phenytoin 5.7 ug/mL (10.0-20.0) L 10/13/20 07:00 C. difficile Tox (PCR) Positive (Negative) 10/16/20 10:22 Coronavirus (PCR) Negative (Negative) 10/08/20 14:15 Blood Type O POSITIVE 10/02/20 12:50 Antibody Screen Negative 10/02/20 12:50 Crossmatch See Detail 10/02/20 12:50 - Diagnostic Impressions Diagnostic Impressions: Echocardiogram 10/03/20 13:42 Transthoracic Echocardiogram Indication: S/P Cardiac Arrest R/O Cardiomyopathy BP: 133/71 Conclusions *Global left ventricular systolic function is normal. *The estimated ejection fraction is 60-65%. *There is trace of mitral regurgitation. *The right 0heart chambers are both slightly dilated. *There is mild tricuspid regurgitation. *There is mild-moderate pulmonary hypertension. *The right ventricular systolic pressure is calculated at 44 mmHg. *The study quality is technically difficult. Findings Procedure Info: The study quality is technically difficult. The study is technically limited due to patient body habitus. The study was technically limited due to the patient's inability to lay in the left lateral decubitus position. Left Ventricle: The left ventricular chamber size is normal. There is no left ventricular hypertrophy. Global left ventricular systolic function is normal. The estimated ejection fraction is 60-65%. Left Atrium: The left atrial chamber size is normal. Right Ventricle: The right ventricle is slightly dilated. Right Atrium: The right atrium is mildly dilated. Aortic Valve: The aortic valve leaflets are mildly thickened. There is no evidence of aortic regurgitation. There is no evidence of aortic stenosis. Mitral Valve: The mitral valve leaflets are mildly thickened. There is trace of mitral regurgitation. There is no evidence of mitral stenosis. Tricuspid Valve: There is mild tricuspid regurgitation. The right ventricular systolic pressure is calculated at 44 mmHg. There is evidence of mild pulmonary hypertension. Pulmonic Valve: There is trace pulmonic regurgitation. Pericardium: There is no pericardial effusion. Aorta: There is no dilatation of the ascending aorta. There is no dilatation of the aortic root. Venous: The inferior vena cava is dilated. Measurements Chambers 2D Name Value Normal Range IVSd (2D) 1 cm (0.6 - 1.1) LVPWd (2D) 1.01 cm (0.6 - 1.1) LVIDd (2D) 4.58 cm (3.7 - 5.6) LVIDs (2D) 3.17 cm (2 - 3.8) LV FS (2D) 30.93 % - EF Teichholz (2D) 58.66 % - Ao root diameter (2D) 2.94 cm (2 - 3.7) Volumes/Mass Name Value Normal Range LA ESV SP 4CH (A/L) 72.82 ml - LA ESV SP 2CH (A/L) 66.86 ml - LA ESV BP (A/L) 74.49 ml - LA ESV SP 4CH (MOD) 71.03 ml - LA ESV SP 2CH (MOD) 64.3 ml - LV EDV SP 4CH (MOD) 98.82 ml - LV ESV SP 4CH (MOD) 24.8 ml - EF SP 4CH (MOD) 74.9 % - LV EDV SP 2CH (MOD) 86.1 ml - LV ESV SP 2CH (MOD) 36.93 ml - EF SP 2CH (MOD) 57.11 % - LV EDV BP 94.4 ml - LV ESV BP 32.66 ml - BP EF (MOD) 65.4 % - Diastolic/Systolic Function Name Value Normal Range MV E-wave Vmax 1.04 m/sec - MV deceleration time 160.46 msec - MV A-wave Vmax 0.92 m/sec - MV E:A ratio 1.14 ratio - Aortic Valve Name Value Normal Range AV Vmax 2.12 m/sec - AV VTI 22.37 cm - AV peak gradient 17.95 mmHg - AV mean gradient 7.29 mmHg - LVOT diameter 2.01 cm - LVOT Vmax 1.8 m/sec - LVOT VTI 27.17 cm - LVOT peak gradient 12.91 mmHg - LVOT mean gradient 6.83 mmHg - SV LVOT 86.42 ml - ANITA (continuity Vmax) 2.7 cm2 - ANITA (continuity VTI) 3.86 cm2 - Ascending Ao 3.18 cm - Tricuspid Valve Name Value Normal Range TV E-wave Vmax 0.88 m/sec - TR Vmax 3.01 m/sec - TR peak gradient 36.27 mmHg - RAP 8 mmHg - RVSP 44 mmHg - IVC diameter 2.65 cm (1.2 - 2.3) Pulmonic Valve/Qp:Qs Name Value Normal Range PV Vmax 1.22 m/sec - PV peak gradient 5.91 mmHg - RVOT Vmax 0.87 m/sec - RVOT VTI 13.32 cm - RVOT peak gradient 3 mmHg - PV acceleration time 110.37 msec - [place]/IV: Voiding Method Incontinent IV Catheter Type [Right Foot] INT / Saline Lock IV Catheter Type [Left Forearm Peripheral IV ] IV Catheter Type [Left Wrist] INT / Saline Lock IV Catheter Type [Right Hand] INT / Saline Lock IV Catheter Type [Right INT / Saline Lock Antecubital] IV Catheter Type [Right Upper Mid-line arm] IV Catheter Type [Left Triple Lumen Cath Internal Jugular] IV Catheter Type [Left Hand] Peripheral IV IV Catheter Type [Left Peripheral IV Antecubital] Active Medications - Current Medications Current Medications: Generic Name Dose Route Start Last Admin Trade Name Freq PRN Reason Stop Dose Admin Acetaminophen 650 mg 10/05/20 16:34 11/30/20 21:29 Acetaminophen 325 Mg/10.15 Ml Oral Liqd Unit Dose FEEDTUBE 650 mg Q6H PRN Administration Non Cardiac Pain or Temp>100.5 Albuterol 2.5 mg 11/05/20 13:03 11/06/20 13:04 Albuterol 2.5 Mg/3 Ml Nebu IH 2.5 mg Q4HRT PRN Administration Shortness Of Breath Lipase/Protease/Amylase 1 each 10/05/20 11:09 Lipase 10,500/Protease 25,000/Amylase 43,750 (Units) Dr Barakat FEEDTUBE PRN PRN For Clogged Feeding Tube Enoxaparin Sodium 40 mg 10/22/20 10:00 11/30/20 09:52 Enoxaparin 40 Mg/0.4 Ml Inj SUB-Q 40 mg DAILY ERINN Administration Protocol Famotidine 20 mg 10/07/20 10:00 11/30/20 21:30 Famotidine 20 Mg Tab PO 20 mg BID ERINN Administration Furosemide 40 mg 10/17/20 10:00 11/30/20 09:51 Furosemide 40 Mg Tab PO 40 mg QDAY ERINN Administration Hydralazine HCl 20 mg 10/07/20 11:49 10/17/20 07:20 Hydralazine 20 Mg/1 Ml Inj IV 20 mg Q6H PRN Administration SBP >170 Hydralazine HCl 50 mg 10/17/20 09:00 12/01/20 05:26 Hydralazine 25 Mg Tab PO 50 mg Q8HR ERINN Administration Dextrose 1,000 mls @ 75 mls/hr 10/13/20 11:00 12/01/20 07:10 D10w IV 75 mls/hr DIRECT ERINN Administration Labetalol HCl 300 mg 11/16/20 17:00 11/30/20 19:44 Labetalol 200 Mg Tab PO 300 mg TID ERINN Administration Simple Syrup 15 ml 10/05/20 11:09 Simple Syrup 15 Ml FEEDTUBE PRN PRN Hypoglycemia Simple Syrup 30 ml 10/05/20 11:09 Simple Syrup 15 Ml FEEDTUBE PRN PRN Hypoglycemia Sodium Bicarbonate 325 mg 10/05/20 11:09 11/24/20 11:51 Sodium Bicarbonate 325 Mg Tab FEEDTUBE 325 mg PRN PRN Administration For Clogged Feeding Tube Sodium Bicarbonate 1,300 mg 10/13/20 14:00 11/30/20 19:44 Sodium Bicarbonate 650 Mg Tab PO 1,300 mg TID ERINN Administration Topiramate 50 mg 10/05/20 11:00 11/30/20 21:31 Topiramate Tab 25 Mg Tab PO 50 mg Q12HR ERINN Administration Nutrition/Malnutrition Assess - Dietary Evaluation Nutrition/Malnutrition Findings: Nutrition Notes Start: 10/04/20 11:13 Freq: Status: Active Protocol: Document 11/24/20 11:24 CW (Rec: 11/24/20 11:47 CW [email or web address]) Nutrition Notes Initial or Follow up Reassessment Current Diagnosis Acute Kidney Injury, Respiratory Failure Other Pertinent Diagnosis C-Diff, Cardiac arrest, s/p c- section and supracervical hysterectomy Current Diet Jevity 1.2 at 60 ml/hr Labs/Tests BG 108 Pertinent Medications Lasix D10w at 75ml/hr Height 5 ft 8 in Weight 102.5 kg [place] Body Weight (kg) 63.63 BMI 34.3 Weight change and time frame 2.4% weight loss x 1 week; likely d/t diuertics usage Weight Status Obese Subjective/Other Information F/U for TF tolerance, POC. T- Piece in place. POC. Pt continues to tolerate TF. Pt has vaginal rash that's being treated by wound care. Awaiting SNF placement. Percent of energy/protein needs met: 100%/96% Burn Absent Trauma Absent GI Symptoms None Food Allergy Yes Current % PO Negligible Minimum of two criteria Yes Interpretation of Weight Loss (severe) >2% in 1 week Fluid Accumulation Mild (non-severe) #2 Nutrition Diagnosis Malnutrition Diagnosis Progress(for reassessment Continues documentation) #1 Nutrition Diagnosis Inadequate oral intake Diagnosis Progress(for reassessment Continues documentation) Is patient on ventilator? No Is Patient Ambulatory and/or Out of Bed No REE-([facility]-confined to bed) 2142.048 Kcal/Kg value to use for calculation 16 Approximate Energy Requirements Using 1640 kcal/Kg Calculation Used for Recommendations Kcal/kg Additional Notes Protein needs are 66-83g (0.8- 1g/kg AdjBW 83kg) Fluid needs are 1ml/kcal Nutrition Intervention Change Diet Order: Continue Nutrition Support: Jevity 1.2 at 60ml/hr. Flush 100ml q4h. Kcal 1,728 Protein (gm) 80 Fluid (mL) 1,162 Goal #1 TF tolerance Goal #2 Meet at least 75% of energy and protein needs Anticipated Discharge Needs: Unable to determine at this time Follow-Up By: 12/01/20 Additional Comments F/U for TF tolerance, stable weight, POC
[2020-12-01] MEDS: SODIUM BICARBONATE 650 MG TAB PO SCH ×3 (10:02→20:22)
[2020-12-01] MEDS: TOPIRAMATE TAB 25 MG TAB PO SCH ×2 (10:07→22:06)
[2020-12-01] MEDS: FUROSEMIDE 40 MG TAB PO SCH (10:07)
[2020-12-01] MEDS: FAMOTIDINE 20 MG TAB PO SCH ×2 (10:07→22:05)
[2020-12-01] MEDS: ENOXAPARIN 40 MG/0.4 ML INJ SUB-Q SCH (10:10)
[2020-12-02] MEDS: ACETAMINOPHEN 325 MG/10.15 ML ORAL LIQD UNIT DOSE FEEDTUBE PRN ×2 (05:02→21:00)
[2020-12-02] MEDS: hydrALAZINE 25 MG TAB PO SCH ×3 (05:03→21:00)
[2020-12-02] MEDS: SODIUM BICARBONATE 650 MG TAB PO SCH ×3 (08:25→20:51)
[2020-12-02] MEDS: ENOXAPARIN 40 MG/0.4 ML INJ SUB-Q SCH (09:10)
[2020-12-02] MEDS: FAMOTIDINE 20 MG TAB PO SCH ×2 (09:11→21:01)
[2020-12-02] MEDS: FUROSEMIDE 40 MG TAB PO SCH (09:11)
[2020-12-02] MEDS: TOPIRAMATE TAB 25 MG TAB PO SCH (09:11)
[2020-12-02] MEDS: DEXTROSE 10% IN WATER 1,000 ML IV SCH ×2 (09:13→20:57)
--- NOTE | 2020-12-02 09:32 | Progress Note ---
Assessment and Plan Assessment and plan: --Cardiac arrest; 10/07/2020 ,status post CPR --Acute hypoxic brain injury; Supportive care, closely monitor --Acute hypoxic respiratory failure: Tracheostomy on T-piece , today on 4.5 L oxygen, saturating 100% Supportive care, Pulmonary critical following --Persistent hypoglycemia; patient is requiring continuous D10 W infusion CT abdomen done to rule out insulinoma, CT abdomen report negative for pancreatic tumor We will closely monitor COVID-19 negative C. difficile positive; Patient on contact isolation Completed treatment --Sepsis; received antibiotics Continue to monitor off antibiotics ID following --COVID-19 test negative; 10/08/2020 --C. difficile colitis test; positive; 10/16/2020 --Acute metabolic encephalopathy --Acute kidney injury; vasomotor nephropathy Resolved, renal function within normal limits, closely monitor --Shock; monitor off pressors Blood pressures reasonable level --DIC; sepsis, septic shock, resolved --History of preeclampsia; / hemorrhage Status post hysterectomy --History of C. difficile colitis; completed oral vancomycin --DVT/SVT and right upper extremity Very poor prognosis, Consults recommendations noted and appreciated We will closely monitor the patient and adjust management as needed Plan of care reviewed with the patient's nurse. Patient is clinically stable Pending placement,discharge to SNF when placement is processed Plan of care reviewed with the patient's nurse Critical care statement The high probability of a clinically significant, sudden or life threatening deterioration of the [MULTIPLE ORGAN] system(s) required my full and direct attention, intervention and personal management. The aggregate critical care time was [33] minutes. This time is in addition to time spent performing reported procedures but includes the following: [X] Data Review and interpretation [X] Patient assessment and monitoring of vital signs [X] Documentation [X] Medication orders and management 30 y/o female patient with Eclampsia/help syndrome, s/p emergent section with DIC, hemorrhage, supracervical abdominal hysterectomy, acute respiratory failure , tracheostomy on T-piece with morbid obesity, s/p cardiac arrest 12/08/2019 status post CPR per ACLS, acute hypoxic brain injury Acute kidney injury improved, severe shock requiring pressors, DIC septic shock improved, history of C. difficile colitis completed treatment with vancomycin. Tracheostomy on T-piece, continues to require 5 L of oxygen. Herpetic flareup, ID started treatment with antibiotics, patient is waiting for SNF placement DC planning per case management 11/13/2020; patient is receiving herpes flareup treatment per ID 11/14/2020; clinically no change, awaiting SNF placement 11/15/2020; clinically no change, tracheostomy on T-piece on 5 L oxygen, awaiting placement 11/16/2020; patient awaiting placement 11/18/2020; abdominal CT scan negative for insulinoma or pancreatic tumor ,clinically no change Awaiting SNF placement 11/19/2020; remains on 4 L of oxygen tracheostomy via T-piece, awaiting SNF teressa cement 11/27/2020; patient remains hypoglycemic on D10 W IV fluids, CT abdomen negative for insulinoma Remains stable awaiting SNF placement, tracheostomy on 5 L oxygen via T-piece 11/28/2020; awaiting SNF placement 11/29/2020; patient remains unresponsive, tracheostomy on T-piece, on 4 to 5 L of oxygen Wean as tolerated, DC planning per case management possible SNF placement 11/30/2020; awaiting SNF placement 12/02/2020; awaiting placement, stable for discharge History Interval history: I have seen and examined the patient at the bedside in ICU this morning Clinically no change, Unresponsive, tracheostomy, on T-piece 4 to 5 L oxygen Hypoxic encephalopathy, Vital signs reviewed Hospitalist Physical - Constitutional Vitals: Temp Pulse Resp BP Pulse Ox 99 F 108 H 24 116/69 100 12/02/20 08:00 12/02/20 07:00 12/02/20 07:00 12/02/20 07:00 12/02/20 08:50 General appearance: Present: no acute distress, well-nourished, obese, other (Noncommunicative) - EENT Eyes: Present: PERRL, EOM intact - Neck Neck: Present: supple, normal ROM - Respiratory Respiratory effort: normal Respiratory: bilateral: diminished, rhonchi, negative: rales, wheezing - Cardiovascular Rhythm: regular Heart Sounds: Present: S1 & S2 - Extremities Extremities: no ischemia, No edema Extremity abnormal: other - Abdominal General gastrointestinal: soft, non-tender, non-distended, normal bowel sounds - Integumentary Integumentary: Present: clear, warm - Psychiatric Psychiatric: other (Anoxic encephalopathy on vent) - Neurologic Neurologic: other (Anoxic encephalopathy on vent) HEART Score - HEART Score Age: < 45 Risk factors: 1-2 risk factors - Critical Actions Critical Actions: >7 pts:50-65% risk of adverse cardiac event. Early invasive measures Results - Labs CBC & Chem 7: 11/26/20 04:37 11/26/20 04:37 Labs: Laboratory Last Values WBC 9.6 K/mm3 (4.5-11.0) 11/26/20 04:37 RBC 4.53 M/mm3 (3.65-5.03) 11/26/20 04:37 Hgb 12.5 gm/dl (10.1-14.3) 11/26/20 04:37 Hgb Comment See scanned result 10/04/20 Unknown Hct 37.1 % (30.3-42.9) 11/26/20 04:37 MCV 82 fl (79-97) 11/26/20 04:37 MCH 28 pg (28-32) 11/26/20 04:37 MCHC 34 % (30-34) 11/26/20 04:37 RDW 15.4 % (13.2-15.2) H 11/26/20 04:37 Plt Count 290 K/mm3 (140-440) 11/26/20 04:37 Lymph % (Auto) 18.9 % (13.4-35.0) 11/26/20 04:37 [place] % (Auto) 10.1 % (0.0-7.3) H 11/26/20 04:37 Eos % (Auto) 2.2 % (0.0-4.3) 11/26/20 04:37 Baso % (Auto) 0.4 % (0.0-1.8) 11/26/20 04:37 Lymph # (Auto) 1.8 K/mm3 (1.2-5.4) 11/26/20 04:37 [place] # (Auto) 1.0 K/mm3 (0.0-0.8) H 11/26/20 04:37 Eos # (Auto) 0.2 K/mm3 (0.0-0.4) 11/26/20 04:37 Baso # (Auto) 0.0 K/mm3 (0.0-0.1) 11/26/20 04:37 Add Manual Diff Complete 10/29/20 07:56 Total Counted 100 10/29/20 07:56 Seg Neutrophils % 68.4 % (40.0-70.0) 11/26/20 04:37 Seg Neuts % (Manual) 80.0 % (40.0-70.0) H 10/29/20 07:56 Band Neutrophils % 2.0 % 10/15/20 05:50 Lymphocytes % (Manual) 15.0 % (13.4-35.0) 10/29/20 07:56 Reactive Lymphs % (Man) 1.0 % 10/02/20 12:18 Monocytes % (Manual) 4.0 % (0.0-7.3) 10/29/20 07:56 Eosinophils % (Manual) 1.0 % (0.0-4.3) 10/29/20 07:56 Myelocytes % 2.0 % 10/02/20 13:05 Metamyelocytes % 1.0 % 10/14/20 04:00 Nucleated RBC % Not Reportable 10/29/20 07:56 Seg Neutrophils # 6.6 K/mm3 (1.8-7.7) 11/26/20 04:37 Seg Neutrophils # Man 10.9 K/mm3 (1.8-7.7) H 10/29/20 07:56 Band Neutrophils # 0.0 K/mm3 10/29/20 07:56 Lymphocytes # (Manual) 2.0 K/mm3 (1.2-5.4) 10/29/20 07:56 Abs React Lymphs (Man) 0.0 K/mm3 10/29/20 07:56 Monocytes # (Manual) 0.5 K/mm3 (0.0-0.8) 10/29/20 07:56 Eosinophils # (Manual) 0.1 K/mm3 (0.0-0.4) 10/29/20 07:56 Basophils # (Manual) 0.0 K/mm3 (0.0-0.1) 10/29/20 07:56 Metamyelocytes # 0.0 K/mm3 10/29/20 07:56 Myelocytes # 0.0 K/mm3 10/29/20 07:56 Promyelocytes # 0.0 K/mm3 10/29/20 07:56 Blast Cells # 0.0 K/mm3 10/29/20 07:56 WBC Morphology Not Reportable 10/29/20 07:56 Hypersegmented Neuts Not Reportable 10/29/20 07:56 Hyposegmented Neuts Not Reportable 10/29/20 07:56 Hypogranular Neuts Not Reportable 10/29/20 07:56 Smudge Cells Not Reportable 10/29/20 07:56 Toxic Granulation Not Reportable 10/29/20 07:56 Toxic Vacuolation Not Reportable 10/29/20 07:56 Dohle Bodies Not Reportable 10/29/20 07:56 Pelger-Huet Anomaly Not Reportable 10/29/20 07:56 Ester Rods Not Reportable 10/29/20 07:56 Platelet Estimate Consistent w auto 10/29/20 07:56 Clumped Platelets Not Reportable 10/29/20 07:56 Plt Clumps, EDTA Not Reportable 10/29/20 07:56 Large Platelets Few 10/29/20 07:56 Giant Platelets Not Reportable 10/29/20 07:56 Platelet Satelliting Not Reportable 10/29/20 07:56 Plt Morphology Comment Not Reportable 10/29/20 07:56 RBC Morphology Not Reportable 10/29/20 07:56 Dimorphic RBCs Not Reportable 10/29/20 07:56 Polychromasia Rare 10/29/20 07:56 Hypochromasia Few 10/29/20 07:56 Poikilocytosis Not Reportable 10/29/20 07:56 Anisocytosis Not Reportable 10/29/20 07:56 Microcytosis Not Reportable 10/29/20 07:56 Macrocytosis Not Reportable 10/29/20 07:56 Spherocytes Not Reportable 10/29/20 07:56 Pappenheimer Bodies Not Reportable 10/29/20 07:56 Sickle Cells Not Reportable 10/29/20 07:56 Target Cells Few 10/29/20 07:56 Tear Drop Cells Not Reportable 10/29/20 07:56 Ovalocytes Not Reportable 10/29/20 07:56 Stomatocytes Few 10/14/20 04:00 Helmet Cells Not Reportable 10/29/20 07:56 [place] Bodies Not Reportable 10/29/20 07:56 [place] Rings Not Reportable 10/29/20 07:56 Antoine Cells Not Reportable 10/29/20 07:56 Bite Cells Not Reportable 10/29/20 07:56 Crenated Cell Not Reportable 10/29/20 07:56 Elliptocytes Not Reportable 10/29/20 07:56 Acanthocytes (Spur) Not Reportable 10/29/20 07:56 Rouleaux Not Reportable 10/29/20 07:56 Hemoglobin C Crystals Not Reportable 10/29/20 07:56 Schistocytes Not Reportable 10/29/20 07:56 Malaria parasites Not Reportable 10/29/20 07:56 Sickle Cell Solubility See scanned result 10/04/20 Unknown Hemoglobin A See scanned result 10/04/20 Unknown Hemoglobin A2 See scanned result 10/04/20 Unknown Hemoglobin A2 Prime See scanned result 10/04/20 Unknown Hemoglobin C See scanned result 10/04/20 Unknown Hemoglobin D See scanned result 10/04/20 Unknown Hemoglobin E See scanned result 10/04/20 Unknown Hgb F Diffential Stain See scanned result 10/04/20 Unknown Hemoglobin F Quant See scanned result 10/04/20 Unknown Hemoglobin G See scanned result 10/04/20 Unknown Hemoglobin S See scanned result 10/04/20 Unknown Hemoglobin [place] See scanned result 10/04/20 Unknown Hemoglobin [place] See scanned result 10/04/20 Unknown Hemoglobin Analilia See scanned result 10/04/20 Unknown Variant Hemoglobin See scanned result 10/04/20 Unknown Abnorm Hgb IEF Confirm See scanned result 10/04/20 Unknown Hemoglobin Interpret See scanned result 10/04/20 Unknown Hemoglobinopathy Note See scanned result 10/04/20 Unknown Sharad Bodies Not Reportable 10/29/20 07:56 Hem Pathologist Commnt No 10/29/20 07:56 PT 13.6 Sec. (12.2-14.9) 10/21/20 13:54 INR 1.06 (0.87-1.13) 10/21/20 13:54 APTT 31.6 Sec. (24.2-36.6) 10/03/20 00:40 Fibrinogen 336 mg/dl (211-480) 10/04/20 10:00 D-Dimer 1974.47 ng/mlDDU (0-234) H 11/11/20 13:50 ABG pH 7.459 pH Units (7.350-7.450) H 10/26/20 10:30 POC ABG pCO2 20.7 mmHg (32.0-48.0) L 10/13/20 07:18 ABG pCO2 32.4 mm Hg 10/26/20 10:30 POC ABG pO2 137.9 mmHg (83-108) H 10/13/20 07:18 ABG pO2 112.2 mm Hg (80.0-90.0) H 10/26/20 10:30 POC ABG HCO3 14.8 10/13/20 07:18 ABG HCO3 22.5 mmol/L (20.0-26.0) 10/26/20 10:30 ABG O2 Saturation 98.2 % (95.0-99.0) 10/26/20 10:30 ABG O2 Content 18.5 (0.0-44) 10/26/20 10:30 POC ABG Base Excess -6.9 10/13/20 07:18 ABG Base Excess -0.6 mmol/L (-2.0-3.0) 10/26/20 10:30 ABG Hemoglobin 13.5 gm/dl (12.0-16.0) 10/26/20 10:30 ABG Oxyhemoglobin 98.3 (94-98) H 10/13/20 07:18 ABG Carboxyhemoglobin 1.3 % (0.0-5.0) 10/26/20 10:30 ABG Methemoglobin 0.5 % (0.0-1.5) 10/26/20 10:30 ABG Sodium 135.9 mmol/L (136.0-145.0) L 10/13/20 07:18 ABG Potassium 3.7 mmol/L (3.40-4.50) 10/13/20 07:18 ABG Chloride 111.0 mmol/L (98-107) H 10/13/20 07:18 ABG Glucose 109 mg/dL (65-95) H 10/13/20 07:18 VBG pH 6.949 (7.320-7.420) L* 10/02/20 Unknown Oxyhemoglobin 96.5 % (95.0-99.0) 10/26/20 10:30 Carboxyhemoglobin 0.3 (0.5-1.5) L 10/13/20 07:18 FiO2 25 % 10/26/20 10:30 Sodium 139 mmol/L (137-145) 11/26/20 04:37 Potassium 3.6 mmol/L (3.6-5.0) 11/26/20 04:37 Chloride 101.0 mmol/L (98-107) 11/26/20 04:37 Carbon Dioxide 26 mmol/L (22-30) 11/26/20 04:37 Anion Gap 16 mmol/L 11/26/20 04:37 BUN 9 mg/dL (7-17) 11/26/20 04:37 Creatinine 0.6 mg/dL (0.6-1.2) 11/26/20 04:37 Estimated GFR > 60 ml/min 11/26/20 04:37 BUN/Creatinine Ratio 15 % 11/26/20 04:37 Glucose 109 mg/dL (65-100) H 11/26/20 04:37 POC Glucose 110 mg/dL (70-105) H 12/02/20 05:11 Random Insulin 43.2 uIU/mL (<=19.6) H 11/02/20 19:19 Proinsulin See scanned result 11/02/20 19:19 C-Peptide 6.23 ng/mL (0.80-3.85) H 11/02/20 19:19 Lactic Acid 1.90 mmol/L (0.7-2.0) 10/04/20 22:00 Uric Acid 7.5 mg/dL (3.5-7.6) 10/02/20 13:05 Calcium 9.5 mg/dL (8.4-10.2) 11/26/20 04:37 Ionized Calcium 4.4 mg/dL (4.8-5.6) L 10/07/20 21:00 Phosphorus 4.60 mg/dL (2.5-4.5) H 11/13/20 10:05 Magnesium 2.10 mg/dL (1.7-2.3) 11/13/20 10:05 Total Bilirubin 0.50 mg/dL (0.1-1.2) 11/26/20 04:37 AST 51 units/L (5-40) H 11/26/20 04:37 ALT 42 units/L (7-56) 11/26/20 04:37 Alkaline Phosphatase 117 units/L (35-129) 11/26/20 04:37 Lactate Dehydrogenase 769 units/L (91-180) H 10/02/20 13:05 C-Reactive Protein 0.70 mg/dL (0.00-1.30) 11/11/20 13:50 NT-Pro-B Natriuret Pep 2788 pg/mL (0-450) H 10/04/20 10:00 Total Protein 7.8 g/dL (6.3-8.2) 11/26/20 04:37 Albumin 3.9 g/dL (3.9-5) 11/26/20 04:37 Albumin/Globulin Ratio 1.0 % 11/26/20 04:37 Procalcitonin < 0.05 ng/mL (<0.15) 11/11/20 13:50 Arterial Blood Glucose 109 mg/dL (65-95) H 10/13/20 07:18 Arterial Blood Ionized Calcium 4.6 mg/dL (4.6-5.3) 10/13/20 07:18 Urine Color Yellow (Yellow) 11/11/20 13:50 Urine Turbidity Cloudy (Clear) 11/11/20 13:50 Urine pH 6.0 (5.0-7.0) 11/11/20 13:50 Ur Specific Powers 1.013 (1.003-1.030) 11/11/20 13:50 Urine Protein 100 mg/dl mg/dL (Negative) 11/11/20 13:50 Urine Glucose (UA) Neg mg/dL (Negative) 11/11/20 13:50 Urine Ketones Neg mg/dL (Negative) 11/11/20 13:50 Urine Blood Mod (Negative) 11/11/20 13:50 Urine Nitrite Pos (Negative) 11/11/20 13:50 Urine Bilirubin Neg (Negative) 11/11/20 13:50 Urine Urobilinogen 2.0 mg/dL (<2.0) 11/11/20 13:50 Ur Leukocyte Esterase Lg (Negative) 11/11/20 13:50 Urine WBC (Auto) > 182.0 /HPF (0.0-6.0) H 11/11/20 13:50 Urine RBC (Auto) > 182.0 /HPF (0.0-6.0) 11/11/20 13:50 U Epithel Cells (Auto) 1.0 /HPF (0-13.0) 11/11/20 13:50 Urine Bacteria (Auto) 4+ /HPF (Negative) 11/11/20 13:50 Urine WBC Clumps 3+ /HPF 11/11/20 13:50 Calcium Oxalate Crystal Few 11/11/20 13:50 Urine Mucus Few /HPF 11/11/20 13:50 Vancomycin Trough 12.6 ug/mL (5.0-20.0) 10/21/20 13:54 Random Vancomycin 10.7 ug/mL (0-40.0) 10/16/20 13:09 Phenytoin 5.7 ug/mL (10.0-20.0) L 10/13/20 07:00 C. difficile Tox (PCR) Positive (Negative) 10/16/20 10:22 Coronavirus (PCR) Negative (Negative) 10/08/20 14:15 Blood Type O POSITIVE 10/02/20 12:50 Antibody Screen Negative 10/02/20 12:50 Crossmatch See Detail 10/02/20 12:50 - Diagnostic Impressions Diagnostic Impressions: Echocardiogram 10/03/20 13:42 Transthoracic Echocardiogram Indication: S/P Cardiac Arrest R/O Cardiomyopathy BP: 133/71 Conclusions *Global left ventricular systolic function is normal. *The estimated ejection fraction is 60-65%. *There is trace of mitral regurgitation. *The right 0heart chambers are both slightly dilated. *There is mild tricuspid regurgitation. *There is mild-moderate pulmonary hypertension. *The right ventricular systolic pressure is calculated at 44 mmHg. *The study quality is technically difficult. Findings Procedure Info: The study quality is technically difficult. The study is technically limited due to patient body habitus. The study was technically limited due to the patient's inability to lay in the left lateral decubitus position. Left Ventricle: The left ventricular chamber size is normal. There is no left ventricular hypertrophy. Global left ventricular systolic function is normal. The estimated ejection fraction is 60-65%. Left Atrium: The left atrial chamber size is normal. Right Ventricle: The right ventricle is slightly dilated. Right Atrium: The right atrium is mildly dilated. Aortic Valve: The aortic valve leaflets are mildly thickened. There is no evidence of aortic regurgitation. There is no evidence of aortic stenosis. Mitral Valve: The mitral valve leaflets are mildly thickened. There is trace of mitral regurgitation. There is no evidence of mitral stenosis. Tricuspid Valve: There is mild tricuspid regurgitation. The right ventricular systolic pressure is calculated at 44 mmHg. There is evidence of mild pulmonary hypertension. Pulmonic Valve: There is trace pulmonic regurgitation. Pericardium: There is no pericardial effusion. Aorta: There is no dilatation of the ascending aorta. There is no dilatation of the aortic root. Venous: The inferior vena cava is dilated. Measurements Chambers 2D Name Value Normal Range IVSd (2D) 1 cm (0.6 - 1.1) LVPWd (2D) 1.01 cm (0.6 - 1.1) LVIDd (2D) 4.58 cm (3.7 - 5.6) LVIDs (2D) 3.17 cm (2 - 3.8) LV FS (2D) 30.93 % - EF Teichholz (2D) 58.66 % - Ao root diameter (2D) 2.94 cm (2 - 3.7) Volumes/Mass Name Value Normal Range LA ESV SP 4CH (A/L) 72.82 ml - LA ESV SP 2CH (A/L) 66.86 ml - LA ESV BP (A/L) 74.49 ml - LA ESV SP 4CH (MOD) 71.03 ml - LA ESV SP 2CH (MOD) 64.3 ml - LV EDV SP 4CH (MOD) 98.82 ml - LV ESV SP 4CH (MOD) 24.8 ml - EF SP 4CH (MOD) 74.9 % - LV EDV SP 2CH (MOD) 86.1 ml - LV ESV SP 2CH (MOD) 36.93 ml - EF SP 2CH (MOD) 57.11 % - LV EDV BP 94.4 ml - LV ESV BP 32.66 ml - BP EF (MOD) 65.4 % - Diastolic/Systolic Function Name Value Normal Range MV E-wave Vmax 1.04 m/sec - MV deceleration time 160.46 msec - MV A-wave Vmax 0.92 m/sec - MV E:A ratio 1.14 ratio - Aortic Valve Name Value Normal Range AV Vmax 2.12 m/sec - AV VTI 22.37 cm - AV peak gradient 17.95 mmHg - AV mean gradient 7.29 mmHg - LVOT diameter 2.01 cm - LVOT Vmax 1.8 m/sec - LVOT VTI 27.17 cm - LVOT peak gradient 12.91 mmHg - LVOT mean gradient 6.83 mmHg - SV LVOT 86.42 ml - ANITA (continuity Vmax) 2.7 cm2 - ANITA (continuity VTI) 3.86 cm2 - Ascending Ao 3.18 cm - Tricuspid Valve Name Value Normal Range TV E-wave Vmax 0.88 m/sec - TR Vmax 3.01 m/sec - TR peak gradient 36.27 mmHg - RAP 8 mmHg - RVSP 44 mmHg - IVC diameter 2.65 cm (1.2 - 2.3) Pulmonic Valve/Qp:Qs Name Value Normal Range PV Vmax 1.22 m/sec - PV peak gradient 5.91 mmHg - RVOT Vmax 0.87 m/sec - RVOT VTI 13.32 cm - RVOT peak gradient 3 mmHg - PV acceleration time 110.37 msec - [place]/IV: Voiding Method External Female Catheter IV Catheter Type [Right Foot] INT / Saline Lock IV Catheter Type [Left Forearm Peripheral IV ] IV Catheter Type [Left Wrist] INT / Saline Lock IV Catheter Type [Right Hand] INT / Saline Lock IV Catheter Type [Right INT / Saline Lock Antecubital] IV Catheter Type [Right Upper Mid-line arm] IV Catheter Type [Left Triple Lumen Cath Internal Jugular] IV Catheter Type [Left Hand] Peripheral IV IV Catheter Type [Left Peripheral IV Antecubital] Active Medications - Current Medications Current Medications: Generic Name Dose Route Start Last Admin Trade Name Freq PRN Reason Stop Dose Admin Acetaminophen 650 mg 10/05/20 16:34 12/02/20 05:02 Acetaminophen 325 Mg/10.15 Ml Oral Liqd Unit Dose FEEDTUBE 650 mg Q6H PRN Administration Non Cardiac Pain or Temp>100.5 Albuterol 2.5 mg 11/05/20 13:03 11/06/20 13:04 Albuterol 2.5 Mg/3 Ml Nebu IH 2.5 mg Q4HRT PRN Administration Shortness Of Breath Lipase/Protease/Amylase 1 each 10/05/20 11:09 Lipase 10,500/Protease 25,000/Amylase 43,750 (Units) Dr Barakat FEEDTUBE PRN PRN For Clogged Feeding Tube Enoxaparin Sodium 40 mg 10/22/20 10:00 12/02/20 09:10 Enoxaparin 40 Mg/0.4 Ml Inj SUB-Q 40 mg DAILY ERINN Administration Protocol Famotidine 20 mg 10/07/20 10:00 12/02/20 09:11 Famotidine 20 Mg Tab PO 20 mg BID ERINN Administration Furosemide 40 mg 10/17/20 10:00 12/02/20 09:11 Furosemide 40 Mg Tab PO 40 mg QDAY ERINN Administration Hydralazine HCl 20 mg 10/07/20 11:49 10/17/20 07:20 Hydralazine 20 Mg/1 Ml Inj IV 20 mg Q6H PRN Administration SBP >170 Hydralazine HCl 50 mg 10/17/20 09:00 12/02/20 05:03 Hydralazine 25 Mg Tab PO 50 mg Q8HR ERINN Administration Dextrose 1,000 mls @ 75 mls/hr 10/13/20 11:00 12/02/20 09:13 D10w IV 75 mls/hr DIRECT ERINN Administration Labetalol HCl 300 mg 11/16/20 17:00 12/02/20 08:25 Labetalol 200 Mg Tab PO Not Given TID ERINN Simple Syrup 15 ml 10/05/20 11:09 Simple Syrup 15 Ml FEEDTUBE PRN PRN Hypoglycemia Simple Syrup 30 ml 10/05/20 11:09 Simple Syrup 15 Ml FEEDTUBE PRN PRN Hypoglycemia Sodium Bicarbonate 325 mg 10/05/20 11:09 11/24/20 11:51 Sodium Bicarbonate 325 Mg Tab FEEDTUBE 325 mg PRN PRN Administration For Clogged Feeding Tube Sodium Bicarbonate 1,300 mg 10/13/20 14:00 12/02/20 08:25 Sodium Bicarbonate 650 Mg Tab PO 1,300 mg TID ERINN Administration Topiramate 50 mg 10/05/20 11:00 12/02/20 09:11 Topiramate Tab 25 Mg Tab PO 50 mg Q12HR ERINN Administration Nutrition/Malnutrition Assess - Dietary Evaluation Nutrition/Malnutrition Findings: Nutrition Notes Start: 10/04/20 11:13 Freq: Status: Active Protocol: Document 12/01/20 14:38 AL (Rec: 12/01/20 14:51 AL [id number]) Co-Sign 12/01/20 14:38 LP Nutrition Notes Initial or Follow up Reassessment Current Diagnosis Acute Kidney Injury, Respiratory Failure Other Pertinent Diagnosis C-Diff, Cardiac arrest, s/p c- section and supracervical hysterectomy Current Diet Jevity 1.2 at 60 ml/hr Labs/Tests Reviewed Pertinent Medications Lasix D10w at 75ml/hr Height 5 ft 8 in Weight 101.8 kg [place] Body Weight (kg) 63.63 BMI 34.1 Subjective/Other Information F/U for TF tolerance. Pt continues to tolerate Jevity 1 .2 at 60 mls/hr (goal rate). Percent of energy/protein needs met: 100%/96% Burn Absent Trauma Absent GI Symptoms None Food Allergy Yes Current % PO Negligible Minimum of two criteria Yes Interpretation of Weight Loss (severe) >2% in 1 week Fluid Accumulation Mild (non-severe) #2 Nutrition Diagnosis Malnutrition As Evidenced by Signs and Symptoms fluid accumulation and wt loss of 11% in 1 month #1 Nutrition Diagnosis Inadequate oral intake Diagnosis Progress(for reassessment Continues documentation) Is patient on ventilator? No Is Patient Ambulatory and/or Out of Bed No REE-([facility]-confined to bed) 2133.648 Kcal/Kg value to use for calculation 16 Approximate Energy Requirements Using 1629 kcal/Kg Calculation Used for Recommendations Kcal/kg Additional Notes Protein needs are 66-83g (0.8- 1g/kg AdjBW 83kg) Fluid needs are 1ml/kcal Nutrition Intervention Change Diet Order: Continue Nutrition Support: Jevity 1.2 at 60ml/hr. Flush 100ml q4h. Kcal 1,728 Protein (gm) 80 Fluid (mL) 1,162 Goal #1 TF tolerance Goal #2 Meet at least 75% of energy and protein needs Anticipated Discharge Needs: Unable to determine at this time Follow-Up By: 12/08/20 Additional Comments FU for TF tolerance
[2020-12-03] MEDS: hydrALAZINE 25 MG TAB PO SCH ×3 (06:14→22:16)
[2020-12-03] MEDS: ACETAMINOPHEN 325 MG/10.15 ML ORAL LIQD UNIT DOSE FEEDTUBE PRN (06:14)
[2020-12-03] MEDS: DEXTROSE 10% IN WATER 1,000 ML IV SCH (06:16)
[2020-12-03] MEDS: SODIUM BICARBONATE 650 MG TAB PO SCH ×3 (08:11→20:31)
[2020-12-03] MEDS: ENOXAPARIN 40 MG/0.4 ML INJ SUB-Q SCH (10:21)
[2020-12-03] MEDS: FAMOTIDINE 20 MG TAB PO SCH ×2 (10:21→22:17)
[2020-12-03] MEDS: FUROSEMIDE 40 MG TAB PO SCH (10:21)
--- NOTE | 2020-12-03 19:46 | Progress Note ---
Assessment and Plan Assessment and plan: --Cardiac arrest; 10/07/2020 ,status post CPR --Acute hypoxic brain injury; Supportive care, closely monitor --Acute hypoxic respiratory failure: Tracheostomy on T-piece , today on 4.5 L oxygen, saturating 100% Supportive care, Pulmonary critical following --Persistent hypoglycemia; patient is requiring continuous D10 W infusion CT abdomen done to rule out insulinoma, CT abdomen report negative for pancreatic tumor We will closely monitor COVID-19 negative C. difficile positive; Patient on contact isolation Completed treatment --Sepsis; received antibiotics Continue to monitor off antibiotics ID following --COVID-19 test negative; 10/08/2020 --C. difficile colitis test; positive; 10/16/2020 --Acute metabolic encephalopathy --Acute kidney injury; vasomotor nephropathy Resolved, renal function within normal limits, closely monitor --Shock; monitor off pressors Blood pressures reasonable level --DIC; sepsis, septic shock, resolved --History of preeclampsia; / hemorrhage Status post hysterectomy --History of C. difficile colitis; completed oral vancomycin --DVT/SVT and right upper extremity Very poor prognosis, Consults recommendations noted and appreciated We will closely monitor the patient and adjust management as needed Plan of care reviewed with the patient's nurse. Patient is clinically stable Pending placement,discharge to SNF when placement is processed Plan of care reviewed with the patient's nurse Critical care statement The high probability of a clinically significant, sudden or life threatening deterioration of the [MULTIPLE ORGAN] system(s) required my full and direct attention, intervention and personal management. The aggregate critical care time was [33] minutes. This time is in addition to time spent performing reported procedures but includes the following: [X] Data Review and interpretation [X] Patient assessment and monitoring of vital signs [X] Documentation [X] Medication orders and management 30 y/o female patient with Eclampsia/help syndrome, s/p emergent section with DIC, hemorrhage, supracervical abdominal hysterectomy, acute respiratory failure , tracheostomy on T-piece with morbid obesity, s/p cardiac arrest 12/08/2019 status post CPR per ACLS, acute hypoxic brain injury Acute kidney injury improved, severe shock requiring pressors, DIC septic shock improved, history of C. difficile colitis completed treatment with vancomycin. Tracheostomy on T-piece, continues to require 5 L of oxygen. Herpetic flareup, ID started treatment with antibiotics, patient is waiting for SNF placement DC planning per case management 11/13/2020; patient is receiving herpes flareup treatment per ID 11/14/2020; clinically no change, awaiting SNF placement 11/15/2020; clinically no change, tracheostomy on T-piece on 5 L oxygen, awaiting placement 11/16/2020; patient awaiting placement 11/18/2020; abdominal CT scan negative for insulinoma or pancreatic tumor ,clinically no change Awaiting SNF placement 11/19/2020; remains on 4 L of oxygen tracheostomy via T-piece, awaiting SNF teressa cement 11/27/2020; patient remains hypoglycemic on D10 W IV fluids, CT abdomen negative for insulinoma Remains stable awaiting SNF placement, tracheostomy on 5 L oxygen via T-piece 11/28/2020; awaiting SNF placement 11/29/2020; patient remains unresponsive, tracheostomy on T-piece, on 4 to 5 L of oxygen Wean as tolerated, DC planning per case management possible SNF placement 11/30/2020; awaiting SNF placement 12/02/2020; awaiting placement, stable for discharge 12/03/2020; clinically no change, awaiting placement, tracheostomy on T-piece, anoxic brain injury History Interval history: I have seen and examined the patient at the bedside no new events reported by the nursing Patient is noncommunicative/encephalopathic Tracheostomy on T-piece Vital signs noted Hospitalist Physical - Constitutional Vitals: Temp Pulse Resp BP Pulse Ox 99.0 F 115 H 21 127/74 98 12/03/20 16:00 12/03/20 18:00 12/03/20 18:00 12/03/20 18:00 12/03/20 18:00 General appearance: Present: no acute distress, well-nourished, obese, other (Noncommunicative) - EENT Eyes: Present: PERRL, EOM intact - Neck Neck: Present: supple, normal ROM, other (Tracheostomy) - Respiratory Respiratory effort: normal Respiratory: bilateral: diminished, rhonchi, negative: rales, wheezing - Cardiovascular Rhythm: regular Heart Sounds: Present: S1 & S2 - Extremities Extremities: no ischemia, No edema - Abdominal General gastrointestinal: soft, non-tender, non-distended, normal bowel sounds, other (PEG in place) - Integumentary Integumentary: Present: clear, warm - Psychiatric Psychiatric: other (Noncommunicative) - Neurologic Neurologic: other (Noncommunicative) HEART Score - HEART Score Age: < 45 Risk factors: 1-2 risk factors - Critical Actions Critical Actions: >7 pts:50-65% risk of adverse cardiac event. Early invasive measures Results - Labs CBC & Chem 7: 11/26/20 04:37 11/26/20 04:37 Labs: Laboratory Last Values WBC 9.6 K/mm3 (4.5-11.0) 11/26/20 04:37 RBC 4.53 M/mm3 (3.65-5.03) 11/26/20 04:37 Hgb 12.5 gm/dl (10.1-14.3) 11/26/20 04:37 Hgb Comment See scanned result 10/04/20 Unknown Hct 37.1 % (30.3-42.9) 11/26/20 04:37 MCV 82 fl (79-97) 11/26/20 04:37 MCH 28 pg (28-32) 11/26/20 04:37 MCHC 34 % (30-34) 11/26/20 04:37 RDW 15.4 % (13.2-15.2) H 11/26/20 04:37 Plt Count 290 K/mm3 (140-440) 11/26/20 04:37 Lymph % (Auto) 18.9 % (13.4-35.0) 11/26/20 04:37 [place] % (Auto) 10.1 % (0.0-7.3) H 11/26/20 04:37 Eos % (Auto) 2.2 % (0.0-4.3) 11/26/20 04:37 Baso % (Auto) 0.4 % (0.0-1.8) 11/26/20 04:37 Lymph # (Auto) 1.8 K/mm3 (1.2-5.4) 11/26/20 04:37 [place] # (Auto) 1.0 K/mm3 (0.0-0.8) H 11/26/20 04:37 Eos # (Auto) 0.2 K/mm3 (0.0-0.4) 11/26/20 04:37 Baso # (Auto) 0.0 K/mm3 (0.0-0.1) 11/26/20 04:37 Add Manual Diff Complete 10/29/20 07:56 Total Counted 100 10/29/20 07:56 Seg Neutrophils % 68.4 % (40.0-70.0) 11/26/20 04:37 Seg Neuts % (Manual) 80.0 % (40.0-70.0) H 10/29/20 07:56 Band Neutrophils % 2.0 % 10/15/20 05:50 Lymphocytes % (Manual) 15.0 % (13.4-35.0) 10/29/20 07:56 Reactive Lymphs % (Man) 1.0 % 10/02/20 12:18 Monocytes % (Manual) 4.0 % (0.0-7.3) 10/29/20 07:56 Eosinophils % (Manual) 1.0 % (0.0-4.3) 10/29/20 07:56 Myelocytes % 2.0 % 10/02/20 13:05 Metamyelocytes % 1.0 % 10/14/20 04:00 Nucleated RBC % Not Reportable 10/29/20 07:56 Seg Neutrophils # 6.6 K/mm3 (1.8-7.7) 11/26/20 04:37 Seg Neutrophils # Man 10.9 K/mm3 (1.8-7.7) H 10/29/20 07:56 Band Neutrophils # 0.0 K/mm3 10/29/20 07:56 Lymphocytes # (Manual) 2.0 K/mm3 (1.2-5.4) 10/29/20 07:56 Abs React Lymphs (Man) 0.0 K/mm3 10/29/20 07:56 Monocytes # (Manual) 0.5 K/mm3 (0.0-0.8) 10/29/20 07:56 Eosinophils # (Manual) 0.1 K/mm3 (0.0-0.4) 10/29/20 07:56 Basophils # (Manual) 0.0 K/mm3 (0.0-0.1) 10/29/20 07:56 Metamyelocytes # 0.0 K/mm3 10/29/20 07:56 Myelocytes # 0.0 K/mm3 10/29/20 07:56 Promyelocytes # 0.0 K/mm3 10/29/20 07:56 Blast Cells # 0.0 K/mm3 10/29/20 07:56 WBC Morphology Not Reportable 10/29/20 07:56 Hypersegmented Neuts Not Reportable 10/29/20 07:56 Hyposegmented Neuts Not Reportable 10/29/20 07:56 Hypogranular Neuts Not Reportable 10/29/20 07:56 Smudge Cells Not Reportable 10/29/20 07:56 Toxic Granulation Not Reportable 10/29/20 07:56 Toxic Vacuolation Not Reportable 10/29/20 07:56 Dohle Bodies Not Reportable 10/29/20 07:56 Pelger-Huet Anomaly Not Reportable 10/29/20 07:56 Ester Rods Not Reportable 10/29/20 07:56 Platelet Estimate Consistent w auto 10/29/20 07:56 Clumped Platelets Not Reportable 10/29/20 07:56 Plt Clumps, EDTA Not Reportable 10/29/20 07:56 Large Platelets Few 10/29/20 07:56 Giant Platelets Not Reportable 10/29/20 07:56 Platelet Satelliting Not Reportable 10/29/20 07:56 Plt Morphology Comment Not Reportable 10/29/20 07:56 RBC Morphology Not Reportable 10/29/20 07:56 Dimorphic RBCs Not Reportable 10/29/20 07:56 Polychromasia Rare 10/29/20 07:56 Hypochromasia Few 10/29/20 07:56 Poikilocytosis Not Reportable 10/29/20 07:56 Anisocytosis Not Reportable 10/29/20 07:56 Microcytosis Not Reportable 10/29/20 07:56 Macrocytosis Not Reportable 10/29/20 07:56 Spherocytes Not Reportable 10/29/20 07:56 Pappenheimer Bodies Not Reportable 10/29/20 07:56 Sickle Cells Not Reportable 10/29/20 07:56 Target Cells Few 10/29/20 07:56 Tear Drop Cells Not Reportable 10/29/20 07:56 Ovalocytes Not Reportable 10/29/20 07:56 Stomatocytes Few 10/14/20 04:00 Helmet Cells Not Reportable 10/29/20 07:56 [place] Bodies Not Reportable 10/29/20 07:56 [place] Rings Not Reportable 10/29/20 07:56 [place] Cells Not Reportable 10/29/20 07:56 Bite Cells Not Reportable 10/29/20 07:56 Crenated Cell Not Reportable 10/29/20 07:56 Elliptocytes Not Reportable 10/29/20 07:56 Acanthocytes (Spur) Not Reportable 10/29/20 07:56 Rouleaux Not Reportable 10/29/20 07:56 Hemoglobin C Crystals Not Reportable 10/29/20 07:56 Schistocytes Not Reportable 10/29/20 07:56 Malaria parasites Not Reportable 10/29/20 07:56 Sickle Cell Solubility See scanned result 10/04/20 Unknown Hemoglobin A See scanned result 10/04/20 Unknown Hemoglobin A2 See scanned result 10/04/20 Unknown Hemoglobin A2 Prime See scanned result 10/04/20 Unknown Hemoglobin C See scanned result 10/04/20 Unknown Hemoglobin D See scanned result 10/04/20 Unknown Hemoglobin E See scanned result 10/04/20 Unknown Hgb F Diffential Stain See scanned result 10/04/20 Unknown Hemoglobin F Quant See scanned result 10/04/20 Unknown Hemoglobin G See scanned result 10/04/20 Unknown Hemoglobin S See scanned result 10/04/20 Unknown Hemoglobin [place] See scanned result 10/04/20 Unknown Hemoglobin [place] See scanned result 10/04/20 Unknown Hemoglobin Analilia See scanned result 10/04/20 Unknown Variant Hemoglobin See scanned result 10/04/20 Unknown Abnorm Hgb IEF Confirm See scanned result 10/04/20 Unknown Hemoglobin Interpret See scanned result 10/04/20 Unknown Hemoglobinopathy Note See scanned result 10/04/20 Unknown Sharad Bodies Not Reportable 10/29/20 07:56 Hem Pathologist Commnt No 10/29/20 07:56 PT 13.6 Sec. (12.2-14.9) 10/21/20 13:54 INR 1.06 (0.87-1.13) 10/21/20 13:54 APTT 31.6 Sec. (24.2-36.6) 10/03/20 00:40 Fibrinogen 336 mg/dl (211-480) 10/04/20 10:00 D-Dimer 1974.47 ng/mlDDU (0-234) H 11/11/20 13:50 ABG pH 7.459 pH Units (7.350-7.450) H 10/26/20 10:30 POC ABG pCO2 20.7 mmHg (32.0-48.0) L 10/13/20 07:18 ABG pCO2 32.4 mm Hg 10/26/20 10:30 POC ABG pO2 137.9 mmHg (83-108) H 10/13/20 07:18 ABG pO2 112.2 mm Hg (80.0-90.0) H 10/26/20 10:30 POC ABG HCO3 14.8 10/13/20 07:18 ABG HCO3 22.5 mmol/L (20.0-26.0) 10/26/20 10:30 ABG O2 Saturation 98.2 % (95.0-99.0) 10/26/20 10:30 ABG O2 Content 18.5 (0.0-44) 10/26/20 10:30 POC ABG Base Excess -6.9 10/13/20 07:18 ABG Base Excess -0.6 mmol/L (-2.0-3.0) 10/26/20 10:30 ABG Hemoglobin 13.5 gm/dl (12.0-16.0) 10/26/20 10:30 ABG Oxyhemoglobin 98.3 (94-98) H 10/13/20 07:18 ABG Carboxyhemoglobin 1.3 % (0.0-5.0) 10/26/20 10:30 ABG Methemoglobin 0.5 % (0.0-1.5) 10/26/20 10:30 ABG Sodium 135.9 mmol/L (136.0-145.0) L 10/13/20 07:18 ABG Potassium 3.7 mmol/L (3.40-4.50) 10/13/20 07:18 ABG Chloride 111.0 mmol/L (98-107) H 10/13/20 07:18 ABG Glucose 109 mg/dL (65-95) H 10/13/20 07:18 VBG pH 6.949 (7.320-7.420) L* 10/02/20 Unknown Oxyhemoglobin 96.5 % (95.0-99.0) 10/26/20 10:30 Carboxyhemoglobin 0.3 (0.5-1.5) L 10/13/20 07:18 FiO2 25 % 10/26/20 10:30 Sodium 139 mmol/L (137-145) 11/26/20 04:37 Potassium 3.6 mmol/L (3.6-5.0) 11/26/20 04:37 Chloride 101.0 mmol/L (98-107) 11/26/20 04:37 Carbon Dioxide 26 mmol/L (22-30) 11/26/20 04:37 Anion Gap 16 mmol/L 11/26/20 04:37 BUN 9 mg/dL (7-17) 11/26/20 04:37 Creatinine 0.6 mg/dL (0.6-1.2) 11/26/20 04:37 Estimated GFR > 60 ml/min 11/26/20 04:37 BUN/Creatinine Ratio 15 % 11/26/20 04:37 Glucose 109 mg/dL (65-100) H 11/26/20 04:37 POC Glucose 92 mg/dL (70-105) 12/03/20 18:02 Random Insulin 43.2 uIU/mL (<=19.6) H 11/02/20 19:19 Proinsulin See scanned result 11/02/20 19:19 C-Peptide 6.23 ng/mL (0.80-3.85) H 11/02/20 19:19 Lactic Acid 1.90 mmol/L (0.7-2.0) 10/04/20 22:00 Uric Acid 7.5 mg/dL (3.5-7.6) 10/02/20 13:05 Calcium 9.5 mg/dL (8.4-10.2) 11/26/20 04:37 Ionized Calcium 4.4 mg/dL (4.8-5.6) L 10/07/20 21:00 Phosphorus 4.60 mg/dL (2.5-4.5) H 11/13/20 10:05 Magnesium 2.10 mg/dL (1.7-2.3) 11/13/20 10:05 Total Bilirubin 0.50 mg/dL (0.1-1.2) 11/26/20 04:37 AST 51 units/L (5-40) H 11/26/20 04:37 ALT 42 units/L (7-56) 11/26/20 04:37 Alkaline Phosphatase 117 units/L (35-129) 11/26/20 04:37 Lactate Dehydrogenase 769 units/L (91-180) H 10/02/20 13:05 C-Reactive Protein 0.70 mg/dL (0.00-1.30) 11/11/20 13:50 NT-Pro-B Natriuret Pep 2788 pg/mL (0-450) H 10/04/20 10:00 Total Protein 7.8 g/dL (6.3-8.2) 11/26/20 04:37 Albumin 3.9 g/dL (3.9-5) 11/26/20 04:37 Albumin/Globulin Ratio 1.0 % 11/26/20 04:37 Procalcitonin < 0.05 ng/mL (<0.15) 11/11/20 13:50 Arterial Blood Glucose 109 mg/dL (65-95) H 10/13/20 07:18 Arterial Blood Ionized Calcium 4.6 mg/dL (4.6-5.3) 10/13/20 07:18 Urine Color Yellow (Yellow) 11/11/20 13:50 Urine Turbidity Cloudy (Clear) 11/11/20 13:50 Urine pH 6.0 (5.0-7.0) 11/11/20 13:50 Ur Specific [place] 1.013 (1.003-1.030) 11/11/20 13:50 Urine Protein 100 mg/dl mg/dL (Negative) 11/11/20 13:50 Urine Glucose (UA) Neg mg/dL (Negative) 11/11/20 13:50 Urine Ketones Neg mg/dL (Negative) 11/11/20 13:50 Urine Blood Mod (Negative) 11/11/20 13:50 Urine Nitrite Pos (Negative) 11/11/20 13:50 Urine Bilirubin Neg (Negative) 11/11/20 13:50 Urine Urobilinogen 2.0 mg/dL (<2.0) 11/11/20 13:50 Ur Leukocyte Esterase Lg (Negative) 11/11/20 13:50 Urine WBC (Auto) > 182.0 /HPF (0.0-6.0) H 11/11/20 13:50 Urine RBC (Auto) > 182.0 /HPF (0.0-6.0) 11/11/20 13:50 U Epithel Cells (Auto) 1.0 /HPF (0-13.0) 11/11/20 13:50 Urine Bacteria (Auto) 4+ /HPF (Negative) 11/11/20 13:50 Urine WBC Clumps 3+ /HPF 11/11/20 13:50 Calcium Oxalate Crystal Few 11/11/20 13:50 Urine Mucus Few /HPF 11/11/20 13:50 Vancomycin Trough 12.6 ug/mL (5.0-20.0) 10/21/20 13:54 Random Vancomycin 10.7 ug/mL (0-40.0) 10/16/20 13:09 Phenytoin 5.7 ug/mL (10.0-20.0) L 10/13/20 07:00 C. difficile Tox (PCR) Positive (Negative) 10/16/20 10:22 Coronavirus (PCR) Negative (Negative) 10/08/20 14:15 Blood Type O POSITIVE 10/02/20 12:50 Antibody Screen Negative 10/02/20 12:50 Crossmatch See Detail 10/02/20 12:50 - Diagnostic Impressions Diagnostic Impressions: Echocardiogram 10/03/20 13:42 Transthoracic Echocardiogram Indication: S/P Cardiac Arrest R/O Cardiomyopathy BP: 133/71 Conclusions *Global left ventricular systolic function is normal. *The estimated ejection fraction is 60-65%. *There is trace of mitral regurgitation. *The right 0heart chambers are both slightly dilated. *There is mild tricuspid regurgitation. *There is mild-moderate pulmonary hypertension. *The right ventricular systolic pressure is calculated at 44 mmHg. *The study quality is technically difficult. Findings Procedure Info: The study quality is technically difficult. The study is technically limited due to patient body habitus. The study was technically limited due to the patient's inability to lay in the left lateral decubitus position. Left Ventricle: The left ventricular chamber size is normal. There is no left ventricular hypertrophy. Global left ventricular systolic function is normal. The estimated ejection fraction is 60-65%. Left Atrium: The left atrial chamber size is normal. Right Ventricle: The right ventricle is slightly dilated. Right Atrium: The right atrium is mildly dilated. Aortic Valve: The aortic valve leaflets are mildly thickened. There is no evidence of aortic regurgitation. There is no evidence of aortic stenosis. Mitral Valve: The mitral valve leaflets are mildly thickened. There is trace of mitral regurgitation. There is no evidence of mitral stenosis. Tricuspid Valve: There is mild tricuspid regurgitation. The right ventricular systolic pressure is calculated at 44 mmHg. There is evidence of mild pulmonary hypertension. Pulmonic Valve: There is trace pulmonic regurgitation. Pericardium: There is no pericardial effusion. Aorta: There is no dilatation of the ascending aorta. There is no dilatation of the aortic root. Venous: The inferior vena cava is dilated. Measurements Chambers 2D Name Value Normal Range IVSd (2D) 1 cm (0.6 - 1.1) LVPWd (2D) 1.01 cm (0.6 - 1.1) LVIDd (2D) 4.58 cm (3.7 - 5.6) LVIDs (2D) 3.17 cm (2 - 3.8) LV FS (2D) 30.93 % - EF Teichholz (2D) 58.66 % - Ao root diameter (2D) 2.94 cm (2 - 3.7) Volumes/Mass Name Value Normal Range LA ESV SP 4CH (A/L) 72.82 ml - LA ESV SP 2CH (A/L) 66.86 ml - LA ESV BP (A/L) 74.49 ml - LA ESV SP 4CH (MOD) 71.03 ml - LA ESV SP 2CH (MOD) 64.3 ml - LV EDV SP 4CH (MOD) 98.82 ml - LV ESV SP 4CH (MOD) 24.8 ml - EF SP 4CH (MOD) 74.9 % - LV EDV SP 2CH (MOD) 86.1 ml - LV ESV SP 2CH (MOD) 36.93 ml - EF SP 2CH (MOD) 57.11 % - LV EDV BP 94.4 ml - LV ESV BP 32.66 ml - BP EF (MOD) 65.4 % - Diastolic/Systolic Function Name Value Normal Range MV E-wave Vmax 1.04 m/sec - MV deceleration time 160.46 msec - MV A-wave Vmax 0.92 m/sec - MV E:A ratio 1.14 ratio - Aortic Valve Name Value Normal Range AV Vmax 2.12 m/sec - AV VTI 22.37 cm - AV peak gradient 17.95 mmHg - AV mean gradient 7.29 mmHg - LVOT diameter 2.01 cm - LVOT Vmax 1.8 m/sec - LVOT VTI 27.17 cm - LVOT peak gradient 12.91 mmHg - LVOT mean gradient 6.83 mmHg - SV LVOT 86.42 ml - ANITA (continuity Vmax) 2.7 cm2 - ANITA (continuity VTI) 3.86 cm2 - Ascending Ao 3.18 cm - Tricuspid Valve Name Value Normal Range TV E-wave Vmax 0.88 m/sec - TR Vmax 3.01 m/sec - TR peak gradient 36.27 mmHg - RAP 8 mmHg - RVSP 44 mmHg - IVC diameter 2.65 cm (1.2 - 2.3) Pulmonic Valve/Qp:Qs Name Value Normal Range PV Vmax 1.22 m/sec - PV peak gradient 5.91 mmHg - RVOT Vmax 0.87 m/sec - RVOT VTI 13.32 cm - RVOT peak gradient 3 mmHg - PV acceleration time 110.37 msec - [place]/IV: Voiding Method External Female Catheter IV Catheter Type [Right Foot] INT / Saline Lock IV Catheter Type [Left Forearm Peripheral IV ] IV Catheter Type [Left Wrist] INT / Saline Lock IV Catheter Type [Right Hand] INT / Saline Lock IV Catheter Type [Right INT / Saline Lock Antecubital] IV Catheter Type [Right Upper Mid-line arm] IV Catheter Type [Left Triple Lumen Cath Internal Jugular] IV Catheter Type [Left Hand] Peripheral IV IV Catheter Type [Left Peripheral IV Antecubital] Active Medications - Current Medications Current Medications: Generic Name Dose Route Start Last Admin Trade Name Freq PRN Reason Stop Dose Admin Acetaminophen 650 mg 10/05/20 16:34 12/03/20 06:14 Acetaminophen 325 Mg/10.15 Ml Oral Liqd Unit Dose FEEDTUBE 650 mg Q6H PRN Administration Non Cardiac Pain or Temp>100.5 Albuterol 2.5 mg 11/05/20 13:03 11/06/20 13:04 Albuterol 2.5 Mg/3 Ml Nebu IH 2.5 mg Q4HRT PRN Administration Shortness Of Breath Lipase/Protease/Amylase 1 each 10/05/20 11:09 Lipase 10,500/Protease 25,000/Amylase 43,750 (Units) Dr Barakat FEEDTUBE PRN PRN For Clogged Feeding Tube Enoxaparin Sodium 40 mg 10/22/20 10:00 12/03/20 10:21 Enoxaparin 40 Mg/0.4 Ml Inj SUB-Q 40 mg DAILY ERINN Administration Protocol Famotidine 20 mg 10/07/20 10:00 12/03/20 10:21 Famotidine 20 Mg Tab PO 20 mg BID ERINN Administration Furosemide 40 mg 10/17/20 10:00 12/03/20 10:21 Furosemide 40 Mg Tab PO 40 mg QDAY ERINN Administration Hydralazine HCl 20 mg 10/07/20 11:49 10/17/20 07:20 Hydralazine 20 Mg/1 Ml Inj IV 20 mg Q6H PRN Administration SBP >170 Hydralazine HCl 50 mg 10/17/20 09:00 12/03/20 13:52 Hydralazine 25 Mg Tab PO 50 mg Q8HR ERINN Administration Labetalol HCl 300 mg 11/16/20 17:00 12/03/20 13:53 Labetalol 200 Mg Tab PO 300 mg TID ERINN Administration Simple Syrup 15 ml 10/05/20 11:09 Simple Syrup 15 Ml FEEDTUBE PRN PRN Hypoglycemia Simple Syrup 30 ml 10/05/20 11:09 Simple Syrup 15 Ml FEEDTUBE PRN PRN Hypoglycemia Sodium Bicarbonate 325 mg 10/05/20 11:09 11/24/20 11:51 Sodium Bicarbonate 325 Mg Tab FEEDTUBE 325 mg PRN PRN Administration For Clogged Feeding Tube Sodium Bicarbonate 1,300 mg 10/13/20 14:00 12/03/20 13:52 Sodium Bicarbonate 650 Mg Tab PO 1,300 mg TID ERINN Administration Nutrition/Malnutrition Assess - Dietary Evaluation Nutrition/Malnutrition Findings: Nutrition Notes Start: 10/04/20 11:13 Freq: Status: Active Protocol: Document 12/01/20 14:38 AL (Rec: 12/01/20 14:51 AL [id number]) Co-Sign 12/01/20 14:38 LP Nutrition Notes Initial or Follow up Reassessment Current Diagnosis Acute Kidney Injury, Respiratory Failure Other Pertinent Diagnosis C-Diff, Cardiac arrest, s/p c- section and supracervical hysterectomy Current Diet Jevity 1.2 at 60 ml/hr Labs/Tests Reviewed Pertinent Medications Lasix D10w at 75ml/hr Height 5 ft 8 in Weight 101.8 kg [place] Body Weight (kg) 63.63 BMI 34.1 Subjective/Other Information F/U for TF tolerance. Pt continues to tolerate Jevity 1 .2 at 60 mls/hr (goal rate). Percent of energy/protein needs met: 100%/96% Burn Absent Trauma Absent GI Symptoms None Food Allergy Yes Current % PO Negligible Minimum of two criteria Yes Interpretation of Weight Loss (severe) >2% in 1 week Fluid Accumulation Mild (non-severe) #2 Nutrition Diagnosis Malnutrition As Evidenced by Signs and Symptoms fluid accumulation and wt loss of 11% in 1 month #1 Nutrition Diagnosis Inadequate oral intake Diagnosis Progress(for reassessment Continues documentation) Is patient on ventilator? No Is Patient Ambulatory and/or Out of Bed No REE-([place]-confined to bed) 2133.648 Kcal/Kg value to use for calculation 16 Approximate Energy Requirements Using 1629 kcal/Kg Calculation Used for Recommendations Kcal/kg Additional Notes Protein needs are 66-83g (0.8- 1g/kg AdjBW 83kg) Fluid needs are 1ml/kcal Nutrition Intervention Change Diet Order: Continue Nutrition Support: Jevity 1.2 at 60ml/hr. Flush 100ml q4h. Kcal 1,728 Protein (gm) 80 Fluid (mL) 1,162 Goal #1 TF tolerance Goal #2 Meet at least 75% of energy and protein needs Anticipated Discharge Needs: Unable to determine at this time Follow-Up By: 12/08/20 Additional Comments FU for TF tolerance
[2020-12-04] MEDS: hydrALAZINE 25 MG TAB PO SCH ×3 (06:13→22:22)
[2020-12-04] MEDS: SODIUM BICARBONATE 650 MG TAB PO SCH ×3 (08:08→20:51)
[2020-12-04] MEDS: ENOXAPARIN 40 MG/0.4 ML INJ SUB-Q SCH (10:11)
[2020-12-04] MEDS: FAMOTIDINE 20 MG TAB PO SCH ×2 (10:11→21:05)
[2020-12-04] MEDS: FUROSEMIDE 40 MG TAB PO SCH (10:11)
--- NOTE | 2020-12-04 19:46 | Progress Note ---
Assessment and Plan Critical care statement The high probability of a clinically significant, sudden or life threatening deterioration of the [MULTIPLE ORGAN] system(s) required my full and direct attention, intervention and personal management. The aggregate critical care time was [33] minutes. This time is in addition to time spent performing reported procedures but includes the following: [X] Data Review and interpretation [X] Patient assessment and monitoring of vital signs [X] Documentation [X] Medication orders and management Assessment and Plan 30 y/o female patient with Eclampsia/help syndrome, s/p emergent section with DIC, hemorrhage, supracervical abdominal hysterectomy, acute respiratory failure , tracheostomy on T-piece with morbid obesity, s/p cardiac arrest 12/08/2019 status post CPR per ACLS, acute hypoxic brain injury Acute kidney injury improved, severe shock requiring pressors, DIC septic shock improved, history of C. difficile colitis completed treatment with vancomycin. Tracheostomy on T-piece, continues to require 5 L of oxygen. Herpetic flareup, ID started treatment with antibiotics, patient is waiting for SNF placement DC planning per case management Assessment and plan: --Persistent hypoglycemia; patient is requiring continuous D10 W infusion CT abdomen done to rule out insulinoma, CT abdomen report negative for pancreatic tumor We will closely monitor --Cardiac arrest; 10/07/2020 ,status post CPR --Acute hypoxic brain injury; Supportive care, closely monitor --Acute hypoxic respiratory failure: Tracheostomy on T-piece , today on 4.5 L oxygen, saturating 100% Supportive care, Pulmonary critical following COVID-19 negative C. difficile positive; Patient on contact isolation Completed treatment --Afebrile: Blood, urine, tracheal aspirate cultures New cultures negative to date Monitor off antibiotics Closely monitor --Sepsis; received antibiotics Continue to monitor off antibiotics ID following --COVID-19 test negative; 10/08/2020 --C. difficile colitis test; positive; 10/16/2020 --Acute metabolic encephalopathy --Acute kidney injury; vasomotor nephropathy Resolved, renal function within normal limits, closely monitor --Shock; monitor of pressors Blood pressures reasonable level --DIC; sepsis, septic shock, resolved --History of preeclampsia; / hemorrhage Status post hysterectomy --History of C. difficile colitis; completed oral vancomycin --DVT/SVT and right upper extremity Very poor prognosis, Consults recommendations noted and appreciated We will closely monitor the patient and adjust management as needed Plan of care reviewed with the patient's nurse. Waiting for [facility] facility placement Subjective Date of service: 12/04/20 Principal diagnosis: Eclampsia/HELLP Syndrome, ADOLPH, DIC; s/p , s/p supracervical hyst Interval history: 30 y/o female patient with Eclampsia/help syndrome, s/p emergent section with DIC, hemorrhage, supracervical abdominal hysterectomy, acute respiratory failure , tracheostomy on T-piece with morbid obesity, s/p cardiac arrest 12/08/2019 status post CPR per ACLS, acute hypoxic brain injury Acute kidney injury improved, severe shock requiring pressors, DIC septic shock improved, history of C. difficile colitis on vancomycin. Tracheostomy on T-piece, continues to require 5 L of oxygen. Brief history; 30 year old -[place] female CHE 10/25/20 at 36w5d who presents with seizures in triage on 10/02/20. Pt was not able to provide history but per pt's , she presented to the hospital to return a 24 hour urine specimen for analysis. She then suddenly reported that she did not feel good. She was taken to labor and delivery and shortly after arrival, she began seizing. During this time, a code met was called because the patient became hypoxic. She was then noted to be without a pulse. Chest compressions were started immediately, and the patient was emergently taken to the operating room for delivery of the fetus. Off note, This patient has had care at [facility] with comanagement by [facility] since 11 wks complicated by ADHD, morbid obesity, genera lized anxiety disorder, panic attacks, chronic narcotic use, fibromyalgia, GERD, Irritable Bowel Syndrome, Migraines, h/o endometrial ablation and ovarian vein embolization, genital herpes, insomnia, LGA fetus, nausea and vomiting, polyhydramnios, quad screen positive for Down's Syndrome, and previous x 3. She is GBS negative. , Patient tracheostomy on ventilatory support, unable to wean, continue supportive care poor prognosis 11:30: Pt brought to L&D triage for evaluation of possible labor. Pt accompanied by her spouse. Pt spouse poor historian; unable to obtain history- allergies at this time. Pt taken from registration to triage area via WC. Pt unresponsive, actively seizing with snorous respirations. electro mechanical technician, Kassy, called and requesting assistance. 11:35: Multiple staff at bedside. Pt 02 sat 67% on nonrebreather, unable to read BP . Yifan Theodore CRNA, at bedside for intubation and assistance with IV insertion. INT attempt by multiple RNs unsuccessful at this time. 11:42: Pt being bagged by KORIN, 02% 79%. No pulse palpated, compressions on at this time; bharati young called and Dr. Newberry preparing OR for emergent c/s. 11:44: Continued compressions on stretcher while transporting pt to OR 1. Pt being bagged with jaw thrust manuever in place by KORIN Stringer student. 11:45: Arrival to OR 1. Dr. Newberry and Dr. Portillo present for emergent c/s. Bharati team arrived for continued care. patient revived and c/s done Patient has been bleeding from C/s site followed by supracervical hysterectomy for severe bleeding, Patient transfused multiple units of PRBC, Patient in DIC. Patient transferred to the ICU Hospital course; 10/03. Patient seen and examined at bedside this morning. Patient is nonresponsive and mechanically ventilated. On pressors. Labs reviewed-has leukocytosis, anemia, thrombocytopenia, ADOLPH and lactic acidosis. Started on IV antibiotics to cover possible sepsis secondary to DIC. Hematology oncology recommendations appreciated-needs additional cryoprecipitate and FFP. Monitor D-dimer, fibrinogen and frequent labs. Nephrology consulted for lactic acidosis and ADOLPH. 10/04. Remains mechanically ventilated. Kevin antibiotics. Labs shows improved acidosis - lactic acid 3.5. Hb drop noted. Getting transfused 2 units PRBCs. Platelet count is ~40k. Continue to monitor labs closely. Critical care team on board. 10/05; xray reviewed, concerning for multifocal infilrate, likely underlying Pneumonia, will add ID consult to assist with management of this critically ill patient, start tube feed, closely monitor renal system 10/06: Resumed care, remains on mechanical ventilation. No active bleeding, H&H stable. Continue to monitor CBC and BMP. Continue IV antibiotic for underlying pneumonia. Follow critical care and ID recommendation. 10/07: Remains on mechanical ventilation. No active bleeding, H&H stable. Critical care following, wean off ventilation as tolerated. 10/08: Patient had another cardiac arrest last night. Remains on mechanical ventilation, update family. Continue supportive care -poor prognosis 10/09: Called patient mother and discussed about patient care and management. Answered all question to best of my knowledge and family satisfaction. Patient remains on mechanical ventilation, cardiac arrest x2 so far. Critically sick, poor prognosis 10/10: remains on mechanical ventilation. h/h stable, no active bleeding. monitor CBC/BMP 10/11: WBC trended up with diarrhea, started on vancomycin po. remains on MV, off pressor, tolerating TF 10/12: remains on MV, off pressor, tolerating TF. called family for update but unable to reach, could not leave message as it was full. cont supportive care, wean off vent as tolerated. 10/13/2020; patient is on mechanical ventilation, tolerating tube feeding. Patient has labored breathing. Neuro was consulted and recommend MRI. Patient is on Precedex. Rectal tube in place. 10/14/2020; patient is on mechanical ventilation, Precedex. Patient had fever and blood culture ordered. Patient is on IV vancomycin per ID recommendation. Neuro consulted and recommend MRI. Continue to monitor. Prognosis is guarded. 10/15/2020; patient is on mechanical ventilation, Precedex. Patient had fever and blood culture ordered. Patient is on IV vancomycin per ID recommendation. Neuro consulted and recommend MRI. Continue to monitor. Prognosis is guarded. 12: Remains with C.DIFF and Bactermia, Poor prognosis. No purposeful movement. MRI and EEG discussed with Intensvisit, Continue aggressive BP control. 3: Blood pressure better controlled MRI done 10/15 shows mild improvement in edema. We will continue to monitor mother was at bedside yesterday. Nursing documentation trach and PEG discussed with the mother including goals of care. She is still in denial about the gravity of her daughters her condition which is understandable considering her age. Continue aggressive management at this time. Await for bacteremia to clear by ID before placing PICC line. 10/19: Patient for possible PEG and Trach, ID following, repeat cultures remain n egative. Poor prognosis 10/20: Pt noted to DVT and SVT in the RUE, Vascular consult and will also obtain Hematology for possible considering changing in Anticoagulation. CONTINUE TO MONITOR H/H and PLT. Family updated by [employer]. Heparin gtt started. Will check CBC and BMP 10/21: Continue supporive care, Diarrhea now resolving, But still with persistent Fever, May need repeat CT/AP per ID, still with profused Encephalopathy 10/22: Continue supportive care, weaning, awaiting repeat Imaging. FOLLOW Fever curve. Enoxparin restarted 10/23: Continue supportive care, wean as tolerated. 10/24; Started on CPAP trial, discussed with pulmonary, still with diarrhea. 10/25: Patients seen and examined, no clinical changes, still with diarrhea. ?meaningful recovery. 10/26: Clinically unchanged, continue CPAP trial, Will discuss with Neurology about re-evaluation, ?Need for repeat CT head. ?PRESS considering initial elevated BP, now stable. 10/27; tracheostomy on vent, weaning trials, vital signs noted, poor prognosis 10/28; unable to wean, tracheostomy on vent. Sepsis. Continue current management. Consults and recommendations noted and appreciated 10/30/2020;Patient on T-piece 5 L of oxygen not in acute distress, noncommunicative 11/02/2020; patient on T-piece 5 L of oxygen 11/03/2020; patient's fever slightly improved low-grade, continue current management, remains on T-piece with 5 L of oxygen 11/04/2020; T-max last 24 hours 100.3 F, new cultures negative to date, monitor off antibiotics Patient is off Levophed, blood pressures reasonable level, tracheostomy on T- piece 3 to 5 L nasal cannula oxygen 11/05/2020; tracheostomy on T-piece patient remains on 5 L of nasal cannula oxygen, unresponsive severe hypoxic brain injury I called patient's mother Ms. Pamela Bassett as well as patient's spouse Mr. Danilo Dimas at [phone] unable to reach them Left voicemail on Ms. Pamela Bassettz phone and encouraged him to call back 11/06/2020; I tried to call again today Ms. Pamela Bassett to discuss patient's condition and treatment plan and update consultants recommendations and patient's prognosis., unable to reach her 11/07/20 Will try LTAC/Hospice 11/08/20 Same condition 11/09/2020 Same condition 11/10/2020; family conference was held by case management yesterday 11/09/2020, family decided and agreed for SNF placement 11/11/2020; patient seen and examined, clinically no change tracheostomy on 5 L of nasal cannula oxygen, hemodynamically and clinically stable for discharge To LTAC versus SNF, DC planning per case management 11/12/2020; clinically no change, continue current management, DC planning per case management possible SNF placement 11/13/2020; patient is receiving herpes flareup treatment per ID 11/14/2020; clinically no change, awaiting SNF placement 11/15/2020; clinically no change, tracheostomy on T-piece on 5 L oxygen, awaiting placement 11/16/2020; patient awaiting placement 11/18/2020; abdominal CT scan negative for insulinoma or pancreatic tumor ,clinically no change Awaiting SNF placement 11/19/2020; remains on 4 L of oxygen tracheostomy via T-piece, awaiting SNF placement 11/20/2020 Awaiting SNF placement 11/21/2020 Waiting for SNF placement 11/22/2020 Waiting for placement 11/23/2020 Waiting for placement 11/24/2020 through 12/24/2020 Patient waiting for placement 11/27/2020; patient remains hypoglycemic on D10 W IV fluids, CT abdomen negative for insulinoma Remains stable awaiting SNF placement, tracheostomy on 5 L oxygen via T-piece 11/28/2020; awaiting SNF placement 11/29/2020; patient remains unresponsive, tracheostomy on T-piece, on 4 to 5 L of oxygen Wean as tolerated, DC planning per case management possible SNF placement 11/30/2020; awaiting SNF placement 12/02/2020; awaiting placement, stable for discharge 12/03/2020; clinically no change, awaiting placement, tracheostomy on T-piece, anoxic brain injury 12/04/2020 Patient has anoxic encephalopathy with anoxic brain brain injury Awaiting placement Objective - Exam Narrative Exam: Patient with tracheostomy - Constitutional Vitals: Vital Signs - 12hr 12/04/20 12/04/20 12/04/20 08:00 08:08 08:10 Temperature 98.5 F Pulse Rate 108 H 98 H Pulse Rate [ 102 H From Monitor] Respiratory 21 Rate Blood Pressure 116/73 116/73 O2 Sat by Pulse 98 98 Oximetry O2 Sat by Pulse 98 Oximetry [ Assessment] 12/04/20 12/04/20 12/04/20 09:00 10:00 11:00 Temperature Pulse Rate 94 H 91 H 100 H Pulse Rate [ From Monitor] Respiratory 19 18 25 H Rate Blood Pressure 108/62 114/62 115/70 O2 Sat by Pulse 98 98 99 Oximetry O2 Sat by Pulse Oximetry [ Assessment] 12/04/20 12/04/20 12/04/20 12:00 13:00 13:17 Temperature 98.0 F Pulse Rate 97 H 101 H 93 H Pulse Rate [ 102 H From Monitor] Respiratory 21 22 Rate Blood Pressure 116/76 135/90 135/90 O2 Sat by Pulse 98 98 Oximetry O2 Sat by Pulse Oximetry [ Assessment] 12/04/20 12/04/20 12/04/20 13:18 14:01 15:01 Temperature Pulse Rate 91 H 101 H 109 H Pulse Rate [ From Monitor] Respiratory Rate Blood Pressure 135/90 147/64 147/64 O2 Sat by Pulse 99 98 Oximetry O2 Sat by Pulse Oximetry [ Assessment] 12/04/20 12/04/20 12/04/20 16:00 16:01 17:00 Temperature 98.8 F Pulse Rate 102 H 96 H Pulse Rate [ 102 H From Monitor] Respiratory Rate Blood Pressure 108/63 119/67 O2 Sat by Pulse 98 99 Oximetry O2 Sat by Pulse Oximetry [ Assessment] 12/04/20 12/04/20 17:08 18:00 Temperature Pulse Rate 108 H Pulse Rate [ From Monitor] Respiratory 12 Rate Blood Pressure 116/75 O2 Sat by Pulse 99 Oximetry O2 Sat by Pulse 99 Oximetry [ Assessment] General appearance: Present: no acute distress, well-nourished - EENT Eyes: PERRL, EOM intact ENT: hearing intact, clear oral mucosa Ears: bilateral: normal - Neck Neck: supple, normal ROM - Respiratory Respiratory effort: normal Respiratory: bilateral: CTA - Breasts Breasts: normal - Cardiovascular Rhythm: regular Heart Sounds: Present: S1 & S2. Absent: gallop, rub Extremities: pulses intact, No edema, normal color, Full ROM - Gastrointestinal General gastrointestinal: Present: soft, non-tender, non-distended, normal bowel sounds - Genitourinary Female genitourinary: normal - Integumentary Integumentary: clear, warm, dry - Musculoskeletal Musculoskeletal: 1, strength equal bilaterally - Neurologic Neurologic: moves all extremities, other (Patient with cecostomy on vent) - Psychiatric Psychiatric: other (Patient had a tracheostomy) - Allied health notes Allied health notes reviewed: nursing - Labs CBC & Chem 7: 11/26/20 04:37 11/26/20 04:37 HEART Score - HEART Score Age: < 45 Risk factors: 1-2 risk factors - Critical Actions Critical Actions: >7 pts:50-65% risk of adverse cardiac event. Early invasive measures
[2020-12-04] MEDS: ACETAMINOPHEN 325 MG/10.15 ML ORAL LIQD UNIT DOSE FEEDTUBE PRN (20:51)
[2020-12-05] MEDS: ACETAMINOPHEN 325 MG/10.15 ML ORAL LIQD UNIT DOSE FEEDTUBE PRN (06:42)
[2020-12-05] MEDS: hydrALAZINE 25 MG TAB PO SCH ×3 (06:42→22:19)
[2020-12-05] MEDS: SODIUM BICARBONATE 650 MG TAB PO SCH ×3 (07:59→20:22)
[2020-12-05] MEDS: FAMOTIDINE 20 MG TAB PO SCH ×2 (09:15→22:18)
[2020-12-05] MEDS: FUROSEMIDE 40 MG TAB PO SCH (09:15)
[2020-12-05] MEDS: ENOXAPARIN 40 MG/0.4 ML INJ SUB-Q SCH (09:15)
[2020-12-05] MEDS: hydrALAZINE 20 MG/1 ML INJ IV PRN (22:10)
[2020-12-06] MEDS: hydrALAZINE 25 MG TAB PO SCH ×3 (05:17→22:03)
--- NOTE | 2020-12-06 08:25 | Progress Note ---
Assessment and Plan Assessment and plan: -- Sepsis with presumed Pneumonia Teated with iv abx, follow Cx -Completed cefepime course 5 days on 10/09/2020 -Check MRSA culture -Start vancomycin p.o. empirically for C. difficile total 10 days, given diarrhea and worsening leukocytosis, --Acute respiratory failure with hypoxia Patient intubated Vent management per CC --DIC (disseminated intravascular coagulation) vs HELLP syndrome Has anemia,thrombocytopenia and elevated liver enzymes Patient received multiple units of RBCs, FFP's, cryo Hematology/oncology recommendations appreciated Continue to trend fibrinogen and INR Critical care on board --Possible Eclampsia/HELLP Syndrome Patient presented with seizure-->hypoxia-->urgent C section-->hysterectomy for severe bleeding/DIC developed severe anemia-->received RBC, plt, FFP, cryo was on max pressors-->now off pressors still on vent, on sedation Hematology following --s/p Cardiac arrest x2 on admission and on 10/07 ACLS protocol followed by revival Echo showed preserved Ef --Shock s/p pressor support Likely hypovolemic. on empirical antibiotics for possible sepsis. Continue to monitor blood pressure closely Trend H&H and transfuse as needed --Lactic acidosis As a result of poor organ perfusion and possible sepsis Continue IV hydration. Lactic acid is trending down Nephrology on board --ADOLPH As a result of hypoperfusion and shock Continue IV hydration Cr stable, follow BMP --DVT prophylaxis Patient presented with DIC No anticoagulants The high probability of a clinically significant, sudden or life threatening deterioration of the [pulmonary] system(s) required my full and direct attention, intervention and personal management. The aggregate critical care t cristhian was [35] minutes. This time is in addition to time spent performing reported procedures but includes the following: [x] Data Review and interpretation [x] Patient assessment and monitoring of vital signs [x] Documentation [x] Medication orders and management brief History 30 year old -Armenian female CHE 10/25/20 at 36w5d who presents with seizures in triage on 10/02/20. Pt was not able to provide history but per pt's , she presented to the hospital to return a 24 hour urine specimen for analysis. She then suddenly reported that she did not feel good. She was taken to labor and delivery and shortly after arrival, she began seizing. During this time, a code met was called because the patient became hypoxic. She was then noted to be without a pulse. Chest compressions were started immediately, and the patient was emergently taken to the operating room for delivery of the fetus. Off note, This patient has had care at [facility] with comanagement by [facility] since 11 wks complicated by ADHD, morbid obesity, gen eralized anxiety disorder, panic attacks, chronic narcotic use, fibromyalgia, GERD, Irritable Bowel Syndrome, Migraines, h/o endometrial ablation and ovarian vein embolization, genital herpes, insomnia, LGA fetus, nausea and vomiting, polyhydramnios, quad screen positive for Down's Syndrome, and previous x 3. She is GBS negative. 11:30: Pt brought to L&D triage for evaluation of possible labor. Pt accompanied by her spouse. Pt spouse poor historian; unable to obtain history- allergies at this time. Pt taken from registration to triage area via WC. Pt unresponsive, actively seizing with snorous respirations. wash driller, Kassy, called and requesting assistance. 11:35: Multiple staff at bedside. Pt 02 sat 67% on nonrebreather, unable to read BP at this time. Yifan Theodore CRNA, at bedside for intubation and assistance with IV insertion. INT attempt by multiple RNs unsuccessful at this time. 11:42: Pt being bagged by KORIN, 02% 79%. No pulse palpated, compressions started at this time; bharati young called and Dr. Newberry preparing OR for emergent c/s. 11:44: Continued compressions on stretcher while transporting pt to OR 1. Pt being bagged with jaw thrust manuever in place by KORIN Stringer student. 11:45: Arrival to OR 1. Dr. Newberry and Dr. Portillo present for emergent c/s. Code team arrived for continued care. patient revived and c/s done Patient has been bleeding from C/s site followed by supracervical hysterectomy for severe bleeding Patient transfused multiple units of PRBC, Patient in DIC. Transferred to the ICU 10/03. Patient seen and examined at bedside this morning. Patient is nonresponsive and mechanically ventilated. On pressors. Labs reviewed-has constanza kocytosis, anemia, thrombocytopenia, ADOLPH and lactic acidosis. Started on IV antibiotics to cover possible sepsis secondary to DIC. Hematology oncology recommendations appreciated-needs additional cryoprecipitate and FFP. Monitor D-dimer, fibrinogen and frequent labs. Nephrology consulted for lactic acidosis and ADOLPH. 10/04. Remains mechanically ventilated. Kevin antibiotics. Labs shows improved acidosis - lactic acid 3.5. Hb drop noted. Getting transfused 2 units PRBCs. Platelet count is ~40k. Continue to monitor labs closely. Critical care team on board. 10/05; xray reviewed, concerning for multifocal infilrate, likely underlying Pneumonia, will add ID consult to assist with management of this critically ill patient, start tube feed, closely monitor renal system 10/06: Resumed care, remains on mechanical ventilation. No active bleeding, H&H stable. Continue to monitor CBC and BMP. Continue IV antibiotic for underlying pneumonia. Follow critical care and ID recommendation. 10/07: Remains on mechanical ventilation. No active bleeding, H&H stable. Critical care following, wean off ventilation as tolerated. 10/08: Patient had another cardiac arrest last night. Remains on mechanical ventilation, update family. Continue supportive care -poor prognosis 10/09: Called patient mother and discussed about patient care and management. Answered all question to best of my knowledge and family satisfaction. Patient remains on mechanical ventilation, cardiac arrest x2 so far. Critically sick, poor prognosis 10/10: remains on mechanical ventilation. h/h stable, no active bleeding. monitor CBC/BMP 10/11: WBC trended up with diarrhea, started on vancomycin po. remains on MV, off pressor, tolerating TF 10/12: remains on MV, off pressor, tolerating TF. called family for update but unable to reach, could not leave message as it was full. cont supportive care, wean off vent as tolerated. 10/13/2020; patient is on mechanical ventilation, tolerating tube feeding. Edis damian has labored breathing. Neuro was consulted and recommend MRI. Patient is on Precedex. Rectal tube in place. 10/14/2020; patient is on mechanical ventilation, Precedex. Patient had fever and blood culture ordered. Patient is on IV vancomycin per ID recommendation. Neuro consulted and recommend MRI. Continue to monitor. Prognosis is guarded. 10/15/2020; patient is on mechanical ventilation, Precedex. Patient had fever and blood culture ordered. Patient is on IV vancomycin per ID recommendation. Neuro consulted and recommend MRI. Continue to monitor. Prognosis is guarded. 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 12/06/20; anoxic brain injury. Awaiting placement. History Interval history: Patient was seen and evaluated this morning Patient is on 5 L of oxygen via trach Patient is does not follow commands Hospitalist Physical - Physical exam Narrative exam: vITAL SIGNS: Reviewed. GENERAL: On trach and PEG HEAD: No signs of head trauma. EYES: Pupils are equal. MOUTH: OT in place NECK: No adenopathy, no JVD. CHEST: Rales posteriorly CARDIAC: normal S1 and S2, without murmurs, gallops, or rubs. ABDOMEN: Soft, non tender and non distended. surgical wound in tact, No rebound or guarding, and no masses palpated. Bowel Sounds normal. MUSCULOSKELETAL: No edema NEUROLOGIC EXAM: Does not follow command SKIN: No obvious lesions - Constitutional Vitals: Temp Pulse Resp BP Pulse Ox 98.8 F 103 H 18 155/74 99 12/06/20 07:00 12/06/20 06:00 12/06/20 06:00 12/06/20 06:00 12/06/20 06:00 General appearance: Present: no acute distress, well-nourished HEART Score - HEART Score Age: < 45 Risk factors: 1-2 risk factors - Critical Actions Critical Actions: >7 pts:50-65% risk of adverse cardiac event. Early invasive measures Results - Labs CBC & Chem 7: 11/26/20 04:37 11/26/20 04:37 Labs: Laboratory Last Values WBC 9.6 K/mm3 (4.5-11.0) 11/26/20 04:37 RBC 4.53 M/mm3 (3.65-5.03) 11/26/20 04:37 Hgb 12.5 gm/dl (10.1-14.3) 11/26/20 04:37 Hgb Comment See scanned result 10/04/20 Unknown Hct 37.1 % (30.3-42.9) 11/26/20 04:37 MCV 82 fl (79-97) 11/26/20 04:37 MCH 28 pg (28-32) 11/26/20 04:37 MCHC 34 % (30-34) 11/26/20 04:37 RDW 15.4 % (13.2-15.2) H 11/26/20 04:37 Plt Count 290 K/mm3 (140-440) 11/26/20 04:37 Lymph % (Auto) 18.9 % (13.4-35.0) 11/26/20 04:37 Whitfield % (Auto) 10.1 % (0.0-7.3) H 11/26/20 04:37 Eos % (Auto) 2.2 % (0.0-4.3) 11/26/20 04:37 Baso % (Auto) 0.4 % (0.0-1.8) 11/26/20 04:37 Lymph # (Auto) 1.8 K/mm3 (1.2-5.4) 11/26/20 04:37 Whitfield # (Auto) 1.0 K/mm3 (0.0-0.8) H 11/26/20 04:37 Eos # (Auto) 0.2 K/mm3 (0.0-0.4) 11/26/20 04:37 Baso # (Auto) 0.0 K/mm3 (0.0-0.1) 11/26/20 04:37 Add Manual Diff Complete 10/29/20 07:56 Total Counted 100 10/29/20 07:56 Seg Neutrophils % 68.4 % (40.0-70.0) 11/26/20 04:37 Seg Neuts % (Manual) 80.0 % (40.0-70.0) H 10/29/20 07:56 Band Neutrophils % 2.0 % 10/15/20 05:50 Lymphocytes % (Manual) 15.0 % (13.4-35.0) 10/29/20 07:56 Reactive Lymphs % (Man) 1.0 % 10/02/20 12:18 Monocytes % (Manual) 4.0 % (0.0-7.3) 10/29/20 07:56 Eosinophils % (Manual) 1.0 % (0.0-4.3) 10/29/20 07:56 Myelocytes % 2.0 % 10/02/20 13:05 Metamyelocytes % 1.0 % 10/14/20 04:00 Nucleated RBC % Not Reportable 10/29/20 07:56 Seg Neutrophils # 6.6 K/mm3 (1.8-7.7) 11/26/20 04:37 Seg Neutrophils # Man 10.9 K/mm3 (1.8-7.7) H 10/29/20 07:56 Band Neutrophils # 0.0 K/mm3 10/29/20 07:56 Lymphocytes # (Manual) 2.0 K/mm3 (1.2-5.4) 10/29/20 07:56 Abs React Lymphs (Man) 0.0 K/mm3 10/29/20 07:56 Monocytes # (Manual) 0.5 K/mm3 (0.0-0.8) 10/29/20 07:56 Eosinophils # (Manual) 0.1 K/mm3 (0.0-0.4) 10/29/20 07:56 Basophils # (Manual) 0.0 K/mm3 (0.0-0.1) 10/29/20 07:56 Metamyelocytes # 0.0 K/mm3 10/29/20 07:56 Myelocytes # 0.0 K/mm3 10/29/20 07:56 Promyelocytes # 0.0 K/mm3 10/29/20 07:56 Blast Cells # 0.0 K/mm3 10/29/20 07:56 WBC Morphology Not Reportable 10/29/20 07:56 Hypersegmented Neuts Not Reportable 10/29/20 07:56 Hyposegmented Neuts Not Reportable 10/29/20 07:56 Hypogranular Neuts Not Reportable 10/29/20 07:56 Smudge Cells Not Reportable 10/29/20 07:56 Toxic Granulation Not Reportable 10/29/20 07:56 Toxic Vacuolation Not Reportable 10/29/20 07:56 Dohle Bodies Not Reportable 10/29/20 07:56 Pelger-Huet Anomaly Not Reportable 10/29/20 07:56 Ester Rods Not Reportable 10/29/20 07:56 Platelet Estimate Consistent w auto 10/29/20 07:56 Clumped Platelets Not Reportable 10/29/20 07:56 Plt Clumps, EDTA Not Reportable 10/29/20 07:56 Large Platelets Few 10/29/20 07:56 Giant Platelets Not Reportable 10/29/20 07:56 Platelet Satelliting Not Reportable 10/29/20 07:56 Plt Morphology Comment Not Reportable 10/29/20 07:56 RBC Morphology Not Reportable 10/29/20 07:56 Dimorphic RBCs Not Reportable 10/29/20 07:56 Polychromasia Rare 10/29/20 07:56 Hypochromasia Few 10/29/20 07:56 Poikilocytosis Not Reportable 10/29/20 07:56 Anisocytosis Not Reportable 10/29/20 07:56 Microcytosis Not Reportable 10/29/20 07:56 Macrocytosis Not Reportable 10/29/20 07:56 Spherocytes Not Reportable 10/29/20 07:56 Pappenheimer Bodies Not Reportable 10/29/20 07:56 Sickle Cells Not Reportable 10/29/20 07:56 Target Cells Few 10/29/20 07:56 Tear Drop Cells Not Reportable 10/29/20 07:56 Ovalocytes Not Reportable 10/29/20 07:56 Stomatocytes Few 10/14/20 04:00 Helmet Cells Not Reportable 10/29/20 07:56 Burk-Virgil Bodies Not Reportable 10/29/20 07:56 Oneida Rings Not Reportable 10/29/20 07:56 Antoine Cells Not Reportable 10/29/20 07:56 Bite Cells Not Reportable 10/29/20 07:56 Crenated Cell Not Reportable 10/29/20 07:56 Elliptocytes Not Reportable 10/29/20 07:56 Acanthocytes (Spur) Not Reportable 10/29/20 07:56 Rouleaux Not Reportable 10/29/20 07:56 Hemoglobin C Crystals Not Reportable 10/29/20 07:56 Schistocytes Not Reportable 10/29/20 07:56 Malaria parasites Not Reportable 10/29/20 07:56 Sickle Cell Solubility See scanned result 10/04/20 Unknown Hemoglobin A See scanned result 10/04/20 Unknown Hemoglobin A2 See scanned result 10/04/20 Unknown Hemoglobin A2 Prime See scanned result 10/04/20 Unknown Hemoglobin C See scanned result 10/04/20 Unknown Hemoglobin D See scanned result 10/04/20 Unknown Hemoglobin E See scanned result 10/04/20 Unknown Hgb F Diffential Stain See scanned result 10/04/20 Unknown Hemoglobin F Quant See scanned result 10/04/20 Unknown Hemoglobin G See scanned result 10/04/20 Unknown Hemoglobin S See scanned result 10/04/20 Unknown Hemoglobin O-Mojave See scanned result 10/04/20 Unknown Hemoglobin Barts See scanned result 10/04/20 Unknown Hemoglobin Analilia See scanned result 10/04/20 Unknown Variant Hemoglobin See scanned result 10/04/20 Unknown Abnorm Hgb IEF Confirm See scanned result 10/04/20 Unknown Hemoglobin Interpret See scanned result 10/04/20 Unknown Hemoglobinopathy Note See scanned result 10/04/20 Unknown Sharad Bodies Not Reportable 10/29/20 07:56 Hem Pathologist Commnt No 10/29/20 07:56 PT 13.6 Sec. (12.2-14.9) 10/21/20 13:54 INR 1.06 (0.87-1.13) 10/21/20 13:54 APTT 31.6 Sec. (24.2-36.6) 10/03/20 00:40 Fibrinogen 336 mg/dl (211-480) 10/04/20 10:00 D-Dimer 1974.47 ng/mlDDU (0-234) H 11/11/20 13:50 ABG pH 7.459 pH Units (7.350-7.450) H 10/26/20 10:30 POC ABG pCO2 20.7 mmHg (32.0-48.0) L 10/13/20 07:18 ABG pCO2 32.4 mm Hg 10/26/20 10:30 POC ABG pO2 137.9 mmHg (83-108) H 10/13/20 07:18 ABG pO2 112.2 mm Hg (80.0-90.0) H 10/26/20 10:30 POC ABG HCO3 14.8 10/13/20 07:18 ABG HCO3 22.5 mmol/L (20.0-26.0) 10/26/20 10:30 ABG O2 Saturation 98.2 % (95.0-99.0) 10/26/20 10:30 ABG O2 Content 18.5 (0.0-44) 10/26/20 10:30 POC ABG Base Excess -6.9 10/13/20 07:18 ABG Base Excess -0.6 mmol/L (-2.0-3.0) 10/26/20 10:30 ABG Hemoglobin 13.5 gm/dl (12.0-16.0) 10/26/20 10:30 ABG Oxyhemoglobin 98.3 (94-98) H 10/13/20 07:18 ABG Carboxyhemoglobin 1.3 % (0.0-5.0) 10/26/20 10:30 ABG Methemoglobin 0.5 % (0.0-1.5) 10/26/20 10:30 ABG Sodium 135.9 mmol/L (136.0-145.0) L 10/13/20 07:18 ABG Potassium 3.7 mmol/L (3.40-4.50) 10/13/20 07:18 ABG Chloride 111.0 mmol/L (98-107) H 10/13/20 07:18 ABG Glucose 109 mg/dL (65-95) H 10/13/20 07:18 VBG pH 6.949 (7.320-7.420) L* 10/02/20 Unknown Oxyhemoglobin 96.5 % (95.0-99.0) 10/26/20 10:30 Carboxyhemoglobin 0.3 (0.5-1.5) L 10/13/20 07:18 FiO2 25 % 10/26/20 10:30 Sodium 139 mmol/L (137-145) 11/26/20 04:37 Potassium 3.6 mmol/L (3.6-5.0) 11/26/20 04:37 Chloride 101.0 mmol/L (98-107) 11/26/20 04:37 Carbon Dioxide 26 mmol/L (22-30) 11/26/20 04:37 Anion Gap 16 mmol/L 11/26/20 04:37 BUN 9 mg/dL (7-17) 11/26/20 04:37 Creatinine 0.6 mg/dL (0.6-1.2) 11/26/20 04:37 Estimated GFR > 60 ml/min 11/26/20 04:37 BUN/Creatinine Ratio 15 % 11/26/20 04:37 Glucose 109 mg/dL (65-100) H 11/26/20 04:37 POC Glucose 93 mg/dL (70-105) 12/05/20 23:46 Random Insulin 43.2 uIU/mL (<=19.6) H 11/02/20 19:19 Proinsulin See scanned result 11/02/20 19:19 C-Peptide 6.23 ng/mL (0.80-3.85) H 11/02/20 19:19 Lactic Acid 1.90 mmol/L (0.7-2.0) 10/04/20 22:00 Uric Acid 7.5 mg/dL (3.5-7.6) 10/02/20 13:05 Calcium 9.5 mg/dL (8.4-10.2) 11/26/20 04:37 Ionized Calcium 4.4 mg/dL (4.8-5.6) L 10/07/20 21:00 Phosphorus 4.60 mg/dL (2.5-4.5) H 11/13/20 10:05 Magnesium 2.10 mg/dL (1.7-2.3) 11/13/20 10:05 Total Bilirubin 0.50 mg/dL (0.1-1.2) 11/26/20 04:37 AST 51 units/L (5-40) H 11/26/20 04:37 ALT 42 units/L (7-56) 11/26/20 04:37 Alkaline Phosphatase 117 units/L (35-129) 11/26/20 04:37 Lactate Dehydrogenase 769 units/L (91-180) H 10/02/20 13:05 C-Reactive Protein 0.70 mg/dL (0.00-1.30) 11/11/20 13:50 NT-Pro-B Natriuret Pep 2788 pg/mL (0-450) H 10/04/20 10:00 Total Protein 7.8 g/dL (6.3-8.2) 11/26/20 04:37 Albumin 3.9 g/dL (3.9-5) 11/26/20 04:37 Albumin/Globulin Ratio 1.0 % 11/26/20 04:37 Procalcitonin < 0.05 ng/mL (<0.15) 11/11/20 13:50 Arterial Blood Glucose 109 mg/dL (65-95) H 10/13/20 07:18 Arterial Blood Ionized Calcium 4.6 mg/dL (4.6-5.3) 10/13/20 07:18 Urine Color Yellow (Yellow) 11/11/20 13:50 Urine Turbidity Cloudy (Clear) 11/11/20 13:50 Urine pH 6.0 (5.0-7.0) 11/11/20 13:50 Ur Specific [place] 1.013 (1.003-1.030) 11/11/20 13:50 Urine Protein 100 mg/dl mg/dL (Negative) 11/11/20 13:50 Urine Glucose (UA) Neg mg/dL (Negative) 11/11/20 13:50 Urine Ketones Neg mg/dL (Negative) 11/11/20 13:50 Urine Blood Mod (Negative) 11/11/20 13:50 Urine Nitrite Pos (Negative) 11/11/20 13:50 Urine Bilirubin Neg (Negative) 11/11/20 13:50 Urine Urobilinogen 2.0 mg/dL (<2.0) 11/11/20 13:50 Ur Leukocyte Esterase Lg (Negative) 11/11/20 13:50 Urine WBC (Auto) > 182.0 /HPF (0.0-6.0) H 11/11/20 13:50 Urine RBC (Auto) > 182.0 /HPF (0.0-6.0) 11/11/20 13:50 U Epithel Cells (Auto) 1.0 /HPF (0-13.0) 11/11/20 13:50 Urine Bacteria (Auto) 4+ /HPF (Negative) 11/11/20 13:50 Urine WBC Clumps 3+ /HPF 11/11/20 13:50 Calcium Oxalate Crystal Few 11/11/20 13:50 Urine Mucus Few /HPF 11/11/20 13:50 Vancomycin Trough 12.6 ug/mL (5.0-20.0) 10/21/20 13:54 Random Vancomycin 10.7 ug/mL (0-40.0) 10/16/20 13:09 Phenytoin 5.7 ug/mL (10.0-20.0) L 10/13/20 07:00 C. difficile Tox (PCR) Positive (Negative) 10/16/20 10:22 Coronavirus (PCR) Negative (Negative) 10/08/20 14:15 Blood Type O POSITIVE 10/02/20 12:50 Antibody Screen Negative 10/02/20 12:50 Crossmatch See Detail 10/02/20 12:50 - Diagnostic Impressions Diagnostic Impressions: Echocardiogram 12/19/20 13:42 Transthoracic Echocardiogram Indication: S/P Cardiac Arrest R/O Cardiomyopathy BP: 133/71 Conclusions *Global left ventricular systolic function is normal. *The estimated ejection fraction is 60-65%. *There is trace of mitral regurgitation. *The right 0heart chambers are both slightly dilated. *There is mild tricuspid regurgitation. *There is mild-moderate pulmonary hypertension. *The right ventricular systolic pressure is calculated at 44 mmHg. *The study quality is technically difficult. Findings Procedure Info: The study quality is technically difficult. The study is technically limited due to patient body habitus. The study was technically limited due to the patient's inability to lay in the left lateral decubitus position. Left Ventricle: The left ventricular chamber size is normal. There is no left ventricular hypertrophy. Global left ventricular systolic function is normal. The estimated ejection fraction is 60-65%. Left Atrium: The left atrial chamber size is normal. Right Ventricle: The right ventricle is slightly dilated. Right Atrium: The right atrium is mildly dilated. Aortic Valve: The aortic valve leaflets are mildly thickened. There is no evidence of aortic regurgitation. There is no evidence of aortic stenosis. Mitral Valve: The mitral valve leaflets are mildly thickened. There is trace of mitral regurgitation. There is no evidence of mitral stenosis. Tricuspid Valve: There is mild tricuspid regurgitation. The right ventricular systolic pressure is calculated at 44 mmHg. There is evidence of mild pulmonary hypertension. Pulmonic Valve: There is trace pulmonic regurgitation. Pericardium: There is no pericardial effusion. Aorta: There is no dilatation of the ascending aorta. There is no dilatation of the aortic root. Venous: The inferior vena cava is dilated. Measurements Chambers 2D Name Value Normal Range IVSd (2D) 1 cm (0.6 - 1.1) LVPWd (2D) 1.01 cm (0.6 - 1.1) LVIDd (2D) 4.58 cm (3.7 - 5.6) LVIDs (2D) 3.17 cm (2 - 3.8) LV FS (2D) 30.93 % - EF Teichholz (2D) 58.66 % - Ao root diameter (2D) 2.94 cm (2 - 3.7) Volumes/Mass Name Value Normal Range LA ESV SP 4CH (A/L) 72.82 ml - LA ESV SP 2CH (A/L) 66.86 ml - LA ESV BP (A/L) 74.49 ml - LA ESV SP 4CH (MOD) 71.03 ml - LA ESV SP 2CH (MOD) 64.3 ml - LV EDV SP 4CH (MOD) 98.82 ml - LV ESV SP 4CH (MOD) 24.8 ml - EF SP 4CH (MOD) 74.9 % - LV EDV SP 2CH (MOD) 86.1 ml - LV ESV SP 2CH (MOD) 36.93 ml - EF SP 2CH (MOD) 57.11 % - LV EDV BP 94.4 ml - LV ESV BP 32.66 ml - BP EF (MOD) 65.4 % - Diastolic/Systolic Function Name Value Normal Range MV E-wave Vmax 1.04 m/sec - MV deceleration time 160.46 msec - MV A-wave Vmax 0.92 m/sec - MV E:A ratio 1.14 ratio - Aortic Valve Name Value Normal Range AV Vmax 2.12 m/sec - AV VTI 22.37 cm - AV peak gradient 17.95 mmHg - AV mean gradient 7.29 mmHg - LVOT diameter 2.01 cm - LVOT Vmax 1.8 m/sec - LVOT VTI 27.17 cm - LVOT peak gradient 12.91 mmHg - LVOT mean gradient 6.83 mmHg - SV LVOT 86.42 ml - ANITA (continuity Vmax) 2.7 cm2 - ANITA (continuity VTI) 3.86 cm2 - Ascending Ao 3.18 cm - Tricuspid Valve Name Value Normal Range TV E-wave Vmax 0.88 m/sec - TR Vmax 3.01 m/sec - TR peak gradient 36.27 mmHg - RAP 8 mmHg - RVSP 44 mmHg - IVC diameter 2.65 cm (1.2 - 2.3) Pulmonic Valve/Qp:Qs Name Value Normal Range PV Vmax 1.22 m/sec - PV peak gradient 5.91 mmHg - RVOT Vmax 0.87 m/sec - RVOT VTI 13.32 cm - RVOT peak gradient 3 mmHg - PV acceleration time 110.37 msec - Hamlin/IV: Voiding Method External Female Catheter IV Catheter Type [Right Foot] INT / Saline Lock IV Catheter Type [Left Forearm Peripheral IV ] IV Catheter Type [Left Wrist] INT / Saline Lock IV Catheter Type [Right Hand] INT / Saline Lock IV Catheter Type [Right INT / Saline Lock Antecubital] IV Catheter Type [Right Upper Mid-line arm] IV Catheter Type [Left Triple Lumen Cath Internal Jugular] IV Catheter Type [Left Hand] Peripheral IV IV Catheter Type [Left Peripheral IV Antecubital] Active Medications - Current Medications Current Medications: Generic Name Dose Route Start Last Admin Trade Name Freq PRN Reason Stop Dose Admin Acetaminophen 650 mg 10/05/20 16:34 12/05/20 06:42 Acetaminophen 325 Mg/10.15 Ml Oral Liqd Unit Dose FEEDTUBE 650 mg Q6H PRN Administration Non Cardiac Pain or Temp>100.5 Albuterol 2.5 mg 11/05/20 13:03 11/06/20 13:04 Albuterol 2.5 Mg/3 Ml Nebu IH 2.5 mg Q4HRT PRN Administration Shortness Of Breath Lipase/Protease/Amylase 1 each 10/05/20 11:09 Lipase 10,500/Protease 25,000/Amylase 43,750 (Units) Dr Barakat FEEDTUBE PRN PRN For Clogged Feeding Tube Enoxaparin Sodium 40 mg 10/22/20 10:00 12/05/20 09:15 Enoxaparin 40 Mg/0.4 Ml Inj SUB-Q 40 mg DAILY ERINN Administration Protocol Famotidine 20 mg 10/07/20 10:00 12/05/20 22:18 Famotidine 20 Mg Tab PO 20 mg BID ERINN Administration Furosemide 40 mg 10/17/20 10:00 12/05/20 09:15 Furosemide 40 Mg Tab PO 40 mg QDAY ERINN Administration Hydralazine HCl 20 mg 10/07/20 11:49 10/17/20 07:20 Hydralazine 20 Mg/1 Ml Inj IV 20 mg Q6H PRN Administration SBP >170 Hydralazine HCl 50 mg 10/17/20 09:00 12/06/20 05:17 Hydralazine 25 Mg Tab PO 50 mg Q8HR ERINN Administration Labetalol HCl 300 mg 11/16/20 17:00 12/05/20 20:22 Labetalol 200 Mg Tab PO 300 mg TID ERINN Administration Simple Syrup 15 ml 10/05/20 11:09 Simple Syrup 15 Ml FEEDTUBE PRN PRN Hypoglycemia Simple Syrup 30 ml 12/21/20 11:09 Simple Syrup 15 Ml FEEDTUBE PRN PRN Hypoglycemia Sodium Bicarbonate 325 mg 10/05/20 11:09 11/24/20 11:51 Sodium Bicarbonate 325 Mg Tab FEEDTUBE 325 mg PRN PRN Administration For Clogged Feeding Tube Sodium Bicarbonate 1,300 mg 10/13/20 14:00 12/05/20 20:22 Sodium Bicarbonate 650 Mg Tab PO 1,300 mg TID ERINN Administration Nutrition/Malnutrition Assess - Dietary Evaluation Nutrition/Malnutrition Findings: Nutrition Notes Start: 10/04/20 11:13 Freq: Status: Active Protocol: Document 12/01/20 14:38 AL (Rec: 12/01/20 14:51 AL [id number]) Co-Sign 12/01/20 14:38 LP Nutrition Notes Initial or Follow up Reassessment Current Diagnosis Acute Kidney Injury, Respiratory Failure Other Pertinent Diagnosis C-Diff, Cardiac arrest, s/p c- section and supracervical hysterectomy Current Diet Jevity 1.2 at 60 ml/hr Labs/Tests Reviewed Pertinent Medications Lasix D10w at 75ml/hr Height 5 ft 8 in Weight 101.8 kg [place] Body Weight (kg) 63.63 BMI 34.1 Subjective/Other Information F/U for TF tolerance. Pt continues to tolerate Jevity 1 .2 at 60 mls/hr (goal rate). Percent of energy/protein needs met: 100%/96% Burn Absent Trauma Absent GI Symptoms None Food Allergy Yes Current % PO Negligible Minimum of two criteria Yes Interpretation of Weight Loss (severe) >2% in 1 week Fluid Accumulation Mild (non-severe) #2 Nutrition Diagnosis Malnutrition As Evidenced by Signs and Symptoms fluid accumulation and wt loss of 11% in 1 month #1 Nutrition Diagnosis Inadequate oral intake Diagnosis Progress(for reassessment Continues documentation) Is patient on ventilator? No Is Patient Ambulatory and/or Out of Bed No REE-([place]-confined to bed) 2133.648 Kcal/Kg value to use for calculation 16 Approximate Energy Requirements Using 1629 kcal/Kg Calculation Used for Recommendations Kcal/kg Additional Notes Protein needs are 66-83g (0.8- 1g/kg AdjBW 83kg) Fluid needs are 1ml/kcal Nutrition Intervention Change Diet Order: Continue Nutrition Support: Jevity 1.2 at 60ml/hr. Flush 100ml q4h. Kcal 1,728 Protein (gm) 80 Fluid (mL) 1,162 Goal #1 TF tolerance Goal #2 Meet at least 75% of energy and protein needs Anticipated Discharge Needs: Unable to determine at this time Follow-Up By: 12/08/20 Additional Comments FU for TF tolerance
[2020-12-06] MEDS: SODIUM BICARBONATE 650 MG TAB PO SCH ×3 (08:30→20:41)
[2020-12-06] MEDS: ENOXAPARIN 40 MG/0.4 ML INJ SUB-Q SCH (09:17)
[2020-12-06] MEDS: FAMOTIDINE 20 MG TAB PO SCH ×2 (09:17→22:03)
[2020-12-06] MEDS: FUROSEMIDE 40 MG TAB PO SCH (09:17)
[2020-12-07] MEDS: hydrALAZINE 25 MG TAB PO SCH ×3 (06:51→21:09)
[2020-12-07] MEDS: SODIUM BICARBONATE 650 MG TAB PO SCH ×3 (08:31→20:26)
--- NOTE | 2020-12-07 09:00 | Progress Note ---
Assessment and Plan Assessment and plan: -- Sepsis with presumed Pneumonia Teated with iv abx, follow Cx -Completed cefepime course 5 days on 10/09/2020 -Check MRSA culture -Start vancomycin p.o. empirically for C. difficile total 10 days, given diarrhea and worsening leukocytosis, --Acute respiratory failure with hypoxia Patient intubated Vent management per CC --DIC (disseminated intravascular coagulation) vs HELLP syndrome Has anemia,thrombocytopenia and elevated liver enzymes Patient received multiple units of RBCs, FFP's, cryo Hematology/oncology recommendations appreciated Continue to trend fibrinogen and INR Critical care on board --Possible Eclampsia/HELLP Syndrome Patient presented with seizure-->hypoxia-->urgent C section-->hysterectomy for severe bleeding/DIC developed severe anemia-->received RBC, plt, FFP, cryo was on max pressors-->now off pressors still on vent, on sedation Hematology following --s/p Cardiac arrest x2 on admission and on 10/07 ACLS protocol followed by revival Echo showed preserved Ef --Shock s/p pressor support Likely hypovolemic. on empirical antibiotics for possible sepsis. Continue to monitor blood pressure closely Trend H&H and transfuse as needed --Lactic acidosis As a result of poor organ perfusion and possible sepsis Continue IV hydration. Lactic acid is trending down Nephrology on board --ADOLPH As a result of hypoperfusion and shock Continue IV hydration Cr stable, follow BMP --DVT prophylaxis Patient presented with DIC No anticoagulants The high probability of a clinically significant, sudden or life threatening deterioration of the [pulmonary] system(s) required my full and direct attention, intervention and personal management. The aggregate critical care t cristhian was [35] minutes. This time is in addition to time spent performing reported procedures but includes the following: [x] Data Review and interpretation [x] Patient assessment and monitoring of vital signs [x] Documentation [x] Medication orders and management brief History 30 year old -[place] female CHE 10/25/20 at 36w5d who presents with seizures in triage on 10/02/20. Pt was not able to provide history but per pt's , she presented to the hospital to return a 24 hour urine specimen for analysis. She then suddenly reported that she did not feel good. She was taken to labor and delivery and shortly after arrival, she began seizing. During this time, a code met was called because the patient became hypoxic. She was then noted to be without a pulse. Chest compressions were started immediately, and the patient was emergently taken to the operating room for delivery of the fetus. Off note, This patient has had care at [facility] with comanagement by [facility] since 11 wks complicated by ADHD, morbid obesity, gen eralized anxiety disorder, panic attacks, chronic narcotic use, fibromyalgia, GERD, Irritable Bowel Syndrome, Migraines, h/o endometrial ablation and ovarian vein embolization, genital herpes, insomnia, LGA fetus, nausea and vomiting, polyhydramnios, quad screen positive for Down's Syndrome, and previous x 3. She is GBS negative. 11:30: Pt brought to L&D triage for evaluation of possible labor. Pt accompanied by her spouse. Pt spouse poor historian; unable to obtain history- allergies at this time. Pt taken from registration to triage area via WC. Pt unresponsive, actively seizing with snorous respirations. rubber stamp assembler, Kassy, called and requesting assistance. 11:35: Multiple staff at bedside. Pt 02 sat 67% on nonrebreather, unable to read BP at this time. Yifan Theodore CRNA, at bedside for intubation and assistance with IV insertion. INT attempt by multiple RNs unsuccessful at this time. 11:42: Pt being bagged by KORIN, 02% 79%. No pulse palpated, compressions started at this time; bharati young called and Dr. Newberry preparing OR for emergent c/s. 11:44: Continued compressions on stretcher while transporting pt to OR 1. Pt being bagged with jaw thrust manuever in place by KORIN Stringer student. 11:45: Arrival to OR 1. Dr. Newberry and Dr. Portillo present for emergent c/s. Code team arrived for continued care. patient revived and c/s done Patient has been bleeding from C/s site followed by supracervical hysterectomy for severe bleeding Patient transfused multiple units of PRBC, Patient in DIC. Transferred to the ICU 10/03. Patient seen and examined at bedside this morning. Patient is nonresponsive and mechanically ventilated. On pressors. Labs reviewed-has constanza kocytosis, anemia, thrombocytopenia, ADOLPH and lactic acidosis. Started on IV antibiotics to cover possible sepsis secondary to DIC. Hematology oncology recommendations appreciated-needs additional cryoprecipitate and FFP. Monitor D-dimer, fibrinogen and frequent labs. Nephrology consulted for lactic acidosis and ADOLPH. 10/04. Remains mechanically ventilated. Kevin antibiotics. Labs shows improved acidosis - lactic acid 3.5. Hb drop noted. Getting transfused 2 units PRBCs. Platelet count is ~40k. Continue to monitor labs closely. Critical care team on board. 10/05; xray reviewed, concerning for multifocal infilrate, likely underlying Pneumonia, will add ID consult to assist with management of this critically ill patient, start tube feed, closely monitor renal system 10/06: Resumed care, remains on mechanical ventilation. No active bleeding, H&H stable. Continue to monitor CBC and BMP. Continue IV antibiotic for underlying pneumonia. Follow critical care and ID recommendation. 10/07: Remains on mechanical ventilation. No active bleeding, H&H stable. Critical care following, wean off ventilation as tolerated. 10/08: Patient had another cardiac arrest last night. Remains on mechanical ventilation, update family. Continue supportive care -poor prognosis 10/09: Called patient mother and discussed about patient care and management. Answered all question to best of my knowledge and family satisfaction. Patient remains on mechanical ventilation, cardiac arrest x2 so far. Critically sick, poor prognosis 10/10: remains on mechanical ventilation. h/h stable, no active bleeding. monitor CBC/BMP 10/11: WBC trended up with diarrhea, started on vancomycin po. remains on MV, off pressor, tolerating TF 10/12: remains on MV, off pressor, tolerating TF. called family for update but unable to reach, could not leave message as it was full. cont supportive care, wean off vent as tolerated. 10/13/2020; patient is on mechanical ventilation, tolerating tube feeding. Edis damian has labored breathing. Neuro was consulted and recommend MRI. Patient is on Precedex. Rectal tube in place. 10/14/2020; patient is on mechanical ventilation, Precedex. Patient had fever and blood culture ordered. Patient is on IV vancomycin per ID recommendation. Neuro consulted and recommend MRI. Continue to monitor. Prognosis is guarded. 10/15/2020; patient is on mechanical ventilation, Precedex. Patient had fever and blood culture ordered. Patient is on IV vancomycin per ID recommendation. Neuro consulted and recommend MRI. Continue to monitor. Prognosis is guarded. 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 12/06/20; anoxic brain injury. Awaiting placement. 12/05/2020; anoxic brain injury, awaiting placement. History Interval history: Patient was seen and evaluated this morning Patient is on 5 L of oxygen via trach Patient is does not follow commands Hospitalist Physical - Physical exam Narrative exam: vITAL SIGNS: Reviewed. GENERAL: On trach and PEG HEAD: No signs of head trauma. EYES: Pupils are equal. MOUTH: OT in place NECK: No adenopathy, no JVD. CHEST: Rales posteriorly CARDIAC: normal S1 and S2, without murmurs, gallops, or rubs. ABDOMEN: Soft, non tender and non distended. surgical wound in tact, No rebound or guarding, and no masses palpated. Bowel Sounds normal. MUSCULOSKELETAL: No edema NEUROLOGIC EXAM: Does not follow command SKIN: No obvious lesions - Constitutional Vitals: Temp Pulse Resp BP Pulse Ox 99.3 F 99 H 19 130/79 99 12/07/20 08:00 12/07/20 08:31 12/07/20 08:00 12/07/20 08:31 12/07/20 08:00 General appearance: Present: no acute distress, well-nourished HEART Score - HEART Score Age: < 45 Risk factors: 1-2 risk factors - Critical Actions Critical Actions: >7 pts:50-65% risk of adverse cardiac event. Early invasive measures Results - Labs CBC & Chem 7: 11/26/20 04:37 11/26/20 04:37 Labs: Laboratory Last Values WBC 9.6 K/mm3 (4.5-11.0) 11/26/20 04:37 RBC 4.53 M/mm3 (3.65-5.03) 11/26/20 04:37 Hgb 12.5 gm/dl (10.1-14.3) 11/26/20 04:37 Hgb Comment See scanned result 10/04/20 Unknown Hct 37.1 % (30.3-42.9) 11/26/20 04:37 MCV 82 fl (79-97) 11/26/20 04:37 MCH 28 pg (28-32) 11/26/20 04:37 MCHC 34 % (30-34) 11/26/20 04:37 RDW 15.4 % (13.2-15.2) H 11/26/20 04:37 Plt Count 290 K/mm3 (140-440) 11/26/20 04:37 Lymph % (Auto) 18.9 % (13.4-35.0) 11/26/20 04:37 [place] % (Auto) 10.1 % (0.0-7.3) H 11/26/20 04:37 Eos % (Auto) 2.2 % (0.0-4.3) 11/26/20 04:37 Baso % (Auto) 0.4 % (0.0-1.8) 11/26/20 04:37 Lymph # (Auto) 1.8 K/mm3 (1.2-5.4) 11/26/20 04:37 [place] # (Auto) 1.0 K/mm3 (0.0-0.8) H 11/26/20 04:37 Eos # (Auto) 0.2 K/mm3 (0.0-0.4) 11/26/20 04:37 Baso # (Auto) 0.0 K/mm3 (0.0-0.1) 11/26/20 04:37 Add Manual Diff Complete 10/29/20 07:56 Total Counted 100 10/29/20 07:56 Seg Neutrophils % 68.4 % (40.0-70.0) 11/26/20 04:37 Seg Neuts % (Manual) 80.0 % (40.0-70.0) H 10/29/20 07:56 Band Neutrophils % 2.0 % 10/15/20 05:50 Lymphocytes % (Manual) 15.0 % (13.4-35.0) 10/29/20 07:56 Reactive Lymphs % (Man) 1.0 % 10/02/20 12:18 Monocytes % (Manual) 4.0 % (0.0-7.3) 10/29/20 07:56 Eosinophils % (Manual) 1.0 % (0.0-4.3) 10/29/20 07:56 Myelocytes % 2.0 % 10/02/20 13:05 Metamyelocytes % 1.0 % 10/14/20 04:00 Nucleated RBC % Not Reportable 10/29/20 07:56 Seg Neutrophils # 6.6 K/mm3 (1.8-7.7) 11/26/20 04:37 Seg Neutrophils # Man 10.9 K/mm3 (1.8-7.7) H 10/29/20 07:56 Band Neutrophils # 0.0 K/mm3 10/29/20 07:56 Lymphocytes # (Manual) 2.0 K/mm3 (1.2-5.4) 10/29/20 07:56 Abs React Lymphs (Man) 0.0 K/mm3 10/29/20 07:56 Monocytes # (Manual) 0.5 K/mm3 (0.0-0.8) 10/29/20 07:56 Eosinophils # (Manual) 0.1 K/mm3 (0.0-0.4) 10/29/20 07:56 Basophils # (Manual) 0.0 K/mm3 (0.0-0.1) 10/29/20 07:56 Metamyelocytes # 0.0 K/mm3 10/29/20 07:56 Myelocytes # 0.0 K/mm3 10/29/20 07:56 Promyelocytes # 0.0 K/mm3 10/29/20 07:56 Blast Cells # 0.0 K/mm3 10/29/20 07:56 WBC Morphology Not Reportable 10/29/20 07:56 Hypersegmented Neuts Not Reportable 10/29/20 07:56 Hyposegmented Neuts Not Reportable 10/29/20 07:56 Hypogranular Neuts Not Reportable 10/29/20 07:56 Smudge Cells Not Reportable 10/29/20 07:56 Toxic Granulation Not Reportable 10/29/20 07:56 Toxic Vacuolation Not Reportable 10/29/20 07:56 Dohle Bodies Not Reportable 10/29/20 07:56 Pelger-Huet Anomaly Not Reportable 10/29/20 07:56 Ester Rods Not Reportable 10/29/20 07:56 Platelet Estimate Consistent w auto 10/29/20 07:56 Clumped Platelets Not Reportable 10/29/20 07:56 Plt Clumps, EDTA Not Reportable 10/29/20 07:56 Large Platelets Few 10/29/20 07:56 Giant Platelets Not Reportable 10/29/20 07:56 Platelet Satelliting Not Reportable 10/29/20 07:56 Plt Morphology Comment Not Reportable 10/29/20 07:56 RBC Morphology Not Reportable 10/29/20 07:56 Dimorphic RBCs Not Reportable 10/29/20 07:56 Polychromasia Rare 10/29/20 07:56 Hypochromasia Few 10/29/20 07:56 Poikilocytosis Not Reportable 10/29/20 07:56 Anisocytosis Not Reportable 10/29/20 07:56 Microcytosis Not Reportable 10/29/20 07:56 Macrocytosis Not Reportable 10/29/20 07:56 Spherocytes Not Reportable 10/29/20 07:56 Pappenheimer Bodies Not Reportable 10/29/20 07:56 Sickle Cells Not Reportable 10/29/20 07:56 Target Cells Few 10/29/20 07:56 Tear Drop Cells Not Reportable 10/29/20 07:56 Ovalocytes Not Reportable 10/29/20 07:56 Stomatocytes Few 10/14/20 04:00 Helmet Cells Not Reportable 10/29/20 07:56 [place] Bodies Not Reportable 10/29/20 07:56 [place] Rings Not Reportable 10/29/20 07:56 Antoine Cells Not Reportable 10/29/20 07:56 Bite Cells Not Reportable 10/29/20 07:56 Crenated Cell Not Reportable 10/29/20 07:56 Elliptocytes Not Reportable 10/29/20 07:56 Acanthocytes (Spur) Not Reportable 10/29/20 07:56 Rouleaux Not Reportable 10/29/20 07:56 Hemoglobin C Crystals Not Reportable 10/29/20 07:56 Schistocytes Not Reportable 10/29/20 07:56 Malaria parasites Not Reportable 10/29/20 07:56 Sickle Cell Solubility See scanned result 10/04/20 Unknown Hemoglobin A See scanned result 10/04/20 Unknown Hemoglobin A2 See scanned result 10/04/20 Unknown Hemoglobin A2 Prime See scanned result 10/04/20 Unknown Hemoglobin C See scanned result 10/04/20 Unknown Hemoglobin D See scanned result 10/04/20 Unknown Hemoglobin E See scanned result 10/04/20 Unknown Hgb F Diffential Stain See scanned result 10/04/20 Unknown Hemoglobin F Quant See scanned result 10/04/20 Unknown Hemoglobin G See scanned result 10/04/20 Unknown Hemoglobin S See scanned result 10/04/20 Unknown Hemoglobin [place] See scanned result 10/04/20 Unknown Hemoglobin [place] See scanned result 10/04/20 Unknown Hemoglobin Analilia See scanned result 10/04/20 Unknown Variant Hemoglobin See scanned result 10/04/20 Unknown Abnorm Hgb IEF Confirm See scanned result 10/04/20 Unknown Hemoglobin Interpret See scanned result 10/04/20 Unknown Hemoglobinopathy Note See scanned result 10/04/20 Unknown Sharad Bodies Not Reportable 10/29/20 07:56 Hem Pathologist Commnt No 10/29/20 07:56 PT 13.6 Sec. (12.2-14.9) 10/21/20 13:54 INR 1.06 (0.87-1.13) 10/21/20 13:54 APTT 31.6 Sec. (24.2-36.6) 10/03/20 00:40 Fibrinogen 336 mg/dl (211-480) 10/04/20 10:00 D-Dimer 1974.47 ng/mlDDU (0-234) H 11/11/20 13:50 ABG pH 7.459 pH Units (7.350-7.450) H 10/26/20 10:30 POC ABG pCO2 20.7 mmHg (32.0-48.0) L 10/13/20 07:18 ABG pCO2 32.4 mm Hg 10/26/20 10:30 POC ABG pO2 137.9 mmHg (83-108) H 10/13/20 07:18 ABG pO2 112.2 mm Hg (80.0-90.0) H 10/26/20 10:30 POC ABG HCO3 14.8 10/13/20 07:18 ABG HCO3 22.5 mmol/L (20.0-26.0) 10/26/20 10:30 ABG O2 Saturation 98.2 % (95.0-99.0) 10/26/20 10:30 ABG O2 Content 18.5 (0.0-44) 10/26/20 10:30 POC ABG Base Excess -6.9 10/13/20 07:18 ABG Base Excess -0.6 mmol/L (-2.0-3.0) 10/26/20 10:30 ABG Hemoglobin 13.5 gm/dl (12.0-16.0) 10/26/20 10:30 ABG Oxyhemoglobin 98.3 (94-98) H 10/13/20 07:18 ABG Carboxyhemoglobin 1.3 % (0.0-5.0) 10/26/20 10:30 ABG Methemoglobin 0.5 % (0.0-1.5) 10/26/20 10:30 ABG Sodium 135.9 mmol/L (136.0-145.0) L 10/13/20 07:18 ABG Potassium 3.7 mmol/L (3.40-4.50) 10/13/20 07:18 ABG Chloride 111.0 mmol/L (98-107) H 10/13/20 07:18 ABG Glucose 109 mg/dL (65-95) H 10/13/20 07:18 VBG pH 6.949 (7.320-7.420) L* 10/02/20 Unknown Oxyhemoglobin 96.5 % (95.0-99.0) 10/26/20 10:30 Carboxyhemoglobin 0.3 (0.5-1.5) L 10/13/20 07:18 FiO2 25 % 10/26/20 10:30 Sodium 139 mmol/L (137-145) 11/26/20 04:37 Potassium 3.6 mmol/L (3.6-5.0) 11/26/20 04:37 Chloride 101.0 mmol/L (98-107) 11/26/20 04:37 Carbon Dioxide 26 mmol/L (22-30) 11/26/20 04:37 Anion Gap 16 mmol/L 11/26/20 04:37 BUN 9 mg/dL (7-17) 11/26/20 04:37 Creatinine 0.6 mg/dL (0.6-1.2) 11/26/20 04:37 Estimated GFR > 60 ml/min 11/26/20 04:37 BUN/Creatinine Ratio 15 % 11/26/20 04:37 Glucose 109 mg/dL (65-100) H 11/26/20 04:37 POC Glucose 100 mg/dL (70-105) 12/06/20 23:39 Random Insulin 43.2 uIU/mL (<=19.6) H 11/02/20 19:19 Proinsulin See scanned result 11/02/20 19:19 C-Peptide 6.23 ng/mL (0.80-3.85) H 11/02/20 19:19 Lactic Acid 1.90 mmol/L (0.7-2.0) 10/04/20 22:00 Uric Acid 7.5 mg/dL (3.5-7.6) 10/02/20 13:05 Calcium 9.5 mg/dL (8.4-10.2) 11/26/20 04:37 Ionized Calcium 4.4 mg/dL (4.8-5.6) L 10/07/20 21:00 Phosphorus 4.60 mg/dL (2.5-4.5) H 11/13/20 10:05 Magnesium 2.10 mg/dL (1.7-2.3) 11/13/20 10:05 Total Bilirubin 0.50 mg/dL (0.1-1.2) 11/26/20 04:37 AST 51 units/L (5-40) H 11/26/20 04:37 ALT 42 units/L (7-56) 11/26/20 04:37 Alkaline Phosphatase 117 units/L (35-129) 11/26/20 04:37 Lactate Dehydrogenase 769 units/L (91-180) H 10/02/20 13:05 C-Reactive Protein 0.70 mg/dL (0.00-1.30) 11/11/20 13:50 NT-Pro-B Natriuret Pep 2788 pg/mL (0-450) H 10/04/20 10:00 Total Protein 7.8 g/dL (6.3-8.2) 11/26/20 04:37 Albumin 3.9 g/dL (3.9-5) 11/26/20 04:37 Albumin/Globulin Ratio 1.0 % 11/26/20 04:37 Procalcitonin < 0.05 ng/mL (<0.15) 11/11/20 13:50 Arterial Blood Glucose 109 mg/dL (65-95) H 10/13/20 07:18 Arterial Blood Ionized Calcium 4.6 mg/dL (4.6-5.3) 10/13/20 07:18 Urine Color Yellow (Yellow) 11/11/20 13:50 Urine Turbidity Cloudy (Clear) 11/11/20 13:50 Urine pH 6.0 (5.0-7.0) 11/11/20 13:50 Ur Specific [place] 1.013 (1.003-1.030) 11/11/20 13:50 Urine Protein 100 mg/dl mg/dL (Negative) 11/11/20 13:50 Urine Glucose (UA) Neg mg/dL (Negative) 11/11/20 13:50 Urine Ketones Neg mg/dL (Negative) 11/11/20 13:50 Urine Blood Mod (Negative) 11/11/20 13:50 Urine Nitrite Pos (Negative) 11/11/20 13:50 Urine Bilirubin Neg (Negative) 11/11/20 13:50 Urine Urobilinogen 2.0 mg/dL (<2.0) 11/11/20 13:50 Ur Leukocyte Esterase Lg (Negative) 11/11/20 13:50 Urine WBC (Auto) > 182.0 /HPF (0.0-6.0) H 11/11/20 13:50 Urine RBC (Auto) > 182.0 /HPF (0.0-6.0) 11/11/20 13:50 U Epithel Cells (Auto) 1.0 /HPF (0-13.0) 11/11/20 13:50 Urine Bacteria (Auto) 4+ /HPF (Negative) 11/11/20 13:50 Urine WBC Clumps 3+ /HPF 11/11/20 13:50 Calcium Oxalate Crystal Few 11/11/20 13:50 Urine Mucus Few /HPF 11/11/20 13:50 Vancomycin Trough 12.6 ug/mL (5.0-20.0) 10/21/20 13:54 Random Vancomycin 10.7 ug/mL (0-40.0) 10/16/20 13:09 Phenytoin 5.7 ug/mL (10.0-20.0) L 10/13/20 07:00 C. difficile Tox (PCR) Positive (Negative) 10/16/20 10:22 Coronavirus (PCR) Negative (Negative) 10/08/20 14:15 Blood Type O POSITIVE 10/02/20 12:50 Antibody Screen Negative 10/02/20 12:50 Crossmatch See Detail 10/02/20 12:50 - Diagnostic Impressions Diagnostic Impressions: Echocardiogram 10/03/20 13:42 Transthoracic Echocardiogram Indication: S/P Cardiac Arrest R/O Cardiomyopathy BP: 133/71 Conclusions *Global left ventricular systolic function is normal. *The estimated ejection fraction is 60-65%. *There is trace of mitral regurgitation. *The right 0heart chambers are both slightly dilated. *There is mild tricuspid regurgitation. *There is mild-moderate pulmonary hypertension. *The right ventricular systolic pressure is calculated at 44 mmHg. *The study quality is technically difficult. Findings Procedure Info: The study quality is technically difficult. The study is technically limited due to patient body habitus. The study was technically limited due to the patient's inability to lay in the left lateral decubitus position. Left Ventricle: The left ventricular chamber size is normal. There is no left ventricular hypertrophy. Global left ventricular systolic function is normal. The estimated ejection fraction is 60-65%. Left Atrium: The left atrial chamber size is normal. Right Ventricle: The right ventricle is slightly dilated. Right Atrium: The right atrium is mildly dilated. Aortic Valve: The aortic valve leaflets are mildly thickened. There is no evidence of aortic regurgitation. There is no evidence of aortic stenosis. Mitral Valve: The mitral valve leaflets are mildly thickened. There is trace of mitral regurgitation. There is no evidence of mitral stenosis. Tricuspid Valve: There is mild tricuspid regurgitation. The right ventricular systolic pressure is calculated at 44 mmHg. There is evidence of mild pulmonary hypertension. Pulmonic Valve: There is trace pulmonic regurgitation. Pericardium: There is no pericardial effusion. Aorta: There is no dilatation of the ascending aorta. There is no dilatation of the aortic root. Venous: The inferior vena cava is dilated. Measurements Chambers 2D Name Value Normal Range IVSd (2D) 1 cm (0.6 - 1.1) LVPWd (2D) 1.01 cm (0.6 - 1.1) LVIDd (2D) 4.58 cm (3.7 - 5.6) LVIDs (2D) 3.17 cm (2 - 3.8) LV FS (2D) 30.93 % - EF Teichholz (2D) 58.66 % - Ao root diameter (2D) 2.94 cm (2 - 3.7) Volumes/Mass Name Value Normal Range LA ESV SP 4CH (A/L) 72.82 ml - LA ESV SP 2CH (A/L) 66.86 ml - LA ESV BP (A/L) 74.49 ml - LA ESV SP 4CH (MOD) 71.03 ml - LA ESV SP 2CH (MOD) 64.3 ml - LV EDV SP 4CH (MOD) 98.82 ml - LV ESV SP 4CH (MOD) 24.8 ml - EF SP 4CH (MOD) 74.9 % - LV EDV SP 2CH (MOD) 86.1 ml - LV ESV SP 2CH (MOD) 36.93 ml - EF SP 2CH (MOD) 57.11 % - LV EDV BP 94.4 ml - LV ESV BP 32.66 ml - BP EF (MOD) 65.4 % - Diastolic/Systolic Function Name Value Normal Range MV E-wave Vmax 1.04 m/sec - MV deceleration time 160.46 msec - MV A-wave Vmax 0.92 m/sec - MV E:A ratio 1.14 ratio - Aortic Valve Name Value Normal Range AV Vmax 2.12 m/sec - AV VTI 22.37 cm - AV peak gradient 17.95 mmHg - AV mean gradient 7.29 mmHg - LVOT diameter 2.01 cm - LVOT Vmax 1.8 m/sec - LVOT VTI 27.17 cm - LVOT peak gradient 12.91 mmHg - LVOT mean gradient 6.83 mmHg - SV LVOT 86.42 ml - ANITA (continuity Vmax) 2.7 cm2 - ANITA (continuity VTI) 3.86 cm2 - Ascending Ao 3.18 cm - Tricuspid Valve Name Value Normal Range TV E-wave Vmax 0.88 m/sec - TR Vmax 3.01 m/sec - TR peak gradient 36.27 mmHg - RAP 8 mmHg - RVSP 44 mmHg - IVC diameter 2.65 cm (1.2 - 2.3) Pulmonic Valve/Qp:Qs Name Value Normal Range PV Vmax 1.22 m/sec - PV peak gradient 5.91 mmHg - RVOT Vmax 0.87 m/sec - RVOT VTI 13.32 cm - RVOT peak gradient 3 mmHg - PV acceleration time 110.37 msec - [place]/IV: Voiding Method External Female Catheter IV Catheter Type [Right Foot] INT / Saline Lock IV Catheter Type [Left Forearm Peripheral IV ] IV Catheter Type [Left Wrist] INT / Saline Lock IV Catheter Type [Right Hand] INT / Saline Lock IV Catheter Type [Right INT / Saline Lock Antecubital] IV Catheter Type [Right Upper Mid-line arm] IV Catheter Type [Left Triple Lumen Cath Internal Jugular] IV Catheter Type [Left Hand] Peripheral IV IV Catheter Type [Left Peripheral IV Antecubital] Active Medications - Current Medications Current Medications: Generic Name Dose Route Start Last Admin Trade Name Freq PRN Reason Stop Dose Admin Acetaminophen 650 mg 10/05/20 16:34 12/05/20 06:42 Acetaminophen 325 Mg/10.15 Ml Oral Liqd Unit Dose FEEDTUBE 650 mg Q6H PRN Administration Non Cardiac Pain or Temp>100.5 Albuterol 2.5 mg 11/05/20 13:03 11/06/20 13:04 Albuterol 2.5 Mg/3 Ml Nebu IH 2.5 mg Q4HRT PRN Administration Shortness Of Breath Lipase/Protease/Amylase 1 each 10/05/20 11:09 Lipase 10,500/Protease 25,000/Amylase 43,750 (Units) Dr Barakat FEEDTUBE PRN PRN For Clogged Feeding Tube Enoxaparin Sodium 40 mg 10/22/20 10:00 12/06/20 09:17 Enoxaparin 40 Mg/0.4 Ml Inj SUB-Q 40 mg DAILY ERINN Administration Protocol Famotidine 20 mg 10/07/20 10:00 12/06/20 22:03 Famotidine 20 Mg Tab PO 20 mg BID ERINN Administration Furosemide 40 mg 10/17/20 10:00 12/06/20 09:17 Furosemide 40 Mg Tab PO 40 mg QDAY ERINN Administration Hydralazine HCl 20 mg 10/07/20 11:49 10/17/20 07:20 Hydralazine 20 Mg/1 Ml Inj IV 20 mg Q6H PRN Administration SBP >170 Hydralazine HCl 50 mg 10/17/20 09:00 12/07/20 06:51 Hydralazine 25 Mg Tab PO 50 mg Q8HR ERINN Administration Labetalol HCl 300 mg 11/16/20 17:00 12/07/20 08:31 Labetalol 200 Mg Tab PO 300 mg TID ERINN Administration Simple Syrup 15 ml 10/05/20 11:09 Simple Syrup 15 Ml FEEDTUBE PRN PRN Hypoglycemia Simple Syrup 30 ml 10/05/20 11:09 Simple Syrup 15 Ml FEEDTUBE PRN PRN Hypoglycemia Sodium Bicarbonate 325 mg 10/05/20 11:09 11/24/20 11:51 Sodium Bicarbonate 325 Mg Tab FEEDTUBE 325 mg PRN PRN Administration For Clogged Feeding Tube Sodium Bicarbonate 1,300 mg 10/13/20 14:00 12/07/20 08:31 Sodium Bicarbonate 650 Mg Tab PO 1,300 mg TID ERINN Administration Nutrition/Malnutrition Assess - Dietary Evaluation Nutrition/Malnutrition Findings: Nutrition Notes Start: 10/04/20 11:13 Freq: Status: Active Protocol: Document 12/01/20 14:38 AL (Rec: 12/01/20 14:51 AL [id number]) Co-Sign 12/01/20 14:38 LP Nutrition Notes Initial or Follow up Reassessment Current Diagnosis Acute Kidney Injury, Respiratory Failure Other Pertinent Diagnosis C-Diff, Cardiac arrest, s/p c- section and supracervical hysterectomy Current Diet Jevity 1.2 at 60 ml/hr Labs/Tests Reviewed Pertinent Medications Lasix D10w at 75ml/hr Height 5 ft 8 in Weight 101.8 kg [place] Body Weight (kg) 63.63 BMI 34.1 Subjective/Other Information F/U for TF tolerance. Pt continues to tolerate Jevity 1 .2 at 60 mls/hr (goal rate). Percent of energy/protein needs met: 100%/96% Burn Absent Trauma Absent GI Symptoms None Food Allergy Yes Current % PO Negligible Minimum of two criteria Yes Interpretation of Weight Loss (severe) >2% in 1 week Fluid Accumulation Mild (non-severe) #2 Nutrition Diagnosis Malnutrition As Evidenced by Signs and Symptoms fluid accumulation and wt loss of 11% in 1 month #1 Nutrition Diagnosis Inadequate oral intake Diagnosis Progress(for reassessment Continues documentation) Is patient on ventilator? No Is Patient Ambulatory and/or Out of Bed No REE-([facility]-confined to bed) 2133.648 Kcal/Kg value to use for calculation 16 Approximate Energy Requirements Using 1629 kcal/Kg Calculation Used for Recommendations Kcal/kg Additional Notes Protein needs are 66-83g (0.8- 1g/kg AdjBW 83kg) Fluid needs are 1ml/kcal Nutrition Intervention Change Diet Order: Continue Nutrition Support: Jevity 1.2 at 60ml/hr. Flush 100ml q4h. Kcal 1,728 Protein (gm) 80 Fluid (mL) 1,162 Goal #1 TF tolerance Goal #2 Meet at least 75% of energy and protein needs Anticipated Discharge Needs: Unable to determine at this time Follow-Up By: 12/08/20 Additional Comments FU for TF tolerance
[2020-12-07] MEDS: FUROSEMIDE 40 MG TAB PO SCH (09:31)
[2020-12-07] MEDS: FAMOTIDINE 20 MG TAB PO SCH ×2 (09:31→21:08)
[2020-12-07] MEDS: ENOXAPARIN 40 MG/0.4 ML INJ SUB-Q SCH (09:31)
[2020-12-07] MEDS: ACETAMINOPHEN 325 MG/10.15 ML ORAL LIQD UNIT DOSE FEEDTUBE PRN (20:25)
[2020-12-08] MEDS: hydrALAZINE 25 MG TAB PO SCH ×3 (06:22→23:13)
[2020-12-08] MEDS: ACETAMINOPHEN 325 MG/10.15 ML ORAL LIQD UNIT DOSE FEEDTUBE PRN (06:22)
[2020-12-08] MEDS: SODIUM BICARBONATE 650 MG TAB PO SCH ×3 (08:47→19:58)
[2020-12-08] MEDS: FAMOTIDINE 20 MG TAB PO SCH ×2 (09:06→23:12)
[2020-12-08] MEDS: ENOXAPARIN 40 MG/0.4 ML INJ SUB-Q SCH (09:06)
[2020-12-08] MEDS: FUROSEMIDE 40 MG TAB PO SCH (09:06)
--- NOTE | 2020-12-08 09:55 | Progress Note ---
Assessment and Plan Assessment and plan: -- Sepsis with presumed Pneumonia Teated with iv abx, follow Cx -Completed cefepime course 5 days on 10/09/2020 -Check MRSA culture -Start vancomycin p.o. empirically for C. difficile total 10 days, given diarrhea and worsening leukocytosis, --Acute respiratory failure with hypoxia Patient intubated Vent management per CC --DIC (disseminated intravascular coagulation) vs HELLP syndrome Has anemia,thrombocytopenia and elevated liver enzymes Patient received multiple units of RBCs, FFP's, cryo Hematology/oncology recommendations appreciated Continue to trend fibrinogen and INR Critical care on board --Possible Eclampsia/HELLP Syndrome Patient presented with seizure-->hypoxia-->urgent C section-->hysterectomy for severe bleeding/DIC developed severe anemia-->received RBC, plt, FFP, cryo was on max pressors-->now off pressors still on vent, on sedation Hematology following --s/p Cardiac arrest x2 on admission and on 10/07 ACLS protocol followed by revival Echo showed preserved Ef --Shock s/p pressor support Likely hypovolemic. on empirical antibiotics for possible sepsis. Continue to monitor blood pressure closely Trend H&H and transfuse as needed --Lactic acidosis As a result of poor organ perfusion and possible sepsis Continue IV hydration. Lactic acid is trending down Nephrology on board --ADOLPH As a result of hypoperfusion and shock Continue IV hydration Cr stable, follow BMP --DVT prophylaxis Patient presented with DIC No anticoagulants The high probability of a clinically significant, sudden or life threatening deterioration of the [pulmonary] system(s) required my full and direct attention, intervention and personal management. The aggregate critical care t cristhian was [35] minutes. This time is in addition to time spent performing reported procedures but includes the following: [x] Data Review and interpretation [x] Patient assessment and monitoring of vital signs [x] Documentation [x] Medication orders and management brief History 30 year old -Northern Irish female CHE 10/25/20 at 36w5d who presents with seizures in triage on 10/02/20. Pt was not able to provide history but per pt's , she presented to the hospital to return a 24 hour urine specimen for analysis. She then suddenly reported that she did not feel good. She was taken to labor and delivery and shortly after arrival, she began seizing. During this time, a code met was called because the patient became hypoxic. She was then noted to be without a pulse. Chest compressions were started immediately, and the patient was emergently taken to the operating room for delivery of the fetus. Off note, This patient has had care at [facility] with comanagement by [facility] since 11 wks complicated by ADHD, morbid obesity, gen eralized anxiety disorder, panic attacks, chronic narcotic use, fibromyalgia, GERD, Irritable Bowel Syndrome, Migraines, h/o endometrial ablation and ovarian vein embolization, genital herpes, insomnia, LGA fetus, nausea and vomiting, polyhydramnios, quad screen positive for Down's Syndrome, and previous x 3. She is GBS negative. 11:30: Pt brought to L&D triage for evaluation of possible labor. Pt accompanied by her spouse. Pt spouse poor historian; unable to obtain history- allergies at this time. Pt taken from registration to triage area via WC. Pt unresponsive, actively seizing with snorous respirations. continuous drier operator, Kassy, called and requesting assistance. 11:35: Multiple staff at bedside. Pt 02 sat 67% on nonrebreather, unable to read BP at this time. Yifan Theodore CRNA, at bedside for intubation and assistance with IV insertion. INT attempt by multiple RNs unsuccessful at this time. 11:42: Pt being bagged by KORIN, 02% 79%. No pulse palpated, compressions started at this time; bharati young called and Dr. Newberry preparing OR for emergent c/s. 11:44: Continued compressions on stretcher while transporting pt to OR 1. Pt being bagged with jaw thrust manuever in place by KORIN Stringer student. 11:45: Arrival to OR 1. Dr. Newberry and Dr. Portillo present for emergent c/s. Code team arrived for continued care. patient revived and c/s done Patient has been bleeding from C/s site followed by supracervical hysterectomy for severe bleeding Patient transfused multiple units of PRBC, Patient in DIC. Transferred to the ICU 10/03. Patient seen and examined at bedside this morning. Patient is nonresponsive and mechanically ventilated. On pressors. Labs reviewed-has constanza kocytosis, anemia, thrombocytopenia, ADOLPH and lactic acidosis. Started on IV antibiotics to cover possible sepsis secondary to DIC. Hematology oncology recommendations appreciated-needs additional cryoprecipitate and FFP. Monitor D-dimer, fibrinogen and frequent labs. Nephrology consulted for lactic acidosis and ADOLPH. 10/04. Remains mechanically ventilated. Kevin antibiotics. Labs shows improved acidosis - lactic acid 3.5. Hb drop noted. Getting transfused 2 units PRBCs. Platelet count is ~40k. Continue to monitor labs closely. Critical care team on board. 10/05; xray reviewed, concerning for multifocal infilrate, likely underlying Pneumonia, will add ID consult to assist with management of this critically ill patient, start tube feed, closely monitor renal system 10/06: Resumed care, remains on mechanical ventilation. No active bleeding, H&H stable. Continue to monitor CBC and BMP. Continue IV antibiotic for underlying pneumonia. Follow critical care and ID recommendation. 10/07: Remains on mechanical ventilation. No active bleeding, H&H stable. Critical care following, wean off ventilation as tolerated. 10/08: Patient had another cardiac arrest last night. Remains on mechanical ventilation, update family. Continue supportive care -poor prognosis 10/09: Called patient mother and discussed about patient care and management. Answered all question to best of my knowledge and family satisfaction. Patient remains on mechanical ventilation, cardiac arrest x2 so far. Critically sick, poor prognosis 10/10: remains on mechanical ventilation. h/h stable, no active bleeding. monitor CBC/BMP 10/11: WBC trended up with diarrhea, started on vancomycin po. remains on MV, off pressor, tolerating TF 10/12: remains on MV, off pressor, tolerating TF. called family for update but unable to reach, could not leave message as it was full. cont supportive care, wean off vent as tolerated. 10/13/2020; patient is on mechanical ventilation, tolerating tube feeding. Edis damian has labored breathing. Neuro was consulted and recommend MRI. Patient is on Precedex. Rectal tube in place. 10/14/2020; patient is on mechanical ventilation, Precedex. Patient had fever and blood culture ordered. Patient is on IV vancomycin per ID recommendation. Neuro consulted and recommend MRI. Continue to monitor. Prognosis is guarded. 10/15/2020; patient is on mechanical ventilation, Precedex. Patient had fever and blood culture ordered. Patient is on IV vancomycin per ID recommendation. Neuro consulted and recommend MRI. Continue to monitor. Prognosis is guarded. 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 12/06/20; anoxic brain injury. Awaiting placement. 12/07/2020; anoxic brain injury, awaiting placement. History Interval history: Patient was seen and evaluated this morning Patient is on 5 L of oxygen via trach Patient is does not follow commands Hospitalist Physical - Physical exam Narrative exam: vITAL SIGNS: Reviewed. GENERAL: On trach and PEG HEAD: No signs of head trauma. EYES: Pupils are equal. MOUTH: OT in place NECK: No adenopathy, no JVD. CHEST: Rales posteriorly CARDIAC: normal S1 and S2, without murmurs, gallops, or rubs. ABDOMEN: Soft, non tender and non distended. surgical wound in tact, No rebound or guarding, and no masses palpated. Bowel Sounds normal. MUSCULOSKELETAL: No edema NEUROLOGIC EXAM: Does not follow command SKIN: No obvious lesions - Constitutional Vitals: Temp Pulse Resp BP Pulse Ox 98.6 F 100 H 17 109/73 98 12/08/20 08:00 12/08/20 08:47 12/08/20 08:00 12/08/20 08:47 12/08/20 08:39 General appearance: Present: no acute distress, well-nourished HEART Score - HEART Score Age: < 45 Risk factors: 1-2 risk factors - Critical Actions Critical Actions: >7 pts:50-65% risk of adverse cardiac event. Early invasive measures Results - Labs CBC & Chem 7: 11/26/20 04:37 11/26/20 04:37 Labs: Laboratory Last Values WBC 9.6 K/mm3 (4.5-11.0) 11/26/20 04:37 RBC 4.53 M/mm3 (3.65-5.03) 11/26/20 04:37 Hgb 12.5 gm/dl (10.1-14.3) 11/26/20 04:37 Hgb Comment See scanned result 10/04/20 Unknown Hct 37.1 % (30.3-42.9) 11/26/20 04:37 MCV 82 fl (79-97) 11/26/20 04:37 MCH 28 pg (28-32) 11/26/20 04:37 MCHC 34 % (30-34) 11/26/20 04:37 RDW 15.4 % (13.2-15.2) H 11/26/20 04:37 Plt Count 290 K/mm3 (140-440) 11/26/20 04:37 Lymph % (Auto) 18.9 % (13.4-35.0) 11/26/20 04:37 [place] % (Auto) 10.1 % (0.0-7.3) H 11/26/20 04:37 Eos % (Auto) 2.2 % (0.0-4.3) 11/26/20 04:37 Baso % (Auto) 0.4 % (0.0-1.8) 11/26/20 04:37 Lymph # (Auto) 1.8 K/mm3 (1.2-5.4) 11/26/20 04:37 [place] # (Auto) 1.0 K/mm3 (0.0-0.8) H 11/26/20 04:37 Eos # (Auto) 0.2 K/mm3 (0.0-0.4) 11/26/20 04:37 Baso # (Auto) 0.0 K/mm3 (0.0-0.1) 11/26/20 04:37 Add Manual Diff Complete 10/29/20 07:56 Total Counted 100 10/29/20 07:56 Seg Neutrophils % 68.4 % (40.0-70.0) 11/26/20 04:37 Seg Neuts % (Manual) 80.0 % (40.0-70.0) H 10/29/20 07:56 Band Neutrophils % 2.0 % 10/15/20 05:50 Lymphocytes % (Manual) 15.0 % (13.4-35.0) 10/29/20 07:56 Reactive Lymphs % (Man) 1.0 % 10/02/20 12:18 Monocytes % (Manual) 4.0 % (0.0-7.3) 10/29/20 07:56 Eosinophils % (Manual) 1.0 % (0.0-4.3) 10/29/20 07:56 Myelocytes % 2.0 % 10/02/20 13:05 Metamyelocytes % 1.0 % 10/14/20 04:00 Nucleated RBC % Not Reportable 10/29/20 07:56 Seg Neutrophils # 6.6 K/mm3 (1.8-7.7) 11/26/20 04:37 Seg Neutrophils # Man 10.9 K/mm3 (1.8-7.7) H 10/29/20 07:56 Band Neutrophils # 0.0 K/mm3 10/29/20 07:56 Lymphocytes # (Manual) 2.0 K/mm3 (1.2-5.4) 10/29/20 07:56 Abs React Lymphs (Man) 0.0 K/mm3 10/29/20 07:56 Monocytes # (Manual) 0.5 K/mm3 (0.0-0.8) 10/29/20 07:56 Eosinophils # (Manual) 0.1 K/mm3 (0.0-0.4) 10/29/20 07:56 Basophils # (Manual) 0.0 K/mm3 (0.0-0.1) 10/29/20 07:56 Metamyelocytes # 0.0 K/mm3 10/29/20 07:56 Myelocytes # 0.0 K/mm3 10/29/20 07:56 Promyelocytes # 0.0 K/mm3 10/29/20 07:56 Blast Cells # 0.0 K/mm3 10/29/20 07:56 WBC Morphology Not Reportable 10/29/20 07:56 Hypersegmented Neuts Not Reportable 10/29/20 07:56 Hyposegmented Neuts Not Reportable 10/29/20 07:56 Hypogranular Neuts Not Reportable 10/29/20 07:56 Smudge Cells Not Reportable 10/29/20 07:56 Toxic Granulation Not Reportable 10/29/20 07:56 Toxic Vacuolation Not Reportable 10/29/20 07:56 Dohle Bodies Not Reportable 10/29/20 07:56 Pelger-Huet Anomaly Not Reportable 10/29/20 07:56 Ester Rods Not Reportable 10/29/20 07:56 Platelet Estimate Consistent w auto 10/29/20 07:56 Clumped Platelets Not Reportable 10/29/20 07:56 Plt Clumps, EDTA Not Reportable 10/29/20 07:56 Large Platelets Few 10/29/20 07:56 Giant Platelets Not Reportable 10/29/20 07:56 Platelet Satelliting Not Reportable 10/29/20 07:56 Plt Morphology Comment Not Reportable 10/29/20 07:56 RBC Morphology Not Reportable 10/29/20 07:56 Dimorphic RBCs Not Reportable 10/29/20 07:56 Polychromasia Rare 10/29/20 07:56 Hypochromasia Few 10/29/20 07:56 Poikilocytosis Not Reportable 10/29/20 07:56 Anisocytosis Not Reportable 10/29/20 07:56 Microcytosis Not Reportable 10/29/20 07:56 Macrocytosis Not Reportable 10/29/20 07:56 Spherocytes Not Reportable 10/29/20 07:56 Pappenheimer Bodies Not Reportable 10/29/20 07:56 Sickle Cells Not Reportable 10/29/20 07:56 Target Cells Few 10/29/20 07:56 Tear Drop Cells Not Reportable 10/29/20 07:56 Ovalocytes Not Reportable 10/29/20 07:56 Stomatocytes Few 10/14/20 04:00 Helmet Cells Not Reportable 10/29/20 07:56 Burk-Morenci Bodies Not Reportable 10/29/20 07:56 [place] Rings Not Reportable 10/29/20 07:56 Antoine Cells Not Reportable 10/29/20 07:56 Bite Cells Not Reportable 10/29/20 07:56 Crenated Cell Not Reportable 10/29/20 07:56 Elliptocytes Not Reportable 10/29/20 07:56 Acanthocytes (Spur) Not Reportable 10/29/20 07:56 Rouleaux Not Reportable 10/29/20 07:56 Hemoglobin C Crystals Not Reportable 10/29/20 07:56 Schistocytes Not Reportable 10/29/20 07:56 Malaria parasites Not Reportable 10/29/20 07:56 Sickle Cell Solubility See scanned result 10/04/20 Unknown Hemoglobin A See scanned result 10/04/20 Unknown Hemoglobin A2 See scanned result 10/04/20 Unknown Hemoglobin A2 Prime See scanned result 10/04/20 Unknown Hemoglobin C See scanned result 10/04/20 Unknown Hemoglobin D See scanned result 10/04/20 Unknown Hemoglobin E See scanned result 10/04/20 Unknown Hgb F Diffential Stain See scanned result 10/04/20 Unknown Hemoglobin F Quant See scanned result 10/04/20 Unknown Hemoglobin G See scanned result 10/04/20 Unknown Hemoglobin S See scanned result 10/04/20 Unknown Hemoglobin [place] See scanned result 10/04/20 Unknown Hemoglobin [place] See scanned result 10/04/20 Unknown Hemoglobin Analilia See scanned result 10/04/20 Unknown Variant Hemoglobin See scanned result 10/04/20 Unknown Abnorm Hgb IEF Confirm See scanned result 10/04/20 Unknown Hemoglobin Interpret See scanned result 10/04/20 Unknown Hemoglobinopathy Note See scanned result 10/04/20 Unknown Sharad Bodies Not Reportable 10/29/20 07:56 Hem Pathologist Commnt No 10/29/20 07:56 PT 13.6 Sec. (12.2-14.9) 10/21/20 13:54 INR 1.06 (0.87-1.13) 10/21/20 13:54 APTT 31.6 Sec. (24.2-36.6) 10/03/20 00:40 Fibrinogen 336 mg/dl (211-480) 10/04/20 10:00 D-Dimer 1974.47 ng/mlDDU (0-234) H 11/11/20 13:50 ABG pH 7.459 pH Units (7.350-7.450) H 10/26/20 10:30 POC ABG pCO2 20.7 mmHg (32.0-48.0) L 10/13/20 07:18 ABG pCO2 32.4 mm Hg 10/26/20 10:30 POC ABG pO2 137.9 mmHg (83-108) H 10/13/20 07:18 ABG pO2 112.2 mm Hg (80.0-90.0) H 10/26/20 10:30 POC ABG HCO3 14.8 10/13/20 07:18 ABG HCO3 22.5 mmol/L (20.0-26.0) 10/26/20 10:30 ABG O2 Saturation 98.2 % (95.0-99.0) 10/26/20 10:30 ABG O2 Content 18.5 (0.0-44) 10/26/20 10:30 POC ABG Base Excess -6.9 10/13/20 07:18 ABG Base Excess -0.6 mmol/L (-2.0-3.0) 10/26/20 10:30 ABG Hemoglobin 13.5 gm/dl (12.0-16.0) 10/26/20 10:30 ABG Oxyhemoglobin 98.3 (94-98) H 10/13/20 07:18 ABG Carboxyhemoglobin 1.3 % (0.0-5.0) 10/26/20 10:30 ABG Methemoglobin 0.5 % (0.0-1.5) 10/26/20 10:30 ABG Sodium 135.9 mmol/L (136.0-145.0) L 10/13/20 07:18 ABG Potassium 3.7 mmol/L (3.40-4.50) 10/13/20 07:18 ABG Chloride 111.0 mmol/L (98-107) H 10/13/20 07:18 ABG Glucose 109 mg/dL (65-95) H 10/13/20 07:18 VBG pH 6.949 (7.320-7.420) L* 10/02/20 Unknown Oxyhemoglobin 96.5 % (95.0-99.0) 10/26/20 10:30 Carboxyhemoglobin 0.3 (0.5-1.5) L 10/13/20 07:18 FiO2 25 % 10/26/20 10:30 Sodium 139 mmol/L (137-145) 11/26/20 04:37 Potassium 3.6 mmol/L (3.6-5.0) 11/26/20 04:37 Chloride 101.0 mmol/L (98-107) 11/26/20 04:37 Carbon Dioxide 26 mmol/L (22-30) 11/26/20 04:37 Anion Gap 16 mmol/L 11/26/20 04:37 BUN 9 mg/dL (7-17) 11/26/20 04:37 Creatinine 0.6 mg/dL (0.6-1.2) 11/26/20 04:37 Estimated GFR > 60 ml/min 11/26/20 04:37 BUN/Creatinine Ratio 15 % 11/26/20 04:37 Glucose 109 mg/dL (65-100) H 11/26/20 04:37 POC Glucose 96 mg/dL (70-105) 12/08/20 05:05 Random Insulin 43.2 uIU/mL (<=19.6) H 11/02/20 19:19 Proinsulin See scanned result 11/02/20 19:19 C-Peptide 6.23 ng/mL (0.80-3.85) H 11/02/20 19:19 Lactic Acid 1.90 mmol/L (0.7-2.0) 10/04/20 22:00 Uric Acid 7.5 mg/dL (3.5-7.6) 10/02/20 13:05 Calcium 9.5 mg/dL (8.4-10.2) 11/26/20 04:37 Ionized Calcium 4.4 mg/dL (4.8-5.6) L 10/07/20 21:00 Phosphorus 4.60 mg/dL (2.5-4.5) H 11/13/20 10:05 Magnesium 2.10 mg/dL (1.7-2.3) 11/13/20 10:05 Total Bilirubin 0.50 mg/dL (0.1-1.2) 11/26/20 04:37 AST 51 units/L (5-40) H 11/26/20 04:37 ALT 42 units/L (7-56) 11/26/20 04:37 Alkaline Phosphatase 117 units/L (35-129) 11/26/20 04:37 Lactate Dehydrogenase 769 units/L (91-180) H 10/02/20 13:05 C-Reactive Protein 0.70 mg/dL (0.00-1.30) 11/11/20 13:50 NT-Pro-B Natriuret Pep 2788 pg/mL (0-450) H 10/04/20 10:00 Total Protein 7.8 g/dL (6.3-8.2) 11/26/20 04:37 Albumin 3.9 g/dL (3.9-5) 11/26/20 04:37 Albumin/Globulin Ratio 1.0 % 11/26/20 04:37 Procalcitonin < 0.05 ng/mL (<0.15) 11/11/20 13:50 Arterial Blood Glucose 109 mg/dL (65-95) H 10/13/20 07:18 Arterial Blood Ionized Calcium 4.6 mg/dL (4.6-5.3) 10/13/20 07:18 Urine Color Yellow (Yellow) 11/11/20 13:50 Urine Turbidity Cloudy (Clear) 11/11/20 13:50 Urine pH 6.0 (5.0-7.0) 11/11/20 13:50 Ur Specific [place] 1.013 (1.003-1.030) 11/11/20 13:50 Urine Protein 100 mg/dl mg/dL (Negative) 11/11/20 13:50 Urine Glucose (UA) Neg mg/dL (Negative) 11/11/20 13:50 Urine Ketones Neg mg/dL (Negative) 11/11/20 13:50 Urine Blood Mod (Negative) 11/11/20 13:50 Urine Nitrite Pos (Negative) 11/11/20 13:50 Urine Bilirubin Neg (Negative) 11/11/20 13:50 Urine Urobilinogen 2.0 mg/dL (<2.0) 11/11/20 13:50 Ur Leukocyte Esterase Lg (Negative) 11/11/20 13:50 Urine WBC (Auto) > 182.0 /HPF (0.0-6.0) H 11/11/20 13:50 Urine RBC (Auto) > 182.0 /HPF (0.0-6.0) 11/11/20 13:50 U Epithel Cells (Auto) 1.0 /HPF (0-13.0) 11/11/20 13:50 Urine Bacteria (Auto) 4+ /HPF (Negative) 11/11/20 13:50 Urine WBC Clumps 3+ /HPF 11/11/20 13:50 Calcium Oxalate Crystal Few 11/11/20 13:50 Urine Mucus Few /HPF 11/11/20 13:50 Vancomycin Trough 12.6 ug/mL (5.0-20.0) 10/21/20 13:54 Random Vancomycin 10.7 ug/mL (0-40.0) 10/16/20 13:09 Phenytoin 5.7 ug/mL (10.0-20.0) L 10/13/20 07:00 C. difficile Tox (PCR) Positive (Negative) 10/16/20 10:22 Coronavirus (PCR) Negative (Negative) 10/08/20 14:15 Blood Type O POSITIVE 10/02/20 12:50 Antibody Screen Negative 10/02/20 12:50 Crossmatch See Detail 10/02/20 12:50 - Diagnostic Impressions Diagnostic Impressions: Echocardiogram 10/03/20 13:42 Transthoracic Echocardiogram Indication: S/P Cardiac Arrest R/O Cardiomyopathy BP: 133/71 Conclusions *Global left ventricular systolic function is normal. *The estimated ejection fraction is 60-65%. *There is trace of mitral regurgitation. *The right 0heart chambers are both slightly dilated. *There is mild tricuspid regurgitation. *There is mild-moderate pulmonary hypertension. *The right ventricular systolic pressure is calculated at 44 mmHg. *The study quality is technically difficult. Findings Procedure Info: The study quality is technically difficult. The study is technically limited due to patient body habitus. The study was technically limited due to the patient's inability to lay in the left lateral decubitus position. Left Ventricle: The left ventricular chamber size is normal. There is no left ventricular hypertrophy. Global left ventricular systolic function is normal. The estimated ejection fraction is 60-65%. Left Atrium: The left atrial chamber size is normal. Right Ventricle: The right ventricle is slightly dilated. Right Atrium: The right atrium is mildly dilated. Aortic Valve: The aortic valve leaflets are mildly thickened. There is no evidence of aortic regurgitation. There is no evidence of aortic stenosis. Mitral Valve: The mitral valve leaflets are mildly thickened. There is trace of mitral regurgitation. There is no evidence of mitral stenosis. Tricuspid Valve: There is mild tricuspid regurgitation. The right ventricular systolic pressure is calculated at 44 mmHg. There is evidence of mild pulmonary hypertension. Pulmonic Valve: There is trace pulmonic regurgitation. Pericardium: There is no pericardial effusion. Aorta: There is no dilatation of the ascending aorta. There is no dilatation of the aortic root. Venous: The inferior vena cava is dilated. Measurements Chambers 2D Name Value Normal Range IVSd (2D) 1 cm (0.6 - 1.1) LVPWd (2D) 1.01 cm (0.6 - 1.1) LVIDd (2D) 4.58 cm (3.7 - 5.6) LVIDs (2D) 3.17 cm (2 - 3.8) LV FS (2D) 30.93 % - EF Teichholz (2D) 58.66 % - Ao root diameter (2D) 2.94 cm (2 - 3.7) Volumes/Mass Name Value Normal Range LA ESV SP 4CH (A/L) 72.82 ml - LA ESV SP 2CH (A/L) 66.86 ml - LA ESV BP (A/L) 74.49 ml - LA ESV SP 4CH (MOD) 71.03 ml - LA ESV SP 2CH (MOD) 64.3 ml - LV EDV SP 4CH (MOD) 98.82 ml - LV ESV SP 4CH (MOD) 24.8 ml - EF SP 4CH (MOD) 74.9 % - LV EDV SP 2CH (MOD) 86.1 ml - LV ESV SP 2CH (MOD) 36.93 ml - EF SP 2CH (MOD) 57.11 % - LV EDV BP 94.4 ml - LV ESV BP 32.66 ml - BP EF (MOD) 65.4 % - Diastolic/Systolic Function Name Value Normal Range MV E-wave Vmax 1.04 m/sec - MV deceleration time 160.46 msec - MV A-wave Vmax 0.92 m/sec - MV E:A ratio 1.14 ratio - Aortic Valve Name Value Normal Range AV Vmax 2.12 m/sec - AV VTI 22.37 cm - AV peak gradient 17.95 mmHg - AV mean gradient 7.29 mmHg - LVOT diameter 2.01 cm - LVOT Vmax 1.8 m/sec - LVOT VTI 27.17 cm - LVOT peak gradient 12.91 mmHg - LVOT mean gradient 6.83 mmHg - SV LVOT 86.42 ml - ANITA (continuity Vmax) 2.7 cm2 - ANITA (continuity VTI) 3.86 cm2 - Ascending Ao 3.18 cm - Tricuspid Valve Name Value Normal Range TV E-wave Vmax 0.88 m/sec - TR Vmax 3.01 m/sec - TR peak gradient 36.27 mmHg - RAP 8 mmHg - RVSP 44 mmHg - IVC diameter 2.65 cm (1.2 - 2.3) Pulmonic Valve/Qp:Qs Name Value Normal Range PV Vmax 1.22 m/sec - PV peak gradient 5.91 mmHg - RVOT Vmax 0.87 m/sec - RVOT VTI 13.32 cm - RVOT peak gradient 3 mmHg - PV acceleration time 110.37 msec - [place]/IV: Voiding Method External Female Catheter IV Catheter Type [Right Foot] INT / Saline Lock IV Catheter Type [Left Forearm Peripheral IV ] IV Catheter Type [Left Wrist] INT / Saline Lock IV Catheter Type [Right Hand] INT / Saline Lock IV Catheter Type [Right INT / Saline Lock Antecubital] IV Catheter Type [Right Upper Mid-line arm] IV Catheter Type [Left Triple Lumen Cath Internal Jugular] IV Catheter Type [Left Hand] Peripheral IV IV Catheter Type [Left Peripheral IV Antecubital] Active Medications - Current Medications Current Medications: Generic Name Dose Route Start Last Admin Trade Name Freq PRN Reason Stop Dose Admin Acetaminophen 650 mg 10/05/20 16:34 12/08/20 06:22 Acetaminophen 325 Mg/10.15 Ml Oral Liqd Unit Dose FEEDTUBE 650 mg Q6H PRN Administration Non Cardiac Pain or Temp>100.5 Albuterol 2.5 mg 11/05/20 13:03 11/06/20 13:04 Albuterol 2.5 Mg/3 Ml Nebu IH 2.5 mg Q4HRT PRN Administration Shortness Of Breath Lipase/Protease/Amylase 1 each 10/05/20 11:09 Lipase 10,500/Protease 25,000/Amylase 43,750 (Units) Dr Barakat FEEDTUBE PRN PRN For Clogged Feeding Tube Enoxaparin Sodium 40 mg 10/22/20 10:00 12/08/20 09:06 Enoxaparin 40 Mg/0.4 Ml Inj SUB-Q 40 mg DAILY ERINN Administration Protocol Famotidine 20 mg 10/07/20 10:00 12/08/20 09:06 Famotidine 20 Mg Tab PO 20 mg BID ERINN Administration Furosemide 40 mg 10/17/20 10:00 12/08/20 09:06 Furosemide 40 Mg Tab PO 40 mg QDAY ERINN Administration Hydralazine HCl 20 mg 10/07/20 11:49 10/17/20 07:20 Hydralazine 20 Mg/1 Ml Inj IV 20 mg Q6H PRN Administration SBP >170 Hydralazine HCl 50 mg 10/17/20 09:00 12/08/20 06:22 Hydralazine 25 Mg Tab PO 50 mg Q8HR ERINN Administration Labetalol HCl 300 mg 11/16/20 17:00 12/08/20 08:47 Labetalol 200 Mg Tab PO 300 mg TID ERINN Administration Simple Syrup 15 ml 10/05/20 11:09 Simple Syrup 15 Ml FEEDTUBE PRN PRN Hypoglycemia Simple Syrup 30 ml 10/05/20 11:09 Simple Syrup 15 Ml FEEDTUBE PRN PRN Hypoglycemia Sodium Bicarbonate 325 mg 10/05/20 11:09 11/24/20 11:51 Sodium Bicarbonate 325 Mg Tab FEEDTUBE 325 mg PRN PRN Administration For Clogged Feeding Tube Sodium Bicarbonate 1,300 mg 10/13/20 14:00 12/08/20 08:47 Sodium Bicarbonate 650 Mg Tab PO 1,300 mg TID ERINN Administration Nutrition/Malnutrition Assess - Dietary Evaluation Nutrition/Malnutrition Findings: Nutrition Notes Start: 10/04/20 11:13 Freq: Status: Active Protocol: Document 12/01/20 14:38 AL (Rec: 12/01/20 14:51 AL [id number]) Co-Sign 12/01/20 14:38 LP Nutrition Notes Initial or Follow up Reassessment Current Diagnosis Acute Kidney Injury, Respiratory Failure Other Pertinent Diagnosis C-Diff, Cardiac arrest, s/p c- section and supracervical hysterectomy Current Diet Jevity 1.2 at 60 ml/hr Labs/Tests Reviewed Pertinent Medications Lasix D10w at 75ml/hr Height 5 ft 8 in Weight 101.8 kg [place] Body Weight (kg) 63.63 BMI 34.1 Subjective/Other Information F/U for TF tolerance. Pt continues to tolerate Jevity 1 .2 at 60 mls/hr (goal rate). Percent of energy/protein needs met: 100%/96% Burn Absent Trauma Absent GI Symptoms None Food Allergy Yes Current % PO Negligible Minimum of two criteria Yes Interpretation of Weight Loss (severe) >2% in 1 week Fluid Accumulation Mild (non-severe) #2 Nutrition Diagnosis Malnutrition As Evidenced by Signs and Symptoms fluid accumulation and wt loss of 11% in 1 month #1 Nutrition Diagnosis Inadequate oral intake Diagnosis Progress(for reassessment Continues documentation) Is patient on ventilator? No Is Patient Ambulatory and/or Out of Bed No REE-([facility]-confined to bed) 2133.648 Kcal/Kg value to use for calculation 16 Approximate Energy Requirements Using 1629 kcal/Kg Calculation Used for Recommendations Kcal/kg Additional Notes Protein needs are 66-83g (0.8- 1g/kg AdjBW 83kg) Fluid needs are 1ml/kcal Nutrition Intervention Change Diet Order: Continue Nutrition Support: Jevity 1.2 at 60ml/hr. Flush 100ml q4h. Kcal 1,728 Protein (gm) 80 Fluid (mL) 1,162 Goal #1 TF tolerance Goal #2 Meet at least 75% of energy and protein needs Anticipated Discharge Needs: Unable to determine at this time Follow-Up By: 12/08/20 Additional Comments FU for TF tolerance
[2020-12-09] MEDS: hydrALAZINE 25 MG TAB PO SCH ×3 (05:14→22:35)
[2020-12-09] MEDS: ACETAMINOPHEN 325 MG/10.15 ML ORAL LIQD UNIT DOSE FEEDTUBE PRN (06:20)
--- NOTE | 2020-12-09 09:03 | Progress Note ---
Assessment and Plan Assessment and plan: -- Sepsis with presumed Pneumonia Teated with iv abx, follow Cx -Completed cefepime course 5 days on 10/09/2020 -Check MRSA culture -Start vancomycin p.o. empirically for C. difficile total 10 days, given diarrhea and worsening leukocytosis, --Acute respiratory failure with hypoxia Patient intubated Vent management per CC --DIC (disseminated intravascular coagulation) vs HELLP syndrome Has anemia,thrombocytopenia and elevated liver enzymes Patient received multiple units of RBCs, FFP's, cryo Hematology/oncology recommendations appreciated Continue to trend fibrinogen and INR Critical care on board --Possible Eclampsia/HELLP Syndrome Patient presented with seizure-->hypoxia-->urgent C section-->hysterectomy for severe bleeding/DIC developed severe anemia-->received RBC, plt, FFP, cryo was on max pressors-->now off pressors still on vent, on sedation Hematology following --s/p Cardiac arrest x2 on admission and on 10/07 ACLS protocol followed by revival Echo showed preserved Ef --Shock s/p pressor support Likely hypovolemic. on empirical antibiotics for possible sepsis. Continue to monitor blood pressure closely Trend H&H and transfuse as needed --Lactic acidosis As a result of poor organ perfusion and possible sepsis Continue IV hydration. Lactic acid is trending down Nephrology on board --ADOLPH As a result of hypoperfusion and shock Continue IV hydration Cr stable, follow BMP --DVT prophylaxis Patient presented with DIC No anticoagulants The high probability of a clinically significant, sudden or life threatening deterioration of the [pulmonary] system(s) required my full and direct attention, intervention and personal management. The aggregate critical care t cristhian was [35] minutes. This time is in addition to time spent performing reported procedures but includes the following: [x] Data Review and interpretation [x] Patient assessment and monitoring of vital signs [x] Documentation [x] Medication orders and management brief History 30 year old -U[place]and[place] female CHE 10/25/20 at 36w5d who presents with seizures in triage on 10/02/20. Pt was not able to provide history but per pt's , she presented to the hospital to return a 24 hour urine specimen for analysis. She then suddenly reported that she did not feel good. She was taken to labor and delivery and shortly after arrival, she began seizing. During this time, a code met was called because the patient became hypoxic. She was then noted to be without a pulse. Chest compressions were started immediately, and the patient was emergently taken to the operating room for delivery of the fetus. Off note, This patient has had care at [facility] with comanagement by [facility] since 11 wks complicated by ADHD, morbid obesity, gen eralized anxiety disorder, panic attacks, chronic narcotic use, fibromyalgia, GERD, Irritable Bowel Syndrome, Migraines, h/o endometrial ablation and ovarian vein embolization, genital herpes, insomnia, LGA fetus, nausea and vomiting, polyhydramnios, quad screen positive for Down's Syndrome, and previous x 3. She is GBS negative. 11:30: Pt brought to L&D triage for evaluation of possible labor. Pt accompanied by her spouse. Pt spouse poor historian; unable to obtain history- allergies at this time. Pt taken from registration to triage area via WC. Pt unresponsive, actively seizing with snorous respirations. aircraft engine mechanic supervisor, Kassy, called and requesting assistance. 11:35: Multiple staff at bedside. Pt 02 sat 67% on nonrebreather, unable to read BP at this time. Yifan Theodore CRNA, at bedside for intubation and assistance with IV insertion. INT attempt by multiple RNs unsuccessful at this time. 11:42: Pt being bagged by KORIN, 02% 79%. No pulse palpated, compressions started at this time; bharati young called and Dr. Newberry preparing OR for emergent c/s. 11:44: Continued compressions on stretcher while transporting pt to OR 1. Pt being bagged with jaw thrust manuever in place by KORIN Stringer student. 11:45: Arrival to OR 1. Dr. Newberry and Dr. Portillo present for emergent c/s. Code team arrived for continued care. patient revived and c/s done Patient has been bleeding from C/s site followed by supracervical hysterectomy for severe bleeding Patient transfused multiple units of PRBC, Patient in DIC. Transferred to the ICU 10/03. Patient seen and examined at bedside this morning. Patient is nonresponsive and mechanically ventilated. On pressors. Labs reviewed-has constanza kocytosis, anemia, thrombocytopenia, ADOLPH and lactic acidosis. Started on IV antibiotics to cover possible sepsis secondary to DIC. Hematology oncology recommendations appreciated-needs additional cryoprecipitate and FFP. Monitor D-dimer, fibrinogen and frequent labs. Nephrology consulted for lactic acidosis and ADOLPH. 10/04. Remains mechanically ventilated. Kevin antibiotics. Labs shows improved acidosis - lactic acid 3.5. Hb drop noted. Getting transfused 2 units PRBCs. Platelet count is ~40k. Continue to monitor labs closely. Critical care team on board. 10/05; xray reviewed, concerning for multifocal infilrate, likely underlying Pneumonia, will add ID consult to assist with management of this critically ill patient, start tube feed, closely monitor renal system 10/06: Resumed care, remains on mechanical ventilation. No active bleeding, H&H stable. Continue to monitor CBC and BMP. Continue IV antibiotic for underlying pneumonia. Follow critical care and ID recommendation. 10/07: Remains on mechanical ventilation. No active bleeding, H&H stable. Critical care following, wean off ventilation as tolerated. 10/08: Patient had another cardiac arrest last night. Remains on mechanical ventilation, update family. Continue supportive care -poor prognosis 10/09: Called patient mother and discussed about patient care and management. Answered all question to best of my knowledge and family satisfaction. Patient remains on mechanical ventilation, cardiac arrest x2 so far. Critically sick, poor prognosis 10/10: remains on mechanical ventilation. h/h stable, no active bleeding. monitor CBC/BMP 10/11: WBC trended up with diarrhea, started on vancomycin po. remains on MV, off pressor, tolerating TF 10/12: remains on MV, off pressor, tolerating TF. called family for update but unable to reach, could not leave message as it was full. cont supportive care, wean off vent as tolerated. 10/13/2020; patient is on mechanical ventilation, tolerating tube feeding. Edis damian has labored breathing. Neuro was consulted and recommend MRI. Patient is on Precedex. Rectal tube in place. 10/14/2020; patient is on mechanical ventilation, Precedex. Patient had fever and blood culture ordered. Patient is on IV vancomycin per ID recommendation. Neuro consulted and recommend MRI. Continue to monitor. Prognosis is guarded. 10/15/2020; patient is on mechanical ventilation, Precedex. Patient had fever and blood culture ordered. Patient is on IV vancomycin per ID recommendation. Neuro consulted and recommend MRI. Continue to monitor. Prognosis is guarded. 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 12/06/20; anoxic brain injury. Awaiting placement. 12/07/2020; anoxic brain injury, awaiting placement. 12/09/2020; anoxic brain injury, awaiting placement. History Interval history: Patient was seen and evaluated this morning Patient is on 2L of oxygen via trach Patient is does not follow commands Hospitalist Physical - Physical exam Narrative exam: vITAL SIGNS: Reviewed. GENERAL: On trach and PEG HEAD: No signs of head trauma. EYES: Pupils are equal. MOUTH: OT in place NECK: No adenopathy, no JVD. CHEST: Rales posteriorly CARDIAC: normal S1 and S2, without murmurs, gallops, or rubs. ABDOMEN: Soft, non tender and non distended. surgical wound in tact, No rebound or guarding, and no masses palpated. Bowel Sounds normal. MUSCULOSKELETAL: No edema NEUROLOGIC EXAM: Does not follow command SKIN: No obvious lesions - Constitutional Vitals: Temp Pulse Resp BP Pulse Ox 99.3 F 90 19 132/66 100 12/09/20 08:00 12/09/20 08:00 12/09/20 08:00 12/09/20 08:00 12/09/20 08:04 General appearance: Present: no acute distress, well-nourished HEART Score - HEART Score Age: < 45 Risk factors: 1-2 risk factors - Critical Actions Critical Actions: >7 pts:50-65% risk of adverse cardiac event. Early invasive measures Results - Labs CBC & Chem 7: 11/26/20 04:37 11/26/20 04:37 Labs: Laboratory Last Values WBC 9.6 K/mm3 (4.5-11.0) 11/26/20 04:37 RBC 4.53 M/mm3 (3.65-5.03) 11/26/20 04:37 Hgb 12.5 gm/dl (10.1-14.3) 11/26/20 04:37 Hgb Comment See scanned result 10/04/20 Unknown Hct 37.1 % (30.3-42.9) 11/26/20 04:37 MCV 82 fl (79-97) 11/26/20 04:37 MCH 28 pg (28-32) 11/26/20 04:37 MCHC 34 % (30-34) 11/26/20 04:37 RDW 15.4 % (13.2-15.2) H 11/26/20 04:37 Plt Count 290 K/mm3 (140-440) 11/26/20 04:37 Lymph % (Auto) 18.9 % (13.4-35.0) 11/26/20 04:37 [place] % (Auto) 10.1 % (0.0-7.3) H 11/26/20 04:37 Eos % (Auto) 2.2 % (0.0-4.3) 11/26/20 04:37 Baso % (Auto) 0.4 % (0.0-1.8) 11/26/20 04:37 Lymph # (Auto) 1.8 K/mm3 (1.2-5.4) 11/26/20 04:37 [place] # (Auto) 1.0 K/mm3 (0.0-0.8) H 11/26/20 04:37 Eos # (Auto) 0.2 K/mm3 (0.0-0.4) 11/26/20 04:37 Baso # (Auto) 0.0 K/mm3 (0.0-0.1) 11/26/20 04:37 Add Manual Diff Complete 10/29/20 07:56 Total Counted 100 10/29/20 07:56 Seg Neutrophils % 68.4 % (40.0-70.0) 11/26/20 04:37 Seg Neuts % (Manual) 80.0 % (40.0-70.0) H 10/29/20 07:56 Band Neutrophils % 2.0 % 10/15/20 05:50 Lymphocytes % (Manual) 15.0 % (13.4-35.0) 10/29/20 07:56 Reactive Lymphs % (Man) 1.0 % 10/02/20 12:18 Monocytes % (Manual) 4.0 % (0.0-7.3) 10/29/20 07:56 Eosinophils % (Manual) 1.0 % (0.0-4.3) 10/29/20 07:56 Myelocytes % 2.0 % 10/02/20 13:05 Metamyelocytes % 1.0 % 10/14/20 04:00 Nucleated RBC % Not Reportable 10/29/20 07:56 Seg Neutrophils # 6.6 K/mm3 (1.8-7.7) 11/26/20 04:37 Seg Neutrophils # Man 10.9 K/mm3 (1.8-7.7) H 10/29/20 07:56 Band Neutrophils # 0.0 K/mm3 10/29/20 07:56 Lymphocytes # (Manual) 2.0 K/mm3 (1.2-5.4) 10/29/20 07:56 Abs React Lymphs (Man) 0.0 K/mm3 10/29/20 07:56 Monocytes # (Manual) 0.5 K/mm3 (0.0-0.8) 10/29/20 07:56 Eosinophils # (Manual) 0.1 K/mm3 (0.0-0.4) 10/29/20 07:56 Basophils # (Manual) 0.0 K/mm3 (0.0-0.1) 10/29/20 07:56 Metamyelocytes # 0.0 K/mm3 10/29/20 07:56 Myelocytes # 0.0 K/mm3 10/29/20 07:56 Promyelocytes # 0.0 K/mm3 10/29/20 07:56 Blast Cells # 0.0 K/mm3 10/29/20 07:56 WBC Morphology Not Reportable 10/29/20 07:56 Hypersegmented Neuts Not Reportable 10/29/20 07:56 Hyposegmented Neuts Not Reportable 10/29/20 07:56 Hypogranular Neuts Not Reportable 10/29/20 07:56 Smudge Cells Not Reportable 10/29/20 07:56 Toxic Granulation Not Reportable 10/29/20 07:56 Toxic Vacuolation Not Reportable 10/29/20 07:56 Dohle Bodies Not Reportable 10/29/20 07:56 Pelger-Huet Anomaly Not Reportable 10/29/20 07:56 Ester Rods Not Reportable 10/29/20 07:56 Platelet Estimate Consistent w auto 10/29/20 07:56 Clumped Platelets Not Reportable 10/29/20 07:56 Plt Clumps, EDTA Not Reportable 10/29/20 07:56 Large Platelets Few 10/29/20 07:56 Giant Platelets Not Reportable 10/29/20 07:56 Platelet Satelliting Not Reportable 10/29/20 07:56 Plt Morphology Comment Not Reportable 10/29/20 07:56 RBC Morphology Not Reportable 10/29/20 07:56 Dimorphic RBCs Not Reportable 10/29/20 07:56 Polychromasia Rare 10/29/20 07:56 Hypochromasia Few 10/29/20 07:56 Poikilocytosis Not Reportable 10/29/20 07:56 Anisocytosis Not Reportable 10/29/20 07:56 Microcytosis Not Reportable 10/29/20 07:56 Macrocytosis Not Reportable 10/29/20 07:56 Spherocytes Not Reportable 10/29/20 07:56 Pappenheimer Bodies Not Reportable 10/29/20 07:56 Sickle Cells Not Reportable 10/29/20 07:56 Target Cells Few 10/29/20 07:56 Tear Drop Cells Not Reportable 10/29/20 07:56 Ovalocytes Not Reportable 10/29/20 07:56 Stomatocytes Few 10/14/20 04:00 Helmet Cells Not Reportable 10/29/20 07:56 Burk-[place] Bodies Not Reportable 10/29/20 07:56 [place] Rings Not Reportable 10/29/20 07:56 Marm[place]uke Cells Not Reportable 10/29/20 07:56 Bite Cells Not Reportable 10/29/20 07:56 Crenated Cell Not Reportable 10/29/20 07:56 Elliptocytes Not Reportable 10/29/20 07:56 Acanthocytes (Spur) Not Reportable 10/29/20 07:56 Rouleaux Not Reportable 10/29/20 07:56 Hemoglobin C Crystals Not Reportable 10/29/20 07:56 Schistocytes Not Reportable 10/29/20 07:56 Malaria parasites Not Reportable 10/29/20 07:56 Sickle Cell Solubility See scanned result 10/04/20 Unknown Hemoglobin A See scanned result 10/04/20 Unknown Hemoglobin A2 See scanned result 10/04/20 Unknown Hemoglobin A2 Prime See scanned result 10/04/20 Unknown Hemoglobin C See scanned result 10/04/20 Unknown Hemoglobin D See scanned result 10/04/20 Unknown Hemoglobin E See scanned result 10/04/20 Unknown Hgb F Diffential Stain See scanned result 10/04/20 Unknown Hemoglobin F Quant See scanned result 10/04/20 Unknown Hemoglobin G See scanned result 10/04/20 Unknown Hemoglobin S See scanned result 10/04/20 Unknown Hemoglobin O-Entriken See scanned result 10/04/20 Unknown Hemoglobin Barts See scanned result 10/04/20 Unknown Hemoglobin Analilia See scanned result 10/04/20 Unknown Variant Hemoglobin See scanned result 10/04/20 Unknown Abnorm Hgb IEF Confirm See scanned result 10/04/20 Unknown Hemoglobin Interpret See scanned result 10/04/20 Unknown Hemoglobinopathy Note See scanned result 10/04/20 Unknown Sharad Bodies Not Reportable 10/29/20 07:56 Hem Pathologist Commnt No 10/29/20 07:56 PT 13.6 Sec. (12.2-14.9) 10/21/20 13:54 INR 1.06 (0.87-1.13) 10/21/20 13:54 APTT 31.6 Sec. (24.2-36.6) 10/03/20 00:40 Fibrinogen 336 mg/dl (211-480) 10/04/20 10:00 D-Dimer 1974.47 ng/mlDDU (0-234) H 11/11/20 13:50 ABG pH 7.459 pH Units (7.350-7.450) H 10/26/20 10:30 POC ABG pCO2 20.7 mmHg (32.0-48.0) L 10/13/20 07:18 ABG pCO2 32.4 mm Hg 10/26/20 10:30 POC ABG pO2 137.9 mmHg (83-108) H 10/13/20 07:18 ABG pO2 112.2 mm Hg (80.0-90.0) H 10/26/20 10:30 POC ABG HCO3 14.8 10/13/20 07:18 ABG HCO3 22.5 mmol/L (20.0-26.0) 10/26/20 10:30 ABG O2 Saturation 98.2 % (95.0-99.0) 10/26/20 10:30 ABG O2 Content 18.5 (0.0-44) 10/26/20 10:30 POC ABG Base Excess -6.9 10/13/20 07:18 ABG Base Excess -0.6 mmol/L (-2.0-3.0) 10/26/20 10:30 ABG Hemoglobin 13.5 gm/dl (12.0-16.0) 10/26/20 10:30 ABG Oxyhemoglobin 98.3 (94-98) H 10/13/20 07:18 ABG Carboxyhemoglobin 1.3 % (0.0-5.0) 10/26/20 10:30 ABG Methemoglobin 0.5 % (0.0-1.5) 10/26/20 10:30 ABG Sodium 135.9 mmol/L (136.0-145.0) L 10/13/20 07:18 ABG Potassium 3.7 mmol/L (3.40-4.50) 10/13/20 07:18 ABG Chloride 111.0 mmol/L (98-107) H 10/13/20 07:18 ABG Glucose 109 mg/dL (65-95) H 10/13/20 07:18 VBG pH 6.949 (7.320-7.420) L* 10/02/20 Unknown Oxyhemoglobin 96.5 % (95.0-99.0) 10/26/20 10:30 Carboxyhemoglobin 0.3 (0.5-1.5) L 10/13/20 07:18 FiO2 25 % 10/26/20 10:30 Sodium 139 mmol/L (137-145) 11/26/20 04:37 Potassium 3.6 mmol/L (3.6-5.0) 11/26/20 04:37 Chloride 101.0 mmol/L (98-107) 11/26/20 04:37 Carbon Dioxide 26 mmol/L (22-30) 11/26/20 04:37 Anion Gap 16 mmol/L 11/26/20 04:37 BUN 9 mg/dL (7-17) 11/26/20 04:37 Creatinine 0.6 mg/dL (0.6-1.2) 11/26/20 04:37 Estimated GFR > 60 ml/min 11/26/20 04:37 BUN/Creatinine Ratio 15 % 11/26/20 04:37 Glucose 109 mg/dL (65-100) H 11/26/20 04:37 POC Glucose 114 mg/dL (70-105) H 12/09/20 05:32 Random Insulin 43.2 uIU/mL (<=19.6) H 11/02/20 19:19 Proinsulin See scanned result 11/02/20 19:19 C-Peptide 6.23 ng/mL (0.80-3.85) H 11/02/20 19:19 Lactic Acid 1.90 mmol/L (0.7-2.0) 10/04/20 22:00 Uric Acid 7.5 mg/dL (3.5-7.6) 10/02/20 13:05 Calcium 9.5 mg/dL (8.4-10.2) 11/26/20 04:37 Ionized Calcium 4.4 mg/dL (4.8-5.6) L 10/07/20 21:00 Phosphorus 4.60 mg/dL (2.5-4.5) H 11/13/20 10:05 Magnesium 2.10 mg/dL (1.7-2.3) 11/13/20 10:05 Total Bilirubin 0.50 mg/dL (0.1-1.2) 11/26/20 04:37 AST 51 units/L (5-40) H 11/26/20 04:37 ALT 42 units/L (7-56) 11/26/20 04:37 Alkaline Phosphatase 117 units/L (35-129) 11/26/20 04:37 Lactate Dehydrogenase 769 units/L (91-180) H 10/02/20 13:05 C-Reactive Protein 0.70 mg/dL (0.00-1.30) 11/11/20 13:50 NT-Pro-B Natriuret Pep 2788 pg/mL (0-450) H 10/04/20 10:00 Total Protein 7.8 g/dL (6.3-8.2) 11/26/20 04:37 Albumin 3.9 g/dL (3.9-5) 11/26/20 04:37 Albumin/Globulin Ratio 1.0 % 11/26/20 04:37 Procalcitonin < 0.05 ng/mL (<0.15) 11/11/20 13:50 Arterial Blood Glucose 109 mg/dL (65-95) H 10/13/20 07:18 Arterial Blood Ionized Calcium 4.6 mg/dL (4.6-5.3) 10/13/20 07:18 Urine Color Yellow (Yellow) 11/11/20 13:50 Urine Turbidity Cloudy (Clear) 11/11/20 13:50 Urine pH 6.0 (5.0-7.0) 11/11/20 13:50 Ur Specific [place] 1.013 (1.003-1.030) 11/11/20 13:50 Urine Protein 100 mg/dl mg/dL (Negative) 11/11/20 13:50 Urine Glucose (UA) Neg mg/dL (Negative) 11/11/20 13:50 Urine Ketones Neg mg/dL (Negative) 11/11/20 13:50 Urine Blood Mod (Negative) 11/11/20 13:50 Urine Nitrite Pos (Negative) 11/11/20 13:50 Urine Bilirubin Neg (Negative) 11/11/20 13:50 Urine Urobilinogen 2.0 mg/dL (<2.0) 11/11/20 13:50 Ur Leukocyte Esterase Lg (Negative) 11/11/20 13:50 Urine WBC (Auto) > 182.0 /HPF (0.0-6.0) H 11/11/20 13:50 Urine RBC (Auto) > 182.0 /HPF (0.0-6.0) 11/11/20 13:50 U Epithel Cells (Auto) 1.0 /HPF (0-13.0) 11/11/20 13:50 Urine Bacteria (Auto) 4+ /HPF (Negative) 11/11/20 13:50 Urine WBC Clumps 3+ /HPF 11/11/20 13:50 Calcium Oxalate Crystal Few 11/11/20 13:50 Urine Mucus Few /HPF 11/11/20 13:50 Vancomycin Trough 12.6 ug/mL (5.0-20.0) 10/21/20 13:54 Random Vancomycin 10.7 ug/mL (0-40.0) 10/16/20 13:09 Phenytoin 5.7 ug/mL (10.0-20.0) L 10/13/20 07:00 C. difficile Tox (PCR) Positive (Negative) 10/16/20 10:22 Coronavirus (PCR) Negative (Negative) 10/08/20 14:15 Blood Type O POSITIVE 10/02/20 12:50 Antibody Screen Negative 10/02/20 12:50 Crossmatch See Detail 10/02/20 12:50 - Diagnostic Impressions Diagnostic Impressions: Echocardiogram 10/03/20 13:42 Transthoracic Echocardiogram Indication: S/P Cardiac Arrest R/O Cardiomyopathy BP: 133/71 Conclusions *Global left ventricular systolic function is normal. *The estimated ejection fraction is 60-65%. *There is trace of mitral regurgitation. *The right 0heart chambers are both slightly dilated. *There is mild tricuspid regurgitation. *There is mild-moderate pulmonary hypertension. *The right ventricular systolic pressure is calculated at 44 mmHg. *The study quality is technically difficult. Findings Procedure Info: The study quality is technically difficult. The study is technically limited due to patient body habitus. The study was technically limited due to the patient's inability to lay in the left lateral decubitus position. Left Ventricle: The left ventricular chamber size is normal. There is no left ventricular hypertrophy. Global left ventricular systolic function is normal. The estimated ejection fraction is 60-65%. Left Atrium: The left atrial chamber size is normal. Right Ventricle: The right ventricle is slightly dilated. Right Atrium: The right atrium is mildly dilated. Aortic Valve: The aortic valve leaflets are mildly thickened. There is no evidence of aortic regurgitation. There is no evidence of aortic stenosis. Mitral Valve: The mitral valve leaflets are mildly thickened. There is trace of mitral regurgitation. There is no evidence of mitral stenosis. Tricuspid Valve: There is mild tricuspid regurgitation. The right ventricular systolic pressure is calculated at 44 mmHg. There is evidence of mild pulmonary hypertension. Pulmonic Valve: There is trace pulmonic regurgitation. Pericardium: There is no pericardial effusion. Aorta: There is no dilatation of the ascending aorta. There is no dilatation of the aortic root. Venous: The inferior vena cava is dilated. Measurements Chambers 2D Name Value Normal Range IVSd (2D) 1 cm (0.6 - 1.1) LVPWd (2D) 1.01 cm (0.6 - 1.1) LVIDd (2D) 4.58 cm (3.7 - 5.6) LVIDs (2D) 3.17 cm (2 - 3.8) LV FS (2D) 30.93 % - EF Teichholz (2D) 58.66 % - Ao root diameter (2D) 2.94 cm (2 - 3.7) Volumes/Mass Name Value Normal Range LA ESV SP 4CH (A/L) 72.82 ml - LA ESV SP 2CH (A/L) 66.86 ml - LA ESV BP (A/L) 74.49 ml - LA ESV SP 4CH (MOD) 71.03 ml - LA ESV SP 2CH (MOD) 64.3 ml - LV EDV SP 4CH (MOD) 98.82 ml - LV ESV SP 4CH (MOD) 24.8 ml - EF SP 4CH (MOD) 74.9 % - LV EDV SP 2CH (MOD) 86.1 ml - LV ESV SP 2CH (MOD) 36.93 ml - EF SP 2CH (MOD) 57.11 % - LV EDV BP 94.4 ml - LV ESV BP 32.66 ml - BP EF (MOD) 65.4 % - Diastolic/Systolic Function Name Value Normal Range MV E-wave Vmax 1.04 m/sec - MV deceleration time 160.46 msec - MV A-wave Vmax 0.92 m/sec - MV E:A ratio 1.14 ratio - Aortic Valve Name Value Normal Range AV Vmax 2.12 m/sec - AV VTI 22.37 cm - AV peak gradient 17.95 mmHg - AV mean gradient 7.29 mmHg - LVOT diameter 2.01 cm - LVOT Vmax 1.8 m/sec - LVOT VTI 27.17 cm - LVOT peak gradient 12.91 mmHg - LVOT mean gradient 6.83 mmHg - SV LVOT 86.42 ml - ANITA (continuity Vmax) 2.7 cm2 - ANITA (continuity VTI) 3.86 cm2 - Ascending Ao 3.18 cm - Tricuspid Valve Name Value Normal Range TV E-wave Vmax 0.88 m/sec - TR Vmax 3.01 m/sec - TR peak gradient 36.27 mmHg - RAP 8 mmHg - RVSP 44 mmHg - IVC diameter 2.65 cm (1.2 - 2.3) Pulmonic Valve/Qp:Qs Name Value Normal Range PV Vmax 1.22 m/sec - PV peak gradient 5.91 mmHg - RVOT Vmax 0.87 m/sec - RVOT VTI 13.32 cm - RVOT peak gradient 3 mmHg - PV acceleration time 110.37 msec - [place]/IV: Voiding Method External Female Catheter IV Catheter Type [Right Foot] INT / Saline Lock IV Catheter Type [Left Forearm Peripheral IV ] IV Catheter Type [Left Wrist] INT / Saline Lock IV Catheter Type [Right Hand] INT / Saline Lock IV Catheter Type [Right INT / Saline Lock Antecubital] IV Catheter Type [Right Upper Mid-line arm] IV Catheter Type [Left Triple Lumen Cath Internal Jugular] IV Catheter Type [Left Hand] Peripheral IV IV Catheter Type [Left Peripheral IV Antecubital] Active Medications - Current Medications Current Medications: Generic Name Dose Route Start Last Admin Trade Name Freq PRN Reason Stop Dose Admin Acetaminophen 650 mg 10/05/20 16:34 12/09/20 06:20 Acetaminophen 325 Mg/10.15 Ml Oral Liqd Unit Dose FEEDTUBE 650 mg Q6H PRN Administration Non Cardiac Pain or Temp>100.5 Albuterol 2.5 mg 11/05/20 13:03 11/06/20 13:04 Albuterol 2.5 Mg/3 Ml Nebu IH 2.5 mg Q4HRT PRN Administration Shortness Of Breath Lipase/Protease/Amylase 1 each 10/05/20 11:09 Lipase 10,500/Protease 25,000/Amylase 43,750 (Units) Dr Barakat FEEDTUBE PRN PRN For Clogged Feeding Tube Enoxaparin Sodium 40 mg 10/22/20 10:00 12/08/20 09:06 Enoxaparin 40 Mg/0.4 Ml Inj SUB-Q 40 mg DAILY ERINN Administration Protocol Famotidine 20 mg 10/07/20 10:00 12/08/20 23:12 Famotidine 20 Mg Tab PO 20 mg BID ERINN Administration Furosemide 40 mg 10/17/20 10:00 12/08/20 09:06 Furosemide 40 Mg Tab PO 40 mg QDAY ERINN Administration Hydralazine HCl 20 mg 10/07/20 11:49 10/17/20 07:20 Hydralazine 20 Mg/1 Ml Inj IV 20 mg Q6H PRN Administration SBP >170 Hydralazine HCl 50 mg 10/17/20 09:00 12/09/20 05:14 Hydralazine 25 Mg Tab PO 50 mg Q8HR ERINN Administration Labetalol HCl 300 mg 11/16/20 17:00 12/08/20 19:56 Labetalol 200 Mg Tab PO Not Given TID ERINN Simple Syrup 15 ml 10/05/20 11:09 Simple Syrup 15 Ml FEEDTUBE PRN PRN Hypoglycemia Simple Syrup 30 ml 10/05/20 11:09 Simple Syrup 15 Ml FEEDTUBE PRN PRN Hypoglycemia Sodium Bicarbonate 325 mg 10/05/20 11:09 11/24/20 11:51 Sodium Bicarbonate 325 Mg Tab FEEDTUBE 325 mg PRN PRN Administration For Clogged Feeding Tube Sodium Bicarbonate 1,300 mg 10/13/20 14:00 12/08/20 19:58 Sodium Bicarbonate 650 Mg Tab PO 1,300 mg TID ERINN Administration Nutrition/Malnutrition Assess - Dietary Evaluation Nutrition/Malnutrition Findings: Nutrition Notes Start: 10/04/20 11:13 Freq: Status: Active Protocol: Document 12/08/20 10:32 AT (Rec: 12/08/20 11:14 AT [id number]) Co-Sign 12/08/20 10:32 NHALL Nutrition Notes Initial or Follow up Reassessment Current Diagnosis Acute Kidney Injury, Respiratory Failure Other Pertinent Diagnosis C-Diff, Cardiac arrest, s/p c- section and supracervical hysterectomy, Brain Current Diet Jevity 1.2 at 60 mL/hr Labs/Tests No new labs Pertinent Medications Lasix Height 5 ft 8 in Weight 98.6 kg [place] Body Weight (kg) 63.63 BMI 33.0 Weight change and time frame Wt change noted, pt on Lasix Weight Status Obese Subjective/Other Information Follow up for TF tolerance. Observed TF running at goal rate. Per RN, pt is tolerating feeds without issue. Percent of energy/protein needs met: 81%/100% Burn Absent Trauma Absent GI Symptoms None Food Allergy Yes Current % PO Negligible Minimum of two criteria Yes Interpretation of Weight Loss (severe) >2% in 1 week Fluid Accumulation Mild (non-severe) #2 Nutrition Diagnosis Malnutrition Diagnosis Progress(for reassessment Continues documentation) #1 Nutrition Diagnosis Inadequate oral intake Diagnosis Progress(for reassessment Continues documentation) Is patient on ventilator? No Is Patient Ambulatory and/or Out of Bed No [facility] 2095.284 Kcal/Kg value to use for calculation 17 Approximate Energy Requirements Using 1676 kcal/Kg Calculation Used for Recommendations Kcal/kg Additional Notes PRO needs: 65-81 (0.8-1 g/kg AdBW 81kg) Fluid needs: 1 mL/kcal or per MD Nutrition Intervention Change Diet Order: Continue Nutrition Support: Jevity 1.2 at 60ml/hr. Flush 100ml q4h. Kcal 1,728 Protein (gm) 80 Fluid (mL) 1,162 Goal #1 TF tolerance Goal #2 Meet at least 75% of energy and protein needs Anticipated Discharge Needs: Unable to determine at this time Follow-Up By: 12/15/20 Additional Comments F/U for stable TF, weight
[2020-12-09] MEDS: ENOXAPARIN 40 MG/0.4 ML INJ SUB-Q SCH (09:18)
[2020-12-09] MEDS: FUROSEMIDE 40 MG TAB PO SCH (09:18)
[2020-12-09] MEDS: FAMOTIDINE 20 MG TAB PO SCH ×2 (09:18→22:35)
[2020-12-09] MEDS: SODIUM BICARBONATE 650 MG TAB PO SCH ×3 (09:19→22:34)
[2020-12-10] MEDS: ACETAMINOPHEN 325 MG/10.15 ML ORAL LIQD UNIT DOSE FEEDTUBE PRN ×2 (01:51→08:06)
[2020-12-10] MEDS: hydrALAZINE 25 MG TAB PO SCH ×3 (06:52→22:49)
[2020-12-10] MEDS: SODIUM BICARBONATE 650 MG TAB PO SCH ×3 (08:01→20:55)
--- NOTE | 2020-12-10 08:36 | Progress Note ---
Assessment and Plan Assessment and plan: -- Sepsis with presumed Pneumonia Teated with iv abx, follow Cx -Completed cefepime course 5 days on 10/09/2020 -Check MRSA culture -Start vancomycin p.o. empirically for C. difficile total 10 days, given diarrhea and worsening leukocytosis, --Acute respiratory failure with hypoxia Patient intubated Vent management per CC --DIC (disseminated intravascular coagulation) vs HELLP syndrome Has anemia,thrombocytopenia and elevated liver enzymes Patient received multiple units of RBCs, FFP's, cryo Hematology/oncology recommendations appreciated Continue to trend fibrinogen and INR Critical care on board --Possible Eclampsia/HELLP Syndrome Patient presented with seizure-->hypoxia-->urgent C section-->hysterectomy for severe bleeding/DIC developed severe anemia-->received RBC, plt, FFP, cryo was on max pressors-->now off pressors still on vent, on sedation Hematology following --s/p Cardiac arrest x2 on admission and on 10/07 ACLS protocol followed by revival Echo showed preserved Ef --Shock s/p pressor support Likely hypovolemic. on empirical antibiotics for possible sepsis. Continue to monitor blood pressure closely Trend H&H and transfuse as needed --Lactic acidosis As a result of poor organ perfusion and possible sepsis Continue IV hydration. Lactic acid is trending down Nephrology on board --ADOLPH As a result of hypoperfusion and shock Continue IV hydration Cr stable, follow BMP --DVT prophylaxis Patient presented with DIC No anticoagulants UTI -Was not present on admission -Diagnosed on 12/10/2020 The high probability of a clinically significant, sudden or life threatening deterioration of the [pulmonary] system(s) required my full and direct attention, intervention and personal management. The aggregate critical care time was [35] minutes. This time is in addition to time spent performing reported procedures but includes the following: [x] Data Review and interpretation [x] Patient assessment and monitoring of vital signs [x] Documentation [x] Medication orders and management brief History 30 year old -Gambian female CHE 10/25/20 at 36w5d who presents with seizures in triage on 10/02/20. Pt was not able to provide history but per pt's , she presented to the hospital to return a 24 hour urine specimen for analysis. She then suddenly reported that she did not feel good. She was taken to labor and delivery and shortly after arrival, she began seizing. During this time, a code met was called because the patient became hypoxic. She was then noted to be without a pulse. Chest compressions were started immediately, and the patient was emergently taken to the operating room for delivery of the fetus. Off note, This patient has had care at [facility] with comanagement by [facility] since 11 wks complicated by ADHD, morbid obesity, generalized anxiety disorder, panic attacks, chronic narcotic use, fibromyalgia, GERD, Irritable Bowel Syndrome, Migraines, h/o endometrial ablation and ovarian vein embolization, genital herpes, insomnia, LGA fetus, nausea and vomiting, polyhydramnios, quad screen positive for Down's Syndrome, and previous x 3. She is GBS negative. 11:30: Pt brought to L&D triage for evaluation of possible labor. Pt accompanied by her spouse. Pt spouse poor historian; unable to obtain history- allergies at this time. Pt taken from registration to triage area via WC. Pt unresponsive, actively seizing with snorous respirations. substance abuse services director, Kassy, called and requesting assistance. 11:35: Multiple staff at bedside. Pt 02 sat 67% on nonrebreather, unable to read BP at this time. Yifan Theodore CRNA, at bedside for intubation and assistance with IV insertion. INT attempt by multiple RNs unsuccessful at this time. 11:42: Pt being bagged by KORIN, 02% 79%. No pulse palpated, compressions started at this time; bharati young called and Dr. Newberry preparing OR for emergent c/s. 11:44: Continued compressions on stretcher while transporting pt to OR 1. Pt being bagged with jaw thrust manuever in place by KORIN Stringer student. 11:45: Arrival to OR 1. Dr. Newberry and Dr. Portillo present for emergent c/s. Code team arrived for continued care. patient revived and c/s done Patient has been bleeding from C/s site followed by supracervical hysterectomy for severe bleeding Patient transfused multiple units of PRBC, Patient in DIC. Transferred to the ICU 10/03. Patient seen and examined at bedside this morning. Patient is nonresponsive and mechanically ventilated. On pressors. Labs reviewed-has leukocytosis, anemia, thrombocytopenia, ADOLPH and lactic acidosis. Started on IV antibiotics to cover possible sepsis secondary to DIC. Hematology oncology recommendations appreciated-needs additional cryoprecipitate and FFP. Monitor D-dimer, fibrinogen and frequent labs. Nephrology consulted for lactic acidosis and ADOLPH. 10/04. Remains mechanically ventilated. Kevin antibiotics. Labs shows improved acidosis - lactic acid 3.5. Hb drop noted. Getting transfused 2 units PRBCs. Platelet count is ~40k. Continue to monitor labs closely. Critical care team on board. 10/05; xray reviewed, concerning for multifocal infilrate, likely underlying Pneumonia, will add ID consult to assist with management of this critically ill patient, start tube feed, closely monitor renal system 10/06: Resumed care, remains on mechanical ventilation. No active bleeding, H&H stable. Continue to monitor CBC and BMP. Continue IV antibiotic for underlying pneumonia. Follow critical care and ID recommendation. 10/07: Remains on mechanical ventilation. No active bleeding, H&H stable. Critical care following, wean off ventilation as tolerated. 10/08: Patient had another cardiac arrest last night. Remains on mechanical ventilation, update family. Continue supportive care -poor prognosis 10/09: Called patient mother and discussed about patient care and management. Answered all question to best of my knowledge and family satisfaction. Patient remains on mechanical ventilation, cardiac arrest x2 so far. Critically sick, poor prognosis 10/10: remains on mechanical ventilation. h/h stable, no active bleeding. monitor CBC/BMP 10/11: WBC trended up with diarrhea, started on vancomycin po. remains on MV, off pressor, tolerating TF 10/12: remains on MV, off pressor, tolerating TF. called family for update but unable to reach, could not leave message as it was full. cont supportive care, wean off vent as tolerated. 10/13/2020; patient is on mechanical ventilation, tolerating tube feeding. Patient has labored breathing. Neuro was consulted and recommend MRI. Patient is on Precedex. Rectal tube in place. 10/14/2020; patient is on mechanical ventilation, Precedex. Patient had fever and blood culture ordered. Patient is on IV vancomycin per ID recommendation. Neuro consulted and recommend MRI. Continue to monitor. Prognosis is guarded. 10/15/2020; patient is on mechanical ventilation, Precedex. Patient had fever and blood culture ordered. Patient is on IV vancomycin per ID recommendation. Neuro consulted and recommend MRI. Continue to monitor. Prognosis is guarded. 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 12/06/20; anoxic brain injury. Awaiting placement. 12/07/2020; anoxic brain injury, awaiting placement. 12/09/2020; anoxic brain injury, awaiting placement. 12/10/2020; patient had episodes of fever overnight. CBC, BMP, blood culture, UA and chest x-ray ordered, will follow and manage accordingly. Urinalysis is suggestive of UTI and I put the patient on ceftriaxone, order urine culture. Chest x-ray is normal. History Interval history: Patient was seen and evaluated this morning Patient is on 2L of oxygen via trach Patient is does not follow commands Patient had episodes of fever overnight Hospitalist Physical - Physical exam Narrative exam: vITAL SIGNS: Reviewed. GENERAL: On trach and PEG HEAD: No signs of head trauma. EYES: Pupils are equal. MOUTH: OT in place NECK: No adenopathy, no JVD. CHEST: Rales posteriorly CARDIAC: normal S1 and S2, without murmurs, gallops, or rubs. ABDOMEN: Soft, non tender and non distended. surgical wound in tact, No rebound or guarding, and no masses palpated. Bowel Sounds normal. MUSCULOSKELETAL: No edema NEUROLOGIC EXAM: Does not follow command SKIN: No obvious lesions - Constitutional Vitals: Temp Pulse Resp BP Pulse Ox 100.7 F H 108 H 20 123/86 99 12/10/20 08:00 12/10/20 08:00 12/10/20 08:00 12/10/20 08:00 12/10/20 08:00 General appearance: Present: no acute distress, well-nourished HEART Score - HEART Score Age: < 45 Risk factors: 1-2 risk factors - Critical Actions Critical Actions: >7 pts:50-65% risk of adverse cardiac event. Early invasive measures Results - Labs CBC & Chem 7: 12/10/20 09:37 12/10/20 09:37 Labs: Laboratory Last Values WBC 9.6 K/mm3 (4.5-11.0) 11/26/20 04:37 RBC 4.53 M/mm3 (3.65-5.03) 11/26/20 04:37 Hgb 12.5 gm/dl (10.1-14.3) 11/26/20 04:37 Hgb Comment See scanned result 10/04/20 Unknown Hct 37.1 % (30.3-42.9) 11/26/20 04:37 MCV 82 fl (79-97) 11/26/20 04:37 MCH 28 pg (28-32) 11/26/20 04:37 MCHC 34 % (30-34) 11/26/20 04:37 RDW 15.4 % (13.2-15.2) H 11/26/20 04:37 Plt Count 290 K/mm3 (140-440) 11/26/20 04:37 Lymph % (Auto) 18.9 % (13.4-35.0) 11/26/20 04:37 [place] % (Auto) 10.1 % (0.0-7.3) H 11/26/20 04:37 Eos % (Auto) 2.2 % (0.0-4.3) 11/26/20 04:37 Baso % (Auto) 0.4 % (0.0-1.8) 11/26/20 04:37 Lymph # (Auto) 1.8 K/mm3 (1.2-5.4) 11/26/20 04:37 [place] # (Auto) 1.0 K/mm3 (0.0-0.8) H 11/26/20 04:37 Eos # (Auto) 0.2 K/mm3 (0.0-0.4) 11/26/20 04:37 Baso # (Auto) 0.0 K/mm3 (0.0-0.1) 11/26/20 04:37 Add Manual Diff Complete 10/29/20 07:56 Total Counted 100 10/29/20 07:56 Seg Neutrophils % 68.4 % (40.0-70.0) 11/26/20 04:37 Seg Neuts % (Manual) 80.0 % (40.0-70.0) H 10/29/20 07:56 Band Neutrophils % 2.0 % 10/15/20 05:50 Lymphocytes % (Manual) 15.0 % (13.4-35.0) 10/29/20 07:56 Reactive Lymphs % (Man) 1.0 % 10/02/20 12:18 Monocytes % (Manual) 4.0 % (0.0-7.3) 10/29/20 07:56 Eosinophils % (Manual) 1.0 % (0.0-4.3) 10/29/20 07:56 Myelocytes % 2.0 % 10/02/20 13:05 Metamyelocytes % 1.0 % 10/14/20 04:00 Nucleated RBC % Not Reportable 10/29/20 07:56 Seg Neutrophils # 6.6 K/mm3 (1.8-7.7) 11/26/20 04:37 Seg Neutrophils # Man 10.9 K/mm3 (1.8-7.7) H 10/29/20 07:56 Band Neutrophils # 0.0 K/mm3 10/29/20 07:56 Lymphocytes # (Manual) 2.0 K/mm3 (1.2-5.4) 10/29/20 07:56 Abs React Lymphs (Man) 0.0 K/mm3 10/29/20 07:56 Monocytes # (Manual) 0.5 K/mm3 (0.0-0.8) 10/29/20 07:56 Eosinophils # (Manual) 0.1 K/mm3 (0.0-0.4) 10/29/20 07:56 Basophils # (Manual) 0.0 K/mm3 (0.0-0.1) 10/29/20 07:56 Metamyelocytes # 0.0 K/mm3 10/29/20 07:56 Myelocytes # 0.0 K/mm3 10/29/20 07:56 Promyelocytes # 0.0 K/mm3 10/29/20 07:56 Blast Cells # 0.0 K/mm3 10/29/20 07:56 WBC Morphology Not Reportable 10/29/20 07:56 Hypersegmented Neuts Not Reportable 10/29/20 07:56 Hyposegmented Neuts Not Reportable 10/29/20 07:56 Hypogranular Neuts Not Reportable 10/29/20 07:56 Smudge Cells Not Reportable 10/29/20 07:56 Toxic Granulation Not Reportable 10/29/20 07:56 Toxic Vacuolation Not Reportable 10/29/20 07:56 Dohle Bodies Not Reportable 10/29/20 07:56 Pelger-Huet Anomaly Not Reportable 10/29/20 07:56 Ester Rods Not Reportable 10/29/20 07:56 Platelet Estimate Consistent w auto 10/29/20 07:56 Clumped Platelets Not Reportable 10/29/20 07:56 Plt Clumps, EDTA Not Reportable 10/29/20 07:56 Large Platelets Few 10/29/20 07:56 Giant Platelets Not Reportable 10/29/20 07:56 Platelet Satelliting Not Reportable 10/29/20 07:56 Plt Morphology Comment Not Reportable 10/29/20 07:56 RBC Morphology Not Reportable 10/29/20 07:56 Dimorphic RBCs Not Reportable 10/29/20 07:56 Polychromasia Rare 10/29/20 07:56 Hypochromasia Few 10/29/20 07:56 Poikilocytosis Not Reportable 10/29/20 07:56 Anisocytosis Not Reportable 10/29/20 07:56 Microcytosis Not Reportable 10/29/20 07:56 Macrocytosis Not Reportable 10/29/20 07:56 Spherocytes Not Reportable 10/29/20 07:56 Pappenheimer Bodies Not Reportable 10/29/20 07:56 Sickle Cells Not Reportable 10/29/20 07:56 Target Cells Few 10/29/20 07:56 Tear Drop Cells Not Reportable 10/29/20 07:56 Ovalocytes Not Reportable 10/29/20 07:56 Stomatocytes Few 10/14/20 04:00 Helmet Cells Not Reportable 10/29/20 07:56 [place] Bodies Not Reportable 10/29/20 07:56 [place] Rings Not Reportable 10/29/20 07:56 Antoine Cells Not Reportable 10/29/20 07:56 Bite Cells Not Reportable 10/29/20 07:56 Crenated Cell Not Reportable 10/29/20 07:56 Elliptocytes Not Reportable 10/29/20 07:56 Acanthocytes (Spur) Not Reportable 10/29/20 07:56 Rouleaux Not Reportable 10/29/20 07:56 Hemoglobin C Crystals Not Reportable 10/29/20 07:56 Schistocytes Not Reportable 10/29/20 07:56 Malaria parasites Not Reportable 10/29/20 07:56 Sickle Cell Solubility See scanned result 10/04/20 Unknown Hemoglobin A See scanned result 10/04/20 Unknown Hemoglobin A2 See scanned result 10/04/20 Unknown Hemoglobin A2 Prime See scanned result 10/04/20 Unknown Hemoglobin C See scanned result 10/04/20 Unknown Hemoglobin D See scanned result 10/04/20 Unknown Hemoglobin E See scanned result 10/04/20 Unknown Hgb F Diffential Stain See scanned result 10/04/20 Unknown Hemoglobin F Quant See scanned result 10/04/20 Unknown Hemoglobin G See scanned result 10/04/20 Unknown Hemoglobin S See scanned result 10/04/20 Unknown Hemoglobin O-[place] See scanned result 10/04/20 Unknown Hemoglobin [place] See scanned result 10/04/20 Unknown Hemoglobin Analilia See scanned result 10/04/20 Unknown Variant Hemoglobin See scanned result 10/04/20 Unknown Abnorm Hgb IEF Confirm See scanned result 10/04/20 Unknown Hemoglobin Interpret See scanned result 10/04/20 Unknown Hemoglobinopathy Note See scanned result 10/04/20 Unknown Sharad Bodies Not Reportable 10/29/20 07:56 Hem Pathologist Commnt No 10/29/20 07:56 PT 13.6 Sec. (12.2-14.9) 10/21/20 13:54 INR 1.06 (0.87-1.13) 10/21/20 13:54 APTT 31.6 Sec. (24.2-36.6) 10/03/20 00:40 Fibrinogen 336 mg/dl (211-480) 10/04/20 10:00 D-Dimer 1974.47 ng/mlDDU (0-234) H 11/11/20 13:50 ABG pH 7.459 pH Units (7.350-7.450) H 10/26/20 10:30 POC ABG pCO2 20.7 mmHg (32.0-48.0) L 10/13/20 07:18 ABG pCO2 32.4 mm Hg 10/26/20 10:30 POC ABG pO2 137.9 mmHg (83-108) H 10/13/20 07:18 ABG pO2 112.2 mm Hg (80.0-90.0) H 10/26/20 10:30 POC ABG HCO3 14.8 10/13/20 07:18 ABG HCO3 22.5 mmol/L (20.0-26.0) 10/26/20 10:30 ABG O2 Saturation 98.2 % (95.0-99.0) 10/26/20 10:30 ABG O2 Content 18.5 (0.0-44) 10/26/20 10:30 POC ABG Base Excess -6.9 10/13/20 07:18 ABG Base Excess -0.6 mmol/L (-2.0-3.0) 10/26/20 10:30 ABG Hemoglobin 13.5 gm/dl (12.0-16.0) 10/26/20 10:30 ABG Oxyhemoglobin 98.3 (94-98) H 10/13/20 07:18 ABG Carboxyhemoglobin 1.3 % (0.0-5.0) 10/26/20 10:30 ABG Methemoglobin 0.5 % (0.0-1.5) 10/26/20 10:30 ABG Sodium 135.9 mmol/L (136.0-145.0) L 10/13/20 07:18 ABG Potassium 3.7 mmol/L (3.40-4.50) 10/13/20 07:18 ABG Chloride 111.0 mmol/L (98-107) H 10/13/20 07:18 ABG Glucose 109 mg/dL (65-95) H 10/13/20 07:18 VBG pH 6.949 (7.320-7.420) L* 10/02/20 Unknown Oxyhemoglobin 96.5 % (95.0-99.0) 10/26/20 10:30 Carboxyhemoglobin 0.3 (0.5-1.5) L 10/13/20 07:18 FiO2 25 % 10/26/20 10:30 Sodium 139 mmol/L (137-145) 11/26/20 04:37 Potassium 3.6 mmol/L (3.6-5.0) 11/26/20 04:37 Chloride 101.0 mmol/L (98-107) 11/26/20 04:37 Carbon Dioxide 26 mmol/L (22-30) 11/26/20 04:37 Anion Gap 16 mmol/L 11/26/20 04:37 BUN 9 mg/dL (7-17) 11/26/20 04:37 Creatinine 0.6 mg/dL (0.6-1.2) 11/26/20 04:37 Estimated GFR > 60 ml/min 11/26/20 04:37 BUN/Creatinine Ratio 15 % 11/26/20 04:37 Glucose 109 mg/dL (65-100) H 11/26/20 04:37 POC Glucose 98 mg/dL (70-105) 12/10/20 05:21 Random Insulin 43.2 uIU/mL (<=19.6) H 11/02/20 19:19 Proinsulin See scanned result 11/02/20 19:19 C-Peptide 6.23 ng/mL (0.80-3.85) H 11/02/20 19:19 Lactic Acid 1.90 mmol/L (0.7-2.0) 10/04/20 22:00 Uric Acid 7.5 mg/dL (3.5-7.6) 10/02/20 13:05 Calcium 9.5 mg/dL (8.4-10.2) 11/26/20 04:37 Ionized Calcium 4.4 mg/dL (4.8-5.6) L 10/07/20 21:00 Phosphorus 4.60 mg/dL (2.5-4.5) H 11/13/20 10:05 Magnesium 2.10 mg/dL (1.7-2.3) 11/13/20 10:05 Total Bilirubin 0.50 mg/dL (0.1-1.2) 11/26/20 04:37 AST 51 units/L (5-40) H 11/26/20 04:37 ALT 42 units/L (7-56) 11/26/20 04:37 Alkaline Phosphatase 117 units/L (35-129) 11/26/20 04:37 Lactate Dehydrogenase 769 units/L (91-180) H 10/02/20 13:05 C-Reactive Protein 0.70 mg/dL (0.00-1.30) 11/11/20 13:50 NT-Pro-B Natriuret Pep 2788 pg/mL (0-450) H 10/04/20 10:00 Total Protein 7.8 g/dL (6.3-8.2) 11/26/20 04:37 Albumin 3.9 g/dL (3.9-5) 11/26/20 04:37 Albumin/Globulin Ratio 1.0 % 11/26/20 04:37 Procalcitonin < 0.05 ng/mL (<0.15) 11/11/20 13:50 Arterial Blood Glucose 109 mg/dL (65-95) H 10/13/20 07:18 Arterial Blood Ionized Calcium 4.6 mg/dL (4.6-5.3) 10/13/20 07:18 Urine Color Yellow (Yellow) 11/11/20 13:50 Urine Turbidity Cloudy (Clear) 11/11/20 13:50 Urine pH 6.0 (5.0-7.0) 11/11/20 13:50 Ur Specific [place] 1.013 (1.003-1.030) 11/11/20 13:50 Urine Protein 100 mg/dl mg/dL (Negative) 11/11/20 13:50 Urine Glucose (UA) Neg mg/dL (Negative) 11/11/20 13:50 Urine Ketones Neg mg/dL (Negative) 11/11/20 13:50 Urine Blood Mod (Negative) 11/11/20 13:50 Urine Nitrite Pos (Negative) 11/11/20 13:50 Urine Bilirubin Neg (Negative) 11/11/20 13:50 Urine Urobilinogen 2.0 mg/dL (<2.0) 11/11/20 13:50 Ur Leukocyte Esterase Lg (Negative) 11/11/20 13:50 Urine WBC (Auto) > 182.0 /HPF (0.0-6.0) H 11/11/20 13:50 Urine RBC (Auto) > 182.0 /HPF (0.0-6.0) 11/11/20 13:50 U Epithel Cells (Auto) 1.0 /HPF (0-13.0) 11/11/20 13:50 Urine Bacteria (Auto) 4+ /HPF (Negative) 11/11/20 13:50 Urine WBC Clumps 3+ /HPF 11/11/20 13:50 Calcium Oxalate Crystal Few 11/11/20 13:50 Urine Mucus Few /HPF 11/11/20 13:50 Vancomycin Trough 12.6 ug/mL (5.0-20.0) 10/21/20 13:54 Random Vancomycin 10.7 ug/mL (0-40.0) 10/16/20 13:09 Phenytoin 5.7 ug/mL (10.0-20.0) L 10/13/20 07:00 C. difficile Tox (PCR) Positive (Negative) 10/16/20 10:22 Coronavirus (PCR) Negative (Negative) 10/08/20 14:15 Blood Type O POSITIVE 10/02/20 12:50 Antibody Screen Negative 10/02/20 12:50 Crossmatch See Detail 10/02/20 12:50 - Diagnostic Impressions Diagnostic Impressions: Echocardiogram 10/03/20 13:42 Transthoracic Echocardiogram Indication: S/P Cardiac Arrest R/O Cardiomyopathy BP: 133/71 Conclusions *Global left ventricular systolic function is normal. *The estimated ejection fraction is 60-65%. *There is trace of mitral regurgitation. *The right 0heart chambers are both slightly dilated. *There is mild tricuspid regurgitation. *There is mild-moderate pulmonary hypertension. *The right ventricular systolic pressure is calculated at 44 mmHg. *The study quality is technically difficult. Findings Procedure Info: The study quality is technically difficult. The study is technically limited due to patient body habitus. The study was technically limited due to the patient's inability to lay in the left lateral decubitus position. Left Ventricle: The left ventricular chamber size is normal. There is no left ventricular hypertrophy. Global left ventricular systolic function is normal. The estimated ejection fraction is 60-65%. Left Atrium: The left atrial chamber size is normal. Right Ventricle: The right ventricle is slightly dilated. Right Atrium: The right atrium is mildly dilated. Aortic Valve: The aortic valve leaflets are mildly thickened. There is no evidence of aortic regurgitation. There is no evidence of aortic stenosis. Mitral Valve: The mitral valve leaflets are mildly thickened. There is trace of mitral regurgitation. There is no evidence of mitral stenosis. Tricuspid Valve: There is mild tricuspid regurgitation. The right ventricular systolic pressure is calculated at 44 mmHg. There is evidence of mild pulmonary hypertension. Pulmonic Valve: There is trace pulmonic regurgitation. Pericardium: There is no pericardial effusion. Aorta: There is no dilatation of the ascending aorta. There is no dilatation of the aortic root. Venous: The inferior vena cava is dilated. Measurements Chambers 2D Name Value Normal Range IVSd (2D) 1 cm (0.6 - 1.1) LVPWd (2D) 1.01 cm (0.6 - 1.1) LVIDd (2D) 4.58 cm (3.7 - 5.6) LVIDs (2D) 3.17 cm (2 - 3.8) LV FS (2D) 30.93 % - EF Teichholz (2D) 58.66 % - Ao root diameter (2D) 2.94 cm (2 - 3.7) Volumes/Mass Name Value Normal Range LA ESV SP 4CH (A/L) 72.82 ml - LA ESV SP 2CH (A/L) 66.86 ml - LA ESV BP (A/L) 74.49 ml - LA ESV SP 4CH (MOD) 71.03 ml - LA ESV SP 2CH (MOD) 64.3 ml - LV EDV SP 4CH (MOD) 98.82 ml - LV ESV SP 4CH (MOD) 24.8 ml - EF SP 4CH (MOD) 74.9 % - LV EDV SP 2CH (MOD) 86.1 ml - LV ESV SP 2CH (MOD) 36.93 ml - EF SP 2CH (MOD) 57.11 % - LV EDV BP 94.4 ml - LV ESV BP 32.66 ml - BP EF (MOD) 65.4 % - Diastolic/Systolic Function Name Value Normal Range MV E-wave Vmax 1.04 m/sec - MV deceleration time 160.46 msec - MV A-wave Vmax 0.92 m/sec - MV E:A ratio 1.14 ratio - Aortic Valve Name Value Normal Range AV Vmax 2.12 m/sec - AV VTI 22.37 cm - AV peak gradient 17.95 mmHg - AV mean gradient 7.29 mmHg - LVOT diameter 2.01 cm - LVOT Vmax 1.8 m/sec - LVOT VTI 27.17 cm - LVOT peak gradient 12.91 mmHg - LVOT mean gradient 6.83 mmHg - SV LVOT 86.42 ml - ANITA (continuity Vmax) 2.7 cm2 - ANITA (continuity VTI) 3.86 cm2 - Ascending Ao 3.18 cm - Tricuspid Valve Name Value Normal Range TV E-wave Vmax 0.88 m/sec - TR Vmax 3.01 m/sec - TR peak gradient 36.27 mmHg - RAP 8 mmHg - RVSP 44 mmHg - IVC diameter 2.65 cm (1.2 - 2.3) Pulmonic Valve/Qp:Qs Name Value Normal Range PV Vmax 1.22 m/sec - PV peak gradient 5.91 mmHg - RVOT Vmax 0.87 m/sec - RVOT VTI 13.32 cm - RVOT peak gradient 3 mmHg - PV acceleration time 110.37 msec - [place]/IV: Voiding Method External Female Catheter IV Catheter Type [Right Foot] INT / Saline Lock IV Catheter Type [Left Forearm Peripheral IV ] IV Catheter Type [Left Wrist] INT / Saline Lock IV Catheter Type [Right Hand] INT / Saline Lock IV Catheter Type [Right INT / Saline Lock Antecubital] IV Catheter Type [Right Upper Mid-line arm] IV Catheter Type [Left Triple Lumen Cath Internal Jugular] IV Catheter Type [Left Hand] Peripheral IV IV Catheter Type [Left Peripheral IV Antecubital] Active Medications - Current Medications Current Medications: Generic Name Dose Route Start Last Admin Trade Name Freq PRN Reason Stop Dose Admin Acetaminophen 650 mg 10/05/20 16:34 12/10/20 08:06 Acetaminophen 325 Mg/10.15 Ml Oral Liqd Unit Dose FEEDTUBE 650 mg Q6H PRN Administration Non Cardiac Pain or Temp>100.5 Albuterol 2.5 mg 11/05/20 13:03 11/06/20 13:04 Albuterol 2.5 Mg/3 Ml Nebu IH 2.5 mg Q4HRT PRN Administration Shortness Of Breath Lipase/Protease/Amylase 1 each 10/05/20 11:09 Lipase 10,500/Protease 25,000/Amylase 43,750 (Units) Dr Barakat FEEDTUBE PRN PRN For Clogged Feeding Tube Enoxaparin Sodium 40 mg 10/22/20 10:00 12/09/20 09:18 Enoxaparin 40 Mg/0.4 Ml Inj SUB-Q 40 mg DAILY ERINN Administration Protocol Famotidine 20 mg 10/07/20 10:00 12/09/20 22:35 Famotidine 20 Mg Tab PO 20 mg BID ERINN Administration Furosemide 40 mg 10/17/20 10:00 12/09/20 09:18 Furosemide 40 Mg Tab PO 40 mg QDAY ERINN Administration Hydralazine HCl 20 mg 10/07/20 11:49 10/17/20 07:20 Hydralazine 20 Mg/1 Ml Inj IV 20 mg Q6H PRN Administration SBP >170 Hydralazine HCl 50 mg 10/17/20 09:00 12/10/20 06:52 Hydralazine 25 Mg Tab PO 50 mg Q8HR ERINN Administration Labetalol HCl 300 mg 11/16/20 17:00 12/10/20 08:01 Labetalol 200 Mg Tab PO 300 mg TID ERINN Administration Simple Syrup 15 ml 10/05/20 11:09 Simple Syrup 15 Ml FEEDTUBE PRN PRN Hypoglycemia Simple Syrup 30 ml 10/05/20 11:09 Simple Syrup 15 Ml FEEDTUBE PRN PRN Hypoglycemia Sodium Bicarbonate 325 mg 10/05/20 11:09 11/24/20 11:51 Sodium Bicarbonate 325 Mg Tab FEEDTUBE 325 mg PRN PRN Administration For Clogged Feeding Tube Sodium Bicarbonate 1,300 mg 10/13/20 14:00 12/10/20 08:01 Sodium Bicarbonate 650 Mg Tab PO 1,300 mg TID ERINN Administration Nutrition/Malnutrition Assess - Dietary Evaluation Nutrition/Malnutrition Findings: Nutrition Notes Start: 10/04/20 11: 13 Freq: Status: Active Protocol: Document 12/08/20 10:32 AT (Rec: 12/08/20 11:14 AT [id number]) Co-Sign 12/08/20 10:32 NHALL Nutrition Notes Initial or Follow up Reassessment Current Diagnosis Acute Kidney Injury, Respiratory Failure Other Pertinent Diagnosis C-Diff, Cardiac arrest, s/p c- section and supracervical hysterectomy, Brain Current Diet Jevity 1.2 at 60 mL/hr Labs/Tests No new labs Pertinent Medications Lasix Height 5 ft 8 in Weight 98.6 kg [place] Body Weight (kg) 63.63 BMI 33.0 Weight change and time frame Wt change noted, pt on Lasix Weight Status Obese Subjective/Other Information Follow up for TF tolerance. Observed TF running at goal rate. Per RN, pt is tolerating feeds without issue. Percent of energy/protein needs met: 81%/100% Burn Absent Trauma Absent GI Symptoms None Food Allergy Yes Current % PO Negligible Minimum of two criteria Yes Interpretation of Weight Loss (severe) >2% in 1 week Fluid Accumulation Mild (non-severe) #2 Nutrition Diagnosis Malnutrition Diagnosis Progress(for reassessment Continues documentation) #1 Nutrition Diagnosis Inadequate oral intake Diagnosis Progress(for reassessment Continues documentation) Is patient on ventilator? No Is Patient Ambulatory and/or Out of Bed No REE-([facility]-confined to bed) 3765.284 Kcal/Kg value to use for calculation 17 Approximate Energy Requirements Using 1676 kcal/Kg Calculation Used for Recommendations Kcal/kg Additional Notes PRO needs: 65-81 (0.8-1 g/kg AdBW 81kg) Fluid needs: 1 mL/kcal or per MD Nutrition Intervention Change Diet Order: Continue Nutrition Support: Jevity 1.2 at 60ml/hr. Flush 100ml q4h. Kcal 1,728 Protein (gm) 80 Fluid (mL) 1,162 Goal #1 TF tolerance Goal #2 Meet at least 75% of energy and protein needs Anticipated Discharge Needs: Unable to determine at this time Follow-Up By: 12/15/20 Additional Comments F/U for stable TF, weight
[2020-12-10] MEDS: ENOXAPARIN 40 MG/0.4 ML INJ SUB-Q SCH (09:19)
[2020-12-10] MEDS: FUROSEMIDE 40 MG TAB PO SCH (09:19)
[2020-12-10] MEDS: FAMOTIDINE 20 MG TAB PO SCH ×2 (09:19→22:50)
--- NOTE | 2020-12-10 09:22 | XRay Report ---
CHEST 1 VIEW 12/10/2020 8:50 AM INDICATION / CLINICAL INFORMATION: fever. COMPARISON: 10/21/2020 FINDINGS: SUPPORT DEVICES: Tracheostomy is satisfactory in position HEART / MEDIASTINUM: No significant abnormality. LUNGS / PLEURA: No significant pulmonary or pleural abnormality. No pneumothorax. ADDITIONAL FINDINGS: No significant additional findings. IMPRESSION: 1. No acute findings. Signer Name: Abebe Ontiveros MD Signed: 12/10/2020 9:18 AM Workstation Name: [id number]
[2020-12-10 09:53] LABS: Hematocrit 37.5 % (30.3-42.9); Hemoglobin 12.1 gm/dl (10.1-14.3); Mean Corpuscular HGB Conc 32 % (30-34); Mean Corpuscular Volume 79 fl (79-97); Platelet Count 370 K/mm3 (140-440); Red Blood Count 4.73 M/mm3 (3.65-5.03); Red Cell Distribution Width 14.8 % (13.2-15.2)
[2020-12-10 10:09] LABS: Blood Urea Nitrogen 19 mg/dL (7-17); Calcium 9.8 mg/dL (8.4-10.2); Hemolysis Index 6
[2020-12-10 10:09] LABS: Bilirubin,Urine NEG (Negative); Blood,Urine SM (Negative); Color,Urine Amber (Yellow)
[2020-12-10 10:29] LABS: BUN/Creatinine Ratio 27
[2020-12-10] MEDS ORDERED: cefTRIAXone/NS 1 GM/50 ML 1 GM/50 ML BAG IV SCH (12:00)
[2020-12-10] MEDS: cefTRIAXone/NS 1 GM/50 ML 1 GM/50 ML BAG IV SCH (13:24)
[2020-12-10 14:20] LABS: Total Cells Counted 100
[2020-12-10 14:21] LABS: Hypochromasia 1+; Platelet Estimate Consistent w Auto; RBC Morphology Normal
[2020-12-11] MEDS: hydrALAZINE 25 MG TAB PO SCH (05:32)
[2020-12-11] MEDS: SODIUM BICARBONATE 650 MG TAB PO SCH ×4 (08:30→20:54)
--- NOTE | 2020-12-11 09:53 | Progress Note ---
Assessment and Plan Assessment and plan: -- Sepsis with presumed Pneumonia Teated with iv abx, follow Cx -Completed cefepime course 5 days on 10/09/2020 -Check MRSA culture -Start vancomycin p.o. empirically for C. difficile total 10 days, given diarrhea and worsening leukocytosis, --Acute respiratory failure with hypoxia Patient intubated Vent management per CC --DIC (disseminated intravascular coagulation) vs HELLP syndrome Has anemia,thrombocytopenia and elevated liver enzymes Patient received multiple units of RBCs, FFP's, cryo Hematology/oncology recommendations appreciated Continue to trend fibrinogen and INR Critical care on board --Possible Eclampsia/HELLP Syndrome Patient presented with seizure-->hypoxia-->urgent C section-->hysterectomy for severe bleeding/DIC developed severe anemia-->received RBC, plt, FFP, cryo was on max pressors-->now off pressors still on vent, on sedation Hematology following --s/p Cardiac arrest x2 on admission and on 10/07 ACLS protocol followed by revival Echo showed preserved Ef --Shock s/p pressor support Likely hypovolemic. on empirical antibiotics for possible sepsis. Continue to monitor blood pressure closely Trend H&H and transfuse as needed --Lactic acidosis As a result of poor organ perfusion and possible sepsis Continue IV hydration. Lactic acid is trending down Nephrology on board --ADOLPH As a result of hypoperfusion and shock Continue IV hydration Cr stable, follow BMP --DVT prophylaxis Patient presented with DIC No anticoagulants UTI -Was not present on admission -Diagnosed on 12/10/2020 The high probability of a clinically significant, sudden or life threatening deterioration of the [pulmonary] system(s) required my full and direct attention, intervention and personal management. The aggregate critical care time was [35] minutes. This time is in addition to time spent performing reported procedures but includes the following: [x] Data Review and interpretation [x] Patient assessment and monitoring of vital signs [x] Documentation [x] Medication orders and management brief History 30 year old -[place] female CHE 10/25/20 at 36w5d who presents with seizures in triage on 10/02/20. Pt was not able to provide history but per pt's , she presented to the hospital to return a 24 hour urine specimen for analysis. She then suddenly reported that she did not feel good. She was taken to labor and delivery and shortly after arrival, she began seizing. During this time, a code met was called because the patient became hypoxic. She was then noted to be without a pulse. Chest compressions were started immediately, and the patient was emergently taken to the operating room for delivery of the fetus. Off note, This patient has had care at [facility] with comanagement by [facility] since 11 wks complicated by ADHD, morbid obesity, generalized anxiety disorder, panic attacks, chronic narcotic use, fibromyalgia, GERD, Irritable Bowel Syndrome, Migraines, h/o endometrial ablation and ovarian vein embolization, genital herpes, insomnia, LGA fetus, nausea and vomiting, polyhydramnios, quad screen positive for Down's Syndrome, and previous x 3. She is GBS negative. 11:30: Pt brought to L&D triage for evaluation of possible labor. Pt accompanied by her spouse. Pt spouse poor historian; unable to obtain history- allergies at this time. Pt taken from registration to triage area via WC. Pt unresponsive, actively seizing with snorous respirations. plsql developer, Kassy, called and requesting assistance. 11:35: Multiple staff at bedside. Pt 02 sat 67% on nonrebreather, unable to read BP at this time. Yifan Theodore CRNA, at bedside for intubation and assistance with IV insertion. INT attempt by multiple RNs unsuccessful at this time. 11:42: Pt being bagged by KORIN, 02% 79%. No pulse palpated, compressions started at this time; bharati young called and Dr. Newberry preparing OR for emergent c/s. 11:44: Continued compressions on stretcher while transporting pt to OR 1. Pt being bagged with jaw thrust manuever in place by KORIN Stringer student. 11:45: Arrival to OR 1. Dr. Newberry and Dr. Portillo present for emergent c/s. Code team arrived for continued care. patient revived and c/s done Patient has been bleeding from C/s site followed by supracervical hysterectomy for severe bleeding Patient transfused multiple units of PRBC, Patient in DIC. Transferred to the ICU 10/03. Patient seen and examined at bedside this morning. Patient is nonresponsive and mechanically ventilated. On pressors. Labs reviewed-has leukocytosis, anemia, thrombocytopenia, ADOPLH and lactic acidosis. Started on IV antibiotics to cover possible sepsis secondary to DIC. Hematology oncology recommendations appreciated-needs additional cryoprecipitate and FFP. Monitor D-dimer, fibrinogen and frequent labs. Nephrology consulted for lactic acidosis and ADOLPH. 10/04. Remains mechanically ventilated. Kevin antibiotics. Labs shows improved acidosis - lactic acid 3.5. Hb drop noted. Getting transfused 2 units PRBCs. Platelet count is ~40k. Continue to monitor labs closely. Critical care team on board. 10/05; xray reviewed, concerning for multifocal infilrate, likely underlying Pneumonia, will add ID consult to assist with management of this critically ill patient, start tube feed, closely monitor renal system 10/06: Resumed care, remains on mechanical ventilation. No active bleeding, H&H stable. Continue to monitor CBC and BMP. Continue IV antibiotic for underlying pneumonia. Follow critical care and ID recommendation. 10/07: Remains on mechanical ventilation. No active bleeding, H&H stable. Critical care following, wean off ventilation as tolerated. 10/08: Patient had another cardiac arrest last night. Remains on mechanical ventilation, update family. Continue supportive care -poor prognosis 10/09: Called patient mother and discussed about patient care and management. Answered all question to best of my knowledge and family satisfaction. Patient remains on mechanical ventilation, cardiac arrest x2 so far. Critically sick, poor prognosis 10/10: remains on mechanical ventilation. h/h stable, no active bleeding. monitor CBC/BMP 10/11: WBC trended up with diarrhea, started on vancomycin po. remains on MV, off pressor, tolerating TF 10/12: remains on MV, off pressor, tolerating TF. called family for update but unable to reach, could not leave message as it was full. cont supportive care, wean off vent as tolerated. 10/13/2020; patient is on mechanical ventilation, tolerating tube feeding. Patient has labored breathing. Neuro was consulted and recommend MRI. Patient is on Precedex. Rectal tube in place. 10/14/2020; patient is on mechanical ventilation, Precedex. Patient had fever and blood culture ordered. Patient is on IV vancomycin per ID recommendation. Neuro consulted and recommend MRI. Continue to monitor. Prognosis is guarded. 10/15/2020; patient is on mechanical ventilation, Precedex. Patient had fever and blood culture ordered. Patient is on IV vancomycin per ID recommendation. Neuro consulted and recommend MRI. Continue to monitor. Prognosis is guarded. 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 12/06/20; anoxic brain injury. Awaiting placement. 12/07/2020; anoxic brain injury, awaiting placement. 12/09/2020; anoxic brain injury, awaiting placement. 12/10/2020; patient had episodes of fever overnight. CBC, BMP, blood culture, UA and chest x-ray ordered, will follow and manage accordingly. Urinalysis is suggestive of UTI and I put the patient on ceftriaxone, order urine culture. Chest x-ray is normal. 12/11/2020; patient is on ceftriaxone day 2 for UTI. We will continue to follow urine culture. History Interval history: Patient was seen and evaluated this morning Patient is on 2L of oxygen via trach Patient is does not follow commands Temp was 99.9 overnight Hospitalist Physical - Physical exam Narrative exam: vITAL SIGNS: Reviewed. GENERAL: On trach and PEG HEAD: No signs of head trauma. EYES: Pupils are equal. MOUTH: OT in place NECK: No adenopathy, no JVD. CHEST: Rales posteriorly CARDIAC: normal S1 and S2, without murmurs, gallops, or rubs. ABDOMEN: Soft, non tender and non distended. surgical wound in tact, No rebound or guarding, and no masses palpated. Bowel Sounds normal. MUSCULOSKELETAL: No edema NEUROLOGIC EXAM: Does not follow command SKIN: No obvious lesions - Constitutional Vitals: Temp Pulse Resp BP Pulse Ox 99.9 F H 114 H 14 109/75 98 12/11/20 08:00 12/11/20 09:26 12/11/20 07:00 12/11/20 07:00 12/11/20 08:02 General appearance: Present: no acute distress, well-nourished HEART Score - HEART Score Age: < 45 Risk factors: 1-2 risk factors - Critical Actions Critical Actions: >7 pts:50-65% risk of adverse cardiac event. Early invasive measures Results - Labs CBC & Chem 7: 12/10/20 09:37 12/10/20 09:37 Labs: Laboratory Last Values WBC 12.5 K/mm3 (4.5-11.0) H 12/10/20 09:37 RBC 4.73 M/mm3 (3.65-5.03) 12/10/20 09:37 Hgb 12.1 gm/dl (10.1-14.3) 12/10/20 09:37 Hgb Comment See scanned result 10/04/20 Unknown Hct 37.5 % (30.3-42.9) 12/10/20 09:37 MCV 79 fl (79-97) 12/10/20 09:37 MCH 26 pg (28-32) L 12/10/20 09:37 MCHC 32 % (30-34) 12/10/20 09:37 RDW 14.8 % (13.2-15.2) 12/10/20 09:37 Plt Count 370 K/mm3 (140-440) 12/10/20 09:37 Lymph % (Auto) 18.9 % (13.4-35.0) 11/26/20 04:37 [place] % (Auto) 10.1 % (0.0-7.3) H 11/26/20 04:37 Eos % (Auto) 2.2 % (0.0-4.3) 11/26/20 04:37 Baso % (Auto) 0.4 % (0.0-1.8) 11/26/20 04:37 Lymph # (Auto) 1.8 K/mm3 (1.2-5.4) 11/26/20 04:37 [place] # (Auto) 1.0 K/mm3 (0.0-0.8) H 11/26/20 04:37 Eos # (Auto) 0.2 K/mm3 (0.0-0.4) 11/26/20 04:37 Baso # (Auto) 0.0 K/mm3 (0.0-0.1) 11/26/20 04:37 Add Manual Diff Complete 12/10/20 09:37 Total Counted 100 12/10/20 09:37 Seg Neutrophils % 68.4 % (40.0-70.0) 11/26/20 04:37 Seg Neuts % (Manual) 81.0 % (40.0-70.0) H 12/10/20 09:37 Band Neutrophils % 2.0 % 10/15/20 05:50 Lymphocytes % (Manual) 17.0 % (13.4-35.0) 12/10/20 09:37 Reactive Lymphs % (Man) 1.0 % 10/02/20 12:18 Monocytes % (Manual) 2.0 % (0.0-7.3) 12/10/20 09:37 Eosinophils % (Manual) 1.0 % (0.0-4.3) 10/29/20 07:56 Myelocytes % 2.0 % 10/02/20 13:05 Metamyelocytes % 1.0 % 10/14/20 04:00 Nucleated RBC % Not Reportable 12/10/20 09:37 Seg Neutrophils # 6.6 K/mm3 (1.8-7.7) 11/26/20 04:37 Seg Neutrophils # Man 10.1 K/mm3 (1.8-7.7) H 12/10/20 09:37 Band Neutrophils # 0.0 K/mm3 12/10/20 09:37 Lymphocytes # (Manual) 2.1 K/mm3 (1.2-5.4) 12/10/20 09:37 Abs React Lymphs (Man) 0.0 K/mm3 12/10/20 09:37 Monocytes # (Manual) 0.3 K/mm3 (0.0-0.8) 12/10/20 09:37 Eosinophils # (Manual) 0.0 K/mm3 (0.0-0.4) 12/10/20 09:37 Basophils # (Manual) 0.0 K/mm3 (0.0-0.1) 12/10/20 09:37 Metamyelocytes # 0.0 K/mm3 12/10/20 09:37 Myelocytes # 0.0 K/mm3 12/10/20 09:37 Promyelocytes # 0.0 K/mm3 12/10/20 09:37 Blast Cells # 0.0 K/mm3 12/10/20 09:37 WBC Morphology Not Reportable 12/10/20 09:37 Hypersegmented Neuts Not Reportable 12/10/20 09:37 Hyposegmented Neuts Not Reportable 12/10/20 09:37 Hypogranular Neuts Not Reportable 12/10/20 09:37 Smudge Cells Not Reportable 12/10/20 09:37 Toxic Granulation Not Reportable 12/10/20 09:37 Toxic Vacuolation Not Reportable 12/10/20 09:37 Dohle Bodies Not Reportable 12/10/20 09:37 Pelger-Huet Anomaly Not Reportable 12/10/20 09:37 Ester Rods Not Reportable 12/10/20 09:37 Platelet Estimate Consistent w auto 12/10/20 09:37 Clumped Platelets Not Reportable 12/10/20 09:37 Plt Clumps, EDTA Not Reportable 12/10/20 09:37 Large Platelets Not Reportable 12/10/20 09:37 Giant Platelets Not Reportable 12/10/20 09:37 Platelet Satelliting Not Reportable 12/10/20 09:37 Plt Morphology Comment Not Reportable 12/10/20 09:37 RBC Morphology Normal 12/10/20 09:37 Dimorphic RBCs Not Reportable 12/10/20 09:37 Polychromasia Not Reportable 12/10/20 09:37 Hypochromasia 1+ 12/10/20 09:37 Poikilocytosis Not Reportable 12/10/20 09:37 Anisocytosis Not Reportable 12/10/20 09:37 Microcytosis Not Reportable 12/10/20 09:37 Macrocytosis Not Reportable 12/10/20 09:37 Spherocytes Not Reportable 12/10/20 09:37 Pappenheimer Bodies Not Reportable 12/10/20 09:37 Sickle Cells Not Reportable 12/10/20 09:37 Target Cells Not Reportable 12/10/20 09:37 Tear Drop Cells Not Reportable 12/10/20 09:37 Ovalocytes Not Reportable 12/10/20 09:37 Stomatocytes Few 10/14/20 04:00 Helmet Cells Not Reportable 12/10/20 09:37 [place] Bodies Not Reportable 12/10/20 09:37 [place] Rings Not Reportable 12/10/20 09:37 Antoine Cells Not Reportable 12/10/20 09:37 Bite Cells Not Reportable 12/10/20 09:37 Crenated Cell Not Reportable 12/10/20 09:37 Elliptocytes Not Reportable 12/10/20 09:37 Acanthocytes (Spur) Not Reportable 12/10/20 09:37 Rouleaux Not Reportable 12/10/20 09:37 Hemoglobin C Crystals Not Reportable 12/10/20 09:37 Schistocytes Not Reportable 12/10/20 09:37 Malaria parasites Not Reportable 12/10/20 09:37 Sickle Cell Solubility See scanned result 10/04/20 Unknown Hemoglobin A See scanned result 10/04/20 Unknown Hemoglobin A2 See scanned result 10/04/20 Unknown Hemoglobin A2 Prime See scanned result 10/04/20 Unknown Hemoglobin C See scanned result 10/04/20 Unknown Hemoglobin D See scanned result 10/04/20 Unknown Hemoglobin E See scanned result 10/04/20 Unknown Hgb F Diffential Stain See scanned result 10/04/20 Unknown Hemoglobin F Quant See scanned result 10/04/20 Unknown Hemoglobin G See scanned result 10/04/20 Unknown Hemoglobin S See scanned result 10/04/20 Unknown Hemoglobin [place] See scanned result 10/04/20 Unknown Hemoglobin [place] See scanned result 10/04/20 Unknown Hemoglobin Analilia See scanned result 10/04/20 Unknown Variant Hemoglobin See scanned result 10/04/20 Unknown Abnorm Hgb IEF Confirm See scanned result 10/04/20 Unknown Hemoglobin Interpret See scanned result 10/04/20 Unknown Hemoglobinopathy Note See scanned result 10/04/20 Unknown Sharad Bodies Not Reportable 12/10/20 09:37 Hem Pathologist Commnt No 12/10/20 09:37 PT 13.6 Sec. (12.2-14.9) 10/21/20 13:54 INR 1.06 (0.87-1.13) 10/21/20 13:54 APTT 31.6 Sec. (24.2-36.6) 10/03/20 00:40 Fibrinogen 336 mg/dl (211-480) 10/04/20 10:00 D-Dimer 1974.47 ng/mlDDU (0-234) H 11/11/20 13:50 ABG pH 7.459 pH Units (7.350-7.450) H 10/26/20 10:30 POC ABG pCO2 20.7 mmHg (32.0-48.0) L 10/13/20 07:18 ABG pCO2 32.4 mm Hg 10/26/20 10:30 POC ABG pO2 137.9 mmHg (83-108) H 10/13/20 07:18 ABG pO2 112.2 mm Hg (80.0-90.0) H 10/26/20 10:30 POC ABG HCO3 14.8 10/13/20 07:18 ABG HCO3 22.5 mmol/L (20.0-26.0) 10/26/20 10:30 ABG O2 Saturation 98.2 % (95.0-99.0) 10/26/20 10:30 ABG O2 Content 18.5 (0.0-44) 10/26/20 10:30 POC ABG Base Excess -6.9 10/13/20 07:18 ABG Base Excess -0.6 mmol/L (-2.0-3.0) 10/26/20 10:30 ABG Hemoglobin 13.5 gm/dl (12.0-16.0) 10/26/20 10:30 ABG Oxyhemoglobin 98.3 (94-98) H 10/13/20 07:18 ABG Carboxyhemoglobin 1.3 % (0.0-5.0) 10/26/20 10:30 ABG Methemoglobin 0.5 % (0.0-1.5) 10/26/20 10:30 ABG Sodium 135.9 mmol/L (136.0-145.0) L 10/13/20 07:18 ABG Potassium 3.7 mmol/L (3.40-4.50) 10/13/20 07:18 ABG Chloride 111.0 mmol/L (98-107) H 10/13/20 07:18 ABG Glucose 109 mg/dL (65-95) H 10/13/20 07:18 VBG pH 6.949 (7.320-7.420) L* 10/02/20 Unknown Oxyhemoglobin 96.5 % (95.0-99.0) 10/26/20 10:30 Carboxyhemoglobin 0.3 (0.5-1.5) L 10/13/20 07:18 FiO2 25 % 10/26/20 10:30 Sodium 149 mmol/L (137-145) H 12/10/20 09:37 Potassium 3.8 mmol/L (3.6-5.0) 12/10/20 09:37 Chloride 109.9 mmol/L (98-107) H 12/10/20 09:37 Carbon Dioxide 27 mmol/L (22-30) 12/10/20 09:37 Anion Gap 16 mmol/L 12/10/20 09:37 BUN 19 mg/dL (7-17) H 12/10/20 09:37 Creatinine 0.7 mg/dL (0.6-1.2) 12/10/20 09:37 Estimated GFR > 60 ml/min 12/10/20 09:37 BUN/Creatinine Ratio 27 % 12/10/20 09:37 Glucose 105 mg/dL (65-100) H 12/10/20 09:37 POC Glucose 102 mg/dL (70-105) 12/10/20 23:36 Random Insulin 43.2 uIU/mL (<=19.6) H 11/02/20 19:19 Proinsulin See scanned result 11/02/20 19:19 C-Peptide 6.23 ng/mL (0.80-3.85) H 11/02/20 19:19 Lactic Acid 1.90 mmol/L (0.7-2.0) 10/04/20 22:00 Uric Acid 7.5 mg/dL (3.5-7.6) 10/02/20 13:05 Calcium 9.8 mg/dL (8.4-10.2) 12/10/20 09:37 Ionized Calcium 4.4 mg/dL (4.8-5.6) L 10/07/20 21:00 Phosphorus 4.60 mg/dL (2.5-4.5) H 11/13/20 10:05 Magnesium 2.10 mg/dL (1.7-2.3) 11/13/20 10:05 Total Bilirubin 0.50 mg/dL (0.1-1.2) 11/26/20 04:37 AST 51 units/L (5-40) H 11/26/20 04:37 ALT 42 units/L (7-56) 11/26/20 04:37 Alkaline Phosphatase 117 units/L (35-129) 11/26/20 04:37 Lactate Dehydrogenase 769 units/L (91-180) H 10/02/20 13:05 C-Reactive Protein 0.70 mg/dL (0.00-1.30) 11/11/20 13:50 NT-Pro-B Natriuret Pep 2788 pg/mL (0-450) H 10/04/20 10:00 Total Protein 7.8 g/dL (6.3-8.2) 11/26/20 04:37 Albumin 3.9 g/dL (3.9-5) 11/26/20 04:37 Albumin/Globulin Ratio 1.0 % 11/26/20 04:37 Procalcitonin < 0.05 ng/mL (<0.15) 11/11/20 13:50 Arterial Blood Glucose 109 mg/dL (65-95) H 10/13/20 07:18 Arterial Blood Ionized Calcium 4.6 mg/dL (4.6-5.3) 10/13/20 07:18 Urine Color Kelsey (Yellow) 12/10/20 09:25 Urine Turbidity Cloudy (Clear) 12/10/20 09:25 Urine pH 7.0 (5.0-7.0) 12/10/20 09:25 Ur Specific [place] 1.027 (1.003-1.030) 12/10/20 09:25 Urine Protein 100 mg/dl mg/dL (Negative) 12/10/20 09:25 Urine Glucose (UA) Neg mg/dL (Negative) 12/10/20 09:25 Urine Ketones Neg mg/dL (Negative) 12/10/20 09:25 Urine Blood Sm (Negative) 12/10/20 09:25 Urine Nitrite Neg (Negative) 12/10/20 09:25 Urine Bilirubin Neg (Negative) 12/10/20 09:25 Urine Urobilinogen 4.0 mg/dL (<2.0) 12/10/20 09:25 Ur Leukocyte Esterase Mod (Negative) 12/10/20 09:25 Urine WBC (Auto) 50.0 /HPF (0.0-6.0) H 12/10/20 09:25 Urine RBC (Auto) 27.0 /HPF (0.0-6.0) 12/10/20 09:25 U Epithel Cells (Auto) 8.0 /HPF (0-13.0) 12/10/20 09:25 Urine Bacteria (Auto) 4+ /HPF (Negative) 11/11/20 13:50 Urine WBC Clumps 3+ /HPF 11/11/20 13:50 Calcium Oxalate Crystal Few 11/11/20 13:50 Urine Mucus Few /HPF 11/11/20 13:50 Urine Yeast (Budding) 2+ /HPF 12/10/20 09:25 Vancomycin Trough 12.6 ug/mL (5.0-20.0) 10/21/20 13:54 Random Vancomycin 10.7 ug/mL (0-40.0) 10/16/20 13:09 Phenytoin 5.7 ug/mL (10.0-20.0) L 10/13/20 07:00 C. difficile Tox (PCR) Positive (Negative) 10/16/20 10:22 Coronavirus (PCR) Negative (Negative) 10/08/20 14:15 Blood Type O POSITIVE 10/02/20 12:50 Antibody Screen Negative 10/02/20 12:50 Crossmatch See Detail 10/02/20 12:50 Microbiology: Microbiology 12/10/20 10:13 Peripheral/Venous Blood Culture - Preliminary Culture in Progress 12/10/20 09:37 Peripheral/Venous Blood Culture - Preliminary Culture in Progress - Diagnostic Impressions Diagnostic Impressions: Echocardiogram 10/03/20 13:42 Transthoracic Echocardiogram Indication: S/P Cardiac Arrest R/O Cardiomyopathy BP: 133/71 Conclusions *Global left ventricular systolic function is normal. *The estimated ejection fraction is 60-65%. *There is trace of mitral regurgitation. *The right 0heart chambers are both slightly dilated. *There is mild tricuspid regurgitation. *There is mild-moderate pulmonary hypertension. *The right ventricular systolic pressure is calculated at 44 mmHg. *The study quality is technically difficult. Findings Procedure Info: The study quality is technically difficult. The study is technically limited due to patient body habitus. The study was technically limited due to the patient's inability to lay in the left lateral decubitus position. Left Ventricle: The left ventricular chamber size is normal. There is no left ventricular hypertrophy. Global left ventricular systolic function is normal. The estimated ejection fraction is 60-65%. Left Atrium: The left atrial chamber size is normal. Right Ventricle: The right ventricle is slightly dilated. Right Atrium: The right atrium is mildly dilated. Aortic Valve: The aortic valve leaflets are mildly thickened. There is no evidence of aortic regurgitation. There is no evidence of aortic stenosis. Mitral Valve: The mitral valve leaflets are mildly thickened. There is trace of mitral regurgitation. There is no evidence of mitral stenosis. Tricuspid Valve: There is mild tricuspid regurgitation. The right ventricular systolic pressure is calculated at 44 mmHg. There is evidence of mild pulmonary hypertension. Pulmonic Valve: There is trace pulmonic regurgitation. Pericardium: There is no pericardial effusion. Aorta: There is no dilatation of the ascending aorta. There is no dilatation of the aortic root. Venous: The inferior vena cava is dilated. Measurements Chambers 2D Name Value Normal Range IVSd (2D) 1 cm (0.6 - 1.1) LVPWd (2D) 1.01 cm (0.6 - 1.1) LVIDd (2D) 4.58 cm (3.7 - 5.6) LVIDs (2D) 3.17 cm (2 - 3.8) LV FS (2D) 30.93 % - EF Teichholz (2D) 58.66 % - Ao root diameter (2D) 2.94 cm (2 - 3.7) Volumes/Mass Name Value Normal Range LA ESV SP 4CH (A/L) 72.82 ml - LA ESV SP 2CH (A/L) 66.86 ml - LA ESV BP (A/L) 74.49 ml - LA ESV SP 4CH (MOD) 71.03 ml - LA ESV SP 2CH (MOD) 64.3 ml - LV EDV SP 4CH (MOD) 98.82 ml - LV ESV SP 4CH (MOD) 24.8 ml - EF SP 4CH (MOD) 74.9 % - LV EDV SP 2CH (MOD) 86.1 ml - LV ESV SP 2CH (MOD) 36.93 ml - EF SP 2CH (MOD) 57.11 % - LV EDV BP 94.4 ml - LV ESV BP 32.66 ml - BP EF (MOD) 65.4 % - Diastolic/Systolic Function Name Value Normal Range MV E-wave Vmax 1.04 m/sec - MV deceleration time 160.46 msec - MV A-wave Vmax 0.92 m/sec - MV E:A ratio 1.14 ratio - Aortic Valve Name Value Normal Range AV Vmax 2.12 m/sec - AV VTI 22.37 cm - AV peak gradient 17.95 mmHg - AV mean gradient 7.29 mmHg - LVOT diameter 2.01 cm - LVOT Vmax 1.8 m/sec - LVOT VTI 27.17 cm - LVOT peak gradient 12.91 mmHg - LVOT mean gradient 6.83 mmHg - SV LVOT 86.42 ml - ANITA (continuity Vmax) 2.7 cm2 - ANITA (continuity VTI) 3.86 cm2 - Ascending Ao 3.18 cm - Tricuspid Valve Name Value Normal Range TV E-wave Vmax 0.88 m/sec - TR Vmax 3.01 m/sec - TR peak gradient 36.27 mmHg - RAP 8 mmHg - RVSP 44 mmHg - IVC diameter 2.65 cm (1.2 - 2.3) Pulmonic Valve/Qp:Qs Name Value Normal Range PV Vmax 1.22 m/sec - PV peak gradient 5.91 mmHg - RVOT Vmax 0.87 m/sec - RVOT VTI 13.32 cm - RVOT peak gradient 3 mmHg - PV acceleration time 110.37 msec - [place]/IV: Voiding Method External Female Catheter IV Catheter Type [Right Foot] INT / Saline Lock IV Catheter Type [Left Forearm Peripheral IV ] IV Catheter Type [Left Wrist] INT / Saline Lock IV Catheter Type [Right Hand] INT / Saline Lock IV Catheter Type [Right INT / Saline Lock Antecubital] IV Catheter Type [Right Upper Mid-line arm] IV Catheter Type [Left Triple Lumen Cath Internal Jugular] IV Catheter Type [Left Hand] Peripheral IV IV Catheter Type [Left Peripheral IV Antecubital] Active Medications - Current Medications Current Medications: Generic Name Dose Route Start Last Admin Trade Name Freq PRN Reason Stop Dose Admin Acetaminophen 650 mg 10/05/20 16:34 12/10/20 08:06 Acetaminophen 325 Mg/10.15 Ml Oral Liqd Unit Dose FEEDTUBE 650 mg Q6H PRN Administration Non Cardiac Pain or Temp>100.5 Albuterol 2.5 mg 11/05/20 13:03 11/06/20 13:04 Albuterol 2.5 Mg/3 Ml Nebu IH 2.5 mg Q4HRT PRN Administration Shortness Of Breath Lipase/Protease/Amylase 1 each 10/05/20 11:09 Lipase 10,500/Protease 25,000/Amylase 43,750 (Units) Dr Barakat FEEDTUBE PRN PRN For Clogged Feeding Tube Enoxaparin Sodium 40 mg 10/22/20 10:00 12/10/20 09:19 Enoxaparin 40 Mg/0.4 Ml Inj SUB-Q 40 mg DAILY ERINN Administration Protocol Famotidine 20 mg 10/07/20 10:00 12/10/20 22:50 Famotidine 20 Mg Tab PO 20 mg BID ERINN Administration Furosemide 40 mg 10/17/20 10:00 12/10/20 09:19 Furosemide 40 Mg Tab PO 40 mg QDAY ERINN Administration Hydralazine HCl 20 mg 10/07/20 11:49 10/17/20 07:20 Hydralazine 20 Mg/1 Ml Inj IV 20 mg Q6H PRN Administration SBP >170 Hydralazine HCl 50 mg 10/17/20 09:00 12/11/20 05:32 Hydralazine 25 Mg Tab PO 50 mg Q8HR ERINN Administration Ceftriaxone Sodium 1 gm in 50 mls @ 100 mls/hr 12/10/20 12:00 12/10/20 13:24 Rocephin/Ns 1 Gm/50 Ml IV 100 mls/hr Q24H ERINN Administration Protocol Labetalol HCl 300 mg 11/16/20 17:00 12/11/20 09:26 Labetalol 200 Mg Tab PO 300 mg TID ERINN Administration Simple Syrup 15 ml 10/05/20 11:09 Simple Syrup 15 Ml FEEDTUBE PRN PRN Hypoglycemia Simple Syrup 30 ml 10/05/20 11:09 Simple Syrup 15 Ml FEEDTUBE PRN PRN Hypoglycemia Sodium Bicarbonate 325 mg 10/05/20 11:09 11/24/20 11:51 Sodium Bicarbonate 325 Mg Tab FEEDTUBE 325 mg PRN PRN Administration For Clogged Feeding Tube Sodium Bicarbonate 1,300 mg 10/13/20 14:00 12/10/20 20:55 Sodium Bicarbonate 650 Mg Tab PO 1,300 mg TID ERINN Administration Nutrition/Malnutrition Assess - Dietary Evaluation Nutrition/Malnutrition Findings: Nutrition Notes Start: 10/04/20 11:13 Freq: Status: Active Protocol: Document 12/08/20 10:32 AT (Rec: 12/08/20 11:14 AT [id number]) Co-Sign 12/08/20 10:32 NHALL Nutrition Notes Initial or Follow up Reassessment Current Diagnosis Acute Kidney Injury, Respiratory Failure Other Pertinent Diagnosis C-Diff, Cardiac arrest, s/p c- section and supracervical hysterectomy, Brain Current Diet Jevity 1.2 at 60 mL/hr Labs/Tests No new labs Pertinent Medications Lasix Height 5 ft 8 in Weight 98.6 kg [place] Body Weight (kg) 63.63 BMI 33.0 Weight change and time frame Wt change noted, pt on Lasix Weight Status Obese Subjective/Other Information Follow up for TF tolerance. Observed TF running at goal rate. Per RN, pt is tolerating feeds without issue. Percent of energy/protein needs met: 81%/100% Burn Absent Trauma Absent GI Symptoms None Food Allergy Yes Current % PO Negligible Minimum of two criteria Yes Interpretation of Weight Loss (severe) >2% in 1 week Fluid Accumulation Mild (non-severe) #2 Nutrition Diagnosis Malnutrition Diagnosis Progress(for reassessment Continues documentation) #1 Nutrition Diagnosis Inadequate oral intake Diagnosis Progress(for reassessment Continues documentation) Is patient on ventilator? No Is Patient Ambulatory and/or Out of Bed No REE-([facility]-confined to bed) 7671.284 Kcal/Kg value to use for calculation 17 Approximate Energy Requirements Using 1676 kcal/Kg Calculation Used for Recommendations Kcal/kg Additional Notes PRO needs: 65-81 (0.8-1 g/kg AdBW 81kg) Fluid needs: 1 mL/kcal or per MD Nutrition Intervention Change Diet Order: Continue Nutrition Support: Jevity 1.2 at 60ml/hr. Flush 100ml q4h. Kcal 1,728 Protein (gm) 80 Fluid (mL) 1,162 Goal #1 TF tolerance Goal #2 Meet at least 75% of energy and protein needs Anticipated Discharge Needs: Unable to determine at this time Follow-Up By: 12/15/20 Additional Comments F/U for stable TF, weight
[2020-12-11] MEDS: FUROSEMIDE 40 MG TAB PO SCH (11:25)
[2020-12-11] MEDS: ENOXAPARIN 40 MG/0.4 ML INJ SUB-Q SCH (11:25)
[2020-12-11] MEDS: FAMOTIDINE 20 MG TAB PO SCH ×2 (11:25→21:02)
[2020-12-11] MEDS: cefTRIAXone/NS 1 GM/50 ML 1 GM/50 ML BAG IV SCH (13:21)
[2020-12-11] MEDS: ACETAMINOPHEN 325 MG/10.15 ML ORAL LIQD UNIT DOSE FEEDTUBE PRN (20:55)
[2020-12-12] MEDS: FAMOTIDINE 20 MG TAB PO SCH ×2 (09:51→21:22)
[2020-12-12] MEDS: SODIUM BICARBONATE 650 MG TAB PO SCH ×3 (09:51→20:10)
[2020-12-12] MEDS: ENOXAPARIN 40 MG/0.4 ML INJ SUB-Q SCH (09:51)
[2020-12-12] MEDS: FUROSEMIDE 40 MG TAB PO SCH (09:51)
--- NOTE | 2020-12-12 10:46 | Progress Note ---
Assessment and Plan -- Sepsis with presumed Pneumonia Teated with iv abx, follow Cx -Completed cefepime course 5 days on 10/09/2020 -Check MRSA culture -Start vancomycin p.o. empirically for C. difficile total 10 days, given diarrhea and worsening leukocytosis, --Acute respiratory failure with hypoxia Patient extubated. --DIC (disseminated intravascular coagulation) vs HELLP syndrome Has anemia,thrombocytopenia and elevated liver enzymes Patient received multiple units of RBCs, FFP's, cryo at present not requiring transfusion. Has resolved H&H is 12 and 37. Hematology/oncology recommendations appreciated Continue to trend fibrinogen and INR Critical care on board --Possible Eclampsia/HELLP Syndrome Patient presented with seizure-->hypoxia-->urgent C section-->hysterectomy for severe bleeding/DIC developed severe anemia-->received RBC, plt, FFP, cryo was on max pressors-->now off pressors still on vent, on sedation Hematology following --s/p Cardiac arrest x2 on admission and on 10/07 ACLS protocol followed by revival Echo showed preserved Ef --Shock s/p pressor support Likely hypovolemic. on empirical antibiotics for possible sepsis. Continue to monitor blood pressure closely Trend H&H and transfuse as needed --Lactic acidosis also resolving. As a result of poor organ perfusion and possible sepsis Continue IV hydration. Lactic acid is trending down Nephrology on board Overall prognosis extremely poor. --ADOLPH As a result of hypoperfusion and shock Continue IV hydration Cr stable, follow BMP --DVT prophylaxis Patient presented with DIC No anticoagulants UTI -Was not present on admission -Diagnosed on 12/10/2020 2 more days of Rocephin. Subjective Date of service: 12/12/20 Principal diagnosis: Eclampsia/HELLP Syndrome, ADOLPH, DIC; s/p , s/p miller pracervical hyst Interval history: 30 year old -Portuguese female CHE 10/25/20 at 36w5d who presents with seizures in triage on 10/02/20. Pt was not able to provide history but per pt's , she presented to the hospital to return a 24 hour urine specimen f or analysis. She then suddenly reported that she did not feel good. She was taken to labor and delivery and shortly after arrival, she began seizing. During this time, a code met was called because the patient became hypoxic. She was then noted to be without a pulse. Chest compressions were started immediately, and the patient was emergently taken to the operating room for delivery of the fetus. Off note, This patient has had care at [facility] with comanagement by [facility] since 11 wks complicated by ADHD, morbid obesity, generalized anxiety disorder, panic attacks, chronic narcotic use, fibromyalgia, GERD, Irritable Bowel Syndrome, Migraines, h/o endometrial ablation and ovarian vein embolization, genital herpes, insomnia, LGA fetus, nausea and vomiting, polyhydramnios, quad screen positive for Down's Syndrome, and previous x 3. She is GBS negative. 11:30: Pt brought to L&D triage for evaluation of possible labor. Pt accompanied by her spouse. Pt spouse poor historian; unable to obtain history- allergies at this time. Pt taken from registration to triage area via WC. Pt unresponsive, actively seizing with snorous respirations. geothermal plant manager, Kassy, called and requesting assistance. 11:35: Multiple staff at bedside. Pt 02 sat 67% on nonrebreather, unable to read BP at this time. Yifan Theodore CRNA, at bedside for intubation and assistance with IV insertion. INT attempt by multiple RNs unsuccessful at this time. 11:42: Pt being bagged by KORIN, 02% 79%. No pulse palpated, compressions started at this time; bharati young called and Dr. Newberry preparing OR for emergent c/s. 11:44: Continued compressions on stretcher while transporting pt to OR 1. Pt being bagged with jaw thrust manuever in place by KORIN Stringer student. 11:45: Arrival to OR 1. Dr. Newberry and Dr. Portillo present for emergent c/s. Code team arrived for continued care. patient revived and c/s done Patient has been bleeding from C/s site followed by supracervical hysterectomy for severe bleeding Patient transfused multiple units of PRBC, Patient in DIC. Transferred to the ICU 10/03. Patient seen and examined at bedside this morning. Patient is nonresponsive and mechanically ventilated. On pressors. Labs reviewed-has leukocytosis, anemia, thrombocytopenia, ADOLPH and lactic acidosis. Started on IV antibiotics to cover possible sepsis secondary to DIC. Hematology oncology recommendations appreciated-needs additional cryoprecipitate and FFP. Monitor D-dimer, fibrinogen and frequent labs. Nephrology consulted for lactic acidosis and ADOLPH. 10/04. Remains mechanically ventilated. Qulin antibiotics. Labs shows improved acidosis - lactic acid 3.5. Hb drop noted. Getting transfused 2 units PRBCs. Platelet count is ~40k. Continue to monitor labs closely. Critical care team on board. 10/05; xray reviewed, concerning for multifocal infilrate, likely underlying Pneumonia, will add ID consult to assist with management of this critically ill patient, start tube feed, closely monitor renal system 10/06: Resumed care, remains on mechanical ventilation. No active bleeding, H&H stable. Continue to monitor CBC and BMP. Continue IV antibiotic for underlying pneumonia. Follow critical care and ID recommendation. 10/07: Remains on mechanical ventilation. No active bleeding, H&H stable. Critical care following, wean off ventilation as tolerated. 10/08: Patient had another cardiac arrest last night. Remains on mechanical ventilation, update family. Continue supportive care -poor prognosis 10/09: Called patient mother and discussed about patient care and management. Answered all question to best of my knowledge and family satisfaction. Patient remains on mechanical ventilation, cardiac arrest x2 so far. Critically sick, poor prognosis 10/10: remains on mechanical ventilation. h/h stable, no active bleeding. monitor CBC/BMP 10/11: WBC trended up with diarrhea, started on vancomycin po. remains on MV, off pressor, tolerating TF 10/12: remains on MV, off pressor, tolerating TF. called family for update but unable to reach, could not leave message as it was full. cont supportive care, wean off vent as tolerated. 10/13/2020; patient is on mechanical ventilation, tolerating tube feeding. Patient has labored breathing. Neuro was consulted and recommend MRI. Patient is on Precedex. Rectal tube in place. 10/14/2020; patient is on mechanical ventilation, Precedex. Patient had fever and blood culture ordered. Patient is on IV vancomycin per ID recommendation. Neuro consulted and recommend MRI. Continue to monitor. Prognosis is guarded. 10/15/2020; patient is on mechanical ventilation, Precedex. Patient had fever and blood culture ordered. Patient is on IV vancomycin per ID recommendation. Neuro consulted and recommend MRI. Continue to monitor. Prognosis is guarded. 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 12/06/20; anoxic brain injury. Awaiting placement. 12/07/2020; anoxic brain injury, awaiting placement. 12/09/2020; anoxic brain injury, awaiting placement. 12/10/2020; patient had episodes of fever overnight. CBC, BMP, blood culture, UA and chest x-ray ordered, will follow and manage accordingly. Urinalysis is suggestive of UTI and I put the patient on ceftriaxone, order urine culture. Chest x-ray is normal. 12/11/2020; patient is on ceftriaxone day 2 for UTI. We will continue to follow urine culture. 12/12/2020. Day #3 of Rocephin for UTI. We will continue for 2 more days while she is here. Present UTI. Patient no longer intubated unable to make needs known. Objective - Constitutional Vitals: Vital Signs - 12hr 12/11/20 12/11/20 12/11/20 23:00 23:41 23:58 Temperature Pulse Rate 106 H 94 H Pulse Rate [ From Monitor] Respiratory 13 16 Rate Blood Pressure 120/74 120/74 O2 Sat by Pulse 97 98 98 Oximetry O2 Sat by Pulse Oximetry [ Assessment] 12/12/20 12/12/20 12/12/20 00:00 00:25 01:00 Temperature 99.4 F Pulse Rate 92 H 94 H 104 H Pulse Rate [ From Monitor] Respiratory 17 19 Rate Blood Pressure 130/54 132/93 O2 Sat by Pulse 99 96 Oximetry O2 Sat by Pulse Oximetry [ Assessment] 12/12/20 12/12/20 12/12/20 02:00 03:00 03:30 Temperature Pulse Rate 103 H 99 H 107 H Pulse Rate [ From Monitor] Respiratory 15 21 Rate Blood Pressure 129/78 123/78 O2 Sat by Pulse 100 96 Oximetry O2 Sat by Pulse Oximetry [ Assessment] 12/12/20 12/12/20 12/12/20 04:00 04:52 05:00 Temperature 99.3 F Pulse Rate 107 H 102 H Pulse Rate [ 107 H From Monitor] Respiratory 12 10 L Rate Blood Pressure 126/85 142/82 O2 Sat by Pulse 100 99 100 Oximetry O2 Sat by Pulse 100 Oximetry [ Assessment] 12/12/20 12/12/20 12/12/20 06:00 07:00 08:00 Temperature 98.8 F Pulse Rate 100 H 111 H 102 H Pulse Rate [ 105 H From Monitor] Respiratory 15 11 L 15 Rate Blood Pressure 121/82 131/93 142/74 O2 Sat by Pulse 100 99 99 Oximetry O2 Sat by Pulse Oximetry [ Assessment] 12/12/20 12/12/20 12/12/20 08:29 08:30 09:00 Temperature Pulse Rate 111 H Pulse Rate [ From Monitor] Respiratory 13 Rate Blood Pressure O2 Sat by Pulse 99 100 Oximetry O2 Sat by Pulse 99 Oximetry [ Assessment] 12/12/20 10:00 Temperature Pulse Rate 102 H Pulse Rate [ From Monitor] Respiratory 19 Rate Blood Pressure 134/85 O2 Sat by Pulse 99 Oximetry O2 Sat by Pulse Oximetry [ Assessment] General appearance: Present: no acute distress - EENT Eyes: PERRL, EOM intact - Neck Neck: supple, normal ROM - Respiratory Respiratory effort: normal Respiratory: bilateral: CTA - Cardiovascular Rhythm: regular Extremity abnormal: edema - Gastrointestinal General gastrointestinal: Present: soft, non-tender, non-distended, normal bowel sounds, other - Musculoskeletal Musculoskeletal: generalized weakness - Neurologic Neurologic: other (Poor cognition) - Psychiatric Psychiatric: other (Anoxic) - Labs CBC & Chem 7: 12/10/20 09:37 12/10/20 09:37 - Imaging and cardiology Abdominal x-ray: report reviewed, image reviewed CT scan - abdomen: report reviewed, image reviewed MRI - head: report reviewed HEART Score - HEART Score Age: < 45 Risk factors: 1-2 risk factors - Critical Actions Critical Actions: >7 pts:50-65% risk of adverse cardiac event. Early invasive measures
[2020-12-12] MEDS: cefTRIAXone/NS 1 GM/50 ML 1 GM/50 ML BAG IV SCH (13:12)
[2020-12-12] MEDS: ACETAMINOPHEN 325 MG/10.15 ML ORAL LIQD UNIT DOSE FEEDTUBE PRN (20:13)
[2020-12-13] MEDS: ACETAMINOPHEN 325 MG/10.15 ML ORAL LIQD UNIT DOSE FEEDTUBE PRN ×2 (09:40→21:08)
[2020-12-13] MEDS: FAMOTIDINE 20 MG TAB PO SCH ×2 (09:40→21:06)
[2020-12-13] MEDS: ENOXAPARIN 40 MG/0.4 ML INJ SUB-Q SCH (09:41)
[2020-12-13] MEDS: SODIUM BICARBONATE 650 MG TAB PO SCH ×3 (09:41→21:06)
[2020-12-13] MEDS: FUROSEMIDE 40 MG TAB PO SCH (09:42)
--- NOTE | 2020-12-13 10:47 | Progress Note ---
Assessment and Plan -- Sepsis with presumed Pneumonia Teated with iv abx, follow Cx -Completed cefepime course 5 days on 10/09/2020 -Check MRSA culture -Start vancomycin p.o. empirically for C. difficile total 10 days, given diarrhea and worsening leukocytosis, --Acute respiratory failure with hypoxia Patient extubated. --DIC (disseminated intravascular coagulation) vs HELLP syndrome Has anemia,thrombocytopenia and elevated liver enzymes Patient received multiple units of RBCs, FFP's, cryo at present not requiring transfusion. Has resolved H&H is 12 and 37. Hemoglobin hematocrit remained stable pending today. Hematology/oncology recommendations appreciated Continue to trend fibrinogen and INR Critical care on board --Possible Eclampsia/HELLP Syndrome Patient presented with seizure-->hypoxia-->urgent C section-->hysterectomy for severe bleeding/DIC developed severe anemia-->received RBC, plt, FFP, cryo was on max pressors-->now off pressors still on vent, on sedation tracheostomy. 50% now. Hematology following --s/p Cardiac arrest x2 on admission and on 10/07 ACLS protocol followed by revival Echo showed preserved Ef --Shock s/p pressor support Likely hypovolemic. on empirical antibiotics for possible sepsis. Continue to monitor blood pressure closely Trend H&H repeated H&H today stable not requiring transfusion. --Lactic acidosis also resolving. As a result of poor organ perfusion and possible sepsis Continue IV hydration. Lactic acid is trending down Nephrology on board Overall prognosis extremely poor. --ADOLPH As a result of hypoperfusion and shock Continue IV hydration Cr stable, will follow up in the a.m. has been hemodynamically stable overall prognosis poor Even more quality of life extremely poor --DVT prophylaxis Patient presented with DIC No anticoagulants UTI -Was not present on admission -Diagnosed on 12/10/2020 Last day of Rocephin. Subjective Date of service: 12/13/20 Principal diagnosis: Eclampsia/HELLP Syndrome, ADOLPH, DIC; s/p , s/p supracervical hyst Interval history: 30 year old -Dominican female CHE 10/25/20 at 36w5d who presents with seizures in triage on 10/02/20. Pt was not able to provide history but per pt's , she presented to the hospital to return a 24 hour urine specimen for analysis. She then suddenly reported that she did not feel good. She was taken to labor and delivery and shortly after arrival, she began seizing. During this time, a code met was called because the patient became hypoxic. She was then noted to be without a pulse. Chest compressions were started immediately, and the patient was emergently taken to the operating room for delivery of the fetus. Off note, This patient has had care at [facility] with comanagement by [facility] since 11 wks complicated by ADHD, morbid obesity, generalized anxiety disorder, panic attacks, chronic narcotic use, fibromyalgia, GERD, Irritable Bowel Syndrome, Migraines, h/o endometrial ablation and ovarian vein embolization, genital herpes, insomnia, LGA fetus, nausea and vomiting, polyhydramnios, quad screen positive for Down's Syndrome, and previous x 3. She is GBS negative. 11:30: Pt brought to L&D triage for evaluation of possible labor. Pt accompanied by her spouse. Pt spouse poor historian; unable to obtain history- allergies at this time. Pt taken from registration to triage area via WC. Pt unresponsive, actively seizing with snorous respirations. catalog specialist, Kassy, called and requesting assistance. 11:35: Multiple staff at bedside. Pt 02 sat 67% on nonrebreather, unable to read BP at this time. Yifan Theodore CRNA, at bedside for intubation and assistance with IV insertion. INT attempt by multiple RNs unsuccessful at this time. 11:42: Pt being bagged by KORIN, 02% 79%. No pulse palpated, compressions started at this time; bharati young called and Dr. Newberry preparing OR for emergent c/s. 11:44: Continued compressions on stretcher while transporting pt to OR 1. Pt being bagged with jaw thrust manuever in place by KORIN Stringer student. 11:45: Arrival to OR 1. Dr. Newberry and Dr. Portillo present for emergent c/s. Code team arrived for continued care. patient revived and c/s done Patient has been bleeding from C/s site followed by supracervical hysterectomy for severe bleeding Patient transfused multiple units of PRBC, Patient in DIC. Transferred to the ICU 10/03. Patient seen and examined at bedside this morning. Patient is nonresponsive and mechanically ventilated. On pressors. Labs reviewed-has leukocytosis, anemia, thrombocytopenia, ADOLPH and lactic acidosis. Started on IV antibiotics to cover possible sepsis secondary to DIC. Hematology oncology recommendations appreciated-needs additional cryoprecipitate and FFP. Monitor D-dimer, fibrinogen and frequent labs. Nephrology consulted for lactic acidosis and ADOLPH. 10/04. Remains mechanically ventilated. Kevin antibiotics. Labs shows improved acidosis - lactic acid 3.5. Hb drop noted. Getting transfused 2 units PRBCs. Platelet count is ~40k. Continue to monitor labs closely. Critical care team on board. 10/05; xray reviewed, concerning for multifocal infilrate, likely underlying Pneumonia, will add ID consult to assist with management of this critically ill patient, start tube feed, closely monitor renal system 10/06: Resumed care, remains on mechanical ventilation. No active bleeding, H&H stable. Continue to monitor CBC and BMP. Continue IV antibiotic for underlying pneumonia. Follow critical care and ID recommendation. 10/07: Remains on mechanical ventilation. No active bleeding, H&H stable. Critical care following, wean off ventilation as tolerated. 10/08: Patient had another cardiac arrest last night. Remains on mechanical ventilation, update family. Continue supportive care -poor prognosis 10/09: Called patient mother and discussed about patient care and management. Answered all question to best of my knowledge and family satisfaction. Patient remains on mechanical ventilation, cardiac arrest x2 so far. Critically sick, poor prognosis 10/10: remains on mechanical ventilation. h/h stable, no active bleeding. monitor CBC/BMP 10/11: WBC trended up with diarrhea, started on vancomycin po. remains on MV, off pressor, tolerating TF 10/12: remains on MV, off pressor, tolerating TF. called family for update but unable to reach, could not leave message as it was full. cont supportive care, wean off vent as tolerated. 10/13/2020; patient is on mechanical ventilation, tolerating tube feeding. Patient has labored breathing. Neuro was consulted and recommend MRI. Patient is on Precedex. Rectal tube in place. 10/14/2020; patient is on mechanical ventilation, Precedex. Patient had fever and blood culture ordered. Patient is on IV vancomycin per ID recommendation. Neuro consulted and recommend MRI. Continue to monitor. Prognosis is guarded. 10/15/2020; patient is on mechanical ventilation, Precedex. Patient had fever and blood culture ordered. Patient is on IV vancomycin per ID recommendation. Neuro consulted and recommend MRI. Continue to monitor. Prognosis is guarded. 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 12/06/20; anoxic brain injury. Awaiting placement. 12/07/2020; anoxic brain injury, awaiting placement. 12/09/2020; anoxic brain injury, awaiting placement. 12/10/2020; patient had episodes of fever overnight. CBC, BMP, blood culture, UA and chest x-ray ordered, will follow and manage accordingly. Urinalysis is suggestive of UTI and I put the patient on ceftriaxone, order urine culture. Chest x-ray is normal. 12/11/2020; patient is on ceftriaxone day 2 for UTI. We will continue to follow urine culture. 12/12/2020. Day #3 of Rocephin for UTI. We will continue for 2 more days while she is here. Present UTI. 12/13/2020. Day #4 of Rocephin for UTI. Patient remains on 50% with tracheostomy. Remains unresponsive with evidence of anoxic encephalopathy unable to make needs known. 12/14/2020. Day #5 of Rocephin for UTI completed today. Remains on 50% unable to decrease oxygen via tracheostomy. No changes in responsiveness unable to make needs known. Overall prognosis remains extremely poor. Objective - Constitutional Vitals: Vital Signs - 12hr 12/12/20 12/13/20 12/13/20 23:00 00:00 01:00 Temperature 100.2 F H Pulse Rate 111 H 111 H 111 H Pulse Rate [ 115 H From Monitor] Respiratory 11 L 12 14 Rate Blood Pressure 110/60 125/78 122/88 O2 Sat by Pulse 100 100 98 Oximetry O2 Sat by Pulse Oximetry [ Assessment] 12/13/20 12/13/20 12/13/20 02:00 03:00 03:22 Temperature 100.0 F H Pulse Rate 111 H 106 H Pulse Rate [ From Monitor] Respiratory 14 18 Rate Blood Pressure 140/92 132/89 O2 Sat by Pulse 99 100 Oximetry O2 Sat by Pulse Oximetry [ Assessment] 12/13/20 12/13/20 12/13/20 04:00 04:19 05:00 Temperature Pulse Rate 112 H 108 H Pulse Rate [ 110 H From Monitor] Respiratory 14 17 Rate Blood Pressure 132/89 126/104 O2 Sat by Pulse 100 100 99 Oximetry O2 Sat by Pulse 100 Oximetry [ Assessment] 12/13/20 12/13/20 12/13/20 06:00 07:00 08:00 Temperature 99.6 F Pulse Rate 110 H 108 H 102 H Pulse Rate [ 110 H From Monitor] Respiratory 11 L 11 L 19 Rate Blood Pressure 118/90 128/88 128/84 O2 Sat by Pulse 97 99 97 Oximetry O2 Sat by Pulse Oximetry [ Assessment] 12/13/20 12/13/20 12/13/20 08:16 08:18 09:00 Temperature Pulse Rate 105 H Pulse Rate [ From Monitor] Respiratory Rate Blood Pressure 133/85 O2 Sat by Pulse 99 96 Oximetry O2 Sat by Pulse 99 Oximetry [ Assessment] 12/13/20 10:00 Temperature Pulse Rate 107 H Pulse Rate [ From Monitor] Respiratory 21 Rate Blood Pressure 130/91 O2 Sat by Pulse 99 Oximetry O2 Sat by Pulse Oximetry [ Assessment] General appearance: Present: no acute distress - Respiratory Respiratory: bilateral: CTA - Cardiovascular Rhythm: regular Extremities: pulses intact, No edema, normal color, Full ROM - Gastrointestinal General gastrointestinal: Present: normal bowel sounds, other (Tolerating feedings well. No evidence of infection) - Musculoskeletal Musculoskeletal: generalized weakness, other (Contractures and focal deficits on upper and lower extremities. Functional quadriplegia) - Neurologic Neurologic: other (Contractures upper and lower extremity.) - Labs CBC & Chem 7: 12/10/20 09:37 12/10/20 09:37 Labs: Abnormal lab results 10/02/20 12/13/20 Range/Units 12:50 05:12 POC Glucose 112 H (70-105) mg/dL Crossmatch See Detail HEART Score - HEART Score Age: < 45 Risk factors: 1-2 risk factors - Critical Actions Critical Actions: >7 pts:50-65% risk of adverse cardiac event. Early invasive measures
[2020-12-13] MEDS: cefTRIAXone/NS 1 GM/50 ML 1 GM/50 ML BAG IV SCH (13:06)
--- NOTE | 2020-12-14 10:25 | Progress Note ---
Assessment and Plan -- Sepsis with presumed Pneumonia Teated with iv abx, follow Cx -Completed cefepime course 5 days on 10/09/2020 -Check MRSA culture -Start vancomycin p.o. empirically for C. difficile total 10 days, given diarrhea and worsening leukocytosis, --Acute respiratory failure with hypoxia Patient extubated. --DIC (disseminated intravascular coagulation) vs HELLP syndrome Has anemia,thrombocytopenia and elevated liver enzymes Patient received multiple units of RBCs, FFP's, cryo at present not requiring transfusion. Has resolved H&H is 12 and 37. Hemoglobin hematocrit remained stable pending today. Hematology/oncology recommendations appreciated Continue to trend fibrinogen and INR Hemoglobin hematocrit remains stable today. Follow platelets transfuse as necessary. --Possible Eclampsia/HELLP Syndrome Patient presented with seizure-->hypoxia-->urgent C section-->hysterectomy for severe bleeding/DIC developed severe anemia-->received RBC, plt, FFP, cryo was on max pressors-->now off pressors still on vent, on sedation tracheostomy. 50% now. Hematology following --s/p Cardiac arrest x2 on admission and on 10/07 ACLS protocol followed by revival Echo showed preserved Ef --Shock-resolved now awaiting placement s/p pressor support Likely hypovolemic. on empirical antibiotics for possible sepsis. Continue to monitor blood pressure closely Trend H&H repeated H&H today stable not requiring transfusion. --Lactic acidosis also resolving. As a result of poor organ perfusion and possible sepsis Continue IV hydration. Lactic acid is trending down Nephrology on board Overall prognosis extremely poor. --ADOLPH-resolved As a result of hypoperfusion and shock Continue IV hydration Cr stable, will follow up in the a.m. has been hemodynamically stable overall prognosis poor Even more quality of life extremely poor --DVT prophylaxis Patient presented with DIC No anticoagulants UTI -Was not present on admission -Diagnosed on 12/10/2020 Last day of Rocephin. Subjective Date of service: 12/14/20 Principal diagnosis: Eclampsia/HELLP Syndrome, ADOLPH, DIC; s/p , s/p supracervical hyst Interval history: 30 year old -[place] female CHE 10/25/20 at 36w5d who presents with seizures in triage on 10/02/20. Pt was not able to provide history but per pt's , she presented to the hospital to return a 24 hour urine specimen for analysis. She then suddenly reported that she did not feel good. She was taken to labor and delivery and shortly after arrival, she began seizing. During this time, a code met was called because the patient became hypoxic. She was then noted to be without a pulse. Chest compressions were started immediately, and the patient was emergently taken to the operating room for delivery of the fetus. Off note, This patient has had care at [facility] with com anagement by [facility] since 11 wks complicated by ADHD, morbid obesity, generalized anxiety disorder, panic attacks, chronic narcotic use, fibromyalgia, GERD, Irritable Bowel Syndrome, Migraines, h/o endometrial ablation and ovarian vein embolization, genital herpes, insomnia, LGA fetus, nausea and vomiting, polyhydramnios, quad screen positive for Down's Syndrome, and previous x 3. She is GBS negative. 11:30: Pt brought to L&D triage for evaluation of possible labor. Pt accompanied by her spouse. Pt spouse poor historian; unable to obtain history- allergies at this time. Pt taken from registration to triage area via WC. Pt unresponsive, actively seizing with snorous respirations. parachute folder, Kassy, called and requesting assistance. 11:35: Multiple staff at bedside. Pt 02 sat 67% on nonrebreather, unable to read BP at this time. Yifan Theodore CRNA, at bedside for intubation and assistance with IV insertion. INT attempt by multiple RNs unsuccessful at this time. 11:42: Pt being bagged by KORIN, 02% 79%. No pulse palpated, compressions started at this time; bharati young called and Dr. Newberry preparing OR for emergent c/s. 11:44: Continued compressions on stretcher while transporting pt to OR 1. Pt being bagged with jaw thrust manuever in place by KORIN Stringer student. 11:45: Arrival to OR 1. Dr. Newberry and Dr. Portilol present for emergent c/s. Code team arrived for continued care. patient revived and c/s done Patient has been bleeding from C/s site followed by supracervical hysterectomy for severe bleeding Patient transfused multiple units of PRBC, Patient in DIC. Transferred to the ICU 10/03. Patient seen and examined at bedside this morning. Patient is nonrespon sive and mechanically ventilated. On pressors. Labs reviewed-has leukocytosis, anemia, thrombocytopenia, ADOLPH and lactic acidosis. Started on IV antibiotics to cover possible sepsis secondary to DIC. Hematology oncology recommendations appreciated-needs additional cryoprecipitate and FFP. Monitor D-dimer, fibrinogen and frequent labs. Nephrology consulted for lactic acidosis and ADOLPH. 10/04. Remains mechanically ventilated. [place] antibiotics. Labs shows improved acidosis - lactic acid 3.5. Hb drop noted. Getting transfused 2 units PRBCs. Platelet count is ~40k. Continue to monitor labs closely. Critical care team on board. 10/05; xray reviewed, concerning for multifocal infilrate, likely underlying Pneumonia, will add ID consult to assist with management of this critically ill patient, start tube feed, closely monitor renal system 10/06: Resumed care, remains on mechanical ventilation. No active bleeding, H&H stable. Continue to monitor CBC and BMP. Continue IV antibiotic for underlying pneumonia. Follow critical care and ID recommendation. 10/07: Remains on mechanical ventilation. No active bleeding, H&H stable. Critical care following, wean off ventilation as tolerated. 10/08: Patient had another cardiac arrest last night. Remains on mechanical ventilation, update family. Continue supportive care -poor prognosis 10/09: Called patient mother and discussed about patient care and management. Answered all question to best of my knowledge and family satisfaction. Patient remains on mechanical ventilation, cardiac arrest x2 so far. Critically sick, poor prognosis 10/10: remains on mechanical ventilation. h/h stable, no active bleeding. monitor CBC/BMP 10/11: WBC trended up with diarrhea, started on vancomycin po. remains on MV, off pressor, tolerating TF 10/12: remains on MV, off pressor, tolerating TF. called family for update but unable to reach, could not leave message as it was full. cont supportive care, wean off vent as tolerated. 10/13/2020; patient is on mechanical ventilation, tolerating tube feeding. Patient has labored breathing. Neuro was consulted and recommend MRI. Patient is on Precedex. Rectal tube in place. 10/14/2020; patient is on mechanical ventilation, Precedex. Patient had fever and blood culture ordered. Patient is on IV vancomycin per ID recommendation. Neuro consulted and recommend MRI. Continue to monitor. Prognosis is guarded. 10/15/2020; patient is on mechanical ventilation, Precedex. Patient had fever and blood culture ordered. Patient is on IV vancomycin per ID recommendation. Neuro consulted and recommend MRI. Continue to monitor. Prognosis is guarded. 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 12/06/20; anoxic brain injury. Awaiting placement. 12/07/2020; anoxic brain injury, awaiting placement. 12/09/2020; anoxic brain injury, awaiting placement. 12/10/2020; patient had episodes of fever overnight. CBC, BMP, blood culture, UA and chest x-ray ordered, will follow and manage accordingly. Urinalysis is suggestive of UTI and I put the patient on ceftriaxone, order urine culture. Chest x-ray is normal. 12/11/2020; patient is on ceftriaxone day 2 for UTI. We will continue to follow urine culture. 12/12/2020. Day #3 of Rocephin for UTI. We will continue for 2 more days while she is here. Present UTI. 12/13/2020. Day #4 of Rocephin for UTI. Patient remains on 50% with tracheostomy. Remains unresponsive with evidence of anoxic encephalopathy unable to make needs known. 12/14/2020. Day #5 of Rocephin for UTI completed today. Remains encephalopathic unable to make needs known. Remains on 50% unable to decrease oxygen via tracheostomy. Overall prognosis remains extremely poor. Objective - Constitutional Vitals: Vital Signs - 12hr 12/13/20 12/14/20 12/14/20 23:00 00:00 01:00 Temperature 100.0 F H Pulse Rate 115 H 109 H 113 H Respiratory 17 20 18 Rate Blood Pressure 127/92 129/94 127/79 O2 Sat by Pulse 99 99 98 Oximetry O2 Sat by Pulse Oximetry [ Assessment] 12/14/20 12/14/20 12/14/20 02:00 03:00 03:40 Temperature 99.8 F H Pulse Rate 115 H 116 H Respiratory 18 11 L Rate Blood Pressure 124/81 124/81 O2 Sat by Pulse 99 97 Oximetry O2 Sat by Pulse Oximetry [ Assessment] 12/14/20 12/14/20 12/14/20 04:00 05:00 05:17 Temperature Pulse Rate 103 H 114 H Respiratory 17 21 Rate Blood Pressure 122/68 122/68 O2 Sat by Pulse 99 100 Oximetry O2 Sat by Pulse 99 Oximetry [ Assessment] 12/14/20 12/14/20 12/14/20 06:00 07:00 08:05 Temperature Pulse Rate 114 H 112 H Respiratory 12 10 L Rate Blood Pressure 113/86 107/89 O2 Sat by Pulse 98 98 Oximetry O2 Sat by Pulse 100 Oximetry [ Assessment] 12/14/20 09:19 Temperature Pulse Rate Respiratory Rate Blood Pressure O2 Sat by Pulse 100 Oximetry O2 Sat by Pulse Oximetry [ Assessment] General appearance: Present: no acute distress, other (Patient does move when attempts to clean her tracheostomy and change her diaper otherwise no intelligible words.) - EENT Eyes: PERRL, EOM intact - Respiratory Respiratory: bilateral: CTA - Cardiovascular Rhythm: regular Extremity abnormal: edema, other (Trace edema contractures normal pulses.) - Gastrointestinal General gastrointestinal: Present: soft, non-tender, non-distended, normal bowel sounds, other (Tube feedings) - Musculoskeletal Musculoskeletal: other (Bilateral contractures and focal deficits unchanged consistent with anoxia) - Labs CBC & Chem 7: 12/10/20 09:37 12/10/20 09:37 Labs: Abnormal lab results 12/14/20 Range/Units 05:02 POC Glucose 109 H (70-105) mg/dL HEART Score - HEART Score Age: < 45 Risk factors: 1-2 risk factors - Critical Actions Critical Actions: >7 pts:50-65% risk of adverse cardiac event. Early invasive measures
[2020-12-14] MEDS: FAMOTIDINE 20 MG TAB PO SCH ×2 (10:28→21:56)
[2020-12-14] MEDS: FUROSEMIDE 40 MG TAB PO SCH (10:28)
[2020-12-14] MEDS: SODIUM BICARBONATE 650 MG TAB PO SCH ×3 (10:28→21:56)
[2020-12-14] MEDS: ENOXAPARIN 40 MG/0.4 ML INJ SUB-Q SCH (10:29)
[2020-12-14 10:37] LABS: Alanine Aminotransferase 42 units/L (7-56); Albumin 3.8 g/dL (3.9-5); BUN/Creatinine Ratio 30; Blood Urea Nitrogen 21 mg/dL (7-17); Calcium 9.9 mg/dL (8.4-10.2); Hemolysis Index 5
[2020-12-14 11:52] LABS: Basophils % (Auto) 0.3 % (0.0-1.8); Eosinophils # (Auto) 0.2 K/mm3 (0.0-0.4); Eosinophils % (Auto) 1.5 % (0.0-4.3); Hemoglobin 13.4 gm/dl (10.1-14.3); Lymphocytes # (Auto) 2.5 K/mm3 (1.2-5.4); Lymphocytes % (Auto) 24.1 % (13.4-35.0); Mean Corpuscular HGB Conc 31 % (30-34); Mean Corpuscular Volume 81 fl (79-97); Monocytes # (Auto) 0.8 K/mm3 (0.0-0.8); Monocytes % (Auto) 7.8 % (0.0-7.3); Platelet Count 347 K/mm3 (140-440); Red Cell Distribution Width 14.8 % (13.2-15.2)
[2020-12-14] MEDS: cefTRIAXone/NS 1 GM/50 ML 1 GM/50 ML BAG IV SCH (12:55)
[2020-12-15] MEDS: SODIUM BICARBONATE 650 MG TAB PO SCH ×3 (08:47→20:55)
[2020-12-15] MEDS: FAMOTIDINE 20 MG TAB PO SCH ×2 (09:16→22:25)
[2020-12-15] MEDS: FUROSEMIDE 40 MG TAB PO SCH (09:16)
[2020-12-15] MEDS: ENOXAPARIN 40 MG/0.4 ML INJ SUB-Q SCH (09:17)
--- NOTE | 2020-12-15 09:50 | Progress Note ---
Assessment and Plan Assessment and plan: Eclampsia/HELLP Syndrome, ADOLPH, DIC; s/p , s/p supracervical hyst 30 year old -[place] female CHE 10/25/20 at 36w5d who presents with seizures in triage on 10/02/20. Pt was not able to provide history but per pt's , she presented to the hospital to return a 24 hour urine specimen for analysis. She then suddenly reported that she did not feel good. She was taken to labor and delivery and shortly after arrival, she began seizing. During this time, a code met was called because the patient became hypoxic. She was then noted to be without a pulse. Chest compressions were started immediately, and the patient was emergently taken to the operating room for delivery of the fetus. Off note, This patient has had care at [facility] with comanagement by [facility] since 11 wks complicated by ADHD, morbid obesity, generalized anxiety disorder, panic attacks, chronic narcotic use, fibromyalgia, GERD, Irritable Bowel Syndrome, Migraines, h/o endometrial ablation and ovarian vein embolization, genital herpes, insomnia, LGA fetus, nausea and vomiting, polyhydramnios, quad screen positive for Down's Syndrome, and previous x 3. She is GBS negative. -- Sepsis with presumed Pneumonia Teated with iv abx, follow Cx -Completed cefepime course 5 days on 10/09/2020 -Check MRSA culture -Start vancomycin p.o. empirically for C. difficile total 10 days, given diarrhea and worsening leukocytosis, --Acute respiratory failure with hypoxia Patient extubated. --DIC (disseminated intravascular coagulation) vs HELLP syndrome Has anemia,thrombocytopenia and elevated liver enzymes Patient received multiple units of RBCs, FFP's, cryo at present not requiring transfusion. Has resolved H&H is 12 and 37. Hemoglobin hematocrit remained stable pending today. Hematology/oncology recommendations appreciated Continue to trend fibrinogen and INR Hemoglobin hematocrit remains stable today. Follow platelets transfuse as necessary. --Possible Eclampsia/HELLP Syndrome Patient presented with seizure-->hypoxia-->urgent C section-->hysterectomy for severe bleeding/DIC developed severe anemia-->received RBC, plt, FFP, cryo was on max pressors-->now off pressors still on vent, on sedation tracheostomy. 50% now. Hematology following --s/p Cardiac arrest x2 on admission and on 10/07 ACLS protocol followed by revival Echo showed preserved Ef --Shock-resolved now awaiting placement s/p pressor support Likely hypovolemic. on empirical antibiotics for possible sepsis. Continue to monitor blood pressure closely Trend H&H repeated H&H today stable not requiring transfusion. -- Hypernatremia --Lactic acidosis also resolving. As a result of poor organ perfusion and possible sepsis Continue IV hydration. Lactic acid is trending down Nephrology on board Overall prognosis extremely poor. --ADOLPH-resolved As a result of hypoperfusion and shock Continue IV hydration Cr stable, will follow up in the a.m. has been hemodynamically stable overall prognosis poor Even more quality of life extremely poor --DVT prophylaxis Patient presented with DIC No anticoagulants UTI -Was not present on admission -Diagnosed on 12/10/2020 Last day of Rocephin. 11:30: Pt brought to L&D triage for evaluation of possible labor. Pt accompanied by her spouse. Pt spouse poor historian; unable to obtain history- allergies at this time. Pt taken from registration to triage area via WC. Pt unresponsive, actively seizing with snorous respirations. manager respiratory, Kassy, called and requesting assistance. 11:35: Multiple staff at bedside. Pt 02 sat 67% on nonrebreather, unable to read BP at this time. Yifan Theodore CRNA, at bedside for intubation and assistance with IV insertion. INT attempt by multiple RNs unsuccessful at this time. 11:42: Pt being bagged by KORIN, 02% 79%. No pulse palpated, compressions started at this time; bharati young called and Dr. Newberry preparing OR for emergent c/s. 11:44: Continued compressions on stretcher while transporting pt to OR 1. Pt being bagged with jaw thrust manuever in place by KORIN Stringer student. 11:45: Arrival to OR 1. Dr. Newberry and Dr. Portillo present for emergent c/s. Code team arrived for continued care. patient revived and c/s done Patient has been bleeding from C/s site followed by supracervical hysterectomy for severe bleeding Patient transfused multiple units of PRBC, Patient in DIC. Transferred to the ICU 10/03. Patient seen and examined at bedside this morning. Patient is nonresponsive and mechanically ventilated. On pressors. Labs reviewed-has leukocytosis, anemia, thrombocytopenia, ADOLPH and lactic acidosis. Started on IV antibiotics to cover possible sepsis secondary to DIC. Hematology oncology recommendations appreciated-needs additional cryoprecipitate and FFP. Monitor D-dimer, fibrinogen and frequent labs. Nephrology consulted for lactic acidosis and ADOLPH. 10/04. Remains mechanically ventilated. Kevin antibiotics. Labs shows improved acidosis - lactic acid 3.5. Hb drop noted. Getting transfused 2 units PRBCs. Platelet count is ~40k. Continue to monitor labs closely. Critical care team on board. 10/05; xray reviewed, concerning for multifocal infilrate, likely underlying Pneumonia, will add ID consult to assist with management of this critically ill patient, start tube feed, closely monitor renal system 10/06: Resumed care, remains on mechanical ventilation. No active bleeding, H&H stable. Continue to monitor CBC and BMP. Continue IV antibiotic for underlying pneumonia. Follow critical care and ID recommendation. 10/07: Remains on mechanical ventilation. No active bleeding, H&H stable. Critical care following, wean off ventilation as tolerated. 10/08: Patient had another cardiac arrest last night. Remains on mechanical ventilation, update family. Continue supportive care -poor prognosis 10/09: Called patient mother and discussed about patient care and management. Answered all question to best of my knowledge and family satisfaction. Patient remains on mechanical ventilation, cardiac arrest x2 so far. Critically sick, poor prognosis 10/10: remains on mechanical ventilation. h/h stable, no active bleeding. monitor CBC/BMP 10/11: WBC trended up with diarrhea, started on vancomycin po. remains on MV, off pressor, tolerating TF 10/12: remains on MV, off pressor, tolerating TF. called family for update but unable to reach, could not leave message as it was full. cont supportive care, wean off vent as tolerated. 10/13/2020; patient is on mechanical ventilation, tolerating tube feeding. Patient has labored breathing. Neuro was consulted and recommend MRI. Patient is on Precedex. Rectal tube in place. 10/14/2020; patient is on mechanical ventilation, Precedex. Patient had fever and blood culture ordered. Patient is on IV vancomycin per ID recommendation. Neuro consulted and recommend MRI. Continue to monitor. Prognosis is guarded. 10/15/2020; patient is on mechanical ventilation, Precedex. Patient had fever and blood culture ordered. Patient is on IV vancomycin per ID recommendation. Neuro consulted and recommend MRI. Continue to monitor. Prognosis is guarded. 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 12/06/20; anoxic brain injury. Awaiting placement. 12/07/2020; anoxic brain injury, awaiting placement. 12/09/2020; anoxic brain injury, awaiting placement. 12/10/2020; patient had episodes of fever overnight. CBC, BMP, blood culture, UA and chest x-ray ordered, will follow and manage accordingly. Urinalysis is suggestive of UTI and I put the patient on ceftriaxone, order urine culture. Chest x-ray is normal. 12/11/2020; patient is on ceftriaxone day 2 for UTI. We will continue to follow urine culture. 12/12/2020. Day #3 of Rocephin for UTI. We will continue for 2 more days while she is here. Present UTI. 12/13/2020. Day #4 of Rocephin for UTI. Patient remains on 50% with tracheostomy. Remains unresponsive with evidence of anoxic encephalopathy unable to make needs known. 12/14/2020. Day #5 of Rocephin for UTI completed today. Remains encephalopathic unable to make needs known. Remains on 50% unable to decrease oxygen via tracheostomy. Overall prognosis remains extremely poor. 12/15: Continue to monitor. Stop and monitor antibiotics at this time. Continue to wean oxygen as tolerated. Wean oxygen as tolerated. Case management working on placement. History Interval history: Patient seen and examined, no clinical changes, intermittent low grade fever noted. Hospitalist Physical - Physical exam Narrative exam: VITAL SIGNS: Reviewed. GENERAL: No worsening respiratory distress HEAD: No signs of head trauma. Opens her eyes but no purposeful movement EYES: Pupils are equal. MOUTH: clear NECK: No adenopathy, no JVD. Trach CHEST: Rales posteriorly CARDIAC: normal S1 and S2, without murmurs, gallops, or rubs. ABDOMEN: PEG, Soft, non tender and non distended. surgical wound in tact, No rebound or guarding, and no masses palpated. Bowel Sounds normal. MUSCULOSKELETAL: generalized anasacar NEUROLOGIC EXAM: AWAKE BUT NOT RESPONSIVE SKIN: No obvious lesions - Constitutional Vitals: Temp Pulse Resp BP Pulse Ox 98.4 F 119 H 9 L 111/85 99 12/15/20 07:27 12/15/20 06:00 12/15/20 06:00 12/15/20 06:00 12/15/20 09:02 General appearance: Present: no acute distress, other (Patient does move when attempts to clean her tracheostomy and change her diaper otherwise no intelligible words.) HEART Score - HEART Score Age: < 45 Risk factors: 1-2 risk factors - Critical Actions Critical Actions: >7 pts:50-65% risk of adverse cardiac event. Early invasive measures Results - Labs CBC & Chem 7: 12/14/20 10:32 12/14/20 09:06 Labs: Laboratory Last Values WBC 10.3 K/mm3 (4.5-11.0) 12/14/20 10:32 RBC 5.30 M/mm3 (3.65-5.03) H 12/14/20 10:32 Hgb 13.4 gm/dl (10.1-14.3) 12/14/20 10:32 Hgb Comment See scanned result 10/04/20 Unknown Hct 43.0 % (30.3-42.9) H 12/14/20 10:32 MCV 81 fl (79-97) 12/14/20 10:32 MCH 25 pg (28-32) L 12/14/20 10:32 MCHC 31 % (30-34) 12/14/20 10:32 RDW 14.8 % (13.2-15.2) 12/14/20 10:32 Plt Count 347 K/mm3 (140-440) 12/14/20 10:32 Lymph % (Auto) 24.1 % (13.4-35.0) 12/14/20 10:32 Banner % (Auto) 7.8 % (0.0-7.3) H 12/14/20 10:32 Eos % (Auto) 1.5 % (0.0-4.3) 12/14/20 10:32 Baso % (Auto) 0.3 % (0.0-1.8) 12/14/20 10:32 Lymph # (Auto) 2.5 K/mm3 (1.2-5.4) 12/14/20 10:32 Banner # (Auto) 0.8 K/mm3 (0.0-0.8) 12/14/20 10:32 Eos # (Auto) 0.2 K/mm3 (0.0-0.4) 12/14/20 10:32 Baso # (Auto) 0.0 K/mm3 (0.0-0.1) 12/14/20 10:32 Add Manual Diff Complete 12/10/20 09:37 Total Counted 100 12/10/20 09:37 Seg Neutrophils % 66.3 % (40.0-70.0) 12/14/20 10:32 Seg Neuts % (Manual) 81.0 % (40.0-70.0) H 12/10/20 09:37 Band Neutrophils % 2.0 % 10/15/20 05:50 Lymphocytes % (Manual) 17.0 % (13.4-35.0) 12/10/20 09:37 Reactive Lymphs % (Man) 1.0 % 10/02/20 12:18 Monocytes % (Manual) 2.0 % (0.0-7.3) 12/10/20 09:37 Eosinophils % (Manual) 1.0 % (0.0-4.3) 10/29/20 07:56 Myelocytes % 2.0 % 10/02/20 13:05 Metamyelocytes % 1.0 % 10/14/20 04:00 Nucleated RBC % Not Reportable 12/10/20 09:37 Seg Neutrophils # 6.8 K/mm3 (1.8-7.7) 12/14/20 10:32 Seg Neutrophils # Man 10.1 K/mm3 (1.8-7.7) H 12/10/20 09:37 Band Neutrophils # 0.0 K/mm3 12/10/20 09:37 Lymphocytes # (Manual) 2.1 K/mm3 (1.2-5.4) 12/10/20 09:37 Abs React Lymphs (Man) 0.0 K/mm3 12/10/20 09:37 Monocytes # (Manual) 0.3 K/mm3 (0.0-0.8) 12/10/20 09:37 Eosinophils # (Manual) 0.0 K/mm3 (0.0-0.4) 12/10/20 09:37 Basophils # (Manual) 0.0 K/mm3 (0.0-0.1) 12/10/20 09:37 Metamyelocytes # 0.0 K/mm3 12/10/20 09:37 Myelocytes # 0.0 K/mm3 12/10/20 09:37 Promyelocytes # 0.0 K/mm3 12/10/20 09:37 Blast Cells # 0.0 K/mm3 12/10/20 09:37 WBC Morphology Not Reportable 12/10/20 09:37 Hypersegmented Neuts Not Reportable 12/10/20 09:37 Hyposegmented Neuts Not Reportable 12/10/20 09:37 Hypogranular Neuts Not Reportable 12/10/20 09:37 Smudge Cells Not Reportable 12/10/20 09:37 Toxic Granulation Not Reportable 12/10/20 09:37 Toxic Vacuolation Not Reportable 12/10/20 09:37 Dohle Bodies Not Reportable 12/10/20 09:37 Pelger-Huet Anomaly Not Reportable 12/10/20 09:37 Ester Rods Not Reportable 12/10/20 09:37 Platelet Estimate Consistent w auto 12/10/20 09:37 Clumped Platelets Not Reportable 12/10/20 09:37 Plt Clumps, EDTA Not Reportable 12/10/20 09:37 Large Platelets Not Reportable 12/10/20 09:37 Giant Platelets Not Reportable 12/10/20 09:37 Platelet Satelliting Not Reportable 12/10/20 09:37 Plt Morphology Comment Not Reportable 12/10/20 09:37 RBC Morphology Normal 12/10/20 09:37 Dimorphic RBCs Not Reportable 12/10/20 09:37 Polychromasia Not Reportable 12/10/20 09:37 Hypochromasia 1+ 12/10/20 09:37 Poikilocytosis Not Reportable 12/10/20 09:37 Anisocytosis Not Reportable 12/10/20 09:37 Microcytosis Not Reportable 12/10/20 09:37 Macrocytosis Not Reportable 12/10/20 09:37 Spherocytes Not Reportable 12/10/20 09:37 Pappenheimer Bodies Not Reportable 12/10/20 09:37 Sickle Cells Not Reportable 12/10/20 09:37 Target Cells Not Reportable 12/10/20 09:37 Tear Drop Cells Not Reportable 12/10/20 09:37 Ovalocytes Not Reportable 12/10/20 09:37 Stomatocytes Few 10/14/20 04:00 Helmet Cells Not Reportable 12/10/20 09:37 Burk-[place] Bodies Not Reportable 12/10/20 09:37 [place] Rings Not Reportable 12/10/20 09:37 [place] Cells Not Reportable 12/10/20 09:37 Bite Cells Not Reportable 12/10/20 09:37 Crenated Cell Not Reportable 12/10/20 09:37 Elliptocytes Not Reportable 12/10/20 09:37 Acanthocytes (Spur) Not Reportable 12/10/20 09:37 Rouleaux Not Reportable 12/10/20 09:37 Hemoglobin C Crystals Not Reportable 12/10/20 09:37 Schistocytes Not Reportable 12/10/20 09:37 Malaria parasites Not Reportable 12/10/20 09:37 Sickle Cell Solubility See scanned result 10/04/20 Unknown Hemoglobin A See scanned result 10/04/20 Unknown Hemoglobin A2 See scanned result 10/04/20 Unknown Hemoglobin A2 Prime See scanned result 10/04/20 Unknown Hemoglobin C See scanned result 10/04/20 Unknown Hemoglobin D See scanned result 10/04/20 Unknown Hemoglobin E See scanned result 10/04/20 Unknown Hgb F Diffential Stain See scanned result 10/04/20 Unknown Hemoglobin F Quant See scanned result 10/04/20 Unknown Hemoglobin G See scanned result 10/04/20 Unknown Hemoglobin S See scanned result 10/04/20 Unknown Hemoglobin O[place] See scanned result 10/04/20 Unknown Hemoglobin [place] See scanned result 10/04/20 Unknown Hemoglobin Analilia See scanned result 10/04/20 Unknown Variant Hemoglobin See scanned result 10/04/20 Unknown Abnorm Hgb IEF Confirm See scanned result 10/04/20 Unknown Hemoglobin Interpret See scanned result 10/04/20 Unknown Hemoglobinopathy Note See scanned result 10/04/20 Unknown Sharad Bodies Not Reportable 12/10/20 09:37 Hem Pathologist Commnt No 12/10/20 09:37 PT 13.6 Sec. (12.2-14.9) 10/21/20 13:54 INR 1.06 (0.87-1.13) 10/21/20 13:54 APTT 31.6 Sec. (24.2-36.6) 10/03/20 00:40 Fibrinogen 336 mg/dl (211-480) 10/04/20 10:00 D-Dimer 1974.47 ng/mlDDU (0-234) H 11/11/20 13:50 ABG pH 7.459 pH Units (7.350-7.450) H 10/26/20 10:30 POC ABG pCO2 20.7 mmHg (32.0-48.0) L 10/13/20 07:18 ABG pCO2 32.4 mm Hg 10/26/20 10:30 POC ABG pO2 137.9 mmHg (83-108) H 10/13/20 07:18 ABG pO2 112.2 mm Hg (80.0-90.0) H 10/26/20 10:30 POC ABG HCO3 14.8 10/13/20 07:18 ABG HCO3 22.5 mmol/L (20.0-26.0) 10/26/20 10:30 ABG O2 Saturation 98.2 % (95.0-99.0) 10/26/20 10:30 ABG O2 Content 18.5 (0.0-44) 10/26/20 10:30 POC ABG Base Excess -6.9 10/13/20 07:18 ABG Base Excess -0.6 mmol/L (-2.0-3.0) 10/26/20 10:30 ABG Hemoglobin 13.5 gm/dl (12.0-16.0) 10/26/20 10:30 ABG Oxyhemoglobin 98.3 (94-98) H 10/13/20 07:18 ABG Carboxyhemoglobin 1.3 % (0.0-5.0) 10/26/20 10:30 ABG Methemoglobin 0.5 % (0.0-1.5) 10/26/20 10:30 ABG Sodium 135.9 mmol/L (136.0-145.0) L 10/13/20 07:18 ABG Potassium 3.7 mmol/L (3.40-4.50) 10/13/20 07:18 ABG Chloride 111.0 mmol/L (98-107) H 10/13/20 07:18 ABG Glucose 109 mg/dL (65-95) H 10/13/20 07:18 VBG pH 6.949 (7.320-7.420) L* 10/02/20 Unknown Oxyhemoglobin 96.5 % (95.0-99.0) 10/26/20 10:30 Carboxyhemoglobin 0.3 (0.5-1.5) L 10/13/20 07:18 FiO2 25 % 10/26/20 10:30 Sodium 155 mmol/L (137-145) H 12/14/20 09:06 Potassium 4.0 mmol/L (3.6-5.0) 12/14/20 09:06 Chloride 117.2 mmol/L (98-107) H 12/14/20 09:06 Carbon Dioxide 25 mmol/L (22-30) 12/14/20 09:06 Anion Gap 17 mmol/L 12/14/20 09:06 BUN 21 mg/dL (7-17) H 12/14/20 09:06 Creatinine 0.7 mg/dL (0.6-1.2) 12/14/20 09:06 Estimated GFR > 60 ml/min 12/14/20 09:06 BUN/Creatinine Ratio 30 % 12/14/20 09:06 Glucose 104 mg/dL (65-100) H 12/14/20 09:06 POC Glucose 125 mg/dL (70-105) H 12/15/20 05:40 Random Insulin 43.2 uIU/mL (<=19.6) H 11/02/20 19:19 Proinsulin See scanned result 11/02/20 19:19 C-Peptide 6.23 ng/mL (0.80-3.85) H 11/02/20 19:19 Lactic Acid 1.90 mmol/L (0.7-2.0) 10/04/20 22:00 Uric Acid 7.5 mg/dL (3.5-7.6) 10/02/20 13:05 Calcium 9.9 mg/dL (8.4-10.2) 12/14/20 09:06 Ionized Calcium 4.4 mg/dL (4.8-5.6) L 10/07/20 21:00 Phosphorus 4.60 mg/dL (2.5-4.5) H 11/13/20 10:05 Magnesium 2.10 mg/dL (1.7-2.3) 11/13/20 10:05 Total Bilirubin 0.50 mg/dL (0.1-1.2) 12/14/20 09:06 AST 63 units/L (5-40) H 12/14/20 09:06 ALT 42 units/L (7-56) 12/14/20 09:06 Alkaline Phosphatase 107 units/L (35-129) 12/14/20 09:06 Lactate Dehydrogenase 769 units/L (91-180) H 10/02/20 13:05 C-Reactive Protein 0.70 mg/dL (0.00-1.30) 11/11/20 13:50 NT-Pro-B Natriuret Pep 2788 pg/mL (0-450) H 10/04/20 10:00 Total Protein 8.3 g/dL (6.3-8.2) H 12/14/20 09:06 Albumin 3.8 g/dL (3.9-5) L 12/14/20 09:06 Albumin/Globulin Ratio 0.8 % 12/14/20 09:06 Procalcitonin < 0.05 ng/mL (<0.15) 11/11/20 13:50 Arterial Blood Glucose 109 mg/dL (65-95) H 10/13/20 07:18 Arterial Blood Ionized Calcium 4.6 mg/dL (4.6-5.3) 10/13/20 07:18 Urine Color Kelsey (Yellow) 12/10/20 09:25 Urine Turbidity Cloudy (Clear) 12/10/20 09:25 Urine pH 7.0 (5.0-7.0) 12/10/20 09:25 Ur Specific [place] 1.027 (1.003-1.030) 12/10/20 09:25 Urine Protein 100 mg/dl mg/dL (Negative) 12/10/20 09:25 Urine Glucose (UA) Neg mg/dL (Negative) 12/10/20 09:25 Urine Ketones Neg mg/dL (Negative) 12/10/20 09:25 Urine Blood Sm (Negative) 12/10/20 09:25 Urine Nitrite Neg (Negative) 12/10/20 09:25 Urine Bilirubin Neg (Negative) 12/10/20 09:25 Urine Urobilinogen 4.0 mg/dL (<2.0) 12/10/20 09:25 Ur Leukocyte Esterase Mod (Negative) 12/10/20 09:25 Urine WBC (Auto) 50.0 /HPF (0.0-6.0) H 12/10/20 09:25 Urine RBC (Auto) 27.0 /HPF (0.0-6.0) 12/10/20 09:25 U Epithel Cells (Auto) 8.0 /HPF (0-13.0) 12/10/20 09:25 Urine Bacteria (Auto) 4+ /HPF (Negative) 11/11/20 13:50 Urine WBC Clumps 3+ /HPF 11/11/20 13:50 Calcium Oxalate Crystal Few 11/11/20 13:50 Urine Mucus Few /HPF 11/11/20 13:50 Urine Yeast (Budding) 2+ /HPF 12/10/20 09:25 Vancomycin Trough 12.6 ug/mL (5.0-20.0) 10/21/20 13:54 Random Vancomycin 10.7 ug/mL (0-40.0) 10/16/20 13:09 Phenytoin 5.7 ug/mL (10.0-20.0) L 10/13/20 07:00 C. difficile Tox (PCR) Positive (Negative) 10/16/20 10:22 Coronavirus (PCR) Negative (Negative) 10/08/20 14:15 Blood Type O POSITIVE 10/02/20 12:50 Antibody Screen Negative 10/02/20 12:50 Crossmatch See Detail 10/02/20 12:50 Microbiology: Microbiology 12/10/20 10:13 Peripheral/Venous Blood Culture - Preliminary NO GROWTH AFTER 4 DAYS 12/10/20 09:37 Peripheral/Venous Blood Culture - Preliminary NO GROWTH AFTER 4 DAYS - Diagnostic Impressions Diagnostic Impressions: Echocardiogram 10/03/20 13:42 Transthoracic Echocardiogram Indication: S/P Cardiac Arrest R/O Cardiomyopathy BP: 133/71 Conclusions *Global left ventricular systolic function is normal. *The estimated ejection fraction is 60-65%. *There is trace of mitral regurgitation. *The right 0heart chambers are both slightly dilated. *There is mild tricuspid regurgitation. *There is mild-moderate pulmonary hypertension. *The right ventricular systolic pressure is calculated at 44 mmHg. *The study quality is technically difficult. Findings Procedure Info: The study quality is technically difficult. The study is technically limited due to patient body habitus. The study was technically limited due to the patient's inability to lay in the left lateral decubitus position. Left Ventricle: The left ventricular chamber size is normal. There is no left ventricular hypertrophy. Global left ventricular systolic function is normal. The estimated ejection fraction is 60-65%. Left Atrium: The left atrial chamber size is normal. Right Ventricle: The right ventricle is slightly dilated. Right Atrium: The right atrium is mildly dilated. Aortic Valve: The aortic valve leaflets are mildly thickened. There is no evidence of aortic regurgitation. There is no evidence of aortic stenosis. Mitral Valve: The mitral valve leaflets are mildly thickened. There is trace of mitral regurgitation. There is no evidence of mitral stenosis. Tricuspid Valve: There is mild tricuspid regurgitation. The right ventricular systolic pressure is calculated at 44 mmHg. There is evidence of mild pulmonary hypertension. Pulmonic Valve: There is trace pulmonic regurgitation. Pericardium: There is no pericardial effusion. Aorta: There is no dilatation of the ascending aorta. There is no dilatation of the aortic root. Venous: The inferior vena cava is dilated. Measurements Chambers 2D Name Value Normal Range IVSd (2D) 1 cm (0.6 - 1.1) LVPWd (2D) 1.01 cm (0.6 - 1.1) LVIDd (2D) 4.58 cm (3.7 - 5.6) LVIDs (2D) 3.17 cm (2 - 3.8) LV FS (2D) 30.93 % - EF Teichholz (2D) 58.66 % - Ao root diameter (2D) 2.94 cm (2 - 3.7) Volumes/Mass Name Value Normal Range LA ESV SP 4CH (A/L) 72.82 ml - LA ESV SP 2CH (A/L) 66.86 ml - LA ESV BP (A/L) 74.49 ml - LA ESV SP 4CH (MOD) 71.03 ml - LA ESV SP 2CH (MOD) 64.3 ml - LV EDV SP 4CH (MOD) 98.82 ml - LV ESV SP 4CH (MOD) 24.8 ml - EF SP 4CH (MOD) 74.9 % - LV EDV SP 2CH (MOD) 86.1 ml - LV ESV SP 2CH (MOD) 36.93 ml - EF SP 2CH (MOD) 57.11 % - LV EDV BP 94.4 ml - LV ESV BP 32.66 ml - BP EF (MOD) 65.4 % - Diastolic/Systolic Function Name Value Normal Range MV E-wave Vmax 1.04 m/sec - MV deceleration time 160.46 msec - MV A-wave Vmax 0.92 m/sec - MV E:A ratio 1.14 ratio - Aortic Valve Name Value Normal Range AV Vmax 2.12 m/sec - AV VTI 22.37 cm - AV peak gradient 17.95 mmHg - AV mean gradient 7.29 mmHg - LVOT diameter 2.01 cm - LVOT Vmax 1.8 m/sec - LVOT VTI 27.17 cm - LVOT peak gradient 12.91 mmHg - LVOT mean gradient 6.83 mmHg - SV LVOT 86.42 ml - ANITA (continuity Vmax) 2.7 cm2 - ANITA (continuity VTI) 3.86 cm2 - Ascending Ao 3.18 cm - Tricuspid Valve Name Value Normal Range TV E-wave Vmax 0.88 m/sec - TR Vmax 3.01 m/sec - TR peak gradient 36.27 mmHg - RAP 8 mmHg - RVSP 44 mmHg - IVC diameter 2.65 cm (1.2 - 2.3) Pulmonic Valve/Qp:Qs Name Value Normal Range PV Vmax 1.22 m/sec - PV peak gradient 5.91 mmHg - RVOT Vmax 0.87 m/sec - RVOT VTI 13.32 cm - RVOT peak gradient 3 mmHg - PV acceleration time 110.37 msec - [place]/IV: Voiding Method External Female Catheter IV Catheter Type [Right Foot] INT / Saline Lock IV Catheter Type [Left Forearm Peripheral IV ] IV Catheter Type [Left Wrist] INT / Saline Lock IV Catheter Type [Right Hand] INT / Saline Lock IV Catheter Type [Right INT / Saline Lock Antecubital] IV Catheter Type [Right Upper Mid-line arm] IV Catheter Type [Left Triple Lumen Cath Internal Jugular] IV Catheter Type [Left Hand] Peripheral IV IV Catheter Type [Left Peripheral IV Antecubital] Active Medications - Current Medications Current Medications: Generic Name Dose Route Start Last Admin Trade Name Freq PRN Reason Stop Dose Admin Acetaminophen 650 mg 10/05/20 16:34 12/13/20 21:08 Acetaminophen 325 Mg/10.15 Ml Oral Liqd Unit Dose FEEDTUBE 650 mg Q6H PRN Administration Non Cardiac Pain or Temp>100.5 Albuterol 2.5 mg 11/05/20 13:03 11/06/20 13:04 Albuterol 2.5 Mg/3 Ml Nebu IH 2.5 mg Q4HRT PRN Administration Shortness Of Breath Lipase/Protease/Amylase 1 each 10/05/20 11:09 Lipase 10,500/Protease 25,000/Amylase 43,750 (Units) Dr Barakat FEEDTUBE PRN PRN For Clogged Feeding Tube Enoxaparin Sodium 40 mg 10/22/20 10:00 12/15/20 09:17 Enoxaparin 40 Mg/0.4 Ml Inj SUB-Q 40 mg DAILY ERINN Administration Protocol Famotidine 20 mg 10/07/20 10:00 12/15/20 09:16 Famotidine 20 Mg Tab PO 20 mg BID ERINN Administration Furosemide 40 mg 10/17/20 10:00 12/15/20 09:16 Furosemide 40 Mg Tab PO 40 mg QDAY ERINN Administration Hydralazine HCl 20 mg 10/07/20 11:49 10/17/20 07:20 Hydralazine 20 Mg/1 Ml Inj IV 20 mg Q6H PRN Administration SBP >170 Ceftriaxone Sodium 1 gm in 50 mls @ 100 mls/hr 12/10/20 12:00 12/14/20 12:55 Rocephin/Ns 1 Gm/50 Ml IV 12/15/20 11:59 100 mls/hr Q24H ERINN Administration Protocol Simple Syrup 15 ml 10/05/20 11:09 Simple Syrup 15 Ml FEEDTUBE PRN PRN Hypoglycemia Simple Syrup 30 ml 10/05/20 11:09 Simple Syrup 15 Ml FEEDTUBE PRN PRN Hypoglycemia Sodium Bicarbonate 325 mg 10/05/20 11:09 11/24/20 11:51 Sodium Bicarbonate 325 Mg Tab FEEDTUBE 325 mg PRN PRN Administration For Clogged Feeding Tube Sodium Bicarbonate 1,300 mg 10/13/20 14:00 12/15/20 08:47 Sodium Bicarbonate 650 Mg Tab PO 1,300 mg TID ERINN Administration Nutrition/Malnutrition Assess - Dietary Evaluation Nutrition/Malnutrition Findings: Nutrition Notes Start: 10/04/20 11:13 Freq: Status: Active Protocol: Document 12/08/20 10:32 AT (Rec: 12/08/20 11:14 AT [id number]) Co-Sign 12/08/20 10:32 NHALL Nutrition Notes Initial or Follow up Reassessment Current Diagnosis Acute Kidney Injury, Respiratory Failure Other Pertinent Diagnosis C-Diff, Cardiac arrest, s/p c- section and supracervical hysterectomy, Brain Current Diet Jevity 1.2 at 60 mL/hr Labs/Tests No new labs Pertinent Medications Lasix Height 5 ft 8 in Weight 98.6 kg Barney Body Weight (kg) 63.63 BMI 33.0 Weight change and time frame Wt change noted, pt on Lasix Weight Status Obese Subjective/Other Information Follow up for TF tolerance. Observed TF running at goal rate. Per RN, pt is tolerating feeds without issue. Percent of energy/protein needs met: 81%/100% Burn Absent Trauma Absent GI Symptoms None Food Allergy Yes Current % PO Negligible Minimum of two criteria Yes Interpretation of Weight Loss (severe) >2% in 1 week Fluid Accumulation Mild (non-severe) #2 Nutrition Diagnosis Malnutrition Diagnosis Progress(for reassessment Continues documentation) #1 Nutrition Diagnosis Inadequate oral intake Diagnosis Progress(for reassessment Continues documentation) Is patient on ventilator? No Is Patient Ambulatory and/or Out of Bed No REE-([place]-confined to bed) 2095.284 Kcal/Kg value to use for calculation 17 Approximate Energy Requirements Using 1676 kcal/Kg Calculation Used for Recommendations Kcal/kg Additional Notes PRO needs: 65-81 (0.8-1 g/kg AdBW 81kg) Fluid needs: 1 mL/kcal or per MD Nutrition Intervention Change Diet Order: Continue Nutrition Support: Jevity 1.2 at 60ml/hr. Flush 100ml q4h. Kcal 1,728 Protein (gm) 80 Fluid (mL) 1,162 Goal #1 TF tolerance Goal #2 Meet at least 75% of energy and protein needs Anticipated Discharge Needs: Unable to determine at this time Follow-Up By: 12/15/20 Additional Comments F/U for stable TF, weight
[2020-12-16 07:00] LABS: Blood Urea Nitrogen TNR mg/dL (7-17)
[2020-12-16 07:01] LABS: BUN/Creatinine Ratio TNR; Calcium TNR mg/dL (8.4-10.2); Hemolysis Index TNR
[2020-12-16] MEDS: DEXTROSE 5% IN WATER 1,000 ML IV SCH (08:15)
[2020-12-16] MEDS: SODIUM BICARBONATE 325 MG TAB FEEDTUBE PRN (08:19)
[2020-12-16 08:48] LABS: BUN/Creatinine Ratio 30; Blood Urea Nitrogen 24 mg/dL (7-17); Calcium 9.8 mg/dL (8.4-10.2); Hemolysis Index 23
[2020-12-16] MEDS: FAMOTIDINE 20 MG TAB PO SCH ×2 (10:11→21:26)
[2020-12-16] MEDS: FUROSEMIDE 40 MG TAB PO SCH (10:11)
[2020-12-16] MEDS: ENOXAPARIN 40 MG/0.4 ML INJ SUB-Q SCH (10:12)
--- NOTE | 2020-12-16 10:44 | Progress Note ---
Assessment and Plan Assessment and plan: Eclampsia/HELLP Syndrome, ADOLPH, DIC; s/p , s/p supracervical hyst 30 year old -Algerian female CHE 10/25/20 at 36w5d who presents with seizures in triage on 10/02/20. Pt was not able to provide history but per pt's , she presented to the hospital to return a 24 hour urine specimen for analysis. She then suddenly reported that she did not feel good. She was taken to labor and delivery and shortly after arrival, she began seizing. During this time, a code met was called because the patient became hypoxic. She was then noted to be without a pulse. Chest compressions were started immediately, and the patient was emergently taken to the operating room for delivery of the fetus. Off note, This patient has had care at [facility] with comanagement by [facility] since 11 wks complicated by ADHD, morbid obesity, generalized anxiety disorder, panic attacks, chronic narcotic use, fibromyalgia, GERD, Irritable Bowel Syndrome, Migraines, h/o endometrial ablation and ovarian vein embolization, genital herpes, insomnia, LGA fetus, nausea and vomiting, polyhydramnios, quad screen positive for Down's Syndrome, and previous x 3. She is GBS negative. -- Sepsis with presumed Pneumonia Teated with iv abx, follow Cx -Completed cefepime course 5 days on 10/09/2020 -Check MRSA culture -Start vancomycin p.o. empirically for C. difficile total 10 days, given diarrhea and worsening leukocytosis, --Acute respiratory failure with hypoxia Patient extubated. --DIC (disseminated intravascular coagulation) vs HELLP syndrome Has anemia,thrombocytopenia and elevated liver enzymes Patient received multiple units of RBCs, FFP's, cryo at present not requiring transfusion. Has resolved H&H is 12 and 37. Hemoglobin hematocrit remained stable pending today. Hematology/oncology recommendations appreciated Continue to trend fibrinogen and INR Hemoglobin hematocrit remains stable today. Follow platelets transfuse as necessary. --Possible Eclampsia/HELLP Syndrome Patient presented with seizure-->hypoxia-->urgent C section-->hysterectomy for severe bleeding/DIC developed severe anemia-->received RBC, plt, FFP, cryo was on max pressors-->now off pressors still on vent, on sedation tracheostomy. 50% now. Hematology following --s/p Cardiac arrest x2 on admission and on 10/07 ACLS protocol followed by revival Echo showed preserved Ef --Shock-resolved now awaiting placement s/p pressor support Likely hypovolemic. on empirical antibiotics for possible sepsis. Continue to monitor blood pressure closely Trend H&H repeated H&H today stable not requiring transfusion. -- Hypernatremia --Lactic acidosis also resolving. As a result of poor organ perfusion and possible sepsis Continue IV hydration. Lactic acid is trending down Nephrology on board Overall prognosis extremely poor. --ADOLPH-resolved As a result of hypoperfusion and shock Continue IV hydration Cr stable, will follow up in the a.m. has been hemodynamically stable overall prognosis poor Even more quality of life extremely poor --DVT prophylaxis Patient presented with DIC No anticoagulants UTI -Was not present on admission -Diagnosed on 12/10/2020 Last day of Rocephin. 11:30: Pt brought to L&D triage for evaluation of possible labor. Pt accompanied by her spouse. Pt spouse poor historian; unable to obtain history- allergies at this time. Pt taken from registration to triage area via WC. Pt unresponsive, actively seizing with snorous respirations. landscape photographer, Kassy, called and requesting assistance. 11:35: Multiple staff at bedside. Pt 02 sat 67% on nonrebreather, unable to read BP at this time. Yifan Theodore CRNA, at bedside for intubation and assistance with IV insertion. INT attempt by multiple RNs unsuccessful at this time. 11:42: Pt being bagged by KORIN, 02% 79%. No pulse palpated, compressions started at this time; bharati young called and Dr. Newberry preparing OR for emergent c/s. 11:44: Continued compressions on stretcher while transporting pt to OR 1. Pt being bagged with jaw thrust manuever in place by KORIN Stringer student. 11:45: Arrival to OR 1. Dr. Newberry and Dr. Portillo present for emergent c/s. Code team arrived for continued care. patient revived and c/s done Patient has been bleeding from C/s site followed by supracervical hysterectomy for severe bleeding Patient transfused multiple units of PRBC, Patient in DIC. Transferred to the ICU 10/03. Patient seen and examined at bedside this morning. Patient is nonresponsive and mechanically ventilated. On pressors. Labs reviewed-has leukocytosis, anemia, thrombocytopenia, ADOLPH and lactic acidosis. Started on IV antibiotics to cover possible sepsis secondary to DIC. Hematology oncology recommendations appreciated-needs additional cryoprecipitate and FFP. Monitor D-dimer, fibrinogen and frequent labs. Nephrology consulted for lactic acidosis and ADOLPH. 10/04. Remains mechanically ventilated. Kevin antibiotics. Labs shows improved acidosis - lactic acid 3.5. Hb drop noted. Getting transfused 2 units PRBCs. Platelet count is ~40k. Continue to monitor labs closely. Critical care team on board. 10/05; xray reviewed, concerning for multifocal infilrate, likely underlying Pneumonia, will add ID consult to assist with management of this critically ill patient, start tube feed, closely monitor renal system 10/06: Resumed care, remains on mechanical ventilation. No active bleeding, H&H stable. Continue to monitor CBC and BMP. Continue IV antibiotic for underlying pneumonia. Follow critical care and ID recommendation. 10/07: Remains on mechanical ventilation. No active bleeding, H&H stable. Critical care following, wean off ventilation as tolerated. 10/08: Patient had another cardiac arrest last night. Remains on mechanical ventilation, update family. Continue supportive care -poor prognosis 10/09: Called patient mother and discussed about patient care and management. Answered all question to best of my knowledge and family satisfaction. Patient remains on mechanical ventilation, cardiac arrest x2 so far. Critically sick, poor prognosis 10/10: remains on mechanical ventilation. h/h stable, no active bleeding. monitor CBC/BMP 10/11: WBC trended up with diarrhea, started on vancomycin po. remains on MV, off pressor, tolerating TF 10/12: remains on MV, off pressor, tolerating TF. called family for update but unable to reach, could not leave message as it was full. cont supportive care, wean off vent as tolerated. 10/13/2020; patient is on mechanical ventilation, tolerating tube feeding. Patient has labored breathing. Neuro was consulted and recommend MRI. Patient is on Precedex. Rectal tube in place. 10/14/2020; patient is on mechanical ventilation, Precedex. Patient had fever and blood culture ordered. Patient is on IV vancomycin per ID recommendation. Neuro consulted and recommend MRI. Continue to monitor. Prognosis is guarded. 10/15/2020; patient is on mechanical ventilation, Precedex. Patient had fever and blood culture ordered. Patient is on IV vancomycin per ID recommendation. Neuro consulted and recommend MRI. Continue to monitor. Prognosis is guarded. 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 12/06/20; anoxic brain injury. Awaiting placement. 12/07/2020; anoxic brain injury, awaiting placement. 12/09/2020; anoxic brain injury, awaiting placement. 12/10/2020; patient had episodes of fever overnight. CBC, BMP, blood culture, UA and chest x-ray ordered, will follow and manage accordingly. Urinalysis is suggestive of UTI and I put the patient on ceftriaxone, order urine culture. Chest x-ray is normal. 12/11/2020; patient is on ceftriaxone day 2 for UTI. We will continue to follow urine culture. 12/12/2020. Day #3 of Rocephin for UTI. We will continue for 2 more days while she is here. Present UTI. 12/13/2020. Day #4 of Rocephin for UTI. Patient remains on 50% with tracheostomy. Remains unresponsive with evidence of anoxic encephalopathy unable to make needs known. 12/14/2020. Day #5 of Rocephin for UTI completed today. Remains encephalopathic unable to make needs known. Remains on 50% unable to decrease oxygen via tracheostomy. Overall prognosis remains extremely poor. 3: Continue to monitor. Stop and monitor antibiotics at this time. Continue to wean oxygen as tolerated. Wean oxygen as tolerated. Case management working on placement. 12/16: Continue supportive care aspiration precautions. Awaiting placement discussion. Monitor fever curve. Prognosis remains poor no evidence of neurological recovery as of today History Interval history: Patient seen and examined, no clinical changes, Hospitalist Physical - Physical exam Narrative exam: VITAL SIGNS: Reviewed. GENERAL: No worsening respiratory distress HEAD: No signs of head trauma. Opens her eyes but no purposeful movement EYES: Pupils are equal. MOUTH: clear NECK: No adenopathy, no JVD. Trach CHEST: Rales posteriorly CARDIAC: normal S1 and S2, without murmurs, gallops, or rubs. ABDOMEN: PEG, Soft, non tender and non distended. surgical wound in tact, No rebound or guarding, and no masses palpated. Bowel Sounds normal. MUSCULOSKELETAL: generalized anasacar NEUROLOGIC EXAM: AWAKE BUT NOT RESPONSIVE SKIN: No obvious lesions - Constitutional Vitals: Temp Pulse Resp BP Pulse Ox 99.8 F H 119 H 18 108/59 99 12/16/20 08:00 12/16/20 10:00 12/16/20 10:00 12/16/20 10:00 12/16/20 10:00 General appearance: Present: no acute distress, other (Patient does move when attempts to clean her tracheostomy and change her diaper otherwise no intelligible words.) HEART Score - HEART Score Age: < 45 Risk factors: 1-2 risk factors - Critical Actions Critical Actions: >7 pts:50-65% risk of adverse cardiac event. Early invasive measures Results - Labs CBC & Chem 7: 12/14/20 10:32 12/16/20 08:00 Labs: Laboratory Last Values WBC 10.3 K/mm3 (4.5-11.0) 12/14/20 10:32 RBC 5.30 M/mm3 (3.65-5.03) H 12/14/20 10:32 Hgb 13.4 gm/dl (10.1-14.3) 12/14/20 10:32 Hgb Comment See scanned result 10/04/20 Unknown Hct 43.0 % (30.3-42.9) H 12/14/20 10:32 MCV 81 fl (79-97) 12/14/20 10:32 MCH 25 pg (28-32) L 12/14/20 10:32 MCHC 31 % (30-34) 12/14/20 10:32 RDW 14.8 % (13.2-15.2) 12/14/20 10:32 Plt Count 347 K/mm3 (140-440) 12/14/20 10:32 Lymph % (Auto) 24.1 % (13.4-35.0) 12/14/20 10:32 [place] % (Auto) 7.8 % (0.0-7.3) H 12/14/20 10:32 Eos % (Auto) 1.5 % (0.0-4.3) 12/14/20 10:32 Baso % (Auto) 0.3 % (0.0-1.8) 12/14/20 10:32 Lymph # (Auto) 2.5 K/mm3 (1.2-5.4) 12/14/20 10:32 [place] # (Auto) 0.8 K/mm3 (0.0-0.8) 12/14/20 10:32 Eos # (Auto) 0.2 K/mm3 (0.0-0.4) 12/14/20 10:32 Baso # (Auto) 0.0 K/mm3 (0.0-0.1) 12/14/20 10:32 Add Manual Diff Complete 12/10/20 09:37 Total Counted 100 12/10/20 09:37 Seg Neutrophils % 66.3 % (40.0-70.0) 12/14/20 10:32 Seg Neuts % (Manual) 81.0 % (40.0-70.0) H 12/10/20 09:37 Band Neutrophils % 2.0 % 10/15/20 05:50 Lymphocytes % (Manual) 17.0 % (13.4-35.0) 12/10/20 09:37 Reactive Lymphs % (Man) 1.0 % 10/02/20 12:18 Monocytes % (Manual) 2.0 % (0.0-7.3) 12/10/20 09:37 Eosinophils % (Manual) 1.0 % (0.0-4.3) 10/29/20 07:56 Myelocytes % 2.0 % 10/02/20 13:05 Metamyelocytes % 1.0 % 10/14/20 04:00 Nucleated RBC % Not Reportable 12/10/20 09:37 Seg Neutrophils # 6.8 K/mm3 (1.8-7.7) 12/14/20 10:32 Seg Neutrophils # Man 10.1 K/mm3 (1.8-7.7) H 12/10/20 09:37 Band Neutrophils # 0.0 K/mm3 12/10/20 09:37 Lymphocytes # (Manual) 2.1 K/mm3 (1.2-5.4) 12/10/20 09:37 Abs React Lymphs (Man) 0.0 K/mm3 12/10/20 09:37 Monocytes # (Manual) 0.3 K/mm3 (0.0-0.8) 12/10/20 09:37 Eosinophils # (Manual) 0.0 K/mm3 (0.0-0.4) 12/10/20 09:37 Basophils # (Manual) 0.0 K/mm3 (0.0-0.1) 12/10/20 09:37 Metamyelocytes # 0.0 K/mm3 12/10/20 09:37 Myelocytes # 0.0 K/mm3 12/10/20 09:37 Promyelocytes # 0.0 K/mm3 12/10/20 09:37 Blast Cells # 0.0 K/mm3 12/10/20 09:37 WBC Morphology Not Reportable 12/10/20 09:37 Hypersegmented Neuts Not Reportable 12/10/20 09:37 Hyposegmented Neuts Not Reportable 12/10/20 09:37 Hypogranular Neuts Not Reportable 12/10/20 09:37 Smudge Cells Not Reportable 12/10/20 09:37 Toxic Granulation Not Reportable 12/10/20 09:37 Toxic Vacuolation Not Reportable 12/10/20 09:37 Dohle Bodies Not Reportable 12/10/20 09:37 Pelger-Huet Anomaly Not Reportable 12/10/20 09:37 Ester Rods Not Reportable 12/10/20 09:37 Platelet Estimate Consistent w auto 12/10/20 09:37 Clumped Platelets Not Reportable 12/10/20 09:37 Plt Clumps, EDTA Not Reportable 12/10/20 09:37 Large Platelets Not Reportable 12/10/20 09:37 Giant Platelets Not Reportable 12/10/20 09:37 Platelet Satelliting Not Reportable 12/10/20 09:37 Plt Morphology Comment Not Reportable 12/10/20 09:37 RBC Morphology Normal 12/10/20 09:37 Dimorphic RBCs Not Reportable 12/10/20 09:37 Polychromasia Not Reportable 12/10/20 09:37 Hypochromasia 1+ 12/10/20 09:37 Poikilocytosis Not Reportable 12/10/20 09:37 Anisocytosis Not Reportable 12/10/20 09:37 Microcytosis Not Reportable 12/10/20 09:37 Macrocytosis Not Reportable 12/10/20 09:37 Spherocytes Not Reportable 12/10/20 09:37 Pappenheimer Bodies Not Reportable 12/10/20 09:37 Sickle Cells Not Reportable 12/10/20 09:37 Target Cells Not Reportable 12/10/20 09:37 Tear Drop Cells Not Reportable 12/10/20 09:37 Ovalocytes Not Reportable 12/10/20 09:37 Stomatocytes Few 10/14/20 04:00 Helmet Cells Not Reportable 12/10/20 09:37 Burk-Altha Bodies Not Reportable 12/10/20 09:37 [place] Rings Not Reportable 12/10/20 09:37 Benedict Cells Not Reportable 12/10/20 09:37 Bite Cells Not Reportable 12/10/20 09:37 Crenated Cell Not Reportable 12/10/20 09:37 Elliptocytes Not Reportable 12/10/20 09:37 Acanthocytes (Spur) Not Reportable 12/10/20 09:37 Rouleaux Not Reportable 12/10/20 09:37 Hemoglobin C Crystals Not Reportable 12/10/20 09:37 Schistocytes Not Reportable 12/10/20 09:37 Malaria parasites Not Reportable 12/10/20 09:37 Sickle Cell Solubility See scanned result 10/04/20 Unknown Hemoglobin A See scanned result 10/04/20 Unknown Hemoglobin A2 See scanned result 10/04/20 Unknown Hemoglobin A2 Prime See scanned result 10/04/20 Unknown Hemoglobin C See scanned result 10/04/20 Unknown Hemoglobin D See scanned result 10/04/20 Unknown Hemoglobin E See scanned result 10/04/20 Unknown Hgb F Diffential Stain See scanned result 10/04/20 Unknown Hemoglobin F Quant See scanned result 10/04/20 Unknown Hemoglobin G See scanned result 10/04/20 Unknown Hemoglobin S See scanned result 10/04/20 Unknown Hemoglobin O[place] See scanned result 10/04/20 Unknown Hemoglobin [place] See scanned result 10/04/20 Unknown Hemoglobin [place] See scanned result 10/04/20 Unknown Variant Hemoglobin See scanned result 10/04/20 Unknown Abnorm Hgb IEF Confirm See scanned result 10/04/20 Unknown Hemoglobin Interpret See scanned result 10/04/20 Unknown Hemoglobinopathy Note See scanned result 10/04/20 Unknown Sharad Bodies Not Reportable 12/10/20 09:37 Hem Pathologist Commnt No 12/10/20 09:37 PT 13.6 Sec. (12.2-14.9) 10/21/20 13:54 INR 1.06 (0.87-1.13) 10/21/20 13:54 APTT 31.6 Sec. (24.2-36.6) 10/03/20 00:40 Fibrinogen 336 mg/dl (211-480) 10/04/20 10:00 D-Dimer 1974.47 ng/mlDDU (0-234) H 11/11/20 13:50 ABG pH 7.459 pH Units (7.350-7.450) H 10/26/20 10:30 POC ABG pCO2 20.7 mmHg (32.0-48.0) L 10/13/20 07:18 ABG pCO2 32.4 mm Hg 10/26/20 10:30 POC ABG pO2 137.9 mmHg (83-108) H 10/13/20 07:18 ABG pO2 112.2 mm Hg (80.0-90.0) H 10/26/20 10:30 POC ABG HCO3 14.8 10/13/20 07:18 ABG HCO3 22.5 mmol/L (20.0-26.0) 10/26/20 10:30 ABG O2 Saturation 98.2 % (95.0-99.0) 10/26/20 10:30 ABG O2 Content 18.5 (0.0-44) 10/26/20 10:30 POC ABG Base Excess -6.9 10/13/20 07:18 ABG Base Excess -0.6 mmol/L (-2.0-3.0) 10/26/20 10:30 ABG Hemoglobin 13.5 gm/dl (12.0-16.0) 10/26/20 10:30 ABG Oxyhemoglobin 98.3 (94-98) H 10/13/20 07:18 ABG Carboxyhemoglobin 1.3 % (0.0-5.0) 10/26/20 10:30 ABG Methemoglobin 0.5 % (0.0-1.5) 10/26/20 10:30 ABG Sodium 135.9 mmol/L (136.0-145.0) L 10/13/20 07:18 ABG Potassium 3.7 mmol/L (3.40-4.50) 10/13/20 07:18 ABG Chloride 111.0 mmol/L (98-107) H 10/13/20 07:18 ABG Glucose 109 mg/dL (65-95) H 10/13/20 07:18 VBG pH 6.949 (7.320-7.420) L* 10/02/20 Unknown Oxyhemoglobin 96.5 % (95.0-99.0) 10/26/20 10:30 Carboxyhemoglobin 0.3 (0.5-1.5) L 10/13/20 07:18 FiO2 25 % 10/26/20 10:30 Sodium 156 mmol/L (137-145) H 12/16/20 08:00 Potassium 4.2 mmol/L (3.6-5.0) 12/16/20 08:00 Chloride 117.9 mmol/L (98-107) H 12/16/20 08:00 Carbon Dioxide 26 mmol/L (22-30) 12/16/20 08:00 Anion Gap 16 mmol/L 12/16/20 08:00 BUN 24 mg/dL (7-17) H 12/16/20 08:00 Creatinine 0.8 mg/dL (0.6-1.2) 12/16/20 08:00 Estimated GFR > 60 ml/min 12/16/20 08:00 BUN/Creatinine Ratio 30 % 12/16/20 08:00 Glucose 109 mg/dL (65-100) H 12/16/20 08:00 POC Glucose 108 mg/dL (70-105) H 12/16/20 05:42 Random Insulin 43.2 uIU/mL (<=19.6) H 11/02/20 19:19 Proinsulin See scanned result 11/02/20 19:19 C-Peptide 6.23 ng/mL (0.80-3.85) H 11/02/20 19:19 Lactic Acid 1.90 mmol/L (0.7-2.0) 10/04/20 22:00 Uric Acid 7.5 mg/dL (3.5-7.6) 10/02/20 13:05 Calcium 9.8 mg/dL (8.4-10.2) 12/16/20 08:00 Ionized Calcium 4.4 mg/dL (4.8-5.6) L 10/07/20 21:00 Phosphorus 4.60 mg/dL (2.5-4.5) H 11/13/20 10:05 Magnesium 2.10 mg/dL (1.7-2.3) 11/13/20 10:05 Total Bilirubin 0.50 mg/dL (0.1-1.2) 12/14/20 09:06 AST 63 units/L (5-40) H 12/14/20 09:06 ALT 42 units/L (7-56) 12/14/20 09:06 Alkaline Phosphatase 107 units/L (35-129) 12/14/20 09:06 Lactate Dehydrogenase 769 units/L (91-180) H 10/02/20 13:05 C-Reactive Protein 0.70 mg/dL (0.00-1.30) 11/11/20 13:50 NT-Pro-B Natriuret Pep 2788 pg/mL (0-450) H 10/04/20 10:00 Total Protein 8.3 g/dL (6.3-8.2) H 12/14/20 09:06 Albumin 3.8 g/dL (3.9-5) L 12/14/20 09:06 Albumin/Globulin Ratio 0.8 % 12/14/20 09:06 Procalcitonin < 0.05 ng/mL (<0.15) 11/11/20 13:50 Arterial Blood Glucose 109 mg/dL (65-95) H 10/13/20 07:18 Arterial Blood Ionized Calcium 4.6 mg/dL (4.6-5.3) 10/13/20 07:18 Urine Color Kelsey (Yellow) 12/10/20 09:25 Urine Turbidity Cloudy (Clear) 12/10/20 09:25 Urine pH 7.0 (5.0-7.0) 12/10/20 09:25 Ur Specific [place] 1.027 (1.003-1.030) 12/10/20 09:25 Urine Protein 100 mg/dl mg/dL (Negative) 12/10/20 09:25 Urine Glucose (UA) Neg mg/dL (Negative) 12/10/20 09:25 Urine Ketones Neg mg/dL (Negative) 12/10/20 09:25 Urine Blood Sm (Negative) 12/10/20 09:25 Urine Nitrite Neg (Negative) 12/10/20 09:25 Urine Bilirubin Neg (Negative) 12/10/20 09:25 Urine Urobilinogen 4.0 mg/dL (<2.0) 12/10/20 09:25 Ur Leukocyte Esterase Mod (Negative) 12/10/20 09:25 Urine WBC (Auto) 50.0 /HPF (0.0-6.0) H 12/10/20 09:25 Urine RBC (Auto) 27.0 /HPF (0.0-6.0) 12/10/20 09:25 U Epithel Cells (Auto) 8.0 /HPF (0-13.0) 12/10/20 09:25 Urine Bacteria (Auto) 4+ /HPF (Negative) 11/11/20 13:50 Urine WBC Clumps 3+ /HPF 11/11/20 13:50 Calcium Oxalate Crystal Few 11/11/20 13:50 Urine Mucus Few /HPF 11/11/20 13:50 Urine Yeast (Budding) 2+ /HPF 12/10/20 09:25 Vancomycin Trough 12.6 ug/mL (5.0-20.0) 10/21/20 13:54 Random Vancomycin 10.7 ug/mL (0-40.0) 10/16/20 13:09 Phenytoin 5.7 ug/mL (10.0-20.0) L 10/13/20 07:00 C. difficile Tox (PCR) Positive (Negative) 10/16/20 10:22 Coronavirus (PCR) Negative (Negative) 10/08/20 14:15 Blood Type O POSITIVE 10/02/20 12:50 Antibody Screen Negative 10/02/20 12:50 Crossmatch See Detail 10/02/20 12:50 Microbiology: Microbiology 12/10/20 10:13 Peripheral/Venous Blood Culture - Final NO GROWTH AFTER 5 DAYS 12/10/20 09:37 Peripheral/Venous Blood Culture - Final NO GROWTH AFTER 5 DAYS - Diagnostic Impressions Diagnostic Impressions: Echocardiogram 10/03/20 13:42 Transthoracic Echocardiogram Indication: S/P Cardiac Arrest R/O Cardiomyopathy BP: 133/71 Conclusions *Global left ventricular systolic function is normal. *The estimated ejection fraction is 60-65%. *There is trace of mitral regurgitation. *The right 0heart chambers are both slightly dilated. *There is mild tricuspid regurgitation. *There is mild-moderate pulmonary hypertension. *The right ventricular systolic pressure is calculated at 44 mmHg. *The study quality is technically difficult. Findings Procedure Info: The study quality is technically difficult. The study is technically limited due to patient body habitus. The study was technically limited due to the patient's inability to lay in the left lateral decubitus position. Left Ventricle: The left ventricular chamber size is normal. There is no left ventricular hypertrophy. Global left ventricular systolic function is normal. The estimated ejection fraction is 60-65%. Left Atrium: The left atrial chamber size is normal. Right Ventricle: The right ventricle is slightly dilated. Right Atrium: The right atrium is mildly dilated. Aortic Valve: The aortic valve leaflets are mildly thickened. There is no evidence of aortic regurgitation. There is no evidence of aortic stenosis. Mitral Valve: The mitral valve leaflets are mildly thickened. There is trace of mitral regurgitation. There is no evidence of mitral stenosis. Tricuspid Valve: There is mild tricuspid regurgitation. The right ventricular systolic pressure is calculated at 44 mmHg. There is evidence of mild pulmonary hypertension. Pulmonic Valve: There is trace pulmonic regurgitation. Pericardium: There is no pericardial effusion. Aorta: There is no dilatation of the ascending aorta. There is no dilatation of the aortic root. Venous: The inferior vena cava is dilated. Measurements Chambers 2D Name Value Normal Range IVSd (2D) 1 cm (0.6 - 1.1) LVPWd (2D) 1.01 cm (0.6 - 1.1) LVIDd (2D) 4.58 cm (3.7 - 5.6) LVIDs (2D) 3.17 cm (2 - 3.8) LV FS (2D) 30.93 % - EF Teichholz (2D) 58.66 % - Ao root diameter (2D) 2.94 cm (2 - 3.7) Volumes/Mass Name Value Normal Range LA ESV SP 4CH (A/L) 72.82 ml - LA ESV SP 2CH (A/L) 66.86 ml - LA ESV BP (A/L) 74.49 ml - LA ESV SP 4CH (MOD) 71.03 ml - LA ESV SP 2CH (MOD) 64.3 ml - LV EDV SP 4CH (MOD) 98.82 ml - LV ESV SP 4CH (MOD) 24.8 ml - EF SP 4CH (MOD) 74.9 % - LV EDV SP 2CH (MOD) 86.1 ml - LV ESV SP 2CH (MOD) 36.93 ml - EF SP 2CH (MOD) 57.11 % - LV EDV BP 94.4 ml - LV ESV BP 32.66 ml - BP EF (MOD) 65.4 % - Diastolic/Systolic Function Name Value Normal Range MV E-wave Vmax 1.04 m/sec - MV deceleration time 160.46 msec - MV A-wave Vmax 0.92 m/sec - MV E:A ratio 1.14 ratio - Aortic Valve Name Value Normal Range AV Vmax 2.12 m/sec - AV VTI 22.37 cm - AV peak gradient 17.95 mmHg - AV mean gradient 7.29 mmHg - LVOT diameter 2.01 cm - LVOT Vmax 1.8 m/sec - LVOT VTI 27.17 cm - LVOT peak gradient 12.91 mmHg - LVOT mean gradient 6.83 mmHg - SV LVOT 86.42 ml - ANITA (continuity Vmax) 2.7 cm2 - ANITA (continuity VTI) 3.86 cm2 - Ascending Ao 3.18 cm - Tricuspid Valve Name Value Normal Range TV E-wave Vmax 0.88 m/sec - TR Vmax 3.01 m/sec - TR peak gradient 36.27 mmHg - RAP 8 mmHg - RVSP 44 mmHg - IVC diameter 2.65 cm (1.2 - 2.3) Pulmonic Valve/Qp:Qs Name Value Normal Range PV Vmax 1.22 m/sec - PV peak gradient 5.91 mmHg - RVOT Vmax 0.87 m/sec - RVOT VTI 13.32 cm - RVOT peak gradient 3 mmHg - PV acceleration time 110.37 msec - [place]/IV: Voiding Method External Female Catheter IV Catheter Type [Right Foot] INT / Saline Lock IV Catheter Type [Left Forearm Peripheral IV ] IV Catheter Type [Left Wrist] INT / Saline Lock IV Catheter Type [Right Hand] INT / Saline Lock IV Catheter Type [Right INT / Saline Lock Antecubital] IV Catheter Type [Right Upper Mid-line arm] IV Catheter Type [Left Triple Lumen Cath Internal Jugular] IV Catheter Type [Left Hand] Peripheral IV IV Catheter Type [Left Peripheral IV Antecubital] Active Medications - Current Medications Current Medications: Generic Name Dose Route Start Last Admin Trade Name Freq PRN Reason Stop Dose Admin Acetaminophen 650 mg 10/05/20 16:34 12/13/20 21:08 Acetaminophen 325 Mg/10.15 Ml Oral Liqd Unit Dose FEEDTUBE 650 mg Q6H PRN Administration Non Cardiac Pain or Temp>100.5 Albuterol 2.5 mg 11/05/20 13:03 11/06/20 13:04 Albuterol 2.5 Mg/3 Ml Nebu IH 2.5 mg Q4HRT PRN Administration Shortness Of Breath Lipase/Protease/Amylase 1 each 10/05/20 11:09 Lipase 10,500/Protease 25,000/Amylase 43,750 (Units) Dr Barakat FEEDTUBE PRN PRN For Clogged Feeding Tube Enoxaparin Sodium 40 mg 10/22/20 10:00 12/16/20 10:12 Enoxaparin 40 Mg/0.4 Ml Inj SUB-Q 40 mg DAILY ERINN Administration Protocol Famotidine 20 mg 10/07/20 10:00 12/16/20 10:11 Famotidine 20 Mg Tab PO 20 mg BID ERINN Administration Furosemide 40 mg 10/17/20 10:00 12/16/20 10:11 Furosemide 40 Mg Tab PO 40 mg QDAY ERINN Administration Hydralazine HCl 20 mg 10/07/20 11:49 10/17/20 07:20 Hydralazine 20 Mg/1 Ml Inj IV 20 mg Q6H PRN Administration SBP >170 Dextrose 1,000 mls @ 42 mls/hr 12/15/20 11:00 12/16/20 08:15 D5w IV 42 mls/hr DIRECT ERINN Administration Simple Syrup 15 ml 10/05/20 11:09 Simple Syrup 15 Ml FEEDTUBE PRN PRN Hypoglycemia Simple Syrup 30 ml 10/05/20 11:09 Simple Syrup 15 Ml FEEDTUBE PRN PRN Hypoglycemia Sodium Bicarbonate 325 mg 10/05/20 11:09 12/16/20 08:19 Sodium Bicarbonate 325 Mg Tab FEEDTUBE 325 mg PRN PRN Administration For Clogged Feeding Tube Nutrition/Malnutrition Assess - Dietary Evaluation Nutrition/Malnutrition Findings: Nutrition Notes Start: 10/04/20 11:13 Freq: Status: Active Protocol: Document 12/15/20 11:19 AL (Rec: 12/15/20 11:25 AL [id number]) Co-Sign 12/15/20 11:19 LP Nutrition Notes Initial or Follow up Reassessment Current Diagnosis Respiratory Failure Other Pertinent Diagnosis C-Diff, Cardiac arrest, s/p c- section and supracervical hysterectomy, Brain Current Diet Jevity 1.2 at 60 mL/hr Labs/Tests Na 155 Pertinent Medications Lasix Sodium Bicarb Height 5 ft 8 in Weight 96.1 kg [place] Body Weight (kg) 63.63 BMI 32.2 Weight change and time frame Wt change noted, pt on Lasix Weight Status Obese Subjective/Other Information FU fot TF tolerance. TF is running at 60 ml/hr (goal rate ). Pt hypernatremic. Spoke to RN about adjusting flush to 250 ml q4h to treat hypernatremia Percent of energy/protein needs met: 81%/100% Burn Absent Trauma Absent GI Symptoms None Food Allergy Yes Current % PO Negligible Minimum of two criteria Yes Interpretation of Weight Loss (severe) >2% in 1 week Fluid Accumulation Mild (non-severe) #2 Nutrition Diagnosis Malnutrition Diagnosis Progress(for reassessment Continues documentation) #1 Nutrition Diagnosis Inadequate oral intake Diagnosis Progress(for reassessment Continues documentation) Is patient on ventilator? No Is Patient Ambulatory and/or Out of Bed No REE-([facility]-confined to bed) 2064.320 Kcal/Kg value to use for calculation 17 Approximate Energy Requirements Using 1634 kcal/Kg Calculation Used for Recommendations Kcal/kg Additional Notes PRO needs: 65-81 (0.8-1 g/kg AdBW 81kg) Fluid needs: 1 mL/kcal or per MD Nutrition Intervention Change Diet Order: Continue TF Nutrition Support: Jevity 1.2 at 60ml/hr. Flush 100ml q4h. Flush 250 ml q4h for Hypernatremia. Once hypernatremia is resolved, flush 100 q4h. Kcal 1,728 Protein (gm) 80 Fluid (mL) 1,162 Goal #1 TF tolerance Goal #2 Meet at least 75% of energy and protein needs Anticipated Discharge Needs: Unable to determine at this time Follow-Up By: 12/17/20 Additional Comments FU for stable TF and Na labs ( hypernatremia).
[2020-12-16] MEDS: ACETAMINOPHEN 325 MG/10.15 ML ORAL LIQD UNIT DOSE FEEDTUBE PRN (19:44)
[2020-12-17] MEDS: DEXTROSE 5% IN WATER 1,000 ML IV SCH (06:22)
[2020-12-17] MEDS: FAMOTIDINE 20 MG TAB PO SCH ×2 (09:33→21:35)
[2020-12-17] MEDS: FUROSEMIDE 40 MG TAB PO SCH (09:33)
[2020-12-17] MEDS: ENOXAPARIN 40 MG/0.4 ML INJ SUB-Q SCH (09:34)
--- NOTE | 2020-12-17 10:33 | XRay Report ---
CHEST 1 VIEW 12/17/2020 9:46 AM INDICATION / CLINICAL INFORMATION: fever. COMPARISON: 12/10/2020 FINDINGS: SUPPORT DEVICES: Satisfactory appearance of the tracheostomy tube allowing for patient positioning. HEART / MEDIASTINUM: Stable. LUNGS / PLEURA: No significant pulmonary or pleural abnormality. No pneumothorax. ADDITIONAL FINDINGS: No significant additional findings. IMPRESSION: 1. No acute findings. Signer Name: Harlan Lee MD Signed: 12/17/2020 10:28 AM Workstation Name: [id number]
--- NOTE | 2020-12-17 13:07 | Progress Note ---
Assessment and Plan Assessment and plan: Eclampsia/HELLP Syndrome, ADOLPH, DIC; s/p , s/p supracervical hyst 30 year old -[place] female CHE 10/25/20 at 36w5d who presents with seizures in triage on 10/02/20. Pt was not able to provide history but per pt's , she presented to the hospital to return a 24 hour urine specimen for analysis. She then suddenly reported that she did not feel good. She was taken to labor and delivery and shortly after arrival, she began seizing. During this time, a code met was called because the patient became hypoxic. She was then noted to be without a pulse. Chest compressions were started immediately, and the patient was emergently taken to the operating room for delivery of the fetus. Off note, This patient has had care at [facility] with comanagement by [facility] since 11 wks complicated by ADHD, morbid obesity, generalized anxiety disorder, panic attacks, chronic narcotic use, fibromyalgia, GERD, Irritable Bowel Syndrome, Migraines, h/o endometrial ablation and ovarian vein embolization, genital herpes, insomnia, LGA fetus, nausea and vomiting, polyhydramnios, quad screen positive for Down's Syndrome, and previous x 3. She is GBS negative. -- Sepsis with presumed Pneumonia Teated with iv abx, follow Cx -Completed cefepime course 5 days on 10/09/2020 -Check MRSA culture -Start vancomycin p.o. empirically for C. difficile total 10 days, given diarrhea and worsening leukocytosis, --Acute respiratory failure with hypoxia Patient extubated. --DIC (disseminated intravascular coagulation) vs HELLP syndrome Has anemia,thrombocytopenia and elevated liver enzymes Patient received multiple units of RBCs, FFP's, cryo at present not requiring transfusion. Has resolved H&H is 12 and 37. Hemoglobin hematocrit remained stable pending today. Hematology/oncology recommendations appreciated Continue to trend fibrinogen and INR Hemoglobin hematocrit remains stable today. Follow platelets transfuse as necessary. --Possible Eclampsia/HELLP Syndrome Patient presented with seizure-->hypoxia-->urgent C section-->hysterectomy for severe bleeding/DIC developed severe anemia-->received RBC, plt, FFP, cryo was on max pressors-->now off pressors still on vent, on sedation tracheostomy. 50% now. Hematology following --s/p Cardiac arrest x2 on admission and on 10/07 ACLS protocol followed by revival Echo showed preserved Ef --Shock-resolved now awaiting placement s/p pressor support Likely hypovolemic. on empirical antibiotics for possible sepsis. Continue to monitor blood pressure closely Trend H&H repeated H&H today stable not requiring transfusion. -- Hypernatremia --Lactic acidosis also resolving. As a result of poor organ perfusion and possible sepsis Continue IV hydration. Lactic acid is trending down Nephrology on board Overall prognosis extremely poor. --ADOLPH-resolved As a result of hypoperfusion and shock Continue IV hydration Cr stable, will follow up in the a.m. has been hemodynamically stable overall prognosis poor Even more quality of life extremely poor --DVT prophylaxis Patient presented with DIC No anticoagulants UTI -Was not present on admission -Diagnosed on 12/10/2020 Last day of Rocephin. 11:30: Pt brought to L&D triage for evaluation of possible labor. Pt accompanied by her spouse. Pt spouse poor historian; unable to obtain history- allergies at this time. Pt taken from registration to triage area via WC. Pt unresponsive, actively seizing with snorous respirations. machine woodworking sander, Kassy, called and requesting assistance. 11:35: Multiple staff at bedside. Pt 02 sat 67% on nonrebreather, unable to read BP at this time. Yifan Theodore CRNA, at bedside for intubation and assistance with IV insertion. INT attempt by multiple RNs unsuccessful at this time. 11:42: Pt being bagged by KORIN, 02% 79%. No pulse palpated, compressions started at this time; bharati young called and Dr. Newberry preparing OR for emergent c/s. 11:44: Continued compressions on stretcher while transporting pt to OR 1. Pt being bagged with jaw thrust manuever in place by KORIN Stringer student. 11:45: Arrival to OR 1. Dr. Newberry and Dr. Portillo present for emergent c/s. Code team arrived for continued care. patient revived and c/s done Patient has been bleeding from C/s site followed by supracervical hysterectomy for severe bleeding Patient transfused multiple units of PRBC, Patient in DIC. Transferred to the ICU 10/03. Patient seen and examined at bedside this morning. Patient is nonresponsive and mechanically ventilated. On pressors. Labs reviewed-has leukocytosis, anemia, thrombocytopenia, ADOLPH and lactic acidosis. Started on IV antibiotics to cover possible sepsis secondary to DIC. Hematology oncology recommendations appreciated-needs additional cryoprecipitate and FFP. Monitor D-dimer, fibrinogen and frequent labs. Nephrology consulted for lactic acidosis and ADOLPH. 10/04. Remains mechanically ventilated. Kevin antibiotics. Labs shows improved acidosis - lactic acid 3.5. Hb drop noted. Getting transfused 2 units PRBCs. Platelet count is ~40k. Continue to monitor labs closely. Critical care team on board. 10/05; xray reviewed, concerning for multifocal infilrate, likely underlying Pneumonia, will add ID consult to assist with management of this critically ill patient, start tube feed, closely monitor renal system 10/06: Resumed care, remains on mechanical ventilation. No active bleeding, H&H stable. Continue to monitor CBC and BMP. Continue IV antibiotic for underlying pneumonia. Follow critical care and ID recommendation. 10/07: Remains on mechanical ventilation. No active bleeding, H&H stable. Critical care following, wean off ventilation as tolerated. 10/08: Patient had another cardiac arrest last night. Remains on mechanical ventilation, update family. Continue supportive care -poor prognosis 10/09: Called patient mother and discussed about patient care and management. Answered all question to best of my knowledge and family satisfaction. Patient remains on mechanical ventilation, cardiac arrest x2 so far. Critically sick, poor prognosis 10/10: remains on mechanical ventilation. h/h stable, no active bleeding. monitor CBC/BMP 10/11: WBC trended up with diarrhea, started on vancomycin po. remains on MV, off pressor, tolerating TF 10/12: remains on MV, off pressor, tolerating TF. called family for update but unable to reach, could not leave message as it was full. cont supportive care, wean off vent as tolerated. 10/13/2020; patient is on mechanical ventilation, tolerating tube feeding. Patient has labored breathing. Neuro was consulted and recommend MRI. Patient is on Precedex. Rectal tube in place. 10/14/2020; patient is on mechanical ventilation, Precedex. Patient had fever and blood culture ordered. Patient is on IV vancomycin per ID recommendation. Neuro consulted and recommend MRI. Continue to monitor. Prognosis is guarded. 10/15/2020; patient is on mechanical ventilation, Precedex. Patient had fever and blood culture ordered. Patient is on IV vancomycin per ID recommendation. Neuro consulted and recommend MRI. Continue to monitor. Prognosis is guarded. 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 12/06/20; anoxic brain injury. Awaiting placement. 12/07/2020; anoxic brain injury, awaiting placement. 12/09/2020; anoxic brain injury, awaiting placement. 12/10/2020; patient had episodes of fever overnight. CBC, BMP, blood culture, UA and chest x-ray ordered, will follow and manage accordingly. Urinalysis is suggestive of UTI and I put the patient on ceftriaxone, order urine culture. Chest x-ray is normal. 12/11/2020; patient is on ceftriaxone day 2 for UTI. We will continue to follow urine culture. 12/12/2020. Day #3 of Rocephin for UTI. We will continue for 2 more days while she is here. Present UTI. 12/13/2020. Day #4 of Rocephin for UTI. Patient remains on 50% with tracheostomy. Remains unresponsive with evidence of anoxic encephalopathy unable to make needs known. 12/14/2020. Day #5 of Rocephin for UTI completed today. Remains encephalopathic unable to make needs known. Remains on 50% unable to decrease oxygen via tracheostomy. Overall prognosis remains extremely poor. 3/2: Continue to monitor. Stop and monitor antibiotics at this time. Continue to wean oxygen as tolerated. Wean oxygen as tolerated. Case management working on placement. 3: Continue supportive care aspiration precautions. Awaiting placement discussion. Monitor fever curve. Prognosis remains poor no evidence of neurological recovery as of today 3/4: Continue supportive care, check labs and chest xray. Still monitor off antibiotics. Monitor Sodium level History Interval history: Patient seen and examined, no clinical changes, although with low grade intermittent fever Hospitalist Physical - Physical exam Narrative exam: VITAL SIGNS: Reviewed. GENERAL: No worsening respiratory distress HEAD: No signs of head trauma. Opens her eyes but no purposeful movement EYES: Pupils are equal. MOUTH: clear NECK: No adenopathy, no JVD. Trach CHEST: Rales posteriorly CARDIAC: normal S1 and S2, without murmurs, gallops, or rubs. ABDOMEN: PEG, Soft, non tender and non distended. surgical wound in tact, No rebound or guarding, and no masses palpated. Bowel Sounds normal. MUSCULOSKELETAL: Generalized anasacar NEUROLOGIC EXAM: AWAKE BUT NOT RESPONSIVE SKIN: No obvious lesions - Constitutional Vitals: Temp Pulse Resp BP Pulse Ox 98.4 F 118 H 8 L 138/90 98 12/17/20 12:00 12/17/20 11:58 12/17/20 11:00 12/17/20 11:00 12/17/20 11:00 General appearance: Present: no acute distress, other (Patient does move when attempts to clean her tracheostomy and change her diaper otherwise no intelligible words.) HEART Score - HEART Score Age: < 45 Risk factors: 1-2 risk factors - Critical Actions Critical Actions: >7 pts:50-65% risk of adverse cardiac event. Early invasive measures Results - Labs CBC & Chem 7: 12/14/20 10:32 12/16/20 08:00 Labs: Laboratory Last Values WBC 10.3 K/mm3 (4.5-11.0) 12/14/20 10:32 RBC 5.30 M/mm3 (3.65-5.03) H 12/14/20 10:32 Hgb 13.4 gm/dl (10.1-14.3) 12/14/20 10:32 Hgb Comment See scanned result 10/04/20 Unknown Hct 43.0 % (30.3-42.9) H 12/14/20 10:32 MCV 81 fl (79-97) 12/14/20 10:32 MCH 25 pg (28-32) L 12/14/20 10:32 MCHC 31 % (30-34) 12/14/20 10:32 RDW 14.8 % (13.2-15.2) 12/14/20 10:32 Plt Count 347 K/mm3 (140-440) 12/14/20 10:32 Lymph % (Auto) 24.1 % (13.4-35.0) 12/14/20 10:32 Treasure % (Auto) 7.8 % (0.0-7.3) H 12/14/20 10:32 Eos % (Auto) 1.5 % (0.0-4.3) 12/14/20 10:32 Baso % (Auto) 0.3 % (0.0-1.8) 12/14/20 10:32 Lymph # (Auto) 2.5 K/mm3 (1.2-5.4) 12/14/20 10:32 Treasure # (Auto) 0.8 K/mm3 (0.0-0.8) 12/14/20 10:32 Eos # (Auto) 0.2 K/mm3 (0.0-0.4) 12/14/20 10:32 Baso # (Auto) 0.0 K/mm3 (0.0-0.1) 12/14/20 10:32 Add Manual Diff Complete 12/10/20 09:37 Total Counted 100 12/10/20 09:37 Seg Neutrophils % 66.3 % (40.0-70.0) 12/14/20 10:32 Seg Neuts % (Manual) 81.0 % (40.0-70.0) H 12/10/20 09:37 Band Neutrophils % 2.0 % 10/15/20 05:50 Lymphocytes % (Manual) 17.0 % (13.4-35.0) 12/10/20 09:37 Reactive Lymphs % (Man) 1.0 % 10/02/20 12:18 Monocytes % (Manual) 2.0 % (0.0-7.3) 12/10/20 09:37 Eosinophils % (Manual) 1.0 % (0.0-4.3) 10/29/20 07:56 Myelocytes % 2.0 % 10/02/20 13:05 Metamyelocytes % 1.0 % 10/14/20 04:00 Nucleated RBC % Not Reportable 12/10/20 09:37 Seg Neutrophils # 6.8 K/mm3 (1.8-7.7) 12/14/20 10:32 Seg Neutrophils # Man 10.1 K/mm3 (1.8-7.7) H 12/10/20 09:37 Band Neutrophils # 0.0 K/mm3 12/10/20 09:37 Lymphocytes # (Manual) 2.1 K/mm3 (1.2-5.4) 12/10/20 09:37 Abs React Lymphs (Man) 0.0 K/mm3 12/10/20 09:37 Monocytes # (Manual) 0.3 K/mm3 (0.0-0.8) 12/10/20 09:37 Eosinophils # (Manual) 0.0 K/mm3 (0.0-0.4) 12/10/20 09:37 Basophils # (Manual) 0.0 K/mm3 (0.0-0.1) 12/10/20 09:37 Metamyelocytes # 0.0 K/mm3 12/10/20 09:37 Myelocytes # 0.0 K/mm3 12/10/20 09:37 Promyelocytes # 0.0 K/mm3 12/10/20 09:37 Blast Cells # 0.0 K/mm3 12/10/20 09:37 WBC Morphology Not Reportable 12/10/20 09:37 Hypersegmented Neuts Not Reportable 12/10/20 09:37 Hyposegmented Neuts Not Reportable 12/10/20 09:37 Hypogranular Neuts Not Reportable 12/10/20 09:37 Smudge Cells Not Reportable 12/10/20 09:37 Toxic Granulation Not Reportable 12/10/20 09:37 Toxic Vacuolation Not Reportable 12/10/20 09:37 Dohle Bodies Not Reportable 12/10/20 09:37 Pelger-Huet Anomaly Not Reportable 12/10/20 09:37 Ester Rods Not Reportable 12/10/20 09:37 Platelet Estimate Consistent w auto 12/10/20 09:37 Clumped Platelets Not Reportable 12/10/20 09:37 Plt Clumps, EDTA Not Reportable 12/10/20 09:37 Large Platelets Not Reportable 12/10/20 09:37 Giant Platelets Not Reportable 12/10/20 09:37 Platelet Satelliting Not Reportable 12/10/20 09:37 Plt Morphology Comment Not Reportable 12/10/20 09:37 RBC Morphology Normal 12/10/20 09:37 Dimorphic RBCs Not Reportable 12/10/20 09:37 Polychromasia Not Reportable 12/10/20 09:37 Hypochromasia 1+ 12/10/20 09:37 Poikilocytosis Not Reportable 12/10/20 09:37 Anisocytosis Not Reportable 12/10/20 09:37 Microcytosis Not Reportable 12/10/20 09:37 Macrocytosis Not Reportable 12/10/20 09:37 Spherocytes Not Reportable 12/10/20 09:37 Pappenheimer Bodies Not Reportable 12/10/20 09:37 Sickle Cells Not Reportable 12/10/20 09:37 Target Cells Not Reportable 12/10/20 09:37 Tear Drop Cells Not Reportable 12/10/20 09:37 Ovalocytes Not Reportable 12/10/20 09:37 Stomatocytes Few 10/14/20 04:00 Helmet Cells Not Reportable 12/10/20 09:37 [place] Bodies Not Reportable 12/10/20 09:37 Mcfarland Rings Not Reportable 12/10/20 09:37 [place] Cells Not Reportable 12/10/20 09:37 Bite Cells Not Reportable 12/10/20 09:37 Crenated Cell Not Reportable 12/10/20 09:37 Elliptocytes Not Reportable 12/10/20 09:37 Acanthocytes (Spur) Not Reportable 12/10/20 09:37 Rouleaux Not Reportable 12/10/20 09:37 Hemoglobin C Crystals Not Reportable 12/10/20 09:37 Schistocytes Not Reportable 12/10/20 09:37 Malaria parasites Not Reportable 12/10/20 09:37 Sickle Cell Solubility See scanned result 10/04/20 Unknown Hemoglobin A See scanned result 10/04/20 Unknown Hemoglobin A2 See scanned result 10/04/20 Unknown Hemoglobin A2 Prime See scanned result 10/04/20 Unknown Hemoglobin C See scanned result 10/04/20 Unknown Hemoglobin D See scanned result 10/04/20 Unknown Hemoglobin E See scanned result 10/04/20 Unknown Hgb F Diffential Stain See scanned result 10/04/20 Unknown Hemoglobin F Quant See scanned result 10/04/20 Unknown Hemoglobin G See scanned result 10/04/20 Unknown Hemoglobin S See scanned result 10/04/20 Unknown Hemoglobin O-Creight[place] See scanned result 10/04/20 Unknown Hemoglobin B[place] See scanned result 10/04/20 Unknown Hemoglobin Analilia See scanned result 10/04/20 Unknown Variant Hemoglobin See scanned result 10/04/20 Unknown Abnorm Hgb IEF Confirm See scanned result 10/04/20 Unknown Hemoglobin Interpret See scanned result 10/04/20 Unknown Hemoglobinopathy Note See scanned result 10/04/20 Unknown Sharad Bodies Not Reportable 12/10/20 09:37 Hem Pathologist Commnt No 12/10/20 09:37 PT 13.6 Sec. (12.2-14.9) 10/21/20 13:54 INR 1.06 (0.87-1.13) 10/21/20 13:54 APTT 31.6 Sec. (24.2-36.6) 10/03/20 00:40 Fibrinogen 336 mg/dl (211-480) 10/04/20 10:00 D-Dimer 1974.47 ng/mlDDU (0-234) H 11/11/20 13:50 ABG pH 7.459 pH Units (7.350-7.450) H 10/26/20 10:30 POC ABG pCO2 20.7 mmHg (32.0-48.0) L 10/13/20 07:18 ABG pCO2 32.4 mm Hg 10/26/20 10:30 POC ABG pO2 137.9 mmHg (83-108) H 10/13/20 07:18 ABG pO2 112.2 mm Hg (80.0-90.0) H 10/26/20 10:30 POC ABG HCO3 14.8 10/13/20 07:18 ABG HCO3 22.5 mmol/L (20.0-26.0) 10/26/20 10:30 ABG O2 Saturation 98.2 % (95.0-99.0) 10/26/20 10:30 ABG O2 Content 18.5 (0.0-44) 10/26/20 10:30 POC ABG Base Excess -6.9 10/13/20 07:18 ABG Base Excess -0.6 mmol/L (-2.0-3.0) 10/26/20 10:30 ABG Hemoglobin 13.5 gm/dl (12.0-16.0) 10/26/20 10:30 ABG Oxyhemoglobin 98.3 (94-98) H 10/13/20 07:18 ABG Carboxyhemoglobin 1.3 % (0.0-5.0) 10/26/20 10:30 ABG Methemoglobin 0.5 % (0.0-1.5) 10/26/20 10:30 ABG Sodium 135.9 mmol/L (136.0-145.0) L 10/13/20 07:18 ABG Potassium 3.7 mmol/L (3.40-4.50) 10/13/20 07:18 ABG Chloride 111.0 mmol/L (98-107) H 10/13/20 07:18 ABG Glucose 109 mg/dL (65-95) H 10/13/20 07:18 VBG pH 6.949 (7.320-7.420) L* 10/02/20 Unknown Oxyhemoglobin 96.5 % (95.0-99.0) 10/26/20 10:30 Carboxyhemoglobin 0.3 (0.5-1.5) L 10/13/20 07:18 FiO2 25 % 10/26/20 10:30 Sodium 156 mmol/L (137-145) H 12/16/20 08:00 Potassium 4.2 mmol/L (3.6-5.0) 12/16/20 08:00 Chloride 117.9 mmol/L (98-107) H 12/16/20 08:00 Carbon Dioxide 26 mmol/L (22-30) 12/16/20 08:00 Anion Gap 16 mmol/L 12/16/20 08:00 BUN 24 mg/dL (7-17) H 12/16/20 08:00 Creatinine 0.8 mg/dL (0.6-1.2) 12/16/20 08:00 Estimated GFR > 60 ml/min 12/16/20 08:00 BUN/Creatinine Ratio 30 % 12/16/20 08:00 Glucose 109 mg/dL (65-100) H 12/16/20 08:00 POC Glucose 108 mg/dL (70-105) H 12/17/20 11:41 Random Insulin 43.2 uIU/mL (<=19.6) H 11/02/20 19:19 Proinsulin See scanned result 11/02/20 19:19 C-Peptide 6.23 ng/mL (0.80-3.85) H 11/02/20 19:19 Lactic Acid 1.90 mmol/L (0.7-2.0) 10/04/20 22:00 Uric Acid 7.5 mg/dL (3.5-7.6) 10/02/20 13:05 Calcium 9.8 mg/dL (8.4-10.2) 12/16/20 08:00 Ionized Calcium 4.4 mg/dL (4.8-5.6) L 10/07/20 21:00 Phosphorus 4.60 mg/dL (2.5-4.5) H 11/13/20 10:05 Magnesium 2.10 mg/dL (1.7-2.3) 11/13/20 10:05 Total Bilirubin 0.50 mg/dL (0.1-1.2) 12/14/20 09:06 AST 63 units/L (5-40) H 12/14/20 09:06 ALT 42 units/L (7-56) 12/14/20 09:06 Alkaline Phosphatase 107 units/L (35-129) 12/14/20 09:06 Lactate Dehydrogenase 769 units/L (91-180) H 10/02/20 13:05 C-Reactive Protein 0.70 mg/dL (0.00-1.30) 11/11/20 13:50 NT-Pro-B Natriuret Pep 2788 pg/mL (0-450) H 10/04/20 10:00 Total Protein 8.3 g/dL (6.3-8.2) H 12/14/20 09:06 Albumin 3.8 g/dL (3.9-5) L 12/14/20 09:06 Albumin/Globulin Ratio 0.8 % 12/14/20 09:06 Procalcitonin < 0.05 ng/mL (<0.15) 11/11/20 13:50 Arterial Blood Glucose 109 mg/dL (65-95) H 10/13/20 07:18 Arterial Blood Ionized Calcium 4.6 mg/dL (4.6-5.3) 10/13/20 07:18 Urine Color Kelsey (Yellow) 12/10/20 09:25 Urine Turbidity Cloudy (Clear) 12/10/20 09:25 Urine pH 7.0 (5.0-7.0) 12/10/20 09:25 Ur Specific Mellott 1.027 (1.003-1.030) 12/10/20 09:25 Urine Protein 100 mg/dl mg/dL (Negative) 12/10/20 09:25 Urine Glucose (UA) Neg mg/dL (Negative) 12/10/20 09:25 Urine Ketones Neg mg/dL (Negative) 12/10/20 09:25 Urine Blood Sm (Negative) 12/10/20 09:25 Urine Nitrite Neg (Negative) 12/10/20 09:25 Urine Bilirubin Neg (Negative) 12/10/20 09:25 Urine Urobilinogen 4.0 mg/dL (<2.0) 12/10/20 09:25 Ur Leukocyte Esterase Mod (Negative) 12/10/20 09:25 Urine WBC (Auto) 50.0 /HPF (0.0-6.0) H 12/10/20 09:25 Urine RBC (Auto) 27.0 /HPF (0.0-6.0) 12/10/20 09:25 U Epithel Cells (Auto) 8.0 /HPF (0-13.0) 12/10/20 09:25 Urine Bacteria (Auto) 4+ /HPF (Negative) 11/11/20 13:50 Urine WBC Clumps 3+ /HPF 11/11/20 13:50 Calcium Oxalate Crystal Few 11/11/20 13:50 Urine Mucus Few /HPF 11/11/20 13:50 Urine Yeast (Budding) 2+ /HPF 12/10/20 09:25 Vancomycin Trough 12.6 ug/mL (5.0-20.0) 10/21/20 13:54 Random Vancomycin 10.7 ug/mL (0-40.0) 10/16/20 13:09 Phenytoin 5.7 ug/mL (10.0-20.0) L 10/13/20 07:00 C. difficile Tox (PCR) Positive (Negative) 10/16/20 10:22 Coronavirus (PCR) Negative (Negative) 10/08/20 14:15 Blood Type O POSITIVE 10/02/20 12:50 Antibody Screen Negative 10/02/20 12:50 Crossmatch See Detail 10/02/20 12:50 - Diagnostic Impressions Diagnostic Impressions: Echocardiogram 10/03/20 13:42 Transthoracic Echocardiogram Indication: S/P Cardiac Arrest R/O Cardiomyopathy BP: 133/71 Conclusions *Global left ventricular systolic function is normal. *The estimated ejection fraction is 60-65%. *There is trace of mitral regurgitation. *The right 0heart chambers are both slightly dilated. *There is mild tricuspid regurgitation. *There is mild-moderate pulmonary hypertension. *The right ventricular systolic pressure is calculated at 44 mmHg. *The study quality is technically difficult. Findings Procedure Info: The study quality is technically difficult. The study is technically limited due to patient body habitus. The study was technically limited due to the patient's inability to lay in the left lateral decubitus position. Left Ventricle: The left ventricular chamber size is normal. There is no left ventricular hypertrophy. Global left ventricular systolic function is normal. The estimated ejection fraction is 60-65%. Left Atrium: The left atrial chamber size is normal. Right Ventricle: The right ventricle is slightly dilated. Right Atrium: The right atrium is mildly dilated. Aortic Valve: The aortic valve leaflets are mildly thickened. There is no evidence of aortic regurgitation. There is no evidence of aortic stenosis. Mitral Valve: The mitral valve leaflets are mildly thickened. There is trace of mitral regurgitation. There is no evidence of mitral stenosis. Tricuspid Valve: There is mild tricuspid regurgitation. The right ventricular systolic pressure is calculated at 44 mmHg. There is evidence of mild pulmonary hypertension. Pulmonic Valve: There is trace pulmonic regurgitation. Pericardium: There is no pericardial effusion. Aorta: There is no dilatation of the ascending aorta. There is no dilatation of the aortic root. Venous: The inferior vena cava is dilated. Measurements Chambers 2D Name Value Normal Range IVSd (2D) 1 cm (0.6 - 1.1) LVPWd (2D) 1.01 cm (0.6 - 1.1) LVIDd (2D) 4.58 cm (3.7 - 5.6) LVIDs (2D) 3.17 cm (2 - 3.8) LV FS (2D) 30.93 % - EF Teichholz (2D) 58.66 % - Ao root diameter (2D) 2.94 cm (2 - 3.7) Volumes/Mass Name Value Normal Range LA ESV SP 4CH (A/L) 72.82 ml - LA ESV SP 2CH (A/L) 66.86 ml - LA ESV BP (A/L) 74.49 ml - LA ESV SP 4CH (MOD) 71.03 ml - LA ESV SP 2CH (MOD) 64.3 ml - LV EDV SP 4CH (MOD) 98.82 ml - LV ESV SP 4CH (MOD) 24.8 ml - EF SP 4CH (MOD) 74.9 % - LV EDV SP 2CH (MOD) 86.1 ml - LV ESV SP 2CH (MOD) 36.93 ml - EF SP 2CH (MOD) 57.11 % - LV EDV BP 94.4 ml - LV ESV BP 32.66 ml - BP EF (MOD) 65.4 % - Diastolic/Systolic Function Name Value Normal Range MV E-wave Vmax 1.04 m/sec - MV deceleration time 160.46 msec - MV A-wave Vmax 0.92 m/sec - MV E:A ratio 1.14 ratio - Aortic Valve Name Value Normal Range AV Vmax 2.12 m/sec - AV VTI 22.37 cm - AV peak gradient 17.95 mmHg - AV mean gradient 7.29 mmHg - LVOT diameter 2.01 cm - LVOT Vmax 1.8 m/sec - LVOT VTI 27.17 cm - LVOT peak gradient 12.91 mmHg - LVOT mean gradient 6.83 mmHg - SV LVOT 86.42 ml - ANITA (continuity Vmax) 2.7 cm2 - ANITA (continuity VTI) 3.86 cm2 - Ascending Ao 3.18 cm - Tricuspid Valve Name Value Normal Range TV E-wave Vmax 0.88 m/sec - TR Vmax 3.01 m/sec - TR peak gradient 36.27 mmHg - RAP 8 mmHg - RVSP 44 mmHg - IVC diameter 2.65 cm (1.2 - 2.3) Pulmonic Valve/Qp:Qs Name Value Normal Range PV Vmax 1.22 m/sec - PV peak gradient 5.91 mmHg - RVOT Vmax 0.87 m/sec - RVOT VTI 13.32 cm - RVOT peak gradient 3 mmHg - PV acceleration time 110.37 msec - [place]lin/IV: Voiding Method External Female Catheter IV Catheter Type [Right Foot] INT / Saline Lock IV Catheter Type [Left Forearm Peripheral IV ] IV Catheter Type [Left Wrist] INT / Saline Lock IV Catheter Type [Right Hand] INT / Saline Lock IV Catheter Type [Right INT / Saline Lock Antecubital] IV Catheter Type [Right Upper Mid-line arm] IV Catheter Type [Left Triple Lumen Cath Internal Jugular] IV Catheter Type [Left Hand] Peripheral IV IV Catheter Type [Left Peripheral IV Antecubital] Active Medications - Current Medications Current Medications: Generic Name Dose Route Start Last Admin Trade Name Freq PRN Reason Stop Dose Admin Acetaminophen 650 mg 12/21/20 16:34 12/16/20 19:44 Acetaminophen 325 Mg/10.15 Ml Oral Liqd Unit Dose FEEDTUBE 650 mg Q6H PRN Administration Non Cardiac Pain or Temp>100.5 Albuterol 2.5 mg 11/05/20 13:03 11/06/20 13:04 Albuterol 2.5 Mg/3 Ml Nebu IH 2.5 mg Q4HRT PRN Administration Shortness Of Breath Lipase/Protease/Amylase 1 each 10/05/20 11:09 Lipase 10,500/Protease 25,000/Amylase 43,750 (Units) Dr Barakat FEEDTUBE PRN PRN For Clogged Feeding Tube Enoxaparin Sodium 40 mg 10/22/20 10:00 12/17/20 09:34 Enoxaparin 40 Mg/0.4 Ml Inj SUB-Q 40 mg DAILY ERINN Administration Protocol Famotidine 20 mg 10/07/20 10:00 12/17/20 09:33 Famotidine 20 Mg Tab PO 20 mg BID ERINN Administration Furosemide 40 mg 10/17/20 10:00 12/17/20 09:33 Furosemide 40 Mg Tab PO 40 mg QDAY ERINN Administration Hydralazine HCl 20 mg 10/07/20 11:49 10/17/20 07:20 Hydralazine 20 Mg/1 Ml Inj IV 20 mg Q6H PRN Administration SBP >170 Dextrose 1,000 mls @ 42 mls/hr 12/15/20 11:00 12/17/20 06:22 D5w IV 42 mls/hr DIRECT ERINN Administration Simple Syrup 15 ml 10/05/20 11:09 Simple Syrup 15 Ml FEEDTUBE PRN PRN Hypoglycemia Simple Syrup 30 ml 10/05/20 11:09 Simple Syrup 15 Ml FEEDTUBE PRN PRN Hypoglycemia Sodium Bicarbonate 325 mg 10/05/20 11:09 12/16/20 08:19 Sodium Bicarbonate 325 Mg Tab FEEDTUBE 325 mg PRN PRN Administration For Clogged Feeding Tube Nutrition/Malnutrition Assess - Dietary Evaluation Nutrition/Malnutrition Findings: Nutrition Notes Start: 10/04/20 11:13 Freq: Status: Active Protocol: Document 12/17/20 12:16 AL (Rec: 12/17/20 12:20 AL [id number]) Co-Sign 12/17/20 12:16 LP Nutrition Notes Initial or Follow up Reassessment Current Diagnosis Respiratory Failure Other Pertinent Diagnosis C-Diff, Cardiac arrest, s/p c- section and supracervical hysterectomy, Brain Current Diet Jevity 1.2 at 60 mL/hr Labs/Tests 12/16 Na 156 Pertinent Medications Lasix Height 5 ft 8 in Weight 97.4 kg [place] Body Weight (kg) 63.63 BMI 32.6 Weight Status Obese Subjective/Other Information FU for TF tolerance. TF is running at 60 ml/hr (goal rate ). Pt still hypernatremic. Flush changed to 250 ml q4h in pt order to treat hypernatremia. RN made aware Percent of energy/protein needs met: 81%/100% Burn Absent Trauma Absent GI Symptoms None Food Allergy Yes Current % PO Negligible Minimum of two criteria Yes Interpretation of Weight Loss (severe) >2% in 1 week Fluid Accumulation Mild (non-severe) #2 Nutrition Diagnosis Malnutrition Diagnosis Progress(for reassessment Continues documentation) #1 Nutrition Diagnosis Inadequate oral intake Diagnosis Progress(for reassessment Continues documentation) Is patient on ventilator? No Is Patient Ambulatory and/or Out of Bed No REE-([facility]-confined to bed) 2080.908 Kcal/Kg value to use for calculation 17 Approximate Energy Requirements Using 1656 kcal/Kg Calculation Used for Recommendations Kcal/kg Additional Notes PRO needs: 65-81 (0.8-1 g/kg AdBW 81kg) Fluid needs: 1 mL/kcal or per MD Nutrition Intervention Change Diet Order: Continue TF Nutrition Support: Jevity 1.2 at 60ml/hr. Flush 100ml q4h. Flush 250 ml q4h for Hypernatremia. Once hypernatremia is resolved, flush 100 q4h. Kcal 1,728 Protein (gm) 80 Fluid (mL) 1,162 Goal #1 TF tolerance Goal #2 Meet at least 75% of energy and protein needs Anticipated Discharge Needs: Unable to determine at this time Follow-Up By: 12/21/20 Additional Comments FU for stable TF and hypernatremia
[2020-12-17] MEDS: ACETAMINOPHEN 325 MG/10.15 ML ORAL LIQD UNIT DOSE FEEDTUBE PRN (21:37)
[2020-12-18] MEDS: DEXTROSE 5% IN WATER 1,000 ML IV SCH ×2 (05:08→21:41)
[2020-12-18 05:21] LABS: Hematocrit 41.6 % (30.3-42.9); Mean Corpuscular HGB Conc 31 % (30-34); Mean Corpuscular Volume 81 fl (79-97); Platelet Count 258 K/mm3 (140-440); Red Blood Count 5.16 M/mm3 (3.65-5.03); Red Cell Distribution Width 14.5 % (13.2-15.2)
[2020-12-18 05:47] LABS: Blood Urea Nitrogen 20 mg/dL (7-17); Calcium 9.7 mg/dL (8.4-10.2); Hemolysis Index 35
[2020-12-18 05:48] LABS: BUN/Creatinine Ratio 29
--- NOTE | 2020-12-18 08:42 | Progress Note ---
Assessment and Plan Assessment and plan: Eclampsia/HELLP Syndrome, ADOLPH, DIC; s/p , s/p supracervical hyst 30 year old -[place]wegian female CHE 10/25/20 at 36w5d who presents with seizures in triage on 10/02/20. Pt was not able to provide history but per pt's , she presented to the hospital to return a 24 hour urine specimen for analysis. She then suddenly reported that she did not feel good. She was taken to labor and delivery and shortly after arrival, she began seizing. During this time, a code met was called because the patient became hypoxic. She was then noted to be without a pulse. Chest compressions were started immediately, and the patient was emergently taken to the operating room for delivery of the fetus. Off note, This patient has had care at [facility] with comanagement by [facility] since 11 wks complicated by ADHD, morbid obesity, generalized anxiety disorder, panic attacks, chronic narcotic use, fibromyalgia, GERD, Irritable Bowel Syndrome, Migraines, h/o endometrial ablation and ovarian vein embolization, genital herpes, insomnia, LGA fetus, nausea and vomiting, polyhydramnios, quad screen positive for Down's Syndrome, and previous x 3. She is GBS negative. -- Sepsis with presumed Pneumonia Teated with iv abx, follow Cx -Completed cefepime course 5 days on 10/09/2020 -Check MRSA culture -Start vancomycin p.o. empirically for C. difficile total 10 days, given diarrhea and worsening leukocytosis, --Acute respiratory failure with hypoxia Patient extubated. --DIC (disseminated intravascular coagulation) vs HELLP syndrome Has anemia,thrombocytopenia and elevated liver enzymes Patient received multiple units of RBCs, FFP's, cryo at present not requiring transfusion. Has resolved H&H is 12 and 37. Hemoglobin hematocrit remained stable pending today. Hematology/oncology recommendations appreciated Continue to trend fibrinogen and INR Hemoglobin hematocrit remains stable today. Follow platelets transfuse as necessary. --Possible Eclampsia/HELLP Syndrome Patient presented with seizure-->hypoxia-->urgent C section-->hysterectomy for severe bleeding/DIC developed severe anemia-->received RBC, plt, FFP, cryo was on max pressors-->now off pressors still on vent, on sedation tracheostomy. 50% now. Hematology following --s/p Cardiac arrest x2 on admission and on 10/07 ACLS protocol followed by revival Echo showed preserved Ef --Shock-resolved now awaiting placement s/p pressor support Likely hypovolemic. on empirical antibiotics for possible sepsis. Continue to monitor blood pressure closely Trend H&H repeated H&H today stable not requiring transfusion. -- Hypernatremia --Lactic acidosis also resolving. As a result of poor organ perfusion and possible sepsis Continue IV hydration. Lactic acid is trending down Nephrology on board Overall prognosis extremely poor. --ADOLPH-resolved As a result of hypoperfusion and shock Continue IV hydration Cr stable, will follow up in the a.m. has been hemodynamically stable overall prognosis poor Even more quality of life extremely poor --DVT prophylaxis Patient presented with DIC No anticoagulants UTI -Was not present on admission -Diagnosed on 12/10/2020 Last day of Rocephin. 11:30: Pt brought to L&D triage for evaluation of possible labor. Pt accompanied by her spouse. Pt spouse poor historian; unable to obtain history- allergies at this time. Pt taken from registration to triage area via WC. Pt unresponsive, actively seizing with snorous respirations. insole tacker, Kassy, called and requesting assistance. 11:35: Multiple staff at bedside. Pt 02 sat 67% on nonrebreather, unable to read BP at this time. Yifan Theodore CRNA, at bedside for intubation and assistance with IV insertion. INT attempt by multiple RNs unsuccessful at this time. 11:42: Pt being bagged by KORIN, 02% 79%. No pulse palpated, compressions started at this time; bharati young called and Dr. Newberry preparing OR for emergent c/s. 11:44: Continued compressions on stretcher while transporting pt to OR 1. Pt being bagged with jaw thrust manuever in place by KORIN Stringer student. 11:45: Arrival to OR 1. Dr. Newberry and Dr. Portillo present for emergent c/s. Code team arrived for continued care. patient revived and c/s done Patient has been bleeding from C/s site followed by supracervical hysterectomy for severe bleeding Patient transfused multiple units of PRBC, Patient in DIC. Transferred to the ICU 10/03. Patient seen and examined at bedside this morning. Patient is nonresponsive and mechanically ventilated. On pressors. Labs reviewed-has leukocytosis, anemia, thrombocytopenia, ADOLPH and lactic acidosis. Started on IV antibiotics to cover possible sepsis secondary to DIC. Hematology oncology recommendations appreciated-needs additional cryoprecipitate and FFP. Monitor D-dimer, fibrinogen and frequent labs. Nephrology consulted for lactic acidosis and ADOLPH. 10/04. Remains mechanically ventilated. Kevin antibiotics. Labs shows improved acidosis - lactic acid 3.5. Hb drop noted. Getting transfused 2 units PRBCs. Platelet count is ~40k. Continue to monitor labs closely. Critical care team on board. 10/05; xray reviewed, concerning for multifocal infilrate, likely underlying Pneumonia, will add ID consult to assist with management of this critically ill patient, start tube feed, closely monitor renal system 10/06: Resumed care, remains on mechanical ventilation. No active bleeding, H&H stable. Continue to monitor CBC and BMP. Continue IV antibiotic for underlying pneumonia. Follow critical care and ID recommendation. 10/07: Remains on mechanical ventilation. No active bleeding, H&H stable. Critical care following, wean off ventilation as tolerated. 10/08: Patient had another cardiac arrest last night. Remains on mechanical ventilation, update family. Continue supportive care -poor prognosis 10/09: Called patient mother and discussed about patient care and management. Answered all question to best of my knowledge and family satisfaction. Patient remains on mechanical ventilation, cardiac arrest x2 so far. Critically sick, poor prognosis 10/10: remains on mechanical ventilation. h/h stable, no active bleeding. monitor CBC/BMP 10/11: WBC trended up with diarrhea, started on vancomycin po. remains on MV, off pressor, tolerating TF 10/12: remains on MV, off pressor, tolerating TF. called family for update but unable to reach, could not leave message as it was full. cont supportive care, wean off vent as tolerated. 10/13/2020; patient is on mechanical ventilation, tolerating tube feeding. Patient has labored breathing. Neuro was consulted and recommend MRI. Patient is on Precedex. Rectal tube in place. 10/14/2020; patient is on mechanical ventilation, Precedex. Patient had fever and blood culture ordered. Patient is on IV vancomycin per ID recommendation. Neuro consulted and recommend MRI. Continue to monitor. Prognosis is guarded. 10/15/2020; patient is on mechanical ventilation, Precedex. Patient had fever and blood culture ordered. Patient is on IV vancomycin per ID recommendation. Neuro consulted and recommend MRI. Continue to monitor. Prognosis is guarded. 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 12/06/20; anoxic brain injury. Awaiting placement. 12/07/2020; anoxic brain injury, awaiting placement. 12/09/2020; anoxic brain injury, awaiting placement. 12/10/2020; patient had episodes of fever overnight. CBC, BMP, blood culture, UA and chest x-ray ordered, will follow and manage accordingly. Urinalysis is suggestive of UTI and I put the patient on ceftriaxone, order urine culture. Chest x-ray is normal. 12/11/2020; patient is on ceftriaxone day 2 for UTI. We will continue to follow urine culture. 12/12/2020. Day #3 of Rocephin for UTI. We will continue for 2 more days while she is here. Present UTI. 12/13/2020. Day #4 of Rocephin for UTI. Patient remains on 50% with tracheostomy. Remains unresponsive with evidence of anoxic encephalopathy unable to make needs known. 12/14/2020. Day #5 of Rocephin for UTI completed today. Remains encephalopathic unable to make needs known. Remains on 50% unable to decrease oxygen via tracheostomy. Overall prognosis remains extremely poor. 3/2: Continue to monitor. Stop and monitor antibiotics at this time. Continue to wean oxygen as tolerated. Wean oxygen as tolerated. Case management working on placement. 3: Continue supportive care aspiration precautions. Awaiting placement discussion. Monitor fever curve. Prognosis remains poor no evidence of neurological recovery as of today 3/4: Continue supportive care, check labs and chest xray. Still monitor off antibiotics. Monitor Sodium level 3: Patient remains with intermittent low grade fever, reviewed EEG from [facility] again, consistent for Ischemic Hypoxic Encephalopathy, patient with decorticating posturing type presentation. Will discuss with attorney recruiter to optimize diet so we can discontinue D5. CXR with no abnormality. Discussed extensively with the nursing staff at bedside CXR IMPRESSION: 1. No acute findings. History Interval history: Patient seen and examined, no clinical changes, although with low grade intermittent fever Hospitalist Physical - Physical exam Narrative exam: VITAL SIGNS: Reviewed. GENERAL: No worsening respiratory distress HEAD: No signs of head trauma. Opens her eyes but no purposeful movement EYES: Pupils are equal. MOUTH: clear NECK: No adenopathy, no JVD. Trach CHEST: Rales posteriorly CARDIAC: normal S1 and S2, without murmurs, gallops, or rubs. ABDOMEN: PEG, Soft, non tender and non distended. surgical wound in tact, No rebound or guarding, and no masses palpated. Bowel Sounds normal. MUSCULOSKELETAL: Generalized anasacar. Decortication posturing. NEUROLOGIC EXAM: AWAKE BUT NOT RESPONSIVE SKIN: No obvious lesions - Constitutional Vitals: Temp Pulse Resp BP Pulse Ox 99.0 F 111 H 17 124/84 100 12/18/20 07:54 12/18/20 07:00 12/18/20 07:00 12/18/20 07:00 12/18/20 07:00 General appearance: Present: no acute distress, other (Patient does move when attempts to clean her tracheostomy and change her diaper otherwise no intelligible words.) HEART Score - HEART Score Age: < 45 Risk factors: 1-2 risk factors - Critical Actions Critical Actions: >7 pts:50-65% risk of adverse cardiac event. Early invasive measures Results - Labs CBC & Chem 7: 12/18/20 04:57 12/18/20 04:57 Labs: Laboratory Last Values WBC 8.6 K/mm3 (4.5-11.0) 12/18/20 04:57 RBC 5.16 M/mm3 (3.65-5.03) H 12/18/20 04:57 Hgb 13.0 gm/dl (10.1-14.3) 12/18/20 04:57 Hgb Comment See scanned result 10/04/20 Unknown Hct 41.6 % (30.3-42.9) 12/18/20 04:57 MCV 81 fl (79-97) 12/18/20 04:57 MCH 25 pg (28-32) L 12/18/20 04:57 MCHC 31 % (30-34) 12/18/20 04:57 RDW 14.5 % (13.2-15.2) 12/18/20 04:57 Plt Count 258 K/mm3 (140-440) 12/18/20 04:57 Lymph % (Auto) 24.1 % (13.4-35.0) 12/14/20 10:32 Cavalier % (Auto) 7.8 % (0.0-7.3) H 12/14/20 10:32 Eos % (Auto) 1.5 % (0.0-4.3) 12/14/20 10:32 Baso % (Auto) 0.3 % (0.0-1.8) 12/14/20 10:32 Lymph # (Auto) 2.5 K/mm3 (1.2-5.4) 12/14/20 10:32 Cavalier # (Auto) 0.8 K/mm3 (0.0-0.8) 12/14/20 10:32 Eos # (Auto) 0.2 K/mm3 (0.0-0.4) 12/14/20 10:32 Baso # (Auto) 0.0 K/mm3 (0.0-0.1) 12/14/20 10:32 Add Manual Diff Complete 12/10/20 09:37 Total Counted 100 12/10/20 09:37 Seg Neutrophils % 66.3 % (40.0-70.0) 12/14/20 10:32 Seg Neuts % (Manual) 81.0 % (40.0-70.0) H 12/10/20 09:37 Band Neutrophils % 2.0 % 10/15/20 05:50 Lymphocytes % (Manual) 17.0 % (13.4-35.0) 12/10/20 09:37 Reactive Lymphs % (Man) 1.0 % 10/02/20 12:18 Monocytes % (Manual) 2.0 % (0.0-7.3) 12/10/20 09:37 Eosinophils % (Manual) 1.0 % (0.0-4.3) 10/29/20 07:56 Myelocytes % 2.0 % 10/02/20 13:05 Metamyelocytes % 1.0 % 10/14/20 04:00 Nucleated RBC % Not Reportable 12/10/20 09:37 Seg Neutrophils # 6.8 K/mm3 (1.8-7.7) 12/14/20 10:32 Seg Neutrophils # Man 10.1 K/mm3 (1.8-7.7) H 12/10/20 09:37 Band Neutrophils # 0.0 K/mm3 12/10/20 09:37 Lymphocytes # (Manual) 2.1 K/mm3 (1.2-5.4) 12/10/20 09:37 Abs React Lymphs (Man) 0.0 K/mm3 12/10/20 09:37 Monocytes # (Manual) 0.3 K/mm3 (0.0-0.8) 12/10/20 09:37 Eosinophils # (Manual) 0.0 K/mm3 (0.0-0.4) 12/10/20 09:37 Basophils # (Manual) 0.0 K/mm3 (0.0-0.1) 12/10/20 09:37 Metamyelocytes # 0.0 K/mm3 12/10/20 09:37 Myelocytes # 0.0 K/mm3 12/10/20 09:37 Promyelocytes # 0.0 K/mm3 12/10/20 09:37 Blast Cells # 0.0 K/mm3 12/10/20 09:37 WBC Morphology Not Reportable 12/10/20 09:37 Hypersegmented Neuts Not Reportable 12/10/20 09:37 Hyposegmented Neuts Not Reportable 12/10/20 09:37 Hypogranular Neuts Not Reportable 12/10/20 09:37 Smudge Cells Not Reportable 12/10/20 09:37 Toxic Granulation Not Reportable 12/10/20 09:37 Toxic Vacuolation Not Reportable 12/10/20 09:37 Dohle Bodies Not Reportable 12/10/20 09:37 Pelger-Huet Anomaly Not Reportable 12/10/20 09:37 Ester Rods Not Reportable 12/10/20 09:37 Platelet Estimate Consistent w auto 12/10/20 09:37 Clumped Platelets Not Reportable 12/10/20 09:37 Plt Clumps, EDTA Not Reportable 12/10/20 09:37 Large Platelets Not Reportable 12/10/20 09:37 Giant Platelets Not Reportable 12/10/20 09:37 Platelet Satelliting Not Reportable 12/10/20 09:37 Plt Morphology Comment Not Reportable 12/10/20 09:37 RBC Morphology Normal 12/10/20 09:37 Dimorphic RBCs Not Reportable 12/10/20 09:37 Polychromasia Not Reportable 12/10/20 09:37 Hypochromasia 1+ 12/10/20 09:37 Poikilocytosis Not Reportable 12/10/20 09:37 Anisocytosis Not Reportable 12/10/20 09:37 Microcytosis Not Reportable 12/10/20 09:37 Macrocytosis Not Reportable 12/10/20 09:37 Spherocytes Not Reportable 12/10/20 09:37 Pappenheimer Bodies Not Reportable 12/10/20 09:37 Sickle Cells Not Reportable 12/10/20 09:37 Target Cells Not Reportable 12/10/20 09:37 Tear Drop Cells Not Reportable 12/10/20 09:37 Ovalocytes Not Reportable 12/10/20 09:37 Stomatocytes Few 10/14/20 04:00 Helmet Cells Not Reportable 12/10/20 09:37 Burk-Bloom[place] Bodies Not Reportable 12/10/20 09:37 Cass Rings Not Reportable 12/10/20 09:37 Roslindale Cells Not Reportable 12/10/20 09:37 Bite Cells Not Reportable 12/10/20 09:37 Crenated Cell Not Reportable 12/10/20 09:37 Elliptocytes Not Reportable 12/10/20 09:37 Acanthocytes (Spur) Not Reportable 12/10/20 09:37 Rouleaux Not Reportable 12/10/20 09:37 Hemoglobin C Crystals Not Reportable 12/10/20 09:37 Schistocytes Not Reportable 12/10/20 09:37 Malaria parasites Not Reportable 12/10/20 09:37 Sickle Cell Solubility See scanned result 10/04/20 Unknown Hemoglobin A See scanned result 10/04/20 Unknown Hemoglobin A2 See scanned result 10/04/20 Unknown Hemoglobin A2 Prime See scanned result 10/04/20 Unknown Hemoglobin C See scanned result 10/04/20 Unknown Hemoglobin D See scanned result 10/04/20 Unknown Hemoglobin E See scanned result 10/04/20 Unknown Hgb F Diffential Stain See scanned result 10/04/20 Unknown Hemoglobin F Quant See scanned result 10/04/20 Unknown Hemoglobin G See scanned result 10/04/20 Unknown Hemoglobin S See scanned result 10/04/20 Unknown Hemoglobin O-Ramona See scanned result 10/04/20 Unknown Hemoglobin Barts See scanned result 10/04/20 Unknown Hemoglobin Analilia See scanned result 10/04/20 Unknown Variant Hemoglobin See scanned result 10/04/20 Unknown Abnorm Hgb IEF Confirm See scanned result 10/04/20 Unknown Hemoglobin Interpret See scanned result 10/04/20 Unknown Hemoglobinopathy Note See scanned result 10/04/20 Unknown Sharad Bodies Not Reportable 12/10/20 09:37 Hem Pathologist Commnt No 12/10/20 09:37 PT 13.6 Sec. (12.2-14.9) 10/21/20 13:54 INR 1.06 (0.87-1.13) 10/21/20 13:54 APTT 31.6 Sec. (24.2-36.6) 10/03/20 00:40 Fibrinogen 336 mg/dl (211-480) 10/04/20 10:00 D-Dimer 1974.47 ng/mlDDU (0-234) H 11/11/20 13:50 ABG pH 7.459 pH Units (7.350-7.450) H 10/26/20 10:30 POC ABG pCO2 20.7 mmHg (32.0-48.0) L 10/13/20 07:18 ABG pCO2 32.4 mm Hg 10/26/20 10:30 POC ABG pO2 137.9 mmHg (83-108) H 10/13/20 07:18 ABG pO2 112.2 mm Hg (80.0-90.0) H 10/26/20 10:30 POC ABG HCO3 14.8 10/13/20 07:18 ABG HCO3 22.5 mmol/L (20.0-26.0) 10/26/20 10:30 ABG O2 Saturation 98.2 % (95.0-99.0) 10/26/20 10:30 ABG O2 Content 18.5 (0.0-44) 10/26/20 10:30 POC ABG Base Excess -6.9 10/13/20 07:18 ABG Base Excess -0.6 mmol/L (-2.0-3.0) 10/26/20 10:30 ABG Hemoglobin 13.5 gm/dl (12.0-16.0) 10/26/20 10:30 ABG Oxyhemoglobin 98.3 (94-98) H 10/13/20 07:18 ABG Carboxyhemoglobin 1.3 % (0.0-5.0) 10/26/20 10:30 ABG Methemoglobin 0.5 % (0.0-1.5) 10/26/20 10:30 ABG Sodium 135.9 mmol/L (136.0-145.0) L 10/13/20 07:18 ABG Potassium 3.7 mmol/L (3.40-4.50) 10/13/20 07:18 ABG Chloride 111.0 mmol/L (98-107) H 10/13/20 07:18 ABG Glucose 109 mg/dL (65-95) H 10/13/20 07:18 VBG pH 6.949 (7.320-7.420) L* 10/02/20 Unknown Oxyhemoglobin 96.5 % (95.0-99.0) 10/26/20 10:30 Carboxyhemoglobin 0.3 (0.5-1.5) L 10/13/20 07:18 FiO2 25 % 10/26/20 10:30 Sodium 150 mmol/L (137-145) H 12/18/20 04:57 Potassium 4.2 mmol/L (3.6-5.0) 12/18/20 04:57 Chloride 110.8 mmol/L (98-107) H 12/18/20 04:57 Carbon Dioxide 28 mmol/L (22-30) 12/18/20 04:57 Anion Gap 15 mmol/L 12/18/20 04:57 BUN 20 mg/dL (7-17) H 12/18/20 04:57 Creatinine 0.7 mg/dL (0.6-1.2) 12/18/20 04:57 Estimated GFR > 60 ml/min 12/18/20 04:57 BUN/Creatinine Ratio 29 % 12/18/20 04:57 Glucose 92 mg/dL (65-100) 12/18/20 04:57 POC Glucose 108 mg/dL (70-105) H 12/17/20 23:27 Random Insulin 43.2 uIU/mL (<=19.6) H 11/02/20 19:19 Proinsulin See scanned result 11/02/20 19:19 C-Peptide 6.23 ng/mL (0.80-3.85) H 11/02/20 19:19 Lactic Acid 1.90 mmol/L (0.7-2.0) 10/04/20 22:00 Uric Acid 7.5 mg/dL (3.5-7.6) 10/02/20 13:05 Calcium 9.7 mg/dL (8.4-10.2) 12/18/20 04:57 Ionized Calcium 4.4 mg/dL (4.8-5.6) L 10/07/20 21:00 Phosphorus 4.60 mg/dL (2.5-4.5) H 11/13/20 10:05 Magnesium 2.10 mg/dL (1.7-2.3) 11/13/20 10:05 Total Bilirubin 0.50 mg/dL (0.1-1.2) 12/14/20 09:06 AST 63 units/L (5-40) H 12/14/20 09:06 ALT 42 units/L (7-56) 12/14/20 09:06 Alkaline Phosphatase 107 units/L (35-129) 12/14/20 09:06 Lactate Dehydrogenase 769 units/L (91-180) H 10/02/20 13:05 C-Reactive Protein 0.70 mg/dL (0.00-1.30) 11/11/20 13:50 NT-Pro-B Natriuret Pep 2788 pg/mL (0-450) H 10/04/20 10:00 Total Protein 8.3 g/dL (6.3-8.2) H 12/14/20 09:06 Albumin 3.8 g/dL (3.9-5) L 12/14/20 09:06 Albumin/Globulin Ratio 0.8 % 12/14/20 09:06 Procalcitonin < 0.05 ng/mL (<0.15) 11/11/20 13:50 Arterial Blood Glucose 109 mg/dL (65-95) H 10/13/20 07:18 Arterial Blood Ionized Calcium 4.6 mg/dL (4.6-5.3) 10/13/20 07:18 Urine Color Kelsey (Yellow) 12/10/20 09:25 Urine Turbidity Cloudy (Clear) 12/10/20 09:25 Urine pH 7.0 (5.0-7.0) 12/10/20 09:25 Ur Specific [place] 1.027 (1.003-1.030) 12/10/20 09:25 Urine Protein 100 mg/dl mg/dL (Negative) 12/10/20 09:25 Urine Glucose (UA) Neg mg/dL (Negative) 12/10/20 09:25 Urine Ketones Neg mg/dL (Negative) 12/10/20 09:25 Urine Blood Sm (Negative) 12/10/20 09:25 Urine Nitrite Neg (Negative) 12/10/20 09:25 Urine Bilirubin Neg (Negative) 12/10/20 09:25 Urine Urobilinogen 4.0 mg/dL (<2.0) 12/10/20 09:25 Ur Leukocyte Esterase Mod (Negative) 12/10/20 09:25 Urine WBC (Auto) 50.0 /HPF (0.0-6.0) H 12/10/20 09:25 Urine RBC (Auto) 27.0 /HPF (0.0-6.0) 12/10/20 09:25 U Epithel Cells (Auto) 8.0 /HPF (0-13.0) 12/10/20 09:25 Urine Bacteria (Auto) 4+ /HPF (Negative) 11/11/20 13:50 Urine WBC Clumps 3+ /HPF 11/11/20 13:50 Calcium Oxalate Crystal Few 11/11/20 13:50 Urine Mucus Few /HPF 11/11/20 13:50 Urine Yeast (Budding) 2+ /HPF 12/10/20 09:25 Vancomycin Trough 12.6 ug/mL (5.0-20.0) 10/21/20 13:54 Random Vancomycin 10.7 ug/mL (0-40.0) 10/16/20 13:09 Phenytoin 5.7 ug/mL (10.0-20.0) L 10/13/20 07:00 C. difficile Tox (PCR) Positive (Negative) 10/16/20 10:22 Coronavirus (PCR) Negative (Negative) 10/08/20 14:15 Blood Type O POSITIVE 10/02/20 12:50 Antibody Screen Negative 10/02/20 12:50 Crossmatch See Detail 10/02/20 12:50 - Diagnostic Impressions Diagnostic Impressions: Echocardiogram 10/03/20 13:42 Transthoracic Echocardiogram Indication: S/P Cardiac Arrest R/O Cardiomyopathy BP: 133/71 Conclusions *Global left ventricular systolic function is normal. *The estimated ejection fraction is 60-65%. *There is trace of mitral regurgitation. *The right 0heart chambers are both slightly dilated. *There is mild tricuspid regurgitation. *There is mild-moderate pulmonary hypertension. *The right ventricular systolic pressure is calculated at 44 mmHg. *The study quality is technically difficult. Findings Procedure Info: The study quality is technically difficult. The study is technically limited due to patient body habitus. The study was technically limited due to the patient's inability to lay in the left lateral decubitus position. Left Ventricle: The left ventricular chamber size is normal. There is no left ventricular hypertrophy. Global left ventricular systolic function is normal. The estimated ejection fraction is 60-65%. Left Atrium: The left atrial chamber size is normal. Right Ventricle: The right ventricle is slightly dilated. Right Atrium: The right atrium is mildly dilated. Aortic Valve: The aortic valve leaflets are mildly thickened. There is no evidence of aortic regurgitation. There is no evidence of aortic stenosis. Mitral Valve: The mitral valve leaflets are mildly thickened. There is trace of mitral regurgitation. There is no evidence of mitral stenosis. Tricuspid Valve: There is mild tricuspid regurgitation. The right ventricular systolic pressure is calculated at 44 mmHg. There is evidence of mild pulmonary hypertension. Pulmonic Valve: There is trace pulmonic regurgitation. Pericardium: There is no pericardial effusion. Aorta: There is no dilatation of the ascending aorta. There is no dilatation of the aortic root. Venous: The inferior vena cava is dilated. Measurements Chambers 2D Name Value Normal Range IVSd (2D) 1 cm (0.6 - 1.1) LVPWd (2D) 1.01 cm (0.6 - 1.1) LVIDd (2D) 4.58 cm (3.7 - 5.6) LVIDs (2D) 3.17 cm (2 - 3.8) LV FS (2D) 30.93 % - EF Teichholz (2D) 58.66 % - Ao root diameter (2D) 2.94 cm (2 - 3.7) Volumes/Mass Name Value Normal Range LA ESV SP 4CH (A/L) 72.82 ml - LA ESV SP 2CH (A/L) 66.86 ml - LA ESV BP (A/L) 74.49 ml - LA ESV SP 4CH (MOD) 71.03 ml - LA ESV SP 2CH (MOD) 64.3 ml - LV EDV SP 4CH (MOD) 98.82 ml - LV ESV SP 4CH (MOD) 24.8 ml - EF SP 4CH (MOD) 74.9 % - LV EDV SP 2CH (MOD) 86.1 ml - LV ESV SP 2CH (MOD) 36.93 ml - EF SP 2CH (MOD) 57.11 % - LV EDV BP 94.4 ml - LV ESV BP 32.66 ml - BP EF (MOD) 65.4 % - Diastolic/Systolic Function Name Value Normal Range MV E-wave Vmax 1.04 m/sec - MV deceleration time 160.46 msec - MV A-wave Vmax 0.92 m/sec - MV E:A ratio 1.14 ratio - Aortic Valve Name Value Normal Range AV Vmax 2.12 m/sec - AV VTI 22.37 cm - AV peak gradient 17.95 mmHg - AV mean gradient 7.29 mmHg - LVOT diameter 2.01 cm - LVOT Vmax 1.8 m/sec - LVOT VTI 27.17 cm - LVOT peak gradient 12.91 mmHg - LVOT mean gradient 6.83 mmHg - SV LVOT 86.42 ml - ANITA (continuity Vmax) 2.7 cm2 - ANITA (continuity VTI) 3.86 cm2 - Ascending Ao 3.18 cm - Tricuspid Valve Name Value Normal Range TV E-wave Vmax 0.88 m/sec - TR Vmax 3.01 m/sec - TR peak gradient 36.27 mmHg - RAP 8 mmHg - RVSP 44 mmHg - IVC diameter 2.65 cm (1.2 - 2.3) Pulmonic Valve/Qp:Qs Name Value Normal Range PV Vmax 1.22 m/sec - PV peak gradient 5.91 mmHg - RVOT Vmax 0.87 m/sec - RVOT VTI 13.32 cm - RVOT peak gradient 3 mmHg - PV acceleration time 110.37 msec - Hamlin/IV: Voiding Method External Female Catheter IV Catheter Type [Right Foot] INT / Saline Lock IV Catheter Type [Left Forearm Peripheral IV ] IV Catheter Type [Left Wrist] INT / Saline Lock IV Catheter Type [Right Hand] INT / Saline Lock IV Catheter Type [Right INT / Saline Lock Antecubital] IV Catheter Type [Right Upper Mid-line arm] IV Catheter Type [Left Triple Lumen Cath Internal Jugular] IV Catheter Type [Left Hand] Peripheral IV IV Catheter Type [Left Peripheral IV Antecubital] Active Medications - Current Medications Current Medications: Generic Name Dose Route Start Last Admin Trade Name Freq PRN Reason Stop Dose Admin Acetaminophen 650 mg 10/05/20 16:34 12/17/20 21:37 Acetaminophen 325 Mg/10.15 Ml Oral Liqd Unit Dose FEEDTUBE 650 mg Q6H PRN Administration Non Cardiac Pain or Temp>100.5 Albuterol 2.5 mg 11/05/20 13:03 11/06/20 13:04 Albuterol 2.5 Mg/3 Ml Nebu IH 2.5 mg Q4HRT PRN Administration Shortness Of Breath Lipase/Protease/Amylase 1 each 10/05/20 11:09 Lipase 10,500/Protease 25,000/Amylase 43,750 (Units) Dr Barakat FEEDTUBE PRN PRN For Clogged Feeding Tube Enoxaparin Sodium 40 mg 10/22/20 10:00 12/17/20 09:34 Enoxaparin 40 Mg/0.4 Ml Inj SUB-Q 40 mg DAILY ERINN Administration Protocol Famotidine 20 mg 10/07/20 10:00 12/17/20 21:35 Famotidine 20 Mg Tab PO 20 mg BID ERINN Administration Furosemide 40 mg 10/17/20 10:00 12/17/20 09:33 Furosemide 40 Mg Tab PO 40 mg QDAY ERINN Administration Hydralazine HCl 20 mg 10/07/20 11:49 10/17/20 07:20 Hydralazine 20 Mg/1 Ml Inj IV 20 mg Q6H PRN Administration SBP >170 Dextrose 1,000 mls @ 42 mls/hr 12/15/20 11:00 12/18/20 05:08 D5w IV 42 mls/hr DIRECT ERINN Administration Simple Syrup 15 ml 10/05/20 11:09 Simple Syrup 15 Ml FEEDTUBE PRN PRN Hypoglycemia Simple Syrup 30 ml 10/05/20 11:09 Simple Syrup 15 Ml FEEDTUBE PRN PRN Hypoglycemia Sodium Bicarbonate 325 mg 10/05/20 11:09 12/16/20 08:19 Sodium Bicarbonate 325 Mg Tab FEEDTUBE 325 mg PRN PRN Administration For Clogged Feeding Tube Nutrition/Malnutrition Assess - Dietary Evaluation Nutrition/Malnutrition Findings: Nutrition Notes Start: 10/04/20 11:13 Freq: Status: Active Protocol: Document 12/17/20 12:16 AL (Rec: 12/17/20 12:20 AL [id number]) Co-Sign 12/17/20 12:16 LP Nutrition Notes Initial or Follow up Reassessment Current Diagnosis Respiratory Failure Other Pertinent Diagnosis C-Diff, Cardiac arrest, s/p c- section and supracervical hysterectomy, Brain Current Diet Jevity 1.2 at 60 mL/hr Labs/Tests 12/16 Na 156 Pertinent Medications Lasix D5 at 42 ml/hr Height 5 ft 8 in Weight 97.4 kg [place] Body Weight (kg) 63.63 BMI 32.6 Weight Status Obese Subjective/Other Information FU for TF tolerance. TF is running at 60 ml/hr (goal rate ). Pt still hypernatremic. Flush changed to 250 ml q4h in pt order to treat hypernatremia. RN made aware Percent of energy/protein needs met: 81%/100% Burn Absent Trauma Absent GI Symptoms None Food Allergy Yes Current % PO Negligible Minimum of two criteria Yes Interpretation of Weight Loss (severe) >2% in 1 week Fluid Accumulation Mild (non-severe) #2 Nutrition Diagnosis Malnutrition Diagnosis Progress(for reassessment Continues documentation) #1 Nutrition Diagnosis Inadequate oral intake Diagnosis Progress(for reassessment Continues documentation) Is patient on ventilator? No Is Patient Ambulatory and/or Out of Bed No REE-([facility]-confined to bed) 0.908 Kcal/Kg value to use for calculation 17 Approximate Energy Requirements Using 1656 kcal/Kg Calculation Used for Recommendations Kcal/kg Additional Notes PRO needs: 65-81 (0.8-1 g/kg AdBW 81kg) Fluid needs: 1 mL/kcal or per MD Nutrition Intervention Change Diet Order: Continue TF Nutrition Support: Jevity 1.2 at 60ml/hr. Flush 100ml q4h. Flush 250 ml q4h for Hypernatremia. Once hypernatremia is resolved, flush 100 q4h. Kcal 1,728 Protein (gm) 80 Fluid (mL) 1,162 Goal #1 TF tolerance Goal #2 Meet at least 75% of energy and protein needs Anticipated Discharge Needs: Unable to determine at this time Follow-Up By: 12/21/20 Additional Comments FU for stable TF and hypernatremia
[2020-12-18] MEDS: FAMOTIDINE 20 MG TAB PO SCH ×2 (09:42→21:40)
[2020-12-18] MEDS: FUROSEMIDE 40 MG TAB PO SCH (09:42)
[2020-12-18] MEDS: ENOXAPARIN 40 MG/0.4 ML INJ SUB-Q SCH (09:43)
[2020-12-18] MEDS: ACETAMINOPHEN 325 MG/10.15 ML ORAL LIQD UNIT DOSE FEEDTUBE PRN (21:40)
[2020-12-19] MEDS: FAMOTIDINE 20 MG TAB PO SCH ×2 (10:16→21:38)
[2020-12-19] MEDS: ENOXAPARIN 40 MG/0.4 ML INJ SUB-Q SCH (10:17)
[2020-12-19] MEDS: FUROSEMIDE 40 MG TAB PO SCH (10:17)
[2020-12-19] MEDS: DEXTROSE 5% IN WATER 1,000 ML IV SCH (21:37)
[2020-12-19] MEDS: ACETAMINOPHEN 325 MG/10.15 ML ORAL LIQD UNIT DOSE FEEDTUBE PRN (21:38)
[2020-12-20] MEDS: FAMOTIDINE 20 MG TAB PO SCH ×2 (09:18→21:22)
[2020-12-20] MEDS: FUROSEMIDE 40 MG TAB PO SCH (09:18)
[2020-12-20] MEDS: ENOXAPARIN 40 MG/0.4 ML INJ SUB-Q SCH (09:18)
--- NOTE | 2020-12-20 09:29 | Progress Note ---
Assessment and Plan Assessment and plan: Eclampsia/HELLP Syndrome, ADOLPH, DIC; s/p , s/p supracervical hyst 30 year old -[place] female CHE 10/25/20 at 36w5d who presents with seizures in triage on 10/02/20. Pt was not able to provide history but per pt's , she presented to the hospital to return a 24 hour urine specimen for analysis. She then suddenly reported that she did not feel good. She was taken to labor and delivery and shortly after arrival, she began seizing. During this time, a code met was called because the patient became hypoxic. She was then noted to be without a pulse. Chest compressions were started immediately, and the patient was emergently taken to the operating room for delivery of the fetus. Off note, This patient has had care at [facility] with comanagement by [facility] since 11 wks complicated by ADHD, morbid obesity, generalized anxiety disorder, panic attacks, chronic narcotic use, fibromyalgia, GERD, Irritable Bowel Syndrome, Migraines, h/o endometrial ablation and ovarian vein embolization, genital herpes, insomnia, LGA fetus, nausea and vomiting, polyhydramnios, quad screen positive for Down's Syndrome, and previous x 3. She is GBS negative. -- Sepsis with presumed Pneumonia Teated with iv abx, follow Cx -Completed cefepime course 5 days on 10/09/2020 -Check MRSA culture -Start vancomycin p.o. empirically for C. difficile total 10 days, given diarrhea and worsening leukocytosis, --Acute respiratory failure with hypoxia Patient extubated. --DIC (disseminated intravascular coagulation) vs HELLP syndrome Has anemia,thrombocytopenia and elevated liver enzymes Patient received multiple units of RBCs, FFP's, cryo at present not requiring transfusion. Has resolved H&H is 12 and 37. Hemoglobin hematocrit remained stable pending today. Hematology/oncology recommendations appreciated Continue to trend fibrinogen and INR Hemoglobin hematocrit remains stable today. Follow platelets transfuse as necessary. --Possible Eclampsia/HELLP Syndrome Patient presented with seizure-->hypoxia-->urgent C section-->hysterectomy for severe bleeding/DIC developed severe anemia-->received RBC, plt, FFP, cryo was on max pressors-->now off pressors still on vent, on sedation tracheostomy. 50% now. Hematology following --s/p Cardiac arrest x2 on admission and on 10/07 ACLS protocol followed by revival Echo showed preserved Ef --Shock-resolved now awaiting placement s/p pressor support Likely hypovolemic. on empirical antibiotics for possible sepsis. Continue to monitor blood pressure closely Trend H&H repeated H&H today stable not requiring transfusion. -- Hypernatremia --Lactic acidosis also resolving. As a result of poor organ perfusion and possible sepsis Continue IV hydration. Lactic acid is trending down Nephrology on board Overall prognosis extremely poor. --ADOLPH-resolved As a result of hypoperfusion and shock Continue IV hydration Cr stable, will follow up in the a.m. has been hemodynamically stable overall prognosis poor Even more quality of life extremely poor --DVT prophylaxis Patient presented with DIC No anticoagulants UTI -Was not present on admission -Diagnosed on 12/10/2020 Last day of Rocephin. 11:30: Pt brought to L&D triage for evaluation of possible labor. Pt accompanied by her spouse. Pt spouse poor historian; unable to obtain history- allergies at this time. Pt taken from registration to triage area via WC. Pt unresponsive, actively seizing with snorous respirations. wrapping machine operator, Kassy, called and requesting assistance. 11:35: Multiple staff at bedside. Pt 02 sat 67% on nonrebreather, unable to read BP at this time. Yifan Theodore CRNA, at bedside for intubation and assistance with IV insertion. INT attempt by multiple RNs unsuccessful at this time. 11:42: Pt being bagged by KORIN, 02% 79%. No pulse palpated, compressions started at this time; bharati young called and Dr. Newberry preparing OR for emergent c/s. 11:44: Continued compressions on stretcher while transporting pt to OR 1. Pt being bagged with jaw thrust manuever in place by KORIN Stringer student. 11:45: Arrival to OR 1. Dr. Newberry and Dr. Portillo present for emergent c/s. Code team arrived for continued care. patient revived and c/s done Patient has been bleeding from C/s site followed by supracervical hysterectomy for severe bleeding Patient transfused multiple units of PRBC, Patient in DIC. Transferred to the ICU 10/03. Patient seen and examined at bedside this morning. Patient is nonresponsive and mechanically ventilated. On pressors. Labs reviewed-has leukocytosis, anemia, thrombocytopenia, ADOLPH and lactic acidosis. Started on IV antibiotics to cover possible sepsis secondary to DIC. Hematology oncology recommendations appreciated-needs additional cryoprecipitate and FFP. Monitor D-dimer, fibrinogen and frequent labs. Nephrology consulted for lactic acidosis and ADOLPH. 10/04. Remains mechanically ventilated. Kevin antibiotics. Labs shows improved acidosis - lactic acid 3.5. Hb drop noted. Getting transfused 2 units PRBCs. Platelet count is ~40k. Continue to monitor labs closely. Critical care team on board. 10/05; xray reviewed, concerning for multifocal infilrate, likely underlying Pneumonia, will add ID consult to assist with management of this critically ill patient, start tube feed, closely monitor renal system 10/06: Resumed care, remains on mechanical ventilation. No active bleeding, H&H stable. Continue to monitor CBC and BMP. Continue IV antibiotic for underlying pneumonia. Follow critical care and ID recommendation. 10/07: Remains on mechanical ventilation. No active bleeding, H&H stable. Critical care following, wean off ventilation as tolerated. 10/08: Patient had another cardiac arrest last night. Remains on mechanical ventilation, update family. Continue supportive care -poor prognosis 10/09: Called patient mother and discussed about patient care and management. Answered all question to best of my knowledge and family satisfaction. Patient remains on mechanical ventilation, cardiac arrest x2 so far. Critically sick, poor prognosis 10/10: remains on mechanical ventilation. h/h stable, no active bleeding. monitor CBC/BMP 10/11: WBC trended up with diarrhea, started on vancomycin po. remains on MV, off pressor, tolerating TF 10/12: remains on MV, off pressor, tolerating TF. called family for update but unable to reach, could not leave message as it was full. cont supportive care, wean off vent as tolerated. 10/13/2020; patient is on mechanical ventilation, tolerating tube feeding. Patient has labored breathing. Neuro was consulted and recommend MRI. Patient is on Precedex. Rectal tube in place. 10/14/2020; patient is on mechanical ventilation, Precedex. Patient had fever and blood culture ordered. Patient is on IV vancomycin per ID recommendation. Neuro consulted and recommend MRI. Continue to monitor. Prognosis is guarded. 10/15/2020; patient is on mechanical ventilation, Precedex. Patient had fever and blood culture ordered. Patient is on IV vancomycin per ID recommendation. Neuro consulted and recommend MRI. Continue to monitor. Prognosis is guarded. 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 12/06/20; anoxic brain injury. Awaiting placement. 12/07/2020; anoxic brain injury, awaiting placement. 12/09/2020; anoxic brain injury, awaiting placement. 12/10/2020; patient had episodes of fever overnight. CBC, BMP, blood culture, UA and chest x-ray ordered, will follow and manage accordingly. Urinalysis is suggestive of UTI and I put the patient on ceftriaxone, order urine culture. Chest x-ray is normal. 12/11/2020; patient is on ceftriaxone day 2 for UTI. We will continue to follow urine culture. 12/12/2020. Day #3 of Rocephin for UTI. We will continue for 2 more days while she is here. Present UTI. 12/13/2020. Day #4 of Rocephin for UTI. Patient remains on 50% with tracheostomy. Remains unresponsive with evidence of anoxic encephalopathy unable to make needs known. 12/14/2020. Day #5 of Rocephin for UTI completed today. Remains encephalopathic unable to make needs known. Remains on 50% unable to decrease oxygen via tracheostomy. Overall prognosis remains extremely poor. 3/2: Continue to monitor. Stop and monitor antibiotics at this time. Continue to wean oxygen as tolerated. Wean oxygen as tolerated. Case management working on placement. 3: Continue supportive care aspiration precautions. Awaiting placement discussion. Monitor fever curve. Prognosis remains poor no evidence of neurological recovery as of today 3/4: Continue supportive care, check labs and chest xray. Still monitor off antibiotics. Monitor Sodium level 3: Patient remains with intermittent low grade fever, reviewed EEG from [facility] again, consistent for Ischemic Hypoxic Encephalopathy, patient with decorticating posturing type presentation. Will discuss with rock crushing machine operator to optimize diet so we can discontinue D5. CXR with no abnormality. Discussed extensively with the nursing staff at bedside CXR IMPRESSION: 1. No acute findings. History Interval history: Patient seen and examined, no clinical changes, still with low-grade intermittent fever latest notes from yesterday. Hospitalist Physical - Physical exam Narrative exam: VITAL SIGNS: Reviewed. GENERAL: No worsening respiratory distress HEAD: No signs of head trauma. Opens her eyes but no purposeful movement EYES: Pupils are equal. MOUTH: clear NECK: No adenopathy, no JVD. Trach CHEST: Rales posteriorly CARDIAC: normal S1 and S2, without murmurs, gallops, or rubs. ABDOMEN: PEG, Soft, non tender and non distended. surgical wound in tact, No rebound or guarding, and no masses palpated. Bowel Sounds normal. MUSCULOSKELETAL: Generalized anasacar. Decortication posturing. NEUROLOGIC EXAM: AWAKE BUT NOT RESPONSIVE SKIN: No obvious lesions - Constitutional Vitals: Temp Pulse Resp BP Pulse Ox 98.1 F 104 H 13 112/78 99 12/20/20 08:00 12/20/20 09:00 12/20/20 09:00 12/20/20 09:00 12/20/20 09:00 General appearance: Present: no acute distress, other (Patient does move when attempts to clean her tracheostomy and change her diaper otherwise no intelligible words.) HEART Score - HEART Score Age: < 45 Risk factors: 1-2 risk factors - Critical Actions Critical Actions: >7 pts:50-65% risk of adverse cardiac event. Early invasive measures Results - Labs CBC & Chem 7: 12/18/20 04:57 12/18/20 04:57 Labs: Laboratory Last Values WBC 8.6 K/mm3 (4.5-11.0) 12/18/20 04:57 RBC 5.16 M/mm3 (3.65-5.03) H 12/18/20 04:57 Hgb 13.0 gm/dl (10.1-14.3) 12/18/20 04:57 Hgb Comment See scanned result 10/04/20 Unknown Hct 41.6 % (30.3-42.9) 12/18/20 04:57 MCV 81 fl (79-97) 12/18/20 04:57 MCH 25 pg (28-32) L 12/18/20 04:57 MCHC 31 % (30-34) 12/18/20 04:57 RDW 14.5 % (13.2-15.2) 12/18/20 04:57 Plt Count 258 K/mm3 (140-440) 12/18/20 04:57 Lymph % (Auto) 24.1 % (13.4-35.0) 12/14/20 10:32 [place] % (Auto) 7.8 % (0.0-7.3) H 12/14/20 10:32 Eos % (Auto) 1.5 % (0.0-4.3) 12/14/20 10:32 Baso % (Auto) 0.3 % (0.0-1.8) 12/14/20 10:32 Lymph # (Auto) 2.5 K/mm3 (1.2-5.4) 12/14/20 10:32 [place] # (Auto) 0.8 K/mm3 (0.0-0.8) 12/14/20 10:32 Eos # (Auto) 0.2 K/mm3 (0.0-0.4) 12/14/20 10:32 Baso # (Auto) 0.0 K/mm3 (0.0-0.1) 12/14/20 10:32 Add Manual Diff Complete 12/10/20 09:37 Total Counted 100 12/10/20 09:37 Seg Neutrophils % 66.3 % (40.0-70.0) 12/14/20 10:32 Seg Neuts % (Manual) 81.0 % (40.0-70.0) H 12/10/20 09:37 Band Neutrophils % 2.0 % 10/15/20 05:50 Lymphocytes % (Manual) 17.0 % (13.4-35.0) 12/10/20 09:37 Reactive Lymphs % (Man) 1.0 % 10/02/20 12:18 Monocytes % (Manual) 2.0 % (0.0-7.3) 12/10/20 09:37 Eosinophils % (Manual) 1.0 % (0.0-4.3) 10/29/20 07:56 Myelocytes % 2.0 % 10/02/20 13:05 Metamyelocytes % 1.0 % 10/14/20 04:00 Nucleated RBC % Not Reportable 12/10/20 09:37 Seg Neutrophils # 6.8 K/mm3 (1.8-7.7) 12/14/20 10:32 Seg Neutrophils # Man 10.1 K/mm3 (1.8-7.7) H 12/10/20 09:37 Band Neutrophils # 0.0 K/mm3 12/10/20 09:37 Lymphocytes # (Manual) 2.1 K/mm3 (1.2-5.4) 12/10/20 09:37 Abs React Lymphs (Man) 0.0 K/mm3 12/10/20 09:37 Monocytes # (Manual) 0.3 K/mm3 (0.0-0.8) 12/10/20 09:37 Eosinophils # (Manual) 0.0 K/mm3 (0.0-0.4) 12/10/20 09:37 Basophils # (Manual) 0.0 K/mm3 (0.0-0.1) 12/10/20 09:37 Metamyelocytes # 0.0 K/mm3 12/10/20 09:37 Myelocytes # 0.0 K/mm3 12/10/20 09:37 Promyelocytes # 0.0 K/mm3 12/10/20 09:37 Blast Cells # 0.0 K/mm3 12/10/20 09:37 WBC Morphology Not Reportable 12/10/20 09:37 Hypersegmented Neuts Not Reportable 12/10/20 09:37 Hyposegmented Neuts Not Reportable 12/10/20 09:37 Hypogranular Neuts Not Reportable 12/10/20 09:37 Smudge Cells Not Reportable 12/10/20 09:37 Toxic Granulation Not Reportable 12/10/20 09:37 Toxic Vacuolation Not Reportable 12/10/20 09:37 Dohle Bodies Not Reportable 12/10/20 09:37 Pelger-Huet Anomaly Not Reportable 12/10/20 09:37 Ester Rods Not Reportable 12/10/20 09:37 Platelet Estimate Consistent w auto 12/10/20 09:37 Clumped Platelets Not Reportable 12/10/20 09:37 Plt Clumps, EDTA Not Reportable 12/10/20 09:37 Large Platelets Not Reportable 12/10/20 09:37 Giant Platelets Not Reportable 12/10/20 09:37 Platelet Satelliting Not Reportable 12/10/20 09:37 Plt Morphology Comment Not Reportable 12/10/20 09:37 RBC Morphology Normal 12/10/20 09:37 Dimorphic RBCs Not Reportable 12/10/20 09:37 Polychromasia Not Reportable 12/10/20 09:37 Hypochromasia 1+ 12/10/20 09:37 Poikilocytosis Not Reportable 12/10/20 09:37 Anisocytosis Not Reportable 12/10/20 09:37 Microcytosis Not Reportable 12/10/20 09:37 Macrocytosis Not Reportable 12/10/20 09:37 Spherocytes Not Reportable 12/10/20 09:37 Pappenheimer Bodies Not Reportable 12/10/20 09:37 Sickle Cells Not Reportable 12/10/20 09:37 Target Cells Not Reportable 12/10/20 09:37 Tear Drop Cells Not Reportable 12/10/20 09:37 Ovalocytes Not Reportable 12/10/20 09:37 Stomatocytes Few 10/14/20 04:00 Helmet Cells Not Reportable 12/10/20 09:37 [place] Bodies Not Reportable 12/10/20 09:37 Rhame Rings Not Reportable 12/10/20 09:37 [place] Cells Not Reportable 12/10/20 09:37 Bite Cells Not Reportable 12/10/20 09:37 Crenated Cell Not Reportable 12/10/20 09:37 Elliptocytes Not Reportable 12/10/20 09:37 Acanthocytes (Spur) Not Reportable 12/10/20 09:37 Rouleaux Not Reportable 12/10/20 09:37 Hemoglobin C Crystals Not Reportable 12/10/20 09:37 Schistocytes Not Reportable 12/10/20 09:37 Malaria parasites Not Reportable 12/10/20 09:37 Sickle Cell Solubility See scanned result 10/04/20 Unknown Hemoglobin A See scanned result 10/04/20 Unknown Hemoglobin A2 See scanned result 10/04/20 Unknown Hemoglobin A2 Prime See scanned result 10/04/20 Unknown Hemoglobin C See scanned result 10/04/20 Unknown Hemoglobin D See scanned result 10/04/20 Unknown Hemoglobin E See scanned result 10/04/20 Unknown Hgb F Diffential Stain See scanned result 10/04/20 Unknown Hemoglobin F Quant See scanned result 10/04/20 Unknown Hemoglobin G See scanned result 10/04/20 Unknown Hemoglobin S See scanned result 10/04/20 Unknown Hemoglobin O-[place] See scanned result 10/04/20 Unknown Hemoglobin [place] See scanned result 10/04/20 Unknown Hemoglobin Analilia See scanned result 10/04/20 Unknown Variant Hemoglobin See scanned result 10/04/20 Unknown Abnorm Hgb IEF Confirm See scanned result 10/04/20 Unknown Hemoglobin Interpret See scanned result 10/04/20 Unknown Hemoglobinopathy Note See scanned result 10/04/20 Unknown Sharad Bodies Not Reportable 12/10/20 09:37 Hem Pathologist Commnt No 12/10/20 09:37 PT 13.6 Sec. (12.2-14.9) 10/21/20 13:54 INR 1.06 (0.87-1.13) 10/21/20 13:54 APTT 31.6 Sec. (24.2-36.6) 10/03/20 00:40 Fibrinogen 336 mg/dl (211-480) 10/04/20 10:00 D-Dimer 1974.47 ng/mlDDU (0-234) H 11/11/20 13:50 ABG pH 7.459 pH Units (7.350-7.450) H 10/26/20 10:30 POC ABG pCO2 20.7 mmHg (32.0-48.0) L 10/13/20 07:18 ABG pCO2 32.4 mm Hg 10/26/20 10:30 POC ABG pO2 137.9 mmHg (83-108) H 10/13/20 07:18 ABG pO2 112.2 mm Hg (80.0-90.0) H 10/26/20 10:30 POC ABG HCO3 14.8 10/13/20 07:18 ABG HCO3 22.5 mmol/L (20.0-26.0) 10/26/20 10:30 ABG O2 Saturation 98.2 % (95.0-99.0) 10/26/20 10:30 ABG O2 Content 18.5 (0.0-44) 10/26/20 10:30 POC ABG Base Excess -6.9 10/13/20 07:18 ABG Base Excess -0.6 mmol/L (-2.0-3.0) 10/26/20 10:30 ABG Hemoglobin 13.5 gm/dl (12.0-16.0) 10/26/20 10:30 ABG Oxyhemoglobin 98.3 (94-98) H 10/13/20 07:18 ABG Carboxyhemoglobin 1.3 % (0.0-5.0) 10/26/20 10:30 ABG Methemoglobin 0.5 % (0.0-1.5) 10/26/20 10:30 ABG Sodium 135.9 mmol/L (136.0-145.0) L 10/13/20 07:18 ABG Potassium 3.7 mmol/L (3.40-4.50) 10/13/20 07:18 ABG Chloride 111.0 mmol/L (98-107) H 10/13/20 07:18 ABG Glucose 109 mg/dL (65-95) H 10/13/20 07:18 VBG pH 6.949 (7.320-7.420) L* 10/02/20 Unknown Oxyhemoglobin 96.5 % (95.0-99.0) 10/26/20 10:30 Carboxyhemoglobin 0.3 (0.5-1.5) L 10/13/20 07:18 FiO2 25 % 10/26/20 10:30 Sodium 150 mmol/L (137-145) H 12/18/20 04:57 Potassium 4.2 mmol/L (3.6-5.0) 12/18/20 04:57 Chloride 110.8 mmol/L (98-107) H 12/18/20 04:57 Carbon Dioxide 28 mmol/L (22-30) 12/18/20 04:57 Anion Gap 15 mmol/L 12/18/20 04:57 BUN 20 mg/dL (7-17) H 12/18/20 04:57 Creatinine 0.7 mg/dL (0.6-1.2) 12/18/20 04:57 Estimated GFR > 60 ml/min 12/18/20 04:57 BUN/Creatinine Ratio 29 % 12/18/20 04:57 Glucose 92 mg/dL (65-100) 12/18/20 04:57 POC Glucose 78 mg/dL (70-105) 12/20/20 05:34 Random Insulin 43.2 uIU/mL (<=19.6) H 11/02/20 19:19 Proinsulin See scanned result 11/02/20 19:19 C-Peptide 6.23 ng/mL (0.80-3.85) H 11/02/20 19:19 Lactic Acid 1.90 mmol/L (0.7-2.0) 10/04/20 22:00 Uric Acid 7.5 mg/dL (3.5-7.6) 10/02/20 13:05 Calcium 9.7 mg/dL (8.4-10.2) 12/18/20 04:57 Ionized Calcium 4.4 mg/dL (4.8-5.6) L 10/07/20 21:00 Phosphorus 4.60 mg/dL (2.5-4.5) H 11/13/20 10:05 Magnesium 2.10 mg/dL (1.7-2.3) 11/13/20 10:05 Total Bilirubin 0.50 mg/dL (0.1-1.2) 12/14/20 09:06 AST 63 units/L (5-40) H 12/14/20 09:06 ALT 42 units/L (7-56) 12/14/20 09:06 Alkaline Phosphatase 107 units/L (35-129) 12/14/20 09:06 Lactate Dehydrogenase 769 units/L (91-180) H 10/02/20 13:05 C-Reactive Protein 0.70 mg/dL (0.00-1.30) 11/11/20 13:50 NT-Pro-B Natriuret Pep 2788 pg/mL (0-450) H 10/04/20 10:00 Total Protein 8.3 g/dL (6.3-8.2) H 12/14/20 09:06 Albumin 3.8 g/dL (3.9-5) L 12/14/20 09:06 Albumin/Globulin Ratio 0.8 % 12/14/20 09:06 Procalcitonin < 0.05 ng/mL (<0.15) 11/11/20 13:50 Arterial Blood Glucose 109 mg/dL (65-95) H 10/13/20 07:18 Arterial Blood Ionized Calcium 4.6 mg/dL (4.6-5.3) 10/13/20 07:18 Urine Color Kelsey (Yellow) 12/10/20 09:25 Urine Turbidity Cloudy (Clear) 12/10/20 09:25 Urine pH 7.0 (5.0-7.0) 12/10/20 09:25 Ur Specific [place] 1.027 (1.003-1.030) 12/10/20 09:25 Urine Protein 100 mg/dl mg/dL (Negative) 12/10/20 09:25 Urine Glucose (UA) Neg mg/dL (Negative) 12/10/20 09:25 Urine Ketones Neg mg/dL (Negative) 12/10/20 09:25 Urine Blood Sm (Negative) 12/10/20 09:25 Urine Nitrite Neg (Negative) 12/10/20 09:25 Urine Bilirubin Neg (Negative) 12/10/20 09:25 Urine Urobilinogen 4.0 mg/dL (<2.0) 12/10/20 09:25 Ur Leukocyte Esterase Mod (Negative) 12/10/20 09:25 Urine WBC (Auto) 50.0 /HPF (0.0-6.0) H 12/10/20 09:25 Urine RBC (Auto) 27.0 /HPF (0.0-6.0) 12/10/20 09:25 U Epithel Cells (Auto) 8.0 /HPF (0-13.0) 12/10/20 09:25 Urine Bacteria (Auto) 4+ /HPF (Negative) 11/11/20 13:50 Urine WBC Clumps 3+ /HPF 11/11/20 13:50 Calcium Oxalate Crystal Few 11/11/20 13:50 Urine Mucus Few /HPF 11/11/20 13:50 Urine Yeast (Budding) 2+ /HPF 12/10/20 09:25 Vancomycin Trough 12.6 ug/mL (5.0-20.0) 10/21/20 13:54 Random Vancomycin 10.7 ug/mL (0-40.0) 10/16/20 13:09 Phenytoin 5.7 ug/mL (10.0-20.0) L 10/13/20 07:00 C. difficile Tox (PCR) Positive (Negative) 10/16/20 10:22 Coronavirus (PCR) Negative (Negative) 10/08/20 14:15 Blood Type O POSITIVE 10/02/20 12:50 Antibody Screen Negative 10/02/20 12:50 Crossmatch See Detail 10/02/20 12:50 - Diagnostic Impressions Diagnostic Impressions: Echocardiogram 10/03/20 13:42 Transthoracic Echocardiogram Indication: S/P Cardiac Arrest R/O Cardiomyopathy BP: 133/71 Conclusions *Global left ventricular systolic function is normal. *The estimated ejection fraction is 60-65%. *There is trace of mitral regurgitation. *The right 0heart chambers are both slightly dilated. *There is mild tricuspid regurgitation. *There is mild-moderate pulmonary hypertension. *The right ventricular systolic pressure is calculated at 44 mmHg. *The study quality is technically difficult. Findings Procedure Info: The study quality is technically difficult. The study is technically limited due to patient body habitus. The study was technically limited due to the patient's inability to lay in the left lateral decubitus position. Left Ventricle: The left ventricular chamber size is normal. There is no left ventricular hypertrophy. Global left ventricular systolic function is normal. The estimated ejection fraction is 60-65%. Left Atrium: The left atrial chamber size is normal. Right Ventricle: The right ventricle is slightly dilated. Right Atrium: The right atrium is mildly dilated. Aortic Valve: The aortic valve leaflets are mildly thickened. There is no evidence of aortic regurgitation. There is no evidence of aortic stenosis. Mitral Valve: The mitral valve leaflets are mildly thickened. There is trace of mitral regurgitation. There is no evidence of mitral stenosis. Tricuspid Valve: There is mild tricuspid regurgitation. The right ventricular systolic pressure is calculated at 44 mmHg. There is evidence of mild pulmonary hypertension. Pulmonic Valve: There is trace pulmonic regurgitation. Pericardium: There is no pericardial effusion. Aorta: There is no dilatation of the ascending aorta. There is no dilatation of the aortic root. Venous: The inferior vena cava is dilated. Measurements Chambers 2D Name Value Normal Range IVSd (2D) 1 cm (0.6 - 1.1) LVPWd (2D) 1.01 cm (0.6 - 1.1) LVIDd (2D) 4.58 cm (3.7 - 5.6) LVIDs (2D) 3.17 cm (2 - 3.8) LV FS (2D) 30.93 % - EF Teichholz (2D) 58.66 % - Ao root diameter (2D) 2.94 cm (2 - 3.7) Volumes/Mass Name Value Normal Range LA ESV SP 4CH (A/L) 72.82 ml - LA ESV SP 2CH (A/L) 66.86 ml - LA ESV BP (A/L) 74.49 ml - LA ESV SP 4CH (MOD) 71.03 ml - LA ESV SP 2CH (MOD) 64.3 ml - LV EDV SP 4CH (MOD) 98.82 ml - LV ESV SP 4CH (MOD) 24.8 ml - EF SP 4CH (MOD) 74.9 % - LV EDV SP 2CH (MOD) 86.1 ml - LV ESV SP 2CH (MOD) 36.93 ml - EF SP 2CH (MOD) 57.11 % - LV EDV BP 94.4 ml - LV ESV BP 32.66 ml - BP EF (MOD) 65.4 % - Diastolic/Systolic Function Name Value Normal Range MV E-wave Vmax 1.04 m/sec - MV deceleration time 160.46 msec - MV A-wave Vmax 0.92 m/sec - MV E:A ratio 1.14 ratio - Aortic Valve Name Value Normal Range AV Vmax 2.12 m/sec - AV VTI 22.37 cm - AV peak gradient 17.95 mmHg - AV mean gradient 7.29 mmHg - LVOT diameter 2.01 cm - LVOT Vmax 1.8 m/sec - LVOT VTI 27.17 cm - LVOT peak gradient 12.91 mmHg - LVOT mean gradient 6.83 mmHg - SV LVOT 86.42 ml - ANITA (continuity Vmax) 2.7 cm2 - ANITA (continuity VTI) 3.86 cm2 - Ascending Ao 3.18 cm - Tricuspid Valve Name Value Normal Range TV E-wave Vmax 0.88 m/sec - TR Vmax 3.01 m/sec - TR peak gradient 36.27 mmHg - RAP 8 mmHg - RVSP 44 mmHg - IVC diameter 2.65 cm (1.2 - 2.3) Pulmonic Valve/Qp:Qs Name Value Normal Range PV Vmax 1.22 m/sec - PV peak gradient 5.91 mmHg - RVOT Vmax 0.87 m/sec - RVOT VTI 13.32 cm - RVOT peak gradient 3 mmHg - PV acceleration time 110.37 msec - [place]/IV: Voiding Method External Female Catheter IV Catheter Type [Right Foot] INT / Saline Lock IV Catheter Type [Left Forearm Peripheral IV ] IV Catheter Type [Left Wrist] INT / Saline Lock IV Catheter Type [Right Hand] INT / Saline Lock IV Catheter Type [Right INT / Saline Lock Antecubital] IV Catheter Type [Right Upper Mid-line arm] IV Catheter Type [Left Triple Lumen Cath Internal Jugular] IV Catheter Type [Left Hand] Peripheral IV IV Catheter Type [Left Peripheral IV Antecubital] Active Medications - Current Medications Current Medications: Generic Name Dose Route Start Last Admin Trade Name Freq PRN Reason Stop Dose Admin Acetaminophen 650 mg 10/05/20 16:34 12/19/20 21:38 Acetaminophen 325 Mg/10.15 Ml Oral Liqd Unit Dose FEEDTUBE 650 mg Q6H PRN Administration Non Cardiac Pain or Temp>100.5 Albuterol 2.5 mg 11/05/20 13:03 11/06/20 13:04 Albuterol 2.5 Mg/3 Ml Nebu IH 2.5 mg Q4HRT PRN Administration Shortness Of Breath Lipase/Protease/Amylase 1 each 10/05/20 11:09 Lipase 10,500/Protease 25,000/Amylase 43,750 (Units) Dr Barakat FEEDTUBE PRN PRN For Clogged Feeding Tube Enoxaparin Sodium 40 mg 10/22/20 10:00 12/20/20 09:18 Enoxaparin 40 Mg/0.4 Ml Inj SUB-Q 40 mg DAILY ERINN Administration Protocol Famotidine 20 mg 10/07/20 10:00 12/20/20 09:18 Famotidine 20 Mg Tab PO 20 mg BID ERINN Administration Furosemide 40 mg 10/17/20 10:00 12/20/20 09:18 Furosemide 40 Mg Tab PO 40 mg QDAY ERINN Administration Hydralazine HCl 20 mg 10/07/20 11:49 10/17/20 07:20 Hydralazine 20 Mg/1 Ml Inj IV 20 mg Q6H PRN Administration SBP >170 Dextrose 1,000 mls @ 42 mls/hr 12/15/20 11:00 12/19/20 21:37 D5w IV 42 mls/hr DIRECT ERINN Administration Simple Syrup 15 ml 10/05/20 11:09 Simple Syrup 15 Ml FEEDTUBE PRN PRN Hypoglycemia Simple Syrup 30 ml 10/05/20 11:09 Simple Syrup 15 Ml FEEDTUBE PRN PRN Hypoglycemia Sodium Bicarbonate 325 mg 10/05/20 11:09 12/16/20 08:19 Sodium Bicarbonate 325 Mg Tab FEEDTUBE 325 mg PRN PRN Administration For Clogged Feeding Tube Nutrition/Malnutrition Assess - Dietary Evaluation Nutrition/Malnutrition Findings: Nutrition Notes Start: 10/04/20 11:13 Freq: Status: Active Protocol: Document 12/17/20 12:16 AL (Rec: 12/17/20 12:20 AL [id number]) Co-Sign 12/17/20 12:16 LP Nutrition Notes Initial or Follow up Reassessment Current Diagnosis Respiratory Failure Other Pertinent Diagnosis C-Diff, Cardiac arrest, s/p c- section and supracervical hysterectomy, Brain Current Diet Jevity 1.2 at 60 mL/hr Labs/Tests 12/16 Na 156 Pertinent Medications Lasix D5 at 42 ml/hr Height 5 ft 8 in Weight 97.4 kg [place] Body Weight (kg) 63.63 BMI 32.6 Weight Status Obese Subjective/Other Information FU for TF tolerance. TF is running at 60 ml/hr (goal rate ). Pt still hypernatremic. Flush changed to 250 ml q4h in pt order to treat hypernatremia. RN made aware Percent of energy/protein needs met: 81%/100% Burn Absent Trauma Absent GI Symptoms None Food Allergy Yes Current % PO Negligible Minimum of two criteria Yes Interpretation of Weight Loss (severe) >2% in 1 week Fluid Accumulation Mild (non-severe) #2 Nutrition Diagnosis Malnutrition Diagnosis Progress(for reassessment Continues documentation) #1 Nutrition Diagnosis Inadequate oral intake Diagnosis Progress(for reassessment Continues documentation) Is patient on ventilator? No Is Patient Ambulatory and/or Out of Bed No REE-([facility]-confined to bed) 2079.908 Kcal/Kg value to use for calculation 17 Approximate Energy Requirements Using 1656 kcal/Kg Calculation Used for Recommendations Kcal/kg Additional Notes PRO needs: 65-81 (0.8-1 g/kg AdBW 81kg) Fluid needs: 1 mL/kcal or per MD Nutrition Intervention Change Diet Order: Continue TF Nutrition Support: Jevity 1.2 at 60ml/hr. Flush 100ml q4h. Flush 250 ml q4h for Hypernatremia. Once hypernatremia is resolved, flush 100 q4h. Kcal 1,728 Protein (gm) 80 Fluid (mL) 1,162 Goal #1 TF tolerance Goal #2 Meet at least 75% of energy and protein needs Anticipated Discharge Needs: Unable to determine at this time Follow-Up By: 12/21/20 Additional Comments FU for stable TF and hypernatremia
--- NOTE | 2020-12-20 09:32 | Progress Note ---
Assessment and Plan Assessment and plan: Eclampsia/HELLP Syndrome, ADOLPH, DIC; s/p , s/p supracervical hyst 30 year old -[place] female CHE 10/25/20 at 36w5d who presents with seizures in triage on 10/02/20. Pt was not able to provide history but per pt's , she presented to the hospital to return a 24 hour urine specimen for analysis. She then suddenly reported that she did not feel good. She was taken to labor and delivery and shortly after arrival, she began seizing. During this time, a code met was called because the patient became hypoxic. She was then noted to be without a pulse. Chest compressions were started immediately, and the patient was emergently taken to the operating room for delivery of the fetus. Off note, This patient has had care at [facility] with comanagement by [facility] since 11 wks complicated by ADHD, morbid obesity, generalized anxiety disorder, panic attacks, chronic narcotic use, fibromyalgia, GERD, Irritable Bowel Syndrome, Migraines, h/o endometrial ablation and ovarian vein embolization, genital herpes, insomnia, LGA fetus, nausea and vomiting, polyhydramnios, quad screen positive for Down's Syndrome, and previous x 3. She is GBS negative. -- Sepsis with presumed Pneumonia Teated with iv abx, follow Cx -Completed cefepime course 5 days on 10/09/2020 -Check MRSA culture -Start vancomycin p.o. empirically for C. difficile total 10 days, given diarrhea and worsening leukocytosis, --Acute respiratory failure with hypoxia Patient extubated. --DIC (disseminated intravascular coagulation) vs HELLP syndrome Has anemia,thrombocytopenia and elevated liver enzymes Patient received multiple units of RBCs, FFP's, cryo at present not requiring transfusion. Has resolved H&H is 12 and 37. Hemoglobin hematocrit remained stable pending today. Hematology/oncology recommendations appreciated Continue to trend fibrinogen and INR Hemoglobin hematocrit remains stable today. Follow platelets transfuse as necessary. --Possible Eclampsia/HELLP Syndrome Patient presented with seizure-->hypoxia-->urgent C section-->hysterectomy for severe bleeding/DIC developed severe anemia-->received RBC, plt, FFP, cryo was on max pressors-->now off pressors still on vent, on sedation tracheostomy. 50% now. Hematology following --s/p Cardiac arrest x2 on admission and on 10/07 ACLS protocol followed by revival Echo showed preserved Ef --Shock-resolved now awaiting placement s/p pressor support Likely hypovolemic. on empirical antibiotics for possible sepsis. Continue to monitor blood pressure closely Trend H&H repeated H&H today stable not requiring transfusion. -- Hypernatremia --Lactic acidosis also resolving. As a result of poor organ perfusion and possible sepsis Continue IV hydration. Lactic acid is trending down Nephrology on board Overall prognosis extremely poor. --ADOLPH-resolved As a result of hypoperfusion and shock Continue IV hydration Cr stable, will follow up in the a.m. has been hemodynamically stable overall prognosis poor Even more quality of life extremely poor --DVT prophylaxis Patient presented with DIC No anticoagulants UTI -Was not present on admission -Diagnosed on 12/10/2020 Last day of Rocephin. 11:30: Pt brought to L&D triage for evaluation of possible labor. Pt accompanied by her spouse. Pt spouse poor historian; unable to obtain history- allergies at this time. Pt taken from registration to triage area via WC. Pt unresponsive, actively seizing with snorous respirations. marketing administrator, Kassy, called and requesting assistance. 11:35: Multiple staff at bedside. Pt 02 sat 67% on nonrebreather, unable to read BP at this time. Yifan Theodore CRNA, at bedside for intubation and assistance with IV insertion. INT attempt by multiple RNs unsuccessful at this time. 11:42: Pt being bagged by KORIN, 02% 79%. No pulse palpated, compressions started at this time; bharati young called and Dr. Newberry preparing OR for emergent c/s. 11:44: Continued compressions on stretcher while transporting pt to OR 1. Pt being bagged with jaw thrust manuever in place by KORIN Stringer student. 11:45: Arrival to OR 1. Dr. Newberry and Dr. Portillo present for emergent c/s. Code team arrived for continued care. patient revived and c/s done Patient has been bleeding from C/s site followed by supracervical hysterectomy for severe bleeding Patient transfused multiple units of PRBC, Patient in DIC. Transferred to the ICU 10/03. Patient seen and examined at bedside this morning. Patient is nonresponsive and mechanically ventilated. On pressors. Labs reviewed-has leukocytosis, anemia, thrombocytopenia, ADOLPH and lactic acidosis. Started on IV antibiotics to cover possible sepsis secondary to DIC. Hematology oncology recommendations appreciated-needs additional cryoprecipitate and FFP. Monitor D-dimer, fibrinogen and frequent labs. Nephrology consulted for lactic acidosis and ADOLPH. 10/04. Remains mechanically ventilated. Kevin antibiotics. Labs shows improved acidosis - lactic acid 3.5. Hb drop noted. Getting transfused 2 units PRBCs. Platelet count is ~40k. Continue to monitor labs closely. Critical care team on board. 10/05; xray reviewed, concerning for multifocal infilrate, likely underlying Pneumonia, will add ID consult to assist with management of this critically ill patient, start tube feed, closely monitor renal system 10/06: Resumed care, remains on mechanical ventilation. No active bleeding, H&H stable. Continue to monitor CBC and BMP. Continue IV antibiotic for underlying pneumonia. Follow critical care and ID recommendation. 10/07: Remains on mechanical ventilation. No active bleeding, H&H stable. Critical care following, wean off ventilation as tolerated. 10/08: Patient had another cardiac arrest last night. Remains on mechanical ventilation, update family. Continue supportive care -poor prognosis 10/09: Called patient mother and discussed about patient care and management. Answered all question to best of my knowledge and family satisfaction. Patient remains on mechanical ventilation, cardiac arrest x2 so far. Critically sick, poor prognosis 10/10: remains on mechanical ventilation. h/h stable, no active bleeding. monitor CBC/BMP 10/11: WBC trended up with diarrhea, started on vancomycin po. remains on MV, off pressor, tolerating TF 10/12: remains on MV, off pressor, tolerating TF. called family for update but unable to reach, could not leave message as it was full. cont supportive care, wean off vent as tolerated. 10/13/2020; patient is on mechanical ventilation, tolerating tube feeding. Patient has labored breathing. Neuro was consulted and recommend MRI. Patient is on Precedex. Rectal tube in place. 10/14/2020; patient is on mechanical ventilation, Precedex. Patient had fever and blood culture ordered. Patient is on IV vancomycin per ID recommendation. Neuro consulted and recommend MRI. Continue to monitor. Prognosis is guarded. 10/15/2020; patient is on mechanical ventilation, Precedex. Patient had fever and blood culture ordered. Patient is on IV vancomycin per ID recommendation. Neuro consulted and recommend MRI. Continue to monitor. Prognosis is guarded. 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 12/06/20; anoxic brain injury. Awaiting placement. 12/07/2020; anoxic brain injury, awaiting placement. 12/09/2020; anoxic brain injury, awaiting placement. 12/10/2020; patient had episodes of fever overnight. CBC, BMP, blood culture, UA and chest x-ray ordered, will follow and manage accordingly. Urinalysis is suggestive of UTI and I put the patient on ceftriaxone, order urine culture. Chest x-ray is normal. 12/11/2020; patient is on ceftriaxone day 2 for UTI. We will continue to follow urine culture. 12/12/2020. Day #3 of Rocephin for UTI. We will continue for 2 more days while she is here. Present UTI. 12/13/2020. Day #4 of Rocephin for UTI. Patient remains on 50% with tracheostomy. Remains unresponsive with evidence of anoxic encephalopathy unable to make needs known. 12/14/2020. Day #5 of Rocephin for UTI completed today. Remains encephalopathic unable to make needs known. Remains on 50% unable to decrease oxygen via tracheostomy. Overall prognosis remains extremely poor. 3/2: Continue to monitor. Stop and monitor antibiotics at this time. Continue to wean oxygen as tolerated. Wean oxygen as tolerated. Case management working on placement. 3: Continue supportive care aspiration precautions. Awaiting placement discussion. Monitor fever curve. Prognosis remains poor no evidence of neurological recovery as of today 3/4: Continue supportive care, check labs and chest xray. Still monitor off antibiotics. Monitor Sodium level 12/18: Patient remains with intermittent low grade fever, reviewed EEG from [facility] again, consistent for Ischemic Hypoxic Encephalopathy, patient with decorticating posturing type presentation. Will discuss with tenant relations coordinator to optimize diet so we can discontinue D5. CXR with no abnormality. Discussed extensively with the nursing staff at bedside CXR IMPRESSION: 1. No acute findings. 12/19: No clinical change 12/20: No clinical change, now off abx, monitor, discussed her medications with our pharmacist I believe that her posture and rigidity is likely from underlying anoxic encephalopathy. Continue to monitor and await placement decision. Continue aggressive suctioning. History Interval history: Patient seen and examined, no clinical changes, no new fever this morning. Still with rigid upper extremity pain Hospitalist Physical - Physical exam Narrative exam: VITAL SIGNS: Reviewed. GENERAL: No worsening respiratory distress HEAD: No signs of head trauma. Opens her eyes but no purposeful movement EYES: Pupils are equal. MOUTH: clear NECK: No adenopathy, no JVD. Trach CHEST: Rales posteriorly CARDIAC: normal S1 and S2, without murmurs, gallops, or rubs. ABDOMEN: PEG, Soft, non tender and non distended. surgical wound in tact, No rebound or guarding, and no masses palpated. Bowel Sounds normal. MUSCULOSKELETAL: Generalized anasacar. Decortication posture, rigid NEUROLOGIC EXAM: AWAKE BUT NOT RESPONSIVE SKIN: No obvious lesions - Constitutional Vitals: Temp Pulse Resp BP Pulse Ox 98.1 F 104 H 13 112/78 99 12/20/20 08:00 12/20/20 09:00 12/20/20 09:00 12/20/20 09:00 12/20/20 09:00 General appearance: Present: no acute distress, other (Patient does move when attempts to clean her tracheostomy and change her diaper otherwise no in telligible words.) HEART Score - HEART Score Age: < 45 Risk factors: 1-2 risk factors - Critical Actions Critical Actions: >7 pts:50-65% risk of adverse cardiac event. Early invasive measures Results - Labs CBC & Chem 7: 12/18/20 04:57 12/18/20 04:57 Labs: Laboratory Last Values WBC 8.6 K/mm3 (4.5-11.0) 12/18/20 04:57 RBC 5.16 M/mm3 (3.65-5.03) H 12/18/20 04:57 Hgb 13.0 gm/dl (10.1-14.3) 12/18/20 04:57 Hgb Comment See scanned result 10/04/20 Unknown Hct 41.6 % (30.3-42.9) 12/18/20 04:57 MCV 81 fl (79-97) 12/18/20 04:57 MCH 25 pg (28-32) L 12/18/20 04:57 MCHC 31 % (30-34) 12/18/20 04:57 RDW 14.5 % (13.2-15.2) 12/18/20 04:57 Plt Count 258 K/mm3 (140-440) 12/18/20 04:57 Lymph % (Auto) 24.1 % (13.4-35.0) 12/14/20 10:32 [place] % (Auto) 7.8 % (0.0-7.3) H 12/14/20 10:32 Eos % (Auto) 1.5 % (0.0-4.3) 12/14/20 10:32 Baso % (Auto) 0.3 % (0.0-1.8) 12/14/20 10:32 Lymph # (Auto) 2.5 K/mm3 (1.2-5.4) 12/14/20 10:32 [place] # (Auto) 0.8 K/mm3 (0.0-0.8) 12/14/20 10:32 Eos # (Auto) 0.2 K/mm3 (0.0-0.4) 12/14/20 10:32 Baso # (Auto) 0.0 K/mm3 (0.0-0.1) 12/14/20 10:32 Add Manual Diff Complete 12/10/20 09:37 Total Counted 100 12/10/20 09:37 Seg Neutrophils % 66.3 % (40.0-70.0) 12/14/20 10:32 Seg Neuts % (Manual) 81.0 % (40.0-70.0) H 12/10/20 09:37 Band Neutrophils % 2.0 % 10/15/20 05:50 Lymphocytes % (Manual) 17.0 % (13.4-35.0) 12/10/20 09:37 Reactive Lymphs % (Man) 1.0 % 10/02/20 12:18 Monocytes % (Manual) 2.0 % (0.0-7.3) 12/10/20 09:37 Eosinophils % (Manual) 1.0 % (0.0-4.3) 10/29/20 07:56 Myelocytes % 2.0 % 10/02/20 13:05 Metamyelocytes % 1.0 % 10/14/20 04:00 Nucleated RBC % Not Reportable 12/10/20 09:37 Seg Neutrophils # 6.8 K/mm3 (1.8-7.7) 12/14/20 10:32 Seg Neutrophils # Man 10.1 K/mm3 (1.8-7.7) H 12/10/20 09:37 Band Neutrophils # 0.0 K/mm3 12/10/20 09:37 Lymphocytes # (Manual) 2.1 K/mm3 (1.2-5.4) 12/10/20 09:37 Abs React Lymphs (Man) 0.0 K/mm3 12/10/20 09:37 Monocytes # (Manual) 0.3 K/mm3 (0.0-0.8) 12/10/20 09:37 Eosinophils # (Manual) 0.0 K/mm3 (0.0-0.4) 12/10/20 09:37 Basophils # (Manual) 0.0 K/mm3 (0.0-0.1) 12/10/20 09:37 Metamyelocytes # 0.0 K/mm3 12/10/20 09:37 Myelocytes # 0.0 K/mm3 12/10/20 09:37 Promyelocytes # 0.0 K/mm3 12/10/20 09:37 Blast Cells # 0.0 K/mm3 12/10/20 09:37 WBC Morphology Not Reportable 12/10/20 09:37 Hypersegmented Neuts Not Reportable 12/10/20 09:37 Hyposegmented Neuts Not Reportable 12/10/20 09:37 Hypogranular Neuts Not Reportable 12/10/20 09:37 Smudge Cells Not Reportable 12/10/20 09:37 Toxic Granulation Not Reportable 12/10/20 09:37 Toxic Vacuolation Not Reportable 12/10/20 09:37 Dohle Bodies Not Reportable 12/10/20 09:37 Pelger-Huet Anomaly Not Reportable 12/10/20 09:37 Ester Rods Not Reportable 12/10/20 09:37 Platelet Estimate Consistent w auto 12/10/20 09:37 Clumped Platelets Not Reportable 12/10/20 09:37 Plt Clumps, EDTA Not Reportable 12/10/20 09:37 Large Platelets Not Reportable 12/10/20 09:37 Giant Platelets Not Reportable 12/10/20 09:37 Platelet Satelliting Not Reportable 12/10/20 09:37 Plt Morphology Comment Not Reportable 12/10/20 09:37 RBC Morphology Normal 12/10/20 09:37 Dimorphic RBCs Not Reportable 12/10/20 09:37 Polychromasia Not Reportable 12/10/20 09:37 Hypochromasia 1+ 12/10/20 09:37 Poikilocytosis Not Reportable 12/10/20 09:37 Anisocytosis Not Reportable 12/10/20 09:37 Microcytosis Not Reportable 12/10/20 09:37 Macrocytosis Not Reportable 12/10/20 09:37 Spherocytes Not Reportable 12/10/20 09:37 Pappenheimer Bodies Not Reportable 12/10/20 09:37 Sickle Cells Not Reportable 12/10/20 09:37 Target Cells Not Reportable 12/10/20 09:37 Tear Drop Cells Not Reportable 12/10/20 09:37 Ovalocytes Not Reportable 12/10/20 09:37 Stomatocytes Few 10/14/20 04:00 Helmet Cells Not Reportable 12/10/20 09:37 [place] Bodies Not Reportable 12/10/20 09:37 [place] Rings Not Reportable 12/10/20 09:37 [place] Cells Not Reportable 12/10/20 09:37 Bite Cells Not Reportable 12/10/20 09:37 Crenated Cell Not Reportable 12/10/20 09:37 Elliptocytes Not Reportable 12/10/20 09:37 Acanthocytes (Spur) Not Reportable 12/10/20 09:37 Rouleaux Not Reportable 12/10/20 09:37 Hemoglobin C Crystals Not Reportable 12/10/20 09:37 Schistocytes Not Reportable 12/10/20 09:37 Malaria parasites Not Reportable 12/10/20 09:37 Sickle Cell Solubility See scanned result 10/04/20 Unknown Hemoglobin A See scanned result 10/04/20 Unknown Hemoglobin A2 See scanned result 10/04/20 Unknown Hemoglobin A2 Prime See scanned result 10/04/20 Unknown Hemoglobin C See scanned result 10/04/20 Unknown Hemoglobin D See scanned result 10/04/20 Unknown Hemoglobin E See scanned result 10/04/20 Unknown Hgb F Diffential Stain See scanned result 10/04/20 Unknown Hemoglobin F Quant See scanned result 10/04/20 Unknown Hemoglobin G See scanned result 10/04/20 Unknown Hemoglobin S See scanned result 10/04/20 Unknown Hemoglobin [place] See scanned result 10/04/20 Unknown Hemoglobin [place] See scanned result 10/04/20 Unknown Hemoglobin Analilia See scanned result 10/04/20 Unknown Variant Hemoglobin See scanned result 10/04/20 Unknown Abnorm Hgb IEF Confirm See scanned result 10/04/20 Unknown Hemoglobin Interpret See scanned result 10/04/20 Unknown Hemoglobinopathy Note See scanned result 10/04/20 Unknown Sharad Bodies Not Reportable 12/10/20 09:37 Hem Pathologist Commnt No 12/10/20 09:37 PT 13.6 Sec. (12.2-14.9) 10/21/20 13:54 INR 1.06 (0.87-1.13) 10/21/20 13:54 APTT 31.6 Sec. (24.2-36.6) 10/03/20 00:40 Fibrinogen 336 mg/dl (211-480) 10/04/20 10:00 D-Dimer 1974.47 ng/mlDDU (0-234) H 11/11/20 13:50 ABG pH 7.459 pH Units (7.350-7.450) H 10/26/20 10:30 POC ABG pCO2 20.7 mmHg (32.0-48.0) L 10/13/20 07:18 ABG pCO2 32.4 mm Hg 10/26/20 10:30 POC ABG pO2 137.9 mmHg (83-108) H 10/13/20 07:18 ABG pO2 112.2 mm Hg (80.0-90.0) H 10/26/20 10:30 POC ABG HCO3 14.8 10/13/20 07:18 ABG HCO3 22.5 mmol/L (20.0-26.0) 10/26/20 10:30 ABG O2 Saturation 98.2 % (95.0-99.0) 10/26/20 10:30 ABG O2 Content 18.5 (0.0-44) 10/26/20 10:30 POC ABG Base Excess -6.9 10/13/20 07:18 ABG Base Excess -0.6 mmol/L (-2.0-3.0) 10/26/20 10:30 ABG Hemoglobin 13.5 gm/dl (12.0-16.0) 10/26/20 10:30 ABG Oxyhemoglobin 98.3 (94-98) H 10/13/20 07:18 ABG Carboxyhemoglobin 1.3 % (0.0-5.0) 10/26/20 10:30 ABG Methemoglobin 0.5 % (0.0-1.5) 10/26/20 10:30 ABG Sodium 135.9 mmol/L (136.0-145.0) L 10/13/20 07:18 ABG Potassium 3.7 mmol/L (3.40-4.50) 10/13/20 07:18 ABG Chloride 111.0 mmol/L (98-107) H 10/13/20 07:18 ABG Glucose 109 mg/dL (65-95) H 10/13/20 07:18 VBG pH 6.949 (7.320-7.420) L* 10/02/20 Unknown Oxyhemoglobin 96.5 % (95.0-99.0) 10/26/20 10:30 Carboxyhemoglobin 0.3 (0.5-1.5) L 10/13/20 07:18 FiO2 25 % 10/26/20 10:30 Sodium 150 mmol/L (137-145) H 12/18/20 04:57 Potassium 4.2 mmol/L (3.6-5.0) 12/18/20 04:57 Chloride 110.8 mmol/L (98-107) H 12/18/20 04:57 Carbon Dioxide 28 mmol/L (22-30) 12/18/20 04:57 Anion Gap 15 mmol/L 12/18/20 04:57 BUN 20 mg/dL (7-17) H 12/18/20 04:57 Creatinine 0.7 mg/dL (0.6-1.2) 12/18/20 04:57 Estimated GFR > 60 ml/min 12/18/20 04:57 BUN/Creatinine Ratio 29 % 12/18/20 04:57 Glucose 92 mg/dL (65-100) 12/18/20 04:57 POC Glucose 78 mg/dL (70-105) 12/20/20 05:34 Random Insulin 43.2 uIU/mL (<=19.6) H 11/02/20 19:19 Proinsulin See scanned result 11/02/20 19:19 C-Peptide 6.23 ng/mL (0.80-3.85) H 11/02/20 19:19 Lactic Acid 1.90 mmol/L (0.7-2.0) 10/04/20 22:00 Uric Acid 7.5 mg/dL (3.5-7.6) 10/02/20 13:05 Calcium 9.7 mg/dL (8.4-10.2) 12/18/20 04:57 Ionized Calcium 4.4 mg/dL (4.8-5.6) L 10/07/20 21:00 Phosphorus 4.60 mg/dL (2.5-4.5) H 11/13/20 10:05 Magnesium 2.10 mg/dL (1.7-2.3) 11/13/20 10:05 Total Bilirubin 0.50 mg/dL (0.1-1.2) 12/14/20 09:06 AST 63 units/L (5-40) H 12/14/20 09:06 ALT 42 units/L (7-56) 12/14/20 09:06 Alkaline Phosphatase 107 units/L (35-129) 12/14/20 09:06 Lactate Dehydrogenase 769 units/L (91-180) H 10/02/20 13:05 C-Reactive Protein 0.70 mg/dL (0.00-1.30) 11/11/20 13:50 NT-Pro-B Natriuret Pep 2788 pg/mL (0-450) H 10/04/20 10:00 Total Protein 8.3 g/dL (6.3-8.2) H 12/14/20 09:06 Albumin 3.8 g/dL (3.9-5) L 12/14/20 09:06 Albumin/Globulin Ratio 0.8 % 12/14/20 09:06 Procalcitonin < 0.05 ng/mL (<0.15) 11/11/20 13:50 Arterial Blood Glucose 109 mg/dL (65-95) H 10/13/20 07:18 Arterial Blood Ionized Calcium 4.6 mg/dL (4.6-5.3) 10/13/20 07:18 Urine Color Kelsey (Yellow) 12/10/20 09:25 Urine Turbidity Cloudy (Clear) 12/10/20 09:25 Urine pH 7.0 (5.0-7.0) 12/10/20 09:25 Ur Specific [place] 1.027 (1.003-1.030) 12/10/20 09:25 Urine Protein 100 mg/dl mg/dL (Negative) 12/10/20 09:25 Urine Glucose (UA) Neg mg/dL (Negative) 12/10/20 09:25 Urine Ketones Neg mg/dL (Negative) 12/10/20 09:25 Urine Blood Sm (Negative) 12/10/20 09:25 Urine Nitrite Neg (Negative) 12/10/20 09:25 Urine Bilirubin Neg (Negative) 12/10/20 09:25 Urine Urobilinogen 4.0 mg/dL (<2.0) 12/10/20 09:25 Ur Leukocyte Esterase Mod (Negative) 12/10/20 09:25 Urine WBC (Auto) 50.0 /HPF (0.0-6.0) H 12/10/20 09:25 Urine RBC (Auto) 27.0 /HPF (0.0-6.0) 12/10/20 09:25 U Epithel Cells (Auto) 8.0 /HPF (0-13.0) 12/10/20 09:25 Urine Bacteria (Auto) 4+ /HPF (Negative) 11/11/20 13:50 Urine WBC Clumps 3+ /HPF 11/11/20 13:50 Calcium Oxalate Crystal Few 11/11/20 13:50 Urine Mucus Few /HPF 11/11/20 13:50 Urine Yeast (Budding) 2+ /HPF 12/10/20 09:25 Vancomycin Trough 12.6 ug/mL (5.0-20.0) 10/21/20 13:54 Random Vancomycin 10.7 ug/mL (0-40.0) 10/16/20 13:09 Phenytoin 5.7 ug/mL (10.0-20.0) L 10/13/20 07:00 C. difficile Tox (PCR) Positive (Negative) 10/16/20 10:22 Coronavirus (PCR) Negative (Negative) 10/08/20 14:15 Blood Type O POSITIVE 10/02/20 12:50 Antibody Screen Negative 10/02/20 12:50 Crossmatch See Detail 10/02/20 12:50 - Diagnostic Impressions Diagnostic Impressions: Echocardiogram 10/03/20 13:42 Transthoracic Echocardiogram Indication: S/P Cardiac Arrest R/O Cardiomyopathy BP: 133/71 Conclusions *Global left ventricular systolic function is normal. *The estimated ejection fraction is 60-65%. *There is trace of mitral regurgitation. *The right 0heart chambers are both slightly dilated. *There is mild tricuspid regurgitation. *There is mild-moderate pulmonary hypertension. *The right ventricular systolic pressure is calculated at 44 mmHg. *The study quality is technically difficult. Findings Procedure Info: The study quality is technically difficult. The study is technically limited due to patient body habitus. The study was technically limited due to the patient's inability to lay in the left lateral decubitus position. Left Ventricle: The left ventricular chamber size is normal. There is no left ventricular hypertrophy. Global left ventricular systolic function is normal. The estimated ejection fraction is 60-65%. Left Atrium: The left atrial chamber size is normal. Right Ventricle: The right ventricle is slightly dilated. Right Atrium: The right atrium is mildly dilated. Aortic Valve: The aortic valve leaflets are mildly thickened. There is no evidence of aortic regurgitation. There is no evidence of aortic stenosis. Mitral Valve: The mitral valve leaflets are mildly thickened. There is trace of mitral regurgitation. There is no evidence of mitral stenosis. Tricuspid Valve: There is mild tricuspid regurgitation. The right ventricular systolic pressure is calculated at 44 mmHg. There is evidence of mild pulmonary hypertension. Pulmonic Valve: There is trace pulmonic regurgitation. Pericardium: There is no pericardial effusion. Aorta: There is no dilatation of the ascending aorta. There is no dilatation of the aortic root. Venous: The inferior vena cava is dilated. Measurements Chambers 2D Name Value Normal Range IVSd (2D) 1 cm (0.6 - 1.1) LVPWd (2D) 1.01 cm (0.6 - 1.1) LVIDd (2D) 4.58 cm (3.7 - 5.6) LVIDs (2D) 3.17 cm (2 - 3.8) LV FS (2D) 30.93 % - EF Teichholz (2D) 58.66 % - Ao root diameter (2D) 2.94 cm (2 - 3.7) Volumes/Mass Name Value Normal Range LA ESV SP 4CH (A/L) 72.82 ml - LA ESV SP 2CH (A/L) 66.86 ml - LA ESV BP (A/L) 74.49 ml - LA ESV SP 4CH (MOD) 71.03 ml - LA ESV SP 2CH (MOD) 64.3 ml - LV EDV SP 4CH (MOD) 98.82 ml - LV ESV SP 4CH (MOD) 24.8 ml - EF SP 4CH (MOD) 74.9 % - LV EDV SP 2CH (MOD) 86.1 ml - LV ESV SP 2CH (MOD) 36.93 ml - EF SP 2CH (MOD) 57.11 % - LV EDV BP 94.4 ml - LV ESV BP 32.66 ml - BP EF (MOD) 65.4 % - Diastolic/Systolic Function Name Value Normal Range MV E-wave Vmax 1.04 m/sec - MV deceleration time 160.46 msec - MV A-wave Vmax 0.92 m/sec - MV E:A ratio 1.14 ratio - Aortic Valve Name Value Normal Range AV Vmax 2.12 m/sec - AV VTI 22.37 cm - AV peak gradient 17.95 mmHg - AV mean gradient 7.29 mmHg - LVOT diameter 2.01 cm - LVOT Vmax 1.8 m/sec - LVOT VTI 27.17 cm - LVOT peak gradient 12.91 mmHg - LVOT mean gradient 6.83 mmHg - SV LVOT 86.42 ml - ANITA (continuity Vmax) 2.7 cm2 - ANITA (continuity VTI) 3.86 cm2 - Ascending Ao 3.18 cm - Tricuspid Valve Name Value Normal Range TV E-wave Vmax 0.88 m/sec - TR Vmax 3.01 m/sec - TR peak gradient 36.27 mmHg - RAP 8 mmHg - RVSP 44 mmHg - IVC diameter 2.65 cm (1.2 - 2.3) Pulmonic Valve/Qp:Qs Name Value Normal Range PV Vmax 1.22 m/sec - PV peak gradient 5.91 mmHg - RVOT Vmax 0.87 m/sec - RVOT VTI 13.32 cm - RVOT peak gradient 3 mmHg - PV acceleration time 110.37 msec - [place]/IV: Voiding Method External Female Catheter IV Catheter Type [Right Foot] INT / Saline Lock IV Catheter Type [Left Forearm Peripheral IV ] IV Catheter Type [Left Wrist] INT / Saline Lock IV Catheter Type [Right Hand] INT / Saline Lock IV Catheter Type [Right INT / Saline Lock Antecubital] IV Catheter Type [Right Upper Mid-line arm] IV Catheter Type [Left Triple Lumen Cath Internal Jugular] IV Catheter Type [Left Hand] Peripheral IV IV Catheter Type [Left Peripheral IV Antecubital] Active Medications - Current Medications Current Medications: Generic Name Dose Route Start Last Admin Trade Name Freq PRN Reason Stop Dose Admin Acetaminophen 650 mg 10/05/20 16:34 12/19/20 21:38 Acetaminophen 325 Mg/10.15 Ml Oral Liqd Unit Dose FEEDTUBE 650 mg Q6H PRN Administration Non Cardiac Pain or Temp>100.5 Albuterol 2.5 mg 11/05/20 13:03 11/06/20 13:04 Albuterol 2.5 Mg/3 Ml Nebu IH 2.5 mg Q4HRT PRN Administration Shortness Of Breath Lipase/Protease/Amylase 1 each 10/05/20 11:09 Lipase 10,500/Protease 25,000/Amylase 43,750 (Units) Dr Barakat FEEDTUBE PRN PRN For Clogged Feeding Tube Enoxaparin Sodium 40 mg 10/22/20 10:00 12/20/20 09:18 Enoxaparin 40 Mg/0.4 Ml Inj SUB-Q 40 mg DAILY ERINN Administration Protocol Famotidine 20 mg 10/07/20 10:00 12/20/20 09:18 Famotidine 20 Mg Tab PO 20 mg BID ERINN Administration Furosemide 40 mg 10/17/20 10:00 12/20/20 09:18 Furosemide 40 Mg Tab PO 40 mg QDAY ERINN Administration Hydralazine HCl 20 mg 10/07/20 11:49 10/17/20 07:20 Hydralazine 20 Mg/1 Ml Inj IV 20 mg Q6H PRN Administration SBP >170 Dextrose 1,000 mls @ 42 mls/hr 12/15/20 11:00 12/19/20 21:37 D5w IV 42 mls/hr DIRECT ERINN Administration Simple Syrup 15 ml 12/21/20 11:09 Simple Syrup 15 Ml FEEDTUBE PRN PRN Hypoglycemia Simple Syrup 30 ml 10/05/20 11:09 Simple Syrup 15 Ml FEEDTUBE PRN PRN Hypoglycemia Sodium Bicarbonate 325 mg 10/05/20 11:09 12/16/20 08:19 Sodium Bicarbonate 325 Mg Tab FEEDTUBE 325 mg PRN PRN Administration For Clogged Feeding Tube Nutrition/Malnutrition Assess - Dietary Evaluation Nutrition/Malnutrition Findings: Nutrition Notes Start: 10/04/20 11:13 Freq: Status: Active Protocol: Document 12/17/20 12:16 AL (Rec: 12/17/20 12:20 AL [id number]) Co-Sign 12/17/20 12:16 LP Nutrition Notes Initial or Follow up Reassessment Current Diagnosis Respiratory Failure Other Pertinent Diagnosis C-Diff, Cardiac arrest, s/p c- section and supracervical hysterectomy, Brain Current Diet Jevity 1.2 at 60 mL/hr Labs/Tests 12/16 Na 156 Pertinent Medications Lasix D5 at 42 ml/hr Height 5 ft 8 in Weight 97.4 kg [place] Body Weight (kg) 63.63 BMI 32.6 Weight Status Obese Subjective/Other Information FU for TF tolerance. TF is running at 60 ml/hr (goal rate ). Pt still hypernatremic. Flush changed to 250 ml q4h in pt order to treat hypernatremia. RN made aware Percent of energy/protein needs met: 81%/100% Burn Absent Trauma Absent GI Symptoms None Food Allergy Yes Current % PO Negligible Minimum of two criteria Yes Interpretation of Weight Loss (severe) >2% in 1 week Fluid Accumulation Mild (non-severe) #2 Nutrition Diagnosis Malnutrition Diagnosis Progress(for reassessment Continues documentation) #1 Nutrition Diagnosis Inadequate oral intake Diagnosis Progress(for reassessment Continues documentation) Is patient on ventilator? No Is Patient Ambulatory and/or Out of Bed No REE-([facility]-confined to bed) 2080.908 Kcal/Kg value to use for calculation 17 Approximate Energy Requirements Using 1656 kcal/Kg Calculation Used for Recommendations Kcal/kg Additional Notes PRO needs: 65-81 (0.8-1 g/kg AdBW 81kg) Fluid needs: 1 mL/kcal or per MD Nutrition Intervention Change Diet Order: Continue TF Nutrition Support: Jevity 1.2 at 60ml/hr. Flush 100ml q4h. Flush 250 ml q4h for Hypernatremia. Once hypernatremia is resolved, flush 100 q4h. Kcal 1,728 Protein (gm) 80 Fluid (mL) 1,162 Goal #1 TF tolerance Goal #2 Meet at least 75% of energy and protein needs Anticipated Discharge Needs: Unable to determine at this time Follow-Up By: 12/21/20 Additional Comments FU for stable TF and hypernatremia
[2020-12-20] MEDS: ACETAMINOPHEN 325 MG/10.15 ML ORAL LIQD UNIT DOSE FEEDTUBE PRN (19:42)
[2020-12-20] MEDS: DEXTROSE 5% IN WATER 1,000 ML IV SCH (19:43)
[2020-12-21] MEDS: ACETAMINOPHEN 325 MG/10.15 ML ORAL LIQD UNIT DOSE FEEDTUBE PRN (06:06)
[2020-12-21] MEDS ORDERED: SODIUM CHLORIDE 0.9% 1000 ML 1,000 ML IV ONE (09:00)
[2020-12-21] MEDS: FUROSEMIDE 40 MG TAB PO SCH (09:24)
[2020-12-21] MEDS: FAMOTIDINE 20 MG TAB PO SCH ×2 (09:24→21:31)
[2020-12-21] MEDS: ENOXAPARIN 40 MG/0.4 ML INJ SUB-Q SCH (09:25)
--- NOTE | 2020-12-21 12:18 | Progress Note ---
Assessment and Plan Assessment and plan: Eclampsia/HELLP Syndrome, ADOLPH, DIC; s/p , s/p supracervical hyst 30 year old -Citizen Of [place] female CHE 10/25/20 at 36w5d who presents with seizures in triage on 10/02/20. Pt was not able to provide history but per pt's , she presented to the hospital to return a 24 hour urine specimen for analysis. She then suddenly reported that she did not feel good. She was taken to labor and delivery and shortly after arrival, she began seizing. During this time, a code met was called because the patient became hypoxic. She was then noted to be without a pulse. Chest compressions were started immediately, and the patient was emergently taken to the operating room for delivery of the fetus. Off note, This patient has had care at [facility] with comanagement by [facility] since 11 wks complicated by ADHD, morbid obesity, generalized anxiety disorder, panic attacks, chronic narcotic use, fibromyalgia, GERD, Irritable Bowel Syndrome, Migraines, h/o endometrial ablation and ovarian vein embolization, genital herpes, insomnia, LGA fetus, nausea and vomiting, polyhydramnios, quad screen positive for Down's Syndrome, and previous x 3. She is GBS negative. -- Sepsis with presumed Pneumonia Teated with iv abx, follow Cx -Completed cefepime course 5 days on 10/09/2020 -Check MRSA culture -Start vancomycin p.o. empirically for C. difficile total 10 days, given diarrhea and worsening leukocytosis, --Acute respiratory failure with hypoxia Patient extubated. --DIC (disseminated intravascular coagulation) vs HELLP syndrome Has anemia,thrombocytopenia and elevated liver enzymes Patient received multiple units of RBCs, FFP's, cryo at present not requiring transfusion. Has resolved H&H is 12 and 37. Hemoglobin hematocrit remained stable pending today. Hematology/oncology recommendations appreciated Continue to trend fibrinogen and INR Hemoglobin hematocrit remains stable today. Follow platelets transfuse as necessary. --Possible Eclampsia/HELLP Syndrome Patient presented with seizure-->hypoxia-->urgent C section-->hysterectomy for severe bleeding/DIC developed severe anemia-->received RBC, plt, FFP, cryo was on max pressors-->now off pressors still on vent, on sedation tracheostomy. 50% now. Hematology following --s/p Cardiac arrest x2 on admission and on 10/07 ACLS protocol followed by revival Echo showed preserved Ef --Shock-resolved now awaiting placement s/p pressor support Likely hypovolemic. on empirical antibiotics for possible sepsis. Continue to monitor blood pressure closely Trend H&H repeated H&H today stable not requiring transfusion. -- Hypernatremia --Lactic acidosis also resolving. As a result of poor organ perfusion and possible sepsis Continue IV hydration. Lactic acid is trending down Nephrology on board Overall prognosis extremely poor. --ADOLPH-resolved As a result of hypoperfusion and shock Continue IV hydration Cr stable, will follow up in the a.m. has been hemodynamically stable overall prognosis poor Even more quality of life extremely poor --DVT prophylaxis Patient presented with DIC No anticoagulants UTI -Was not present on admission -Diagnosed on 12/10/2020 Last day of Rocephin. 11:30: Pt brought to L&D triage for evaluation of possible labor. Pt accompanied by her spouse. Pt spouse poor historian; unable to obtain history- allergies at this time. Pt taken from registration to triage area via WC. Pt unresponsive, actively seizing with snorous respirations. die casting machine operator, Kassy, called and requesting assistance. 11:35: Multiple staff at bedside. Pt 02 sat 67% on nonrebreather, unable to read BP at this time. Yifan Theodore CRNA, at bedside for intubation and assistance with IV insertion. INT attempt by multiple RNs unsuccessful at this time. 11:42: Pt being bagged by KORIN, 02% 79%. No pulse palpated, compressions started at this time; bharati young called and Dr. Newberry preparing OR for emergent c/s. 11:44: Continued compressions on stretcher while transporting pt to OR 1. Pt being bagged with jaw thrust manuever in place by KORIN Stringer student. 11:45: Arrival to OR 1. Dr. Newberry and Dr. Portillo present for emergent c/s. Code team arrived for continued care. patient revived and c/s done Patient has been bleeding from C/s site followed by supracervical hysterectomy for severe bleeding Patient transfused multiple units of PRBC, Patient in DIC. Transferred to the ICU 10/03. Patient seen and examined at bedside this morning. Patient is nonresponsive and mechanically ventilated. On pressors. Labs reviewed-has leukocytosis, anemia, thrombocytopenia, ADOLPH and lactic acidosis. Started on IV antibiotics to cover possible sepsis secondary to DIC. Hematology oncology recommendations appreciated-needs additional cryoprecipitate and FFP. Monitor D-dimer, fibrinogen and frequent labs. Nephrology consulted for lactic acidosis and ADOLPH. 10/04. Remains mechanically ventilated. Kevin antibiotics. Labs shows improved acidosis - lactic acid 3.5. Hb drop noted. Getting transfused 2 units PRBCs. Platelet count is ~40k. Continue to monitor labs closely. Critical care team on board. 10/05; xray reviewed, concerning for multifocal infilrate, likely underlying Pneumonia, will add ID consult to assist with management of this critically ill patient, start tube feed, closely monitor renal system 10/06: Resumed care, remains on mechanical ventilation. No active bleeding, H&H stable. Continue to monitor CBC and BMP. Continue IV antibiotic for underlying pneumonia. Follow critical care and ID recommendation. 10/07: Remains on mechanical ventilation. No active bleeding, H&H stable. Critical care following, wean off ventilation as tolerated. 10/08: Patient had another cardiac arrest last night. Remains on mechanical ventilation, update family. Continue supportive care -poor prognosis 10/09: Called patient mother and discussed about patient care and management. Answered all question to best of my knowledge and family satisfaction. Patient remains on mechanical ventilation, cardiac arrest x2 so far. Critically sick, poor prognosis 10/10: remains on mechanical ventilation. h/h stable, no active bleeding. monitor CBC/BMP 10/11: WBC trended up with diarrhea, started on vancomycin po. remains on MV, off pressor, tolerating TF 10/12: remains on MV, off pressor, tolerating TF. called family for update but unable to reach, could not leave message as it was full. cont supportive care, wean off vent as tolerated. 10/13/2020; patient is on mechanical ventilation, tolerating tube feeding. Patient has labored breathing. Neuro was consulted and recommend MRI. Patient is on Precedex. Rectal tube in place. 10/14/2020; patient is on mechanical ventilation, Precedex. Patient had fever and blood culture ordered. Patient is on IV vancomycin per ID recommendation. Neuro consulted and recommend MRI. Continue to monitor. Prognosis is guarded. 10/15/2020; patient is on mechanical ventilation, Precedex. Patient had fever and blood culture ordered. Patient is on IV vancomycin per ID recommendation. Neuro consulted and recommend MRI. Continue to monitor. Prognosis is guarded. 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 12/06/20; anoxic brain injury. Awaiting placement. 12/07/2020; anoxic brain injury, awaiting placement. 12/09/2020; anoxic brain injury, awaiting placement. 12/10/2020; patient had episodes of fever overnight. CBC, BMP, blood culture, UA and chest x-ray ordered, will follow and manage accordingly. Urinalysis is suggestive of UTI and I put the patient on ceftriaxone, order urine culture. Chest x-ray is normal. 12/11/2020; patient is on ceftriaxone day 2 for UTI. We will continue to follow urine culture. 12/12/2020. Day #3 of Rocephin for UTI. We will continue for 2 more days while she is here. Present UTI. 12/13/2020. Day #4 of Rocephin for UTI. Patient remains on 50% with tracheostomy. Remains unresponsive with evidence of anoxic encephalopathy unable to make needs known. 12/14/2020. Day #5 of Rocephin for UTI completed today. Remains encephalopathic unable to make needs known. Remains on 50% unable to decrease oxygen via tracheostomy. Overall prognosis remains extremely poor. 3/2: Continue to monitor. Stop and monitor antibiotics at this time. Continue to wean oxygen as tolerated. Wean oxygen as tolerated. Case management working on placement. 3: Continue supportive care aspiration precautions. Awaiting placement discussion. Monitor fever curve. Prognosis remains poor no evidence of neurological recovery as of today 3/4: Continue supportive care, check labs and chest xray. Still monitor off antibiotics. Monitor Sodium level 12/18: Patient remains with intermittent low grade fever, reviewed EEG from [facility] again, consistent for Ischemic Hypoxic Encephalopathy, patient with decorticating posturing type presentation. Will discuss with customer complaint service supervisor to optimize diet so we can discontinue D5. CXR with no abnormality. Discussed extensively with the nursing staff at bedside CXR IMPRESSION: 1. No acute findings. 12/19: No clinical change 12/20: No clinical change, now off abx, monitor, discussed her medications with our pharmacist I believe that her posture and rigidity is likely from underlying anoxic encephalopathy. Continue to monitor and await placement decision. Continue aggressive suctioning. Plan discussed in detail with the nursing staff 12/21: Continue supportive care. Will give 500 cc bolus of fluid today to replace insensible losses. Tachycardia appears to be improving. Blood pressure precludes adjusting cardiac meds. Still awaiting placement from case management. Plan discussed in detail with the nursing staff History Interval history: Patient seen and examined, no clinical changes, no new fever this morning. Hospitalist Physical - Physical exam Narrative exam: VITAL SIGNS: Reviewed. GENERAL: No worsening respiratory distress HEAD: No signs of head trauma. Opens her eyes but no purposeful movement EYES: Pupils are equal. MOUTH: clear NECK: No adenopathy, no JVD. Trach CHEST: Rales posteriorly CARDIAC: normal S1 and S2, without murmurs, gallops, or rubs. ABDOMEN: PEG, Soft, non tender and non distended. surgical wound in tact, No rebound or guarding, and no masses palpated. Bowel Sounds normal. MUSCULOSKELETAL: Generalized anasacar. Decortication posture, rigid NEUROLOGIC EXAM: AWAKE BUT NOT RESPONSIVE SKIN: No obvious lesions - Constitutional Vitals: Temp Pulse Resp BP Pulse Ox 99.0 F 108 H 14 129/75 100 12/21/20 03:56 12/21/20 08:00 12/21/20 08:00 12/21/20 08:00 12/21/20 08:00 General appearance: Present: no acute distress, other (Patient does move when attempts to clean her tracheostomy and change her diaper otherwise no intel ligible words.) HEART Score - HEART Score Age: < 45 Risk factors: 1-2 risk factors - Critical Actions Critical Actions: >7 pts:50-65% risk of adverse cardiac event. Early invasive measures Results - Labs CBC & Chem 7: 12/18/20 04:57 12/18/20 04:57 Labs: Laboratory Last Values WBC 8.6 K/mm3 (4.5-11.0) 12/18/20 04:57 RBC 5.16 M/mm3 (3.65-5.03) H 12/18/20 04:57 Hgb 13.0 gm/dl (10.1-14.3) 12/18/20 04:57 Hgb Comment See scanned result 10/04/20 Unknown Hct 41.6 % (30.3-42.9) 12/18/20 04:57 MCV 81 fl (79-97) 12/18/20 04:57 MCH 25 pg (28-32) L 12/18/20 04:57 MCHC 31 % (30-34) 12/18/20 04:57 RDW 14.5 % (13.2-15.2) 12/18/20 04:57 Plt Count 258 K/mm3 (140-440) 12/18/20 04:57 Lymph % (Auto) 24.1 % (13.4-35.0) 12/14/20 10:32 [place] % (Auto) 7.8 % (0.0-7.3) H 12/14/20 10:32 Eos % (Auto) 1.5 % (0.0-4.3) 12/14/20 10:32 Baso % (Auto) 0.3 % (0.0-1.8) 12/14/20 10:32 Lymph # (Auto) 2.5 K/mm3 (1.2-5.4) 12/14/20 10:32 [place] # (Auto) 0.8 K/mm3 (0.0-0.8) 12/14/20 10:32 Eos # (Auto) 0.2 K/mm3 (0.0-0.4) 12/14/20 10:32 Baso # (Auto) 0.0 K/mm3 (0.0-0.1) 12/14/20 10:32 Add Manual Diff Complete 12/10/20 09:37 Total Counted 100 12/10/20 09:37 Seg Neutrophils % 66.3 % (40.0-70.0) 12/14/20 10:32 Seg Neuts % (Manual) 81.0 % (40.0-70.0) H 12/10/20 09:37 Band Neutrophils % 2.0 % 10/15/20 05:50 Lymphocytes % (Manual) 17.0 % (13.4-35.0) 12/10/20 09:37 Reactive Lymphs % (Man) 1.0 % 10/02/20 12:18 Monocytes % (Manual) 2.0 % (0.0-7.3) 12/10/20 09:37 Eosinophils % (Manual) 1.0 % (0.0-4.3) 10/29/20 07:56 Myelocytes % 2.0 % 10/02/20 13:05 Metamyelocytes % 1.0 % 10/14/20 04:00 Nucleated RBC % Not Reportable 12/10/20 09:37 Seg Neutrophils # 6.8 K/mm3 (1.8-7.7) 12/14/20 10:32 Seg Neutrophils # Man 10.1 K/mm3 (1.8-7.7) H 12/10/20 09:37 Band Neutrophils # 0.0 K/mm3 12/10/20 09:37 Lymphocytes # (Manual) 2.1 K/mm3 (1.2-5.4) 12/10/20 09:37 Abs React Lymphs (Man) 0.0 K/mm3 12/10/20 09:37 Monocytes # (Manual) 0.3 K/mm3 (0.0-0.8) 12/10/20 09:37 Eosinophils # (Manual) 0.0 K/mm3 (0.0-0.4) 12/10/20 09:37 Basophils # (Manual) 0.0 K/mm3 (0.0-0.1) 12/10/20 09:37 Metamyelocytes # 0.0 K/mm3 12/10/20 09:37 Myelocytes # 0.0 K/mm3 12/10/20 09:37 Promyelocytes # 0.0 K/mm3 12/10/20 09:37 Blast Cells # 0.0 K/mm3 12/10/20 09:37 WBC Morphology Not Reportable 12/10/20 09:37 Hypersegmented Neuts Not Reportable 12/10/20 09:37 Hyposegmented Neuts Not Reportable 12/10/20 09:37 Hypogranular Neuts Not Reportable 12/10/20 09:37 Smudge Cells Not Reportable 12/10/20 09:37 Toxic Granulation Not Reportable 12/10/20 09:37 Toxic Vacuolation Not Reportable 12/10/20 09:37 Dohle Bodies Not Reportable 12/10/20 09:37 Pelger-Huet Anomaly Not Reportable 12/10/20 09:37 Ester Rods Not Reportable 12/10/20 09:37 Platelet Estimate Consistent w auto 12/10/20 09:37 Clumped Platelets Not Reportable 12/10/20 09:37 Plt Clumps, EDTA Not Reportable 12/10/20 09:37 Large Platelets Not Reportable 12/10/20 09:37 Giant Platelets Not Reportable 12/10/20 09:37 Platelet Satelliting Not Reportable 12/10/20 09:37 Plt Morphology Comment Not Reportable 12/10/20 09:37 RBC Morphology Normal 12/10/20 09:37 Dimorphic RBCs Not Reportable 12/10/20 09:37 Polychromasia Not Reportable 12/10/20 09:37 Hypochromasia 1+ 12/10/20 09:37 Poikilocytosis Not Reportable 12/10/20 09:37 Anisocytosis Not Reportable 12/10/20 09:37 Microcytosis Not Reportable 12/10/20 09:37 Macrocytosis Not Reportable 12/10/20 09:37 Spherocytes Not Reportable 12/10/20 09:37 Pappenheimer Bodies Not Reportable 12/10/20 09:37 Sickle Cells Not Reportable 12/10/20 09:37 Target Cells Not Reportable 12/10/20 09:37 Tear Drop Cells Not Reportable 12/10/20 09:37 Ovalocytes Not Reportable 12/10/20 09:37 Stomatocytes Few 10/14/20 04:00 Helmet Cells Not Reportable 12/10/20 09:37 [place] Bodies Not Reportable 12/10/20 09:37 [place] Rings Not Reportable 12/10/20 09:37 [place] Cells Not Reportable 12/10/20 09:37 Bite Cells Not Reportable 12/10/20 09:37 Crenated Cell Not Reportable 12/10/20 09:37 Elliptocytes Not Reportable 12/10/20 09:37 Acanthocytes (Spur) Not Reportable 12/10/20 09:37 Rouleaux Not Reportable 12/10/20 09:37 Hemoglobin C Crystals Not Reportable 12/10/20 09:37 Schistocytes Not Reportable 12/10/20 09:37 Malaria parasites Not Reportable 12/10/20 09:37 Sickle Cell Solubility See scanned result 10/04/20 Unknown Hemoglobin A See scanned result 10/04/20 Unknown Hemoglobin A2 See scanned result 10/04/20 Unknown Hemoglobin A2 Prime See scanned result 10/04/20 Unknown Hemoglobin C See scanned result 10/04/20 Unknown Hemoglobin D See scanned result 10/04/20 Unknown Hemoglobin E See scanned result 10/04/20 Unknown Hgb F Diffential Stain See scanned result 10/04/20 Unknown Hemoglobin F Quant See scanned result 10/04/20 Unknown Hemoglobin G See scanned result 10/04/20 Unknown Hemoglobin S See scanned result 10/04/20 Unknown Hemoglobin [place] See scanned result 10/04/20 Unknown Hemoglobin [place] See scanned result 10/04/20 Unknown Hemoglobin Analilia See scanned result 10/04/20 Unknown Variant Hemoglobin See scanned result 10/04/20 Unknown Abnorm Hgb IEF Confirm See scanned result 10/04/20 Unknown Hemoglobin Interpret See scanned result 10/04/20 Unknown Hemoglobinopathy Note See scanned result 10/04/20 Unknown Sharad Bodies Not Reportable 12/10/20 09:37 Hem Pathologist Commnt No 12/10/20 09:37 PT 13.6 Sec. (12.2-14.9) 10/21/20 13:54 INR 1.06 (0.87-1.13) 10/21/20 13:54 APTT 31.6 Sec. (24.2-36.6) 10/03/20 00:40 Fibrinogen 336 mg/dl (211-480) 10/04/20 10:00 D-Dimer 1974.47 ng/mlDDU (0-234) H 11/11/20 13:50 ABG pH 7.459 pH Units (7.350-7.450) H 10/26/20 10:30 POC ABG pCO2 20.7 mmHg (32.0-48.0) L 10/13/20 07:18 ABG pCO2 32.4 mm Hg 10/26/20 10:30 POC ABG pO2 137.9 mmHg (83-108) H 10/13/20 07:18 ABG pO2 112.2 mm Hg (80.0-90.0) H 10/26/20 10:30 POC ABG HCO3 14.8 10/13/20 07:18 ABG HCO3 22.5 mmol/L (20.0-26.0) 10/26/20 10:30 ABG O2 Saturation 98.2 % (95.0-99.0) 10/26/20 10:30 ABG O2 Content 18.5 (0.0-44) 10/26/20 10:30 POC ABG Base Excess -6.9 10/13/20 07:18 ABG Base Excess -0.6 mmol/L (-2.0-3.0) 10/26/20 10:30 ABG Hemoglobin 13.5 gm/dl (12.0-16.0) 10/26/20 10:30 ABG Oxyhemoglobin 98.3 (94-98) H 10/13/20 07:18 ABG Carboxyhemoglobin 1.3 % (0.0-5.0) 10/26/20 10:30 ABG Methemoglobin 0.5 % (0.0-1.5) 10/26/20 10:30 ABG Sodium 135.9 mmol/L (136.0-145.0) L 10/13/20 07:18 ABG Potassium 3.7 mmol/L (3.40-4.50) 10/13/20 07:18 ABG Chloride 111.0 mmol/L (98-107) H 10/13/20 07:18 ABG Glucose 109 mg/dL (65-95) H 10/13/20 07:18 VBG pH 6.949 (7.320-7.420) L* 10/02/20 Unknown Oxyhemoglobin 96.5 % (95.0-99.0) 10/26/20 10:30 Carboxyhemoglobin 0.3 (0.5-1.5) L 10/13/20 07:18 FiO2 25 % 10/26/20 10:30 Sodium 150 mmol/L (137-145) H 12/18/20 04:57 Potassium 4.2 mmol/L (3.6-5.0) 12/18/20 04:57 Chloride 110.8 mmol/L (98-107) H 12/18/20 04:57 Carbon Dioxide 28 mmol/L (22-30) 12/18/20 04:57 Anion Gap 15 mmol/L 12/18/20 04:57 BUN 20 mg/dL (7-17) H 12/18/20 04:57 Creatinine 0.7 mg/dL (0.6-1.2) 12/18/20 04:57 Estimated GFR > 60 ml/min 12/18/20 04:57 BUN/Creatinine Ratio 29 % 12/18/20 04:57 Glucose 92 mg/dL (65-100) 12/18/20 04:57 POC Glucose 97 mg/dL (70-105) 12/21/20 05:45 Random Insulin 43.2 uIU/mL (<=19.6) H 11/02/20 19:19 Proinsulin See scanned result 11/02/20 19:19 C-Peptide 6.23 ng/mL (0.80-3.85) H 11/02/20 19:19 Lactic Acid 1.90 mmol/L (0.7-2.0) 10/04/20 22:00 Uric Acid 7.5 mg/dL (3.5-7.6) 10/02/20 13:05 Calcium 9.7 mg/dL (8.4-10.2) 12/18/20 04:57 Ionized Calcium 4.4 mg/dL (4.8-5.6) L 10/07/20 21:00 Phosphorus 4.60 mg/dL (2.5-4.5) H 11/13/20 10:05 Magnesium 2.10 mg/dL (1.7-2.3) 11/13/20 10:05 Total Bilirubin 0.50 mg/dL (0.1-1.2) 12/14/20 09:06 AST 63 units/L (5-40) H 12/14/20 09:06 ALT 42 units/L (7-56) 12/14/20 09:06 Alkaline Phosphatase 107 units/L (35-129) 12/14/20 09:06 Lactate Dehydrogenase 769 units/L (91-180) H 10/02/20 13:05 C-Reactive Protein 0.70 mg/dL (0.00-1.30) 11/11/20 13:50 NT-Pro-B Natriuret Pep 2788 pg/mL (0-450) H 10/04/20 10:00 Total Protein 8.3 g/dL (6.3-8.2) H 12/14/20 09:06 Albumin 3.8 g/dL (3.9-5) L 12/14/20 09:06 Albumin/Globulin Ratio 0.8 % 12/14/20 09:06 Procalcitonin < 0.05 ng/mL (<0.15) 11/11/20 13:50 Arterial Blood Glucose 109 mg/dL (65-95) H 10/13/20 07:18 Arterial Blood Ionized Calcium 4.6 mg/dL (4.6-5.3) 10/13/20 07:18 Urine Color Kelsey (Yellow) 12/10/20 09:25 Urine Turbidity Cloudy (Clear) 12/10/20 09:25 Urine pH 7.0 (5.0-7.0) 12/10/20 09:25 Ur Specific [place] 1.027 (1.003-1.030) 12/10/20 09:25 Urine Protein 100 mg/dl mg/dL (Negative) 12/10/20 09:25 Urine Glucose (UA) Neg mg/dL (Negative) 12/10/20 09:25 Urine Ketones Neg mg/dL (Negative) 12/10/20 09:25 Urine Blood Sm (Negative) 12/10/20 09:25 Urine Nitrite Neg (Negative) 12/10/20 09:25 Urine Bilirubin Neg (Negative) 12/10/20 09:25 Urine Urobilinogen 4.0 mg/dL (<2.0) 12/10/20 09:25 Ur Leukocyte Esterase Mod (Negative) 12/10/20 09:25 Urine WBC (Auto) 50.0 /HPF (0.0-6.0) H 12/10/20 09:25 Urine RBC (Auto) 27.0 /HPF (0.0-6.0) 12/10/20 09:25 U Epithel Cells (Auto) 8.0 /HPF (0-13.0) 12/10/20 09:25 Urine Bacteria (Auto) 4+ /HPF (Negative) 11/11/20 13:50 Urine WBC Clumps 3+ /HPF 11/11/20 13:50 Calcium Oxalate Crystal Few 11/11/20 13:50 Urine Mucus Few /HPF 11/11/20 13:50 Urine Yeast (Budding) 2+ /HPF 12/10/20 09:25 Vancomycin Trough 12.6 ug/mL (5.0-20.0) 10/21/20 13:54 Random Vancomycin 10.7 ug/mL (0-40.0) 10/16/20 13:09 Phenytoin 5.7 ug/mL (10.0-20.0) L 12/29/20 07:00 C. difficile Tox (PCR) Positive (Negative) 10/16/20 10:22 Coronavirus (PCR) Negative (Negative) 10/08/20 14:15 Blood Type O POSITIVE 10/02/20 12:50 Antibody Screen Negative 10/02/20 12:50 Crossmatch See Detail 10/02/20 12:50 - Diagnostic Impressions Diagnostic Impressions: Echocardiogram 10/03/20 13:42 Transthoracic Echocardiogram Indication: S/P Cardiac Arrest R/O Cardiomyopathy BP: 133/71 Conclusions *Global left ventricular systolic function is normal. *The estimated ejection fraction is 60-65%. *There is trace of mitral regurgitation. *The right 0heart chambers are both slightly dilated. *There is mild tricuspid regurgitation. *There is mild-moderate pulmonary hypertension. *The right ventricular systolic pressure is calculated at 44 mmHg. *The study quality is technically difficult. Findings Procedure Info: The study quality is technically difficult. The study is technically limited due to patient body habitus. The study was technically limited due to the patient's inability to lay in the left lateral decubitus position. Left Ventricle: The left ventricular chamber size is normal. There is no left ventricular hypertrophy. Global left ventricular systolic function is normal. The estimated ejection fraction is 60-65%. Left Atrium: The left atrial chamber size is normal. Right Ventricle: The right ventricle is slightly dilated. Right Atrium: The right atrium is mildly dilated. Aortic Valve: The aortic valve leaflets are mildly thickened. There is no evidence of aortic regurgitation. There is no evidence of aortic stenosis. Mitral Valve: The mitral valve leaflets are mildly thickened. There is trace of mitral regurgitation. There is no evidence of mitral stenosis. Tricuspid Valve: There is mild tricuspid regurgitation. The right ventricular systolic pressure is calculated at 44 mmHg. There is evidence of mild pulmonary hypertension. Pulmonic Valve: There is trace pulmonic regurgitation. Pericardium: There is no pericardial effusion. Aorta: There is no dilatation of the ascending aorta. There is no dilatation of the aortic root. Venous: The inferior vena cava is dilated. Measurements Chambers 2D Name Value Normal Range IVSd (2D) 1 cm (0.6 - 1.1) LVPWd (2D) 1.01 cm (0.6 - 1.1) LVIDd (2D) 4.58 cm (3.7 - 5.6) LVIDs (2D) 3.17 cm (2 - 3.8) LV FS (2D) 30.93 % - EF Teichholz (2D) 58.66 % - Ao root diameter (2D) 2.94 cm (2 - 3.7) Volumes/Mass Name Value Normal Range LA ESV SP 4CH (A/L) 72.82 ml - LA ESV SP 2CH (A/L) 66.86 ml - LA ESV BP (A/L) 74.49 ml - LA ESV SP 4CH (MOD) 71.03 ml - LA ESV SP 2CH (MOD) 64.3 ml - LV EDV SP 4CH (MOD) 98.82 ml - LV ESV SP 4CH (MOD) 24.8 ml - EF SP 4CH (MOD) 74.9 % - LV EDV SP 2CH (MOD) 86.1 ml - LV ESV SP 2CH (MOD) 36.93 ml - EF SP 2CH (MOD) 57.11 % - LV EDV BP 94.4 ml - LV ESV BP 32.66 ml - BP EF (MOD) 65.4 % - Diastolic/Systolic Function Name Value Normal Range MV E-wave Vmax 1.04 m/sec - MV deceleration time 160.46 msec - MV A-wave Vmax 0.92 m/sec - MV E:A ratio 1.14 ratio - Aortic Valve Name Value Normal Range AV Vmax 2.12 m/sec - AV VTI 22.37 cm - AV peak gradient 17.95 mmHg - AV mean gradient 7.29 mmHg - LVOT diameter 2.01 cm - LVOT Vmax 1.8 m/sec - LVOT VTI 27.17 cm - LVOT peak gradient 12.91 mmHg - LVOT mean gradient 6.83 mmHg - SV LVOT 86.42 ml - ANITA (continuity Vmax) 2.7 cm2 - ANITA (continuity VTI) 3.86 cm2 - Ascending Ao 3.18 cm - Tricuspid Valve Name Value Normal Range TV E-wave Vmax 0.88 m/sec - TR Vmax 3.01 m/sec - TR peak gradient 36.27 mmHg - RAP 8 mmHg - RVSP 44 mmHg - IVC diameter 2.65 cm (1.2 - 2.3) Pulmonic Valve/Qp:Qs Name Value Normal Range PV Vmax 1.22 m/sec - PV peak gradient 5.91 mmHg - RVOT Vmax 0.87 m/sec - RVOT VTI 13.32 cm - RVOT peak gradient 3 mmHg - PV acceleration time 110.37 msec - [place]/IV: Voiding Method External Female Catheter IV Catheter Type [Right Foot] INT / Saline Lock IV Catheter Type [Left Forearm Peripheral IV ] IV Catheter Type [Left Wrist] INT / Saline Lock IV Catheter Type [Right Hand] INT / Saline Lock IV Catheter Type [Right INT / Saline Lock Antecubital] IV Catheter Type [Right Upper Mid-line arm] IV Catheter Type [Left Triple Lumen Cath Internal Jugular] IV Catheter Type [Left Hand] Peripheral IV IV Catheter Type [Left Peripheral IV Antecubital] Active Medications - Current Medications Current Medications: Generic Name Dose Route Start Last Admin Trade Name Freq PRN Reason Stop Dose Admin Acetaminophen 650 mg 10/05/20 16:34 12/21/20 06:06 Acetaminophen 325 Mg/10.15 Ml Oral Liqd Unit Dose FEEDTUBE 650 mg Q6H PRN Administration Non Cardiac Pain or Temp>100.5 Albuterol 2.5 mg 11/05/20 13:03 11/06/20 13:04 Albuterol 2.5 Mg/3 Ml Nebu IH 2.5 mg Q4HRT PRN Administration Shortness Of Breath Lipase/Protease/Amylase 1 each 10/05/20 11:09 Lipase 10,500/Protease 25,000/Amylase 43,750 (Units) Dr Barakat FEEDTUBE PRN PRN For Clogged Feeding Tube Enoxaparin Sodium 40 mg 10/22/20 10:00 12/21/20 09:25 Enoxaparin 40 Mg/0.4 Ml Inj SUB-Q 40 mg DAILY ERINN Administration Protocol Famotidine 20 mg 10/07/20 10:00 12/21/20 09:24 Famotidine 20 Mg Tab PO 20 mg BID ERINN Administration Furosemide 40 mg 10/17/20 10:00 12/21/20 09:24 Furosemide 40 Mg Tab PO 40 mg QDAY ERINN Administration Hydralazine HCl 20 mg 10/07/20 11:49 10/17/20 07:20 Hydralazine 20 Mg/1 Ml Inj IV 20 mg Q6H PRN Administration SBP >170 Dextrose 1,000 mls @ 42 mls/hr 12/15/20 11:00 12/20/20 19:43 D5w IV 42 mls/hr DIRECT ERINN Administration Simple Syrup 15 ml 10/05/20 11:09 Simple Syrup 15 Ml FEEDTUBE PRN PRN Hypoglycemia Simple Syrup 30 ml 10/05/20 11:09 Simple Syrup 15 Ml FEEDTUBE PRN PRN Hypoglycemia Sodium Bicarbonate 325 mg 10/05/20 11:09 12/16/20 08:19 Sodium Bicarbonate 325 Mg Tab FEEDTUBE 325 mg PRN PRN Administration For Clogged Feeding Tube Nutrition/Malnutrition Assess - Dietary Evaluation Nutrition/Malnutrition Findings: Nutrition Notes Start: 10/04/20 11:13 Freq: Status: Active Protocol: Document 12/21/20 11:40 (Rec: 12/21/20 11:44 [id number]) Nutrition Notes Initial or Follow up Reassessment Current Diagnosis Respiratory Failure Other Pertinent Diagnosis C-Diff, Cardiac arrest, s/p c- section and supracervical hysterectomy, Brain Current Diet Jevity 1.2 at 60 mL/hr Labs/Tests 12/18: Na 150 BUN 20 Pertinent Medications Lasix Height 5 ft 8 in Weight 93.1 kg [place] Body Weight (kg) 63.63 BMI 31.1 Weight Status Obese Subjective/Other Information FU for TF tolerance. Pt with TF off, per RN, due to patients posistion. RN to restart when she turns pt again. Percent of energy/protein needs met: 0%/0% Burn Absent Trauma Absent GI Symptoms None Food Allergy Yes Current % PO Negligible Minimum of two criteria Yes Interpretation of Weight Loss (severe) >2% in 1 week Fluid Accumulation Mild (non-severe) #2 Nutrition Diagnosis Malnutrition Diagnosis Progress(for reassessment Continues documentation) #1 Nutrition Diagnosis Inadequate oral intake Diagnosis Progress(for reassessment Continues documentation) Is patient on ventilator? No Is Patient Ambulatory and/or Out of Bed No REE-([facility]-confined to bed) 2028.356 Kcal/Kg value to use for calculation 19 Approximate Energy Requirements Using 1769 kcal/Kg Calculation Used for Recommendations Kcal/kg Additional Notes PRO needs: 65-81 (0.8-1 g/kg AdBW 81kg) Fluid needs: 1 mL/kcal or per MD Nutrition Intervention Change Diet Order: Continue TF Nutrition Support: Jevity 1.2 at 60ml/hr. Flush 100ml q4h. Flush 250 ml q4h for Hypernatremia. Once hypernatremia is resolved, flush 100 q4h. Kcal 1,728 Protein (gm) 80 Fluid (mL) 1,162 Goal #1 TF tolerance Goal #2 Meet at least 75% of energy and protein needs via TF Anticipated Discharge Needs: Unable to determine at this time Follow-Up By: 12/25/20 Additional Comments FU for stable TF and Na labs
[2020-12-21] MEDS: DEXTROSE 5% IN WATER 1,000 ML IV SCH (17:00)
[2020-12-22] MEDS: FUROSEMIDE 40 MG TAB PO SCH (09:00)
[2020-12-22] MEDS: FAMOTIDINE 20 MG TAB PO SCH ×2 (09:00→21:47)
[2020-12-22] MEDS: ENOXAPARIN 40 MG/0.4 ML INJ SUB-Q SCH (09:07)
[2020-12-22 11:41] LABS: Alanine Aminotransferase 33 units/L (7-56); Albumin 3.8 g/dL (3.9-5); BUN/Creatinine Ratio 20; Blood Urea Nitrogen 10 mg/dL (7-17); Calcium 9.5 mg/dL (8.4-10.2); Hemolysis Index 36
[2020-12-22] MEDS: ACETAMINOPHEN 325 MG/10.15 ML ORAL LIQD UNIT DOSE FEEDTUBE PRN (12:36)
--- NOTE | 2020-12-22 13:28 | Progress Note ---
Assessment and Plan Assessment and plan: Eclampsia/HELLP Syndrome, ADOLPH, DIC; s/p , s/p supracervical hyst 30 year old -[place] female CHE 10/25/20 at 36w5d who presents with seizures in triage on 10/02/20. Pt was not able to provide history but per pt's , she presented to the hospital to return a 24 hour urine specimen for analysis. She then suddenly reported that she did not feel good. She was taken to labor and delivery and shortly after arrival, she began seizing. During this time, a code met was called because the patient became hypoxic. She was then noted to be without a pulse. Chest compressions were started immediately, and the patient was emergently taken to the operating room for delivery of the fetus. Off note, This patient has had care at [facility] with comanagement by [facility] since 11 wks complicated by ADHD, morbid obesity, generalized anxiety disorder, panic attacks, chronic narcotic use, fibromyalgia, GERD, Irritable Bowel Syndrome, Migraines, h/o endometrial ablation and ovarian vein embolization, genital herpes, insomnia, LGA fetus, nausea and vomiting, polyhydramnios, quad screen positive for Down's Syndrome, and previous x 3. She is GBS negative. -- Sepsis with presumed Pneumonia Teated with iv abx, follow Cx -Completed cefepime course 5 days on 10/09/2020 -Check MRSA culture -Start vancomycin p.o. empirically for C. difficile total 10 days, given diarrhea and worsening leukocytosis, --Acute respiratory failure with hypoxia Patient extubated. --DIC (disseminated intravascular coagulation) vs HELLP syndrome Has anemia,thrombocytopenia and elevated liver enzymes Patient received multiple units of RBCs, FFP's, cryo at present not requiring transfusion. Has resolved H&H is 12 and 37. Hemoglobin hematocrit remained stable pending today. Hematology/oncology recommendations appreciated Continue to trend fibrinogen and INR Hemoglobin hematocrit remains stable today. Follow platelets transfuse as necessary. --Possible Eclampsia/HELLP Syndrome Patient presented with seizure-->hypoxia-->urgent C section-->hysterectomy for severe bleeding/DIC developed severe anemia-->received RBC, plt, FFP, cryo was on max pressors-->now off pressors still on vent, on sedation tracheostomy. 50% now. Hematology following --s/p Cardiac arrest x2 on admission and on 10/07 ACLS protocol followed by revival Echo showed preserved Ef --Shock-resolved now awaiting placement s/p pressor support Likely hypovolemic. on empirical antibiotics for possible sepsis. Continue to monitor blood pressure closely Trend H&H repeated H&H today stable not requiring transfusion. -- Hypernatremia --Lactic acidosis also resolving. As a result of poor organ perfusion and possible sepsis Continue IV hydration. Lactic acid is trending down Nephrology on board Overall prognosis extremely poor. --ADOLPH-resolved As a result of hypoperfusion and shock Continue IV hydration Cr stable, will follow up in the a.m. has been hemodynamically stable overall prognosis poor Even more quality of life extremely poor --DVT prophylaxis Patient presented with DIC No anticoagulants UTI -Was not present on admission -Diagnosed on 12/10/2020 Last day of Rocephin. 11:30: Pt brought to L&D triage for evaluation of possible labor. Pt accompanied by her spouse. Pt spouse poor historian; unable to obtain history- allergies at this time. Pt taken from registration to triage area via WC. Pt unresponsive, actively seizing with snorous respirations. infusion rn, Kassy, called and requesting assistance. 11:35: Multiple staff at bedside. Pt 02 sat 67% on nonrebreather, unable to read BP at this time. Yifan Theodore CRNA, at bedside for intubation and assistance with IV insertion. INT attempt by multiple RNs unsuccessful at this time. 11:42: Pt being bagged by KORIN, 02% 79%. No pulse palpated, compressions started at this time; bharati young called and Dr. Newberry preparing OR for emergent c/s. 11:44: Continued compressions on stretcher while transporting pt to OR 1. Pt being bagged with jaw thrust manuever in place by KORIN Stringer student. 11:45: Arrival to OR 1. Dr. Newberry and Dr. Portillo present for emergent c/s. Code team arrived for continued care. patient revived and c/s done Patient has been bleeding from C/s site followed by supracervical hysterectomy for severe bleeding Patient transfused multiple units of PRBC, Patient in DIC. Transferred to the ICU 10/03. Patient seen and examined at bedside this morning. Patient is nonresponsive and mechanically ventilated. On pressors. Labs reviewed-has leukocytosis, anemia, thrombocytopenia, ADOLPH and lactic acidosis. Started on IV antibiotics to cover possible sepsis secondary to DIC. Hematology oncology recommendations appreciated-needs additional cryoprecipitate and FFP. Monitor D-dimer, fibrinogen and frequent labs. Nephrology consulted for lactic acidosis and ADOLPH. 10/04. Remains mechanically ventilated. Kevin antibiotics. Labs shows improved acidosis - lactic acid 3.5. Hb drop noted. Getting transfused 2 units PRBCs. Platelet count is ~40k. Continue to monitor labs closely. Critical care team on board. 10/05; xray reviewed, concerning for multifocal infilrate, likely underlying Pneumonia, will add ID consult to assist with management of this critically ill patient, start tube feed, closely monitor renal system 10/06: Resumed care, remains on mechanical ventilation. No active bleeding, H&H stable. Continue to monitor CBC and BMP. Continue IV antibiotic for underlying pneumonia. Follow critical care and ID recommendation. 10/07: Remains on mechanical ventilation. No active bleeding, H&H stable. Critical care following, wean off ventilation as tolerated. 10/08: Patient had another cardiac arrest last night. Remains on mechanical ventilation, update family. Continue supportive care -poor prognosis 10/09: Called patient mother and discussed about patient care and management. Answered all question to best of my knowledge and family satisfaction. Patient remains on mechanical ventilation, cardiac arrest x2 so far. Critically sick, poor prognosis 10/10: remains on mechanical ventilation. h/h stable, no active bleeding. monitor CBC/BMP 10/11: WBC trended up with diarrhea, started on vancomycin po. remains on MV, off pressor, tolerating TF 10/12: remains on MV, off pressor, tolerating TF. called family for update but unable to reach, could not leave message as it was full. cont supportive care, wean off vent as tolerated. 10/13/2020; patient is on mechanical ventilation, tolerating tube feeding. Patient has labored breathing. Neuro was consulted and recommend MRI. Patient is on Precedex. Rectal tube in place. 10/14/2020; patient is on mechanical ventilation, Precedex. Patient had fever and blood culture ordered. Patient is on IV vancomycin per ID recommendation. Neuro consulted and recommend MRI. Continue to monitor. Prognosis is guarded. 10/15/2020; patient is on mechanical ventilation, Precedex. Patient had fever and blood culture ordered. Patient is on IV vancomycin per ID recommendation. Neuro consulted and recommend MRI. Continue to monitor. Prognosis is guarded. 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 12/06/20; anoxic brain injury. Awaiting placement. 12/07/2020; anoxic brain injury, awaiting placement. 12/09/2020; anoxic brain injury, awaiting placement. 12/10/2020; patient had episodes of fever overnight. CBC, BMP, blood culture, UA and chest x-ray ordered, will follow and manage accordingly. Urinalysis is suggestive of UTI and I put the patient on ceftriaxone, order urine culture. Chest x-ray is normal. 12/11/2020; patient is on ceftriaxone day 2 for UTI. We will continue to follow urine culture. 12/12/2020. Day #3 of Rocephin for UTI. We will continue for 2 more days while she is here. Present UTI. 12/13/2020. Day #4 of Rocephin for UTI. Patient remains on 50% with tracheostomy. Remains unresponsive with evidence of anoxic encephalopathy unable to make needs known. 12/14/2020. Day #5 of Rocephin for UTI completed today. Remains encephalopathic unable to make needs known. Remains on 50% unable to decrease oxygen via tracheostomy. Overall prognosis remains extremely poor. 3/2: Continue to monitor. Stop and monitor antibiotics at this time. Continue to wean oxygen as tolerated. Wean oxygen as tolerated. Case management working on placement. 3: Continue supportive care aspiration precautions. Awaiting placement discussion. Monitor fever curve. Prognosis remains poor no evidence of neurological recovery as of today 3/4: Continue supportive care, check labs and chest xray. Still monitor off antibiotics. Monitor Sodium level 12/18: Patient remains with intermittent low grade fever, reviewed EEG from [facility] again, consistent for Ischemic Hypoxic Encephalopathy, patient with decorticating posturing type presentation. Will discuss with computer network specialist to optimize diet so we can discontinue D5. CXR with no abnormality. Discussed extensively with the nursing staff at bedside CXR IMPRESSION: 1. No acute findings. 12/19: No clinical change 12/20: No clinical change, now off abx, monitor, discussed her medications with our pharmacist I believe that her posture and rigidity is likely from underlying anoxic encephalopathy. Continue to monitor and await placement decision. Continue aggressive suctioning. Plan discussed in detail with the nursing staff 12/21: Continue supportive care. Will give 500 cc bolus of fluid today to replace insensible losses. Tachycardia appears to be improving. Blood pressure precludes adjusting cardiac meds. Still awaiting placement from case management. Plan discussed in detail with the nursing staff 12/22. Continue support supportive care. Tracheostomy and PEG in place. Remains nonresponsive. Awaiting placement. History Interval history: Trach in place Not responsive to calls Hospitalist Physical - Physical exam Narrative exam: VITAL SIGNS: Reviewed. GENERAL: Trach in place HEAD: No signs of head trauma. EYES: Pupils are equal. NECK: No adenopathy, no JVD. CHEST: Rales posteriorly CARDIAC: normal S1 and S2, without murmurs, gallops, or rubs. ABDOMEN: Soft, non tender and non distended. No rebound or guarding, and no masses palpated. Bowel Sounds normal MUSCULOSKELETAL: No edema NEUROLOGIC EXAM: Not responsive SKIN: No obvious lesions - Constitutional Vitals: Temp Pulse Resp BP Pulse Ox 100.2 F H 105 H 19 101/65 100 12/22/20 12:00 12/22/20 12:00 12/22/20 12:00 12/22/20 12:00 12/22/20 12:00 HEART Score - HEART Score Age: < 45 Risk factors: 1-2 risk factors - Critical Actions Critical Actions: >7 pts:50-65% risk of adverse cardiac event. Early invasive measures Results - Labs CBC & Chem 7: 12/18/20 04:57 12/22/20 11:03 Labs: Laboratory Last Values WBC 8.6 K/mm3 (4.5-11.0) 12/18/20 04:57 RBC 5.16 M/mm3 (3.65-5.03) H 12/18/20 04:57 Hgb 13.0 gm/dl (10.1-14.3) 12/18/20 04:57 Hgb Comment See scanned result 10/04/20 Unknown Hct 41.6 % (30.3-42.9) 12/18/20 04:57 MCV 81 fl (79-97) 12/18/20 04:57 MCH 25 pg (28-32) L 12/18/20 04:57 MCHC 31 % (30-34) 12/18/20 04:57 RDW 14.5 % (13.2-15.2) 12/18/20 04:57 Plt Count 258 K/mm3 (140-440) 12/18/20 04:57 Lymph % (Auto) 24.1 % (13.4-35.0) 12/14/20 10:32 Parker % (Auto) 7.8 % (0.0-7.3) H 12/14/20 10:32 Eos % (Auto) 1.5 % (0.0-4.3) 12/14/20 10:32 Baso % (Auto) 0.3 % (0.0-1.8) 12/14/20 10:32 Lymph # (Auto) 2.5 K/mm3 (1.2-5.4) 12/14/20 10:32 Parker # (Auto) 0.8 K/mm3 (0.0-0.8) 12/14/20 10:32 Eos # (Auto) 0.2 K/mm3 (0.0-0.4) 12/14/20 10:32 Baso # (Auto) 0.0 K/mm3 (0.0-0.1) 12/14/20 10:32 Add Manual Diff Complete 12/10/20 09:37 Total Counted 100 12/10/20 09:37 Seg Neutrophils % 66.3 % (40.0-70.0) 12/14/20 10:32 Seg Neuts % (Manual) 81.0 % (40.0-70.0) H 12/10/20 09:37 Band Neutrophils % 2.0 % 10/15/20 05:50 Lymphocytes % (Manual) 17.0 % (13.4-35.0) 12/10/20 09:37 Reactive Lymphs % (Man) 1.0 % 10/02/20 12:18 Monocytes % (Manual) 2.0 % (0.0-7.3) 12/10/20 09:37 Eosinophils % (Manual) 1.0 % (0.0-4.3) 10/29/20 07:56 Myelocytes % 2.0 % 10/02/20 13:05 Metamyelocytes % 1.0 % 10/14/20 04:00 Nucleated RBC % Not Reportable 12/10/20 09:37 Seg Neutrophils # 6.8 K/mm3 (1.8-7.7) 12/14/20 10:32 Seg Neutrophils # Man 10.1 K/mm3 (1.8-7.7) H 12/10/20 09:37 Band Neutrophils # 0.0 K/mm3 12/10/20 09:37 Lymphocytes # (Manual) 2.1 K/mm3 (1.2-5.4) 12/10/20 09:37 Abs React Lymphs (Man) 0.0 K/mm3 12/10/20 09:37 Monocytes # (Manual) 0.3 K/mm3 (0.0-0.8) 12/10/20 09:37 Eosinophils # (Manual) 0.0 K/mm3 (0.0-0.4) 12/10/20 09:37 Basophils # (Manual) 0.0 K/mm3 (0.0-0.1) 12/10/20 09:37 Metamyelocytes # 0.0 K/mm3 12/10/20 09:37 Myelocytes # 0.0 K/mm3 12/10/20 09:37 Promyelocytes # 0.0 K/mm3 12/10/20 09:37 Blast Cells # 0.0 K/mm3 12/10/20 09:37 WBC Morphology Not Reportable 12/10/20 09:37 Hypersegmented Neuts Not Reportable 12/10/20 09:37 Hyposegmented Neuts Not Reportable 12/10/20 09:37 Hypogranular Neuts Not Reportable 12/10/20 09:37 Smudge Cells Not Reportable 12/10/20 09:37 Toxic Granulation Not Reportable 12/10/20 09:37 Toxic Vacuolation Not Reportable 12/10/20 09:37 Dohle Bodies Not Reportable 12/10/20 09:37 Pelger-Huet Anomaly Not Reportable 12/10/20 09:37 Ester Rods Not Reportable 12/10/20 09:37 Platelet Estimate Consistent w auto 12/10/20 09:37 Clumped Platelets Not Reportable 12/10/20 09:37 Plt Clumps, EDTA Not Reportable 12/10/20 09:37 Large Platelets Not Reportable 12/10/20 09:37 Giant Platelets Not Reportable 12/10/20 09:37 Platelet Satelliting Not Reportable 12/10/20 09:37 Plt Morphology Comment Not Reportable 12/10/20 09:37 RBC Morphology Normal 12/10/20 09:37 Dimorphic RBCs Not Reportable 12/10/20 09:37 Polychromasia Not Reportable 12/10/20 09:37 Hypochromasia 1+ 12/10/20 09:37 Poikilocytosis Not Reportable 12/10/20 09:37 Anisocytosis Not Reportable 12/10/20 09:37 Microcytosis Not Reportable 12/10/20 09:37 Macrocytosis Not Reportable 12/10/20 09:37 Spherocytes Not Reportable 12/10/20 09:37 Pappenheimer Bodies Not Reportable 12/10/20 09:37 Sickle Cells Not Reportable 12/10/20 09:37 Target Cells Not Reportable 12/10/20 09:37 Tear Drop Cells Not Reportable 12/10/20 09:37 Ovalocytes Not Reportable 12/10/20 09:37 Stomatocytes Few 10/14/20 04:00 Helmet Cells Not Reportable 12/10/20 09:37 [place] Bodies Not Reportable 12/10/20 09:37 Colon Rings Not Reportable 12/10/20 09:37 Antoine Cells Not Reportable 12/10/20 09:37 Bite Cells Not Reportable 12/10/20 09:37 Crenated Cell Not Reportable 12/10/20 09:37 Elliptocytes Not Reportable 12/10/20 09:37 Acanthocytes (Spur) Not Reportable 12/10/20 09:37 Rouleaux Not Reportable 12/10/20 09:37 Hemoglobin C Crystals Not Reportable 12/10/20 09:37 Schistocytes Not Reportable 12/10/20 09:37 Malaria parasites Not Reportable 12/10/20 09:37 Sickle Cell Solubility See scanned result 10/04/20 Unknown Hemoglobin A See scanned result 10/04/20 Unknown Hemoglobin A2 See scanned result 10/04/20 Unknown Hemoglobin A2 Prime See scanned result 10/04/20 Unknown Hemoglobin C See scanned result 10/04/20 Unknown Hemoglobin D See scanned result 10/04/20 Unknown Hemoglobin E See scanned result 10/04/20 Unknown Hgb F Diffential Stain See scanned result 10/04/20 Unknown Hemoglobin F Quant See scanned result 10/04/20 Unknown Hemoglobin G See scanned result 10/04/20 Unknown Hemoglobin S See scanned result 10/04/20 Unknown Hemoglobin [place] See scanned result 10/04/20 Unknown Hemoglobin [place] See scanned result 10/04/20 Unknown Hemoglobin Analilia See scanned result 10/04/20 Unknown Variant Hemoglobin See scanned result 10/04/20 Unknown Abnorm Hgb IEF Confirm See scanned result 10/04/20 Unknown Hemoglobin Interpret See scanned result 10/04/20 Unknown Hemoglobinopathy Note See scanned result 10/04/20 Unknown Sharad Bodies Not Reportable 12/10/20 09:37 Hem Pathologist Commnt No 12/10/20 09:37 PT 13.6 Sec. (12.2-14.9) 10/21/20 13:54 INR 1.06 (0.87-1.13) 10/21/20 13:54 APTT 31.6 Sec. (24.2-36.6) 10/03/20 00:40 Fibrinogen 336 mg/dl (211-480) 10/04/20 10:00 D-Dimer 1974.47 ng/mlDDU (0-234) H 11/11/20 13:50 ABG pH 7.459 pH Units (7.350-7.450) H 10/26/20 10:30 POC ABG pCO2 20.7 mmHg (32.0-48.0) L 10/13/20 07:18 ABG pCO2 32.4 mm Hg 10/26/20 10:30 POC ABG pO2 137.9 mmHg (83-108) H 10/13/20 07:18 ABG pO2 112.2 mm Hg (80.0-90.0) H 10/26/20 10:30 POC ABG HCO3 14.8 10/13/20 07:18 ABG HCO3 22.5 mmol/L (20.0-26.0) 10/26/20 10:30 ABG O2 Saturation 98.2 % (95.0-99.0) 10/26/20 10:30 ABG O2 Content 18.5 (0.0-44) 10/26/20 10:30 POC ABG Base Excess -6.9 10/13/20 07:18 ABG Base Excess -0.6 mmol/L (-2.0-3.0) 10/26/20 10:30 ABG Hemoglobin 13.5 gm/dl (12.0-16.0) 10/26/20 10:30 ABG Oxyhemoglobin 98.3 (94-98) H 10/13/20 07:18 ABG Carboxyhemoglobin 1.3 % (0.0-5.0) 10/26/20 10:30 ABG Methemoglobin 0.5 % (0.0-1.5) 10/26/20 10:30 ABG Sodium 135.9 mmol/L (136.0-145.0) L 10/13/20 07:18 ABG Potassium 3.7 mmol/L (3.40-4.50) 10/13/20 07:18 ABG Chloride 111.0 mmol/L (98-107) H 10/13/20 07:18 ABG Glucose 109 mg/dL (65-95) H 10/13/20 07:18 VBG pH 6.949 (7.320-7.420) L* 10/02/20 Unknown Oxyhemoglobin 96.5 % (95.0-99.0) 10/26/20 10:30 Carboxyhemoglobin 0.3 (0.5-1.5) L 10/13/20 07:18 FiO2 25 % 10/26/20 10:30 Sodium 138 mmol/L (137-145) D 12/22/20 11:03 Potassium 3.9 mmol/L (3.6-5.0) 12/22/20 11:03 Chloride 101.0 mmol/L (98-107) 12/22/20 11:03 Carbon Dioxide 25 mmol/L (22-30) 12/22/20 11:03 Anion Gap 16 mmol/L 12/22/20 11:03 BUN 10 mg/dL (7-17) 12/22/20 11:03 Creatinine 0.5 mg/dL (0.6-1.2) L 12/22/20 11:03 Estimated GFR > 60 ml/min 12/22/20 11:03 BUN/Creatinine Ratio 20 % 12/22/20 11:03 Glucose 110 mg/dL (65-100) H 12/22/20 11:03 POC Glucose 100 mg/dL (70-105) 12/22/20 05:26 Random Insulin 43.2 uIU/mL (<=19.6) H 11/02/20 19:19 Proinsulin See scanned result 11/02/20 19:19 C-Peptide 6.23 ng/mL (0.80-3.85) H 11/02/20 19:19 Lactic Acid 1.90 mmol/L (0.7-2.0) 10/04/20 22:00 Uric Acid 7.5 mg/dL (3.5-7.6) 10/02/20 13:05 Calcium 9.5 mg/dL (8.4-10.2) 12/22/20 11:03 Ionized Calcium 4.4 mg/dL (4.8-5.6) L 10/07/20 21:00 Phosphorus 4.60 mg/dL (2.5-4.5) H 11/13/20 10:05 Magnesium 2.10 mg/dL (1.7-2.3) 11/13/20 10:05 Total Bilirubin 0.40 mg/dL (0.1-1.2) 12/22/20 11:03 AST 45 units/L (5-40) H 12/22/20 11:03 ALT 33 units/L (7-56) 12/22/20 11:03 Alkaline Phosphatase 100 units/L (35-129) 12/22/20 11:03 Lactate Dehydrogenase 769 units/L (91-180) H 10/02/20 13:05 C-Reactive Protein 0.70 mg/dL (0.00-1.30) 11/11/20 13:50 NT-Pro-B Natriuret Pep 2788 pg/mL (0-450) H 10/04/20 10:00 Total Protein 7.5 g/dL (6.3-8.2) 12/22/20 11:03 Albumin 3.8 g/dL (3.9-5) L 12/22/20 11:03 Albumin/Globulin Ratio 1.0 % 12/22/20 11:03 Procalcitonin < 0.05 ng/mL (<0.15) 11/11/20 13:50 Arterial Blood Glucose 109 mg/dL (65-95) H 10/13/20 07:18 Arterial Blood Ionized Calcium 4.6 mg/dL (4.6-5.3) 10/13/20 07:18 Urine Color Kelsey (Yellow) 12/10/20 09:25 Urine Turbidity Cloudy (Clear) 12/10/20 09:25 Urine pH 7.0 (5.0-7.0) 12/10/20 09:25 Ur Specific [place] 1.027 (1.003-1.030) 12/10/20 09:25 Urine Protein 100 mg/dl mg/dL (Negative) 12/10/20 09:25 Urine Glucose (UA) Neg mg/dL (Negative) 12/10/20 09:25 Urine Ketones Neg mg/dL (Negative) 12/10/20 09:25 Urine Blood Sm (Negative) 12/10/20 09:25 Urine Nitrite Neg (Negative) 12/10/20 09:25 Urine Bilirubin Neg (Negative) 12/10/20 09:25 Urine Urobilinogen 4.0 mg/dL (<2.0) 12/10/20 09:25 Ur Leukocyte Esterase Mod (Negative) 12/10/20 09:25 Urine WBC (Auto) 50.0 /HPF (0.0-6.0) H 12/10/20 09:25 Urine RBC (Auto) 27.0 /HPF (0.0-6.0) 12/10/20 09:25 U Epithel Cells (Auto) 8.0 /HPF (0-13.0) 12/10/20 09:25 Urine Bacteria (Auto) 4+ /HPF (Negative) 11/11/20 13:50 Urine WBC Clumps 3+ /HPF 11/11/20 13:50 Calcium Oxalate Crystal Few 11/11/20 13:50 Urine Mucus Few /HPF 11/11/20 13:50 Urine Yeast (Budding) 2+ /HPF 12/10/20 09:25 Vancomycin Trough 12.6 ug/mL (5.0-20.0) 10/21/20 13:54 Random Vancomycin 10.7 ug/mL (0-40.0) 10/16/20 13:09 Phenytoin 5.7 ug/mL (10.0-20.0) L 10/13/20 07:00 C. difficile Tox (PCR) Positive (Negative) 10/16/20 10:22 Coronavirus (PCR) Negative (Negative) 10/08/20 14:15 Blood Type O POSITIVE 10/02/20 12:50 Antibody Screen Negative 10/02/20 12:50 Crossmatch See Detail 10/02/20 12:50 - Diagnostic Impressions Diagnostic Impressions: Echocardiogram 10/03/20 13:42 Transthoracic Echocardiogram Indication: S/P Cardiac Arrest R/O Cardiomyopathy BP: 133/71 Conclusions *Global left ventricular systolic function is normal. *The estimated ejection fraction is 60-65%. *There is trace of mitral regurgitation. *The right 0heart chambers are both slightly dilated. *There is mild tricuspid regurgitation. *There is mild-moderate pulmonary hypertension. *The right ventricular systolic pressure is calculated at 44 mmHg. *The study quality is technically difficult. Findings Procedure Info: The study quality is technically difficult. The study is technically limited due to patient body habitus. The study was technically limited due to the patient's inability to lay in the left lateral decubitus position. Left Ventricle: The left ventricular chamber size is normal. There is no left ventricular hypertrophy. Global left ventricular systolic function is normal. The estimated ejection fraction is 60-65%. Left Atrium: The left atrial chamber size is normal. Right Ventricle: The right ventricle is slightly dilated. Right Atrium: The right atrium is mildly dilated. Aortic Valve: The aortic valve leaflets are mildly thickened. There is no evidence of aortic regurgitation. There is no evidence of aortic stenosis. Mitral Valve: The mitral valve leaflets are mildly thickened. There is trace of mitral regurgitation. There is no evidence of mitral stenosis. Tricuspid Valve: There is mild tricuspid regurgitation. The right ventricular systolic pressure is calculated at 44 mmHg. There is evidence of mild pulmonary hypertension. Pulmonic Valve: There is trace pulmonic regurgitation. Pericardium: There is no pericardial effusion. Aorta: There is no dilatation of the ascending aorta. There is no dilatation of the aortic root. Venous: The inferior vena cava is dilated. Measurements Chambers 2D Name Value Normal Range IVSd (2D) 1 cm (0.6 - 1.1) LVPWd (2D) 1.01 cm (0.6 - 1.1) LVIDd (2D) 4.58 cm (3.7 - 5.6) LVIDs (2D) 3.17 cm (2 - 3.8) LV FS (2D) 30.93 % - EF Teichholz (2D) 58.66 % - Ao root diameter (2D) 2.94 cm (2 - 3.7) Volumes/Mass Name Value Normal Range LA ESV SP 4CH (A/L) 72.82 ml - LA ESV SP 2CH (A/L) 66.86 ml - LA ESV BP (A/L) 74.49 ml - LA ESV SP 4CH (MOD) 71.03 ml - LA ESV SP 2CH (MOD) 64.3 ml - LV EDV SP 4CH (MOD) 98.82 ml - LV ESV SP 4CH (MOD) 24.8 ml - EF SP 4CH (MOD) 74.9 % - LV EDV SP 2CH (MOD) 86.1 ml - LV ESV SP 2CH (MOD) 36.93 ml - EF SP 2CH (MOD) 57.11 % - LV EDV BP 94.4 ml - LV ESV BP 32.66 ml - BP EF (MOD) 65.4 % - Diastolic/Systolic Function Name Value Normal Range MV E-wave Vmax 1.04 m/sec - MV deceleration time 160.46 msec - MV A-wave Vmax 0.92 m/sec - MV E:A ratio 1.14 ratio - Aortic Valve Name Value Normal Range AV Vmax 2.12 m/sec - AV VTI 22.37 cm - AV peak gradient 17.95 mmHg - AV mean gradient 7.29 mmHg - LVOT diameter 2.01 cm - LVOT Vmax 1.8 m/sec - LVOT VTI 27.17 cm - LVOT peak gradient 12.91 mmHg - LVOT mean gradient 6.83 mmHg - SV LVOT 86.42 ml - ANITA (continuity Vmax) 2.7 cm2 - ANITA (continuity VTI) 3.86 cm2 - Ascending Ao 3.18 cm - Tricuspid Valve Name Value Normal Range TV E-wave Vmax 0.88 m/sec - TR Vmax 3.01 m/sec - TR peak gradient 36.27 mmHg - RAP 8 mmHg - RVSP 44 mmHg - IVC diameter 2.65 cm (1.2 - 2.3) Pulmonic Valve/Qp:Qs Name Value Normal Range PV Vmax 1.22 m/sec - PV peak gradient 5.91 mmHg - RVOT Vmax 0.87 m/sec - RVOT VTI 13.32 cm - RVOT peak gradient 3 mmHg - PV acceleration time 110.37 msec - [place]/IV: Voiding Method External Female Catheter IV Catheter Type [Right Foot] INT / Saline Lock IV Catheter Type [Left Forearm Peripheral IV ] IV Catheter Type [Left Wrist] INT / Saline Lock IV Catheter Type [Right Hand] INT / Saline Lock IV Catheter Type [Right INT / Saline Lock Antecubital] IV Catheter Type [Right Upper Mid-line arm] IV Catheter Type [Left Triple Lumen Cath Internal Jugular] IV Catheter Type [Left Hand] Peripheral IV IV Catheter Type [Left Peripheral IV Antecubital] Active Medications - Current Medications Current Medications: Generic Name Dose Route Start Last Admin Trade Name Freq PRN Reason Stop Dose Admin Acetaminophen 650 mg 10/05/20 16:34 12/22/20 12:36 Acetaminophen 325 Mg/10.15 Ml Oral Liqd Unit Dose FEEDTUBE 650 mg Q6H PRN Administration Non Cardiac Pain or Temp>100.5 Albuterol 2.5 mg 11/05/20 13:03 11/06/20 13:04 Albuterol 2.5 Mg/3 Ml Nebu IH 2.5 mg Q4HRT PRN Administration Shortness Of Breath Lipase/Protease/Amylase 1 each 10/05/20 11:09 Lipase 10,500/Protease 25,000/Amylase 43,750 (Units) Dr Barakat FEEDTUBE PRN PRN For Clogged Feeding Tube Enoxaparin Sodium 40 mg 10/22/20 10:00 12/22/20 09:07 Enoxaparin 40 Mg/0.4 Ml Inj SUB-Q 40 mg DAILY ERINN Administration Protocol Famotidine 20 mg 10/07/20 10:00 12/22/20 09:00 Famotidine 20 Mg Tab PO 20 mg BID ERINN Administration Furosemide 40 mg 10/17/20 10:00 12/22/20 09:00 Furosemide 40 Mg Tab PO 40 mg QDAY ERINN Administration Hydralazine HCl 20 mg 10/07/20 11:49 10/17/20 07:20 Hydralazine 20 Mg/1 Ml Inj IV 20 mg Q6H PRN Administration SBP >170 Dextrose 1,000 mls @ 42 mls/hr 12/15/20 11:00 12/21/20 17:00 D5w IV 42 mls/hr DIRECT ERINN Administration Simple Syrup 15 ml 10/05/20 11:09 Simple Syrup 15 Ml FEEDTUBE PRN PRN Hypoglycemia Simple Syrup 30 ml 10/05/20 11:09 Simple Syrup 15 Ml FEEDTUBE PRN PRN Hypoglycemia Sodium Bicarbonate 325 mg 10/05/20 11:09 12/16/20 08:19 Sodium Bicarbonate 325 Mg Tab FEEDTUBE 325 mg PRN PRN Administration For Clogged Feeding Tube Nutrition/Malnutrition Assess - Dietary Evaluation Nutrition/Malnutrition Findings: Nutrition Notes Start: 10/04/20 11:13 Freq: Status: Active Protocol: Document 12/21/20 11:40 (Rec: 12/21/20 11:44 MK [id number]) Nutrition Notes Initial or Follow up Reassessment Current Diagnosis Respiratory Failure Other Pertinent Diagnosis C-Diff, Cardiac arrest, s/p c- section and supracervical hysterectomy, Brain Current Diet Jevity 1.2 at 60 mL/hr Labs/Tests 12/18: Na 150 BUN 20 Pertinent Medications Lasix Height 5 ft 8 in Weight 93.1 kg [place] Body Weight (kg) 63.63 BMI 31.1 Weight Status Obese Subjective/Other Information FU for TF tolerance. Pt with TF off, per RN, due to patients posistion. RN to restart when she turns pt again. Percent of energy/protein needs met: 0%/0% Burn Absent Trauma Absent GI Symptoms None Food Allergy Yes Current % PO Negligible Minimum of two criteria Yes Interpretation of Weight Loss (severe) >2% in 1 week Fluid Accumulation Mild (non-severe) #2 Nutrition Diagnosis Malnutrition Diagnosis Progress(for reassessment Continues documentation) #1 Nutrition Diagnosis Inadequate oral intake Diagnosis Progress(for reassessment Continues documentation) Is patient on ventilator? No Is Patient Ambulatory and/or Out of Bed No REE-([facility]-confined to bed) 2028.356 Kcal/Kg value to use for calculation 19 Approximate Energy Requirements Using 1769 kcal/Kg Calculation Used for Recommendations Kcal/kg Additional Notes PRO needs: 65-81 (0.8-1 g/kg AdBW 81kg) Fluid needs: 1 mL/kcal or per MD Nutrition Intervention Change Diet Order: Continue TF Nutrition Support: Jevity 1.2 at 60ml/hr. Flush 100ml q4h. Flush 250 ml q4h for Hypernatremia. Once hypernatremia is resolved, flush 100 q4h. Kcal 1,728 Protein (gm) 80 Fluid (mL) 1,162 Goal #1 TF tolerance Goal #2 Meet at least 75% of energy and protein needs via TF Anticipated Discharge Needs: Unable to determine at this time Follow-Up By: 12/25/20 Additional Comments FU for stable TF and Na labs
[2020-12-23] MEDS: FUROSEMIDE 40 MG TAB PO SCH (10:14)
[2020-12-23] MEDS: ENOXAPARIN 40 MG/0.4 ML INJ SUB-Q SCH (10:14)
[2020-12-23] MEDS: FAMOTIDINE 20 MG TAB PO SCH ×2 (10:15→23:15)
--- NOTE | 2020-12-23 11:56 | Progress Note ---
Assessment and Plan Assessment and plan: Eclampsia/HELLP Syndrome, ADOLPH, DIC; s/p , s/p supracervical hyst 30 year old -[place] female CHE 10/25/20 at 36w5d who presents with seizures in triage on 10/02/20. Pt was not able to provide history but per pt's , she presented to the hospital to return a 24 hour urine specimen for analysis. She then suddenly reported that she did not feel good. She was taken to labor and delivery and shortly after arrival, she began seizing. During this time, a code met was called because the patient became hypoxic. She was then noted to be without a pulse. Chest compressions were started immediately, and the patient was emergently taken to the operating room for delivery of the fetus. Off note, This patient has had care at [facility] with comanagement by [facility] since 11 wks complicated by ADHD, morbid obesity, generalized anxiety disorder, panic attacks, chronic narcotic use, fibromyalgia, GERD, Irritable Bowel Syndrome, Migraines, h/o endometrial ablation and ovarian vein embolization, genital herpes, insomnia, LGA fetus, nausea and vomiting, polyhydramnios, quad screen positive for Down's Syndrome, and previous x 3. She is GBS negative. -- Sepsis with presumed Pneumonia Teated with iv abx, follow Cx -Completed cefepime course 5 days on 10/09/2020 -Check MRSA culture -Start vancomycin p.o. empirically for C. difficile total 10 days, given diarrhea and worsening leukocytosis, --Acute respiratory failure with hypoxia Patient extubated. --DIC (disseminated intravascular coagulation) vs HELLP syndrome Has anemia,thrombocytopenia and elevated liver enzymes Patient received multiple units of RBCs, FFP's, cryo at present not requiring transfusion. Has resolved H&H is 12 and 37. Hemoglobin hematocrit remained stable pending today. Hematology/oncology recommendations appreciated Continue to trend fibrinogen and INR Hemoglobin hematocrit remains stable today. Follow platelets transfuse as necessary. --Possible Eclampsia/HELLP Syndrome Patient presented with seizure-->hypoxia-->urgent C section-->hysterectomy for severe bleeding/DIC developed severe anemia-->received RBC, plt, FFP, cryo was on max pressors-->now off pressors still on vent, on sedation tracheostomy. 50% now. Hematology following --s/p Cardiac arrest x2 on admission and on 10/07 ACLS protocol followed by revival Echo showed preserved Ef --Shock-resolved now awaiting placement s/p pressor support Likely hypovolemic. on empirical antibiotics for possible sepsis. Continue to monitor blood pressure closely Trend H&H repeated H&H today stable not requiring transfusion. -- Hypernatremia --Lactic acidosis also resolving. As a result of poor organ perfusion and possible sepsis Continue IV hydration. Lactic acid is trending down Nephrology on board Overall prognosis extremely poor. --ADOLPH-resolved As a result of hypoperfusion and shock Continue IV hydration Cr stable, will follow up in the a.m. has been hemodynamically stable overall prognosis poor Even more quality of life extremely poor --DVT prophylaxis Patient presented with DIC No anticoagulants UTI -Was not present on admission -Diagnosed on 12/10/2020 Last day of Rocephin. 11:30: Pt brought to L&D triage for evaluation of possible labor. Pt accompanied by her spouse. Pt spouse poor historian; unable to obtain history- allergies at this time. Pt taken from registration to triage area via WC. Pt unresponsive, actively seizing with snorous respirations. blending operator, Kassy, called and requesting assistance. 11:35: Multiple staff at bedside. Pt 02 sat 67% on nonrebreather, unable to read BP at this time. Yifan Theodore CRNA, at bedside for intubation and assistance with IV insertion. INT attempt by multiple RNs unsuccessful at this time. 11:42: Pt being bagged by KORIN, 02% 79%. No pulse palpated, compressions started at this time; bharati young called and Dr. Newberry preparing OR for emergent c/s. 11:44: Continued compressions on stretcher while transporting pt to OR 1. Pt being bagged with jaw thrust manuever in place by KORIN Stringer student. 11:45: Arrival to OR 1. Dr. Newberry and Dr. Portillo present for emergent c/s. Code team arrived for continued care. patient revived and c/s done Patient has been bleeding from C/s site followed by supracervical hysterectomy for severe bleeding Patient transfused multiple units of PRBC, Patient in DIC. Transferred to the ICU 10/03. Patient seen and examined at bedside this morning. Patient is nonresponsive and mechanically ventilated. On pressors. Labs reviewed-has leukocytosis, anemia, thrombocytopenia, ADOLPH and lactic acidosis. Started on IV antibiotics to cover possible sepsis secondary to DIC. Hematology oncology recommendations appreciated-needs additional cryoprecipitate and FFP. Monitor D-dimer, fibrinogen and frequent labs. Nephrology consulted for lactic acidosis and ADOLPH. 10/04. Remains mechanically ventilated. Kevin antibiotics. Labs shows improved acidosis - lactic acid 3.5. Hb drop noted. Getting transfused 2 units PRBCs. Platelet count is ~40k. Continue to monitor labs closely. Critical care team on board. 10/05; xray reviewed, concerning for multifocal infilrate, likely underlying Pneumonia, will add ID consult to assist with management of this critically ill patient, start tube feed, closely monitor renal system 10/06: Resumed care, remains on mechanical ventilation. No active bleeding, H&H stable. Continue to monitor CBC and BMP. Continue IV antibiotic for underlying pneumonia. Follow critical care and ID recommendation. 10/07: Remains on mechanical ventilation. No active bleeding, H&H stable. Critical care following, wean off ventilation as tolerated. 10/08: Patient had another cardiac arrest last night. Remains on mechanical ventilation, update family. Continue supportive care -poor prognosis 10/09: Called patient mother and discussed about patient care and management. Answered all question to best of my knowledge and family satisfaction. Patient remains on mechanical ventilation, cardiac arrest x2 so far. Critically sick, poor prognosis 10/10: remains on mechanical ventilation. h/h stable, no active bleeding. monitor CBC/BMP 10/11: WBC trended up with diarrhea, started on vancomycin po. remains on MV, off pressor, tolerating TF 10/12: remains on MV, off pressor, tolerating TF. called family for update but unable to reach, could not leave message as it was full. cont supportive care, wean off vent as tolerated. 10/13/2020; patient is on mechanical ventilation, tolerating tube feeding. Patient has labored breathing. Neuro was consulted and recommend MRI. Patient is on Precedex. Rectal tube in place. 10/14/2020; patient is on mechanical ventilation, Precedex. Patient had fever and blood culture ordered. Patient is on IV vancomycin per ID recommendation. Neuro consulted and recommend MRI. Continue to monitor. Prognosis is guarded. 10/15/2020; patient is on mechanical ventilation, Precedex. Patient had fever and blood culture ordered. Patient is on IV vancomycin per ID recommendation. Neuro consulted and recommend MRI. Continue to monitor. Prognosis is guarded. 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 12/06/20; anoxic brain injury. Awaiting placement. 12/07/2020; anoxic brain injury, awaiting placement. 12/09/2020; anoxic brain injury, awaiting placement. 12/10/2020; patient had episodes of fever overnight. CBC, BMP, blood culture, UA and chest x-ray ordered, will follow and manage accordingly. Urinalysis is suggestive of UTI and I put the patient on ceftriaxone, order urine culture. Chest x-ray is normal. 12/11/2020; patient is on ceftriaxone day 2 for UTI. We will continue to follow urine culture. 12/12/2020. Day #3 of Rocephin for UTI. We will continue for 2 more days while she is here. Present UTI. 12/13/2020. Day #4 of Rocephin for UTI. Patient remains on 50% with tracheostomy. Remains unresponsive with evidence of anoxic encephalopathy unable to make needs known. 12/14/2020. Day #5 of Rocephin for UTI completed today. Remains encephalopathic unable to make needs known. Remains on 50% unable to decrease oxygen via tracheostomy. Overall prognosis remains extremely poor. 3/2: Continue to monitor. Stop and monitor antibiotics at this time. Continue to wean oxygen as tolerated. Wean oxygen as tolerated. Case management working on placement. 3: Continue supportive care aspiration precautions. Awaiting placement discussion. Monitor fever curve. Prognosis remains poor no evidence of neurological recovery as of today 3/4: Continue supportive care, check labs and chest xray. Still monitor off antibiotics. Monitor Sodium level 12/18: Patient remains with intermittent low grade fever, reviewed EEG from [facility] again, consistent for Ischemic Hypoxic Encephalopathy, patient with decorticating posturing type presentation. Will discuss with engineering model maker to optimize diet so we can discontinue D5. CXR with no abnormality. Discussed extensively with the nursing staff at bedside CXR IMPRESSION: 1. No acute findings. 12/19: No clinical change 12/20: No clinical change, now off abx, monitor, discussed her medications with our pharmacist I believe that her posture and rigidity is likely from underlying anoxic encephalopathy. Continue to monitor and await placement decision. Continue aggressive suctioning. Plan discussed in detail with the nursing staff 12/21: Continue supportive care. Will give 500 cc bolus of fluid today to replace insensible losses. Tachycardia appears to be improving. Blood pressure precludes adjusting cardiac meds. Still awaiting placement from case management. Plan discussed in detail with the nursing staff 12/22. Continue support supportive care. Tracheostomy and PEG in place. Remains nonresponsive. Awaiting placement. 12/23. Continue support supportive care. Tracheostomy and PEG in place. Remains nonresponsive. Awaiting placement. Remains tachycardic. Decrease dose of lasix. Will try low dose metoprolol. Monitor BP closely History Interval history: Trach in place Not responsive to calls Hospitalist Physical - Physical exam Narrative exam: VITAL SIGNS: Reviewed. GENERAL: Trach in place HEAD: No signs of head trauma. EYES: Pupils are equal. NECK: No adenopathy, no JVD. CHEST: Rales posteriorly CARDIAC: normal S1 and S2, without murmurs, gallops, or rubs. ABDOMEN: Soft, non tender and non distended. No rebound or guarding, and no masses palpated. Bowel Sounds normal MUSCULOSKELETAL: No edema NEUROLOGIC EXAM: Not responsive SKIN: No obvious lesions - Constitutional Vitals: Temp Pulse Resp BP Pulse Ox 99.2 F 112 H 12 96/59 100 12/23/20 08:00 12/23/20 11:00 12/23/20 11:00 12/23/20 11:00 12/23/20 11:00 HEART Score - HEART Score Age: < 45 Risk factors: 1-2 risk factors - Critical Actions Critical Actions: >7 pts:50-65% risk of adverse cardiac event. Early invasive measures Results - Labs CBC & Chem 7: 12/18/20 04:57 12/22/20 11:03 Labs: Laboratory Last Values WBC 8.6 K/mm3 (4.5-11.0) 12/18/20 04:57 RBC 5.16 M/mm3 (3.65-5.03) H 12/18/20 04:57 Hgb 13.0 gm/dl (10.1-14.3) 12/18/20 04:57 Hgb Comment See scanned result 12/20/20 Unknown Hct 41.6 % (30.3-42.9) 12/18/20 04:57 MCV 81 fl (79-97) 12/18/20 04:57 MCH 25 pg (28-32) L 12/18/20 04:57 MCHC 31 % (30-34) 12/18/20 04:57 RDW 14.5 % (13.2-15.2) 12/18/20 04:57 Plt Count 258 K/mm3 (140-440) 12/18/20 04:57 Lymph % (Auto) 24.1 % (13.4-35.0) 12/14/20 10:32 [place] % (Auto) 7.8 % (0.0-7.3) H 12/14/20 10:32 Eos % (Auto) 1.5 % (0.0-4.3) 12/14/20 10:32 Baso % (Auto) 0.3 % (0.0-1.8) 12/14/20 10:32 Lymph # (Auto) 2.5 K/mm3 (1.2-5.4) 12/14/20 10:32 [place] # (Auto) 0.8 K/mm3 (0.0-0.8) 12/14/20 10:32 Eos # (Auto) 0.2 K/mm3 (0.0-0.4) 12/14/20 10:32 Baso # (Auto) 0.0 K/mm3 (0.0-0.1) 12/14/20 10:32 Add Manual Diff Complete 12/10/20 09:37 Total Counted 100 12/10/20 09:37 Seg Neutrophils % 66.3 % (40.0-70.0) 12/14/20 10:32 Seg Neuts % (Manual) 81.0 % (40.0-70.0) H 12/10/20 09:37 Band Neutrophils % 2.0 % 10/15/20 05:50 Lymphocytes % (Manual) 17.0 % (13.4-35.0) 12/10/20 09:37 Reactive Lymphs % (Man) 1.0 % 10/02/20 12:18 Monocytes % (Manual) 2.0 % (0.0-7.3) 12/10/20 09:37 Eosinophils % (Manual) 1.0 % (0.0-4.3) 10/29/20 07:56 Myelocytes % 2.0 % 10/02/20 13:05 Metamyelocytes % 1.0 % 10/14/20 04:00 Nucleated RBC % Not Reportable 12/10/20 09:37 Seg Neutrophils # 6.8 K/mm3 (1.8-7.7) 12/14/20 10:32 Seg Neutrophils # Man 10.1 K/mm3 (1.8-7.7) H 12/10/20 09:37 Band Neutrophils # 0.0 K/mm3 12/10/20 09:37 Lymphocytes # (Manual) 2.1 K/mm3 (1.2-5.4) 12/10/20 09:37 Abs React Lymphs (Man) 0.0 K/mm3 12/10/20 09:37 Monocytes # (Manual) 0.3 K/mm3 (0.0-0.8) 12/10/20 09:37 Eosinophils # (Manual) 0.0 K/mm3 (0.0-0.4) 12/10/20 09:37 Basophils # (Manual) 0.0 K/mm3 (0.0-0.1) 12/10/20 09:37 Metamyelocytes # 0.0 K/mm3 12/10/20 09:37 Myelocytes # 0.0 K/mm3 12/10/20 09:37 Promyelocytes # 0.0 K/mm3 12/10/20 09:37 Blast Cells # 0.0 K/mm3 12/10/20 09:37 WBC Morphology Not Reportable 12/10/20 09:37 Hypersegmented Neuts Not Reportable 12/10/20 09:37 Hyposegmented Neuts Not Reportable 12/10/20 09:37 Hypogranular Neuts Not Reportable 12/10/20 09:37 Smudge Cells Not Reportable 12/10/20 09:37 Toxic Granulation Not Reportable 12/10/20 09:37 Toxic Vacuolation Not Reportable 12/10/20 09:37 Dohle Bodies Not Reportable 12/10/20 09:37 Pelger-Huet Anomaly Not Reportable 12/10/20 09:37 Ester Rods Not Reportable 12/10/20 09:37 Platelet Estimate Consistent w auto 12/10/20 09:37 Clumped Platelets Not Reportable 12/10/20 09:37 Plt Clumps, EDTA Not Reportable 12/10/20 09:37 Large Platelets Not Reportable 12/10/20 09:37 Giant Platelets Not Reportable 12/10/20 09:37 Platelet Satelliting Not Reportable 12/10/20 09:37 Plt Morphology Comment Not Reportable 12/10/20 09:37 RBC Morphology Normal 12/10/20 09:37 Dimorphic RBCs Not Reportable 12/10/20 09:37 Polychromasia Not Reportable 12/10/20 09:37 Hypochromasia 1+ 12/10/20 09:37 Poikilocytosis Not Reportable 12/10/20 09:37 Anisocytosis Not Reportable 12/10/20 09:37 Microcytosis Not Reportable 12/10/20 09:37 Macrocytosis Not Reportable 12/10/20 09:37 Spherocytes Not Reportable 12/10/20 09:37 Pappenheimer Bodies Not Reportable 12/10/20 09:37 Sickle Cells Not Reportable 12/10/20 09:37 Target Cells Not Reportable 12/10/20 09:37 Tear Drop Cells Not Reportable 12/10/20 09:37 Ovalocytes Not Reportable 12/10/20 09:37 Stomatocytes Few 10/14/20 04:00 Helmet Cells Not Reportable 12/10/20 09:37 [place] Bodies Not Reportable 12/10/20 09:37 Badger Rings Not Reportable 12/10/20 09:37 Antoine Cells Not Reportable 12/10/20 09:37 Bite Cells Not Reportable 12/10/20 09:37 Crenated Cell Not Reportable 12/10/20 09:37 Elliptocytes Not Reportable 12/10/20 09:37 Acanthocytes (Spur) Not Reportable 12/10/20 09:37 Rouleaux Not Reportable 12/10/20 09:37 Hemoglobin C Crystals Not Reportable 12/10/20 09:37 Schistocytes Not Reportable 12/10/20 09:37 Malaria parasites Not Reportable 12/10/20 09:37 Sickle Cell Solubility See scanned result 10/04/20 Unknown Hemoglobin A See scanned result 10/04/20 Unknown Hemoglobin A2 See scanned result 10/04/20 Unknown Hemoglobin A2 Prime See scanned result 10/04/20 Unknown Hemoglobin C See scanned result 10/04/20 Unknown Hemoglobin D See scanned result 10/04/20 Unknown Hemoglobin E See scanned result 10/04/20 Unknown Hgb F Diffential Stain See scanned result 10/04/20 Unknown Hemoglobin F Quant See scanned result 10/04/20 Unknown Hemoglobin G See scanned result 10/04/20 Unknown Hemoglobin S See scanned result 10/04/20 Unknown Hemoglobin [place] See scanned result 10/04/20 Unknown Hemoglobin [place] See scanned result 10/04/20 Unknown Hemoglobin Anal[place] See scanned result 10/04/20 Unknown Variant Hemoglobin See scanned result 10/04/20 Unknown Abnorm Hgb IEF Confirm See scanned result 10/04/20 Unknown Hemoglobin Interpret See scanned result 10/04/20 Unknown Hemoglobinopathy Note See scanned result 10/04/20 Unknown Sharad Bodies Not Reportable 12/10/20 09:37 Hem Pathologist Commnt No 12/10/20 09:37 PT 13.6 Sec. (12.2-14.9) 10/21/20 13:54 INR 1.06 (0.87-1.13) 10/21/20 13:54 APTT 31.6 Sec. (24.2-36.6) 10/03/20 00:40 Fibrinogen 336 mg/dl (211-480) 10/04/20 10:00 D-Dimer 1974.47 ng/mlDDU (0-234) H 11/11/20 13:50 ABG pH 7.459 pH Units (7.350-7.450) H 10/26/20 10:30 POC ABG pCO2 20.7 mmHg (32.0-48.0) L 10/13/20 07:18 ABG pCO2 32.4 mm Hg 10/26/20 10:30 POC ABG pO2 137.9 mmHg (83-108) H 10/13/20 07:18 ABG pO2 112.2 mm Hg (80.0-90.0) H 10/26/20 10:30 POC ABG HCO3 14.8 10/13/20 07:18 ABG HCO3 22.5 mmol/L (20.0-26.0) 10/26/20 10:30 ABG O2 Saturation 98.2 % (95.0-99.0) 10/26/20 10:30 ABG O2 Content 18.5 (0.0-44) 10/26/20 10:30 POC ABG Base Excess -6.9 10/13/20 07:18 ABG Base Excess -0.6 mmol/L (-2.0-3.0) 10/26/20 10:30 ABG Hemoglobin 13.5 gm/dl (12.0-16.0) 10/26/20 10:30 ABG Oxyhemoglobin 98.3 (94-98) H 10/13/20 07:18 ABG Carboxyhemoglobin 1.3 % (0.0-5.0) 10/26/20 10:30 ABG Methemoglobin 0.5 % (0.0-1.5) 10/26/20 10:30 ABG Sodium 135.9 mmol/L (136.0-145.0) L 10/13/20 07:18 ABG Potassium 3.7 mmol/L (3.40-4.50) 10/13/20 07:18 ABG Chloride 111.0 mmol/L (98-107) H 10/13/20 07:18 ABG Glucose 109 mg/dL (65-95) H 10/13/20 07:18 VBG pH 6.949 (7.320-7.420) L* 10/02/20 Unknown Oxyhemoglobin 96.5 % (95.0-99.0) 10/26/20 10:30 Carboxyhemoglobin 0.3 (0.5-1.5) L 10/13/20 07:18 FiO2 25 % 10/26/20 10:30 Sodium 138 mmol/L (137-145) D 12/22/20 11:03 Potassium 3.9 mmol/L (3.6-5.0) 12/22/20 11:03 Chloride 101.0 mmol/L (98-107) 12/22/20 11:03 Carbon Dioxide 25 mmol/L (22-30) 12/22/20 11:03 Anion Gap 16 mmol/L 12/22/20 11:03 BUN 10 mg/dL (7-17) 12/22/20 11:03 Creatinine 0.5 mg/dL (0.6-1.2) L 12/22/20 11:03 Estimated GFR > 60 ml/min 12/22/20 11:03 BUN/Creatinine Ratio 20 % 12/22/20 11:03 Glucose 110 mg/dL (65-100) H 12/22/20 11:03 POC Glucose 93 mg/dL (70-105) 12/23/20 11:37 Random Insulin 43.2 uIU/mL (<=19.6) H 11/02/20 19:19 Proinsulin See scanned result 11/02/20 19:19 C-Peptide 6.23 ng/mL (0.80-3.85) H 11/02/20 19:19 Lactic Acid 1.90 mmol/L (0.7-2.0) 10/04/20 22:00 Uric Acid 7.5 mg/dL (3.5-7.6) 10/02/20 13:05 Calcium 9.5 mg/dL (8.4-10.2) 12/22/20 11:03 Ionized Calcium 4.4 mg/dL (4.8-5.6) L 10/07/20 21:00 Phosphorus 4.60 mg/dL (2.5-4.5) H 11/13/20 10:05 Magnesium 2.10 mg/dL (1.7-2.3) 11/13/20 10:05 Total Bilirubin 0.40 mg/dL (0.1-1.2) 12/22/20 11:03 AST 45 units/L (5-40) H 12/22/20 11:03 ALT 33 units/L (7-56) 12/22/20 11:03 Alkaline Phosphatase 100 units/L (35-129) 12/22/20 11:03 Lactate Dehydrogenase 769 units/L (91-180) H 10/02/20 13:05 C-Reactive Protein 0.70 mg/dL (0.00-1.30) 11/11/20 13:50 NT-Pro-B Natriuret Pep 2788 pg/mL (0-450) H 10/04/20 10:00 Total Protein 7.5 g/dL (6.3-8.2) 12/22/20 11:03 Albumin 3.8 g/dL (3.9-5) L 12/22/20 11:03 Albumin/Globulin Ratio 1.0 % 12/22/20 11:03 Procalcitonin < 0.05 ng/mL (<0.15) 11/11/20 13:50 Arterial Blood Glucose 109 mg/dL (65-95) H 10/13/20 07:18 Arterial Blood Ionized Calcium 4.6 mg/dL (4.6-5.3) 10/13/20 07:18 Urine Color [place] (Yellow) 12/10/20 09:25 Urine Turbidity Cloudy (Clear) 12/10/20 09:25 Urine pH 7.0 (5.0-7.0) 12/10/20 09:25 Ur Specific [place] 1.027 (1.003-1.030) 12/10/20 09:25 Urine Protein 100 mg/dl mg/dL (Negative) 12/10/20 09:25 Urine Glucose (UA) Neg mg/dL (Negative) 12/10/20 09:25 Urine Ketones Neg mg/dL (Negative) 12/10/20 09:25 Urine Blood Sm (Negative) 12/10/20 09:25 Urine Nitrite Neg (Negative) 12/10/20 09:25 Urine Bilirubin Neg (Negative) 12/10/20 09:25 Urine Urobilinogen 4.0 mg/dL (<2.0) 12/10/20 09:25 Ur Leukocyte Esterase Mod (Negative) 12/10/20 09:25 Urine WBC (Auto) 50.0 /HPF (0.0-6.0) H 12/10/20 09:25 Urine RBC (Auto) 27.0 /HPF (0.0-6.0) 12/10/20 09:25 U Epithel Cells (Auto) 8.0 /HPF (0-13.0) 12/10/20 09:25 Urine Bacteria (Auto) 4+ /HPF (Negative) 11/11/20 13:50 Urine WBC Clumps 3+ /HPF 11/11/20 13:50 Calcium Oxalate Crystal Few 11/11/20 13:50 Urine Mucus Few /HPF 11/11/20 13:50 Urine Yeast (Budding) 2+ /HPF 12/10/20 09:25 Vancomycin Trough 12.6 ug/mL (5.0-20.0) 10/21/20 13:54 Random Vancomycin 10.7 ug/mL (0-40.0) 10/16/20 13:09 Phenytoin 5.7 ug/mL (10.0-20.0) L 10/13/20 07:00 C. difficile Tox (PCR) Positive (Negative) 10/16/20 10:22 Coronavirus (PCR) Negative (Negative) 10/08/20 14:15 Blood Type O POSITIVE 10/02/20 12:50 Antibody Screen Negative 10/02/20 12:50 Crossmatch See Detail 10/02/20 12:50 - Diagnostic Impressions Diagnostic Impressions: Echocardiogram 10/03/20 13:42 Transthoracic Echocardiogram Indication: S/P Cardiac Arrest R/O Cardiomyopathy BP: 133/71 Conclusions *Global left ventricular systolic function is normal. *The estimated ejection fraction is 60-65%. *There is trace of mitral regurgitation. *The right 0heart chambers are both slightly dilated. *There is mild tricuspid regurgitation. *There is mild-moderate pulmonary hypertension. *The right ventricular systolic pressure is calculated at 44 mmHg. *The study quality is technically difficult. Findings Procedure Info: The study quality is technically difficult. The study is technically limited due to patient body habitus. The study was technically limited due to the patient's inability to lay in the left lateral decubitus position. Left Ventricle: The left ventricular chamber size is normal. There is no left ventricular hypertrophy. Global left ventricular systolic function is normal. The estimated ejection fraction is 60-65%. Left Atrium: The left atrial chamber size is normal. Right Ventricle: The right ventricle is slightly dilated. Right Atrium: The right atrium is mildly dilated. Aortic Valve: The aortic valve leaflets are mildly thickened. There is no evidence of aortic regurgitation. There is no evidence of aortic stenosis. Mitral Valve: The mitral valve leaflets are mildly thickened. There is trace of mitral regurgitation. There is no evidence of mitral stenosis. Tricuspid Valve: There is mild tricuspid regurgitation. The right ventricular systolic pressure is calculated at 44 mmHg. There is evidence of mild pulmonary hypertension. Pulmonic Valve: There is trace pulmonic regurgitation. Pericardium: There is no pericardial effusion. Aorta: There is no dilatation of the ascending aorta. There is no dilatation of the aortic root. Venous: The inferior vena cava is dilated. Measurements Chambers 2D Name Value Normal Range IVSd (2D) 1 cm (0.6 - 1.1) LVPWd (2D) 1.01 cm (0.6 - 1.1) LVIDd (2D) 4.58 cm (3.7 - 5.6) LVIDs (2D) 3.17 cm (2 - 3.8) LV FS (2D) 30.93 % - EF Teichholz (2D) 58.66 % - Ao root diameter (2D) 2.94 cm (2 - 3.7) Volumes/Mass Name Value Normal Range LA ESV SP 4CH (A/L) 72.82 ml - LA ESV SP 2CH (A/L) 66.86 ml - LA ESV BP (A/L) 74.49 ml - LA ESV SP 4CH (MOD) 71.03 ml - LA ESV SP 2CH (MOD) 64.3 ml - LV EDV SP 4CH (MOD) 98.82 ml - LV ESV SP 4CH (MOD) 24.8 ml - EF SP 4CH (MOD) 74.9 % - LV EDV SP 2CH (MOD) 86.1 ml - LV ESV SP 2CH (MOD) 36.93 ml - EF SP 2CH (MOD) 57.11 % - LV EDV BP 94.4 ml - LV ESV BP 32.66 ml - BP EF (MOD) 65.4 % - Diastolic/Systolic Function Name Value Normal Range MV E-wave Vmax 1.04 m/sec - MV deceleration time 160.46 msec - MV A-wave Vmax 0.92 m/sec - MV E:A ratio 1.14 ratio - Aortic Valve Name Value Normal Range AV Vmax 2.12 m/sec - AV VTI 22.37 cm - AV peak gradient 17.95 mmHg - AV mean gradient 7.29 mmHg - LVOT diameter 2.01 cm - LVOT Vmax 1.8 m/sec - LVOT VTI 27.17 cm - LVOT peak gradient 12.91 mmHg - LVOT mean gradient 6.83 mmHg - SV LVOT 86.42 ml - ANITA (continuity Vmax) 2.7 cm2 - ANITA (continuity VTI) 3.86 cm2 - Ascending Ao 3.18 cm - Tricuspid Valve Name Value Normal Range TV E-wave Vmax 0.88 m/sec - TR Vmax 3.01 m/sec - TR peak gradient 36.27 mmHg - RAP 8 mmHg - RVSP 44 mmHg - IVC diameter 2.65 cm (1.2 - 2.3) Pulmonic Valve/Qp:Qs Name Value Normal Range PV Vmax 1.22 m/sec - PV peak gradient 5.91 mmHg - RVOT Vmax 0.87 m/sec - RVOT VTI 13.32 cm - RVOT peak gradient 3 mmHg - PV acceleration time 110.37 msec - [place]/IV: Voiding Method External Female Catheter IV Catheter Type [Right Foot] INT / Saline Lock IV Catheter Type [Left Forearm Peripheral IV ] IV Catheter Type [Left Wrist] INT / Saline Lock IV Catheter Type [Right Hand] INT / Saline Lock IV Catheter Type [Right INT / Saline Lock Antecubital] IV Catheter Type [Right Upper Mid-line arm] IV Catheter Type [Left Triple Lumen Cath Internal Jugular] IV Catheter Type [Left Hand] Peripheral IV IV Catheter Type [Left Peripheral IV Antecubital] Active Medications - Current Medications Current Medications: Generic Name Dose Route Start Last Admin Trade Name Freq PRN Reason Stop Dose Admin Acetaminophen 650 mg 10/05/20 16:34 12/22/20 12:36 Acetaminophen 325 Mg/10.15 Ml Oral Liqd Unit Dose FEEDTUBE 650 mg Q6H PRN Administration Non Cardiac Pain or Temp>100.5 Albuterol 2.5 mg 11/05/20 13:03 11/06/20 13:04 Albuterol 2.5 Mg/3 Ml Nebu IH 2.5 mg Q4HRT PRN Administration Shortness Of Breath Lipase/Protease/Amylase 1 each 10/05/20 11:09 Lipase 10,500/Protease 25,000/Amylase 43,750 (Units) Dr Barakat FEEDTUBE PRN PRN For Clogged Feeding Tube Enoxaparin Sodium 40 mg 10/22/20 10:00 12/23/20 10:14 Enoxaparin 40 Mg/0.4 Ml Inj SUB-Q 40 mg DAILY ERINN Administration Protocol Famotidine 20 mg 10/07/20 10:00 12/23/20 10:15 Famotidine 20 Mg Tab PO 20 mg BID ERINN Administration Furosemide 40 mg 10/17/20 10:00 12/23/20 10:14 Furosemide 40 Mg Tab PO 40 mg QDAY ERINN Administration Hydralazine HCl 20 mg 10/07/20 11:49 10/17/20 07:20 Hydralazine 20 Mg/1 Ml Inj IV 20 mg Q6H PRN Administration SBP >170 Dextrose 1,000 mls @ 42 mls/hr 12/15/20 11:00 12/21/20 17:00 D5w IV 42 mls/hr DIRECT ERINN Administration Simple Syrup 15 ml 10/05/20 11:09 Simple Syrup 15 Ml FEEDTUBE PRN PRN Hypoglycemia Simple Syrup 30 ml 10/05/20 11:09 Simple Syrup 15 Ml FEEDTUBE PRN PRN Hypoglycemia Sodium Bicarbonate 325 mg 10/05/20 11:09 12/16/20 08:19 Sodium Bicarbonate 325 Mg Tab FEEDTUBE 325 mg PRN PRN Administration For Clogged Feeding Tube Nutrition/Malnutrition Assess - Dietary Evaluation Nutrition/Malnutrition Findings: Nutrition Notes Start: 10/04/20 11:13 Freq: Status: Active Protocol: Document 12/21/20 11:40 (Rec: 12/21/20 11:44 [email or web address]) Nutrition Notes Initial or Follow up Reassessment Current Diagnosis Respiratory Failure Other Pertinent Diagnosis C-Diff, Cardiac arrest, s/p c- section and supracervical hysterectomy, Brain Current Diet Jevity 1.2 at 60 mL/hr Labs/Tests 12/18: Na 150 BUN 20 Pertinent Medications Lasix Height 5 ft 8 in Weight 93.1 kg [place] Body Weight (kg) 63.63 BMI 31.1 Weight Status Obese Subjective/Other Information FU for TF tolerance. Pt with TF off, per RN, due to patients posistion. RN to restart when she turns pt again. Percent of energy/protein needs met: 0%/0% Burn Absent Trauma Absent GI Symptoms None Food Allergy Yes Current % PO Negligible Minimum of two criteria Yes Interpretation of Weight Loss (severe) >2% in 1 week Fluid Accumulation Mild (non-severe) #2 Nutrition Diagnosis Malnutrition Diagnosis Progress(for reassessment Continues documentation) #1 Nutrition Diagnosis Inadequate oral intake Diagnosis Progress(for reassessment Continues documentation) Is patient on ventilator? No Is Patient Ambulatory and/or Out of Bed No REE-([facility]-confined to bed) 2028.356 Kcal/Kg value to use for calculation 19 Approximate Energy Requirements Using 1769 kcal/Kg Calculation Used for Recommendations Kcal/kg Additional Notes PRO needs: 65-81 (0.8-1 g/kg AdBW 81kg) Fluid needs: 1 mL/kcal or per MD Nutrition Intervention Change Diet Order: Continue TF Nutrition Support: Jevity 1.2 at 60ml/hr. Flush 100ml q4h. Flush 250 ml q4h for Hypernatremia. Once hypernatremia is resolved, flush 100 q4h. Kcal 1,728 Protein (gm) 80 Fluid (mL) 1,162 Goal #1 TF tolerance Goal #2 Meet at least 75% of energy and protein needs via TF Anticipated Discharge Needs: Unable to determine at this time Follow-Up By: 12/25/20 Additional Comments FU for stable TF and Na labs
[2020-12-23] MEDS: METOPROLOL TARTRATE 25 MG TAB PO SCH ×2 (14:40→23:15)
[2020-12-23] MEDS: ACETAMINOPHEN 325 MG/10.15 ML ORAL LIQD UNIT DOSE FEEDTUBE PRN (23:14)
[2020-12-24] MEDS: FUROSEMIDE 20 MG TAB PO SCH (09:22)
[2020-12-24] MEDS: METOPROLOL TARTRATE 25 MG TAB PO SCH (09:23)
[2020-12-24] MEDS: ENOXAPARIN 40 MG/0.4 ML INJ SUB-Q SCH (09:23)
[2020-12-24] MEDS: FAMOTIDINE 20 MG TAB PO SCH (09:23)
--- NOTE | 2020-12-24 12:39 | Progress Note ---
Assessment and Plan Assessment and plan: Eclampsia/HELLP Syndrome, ADOLPH, DIC; s/p , s/p supracervical hyst 30 year old -Irish female CHE 10/25/20 at 36w5d who presents with seizures in triage on 10/02/20. Pt was not able to provide history but per pt's , she presented to the hospital to return a 24 hour urine specimen for analysis. She then suddenly reported that she did not feel good. She was taken to labor and delivery and shortly after arrival, she began seizing. During this time, a code met was called because the patient became hypoxic. She was then noted to be without a pulse. Chest compressions were started immediately, and the patient was emergently taken to the operating room for delivery of the fetus. Off note, This patient has had care at [facility] with comanagement by [facility] since 11 wks complicated by ADHD, morbid obesity, generalized anxiety disorder, panic attacks, chronic narcotic use, fibromyalgia, GERD, Irritable Bowel Syndrome, Migraines, h/o endometrial ablation and ovarian vein embolization, genital herpes, insomnia, LGA fetus, nausea and vomiting, polyhydramnios, quad screen positive for Down's Syndrome, and previous x 3. She is GBS negative. -- Sepsis with presumed Pneumonia Teated with iv abx, follow Cx -Completed cefepime course 5 days on 10/09/2020 -Check MRSA culture -Start vancomycin p.o. empirically for C. difficile total 10 days, given diarrhea and worsening leukocytosis, --Acute respiratory failure with hypoxia Patient extubated. --DIC (disseminated intravascular coagulation) vs HELLP syndrome Has anemia,thrombocytopenia and elevated liver enzymes Patient received multiple units of RBCs, FFP's, cryo at present not requiring transfusion. Has resolved H&H is 12 and 37. Hemoglobin hematocrit remained stable pending today. Hematology/oncology recommendations appreciated Continue to trend fibrinogen and INR Hemoglobin hematocrit remains stable today. Follow platelets transfuse as necessary. --Possible Eclampsia/HELLP Syndrome Patient presented with seizure-->hypoxia-->urgent C section-->hysterectomy for severe bleeding/DIC developed severe anemia-->received RBC, plt, FFP, cryo was on max pressors-->now off pressors still on vent, on sedation tracheostomy. 50% now. Hematology following --s/p Cardiac arrest x2 on admission and on 10/07 ACLS protocol followed by revival Echo showed preserved Ef --Shock-resolved now awaiting placement s/p pressor support Likely hypovolemic. on empirical antibiotics for possible sepsis. Continue to monitor blood pressure closely Trend H&H repeated H&H today stable not requiring transfusion. -- Hypernatremia --Lactic acidosis also resolving. As a result of poor organ perfusion and possible sepsis Continue IV hydration. Lactic acid is trending down Nephrology on board Overall prognosis extremely poor. --ADOLPH-resolved As a result of hypoperfusion and shock Continue IV hydration Cr stable, will follow up in the a.m. has been hemodynamically stable overall prognosis poor Even more quality of life extremely poor --DVT prophylaxis Patient presented with DIC No anticoagulants UTI -Was not present on admission -Diagnosed on 12/10/2020 Last day of Rocephin. 11:30: Pt brought to L&D triage for evaluation of possible labor. Pt accompanied by her spouse. Pt spouse poor historian; unable to obtain history- allergies at this time. Pt taken from registration to triage area via WC. Pt unresponsive, actively seizing with snorous respirations. neonatal social worker, Kassy, called and requesting assistance. 11:35: Multiple staff at bedside. Pt 02 sat 67% on nonrebreather, unable to read BP at this time. Yifan Theodore CRNA, at bedside for intubation and assistance with IV insertion. INT attempt by multiple RNs unsuccessful at this time. 11:42: Pt being bagged by KORIN, 02% 79%. No pulse palpated, compressions started at this time; bharati young called and Dr. Newberry preparing OR for emergent c/s. 11:44: Continued compressions on stretcher while transporting pt to OR 1. Pt being bagged with jaw thrust manuever in place by KORIN Stringer student. 11:45: Arrival to OR 1. Dr. Newberry and Dr. Portillo present for emergent c/s. Code team arrived for continued care. patient revived and c/s done Patient has been bleeding from C/s site followed by supracervical hysterectomy for severe bleeding Patient transfused multiple units of PRBC, Patient in DIC. Transferred to the ICU 10/03. Patient seen and examined at bedside this morning. Patient is nonresponsive and mechanically ventilated. On pressors. Labs reviewed-has leukocytosis, anemia, thrombocytopenia, ADOLPH and lactic acidosis. Started on IV antibiotics to cover possible sepsis secondary to DIC. Hematology oncology recommendations appreciated-needs additional cryoprecipitate and FFP. Monitor D-dimer, fibrinogen and frequent labs. Nephrology consulted for lactic acidosis and ADOLPH. 10/04. Remains mechanically ventilated. Kevin antibiotics. Labs shows improved acidosis - lactic acid 3.5. Hb drop noted. Getting transfused 2 units PRBCs. Platelet count is ~40k. Continue to monitor labs closely. Critical care team on board. 10/05; xray reviewed, concerning for multifocal infilrate, likely underlying Pneumonia, will add ID consult to assist with management of this critically ill patient, start tube feed, closely monitor renal system 10/06: Resumed care, remains on mechanical ventilation. No active bleeding, H&H stable. Continue to monitor CBC and BMP. Continue IV antibiotic for underlying pneumonia. Follow critical care and ID recommendation. 10/07: Remains on mechanical ventilation. No active bleeding, H&H stable. Critical care following, wean off ventilation as tolerated. 10/08: Patient had another cardiac arrest last night. Remains on mechanical ventilation, update family. Continue supportive care -poor prognosis 10/09: Called patient mother and discussed about patient care and management. Answered all question to best of my knowledge and family satisfaction. Patient remains on mechanical ventilation, cardiac arrest x2 so far. Critically sick, poor prognosis 10/10: remains on mechanical ventilation. h/h stable, no active bleeding. monitor CBC/BMP 10/11: WBC trended up with diarrhea, started on vancomycin po. remains on MV, off pressor, tolerating TF 10/12: remains on MV, off pressor, tolerating TF. called family for update but unable to reach, could not leave message as it was full. cont supportive care, wean off vent as tolerated. 10/13/2020; patient is on mechanical ventilation, tolerating tube feeding. Patient has labored breathing. Neuro was consulted and recommend MRI. Patient is on Precedex. Rectal tube in place. 10/14/2020; patient is on mechanical ventilation, Precedex. Patient had fever and blood culture ordered. Patient is on IV vancomycin per ID recommendation. Neuro consulted and recommend MRI. Continue to monitor. Prognosis is guarded. 10/15/2020; patient is on mechanical ventilation, Precedex. Patient had fever and blood culture ordered. Patient is on IV vancomycin per ID recommendation. Neuro consulted and recommend MRI. Continue to monitor. Prognosis is guarded. 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 12/06/20; anoxic brain injury. Awaiting placement. 12/07/2020; anoxic brain injury, awaiting placement. 12/09/2020; anoxic brain injury, awaiting placement. 12/10/2020; patient had episodes of fever overnight. CBC, BMP, blood culture, UA and chest x-ray ordered, will follow and manage accordingly. Urinalysis is suggestive of UTI and I put the patient on ceftriaxone, order urine culture. Chest x-ray is normal. 12/11/2020; patient is on ceftriaxone day 2 for UTI. We will continue to follow urine culture. 12/12/2020. Day #3 of Rocephin for UTI. We will continue for 2 more days while she is here. Present UTI. 12/13/2020. Day #4 of Rocephin for UTI. Patient remains on 50% with tracheostomy. Remains unresponsive with evidence of anoxic encephalopathy unable to make needs known. 12/14/2020. Day #5 of Rocephin for UTI completed today. Remains encephalopathic unable to make needs known. Remains on 50% unable to decrease oxygen via tracheostomy. Overall prognosis remains extremely poor. 3/2: Continue to monitor. Stop and monitor antibiotics at this time. Continue to wean oxygen as tolerated. Wean oxygen as tolerated. Case management working on placement. 3: Continue supportive care aspiration precautions. Awaiting placement discussion. Monitor fever curve. Prognosis remains poor no evidence of neurological recovery as of today 3/4: Continue supportive care, check labs and chest xray. Still monitor off antibiotics. Monitor Sodium level 12/18: Patient remains with intermittent low grade fever, reviewed EEG from [facility] again, consistent for Ischemic Hypoxic Encephalopathy, patient with decorticating posturing type presentation. Will discuss with leak inspector to optimize diet so we can discontinue D5. CXR with no abnormality. Discussed extensively with the nursing staff at bedside CXR IMPRESSION: 1. No acute findings. 12/19: No clinical change 12/20: No clinical change, now off abx, monitor, discussed her medications with our pharmacist I believe that her posture and rigidity is likely from underlying anoxic encephalopathy. Continue to monitor and await placement decision. Continue aggressive suctioning. Plan discussed in detail with the nursing staff 12/21: Continue supportive care. Will give 500 cc bolus of fluid today to replace insensible losses. Tachycardia appears to be improving. Blood pressure precludes adjusting cardiac meds. Still awaiting placement from case management. Plan discussed in detail with the nursing staff 12/22. Continue support supportive care. Tracheostomy and PEG in place. Remains nonresponsive. Awaiting placement. 12/23. Continue support supportive care. Tracheostomy and PEG in place. Remains nonresponsive. Awaiting placement. Remains tachycardic. Decrease dose of lasix. Will try low dose metoprolol. Monitor BP closely 12/23. Continue support supportive care. Tracheostomy and PEG in place. Remains nonresponsive. Awaiting placement. Heart rate slightly better. Continue to monitor BP closely History Interval history: Trach in place Not responsive to calls Hospitalist Physical - Physical exam Narrative exam: VITAL SIGNS: Reviewed. GENERAL: Trach in place HEAD: No signs of head trauma. EYES: Pupils are equal. NECK: No adenopathy, no JVD. CHEST: Rales posteriorly CARDIAC: normal S1 and S2, without murmurs, gallops, or rubs. ABDOMEN: Soft, non tender and non distended. No rebound or guarding, and no masses palpated. Bowel Sounds normal MUSCULOSKELETAL: No edema NEUROLOGIC EXAM: Not responsive SKIN: No obvious lesions - Constitutional Vitals: Temp Pulse Resp BP Pulse Ox 98.1 F 104 H 14 112/74 98 12/24/20 12:00 12/24/20 07:00 12/24/20 07:00 12/24/20 07:00 12/24/20 08:37 HEART Score - HEART Score Age: < 45 Risk factors: 1-2 risk factors - Critical Actions Critical Actions: >7 pts:50-65% risk of adverse cardiac event. Early invasive measures Results - Labs CBC & Chem 7: 12/18/20 04:57 12/22/20 11:03 Labs: Laboratory Last Values WBC 8.6 K/mm3 (4.5-11.0) 12/18/20 04:57 RBC 5.16 M/mm3 (3.65-5.03) H 12/18/20 04:57 Hgb 13.0 gm/dl (10.1-14.3) 12/18/20 04:57 Hgb Comment See scanned result 10/04/20 Unknown Hct 41.6 % (30.3-42.9) 12/18/20 04:57 MCV 81 fl (79-97) 12/18/20 04:57 MCH 25 pg (28-32) L 12/18/20 04:57 MCHC 31 % (30-34) 12/18/20 04:57 RDW 14.5 % (13.2-15.2) 12/18/20 04:57 Plt Count 258 K/mm3 (140-440) 12/18/20 04:57 Lymph % (Auto) 24.1 % (13.4-35.0) 12/14/20 10:32 [place] % (Auto) 7.8 % (0.0-7.3) H 12/14/20 10:32 Eos % (Auto) 1.5 % (0.0-4.3) 12/14/20 10:32 Baso % (Auto) 0.3 % (0.0-1.8) 12/14/20 10:32 Lymph # (Auto) 2.5 K/mm3 (1.2-5.4) 12/14/20 10:32 [place] # (Auto) 0.8 K/mm3 (0.0-0.8) 12/14/20 10:32 Eos # (Auto) 0.2 K/mm3 (0.0-0.4) 12/14/20 10:32 Baso # (Auto) 0.0 K/mm3 (0.0-0.1) 12/14/20 10:32 Add Manual Diff Complete 12/10/20 09:37 Total Counted 100 12/10/20 09:37 Seg Neutrophils % 66.3 % (40.0-70.0) 12/14/20 10:32 Seg Neuts % (Manual) 81.0 % (40.0-70.0) H 12/10/20 09:37 Band Neutrophils % 2.0 % 10/15/20 05:50 Lymphocytes % (Manual) 17.0 % (13.4-35.0) 12/10/20 09:37 Reactive Lymphs % (Man) 1.0 % 10/02/20 12:18 Monocytes % (Manual) 2.0 % (0.0-7.3) 12/10/20 09:37 Eosinophils % (Manual) 1.0 % (0.0-4.3) 10/29/20 07:56 Myelocytes % 2.0 % 10/02/20 13:05 Metamyelocytes % 1.0 % 10/14/20 04:00 Nucleated RBC % Not Reportable 12/10/20 09:37 Seg Neutrophils # 6.8 K/mm3 (1.8-7.7) 12/14/20 10:32 Seg Neutrophils # Man 10.1 K/mm3 (1.8-7.7) H 12/10/20 09:37 Band Neutrophils # 0.0 K/mm3 12/10/20 09:37 Lymphocytes # (Manual) 2.1 K/mm3 (1.2-5.4) 12/10/20 09:37 Abs React Lymphs (Man) 0.0 K/mm3 12/10/20 09:37 Monocytes # (Manual) 0.3 K/mm3 (0.0-0.8) 12/10/20 09:37 Eosinophils # (Manual) 0.0 K/mm3 (0.0-0.4) 12/10/20 09:37 Basophils # (Manual) 0.0 K/mm3 (0.0-0.1) 12/10/20 09:37 Metamyelocytes # 0.0 K/mm3 12/10/20 09:37 Myelocytes # 0.0 K/mm3 12/10/20 09:37 Promyelocytes # 0.0 K/mm3 12/10/20 09:37 Blast Cells # 0.0 K/mm3 12/10/20 09:37 WBC Morphology Not Reportable 12/10/20 09:37 Hypersegmented Neuts Not Reportable 12/10/20 09:37 Hyposegmented Neuts Not Reportable 12/10/20 09:37 Hypogranular Neuts Not Reportable 12/10/20 09:37 Smudge Cells Not Reportable 12/10/20 09:37 Toxic Granulation Not Reportable 12/10/20 09:37 Toxic Vacuolation Not Reportable 12/10/20 09:37 Dohle Bodies Not Reportable 12/10/20 09:37 Pelger-Huet Anomaly Not Reportable 12/10/20 09:37 Ester Rods Not Reportable 12/10/20 09:37 Platelet Estimate Consistent w auto 12/10/20 09:37 Clumped Platelets Not Reportable 12/10/20 09:37 Plt Clumps, EDTA Not Reportable 12/10/20 09:37 Large Platelets Not Reportable 12/10/20 09:37 Giant Platelets Not Reportable 12/10/20 09:37 Platelet Satelliting Not Reportable 12/10/20 09:37 Plt Morphology Comment Not Reportable 12/10/20 09:37 RBC Morphology Normal 12/10/20 09:37 Dimorphic RBCs Not Reportable 12/10/20 09:37 Polychromasia Not Reportable 12/10/20 09:37 Hypochromasia 1+ 12/10/20 09:37 Poikilocytosis Not Reportable 12/10/20 09:37 Anisocytosis Not Reportable 12/10/20 09:37 Microcytosis Not Reportable 12/10/20 09:37 Macrocytosis Not Reportable 12/10/20 09:37 Spherocytes Not Reportable 12/10/20 09:37 Pappenheimer Bodies Not Reportable 12/10/20 09:37 Sickle Cells Not Reportable 12/10/20 09:37 Target Cells Not Reportable 12/10/20 09:37 Tear Drop Cells Not Reportable 12/10/20 09:37 Ovalocytes Not Reportable 12/10/20 09:37 Stomatocytes Few 10/14/20 04:00 Helmet Cells Not Reportable 12/10/20 09:37 Burk-[place] Bodies Not Reportable 12/10/20 09:37 [place] Rings Not Reportable 12/10/20 09:37 Antoine Cells Not Reportable 12/10/20 09:37 Bite Cells Not Reportable 12/10/20 09:37 Crenated Cell Not Reportable 12/10/20 09:37 Elliptocytes Not Reportable 12/10/20 09:37 Acanthocytes (Spur) Not Reportable 12/10/20 09:37 Rouleaux Not Reportable 12/10/20 09:37 Hemoglobin C Crystals Not Reportable 12/10/20 09:37 Schistocytes Not Reportable 12/10/20 09:37 Malaria parasites Not Reportable 12/10/20 09:37 Sickle Cell Solubility See scanned result 10/04/20 Unknown Hemoglobin A See scanned result 10/04/20 Unknown Hemoglobin A2 See scanned result 10/04/20 Unknown Hemoglobin A2 Prime See scanned result 10/04/20 Unknown Hemoglobin C See scanned result 10/04/20 Unknown Hemoglobin D See scanned result 10/04/20 Unknown Hemoglobin E See scanned result 10/04/20 Unknown Hgb F Diffential Stain See scanned result 10/04/20 Unknown Hemoglobin F Quant See scanned result 10/04/20 Unknown Hemoglobin G See scanned result 10/04/20 Unknown Hemoglobin S See scanned result 10/04/20 Unknown Hemoglobin [place] See scanned result 10/04/20 Unknown Hemoglobin [place] See scanned result 10/04/20 Unknown Hemoglobin Analilia See scanned result 10/04/20 Unknown Variant Hemoglobin See scanned result 10/04/20 Unknown Abnorm Hgb IEF Confirm See scanned result 10/04/20 Unknown Hemoglobin Interpret See scanned result 10/04/20 Unknown Hemoglobinopathy Note See scanned result 10/04/20 Unknown Sharad Bodies Not Reportable 12/10/20 09:37 Hem Pathologist Commnt No 12/10/20 09:37 PT 13.6 Sec. (12.2-14.9) 10/21/20 13:54 INR 1.06 (0.87-1.13) 10/21/20 13:54 APTT 31.6 Sec. (24.2-36.6) 10/03/20 00:40 Fibrinogen 336 mg/dl (211-480) 10/04/20 10:00 D-Dimer 1974.47 ng/mlDDU (0-234) H 11/11/20 13:50 ABG pH 7.459 pH Units (7.350-7.450) H 10/26/20 10:30 POC ABG pCO2 20.7 mmHg (32.0-48.0) L 10/13/20 07:18 ABG pCO2 32.4 mm Hg 10/26/20 10:30 POC ABG pO2 137.9 mmHg (83-108) H 10/13/20 07:18 ABG pO2 112.2 mm Hg (80.0-90.0) H 10/26/20 10:30 POC ABG HCO3 14.8 10/13/20 07:18 ABG HCO3 22.5 mmol/L (20.0-26.0) 10/26/20 10:30 ABG O2 Saturation 98.2 % (95.0-99.0) 10/26/20 10:30 ABG O2 Content 18.5 (0.0-44) 10/26/20 10:30 POC ABG Base Excess -6.9 10/13/20 07:18 ABG Base Excess -0.6 mmol/L (-2.0-3.0) 10/26/20 10:30 ABG Hemoglobin 13.5 gm/dl (12.0-16.0) 10/26/20 10:30 ABG Oxyhemoglobin 98.3 (94-98) H 10/13/20 07:18 ABG Carboxyhemoglobin 1.3 % (0.0-5.0) 10/26/20 10:30 ABG Methemoglobin 0.5 % (0.0-1.5) 10/26/20 10:30 ABG Sodium 135.9 mmol/L (136.0-145.0) L 10/13/20 07:18 ABG Potassium 3.7 mmol/L (3.40-4.50) 10/13/20 07:18 ABG Chloride 111.0 mmol/L (98-107) H 10/13/20 07:18 ABG Glucose 109 mg/dL (65-95) H 10/13/20 07:18 VBG pH 6.949 (7.320-7.420) L* 10/02/20 Unknown Oxyhemoglobin 96.5 % (95.0-99.0) 10/26/20 10:30 Carboxyhemoglobin 0.3 (0.5-1.5) L 10/13/20 07:18 FiO2 25 % 10/26/20 10:30 Sodium 138 mmol/L (137-145) D 12/22/20 11:03 Potassium 3.9 mmol/L (3.6-5.0) 12/22/20 11:03 Chloride 101.0 mmol/L (98-107) 12/22/20 11:03 Carbon Dioxide 25 mmol/L (22-30) 12/22/20 11:03 Anion Gap 16 mmol/L 12/22/20 11:03 BUN 10 mg/dL (7-17) 12/22/20 11:03 Creatinine 0.5 mg/dL (0.6-1.2) L 12/22/20 11:03 Estimated GFR > 60 ml/min 12/22/20 11:03 BUN/Creatinine Ratio 20 % 12/22/20 11:03 Glucose 110 mg/dL (65-100) H 12/22/20 11:03 POC Glucose 92 mg/dL (70-105) 12/24/20 12:02 Random Insulin 43.2 uIU/mL (<=19.6) H 11/02/20 19:19 Proinsulin See scanned result 11/02/20 19:19 C-Peptide 6.23 ng/mL (0.80-3.85) H 11/02/20 19:19 Lactic Acid 1.90 mmol/L (0.7-2.0) 10/04/20 22:00 Uric Acid 7.5 mg/dL (3.5-7.6) 10/02/20 13:05 Calcium 9.5 mg/dL (8.4-10.2) 12/22/20 11:03 Ionized Calcium 4.4 mg/dL (4.8-5.6) L 10/07/20 21:00 Phosphorus 4.60 mg/dL (2.5-4.5) H 11/13/20 10:05 Magnesium 2.10 mg/dL (1.7-2.3) 11/13/20 10:05 Total Bilirubin 0.40 mg/dL (0.1-1.2) 12/22/20 11:03 AST 45 units/L (5-40) H 12/22/20 11:03 ALT 33 units/L (7-56) 12/22/20 11:03 Alkaline Phosphatase 100 units/L (35-129) 12/22/20 11:03 Lactate Dehydrogenase 769 units/L (91-180) H 10/02/20 13:05 C-Reactive Protein 0.70 mg/dL (0.00-1.30) 11/11/20 13:50 NT-Pro-B Natriuret Pep 2788 pg/mL (0-450) H 10/04/20 10:00 Total Protein 7.5 g/dL (6.3-8.2) 12/22/20 11:03 Albumin 3.8 g/dL (3.9-5) L 12/22/20 11:03 Albumin/Globulin Ratio 1.0 % 12/22/20 11:03 Procalcitonin < 0.05 ng/mL (<0.15) 11/11/20 13:50 Arterial Blood Glucose 109 mg/dL (65-95) H 10/13/20 07:18 Arterial Blood Ionized Calcium 4.6 mg/dL (4.6-5.3) 10/13/20 07:18 Urine Color Kelsey (Yellow) 12/10/20 09:25 Urine Turbidity Cloudy (Clear) 12/10/20 09:25 Urine pH 7.0 (5.0-7.0) 12/10/20 09:25 Ur Specific [place] 1.027 (1.003-1.030) 12/10/20 09:25 Urine Protein 100 mg/dl mg/dL (Negative) 12/10/20 09:25 Urine Glucose (UA) Neg mg/dL (Negative) 12/10/20 09:25 Urine Ketones Neg mg/dL (Negative) 12/10/20 09:25 Urine Blood Sm (Negative) 12/10/20 09:25 Urine Nitrite Neg (Negative) 12/10/20 09:25 Urine Bilirubin Neg (Negative) 12/10/20 09:25 Urine Urobilinogen 4.0 mg/dL (<2.0) 12/10/20 09:25 Ur Leukocyte Esterase Mod (Negative) 12/10/20 09:25 Urine WBC (Auto) 50.0 /HPF (0.0-6.0) H 12/10/20 09:25 Urine RBC (Auto) 27.0 /HPF (0.0-6.0) 12/10/20 09:25 U Epithel Cells (Auto) 8.0 /HPF (0-13.0) 12/10/20 09:25 Urine Bacteria (Auto) 4+ /HPF (Negative) 11/11/20 13:50 Urine WBC Clumps 3+ /HPF 11/11/20 13:50 Calcium Oxalate Crystal Few 11/11/20 13:50 Urine Mucus Few /HPF 11/11/20 13:50 Urine Yeast (Budding) 2+ /HPF 12/10/20 09:25 Vancomycin Trough 12.6 ug/mL (5.0-20.0) 10/21/20 13:54 Random Vancomycin 10.7 ug/mL (0-40.0) 10/16/20 13:09 Phenytoin 5.7 ug/mL (10.0-20.0) L 10/13/20 07:00 C. difficile Tox (PCR) Positive (Negative) 10/16/20 10:22 Coronavirus (PCR) Negative (Negative) 10/08/20 14:15 Blood Type O POSITIVE 10/02/20 12:50 Antibody Screen Negative 10/02/20 12:50 Crossmatch See Detail 10/02/20 12:50 - Diagnostic Impressions Diagnostic Impressions: Echocardiogram 10/03/20 13:42 Transthoracic Echocardiogram Indication: S/P Cardiac Arrest R/O Cardiomyopathy BP: 133/71 Conclusions *Global left ventricular systolic function is normal. *The estimated ejection fraction is 60-65%. *There is trace of mitral regurgitation. *The right 0heart chambers are both slightly dilated. *There is mild tricuspid regurgitation. *There is mild-moderate pulmonary hypertension. *The right ventricular systolic pressure is calculated at 44 mmHg. *The study quality is technically difficult. Findings Procedure Info: The study quality is technically difficult. The study is technically limited due to patient body habitus. The study was technically limited due to the patient's inability to lay in the left lateral decubitus position. Left Ventricle: The left ventricular chamber size is normal. There is no left ventricular hypertrophy. Global left ventricular systolic function is normal. The estimated ejection fraction is 60-65%. Left Atrium: The left atrial chamber size is normal. Right Ventricle: The right ventricle is slightly dilated. Right Atrium: The right atrium is mildly dilated. Aortic Valve: The aortic valve leaflets are mildly thickened. There is no evidence of aortic regurgitation. There is no evidence of aortic stenosis. Mitral Valve: The mitral valve leaflets are mildly thickened. There is trace of mitral regurgitation. There is no evidence of mitral stenosis. Tricuspid Valve: There is mild tricuspid regurgitation. The right ventricular systolic pressure is calculated at 44 mmHg. There is evidence of mild pulmonary hypertension. Pulmonic Valve: There is trace pulmonic regurgitation. Pericardium: There is no pericardial effusion. Aorta: There is no dilatation of the ascending aorta. There is no dilatation of the aortic root. Venous: The inferior vena cava is dilated. Measurements Chambers 2D Name Value Normal Range IVSd (2D) 1 cm (0.6 - 1.1) LVPWd (2D) 1.01 cm (0.6 - 1.1) LVIDd (2D) 4.58 cm (3.7 - 5.6) LVIDs (2D) 3.17 cm (2 - 3.8) LV FS (2D) 30.93 % - EF Teichholz (2D) 58.66 % - Ao root diameter (2D) 2.94 cm (2 - 3.7) Volumes/Mass Name Value Normal Range LA ESV SP 4CH (A/L) 72.82 ml - LA ESV SP 2CH (A/L) 66.86 ml - LA ESV BP (A/L) 74.49 ml - LA ESV SP 4CH (MOD) 71.03 ml - LA ESV SP 2CH (MOD) 64.3 ml - LV EDV SP 4CH (MOD) 98.82 ml - LV ESV SP 4CH (MOD) 24.8 ml - EF SP 4CH (MOD) 74.9 % - LV EDV SP 2CH (MOD) 86.1 ml - LV ESV SP 2CH (MOD) 36.93 ml - EF SP 2CH (MOD) 57.11 % - LV EDV BP 94.4 ml - LV ESV BP 32.66 ml - BP EF (MOD) 65.4 % - Diastolic/Systolic Function Name Value Normal Range MV E-wave Vmax 1.04 m/sec - MV deceleration time 160.46 msec - MV A-wave Vmax 0.92 m/sec - MV E:A ratio 1.14 ratio - Aortic Valve Name Value Normal Range AV Vmax 2.12 m/sec - AV VTI 22.37 cm - AV peak gradient 17.95 mmHg - AV mean gradient 7.29 mmHg - LVOT diameter 2.01 cm - LVOT Vmax 1.8 m/sec - LVOT VTI 27.17 cm - LVOT peak gradient 12.91 mmHg - LVOT mean gradient 6.83 mmHg - SV LVOT 86.42 ml - ANITA (continuity Vmax) 2.7 cm2 - ANITA (continuity VTI) 3.86 cm2 - Ascending Ao 3.18 cm - Tricuspid Valve Name Value Normal Range TV E-wave Vmax 0.88 m/sec - TR Vmax 3.01 m/sec - TR peak gradient 36.27 mmHg - RAP 8 mmHg - RVSP 44 mmHg - IVC diameter 2.65 cm (1.2 - 2.3) Pulmonic Valve/Qp:Qs Name Value Normal Range PV Vmax 1.22 m/sec - PV peak gradient 5.91 mmHg - RVOT Vmax 0.87 m/sec - RVOT VTI 13.32 cm - RVOT peak gradient 3 mmHg - PV acceleration time 110.37 msec - [place]/IV: Voiding Method External Female Catheter IV Catheter Type [Right Foot] INT / Saline Lock IV Catheter Type [Left Forearm Peripheral IV ] IV Catheter Type [Left Wrist] INT / Saline Lock IV Catheter Type [Right Hand] INT / Saline Lock IV Catheter Type [Right INT / Saline Lock Antecubital] IV Catheter Type [Right Upper Mid-line arm] IV Catheter Type [Left Triple Lumen Cath Internal Jugular] IV Catheter Type [Left Hand] Peripheral IV IV Catheter Type [Left Peripheral IV Antecubital] Active Medications - Current Medications Current Medications: Generic Name Dose Route Start Last Admin Trade Name Freq PRN Reason Stop Dose Admin Acetaminophen 650 mg 10/05/20 16:34 12/23/20 23:14 Acetaminophen 325 Mg/10.15 Ml Oral Liqd Unit Dose FEEDTUBE 650 mg Q6H PRN Administration Non Cardiac Pain or Temp>100.5 Albuterol 2.5 mg 11/05/20 13:03 11/06/20 13:04 Albuterol 2.5 Mg/3 Ml Nebu IH 2.5 mg Q4HRT PRN Administration Shortness Of Breath Lipase/Protease/Amylase 1 each 10/05/20 11:09 Lipase 10,500/Protease 25,000/Amylase 43,750 (Units) Dr Barakat FEEDTUBE PRN PRN For Clogged Feeding Tube Enoxaparin Sodium 40 mg 10/22/20 10:00 12/24/20 09:23 Enoxaparin 40 Mg/0.4 Ml Inj SUB-Q 40 mg DAILY ERINN Administration Protocol Famotidine 20 mg 10/07/20 10:00 12/24/20 09:23 Famotidine 20 Mg Tab PO 20 mg BID ERINN Administration Furosemide 20 mg 12/24/20 10:00 12/24/20 09:22 Furosemide 20 Mg Tab PO 20 mg QAM ERINN Administration Hydralazine HCl 20 mg 10/07/20 11:49 10/17/20 07:20 Hydralazine 20 Mg/1 Ml Inj IV 20 mg Q6H PRN Administration SBP >170 Metoprolol Tartrate 12.5 mg 12/23/20 13:00 12/24/20 09:23 Metoprolol Tartrate 25 Mg Tab PO 12.5 mg BID ERINN Administration Simple Syrup 15 ml 10/05/20 11:09 Simple Syrup 15 Ml FEEDTUBE PRN PRN Hypoglycemia Simple Syrup 30 ml 10/05/20 11:09 Simple Syrup 15 Ml FEEDTUBE PRN PRN Hypoglycemia Sodium Bicarbonate 325 mg 10/05/20 11:09 12/16/20 08:19 Sodium Bicarbonate 325 Mg Tab FEEDTUBE 325 mg PRN PRN Administration For Clogged Feeding Tube Nutrition/Malnutrition Assess - Dietary Evaluation Nutrition/Malnutrition Findings: Nutrition Notes Start: 10/04/20 11:13 Freq: Status: Active Protocol: Document 12/21/20 11:40 (Rec: 12/21/20 11:44 [email or web address]) Nutrition Notes Initial or Follow up Reassessment Current Diagnosis Respiratory Failure Other Pertinent Diagnosis C-Diff, Cardiac arrest, s/p c- section and supracervical hysterectomy, Brain Current Diet Jevity 1.2 at 60 mL/hr Labs/Tests 12/18: Na 150 BUN 20 Pertinent Medications Lasix Height 5 ft 8 in Weight 93.1 kg [place] Body Weight (kg) 63.63 BMI 31.1 Weight Status Obese Subjective/Other Information FU for TF tolerance. Pt with TF off, per RN, due to patients posistion. RN to restart when she turns pt again. Percent of energy/protein needs met: 0%/0% Burn Absent Trauma Absent GI Symptoms None Food Allergy Yes Current % PO Negligible Minimum of two criteria Yes Interpretation of Weight Loss (severe) >2% in 1 week Fluid Accumulation Mild (non-severe) #2 Nutrition Diagnosis Malnutrition Diagnosis Progress(for reassessment Continues documentation) #1 Nutrition Diagnosis Inadequate oral intake Diagnosis Progress(for reassessment Continues documentation) Is patient on ventilator? No Is Patient Ambulatory and/or Out of Bed No REE-([facility]confined to bed) 2028.356 Kcal/Kg value to use for calculation 19 Approximate Energy Requirements Using 1769 kcal/Kg Calculation Used for Recommendations Kcal/kg Additional Notes PRO needs: 65-81 (0.8-1 g/kg AdBW 81kg) Fluid needs: 1 mL/kcal or per MD Nutrition Intervention Change Diet Order: Continue TF Nutrition Support: Jevity 1.2 at 60ml/hr. Flush 100ml q4h. Flush 250 ml q4h for Hypernatremia. Once hypernatremia is resolved, flush 100 q4h. Kcal 1,728 Protein (gm) 80 Fluid (mL) 1,162 Goal #1 TF tolerance Goal #2 Meet at least 75% of energy and protein needs via TF Anticipated Discharge Needs: Unable to determine at this time Follow-Up By: 12/25/20 Additional Comments FU for stable TF and Na labs
[2020-12-24] MEDS: ACETAMINOPHEN 325 MG/10.15 ML ORAL LIQD UNIT DOSE FEEDTUBE PRN (21:12)
[2020-12-25] MEDS: FAMOTIDINE 20 MG TAB PO SCH ×3 (00:26→21:48)
[2020-12-25] MEDS: METOPROLOL TARTRATE 25 MG TAB PO SCH ×3 (01:16→21:48)
[2020-12-25] MEDS: ACETAMINOPHEN 325 MG/10.15 ML ORAL LIQD UNIT DOSE FEEDTUBE PRN (04:07)
--- NOTE | 2020-12-25 09:55 | Progress Note ---
Assessment and Plan Assessment and plan: Eclampsia/HELLP Syndrome, ADOLPH, DIC; s/p , s/p supracervical hyst 30 year old -[place] female CHE 10/25/20 at 36w5d who presents with seizures in triage on 10/02/20. Pt was not able to provide history but per pt's , she presented to the hospital to return a 24 hour urine specimen for analysis. She then suddenly reported that she did not feel good. She was taken to labor and delivery and shortly after arrival, she began seizing. During this time, a code met was called because the patient became hypoxic. She was then noted to be without a pulse. Chest compressions were started immediately, and the patient was emergently taken to the operating room for delivery of the fetus. Off note, This patient has had care at [facility] with comanagement by [facility] since 11 wks complicated by ADHD, morbid obesity, generalized anxiety disorder, panic attacks, chronic narcotic use, fibromyalgia, GERD, Irritable Bowel Syndrome, Migraines, h/o endometrial ablation and ovarian vein embolization, genital herpes, insomnia, LGA fetus, nausea and vomiting, polyhydramnios, quad screen positive for Down's Syndrome, and previous x 3. She is GBS negative. -- Sepsis with presumed Pneumonia Teated with iv abx, follow Cx -Completed cefepime course 5 days on 10/09/2020 -Check MRSA culture -Start vancomycin p.o. empirically for C. difficile total 10 days, given diarrhea and worsening leukocytosis, --Acute respiratory failure with hypoxia Patient extubated. --DIC (disseminated intravascular coagulation) vs HELLP syndrome Has anemia,thrombocytopenia and elevated liver enzymes Patient received multiple units of RBCs, FFP's, cryo at present not requiring transfusion. Has resolved H&H is 12 and 37. Hemoglobin hematocrit remained stable pending today. Hematology/oncology recommendations appreciated Continue to trend fibrinogen and INR Hemoglobin hematocrit remains stable today. Follow platelets transfuse as necessary. --Possible Eclampsia/HELLP Syndrome Patient presented with seizure-->hypoxia-->urgent C section-->hysterectomy for severe bleeding/DIC developed severe anemia-->received RBC, plt, FFP, cryo was on max pressors-->now off pressors still on vent, on sedation tracheostomy. 50% now. Hematology following --s/p Cardiac arrest x2 on admission and on 10/07 ACLS protocol followed by revival Echo showed preserved Ef --Shock-resolved now awaiting placement s/p pressor support Likely hypovolemic. on empirical antibiotics for possible sepsis. Continue to monitor blood pressure closely Trend H&H repeated H&H today stable not requiring transfusion. -- Hypernatremia --Lactic acidosis also resolving. As a result of poor organ perfusion and possible sepsis Continue IV hydration. Lactic acid is trending down Nephrology on board Overall prognosis extremely poor. --ADOLPH-resolved As a result of hypoperfusion and shock Continue IV hydration Cr stable, will follow up in the a.m. has been hemodynamically stable overall prognosis poor Even more quality of life extremely poor --DVT prophylaxis Patient presented with DIC No anticoagulants UTI -Was not present on admission -Diagnosed on 12/10/2020 Last day of Rocephin. 11:30: Pt brought to L&D triage for evaluation of possible labor. Pt accompanied by her spouse. Pt spouse poor historian; unable to obtain history- allergies at this time. Pt taken from registration to triage area via WC. Pt unresponsive, actively seizing with snorous respirations. autocad electrical designer, Kassy, called and requesting assistance. 11:35: Multiple staff at bedside. Pt 02 sat 67% on nonrebreather, unable to read BP at this time. Yifan Theodore CRNA, at bedside for intubation and assistance with IV insertion. INT attempt by multiple RNs unsuccessful at this time. 11:42: Pt being bagged by KORIN, 02% 79%. No pulse palpated, compressions started at this time; bharati young called and Dr. Newberry preparing OR for emergent c/s. 11:44: Continued compressions on stretcher while transporting pt to OR 1. Pt being bagged with jaw thrust manuever in place by KORIN Stringer student. 11:45: Arrival to OR 1. Dr. Newberry and Dr. Portillo present for emergent c/s. Code team arrived for continued care. patient revived and c/s done Patient has been bleeding from C/s site followed by supracervical hysterectomy for severe bleeding Patient transfused multiple units of PRBC, Patient in DIC. Transferred to the ICU 10/03. Patient seen and examined at bedside this morning. Patient is nonresponsive and mechanically ventilated. On pressors. Labs reviewed-has leukocytosis, anemia, thrombocytopenia, ADOLPH and lactic acidosis. Started on IV antibiotics to cover possible sepsis secondary to DIC. Hematology oncology recommendations appreciated-needs additional cryoprecipitate and FFP. Monitor D-dimer, fibrinogen and frequent labs. Nephrology consulted for lactic acidosis and ADOLPH. 10/04. Remains mechanically ventilated. Kevin antibiotics. Labs shows improved acidosis - lactic acid 3.5. Hb drop noted. Getting transfused 2 units PRBCs. Platelet count is ~40k. Continue to monitor labs closely. Critical care team on board. 10/05; xray reviewed, concerning for multifocal infilrate, likely underlying Pneumonia, will add ID consult to assist with management of this critically ill patient, start tube feed, closely monitor renal system 10/06: Resumed care, remains on mechanical ventilation. No active bleeding, H&H stable. Continue to monitor CBC and BMP. Continue IV antibiotic for underlying pneumonia. Follow critical care and ID recommendation. 10/07: Remains on mechanical ventilation. No active bleeding, H&H stable. Critical care following, wean off ventilation as tolerated. 10/08: Patient had another cardiac arrest last night. Remains on mechanical ventilation, update family. Continue supportive care -poor prognosis 10/09: Called patient mother and discussed about patient care and management. Answered all question to best of my knowledge and family satisfaction. Patient remains on mechanical ventilation, cardiac arrest x2 so far. Critically sick, poor prognosis 10/10: remains on mechanical ventilation. h/h stable, no active bleeding. monitor CBC/BMP 10/11: WBC trended up with diarrhea, started on vancomycin po. remains on MV, off pressor, tolerating TF 10/12: remains on MV, off pressor, tolerating TF. called family for update but unable to reach, could not leave message as it was full. cont supportive care, wean off vent as tolerated. 10/13/2020; patient is on mechanical ventilation, tolerating tube feeding. Patient has labored breathing. Neuro was consulted and recommend MRI. Patient is on Precedex. Rectal tube in place. 10/14/2020; patient is on mechanical ventilation, Precedex. Patient had fever and blood culture ordered. Patient is on IV vancomycin per ID recommendation. Neuro consulted and recommend MRI. Continue to monitor. Prognosis is guarded. 10/15/2020; patient is on mechanical ventilation, Precedex. Patient had fever and blood culture ordered. Patient is on IV vancomycin per ID recommendation. Neuro consulted and recommend MRI. Continue to monitor. Prognosis is guarded. 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 12/06/20; anoxic brain injury. Awaiting placement. 12/07/2020; anoxic brain injury, awaiting placement. 12/09/2020; anoxic brain injury, awaiting placement. 12/10/2020; patient had episodes of fever overnight. CBC, BMP, blood culture, UA and chest x-ray ordered, will follow and manage accordingly. Urinalysis is suggestive of UTI and I put the patient on ceftriaxone, order urine culture. Chest x-ray is normal. 12/11/2020; patient is on ceftriaxone day 2 for UTI. We will continue to follow urine culture. 12/12/2020. Day #3 of Rocephin for UTI. We will continue for 2 more days while she is here. Present UTI. 12/13/2020. Day #4 of Rocephin for UTI. Patient remains on 50% with tracheostomy. Remains unresponsive with evidence of anoxic encephalopathy unable to make needs known. 12/14/2020. Day #5 of Rocephin for UTI completed today. Remains encephalopathic unable to make needs known. Remains on 50% unable to decrease oxygen via tracheostomy. Overall prognosis remains extremely poor. 3/2: Continue to monitor. Stop and monitor antibiotics at this time. Continue to wean oxygen as tolerated. Wean oxygen as tolerated. Case management working on placement. 3: Continue supportive care aspiration precautions. Awaiting placement discussion. Monitor fever curve. Prognosis remains poor no evidence of neurological recovery as of today 3/4: Continue supportive care, check labs and chest xray. Still monitor off antibiotics. Monitor Sodium level 12/18: Patient remains with intermittent low grade fever, reviewed EEG from [facility] again, consistent for Ischemic Hypoxic Encephalopathy, patient with decorticating posturing type presentation. Will discuss with extrusion bender to optimize diet so we can discontinue D5. CXR with no abnormality. Discussed extensively with the nursing staff at bedside CXR IMPRESSION: 1. No acute findings. 12/19: No clinical change 12/20: No clinical change, now off abx, monitor, discussed her medications with our pharmacist I believe that her posture and rigidity is likely from underlying anoxic encephalopathy. Continue to monitor and await placement decision. Continue aggressive suctioning. Plan discussed in detail with the nursing staff 12/21: Continue supportive care. Will give 500 cc bolus of fluid today to replace insensible losses. Tachycardia appears to be improving. Blood pressure precludes adjusting cardiac meds. Still awaiting placement from case management. Plan discussed in detail with the nursing staff 12/22. Continue support supportive care. Tracheostomy and PEG in place. Remains nonresponsive. Awaiting placement. 12/23. Continue support supportive care. Tracheostomy and PEG in place. Remains nonresponsive. Awaiting placement. Remains tachycardic. Decrease dose of lasix. Will try low dose metoprolol. Monitor BP closely 12/24. Continue support supportive care. Tracheostomy and PEG in place. Remains nonresponsive. Awaiting placement. Heart rate slightly better. Continue to monitor BP closely 12/24. Continue support supportive care. Tracheostomy and PEG in place. Remains nonresponsive. Awaiting placement. History Interval history: Trach in place Not responsive to calls Hospitalist Physical - Physical exam Narrative exam: VITAL SIGNS: Reviewed. GENERAL: Trach in place HEAD: No signs of head trauma. EYES: Pupils are equal. NECK: No adenopathy, no JVD. CHEST: Rales posteriorly CARDIAC: normal S1 and S2, without murmurs, gallops, or rubs. ABDOMEN: Soft, non tender and non distended. No rebound or guarding, and no masses palpated. Bowel Sounds normal MUSCULOSKELETAL: No edema NEUROLOGIC EXAM: Not responsive SKIN: No obvious lesions - Constitutional Vitals: Temp Pulse Resp BP Pulse Ox 99.8 F H 116 H 20 108/64 96 12/25/20 04:00 12/25/20 04:00 12/25/20 04:00 12/25/20 04:00 12/25/20 04:00 HEART Score - HEART Score Age: < 45 Risk factors: 1-2 risk factors - Critical Actions Critical Actions: >7 pts:50-65% risk of adverse cardiac event. Early invasive measures Results - Labs CBC & Chem 7: 12/18/20 04:57 12/22/20 11:03 Labs: Laboratory Last Values WBC 8.6 K/mm3 (4.5-11.0) 12/18/20 04:57 RBC 5.16 M/mm3 (3.65-5.03) H 12/18/20 04:57 Hgb 13.0 gm/dl (10.1-14.3) 12/18/20 04:57 Hgb Comment See scanned result 10/04/20 Unknown Hct 41.6 % (30.3-42.9) 12/18/20 04:57 MCV 81 fl (79-97) 12/18/20 04:57 MCH 25 pg (28-32) L 12/18/20 04:57 MCHC 31 % (30-34) 12/18/20 04:57 RDW 14.5 % (13.2-15.2) 12/18/20 04:57 Plt Count 258 K/mm3 (140-440) 12/18/20 04:57 Lymph % (Auto) 24.1 % (13.4-35.0) 12/14/20 10:32 [place] % (Auto) 7.8 % (0.0-7.3) H 12/14/20 10:32 Eos % (Auto) 1.5 % (0.0-4.3) 12/14/20 10:32 Baso % (Auto) 0.3 % (0.0-1.8) 12/14/20 10:32 Lymph # (Auto) 2.5 K/mm3 (1.2-5.4) 12/14/20 10:32 [place] # (Auto) 0.8 K/mm3 (0.0-0.8) 12/14/20 10:32 Eos # (Auto) 0.2 K/mm3 (0.0-0.4) 12/14/20 10:32 Baso # (Auto) 0.0 K/mm3 (0.0-0.1) 12/14/20 10:32 Add Manual Diff Complete 12/10/20 09:37 Total Counted 100 12/10/20 09:37 Seg Neutrophils % 66.3 % (40.0-70.0) 12/14/20 10:32 Seg Neuts % (Manual) 81.0 % (40.0-70.0) H 12/10/20 09:37 Band Neutrophils % 2.0 % 10/15/20 05:50 Lymphocytes % (Manual) 17.0 % (13.4-35.0) 12/10/20 09:37 Reactive Lymphs % (Man) 1.0 % 10/02/20 12:18 Monocytes % (Manual) 2.0 % (0.0-7.3) 12/10/20 09:37 Eosinophils % (Manual) 1.0 % (0.0-4.3) 10/29/20 07:56 Myelocytes % 2.0 % 10/02/20 13:05 Metamyelocytes % 1.0 % 10/14/20 04:00 Nucleated RBC % Not Reportable 12/10/20 09:37 Seg Neutrophils # 6.8 K/mm3 (1.8-7.7) 12/14/20 10:32 Seg Neutrophils # Man 10.1 K/mm3 (1.8-7.7) H 12/10/20 09:37 Band Neutrophils # 0.0 K/mm3 12/10/20 09:37 Lymphocytes # (Manual) 2.1 K/mm3 (1.2-5.4) 12/10/20 09:37 Abs React Lymphs (Man) 0.0 K/mm3 12/10/20 09:37 Monocytes # (Manual) 0.3 K/mm3 (0.0-0.8) 12/10/20 09:37 Eosinophils # (Manual) 0.0 K/mm3 (0.0-0.4) 12/10/20 09:37 Basophils # (Manual) 0.0 K/mm3 (0.0-0.1) 12/10/20 09:37 Metamyelocytes # 0.0 K/mm3 12/10/20 09:37 Myelocytes # 0.0 K/mm3 12/10/20 09:37 Promyelocytes # 0.0 K/mm3 12/10/20 09:37 Blast Cells # 0.0 K/mm3 12/10/20 09:37 WBC Morphology Not Reportable 12/10/20 09:37 Hypersegmented Neuts Not Reportable 12/10/20 09:37 Hyposegmented Neuts Not Reportable 12/10/20 09:37 Hypogranular Neuts Not Reportable 12/10/20 09:37 Smudge Cells Not Reportable 12/10/20 09:37 Toxic Granulation Not Reportable 12/10/20 09:37 Toxic Vacuolation Not Reportable 12/10/20 09:37 Dohle Bodies Not Reportable 12/10/20 09:37 Pelger-Huet Anomaly Not Reportable 12/10/20 09:37 Ester Rods Not Reportable 12/10/20 09:37 Platelet Estimate Consistent w auto 12/10/20 09:37 Clumped Platelets Not Reportable 12/10/20 09:37 Plt Clumps, EDTA Not Reportable 12/10/20 09:37 Large Platelets Not Reportable 12/10/20 09:37 Giant Platelets Not Reportable 12/10/20 09:37 Platelet Satelliting Not Reportable 12/10/20 09:37 Plt Morphology Comment Not Reportable 12/10/20 09:37 RBC Morphology Normal 12/10/20 09:37 Dimorphic RBCs Not Reportable 12/10/20 09:37 Polychromasia Not Reportable 12/10/20 09:37 Hypochromasia 1+ 12/10/20 09:37 Poikilocytosis Not Reportable 12/10/20 09:37 Anisocytosis Not Reportable 12/10/20 09:37 Microcytosis Not Reportable 12/10/20 09:37 Macrocytosis Not Reportable 12/10/20 09:37 Spherocytes Not Reportable 12/10/20 09:37 Pappenheimer Bodies Not Reportable 12/10/20 09:37 Sickle Cells Not Reportable 12/10/20 09:37 Target Cells Not Reportable 12/10/20 09:37 Tear Drop Cells Not Reportable 12/10/20 09:37 Ovalocytes Not Reportable 12/10/20 09:37 Stomatocytes Few 10/14/20 04:00 Helmet Cells Not Reportable 12/10/20 09:37 Burk-[place] Bodies Not Reportable 12/10/20 09:37 [place] Rings Not Reportable 12/10/20 09:37 Antoine Cells Not Reportable 12/10/20 09:37 Bite Cells Not Reportable 12/10/20 09:37 Crenated Cell Not Reportable 12/10/20 09:37 Elliptocytes Not Reportable 12/10/20 09:37 Acanthocytes (Spur) Not Reportable 12/10/20 09:37 Rouleaux Not Reportable 12/10/20 09:37 Hemoglobin C Crystals Not Reportable 12/10/20 09:37 Schistocytes Not Reportable 12/10/20 09:37 Malaria parasites Not Reportable 12/10/20 09:37 Sickle Cell Solubility See scanned result 10/04/20 Unknown Hemoglobin A See scanned result 10/04/20 Unknown Hemoglobin A2 See scanned result 10/04/20 Unknown Hemoglobin A2 Prime See scanned result 10/04/20 Unknown Hemoglobin C See scanned result 10/04/20 Unknown Hemoglobin D See scanned result 10/04/20 Unknown Hemoglobin E See scanned result 10/04/20 Unknown Hgb F Diffential Stain See scanned result 10/04/20 Unknown Hemoglobin F Quant See scanned result 10/04/20 Unknown Hemoglobin G See scanned result 10/04/20 Unknown Hemoglobin S See scanned result 10/04/20 Unknown Hemoglobin O-[place] See scanned result 10/04/20 Unknown Hemoglobin [place] See scanned result 10/04/20 Unknown Hemoglobin Analilia See scanned result 10/04/20 Unknown Variant Hemoglobin See scanned result 10/04/20 Unknown Abnorm Hgb IEF Confirm See scanned result 10/04/20 Unknown Hemoglobin Interpret See scanned result 10/04/20 Unknown Hemoglobinopathy Note See scanned result 10/04/20 Unknown Sharad Bodies Not Reportable 12/10/20 09:37 Hem Pathologist Commnt No 12/10/20 09:37 PT 13.6 Sec. (12.2-14.9) 10/21/20 13:54 INR 1.06 (0.87-1.13) 10/21/20 13:54 APTT 31.6 Sec. (24.2-36.6) 10/03/20 00:40 Fibrinogen 336 mg/dl (211-480) 10/04/20 10:00 D-Dimer 1974.47 ng/mlDDU (0-234) H 11/11/20 13:50 ABG pH 7.459 pH Units (7.350-7.450) H 10/26/20 10:30 POC ABG pCO2 20.7 mmHg (32.0-48.0) L 10/13/20 07:18 ABG pCO2 32.4 mm Hg 10/26/20 10:30 POC ABG pO2 137.9 mmHg (83-108) H 10/13/20 07:18 ABG pO2 112.2 mm Hg (80.0-90.0) H 10/26/20 10:30 POC ABG HCO3 14.8 10/13/20 07:18 ABG HCO3 22.5 mmol/L (20.0-26.0) 10/26/20 10:30 ABG O2 Saturation 98.2 % (95.0-99.0) 10/26/20 10:30 ABG O2 Content 18.5 (0.0-44) 10/26/20 10:30 POC ABG Base Excess -6.9 10/13/20 07:18 ABG Base Excess -0.6 mmol/L (-2.0-3.0) 10/26/20 10:30 ABG Hemoglobin 13.5 gm/dl (12.0-16.0) 10/26/20 10:30 ABG Oxyhemoglobin 98.3 (94-98) H 10/13/20 07:18 ABG Carboxyhemoglobin 1.3 % (0.0-5.0) 10/26/20 10:30 ABG Methemoglobin 0.5 % (0.0-1.5) 10/26/20 10:30 ABG Sodium 135.9 mmol/L (136.0-145.0) L 10/13/20 07:18 ABG Potassium 3.7 mmol/L (3.40-4.50) 10/13/20 07:18 ABG Chloride 111.0 mmol/L (98-107) H 10/13/20 07:18 ABG Glucose 109 mg/dL (65-95) H 10/13/20 07:18 VBG pH 6.949 (7.320-7.420) L* 10/02/20 Unknown Oxyhemoglobin 96.5 % (95.0-99.0) 10/26/20 10:30 Carboxyhemoglobin 0.3 (0.5-1.5) L 10/13/20 07:18 FiO2 25 % 10/26/20 10:30 Sodium 138 mmol/L (137-145) D 12/22/20 11:03 Potassium 3.9 mmol/L (3.6-5.0) 12/22/20 11:03 Chloride 101.0 mmol/L (98-107) 12/22/20 11:03 Carbon Dioxide 25 mmol/L (22-30) 12/22/20 11:03 Anion Gap 16 mmol/L 12/22/20 11:03 BUN 10 mg/dL (7-17) 12/22/20 11:03 Creatinine 0.5 mg/dL (0.6-1.2) L 12/22/20 11:03 Estimated GFR > 60 ml/min 12/22/20 11:03 BUN/Creatinine Ratio 20 % 12/22/20 11:03 Glucose 110 mg/dL (65-100) H 12/22/20 11:03 POC Glucose 106 mg/dL (70-105) H 12/25/20 00:34 Random Insulin 43.2 uIU/mL (<=19.6) H 11/02/20 19:19 Proinsulin See scanned result 11/02/20 19:19 C-Peptide 6.23 ng/mL (0.80-3.85) H 11/02/20 19:19 Lactic Acid 1.90 mmol/L (0.7-2.0) 10/04/20 22:00 Uric Acid 7.5 mg/dL (3.5-7.6) 10/02/20 13:05 Calcium 9.5 mg/dL (8.4-10.2) 12/22/20 11:03 Ionized Calcium 4.4 mg/dL (4.8-5.6) L 10/07/20 21:00 Phosphorus 4.60 mg/dL (2.5-4.5) H 11/13/20 10:05 Magnesium 2.10 mg/dL (1.7-2.3) 11/13/20 10:05 Total Bilirubin 0.40 mg/dL (0.1-1.2) 12/22/20 11:03 AST 45 units/L (5-40) H 12/22/20 11:03 ALT 33 units/L (7-56) 12/22/20 11:03 Alkaline Phosphatase 100 units/L (35-129) 12/22/20 11:03 Lactate Dehydrogenase 769 units/L (91-180) H 10/02/20 13:05 C-Reactive Protein 0.70 mg/dL (0.00-1.30) 11/11/20 13:50 NT-Pro-B Natriuret Pep 2788 pg/mL (0-450) H 10/04/20 10:00 Total Protein 7.5 g/dL (6.3-8.2) 12/22/20 11:03 Albumin 3.8 g/dL (3.9-5) L 12/22/20 11:03 Albumin/Globulin Ratio 1.0 % 12/22/20 11:03 Procalcitonin < 0.05 ng/mL (<0.15) 11/11/20 13:50 Arterial Blood Glucose 109 mg/dL (65-95) H 10/13/20 07:18 Arterial Blood Ionized Calcium 4.6 mg/dL (4.6-5.3) 10/13/20 07:18 Urine Color Kelsey (Yellow) 12/10/20 09:25 Urine Turbidity Cloudy (Clear) 12/10/20 09:25 Urine pH 7.0 (5.0-7.0) 12/10/20 09:25 Ur Specific [place] 1.027 (1.003-1.030) 12/10/20 09:25 Urine Protein 100 mg/dl mg/dL (Negative) 12/10/20 09:25 Urine Glucose (UA) Neg mg/dL (Negative) 12/10/20 09:25 Urine Ketones Neg mg/dL (Negative) 12/10/20 09:25 Urine Blood Sm (Negative) 12/10/20 09:25 Urine Nitrite Neg (Negative) 12/10/20 09:25 Urine Bilirubin Neg (Negative) 12/10/20 09:25 Urine Urobilinogen 4.0 mg/dL (<2.0) 12/10/20 09:25 Ur Leukocyte Esterase Mod (Negative) 12/10/20 09:25 Urine WBC (Auto) 50.0 /HPF (0.0-6.0) H 12/10/20 09:25 Urine RBC (Auto) 27.0 /HPF (0.0-6.0) 12/10/20 09:25 U Epithel Cells (Auto) 8.0 /HPF (0-13.0) 12/10/20 09:25 Urine Bacteria (Auto) 4+ /HPF (Negative) 11/11/20 13:50 Urine WBC Clumps 3+ /HPF 11/11/20 13:50 Calcium Oxalate Crystal Few 11/11/20 13:50 Urine Mucus Few /HPF 11/11/20 13:50 Urine Yeast (Budding) 2+ /HPF 12/10/20 09:25 Vancomycin Trough 12.6 ug/mL (5.0-20.0) 10/21/20 13:54 Random Vancomycin 10.7 ug/mL (0-40.0) 10/16/20 13:09 Phenytoin 5.7 ug/mL (10.0-20.0) L 10/13/20 07:00 C. difficile Tox (PCR) Positive (Negative) 10/16/20 10:22 Coronavirus (PCR) Negative (Negative) 10/08/20 14:15 Blood Type O POSITIVE 10/02/20 12:50 Antibody Screen Negative 10/02/20 12:50 Crossmatch See Detail 10/02/20 12:50 - Diagnostic Impressions Diagnostic Impressions: Echocardiogram 10/03/20 13:42 Transthoracic Echocardiogram Indication: S/P Cardiac Arrest R/O Cardiomyopathy BP: 133/71 Conclusions *Global left ventricular systolic function is normal. *The estimated ejection fraction is 60-65%. *There is trace of mitral regurgitation. *The right 0heart chambers are both slightly dilated. *There is mild tricuspid regurgitation. *There is mild-moderate pulmonary hypertension. *The right ventricular systolic pressure is calculated at 44 mmHg. *The study quality is technically difficult. Findings Procedure Info: The study quality is technically difficult. The study is technically limited due to patient body habitus. The study was technically limited due to the patient's inability to lay in the left lateral decubitus position. Left Ventricle: The left ventricular chamber size is normal. There is no left ventricular hypertrophy. Global left ventricular systolic function is normal. The estimated ejection fraction is 60-65%. Left Atrium: The left atrial chamber size is normal. Right Ventricle: The right ventricle is slightly dilated. Right Atrium: The right atrium is mildly dilated. Aortic Valve: The aortic valve leaflets are mildly thickened. There is no evidence of aortic regurgitation. There is no evidence of aortic stenosis. Mitral Valve: The mitral valve leaflets are mildly thickened. There is trace of mitral regurgitation. There is no evidence of mitral stenosis. Tricuspid Valve: There is mild tricuspid regurgitation. The right ventricular systolic pressure is calculated at 44 mmHg. There is evidence of mild pulmonary hypertension. Pulmonic Valve: There is trace pulmonic regurgitation. Pericardium: There is no pericardial effusion. Aorta: There is no dilatation of the ascending aorta. There is no dilatation of the aortic root. Venous: The inferior vena cava is dilated. Measurements Chambers 2D Name Value Normal Range IVSd (2D) 1 cm (0.6 - 1.1) LVPWd (2D) 1.01 cm (0.6 - 1.1) LVIDd (2D) 4.58 cm (3.7 - 5.6) LVIDs (2D) 3.17 cm (2 - 3.8) LV FS (2D) 30.93 % - EF Teichholz (2D) 58.66 % - Ao root diameter (2D) 2.94 cm (2 - 3.7) Volumes/Mass Name Value Normal Range LA ESV SP 4CH (A/L) 72.82 ml - LA ESV SP 2CH (A/L) 66.86 ml - LA ESV BP (A/L) 74.49 ml - LA ESV SP 4CH (MOD) 71.03 ml - LA ESV SP 2CH (MOD) 64.3 ml - LV EDV SP 4CH (MOD) 98.82 ml - LV ESV SP 4CH (MOD) 24.8 ml - EF SP 4CH (MOD) 74.9 % - LV EDV SP 2CH (MOD) 86.1 ml - LV ESV SP 2CH (MOD) 36.93 ml - EF SP 2CH (MOD) 57.11 % - LV EDV BP 94.4 ml - LV ESV BP 32.66 ml - BP EF (MOD) 65.4 % - Diastolic/Systolic Function Name Value Normal Range MV E-wave Vmax 1.04 m/sec - MV deceleration time 160.46 msec - MV A-wave Vmax 0.92 m/sec - MV E:A ratio 1.14 ratio - Aortic Valve Name Value Normal Range AV Vmax 2.12 m/sec - AV VTI 22.37 cm - AV peak gradient 17.95 mmHg - AV mean gradient 7.29 mmHg - LVOT diameter 2.01 cm - LVOT Vmax 1.8 m/sec - LVOT VTI 27.17 cm - LVOT peak gradient 12.91 mmHg - LVOT mean gradient 6.83 mmHg - SV LVOT 86.42 ml - ANITA (continuity Vmax) 2.7 cm2 - ANITA (continuity VTI) 3.86 cm2 - Ascending Ao 3.18 cm - Tricuspid Valve Name Value Normal Range TV E-wave Vmax 0.88 m/sec - TR Vmax 3.01 m/sec - TR peak gradient 36.27 mmHg - RAP 8 mmHg - RVSP 44 mmHg - IVC diameter 2.65 cm (1.2 - 2.3) Pulmonic Valve/Qp:Qs Name Value Normal Range PV Vmax 1.22 m/sec - PV peak gradient 5.91 mmHg - RVOT Vmax 0.87 m/sec - RVOT VTI 13.32 cm - RVOT peak gradient 3 mmHg - PV acceleration time 110.37 msec - [place]/IV: Voiding Method External Female Catheter IV Catheter Type [Right Foot] INT / Saline Lock IV Catheter Type [Left Forearm Peripheral IV ] IV Catheter Type [Left Wrist] INT / Saline Lock IV Catheter Type [Right Hand] INT / Saline Lock IV Catheter Type [Right INT / Saline Lock Antecubital] IV Catheter Type [Right Upper Mid-line arm] IV Catheter Type [Left Triple Lumen Cath Internal Jugular] IV Catheter Type [Left Hand] Peripheral IV IV Catheter Type [Left Peripheral IV Antecubital] Active Medications - Current Medications Current Medications: Generic Name Dose Route Start Last Admin Trade Name Freq PRN Reason Stop Dose Admin Acetaminophen 650 mg 10/05/20 16:34 12/25/20 04:07 Acetaminophen 325 Mg/10.15 Ml Oral Liqd Unit Dose FEEDTUBE 650 mg Q6H PRN Administration Non Cardiac Pain or Temp>100.5 Albuterol 2.5 mg 11/05/20 13:03 11/06/20 13:04 Albuterol 2.5 Mg/3 Ml Nebu IH 2.5 mg Q4HRT PRN Administration Shortness Of Breath Lipase/Protease/Amylase 1 each 10/05/20 11:09 Lipase 10,500/Protease 25,000/Amylase 43,750 (Units) Dr Barakat FEEDTUBE PRN PRN For Clogged Feeding Tube Enoxaparin Sodium 40 mg 10/22/20 10:00 12/24/20 09:23 Enoxaparin 40 Mg/0.4 Ml Inj SUB-Q 40 mg DAILY ERINN Administration Protocol Famotidine 20 mg 10/07/20 10:00 12/25/20 00:26 Famotidine 20 Mg Tab PO 20 mg BID ERINN Administration Furosemide 20 mg 12/24/20 10:00 12/24/20 09:22 Furosemide 20 Mg Tab PO 20 mg QAM ERINN Administration Hydralazine HCl 20 mg 10/07/20 11:49 10/17/20 07:20 Hydralazine 20 Mg/1 Ml Inj IV 20 mg Q6H PRN Administration SBP >170 Metoprolol Tartrate 12.5 mg 12/23/20 13:00 12/25/20 01:16 Metoprolol Tartrate 25 Mg Tab PO Not Given BID ERINN Simple Syrup 15 ml 10/05/20 11:09 Simple Syrup 15 Ml FEEDTUBE PRN PRN Hypoglycemia Simple Syrup 30 ml 10/05/20 11:09 Simple Syrup 15 Ml FEEDTUBE PRN PRN Hypoglycemia Sodium Bicarbonate 325 mg 10/05/20 11:09 12/16/20 08:19 Sodium Bicarbonate 325 Mg Tab FEEDTUBE 325 mg PRN PRN Administration For Clogged Feeding Tube Nutrition/Malnutrition Assess - Dietary Evaluation Nutrition/Malnutrition Findings: Nutrition Notes Start: 10/04/20 11:13 Freq: Status: Active Protocol: Document 12/21/20 11:40 (Rec: 12/21/20 11:44 [id number]) Nutrition Notes Initial or Follow up Reassessment Current Diagnosis Respiratory Failure Other Pertinent Diagnosis C-Diff, Cardiac arrest, s/p c- section and supracervical hysterectomy, Brain Current Diet Jevity 1.2 at 60 mL/hr Labs/Tests 12/18: Na 150 BUN 20 Pertinent Medications Lasix Height 5 ft 8 in Weight 93.1 kg [place] Body Weight (kg) 63.63 BMI 31.1 Weight Status Obese Subjective/Other Information FU for TF tolerance. Pt with TF off, per RN, due to patients posistion. RN to restart when she turns pt again. Percent of energy/protein needs met: 0%/0% Burn Absent Trauma Absent GI Symptoms None Food Allergy Yes Current % PO Negligible Minimum of two criteria Yes Interpretation of Weight Loss (severe) >2% in 1 week Fluid Accumulation Mild (non-severe) #2 Nutrition Diagnosis Malnutrition Diagnosis Progress(for reassessment Continues documentation) #1 Nutrition Diagnosis Inadequate oral intake Diagnosis Progress(for reassessment Continues documentation) Is patient on ventilator? No Is Patient Ambulatory and/or Out of Bed No REE-([facility]-confined to bed) 2028.356 Kcal/Kg value to use for calculation 19 Approximate Energy Requirements Using 1769 kcal/Kg Calculation Used for Recommendations Kcal/kg Additional Notes PRO needs: 65-81 (0.8-1 g/kg AdBW 81kg) Fluid needs: 1 mL/kcal or per MD Nutrition Intervention Change Diet Order: Continue TF Nutrition Support: Jevity 1.2 at 60ml/hr. Flush 100ml q4h. Flush 250 ml q4h for Hypernatremia. Once hypernatremia is resolved, flush 100 q4h. Kcal 1,728 Protein (gm) 80 Fluid (mL) 1,162 Goal #1 TF tolerance Goal #2 Meet at least 75% of energy and protein needs via TF Anticipated Discharge Needs: Unable to determine at this time Follow-Up By: 12/25/20 Additional Comments FU for stable TF and Na labs
[2020-12-25] MEDS: FUROSEMIDE 20 MG TAB PO SCH (10:25)
[2020-12-25] MEDS: ENOXAPARIN 40 MG/0.4 ML INJ SUB-Q SCH (10:25)
[2020-12-26] MEDS: ACETAMINOPHEN 325 MG/10.15 ML ORAL LIQD UNIT DOSE FEEDTUBE PRN ×3 (00:24→22:23)
--- NOTE | 2020-12-26 10:12 | Progress Note ---
Assessment and Plan Assessment and plan: Eclampsia/HELLP Syndrome, ADOLPH, DIC; s/p , s/p supracervical hyst 30 year old -[place] female CHE 10/25/20 at 36w5d who presents with seizures in triage on 10/02/20. Pt was not able to provide history but per pt's , she presented to the hospital to return a 24 hour urine specimen for analysis. She then suddenly reported that she did not feel good. She was taken to labor and delivery and shortly after arrival, she began seizing. During this time, a code met was called because the patient became hypoxic. She was then noted to be without a pulse. Chest compressions were started immediately, and the patient was emergently taken to the operating room for delivery of the fetus. Off note, This patient has had care at [facility] with comanagement by [facility] since 11 wks complicated by ADHD, morbid obesity, generalized anxiety disorder, panic attacks, chronic narcotic use, fibromyalgia, GERD, Irritable Bowel Syndrome, Migraines, h/o endometrial ablation and ovarian vein embolization, genital herpes, insomnia, LGA fetus, nausea and vomiting, polyhydramnios, quad screen positive for Down's Syndrome, and previous x 3. She is GBS negative. Hospital course 11:30: Pt brought to L&D triage for evaluation of possible labor. Pt accompanied by her spouse. Pt spouse poor historian; unable to obtain history- allergies at this time. Pt taken from registration to triage area via WC. Pt unresponsive, actively seizing with snorous respirations. crusher and binder operator, Kassy, called and requesting assistance. 11:35: Multiple staff at bedside. Pt 02 sat 67% on nonrebreather, unable to read BP at this time. Yifan Theodore CRNA, at bedside for intubation and assistance with IV insertion. INT attempt by multiple RNs unsuccessful at this time. 11:42: Pt being bagged by KORIN, 02% 79%. No pulse palpated, compressions started at this time; bharati young called and Dr. Newberry preparing OR for emergent c/s. 11:44: Continued compressions on stretcher while transporting pt to OR 1. Pt being bagged with jaw thrust manuever in place by KORIN Stringer student. 11:45: Arrival to OR 1. Dr. Newberry and Dr. Portillo present for emergent c/s. Code team arrived for continued care. patient revived and c/s done Patient has been bleeding from C/s site followed by supracervical hysterectomy for severe bleeding Patient transfused multiple units of PRBC, Patient in DIC. Transferred to the ICU 10/03. Patient seen and examined at bedside this morning. Patient is nonresponsive and mechanically ventilated. On pressors. Labs reviewed-has leukocytosis, anemia, thrombocytopenia, ADOLPH and lactic acidosis. Started on IV antibiotics to cover possible sepsis secondary to DIC. Hematology oncology recommendations appreciated-needs additional cryoprecipitate and FFP. Monitor D-dimer, fibrinogen and frequent labs. Nephrology consulted for lactic acidosis and ADOLPH. 10/04. Remains mechanically ventilated. Kevin antibiotics. Labs shows improved acidosis - lactic acid 3.5. Hb drop noted. Getting transfused 2 units PRBCs. Platelet count is ~40k. Continue to monitor labs closely. Critical care team on board. 10/05; xray reviewed, concerning for multifocal infilrate, likely underlying Pneumonia, will add ID consult to assist with management of this critically ill patient, start tube feed, closely monitor renal system 10/06: Resumed care, remains on mechanical ventilation. No active bleeding, H&H stable. Continue to monitor CBC and BMP. Continue IV antibiotic for underlying pneumonia. Follow critical care and ID recommendation. 10/07: Remains on mechanical ventilation. No active bleeding, H&H stable. Critical care following, wean off ventilation as tolerated. 10/08: Patient had another cardiac arrest last night. Remains on mechanical ventilation, update family. Continue supportive care -poor prognosis 10/09: Called patient mother and discussed about patient care and management. Answered all question to best of my knowledge and family satisfaction. Patient remains on mechanical ventilation, cardiac arrest x2 so far. Critically sick, poor prognosis 10/10: remains on mechanical ventilation. h/h stable, no active bleeding. monitor CBC/BMP 10/11: WBC trended up with diarrhea, started on vancomycin po. remains on MV, off pressor, tolerating TF 10/12: remains on MV, off pressor, tolerating TF. called family for update but unable to reach, could not leave message as it was full. cont supportive care, wean off vent as tolerated. 10/13/2020; patient is on mechanical ventilation, tolerating tube feeding. Patient has labored breathing. Neuro was consulted and recommend MRI. Patient is on Precedex. Rectal tube in place. 10/14/2020; patient is on mechanical ventilation, Precedex. Patient had fever and blood culture ordered. Patient is on IV vancomycin per ID recommendation. Neuro consulted and recommend MRI. Continue to monitor. Prognosis is guarded. 10/15/2020; patient is on mechanical ventilation, Precedex. Patient had fever and blood culture ordered. Patient is on IV vancomycin per ID recommendation. Neuro consulted and recommend MRI. Continue to monitor. Prognosis is guarded. 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 12/06/20; anoxic brain injury. Awaiting placement. 12/07/2020; anoxic brain injury, awaiting placement. 12/09/2020; anoxic brain injury, awaiting placement. 12/10/2020; patient had episodes of fever overnight. CBC, BMP, blood culture, UA and chest x-ray ordered, will follow and manage accordingly. Urinalysis is suggestive of UTI and I put the patient on ceftriaxone, order urine culture. Chest x-ray is normal. 12/11/2020; patient is on ceftriaxone day 2 for UTI. We will continue to follow urine culture. 12/12/2020. Day #3 of Rocephin for UTI. We will continue for 2 more days while she is here. Present UTI. 12/13/2020. Day #4 of Rocephin for UTI. Patient remains on 50% with tracheostomy. Remains unresponsive with evidence of anoxic encephalopathy unable to make needs known. 12/14/2020. Day #5 of Rocephin for UTI completed today. Remains encephalopathic unable to make needs known. Remains on 50% unable to decrease oxygen via tracheostomy. Overall prognosis remains extremely poor. 32: Continue to monitor. Stop and monitor antibiotics at this time. Continue to wean oxygen as tolerated. Wean oxygen as tolerated. Case management working on placement. 12/16: Continue supportive care aspiration precautions. Awaiting placement discussion. Monitor fever curve. Prognosis remains poor no evidence of ne urological recovery as of today 3/: Continue supportive care, check labs and chest xray. Still monitor off antibiotics. Monitor Sodium level 12/18: Patient remains with intermittent low grade fever, reviewed EEG from September again, consistent for Ischemic Hypoxic Encephalopathy, patient with decorticating posturing type presentation. Will discuss with controller mechanic to optimize diet so we can discontinue D5. CXR with no abnormality. Discussed extensively with the nursing staff at bedside CXR IMPRESSION: 1. No acute findings. 12/19: No clinical change 12/20: No clinical change, now off abx, monitor, discussed her medications with our pharmacist I believe that her posture and rigidity is likely from underlying anoxic encephalopathy. Continue to monitor and await placement decision. Continue aggressive suctioning. Plan discussed in detail with the nursing staff 12/21: Continue supportive care. Will give 500 cc bolus of fluid today to replace insensible losses. Tachycardia appears to be improving. Blood pressure precludes adjusting cardiac meds. Still awaiting placement from case doreen gil. Plan discussed in detail with the nursing staff 12/22. Continue support supportive care. Tracheostomy and PEG in place. Remains nonresponsive. Awaiting placement. 12/23. Continue support supportive care. Tracheostomy and PEG in place. Remains nonresponsive. Awaiting placement. Remains tachycardic. Decrease dose of lasix. Will try low dose metoprolol. Monitor BP closely 12/24. Continue support supportive care. Tracheostomy and PEG in place. Remains nonresponsive. Awaiting placement. Heart rate slightly better. Continue to monitor BP closely 12/25. Continue support supportive care. Tracheostomy and PEG in place. Remains nonresponsive. Awaiting placement. 12/26. Continue support supportive care. Tracheostomy and PEG in place. Remains nonresponsive. Awaiting placement Problems -- Sepsis with presumed Pneumonia Resolved --DIC (disseminated intravascular coagulation) vs HELLP syndrome Resolved --Possible Eclampsia/HELLP Syndrome Resolved --s/p Cardiac arrest x2 on admission and on 10/07 ACLS protocol followed by revival Echo showed preserved Ef --Shock-resolved now awaiting placement s/p pressor support Overall prognosis extremely poor. --ADOLPH-resolved Stable --DVT prophylaxis Patient presented with DIC No anticoagulants UTI s/p abx therapy History Interval history: Trach in place Not responsive to calls Hospitalist Physical - Physical exam Narrative exam: VITAL SIGNS: Reviewed. GENERAL: Trach in place HEAD: No signs of head trauma. EYES: Pupils are equal. NECK: No adenopathy, no JVD. CHEST: Rales posteriorly CARDIAC: normal S1 and S2, without murmurs, gallops, or rubs. ABDOMEN: Soft, non tender and non distended. No rebound or guarding, and no masses palpated. Bowel Sounds normal MUSCULOSKELETAL: No edema NEUROLOGIC EXAM: Not responsive SKIN: No obvious lesions - Constitutional Vitals: Temp Pulse Resp BP Pulse Ox 98.8 F 114 H 18 112/88 97 12/26/20 05:13 12/26/20 05:13 12/26/20 05:13 12/26/20 05:13 12/25/20 22:33 HEART Score - HEART Score Age: < 45 Risk factors: 1-2 risk factors - Critical Actions Critical Actions: >7 pts:50-65% risk of adverse cardiac event. Early invasive measures Results - Labs CBC & Chem 7: 12/18/20 04:57 12/22/20 11:03 Labs: Laboratory Last Values WBC 8.6 K/mm3 (4.5-11.0) 12/18/20 04:57 RBC 5.16 M/mm3 (3.65-5.03) H 12/18/20 04:57 Hgb 13.0 gm/dl (10.1-14.3) 12/18/20 04:57 Hgb Comment See scanned result 10/04/20 Unknown Hct 41.6 % (30.3-42.9) 12/18/20 04:57 MCV 81 fl (79-97) 12/18/20 04:57 MCH 25 pg (28-32) L 12/18/20 04:57 MCHC 31 % (30-34) 12/18/20 04:57 RDW 14.5 % (13.2-15.2) 12/18/20 04:57 Plt Count 258 K/mm3 (140-440) 12/18/20 04:57 Lymph % (Auto) 24.1 % (13.4-35.0) 12/14/20 10:32 [place] % (Auto) 7.8 % (0.0-7.3) H 12/14/20 10:32 Eos % (Auto) 1.5 % (0.0-4.3) 12/14/20 10:32 Baso % (Auto) 0.3 % (0.0-1.8) 12/14/20 10:32 Lymph # (Auto) 2.5 K/mm3 (1.2-5.4) 12/14/20 10:32 [place] # (Auto) 0.8 K/mm3 (0.0-0.8) 12/14/20 10:32 Eos # (Auto) 0.2 K/mm3 (0.0-0.4) 12/14/20 10:32 Baso # (Auto) 0.0 K/mm3 (0.0-0.1) 12/14/20 10:32 Add Manual Diff Complete 12/10/20 09:37 Total Counted 100 12/10/20 09:37 Seg Neutrophils % 66.3 % (40.0-70.0) 12/14/20 10:32 Seg Neuts % (Manual) 81.0 % (40.0-70.0) H 12/10/20 09:37 Band Neutrophils % 2.0 % 10/15/20 05:50 Lymphocytes % (Manual) 17.0 % (13.4-35.0) 12/10/20 09:37 Reactive Lymphs % (Man) 1.0 % 10/02/20 12:18 Monocytes % (Manual) 2.0 % (0.0-7.3) 12/10/20 09:37 Eosinophils % (Manual) 1.0 % (0.0-4.3) 10/29/20 07:56 Myelocytes % 2.0 % 10/02/20 13:05 Metamyelocytes % 1.0 % 10/14/20 04:00 Nucleated RBC % Not Reportable 12/10/20 09:37 Seg Neutrophils # 6.8 K/mm3 (1.8-7.7) 12/14/20 10:32 Seg Neutrophils # Man 10.1 K/mm3 (1.8-7.7) H 12/10/20 09:37 Band Neutrophils # 0.0 K/mm3 12/10/20 09:37 Lymphocytes # (Manual) 2.1 K/mm3 (1.2-5.4) 12/10/20 09:37 Abs React Lymphs (Man) 0.0 K/mm3 12/10/20 09:37 Monocytes # (Manual) 0.3 K/mm3 (0.0-0.8) 12/10/20 09:37 Eosinophils # (Manual) 0.0 K/mm3 (0.0-0.4) 12/10/20 09:37 Basophils # (Manual) 0.0 K/mm3 (0.0-0.1) 12/10/20 09:37 Metamyelocytes # 0.0 K/mm3 12/10/20 09:37 Myelocytes # 0.0 K/mm3 12/10/20 09:37 Promyelocytes # 0.0 K/mm3 12/10/20 09:37 Blast Cells # 0.0 K/mm3 12/10/20 09:37 WBC Morphology Not Reportable 12/10/20 09:37 Hypersegmented Neuts Not Reportable 12/10/20 09:37 Hyposegmented Neuts Not Reportable 12/10/20 09:37 Hypogranular Neuts Not Reportable 12/10/20 09:37 Smudge Cells Not Reportable 12/10/20 09:37 Toxic Granulation Not Reportable 12/10/20 09:37 Toxic Vacuolation Not Reportable 12/10/20 09:37 Dohle Bodies Not Reportable 12/10/20 09:37 Pelger-Huet Anomaly Not Reportable 12/10/20 09:37 Ester Rods Not Reportable 12/10/20 09:37 Platelet Estimate Consistent w auto 12/10/20 09:37 Clumped Platelets Not Reportable 12/10/20 09:37 Plt Clumps, EDTA Not Reportable 12/10/20 09:37 Large Platelets Not Reportable 12/10/20 09:37 Giant Platelets Not Reportable 12/10/20 09:37 Platelet Satelliting Not Reportable 12/10/20 09:37 Plt Morphology Comment Not Reportable 12/10/20 09:37 RBC Morphology Normal 12/10/20 09:37 Dimorphic RBCs Not Reportable 12/10/20 09:37 Polychromasia Not Reportable 12/10/20 09:37 Hypochromasia 1+ 12/10/20 09:37 Poikilocytosis Not Reportable 12/10/20 09:37 Anisocytosis Not Reportable 12/10/20 09:37 Microcytosis Not Reportable 12/10/20 09:37 Macrocytosis Not Reportable 12/10/20 09:37 Spherocytes Not Reportable 12/10/20 09:37 Pappenheimer Bodies Not Reportable 12/10/20 09:37 Sickle Cells Not Reportable 12/10/20 09:37 Target Cells Not Reportable 12/10/20 09:37 Tear Drop Cells Not Reportable 12/10/20 09:37 Ovalocytes Not Reportable 12/10/20 09:37 Stomatocytes Few 10/14/20 04:00 Helmet Cells Not Reportable 12/10/20 09:37 Burk-Michigamme Bodies Not Reportable 12/10/20 09:37 [place] Rings Not Reportable 12/10/20 09:37 [place] Cells Not Reportable 12/10/20 09:37 Bite Cells Not Reportable 12/10/20 09:37 Crenated Cell Not Reportable 12/10/20 09:37 Elliptocytes Not Reportable 12/10/20 09:37 Acanthocytes (Spur) Not Reportable 12/10/20 09:37 Rouleaux Not Reportable 12/10/20 09:37 Hemoglobin C Crystals Not Reportable 12/10/20 09:37 Schistocytes Not Reportable 12/10/20 09:37 Malaria parasites Not Reportable 12/10/20 09:37 Sickle Cell Solubility See scanned result 10/04/20 Unknown Hemoglobin A See scanned result 10/04/20 Unknown Hemoglobin A2 See scanned result 10/04/20 Unknown Hemoglobin A2 Prime See scanned result 10/04/20 Unknown Hemoglobin C See scanned result 10/04/20 Unknown Hemoglobin D See scanned result 10/04/20 Unknown Hemoglobin E See scanned result 10/04/20 Unknown Hgb F Diffential Stain See scanned result 10/04/20 Unknown Hemoglobin F Quant See scanned result 10/04/20 Unknown Hemoglobin G See scanned result 10/04/20 Unknown Hemoglobin S See scanned result 10/04/20 Unknown Hemoglobin O-Alexander See scanned result 10/04/20 Unknown Hemoglobin Barts See scanned result 10/04/20 Unknown Hemoglobin Analilia See scanned result 10/04/20 Unknown Variant Hemoglobin See scanned result 10/04/20 Unknown Abnorm Hgb IEF Confirm See scanned result 10/04/20 Unknown Hemoglobin Interpret See scanned result 10/04/20 Unknown Hemoglobinopathy Note See scanned result 10/04/20 Unknown Sharad Bodies Not Reportable 12/10/20 09:37 Hem Pathologist Commnt No 12/10/20 09:37 PT 13.6 Sec. (12.2-14.9) 10/21/20 13:54 INR 1.06 (0.87-1.13) 10/21/20 13:54 APTT 31.6 Sec. (24.2-36.6) 10/03/20 00:40 Fibrinogen 336 mg/dl (211-480) 10/04/20 10:00 D-Dimer 1974.47 ng/mlDDU (0-234) H 11/11/20 13:50 ABG pH 7.459 pH Units (7.350-7.450) H 10/26/20 10:30 POC ABG pCO2 20.7 mmHg (32.0-48.0) L 10/13/20 07:18 ABG pCO2 32.4 mm Hg 10/26/20 10:30 POC ABG pO2 137.9 mmHg (83-108) H 10/13/20 07:18 ABG pO2 112.2 mm Hg (80.0-90.0) H 10/26/20 10:30 POC ABG HCO3 14.8 10/13/20 07:18 ABG HCO3 22.5 mmol/L (20.0-26.0) 10/26/20 10:30 ABG O2 Saturation 98.2 % (95.0-99.0) 10/26/20 10:30 ABG O2 Content 18.5 (0.0-44) 10/26/20 10:30 POC ABG Base Excess -6.9 10/13/20 07:18 ABG Base Excess -0.6 mmol/L (-2.0-3.0) 10/26/20 10:30 ABG Hemoglobin 13.5 gm/dl (12.0-16.0) 10/26/20 10:30 ABG Oxyhemoglobin 98.3 (94-98) H 10/13/20 07:18 ABG Carboxyhemoglobin 1.3 % (0.0-5.0) 10/26/20 10:30 ABG Methemoglobin 0.5 % (0.0-1.5) 10/26/20 10:30 ABG Sodium 135.9 mmol/L (136.0-145.0) L 10/13/20 07:18 ABG Potassium 3.7 mmol/L (3.40-4.50) 10/13/20 07:18 ABG Chloride 111.0 mmol/L (98-107) H 10/13/20 07:18 ABG Glucose 109 mg/dL (65-95) H 10/13/20 07:18 VBG pH 6.949 (7.320-7.420) L* 10/02/20 Unknown Oxyhemoglobin 96.5 % (95.0-99.0) 10/26/20 10:30 Carboxyhemoglobin 0.3 (0.5-1.5) L 10/13/20 07:18 FiO2 25 % 10/26/20 10:30 Sodium 138 mmol/L (137-145) D 12/22/20 11:03 Potassium 3.9 mmol/L (3.6-5.0) 12/22/20 11:03 Chloride 101.0 mmol/L (98-107) 12/22/20 11:03 Carbon Dioxide 25 mmol/L (22-30) 12/22/20 11:03 Anion Gap 16 mmol/L 12/22/20 11:03 BUN 10 mg/dL (7-17) 12/22/20 11:03 Creatinine 0.5 mg/dL (0.6-1.2) L 12/22/20 11:03 Estimated GFR > 60 ml/min 12/22/20 11:03 BUN/Creatinine Ratio 20 % 12/22/20 11:03 Glucose 110 mg/dL (65-100) H 12/22/20 11:03 POC Glucose 86 mg/dL (70-105) 12/26/20 00:04 Random Insulin 43.2 uIU/mL (<=19.6) H 11/02/20 19:19 Proinsulin See scanned result 11/02/20 19:19 C-Peptide 6.23 ng/mL (0.80-3.85) H 11/02/20 19:19 Lactic Acid 1.90 mmol/L (0.7-2.0) 10/04/20 22:00 Uric Acid 7.5 mg/dL (3.5-7.6) 10/02/20 13:05 Calcium 9.5 mg/dL (8.4-10.2) 12/22/20 11:03 Ionized Calcium 4.4 mg/dL (4.8-5.6) L 10/07/20 21:00 Phosphorus 4.60 mg/dL (2.5-4.5) H 11/13/20 10:05 Magnesium 2.10 mg/dL (1.7-2.3) 11/13/20 10:05 Total Bilirubin 0.40 mg/dL (0.1-1.2) 12/22/20 11:03 AST 45 units/L (5-40) H 12/22/20 11:03 ALT 33 units/L (7-56) 12/22/20 11:03 Alkaline Phosphatase 100 units/L (35-129) 12/22/20 11:03 Lactate Dehydrogenase 769 units/L (91-180) H 10/02/20 13:05 C-Reactive Protein 0.70 mg/dL (0.00-1.30) 11/11/20 13:50 NT-Pro-B Natriuret Pep 2788 pg/mL (0-450) H 10/04/20 10:00 Total Protein 7.5 g/dL (6.3-8.2) 12/22/20 11:03 Albumin 3.8 g/dL (3.9-5) L 12/22/20 11:03 Albumin/Globulin Ratio 1.0 % 12/22/20 11:03 Procalcitonin < 0.05 ng/mL (<0.15) 11/11/20 13:50 Arterial Blood Glucose 109 mg/dL (65-95) H 10/13/20 07:18 Arterial Blood Ionized Calcium 4.6 mg/dL (4.6-5.3) 10/13/20 07:18 Urine Color Kelsey (Yellow) 12/10/20 09:25 Urine Turbidity Cloudy (Clear) 12/10/20 09:25 Urine pH 7.0 (5.0-7.0) 12/10/20 09:25 Ur Specific [place] 1.027 (1.003-1.030) 12/10/20 09:25 Urine Protein 100 mg/dl mg/dL (Negative) 12/10/20 09:25 Urine Glucose (UA) Neg mg/dL (Negative) 12/10/20 09:25 Urine Ketones Neg mg/dL (Negative) 12/10/20 09:25 Urine Blood Sm (Negative) 12/10/20 09:25 Urine Nitrite Neg (Negative) 12/10/20 09:25 Urine Bilirubin Neg (Negative) 12/10/20 09:25 Urine Urobilinogen 4.0 mg/dL (<2.0) 12/10/20 09:25 Ur Leukocyte Esterase Mod (Negative) 12/10/20 09:25 Urine WBC (Auto) 50.0 /HPF (0.0-6.0) H 12/10/20 09:25 Urine RBC (Auto) 27.0 /HPF (0.0-6.0) 12/10/20 09:25 U Epithel Cells (Auto) 8.0 /HPF (0-13.0) 12/10/20 09:25 Urine Bacteria (Auto) 4+ /HPF (Negative) 11/11/20 13:50 Urine WBC Clumps 3+ /HPF 11/11/20 13:50 Calcium Oxalate Crystal Few 11/11/20 13:50 Urine Mucus Few /HPF 11/11/20 13:50 Urine Yeast (Budding) 2+ /HPF 12/10/20 09:25 Vancomycin Trough 12.6 ug/mL (5.0-20.0) 10/21/20 13:54 Random Vancomycin 10.7 ug/mL (0-40.0) 10/16/20 13:09 Phenytoin 5.7 ug/mL (10.0-20.0) L 10/13/20 07:00 C. difficile Tox (PCR) Positive (Negative) 10/16/20 10:22 Coronavirus (PCR) Negative (Negative) 10/08/20 14:15 Blood Type O POSITIVE 10/02/20 12:50 Antibody Screen Negative 10/02/20 12:50 Crossmatch See Detail 10/02/20 12:50 - Diagnostic Impressions Diagnostic Impressions: Echocardiogram 10/03/20 13:42 Transthoracic Echocardiogram Indication: S/P Cardiac Arrest R/O Cardiomyopathy BP: 133/71 Conclusions *Global left ventricular systolic function is normal. *The estimated ejection fraction is 60-65%. *There is trace of mitral regurgitation. *The right 0heart chambers are both slightly dilated. *There is mild tricuspid regurgitation. *There is mild-moderate pulmonary hypertension. *The right ventricular systolic pressure is calculated at 44 mmHg. *The study quality is technically difficult. Findings Procedure Info: The study quality is technically difficult. The study is technically limited due to patient body habitus. The study was technically limited due to the patient's inability to lay in the left lateral decubitus position. Left Ventricle: The left ventricular chamber size is normal. There is no left ventricular hypertrophy. Global left ventricular systolic function is normal. The estimated ejection fraction is 60-65%. Left Atrium: The left atrial chamber size is normal. Right Ventricle: The right ventricle is slightly dilated. Right Atrium: The right atrium is mildly dilated. Aortic Valve: The aortic valve leaflets are mildly thickened. There is no evidence of aortic regurgitation. There is no evidence of aortic stenosis. Mitral Valve: The mitral valve leaflets are mildly thickened. There is trace of mitral regurgitation. There is no evidence of mitral stenosis. Tricuspid Valve: There is mild tricuspid regurgitation. The right ventricular systolic pressure is calculated at 44 mmHg. There is evidence of mild pulmonary hypertension. Pulmonic Valve: There is trace pulmonic regurgitation. Pericardium: There is no pericardial effusion. Aorta: There is no dilatation of the ascending aorta. There is no dilatation of the aortic root. Venous: The inferior vena cava is dilated. Measurements Chambers 2D Name Value Normal Range IVSd (2D) 1 cm (0.6 - 1.1) LVPWd (2D) 1.01 cm (0.6 - 1.1) LVIDd (2D) 4.58 cm (3.7 - 5.6) LVIDs (2D) 3.17 cm (2 - 3.8) LV FS (2D) 30.93 % - EF Teichholz (2D) 58.66 % - Ao root diameter (2D) 2.94 cm (2 - 3.7) Volumes/Mass Name Value Normal Range LA ESV SP 4CH (A/L) 72.82 ml - LA ESV SP 2CH (A/L) 66.86 ml - LA ESV BP (A/L) 74.49 ml - LA ESV SP 4CH (MOD) 71.03 ml - LA ESV SP 2CH (MOD) 64.3 ml - LV EDV SP 4CH (MOD) 98.82 ml - LV ESV SP 4CH (MOD) 24.8 ml - EF SP 4CH (MOD) 74.9 % - LV EDV SP 2CH (MOD) 86.1 ml - LV ESV SP 2CH (MOD) 36.93 ml - EF SP 2CH (MOD) 57.11 % - LV EDV BP 94.4 ml - LV ESV BP 32.66 ml - BP EF (MOD) 65.4 % - Diastolic/Systolic Function Name Value Normal Range MV E-wave Vmax 1.04 m/sec - MV deceleration time 160.46 msec - MV A-wave Vmax 0.92 m/sec - MV E:A ratio 1.14 ratio - Aortic Valve Name Value Normal Range AV Vmax 2.12 m/sec - AV VTI 22.37 cm - AV peak gradient 17.95 mmHg - AV mean gradient 7.29 mmHg - LVOT diameter 2.01 cm - LVOT Vmax 1.8 m/sec - LVOT VTI 27.17 cm - LVOT peak gradient 12.91 mmHg - LVOT mean gradient 6.83 mmHg - SV LVOT 86.42 ml - ANITA (continuity Vmax) 2.7 cm2 - ANITA (continuity VTI) 3.86 cm2 - Ascending Ao 3.18 cm - Tricuspid Valve Name Value Normal Range TV E-wave Vmax 0.88 m/sec - TR Vmax 3.01 m/sec - TR peak gradient 36.27 mmHg - RAP 8 mmHg - RVSP 44 mmHg - IVC diameter 2.65 cm (1.2 - 2.3) Pulmonic Valve/Qp:Qs Name Value Normal Range PV Vmax 1.22 m/sec - PV peak gradient 5.91 mmHg - RVOT Vmax 0.87 m/sec - RVOT VTI 13.32 cm - RVOT peak gradient 3 mmHg - PV acceleration time 110.37 msec - [place]/IV: Voiding Method External Female Catheter IV Catheter Type [Right Foot] INT / Saline Lock IV Catheter Type [Left Forearm Peripheral IV ] IV Catheter Type [Left Wrist] INT / Saline Lock IV Catheter Type [Right Hand] INT / Saline Lock IV Catheter Type [Right INT / Saline Lock Antecubital] IV Catheter Type [Right Upper Mid-line arm] IV Catheter Type [Left Triple Lumen Cath Internal Jugular] IV Catheter Type [Left Hand] Peripheral IV IV Catheter Type [Left Peripheral IV Antecubital] Active Medications - Current Medications Current Medications: Generic Name Dose Route Start Last Admin Trade Name Freq PRN Reason Stop Dose Admin Acetaminophen 650 mg 10/05/20 16:34 12/26/20 00:24 Acetaminophen 325 Mg/10.15 Ml Oral Liqd Unit Dose FEEDTUBE 650 mg Q6H PRN Administration Non Cardiac Pain or Temp>100.5 Albuterol 2.5 mg 11/05/20 13:03 11/06/20 13:04 Albuterol 2.5 Mg/3 Ml Nebu IH 2.5 mg Q4HRT PRN Administration Shortness Of Breath Lipase/Protease/Amylase 1 each 10/05/20 11:09 Lipase 10,500/Protease 25,000/Amylase 43,750 (Units) Dr Barakat FEEDTUBE PRN PRN For Clogged Feeding Tube Enoxaparin Sodium 40 mg 10/22/20 10:00 12/25/20 10:25 Enoxaparin 40 Mg/0.4 Ml Inj SUB-Q 40 mg DAILY ERINN Administration Protocol Famotidine 20 mg 10/07/20 10:00 12/25/20 21:48 Famotidine 20 Mg Tab PO 20 mg BID ERINN Administration Furosemide 20 mg 12/24/20 10:00 12/25/20 10:25 Furosemide 20 Mg Tab PO 20 mg QAM ERINN Administration Hydralazine HCl 20 mg 10/07/20 11:49 10/17/20 07:20 Hydralazine 20 Mg/1 Ml Inj IV 20 mg Q6H PRN Administration SBP >170 Metoprolol Tartrate 12.5 mg 12/23/20 13:00 12/25/20 21:48 Metoprolol Tartrate 25 Mg Tab PO Not Given BID ERINN Simple Syrup 15 ml 10/05/20 11:09 Simple Syrup 15 Ml FEEDTUBE PRN PRN Hypoglycemia Simple Syrup 30 ml 10/05/20 11:09 Simple Syrup 15 Ml FEEDTUBE PRN PRN Hypoglycemia Sodium Bicarbonate 325 mg 10/05/20 11:09 12/16/20 08:19 Sodium Bicarbonate 325 Mg Tab FEEDTUBE 325 mg PRN PRN Administration For Clogged Feeding Tube Nutrition/Malnutrition Assess - Dietary Evaluation Nutrition/Malnutrition Findings: Nutrition Notes Start: 10/04/20 11:13 Freq: Status: Active Protocol: Document 12/25/20 09:49 MK (Rec: 12/25/20 09:53 MK [id number]) Nutrition Notes Initial or Follow up Reassessment Current Diagnosis Respiratory Failure Other Pertinent Diagnosis C-Diff, Cardiac arrest, s/p c- section and supracervical hysterectomy, Brain Current Diet Jevity 1.2 at 60 mL/hr Labs/Tests Reviewed Pertinent Medications Reviewed Height 5 ft 8 in Weight 99.5 kg [place] Body Weight (kg) 63.63 BMI 33.3 Weight Status Obese Subjective/Other Information FU for TF tolerance. Observed Jevity 1.2 running at 70 ml/hr . Per RN, pt tolerating. Pt awaiting placement. Percent of energy/protein needs met: 96%/100% Burn Absent Trauma Absent GI Symptoms None Food Allergy Yes Current % PO Negligible Minimum of two criteria Yes Interpretation of Weight Loss (severe) >2% in 1 week Fluid Accumulation Mild (non-severe) #2 Nutrition Diagnosis Malnutrition Diagnosis Progress(for reassessment Continues documentation) #1 Nutrition Diagnosis Inadequate oral intake Diagnosis Progress(for reassessment Continues documentation) Is patient on ventilator? No Is Patient Ambulatory and/or Out of Bed No REE-([facility]-confined to bed) 2106.084 Kcal/Kg value to use for calculation 18 Approximate Energy Requirements Using 1791 kcal/Kg Calculation Used for Recommendations Kcal/kg Additional Notes PRO needs: 65-81 (0.8-1 g/kg AdBW 81kg) Fluid needs: 1 mL/kcal or per MD Nutrition Intervention Change Diet Order: Continue TF Nutrition Support: Jevity 1.2 at 60ml/hr. Flush 100ml q4h. Flush 250 ml q4h for Hypernatremia. Once hypernatremia is resolved, flush 100 q4h. Kcal 1,728 Protein (gm) 80 Fluid (mL) 1,162 Goal #1 TF tolerance Goal #2 Meet at least 75% of energy and protein needs via TF Anticipated Discharge Needs: Jevity 1.2 at 60ml/hr. Flush 100ml q4h. Follow-Up By: 01/01/21 Additional Comments FU for stable TF
[2020-12-26] MEDS: FUROSEMIDE 20 MG TAB PO SCH (10:48)
[2020-12-26] MEDS: METOPROLOL TARTRATE 25 MG TAB PO SCH ×2 (10:48→22:22)
[2020-12-26] MEDS: FAMOTIDINE 20 MG TAB PO SCH ×2 (10:48→22:23)
[2020-12-26] MEDS: ENOXAPARIN 40 MG/0.4 ML INJ SUB-Q SCH (10:48)
[2020-12-27] MEDS: ENOXAPARIN 40 MG/0.4 ML INJ SUB-Q SCH (09:03)
[2020-12-27] MEDS: FUROSEMIDE 20 MG TAB PO SCH (09:03)
[2020-12-27] MEDS: FAMOTIDINE 20 MG TAB PO SCH ×2 (09:04→22:10)
[2020-12-27] MEDS: METOPROLOL TARTRATE 25 MG TAB PO SCH ×2 (09:04→22:16)
--- NOTE | 2020-12-27 10:10 | Progress Note ---
Assessment and Plan Assessment and plan: Eclampsia/HELLP Syndrome, ADOLPH, DIC; s/p , s/p supracervical hyst 30 year old -[place] female CHE 10/25/20 at 36w5d who presents with seizures in triage on 10/02/20. Pt was not able to provide history but per pt's , she presented to the hospital to return a 24 hour urine specimen for analysis. She then suddenly reported that she did not feel good. She was taken to labor and delivery and shortly after arrival, she began seizing. During this time, a code met was called because the patient became hypoxic. She was then noted to be without a pulse. Chest compressions were started immediately, and the patient was emergently taken to the operating room for delivery of the fetus. Off note, This patient has had care at [facility] with comanagement by [facility] since 11 wks complicated by ADHD, morbid obesity, generalized anxiety disorder, panic attacks, chronic narcotic use, fibromyalgia, GERD, Irritable Bowel Syndrome, Migraines, h/o endometrial ablation and ovarian vein embolization, genital herpes, insomnia, LGA fetus, nausea and vomiting, polyhydramnios, quad screen positive for Down's Syndrome, and previous x 3. She is GBS negative. Hospital course 11:30: Pt brought to L&D triage for evaluation of possible labor. Pt accompanied by her spouse. Pt spouse poor historian; unable to obtain history- allergies at this time. Pt taken from registration to triage area via WC. Pt unresponsive, actively seizing with snorous respirations. piece dye worker, Kassy, called and requesting assistance. 11:35: Multiple staff at bedside. Pt 02 sat 67% on nonrebreather, unable to read BP at this time. Yifan Theodore CRNA, at bedside for intubation and assistance with IV insertion. INT attempt by multiple RNs unsuccessful at this time. 11:42: Pt being bagged by KORIN, 02% 79%. No pulse palpated, compressions started at this time; bharati young called and Dr. Newberry preparing OR for emergent c/s. 11:44: Continued compressions on stretcher while transporting pt to OR 1. Pt being bagged with jaw thrust manuever in place by KORIN Stringer student. 11:45: Arrival to OR 1. Dr. Newberry and Dr. Portillo present for emergent c/s. Code team arrived for continued care. patient revived and c/s done Patient has been bleeding from C/s site followed by supracervical hysterectomy for severe bleeding Patient transfused multiple units of PRBC, Patient in DIC. Transferred to the ICU 10/03. Patient seen and examined at bedside this morning. Patient is nonresponsive and mechanically ventilated. On pressors. Labs reviewed-has leukocytosis, anemia, thrombocytopenia, ADOLPH and lactic acidosis. Started on IV antibiotics to cover possible sepsis secondary to DIC. Hematology oncology recommendations appreciated-needs additional cryoprecipitate and FFP. Monitor D-dimer, fibrinogen and frequent labs. Nephrology consulted for lactic acidosis and ADOLPH. 10/04. Remains mechanically ventilated. Kevin antibiotics. Labs shows improved acidosis - lactic acid 3.5. Hb drop noted. Getting transfused 2 units PRBCs. Platelet count is ~40k. Continue to monitor labs closely. Critical care team on board. 10/05; xray reviewed, concerning for multifocal infilrate, likely underlying Pneumonia, will add ID consult to assist with management of this critically ill patient, start tube feed, closely monitor renal system 10/06: Resumed care, remains on mechanical ventilation. No active bleeding, H&H stable. Continue to monitor CBC and BMP. Continue IV antibiotic for underlying pneumonia. Follow critical care and ID recommendation. 10/07: Remains on mechanical ventilation. No active bleeding, H&H stable. Critical care following, wean off ventilation as tolerated. 10/08: Patient had another cardiac arrest last night. Remains on mechanical ventilation, update family. Continue supportive care -poor prognosis 10/09: Called patient mother and discussed about patient care and management. Answered all question to best of my knowledge and family satisfaction. Patient remains on mechanical ventilation, cardiac arrest x2 so far. Critically sick, poor prognosis 10/10: remains on mechanical ventilation. h/h stable, no active bleeding. monitor CBC/BMP 10/11: WBC trended up with diarrhea, started on vancomycin po. remains on MV, off pressor, tolerating TF 10/12: remains on MV, off pressor, tolerating TF. called family for update but unable to reach, could not leave message as it was full. cont supportive care, wean off vent as tolerated. 10/13/2020; patient is on mechanical ventilation, tolerating tube feeding. Patient has labored breathing. Neuro was consulted and recommend MRI. Patient is on Precedex. Rectal tube in place. 10/14/2020; patient is on mechanical ventilation, Precedex. Patient had fever and blood culture ordered. Patient is on IV vancomycin per ID recommendation. Neuro consulted and recommend MRI. Continue to monitor. Prognosis is guarded. 10/15/2020; patient is on mechanical ventilation, Precedex. Patient had fever and blood culture ordered. Patient is on IV vancomycin per ID recommendation. Neuro consulted and recommend MRI. Continue to monitor. Prognosis is guarded. 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 12/06/20; anoxic brain injury. Awaiting placement. 12/07/2020; anoxic brain injury, awaiting placement. 12/09/2020; anoxic brain injury, awaiting placement. 12/10/2020; patient had episodes of fever overnight. CBC, BMP, blood culture, UA and chest x-ray ordered, will follow and manage accordingly. Urinalysis is suggestive of UTI and I put the patient on ceftriaxone, order urine culture. Chest x-ray is normal. 12/11/2020; patient is on ceftriaxone day 2 for UTI. We will continue to follow urine culture. 12/12/2020. Day #3 of Rocephin for UTI. We will continue for 2 more days while she is here. Present UTI. 12/13/2020. Day #4 of Rocephin for UTI. Patient remains on 50% with tracheostomy. Remains unresponsive with evidence of anoxic encephalopathy unable to make needs known. 12/14/2020. Day #5 of Rocephin for UTI completed today. Remains encephalopathic unable to make needs known. Remains on 50% unable to decrease oxygen via tracheostomy. Overall prognosis remains extremely poor. 32: Continue to monitor. Stop and monitor antibiotics at this time. Continue to wean oxygen as tolerated. Wean oxygen as tolerated. Case management working on placement. 12/16: Continue supportive care aspiration precautions. Awaiting placement discussion. Monitor fever curve. Prognosis remains poor no evidence of ne urological recovery as of today 3/: Continue supportive care, check labs and chest xray. Still monitor off antibiotics. Monitor Sodium level 12/18: Patient remains with intermittent low grade fever, reviewed EEG from September again, consistent for Ischemic Hypoxic Encephalopathy, patient with decorticating posturing type presentation. Will discuss with information consultant to optimize diet so we can discontinue D5. CXR with no abnormality. Discussed extensively with the nursing staff at bedside CXR IMPRESSION: 1. No acute findings. 12/19: No clinical change 12/20: No clinical change, now off abx, monitor, discussed her medications with our pharmacist I believe that her posture and rigidity is likely from underlying anoxic encephalopathy. Continue to monitor and await placement decision. Continue aggressive suctioning. Plan discussed in detail with the nursing staff 12/21: Continue supportive care. Will give 500 cc bolus of fluid today to replace insensible losses. Tachycardia appears to be improving. Blood pressure precludes adjusting cardiac meds. Still awaiting placement from case doreen gil. Plan discussed in detail with the nursing staff 12/22. Continue support supportive care. Tracheostomy and PEG in place. Remains nonresponsive. Awaiting placement. 12/23. Continue support supportive care. Tracheostomy and PEG in place. Remains nonresponsive. Awaiting placement. Remains tachycardic. Decrease dose of lasix. Will try low dose metoprolol. Monitor BP closely 12/24. Continue support supportive care. Tracheostomy and PEG in place. Remains nonresponsive. Awaiting placement. Heart rate slightly better. Continue to monitor BP closely 12/25. Continue support supportive care. Tracheostomy and PEG in place. Remains nonresponsive. Awaiting placement. 12/26. Continue support supportive care. Tracheostomy and PEG in place. Remains nonresponsive. Awaiting placement 12/27. Continue support supportive care. Tracheostomy and PEG in place. Remains nonresponsive. Awaiting placement Problems -- Sepsis with presumed Pneumonia Resolved --DIC (disseminated intravascular coagulation) vs HELLP syndrome Resolved --Possible Eclampsia/HELLP Syndrome Resolved --s/p Cardiac arrest x2 on admission and on 10/07 ACLS protocol followed by revival Echo showed preserved Ef --Shock-resolved now awaiting placement s/p pressor support Overall prognosis extremely poor. --ADOLPH-resolved Stable --DVT prophylaxis Patient presented with DIC No anticoagulants Sepsis 2/2 UTI Started on ceftriaxone 12/28. Previous urine culture grew pansensitive ecoli History Interval history: Trach in place Not responsive to calls Hospitalist Physical - Physical exam Narrative exam: VITAL SIGNS: Reviewed. GENERAL: Trach in place HEAD: No signs of head trauma. EYES: Pupils are equal. NECK: No adenopathy, no JVD. CHEST: Diminished breath sounds CARDIAC: normal S1 and S2, without murmurs, gallops, or rubs. ABDOMEN: Soft, non tender and non distended. No rebound or guarding, and no masses palpated. Bowel Sounds normal MUSCULOSKELETAL: No edema NEUROLOGIC EXAM: Not responsive SKIN: No obvious lesions - Constitutional Vitals: Temp Pulse Resp BP Pulse Ox 99.8 F H 109 H 16 120/79 97 12/27/20 04:13 12/27/20 09:04 12/27/20 04:13 12/27/20 09:04 12/27/20 05:29 HEART Score - HEART Score Age: < 45 Risk factors: 1-2 risk factors - Critical Actions Critical Actions: >7 pts:50-65% risk of adverse cardiac event. Early invasive measures Results - Labs CBC & Chem 7: 12/18/20 04:57 12/22/20 11:03 Labs: Laboratory Last Values WBC 8.6 K/mm3 (4.5-11.0) 12/18/20 04:57 RBC 5.16 M/mm3 (3.65-5.03) H 12/18/20 04:57 Hgb 13.0 gm/dl (10.1-14.3) 12/18/20 04:57 Hgb Comment See scanned result 10/04/20 Unknown Hct 41.6 % (30.3-42.9) 12/18/20 04:57 MCV 81 fl (79-97) 12/18/20 04:57 MCH 25 pg (28-32) L 12/18/20 04:57 MCHC 31 % (30-34) 12/18/20 04:57 RDW 14.5 % (13.2-15.2) 12/18/20 04:57 Plt Count 258 K/mm3 (140-440) 12/18/20 04:57 Lymph % (Auto) 24.1 % (13.4-35.0) 12/14/20 10:32 [place] % (Auto) 7.8 % (0.0-7.3) H 12/14/20 10:32 Eos % (Auto) 1.5 % (0.0-4.3) 12/14/20 10:32 Baso % (Auto) 0.3 % (0.0-1.8) 12/14/20 10:32 Lymph # (Auto) 2.5 K/mm3 (1.2-5.4) 12/14/20 10:32 [place] # (Auto) 0.8 K/mm3 (0.0-0.8) 12/14/20 10:32 Eos # (Auto) 0.2 K/mm3 (0.0-0.4) 12/14/20 10:32 Baso # (Auto) 0.0 K/mm3 (0.0-0.1) 12/14/20 10:32 Add Manual Diff Complete 12/10/20 09:37 Total Counted 100 12/10/20 09:37 Seg Neutrophils % 66.3 % (40.0-70.0) 12/14/20 10:32 Seg Neuts % (Manual) 81.0 % (40.0-70.0) H 12/10/20 09:37 Band Neutrophils % 2.0 % 10/15/20 05:50 Lymphocytes % (Manual) 17.0 % (13.4-35.0) 12/10/20 09:37 Reactive Lymphs % (Man) 1.0 % 10/02/20 12:18 Monocytes % (Manual) 2.0 % (0.0-7.3) 12/10/20 09:37 Eosinophils % (Manual) 1.0 % (0.0-4.3) 10/29/20 07:56 Myelocytes % 2.0 % 10/02/20 13:05 Metamyelocytes % 1.0 % 10/14/20 04:00 Nucleated RBC % Not Reportable 12/10/20 09:37 Seg Neutrophils # 6.8 K/mm3 (1.8-7.7) 12/14/20 10:32 Seg Neutrophils # Man 10.1 K/mm3 (1.8-7.7) H 12/10/20 09:37 Band Neutrophils # 0.0 K/mm3 12/10/20 09:37 Lymphocytes # (Manual) 2.1 K/mm3 (1.2-5.4) 12/10/20 09:37 Abs React Lymphs (Man) 0.0 K/mm3 12/10/20 09:37 Monocytes # (Manual) 0.3 K/mm3 (0.0-0.8) 12/10/20 09:37 Eosinophils # (Manual) 0.0 K/mm3 (0.0-0.4) 12/10/20 09:37 Basophils # (Manual) 0.0 K/mm3 (0.0-0.1) 12/10/20 09:37 Metamyelocytes # 0.0 K/mm3 12/10/20 09:37 Myelocytes # 0.0 K/mm3 12/10/20 09:37 Promyelocytes # 0.0 K/mm3 12/10/20 09:37 Blast Cells # 0.0 K/mm3 12/10/20 09:37 WBC Morphology Not Reportable 12/10/20 09:37 Hypersegmented Neuts Not Reportable 12/10/20 09:37 Hyposegmented Neuts Not Reportable 12/10/20 09:37 Hypogranular Neuts Not Reportable 12/10/20 09:37 Smudge Cells Not Reportable 12/10/20 09:37 Toxic Granulation Not Reportable 12/10/20 09:37 Toxic Vacuolation Not Reportable 12/10/20 09:37 Dohle Bodies Not Reportable 12/10/20 09:37 Pelger-Huet Anomaly Not Reportable 12/10/20 09:37 Ester Rods Not Reportable 12/10/20 09:37 Platelet Estimate Consistent w auto 12/10/20 09:37 Clumped Platelets Not Reportable 12/10/20 09:37 Plt Clumps, EDTA Not Reportable 12/10/20 09:37 Large Platelets Not Reportable 12/10/20 09:37 Giant Platelets Not Reportable 12/10/20 09:37 Platelet Satelliting Not Reportable 12/10/20 09:37 Plt Morphology Comment Not Reportable 12/10/20 09:37 RBC Morphology Normal 12/10/20 09:37 Dimorphic RBCs Not Reportable 12/10/20 09:37 Polychromasia Not Reportable 12/10/20 09:37 Hypochromasia 1+ 12/10/20 09:37 Poikilocytosis Not Reportable 12/10/20 09:37 Anisocytosis Not Reportable 12/10/20 09:37 Microcytosis Not Reportable 12/10/20 09:37 Macrocytosis Not Reportable 12/10/20 09:37 Spherocytes Not Reportable 12/10/20 09:37 Pappenheimer Bodies Not Reportable 12/10/20 09:37 Sickle Cells Not Reportable 12/10/20 09:37 Target Cells Not Reportable 12/10/20 09:37 Tear Drop Cells Not Reportable 12/10/20 09:37 Ovalocytes Not Reportable 12/10/20 09:37 Stomatocytes Few 10/14/20 04:00 Helmet Cells Not Reportable 12/10/20 09:37 [place] Bodies Not Reportable 12/10/20 09:37 [place] Rings Not Reportable 12/10/20 09:37 Antoine Cells Not Reportable 12/10/20 09:37 Bite Cells Not Reportable 12/10/20 09:37 Crenated Cell Not Reportable 12/10/20 09:37 Elliptocytes Not Reportable 12/10/20 09:37 Acanthocytes (Spur) Not Reportable 12/10/20 09:37 Rouleaux Not Reportable 12/10/20 09:37 Hemoglobin C Crystals Not Reportable 12/10/20 09:37 Schistocytes Not Reportable 12/10/20 09:37 Malaria parasites Not Reportable 12/10/20 09:37 Sickle Cell Solubility See scanned result 10/04/20 Unknown Hemoglobin A See scanned result 10/04/20 Unknown Hemoglobin A2 See scanned result 10/04/20 Unknown Hemoglobin A2 Prime See scanned result 10/04/20 Unknown Hemoglobin C See scanned result 10/04/20 Unknown Hemoglobin D See scanned result 10/04/20 Unknown Hemoglobin E See scanned result 10/04/20 Unknown Hgb F Diffential Stain See scanned result 10/04/20 Unknown Hemoglobin F Quant See scanned result 10/04/20 Unknown Hemoglobin G See scanned result 10/04/20 Unknown Hemoglobin S See scanned result 10/04/20 Unknown Hemoglobin [place] See scanned result 10/04/20 Unknown Hemoglobin [place] See scanned result 10/04/20 Unknown Hemoglobin Analilia See scanned result 10/04/20 Unknown Variant Hemoglobin See scanned result 10/04/20 Unknown Abnorm Hgb IEF Confirm See scanned result 10/04/20 Unknown Hemoglobin Interpret See scanned result 10/04/20 Unknown Hemoglobinopathy Note See scanned result 10/04/20 Unknown Sharad Bodies Not Reportable 12/10/20 09:37 Hem Pathologist Commnt No 12/10/20 09:37 PT 13.6 Sec. (12.2-14.9) 10/21/20 13:54 INR 1.06 (0.87-1.13) 10/21/20 13:54 APTT 31.6 Sec. (24.2-36.6) 10/03/20 00:40 Fibrinogen 336 mg/dl (211-480) 10/04/20 10:00 D-Dimer 1974.47 ng/mlDDU (0-234) H 11/11/20 13:50 ABG pH 7.459 pH Units (7.350-7.450) H 10/26/20 10:30 POC ABG pCO2 20.7 mmHg (32.0-48.0) L 10/13/20 07:18 ABG pCO2 32.4 mm Hg 10/26/20 10:30 POC ABG pO2 137.9 mmHg (83-108) H 10/13/20 07:18 ABG pO2 112.2 mm Hg (80.0-90.0) H 10/26/20 10:30 POC ABG HCO3 14.8 10/13/20 07:18 ABG HCO3 22.5 mmol/L (20.0-26.0) 10/26/20 10:30 ABG O2 Saturation 98.2 % (95.0-99.0) 10/26/20 10:30 ABG O2 Content 18.5 (0.0-44) 10/26/20 10:30 POC ABG Base Excess -6.9 10/13/20 07:18 ABG Base Excess -0.6 mmol/L (-2.0-3.0) 10/26/20 10:30 ABG Hemoglobin 13.5 gm/dl (12.0-16.0) 10/26/20 10:30 ABG Oxyhemoglobin 98.3 (94-98) H 10/13/20 07:18 ABG Carboxyhemoglobin 1.3 % (0.0-5.0) 10/26/20 10:30 ABG Methemoglobin 0.5 % (0.0-1.5) 10/26/20 10:30 ABG Sodium 135.9 mmol/L (136.0-145.0) L 10/13/20 07:18 ABG Potassium 3.7 mmol/L (3.40-4.50) 10/13/20 07:18 ABG Chloride 111.0 mmol/L (98-107) H 10/13/20 07:18 ABG Glucose 109 mg/dL (65-95) H 10/13/20 07:18 VBG pH 6.949 (7.320-7.420) L* 10/02/20 Unknown Oxyhemoglobin 96.5 % (95.0-99.0) 10/26/20 10:30 Carboxyhemoglobin 0.3 (0.5-1.5) L 10/13/20 07:18 FiO2 25 % 10/26/20 10:30 Sodium 138 mmol/L (137-145) D 12/22/20 11:03 Potassium 3.9 mmol/L (3.6-5.0) 12/22/20 11:03 Chloride 101.0 mmol/L (98-107) 12/22/20 11:03 Carbon Dioxide 25 mmol/L (22-30) 12/22/20 11:03 Anion Gap 16 mmol/L 12/22/20 11:03 BUN 10 mg/dL (7-17) 12/22/20 11:03 Creatinine 0.5 mg/dL (0.6-1.2) L 12/22/20 11:03 Estimated GFR > 60 ml/min 12/22/20 11:03 BUN/Creatinine Ratio 20 % 12/22/20 11:03 Glucose 110 mg/dL (65-100) H 12/22/20 11:03 POC Glucose 92 mg/dL (70-105) 12/27/20 05:46 Random Insulin 43.2 uIU/mL (<=19.6) H 11/02/20 19:19 Proinsulin See scanned result 11/02/20 19:19 C-Peptide 6.23 ng/mL (0.80-3.85) H 11/02/20 19:19 Lactic Acid 1.90 mmol/L (0.7-2.0) 10/04/20 22:00 Uric Acid 7.5 mg/dL (3.5-7.6) 10/02/20 13:05 Calcium 9.5 mg/dL (8.4-10.2) 12/22/20 11:03 Ionized Calcium 4.4 mg/dL (4.8-5.6) L 10/07/20 21:00 Phosphorus 4.60 mg/dL (2.5-4.5) H 11/13/20 10:05 Magnesium 2.10 mg/dL (1.7-2.3) 11/13/20 10:05 Total Bilirubin 0.40 mg/dL (0.1-1.2) 12/22/20 11:03 AST 45 units/L (5-40) H 12/22/20 11:03 ALT 33 units/L (7-56) 12/22/20 11:03 Alkaline Phosphatase 100 units/L (35-129) 12/22/20 11:03 Lactate Dehydrogenase 769 units/L (91-180) H 10/02/20 13:05 C-Reactive Protein 0.70 mg/dL (0.00-1.30) 11/11/20 13:50 NT-Pro-B Natriuret Pep 2788 pg/mL (0-450) H 10/04/20 10:00 Total Protein 7.5 g/dL (6.3-8.2) 12/22/20 11:03 Albumin 3.8 g/dL (3.9-5) L 12/22/20 11:03 Albumin/Globulin Ratio 1.0 % 12/22/20 11:03 Procalcitonin < 0.05 ng/mL (<0.15) 11/11/20 13:50 Arterial Blood Glucose 109 mg/dL (65-95) H 10/13/20 07:18 Arterial Blood Ionized Calcium 4.6 mg/dL (4.6-5.3) 10/13/20 07:18 Urine Color Kelsey (Yellow) 12/10/20 09:25 Urine Turbidity Cloudy (Clear) 12/10/20 09:25 Urine pH 7.0 (5.0-7.0) 12/10/20 09:25 Ur Specific Adrian 1.027 (1.003-1.030) 12/10/20 09:25 Urine Protein 100 mg/dl mg/dL (Negative) 12/10/20 09:25 Urine Glucose (UA) Neg mg/dL (Negative) 12/10/20 09:25 Urine Ketones Neg mg/dL (Negative) 12/10/20 09:25 Urine Blood Sm (Negative) 12/10/20 09:25 Urine Nitrite Neg (Negative) 12/10/20 09:25 Urine Bilirubin Neg (Negative) 12/10/20 09:25 Urine Urobilinogen 4.0 mg/dL (<2.0) 12/10/20 09:25 Ur Leukocyte Esterase Mod (Negative) 12/10/20 09:25 Urine WBC (Auto) 50.0 /HPF (0.0-6.0) H 12/10/20 09:25 Urine RBC (Auto) 27.0 /HPF (0.0-6.0) 12/10/20 09:25 U Epithel Cells (Auto) 8.0 /HPF (0-13.0) 12/10/20 09:25 Urine Bacteria (Auto) 4+ /HPF (Negative) 11/11/20 13:50 Urine WBC Clumps 3+ /HPF 11/11/20 13:50 Calcium Oxalate Crystal Few 11/11/20 13:50 Urine Mucus Few /HPF 11/11/20 13:50 Urine Yeast (Budding) 2+ /HPF 12/10/20 09:25 Vancomycin Trough 12.6 ug/mL (5.0-20.0) 10/21/20 13:54 Random Vancomycin 10.7 ug/mL (0-40.0) 10/16/20 13:09 Phenytoin 5.7 ug/mL (10.0-20.0) L 10/13/20 07:00 C. difficile Tox (PCR) Positive (Negative) 10/16/20 10:22 Coronavirus (PCR) Negative (Negative) 10/08/20 14:15 Blood Type O POSITIVE 10/02/20 12:50 Antibody Screen Negative 10/02/20 12:50 Crossmatch See Detail 10/02/20 12:50 - Diagnostic Impressions Diagnostic Impressions: Echocardiogram 10/03/20 13:42 Transthoracic Echocardiogram Indication: S/P Cardiac Arrest R/O Cardiomyopathy BP: 133/71 Conclusions *Global left ventricular systolic function is normal. *The estimated ejection fraction is 60-65%. *There is trace of mitral regurgitation. *The right 0heart chambers are both slightly dilated. *There is mild tricuspid regurgitation. *There is mild-moderate pulmonary hypertension. *The right ventricular systolic pressure is calculated at 44 mmHg. *The study quality is technically difficult. Findings Procedure Info: The study quality is technically difficult. The study is technically limited due to patient body habitus. The study was technically limited due to the patient's inability to lay in the left lateral decubitus position. Left Ventricle: The left ventricular chamber size is normal. There is no left ventricular hypertrophy. Global left ventricular systolic function is normal. The estimated ejection fraction is 60-65%. Left Atrium: The left atrial chamber size is normal. Right Ventricle: The right ventricle is slightly dilated. Right Atrium: The right atrium is mildly dilated. Aortic Valve: The aortic valve leaflets are mildly thickened. There is no evidence of aortic regurgitation. There is no evidence of aortic stenosis. Mitral Valve: The mitral valve leaflets are mildly thickened. There is trace of mitral regurgitation. There is no evidence of mitral stenosis. Tricuspid Valve: There is mild tricuspid regurgitation. The right ventricular systolic pressure is calculated at 44 mmHg. There is evidence of mild pulmonary hypertension. Pulmonic Valve: There is trace pulmonic regurgitation. Pericardium: There is no pericardial effusion. Aorta: There is no dilatation of the ascending aorta. There is no dilatation of the aortic root. Venous: The inferior vena cava is dilated. Measurements Chambers 2D Name Value Normal Range IVSd (2D) 1 cm (0.6 - 1.1) LVPWd (2D) 1.01 cm (0.6 - 1.1) LVIDd (2D) 4.58 cm (3.7 - 5.6) LVIDs (2D) 3.17 cm (2 - 3.8) LV FS (2D) 30.93 % - EF Teichholz (2D) 58.66 % - Ao root diameter (2D) 2.94 cm (2 - 3.7) Volumes/Mass Name Value Normal Range LA ESV SP 4CH (A/L) 72.82 ml - LA ESV SP 2CH (A/L) 66.86 ml - LA ESV BP (A/L) 74.49 ml - LA ESV SP 4CH (MOD) 71.03 ml - LA ESV SP 2CH (MOD) 64.3 ml - LV EDV SP 4CH (MOD) 98.82 ml - LV ESV SP 4CH (MOD) 24.8 ml - EF SP 4CH (MOD) 74.9 % - LV EDV SP 2CH (MOD) 86.1 ml - LV ESV SP 2CH (MOD) 36.93 ml - EF SP 2CH (MOD) 57.11 % - LV EDV BP 94.4 ml - LV ESV BP 32.66 ml - BP EF (MOD) 65.4 % - Diastolic/Systolic Function Name Value Normal Range MV E-wave Vmax 1.04 m/sec - MV deceleration time 160.46 msec - MV A-wave Vmax 0.92 m/sec - MV E:A ratio 1.14 ratio - Aortic Valve Name Value Normal Range AV Vmax 2.12 m/sec - AV VTI 22.37 cm - AV peak gradient 17.95 mmHg - AV mean gradient 7.29 mmHg - LVOT diameter 2.01 cm - LVOT Vmax 1.8 m/sec - LVOT VTI 27.17 cm - LVOT peak gradient 12.91 mmHg - LVOT mean gradient 6.83 mmHg - SV LVOT 86.42 ml - ANITA (continuity Vmax) 2.7 cm2 - ANITA (continuity VTI) 3.86 cm2 - Ascending Ao 3.18 cm - Tricuspid Valve Name Value Normal Range TV E-wave Vmax 0.88 m/sec - TR Vmax 3.01 m/sec - TR peak gradient 36.27 mmHg - RAP 8 mmHg - RVSP 44 mmHg - IVC diameter 2.65 cm (1.2 - 2.3) Pulmonic Valve/Qp:Qs Name Value Normal Range PV Vmax 1.22 m/sec - PV peak gradient 5.91 mmHg - RVOT Vmax 0.87 m/sec - RVOT VTI 13.32 cm - RVOT peak gradient 3 mmHg - PV acceleration time 110.37 msec - [place]/IV: Voiding Method External Female Catheter IV Catheter Type [Right Foot] INT / Saline Lock IV Catheter Type [Left Forearm Peripheral IV ] IV Catheter Type [Left Wrist] INT / Saline Lock IV Catheter Type [Right Hand] INT / Saline Lock IV Catheter Type [Right INT / Saline Lock Antecubital] IV Catheter Type [Right Upper Mid-line arm] IV Catheter Type [Left Triple Lumen Cath Internal Jugular] IV Catheter Type [Left Hand] Peripheral IV IV Catheter Type [Left Peripheral IV Antecubital] Active Medications - Current Medications Current Medications: Generic Name Dose Route Start Last Admin Trade Name Freq PRN Reason Stop Dose Admin Acetaminophen 650 mg 10/05/20 16:34 12/26/20 22:23 Acetaminophen 325 Mg/10.15 Ml Oral Liqd Unit Dose FEEDTUBE 650 mg Q6H PRN Administration Non Cardiac Pain or Temp>100.5 Albuterol 2.5 mg 11/05/20 13:03 11/06/20 13:04 Albuterol 2.5 Mg/3 Ml Nebu IH 2.5 mg Q4HRT PRN Administration Shortness Of Breath Lipase/Protease/Amylase 1 each 10/05/20 11:09 Lipase 10,500/Protease 25,000/Amylase 43,750 (Units) Dr Barakat FEEDTUBE PRN PRN For Clogged Feeding Tube Enoxaparin Sodium 40 mg 10/22/20 10:00 12/27/20 09:03 Enoxaparin 40 Mg/0.4 Ml Inj SUB-Q 40 mg DAILY ERINN Administration Protocol Famotidine 20 mg 10/07/20 10:00 12/27/20 09:04 Famotidine 20 Mg Tab PO 20 mg BID ERINN Administration Furosemide 20 mg 12/24/20 10:00 12/27/20 09:03 Furosemide 20 Mg Tab PO 20 mg QAM ERINN Administration Hydralazine HCl 20 mg 10/07/20 11:49 10/17/20 07:20 Hydralazine 20 Mg/1 Ml Inj IV 20 mg Q6H PRN Administration SBP >170 Metoprolol Tartrate 12.5 mg 12/23/20 13:00 12/27/20 09:04 Metoprolol Tartrate 25 Mg Tab PO 12.5 mg BID ERINN Administration Simple Syrup 15 ml 10/05/20 11:09 Simple Syrup 15 Ml FEEDTUBE PRN PRN Hypoglycemia Simple Syrup 30 ml 10/05/20 11:09 Simple Syrup 15 Ml FEEDTUBE PRN PRN Hypoglycemia Sodium Bicarbonate 325 mg 10/05/20 11:09 12/16/20 08:19 Sodium Bicarbonate 325 Mg Tab FEEDTUBE 325 mg PRN PRN Administration For Clogged Feeding Tube Nutrition/Malnutrition Assess - Dietary Evaluation Nutrition/Malnutrition Findings: Nutrition Notes Start: 10/04/20 11:13 Freq: Status: Active Protocol: Document 12/25/20 09:49 (Rec: 12/25/20 09:53 MEY [id number]) Nutrition Notes Initial or Follow up Reassessment Current Diagnosis Respiratory Failure Other Pertinent Diagnosis C-Diff, Cardiac arrest, s/p c- section and supracervical hysterectomy, Brain Current Diet Jevity 1.2 at 60 mL/hr Labs/Tests Reviewed Pertinent Medications Reviewed Height 5 ft 8 in Weight 99.5 kg [place] Body Weight (kg) 63.63 BMI 33.3 Weight Status Obese Subjective/Other Information FU for TF tolerance. Observed Jevity 1.2 running at 70 ml/hr . Per RN, pt tolerating. Pt awaiting placement. Percent of energy/protein needs met: 96%/100% Burn Absent Trauma Absent GI Symptoms None Food Allergy Yes Current % PO Negligible Minimum of two criteria Yes Interpretation of Weight Loss (severe) >2% in 1 week Fluid Accumulation Mild (non-severe) #2 Nutrition Diagnosis Malnutrition Diagnosis Progress(for reassessment Continues documentation) #1 Nutrition Diagnosis Inadequate oral intake Diagnosis Progress(for reassessment Continues documentation) Is patient on ventilator? No Is Patient Ambulatory and/or Out of Bed No REE-([facility]-confined to bed) 2106.084 Kcal/Kg value to use for calculation 18 Approximate Energy Requirements Using 1791 kcal/Kg Calculation Used for Recommendations Kcal/kg Additional Notes PRO needs: 65-81 (0.8-1 g/kg AdBW 81kg) Fluid needs: 1 mL/kcal or per MD Nutrition Intervention Change Diet Order: Continue TF Nutrition Support: Jevity 1.2 at 60ml/hr. Flush 100ml q4h. Flush 250 ml q4h for Hypernatremia. Once hypernatremia is resolved, flush 100 q4h. Kcal 1,728 Protein (gm) 80 Fluid (mL) 1,162 Goal #1 TF tolerance Goal #2 Meet at least 75% of energy and protein needs via TF Anticipated Discharge Needs: Jevity 1.2 at 60ml/hr. Flush 100ml q4h. Follow-Up By: 01/01/21 Additional Comments FU for stable TF
[2020-12-27] MEDS: POLYETHYLENE GLYCOL 3350 17 GM POWDER PO PRN (16:16)
[2020-12-27] MEDS: ACETAMINOPHEN 325 MG/10.15 ML ORAL LIQD UNIT DOSE FEEDTUBE PRN ×2 (17:50→23:57)
--- NOTE | 2020-12-27 18:28 | XRay Report ---
CHEST 1 VIEW 12/27/2020 5:55 PM INDICATION / CLINICAL INFORMATION: Fever. COMPARISON: 12/17/2020 FINDINGS: SUPPORT DEVICES: Satisfactory appearance of the tracheostomy tube. HEART / MEDIASTINUM: Stable. LUNGS / PLEURA: No significant pulmonary or pleural abnormality. No pneumothorax. ADDITIONAL FINDINGS: No significant additional findings. IMPRESSION: 1. No acute findings. Signer Name: Harlan Lee MD Signed: 12/27/2020 6:24 PM Workstation Name: [id number]
[2020-12-27 22:56] LABS: Bacteria,Urine 4+ /HPF (Negative); Bilirubin,Urine NEG (Negative); Blood,Urine SM (Negative); Color,Urine Amber (Yellow); Mucus,Urine 3+ /HPF
[2020-12-28] MEDS ORDERED: cefTRIAXone/NS 1 GM/50 ML 1 GM/50 ML BAG IV SCH (08:00)
[2020-12-28] MEDS: ENOXAPARIN 40 MG/0.4 ML INJ SUB-Q SCH (10:04)
[2020-12-28] MEDS: FUROSEMIDE 20 MG TAB PO SCH (10:04)
[2020-12-28] MEDS: FAMOTIDINE 20 MG TAB PO SCH ×2 (10:04→22:03)
[2020-12-28] MEDS: METOPROLOL TARTRATE 25 MG TAB PO SCH ×2 (10:04→22:03)
[2020-12-28] MEDS: POLYETHYLENE GLYCOL 3350 17 GM POWDER PO PRN (10:05)
--- NOTE | 2020-12-28 13:52 | Progress Note ---
Assessment and Plan Assessment and plan: Eclampsia/HELLP Syndrome, ADOLPH, DIC; s/p , s/p supracervical hyst 30 year old -Vincent[place] female CHE 10/25/20 at 36w5d who presents with seizures in triage on 10/02/20. Pt was not able to provide history but per pt's , she presented to the hospital to return a 24 hour urine specimen for analysis. She then suddenly reported that she did not feel good. She was taken to labor and delivery and shortly after arrival, she began seizing. During this time, a code met was called because the patient became hypoxic. She was then noted to be without a pulse. Chest compressions were started immediately, and the patient was emergently taken to the operating room for delivery of the fetus. Off note, This patient has had care at [facility] with comanagement by [facility] since 11 wks complicated by ADHD, morbid obesity, generalized anxiety disorder, panic attacks, chronic narcotic use, fibromyalgia, GERD, Irritable Bowel Syndrome, Migraines, h/o endometrial ablation and ovarian vein embolization, genital herpes, insomnia, LGA fetus, nausea and vomiting, polyhydramnios, quad screen positive for Down's Syndrome, and previous x 3. She is GBS negative. Hospital course 11:30: Pt brought to L&D triage for evaluation of possible labor. Pt accompanied by her spouse. Pt spouse poor historian; unable to obtain history- allergies at this time. Pt taken from registration to triage area via WC. Pt unresponsive, actively seizing with snorous respirations. photocopying equipment mechanic, Kassy, called and requesting assistance. 11:35: Multiple staff at bedside. Pt 02 sat 67% on nonrebreather, unable to read BP at this time. Yifan Theodore CRNA, at bedside for intubation and assistance with IV insertion. INT attempt by multiple RNs unsuccessful at this time. 11:42: Pt being bagged by KORIN, 02% 79%. No pulse palpated, compressions started at this time; bharati young called and Dr. Newberry preparing OR for emergent c/s. 11:44: Continued compressions on stretcher while transporting pt to OR 1. Pt being bagged with jaw thrust manuever in place by KORIN Stringer student. 11:45: Arrival to OR 1. Dr. Newberry and Dr. Portillo present for emergent c/s. Code team arrived for continued care. patient revived and c/s done Patient has been bleeding from C/s site followed by supracervical hysterectomy for severe bleeding Patient transfused multiple units of PRBC, Patient in DIC. Transferred to the ICU 10/03. Patient seen and examined at bedside this morning. Patient is nonresponsive and mechanically ventilated. On pressors. Labs reviewed-has leukocytosis, anemia, thrombocytopenia, ADOLPH and lactic acidosis. Started on IV antibiotics to cover possible sepsis secondary to DIC. Hematology oncology recommendations appreciated-needs additional cryoprecipitate and FFP. Monitor D-dimer, fibrinogen and frequent labs. Nephrology consulted for lactic acidosis and ADOLPH. 10/04. Remains mechanically ventilated. Kevin antibiotics. Labs shows improved acidosis - lactic acid 3.5. Hb drop noted. Getting transfused 2 units PRBCs. Platelet count is ~40k. Continue to monitor labs closely. Critical care team on board. 10/05; xray reviewed, concerning for multifocal infilrate, likely underlying Pneumonia, will add ID consult to assist with management of this critically ill patient, start tube feed, closely monitor renal system 10/06: Resumed care, remains on mechanical ventilation. No active bleeding, H&H stable. Continue to monitor CBC and BMP. Continue IV antibiotic for underlying pneumonia. Follow critical care and ID recommendation. 10/07: Remains on mechanical ventilation. No active bleeding, H&H stable. Critical care following, wean off ventilation as tolerated. 10/08: Patient had another cardiac arrest last night. Remains on mechanical ventilation, update family. Continue supportive care -poor prognosis 10/09: Called patient mother and discussed about patient care and management. Answered all question to best of my knowledge and family satisfaction. Patient remains on mechanical ventilation, cardiac arrest x2 so far. Critically sick, poor prognosis 10/10: remains on mechanical ventilation. h/h stable, no active bleeding. monitor CBC/BMP 10/11: WBC trended up with diarrhea, started on vancomycin po. remains on MV, off pressor, tolerating TF 10/12: remains on MV, off pressor, tolerating TF. called family for update but unable to reach, could not leave message as it was full. cont supportive care, wean off vent as tolerated. 10/13/2020; patient is on mechanical ventilation, tolerating tube feeding. Patient has labored breathing. Neuro was consulted and recommend MRI. Patient is on Precedex. Rectal tube in place. 10/14/2020; patient is on mechanical ventilation, Precedex. Patient had fever and blood culture ordered. Patient is on IV vancomycin per ID recommendation. Neuro consulted and recommend MRI. Continue to monitor. Prognosis is guarded. 10/15/2020; patient is on mechanical ventilation, Precedex. Patient had fever and blood culture ordered. Patient is on IV vancomycin per ID recommendation. Neuro consulted and recommend MRI. Continue to monitor. Prognosis is guarded. 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 12/06/20; anoxic brain injury. Awaiting placement. 12/07/2020; anoxic brain injury, awaiting placement. 12/09/2020; anoxic brain injury, awaiting placement. 12/10/2020; patient had episodes of fever overnight. CBC, BMP, blood culture, UA and chest x-ray ordered, will follow and manage accordingly. Urinalysis is suggestive of UTI and I put the patient on ceftriaxone, order urine culture. Chest x-ray is normal. 12/11/2020; patient is on ceftriaxone day 2 for UTI. We will continue to follow urine culture. 12/12/2020. Day #3 of Rocephin for UTI. We will continue for 2 more days while she is here. Present UTI. 12/13/2020. Day #4 of Rocephin for UTI. Patient remains on 50% with tracheostomy. Remains unresponsive with evidence of anoxic encephalopathy unable to make needs known. 12/14/2020. Day #5 of Rocephin for UTI completed today. Remains encephalopathic unable to make needs known. Remains on 50% unable to decrease oxygen via tracheostomy. Overall prognosis remains extremely poor. 32: Continue to monitor. Stop and monitor antibiotics at this time. Continue to wean oxygen as tolerated. Wean oxygen as tolerated. Case management working on placement. 12/16: Continue supportive care aspiration precautions. Awaiting placement discussion. Monitor fever curve. Prognosis remains poor no evidence of ne urological recovery as of today 3/: Continue supportive care, check labs and chest xray. Still monitor off antibiotics. Monitor Sodium level 12/18: Patient remains with intermittent low grade fever, reviewed EEG from September again, consistent for Ischemic Hypoxic Encephalopathy, patient with decorticating posturing type presentation. Will discuss with document review specialist to optimize diet so we can discontinue D5. CXR with no abnormality. Discussed extensively with the nursing staff at bedside CXR IMPRESSION: 1. No acute findings. 12/19: No clinical change 12/20: No clinical change, now off abx, monitor, discussed her medications with our pharmacist I believe that her posture and rigidity is likely from underlying anoxic encephalopathy. Continue to monitor and await placement decision. Continue aggressive suctioning. Plan discussed in detail with the nursing staff 12/21: Continue supportive care. Will give 500 cc bolus of fluid today to replace insensible losses. Tachycardia appears to be improving. Blood pressure precludes adjusting cardiac meds. Still awaiting placement from case doreen gil. Plan discussed in detail with the nursing staff 12/22. Continue support supportive care. Tracheostomy and PEG in place. Remains nonresponsive. Awaiting placement. 12/23. Continue support supportive care. Tracheostomy and PEG in place. Remains nonresponsive. Awaiting placement. Remains tachycardic. Decrease dose of lasix. Will try low dose metoprolol. Monitor BP closely 12/24. Continue support supportive care. Tracheostomy and PEG in place. Remains nonresponsive. Awaiting placement. Heart rate slightly better. Continue to monitor BP closely 12/25. Continue support supportive care. Tracheostomy and PEG in place. Remains nonresponsive. Awaiting placement. 12/26. Continue support supportive care. Tracheostomy and PEG in place. Remains nonresponsive. Awaiting placement 12/27. Continue support supportive care. Tracheostomy and PEG in place. Remains nonresponsive. Awaiting placement 12/28. Had fever yesterday. Blood culture drawn. UA - UTI - started on antibio tics. Now tracheal aspirate is growing GN rods. Problems --DIC (disseminated intravascular coagulation) vs HELLP syndrome Resolved --Possible Eclampsia/HELLP Syndrome Resolved --s/p Cardiac arrest x2 on admission and on 10/07 ACLS protocol followed by revival Echo showed preserved Ef --Shock-resolved now awaiting placement s/p pressor support Overall prognosis extremely poor. --ADOLPH-resolved Stable --Sepsis 2/2 UTI Switch ceftriaxone to cefepime to cover possible pseudomonas as sputum is also growing GN rods Previous urine culture grew pansensitive ecoli --DVT prophylaxis Patient presented with DIC No anticoagulants History Interval history: Trach in place Not responsive to calls Hospitalist Physical - Physical exam Narrative exam: VITAL SIGNS: Reviewed. GENERAL: Trach in place HEAD: No signs of head trauma. EYES: Pupils are equal. NECK: No adenopathy, no JVD. CHEST: Diminished breath sounds CARDIAC: normal S1 and S2, without murmurs, gallops, or rubs. ABDOMEN: Soft, non tender and non distended. No rebound or guarding, and no masses palpated. Bowel Sounds normal MUSCULOSKELETAL: No edema NEUROLOGIC EXAM: Not responsive SKIN: No obvious lesions - Constitutional Vitals: Temp Pulse Resp BP Pulse Ox 100.1 F H 105 H 18 106/71 99 12/28/20 04:48 12/28/20 10:04 12/28/20 04:48 12/28/20 10:04 12/28/20 10:00 General appearance: Present: other (Patient does move when attempts to clean her tracheostomy and change her diaper otherwise no intelligible words.) HEART Score - HEART Score Age: < 45 Risk factors: 1-2 risk factors - Critical Actions Critical Actions: >7 pts:50-65% risk of adverse cardiac event. Early invasive measures Results - Labs CBC & Chem 7: 12/18/20 04:57 12/22/20 11:03 Labs: Laboratory Last Values WBC 8.6 K/mm3 (4.5-11.0) 12/18/20 04:57 RBC 5.16 M/mm3 (3.65-5.03) H 12/18/20 04:57 Hgb 13.0 gm/dl (10.1-14.3) 12/18/20 04:57 Hgb Comment See scanned result 10/04/20 Unknown Hct 41.6 % (30.3-42.9) 12/18/20 04:57 MCV 81 fl (79-97) 12/18/20 04:57 MCH 25 pg (28-32) L 12/18/20 04:57 MCHC 31 % (30-34) 12/18/20 04:57 RDW 14.5 % (13.2-15.2) 12/18/20 04:57 Plt Count 258 K/mm3 (140-440) 12/18/20 04:57 Lymph % (Auto) 24.1 % (13.4-35.0) 12/14/20 10:32 Rhea % (Auto) 7.8 % (0.0-7.3) H 12/14/20 10:32 Eos % (Auto) 1.5 % (0.0-4.3) 12/14/20 10:32 Baso % (Auto) 0.3 % (0.0-1.8) 12/14/20 10:32 Lymph # (Auto) 2.5 K/mm3 (1.2-5.4) 12/14/20 10:32 Rhea # (Auto) 0.8 K/mm3 (0.0-0.8) 12/14/20 10:32 Eos # (Auto) 0.2 K/mm3 (0.0-0.4) 12/14/20 10:32 Baso # (Auto) 0.0 K/mm3 (0.0-0.1) 12/14/20 10:32 Add Manual Diff Complete 12/10/20 09:37 Total Counted 100 12/10/20 09:37 Seg Neutrophils % 66.3 % (40.0-70.0) 12/14/20 10:32 Seg Neuts % (Manual) 81.0 % (40.0-70.0) H 12/10/20 09:37 Band Neutrophils % 2.0 % 10/15/20 05:50 Lymphocytes % (Manual) 17.0 % (13.4-35.0) 12/10/20 09:37 Reactive Lymphs % (Man) 1.0 % 10/02/20 12:18 Monocytes % (Manual) 2.0 % (0.0-7.3) 12/10/20 09:37 Eosinophils % (Manual) 1.0 % (0.0-4.3) 10/29/20 07:56 Myelocytes % 2.0 % 10/02/20 13:05 Metamyelocytes % 1.0 % 10/14/20 04:00 Nucleated RBC % Not Reportable 12/10/20 09:37 Seg Neutrophils # 6.8 K/mm3 (1.8-7.7) 12/14/20 10:32 Seg Neutrophils # Man 10.1 K/mm3 (1.8-7.7) H 12/10/20 09:37 Band Neutrophils # 0.0 K/mm3 12/10/20 09:37 Lymphocytes # (Manual) 2.1 K/mm3 (1.2-5.4) 12/10/20 09:37 Abs React Lymphs (Man) 0.0 K/mm3 12/10/20 09:37 Monocytes # (Manual) 0.3 K/mm3 (0.0-0.8) 12/10/20 09:37 Eosinophils # (Manual) 0.0 K/mm3 (0.0-0.4) 12/10/20 09:37 Basophils # (Manual) 0.0 K/mm3 (0.0-0.1) 12/10/20 09:37 Metamyelocytes # 0.0 K/mm3 12/10/20 09:37 Myelocytes # 0.0 K/mm3 12/10/20 09:37 Promyelocytes # 0.0 K/mm3 12/10/20 09:37 Blast Cells # 0.0 K/mm3 12/10/20 09:37 WBC Morphology Not Reportable 12/10/20 09:37 Hypersegmented Neuts Not Reportable 12/10/20 09:37 Hyposegmented Neuts Not Reportable 12/10/20 09:37 Hypogranular Neuts Not Reportable 12/10/20 09:37 Smudge Cells Not Reportable 12/10/20 09:37 Toxic Granulation Not Reportable 12/10/20 09:37 Toxic Vacuolation Not Reportable 12/10/20 09:37 Dohle Bodies Not Reportable 12/10/20 09:37 Pelger-Huet Anomaly Not Reportable 12/10/20 09:37 Ester Rods Not Reportable 12/10/20 09:37 Platelet Estimate Consistent w auto 12/10/20 09:37 Clumped Platelets Not Reportable 12/10/20 09:37 Plt Clumps, EDTA Not Reportable 12/10/20 09:37 Large Platelets Not Reportable 12/10/20 09:37 Giant Platelets Not Reportable 12/10/20 09:37 Platelet Satelliting Not Reportable 12/10/20 09:37 Plt Morphology Comment Not Reportable 12/10/20 09:37 RBC Morphology Normal 12/10/20 09:37 Dimorphic RBCs Not Reportable 12/10/20 09:37 Polychromasia Not Reportable 12/10/20 09:37 Hypochromasia 1+ 12/10/20 09:37 Poikilocytosis Not Reportable 12/10/20 09:37 Anisocytosis Not Reportable 12/10/20 09:37 Microcytosis Not Reportable 12/10/20 09:37 Macrocytosis Not Reportable 12/10/20 09:37 Spherocytes Not Reportable 12/10/20 09:37 Pappenheimer Bodies Not Reportable 12/10/20 09:37 Sickle Cells Not Reportable 12/10/20 09:37 Target Cells Not Reportable 12/10/20 09:37 Tear Drop Cells Not Reportable 12/10/20 09:37 Ovalocytes Not Reportable 12/10/20 09:37 Stomatocytes Few 10/14/20 04:00 Helmet Cells Not Reportable 12/10/20 09:37 Burk-Heeia Bodies Not Reportable 12/10/20 09:37 Chardon Rings Not Reportable 12/10/20 09:37 Antoine Cells Not Reportable 12/10/20 09:37 Bite Cells Not Reportable 12/10/20 09:37 Crenated Cell Not Reportable 12/10/20 09:37 Elliptocytes Not Reportable 12/10/20 09:37 Acanthocytes (Spur) Not Reportable 12/10/20 09:37 Rouleaux Not Reportable 12/10/20 09:37 Hemoglobin C Crystals Not Reportable 12/10/20 09:37 Schistocytes Not Reportable 12/10/20 09:37 Malaria parasites Not Reportable 12/10/20 09:37 Sickle Cell Solubility See scanned result 10/04/20 Unknown Hemoglobin A See scanned result 10/04/20 Unknown Hemoglobin A2 See scanned result 10/04/20 Unknown Hemoglobin A2 Prime See scanned result 10/04/20 Unknown Hemoglobin C See scanned result 10/04/20 Unknown Hemoglobin D See scanned result 10/04/20 Unknown Hemoglobin E See scanned result 10/04/20 Unknown Hgb F Diffential Stain See scanned result 10/04/20 Unknown Hemoglobin F Quant See scanned result 10/04/20 Unknown Hemoglobin G See scanned result 10/04/20 Unknown Hemoglobin S See scanned result 10/04/20 Unknown Hemoglobin [facility] See scanned result 10/04/20 Unknown Hemoglobin [place] See scanned result 10/04/20 Unknown Hemoglobin Analilia See scanned result 10/04/20 Unknown Variant Hemoglobin See scanned result 10/04/20 Unknown Abnorm Hgb IEF Confirm See scanned result 10/04/20 Unknown Hemoglobin Interpret See scanned result 10/04/20 Unknown Hemoglobinopathy Note See scanned result 10/04/20 Unknown Sharad Bodies Not Reportable 12/10/20 09:37 Hem Pathologist Commnt No 12/10/20 09:37 PT 13.6 Sec. (12.2-14.9) 10/21/20 13:54 INR 1.06 (0.87-1.13) 10/21/20 13:54 APTT 31.6 Sec. (24.2-36.6) 10/03/20 00:40 Fibrinogen 336 mg/dl (211-480) 10/04/20 10:00 D-Dimer 1974.47 ng/mlDDU (0-234) H 11/11/20 13:50 ABG pH 7.459 pH Units (7.350-7.450) H 10/26/20 10:30 POC ABG pCO2 20.7 mmHg (32.0-48.0) L 10/13/20 07:18 ABG pCO2 32.4 mm Hg 10/26/20 10:30 POC ABG pO2 137.9 mmHg (83-108) H 10/13/20 07:18 ABG pO2 112.2 mm Hg (80.0-90.0) H 10/26/20 10:30 POC ABG HCO3 14.8 10/13/20 07:18 ABG HCO3 22.5 mmol/L (20.0-26.0) 10/26/20 10:30 ABG O2 Saturation 98.2 % (95.0-99.0) 10/26/20 10:30 ABG O2 Content 18.5 (0.0-44) 10/26/20 10:30 POC ABG Base Excess -6.9 10/13/20 07:18 ABG Base Excess -0.6 mmol/L (-2.0-3.0) 10/26/20 10:30 ABG Hemoglobin 13.5 gm/dl (12.0-16.0) 10/26/20 10:30 ABG Oxyhemoglobin 98.3 (94-98) H 10/13/20 07:18 ABG Carboxyhemoglobin 1.3 % (0.0-5.0) 10/26/20 10:30 ABG Methemoglobin 0.5 % (0.0-1.5) 10/26/20 10:30 ABG Sodium 135.9 mmol/L (136.0-145.0) L 10/13/20 07:18 ABG Potassium 3.7 mmol/L (3.40-4.50) 10/13/20 07:18 ABG Chloride 111.0 mmol/L (98-107) H 10/13/20 07:18 ABG Glucose 109 mg/dL (65-95) H 10/13/20 07:18 VBG pH 6.949 (7.320-7.420) L* 10/02/20 Unknown Oxyhemoglobin 96.5 % (95.0-99.0) 10/26/20 10:30 Carboxyhemoglobin 0.3 (0.5-1.5) L 10/13/20 07:18 FiO2 25 % 10/26/20 10:30 Sodium 138 mmol/L (137-145) D 12/22/20 11:03 Potassium 3.9 mmol/L (3.6-5.0) 12/22/20 11:03 Chloride 101.0 mmol/L (98-107) 12/22/20 11:03 Carbon Dioxide 25 mmol/L (22-30) 12/22/20 11:03 Anion Gap 16 mmol/L 12/22/20 11:03 BUN 10 mg/dL (7-17) 12/22/20 11:03 Creatinine 0.5 mg/dL (0.6-1.2) L 12/22/20 11:03 Estimated GFR > 60 ml/min 12/22/20 11:03 BUN/Creatinine Ratio 20 % 12/22/20 11:03 Glucose 110 mg/dL (65-100) H 12/22/20 11:03 POC Glucose 95 mg/dL (70-105) 12/28/20 12:31 Random Insulin 43.2 uIU/mL (<=19.6) H 11/02/20 19:19 Proinsulin See scanned result 11/02/20 19:19 C-Peptide 6.23 ng/mL (0.80-3.85) H 11/02/20 19:19 Lactic Acid 1.90 mmol/L (0.7-2.0) 10/04/20 22:00 Uric Acid 7.5 mg/dL (3.5-7.6) 10/02/20 13:05 Calcium 9.5 mg/dL (8.4-10.2) 12/22/20 11:03 Ionized Calcium 4.4 mg/dL (4.8-5.6) L 10/07/20 21:00 Phosphorus 4.60 mg/dL (2.5-4.5) H 11/13/20 10:05 Magnesium 2.10 mg/dL (1.7-2.3) 11/13/20 10:05 Total Bilirubin 0.40 mg/dL (0.1-1.2) 12/22/20 11:03 AST 45 units/L (5-40) H 12/22/20 11:03 ALT 33 units/L (7-56) 12/22/20 11:03 Alkaline Phosphatase 100 units/L (35-129) 12/22/20 11:03 Lactate Dehydrogenase 769 units/L (91-180) H 10/02/20 13:05 C-Reactive Protein 0.70 mg/dL (0.00-1.30) 11/11/20 13:50 NT-Pro-B Natriuret Pep 2788 pg/mL (0-450) H 10/04/20 10:00 Total Protein 7.5 g/dL (6.3-8.2) 12/22/20 11:03 Albumin 3.8 g/dL (3.9-5) L 12/22/20 11:03 Albumin/Globulin Ratio 1.0 % 12/22/20 11:03 Procalcitonin < 0.05 ng/mL (<0.15) 12/27/20 20:16 Arterial Blood Glucose 109 mg/dL (65-95) H 10/13/20 07:18 Arterial Blood Ionized Calcium 4.6 mg/dL (4.6-5.3) 10/13/20 07:18 Urine Color Kelsey (Yellow) 12/27/20 22:25 Urine Turbidity Cloudy (Clear) 12/27/20 22:25 Urine pH 7.0 (5.0-7.0) 12/27/20 22:25 Ur Specific [place] 1.018 (1.003-1.030) 12/27/20 22:25 Urine Protein 30 mg/dl mg/dL (Negative) 12/27/20 22:25 Urine Glucose (UA) Neg mg/dL (Negative) 12/27/20 22:25 Urine Ketones Neg mg/dL (Negative) 12/27/20 22:25 Urine Blood Sm (Negative) 12/27/20 22:25 Urine Nitrite Pos (Negative) 12/27/20 22:25 Urine Bilirubin Neg (Negative) 12/27/20 22:25 Urine Urobilinogen 2.0 mg/dL (<2.0) 12/27/20 22:25 Ur Leukocyte Esterase Lg (Negative) 12/27/20 22:25 Urine WBC (Auto) 5.0 /HPF (0.0-6.0) 12/27/20 22:25 Urine RBC (Auto) 22.0 /HPF (0.0-6.0) 12/27/20 22:25 U Epithel Cells (Auto) 16.0 /HPF (0-13.0) H 12/27/20 22:25 Urine Bacteria (Auto) 4+ /HPF (Negative) 12/27/20 22:25 Urine WBC Clumps 3+ /HPF 11/11/20 13:50 Calcium Oxalate Crystal Few 11/11/20 13:50 Urine Mucus 3+ /HPF 12/27/20 22:25 Urine Yeast (Budding) 2+ /HPF 12/10/20 09:25 Vancomycin Trough 12.6 ug/mL (5.0-20.0) 10/21/20 13:54 Random Vancomycin 10.7 ug/mL (0-40.0) 10/16/20 13:09 Phenytoin 5.7 ug/mL (10.0-20.0) L 10/13/20 07:00 C. difficile Tox (PCR) Positive (Negative) 10/16/20 10:22 Coronavirus (PCR) Negative (Negative) 10/08/20 14:15 Blood Type O POSITIVE 10/02/20 12:50 Antibody Screen Negative 10/02/20 12:50 Crossmatch See Detail 10/02/20 12:50 Microbiology: Microbiology 12/27/20 17:55 Tracheal Aspirate Sputum Culture - Preliminary Gram Negative Andrea 12/27/20 20:16 Peripheral/Venous Blood Culture - Preliminary Culture in Progress 12/27/20 20:16 Peripheral/Venous Blood Culture - Preliminary Culture in Progress - Diagnostic Impressions Diagnostic Impressions: Echocardiogram 10/03/20 13:42 Transthoracic Echocardiogram Indication: S/P Cardiac Arrest R/O Cardiomyopathy BP: 133/71 Conclusions *Global left ventricular systolic function is normal. *The estimated ejection fraction is 60-65%. *There is trace of mitral regurgitation. *The right 0heart chambers are both slightly dilated. *There is mild tricuspid regurgitation. *There is mild-moderate pulmonary hypertension. *The right ventricular systolic pressure is calculated at 44 mmHg. *The study quality is technically difficult. Findings Procedure Info: The study quality is technically difficult. The study is technically limited due to patient body habitus. The study was technically limited due to the patient's inability to lay in the left lateral decubitus position. Left Ventricle: The left ventricular chamber size is normal. There is no left ventricular hypertrophy. Global left ventricular systolic function is normal. The estimated ejection fraction is 60-65%. Left Atrium: The left atrial chamber size is normal. Right Ventricle: The right ventricle is slightly dilated. Right Atrium: The right atrium is mildly dilated. Aortic Valve: The aortic valve leaflets are mildly thickened. There is no evidence of aortic regurgitation. There is no evidence of aortic stenosis. Mitral Valve: The mitral valve leaflets are mildly thickened. There is trace of mitral regurgitation. There is no evidence of mitral stenosis. Tricuspid Valve: There is mild tricuspid regurgitation. The right ventricular systolic pressure is calculated at 44 mmHg. There is evidence of mild pulmonary hypertension. Pulmonic Valve: There is trace pulmonic regurgitation. Pericardium: There is no pericardial effusion. Aorta: There is no dilatation of the ascending aorta. There is no dilatation of the aortic root. Venous: The inferior vena cava is dilated. Measurements Chambers 2D Name Value Normal Range IVSd (2D) 1 cm (0.6 - 1.1) LVPWd (2D) 1.01 cm (0.6 - 1.1) LVIDd (2D) 4.58 cm (3.7 - 5.6) LVIDs (2D) 3.17 cm (2 - 3.8) LV FS (2D) 30.93 % - EF Teichholz (2D) 58.66 % - Ao root diameter (2D) 2.94 cm (2 - 3.7) Volumes/Mass Name Value Normal Range LA ESV SP 4CH (A/L) 72.82 ml - LA ESV SP 2CH (A/L) 66.86 ml - LA ESV BP (A/L) 74.49 ml - LA ESV SP 4CH (MOD) 71.03 ml - LA ESV SP 2CH (MOD) 64.3 ml - LV EDV SP 4CH (MOD) 98.82 ml - LV ESV SP 4CH (MOD) 24.8 ml - EF SP 4CH (MOD) 74.9 % - LV EDV SP 2CH (MOD) 86.1 ml - LV ESV SP 2CH (MOD) 36.93 ml - EF SP 2CH (MOD) 57.11 % - LV EDV BP 94.4 ml - LV ESV BP 32.66 ml - BP EF (MOD) 65.4 % - Diastolic/Systolic Function Name Value Normal Range MV E-wave Vmax 1.04 m/sec - MV deceleration time 160.46 msec - MV A-wave Vmax 0.92 m/sec - MV E:A ratio 1.14 ratio - Aortic Valve Name Value Normal Range AV Vmax 2.12 m/sec - AV VTI 22.37 cm - AV peak gradient 17.95 mmHg - AV mean gradient 7.29 mmHg - LVOT diameter 2.01 cm - LVOT Vmax 1.8 m/sec - LVOT VTI 27.17 cm - LVOT peak gradient 12.91 mmHg - LVOT mean gradient 6.83 mmHg - SV LVOT 86.42 ml - ANITA (continuity Vmax) 2.7 cm2 - ANITA (continuity VTI) 3.86 cm2 - Ascending Ao 3.18 cm - Tricuspid Valve Name Value Normal Range TV E-wave Vmax 0.88 m/sec - TR Vmax 3.01 m/sec - TR peak gradient 36.27 mmHg - RAP 8 mmHg - RVSP 44 mmHg - IVC diameter 2.65 cm (1.2 - 2.3) Pulmonic Valve/Qp:Qs Name Value Normal Range PV Vmax 1.22 m/sec - PV peak gradient 5.91 mmHg - RVOT Vmax 0.87 m/sec - RVOT VTI 13.32 cm - RVOT peak gradient 3 mmHg - PV acceleration time 110.37 msec - [place]/IV: Voiding Method External Female Catheter IV Catheter Type [Right Foot] INT / Saline Lock IV Catheter Type [Left Forearm Peripheral IV ] IV Catheter Type [Left Wrist] INT / Saline Lock IV Catheter Type [Right Hand] INT / Saline Lock IV Catheter Type [Right INT / Saline Lock Antecubital] IV Catheter Type [Right Upper Mid-line arm] IV Catheter Type [Left Triple Lumen Cath Internal Jugular] IV Catheter Type [Left Hand] Peripheral IV IV Catheter Type [Left Peripheral IV Antecubital] Active Medications - Current Medications Current Medications: Generic Name Dose Route Start Last Admin Trade Name Freq PRN Reason Stop Dose Admin Acetaminophen 650 mg 10/05/20 16:34 12/27/20 23:57 Acetaminophen 325 Mg/10.15 Ml Oral Liqd Unit Dose FEEDTUBE 650 mg Q6H PRN Administration Non Cardiac Pain or Temp>100.5 Albuterol 2.5 mg 11/05/20 13:03 11/06/20 13:04 Albuterol 2.5 Mg/3 Ml Nebu IH 2.5 mg Q4HRT PRN Administration Shortness Of Breath Lipase/Protease/Amylase 1 each 10/05/20 11:09 Lipase 10,500/Protease 25,000/Amylase 43,750 (Units) Dr Barakat FEEDTUBE PRN PRN For Clogged Feeding Tube Enoxaparin Sodium 40 mg 10/22/20 10:00 12/28/20 10:04 Enoxaparin 40 Mg/0.4 Ml Inj SUB-Q 40 mg DAILY ERINN Administration Protocol Famotidine 20 mg 10/07/20 10:00 12/28/20 10:04 Famotidine 20 Mg Tab PO 20 mg BID ERINN Administration Furosemide 20 mg 12/24/20 10:00 12/28/20 10:04 Furosemide 20 Mg Tab PO 20 mg QAM EIRNN Administration Hydralazine HCl 20 mg 10/07/20 11:49 10/17/20 07:20 Hydralazine 20 Mg/1 Ml Inj IV 20 mg Q6H PRN Administration SBP >170 Ceftriaxone Sodium 1 gm in 50 mls @ 100 mls/hr 12/28/20 08:00 12/28/20 08:08 Rocephin/Ns 1 Gm/50 Ml IV 100 mls/hr Q24H ERINN Administration Protocol Metoprolol Tartrate 12.5 mg 12/23/20 13:00 12/28/20 10:04 Metoprolol Tartrate 25 Mg Tab PO 12.5 mg BID ERINN Administration Polyethylene Glycol 17 gm 12/27/20 15:07 12/28/20 10:05 Polyethylene Glycol 3350 17 Gm Powder PO 17 gm QDAY PRN Administration Constipation Simple Syrup 15 ml 10/05/20 11:09 Simple Syrup 15 Ml FEEDTUBE PRN PRN Hypoglycemia Simple Syrup 30 ml 10/05/20 11:09 Simple Syrup 15 Ml FEEDTUBE PRN PRN Hypoglycemia Sodium Bicarbonate 325 mg 10/05/20 11:09 12/16/20 08:19 Sodium Bicarbonate 325 Mg Tab FEEDTUBE 325 mg PRN PRN Administration For Clogged Feeding Tube Nutrition/Malnutrition Assess - Dietary Evaluation Nutrition/Malnutrition Findings: Nutrition Notes Start: 10/04/20 11:13 Freq: Status: Active Protocol: Document 12/25/20 09:49 MK (Rec: 12/25/20 09:53 MK [id number]) Nutrition Notes Initial or Follow up Reassessment Current Diagnosis Respiratory Failure Other Pertinent Diagnosis C-Diff, Cardiac arrest, s/p c- section and supracervical hysterectomy, Brain Current Diet Jevity 1.2 at 60 mL/hr Labs/Tests Reviewed Pertinent Medications Reviewed Height 5 ft 8 in Weight 99.5 kg [place] Body Weight (kg) 63.63 BMI 33.3 Weight Status Obese Subjective/Other Information FU for TF tolerance. Observed Jevity 1.2 running at 70 ml/hr . Per RN, pt tolerating. Pt awaiting placement. Percent of energy/protein needs met: 96%/100% Burn Absent Trauma Absent GI Symptoms None Food Allergy Yes Current % PO Negligible Minimum of two criteria Yes Interpretation of Weight Loss (severe) >2% in 1 week Fluid Accumulation Mild (non-severe) #2 Nutrition Diagnosis Malnutrition Diagnosis Progress(for reassessment Continues documentation) #1 Nutrition Diagnosis Inadequate oral intake Diagnosis Progress(for reassessment Continues documentation) Is patient on ventilator? No Is Patient Ambulatory and/or Out of Bed No REE-([facility]-confined to bed) 2106.084 Kcal/Kg value to use for calculation 18 Approximate Energy Requirements Using 1791 kcal/Kg Calculation Used for Recommendations Kcal/kg Additional Notes PRO needs: 65-81 (0.8-1 g/kg AdBW 81kg) Fluid needs: 1 mL/kcal or per MD Nutrition Intervention Change Diet Order: Continue TF Nutrition Support: Jevity 1.2 at 60ml/hr. Flush 100ml q4h. Flush 250 ml q4h for Hypernatremia. Once hypernatremia is resolved, flush 100 q4h. Kcal 1,728 Protein (gm) 80 Fluid (mL) 1,162 Goal #1 TF tolerance Goal #2 Meet at least 75% of energy and protein needs via TF Anticipated Discharge Needs: Jevity 1.2 at 60ml/hr. Flush 100ml q4h. Follow-Up By: 01/01/21 Additional Comments FU for stable TF
[2020-12-28] MEDS: CEFEPIME/NS 2 GM/100 ML 2 GM/100 ML BAG IV SCH (15:53)
[2020-12-28] MEDS: ACETAMINOPHEN 325 MG/10.15 ML ORAL LIQD UNIT DOSE FEEDTUBE PRN (17:19)
[2020-12-29] MEDS: CEFEPIME/NS 2 GM/100 ML 2 GM/100 ML BAG IV SCH ×4 (01:00→23:37)
[2020-12-29] MEDS: ENOXAPARIN 40 MG/0.4 ML INJ SUB-Q SCH (10:19)
[2020-12-29] MEDS: FAMOTIDINE 20 MG TAB PO SCH ×2 (10:20→22:48)
[2020-12-29] MEDS: METOPROLOL TARTRATE 25 MG TAB PO SCH ×2 (10:20→22:39)
[2020-12-29] MEDS: FUROSEMIDE 20 MG TAB PO SCH (10:20)
--- NOTE | 2020-12-29 13:44 | Progress Note ---
Assessment and Plan --DIC (disseminated intravascular coagulation) vs HELLP syndrome Resolved --Possible Eclampsia/HELLP Syndrome Resolved --s/p Cardiac arrest x2 on admission and on 10/07 ACLS protocol followed by revival Echo showed preserved Ef --Shock-resolved now awaiting placement s/p pressor support --ADOLPH-resolved Stable --Sepsis 2/2 UTI Switch ceftriaxone to cefepime to cover possible pseudomonas as sputum is also growing GN rods Previous urine culture grew pansensitive ecoli --DVT prophylaxis Patient presented with DIC No anticoagulants Overall prognosis extremely poor. Brief history 30 year old -Chinese female CHE 10/25/20 at 36w5d who presents with seizures in triage on 10/02/20. Pt was not able to provide history but per pt's , she presented to the hospital to return a 24 hour urine specimen for analysis. She then suddenly reported that she did not feel good. She was taken to labor and delivery and shortly after arrival, she began seizing. During this time, a code met was called because the patient became hypoxic. She was then noted to be without a pulse. Chest compressions were started immediately, and the patient was emergently taken to the operating room for delivery of the fetus. Off note, This patient has had care at [facility] with comanagement by [facility] since 11 wks complicated by ADHD, morbid obesity, generalized anxiety disorder, panic attacks, chronic narcotic use, fibromyalgia, GERD, Irritable Bowel Syndrome, Migraines, h/o endometrial ablation and ovarian vein embolization, genital herpes, insomnia, LGA fetus, nausea and vomiting, po lyhydramnios, quad screen positive for Down's Syndrome, and previous x 3. She was GBS negative. Daily clinical course 10/02/21 11:30: Pt brought to L&D triage for evaluation of possible labor. Pt accompanied by her spouse. Pt spouse poor historian; unable to obtain history- allergies at this time. Pt taken from registration to triage area via WC. Pt unresponsive, actively seizing with snorous respirations. document control specialist, Kassy, called and requesting assistance. 11:35: Multiple staff at bedside. Pt 02 sat 67% on nonrebreather, unable to read BP at this time. Yifan Theodore CRNA, at bedside for intubation and assistance with IV insertion. INT attempt by multiple RNs unsuccessful at this time. 11:42: Pt being bagged by MANAGER SHIP, 02% 79%. No pulse palpated, compressions started at this time; bharati young called and Dr. Newberry preparing OR for emergent c/s. 11:44: Continued compressions on stretcher while transporting pt to OR 1. Pt being bagged with jaw thrust manuever in place by KORIN Stringer student. 11:45: Arrival to OR 1. Dr. Newberry and Dr. Portillo present for emergent c/s. Code team arrived for continued care. patient revived and c/s done Patient has been bleeding from C/s site followed by supracervical hysterectomy for severe bleeding Patient transfused multiple units of PRBC, Patient in DIC. Transferred to the ICU 10/03. Patient seen and examined at bedside this morning. Patient is nonresponsive and mechanically ventilated. On pressors. Labs reviewed-has leukocytosis, anemia, thrombocytopenia, AODLPH and lactic acidosis. Started on IV antibiotics to cover possible sepsis secondary to DIC. Hematology oncology recommendations appreciated-needs additional cryoprecipitate and FFP. Monitor D-dimer, fibrinogen and frequent labs. Nephrology consulted for lactic acidosis and ADOLPH. 10/04. Remains mechanically ventilated. Kevin antibiotics. Labs shows improved acidosis - lactic acid 3.5. Hb drop noted. Getting transfused 2 units PRBCs. Platelet count is ~40k. Continue to monitor labs closely. Critical care team on board. 10/05; xray reviewed, concerning for multifocal infilrate, likely underlying Pneumonia, will add ID consult to assist with management of this critically ill patient, start tube feed, closely monitor renal system 10/06: Resumed care, remains on mechanical ventilation. No active bleeding, H&H stable. Continue to monitor CBC and BMP. Continue IV antibiotic for underlying pneumonia. Follow critical care and ID recommendation. 10/07: Remains on mechanical ventilation. No active bleeding, H&H stable. Cri tical care following, wean off ventilation as tolerated. 10/08: Patient had another cardiac arrest last night. Remains on mechanical ventilation, update family. Continue supportive care -poor prognosis 10/09: Called patient mother and discussed about patient care and management. Answered all question to best of my knowledge and family satisfaction. Patient remains on mechanical ventilation, cardiac arrest x2 so far. Critically sick, poor prognosis 10/10: remains on mechanical ventilation. h/h stable, no active bleeding. monitor CBC/BMP 10/11: WBC trended up with diarrhea, started on vancomycin po. remains on MV, off pressor, tolerating TF 10/12: remains on MV, off pressor, tolerating TF. called family for update but unable to reach, could not leave message as it was full. cont supportive care, wean off vent as tolerated. 10/13/2020; patient is on mechanical ventilation, tolerating tube feeding. Patient has labored breathing. Neuro was consulted and recommend MRI. Patient is on Precedex. Rectal tube in place. 10/14/2020; patient is on mechanical ventilation, Precedex. Patient had fever and blood culture ordered. Patient is on IV vancomycin per ID recommendation. Neuro consulted and recommend MRI. Continue to monitor. Prognosis is guarded. 10/15/2020; patient is on mechanical ventilation, Precedex. Patient had fever and blood culture ordered. Patient is on IV vancomycin per ID recommendation. Neuro consulted and recommend MRI. Continue to monitor. Prognosis is guarded. 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 12/06/20; anoxic brain injury. Awaiting placement. 12/07/2020; anoxic brain injury, awaiting placement. 12/09/2020; anoxic brain injury, awaiting placement. 12/10/2020; patient had episodes of fever overnight. CBC, BMP, blood culture, UA and chest x-ray ordered, will follow and manage accordingly. Urinalysis is suggestive of UTI and I put the patient on ceftriaxone, order urine culture. Chest x-ray is normal. 12/11/2020; patient is on ceftriaxone day 2 for UTI. We will continue to follow urine culture. 12/12/2020. Day #3 of Rocephin for UTI. We will continue for 2 more days while she is here. Present UTI. 12/13/2020. Day #4 of Rocephin for UTI. Patient remains on 50% with tracheostomy. Remains unresponsive with evidence of anoxic encephalopathy unable to make needs known. 12/14/2020. Day #5 of Rocephin for UTI completed today. Remains encephalopathic unable to make needs known. Remains on 50% unable to decrease oxygen via tracheostomy. Overall prognosis remains extremely poor. 12/15: Continue to monitor. Stop and monitor antibiotics at this time. Continue to wean oxygen as tolerated. Wean oxygen as tolerated. Case management working on placement. 12/16: Continue supportive care aspiration precautions. Awaiting placement discussion. Monitor fever curve. Prognosis remains poor no evidence of neuro logical recovery as of today 12/17: Continue supportive care, check labs and chest xray. Still monitor off antibiotics. Monitor Sodium level 12/18: Patient remains with intermittent low grade fever, reviewed EEG from September again, consistent for Ischemic Hypoxic Encephalopathy, patient with decorticating posturing type presentation. Will discuss with thermoforming machine operator to optimize diet so we can discontinue D5. CXR with no abnormality. Discussed extensively with the nursing staff at bedside CXR IMPRESSION: 1. No acute findings. 12/19: No clinical change 12/20: No clinical change, now off abx, monitor, discussed her medications with our pharmacist I believe that her posture and rigidity is likely from underlying anoxic encephalopathy. Continue to monitor and await placement decision. Continue aggressive suctioning. Plan discussed in detail with the nursing staff 12/21: Continue supportive care. Will give 500 cc bolus of fluid today to replace insensible losses. Tachycardia appears to be improving. Blood pressure precludes adjusting cardiac meds. Still awaiting placement from case manag lana. Plan discussed in detail with the nursing staff 12/22. Continue support supportive care. Tracheostomy and PEG in place. Remains nonresponsive. Awaiting placement. 12/23. Continue support supportive care. Tracheostomy and PEG in place. Remains nonresponsive. Awaiting placement. Remains tachycardic. Decrease dose of lasix. Will try low dose metoprolol. Monitor BP closely 12/24. Continue support supportive care. Tracheostomy and PEG in place. Remains nonresponsive. Awaiting placement. Heart rate slightly better. Continue to monitor BP closely 12/25. Continue support supportive care. Tracheostomy and PEG in place. Remains nonresponsive. Awaiting placement. 12/26. Continue support supportive care. Tracheostomy and PEG in place. Remains nonresponsive. Awaiting placement 12/27. Continue support supportive care. Tracheostomy and PEG in place. Remains nonresponsive. Awaiting placement 12/28. Had fever yesterday. Blood culture drawn. UA - UTI - started on antibiotic s. Now tracheal aspirate is growing GN rods. 12/29: Continue IV antibiotics, continue supportive care. Since admission patient has shown minimal or no chance of neurological recovery. Need 24/7 assi stance. Currently on trach and PEG, nonverbal. Waiting on SNF placement. Discussed with medical case manager today. Subjective Date of service: 12/29/20 Principal diagnosis: Eclampsia/HELLP Syndrome, ADOLPH, DIC; s/p , s/p supracervical hyst Interval history: Patient seen and examined. Medical records and medication list reviewed. No acute event overnight noted by the RN. H&H stable Discussed with RN at the bedside Objective - Exam Narrative Exam: vITAL SIGNS: Reviewed. GENERAL: Trach in place HEAD: No signs of head trauma. EYES: Pupils are equal. NECK: No adenopathy, no JVD. CHEST: Diminished breath sounds CARDIAC: normal S1 and S2, without murmurs, gallops, or rubs. ABDOMEN: Soft, non tender and non distended. No rebound or guarding, and no masses palpated. Bowel Sounds normal MUSCULOSKELETAL: No edema NEUROLOGIC EXAM: nonverbal SKIN: No obvious lesions - Constitutional Vitals: Vital Signs - 12hr 12/29/20 12/29/20 12/29/20 05:53 08:00 10:20 Temperature 98.0 F Pulse Rate 114 H 114 H Respiratory 16 Rate Blood Pressure 100/65 100/65 O2 Sat by Pulse 98 Oximetry O2 Sat by Pulse 100 Oximetry [ Assessment] 12/29/20 11:01 Temperature Pulse Rate Respiratory Rate Blood Pressure O2 Sat by Pulse 98 Oximetry O2 Sat by Pulse Oximetry [ Assessment] - Labs CBC & Chem 7: 12/18/20 04:57 12/22/20 11:03 HEART Score - HEART Score Age: < 45 Risk factors: 1-2 risk factors - Critical Actions Critical Actions: >7 pts:50-65% risk of adverse cardiac event. Early invasive measures
[2020-12-30] MEDS: CEFEPIME/NS 2 GM/100 ML 2 GM/100 ML BAG IV SCH ×3 (08:46→23:38)
[2020-12-30] MEDS: FAMOTIDINE 20 MG TAB PO SCH ×2 (09:19→23:37)
[2020-12-30] MEDS: ENOXAPARIN 40 MG/0.4 ML INJ SUB-Q SCH (09:19)
[2020-12-30] MEDS: METOPROLOL TARTRATE 25 MG TAB PO SCH ×2 (09:19→23:37)
[2020-12-30] MEDS: FUROSEMIDE 20 MG TAB PO SCH (09:19)
[2020-12-30] MEDS: ACETAMINOPHEN 325 MG/10.15 ML ORAL LIQD UNIT DOSE FEEDTUBE PRN (14:13)
--- NOTE | 2020-12-30 16:06 | Progress Note ---
Assessment and Plan --DIC (disseminated intravascular coagulation) vs HELLP syndrome Resolved --Possible Eclampsia/HELLP Syndrome Resolved --s/p Cardiac arrest x2 on admission and on 10/07 ACLS protocol followed by revival Echo showed preserved Ef --Shock-resolved now awaiting placement s/p pressor support --ADOLPH-resolved Stable --Sepsis 2/2 UTI Switch ceftriaxone to cefepime to cover possible pseudomonas as sputum is also growing GN rods Previous urine culture grew pansensitive ecoli --DVT prophylaxis Patient presented with DIC No anticoagulants Overall prognosis extremely poor. Brief history 30 year old -[place] female CHE 10/25/20 at 36w5d who presents with seizures in triage on 10/02/20. Pt was not able to provide history but per pt's , she presented to the hospital to return a 24 hour urine specimen for analysis. She then suddenly reported that she did not feel good. She was taken to labor and delivery and shortly after arrival, she began seizing. During this time, a code met was called because the patient became hypoxic. She was then noted to be without a pulse. Chest compressions were started immediately, and the patient was emergently taken to the operating room for delivery of the fetus. Off note, This patient has had care at [facility] with comanagement by [facility] since 11 wks complicated by ADHD, morbid obesity, generalized anxiety disorder, panic attacks, chronic narcotic use, fibromyalgia, GERD, Irritable Bowel Syndrome, Migraines, h/o endometrial ablation and ovarian vein embolization, genital herpes, insomnia, LGA fetus, nausea and vomiting, po lyhydramnios, quad screen positive for Down's Syndrome, and previous x 3. She was GBS negative. Daily clinical course 10/02/21 11:30: Pt brought to L&D triage for evaluation of possible labor. Pt accompanied by her spouse. Pt spouse poor historian; unable to obtain history- allergies at this time. Pt taken from registration to triage area via WC. Pt unresponsive, actively seizing with snorous respirations. quiller runner, Kassy, called and requesting assistance. 11:35: Multiple staff at bedside. Pt 02 sat 67% on nonrebreather, unable to read BP at this time. Yifan Theodore CRNA, at bedside for intubation and assistance with IV insertion. INT attempt by multiple RNs unsuccessful at this time. 11:42: Pt being bagged by ORGAN PIPE MAKER METAL, 02% 79%. No pulse palpated, compressions started at this time; bharati young called and Dr. Newberry preparing OR for emergent c/s. 11:44: Continued compressions on stretcher while transporting pt to OR 1. Pt being bagged with jaw thrust manuever in place by KORIN Stringer student. 11:45: Arrival to OR 1. Dr. Newberry and Dr. Portillo present for emergent c/s. Code team arrived for continued care. patient revived and c/s done Patient has been bleeding from C/s site followed by supracervical hysterectomy for severe bleeding Patient transfused multiple units of PRBC, Patient in DIC. Transferred to the ICU 10/03. Patient seen and examined at bedside this morning. Patient is nonresponsive and mechanically ventilated. On pressors. Labs reviewed-has leukocytosis, anemia, thrombocytopenia, ADOLPH and lactic acidosis. Started on IV antibiotics to cover possible sepsis secondary to DIC. Hematology oncology recommendations appreciated-needs additional cryoprecipitate and FFP. Monitor D-dimer, fibrinogen and frequent labs. Nephrology consulted for lactic acidosis and ADOLPH. 10/04. Remains mechanically ventilated. Kevin antibiotics. Labs shows improved acidosis - lactic acid 3.5. Hb drop noted. Getting transfused 2 units PRBCs. Platelet count is ~40k. Continue to monitor labs closely. Critical care team on board. 10/05; xray reviewed, concerning for multifocal infilrate, likely underlying Pneumonia, will add ID consult to assist with management of this critically ill patient, start tube feed, closely monitor renal system 10/06: Resumed care, remains on mechanical ventilation. No active bleeding, H&H stable. Continue to monitor CBC and BMP. Continue IV antibiotic for underlying pneumonia. Follow critical care and ID recommendation. 10/07: Remains on mechanical ventilation. No active bleeding, H&H stable. Cri tical care following, wean off ventilation as tolerated. 10/08: Patient had another cardiac arrest last night. Remains on mechanical ventilation, update family. Continue supportive care -poor prognosis 10/09: Called patient mother and discussed about patient care and management. Answered all question to best of my knowledge and family satisfaction. Patient remains on mechanical ventilation, cardiac arrest x2 so far. Critically sick, poor prognosis 10/10: remains on mechanical ventilation. h/h stable, no active bleeding. monitor CBC/BMP 10/11: WBC trended up with diarrhea, started on vancomycin po. remains on MV, off pressor, tolerating TF 10/12: remains on MV, off pressor, tolerating TF. called family for update but unable to reach, could not leave message as it was full. cont supportive care, wean off vent as tolerated. 10/13/2020; patient is on mechanical ventilation, tolerating tube feeding. Patient has labored breathing. Neuro was consulted and recommend MRI. Patient is on Precedex. Rectal tube in place. 10/14/2020; patient is on mechanical ventilation, Precedex. Patient had fever and blood culture ordered. Patient is on IV vancomycin per ID recommendation. Neuro consulted and recommend MRI. Continue to monitor. Prognosis is guarded. 10/15/2020; patient is on mechanical ventilation, Precedex. Patient had fever and blood culture ordered. Patient is on IV vancomycin per ID recommendation. Neuro consulted and recommend MRI. Continue to monitor. Prognosis is guarded. 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 12/06/20; anoxic brain injury. Awaiting placement. 12/07/2020; anoxic brain injury, awaiting placement. 12/09/2020; anoxic brain injury, awaiting placement. 12/10/2020; patient had episodes of fever overnight. CBC, BMP, blood culture, UA and chest x-ray ordered, will follow and manage accordingly. Urinalysis is suggestive of UTI and I put the patient on ceftriaxone, order urine culture. Chest x-ray is normal. 12/11/2020; patient is on ceftriaxone day 2 for UTI. We will continue to follow urine culture. 12/12/2020. Day #3 of Rocephin for UTI. We will continue for 2 more days while she is here. Present UTI. 12/13/2020. Day #4 of Rocephin for UTI. Patient remains on 50% with tracheostomy. Remains unresponsive with evidence of anoxic encephalopathy unable to make needs known. 12/14/2020. Day #5 of Rocephin for UTI completed today. Remains encephalopathic unable to make needs known. Remains on 50% unable to decrease oxygen via tracheostomy. Overall prognosis remains extremely poor. 12/15: Continue to monitor. Stop and monitor antibiotics at this time. Continue to wean oxygen as tolerated. Wean oxygen as tolerated. Case management working on placement. 12/16: Continue supportive care aspiration precautions. Awaiting placement discussion. Monitor fever curve. Prognosis remains poor no evidence of neuro logical recovery as of today 12/17: Continue supportive care, check labs and chest xray. Still monitor off antibiotics. Monitor Sodium level 12/18: Patient remains with intermittent low grade fever, reviewed EEG from September again, consistent for Ischemic Hypoxic Encephalopathy, patient with decorticating posturing type presentation. Will discuss with director industrial museum to optimize diet so we can discontinue D5. CXR with no abnormality. Discussed extensively with the nursing staff at bedside CXR IMPRESSION: 1. No acute findings. 12/19: No clinical change 12/20: No clinical change, now off abx, monitor, discussed her medications with our pharmacist I believe that her posture and rigidity is likely from underlying anoxic encephalopathy. Continue to monitor and await placement decision. Continue aggressive suctioning. Plan discussed in detail with the nursing staff 12/21: Continue supportive care. Will give 500 cc bolus of fluid today to replace insensible losses. Tachycardia appears to be improving. Blood pressure precludes adjusting cardiac meds. Still awaiting placement from case manag lana. Plan discussed in detail with the nursing staff 12/22. Continue support supportive care. Tracheostomy and PEG in place. Remains nonresponsive. Awaiting placement. 12/23. Continue support supportive care. Tracheostomy and PEG in place. Remains nonresponsive. Awaiting placement. Remains tachycardic. Decrease dose of lasix. Will try low dose metoprolol. Monitor BP closely 12/24. Continue support supportive care. Tracheostomy and PEG in place. Remains nonresponsive. Awaiting placement. Heart rate slightly better. Continue to monitor BP closely 12/25. Continue support supportive care. Tracheostomy and PEG in place. Remains nonresponsive. Awaiting placement. 12/26. Continue support supportive care. Tracheostomy and PEG in place. Remains nonresponsive. Awaiting placement 12/27. Continue support supportive care. Tracheostomy and PEG in place. Remains nonresponsive. Awaiting placement 12/28. Had fever yesterday. Blood culture drawn. UA - UTI - started on antibiotic s. Now tracheal aspirate is growing GN rods. 12/29: Continue IV antibiotics, continue supportive care. Since admission patient has shown minimal or no chance of neurological recovery. Need 24/7 assi stance. Currently on trach and PEG, nonverbal. Waiting on SNF placement. Discussed with case repairer today. 12/30: Continue IV antibiotics for UTI, continue supportive care. Pending placement Subjective Date of service: 12/30/20 Principal diagnosis: Eclampsia/HELLP Syndrome, ADOLPH, DIC; s/p , s/p supracervical hyst Interval history: Patient seen and examined. Medical records and medication list reviewed. No acute event overnight noted by the RN. H&H stable, afebrile Discussed with RN at the bedside Objective - Exam Narrative Exam: vITAL SIGNS: Reviewed. GENERAL: Trach in place HEAD: No signs of head trauma. EYES: Pupils are equal. NECK: No adenopathy, no JVD. CHEST: Diminished breath sounds CARDIAC: normal S1 and S2, without murmurs, gallops, or rubs. ABDOMEN: Soft, non tender and non distended. No rebound or guarding, and no masses palpated. Bowel Sounds normal MUSCULOSKELETAL: No edema NEUROLOGIC EXAM: nonverbal SKIN: No obvious lesions - Constitutional Vitals: Vital Signs - 12hr 12/30/20 12/30/20 12/30/20 05:27 09:08 09:09 Temperature 99.2 F Pulse Rate 111 H Respiratory 20 Rate Blood Pressure 133/70 O2 Sat by Pulse 100 98 Oximetry O2 Sat by Pulse 98 Oximetry [ Assessment] 12/30/20 12/30/20 12/30/20 09:19 10:44 14:02 Temperature Pulse Rate 111 H 110 H Respiratory Rate Blood Pressure 133/70 105/76 103/72 O2 Sat by Pulse 99 Oximetry O2 Sat by Pulse Oximetry [ Assessment] - Labs CBC & Chem 7: 12/18/20 04:57 12/22/20 11:03 Labs: Abnormal lab results 12/30/20 Range/Units 06:48 POC Glucose 106 H (70-105) mg/dL HEART Score - HEART Score Age: < 45 Risk factors: 1-2 risk factors - Critical Actions Critical Actions: >7 pts:50-65% risk of adverse cardiac event. Early invasive measures
[2020-12-31] MEDS: CEFEPIME/NS 2 GM/100 ML 2 GM/100 ML BAG IV SCH (09:41)
[2020-12-31] MEDS: FUROSEMIDE 20 MG TAB PO SCH (09:42)
[2020-12-31] MEDS: ENOXAPARIN 40 MG/0.4 ML INJ SUB-Q SCH (09:42)
[2020-12-31] MEDS: FAMOTIDINE 20 MG TAB PO SCH ×2 (09:43→22:27)
[2020-12-31] MEDS: METOPROLOL TARTRATE 25 MG TAB PO SCH ×2 (10:10→22:26)
--- NOTE | 2020-12-31 15:52 | Progress Note ---
Assessment and Plan --DIC (disseminated intravascular coagulation) vs HELLP syndrome Resolved --Possible Eclampsia/HELLP Syndrome Resolved --s/p Cardiac arrest x2 on admission and on 10/07 ACLS protocol followed by revival Echo showed preserved Ef --Shock-resolved now awaiting placement s/p pressor support --ADOLPH-resolved Stable --Sepsis 2/2 UTI Switch ceftriaxone to cefepime to cover possible pseudomonas as sputum is also growing GN rods till 01/04/21 Previous urine culture grew pansensitive ecoli --DVT prophylaxis Patient presented with DIC No anticoagulants Overall prognosis extremely poor. Brief history 30 year old -[place] female CHE 10/25/20 at 36w5d who presents with seizures in triage on 10/02/20. Pt was not able to provide history but per pt's , she presented to the hospital to return a 24 hour urine specimen for analysis. She then suddenly reported that she did not feel good. She was taken to labor and delivery and shortly after arrival, she began seizing. During this time, a code met was called because the patient became hypoxic. She was then noted to be without a pulse. Chest compressions were started immediately, and the patient was emergently taken to the operating room for delivery of the fetus. Off note, This patient has had care at [facility] with comanagement by [facility] since 11 wks complicated by ADHD, morbid obesity, generalized anxiety disorder, panic attacks, chronic narcotic use, fibromyalgia, GERD, Irritable Bowel Syndrome, Migraines, h/o endometrial ablation and ovarian vein embolization, genital herpes, insomnia, LGA fetus, nausea and vomiting, polyhydramnios, quad screen positive for Down's Syndrome, and previous x 3. She was GBS negative. Daily clinical course 10/02/21 11:30: Pt brought to L&D triage for evaluation of possible labor. Pt accompanied by her spouse. Pt spouse poor historian; unable to obtain history- allergies at this time. Pt taken from registration to triage area via . Pt unresponsive, actively seizing with snorous respirations. customer service agent, Kassy, called and requesting assistance. 11:35: Multiple staff at bedside. Pt 02 sat 67% on nonrebreather, unable to read BP at this time. Yifan Theodore CRNA, at bedside for intubation and assistance with IV insertion. INT attempt by multiple RNs unsuccessful at this time. 11:42: Pt being bagged by AUTHORIZATION MANAGER, 02% 79%. No pulse palpated, compressions started at this time; bharati young called and Dr. Newberry preparing OR for emergent c/s. 11:44: Continued compressions on stretcher while transporting pt to OR 1. Pt being bagged with jaw thrust manuever in place by KORIN Stringer student. 11:45: Arrival to OR 1. Dr. Newberry and Dr. Portillo present for emergent c/s. Code team arrived for continued care. patient revived and c/s done Patient has been bleeding from C/s site followed by supracervical hysterectomy for severe bleeding Patient transfused multiple units of PRBC, Patient in DIC. Transferred to the ICU 10/03. Patient seen and examined at bedside this morning. Patient is nonresponsive and mechanically ventilated. On pressors. Labs reviewed-has leukocytosis, anemia, thrombocytopenia, ADOLPH and lactic acidosis. Started on IV antibiotics to cover possible sepsis secondary to DIC. Hematology oncology recommendations appreciated-needs additional cryoprecipitate and FFP. Monitor D-dimer, fibrinogen and frequent labs. Nephrology consulted for lactic acidosis and ADOLPH. 10/04. Remains mechanically ventilated. [place] antibiotics. Labs shows improved acidosis - lactic acid 3.5. Hb drop noted. Getting transfused 2 units PRBCs. Platelet count is ~40k. Continue to monitor labs closely. Critical care team on board. 10/05; xray reviewed, concerning for multifocal infilrate, likely underlying Pneumonia, will add ID consult to assist with management of this critically ill patient, start tube feed, closely monitor renal system 10/06: Resumed care, remains on mechanical ventilation. No active bleeding, H&H stable. Continue to monitor CBC and BMP. Continue IV antibiotic for underlying pneumonia. Follow critical care and ID recommendation. 10/07: Remains on mechanical ventilation. No active bleeding, H&H stable. Critical care following, wean off ventilation as tolerated. 10/08: Patient had another cardiac arrest last night. Remains on mechanical ventilation, update family. Continue supportive care -poor prognosis 10/09: Called patient mother and discussed about patient care and management. Answered all question to best of my knowledge and family satisfaction. Patient remains on mechanical ventilation, cardiac arrest x2 so far. Critically sick, poor prognosis 10/10: remains on mechanical ventilation. h/h stable, no active bleeding. monitor CBC/BMP 10/11: WBC trended up with diarrhea, started on vancomycin po. remains on MV, off pressor, tolerating TF 10/12: remains on MV, off pressor, tolerating TF. called family for update but unable to reach, could not leave message as it was full. cont supportive care, wean off vent as tolerated. 10/13/2020; patient is on mechanical ventilation, tolerating tube feeding. Patient has labored breathing. Neuro was consulted and recommend MRI. Patient is on Precedex. Rectal tube in place. 10/14/2020; patient is on mechanical ventilation, Precedex. Patient had fever and blood culture ordered. Patient is on IV vancomycin per ID recommendation. Neuro consulted and recommend MRI. Continue to monitor. Prognosis is guarded. 10/15/2020; patient is on mechanical ventilation, Precedex. Patient had fever and blood culture ordered. Patient is on IV vancomycin per ID recommendation. Neuro consulted and recommend MRI. Continue to monitor. Prognosis is guarded. 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 12/06/20; anoxic brain injury. Awaiting placement. 12/07/2020; anoxic brain injury, awaiting placement. 12/09/2020; anoxic brain injury, awaiting placement. 12/10/2020; patient had episodes of fever overnight. CBC, BMP, blood culture, UA and chest x-ray ordered, will follow and manage accordingly. Urinalysis is suggestive of UTI and I put the patient on ceftriaxone, order urine culture. Chest x-ray is normal. 12/11/2020; patient is on ceftriaxone day 2 for UTI. We will continue to follow urine culture. 12/12/2020. Day #3 of Rocephin for UTI. We will continue for 2 more days while she is here. Present UTI. 12/13/2020. Day #4 of Rocephin for UTI. Patient remains on 50% with tracheostomy. Remains unresponsive with evidence of anoxic encephalopathy unable to make needs known. 12/14/2020. Day #5 of Rocephin for UTI completed today. Remains encephalopathic unable to make needs known. Remains on 50% unable to decrease oxygen via tracheostomy. Overall prognosis remains extremely poor. 12/15: Continue to monitor. Stop and monitor antibiotics at this time. Continue to wean oxygen as tolerated. Wean oxygen as tolerated. Case management working on placement. 12/16: Continue supportive care aspiration precautions. Awaiting placement discussion. Monitor fever curve. Prognosis remains poor no evidence of neurological recovery as of today 12/17: Continue supportive care, check labs and chest xray. Still monitor off antibiotics. Monitor Sodium level 12/18: Patient remains with intermittent low grade fever, reviewed EEG from September again, consistent for Ischemic Hypoxic Encephalopathy, patient with decorticating posturing type presentation. Will discuss with r developer to optimize diet so we can discontinue D5. CXR with no abnormality. Discussed extensively with the nursing staff at bedside CXR IMPRESSION: 1. No acute findings. 12/19: No clinical change 12/20: No clinical change, now off abx, monitor, discussed her medications with our pharmacist I believe that her posture and rigidity is likely from underlying anoxic encephalopathy. Continue to monitor and await placement decision. Continue aggressive suctioning. Plan discussed in detail with the nursing staff 12/21: Continue supportive care. Will give 500 cc bolus of fluid today to replace insensible losses. Tachycardia appears to be improving. Blood pressure precludes adjusting cardiac meds. Still awaiting placement from case management. Plan discussed in detail with the nursing staff 12/22. Continue support supportive care. Tracheostomy and PEG in place. Remains nonresponsive. Awaiting placement. 12/23. Continue support supportive care. Tracheostomy and PEG in place. Remains nonresponsive. Awaiting placement. Remains tachycardic. Decrease dose of lasix. Will try low dose metoprolol. Monitor BP closely 12/24. Continue support supportive care. Tracheostomy and PEG in place. Remains nonresponsive. Awaiting placement. Heart rate slightly better. Continue to monitor BP closely 12/25. Continue support supportive care. Tracheostomy and PEG in place. Remains nonresponsive. Awaiting placement. 12/26. Continue support supportive care. Tracheostomy and PEG in place. Remains nonresponsive. Awaiting placement 12/27. Continue support supportive care. Tracheostomy and PEG in place. Remains nonresponsive. Awaiting placement 12/28. Had fever yesterday. Blood culture drawn. UA - UTI - started on antibiotics. Now tracheal aspirate is growing GN rods. 12/29: Continue IV antibiotics, continue supportive care. Since admission patient has shown minimal or no chance of neurological recovery. Need 24/7 assistance. Currently on trach and PEG, nonverbal. Waiting on SNF placement. Discussed with child support case officer today. 12/30: Continue IV antibiotics for UTI, continue supportive care. Pending p lacement 12/31: continue supportive care. Pending placement, no change clinically Subjective Date of service: 12/31/20 Principal diagnosis: Eclampsia/HELLP Syndrome, ADOLPH, DIC; s/p , s/p supracervical hyst Interval history: Patient seen and examined. Medical records and medication list reviewed. No acute event overnight noted by the RN. H&H stable, afebrile Discussed with RN at the bedside Objective - Exam Narrative Exam: vITAL SIGNS: Reviewed. GENERAL: Trach in place HEAD: No signs of head trauma. EYES: Pupils are equal. NECK: No adenopathy, no JVD. CHEST: Diminished breath sounds CARDIAC: normal S1 and S2, without murmurs, gallops, or rubs. ABDOMEN: Soft, non tender and non distended. No rebound or guarding, and no masses palpated. Bowel Sounds normal MUSCULOSKELETAL: No edema NEUROLOGIC EXAM: nonverbal SKIN: No obvious lesions - Constitutional Vitals: Vital Signs - 12hr 12/31/20 12/31/20 12/31/20 08:00 09:04 10:01 Temperature Pulse Rate 120 H Respiratory Rate Blood Pressure 114/84 O2 Sat by Pulse 98 97 Oximetry O2 Sat by Pulse 98 Oximetry [ Assessment] 12/31/20 12/31/20 10:10 12:00 Temperature 99.7 F H Pulse Rate 120 H 110 H Respiratory 20 Rate Blood Pressure 114/84 105/76 O2 Sat by Pulse 97 Oximetry O2 Sat by Pulse Oximetry [ Assessment] - Labs CBC & Chem 7: 12/18/20 04:57 12/22/20 11:03 HEART Score - HEART Score Age: < 45 Risk factors: 1-2 risk factors - Critical Actions Critical Actions: >7 pts:50-65% risk of adverse cardiac event. Early invasive measures
[2021-01-01] MEDS: CEFEPIME/NS 2 GM/100 ML 2 GM/100 ML BAG IV SCH ×5 (00:22→18:37)
[2021-01-01] MEDS: ACETAMINOPHEN 325 MG/10.15 ML ORAL LIQD UNIT DOSE FEEDTUBE PRN (05:18)
[2021-01-01] MEDS: ENOXAPARIN 40 MG/0.4 ML INJ SUB-Q SCH (11:02)
[2021-01-01] MEDS: METOPROLOL TARTRATE 25 MG TAB PO SCH (11:03)
[2021-01-01] MEDS: FAMOTIDINE 20 MG TAB PO SCH (11:04)
[2021-01-01] MEDS: FUROSEMIDE 20 MG TAB PO SCH (11:06)
--- NOTE | 2021-01-01 13:08 | Progress Note ---
Assessment and Plan --DIC (disseminated intravascular coagulation) vs HELLP syndrome Resolved --Possible Eclampsia/HELLP Syndrome Resolved --s/p Cardiac arrest x2 on admission and on 10/07 ACLS protocol followed by revival Echo showed preserved Ef --Shock-resolved now awaiting placement s/p pressor support --ADOLPH-resolved Stable --Sepsis 2/2 UTI Switch ceftriaxone to cefepime to cover possible pseudomonas as sputum is also growing GN rods till 01/04/21 Previous urine culture grew pansensitive ecoli --DVT prophylaxis Patient presented with DIC No anticoagulants Overall prognosis extremely poor. Brief history 30 year old -Stateless female CHE 10/25/20 at 36w5d who presents with seizures in triage on 10/02/20. Pt was not able to provide history but per pt's , she presented to the hospital to return a 24 hour urine specimen for analysis. She then suddenly reported that she did not feel good. She was taken to labor and delivery and shortly after arrival, she began seizing. During this time, a code met was called because the patient became hypoxic. She was then noted to be without a pulse. Chest compressions were started immediately, and the patient was emergently taken to the operating room for delivery of the fetus. Off note, This patient has had care at [facility] with comanagement by [facility] since 11 wks complicated by ADHD, morbid obesity, generalized anxiety disorder, panic attacks, chronic narcotic use, fibromyalgia, GERD, Irritable Bowel Syndrome, Migraines, h/o endometrial ablation and ovarian vein embolization, genital herpes, insomnia, LGA fetus, nausea and vomiting, polyhydramnios, quad screen positive for Down's Syndrome, and previous x 3. She was GBS negative. Daily clinical course 10/02/21 11:30: Pt brought to L&D triage for evaluation of possible labor. Pt accompanied by her spouse. Pt spouse poor historian; unable to obtain history- allergies at this time. Pt taken from registration to triage area via . Pt unresponsive, actively seizing with snorous respirations. mortar maker, Kassy, called and requesting assistance. 11:35: Multiple staff at bedside. Pt 02 sat 67% on nonrebreather, unable to read BP at this time. Yifan Theodore CRNA, at bedside for intubation and assistance with IV insertion. INT attempt by multiple RNs unsuccessful at this time. 11:42: Pt being bagged by SALES OUTFITTER, 02% 79%. No pulse palpated, compressions started at this time; bharati young called and Dr. Newberry preparing OR for emergent c/s. 11:44: Continued compressions on stretcher while transporting pt to OR 1. Pt being bagged with jaw thrust manuever in place by KORIN Stringer student. 11:45: Arrival to OR 1. Dr. Newberry and Dr. Portillo present for emergent c/s. Code team arrived for continued care. patient revived and c/s done Patient has been bleeding from C/s site followed by supracervical hysterectomy for severe bleeding Patient transfused multiple units of PRBC, Patient in DIC. Transferred to the ICU 10/03. Patient seen and examined at bedside this morning. Patient is nonresponsive and mechanically ventilated. On pressors. Labs reviewed-has leukocytosis, anemia, thrombocytopenia, ADOLPH and lactic acidosis. Started on IV antibiotics to cover possible sepsis secondary to DIC. Hematology oncology recommendations appreciated-needs additional cryoprecipitate and FFP. Monitor D-dimer, fibrinogen and frequent labs. Nephrology consulted for lactic acidosis and ADOLPH. 10/04. Remains mechanically ventilated. [place] antibiotics. Labs shows improved acidosis - lactic acid 3.5. Hb drop noted. Getting transfused 2 units PRBCs. Platelet count is ~40k. Continue to monitor labs closely. Critical care team on board. 10/05; xray reviewed, concerning for multifocal infilrate, likely underlying Pneumonia, will add ID consult to assist with management of this critically ill patient, start tube feed, closely monitor renal system 10/06: Resumed care, remains on mechanical ventilation. No active bleeding, H&H stable. Continue to monitor CBC and BMP. Continue IV antibiotic for underlying pneumonia. Follow critical care and ID recommendation. 10/07: Remains on mechanical ventilation. No active bleeding, H&H stable. Critical care following, wean off ventilation as tolerated. 10/08: Patient had another cardiac arrest last night. Remains on mechanical ventilation, update family. Continue supportive care -poor prognosis 10/09: Called patient mother and discussed about patient care and management. Answered all question to best of my knowledge and family satisfaction. Patient remains on mechanical ventilation, cardiac arrest x2 so far. Critically sick, poor prognosis 10/10: remains on mechanical ventilation. h/h stable, no active bleeding. monitor CBC/BMP 10/11: WBC trended up with diarrhea, started on vancomycin po. remains on MV, off pressor, tolerating TF 10/12: remains on MV, off pressor, tolerating TF. called family for update but unable to reach, could not leave message as it was full. cont supportive care, wean off vent as tolerated. 10/13/2020; patient is on mechanical ventilation, tolerating tube feeding. Patient has labored breathing. Neuro was consulted and recommend MRI. Patient is on Precedex. Rectal tube in place. 10/14/2020; patient is on mechanical ventilation, Precedex. Patient had fever and blood culture ordered. Patient is on IV vancomycin per ID recommendation. Neuro consulted and recommend MRI. Continue to monitor. Prognosis is guarded. 10/15/2020; patient is on mechanical ventilation, Precedex. Patient had fever and blood culture ordered. Patient is on IV vancomycin per ID recommendation. Neuro consulted and recommend MRI. Continue to monitor. Prognosis is guarded. 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 12/06/20; anoxic brain injury. Awaiting placement. 12/07/2020; anoxic brain injury, awaiting placement. 12/09/2020; anoxic brain injury, awaiting placement. 12/10/2020; patient had episodes of fever overnight. CBC, BMP, blood culture, UA and chest x-ray ordered, will follow and manage accordingly. Urinalysis is suggestive of UTI and I put the patient on ceftriaxone, order urine culture. Chest x-ray is normal. 12/11/2020; patient is on ceftriaxone day 2 for UTI. We will continue to follow urine culture. 12/12/2020. Day #3 of Rocephin for UTI. We will continue for 2 more days while she is here. Present UTI. 12/13/2020. Day #4 of Rocephin for UTI. Patient remains on 50% with tracheostomy. Remains unresponsive with evidence of anoxic encephalopathy unable to make needs known. 12/14/2020. Day #5 of Rocephin for UTI completed today. Remains encephalopathic unable to make needs known. Remains on 50% unable to decrease oxygen via tracheostomy. Overall prognosis remains extremely poor. 12/15: Continue to monitor. Stop and monitor antibiotics at this time. Continue to wean oxygen as tolerated. Wean oxygen as tolerated. Case management working on placement. 12/16: Continue supportive care aspiration precautions. Awaiting placement discussion. Monitor fever curve. Prognosis remains poor no evidence of neurological recovery as of today 12/17: Continue supportive care, check labs and chest xray. Still monitor off antibiotics. Monitor Sodium level 12/18: Patient remains with intermittent low grade fever, reviewed EEG from September again, consistent for Ischemic Hypoxic Encephalopathy, patient with decorticating posturing type presentation. Will discuss with ladies attendant to optimize diet so we can discontinue D5. CXR with no abnormality. Discussed extensively with the nursing staff at bedside CXR IMPRESSION: 1. No acute findings. 12/19: No clinical change 12/20: No clinical change, now off abx, monitor, discussed her medications with our pharmacist I believe that her posture and rigidity is likely from underlying anoxic encephalopathy. Continue to monitor and await placement decision. Continue aggressive suctioning. Plan discussed in detail with the nursing staff 12/21: Continue supportive care. Will give 500 cc bolus of fluid today to replace insensible losses. Tachycardia appears to be improving. Blood pressure precludes adjusting cardiac meds. Still awaiting placement from case management. Plan discussed in detail with the nursing staff 12/22. Continue support supportive care. Tracheostomy and PEG in place. Remains nonresponsive. Awaiting placement. 12/23. Continue support supportive care. Tracheostomy and PEG in place. Remains nonresponsive. Awaiting placement. Remains tachycardic. Decrease dose of lasix. Will try low dose metoprolol. Monitor BP closely 12/24. Continue support supportive care. Tracheostomy and PEG in place. Remains nonresponsive. Awaiting placement. Heart rate slightly better. Continue to monitor BP closely 12/25. Continue support supportive care. Tracheostomy and PEG in place. Remains nonresponsive. Awaiting placement. 12/26. Continue support supportive care. Tracheostomy and PEG in place. Remains nonresponsive. Awaiting placement 12/27. Continue support supportive care. Tracheostomy and PEG in place. Remains nonresponsive. Awaiting placement 12/28. Had fever yesterday. Blood culture drawn. UA - UTI - started on antibiotics. Now tracheal aspirate is growing GN rods. 12/29: Continue IV antibiotics, continue supportive care. Since admission patient has shown minimal or no chance of neurological recovery. Need 24/7 assistance. Currently on trach and PEG, nonverbal. Waiting on SNF placement. Discussed with welfare case worker today. 12/30: Continue IV antibiotics for UTI, continue supportive care. Pending p lacement 12/31: continue supportive care. continue supportive care. Pending placement 01/01: continue supportive care. Pending placement. cont Iv abx for UTI till 01/04 Subjective Date of service: 01/01/21 Principal diagnosis: Eclampsia/HELLP Syndrome, ADOLPH, DIC; s/p , s/p supracervical hyst Interval history: Patient seen and examined. Medical records and medication list reviewed. No acute event overnight noted by the RN. H&H stable, afebrile Discussed with RN at the bedside Objective - Exam Narrative Exam: vITAL SIGNS: Reviewed. GENERAL: Trach in place HEAD: No signs of head trauma. EYES: Pupils are equal. NECK: No adenopathy, no JVD. CHEST: Diminished breath sounds CARDIAC: normal S1 and S2, without murmurs, gallops, or rubs. ABDOMEN: Soft, non tender and non distended. No rebound or guarding, and no masses palpated. Bowel Sounds normal MUSCULOSKELETAL: No edema NEUROLOGIC EXAM: nonverbal SKIN: No obvious lesions - Constitutional Vitals: Vital Signs - 12hr 01/01/21 01/01/21 01/01/21 04:56 05:06 05:18 Temperature 100.9 F H Pulse Rate 116 H Respiratory 16 20 Rate Blood Pressure 117/76 O2 Sat by Pulse 98 97 Oximetry O2 Sat by Pulse 98 Oximetry [ Assessment] 01/01/21 01/01/21 01/01/21 06:00 06:18 08:13 Temperature Pulse Rate 116 H Respiratory 18 Rate Blood Pressure O2 Sat by Pulse 100 Oximetry O2 Sat by Pulse Oximetry [ Assessment] 01/01/21 01/01/21 01/01/21 08:14 10:57 11:03 Temperature 100.8 F H Pulse Rate 110 H 110 H Respiratory 18 Rate Blood Pressure 127/75 O2 Sat by Pulse 100 Oximetry O2 Sat by Pulse 100 Oximetry [ Assessment] - Labs CBC & Chem 7: 12/18/20 04:57 12/22/20 11:03 Labs: Abnormal lab results 01/01/21 Range/Units 11:44 POC Glucose 107 H (70-105) mg/dL HEART Score - HEART Score Age: < 45 Risk factors: 1-2 risk factors - Critical Actions Critical Actions: >7 pts:50-65% risk of adverse cardiac event. Early invasive measures
[2021-01-02] MEDS: METOPROLOL TARTRATE 25 MG TAB PO SCH ×3 (00:21→21:13)
[2021-01-02] MEDS: CEFEPIME/NS 2 GM/100 ML 2 GM/100 ML BAG IV SCH ×3 (00:22→16:33)
[2021-01-02] MEDS: FAMOTIDINE 20 MG TAB PO SCH ×3 (00:22→21:13)
[2021-01-02] MEDS: ACETAMINOPHEN 325 MG/10.15 ML ORAL LIQD UNIT DOSE FEEDTUBE PRN ×3 (00:33→21:13)
[2021-01-02] MEDS ORDERED: SODIUM CHLORIDE 0.9% 1000 ML 1,000 ML IV SCH (06:15)
[2021-01-02 07:05] LABS: Basophils % (Auto) 0.4 % (0.0-1.8); Eosinophils # (Auto) 0.2 K/mm3 (0.0-0.4); Eosinophils % (Auto) 1.9 % (0.0-4.3); Hematocrit 43.8 % (30.3-42.9); Hemoglobin 14.1 gm/dl (10.1-14.3); Lymphocytes # (Auto) 1.8 K/mm3 (1.2-5.4); Lymphocytes % (Auto) 19.4 % (13.4-35.0); Mean Corpuscular HGB Conc 32 % (30-34); Mean Corpuscular Volume 78 fl (79-97); Monocytes # (Auto) 0.9 K/mm3 (0.0-0.8); Monocytes % (Auto) 9.5 % (0.0-7.3); Platelet Count 246 K/mm3 (140-440); Red Blood Count 5.61 M/mm3 (3.65-5.03); Red Cell Distribution Width 14.6 % (13.2-15.2)
[2021-01-02 07:22] LABS: Blood Urea Nitrogen 21 mg/dL (7-17); Calcium 9.9 mg/dL (8.4-10.2); Hemolysis Index 11
[2021-01-02 07:25] LABS: BUN/Creatinine Ratio 30
[2021-01-02] MEDS: FUROSEMIDE 20 MG TAB PO SCH (10:41)
[2021-01-02] MEDS: ENOXAPARIN 40 MG/0.4 ML INJ SUB-Q SCH (10:41)
--- NOTE | 2021-01-02 11:36 | Progress Note ---
Assessment and Plan --DIC (disseminated intravascular coagulation) vs HELLP syndrome Resolved --Possible Eclampsia/HELLP Syndrome Resolved --s/p Cardiac arrest x2 on admission and on 10/07 ACLS protocol followed by revival Echo showed preserved Ef --Shock-resolved now awaiting placement s/p pressor support --ADOLPH-resolved Stable --Sepsis 2/2 UTI Switch ceftriaxone to cefepime to cover possible pseudomonas as sputum is also growing GN rods till 01/04/21 Previous urine culture grew pansensitive ecoli --Hypernatremia, start on hypotonic fluid --DVT prophylaxis Patient presented with DIC No anticoagulants Overall prognosis extremely poor. Brief history 30 year old -[place] female CHE 10/25/20 at 36w5d who presents with seizures in triage on 10/02/20. Pt was not able to provide history but per pt's , she presented to the hospital to return a 24 hour urine specimen for analysis. She then suddenly reported that she did not feel good. She was taken to labor and delivery and shortly after arrival, she began seizing. During this time, a code met was called because the patient became hypoxic. She was then noted to be without a pulse. Chest compressions were started immediately, and the patient was emergently taken to the operating room for delivery of the fetus. Off note, This patient has had care at [facility] with comanagement by [facility] since 11 wks complicated by ADHD, morbid obesity, generalized anxiety disorder, panic attacks, chronic narcotic use, fibromyalgia, GERD, Irritable Bowel Syndrome, Migraines, h/o endometrial ablation and ovarian vein embolization, genital herpes, insomnia, LGA fetus, nausea and vomiting, polyhydramnios, quad screen positive for Down's Syndrome, and previous x 3. She was GBS negative. Daily clinical course 10/02/21 11:30: Pt brought to L&D triage for evaluation of possible labor. Pt accompanied by her spouse. Pt spouse poor historian; unable to obtain history- allergies at this time. Pt taken from registration to triage area via . Pt unresponsive, actively seizing with snorous respirations. radius grinder, Kassy, called and requesting assistance. 11:35: Multiple staff at bedside. Pt 02 sat 67% on nonrebreather, unable to read BP at this time. Yifan Theodore CRNA, at bedside for intubation and assistance with IV insertion. INT attempt by multiple RNs unsuccessful at this time. 11:42: Pt being bagged by KORIN, 02% 79%. No pulse palpated, compressions started at this time; bharati young called and Dr. Newberry preparing OR for emergent c/s. 11:44: Continued compressions on stretcher while transporting pt to OR 1. Pt being bagged with jaw thrust manuever in place by KORIN Stringer student. 11:45: Arrival to OR 1. Dr. Newberry and Dr. Portillo present for emergent c/s. Code team arrived for continued care. patient revived and c/s done Patient has been bleeding from C/s site followed by supracervical hysterectomy for severe bleeding Patient transfused multiple units of PRBC, Patient in DIC. Transferred to the ICU 10/03. Patient seen and examined at bedside this morning. Patient is n onresponsive and mechanically ventilated. On pressors. Labs reviewed-has leukocytosis, anemia, thrombocytopenia, ADOLPH and lactic acidosis. Started on IV antibiotics to cover possible sepsis secondary to DIC. Hematology oncology recommendations appreciated-needs additional cryoprecipitate and FFP. Monitor D-dimer, fibrinogen and frequent labs. Nephrology consulted for lactic acidosis and ADOLPH. 10/04. Remains mechanically ventilated. [place] antibiotics. Labs shows improved acidosis - lactic acid 3.5. Hb drop noted. Getting transfused 2 units PRBCs. Platelet count is ~40k. Continue to monitor labs closely. Critical care team on board. 10/05; xray reviewed, concerning for multifocal infilrate, likely underlying Pneumonia, will add ID consult to assist with management of this critically ill patient, start tube feed, closely monitor renal system 10/06: Resumed care, remains on mechanical ventilation. No active bleeding, H&H stable. Continue to monitor CBC and BMP. Continue IV antibiotic for underlying pneumonia. Follow critical care and ID recommendation. 10/07: Remains on mechanical ventilation. No active bleeding, H&H stable. Critical care following, wean off ventilation as tolerated. 10/08: Patient had another cardiac arrest last night. Remains on mechanical ventilation, update family. Continue supportive care -poor prognosis 10/09: Called patient mother and discussed about patient care and management. Answered all question to best of my knowledge and family satisfaction. Patient remains on mechanical ventilation, cardiac arrest x2 so far. Critically sick, p oor prognosis 10/10: remains on mechanical ventilation. h/h stable, no active bleeding. monitor CBC/BMP 10/11: WBC trended up with diarrhea, started on vancomycin po. remains on MV, off pressor, tolerating TF 10/12: remains on MV, off pressor, tolerating TF. called family for update but unable to reach, could not leave message as it was full. cont supportive care, wean off vent as tolerated. 10/13/2020; patient is on mechanical ventilation, tolerating tube feeding. Patient has labored breathing. Neuro was consulted and recommend MRI. Patient is on Precedex. Rectal tube in place. 10/14/2020; patient is on mechanical ventilation, Precedex. Patient had fever and blood culture ordered. Patient is on IV vancomycin per ID recommendation. Neuro consulted and recommend MRI. Continue to monitor. Prognosis is guarded. 10/15/2020; patient is on mechanical ventilation, Precedex. Patient had fever and blood culture ordered. Patient is on IV vancomycin per ID recommendation. Neuro consulted and recommend MRI. Continue to monitor. Prognosis is guarded. 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 12/06/20; anoxic brain injury. Awaiting placement. 12/07/2020; anoxic brain injury, awaiting placement. 12/09/2020; anoxic brain injury, awaiting placement. 12/10/2020; patient had episodes of fever overnight. CBC, BMP, blood culture, UA and chest x-ray ordered, will follow and manage accordingly. Urinalysis is suggestive of UTI and I put the patient on ceftriaxone, order urine culture. Chest x-ray is normal. 12/11/2020; patient is on ceftriaxone day 2 for UTI. We will continue to follow urine culture. 12/12/2020. Day #3 of Rocephin for UTI. We will continue for 2 more days while she is here. Present UTI. 12/13/2020. Day #4 of Rocephin for UTI. Patient remains on 50% with tracheostomy. Remains unresponsive with evidence of anoxic encephalopathy unable to make needs known. 12/14/2020. Day #5 of Rocephin for UTI completed today. Remains encephalopathic unable to make needs known. Remains on 50% unable to decrease oxygen via tracheostomy. Overall prognosis remains extremely poor. 12/15: Continue to monitor. Stop and monitor antibiotics at this time. Continue to wean oxygen as tolerated. Wean oxygen as tolerated. Case management working on placement. 12/16: Continue supportive care aspiration precautions. Awaiting placement discussion. Monitor fever curve. Prognosis remains poor no evidence of neurological recovery as of today 12/17: Continue supportive care, check labs and chest xray. Still monitor off antibiotics. Monitor Sodium level 12/18: Patient remains with intermittent low grade fever, reviewed EEG from September again, consistent for Ischemic Hypoxic Encephalopathy, patient with decorticating posturing type presentation. Will discuss with coal trimmer to optimize diet so we can discontinue D5. CXR with no abnormality. Discussed ext ensively with the nursing staff at bedside CXR IMPRESSION: 1. No acute findings. 12/19: No clinical change 12/20: No clinical change, now off abx, monitor, discussed her medications with our pharmacist I believe that her posture and rigidity is likely from underlying anoxic encephalopathy. Continue to monitor and await placement decision. Continue aggressive suctioning. Plan discussed in detail with the nursing staff 12/21: Continue supportive care. Will give 500 cc bolus of fluid today to replace insensible losses. Tachycardia appears to be improving. Blood pressure precludes adjusting cardiac meds. Still awaiting placement from case management. Plan discussed in detail with the nursing staff 12/22. Continue support supportive care. Tracheostomy and PEG in place. Remains nonresponsive. Awaiting placement. 12/23. Continue support supportive care. Tracheostomy and PEG in place. Remains nonresponsive. Awaiting placement. Remains tachycardic. Decrease dose of lasix. Will try low dose metoprolol. Monitor BP closely 12/24. Continue support supportive care. Tracheostomy and PEG in place. Remains nonresponsive. Awaiting placement. Heart rate slightly better. Continue to monitor BP closely 12/25. Continue support supportive care. Tracheostomy and PEG in place. Remains nonresponsive. Awaiting placement. 12/26. Continue support supportive care. Tracheostomy and PEG in place. Remains nonresponsive. Awaiting placement 12/27. Continue support supportive care. Tracheostomy and PEG in place. Remains nonresponsive. Awaiting placement 12/28. Had fever yesterday. Blood culture drawn. UA - UTI - started on antibiotics. Now tracheal aspirate is growing GN rods. 3/16: Continue IV antibiotics, continue supportive care. Since admission patient has shown minimal or no chance of neurological recovery. Need 24/7 assistance. Currently on trach and PEG, nonverbal. Waiting on SNF placement. Discussed with manager case today. 12/30: Continue IV antibiotics for UTI, continue supportive care. Pending placement 12/31: continue supportive care. continue supportive care. Pending placement 01/01: continue supportive care. Pending placement. cont Iv abx for UTI till 01/04 01/02: Continue supportive care, pending placement. Sodium level slightly elevated, will start hypotonic fluid. Continue antibiotics till 01/04 Subjective Date of service: 01/02/21 Principal diagnosis: Eclampsia/HELLP Syndrome, ADOLPH, DIC; s/p , s/p supracervical hyst Interval history: Patient seen and examined. Medical records and medication list reviewed. No acute event overnight noted by the RN. H&H stable, afebrile Discussed with RN at the bedside Objective - Exam Narrative Exam: vITAL SIGNS: Reviewed. GENERAL: Trach in place HEAD: No signs of head trauma. EYES: Pupils are equal. NECK: No adenopathy, no JVD. CHEST: Diminished breath sounds CARDIAC: normal S1 and S2, without murmurs, gallops, or rubs. ABDOMEN: Soft, non tender and non distended. No rebound or guarding, and no masses palpated. Bowel Sounds normal MUSCULOSKELETAL: No edema NEUROLOGIC EXAM: nonverbal SKIN: No obvious lesions - Constitutional Vitals: Vital Signs - 12hr 01/02/21 01/02/21 01/02/21 00:00 00:30 05:57 Temperature 100.9 F H 101.7 F H Pulse Rate 121 H 117 H Respiratory 18 19 Rate Blood Pressure 117/73 105/74 O2 Sat by Pulse 96 99 Oximetry O2 Sat by Pulse 99 Oximetry [ Assessment] 01/02/21 01/02/21 01/02/21 06:10 06:28 10:41 Temperature Pulse Rate 121 H 121 H Respiratory 20 Rate Blood Pressure O2 Sat by Pulse Oximetry O2 Sat by Pulse Oximetry [ Assessment] - Labs CBC & Chem 7: 01/02/21 06:47 01/02/21 06:47 Labs: Abnormal lab results 01/01/21 01/01/21 01/02/21 Range/Units 11:44 16:21 00:32 RBC (3.65-5.03) M/mm3 Hct (30.3-42.9) % MCV (79-97) fl MCH (28-32) pg [place] % (Auto) (0.0-7.3) % [place] # (Auto) (0.0-0.8) K/mm3 Sodium (137-145) mmol/L Chloride (98-107) mmol/L Carbon Dioxide (22-30) mmol/L BUN (7-17) mg/dL Glucose (65-100) mg/dL POC Glucose 107 H 106 H 113 H (70-105) mg/dL 01/02/21 01/02/21 Range/Units 06:47 06:47 RBC 5.61 H (3.65-5.03) M/mm3 Hct 43.8 H (30.3-42.9) % MCV 78 L (79-97) fl MCH 25 L (28-32) pg [place] % (Auto) 9.5 H (0.0-7.3) % [place] # (Auto) 0.9 H (0.0-0.8) K/mm3 Sodium 152 H (137-145) mmol/L Chloride 117.8 H (98-107) mmol/L Carbon Dioxide 20 L (22-30) mmol/L BUN 21 H (7-17) mg/dL Glucose 125 H (65-100) mg/dL POC Glucose (70-105) mg/dL HEART Score - HEART Score Age: < 45 Risk factors: 1-2 risk factors - Critical Actions Critical Actions: >7 pts:50-65% risk of adverse cardiac event. Early invasive measures
[2021-01-02] MEDS: D5W/0.2% NACL 1,000 ML IV SCH (17:36)
[2021-01-03] MEDS: CEFEPIME/NS 2 GM/100 ML 2 GM/100 ML BAG IV SCH ×4 (00:05→23:22)
[2021-01-03] MEDS: D5W/0.2% NACL 1,000 ML IV SCH (05:07)
[2021-01-03 06:00] LABS: Blood Urea Nitrogen 18 mg/dL (7-17); Calcium 9.3 mg/dL (8.4-10.2); Hemolysis Index 5
[2021-01-03 06:01] LABS: BUN/Creatinine Ratio 30
[2021-01-03] MEDS: FAMOTIDINE 20 MG TAB PO SCH ×2 (09:42→21:47)
[2021-01-03] MEDS: ENOXAPARIN 40 MG/0.4 ML INJ SUB-Q SCH (09:42)
[2021-01-03] MEDS: METOPROLOL TARTRATE 25 MG TAB PO SCH ×2 (09:43→21:46)
[2021-01-03] MEDS: FUROSEMIDE 20 MG TAB PO SCH (09:44)
--- NOTE | 2021-01-03 11:35 | Progress Note ---
Assessment and Plan --DIC (disseminated intravascular coagulation) vs HELLP syndrome Resolved --Possible Eclampsia/HELLP Syndrome Resolved --s/p Cardiac arrest x2 on admission and on 10/07 ACLS protocol followed by revival Echo showed preserved Ef --Shock-resolved now awaiting placement s/p pressor support --ADOLPH-resolved Stable --Sepsis 2/2 UTI Switch ceftriaxone to cefepime to cover possible pseudomonas as sputum is also growing GN rods till 01/04/21 Previous urine culture grew pansensitive ecoli --Hypernatremia, start on hypotonic fluid --DVT prophylaxis Patient presented with DIC No anticoagulants Overall prognosis extremely poor. Brief history 30 year old -Maur[place] female CHE 10/25/20 at 36w5d who presents with seizures in triage on 10/02/20. Pt was not able to provide history but per pt's , she presented to the hospital to return a 24 hour urine specimen for analysis. She then suddenly reported that she did not feel good. She was taken to labor and delivery and shortly after arrival, she began seizing. During this time, a code met was called because the patient became hypoxic. She was then noted to be without a pulse. Chest compressions were started immediately, and the patient was emergently taken to the operating room for delivery of the fetus. Off note, This patient has had care at [facility] with comanagement by [facility] since 11 wks complicated by ADHD, morbid obesity, generalized anxiety disorder, panic attacks, chronic narcotic use, fibromyalgia, GERD, Irritable Bowel Syndrome, Migraines, h/o endometrial ablation and ovarian vein embolization, genital herpes, insomnia, LGA fetus, nausea and vomiting, polyhydramnios, quad screen positive for Down's Syndrome, and previous x 3. She was GBS negative. Daily clinical course 10/02/21 11:30: Pt brought to L&D triage for evaluation of possible labor. Pt accompanied by her spouse. Pt spouse poor historian; unable to obtain history- allergies at this time. Pt taken from registration to triage area via . Pt unresponsive, actively seizing with snorous respirations. desk pen set assembler, Kassy, called and requesting assistance. 11:35: Multiple staff at bedside. Pt 02 sat 67% on nonrebreather, unable to read BP at this time. Yifan Theodore CRNA, at bedside for intubation and assistance with IV insertion. INT attempt by multiple RNs unsuccessful at this time. 11:42: Pt being bagged by KORIN, 02% 79%. No pulse palpated, compressions started at this time; bharati young called and Dr. Newberry preparing OR for emergent c/s. 11:44: Continued compressions on stretcher while transporting pt to OR 1. Pt being bagged with jaw thrust manuever in place by KORIN Stringer student. 11:45: Arrival to OR 1. Dr. Newberry and Dr. Portillo present for emergent c/s. Code team arrived for continued care. patient revived and c/s done Patient has been bleeding from C/s site followed by supracervical hysterectomy for severe bleeding Patient transfused multiple units of PRBC, Patient in DIC. Transferred to the ICU 10/03. Patient seen and examined at bedside this morning. Patient is n onresponsive and mechanically ventilated. On pressors. Labs reviewed-has leukocytosis, anemia, thrombocytopenia, ADOLPH and lactic acidosis. Started on IV antibiotics to cover possible sepsis secondary to DIC. Hematology oncology recommendations appreciated-needs additional cryoprecipitate and FFP. Monitor D-dimer, fibrinogen and frequent labs. Nephrology consulted for lactic acidosis and ADOLPH. 10/04. Remains mechanically ventilated. Kevin antibiotics. Labs shows improved acidosis - lactic acid 3.5. Hb drop noted. Getting transfused 2 units PRBCs. Platelet count is ~40k. Continue to monitor labs closely. Critical care team on board. 10/05; xray reviewed, concerning for multifocal infilrate, likely underlying Pneumonia, will add ID consult to assist with management of this critically ill patient, start tube feed, closely monitor renal system 10/06: Resumed care, remains on mechanical ventilation. No active bleeding, H&H stable. Continue to monitor CBC and BMP. Continue IV antibiotic for underlying pneumonia. Follow critical care and ID recommendation. 10/07: Remains on mechanical ventilation. No active bleeding, H&H stable. Critical care following, wean off ventilation as tolerated. 10/08: Patient had another cardiac arrest last night. Remains on mechanical ventilation, update family. Continue supportive care -poor prognosis 10/09: Called patient mother and discussed about patient care and management. Answered all question to best of my knowledge and family satisfaction. Patient remains on mechanical ventilation, cardiac arrest x2 so far. Critically sick, p oor prognosis 10/10: remains on mechanical ventilation. h/h stable, no active bleeding. monitor CBC/BMP 10/11: WBC trended up with diarrhea, started on vancomycin po. remains on MV, off pressor, tolerating TF 10/12: remains on MV, off pressor, tolerating TF. called family for update but unable to reach, could not leave message as it was full. cont supportive care, wean off vent as tolerated. 10/13/2020; patient is on mechanical ventilation, tolerating tube feeding. Patient has labored breathing. Neuro was consulted and recommend MRI. Patient is on Precedex. Rectal tube in place. 10/14/2020; patient is on mechanical ventilation, Precedex. Patient had fever and blood culture ordered. Patient is on IV vancomycin per ID recommendation. Neuro consulted and recommend MRI. Continue to monitor. Prognosis is guarded. 10/15/2020; patient is on mechanical ventilation, Precedex. Patient had fever and blood culture ordered. Patient is on IV vancomycin per ID recommendation. Neuro consulted and recommend MRI. Continue to monitor. Prognosis is guarded. 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 12/06/20; anoxic brain injury. Awaiting placement. 12/07/2020; anoxic brain injury, awaiting placement. 12/09/2020; anoxic brain injury, awaiting placement. 12/10/2020; patient had episodes of fever overnight. CBC, BMP, blood culture, UA and chest x-ray ordered, will follow and manage accordingly. Urinalysis is suggestive of UTI and I put the patient on ceftriaxone, order urine culture. Chest x-ray is normal. 12/11/2020; patient is on ceftriaxone day 2 for UTI. We will continue to follow urine culture. 12/12/2020. Day #3 of Rocephin for UTI. We will continue for 2 more days while she is here. Present UTI. 12/13/2020. Day #4 of Rocephin for UTI. Patient remains on 50% with tracheostomy. Remains unresponsive with evidence of anoxic encephalopathy unable to make needs known. 12/14/2020. Day #5 of Rocephin for UTI completed today. Remains encephalopathic unable to make needs known. Remains on 50% unable to decrease oxygen via tracheostomy. Overall prognosis remains extremely poor. 12/15: Continue to monitor. Stop and monitor antibiotics at this time. Continue to wean oxygen as tolerated. Wean oxygen as tolerated. Case management working on placement. 12/16: Continue supportive care aspiration precautions. Awaiting placement discussion. Monitor fever curve. Prognosis remains poor no evidence of neurological recovery as of today 12/17: Continue supportive care, check labs and chest xray. Still monitor off antibiotics. Monitor Sodium level 12/18: Patient remains with intermittent low grade fever, reviewed EEG from September again, consistent for Ischemic Hypoxic Encephalopathy, patient with decorticating posturing type presentation. Will discuss with personnel records clerk to optimize diet so we can discontinue D5. CXR with no abnormality. Discussed ext ensively with the nursing staff at bedside CXR IMPRESSION: 1. No acute findings. 12/19: No clinical change 12/20: No clinical change, now off abx, monitor, discussed her medications with our pharmacist I believe that her posture and rigidity is likely from underlying anoxic encephalopathy. Continue to monitor and await placement decision. Continue aggressive suctioning. Plan discussed in detail with the nursing staff 12/21: Continue supportive care. Will give 500 cc bolus of fluid today to replace insensible losses. Tachycardia appears to be improving. Blood pressure precludes adjusting cardiac meds. Still awaiting placement from case management. Plan discussed in detail with the nursing staff 12/22. Continue support supportive care. Tracheostomy and PEG in place. Remains nonresponsive. Awaiting placement. 12/23. Continue support supportive care. Tracheostomy and PEG in place. Remains nonresponsive. Awaiting placement. Remains tachycardic. Decrease dose of lasix. Will try low dose metoprolol. Monitor BP closely 12/24. Continue support supportive care. Tracheostomy and PEG in place. Remains nonresponsive. Awaiting placement. Heart rate slightly better. Continue to monitor BP closely 12/25. Continue support supportive care. Tracheostomy and PEG in place. Remains nonresponsive. Awaiting placement. 12/26. Continue support supportive care. Tracheostomy and PEG in place. Remains nonresponsive. Awaiting placement 12/27. Continue support supportive care. Tracheostomy and PEG in place. Remains nonresponsive. Awaiting placement 12/28. Had fever yesterday. Blood culture drawn. UA - UTI - started on antibiotics. Now tracheal aspirate is growing GN rods. 3/16: Continue IV antibiotics, continue supportive care. Since admission patient has shown minimal or no chance of neurological recovery. Need 24/7 assistance. Currently on trach and PEG, nonverbal. Waiting on SNF placement. Discussed with therapeutic case manager today. 12/30: Continue IV antibiotics for UTI, continue supportive care. Pending placement 12/31: continue supportive care. continue supportive care. Pending placement 01/01: continue supportive care. Pending placement. cont Iv abx for UTI till 01/04 01/02: Continue supportive care, pending placement. Sodium level slightly elevated, will start hypotonic fluid. Continue antibiotics till 01/04 01/03; cont hypotonic fluid, increase free water with TF for hypernatremia, follow BMP. cont supportive care. pending placement. cont cefepime. recx blood Subjective Date of service: 01/03/21 Principal diagnosis: Eclampsia/HELLP Syndrome, ADOLPH, DIC; s/p , s/p supra cervical hyst Interval history: Patient seen and examined. Medical records and medication list reviewed. No acute event overnight noted by the RN. H&H stable, vitals noted - low body temp Discussed with RN at the bedside Objective - Exam Narrative Exam: vITAL SIGNS: Reviewed. GENERAL: Trach in place HEAD: No signs of head trauma. EYES: Pupils are equal. NECK: No adenopathy, no JVD. CHEST: Diminished breath sounds CARDIAC: normal S1 and S2, without murmurs, gallops, or rubs. ABDOMEN: Soft, non tender and non distended. No rebound or guarding, and no masses palpated. Bowel Sounds normal MUSCULOSKELETAL: No edema NEUROLOGIC EXAM: nonverbal SKIN: No obvious lesions - Constitutional Vitals: Vital Signs - 12hr 01/02/21 01/03/21 01/03/21 23:46 03:48 06:00 Temperature 99.0 F Pulse Rate 107 H 107 H Respiratory 18 Rate Blood Pressure 102/67 O2 Sat by Pulse 99 97 Oximetry O2 Sat by Pulse 97 Oximetry [ Assessment] 01/03/21 01/03/21 06:07 09:43 Temperature 99.8 F H Pulse Rate 108 H 105 H Respiratory 17 Rate Blood Pressure 124/80 O2 Sat by Pulse 98 Oximetry O2 Sat by Pulse Oximetry [ Assessment] - Labs CBC & Chem 7: 01/02/21 06:47 01/03/21 05:04 Labs: Abnormal lab results 01/02/21 01/02/21 01/03/21 Range/Units 12:15 23:44 05:04 Sodium 153 H (137-145) mmol/L Chloride 119.1 H (98-107) mmol/L Carbon Dioxide 20 L (22-30) mmol/L BUN 18 H (7-17) mg/dL POC Glucose 111 H 120 H (70-105) mg/dL 01/03/21 Range/Units 06:18 Sodium (137-145) mmol/L Chloride (98-107) mmol/L Carbon Dioxide (22-30) mmol/L BUN (7-17) mg/dL POC Glucose 113 H (70-105) mg/dL HEART Score - HEART Score Age: < 45 Risk factors: 1-2 risk factors - Critical Actions Critical Actions: >7 pts:50-65% risk of adverse cardiac event. Early invasive measures
[2021-01-03] MEDS: DEXTROSE 5% IN WATER 1,000 ML IV SCH (12:25)
[2021-01-04] MEDS: DEXTROSE 5% IN WATER 1,000 ML IV SCH (05:30)
[2021-01-04 06:39] LABS: Blood Urea Nitrogen 15 mg/dL (7-17); Calcium 9.1 mg/dL (8.4-10.2); Hemolysis Index 5
[2021-01-04 06:48] LABS: BUN/Creatinine Ratio 30
--- NOTE | 2021-01-04 07:49 | Progress Note ---
Assessment and Plan --DIC (disseminated intravascular coagulation) vs HELLP syndrome Resolved --Possible Eclampsia/HELLP Syndrome Resolved --s/p Cardiac arrest x2 on admission and on 10/07 ACLS protocol followed by revival Echo showed preserved Ef --Shock-resolved now awaiting placement s/p pressor support --ADOLPH-resolved Stable --Sepsis 2/2 UTI Switch ceftriaxone to cefepime to cover possible pseudomonas as sputum is also growing GN rods till 01/04/21 Previous urine culture grew pansensitive ecoli --Hypernatremia, resolved, cont free water with TF --DVT prophylaxis Patient presented with DIC No anticoagulants Overall prognosis extremely poor. Brief history 30 year old -Y[place]i female CHE 10/25/20 at 36w5d who presents with seizures in triage on 10/02/20. Pt was not able to provide history but per pt's , she presented to the hospital to return a 24 hour urine specimen for analysis. She then suddenly reported that she did not feel good. She was taken to labor and delivery and shortly after arrival, she began seizing. During this time, a code met was called because the patient became hypoxic. She was then noted to be without a pulse. Chest compressions were started immediately, and the patient was emergently taken to the operating room for delivery of the fetus. Off note, This patient has had care at [facility] with comanagement by [facility] since 11 wks complicated by ADHD, morbid obesity, generalized anxiety disorder, panic attacks, chronic narcotic use, fibromyalgia, GERD, Irritable Bowel Syndrome, Migraines, h/o endometrial ablation and ovarian vein embolization, genital herpes, insomnia, LGA fetus, nausea and vomiting, polyhydramnios, quad screen positive for Down's Syndrome, and previous x 3. She was GBS negative. Daily clinical course 10/02/21 11:30: Pt brought to L&D triage for evaluation of possible labor. Pt accompanied by her spouse. Pt spouse poor historian; unable to obtain history- allergies at this time. Pt taken from registration to triage area via . Pt unresponsive, actively seizing with snorous respirations. phlebotomy manager, Kassy, called and requesting assistance. 11:35: Multiple staff at bedside. Pt 02 sat 67% on nonrebreather, unable to read BP at this time. Yifan Theodore CRNA, at bedside for intubation and assistance with IV insertion. INT attempt by multiple RNs unsuccessful at this time. 11:42: Pt being bagged by KORIN, 02% 79%. No pulse palpated, compressions started at this time; bharati young called and Dr. Newberry preparing OR for emergent c/s. 11:44: Continued compressions on stretcher while transporting pt to OR 1. Pt being bagged with jaw thrust manuever in place by KORIN Stringer student. 11:45: Arrival to OR 1. Dr. Newberry and Dr. Portillo present for emergent c/s. Code team arrived for continued care. patient revived and c/s done Patient has been bleeding from C/s site followed by supracervical hysterectomy for severe bleeding Patient transfused multiple units of PRBC, Patient in DIC. Transferred to the ICU 10/03. Patient seen and examined at bedside this morning. Patient is nonresponsive and mechanically ventilated. On pressors. Labs reviewed-has leukocytosis, anemia, thrombocytopenia, ADOLPH and lactic acidosis. Started on IV antibiotics to cover possible sepsis secondary to DIC. Hematology oncology recommendations appreciated-needs additional cryoprecipitate and FFP. Monitor D-dimer, fibrinogen and frequent labs. Nephrology consulted for lactic acidosis and ADOLPH. 10/04. Remains mechanically ventilated. Kevin antibiotics. Labs shows improved acidosis - lactic acid 3.5. Hb drop noted. Getting transfused 2 units PRBCs. Platelet count is ~40k. Continue to monitor labs closely. Critical care team on board. 10/05; xray reviewed, concerning for multifocal infilrate, likely underlying Pneumonia, will add ID consult to assist with management of this critically ill patient, start tube feed, closely monitor renal system 10/06: Resumed care, remains on mechanical ventilation. No active bleeding, H&H stable. Continue to monitor CBC and BMP. Continue IV antibiotic for underlying pneumonia. Follow critical care and ID recommendation. 10/07: Remains on mechanical ventilation. No active bleeding, H&H stable. Critical care following, wean off ventilation as tolerated. 10/08: Patient had another cardiac arrest last night. Remains on mechanical v entilation, update family. Continue supportive care -poor prognosis 10/09: Called patient mother and discussed about patient care and management. Answered all question to best of my knowledge and family satisfaction. Patient remains on mechanical ventilation, cardiac arrest x2 so far. Critically sick, poor prognosis 10/10: remains on mechanical ventilation. h/h stable, no active bleeding. mo nitor CBC/BMP 10/11: WBC trended up with diarrhea, started on vancomycin po. remains on MV, off pressor, tolerating TF 10/12: remains on MV, off pressor, tolerating TF. called family for update but unable to reach, could not leave message as it was full. cont supportive care, wean off vent as tolerated. 10/13/2020; patient is on mechanical ventilation, tolerating tube feeding. Patient has labored breathing. Neuro was consulted and recommend MRI. Patient is on Precedex. Rectal tube in place. 10/14/2020; patient is on mechanical ventilation, Precedex. Patient had fever and blood culture ordered. Patient is on IV vancomycin per ID recommendation. Neuro consulted and recommend MRI. Continue to monitor. Prognosis is guarded. 10/15/2020; patient is on mechanical ventilation, Precedex. Patient had fever and blood culture ordered. Patient is on IV vancomycin per ID recommendation. Neuro consulted and recommend MRI. Continue to monitor. Prognosis is guarded. 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 12/06/20; anoxic brain injury. Awaiting placement. 12/07/2020; anoxic brain injury, awaiting placement. 12/09/2020; anoxic brain injury, awaiting placement. 12/10/2020; patient had episodes of fever overnight. CBC, BMP, blood culture, UA and chest x-ray ordered, will follow and manage accordingly. Urinalysis is suggestive of UTI and I put the patient on ceftriaxone, order urine culture. Chest x-ray is normal. 12/11/2020; patient is on ceftriaxone day 2 for UTI. We will continue to follow urine culture. 12/12/2020. Day #3 of Rocephin for UTI. We will continue for 2 more days while she is here. Present UTI. 12/13/2020. Day #4 of Rocephin for UTI. Patient remains on 50% with tracheostomy. Remains unresponsive with evidence of anoxic encephalopathy u nable to make needs known. 12/14/2020. Day #5 of Rocephin for UTI completed today. Remains encephalopathic unable to make needs known. Remains on 50% unable to decrease oxygen via tracheostomy. Overall prognosis remains extremely poor. 12/15: Continue to monitor. Stop and monitor antibiotics at this time. Continue to wean oxygen as tolerated. Wean oxygen as tolerated. Case management working on placement. 12/16: Continue supportive care aspiration precautions. Awaiting placement discussion. Monitor fever curve. Prognosis remains poor no evidence of neurological recovery as of today 12/17: Continue supportive care, check labs and chest xray. Still monitor off antibiotics. Monitor Sodium level 12/18: Patient remains with intermittent low grade fever, reviewed EEG from September again, consistent for Ischemic Hypoxic Encephalopathy, patient with decorticating posturing type presentation. Will discuss with house mover helper to optimize diet so we can discontinue D5. CXR with no abnormality. Discussed extensively with the nursing staff at bedside CXR IMPRESSION: 1. No acute findings. 12/19: No clinical change 12/20: No clinical change, now off abx, monitor, discussed her medications with our pharmacist I believe that her posture and rigidity is likely from underlying anoxic encephalopathy. Continue to monitor and await placement decision. Continue aggressive suctioning. Plan discussed in detail with the nursing staff 12/21: Continue supportive care. Will give 500 cc bolus of fluid today to replace insensible losses. Tachycardia appears to be improving. Blood pressure precludes adjusting cardiac meds. Still awaiting placement from case management. Plan discussed in detail with the nursing staff 12/22. Continue support supportive care. Tracheostomy and PEG in place. Remains nonresponsive. Awaiting placement. 12/23. Continue support supportive care. Tracheostomy and PEG in place. Remains nonresponsive. Awaiting placement. Remains tachycardic. Decrease dose of lasix. Will try low dose metoprolol. Monitor BP closely 12/24. Continue support supportive care. Tracheostomy and PEG in place. Remains nonresponsive. Awaiting placement. Heart rate slightly better. Continue to monitor BP closely 12/25. Continue support supportive care. Tracheostomy and PEG in place. Remains nonresponsive. Awaiting placement. 12/26. Continue support supportive care. Tracheostomy and PEG in place. Remains nonresponsive. Awaiting placement 12/27. Continue support supportive care. Tracheostomy and PEG in place. Remains nonresponsive. Awaiting placement 12/28. Had fever yesterday. Blood culture drawn. UA - UTI - started on antibiotics. Now tracheal aspirate is growing GN rods. 12/29: Continue IV antibiotics, continue supportive care. Since admission patient has shown minimal or no chance of neurological recovery. Need 24/7 assistance. Currently on trach and PEG, nonverbal. Waiting on SNF placement. Discussed with housing case manager today. 12/30: Continue IV antibiotics for UTI, continue supportive care. Pending placement 12/31: continue supportive care. continue supportive care. Pending placement 01/01: continue supportive care. Pending placement. cont Iv abx for UTI till 01/04 01/02: Continue supportive care, pending placement. Sodium level slightly e levated, will start hypotonic fluid. Continue antibiotics till 01/04 01/03; cont hypotonic fluid, increase free water with TF for hypernatremia, follow BMP. cont supportive care. pending placement. cont cefepime. recx blood 01/04: resolved hyponatremia, cont supportive care, pending placement Subjective Date of service: 01/04/21 Principal diagnosis: Eclampsia/HELLP Syndrome, ADOLPH, DIC; s/p , s/p supracervical hyst Interval history: Patient seen and examined. Medical records and medication list reviewed. No acute event overnight noted by the RN. H&H stable, vitals noted Discussed with RN at the bedside Objective - Exam Narrative Exam: vITAL SIGNS: Reviewed. GENERAL: Trach in place HEAD: No signs of head trauma. EYES: Pupils are equal. NECK: No adenopathy, no JVD. CHEST: Diminished breath sounds CARDIAC: normal S1 and S2, without murmurs, gallops, or rubs. ABDOMEN: Soft, non tender and non distended. No rebound or guarding, and no masses palpated. Bowel Sounds normal MUSCULOSKELETAL: No edema NEUROLOGIC EXAM: nonverbal SKIN: No obvious lesions - Constitutional Vitals: Vital Signs - 12hr 01/03/21 01/03/21 01/03/21 21:42 21:45 21:46 Temperature 99.1 F Pulse Rate 110 H 110 H Respiratory 16 Rate Blood Pressure 116/74 116/74 O2 Sat by Pulse 99 Oximetry O2 Sat by Pulse Oximetry [ Assessment] 01/04/21 01/04/21 03:00 05:31 Temperature Pulse Rate 110 H Respiratory Rate Blood Pressure O2 Sat by Pulse Oximetry O2 Sat by Pulse 98 Oximetry [ Assessment] - Labs CBC & Chem 7: 01/02/21 06:47 01/04/21 05:56 Labs: Abnormal lab results 01/04/21 Range/Units 05:56 Chloride 109.8 H (98-107) mmol/L Creatinine 0.5 L (0.6-1.2) mg/dL Glucose 110 H (65-100) mg/dL HEART Score - HEART Score Age: < 45 Risk factors: 1-2 risk factors - Critical Actions Critical Actions: >7 pts:50-65% risk of adverse cardiac event. Early invasive measures
[2021-01-04] MEDS: CEFEPIME/NS 2 GM/100 ML 2 GM/100 ML BAG IV SCH (08:48)
[2021-01-04] MEDS: FAMOTIDINE 20 MG TAB PO SCH ×2 (09:03→22:53)
[2021-01-04] MEDS: METOPROLOL TARTRATE 25 MG TAB PO SCH ×2 (09:03→22:52)
[2021-01-04] MEDS: ENOXAPARIN 40 MG/0.4 ML INJ SUB-Q SCH (09:03)
[2021-01-04] MEDS: FUROSEMIDE 20 MG TAB PO SCH (09:03)
[2021-01-05] MEDS: DEXTROSE 5% IN WATER 1,000 ML IV SCH (04:42)
[2021-01-05] MEDS: ENOXAPARIN 40 MG/0.4 ML INJ SUB-Q SCH (09:59)
[2021-01-05] MEDS: FAMOTIDINE 20 MG TAB PO SCH ×2 (09:59→22:54)
[2021-01-05] MEDS: METOPROLOL TARTRATE 25 MG TAB PO SCH ×2 (09:59→22:54)
[2021-01-05] MEDS: FUROSEMIDE 20 MG TAB PO SCH (10:00)
--- NOTE | 2021-01-05 13:49 | Progress Note ---
Assessment and Plan --DIC (disseminated intravascular coagulation) vs HELLP syndrome Resolved --Possible Eclampsia/HELLP Syndrome Resolved --s/p Cardiac arrest x2 on admission and on 10/07 ACLS protocol followed by revival Echo showed preserved Ef --Shock-resolved now awaiting placement s/p pressor support --ADOLPH-resolved Stable --Sepsis 2/2 UTI s/p cefepime to cover possible pseudomonas as sputum is also growing GN rods till 01/04/21 Previous urine culture grew pansensitive ecoli --Hypernatremia, resolved, cont free water with TF --DVT prophylaxis Patient presented with DIC No anticoagulants Overall prognosis extremely poor. Brief history 30 year old -[place]ones[place] female CHE 10/25/20 at 36w5d who presents with seizures in triage on 10/02/20. Pt was not able to provide history but per pt's , she presented to the hospital to return a 24 hour urine specimen for analysis. She then suddenly reported that she did not feel good. She was taken to labor and delivery and shortly after arrival, she began seizing. During this time, a code met was called because the patient became hypoxic. She was then noted to be without a pulse. Chest compressions were started immediately, and the patient was emergently taken to the operating room for delivery of the fetus. Off note, This patient has had care at [facility] with comanagement by [facility] since 11 wks complicated by ADHD, morbid obesity, generalized anxiety disorder, panic attacks, chronic narcotic use, fibromyalgia, GERD, Irritable Bowel Syndrome, Migraines, h/o endometrial ablation and ovarian vein embolization, genital herpes, insomnia, LGA fetus, nausea and vomiting, polyhydramnios, quad screen positive for Down's Syndrome, and previous x 3. She was GBS negative. Daily clinical course 10/02/21 11:30: Pt brought to L&D triage for evaluation of possible labor. Pt accompanied by her spouse. Pt spouse poor historian; unable to obtain history- allergies at this time. Pt taken from registration to triage area via . Pt unresponsive, actively seizing with snorous respirations. coordinator of placement, Kassy, called and requesting assistance. 11:35: Multiple staff at bedside. Pt 02 sat 67% on nonrebreather, unable to read BP at this time. Yifan Theodore CRNA, at bedside for intubation and assistance with IV insertion. INT attempt by multiple RNs unsuccessful at this time. 11:42: Pt being bagged by KORIN, 02% 79%. No pulse palpated, compressions started at this time; bharati young called and Dr. Newberry preparing OR for emergent c/s. 11:44: Continued compressions on stretcher while transporting pt to OR 1. Pt being bagged with jaw thrust manuever in place by KORIN Stringer student. 11:45: Arrival to OR 1. Dr. Newberry and Dr. Portillo present for emergent c/s. Code team arrived for continued care. patient revived and c/s done Patient has been bleeding from C/s site followed by supracervical hysterectomy for severe bleeding Patient transfused multiple units of PRBC, Patient in DIC. Transferred to the ICU 10/03. Patient seen and examined at bedside this morning. Patient is nonresponsive and mechanically ventilated. On pressors. Labs reviewed-has leukocytosis, anemia, thrombocytopenia, ADOLPH and lactic acidosis. Started on IV antibiotics to cover possible sepsis secondary to DIC. Hematology oncology recommendations appreciated-needs additional cryoprecipitate and FFP. Monitor D-dimer, fibrinogen and frequent labs. Nephrology consulted for lactic acidosis and ADOLPH. 10/04. Remains mechanically ventilated. Kevin antibiotics. Labs shows improved acidosis - lactic acid 3.5. Hb drop noted. Getting transfused 2 units PRBCs. Platelet count is ~40k. Continue to monitor labs closely. Critical care team on board. 10/05; xray reviewed, concerning for multifocal infilrate, likely underlying Pneumonia, will add ID consult to assist with management of this critically ill patient, start tube feed, closely monitor renal system 10/06: Resumed care, remains on mechanical ventilation. No active bleeding, H&H stable. Continue to monitor CBC and BMP. Continue IV antibiotic for underlying pneumonia. Follow critical care and ID recommendation. 10/07: Remains on mechanical ventilation. No active bleeding, H&H stable. Critical care following, wean off ventilation as tolerated. 10/08: Patient had another cardiac arrest last night. Remains on mechanical ventilation, update family. Continue supportive care -poor prognosis 10/09: Called patient mother and discussed about patient care and management. Answered all question to best of my knowledge and family satisfaction. Patient remains on mechanical ventilation, cardiac arrest x2 so far. Critically sick, poor prognosis 10/10: remains on mechanical ventilation. h/h stable, no active bleeding. monitor CBC/BMP 10/11: WBC trended up with diarrhea, started on vancomycin po. remains on MV, off pressor, tolerating TF 10/12: remains on MV, off pressor, tolerating TF. called family for update but unable to reach, could not leave message as it was full. cont supportive care, wean off vent as tolerated. 10/13/2020; patient is on mechanical ventilation, tolerating tube feeding. Patient has labored breathing. Neuro was consulted and recommend MRI. Patient is on Precedex. Rectal tube in place. 10/14/2020; patient is on mechanical ventilation, Precedex. Patient had fever and blood culture ordered. Patient is on IV vancomycin per ID recommendation. Neuro consulted and recommend MRI. Continue to monitor. Prognosis is guarded. 10/15/2020; patient is on mechanical ventilation, Precedex. Patient had fever and blood culture ordered. Patient is on IV vancomycin per ID recommendation. Neuro consulted and recommend MRI. Continue to monitor. Prognosis is guarded. 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 12/06/20; anoxic brain injury. Awaiting placement. 12/07/2020; anoxic brain injury, awaiting placement. 12/09/2020; anoxic brain injury, awaiting placement. 12/10/2020; patient had episodes of fever overnight. CBC, BMP, blood culture, UA and chest x-ray ordered, will follow and manage accordingly. Urinalysis is suggestive of UTI and I put the patient on ceftriaxone, order urine culture. Chest x-ray is normal. 12/11/2020; patient is on ceftriaxone day 2 for UTI. We will continue to follow urine culture. 12/12/2020. Day #3 of Rocephin for UTI. We will continue for 2 more days while she is here. Present UTI. 12/13/2020. Day #4 of Rocephin for UTI. Patient remains on 50% with tracheostomy. Remains unresponsive with evidence of anoxic encephalopathy unable to make needs known. 12/14/2020. Day #5 of Rocephin for UTI completed today. Remains encephalopathic unable to make needs known. Remains on 50% unable to decrease oxygen via tracheostomy. Overall prognosis remains extremely poor. 12/15: Continue to monitor. Stop and monitor antibiotics at this time. Continue to wean oxygen as tolerated. Wean oxygen as tolerated. Case management working on placement. 12/16: Continue supportive care aspiration precautions. Awaiting placement discussion. Monitor fever curve. Prognosis remains poor no evidence of neurological recovery as of today 12/17: Continue supportive care, check labs and chest xray. Still monitor off antibiotics. Monitor Sodium level 12/18: Patient remains with intermittent low grade fever, reviewed EEG from September again, consistent for Ischemic Hypoxic Encephalopathy, patient with decorticating posturing type presentation. Will discuss with business unit controller to optimize diet so we can discontinue D5. CXR with no abnormality. Discussed extensively with the nursing staff at bedside CXR IMPRESSION: 1. No acute findings. 12/19: No clinical change 12/20: No clinical change, now off abx, monitor, discussed her medications with our pharmacist I believe that her posture and rigidity is likely from underlying anoxic encephalopathy. Continue to monitor and await placement decision. Continue aggressive suctioning. Plan discussed in detail with the nursing staff 12/21: Continue supportive care. Will give 500 cc bolus of fluid today to replace insensible losses. Tachycardia appears to be improving. Blood pressure precludes adjusting cardiac meds. Still awaiting placement from case management. Plan discussed in detail with the nursing staff 12/22. Continue support supportive care. Tracheostomy and PEG in place. Remains nonresponsive. Awaiting placement. 12/23. Continue support supportive care. Tracheostomy and PEG in place. Remains nonresponsive. Awaiting placement. Remains tachycardic. Decrease dose of lasix. Will try low dose metoprolol. Monitor BP closely 12/24. Continue support supportive care. Tracheostomy and PEG in place. Remains nonresponsive. Awaiting placement. Heart rate slightly better. Continue to monitor BP closely 12/25. Continue support supportive care. Tracheostomy and PEG in place. Remains nonresponsive. Awaiting placement. 12/26. Continue support supportive care. Tracheostomy and PEG in place. Remains nonresponsive. Awaiting placement 12/27. Continue support supportive care. Tracheostomy and PEG in place. Remains nonresponsive. Awaiting placement 12/28. Had fever yesterday. Blood culture drawn. UA - UTI - started on antibiotics. Now tracheal aspirate is growing GN rods. 12/29: Continue IV antibiotics, continue supportive care. Since admission patient has shown minimal or no chance of neurological recovery. Need 24/7 assistance. Currently on trach and PEG, nonverbal. Waiting on SNF placement. Discussed with case maker today. 12/30: Continue IV antibiotics for UTI, continue supportive care. Pending placement 12/31: continue supportive care. continue supportive care. Pending placement 01/01: continue supportive care. Pending placement. cont Iv abx for UTI till 01/04 01/02: Continue supportive care, pending placement. Sodium level slightly elevated, will start hypotonic fluid. Continue antibiotics till 01/04 01/03; cont hypotonic fluid, increase free water with TF for hypernatremia, follow BMP. cont supportive care. pending placement. cont cefepime. recx blood 01/04: resolved hyponatremia, cont supportive care, pending placement. Last day of supplement today. 01/05: Continue supportive care, pending placement. Monitor H&H and fever curve off antibiotic. Subjective Date of service: 01/05/21 Principal diagnosis: Eclampsia/HELLP Syndrome, ADOLPH, DIC; s/p , s/p supracervical hyst Interval history: Patient seen and examined. Medical records and medication list reviewed. No acute event overnight noted by the RN. H&H stable, vitals noted Discussed with RN at the bedside Objective - Exam Narrative Exam: vITAL SIGNS: Reviewed. GENERAL: Trach in place HEAD: No signs of head trauma. EYES: Pupils are equal. NECK: No adenopathy, no JVD. CHEST: Diminished breath sounds CARDIAC: normal S1 and S2, without murmurs, gallops, or rubs. ABDOMEN: Soft, non tender and non distended. No rebound or guarding, and no masses palpated. Bowel Sounds normal MUSCULOSKELETAL: No edema NEUROLOGIC EXAM: nonverbal SKIN: No obvious lesions - Constitutional Vitals: Vital Signs - 12hr 01/05/21 01/05/21 01/05/21 04:00 04:10 09:47 Temperature 99.1 F 98.8 F Pulse Rate 96 H 96 H Respiratory 18 20 Rate Blood Pressure 99/56 123/57 O2 Sat by Pulse 97 100 Oximetry O2 Sat by Pulse 98 Oximetry [ Assessment] 01/05/21 01/05/21 10:00 10:10 Temperature Pulse Rate Respiratory Rate Blood Pressure O2 Sat by Pulse 100 Oximetry O2 Sat by Pulse 100 Oximetry [ Assessment] - Labs CBC & Chem 7: 01/02/21 06:47 01/04/21 05:56 HEART Score - HEART Score Age: < 45 Risk factors: 1-2 risk factors - Critical Actions Critical Actions: >7 pts:50-65% risk of adverse cardiac event. Early invasive measures
[2021-01-06] MEDS: DEXTROSE 5% IN WATER 1,000 ML IV SCH (01:16)
[2021-01-06] MEDS: ENOXAPARIN 40 MG/0.4 ML INJ SUB-Q SCH (09:55)
[2021-01-06] MEDS: FUROSEMIDE 20 MG TAB PO SCH (09:55)
[2021-01-06] MEDS: METOPROLOL TARTRATE 25 MG TAB PO SCH ×2 (09:55→23:03)
[2021-01-06] MEDS: FAMOTIDINE 20 MG TAB PO SCH ×2 (09:55→23:04)
--- NOTE | 2021-01-06 12:47 | Progress Note ---
Assessment and Plan --DIC (disseminated intravascular coagulation) vs HELLP syndrome Resolved --Possible Eclampsia/HELLP Syndrome Resolved --s/p Cardiac arrest x2 on admission and on 10/07 ACLS protocol followed by revival Echo showed preserved Ef --Shock-resolved now awaiting placement s/p pressor support --ADOLPH-resolved Stable --Sepsis 2/2 UTI s/p cefepime to cover possible pseudomonas as sputum is also growing GN rods till 01/04/21 Previous urine culture grew pansensitive ecoli --Hypernatremia, resolved, cont free water with TF --DVT prophylaxis Patient presented with DIC No anticoagulants Overall prognosis extremely poor. Brief history 30 year old -Stateless female CHE 10/25/20 at 36w5d who presents with seizures in triage on 10/02/20. Pt was not able to provide history but per pt's , she presented to the hospital to return a 24 hour urine specimen for analysis. She then suddenly reported that she did not feel good. She was taken to labor and delivery and shortly after arrival, she began seizing. During this time, a code met was called because the patient became hypoxic. She was then noted to be without a pulse. Chest compressions were started immediately, and the patient was emergently taken to the operating room for delivery of the fetus. Off note, This patient has had care at [facility] with comanagement by [facility] since 11 wks complicated by ADHD, morbid obesity, generalized anxiety disorder, panic attacks, chronic narcotic use, fibromyalgia, GERD, Irritable Bowel Syndrome, Migraines, h/o endometrial ablation and ovarian vein embolization, genital herpes, insomnia, LGA fetus, nausea and vomiting, polyhydramnios, quad screen positive for Down's Syndrome, and previous x 3. She was GBS negative. Daily clinical course 10/02/21 11:30: Pt brought to L&D triage for evaluation of possible labor. Pt accompanied by her spouse. Pt spouse poor historian; unable to obtain history- allergies at this time. Pt taken from registration to triage area via . Pt unresponsive, actively seizing with snorous respirations. handbag parts cutter, Kassy, called and requesting assistance. 11:35: Multiple staff at bedside. Pt 02 sat 67% on nonrebreather, unable to read BP at this time. Yifan Theodore CRNA, at bedside for intubation and assistance with IV insertion. INT attempt by multiple RNs unsuccessful at this time. 11:42: Pt being bagged by KORIN, 02% 79%. No pulse palpated, compressions started at this time; bharati young called and Dr. Newberry preparing OR for emergent c/s. 11:44: Continued compressions on stretcher while transporting pt to OR 1. Pt being bagged with jaw thrust manuever in place by KORIN Stringer student. 11:45: Arrival to OR 1. Dr. Newberry and Dr. Portillo present for emergent c/s. Code team arrived for continued care. patient revived and c/s done Patient has been bleeding from C/s site followed by supracervical hysterectomy for severe bleeding Patient transfused multiple units of PRBC, Patient in DIC. Transferred to the ICU 10/03. Patient seen and examined at bedside this morning. Patient is nonresponsive and mechanically ventilated. On pressors. Labs reviewed-has leukocytosis, anemia, thrombocytopenia, ADOLPH and lactic acidosis. Started on IV antibiotics to cover possible sepsis secondary to DIC. Hematology oncology recommendations appreciated-needs additional cryoprecipitate and FFP. Monitor D-dimer, fibrinogen and frequent labs. Nephrology consulted for lactic acidosis and ADOLPH. 10/04. Remains mechanically ventilated. Kevin antibiotics. Labs shows improved acidosis - lactic acid 3.5. Hb drop noted. Getting transfused 2 units PRBCs. Platelet count is ~40k. Continue to monitor labs closely. Critical care team on board. 10/05; xray reviewed, concerning for multifocal infilrate, likely underlying Pneumonia, will add ID consult to assist with management of this critically ill patient, start tube feed, closely monitor renal system 10/06: Resumed care, remains on mechanical ventilation. No active bleeding, H&H stable. Continue to monitor CBC and BMP. Continue IV antibiotic for underlying pneumonia. Follow critical care and ID recommendation. 10/07: Remains on mechanical ventilation. No active bleeding, H&H stable. Critical care following, wean off ventilation as tolerated. 10/08: Patient had another cardiac arrest last night. Remains on mechanical ventilation, update family. Continue supportive care -poor prognosis 10/09: Called patient mother and discussed about patient care and management. Answered all question to best of my knowledge and family satisfaction. Patient remains on mechanical ventilation, cardiac arrest x2 so far. Critically sick, poor prognosis 10/10: remains on mechanical ventilation. h/h stable, no active bleeding. monitor CBC/BMP 10/11: WBC trended up with diarrhea, started on vancomycin po. remains on MV, off pressor, tolerating TF 10/12: remains on MV, off pressor, tolerating TF. called family for update but unable to reach, could not leave message as it was full. cont supportive care, wean off vent as tolerated. 10/13/2020; patient is on mechanical ventilation, tolerating tube feeding. Patient has labored breathing. Neuro was consulted and recommend MRI. Patient is on Precedex. Rectal tube in place. 10/14/2020; patient is on mechanical ventilation, Precedex. Patient had fever and blood culture ordered. Patient is on IV vancomycin per ID recommendation. Neuro consulted and recommend MRI. Continue to monitor. Prognosis is guarded. 10/15/2020; patient is on mechanical ventilation, Precedex. Patient had fever and blood culture ordered. Patient is on IV vancomycin per ID recommendation. Neuro consulted and recommend MRI. Continue to monitor. Prognosis is guarded. 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 12/06/20; anoxic brain injury. Awaiting placement. 12/07/2020; anoxic brain injury, awaiting placement. 12/09/2020; anoxic brain injury, awaiting placement. 12/10/2020; patient had episodes of fever overnight. CBC, BMP, blood culture, UA and chest x-ray ordered, will follow and manage accordingly. Urinalysis is suggestive of UTI and I put the patient on ceftriaxone, order urine culture. Chest x-ray is normal. 12/11/2020; patient is on ceftriaxone day 2 for UTI. We will continue to follow urine culture. 12/12/2020. Day #3 of Rocephin for UTI. We will continue for 2 more days while she is here. Present UTI. 12/13/2020. Day #4 of Rocephin for UTI. Patient remains on 50% with tracheostomy. Remains unresponsive with evidence of anoxic encephalopathy unable to make needs known. 12/14/2020. Day #5 of Rocephin for UTI completed today. Remains encephalopathic unable to make needs known. Remains on 50% unable to decrease oxygen via tracheostomy. Overall prognosis remains extremely poor. 12/15: Continue to monitor. Stop and monitor antibiotics at this time. Continue to wean oxygen as tolerated. Wean oxygen as tolerated. Case management working on placement. 12/16: Continue supportive care aspiration precautions. Awaiting placement discussion. Monitor fever curve. Prognosis remains poor no evidence of neurological recovery as of today 12/17: Continue supportive care, check labs and chest xray. Still monitor off antibiotics. Monitor Sodium level 12/18: Patient remains with intermittent low grade fever, reviewed EEG from September again, consistent for Ischemic Hypoxic Encephalopathy, patient with decorticating posturing type presentation. Will discuss with erosion control coordinator to optimize diet so we can discontinue D5. CXR with no abnormality. Discussed extensively with the nursing staff at bedside CXR IMPRESSION: 1. No acute findings. 12/19: No clinical change 12/20: No clinical change, now off abx, monitor, discussed her medications with our pharmacist I believe that her posture and rigidity is likely from underlying anoxic encephalopathy. Continue to monitor and await placement decision. Continue aggressive suctioning. Plan discussed in detail with the nursing staff 12/21: Continue supportive care. Will give 500 cc bolus of fluid today to replace insensible losses. Tachycardia appears to be improving. Blood pressure precludes adjusting cardiac meds. Still awaiting placement from case management. Plan discussed in detail with the nursing staff 12/22. Continue support supportive care. Tracheostomy and PEG in place. Remains nonresponsive. Awaiting placement. 12/23. Continue support supportive care. Tracheostomy and PEG in place. Remains nonresponsive. Awaiting placement. Remains tachycardic. Decrease dose of lasix. Will try low dose metoprolol. Monitor BP closely 12/24. Continue support supportive care. Tracheostomy and PEG in place. Remains nonresponsive. Awaiting placement. Heart rate slightly better. Continue to monitor BP closely 12/25. Continue support supportive care. Tracheostomy and PEG in place. Remains nonresponsive. Awaiting placement. 12/26. Continue support supportive care. Tracheostomy and PEG in place. Remains nonresponsive. Awaiting placement 12/27. Continue support supportive care. Tracheostomy and PEG in place. Remains nonresponsive. Awaiting placement 12/28. Had fever yesterday. Blood culture drawn. UA - UTI - started on antibiotics. Now tracheal aspirate is growing GN rods. 12/29: Continue IV antibiotics, continue supportive care. Since admission patient has shown minimal or no chance of neurological recovery. Need 24/ assistance. Currently on trach and PEG, nonverbal. Waiting on SNF placement. Discussed with director case today. 12/30: Continue IV antibiotics for UTI, continue supportive care. Pending placement 12/31: continue supportive care. continue supportive care. Pending placement 01/01: continue supportive care. Pending placement. cont Iv abx for UTI till 01/04 01/02: Continue supportive care, pending placement. Sodium level slightly elevated, will start hypotonic fluid. Continue antibiotics till 01/04 01/03; cont hypotonic fluid, increase free water with TF for hypernatremia, follow BMP. cont supportive care. pending placement. cont cefepime. recx blood 01/04: resolved hyponatremia, cont supportive care, pending placement. Last day of supplement today. 01/05: Continue supportive care, pending placement. Monitor H&H and fever curve off antibiotic. 01/06; monitor off abx, suction as needed, Continue supportive care, pending placement. Subjective Date of service: 01/06/21 Principal diagnosis: Eclampsia/HELLP Syndrome, ADOLPH, DIC; s/p , s/p supracervical hyst Interval history: Patient seen and examined. Medical records and medication list reviewed. No acute event overnight noted by the RN. H&H stable, vitals noted Discussed with RN at the bedside Objective - Exam Narrative Exam: vITAL SIGNS: Reviewed. GENERAL: Trach in place HEAD: No signs of head trauma. EYES: Pupils are equal. NECK: No adenopathy, no JVD. CHEST: Diminished breath sounds CARDIAC: normal S1 and S2, without murmurs, gallops, or rubs. ABDOMEN: Soft, non tender and non distended. No rebound or guarding, and no masses palpated. Bowel Sounds normal MUSCULOSKELETAL: No edema NEUROLOGIC EXAM: nonverbal SKIN: No obvious lesions - Constitutional Vitals: Vital Signs - 12hr 01/06/21 09:55 Pulse Rate 100 H Blood Pressure 120/86 - Labs CBC & Chem 7: 01/02/21 06:47 01/04/21 05:56 Labs: Abnormal lab results 01/06/21 Range/Units 05:37 POC Glucose 106 H (70-105) mg/dL HEART Score - HEART Score Age: < 45 Risk factors: 1-2 risk factors - Critical Actions Critical Actions: >7 pts:50-65% risk of adverse cardiac event. Early invasive measures
[2021-01-07] MEDS ORDERED: DEXTROSE 50% IN WATER (25GM) 50 ML SYRINGE IV ONE (08:44)
[2021-01-07] MEDS: FAMOTIDINE 20 MG TAB PO SCH ×2 (10:57→21:30)
[2021-01-07] MEDS: ENOXAPARIN 40 MG/0.4 ML INJ SUB-Q SCH (10:57)
[2021-01-07] MEDS: METOPROLOL TARTRATE 25 MG TAB PO SCH ×2 (10:58→21:30)
[2021-01-07] MEDS: FUROSEMIDE 20 MG TAB PO SCH (10:58)
[2021-01-07] MEDS: DEXTROSE 5% IN WATER 1,000 ML IV SCH (11:03)
--- NOTE | 2021-01-07 11:50 | Progress Note ---
Assessment and Plan --DIC (disseminated intravascular coagulation) vs HELLP syndrome Resolved --Possible Eclampsia/HELLP Syndrome Resolved --s/p Cardiac arrest x2 on admission and on 10/07 ACLS protocol followed by revival Echo showed preserved Ef --Shock-resolved now awaiting placement s/p pressor support --ADOLPH-resolved Stable --Sepsis 2/2 UTI s/p cefepime to cover possible pseudomonas as sputum is also growing GN rods till 01/04/21 Previous urine culture grew pansensitive ecoli --Hypernatremia, resolved, cont free water with TF --DVT prophylaxis Patient presented with DIC No anticoagulants Overall prognosis extremely poor. Brief history 30 year old -[place] female CHE 10/25/20 at 36w5d who presents with seizures in triage on 10/02/20. Pt was not able to provide history but per pt's , she presented to the hospital to return a 24 hour urine specimen for analysis. She then suddenly reported that she did not feel good. She was taken to labor and delivery and shortly after arrival, she began seizing. During this time, a code met was called because the patient became hypoxic. She was then noted to be without a pulse. Chest compressions were started immediately, and the patient was emergently taken to the operating room for delivery of the fetus. Off note, This patient has had care at [facility] with comanagement by [facility] since 11 wks complicated by ADHD, morbid obesity, generalized anxiety disorder, panic attacks, chronic narcotic use, fibromyalgia, GERD, Irritable Bowel Syndrome, Migraines, h/o endometrial ablation and ovarian vein embolization, genital herpes, insomnia, LGA fetus, nausea and vomiting, polyhydramnios, quad screen positive for Down's Syndrome, and previous x 3. She was GBS negative. Daily clinical course 10/02/21 11:30: Pt brought to L&D triage for evaluation of possible labor. Pt accompanied by her spouse. Pt spouse poor historian; unable to obtain history- allergies at this time. Pt taken from registration to triage area via . Pt unresponsive, actively seizing with snorous respirations. sweeper driver, Kassy, called and requesting assistance. 11:35: Multiple staff at bedside. Pt 02 sat 67% on nonrebreather, unable to read BP at this time. Yifan Theodore CRNA, at bedside for intubation and assistance with IV insertion. INT attempt by multiple RNs unsuccessful at this time. 11:42: Pt being bagged by KORIN, 02% 79%. No pulse palpated, compressions started at this time; bharati young called and Dr. Newberry preparing OR for emergent c/s. 11:44: Continued compressions on stretcher while transporting pt to OR 1. Pt being bagged with jaw thrust manuever in place by KORIN Stringer student. 11:45: Arrival to OR 1. Dr. Newberry and Dr. Portillo present for emergent c/s. Code team arrived for continued care. patient revived and c/s done Patient has been bleeding from C/s site followed by supracervical hysterectomy for severe bleeding Patient transfused multiple units of PRBC, Patient in DIC. Transferred to the ICU 10/03. Patient seen and examined at bedside this morning. Patient is nonresponsive and mechanically ventilated. On pressors. Labs reviewed-has leukocytosis, anemia, thrombocytopenia, ADOLPH and lactic acidosis. Started on IV antibiotics to cover possible sepsis secondary to DIC. Hematology oncology recommendations appreciated-needs additional cryoprecipitate and FFP. Monitor D-dimer, fibrinogen and frequent labs. Nephrology consulted for lactic acidosis and ADOLPH. 10/04. Remains mechanically ventilated. Kevin antibiotics. Labs shows improved acidosis - lactic acid 3.5. Hb drop noted. Getting transfused 2 units PRBCs. Platelet count is ~40k. Continue to monitor labs closely. Critical care team on board. 10/05; xray reviewed, concerning for multifocal infilrate, likely underlying Pneumonia, will add ID consult to assist with management of this critically ill patient, start tube feed, closely monitor renal system 10/06: Resumed care, remains on mechanical ventilation. No active bleeding, H&H stable. Continue to monitor CBC and BMP. Continue IV antibiotic for underlying pneumonia. Follow critical care and ID recommendation. 10/07: Remains on mechanical ventilation. No active bleeding, H&H stable. Critical care following, wean off ventilation as tolerated. 10/08: Patient had another cardiac arrest last night. Remains on mechanical ventilation, update family. Continue supportive care -poor prognosis 10/09: Called patient mother and discussed about patient care and management. Answered all question to best of my knowledge and family satisfaction. Patient remains on mechanical ventilation, cardiac arrest x2 so far. Critically sick, poor prognosis 10/10: remains on mechanical ventilation. h/h stable, no active bleeding. monitor CBC/BMP 10/11: WBC trended up with diarrhea, started on vancomycin po. remains on MV, off pressor, tolerating TF 10/12: remains on MV, off pressor, tolerating TF. called family for update but unable to reach, could not leave message as it was full. cont supportive care, wean off vent as tolerated. 10/13/2020; patient is on mechanical ventilation, tolerating tube feeding. Patient has labored breathing. Neuro was consulted and recommend MRI. Patient is on Precedex. Rectal tube in place. 10/14/2020; patient is on mechanical ventilation, Precedex. Patient had fever and blood culture ordered. Patient is on IV vancomycin per ID recommendation. Neuro consulted and recommend MRI. Continue to monitor. Prognosis is guarded. 10/15/2020; patient is on mechanical ventilation, Precedex. Patient had fever and blood culture ordered. Patient is on IV vancomycin per ID recommendation. Neuro consulted and recommend MRI. Continue to monitor. Prognosis is guarded. 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 12/06/20; anoxic brain injury. Awaiting placement. 12/07/2020; anoxic brain injury, awaiting placement. 12/09/2020; anoxic brain injury, awaiting placement. 12/10/2020; patient had episodes of fever overnight. CBC, BMP, blood culture, UA and chest x-ray ordered, will follow and manage accordingly. Urinalysis is suggestive of UTI and I put the patient on ceftriaxone, order urine culture. Chest x-ray is normal. 12/11/2020; patient is on ceftriaxone day 2 for UTI. We will continue to follow urine culture. 12/12/2020. Day #3 of Rocephin for UTI. We will continue for 2 more days while she is here. Present UTI. 12/13/2020. Day #4 of Rocephin for UTI. Patient remains on 50% with tracheostomy. Remains unresponsive with evidence of anoxic encephalopathy unable to make needs known. 12/14/2020. Day #5 of Rocephin for UTI completed today. Remains encephalopathic unable to make needs known. Remains on 50% unable to decrease oxygen via tracheostomy. Overall prognosis remains extremely poor. 12/15: Continue to monitor. Stop and monitor antibiotics at this time. Continue to wean oxygen as tolerated. Wean oxygen as tolerated. Case management working on placement. 12/16: Continue supportive care aspiration precautions. Awaiting placement discussion. Monitor fever curve. Prognosis remains poor no evidence of neurological recovery as of today 12/17: Continue supportive care, check labs and chest xray. Still monitor off antibiotics. Monitor Sodium level 12/18: Patient remains with intermittent low grade fever, reviewed EEG from September again, consistent for Ischemic Hypoxic Encephalopathy, patient with decorticating posturing type presentation. Will discuss with deputy coroner investigator to optimize diet so we can discontinue D5. CXR with no abnormality. Discussed extensively with the nursing staff at bedside CXR IMPRESSION: 1. No acute findings. 12/19: No clinical change 12/20: No clinical change, now off abx, monitor, discussed her medications with our pharmacist I believe that her posture and rigidity is likely from underlying anoxic encephalopathy. Continue to monitor and await placement decision. Continue aggressive suctioning. Plan discussed in detail with the nursing staff 12/21: Continue supportive care. Will give 500 cc bolus of fluid today to replace insensible losses. Tachycardia appears to be improving. Blood pressure precludes adjusting cardiac meds. Still awaiting placement from case management. Plan discussed in detail with the nursing staff 12/22. Continue support supportive care. Tracheostomy and PEG in place. Remains nonresponsive. Awaiting placement. 12/23. Continue support supportive care. Tracheostomy and PEG in place. Remains nonresponsive. Awaiting placement. Remains tachycardic. Decrease dose of lasix. Will try low dose metoprolol. Monitor BP closely 12/24. Continue support supportive care. Tracheostomy and PEG in place. Remains nonresponsive. Awaiting placement. Heart rate slightly better. Continue to monitor BP closely 12/25. Continue support supportive care. Tracheostomy and PEG in place. Remains nonresponsive. Awaiting placement. 12/26. Continue support supportive care. Tracheostomy and PEG in place. Remains nonresponsive. Awaiting placement 12/27. Continue support supportive care. Tracheostomy and PEG in place. Remains nonresponsive. Awaiting placement 12/28. Had fever yesterday. Blood culture drawn. UA - UTI - started on antibiotics. Now tracheal aspirate is growing GN rods. 12/29: Continue IV antibiotics, continue supportive care. Since admission patient has shown minimal or no chance of neurological recovery. Need 24/7 assistance. Currently on trach and PEG, nonverbal. Waiting on SNF placement. Discussed with case preparer and liner today. 12/30: Continue IV antibiotics for UTI, continue supportive care. Pending placement 12/31: continue supportive care. continue supportive care. Pending placement 01/01: continue supportive care. Pending placement. cont Iv abx for UTI till 01/04 01/02: Continue supportive care, pending placement. Sodium level slightly elevated, will start hypotonic fluid. Continue antibiotics till 01/04 01/03; cont hypotonic fluid, increase free water with TF for hypernatremia, follow BMP. cont supportive care. pending placement. cont cefepime. recx blood 01/04: resolved hyponatremia, cont supportive care, pending placement. Last day of supplement today. 01/05: Continue supportive care, pending placement. Monitor H&H and fever curve off antibiotic. 01/06; monitor off abx, suction as needed, Continue supportive care, pending placement. 01/07: Discharge pending on placement, vitals stable. Continue supportive care Subjective Date of service: 01/07/21 Principal diagnosis: Eclampsia/HELLP Syndrome, ADOLPH, DIC; s/p , s/p supracervical hyst Interval history: Patient seen and examined. Medical records and medication list reviewed. No acute event overnight noted by the RN. H&H stable, vitals noted Discussed with RN at the bedside Objective - Exam Narrative Exam: vITAL SIGNS: Reviewed. GENERAL: Trach in place HEAD: No signs of head trauma. EYES: Pupils are equal. NECK: No adenopathy, no JVD. CHEST: Diminished breath sounds CARDIAC: normal S1 and S2, without murmurs, gallops, or rubs. ABDOMEN: Soft, non tender and non distended. No rebound or guarding, and no masses palpated. Bowel Sounds normal MUSCULOSKELETAL: No edema NEUROLOGIC EXAM: nonverbal SKIN: No obvious lesions - Constitutional Vitals: Vital Signs - 12hr 01/07/21 01/07/21 05:10 09:40 Temperature 97.7 F Pulse Rate 99 H Respiratory 18 Rate Blood Pressure 105/66 O2 Sat by Pulse 98 100 Oximetry O2 Sat by Pulse 100 Oximetry [ Assessment] - Labs CBC & Chem 7: 03/20/21 06:47 01/04/21 05:56 Labs: Abnormal lab results 01/07/21 Range/Units 06:32 POC Glucose 115 H (70-105) mg/dL HEART Score - HEART Score Age: < 45 Risk factors: 1-2 risk factors - Critical Actions Critical Actions: >7 pts:50-65% risk of adverse cardiac event. Early invasive measures
[2021-01-08] MEDS: FUROSEMIDE 20 MG TAB PO SCH (10:44)
[2021-01-08] MEDS: ENOXAPARIN 40 MG/0.4 ML INJ SUB-Q SCH (10:44)
[2021-01-08] MEDS: METOPROLOL TARTRATE 25 MG TAB PO SCH ×2 (10:45→22:47)
[2021-01-08] MEDS: FAMOTIDINE 20 MG TAB PO SCH ×2 (10:46→22:47)
--- NOTE | 2021-01-08 12:55 | Progress Note ---
Assessment and Plan --DIC (disseminated intravascular coagulation) vs HELLP syndrome Resolved --Possible Eclampsia/HELLP Syndrome Resolved --s/p Cardiac arrest x2 on admission and on 10/07 ACLS protocol followed by revival Echo showed preserved Ef --Anoxic brain injury, Developed following cardiac arrest, continue supportive care --Shock-resolved now awaiting placement s/p pressor support --ADOLPH-resolved Stable --Sepsis 2/2 UTI s/p cefepime to cover possible pseudomonas as sputum is also growing GN rods till 01/04/21 Previous urine culture grew pansensitive ecoli --Hypernatremia, resolved, cont free water with TF --DVT prophylaxis Patient presented with DIC No anticoagulants Overall prognosis extremely poor. Brief history 30 year old -[place] female CHE 10/25/20 at 36w5d who presents with seizures in triage on 10/02/20. Pt was not able to provide history but per pt's , she presented to the hospital to return a 24 hour urine specimen for analysis. She then suddenly reported that she did not feel good. She was taken to labor and delivery and shortly after arrival, she began seizing. During this time, a code met was called because the patient became hypoxic. She was then noted to be without a pulse. Chest compressions were started immediately, and the patient was emergently taken to the operating room for delivery of the fetus. Off note, This patient has had care at [facility] with comanagement by [facility] since 11 wks complicated by ADHD, morbid obesity, generalized anxiety disorder, panic attacks, chronic narcotic use, fibromyalgia, GERD, Irritable Bowel Syndrome, Migraines, h/o endometrial ablation and ovarian vein embolization, genital herpes, insomnia, LGA fetus, nausea and vomiting, polyhydramnios, quad screen positive for Down's Syndrome, and previous x 3. She was GBS negative. Daily clinical course 10/02/21 11:30: Pt brought to L&D triage for evaluation of possible labor. Pt accompanied by her spouse. Pt spouse poor historian; unable to obtain history- allergies at this time. Pt taken from registration to triage area via WC. Pt unresponsive, actively seizing with snorous respirations. deployment specialistKassy, called and requesting assistance. 11:35: Multiple staff at bedside. Pt 02 sat 67% on nonrebreather, unable to read BP at this time. Yifan Theodore CRNA, at bedside for intubation and assistance with IV insertion. INT attempt by multiple RNs unsuccessful at this time. 11:42: Pt being bagged by KORIN, 02% 79%. No pulse palpated, compressions started at this time; bharati young called and Dr. Newberry preparing OR for emergent c/s. 11:44: Continued compressions on stretcher while transporting pt to OR 1. Pt being bagged with jaw thrust manuever in place by KORIN Stringer student. 11:45: Arrival to OR 1. Dr. Newberry and Dr. Portillo present for emergent c/s. Code team arrived for continued care. patient revived and c/s done Patient has been bleeding from C/s site followed by supracervical hysterectomy for severe bleeding Patient transfused multiple units of PRBC, Patient in DIC. Transferred to the ICU 10/03. Patient seen and examined at bedside this morning. Patient is nonresponsive and mechanically ventilated. On pressors. Labs reviewed-has leukocytosis, anemia, thrombocytopenia, ADOLPH and lactic acidosis. Started on IV antibiotics to cover possible sepsis secondary to DIC. Hematology oncology recommendations appreciated-needs additional cryoprecipitate and FFP. Monitor D-dimer, fibrinogen and frequent labs. Nephrology consulted for lactic acidosis and ADOLPH. 10/04. Remains mechanically ventilated. Mullens antibiotics. Labs shows improved acidosis - lactic acid 3.5. Hb drop noted. Getting transfused 2 units PRBCs. Platelet count is ~40k. Continue to monitor labs closely. Critical care team on board. 10/05; xray reviewed, concerning for multifocal infilrate, likely underlying Pn eumonia, will add ID consult to assist with management of this critically ill patient, start tube feed, closely monitor renal system 10/06: Resumed care, remains on mechanical ventilation. No active bleeding, H&H stable. Continue to monitor CBC and BMP. Continue IV antibiotic for underlying pneumonia. Follow critical care and ID recommendation. 10/07: Remains on mechanical ventilation. No active bleeding, H&H stable. Critical care following, wean off ventilation as tolerated. 10/08: Patient had another cardiac arrest last night. Remains on mechanical ventilation, update family. Continue supportive care -poor prognosis 10/09: Called patient mother and discussed about patient care and management. Answered all question to best of my knowledge and family satisfaction. Patient remains on mechanical ventilation, cardiac arrest x2 so far. Critically sick, poor prognosis 10/10: remains on mechanical ventilation. h/h stable, no active bleeding. monitor CBC/BMP 10/11: WBC trended up with diarrhea, started on vancomycin po. remains on MV, off pressor, tolerating TF 10/12: remains on MV, off pressor, tolerating TF. called family for update but unable to reach, could not leave message as it was full. cont supportive care, wean off vent as tolerated. 10/13/2020; patient is on mechanical ventilation, tolerating tube feeding. Patient has labored breathing. Neuro was consulted and recommend MRI. Patient is on Precedex. Rectal tube in place. 10/14/2020; patient is on mechanical ventilation, Precedex. Patient had fever and blood culture ordered. Patient is on IV vancomycin per ID recommendation. Neuro consulted and recommend MRI. Continue to monitor. Prognosis is guarded. 10/15/2020; patient is on mechanical ventilation, Precedex. Patient had fever and blood culture ordered. Patient is on IV vancomycin per ID recommendation. Neuro consulted and recommend MRI. Continue to monitor. Prognosis is guarded. 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 12/06/20; anoxic brain injury. Awaiting placement. 12/07/2020; anoxic brain injury, awaiting placement. 12/09/2020; anoxic brain injury, awaiting placement. 12/10/2020; patient had episodes of fever overnight. CBC, BMP, blood culture, UA and chest x-ray ordered, will follow and manage accordingly. Urinalysis is suggestive of UTI and I put the patient on ceftriaxone, order urine culture. Chest x-ray is normal. 12/11/2020; patient is on ceftriaxone day 2 for UTI. We will continue to follow urine culture. 12/12/2020. Day #3 of Rocephin for UTI. We will continue for 2 more days while she is here. Present UTI. 12/13/2020. Day #4 of Rocephin for UTI. Patient remains on 50% with tracheos serafin. Remains unresponsive with evidence of anoxic encephalopathy unable to make needs known. 12/14/2020. Day #5 of Rocephin for UTI completed today. Remains encephalopathic unable to make needs known. Remains on 50% unable to decrease oxygen via tracheostomy. Overall prognosis remains extremely poor. 12/15: Continue to monitor. Stop and monitor antibiotics at this time. Continue to wean oxygen as tolerated. Wean oxygen as tolerated. Case management working on placement. 12/16: Continue supportive care aspiration precautions. Awaiting placement discussion. Monitor fever curve. Prognosis remains poor no evidence of neurological recovery as of today 12/17: Continue supportive care, check labs and chest xray. Still monitor off antibiotics. Monitor Sodium level 12/18: Patient remains with intermittent low grade fever, reviewed EEG from September again, consistent for Ischemic Hypoxic Encephalopathy, patient with decorticating posturing type presentation. Will discuss with rough rib grader to op timize diet so we can discontinue D5. CXR with no abnormality. Discussed extensively with the nursing staff at bedside CXR IMPRESSION: 1. No acute findings. 12/19: No clinical change 12/20: No clinical change, now off abx, monitor, discussed her medications with our pharmacist I believe that her posture and rigidity is likely from underlying anoxic encephalopathy. Continue to monitor and await placement decision. Continue aggressive suctioning. Plan discussed in detail with the nursing staff 12/21: Continue supportive care. Will give 500 cc bolus of fluid today to replace insensible losses. Tachycardia appears to be improving. Blood pressure precludes adjusting cardiac meds. Still awaiting placement from case management. Plan discussed in detail with the nursing staff 12/22. Continue support supportive care. Tracheostomy and PEG in place. Remains nonresponsive. Awaiting placement. 12/23. Continue support supportive care. Tracheostomy and PEG in place. Remains nonresponsive. Awaiting placement. Remains tachycardic. Decrease dose of lasix. Will try low dose metoprolol. Monitor BP closely 12/24. Continue support supportive care. Tracheostomy and PEG in place. Remains nonresponsive. Awaiting placement. Heart rate slightly better. Continue to monitor BP closely 12/25. Continue support supportive care. Tracheostomy and PEG in place. Remains nonresponsive. Awaiting placement. 12/26. Continue support supportive care. Tracheostomy and PEG in place. Remains nonresponsive. Awaiting placement 12/27. Continue support supportive care. Tracheostomy and PEG in place. Remains nonresponsive. Awaiting placement 12/28. Had fever yesterday. Blood culture drawn. UA - UTI - started on antibiotics. Now tracheal aspirate is growing GN rods. 12/29: Continue IV antibiotics, continue supportive care. Since admission patient has shown minimal or no chance of neurological recovery. Need 24/7 assistance. Currently on trach and PEG, nonverbal. Waiting on SNF placement. Discussed with behavioral health case manager today. 12/30: Continue IV antibiotics for UTI, continue supportive care. Pending placement 12/31: continue supportive care. continue supportive care. Pending placement 01/01: continue supportive care. Pending placement. cont Iv abx for UTI till 01/04 01/02: Continue supportive care, pending placement. Sodium level slightly elevated, will start hypotonic fluid. Continue antibiotics till 01/04 01/03; cont hypotonic fluid, increase free water with TF for hypernatremia, follow BMP. cont supportive care. pending placement. cont cefepime. recx blood 01/04: resolved hyponatremia, cont supportive care, pending placement. Last day of supplement today. 01/05: Continue supportive care, pending placement. Monitor H&H and fever curve off antibiotic. 01/06; monitor off abx, suction as needed, Continue supportive care, pending placement. 01/07: Discharge pending on placement, vitals stable. Continue supportive care 01/08: Discharge pending on placement, vitals stable. Continue supportive care. stop lasix, increase metoprolol to 25mg BID for ST. Subjective Date of service: 01/08/21 Principal diagnosis: Eclampsia/HELLP Syndrome, ADOLPH, DIC; s/p , s/p supracervical hyst Interval history: Patient seen and examined. Medical records and medication list reviewed. No acute event overnight noted by the RN. H&H stable, vitals noted Discussed with RN at the bedside Objective - Exam Narrative Exam: vITAL SIGNS: Reviewed. GENERAL: Trach in place HEAD: No signs of head trauma. EYES: Pupils are equal. NECK: No adenopathy, no JVD. CHEST: Diminished breath sounds CARDIAC: normal S1 and S2, without murmurs, gallops, or rubs. ABDOMEN: Soft, non tender and non distended. No rebound or guarding, and no masses palpated. Bowel Sounds normal MUSCULOSKELETAL: No edema NEUROLOGIC EXAM: nonverbal SKIN: No obvious lesions - Constitutional Vitals: Vital Signs - 12hr 01/08/21 01/08/21 01/08/21 02:40 05:47 10:00 Temperature 97.3 F L Pulse Rate 102 H Pulse Rate [ 114 H From Monitor] Respiratory 20 Rate Blood Pressure 113/71 O2 Sat by Pulse 97 100 Oximetry O2 Sat by Pulse 99 Oximetry [ Assessment] 01/08/21 10:45 Temperature Pulse Rate 114 H Pulse Rate [ From Monitor] Respiratory Rate Blood Pressure 106/65 O2 Sat by Pulse Oximetry O2 Sat by Pulse Oximetry [ Assessment] - Labs CBC & Chem 7: 01/02/21 06:47 01/04/21 05:56 Labs: Abnormal lab results 01/08/21 Range/Units 06:02 POC Glucose 129 H (70-105) mg/dL HEART Score - HEART Score Age: < 45 Risk factors: 1-2 risk factors - Critical Actions Critical Actions: >7 pts:50-65% risk of adverse cardiac event. Early invasive measures
[2021-01-08] MEDS ORDERED: METOPROLOL TARTRATE 25 MG TAB PO NR (13:15)
[2021-01-08] MEDS: DEXTROSE 5% IN WATER 1,000 ML IV SCH (20:11)
[2021-01-08] MEDS: ACETAMINOPHEN 325 MG/10.15 ML ORAL LIQD UNIT DOSE FEEDTUBE PRN (23:01)
[2021-01-09 05:26] LABS: Basophils % (Auto) 0.4 % (0.0-1.8); Eosinophils # (Auto) 0.1 K/mm3 (0.0-0.4); Eosinophils % (Auto) 1.1 % (0.0-4.3); Hematocrit 39.7 % (30.3-42.9); Hemoglobin 12.9 gm/dl (10.1-14.3); Lymphocytes # (Auto) 2.2 K/mm3 (1.2-5.4); Lymphocytes % (Auto) 25.8 % (13.4-35.0); Mean Corpuscular HGB Conc 32 % (30-34); Mean Corpuscular Volume 76 fl (79-97); Monocytes # (Auto) 0.8 K/mm3 (0.0-0.8); Monocytes % (Auto) 9.7 % (0.0-7.3); Platelet Count 210 K/mm3 (140-440); Red Blood Count 5.22 M/mm3 (3.65-5.03); Red Cell Distribution Width 14.4 % (13.2-15.2)
[2021-01-09 05:31] LABS: Blood Urea Nitrogen 9 mg/dL (7-17); Calcium 9.4 mg/dL (8.4-10.2); Hemolysis Index 1
[2021-01-09 05:35] LABS: BUN/Creatinine Ratio 18
--- NOTE | 2021-01-09 10:52 | Progress Note ---
Subjective Date of service: 01/09/21 Principal diagnosis: Eclampsia/HELLP Syndrome, ADOLPH, DIC; s/p , s/p supracervical hyst Interval history: --DIC (disseminated intravascular coagulation) vs HELLP syndrome Resolved --Possible Eclampsia/HELLP Syndrome Resolved --s/p Cardiac arrest x2 on admission and on 10/07 ACLS protocol followed by revival Echo showed preserved Ef --Anoxic brain injury, Developed following cardiac arrest, continue supportive care --Shock-resolved now awaiting placement s/p pressor support --ADOLPH-resolved Stable --Sepsis 2/2 UTI s/p cefepime to cover possible pseudomonas as sputum is also growing GN rods till 01/04/21 Previous urine culture grew pansensitive ecoli Blood cultures from 12/27-no growth --Hypernatremia, resolved, cont free water with TF --DVT prophylaxis Patient presented with DIC No anticoagulants Overall prognosis extremely poor. Brief history 30 year old -[place] female CHE 10/25/20 at 36w5d who presents with seizures in triage on 10/02/20. Pt was not able to provide history but per pt's , she presented to the hospital to return a 24 hour urine specimen for analysis. She then suddenly reported that she did not feel good. She was taken to labor and delivery and shortly after arrival, she began seizing. During this time, a code met was called because the patient became hypoxic. She was then noted to be without a pulse. Chest compressions were started immediately, and the patient was emergently taken to the operating room for delivery of the fetus. Off note, This patient has had care at [facility] with comanagement by [facility] since 11 wks complicated by ADHD, morbid obesity, generalized anxiety disorder, panic attacks, chronic narcotic use, fibromyalgia, GERD, Irritable Bowel Syndrome, Migraines, h/o endometrial ablation and ovarian vein embolization, genital herpes, insomnia, LGA fetus, nausea and vomiting, polyhydramnios, quad screen positive for Down's Syndrome, and previous x 3. She was GBS negative. Daily clinical course 10/02/21 11:30: Pt brought to L&D triage for evaluation of possible labor. Pt accompanied by her spouse. Pt spouse poor historian; unable to obtain history- allergies at this time. Pt taken from registration to triage area via WC. Pt unresponsive, actively seizing with snorous respirations. business analytics director, Kassy, called and requesting assistance. 11:35: Multiple staff at bedside. Pt 02 sat 67% on nonrebreather, unable to read BP at this time. Yifan Theodore CRNA, at bedside for intubation and assistance with IV insertion. INT attempt by multiple RNs unsuccessful at this time. 11:42: Pt being bagged by KORIN, 02% 79%. No pulse palpated, compressions started at this time; bharati young called and Dr. Newberry preparing OR for emergent c/s. 11:44: Continued compressions on stretcher while transporting pt to OR 1. Pt being bagged with jaw thrust manuever in place by KORIN Stringer student. 11:45: Arrival to OR 1. Dr. Newberry and Dr. Portillo present for emergent c/s. Code team arrived for continued care. patient revived and c/s done Patient has been bleeding from C/s site followed by supracervical hysterectomy for severe bleeding Patient transfused multiple units of PRBC, Patient in DIC. Transferred to the ICU 10/03. Patient seen and examined at bedside this morning. Patient is nonresponsive and mechanically ventilated. On pressors. Labs reviewed-has leukocytosis, anemia, thrombocytopenia, ADOLPH and lactic acidosis. Started on IV antibiotics to cover possible sepsis secondary to DIC. Hematology oncology recommendations appreciated-needs additional cryoprecipitate and FFP. Monitor D-dimer, fibrinogen and frequent labs. Nephrology consulted for lactic acidosis and ADOLPH. 10/04. Remains mechanically ventilated. [place] antibiotics. Labs shows improved acidosis - lactic acid 3.5. Hb drop noted. Getting transfused 2 units PRBCs. Platelet count is ~40k. Continue to monitor labs closely. Critical care team on board. 10/05; xray reviewed, concerning for multifocal infilrate, likely underlying Pneumonia, will add ID consult to assist with management of this critically ill patient, start tube feed, closely monitor renal system 10/06: Resumed care, remains on mechanical ventilation. No active bleeding, H&H stable. Continue to monitor CBC and BMP. Continue IV antibiotic for underlying pneumonia. Follow critical care and ID recommendation. 10/07: Remains on mechanical ventilation. No active bleeding, H&H stable. Critical care following, wean off ventilation as tolerated. 10/08: Patient had another cardiac arrest last night. Remains on mechanical maxine tilation, update family. Continue supportive care -poor prognosis 10/09: Called patient mother and discussed about patient care and management. Answered all question to best of my knowledge and family satisfaction. Patient remains on mechanical ventilation, cardiac arrest x2 so far. Critically sick, poor prognosis 10/10: remains on mechanical ventilation. h/h stable, no active bleeding. alfredo tor CBC/BMP 10/11: WBC trended up with diarrhea, started on vancomycin po. remains on MV, off pressor, tolerating TF 10/12: remains on MV, off pressor, tolerating TF. called family for update but unable to reach, could not leave message as it was full. cont supportive care, wean off vent as tolerated. 10/13/2020; patient is on mechanical ventilation, tolerating tube feeding. Patient has labored breathing. Neuro was consulted and recommend MRI. Patient is on Precedex. Rectal tube in place. 10/14/2020; patient is on mechanical ventilation, Precedex. Patient had fever and blood culture ordered. Patient is on IV vancomycin per ID recommendation. Neuro consulted and recommend MRI. Continue to monitor. Prognosis is guarded. 10/15/2020; patient is on mechanical ventilation, Precedex. Patient had fever and blood culture ordered. Patient is on IV vancomycin per ID recommendation. Neuro consulted and recommend MRI. Continue to monitor. Prognosis is guarded. 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 12/06/20; anoxic brain injury. Awaiting placement. 12/07/2020; anoxic brain injury, awaiting placement. 12/09/2020; anoxic brain injury, awaiting placement. 12/10/2020; patient had episodes of fever overnight. CBC, BMP, blood culture, UA and chest x-ray ordered, will follow and manage accordingly. Urinalysis is suggestive of UTI and I put the patient on ceftriaxone, order urine culture. Chest x-ray is normal. 12/11/2020; patient is on ceftriaxone day 2 for UTI. We will continue to follow urine culture. 12/12/2020. Day #3 of Rocephin for UTI. We will continue for 2 more days while she is here. Present UTI. 12/13/2020. Day #4 of Rocephin for UTI. Patient remains on 50% with tracheostomy. Remains unresponsive with evidence of anoxic encephalopathy nikita ble to make needs known. 12/14/2020. Day #5 of Rocephin for UTI completed today. Remains encephalopathic unable to make needs known. Remains on 50% unable to decrease oxygen via tracheostomy. Overall prognosis remains extremely poor. 3: Continue to monitor. Stop and monitor antibiotics at this time. Continue to wean oxygen as tolerated. Wean oxygen as tolerated. Case management working on placement. 12/16: Continue supportive care aspiration precautions. Awaiting placement discussion. Monitor fever curve. Prognosis remains poor no evidence of neurological recovery as of today 12/17: Continue supportive care, check labs and chest xray. Still monitor off antibiotics. Monitor Sodium level 12/18: Patient remains with intermittent low grade fever, reviewed EEG from September again, consistent for Ischemic Hypoxic Encephalopathy, patient with decorticating posturing type presentation. Will discuss with beauty parlor cleaner to optimize diet so we can discontinue D5. CXR with no abnormality. Discussed extensively with the nursing staff at bedside CXR IMPRESSION: 1. No acute findings. 12/19: No clinical change 12/20: No clinical change, now off abx, monitor, discussed her medications with our pharmacist I believe that her posture and rigidity is likely from underlying anoxic encephalopathy. Continue to monitor and await placement decision. Continue aggressive suctioning. Plan discussed in detail with the nursing staff 12/21: Continue supportive care. Will give 500 cc bolus of fluid today to replace insensible losses. Tachycardia appears to be improving. Blood pressure precludes adjusting cardiac meds. Still awaiting placement from case management. Plan discussed in detail with the nursing staff 12/22. Continue support supportive care. Tracheostomy and PEG in place. Remains nonresponsive. Awaiting placement. 12/23. Continue support supportive care. Tracheostomy and PEG in place. Remains nonresponsive. Awaiting placement. Remains tachycardic. Decrease dose of lasix. Will try low dose metoprolol. Monitor BP closely 12/24. Continue support supportive care. Tracheostomy and PEG in place. Remains nonresponsive. Awaiting placement. Heart rate slightly better. Continue to monitor BP closely 12/25. Continue support supportive care. Tracheostomy and PEG in place. Remains nonresponsive. Awaiting placement. 12/26. Continue support supportive care. Tracheostomy and PEG in place. Remains nonresponsive. Awaiting placement 12/27. Continue support supportive care. Tracheostomy and PEG in place. Remains nonresponsive. Awaiting placement 12/28. Had fever yesterday. Blood culture drawn. UA - UTI - started on antibiotics. Now tracheal aspirate is growing GN rods. 12/29: Continue IV antibiotics, continue supportive care. Since admission patient has shown minimal or no chance of neurological recovery. Need 24/7 assistance. Currently on trach and PEG, nonverbal. Waiting on SNF placement. Discussed with machine adjuster leader case trim today. 12/30: Continue IV antibiotics for UTI, continue supportive care. Pending placement 12/31: continue supportive care. continue supportive care. Pending placement 01/01: continue supportive care. Pending placement. cont Iv abx for UTI till 01/04 01/02: Continue supportive care, pending placement. Sodium level slightly francisco vated, will start hypotonic fluid. Continue antibiotics till 01/04 01/03; cont hypotonic fluid, increase free water with TF for hypernatremia, follow BMP. cont supportive care. pending placement. cont cefepime. recx blood 01/04: resolved hyponatremia, cont supportive care, pending placement. Last day of supplement today. 01/05: Continue supportive care, pending placement. Monitor H&H and fever curve off antibiotic. 01/06; monitor off abx, suction as needed, Continue supportive care, pending p lacement. 01/07: Discharge pending on placement, vitals stable. Continue supportive care 01/08: Discharge pending on placement, vitals stable. Continue supportive care. stop lasix, increase metoprolol to 25mg BID for ST. 01/09 patient resting with eyes closed. Opens eyes to tactile stimulus, has a blink reflex, does not follow simple commands, has a T-collar / G-tube Lab results reviewed, low-grade fever, Narrative Exam: vITAL SIGNS: Reviewed. GENERAL: Trach in place HEAD: No signs of head trauma. EYES: Pupils are equal. NECK: No adenopathy, no JVD. CHEST: Diminished breath sounds CARDIAC: RRR ABDOMEN: Soft, non tender and non distended. No rebound or guarding, and no masses palpated. Bowel Sounds normal MUSCULOSKELETAL: No edema NEUROLOGIC EXAM: nonverbal SKIN: No obvious lesions Objective - Constitutional Vitals: Vital Signs - 12hr 01/09/21 01/09/21 02:00 06:23 Temperature 99.9 F H Pulse Rate 108 H Respiratory 20 Rate Blood Pressure 133/83 O2 Sat by Pulse 97 Oximetry O2 Sat by Pulse 100 Oximetry [ Assessment] - Labs CBC & Chem 7: 01/09/21 04:27 01/09/21 04:27 Labs: Abnormal lab results 01/08/21 01/09/21 01/09/21 Range/Units 06:02 04:27 04:27 RBC 5.22 H (3.65-5.03) M/mm3 MCV 76 L (79-97) fl MCH 25 L (28-32) pg [place] % (Auto) 9.7 H (0.0-7.3) % Creatinine 0.5 L (0.6-1.2) mg/dL POC Glucose 129 H (70-105) mg/dL HEART Score - HEART Score Age: < 45 Risk factors: 1-2 risk factors - Critical Actions Critical Actions: >7 pts:50-65% risk of adverse cardiac event. Early invasive measures
[2021-01-09] MEDS: ENOXAPARIN 40 MG/0.4 ML INJ SUB-Q SCH (11:48)
[2021-01-09] MEDS: METOPROLOL TARTRATE 25 MG TAB PO SCH ×2 (11:50→22:10)
[2021-01-09] MEDS: FAMOTIDINE 20 MG TAB PO SCH ×2 (11:50→22:11)
[2021-01-10] MEDS: DEXTROSE 5% IN WATER 1,000 ML IV SCH (05:36)
--- NOTE | 2021-01-10 10:46 | Progress Note ---
Subjective Date of service: 01/10/21 Principal diagnosis: Eclampsia/HELLP Syndrome, ADOLPH, DIC; s/p , s/p supracervical hyst Interval history: --DIC (disseminated intravascular coagulation) vs HELLP syndrome Resolved --Possible Eclampsia/HELLP Syndrome Resolved --s/p Cardiac arrest x2 on admission and on 10/07 ACLS protocol followed by revival Echo showed preserved Ef --Anoxic brain injury, Developed following cardiac arrest, continue supportive care --Shock-resolved now awaiting placement s/p pressor support --ADOLPH-resolved Stable --Sepsis 2/2 UTI s/p cefepime to cover possible pseudomonas as sputum is also growing GN rods till 01/04/21 Previous urine culture grew pansensitive ecoli Blood cultures from 12/27-no growth --Hypernatremia, resolved, cont free water with TF --DVT prophylaxis Patient presented with DIC No anticoagulants Overall prognosis extremely poor. Brief history 30 year old -Italian female CHE 10/25/20 at 36w5d who presents with seizures in triage on 10/02/20. Pt was not able to provide history but per pt's , she presented to the hospital to return a 24 hour urine specimen for analysis. She then suddenly reported that she did not feel good. She was taken to labor and delivery and shortly after arrival, she began seizing. During this time, a code met was called because the patient became hypoxic. She was then noted to be without a pulse. Chest compressions were started immediately, and the patient was emergently taken to the operating room for delivery of the fetus. Off note, This patient has had care at [facility] with comanagement by [facility] since 11 wks complicated by ADHD, morbid obesity, generalized anxiety disorder, panic attacks, chronic narcotic use, fibromyalgia, GERD, Irritable Bowel Syndrome, Migraines, h/o endometrial ablation and ovarian vein embolization, genital herpes, insomnia, LGA fetus, nausea and vomiting, polyhydramnios, quad screen positive for Down's Syndrome, and previous x 3. She was GBS negative. Daily clinical course 10/02/21 11:30: Pt brought to L&D triage for evaluation of possible labor. Pt accompanied by her spouse. Pt spouse poor historian; unable to obtain history- allergies at this time. Pt taken from registration to triage area via WC. Pt unresponsive, actively seizing with snorous respirations. numerical control machine machinist, Kassy, called and requesting assistance. 11:35: Multiple staff at bedside. Pt 02 sat 67% on nonrebreather, unable to read BP at this time. Yifan Theodore CRNA, at bedside for intubation and assistance with IV insertion. INT attempt by multiple RNs unsuccessful at this time. 11:42: Pt being bagged by KORIN, 02% 79%. No pulse palpated, compressions started at this time; bharati young called and Dr. Newberry preparing OR for emergent c/s. 11:44: Continued compressions on stretcher while transporting pt to OR 1. Pt being bagged with jaw thrust manuever in place by KORIN Stringer student. 11:45: Arrival to OR 1. Dr. Newberry and Dr. Portillo present for emergent c/s. Code team arrived for continued care. patient revived and c/s done Patient has been bleeding from C/s site followed by supracervical hysterectomy for severe bleeding Patient transfused multiple units of PRBC, Patient in DIC. Transferred to the ICU 10/03. Patient seen and examined at bedside this morning. Patient is nonresponsive and mechanically ventilated. On pressors. Labs reviewed-has leukocytosis, anemia, thrombocytopenia, ADOLPH and lactic acidosis. Started on IV antibiotics to cover possible sepsis secondary to DIC. Hematology oncology recommendations appreciated-needs additional cryoprecipitate and FFP. Monitor D-dimer, fibrinogen and frequent labs. Nephrology consulted for lactic acidosis and ADOLPH. 10/04. Remains mechanically ventilated. [facility] antibiotics. Labs shows improved acidosis - lactic acid 3.5. Hb drop noted. Getting transfused 2 units PRBCs. Platelet count is ~40k. Continue to monitor labs closely. Critical care team on board. 10/05; xray reviewed, concerning for multifocal infilrate, likely underlying Pneumonia, will add ID consult to assist with management of this critically ill patient, start tube feed, closely monitor renal system 10/06: Resumed care, remains on mechanical ventilation. No active bleeding, H&H stable. Continue to monitor CBC and BMP. Continue IV antibiotic for underlying pneumonia. Follow critical care and ID recommendation. 10/07: Remains on mechanical ventilation. No active bleeding, H&H stable. Critical care following, wean off ventilation as tolerated. 10/08: Patient had another cardiac arrest last night. Remains on mechanical maxine tilation, update family. Continue supportive care -poor prognosis 10/09: Called patient mother and discussed about patient care and management. Answered all question to best of my knowledge and family satisfaction. Patient remains on mechanical ventilation, cardiac arrest x2 so far. Critically sick, poor prognosis 10/10: remains on mechanical ventilation. h/h stable, no active bleeding. alfredo tor CBC/BMP 10/11: WBC trended up with diarrhea, started on vancomycin po. remains on MV, off pressor, tolerating TF 10/12: remains on MV, off pressor, tolerating TF. called family for update but unable to reach, could not leave message as it was full. cont supportive care, wean off vent as tolerated. 10/13/2020; patient is on mechanical ventilation, tolerating tube feeding. Patient has labored breathing. Neuro was consulted and recommend MRI. Patient is on Precedex. Rectal tube in place. 10/14/2020; patient is on mechanical ventilation, Precedex. Patient had fever and blood culture ordered. Patient is on IV vancomycin per ID recommendation. Neuro consulted and recommend MRI. Continue to monitor. Prognosis is guarded. 10/15/2020; patient is on mechanical ventilation, Precedex. Patient had fever and blood culture ordered. Patient is on IV vancomycin per ID recommendation. Neuro consulted and recommend MRI. Continue to monitor. Prognosis is guarded. 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 12/06/20; anoxic brain injury. Awaiting placement. 12/07/2020; anoxic brain injury, awaiting placement. 12/09/2020; anoxic brain injury, awaiting placement. 12/10/2020; patient had episodes of fever overnight. CBC, BMP, blood culture, UA and chest x-ray ordered, will follow and manage accordingly. Urinalysis is suggestive of UTI and I put the patient on ceftriaxone, order urine culture. Chest x-ray is normal. 12/11/2020; patient is on ceftriaxone day 2 for UTI. We will continue to follow urine culture. 12/12/2020. Day #3 of Rocephin for UTI. We will continue for 2 more days while she is here. Present UTI. 12/13/2020. Day #4 of Rocephin for UTI. Patient remains on 50% with tracheostomy. Remains unresponsive with evidence of anoxic encephalopathy nikita ble to make needs known. 12/14/2020. Day #5 of Rocephin for UTI completed today. Remains encephalopathic unable to make needs known. Remains on 50% unable to decrease oxygen via tracheostomy. Overall prognosis remains extremely poor. 3: Continue to monitor. Stop and monitor antibiotics at this time. Continue to wean oxygen as tolerated. Wean oxygen as tolerated. Case management working on placement. 12/16: Continue supportive care aspiration precautions. Awaiting placement discussion. Monitor fever curve. Prognosis remains poor no evidence of neurological recovery as of today 12/17: Continue supportive care, check labs and chest xray. Still monitor off antibiotics. Monitor Sodium level 12/18: Patient remains with intermittent low grade fever, reviewed EEG from September again, consistent for Ischemic Hypoxic Encephalopathy, patient with decorticating posturing type presentation. Will discuss with soil and plant scientist to optimize diet so we can discontinue D5. CXR with no abnormality. Discussed extensively with the nursing staff at bedside CXR IMPRESSION: 1. No acute findings. 12/19: No clinical change 12/20: No clinical change, now off abx, monitor, discussed her medications with our pharmacist I believe that her posture and rigidity is likely from underlying anoxic encephalopathy. Continue to monitor and await placement decision. Continue aggressive suctioning. Plan discussed in detail with the nursing staff 12/21: Continue supportive care. Will give 500 cc bolus of fluid today to replace insensible losses. Tachycardia appears to be improving. Blood pressure precludes adjusting cardiac meds. Still awaiting placement from case management. Plan discussed in detail with the nursing staff 12/22. Continue support supportive care. Tracheostomy and PEG in place. Remains nonresponsive. Awaiting placement. 12/23. Continue support supportive care. Tracheostomy and PEG in place. Remains nonresponsive. Awaiting placement. Remains tachycardic. Decrease dose of lasix. Will try low dose metoprolol. Monitor BP closely 12/24. Continue support supportive care. Tracheostomy and PEG in place. Remains nonresponsive. Awaiting placement. Heart rate slightly better. Continue to monitor BP closely 12/25. Continue support supportive care. Tracheostomy and PEG in place. Remains nonresponsive. Awaiting placement. 12/26. Continue support supportive care. Tracheostomy and PEG in place. Remains nonresponsive. Awaiting placement 12/27. Continue support supportive care. Tracheostomy and PEG in place. Remains nonresponsive. Awaiting placement 12/28. Had fever yesterday. Blood culture drawn. UA - UTI - started on antibiotics. Now tracheal aspirate is growing GN rods. 12/29: Continue IV antibiotics, continue supportive care. Since admission patient has shown minimal or no chance of neurological recovery. Need 24/7 assistance. Currently on trach and PEG, nonverbal. Waiting on SNF placement. Discussed with continuous pillowcase cutter today. 12/30: Continue IV antibiotics for UTI, continue supportive care. Pending placement 12/31: continue supportive care. continue supportive care. Pending placement 01/01: continue supportive care. Pending placement. cont Iv abx for UTI till 01/04 01/02: Continue supportive care, pending placement. Sodium level slightly francisco vated, will start hypotonic fluid. Continue antibiotics till 01/04 01/03; cont hypotonic fluid, increase free water with TF for hypernatremia, follow BMP. cont supportive care. pending placement. cont cefepime. recx blood 01/04: resolved hyponatremia, cont supportive care, pending placement. Last day of supplement today. 01/05: Continue supportive care, pending placement. Monitor H&H and fever curve off antibiotic. 01/06; monitor off abx, suction as needed, Continue supportive care, pending p lacement. 01/07: Discharge pending on placement, vitals stable. Continue supportive care 01/08: Discharge pending on placement, vitals stable. Continue supportive care. stop lasix, increase metoprolol to 25mg BID for ST. 01/09 patient resting with eyes closed. Opens eyes to tactile stimulus, has a blink reflex, does not follow simple commands, has a T-collar / G-tube Lab results reviewed, low-grade fever, 01/10 Eyes open, does not follow simple commands, no acute events overnight Narrative Exam: vITAL SIGNS: Reviewed. GENERAL: Trach in place HEAD: No signs of head trauma. EYES: Pupils are equal. NECK: No adenopathy, no JVD. CHEST: Diminished breath sounds CARDIAC: RRR ABDOMEN: Soft, non tender and non distended. No rebound or guarding, and no masses palpated. Bowel Sounds normal MUSCULOSKELETAL: No edema NEUROLOGIC EXAM: nonverbal SKIN: No obvious lesions Objective - Constitutional Vitals: Vital Signs - 12hr 01/09/21 23:07 Temperature 98.8 F Pulse Rate 102 H Respiratory 20 Rate Blood Pressure 105/61 O2 Sat by Pulse 97 Oximetry - Labs CBC & Chem 7: 01/09/21 04:27 01/09/21 04:27 Labs: Abnormal lab results 01/09/21 Range/Units 16:14 POC Glucose 111 H (70-105) mg/dL HEART Score - HEART Score Age: < 45 Risk factors: 1-2 risk factors - Critical Actions Critical Actions: >7 pts:50-65% risk of adverse cardiac event. Early invasive measures
[2021-01-10] MEDS: METOPROLOL TARTRATE 25 MG TAB PO SCH ×2 (10:52→22:48)
[2021-01-10] MEDS: FAMOTIDINE 20 MG TAB PO SCH ×2 (10:52→22:49)
[2021-01-10] MEDS: ENOXAPARIN 40 MG/0.4 ML INJ SUB-Q SCH (10:52)
[2021-01-10] MEDS: ACETAMINOPHEN 325 MG/10.15 ML ORAL LIQD UNIT DOSE FEEDTUBE PRN (22:48)
[2021-01-11] MEDS: ENOXAPARIN 40 MG/0.4 ML INJ SUB-Q SCH (11:48)
[2021-01-11] MEDS: METOPROLOL TARTRATE 25 MG TAB PO SCH ×2 (11:48→23:11)
[2021-01-11] MEDS: FAMOTIDINE 20 MG TAB PO SCH ×2 (11:49→23:11)
--- NOTE | 2021-01-11 13:37 | Progress Note ---
Subjective Date of service: 01/11/21 Principal diagnosis: Eclampsia/HELLP Syndrome, ADOLPH, DIC; s/p , s/p supracervical hyst Interval history: --DIC (disseminated intravascular coagulation) vs HELLP syndrome Resolved --Possible Eclampsia/HELLP Syndrome Resolved --s/p Cardiac arrest x2 on admission and on 10/07 ACLS protocol followed by revival Echo showed preserved Ef --Anoxic brain injury, Developed following cardiac arrest, continue supportive care --Shock-resolved now awaiting placement s/p pressor support --ADOLPH-resolved Stable --Sepsis 2/2 UTI s/p cefepime to cover possible pseudomonas as sputum is also growing GN rods till 01/04/21 Previous urine culture grew pansensitive ecoli Blood cultures from 12/27-no growth --Hypernatremia, resolved, cont free water with TF --DVT prophylaxis Patient presented with DIC No anticoagulants Overall prognosis extremely poor. Brief history 30 year old -Nepalese female CHE 10/25/20 at 36w5d who presents with seizures in triage on 10/02/20. Pt was not able to provide history but per pt's , she presented to the hospital to return a 24 hour urine specimen for analysis. She then suddenly reported that she did not feel good. She was taken to labor and delivery and shortly after arrival, she began seizing. During this time, a code met was called because the patient became hypoxic. She was then noted to be without a pulse. Chest compressions were started immediately, and the patient was emergently taken to the operating room for delivery of the fetus. Off note, This patient has had care at [facility] with comanagement by [facility] since 11 wks complicated by ADHD, morbid obesity, generalized anxiety disorder, panic attacks, chronic narcotic use, fibromyalgia, GERD, Irritable Bowel Syndrome, Migraines, h/o endometrial ablation and ovarian vein embolization, genital herpes, insomnia, LGA fetus, nausea and vomiting, polyhydramnios, quad screen positive for Down's Syndrome, and previous x 3. She was GBS negative. Daily clinical course 10/02/21 11:30: Pt brought to L&D triage for evaluation of possible labor. Pt accompanied by her spouse. Pt spouse poor historian; unable to obtain history- allergies at this time. Pt taken from registration to triage area via WC. Pt unresponsive, actively seizing with snorous respirations. crime scene photographer, Kassy, called and requesting assistance. 11:35: Multiple staff at bedside. Pt 02 sat 67% on nonrebreather, unable to read BP at this time. Yifan Theodore CRNA, at bedside for intubation and assistance with IV insertion. INT attempt by multiple RNs unsuccessful at this time. 11:42: Pt being bagged by KORIN, 02% 79%. No pulse palpated, compressions started at this time; bharati young called and Dr. Newberry preparing OR for emergent c/s. 11:44: Continued compressions on stretcher while transporting pt to OR 1. Pt being bagged with jaw thrust manuever in place by KORIN Stringer student. 11:45: Arrival to OR 1. Dr. Newberry and Dr. Portillo present for emergent c/s. Code team arrived for continued care. patient revived and c/s done Patient has been bleeding from C/s site followed by supracervical hysterectomy for severe bleeding Patient transfused multiple units of PRBC, Patient in DIC. Transferred to the ICU 10/03. Patient seen and examined at bedside this morning. Patient is nonresponsive and mechanically ventilated. On pressors. Labs reviewed-has leukocytosis, anemia, thrombocytopenia, ADOLPH and lactic acidosis. Started on IV antibiotics to cover possible sepsis secondary to DIC. Hematology oncology recommendations appreciated-needs additional cryoprecipitate and FFP. Monitor D-dimer, fibrinogen and frequent labs. Nephrology consulted for lactic acidosis and ADOLPH. 10/04. Remains mechanically ventilated. [place] antibiotics. Labs shows improved acidosis - lactic acid 3.5. Hb drop noted. Getting transfused 2 units PRBCs. Platelet count is ~40k. Continue to monitor labs closely. Critical care team on board. 10/05; xray reviewed, concerning for multifocal infilrate, likely underlying Pneumonia, will add ID consult to assist with management of this critically ill patient, start tube feed, closely monitor renal system 10/06: Resumed care, remains on mechanical ventilation. No active bleeding, H&H stable. Continue to monitor CBC and BMP. Continue IV antibiotic for underlying pneumonia. Follow critical care and ID recommendation. 10/07: Remains on mechanical ventilation. No active bleeding, H&H stable. Critical care following, wean off ventilation as tolerated. 10/08: Patient had another cardiac arrest last night. Remains on mechanical maxine tilation, update family. Continue supportive care -poor prognosis 10/09: Called patient mother and discussed about patient care and management. Answered all question to best of my knowledge and family satisfaction. Patient remains on mechanical ventilation, cardiac arrest x2 so far. Critically sick, poor prognosis 10/10: remains on mechanical ventilation. h/h stable, no active bleeding. alfredo tor CBC/BMP 10/11: WBC trended up with diarrhea, started on vancomycin po. remains on MV, off pressor, tolerating TF 10/12: remains on MV, off pressor, tolerating TF. called family for update but unable to reach, could not leave message as it was full. cont supportive care, wean off vent as tolerated. 10/13/2020; patient is on mechanical ventilation, tolerating tube feeding. Patient has labored breathing. Neuro was consulted and recommend MRI. Patient is on Precedex. Rectal tube in place. 10/14/2020; patient is on mechanical ventilation, Precedex. Patient had fever and blood culture ordered. Patient is on IV vancomycin per ID recommendation. Neuro consulted and recommend MRI. Continue to monitor. Prognosis is guarded. 10/15/2020; patient is on mechanical ventilation, Precedex. Patient had fever and blood culture ordered. Patient is on IV vancomycin per ID recommendation. Neuro consulted and recommend MRI. Continue to monitor. Prognosis is guarded. 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 12/06/20; anoxic brain injury. Awaiting placement. 12/07/2020; anoxic brain injury, awaiting placement. 12/09/2020; anoxic brain injury, awaiting placement. 12/10/2020; patient had episodes of fever overnight. CBC, BMP, blood culture, UA and chest x-ray ordered, will follow and manage accordingly. Urinalysis is suggestive of UTI and I put the patient on ceftriaxone, order urine culture. Chest x-ray is normal. 12/11/2020; patient is on ceftriaxone day 2 for UTI. We will continue to follow urine culture. 12/12/2020. Day #3 of Rocephin for UTI. We will continue for 2 more days while she is here. Present UTI. 12/13/2020. Day #4 of Rocephin for UTI. Patient remains on 50% with tracheostomy. Remains unresponsive with evidence of anoxic encephalopathy nikita ble to make needs known. 12/14/2020. Day #5 of Rocephin for UTI completed today. Remains encephalopathic unable to make needs known. Remains on 50% unable to decrease oxygen via tracheostomy. Overall prognosis remains extremely poor. 3: Continue to monitor. Stop and monitor antibiotics at this time. Continue to wean oxygen as tolerated. Wean oxygen as tolerated. Case management working on placement. 12/16: Continue supportive care aspiration precautions. Awaiting placement discussion. Monitor fever curve. Prognosis remains poor no evidence of neurological recovery as of today 12/17: Continue supportive care, check labs and chest xray. Still monitor off antibiotics. Monitor Sodium level 12/18: Patient remains with intermittent low grade fever, reviewed EEG from September again, consistent for Ischemic Hypoxic Encephalopathy, patient with decorticating posturing type presentation. Will discuss with fish and game club manager to optimize diet so we can discontinue D5. CXR with no abnormality. Discussed extensively with the nursing staff at bedside CXR IMPRESSION: 1. No acute findings. 12/19: No clinical change 12/20: No clinical change, now off abx, monitor, discussed her medications with our pharmacist I believe that her posture and rigidity is likely from underlying anoxic encephalopathy. Continue to monitor and await placement decision. Continue aggressive suctioning. Plan discussed in detail with the nursing staff 12/21: Continue supportive care. Will give 500 cc bolus of fluid today to replace insensible losses. Tachycardia appears to be improving. Blood pressure precludes adjusting cardiac meds. Still awaiting placement from case management. Plan discussed in detail with the nursing staff 12/22. Continue support supportive care. Tracheostomy and PEG in place. Remains nonresponsive. Awaiting placement. 12/23. Continue support supportive care. Tracheostomy and PEG in place. Remains nonresponsive. Awaiting placement. Remains tachycardic. Decrease dose of lasix. Will try low dose metoprolol. Monitor BP closely 12/24. Continue support supportive care. Tracheostomy and PEG in place. Remains nonresponsive. Awaiting placement. Heart rate slightly better. Continue to monitor BP closely 12/25. Continue support supportive care. Tracheostomy and PEG in place. Remains nonresponsive. Awaiting placement. 12/26. Continue support supportive care. Tracheostomy and PEG in place. Remains nonresponsive. Awaiting placement 12/27. Continue support supportive care. Tracheostomy and PEG in place. Remains nonresponsive. Awaiting placement 12/28. Had fever yesterday. Blood culture drawn. UA - UTI - started on antibiotics. Now tracheal aspirate is growing GN rods. 12/29: Continue IV antibiotics, continue supportive care. Since admission patient has shown minimal or no chance of neurological recovery. Need 24/7 assistance. Currently on trach and PEG, nonverbal. Waiting on SNF placement. Discussed with rn case management today. 12/30: Continue IV antibiotics for UTI, continue supportive care. Pending placement 12/31: continue supportive care. continue supportive care. Pending placement 01/01: continue supportive care. Pending placement. cont Iv abx for UTI till 01/04 01/02: Continue supportive care, pending placement. Sodium level slightly francisco vated, will start hypotonic fluid. Continue antibiotics till 01/04 01/03; cont hypotonic fluid, increase free water with TF for hypernatremia, follow BMP. cont supportive care. pending placement. cont cefepime. recx blood 01/04: resolved hyponatremia, cont supportive care, pending placement. Last day of supplement today. 01/05: Continue supportive care, pending placement. Monitor H&H and fever curve off antibiotic. 01/06; monitor off abx, suction as needed, Continue supportive care, pending p lacement. 01/07: Discharge pending on placement, vitals stable. Continue supportive care 01/08: Discharge pending on placement, vitals stable. Continue supportive care. stop lasix, increase metoprolol to 25mg BID for ST. 01/09 patient resting with eyes closed. Opens eyes to tactile stimulus, has a blink reflex, does not follow simple commands, has a T-collar / G-tube Lab results reviewed, low-grade fever, 01/10 Eyes open, does not follow simple commands, no acute events overnight 01/11 no acute events overnight Waiting for placement Narrative Exam: vITAL SIGNS: Reviewed. GENERAL: Trach in place HEAD: No signs of head trauma. EYES: Pupils are equal. NECK: No adenopathy, no JVD. CHEST: Diminished breath sounds CARDIAC: RRR ABDOMEN: Soft, non tender and non distended. MUSCULOSKELETAL: No edema NEUROLOGIC EXAM: nonverbal, unresponsive and does not follow simple commands SKIN: No obvious lesions Objective - Constitutional Vitals: Vital Signs - 12hr 01/11/21 01/11/21 01/11/21 04:30 09:40 10:00 Temperature Pulse Rate Blood Pressure [Left] O2 Sat by Pulse 98 Oximetry O2 Sat by Pulse 100 98 Oximetry [ Assessment] 01/11/21 11:09 Temperature 98.9 F Pulse Rate 105 H Blood Pressure 117/78 [Left] O2 Sat by Pulse 98 Oximetry O2 Sat by Pulse Oximetry [ Assessment] - Labs CBC & Chem 7: 01/09/21 04:27 01/09/21 04:27 HEART Score - HEART Score Age: < 45 Risk factors: 1-2 risk factors - Critical Actions Critical Actions: >7 pts:50-65% risk of adverse cardiac event. Early invasive measures
--- NOTE | 2021-01-12 09:31 | Progress Note ---
Assessment and Plan Assessment and plan: --DIC (disseminated intravascular coagulation) vs HELLP syndrome Resolved --Possible Eclampsia/HELLP Syndrome Resolved --s/p Cardiac arrest x2 on admission and on 10/07 ACLS protocol followed by revival Echo showed preserved Ef --Anoxic brain injury, Developed following cardiac arrest, continue supportive care --Shock-resolved now awaiting placement s/p pressor support --ADOLPH-resolved Stable --Sepsis 2/2 UTI s/p cefepime to cover possible pseudomonas as sputum is also growing GN rods till 01/04/21 Previous urine culture grew pansensitive ecoli Blood cultures from 12/27-no growth --Hypernatremia, resolved, cont free water with TF --DVT prophylaxis Patient presented with DIC No anticoagulants Overall prognosis extremely poor. Daily clinical course 10/02/21 11:30: Pt brought to L&D triage for evaluation of possible labor. Pt accompanied by her spouse. Pt spouse poor historian; unable to obtain history- allergies at this time. Pt taken from registration to triage area via WC. Pt unresponsive, actively seizing with snorous respirations. chef de cuisine, Kassy, called and requesting assistance. 11:35: Multiple staff at bedside. Pt 02 sat 67% on nonrebreather, unable to read BP at this time. Yifan Theodore CRNA, at bedside for intubation and assistance with IV insertion. INT attempt by multiple RNs unsuccessful at this time. 11:42: Pt being bagged by KORIN, 02% 79%. No pulse palpated, compressions started at this time; bharati young called and Dr. Newberry preparing OR for emergent c/s. 11:44: Continued compressions on stretcher while transporting pt to OR 1. Pt being bagged with jaw thrust manuever in place by KORIN Stringer student. 11:45: Arrival to OR 1. Dr. Newberry and Dr. Portillo present for emergent c/s. Code team arrived for continued care. patient revived and c/s done Patient has been bleeding from C/s site followed by supracervical hysterectomy for severe bleeding Patient transfused multiple units of PRBC, Patient in DIC. Transferred to the [facility] 10/03. Patient seen and examined at bedside this morning. Patient is nonresponsive and mechanically ventilated. On pressors. Labs reviewed-has leukocytosis, anemia, thrombocytopenia, ADOLPH and lactic acidosis. Started on IV antibiotics to cover possible sepsis secondary to DIC. Hematology oncology recommendations appreciated-needs additional cryoprecipitate and FFP. Monitor D-dimer, fibrinogen and frequent labs. Nephrology consulted for lactic acidosis and ADOLPH. 10/04. Remains mechanically ventilated. [place] antibiotics. Labs shows improved acidosis - lactic acid 3.5. Hb drop noted. Getting transfused 2 units PRBCs. Platelet count is ~40k. Continue to monitor labs closely. Critical care team on board. 10/05; xray reviewed, concerning for multifocal infilrate, likely underlying [place], will add ID consult to assist with management of this critically ill patient, start tube feed, closely monitor renal system 10/06: Resumed care, remains on mechanical ventilation. No active bleeding, H&H stable. Continue to monitor CBC and BMP. Continue IV antibiotic for underlying pneumonia. Follow critical care and ID recommendation. 10/07: Remains on mechanical ventilation. No active bleeding, H&H stable. Critical care following, wean off ventilation as tolerated. 10/08: Patient had another cardiac arrest last night. Remains on mechanical ventilation, update family. Continue supportive care -poor prognosis 10/09: Called patient mother and discussed about patient care and management. Answered all question to best of my knowledge and family satisfaction. Patient remains on mechanical ventilation, cardiac arrest x2 so far. Critically sick, poor prognosis 10/10: remains on mechanical ventilation. h/h stable, no active bleeding. monitor CBC/BMP 10/11: WBC trended up with diarrhea, started on vancomycin po. remains on MV, off pressor, tolerating TF 10/12: remains on MV, off pressor, tolerating TF. called family for update but unable to reach, could not leave message as it was full. cont supportive care, wean off vent as tolerated. 10/13/2020; patient is on mechanical ventilation, tolerating tube feeding. Patient has labored breathing. Neuro was consulted and recommend MRI. Patient is on Precedex. Rectal tube in place. 10/14/2020; patient is on mechanical ventilation, Precedex. Patient had fever and blood culture ordered. Patient is on IV vancomycin per ID recommendation. Neuro consulted and recommend MRI. Continue to monitor. Prognosis is guarded. 10/15/2020; patient is on mechanical ventilation, Precedex. Patient had fever and blood culture ordered. Patient is on IV vancomycin per ID recommendation. Neuro consulted and recommend MRI. Continue to monitor. Prognosis is guarded. 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 12/06/20; anoxic brain injury. Awaiting placement. 12/07/2020; anoxic brain injury, awaiting placement. 12/09/2020; anoxic brain injury, awaiting placement. 12/10/2020; patient had episodes of fever overnight. CBC, BMP, blood culture, UA and chest x-ray ordered, will follow and manage accordingly. Urinalysis is suggestive of UTI and I put the patient on ceftriaxone, order urine culture. Chest x-ray is normal. 12/11/2020; patient is on ceftriaxone day 2 for UTI. We will continue to follow urine culture. 12/12/2020. Day #3 of Rocephin for UTI. We will continue for 2 more days while she is here. Present UTI. 12/13/2020. Day #4 of Rocephin for UTI. Patient remains on 50% with tracheost jayne. Remains unresponsive with evidence of anoxic encephalopathy unable to make needs known. 12/14/2020. Day #5 of Rocephin for UTI completed today. Remains encephalopathic unable to make needs known. Remains on 50% unable to decrease oxygen via tracheostomy. Overall prognosis remains extremely poor. 3: Continue to monitor. Stop and monitor antibiotics at this time. Continue to wean oxygen as tolerated. Wean oxygen as tolerated. Case management working on placement. 12/16: Continue supportive care aspiration precautions. Awaiting placement discussion. Monitor fever curve. Prognosis remains poor no evidence of neurological recovery as of today 3: Continue supportive care, check labs and chest xray. Still monitor off antibiotics. Monitor Sodium level 12/18: Patient remains with intermittent low grade fever, reviewed EEG from September again, consistent for Ischemic Hypoxic Encephalopathy, patient with decorticating posturing type presentation. Will discuss with blog writer to opt imize diet so we can discontinue D5. CXR with no abnormality. Discussed extensively with the nursing staff at bedside CXR IMPRESSION: 1. No acute findings. 12/19: No clinical change 12/20: No clinical change, now off abx, monitor, discussed her medications with our pharmacist I believe that her posture and rigidity is likely from underlying anoxic encephalopathy. Continue to monitor and await placement decision. Continue aggressive suctioning. Plan discussed in detail with the nursing staff 12/21: Continue supportive care. Will give 500 cc bolus of fluid today to replace insensible losses. Tachycardia appears to be improving. Blood pressure precludes adjusting cardiac meds. Still awaiting placement from case management. Plan discussed in detail with the nursing staff 12/22. Continue support supportive care. Tracheostomy and PEG in place. Remains nonresponsive. Awaiting placement. 12/23. Continue support supportive care. Tracheostomy and PEG in place. Remains nonresponsive. Awaiting placement. Remains tachycardic. Decrease dose of lasix. Will try low dose metoprolol. Monitor BP closely 12/24. Continue support supportive care. Tracheostomy and PEG in place. Remains nonresponsive. Awaiting placement. Heart rate slightly better. Continue to monitor BP closely 12/25. Continue support supportive care. Tracheostomy and PEG in place. Remains nonresponsive. Awaiting placement. 12/26. Continue support supportive care. Tracheostomy and PEG in place. Remains nonresponsive. Awaiting placement 12/27. Continue support supportive care. Tracheostomy and PEG in place. Remains nonresponsive. Awaiting placement 12/28. Had fever yesterday. Blood culture drawn. UA - UTI - started on antibiotics. Now tracheal aspirate is growing GN rods. 12/29: Continue IV antibiotics, continue supportive care. Since admission patient has shown minimal or no chance of neurological recovery. Need 24/7 assistance. Currently on trach and PEG, nonverbal. Waiting on SNF placement. Discussed with family independence case manager today. 12/30: Continue IV antibiotics for UTI, continue supportive care. Pending placement 12/31: continue supportive care. continue supportive care. Pending placement 01/01: continue supportive care. Pending placement. cont Iv abx for UTI till 01/04 01/02: Continue supportive care, pending placement. Sodium level slightly elevated, will start hypotonic fluid. Continue antibiotics till 01/04 01/03; cont hypotonic fluid, increase free water with TF for hypernatremia, follow BMP. cont supportive care. pending placement. cont cefepime. recx blood 01/04: resolved hyponatremia, cont supportive care, pending placement. Last day of supplement today. 01/05: Continue supportive care, pending placement. Monitor H&H and fever curve off antibiotic. 01/06; monitor off abx, suction as needed, Continue supportive care, pending placement. 01/07: Discharge pending on placement, vitals stable. Continue supportive care 01/08: Discharge pending on placement, vitals stable. Continue supportive care. stop lasix, increase metoprolol to 25mg BID for ST. 01/09 patient resting with eyes closed. Opens eyes to tactile stimulus, has a blink reflex, does not follow simple commands, has a T-collar / G-tube Lab results reviewed, low-grade fever, 01/10 Eyes open, does not follow simple commands, no acute events overnight 01/11 no acute events overnight Waiting for placement 01/12 No acute events overnight. Patient awaiting for placement History Interval history: 30 year old -Lao female CHE 10/25/20 at 36w5d who presents with seizures in triage on 10/02/20. Pt was not able to provide history but per pt's , she presented to the hospital to return a 24 hour urine specimen for analysis. She then suddenly reported that she did not feel good. She was taken to labor and delivery and shortly after arrival, she began seizing. During this time, a code met was called because the patient became hypoxic. She was then noted to be without a pulse. Chest compressions were started immediately, and the patient was emergently taken to the operating room for delivery of the fetus. Off note, This patient has had care at [facility] with comanagement by [facility] since 11 wks complicated by ADHD, morbid obesity, generalized anxiety disorder, panic attacks, chronic narcotic use, fibromyalgia, GERD, Irritable Bowel Syndrome, Migraines, h/o endometrial ablation and ovarian vein embolization, genital herpes, insomnia, LGA fetus, nausea and vomiting, polyhydramnios, quad screen positive for Down's Syndrome, and previous x 3. She was GBS negative. Hospitalist Physical - Constitutional Vitals: Temp Pulse Resp BP Pulse Ox 98.6 F 103 H 18 112/64 100 01/12/21 04:26 01/12/21 04:01/12/21 04:01/12/21 04:01/12/21 08:43 General appearance: Present: other (Persistent vegetative state) - EENT Eyes: Present: PERRL, EOM intact ENT: hearing intact, clear oral mucosa, dentition normal - Neck Neck: Present: supple, normal ROM - Respiratory Respiratory effort: normal Respiratory: bilateral: CTA - Cardiovascular Rhythm: regular Heart Sounds: Present: S1 & S2. Absent: gallop, rub - Extremities Extremities: no ischemia, No edema, Full ROM - Abdominal General gastrointestinal: soft, non-tender, non-distended, normal bowel sounds - Integumentary Integumentary: Present: clear, warm, dry - Neurologic Neurologic: CNII-XII intact, moves all extremities HEART Score - HEART Score Age: < 45 Risk factors: 1-2 risk factors - Critical Actions Critical Actions: >7 pts:50-65% risk of adverse cardiac event. Early invasive measures Results - Labs CBC & Chem 7: 01/09/21 04:27 01/09/21 04:27 Labs: Laboratory Last Values WBC 8.7 K/mm3 (4.5-11.0) 01/09/21 04:27 RBC 5.22 M/mm3 (3.65-5.03) H 01/09/21 04:27 Hgb 12.9 gm/dl (10.1-14.3) 01/09/21 04:27 Hgb Comment See scanned result 10/04/20 Unknown Hct 39.7 % (30.3-42.9) 01/09/21 04:27 MCV 76 fl (79-97) L 01/09/21 04:27 MCH 25 pg (28-32) L 01/09/21 04:27 MCHC 32 % (30-34) 01/09/21 04:27 RDW 14.4 % (13.2-15.2) 01/09/21 04:27 Plt Count 210 K/mm3 (140-440) 01/09/21 04:27 Lymph % (Auto) 25.8 % (13.4-35.0) 01/09/21 04:27 [place] % (Auto) 9.7 % (0.0-7.3) H 01/09/21 04:27 Eos % (Auto) 1.1 % (0.0-4.3) 01/09/21 04:27 Baso % (Auto) 0.4 % (0.0-1.8) 01/09/21 04:27 Lymph # (Auto) 2.2 K/mm3 (1.2-5.4) 01/09/21 04:27 [place] # (Auto) 0.8 K/mm3 (0.0-0.8) 01/09/21 04:27 Eos # (Auto) 0.1 K/mm3 (0.0-0.4) 01/09/21 04:27 Baso # (Auto) 0.0 K/mm3 (0.0-0.1) 01/09/21 04:27 Add Manual Diff Complete 12/10/20 09:37 Total Counted 100 12/10/20 09:37 Seg Neutrophils % 63.0 % (40.0-70.0) 01/09/21 04:27 Seg Neuts % (Manual) 81.0 % (40.0-70.0) H 12/10/20 09:37 Band Neutrophils % 2.0 % 10/15/20 05:50 Lymphocytes % (Manual) 17.0 % (13.4-35.0) 12/10/20 09:37 Reactive Lymphs % (Man) 1.0 % 10/02/20 12:18 Monocytes % (Manual) 2.0 % (0.0-7.3) 12/10/20 09:37 Eosinophils % (Manual) 1.0 % (0.0-4.3) 10/29/20 07:56 Myelocytes % 2.0 % 10/02/20 13:05 Metamyelocytes % 1.0 % 10/14/20 04:00 Nucleated RBC % Not Reportable 12/10/20 09:37 Seg Neutrophils # 5.5 K/mm3 (1.8-7.7) 01/09/21 04:27 Seg Neutrophils # Man 10.1 K/mm3 (1.8-7.7) H 12/10/20 09:37 Band Neutrophils # 0.0 K/mm3 12/10/20 09:37 Lymphocytes # (Manual) 2.1 K/mm3 (1.2-5.4) 12/10/20 09:37 Abs React Lymphs (Man) 0.0 K/mm3 12/10/20 09:37 Monocytes # (Manual) 0.3 K/mm3 (0.0-0.8) 12/10/20 09:37 Eosinophils # (Manual) 0.0 K/mm3 (0.0-0.4) 12/10/20 09:37 Basophils # (Manual) 0.0 K/mm3 (0.0-0.1) 12/10/20 09:37 Metamyelocytes # 0.0 K/mm3 12/10/20 09:37 Myelocytes # 0.0 K/mm3 12/10/20 09:37 Promyelocytes # 0.0 K/mm3 12/10/20 09:37 Blast Cells # 0.0 K/mm3 12/10/20 09:37 WBC Morphology Not Reportable 12/10/20 09:37 Hypersegmented Neuts Not Reportable 12/10/20 09:37 Hyposegmented Neuts Not Reportable 12/10/20 09:37 Hypogranular Neuts Not Reportable 12/10/20 09:37 Smudge Cells Not Reportable 12/10/20 09:37 Toxic Granulation Not Reportable 12/10/20 09:37 Toxic Vacuolation Not Reportable 12/10/20 09:37 Dohle Bodies Not Reportable 12/10/20 09:37 Pelger-Huet Anomaly Not Reportable 12/10/20 09:37 Ester Rods Not Reportable 12/10/20 09:37 Platelet Estimate Consistent w auto 12/10/20 09:37 Clumped Platelets Not Reportable 12/10/20 09:37 Plt Clumps, EDTA Not Reportable 12/10/20 09:37 Large Platelets Not Reportable 12/10/20 09:37 Giant Platelets Not Reportable 12/10/20 09:37 Platelet Satelliting Not Reportable 12/10/20 09:37 Plt Morphology Comment Not Reportable 12/10/20 09:37 RBC Morphology Normal 12/10/20 09:37 Dimorphic RBCs Not Reportable 12/10/20 09:37 Polychromasia Not Reportable 12/10/20 09:37 Hypochromasia 1+ 12/10/20 09:37 Poikilocytosis Not Reportable 12/10/20 09:37 Anisocytosis Not Reportable 12/10/20 09:37 Microcytosis Not Reportable 12/10/20 09:37 Macrocytosis Not Reportable 12/10/20 09:37 Spherocytes Not Reportable 12/10/20 09:37 Pappenheimer Bodies Not Reportable 12/10/20 09:37 Sickle Cells Not Reportable 12/10/20 09:37 Target Cells Not Reportable 12/10/20 09:37 Tear Drop Cells Not Reportable 12/10/20 09:37 Ovalocytes Not Reportable 12/10/20 09:37 Stomatocytes Few 10/14/20 04:00 Helmet Cells Not Reportable 12/10/20 09:37 [place] Bodies Not Reportable 12/10/20 09:37 [place] Rings Not Reportable 12/10/20 09:37 [place] Cells Not Reportable 12/10/20 09:37 Bite Cells Not Reportable 12/10/20 09:37 Crenated Cell Not Reportable 12/10/20 09:37 Elliptocytes Not Reportable 12/10/20 09:37 Acanthocytes (Spur) Not Reportable 12/10/20 09:37 Rouleaux Not Reportable 12/10/20 09:37 Hemoglobin C Crystals Not Reportable 12/10/20 09:37 Schistocytes Not Reportable 12/10/20 09:37 Malaria parasites Not Reportable 12/10/20 09:37 Sickle Cell Solubility See scanned result 10/04/20 Unknown Hemoglobin A See scanned result 10/04/20 Unknown Hemoglobin A2 See scanned result 10/04/20 Unknown Hemoglobin A2 Prime See scanned result 10/04/20 Unknown Hemoglobin C See scanned result 10/04/20 Unknown Hemoglobin D See scanned result 10/04/20 Unknown Hemoglobin E See scanned result 10/04/20 Unknown Hgb F Diffential Stain See scanned result 10/04/20 Unknown Hemoglobin F Quant See scanned result 10/04/20 Unknown Hemoglobin G See scanned result 10/04/20 Unknown Hemoglobin S See scanned result 10/04/20 Unknown Hemoglobin [place] See scanned result 10/04/20 Unknown Hemoglobin [place] See scanned result 10/04/20 Unknown Hemoglobin Analilia See scanned result 10/04/20 Unknown Variant Hemoglobin See scanned result 10/04/20 Unknown Abnorm Hgb IEF Confirm See scanned result 10/04/20 Unknown Hemoglobin Interpret See scanned result 10/04/20 Unknown Hemoglobinopathy Note See scanned result 10/04/20 Unknown Sharad Bodies Not Reportable 12/10/20 09:37 Hem Pathologist Commnt No 12/10/20 09:37 PT 13.6 Sec. (12.2-14.9) 10/21/20 13:54 INR 1.06 (0.87-1.13) 10/21/20 13:54 APTT 31.6 Sec. (24.2-36.6) 10/03/20 00:40 Fibrinogen 336 mg/dl (211-480) 10/04/20 10:00 D-Dimer 1974.47 ng/mlDDU (0-234) H 11/11/20 13:50 ABG pH 7.459 pH Units (7.350-7.450) H 10/26/20 10:30 POC ABG pCO2 20.7 mmHg (32.0-48.0) L 10/13/20 07:18 ABG pCO2 32.4 mm Hg 10/26/20 10:30 POC ABG pO2 137.9 mmHg (83-108) H 10/13/20 07:18 ABG pO2 112.2 mm Hg (80.0-90.0) H 10/26/20 10:30 POC ABG HCO3 14.8 10/13/20 07:18 ABG HCO3 22.5 mmol/L (20.0-26.0) 10/26/20 10:30 ABG O2 Saturation 98.2 % (95.0-99.0) 10/26/20 10:30 ABG O2 Content 18.5 (0.0-44) 10/26/20 10:30 POC ABG Base Excess -6.9 10/13/20 07:18 ABG Base Excess -0.6 mmol/L (-2.0-3.0) 10/26/20 10:30 ABG Hemoglobin 13.5 gm/dl (12.0-16.0) 10/26/20 10:30 ABG Oxyhemoglobin 98.3 (94-98) H 10/13/20 07:18 ABG Carboxyhemoglobin 1.3 % (0.0-5.0) 10/26/20 10:30 ABG Methemoglobin 0.5 % (0.0-1.5) 10/26/20 10:30 ABG Sodium 135.9 mmol/L (136.0-145.0) L 10/13/20 07:18 ABG Potassium 3.7 mmol/L (3.40-4.50) 10/13/20 07:18 ABG Chloride 111.0 mmol/L (98-107) H 10/13/20 07:18 ABG Glucose 109 mg/dL (65-95) H 10/13/20 07:18 VBG pH 6.949 (7.320-7.420) L* 10/02/20 Unknown Oxyhemoglobin 96.5 % (95.0-99.0) 10/26/20 10:30 Carboxyhemoglobin 0.3 (0.5-1.5) L 10/13/20 07:18 FiO2 25 % 10/26/20 10:30 Sodium 143 mmol/L (137-145) 01/09/21 04:27 Potassium 3.9 mmol/L (3.6-5.0) 01/09/21 04:27 Chloride 105.4 mmol/L (98-107) 01/09/21 04:27 Carbon Dioxide 25 mmol/L (22-30) 01/09/21 04:27 Anion Gap 17 mmol/L 01/09/21 04:27 BUN 9 mg/dL (7-17) 01/09/21 04:27 Creatinine 0.5 mg/dL (0.6-1.2) L 01/09/21 04:27 Estimated GFR > 60 ml/min 01/09/21 04:27 BUN/Creatinine Ratio 18 % 01/09/21 04:27 Glucose 98 mg/dL (65-100) 01/09/21 04:27 POC Glucose 97 mg/dL (70-105) 01/11/21 23:35 Random Insulin 43.2 uIU/mL (<=19.6) H 11/02/20 19:19 Proinsulin See scanned result 11/02/20 19:19 C-Peptide 6.23 ng/mL (0.80-3.85) H 11/02/20 19:19 Lactic Acid 1.90 mmol/L (0.7-2.0) 10/04/20 22:00 Uric Acid 7.5 mg/dL (3.5-7.6) 10/02/20 13:05 Calcium 9.4 mg/dL (8.4-10.2) 01/09/21 04:27 Ionized Calcium 4.4 mg/dL (4.8-5.6) L 10/07/20 21:00 Phosphorus 4.60 mg/dL (2.5-4.5) H 11/13/20 10:05 Magnesium 2.10 mg/dL (1.7-2.3) 11/13/20 10:05 Total Bilirubin 0.40 mg/dL (0.1-1.2) 12/22/20 11:03 AST 45 units/L (5-40) H 12/22/20 11:03 ALT 33 units/L (7-56) 12/22/20 11:03 Alkaline Phosphatase 100 units/L (35-129) 12/22/20 11:03 Lactate Dehydrogenase 769 units/L (91-180) H 10/02/20 13:05 C-Reactive Protein 0.70 mg/dL (0.00-1.30) 11/11/20 13:50 NT-Pro-B Natriuret Pep 2788 pg/mL (0-450) H 10/04/20 10:00 Total Protein 7.5 g/dL (6.3-8.2) 12/22/20 11:03 Albumin 3.8 g/dL (3.9-5) L 12/22/20 11:03 Albumin/Globulin Ratio 1.0 % 12/22/20 11:03 Procalcitonin < 0.05 ng/mL (<0.15) 12/27/20 20:16 Arterial Blood Glucose 109 mg/dL (65-95) H 10/13/20 07:18 Arterial Blood Ionized Calcium 4.6 mg/dL (4.6-5.3) 10/13/20 07:18 Urine Color Kelsey (Yellow) 12/27/20 22:25 Urine Turbidity Cloudy (Clear) 12/27/20 22:25 Urine pH 7.0 (5.0-7.0) 12/27/20 22:25 Ur Specific [facility] 1.018 (1.003-1.030) 12/27/20 22:25 Urine Protein 30 mg/dl mg/dL (Negative) 12/27/20 22:25 Urine Glucose (UA) Neg mg/dL (Negative) 12/27/20 22:25 Urine Ketones Neg mg/dL (Negative) 12/27/20 22:25 Urine Blood Sm (Negative) 12/27/20 22:25 Urine Nitrite Pos (Negative) 12/27/20 22:25 Urine Bilirubin Neg (Negative) 12/27/20 22:25 Urine Urobilinogen 2.0 mg/dL (<2.0) 12/27/20 22:25 Ur Leukocyte Esterase Lg (Negative) 12/27/20 22:25 Urine WBC (Auto) 5.0 /HPF (0.0-6.0) 12/27/20 22:25 Urine RBC (Auto) 22.0 /HPF (0.0-6.0) 12/27/20 22:25 U Epithel Cells (Auto) 16.0 /HPF (0-13.0) H 12/27/20 22:25 Urine Bacteria (Auto) 4+ /HPF (Negative) 12/27/20 22:25 Urine WBC Clumps 3+ /HPF 11/11/20 13:50 Calcium Oxalate Crystal Few 11/11/20 13:50 Urine Mucus 3+ /HPF 12/27/20 22:25 Urine Yeast (Budding) 2+ /HPF 12/10/20 09:25 Vancomycin Trough 12.6 ug/mL (5.0-20.0) 10/21/20 13:54 Random Vancomycin 10.7 ug/mL (0-40.0) 10/16/20 13:09 Phenytoin 5.7 ug/mL (10.0-20.0) L 10/13/20 07:00 C. difficile Tox (PCR) Positive (Negative) 10/16/20 10:22 Coronavirus (PCR) Negative (Negative) 10/08/20 14:15 Blood Type O POSITIVE 10/02/20 12:50 Antibody Screen Negative 10/02/20 12:50 Crossmatch See Detail 10/02/20 12:50 - Diagnostic Impressions Diagnostic Impressions: Echocardiogram 10/03/20 13:42 Transthoracic Echocardiogram Indication: S/P Cardiac Arrest R/O Cardiomyopathy BP: 133/71 Conclusions *Global left ventricular systolic function is normal. *The estimated ejection fraction is 60-65%. *There is trace of mitral regurgitation. *The right 0heart chambers are both slightly dilated. *There is mild tricuspid regurgitation. *There is mild-moderate pulmonary hypertension. *The right ventricular systolic pressure is calculated at 44 mmHg. *The study quality is technically difficult. Findings Procedure Info: The study quality is technically difficult. The study is technically limited due to patient body habitus. The study was technically limited due to the patient's inability to lay in the left lateral decubitus position. Left Ventricle: The left ventricular chamber size is normal. There is no left ventricular hypertrophy. Global left ventricular systolic function is normal. The estimated ejection fraction is 60-65%. Left Atrium: The left atrial chamber size is normal. Right Ventricle: The right ventricle is slightly dilated. Right Atrium: The right atrium is mildly dilated. Aortic Valve: The aortic valve leaflets are mildly thickened. There is no evidence of aortic regurgitation. There is no evidence of aortic stenosis. Mitral Valve: The mitral valve leaflets are mildly thickened. There is trace of mitral regurgitation. There is no evidence of mitral stenosis. Tricuspid Valve: There is mild tricuspid regurgitation. The right ventricular systolic pressure is calculated at 44 mmHg. There is evidence of mild pulmonary hypertension. Pulmonic Valve: There is trace pulmonic regurgitation. Pericardium: There is no pericardial effusion. Aorta: There is no dilatation of the ascending aorta. There is no dilatation of the aortic root. Venous: The inferior vena cava is dilated. Measurements Chambers 2D Name Value Normal Range IVSd (2D) 1 cm (0.6 - 1.1) LVPWd (2D) 1.01 cm (0.6 - 1.1) LVIDd (2D) 4.58 cm (3.7 - 5.6) LVIDs (2D) 3.17 cm (2 - 3.8) LV FS (2D) 30.93 % - EF Teichholz (2D) 58.66 % - Ao root diameter (2D) 2.94 cm (2 - 3.7) Volumes/Mass Name Value Normal Range LA ESV SP 4CH (A/L) 72.82 ml - LA ESV SP 2CH (A/L) 66.86 ml - LA ESV BP (A/L) 74.49 ml - LA ESV SP 4CH (MOD) 71.03 ml - LA ESV SP 2CH (MOD) 64.3 ml - LV EDV SP 4CH (MOD) 98.82 ml - LV ESV SP 4CH (MOD) 24.8 ml - EF SP 4CH (MOD) 74.9 % - LV EDV SP 2CH (MOD) 86.1 ml - LV ESV SP 2CH (MOD) 36.93 ml - EF SP 2CH (MOD) 57.11 % - LV EDV BP 94.4 ml - LV ESV BP 32.66 ml - BP EF (MOD) 65.4 % - Diastolic/Systolic Function Name Value Normal Range MV E-wave Vmax 1.04 m/sec - MV deceleration time 160.46 msec - MV A-wave Vmax 0.92 m/sec - MV E:A ratio 1.14 ratio - Aortic Valve Name Value Normal Range AV Vmax 2.12 m/sec - AV VTI 22.37 cm - AV peak gradient 17.95 mmHg - AV mean gradient 7.29 mmHg - LVOT diameter 2.01 cm - LVOT Vmax 1.8 m/sec - LVOT VTI 27.17 cm - LVOT peak gradient 12.91 mmHg - LVOT mean gradient 6.83 mmHg - SV LVOT 86.42 ml - ANITA (continuity Vmax) 2.7 cm2 - ANITA (continuity VTI) 3.86 cm2 - Ascending Ao 3.18 cm - Tricuspid Valve Name Value Normal Range TV E-wave Vmax 0.88 m/sec - TR Vmax 3.01 m/sec - TR peak gradient 36.27 mmHg - RAP 8 mmHg - RVSP 44 mmHg - IVC diameter 2.65 cm (1.2 - 2.3) Pulmonic Valve/Qp:Qs Name Value Normal Range PV Vmax 1.22 m/sec - PV peak gradient 5.91 mmHg - RVOT Vmax 0.87 m/sec - RVOT VTI 13.32 cm - RVOT peak gradient 3 mmHg - PV acceleration time 110.37 msec - [place]/IV: Voiding Method Incontinent IV Catheter Type [Right Foot] INT / Saline Lock IV Catheter Type [Left Forearm Peripheral IV ] IV Catheter Type [Left Wrist] INT / Saline Lock IV Catheter Type [Right Hand] INT / Saline Lock IV Catheter Type [Right INT / Saline Lock Antecubital] IV Catheter Type [Right Upper Mid-line arm] IV Catheter Type [Left Triple Lumen Cath Internal Jugular] IV Catheter Type [Left Hand] Peripheral IV IV Catheter Type [Left Peripheral IV Antecubital] Active Medications - Current Medications Current Medications: Generic Name Dose Route Start Last Admin Trade Name Freq PRN Reason Stop Dose Admin Acetaminophen 650 mg 10/05/20 16:34 01/10/21 22:48 Acetaminophen 325 Mg/10.15 Ml Oral Liqd Unit Dose FEEDTUBE 650 mg Q6H PRN Administration Non Cardiac Pain or Temp>100.5 Albuterol 2.5 mg 11/05/20 13:03 11/06/20 13:04 Albuterol 2.5 Mg/3 Ml Nebu IH 2.5 mg Q4HRT PRN Administration Shortness Of Breath Lipase/Protease/Amylase 1 each 10/05/20 11:09 Lipase 10,500/Protease 25,000/Amylase 43,750 (Units) Dr Barakat FEEDTUBE PRN PRN For Clogged Feeding Tube Enoxaparin Sodium 40 mg 10/22/20 10:00 01/11/21 11:48 Enoxaparin 40 Mg/0.4 Ml Inj SUB-Q 40 mg DAILY ERINN Administration Protocol Famotidine 20 mg 10/07/20 10:00 01/11/21 23:11 Famotidine 20 Mg Tab PO 20 mg BID ERINN Administration Hydralazine HCl 20 mg 10/07/20 11:49 10/17/20 07:20 Hydralazine 20 Mg/1 Ml Inj IV 20 mg Q6H PRN Administration SBP >170 Hydrophilic Ointment 1 applic 01/03/21 13:00 Lip Therapy Vaseline TP DIRECT PRN Dry Lips Dextrose 1,000 mls @ 30 mls/hr 01/03/21 12:00 01/10/21 05:36 D5w IV 75 mls/hr DIRECT ERINN Administration Metoprolol Tartrate 25 mg 01/08/21 22:00 01/11/21 23:11 Metoprolol Tartrate 25 Mg Tab PO 25 mg BID ERINN Administration Polyethylene Glycol 17 gm 12/27/20 15:07 12/28/20 10:05 Polyethylene Glycol 3350 17 Gm Powder PO 17 gm QDAY PRN Administration Constipation Simple Syrup 15 ml 10/05/20 11:09 Simple Syrup 15 Ml FEEDTUBE PRN PRN Hypoglycemia Simple Syrup 30 ml 10/05/20 11:09 Simple Syrup 15 Ml FEEDTUBE PRN PRN Hypoglycemia Sodium Bicarbonate 325 mg 10/05/20 11:09 12/16/20 08:19 Sodium Bicarbonate 325 Mg Tab FEEDTUBE 325 mg PRN PRN Administration For Clogged Feeding Tube Nutrition/Malnutrition Assess - Dietary Evaluation Nutrition/Malnutrition Findings: Nutrition Notes Start: 10/04/20 11 :13 Freq: Status: Active Protocol: Document 03/29/21 15:00 FRANKOCARIN (Rec: 01/11/21 15:07 [facility] [id number]) Nutrition Notes Initial or Follow up Reassessment Current Diagnosis Respiratory Failure Other Pertinent Diagnosis C-Diff, s/p NC, s/p and supracervical hysterectomy Current Diet TF - Jevity 1.2 at 60 mL/hr Labs/Tests Na 143 (01/09) Pertinent Medications D5W at 30ml/hr Height 5 ft 8 in Weight 88.6 kg [place] Body Weight (kg) 63.63 BMI 29.7 Weight Status Overweight Subjective/Other Information Spoke with RN via phone at 14: 48. Pt tolerating TF at goal rate; receives 100ml water flush q4h. Pt awaiting placement. Percent of energy/protein needs met: 87% energy 100% pro Burn Absent Trauma Absent #2 Nutrition Diagnosis Malnutrition Diagnosis Progress(for reassessment Continues documentation) #1 Nutrition Diagnosis Inadequate oral intake Diagnosis Progress(for reassessment Continues documentation) Is patient on ventilator? No Is Patient Ambulatory and/or Out of Bed No [facility] 1974.404 [facility] Additional Notes Pro needs 0.8-1g/k-89g/ day Fluid needs 1ml/kcal Nutrition Intervention Nutrition Support: Continue Jevity 1.2 at 60ml/hr . Flush 100ml q4h. Kcal 1,728 Protein (gm) 80 Fluid (mL) 1,162 Goal #1 TF tolerance Goal #2 TF to meet at least 75% energy and pro needs Follow-Up By: 01/18/21 Additional Comments F/U: stable TF, wt
[2021-01-12] MEDS: FAMOTIDINE 20 MG TAB PO SCH ×2 (11:28→21:23)
[2021-01-12] MEDS: ENOXAPARIN 40 MG/0.4 ML INJ SUB-Q SCH (11:28)
[2021-01-12] MEDS: METOPROLOL TARTRATE 25 MG TAB PO SCH ×2 (11:28→21:23)
[2021-01-12] MEDS: DEXTROSE 5% IN WATER 1,000 ML IV SCH (21:25)
--- NOTE | 2021-01-13 09:05 | Progress Note ---
Assessment and Plan Assessment and plan: --DIC (disseminated intravascular coagulation) vs HELLP syndrome Resolved --Possible Eclampsia/HELLP Syndrome Resolved --s/p Cardiac arrest x2 on admission and on 10/07 ACLS protocol followed by revival Echo showed preserved Ef --Anoxic brain injury, Developed following cardiac arrest, continue supportive care --Shock-resolved now awaiting placement s/p pressor support --ADOLPH-resolved Stable --Sepsis 2/2 UTI s/p cefepime to cover possible pseudomonas as sputum is also growing GN rods till 01/04/21 Previous urine culture grew pansensitive ecoli Blood cultures from 12/27-no growth --Hypernatremia, resolved, cont free water with TF --DVT prophylaxis Patient presented with DIC No anticoagulants Overall prognosis extremely poor. Daily clinical course 10/02/21 11:30: Pt brought to L&D triage for evaluation of possible labor. Pt accompanied by her spouse. Pt spouse poor historian; unable to obtain history- allergies at this time. Pt taken from registration to triage area via WC. Pt unresponsive, actively seizing with snorous respirations. senior interior designer, Kassy, called and requesting assistance. 11:35: Multiple staff at bedside. Pt 02 sat 67% on nonrebreather, unable to read BP at this time. Yifan Theodore CRNA, at bedside for intubation and assistance with IV insertion. INT attempt by multiple RNs unsuccessful at this time. 11:42: Pt being bagged by KORIN, 02% 79%. No pulse palpated, compressions started at this time; bharati young called and Dr. Newberry preparing OR for emergent c/s. 11:44: Continued compressions on stretcher while transporting pt to OR 1. Pt being bagged with jaw thrust manuever in place by KORIN Stringer student. 11:45: Arrival to OR 1. Dr. Newberry and Dr. Portillo present for emergent c/s. Code team arrived for continued care. patient revived and c/s done Patient has been bleeding from C/s site followed by supracervical hysterectomy for severe bleeding Patient transfused multiple units of PRBC, Patient in DIC. Transferred to the [facility] 10/03. Patient seen and examined at bedside this morning. Patient is nonresponsive and mechanically ventilated. On pressors. Labs reviewed-has leukocytosis, anemia, thrombocytopenia, ADOLPH and lactic acidosis. Started on IV antibiotics to cover possible sepsis secondary to DIC. Hematology oncology recommendations appreciated-needs additional cryoprecipitate and FFP. Monitor D-dimer, fibrinogen and frequent labs. Nephrology consulted for lactic acidosis and ADOLPH. 10/04. Remains mechanically ventilated. [place] antibiotics. Labs shows improved acidosis - lactic acid 3.5. Hb drop noted. Getting transfused 2 units PRBCs. Platelet count is ~40k. Continue to monitor labs closely. Critical care team on board. 10/05; xray reviewed, concerning for multifocal infilrate, likely underlying [place], will add ID consult to assist with management of this critically ill patient, start tube feed, closely monitor renal system 10/06: Resumed care, remains on mechanical ventilation. No active bleeding, H&H stable. Continue to monitor CBC and BMP. Continue IV antibiotic for underlying pneumonia. Follow critical care and ID recommendation. 10/07: Remains on mechanical ventilation. No active bleeding, H&H stable. Critical care following, wean off ventilation as tolerated. 10/08: Patient had another cardiac arrest last night. Remains on mechanical ventilation, update family. Continue supportive care -poor prognosis 10/09: Called patient mother and discussed about patient care and management. Answered all question to best of my knowledge and family satisfaction. Patient remains on mechanical ventilation, cardiac arrest x2 so far. Critically sick, poor prognosis 10/10: remains on mechanical ventilation. h/h stable, no active bleeding. monitor CBC/BMP 10/11: WBC trended up with diarrhea, started on vancomycin po. remains on MV, off pressor, tolerating TF 10/12: remains on MV, off pressor, tolerating TF. called family for update but unable to reach, could not leave message as it was full. cont supportive care, wean off vent as tolerated. 10/13/2020; patient is on mechanical ventilation, tolerating tube feeding. Patient has labored breathing. Neuro was consulted and recommend MRI. Patient is on Precedex. Rectal tube in place. 10/14/2020; patient is on mechanical ventilation, Precedex. Patient had fever and blood culture ordered. Patient is on IV vancomycin per ID recommendation. Neuro consulted and recommend MRI. Continue to monitor. Prognosis is guarded. 10/15/2020; patient is on mechanical ventilation, Precedex. Patient had fever and blood culture ordered. Patient is on IV vancomycin per ID recommendation. Neuro consulted and recommend MRI. Continue to monitor. Prognosis is guarded. 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 12/06/20; anoxic brain injury. Awaiting placement. 12/07/2020; anoxic brain injury, awaiting placement. 12/09/2020; anoxic brain injury, awaiting placement. 12/10/2020; patient had episodes of fever overnight. CBC, BMP, blood culture, UA and chest x-ray ordered, will follow and manage accordingly. Urinalysis is suggestive of UTI and I put the patient on ceftriaxone, order urine culture. Chest x-ray is normal. 12/11/2020; patient is on ceftriaxone day 2 for UTI. We will continue to follow urine culture. 12/12/2020. Day #3 of Rocephin for UTI. We will continue for 2 more days while she is here. Present UTI. 12/13/2020. Day #4 of Rocephin for UTI. Patient remains on 50% with tracheost jayne. Remains unresponsive with evidence of anoxic encephalopathy unable to make needs known. 12/14/2020. Day #5 of Rocephin for UTI completed today. Remains encephalopathic unable to make needs known. Remains on 50% unable to decrease oxygen via tracheostomy. Overall prognosis remains extremely poor. 3: Continue to monitor. Stop and monitor antibiotics at this time. Continue to wean oxygen as tolerated. Wean oxygen as tolerated. Case management working on placement. 12/16: Continue supportive care aspiration precautions. Awaiting placement discussion. Monitor fever curve. Prognosis remains poor no evidence of neurological recovery as of today 3: Continue supportive care, check labs and chest xray. Still monitor off antibiotics. Monitor Sodium level 12/18: Patient remains with intermittent low grade fever, reviewed EEG from September again, consistent for Ischemic Hypoxic Encephalopathy, patient with decorticating posturing type presentation. Will discuss with alterations manager to opt imize diet so we can discontinue D5. CXR with no abnormality. Discussed extensively with the nursing staff at bedside CXR IMPRESSION: 1. No acute findings. 12/19: No clinical change 12/20: No clinical change, now off abx, monitor, discussed her medications with our pharmacist I believe that her posture and rigidity is likely from underlying anoxic encephalopathy. Continue to monitor and await placement decision. Continue aggressive suctioning. Plan discussed in detail with the nursing staff 12/21: Continue supportive care. Will give 500 cc bolus of fluid today to replace insensible losses. Tachycardia appears to be improving. Blood pressure precludes adjusting cardiac meds. Still awaiting placement from case management. Plan discussed in detail with the nursing staff 12/22. Continue support supportive care. Tracheostomy and PEG in place. Remains nonresponsive. Awaiting placement. 12/23. Continue support supportive care. Tracheostomy and PEG in place. Remains nonresponsive. Awaiting placement. Remains tachycardic. Decrease dose of lasix. Will try low dose metoprolol. Monitor BP closely 12/24. Continue support supportive care. Tracheostomy and PEG in place. Remains nonresponsive. Awaiting placement. Heart rate slightly better. Continue to monitor BP closely 12/25. Continue support supportive care. Tracheostomy and PEG in place. Remains nonresponsive. Awaiting placement. 12/26. Continue support supportive care. Tracheostomy and PEG in place. Remains nonresponsive. Awaiting placement 12/27. Continue support supportive care. Tracheostomy and PEG in place. Remains nonresponsive. Awaiting placement 12/28. Had fever yesterday. Blood culture drawn. UA - UTI - started on antibiotics. Now tracheal aspirate is growing GN rods. 12/29: Continue IV antibiotics, continue supportive care. Since admission patient has shown minimal or no chance of neurological recovery. Need 24/7 assistance. Currently on trach and PEG, nonverbal. Waiting on SNF placement. Discussed with showcase trimmer today. 12/30: Continue IV antibiotics for UTI, continue supportive care. Pending placement 12/31: continue supportive care. continue supportive care. Pending placement 01/01: continue supportive care. Pending placement. cont Iv abx for UTI till 01/04 01/02: Continue supportive care, pending placement. Sodium level slightly elevated, will start hypotonic fluid. Continue antibiotics till 01/04 01/03; cont hypotonic fluid, increase free water with TF for hypernatremia, follow BMP. cont supportive care. pending placement. cont cefepime. recx blood 01/04: resolved hyponatremia, cont supportive care, pending placement. Last day of supplement today. 01/05: Continue supportive care, pending placement. Monitor H&H and fever curve off antibiotic. 01/06; monitor off abx, suction as needed, Continue supportive care, pending placement. 01/07: Discharge pending on placement, vitals stable. Continue supportive care 01/08: Discharge pending on placement, vitals stable. Continue supportive care. stop lasix, increase metoprolol to 25mg BID for ST. 01/09 patient resting with eyes closed. Opens eyes to tactile stimulus, has a blink reflex, does not follow simple commands, has a T-collar / G-tube Lab results reviewed, low-grade fever, 01/10 Eyes open, does not follow simple commands, no acute events overnight 01/11 no acute events overnight Waiting for placement 01/12 No acute events overnight. Patient awaiting for placement 01/13. No new issues. Awaiting placement History Interval history: 30 year old -[place] female CHE 10/25/20 at 36w5d who presents with seizures in triage on 10/02/20. Pt was not able to provide history but per pt's , she presented to the hospital to return a 24 hour urine specimen for analysis. She then suddenly reported that she did not feel good. She was taken to labor and delivery and shortly after arrival, she began seizing. During this time, a code met was called because the patient became hypoxic. She was then noted to be without a pulse. Chest compressions were started immediately, and the patient was emergently taken to the operating room for delivery of the fetus. Off note, This patient has had care at [facility] with comanagement by [facility] since 11 wks complicated by ADHD, morbid obesity, generalized anxiety disorder, panic attacks, chronic narcotic use, fibromyalgia, GERD, Irritable Bowel Syndrome, Migraines, h/o endometrial ablation and ovarian vein embolization, genital herpes, insomnia, LGA fetus, nausea and vomiting, polyhydramnios, quad screen positive for Down's Syndrome, and previous x 3. She was GBS negative. Hospitalist Physical - Constitutional Vitals: Temp Pulse Resp BP Pulse Ox 99.1 F 106 H 17 100/48 97 01/13/21 05:51 01/13/21 05:51 01/13/21 05:51 01/13/21 05:51 01/13/21 05:51 General appearance: Present: other (Persistent vegetative state) - EENT Eyes: Present: PERRL, EOM intact ENT: hearing intact, clear oral mucosa, dentition normal - Neck Neck: Present: supple, normal ROM - Respiratory Respiratory effort: normal Respiratory: bilateral: CTA - Cardiovascular Rhythm: regular Heart Sounds: Present: S1 & S2. Absent: gallop, rub - Extremities Extremities: no ischemia, No edema, Full ROM - Abdominal General gastrointestinal: soft, non-tender, non-distended, normal bowel sounds - Integumentary Integumentary: Present: clear, warm, dry - Neurologic Neurologic: CNII-XII intact, moves all extremities HEART Score - HEART Score Age: < 45 Risk factors: 1-2 risk factors - Critical Actions Critical Actions: >7 pts:50-65% risk of adverse cardiac event. Early invasive measures Results - Labs CBC & Chem 7: 01/09/21 04:27 01/09/21 04:27 Labs: Laboratory Last Values WBC 8.7 K/mm3 (4.5-11.0) 01/09/21 04:27 RBC 5.22 M/mm3 (3.65-5.03) H 01/09/21 04:27 Hgb 12.9 gm/dl (10.1-14.3) 01/09/21 04:27 Hgb Comment See scanned result 10/04/20 Unknown Hct 39.7 % (30.3-42.9) 01/09/21 04:27 MCV 76 fl (79-97) L 01/09/21 04:27 MCH 25 pg (28-32) L 01/09/21 04:27 MCHC 32 % (30-34) 01/09/21 04:27 RDW 14.4 % (13.2-15.2) 01/09/21 04:27 Plt Count 210 K/mm3 (140-440) 01/09/21 04:27 Lymph % (Auto) 25.8 % (13.4-35.0) 01/09/21 04:27 [place] % (Auto) 9.7 % (0.0-7.3) H 01/09/21 04:27 Eos % (Auto) 1.1 % (0.0-4.3) 01/09/21 04:27 Baso % (Auto) 0.4 % (0.0-1.8) 01/09/21 04:27 Lymph # (Auto) 2.2 K/mm3 (1.2-5.4) 01/09/21 04:27 [place] # (Auto) 0.8 K/mm3 (0.0-0.8) 01/09/21 04:27 Eos # (Auto) 0.1 K/mm3 (0.0-0.4) 01/09/21 04:27 Baso # (Auto) 0.0 K/mm3 (0.0-0.1) 01/09/21 04:27 Add Manual Diff Complete 12/10/20 09:37 Total Counted 100 12/10/20 09:37 Seg Neutrophils % 63.0 % (40.0-70.0) 01/09/21 04:27 Seg Neuts % (Manual) 81.0 % (40.0-70.0) H 12/10/20 09:37 Band Neutrophils % 2.0 % 10/15/20 05:50 Lymphocytes % (Manual) 17.0 % (13.4-35.0) 12/10/20 09:37 Reactive Lymphs % (Man) 1.0 % 10/02/20 12:18 Monocytes % (Manual) 2.0 % (0.0-7.3) 12/10/20 09:37 Eosinophils % (Manual) 1.0 % (0.0-4.3) 10/29/20 07:56 Myelocytes % 2.0 % 10/02/20 13:05 Metamyelocytes % 1.0 % 10/14/20 04:00 Nucleated RBC % Not Reportable 12/10/20 09:37 Seg Neutrophils # 5.5 K/mm3 (1.8-7.7) 01/09/21 04:27 Seg Neutrophils # Man 10.1 K/mm3 (1.8-7.7) H 12/10/20 09:37 Band Neutrophils # 0.0 K/mm3 12/10/20 09:37 Lymphocytes # (Manual) 2.1 K/mm3 (1.2-5.4) 12/10/20 09:37 Abs React Lymphs (Man) 0.0 K/mm3 12/10/20 09:37 Monocytes # (Manual) 0.3 K/mm3 (0.0-0.8) 12/10/20 09:37 Eosinophils # (Manual) 0.0 K/mm3 (0.0-0.4) 12/10/20 09:37 Basophils # (Manual) 0.0 K/mm3 (0.0-0.1) 12/10/20 09:37 Metamyelocytes # 0.0 K/mm3 12/10/20 09:37 Myelocytes # 0.0 K/mm3 12/10/20 09:37 Promyelocytes # 0.0 K/mm3 12/10/20 09:37 Blast Cells # 0.0 K/mm3 12/10/20 09:37 WBC Morphology Not Reportable 12/10/20 09:37 Hypersegmented Neuts Not Reportable 12/10/20 09:37 Hyposegmented Neuts Not Reportable 12/10/20 09:37 Hypogranular Neuts Not Reportable 12/10/20 09:37 Smudge Cells Not Reportable 12/10/20 09:37 Toxic Granulation Not Reportable 12/10/20 09:37 Toxic Vacuolation Not Reportable 12/10/20 09:37 Dohle Bodies Not Reportable 12/10/20 09:37 Pelger-Huet Anomaly Not Reportable 12/10/20 09:37 Ester Rods Not Reportable 12/10/20 09:37 Platelet Estimate Consistent w auto 12/10/20 09:37 Clumped Platelets Not Reportable 12/10/20 09:37 Plt Clumps, EDTA Not Reportable 12/10/20 09:37 Large Platelets Not Reportable 12/10/20 09:37 Giant Platelets Not Reportable 12/10/20 09:37 Platelet Satelliting Not Reportable 12/10/20 09:37 Plt Morphology Comment Not Reportable 12/10/20 09:37 RBC Morphology Normal 12/10/20 09:37 Dimorphic RBCs Not Reportable 12/10/20 09:37 Polychromasia Not Reportable 12/10/20 09:37 Hypochromasia 1+ 12/10/20 09:37 Poikilocytosis Not Reportable 12/10/20 09:37 Anisocytosis Not Reportable 12/10/20 09:37 Microcytosis Not Reportable 12/10/20 09:37 Macrocytosis Not Reportable 12/10/20 09:37 Spherocytes Not Reportable 12/10/20 09:37 Pappenheimer Bodies Not Reportable 12/10/20 09:37 Sickle Cells Not Reportable 12/10/20 09:37 Target Cells Not Reportable 12/10/20 09:37 Tear Drop Cells Not Reportable 12/10/20 09:37 Ovalocytes Not Reportable 12/10/20 09:37 Stomatocytes Few 10/14/20 04:00 Helmet Cells Not Reportable 12/10/20 09:37 Burk-Essig Bodies Not Reportable 12/10/20 09:37 [place] Rings Not Reportable 12/10/20 09:37 [place] Cells Not Reportable 12/10/20 09:37 Bite Cells Not Reportable 12/10/20 09:37 Crenated Cell Not Reportable 12/10/20 09:37 Elliptocytes Not Reportable 12/10/20 09:37 Acanthocytes (Spur) Not Reportable 12/10/20 09:37 Rouleaux Not Reportable 12/10/20 09:37 Hemoglobin C Crystals Not Reportable 12/10/20 09:37 Schistocytes Not Reportable 12/10/20 09:37 Malaria parasites Not Reportable 12/10/20 09:37 Sickle Cell Solubility See scanned result 10/04/20 Unknown Hemoglobin A See scanned result 10/04/20 Unknown Hemoglobin A2 See scanned result 10/04/20 Unknown Hemoglobin A2 Prime See scanned result 10/04/20 Unknown Hemoglobin C See scanned result 10/04/20 Unknown Hemoglobin D See scanned result 10/04/20 Unknown Hemoglobin E See scanned result 10/04/20 Unknown Hgb F Diffential Stain See scanned result 10/04/20 Unknown Hemoglobin F Quant See scanned result 10/04/20 Unknown Hemoglobin G See scanned result 10/04/20 Unknown Hemoglobin S See scanned result 10/04/20 Unknown Hemoglobin [place] See scanned result 10/04/20 Unknown Hemoglobin [place] See scanned result 10/04/20 Unknown Hemoglobin Analilia See scanned result 10/04/20 Unknown Variant Hemoglobin See scanned result 10/04/20 Unknown Abnorm Hgb IEF Confirm See scanned result 10/04/20 Unknown Hemoglobin Interpret See scanned result 10/04/20 Unknown Hemoglobinopathy Note See scanned result 10/04/20 Unknown Sharad Bodies Not Reportable 12/10/20 09:37 Hem Pathologist Commnt No 12/10/20 09:37 PT 13.6 Sec. (12.2-14.9) 01/06/21 13:54 INR 1.06 (0.87-1.13) 10/21/20 13:54 APTT 31.6 Sec. (24.2-36.6) 10/03/20 00:40 Fibrinogen 336 mg/dl (211-480) 10/04/20 10:00 D-Dimer 1974.47 ng/mlDDU (0-234) H 11/11/20 13:50 ABG pH 7.459 pH Units (7.350-7.450) H 10/26/20 10:30 POC ABG pCO2 20.7 mmHg (32.0-48.0) L 10/13/20 07:18 ABG pCO2 32.4 mm Hg 10/26/20 10:30 POC ABG pO2 137.9 mmHg (83-108) H 10/13/20 07:18 ABG pO2 112.2 mm Hg (80.0-90.0) H 10/26/20 10:30 POC ABG HCO3 14.8 10/13/20 07:18 ABG HCO3 22.5 mmol/L (20.0-26.0) 10/26/20 10:30 ABG O2 Saturation 98.2 % (95.0-99.0) 10/26/20 10:30 ABG O2 Content 18.5 (0.0-44) 10/26/20 10:30 POC ABG Base Excess -6.9 10/13/20 07:18 ABG Base Excess -0.6 mmol/L (-2.0-3.0) 10/26/20 10:30 ABG Hemoglobin 13.5 gm/dl (12.0-16.0) 10/26/20 10:30 ABG Oxyhemoglobin 98.3 (94-98) H 10/13/20 07:18 ABG Carboxyhemoglobin 1.3 % (0.0-5.0) 10/26/20 10:30 ABG Methemoglobin 0.5 % (0.0-1.5) 10/26/20 10:30 ABG Sodium 135.9 mmol/L (136.0-145.0) L 10/13/20 07:18 ABG Potassium 3.7 mmol/L (3.40-4.50) 10/13/20 07:18 ABG Chloride 111.0 mmol/L (98-107) H 10/13/20 07:18 ABG Glucose 109 mg/dL (65-95) H 10/13/20 07:18 VBG pH 6.949 (7.320-7.420) L* 10/02/20 Unknown Oxyhemoglobin 96.5 % (95.0-99.0) 10/26/20 10:30 Carboxyhemoglobin 0.3 (0.5-1.5) L 10/13/20 07:18 FiO2 25 % 10/26/20 10:30 Sodium 143 mmol/L (137-145) 01/09/21 04:27 Potassium 3.9 mmol/L (3.6-5.0) 01/09/21 04:27 Chloride 105.4 mmol/L (98-107) 01/09/21 04:27 Carbon Dioxide 25 mmol/L (22-30) 01/09/21 04:27 Anion Gap 17 mmol/L 01/09/21 04:27 BUN 9 mg/dL (7-17) 01/09/21 04:27 Creatinine 0.5 mg/dL (0.6-1.2) L 01/09/21 04:27 Estimated GFR > 60 ml/min 01/09/21 04:27 BUN/Creatinine Ratio 18 % 01/09/21 04:27 Glucose 98 mg/dL (65-100) 01/09/21 04:27 POC Glucose 110 mg/dL (70-105) H 01/13/21 05:48 Random Insulin 43.2 uIU/mL (<=19.6) H 11/02/20 19:19 Proinsulin See scanned result 11/02/20 19:19 C-Peptide 6.23 ng/mL (0.80-3.85) H 11/02/20 19:19 Lactic Acid 1.90 mmol/L (0.7-2.0) 10/04/20 22:00 Uric Acid 7.5 mg/dL (3.5-7.6) 10/02/20 13:05 Calcium 9.4 mg/dL (8.4-10.2) 01/09/21 04:27 Ionized Calcium 4.4 mg/dL (4.8-5.6) L 10/07/20 21:00 Phosphorus 4.60 mg/dL (2.5-4.5) H 11/13/20 10:05 Magnesium 2.10 mg/dL (1.7-2.3) 11/13/20 10:05 Total Bilirubin 0.40 mg/dL (0.1-1.2) 12/22/20 11:03 AST 45 units/L (5-40) H 12/22/20 11:03 ALT 33 units/L (7-56) 12/22/20 11:03 Alkaline Phosphatase 100 units/L (35-129) 12/22/20 11:03 Lactate Dehydrogenase 769 units/L (91-180) H 10/02/20 13:05 C-Reactive Protein 0.70 mg/dL (0.00-1.30) 11/11/20 13:50 NT-Pro-B Natriuret Pep 2788 pg/mL (0-450) H 10/04/20 10:00 Total Protein 7.5 g/dL (6.3-8.2) 12/22/20 11:03 Albumin 3.8 g/dL (3.9-5) L 12/22/20 11:03 Albumin/Globulin Ratio 1.0 % 12/22/20 11:03 Procalcitonin < 0.05 ng/mL (<0.15) 12/27/20 20:16 Arterial Blood Glucose 109 mg/dL (65-95) H 10/13/20 07:18 Arterial Blood Ionized Calcium 4.6 mg/dL (4.6-5.3) 10/13/20 07:18 Urine Color Kelsey (Yellow) 12/27/20 22:25 Urine Turbidity Cloudy (Clear) 12/27/20 22:25 Urine pH 7.0 (5.0-7.0) 12/27/20 22:25 Ur Specific [place] 1.018 (1.003-1.030) 12/27/20 22:25 Urine Protein 30 mg/dl mg/dL (Negative) 12/27/20 22:25 Urine Glucose (UA) Neg mg/dL (Negative) 12/27/20 22:25 Urine Ketones Neg mg/dL (Negative) 12/27/20 22:25 Urine Blood Sm (Negative) 12/27/20 22:25 Urine Nitrite Pos (Negative) 12/27/20 22:25 Urine Bilirubin Neg (Negative) 12/27/20 22:25 Urine Urobilinogen 2.0 mg/dL (<2.0) 12/27/20 22:25 Ur Leukocyte Esterase Lg (Negative) 12/27/20 22:25 Urine WBC (Auto) 5.0 /HPF (0.0-6.0) 12/27/20 22:25 Urine RBC (Auto) 22.0 /HPF (0.0-6.0) 12/27/20 22:25 U Epithel Cells (Auto) 16.0 /HPF (0-13.0) H 12/27/20 22:25 Urine Bacteria (Auto) 4+ /HPF (Negative) 12/27/20 22:25 Urine WBC Clumps 3+ /HPF 11/11/20 13:50 Calcium Oxalate Crystal Few 11/11/20 13:50 Urine Mucus 3+ /HPF 12/27/20 22:25 Urine Yeast (Budding) 2+ /HPF 12/10/20 09:25 Vancomycin Trough 12.6 ug/mL (5.0-20.0) 10/21/20 13:54 Random Vancomycin 10.7 ug/mL (0-40.0) 10/16/20 13:09 Phenytoin 5.7 ug/mL (10.0-20.0) L 10/13/20 07:00 C. difficile Tox (PCR) Positive (Negative) 10/16/20 10:22 Coronavirus (PCR) Negative (Negative) 10/08/20 14:15 Blood Type O POSITIVE 10/02/20 12:50 Antibody Screen Negative 10/02/20 12:50 Crossmatch See Detail 10/02/20 12:50 - Diagnostic Impressions Diagnostic Impressions: Echocardiogram 10/03/20 13:42 Transthoracic Echocardiogram Indication: S/P Cardiac Arrest R/O Cardiomyopathy BP: 133/71 Conclusions *Global left ventricular systolic function is normal. *The estimated ejection fraction is 60-65%. *There is trace of mitral regurgitation. *The right 0heart chambers are both slightly dilated. *There is mild tricuspid regurgitation. *There is mild-moderate pulmonary hypertension. *The right ventricular systolic pressure is calculated at 44 mmHg. *The study quality is technically difficult. Findings Procedure Info: The study quality is technically difficult. The study is technically limited due to patient body habitus. The study was technically limited due to the patient's inability to lay in the left lateral decubitus position. Left Ventricle: The left ventricular chamber size is normal. There is no left ventricular hypertrophy. Global left ventricular systolic function is normal. The estimated ejection fraction is 60-65%. Left Atrium: The left atrial chamber size is normal. Right Ventricle: The right ventricle is slightly dilated. Right Atrium: The right atrium is mildly dilated. Aortic Valve: The aortic valve leaflets are mildly thickened. There is no evidence of aortic regurgitation. There is no evidence of aortic stenosis. Mitral Valve: The mitral valve leaflets are mildly thickened. There is trace of mitral regurgitation. There is no evidence of mitral stenosis. Tricuspid Valve: There is mild tricuspid regurgitation. The right ventricular systolic pressure is calculated at 44 mmHg. There is evidence of mild pulmonary hypertension. Pulmonic Valve: There is trace pulmonic regurgitation. Pericardium: There is no pericardial effusion. Aorta: There is no dilatation of the ascending aorta. There is no dilatation of the aortic root. Venous: The inferior vena cava is dilated. Measurements Chambers 2D Name Value Normal Range IVSd (2D) 1 cm (0.6 - 1.1) LVPWd (2D) 1.01 cm (0.6 - 1.1) LVIDd (2D) 4.58 cm (3.7 - 5.6) LVIDs (2D) 3.17 cm (2 - 3.8) LV FS (2D) 30.93 % - EF Teichholz (2D) 58.66 % - Ao root diameter (2D) 2.94 cm (2 - 3.7) Volumes/Mass Name Value Normal Range LA ESV SP 4CH (A/L) 72.82 ml - LA ESV SP 2CH (A/L) 66.86 ml - LA ESV BP (A/L) 74.49 ml - LA ESV SP 4CH (MOD) 71.03 ml - LA ESV SP 2CH (MOD) 64.3 ml - LV EDV SP 4CH (MOD) 98.82 ml - LV ESV SP 4CH (MOD) 24.8 ml - EF SP 4CH (MOD) 74.9 % - LV EDV SP 2CH (MOD) 86.1 ml - LV ESV SP 2CH (MOD) 36.93 ml - EF SP 2CH (MOD) 57.11 % - LV EDV BP 94.4 ml - LV ESV BP 32.66 ml - BP EF (MOD) 65.4 % - Diastolic/Systolic Function Name Value Normal Range MV E-wave Vmax 1.04 m/sec - MV deceleration time 160.46 msec - MV A-wave Vmax 0.92 m/sec - MV E:A ratio 1.14 ratio - Aortic Valve Name Value Normal Range AV Vmax 2.12 m/sec - AV VTI 22.37 cm - AV peak gradient 17.95 mmHg - AV mean gradient 7.29 mmHg - LVOT diameter 2.01 cm - LVOT Vmax 1.8 m/sec - LVOT VTI 27.17 cm - LVOT peak gradient 12.91 mmHg - LVOT mean gradient 6.83 mmHg - SV LVOT 86.42 ml - ANITA (continuity Vmax) 2.7 cm2 - ANITA (continuity VTI) 3.86 cm2 - Ascending Ao 3.18 cm - Tricuspid Valve Name Value Normal Range TV E-wave Vmax 0.88 m/sec - TR Vmax 3.01 m/sec - TR peak gradient 36.27 mmHg - RAP 8 mmHg - RVSP 44 mmHg - IVC diameter 2.65 cm (1.2 - 2.3) Pulmonic Valve/Qp:Qs Name Value Normal Range PV Vmax 1.22 m/sec - PV peak gradient 5.91 mmHg - RVOT Vmax 0.87 m/sec - RVOT VTI 13.32 cm - RVOT peak gradient 3 mmHg - PV acceleration time 110.37 msec - [place]/IV: Voiding Method Incontinent IV Catheter Type [Right Foot] INT / Saline Lock IV Catheter Type [Left Forearm Peripheral IV ] IV Catheter Type [Left Wrist] INT / Saline Lock IV Catheter Type [Right Hand] INT / Saline Lock IV Catheter Type [Right INT / Saline Lock Antecubital] IV Catheter Type [Right Upper Mid-line arm] IV Catheter Type [Left Triple Lumen Cath Internal Jugular] IV Catheter Type [Left Hand] Peripheral IV IV Catheter Type [Left Peripheral IV Antecubital] Active Medications - Current Medications Current Medications: Generic Name Dose Route Start Last Admin Trade Name Freq PRN Reason Stop Dose Admin Acetaminophen 650 mg 10/05/20 16:34 01/10/21 22:48 Acetaminophen 325 Mg/10.15 Ml Oral Liqd Unit Dose FEEDTUBE 650 mg Q6H PRN Administration Non Cardiac Pain or Temp>100.5 Albuterol 2.5 mg 11/05/20 13:03 11/06/20 13:04 Albuterol 2.5 Mg/3 Ml Nebu IH 2.5 mg Q4HRT PRN Administration Shortness Of Breath Lipase/Protease/Amylase 1 each 10/05/20 11:09 Lipase 10,500/Protease 25,000/Amylase 43,750 (Units) Dr Barakat FEEDTUBE PRN PRN For Clogged Feeding Tube Enoxaparin Sodium 40 mg 10/22/20 10:00 01/12/21 11:28 Enoxaparin 40 Mg/0.4 Ml Inj SUB-Q 40 mg DAILY ERINN Administration Protocol Famotidine 20 mg 10/07/20 10:00 01/12/21 21:23 Famotidine 20 Mg Tab PO 20 mg BID ERINN Administration Hydralazine HCl 20 mg 10/07/20 11:49 10/17/20 07:20 Hydralazine 20 Mg/1 Ml Inj IV 20 mg Q6H PRN Administration SBP >170 Hydrophilic Ointment 1 applic 01/03/21 13:00 Lip Therapy Vaseline TP DIRECT PRN Dry Lips Dextrose 1,000 mls @ 30 mls/hr 01/03/21 12:00 01/12/21 21:25 D5w IV 75 mls/hr DIRECT ERINN Administration Metoprolol Tartrate 25 mg 01/08/21 22:00 01/12/21 21:23 Metoprolol Tartrate 25 Mg Tab PO Not Given BID ERINN Polyethylene Glycol 17 gm 12/27/20 15:07 12/28/20 10:05 Polyethylene Glycol 3350 17 Gm Powder PO 17 gm QDAY PRN Administration Constipation Simple Syrup 15 ml 10/05/20 11:09 Simple Syrup 15 Ml FEEDTUBE PRN PRN Hypoglycemia Simple Syrup 30 ml 10/05/20 11:09 Simple Syrup 15 Ml FEEDTUBE PRN PRN Hypoglycemia Sodium Bicarbonate 325 mg 10/05/20 11:09 12/16/20 08:19 Sodium Bicarbonate 325 Mg Tab FEEDTUBE 325 mg PRN PRN Administration For Clogged Feeding Tube Nutrition/Malnutrition Assess - Dietary Evaluation Nutrition/Malnutrition Findings: Nutrition Notes Start: 10/04/20 11:13 Freq: Status: Active Protocol: Document 01/11/21 15:00 BREANNA (Rec: 01/11/21 15:07 BREANNA [id number]) Nutrition Notes Initial or Follow up Reassessment Current Diagnosis Respiratory Failure Other Pertinent Diagnosis C-Diff, s/p OH, s/p and supracervical hysterectomy Current Diet TF - Jevity 1.2 at 60 mL/hr Labs/Tests Na 143 (01/09) Pertinent Medications D5W at 30ml/hr Height 5 ft 8 in Weight 88.6 kg [place] Body Weight (kg) 63.63 BMI 29.7 Weight Status Overweight Subjective/Other Information Spoke with RN via phone at 14: 48. Pt tolerating TF at goal rate; receives 100ml water flush q4h. Pt awaiting placement. Percent of energy/protein needs met: 87% energy 100% pro Burn Absent Trauma Absent #2 Nutrition Diagnosis Malnutrition Diagnosis Progress(for reassessment Continues documentation) #1 Nutrition Diagnosis Inadequate oral intake Diagnosis Progress(for reassessment Continues documentation) Is patient on ventilator? No Is Patient Ambulatory and/or Out of Bed No REE-([place]-[facility] Jeor-confined to bed) 1974.404 Calculation [facility] Pro needs 0.8-1g/k-89g/ day Fluid needs 1ml/kcal Nutrition Intervention Nutrition Support: Continue Jevity 1.2 at 60ml/hr . Flush 100ml q4h. Kcal 1,728 Protein (gm) 80 Fluid (mL) 1,162 Goal #1 TF tolerance Goal #2 TF to meet at least 75% energy and pro needs Follow-Up By: 01/18/21 Additional Comments F/U: stable TF, wt
[2021-01-13] MEDS: FAMOTIDINE 20 MG TAB PO SCH ×2 (10:10→22:56)
[2021-01-13] MEDS: ENOXAPARIN 40 MG/0.4 ML INJ SUB-Q SCH (10:10)
[2021-01-13] MEDS: METOPROLOL TARTRATE 25 MG TAB PO SCH ×2 (10:10→22:57)
[2021-01-14] MEDS: DEXTROSE 5% IN WATER 1,000 ML IV SCH (06:08)
--- NOTE | 2021-01-14 09:00 | Progress Note ---
Assessment and Plan Assessment and plan: --DIC (disseminated intravascular coagulation) vs HELLP syndrome Resolved --Possible Eclampsia/HELLP Syndrome Resolved --s/p Cardiac arrest x2 on admission and on 10/07 ACLS protocol followed by revival Echo showed preserved Ef --Anoxic brain injury, Developed following cardiac arrest, continue supportive care --Shock-resolved now awaiting placement s/p pressor support --ADOLPH-resolved Stable --Sepsis 2/2 UTI s/p cefepime to cover possible pseudomonas as sputum is also growing GN rods till 01/04/21 Previous urine culture grew pansensitive ecoli Blood cultures from 12/27-no growth --Hypernatremia, resolved, cont free water with TF --DVT prophylaxis Patient presented with DIC No anticoagulants Overall prognosis extremely poor. Daily clinical course 10/02/21 11:30: Pt brought to L&D triage for evaluation of possible labor. Pt accompanied by her spouse. Pt spouse poor historian; unable to obtain history- allergies at this time. Pt taken from registration to triage area via WC. Pt unresponsive, actively seizing with snorous respirations. sewer hand, Kassy, called and requesting assistance. 11:35: Multiple staff at bedside. Pt 02 sat 67% on nonrebreather, unable to read BP at this time. Yifan Theodore CRNA, at bedside for intubation and assistance with IV insertion. INT attempt by multiple RNs unsuccessful at this time. 11:42: Pt being bagged by KORIN, 02% 79%. No pulse palpated, compressions started at this time; bharati young called and Dr. Newberry preparing OR for emergent c/s. 11:44: Continued compressions on stretcher while transporting pt to OR 1. Pt being bagged with jaw thrust manuever in place by KORIN Stringer student. 11:45: Arrival to OR 1. Dr. Newberry and Dr. Portillo present for emergent c/s. Code team arrived for continued care. patient revived and c/s done Patient has been bleeding from C/s site followed by supracervical hysterectomy for severe bleeding Patient transfused multiple units of PRBC, Patient in DIC. Transferred to the [facility] 10/03. Patient seen and examined at bedside this morning. Patient is nonresponsive and mechanically ventilated. On pressors. Labs reviewed-has leukocytosis, anemia, thrombocytopenia, ADOLPH and lactic acidosis. Started on IV antibiotics to cover possible sepsis secondary to DIC. Hematology oncology recommendations appreciated-needs additional cryoprecipitate and FFP. Monitor D-dimer, fibrinogen and frequent labs. Nephrology consulted for lactic acidosis and ADOLPH. 10/04. Remains mechanically ventilated. Wiergate antibiotics. Labs shows improved acidosis - lactic acid 3.5. Hb drop noted. Getting transfused 2 units PRBCs. Platelet count is ~40k. Continue to monitor labs closely. Critical care team on board. 10/05; xray reviewed, concerning for multifocal infilrate, likely underlying Pne umonia, will add ID consult to assist with management of this critically ill patient, start tube feed, closely monitor renal system 10/06: Resumed care, remains on mechanical ventilation. No active bleeding, H&H stable. Continue to monitor CBC and BMP. Continue IV antibiotic for underlying pneumonia. Follow critical care and ID recommendation. 10/07: Remains on mechanical ventilation. No active bleeding, H&H stable. Critical care following, wean off ventilation as tolerated. 10/08: Patient had another cardiac arrest last night. Remains on mechanical ventilation, update family. Continue supportive care -poor prognosis 10/09: Called patient mother and discussed about patient care and management. Answered all question to best of my knowledge and family satisfaction. Patient remains on mechanical ventilation, cardiac arrest x2 so far. Critically sick, poor prognosis 10/10: remains on mechanical ventilation. h/h stable, no active bleeding. monitor CBC/BMP 10/11: WBC trended up with diarrhea, started on vancomycin po. remains on MV, off pressor, tolerating TF 10/12: remains on MV, off pressor, tolerating TF. called family for update but unable to reach, could not leave message as it was full. cont supportive care, wean off vent as tolerated. 10/13/2020; patient is on mechanical ventilation, tolerating tube feeding. Patient has labored breathing. Neuro was consulted and recommend MRI. Patient is on Precedex. Rectal tube in place. 10/14/2020; patient is on mechanical ventilation, Precedex. Patient had fever and blood culture ordered. Patient is on IV vancomycin per ID recommendation. Neuro consulted and recommend MRI. Continue to monitor. Prognosis is guarded. 10/15/2020; patient is on mechanical ventilation, Precedex. Patient had fever and blood culture ordered. Patient is on IV vancomycin per ID recommendation. Neuro consulted and recommend MRI. Continue to monitor. Prognosis is guarded. 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 12/06/20; anoxic brain injury. Awaiting placement. 12/07/2020; anoxic brain injury, awaiting placement. 12/09/2020; anoxic brain injury, awaiting placement. 12/10/2020; patient had episodes of fever overnight. CBC, BMP, blood culture, UA and chest x-ray ordered, will follow and manage accordingly. Urinalysis is suggestive of UTI and I put the patient on ceftriaxone, order urine culture. Chest x-ray is normal. 12/11/2020; patient is on ceftriaxone day 2 for UTI. We will continue to follow urine culture. 12/12/2020. Day #3 of Rocephin for UTI. We will continue for 2 more days while she is here. Present UTI. 12/13/2020. Day #4 of Rocephin for UTI. Patient remains on 50% with tracheost jayne. Remains unresponsive with evidence of anoxic encephalopathy unable to make needs known. 12/14/2020. Day #5 of Rocephin for UTI completed today. Remains encephalopathic unable to make needs known. Remains on 50% unable to decrease oxygen via tracheostomy. Overall prognosis remains extremely poor. 3: Continue to monitor. Stop and monitor antibiotics at this time. Continue to wean oxygen as tolerated. Wean oxygen as tolerated. Case management working on placement. 12/16: Continue supportive care aspiration precautions. Awaiting placement discussion. Monitor fever curve. Prognosis remains poor no evidence of neurological recovery as of today 3: Continue supportive care, check labs and chest xray. Still monitor off antibiotics. Monitor Sodium level 12/18: Patient remains with intermittent low grade fever, reviewed EEG from September again, consistent for Ischemic Hypoxic Encephalopathy, patient with decorticating posturing type presentation. Will discuss with photo checker and assembler to opt imize diet so we can discontinue D5. CXR with no abnormality. Discussed extensively with the nursing staff at bedside CXR IMPRESSION: 1. No acute findings. 12/19: No clinical change 12/20: No clinical change, now off abx, monitor, discussed her medications with our pharmacist I believe that her posture and rigidity is likely from underlying anoxic encephalopathy. Continue to monitor and await placement decision. Continue aggressive suctioning. Plan discussed in detail with the nursing staff 12/21: Continue supportive care. Will give 500 cc bolus of fluid today to replace insensible losses. Tachycardia appears to be improving. Blood pressure precludes adjusting cardiac meds. Still awaiting placement from case management. Plan discussed in detail with the nursing staff 12/22. Continue support supportive care. Tracheostomy and PEG in place. Remains nonresponsive. Awaiting placement. 12/23. Continue support supportive care. Tracheostomy and PEG in place. Remains nonresponsive. Awaiting placement. Remains tachycardic. Decrease dose of lasix. Will try low dose metoprolol. Monitor BP closely 12/24. Continue support supportive care. Tracheostomy and PEG in place. Remains nonresponsive. Awaiting placement. Heart rate slightly better. Continue to monitor BP closely 12/25. Continue support supportive care. Tracheostomy and PEG in place. Remains nonresponsive. Awaiting placement. 12/26. Continue support supportive care. Tracheostomy and PEG in place. Remains nonresponsive. Awaiting placement 12/27. Continue support supportive care. Tracheostomy and PEG in place. Remains nonresponsive. Awaiting placement 12/28. Had fever yesterday. Blood culture drawn. UA - UTI - started on antibiotics. Now tracheal aspirate is growing GN rods. 12/29: Continue IV antibiotics, continue supportive care. Since admission patient has shown minimal or no chance of neurological recovery. Need 24/7 assistance. Currently on trach and PEG, nonverbal. Waiting on SNF placement. Discussed with assistant case manager today. 12/30: Continue IV antibiotics for UTI, continue supportive care. Pending placement 12/31: continue supportive care. continue supportive care. Pending placement 01/01: continue supportive care. Pending placement. cont Iv abx for UTI till 01/04 01/02: Continue supportive care, pending placement. Sodium level slightly elevated, will start hypotonic fluid. Continue antibiotics till 01/04 01/03; cont hypotonic fluid, increase free water with TF for hypernatremia, follow BMP. cont supportive care. pending placement. cont cefepime. recx blood 01/04: resolved hyponatremia, cont supportive care, pending placement. Last day of supplement today. 01/05: Continue supportive care, pending placement. Monitor H&H and fever curve off antibiotic. 01/06; monitor off abx, suction as needed, Continue supportive care, pending placement. 01/07: Discharge pending on placement, vitals stable. Continue supportive care 01/08: Discharge pending on placement, vitals stable. Continue supportive care. stop lasix, increase metoprolol to 25mg BID for ST. 01/09 patient resting with eyes closed. Opens eyes to tactile stimulus, has a blink reflex, does not follow simple commands, has a T-collar / G-tube Lab results reviewed, low-grade fever, 01/10 Eyes open, does not follow simple commands, no acute events overnight 01/11 no acute events overnight Waiting for placement 01/12 No acute events overnight. Patient awaiting for placement 01/13. No new issues. Awaiting placement 01/14. No new issues. Awaiting placement. History Interval history: 30 year old -[place] female HCE 10/25/20 at 36w5d who presents with seizures in triage on 10/02/20. Pt was not able to provide history but per pt's , she presented to the hospital to return a 24 hour urine specimen for analysis. She then suddenly reported that she did not feel good. She was taken to labor and delivery and shortly after arrival, she began seizing. During this time, a code met was called because the patient became hypoxic. She was then noted to be without a pulse. Chest compressions were started immediately, and the patient was emergently taken to the operating room for delivery of the fetus. Off note, This patient has had care at [facility] with comanagement by [facility] since 11 wks complicated by ADHD, morbid obesity, generalized anxiety disorder, panic attacks, chronic narcotic use, fibromyalgia, GERD, Irritable Bowel Syndrome, Migraines, h/o endometrial ablation and ovarian vein embolization, genital herpes, insomnia, LGA fetus, nausea and vomiting, polyhydramnios, quad screen positive for Down's Syndrome, and previous x 3. She was GBS negative. Hospitalist Physical - Constitutional Vitals: Temp Pulse Resp BP Pulse Ox 98.2 F 102 H 18 104/63 99 01/14/21 06:19 01/14/21 06:19 01/14/21 06:19 01/14/21 06:19 01/14/21 06:19 General appearance: Present: other (Persistent vegetative state) - EENT Eyes: Present: PERRL, EOM intact ENT: hearing intact, clear oral mucosa, dentition normal - Neck Neck: Present: supple, normal ROM - Respiratory Respiratory effort: normal Respiratory: bilateral: CTA - Cardiovascular Rhythm: regular Heart Sounds: Present: S1 & S2. Absent: gallop, rub - Extremities Extremities: no ischemia, No edema, Full ROM - Abdominal General gastrointestinal: soft, non-tender, non-distended, normal bowel sounds - Integumentary Integumentary: Present: clear, warm, dry - Neurologic Neurologic: CNII-XII intact, moves all extremities HEART Score - HEART Score Age: < 45 Risk factors: 1-2 risk factors - Critical Actions Critical Actions: >7 pts:50-65% risk of adverse cardiac event. Early invasive measures Results - Labs CBC & Chem 7: 01/09/21 04:27 01/09/21 04:27 Labs: Laboratory Last Values WBC 8.7 K/mm3 (4.5-11.0) 01/09/21 04:27 RBC 5.22 M/mm3 (3.65-5.03) H 01/09/21 04:27 Hgb 12.9 gm/dl (10.1-14.3) 01/09/21 04:27 Hgb Comment See scanned result 10/04/20 Unknown Hct 39.7 % (30.3-42.9) 01/09/21 04:27 MCV 76 fl (79-97) L 01/09/21 04:27 MCH 25 pg (28-32) L 01/09/21 04:27 MCHC 32 % (30-34) 01/09/21 04:27 RDW 14.4 % (13.2-15.2) 01/09/21 04:27 Plt Count 210 K/mm3 (140-440) 01/09/21 04:27 Lymph % (Auto) 25.8 % (13.4-35.0) 01/09/21 04:27 Hubbard % (Auto) 9.7 % (0.0-7.3) H 01/09/21 04:27 Eos % (Auto) 1.1 % (0.0-4.3) 01/09/21 04:27 Baso % (Auto) 0.4 % (0.0-1.8) 01/09/21 04:27 Lymph # (Auto) 2.2 K/mm3 (1.2-5.4) 01/09/21 04:27 Hubbard # (Auto) 0.8 K/mm3 (0.0-0.8) 01/09/21 04:27 Eos # (Auto) 0.1 K/mm3 (0.0-0.4) 01/09/21 04:27 Baso # (Auto) 0.0 K/mm3 (0.0-0.1) 01/09/21 04:27 Add Manual Diff Complete 12/10/20 09:37 Total Counted 100 12/10/20 09:37 Seg Neutrophils % 63.0 % (40.0-70.0) 01/09/21 04:27 Seg Neuts % (Manual) 81.0 % (40.0-70.0) H 12/10/20 09:37 Band Neutrophils % 2.0 % 10/15/20 05:50 Lymphocytes % (Manual) 17.0 % (13.4-35.0) 12/10/20 09:37 Reactive Lymphs % (Man) 1.0 % 10/02/20 12:18 Monocytes % (Manual) 2.0 % (0.0-7.3) 12/10/20 09:37 Eosinophils % (Manual) 1.0 % (0.0-4.3) 10/29/20 07:56 Myelocytes % 2.0 % 10/02/20 13:05 Metamyelocytes % 1.0 % 10/14/20 04:00 Nucleated RBC % Not Reportable 12/10/20 09:37 Seg Neutrophils # 5.5 K/mm3 (1.8-7.7) 01/09/21 04:27 Seg Neutrophils # Man 10.1 K/mm3 (1.8-7.7) H 12/10/20 09:37 Band Neutrophils # 0.0 K/mm3 12/10/20 09:37 Lymphocytes # (Manual) 2.1 K/mm3 (1.2-5.4) 12/10/20 09:37 Abs React Lymphs (Man) 0.0 K/mm3 12/10/20 09:37 Monocytes # (Manual) 0.3 K/mm3 (0.0-0.8) 12/10/20 09:37 Eosinophils # (Manual) 0.0 K/mm3 (0.0-0.4) 12/10/20 09:37 Basophils # (Manual) 0.0 K/mm3 (0.0-0.1) 12/10/20 09:37 Metamyelocytes # 0.0 K/mm3 12/10/20 09:37 Myelocytes # 0.0 K/mm3 12/10/20 09:37 Promyelocytes # 0.0 K/mm3 12/10/20 09:37 Blast Cells # 0.0 K/mm3 12/10/20 09:37 WBC Morphology Not Reportable 12/10/20 09:37 Hypersegmented Neuts Not Reportable 12/10/20 09:37 Hyposegmented Neuts Not Reportable 12/10/20 09:37 Hypogranular Neuts Not Reportable 12/10/20 09:37 Smudge Cells Not Reportable 12/10/20 09:37 Toxic Granulation Not Reportable 12/10/20 09:37 Toxic Vacuolation Not Reportable 12/10/20 09:37 Dohle Bodies Not Reportable 12/10/20 09:37 Pelger-Huet Anomaly Not Reportable 12/10/20 09:37 Ester Rods Not Reportable 12/10/20 09:37 Platelet Estimate Consistent w auto 12/10/20 09:37 Clumped Platelets Not Reportable 12/10/20 09:37 Plt Clumps, EDTA Not Reportable 12/10/20 09:37 Large Platelets Not Reportable 12/10/20 09:37 Giant Platelets Not Reportable 12/10/20 09:37 Platelet Satelliting Not Reportable 12/10/20 09:37 Plt Morphology Comment Not Reportable 12/10/20 09:37 RBC Morphology Normal 12/10/20 09:37 Dimorphic RBCs Not Reportable 12/10/20 09:37 Polychromasia Not Reportable 12/10/20 09:37 Hypochromasia 1+ 12/10/20 09:37 Poikilocytosis Not Reportable 12/10/20 09:37 Anisocytosis Not Reportable 12/10/20 09:37 Microcytosis Not Reportable 12/10/20 09:37 Macrocytosis Not Reportable 12/10/20 09:37 Spherocytes Not Reportable 12/10/20 09:37 Pappenheimer Bodies Not Reportable 12/10/20 09:37 Sickle Cells Not Reportable 12/10/20 09:37 Target Cells Not Reportable 12/10/20 09:37 Tear Drop Cells Not Reportable 12/10/20 09:37 Ovalocytes Not Reportable 12/10/20 09:37 Stomatocytes Few 10/14/20 04:00 Helmet Cells Not Reportable 12/10/20 09:37 Burk-Central Pacolet Bodies Not Reportable 12/10/20 09:37 Nenana Rings Not Reportable 12/10/20 09:37 Antoine Cells Not Reportable 12/10/20 09:37 Bite Cells Not Reportable 12/10/20 09:37 Crenated Cell Not Reportable 12/10/20 09:37 Elliptocytes Not Reportable 12/10/20 09:37 Acanthocytes (Spur) Not Reportable 12/10/20 09:37 Rouleaux Not Reportable 12/10/20 09:37 Hemoglobin C Crystals Not Reportable 12/10/20 09:37 Schistocytes Not Reportable 12/10/20 09:37 Malaria parasites Not Reportable 12/10/20 09:37 Sickle Cell Solubility See scanned result 10/04/20 Unknown Hemoglobin A See scanned result 10/04/20 Unknown Hemoglobin A2 See scanned result 10/04/20 Unknown Hemoglobin A2 Prime See scanned result 10/04/20 Unknown Hemoglobin C See scanned result 10/04/20 Unknown Hemoglobin D See scanned result 10/04/20 Unknown Hemoglobin E See scanned result 10/04/20 Unknown Hgb F Diffential Stain See scanned result 10/04/20 Unknown Hemoglobin F Quant See scanned result 10/04/20 Unknown Hemoglobin G See scanned result 10/04/20 Unknown Hemoglobin S See scanned result 10/04/20 Unknown Hemoglobin O-[place] See scanned result 10/04/20 Unknown Hemoglobin Barts See scanned result 10/04/20 Unknown Hemoglobin Analilia See scanned result 10/04/20 Unknown Variant Hemoglobin See scanned result 10/04/20 Unknown Abnorm Hgb IEF Confirm See scanned result 10/04/20 Unknown Hemoglobin Interpret See scanned result 10/04/20 Unknown Hemoglobinopathy Note See scanned result 10/04/20 Unknown Sharad Bodies Not Reportable 12/10/20 09:37 Hem Pathologist Commnt No 12/10/20 09:37 PT 13.6 Sec. (12.2-14.9) 10/21/20 13:54 INR 1.06 (0.87-1.13) 10/21/20 13:54 APTT 31.6 Sec. (24.2-36.6) 10/03/20 00:40 Fibrinogen 336 mg/dl (211-480) 10/04/20 10:00 D-Dimer 1974.47 ng/mlDDU (0-234) H 11/11/20 13:50 ABG pH 7.459 pH Units (7.350-7.450) H 10/26/20 10:30 POC ABG pCO2 20.7 mmHg (32.0-48.0) L 10/13/20 07:18 ABG pCO2 32.4 mm Hg 10/26/20 10:30 POC ABG pO2 137.9 mmHg (83-108) H 10/13/20 07:18 ABG pO2 112.2 mm Hg (80.0-90.0) H 10/26/20 10:30 POC ABG HCO3 14.8 10/13/20 07:18 ABG HCO3 22.5 mmol/L (20.0-26.0) 10/26/20 10:30 ABG O2 Saturation 98.2 % (95.0-99.0) 10/26/20 10:30 ABG O2 Content 18.5 (0.0-44) 10/26/20 10:30 POC ABG Base Excess -6.9 10/13/20 07:18 ABG Base Excess -0.6 mmol/L (-2.0-3.0) 10/26/20 10:30 ABG Hemoglobin 13.5 gm/dl (12.0-16.0) 10/26/20 10:30 ABG Oxyhemoglobin 98.3 (94-98) H 10/13/20 07:18 ABG Carboxyhemoglobin 1.3 % (0.0-5.0) 10/26/20 10:30 ABG Methemoglobin 0.5 % (0.0-1.5) 10/26/20 10:30 ABG Sodium 135.9 mmol/L (136.0-145.0) L 10/13/20 07:18 ABG Potassium 3.7 mmol/L (3.40-4.50) 10/13/20 07:18 ABG Chloride 111.0 mmol/L (98-107) H 10/13/20 07:18 ABG Glucose 109 mg/dL (65-95) H 10/13/20 07:18 VBG pH 6.949 (7.320-7.420) L* 10/02/20 Unknown Oxyhemoglobin 96.5 % (95.0-99.0) 10/26/20 10:30 Carboxyhemoglobin 0.3 (0.5-1.5) L 10/13/20 07:18 FiO2 25 % 10/26/20 10:30 Sodium 143 mmol/L (137-145) 01/09/21 04:27 Potassium 3.9 mmol/L (3.6-5.0) 01/09/21 04:27 Chloride 105.4 mmol/L (98-107) 01/09/21 04:27 Carbon Dioxide 25 mmol/L (22-30) 01/09/21 04:27 Anion Gap 17 mmol/L 01/09/21 04:27 BUN 9 mg/dL (7-17) 01/09/21 04:27 Creatinine 0.5 mg/dL (0.6-1.2) L 01/09/21 04:27 Estimated GFR > 60 ml/min 01/09/21 04:27 BUN/Creatinine Ratio 18 % 01/09/21 04:27 Glucose 98 mg/dL (65-100) 01/09/21 04:27 POC Glucose 104 mg/dL (70-105) 01/13/21 22:58 Random Insulin 43.2 uIU/mL (<=19.6) H 11/02/20 19:19 Proinsulin See scanned result 11/02/20 19:19 C-Peptide 6.23 ng/mL (0.80-3.85) H 11/02/20 19:19 Lactic Acid 1.90 mmol/L (0.7-2.0) 10/04/20 22:00 Uric Acid 7.5 mg/dL (3.5-7.6) 10/02/20 13:05 Calcium 9.4 mg/dL (8.4-10.2) 01/09/21 04:27 Ionized Calcium 4.4 mg/dL (4.8-5.6) L 10/07/20 21:00 Phosphorus 4.60 mg/dL (2.5-4.5) H 11/13/20 10:05 Magnesium 2.10 mg/dL (1.7-2.3) 11/13/20 10:05 Total Bilirubin 0.40 mg/dL (0.1-1.2) 12/22/20 11:03 AST 45 units/L (5-40) H 12/22/20 11:03 ALT 33 units/L (7-56) 12/22/20 11:03 Alkaline Phosphatase 100 units/L (35-129) 12/22/20 11:03 Lactate Dehydrogenase 769 units/L (91-180) H 10/02/20 13:05 C-Reactive Protein 0.70 mg/dL (0.00-1.30) 11/11/20 13:50 NT-Pro-B Natriuret Pep 2788 pg/mL (0-450) H 10/04/20 10:00 Total Protein 7.5 g/dL (6.3-8.2) 12/22/20 11:03 Albumin 3.8 g/dL (3.9-5) L 12/22/20 11:03 Albumin/Globulin Ratio 1.0 % 12/22/20 11:03 Procalcitonin < 0.05 ng/mL (<0.15) 12/27/20 20:16 Arterial Blood Glucose 109 mg/dL (65-95) H 10/13/20 07:18 Arterial Blood Ionized Calcium 4.6 mg/dL (4.6-5.3) 10/13/20 07:18 Urine Color Kelsey (Yellow) 12/27/20 22:25 Urine Turbidity Cloudy (Clear) 12/27/20 22:25 Urine pH 7.0 (5.0-7.0) 12/27/20 22:25 Ur Specific Carson 1.018 (1.003-1.030) 12/27/20 22:25 Urine Protein 30 mg/dl mg/dL (Negative) 12/27/20 22:25 Urine Glucose (UA) Neg mg/dL (Negative) 12/27/20 22:25 Urine Ketones Neg mg/dL (Negative) 12/27/20 22:25 Urine Blood Sm (Negative) 12/27/20 22:25 Urine Nitrite Pos (Negative) 12/27/20 22:25 Urine Bilirubin Neg (Negative) 12/27/20 22:25 Urine Urobilinogen 2.0 mg/dL (<2.0) 12/27/20 22:25 Ur Leukocyte Esterase Lg (Negative) 12/27/20 22:25 Urine WBC (Auto) 5.0 /HPF (0.0-6.0) 12/27/20 22:25 Urine RBC (Auto) 22.0 /HPF (0.0-6.0) 12/27/20 22:25 U Epithel Cells (Auto) 16.0 /HPF (0-13.0) H 12/27/20 22:25 Urine Bacteria (Auto) 4+ /HPF (Negative) 12/27/20 22:25 Urine WBC Clumps 3+ /HPF 11/11/20 13:50 Calcium Oxalate Crystal Few 11/11/20 13:50 Urine Mucus 3+ /HPF 12/27/20 22:25 Urine Yeast (Budding) 2+ /HPF 12/10/20 09:25 Vancomycin Trough 12.6 ug/mL (5.0-20.0) 10/21/20 13:54 Random Vancomycin 10.7 ug/mL (0-40.0) 10/16/20 13:09 Phenytoin 5.7 ug/mL (10.0-20.0) L 10/13/20 07:00 C. difficile Tox (PCR) Positive (Negative) 10/16/20 10:22 Coronavirus (PCR) Negative (Negative) 10/08/20 14:15 Blood Type O POSITIVE 10/02/20 12:50 Antibody Screen Negative 10/02/20 12:50 Crossmatch See Detail 10/02/20 12:50 - Diagnostic Impressions Diagnostic Impressions: Echocardiogram 10/03/20 13:42 Transthoracic Echocardiogram Indication: S/P Cardiac Arrest R/O Cardiomyopathy BP: 133/71 Conclusions *Global left ventricular systolic function is normal. *The estimated ejection fraction is 60-65%. *There is trace of mitral regurgitation. *The right 0heart chambers are both slightly dilated. *There is mild tricuspid regurgitation. *There is mild-moderate pulmonary hypertension. *The right ventricular systolic pressure is calculated at 44 mmHg. *The study quality is technically difficult. Findings Procedure Info: The study quality is technically difficult. The study is technically limited due to patient body habitus. The study was technically limited due to the patient's inability to lay in the left lateral decubitus position. Left Ventricle: The left ventricular chamber size is normal. There is no left ventricular hypertrophy. Global left ventricular systolic function is normal. The estimated ejection fraction is 60-65%. Left Atrium: The left atrial chamber size is normal. Right Ventricle: The right ventricle is slightly dilated. Right Atrium: The right atrium is mildly dilated. Aortic Valve: The aortic valve leaflets are mildly thickened. There is no evidence of aortic regurgitation. There is no evidence of aortic stenosis. Mitral Valve: The mitral valve leaflets are mildly thickened. There is trace of mitral regurgitation. There is no evidence of mitral stenosis. Tricuspid Valve: There is mild tricuspid regurgitation. The right ventricular systolic pressure is calculated at 44 mmHg. There is evidence of mild pulmonary hypertension. Pulmonic Valve: There is trace pulmonic regurgitation. Pericardium: There is no pericardial effusion. Aorta: There is no dilatation of the ascending aorta. There is no dilatation of the aortic root. Venous: The inferior vena cava is dilated. Measurements Chambers 2D Name Value Normal Range IVSd (2D) 1 cm (0.6 - 1.1) LVPWd (2D) 1.01 cm (0.6 - 1.1) LVIDd (2D) 4.58 cm (3.7 - 5.6) LVIDs (2D) 3.17 cm (2 - 3.8) LV FS (2D) 30.93 % - EF Teichholz (2D) 58.66 % - Ao root diameter (2D) 2.94 cm (2 - 3.7) Volumes/Mass Name Value Normal Range LA ESV SP 4CH (A/L) 72.82 ml - LA ESV SP 2CH (A/L) 66.86 ml - LA ESV BP (A/L) 74.49 ml - LA ESV SP 4CH (MOD) 71.03 ml - LA ESV SP 2CH (MOD) 64.3 ml - LV EDV SP 4CH (MOD) 98.82 ml - LV ESV SP 4CH (MOD) 24.8 ml - EF SP 4CH (MOD) 74.9 % - LV EDV SP 2CH (MOD) 86.1 ml - LV ESV SP 2CH (MOD) 36.93 ml - EF SP 2CH (MOD) 57.11 % - LV EDV BP 94.4 ml - LV ESV BP 32.66 ml - BP EF (MOD) 65.4 % - Diastolic/Systolic Function Name Value Normal Range MV E-wave Vmax 1.04 m/sec - MV deceleration time 160.46 msec - MV A-wave Vmax 0.92 m/sec - MV E:A ratio 1.14 ratio - Aortic Valve Name Value Normal Range AV Vmax 2.12 m/sec - AV VTI 22.37 cm - AV peak gradient 17.95 mmHg - AV mean gradient 7.29 mmHg - LVOT diameter 2.01 cm - LVOT Vmax 1.8 m/sec - LVOT VTI 27.17 cm - LVOT peak gradient 12.91 mmHg - LVOT mean gradient 6.83 mmHg - SV LVOT 86.42 ml - ANITA (continuity Vmax) 2.7 cm2 - ANITA (continuity VTI) 3.86 cm2 - Ascending Ao 3.18 cm - Tricuspid Valve Name Value Normal Range TV E-wave Vmax 0.88 m/sec - TR Vmax 3.01 m/sec - TR peak gradient 36.27 mmHg - RAP 8 mmHg - RVSP 44 mmHg - IVC diameter 2.65 cm (1.2 - 2.3) Pulmonic Valve/Qp:Qs Name Value Normal Range PV Vmax 1.22 m/sec - PV peak gradient 5.91 mmHg - RVOT Vmax 0.87 m/sec - RVOT VTI 13.32 cm - RVOT peak gradient 3 mmHg - PV acceleration time 110.37 msec - [place]/IV: Voiding Method External Female Catheter IV Catheter Type [Right Foot] INT / Saline Lock IV Catheter Type [Left Forearm Peripheral IV ] IV Catheter Type [Left Wrist] INT / Saline Lock IV Catheter Type [Right Hand] INT / Saline Lock IV Catheter Type [Right INT / Saline Lock Antecubital] IV Catheter Type [Right Upper Mid-line arm] IV Catheter Type [Left Triple Lumen Cath Internal Jugular] IV Catheter Type [Left Hand] Peripheral IV IV Catheter Type [Left Peripheral IV Antecubital] Active Medications - Current Medications Current Medications: Generic Name Dose Route Start Last Admin Trade Name Freq PRN Reason Stop Dose Admin Acetaminophen 650 mg 10/05/20 16:34 01/10/21 22:48 Acetaminophen 325 Mg/10.15 Ml Oral Liqd Unit Dose FEEDTUBE 650 mg Q6H PRN Administration Non Cardiac Pain or Temp>100.5 Albuterol 2.5 mg 11/05/20 13:03 11/06/20 13:04 Albuterol 2.5 Mg/3 Ml Nebu IH 2.5 mg Q4HRT PRN Administration Shortness Of Breath Lipase/Protease/Amylase 1 each 10/05/20 11:09 Lipase 10,500/Protease 25,000/Amylase 43,750 (Units) Dr Barakat FEEDTUBE PRN PRN For Clogged Feeding Tube Enoxaparin Sodium 40 mg 10/22/20 10:00 01/13/21 10:10 Enoxaparin 40 Mg/0.4 Ml Inj SUB-Q 40 mg DAILY ERINN Administration Protocol Famotidine 20 mg 10/07/20 10:00 01/13/21 22:56 Famotidine 20 Mg Tab PO 20 mg BID ERINN Administration Hydralazine HCl 20 mg 10/07/20 11:49 10/17/20 07:20 Hydralazine 20 Mg/1 Ml Inj IV 20 mg Q6H PRN Administration SBP >170 Hydrophilic Ointment 1 applic 01/03/21 13:00 Lip Therapy Vaseline TP DIRECT PRN Dry Lips Dextrose 1,000 mls @ 30 mls/hr 01/03/21 12:00 01/14/21 06:08 D5w IV 75 mls/hr DIRECT ERINN Administration Metoprolol Tartrate 25 mg 01/08/21 22:00 01/13/21 22:57 Metoprolol Tartrate 25 Mg Tab PO 25 mg BID ERINN Administration Polyethylene Glycol 17 gm 12/27/20 15:07 12/28/20 10:05 Polyethylene Glycol 3350 17 Gm Powder PO 17 gm QDAY PRN Administration Constipation Simple Syrup 15 ml 10/05/20 11:09 Simple Syrup 15 Ml FEEDTUBE PRN PRN Hypoglycemia Simple Syrup 30 ml 10/05/20 11:09 Simple Syrup 15 Ml FEEDTUBE PRN PRN Hypoglycemia Sodium Bicarbonate 325 mg 10/05/20 11:09 12/16/20 08:19 Sodium Bicarbonate 325 Mg Tab FEEDTUBE 325 mg PRN PRN Administration For Clogged Feeding Tube Nutrition/Malnutrition Assess - Dietary Evaluation Nutrition/Malnutrition Findings: Nutrition Notes Start: 10/04/20 11: 13 Freq: Status: Active Protocol: Document 01/11/21 15:00 BREANNA (Rec: 01/11/21 15:07 BREANNA [id number]) Nutrition Notes Initial or Follow up Reassessment Current Diagnosis Respiratory Failure Other Pertinent Diagnosis C-Diff, s/p UT, s/p and supracervical hysterectomy Current Diet TF - Jevity 1.2 at 60 mL/hr Labs/Tests Na 143 (01/09) Pertinent Medications D5W at 30ml/hr Height 5 ft 8 in Weight 88.6 kg [place] Body Weight (kg) 63.63 BMI 29.7 Weight Status Overweight Subjective/Other Information Spoke with RN via phone at 14: 48. Pt tolerating TF at goal rate; receives 100ml water flush q4h. Pt awaiting placement. Percent of energy/protein needs met: 87% energy 100% pro Burn Absent Trauma Absent #2 Nutrition Diagnosis Malnutrition Diagnosis Progress(for reassessment Continues documentation) #1 Nutrition Diagnosis Inadequate oral intake Diagnosis Progress(for reassessment Continues documentation) Is patient on ventilator? No Is Patient Ambulatory and/or Out of Bed No REE-([facility]-confined to bed) 1975.404 Calculation Used for Recommendations [facility] Additional Notes Pro needs 0.8-1g/k-89g/ day Fluid needs 1ml/kcal Nutrition Intervention Nutrition Support: Continue Jevity 1.2 at 60ml/hr . Flush 100ml q4h. Kcal 1,728 Protein (gm) 80 Fluid (mL) 1,162 Goal #1 TF tolerance Goal #2 TF to meet at least 75% energy and pro needs Follow-Up By: 01/18/21 Additional Comments F/U: stable TF, wt
[2021-01-14] MEDS: METOPROLOL TARTRATE 25 MG TAB PO SCH ×2 (10:08→22:33)
[2021-01-14] MEDS: FAMOTIDINE 20 MG TAB PO SCH ×2 (10:08→21:43)
[2021-01-14] MEDS: ENOXAPARIN 40 MG/0.4 ML INJ SUB-Q SCH (10:08)
[2021-01-15] MEDS: METOPROLOL TARTRATE 25 MG TAB PO SCH ×2 (09:12→22:22)
[2021-01-15] MEDS: ENOXAPARIN 40 MG/0.4 ML INJ SUB-Q SCH (09:12)
[2021-01-15] MEDS: FAMOTIDINE 20 MG TAB PO SCH ×2 (09:13→21:37)
--- NOTE | 2021-01-15 09:13 | Progress Note ---
Assessment and Plan Assessment and plan: --DIC (disseminated intravascular coagulation) vs HELLP syndrome Resolved --Possible Eclampsia/HELLP Syndrome Resolved --s/p Cardiac arrest x2 on admission and on 10/07 ACLS protocol followed by revival Echo showed preserved Ef --Anoxic brain injury, Developed following cardiac arrest, continue supportive care --Shock-resolved now awaiting placement s/p pressor support --ADOLPH-resolved Stable --Sepsis 2/2 UTI s/p cefepime to cover possible pseudomonas as sputum is also growing GN rods till 01/04/21 Previous urine culture grew pansensitive ecoli Blood cultures from 12/27-no growth --Hypernatremia, resolved, cont free water with TF --DVT prophylaxis Patient presented with DIC No anticoagulants Overall prognosis extremely poor. Daily clinical course 10/02/21 11:30: Pt brought to L&D triage for evaluation of possible labor. Pt accompanied by her spouse. Pt spouse poor historian; unable to obtain history- allergies at this time. Pt taken from registration to triage area via WC. Pt unresponsive, actively seizing with snorous respirations. transformation specialist, Kassy, called and requesting assistance. 11:35: Multiple staff at bedside. Pt 02 sat 67% on nonrebreather, unable to read BP at this time. Yifan Theodore CRNA, at bedside for intubation and assistance with IV insertion. INT attempt by multiple RNs unsuccessful at this time. 11:42: Pt being bagged by KORIN, 02% 79%. No pulse palpated, compressions started at this time; bharati young called and Dr. Newberry preparing OR for emergent c/s. 11:44: Continued compressions on stretcher while transporting pt to OR 1. Pt being bagged with jaw thrust manuever in place by KORIN Stringer student. 11:45: Arrival to OR 1. Dr. Newberry and Dr. Portillo present for emergent c/s. Code team arrived for continued care. patient revived and c/s done Patient has been bleeding from C/s site followed by supracervical hysterectomy for severe bleeding Patient transfused multiple units of PRBC, Patient in DIC. Transferred to the [facility] 10/03. Patient seen and examined at bedside this morning. Patient is nonresponsive and mechanically ventilated. On pressors. Labs reviewed-has leukocytosis, anemia, thrombocytopenia, ADOLPH and lactic acidosis. Started on IV antibiotics to cover possible sepsis secondary to DIC. Hematology oncology recommendations appreciated-needs additional cryoprecipitate and FFP. Monitor D-dimer, fibrinogen and frequent labs. Nephrology consulted for lactic acidosis and ADOLPH. 10/04. Remains mechanically ventilated. [place] antibiotics. Labs shows improved acidosis - lactic acid 3.5. Hb drop noted. Getting transfused 2 units PRBCs. Platelet count is ~40k. Continue to monitor labs closely. Critical care team on board. 10/05; xray reviewed, concerning for multifocal infilrate, likely underlying P[place], will add ID consult to assist with management of this critically ill patient, start tube feed, closely monitor renal system 10/06: Resumed care, remains on mechanical ventilation. No active bleeding, H&H stable. Continue to monitor CBC and BMP. Continue IV antibiotic for underlying pneumonia. Follow critical care and ID recommendation. 10/07: Remains on mechanical ventilation. No active bleeding, H&H stable. Critical care following, wean off ventilation as tolerated. 10/08: Patient had another cardiac arrest last night. Remains on mechanical ventilation, update family. Continue supportive care -poor prognosis 10/09: Called patient mother and discussed about patient care and management. Answered all question to best of my knowledge and family satisfaction. Patient remains on mechanical ventilation, cardiac arrest x2 so far. Critically sick, poor prognosis 10/10: remains on mechanical ventilation. h/h stable, no active bleeding. monitor CBC/BMP 10/11: WBC trended up with diarrhea, started on vancomycin po. remains on MV, off pressor, tolerating TF 10/12: remains on MV, off pressor, tolerating TF. called family for update but unable to reach, could not leave message as it was full. cont supportive care, wean off vent as tolerated. 10/13/2020; patient is on mechanical ventilation, tolerating tube feeding. Patient has labored breathing. Neuro was consulted and recommend MRI. Patient is on Precedex. Rectal tube in place. 10/14/2020; patient is on mechanical ventilation, Precedex. Patient had fever and blood culture ordered. Patient is on IV vancomycin per ID recommendation. Neuro consulted and recommend MRI. Continue to monitor. Prognosis is guarded. 10/15/2020; patient is on mechanical ventilation, Precedex. Patient had fever and blood culture ordered. Patient is on IV vancomycin per ID recommendation. Neuro consulted and recommend MRI. Continue to monitor. Prognosis is guarded. 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 12/06/20; anoxic brain injury. Awaiting placement. 12/07/2020; anoxic brain injury, awaiting placement. 12/09/2020; anoxic brain injury, awaiting placement. 12/10/2020; patient had episodes of fever overnight. CBC, BMP, blood culture, UA and chest x-ray ordered, will follow and manage accordingly. Urinalysis is suggestive of UTI and I put the patient on ceftriaxone, order urine culture. Chest x-ray is normal. 12/11/2020; patient is on ceftriaxone day 2 for UTI. We will continue to follow urine culture. 12/12/2020. Day #3 of Rocephin for UTI. We will continue for 2 more days while she is here. Present UTI. 12/13/2020. Day #4 of Rocephin for UTI. Patient remains on 50% with tracheost jayne. Remains unresponsive with evidence of anoxic encephalopathy unable to make needs known. 12/14/2020. Day #5 of Rocephin for UTI completed today. Remains encephalopathic unable to make needs known. Remains on 50% unable to decrease oxygen via tracheostomy. Overall prognosis remains extremely poor. 3: Continue to monitor. Stop and monitor antibiotics at this time. Continue to wean oxygen as tolerated. Wean oxygen as tolerated. Case management working on placement. 12/16: Continue supportive care aspiration precautions. Awaiting placement discussion. Monitor fever curve. Prognosis remains poor no evidence of neurological recovery as of today 3: Continue supportive care, check labs and chest xray. Still monitor off antibiotics. Monitor Sodium level 12/18: Patient remains with intermittent low grade fever, reviewed EEG from September again, consistent for Ischemic Hypoxic Encephalopathy, patient with decorticating posturing type presentation. Will discuss with car repairer to opt imize diet so we can discontinue D5. CXR with no abnormality. Discussed extensively with the nursing staff at bedside CXR IMPRESSION: 1. No acute findings. 12/19: No clinical change 12/20: No clinical change, now off abx, monitor, discussed her medications with our pharmacist I believe that her posture and rigidity is likely from underlying anoxic encephalopathy. Continue to monitor and await placement decision. Continue aggressive suctioning. Plan discussed in detail with the nursing staff 12/21: Continue supportive care. Will give 500 cc bolus of fluid today to replace insensible losses. Tachycardia appears to be improving. Blood pressure precludes adjusting cardiac meds. Still awaiting placement from case management. Plan discussed in detail with the nursing staff 12/22. Continue support supportive care. Tracheostomy and PEG in place. Remains nonresponsive. Awaiting placement. 12/23. Continue support supportive care. Tracheostomy and PEG in place. Remains nonresponsive. Awaiting placement. Remains tachycardic. Decrease dose of lasix. Will try low dose metoprolol. Monitor BP closely 12/24. Continue support supportive care. Tracheostomy and PEG in place. Remains nonresponsive. Awaiting placement. Heart rate slightly better. Continue to monitor BP closely 12/25. Continue support supportive care. Tracheostomy and PEG in place. Remains nonresponsive. Awaiting placement. 12/26. Continue support supportive care. Tracheostomy and PEG in place. Remains nonresponsive. Awaiting placement 12/27. Continue support supportive care. Tracheostomy and PEG in place. Remains nonresponsive. Awaiting placement 12/28. Had fever yesterday. Blood culture drawn. UA - UTI - started on antibiotics. Now tracheal aspirate is growing GN rods. 12/29: Continue IV antibiotics, continue supportive care. Since admission patient has shown minimal or no chance of neurological recovery. Need 24/7 assistance. Currently on trach and PEG, nonverbal. Waiting on SNF placement. Discussed with case making machine operator today. 12/30: Continue IV antibiotics for UTI, continue supportive care. Pending placement 12/31: continue supportive care. continue supportive care. Pending placement 01/01: continue supportive care. Pending placement. cont Iv abx for UTI till 01/04 01/02: Continue supportive care, pending placement. Sodium level slightly elevated, will start hypotonic fluid. Continue antibiotics till 01/04 01/03; cont hypotonic fluid, increase free water with TF for hypernatremia, follow BMP. cont supportive care. pending placement. cont cefepime. recx blood 01/04: resolved hyponatremia, cont supportive care, pending placement. Last day of supplement today. 01/05: Continue supportive care, pending placement. Monitor H&H and fever curve off antibiotic. 01/06; monitor off abx, suction as needed, Continue supportive care, pending placement. 01/07: Discharge pending on placement, vitals stable. Continue supportive care 01/08: Discharge pending on placement, vitals stable. Continue supportive care. stop lasix, increase metoprolol to 25mg BID for ST. 01/09 patient resting with eyes closed. Opens eyes to tactile stimulus, has a blink reflex, does not follow simple commands, has a T-collar / G-tube Lab results reviewed, low-grade fever, 01/10 Eyes open, does not follow simple commands, no acute events overnight 01/11 no acute events overnight Waiting for placement 01/12 No acute events overnight. Patient awaiting for placement 01/13. No new issues. Awaiting placement 01/14. No new issues. Awaiting placement. 01/15. No new issues. Awaiting placement. History Interval history: 30 year old -Stateless female CHE 10/25/20 at 36w5d who presents with seizures in triage on 10/02/20. Pt was not able to provide history but per pt's , she presented to the hospital to return a 24 hour urine specimen for analysis. She then suddenly reported that she did not feel good. She was taken to labor and delivery and shortly after arrival, she began seizing. During this time, a code met was called because the patient became hypoxic. She was then noted to be without a pulse. Chest compressions were started immediately, and the patient was emergently taken to the operating room for delivery of the fetus. Off note, This patient has had care at [facility] with comanagement by [facility] since 11 wks complicated by ADHD, morbid obesity, generalized anxiety disorder, panic attacks, chronic narcotic use, fibromyalgia, GERD, Irritable Bowel Syndrome, Migraines, h/o endometrial ablation and ovarian vein embolization, genital herpes, insomnia, LGA fetus, nausea and vomiting, guerline yhydramnios, quad screen positive for Down's Syndrome, and previous x 3. She was GBS negative. Hospitalist Physical - Constitutional Vitals: Temp Pulse Resp BP Pulse Ox 99.4 F 116 H 20 113/94 97 01/15/21 04:07 01/15/21 04:07 01/15/21 04:07 01/15/21 04:07 01/15/21 04:07 General appearance: Present: other (Persistent vegetative state) - EENT Eyes: Present: PERRL, EOM intact ENT: hearing intact, clear oral mucosa, dentition normal - Neck Neck: Present: supple, normal ROM - Respiratory Respiratory effort: normal Respiratory: bilateral: CTA - Cardiovascular Rhythm: regular Heart Sounds: Present: S1 & S2. Absent: gallop, rub - Extremities Extremities: no ischemia, No edema, Full ROM - Abdominal General gastrointestinal: soft, non-tender, non-distended, normal bowel sounds - Integumentary Integumentary: Present: clear, warm, dry - Neurologic Neurologic: CNII-XII intact, moves all extremities HEART Score - HEART Score Age: < 45 Risk factors: 1-2 risk factors - Critical Actions Critical Actions: >7 pts:50-65% risk of adverse cardiac event. Early invasive measures Results - Labs CBC & Chem 7: 01/09/21 04:27 01/09/21 04:27 Labs: Laboratory Last Values WBC 8.7 K/mm3 (4.5-11.0) 01/09/21 04:27 RBC 5.22 M/mm3 (3.65-5.03) H 01/09/21 04:27 Hgb 12.9 gm/dl (10.1-14.3) 01/09/21 04:27 Hgb Comment See scanned result 10/04/20 Unknown Hct 39.7 % (30.3-42.9) 01/09/21 04:27 MCV 76 fl (79-97) L 01/09/21 04:27 MCH 25 pg (28-32) L 01/09/21 04:27 MCHC 32 % (30-34) 01/09/21 04:27 RDW 14.4 % (13.2-15.2) 01/09/21 04:27 Plt Count 210 K/mm3 (140-440) 01/09/21 04:27 Lymph % (Auto) 25.8 % (13.4-35.0) 01/09/21 04:27 Cavalier % (Auto) 9.7 % (0.0-7.3) H 01/09/21 04:27 Eos % (Auto) 1.1 % (0.0-4.3) 01/09/21 04:27 Baso % (Auto) 0.4 % (0.0-1.8) 01/09/21 04:27 Lymph # (Auto) 2.2 K/mm3 (1.2-5.4) 01/09/21 04:27 Cavalier # (Auto) 0.8 K/mm3 (0.0-0.8) 01/09/21 04:27 Eos # (Auto) 0.1 K/mm3 (0.0-0.4) 01/09/21 04:27 Baso # (Auto) 0.0 K/mm3 (0.0-0.1) 01/09/21 04:27 Add Manual Diff Complete 12/10/20 09:37 Total Counted 100 12/10/20 09:37 Seg Neutrophils % 63.0 % (40.0-70.0) 01/09/21 04:27 Seg Neuts % (Manual) 81.0 % (40.0-70.0) H 12/10/20 09:37 Band Neutrophils % 2.0 % 10/15/20 05:50 Lymphocytes % (Manual) 17.0 % (13.4-35.0) 12/10/20 09:37 Reactive Lymphs % (Man) 1.0 % 10/02/20 12:18 Monocytes % (Manual) 2.0 % (0.0-7.3) 12/10/20 09:37 Eosinophils % (Manual) 1.0 % (0.0-4.3) 10/29/20 07:56 Myelocytes % 2.0 % 10/02/20 13:05 Metamyelocytes % 1.0 % 10/14/20 04:00 Nucleated RBC % Not Reportable 12/10/20 09:37 Seg Neutrophils # 5.5 K/mm3 (1.8-7.7) 01/09/21 04:27 Seg Neutrophils # Man 10.1 K/mm3 (1.8-7.7) H 12/10/20 09:37 Band Neutrophils # 0.0 K/mm3 12/10/20 09:37 Lymphocytes # (Manual) 2.1 K/mm3 (1.2-5.4) 12/10/20 09:37 Abs React Lymphs (Man) 0.0 K/mm3 12/10/20 09:37 Monocytes # (Manual) 0.3 K/mm3 (0.0-0.8) 12/10/20 09:37 Eosinophils # (Manual) 0.0 K/mm3 (0.0-0.4) 12/10/20 09:37 Basophils # (Manual) 0.0 K/mm3 (0.0-0.1) 12/10/20 09:37 Metamyelocytes # 0.0 K/mm3 12/10/20 09:37 Myelocytes # 0.0 K/mm3 12/10/20 09:37 Promyelocytes # 0.0 K/mm3 12/10/20 09:37 Blast Cells # 0.0 K/mm3 12/10/20 09:37 WBC Morphology Not Reportable 12/10/20 09:37 Hypersegmented Neuts Not Reportable 12/10/20 09:37 Hyposegmented Neuts Not Reportable 12/10/20 09:37 Hypogranular Neuts Not Reportable 12/10/20 09:37 Smudge Cells Not Reportable 12/10/20 09:37 Toxic Granulation Not Reportable 12/10/20 09:37 Toxic Vacuolation Not Reportable 12/10/20 09:37 Dohle Bodies Not Reportable 12/10/20 09:37 Pelger-Huet Anomaly Not Reportable 12/10/20 09:37 Ester Rods Not Reportable 12/10/20 09:37 Platelet Estimate Consistent w auto 12/10/20 09:37 Clumped Platelets Not Reportable 12/10/20 09:37 Plt Clumps, EDTA Not Reportable 12/10/20 09:37 Large Platelets Not Reportable 12/10/20 09:37 Giant Platelets Not Reportable 12/10/20 09:37 Platelet Satelliting Not Reportable 12/10/20 09:37 Plt Morphology Comment Not Reportable 12/10/20 09:37 RBC Morphology Normal 12/10/20 09:37 Dimorphic RBCs Not Reportable 12/10/20 09:37 Polychromasia Not Reportable 12/10/20 09:37 Hypochromasia 1+ 12/10/20 09:37 Poikilocytosis Not Reportable 12/10/20 09:37 Anisocytosis Not Reportable 12/10/20 09:37 Microcytosis Not Reportable 12/10/20 09:37 Macrocytosis Not Reportable 12/10/20 09:37 Spherocytes Not Reportable 12/10/20 09:37 Pappenheimer Bodies Not Reportable 12/10/20 09:37 Sickle Cells Not Reportable 12/10/20 09:37 Target Cells Not Reportable 12/10/20 09:37 Tear Drop Cells Not Reportable 12/10/20 09:37 Ovalocytes Not Reportable 12/10/20 09:37 Stomatocytes Few 10/14/20 04:00 Helmet Cells Not Reportable 12/10/20 09:37 Burk-Mcpherson Bodies Not Reportable 12/10/20 09:37 Courtenay Rings Not Reportable 12/10/20 09:37 Kuna Cells Not Reportable 12/10/20 09:37 Bite Cells Not Reportable 12/10/20 09:37 Crenated Cell Not Reportable 12/10/20 09:37 Elliptocytes Not Reportable 12/10/20 09:37 Acanthocytes (Spur) Not Reportable 12/10/20 09:37 Rouleaux Not Reportable 12/10/20 09:37 Hemoglobin C Crystals Not Reportable 12/10/20 09:37 Schistocytes Not Reportable 12/10/20 09:37 Malaria parasites Not Reportable 12/10/20 09:37 Sickle Cell Solubility See scanned result 10/04/20 Unknown Hemoglobin A See scanned result 10/04/20 Unknown Hemoglobin A2 See scanned result 10/04/20 Unknown Hemoglobin A2 Prime See scanned result 10/04/20 Unknown Hemoglobin C See scanned result 10/04/20 Unknown Hemoglobin D See scanned result 10/04/20 Unknown Hemoglobin E See scanned result 10/04/20 Unknown Hgb F Diffential Stain See scanned result 10/04/20 Unknown Hemoglobin F Quant See scanned result 10/04/20 Unknown Hemoglobin G See scanned result 10/04/20 Unknown Hemoglobin S See scanned result 10/04/20 Unknown Hemoglobin O-Chandler See scanned result 10/04/20 Unknown Hemoglobin Barts See scanned result 10/04/20 Unknown Hemoglobin Analilia See scanned result 10/04/20 Unknown Variant Hemoglobin See scanned result 10/04/20 Unknown Abnorm Hgb IEF Confirm See scanned result 10/04/20 Unknown Hemoglobin Interpret See scanned result 10/04/20 Unknown Hemoglobinopathy Note See scanned result 10/04/20 Unknown Sharad Bodies Not Reportable 12/10/20 09:37 Hem Pathologist Commnt No 12/10/20 09:37 PT 13.6 Sec. (12.2-14.9) 10/21/20 13:54 INR 1.06 (0.87-1.13) 10/21/20 13:54 APTT 31.6 Sec. (24.2-36.6) 10/03/20 00:40 Fibrinogen 336 mg/dl (211-480) 10/04/20 10:00 D-Dimer 1974.47 ng/mlDDU (0-234) H 11/11/20 13:50 ABG pH 7.459 pH Units (7.350-7.450) H 10/26/20 10:30 POC ABG pCO2 20.7 mmHg (32.0-48.0) L 10/13/20 07:18 ABG pCO2 32.4 mm Hg 10/26/20 10:30 POC ABG pO2 137.9 mmHg (83-108) H 10/13/20 07:18 ABG pO2 112.2 mm Hg (80.0-90.0) H 10/26/20 10:30 POC ABG HCO3 14.8 10/13/20 07:18 ABG HCO3 22.5 mmol/L (20.0-26.0) 10/26/20 10:30 ABG O2 Saturation 98.2 % (95.0-99.0) 10/26/20 10:30 ABG O2 Content 18.5 (0.0-44) 10/26/20 10:30 POC ABG Base Excess -6.9 10/13/20 07:18 ABG Base Excess -0.6 mmol/L (-2.0-3.0) 10/26/20 10:30 ABG Hemoglobin 13.5 gm/dl (12.0-16.0) 10/26/20 10:30 ABG Oxyhemoglobin 98.3 (94-98) H 10/13/20 07:18 ABG Carboxyhemoglobin 1.3 % (0.0-5.0) 10/26/20 10:30 ABG Methemoglobin 0.5 % (0.0-1.5) 10/26/20 10:30 ABG Sodium 135.9 mmol/L (136.0-145.0) L 10/13/20 07:18 ABG Potassium 3.7 mmol/L (3.40-4.50) 10/13/20 07:18 ABG Chloride 111.0 mmol/L (98-107) H 10/13/20 07:18 ABG Glucose 109 mg/dL (65-95) H 10/13/20 07:18 VBG pH 6.949 (7.320-7.420) L* 10/02/20 Unknown Oxyhemoglobin 96.5 % (95.0-99.0) 10/26/20 10:30 Carboxyhemoglobin 0.3 (0.5-1.5) L 10/13/20 07:18 FiO2 25 % 10/26/20 10:30 Sodium 143 mmol/L (137-145) 01/09/21 04:27 Potassium 3.9 mmol/L (3.6-5.0) 01/09/21 04:27 Chloride 105.4 mmol/L (98-107) 01/09/21 04:27 Carbon Dioxide 25 mmol/L (22-30) 01/09/21 04:27 Anion Gap 17 mmol/L 01/09/21 04:27 BUN 9 mg/dL (7-17) 01/09/21 04:27 Creatinine 0.5 mg/dL (0.6-1.2) L 01/09/21 04:27 Estimated GFR > 60 ml/min 01/09/21 04:27 BUN/Creatinine Ratio 18 % 01/09/21 04:27 Glucose 98 mg/dL (65-100) 01/09/21 04:27 POC Glucose 103 mg/dL (70-105) 01/15/21 06:11 Random Insulin 43.2 uIU/mL (<=19.6) H 11/02/20 19:19 Proinsulin See scanned result 11/02/20 19:19 C-Peptide 6.23 ng/mL (0.80-3.85) H 11/02/20 19:19 Lactic Acid 1.90 mmol/L (0.7-2.0) 10/04/20 22:00 Uric Acid 7.5 mg/dL (3.5-7.6) 10/02/20 13:05 Calcium 9.4 mg/dL (8.4-10.2) 01/09/21 04:27 Ionized Calcium 4.4 mg/dL (4.8-5.6) L 10/07/20 21:00 Phosphorus 4.60 mg/dL (2.5-4.5) H 11/13/20 10:05 Magnesium 2.10 mg/dL (1.7-2.3) 11/13/20 10:05 Total Bilirubin 0.40 mg/dL (0.1-1.2) 12/22/20 11:03 AST 45 units/L (5-40) H 12/22/20 11:03 ALT 33 units/L (7-56) 12/22/20 11:03 Alkaline Phosphatase 100 units/L (35-129) 12/22/20 11:03 Lactate Dehydrogenase 769 units/L (91-180) H 10/02/20 13:05 C-Reactive Protein 0.70 mg/dL (0.00-1.30) 11/11/20 13:50 NT-Pro-B Natriuret Pep 2788 pg/mL (0-450) H 10/04/20 10:00 Total Protein 7.5 g/dL (6.3-8.2) 12/22/20 11:03 Albumin 3.8 g/dL (3.9-5) L 12/22/20 11:03 Albumin/Globulin Ratio 1.0 % 12/22/20 11:03 Procalcitonin < 0.05 ng/mL (<0.15) 12/27/20 20:16 Arterial Blood Glucose 109 mg/dL (65-95) H 10/13/20 07:18 Arterial Blood Ionized Calcium 4.6 mg/dL (4.6-5.3) 10/13/20 07:18 Urine Color Kelsey (Yellow) 12/27/20 22:25 Urine Turbidity Cloudy (Clear) 12/27/20 22:25 Urine pH 7.0 (5.0-7.0) 12/27/20 22:25 Ur Specific [place] 1.018 (1.003-1.030) 12/27/20 22:25 Urine Protein 30 mg/dl mg/dL (Negative) 12/27/20 22:25 Urine Glucose (UA) Neg mg/dL (Negative) 12/27/20 22:25 Urine Ketones Neg mg/dL (Negative) 12/27/20 22:25 Urine Blood Sm (Negative) 12/27/20 22:25 Urine Nitrite Pos (Negative) 12/27/20 22:25 Urine Bilirubin Neg (Negative) 12/27/20 22:25 Urine Urobilinogen 2.0 mg/dL (<2.0) 12/27/20 22:25 Ur Leukocyte Esterase Lg (Negative) 12/27/20 22:25 Urine WBC (Auto) 5.0 /HPF (0.0-6.0) 12/27/20 22:25 Urine RBC (Auto) 22.0 /HPF (0.0-6.0) 12/27/20 22:25 U Epithel Cells (Auto) 16.0 /HPF (0-13.0) H 12/27/20 22:25 Urine Bacteria (Auto) 4+ /HPF (Negative) 12/27/20 22:25 Urine WBC Clumps 3+ /HPF 11/11/20 13:50 Calcium Oxalate Crystal Few 11/11/20 13:50 Urine Mucus 3+ /HPF 12/27/20 22:25 Urine Yeast (Budding) 2+ /HPF 12/10/20 09:25 Vancomycin Trough 12.6 ug/mL (5.0-20.0) 10/21/20 13:54 Random Vancomycin 10.7 ug/mL (0-40.0) 10/16/20 13:09 Phenytoin 5.7 ug/mL (10.0-20.0) L 10/13/20 07:00 C. difficile Tox (PCR) Positive (Negative) 10/16/20 10:22 Coronavirus (PCR) Negative (Negative) 10/08/20 14:15 Blood Type O POSITIVE 10/02/20 12:50 Antibody Screen Negative 10/02/20 12:50 Crossmatch See Detail 10/02/20 12:50 - Diagnostic Impressions Diagnostic Impressions: Echocardiogram 10/03/20 13:42 Transthoracic Echocardiogram Indication: S/P Cardiac Arrest R/O Cardiomyopathy BP: 133/71 Conclusions *Global left ventricular systolic function is normal. *The estimated ejection fraction is 60-65%. *There is trace of mitral regurgitation. *The right 0heart chambers are both slightly dilated. *There is mild tricuspid regurgitation. *There is mild-moderate pulmonary hypertension. *The right ventricular systolic pressure is calculated at 44 mmHg. *The study quality is technically difficult. Findings Procedure Info: The study quality is technically difficult. The study is technically limited due to patient body habitus. The study was technically limited due to the patient's inability to lay in the left lateral decubitus position. Left Ventricle: The left ventricular chamber size is normal. There is no left ventricular hypertrophy. Global left ventricular systolic function is normal. The estimated ejection fraction is 60-65%. Left Atrium: The left atrial chamber size is normal. Right Ventricle: The right ventricle is slightly dilated. Right Atrium: The right atrium is mildly dilated. Aortic Valve: The aortic valve leaflets are mildly thickened. There is no evidence of aortic regurgitation. There is no evidence of aortic stenosis. Mitral Valve: The mitral valve leaflets are mildly thickened. There is trace of mitral regurgitation. There is no evidence of mitral stenosis. Tricuspid Valve: There is mild tricuspid regurgitation. The right ventricular systolic pressure is calculated at 44 mmHg. There is evidence of mild pulmonary hypertension. Pulmonic Valve: There is trace pulmonic regurgitation. Pericardium: There is no pericardial effusion. Aorta: There is no dilatation of the ascending aorta. There is no dilatation of the aortic root. Venous: The inferior vena cava is dilated. Measurements Chambers 2D Name Value Normal Range IVSd (2D) 1 cm (0.6 - 1.1) LVPWd (2D) 1.01 cm (0.6 - 1.1) LVIDd (2D) 4.58 cm (3.7 - 5.6) LVIDs (2D) 3.17 cm (2 - 3.8) LV FS (2D) 30.93 % - EF Teichholz (2D) 58.66 % - Ao root diameter (2D) 2.94 cm (2 - 3.7) Volumes/Mass Name Value Normal Range LA ESV SP 4CH (A/L) 72.82 ml - LA ESV SP 2CH (A/L) 66.86 ml - LA ESV BP (A/L) 74.49 ml - LA ESV SP 4CH (MOD) 71.03 ml - LA ESV SP 2CH (MOD) 64.3 ml - LV EDV SP 4CH (MOD) 98.82 ml - LV ESV SP 4CH (MOD) 24.8 ml - EF SP 4CH (MOD) 74.9 % - LV EDV SP 2CH (MOD) 86.1 ml - LV ESV SP 2CH (MOD) 36.93 ml - EF SP 2CH (MOD) 57.11 % - LV EDV BP 94.4 ml - LV ESV BP 32.66 ml - BP EF (MOD) 65.4 % - Diastolic/Systolic Function Name Value Normal Range MV E-wave Vmax 1.04 m/sec - MV deceleration time 160.46 msec - MV A-wave Vmax 0.92 m/sec - MV E:A ratio 1.14 ratio - Aortic Valve Name Value Normal Range AV Vmax 2.12 m/sec - AV VTI 22.37 cm - AV peak gradient 17.95 mmHg - AV mean gradient 7.29 mmHg - LVOT diameter 2.01 cm - LVOT Vmax 1.8 m/sec - LVOT VTI 27.17 cm - LVOT peak gradient 12.91 mmHg - LVOT mean gradient 6.83 mmHg - SV LVOT 86.42 ml - ANITA (continuity Vmax) 2.7 cm2 - ANITA (continuity VTI) 3.86 cm2 - Ascending Ao 3.18 cm - Tricuspid Valve Name Value Normal Range TV E-wave Vmax 0.88 m/sec - TR Vmax 3.01 m/sec - TR peak gradient 36.27 mmHg - RAP 8 mmHg - RVSP 44 mmHg - IVC diameter 2.65 cm (1.2 - 2.3) Pulmonic Valve/Qp:Qs Name Value Normal Range PV Vmax 1.22 m/sec - PV peak gradient 5.91 mmHg - RVOT Vmax 0.87 m/sec - RVOT VTI 13.32 cm - RVOT peak gradient 3 mmHg - PV acceleration time 110.37 msec - [place]/IV: Voiding Method Incontinent IV Catheter Type [Right Foot] INT / Saline Lock IV Catheter Type [Left Forearm Peripheral IV ] IV Catheter Type [Left Wrist] INT / Saline Lock IV Catheter Type [Right Hand] INT / Saline Lock IV Catheter Type [Right INT / Saline Lock Antecubital] IV Catheter Type [Right Upper Mid-line arm] IV Catheter Type [Left Triple Lumen Cath Internal Jugular] IV Catheter Type [Left Hand] Peripheral IV IV Catheter Type [Left Peripheral IV Antecubital] Active Medications - Current Medications Current Medications: Generic Name Dose Route Start Last Admin Trade Name Freq PRN Reason Stop Dose Admin Acetaminophen 650 mg 10/05/20 16:34 01/10/21 22:48 Acetaminophen 325 Mg/10.15 Ml Oral Liqd Unit Dose FEEDTUBE 650 mg Q6H PRN Administration Non Cardiac Pain or Temp>100.5 Albuterol 2.5 mg 11/05/20 13:03 11/06/20 13:04 Albuterol 2.5 Mg/3 Ml Nebu IH 2.5 mg Q4HRT PRN Administration Shortness Of Breath Lipase/Protease/Amylase 1 each 10/05/20 11:09 Lipase 10,500/Protease 25,000/Amylase 43,750 (Units) Dr Barakat FEEDTUBE PRN PRN For Clogged Feeding Tube Enoxaparin Sodium 40 mg 10/22/20 10:00 01/14/21 10:08 Enoxaparin 40 Mg/0.4 Ml Inj SUB-Q 40 mg DAILY ERINN Administration Protocol Famotidine 20 mg 10/07/20 10:00 01/14/21 21:43 Famotidine 20 Mg Tab PO 20 mg BID ERINN Administration Hydralazine HCl 20 mg 10/07/20 11:49 10/17/20 07:20 Hydralazine 20 Mg/1 Ml Inj IV 20 mg Q6H PRN Administration SBP >170 Hydrophilic Ointment 1 applic 01/03/21 13:00 Lip Therapy Vaseline TP DIRECT PRN Dry Lips Dextrose 1,000 mls @ 30 mls/hr 01/03/21 12:00 01/15/21 01:51 D5w IV Infused DIRECT ERINN Infusion Metoprolol Tartrate 25 mg 01/08/21 22:00 01/14/21 22:33 Metoprolol Tartrate 25 Mg Tab PO 25 mg BID ERINN Administration Polyethylene Glycol 17 gm 12/27/20 15:07 12/28/20 10:05 Polyethylene Glycol 3350 17 Gm Powder PO 17 gm QDAY PRN Administration Constipation Simple Syrup 15 ml 10/05/20 11:09 Simple Syrup 15 Ml FEEDTUBE PRN PRN Hypoglycemia Simple Syrup 30 ml 10/05/20 11:09 Simple Syrup 15 Ml FEEDTUBE PRN PRN Hypoglycemia Sodium Bicarbonate 325 mg 10/05/20 11:09 12/16/20 08:19 Sodium Bicarbonate 325 Mg Tab FEEDTUBE 325 mg PRN PRN Administration For Clogged Feeding Tube Nutrition/Malnutrition Assess - Dietary Evaluation Nutrition/Malnutrition Findings: Nutrition Notes Start: 10/04/20 11:13 Freq: Status: Active Protocol: Document 01/11/21 15:00 BREANNA (Rec: 01/11/21 15:07 BREANNA [id number]) Nutrition Notes Initial or Follow up Reassessment Current Diagnosis Respiratory Failure Other Pertinent Diagnosis C-Diff, s/p AL, s/p and supracervical hysterectomy Current Diet TF - Jevity 1.2 at 60 mL/hr Labs/Tests Na 143 (01/09) Pertinent Medications D5W at 30ml/hr Height 5 ft 8 in Weight 88.6 kg [place] Body Weight (kg) 63.63 BMI 29.7 Weight Status Overweight Subjective/Other Information Spoke with RN via phone at 14: 48. Pt tolerating TF at goal rate; receives 100ml water flush q4h. Pt awaiting placement. Percent of energy/protein needs met: 87% energy 100% pro Burn Absent Trauma Absent #2 Nutrition Diagnosis Malnutrition Diagnosis Progress(for reassessment Continues documentation) #1 Nutrition Diagnosis Inadequate oral intake Diagnosis Progress(for reassessment Continues documentation) Is patient on ventilator? No Is Patient Ambulatory and/or Out of Bed No REE-([facility]-confined to bed) 1975.404 Calculation Used for Recommendations [facility] Additional Notes Pro needs 0.8-1g/k-89g/ day Fluid needs 1ml/kcal Nutrition Intervention Nutrition Support: Continue Jevity 1.2 at 60ml/hr . Flush 100ml q4h. Kcal 1,728 Protein (gm) 80 Fluid (mL) 1,162 Goal #1 TF tolerance Goal #2 TF to meet at least 75% energy and pro needs Follow-Up By: 01/18/21 Additional Comments F/U: stable TF, wt
[2021-01-15] MEDS: DEXTROSE 5% IN WATER 1,000 ML IV SCH (16:05)
--- NOTE | 2021-01-16 08:47 | Progress Note ---
Assessment and Plan Assessment and plan: --DIC (disseminated intravascular coagulation) vs HELLP syndrome Resolved --Possible Eclampsia/HELLP Syndrome Resolved --s/p Cardiac arrest x2 on admission and on 10/07 ACLS protocol followed by revival Echo showed preserved Ef --Anoxic brain injury, Developed following cardiac arrest, continue supportive care --Shock-resolved now awaiting placement s/p pressor support --ADOLPH-resolved Stable --Sepsis 2/2 UTI s/p cefepime to cover possible pseudomonas as sputum is also growing GN rods till 01/04/21 Previous urine culture grew pansensitive ecoli Blood cultures from 12/27-no growth --Hypernatremia, resolved, cont free water with TF --DVT prophylaxis Patient presented with DIC No anticoagulants Overall prognosis extremely poor. Daily clinical course 10/02/21 11:30: Pt brought to L&D triage for evaluation of possible labor. Pt accompanied by her spouse. Pt spouse poor historian; unable to obtain history- allergies at this time. Pt taken from registration to triage area via WC. Pt unresponsive, actively seizing with snorous respirations. pit operator, Kassy, called and requesting assistance. 11:35: Multiple staff at bedside. Pt 02 sat 67% on nonrebreather, unable to read BP at this time. Yifan Theodore CRNA, at bedside for intubation and assistance with IV insertion. INT attempt by multiple RNs unsuccessful at this time. 11:42: Pt being bagged by KORIN, 02% 79%. No pulse palpated, compressions started at this time; bharati young called and Dr. Newberry preparing OR for emergent c/s. 11:44: Continued compressions on stretcher while transporting pt to OR 1. Pt being bagged with jaw thrust manuever in place by KORIN Stringer student. 11:45: Arrival to OR 1. Dr. Newberry and Dr. Portillo present for emergent c/s. Code team arrived for continued care. patient revived and c/s done Patient has been bleeding from C/s site followed by supracervical hysterectomy for severe bleeding Patient transfused multiple units of PRBC, Patient in DIC. Transferred to the [facility] 10/03. Patient seen and examined at bedside this morning. Patient is nonresponsive and mechanically ventilated. On pressors. Labs reviewed-has leukocytosis, anemia, thrombocytopenia, ADOLPH and lactic acidosis. Started on IV antibiotics to cover possible sepsis secondary to DIC. Hematology oncology recommendations appreciated-needs additional cryoprecipitate and FFP. Monitor D-dimer, fibrinogen and frequent labs. Nephrology consulted for lactic acidosis and ADOLPH. 10/04. Remains mechanically ventilated. [place] antibiotics. Labs shows improved acidosis - lactic acid 3.5. Hb drop noted. Getting transfused 2 units PRBCs. Platelet count is ~40k. Continue to monitor labs closely. Critical care team on board. 10/05; xray reviewed, concerning for multifocal infilrate, likely underlying [place], will add ID consult to assist with management of this critically ill patient, start tube feed, closely monitor renal system 10/06: Resumed care, remains on mechanical ventilation. No active bleeding, H&H stable. Continue to monitor CBC and BMP. Continue IV antibiotic for underlying pneumonia. Follow critical care and ID recommendation. 10/07: Remains on mechanical ventilation. No active bleeding, H&H stable. Critical care following, wean off ventilation as tolerated. 10/08: Patient had another cardiac arrest last night. Remains on mechanical ventilation, update family. Continue supportive care -poor prognosis 10/09: Called patient mother and discussed about patient care and management. Answered all question to best of my knowledge and family satisfaction. Patient remains on mechanical ventilation, cardiac arrest x2 so far. Critically sick, poor prognosis 10/10: remains on mechanical ventilation. h/h stable, no active bleeding. monitor CBC/BMP 10/11: WBC trended up with diarrhea, started on vancomycin po. remains on MV, off pressor, tolerating TF 10/12: remains on MV, off pressor, tolerating TF. called family for update but unable to reach, could not leave message as it was full. cont supportive care, wean off vent as tolerated. 10/13/2020; patient is on mechanical ventilation, tolerating tube feeding. Patient has labored breathing. Neuro was consulted and recommend MRI. Patient is on Precedex. Rectal tube in place. 10/14/2020; patient is on mechanical ventilation, Precedex. Patient had fever and blood culture ordered. Patient is on IV vancomycin per ID recommendation. Neuro consulted and recommend MRI. Continue to monitor. Prognosis is guarded. 10/15/2020; patient is on mechanical ventilation, Precedex. Patient had fever and blood culture ordered. Patient is on IV vancomycin per ID recommendation. Neuro consulted and recommend MRI. Continue to monitor. Prognosis is guarded. 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 12/06/20; anoxic brain injury. Awaiting placement. 12/07/2020; anoxic brain injury, awaiting placement. 12/09/2020; anoxic brain injury, awaiting placement. 12/10/2020; patient had episodes of fever overnight. CBC, BMP, blood culture, UA and chest x-ray ordered, will follow and manage accordingly. Urinalysis is suggestive of UTI and I put the patient on ceftriaxone, order urine culture. Chest x-ray is normal. 12/11/2020; patient is on ceftriaxone day 2 for UTI. We will continue to follow urine culture. 12/12/2020. Day #3 of Rocephin for UTI. We will continue for 2 more days while she is here. Present UTI. 12/13/2020. Day #4 of Rocephin for UTI. Patient remains on 50% with tracheost jayne. Remains unresponsive with evidence of anoxic encephalopathy unable to make needs known. 12/14/2020. Day #5 of Rocephin for UTI completed today. Remains encephalopathic unable to make needs known. Remains on 50% unable to decrease oxygen via tracheostomy. Overall prognosis remains extremely poor. 3: Continue to monitor. Stop and monitor antibiotics at this time. Continue to wean oxygen as tolerated. Wean oxygen as tolerated. Case management working on placement. 12/16: Continue supportive care aspiration precautions. Awaiting placement discussion. Monitor fever curve. Prognosis remains poor no evidence of neurological recovery as of today 3: Continue supportive care, check labs and chest xray. Still monitor off antibiotics. Monitor Sodium level 12/18: Patient remains with intermittent low grade fever, reviewed EEG from September again, consistent for Ischemic Hypoxic Encephalopathy, patient with decorticating posturing type presentation. Will discuss with security operations center analyst to opt imize diet so we can discontinue D5. CXR with no abnormality. Discussed extensively with the nursing staff at bedside CXR IMPRESSION: 1. No acute findings. 12/19: No clinical change 12/20: No clinical change, now off abx, monitor, discussed her medications with our pharmacist I believe that her posture and rigidity is likely from underlying anoxic encephalopathy. Continue to monitor and await placement decision. Continue aggressive suctioning. Plan discussed in detail with the nursing staff 12/21: Continue supportive care. Will give 500 cc bolus of fluid today to replace insensible losses. Tachycardia appears to be improving. Blood pressure precludes adjusting cardiac meds. Still awaiting placement from case management. Plan discussed in detail with the nursing staff 12/22. Continue support supportive care. Tracheostomy and PEG in place. Remains nonresponsive. Awaiting placement. 12/23. Continue support supportive care. Tracheostomy and PEG in place. Remains nonresponsive. Awaiting placement. Remains tachycardic. Decrease dose of lasix. Will try low dose metoprolol. Monitor BP closely 12/24. Continue support supportive care. Tracheostomy and PEG in place. Remains nonresponsive. Awaiting placement. Heart rate slightly better. Continue to monitor BP closely 12/25. Continue support supportive care. Tracheostomy and PEG in place. Remains nonresponsive. Awaiting placement. 12/26. Continue support supportive care. Tracheostomy and PEG in place. Remains nonresponsive. Awaiting placement 12/27. Continue support supportive care. Tracheostomy and PEG in place. Remains nonresponsive. Awaiting placement 12/28. Had fever yesterday. Blood culture drawn. UA - UTI - started on antibiotics. Now tracheal aspirate is growing GN rods. 12/29: Continue IV antibiotics, continue supportive care. Since admission patient has shown minimal or no chance of neurological recovery. Need 24/7 assistance. Currently on trach and PEG, nonverbal. Waiting on SNF placement. Discussed with business case analyst today. 12/30: Continue IV antibiotics for UTI, continue supportive care. Pending placement 12/31: continue supportive care. continue supportive care. Pending placement 01/01: continue supportive care. Pending placement. cont Iv abx for UTI till 01/04 01/02: Continue supportive care, pending placement. Sodium level slightly elevated, will start hypotonic fluid. Continue antibiotics till 01/04 01/03; cont hypotonic fluid, increase free water with TF for hypernatremia, follow BMP. cont supportive care. pending placement. cont cefepime. recx blood 01/04: resolved hyponatremia, cont supportive care, pending placement. Last day of supplement today. 01/05: Continue supportive care, pending placement. Monitor H&H and fever curve off antibiotic. 01/06; monitor off abx, suction as needed, Continue supportive care, pending placement. 01/07: Discharge pending on placement, vitals stable. Continue supportive care 01/08: Discharge pending on placement, vitals stable. Continue supportive care. stop lasix, increase metoprolol to 25mg BID for ST. 01/09 patient resting with eyes closed. Opens eyes to tactile stimulus, has a blink reflex, does not follow simple commands, has a T-collar / G-tube Lab results reviewed, low-grade fever, 01/10 Eyes open, does not follow simple commands, no acute events overnight 01/11 no acute events overnight Waiting for placement 01/12 No acute events overnight. Patient awaiting for placement 01/13. No new issues. Awaiting placement 01/14. No new issues. Awaiting placement. 01/15. No new issues. Awaiting placement. 01/16. No new issues. Patient remain stable. Awaiting placement. Check maintenance labs. History Interval history: 30 year old -[place] female CHE 10/25/20 at 36w5d who presents with seizures in triage on 10/02/20. Pt was not able to provide history but per pt's , she presented to the hospital to return a 24 hour urine specimen for analysis. She then suddenly reported that she did not feel good. She was taken to labor and delivery and shortly after arrival, she began seizing. During this time, a code met was called because the patient became hypoxic. She was then noted to be without a pulse. Chest compressions were started immediately, and the patient was emergently taken to the operating room for delivery of the fetus. Off note, This patient has had care at [facility] with comanagement by [facility] since 11 wks complicated by ADHD, morbid obesity, generalized anxiety disorder, panic attacks, chronic narcotic use, fibromyalgia, GERD, Irritable Bowel Syndrome, Migraines, h/o endometrial ablation and ovarian vein embolization, genital herpes, insomnia, LGA fetus, nausea and vomiting, polyhydramnios, quad screen positive for Down's Syndrome, and previous x 3. She was GBS negative. Hospitalist Physical - Constitutional Vitals: Temp Pulse Resp BP Pulse Ox 97.7 F 92 H 18 103/66 97 01/16/21 05:26 01/16/21 05:26 01/16/21 05:26 01/16/21 05:26 01/16/21 05:26 General appearance: Present: other (Persistent vegetative state) - EENT Eyes: Present: PERRL, EOM intact ENT: hearing intact, clear oral mucosa, dentition normal - Neck Neck: Present: supple, normal ROM - Respiratory Respiratory effort: normal Respiratory: bilateral: CTA - Cardiovascular Rhythm: regular Heart Sounds: Present: S1 & S2. Absent: gallop, rub - Extremities Extremities: no ischemia, No edema, Full ROM - Abdominal General gastrointestinal: soft, non-tender, non-distended, normal bowel sounds - Integumentary Integumentary: Present: clear, warm, dry - Neurologic Neurologic: CNII-XII intact, moves all extremities HEART Score - HEART Score Age: < 45 Risk factors: 1-2 risk factors - Critical Actions Critical Actions: >7 pts:50-65% risk of adverse cardiac event. Early invasive m easures Results - Labs CBC & Chem 7: 01/09/21 04:27 01/09/21 04:27 Labs: Laboratory Last Values WBC 8.7 K/mm3 (4.5-11.0) 01/09/21 04:27 RBC 5.22 M/mm3 (3.65-5.03) H 01/09/21 04:27 Hgb 12.9 gm/dl (10.1-14.3) 01/09/21 04:27 Hgb Comment See scanned result 10/04/20 Unknown Hct 39.7 % (30.3-42.9) 01/09/21 04:27 MCV 76 fl (79-97) L 01/09/21 04:27 MCH 25 pg (28-32) L 01/09/21 04:27 MCHC 32 % (30-34) 01/09/21 04:27 RDW 14.4 % (13.2-15.2) 01/09/21 04:27 Plt Count 210 K/mm3 (140-440) 01/09/21 04:27 Lymph % (Auto) 25.8 % (13.4-35.0) 01/09/21 04:27 [place] % (Auto) 9.7 % (0.0-7.3) H 01/09/21 04:27 Eos % (Auto) 1.1 % (0.0-4.3) 01/09/21 04:27 Baso % (Auto) 0.4 % (0.0-1.8) 01/09/21 04:27 Lymph # (Auto) 2.2 K/mm3 (1.2-5.4) 01/09/21 04:27 [place] # (Auto) 0.8 K/mm3 (0.0-0.8) 01/09/21 04:27 Eos # (Auto) 0.1 K/mm3 (0.0-0.4) 01/09/21 04:27 Baso # (Auto) 0.0 K/mm3 (0.0-0.1) 01/09/21 04:27 Add Manual Diff Complete 12/10/20 09:37 Total Counted 100 12/10/20 09:37 Seg Neutrophils % 63.0 % (40.0-70.0) 01/09/21 04:27 Seg Neuts % (Manual) 81.0 % (40.0-70.0) H 12/10/20 09:37 Band Neutrophils % 2.0 % 10/15/20 05:50 Lymphocytes % (Manual) 17.0 % (13.4-35.0) 12/10/20 09:37 Reactive Lymphs % (Man) 1.0 % 10/02/20 12:18 Monocytes % (Manual) 2.0 % (0.0-7.3) 12/10/20 09:37 Eosinophils % (Manual) 1.0 % (0.0-4.3) 10/29/20 07:56 Myelocytes % 2.0 % 10/02/20 13:05 Metamyelocytes % 1.0 % 10/14/20 04:00 Nucleated RBC % Not Reportable 12/10/20 09:37 Seg Neutrophils # 5.5 K/mm3 (1.8-7.7) 01/09/21 04:27 Seg Neutrophils # Man 10.1 K/mm3 (1.8-7.7) H 12/10/20 09:37 Band Neutrophils # 0.0 K/mm3 12/10/20 09:37 Lymphocytes # (Manual) 2.1 K/mm3 (1.2-5.4) 12/10/20 09:37 Abs React Lymphs (Man) 0.0 K/mm3 12/10/20 09:37 Monocytes # (Manual) 0.3 K/mm3 (0.0-0.8) 12/10/20 09:37 Eosinophils # (Manual) 0.0 K/mm3 (0.0-0.4) 12/10/20 09:37 Basophils # (Manual) 0.0 K/mm3 (0.0-0.1) 12/10/20 09:37 Metamyelocytes # 0.0 K/mm3 12/10/20 09:37 Myelocytes # 0.0 K/mm3 12/10/20 09:37 Promyelocytes # 0.0 K/mm3 12/10/20 09:37 Blast Cells # 0.0 K/mm3 12/10/20 09:37 WBC Morphology Not Reportable 12/10/20 09:37 Hypersegmented Neuts Not Reportable 12/10/20 09:37 Hyposegmented Neuts Not Reportable 12/10/20 09:37 Hypogranular Neuts Not Reportable 12/10/20 09:37 Smudge Cells Not Reportable 12/10/20 09:37 Toxic Granulation Not Reportable 12/10/20 09:37 Toxic Vacuolation Not Reportable 12/10/20 09:37 Dohle Bodies Not Reportable 12/10/20 09:37 Pelger-Huet Anomaly Not Reportable 12/10/20 09:37 Ester Rods Not Reportable 12/10/20 09:37 Platelet Estimate Consistent w auto 12/10/20 09:37 Clumped Platelets Not Reportable 12/10/20 09:37 Plt Clumps, EDTA Not Reportable 12/10/20 09:37 Large Platelets Not Reportable 12/10/20 09:37 Giant Platelets Not Reportable 12/10/20 09:37 Platelet Satelliting Not Reportable 12/10/20 09:37 Plt Morphology Comment Not Reportable 12/10/20 09:37 RBC Morphology Normal 12/10/20 09:37 Dimorphic RBCs Not Reportable 12/10/20 09:37 Polychromasia Not Reportable 12/10/20 09:37 Hypochromasia 1+ 12/10/20 09:37 Poikilocytosis Not Reportable 12/10/20 09:37 Anisocytosis Not Reportable 12/10/20 09:37 Microcytosis Not Reportable 12/10/20 09:37 Macrocytosis Not Reportable 12/10/20 09:37 Spherocytes Not Reportable 12/10/20 09:37 Pappenheimer Bodies Not Reportable 12/10/20 09:37 Sickle Cells Not Reportable 12/10/20 09:37 Target Cells Not Reportable 12/10/20 09:37 Tear Drop Cells Not Reportable 12/10/20 09:37 Ovalocytes Not Reportable 12/10/20 09:37 Stomatocytes Few 10/14/20 04:00 Helmet Cells Not Reportable 12/10/20 09:[address] [place] Bodies Not Reportable 12/10/20 09:37 [place] Rings Not Reportable 12/10/20 09:37 Antoine Cells Not Reportable 12/10/20 09:37 Bite Cells Not Reportable 12/10/20 09:37 Crenated Cell Not Reportable 12/10/20 09:37 Elliptocytes Not Reportable 12/10/20 09:37 Acanthocytes (Spur) Not Reportable 12/10/20 09:37 Rouleaux Not Reportable 12/10/20 09:37 Hemoglobin C Crystals Not Reportable 12/10/20 09:37 Schistocytes Not Reportable 12/10/20 09:37 Malaria parasites Not Reportable 12/10/20 09:37 Sickle Cell Solubility See scanned result 10/04/20 Unknown Hemoglobin A See scanned result 10/04/20 Unknown Hemoglobin A2 See scanned result 10/04/20 Unknown Hemoglobin A2 Prime See scanned result 10/04/20 Unknown Hemoglobin C See scanned result 10/04/20 Unknown Hemoglobin D See scanned result 10/04/20 Unknown Hemoglobin E See scanned result 10/04/20 Unknown Hgb F Diffential Stain See scanned result 10/04/20 Unknown Hemoglobin F Quant See scanned result 10/04/20 Unknown Hemoglobin G See scanned result 10/04/20 Unknown Hemoglobin S See scanned result 10/04/20 Unknown Hemoglobin [place] See scanned result 10/04/20 Unknown Hemoglobin [place] See scanned result 10/04/20 Unknown Hemoglobin Analilia See scanned result 10/04/20 Unknown Variant Hemoglobin See scanned result 10/04/20 Unknown Abnorm Hgb IEF Confirm See scanned result 10/04/20 Unknown Hemoglobin Interpret See scanned result 10/04/20 Unknown Hemoglobinopathy Note See scanned result 10/04/20 Unknown Sharad Bodies Not Reportable 12/10/20 09:37 Hem Pathologist Commnt No 12/10/20 09:37 PT 13.6 Sec. (12.2-14.9) 10/21/20 13:54 INR 1.06 (0.87-1.13) 10/21/20 13:54 APTT 31.6 Sec. (24.2-36.6) 10/03/20 00:40 Fibrinogen 336 mg/dl (211-480) 10/04/20 10:00 D-Dimer 1974.47 ng/mlDDU (0-234) H 11/11/20 13:50 ABG pH 7.459 pH Units (7.350-7.450) H 10/26/20 10:30 POC ABG pCO2 20.7 mmHg (32.0-48.0) L 10/13/20 07:18 ABG pCO2 32.4 mm Hg 10/26/20 10:30 POC ABG pO2 137.9 mmHg (83-108) H 10/13/20 07:18 ABG pO2 112.2 mm Hg (80.0-90.0) H 10/26/20 10:30 POC ABG HCO3 14.8 10/13/20 07:18 ABG HCO3 22.5 mmol/L (20.0-26.0) 10/26/20 10:30 ABG O2 Saturation 98.2 % (95.0-99.0) 10/26/20 10:30 ABG O2 Content 18.5 (0.0-44) 10/26/20 10:30 POC ABG Base Excess -6.9 10/13/20 07:18 ABG Base Excess -0.6 mmol/L (-2.0-3.0) 10/26/20 10:30 ABG Hemoglobin 13.5 gm/dl (12.0-16.0) 10/26/20 10:30 ABG Oxyhemoglobin 98.3 (94-98) H 10/13/20 07:18 ABG Carboxyhemoglobin 1.3 % (0.0-5.0) 10/26/20 10:30 ABG Methemoglobin 0.5 % (0.0-1.5) 10/26/20 10:30 ABG Sodium 135.9 mmol/L (136.0-145.0) L 10/13/20 07:18 ABG Potassium 3.7 mmol/L (3.40-4.50) 10/13/20 07:18 ABG Chloride 111.0 mmol/L (98-107) H 10/13/20 07:18 ABG Glucose 109 mg/dL (65-95) H 10/13/20 07:18 VBG pH 6.949 (7.320-7.420) L* 10/02/20 Unknown Oxyhemoglobin 96.5 % (95.0-99.0) 10/26/20 10:30 Carboxyhemoglobin 0.3 (0.5-1.5) L 10/13/20 07:18 FiO2 25 % 10/26/20 10:30 Sodium 143 mmol/L (137-145) 01/09/21 04:27 Potassium 3.9 mmol/L (3.6-5.0) 01/09/21 04:27 Chloride 105.4 mmol/L (98-107) 01/09/21 04:27 Carbon Dioxide 25 mmol/L (22-30) 01/09/21 04:27 Anion Gap 17 mmol/L 01/09/21 04:27 BUN 9 mg/dL (7-17) 01/09/21 04:27 Creatinine 0.5 mg/dL (0.6-1.2) L 01/09/21 04:27 Estimated GFR > 60 ml/min 01/09/21 04:27 BUN/Creatinine Ratio 18 % 01/09/21 04:27 Glucose 98 mg/dL (65-100) 01/09/21 04:27 POC Glucose 84 mg/dL (70-105) 01/16/21 06:28 Random Insulin 43.2 uIU/mL (<=19.6) H 11/02/20 19:19 Proinsulin See scanned result 11/02/20 19:19 C-Peptide 6.23 ng/mL (0.80-3.85) H 11/02/20 19:19 Lactic Acid 1.90 mmol/L (0.7-2.0) 10/04/20 22:00 Uric Acid 7.5 mg/dL (3.5-7.6) 10/02/20 13:05 Calcium 9.4 mg/dL (8.4-10.2) 01/09/21 04:27 Ionized Calcium 4.4 mg/dL (4.8-5.6) L 10/07/20 21:00 Phosphorus 4.60 mg/dL (2.5-4.5) H 11/13/20 10:05 Magnesium 2.10 mg/dL (1.7-2.3) 11/13/20 10:05 Total Bilirubin 0.40 mg/dL (0.1-1.2) 12/22/20 11:03 AST 45 units/L (5-40) H 12/22/20 11:03 ALT 33 units/L (7-56) 12/22/20 11:03 Alkaline Phosphatase 100 units/L (35-129) 12/22/20 11:03 Lactate Dehydrogenase 769 units/L (91-180) H 10/02/20 13:05 C-Reactive Protein 0.70 mg/dL (0.00-1.30) 11/11/20 13:50 NT-Pro-B Natriuret Pep 2788 pg/mL (0-450) H 10/04/20 10:00 Total Protein 7.5 g/dL (6.3-8.2) 12/22/20 11:03 Albumin 3.8 g/dL (3.9-5) L 12/22/20 11:03 Albumin/Globulin Ratio 1.0 % 12/22/20 11:03 Procalcitonin < 0.05 ng/mL (<0.15) 12/27/20 20:16 Arterial Blood Glucose 109 mg/dL (65-95) H 10/13/20 07:18 Arterial Blood Ionized Calcium 4.6 mg/dL (4.6-5.3) 10/13/20 07:18 Urine Color Kelsey (Yellow) 12/27/20 22:25 Urine Turbidity Cloudy (Clear) 12/27/20 22:25 Urine pH 7.0 (5.0-7.0) 12/27/20 22:25 Ur Specific [place] 1.018 (1.003-1.030) 12/27/20 22:25 Urine Protein 30 mg/dl mg/dL (Negative) 12/27/20 22:25 Urine Glucose (UA) Neg mg/dL (Negative) 12/27/20 22:25 Urine Ketones Neg mg/dL (Negative) 12/27/20 22:25 Urine Blood Sm (Negative) 12/27/20 22:25 Urine Nitrite Pos (Negative) 12/27/20 22:25 Urine Bilirubin Neg (Negative) 12/27/20 22:25 Urine Urobilinogen 2.0 mg/dL (<2.0) 12/27/20 22:25 Ur Leukocyte Esterase Lg (Negative) 12/27/20 22:25 Urine WBC (Auto) 5.0 /HPF (0.0-6.0) 12/27/20 22:25 Urine RBC (Auto) 22.0 /HPF (0.0-6.0) 12/27/20 22:25 U Epithel Cells (Auto) 16.0 /HPF (0-13.0) H 12/27/20 22:25 Urine Bacteria (Auto) 4+ /HPF (Negative) 12/27/20 22:25 Urine WBC Clumps 3+ /HPF 11/11/20 13:50 Calcium Oxalate Crystal Few 11/11/20 13:50 Urine Mucus 3+ /HPF 12/27/20 22:25 Urine Yeast (Budding) 2+ /HPF 12/10/20 09:25 Vancomycin Trough 12.6 ug/mL (5.0-20.0) 10/21/20 13:54 Random Vancomycin 10.7 ug/mL (0-40.0) 10/16/20 13:09 Phenytoin 5.7 ug/mL (10.0-20.0) L 10/13/20 07:00 C. difficile Tox (PCR) Positive (Negative) 10/16/20 10:22 Coronavirus (PCR) Negative (Negative) 10/08/20 14:15 Blood Type O POSITIVE 10/02/20 12:50 Antibody Screen Negative 10/02/20 12:50 Crossmatch See Detail 10/02/20 12:50 - Diagnostic Impressions Diagnostic Impressions: Echocardiogram 10/03/20 13:42 Transthoracic Echocardiogram Indication: S/P Cardiac Arrest R/O Cardiomyopathy BP: 133/71 Conclusions *Global left ventricular systolic function is normal. *The estimated ejection fraction is 60-65%. *There is trace of mitral regurgitation. *The right 0heart chambers are both slightly dilated. *There is mild tricuspid regurgitation. *There is mild-moderate pulmonary hypertension. *The right ventricular systolic pressure is calculated at 44 mmHg. *The study quality is technically difficult. Findings Procedure Info: The study quality is technically difficult. The study is technically limited due to patient body habitus. The study was technically limited due to the patient's inability to lay in the left lateral decubitus position. Left Ventricle: The left ventricular chamber size is normal. There is no left ventricular hypertrophy. Global left ventricular systolic function is normal. The estimated ejection fraction is 60-65%. Left Atrium: The left atrial chamber size is normal. Right Ventricle: The right ventricle is slightly dilated. Right Atrium: The right atrium is mildly dilated. Aortic Valve: The aortic valve leaflets are mildly thickened. There is no evidence of aortic regurgitation. There is no evidence of aortic stenosis. Mitral Valve: The mitral valve leaflets are mildly thickened. There is trace of mitral regurgitation. There is no evidence of mitral stenosis. Tricuspid Valve: There is mild tricuspid regurgitation. The right ventricular systolic pressure is calculated at 44 mmHg. There is evidence of mild pulmonary hypertension. Pulmonic Valve: There is trace pulmonic regurgitation. Pericardium: There is no pericardial effusion. Aorta: There is no dilatation of the ascending aorta. There is no dilatation of the aortic root. Venous: The inferior vena cava is dilated. Measurements Chambers 2D Name Value Normal Range IVSd (2D) 1 cm (0.6 - 1.1) LVPWd (2D) 1.01 cm (0.6 - 1.1) LVIDd (2D) 4.58 cm (3.7 - 5.6) LVIDs (2D) 3.17 cm (2 - 3.8) LV FS (2D) 30.93 % - EF Teichholz (2D) 58.66 % - Ao root diameter (2D) 2.94 cm (2 - 3.7) Volumes/Mass Name Value Normal Range LA ESV SP 4CH (A/L) 72.82 ml - LA ESV SP 2CH (A/L) 66.86 ml - LA ESV BP (A/L) 74.49 ml - LA ESV SP 4CH (MOD) 71.03 ml - LA ESV SP 2CH (MOD) 64.3 ml - LV EDV SP 4CH (MOD) 98.82 ml - LV ESV SP 4CH (MOD) 24.8 ml - EF SP 4CH (MOD) 74.9 % - LV EDV SP 2CH (MOD) 86.1 ml - LV ESV SP 2CH (MOD) 36.93 ml - EF SP 2CH (MOD) 57.11 % - LV EDV BP 94.4 ml - LV ESV BP 32.66 ml - BP EF (MOD) 65.4 % - Diastolic/Systolic Function Name Value Normal Range MV E-wave Vmax 1.04 m/sec - MV deceleration time 160.46 msec - MV A-wave Vmax 0.92 m/sec - MV E:A ratio 1.14 ratio - Aortic Valve Name Value Normal Range AV Vmax 2.12 m/sec - AV VTI 22.37 cm - AV peak gradient 17.95 mmHg - AV mean gradient 7.29 mmHg - LVOT diameter 2.01 cm - LVOT Vmax 1.8 m/sec - LVOT VTI 27.17 cm - LVOT peak gradient 12.91 mmHg - LVOT mean gradient 6.83 mmHg - SV LVOT 86.42 ml - ANITA (continuity Vmax) 2.7 cm2 - ANITA (continuity VTI) 3.86 cm2 - Ascending Ao 3.18 cm - Tricuspid Valve Name Value Normal Range TV E-wave Vmax 0.88 m/sec - TR Vmax 3.01 m/sec - TR peak gradient 36.27 mmHg - RAP 8 mmHg - RVSP 44 mmHg - IVC diameter 2.65 cm (1.2 - 2.3) Pulmonic Valve/Qp:Qs Name Value Normal Range PV Vmax 1.22 m/sec - PV peak gradient 5.91 mmHg - RVOT Vmax 0.87 m/sec - RVOT VTI 13.32 cm - RVOT peak gradient 3 mmHg - PV acceleration time 110.37 msec - [place]/IV: Voiding Method External Female Catheter IV Catheter Type [Right Foot] INT / Saline Lock IV Catheter Type [Left Forearm Peripheral IV ] IV Catheter Type [Left Wrist] INT / Saline Lock IV Catheter Type [Right Hand] INT / Saline Lock IV Catheter Type [Right INT / Saline Lock Antecubital] IV Catheter Type [Right Upper Mid-line arm] IV Catheter Type [Left Triple Lumen Cath Internal Jugular] IV Catheter Type [Left Hand] Peripheral IV IV Catheter Type [Left Peripheral IV Antecubital] Active Medications - Current Medications Current Medications: Generic Name Dose Route Start Last Admin Trade Name Freq PRN Reason Stop Dose Admin Acetaminophen 650 mg 10/05/20 16:34 01/10/21 22:48 Acetaminophen 325 Mg/10.15 Ml Oral Liqd Unit Dose FEEDTUBE 650 mg Q6H PRN Administration Non Cardiac Pain or Temp>100.5 Albuterol 2.5 mg 11/05/20 13:03 11/06/20 13:04 Albuterol 2.5 Mg/3 Ml Nebu IH 2.5 mg Q4HRT PRN Administration Shortness Of Breath Lipase/Protease/Amylase 1 each 10/05/20 11:09 Lipase 10,500/Protease 25,000/Amylase 43,750 (Units) Dr Barakat FEEDTUBE PRN PRN For Clogged Feeding Tube Enoxaparin Sodium 40 mg 10/22/20 10:00 01/15/21 09:12 Enoxaparin 40 Mg/0.4 Ml Inj SUB-Q 40 mg DAILY ERINN Administration Protocol Famotidine 20 mg 10/07/20 10:00 01/15/21 21:37 Famotidine 20 Mg Tab PO 20 mg BID ERINN Administration Hydralazine HCl 20 mg 10/07/20 11:49 10/17/20 07:20 Hydralazine 20 Mg/1 Ml Inj IV 20 mg Q6H PRN Administration SBP >170 Hydrophilic Ointment 1 applic 01/03/21 13:00 Lip Therapy Vaseline TP DIRECT PRN Dry Lips Dextrose 1,000 mls @ 30 mls/hr 01/03/21 12:00 01/15/21 16:05 D5w IV 75 mls/hr DIRECT ERINN Administration Metoprolol Tartrate 25 mg 01/08/21 22:00 01/15/21 22:22 Metoprolol Tartrate 25 Mg Tab PO 25 mg BID ERINN Administration Polyethylene Glycol 17 gm 12/27/20 15:07 12/28/20 10:05 Polyethylene Glycol 3350 17 Gm Powder PO 17 gm QDAY PRN Administration Constipation Simple Syrup 15 ml 10/05/20 11:09 Simple Syrup 15 Ml FEEDTUBE PRN PRN Hypoglycemia Simple Syrup 30 ml 10/05/20 11:09 Simple Syrup 15 Ml FEEDTUBE PRN PRN Hypoglycemia Sodium Bicarbonate 325 mg 10/05/20 11:09 12/16/20 08:19 Sodium Bicarbonate 325 Mg Tab FEEDTUBE 325 mg PRN PRN Administration For Clogged Feeding Tube Nutrition/Malnutrition Assess - Dietary Evaluation Nutrition/Malnutrition Findings: Nutrition Notes Start: 10/04/20 11:13 Freq: Status: Active Protocol: Document 01/11/21 15:00 BREANNA (Rec: 01/11/21 15:07 BREANNA [id number]) Nutrition Notes Initial or Follow up Reassessment Current Diagnosis Respiratory Failure Other Pertinent Diagnosis C-Diff, s/p VT, s/p and supracervical hysterectomy Current Diet TF - Jevity 1.2 at 60 mL/hr Labs/Tests Na 143 (01/09) Pertinent Medications D5W at 30ml/hr Height 5 ft 8 in Weight 88.6 kg [place] Body Weight (kg) 63.63 BMI 29.7 Weight Status Overweight Subjective/Other Information Spoke with RN via phone at 14: 48. Pt tolerating TF at goal rate; receives 100ml water flush q4h. Pt awaiting placement. Percent of energy/protein needs met: 87% energy 100% pro Burn Absent Trauma Absent #2 Nutrition Diagnosis Malnutrition Diagnosis Progress(for reassessment Continues documentation) #1 Nutrition Diagnosis Inadequate oral intake Diagnosis Progress(for reassessment Continues documentation) Is patient on ventilator? No Is Patient Ambulatory and/or Out of Bed No REE-([facility]-confined to bed) 1975.404 Calculation Used for Recommendations [facility] Additional Notes Pro needs 0.8-1g/k-89g/ day Fluid needs 1ml/kcal Nutrition Intervention Nutrition Support: Continue Jevity 1.2 at 60ml/hr . Flush 100ml q4h. Kcal 1,728 Protein (gm) 80 Fluid (mL) 1,162 Goal #1 TF tolerance Goal #2 TF to meet at least 75% energy and pro needs Follow-Up By: 01/18/21 Additional Comments F/U: stable TF, wt
[2021-01-16] MEDS: ENOXAPARIN 40 MG/0.4 ML INJ SUB-Q SCH (10:06)
[2021-01-16] MEDS: FAMOTIDINE 20 MG TAB PO SCH ×2 (10:06→22:13)
[2021-01-16] MEDS: METOPROLOL TARTRATE 25 MG TAB PO SCH ×2 (10:06→23:00)
[2021-01-17] MEDS: DEXTROSE 5% IN WATER 1,000 ML IV SCH (00:24)
--- NOTE | 2021-01-17 09:07 | Progress Note ---
Assessment and Plan Assessment and plan: --DIC (disseminated intravascular coagulation) vs HELLP syndrome Resolved --Possible Eclampsia/HELLP Syndrome Resolved --s/p Cardiac arrest x2 on admission and on 10/07 ACLS protocol followed by revival Echo showed preserved Ef --Anoxic brain injury, Developed following cardiac arrest, continue supportive care --Shock-resolved now awaiting placement s/p pressor support --ADOLPH-resolved Stable --Sepsis 2/2 UTI s/p cefepime to cover possible pseudomonas as sputum is also growing GN rods till 01/04/21 Previous urine culture grew pansensitive ecoli Blood cultures from 12/27-no growth --Hypernatremia, resolved, cont free water with TF --DVT prophylaxis Patient presented with DIC No anticoagulants Overall prognosis extremely poor. Daily clinical course 10/02/21 11:30: Pt brought to L&D triage for evaluation of possible labor. Pt accompanied by her spouse. Pt spouse poor historian; unable to obtain history- allergies at this time. Pt taken from registration to triage area via WC. Pt unresponsive, actively seizing with snorous respirations. sheeting puller, Kassy, called and requesting assistance. 11:35: Multiple staff at bedside. Pt 02 sat 67% on nonrebreather, unable to read BP at this time. Yifan Theodore CRNA, at bedside for intubation and assistance with IV insertion. INT attempt by multiple RNs unsuccessful at this time. 11:42: Pt being bagged by KORIN, 02% 79%. No pulse palpated, compressions started at this time; bharati young called and Dr. Newberry preparing OR for emergent c/s. 11:44: Continued compressions on stretcher while transporting pt to OR 1. Pt being bagged with jaw thrust manuever in place by KORIN Stringer student. 11:45: Arrival to OR 1. Dr. Newberry and Dr. Portillo present for emergent c/s. Code team arrived for continued care. patient revived and c/s done Patient has been bleeding from C/s site followed by supracervical hysterectomy for severe bleeding Patient transfused multiple units of PRBC, Patient in DIC. Transferred to the [facility] 10/03. Patient seen and examined at bedside this morning. Patient is nonresponsive and mechanically ventilated. On pressors. Labs reviewed-has leukocytosis, anemia, thrombocytopenia, ADOLPH and lactic acidosis. Started on IV antibiotics to cover possible sepsis secondary to DIC. Hematology oncology recommendations appreciated-needs additional cryoprecipitate and FFP. Monitor D-dimer, fibrinogen and frequent labs. Nephrology consulted for lactic acidosis and ADOLPH. 10/04. Remains mechanically ventilated. [place] antibiotics. Labs shows improved acidosis - lactic acid 3.5. Hb drop noted. Getting transfused 2 units PRBCs. Platelet count is ~40k. Continue to monitor labs closely. Critical care team on board. 10/05; xray reviewed, concerning for multifocal infilrate, likely underlying P[place] um[place], will add ID consult to assist with management of this critically ill patient, start tube feed, closely monitor renal system 10/06: Resumed care, remains on mechanical ventilation. No active bleeding, H&H stable. Continue to monitor CBC and BMP. Continue IV antibiotic for underlying pneumonia. Follow critical care and ID recommendation. 10/07: Remains on mechanical ventilation. No active bleeding, H&H stable. Critical care following, wean off ventilation as tolerated. 10/08: Patient had another cardiac arrest last night. Remains on mechanical ventilation, update family. Continue supportive care -poor prognosis 10/09: Called patient mother and discussed about patient care and management. Answered all question to best of my knowledge and family satisfaction. Patient remains on mechanical ventilation, cardiac arrest x2 so far. Critically sick, poor prognosis 10/10: remains on mechanical ventilation. h/h stable, no active bleeding. monitor CBC/BMP 10/11: WBC trended up with diarrhea, started on vancomycin po. remains on MV, off pressor, tolerating TF 10/12: remains on MV, off pressor, tolerating TF. called family for update but unable to reach, could not leave message as it was full. cont supportive care, wean off vent as tolerated. 10/13/2020; patient is on mechanical ventilation, tolerating tube feeding. Patient has labored breathing. Neuro was consulted and recommend MRI. Patient is on Precedex. Rectal tube in place. 10/14/2020; patient is on mechanical ventilation, Precedex. Patient had fever and blood culture ordered. Patient is on IV vancomycin per ID recommendation. Neuro consulted and recommend MRI. Continue to monitor. Prognosis is guarded. 10/15/2020; patient is on mechanical ventilation, Precedex. Patient had fever and blood culture ordered. Patient is on IV vancomycin per ID recommendation. Neuro consulted and recommend MRI. Continue to monitor. Prognosis is guarded. 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 12/06/20; anoxic brain injury. Awaiting placement. 12/07/2020; anoxic brain injury, awaiting placement. 12/09/2020; anoxic brain injury, awaiting placement. 12/10/2020; patient had episodes of fever overnight. CBC, BMP, blood culture, UA and chest x-ray ordered, will follow and manage accordingly. Urinalysis is suggestive of UTI and I put the patient on ceftriaxone, order urine culture. Chest x-ray is normal. 12/11/2020; patient is on ceftriaxone day 2 for UTI. We will continue to follow urine culture. 12/12/2020. Day #3 of Rocephin for UTI. We will continue for 2 more days while she is here. Present UTI. 12/13/2020. Day #4 of Rocephin for UTI. Patient remains on 50% with tracheost jayne. Remains unresponsive with evidence of anoxic encephalopathy unable to make needs known. 12/14/2020. Day #5 of Rocephin for UTI completed today. Remains encephalopathic unable to make needs known. Remains on 50% unable to decrease oxygen via tracheostomy. Overall prognosis remains extremely poor. 3: Continue to monitor. Stop and monitor antibiotics at this time. Continue to wean oxygen as tolerated. Wean oxygen as tolerated. Case management working on placement. 12/16: Continue supportive care aspiration precautions. Awaiting placement discussion. Monitor fever curve. Prognosis remains poor no evidence of neurological recovery as of today 3: Continue supportive care, check labs and chest xray. Still monitor off antibiotics. Monitor Sodium level 12/18: Patient remains with intermittent low grade fever, reviewed EEG from September again, consistent for Ischemic Hypoxic Encephalopathy, patient with decorticating posturing type presentation. Will discuss with biomedical engineering director to opt imize diet so we can discontinue D5. CXR with no abnormality. Discussed extensively with the nursing staff at bedside CXR IMPRESSION: 1. No acute findings. 12/19: No clinical change 12/20: No clinical change, now off abx, monitor, discussed her medications with our pharmacist I believe that her posture and rigidity is likely from underlying anoxic encephalopathy. Continue to monitor and await placement decision. Continue aggressive suctioning. Plan discussed in detail with the nursing staff 12/21: Continue supportive care. Will give 500 cc bolus of fluid today to replace insensible losses. Tachycardia appears to be improving. Blood pressure precludes adjusting cardiac meds. Still awaiting placement from case management. Plan discussed in detail with the nursing staff 12/22. Continue support supportive care. Tracheostomy and PEG in place. Remains nonresponsive. Awaiting placement. 12/23. Continue support supportive care. Tracheostomy and PEG in place. Remains nonresponsive. Awaiting placement. Remains tachycardic. Decrease dose of lasix. Will try low dose metoprolol. Monitor BP closely 12/24. Continue support supportive care. Tracheostomy and PEG in place. Remains nonresponsive. Awaiting placement. Heart rate slightly better. Continue to monitor BP closely 12/25. Continue support supportive care. Tracheostomy and PEG in place. Remains nonresponsive. Awaiting placement. 12/26. Continue support supportive care. Tracheostomy and PEG in place. Remains nonresponsive. Awaiting placement 12/27. Continue support supportive care. Tracheostomy and PEG in place. Remains nonresponsive. Awaiting placement 12/28. Had fever yesterday. Blood culture drawn. UA - UTI - started on antibiotics. Now tracheal aspirate is growing GN rods. 12/29: Continue IV antibiotics, continue supportive care. Since admission patient has shown minimal or no chance of neurological recovery. Need 24/7 assistance. Currently on trach and PEG, nonverbal. Waiting on SNF placement. Discussed with pillowcase sewer today. 12/30: Continue IV antibiotics for UTI, continue supportive care. Pending placement 12/31: continue supportive care. continue supportive care. Pending placement 01/01: continue supportive care. Pending placement. cont Iv abx for UTI till 01/04 01/02: Continue supportive care, pending placement. Sodium level slightly elevated, will start hypotonic fluid. Continue antibiotics till 01/04 01/03; cont hypotonic fluid, increase free water with TF for hypernatremia, follow BMP. cont supportive care. pending placement. cont cefepime. recx blood 01/04: resolved hyponatremia, cont supportive care, pending placement. Last day of supplement today. 01/05: Continue supportive care, pending placement. Monitor H&H and fever curve off antibiotic. 01/06; monitor off abx, suction as needed, Continue supportive care, pending placement. 01/07: Discharge pending on placement, vitals stable. Continue supportive care 01/08: Discharge pending on placement, vitals stable. Continue supportive care. stop lasix, increase metoprolol to 25mg BID for ST. 01/09 patient resting with eyes closed. Opens eyes to tactile stimulus, has a blink reflex, does not follow simple commands, has a T-collar / G-tube Lab results reviewed, low-grade fever, 01/10 Eyes open, does not follow simple commands, no acute events overnight 01/11 no acute events overnight Waiting for placement 01/12 No acute events overnight. Patient awaiting for placement 01/13. No new issues. Awaiting placement 01/14. No new issues. Awaiting placement. 01/15. No new issues. Awaiting placement. 01/16. No new issues. Patient remain stable. Awaiting placement. Check maintenance labs. 01/17. Routine maintenance labs were ordered and are still pending. Await placement. History Interval history: 30 year old -[place] Citizen female CHE 10/25/20 at 36w5d who presents with seizures in triage on 10/02/20. Pt was not able to provide history but per pt's , she presented to the hospital to return a 24 hour urine specimen for analysis. She then suddenly reported that she did not feel good. She was taken to labor and delivery and shortly after arrival, she began seizing. During this time, a code met was called because the patient became hypoxic. She was then noted to be without a pulse. Chest compressions were started immediately, and the patient was emergently taken to the operating room for delivery of the fetus. Off note, This patient has had care at [facility] with comanagement by [facility] since 11 wks complicated by ADHD, morbid obesity, generalized anxiety disorder, panic attacks, chronic narcotic use, fibromyalgia, GERD, Irritable Bowel Syndrome, Migraines, h/o endometrial ablation and ovarian vein embolization, genital herpes, insomnia, LGA fetus, nausea and vomiting, polyhydramnios, quad screen positive for Down's Syndrome, and previous x 3. She was GBS negative. Hospitalist Physical - Constitutional Vitals: Temp Pulse Resp BP Pulse Ox 98.7 F 108 H 18 99/62 97 01/16/21 21:51 01/16/21 23:00 01/16/21 21:51 01/16/21 23:00 01/16/21 21:51 General appearance: Present: other (Persistent vegetative state) - EENT Eyes: Present: PERRL, EOM intact ENT: hearing intact, clear oral mucosa, dentition normal - Neck Neck: Present: supple, normal ROM - Respiratory Respiratory effort: normal Respiratory: bilateral: CTA - Cardiovascular Rhythm: regular Heart Sounds: Present: S1 & S2. Absent: gallop, rub - Extremities Extremities: no ischemia, No edema, Full ROM - Abdominal General gastrointestinal: soft, non-tender, non-distended, normal bowel sounds - Integumentary Integumentary: Present: clear, warm, dry - Neurologic Neurologic: CNII-XII intact, moves all extremities HEART Score - HEART Score Age: < 45 Risk factors: 1-2 risk factors - Critical Actions Critical Actions: >7 pts:50-65% risk of adverse cardiac event. Early invasive measures Results - Labs CBC & Chem 7: 01/09/21 04:27 01/09/21 04:27 Labs: Laboratory Last Values WBC 8.7 K/mm3 (4.5-11.0) 01/09/21 04:27 RBC 5.22 M/mm3 (3.65-5.03) H 01/09/21 04:27 Hgb 12.9 gm/dl (10.1-14.3) 01/09/21 04:27 Hgb Comment See scanned result 10/04/20 Unknown Hct 39.7 % (30.3-42.9) 01/09/21 04:27 MCV 76 fl (79-97) L 01/09/21 04:27 MCH 25 pg (28-32) L 01/09/21 04:27 MCHC 32 % (30-34) 01/09/21 04:27 RDW 14.4 % (13.2-15.2) 01/09/21 04:27 Plt Count 210 K/mm3 (140-440) 01/09/21 04:27 Lymph % (Auto) 25.8 % (13.4-35.0) 01/09/21 04:27 Mccone % (Auto) 9.7 % (0.0-7.3) H 01/09/21 04:27 Eos % (Auto) 1.1 % (0.0-4.3) 01/09/21 04:27 Baso % (Auto) 0.4 % (0.0-1.8) 01/09/21 04:27 Lymph # (Auto) 2.2 K/mm3 (1.2-5.4) 01/09/21 04:27 Mccone # (Auto) 0.8 K/mm3 (0.0-0.8) 01/09/21 04:27 Eos # (Auto) 0.1 K/mm3 (0.0-0.4) 01/09/21 04:27 Baso # (Auto) 0.0 K/mm3 (0.0-0.1) 01/09/21 04:27 Add Manual Diff Complete 12/10/20 09:37 Total Counted 100 12/10/20 09:37 Seg Neutrophils % 63.0 % (40.0-70.0) 01/09/21 04:27 Seg Neuts % (Manual) 81.0 % (40.0-70.0) H 12/10/20 09:37 Band Neutrophils % 2.0 % 10/15/20 05:50 Lymphocytes % (Manual) 17.0 % (13.4-35.0) 12/10/20 09:37 Reactive Lymphs % (Man) 1.0 % 10/02/20 12:18 Monocytes % (Manual) 2.0 % (0.0-7.3) 12/10/20 09:37 Eosinophils % (Manual) 1.0 % (0.0-4.3) 10/29/20 07:56 Myelocytes % 2.0 % 10/02/20 13:05 Metamyelocytes % 1.0 % 10/14/20 04:00 Nucleated RBC % Not Reportable 12/10/20 09:37 Seg Neutrophils # 5.5 K/mm3 (1.8-7.7) 01/09/21 04:27 Seg Neutrophils # Man 10.1 K/mm3 (1.8-7.7) H 12/10/20 09:37 Band Neutrophils # 0.0 K/mm3 12/10/20 09:37 Lymphocytes # (Manual) 2.1 K/mm3 (1.2-5.4) 12/10/20 09:37 Abs React Lymphs (Man) 0.0 K/mm3 12/10/20 09:37 Monocytes # (Manual) 0.3 K/mm3 (0.0-0.8) 12/10/20 09:37 Eosinophils # (Manual) 0.0 K/mm3 (0.0-0.4) 12/10/20 09:37 Basophils # (Manual) 0.0 K/mm3 (0.0-0.1) 12/10/20 09:37 Metamyelocytes # 0.0 K/mm3 12/10/20 09:37 Myelocytes # 0.0 K/mm3 12/10/20 09:37 Promyelocytes # 0.0 K/mm3 12/10/20 09:37 Blast Cells # 0.0 K/mm3 12/10/20 09:37 WBC Morphology Not Reportable 12/10/20 09:37 Hypersegmented Neuts Not Reportable 12/10/20 09:37 Hyposegmented Neuts Not Reportable 12/10/20 09:37 Hypogranular Neuts Not Reportable 12/10/20 09:37 Smudge Cells Not Reportable 12/10/20 09:37 Toxic Granulation Not Reportable 12/10/20 09:37 Toxic Vacuolation Not Reportable 12/10/20 09:37 Dohle Bodies Not Reportable 12/10/20 09:37 Pelger-Huet Anomaly Not Reportable 12/10/20 09:37 Ester Rods Not Reportable 12/10/20 09:37 Platelet Estimate Consistent w auto 12/10/20 09:37 Clumped Platelets Not Reportable 12/10/20 09:37 Plt Clumps, EDTA Not Reportable 12/10/20 09:37 Large Platelets Not Reportable 12/10/20 09:37 Giant Platelets Not Reportable 12/10/20 09:37 Platelet Satelliting Not Reportable 12/10/20 09:37 Plt Morphology Comment Not Reportable 12/10/20 09:37 RBC Morphology Normal 12/10/20 09:37 Dimorphic RBCs Not Reportable 12/10/20 09:37 Polychromasia Not Reportable 12/10/20 09:37 Hypochromasia 1+ 12/10/20 09:37 Poikilocytosis Not Reportable 12/10/20 09:37 Anisocytosis Not Reportable 12/10/20 09:37 Microcytosis Not Reportable 12/10/20 09:37 Macrocytosis Not Reportable 12/10/20 09:37 Spherocytes Not Reportable 12/10/20 09:37 Pappenheimer Bodies Not Reportable 12/10/20 09:37 Sickle Cells Not Reportable 12/10/20 09:37 Target Cells Not Reportable 12/10/20 09:37 Tear Drop Cells Not Reportable 12/10/20 09:37 Ovalocytes Not Reportable 12/10/20 09:37 Stomatocytes Few 10/14/20 04:00 Helmet Cells Not Reportable 12/10/20 09:37 Burk-Girdletree Bodies Not Reportable 12/10/20 09:37 [place] Rings Not Reportable 12/10/20 09:37 Antoine Cells Not Reportable 12/10/20 09:37 Bite Cells Not Reportable 12/10/20 09:37 Crenated Cell Not Reportable 12/10/20 09:37 Elliptocytes Not Reportable 12/10/20 09:37 Acanthocytes (Spur) Not Reportable 12/10/20 09:37 Rouleaux Not Reportable 12/10/20 09:37 Hemoglobin C Crystals Not Reportable 12/10/20 09:37 Schistocytes Not Reportable 12/10/20 09:37 Malaria parasites Not Reportable 12/10/20 09:37 Sickle Cell Solubility See scanned result 10/04/20 Unknown Hemoglobin A See scanned result 10/04/20 Unknown Hemoglobin A2 See scanned result 10/04/20 Unknown Hemoglobin A2 Prime See scanned result 10/04/20 Unknown Hemoglobin C See scanned result 10/04/20 Unknown Hemoglobin D See scanned result 10/04/20 Unknown Hemoglobin E See scanned result 10/04/20 Unknown Hgb F Diffential Stain See scanned result 10/04/20 Unknown Hemoglobin F Quant See scanned result 10/04/20 Unknown Hemoglobin G See scanned result 10/04/20 Unknown Hemoglobin S See scanned result 10/04/20 Unknown Hemoglobin O-Peterson See scanned result 10/04/20 Unknown Hemoglobin Barts See scanned result 10/04/20 Unknown Hemoglobin Analilia See scanned result 10/04/20 Unknown Variant Hemoglobin See scanned result 10/04/20 Unknown Abnorm Hgb IEF Confirm See scanned result 10/04/20 Unknown Hemoglobin Interpret See scanned result 10/04/20 Unknown Hemoglobinopathy Note See scanned result 10/04/20 Unknown Sharad Bodies Not Reportable 12/10/20 09:37 Hem Pathologist Commnt No 12/10/20 09:37 PT 13.6 Sec. (12.2-14.9) 10/21/20 13:54 INR 1.06 (0.87-1.13) 10/21/20 13:54 APTT 31.6 Sec. (24.2-36.6) 10/03/20 00:40 Fibrinogen 336 mg/dl (211-480) 10/04/20 10:00 D-Dimer 1974.47 ng/mlDDU (0-234) H 11/11/20 13:50 ABG pH 7.459 pH Units (7.350-7.450) H 10/26/20 10:30 POC ABG pCO2 20.7 mmHg (32.0-48.0) L 10/13/20 07:18 ABG pCO2 32.4 mm Hg 10/26/20 10:30 POC ABG pO2 137.9 mmHg (83-108) H 10/13/20 07:18 ABG pO2 112.2 mm Hg (80.0-90.0) H 10/26/20 10:30 POC ABG HCO3 14.8 10/13/20 07:18 ABG HCO3 22.5 mmol/L (20.0-26.0) 10/26/20 10:30 ABG O2 Saturation 98.2 % (95.0-99.0) 10/26/20 10:30 ABG O2 Content 18.5 (0.0-44) 10/26/20 10:30 POC ABG Base Excess -6.9 10/13/20 07:18 ABG Base Excess -0.6 mmol/L (-2.0-3.0) 10/26/20 10:30 ABG Hemoglobin 13.5 gm/dl (12.0-16.0) 10/26/20 10:30 ABG Oxyhemoglobin 98.3 (94-98) H 10/13/20 07:18 ABG Carboxyhemoglobin 1.3 % (0.0-5.0) 10/26/20 10:30 ABG Methemoglobin 0.5 % (0.0-1.5) 10/26/20 10:30 ABG Sodium 135.9 mmol/L (136.0-145.0) L 10/13/20 07:18 ABG Potassium 3.7 mmol/L (3.40-4.50) 10/13/20 07:18 ABG Chloride 111.0 mmol/L (98-107) H 10/13/20 07:18 ABG Glucose 109 mg/dL (65-95) H 10/13/20 07:18 VBG pH 6.949 (7.320-7.420) L* 10/02/20 Unknown Oxyhemoglobin 96.5 % (95.0-99.0) 10/26/20 10:30 Carboxyhemoglobin 0.3 (0.5-1.5) L 10/13/20 07:18 FiO2 25 % 10/26/20 10:30 Sodium 143 mmol/L (137-145) 01/09/21 04:27 Potassium 3.9 mmol/L (3.6-5.0) 01/09/21 04:27 Chloride 105.4 mmol/L (98-107) 01/09/21 04:27 Carbon Dioxide 25 mmol/L (22-30) 01/09/21 04:27 Anion Gap 17 mmol/L 01/09/21 04:27 BUN 9 mg/dL (7-17) 01/09/21 04:27 Creatinine 0.5 mg/dL (0.6-1.2) L 01/09/21 04:27 Estimated GFR > 60 ml/min 01/09/21 04:27 BUN/Creatinine Ratio 18 % 01/09/21 04:27 Glucose 98 mg/dL (65-100) 01/09/21 04:27 POC Glucose 102 mg/dL (70-105) 01/16/21 22:51 Random Insulin 43.2 uIU/mL (<=19.6) H 11/02/20 19:19 Proinsulin See scanned result 11/02/20 19:19 C-Peptide 6.23 ng/mL (0.80-3.85) H 11/02/20 19:19 Lactic Acid 1.90 mmol/L (0.7-2.0) 10/04/20 22:00 Uric Acid 7.5 mg/dL (3.5-7.6) 10/02/20 13:05 Calcium 9.4 mg/dL (8.4-10.2) 01/09/21 04:27 Ionized Calcium 4.4 mg/dL (4.8-5.6) L 10/07/20 21:00 Phosphorus 4.60 mg/dL (2.5-4.5) H 11/13/20 10:05 Magnesium 2.10 mg/dL (1.7-2.3) 11/13/20 10:05 Total Bilirubin 0.40 mg/dL (0.1-1.2) 12/22/20 11:03 AST 45 units/L (5-40) H 12/22/20 11:03 ALT 33 units/L (7-56) 12/22/20 11:03 Alkaline Phosphatase 100 units/L (35-129) 12/22/20 11:03 Lactate Dehydrogenase 769 units/L (91-180) H 10/02/20 13:05 C-Reactive Protein 0.70 mg/dL (0.00-1.30) 11/11/20 13:50 NT-Pro-B Natriuret Pep 2788 pg/mL (0-450) H 10/04/20 10:00 Total Protein 7.5 g/dL (6.3-8.2) 12/22/20 11:03 Albumin 3.8 g/dL (3.9-5) L 12/22/20 11:03 Albumin/Globulin Ratio 1.0 % 12/22/20 11:03 Procalcitonin < 0.05 ng/mL (<0.15) 12/27/20 20:16 Arterial Blood Glucose 109 mg/dL (65-95) H 10/13/20 07:18 Arterial Blood Ionized Calcium 4.6 mg/dL (4.6-5.3) 10/13/20 07:18 Urine Color Kelsey (Yellow) 12/27/20 22:25 Urine Turbidity Cloudy (Clear) 12/27/20 22:25 Urine pH 7.0 (5.0-7.0) 12/27/20 22:25 Ur Specific [employer] 1.018 (1.003-1.030) 12/27/20 22:25 Urine Protein 30 mg/dl mg/dL (Negative) 12/27/20 22:25 Urine Glucose (UA) Neg mg/dL (Negative) 12/27/20 22:25 Urine Ketones Neg mg/dL (Negative) 12/27/20 22:25 Urine Blood Sm (Negative) 12/27/20 22:25 Urine Nitrite Pos (Negative) 12/27/20 22:25 Urine Bilirubin Neg (Negative) 12/27/20 22:25 Urine Urobilinogen 2.0 mg/dL (<2.0) 12/27/20 22:25 Ur Leukocyte Esterase Lg (Negative) 12/27/20 22:25 Urine WBC (Auto) 5.0 /HPF (0.0-6.0) 12/27/20 22:25 Urine RBC (Auto) 22.0 /HPF (0.0-6.0) 12/27/20 22:25 U Epithel Cells (Auto) 16.0 /HPF (0-13.0) H 12/27/20 22:25 Urine Bacteria (Auto) 4+ /HPF (Negative) 12/27/20 22:25 Urine WBC Clumps 3+ /HPF 11/11/20 13:50 Calcium Oxalate Crystal Few 11/11/20 13:50 Urine Mucus 3+ /HPF 12/27/20 22:25 Urine Yeast (Budding) 2+ /HPF 12/10/20 09:25 Vancomycin Trough 12.6 ug/mL (5.0-20.0) 10/21/20 13:54 Random Vancomycin 10.7 ug/mL (0-40.0) 10/16/20 13:09 Phenytoin 5.7 ug/mL (10.0-20.0) L 10/13/20 07:00 C. difficile Tox (PCR) Positive (Negative) 10/16/20 10:22 Coronavirus (PCR) Negative (Negative) 10/08/20 14:15 Blood Type O POSITIVE 10/02/20 12:50 Antibody Screen Negative 10/02/20 12:50 Crossmatch See Detail 10/02/20 12:50 - Diagnostic Impressions Diagnostic Impressions: Echocardiogram 10/03/20 13:42 Transthoracic Echocardiogram Indication: S/P Cardiac Arrest R/O Cardiomyopathy BP: 133/71 Conclusions *Global left ventricular systolic function is normal. *The estimated ejection fraction is 60-65%. *There is trace of mitral regurgitation. *The right 0heart chambers are both slightly dilated. *There is mild tricuspid regurgitation. *There is mild-moderate pulmonary hypertension. *The right ventricular systolic pressure is calculated at 44 mmHg. *The study quality is technically difficult. Findings Procedure Info: The study quality is technically difficult. The study is technically limited due to patient body habitus. The study was technically limited due to the patient's inability to lay in the left lateral decubitus position. Left Ventricle: The left ventricular chamber size is normal. There is no left ventricular hypertrophy. Global left ventricular systolic function is normal. The estimated ejection fraction is 60-65%. Left Atrium: The left atrial chamber size is normal. Right Ventricle: The right ventricle is slightly dilated. Right Atrium: The right atrium is mildly dilated. Aortic Valve: The aortic valve leaflets are mildly thickened. There is no evidence of aortic regurgitation. There is no evidence of aortic stenosis. Mitral Valve: The mitral valve leaflets are mildly thickened. There is trace of mitral regurgitation. There is no evidence of mitral stenosis. Tricuspid Valve: There is mild tricuspid regurgitation. The right ventricular systolic pressure is calculated at 44 mmHg. There is evidence of mild pulmonary hypertension. Pulmonic Valve: There is trace pulmonic regurgitation. Pericardium: There is no pericardial effusion. Aorta: There is no dilatation of the ascending aorta. There is no dilatation of the aortic root. Venous: The inferior vena cava is dilated. Measurements Chambers 2D Name Value Normal Range IVSd (2D) 1 cm (0.6 - 1.1) LVPWd (2D) 1.01 cm (0.6 - 1.1) LVIDd (2D) 4.58 cm (3.7 - 5.6) LVIDs (2D) 3.17 cm (2 - 3.8) LV FS (2D) 30.93 % - EF Teichholz (2D) 58.66 % - Ao root diameter (2D) 2.94 cm (2 - 3.7) Volumes/Mass Name Value Normal Range LA ESV SP 4CH (A/L) 72.82 ml - LA ESV SP 2CH (A/L) 66.86 ml - LA ESV BP (A/L) 74.49 ml - LA ESV SP 4CH (MOD) 71.03 ml - LA ESV SP 2CH (MOD) 64.3 ml - LV EDV SP 4CH (MOD) 98.82 ml - LV ESV SP 4CH (MOD) 24.8 ml - EF SP 4CH (MOD) 74.9 % - LV EDV SP 2CH (MOD) 86.1 ml - LV ESV SP 2CH (MOD) 36.93 ml - EF SP 2CH (MOD) 57.11 % - LV EDV BP 94.4 ml - LV ESV BP 32.66 ml - BP EF (MOD) 65.4 % - Diastolic/Systolic Function Name Value Normal Range MV E-wave Vmax 1.04 m/sec - MV deceleration time 160.46 msec - MV A-wave Vmax 0.92 m/sec - MV E:A ratio 1.14 ratio - Aortic Valve Name Value Normal Range AV Vmax 2.12 m/sec - AV VTI 22.37 cm - AV peak gradient 17.95 mmHg - AV mean gradient 7.29 mmHg - LVOT diameter 2.01 cm - LVOT Vmax 1.8 m/sec - LVOT VTI 27.17 cm - LVOT peak gradient 12.91 mmHg - LVOT mean gradient 6.83 mmHg - SV LVOT 86.42 ml - ANITA (continuity Vmax) 2.7 cm2 - ANITA (continuity VTI) 3.86 cm2 - Ascending Ao 3.18 cm - Tricuspid Valve Name Value Normal Range TV E-wave Vmax 0.88 m/sec - TR Vmax 3.01 m/sec - TR peak gradient 36.27 mmHg - RAP 8 mmHg - RVSP 44 mmHg - IVC diameter 2.65 cm (1.2 - 2.3) Pulmonic Valve/Qp:Qs Name Value Normal Range PV Vmax 1.22 m/sec - PV peak gradient 5.91 mmHg - RVOT Vmax 0.87 m/sec - RVOT VTI 13.32 cm - RVOT peak gradient 3 mmHg - PV acceleration time 110.37 msec - [place]/IV: Voiding Method External Female Catheter IV Catheter Type [Right Foot] INT / Saline Lock IV Catheter Type [Left Forearm Peripheral IV ] IV Catheter Type [Left Wrist] INT / Saline Lock IV Catheter Type [Right Hand] INT / Saline Lock IV Catheter Type [Right INT / Saline Lock Antecubital] IV Catheter Type [Right Upper Mid-line arm] IV Catheter Type [Left Triple Lumen Cath Internal Jugular] IV Catheter Type [Left Hand] Peripheral IV IV Catheter Type [Left Peripheral IV Antecubital] Active Medications - Current Medications Current Medications: Generic Name Dose Route Start Last Admin Trade Name Freq PRN Reason Stop Dose Admin Acetaminophen 650 mg 10/05/20 16:34 01/10/21 22:48 Acetaminophen 325 Mg/10.15 Ml Oral Liqd Unit Dose FEEDTUBE 650 mg Q6H PRN Administration Non Cardiac Pain or Temp>100.5 Albuterol 2.5 mg 11/05/20 13:03 11/06/20 13:04 Albuterol 2.5 Mg/3 Ml Nebu IH 2.5 mg Q4HRT PRN Administration Shortness Of Breath Lipase/Protease/Amylase 1 each 10/05/20 11:09 Lipase 10,500/Protease 25,000/Amylase 43,750 (Units) Dr Barakat FEEDTUBE PRN PRN For Clogged Feeding Tube Enoxaparin Sodium 40 mg 10/22/20 10:00 01/16/21 10:06 Enoxaparin 40 Mg/0.4 Ml Inj SUB-Q 40 mg DAILY ERINN Administration Protocol Famotidine 20 mg 10/07/20 10:00 01/16/21 22:13 Famotidine 20 Mg Tab PO 20 mg BID ERINN Administration Hydralazine HCl 20 mg 10/07/20 11:49 10/17/20 07:20 Hydralazine 20 Mg/1 Ml Inj IV 20 mg Q6H PRN Administration SBP >170 Hydrophilic Ointment 1 applic 01/03/21 13:00 Lip Therapy Vaseline TP DIRECT PRN Dry Lips Dextrose 1,000 mls @ 30 mls/hr 01/03/21 12:00 01/17/21 00:24 D5w IV 75 mls/hr DIRECT ERINN Administration Metoprolol Tartrate 25 mg 01/08/21 22:00 01/16/21 23:00 Metoprolol Tartrate 25 Mg Tab PO Not Given BID ERINN Polyethylene Glycol 17 gm 12/27/20 15:07 12/28/20 10:05 Polyethylene Glycol 3350 17 Gm Powder PO 17 gm QDAY PRN Administration Constipation Simple Syrup 15 ml 10/05/20 11:09 Simple Syrup 15 Ml FEEDTUBE PRN PRN Hypoglycemia Simple Syrup 30 ml 10/05/20 11:09 Simple Syrup 15 Ml FEEDTUBE PRN PRN Hypoglycemia Sodium Bicarbonate 325 mg 10/05/20 11:09 12/16/20 08:19 Sodium Bicarbonate 325 Mg Tab FEEDTUBE 325 mg PRN PRN Administration For Clogged Feeding Tube Nutrition/Malnutrition Assess - Dietary Evaluation Nutrition/Malnutrition Findings: Nutrition Notes Start: 10/04/20 11:13 Freq: Status: Active Protocol: Document 01/11/21 15:00 BREANNA (Rec: 01/11/21 15:07 [facility] [id number]) Nutrition Notes Initial or Follow up Reassessment Current Diagnosis Respiratory Failure Other Pertinent Diagnosis C-Diff, s/p PA, s/p and supracervical hysterectomy Current Diet TF - Jevity 1.2 at 60 mL/hr Labs/Tests Na 143 (01/09) Pertinent Medications D5W at 30ml/hr Height 5 ft 8 in Weight 88.6 kg [place] Body Weight (kg) 63.63 BMI 29.7 Weight Status Overweight Subjective/Other Information Spoke with RN via phone at 14: 48. Pt tolerating TF at goal rate; receives 100ml water flush q4h. Pt awaiting placement. Percent of energy/protein needs met: 87% energy 100% pro Burn Absent Trauma Absent #2 Nutrition Diagnosis Malnutrition Diagnosis Progress(for reassessment Continues documentation) #1 Nutrition Diagnosis Inadequate oral intake Diagnosis Progress(for reassessment Continues documentation) Is patient on ventilator? No Is Patient Ambulatory and/or Out of Bed No REE-([facility]-confined to bed) 1975.404 Calculation Used for Recommendations [facility] Additional Notes Pro needs 0.8-1g/k-89g/ day Fluid needs 1ml/kcal Nutrition Intervention Nutrition Support: Continue Jevity 1.2 at 60ml/hr . Flush 100ml q4h. Kcal 1,728 Protein (gm) 80 Fluid (mL) 1,162 Goal #1 TF tolerance Goal #2 TF to meet at least 75% energy and pro needs Follow-Up By: 01/18/21 Additional Comments F/U: stable TF, wt
[2021-01-17 09:15] LABS: Basophils % (Auto) 0.3 % (0.0-1.8); Eosinophils # (Auto) 0.1 K/mm3 (0.0-0.4); Eosinophils % (Auto) 1.2 % (0.0-4.3); Hematocrit 39.4 % (30.3-42.9); Hemoglobin 12.3 gm/dl (10.1-14.3); Lymphocytes % (Auto) 23.8 % (13.4-35.0); Mean Corpuscular HGB Conc 31 % (30-34); Mean Corpuscular Volume 75 fl (79-97); Monocytes # (Auto) 0.7 K/mm3 (0.0-0.8); Monocytes % (Auto) 8.2 % (0.0-7.3); Platelet Count 293 K/mm3 (140-440); Red Blood Count 5.23 M/mm3 (3.65-5.03); Red Cell Distribution Width 14.1 % (13.2-15.2)
[2021-01-17 09:37] LABS: Blood Urea Nitrogen 9 mg/dL (7-17); Calcium 9.5 mg/dL (8.4-10.2); Hemolysis Index 5
[2021-01-17 09:38] LABS: BUN/Creatinine Ratio 15
[2021-01-17] MEDS: FAMOTIDINE 20 MG TAB PO SCH ×2 (09:46→22:29)
[2021-01-17] MEDS: METOPROLOL TARTRATE 25 MG TAB PO SCH ×2 (09:46→22:29)
[2021-01-17] MEDS: ENOXAPARIN 40 MG/0.4 ML INJ SUB-Q SCH (09:46)
[2021-01-18] MEDS: DEXTROSE 5% IN WATER 1,000 ML IV SCH (04:56)
--- NOTE | 2021-01-18 08:47 | Progress Note ---
Assessment and Plan Assessment and plan: --DIC (disseminated intravascular coagulation) vs HELLP syndrome Resolved --Possible Eclampsia/HELLP Syndrome Resolved --s/p Cardiac arrest x2 on admission and on 10/07 ACLS protocol followed by revival Echo showed preserved Ef --Anoxic brain injury, Developed following cardiac arrest, continue supportive care --Shock-resolved now awaiting placement s/p pressor support --ADOLPH-resolved Stable --Sepsis 2/2 UTI s/p cefepime to cover possible pseudomonas as sputum is also growing GN rods till 01/04/21 Previous urine culture grew pansensitive ecoli Blood cultures from 12/27-no growth --Hypernatremia, resolved, cont free water with TF --DVT prophylaxis Patient presented with DIC No anticoagulants Overall prognosis extremely poor. Daily clinical course 10/02/21 11:30: Pt brought to L&D triage for evaluation of possible labor. Pt accompanied by her spouse. Pt spouse poor historian; unable to obtain history- allergies at this time. Pt taken from registration to triage area via WC. Pt unresponsive, actively seizing with snorous respirations. integrated circuit ic layout designer, Kassy, called and requesting assistance. 11:35: Multiple staff at bedside. Pt 02 sat 67% on nonrebreather, unable to read BP at this time. Yifan Theodore CRNA, at bedside for intubation and assistance with IV insertion. INT attempt by multiple RNs unsuccessful at this time. 11:42: Pt being bagged by KORIN, 02% 79%. No pulse palpated, compressions started at this time; bharati young called and Dr. Newberry preparing OR for emergent c/s. 11:44: Continued compressions on stretcher while transporting pt to OR 1. Pt being bagged with jaw thrust manuever in place by KORIN Stringer student. 11:45: Arrival to OR 1. Dr. Newberry and Dr. Portillo present for emergent c/s. Code team arrived for continued care. patient revived and c/s done Patient has been bleeding from C/s site followed by supracervical hysterectomy for severe bleeding Patient transfused multiple units of PRBC, Patient in DIC. Transferred to the [facility] 10/03. Patient seen and examined at bedside this morning. Patient is nonresponsive and mechanically ventilated. On pressors. Labs reviewed-has leukocytosis, anemia, thrombocytopenia, ADOLPH and lactic acidosis. Started on IV antibiotics to cover possible sepsis secondary to DIC. Hematology oncology recommendations appreciated-needs additional cryoprecipitate and FFP. Monitor D-dimer, fibrinogen and frequent labs. Nephrology consulted for lactic acidosis and ADOLPH. 10/04. Remains mechanically ventilated. Quilcene antibiotics. Labs shows improved acidosis - lactic acid 3.5. Hb drop noted. Getting transfused 2 units PRBCs. Platelet count is ~40k. Continue to monitor labs closely. Critical care team on board. 10/05; xray reviewed, concerning for multifocal infilrate, likely underlying Pne umonia, will add ID consult to assist with management of this critically ill patient, start tube feed, closely monitor renal system 10/06: Resumed care, remains on mechanical ventilation. No active bleeding, H&H stable. Continue to monitor CBC and BMP. Continue IV antibiotic for underlying pneumonia. Follow critical care and ID recommendation. 10/07: Remains on mechanical ventilation. No active bleeding, H&H stable. Critical care following, wean off ventilation as tolerated. 10/08: Patient had another cardiac arrest last night. Remains on mechanical ventilation, update family. Continue supportive care -poor prognosis 10/09: Called patient mother and discussed about patient care and management. Answered all question to best of my knowledge and family satisfaction. Patient remains on mechanical ventilation, cardiac arrest x2 so far. Critically sick, poor prognosis 10/10: remains on mechanical ventilation. h/h stable, no active bleeding. monitor CBC/BMP 10/11: WBC trended up with diarrhea, started on vancomycin po. remains on MV, off pressor, tolerating TF 10/12: remains on MV, off pressor, tolerating TF. called family for update but unable to reach, could not leave message as it was full. cont supportive care, wean off vent as tolerated. 10/13/2020; patient is on mechanical ventilation, tolerating tube feeding. Patient has labored breathing. Neuro was consulted and recommend MRI. Patient is on Precedex. Rectal tube in place. 10/14/2020; patient is on mechanical ventilation, Precedex. Patient had fever and blood culture ordered. Patient is on IV vancomycin per ID recommendation. Neuro consulted and recommend MRI. Continue to monitor. Prognosis is guarded. 10/15/2020; patient is on mechanical ventilation, Precedex. Patient had fever and blood culture ordered. Patient is on IV vancomycin per ID recommendation. Neuro consulted and recommend MRI. Continue to monitor. Prognosis is guarded. 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 12/06/20; anoxic brain injury. Awaiting placement. 12/07/2020; anoxic brain injury, awaiting placement. 12/09/2020; anoxic brain injury, awaiting placement. 12/10/2020; patient had episodes of fever overnight. CBC, BMP, blood culture, UA and chest x-ray ordered, will follow and manage accordingly. Urinalysis is suggestive of UTI and I put the patient on ceftriaxone, order urine culture. Chest x-ray is normal. 12/11/2020; patient is on ceftriaxone day 2 for UTI. We will continue to follow urine culture. 12/12/2020. Day #3 of Rocephin for UTI. We will continue for 2 more days while she is here. Present UTI. 12/13/2020. Day #4 of Rocephin for UTI. Patient remains on 50% with tracheost jayne. Remains unresponsive with evidence of anoxic encephalopathy unable to make needs known. 12/14/2020. Day #5 of Rocephin for UTI completed today. Remains encephalopathic unable to make needs known. Remains on 50% unable to decrease oxygen via tracheostomy. Overall prognosis remains extremely poor. 3: Continue to monitor. Stop and monitor antibiotics at this time. Continue to wean oxygen as tolerated. Wean oxygen as tolerated. Case management working on placement. 12/16: Continue supportive care aspiration precautions. Awaiting placement discussion. Monitor fever curve. Prognosis remains poor no evidence of neurological recovery as of today 3: Continue supportive care, check labs and chest xray. Still monitor off antibiotics. Monitor Sodium level 12/18: Patient remains with intermittent low grade fever, reviewed EEG from September again, consistent for Ischemic Hypoxic Encephalopathy, patient with decorticating posturing type presentation. Will discuss with garbage truck driver to opt imize diet so we can discontinue D5. CXR with no abnormality. Discussed extensively with the nursing staff at bedside CXR IMPRESSION: 1. No acute findings. 12/19: No clinical change 12/20: No clinical change, now off abx, monitor, discussed her medications with our pharmacist I believe that her posture and rigidity is likely from underlying anoxic encephalopathy. Continue to monitor and await placement decision. Continue aggressive suctioning. Plan discussed in detail with the nursing staff 12/21: Continue supportive care. Will give 500 cc bolus of fluid today to replace insensible losses. Tachycardia appears to be improving. Blood pressure precludes adjusting cardiac meds. Still awaiting placement from case management. Plan discussed in detail with the nursing staff 12/22. Continue support supportive care. Tracheostomy and PEG in place. Remains nonresponsive. Awaiting placement. 12/23. Continue support supportive care. Tracheostomy and PEG in place. Remains nonresponsive. Awaiting placement. Remains tachycardic. Decrease dose of lasix. Will try low dose metoprolol. Monitor BP closely 12/24. Continue support supportive care. Tracheostomy and PEG in place. Remains nonresponsive. Awaiting placement. Heart rate slightly better. Continue to monitor BP closely 12/25. Continue support supportive care. Tracheostomy and PEG in place. Remains nonresponsive. Awaiting placement. 12/26. Continue support supportive care. Tracheostomy and PEG in place. Remains nonresponsive. Awaiting placement 12/27. Continue support supportive care. Tracheostomy and PEG in place. Remains nonresponsive. Awaiting placement 12/28. Had fever yesterday. Blood culture drawn. UA - UTI - started on antibiotics. Now tracheal aspirate is growing GN rods. 12/29: Continue IV antibiotics, continue supportive care. Since admission patient has shown minimal or no chance of neurological recovery. Need 24/7 assistance. Currently on trach and PEG, nonverbal. Waiting on SNF placement. Discussed with assistant case manager today. 12/30: Continue IV antibiotics for UTI, continue supportive care. Pending placement 12/31: continue supportive care. continue supportive care. Pending placement 01/01: continue supportive care. Pending placement. cont Iv abx for UTI till 01/04 01/02: Continue supportive care, pending placement. Sodium level slightly elevated, will start hypotonic fluid. Continue antibiotics till 01/04 01/03; cont hypotonic fluid, increase free water with TF for hypernatremia, follow BMP. cont supportive care. pending placement. cont cefepime. recx blood 01/04: resolved hyponatremia, cont supportive care, pending placement. Last day of supplement today. 01/05: Continue supportive care, pending placement. Monitor H&H and fever curve off antibiotic. 01/06; monitor off abx, suction as needed, Continue supportive care, pending placement. 01/07: Discharge pending on placement, vitals stable. Continue supportive care 01/08: Discharge pending on placement, vitals stable. Continue supportive care. stop lasix, increase metoprolol to 25mg BID for ST. 01/09 patient resting with eyes closed. Opens eyes to tactile stimulus, has a blink reflex, does not follow simple commands, has a T-collar / G-tube Lab results reviewed, low-grade fever, 01/10 Eyes open, does not follow simple commands, no acute events overnight 01/11 no acute events overnight Waiting for placement 01/12 No acute events overnight. Patient awaiting for placement 01/13. No new issues. Awaiting placement 01/14. No new issues. Awaiting placement. 01/15. No new issues. Awaiting placement. 01/16. No new issues. Patient remain stable. Awaiting placement. Check maintenance labs. 01/17. Routine maintenance labs were ordered and are still pending. Await placement. 01/18. Patient with low-grade fever past 24-48 hrs. WBC within normal limits. Check chest x-ray, urinalysis and consider blood cultures. Continue tracheostomy care, secretion control and airway management. Patient currently with PEG and tube feedings at 60 cc an hour. Nutritional support and aspiration precautions. History Interval history: 30 year old -Citizen Of [place] female CHE 10/25/20 at 36w5d who presents with seizures in triage on 10/02/20. Pt was not able to provide history but per pt's , she presented to the hospital to return a 24 hour urine specimen for analysis. She then suddenly reported that she did not feel good. She was taken to labor and delivery and shortly after arrival, she began seizing. During this time, a code met was called because the patient became hypoxic. She was then noted to be without a pulse. Chest compressions were started immediately, and the patient was emergently taken to the operating room for delivery of the fetus. Off note, This patient has had care at [facility] with comanagement by [facility] since 11 wks complicated by ADHD, morbid obesity, generalized anxiety disorder, panic attacks, chronic narcotic use, fibromyalgia, GERD, Irritable Bowel Syndrome, Migraines, h/o endometrial ablation and ovarian vein embolization, genital herpes, insomnia, LGA fetus, nausea and vomiting, guerline yhydramnios, quad screen positive for Down's Syndrome, and previous x 3. She was GBS negative. Patient with low-grade fever the past 2 days. Hospitalist Physical - Constitutional Vitals: Temp Pulse Resp BP Pulse Ox 99.5 F 98 H 20 103/59 97 01/18/21 05:36 01/18/21 05:36 01/18/21 05:36 01/18/21 05:36 01/18/21 05:36 General appearance: Present: other (Persistent vegetative state) - EENT Eyes: Present: PERRL, EOM intact ENT: hearing intact, clear oral mucosa, dentition normal - Neck Neck: Present: supple, normal ROM - Respiratory Respiratory effort: normal Respiratory: bilateral: CTA - Cardiovascular Rhythm: regular Heart Sounds: Present: S1 & S2. Absent: gallop, rub - Extremities Extremities: no ischemia, No edema, Full ROM - Abdominal General gastrointestinal: soft, non-tender, non-distended, normal bowel sounds - Integumentary Integumentary: Present: clear, warm, dry - Neurologic Neurologic: CNII-XII intact, moves all extremities HEART Score - HEART Score Age: < 45 Risk factors: 1-2 risk factors - Critical Actions Critical Actions: >7 pts:50-65% risk of adverse cardiac event. Early invasive measures Results - Labs CBC & Chem 7: 01/17/21 07:40 01/17/21 07:40 Labs: Laboratory Last Values WBC 8.6 K/mm3 (4.5-11.0) 01/17/21 07:40 RBC 5.23 M/mm3 (3.65-5.03) H 01/17/21 07:40 Hgb 12.3 gm/dl (10.1-14.3) 01/17/21 07:40 Hgb Comment See scanned result 10/04/20 Unknown Hct 39.4 % (30.3-42.9) 01/17/21 07:40 MCV 75 fl (79-97) L 01/17/21 07:40 MCH 24 pg (28-32) L 01/17/21 07:40 MCHC 31 % (30-34) 01/17/21 07:40 RDW 14.1 % (13.2-15.2) 01/17/21 07:40 Plt Count 293 K/mm3 (140-440) 01/17/21 07:40 Lymph % (Auto) 23.8 % (13.4-35.0) 01/17/21 07:40 Lipscomb % (Auto) 8.2 % (0.0-7.3) H 01/17/21 07:40 Eos % (Auto) 1.2 % (0.0-4.3) 01/17/21 07:40 Baso % (Auto) 0.3 % (0.0-1.8) 01/17/21 07:40 Lymph # (Auto) 2.0 K/mm3 (1.2-5.4) 01/17/21 07:40 Lipscomb # (Auto) 0.7 K/mm3 (0.0-0.8) 01/17/21 07:40 Eos # (Auto) 0.1 K/mm3 (0.0-0.4) 01/17/21 07:40 Baso # (Auto) 0.0 K/mm3 (0.0-0.1) 01/17/21 07:40 Add Manual Diff Complete 12/10/20 09:37 Total Counted 100 12/10/20 09:37 Seg Neutrophils % 66.5 % (40.0-70.0) 01/17/21 07:40 Seg Neuts % (Manual) 81.0 % (40.0-70.0) H 12/10/20 09:37 Band Neutrophils % 2.0 % 10/15/20 05:50 Lymphocytes % (Manual) 17.0 % (13.4-35.0) 12/10/20 09:37 Reactive Lymphs % (Man) 1.0 % 10/02/20 12:18 Monocytes % (Manual) 2.0 % (0.0-7.3) 12/10/20 09:37 Eosinophils % (Manual) 1.0 % (0.0-4.3) 10/29/20 07:56 Myelocytes % 2.0 % 10/02/20 13:05 Metamyelocytes % 1.0 % 10/14/20 04:00 Nucleated RBC % Not Reportable 12/10/20 09:37 Seg Neutrophils # 5.7 K/mm3 (1.8-7.7) 01/17/21 07:40 Seg Neutrophils # Man 10.1 K/mm3 (1.8-7.7) H 12/10/20 09:37 Band Neutrophils # 0.0 K/mm3 12/10/20 09:37 Lymphocytes # (Manual) 2.1 K/mm3 (1.2-5.4) 12/10/20 09:37 Abs React Lymphs (Man) 0.0 K/mm3 12/10/20 09:37 Monocytes # (Manual) 0.3 K/mm3 (0.0-0.8) 12/10/20 09:37 Eosinophils # (Manual) 0.0 K/mm3 (0.0-0.4) 12/10/20 09:37 Basophils # (Manual) 0.0 K/mm3 (0.0-0.1) 12/10/20 09:37 Metamyelocytes # 0.0 K/mm3 12/10/20 09:37 Myelocytes # 0.0 K/mm3 12/10/20 09:37 Promyelocytes # 0.0 K/mm3 12/10/20 09:37 Blast Cells # 0.0 K/mm3 12/10/20 09:37 WBC Morphology Not Reportable 12/10/20 09:37 Hypersegmented Neuts Not Reportable 12/10/20 09:37 Hyposegmented Neuts Not Reportable 12/10/20 09:37 Hypogranular Neuts Not Reportable 12/10/20 09:37 Smudge Cells Not Reportable 12/10/20 09:37 Toxic Granulation Not Reportable 12/10/20 09:37 Toxic Vacuolation Not Reportable 12/10/20 09:37 Dohle Bodies Not Reportable 12/10/20 09:37 Pelger-Huet Anomaly Not Reportable 12/10/20 09:37 Ester Rods Not Reportable 12/10/20 09:37 Platelet Estimate Consistent w auto 12/10/20 09:37 Clumped Platelets Not Reportable 12/10/20 09:37 Plt Clumps, EDTA Not Reportable 12/10/20 09:37 Large Platelets Not Reportable 12/10/20 09:37 Giant Platelets Not Reportable 12/10/20 09:37 Platelet Satelliting Not Reportable 12/10/20 09:37 Plt Morphology Comment Not Reportable 12/10/20 09:37 RBC Morphology Normal 12/10/20 09:37 Dimorphic RBCs Not Reportable 12/10/20 09:37 Polychromasia Not Reportable 12/10/20 09:37 Hypochromasia 1+ 12/10/20 09:37 Poikilocytosis Not Reportable 12/10/20 09:37 Anisocytosis Not Reportable 12/10/20 09:37 Microcytosis Not Reportable 12/10/20 09:37 Macrocytosis Not Reportable 12/10/20 09:37 Spherocytes Not Reportable 12/10/20 09:37 Pappenheimer Bodies Not Reportable 12/10/20 09:37 Sickle Cells Not Reportable 12/10/20 09:37 Target Cells Not Reportable 12/10/20 09:37 Tear Drop Cells Not Reportable 12/10/20 09:37 Ovalocytes Not Reportable 12/10/20 09:37 Stomatocytes Few 10/14/20 04:00 Helmet Cells Not Reportable 12/10/20 09:37 Burk-Ossian Bodies Not Reportable 12/10/20 09:37 Falcon Rings Not Reportable 12/10/20 09:37 [place] Cells Not Reportable 12/10/20 09:37 Bite Cells Not Reportable 12/10/20 09:37 Crenated Cell Not Reportable 12/10/20 09:37 Elliptocytes Not Reportable 12/10/20 09:37 Acanthocytes (Spur) Not Reportable 12/10/20 09:37 Rouleaux Not Reportable 12/10/20 09:37 Hemoglobin C Crystals Not Reportable 12/10/20 09:37 Schistocytes Not Reportable 12/10/20 09:37 Malaria parasites Not Reportable 12/10/20 09:37 Sickle Cell Solubility See scanned result 10/04/20 Unknown Hemoglobin A See scanned result 10/04/20 Unknown Hemoglobin A2 See scanned result 10/04/20 Unknown Hemoglobin A2 Prime See scanned result 10/04/20 Unknown Hemoglobin C See scanned result 10/04/20 Unknown Hemoglobin D See scanned result 10/04/20 Unknown Hemoglobin E See scanned result 10/04/20 Unknown Hgb F Diffential Stain See scanned result 10/04/20 Unknown Hemoglobin F Quant See scanned result 10/04/20 Unknown Hemoglobin G See scanned result 10/04/20 Unknown Hemoglobin S See scanned result 10/04/20 Unknown Hemoglobin O-[place] See scanned result 10/04/20 Unknown Hemoglobin Barts See scanned result 10/04/20 Unknown Hemoglobin Analilia See scanned result 10/04/20 Unknown Variant Hemoglobin See scanned result 10/04/20 Unknown Abnorm Hgb IEF Confirm See scanned result 10/04/20 Unknown Hemoglobin Interpret See scanned result 10/04/20 Unknown Hemoglobinopathy Note See scanned result 10/04/20 Unknown Sharad Bodies Not Reportable 12/10/20 09:37 Hem Pathologist Commnt No 12/10/20 09:37 PT 13.6 Sec. (12.2-14.9) 10/21/20 13:54 INR 1.06 (0.87-1.13) 10/21/20 13:54 APTT 31.6 Sec. (24.2-36.6) 10/03/20 00:40 Fibrinogen 336 mg/dl (211-480) 10/04/20 10:00 D-Dimer 1974.47 ng/mlDDU (0-234) H 11/11/20 13:50 ABG pH 7.459 pH Units (7.350-7.450) H 10/26/20 10:30 POC ABG pCO2 20.7 mmHg (32.0-48.0) L 10/13/20 07:18 ABG pCO2 32.4 mm Hg 10/26/20 10:30 POC ABG pO2 137.9 mmHg (83-108) H 10/13/20 07:18 ABG pO2 112.2 mm Hg (80.0-90.0) H 10/26/20 10:30 POC ABG HCO3 14.8 10/13/20 07:18 ABG HCO3 22.5 mmol/L (20.0-26.0) 10/26/20 10:30 ABG O2 Saturation 98.2 % (95.0-99.0) 10/26/20 10:30 ABG O2 Content 18.5 (0.0-44) 10/26/20 10:30 POC ABG Base Excess -6.9 10/13/20 07:18 ABG Base Excess -0.6 mmol/L (-2.0-3.0) 10/26/20 10:30 ABG Hemoglobin 13.5 gm/dl (12.0-16.0) 10/26/20 10:30 ABG Oxyhemoglobin 98.3 (94-98) H 10/13/20 07:18 ABG Carboxyhemoglobin 1.3 % (0.0-5.0) 10/26/20 10:30 ABG Methemoglobin 0.5 % (0.0-1.5) 10/26/20 10:30 ABG Sodium 135.9 mmol/L (136.0-145.0) L 10/13/20 07:18 ABG Potassium 3.7 mmol/L (3.40-4.50) 10/13/20 07:18 ABG Chloride 111.0 mmol/L (98-107) H 10/13/20 07:18 ABG Glucose 109 mg/dL (65-95) H 10/13/20 07:18 VBG pH 6.949 (7.320-7.420) L* 10/02/20 Unknown Oxyhemoglobin 96.5 % (95.0-99.0) 10/26/20 10:30 Carboxyhemoglobin 0.3 (0.5-1.5) L 10/13/20 07:18 FiO2 25 % 10/26/20 10:30 Sodium 135 mmol/L (137-145) L 01/17/21 07:40 Potassium 4.6 mmol/L (3.6-5.0) 01/17/21 07:40 Chloride 99.0 mmol/L (98-107) 01/17/21 07:40 Carbon Dioxide 23 mmol/L (22-30) 01/17/21 07:40 Anion Gap 18 mmol/L 01/17/21 07:40 BUN 9 mg/dL (7-17) 01/17/21 07:40 Creatinine 0.6 mg/dL (0.6-1.2) 01/17/21 07:40 Estimated GFR > 60 ml/min 01/17/21 07:40 BUN/Creatinine Ratio 15 % 01/17/21 07:40 Glucose 85 mg/dL (65-100) 01/17/21 07:40 POC Glucose 96 mg/dL (70-105) 01/18/21 05:37 Random Insulin 43.2 uIU/mL (<=19.6) H 11/02/20 19:19 Proinsulin See scanned result 11/02/20 19:19 C-Peptide 6.23 ng/mL (0.80-3.85) H 11/02/20 19:19 Lactic Acid 1.90 mmol/L (0.7-2.0) 10/04/20 22:00 Uric Acid 7.5 mg/dL (3.5-7.6) 10/02/20 13:05 Calcium 9.5 mg/dL (8.4-10.2) 01/17/21 07:40 Ionized Calcium 4.4 mg/dL (4.8-5.6) L 10/07/20 21:00 Phosphorus 4.60 mg/dL (2.5-4.5) H 11/13/20 10:05 Magnesium 2.10 mg/dL (1.7-2.3) 11/13/20 10:05 Total Bilirubin 0.40 mg/dL (0.1-1.2) 12/22/20 11:03 AST 45 units/L (5-40) H 12/22/20 11:03 ALT 33 units/L (7-56) 12/22/20 11:03 Alkaline Phosphatase 100 units/L (35-129) 12/22/20 11:03 Lactate Dehydrogenase 769 units/L (91-180) H 10/02/20 13:05 C-Reactive Protein 0.70 mg/dL (0.00-1.30) 11/11/20 13:50 NT-Pro-B Natriuret Pep 2788 pg/mL (0-450) H 10/04/20 10:00 Total Protein 7.5 g/dL (6.3-8.2) 12/22/20 11:03 Albumin 3.8 g/dL (3.9-5) L 12/22/20 11:03 Albumin/Globulin Ratio 1.0 % 12/22/20 11:03 Procalcitonin < 0.05 ng/mL (<0.15) 12/27/20 20:16 Arterial Blood Glucose 109 mg/dL (65-95) H 10/13/20 07:18 Arterial Blood Ionized Calcium 4.6 mg/dL (4.6-5.3) 10/13/20 07:18 Urine Color Kelsey (Yellow) 12/27/20 22:25 Urine Turbidity Cloudy (Clear) 12/27/20 22:25 Urine pH 7.0 (5.0-7.0) 12/27/20 22:25 Ur Specific [place] 1.018 (1.003-1.030) 12/27/20 22:25 Urine Protein 30 mg/dl mg/dL (Negative) 12/27/20 22:25 Urine Glucose (UA) Neg mg/dL (Negative) 12/27/20 22:25 Urine Ketones Neg mg/dL (Negative) 12/27/20 22:25 Urine Blood Sm (Negative) 12/27/20 22:25 Urine Nitrite Pos (Negative) 12/27/20 22:25 Urine Bilirubin Neg (Negative) 12/27/20 22:25 Urine Urobilinogen 2.0 mg/dL (<2.0) 12/27/20 22:25 Ur Leukocyte Esterase Lg (Negative) 12/27/20 22:25 Urine WBC (Auto) 5.0 /HPF (0.0-6.0) 12/27/20 22:25 Urine RBC (Auto) 22.0 /HPF (0.0-6.0) 12/27/20 22:25 U Epithel Cells (Auto) 16.0 /HPF (0-13.0) H 12/27/20 22:25 Urine Bacteria (Auto) 4+ /HPF (Negative) 12/27/20 22:25 Urine WBC Clumps 3+ /HPF 11/11/20 13:50 Calcium Oxalate Crystal Few 11/11/20 13:50 Urine Mucus 3+ /HPF 12/27/20 22:25 Urine Yeast (Budding) 2+ /HPF 12/10/20 09:25 Vancomycin Trough 12.6 ug/mL (5.0-20.0) 10/21/20 13:54 Random Vancomycin 10.7 ug/mL (0-40.0) 10/16/20 13:09 Phenytoin 5.7 ug/mL (10.0-20.0) L 10/13/20 07:00 C. difficile Tox (PCR) Positive (Negative) 10/16/20 10:22 Coronavirus (PCR) Negative (Negative) 10/08/20 14:15 Blood Type O POSITIVE 10/02/20 12:50 Antibody Screen Negative 10/02/20 12:50 Crossmatch See Detail 10/02/20 12:50 - Diagnostic Impressions Diagnostic Impressions: Echocardiogram 10/03/20 13:42 Transthoracic Echocardiogram Indication: S/P Cardiac Arrest R/O Cardiomyopathy BP: 133/71 Conclusions *Global left ventricular systolic function is normal. *The estimated ejection fraction is 60-65%. *There is trace of mitral regurgitation. *The right 0heart chambers are both slightly dilated. *There is mild tricuspid regurgitation. *There is mild-moderate pulmonary hypertension. *The right ventricular systolic pressure is calculated at 44 mmHg. *The study quality is technically difficult. Findings Procedure Info: The study quality is technically difficult. The study is technically limited due to patient body habitus. The study was technically limited due to the patient's inability to lay in the left lateral decubitus position. Left Ventricle: The left ventricular chamber size is normal. There is no left ventricular hypertrophy. Global left ventricular systolic function is normal. The estimated ejection fraction is 60-65%. Left Atrium: The left atrial chamber size is normal. Right Ventricle: The right ventricle is slightly dilated. Right Atrium: The right atrium is mildly dilated. Aortic Valve: The aortic valve leaflets are mildly thickened. There is no evidence of aortic regurgitation. There is no evidence of aortic stenosis. Mitral Valve: The mitral valve leaflets are mildly thickened. There is trace of mitral regurgitation. There is no evidence of mitral stenosis. Tricuspid Valve: There is mild tricuspid regurgitation. The right ventricular systolic pressure is calculated at 44 mmHg. There is evidence of mild pulmonary hypertension. Pulmonic Valve: There is trace pulmonic regurgitation. Pericardium: There is no pericardial effusion. Aorta: There is no dilatation of the ascending aorta. There is no dilatation of the aortic root. Venous: The inferior vena cava is dilated. Measurements Chambers 2D Name Value Normal Range IVSd (2D) 1 cm (0.6 - 1.1) LVPWd (2D) 1.01 cm (0.6 - 1.1) LVIDd (2D) 4.58 cm (3.7 - 5.6) LVIDs (2D) 3.17 cm (2 - 3.8) LV FS (2D) 30.93 % - EF Teichholz (2D) 58.66 % - Ao root diameter (2D) 2.94 cm (2 - 3.7) Volumes/Mass Name Value Normal Range LA ESV SP 4CH (A/L) 72.82 ml - LA ESV SP 2CH (A/L) 66.86 ml - LA ESV BP (A/L) 74.49 ml - LA ESV SP 4CH (MOD) 71.03 ml - LA ESV SP 2CH (MOD) 64.3 ml - LV EDV SP 4CH (MOD) 98.82 ml - LV ESV SP 4CH (MOD) 24.8 ml - EF SP 4CH (MOD) 74.9 % - LV EDV SP 2CH (MOD) 86.1 ml - LV ESV SP 2CH (MOD) 36.93 ml - EF SP 2CH (MOD) 57.11 % - LV EDV BP 94.4 ml - LV ESV BP 32.66 ml - BP EF (MOD) 65.4 % - Diastolic/Systolic Function Name Value Normal Range MV E-wave Vmax 1.04 m/sec - MV deceleration time 160.46 msec - MV A-wave Vmax 0.92 m/sec - MV E:A ratio 1.14 ratio - Aortic Valve Name Value Normal Range AV Vmax 2.12 m/sec - AV VTI 22.37 cm - AV peak gradient 17.95 mmHg - AV mean gradient 7.29 mmHg - LVOT diameter 2.01 cm - LVOT Vmax 1.8 m/sec - LVOT VTI 27.17 cm - LVOT peak gradient 12.91 mmHg - LVOT mean gradient 6.83 mmHg - SV LVOT 86.42 ml - ANITA (continuity Vmax) 2.7 cm2 - ANITA (continuity VTI) 3.86 cm2 - Ascending Ao 3.18 cm - Tricuspid Valve Name Value Normal Range TV E-wave Vmax 0.88 m/sec - TR Vmax 3.01 m/sec - TR peak gradient 36.27 mmHg - RAP 8 mmHg - RVSP 44 mmHg - IVC diameter 2.65 cm (1.2 - 2.3) Pulmonic Valve/Qp:Qs Name Value Normal Range PV Vmax 1.22 m/sec - PV peak gradient 5.91 mmHg - RVOT Vmax 0.87 m/sec - RVOT VTI 13.32 cm - RVOT peak gradient 3 mmHg - PV acceleration time 110.37 msec - [place]/IV: Voiding Method External Female Catheter IV Catheter Type [Right Foot] INT / Saline Lock IV Catheter Type [Left Forearm Peripheral IV ] IV Catheter Type [Left Wrist] INT / Saline Lock IV Catheter Type [Right Hand] INT / Saline Lock IV Catheter Type [Right INT / Saline Lock Antecubital] IV Catheter Type [Right Upper Mid-line arm] IV Catheter Type [Left Triple Lumen Cath Internal Jugular] IV Catheter Type [Left Hand] Peripheral IV IV Catheter Type [Left Peripheral IV Antecubital] Active Medications - Current Medications Current Medications: Generic Name Dose Route Start Last Admin Trade Name Freq PRN Reason Stop Dose Admin Acetaminophen 650 mg 10/05/20 16:34 01/10/21 22:48 Acetaminophen 325 Mg/10.15 Ml Oral Liqd Unit Dose FEEDTUBE 650 mg Q6H PRN Administration Non Cardiac Pain or Temp>100.5 Albuterol 2.5 mg 11/05/20 13:03 11/06/20 13:04 Albuterol 2.5 Mg/3 Ml Nebu IH 2.5 mg Q4HRT PRN Administration Shortness Of Breath Lipase/Protease/Amylase 1 each 10/05/20 11:09 Lipase 10,500/Protease 25,000/Amylase 43,750 (Units) Dr Barakat FEEDTUBE PRN PRN For Clogged Feeding Tube Enoxaparin Sodium 40 mg 10/22/20 10:00 01/17/21 09:46 Enoxaparin 40 Mg/0.4 Ml Inj SUB-Q 40 mg DAILY ERINN Administration Protocol Famotidine 20 mg 10/07/20 10:00 01/17/21 22:29 Famotidine 20 Mg Tab PO 20 mg BID ERINN Administration Hydralazine HCl 20 mg 10/07/20 11:49 10/17/20 07:20 Hydralazine 20 Mg/1 Ml Inj IV 20 mg Q6H PRN Administration SBP >170 Hydrophilic Ointment 1 applic 01/03/21 13:00 Lip Therapy Vaseline TP DIRECT PRN Dry Lips Dextrose 1,000 mls @ 30 mls/hr 01/03/21 12:00 01/18/21 04:56 D5w IV 75 mls/hr DIRECT ERINN Administration Metoprolol Tartrate 25 mg 01/08/21 22:00 01/17/21 22:29 Metoprolol Tartrate 25 Mg Tab PO 25 mg BID ERINN Administration Polyethylene Glycol 17 gm 12/27/20 15:07 12/28/20 10:05 Polyethylene Glycol 3350 17 Gm Powder PO 17 gm QDAY PRN Administration Constipation Simple Syrup 15 ml 10/05/20 11:09 Simple Syrup 15 Ml FEEDTUBE PRN PRN Hypoglycemia Simple Syrup 30 ml 10/05/20 11:09 Simple Syrup 15 Ml FEEDTUBE PRN PRN Hypoglycemia Sodium Bicarbonate 325 mg 10/05/20 11:09 12/16/20 08:19 Sodium Bicarbonate 325 Mg Tab FEEDTUBE 325 mg PRN PRN Administration For Clogged Feeding Tube Nutrition/Malnutrition Assess - Dietary Evaluation Nutrition/Malnutrition Findings: Nutrition Notes Start: 10/04/20 11:13 Freq: Status: Active Protocol: Document 01/11/21 15:00 BREANNA (Rec: 01/11/21 15:07 BREANNA [id number]) Nutrition Notes Initial or Follow up Reassessment Current Diagnosis Respiratory Failure Other Pertinent Diagnosis C-Diff, s/p MN, s/p and supracervical hysterectomy Current Diet TF - Jevity 1.2 at 60 mL/hr Labs/Tests Na 143 (01/09) Pertinent Medications D5W at 30ml/hr Height 5 ft 8 in Weight 88.6 kg [place] Body Weight (kg) 63.63 BMI 29.7 Weight Status Overweight Subjective/Other Information Spoke with RN via phone at 14: 48. Pt tolerating TF at goal rate; receives 100ml water flush q4h. Pt awaiting placement. Percent of energy/protein needs met: 87% energy 100% pro Burn Absent Trauma Absent #2 Nutrition Diagnosis Malnutrition Diagnosis Progress(for reassessment Continues documentation) #1 Nutrition Diagnosis Inadequate oral intake Diagnosis Progress(for reassessment Continues documentation) Is patient on ventilator? No Is Patient Ambulatory and/or Out of Bed No REE-([place]-St. Jeor-confined to bed) 1975.404 Calculation Used for Recommendations [place]-St Jeor Additional Notes Pro needs 0.8-1g/k-89g/ day Fluid needs 1ml/kcal Nutrition Intervention Nutrition Support: Continue Jevity 1.2 at 60ml/hr . Flush 100ml q4h. Kcal 1,728 Protein (gm) 80 Fluid (mL) 1,162 Goal #1 TF tolerance Goal #2 TF to meet at least 75% energy and pro needs Follow-Up By: 01/18/21 Additional Comments F/U: stable TF, wt
--- NOTE | 2021-01-18 09:25 | XRay Report ---
CHEST 1 VIEW 0915 INDICATION / CLINICAL INFORMATION: fever COMPARISON: 12/27/2020 FINDINGS: SUPPORT DEVICES: Stable HEART / MEDIASTINUM: Stable LUNGS / PLEURA: No significant pulmonary or pleural abnormality. No pneumothorax. ADDITIONAL FINDINGS: No significant additional findings. Signer Name: Macario Morelos MD Signed: 01/18/2021 9:20 AM Workstation Name: [id number]
[2021-01-18] MEDS: METOPROLOL TARTRATE 25 MG TAB PO SCH ×2 (11:20→22:29)
[2021-01-18] MEDS: FAMOTIDINE 20 MG TAB PO SCH ×2 (11:20→22:29)
[2021-01-18] MEDS: ENOXAPARIN 40 MG/0.4 ML INJ SUB-Q SCH (11:20)
[2021-01-18] MEDS ORDERED: LIPASE 10,500/PROTEASE 25,000/AMYLASE 43,750 (UNITS) DR CAP FEEDTUBE PRN (12:24)
[2021-01-18] MEDS ORDERED: SODIUM BICARBONATE 325 MG TAB FEEDTUBE PRN (12:24)
[2021-01-18] MEDS ORDERED: SIMPLE SYRUP 15 ML FEEDTUBE PRN ×2 (12:24)
[2021-01-18 12:27] LABS: Bacteria,Urine 1+ /HPF (Negative); Bilirubin,Urine NEG (Negative); Blood,Urine NEG (Negative); Color,Urine Yellow (Yellow); Protein,Urine <15 mg/dL mg/dL (Negative); Urobilinogen,Urine < 2.0 mg/dL (<2.0)
[2021-01-19] MEDS: ENOXAPARIN 40 MG/0.4 ML INJ SUB-Q SCH (10:55)
[2021-01-19] MEDS: METOPROLOL TARTRATE 25 MG TAB PO SCH ×2 (10:56→21:44)
[2021-01-19] MEDS: FAMOTIDINE 20 MG TAB PO SCH ×2 (10:57→21:44)
[2021-01-19] MEDS: DEXTROSE 5% IN WATER 1,000 ML IV SCH (13:45)
[2021-01-19] MEDS: ACETAMINOPHEN 325 MG/10.15 ML ORAL LIQD UNIT DOSE FEEDTUBE PRN (18:42)
[2021-01-20] MEDS: FAMOTIDINE 20 MG TAB PO SCH ×2 (09:52→23:35)
[2021-01-20] MEDS: METOPROLOL TARTRATE 25 MG TAB PO SCH ×2 (09:53→23:35)
[2021-01-20] MEDS: ENOXAPARIN 40 MG/0.4 ML INJ SUB-Q SCH (09:53)
--- NOTE | 2021-01-20 09:53 | Progress Note ---
Assessment and Plan Assessment and plan: --DIC (disseminated intravascular coagulation) vs HELLP syndrome Resolved --Possible Eclampsia/HELLP Syndrome Resolved --s/p Cardiac arrest x2 on admission and on 10/07 ACLS protocol followed by revival Echo showed preserved Ef --Anoxic brain injury, Developed following cardiac arrest, continue supportive care --Shock-resolved now awaiting placement s/p pressor support --ADOLPH-resolved Stable --Sepsis 2/2 UTI s/p cefepime to cover possible pseudomonas as sputum is also growing GN rods till 01/04/21 Previous urine culture grew pansensitive ecoli Blood cultures from 12/27-no growth --Hypernatremia, resolved, cont free water with TF --DVT prophylaxis Patient presented with DIC No anticoagulants Overall prognosis extremely poor. Daily clinical course 10/02/21 11:30: Pt brought to L&D triage for evaluation of possible labor. Pt accompanied by her spouse. Pt spouse poor historian; unable to obtain history- allergies at this time. Pt taken from registration to triage area via WC. Pt unresponsive, actively seizing with snorous respirations. agricultural agent, Kassy, called and requesting assistance. 11:35: Multiple staff at bedside. Pt 02 sat 67% on nonrebreather, unable to read BP at this time. Yifan Theodore CRNA, at bedside for intubation and assistance with IV insertion. INT attempt by multiple RNs unsuccessful at this time. 11:42: Pt being bagged by KORIN, 02% 79%. No pulse palpated, compressions started at this time; bharati young called and Dr. Newberry preparing OR for emergent c/s. 11:44: Continued compressions on stretcher while transporting pt to OR 1. Pt being bagged with jaw thrust manuever in place by KORIN Stringer student. 11:45: Arrival to OR 1. Dr. Newberry and Dr. Portillo present for emergent c/s. Code team arrived for continued care. patient revived and c/s done Patient has been bleeding from C/s site followed by supracervical hysterectomy for severe bleeding Patient transfused multiple units of PRBC, Patient in DIC. Transferred to the ICU 10/03. Patient seen and examined at bedside this morning. Patient is nonresponsive and mechanically ventilated. On pressors. Labs reviewed-has leukocytosis, anemia, thrombocytopenia, ADOLPH and lactic acidosis. Started on IV antibiotics to cover possible sepsis secondary to DIC. Hematology oncology recommendations appreciated-needs additional cryoprecipitate and FFP. Monitor D-dimer, fibrinogen and frequent labs. Nephrology consulted for lactic acidosis and ADOLPH. 10/04. Remains mechanically ventilated. Kevin antibiotics. Labs shows improved acidosis - lactic acid 3.5. Hb drop noted. Getting transfused 2 units PRBCs. Platelet count is ~40k. Continue to monitor labs closely. Critical care team on board. 10/05; xray reviewed, concerning for multifocal infilrate, likely underlying Pn eumonia, will add ID consult to assist with management of this critically ill patient, start tube feed, closely monitor renal system 10/06: Resumed care, remains on mechanical ventilation. No active bleeding, H&H stable. Continue to monitor CBC and BMP. Continue IV antibiotic for underlying pneumonia. Follow critical care and ID recommendation. 10/07: Remains on mechanical ventilation. No active bleeding, H&H stable. Critical care following, wean off ventilation as tolerated. 10/08: Patient had another cardiac arrest last night. Remains on mechanical ventilation, update family. Continue supportive care -poor prognosis 10/09: Called patient mother and discussed about patient care and management. Answered all question to best of my knowledge and family satisfaction. Patient remains on mechanical ventilation, cardiac arrest x2 so far. Critically sick, poor prognosis 10/10: remains on mechanical ventilation. h/h stable, no active bleeding. monitor CBC/BMP 10/11: WBC trended up with diarrhea, started on vancomycin po. remains on MV, off pressor, tolerating TF 10/12: remains on MV, off pressor, tolerating TF. called family for update but unable to reach, could not leave message as it was full. cont supportive care, wean off vent as tolerated. 10/13/2020; patient is on mechanical ventilation, tolerating tube feeding. Patient has labored breathing. Neuro was consulted and recommend MRI. Patient is on Precedex. Rectal tube in place. 10/14/2020; patient is on mechanical ventilation, Precedex. Patient had fever and blood culture ordered. Patient is on IV vancomycin per ID recommendation. Neuro consulted and recommend MRI. Continue to monitor. Prognosis is guarded. 10/15/2020; patient is on mechanical ventilation, Precedex. Patient had fever and blood culture ordered. Patient is on IV vancomycin per ID recommendation. Neuro consulted and recommend MRI. Continue to monitor. Prognosis is guarded. 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 12/06/20; anoxic brain injury. Awaiting placement. 12/07/2020; anoxic brain injury, awaiting placement. 12/09/2020; anoxic brain injury, awaiting placement. 12/10/2020; patient had episodes of fever overnight. CBC, BMP, blood culture, UA and chest x-ray ordered, will follow and manage accordingly. Urinalysis is suggestive of UTI and I put the patient on ceftriaxone, order urine culture. Chest x-ray is normal. 12/11/2020; patient is on ceftriaxone day 2 for UTI. We will continue to follow urine culture. 12/12/2020. Day #3 of Rocephin for UTI. We will continue for 2 more days while she is here. Present UTI. 12/13/2020. Day #4 of Rocephin for UTI. Patient remains on 50% with tracheos serafin. Remains unresponsive with evidence of anoxic encephalopathy unable to make needs known. 12/14/2020. Day #5 of Rocephin for UTI completed today. Remains encephalopathic unable to make needs known. Remains on 50% unable to decrease oxygen via tracheostomy. Overall prognosis remains extremely poor. 3: Continue to monitor. Stop and monitor antibiotics at this time. Continue to wean oxygen as tolerated. Wean oxygen as tolerated. Case management working on placement. 12/16: Continue supportive care aspiration precautions. Awaiting placement discussion. Monitor fever curve. Prognosis remains poor no evidence of neurological recovery as of today 12/17: Continue supportive care, check labs and chest xray. Still monitor off antibiotics. Monitor Sodium level 12/18: Patient remains with intermittent low grade fever, reviewed EEG from September again, consistent for Ischemic Hypoxic Encephalopathy, patient with decorticating posturing type presentation. Will discuss with ramp flight attendant to op timize diet so we can discontinue D5. CXR with no abnormality. Discussed extensively with the nursing staff at bedside CXR IMPRESSION: 1. No acute findings. 12/19: No clinical change 12/20: No clinical change, now off abx, monitor, discussed her medications with our pharmacist I believe that her posture and rigidity is likely from underlying anoxic encephalopathy. Continue to monitor and await placement decision. Continue aggressive suctioning. Plan discussed in detail with the nursing staff 12/21: Continue supportive care. Will give 500 cc bolus of fluid today to replace insensible losses. Tachycardia appears to be improving. Blood pressure precludes adjusting cardiac meds. Still awaiting placement from case management. Plan discussed in detail with the nursing staff 12/22. Continue support supportive care. Tracheostomy and PEG in place. Remains nonresponsive. Awaiting placement. 12/23. Continue support supportive care. Tracheostomy and PEG in place. Remains nonresponsive. Awaiting placement. Remains tachycardic. Decrease dose of lasix. Will try low dose metoprolol. Monitor BP closely 12/24. Continue support supportive care. Tracheostomy and PEG in place. Remains nonresponsive. Awaiting placement. Heart rate slightly better. Continue to monitor BP closely 12/25. Continue support supportive care. Tracheostomy and PEG in place. Remains nonresponsive. Awaiting placement. 12/26. Continue support supportive care. Tracheostomy and PEG in place. Remains nonresponsive. Awaiting placement 12/27. Continue support supportive care. Tracheostomy and PEG in place. Remains nonresponsive. Awaiting placement 12/28. Had fever yesterday. Blood culture drawn. UA - UTI - started on antibiotics. Now tracheal aspirate is growing GN rods. 12/29: Continue IV antibiotics, continue supportive care. Since admission patient has shown minimal or no chance of neurological recovery. Need 24/7 assistance. Currently on trach and PEG, nonverbal. Waiting on SNF placement. Discussed with patient case manager today. 12/30: Continue IV antibiotics for UTI, continue supportive care. Pending placement 12/31: continue supportive care. continue supportive care. Pending placement 01/01: continue supportive care. Pending placement. cont Iv abx for UTI till 01/04 01/02: Continue supportive care, pending placement. Sodium level slightly elevated, will start hypotonic fluid. Continue antibiotics till 01/04 01/03; cont hypotonic fluid, increase free water with TF for hypernatremia, follow BMP. cont supportive care. pending placement. cont cefepime. recx blood 01/04: resolved hyponatremia, cont supportive care, pending placement. Last day of supplement today. 01/05: Continue supportive care, pending placement. Monitor H&H and fever curve off antibiotic. 01/06; monitor off abx, suction as needed, Continue supportive care, pending placement. 01/07: Discharge pending on placement, vitals stable. Continue supportive care 01/08: Discharge pending on placement, vitals stable. Continue supportive care. stop lasix, increase metoprolol to 25mg BID for ST. 01/09 patient resting with eyes closed. Opens eyes to tactile stimulus, has a blink reflex, does not follow simple commands, has a T-collar / G-tube Lab results reviewed, low-grade fever, 01/10 Eyes open, does not follow simple commands, no acute events overnight 01/11 no acute events overnight Waiting for placement 01/12 No acute events overnight. Patient awaiting for placement 01/13. No new issues. Awaiting placement 01/14. No new issues. Awaiting placement. 01/15. No new issues. Awaiting placement. 01/16. No new issues. Patient remain stable. Awaiting placement. Check maintenance labs. 01/17. Routine maintenance labs were ordered and are still pending. Await placement. 01/18. Patient with low-grade fever past 24-48 hrs. WBC within normal limits. Check chest x-ray, urinalysis and consider blood cultures. Continue tracheostomy care, secretion control and airway management. Patient currently with PEG and tube feedings at 60 cc an hour. Nutritional support and aspiration precautions. 01/19. Temperature 100.7 overnight. Continue to monitor closely. Continue tracheostomy care, secretion control and airway management. Patient currently with PEG and tube feedings at 60 cc an hour. Nutritional support and aspiration precautions. 01/20. Continue to monitor closely. Continue tracheostomy care, secretion control and airway management. Patient currently with PEG and tube feedings at 60 cc an hour. Nutritional support and aspiration precautions. . History Interval history: Trach in place Not responsive to calls Hospitalist Physical - Physical exam Narrative exam: VITAL SIGNS: Reviewed. GENERAL: Trach in place HEAD: No signs of head trauma. EYES: Pupils are equal. NECK: No adenopathy, no JVD. CHEST: Diminished breath sounds CARDIAC: normal S1 and S2, without murmurs, gallops, or rubs. ABDOMEN: Soft, non tender and non distended. No rebound or guarding, and no masses palpated. Bowel Sounds normal MUSCULOSKELETAL: No edema NEUROLOGIC EXAM: Not responsive SKIN: No obvious lesions - Constitutional Vitals: Temp Pulse Resp BP Pulse Ox 98.8 F 90 16 107/67 94 01/20/21 04:10 01/20/21 04:10 01/20/21 04:10 01/20/21 04:10 01/20/21 04:10 HEART Score - HEART Score Age: < 45 Risk factors: 1-2 risk factors - Critical Actions Critical Actions: >7 pts:50-65% risk of adverse cardiac event. Early invasive measures Results - Labs CBC & Chem 7: 01/17/21 07:40 01/17/21 07:40 Labs: Laboratory Last Values WBC 8.6 K/mm3 (4.5-11.0) 01/17/21 07:40 RBC 5.23 M/mm3 (3.65-5.03) H 01/17/21 07:40 Hgb 12.3 gm/dl (10.1-14.3) 01/17/21 07:40 Hgb Comment See scanned result 10/04/20 Unknown Hct 39.4 % (30.3-42.9) 01/17/21 07:40 MCV 75 fl (79-97) L 01/17/21 07:40 MCH 24 pg (28-32) L 01/17/21 07:40 MCHC 31 % (30-34) 01/17/21 07:40 RDW 14.1 % (13.2-15.2) 01/17/21 07:40 Plt Count 293 K/mm3 (140-440) 01/17/21 07:40 Lymph % (Auto) 23.8 % (13.4-35.0) 01/17/21 07:40 [place] % (Auto) 8.2 % (0.0-7.3) H 01/17/21 07:40 Eos % (Auto) 1.2 % (0.0-4.3) 01/17/21 07:40 Baso % (Auto) 0.3 % (0.0-1.8) 01/17/21 07:40 Lymph # (Auto) 2.0 K/mm3 (1.2-5.4) 01/17/21 07:40 [place] # (Auto) 0.7 K/mm3 (0.0-0.8) 01/17/21 07:40 Eos # (Auto) 0.1 K/mm3 (0.0-0.4) 01/17/21 07:40 Baso # (Auto) 0.0 K/mm3 (0.0-0.1) 01/17/21 07:40 Add Manual Diff Complete 12/10/20 09:37 Total Counted 100 12/10/20 09:37 Seg Neutrophils % 66.5 % (40.0-70.0) 01/17/21 07:40 Seg Neuts % (Manual) 81.0 % (40.0-70.0) H 12/10/20 09:37 Band Neutrophils % 2.0 % 10/15/20 05:50 Lymphocytes % (Manual) 17.0 % (13.4-35.0) 12/10/20 09:37 Reactive Lymphs % (Man) 1.0 % 10/02/20 12:18 Monocytes % (Manual) 2.0 % (0.0-7.3) 12/10/20 09:37 Eosinophils % (Manual) 1.0 % (0.0-4.3) 10/29/20 07:56 Myelocytes % 2.0 % 10/02/20 13:05 Metamyelocytes % 1.0 % 10/14/20 04:00 Nucleated RBC % Not Reportable 12/10/20 09:37 Seg Neutrophils # 5.7 K/mm3 (1.8-7.7) 01/17/21 07:40 Seg Neutrophils # Man 10.1 K/mm3 (1.8-7.7) H 12/10/20 09:37 Band Neutrophils # 0.0 K/mm3 12/10/20 09:37 Lymphocytes # (Manual) 2.1 K/mm3 (1.2-5.4) 12/10/20 09:37 Abs React Lymphs (Man) 0.0 K/mm3 12/10/20 09:37 Monocytes # (Manual) 0.3 K/mm3 (0.0-0.8) 12/10/20 09:37 Eosinophils # (Manual) 0.0 K/mm3 (0.0-0.4) 12/10/20 09:37 Basophils # (Manual) 0.0 K/mm3 (0.0-0.1) 12/10/20 09:37 Metamyelocytes # 0.0 K/mm3 12/10/20 09:37 Myelocytes # 0.0 K/mm3 12/10/20 09:37 Promyelocytes # 0.0 K/mm3 12/10/20 09:37 Blast Cells # 0.0 K/mm3 12/10/20 09:37 WBC Morphology Not Reportable 12/10/20 09:37 Hypersegmented Neuts Not Reportable 12/10/20 09:37 Hyposegmented Neuts Not Reportable 12/10/20 09:37 Hypogranular Neuts Not Reportable 12/10/20 09:37 Smudge Cells Not Reportable 12/10/20 09:37 Toxic Granulation Not Reportable 12/10/20 09:37 Toxic Vacuolation Not Reportable 12/10/20 09:37 Dohle Bodies Not Reportable 12/10/20 09:37 Pelger-Huet Anomaly Not Reportable 12/10/20 09:37 Ester Rods Not Reportable 12/10/20 09:37 Platelet Estimate Consistent w auto 12/10/20 09:37 Clumped Platelets Not Reportable 12/10/20 09:37 Plt Clumps, EDTA Not Reportable 12/10/20 09:37 Large Platelets Not Reportable 12/10/20 09:37 Giant Platelets Not Reportable 12/10/20 09:37 Platelet Satelliting Not Reportable 12/10/20 09:37 Plt Morphology Comment Not Reportable 12/10/20 09:37 RBC Morphology Normal 12/10/20 09:37 Dimorphic RBCs Not Reportable 12/10/20 09:37 Polychromasia Not Reportable 12/10/20 09:37 Hypochromasia 1+ 12/10/20 09:37 Poikilocytosis Not Reportable 12/10/20 09:37 Anisocytosis Not Reportable 12/10/20 09:37 Microcytosis Not Reportable 12/10/20 09:37 Macrocytosis Not Reportable 12/10/20 09:37 Spherocytes Not Reportable 12/10/20 09:37 Pappenheimer Bodies Not Reportable 12/10/20 09:37 Sickle Cells Not Reportable 12/10/20 09:37 Target Cells Not Reportable 12/10/20 09:37 Tear Drop Cells Not Reportable 12/10/20 09:37 Ovalocytes Not Reportable 12/10/20 09:37 Stomatocytes Few 10/14/20 04:00 Helmet Cells Not Reportable 12/10/20 09:37 Burk-Olivette Bodies Not Reportable 12/10/20 09:37 [place] Rings Not Reportable 12/10/20 09:37 Antoine Cells Not Reportable 12/10/20 09:37 Bite Cells Not Reportable 12/10/20 09:37 Crenated Cell Not Reportable 12/10/20 09:37 Elliptocytes Not Reportable 12/10/20 09:37 Acanthocytes (Spur) Not Reportable 12/10/20 09:37 Rouleaux Not Reportable 12/10/20 09:37 Hemoglobin C Crystals Not Reportable 12/10/20 09:37 Schistocytes Not Reportable 12/10/20 09:37 Malaria parasites Not Reportable 12/10/20 09:37 Sickle Cell Solubility See scanned result 10/04/20 Unknown Hemoglobin A See scanned result 10/04/20 Unknown Hemoglobin A2 See scanned result 10/04/20 Unknown Hemoglobin A2 Prime See scanned result 10/04/20 Unknown Hemoglobin C See scanned result 10/04/20 Unknown Hemoglobin D See scanned result 10/04/20 Unknown Hemoglobin E See scanned result 10/04/20 Unknown Hgb F Diffential Stain See scanned result 10/04/20 Unknown Hemoglobin F Quant See scanned result 10/04/20 Unknown Hemoglobin G See scanned result 10/04/20 Unknown Hemoglobin S See scanned result 10/04/20 Unknown Hemoglobin [place] See scanned result 10/04/20 Unknown Hemoglobin [place] See scanned result 10/04/20 Unknown Hemoglobin [place] See scanned result 10/04/20 Unknown Variant Hemoglobin See scanned result 10/04/20 Unknown Abnorm Hgb IEF Confirm See scanned result 10/04/20 Unknown Hemoglobin Interpret See scanned result 10/04/20 Unknown Hemoglobinopathy Note See scanned result 10/04/20 Unknown Sharad Bodies Not Reportable 12/10/20 09:37 Hem Pathologist Commnt No 12/10/20 09:37 PT 13.6 Sec. (12.2-14.9) 10/21/20 13:54 INR 1.06 (0.87-1.13) 10/21/20 13:54 APTT 31.6 Sec. (24.2-36.6) 10/03/20 00:40 Fibrinogen 336 mg/dl (211-480) 10/04/20 10:00 D-Dimer 1974.47 ng/mlDDU (0-234) H 11/11/20 13:50 ABG pH 7.459 pH Units (7.350-7.450) H 10/26/20 10:30 POC ABG pCO2 20.7 mmHg (32.0-48.0) L 10/13/20 07:18 ABG pCO2 32.4 mm Hg 10/26/20 10:30 POC ABG pO2 137.9 mmHg (83-108) H 10/13/20 07:18 ABG pO2 112.2 mm Hg (80.0-90.0) H 10/26/20 10:30 POC ABG HCO3 14.8 10/13/20 07:18 ABG HCO3 22.5 mmol/L (20.0-26.0) 10/26/20 10:30 ABG O2 Saturation 98.2 % (95.0-99.0) 10/26/20 10:30 ABG O2 Content 18.5 (0.0-44) 10/26/20 10:30 POC ABG Base Excess -6.9 10/13/20 07:18 ABG Base Excess -0.6 mmol/L (-2.0-3.0) 10/26/20 10:30 ABG Hemoglobin 13.5 gm/dl (12.0-16.0) 10/26/20 10:30 ABG Oxyhemoglobin 98.3 (94-98) H 10/13/20 07:18 ABG Carboxyhemoglobin 1.3 % (0.0-5.0) 10/26/20 10:30 ABG Methemoglobin 0.5 % (0.0-1.5) 10/26/20 10:30 ABG Sodium 135.9 mmol/L (136.0-145.0) L 10/13/20 07:18 ABG Potassium 3.7 mmol/L (3.40-4.50) 10/13/20 07:18 ABG Chloride 111.0 mmol/L (98-107) H 10/13/20 07:18 ABG Glucose 109 mg/dL (65-95) H 10/13/20 07:18 VBG pH 6.949 (7.320-7.420) L* 10/02/20 Unknown Oxyhemoglobin 96.5 % (95.0-99.0) 10/26/20 10:30 Carboxyhemoglobin 0.3 (0.5-1.5) L 10/13/20 07:18 FiO2 25 % 10/26/20 10:30 Sodium 135 mmol/L (137-145) L 01/17/21 07:40 Potassium 4.6 mmol/L (3.6-5.0) 01/17/21 07:40 Chloride 99.0 mmol/L (98-107) 01/17/21 07:40 Carbon Dioxide 23 mmol/L (22-30) 01/17/21 07:40 Anion Gap 18 mmol/L 01/17/21 07:40 BUN 9 mg/dL (7-17) 01/17/21 07:40 Creatinine 0.6 mg/dL (0.6-1.2) 01/17/21 07:40 Estimated GFR > 60 ml/min 01/17/21 07:40 BUN/Creatinine Ratio 15 % 01/17/21 07:40 Glucose 85 mg/dL (65-100) 01/17/21 07:40 POC Glucose 99 mg/dL (70-105) 01/20/21 07:06 Random Insulin 43.2 uIU/mL (<=19.6) H 11/02/20 19:19 Proinsulin See scanned result 11/02/20 19:19 C-Peptide 6.23 ng/mL (0.80-3.85) H 11/02/20 19:19 Lactic Acid 1.90 mmol/L (0.7-2.0) 10/04/20 22:00 Uric Acid 7.5 mg/dL (3.5-7.6) 10/02/20 13:05 Calcium 9.5 mg/dL (8.4-10.2) 01/17/21 07:40 Ionized Calcium 4.4 mg/dL (4.8-5.6) L 10/07/20 21:00 Phosphorus 4.60 mg/dL (2.5-4.5) H 11/13/20 10:05 Magnesium 2.10 mg/dL (1.7-2.3) 11/13/20 10:05 Total Bilirubin 0.40 mg/dL (0.1-1.2) 12/22/20 11:03 AST 45 units/L (5-40) H 12/22/20 11:03 ALT 33 units/L (7-56) 12/22/20 11:03 Alkaline Phosphatase 100 units/L (35-129) 12/22/20 11:03 Lactate Dehydrogenase 769 units/L (91-180) H 10/02/20 13:05 C-Reactive Protein 0.70 mg/dL (0.00-1.30) 11/11/20 13:50 NT-Pro-B Natriuret Pep 2788 pg/mL (0-450) H 10/04/20 10:00 Total Protein 7.5 g/dL (6.3-8.2) 12/22/20 11:03 Albumin 3.8 g/dL (3.9-5) L 12/22/20 11:03 Albumin/Globulin Ratio 1.0 % 12/22/20 11:03 Procalcitonin < 0.05 ng/mL (<0.15) 12/27/20 20:16 Arterial Blood Glucose 109 mg/dL (65-95) H 10/13/20 07:18 Arterial Blood Ionized Calcium 4.6 mg/dL (4.6-5.3) 10/13/20 07:18 Urine Color Yellow (Yellow) 01/18/21 08:47 Urine Turbidity Slightly-cloudy (Clear) 01/18/21 08:47 Urine pH 8.0 (5.0-7.0) H 01/18/21 08:47 Ur Specific [place] 1.009 (1.003-1.030) 01/18/21 08:47 Urine Protein <15 mg/dl mg/dL (Negative) 01/18/21 08:47 Urine Glucose (UA) Neg mg/dL (Negative) 01/18/21 08:47 Urine Ketones Neg mg/dL (Negative) 01/18/21 08:47 Urine Blood Neg (Negative) 01/18/21 08:47 Urine Nitrite Neg (Negative) 01/18/21 08:47 Urine Bilirubin Neg (Negative) 01/18/21 08:47 Urine Urobilinogen < 2.0 mg/dL (<2.0) 01/18/21 08:47 Ur Leukocyte Esterase Neg (Negative) 01/18/21 08:47 Urine WBC (Auto) 1.0 /HPF (0.0-6.0) 01/18/21 08:47 Urine RBC (Auto) 1.0 /HPF (0.0-6.0) 01/18/21 08:47 U Epithel Cells (Auto) 1.0 /HPF (0-13.0) 01/18/21 08:47 Urine Bacteria (Auto) 1+ /HPF (Negative) 01/18/21 08:47 Urine WBC Clumps 3+ /HPF 11/11/20 13:50 Calcium Oxalate Crystal Few 11/11/20 13:50 Urine Mucus 3+ /HPF 12/27/20 22:25 Urine Yeast (Budding) 2+ /HPF 12/10/20 09:25 Vancomycin Trough 12.6 ug/mL (5.0-20.0) 10/21/20 13:54 Random Vancomycin 10.7 ug/mL (0-40.0) 10/16/20 13:09 Phenytoin 5.7 ug/mL (10.0-20.0) L 10/13/20 07:00 C. difficile Tox (PCR) Positive (Negative) 10/16/20 10:22 Coronavirus (PCR) Negative (Negative) 10/08/20 14:15 Blood Type O POSITIVE 10/02/20 12:50 Antibody Screen Negative 10/02/20 12:50 Crossmatch See Detail 10/02/20 12:50 - Diagnostic Impressions Diagnostic Impressions: Echocardiogram 10/03/20 13:42 Transthoracic Echocardiogram Indication: S/P Cardiac Arrest R/O Cardiomyopathy BP: 133/71 Conclusions *Global left ventricular systolic function is normal. *The estimated ejection fraction is 60-65%. *There is trace of mitral regurgitation. *The right 0heart chambers are both slightly dilated. *There is mild tricuspid regurgitation. *There is mild-moderate pulmonary hypertension. *The right ventricular systolic pressure is calculated at 44 mmHg. *The study quality is technically difficult. Findings Procedure Info: The study quality is technically difficult. The study is technically limited due to patient body habitus. The study was technically limited due to the patient's inability to lay in the left lateral decubitus position. Left Ventricle: The left ventricular chamber size is normal. There is no left ventricular hypertrophy. Global left ventricular systolic function is normal. The estimated ejection fraction is 60-65%. Left Atrium: The left atrial chamber size is normal. Right Ventricle: The right ventricle is slightly dilated. Right Atrium: The right atrium is mildly dilated. Aortic Valve: The aortic valve leaflets are mildly thickened. There is no evidence of aortic regurgitation. There is no evidence of aortic stenosis. Mitral Valve: The mitral valve leaflets are mildly thickened. There is trace of mitral regurgitation. There is no evidence of mitral stenosis. Tricuspid Valve: There is mild tricuspid regurgitation. The right ventricular systolic pressure is calculated at 44 mmHg. There is evidence of mild pulmonary hypertension. Pulmonic Valve: There is trace pulmonic regurgitation. Pericardium: There is no pericardial effusion. Aorta: There is no dilatation of the ascending aorta. There is no dilatation of the aortic root. Venous: The inferior vena cava is dilated. Measurements Chambers 2D Name Value Normal Range IVSd (2D) 1 cm (0.6 - 1.1) LVPWd (2D) 1.01 cm (0.6 - 1.1) LVIDd (2D) 4.58 cm (3.7 - 5.6) LVIDs (2D) 3.17 cm (2 - 3.8) LV FS (2D) 30.93 % - EF Teichholz (2D) 58.66 % - Ao root diameter (2D) 2.94 cm (2 - 3.7) Volumes/Mass Name Value Normal Range LA ESV SP 4CH (A/L) 72.82 ml - LA ESV SP 2CH (A/L) 66.86 ml - LA ESV BP (A/L) 74.49 ml - LA ESV SP 4CH (MOD) 71.03 ml - LA ESV SP 2CH (MOD) 64.3 ml - LV EDV SP 4CH (MOD) 98.82 ml - LV ESV SP 4CH (MOD) 24.8 ml - EF SP 4CH (MOD) 74.9 % - LV EDV SP 2CH (MOD) 86.1 ml - LV ESV SP 2CH (MOD) 36.93 ml - EF SP 2CH (MOD) 57.11 % - LV EDV BP 94.4 ml - LV ESV BP 32.66 ml - BP EF (MOD) 65.4 % - Diastolic/Systolic Function Name Value Normal Range MV E-wave Vmax 1.04 m/sec - MV deceleration time 160.46 msec - MV A-wave Vmax 0.92 m/sec - MV E:A ratio 1.14 ratio - Aortic Valve Name Value Normal Range AV Vmax 2.12 m/sec - AV VTI 22.37 cm - AV peak gradient 17.95 mmHg - AV mean gradient 7.29 mmHg - LVOT diameter 2.01 cm - LVOT Vmax 1.8 m/sec - LVOT VTI 27.17 cm - LVOT peak gradient 12.91 mmHg - LVOT mean gradient 6.83 mmHg - SV LVOT 86.42 ml - ANITA (continuity Vmax) 2.7 cm2 - ANITA (continuity VTI) 3.86 cm2 - Ascending Ao 3.18 cm - Tricuspid Valve Name Value Normal Range TV E-wave Vmax 0.88 m/sec - TR Vmax 3.01 m/sec - TR peak gradient 36.27 mmHg - RAP 8 mmHg - RVSP 44 mmHg - IVC diameter 2.65 cm (1.2 - 2.3) Pulmonic Valve/Qp:Qs Name Value Normal Range PV Vmax 1.22 m/sec - PV peak gradient 5.91 mmHg - RVOT Vmax 0.87 m/sec - RVOT VTI 13.32 cm - RVOT peak gradient 3 mmHg - PV acceleration time 110.37 msec - [place]/IV: Voiding Method External Female Catheter IV Catheter Type [Right Foot] INT / Saline Lock IV Catheter Type [Left Forearm Peripheral IV ] IV Catheter Type [Left Wrist] INT / Saline Lock IV Catheter Type [Right Hand] INT / Saline Lock IV Catheter Type [Right INT / Saline Lock Antecubital] IV Catheter Type [Right Upper Mid-line arm] IV Catheter Type [Left Triple Lumen Cath Internal Jugular] IV Catheter Type [Left Hand] Peripheral IV IV Catheter Type [Left Peripheral IV Antecubital] Active Medications - Current Medications Current Medications: Generic Name Dose Route Start Last Admin Trade Name Freq PRN Reason Stop Dose Admin Acetaminophen 650 mg 10/05/20 16:34 01/19/21 18:42 Acetaminophen 325 Mg/10.15 Ml Oral Liqd Unit Dose FEEDTUBE 650 mg Q6H PRN Administration Non Cardiac Pain or Temp>100.5 Albuterol 2.5 mg 11/05/20 13:03 11/06/20 13:04 Albuterol 2.5 Mg/3 Ml Nebu IH 2.5 mg Q4HRT PRN Administration Shortness Of Breath Lipase/Protease/Amylase 1 each 10/05/20 11:09 Lipase 10,500/Protease 25,000/Amylase 43,750 (Units) Dr Barakat FEEDTUBE PRN PRN For Clogged Feeding Tube Enoxaparin Sodium 40 mg 10/22/20 10:00 01/19/21 10:55 Enoxaparin 40 Mg/0.4 Ml Inj SUB-Q 40 mg DAILY ERINN Administration Protocol Famotidine 20 mg 10/07/20 10:00 01/19/21 21:44 Famotidine 20 Mg Tab PO 20 mg BID ERINN Administration Hydralazine HCl 20 mg 10/07/20 11:49 10/17/20 07:20 Hydralazine 20 Mg/1 Ml Inj IV 20 mg Q6H PRN Administration SBP >170 Hydrophilic Ointment 1 applic 01/03/21 13:00 Lip Therapy Vaseline TP DIRECT PRN Dry Lips Dextrose 1,000 mls @ 30 mls/hr 01/03/21 12:00 01/19/21 13:45 D5w IV 75 mls/hr DIRECT ERINN Administration Metoprolol Tartrate 25 mg 01/08/21 22:00 01/19/21 21:44 Metoprolol Tartrate 25 Mg Tab PO 25 mg BID ERINN Administration Polyethylene Glycol 17 gm 12/27/20 15:07 12/28/20 10:05 Polyethylene Glycol 3350 17 Gm Powder PO 17 gm QDAY PRN Administration Constipation Simple Syrup 15 ml 10/05/20 11:09 Simple Syrup 15 Ml FEEDTUBE PRN PRN Hypoglycemia Simple Syrup 30 ml 10/05/20 11:09 Simple Syrup 15 Ml FEEDTUBE PRN PRN Hypoglycemia Sodium Bicarbonate 325 mg 10/05/20 11:09 12/16/20 08:19 Sodium Bicarbonate 325 Mg Tab FEEDTUBE 325 mg PRN PRN Administration For Clogged Feeding Tube Nutrition/Malnutrition Assess - Dietary Evaluation Nutrition/Malnutrition Findings: Nutrition Notes Start: 10/04/20 11:13 Freq: Status: Active Protocol: Document 01/18/21 12:18 BREANNA (Rec: 01/18/21 12:24 BREANNA [email or web address]) Nutrition Notes Initial or Follow up Reassessment Current Diagnosis Respiratory Failure Other Pertinent Diagnosis s/p cardiac arrest x 2, anoxic brain injury Current Diet TF - Jevity 1.2 at 60ml/hr Labs/Tests Na 135 (yesterday) Pertinent Medications reviewed Height 5 ft 8 in Weight 97 kg [place] Body Weight (kg) 63.63 BMI 32.5 Weight change and time frame Wt change noted Weight Status Obese Subjective/Other Information Pt continues to tolerate TF at goal rate. She is awaiting placement. Percent of energy/protein needs met: 83% energy 100% pro Burn Absent Trauma Absent #2 Nutrition Diagnosis Malnutrition Diagnosis Progress(for reassessment Continues documentation) #1 Nutrition Diagnosis Inadequate oral intake Diagnosis Progress(for reassessment Continues documentation) Is patient on ventilator? No Is Patient Ambulatory and/or Out of Bed No REE-([place]-St. Jeor-confined to bed) 2075.108 Kcal/Kg value to use for calculation 16 Approximate Energy Requirements Using 1552 kcal/Kg Calculation Used for Recommendations [place]-St Jeor Additional Notes Pro needs 0.8-1g/kg adjBW: 63- 79g/day Fluid needs 1ml/kcal Nutrition Intervention Nutrition Support: Continue Jevity 1.2 at 60ml/hr . Flush 100ml q4h. Kcal 1,728 Protein (gm) 80 Fluid (mL) 1,162 Goal #1 TF tolerance Goal #2 TF to meet at least 75% energy and pro needs Follow-Up By: 01/25/21 Additional Comments F/U: stable TF, wt
[2021-01-20] MEDS ORDERED: MORPHINE 2 MG/1 ML INJ IV PRN (13:33)
[2021-01-20] MEDS: ACETAMINOPHEN 325 MG/10.15 ML ORAL LIQD UNIT DOSE FEEDTUBE PRN (14:05)
[2021-01-20] MEDS: ALPRAZolam 0.25 MG TAB PO PRN (14:05)
[2021-01-20] MEDS: DEXTROSE 5% IN WATER 1,000 ML IV SCH (20:04)
[2021-01-21] MEDS: ENOXAPARIN 40 MG/0.4 ML INJ SUB-Q SCH (09:39)
[2021-01-21] MEDS: METOPROLOL TARTRATE 25 MG TAB PO SCH ×2 (09:39→22:07)
[2021-01-21] MEDS: FAMOTIDINE 20 MG TAB PO SCH ×2 (09:39→22:08)
--- NOTE | 2021-01-21 10:30 | Progress Note ---
Assessment and Plan Assessment and plan: --DIC (disseminated intravascular coagulation) vs HELLP syndrome Resolved --Possible Eclampsia/HELLP Syndrome Resolved --s/p Cardiac arrest x2 on admission and on 10/07 ACLS protocol followed by revival Echo showed preserved Ef --Anoxic brain injury, Developed following cardiac arrest, continue supportive care --Shock-resolved now awaiting placement s/p pressor support --ADOLPH-resolved Stable --Sepsis 2/2 UTI s/p cefepime to cover possible pseudomonas as sputum is also growing GN rods till 01/04/21 Previous urine culture grew pansensitive ecoli Blood cultures from 12/27-no growth --Hypernatremia, resolved, cont free water with TF --DVT prophylaxis Patient presented with DIC No anticoagulants Overall prognosis extremely poor. Daily clinical course 10/02/21 11:30: Pt brought to L&D triage for evaluation of possible labor. Pt accompanied by her spouse. Pt spouse poor historian; unable to obtain history- allergies at this time. Pt taken from registration to triage area via WC. Pt unresponsive, actively seizing with snorous respirations. alteration manager, Kassy, called and requesting assistance. 11:35: Multiple staff at bedside. Pt 02 sat 67% on nonrebreather, unable to read BP at this time. Yifan Theodore CRNA, at bedside for intubation and assistance with IV insertion. INT attempt by multiple RNs unsuccessful at this time. 11:42: Pt being bagged by KORIN, 02% 79%. No pulse palpated, compressions started at this time; bharati young called and Dr. Newberry preparing OR for emergent c/s. 11:44: Continued compressions on stretcher while transporting pt to OR 1. Pt being bagged with jaw thrust manuever in place by KORIN Stringer student. 11:45: Arrival to OR 1. Dr. Newberry and Dr. Portillo present for emergent c/s. Code team arrived for continued care. patient revived and c/s done Patient has been bleeding from C/s site followed by supracervical hysterectomy for severe bleeding Patient transfused multiple units of PRBC, Patient in DIC. Transferred to the ICU 10/03. Patient seen and examined at bedside this morning. Patient is nonresponsive and mechanically ventilated. On pressors. Labs reviewed-has leukocytosis, anemia, thrombocytopenia, ADOLPH and lactic acidosis. Started on IV antibiotics to cover possible sepsis secondary to DIC. Hematology oncology recommendations appreciated-needs additional cryoprecipitate and FFP. Monitor D-dimer, fibrinogen and frequent labs. Nephrology consulted for lactic acidosis and ADOLPH. 10/04. Remains mechanically ventilated. Kevin antibiotics. Labs shows improved acidosis - lactic acid 3.5. Hb drop noted. Getting transfused 2 units PRBCs. Platelet count is ~40k. Continue to monitor labs closely. Critical care team on board. 10/05; xray reviewed, concerning for multifocal infilrate, likely underlying Pn eumonia, will add ID consult to assist with management of this critically ill patient, start tube feed, closely monitor renal system 10/06: Resumed care, remains on mechanical ventilation. No active bleeding, H&H stable. Continue to monitor CBC and BMP. Continue IV antibiotic for underlying pneumonia. Follow critical care and ID recommendation. 10/07: Remains on mechanical ventilation. No active bleeding, H&H stable. Critical care following, wean off ventilation as tolerated. 10/08: Patient had another cardiac arrest last night. Remains on mechanical ventilation, update family. Continue supportive care -poor prognosis 10/09: Called patient mother and discussed about patient care and management. Answered all question to best of my knowledge and family satisfaction. Patient remains on mechanical ventilation, cardiac arrest x2 so far. Critically sick, poor prognosis 10/10: remains on mechanical ventilation. h/h stable, no active bleeding. monitor CBC/BMP 10/11: WBC trended up with diarrhea, started on vancomycin po. remains on MV, off pressor, tolerating TF 10/12: remains on MV, off pressor, tolerating TF. called family for update but unable to reach, could not leave message as it was full. cont supportive care, wean off vent as tolerated. 10/13/2020; patient is on mechanical ventilation, tolerating tube feeding. Patient has labored breathing. Neuro was consulted and recommend MRI. Patient is on Precedex. Rectal tube in place. 10/14/2020; patient is on mechanical ventilation, Precedex. Patient had fever and blood culture ordered. Patient is on IV vancomycin per ID recommendation. Neuro consulted and recommend MRI. Continue to monitor. Prognosis is guarded. 10/15/2020; patient is on mechanical ventilation, Precedex. Patient had fever and blood culture ordered. Patient is on IV vancomycin per ID recommendation. Neuro consulted and recommend MRI. Continue to monitor. Prognosis is guarded. 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 12/06/20; anoxic brain injury. Awaiting placement. 12/07/2020; anoxic brain injury, awaiting placement. 12/09/2020; anoxic brain injury, awaiting placement. 12/10/2020; patient had episodes of fever overnight. CBC, BMP, blood culture, UA and chest x-ray ordered, will follow and manage accordingly. Urinalysis is suggestive of UTI and I put the patient on ceftriaxone, order urine culture. Chest x-ray is normal. 12/11/2020; patient is on ceftriaxone day 2 for UTI. We will continue to follow urine culture. 12/12/2020. Day #3 of Rocephin for UTI. We will continue for 2 more days while she is here. Present UTI. 12/13/2020. Day #4 of Rocephin for UTI. Patient remains on 50% with tracheos serafin. Remains unresponsive with evidence of anoxic encephalopathy unable to make needs known. 12/14/2020. Day #5 of Rocephin for UTI completed today. Remains encephalopathic unable to make needs known. Remains on 50% unable to decrease oxygen via tracheostomy. Overall prognosis remains extremely poor. 3: Continue to monitor. Stop and monitor antibiotics at this time. Continue to wean oxygen as tolerated. Wean oxygen as tolerated. Case management working on placement. 12/16: Continue supportive care aspiration precautions. Awaiting placement discussion. Monitor fever curve. Prognosis remains poor no evidence of neurological recovery as of today 12/17: Continue supportive care, check labs and chest xray. Still monitor off antibiotics. Monitor Sodium level 12/18: Patient remains with intermittent low grade fever, reviewed EEG from September again, consistent for Ischemic Hypoxic Encephalopathy, patient with decorticating posturing type presentation. Will discuss with instrument and controls technician to op timize diet so we can discontinue D5. CXR with no abnormality. Discussed extensively with the nursing staff at bedside CXR IMPRESSION: 1. No acute findings. 12/19: No clinical change 12/20: No clinical change, now off abx, monitor, discussed her medications with our pharmacist I believe that her posture and rigidity is likely from underlying anoxic encephalopathy. Continue to monitor and await placement decision. Continue aggressive suctioning. Plan discussed in detail with the nursing staff 12/21: Continue supportive care. Will give 500 cc bolus of fluid today to replace insensible losses. Tachycardia appears to be improving. Blood pressure precludes adjusting cardiac meds. Still awaiting placement from case management. Plan discussed in detail with the nursing staff 12/22. Continue support supportive care. Tracheostomy and PEG in place. Remains nonresponsive. Awaiting placement. 12/23. Continue support supportive care. Tracheostomy and PEG in place. Remains nonresponsive. Awaiting placement. Remains tachycardic. Decrease dose of lasix. Will try low dose metoprolol. Monitor BP closely 12/24. Continue support supportive care. Tracheostomy and PEG in place. Remains nonresponsive. Awaiting placement. Heart rate slightly better. Continue to monitor BP closely 12/25. Continue support supportive care. Tracheostomy and PEG in place. Remains nonresponsive. Awaiting placement. 12/26. Continue support supportive care. Tracheostomy and PEG in place. Remains nonresponsive. Awaiting placement 12/27. Continue support supportive care. Tracheostomy and PEG in place. Remains nonresponsive. Awaiting placement 12/28. Had fever yesterday. Blood culture drawn. UA - UTI - started on antibiotics. Now tracheal aspirate is growing GN rods. 12/29: Continue IV antibiotics, continue supportive care. Since admission patient has shown minimal or no chance of neurological recovery. Need 24/7 assistance. Currently on trach and PEG, nonverbal. Waiting on SNF placement. Discussed with mental health case manager today. 12/30: Continue IV antibiotics for UTI, continue supportive care. Pending placement 12/31: continue supportive care. continue supportive care. Pending placement 01/01: continue supportive care. Pending placement. cont Iv abx for UTI till 01/04 01/02: Continue supportive care, pending placement. Sodium level slightly elevated, will start hypotonic fluid. Continue antibiotics till 01/04 01/03; cont hypotonic fluid, increase free water with TF for hypernatremia, follow BMP. cont supportive care. pending placement. cont cefepime. recx blood 01/04: resolved hyponatremia, cont supportive care, pending placement. Last day of supplement today. 01/05: Continue supportive care, pending placement. Monitor H&H and fever curve off antibiotic. 01/06; monitor off abx, suction as needed, Continue supportive care, pending placement. 01/07: Discharge pending on placement, vitals stable. Continue supportive care 01/08: Discharge pending on placement, vitals stable. Continue supportive care. stop lasix, increase metoprolol to 25mg BID for ST. 01/09 patient resting with eyes closed. Opens eyes to tactile stimulus, has a blink reflex, does not follow simple commands, has a T-collar / G-tube Lab results reviewed, low-grade fever, 01/10 Eyes open, does not follow simple commands, no acute events overnight 01/11 no acute events overnight Waiting for placement 01/12 No acute events overnight. Patient awaiting for placement 01/13. No new issues. Awaiting placement 01/14. No new issues. Awaiting placement. 01/15. No new issues. Awaiting placement. 01/16. No new issues. Patient remain stable. Awaiting placement. Check maintenance labs. 01/17. Routine maintenance labs were ordered and are still pending. Await placement. 01/18. Patient with low-grade fever past 24-48 hrs. WBC within normal limits. Check chest x-ray, urinalysis and consider blood cultures. Continue tracheostomy care, secretion control and airway management. Patient currently with PEG and tube feedings at 60 cc an hour. Nutritional support and aspiration precautions. 01/19. Temperature 100.7 overnight. Continue to monitor closely. Continue tracheostomy care, secretion control and airway management. Patient currently with PEG and tube feedings at 60 cc an hour. Nutritional support and aspiration precautions. 01/20. Continue to monitor closely. Continue tracheostomy care, secretion control and airway management. Patient currently with PEG and tube feedings at 60 cc an hour. Nutritional support and aspiration precautions. 01/21. Afebrile overnight. Continue to monitor closely. Continue tracheostomy care, secretion control and airway management. Patient currently with PEG and tube feedings at 60 cc an hour. Nutritional support and aspiration precautions. History Interval history: Trach in place Not responsive to calls Hospitalist Physical - Physical exam Narrative exam: VITAL SIGNS: Reviewed. GENERAL: Trach in place HEAD: No signs of head trauma. EYES: Pupils are equal. NECK: No adenopathy, no JVD. CHEST: Diminished breath sounds CARDIAC: normal S1 and S2, without murmurs, gallops, or rubs. ABDOMEN: Soft, non tender and non distended. No rebound or guarding, and no masses palpated. Bowel Sounds normal MUSCULOSKELETAL: No edema NEUROLOGIC EXAM: Not responsive SKIN: No obvious lesions - Constitutional Vitals: Temp Pulse Resp BP Pulse Ox 98.7 F 97 H 18 105/57 98 01/21/21 05:16 01/21/21 05:16 01/21/21 05:16 01/21/21 05:16 01/21/21 05:16 General appearance: Present: other (Persistent vegetative state) HEART Score - HEART Score Age: < 45 Risk factors: 1-2 risk factors - Critical Actions Critical Actions: >7 pts:50-65% risk of adverse cardiac event. Early invasive measures Results - Labs CBC & Chem 7: 01/17/21 07:40 01/17/21 07:40 Labs: Laboratory Last Values WBC 8.6 K/mm3 (4.5-11.0) 01/17/21 07:40 RBC 5.23 M/mm3 (3.65-5.03) H 01/17/21 07:40 Hgb 12.3 gm/dl (10.1-14.3) 01/17/21 07:40 Hgb Comment See scanned result 10/04/20 Unknown Hct 39.4 % (30.3-42.9) 01/17/21 07:40 MCV 75 fl (79-97) L 01/17/21 07:40 MCH 24 pg (28-32) L 01/17/21 07:40 MCHC 31 % (30-34) 01/17/21 07:40 RDW 14.1 % (13.2-15.2) 01/17/21 07:40 Plt Count 293 K/mm3 (140-440) 01/17/21 07:40 Lymph % (Auto) 23.8 % (13.4-35.0) 01/17/21 07:40 [place] % (Auto) 8.2 % (0.0-7.3) H 01/17/21 07:40 Eos % (Auto) 1.2 % (0.0-4.3) 01/17/21 07:40 Baso % (Auto) 0.3 % (0.0-1.8) 01/17/21 07:40 Lymph # (Auto) 2.0 K/mm3 (1.2-5.4) 01/17/21 07:40 [place] # (Auto) 0.7 K/mm3 (0.0-0.8) 01/17/21 07:40 Eos # (Auto) 0.1 K/mm3 (0.0-0.4) 01/17/21 07:40 Baso # (Auto) 0.0 K/mm3 (0.0-0.1) 01/17/21 07:40 Add Manual Diff Complete 12/10/20 09:37 Total Counted 100 12/10/20 09:37 Seg Neutrophils % 66.5 % (40.0-70.0) 01/17/21 07:40 Seg Neuts % (Manual) 81.0 % (40.0-70.0) H 12/10/20 09:37 Band Neutrophils % 2.0 % 10/15/20 05:50 Lymphocytes % (Manual) 17.0 % (13.4-35.0) 12/10/20 09:37 Reactive Lymphs % (Man) 1.0 % 10/02/20 12:18 Monocytes % (Manual) 2.0 % (0.0-7.3) 12/10/20 09:37 Eosinophils % (Manual) 1.0 % (0.0-4.3) 10/29/20 07:56 Myelocytes % 2.0 % 10/02/20 13:05 Metamyelocytes % 1.0 % 10/14/20 04:00 Nucleated RBC % Not Reportable 12/10/20 09:37 Seg Neutrophils # 5.7 K/mm3 (1.8-7.7) 01/17/21 07:40 Seg Neutrophils # Man 10.1 K/mm3 (1.8-7.7) H 12/10/20 09:37 Band Neutrophils # 0.0 K/mm3 12/10/20 09:37 Lymphocytes # (Manual) 2.1 K/mm3 (1.2-5.4) 12/10/20 09:37 Abs React Lymphs (Man) 0.0 K/mm3 12/10/20 09:37 Monocytes # (Manual) 0.3 K/mm3 (0.0-0.8) 12/10/20 09:37 Eosinophils # (Manual) 0.0 K/mm3 (0.0-0.4) 12/10/20 09:37 Basophils # (Manual) 0.0 K/mm3 (0.0-0.1) 12/10/20 09:37 Metamyelocytes # 0.0 K/mm3 12/10/20 09:37 Myelocytes # 0.0 K/mm3 12/10/20 09:37 Promyelocytes # 0.0 K/mm3 12/10/20 09:37 Blast Cells # 0.0 K/mm3 12/10/20 09:37 WBC Morphology Not Reportable 12/10/20 09:37 Hypersegmented Neuts Not Reportable 12/10/20 09:37 Hyposegmented Neuts Not Reportable 12/10/20 09:37 Hypogranular Neuts Not Reportable 12/10/20 09:37 Smudge Cells Not Reportable 12/10/20 09:37 Toxic Granulation Not Reportable 12/10/20 09:37 Toxic Vacuolation Not Reportable 12/10/20 09:37 Dohle Bodies Not Reportable 12/10/20 09:37 Pelger-Huet Anomaly Not Reportable 12/10/20 09:37 Ester Rods Not Reportable 12/10/20 09:37 Platelet Estimate Consistent w auto 12/10/20 09:37 Clumped Platelets Not Reportable 12/10/20 09:37 Plt Clumps, EDTA Not Reportable 12/10/20 09:37 Large Platelets Not Reportable 12/10/20 09:37 Giant Platelets Not Reportable 12/10/20 09:37 Platelet Satelliting Not Reportable 12/10/20 09:37 Plt Morphology Comment Not Reportable 12/10/20 09:37 RBC Morphology Normal 12/10/20 09:37 Dimorphic RBCs Not Reportable 12/10/20 09:37 Polychromasia Not Reportable 12/10/20 09:37 Hypochromasia 1+ 12/10/20 09:37 Poikilocytosis Not Reportable 12/10/20 09:37 Anisocytosis Not Reportable 12/10/20 09:37 Microcytosis Not Reportable 12/10/20 09:37 Macrocytosis Not Reportable 12/10/20 09:37 Spherocytes Not Reportable 12/10/20 09:37 Pappenheimer Bodies Not Reportable 12/10/20 09:37 Sickle Cells Not Reportable 12/10/20 09:37 Target Cells Not Reportable 12/10/20 09:37 Tear Drop Cells Not Reportable 12/10/20 09:37 Ovalocytes Not Reportable 12/10/20 09:37 Stomatocytes Few 10/14/20 04:00 Helmet Cells Not Reportable 12/10/20 09:37 Burk-Deal Bodies Not Reportable 12/10/20 09:37 [place] Rings Not Reportable 12/10/20 09:37 Antoine Cells Not Reportable 12/10/20 09:37 Bite Cells Not Reportable 12/10/20 09:37 Crenated Cell Not Reportable 12/10/20 09:37 Elliptocytes Not Reportable 12/10/20 09:37 Acanthocytes (Spur) Not Reportable 12/10/20 09:37 Rouleaux Not Reportable 12/10/20 09:37 Hemoglobin C Crystals Not Reportable 12/10/20 09:37 Schistocytes Not Reportable 12/10/20 09:37 Malaria parasites Not Reportable 12/10/20 09:37 Sickle Cell Solubility See scanned result 10/04/20 Unknown Hemoglobin A See scanned result 10/04/20 Unknown Hemoglobin A2 See scanned result 10/04/20 Unknown Hemoglobin A2 Prime See scanned result 10/04/20 Unknown Hemoglobin C See scanned result 10/04/20 Unknown Hemoglobin D See scanned result 10/04/20 Unknown Hemoglobin E See scanned result 10/04/20 Unknown Hgb F Diffential Stain See scanned result 10/04/20 Unknown Hemoglobin F Quant See scanned result 10/04/20 Unknown Hemoglobin G See scanned result 10/04/20 Unknown Hemoglobin S See scanned result 10/04/20 Unknown Hemoglobin O-[place] See scanned result 10/04/20 Unknown Hemoglobin [place] See scanned result 10/04/20 Unknown Hemoglobin Analilia See scanned result 10/04/20 Unknown Variant Hemoglobin See scanned result 10/04/20 Unknown Abnorm Hgb IEF Confirm See scanned result 10/04/20 Unknown Hemoglobin Interpret See scanned result 10/04/20 Unknown Hemoglobinopathy Note See scanned result 10/04/20 Unknown Sharad Bodies Not Reportable 12/10/20 09:37 Hem Pathologist Commnt No 12/10/20 09:37 PT 13.6 Sec. (12.2-14.9) 10/21/20 13:54 INR 1.06 (0.87-1.13) 10/21/20 13:54 APTT 31.6 Sec. (24.2-36.6) 10/03/20 00:40 Fibrinogen 336 mg/dl (211-480) 10/04/20 10:00 D-Dimer 1974.47 ng/mlDDU (0-234) H 11/11/20 13:50 ABG pH 7.459 pH Units (7.350-7.450) H 10/26/20 10:30 POC ABG pCO2 20.7 mmHg (32.0-48.0) L 10/13/20 07:18 ABG pCO2 32.4 mm Hg 10/26/20 10:30 POC ABG pO2 137.9 mmHg (83-108) H 10/13/20 07:18 ABG pO2 112.2 mm Hg (80.0-90.0) H 10/26/20 10:30 POC ABG HCO3 14.8 10/13/20 07:18 ABG HCO3 22.5 mmol/L (20.0-26.0) 10/26/20 10:30 ABG O2 Saturation 98.2 % (95.0-99.0) 10/26/20 10:30 ABG O2 Content 18.5 (0.0-44) 10/26/20 10:30 POC ABG Base Excess -6.9 10/13/20 07:18 ABG Base Excess -0.6 mmol/L (-2.0-3.0) 10/26/20 10:30 ABG Hemoglobin 13.5 gm/dl (12.0-16.0) 10/26/20 10:30 ABG Oxyhemoglobin 98.3 (94-98) H 10/13/20 07:18 ABG Carboxyhemoglobin 1.3 % (0.0-5.0) 10/26/20 10:30 ABG Methemoglobin 0.5 % (0.0-1.5) 10/26/20 10:30 ABG Sodium 135.9 mmol/L (136.0-145.0) L 10/13/20 07:18 ABG Potassium 3.7 mmol/L (3.40-4.50) 10/13/20 07:18 ABG Chloride 111.0 mmol/L (98-107) H 10/13/20 07:18 ABG Glucose 109 mg/dL (65-95) H 10/13/20 07:18 VBG pH 6.949 (7.320-7.420) L* 10/02/20 Unknown Oxyhemoglobin 96.5 % (95.0-99.0) 10/26/20 10:30 Carboxyhemoglobin 0.3 (0.5-1.5) L 10/13/20 07:18 FiO2 25 % 10/26/20 10:30 Sodium 135 mmol/L (137-145) L 01/17/21 07:40 Potassium 4.6 mmol/L (3.6-5.0) 01/17/21 07:40 Chloride 99.0 mmol/L (98-107) 01/17/21 07:40 Carbon Dioxide 23 mmol/L (22-30) 01/17/21 07:40 Anion Gap 18 mmol/L 01/17/21 07:40 BUN 9 mg/dL (7-17) 01/17/21 07:40 Creatinine 0.6 mg/dL (0.6-1.2) 01/17/21 07:40 Estimated GFR > 60 ml/min 01/17/21 07:40 BUN/Creatinine Ratio 15 % 01/17/21 07:40 Glucose 85 mg/dL (65-100) 01/17/21 07:40 POC Glucose 99 mg/dL (70-105) 01/21/21 06:16 Random Insulin 43.2 uIU/mL (<=19.6) H 11/02/20 19:19 Proinsulin See scanned result 11/02/20 19:19 C-Peptide 6.23 ng/mL (0.80-3.85) H 11/02/20 19:19 Lactic Acid 1.90 mmol/L (0.7-2.0) 10/04/20 22:00 Uric Acid 7.5 mg/dL (3.5-7.6) 10/02/20 13:05 Calcium 9.5 mg/dL (8.4-10.2) 01/17/21 07:40 Ionized Calcium 4.4 mg/dL (4.8-5.6) L 10/07/20 21:00 Phosphorus 4.60 mg/dL (2.5-4.5) H 11/13/20 10:05 Magnesium 2.10 mg/dL (1.7-2.3) 11/13/20 10:05 Total Bilirubin 0.40 mg/dL (0.1-1.2) 12/22/20 11:03 AST 45 units/L (5-40) H 12/22/20 11:03 ALT 33 units/L (7-56) 12/22/20 11:03 Alkaline Phosphatase 100 units/L (35-129) 12/22/20 11:03 Lactate Dehydrogenase 769 units/L (91-180) H 10/02/20 13:05 C-Reactive Protein 0.70 mg/dL (0.00-1.30) 11/11/20 13:50 NT-Pro-B Natriuret Pep 2788 pg/mL (0-450) H 10/04/20 10:00 Total Protein 7.5 g/dL (6.3-8.2) 12/22/20 11:03 Albumin 3.8 g/dL (3.9-5) L 12/22/20 11:03 Albumin/Globulin Ratio 1.0 % 12/22/20 11:03 Procalcitonin < 0.05 ng/mL (<0.15) 12/27/20 20:16 Arterial Blood Glucose 109 mg/dL (65-95) H 10/13/20 07:18 Arterial Blood Ionized Calcium 4.6 mg/dL (4.6-5.3) 10/13/20 07:18 Urine Color Yellow (Yellow) 01/18/21 08:47 Urine Turbidity Slightly-cloudy (Clear) 01/18/21 08:47 Urine pH 8.0 (5.0-7.0) H 01/18/21 08:47 Ur Specific [place] 1.009 (1.003-1.030) 01/18/21 08:47 Urine Protein <15 mg/dl mg/dL (Negative) 01/18/21 08:47 Urine Glucose (UA) Neg mg/dL (Negative) 01/18/21 08:47 Urine Ketones Neg mg/dL (Negative) 01/18/21 08:47 Urine Blood Neg (Negative) 01/18/21 08:47 Urine Nitrite Neg (Negative) 01/18/21 08:47 Urine Bilirubin Neg (Negative) 01/18/21 08:47 Urine Urobilinogen < 2.0 mg/dL (<2.0) 01/18/21 08:47 Ur Leukocyte Esterase Neg (Negative) 01/18/21 08:47 Urine WBC (Auto) 1.0 /HPF (0.0-6.0) 01/18/21 08:47 Urine RBC (Auto) 1.0 /HPF (0.0-6.0) 01/18/21 08:47 U Epithel Cells (Auto) 1.0 /HPF (0-13.0) 01/18/21 08:47 Urine Bacteria (Auto) 1+ /HPF (Negative) 01/18/21 08:47 Urine WBC Clumps 3+ /HPF 11/11/20 13:50 Calcium Oxalate Crystal Few 11/11/20 13:50 Urine Mucus 3+ /HPF 12/27/20 22:25 Urine Yeast (Budding) 2+ /HPF 12/10/20 09:25 Vancomycin Trough 12.6 ug/mL (5.0-20.0) 10/21/20 13:54 Random Vancomycin 10.7 ug/mL (0-40.0) 10/16/20 13:09 Phenytoin 5.7 ug/mL (10.0-20.0) L 10/13/20 07:00 C. difficile Tox (PCR) Positive (Negative) 10/16/20 10:22 Coronavirus (PCR) Negative (Negative) 10/08/20 14:15 Blood Type O POSITIVE 10/02/20 12:50 Antibody Screen Negative 10/02/20 12:50 Crossmatch See Detail 10/02/20 12:50 - Diagnostic Impressions Diagnostic Impressions: Echocardiogram 10/03/20 13:42 Transthoracic Echocardiogram Indication: S/P Cardiac Arrest R/O Cardiomyopathy BP: 133/71 Conclusions *Global left ventricular systolic function is normal. *The estimated ejection fraction is 60-65%. *There is trace of mitral regurgitation. *The right 0heart chambers are both slightly dilated. *There is mild tricuspid regurgitation. *There is mild-moderate pulmonary hypertension. *The right ventricular systolic pressure is calculated at 44 mmHg. *The study quality is technically difficult. Findings Procedure Info: The study quality is technically difficult. The study is technically limited due to patient body habitus. The study was technically limited due to the patient's inability to lay in the left lateral decubitus position. Left Ventricle: The left ventricular chamber size is normal. There is no left ventricular hypertrophy. Global left ventricular systolic function is normal. The estimated ejection fraction is 60-65%. Left Atrium: The left atrial chamber size is normal. Right Ventricle: The right ventricle is slightly dilated. Right Atrium: The right atrium is mildly dilated. Aortic Valve: The aortic valve leaflets are mildly thickened. There is no evidence of aortic regurgitation. There is no evidence of aortic stenosis. Mitral Valve: The mitral valve leaflets are mildly thickened. There is trace of mitral regurgitation. There is no evidence of mitral stenosis. Tricuspid Valve: There is mild tricuspid regurgitation. The right ventricular systolic pressure is calculated at 44 mmHg. There is evidence of mild pulmonary hypertension. Pulmonic Valve: There is trace pulmonic regurgitation. Pericardium: There is no pericardial effusion. Aorta: There is no dilatation of the ascending aorta. There is no dilatation of the aortic root. Venous: The inferior vena cava is dilated. Measurements Chambers 2D Name Value Normal Range IVSd (2D) 1 cm (0.6 - 1.1) LVPWd (2D) 1.01 cm (0.6 - 1.1) LVIDd (2D) 4.58 cm (3.7 - 5.6) LVIDs (2D) 3.17 cm (2 - 3.8) LV FS (2D) 30.93 % - EF Teichholz (2D) 58.66 % - Ao root diameter (2D) 2.94 cm (2 - 3.7) Volumes/Mass Name Value Normal Range LA ESV SP 4CH (A/L) 72.82 ml - LA ESV SP 2CH (A/L) 66.86 ml - LA ESV BP (A/L) 74.49 ml - LA ESV SP 4CH (MOD) 71.03 ml - LA ESV SP 2CH (MOD) 64.3 ml - LV EDV SP 4CH (MOD) 98.82 ml - LV ESV SP 4CH (MOD) 24.8 ml - EF SP 4CH (MOD) 74.9 % - LV EDV SP 2CH (MOD) 86.1 ml - LV ESV SP 2CH (MOD) 36.93 ml - EF SP 2CH (MOD) 57.11 % - LV EDV BP 94.4 ml - LV ESV BP 32.66 ml - BP EF (MOD) 65.4 % - Diastolic/Systolic Function Name Value Normal Range MV E-wave Vmax 1.04 m/sec - MV deceleration time 160.46 msec - MV A-wave Vmax 0.92 m/sec - MV E:A ratio 1.14 ratio - Aortic Valve Name Value Normal Range AV Vmax 2.12 m/sec - AV VTI 22.37 cm - AV peak gradient 17.95 mmHg - AV mean gradient 7.29 mmHg - LVOT diameter 2.01 cm - LVOT Vmax 1.8 m/sec - LVOT VTI 27.17 cm - LVOT peak gradient 12.91 mmHg - LVOT mean gradient 6.83 mmHg - SV LVOT 86.42 ml - ANITA (continuity Vmax) 2.7 cm2 - ANITA (continuity VTI) 3.86 cm2 - Ascending Ao 3.18 cm - Tricuspid Valve Name Value Normal Range TV E-wave Vmax 0.88 m/sec - TR Vmax 3.01 m/sec - TR peak gradient 36.27 mmHg - RAP 8 mmHg - RVSP 44 mmHg - IVC diameter 2.65 cm (1.2 - 2.3) Pulmonic Valve/Qp:Qs Name Value Normal Range PV Vmax 1.22 m/sec - PV peak gradient 5.91 mmHg - RVOT Vmax 0.87 m/sec - RVOT VTI 13.32 cm - RVOT peak gradient 3 mmHg - PV acceleration time 110.37 msec - [place]/IV: Voiding Method Incontinent IV Catheter Type [Right Foot] INT / Saline Lock IV Catheter Type [Left Forearm Peripheral IV ] IV Catheter Type [Left Wrist] INT / Saline Lock IV Catheter Type [Right Hand] INT / Saline Lock IV Catheter Type [Right INT / Saline Lock Antecubital] IV Catheter Type [Right Upper Mid-line arm] IV Catheter Type [Left Triple Lumen Cath Internal Jugular] IV Catheter Type [Left Hand] Peripheral IV IV Catheter Type [Left Peripheral IV Antecubital] Active Medications - Current Medications Current Medications: Generic Name Dose Route Start Last Admin Trade Name Freq PRN Reason Stop Dose Admin Acetaminophen 650 mg 10/05/20 16:34 01/20/21 14:05 Acetaminophen 325 Mg/10.15 Ml Oral Liqd Unit Dose FEEDTUBE 650 mg Q6H PRN Administration Non Cardiac Pain or Temp>100.5 Albuterol 2.5 mg 11/05/20 13:03 11/06/20 13:04 Albuterol 2.5 Mg/3 Ml Nebu IH 2.5 mg Q4HRT PRN Administration Shortness Of Breath Alprazolam 0.25 mg 01/20/21 13:33 01/20/21 14:05 Alprazolam 0.25 Mg Tab PO 0.25 mg Q8H PRN Administration Anxiety Lipase/Protease/Amylase 1 each 10/05/20 11:09 Lipase 10,500/Protease 25,000/Amylase 43,750 (Units) Dr Barakat FEEDTUBE PRN PRN For Clogged Feeding Tube Enoxaparin Sodium 40 mg 10/22/20 10:00 01/21/21 09:39 Enoxaparin 40 Mg/0.4 Ml Inj SUB-Q 40 mg DAILY ERINN Administration Protocol Famotidine 20 mg 10/07/20 10:00 01/21/21 09:39 Famotidine 20 Mg Tab PO 20 mg BID ERINN Administration Hydralazine HCl 20 mg 10/07/20 11:49 10/17/20 07:20 Hydralazine 20 Mg/1 Ml Inj IV 20 mg Q6H PRN Administration SBP >170 Hydrophilic Ointment 1 applic 01/03/21 13:00 Lip Therapy Vaseline TP DIRECT PRN Dry Lips Dextrose 1,000 mls @ 30 mls/hr 01/03/21 12:00 01/20/21 20:04 D5w IV 75 mls/hr DIRECT ERINN Administration Metoprolol Tartrate 25 mg 01/08/21 22:00 01/21/21 09:39 Metoprolol Tartrate 25 Mg Tab PO 25 mg BID ERINN Administration Morphine Sulfate 2 mg 01/20/21 13:33 Morphine 2 Mg/1 Ml Inj IV Q4H PRN Pain, Moderate (4-6) Polyethylene Glycol 17 gm 12/27/20 15:07 12/28/20 10:05 Polyethylene Glycol 3350 17 Gm Powder PO 17 gm QDAY PRN Administration Constipation Simple Syrup 15 ml 10/05/20 11:09 Simple Syrup 15 Ml FEEDTUBE PRN PRN Hypoglycemia Simple Syrup 30 ml 10/05/20 11:09 Simple Syrup 15 Ml FEEDTUBE PRN PRN Hypoglycemia Sodium Bicarbonate 325 mg 10/05/20 11:09 12/16/20 08:19 Sodium Bicarbonate 325 Mg Tab FEEDTUBE 325 mg PRN PRN Administration For Clogged Feeding Tube Nutrition/Malnutrition Assess - Dietary Evaluation Nutrition/Malnutrition Findings: Nutrition Notes Start: 10/04/20 11:13 Freq: Status: Active Protocol: Document 01/18/21 12:18 FRANKOCARIN (Rec: 01/18/21 12:24 BREANNA [id number]) Nutrition Notes Initial or Follow up Reassessment Current Diagnosis Respiratory Failure Other Pertinent Diagnosis s/p cardiac arrest x 2, anoxic brain injury Current Diet TF - Jevity 1.2 at 60ml/hr Labs/Tests Na 135 (yesterday) Pertinent Medications reviewed Height 5 ft 8 in Weight 97 kg [place] Body Weight (kg) 63.63 BMI 32.5 Weight change and time frame Wt change noted Weight Status Obese Subjective/Other Information Pt continues to tolerate TF at goal rate. She is awaiting placement. Percent of energy/protein needs met: 83% energy 100% pro Burn Absent Trauma Absent #2 Nutrition Diagnosis Malnutrition Diagnosis Progress(for reassessment Continues documentation) #1 Nutrition Diagnosis Inadequate oral intake Diagnosis Progress(for reassessment Continues documentation) Is patient on ventilator? No Is Patient Ambulatory and/or Out of Bed No REE-([facility]-confined to bed) 6.108 Kcal/Kg value to use for calculation 16 Approximate Energy Requirements Using 1552 kcal/Kg Calculation Used for Recommendations [facility] Additional Notes Pro needs 0.8-1g/kg adjBW: 63- 79g/day Fluid needs 1ml/kcal Nutrition Intervention Nutrition Support: Continue Jevity 1.2 at 60ml/hr . Flush 100ml q4h. Kcal 1,728 Protein (gm) 80 Fluid (mL) 1,162 Goal #1 TF tolerance Goal #2 TF to meet at least 75% energy and pro needs Follow-Up By: 01/25/21 Additional Comments F/U: stable TF, wt
[2021-01-22] MEDS: DEXTROSE 5% IN WATER 1,000 ML IV SCH (04:32)
[2021-01-22] MEDS: ENOXAPARIN 40 MG/0.4 ML INJ SUB-Q SCH (10:37)
[2021-01-22] MEDS: METOPROLOL TARTRATE 25 MG TAB PO SCH ×2 (10:38→22:56)
[2021-01-22] MEDS: FAMOTIDINE 20 MG TAB PO SCH ×2 (10:38→22:57)
[2021-01-22] MEDS: ACETAMINOPHEN 325 MG/10.15 ML ORAL LIQD UNIT DOSE FEEDTUBE PRN (22:55)
--- NOTE | 2021-01-23 09:52 | Progress Note ---
Assessment and Plan Assessment and plan: --DIC (disseminated intravascular coagulation) vs HELLP syndrome Resolved --Possible Eclampsia/HELLP Syndrome Resolved --s/p Cardiac arrest x2 on admission and on 10/07 ACLS protocol followed by revival Echo showed preserved Ef --Anoxic brain injury, Developed following cardiac arrest, continue supportive care --Shock-resolved now awaiting placement s/p pressor support --ADOLPH-resolved Stable --Sepsis 2/2 UTI s/p cefepime to cover possible pseudomonas as sputum is also growing GN rods till 01/04/21 Previous urine culture grew pansensitive ecoli Blood cultures from 12/27-no growth --Hypernatremia, resolved, cont free water with TF --DVT prophylaxis Patient presented with DIC No anticoagulants Overall prognosis extremely poor. Daily clinical course 10/02/21 11:30: Pt brought to L&D triage for evaluation of possible labor. Pt accompanied by her spouse. Pt spouse poor historian; unable to obtain history- allergies at this time. Pt taken from registration to triage area via WC. Pt unresponsive, actively seizing with snorous respirations. top inventory control executive, Kassy, called and requesting assistance. 11:35: Multiple staff at bedside. Pt 02 sat 67% on nonrebreather, unable to read BP at this time. Yifan Theodore CRNA, at bedside for intubation and assistance with IV insertion. INT attempt by multiple RNs unsuccessful at this time. 11:42: Pt being bagged by KORIN, 02% 79%. No pulse palpated, compressions started at this time; bharati young called and Dr. Newberry preparing OR for emergent c/s. 11:44: Continued compressions on stretcher while transporting pt to OR 1. Pt being bagged with jaw thrust manuever in place by KORIN Stringer student. 11:45: Arrival to OR 1. Dr. Newberry and Dr. Portillo present for emergent c/s. Code team arrived for continued care. patient revived and c/s done Patient has been bleeding from C/s site followed by supracervical hysterectomy for severe bleeding Patient transfused multiple units of PRBC, Patient in DIC. Transferred to the ICU 10/03. Patient seen and examined at bedside this morning. Patient is nonresponsive and mechanically ventilated. On pressors. Labs reviewed-has leukocytosis, anemia, thrombocytopenia, ADOLPH and lactic acidosis. Started on IV antibiotics to cover possible sepsis secondary to DIC. Hematology oncology recommendations appreciated-needs additional cryoprecipitate and FFP. Monitor D-dimer, fibrinogen and frequent labs. Nephrology consulted for lactic acidosis and ADOLPH. 10/04. Remains mechanically ventilated. Kevin antibiotics. Labs shows improved acidosis - lactic acid 3.5. Hb drop noted. Getting transfused 2 units PRBCs. Platelet count is ~40k. Continue to monitor labs closely. Critical care team on board. 10/05; xray reviewed, concerning for multifocal infilrate, likely underlying Pn eumonia, will add ID consult to assist with management of this critically ill patient, start tube feed, closely monitor renal system 10/06: Resumed care, remains on mechanical ventilation. No active bleeding, H&H stable. Continue to monitor CBC and BMP. Continue IV antibiotic for underlying pneumonia. Follow critical care and ID recommendation. 10/07: Remains on mechanical ventilation. No active bleeding, H&H stable. Critical care following, wean off ventilation as tolerated. 10/08: Patient had another cardiac arrest last night. Remains on mechanical ventilation, update family. Continue supportive care -poor prognosis 10/09: Called patient mother and discussed about patient care and management. Answered all question to best of my knowledge and family satisfaction. Patient remains on mechanical ventilation, cardiac arrest x2 so far. Critically sick, poor prognosis 10/10: remains on mechanical ventilation. h/h stable, no active bleeding. monitor CBC/BMP 10/11: WBC trended up with diarrhea, started on vancomycin po. remains on MV, off pressor, tolerating TF 10/12: remains on MV, off pressor, tolerating TF. called family for update but unable to reach, could not leave message as it was full. cont supportive care, wean off vent as tolerated. 10/13/2020; patient is on mechanical ventilation, tolerating tube feeding. Patient has labored breathing. Neuro was consulted and recommend MRI. Patient is on Precedex. Rectal tube in place. 10/14/2020; patient is on mechanical ventilation, Precedex. Patient had fever and blood culture ordered. Patient is on IV vancomycin per ID recommendation. Neuro consulted and recommend MRI. Continue to monitor. Prognosis is guarded. 10/15/2020; patient is on mechanical ventilation, Precedex. Patient had fever and blood culture ordered. Patient is on IV vancomycin per ID recommendation. Neuro consulted and recommend MRI. Continue to monitor. Prognosis is guarded. 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 12/06/20; anoxic brain injury. Awaiting placement. 12/07/2020; anoxic brain injury, awaiting placement. 12/09/2020; anoxic brain injury, awaiting placement. 12/10/2020; patient had episodes of fever overnight. CBC, BMP, blood culture, UA and chest x-ray ordered, will follow and manage accordingly. Urinalysis is suggestive of UTI and I put the patient on ceftriaxone, order urine culture. Chest x-ray is normal. 12/11/2020; patient is on ceftriaxone day 2 for UTI. We will continue to follow urine culture. 12/12/2020. Day #3 of Rocephin for UTI. We will continue for 2 more days while she is here. Present UTI. 12/13/2020. Day #4 of Rocephin for UTI. Patient remains on 50% with tracheos serafin. Remains unresponsive with evidence of anoxic encephalopathy unable to make needs known. 12/14/2020. Day #5 of Rocephin for UTI completed today. Remains encephalopathic unable to make needs known. Remains on 50% unable to decrease oxygen via tracheostomy. Overall prognosis remains extremely poor. 3: Continue to monitor. Stop and monitor antibiotics at this time. Continue to wean oxygen as tolerated. Wean oxygen as tolerated. Case management working on placement. 12/16: Continue supportive care aspiration precautions. Awaiting placement discussion. Monitor fever curve. Prognosis remains poor no evidence of neurological recovery as of today 12/17: Continue supportive care, check labs and chest xray. Still monitor off antibiotics. Monitor Sodium level 12/18: Patient remains with intermittent low grade fever, reviewed EEG from September again, consistent for Ischemic Hypoxic Encephalopathy, patient with decorticating posturing type presentation. Will discuss with assembler semiconductor to op timize diet so we can discontinue D5. CXR with no abnormality. Discussed extensively with the nursing staff at bedside CXR IMPRESSION: 1. No acute findings. 12/19: No clinical change 12/20: No clinical change, now off abx, monitor, discussed her medications with our pharmacist I believe that her posture and rigidity is likely from underlying anoxic encephalopathy. Continue to monitor and await placement decision. Continue aggressive suctioning. Plan discussed in detail with the nursing staff 12/21: Continue supportive care. Will give 500 cc bolus of fluid today to replace insensible losses. Tachycardia appears to be improving. Blood pressure precludes adjusting cardiac meds. Still awaiting placement from case management. Plan discussed in detail with the nursing staff 12/22. Continue support supportive care. Tracheostomy and PEG in place. Remains nonresponsive. Awaiting placement. 12/23. Continue support supportive care. Tracheostomy and PEG in place. Remains nonresponsive. Awaiting placement. Remains tachycardic. Decrease dose of lasix. Will try low dose metoprolol. Monitor BP closely 12/24. Continue support supportive care. Tracheostomy and PEG in place. Remains nonresponsive. Awaiting placement. Heart rate slightly better. Continue to monitor BP closely 12/25. Continue support supportive care. Tracheostomy and PEG in place. Remains nonresponsive. Awaiting placement. 12/26. Continue support supportive care. Tracheostomy and PEG in place. Remains nonresponsive. Awaiting placement 12/27. Continue support supportive care. Tracheostomy and PEG in place. Remains nonresponsive. Awaiting placement 12/28. Had fever yesterday. Blood culture drawn. UA - UTI - started on antibiotics. Now tracheal aspirate is growing GN rods. 12/29: Continue IV antibiotics, continue supportive care. Since admission patient has shown minimal or no chance of neurological recovery. Need 24/7 assistance. Currently on trach and PEG, nonverbal. Waiting on SNF placement. Discussed with nurse case manager today. 12/30: Continue IV antibiotics for UTI, continue supportive care. Pending placement 12/31: continue supportive care. continue supportive care. Pending placement 01/01: continue supportive care. Pending placement. cont Iv abx for UTI till 01/04 01/02: Continue supportive care, pending placement. Sodium level slightly elevated, will start hypotonic fluid. Continue antibiotics till 01/04 01/03; cont hypotonic fluid, increase free water with TF for hypernatremia, follow BMP. cont supportive care. pending placement. cont cefepime. recx blood 01/04: resolved hyponatremia, cont supportive care, pending placement. Last day of supplement today. 01/05: Continue supportive care, pending placement. Monitor H&H and fever curve off antibiotic. 01/06; monitor off abx, suction as needed, Continue supportive care, pending placement. 01/07: Discharge pending on placement, vitals stable. Continue supportive care 01/08: Discharge pending on placement, vitals stable. Continue supportive care. stop lasix, increase metoprolol to 25mg BID for ST. 01/09 patient resting with eyes closed. Opens eyes to tactile stimulus, has a blink reflex, does not follow simple commands, has a T-collar / G-tube Lab results reviewed, low-grade fever, 01/10 Eyes open, does not follow simple commands, no acute events overnight 01/11 no acute events overnight Waiting for placement 01/12 No acute events overnight. Patient awaiting for placement 01/13. No new issues. Awaiting placement 01/14. No new issues. Awaiting placement. 01/15. No new issues. Awaiting placement. 01/16. No new issues. Patient remain stable. Awaiting placement. Check maintenance labs. 01/17. Routine maintenance labs were ordered and are still pending. Await placement. 01/18. Patient with low-grade fever past 24-48 hrs. WBC within normal limits. Check chest x-ray, urinalysis and consider blood cultures. Continue tracheostomy care, secretion control and airway management. Patient currently with PEG and tube feedings at 60 cc an hour. Nutritional support and aspiration precautions. 01/19. Temperature 100.7 overnight. Continue to monitor closely. Continue tracheostomy care, secretion control and airway management. Patient currently with PEG and tube feedings at 60 cc an hour. Nutritional support and aspiration precautions. 01/20. Continue to monitor closely. Continue tracheostomy care, secretion control and airway management. Patient currently with PEG and tube feedings at 60 cc an hour. Nutritional support and aspiration precautions. 01/21. Afebrile overnight. Continue to monitor closely. Continue tracheostomy care, secretion control and airway management. Patient currently with PEG and tube feedings at 60 cc an hour. Nutritional support and aspiration precautions. 01/22. Continue to monitor closely. Continue tracheostomy care, secretion control and airway management. Patient currently with PEG and tube feedings at 60 cc an hour. Nutritional support and aspiration precautions. 01/23. Continue tracheostomy care, secretion control and airway management. Patient currently with PEG and tube feedings at 60 cc an hour. Nutritional support and aspiration precautions. Will get routine labs tomorrow. History Interval history: Trach in place Nonverbal Not responsive to calls Hospitalist Physical - Physical exam Narrative exam: VITAL SIGNS: Reviewed. GENERAL: Trach in place HEAD: No signs of head trauma. EYES: Pupils are equal. NECK: No adenopathy, no JVD. CHEST: Diminished breath sounds CARDIAC: normal S1 and S2, without murmurs, gallops, or rubs. ABDOMEN: Soft, non tender and non distended. No rebound or guarding, and no masses palpated. Bowel Sounds normal MUSCULOSKELETAL: No edema NEUROLOGIC EXAM: Not responsive SKIN: No obvious lesions - Constitutional Vitals: Temp Pulse Resp BP Pulse Ox 99.7 F H 122 H 18 146/89 97 01/22/21 17:18 01/22/21 22:56 01/22/21 23:55 01/22/21 22:56 01/23/21 08:52 General appearance: Present: other (Persistent vegetative state) HEART Score - HEART Score Age: < 45 Risk factors: 1-2 risk factors - Critical Actions Critical Actions: >7 pts:50-65% risk of adverse cardiac event. Early invasive measures Results - Labs CBC & Chem 7: 01/17/21 07:40 01/17/21 07:40 Labs: Laboratory Last Values WBC 8.6 K/mm3 (4.5-11.0) 01/17/21 07:40 RBC 5.23 M/mm3 (3.65-5.03) H 01/17/21 07:40 Hgb 12.3 gm/dl (10.1-14.3) 01/17/21 07:40 Hgb Comment See scanned result 10/04/20 Unknown Hct 39.4 % (30.3-42.9) 01/17/21 07:40 MCV 75 fl (79-97) L 01/17/21 07:40 MCH 24 pg (28-32) L 01/17/21 07:40 MCHC 31 % (30-34) 01/17/21 07:40 RDW 14.1 % (13.2-15.2) 01/17/21 07:40 Plt Count 293 K/mm3 (140-440) 01/17/21 07:40 Lymph % (Auto) 23.8 % (13.4-35.0) 01/17/21 07:40 [place] % (Auto) 8.2 % (0.0-7.3) H 01/17/21 07:40 Eos % (Auto) 1.2 % (0.0-4.3) 01/17/21 07:40 Baso % (Auto) 0.3 % (0.0-1.8) 01/17/21 07:40 Lymph # (Auto) 2.0 K/mm3 (1.2-5.4) 01/17/21 07:40 [place] # (Auto) 0.7 K/mm3 (0.0-0.8) 01/17/21 07:40 Eos # (Auto) 0.1 K/mm3 (0.0-0.4) 01/17/21 07:40 Baso # (Auto) 0.0 K/mm3 (0.0-0.1) 01/17/21 07:40 Add Manual Diff Complete 12/10/20 09:37 Total Counted 100 12/10/20 09:37 Seg Neutrophils % 66.5 % (40.0-70.0) 01/17/21 07:40 Seg Neuts % (Manual) 81.0 % (40.0-70.0) H 12/10/20 09:37 Band Neutrophils % 2.0 % 10/15/20 05:50 Lymphocytes % (Manual) 17.0 % (13.4-35.0) 12/10/20 09:37 Reactive Lymphs % (Man) 1.0 % 10/02/20 12:18 Monocytes % (Manual) 2.0 % (0.0-7.3) 12/10/20 09:37 Eosinophils % (Manual) 1.0 % (0.0-4.3) 10/29/20 07:56 Myelocytes % 2.0 % 10/02/20 13:05 Metamyelocytes % 1.0 % 10/14/20 04:00 Nucleated RBC % Not Reportable 12/10/20 09:37 Seg Neutrophils # 5.7 K/mm3 (1.8-7.7) 01/17/21 07:40 Seg Neutrophils # Man 10.1 K/mm3 (1.8-7.7) H 12/10/20 09:37 Band Neutrophils # 0.0 K/mm3 12/10/20 09:37 Lymphocytes # (Manual) 2.1 K/mm3 (1.2-5.4) 12/10/20 09:37 Abs React Lymphs (Man) 0.0 K/mm3 12/10/20 09:37 Monocytes # (Manual) 0.3 K/mm3 (0.0-0.8) 12/10/20 09:37 Eosinophils # (Manual) 0.0 K/mm3 (0.0-0.4) 12/10/20 09:37 Basophils # (Manual) 0.0 K/mm3 (0.0-0.1) 12/10/20 09:37 Metamyelocytes # 0.0 K/mm3 12/10/20 09:37 Myelocytes # 0.0 K/mm3 12/10/20 09:37 Promyelocytes # 0.0 K/mm3 12/10/20 09:37 Blast Cells # 0.0 K/mm3 12/10/20 09:37 WBC Morphology Not Reportable 12/10/20 09:37 Hypersegmented Neuts Not Reportable 12/10/20 09:37 Hyposegmented Neuts Not Reportable 12/10/20 09:37 Hypogranular Neuts Not Reportable 12/10/20 09:37 Smudge Cells Not Reportable 12/10/20 09:37 Toxic Granulation Not Reportable 12/10/20 09:37 Toxic Vacuolation Not Reportable 12/10/20 09:37 Dohle Bodies Not Reportable 12/10/20 09:37 Pelger-Huet Anomaly Not Reportable 12/10/20 09:37 Ester Rods Not Reportable 12/10/20 09:37 Platelet Estimate Consistent w auto 12/10/20 09:37 Clumped Platelets Not Reportable 12/10/20 09:37 Plt Clumps, EDTA Not Reportable 12/10/20 09:37 Large Platelets Not Reportable 12/10/20 09:37 Giant Platelets Not Reportable 12/10/20 09:37 Platelet Satelliting Not Reportable 12/10/20 09:37 Plt Morphology Comment Not Reportable 12/10/20 09:37 RBC Morphology Normal 12/10/20 09:37 Dimorphic RBCs Not Reportable 12/10/20 09:37 Polychromasia Not Reportable 12/10/20 09:37 Hypochromasia 1+ 12/10/20 09:37 Poikilocytosis Not Reportable 12/10/20 09:37 Anisocytosis Not Reportable 12/10/20 09:37 Microcytosis Not Reportable 12/10/20 09:37 Macrocytosis Not Reportable 12/10/20 09:37 Spherocytes Not Reportable 12/10/20 09:37 Pappenheimer Bodies Not Reportable 12/10/20 09:37 Sickle Cells Not Reportable 12/10/20 09:37 Target Cells Not Reportable 12/10/20 09:37 Tear Drop Cells Not Reportable 12/10/20 09:37 Ovalocytes Not Reportable 12/10/20 09:37 Stomatocytes Few 10/14/20 04:00 Helmet Cells Not Reportable 12/10/20 09:37 [place] Bodies Not Reportable 12/10/20 09:37 Medon Rings Not Reportable 12/10/20 09:37 Antoine Cells Not Reportable 12/10/20 09:37 Bite Cells Not Reportable 12/10/20 09:37 Crenated Cell Not Reportable 12/10/20 09:37 Elliptocytes Not Reportable 12/10/20 09:37 Acanthocytes (Spur) Not Reportable 12/10/20 09:37 Rouleaux Not Reportable 12/10/20 09:37 Hemoglobin C Crystals Not Reportable 12/10/20 09:37 Schistocytes Not Reportable 12/10/20 09:37 Malaria parasites Not Reportable 12/10/20 09:37 Sickle Cell Solubility See scanned result 10/04/20 Unknown Hemoglobin A See scanned result 10/04/20 Unknown Hemoglobin A2 See scanned result 10/04/20 Unknown Hemoglobin A2 Prime See scanned result 10/04/20 Unknown Hemoglobin C See scanned result 10/04/20 Unknown Hemoglobin D See scanned result 10/04/20 Unknown Hemoglobin E See scanned result 10/04/20 Unknown Hgb F Diffential Stain See scanned result 10/04/20 Unknown Hemoglobin F Quant See scanned result 10/04/20 Unknown Hemoglobin G See scanned result 10/04/20 Unknown Hemoglobin S See scanned result 10/04/20 Unknown Hemoglobin O-Mcdermott See scanned result 10/04/20 Unknown Hemoglobin [place] See scanned result 10/04/20 Unknown Hemoglobin Analilia See scanned result 10/04/20 Unknown Variant Hemoglobin See scanned result 10/04/20 Unknown Abnorm Hgb IEF Confirm See scanned result 10/04/20 Unknown Hemoglobin Interpret See scanned result 10/04/20 Unknown Hemoglobinopathy Note See scanned result 10/04/20 Unknown Sharad Bodies Not Reportable 12/10/20 09:37 Hem Pathologist Commnt No 12/10/20 09:37 PT 13.6 Sec. (12.2-14.9) 10/21/20 13:54 INR 1.06 (0.87-1.13) 10/21/20 13:54 APTT 31.6 Sec. (24.2-36.6) 10/03/20 00:40 Fibrinogen 336 mg/dl (211-480) 10/04/20 10:00 D-Dimer 1974.47 ng/mlDDU (0-234) H 11/11/20 13:50 ABG pH 7.459 pH Units (7.350-7.450) H 10/26/20 10:30 POC ABG pCO2 20.7 mmHg (32.0-48.0) L 10/13/20 07:18 ABG pCO2 32.4 mm Hg 10/26/20 10:30 POC ABG pO2 137.9 mmHg (83-108) H 10/13/20 07:18 ABG pO2 112.2 mm Hg (80.0-90.0) H 10/26/20 10:30 POC ABG HCO3 14.8 10/13/20 07:18 ABG HCO3 22.5 mmol/L (20.0-26.0) 10/26/20 10:30 ABG O2 Saturation 98.2 % (95.0-99.0) 10/26/20 10:30 ABG O2 Content 18.5 (0.0-44) 10/26/20 10:30 POC ABG Base Excess -6.9 10/13/20 07:18 ABG Base Excess -0.6 mmol/L (-2.0-3.0) 10/26/20 10:30 ABG Hemoglobin 13.5 gm/dl (12.0-16.0) 10/26/20 10:30 ABG Oxyhemoglobin 98.3 (94-98) H 10/13/20 07:18 ABG Carboxyhemoglobin 1.3 % (0.0-5.0) 10/26/20 10:30 ABG Methemoglobin 0.5 % (0.0-1.5) 10/26/20 10:30 ABG Sodium 135.9 mmol/L (136.0-145.0) L 10/13/20 07:18 ABG Potassium 3.7 mmol/L (3.40-4.50) 10/13/20 07:18 ABG Chloride 111.0 mmol/L (98-107) H 10/13/20 07:18 ABG Glucose 109 mg/dL (65-95) H 10/13/20 07:18 VBG pH 6.949 (7.320-7.420) L* 10/02/20 Unknown Oxyhemoglobin 96.5 % (95.0-99.0) 10/26/20 10:30 Carboxyhemoglobin 0.3 (0.5-1.5) L 10/13/20 07:18 FiO2 25 % 10/26/20 10:30 Sodium 135 mmol/L (137-145) L 01/17/21 07:40 Potassium 4.6 mmol/L (3.6-5.0) 01/17/21 07:40 Chloride 99.0 mmol/L (98-107) 01/17/21 07:40 Carbon Dioxide 23 mmol/L (22-30) 01/17/21 07:40 Anion Gap 18 mmol/L 01/17/21 07:40 BUN 9 mg/dL (7-17) 01/17/21 07:40 Creatinine 0.6 mg/dL (0.6-1.2) 01/17/21 07:40 Estimated GFR > 60 ml/min 01/17/21 07:40 BUN/Creatinine Ratio 15 % 01/17/21 07:40 Glucose 85 mg/dL (65-100) 01/17/21 07:40 POC Glucose 106 mg/dL (70-105) H 01/23/21 06:21 Random Insulin 43.2 uIU/mL (<=19.6) H 11/02/20 19:19 Proinsulin See scanned result 11/02/20 19:19 C-Peptide 6.23 ng/mL (0.80-3.85) H 11/02/20 19:19 Lactic Acid 1.90 mmol/L (0.7-2.0) 10/04/20 22:00 Uric Acid 7.5 mg/dL (3.5-7.6) 10/02/20 13:05 Calcium 9.5 mg/dL (8.4-10.2) 01/17/21 07:40 Ionized Calcium 4.4 mg/dL (4.8-5.6) L 10/07/20 21:00 Phosphorus 4.60 mg/dL (2.5-4.5) H 11/13/20 10:05 Magnesium 2.10 mg/dL (1.7-2.3) 11/13/20 10:05 Total Bilirubin 0.40 mg/dL (0.1-1.2) 12/22/20 11:03 AST 45 units/L (5-40) H 12/22/20 11:03 ALT 33 units/L (7-56) 12/22/20 11:03 Alkaline Phosphatase 100 units/L (35-129) 12/22/20 11:03 Lactate Dehydrogenase 769 units/L (91-180) H 10/02/20 13:05 C-Reactive Protein 0.70 mg/dL (0.00-1.30) 11/11/20 13:50 NT-Pro-B Natriuret Pep 2788 pg/mL (0-450) H 10/04/20 10:00 Total Protein 7.5 g/dL (6.3-8.2) 12/22/20 11:03 Albumin 3.8 g/dL (3.9-5) L 12/22/20 11:03 Albumin/Globulin Ratio 1.0 % 12/22/20 11:03 Procalcitonin < 0.05 ng/mL (<0.15) 12/27/20 20:16 Arterial Blood Glucose 109 mg/dL (65-95) H 10/13/20 07:18 Arterial Blood Ionized Calcium 4.6 mg/dL (4.6-5.3) 10/13/20 07:18 Urine Color Yellow (Yellow) 01/18/21 08:47 Urine Turbidity Slightly-cloudy (Clear) 01/18/21 08:47 Urine pH 8.0 (5.0-7.0) H 01/18/21 08:47 Ur Specific [place] 1.009 (1.003-1.030) 01/18/21 08:47 Urine Protein <15 mg/dl mg/dL (Negative) 01/18/21 08:47 Urine Glucose (UA) Neg mg/dL (Negative) 01/18/21 08:47 Urine Ketones Neg mg/dL (Negative) 01/18/21 08:47 Urine Blood Neg (Negative) 01/18/21 08:47 Urine Nitrite Neg (Negative) 01/18/21 08:47 Urine Bilirubin Neg (Negative) 01/18/21 08:47 Urine Urobilinogen < 2.0 mg/dL (<2.0) 01/18/21 08:47 Ur Leukocyte Esterase Neg (Negative) 01/18/21 08:47 Urine WBC (Auto) 1.0 /HPF (0.0-6.0) 01/18/21 08:47 Urine RBC (Auto) 1.0 /HPF (0.0-6.0) 01/18/21 08:47 U Epithel Cells (Auto) 1.0 /HPF (0-13.0) 01/18/21 08:47 Urine Bacteria (Auto) 1+ /HPF (Negative) 01/18/21 08:47 Urine WBC Clumps 3+ /HPF 11/11/20 13:50 Calcium Oxalate Crystal Few 11/11/20 13:50 Urine Mucus 3+ /HPF 12/27/20 22:25 Urine Yeast (Budding) 2+ /HPF 12/10/20 09:25 Vancomycin Trough 12.6 ug/mL (5.0-20.0) 10/21/20 13:54 Random Vancomycin 10.7 ug/mL (0-40.0) 10/16/20 13:09 Phenytoin 5.7 ug/mL (10.0-20.0) L 10/13/20 07:00 C. difficile Tox (PCR) Positive (Negative) 10/16/20 10:22 Coronavirus (PCR) Negative (Negative) 10/08/20 14:15 Blood Type O POSITIVE 10/02/20 12:50 Antibody Screen Negative 10/02/20 12:50 Crossmatch See Detail 10/02/20 12:50 - Diagnostic Impressions Diagnostic Impressions: Echocardiogram 10/03/20 13:42 Transthoracic Echocardiogram Indication: S/P Cardiac Arrest R/O Cardiomyopathy BP: 133/71 Conclusions *Global left ventricular systolic function is normal. *The estimated ejection fraction is 60-65%. *There is trace of mitral regurgitation. *The right 0heart chambers are both slightly dilated. *There is mild tricuspid regurgitation. *There is mild-moderate pulmonary hypertension. *The right ventricular systolic pressure is calculated at 44 mmHg. *The study quality is technically difficult. Findings Procedure Info: The study quality is technically difficult. The study is technically limited due to patient body habitus. The study was technically limited due to the patient's inability to lay in the left lateral decubitus position. Left Ventricle: The left ventricular chamber size is normal. There is no left ventricular hypertrophy. Global left ventricular systolic function is normal. The estimated ejection fraction is 60-65%. Left Atrium: The left atrial chamber size is normal. Right Ventricle: The right ventricle is slightly dilated. Right Atrium: The right atrium is mildly dilated. Aortic Valve: The aortic valve leaflets are mildly thickened. There is no evidence of aortic regurgitation. There is no evidence of aortic stenosis. Mitral Valve: The mitral valve leaflets are mildly thickened. There is trace of mitral regurgitation. There is no evidence of mitral stenosis. Tricuspid Valve: There is mild tricuspid regurgitation. The right ventricular systolic pressure is calculated at 44 mmHg. There is evidence of mild pulmonary hypertension. Pulmonic Valve: There is trace pulmonic regurgitation. Pericardium: There is no pericardial effusion. Aorta: There is no dilatation of the ascending aorta. There is no dilatation of the aortic root. Venous: The inferior vena cava is dilated. Measurements Chambers 2D Name Value Normal Range IVSd (2D) 1 cm (0.6 - 1.1) LVPWd (2D) 1.01 cm (0.6 - 1.1) LVIDd (2D) 4.58 cm (3.7 - 5.6) LVIDs (2D) 3.17 cm (2 - 3.8) LV FS (2D) 30.93 % - EF Teichholz (2D) 58.66 % - Ao root diameter (2D) 2.94 cm (2 - 3.7) Volumes/Mass Name Value Normal Range LA ESV SP 4CH (A/L) 72.82 ml - LA ESV SP 2CH (A/L) 66.86 ml - LA ESV BP (A/L) 74.49 ml - LA ESV SP 4CH (MOD) 71.03 ml - LA ESV SP 2CH (MOD) 64.3 ml - LV EDV SP 4CH (MOD) 98.82 ml - LV ESV SP 4CH (MOD) 24.8 ml - EF SP 4CH (MOD) 74.9 % - LV EDV SP 2CH (MOD) 86.1 ml - LV ESV SP 2CH (MOD) 36.93 ml - EF SP 2CH (MOD) 57.11 % - LV EDV BP 94.4 ml - LV ESV BP 32.66 ml - BP EF (MOD) 65.4 % - Diastolic/Systolic Function Name Value Normal Range MV E-wave Vmax 1.04 m/sec - MV deceleration time 160.46 msec - MV A-wave Vmax 0.92 m/sec - MV E:A ratio 1.14 ratio - Aortic Valve Name Value Normal Range AV Vmax 2.12 m/sec - AV VTI 22.37 cm - AV peak gradient 17.95 mmHg - AV mean gradient 7.29 mmHg - LVOT diameter 2.01 cm - LVOT Vmax 1.8 m/sec - LVOT VTI 27.17 cm - LVOT peak gradient 12.91 mmHg - LVOT mean gradient 6.83 mmHg - SV LVOT 86.42 ml - ANITA (continuity Vmax) 2.7 cm2 - ANITA (continuity VTI) 3.86 cm2 - Ascending Ao 3.18 cm - Tricuspid Valve Name Value Normal Range TV E-wave Vmax 0.88 m/sec - TR Vmax 3.01 m/sec - TR peak gradient 36.27 mmHg - RAP 8 mmHg - RVSP 44 mmHg - IVC diameter 2.65 cm (1.2 - 2.3) Pulmonic Valve/Qp:Qs Name Value Normal Range PV Vmax 1.22 m/sec - PV peak gradient 5.91 mmHg - RVOT Vmax 0.87 m/sec - RVOT VTI 13.32 cm - RVOT peak gradient 3 mmHg - PV acceleration time 110.37 msec - [place]/IV: Voiding Method External Female Catheter IV Catheter Type [Right Foot] INT / Saline Lock IV Catheter Type [Left Forearm Peripheral IV ] IV Catheter Type [Left Wrist] INT / Saline Lock IV Catheter Type [Right Hand] INT / Saline Lock IV Catheter Type [Right INT / Saline Lock Antecubital] IV Catheter Type [Right Upper Mid-line arm] IV Catheter Type [Left Triple Lumen Cath Internal Jugular] IV Catheter Type [Left Hand] Peripheral IV IV Catheter Type [Left Peripheral IV Antecubital] Active Medications - Current Medications Current Medications: Generic Name Dose Route Start Last Admin Trade Name Freq PRN Reason Stop Dose Admin Acetaminophen 650 mg 10/05/20 16:34 01/22/21 22:55 Acetaminophen 325 Mg/10.15 Ml Oral Liqd Unit Dose FEEDTUBE 650 mg Q6H PRN Administration Non Cardiac Pain or Temp>100.5 Albuterol 2.5 mg 11/05/20 13:03 11/06/20 13:04 Albuterol 2.5 Mg/3 Ml Nebu IH 2.5 mg Q4HRT PRN Administration Shortness Of Breath Alprazolam 0.25 mg 01/20/21 13:33 01/20/21 14:05 Alprazolam 0.25 Mg Tab PO 0.25 mg Q8H PRN Administration Anxiety Lipase/Protease/Amylase 1 each 10/05/20 11:09 Lipase 10,500/Protease 25,000/Amylase 43,750 (Units) Dr Barakat FEEDTUBE PRN PRN For Clogged Feeding Tube Enoxaparin Sodium 40 mg 10/22/20 10:00 01/22/21 10:37 Enoxaparin 40 Mg/0.4 Ml Inj SUB-Q 40 mg DAILY ERINN Administration Protocol Famotidine 20 mg 10/07/20 10:00 01/22/21 22:57 Famotidine 20 Mg Tab PO 20 mg BID ERINN Administration Hydralazine HCl 20 mg 10/07/20 11:49 10/17/20 07:20 Hydralazine 20 Mg/1 Ml Inj IV 20 mg Q6H PRN Administration SBP >170 Hydrophilic Ointment 1 applic 01/03/21 13:00 Lip Therapy Vaseline TP DIRECT PRN Dry Lips Dextrose 1,000 mls @ 30 mls/hr 01/03/21 12:00 01/22/21 04:32 D5w IV 75 mls/hr DIRECT ERINN Administration Metoprolol Tartrate 25 mg 01/08/21 22:00 01/22/21 22:56 Metoprolol Tartrate 25 Mg Tab PO 25 mg BID ERINN Administration Morphine Sulfate 2 mg 01/20/21 13:33 Morphine 2 Mg/1 Ml Inj IV Q4H PRN Pain, Moderate (4-6) Polyethylene Glycol 17 gm 12/27/20 15:07 12/28/20 10:05 Polyethylene Glycol 3350 17 Gm Powder PO 17 gm QDAY PRN Administration Constipation Simple Syrup 15 ml 10/05/20 11:09 Simple Syrup 15 Ml FEEDTUBE PRN PRN Hypoglycemia Simple Syrup 30 ml 10/05/20 11:09 Simple Syrup 15 Ml FEEDTUBE PRN PRN Hypoglycemia Sodium Bicarbonate 325 mg 10/05/20 11:09 12/16/20 08:19 Sodium Bicarbonate 325 Mg Tab FEEDTUBE 325 mg PRN PRN Administration For Clogged Feeding Tube Nutrition/Malnutrition Assess - Dietary Evaluation Nutrition/Malnutrition Findings: Nutrition Notes Start: 10/04/20 11:13 Freq: Status: Active Protocol: Document 01/18/21 12:18 [facility] (Rec: 01/18/21 12:24 [facility] [id number]) Nutrition Notes Initial or Follow up Reassessment Current Diagnosis Respiratory Failure Other Pertinent Diagnosis s/p cardiac arrest x 2, anoxic brain injury Current Diet TF - Jevity 1.2 at 60ml/hr Labs/Tests Na 135 (yesterday) Pertinent Medications reviewed Height 5 ft 8 in Weight 97 kg [place] Body Weight (kg) 63.63 BMI 32.5 Weight change and time frame Wt change noted Weight Status Obese Subjective/Other Information Pt continues to tolerate TF at goal rate. She is awaiting placement. Percent of energy/protein needs met: 83% energy 100% pro Burn Absent Trauma Absent #2 Nutrition Diagnosis Malnutrition Diagnosis Progress(for reassessment Continues documentation) #1 Nutrition Diagnosis Inadequate oral intake Diagnosis Progress(for reassessment Continues documentation) Is patient on ventilator? No Is Patient Ambulatory and/or Out of Bed No REE-([facility]-confined to bed) 2076.108 Kcal/Kg value to use for calculation 16 Approximate Energy Requirements Using 1552 kcal/Kg Calculation Used for Recommendations [facility] Additional Notes Pro needs 0.8-1g/kg adjBW: 63- 79g/day Fluid needs 1ml/kcal Nutrition Intervention Nutrition Support: Continue Jevity 1.2 at 60ml/hr . Flush 100ml q4h. Kcal 1,728 Protein (gm) 80 Fluid (mL) 1,162 Goal #1 TF tolerance Goal #2 TF to meet at least 75% energy and pro needs Follow-Up By: 01/25/21 Additional Comments F/U: stable TF, wt
[2021-01-23] MEDS: ACETAMINOPHEN 325 MG/10.15 ML ORAL LIQD UNIT DOSE FEEDTUBE PRN (11:39)
[2021-01-23] MEDS: ENOXAPARIN 40 MG/0.4 ML INJ SUB-Q SCH (11:40)
[2021-01-23] MEDS: METOPROLOL TARTRATE 25 MG TAB PO SCH ×2 (11:40→22:10)
[2021-01-23] MEDS: FAMOTIDINE 20 MG TAB PO SCH ×2 (11:41→21:42)
[2021-01-23] MEDS: ALPRAZolam 0.25 MG TAB PO PRN (20:29)
[2021-01-23] MEDS: DEXTROSE 5% IN WATER 1,000 ML IV SCH (20:30)
[2021-01-24 04:50] LABS: Basophils % (Auto) 0.5 % (0.0-1.8); Eosinophils # (Auto) 0.1 K/mm3 (0.0-0.4); Eosinophils % (Auto) 1.6 % (0.0-4.3); Hematocrit 39.1 % (30.3-42.9); Hemoglobin 12.9 gm/dl (10.1-14.3); Lymphocytes % (Auto) 27.2 % (13.4-35.0); Mean Corpuscular HGB Conc 33 % (30-34); Mean Corpuscular Volume 75 fl (79-97); Monocytes # (Auto) 0.9 K/mm3 (0.0-0.8); Monocytes % (Auto) 11.8 % (0.0-7.3); Platelet Count 272 K/mm3 (140-440); Red Blood Count 5.23 M/mm3 (3.65-5.03)
[2021-01-24 05:12] LABS: Alanine Aminotransferase 21 units/L (7-56); Albumin 3.7 g/dL (3.9-5); Blood Urea Nitrogen 10 mg/dL (7-17); Calcium 9.5 mg/dL (8.4-10.2); Hemolysis Index 12
[2021-01-24 05:19] LABS: BUN/Creatinine Ratio 17
--- NOTE | 2021-01-24 09:12 | Progress Note ---
Assessment and Plan Assessment and plan: --DIC (disseminated intravascular coagulation) vs HELLP syndrome Resolved --Possible Eclampsia/HELLP Syndrome Resolved --s/p Cardiac arrest x2 on admission and on 10/07 ACLS protocol followed by revival Echo showed preserved Ef --Anoxic brain injury, Developed following cardiac arrest, continue supportive care --Shock-resolved now awaiting placement s/p pressor support --ADOLPH-resolved Stable --Sepsis 2/2 UTI s/p cefepime to cover possible pseudomonas as sputum is also growing GN rods till 01/04/21 Previous urine culture grew pansensitive ecoli Blood cultures from 12/27-no growth --Hypernatremia, resolved, cont free water with TF --DVT prophylaxis Patient presented with DIC No anticoagulants Overall prognosis extremely poor. Daily clinical course 10/02/21 11:30: Pt brought to L&D triage for evaluation of possible labor. Pt accompanied by her spouse. Pt spouse poor historian; unable to obtain history- allergies at this time. Pt taken from registration to triage area via WC. Pt unresponsive, actively seizing with snorous respirations. data center solutions architect, Kassy, called and requesting assistance. 11:35: Multiple staff at bedside. Pt 02 sat 67% on nonrebreather, unable to read BP at this time. Yifan Theodore CRNA, at bedside for intubation and assistance with IV insertion. INT attempt by multiple RNs unsuccessful at this time. 11:42: Pt being bagged by KORIN, 02% 79%. No pulse palpated, compressions started at this time; bharati young called and Dr. Newberry preparing OR for emergent c/s. 11:44: Continued compressions on stretcher while transporting pt to OR 1. Pt being bagged with jaw thrust manuever in place by KORIN Stringer student. 11:45: Arrival to OR 1. Dr. Newberry and Dr. Portillo present for emergent c/s. Code team arrived for continued care. patient revived and c/s done Patient has been bleeding from C/s site followed by supracervical hysterectomy for severe bleeding Patient transfused multiple units of PRBC, Patient in DIC. Transferred to the ICU 10/03. Patient seen and examined at bedside this morning. Patient is nonresponsive and mechanically ventilated. On pressors. Labs reviewed-has leukocytosis, anemia, thrombocytopenia, ADOLPH and lactic acidosis. Started on IV antibiotics to cover possible sepsis secondary to DIC. Hematology oncology recommendations appreciated-needs additional cryoprecipitate and FFP. Monitor D-dimer, fibrinogen and frequent labs. Nephrology consulted for lactic acidosis and ADOLPH. 10/04. Remains mechanically ventilated. Kevin antibiotics. Labs shows improved acidosis - lactic acid 3.5. Hb drop noted. Getting transfused 2 units PRBCs. Platelet count is ~40k. Continue to monitor labs closely. Critical care team on board. 10/05; xray reviewed, concerning for multifocal infilrate, likely underlying Pn eumonia, will add ID consult to assist with management of this critically ill patient, start tube feed, closely monitor renal system 10/06: Resumed care, remains on mechanical ventilation. No active bleeding, H&H stable. Continue to monitor CBC and BMP. Continue IV antibiotic for underlying pneumonia. Follow critical care and ID recommendation. 10/07: Remains on mechanical ventilation. No active bleeding, H&H stable. Critical care following, wean off ventilation as tolerated. 10/08: Patient had another cardiac arrest last night. Remains on mechanical ventilation, update family. Continue supportive care -poor prognosis 10/09: Called patient mother and discussed about patient care and management. Answered all question to best of my knowledge and family satisfaction. Patient remains on mechanical ventilation, cardiac arrest x2 so far. Critically sick, poor prognosis 10/10: remains on mechanical ventilation. h/h stable, no active bleeding. monitor CBC/BMP 10/11: WBC trended up with diarrhea, started on vancomycin po. remains on MV, off pressor, tolerating TF 10/12: remains on MV, off pressor, tolerating TF. called family for update but unable to reach, could not leave message as it was full. cont supportive care, wean off vent as tolerated. 10/13/2020; patient is on mechanical ventilation, tolerating tube feeding. Patient has labored breathing. Neuro was consulted and recommend MRI. Patient is on Precedex. Rectal tube in place. 10/14/2020; patient is on mechanical ventilation, Precedex. Patient had fever and blood culture ordered. Patient is on IV vancomycin per ID recommendation. Neuro consulted and recommend MRI. Continue to monitor. Prognosis is guarded. 10/15/2020; patient is on mechanical ventilation, Precedex. Patient had fever and blood culture ordered. Patient is on IV vancomycin per ID recommendation. Neuro consulted and recommend MRI. Continue to monitor. Prognosis is guarded. 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 12/06/20; anoxic brain injury. Awaiting placement. 12/07/2020; anoxic brain injury, awaiting placement. 12/09/2020; anoxic brain injury, awaiting placement. 12/10/2020; patient had episodes of fever overnight. CBC, BMP, blood culture, UA and chest x-ray ordered, will follow and manage accordingly. Urinalysis is suggestive of UTI and I put the patient on ceftriaxone, order urine culture. Chest x-ray is normal. 12/11/2020; patient is on ceftriaxone day 2 for UTI. We will continue to follow urine culture. 12/12/2020. Day #3 of Rocephin for UTI. We will continue for 2 more days while she is here. Present UTI. 12/13/2020. Day #4 of Rocephin for UTI. Patient remains on 50% with tracheos serafin. Remains unresponsive with evidence of anoxic encephalopathy unable to make needs known. 12/14/2020. Day #5 of Rocephin for UTI completed today. Remains encephalopathic unable to make needs known. Remains on 50% unable to decrease oxygen via tracheostomy. Overall prognosis remains extremely poor. 3: Continue to monitor. Stop and monitor antibiotics at this time. Continue to wean oxygen as tolerated. Wean oxygen as tolerated. Case management working on placement. 12/16: Continue supportive care aspiration precautions. Awaiting placement discussion. Monitor fever curve. Prognosis remains poor no evidence of neurological recovery as of today 12/17: Continue supportive care, check labs and chest xray. Still monitor off antibiotics. Monitor Sodium level 12/18: Patient remains with intermittent low grade fever, reviewed EEG from September again, consistent for Ischemic Hypoxic Encephalopathy, patient with decorticating posturing type presentation. Will discuss with furnace erector to op timize diet so we can discontinue D5. CXR with no abnormality. Discussed extensively with the nursing staff at bedside CXR IMPRESSION: 1. No acute findings. 12/19: No clinical change 12/20: No clinical change, now off abx, monitor, discussed her medications with our pharmacist I believe that her posture and rigidity is likely from underlying anoxic encephalopathy. Continue to monitor and await placement decision. Continue aggressive suctioning. Plan discussed in detail with the nursing staff 12/21: Continue supportive care. Will give 500 cc bolus of fluid today to replace insensible losses. Tachycardia appears to be improving. Blood pressure precludes adjusting cardiac meds. Still awaiting placement from case management. Plan discussed in detail with the nursing staff 12/22. Continue support supportive care. Tracheostomy and PEG in place. Remains nonresponsive. Awaiting placement. 12/23. Continue support supportive care. Tracheostomy and PEG in place. Remains nonresponsive. Awaiting placement. Remains tachycardic. Decrease dose of lasix. Will try low dose metoprolol. Monitor BP closely 12/24. Continue support supportive care. Tracheostomy and PEG in place. Remains nonresponsive. Awaiting placement. Heart rate slightly better. Continue to monitor BP closely 12/25. Continue support supportive care. Tracheostomy and PEG in place. Remains nonresponsive. Awaiting placement. 12/26. Continue support supportive care. Tracheostomy and PEG in place. Remains nonresponsive. Awaiting placement 12/27. Continue support supportive care. Tracheostomy and PEG in place. Remains nonresponsive. Awaiting placement 12/28. Had fever yesterday. Blood culture drawn. UA - UTI - started on antibiotics. Now tracheal aspirate is growing GN rods. 12/29: Continue IV antibiotics, continue supportive care. Since admission patient has shown minimal or no chance of neurological recovery. Need 24/7 assistance. Currently on trach and PEG, nonverbal. Waiting on SNF placement. Discussed with complex case manager today. 12/30: Continue IV antibiotics for UTI, continue supportive care. Pending placement 12/31: continue supportive care. continue supportive care. Pending placement 01/01: continue supportive care. Pending placement. cont Iv abx for UTI till 01/04 01/02: Continue supportive care, pending placement. Sodium level slightly elevated, will start hypotonic fluid. Continue antibiotics till 01/04 01/03; cont hypotonic fluid, increase free water with TF for hypernatremia, follow BMP. cont supportive care. pending placement. cont cefepime. recx blood 01/04: resolved hyponatremia, cont supportive care, pending placement. Last day of supplement today. 01/05: Continue supportive care, pending placement. Monitor H&H and fever curve off antibiotic. 01/06; monitor off abx, suction as needed, Continue supportive care, pending placement. 01/07: Discharge pending on placement, vitals stable. Continue supportive care 01/08: Discharge pending on placement, vitals stable. Continue supportive care. stop lasix, increase metoprolol to 25mg BID for ST. 01/09 patient resting with eyes closed. Opens eyes to tactile stimulus, has a blink reflex, does not follow simple commands, has a T-collar / G-tube Lab results reviewed, low-grade fever, 01/10 Eyes open, does not follow simple commands, no acute events overnight 01/11 no acute events overnight Waiting for placement 01/12 No acute events overnight. Patient awaiting for placement 01/13. No new issues. Awaiting placement 01/14. No new issues. Awaiting placement. 01/15. No new issues. Awaiting placement. 01/16. No new issues. Patient remain stable. Awaiting placement. Check maintenance labs. 01/17. Routine maintenance labs were ordered and are still pending. Await placement. 01/18. Patient with low-grade fever past 24-48 hrs. WBC within normal limits. Check chest x-ray, urinalysis and consider blood cultures. Continue tracheostomy care, secretion control and airway management. Patient currently with PEG and tube feedings at 60 cc an hour. Nutritional support and aspiration precautions. 01/19. Temperature 100.7 overnight. Continue to monitor closely. Continue tracheostomy care, secretion control and airway management. Patient currently with PEG and tube feedings at 60 cc an hour. Nutritional support and aspiration precautions. 01/20. Continue to monitor closely. Continue tracheostomy care, secretion control and airway management. Patient currently with PEG and tube feedings at 60 cc an hour. Nutritional support and aspiration precautions. 01/21. Afebrile overnight. Continue to monitor closely. Continue tracheostomy care, secretion control and airway management. Patient currently with PEG and tube feedings at 60 cc an hour. Nutritional support and aspiration precautions. 01/22. Continue to monitor closely. Continue tracheostomy care, secretion control and airway management. Patient currently with PEG and tube feedings at 60 cc an hour. Nutritional support and aspiration precautions. 01/23. Continue tracheostomy care, secretion control and airway management. Patient currently with PEG and tube feedings at 60 cc an hour. Nutritional support and aspiration precautions. Will get routine labs tomorrow. 01/24. Labs reviewed. No abnormalities. Continue tracheostomy care, secretion control and airway management. Patient currently with PEG and tube feedings at 60 cc an hour. Nutritional support and aspiration precautions. History Interval history: Trach in place Nonverbal Not responsive to calls Hospitalist Physical - Physical exam Narrative exam: VITAL SIGNS: Reviewed. GENERAL: Trach in place HEAD: No signs of head trauma. EYES: Pupils are equal. NECK: No adenopathy, no JVD. CHEST: Diminished breath sounds CARDIAC: normal S1 and S2, without murmurs, gallops, or rubs. ABDOMEN: Soft, non tender and non distended. No rebound or guarding, and no masses palpated. Bowel Sounds normal MUSCULOSKELETAL: No edema NEUROLOGIC EXAM: Not responsive SKIN: No obvious lesions - Constitutional Vitals: Temp Pulse Resp BP Pulse Ox 98.9 F 88 16 106/69 98 01/24/21 04:38 01/24/21 04:38 01/24/21 04:38 01/24/21 04:38 01/24/21 04:38 HEART Score - HEART Score Age: < 45 Risk factors: 1-2 risk factors - Critical Actions Critical Actions: >7 pts:50-65% risk of adverse cardiac event. Early invasive measures Results - Labs CBC & Chem 7: 01/24/21 04:18 01/24/21 04:18 Labs: Laboratory Last Values WBC 7.3 K/mm3 (4.5-11.0) 01/24/21 04:18 RBC 5.23 M/mm3 (3.65-5.03) H 01/24/21 04:18 Hgb 12.9 gm/dl (10.1-14.3) 01/24/21 04:18 Hgb Comment See scanned result 10/04/20 Unknown Hct 39.1 % (30.3-42.9) 01/24/21 04:18 MCV 75 fl (79-97) L 01/24/21 04:18 MCH 25 pg (28-32) L 01/24/21 04:18 MCHC 33 % (30-34) 01/24/21 04:18 RDW 14.0 % (13.2-15.2) 01/24/21 04:18 Plt Count 272 K/mm3 (140-440) 01/24/21 04:18 Lymph % (Auto) 27.2 % (13.4-35.0) 01/24/21 04:18 [place] % (Auto) 11.8 % (0.0-7.3) H 01/24/21 04:18 Eos % (Auto) 1.6 % (0.0-4.3) 01/24/21 04:18 Baso % (Auto) 0.5 % (0.0-1.8) 01/24/21 04:18 Lymph # (Auto) 2.0 K/mm3 (1.2-5.4) 01/24/21 04:18 [place] # (Auto) 0.9 K/mm3 (0.0-0.8) H 01/24/21 04:18 Eos # (Auto) 0.1 K/mm3 (0.0-0.4) 01/24/21 04:18 Baso # (Auto) 0.0 K/mm3 (0.0-0.1) 01/24/21 04:18 Add Manual Diff Complete 12/10/20 09:37 Total Counted 100 12/10/20 09:37 Seg Neutrophils % 58.9 % (40.0-70.0) 01/24/21 04:18 Seg Neuts % (Manual) 81.0 % (40.0-70.0) H 12/10/20 09:37 Band Neutrophils % 2.0 % 10/15/20 05:50 Lymphocytes % (Manual) 17.0 % (13.4-35.0) 12/10/20 09:37 Reactive Lymphs % (Man) 1.0 % 10/02/20 12:18 Monocytes % (Manual) 2.0 % (0.0-7.3) 12/10/20 09:37 Eosinophils % (Manual) 1.0 % (0.0-4.3) 10/29/20 07:56 Myelocytes % 2.0 % 10/02/20 13:05 Metamyelocytes % 1.0 % 10/14/20 04:00 Nucleated RBC % Not Reportable 12/10/20 09:37 Seg Neutrophils # 4.3 K/mm3 (1.8-7.7) 01/24/21 04:18 Seg Neutrophils # Man 10.1 K/mm3 (1.8-7.7) H 12/10/20 09:37 Band Neutrophils # 0.0 K/mm3 12/10/20 09:37 Lymphocytes # (Manual) 2.1 K/mm3 (1.2-5.4) 12/10/20 09:37 Abs React Lymphs (Man) 0.0 K/mm3 12/10/20 09:37 Monocytes # (Manual) 0.3 K/mm3 (0.0-0.8) 12/10/20 09:37 Eosinophils # (Manual) 0.0 K/mm3 (0.0-0.4) 12/10/20 09:37 Basophils # (Manual) 0.0 K/mm3 (0.0-0.1) 12/10/20 09:37 Metamyelocytes # 0.0 K/mm3 12/10/20 09:37 Myelocytes # 0.0 K/mm3 12/10/20 09:37 Promyelocytes # 0.0 K/mm3 12/10/20 09:37 Blast Cells # 0.0 K/mm3 12/10/20 09:37 WBC Morphology Not Reportable 12/10/20 09:37 Hypersegmented Neuts Not Reportable 12/10/20 09:37 Hyposegmented Neuts Not Reportable 12/10/20 09:37 Hypogranular Neuts Not Reportable 12/10/20 09:37 Smudge Cells Not Reportable 12/10/20 09:37 Toxic Granulation Not Reportable 12/10/20 09:37 Toxic Vacuolation Not Reportable 12/10/20 09:37 Dohle Bodies Not Reportable 12/10/20 09:37 Pelger-Huet Anomaly Not Reportable 12/10/20 09:37 Ester Rods Not Reportable 12/10/20 09:37 Platelet Estimate Consistent w auto 12/10/20 09:37 Clumped Platelets Not Reportable 12/10/20 09:37 Plt Clumps, EDTA Not Reportable 12/10/20 09:37 Large Platelets Not Reportable 12/10/20 09:37 Giant Platelets Not Reportable 12/10/20 09:37 Platelet Satelliting Not Reportable 12/10/20 09:37 Plt Morphology Comment Not Reportable 12/10/20 09:37 RBC Morphology Normal 12/10/20 09:37 Dimorphic RBCs Not Reportable 12/10/20 09:37 Polychromasia Not Reportable 12/10/20 09:37 Hypochromasia 1+ 12/10/20 09:37 Poikilocytosis Not Reportable 12/10/20 09:37 Anisocytosis Not Reportable 12/10/20 09:37 Microcytosis Not Reportable 12/10/20 09:37 Macrocytosis Not Reportable 12/10/20 09:37 Spherocytes Not Reportable 12/10/20 09:37 Pappenheimer Bodies Not Reportable 12/10/20 09:37 Sickle Cells Not Reportable 12/10/20 09:37 Target Cells Not Reportable 12/10/20 09:37 Tear Drop Cells Not Reportable 12/10/20 09:37 Ovalocytes Not Reportable 12/10/20 09:37 Stomatocytes Few 10/14/20 04:00 Helmet Cells Not Reportable 12/10/20 09:37 Burk-Courtenay Bodies Not Reportable 12/10/20 09:37 [place] Rings Not Reportable 12/10/20 09:37 Antoine Cells Not Reportable 12/10/20 09:37 Bite Cells Not Reportable 12/10/20 09:37 Crenated Cell Not Reportable 12/10/20 09:37 Elliptocytes Not Reportable 12/10/20 09:37 Acanthocytes (Spur) Not Reportable 12/10/20 09:37 Rouleaux Not Reportable 12/10/20 09:37 Hemoglobin C Crystals Not Reportable 12/10/20 09:37 Schistocytes Not Reportable 12/10/20 09:37 Malaria parasites Not Reportable 12/10/20 09:37 Sickle Cell Solubility See scanned result 10/04/20 Unknown Hemoglobin A See scanned result 10/04/20 Unknown Hemoglobin A2 See scanned result 10/04/20 Unknown Hemoglobin A2 Prime See scanned result 10/04/20 Unknown Hemoglobin C See scanned result 10/04/20 Unknown Hemoglobin D See scanned result 10/04/20 Unknown Hemoglobin E See scanned result 10/04/20 Unknown Hgb F Diffential Stain See scanned result 10/04/20 Unknown Hemoglobin F Quant See scanned result 10/04/20 Unknown Hemoglobin G See scanned result 10/04/20 Unknown Hemoglobin S See scanned result 10/04/20 Unknown Hemoglobin O-[place] See scanned result 10/04/20 Unknown Hemoglobin [place] See scanned result 10/04/20 Unknown Hemoglobin Analilia See scanned result 10/04/20 Unknown Variant Hemoglobin See scanned result 10/04/20 Unknown Abnorm Hgb IEF Confirm See scanned result 10/04/20 Unknown Hemoglobin Interpret See scanned result 10/04/20 Unknown Hemoglobinopathy Note See scanned result 10/04/20 Unknown Sharad Bodies Not Reportable 12/10/20 09:37 Hem Pathologist Commnt No 12/10/20 09:37 PT 13.6 Sec. (12.2-14.9) 10/21/20 13:54 INR 1.06 (0.87-1.13) 10/21/20 13:54 APTT 31.6 Sec. (24.2-36.6) 10/03/20 00:40 Fibrinogen 336 mg/dl (211-480) 10/04/20 10:00 D-Dimer 1974.47 ng/mlDDU (0-234) H 11/11/20 13:50 ABG pH 7.459 pH Units (7.350-7.450) H 10/26/20 10:30 POC ABG pCO2 20.7 mmHg (32.0-48.0) L 10/13/20 07:18 ABG pCO2 32.4 mm Hg 10/26/20 10:30 POC ABG pO2 137.9 mmHg (83-108) H 10/13/20 07:18 ABG pO2 112.2 mm Hg (80.0-90.0) H 10/26/20 10:30 POC ABG HCO3 14.8 10/13/20 07:18 ABG HCO3 22.5 mmol/L (20.0-26.0) 10/26/20 10:30 ABG O2 Saturation 98.2 % (95.0-99.0) 10/26/20 10:30 ABG O2 Content 18.5 (0.0-44) 10/26/20 10:30 POC ABG Base Excess -6.9 10/13/20 07:18 ABG Base Excess -0.6 mmol/L (-2.0-3.0) 10/26/20 10:30 ABG Hemoglobin 13.5 gm/dl (12.0-16.0) 10/26/20 10:30 ABG Oxyhemoglobin 98.3 (94-98) H 10/13/20 07:18 ABG Carboxyhemoglobin 1.3 % (0.0-5.0) 10/26/20 10:30 ABG Methemoglobin 0.5 % (0.0-1.5) 10/26/20 10:30 ABG Sodium 135.9 mmol/L (136.0-145.0) L 10/13/20 07:18 ABG Potassium 3.7 mmol/L (3.40-4.50) 10/13/20 07:18 ABG Chloride 111.0 mmol/L (98-107) H 10/13/20 07:18 ABG Glucose 109 mg/dL (65-95) H 10/13/20 07:18 VBG pH 6.949 (7.320-7.420) L* 10/02/20 Unknown Oxyhemoglobin 96.5 % (95.0-99.0) 10/26/20 10:30 Carboxyhemoglobin 0.3 (0.5-1.5) L 10/13/20 07:18 FiO2 25 % 10/26/20 10:30 Sodium 138 mmol/L (137-145) 01/24/21 04:18 Potassium 4.4 mmol/L (3.6-5.0) 01/24/21 04:18 Chloride 101.8 mmol/L (98-107) 01/24/21 04:18 Carbon Dioxide 24 mmol/L (22-30) 01/24/21 04:18 Anion Gap 17 mmol/L 01/24/21 04:18 BUN 10 mg/dL (7-17) 01/24/21 04:18 Creatinine 0.6 mg/dL (0.6-1.2) 01/24/21 04:18 Estimated GFR > 60 ml/min 01/24/21 04:18 BUN/Creatinine Ratio 17 % 01/24/21 04:18 Glucose 97 mg/dL (65-100) 01/24/21 04:18 POC Glucose 109 mg/dL (70-105) H 01/23/21 23:54 Random Insulin 43.2 uIU/mL (<=19.6) H 11/02/20 19:19 Proinsulin See scanned result 11/02/20 19:19 C-Peptide 6.23 ng/mL (0.80-3.85) H 11/02/20 19:19 Lactic Acid 1.90 mmol/L (0.7-2.0) 10/04/20 22:00 Uric Acid 7.5 mg/dL (3.5-7.6) 10/02/20 13:05 Calcium 9.5 mg/dL (8.4-10.2) 01/24/21 04:18 Ionized Calcium 4.4 mg/dL (4.8-5.6) L 10/07/20 21:00 Phosphorus 4.60 mg/dL (2.5-4.5) H 11/13/20 10:05 Magnesium 2.10 mg/dL (1.7-2.3) 11/13/20 10:05 Total Bilirubin 0.30 mg/dL (0.1-1.2) 01/24/21 04:18 AST 31 units/L (5-40) 01/24/21 04:18 ALT 21 units/L (7-56) 01/24/21 04:18 Alkaline Phosphatase 92 units/L (35-129) 01/24/21 04:18 Lactate Dehydrogenase 769 units/L (91-180) H 10/02/20 13:05 C-Reactive Protein 0.70 mg/dL (0.00-1.30) 11/11/20 13:50 NT-Pro-B Natriuret Pep 2788 pg/mL (0-450) H 10/04/20 10:00 Total Protein 7.7 g/dL (6.3-8.2) 01/24/21 04:18 Albumin 3.7 g/dL (3.9-5) L 01/24/21 04:18 Albumin/Globulin Ratio 0.9 % 01/24/21 04:18 Procalcitonin < 0.05 ng/mL (<0.15) 12/27/20 20:16 Arterial Blood Glucose 109 mg/dL (65-95) H 10/13/20 07:18 Arterial Blood Ionized Calcium 4.6 mg/dL (4.6-5.3) 10/13/20 07:18 Urine Color Yellow (Yellow) 01/18/21 08:47 Urine Turbidity Slightly-cloudy (Clear) 01/18/21 08:47 Urine pH 8.0 (5.0-7.0) H 01/18/21 08:47 Ur Specific [place] 1.009 (1.003-1.030) 01/18/21 08:47 Urine Protein <15 mg/dl mg/dL (Negative) 01/18/21 08:47 Urine Glucose (UA) Neg mg/dL (Negative) 01/18/21 08:47 Urine Ketones Neg mg/dL (Negative) 01/18/21 08:47 Urine Blood Neg (Negative) 01/18/21 08:47 Urine Nitrite Neg (Negative) 01/18/21 08:47 Urine Bilirubin Neg (Negative) 01/18/21 08:47 Urine Urobilinogen < 2.0 mg/dL (<2.0) 01/18/21 08:47 Ur Leukocyte Esterase Neg (Negative) 01/18/21 08:47 Urine WBC (Auto) 1.0 /HPF (0.0-6.0) 01/18/21 08:47 Urine RBC (Auto) 1.0 /HPF (0.0-6.0) 01/18/21 08:47 U Epithel Cells (Auto) 1.0 /HPF (0-13.0) 01/18/21 08:47 Urine Bacteria (Auto) 1+ /HPF (Negative) 01/18/21 08:47 Urine WBC Clumps 3+ /HPF 11/11/20 13:50 Calcium Oxalate Crystal Few 11/11/20 13:50 Urine Mucus 3+ /HPF 12/27/20 22:25 Urine Yeast (Budding) 2+ /HPF 12/10/20 09:25 Vancomycin Trough 12.6 ug/mL (5.0-20.0) 10/21/20 13:54 Random Vancomycin 10.7 ug/mL (0-40.0) 10/16/20 13:09 Phenytoin 5.7 ug/mL (10.0-20.0) L 10/13/20 07:00 C. difficile Tox (PCR) Positive (Negative) 10/16/20 10:22 Coronavirus (PCR) Negative (Negative) 10/08/20 14:15 Blood Type O POSITIVE 10/02/20 12:50 Antibody Screen Negative 10/02/20 12:50 Crossmatch See Detail 10/02/20 12:50 - Diagnostic Impressions Diagnostic Impressions: Echocardiogram 10/03/20 13:42 Transthoracic Echocardiogram Indication: S/P Cardiac Arrest R/O Cardiomyopathy BP: 133/71 Conclusions *Global left ventricular systolic function is normal. *The estimated ejection fraction is 60-65%. *There is trace of mitral regurgitation. *The right 0heart chambers are both slightly dilated. *There is mild tricuspid regurgitation. *There is mild-moderate pulmonary hypertension. *The right ventricular systolic pressure is calculated at 44 mmHg. *The study quality is technically difficult. Findings Procedure Info: The study quality is technically difficult. The study is technically limited due to patient body habitus. The study was technically limited due to the patient's inability to lay in the left lateral decubitus position. Left Ventricle: The left ventricular chamber size is normal. There is no left ventricular hypertrophy. Global left ventricular systolic function is normal. The estimated ejection fraction is 60-65%. Left Atrium: The left atrial chamber size is normal. Right Ventricle: The right ventricle is slightly dilated. Right Atrium: The right atrium is mildly dilated. Aortic Valve: The aortic valve leaflets are mildly thickened. There is no evidence of aortic regurgitation. There is no evidence of aortic stenosis. Mitral Valve: The mitral valve leaflets are mildly thickened. There is trace of mitral regurgitation. There is no evidence of mitral stenosis. Tricuspid Valve: There is mild tricuspid regurgitation. The right ventricular systolic pressure is calculated at 44 mmHg. There is evidence of mild pulmonary hypertension. Pulmonic Valve: There is trace pulmonic regurgitation. Pericardium: There is no pericardial effusion. Aorta: There is no dilatation of the ascending aorta. There is no dilatation of the aortic root. Venous: The inferior vena cava is dilated. Measurements Chambers 2D Name Value Normal Range IVSd (2D) 1 cm (0.6 - 1.1) LVPWd (2D) 1.01 cm (0.6 - 1.1) LVIDd (2D) 4.58 cm (3.7 - 5.6) LVIDs (2D) 3.17 cm (2 - 3.8) LV FS (2D) 30.93 % - EF Teichholz (2D) 58.66 % - Ao root diameter (2D) 2.94 cm (2 - 3.7) Volumes/Mass Name Value Normal Range LA ESV SP 4CH (A/L) 72.82 ml - LA ESV SP 2CH (A/L) 66.86 ml - LA ESV BP (A/L) 74.49 ml - LA ESV SP 4CH (MOD) 71.03 ml - LA ESV SP 2CH (MOD) 64.3 ml - LV EDV SP 4CH (MOD) 98.82 ml - LV ESV SP 4CH (MOD) 24.8 ml - EF SP 4CH (MOD) 74.9 % - LV EDV SP 2CH (MOD) 86.1 ml - LV ESV SP 2CH (MOD) 36.93 ml - EF SP 2CH (MOD) 57.11 % - LV EDV BP 94.4 ml - LV ESV BP 32.66 ml - BP EF (MOD) 65.4 % - Diastolic/Systolic Function Name Value Normal Range MV E-wave Vmax 1.04 m/sec - MV deceleration time 160.46 msec - MV A-wave Vmax 0.92 m/sec - MV E:A ratio 1.14 ratio - Aortic Valve Name Value Normal Range AV Vmax 2.12 m/sec - AV VTI 22.37 cm - AV peak gradient 17.95 mmHg - AV mean gradient 7.29 mmHg - LVOT diameter 2.01 cm - LVOT Vmax 1.8 m/sec - LVOT VTI 27.17 cm - LVOT peak gradient 12.91 mmHg - LVOT mean gradient 6.83 mmHg - SV LVOT 86.42 ml - ANITA (continuity Vmax) 2.7 cm2 - ANITA (continuity VTI) 3.86 cm2 - Ascending Ao 3.18 cm - Tricuspid Valve Name Value Normal Range TV E-wave Vmax 0.88 m/sec - TR Vmax 3.01 m/sec - TR peak gradient 36.27 mmHg - RAP 8 mmHg - RVSP 44 mmHg - IVC diameter 2.65 cm (1.2 - 2.3) Pulmonic Valve/Qp:Qs Name Value Normal Range PV Vmax 1.22 m/sec - PV peak gradient 5.91 mmHg - RVOT Vmax 0.87 m/sec - RVOT VTI 13.32 cm - RVOT peak gradient 3 mmHg - PV acceleration time 110.37 msec - [place]/IV: Voiding Method External Female Catheter IV Catheter Type [Right Foot] INT / Saline Lock IV Catheter Type [Left Forearm Peripheral IV ] IV Catheter Type [Left Wrist] INT / Saline Lock IV Catheter Type [Right Hand] INT / Saline Lock IV Catheter Type [Right INT / Saline Lock Antecubital] IV Catheter Type [Right Upper Mid-line arm] IV Catheter Type [Left Triple Lumen Cath Internal Jugular] IV Catheter Type [Left Hand] Peripheral IV IV Catheter Type [Left Peripheral IV Antecubital] Active Medications - Current Medications Current Medications: Generic Name Dose Route Start Last Admin Trade Name Freq PRN Reason Stop Dose Admin Acetaminophen 650 mg 10/05/20 16:34 01/23/21 11:39 Acetaminophen 325 Mg/10.15 Ml Oral Liqd Unit Dose FEEDTUBE 650 mg Q6H PRN Administration Non Cardiac Pain or Temp>100.5 Albuterol 2.5 mg 11/05/20 13:03 11/06/20 13:04 Albuterol 2.5 Mg/3 Ml Nebu IH 2.5 mg Q4HRT PRN Administration Shortness Of Breath Alprazolam 0.25 mg 01/20/21 13:33 01/23/21 20:29 Alprazolam 0.25 Mg Tab PO 0.25 mg Q8H PRN Administration Anxiety Lipase/Protease/Amylase 1 each 10/05/20 11:09 Lipase 10,500/Protease 25,000/Amylase 43,750 (Units) Dr Barakat FEEDTUBE PRN PRN For Clogged Feeding Tube Enoxaparin Sodium 40 mg 10/22/20 10:00 01/23/21 11:40 Enoxaparin 40 Mg/0.4 Ml Inj SUB-Q 40 mg DAILY ERINN Administration Protocol Famotidine 20 mg 10/07/20 10:00 01/23/21 21:42 Famotidine 20 Mg Tab PO 20 mg BID ERINN Administration Hydralazine HCl 20 mg 10/07/20 11:49 10/17/20 07:20 Hydralazine 20 Mg/1 Ml Inj IV 20 mg Q6H PRN Administration SBP >170 Hydrophilic Ointment 1 applic 01/03/21 13:00 Lip Therapy Vaseline TP DIRECT PRN Dry Lips Dextrose 1,000 mls @ 30 mls/hr 01/03/21 12:00 01/23/21 20:30 D5w IV 75 mls/hr DIRECT ERINN Administration Metoprolol Tartrate 25 mg 01/08/21 22:00 01/23/21 22:10 Metoprolol Tartrate 25 Mg Tab PO 25 mg BID ERINN Administration Morphine Sulfate 2 mg 01/20/21 13:33 Morphine 2 Mg/1 Ml Inj IV Q4H PRN Pain, Moderate (4-6) Polyethylene Glycol 17 gm 12/27/20 15:07 12/28/20 10:05 Polyethylene Glycol 3350 17 Gm Powder PO 17 gm QDAY PRN Administration Constipation Simple Syrup 15 ml 10/05/20 11:09 Simple Syrup 15 Ml FEEDTUBE PRN PRN Hypoglycemia Simple Syrup 30 ml 10/05/20 11:09 Simple Syrup 15 Ml FEEDTUBE PRN PRN Hypoglycemia Sodium Bicarbonate 325 mg 10/05/20 11:09 12/16/20 08:19 Sodium Bicarbonate 325 Mg Tab FEEDTUBE 325 mg PRN PRN Administration For Clogged Feeding Tube Nutrition/Malnutrition Assess - Dietary Evaluation Nutrition/Malnutrition Findings: Nutrition Notes Start: 10/04/20 11:13 Freq: Status: Active Protocol: Document 01/18/21 12:18 BREANNA (Rec: 01/18/21 12:24 BREANNA [id number]) Nutrition Notes Initial or Follow up Reassessment Current Diagnosis Respiratory Failure Other Pertinent Diagnosis s/p cardiac arrest x 2, anoxic brain injury Current Diet TF - Jevity 1.2 at 60ml/hr Labs/Tests Na 135 (yesterday) Pertinent Medications reviewed Height 5 ft 8 in Weight 97 kg [place] Body Weight (kg) 63.63 BMI 32.5 Weight change and time frame Wt change noted Weight Status Obese Subjective/Other Information Pt continues to tolerate TF at goal rate. She is awaiting placement. Percent of energy/protein needs met: 83% energy 100% pro Burn Absent Trauma Absent #2 Nutrition Diagnosis Malnutrition Diagnosis Progress(for reassessment Continues documentation) #1 Nutrition Diagnosis Inadequate oral intake Diagnosis Progress(for reassessment Continues documentation) Is patient on ventilator? No Is Patient Ambulatory and/or Out of Bed No REE-([facility]-confined to bed) 2076.108 Kcal/Kg value to use for calculation 16 Approximate Energy Requirements Using 1552 kcal/Kg Calculation Used for Recommendations [facility] Additional Notes Pro needs 0.8-1g/kg adjBW: 63- 79g/day Fluid needs 1ml/kcal Nutrition Intervention Nutrition Support: Continue Jevity 1.2 at 60ml/hr . Flush 100ml q4h. Kcal 1,728 Protein (gm) 80 Fluid (mL) 1,162 Goal #1 TF tolerance Goal #2 TF to meet at least 75% energy and pro needs Follow-Up By: 01/25/21 Additional Comments F/U: stable TF, wt
[2021-01-24] MEDS: ENOXAPARIN 40 MG/0.4 ML INJ SUB-Q SCH (11:00)
[2021-01-24] MEDS: FAMOTIDINE 20 MG TAB PO SCH ×2 (11:00→21:29)
[2021-01-24] MEDS: ACETAMINOPHEN 325 MG/10.15 ML ORAL LIQD UNIT DOSE FEEDTUBE PRN (18:17)
[2021-01-24] MEDS: METOPROLOL TARTRATE 25 MG TAB PO SCH ×2 (18:18→21:29)
[2021-01-25] MEDS: ALPRAZolam 0.25 MG TAB PO PRN ×2 (01:41→12:47)
[2021-01-25] MEDS: ACETAMINOPHEN 325 MG/10.15 ML ORAL LIQD UNIT DOSE FEEDTUBE PRN ×2 (05:25→12:46)
[2021-01-25] MEDS: DEXTROSE 5% IN WATER 1,000 ML IV SCH (05:32)
--- NOTE | 2021-01-25 09:55 | Progress Note ---
Assessment and Plan Assessment and plan: --DIC (disseminated intravascular coagulation) vs HELLP syndrome Resolved --Possible Eclampsia/HELLP Syndrome Resolved --s/p Cardiac arrest x2 on admission and on 10/07 ACLS protocol followed by revival Echo showed preserved Ef --Anoxic brain injury, Developed following cardiac arrest, continue supportive care --Shock-resolved now awaiting placement s/p pressor support --ADOLPH-resolved Stable --Sepsis 2/2 UTI s/p cefepime to cover possible pseudomonas as sputum is also growing GN rods till 01/04/21 Previous urine culture grew pansensitive ecoli Blood cultures from 12/27-no growth --Hypernatremia, resolved, cont free water with TF --DVT prophylaxis Patient presented with DIC No anticoagulants Overall prognosis extremely poor. Daily clinical course 10/02/21 11:30: Pt brought to L&D triage for evaluation of possible labor. Pt accompanied by her spouse. Pt spouse poor historian; unable to obtain history- allergies at this time. Pt taken from registration to triage area via WC. Pt unresponsive, actively seizing with snorous respirations. supervisor green end department, Kassy, called and requesting assistance. 11:35: Multiple staff at bedside. Pt 02 sat 67% on nonrebreather, unable to read BP at this time. Yifan Theodore CRNA, at bedside for intubation and assistance with IV insertion. INT attempt by multiple RNs unsuccessful at this time. 11:42: Pt being bagged by KORIN, 02% 79%. No pulse palpated, compressions started at this time; bharati young called and Dr. Newberry preparing OR for emergent c/s. 11:44: Continued compressions on stretcher while transporting pt to OR 1. Pt being bagged with jaw thrust manuever in place by KORIN Stringer student. 11:45: Arrival to OR 1. Dr. Newberry and Dr. Portillo present for emergent c/s. Code team arrived for continued care. patient revived and c/s done Patient has been bleeding from C/s site followed by supracervical hysterectomy for severe bleeding Patient transfused multiple units of PRBC, Patient in DIC. Transferred to the ICU 10/03. Patient seen and examined at bedside this morning. Patient is nonresponsive and mechanically ventilated. On pressors. Labs reviewed-has leukocytosis, anemia, thrombocytopenia, ADOLPH and lactic acidosis. Started on IV antibiotics to cover possible sepsis secondary to DIC. Hematology oncology recommendations appreciated-needs additional cryoprecipitate and FFP. Monitor D-dimer, fibrinogen and frequent labs. Nephrology consulted for lactic acidosis and ADOLPH. 10/04. Remains mechanically ventilated. Kevin antibiotics. Labs shows improved acidosis - lactic acid 3.5. Hb drop noted. Getting transfused 2 units PRBCs. Platelet count is ~40k. Continue to monitor labs closely. Critical care team on board. 10/05; xray reviewed, concerning for multifocal infilrate, likely underlying Pn eumonia, will add ID consult to assist with management of this critically ill patient, start tube feed, closely monitor renal system 10/06: Resumed care, remains on mechanical ventilation. No active bleeding, H&H stable. Continue to monitor CBC and BMP. Continue IV antibiotic for underlying pneumonia. Follow critical care and ID recommendation. 10/07: Remains on mechanical ventilation. No active bleeding, H&H stable. Critical care following, wean off ventilation as tolerated. 10/08: Patient had another cardiac arrest last night. Remains on mechanical ventilation, update family. Continue supportive care -poor prognosis 10/09: Called patient mother and discussed about patient care and management. Answered all question to best of my knowledge and family satisfaction. Patient remains on mechanical ventilation, cardiac arrest x2 so far. Critically sick, poor prognosis 10/10: remains on mechanical ventilation. h/h stable, no active bleeding. monitor CBC/BMP 10/11: WBC trended up with diarrhea, started on vancomycin po. remains on MV, off pressor, tolerating TF 10/12: remains on MV, off pressor, tolerating TF. called family for update but unable to reach, could not leave message as it was full. cont supportive care, wean off vent as tolerated. 10/13/2020; patient is on mechanical ventilation, tolerating tube feeding. Patient has labored breathing. Neuro was consulted and recommend MRI. Patient is on Precedex. Rectal tube in place. 10/14/2020; patient is on mechanical ventilation, Precedex. Patient had fever and blood culture ordered. Patient is on IV vancomycin per ID recommendation. Neuro consulted and recommend MRI. Continue to monitor. Prognosis is guarded. 10/15/2020; patient is on mechanical ventilation, Precedex. Patient had fever and blood culture ordered. Patient is on IV vancomycin per ID recommendation. Neuro consulted and recommend MRI. Continue to monitor. Prognosis is guarded. 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 12/06/20; anoxic brain injury. Awaiting placement. 12/07/2020; anoxic brain injury, awaiting placement. 12/09/2020; anoxic brain injury, awaiting placement. 12/10/2020; patient had episodes of fever overnight. CBC, BMP, blood culture, UA and chest x-ray ordered, will follow and manage accordingly. Urinalysis is suggestive of UTI and I put the patient on ceftriaxone, order urine culture. Chest x-ray is normal. 12/11/2020; patient is on ceftriaxone day 2 for UTI. We will continue to follow urine culture. 12/12/2020. Day #3 of Rocephin for UTI. We will continue for 2 more days while she is here. Present UTI. 12/13/2020. Day #4 of Rocephin for UTI. Patient remains on 50% with tracheos serafin. Remains unresponsive with evidence of anoxic encephalopathy unable to make needs known. 12/14/2020. Day #5 of Rocephin for UTI completed today. Remains encephalopathic unable to make needs known. Remains on 50% unable to decrease oxygen via tracheostomy. Overall prognosis remains extremely poor. 3: Continue to monitor. Stop and monitor antibiotics at this time. Continue to wean oxygen as tolerated. Wean oxygen as tolerated. Case management working on placement. 12/16: Continue supportive care aspiration precautions. Awaiting placement discussion. Monitor fever curve. Prognosis remains poor no evidence of neurological recovery as of today 12/17: Continue supportive care, check labs and chest xray. Still monitor off antibiotics. Monitor Sodium level 12/18: Patient remains with intermittent low grade fever, reviewed EEG from September again, consistent for Ischemic Hypoxic Encephalopathy, patient with decorticating posturing type presentation. Will discuss with buzzle buffer to op timize diet so we can discontinue D5. CXR with no abnormality. Discussed extensively with the nursing staff at bedside CXR IMPRESSION: 1. No acute findings. 12/19: No clinical change 12/20: No clinical change, now off abx, monitor, discussed her medications with our pharmacist I believe that her posture and rigidity is likely from underlying anoxic encephalopathy. Continue to monitor and await placement decision. Continue aggressive suctioning. Plan discussed in detail with the nursing staff 12/21: Continue supportive care. Will give 500 cc bolus of fluid today to replace insensible losses. Tachycardia appears to be improving. Blood pressure precludes adjusting cardiac meds. Still awaiting placement from case management. Plan discussed in detail with the nursing staff 12/22. Continue support supportive care. Tracheostomy and PEG in place. Remains nonresponsive. Awaiting placement. 12/23. Continue support supportive care. Tracheostomy and PEG in place. Remains nonresponsive. Awaiting placement. Remains tachycardic. Decrease dose of lasix. Will try low dose metoprolol. Monitor BP closely 12/24. Continue support supportive care. Tracheostomy and PEG in place. Remains nonresponsive. Awaiting placement. Heart rate slightly better. Continue to monitor BP closely 12/25. Continue support supportive care. Tracheostomy and PEG in place. Remains nonresponsive. Awaiting placement. 12/26. Continue support supportive care. Tracheostomy and PEG in place. Remains nonresponsive. Awaiting placement 12/27. Continue support supportive care. Tracheostomy and PEG in place. Remains nonresponsive. Awaiting placement 12/28. Had fever yesterday. Blood culture drawn. UA - UTI - started on antibiotics. Now tracheal aspirate is growing GN rods. 12/29: Continue IV antibiotics, continue supportive care. Since admission patient has shown minimal or no chance of neurological recovery. Need 24/7 assistance. Currently on trach and PEG, nonverbal. Waiting on SNF placement. Discussed with family service caseworker today. 12/30: Continue IV antibiotics for UTI, continue supportive care. Pending placement 12/31: continue supportive care. continue supportive care. Pending placement 01/01: continue supportive care. Pending placement. cont Iv abx for UTI till 01/04 01/02: Continue supportive care, pending placement. Sodium level slightly elevated, will start hypotonic fluid. Continue antibiotics till 01/04 01/03; cont hypotonic fluid, increase free water with TF for hypernatremia, follow BMP. cont supportive care. pending placement. cont cefepime. recx blood 01/04: resolved hyponatremia, cont supportive care, pending placement. Last day of supplement today. 01/05: Continue supportive care, pending placement. Monitor H&H and fever curve off antibiotic. 01/06; monitor off abx, suction as needed, Continue supportive care, pending placement. 01/07: Discharge pending on placement, vitals stable. Continue supportive care 01/08: Discharge pending on placement, vitals stable. Continue supportive care. stop lasix, increase metoprolol to 25mg BID for ST. 01/09 patient resting with eyes closed. Opens eyes to tactile stimulus, has a blink reflex, does not follow simple commands, has a T-collar / G-tube Lab results reviewed, low-grade fever, 01/10 Eyes open, does not follow simple commands, no acute events overnight 01/11 no acute events overnight Waiting for placement 01/12 No acute events overnight. Patient awaiting for placement 01/13. No new issues. Awaiting placement 01/14. No new issues. Awaiting placement. 01/15. No new issues. Awaiting placement. 01/16. No new issues. Patient remain stable. Awaiting placement. Check maintenance labs. 01/17. Routine maintenance labs were ordered and are still pending. Await placement. 01/18. Patient with low-grade fever past 24-48 hrs. WBC within normal limits. Check chest x-ray, urinalysis and consider blood cultures. Continue tracheostomy care, secretion control and airway management. Patient currently with PEG and tube feedings at 60 cc an hour. Nutritional support and aspiration precautions. 01/19. Temperature 100.7 overnight. Continue to monitor closely. Continue tracheostomy care, secretion control and airway management. Patient currently with PEG and tube feedings at 60 cc an hour. Nutritional support and aspiration precautions. 01/20. Continue to monitor closely. Continue tracheostomy care, secretion control and airway management. Patient currently with PEG and tube feedings at 60 cc an hour. Nutritional support and aspiration precautions. 01/21. Afebrile overnight. Continue to monitor closely. Continue tracheostomy care, secretion control and airway management. Patient currently with PEG and tube feedings at 60 cc an hour. Nutritional support and aspiration precautions. 01/22. Continue to monitor closely. Continue tracheostomy care, secretion control and airway management. Patient currently with PEG and tube feedings at 60 cc an hour. Nutritional support and aspiration precautions. 01/23. Continue tracheostomy care, secretion control and airway management. Patient currently with PEG and tube feedings at 60 cc an hour. Nutritional support and aspiration precautions. Will get routine labs tomorrow. 01/24. Labs reviewed. No abnormalities. Continue tracheostomy care, secretion control and airway management. Patient currently with PEG and tube feedings at 60 cc an hour. Nutritional support and aspiration precautions. 01/25. Temp 100.6. More sleepy today. Will get chest xray, blood culture, urinalysis, sputum cultures. Will start on empirical abx. History Interval history: Trach in place Nonverbal Not responsive to calls Hospitalist Physical - Physical exam Narrative exam: VITAL SIGNS: Reviewed. GENERAL: Trach in place HEAD: No signs of head trauma. EYES: Pupils are equal. NECK: No adenopathy, no JVD. CHEST: Diminished breath sounds CARDIAC: normal S1 and S2, without murmurs, gallops, or rubs. ABDOMEN: Soft, non tender and non distended. No rebound or guarding, and no masses palpated. Bowel Sounds normal MUSCULOSKELETAL: No edema NEUROLOGIC EXAM: Not responsive SKIN: No obvious lesions - Constitutional Vitals: Temp Pulse Resp BP Pulse Ox 100.6 F H 116 H 18 102/67 95 01/25/21 05:17 01/25/21 05:17 01/25/21 06:25 01/25/21 05:17 01/25/21 05:17 General appearance: Present: other (Persistent vegetative state) HEART Score - HEART Score Age: < 45 Risk factors: 1-2 risk factors - Critical Actions Critical Actions: >7 pts:50-65% risk of adverse cardiac event. Early invasive measures Results - Labs CBC & Chem 7: 01/24/21 04:18 01/24/21 04:18 Labs: Laboratory Last Values WBC 7.3 K/mm3 (4.5-11.0) 01/24/21 04:18 RBC 5.23 M/mm3 (3.65-5.03) H 01/24/21 04:18 Hgb 12.9 gm/dl (10.1-14.3) 01/24/21 04:18 Hgb Comment See scanned result 10/04/20 Unknown Hct 39.1 % (30.3-42.9) 01/24/21 04:18 MCV 75 fl (79-97) L 01/24/21 04:18 MCH 25 pg (28-32) L 01/24/21 04:18 MCHC 33 % (30-34) 01/24/21 04:18 RDW 14.0 % (13.2-15.2) 01/24/21 04:18 Plt Count 272 K/mm3 (140-440) 01/24/21 04:18 Lymph % (Auto) 27.2 % (13.4-35.0) 01/24/21 04:18 [place] % (Auto) 11.8 % (0.0-7.3) H 01/24/21 04:18 Eos % (Auto) 1.6 % (0.0-4.3) 01/24/21 04:18 Baso % (Auto) 0.5 % (0.0-1.8) 01/24/21 04:18 Lymph # (Auto) 2.0 K/mm3 (1.2-5.4) 01/24/21 04:18 [place] # (Auto) 0.9 K/mm3 (0.0-0.8) H 01/24/21 04:18 Eos # (Auto) 0.1 K/mm3 (0.0-0.4) 01/24/21 04:18 Baso # (Auto) 0.0 K/mm3 (0.0-0.1) 01/24/21 04:18 Add Manual Diff Complete 12/10/20 09:37 Total Counted 100 12/10/20 09:37 Seg Neutrophils % 58.9 % (40.0-70.0) 01/24/21 04:18 Seg Neuts % (Manual) 81.0 % (40.0-70.0) H 12/10/20 09:37 Band Neutrophils % 2.0 % 10/15/20 05:50 Lymphocytes % (Manual) 17.0 % (13.4-35.0) 12/10/20 09:37 Reactive Lymphs % (Man) 1.0 % 10/02/20 12:18 Monocytes % (Manual) 2.0 % (0.0-7.3) 12/10/20 09:37 Eosinophils % (Manual) 1.0 % (0.0-4.3) 10/29/20 07:56 Myelocytes % 2.0 % 10/02/20 13:05 Metamyelocytes % 1.0 % 10/14/20 04:00 Nucleated RBC % Not Reportable 12/10/20 09:37 Seg Neutrophils # 4.3 K/mm3 (1.8-7.7) 01/24/21 04:18 Seg Neutrophils # Man 10.1 K/mm3 (1.8-7.7) H 12/10/20 09:37 Band Neutrophils # 0.0 K/mm3 12/10/20 09:37 Lymphocytes # (Manual) 2.1 K/mm3 (1.2-5.4) 12/10/20 09:37 Abs React Lymphs (Man) 0.0 K/mm3 12/10/20 09:37 Monocytes # (Manual) 0.3 K/mm3 (0.0-0.8) 12/10/20 09:37 Eosinophils # (Manual) 0.0 K/mm3 (0.0-0.4) 12/10/20 09:37 Basophils # (Manual) 0.0 K/mm3 (0.0-0.1) 12/10/20 09:37 Metamyelocytes # 0.0 K/mm3 12/10/20 09:37 Myelocytes # 0.0 K/mm3 12/10/20 09:37 Promyelocytes # 0.0 K/mm3 12/10/20 09:37 Blast Cells # 0.0 K/mm3 12/10/20 09:37 WBC Morphology Not Reportable 12/10/20 09:37 Hypersegmented Neuts Not Reportable 12/10/20 09:37 Hyposegmented Neuts Not Reportable 12/10/20 09:37 Hypogranular Neuts Not Reportable 12/10/20 09:37 Smudge Cells Not Reportable 12/10/20 09:37 Toxic Granulation Not Reportable 12/10/20 09:37 Toxic Vacuolation Not Reportable 12/10/20 09:37 Dohle Bodies Not Reportable 12/10/20 09:37 Pelger-Huet Anomaly Not Reportable 12/10/20 09:37 Ester Rods Not Reportable 12/10/20 09:37 Platelet Estimate Consistent w auto 12/10/20 09:37 Clumped Platelets Not Reportable 12/10/20 09:37 Plt Clumps, EDTA Not Reportable 12/10/20 09:37 Large Platelets Not Reportable 12/10/20 09:37 Giant Platelets Not Reportable 12/10/20 09:37 Platelet Satelliting Not Reportable 12/10/20 09:37 Plt Morphology Comment Not Reportable 12/10/20 09:37 RBC Morphology Normal 12/10/20 09:37 Dimorphic RBCs Not Reportable 12/10/20 09:37 Polychromasia Not Reportable 12/10/20 09:37 Hypochromasia 1+ 12/10/20 09:37 Poikilocytosis Not Reportable 12/10/20 09:37 Anisocytosis Not Reportable 12/10/20 09:37 Microcytosis Not Reportable 12/10/20 09:37 Macrocytosis Not Reportable 12/10/20 09:37 Spherocytes Not Reportable 12/10/20 09:37 Pappenheimer Bodies Not Reportable 12/10/20 09:37 Sickle Cells Not Reportable 12/10/20 09:37 Target Cells Not Reportable 12/10/20 09:37 Tear Drop Cells Not Reportable 12/10/20 09:37 Ovalocytes Not Reportable 12/10/20 09:37 Stomatocytes Few 10/14/20 04:00 Helmet Cells Not Reportable 12/10/20 09:37 [place] Bodies Not Reportable 12/10/20 09:37 [place] Rings Not Reportable 12/10/20 09:37 [place] Cells Not Reportable 12/10/20 09:37 Bite Cells Not Reportable 12/10/20 09:37 Crenated Cell Not Reportable 12/10/20 09:37 Elliptocytes Not Reportable 12/10/20 09:37 Acanthocytes (Spur) Not Reportable 12/10/20 09:37 Rouleaux Not Reportable 12/10/20 09:37 Hemoglobin C Crystals Not Reportable 12/10/20 09:37 Schistocytes Not Reportable 12/10/20 09:37 Malaria parasites Not Reportable 12/10/20 09:37 Sickle Cell Solubility See scanned result 10/04/20 Unknown Hemoglobin A See scanned result 10/04/20 Unknown Hemoglobin A2 See scanned result 10/04/20 Unknown Hemoglobin A2 Prime See scanned result 10/04/20 Unknown Hemoglobin C See scanned result 10/04/20 Unknown Hemoglobin D See scanned result 10/04/20 Unknown Hemoglobin E See scanned result 10/04/20 Unknown Hgb F Diffential Stain See scanned result 10/04/20 Unknown Hemoglobin F Quant See scanned result 10/04/20 Unknown Hemoglobin G See scanned result 10/04/20 Unknown Hemoglobin S See scanned result 10/04/20 Unknown Hemoglobin O-[place] See scanned result 10/04/20 Unknown Hemoglobin [place] See scanned result 10/04/20 Unknown Hemoglobin Analilia See scanned result 10/04/20 Unknown Variant Hemoglobin See scanned result 10/04/20 Unknown Abnorm Hgb IEF Confirm See scanned result 10/04/20 Unknown Hemoglobin Interpret See scanned result 10/04/20 Unknown Hemoglobinopathy Note See scanned result 10/04/20 Unknown Sharad Bodies Not Reportable 12/10/20 09:37 Hem Pathologist Commnt No 12/10/20 09:37 PT 13.6 Sec. (12.2-14.9) 10/21/20 13:54 INR 1.06 (0.87-1.13) 10/21/20 13:54 APTT 31.6 Sec. (24.2-36.6) 10/03/20 00:40 Fibrinogen 336 mg/dl (211-480) 10/04/20 10:00 D-Dimer 1974.47 ng/mlDDU (0-234) H 11/11/20 13:50 ABG pH 7.459 pH Units (7.350-7.450) H 10/26/20 10:30 POC ABG pCO2 20.7 mmHg (32.0-48.0) L 10/13/20 07:18 ABG pCO2 32.4 mm Hg 10/26/20 10:30 POC ABG pO2 137.9 mmHg (83-108) H 10/13/20 07:18 ABG pO2 112.2 mm Hg (80.0-90.0) H 10/26/20 10:30 POC ABG HCO3 14.8 10/13/20 07:18 ABG HCO3 22.5 mmol/L (20.0-26.0) 10/26/20 10:30 ABG O2 Saturation 98.2 % (95.0-99.0) 10/26/20 10:30 ABG O2 Content 18.5 (0.0-44) 10/26/20 10:30 POC ABG Base Excess -6.9 10/13/20 07:18 ABG Base Excess -0.6 mmol/L (-2.0-3.0) 10/26/20 10:30 ABG Hemoglobin 13.5 gm/dl (12.0-16.0) 10/26/20 10:30 ABG Oxyhemoglobin 98.3 (94-98) H 10/13/20 07:18 ABG Carboxyhemoglobin 1.3 % (0.0-5.0) 10/26/20 10:30 ABG Methemoglobin 0.5 % (0.0-1.5) 10/26/20 10:30 ABG Sodium 135.9 mmol/L (136.0-145.0) L 10/13/20 07:18 ABG Potassium 3.7 mmol/L (3.40-4.50) 10/13/20 07:18 ABG Chloride 111.0 mmol/L (98-107) H 10/13/20 07:18 ABG Glucose 109 mg/dL (65-95) H 10/13/20 07:18 VBG pH 6.949 (7.320-7.420) L* 10/02/20 Unknown Oxyhemoglobin 96.5 % (95.0-99.0) 10/26/20 10:30 Carboxyhemoglobin 0.3 (0.5-1.5) L 10/13/20 07:18 FiO2 25 % 10/26/20 10:30 Sodium 138 mmol/L (137-145) 01/24/21 04:18 Potassium 4.4 mmol/L (3.6-5.0) 01/24/21 04:18 Chloride 101.8 mmol/L (98-107) 01/24/21 04:18 Carbon Dioxide 24 mmol/L (22-30) 01/24/21 04:18 Anion Gap 17 mmol/L 01/24/21 04:18 BUN 10 mg/dL (7-17) 01/24/21 04:18 Creatinine 0.6 mg/dL (0.6-1.2) 01/24/21 04:18 Estimated GFR > 60 ml/min 01/24/21 04:18 BUN/Creatinine Ratio 17 % 01/24/21 04:18 Glucose 97 mg/dL (65-100) 01/24/21 04:18 POC Glucose 106 mg/dL (70-105) H 01/25/21 00:29 Random Insulin 43.2 uIU/mL (<=19.6) H 11/02/20 19:19 Proinsulin See scanned result 11/02/20 19:19 C-Peptide 6.23 ng/mL (0.80-3.85) H 11/02/20 19:19 Lactic Acid 1.90 mmol/L (0.7-2.0) 10/04/20 22:00 Uric Acid 7.5 mg/dL (3.5-7.6) 10/02/20 13:05 Calcium 9.5 mg/dL (8.4-10.2) 01/24/21 04:18 Ionized Calcium 4.4 mg/dL (4.8-5.6) L 10/07/20 21:00 Phosphorus 4.60 mg/dL (2.5-4.5) H 11/13/20 10:05 Magnesium 2.10 mg/dL (1.7-2.3) 11/13/20 10:05 Total Bilirubin 0.30 mg/dL (0.1-1.2) 01/24/21 04:18 AST 31 units/L (5-40) 01/24/21 04:18 ALT 21 units/L (7-56) 01/24/21 04:18 Alkaline Phosphatase 92 units/L (35-129) 01/24/21 04:18 Lactate Dehydrogenase 769 units/L (91-180) H 10/02/20 13:05 C-Reactive Protein 0.70 mg/dL (0.00-1.30) 11/11/20 13:50 NT-Pro-B Natriuret Pep 2788 pg/mL (0-450) H 10/04/20 10:00 Total Protein 7.7 g/dL (6.3-8.2) 01/24/21 04:18 Albumin 3.7 g/dL (3.9-5) L 01/24/21 04:18 Albumin/Globulin Ratio 0.9 % 01/24/21 04:18 Procalcitonin < 0.05 ng/mL (<0.15) 12/27/20 20:16 Arterial Blood Glucose 109 mg/dL (65-95) H 10/13/20 07:18 Arterial Blood Ionized Calcium 4.6 mg/dL (4.6-5.3) 10/13/20 07:18 Urine Color Yellow (Yellow) 01/18/21 08:47 Urine Turbidity Slightly-cloudy (Clear) 01/18/21 08:47 Urine pH 8.0 (5.0-7.0) H 01/18/21 08:47 Ur Specific [place] 1.009 (1.003-1.030) 01/18/21 08:47 Urine Protein <15 mg/dl mg/dL (Negative) 01/18/21 08:47 Urine Glucose (UA) Neg mg/dL (Negative) 01/18/21 08:47 Urine Ketones Neg mg/dL (Negative) 01/18/21 08:47 Urine Blood Neg (Negative) 01/18/21 08:47 Urine Nitrite Neg (Negative) 01/18/21 08:47 Urine Bilirubin Neg (Negative) 01/18/21 08:47 Urine Urobilinogen < 2.0 mg/dL (<2.0) 01/18/21 08:47 Ur Leukocyte Esterase Neg (Negative) 01/18/21 08:47 Urine WBC (Auto) 1.0 /HPF (0.0-6.0) 01/18/21 08:47 Urine RBC (Auto) 1.0 /HPF (0.0-6.0) 01/18/21 08:47 U Epithel Cells (Auto) 1.0 /HPF (0-13.0) 01/18/21 08:47 Urine Bacteria (Auto) 1+ /HPF (Negative) 01/18/21 08:47 Urine WBC Clumps 3+ /HPF 11/11/20 13:50 Calcium Oxalate Crystal Few 11/11/20 13:50 Urine Mucus 3+ /HPF 12/27/20 22:25 Urine Yeast (Budding) 2+ /HPF 12/10/20 09:25 Vancomycin Trough 12.6 ug/mL (5.0-20.0) 10/21/20 13:54 Random Vancomycin 10.7 ug/mL (0-40.0) 10/16/20 13:09 Phenytoin 5.7 ug/mL (10.0-20.0) L 10/13/20 07:00 C. difficile Tox (PCR) Positive (Negative) 10/16/20 10:22 Coronavirus (PCR) Negative (Negative) 10/08/20 14:15 Blood Type O POSITIVE 10/02/20 12:50 Antibody Screen Negative 10/02/20 12:50 Crossmatch See Detail 10/02/20 12:50 - Diagnostic Impressions Diagnostic Impressions: Echocardiogram 10/03/20 13:42 Transthoracic Echocardiogram Indication: S/P Cardiac Arrest R/O Cardiomyopathy BP: 133/71 Conclusions *Global left ventricular systolic function is normal. *The estimated ejection fraction is 60-65%. *There is trace of mitral regurgitation. *The right 0heart chambers are both slightly dilated. *There is mild tricuspid regurgitation. *There is mild-moderate pulmonary hypertension. *The right ventricular systolic pressure is calculated at 44 mmHg. *The study quality is technically difficult. Findings Procedure Info: The study quality is technically difficult. The study is technically limited due to patient body habitus. The study was technically limited due to the patient's inability to lay in the left lateral decubitus position. Left Ventricle: The left ventricular chamber size is normal. There is no left ventricular hypertrophy. Global left ventricular systolic function is normal. The estimated ejection fraction is 60-65%. Left Atrium: The left atrial chamber size is normal. Right Ventricle: The right ventricle is slightly dilated. Right Atrium: The right atrium is mildly dilated. Aortic Valve: The aortic valve leaflets are mildly thickened. There is no evidence of aortic regurgitation. There is no evidence of aortic stenosis. Mitral Valve: The mitral valve leaflets are mildly thickened. There is trace of mitral regurgitation. There is no evidence of mitral stenosis. Tricuspid Valve: There is mild tricuspid regurgitation. The right ventricular systolic pressure is calculated at 44 mmHg. There is evidence of mild pulmonary hypertension. Pulmonic Valve: There is trace pulmonic regurgitation. Pericardium: There is no pericardial effusion. Aorta: There is no dilatation of the ascending aorta. There is no dilatation of the aortic root. Venous: The inferior vena cava is dilated. Measurements Chambers 2D Name Value Normal Range IVSd (2D) 1 cm (0.6 - 1.1) LVPWd (2D) 1.01 cm (0.6 - 1.1) LVIDd (2D) 4.58 cm (3.7 - 5.6) LVIDs (2D) 3.17 cm (2 - 3.8) LV FS (2D) 30.93 % - EF Teichholz (2D) 58.66 % - Ao root diameter (2D) 2.94 cm (2 - 3.7) Volumes/Mass Name Value Normal Range LA ESV SP 4CH (A/L) 72.82 ml - LA ESV SP 2CH (A/L) 66.86 ml - LA ESV BP (A/L) 74.49 ml - LA ESV SP 4CH (MOD) 71.03 ml - LA ESV SP 2CH (MOD) 64.3 ml - LV EDV SP 4CH (MOD) 98.82 ml - LV ESV SP 4CH (MOD) 24.8 ml - EF SP 4CH (MOD) 74.9 % - LV EDV SP 2CH (MOD) 86.1 ml - LV ESV SP 2CH (MOD) 36.93 ml - EF SP 2CH (MOD) 57.11 % - LV EDV BP 94.4 ml - LV ESV BP 32.66 ml - BP EF (MOD) 65.4 % - Diastolic/Systolic Function Name Value Normal Range MV E-wave Vmax 1.04 m/sec - MV deceleration time 160.46 msec - MV A-wave Vmax 0.92 m/sec - MV E:A ratio 1.14 ratio - Aortic Valve Name Value Normal Range AV Vmax 2.12 m/sec - AV VTI 22.37 cm - AV peak gradient 17.95 mmHg - AV mean gradient 7.29 mmHg - LVOT diameter 2.01 cm - LVOT Vmax 1.8 m/sec - LVOT VTI 27.17 cm - LVOT peak gradient 12.91 mmHg - LVOT mean gradient 6.83 mmHg - SV LVOT 86.42 ml - ANITA (continuity Vmax) 2.7 cm2 - ANITA (continuity VTI) 3.86 cm2 - Ascending Ao 3.18 cm - Tricuspid Valve Name Value Normal Range TV E-wave Vmax 0.88 m/sec - TR Vmax 3.01 m/sec - TR peak gradient 36.27 mmHg - RAP 8 mmHg - RVSP 44 mmHg - IVC diameter 2.65 cm (1.2 - 2.3) Pulmonic Valve/Qp:Qs Name Value Normal Range PV Vmax 1.22 m/sec - PV peak gradient 5.91 mmHg - RVOT Vmax 0.87 m/sec - RVOT VTI 13.32 cm - RVOT peak gradient 3 mmHg - PV acceleration time 110.37 msec - Hamlin/IV: Voiding Method External Female Catheter IV Catheter Type [Right Foot] INT / Saline Lock IV Catheter Type [Left Forearm Peripheral IV ] IV Catheter Type [Left Wrist] INT / Saline Lock IV Catheter Type [Right Hand] INT / Saline Lock IV Catheter Type [Right INT / Saline Lock Antecubital] IV Catheter Type [Right Upper Mid-line arm] IV Catheter Type [Left Triple Lumen Cath Internal Jugular] IV Catheter Type [Left Hand] Peripheral IV IV Catheter Type [Left Peripheral IV Antecubital] Active Medications - Current Medications Current Medications: Generic Name Dose Route Start Last Admin Trade Name Freq PRN Reason Stop Dose Admin Acetaminophen 650 mg 10/05/20 16:34 01/25/21 05:25 Acetaminophen 325 Mg/10.15 Ml Oral Liqd Unit Dose FEEDTUBE 650 mg Q6H PRN Administration Non Cardiac Pain or Temp>100.5 Albuterol 2.5 mg 11/05/20 13:03 11/06/20 13:04 Albuterol 2.5 Mg/3 Ml Nebu IH 2.5 mg Q4HRT PRN Administration Shortness Of Breath Alprazolam 0.25 mg 01/20/21 13:33 01/25/21 01:41 Alprazolam 0.25 Mg Tab PO 0.25 mg Q8H PRN Administration Anxiety Lipase/Protease/Amylase 1 each 10/05/20 11:09 Lipase 10,500/Protease 25,000/Amylase 43,750 (Units) Dr Barakat FEEDTUBE PRN PRN For Clogged Feeding Tube Enoxaparin Sodium 40 mg 10/22/20 10:00 01/24/21 11:00 Enoxaparin 40 Mg/0.4 Ml Inj SUB-Q 40 mg DAILY ERINN Administration Protocol Famotidine 20 mg 10/07/20 10:00 01/24/21 21:29 Famotidine 20 Mg Tab PO 20 mg BID ERINN Administration Hydralazine HCl 20 mg 10/07/20 11:49 10/17/20 07:20 Hydralazine 20 Mg/1 Ml Inj IV 20 mg Q6H PRN Administration SBP >170 Hydrophilic Ointment 1 applic 01/03/21 13:00 Lip Therapy Vaseline TP DIRECT PRN Dry Lips Dextrose 1,000 mls @ 30 mls/hr 01/03/21 12:00 01/25/21 05:32 D5w IV 75 mls/hr DIRECT ERINN Administration Metoprolol Tartrate 25 mg 01/08/21 22:00 01/24/21 21:29 Metoprolol Tartrate 25 Mg Tab PO 25 mg BID ERINN Administration Morphine Sulfate 2 mg 01/20/21 13:33 Morphine 2 Mg/1 Ml Inj IV Q4H PRN Pain, Moderate (4-6) Polyethylene Glycol 17 gm 12/27/20 15:07 12/28/20 10:05 Polyethylene Glycol 3350 17 Gm Powder PO 17 gm QDAY PRN Administration Constipation Simple Syrup 15 ml 10/05/20 11:09 Simple Syrup 15 Ml FEEDTUBE PRN PRN Hypoglycemia Simple Syrup 30 ml 10/05/20 11:09 Simple Syrup 15 Ml FEEDTUBE PRN PRN Hypoglycemia Sodium Bicarbonate 325 mg 10/05/20 11:09 12/16/20 08:19 Sodium Bicarbonate 325 Mg Tab FEEDTUBE 325 mg PRN PRN Administration For Clogged Feeding Tube Nutrition/Malnutrition Assess - Dietary Evaluation Nutrition/Malnutrition Findings: Nutrition Notes Start: 10/04/20 11:13 Freq: Status: Active Protocol: Document 01/25/21 09:23 (Rec: 01/25/21 09:28 [email or web address]) Nutrition Notes Initial or Follow up Reassessment Current Diagnosis Respiratory Failure Other Pertinent Diagnosis s/p cardiac arrest x 2, anoxic brain injury Current Diet TF - Jevity 1.2 at 60ml/hr Labs/Tests Reviewed Pertinent Medications D5w at 75 ml/hr Height 5 ft 8 in Weight 96.8 kg Peck Body Weight (kg) 63.63 BMI 32.4 Weight Status Obese Subjective/Other Information FU for stable TF. Per chart, pt with new pressure ulcer wound. Will change TF to meet protein needs. Percent of energy/protein needs met: 100%/100% Burn Absent Trauma Absent GI Symptoms None Difficulty In Swallowing,Chewing Food Allergy Yes Current % PO Negligible Minimum of two criteria Yes Interpretation of Weight Loss (severe) >2% in 1 week Fluid Accumulation Mild (non-severe) #2 Nutrition Diagnosis Malnutrition Diagnosis Progress(for reassessment Continues documentation) #1 Nutrition Diagnosis Inadequate oral intake Diagnosis Progress(for reassessment Continues documentation) Is patient on ventilator? No Is Patient Ambulatory and/or Out of Bed No REE-([facility]-confined to bed) 2073.708 Kcal/Kg value to use for calculation 16 Approximate Energy Requirements Using 1549 kcal/Kg Calculation Used for Recommendations [facility] Additional Notes Pro needs 1.25-1.5 g/kg adjBW: 100-120g/day Fluid needs 1ml/kcal Nutrition Intervention Change Diet Order: Change TF Nutrition Support: Promote at 65 ml/hr Flush 50 ml q4h Kcal 1,560 Protein (gm) 98 Fluid (mL) 1,309 Goal #1 TF tolerance Goal #2 TF to meet at least 75% energy and pro needs Follow-Up By: 01/27/21 Additional Comments FU for new TF tolerance
--- NOTE | 2021-01-25 10:05 | XRay Report ---
XR chest 1V ap INDICATION / CLINICAL INFORMATION: Fever. COMPARISON: 01/18/2021 FINDINGS: SUPPORT DEVICES: Tracheostomy device projects in stable position. HEART /PULMONARY VASCULATURE: No significant abnormality. LUNGS / PLEURA: No significant pulmonary or pleural abnormality. No pneumothorax. ADDITIONAL FINDINGS: No significant additional findings. IMPRESSION: 1. No acute findings. Signer Name: Florian Sanchez MD Signed: 01/25/2021 10:00 AM Workstation Name: [employer]
[2021-01-25] MEDS: CEFEPIME/NS 2 GM/100 ML 2 GM/100 ML BAG IV SCH ×2 (12:42→20:25)
[2021-01-25] MEDS: ENOXAPARIN 40 MG/0.4 ML INJ SUB-Q SCH (12:45)
[2021-01-25] MEDS: FAMOTIDINE 20 MG TAB PO SCH ×2 (12:46→21:51)
[2021-01-25] MEDS: METOPROLOL TARTRATE 25 MG TAB PO SCH ×2 (12:47→22:06)
[2021-01-25 20:49] LABS: Bilirubin,Urine NEG (Negative); Blood,Urine NEG (Negative); Color,Urine Yellow (Yellow); Mucus,Urine FEW /HPF; Protein,Urine <15 mg/dL mg/dL (Negative); Urobilinogen,Urine < 2.0 mg/dL (<2.0)
[2021-01-26] MEDS: CEFEPIME/NS 2 GM/100 ML 2 GM/100 ML BAG IV SCH ×3 (02:15→17:20)
[2021-01-26] MEDS: FAMOTIDINE 20 MG TAB PO SCH ×2 (09:27→21:35)
[2021-01-26] MEDS: METOPROLOL TARTRATE 25 MG TAB PO SCH ×2 (09:27→21:35)
[2021-01-26] MEDS: ENOXAPARIN 40 MG/0.4 ML INJ SUB-Q SCH (09:27)
[2021-01-26] MEDS: DEXTROSE 5% IN WATER 1,000 ML IV SCH (09:29)
--- NOTE | 2021-01-26 14:57 | Progress Note ---
Assessment and Plan --DIC (disseminated intravascular coagulation) vs HELLP syndrome Resolved --Possible Eclampsia/HELLP Syndrome Resolved --s/p Cardiac arrest x2 on admission and on 10/07 ACLS protocol followed by revival Echo showed preserved Ef --Anoxic brain injury, Developed following cardiac arrest, continue supportive care --Shock-resolved now awaiting placement s/p pressor support --ADOLPH-resolved Stable --Sepsis 2/2 UTI s/p cefepime to cover possible pseudomonas as sputum is also growing GN rods till 01/04/21 Previous urine culture grew pansensitive ecoli --Hypernatremia, resolved, cont free water with TF --DVT prophylaxis Patient presented with DIC No anticoagulants Overall prognosis extremely poor. Brief history 30 year old -[place] Citizen female CHE 10/25/20 at 36w5d who presents with seizures in triage on 10/02/20. Pt was not able to provide history but per pt's , she presented to the hospital to return a 24 hour urine specimen for analysis. She then suddenly reported that she did not feel good. She was taken to labor and delivery and shortly after arrival, she began seizing. During this time, a code met was called because the patient became hypoxic. She was then noted to be without a pulse. Chest compressions were started immediately, and the patient was emergently taken to the operating room for delivery of the fetus. Off note, This patient has had care at [facility] with comanagement by [facility] since 11 wks complicated by ADHD, morbid obesity, generalized anxiety disorder, panic attacks, chronic narcotic use, fibromyalgia, GERD, Irritable Bowel Syndrome, Migraines, h/o endometrial ablation and ovarian vein embolization, genital herpes, insomnia, LGA fetus, nausea and vomiting, polyhydramnios, quad screen positive for Down's Syndrome, and previous x 3. She was GBS negative. Daily clinical course 10/02/21 11:30: Pt brought to L&D triage for evaluation of possible labor. Pt accompanied by her spouse. Pt spouse poor historian; unable to obtain history- allergies at this time. Pt taken from registration to triage area via WC. Pt unresponsive, actively seizing with snorous respirations. crusherKassy, called and requesting assistance. 11:35: Multiple staff at bedside. Pt 02 sat 67% on nonrebreather, unable to read BP at this time. Yifan Theodore CRNA, at bedside for intubation and assistance with IV insertion. INT attempt by multiple RNs unsuccessful at this time. 11:42: Pt being bagged by KORIN, 02% 79%. No pulse palpated, compressions started at this time; bharati young called and Dr. Newberry preparing OR for emergent c/s. 11:44: Continued compressions on stretcher while transporting pt to OR 1. Pt being bagged with jaw thrust manuever in place by KORIN Stringer student. 11:45: Arrival to OR 1. Dr. Newberry and Dr. Portillo present for emergent c/s. Code team arrived for continued care. patient revived and c/s done Patient has been bleeding from C/s site followed by supracervical hysterectomy for severe bleeding Patient transfused multiple units of PRBC, Patient in DIC. Transferred to the ICU 10/03. Patient seen and examined at bedside this morning. Patient is nonresponsive and mechanically ventilated. On pressors. Labs reviewed-has leukocytosis, anemia, thrombocytopenia, ADOLPH and lactic acidosis. Started on IV antibiotics to cover possible sepsis secondary to DIC. Hematology oncology recommendations appreciated-needs additional cryoprecipitate and FFP. Monitor D-dimer, fibrinogen and frequent labs. Nephrology consulted for lactic acidosis and ADOLPH. 10/04. Remains mechanically ventilated. Henley antibiotics. Labs shows improved acidosis - lactic acid 3.5. Hb drop noted. Getting transfused 2 units PRBCs. Platelet count is ~40k. Continue to monitor labs closely. Critical care team on board. 10/05; xray reviewed, concerning for multifocal infilrate, likely underlying Pn eumonia, will add ID consult to assist with management of this critically ill patient, start tube feed, closely monitor renal system 10/06: Resumed care, remains on mechanical ventilation. No active bleeding, H&H stable. Continue to monitor CBC and BMP. Continue IV antibiotic for underlying pneumonia. Follow critical care and ID recommendation. 10/07: Remains on mechanical ventilation. No active bleeding, H&H stable. Critical care following, wean off ventilation as tolerated. 10/08: Patient had another cardiac arrest last night. Remains on mechanical ventilation, update family. Continue supportive care -poor prognosis 10/09: Called patient mother and discussed about patient care and management. Answered all question to best of my knowledge and family satisfaction. Patient remains on mechanical ventilation, cardiac arrest x2 so far. Critically sick, poor prognosis 10/10: remains on mechanical ventilation. h/h stable, no active bleeding. monitor CBC/BMP 10/11: WBC trended up with diarrhea, started on vancomycin po. remains on MV, off pressor, tolerating TF 10/12: remains on MV, off pressor, tolerating TF. called family for update but unable to reach, could not leave message as it was full. cont supportive care, wean off vent as tolerated. 10/13/2020; patient is on mechanical ventilation, tolerating tube feeding. Patient has labored breathing. Neuro was consulted and recommend MRI. Patient is on Precedex. Rectal tube in place. 10/14/2020; patient is on mechanical ventilation, Precedex. Patient had fever and blood culture ordered. Patient is on IV vancomycin per ID recommendation. Neuro consulted and recommend MRI. Continue to monitor. Prognosis is guarded. 10/15/2020; patient is on mechanical ventilation, Precedex. Patient had fever and blood culture ordered. Patient is on IV vancomycin per ID recommendation. Neuro consulted and recommend MRI. Continue to monitor. Prognosis is guarded. 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 12/06/20; anoxic brain injury. Awaiting placement. 12/07/2020; anoxic brain injury, awaiting placement. 12/09/2020; anoxic brain injury, awaiting placement. 12/10/2020; patient had episodes of fever overnight. CBC, BMP, blood culture, UA and chest x-ray ordered, will follow and manage accordingly. Urinalysis is suggestive of UTI and I put the patient on ceftriaxone, order urine culture. Chest x-ray is normal. 12/11/2020; patient is on ceftriaxone day 2 for UTI. We will continue to follow urine culture. 12/12/2020. Day #3 of Rocephin for UTI. We will continue for 2 more days while she is here. Present UTI. 12/13/2020. Day #4 of Rocephin for UTI. Patient remains on 50% with tracheos serafin. Remains unresponsive with evidence of anoxic encephalopathy unable to make needs known. 12/14/2020. Day #5 of Rocephin for UTI completed today. Remains encephalopathic unable to make needs known. Remains on 50% unable to decrease oxygen via tracheostomy. Overall prognosis remains extremely poor. 12/15: Continue to monitor. Stop and monitor antibiotics at this time. Continue to wean oxygen as tolerated. Wean oxygen as tolerated. Case management working on placement. 12/16: Continue supportive care aspiration precautions. Awaiting placement discussion. Monitor fever curve. Prognosis remains poor no evidence of neurological recovery as of today 12/17: Continue supportive care, check labs and chest xray. Still monitor off antibiotics. Monitor Sodium level 12/18: Patient remains with intermittent low grade fever, reviewed EEG from September again, consistent for Ischemic Hypoxic Encephalopathy, patient with decorticating posturing type presentation. Will discuss with visual design lead to op timize diet so we can discontinue D5. CXR with no abnormality. Discussed extensively with the nursing staff at bedside CXR IMPRESSION: 1. No acute findings. 12/19: No clinical change 12/20: No clinical change, now off abx, monitor, discussed her medications with our pharmacist I believe that her posture and rigidity is likely from underlying anoxic encephalopathy. Continue to monitor and await placement decision. Continue aggressive suctioning. Plan discussed in detail with the nursing staff 12/21: Continue supportive care. Will give 500 cc bolus of fluid today to replace insensible losses. Tachycardia appears to be improving. Blood pressure precludes adjusting cardiac meds. Still awaiting placement from case management. Plan discussed in detail with the nursing staff 12/22. Continue support supportive care. Tracheostomy and PEG in place. Remains nonresponsive. Awaiting placement. 12/23. Continue support supportive care. Tracheostomy and PEG in place. Remains nonresponsive. Awaiting placement. Remains tachycardic. Decrease dose of lasix. Will try low dose metoprolol. Monitor BP closely 12/24. Continue support supportive care. Tracheostomy and PEG in place. Remains nonresponsive. Awaiting placement. Heart rate slightly better. Continue to monitor BP closely 12/25. Continue support supportive care. Tracheostomy and PEG in place. Remains nonresponsive. Awaiting placement. 12/26. Continue support supportive care. Tracheostomy and PEG in place. Remains nonresponsive. Awaiting placement 12/27. Continue support supportive care. Tracheostomy and PEG in place. Remains nonresponsive. Awaiting placement 12/28. Had fever yesterday. Blood culture drawn. UA - UTI - started on antibiotics. Now tracheal aspirate is growing GN rods. 12/29: Continue IV antibiotics, continue supportive care. Since admission patient has shown minimal or no chance of neurological recovery. Need 24/7 assistance. Currently on trach and PEG, nonverbal. Waiting on SNF placement. Discussed with patient case manager today. 12/30: Continue IV antibiotics for UTI, continue supportive care. Pending placement 12/31: continue supportive care. continue supportive care. Pending placement 01/01: continue supportive care. Pending placement. cont Iv abx for UTI till 01/04 01/02: Continue supportive care, pending placement. Sodium level slightly elevated, will start hypotonic fluid. Continue antibiotics till 01/04 01/03; cont hypotonic fluid, increase free water with TF for hypernatremia, follow BMP. cont supportive care. pending placement. cont cefepime. recx blood 01/04: resolved hyponatremia, cont supportive care, pending placement. Last day of supplement today. 01/05: Continue supportive care, pending placement. Monitor H&H and fever curve off antibiotic. 01/06; monitor off abx, suction as needed, Continue supportive care, pending placement. 01/07: Discharge pending on placement, vitals stable. Continue supportive care 01/08: Discharge pending on placement, vitals stable. Continue supportive care. stop lasix, increase metoprolol to 25mg BID for ST. 01/09 patient resting with eyes closed. Opens eyes to tactile stimulus, has a blink reflex, does not follow simple commands, has a T-collar / G-tube Lab results reviewed, low-grade fever, 01/10 Eyes open, does not follow simple commands, no acute events overnight 01/11 no acute events overnight, Waiting for placement 01/12 No acute events overnight. Patient awaiting for placement 01/13. No new issues. Awaiting placement 01/14. No new issues. Awaiting placement. 01/15. No new issues. Awaiting placement. 01/16. No new issues. Patient remain stable. Awaiting placement. Check maintenance labs. 01/17. Routine maintenance labs were ordered and are still pending. Await placement. 01/18. Patient with low-grade fever past 24-48 hrs. WBC within normal limits. Check chest x-ray, urinalysis and consider blood cultures. Continue tracheostomy care, secretion control and airway management. Patient currently with PEG and tube feedings at 60 cc an hour. Nutritional support and aspiration precautions. 01/19. Temperature 100.7 overnight. Continue to monitor closely. Continue tracheostomy care, secretion control and airway management. Patient currently with PEG and tube feedings at 60 cc an hour. Nutritional support and aspiration precautions. 01/20. Continue to monitor closely. Continue tracheostomy care, secretion control and airway management. Patient currently with PEG and tube feedings at 60 cc an hour. Nutritional support and aspiration precautions. 01/21. Afebrile overnight. Continue to monitor closely. Continue tracheostomy care, secretion control and airway management. Patient currently with PEG and tube feedings at 60 cc an hour. Nutritional support and aspiration precautions. 01/22. Continue to monitor closely. Continue tracheostomy care, secretion control and airway management. Patient currently with PEG and tube feedings at 60 cc an hour. Nutritional support and aspiration precautions. 01/23. Continue tracheostomy care, secretion control and airway management. Patient currently with PEG and tube feedings at 60 cc an hour. Nutritional support and aspiration precautions. Will get routine labs tomorrow. 01/24. Labs reviewed. No abnormalities. Continue tracheostomy care, secretion control and airway management. Patient currently with PEG and tube feedings at 60 cc an hour. Nutritional support and aspiration precautions. 01/25. Temp 100.6. More sleepy today. Will get chest xray, blood culture, urinalysis, sputum cultures. Will start on empirical abx. 01/26: Vitals noted, slightly tachycardic. Follow culture work-up, continue supportive care. Subjective Date of service: 01/26/21 Principal diagnosis: Eclampsia/HELLP Syndrome, ADOLPH, DIC; s/p , s/p supracervical hyst Interval history: Patient seen and examined. Medical records and medication list reviewed. No acute event overnight noted by the RN. H&H stable, vitals noted Discussed with RN at the bedside Objective - Exam Narrative Exam: vITAL SIGNS: Reviewed. GENERAL: Trach in place HEAD: No signs of head trauma. EYES: Pupils are equal. NECK: No adenopathy, no JVD. CHEST: Diminished breath sounds CARDIAC: normal S1 and S2, without murmurs, gallops, or rubs. ABDOMEN: Soft, non tender and non distended. No rebound or guarding, and no masses palpated. Bowel Sounds normal MUSCULOSKELETAL: No edema NEUROLOGIC EXAM: nonverbal SKIN: No obvious lesions - Constitutional Vitals: Vital Signs - 12hr 01/26/21 01/26/21 01/26/21 03:45 10:00 14:04 Temperature 99.7 F H Pulse Rate 111 H Respiratory 26 H Rate Blood Pressure 113/76 O2 Sat by Pulse 99 99 Oximetry O2 Sat by Pulse 97 Oximetry [ Assessment] - Labs CBC & Chem 7: 01/24/21 04:18 01/24/21 04:18 Labs: Abnormal lab results 01/26/21 Range/Units 05:33 POC Glucose 109 H (70-105) mg/dL HEART Score - HEART Score Age: < 45 Risk factors: 1-2 risk factors - Critical Actions Critical Actions: >7 pts:50-65% risk of adverse cardiac event. Early invasive measures
[2021-01-26] MEDS: ALPRAZolam 0.25 MG TAB PO PRN (18:08)
[2021-01-26] MEDS: ACETAMINOPHEN 325 MG/10.15 ML ORAL LIQD UNIT DOSE FEEDTUBE PRN (22:37)
[2021-01-27] MEDS: CEFEPIME/NS 2 GM/100 ML 2 GM/100 ML BAG IV SCH ×3 (01:18→18:04)
[2021-01-27] MEDS: ENOXAPARIN 40 MG/0.4 ML INJ SUB-Q SCH (10:24)
[2021-01-27] MEDS: METOPROLOL TARTRATE 25 MG TAB PO SCH ×2 (10:24→22:33)
[2021-01-27] MEDS: ACETAMINOPHEN 325 MG/10.15 ML ORAL LIQD UNIT DOSE FEEDTUBE PRN (10:24)
[2021-01-27] MEDS: FAMOTIDINE 20 MG TAB PO SCH ×2 (10:24→22:33)
--- NOTE | 2021-01-27 16:00 | Progress Note ---
Assessment and Plan --DIC (disseminated intravascular coagulation) vs HELLP syndrome Resolved --Possible Eclampsia/HELLP Syndrome Resolved --s/p Cardiac arrest x2 on admission and on 10/07 ACLS protocol followed by revival Echo showed preserved Ef --Anoxic brain injury, Developed following cardiac arrest, continue supportive care --Shock-resolved now awaiting placement s/p pressor support --ADOLPH-resolved Stable --Sepsis 2/2 UTI s/p cefepime to cover possible pseudomonas as sputum is also growing GN rods till 01/04/21 Previous urine culture grew pansensitive ecoli --Hypernatremia, resolved, cont free water with TF --DVT prophylaxis Patient presented with DIC No anticoagulants Overall prognosis extremely poor. Brief history 30 year old -[place] female CHE 10/25/20 at 36w5d who presents with seizures in triage on 10/02/20. Pt was not able to provide history but per pt's , she presented to the hospital to return a 24 hour urine specimen for analysis. She then suddenly reported that she did not feel good. She was taken to labor and delivery and shortly after arrival, she began seizing. During this time, a code met was called because the patient became hypoxic. She was then noted to be without a pulse. Chest compressions were started immediately, and the patient was emergently taken to the operating room for delivery of the fetus. Off note, This patient has had care at [facility] with comanagement by [facility] since 11 wks complicated by ADHD, morbid obesity, generalized anxiety disorder, panic attacks, chronic narcotic use, fibromyalgia, GERD, Irritable Bowel Syndrome, Migraines, h/o endometrial ablation and ovarian vein embolization, genital herpes, insomnia, LGA fetus, nausea and vomiting, polyhydramnios, quad screen positive for Down's Syndrome, and previous x 3. She was GBS negative. Daily clinical course 10/02/21 11:30: Pt brought to L&D triage for evaluation of possible labor. Pt accompanied by her spouse. Pt spouse poor historian; unable to obtain history- allergies at this time. Pt taken from registration to triage area via WC. Pt unresponsive, actively seizing with snorous respirations. toterKassy, called and requesting assistance. 11:35: Multiple staff at bedside. Pt 02 sat 67% on nonrebreather, unable to read BP at this time. Yifan Theodore CRNA, at bedside for intubation and assistance with IV insertion. INT attempt by multiple RNs unsuccessful at this time. 11:42: Pt being bagged by KORIN, 02% 79%. No pulse palpated, compressions started at this time; bharati young called and Dr. Newberry preparing OR for emergent c/s. 11:44: Continued compressions on stretcher while transporting pt to OR 1. Pt being bagged with jaw thrust manuever in place by OKRIN Stringer student. 11:45: Arrival to OR 1. Dr. Newberry and Dr. Portillo present for emergent c/s. Code team arrived for continued care. patient revived and c/s done Patient has been bleeding from C/s site followed by supracervical hysterectomy for severe bleeding Patient transfused multiple units of PRBC, Patient in DIC. Transferred to the ICU 10/03. Patient seen and examined at bedside this morning. Patient is nonresponsive and mechanically ventilated. On pressors. Labs reviewed-has leukocytosis, anemia, thrombocytopenia, ADOLPH and lactic acidosis. Started on IV antibiotics to cover possible sepsis secondary to DIC. Hematology oncology recommendations appreciated-needs additional cryoprecipitate and FFP. Monitor D-dimer, fibrinogen and frequent labs. Nephrology consulted for lactic acidosis and ADOLPH. 10/04. Remains mechanically ventilated. [place] antibiotics. Labs shows improved acidosis - lactic acid 3.5. Hb drop noted. Getting transfused 2 units PRBCs. Platelet count is ~40k. Continue to monitor labs closely. Critical care team on board. 10/05; xray reviewed, concerning for multifocal infilrate, likely underlying Pn eumonia, will add ID consult to assist with management of this critically ill patient, start tube feed, closely monitor renal system 10/06: Resumed care, remains on mechanical ventilation. No active bleeding, H&H stable. Continue to monitor CBC and BMP. Continue IV antibiotic for underlying pneumonia. Follow critical care and ID recommendation. 10/07: Remains on mechanical ventilation. No active bleeding, H&H stable. Critical care following, wean off ventilation as tolerated. 10/08: Patient had another cardiac arrest last night. Remains on mechanical ventilation, update family. Continue supportive care -poor prognosis 10/09: Called patient mother and discussed about patient care and management. Answered all question to best of my knowledge and family satisfaction. Patient remains on mechanical ventilation, cardiac arrest x2 so far. Critically sick, poor prognosis 10/10: remains on mechanical ventilation. h/h stable, no active bleeding. monitor CBC/BMP 10/11: WBC trended up with diarrhea, started on vancomycin po. remains on MV, off pressor, tolerating TF 10/12: remains on MV, off pressor, tolerating TF. called family for update but unable to reach, could not leave message as it was full. cont supportive care, wean off vent as tolerated. 10/13/2020; patient is on mechanical ventilation, tolerating tube feeding. Patient has labored breathing. Neuro was consulted and recommend MRI. Patient is on Precedex. Rectal tube in place. 10/14/2020; patient is on mechanical ventilation, Precedex. Patient had fever and blood culture ordered. Patient is on IV vancomycin per ID recommendation. Neuro consulted and recommend MRI. Continue to monitor. Prognosis is guarded. 10/15/2020; patient is on mechanical ventilation, Precedex. Patient had fever and blood culture ordered. Patient is on IV vancomycin per ID recommendation. Neuro consulted and recommend MRI. Continue to monitor. Prognosis is guarded. 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 12/06/20; anoxic brain injury. Awaiting placement. 12/07/2020; anoxic brain injury, awaiting placement. 12/09/2020; anoxic brain injury, awaiting placement. 12/10/2020; patient had episodes of fever overnight. CBC, BMP, blood culture, UA and chest x-ray ordered, will follow and manage accordingly. Urinalysis is suggestive of UTI and I put the patient on ceftriaxone, order urine culture. Chest x-ray is normal. 12/11/2020; patient is on ceftriaxone day 2 for UTI. We will continue to follow urine culture. 12/12/2020. Day #3 of Rocephin for UTI. We will continue for 2 more days while she is here. Present UTI. 12/13/2020. Day #4 of Rocephin for UTI. Patient remains on 50% with tracheos serafin. Remains unresponsive with evidence of anoxic encephalopathy unable to make needs known. 12/14/2020. Day #5 of Rocephin for UTI completed today. Remains encephalopathic unable to make needs known. Remains on 50% unable to decrease oxygen via tracheostomy. Overall prognosis remains extremely poor. 12/15: Continue to monitor. Stop and monitor antibiotics at this time. Continue to wean oxygen as tolerated. Wean oxygen as tolerated. Case management working on placement. 12/16: Continue supportive care aspiration precautions. Awaiting placement discussion. Monitor fever curve. Prognosis remains poor no evidence of neurological recovery as of today 12/17: Continue supportive care, check labs and chest xray. Still monitor off antibiotics. Monitor Sodium level 12/18: Patient remains with intermittent low grade fever, reviewed EEG from September again, consistent for Ischemic Hypoxic Encephalopathy, patient with decorticating posturing type presentation. Will discuss with woodworking machinist to op timize diet so we can discontinue D5. CXR with no abnormality. Discussed extensively with the nursing staff at bedside CXR IMPRESSION: 1. No acute findings. 12/19: No clinical change 12/20: No clinical change, now off abx, monitor, discussed her medications with our pharmacist I believe that her posture and rigidity is likely from underlying anoxic encephalopathy. Continue to monitor and await placement decision. Continue aggressive suctioning. Plan discussed in detail with the nursing staff 12/21: Continue supportive care. Will give 500 cc bolus of fluid today to replace insensible losses. Tachycardia appears to be improving. Blood pressure precludes adjusting cardiac meds. Still awaiting placement from case management. Plan discussed in detail with the nursing staff 12/22. Continue support supportive care. Tracheostomy and PEG in place. Remains nonresponsive. Awaiting placement. 12/23. Continue support supportive care. Tracheostomy and PEG in place. Remains nonresponsive. Awaiting placement. Remains tachycardic. Decrease dose of lasix. Will try low dose metoprolol. Monitor BP closely 12/24. Continue support supportive care. Tracheostomy and PEG in place. Remains nonresponsive. Awaiting placement. Heart rate slightly better. Continue to monitor BP closely 12/25. Continue support supportive care. Tracheostomy and PEG in place. Remains nonresponsive. Awaiting placement. 12/26. Continue support supportive care. Tracheostomy and PEG in place. Remains nonresponsive. Awaiting placement 12/27. Continue support supportive care. Tracheostomy and PEG in place. Remains nonresponsive. Awaiting placement 12/28. Had fever yesterday. Blood culture drawn. UA - UTI - started on antibiotics. Now tracheal aspirate is growing GN rods. 12/29: Continue IV antibiotics, continue supportive care. Since admission patient has shown minimal or no chance of neurological recovery. Need 24/7 assistance. Currently on trach and PEG, nonverbal. Waiting on SNF placement. Discussed with foster care case manager today. 12/30: Continue IV antibiotics for UTI, continue supportive care. Pending placement 12/31: continue supportive care. continue supportive care. Pending placement 01/01: continue supportive care. Pending placement. cont Iv abx for UTI till 01/04 01/02: Continue supportive care, pending placement. Sodium level slightly elevated, will start hypotonic fluid. Continue antibiotics till 01/04 01/03; cont hypotonic fluid, increase free water with TF for hypernatremia, follow BMP. cont supportive care. pending placement. cont cefepime. recx blood 01/04: resolved hyponatremia, cont supportive care, pending placement. Last day of supplement today. 01/05: Continue supportive care, pending placement. Monitor H&H and fever curve off antibiotic. 01/06; monitor off abx, suction as needed, Continue supportive care, pending placement. 01/07: Discharge pending on placement, vitals stable. Continue supportive care 01/08: Discharge pending on placement, vitals stable. Continue supportive care. stop lasix, increase metoprolol to 25mg BID for ST. 01/09 patient resting with eyes closed. Opens eyes to tactile stimulus, has a blink reflex, does not follow simple commands, has a T-collar / G-tube Lab results reviewed, low-grade fever, 01/10 Eyes open, does not follow simple commands, no acute events overnight 01/11 no acute events overnight, Waiting for placement 01/12 No acute events overnight. Patient awaiting for placement 01/13. No new issues. Awaiting placement 01/14. No new issues. Awaiting placement. 01/15. No new issues. Awaiting placement. 01/16. No new issues. Patient remain stable. Awaiting placement. Check maintenance labs. 01/17. Routine maintenance labs were ordered and are still pending. Await placement. 01/18. Patient with low-grade fever past 24-48 hrs. WBC within normal limits. Check chest x-ray, urinalysis and consider blood cultures. Continue tracheostomy care, secretion control and airway management. Patient currently with PEG and tube feedings at 60 cc an hour. Nutritional support and aspiration precautions. 01/19. Temperature 100.7 overnight. Continue to monitor closely. Continue tracheostomy care, secretion control and airway management. Patient currently with PEG and tube feedings at 60 cc an hour. Nutritional support and aspiration precautions. 01/20. Continue to monitor closely. Continue tracheostomy care, secretion control and airway management. Patient currently with PEG and tube feedings at 60 cc an hour. Nutritional support and aspiration precautions. 01/21. Afebrile overnight. Continue to monitor closely. Continue tracheostomy care, secretion control and airway management. Patient currently with PEG and tube feedings at 60 cc an hour. Nutritional support and aspiration precautions. 01/22. Continue to monitor closely. Continue tracheostomy care, secretion control and airway management. Patient currently with PEG and tube feedings at 60 cc an hour. Nutritional support and aspiration precautions. 01/23. Continue tracheostomy care, secretion control and airway management. Patient currently with PEG and tube feedings at 60 cc an hour. Nutritional support and aspiration precautions. Will get routine labs tomorrow. 01/24. Labs reviewed. No abnormalities. Continue tracheostomy care, secretion control and airway management. Patient currently with PEG and tube feedings at 60 cc an hour. Nutritional support and aspiration precautions. 01/25. Temp 100.6. More sleepy today. Will get chest xray, blood culture, urinalysis, sputum cultures. Will start on empirical abx. 01/26: Vitals noted, slightly tachycardic. Follow culture work-up, continue supportive care. 01/27: Spiking low-grade temp, negative UA, sputum culture and recent blood cultures also negative. Continue to monitor off antibiotics. Continue supportive care. Pending placement. Subjective Date of service: 01/27/21 Principal diagnosis: Eclampsia/HELLP Syndrome, ADOLPH, DIC; s/p , s/p supracervical hyst Interval history: Patient seen and examined. Medical records and medication list reviewed. No acute event overnight noted by the RN. H&H stable, vitals noted Discussed with RN at the bedside Objective - Exam Narrative Exam: vITAL SIGNS: Reviewed. GENERAL: Trach in place HEAD: No signs of head trauma. EYES: Pupils are equal. NECK: No adenopathy, no JVD. CHEST: Diminished breath sounds CARDIAC: normal S1 and S2, without murmurs, gallops, or rubs. ABDOMEN: Soft, non tender and non distended. No rebound or guarding, and no masses palpated. Bowel Sounds normal MUSCULOSKELETAL: No edema NEUROLOGIC EXAM: nonverbal SKIN: No obvious lesions - Constitutional Vitals: Vital Signs - 12hr 01/27/21 01/27/21 01/27/21 05:06 08:00 09:25 Temperature 100.0 F H Pulse Rate 102 H Respiratory 18 Rate Blood Pressure 110/63 O2 Sat by Pulse 97 99 Oximetry O2 Sat by Pulse 99 Oximetry [ Assessment] 01/27/21 01/27/21 10:24 11:01 Temperature 98.5 F Pulse Rate 102 H 107 H Respiratory 24 Rate Blood Pressure 110/63 113/76 O2 Sat by Pulse 97 Oximetry O2 Sat by Pulse Oximetry [ Assessment] - Labs CBC & Chem 7: 01/24/21 04:18 01/24/21 04:18 Labs: Abnormal lab results 01/27/21 01/27/21 01/27/21 Range/Units 00:05 06:32 10:58 POC Glucose 116 H 108 H 126 H (70-105) mg/dL HEART Score - HEART Score Age: < 45 Risk factors: 1-2 risk factors - Critical Actions Critical Actions: >7 pts:50-65% risk of adverse cardiac event. Early invasive measures
[2021-01-27] MEDS: ALPRAZolam 0.25 MG TAB PO PRN (22:33)
[2021-01-28] MEDS: CEFEPIME/NS 2 GM/100 ML 2 GM/100 ML BAG IV SCH (02:14)
[2021-01-28] MEDS: DEXTROSE 5% IN WATER 1,000 ML IV SCH ×2 (05:03→22:43)
[2021-01-28] MEDS: ENOXAPARIN 40 MG/0.4 ML INJ SUB-Q SCH (11:00)
[2021-01-28] MEDS: METOPROLOL TARTRATE 25 MG TAB PO SCH ×2 (11:01→22:42)
[2021-01-28] MEDS: FAMOTIDINE 20 MG TAB PO SCH ×2 (11:01→22:42)
--- NOTE | 2021-01-28 14:53 | Progress Note ---
Assessment and Plan --DIC (disseminated intravascular coagulation) vs HELLP syndrome Resolved --Possible Eclampsia/HELLP Syndrome Resolved --s/p Cardiac arrest x2 on admission and on 10/07 ACLS protocol followed by revival Echo showed preserved Ef --Anoxic brain injury, Developed following cardiac arrest, continue supportive care --Shock-resolved now awaiting placement s/p pressor support --ADOLPH-resolved Stable --Sepsis 2/2 UTI s/p cefepime to cover possible pseudomonas as sputum is also growing GN rods till 01/04/21 Previous urine culture grew pansensitive ecoli --Hypernatremia, resolved, cont free water with TF --DVT prophylaxis Patient presented with DIC No anticoagulants Overall prognosis extremely poor. Brief history 30 year old -[place] female CHE 10/25/20 at 36w5d who presents with seizures in triage on 10/02/20. Pt was not able to provide history but per pt's , she presented to the hospital to return a 24 hour urine specimen for analysis. She then suddenly reported that she did not feel good. She was taken to labor and delivery and shortly after arrival, she began seizing. During this time, a code met was called because the patient became hypoxic. She was then noted to be without a pulse. Chest compressions were started immediately, and the patient was emergently taken to the operating room for delivery of the fetus. Off note, This patient has had care at [facility] with comanagement by [facility] since 11 wks complicated by ADHD, morbid obesity, generalized anxiety disorder, panic attacks, chronic narcotic use, fibromyalgia, GERD, Irritable Bowel Syndrome, Migraines, h/o endometrial ablation and ovarian vein embolization, genital herpes, insomnia, LGA fetus, nausea and vomiting, polyhydramnios, quad screen positive for Down's Syndrome, and previous x 3. She was GBS negative. Daily clinical course 10/02/21 11:30: Pt brought to L&D triage for evaluation of possible labor. Pt accompanied by her spouse. Pt spouse poor historian; unable to obtain history- allergies at this time. Pt taken from registration to triage area via WC. Pt unresponsive, actively seizing with snorous respirations. fisher sealKassy, called and requesting assistance. 11:35: Multiple staff at bedside. Pt 02 sat 67% on nonrebreather, unable to read BP at this time. Yifan Theodore CRNA, at bedside for intubation and assistance with IV insertion. INT attempt by multiple RNs unsuccessful at this time. 11:42: Pt being bagged by KORIN, 02% 79%. No pulse palpated, compressions started at this time; bharati young called and Dr. Newberry preparing OR for emergent c/s. 11:44: Continued compressions on stretcher while transporting pt to OR 1. Pt being bagged with jaw thrust manuever in place by KORIN Stringer student. 11:45: Arrival to OR 1. Dr. Newberry and Dr. Portillo present for emergent c/s. Code team arrived for continued care. patient revived and c/s done Patient has been bleeding from C/s site followed by supracervical hysterectomy for severe bleeding Patient transfused multiple units of PRBC, Patient in DIC. Transferred to the ICU 10/03. Patient seen and examined at bedside this morning. Patient is nonresponsive and mechanically ventilated. On pressors. Labs reviewed-has leukocytosis, anemia, thrombocytopenia, ADOLPH and lactic acidosis. Started on IV antibiotics to cover possible sepsis secondary to DIC. Hematology oncology recommendations appreciated-needs additional cryoprecipitate and FFP. Monitor D-dimer, fibrinogen and frequent labs. Nephrology consulted for lactic acidosis and ADOLPH. 10/04. Remains mechanically ventilated. Lynch antibiotics. Labs shows improved acidosis - lactic acid 3.5. Hb drop noted. Getting transfused 2 units PRBCs. Platelet count is ~40k. Continue to monitor labs closely. Critical care team on board. 10/05; xray reviewed, concerning for multifocal infilrate, likely underlying Pn eumonia, will add ID consult to assist with management of this critically ill patient, start tube feed, closely monitor renal system 10/06: Resumed care, remains on mechanical ventilation. No active bleeding, H&H stable. Continue to monitor CBC and BMP. Continue IV antibiotic for underlying pneumonia. Follow critical care and ID recommendation. 10/07: Remains on mechanical ventilation. No active bleeding, H&H stable. Critical care following, wean off ventilation as tolerated. 10/08: Patient had another cardiac arrest last night. Remains on mechanical ventilation, update family. Continue supportive care -poor prognosis 10/09: Called patient mother and discussed about patient care and management. Answered all question to best of my knowledge and family satisfaction. Patient remains on mechanical ventilation, cardiac arrest x2 so far. Critically sick, poor prognosis 10/10: remains on mechanical ventilation. h/h stable, no active bleeding. monitor CBC/BMP 10/11: WBC trended up with diarrhea, started on vancomycin po. remains on MV, off pressor, tolerating TF 10/12: remains on MV, off pressor, tolerating TF. called family for update but unable to reach, could not leave message as it was full. cont supportive care, wean off vent as tolerated. 10/13/2020; patient is on mechanical ventilation, tolerating tube feeding. Patient has labored breathing. Neuro was consulted and recommend MRI. Patient is on Precedex. Rectal tube in place. 10/14/2020; patient is on mechanical ventilation, Precedex. Patient had fever and blood culture ordered. Patient is on IV vancomycin per ID recommendation. Neuro consulted and recommend MRI. Continue to monitor. Prognosis is guarded. 10/15/2020; patient is on mechanical ventilation, Precedex. Patient had fever and blood culture ordered. Patient is on IV vancomycin per ID recommendation. Neuro consulted and recommend MRI. Continue to monitor. Prognosis is guarded. 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 12/06/20; anoxic brain injury. Awaiting placement. 12/07/2020; anoxic brain injury, awaiting placement. 12/09/2020; anoxic brain injury, awaiting placement. 12/10/2020; patient had episodes of fever overnight. CBC, BMP, blood culture, UA and chest x-ray ordered, will follow and manage accordingly. Urinalysis is suggestive of UTI and I put the patient on ceftriaxone, order urine culture. Chest x-ray is normal. 12/11/2020; patient is on ceftriaxone day 2 for UTI. We will continue to follow urine culture. 12/12/2020. Day #3 of Rocephin for UTI. We will continue for 2 more days while she is here. Present UTI. 12/13/2020. Day #4 of Rocephin for UTI. Patient remains on 50% with tracheos serafin. Remains unresponsive with evidence of anoxic encephalopathy unable to make needs known. 12/14/2020. Day #5 of Rocephin for UTI completed today. Remains encephalopathic unable to make needs known. Remains on 50% unable to decrease oxygen via tracheostomy. Overall prognosis remains extremely poor. 12/15: Continue to monitor. Stop and monitor antibiotics at this time. Continue to wean oxygen as tolerated. Wean oxygen as tolerated. Case management working on placement. 12/16: Continue supportive care aspiration precautions. Awaiting placement discussion. Monitor fever curve. Prognosis remains poor no evidence of neurological recovery as of today 12/17: Continue supportive care, check labs and chest xray. Still monitor off antibiotics. Monitor Sodium level 12/18: Patient remains with intermittent low grade fever, reviewed EEG from September again, consistent for Ischemic Hypoxic Encephalopathy, patient with decorticating posturing type presentation. Will discuss with tablet making machine operator helper to op timize diet so we can discontinue D5. CXR with no abnormality. Discussed extensively with the nursing staff at bedside CXR IMPRESSION: 1. No acute findings. 12/19: No clinical change 12/20: No clinical change, now off abx, monitor, discussed her medications with our pharmacist I believe that her posture and rigidity is likely from underlying anoxic encephalopathy. Continue to monitor and await placement decision. Continue aggressive suctioning. Plan discussed in detail with the nursing staff 12/21: Continue supportive care. Will give 500 cc bolus of fluid today to replace insensible losses. Tachycardia appears to be improving. Blood pressure precludes adjusting cardiac meds. Still awaiting placement from case management. Plan discussed in detail with the nursing staff 12/22. Continue support supportive care. Tracheostomy and PEG in place. Remains nonresponsive. Awaiting placement. 12/23. Continue support supportive care. Tracheostomy and PEG in place. Remains nonresponsive. Awaiting placement. Remains tachycardic. Decrease dose of lasix. Will try low dose metoprolol. Monitor BP closely 12/24. Continue support supportive care. Tracheostomy and PEG in place. Remains nonresponsive. Awaiting placement. Heart rate slightly better. Continue to monitor BP closely 12/25. Continue support supportive care. Tracheostomy and PEG in place. Remains nonresponsive. Awaiting placement. 12/26. Continue support supportive care. Tracheostomy and PEG in place. Remains nonresponsive. Awaiting placement 12/27. Continue support supportive care. Tracheostomy and PEG in place. Remains nonresponsive. Awaiting placement 12/28. Had fever yesterday. Blood culture drawn. UA - UTI - started on antibiotics. Now tracheal aspirate is growing GN rods. 12/29: Continue IV antibiotics, continue supportive care. Since admission patient has shown minimal or no chance of neurological recovery. Need 24/7 assistance. Currently on trach and PEG, nonverbal. Waiting on SNF placement. Discussed with egg caser today. 12/30: Continue IV antibiotics for UTI, continue supportive care. Pending placement 12/31: continue supportive care. continue supportive care. Pending placement 01/01: continue supportive care. Pending placement. cont Iv abx for UTI till 01/04 01/02: Continue supportive care, pending placement. Sodium level slightly elevated, will start hypotonic fluid. Continue antibiotics till 01/04 01/03; cont hypotonic fluid, increase free water with TF for hypernatremia, follow BMP. cont supportive care. pending placement. cont cefepime. recx blood 01/04: resolved hyponatremia, cont supportive care, pending placement. Last day of supplement today. 01/05: Continue supportive care, pending placement. Monitor H&H and fever curve off antibiotic. 01/06; monitor off abx, suction as needed, Continue supportive care, pending placement. 01/07: Discharge pending on placement, vitals stable. Continue supportive care 01/08: Discharge pending on placement, vitals stable. Continue supportive care. stop lasix, increase metoprolol to 25mg BID for ST. 01/09 patient resting with eyes closed. Opens eyes to tactile stimulus, has a blink reflex, does not follow simple commands, has a T-collar / G-tube Lab results reviewed, low-grade fever, 01/10 Eyes open, does not follow simple commands, no acute events overnight 01/11 no acute events overnight, Waiting for placement 01/12 No acute events overnight. Patient awaiting for placement 01/13. No new issues. Awaiting placement 01/14. No new issues. Awaiting placement. 01/15. No new issues. Awaiting placement. 01/16. No new issues. Patient remain stable. Awaiting placement. Check maintenance labs. 01/17. Routine maintenance labs were ordered and are still pending. Await placement. 01/18. Patient with low-grade fever past 24-48 hrs. WBC within normal limits. Check chest x-ray, urinalysis and consider blood cultures. Continue tracheostomy care, secretion control and airway management. Patient currently with PEG and tube feedings at 60 cc an hour. Nutritional support and aspiration precautions. 01/19. Temperature 100.7 overnight. Continue to monitor closely. Continue tracheostomy care, secretion control and airway management. Patient currently with PEG and tube feedings at 60 cc an hour. Nutritional support and aspiration precautions. 01/20. Continue to monitor closely. Continue tracheostomy care, secretion control and airway management. Patient currently with PEG and tube feedings at 60 cc an hour. Nutritional support and aspiration precautions. 01/21. Afebrile overnight. Continue to monitor closely. Continue tracheostomy care, secretion control and airway management. Patient currently with PEG and tube feedings at 60 cc an hour. Nutritional support and aspiration precautions. 01/22. Continue to monitor closely. Continue tracheostomy care, secretion control and airway management. Patient currently with PEG and tube feedings at 60 cc an hour. Nutritional support and aspiration precautions. 01/23. Continue tracheostomy care, secretion control and airway management. Patient currently with PEG and tube feedings at 60 cc an hour. Nutritional support and aspiration precautions. Will get routine labs tomorrow. 01/24. Labs reviewed. No abnormalities. Continue tracheostomy care, secretion control and airway management. Patient currently with PEG and tube feedings at 60 cc an hour. Nutritional support and aspiration precautions. 01/25. Temp 100.6. More sleepy today. Will get chest xray, blood culture, urinalysis, sputum cultures. Will start on empirical abx. 01/26: Vitals noted, slightly tachycardic. Follow culture work-up, continue supportive care. 01/27: Spiking low-grade temp, negative UA, sputum culture and recent blood cultures also negative. Continue to monitor off antibiotics. Continue supportive care. Pending placement. 01/28: cont to spike low grade temp, negative UA, sputum culture and recent blood cultures also negative. Continue to monitor off antibiotics. will order fpr sinus xry. Continue supportive care. Pending placement. Subjective Date of service: 01/28/21 Principal diagnosis: Eclampsia/HELLP Syndrome, ADOLPH, DIC; s/p , s/p supracervical hyst Interval history: Patient seen and examined. Medical records and medication list reviewed. No acute event overnight noted by the RN. H&H stable, vitals noted Discussed with RN at the bedside Objective - Exam Narrative Exam: vITAL SIGNS: Reviewed. GENERAL: Trach in place HEAD: No signs of head trauma. EYES: Pupils are equal. NECK: No adenopathy, no JVD. CHEST: Diminished breath sounds CARDIAC: normal S1 and S2, without murmurs, gallops, or rubs. ABDOMEN: Soft, non tender and non distended. No rebound or guarding, and no masses palpated. Bowel Sounds normal MUSCULOSKELETAL: No edema NEUROLOGIC EXAM: nonverbal SKIN: No obvious lesions - Constitutional Vitals: Vital Signs - 12hr 01/28/21 01/28/21 01/28/21 04:18 05:20 10:00 Temperature 99.5 F Pulse Rate 106 H Respiratory 20 Rate Blood Pressure 99/64 O2 Sat by Pulse 98 98 Oximetry O2 Sat by Pulse 99 98 Oximetry [ Assessment] 01/28/21 01/28/21 11:01 11:42 Temperature 100.3 F H Pulse Rate 106 H 113 H Respiratory 24 Rate Blood Pressure 99/64 135/74 O2 Sat by Pulse 96 Oximetry O2 Sat by Pulse Oximetry [ Assessment] - Labs CBC & Chem 7: 01/24/21 04:18 01/24/21 04:18 Labs: Abnormal lab results 01/27/21 01/28/21 01/28/21 Range/Units 17:01 06:24 11:41 POC Glucose 113 H 112 H 127 H (70-105) mg/dL HEART Score - HEART Score Age: < 45 Risk factors: 1-2 risk factors - Critical Actions Critical Actions: >7 pts:50-65% risk of adverse cardiac event. Early invasive measures
[2021-01-29 06:26] LABS: Basophils % (Auto) 0.4 % (0.0-1.8); Eosinophils # (Auto) 0.1 K/mm3 (0.0-0.4); Eosinophils % (Auto) 1.6 % (0.0-4.3); Hematocrit 39.3 % (30.3-42.9); Hemoglobin 12.6 gm/dl (10.1-14.3); Lymphocytes # (Auto) 2.1 K/mm3 (1.2-5.4); Lymphocytes % (Auto) 26.7 % (13.4-35.0); Mean Corpuscular HGB Conc 32 % (30-34); Mean Corpuscular Volume 75 fl (79-97); Monocytes # (Auto) 0.8 K/mm3 (0.0-0.8); Monocytes % (Auto) 10.3 % (0.0-7.3); Platelet Count 307 K/mm3 (140-440); Red Blood Count 5.27 M/mm3 (3.65-5.03); Red Cell Distribution Width 13.8 % (13.2-15.2)
[2021-01-29] MEDS: METOPROLOL TARTRATE 25 MG TAB PO SCH ×2 (11:07→21:59)
[2021-01-29] MEDS: ENOXAPARIN 40 MG/0.4 ML INJ SUB-Q SCH (11:07)
[2021-01-29] MEDS: FAMOTIDINE 20 MG TAB PO SCH ×2 (11:08→21:59)
--- NOTE | 2021-01-29 13:25 | Progress Note ---
Assessment and Plan --DIC (disseminated intravascular coagulation) vs HELLP syndrome Resolved --Possible Eclampsia/HELLP Syndrome Resolved --s/p Cardiac arrest x2 on admission and on 10/07 ACLS protocol followed by revival Echo showed preserved Ef --Anoxic brain injury, Developed following cardiac arrest, continue supportive care --Shock-resolved now awaiting placement s/p pressor support --ADOLPH-resolved Stable --Sepsis 2/2 UTI s/p cefepime to cover possible pseudomonas as sputum is also growing GN rods till 01/04/21 Previous urine culture grew pansensitive ecoli --Hypernatremia, resolved, cont free water with TF --DVT prophylaxis Patient presented with DIC No anticoagulants Overall prognosis extremely poor. Brief history 30 year old -[place] female CHE 10/25/20 at 36w5d who presents with seizures in triage on 10/02/20. Pt was not able to provide history but per pt's , she presented to the hospital to return a 24 hour urine specimen for analysis. She then suddenly reported that she did not feel good. She was taken to labor and delivery and shortly after arrival, she began seizing. During this time, a code met was called because the patient became hypoxic. She was then noted to be without a pulse. Chest compressions were started immediately, and the patient was emergently taken to the operating room for delivery of the fetus. Off note, This patient has had care at [facility] with comanagement by [facility] since 11 wks complicated by ADHD, morbid obesity, generalized anxiety disorder, panic attacks, chronic narcotic use, fibromyalgia, GERD, Irritable Bowel Syndrome, Migraines, h/o endometrial ablation and ovarian vein embolization, genital herpes, insomnia, LGA fetus, nausea and vomiting, polyhydramnios, quad screen positive for Down's Syndrome, and previous x 3. She was GBS negative. Daily clinical course 10/02/21 11:30: Pt brought to L&D triage for evaluation of possible labor. Pt accompanied by her spouse. Pt spouse poor historian; unable to obtain history- allergies at this time. Pt taken from registration to triage area via WC. Pt unresponsive, actively seizing with snorous respirations. beauty culturistKassy, called and requesting assistance. 11:35: Multiple staff at bedside. Pt 02 sat 67% on nonrebreather, unable to read BP at this time. Yifan Theodore CRNA, at bedside for intubation and assistance with IV insertion. INT attempt by multiple RNs unsuccessful at this time. 11:42: Pt being bagged by KORIN, 02% 79%. No pulse palpated, compressions started at this time; bharati young called and Dr. Newberry preparing OR for emergent c/s. 11:44: Continued compressions on stretcher while transporting pt to OR 1. Pt being bagged with jaw thrust manuever in place by KORIN Stringer student. 11:45: Arrival to OR 1. Dr. Newberry and Dr. Portillo present for emergent c/s. Code team arrived for continued care. patient revived and c/s done Patient has been bleeding from C/s site followed by supracervical hysterectomy for severe bleeding Patient transfused multiple units of PRBC, Patient in DIC. Transferred to the ICU 10/03. Patient seen and examined at bedside this morning. Patient is nonresponsive and mechanically ventilated. On pressors. Labs reviewed-has leukocytosis, anemia, thrombocytopenia, ADOLPH and lactic acidosis. Started on IV antibiotics to cover possible sepsis secondary to DIC. Hematology oncology recommendations appreciated-needs additional cryoprecipitate and FFP. Monitor D-dimer, fibrinogen and frequent labs. Nephrology consulted for lactic acidosis and ADOLPH. 10/04. Remains mechanically ventilated. [place] antibiotics. Labs shows improved acidosis - lactic acid 3.5. Hb drop noted. Getting transfused 2 units PRBCs. Platelet count is ~40k. Continue to monitor labs closely. Critical care team on board. 10/05; xray reviewed, concerning for multifocal infilrate, likely underlying Pn eumonia, will add ID consult to assist with management of this critically ill patient, start tube feed, closely monitor renal system 10/06: Resumed care, remains on mechanical ventilation. No active bleeding, H&H stable. Continue to monitor CBC and BMP. Continue IV antibiotic for underlying pneumonia. Follow critical care and ID recommendation. 10/07: Remains on mechanical ventilation. No active bleeding, H&H stable. Critical care following, wean off ventilation as tolerated. 10/08: Patient had another cardiac arrest last night. Remains on mechanical ventilation, update family. Continue supportive care -poor prognosis 10/09: Called patient mother and discussed about patient care and management. Answered all question to best of my knowledge and family satisfaction. Patient remains on mechanical ventilation, cardiac arrest x2 so far. Critically sick, poor prognosis 10/10: remains on mechanical ventilation. h/h stable, no active bleeding. monitor CBC/BMP 10/11: WBC trended up with diarrhea, started on vancomycin po. remains on MV, off pressor, tolerating TF 10/12: remains on MV, off pressor, tolerating TF. called family for update but unable to reach, could not leave message as it was full. cont supportive care, wean off vent as tolerated. 10/13/2020; patient is on mechanical ventilation, tolerating tube feeding. Patient has labored breathing. Neuro was consulted and recommend MRI. Patient is on Precedex. Rectal tube in place. 10/14/2020; patient is on mechanical ventilation, Precedex. Patient had fever and blood culture ordered. Patient is on IV vancomycin per ID recommendation. Neuro consulted and recommend MRI. Continue to monitor. Prognosis is guarded. 10/15/2020; patient is on mechanical ventilation, Precedex. Patient had fever and blood culture ordered. Patient is on IV vancomycin per ID recommendation. Neuro consulted and recommend MRI. Continue to monitor. Prognosis is guarded. 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 12/06/20; anoxic brain injury. Awaiting placement. 12/07/2020; anoxic brain injury, awaiting placement. 12/09/2020; anoxic brain injury, awaiting placement. 12/10/2020; patient had episodes of fever overnight. CBC, BMP, blood culture, UA and chest x-ray ordered, will follow and manage accordingly. Urinalysis is suggestive of UTI and I put the patient on ceftriaxone, order urine culture. Chest x-ray is normal. 12/11/2020; patient is on ceftriaxone day 2 for UTI. We will continue to follow urine culture. 12/12/2020. Day #3 of Rocephin for UTI. We will continue for 2 more days while she is here. Present UTI. 12/13/2020. Day #4 of Rocephin for UTI. Patient remains on 50% with tracheos serafin. Remains unresponsive with evidence of anoxic encephalopathy unable to make needs known. 12/14/2020. Day #5 of Rocephin for UTI completed today. Remains encephalopathic unable to make needs known. Remains on 50% unable to decrease oxygen via tracheostomy. Overall prognosis remains extremely poor. 12/15: Continue to monitor. Stop and monitor antibiotics at this time. Continue to wean oxygen as tolerated. Wean oxygen as tolerated. Case management working on placement. 12/16: Continue supportive care aspiration precautions. Awaiting placement discussion. Monitor fever curve. Prognosis remains poor no evidence of neurological recovery as of today 12/17: Continue supportive care, check labs and chest xray. Still monitor off antibiotics. Monitor Sodium level 12/18: Patient remains with intermittent low grade fever, reviewed EEG from September again, consistent for Ischemic Hypoxic Encephalopathy, patient with decorticating posturing type presentation. Will discuss with grinder operator surface tool to op timize diet so we can discontinue D5. CXR with no abnormality. Discussed extensively with the nursing staff at bedside CXR IMPRESSION: 1. No acute findings. 12/19: No clinical change 12/20: No clinical change, now off abx, monitor, discussed her medications with our pharmacist I believe that her posture and rigidity is likely from underlying anoxic encephalopathy. Continue to monitor and await placement decision. Continue aggressive suctioning. Plan discussed in detail with the nursing staff 12/21: Continue supportive care. Will give 500 cc bolus of fluid today to replace insensible losses. Tachycardia appears to be improving. Blood pressure precludes adjusting cardiac meds. Still awaiting placement from case management. Plan discussed in detail with the nursing staff 12/22. Continue support supportive care. Tracheostomy and PEG in place. Remains nonresponsive. Awaiting placement. 12/23. Continue support supportive care. Tracheostomy and PEG in place. Remains nonresponsive. Awaiting placement. Remains tachycardic. Decrease dose of lasix. Will try low dose metoprolol. Monitor BP closely 12/24. Continue support supportive care. Tracheostomy and PEG in place. Remains nonresponsive. Awaiting placement. Heart rate slightly better. Continue to monitor BP closely 12/25. Continue support supportive care. Tracheostomy and PEG in place. Remains nonresponsive. Awaiting placement. 12/26. Continue support supportive care. Tracheostomy and PEG in place. Remains nonresponsive. Awaiting placement 12/27. Continue support supportive care. Tracheostomy and PEG in place. Remains nonresponsive. Awaiting placement 12/28. Had fever yesterday. Blood culture drawn. UA - UTI - started on antibiotics. Now tracheal aspirate is growing GN rods. 12/29: Continue IV antibiotics, continue supportive care. Since admission patient has shown minimal or no chance of neurological recovery. Need 24/7 assistance. Currently on trach and PEG, nonverbal. Waiting on SNF placement. Discussed with medical case manager today. 12/30: Continue IV antibiotics for UTI, continue supportive care. Pending placement 12/31: continue supportive care. continue supportive care. Pending placement 01/01: continue supportive care. Pending placement. cont Iv abx for UTI till 01/04 01/02: Continue supportive care, pending placement. Sodium level slightly elevated, will start hypotonic fluid. Continue antibiotics till 01/04 01/03; cont hypotonic fluid, increase free water with TF for hypernatremia, follow BMP. cont supportive care. pending placement. cont cefepime. recx blood 01/04: resolved hyponatremia, cont supportive care, pending placement. Last day of supplement today. 01/05: Continue supportive care, pending placement. Monitor H&H and fever curve off antibiotic. 01/06; monitor off abx, suction as needed, Continue supportive care, pending placement. 01/07: Discharge pending on placement, vitals stable. Continue supportive care 01/08: Discharge pending on placement, vitals stable. Continue supportive care. stop lasix, increase metoprolol to 25mg BID for ST. 01/09 patient resting with eyes closed. Opens eyes to tactile stimulus, has a blink reflex, does not follow simple commands, has a T-collar / G-tube Lab results reviewed, low-grade fever, 01/10 Eyes open, does not follow simple commands, no acute events overnight 01/11 no acute events overnight, Waiting for placement 01/12 No acute events overnight. Patient awaiting for placement 01/13. No new issues. Awaiting placement 01/14. No new issues. Awaiting placement. 01/15. No new issues. Awaiting placement. 01/16. No new issues. Patient remain stable. Awaiting placement. Check maintenance labs. 01/17. Routine maintenance labs were ordered and are still pending. Await placement. 01/18. Patient with low-grade fever past 24-48 hrs. WBC within normal limits. Check chest x-ray, urinalysis and consider blood cultures. Continue tracheostomy care, secretion control and airway management. Patient currently with PEG and tube feedings at 60 cc an hour. Nutritional support and aspiration precautions. 01/19. Temperature 100.7 overnight. Continue to monitor closely. Continue tracheostomy care, secretion control and airway management. Patient currently with PEG and tube feedings at 60 cc an hour. Nutritional support and aspiration precautions. 01/20. Continue to monitor closely. Continue tracheostomy care, secretion control and airway management. Patient currently with PEG and tube feedings at 60 cc an hour. Nutritional support and aspiration precautions. 01/21. Afebrile overnight. Continue to monitor closely. Continue tracheostomy care, secretion control and airway management. Patient currently with PEG and tube feedings at 60 cc an hour. Nutritional support and aspiration precautions. 01/22. Continue to monitor closely. Continue tracheostomy care, secretion control and airway management. Patient currently with PEG and tube feedings at 60 cc an hour. Nutritional support and aspiration precautions. 01/23. Continue tracheostomy care, secretion control and airway management. Patient currently with PEG and tube feedings at 60 cc an hour. Nutritional support and aspiration precautions. Will get routine labs tomorrow. 01/24. Labs reviewed. No abnormalities. Continue tracheostomy care, secretion control and airway management. Patient currently with PEG and tube feedings at 60 cc an hour. Nutritional support and aspiration precautions. 01/25. Temp 100.6. More sleepy today. Will get chest xray, blood culture, urinalysis, sputum cultures. Will start on empirical abx. 01/26: Vitals noted, slightly tachycardic. Follow culture work-up, continue supportive care. 01/27: Spiking low-grade temp, negative UA, sputum culture and recent blood cultures also negative. Continue to monitor off antibiotics. Continue supportive care. Pending placement. 01/28: cont to spike low grade temp, negative UA, sputum culture and recent blood cultures also negative. Continue to monitor off antibiotics. will order fpr sinus xry. Continue supportive care. Pending placement. 01/29: Continue to follow clinically, intermittently spiking low-grade temp, all recent culture work is negative, negative UA, normal respiratory jaylan 1 tracheal aspirate. Vitals noted and currently stable. Pending placement Subjective Date of service: 01/29/21 Principal diagnosis: Eclampsia/HELLP Syndrome, ADOLPH, DIC; s/p , s/p supracervical hyst Interval history: Patient seen and examined. Medical records and medication list reviewed. No acute event overnight noted by the RN. H&H stable, vitals noted Discussed with RN at the bedside Objective - Exam Narrative Exam: vITAL SIGNS: Reviewed. GENERAL: Trach in place HEAD: No signs of head trauma. EYES: Pupils are equal. NECK: No adenopathy, no JVD. CHEST: Diminished breath sounds CARDIAC: normal S1 and S2, without murmurs, gallops, or rubs. ABDOMEN: Soft, non tender and non distended. No rebound or guarding, and no masses palpated. Bowel Sounds normal MUSCULOSKELETAL: No edema NEUROLOGIC EXAM: nonverbal SKIN: No obvious lesions - Constitutional Vitals: Vital Signs - 12hr 01/29/21 01/29/21 01/29/21 04:22 08:41 11:07 Temperature 98.6 F Pulse Rate 114 H 111 H Respiratory 18 Rate Blood Pressure 102/55 120/78 O2 Sat by Pulse 98 100 Oximetry O2 Sat by Pulse 100 Oximetry [ Assessment] 01/29/21 12:05 Temperature 99.9 F H Pulse Rate 90 Respiratory 20 Rate Blood Pressure 132/80 O2 Sat by Pulse 96 Oximetry O2 Sat by Pulse Oximetry [ Assessment] - Labs CBC & Chem 7: 01/29/21 05:47 01/29/21 05:47 Labs: Abnormal lab results 01/28/21 01/29/21 01/29/21 Range/Units 17:44 05:47 12:04 RBC 5.27 H (3.65-5.03) M/mm3 MCV 75 L (79-97) fl MCH 24 L (28-32) pg Sutter % (Auto) 10.3 H (0.0-7.3) % POC Glucose 108 H 107 H (70-105) mg/dL HEART Score - HEART Score Age: < 45 Risk factors: 1-2 risk factors - Critical Actions Critical Actions: >7 pts:50-65% risk of adverse cardiac event. Early invasive measures
[2021-01-30] MEDS: DEXTROSE 5% IN WATER 1,000 ML IV SCH (04:31)
[2021-01-30] MEDS: ENOXAPARIN 40 MG/0.4 ML INJ SUB-Q SCH (10:23)
[2021-01-30] MEDS: FAMOTIDINE 20 MG TAB PO SCH ×2 (10:23→21:29)
[2021-01-30] MEDS: METOPROLOL TARTRATE 25 MG TAB PO SCH ×2 (10:23→21:29)
--- NOTE | 2021-01-30 12:07 | Progress Note ---
Assessment and Plan --DIC (disseminated intravascular coagulation) vs HELLP syndrome Resolved --Possible Eclampsia/HELLP Syndrome Resolved --s/p Cardiac arrest x2 on admission and on 10/07 ACLS protocol followed by revival Echo showed preserved Ef --Anoxic brain injury, Developed following cardiac arrest, continue supportive care --Shock-resolved now awaiting placement s/p pressor support --ADOLPH-resolved Stable --Sepsis 2/2 UTI s/p cefepime to cover possible pseudomonas as sputum is also growing GN rods till 01/04/21 Previous urine culture grew pansensitive ecoli --Hypernatremia, resolved, cont free water with TF --DVT prophylaxis Patient presented with DIC No anticoagulants Overall prognosis extremely poor. Brief history 30 year old -[place] female CHE 10/25/20 at 36w5d who presents with seizures in triage on 10/02/20. Pt was not able to provide history but per pt's , she presented to the hospital to return a 24 hour urine specimen for analysis. She then suddenly reported that she did not feel good. She was taken to labor and delivery and shortly after arrival, she began seizing. During this time, a code met was called because the patient became hypoxic. She was then noted to be without a pulse. Chest compressions were started immediately, and the patient was emergently taken to the operating room for delivery of the fetus. Off note, This patient has had care at [facility] with comanagement by [facility] since 11 wks complicated by ADHD, morbid obesity, generalized anxiety disorder, panic attacks, chronic narcotic use, fibromyalgia, GERD, Irritable Bowel Syndrome, Migraines, h/o endometrial ablation and ovarian vein embolization, genital herpes, insomnia, LGA fetus, nausea and vomiting, polyhydramnios, quad screen positive for Down's Syndrome, and previous x 3. She was GBS negative. Daily clinical course 10/02/21 11:30: Pt brought to L&D triage for evaluation of possible labor. Pt accompanied by her spouse. Pt spouse poor historian; unable to obtain history- allergies at this time. Pt taken from registration to triage area via WC. Pt unresponsive, actively seizing with snorous respirations. memorial adviserKassy, called and requesting assistance. 11:35: Multiple staff at bedside. Pt 02 sat 67% on nonrebreather, unable to read BP at this time. Yifan Theodore CRNA, at bedside for intubation and assistance with IV insertion. INT attempt by multiple RNs unsuccessful at this time. 11:42: Pt being bagged by KORIN, 02% 79%. No pulse palpated, compressions started at this time; bharati young called and Dr. Newberry preparing OR for emergent c/s. 11:44: Continued compressions on stretcher while transporting pt to OR 1. Pt being bagged with jaw thrust manuever in place by KORIN Stringer student. 11:45: Arrival to OR 1. Dr. Newberry and Dr. Portillo present for emergent c/s. Code team arrived for continued care. patient revived and c/s done Patient has been bleeding from C/s site followed by supracervical hysterectomy for severe bleeding Patient transfused multiple units of PRBC, Patient in DIC. Transferred to the ICU 10/03. Patient seen and examined at bedside this morning. Patient is nonresponsive and mechanically ventilated. On pressors. Labs reviewed-has leukocytosis, anemia, thrombocytopenia, ADOLPH and lactic acidosis. Started on IV antibiotics to cover possible sepsis secondary to DIC. Hematology oncology recommendations appreciated-needs additional cryoprecipitate and FFP. Monitor D-dimer, fibrinogen and frequent labs. Nephrology consulted for lactic acidosis and ADOLPH. 10/04. Remains mechanically ventilated. [place] antibiotics. Labs shows improved acidosis - lactic acid 3.5. Hb drop noted. Getting transfused 2 units PRBCs. Platelet count is ~40k. Continue to monitor labs closely. Critical care team on board. 10/05; xray reviewed, concerning for multifocal infilrate, likely underlying Pn eumonia, will add ID consult to assist with management of this critically ill patient, start tube feed, closely monitor renal system 10/06: Resumed care, remains on mechanical ventilation. No active bleeding, H&H stable. Continue to monitor CBC and BMP. Continue IV antibiotic for underlying pneumonia. Follow critical care and ID recommendation. 10/07: Remains on mechanical ventilation. No active bleeding, H&H stable. Critical care following, wean off ventilation as tolerated. 10/08: Patient had another cardiac arrest last night. Remains on mechanical ventilation, update family. Continue supportive care -poor prognosis 10/09: Called patient mother and discussed about patient care and management. Answered all question to best of my knowledge and family satisfaction. Patient remains on mechanical ventilation, cardiac arrest x2 so far. Critically sick, poor prognosis 10/10: remains on mechanical ventilation. h/h stable, no active bleeding. monitor CBC/BMP 10/11: WBC trended up with diarrhea, started on vancomycin po. remains on MV, off pressor, tolerating TF 10/12: remains on MV, off pressor, tolerating TF. called family for update but unable to reach, could not leave message as it was full. cont supportive care, wean off vent as tolerated. 10/13/2020; patient is on mechanical ventilation, tolerating tube feeding. Patient has labored breathing. Neuro was consulted and recommend MRI. Patient is on Precedex. Rectal tube in place. 10/14/2020; patient is on mechanical ventilation, Precedex. Patient had fever and blood culture ordered. Patient is on IV vancomycin per ID recommendation. Neuro consulted and recommend MRI. Continue to monitor. Prognosis is guarded. 10/15/2020; patient is on mechanical ventilation, Precedex. Patient had fever and blood culture ordered. Patient is on IV vancomycin per ID recommendation. Neuro consulted and recommend MRI. Continue to monitor. Prognosis is guarded. 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 12/06/20; anoxic brain injury. Awaiting placement. 12/07/2020; anoxic brain injury, awaiting placement. 12/09/2020; anoxic brain injury, awaiting placement. 12/10/2020; patient had episodes of fever overnight. CBC, BMP, blood culture, UA and chest x-ray ordered, will follow and manage accordingly. Urinalysis is suggestive of UTI and I put the patient on ceftriaxone, order urine culture. Chest x-ray is normal. 12/11/2020; patient is on ceftriaxone day 2 for UTI. We will continue to follow urine culture. 12/12/2020. Day #3 of Rocephin for UTI. We will continue for 2 more days while she is here. Present UTI. 12/13/2020. Day #4 of Rocephin for UTI. Patient remains on 50% with tracheos serafin. Remains unresponsive with evidence of anoxic encephalopathy unable to make needs known. 12/14/2020. Day #5 of Rocephin for UTI completed today. Remains encephalopathic unable to make needs known. Remains on 50% unable to decrease oxygen via tracheostomy. Overall prognosis remains extremely poor. 12/15: Continue to monitor. Stop and monitor antibiotics at this time. Continue to wean oxygen as tolerated. Wean oxygen as tolerated. Case management working on placement. 12/16: Continue supportive care aspiration precautions. Awaiting placement discussion. Monitor fever curve. Prognosis remains poor no evidence of neurological recovery as of today 12/17: Continue supportive care, check labs and chest xray. Still monitor off antibiotics. Monitor Sodium level 12/18: Patient remains with intermittent low grade fever, reviewed EEG from September again, consistent for Ischemic Hypoxic Encephalopathy, patient with decorticating posturing type presentation. Will discuss with division commander to op timize diet so we can discontinue D5. CXR with no abnormality. Discussed extensively with the nursing staff at bedside CXR IMPRESSION: 1. No acute findings. 12/19: No clinical change 12/20: No clinical change, now off abx, monitor, discussed her medications with our pharmacist I believe that her posture and rigidity is likely from underlying anoxic encephalopathy. Continue to monitor and await placement decision. Continue aggressive suctioning. Plan discussed in detail with the nursing staff 12/21: Continue supportive care. Will give 500 cc bolus of fluid today to replace insensible losses. Tachycardia appears to be improving. Blood pressure precludes adjusting cardiac meds. Still awaiting placement from case management. Plan discussed in detail with the nursing staff 12/22. Continue support supportive care. Tracheostomy and PEG in place. Remains nonresponsive. Awaiting placement. 12/23. Continue support supportive care. Tracheostomy and PEG in place. Remains nonresponsive. Awaiting placement. Remains tachycardic. Decrease dose of lasix. Will try low dose metoprolol. Monitor BP closely 12/24. Continue support supportive care. Tracheostomy and PEG in place. Remains nonresponsive. Awaiting placement. Heart rate slightly better. Continue to monitor BP closely 12/25. Continue support supportive care. Tracheostomy and PEG in place. Remains nonresponsive. Awaiting placement. 12/26. Continue support supportive care. Tracheostomy and PEG in place. Remains nonresponsive. Awaiting placement 12/27. Continue support supportive care. Tracheostomy and PEG in place. Remains nonresponsive. Awaiting placement 12/28. Had fever yesterday. Blood culture drawn. UA - UTI - started on antibiotics. Now tracheal aspirate is growing GN rods. 12/29: Continue IV antibiotics, continue supportive care. Since admission patient has shown minimal or no chance of neurological recovery. Need 24/7 assistance. Currently on trach and PEG, nonverbal. Waiting on SNF placement. Discussed with supervisor case loading today. 12/30: Continue IV antibiotics for UTI, continue supportive care. Pending placement 12/31: continue supportive care. continue supportive care. Pending placement 01/01: continue supportive care. Pending placement. cont Iv abx for UTI till 01/04 01/02: Continue supportive care, pending placement. Sodium level slightly elevated, will start hypotonic fluid. Continue antibiotics till 01/04 01/03; cont hypotonic fluid, increase free water with TF for hypernatremia, follow BMP. cont supportive care. pending placement. cont cefepime. recx blood 01/04: resolved hyponatremia, cont supportive care, pending placement. Last day of supplement today. 01/05: Continue supportive care, pending placement. Monitor H&H and fever curve off antibiotic. 01/06; monitor off abx, suction as needed, Continue supportive care, pending placement. 01/07: Discharge pending on placement, vitals stable. Continue supportive care 01/08: Discharge pending on placement, vitals stable. Continue supportive care. stop lasix, increase metoprolol to 25mg BID for ST. 01/09 patient resting with eyes closed. Opens eyes to tactile stimulus, has a blink reflex, does not follow simple commands, has a T-collar / G-tube Lab results reviewed, low-grade fever, 01/10 Eyes open, does not follow simple commands, no acute events overnight 01/11 no acute events overnight, Waiting for placement 01/12 No acute events overnight. Patient awaiting for placement 01/13. No new issues. Awaiting placement 01/14. No new issues. Awaiting placement. 01/15. No new issues. Awaiting placement. 01/16. No new issues. Patient remain stable. Awaiting placement. Check maintenance labs. 01/17. Routine maintenance labs were ordered and are still pending. Await placement. 01/18. Patient with low-grade fever past 24-48 hrs. WBC within normal limits. Check chest x-ray, urinalysis and consider blood cultures. Continue tracheostomy care, secretion control and airway management. Patient currently with PEG and tube feedings at 60 cc an hour. Nutritional support and aspiration precautions. 01/19. Temperature 100.7 overnight. Continue to monitor closely. Continue tracheostomy care, secretion control and airway management. Patient currently with PEG and tube feedings at 60 cc an hour. Nutritional support and aspiration precautions. 01/20. Continue to monitor closely. Continue tracheostomy care, secretion control and airway management. Patient currently with PEG and tube feedings at 60 cc an hour. Nutritional support and aspiration precautions. 01/21. Afebrile overnight. Continue to monitor closely. Continue tracheostomy care, secretion control and airway management. Patient currently with PEG and tube feedings at 60 cc an hour. Nutritional support and aspiration precautions. 01/22. Continue to monitor closely. Continue tracheostomy care, secretion control and airway management. Patient currently with PEG and tube feedings at 60 cc an hour. Nutritional support and aspiration precautions. 01/23. Continue tracheostomy care, secretion control and airway management. Patient currently with PEG and tube feedings at 60 cc an hour. Nutritional support and aspiration precautions. Will get routine labs tomorrow. 01/24. Labs reviewed. No abnormalities. Continue tracheostomy care, secretion control and airway management. Patient currently with PEG and tube feedings at 60 cc an hour. Nutritional support and aspiration precautions. 01/25. Temp 100.6. More sleepy today. Will get chest xray, blood culture, urinalysis, sputum cultures. Will start on empirical abx. 01/26: Vitals noted, slightly tachycardic. Follow culture work-up, continue supportive care. 01/27: Spiking low-grade temp, negative UA, sputum culture and recent blood cultures also negative. Continue to monitor off antibiotics. Continue supportive care. Pending placement. 01/28: cont to spike low grade temp, negative UA, sputum culture and recent blood cultures also negative. Continue to monitor off antibiotics. will order fpr sinus xry. Continue supportive care. Pending placement. 01/29: Continue to follow clinically, intermittently spiking low-grade temp, all recent culture work is negative, negative UA, normal respiratory jaylan 1 tracheal aspirate. Vitals noted and currently stable. Pending placement 01/30: Clinically unchanged, continue to monitor vitals, continue supportive cares. Pending placement. Discussed plan of care with RN at the bedside. Subjective Date of service: 01/30/21 Principal diagnosis: Eclampsia/HELLP Syndrome, ADOLPH, DIC; s/p , s/p supracervical hyst Interval history: Patient seen and examined. Medical records and medication list reviewed. No acute event overnight noted by the RN. H&H stable, vitals noted Discussed with RN at the bedside Objective - Exam Narrative Exam: vITAL SIGNS: Reviewed. GENERAL: Trach in place HEAD: No signs of head trauma. EYES: Pupils are equal. NECK: No adenopathy, no JVD. CHEST: Diminished breath sounds CARDIAC: normal S1 and S2, without murmurs, gallops, or rubs. ABDOMEN: Soft, non tender and non distended. No rebound or guarding, and no masses palpated. Bowel Sounds normal MUSCULOSKELETAL: No edema NEUROLOGIC EXAM: nonverbal SKIN: No obvious lesions - Constitutional Vitals: Vital Signs - 12hr 01/30/21 05:05 Temperature 99.2 F Pulse Rate 94 H Respiratory 20 Rate Blood Pressure 102/64 O2 Sat by Pulse 99 Oximetry - Labs CBC & Chem 7: 01/29/21 05:47 01/29/21 05:47 Labs: Abnormal lab results 01/29/21 01/29/21 Range/Units 12:04 23:01 POC Glucose 107 H 108 H (70-105) mg/dL HEART Score - HEART Score Age: < 45 Risk factors: 1-2 risk factors - Critical Actions Critical Actions: >7 pts:50-65% risk of adverse cardiac event. Early invasive measures
[2021-01-31] MEDS: FAMOTIDINE 20 MG TAB PO SCH ×2 (10:21→21:51)
[2021-01-31] MEDS: METOPROLOL TARTRATE 25 MG TAB PO SCH ×2 (10:21→21:51)
[2021-01-31] MEDS: ENOXAPARIN 40 MG/0.4 ML INJ SUB-Q SCH (10:21)
--- NOTE | 2021-01-31 10:52 | Progress Note ---
Assessment and Plan --DIC (disseminated intravascular coagulation) vs HELLP syndrome Resolved --Possible Eclampsia/HELLP Syndrome Resolved --s/p Cardiac arrest x2 on admission and on 10/07 ACLS protocol followed by revival Echo showed preserved Ef --Anoxic brain injury, Developed following cardiac arrest, continue supportive care --Shock-resolved now awaiting placement s/p pressor support --ADOLPH-resolved Stable --Sepsis 2/2 UTI s/p cefepime to cover possible pseudomonas as sputum is also growing GN rods till 01/04/21 Previous urine culture grew pansensitive ecoli --Hypernatremia, resolved, cont free water with TF --DVT prophylaxis Patient presented with DIC No anticoagulants Overall prognosis extremely poor. Brief history 30 year old -[place] female CHE 10/25/20 at 36w5d who presents with seizures in triage on 10/02/20. Pt was not able to provide history but per pt's , she presented to the hospital to return a 24 hour urine specimen for analysis. She then suddenly reported that she did not feel good. She was taken to labor and delivery and shortly after arrival, she began seizing. During this time, a code met was called because the patient became hypoxic. She was then noted to be without a pulse. Chest compressions were started immediately, and the patient was emergently taken to the operating room for delivery of the fetus. Off note, This patient has had care at [facility] with comanagement by [facility] since 11 wks complicated by ADHD, morbid obesity, generalized anxiety disorder, panic attacks, chronic narcotic use, fibromyalgia, GERD, Irritable Bowel Syndrome, Migraines, h/o endometrial ablation and ovarian vein embolization, genital herpes, insomnia, LGA fetus, nausea and vomiting, polyhydramnios, quad screen positive for Down's Syndrome, and previous x 3. She was GBS negative. Daily clinical course 10/02/21 11:30: Pt brought to L&D triage for evaluation of possible labor. Pt accompanied by her spouse. Pt spouse poor historian; unable to obtain history- allergies at this time. Pt taken from registration to triage area via WC. Pt unresponsive, actively seizing with snorous respirations. directional bore operatorKassy, called and requesting assistance. 11:35: Multiple staff at bedside. Pt 02 sat 67% on nonrebreather, unable to read BP at this time. Yifan Theodore CRNA, at bedside for intubation and assistance with IV insertion. INT attempt by multiple RNs unsuccessful at this time. 11:42: Pt being bagged by KORIN, 02% 79%. No pulse palpated, compressions started at this time; bharati young called and Dr. Newberry preparing OR for emergent c/s. 11:44: Continued compressions on stretcher while transporting pt to OR 1. Pt being bagged with jaw thrust manuever in place by KORIN Stringer student. 11:45: Arrival to OR 1. Dr. Newberry and Dr. Portillo present for emergent c/s. Code team arrived for continued care. patient revived and c/s done Patient has been bleeding from C/s site followed by supracervical hysterectomy for severe bleeding Patient transfused multiple units of PRBC, Patient in DIC. Transferred to the ICU 10/03. Patient seen and examined at bedside this morning. Patient is nonresponsive and mechanically ventilated. On pressors. Labs reviewed-has leukocytosis, anemia, thrombocytopenia, ADOLPH and lactic acidosis. Started on IV antibiotics to cover possible sepsis secondary to DIC. Hematology oncology recommendations appreciated-needs additional cryoprecipitate and FFP. Monitor D-dimer, fibrinogen and frequent labs. Nephrology consulted for lactic acidosis and ADOLPH. 10/04. Remains mechanically ventilated. [place] antibiotics. Labs shows improved acidosis - lactic acid 3.5. Hb drop noted. Getting transfused 2 units PRBCs. Platelet count is ~40k. Continue to monitor labs closely. Critical care team on board. 10/05; xray reviewed, concerning for multifocal infilrate, likely underlying Pn eumonia, will add ID consult to assist with management of this critically ill patient, start tube feed, closely monitor renal system 10/06: Resumed care, remains on mechanical ventilation. No active bleeding, H&H stable. Continue to monitor CBC and BMP. Continue IV antibiotic for underlying pneumonia. Follow critical care and ID recommendation. 10/07: Remains on mechanical ventilation. No active bleeding, H&H stable. Critical care following, wean off ventilation as tolerated. 10/08: Patient had another cardiac arrest last night. Remains on mechanical ventilation, update family. Continue supportive care -poor prognosis 10/09: Called patient mother and discussed about patient care and management. Answered all question to best of my knowledge and family satisfaction. Patient remains on mechanical ventilation, cardiac arrest x2 so far. Critically sick, poor prognosis 10/10: remains on mechanical ventilation. h/h stable, no active bleeding. monitor CBC/BMP 10/11: WBC trended up with diarrhea, started on vancomycin po. remains on MV, off pressor, tolerating TF 10/12: remains on MV, off pressor, tolerating TF. called family for update but unable to reach, could not leave message as it was full. cont supportive care, wean off vent as tolerated. 10/13/2020; patient is on mechanical ventilation, tolerating tube feeding. Patient has labored breathing. Neuro was consulted and recommend MRI. Patient is on Precedex. Rectal tube in place. 10/14/2020; patient is on mechanical ventilation, Precedex. Patient had fever and blood culture ordered. Patient is on IV vancomycin per ID recommendation. Neuro consulted and recommend MRI. Continue to monitor. Prognosis is guarded. 10/15/2020; patient is on mechanical ventilation, Precedex. Patient had fever and blood culture ordered. Patient is on IV vancomycin per ID recommendation. Neuro consulted and recommend MRI. Continue to monitor. Prognosis is guarded. 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 12/06/20; anoxic brain injury. Awaiting placement. 12/07/2020; anoxic brain injury, awaiting placement. 12/09/2020; anoxic brain injury, awaiting placement. 12/10/2020; patient had episodes of fever overnight. CBC, BMP, blood culture, UA and chest x-ray ordered, will follow and manage accordingly. Urinalysis is suggestive of UTI and I put the patient on ceftriaxone, order urine culture. Chest x-ray is normal. 12/11/2020; patient is on ceftriaxone day 2 for UTI. We will continue to follow urine culture. 12/12/2020. Day #3 of Rocephin for UTI. We will continue for 2 more days while she is here. Present UTI. 12/13/2020. Day #4 of Rocephin for UTI. Patient remains on 50% with tracheos serafin. Remains unresponsive with evidence of anoxic encephalopathy unable to make needs known. 12/14/2020. Day #5 of Rocephin for UTI completed today. Remains encephalopathic unable to make needs known. Remains on 50% unable to decrease oxygen via tracheostomy. Overall prognosis remains extremely poor. 12/15: Continue to monitor. Stop and monitor antibiotics at this time. Continue to wean oxygen as tolerated. Wean oxygen as tolerated. Case management working on placement. 12/16: Continue supportive care aspiration precautions. Awaiting placement discussion. Monitor fever curve. Prognosis remains poor no evidence of neurological recovery as of today 12/17: Continue supportive care, check labs and chest xray. Still monitor off antibiotics. Monitor Sodium level 12/18: Patient remains with intermittent low grade fever, reviewed EEG from September again, consistent for Ischemic Hypoxic Encephalopathy, patient with decorticating posturing type presentation. Will discuss with mud car worker to op timize diet so we can discontinue D5. CXR with no abnormality. Discussed extensively with the nursing staff at bedside CXR IMPRESSION: 1. No acute findings. 12/19: No clinical change 12/20: No clinical change, now off abx, monitor, discussed her medications with our pharmacist I believe that her posture and rigidity is likely from underlying anoxic encephalopathy. Continue to monitor and await placement decision. Continue aggressive suctioning. Plan discussed in detail with the nursing staff 12/21: Continue supportive care. Will give 500 cc bolus of fluid today to replace insensible losses. Tachycardia appears to be improving. Blood pressure precludes adjusting cardiac meds. Still awaiting placement from case management. Plan discussed in detail with the nursing staff 12/22. Continue support supportive care. Tracheostomy and PEG in place. Remains nonresponsive. Awaiting placement. 12/23. Continue support supportive care. Tracheostomy and PEG in place. Remains nonresponsive. Awaiting placement. Remains tachycardic. Decrease dose of lasix. Will try low dose metoprolol. Monitor BP closely 12/24. Continue support supportive care. Tracheostomy and PEG in place. Remains nonresponsive. Awaiting placement. Heart rate slightly better. Continue to monitor BP closely 12/25. Continue support supportive care. Tracheostomy and PEG in place. Remains nonresponsive. Awaiting placement. 12/26. Continue support supportive care. Tracheostomy and PEG in place. Remains nonresponsive. Awaiting placement 12/27. Continue support supportive care. Tracheostomy and PEG in place. Remains nonresponsive. Awaiting placement 12/28. Had fever yesterday. Blood culture drawn. UA - UTI - started on antibiotics. Now tracheal aspirate is growing GN rods. 12/29: Continue IV antibiotics, continue supportive care. Since admission patient has shown minimal or no chance of neurological recovery. Need 24/7 assistance. Currently on trach and PEG, nonverbal. Waiting on SNF placement. Discussed with case picker today. 12/30: Continue IV antibiotics for UTI, continue supportive care. Pending placement 12/31: continue supportive care. continue supportive care. Pending placement 01/01: continue supportive care. Pending placement. cont Iv abx for UTI till 01/04 01/02: Continue supportive care, pending placement. Sodium level slightly elevated, will start hypotonic fluid. Continue antibiotics till 01/04 01/03; cont hypotonic fluid, increase free water with TF for hypernatremia, follow BMP. cont supportive care. pending placement. cont cefepime. recx blood 01/04: resolved hyponatremia, cont supportive care, pending placement. Last day of supplement today. 01/05: Continue supportive care, pending placement. Monitor H&H and fever curve off antibiotic. 01/06; monitor off abx, suction as needed, Continue supportive care, pending placement. 01/07: Discharge pending on placement, vitals stable. Continue supportive care 01/08: Discharge pending on placement, vitals stable. Continue supportive care. stop lasix, increase metoprolol to 25mg BID for ST. 01/09 patient resting with eyes closed. Opens eyes to tactile stimulus, has a blink reflex, does not follow simple commands, has a T-collar / G-tube Lab results reviewed, low-grade fever, 01/10 Eyes open, does not follow simple commands, no acute events overnight 01/11 no acute events overnight, Waiting for placement 01/12 No acute events overnight. Patient awaiting for placement 01/13. No new issues. Awaiting placement 01/14. No new issues. Awaiting placement. 01/15. No new issues. Awaiting placement. 01/16. No new issues. Patient remain stable. Awaiting placement. Check maintenance labs. 01/17. Routine maintenance labs were ordered and are still pending. Await placement. 01/18. Patient with low-grade fever past 24-48 hrs. WBC within normal limits. Check chest x-ray, urinalysis and consider blood cultures. Continue tracheostomy care, secretion control and airway management. Patient currently with PEG and tube feedings at 60 cc an hour. Nutritional support and aspiration precautions. 01/19. Temperature 100.7 overnight. Continue to monitor closely. Continue tracheostomy care, secretion control and airway management. Patient currently with PEG and tube feedings at 60 cc an hour. Nutritional support and aspiration precautions. 01/20. Continue to monitor closely. Continue tracheostomy care, secretion control and airway management. Patient currently with PEG and tube feedings at 60 cc an hour. Nutritional support and aspiration precautions. 01/21. Afebrile overnight. Continue to monitor closely. Continue tracheostomy care, secretion control and airway management. Patient currently with PEG and tube feedings at 60 cc an hour. Nutritional support and aspiration precautions. 01/22. Continue to monitor closely. Continue tracheostomy care, secretion control and airway management. Patient currently with PEG and tube feedings at 60 cc an hour. Nutritional support and aspiration precautions. 01/23. Continue tracheostomy care, secretion control and airway management. Patient currently with PEG and tube feedings at 60 cc an hour. Nutritional support and aspiration precautions. Will get routine labs tomorrow. 01/24. Labs reviewed. No abnormalities. Continue tracheostomy care, secretion control and airway management. Patient currently with PEG and tube feedings at 60 cc an hour. Nutritional support and aspiration precautions. 01/25. Temp 100.6. More sleepy today. Will get chest xray, blood culture, urinalysis, sputum cultures. Will start on empirical abx. 01/26: Vitals noted, slightly tachycardic. Follow culture work-up, continue supportive care. 01/27: Spiking low-grade temp, negative UA, sputum culture and recent blood cultures also negative. Continue to monitor off antibiotics. Continue supportive care. Pending placement. 01/28: cont to spike low grade temp, negative UA, sputum culture and recent blood cultures also negative. Continue to monitor off antibiotics. will order fpr sinus xry. Continue supportive care. Pending placement. 01/29: Continue to follow clinically, intermittently spiking low-grade temp, all recent culture work is negative, negative UA, normal respiratory jaylan 1 tracheal aspirate. Vitals noted and currently stable. Pending placement 01/30: Clinically unchanged, continue to monitor vitals, continue supportive cares. Pending placement. Discussed plan of care with RN at the bedside. 01/31: cont supportive care, pending placement. Subjective Date of service: 01/31/21 Principal diagnosis: Eclampsia/HELLP Syndrome, ADOLPH, DIC; s/p , s/p supracervical hyst Interval history: Patient seen and examined. Medical records and medication list reviewed. No acute event overnight noted by the RN. H&H stable, vitals noted Discussed with RN at the bedside Objective - Exam Narrative Exam: vITAL SIGNS: Reviewed. GENERAL: Trach in place HEAD: No signs of head trauma. EYES: Pupils are equal. NECK: No adenopathy, no JVD. CHEST: Diminished breath sounds CARDIAC: normal S1 and S2, without murmurs, gallops, or rubs. ABDOMEN: Soft, non tender and non distended. No rebound or guarding, and no masses palpated. Bowel Sounds normal MUSCULOSKELETAL: No edema NEUROLOGIC EXAM: nonverbal SKIN: No obvious lesions - Constitutional Vitals: Vital Signs - 12hr 01/31/21 06:06 Temperature 98.9 F Pulse Rate 98 H Respiratory 20 Rate Blood Pressure 115/77 [Left] O2 Sat by Pulse 96 Oximetry - Labs CBC & Chem 7: 01/29/21 05:47 01/29/21 05:47 HEART Score - HEART Score Age: < 45 Risk factors: 1-2 risk factors - Critical Actions Critical Actions: >7 pts:50-65% risk of adverse cardiac event. Early invasive measures
[2021-01-31] MEDS: DEXTROSE 5% IN WATER 1,000 ML IV SCH (13:58)
[2021-02-01] MEDS: ENOXAPARIN 40 MG/0.4 ML INJ SUB-Q SCH (10:03)
[2021-02-01] MEDS: FAMOTIDINE 20 MG TAB PO SCH ×2 (10:04→22:50)
[2021-02-01] MEDS: METOPROLOL TARTRATE 25 MG TAB PO SCH ×2 (10:04→22:50)
--- NOTE | 2021-02-01 13:49 | Progress Note ---
Assessment and Plan --DIC (disseminated intravascular coagulation) vs HELLP syndrome Resolved --Possible Eclampsia/HELLP Syndrome Resolved --s/p Cardiac arrest x2 on admission and on 10/07 ACLS protocol followed by revival Echo showed preserved Ef --Anoxic brain injury, Developed following cardiac arrest, continue supportive care --Shock-resolved now awaiting placement s/p pressor support --ADOLPH-resolved Stable --Sepsis 2/2 UTI s/p cefepime to cover possible pseudomonas as sputum is also growing GN rods till 01/04/21 Previous urine culture grew pansensitive ecoli --Hypernatremia, resolved, cont free water with TF --DVT prophylaxis Patient presented with DIC No anticoagulants Overall prognosis extremely poor. Brief history 30 year old -[place] female CHE 10/25/20 at 36w5d who presents with seizures in triage on 10/02/20. Pt was not able to provide history but per pt's , she presented to the hospital to return a 24 hour urine specimen for analysis. She then suddenly reported that she did not feel good. She was taken to labor and delivery and shortly after arrival, she began seizing. During this time, a code met was called because the patient became hypoxic. She was then noted to be without a pulse. Chest compressions were started immediately, and the patient was emergently taken to the operating room for delivery of the fetus. Off note, This patient has had care at [facility] with comanagement by [facility] since 11 wks complicated by ADHD, morbid obesity, generalized anxiety disorder, panic attacks, chronic narcotic use, fibromyalgia, GERD, Irritable Bowel Syndrome, Migraines, h/o endometrial ablation and ovarian vein embolization, genital herpes, insomnia, LGA fetus, nausea and vomiting, polyhydramnios, quad screen positive for Down's Syndrome, and previous x 3. She was GBS negative. Daily clinical course 10/02/21 11:30: Pt brought to L&D triage for evaluation of possible labor. Pt accompanied by her spouse. Pt spouse poor historian; unable to obtain history- allergies at this time. Pt taken from registration to triage area via WC. Pt unresponsive, actively seizing with snorous respirations. plant controllerKassy, called and requesting assistance. 11:35: Multiple staff at bedside. Pt 02 sat 67% on nonrebreather, unable to read BP at this time. Yifan Theodore CRNA, at bedside for intubation and assistance with IV insertion. INT attempt by multiple RNs unsuccessful at this time. 11:42: Pt being bagged by KORIN, 02% 79%. No pulse palpated, compressions started at this time; bharati young called and Dr. Newberry preparing OR for emergent c/s. 11:44: Continued compressions on stretcher while transporting pt to OR 1. Pt being bagged with jaw thrust manuever in place by KORIN Stringer student. 11:45: Arrival to OR 1. Dr. Newberry and Dr. Portillo present for emergent c/s. Code team arrived for continued care. patient revived and c/s done Patient has been bleeding from C/s site followed by supracervical hysterectomy for severe bleeding Patient transfused multiple units of PRBC, Patient in DIC. Transferred to the ICU 10/03. Patient seen and examined at bedside this morning. Patient is nonresponsive and mechanically ventilated. On pressors. Labs reviewed-has leukocytosis, anemia, thrombocytopenia, ADOLPH and lactic acidosis. Started on IV antibiotics to cover possible sepsis secondary to DIC. Hematology oncology recommendations appreciated-needs additional cryoprecipitate and FFP. Monitor D-dimer, fibrinogen and frequent labs. Nephrology consulted for lactic acidosis and ADOLPH. 10/04. Remains mechanically ventilated. [place] antibiotics. Labs shows improved acidosis - lactic acid 3.5. Hb drop noted. Getting transfused 2 units PRBCs. Platelet count is ~40k. Continue to monitor labs closely. Critical care team on board. 10/05; xray reviewed, concerning for multifocal infilrate, likely underlying Pn eumonia, will add ID consult to assist with management of this critically ill patient, start tube feed, closely monitor renal system 10/06: Resumed care, remains on mechanical ventilation. No active bleeding, H&H stable. Continue to monitor CBC and BMP. Continue IV antibiotic for underlying pneumonia. Follow critical care and ID recommendation. 10/07: Remains on mechanical ventilation. No active bleeding, H&H stable. Critical care following, wean off ventilation as tolerated. 10/08: Patient had another cardiac arrest last night. Remains on mechanical ventilation, update family. Continue supportive care -poor prognosis 10/09: Called patient mother and discussed about patient care and management. Answered all question to best of my knowledge and family satisfaction. Patient remains on mechanical ventilation, cardiac arrest x2 so far. Critically sick, poor prognosis 10/10: remains on mechanical ventilation. h/h stable, no active bleeding. monitor CBC/BMP 10/11: WBC trended up with diarrhea, started on vancomycin po. remains on MV, off pressor, tolerating TF 10/12: remains on MV, off pressor, tolerating TF. called family for update but unable to reach, could not leave message as it was full. cont supportive care, wean off vent as tolerated. 10/13/2020; patient is on mechanical ventilation, tolerating tube feeding. Patient has labored breathing. Neuro was consulted and recommend MRI. Patient is on Precedex. Rectal tube in place. 10/14/2020; patient is on mechanical ventilation, Precedex. Patient had fever and blood culture ordered. Patient is on IV vancomycin per ID recommendation. Neuro consulted and recommend MRI. Continue to monitor. Prognosis is guarded. 10/15/2020; patient is on mechanical ventilation, Precedex. Patient had fever and blood culture ordered. Patient is on IV vancomycin per ID recommendation. Neuro consulted and recommend MRI. Continue to monitor. Prognosis is guarded. 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 12/06/20; anoxic brain injury. Awaiting placement. 12/07/2020; anoxic brain injury, awaiting placement. 12/09/2020; anoxic brain injury, awaiting placement. 12/10/2020; patient had episodes of fever overnight. CBC, BMP, blood culture, UA and chest x-ray ordered, will follow and manage accordingly. Urinalysis is suggestive of UTI and I put the patient on ceftriaxone, order urine culture. Chest x-ray is normal. 12/11/2020; patient is on ceftriaxone day 2 for UTI. We will continue to follow urine culture. 12/12/2020. Day #3 of Rocephin for UTI. We will continue for 2 more days while she is here. Present UTI. 12/13/2020. Day #4 of Rocephin for UTI. Patient remains on 50% with tracheos serafin. Remains unresponsive with evidence of anoxic encephalopathy unable to make needs known. 12/14/2020. Day #5 of Rocephin for UTI completed today. Remains encephalopathic unable to make needs known. Remains on 50% unable to decrease oxygen via tracheostomy. Overall prognosis remains extremely poor. 12/15: Continue to monitor. Stop and monitor antibiotics at this time. Continue to wean oxygen as tolerated. Wean oxygen as tolerated. Case management working on placement. 12/16: Continue supportive care aspiration precautions. Awaiting placement discussion. Monitor fever curve. Prognosis remains poor no evidence of neurological recovery as of today 12/17: Continue supportive care, check labs and chest xray. Still monitor off antibiotics. Monitor Sodium level 12/18: Patient remains with intermittent low grade fever, reviewed EEG from September again, consistent for Ischemic Hypoxic Encephalopathy, patient with decorticating posturing type presentation. Will discuss with coat hanger shaper machine operator to op timize diet so we can discontinue D5. CXR with no abnormality. Discussed extensively with the nursing staff at bedside CXR IMPRESSION: 1. No acute findings. 12/19: No clinical change 12/20: No clinical change, now off abx, monitor, discussed her medications with our pharmacist I believe that her posture and rigidity is likely from underlying anoxic encephalopathy. Continue to monitor and await placement decision. Continue aggressive suctioning. Plan discussed in detail with the nursing staff 12/21: Continue supportive care. Will give 500 cc bolus of fluid today to replace insensible losses. Tachycardia appears to be improving. Blood pressure precludes adjusting cardiac meds. Still awaiting placement from case management. Plan discussed in detail with the nursing staff 12/22. Continue support supportive care. Tracheostomy and PEG in place. Remains nonresponsive. Awaiting placement. 12/23. Continue support supportive care. Tracheostomy and PEG in place. Remains nonresponsive. Awaiting placement. Remains tachycardic. Decrease dose of lasix. Will try low dose metoprolol. Monitor BP closely 12/24. Continue support supportive care. Tracheostomy and PEG in place. Remains nonresponsive. Awaiting placement. Heart rate slightly better. Continue to monitor BP closely 12/25. Continue support supportive care. Tracheostomy and PEG in place. Remains nonresponsive. Awaiting placement. 12/26. Continue support supportive care. Tracheostomy and PEG in place. Remains nonresponsive. Awaiting placement 12/27. Continue support supportive care. Tracheostomy and PEG in place. Remains nonresponsive. Awaiting placement 12/28. Had fever yesterday. Blood culture drawn. UA - UTI - started on antibiotics. Now tracheal aspirate is growing GN rods. 12/29: Continue IV antibiotics, continue supportive care. Since admission patient has shown minimal or no chance of neurological recovery. Need 24/7 assistance. Currently on trach and PEG, nonverbal. Waiting on SNF placement. Discussed with telephonic case manager today. 12/30: Continue IV antibiotics for UTI, continue supportive care. Pending placement 12/31: continue supportive care. continue supportive care. Pending placement 01/01: continue supportive care. Pending placement. cont Iv abx for UTI till 01/04 01/02: Continue supportive care, pending placement. Sodium level slightly elevated, will start hypotonic fluid. Continue antibiotics till 01/04 01/03; cont hypotonic fluid, increase free water with TF for hypernatremia, follow BMP. cont supportive care. pending placement. cont cefepime. recx blood 01/04: resolved hyponatremia, cont supportive care, pending placement. Last day of supplement today. 01/05: Continue supportive care, pending placement. Monitor H&H and fever curve off antibiotic. 01/06; monitor off abx, suction as needed, Continue supportive care, pending placement. 01/07: Discharge pending on placement, vitals stable. Continue supportive care 01/08: Discharge pending on placement, vitals stable. Continue supportive care. stop lasix, increase metoprolol to 25mg BID for ST. 01/09 patient resting with eyes closed. Opens eyes to tactile stimulus, has a blink reflex, does not follow simple commands, has a T-collar / G-tube Lab results reviewed, low-grade fever, 01/10 Eyes open, does not follow simple commands, no acute events overnight 01/11 no acute events overnight, Waiting for placement 01/12 No acute events overnight. Patient awaiting for placement 01/13. No new issues. Awaiting placement 01/14. No new issues. Awaiting placement. 01/15. No new issues. Awaiting placement. 01/16. No new issues. Patient remain stable. Awaiting placement. Check maintenance labs. 01/17. Routine maintenance labs were ordered and are still pending. Await placement. 01/18. Patient with low-grade fever past 24-48 hrs. WBC within normal limits. Check chest x-ray, urinalysis and consider blood cultures. Continue tracheostomy care, secretion control and airway management. Patient currently with PEG and tube feedings at 60 cc an hour. Nutritional support and aspiration precautions. 01/19. Temperature 100.7 overnight. Continue to monitor closely. Continue tracheostomy care, secretion control and airway management. Patient currently with PEG and tube feedings at 60 cc an hour. Nutritional support and aspiration precautions. 01/20. Continue to monitor closely. Continue tracheostomy care, secretion control and airway management. Patient currently with PEG and tube feedings at 60 cc an hour. Nutritional support and aspiration precautions. 01/21. Afebrile overnight. Continue to monitor closely. Continue tracheostomy care, secretion control and airway management. Patient currently with PEG and tube feedings at 60 cc an hour. Nutritional support and aspiration precautions. 01/22. Continue to monitor closely. Continue tracheostomy care, secretion control and airway management. Patient currently with PEG and tube feedings at 60 cc an hour. Nutritional support and aspiration precautions. 01/23. Continue tracheostomy care, secretion control and airway management. Patient currently with PEG and tube feedings at 60 cc an hour. Nutritional support and aspiration precautions. Will get routine labs tomorrow. 01/24. Labs reviewed. No abnormalities. Continue tracheostomy care, secretion control and airway management. Patient currently with PEG and tube feedings at 60 cc an hour. Nutritional support and aspiration precautions. 01/25. Temp 100.6. More sleepy today. Will get chest xray, blood culture, urinalysis, sputum cultures. Will start on empirical abx. 01/26: Vitals noted, slightly tachycardic. Follow culture work-up, continue supportive care. 01/27: Spiking low-grade temp, negative UA, sputum culture and recent blood cultures also negative. Continue to monitor off antibiotics. Continue supportive care. Pending placement. 01/28: cont to spike low grade temp, negative UA, sputum culture and recent blood cultures also negative. Continue to monitor off antibiotics. will order fpr sinus xry. Continue supportive care. Pending placement. 01/29: Continue to follow clinically, intermittently spiking low-grade temp, all recent culture work is negative, negative UA, normal respiratory jaylan 1 tracheal aspirate. Vitals noted and currently stable. Pending placement 01/30: Clinically unchanged, continue to monitor vitals, continue supportive cares. Pending placement. Discussed plan of care with RN at the bedside. 01/31 - TODATE: cont supportive care, pending placement. Subjective Date of service: 02/01/21 Principal diagnosis: Eclampsia/HELLP Syndrome, ADOLPH, DIC; s/p , s/p supracervical hyst Interval history: Patient seen and examined. Medical records and medication list reviewed. No acute event overnight noted by the RN. H&H stable, vitals noted Discussed with RN at the bedside Objective - Exam Narrative Exam: vITAL SIGNS: Reviewed. GENERAL: Trach in place HEAD: No signs of head trauma. EYES: Pupils are equal. NECK: No adenopathy, no JVD. CHEST: Diminished breath sounds CARDIAC: normal S1 and S2, without murmurs, gallops, or rubs. ABDOMEN: Soft, non tender and non distended. No rebound or guarding, and no masses palpated. Bowel Sounds normal MUSCULOSKELETAL: No edema NEUROLOGIC EXAM: nonverbal SKIN: No obvious lesions - Constitutional Vitals: Vital Signs - 12hr 02/01/21 02/01/21 02/01/21 04:07 08:30 12:00 Temperature 99.0 F 97.9 F Pulse Rate 96 H 92 H Respiratory 16 Rate Blood Pressure 105/68 Blood Pressure 161/74 [Left] O2 Sat by Pulse 97 99 Oximetry O2 Sat by Pulse 99 Oximetry [ Assessment] - Labs CBC & Chem 7: 01/29/21 05:47 01/29/21 05:47 Labs: Abnormal lab results 01/31/21 02/01/21 Range/Units 16:55 01:01 POC Glucose 110 H 113 H (70-105) mg/dL HEART Score - HEART Score Age: < 45 Risk factors: 1-2 risk factors - Critical Actions Critical Actions: >7 pts:50-65% risk of adverse cardiac event. Early invasive measures
[2021-02-01] MEDS: DEXTROSE 5% IN WATER 1,000 ML IV SCH (23:52)
[2021-02-02] MEDS: ALPRAZolam 0.25 MG TAB PO PRN ×2 (00:14→18:06)
[2021-02-02] MEDS: ENOXAPARIN 40 MG/0.4 ML INJ SUB-Q SCH (10:19)
[2021-02-02] MEDS: METOPROLOL TARTRATE 25 MG TAB PO SCH ×2 (10:19→21:23)
[2021-02-02] MEDS: FAMOTIDINE 20 MG TAB PO SCH ×2 (10:19→21:23)
--- NOTE | 2021-02-02 16:01 | Progress Note ---
Assessment and Plan --DIC (disseminated intravascular coagulation) vs HELLP syndrome Resolved --Possible Eclampsia/HELLP Syndrome Resolved --s/p Cardiac arrest x2 on admission and on 10/07 ACLS protocol followed by revival Echo showed preserved Ef --Anoxic brain injury, Developed following cardiac arrest, continue supportive care --Shock-resolved now awaiting placement s/p pressor support --ADOLPH-resolved Stable --Sepsis 2/2 UTI s/p cefepime to cover possible pseudomonas as sputum is also growing GN rods till 01/04/21 Previous urine culture grew pansensitive ecoli --Hypernatremia, resolved, cont free water with TF --DVT prophylaxis Patient presented with DIC No anticoagulants Overall prognosis extremely poor. Brief history 30 year old -[place] female CHE 10/25/20 at 36w5d who presents with seizures in triage on 10/02/20. Pt was not able to provide history but per pt's , she presented to the hospital to return a 24 hour urine specimen for analysis. She then suddenly reported that she did not feel good. She was taken to labor and delivery and shortly after arrival, she began seizing. During this time, a code met was called because the patient became hypoxic. She was then noted to be without a pulse. Chest compressions were started immediately, and the patient was emergently taken to the operating room for delivery of the fetus. Off note, This patient has had care at [facility] with comanagement by [facility] since 11 wks complicated by ADHD, morbid obesity, generalized anxiety disorder, panic attacks, chronic narcotic use, fibromyalgia, GERD, Irritable Bowel Syndrome, Migraines, h/o endometrial ablation and ovarian vein embolization, genital herpes, insomnia, LGA fetus, nausea and vomiting, polyhydramnios, quad screen positive for Down's Syndrome, and previous x 3. She was GBS negative. Daily clinical course 10/02/21 11:30: Pt brought to L&D triage for evaluation of possible labor. Pt accompanied by her spouse. Pt spouse poor historian; unable to obtain history- allergies at this time. Pt taken from registration to triage area via WC. Pt unresponsive, actively seizing with snorous respirations. tiger machine operatorKassy, called and requesting assistance. 11:35: Multiple staff at bedside. Pt 02 sat 67% on nonrebreather, unable to read BP at this time. Yifan Theodore CRNA, at bedside for intubation and assistance with IV insertion. INT attempt by multiple RNs unsuccessful at this time. 11:42: Pt being bagged by KORIN, 02% 79%. No pulse palpated, compressions started at this time; bharati young called and Dr. Newberry preparing OR for emergent c/s. 11:44: Continued compressions on stretcher while transporting pt to OR 1. Pt being bagged with jaw thrust manuever in place by KORIN Stringer student. 11:45: Arrival to OR 1. Dr. Newberry and Dr. Portillo present for emergent c/s. Code team arrived for continued care. patient revived and c/s done Patient has been bleeding from C/s site followed by supracervical hysterectomy for severe bleeding Patient transfused multiple units of PRBC, Patient in DIC. Transferred to the ICU 10/03. Patient seen and examined at bedside this morning. Patient is nonresponsive and mechanically ventilated. On pressors. Labs reviewed-has leukocytosis, anemia, thrombocytopenia, ADOLPH and lactic acidosis. Started on IV antibiotics to cover possible sepsis secondary to DIC. Hematology oncology recommendations appreciated-needs additional cryoprecipitate and FFP. Monitor D-dimer, fibrinogen and frequent labs. Nephrology consulted for lactic acidosis and ADOLPH. 10/04. Remains mechanically ventilated. [place] antibiotics. Labs shows improved acidosis - lactic acid 3.5. Hb drop noted. Getting transfused 2 units PRBCs. Platelet count is ~40k. Continue to monitor labs closely. Critical care team on board. 10/05; xray reviewed, concerning for multifocal infilrate, likely underlying Pn eumonia, will add ID consult to assist with management of this critically ill patient, start tube feed, closely monitor renal system 10/06: Resumed care, remains on mechanical ventilation. No active bleeding, H&H stable. Continue to monitor CBC and BMP. Continue IV antibiotic for underlying pneumonia. Follow critical care and ID recommendation. 10/07: Remains on mechanical ventilation. No active bleeding, H&H stable. Critical care following, wean off ventilation as tolerated. 10/08: Patient had another cardiac arrest last night. Remains on mechanical ventilation, update family. Continue supportive care -poor prognosis 10/09: Called patient mother and discussed about patient care and management. Answered all question to best of my knowledge and family satisfaction. Patient remains on mechanical ventilation, cardiac arrest x2 so far. Critically sick, poor prognosis 10/10: remains on mechanical ventilation. h/h stable, no active bleeding. monitor CBC/BMP 10/11: WBC trended up with diarrhea, started on vancomycin po. remains on MV, off pressor, tolerating TF 10/12: remains on MV, off pressor, tolerating TF. called family for update but unable to reach, could not leave message as it was full. cont supportive care, wean off vent as tolerated. 10/13/2020; patient is on mechanical ventilation, tolerating tube feeding. Patient has labored breathing. Neuro was consulted and recommend MRI. Patient is on Precedex. Rectal tube in place. 10/14/2020; patient is on mechanical ventilation, Precedex. Patient had fever and blood culture ordered. Patient is on IV vancomycin per ID recommendation. Neuro consulted and recommend MRI. Continue to monitor. Prognosis is guarded. 10/15/2020; patient is on mechanical ventilation, Precedex. Patient had fever and blood culture ordered. Patient is on IV vancomycin per ID recommendation. Neuro consulted and recommend MRI. Continue to monitor. Prognosis is guarded. 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 12/06/20; anoxic brain injury. Awaiting placement. 12/07/2020; anoxic brain injury, awaiting placement. 12/09/2020; anoxic brain injury, awaiting placement. 12/10/2020; patient had episodes of fever overnight. CBC, BMP, blood culture, UA and chest x-ray ordered, will follow and manage accordingly. Urinalysis is suggestive of UTI and I put the patient on ceftriaxone, order urine culture. Chest x-ray is normal. 12/11/2020; patient is on ceftriaxone day 2 for UTI. We will continue to follow urine culture. 12/12/2020. Day #3 of Rocephin for UTI. We will continue for 2 more days while she is here. Present UTI. 12/13/2020. Day #4 of Rocephin for UTI. Patient remains on 50% with tracheos serafin. Remains unresponsive with evidence of anoxic encephalopathy unable to make needs known. 12/14/2020. Day #5 of Rocephin for UTI completed today. Remains encephalopathic unable to make needs known. Remains on 50% unable to decrease oxygen via tracheostomy. Overall prognosis remains extremely poor. 12/15: Continue to monitor. Stop and monitor antibiotics at this time. Continue to wean oxygen as tolerated. Wean oxygen as tolerated. Case management working on placement. 12/16: Continue supportive care aspiration precautions. Awaiting placement discussion. Monitor fever curve. Prognosis remains poor no evidence of neurological recovery as of today 12/17: Continue supportive care, check labs and chest xray. Still monitor off antibiotics. Monitor Sodium level 12/18: Patient remains with intermittent low grade fever, reviewed EEG from September again, consistent for Ischemic Hypoxic Encephalopathy, patient with decorticating posturing type presentation. Will discuss with materials specialist to op timize diet so we can discontinue D5. CXR with no abnormality. Discussed extensively with the nursing staff at bedside CXR IMPRESSION: 1. No acute findings. 12/19: No clinical change 12/20: No clinical change, now off abx, monitor, discussed her medications with our pharmacist I believe that her posture and rigidity is likely from underlying anoxic encephalopathy. Continue to monitor and await placement decision. Continue aggressive suctioning. Plan discussed in detail with the nursing staff 12/21: Continue supportive care. Will give 500 cc bolus of fluid today to replace insensible losses. Tachycardia appears to be improving. Blood pressure precludes adjusting cardiac meds. Still awaiting placement from case management. Plan discussed in detail with the nursing staff 12/22. Continue support supportive care. Tracheostomy and PEG in place. Remains nonresponsive. Awaiting placement. 12/23. Continue support supportive care. Tracheostomy and PEG in place. Remains nonresponsive. Awaiting placement. Remains tachycardic. Decrease dose of lasix. Will try low dose metoprolol. Monitor BP closely 12/24. Continue support supportive care. Tracheostomy and PEG in place. Remains nonresponsive. Awaiting placement. Heart rate slightly better. Continue to monitor BP closely 12/25. Continue support supportive care. Tracheostomy and PEG in place. Remains nonresponsive. Awaiting placement. 12/26. Continue support supportive care. Tracheostomy and PEG in place. Remains nonresponsive. Awaiting placement 12/27. Continue support supportive care. Tracheostomy and PEG in place. Remains nonresponsive. Awaiting placement 12/28. Had fever yesterday. Blood culture drawn. UA - UTI - started on antibiotics. Now tracheal aspirate is growing GN rods. 12/29: Continue IV antibiotics, continue supportive care. Since admission patient has shown minimal or no chance of neurological recovery. Need 24/7 assistance. Currently on trach and PEG, nonverbal. Waiting on SNF placement. Discussed with case filler today. 12/30: Continue IV antibiotics for UTI, continue supportive care. Pending placement 12/31: continue supportive care. continue supportive care. Pending placement 01/01: continue supportive care. Pending placement. cont Iv abx for UTI till 01/04 01/02: Continue supportive care, pending placement. Sodium level slightly elevated, will start hypotonic fluid. Continue antibiotics till 01/04 01/03; cont hypotonic fluid, increase free water with TF for hypernatremia, follow BMP. cont supportive care. pending placement. cont cefepime. recx blood 01/04: resolved hyponatremia, cont supportive care, pending placement. Last day of supplement today. 01/05: Continue supportive care, pending placement. Monitor H&H and fever curve off antibiotic. 01/06; monitor off abx, suction as needed, Continue supportive care, pending placement. 01/07: Discharge pending on placement, vitals stable. Continue supportive care 01/08: Discharge pending on placement, vitals stable. Continue supportive care. stop lasix, increase metoprolol to 25mg BID for ST. 01/09 patient resting with eyes closed. Opens eyes to tactile stimulus, has a blink reflex, does not follow simple commands, has a T-collar / G-tube Lab results reviewed, low-grade fever, 01/10 Eyes open, does not follow simple commands, no acute events overnight 01/11 no acute events overnight, Waiting for placement 01/12 No acute events overnight. Patient awaiting for placement 01/13. No new issues. Awaiting placement 01/14. No new issues. Awaiting placement. 01/15. No new issues. Awaiting placement. 01/16. No new issues. Patient remain stable. Awaiting placement. Check maintenance labs. 01/17. Routine maintenance labs were ordered and are still pending. Await placement. 01/18. Patient with low-grade fever past 24-48 hrs. WBC within normal limits. Check chest x-ray, urinalysis and consider blood cultures. Continue tracheostomy care, secretion control and airway management. Patient currently with PEG and tube feedings at 60 cc an hour. Nutritional support and aspiration precautions. 01/19. Temperature 100.7 overnight. Continue to monitor closely. Continue tracheostomy care, secretion control and airway management. Patient currently with PEG and tube feedings at 60 cc an hour. Nutritional support and aspiration precautions. 01/20. Continue to monitor closely. Continue tracheostomy care, secretion control and airway management. Patient currently with PEG and tube feedings at 60 cc an hour. Nutritional support and aspiration precautions. 01/21. Afebrile overnight. Continue to monitor closely. Continue tracheostomy care, secretion control and airway management. Patient currently with PEG and tube feedings at 60 cc an hour. Nutritional support and aspiration precautions. 01/22. Continue to monitor closely. Continue tracheostomy care, secretion control and airway management. Patient currently with PEG and tube feedings at 60 cc an hour. Nutritional support and aspiration precautions. 01/23. Continue tracheostomy care, secretion control and airway management. Patient currently with PEG and tube feedings at 60 cc an hour. Nutritional support and aspiration precautions. Will get routine labs tomorrow. 01/24. Labs reviewed. No abnormalities. Continue tracheostomy care, secretion control and airway management. Patient currently with PEG and tube feedings at 60 cc an hour. Nutritional support and aspiration precautions. 01/25. Temp 100.6. More sleepy today. Will get chest xray, blood culture, urinalysis, sputum cultures. Will start on empirical abx. 01/26: Vitals noted, slightly tachycardic. Follow culture work-up, continue supportive care. 01/27: Spiking low-grade temp, negative UA, sputum culture and recent blood cultures also negative. Continue to monitor off antibiotics. Continue supportive care. Pending placement. 01/28: cont to spike low grade temp, negative UA, sputum culture and recent blood cultures also negative. Continue to monitor off antibiotics. will order fpr sinus xry. Continue supportive care. Pending placement. 01/29: Continue to follow clinically, intermittently spiking low-grade temp, all recent culture work is negative, negative UA, normal respiratory jaylan 1 tracheal aspirate. Vitals noted and currently stable. Pending placement 01/30: Clinically unchanged, continue to monitor vitals, continue supportive cares. Pending placement. Discussed plan of care with RN at the bedside. 01/31 - TODATE: cont supportive care, pending placement. monitor vitals carefully Subjective Date of service: 02/02/21 Principal diagnosis: Eclampsia/HELLP Syndrome, ADOLPH, DIC; s/p , s/p supracervical hyst Interval history: Patient seen and examined. Medical records and medication list reviewed. No acute event overnight noted by the RN. H&H stable, vitals noted Discussed with RN at the bedside Objective - Exam Narrative Exam: vITAL SIGNS: Reviewed. GENERAL: Trach in place HEAD: No signs of head trauma. EYES: Pupils are equal. NECK: No adenopathy, no JVD. CHEST: Diminished breath sounds CARDIAC: normal S1 and S2, without murmurs, gallops, or rubs. ABDOMEN: Soft, non tender and non distended. No rebound or guarding, and no masses palpated. Bowel Sounds normal MUSCULOSKELETAL: No edema NEUROLOGIC EXAM: nonverbal SKIN: No obvious lesions - Constitutional Vitals: Vital Signs - 12hr 02/02/21 02/02/21 02/02/21 05:36 08:00 10:58 Temperature 99.4 F Pulse Rate 103 H Respiratory 18 Rate Blood Pressure 104/65 Blood Pressure [Left] O2 Sat by Pulse 97 98 Oximetry O2 Sat by Pulse 98 Oximetry [ Assessment] 02/02/21 02/02/21 11:40 15:32 Temperature 100.6 F H Pulse Rate 118 H Respiratory 20 Rate Blood Pressure Blood Pressure 173/147 [Left] O2 Sat by Pulse Oximetry O2 Sat by Pulse 99 Oximetry [ Assessment] - Labs CBC & Chem 7: 01/29/21 05:47 01/29/21 05:47 HEART Score - HEART Score Age: < 45 Risk factors: 1-2 risk factors - Critical Actions Critical Actions: >7 pts:50-65% risk of adverse cardiac event. Early invasive measures
[2021-02-03] MEDS: DEXTROSE 5% IN WATER 1,000 ML IV SCH ×2 (05:49→09:42)
[2021-02-03 08:14] LABS: Hematocrit 39.2 % (30.3-42.9); Hemoglobin 12.7 gm/dl (10.1-14.3)
[2021-02-03 08:37] LABS: Blood Urea Nitrogen 14 mg/dL (7-17); Calcium 9.5 mg/dL (8.4-10.2); Hemolysis Index 14
[2021-02-03 08:40] LABS: BUN/Creatinine Ratio 28
[2021-02-03] MEDS: FAMOTIDINE 20 MG TAB PO SCH ×2 (11:04→21:35)
[2021-02-03] MEDS: ENOXAPARIN 40 MG/0.4 ML INJ SUB-Q SCH (11:04)
[2021-02-03] MEDS: METOPROLOL TARTRATE 25 MG TAB PO SCH ×2 (11:04→21:35)
--- NOTE | 2021-02-03 16:29 | Progress Note ---
Assessment and Plan --DIC (disseminated intravascular coagulation) vs HELLP syndrome Resolved --Possible Eclampsia/HELLP Syndrome Resolved --s/p Cardiac arrest x2 on admission and on 10/07 ACLS protocol followed by revival Echo showed preserved Ef --Anoxic brain injury, Developed following cardiac arrest, continue supportive care --Shock-resolved now awaiting placement s/p pressor support --ADOLPH-resolved Stable --Sepsis 2/2 UTI s/p cefepime to cover possible pseudomonas as sputum is also growing GN rods till 01/04/21 Previous urine culture grew pansensitive ecoli --Hypernatremia, resolved, cont free water with TF --DVT prophylaxis Patient presented with DIC No anticoagulants Overall prognosis extremely poor. Brief history 30 year old -Faroese female CHE 10/25/20 at 36w5d who presents with seizures in triage on 10/02/20. Pt was not able to provide history but per pt's , she presented to the hospital to return a 24 hour urine specimen for analysis. She then suddenly reported that she did not feel good. She was taken to labor and delivery and shortly after arrival, she began seizing. During this time, a code met was called because the patient became hypoxic. She was then noted to be without a pulse. Chest compressions were started immediately, and the patient was emergently taken to the operating room for delivery of the fetus. Off note, This patient has had care at [facility] with comanagement by [facility] since 11 wks complicated by ADHD, morbid obesity, generalized anxiety disorder, panic attacks, chronic narcotic use, fibromyalgia, GERD, Irritable Bowel Syndrome, Migraines, h/o endometrial ablation and ovarian vein embolization, genital herpes, insomnia, LGA fetus, nausea and vomiting, polyhydramnios, quad screen positive for Down's Syndrome, and previous x 3. She was GBS negative. Daily clinical course 10/02/21 11:30: Pt brought to L&D triage for evaluation of possible labor. Pt accompanied by her spouse. Pt spouse poor historian; unable to obtain history- allergies at this time. Pt taken from registration to triage area via WC. Pt unresponsive, actively seizing with snorous respirations. lather apprenticeKassy, called and requesting assistance. 11:35: Multiple staff at bedside. Pt 02 sat 67% on nonrebreather, unable to read BP at this time. Yifan Theodore CRNA, at bedside for intubation and assistance with IV insertion. INT attempt by multiple RNs unsuccessful at this time. 11:42: Pt being bagged by KORIN, 02% 79%. No pulse palpated, compressions started at this time; bharati young called and Dr. Newberry preparing OR for emergent c/s. 11:44: Continued compressions on stretcher while transporting pt to OR 1. Pt being bagged with jaw thrust manuever in place by KORIN Stringer student. 11:45: Arrival to OR 1. Dr. Newberry and Dr. Portillo present for emergent c/s. Code team arrived for continued care. patient revived and c/s done Patient has been bleeding from C/s site followed by supracervical hysterectomy for severe bleeding Patient transfused multiple units of PRBC, Patient in DIC. Transferred to the ICU 10/03. Patient seen and examined at bedside this morning. Patient is nonresponsive and mechanically ventilated. On pressors. Labs reviewed-has leukocytosis, anemia, thrombocytopenia, ADOLPH and lactic acidosis. Started on IV antibiotics to cover possible sepsis secondary to DIC. Hematology oncology recommendations appreciated-needs additional cryoprecipitate and FFP. Monitor D-dimer, fibrinogen and frequent labs. Nephrology consulted for lactic acidosis and ADOLPH. 10/04. Remains mechanically ventilated. [place] antibiotics. Labs shows improved acidosis - lactic acid 3.5. Hb drop noted. Getting transfused 2 units PRBCs. Platelet count is ~40k. Continue to monitor labs closely. Critical care team on board. 10/05; xray reviewed, concerning for multifocal infilrate, likely underlying Pn eumonia, will add ID consult to assist with management of this critically ill patient, start tube feed, closely monitor renal system 10/06: Resumed care, remains on mechanical ventilation. No active bleeding, H&H stable. Continue to monitor CBC and BMP. Continue IV antibiotic for underlying pneumonia. Follow critical care and ID recommendation. 10/07: Remains on mechanical ventilation. No active bleeding, H&H stable. Critical care following, wean off ventilation as tolerated. 10/08: Patient had another cardiac arrest last night. Remains on mechanical ventilation, update family. Continue supportive care -poor prognosis 10/09: Called patient mother and discussed about patient care and management. Answered all question to best of my knowledge and family satisfaction. Patient remains on mechanical ventilation, cardiac arrest x2 so far. Critically sick, poor prognosis 10/10: remains on mechanical ventilation. h/h stable, no active bleeding. monitor CBC/BMP 10/11: WBC trended up with diarrhea, started on vancomycin po. remains on MV, off pressor, tolerating TF 10/12: remains on MV, off pressor, tolerating TF. called family for update but unable to reach, could not leave message as it was full. cont supportive care, wean off vent as tolerated. 10/13/2020; patient is on mechanical ventilation, tolerating tube feeding. Patient has labored breathing. Neuro was consulted and recommend MRI. Patient is on Precedex. Rectal tube in place. 10/14/2020; patient is on mechanical ventilation, Precedex. Patient had fever and blood culture ordered. Patient is on IV vancomycin per ID recommendation. Neuro consulted and recommend MRI. Continue to monitor. Prognosis is guarded. 10/15/2020; patient is on mechanical ventilation, Precedex. Patient had fever and blood culture ordered. Patient is on IV vancomycin per ID recommendation. Neuro consulted and recommend MRI. Continue to monitor. Prognosis is guarded. 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 12/06/20; anoxic brain injury. Awaiting placement. 12/07/2020; anoxic brain injury, awaiting placement. 12/09/2020; anoxic brain injury, awaiting placement. 12/10/2020; patient had episodes of fever overnight. CBC, BMP, blood culture, UA and chest x-ray ordered, will follow and manage accordingly. Urinalysis is suggestive of UTI and I put the patient on ceftriaxone, order urine culture. Chest x-ray is normal. 12/11/2020; patient is on ceftriaxone day 2 for UTI. We will continue to follow urine culture. 12/12/2020. Day #3 of Rocephin for UTI. We will continue for 2 more days while she is here. Present UTI. 12/13/2020. Day #4 of Rocephin for UTI. Patient remains on 50% with tracheos serafin. Remains unresponsive with evidence of anoxic encephalopathy unable to make needs known. 12/14/2020. Day #5 of Rocephin for UTI completed today. Remains encephalopathic unable to make needs known. Remains on 50% unable to decrease oxygen via tracheostomy. Overall prognosis remains extremely poor. 12/15: Continue to monitor. Stop and monitor antibiotics at this time. Continue to wean oxygen as tolerated. Wean oxygen as tolerated. Case management working on placement. 12/16: Continue supportive care aspiration precautions. Awaiting placement discussion. Monitor fever curve. Prognosis remains poor no evidence of neurological recovery as of today 12/17: Continue supportive care, check labs and chest xray. Still monitor off antibiotics. Monitor Sodium level 12/18: Patient remains with intermittent low grade fever, reviewed EEG from September again, consistent for Ischemic Hypoxic Encephalopathy, patient with decorticating posturing type presentation. Will discuss with manager deli to op timize diet so we can discontinue D5. CXR with no abnormality. Discussed extensively with the nursing staff at bedside CXR IMPRESSION: 1. No acute findings. 12/19: No clinical change 12/20: No clinical change, now off abx, monitor, discussed her medications with our pharmacist I believe that her posture and rigidity is likely from underlying anoxic encephalopathy. Continue to monitor and await placement decision. Continue aggressive suctioning. Plan discussed in detail with the nursing staff 12/21: Continue supportive care. Will give 500 cc bolus of fluid today to replace insensible losses. Tachycardia appears to be improving. Blood pressure precludes adjusting cardiac meds. Still awaiting placement from case management. Plan discussed in detail with the nursing staff 12/22. Continue support supportive care. Tracheostomy and PEG in place. Remains nonresponsive. Awaiting placement. 12/23. Continue support supportive care. Tracheostomy and PEG in place. Remains nonresponsive. Awaiting placement. Remains tachycardic. Decrease dose of lasix. Will try low dose metoprolol. Monitor BP closely 12/24. Continue support supportive care. Tracheostomy and PEG in place. Remains nonresponsive. Awaiting placement. Heart rate slightly better. Continue to monitor BP closely 12/25. Continue support supportive care. Tracheostomy and PEG in place. Remains nonresponsive. Awaiting placement. 12/26. Continue support supportive care. Tracheostomy and PEG in place. Remains nonresponsive. Awaiting placement 12/27. Continue support supportive care. Tracheostomy and PEG in place. Remains nonresponsive. Awaiting placement 12/28. Had fever yesterday. Blood culture drawn. UA - UTI - started on antibiotics. Now tracheal aspirate is growing GN rods. 12/29: Continue IV antibiotics, continue supportive care. Since admission patient has shown minimal or no chance of neurological recovery. Need 24/7 assistance. Currently on trach and PEG, nonverbal. Waiting on SNF placement. Discussed with director of casework services today. 12/30: Continue IV antibiotics for UTI, continue supportive care. Pending placement 12/31: continue supportive care. continue supportive care. Pending placement 01/01: continue supportive care. Pending placement. cont Iv abx for UTI till 01/04 01/02: Continue supportive care, pending placement. Sodium level slightly elevated, will start hypotonic fluid. Continue antibiotics till 01/04 01/03; cont hypotonic fluid, increase free water with TF for hypernatremia, follow BMP. cont supportive care. pending placement. cont cefepime. recx blood 01/04: resolved hyponatremia, cont supportive care, pending placement. Last day of supplement today. 01/05: Continue supportive care, pending placement. Monitor H&H and fever curve off antibiotic. 01/06; monitor off abx, suction as needed, Continue supportive care, pending placement. 01/07: Discharge pending on placement, vitals stable. Continue supportive care 01/08: Discharge pending on placement, vitals stable. Continue supportive care. stop lasix, increase metoprolol to 25mg BID for ST. 01/09 patient resting with eyes closed. Opens eyes to tactile stimulus, has a blink reflex, does not follow simple commands, has a T-collar / G-tube Lab results reviewed, low-grade fever, 01/10 Eyes open, does not follow simple commands, no acute events overnight 01/11 no acute events overnight, Waiting for placement 01/12 No acute events overnight. Patient awaiting for placement 01/13. No new issues. Awaiting placement 01/14. No new issues. Awaiting placement. 01/15. No new issues. Awaiting placement. 01/16. No new issues. Patient remain stable. Awaiting placement. Check maintenance labs. 01/17. Routine maintenance labs were ordered and are still pending. Await placement. 01/18. Patient with low-grade fever past 24-48 hrs. WBC within normal limits. Check chest x-ray, urinalysis and consider blood cultures. Continue tracheostomy care, secretion control and airway management. Patient currently with PEG and tube feedings at 60 cc an hour. Nutritional support and aspiration precautions. 01/19. Temperature 100.7 overnight. Continue to monitor closely. Continue tracheostomy care, secretion control and airway management. Patient currently with PEG and tube feedings at 60 cc an hour. Nutritional support and aspiration precautions. 01/20. Continue to monitor closely. Continue tracheostomy care, secretion control and airway management. Patient currently with PEG and tube feedings at 60 cc an hour. Nutritional support and aspiration precautions. 01/21. Afebrile overnight. Continue to monitor closely. Continue tracheostomy care, secretion control and airway management. Patient currently with PEG and tube feedings at 60 cc an hour. Nutritional support and aspiration precautions. 01/22. Continue to monitor closely. Continue tracheostomy care, secretion control and airway management. Patient currently with PEG and tube feedings at 60 cc an hour. Nutritional support and aspiration precautions. 01/23. Continue tracheostomy care, secretion control and airway management. Patient currently with PEG and tube feedings at 60 cc an hour. Nutritional support and aspiration precautions. Will get routine labs tomorrow. 01/24. Labs reviewed. No abnormalities. Continue tracheostomy care, secretion control and airway management. Patient currently with PEG and tube feedings at 60 cc an hour. Nutritional support and aspiration precautions. 01/25. Temp 100.6. More sleepy today. Will get chest xray, blood culture, urinalysis, sputum cultures. Will start on empirical abx. 01/26: Vitals noted, slightly tachycardic. Follow culture work-up, continue supportive care. 01/27: Spiking low-grade temp, negative UA, sputum culture and recent blood cultures also negative. Continue to monitor off antibiotics. Continue supportive care. Pending placement. 01/28: cont to spike low grade temp, negative UA, sputum culture and recent blood cultures also negative. Continue to monitor off antibiotics. will order fpr sinus xry. Continue supportive care. Pending placement. 01/29: Continue to follow clinically, intermittently spiking low-grade temp, all recent culture work is negative, negative UA, normal respiratory jaylan 1 tracheal aspirate. Vitals noted and currently stable. Pending placement 01/30: Clinically unchanged, continue to monitor vitals, continue supportive cares. Pending placement. Discussed plan of care with RN at the bedside. 01/31 - TODATE: cont supportive care, pending placement. monitor vitals carefully Subjective Date of service: 02/03/21 Principal diagnosis: Eclampsia/HELLP Syndrome, ADOLPH, DIC; s/p , s/p supracervical hyst Interval history: Patient seen and examined. Medical records and medication list reviewed. No acute event overnight noted by the RN. H&H stable, vitals noted Discussed with RN and patient's at the bedside Objective - Exam Narrative Exam: vITAL SIGNS: Reviewed. GENERAL: Trach in place HEAD: No signs of head trauma. EYES: Pupils are equal. NECK: No adenopathy, no JVD. CHEST: Diminished breath sounds CARDIAC: normal S1 and S2, without murmurs, gallops, or rubs. ABDOMEN: Soft, non tender and non distended. No rebound or guarding, and no masses palpated. Bowel Sounds normal MUSCULOSKELETAL: No edema NEUROLOGIC EXAM: nonverbal SKIN: No obvious lesions - Constitutional Vitals: Vital Signs - 12hr 02/03/21 02/03/21 02/03/21 07:37 08:50 08:53 Respiratory 20 Rate O2 Sat by Pulse 98 Oximetry O2 Sat by Pulse 98 Oximetry [ Assessment] 02/03/21 14:20 Respiratory Rate O2 Sat by Pulse Oximetry O2 Sat by Pulse 97 Oximetry [ Assessment] - Labs CBC & Chem 7: 02/03/21 07:17 02/03/21 07:17 Labs: Abnormal lab results 02/03/21 02/03/21 Range/Units 06:52 07:17 Creatinine 0.5 L (0.6-1.2) mg/dL POC Glucose 68 L (70-105) mg/dL HEART Score - HEART Score Age: < 45 Risk factors: 1-2 risk factors - Critical Actions Critical Actions: >7 pts:50-65% risk of adverse cardiac event. Early invasive measures
[2021-02-04] MEDS ORDERED: SODIUM CHLORIDE 0.9% 250ML 250 ML IV ONE (05:26)
[2021-02-04] MEDS: ENOXAPARIN 40 MG/0.4 ML INJ SUB-Q SCH (09:33)
[2021-02-04] MEDS: FAMOTIDINE 20 MG TAB PO SCH ×2 (09:33→21:39)
[2021-02-04] MEDS: METOPROLOL TARTRATE 25 MG TAB PO SCH ×2 (09:33→21:38)
--- NOTE | 2021-02-04 13:35 | Progress Note ---
Assessment and Plan --DIC (disseminated intravascular coagulation) vs HELLP syndrome Resolved --Possible Eclampsia/HELLP Syndrome Resolved --s/p Cardiac arrest x2 on admission and on 10/07 ACLS protocol followed by revival Echo showed preserved Ef --Anoxic brain injury, Developed following cardiac arrest, continue supportive care --Shock-resolved now awaiting placement s/p pressor support --ADOLPH-resolved Stable --Sepsis 2/2 UTI s/p cefepime to cover possible pseudomonas as sputum is also growing GN rods till 01/04/21 Previous urine culture grew pansensitive ecoli --Hypernatremia, resolved, cont free water with TF --DVT prophylaxis Patient presented with DIC No anticoagulants Overall prognosis extremely poor. Brief history 30 year old -[place] female CHE 10/25/20 at 36w5d who presents with seizures in triage on 10/02/20. Pt was not able to provide history but per pt's , she presented to the hospital to return a 24 hour urine specimen for analysis. She then suddenly reported that she did not feel good. She was taken to labor and delivery and shortly after arrival, she began seizing. During this time, a code met was called because the patient became hypoxic. She was then noted to be without a pulse. Chest compressions were started immediately, and the patient was emergently taken to the operating room for delivery of the fetus. Off note, This patient has had care at [facility] with comanagement by [facility] since 11 wks complicated by ADHD, morbid obesity, generalized anxiety disorder, panic attacks, chronic narcotic use, fibromyalgia, GERD, Irritable Bowel Syndrome, Migraines, h/o endometrial ablation and ovarian vein embolization, genital herpes, insomnia, LGA fetus, nausea and vomiting, polyhydramnios, quad screen positive for Down's Syndrome, and previous x 3. She was GBS negative. Daily clinical course 10/02/21 11:30: Pt brought to L&D triage for evaluation of possible labor. Pt accompanied by her spouse. Pt spouse poor historian; unable to obtain history- allergies at this time. Pt taken from registration to triage area via WC. Pt unresponsive, actively seizing with snorous respirations. signs and displays salespersonKassy, called and requesting assistance. 11:35: Multiple staff at bedside. Pt 02 sat 67% on nonrebreather, unable to read BP at this time. Yifan Theodore CRNA, at bedside for intubation and assistance with IV insertion. INT attempt by multiple RNs unsuccessful at this time. 11:42: Pt being bagged by KORIN, 02% 79%. No pulse palpated, compressions started at this time; bharati young called and Dr. Newberry preparing OR for emergent c/s. 11:44: Continued compressions on stretcher while transporting pt to OR 1. Pt being bagged with jaw thrust manuever in place by KORIN Stringer student. 11:45: Arrival to OR 1. Dr. Newberry and Dr. Portillo present for emergent c/s. Code team arrived for continued care. patient revived and c/s done Patient has been bleeding from C/s site followed by supracervical hysterectomy for severe bleeding Patient transfused multiple units of PRBC, Patient in DIC. Transferred to the ICU 10/03. Patient seen and examined at bedside this morning. Patient is nonresponsive and mechanically ventilated. On pressors. Labs reviewed-has leukocytosis, anemia, thrombocytopenia, ADOLPH and lactic acidosis. Started on IV antibiotics to cover possible sepsis secondary to DIC. Hematology oncology recommendations appreciated-needs additional cryoprecipitate and FFP. Monitor D-dimer, fibrinogen and frequent labs. Nephrology consulted for lactic acidosis and ADOLPH. 10/04. Remains mechanically ventilated. [place] antibiotics. Labs shows improved acidosis - lactic acid 3.5. Hb drop noted. Getting transfused 2 units PRBCs. Platelet count is ~40k. Continue to monitor labs closely. Critical care team on board. 10/05; xray reviewed, concerning for multifocal infilrate, likely underlying Pn eumonia, will add ID consult to assist with management of this critically ill patient, start tube feed, closely monitor renal system 10/06: Resumed care, remains on mechanical ventilation. No active bleeding, H&H stable. Continue to monitor CBC and BMP. Continue IV antibiotic for underlying pneumonia. Follow critical care and ID recommendation. 10/07: Remains on mechanical ventilation. No active bleeding, H&H stable. Critical care following, wean off ventilation as tolerated. 10/08: Patient had another cardiac arrest last night. Remains on mechanical ventilation, update family. Continue supportive care -poor prognosis 10/09: Called patient mother and discussed about patient care and management. Answered all question to best of my knowledge and family satisfaction. Patient remains on mechanical ventilation, cardiac arrest x2 so far. Critically sick, poor prognosis 10/10: remains on mechanical ventilation. h/h stable, no active bleeding. monitor CBC/BMP 10/11: WBC trended up with diarrhea, started on vancomycin po. remains on MV, off pressor, tolerating TF 10/12: remains on MV, off pressor, tolerating TF. called family for update but unable to reach, could not leave message as it was full. cont supportive care, wean off vent as tolerated. 10/13/2020; patient is on mechanical ventilation, tolerating tube feeding. Patient has labored breathing. Neuro was consulted and recommend MRI. Patient is on Precedex. Rectal tube in place. 10/14/2020; patient is on mechanical ventilation, Precedex. Patient had fever and blood culture ordered. Patient is on IV vancomycin per ID recommendation. Neuro consulted and recommend MRI. Continue to monitor. Prognosis is guarded. 10/15/2020; patient is on mechanical ventilation, Precedex. Patient had fever and blood culture ordered. Patient is on IV vancomycin per ID recommendation. Neuro consulted and recommend MRI. Continue to monitor. Prognosis is guarded. 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 12/06/20; anoxic brain injury. Awaiting placement. 12/07/2020; anoxic brain injury, awaiting placement. 12/09/2020; anoxic brain injury, awaiting placement. 12/10/2020; patient had episodes of fever overnight. CBC, BMP, blood culture, UA and chest x-ray ordered, will follow and manage accordingly. Urinalysis is suggestive of UTI and I put the patient on ceftriaxone, order urine culture. Chest x-ray is normal. 12/11/2020; patient is on ceftriaxone day 2 for UTI. We will continue to follow urine culture. 12/12/2020. Day #3 of Rocephin for UTI. We will continue for 2 more days while she is here. Present UTI. 12/13/2020. Day #4 of Rocephin for UTI. Patient remains on 50% with tracheos serafin. Remains unresponsive with evidence of anoxic encephalopathy unable to make needs known. 12/14/2020. Day #5 of Rocephin for UTI completed today. Remains encephalopathic unable to make needs known. Remains on 50% unable to decrease oxygen via tracheostomy. Overall prognosis remains extremely poor. 12/15: Continue to monitor. Stop and monitor antibiotics at this time. Continue to wean oxygen as tolerated. Wean oxygen as tolerated. Case management working on placement. 12/16: Continue supportive care aspiration precautions. Awaiting placement discussion. Monitor fever curve. Prognosis remains poor no evidence of neurological recovery as of today 12/17: Continue supportive care, check labs and chest xray. Still monitor off antibiotics. Monitor Sodium level 12/18: Patient remains with intermittent low grade fever, reviewed EEG from September again, consistent for Ischemic Hypoxic Encephalopathy, patient with decorticating posturing type presentation. Will discuss with subcontracts manager to op timize diet so we can discontinue D5. CXR with no abnormality. Discussed extensively with the nursing staff at bedside CXR IMPRESSION: 1. No acute findings. 12/19: No clinical change 12/20: No clinical change, now off abx, monitor, discussed her medications with our pharmacist I believe that her posture and rigidity is likely from underlying anoxic encephalopathy. Continue to monitor and await placement decision. Continue aggressive suctioning. Plan discussed in detail with the nursing staff 12/21: Continue supportive care. Will give 500 cc bolus of fluid today to replace insensible losses. Tachycardia appears to be improving. Blood pressure precludes adjusting cardiac meds. Still awaiting placement from case management. Plan discussed in detail with the nursing staff 12/22. Continue support supportive care. Tracheostomy and PEG in place. Remains nonresponsive. Awaiting placement. 12/23. Continue support supportive care. Tracheostomy and PEG in place. Remains nonresponsive. Awaiting placement. Remains tachycardic. Decrease dose of lasix. Will try low dose metoprolol. Monitor BP closely 12/24. Continue support supportive care. Tracheostomy and PEG in place. Remains nonresponsive. Awaiting placement. Heart rate slightly better. Continue to monitor BP closely 12/25. Continue support supportive care. Tracheostomy and PEG in place. Remains nonresponsive. Awaiting placement. 12/26. Continue support supportive care. Tracheostomy and PEG in place. Remains nonresponsive. Awaiting placement 12/27. Continue support supportive care. Tracheostomy and PEG in place. Remains nonresponsive. Awaiting placement 12/28. Had fever yesterday. Blood culture drawn. UA - UTI - started on antibiotics. Now tracheal aspirate is growing GN rods. 12/29: Continue IV antibiotics, continue supportive care. Since admission patient has shown minimal or no chance of neurological recovery. Need 24/7 assistance. Currently on trach and PEG, nonverbal. Waiting on SNF placement. Discussed with disease case manager rn today. 12/30: Continue IV antibiotics for UTI, continue supportive care. Pending placement 12/31: continue supportive care. continue supportive care. Pending placement 01/01: continue supportive care. Pending placement. cont Iv abx for UTI till 01/04 01/02: Continue supportive care, pending placement. Sodium level slightly elevated, will start hypotonic fluid. Continue antibiotics till 01/04 01/03; cont hypotonic fluid, increase free water with TF for hypernatremia, follow BMP. cont supportive care. pending placement. cont cefepime. recx blood 01/04: resolved hyponatremia, cont supportive care, pending placement. Last day of supplement today. 01/05: Continue supportive care, pending placement. Monitor H&H and fever curve off antibiotic. 01/06; monitor off abx, suction as needed, Continue supportive care, pending placement. 01/07: Discharge pending on placement, vitals stable. Continue supportive care 01/08: Discharge pending on placement, vitals stable. Continue supportive care. stop lasix, increase metoprolol to 25mg BID for ST. 01/09 patient resting with eyes closed. Opens eyes to tactile stimulus, has a blink reflex, does not follow simple commands, has a T-collar / G-tube Lab results reviewed, low-grade fever, 01/10 Eyes open, does not follow simple commands, no acute events overnight 01/11 no acute events overnight, Waiting for placement 01/12 No acute events overnight. Patient awaiting for placement 01/13. No new issues. Awaiting placement 01/14. No new issues. Awaiting placement. 01/15. No new issues. Awaiting placement. 01/16. No new issues. Patient remain stable. Awaiting placement. Check maintenance labs. 01/17. Routine maintenance labs were ordered and are still pending. Await placement. 01/18. Patient with low-grade fever past 24-48 hrs. WBC within normal limits. Check chest x-ray, urinalysis and consider blood cultures. Continue tracheostomy care, secretion control and airway management. Patient currently with PEG and tube feedings at 60 cc an hour. Nutritional support and aspiration precautions. 01/19. Temperature 100.7 overnight. Continue to monitor closely. Continue tracheostomy care, secretion control and airway management. Patient currently with PEG and tube feedings at 60 cc an hour. Nutritional support and aspiration precautions. 01/20. Continue to monitor closely. Continue tracheostomy care, secretion control and airway management. Patient currently with PEG and tube feedings at 60 cc an hour. Nutritional support and aspiration precautions. 01/21. Afebrile overnight. Continue to monitor closely. Continue tracheostomy care, secretion control and airway management. Patient currently with PEG and tube feedings at 60 cc an hour. Nutritional support and aspiration precautions. 01/22. Continue to monitor closely. Continue tracheostomy care, secretion control and airway management. Patient currently with PEG and tube feedings at 60 cc an hour. Nutritional support and aspiration precautions. 01/23. Continue tracheostomy care, secretion control and airway management. Patient currently with PEG and tube feedings at 60 cc an hour. Nutritional support and aspiration precautions. Will get routine labs tomorrow. 01/24. Labs reviewed. No abnormalities. Continue tracheostomy care, secretion control and airway management. Patient currently with PEG and tube feedings at 60 cc an hour. Nutritional support and aspiration precautions. 01/25. Temp 100.6. More sleepy today. Will get chest xray, blood culture, urinalysis, sputum cultures. Will start on empirical abx. 01/26: Vitals noted, slightly tachycardic. Follow culture work-up, continue supportive care. 01/27: Spiking low-grade temp, negative UA, sputum culture and recent blood cultures also negative. Continue to monitor off antibiotics. Continue supportive care. Pending placement. 01/28: cont to spike low grade temp, negative UA, sputum culture and recent blood cultures also negative. Continue to monitor off antibiotics. will order fpr sinus xry. Continue supportive care. Pending placement. 01/29: Continue to follow clinically, intermittently spiking low-grade temp, all recent culture work is negative, negative UA, normal respiratory jaylan 1 tracheal aspirate. Vitals noted and currently stable. Pending placement 01/30: Clinically unchanged, continue to monitor vitals, continue supportive cares. Pending placement. Discussed plan of care with RN at the bedside. 01/31 - TODATE: cont supportive care, pending placement. monitor vitals carefully. Discussed with family at the bedside. Subjective Date of service: 02/04/21 Principal diagnosis: Eclampsia/HELLP Syndrome, ADOLPH, DIC; s/p , s/p supra cervical hyst Interval history: Patient seen and examined. Medical records and medication list reviewed. No acute event overnight noted by the RN. H&H stable, vitals noted Discussed with RN at the bedside Objective - Exam Narrative Exam: vITAL SIGNS: Reviewed. GENERAL: Trach in place HEAD: No signs of head trauma. EYES: Pupils are equal. NECK: No adenopathy, no JVD. CHEST: Diminished breath sounds CARDIAC: normal S1 and S2, without murmurs, gallops, or rubs. ABDOMEN: Soft, non tender and non distended. No rebound or guarding, and no masses palpated. Bowel Sounds normal MUSCULOSKELETAL: No edema NEUROLOGIC EXAM: nonverbal SKIN: No obvious lesions - Constitutional Vitals: Vital Signs - 12hr 02/04/21 02/04/21 02/04/21 05:03 06:11 08:22 Temperature 99 F Pulse Rate 71 Respiratory 16 Rate Blood Pressure Blood Pressure 87/52 99/60 [Left] O2 Sat by Pulse 98 95 Oximetry O2 Sat by Pulse 96 Oximetry [ Assessment] 02/04/21 02/04/21 02/04/21 09:41 09:42 12:31 Temperature 98.2 F Pulse Rate 103 H 107 H 100 H Respiratory 20 22 Rate Blood Pressure 117/60 113/78 Blood Pressure 117/60 [Left] O2 Sat by Pulse 96 98 Oximetry O2 Sat by Pulse Oximetry [ Assessment] - Labs CBC & Chem 7: 02/03/21 07:17 02/03/21 07:17 HEART Score - HEART Score Age: < 45 Risk factors: 1-2 risk factors - Critical Actions Critical Actions: >7 pts:50-65% risk of adverse cardiac event. Early invasive measures
[2021-02-04] MEDS: ACETAMINOPHEN 325 MG/10.15 ML ORAL LIQD UNIT DOSE FEEDTUBE PRN (21:39)
--- NOTE | 2021-02-05 07:52 | Progress Note ---
Assessment and Plan -DIC (disseminated intravascular coagulation) vs HELLP syndrome Resolved --Possible Eclampsia/HELLP Syndrome Resolved --s/p Cardiac arrest x2 on admission and on 10/07 ACLS protocol followed by revival Echo showed preserved Ef --Anoxic brain injury, Developed following cardiac arrest, continue supportive care --Shock-resolved now awaiting placement s/p pressor support --ADOLPH-resolved Stable --Sepsis 2/2 UTI s/p cefepime to cover possible pseudomonas as sputum is also growing GN rods till 01/04/21 Previous urine culture grew pansensitive ecoli --Hypernatremia, resolved, cont free water with TF --DVT prophylaxis Patient presented with DIC No anticoagulants Overall prognosis extremely poor. Subjective Date of service: 02/05/21 Principal diagnosis: Eclampsia/HELLP Syndrome, ADOLPH, DIC; s/p , s/p supracervical hyst Interval history: 30 year old -[place] female CHE 10/25/20 at 36w5d who presents with seizures in triage on 10/02/20. Pt was not able to provide history but per pt's , she presented to the hospital to return a 24 hour urine specimen for analysis. She then suddenly reported that she did not feel good. She was taken to labor and delivery and shortly after arrival, she began seizing. During this time, a code met was called because the patient became hypoxic. She was then noted to be without a pulse. Chest compressions were started immediately, and the patient was emergently taken to the operating room for delivery of the fetus. Off note, This patient has had care at [facility] with comanagement by [facility] since 11 wks complicated by ADHD, morbid obesity, general ized anxiety disorder, panic attacks, chronic narcotic use, fibromyalgia, GERD, Irritable Bowel Syndrome, Migraines, h/o endometrial ablation and ovarian vein embolization, genital herpes, insomnia, LGA fetus, nausea and vomiting, polyhydramnios, quad screen positive for Down's Syndrome, and previous x 3. She is GBS negative. Today patient resting comfortably no acute distress. Nonverbal 12/03/20 11:30: Pt brought to L&D triage for evaluation of possible labor. Pt accompanied by her spouse. Pt spouse poor historian; unable to obtain history- allergies at this time. Pt taken from registration to triage area via . Pt unresponsive, actively seizing with snorous respirations. comic writer, Kassy, called and requesting assistance. 11:35: Multiple staff at bedside. Pt 02 sat 67% on nonrebreather, unable to read BP at this time. Yifan Theodore CRNA, at bedside for intubation and assistance with IV insertion. INT attempt by multiple RNs unsuccessful at this time. 11:42: Pt being bagged by KORIN, 02% 79%. No pulse palpated, compressions started at this time; bharati young called and Dr. Newberry preparing OR for emergent c/s. 11:44: Continued compressions on stretcher while transporting pt to OR 1. Pt being bagged with jaw thrust manuever in place by KORIN Stringer student. 11:45: Arrival to OR 1. Dr. Newberry and Dr. Portillo present for emergent c/s. Code team arrived for continued care. patient revived and c/s done Patient has been bleeding from C/s site followed by supracervical hysterectomy for severe bleeding Patient transfused multiple units of PRBC, Patient in DIC. Transferred to the ICU 10/03. Patient seen and examined at bedside this morning. Patient is nonresponsive and mechanically ventilated. On pressors. Labs reviewed-has leukocytosis, anemia, thrombocytopenia, ADOLPH and lactic acidosis. Started on IV antibiotics to cover possible sepsis secondary to DIC. Hematology oncology recommendations appreciated-needs additional cryoprecipitate and FFP. Monitor D-dimer, fibrinogen and frequent labs. Nephrology consulted for lactic acidosis and ADOLPH. 10/04. Remains mechanically ventilated. [place] antibiotics. Labs shows improved acidosis - lactic acid 3.5. Hb drop noted. Getting transfused 2 units PRBCs. Platelet count is ~40k. Continue to monitor labs closely. Critical care team on board. 10/05; xray reviewed, concerning for multifocal infilrate, likely underlying Pneumonia, will add ID consult to assist with management of this critically ill patient, start tube feed, closely monitor renal system 10/06: Resumed care, remains on mechanical ventilation. No active bleeding, H&H stable. Continue to monitor CBC and BMP. Continue IV antibiotic for underlying pneumonia. Follow critical care and ID recommendation. 10/07: Remains on mechanical ventilation. No active bleeding, H&H stable. Critical care following, wean off ventilation as tolerated. 10/08: Patient had another cardiac arrest last night. Remains on mechanical ventilation, update family. Continue supportive care -poor prognosis 10/09: Called patient mother and discussed about patient care and management. Answered all question to best of my knowledge and family satisfaction. Patient remains on mechanical ventilation, cardiac arrest x2 so far. Critically sick, poor prognosis 10/10: remains on mechanical ventilation. h/h stable, no active bleeding. monitor CBC/BMP 10/11: WBC trended up with diarrhea, started on vancomycin po. remains on MV, off pressor, tolerating TF 10/12: remains on MV, off pressor, tolerating TF. called family for update but unable to reach, could not leave message as it was full. cont supportive care, wean off vent as tolerated. 10/13/2020; patient is on mechanical ventilation, tolerating tube feeding. Patient has labored breathing. Neuro was consulted and recommend MRI. Patient is on Precedex. Rectal tube in place. 10/14/2020; patient is on mechanical ventilation, Precedex. Patient had fever and blood culture ordered. Patient is on IV vancomycin per ID recommendation. Neuro consulted and recommend MRI. Continue to monitor. Prognosis is guarded. 10/15/2020; patient is on mechanical ventilation, Precedex. Patient had fever and blood culture ordered. Patient is on IV vancomycin per ID recommendation. Neuro consulted and recommend MRI. Continue to monitor. Prognosis is guarded. 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 12/06/20; anoxic brain injury. Awaiting placement. 12/07/2020; anoxic brain injury, awaiting placement. 12/09/2020; anoxic brain injury, awaiting placement. 12/10/2020; patient had episodes of fever overnight. CBC, BMP, blood culture, UA and chest x-ray ordered, will follow and manage accordingly. Urinalysis is suggestive of UTI and I put the patient on ceftriaxone, order urine culture. Chest x-ray is normal. 12/11/2020; patient is on ceftriaxone day 2 for UTI. We will continue to follow urine culture. 12/12/2020. Day #3 of Rocephin for UTI. We will continue for 2 more days while she is here. Present UTI. 12/13/2020. Day #4 of Rocephin for UTI. Patient remains on 50% with tracheostomy. Remains unresponsive with evidence of anoxic encephalopathy unable to make needs known. 12/14/2020. Day #5 of Rocephin for UTI completed today. Remains encephalopathic unable to make needs known. Remains on 50% unable to decrease oxygen via tracheostomy. Overall prognosis remains extremely poor. 12/15: Continue to monitor. Stop and monitor antibiotics at this time. Continue to wean oxygen as tolerated. Wean oxygen as tolerated. Case management working on placement. 12/16: Continue supportive care aspiration precautions. Awaiting placement discussion. Monitor fever curve. Prognosis remains poor no evidence of neurological recovery as of today 12/17: Continue supportive care, check labs and chest xray. Still monitor off antibiotics. Monitor Sodium level 12/18: Patient remains with intermittent low grade fever, reviewed EEG from September again, consistent for Ischemic Hypoxic Encephalopathy, patient with decorticating posturing type presentation. Will discuss with support associate to optimize diet so we can discontinue D5. CXR with no abnormality. Discussed extensively with the nursing staff at bedside CXR IMPRESSION: 1. No acute findings. 12/19: No clinical change 12/20: No clinical change, now off abx, monitor, discussed her medications with our pharmacist I believe that her posture and rigidity is likely from underlying anoxic encephalopathy. Continue to monitor and await placement decision. Continue aggressive suctioning. Plan discussed in detail with the nursing staff 12/21: Continue supportive care. Will give 500 cc bolus of fluid today to replace insensible losses. Tachycardia appears to be improving. Blood pressure precludes adjusting cardiac meds. Still awaiting placement from case management. Plan discussed in detail with the nursing staff 12/22. Continue support supportive care. Tracheostomy and PEG in place. Remains nonresponsive. Awaiting placement. 12/23. Continue support supportive care. Tracheostomy and PEG in place. Remains nonresponsive. Awaiting placement. Remains tachycardic. Decrease dose of lasix. Will try low dose metoprolol. Monitor BP closely 12/24. Continue support supportive care. Tracheostomy and PEG in place. Remains nonresponsive. Awaiting placement. Heart rate slightly better. Continue to monitor BP closely 12/25. Continue support supportive care. Tracheostomy and PEG in place. Remains nonresponsive. Awaiting placement. 12/26. Continue support supportive care. Tracheostomy and PEG in place. Remains nonresponsive. Awaiting placement 12/27. Continue support supportive care. Tracheostomy and PEG in place. Remains nonresponsive. Awaiting placement 12/28. Had fever yesterday. Blood culture drawn. UA - UTI - started on antibiotics. Now tracheal aspirate is growing GN rods. 12/29: Continue IV antibiotics, continue supportive care. Since admission patient has shown minimal or no chance of neurological recovery. Need 24/7 assistance. Currently on trach and PEG, nonverbal. Waiting on SNF placement. Discussed with case hardener today. 12/30: Continue IV antibiotics for UTI, continue supportive care. Pending placement 12/31: continue supportive care. continue supportive care. Pending placement 01/01: continue supportive care. Pending placement. cont Iv abx for UTI till 01/04 01/02: Continue supportive care, pending placement. Sodium level slightly elevated, will start hypotonic fluid. Continue antibiotics till 01/04 01/03; cont hypotonic fluid, increase free water with TF for hypernatremia, follow BMP. cont supportive care. pending placement. cont cefepime. recx blood 01/04: resolved hyponatremia, cont supportive care, pending placement. Last day of supplement today. 01/05: Continue supportive care, pending placement. Monitor H&H and fever curve off antibiotic. 01/06; monitor off abx, suction as needed, Continue supportive care, pending placement. 01/07: Discharge pending on placement, vitals stable. Continue supportive care 01/08: Discharge pending on placement, vitals stable. Continue supportive care. stop lasix, increase metoprolol to 25mg BID for ST. 01/09 patient resting with eyes closed. Opens eyes to tactile stimulus, has a blink reflex, does not follow simple commands, has a T-collar / G-tube Lab results reviewed, low-grade fever, 01/10 Eyes open, does not follow simple commands, no acute events overnight 01/11 no acute events overnight, Waiting for placement 01/12 No acute events overnight. Patient awaiting for placement 01/13. No new issues. Awaiting placement 01/14. No new issues. Awaiting placement. 01/15. No new issues. Awaiting placement. 01/16. No new issues. Patient remain stable. Awaiting placement. Check main tenance labs. 01/17. Routine maintenance labs were ordered and are still pending. Await placement. 01/18. Patient with low-grade fever past 24-48 hrs. WBC within normal limits. Check chest x-ray, urinalysis and consider blood cultures. Continue tracheostomy care, secretion control and airway management. Patient currently with PEG and tube feedings at 60 cc an hour. Nutritional support and aspiration precautions. 01/19. Temperature 100.7 overnight. Continue to monitor closely. Continue tr acheostomy care, secretion control and airway management. Patient currently with PEG and tube feedings at 60 cc an hour. Nutritional support and aspiration precautions. 01/20. Continue to monitor closely. Continue tracheostomy care, secretion control and airway management. Patient currently with PEG and tube feedings at 60 cc an hour. Nutritional support and aspiration precautions. 01/21. Afebrile overnight. Continue to monitor closely. Continue tracheostomy care, secretion control and airway management. Patient currently with PEG and tube feedings at 60 cc an hour. Nutritional support and aspiration precautions. 01/22. Continue to monitor closely. Continue tracheostomy care, secretion control and airway management. Patient currently with PEG and tube feedings at 60 cc an hour. Nutritional support and aspiration precautions. 01/23. Continue tracheostomy care, secretion control and airway management. Patient currently with PEG and tube feedings at 60 cc an hour. Nutritional support and aspiration precautions. Will get routine labs tomorrow. 01/24. Labs reviewed. No abnormalities. Continue tracheostomy care, secretion control and airway management. Patient currently with PEG and tube feedings at 60 cc an hour. Nutritional support and aspiration precautions. 01/25. Temp 100.6. More sleepy today. Will get chest xray, blood culture, urinalysis, sputum cultures. Will start on empirical abx. 01/26: Vitals noted, slightly tachycardic. Follow culture work-up, continue supportive care. 01/27: Spiking low-grade temp, negative UA, sputum culture and recent blood c ultures also negative. Continue to monitor off antibiotics. Continue supportive care. Pending placement. 01/28: cont to spike low grade temp, negative UA, sputum culture and recent blood cultures also negative. Continue to monitor off antibiotics. will order fpr sinus xry. Continue supportive care. Pending placement. 01/29: Continue to follow clinically, intermittently spiking low-grade temp, all recent culture work is negative, negative UA, normal respiratory jaylan 1 tracheal aspirate. Vitals noted and currently stable. Pending placement 01/30: Clinically unchanged, continue to monitor vitals, continue supportive cares. Pending placement. Discussed plan of care with RN at the bedside. 01/31 - TODATE: cont supportive care, pending placement. monitor vitals carefully. Discussed with family at the bedside. Objective - Constitutional Vitals: Vital Signs - 12hr 02/04/21 02/04/21 02/04/21 21:31 21:38 21:39 Temperature 100.4 F H Pulse Rate 101 H 101 H Respiratory 18 18 Rate Blood Pressure 124/75 Blood Pressure 124/75 [Left] O2 Sat by Pulse 100 Oximetry O2 Sat by Pulse Oximetry [ Assessment] 02/04/21 02/04/21 02/05/21 21:50 22:00 06:14 Temperature 99.3 F Pulse Rate 103 H Respiratory 19 16 Rate Blood Pressure Blood Pressure 131/88 [Left] O2 Sat by Pulse 96 97 Oximetry O2 Sat by Pulse 96 Oximetry [ Assessment] General appearance: Present: no acute distress, well-nourished - EENT Eyes: PERRL, EOM intact ENT: hearing intact, clear oral mucosa Ears: bilateral: normal - Neck Neck: supple, normal ROM - Respiratory Respiratory effort: normal Respiratory: bilateral: CTA - Breasts Breasts: normal - Cardiovascular Rhythm: regular Heart Sounds: Present: S1 & S2. Absent: gallop, rub Extremities: pulses intact, No edema, normal color, Full ROM Extremity abnormal: other (Contracted with dense right hemiparesis nonverbal clear focal deficits.) - Gastrointestinal General gastrointestinal: Present: soft, non-tender, non-distended, normal bowel sounds - Genitourinary Female genitourinary: normal - Integumentary Integumentary: clear, warm, dry - Musculoskeletal Musculoskeletal: right sided weakness - Neurologic Neurologic: focal deficits, other (Dense hemiparesis contracted focal deficits.) - Psychiatric Psychiatric: other (Nonverbal encephalopathic.) - Labs CBC & Chem 7: 02/03/21 07:17 02/03/21 07:17 HEART Score - HEART Score Age: < 45 Risk factors: 1-2 risk factors - Critical Actions Critical Actions: >7 pts:50-65% risk of adverse cardiac event. Early invasive measures
[2021-02-05] MEDS: ENOXAPARIN 40 MG/0.4 ML INJ SUB-Q SCH (10:38)
[2021-02-05] MEDS: METOPROLOL TARTRATE 25 MG TAB PO SCH ×2 (10:39→22:55)
[2021-02-05] MEDS: FAMOTIDINE 20 MG TAB PO SCH ×2 (10:39→22:55)
--- NOTE | 2021-02-06 07:47 | Progress Note ---
Assessment and Plan -DIC (disseminated intravascular coagulation) vs HELLP syndrome Resolved --Possible Eclampsia/HELLP Syndrome Resolved --s/p Cardiac arrest x2 on admission and on 10/07 ACLS protocol followed by revival Echo showed preserved Ef --Anoxic brain injury, Developed following cardiac arrest, continue supportive care --Shock-resolved now awaiting placement s/p pressor support --ADOLPH-resolved Stable --Sepsis 2/2 UTI s/p cefepime to cover possible pseudomonas as sputum is also growing GN rods till 01/04/21 Previous urine culture grew pansensitive ecoli --Hypernatremia, resolved, cont free water with TF --DVT prophylaxis Patient presented with DIC No anticoagulants Overall prognosis remains extremely poor. Subjective Date of service: 02/06/21 Principal diagnosis: Eclampsia/HELLP Syndrome, ADOLPH, DIC; s/p , s/p supracervical hyst Interval history: 30 year old -[place] female CHE 10/25/20 at 36w5d who presents with seizures in triage on 10/02/20. Pt was not able to provide history but per pt's , she presented to the hospital to return a 24 hour urine specimen for analysis. She then suddenly reported that she did not feel good. She was taken to labor and delivery and shortly after arrival, she began seizing. During this time, a code met was called because the patient became hypoxic. She was then noted to be without a pulse. Chest compressions were started immediately, and the patient was emergently taken to the operating room for delivery of the fetus. Off note, This patient has had care at [facility] with comanagement by [facility] since 11 wks complicated by ADHD, morbid obesity, generalized anxiety disorder, panic attacks, chronic narcotic use, fibromyalgia, GERD, Irritable Bowel Syndrome, Migraines, h/o endometrial ablation and ovarian vein embolization, genital herpes, insomnia, LGA fetus, nausea and vomiting, polyhydramnios, quad screen positive for Down's Syndrome, and previous x 3. She is GBS negative. Today patient resting comfortably no acute distress. Nonverbal 12/03/20 11:30: Pt brought to L&D triage for evaluation of possible labor. Pt accompanied by her spouse. Pt spouse poor historian; unable to obtain history- allergies at this time. Pt taken from registration to triage area via WC. Pt unresponsive, actively seizing with snorous respirations. automatic centrifugal station operator, Kassy, called and requesting assistance. 11:35: Multiple staff at bedside. Pt 02 sat 67% on nonrebreather, unable to read BP at this time. Yifan Theodore CRNA, at bedside for intubation and assistance with IV insertion. INT attempt by multiple RNs unsuccessful at this time. 11:42: Pt being bagged by PATTERNMAKER BENCH, 02% 79%. No pulse palpated, compressions started at this time; bharati young called and Dr. Newberry preparing OR for emergent c/s. 11:44: Continued compressions on stretcher while transporting pt to OR 1. Pt being bagged with jaw thrust manuever in place by KORIN Stringer student. 11:45: Arrival to OR 1. Dr. Newberry and Dr. Portillo present for emergent c/s. Code team arrived for continued care. patient revived and c/s done Patient has been bleeding from C/s site followed by supracervical hysterectomy for severe bleeding Patient transfused multiple units of PRBC, Patient in DIC. Transferred to the ICU 10/03. Patient seen and examined at bedside this morning. Patient is no nresponsive and mechanically ventilated. On pressors. Labs reviewed-has leukocytosis, anemia, thrombocytopenia, DAOLPH and lactic acidosis. Started on IV antibiotics to cover possible sepsis secondary to DIC. Hematology oncology recommendations appreciated-needs additional cryoprecipitate and FFP. Monitor D-dimer, fibrinogen and frequent labs. Nephrology consulted for lactic acidosis and ADOLPH. 10/04. Remains mechanically ventilated. Roper antibiotics. Labs shows improved acidosis - lactic acid 3.5. Hb drop noted. Getting transfused 2 units PRBCs. Platelet count is ~40k. Continue to monitor labs closely. Critical care team on board. 10/05; xray reviewed, concerning for multifocal infilrate, likely underlying Pneumonia, will add ID consult to assist with management of this critically ill patient, start tube feed, closely monitor renal system 10/06: Resumed care, remains on mechanical ventilation. No active bleeding, H&H stable. Continue to monitor CBC and BMP. Continue IV antibiotic for underlying pneumonia. Follow critical care and ID recommendation. 10/07: Remains on mechanical ventilation. No active bleeding, H&H stable. Critical care following, wean off ventilation as tolerated. 10/08: Patient had another cardiac arrest last night. Remains on mechanical ventilation, update family. Continue supportive care -poor prognosis 10/09: Called patient mother and discussed about patient care and management. Answered all question to best of my knowledge and family satisfaction. Patient remains on mechanical ventilation, cardiac arrest x2 so far. Critically sick, poor prognosis 10/10: remains on mechanical ventilation. h/h stable, no active bleeding. monitor CBC/BMP 10/11: WBC trended up with diarrhea, started on vancomycin po. remains on MV, off pressor, tolerating TF 10/12: remains on MV, off pressor, tolerating TF. called family for update but unable to reach, could not leave message as it was full. cont supportive care, wean off vent as tolerated. 10/13/2020; patient is on mechanical ventilation, tolerating tube feeding. Patient has labored breathing. Neuro was consulted and recommend MRI. Patient is on Precedex. Rectal tube in place. 10/14/2020; patient is on mechanical ventilation, Precedex. Patient had fever and blood culture ordered. Patient is on IV vancomycin per ID recommendation. Neuro consulted and recommend MRI. Continue to monitor. Prognosis is guarded. 10/15/2020; patient is on mechanical ventilation, Precedex. Patient had fever and blood culture ordered. Patient is on IV vancomycin per ID recommendation. Neuro consulted and recommend MRI. Continue to monitor. Prognosis is guarded. 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 12/06/20; anoxic brain injury. Awaiting placement. 12/07/2020; anoxic brain injury, awaiting placement. 12/09/2020; anoxic brain injury, awaiting placement. 12/10/2020; patient had episodes of fever overnight. CBC, BMP, blood culture, UA and chest x-ray ordered, will follow and manage accordingly. Urinalysis is suggestive of UTI and I put the patient on ceftriaxone, order u rine culture. Chest x-ray is normal. 12/11/2020; patient is on ceftriaxone day 2 for UTI. We will continue to follow urine culture. 12/12/2020. Day #3 of Rocephin for UTI. We will continue for 2 more days while she is here. Present UTI. 12/13/2020. Day #4 of Rocephin for UTI. Patient remains on 50% with tracheostomy. Remains unresponsive with evidence of anoxic encephalopathy unable to make needs known. 12/14/2020. Day #5 of Rocephin for UTI completed today. Remains encephalopathic unable to make needs known. Remains on 50% unable to decrease oxygen via tracheostomy. Overall prognosis remains extremely poor. 3: Continue to monitor. Stop and monitor antibiotics at this time. Continue to wean oxygen as tolerated. Wean oxygen as tolerated. Case management working on placement. 12/16: Continue supportive care aspiration precautions. Awaiting placement discussion. Monitor fever curve. Prognosis remains poor no evidence of neurological recovery as of today 12/17: Continue supportive care, check labs and chest xray. Still monitor off antibiotics. Monitor Sodium level 12/18: Patient remains with intermittent low grade fever, reviewed EEG from September again, consistent for Ischemic Hypoxic Encephalopathy, patient with decorticating posturing type presentation. Will discuss with sponge diver to optimize diet so we can discontinue D5. CXR with no abnormality. Discussed exte nsively with the nursing staff at bedside CXR IMPRESSION: 1. No acute findings. 12/19: No clinical change 12/20: No clinical change, now off abx, monitor, discussed her medications with our pharmacist I believe that her posture and rigidity is likely from underlying anoxic encephalopathy. Continue to monitor and await placement decision. Continue aggressive suctioning. Plan discussed in detail with the nursing staff 12/21: Continue supportive care. Will give 500 cc bolus of fluid today to replace insensible losses. Tachycardia appears to be improving. Blood pressure precludes adjusting cardiac meds. Still awaiting placement from case management. Plan discussed in detail with the nursing staff 12/22. Continue support supportive care. Tracheostomy and PEG in place. Remains nonresponsive. Awaiting placement. 12/23. Continue support supportive care. Tracheostomy and PEG in place. Remains nonresponsive. Awaiting placement. Remains tachycardic. Decrease dose of lasix. Will try low dose metoprolol. Monitor BP closely 12/24. Continue support supportive care. Tracheostomy and PEG in place. Remains nonresponsive. Awaiting placement. Heart rate slightly better. Continue to monitor BP closely 12/25. Continue support supportive care. Tracheostomy and PEG in place. Remains nonresponsive. Awaiting placement. 12/26. Continue support supportive care. Tracheostomy and PEG in place. Remains nonresponsive. Awaiting placement 12/27. Continue support supportive care. Tracheostomy and PEG in place. Remains nonresponsive. Awaiting placement 12/28. Had fever yesterday. Blood culture drawn. UA - UTI - started on antibiotics. Now tracheal aspirate is growing GN rods. 12/29: Continue IV antibiotics, continue supportive care. Since admission patient has shown minimal or no chance of neurological recovery. Need 24/7 assistance. Currently on trach and PEG, nonverbal. Waiting on SNF placement. Discussed with web production manager today. 12/30: Continue IV antibiotics for UTI, continue supportive care. Pending placement 12/31: continue supportive care. continue supportive care. Pending placement 01/01: continue supportive care. Pending placement. cont Iv abx for UTI till 01/04 01/02: Continue supportive care, pending placement. Sodium level slightly elevated, will start hypotonic fluid. Continue antibiotics till 01/04 01/03; cont hypotonic fluid, increase free water with TF for hypernatremia, follow BMP. cont supportive care. pending placement. cont cefepime. recx blood 01/04: resolved hyponatremia, cont supportive care, pending placement. Last day of supplement today. 01/05: Continue supportive care, pending placement. Monitor H&H and fever curve off antibiotic. 01/06; monitor off abx, suction as needed, Continue supportive care, pending placement. 01/07: Discharge pending on placement, vitals stable. Continue supportive care 01/08: Discharge pending on placement, vitals stable. Continue supportive care. stop lasix, increase metoprolol to 25mg BID for ST. 01/09 patient resting with eyes closed. Opens eyes to tactile stimulus, has a blink reflex, does not follow simple commands, has a T-collar / G-tube Lab results reviewed, low-grade fever, 01/10 Eyes open, does not follow simple commands, no acute events overnight 01/11 no acute events overnight, Waiting for placement 01/12 No acute events overnight. Patient awaiting for placement 01/13. No new issues. Awaiting placement 01/14. No new issues. Awaiting placement. 01/15. No new issues. Awaiting placement. 01/16. No new issues. Patient remain stable. Awaiting placement. Check maintenance labs. 01/17. Routine maintenance labs were ordered and are still pending. Await teressa cement. 01/18. Patient with low-grade fever past 24-48 hrs. WBC within normal limits. Check chest x-ray, urinalysis and consider blood cultures. Continue tracheostomy care, secretion control and airway management. Patient currently with PEG and tube feedings at 60 cc an hour. Nutritional support and aspiration precautions. 01/19. Temperature 100.7 overnight. Continue to monitor closely. Continue tracheostomy care, secretion control and airway management. Patient currently with PEG and tube feedings at 60 cc an hour. Nutritional support and aspiration precautions. 01/20. Continue to monitor closely. Continue tracheostomy care, secretion control and airway management. Patient currently with PEG and tube feedings at 60 cc an hour. Nutritional support and aspiration precautions. 01/21. Afebrile overnight. Continue to monitor closely. Continue tracheostomy care, secretion control and airway management. Patient currently with PEG and tube feedings at 60 cc an hour. Nutritional support and aspiration precautions. 01/22. Continue to monitor closely. Continue tracheostomy care, secretion control and airway management. Patient currently with PEG and tube feedings at 60 cc an hour. Nutritional support and aspiration precautions. 01/23. Continue tracheostomy care, secretion control and airway management. Patient currently with PEG and tube feedings at 60 cc an hour. Nutritional support and aspiration precautions. Will get routine labs tomorrow. 01/24. Labs reviewed. No abnormalities. Continue tracheostomy care, secretion control and airway management. Patient currently with PEG and tube feedings at 60 cc an hour. Nutritional support and aspiration precautions. 01/25. Temp 100.6. More sleepy today. Will get chest xray, blood culture, urinalysis, sputum cultures. Will start on empirical abx. 01/26: Vitals noted, slightly tachycardic. Follow culture work-up, continue supportive care. 01/27: Spiking low-grade temp, negative UA, sputum culture and recent blood cultures also negative. Continue to monitor off antibiotics. Continue supportive care. Pending placement. 01/28: cont to spike low grade temp, negative UA, sputum culture and recent blood cultures also negative. Continue to monitor off antibiotics. will order fpr sinus xry. Continue supportive care. Pending placement. 01/29: Continue to follow clinically, intermittently spiking low-grade temp, all recent culture work is negative, negative UA, normal respiratory jaylan 1 tracheal aspirate. Vitals noted and currently stable. Pending placement 01/30: Clinically unchanged, continue to monitor vitals, continue supportive cares. Pending placement. Discussed plan of care with RN at the bedside. 01/31 - TODATE: cont supportive care, pending placement. monitor vitals carefully. Discussed with family at the bedside. 02/06. Patient afebrile today. Continue trach care. Secretions stable today. Culture data negative so far. Awaiting placement. Objective - Constitutional Vitals: Vital Signs - 12hr 02/05/21 02/05/21 02/06/21 22:00 22:53 00:14 Temperature 100.2 F H 99.3 F Pulse Rate 108 H 94 H Respiratory 18 15 Rate Blood Pressure 106/70 104/64 O2 Sat by Pulse 97 98 99 Oximetry O2 Sat by Pulse Oximetry [ Assessment] 02/06/21 02/06/21 03:44 04:00 Temperature 99.1 F Pulse Rate 103 H Respiratory 17 Rate Blood Pressure 103/68 O2 Sat by Pulse 96 Oximetry O2 Sat by Pulse 97 Oximetry [ Assessment] General appearance: Present: no acute distress - EENT Eyes: PERRL - Respiratory Respiratory: bilateral: CTA - Cardiovascular Rhythm: regular Extremities: No edema - Integumentary Integumentary: clear, warm, dry - Musculoskeletal Musculoskeletal: right sided weakness, generalized weakness - Neurologic Neurologic: focal deficits - Labs CBC & Chem 7: 02/03/21 07:17 02/03/21 07:17 Labs: Abnormal lab results 02/06/21 Range/Units 06:42 POC Glucose 112 H (70-105) mg/dL HEART Score - HEART Score Age: < 45 Risk factors: 1-2 risk factors - Critical Actions Critical Actions: >7 pts:50-65% risk of adverse cardiac event. Early invasive measures
[2021-02-06] MEDS: ENOXAPARIN 40 MG/0.4 ML INJ SUB-Q SCH (11:14)
[2021-02-06] MEDS: METOPROLOL TARTRATE 25 MG TAB PO SCH ×2 (11:15→21:55)
[2021-02-06] MEDS: FAMOTIDINE 20 MG TAB PO SCH ×2 (11:15→21:56)
[2021-02-06] MEDS: DEXTROSE 5% IN WATER 1,000 ML IV SCH (11:25)
[2021-02-06] MEDS: ACETAMINOPHEN 325 MG/10.15 ML ORAL LIQD UNIT DOSE FEEDTUBE PRN ×2 (15:02→21:55)
--- NOTE | 2021-02-07 09:13 | Progress Note ---
Assessment and Plan -DIC (disseminated intravascular coagulation) vs HELLP syndrome Resolved --Possible Eclampsia/HELLP Syndrome Resolved --s/p Cardiac arrest x2 on admission and on 10/07 ACLS protocol followed by revival Echo showed preserved Ef --Anoxic brain injury, Developed following cardiac arrest, continue supportive care --Shock-resolved now awaiting placement s/p pressor support --ADOLPH-resolved Stable --Sepsis 2/2 UTI s/p cefepime to cover possible pseudomonas as sputum is also growing GN rods till 01/04/21 Previous urine culture grew pansensitive ecoli --Hypernatremia, resolved, cont free water with TF --DVT prophylaxis Patient presented with DIC No anticoagulants Overall prognosis remains extremely poor. Subjective Date of service: 02/07/21 Principal diagnosis: Eclampsia/HELLP Syndrome, ADOLPH, DIC; s/p , s/p supracervical hyst Interval history: 30 year old -[place] female CHE 10/25/20 at 36w5d who presents with seizures in triage on 10/02/20. Pt was not able to provide history but per pt's , she presented to the hospital to return a 24 hour urine specimen for analysis. She then suddenly reported that she did not feel good. She was taken to labor and delivery and shortly after arrival, she began seizing. During this time, a code met was called because the patient became hypoxic. She was then noted to be without a pulse. Chest compressions were started immediately, and the patient was emergently taken to the operating room for delivery of the fetus. Off note, This patient has had care at [facility] with comanagement by [facility] since 11 wks complicated by ADHD, morbid obesity, generalized anxiety disorder, panic attacks, chronic narcotic use, fibromyalgia, GERD, Irritable Bowel Syndrome, Migraines, h/o endometrial ablation and ovarian vein embolization, genital herpes, insomnia, LGA fetus, nausea and vomiting, polyhydramnios, quad screen positive for Down's Syndrome, and previous x 3. She is GBS negative. Today patient resting comfortably no acute distress. Nonverbal 12/03/20 11:30: Pt brought to L&D triage for evaluation of possible labor. Pt accompanied by her spouse. Pt spouse poor historian; unable to obtain history- allergies at this time. Pt taken from registration to triage area via WC. Pt unresponsive, actively seizing with snorous respirations. forge helper, Ksasy, called and requesting assistance. 11:35: Multiple staff at bedside. Pt 02 sat 67% on nonrebreather, unable to read BP at this time. Yifan Theodore CRNA, at bedside for intubation and assistance with IV insertion. INT attempt by multiple RNs unsuccessful at this time. 11:42: Pt being bagged by GUN STOCK CHECKER, 02% 79%. No pulse palpated, compressions started at this time; bharati young called and Dr. Newberry preparing OR for emergent c/s. 11:44: Continued compressions on stretcher while transporting pt to OR 1. Pt being bagged with jaw thrust manuever in place by KORIN Stringer student. 11:45: Arrival to OR 1. Dr. Newberry and Dr. Portillo present for emergent c/s. Code team arrived for continued care. patient revived and c/s done Patient has been bleeding from C/s site followed by supracervical hysterectomy for severe bleeding Patient transfused multiple units of PRBC, Patient in DIC. Transferred to the ICU 10/03. Patient seen and examined at bedside this morning. Patient is no nresponsive and mechanically ventilated. On pressors. Labs reviewed-has leukocytosis, anemia, thrombocytopenia, ADOLPH and lactic acidosis. Started on IV antibiotics to cover possible sepsis secondary to DIC. Hematology oncology recommendations appreciated-needs additional cryoprecipitate and FFP. Monitor D-dimer, fibrinogen and frequent labs. Nephrology consulted for lactic acidosis and ADOLPH. 10/04. Remains mechanically ventilated. [place] antibiotics. Labs shows improved acidosis - lactic acid 3.5. Hb drop noted. Getting transfused 2 units PRBCs. Platelet count is ~40k. Continue to monitor labs closely. Critical care team on board. 10/05; xray reviewed, concerning for multifocal infilrate, likely underlying Pneumonia, will add ID consult to assist with management of this critically ill patient, start tube feed, closely monitor renal system 10/06: Resumed care, remains on mechanical ventilation. No active bleeding, H&H stable. Continue to monitor CBC and BMP. Continue IV antibiotic for underlying pneumonia. Follow critical care and ID recommendation. 10/07: Remains on mechanical ventilation. No active bleeding, H&H stable. Critical care following, wean off ventilation as tolerated. 10/08: Patient had another cardiac arrest last night. Remains on mechanical ventilation, update family. Continue supportive care -poor prognosis 10/09: Called patient mother and discussed about patient care and management. Answered all question to best of my knowledge and family satisfaction. Patient remains on mechanical ventilation, cardiac arrest x2 so far. Critically sick, poor prognosis 10/10: remains on mechanical ventilation. h/h stable, no active bleeding. monitor CBC/BMP 10/11: WBC trended up with diarrhea, started on vancomycin po. remains on MV, off pressor, tolerating TF 10/12: remains on MV, off pressor, tolerating TF. called family for update but unable to reach, could not leave message as it was full. cont supportive care, wean off vent as tolerated. 10/13/2020; patient is on mechanical ventilation, tolerating tube feeding. Patient has labored breathing. Neuro was consulted and recommend MRI. Patient is on Precedex. Rectal tube in place. 10/14/2020; patient is on mechanical ventilation, Precedex. Patient had fever and blood culture ordered. Patient is on IV vancomycin per ID recommendation. Neuro consulted and recommend MRI. Continue to monitor. Prognosis is guarded. 10/15/2020; patient is on mechanical ventilation, Precedex. Patient had fever and blood culture ordered. Patient is on IV vancomycin per ID recommendation. Neuro consulted and recommend MRI. Continue to monitor. Prognosis is guarded. 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 12/06/20; anoxic brain injury. Awaiting placement. 12/07/2020; anoxic brain injury, awaiting placement. 12/09/2020; anoxic brain injury, awaiting placement. 12/10/2020; patient had episodes of fever overnight. CBC, BMP, blood culture, UA and chest x-ray ordered, will follow and manage accordingly. Urinalysis is suggestive of UTI and I put the patient on ceftriaxone, order u rine culture. Chest x-ray is normal. 12/11/2020; patient is on ceftriaxone day 2 for UTI. We will continue to follow urine culture. 12/12/2020. Day #3 of Rocephin for UTI. We will continue for 2 more days while she is here. Present UTI. 12/13/2020. Day #4 of Rocephin for UTI. Patient remains on 50% with tracheostomy. Remains unresponsive with evidence of anoxic encephalopathy unable to make needs known. 12/14/2020. Day #5 of Rocephin for UTI completed today. Remains encephalopathic unable to make needs known. Remains on 50% unable to decrease oxygen via tracheostomy. Overall prognosis remains extremely poor. 3: Continue to monitor. Stop and monitor antibiotics at this time. Continue to wean oxygen as tolerated. Wean oxygen as tolerated. Case management working on placement. 12/16: Continue supportive care aspiration precautions. Awaiting placement discussion. Monitor fever curve. Prognosis remains poor no evidence of neurological recovery as of today 12/17: Continue supportive care, check labs and chest xray. Still monitor off antibiotics. Monitor Sodium level 12/18: Patient remains with intermittent low grade fever, reviewed EEG from September again, consistent for Ischemic Hypoxic Encephalopathy, patient with decorticating posturing type presentation. Will discuss with underwater hunter to optimize diet so we can discontinue D5. CXR with no abnormality. Discussed exte nsively with the nursing staff at bedside CXR IMPRESSION: 1. No acute findings. 12/19: No clinical change 12/20: No clinical change, now off abx, monitor, discussed her medications with our pharmacist I believe that her posture and rigidity is likely from underlying anoxic encephalopathy. Continue to monitor and await placement decision. Continue aggressive suctioning. Plan discussed in detail with the nursing staff 12/21: Continue supportive care. Will give 500 cc bolus of fluid today to replace insensible losses. Tachycardia appears to be improving. Blood pressure precludes adjusting cardiac meds. Still awaiting placement from case management. Plan discussed in detail with the nursing staff 12/22. Continue support supportive care. Tracheostomy and PEG in place. Remains nonresponsive. Awaiting placement. 12/23. Continue support supportive care. Tracheostomy and PEG in place. Remains nonresponsive. Awaiting placement. Remains tachycardic. Decrease dose of lasix. Will try low dose metoprolol. Monitor BP closely 12/24. Continue support supportive care. Tracheostomy and PEG in place. Remains nonresponsive. Awaiting placement. Heart rate slightly better. Continue to monitor BP closely 12/25. Continue support supportive care. Tracheostomy and PEG in place. Remains nonresponsive. Awaiting placement. 12/26. Continue support supportive care. Tracheostomy and PEG in place. Remains nonresponsive. Awaiting placement 12/27. Continue support supportive care. Tracheostomy and PEG in place. Remains nonresponsive. Awaiting placement 12/28. Had fever yesterday. Blood culture drawn. UA - UTI - started on antibiotics. Now tracheal aspirate is growing GN rods. 12/29: Continue IV antibiotics, continue supportive care. Since admission patient has shown minimal or no chance of neurological recovery. Need 24/7 assistance. Currently on trach and PEG, nonverbal. Waiting on SNF placement. Discussed with hospice case manager today. 12/30: Continue IV antibiotics for UTI, continue supportive care. Pending placement 12/31: continue supportive care. continue supportive care. Pending placement 01/01: continue supportive care. Pending placement. cont Iv abx for UTI till 01/04 01/02: Continue supportive care, pending placement. Sodium level slightly elevated, will start hypotonic fluid. Continue antibiotics till 01/04 01/03; cont hypotonic fluid, increase free water with TF for hypernatremia, follow BMP. cont supportive care. pending placement. cont cefepime. recx blood 01/04: resolved hyponatremia, cont supportive care, pending placement. Last day of supplement today. 01/05: Continue supportive care, pending placement. Monitor H&H and fever curve off antibiotic. 01/06; monitor off abx, suction as needed, Continue supportive care, pending placement. 01/07: Discharge pending on placement, vitals stable. Continue supportive care 01/08: Discharge pending on placement, vitals stable. Continue supportive care. stop lasix, increase metoprolol to 25mg BID for ST. 01/09 patient resting with eyes closed. Opens eyes to tactile stimulus, has a blink reflex, does not follow simple commands, has a T-collar / G-tube Lab results reviewed, low-grade fever, 01/10 Eyes open, does not follow simple commands, no acute events overnight 01/11 no acute events overnight, Waiting for placement 01/12 No acute events overnight. Patient awaiting for placement 01/13. No new issues. Awaiting placement 01/14. No new issues. Awaiting placement. 01/15. No new issues. Awaiting placement. 01/16. No new issues. Patient remain stable. Awaiting placement. Check maintenance labs. 01/17. Routine maintenance labs were ordered and are still pending. Await teressa cement. 01/18. Patient with low-grade fever past 24-48 hrs. WBC within normal limits. Check chest x-ray, urinalysis and consider blood cultures. Continue tracheostomy care, secretion control and airway management. Patient currently with PEG and tube feedings at 60 cc an hour. Nutritional support and aspiration precautions. 01/19. Temperature 100.7 overnight. Continue to monitor closely. Continue tracheostomy care, secretion control and airway management. Patient currently with PEG and tube feedings at 60 cc an hour. Nutritional support and aspiration precautions. 01/20. Continue to monitor closely. Continue tracheostomy care, secretion control and airway management. Patient currently with PEG and tube feedings at 60 cc an hour. Nutritional support and aspiration precautions. 01/21. Afebrile overnight. Continue to monitor closely. Continue tracheostomy care, secretion control and airway management. Patient currently with PEG and tube feedings at 60 cc an hour. Nutritional support and aspiration precautions. 01/22. Continue to monitor closely. Continue tracheostomy care, secretion control and airway management. Patient currently with PEG and tube feedings at 60 cc an hour. Nutritional support and aspiration precautions. 01/23. Continue tracheostomy care, secretion control and airway management. Patient currently with PEG and tube feedings at 60 cc an hour. Nutritional support and aspiration precautions. Will get routine labs tomorrow. 01/24. Labs reviewed. No abnormalities. Continue tracheostomy care, secretion control and airway management. Patient currently with PEG and tube feedings at 60 cc an hour. Nutritional support and aspiration precautions. 01/25. Temp 100.6. More sleepy today. Will get chest xray, blood culture, urinalysis, sputum cultures. Will start on empirical abx. 01/26: Vitals noted, slightly tachycardic. Follow culture work-up, continue supportive care. 01/27: Spiking low-grade temp, negative UA, sputum culture and recent blood cultures also negative. Continue to monitor off antibiotics. Continue supportive care. Pending placement. 01/28: cont to spike low grade temp, negative UA, sputum culture and recent blood cultures also negative. Continue to monitor off antibiotics. will order fpr sinus xry. Continue supportive care. Pending placement. 01/29: Continue to follow clinically, intermittently spiking low-grade temp, all recent culture work is negative, negative UA, normal respiratory jaylan 1 tracheal aspirate. Vitals noted and currently stable. Pending placement 01/30: Clinically unchanged, continue to monitor vitals, continue supportive cares. Pending placement. Discussed plan of care with RN at the bedside. 01/31 - TODATE: cont supportive care, pending placement. monitor vitals carefully. Discussed with family at the bedside. 02/06. Patient afebrile today. Continue trach care. Secretions stable today. Culture data negative so far. Awaiting placement. 02/07. Awaiting placement awaiting family member to evaluate papers. Continue trach care secretions stable. Pending placement Objective - Constitutional Vitals: Vital Signs - 12hr 02/06/21 02/07/21 21:35 04:53 Temperature 99.4 F 98.8 F Pulse Rate 114 H 93 H Respiratory 20 18 Rate Blood Pressure 111/77 109/69 O2 Sat by Pulse 98 100 Oximetry General appearance: Present: no acute distress, well-nourished, other (Chronically ill) - Respiratory Respiratory: bilateral: CTA Extremities: abnormal Extremity abnormal: other (Contractures generalized weakness trace edema) - Musculoskeletal Musculoskeletal: generalized weakness - Neurologic Neurologic: other - Psychiatric Psychiatric: other (Focal deficits) - Labs CBC & Chem 7: 02/03/21 07:17 02/03/21 07:17 Labs: Abnormal lab results 02/06/21 Range/Units 23:32 POC Glucose 113 H (70-105) mg/dL HEART Score - HEART Score Age: < 45 Risk factors: 1-2 risk factors - Critical Actions Critical Actions: >7 pts:50-65% risk of adverse cardiac event. Early invasive measures
[2021-02-07] MEDS: ENOXAPARIN 40 MG/0.4 ML INJ SUB-Q SCH (10:02)
[2021-02-07] MEDS: FAMOTIDINE 20 MG TAB PO SCH ×2 (10:02→22:31)
[2021-02-07] MEDS: METOPROLOL TARTRATE 25 MG TAB PO SCH ×2 (10:13→22:31)
[2021-02-07] MEDS: ACETAMINOPHEN 325 MG/10.15 ML ORAL LIQD UNIT DOSE FEEDTUBE PRN (16:10)
[2021-02-07] MEDS: DEXTROSE 5% IN WATER 1,000 ML IV SCH (16:11)
[2021-02-08] MEDS: ACETAMINOPHEN 325 MG/10.15 ML ORAL LIQD UNIT DOSE FEEDTUBE PRN ×3 (00:02→23:44)
[2021-02-08 07:28] LABS: Blood Urea Nitrogen 11 mg/dL (7-17); Calcium 9.3 mg/dL (8.4-10.2); Hemolysis Index 0
[2021-02-08 07:34] LABS: BUN/Creatinine Ratio 22
--- NOTE | 2021-02-08 08:22 | Progress Note ---
Subjective Date of service: 02/08/21 Principal diagnosis: Eclampsia/HELLP Syndrome, ADOLPH, DIC; s/p , s/p supracervical hyst Interval history: 30 year old -[place] female CHE 10/25/20 at 36w5d who presents with seizures in triage on 10/02/20. Pt was not able to provide history but per pt's , she presented to the hospital to return a 24 hour urine specimen for analysis. She then suddenly reported that she did not feel good. She was taken to labor and delivery and shortly after arrival, she began seizing. During this time, a code met was called because the patient became hypoxic. She was then noted to be without a pulse. Chest compressions were started immediately, and the patient was emergently taken to the operating room for delivery of the fetus. Off note, This patient has had care at [facility] with comanagement by [facility] since 11 wks complicated by ADHD, morbid obesity, generalized anxiety disorder, panic attacks, chronic narcotic use, fibromyalgia, GERD, Irritable Bowel Syndrome, Migraines, h/o endometrial ablation and ovarian vein embolization, genital herpes, insomnia, LGA fetus, nausea and vomiting, polyhydramnios, quad screen positive for Down's Syndrome, and previous x 3. She is GBS negative. Today patient resting comfortably no acute distress. Nonverbal 12/03/20 11:30: Pt brought to L&D triage for evaluation of possible labor. Pt accompanied by her spouse. Pt spouse poor historian; unable to obtain history- allergies at this time. Pt taken from registration to triage area via WC. Pt unresponsive, actively seizing with snorous respirations. vault service mechanic, Kassy, called and requesting assistance. 11:35: Multiple staff at bedside. Pt 02 sat 67% on nonrebreather, unable to read BP at this time. Yifan Theodore CRNA, at bedside for intubation and assistance with IV insertion. INT attempt by multiple RNs unsuccessful at this time. 11:42: Pt being bagged by KORIN, 02% 79%. No pulse palpated, compressions started at this time; bharati young called and Dr. Newberry preparing OR for emergent c/s. 11:44: Continued compressions on stretcher while transporting pt to OR 1. Pt being bagged with jaw thrust manuever in place by KORIN Stringer student. 11:45: Arrival to OR 1. Dr. Newberry and Dr. Portillo present for emergent c/s. Code team arrived for continued care. patient revived and c/s done Patient has been bleeding from C/s site followed by supracervical hysterectomy for severe bleeding Patient transfused multiple units of PRBC, Patient in DIC. Transferred to the ICU 10/03. Patient seen and examined at bedside this morning. Patient is nonresponsive and mechanically ventilated. On pressors. Labs reviewed-has leukocytosis, anemia, thrombocytopenia, ADOLPH and lactic acidosis. Started on IV antibiotics to cover possible sepsis secondary to DIC. Hematology oncology recommendations appreciated-needs additional cryoprecipitate and FFP. Monitor D-dimer, fibrinogen and frequent labs. Nephrology consulted for lactic acidosis and ADOLPH. 10/04. Remains mechanically ventilated. Kevin antibiotics. Labs shows improved acidosis - lactic acid 3.5. Hb drop noted. Getting transfused 2 units PRBCs. Platelet count is ~40k. Continue to monitor labs closely. Critical care team on board. 10/05; xray reviewed, concerning for multifocal infilrate, likely underlying Pneumonia, will add ID consult to assist with management of this critically ill patient, start tube feed, closely monitor renal system 10/06: Resumed care, remains on mechanical ventilation. No active bleeding, H&H stable. Continue to monitor CBC and BMP. Continue IV antibiotic for underlying pneumonia. Follow critical care and ID recommendation. 10/07: Remains on mechanical ventilation. No active bleeding, H&H stable. Critical care following, wean off ventilation as tolerated. 10/08: Patient had another cardiac arrest last night. Remains on mechanical ventilation, update family. Continue supportive care -poor prognosis 10/09: Called patient mother and discussed about patient care and management. Answered all question to best of my knowledge and family satisfaction. Patient remains on mechanical ventilation, cardiac arrest x2 so far. Critically sick, poor prognosis 10/10: remains on mechanical ventilation. h/h stable, no active bleeding. monitor CBC/BMP 10/11: WBC trended up with diarrhea, started on vancomycin po. remains on MV, off pressor, tolerating TF 10/12: remains on MV, off pressor, tolerating TF. called family for update but unable to reach, could not leave message as it was full. cont supportive care, wean off vent as tolerated. 10/13/2020; patient is on mechanical ventilation, tolerating tube feeding. Patient has labored breathing. Neuro was consulted and recommend MRI. Patient is on Precedex. Rectal tube in place. 10/14/2020; patient is on mechanical ventilation, Precedex. Patient had fever and blood culture ordered. Patient is on IV vancomycin per ID recommendation. Neuro consulted and recommend MRI. Continue to monitor. Prognosis is guarded. 10/15/2020; patient is on mechanical ventilation, Precedex. Patient had fever and blood culture ordered. Patient is on IV vancomycin per ID recommendation. Neuro consulted and recommend MRI. Continue to monitor. Prognosis is guarded. 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 12/06/20; anoxic brain injury. Awaiting placement. 12/07/2020; anoxic brain injury, awaiting placement. 12/09/2020; anoxic brain injury, awaiting placement. 12/10/2020; patient had episodes of fever overnight. CBC, BMP, blood culture, UA and chest x-ray ordered, will follow and manage accordingly. Urinalysis is suggestive of UTI and I put the patient on ceftriaxone, order urine culture. Chest x-ray is normal. 12/11/2020; patient is on ceftriaxone day 2 for UTI. We will continue to follow urine culture. 12/12/2020. Day #3 of Rocephin for UTI. We will continue for 2 more days while she is here. Present UTI. 12/13/2020. Day #4 of Rocephin for UTI. Patient remains on 50% with tracheostomy. Remains unresponsive with evidence of anoxic encephalopathy unable to make needs known. 12/14/2020. Day #5 of Rocephin for UTI completed today. Remains encephalopathic unable to make needs known. Remains on 50% unable to decrease oxygen via tracheostomy. Overall prognosis remains extremely poor. 3/2: Continue to monitor. Stop and monitor antibiotics at this time. Continue to wean oxygen as tolerated. Wean oxygen as tolerated. Case management working on placement. 33: Continue supportive care aspiration precautions. Awaiting placement discussion. Monitor fever curve. Prognosis remains poor no evidence of neurological recovery as of today 3/4: Continue supportive care, check labs and chest xray. Still monitor off an tibiotics. Monitor Sodium level 12/18: Patient remains with intermittent low grade fever, reviewed EEG from September again, consistent for Ischemic Hypoxic Encephalopathy, patient with decorticating posturing type presentation. Will discuss with hydraulic lift driver to optimize diet so we can discontinue D5. CXR with no abnormality. Discussed extensively with the nursing staff at bedside CXR IMPRESSION: 1. No acute findings. 12/19: No clinical change 12/20: No clinical change, now off abx, monitor, discussed her medications with our pharmacist I believe that her posture and rigidity is likely from underlying anoxic encephalopathy. Continue to monitor and await placement decision. Continue aggressive suctioning. Plan discussed in detail with the nursing staff 12/21: Continue supportive care. Will give 500 cc bolus of fluid today to replace insensible losses. Tachycardia appears to be improving. Blood pressure precludes adjusting cardiac meds. Still awaiting placement from case management. Plan discussed in detail with the nursing staff 12/22. Continue support supportive care. Tracheostomy and PEG in place. Remains nonresponsive. Awaiting placement. 12/23. Continue support supportive care. Tracheostomy and PEG in place. Remains nonresponsive. Awaiting placement. Remains tachycardic. Decrease dose of lasix. Will try low dose metoprolol. Monitor BP closely 12/24. Continue support supportive care. Tracheostomy and PEG in place. Remains nonresponsive. Awaiting placement. Heart rate slightly better. Continue to monitor BP closely 12/25. Continue support supportive care. Tracheostomy and PEG in place. Remains nonresponsive. Awaiting placement. 12/26. Continue support supportive care. Tracheostomy and PEG in place. Remains nonresponsive. Awaiting placement 12/27. Continue support supportive care. Tracheostomy and PEG in place. Remains nonresponsive. Awaiting placement 12/28. Had fever yesterday. Blood culture drawn. UA - UTI - started on antibiotics. Now tracheal aspirate is growing GN rods. 12/29: Continue IV antibiotics, continue supportive care. Since admission patient has shown minimal or no chance of neurological recovery. Need 24/7 assistance. Currently on trach and PEG, nonverbal. Waiting on SNF placement. Discussed with case investigator today. 12/30: Continue IV antibiotics for UTI, continue supportive care. Pending placement 12/31: continue supportive care. continue supportive care. Pending placement 01/01: continue supportive care. Pending placement. cont Iv abx for UTI till 01/04 01/02: Continue supportive care, pending placement. Sodium level slightly elevated, will start hypotonic fluid. Continue antibiotics till 01/04 01/03; cont hypotonic fluid, increase free water with TF for hypernatremia, follow BMP. cont supportive care. pending placement. cont cefepime. recx blood 01/04: resolved hyponatremia, cont supportive care, pending placement. Last day of supplement today. 01/05: Continue supportive care, pending placement. Monitor H&H and fever curve off antibiotic. 01/06; monitor off abx, suction as needed, Continue supportive care, pending placement. 01/07: Discharge pending on placement, vitals stable. Continue supportive care 01/08: Discharge pending on placement, vitals stable. Continue supportive care. stop lasix, increase metoprolol to 25mg BID for ST. 01/09 patient resting with eyes closed. Opens eyes to tactile stimulus, has a blink reflex, does not follow simple commands, has a T-collar / G-tube Lab results reviewed, low-grade fever, 01/10 Eyes open, does not follow simple commands, no acute events overnight 01/11 no acute events overnight, Waiting for placement 01/12 No acute events overnight. Patient awaiting for placement 01/13. No new issues. Awaiting placement 01/14. No new issues. Awaiting placement. 01/15. No new issues. Awaiting placement. 01/16. No new issues. Patient remain stable. Awaiting placement. Check maintenance labs. 01/17. Routine maintenance labs were ordered and are still pending. Await placement. 01/18. Patient with low-grade fever past 24-48 hrs. WBC within normal limits. Check chest x-ray, urinalysis and consider blood cultures. Continue trach eostomy care, secretion control and airway management. Patient currently with PEG and tube feedings at 60 cc an hour. Nutritional support and aspiration precautions. 01/19. Temperature 100.7 overnight. Continue to monitor closely. Continue tracheostomy care, secretion control and airway management. Patient currently with PEG and tube feedings at 60 cc an hour. Nutritional support and aspiration precautions. 01/20. Continue to monitor closely. Continue tracheostomy care, secretion control and airway management. Patient currently with PEG and tube feedings at 60 cc an hour. Nutritional support and aspiration precautions. 01/21. Afebrile overnight. Continue to monitor closely. Continue tracheostomy care, secretion control and airway management. Patient currently with PEG and tube feedings at 60 cc an hour. Nutritional support and aspiration precautions. 01/22. Continue to monitor closely. Continue tracheostomy care, secretion control and airway management. Patient currently with PEG and tube feedings at 60 cc an hour. Nutritional support and aspiration precautions. 01/23. Continue tracheostomy care, secretion control and airway management. Patient currently with PEG and tube feedings at 60 cc an hour. Nutritional support and aspiration precautions. Will get routine labs tomorrow. 01/24. Labs reviewed. No abnormalities. Continue tracheostomy care, secretion control and airway management. Patient currently with PEG and tube feedings at 60 cc an hour. Nutritional support and aspiration precautions. 01/25. Temp 100.6. More sleepy today. Will get chest xray, blood culture, urinalysis, sputum cultures. Will start on empirical abx. 01/26: Vitals noted, slightly tachycardic. Follow culture work-up, continue supportive care. 01/27: Spiking low-grade temp, negative UA, sputum culture and recent blood cultures also negative. Continue to monitor off antibiotics. Continue supportive care. Pending placement. 01/28: cont to spike low grade temp, negative UA, sputum culture and recent blood cultures also negative. Continue to monitor off antibiotics. will order fpr sinus xry. Continue supportive care. Pending placement. 01/29: Continue to follow clinically, intermittently spiking low-grade temp, all recent culture work is negative, negative UA, normal respiratory jaylan 1 tracheal aspirate. Vitals noted and currently stable. Pending placement 01/30: Clinically unchanged, continue to monitor vitals, continue supportive cares. Pending placement. Discussed plan of care with RN at the bedside. 01/31 - TODATE: cont supportive care, pending placement. monitor vitals carefully. Discussed with family at the bedside. 02/06. Patient afebrile today. Continue trach care. Secretions stable today. Culture data negative so far. Awaiting placement. 02/07. Awaiting placement awaiting family member to evaluate papers. Continue trach care secretions stable. Pending placement Objective - Constitutional Vitals: Vital Signs - 12hr 0402/08/21 02/08/21 23:00 00:45 01:44 Temperature 102.2 F H 100.8 F H Pulse Rate 100 H Respiratory 20 Rate Blood Pressure 115/75 O2 Sat by Pulse 99 Oximetry O2 Sat by Pulse 98 Oximetry [ Assessment] 02/08/21 02/08/21 02/08/21 02:25 06:41 06:52 Temperature 98.0 F 103.0 F H Pulse Rate 122 H Respiratory 20 Rate Blood Pressure 124/68 O2 Sat by Pulse 100 84 Oximetry O2 Sat by Pulse Oximetry [ Assessment] - Labs CBC & Chem 7: 02/03/21 07:17 02/08/21 06:17 Labs: Abnormal lab results 02/07/21 02/07/21 02/07/21 Range/Units 11:49 16:47 22:59 Sodium (137-145) mmol/L Chloride (98-107) mmol/L Creatinine (0.6-1.2) mg/dL Glucose (65-100) mg/dL POC Glucose 109 H 106 H 106 H (70-105) mg/dL 02/08/21 Range/Units 06:17 Sodium 132 L (137-145) mmol/L Chloride 94.2 L (98-107) mmol/L Creatinine 0.5 L (0.6-1.2) mg/dL Glucose 101 H (65-100) mg/dL POC Glucose (70-105) mg/dL HEART Score - HEART Score Age: < 45 Risk factors: 1-2 risk factors - Critical Actions Critical Actions: >7 pts:50-65% risk of adverse cardiac event. Early invasive measures
[2021-02-08] MEDS: ENOXAPARIN 40 MG/0.4 ML INJ SUB-Q SCH (10:32)
[2021-02-08] MEDS: FAMOTIDINE 20 MG TAB PO SCH ×2 (10:32→21:47)
[2021-02-08] MEDS: METOPROLOL TARTRATE 25 MG TAB PO SCH ×2 (10:32→21:47)
[2021-02-09] MEDS: DEXTROSE 5% IN WATER 1,000 ML IV SCH (03:16)
[2021-02-09 11:27] LABS: Hematocrit 39.4 % (30.3-42.9); Hemoglobin 13.2 gm/dl (10.1-14.3); Mean Corpuscular HGB Conc 33 % (30-34); Mean Corpuscular Volume 73 fl (79-97); Platelet Count 264 K/mm3 (140-440); Red Blood Count 5.37 M/mm3 (3.65-5.03); Red Cell Distribution Width 14.1 % (13.2-15.2)
[2021-02-09] MEDS: ENOXAPARIN 40 MG/0.4 ML INJ SUB-Q SCH (12:09)
[2021-02-09] MEDS: FAMOTIDINE 20 MG TAB PO SCH ×2 (12:09→22:15)
[2021-02-09] MEDS: METOPROLOL TARTRATE 25 MG TAB PO SCH ×2 (12:11→22:15)
[2021-02-09 12:18] LABS: Hypochromasia 1+; Total Cells Counted 100
[2021-02-09 12:19] LABS: Large Platelets Few; Platelet Estimate Consistent w Auto
[2021-02-09 12:23] LABS: Blood Urea Nitrogen 13 mg/dL (7-17); Calcium 9.5 mg/dL (8.4-10.2); Hemolysis Index 21
[2021-02-09 12:27] LABS: BUN/Creatinine Ratio 26
--- NOTE | 2021-02-09 13:00 | Progress Note ---
Assessment and Plan Assessment and plan: 30 year old -Dominican female CHE 10/25/20 at 36w5d who presents with seizures in triage on 10/02/20. Pt was not able to provide history but per pt's , she presented to the hospital to return a 24 hour urine specimen for analysis. She then suddenly reported that she did not feel good. She was taken to labor and delivery and shortly after arrival, she began seizing. During this time, a code met was called because the patient became hypoxic. She was then noted to be without a pulse. Chest compressions were started immediately, and the patient was emergently taken to the operating room for delivery of the fetus. Off note, This patient has had care at [facility] with comanagement by [facility] since 11 wks complicated by ADHD, morbid obesity, generalized anxiety disorder, panic attacks, chronic narcotic use, fibromyalgia, GERD, Irritable Bowel Syndrome, Migraines, h/o endometrial ablation and ovarian vein embolization, genital herpes, insomnia, LGA fetus, nausea and vomiting, polyhydramnios, quad screen positive for Down's Syndrome, and previous x 3. She is GBS negative. Today patient resting comfortably no acute distress. Nonverbal 12/03/20 11:30: Pt brought to L&D triage for evaluation of possible labor. Pt accompanied by her spouse. Pt spouse poor historian; unable to obtain history- allergies at this time. Pt taken from registration to triage area via WC. Pt unresponsive, actively seizing with snorous respirations. gasoline attendant, Kassy, called and requesting assistance. 11:35: Multiple staff at bedside. Pt 02 sat 67% on nonrebreather, unable to read BP at this time. Yifan Theodore CRNA, at bedside for intubation and assistance with IV insertion. INT attempt by multiple RNs unsuccessful at this time. 11:42: Pt being bagged by KORIN, 02% 79%. No pulse palpated, compressions started at this time; bharati young called and Dr. Newberry preparing OR for emergent c/s. 11:44: Continued compressions on stretcher while transporting pt to OR 1. Pt being bagged with jaw thrust manuever in place by KORIN Stringer student. 11:45: Arrival to OR 1. Dr. Newberry and Dr. Portillo present for emergent c/s. Code team arrived for continued care. patient revived and c/s done Patient has been bleeding from C/s site followed by supracervical hysterectomy for severe bleeding Patient transfused multiple units of PRBC, Patient in DIC. Transferred to the ICU 10/03. Patient seen and examined at bedside this morning. Patient is nonresponsive and mechanically ventilated. On pressors. Labs reviewed-has leukocytosis, anemia, thrombocytopenia, ADOLPH and lactic acidosis. Started on IV antibiotics to cover possible sepsis secondary to DIC. Hematology oncology recommendations appreciated-needs additional cryoprecipitate and FFP. Monitor D-dimer, fibrinogen and frequent labs. Nephrology consulted for lactic acidosis and ADOLPH. 10/04. Remains mechanically ventilated. Kevin antibiotics. Labs shows improved acidosis - lactic acid 3.5. Hb drop noted. Getting transfused 2 units PRBCs. Platelet count is ~40k. Continue to monitor labs closely. Critical care team on board. 10/05; xray reviewed, concerning for multifocal infilrate, likely underlying P neumonia, will add ID consult to assist with management of this critically ill patient, start tube feed, closely monitor renal system 10/06: Resumed care, remains on mechanical ventilation. No active bleeding, H&H stable. Continue to monitor CBC and BMP. Continue IV antibiotic for underlying pneumonia. Follow critical care and ID recommendation. 10/07: Remains on mechanical ventilation. No active bleeding, H&H stable. Critical care following, wean off ventilation as tolerated. 10/08: Patient had another cardiac arrest last night. Remains on mechanical ventilation, update family. Continue supportive care -poor prognosis 10/09: Called patient mother and discussed about patient care and management. Answered all question to best of my knowledge and family satisfaction. Patient remains on mechanical ventilation, cardiac arrest x2 so far. Critically sick, poor prognosis 10/10: remains on mechanical ventilation. h/h stable, no active bleeding. monitor CBC/BMP 10/11: WBC trended up with diarrhea, started on vancomycin po. remains on MV, off pressor, tolerating TF 10/12: remains on MV, off pressor, tolerating TF. called family for update but unable to reach, could not leave message as it was full. cont supportive care, wean off vent as tolerated. 10/13/2020; patient is on mechanical ventilation, tolerating tube feeding. Patient has labored breathing. Neuro was consulted and recommend MRI. Patient is on Precedex. Rectal tube in place. 10/14/2020; patient is on mechanical ventilation, Precedex. Patient had fever and blood culture ordered. Patient is on IV vancomycin per ID recommendation. Neuro consulted and recommend MRI. Continue to monitor. Prognosis is guarded. 10/15/2020; patient is on mechanical ventilation, Precedex. Patient had fever and blood culture ordered. Patient is on IV vancomycin per ID recommendation. Neuro consulted and recommend MRI. Continue to monitor. Prognosis is guarded. 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 12/06/20; anoxic brain injury. Awaiting placement. 12/07/2020; anoxic brain injury, awaiting placement. 12/09/2020; anoxic brain injury, awaiting placement. 12/10/2020; patient had episodes of fever overnight. CBC, BMP, blood culture, UA and chest x-ray ordered, will follow and manage accordingly. Urinalysis is suggestive of UTI and I put the patient on ceftriaxone, order urine culture. Chest x-ray is normal. 12/11/2020; patient is on ceftriaxone day 2 for UTI. We will continue to follow urine culture. 12/12/2020. Day #3 of Rocephin for UTI. We will continue for 2 more days while she is here. Present UTI. 12/13/2020. Day #4 of Rocephin for UTI. Patient remains on 50% with tracheo stomy. Remains unresponsive with evidence of anoxic encephalopathy unable to make needs known. 12/14/2020. Day #5 of Rocephin for UTI completed today. Remains encephalopathic unable to make needs known. Remains on 50% unable to decrease oxygen via tracheostomy. Overall prognosis remains extremely poor. 32: Continue to monitor. Stop and monitor antibiotics at this time. Continue to wean oxygen as tolerated. Wean oxygen as tolerated. Case management working on placement. 12/16: Continue supportive care aspiration precautions. Awaiting placement discussion. Monitor fever curve. Prognosis remains poor no evidence of neurological recovery as of today 34: Continue supportive care, check labs and chest xray. Still monitor off antibiotics. Monitor Sodium level 12/18: Patient remains with intermittent low grade fever, reviewed EEG from September again, consistent for Ischemic Hypoxic Encephalopathy, patient with decorticating posturing type presentation. Will discuss with rack room worker to o ptimize diet so we can discontinue D5. CXR with no abnormality. Discussed extensively with the nursing staff at bedside CXR IMPRESSION: 1. No acute findings. 12/19: No clinical change 12/20: No clinical change, now off abx, monitor, discussed her medications with our pharmacist I believe that her posture and rigidity is likely from underlying anoxic encephalopathy. Continue to monitor and await placement decision. Continue aggressive suctioning. Plan discussed in detail with the nursing staff 12/21: Continue supportive care. Will give 500 cc bolus of fluid today to replace insensible losses. Tachycardia appears to be improving. Blood pressure precludes adjusting cardiac meds. Still awaiting placement from case management. Plan discussed in detail with the nursing staff 12/22. Continue support supportive care. Tracheostomy and PEG in place. Remains nonresponsive. Awaiting placement. 12/23. Continue support supportive care. Tracheostomy and PEG in place. Remains nonresponsive. Awaiting placement. Remains tachycardic. Decrease dose of lasix. Will try low dose metoprolol. Monitor BP closely 12/24. Continue support supportive care. Tracheostomy and PEG in place. Remains nonresponsive. Awaiting placement. Heart rate slightly better. Continue to monitor BP closely 12/25. Continue support supportive care. Tracheostomy and PEG in place. Remains nonresponsive. Awaiting placement. 12/26. Continue support supportive care. Tracheostomy and PEG in place. Remains nonresponsive. Awaiting placement 12/27. Continue support supportive care. Tracheostomy and PEG in place. Remains nonresponsive. Awaiting placement 12/28. Had fever yesterday. Blood culture drawn. UA - UTI - started on antibiotics. Now tracheal aspirate is growing GN rods. 12/29: Continue IV antibiotics, continue supportive care. Since admission patient has shown minimal or no chance of neurological recovery. Need 24/7 assistance. Currently on trach and PEG, nonverbal. Waiting on SNF placement. Discussed with manager land today. 12/30: Continue IV antibiotics for UTI, continue supportive care. Pending placement 12/31: continue supportive care. continue supportive care. Pending placement 01/01: continue supportive care. Pending placement. cont Iv abx for UTI till 01/04 01/02: Continue supportive care, pending placement. Sodium level slightly elevated, will start hypotonic fluid. Continue antibiotics till 01/04 01/03; cont hypotonic fluid, increase free water with TF for hypernatremia, follow BMP. cont supportive care. pending placement. cont cefepime. recx blood 01/04: resolved hyponatremia, cont supportive care, pending placement. Last day of supplement today. 01/05: Continue supportive care, pending placement. Monitor H&H and fever curve off antibiotic. 01/06; monitor off abx, suction as needed, Continue supportive care, pending placement. 01/07: Discharge pending on placement, vitals stable. Continue supportive care 01/08: Discharge pending on placement, vitals stable. Continue supportive care. stop lasix, increase metoprolol to 25mg BID for ST. 01/09 patient resting with eyes closed. Opens eyes to tactile stimulus, has a blink reflex, does not follow simple commands, has a T-collar / G-tube Lab results reviewed, low-grade fever, 01/10 Eyes open, does not follow simple commands, no acute events overnight 01/11 no acute events overnight, Waiting for placement 01/12 No acute events overnight. Patient awaiting for placement 01/13. No new issues. Awaiting placement 01/14. No new issues. Awaiting placement. 01/15. No new issues. Awaiting placement. 01/16. No new issues. Patient remain stable. Awaiting placement. Check maintenance labs. 01/17. Routine maintenance labs were ordered and are still pending. Await placement. 01/18. Patient with low-grade fever past 24-48 hrs. WBC within normal limits. Check chest x-ray, urinalysis and consider blood cultures. Continue tracheostomy care, secretion control and airway management. Patient currently with PEG and tube feedings at 60 cc an hour. Nutritional support and aspiration precautions. 01/19. Temperature 100.7 overnight. Continue to monitor closely. Continue tracheostomy care, secretion control and airway management. Patient currently with PEG and tube feedings at 60 cc an hour. Nutritional support and aspiration precautions. 01/20. Continue to monitor closely. Continue tracheostomy care, secretion control and airway management. Patient currently with PEG and tube feedings at 60 cc an hour. Nutritional support and aspiration precautions. 01/21. Afebrile overnight. Continue to monitor closely. Continue tracheostomy care, secretion control and airway management. Patient currently with PEG and tube feedings at 60 cc an hour. Nutritional support and aspiration precautions. 01/22. Continue to monitor closely. Continue tracheostomy care, secretion control and airway management. Patient currently with PEG and tube feedings at 60 cc an hour. Nutritional support and aspiration precautions. 01/23. Continue tracheostomy care, secretion control and airway management. Patient currently with PEG and tube feedings at 60 cc an hour. Nutritional support and aspiration precautions. Will get routine labs tomorrow. 01/24. Labs reviewed. No abnormalities. Continue tracheostomy care, secretion control and airway management. Patient currently with PEG and tube feedings at 60 cc an hour. Nutritional support and aspiration precautions. 01/25. Temp 100.6. More sleepy today. Will get chest xray, blood culture, urinalysis, sputum cultures. Will start on empirical abx. 01/26: Vitals noted, slightly tachycardic. Follow culture work-up, continue supportive care. 01/27: Spiking low-grade temp, negative UA, sputum culture and recent blood cultures also negative. Continue to monitor off antibiotics. Continue supportive care. Pending placement. 01/28: cont to spike low grade temp, negative UA, sputum culture and recent blood cultures also negative. Continue to monitor off antibiotics. will order fpr sinus xry. Continue supportive care. Pending placement. 01/29: Continue to follow clinically, intermittently spiking low-grade temp, all recent culture work is negative, negative UA, normal respiratory jaylan 1 tracheal aspirate. Vitals noted and currently stable. Pending placement 01/30: Clinically unchanged, continue to monitor vitals, continue supportive cares. Pending placement. Discussed plan of care with RN at the bedside. 01/31 - TODATE: cont supportive care, pending placement. monitor vitals carefully. Discussed with family at the bedside. 02/06. Patient afebrile today. Continue trach care. Secretions stable today. Culture data negative so far. Awaiting placement. 02/07. Awaiting placement awaiting family member to evaluate papers. Continue trach care secretions stable. Pending placement 02/09: Intermittent fever, ?drug related, will check cxr and also labs. No new complaints. History Interval history: Patient seen and examined, Low grade fever. Hospitalist Physical - Physical exam Narrative exam: General appearance: Present: no acute distress, well-nourished, other (Chronically ill) - Respiratory Respiratory: bilateral: CTA Extremities: abnormal Extremity abnormal: other (Contractures generalized weakness trace edema) CHEST: Rales posteriorly - Musculoskeletal Musculoskeletal: generalized weakness - Neurologic Neurologic: other - Psychiatric Psychiatric: other (Focal deficits) - Constitutional Vitals: Temp Pulse Resp BP Pulse Ox 99.7 F H 104 H 20 116/79 97 02/09/21 11:46 02/09/21 12:11 02/09/21 11:46 02/09/21 12:11 02/09/21 12:09 General appearance: Present: no acute distress, well-nourished, other (Chronically ill) HEART Score - HEART Score Age: < 45 Risk factors: 1-2 risk factors - Critical Actions Critical Actions: >7 pts:50-65% risk of adverse cardiac event. Early invasive measures Results - Labs CBC & Chem 7: 02/09/21 10:59 02/09/21 10:59 Labs: Laboratory Last Values WBC 6.3 K/mm3 (4.5-11.0) 02/09/21 10:59 RBC 5.37 M/mm3 (3.65-5.03) H 02/09/21 10:59 Hgb 13.2 gm/dl (10.1-14.3) 02/09/21 10:59 Hgb Comment See scanned result 10/04/20 Unknown Hct 39.4 % (30.3-42.9) 02/09/21 10:59 MCV 73 fl (79-97) L 02/09/21 10:59 MCH 25 pg (28-32) L 02/09/21 10:59 MCHC 33 % (30-34) 02/09/21 10:59 RDW 14.1 % (13.2-15.2) 02/09/21 10:59 Plt Count 264 K/mm3 (140-440) 02/09/21 10:59 Lymph % (Auto) 26.7 % (13.4-35.0) 01/29/21 05:47 Collin % (Auto) Precision Dyer 02/09/21 10:59 Eos % (Auto) 1.6 % (0.0-4.3) 01/29/21 05:47 Baso % (Auto) 0.4 % (0.0-1.8) 01/29/21 05:47 Lymph # (Auto) 2.1 K/mm3 (1.2-5.4) 01/29/21 05:47 Collin # (Auto) 0.8 K/mm3 (0.0-0.8) 01/29/21 05:47 Eos # (Auto) 0.1 K/mm3 (0.0-0.4) 01/29/21 05:47 Baso # (Auto) 0.0 K/mm3 (0.0-0.1) 01/29/21 05:47 Add Manual Diff Complete 02/09/21 10:59 Total Counted 100 02/09/21 10:59 Seg Neutrophils % 61.0 % (40.0-70.0) 01/29/21 05:47 Seg Neuts % (Manual) 58.0 % (40.0-70.0) 02/09/21 10:59 Band Neutrophils % 2.0 % 10/15/20 05:50 Lymphocytes % (Manual) 29.0 % (13.4-35.0) 02/09/21 10:59 Reactive Lymphs % (Man) 1.0 % 10/02/20 12:18 Monocytes % (Manual) 13.0 % (0.0-7.3) H 02/09/21 10:59 Eosinophils % (Manual) 1.0 % (0.0-4.3) 10/29/20 07:56 Myelocytes % 2.0 % 10/02/20 13:05 Metamyelocytes % 1.0 % 10/14/20 04:00 Nucleated RBC % Not Reportable 02/09/21 10:59 Seg Neutrophils # 4.7 K/mm3 (1.8-7.7) 01/29/21 05:47 Seg Neutrophils # Man 3.7 K/mm3 (1.8-7.7) 02/09/21 10:59 Band Neutrophils # 0.0 K/mm3 02/09/21 10:59 Lymphocytes # (Manual) 1.8 K/mm3 (1.2-5.4) 02/09/21 10:59 Abs React Lymphs (Man) 0.0 K/mm3 02/09/21 10:59 Monocytes # (Manual) 0.8 K/mm3 (0.0-0.8) 02/09/21 10:59 Eosinophils # (Manual) 0.0 K/mm3 (0.0-0.4) 02/09/21 10:59 Basophils # (Manual) 0.0 K/mm3 (0.0-0.1) 02/09/21 10:59 Metamyelocytes # 0.0 K/mm3 02/09/21 10:59 Myelocytes # 0.0 K/mm3 02/09/21 10:59 Promyelocytes # 0.0 K/mm3 02/09/21 10:59 Blast Cells # 0.0 K/mm3 02/09/21 10:59 WBC Morphology Not Reportable 02/09/21 10:59 Hypersegmented Neuts Not Reportable 02/09/21 10:59 Hyposegmented Neuts Not Reportable 02/09/21 10:59 Hypogranular Neuts Not Reportable 02/09/21 10:59 Smudge Cells Not Reportable 02/09/21 10:59 Toxic Granulation Not Reportable 02/09/21 10:59 Toxic Vacuolation Not Reportable 02/09/21 10:59 Dohle Bodies Not Reportable 02/09/21 10:59 Pelger-Huet Anomaly Not Reportable 02/09/21 10:59 Ester Rods Not Reportable 02/09/21 10:59 Platelet Estimate Consistent w auto 02/09/21 10:59 Clumped Platelets Not Reportable 02/09/21 10:59 Plt Clumps, EDTA Not Reportable 02/09/21 10:59 Large Platelets Few 02/09/21 10:59 Giant Platelets Not Reportable 02/09/21 10:59 Platelet Satelliting Not Reportable 02/09/21 10:59 Plt Morphology Comment Not Reportable 02/09/21 10:59 RBC Morphology Not Reportable 02/09/21 10:59 Dimorphic RBCs Not Reportable 02/09/21 10:59 Polychromasia Not Reportable 02/09/21 10:59 Hypochromasia 1+ 02/09/21 10:59 Poikilocytosis Not Reportable 02/09/21 10:59 Anisocytosis Not Reportable 02/09/21 10:59 Microcytosis Not Reportable 02/09/21 10:59 Macrocytosis Not Reportable 02/09/21 10:59 Spherocytes Not Reportable 02/09/21 10:59 Pappenheimer Bodies Not Reportable 02/09/21 10:59 Sickle Cells Not Reportable 02/09/21 10:59 Target Cells Not Reportable 02/09/21 10:59 Tear Drop Cells Not Reportable 02/09/21 10:59 Ovalocytes Not Reportable 02/09/21 10:59 Stomatocytes Few 10/14/20 04:00 Helmet Cells Not Reportable 02/09/21 10:59 [place] Bodies Not Reportable 02/09/21 10:59 Gerry Rings Not Reportable 02/09/21 10:59 [place] Cells Not Reportable 02/09/21 10:59 Bite Cells Not Reportable 02/09/21 10:59 Crenated Cell Not Reportable 02/09/21 10:59 Elliptocytes Not Reportable 02/09/21 10:59 Acanthocytes (Spur) Not Reportable 02/09/21 10:59 Rouleaux Not Reportable 02/09/21 10:59 Hemoglobin C Crystals Not Reportable 02/09/21 10:59 Schistocytes Not Reportable 02/09/21 10:59 Malaria parasites Not Reportable 02/09/21 10:59 Sickle Cell Solubility See scanned result 10/04/20 Unknown Hemoglobin A See scanned result 10/04/20 Unknown Hemoglobin A2 See scanned result 10/04/20 Unknown Hemoglobin A2 Prime See scanned result 10/04/20 Unknown Hemoglobin C See scanned result 10/04/20 Unknown Hemoglobin D See scanned result 10/04/20 Unknown Hemoglobin E See scanned result 10/04/20 Unknown Hgb F Diffential Stain See scanned result 10/04/20 Unknown Hemoglobin F Quant See scanned result 10/04/20 Unknown Hemoglobin G See scanned result 10/04/20 Unknown Hemoglobin S See scanned result 10/04/20 Unknown Hemoglobin O-Beverly See scanned result 10/04/20 Unknown Hemoglobin [place] See scanned result 10/04/20 Unknown Hemoglobin Analilia See scanned result 10/04/20 Unknown Variant Hemoglobin See scanned result 10/04/20 Unknown Abnorm Hgb IEF Confirm See scanned result 10/04/20 Unknown Hemoglobin Interpret See scanned result 10/04/20 Unknown Hemoglobinopathy Note See scanned result 10/04/20 Unknown Sharad Bodies Not Reportable 02/09/21 10:59 Hem Pathologist Commnt No 02/09/21 10:59 PT 13.6 Sec. (12.2-14.9) 10/21/20 13:54 INR 1.06 (0.87-1.13) 10/21/20 13:54 APTT 31.6 Sec. (24.2-36.6) 10/03/20 00:40 Fibrinogen 336 mg/dl (211-480) 10/04/20 10:00 D-Dimer 1974.47 ng/mlDDU (0-234) H 11/11/20 13:50 ABG pH 7.459 pH Units (7.350-7.450) H 10/26/20 10:30 POC ABG pCO2 20.7 mmHg (32.0-48.0) L 10/13/20 07:18 ABG pCO2 32.4 mm Hg 10/26/20 10:30 POC ABG pO2 137.9 mmHg (83-108) H 10/13/20 07:18 ABG pO2 112.2 mm Hg (80.0-90.0) H 10/26/20 10:30 POC ABG HCO3 14.8 10/13/20 07:18 ABG HCO3 22.5 mmol/L (20.0-26.0) 10/26/20 10:30 ABG O2 Saturation 98.2 % (95.0-99.0) 10/26/20 10:30 ABG O2 Content 18.5 (0.0-44) 10/26/20 10:30 POC ABG Base Excess -6.9 10/13/20 07:18 ABG Base Excess -0.6 mmol/L (-2.0-3.0) 10/26/20 10:30 ABG Hemoglobin 13.5 gm/dl (12.0-16.0) 10/26/20 10:30 ABG Oxyhemoglobin 98.3 (94-98) H 10/13/20 07:18 ABG Carboxyhemoglobin 1.3 % (0.0-5.0) 10/26/20 10:30 ABG Methemoglobin 0.5 % (0.0-1.5) 10/26/20 10:30 ABG Sodium 135.9 mmol/L (136.0-145.0) L 10/13/20 07:18 ABG Potassium 3.7 mmol/L (3.40-4.50) 10/13/20 07:18 ABG Chloride 111.0 mmol/L (98-107) H 10/13/20 07:18 ABG Glucose 109 mg/dL (65-95) H 10/13/20 07:18 VBG pH 6.949 (7.320-7.420) L* 10/02/20 Unknown Oxyhemoglobin 96.5 % (95.0-99.0) 10/26/20 10:30 Carboxyhemoglobin 0.3 (0.5-1.5) L 10/13/20 07:18 FiO2 25 % 10/26/20 10:30 Sodium 133 mmol/L (137-145) L 02/09/21 10:59 Potassium 5.0 mmol/L (3.6-5.0) 02/09/21 10:59 Chloride 96.9 mmol/L (98-107) L 02/09/21 10:59 Carbon Dioxide 20 mmol/L (22-30) L 02/09/21 10:59 Anion Gap 21 mmol/L 02/09/21 10:59 BUN 13 mg/dL (7-17) 02/09/21 10:59 Creatinine 0.5 mg/dL (0.6-1.2) L 02/09/21 10:59 Estimated GFR > 60 ml/min 02/09/21 10:59 BUN/Creatinine Ratio 26 % 02/09/21 10:59 Glucose 104 mg/dL (65-100) H 02/09/21 10:59 POC Glucose 106 mg/dL (70-105) H 02/09/21 06:27 Random Insulin 43.2 uIU/mL (<=19.6) H 11/02/20 19:19 Proinsulin See scanned result 11/02/20 19:19 C-Peptide 6.23 ng/mL (0.80-3.85) H 11/02/20 19:19 Lactic Acid 1.90 mmol/L (0.7-2.0) 10/04/20 22:00 Uric Acid 7.5 mg/dL (3.5-7.6) 10/02/20 13:05 Calcium 9.5 mg/dL (8.4-10.2) 02/09/21 10:59 Ionized Calcium 4.4 mg/dL (4.8-5.6) L 10/07/20 21:00 Phosphorus 4.60 mg/dL (2.5-4.5) H 11/13/20 10:05 Magnesium 2.10 mg/dL (1.7-2.3) 11/13/20 10:05 Total Bilirubin 0.30 mg/dL (0.1-1.2) 01/24/21 04:18 AST 31 units/L (5-40) 01/24/21 04:18 ALT 21 units/L (7-56) 01/24/21 04:18 Alkaline Phosphatase 92 units/L (35-129) 01/24/21 04:18 Lactate Dehydrogenase 769 units/L (91-180) H 10/02/20 13:05 C-Reactive Protein 0.70 mg/dL (0.00-1.30) 11/11/20 13:50 NT-Pro-B Natriuret Pep 2788 pg/mL (0-450) H 10/04/20 10:00 Total Protein 7.7 g/dL (6.3-8.2) 01/24/21 04:18 Albumin 3.7 g/dL (3.9-5) L 01/24/21 04:18 Albumin/Globulin Ratio 0.9 % 01/24/21 04:18 Procalcitonin < 0.05 ng/mL (<0.15) 12/27/20 20:16 Arterial Blood Glucose 109 mg/dL (65-95) H 10/13/20 07:18 Arterial Blood Ionized Calcium 4.6 mg/dL (4.6-5.3) 10/13/20 07:18 Urine Color Yellow (Yellow) 01/25/21 09:51 Urine Turbidity Cloudy (Clear) 01/25/21 09:51 Urine pH 7.0 (5.0-7.0) 01/25/21 09:51 Ur Specific [place] 1.011 (1.003-1.030) 01/25/21 09:51 Urine Protein <15 mg/dl mg/dL (Negative) 01/25/21 09:51 Urine Glucose (UA) Neg mg/dL (Negative) 01/25/21 09:51 Urine Ketones Neg mg/dL (Negative) 01/25/21 09:51 Urine Blood Neg (Negative) 01/25/21 09:51 Urine Nitrite Neg (Negative) 01/25/21 09:51 Urine Bilirubin Neg (Negative) 01/25/21 09:51 Urine Urobilinogen < 2.0 mg/dL (<2.0) 01/25/21 09:51 Ur Leukocyte Esterase Neg (Negative) 01/25/21 09:51 Urine WBC (Auto) 6.0 /HPF (0.0-6.0) 01/25/21 09:51 Urine RBC (Auto) 3.0 /HPF (0.0-6.0) 01/25/21 09:51 U Epithel Cells (Auto) < 1.0 /HPF (0-13.0) 01/25/21 09:51 Urine Bacteria (Auto) 1+ /HPF (Negative) 01/18/21 08:47 Urine WBC Clumps 3+ /HPF 11/11/20 13:50 Calcium Oxalate Crystal Few 11/11/20 13:50 Urine Mucus Few /HPF 01/25/21 09:51 Urine Yeast (Budding) 2+ /HPF 01/25/21 09:51 Vancomycin Trough 12.6 ug/mL (5.0-20.0) 10/21/20 13:54 Random Vancomycin 10.7 ug/mL (0-40.0) 10/16/20 13:09 Phenytoin 5.7 ug/mL (10.0-20.0) L 10/13/20 07:00 C. difficile Tox (PCR) Positive (Negative) 10/16/20 10:22 Coronavirus (PCR) Negative (Negative) 10/08/20 14:15 Blood Type O POSITIVE 10/02/20 12:50 Antibody Screen Negative 10/02/20 12:50 Crossmatch See Detail 10/02/20 12:50 - Diagnostic Impressions Diagnostic Impressions: Echocardiogram 10/03/20 13:42 Transthoracic Echocardiogram Indication: S/P Cardiac Arrest R/O Cardiomyopathy BP: 133/71 Conclusions *Global left ventricular systolic function is normal. *The estimated ejection fraction is 60-65%. *There is trace of mitral regurgitation. *The right 0heart chambers are both slightly dilated. *There is mild tricuspid regurgitation. *There is mild-moderate pulmonary hypertension. *The right ventricular systolic pressure is calculated at 44 mmHg. *The study quality is technically difficult. Findings Procedure Info: The study quality is technically difficult. The study is technically limited due to patient body habitus. The study was technically limited due to the patient's inability to lay in the left lateral decubitus position. Left Ventricle: The left ventricular chamber size is normal. There is no left ventricular hypertrophy. Global left ventricular systolic function is normal. The estimated ejection fraction is 60-65%. Left Atrium: The left atrial chamber size is normal. Right Ventricle: The right ventricle is slightly dilated. Right Atrium: The right atrium is mildly dilated. Aortic Valve: The aortic valve leaflets are mildly thickened. There is no evidence of aortic regurgitation. There is no evidence of aortic stenosis. Mitral Valve: The mitral valve leaflets are mildly thickened. There is trace of mitral regurgitation. There is no evidence of mitral stenosis. Tricuspid Valve: There is mild tricuspid regurgitation. The right ventricular systolic pressure is calculated at 44 mmHg. There is evidence of mild pulmonary hypertension. Pulmonic Valve: There is trace pulmonic regurgitation. Pericardium: There is no pericardial effusion. Aorta: There is no dilatation of the ascending aorta. There is no dilatation of the aortic root. Venous: The inferior vena cava is dilated. Measurements Chambers 2D Name Value Normal Range IVSd (2D) 1 cm (0.6 - 1.1) LVPWd (2D) 1.01 cm (0.6 - 1.1) LVIDd (2D) 4.58 cm (3.7 - 5.6) LVIDs (2D) 3.17 cm (2 - 3.8) LV FS (2D) 30.93 % - EF Teichholz (2D) 58.66 % - Ao root diameter (2D) 2.94 cm (2 - 3.7) Volumes/Mass Name Value Normal Range LA ESV SP 4CH (A/L) 72.82 ml - LA ESV SP 2CH (A/L) 66.86 ml - LA ESV BP (A/L) 74.49 ml - LA ESV SP 4CH (MOD) 71.03 ml - LA ESV SP 2CH (MOD) 64.3 ml - LV EDV SP 4CH (MOD) 98.82 ml - LV ESV SP 4CH (MOD) 24.8 ml - EF SP 4CH (MOD) 74.9 % - LV EDV SP 2CH (MOD) 86.1 ml - LV ESV SP 2CH (MOD) 36.93 ml - EF SP 2CH (MOD) 57.11 % - LV EDV BP 94.4 ml - LV ESV BP 32.66 ml - BP EF (MOD) 65.4 % - Diastolic/Systolic Function Name Value Normal Range MV E-wave Vmax 1.04 m/sec - MV deceleration time 160.46 msec - MV A-wave Vmax 0.92 m/sec - MV E:A ratio 1.14 ratio - Aortic Valve Name Value Normal Range AV Vmax 2.12 m/sec - AV VTI 22.37 cm - AV peak gradient 17.95 mmHg - AV mean gradient 7.29 mmHg - LVOT diameter 2.01 cm - LVOT Vmax 1.8 m/sec - LVOT VTI 27.17 cm - LVOT peak gradient 12.91 mmHg - LVOT mean gradient 6.83 mmHg - SV LVOT 86.42 ml - ANITA (continuity Vmax) 2.7 cm2 - ANITA (continuity VTI) 3.86 cm2 - Ascending Ao 3.18 cm - Tricuspid Valve Name Value Normal Range TV E-wave Vmax 0.88 m/sec - TR Vmax 3.01 m/sec - TR peak gradient 36.27 mmHg - RAP 8 mmHg - RVSP 44 mmHg - IVC diameter 2.65 cm (1.2 - 2.3) Pulmonic Valve/Qp:Qs Name Value Normal Range PV Vmax 1.22 m/sec - PV peak gradient 5.91 mmHg - RVOT Vmax 0.87 m/sec - RVOT VTI 13.32 cm - RVOT peak gradient 3 mmHg - PV acceleration time 110.37 msec - [place]/IV: Voiding Method Incontinent IV Catheter Type [Right Foot] INT / Saline Lock IV Catheter Type [Left Forearm Peripheral IV ] IV Catheter Type [Left Wrist] INT / Saline Lock IV Catheter Type [Right Hand] INT / Saline Lock IV Catheter Type [Right INT / Saline Lock Antecubital] IV Catheter Type [Right Upper Mid-line arm] IV Catheter Type [Left Triple Lumen Cath Internal Jugular] IV Catheter Type [Left Hand] Peripheral IV IV Catheter Type [Left Peripheral IV Antecubital] Active Medications - Current Medications Current Medications: Generic Name Dose Route Start Last Admin Trade Name Freq PRN Reason Stop Dose Admin Acetaminophen 650 mg 10/05/20 16:34 02/08/21 23:44 Acetaminophen 325 Mg/10.15 Ml Oral Liqd Unit Dose FEEDTUBE 650 mg Q6H PRN Administration Non Cardiac Pain or Temp>100.5 Albuterol 2.5 mg 11/05/20 13:03 11/06/20 13:04 Albuterol 2.5 Mg/3 Ml Nebu IH 2.5 mg Q4HRT PRN Administration Shortness Of Breath Alprazolam 0.25 mg 01/20/21 13:33 02/02/21 18:06 Alprazolam 0.25 Mg Tab PO 0.25 mg Q8H PRN Administration Anxiety Lipase/Protease/Amylase 1 each 10/05/20 11:09 Lipase 10,500/Protease 25,000/Amylase 43,750 (Units) Dr Barakat FEEDTUBE PRN PRN For Clogged Feeding Tube Enoxaparin Sodium 40 mg 10/22/20 10:00 02/09/21 12:09 Enoxaparin 40 Mg/0.4 Ml Inj SUB-Q 40 mg DAILY ERINN Administration Protocol Famotidine 20 mg 10/07/20 10:00 02/09/21 12:09 Famotidine 20 Mg Tab PO 20 mg BID ERINN Administration Hydralazine HCl 20 mg 10/07/20 11:49 10/17/20 07:20 Hydralazine 20 Mg/1 Ml Inj IV 20 mg Q6H PRN Administration SBP >170 Hydrophilic Ointment 1 applic 01/03/21 13:00 Lip Therapy Vaseline TP DIRECT PRN Dry Lips Dextrose 1,000 mls @ 30 mls/hr 01/03/21 12:00 02/09/21 03:16 D5w IV 30 mls/hr DIRECT ERINN Administration Levofloxacin/Dextrose 500 mg in 100 mls @ 100 mls/hr 02/08/21 14:00 02/08/21 15:52 Levaquin 500mg/100ml IV 100 mls/hr Q24H ERINN Administration Protocol Metoprolol Tartrate 50 mg 02/02/21 16:01 02/09/21 12:11 Metoprolol Tartrate 25 Mg Tab PO 50 mg BID ERINN Administration Morphine Sulfate 2 mg 01/20/21 13:33 Morphine 2 Mg/1 Ml Inj IV Q4H PRN Pain, Moderate (4-6) Simple Syrup 15 ml 10/05/20 11:09 Simple Syrup 15 Ml FEEDTUBE PRN PRN Hypoglycemia Simple Syrup 30 ml 10/05/20 11:09 Simple Syrup 15 Ml FEEDTUBE PRN PRN Hypoglycemia Sodium Bicarbonate 325 mg 10/05/20 11:09 12/16/20 08:19 Sodium Bicarbonate 325 Mg Tab FEEDTUBE 325 mg PRN PRN Administration For Clogged Feeding Tube Nutrition/Malnutrition Assess - Dietary Evaluation Nutrition/Malnutrition Findings: Nutrition Notes Start: 10/04/20 11:13 Freq: Status: Active Protocol: Document 02/03/21 09:21 (Rec: 02/03/21 09:25 [email or web address]) Nutrition Notes Initial or Follow up Reassessment Current Diagnosis Respiratory Failure Other Pertinent Diagnosis s/p cardiac arrest x 2, anoxic brain injury Current Diet Promote at 65ml/hr Labs/Tests Reviewed Pertinent Medications D5w at 30 ml/hr Height 5 ft 8 in Weight 97 kg [place] Body Weight (kg) 63.63 BMI 32.5 Weight change and time frame 6% wt loss in 3 months Weight Status Obese Subjective/Other Information FU for stable TF. Pt tolerating. Per RN, TF currently off and about to flush tube/start new bottle. Percent of energy/protein needs met: 100%/98% Burn Absent Trauma Absent GI Symptoms None Difficulty In Swallowing,Chewing Food Allergy Yes Current % PO Negligible Minimum of two criteria Yes Interpretation of Weight Loss (severe) >2% in 1 week Fluid Accumulation Mild (non-severe) #2 Nutrition Diagnosis Malnutrition Diagnosis Progress(for reassessment Continues documentation) #1 Nutrition Diagnosis Inadequate oral intake Diagnosis Progress(for reassessment Continues documentation) Is patient on ventilator? No Is Patient Ambulatory and/or Out of Bed No REE-([facility]-confined to bed) 2076.108 Kcal/Kg value to use for calculation 16 Approximate Energy Requirements Using 1552 kcal/Kg Calculation Used for Recommendations [facility] Additional Notes Pro needs 1.25-1.5 g/kg adjBW: 100-120g/day Fluid needs 1ml/kcal Nutrition Intervention Change Diet Order: Continue Nutrition Support: Promote at 65 ml/hr Flush 50 ml q4h Kcal 1,560 Protein (gm) 98 Fluid (mL) 1,309 Goal #1 TF tolerance Goal #2 TF to meet at least 75% energy and pro needs Anticipated Discharge Needs: Promote at 65 ml/hr Flush 50 ml q4h Follow-Up By: 02/10/21 Additional Comments FU for stable TF
[2021-02-09] MEDS: ACETAMINOPHEN 325 MG/10.15 ML ORAL LIQD UNIT DOSE FEEDTUBE PRN (22:20)
[2021-02-10] MEDS: FAMOTIDINE 20 MG TAB PO SCH ×2 (09:22→22:44)
[2021-02-10] MEDS: ENOXAPARIN 40 MG/0.4 ML INJ SUB-Q SCH (09:22)
[2021-02-10] MEDS: METOPROLOL TARTRATE 25 MG TAB PO SCH ×2 (09:22→22:43)
[2021-02-10] MEDS ORDERED: ONDANSETRON 4 MG/2 ML INJ IV PRN (11:38)
--- NOTE | 2021-02-10 14:04 | Progress Note ---
Assessment and Plan Assessment and plan: 30 year old -Swazi female CHE 10/25/20 at 36w5d who presents with seizures in triage on 10/02/20. Pt was not able to provide history but per pt's , she presented to the hospital to return a 24 hour urine specimen for analysis. She then suddenly reported that she did not feel good. She was taken to labor and delivery and shortly after arrival, she began seizing. During this time, a code met was called because the patient became hypoxic. She was then noted to be without a pulse. Chest compressions were started immediately, and the patient was emergently taken to the operating room for delivery of the fetus. Off note, This patient has had care at [facility] with comanagement by [facility] since 11 wks complicated by ADHD, morbid obesity, generalized anxiety disorder, panic attacks, chronic narcotic use, fibromyalgia, GERD, Irritable Bowel Syndrome, Migraines, h/o endometrial ablation and ovarian vein embolization, genital herpes, insomnia, LGA fetus, nausea and vomiting, polyhydramnios, quad screen positive for Down's Syndrome, and previous x 3. She is GBS negative. Today patient resting comfortably no acute distress. Nonverbal 12/03/20 11:30: Pt brought to L&D triage for evaluation of possible labor. Pt accompanied by her spouse. Pt spouse poor historian; unable to obtain history- allergies at this time. Pt taken from registration to triage area via WC. Pt unresponsive, actively seizing with snorous respirations. cement truck loader, Kassy, called and requesting assistance. 11:35: Multiple staff at bedside. Pt 02 sat 67% on nonrebreather, unable to read BP at this time. Yifan Theodore CRNA, at bedside for intubation and assistance with IV insertion. INT attempt by multiple RNs unsuccessful at this time. 11:42: Pt being bagged by KORIN, 02% 79%. No pulse palpated, compressions started at this time; bharati young called and Dr. Newberry preparing OR for emergent c/s. 11:44: Continued compressions on stretcher while transporting pt to OR 1. Pt being bagged with jaw thrust manuever in place by KORIN Stringer student. 11:45: Arrival to OR 1. Dr. Newberry and Dr. Portillo present for emergent c/s. Code team arrived for continued care. patient revived and c/s done Patient has been bleeding from C/s site followed by supracervical hysterectomy for severe bleeding Patient transfused multiple units of PRBC, Patient in DIC. Transferred to the ICU 10/03. Patient seen and examined at bedside this morning. Patient is nonresponsive and mechanically ventilated. On pressors. Labs reviewed-has leukocytosis, anemia, thrombocytopenia, ADOLPH and lactic acidosis. Started on IV antibiotics to cover possible sepsis secondary to DIC. Hematology oncology recommendations appreciated-needs additional cryoprecipitate and FFP. Monitor D-dimer, fibrinogen and frequent labs. Nephrology consulted for lactic acidosis and ADOLPH. 10/04. Remains mechanically ventilated. Kevin antibiotics. Labs shows improved acidosis - lactic acid 3.5. Hb drop noted. Getting transfused 2 units PRBCs. Platelet count is ~40k. Continue to monitor labs closely. Critical care team on board. 10/05; xray reviewed, concerning for multifocal infilrate, likely underlying P neumonia, will add ID consult to assist with management of this critically ill patient, start tube feed, closely monitor renal system 10/06: Resumed care, remains on mechanical ventilation. No active bleeding, H&H stable. Continue to monitor CBC and BMP. Continue IV antibiotic for underlying pneumonia. Follow critical care and ID recommendation. 10/07: Remains on mechanical ventilation. No active bleeding, H&H stable. Critical care following, wean off ventilation as tolerated. 10/08: Patient had another cardiac arrest last night. Remains on mechanical ventilation, update family. Continue supportive care -poor prognosis 10/09: Called patient mother and discussed about patient care and management. Answered all question to best of my knowledge and family satisfaction. Patient remains on mechanical ventilation, cardiac arrest x2 so far. Critically sick, poor prognosis 10/10: remains on mechanical ventilation. h/h stable, no active bleeding. monitor CBC/BMP 10/11: WBC trended up with diarrhea, started on vancomycin po. remains on MV, off pressor, tolerating TF 10/12: remains on MV, off pressor, tolerating TF. called family for update but unable to reach, could not leave message as it was full. cont supportive care, wean off vent as tolerated. 10/13/2020; patient is on mechanical ventilation, tolerating tube feeding. Patient has labored breathing. Neuro was consulted and recommend MRI. Patient is on Precedex. Rectal tube in place. 10/14/2020; patient is on mechanical ventilation, Precedex. Patient had fever and blood culture ordered. Patient is on IV vancomycin per ID recommendation. Neuro consulted and recommend MRI. Continue to monitor. Prognosis is guarded. 10/15/2020; patient is on mechanical ventilation, Precedex. Patient had fever and blood culture ordered. Patient is on IV vancomycin per ID recommendation. Neuro consulted and recommend MRI. Continue to monitor. Prognosis is guarded. 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 12/06/20; anoxic brain injury. Awaiting placement. 12/07/2020; anoxic brain injury, awaiting placement. 12/09/2020; anoxic brain injury, awaiting placement. 12/10/2020; patient had episodes of fever overnight. CBC, BMP, blood culture, UA and chest x-ray ordered, will follow and manage accordingly. Urinalysis is suggestive of UTI and I put the patient on ceftriaxone, order urine culture. Chest x-ray is normal. 12/11/2020; patient is on ceftriaxone day 2 for UTI. We will continue to follow urine culture. 12/12/2020. Day #3 of Rocephin for UTI. We will continue for 2 more days while she is here. Present UTI. 12/13/2020. Day #4 of Rocephin for UTI. Patient remains on 50% with tracheo stomy. Remains unresponsive with evidence of anoxic encephalopathy unable to make needs known. 12/14/2020. Day #5 of Rocephin for UTI completed today. Remains encephalopathic unable to make needs known. Remains on 50% unable to decrease oxygen via tracheostomy. Overall prognosis remains extremely poor. 32: Continue to monitor. Stop and monitor antibiotics at this time. Continue to wean oxygen as tolerated. Wean oxygen as tolerated. Case management working on placement. 12/16: Continue supportive care aspiration precautions. Awaiting placement discussion. Monitor fever curve. Prognosis remains poor no evidence of neurological recovery as of today 34: Continue supportive care, check labs and chest xray. Still monitor off antibiotics. Monitor Sodium level 12/18: Patient remains with intermittent low grade fever, reviewed EEG from September again, consistent for Ischemic Hypoxic Encephalopathy, patient with decorticating posturing type presentation. Will discuss with door puller to o ptimize diet so we can discontinue D5. CXR with no abnormality. Discussed extensively with the nursing staff at bedside CXR IMPRESSION: 1. No acute findings. 12/19: No clinical change 12/20: No clinical change, now off abx, monitor, discussed her medications with our pharmacist I believe that her posture and rigidity is likely from underlying anoxic encephalopathy. Continue to monitor and await placement decision. Continue aggressive suctioning. Plan discussed in detail with the nursing staff 12/21: Continue supportive care. Will give 500 cc bolus of fluid today to replace insensible losses. Tachycardia appears to be improving. Blood pressure precludes adjusting cardiac meds. Still awaiting placement from case management. Plan discussed in detail with the nursing staff 12/22. Continue support supportive care. Tracheostomy and PEG in place. Remains nonresponsive. Awaiting placement. 12/23. Continue support supportive care. Tracheostomy and PEG in place. Remains nonresponsive. Awaiting placement. Remains tachycardic. Decrease dose of lasix. Will try low dose metoprolol. Monitor BP closely 12/24. Continue support supportive care. Tracheostomy and PEG in place. Remains nonresponsive. Awaiting placement. Heart rate slightly better. Continue to monitor BP closely 12/25. Continue support supportive care. Tracheostomy and PEG in place. Remains nonresponsive. Awaiting placement. 12/26. Continue support supportive care. Tracheostomy and PEG in place. Remains nonresponsive. Awaiting placement 12/27. Continue support supportive care. Tracheostomy and PEG in place. Remains nonresponsive. Awaiting placement 12/28. Had fever yesterday. Blood culture drawn. UA - UTI - started on antibiotics. Now tracheal aspirate is growing GN rods. 12/29: Continue IV antibiotics, continue supportive care. Since admission patient has shown minimal or no chance of neurological recovery. Need 24/7 assistance. Currently on trach and PEG, nonverbal. Waiting on SNF placement. Discussed with telephonic nurse case manager today. 12/30: Continue IV antibiotics for UTI, continue supportive care. Pending placement 12/31: continue supportive care. continue supportive care. Pending placement 01/01: continue supportive care. Pending placement. cont Iv abx for UTI till 01/04 01/02: Continue supportive care, pending placement. Sodium level slightly elevated, will start hypotonic fluid. Continue antibiotics till 01/04 01/03; cont hypotonic fluid, increase free water with TF for hypernatremia, follow BMP. cont supportive care. pending placement. cont cefepime. recx blood 01/04: resolved hyponatremia, cont supportive care, pending placement. Last day of supplement today. 01/05: Continue supportive care, pending placement. Monitor H&H and fever curve off antibiotic. 01/06; monitor off abx, suction as needed, Continue supportive care, pending placement. 01/07: Discharge pending on placement, vitals stable. Continue supportive care 01/08: Discharge pending on placement, vitals stable. Continue supportive care. stop lasix, increase metoprolol to 25mg BID for ST. 01/09 patient resting with eyes closed. Opens eyes to tactile stimulus, has a blink reflex, does not follow simple commands, has a T-collar / G-tube Lab results reviewed, low-grade fever, 01/10 Eyes open, does not follow simple commands, no acute events overnight 01/11 no acute events overnight, Waiting for placement 01/12 No acute events overnight. Patient awaiting for placement 01/13. No new issues. Awaiting placement 01/14. No new issues. Awaiting placement. 01/15. No new issues. Awaiting placement. 01/16. No new issues. Patient remain stable. Awaiting placement. Check maintenance labs. 01/17. Routine maintenance labs were ordered and are still pending. Await placement. 01/18. Patient with low-grade fever past 24-48 hrs. WBC within normal limits. Check chest x-ray, urinalysis and consider blood cultures. Continue tracheostomy care, secretion control and airway management. Patient currently with PEG and tube feedings at 60 cc an hour. Nutritional support and aspiration precautions. 01/19. Temperature 100.7 overnight. Continue to monitor closely. Continue tracheostomy care, secretion control and airway management. Patient currently with PEG and tube feedings at 60 cc an hour. Nutritional support and aspiration precautions. 01/20. Continue to monitor closely. Continue tracheostomy care, secretion control and airway management. Patient currently with PEG and tube feedings at 60 cc an hour. Nutritional support and aspiration precautions. 01/21. Afebrile overnight. Continue to monitor closely. Continue tracheostomy care, secretion control and airway management. Patient currently with PEG and tube feedings at 60 cc an hour. Nutritional support and aspiration precautions. 01/22. Continue to monitor closely. Continue tracheostomy care, secretion control and airway management. Patient currently with PEG and tube feedings at 60 cc an hour. Nutritional support and aspiration precautions. 01/23. Continue tracheostomy care, secretion control and airway management. Patient currently with PEG and tube feedings at 60 cc an hour. Nutritional support and aspiration precautions. Will get routine labs tomorrow. 01/24. Labs reviewed. No abnormalities. Continue tracheostomy care, secretion control and airway management. Patient currently with PEG and tube feedings at 60 cc an hour. Nutritional support and aspiration precautions. 01/25. Temp 100.6. More sleepy today. Will get chest xray, blood culture, urinalysis, sputum cultures. Will start on empirical abx. 01/26: Vitals noted, slightly tachycardic. Follow culture work-up, continue supportive care. 01/27: Spiking low-grade temp, negative UA, sputum culture and recent blood cultures also negative. Continue to monitor off antibiotics. Continue supportive care. Pending placement. 01/28: cont to spike low grade temp, negative UA, sputum culture and recent blood cultures also negative. Continue to monitor off antibiotics. will order fpr sinus xry. Continue supportive care. Pending placement. 01/29: Continue to follow clinically, intermittently spiking low-grade temp, all recent culture work is negative, negative UA, normal respiratory jaylan 1 tracheal aspirate. Vitals noted and currently stable. Pending placement 01/30: Clinically unchanged, continue to monitor vitals, continue supportive cares. Pending placement. Discussed plan of care with RN at the bedside. 01/31 - TODATE: cont supportive care, pending placement. monitor vitals carefully. Discussed with family at the bedside. 02/06. Patient afebrile today. Continue trach care. Secretions stable today. Culture data negative so far. Awaiting placement. 02/07. Awaiting placement awaiting family member to evaluate papers. Continue trach care secretions stable. Pending placement 02/09: Intermittent fever, ?drug related, will check cxr and also labs. No new complaints. 02/10: Patient's trach dislodged today. Nevertheless respiratory status is intact attempt to reinsert was unsuccessful will monitor discussed with nursing staff to pay close attention to the patient. Considering that this was not a planned decannulation I will start the patient on continuous pulse ox until full evaluation was done by pulmonary. History Interval history: Patient seen and examined, Trach dislodged per staff. No respiratory complications Hospitalist Physical - Physical exam Narrative exam: General appearance: Present: no acute distress, well-nourished, other (Chronically ill) dressing over stoma - Respiratory Respiratory: bilateral: CTA Extremities: abnormal Extremity abnormal: other (Contractures generalized weakness trace edema) CHEST: Rales posteriorly - Musculoskeletal Musculoskeletal: generalized weakness - Neurologic Neurologic: other - Psychiatric Psychiatric: other (Focal deficits) - Constitutional Vitals: Temp Pulse Resp BP Pulse Ox 99.7 F H 106 H 18 103/73 98 02/10/21 07:11 02/10/21 09:22 02/10/21 07:11 02/10/21 09:22 02/10/21 10:00 General appearance: Present: no acute distress, well-nourished, other (Chronically ill) HEART Score - HEART Score Age: < 45 Risk factors: 1-2 risk factors - Critical Actions Critical Actions: >7 pts:50-65% risk of adverse cardiac event. 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 02/09/21 10:59 Eos % (Auto) 1.6 % (0.0-4.3) 01/29/21 05:47 Baso % (Auto) 0.4 % (0.0-1.8) 01/29/21 05:47 Lymph # (Auto) 2.1 K/mm3 (1.2-5.4) 01/29/21 05:47 [place] # (Auto) 0.8 K/mm3 (0.0-0.8) 01/29/21 05:47 Eos # (Auto) 0.1 K/mm3 (0.0-0.4) 01/29/21 05:47 Baso # (Auto) 0.0 K/mm3 (0.0-0.1) 01/29/21 05:47 Add Manual Diff Complete 02/09/21 10:59 Total Counted 100 02/09/21 10:59 Seg Neutrophils % 61.0 % (40.0-70.0) 01/29/21 05:47 Seg Neuts % (Manual) 58.0 % (40.0-70.0) 02/09/21 10:59 Band Neutrophils % 2.0 % 10/15/20 05:50 Lymphocytes % (Manual) 29.0 % (13.4-35.0) 02/09/21 10:59 Reactive Lymphs % (Man) 1.0 % 10/02/20 12:18 Monocytes % (Manual) 13.0 % (0.0-7.3) H 02/09/21 10:59 Eosinophils % (Manual) 1.0 % (0.0-4.3) 10/29/20 07:56 Myelocytes % 2.0 % 10/02/20 13:05 Metamyelocytes % 1.0 % 10/14/20 04:00 Nucleated RBC % Not Reportable 02/09/21 10:59 Seg Neutrophils # 4.7 K/mm3 (1.8-7.7) 01/29/21 05:47 Seg Neutrophils # Man 3.7 K/mm3 (1.8-7.7) 02/09/21 10:59 Band Neutrophils # 0.0 K/mm3 02/09/21 10:59 Lymphocytes # (Manual) 1.8 K/mm3 (1.2-5.4) 02/09/21 10:59 Abs React Lymphs (Man) 0.0 K/mm3 02/09/21 10:59 Monocytes # (Manual) 0.8 K/mm3 (0.0-0.8) 02/09/21 10:59 Eosinophils # (Manual) 0.0 K/mm3 (0.0-0.4) 02/09/21 10:59 Basophils # (Manual) 0.0 K/mm3 (0.0-0.1) 02/09/21 10:59 Metamyelocytes # 0.0 K/mm3 02/09/21 10:59 Myelocytes # 0.0 K/mm3 02/09/21 10:59 Promyelocytes # 0.0 K/mm3 02/09/21 10:59 Blast Cells # 0.0 K/mm3 02/09/21 10:59 WBC Morphology Not Reportable 02/09/21 10:59 Hypersegmented Neuts Not Reportable 02/09/21 10:59 Hyposegmented Neuts Not Reportable 02/09/21 10:59 Hypogranular Neuts Not Reportable 02/09/21 10:59 Smudge Cells Not Reportable 02/09/21 10:59 Toxic Granulation Not Reportable 02/09/21 10:59 Toxic Vacuolation Not Reportable 02/09/21 10:59 Dohle Bodies Not Reportable 02/09/21 10:59 Pelger-Huet Anomaly Not Reportable 02/09/21 10:59 Ester Rods Not Reportable 02/09/21 10:59 Platelet Estimate Consistent w auto 02/09/21 10:59 Clumped Platelets Not Reportable 02/09/21 10:59 Plt Clumps, EDTA Not Reportable 02/09/21 10:59 Large Platelets Few 02/09/21 10:59 Giant Platelets Not Reportable 02/09/21 10:59 Platelet Satelliting Not Reportable 02/09/21 10:59 Plt Morphology Comment Not Reportable 02/09/21 10:59 RBC Morphology Not Reportable 02/09/21 10:59 Dimorphic RBCs Not Reportable 02/09/21 10:59 Polychromasia Not Reportable 02/09/21 10:59 Hypochromasia 1+ 02/09/21 10:59 Poikilocytosis Not Reportable 02/09/21 10:59 Anisocytosis Not Reportable 02/09/21 10:59 Microcytosis Not Reportable 02/09/21 10:59 Macrocytosis Not Reportable 02/09/21 10:59 Spherocytes Not Reportable 02/09/21 10:59 Pappenheimer Bodies Not Reportable 02/09/21 10:59 Sickle Cells Not Reportable 02/09/21 10:59 Target Cells Not Reportable 02/09/21 10:59 Tear Drop Cells Not Reportable 02/09/21 10:59 Ovalocytes Not Reportable 02/09/21 10:59 Stomatocytes Few 10/14/20 04:00 Helmet Cells Not Reportable 02/09/21 10:59 Burk-Gomer Bodies Not Reportable 02/09/21 10:59 [place] Rings Not Reportable 02/09/21 10:59 Rulo Cells Not Reportable 02/09/21 10:59 Bite Cells Not Reportable 02/09/21 10:59 Crenated Cell Not Reportable 02/09/21 10:59 Elliptocytes Not Reportable 02/09/21 10:59 Acanthocytes (Spur) Not Reportable 02/09/21 10:59 Rouleaux Not Reportable 02/09/21 10:59 Hemoglobin C Crystals Not Reportable 02/09/21 10:59 Schistocytes Not Reportable 02/09/21 10:59 Malaria parasites Not Reportable 02/09/21 10:59 Sickle Cell Solubility See scanned result 10/04/20 Unknown Hemoglobin A See scanned result 10/04/20 Unknown Hemoglobin A2 See scanned result 10/04/20 Unknown Hemoglobin A2 Prime See scanned result 10/04/20 Unknown Hemoglobin C See scanned result 10/04/20 Unknown Hemoglobin D See scanned result 10/04/20 Unknown Hemoglobin E See scanned result 10/04/20 Unknown Hgb F Diffential Stain See scanned result 10/04/20 Unknown Hemoglobin F Quant See scanned result 10/04/20 Unknown Hemoglobin G See scanned result 10/04/20 Unknown Hemoglobin S See scanned result 10/04/20 Unknown Hemoglobin [place] See scanned result 10/04/20 Unknown Hemoglobin [place] See scanned result 10/04/20 Unknown Hemoglobin Analilia See scanned result 10/04/20 Unknown Variant Hemoglobin See scanned result 10/04/20 Unknown Abnorm Hgb IEF Confirm See scanned result 10/04/20 Unknown Hemoglobin Interpret See scanned result 10/04/20 Unknown Hemoglobinopathy Note See scanned result 10/04/20 Unknown Sharad Bodies Not Reportable 02/09/21 10:59 Hem Pathologist Commnt No 02/09/21 10:59 PT 13.6 Sec. (12.2-14.9) 10/21/20 13:54 INR 1.06 (0.87-1.13) 10/21/20 13:54 APTT 31.6 Sec. (24.2-36.6) 10/03/20 00:40 Fibrinogen 336 mg/dl (211-480) 10/04/20 10:00 D-Dimer 1974.47 ng/mlDDU (0-234) H 11/11/20 13:50 ABG pH 7.459 pH Units (7.350-7.450) H 10/26/20 10:30 POC ABG pCO2 20.7 mmHg (32.0-48.0) L 10/13/20 07:18 ABG pCO2 32.4 mm Hg 10/26/20 10:30 POC ABG pO2 137.9 mmHg (83-108) H 10/13/20 07:18 ABG pO2 112.2 mm Hg (80.0-90.0) H 10/26/20 10:30 POC ABG HCO3 14.8 10/13/20 07:18 ABG HCO3 22.5 mmol/L (20.0-26.0) 10/26/20 10:30 ABG O2 Saturation 98.2 % (95.0-99.0) 10/26/20 10:30 ABG O2 Content 18.5 (0.0-44) 10/26/20 10:30 POC ABG Base Excess -6.9 10/13/20 07:18 ABG Base Excess -0.6 mmol/L (-2.0-3.0) 10/26/20 10:30 ABG Hemoglobin 13.5 gm/dl (12.0-16.0) 10/26/20 10:30 ABG Oxyhemoglobin 98.3 (94-98) H 10/13/20 07:18 ABG Carboxyhemoglobin 1.3 % (0.0-5.0) 10/26/20 10:30 ABG Methemoglobin 0.5 % (0.0-1.5) 10/26/20 10:30 ABG Sodium 135.9 mmol/L (136.0-145.0) L 10/13/20 07:18 ABG Potassium 3.7 mmol/L (3.40-4.50) 10/13/20 07:18 ABG Chloride 111.0 mmol/L (98-107) H 10/13/20 07:18 ABG Glucose 109 mg/dL (65-95) H 10/13/20 07:18 VBG pH 6.949 (7.320-7.420) L* 10/02/20 Unknown Oxyhemoglobin 96.5 % (95.0-99.0) 10/26/20 10:30 Carboxyhemoglobin 0.3 (0.5-1.5) L 10/13/20 07:18 FiO2 25 % 10/26/20 10:30 Sodium 133 mmol/L (137-145) L 02/09/21 10:59 Potassium 5.0 mmol/L (3.6-5.0) 02/09/21 10:59 Chloride 96.9 mmol/L (98-107) L 02/09/21 10:59 Carbon Dioxide 20 mmol/L (22-30) L 02/09/21 10:59 Anion Gap 21 mmol/L 02/09/21 10:59 BUN 13 mg/dL (7-17) 02/09/21 10:59 Creatinine 0.5 mg/dL (0.6-1.2) L 02/09/21 10:59 Estimated GFR > 60 ml/min 02/09/21 10:59 BUN/Creatinine Ratio 26 % 02/09/21 10:59 Glucose 104 mg/dL (65-100) H 02/09/21 10:59 POC Glucose 145 mg/dL (70-105) H 02/09/21 23:25 Random Insulin 43.2 uIU/mL (<=19.6) H 11/02/20 19:19 Proinsulin See scanned result 11/02/20 19:19 C-Peptide 6.23 ng/mL (0.80-3.85) H 11/02/20 19:19 Lactic Acid 1.90 mmol/L (0.7-2.0) 10/04/20 22:00 Uric Acid 7.5 mg/dL (3.5-7.6) 10/02/20 13:05 Calcium 9.5 mg/dL (8.4-10.2) 02/09/21 10:59 Ionized Calcium 4.4 mg/dL (4.8-5.6) L 10/07/20 21:00 Phosphorus 4.60 mg/dL (2.5-4.5) H 11/13/20 10:05 Magnesium 2.10 mg/dL (1.7-2.3) 11/13/20 10:05 Total Bilirubin 0.30 mg/dL (0.1-1.2) 01/24/21 04:18 AST 31 units/L (5-40) 01/24/21 04:18 ALT 21 units/L (7-56) 01/24/21 04:18 Alkaline Phosphatase 92 units/L (35-129) 01/24/21 04:18 Lactate Dehydrogenase 769 units/L (91-180) H 10/02/20 13:05 C-Reactive Protein 0.70 mg/dL (0.00-1.30) 11/11/20 13:50 NT-Pro-B Natriuret Pep 2788 pg/mL (0-450) H 10/04/20 10:00 Total Protein 7.7 g/dL (6.3-8.2) 01/24/21 04:18 Albumin 3.7 g/dL (3.9-5) L 01/24/21 04:18 Albumin/Globulin Ratio 0.9 % 01/24/21 04:18 Procalcitonin < 0.05 ng/mL (<0.15) 12/27/20 20:16 Arterial Blood Glucose 109 mg/dL (65-95) H 10/13/20 07:18 Arterial Blood Ionized Calcium 4.6 mg/dL (4.6-5.3) 10/13/20 07:18 Urine Color Yellow (Yellow) 01/25/21 09:51 Urine Turbidity Cloudy (Clear) 01/25/21 09:51 Urine pH 7.0 (5.0-7.0) 01/25/21 09:51 Ur Specific [place] 1.011 (1.003-1.030) 01/25/21 09:51 Urine Protein <15 mg/dl mg/dL (Negative) 01/25/21 09:51 Urine Glucose (UA) Neg mg/dL (Negative) 01/25/21 09:51 Urine Ketones Neg mg/dL (Negative) 01/25/21 09:51 Urine Blood Neg (Negative) 01/25/21 09:51 Urine Nitrite Neg (Negative) 01/25/21 09:51 Urine Bilirubin Neg (Negative) 01/25/21 09:51 Urine Urobilinogen < 2.0 mg/dL (<2.0) 01/25/21 09:51 Ur Leukocyte Esterase Neg (Negative) 01/25/21 09:51 Urine WBC (Auto) 6.0 /HPF (0.0-6.0) 01/25/21 09:51 Urine RBC (Auto) 3.0 /HPF (0.0-6.0) 01/25/21 09:51 U Epithel Cells (Auto) < 1.0 /HPF (0-13.0) 01/25/21 09:51 Urine Bacteria (Auto) 1+ /HPF (Negative) 01/18/21 08:47 Urine WBC Clumps 3+ /HPF 11/11/20 13:50 Calcium Oxalate Crystal Few 11/11/20 13:50 Urine Mucus Few /HPF 01/25/21 09:51 Urine Yeast (Budding) 2+ /HPF 01/25/21 09:51 Vancomycin Trough 12.6 ug/mL (5.0-20.0) 10/21/20 13:54 Random Vancomycin 10.7 ug/mL (0-40.0) 10/16/20 13:09 Phenytoin 5.7 ug/mL (10.0-20.0) L 10/13/20 07:00 C. difficile Tox (PCR) Positive (Negative) 10/16/20 10:22 Coronavirus (PCR) Negative (Negative) 10/08/20 14:15 Blood Type O POSITIVE 10/02/20 12:50 Antibody Screen Negative 10/02/20 12:50 Crossmatch See Detail 10/02/20 12:50 - Diagnostic Impressions Diagnostic Impressions: Echocardiogram 10/03/20 13:42 Transthoracic Echocardiogram Indication: S/P Cardiac Arrest R/O Cardiomyopathy BP: 133/71 Conclusions *Global left ventricular systolic function is normal. *The estimated ejection fraction is 60-65%. *There is trace of mitral regurgitation. *The right 0heart chambers are both slightly dilated. *There is mild tricuspid regurgitation. *There is mild-moderate pulmonary hypertension. *The right ventricular systolic pressure is calculated at 44 mmHg. *The study quality is technically difficult. Findings Procedure Info: The study quality is technically difficult. The study is technically limited due to patient body habitus. The study was technically limited due to the patient's inability to lay in the left lateral decubitus position. Left Ventricle: The left ventricular chamber size is normal. There is no left ventricular hypertrophy. Global left ventricular systolic function is normal. The estimated ejection fraction is 60-65%. Left Atrium: The left atrial chamber size is normal. Right Ventricle: The right ventricle is slightly dilated. Right Atrium: The right atrium is mildly dilated. Aortic Valve: The aortic valve leaflets are mildly thickened. There is no evidence of aortic regurgitation. There is no evidence of aortic stenosis. Mitral Valve: The mitral valve leaflets are mildly thickened. There is trace of mitral regurgitation. There is no evidence of mitral stenosis. Tricuspid Valve: There is mild tricuspid regurgitation. The right ventricular systolic pressure is calculated at 44 mmHg. There is evidence of mild pulmonary hypertension. Pulmonic Valve: There is trace pulmonic regurgitation. Pericardium: There is no pericardial effusion. Aorta: There is no dilatation of the ascending aorta. There is no dilatation of the aortic root. Venous: The inferior vena cava is dilated. Measurements Chambers 2D Name Value Normal Range IVSd (2D) 1 cm (0.6 - 1.1) LVPWd (2D) 1.01 cm (0.6 - 1.1) LVIDd (2D) 4.58 cm (3.7 - 5.6) LVIDs (2D) 3.17 cm (2 - 3.8) LV FS (2D) 30.93 % - EF Teichholz (2D) 58.66 % - Ao root diameter (2D) 2.94 cm (2 - 3.7) Volumes/Mass Name Value Normal Range LA ESV SP 4CH (A/L) 72.82 ml - LA ESV SP 2CH (A/L) 66.86 ml - LA ESV BP (A/L) 74.49 ml - LA ESV SP 4CH (MOD) 71.03 ml - LA ESV SP 2CH (MOD) 64.3 ml - LV EDV SP 4CH (MOD) 98.82 ml - LV ESV SP 4CH (MOD) 24.8 ml - EF SP 4CH (MOD) 74.9 % - LV EDV SP 2CH (MOD) 86.1 ml - LV ESV SP 2CH (MOD) 36.93 ml - EF SP 2CH (MOD) 57.11 % - LV EDV BP 94.4 ml - LV ESV BP 32.66 ml - BP EF (MOD) 65.4 % - Diastolic/Systolic Function Name Value Normal Range MV E-wave Vmax 1.04 m/sec - MV deceleration time 160.46 msec - MV A-wave Vmax 0.92 m/sec - MV E:A ratio 1.14 ratio - Aortic Valve Name Value Normal Range AV Vmax 2.12 m/sec - AV VTI 22.37 cm - AV peak gradient 17.95 mmHg - AV mean gradient 7.29 mmHg - LVOT diameter 2.01 cm - LVOT Vmax 1.8 m/sec - LVOT VTI 27.17 cm - LVOT peak gradient 12.91 mmHg - LVOT mean gradient 6.83 mmHg - SV LVOT 86.42 ml - ANITA (continuity Vmax) 2.7 cm2 - ANITA (continuity VTI) 3.86 cm2 - Ascending Ao 3.18 cm - Tricuspid Valve Name Value Normal Range TV E-wave Vmax 0.88 m/sec - TR Vmax 3.01 m/sec - TR peak gradient 36.27 mmHg - RAP 8 mmHg - RVSP 44 mmHg - IVC diameter 2.65 cm (1.2 - 2.3) Pulmonic Valve/Qp:Qs Name Value Normal Range PV Vmax 1.22 m/sec - PV peak gradient 5.91 mmHg - RVOT Vmax 0.87 m/sec - RVOT VTI 13.32 cm - RVOT peak gradient 3 mmHg - PV acceleration time 110.37 msec - [place]/IV: Voiding Method Incontinent IV Catheter Type [Right Foot] INT / Saline Lock IV Catheter Type [Left Forearm Peripheral IV ] IV Catheter Type [Left Wrist] INT / Saline Lock IV Catheter Type [Right Hand] INT / Saline Lock IV Catheter Type [Right INT / Saline Lock Antecubital] IV Catheter Type [Right Upper Mid-line arm] IV Catheter Type [Left Triple Lumen Cath Internal Jugular] IV Catheter Type [Left Hand] Peripheral IV IV Catheter Type [Left Peripheral IV Antecubital] Active Medications - Current Medications Current Medications: Generic Name Dose Route Start Last Admin Trade Name Freq PRN Reason Stop Dose Admin Acetaminophen 650 mg 10/05/20 16:34 02/09/21 22:20 Acetaminophen 325 Mg/10.15 Ml Oral Liqd Unit Dose FEEDTUBE 650 mg Q6H PRN Administration Non Cardiac Pain or Temp>100.5 Albuterol 2.5 mg 11/05/20 13:03 11/06/20 13:04 Albuterol 2.5 Mg/3 Ml Nebu IH 2.5 mg Q4HRT PRN Administration Shortness Of Breath Alprazolam 0.25 mg 01/20/21 13:33 02/02/21 18:06 Alprazolam 0.25 Mg Tab PO 0.25 mg Q8H PRN Administration Anxiety Lipase/Protease/Amylase 1 each 10/05/20 11:09 Lipase 10,500/Protease 25,000/Amylase 43,750 (Units) Dr Barakat FEEDTUBE PRN PRN For Clogged Feeding Tube Enoxaparin Sodium 40 mg 10/22/20 10:00 02/10/21 09:22 Enoxaparin 40 Mg/0.4 Ml Inj SUB-Q 40 mg DAILY ERINN Administration Protocol Famotidine 20 mg 10/07/20 10:00 02/10/21 09:22 Famotidine 20 Mg Tab PO 20 mg BID ERINN Administration Hydralazine HCl 20 mg 10/07/20 11:49 10/17/20 07:20 Hydralazine 20 Mg/1 Ml Inj IV 20 mg Q6H PRN Administration SBP >170 Hydrophilic Ointment 1 applic 01/03/21 13:00 Lip Therapy Vaseline TP DIRECT PRN Dry Lips Dextrose 1,000 mls @ 30 mls/hr 01/03/21 12:00 02/09/21 03:16 D5w IV 30 mls/hr DIRECT ERINN Administration Levofloxacin/Dextrose 500 mg in 100 mls @ 100 mls/hr 02/08/21 14:00 02/10/21 13:18 Levaquin 500mg/100ml IV 100 mls/hr Q24H ERINN Administration Protocol Metoprolol Tartrate 50 mg 02/02/21 16:01 02/10/21 09:22 Metoprolol Tartrate 25 Mg Tab PO 50 mg BID ERINN Administration Morphine Sulfate 2 mg 01/20/21 13:33 Morphine 2 Mg/1 Ml Inj IV Q4H PRN Pain, Moderate (4-6) Ondansetron HCl 4 mg 02/10/21 11:38 02/10/21 13:18 Ondansetron 4 Mg/2 Ml Inj IV 4 mg Q4H PRN Administration Nausea And Vomiting Simple Syrup 15 ml 10/05/20 11:09 Simple Syrup 15 Ml FEEDTUBE PRN PRN Hypoglycemia Simple Syrup 30 ml 10/05/20 11:09 Simple Syrup 15 Ml FEEDTUBE PRN PRN Hypoglycemia Sodium Bicarbonate 325 mg 10/05/20 11:09 12/16/20 08:19 Sodium Bicarbonate 325 Mg Tab FEEDTUBE 325 mg PRN PRN Administration For Clogged Feeding Tube Nutrition/Malnutrition Assess - Dietary Evaluation Nutrition/Malnutrition Findings: Nutrition Notes Start: 10/04/20 11:13 Freq: Status: Active Protocol: Document 02/10/21 10:11 (Rec: 02/10/21 10:15 [id number]) Nutrition Notes Initial or Follow up Reassessment Current Diagnosis Respiratory Failure Other Pertinent Diagnosis s/p cardiac arrest x 2, anoxic brain injury Current Diet Promote at 65ml/hr Labs/Tests 02/09: Na 133 Pertinent Medications Reviewed Height 5 ft 8 in Weight 97 kg [place] Body Weight (kg) 63.63 BMI 32.5 Weight Status Obese Subjective/Other Information FU for stable TF. Pt tolerating at goal rate. Percent of energy/protein needs met: 100%/98% Burn Absent Trauma Absent GI Symptoms None Difficulty In Swallowing,Chewing Food Allergy Yes Current % PO Negligible Minimum of two criteria Yes Interpretation of Weight Loss (severe) >2% in 1 week Fluid Accumulation Mild (non-severe) #2 Nutrition Diagnosis Malnutrition Diagnosis Progress(for reassessment Continues documentation) #1 Nutrition Diagnosis Inadequate oral intake Diagnosis Progress(for reassessment Continues documentation) Is patient on ventilator? No Is Patient Ambulatory and/or Out of Bed No REE-([facility]-confined to bed) 2076.108 Kcal/Kg value to use for calculation 16 Approximate Energy Requirements Using 1552 kcal/Kg Calculation Used for Recommendations Venkata Richard Additional Notes Pro needs 1.25-1.5 g/kg adjBW: 100-120g/day Fluid needs 1ml/kcal Nutrition Intervention Change Diet Order: Continue Nutrition Support: Promote at 65 ml/hr Flush 50 ml q4h Kcal 1,560 Protein (gm) 98 Fluid (mL) 1,309 Goal #1 TF tolerance Goal #2 TF to meet at least 75% energy and pro needs Anticipated Discharge Needs: Promote at 65 ml/hr Flush 50 ml q4h Follow-Up By: 02/17/21 Additional Comments FU for stable TF
--- NOTE | 2021-02-10 15:23 | XRay Report ---
CHEST 1 VIEW INDICATION: FEVER. COMPARISON: 01/25/2021 FINDINGS: Support devices: None. Heart: Within normal limits. Lungs/Pleura: No acute air space or interstitial disease. Additional findings: None. IMPRESSION: No acute findings. Signer Name: Adam Jordan Jr, MD Signed: 02/10/2021 3:19 PM Workstation Name: [id number]
--- NOTE | 2021-02-10 23:19 | History and Physical Report ---
History of Present Illness Date of admission: 10/02/20 12:00 Chief complaint: Event noted. Trach was dislodged. Replacement attempted. Pt trach unable to be replaced. Now on ra sat greater than 96% Past History Past Medical History: GERD, hypertension, seizures, other (Asthma) Past Surgical History: Social history: , full code Family history: hypertension Medications and Allergies Allergies Allergy/AdvReac Type Severity Reaction Status Date / Time egg Allergy Severe Anaphylaxis Verified 05/22/20 16:09 NSAIDS (Non-Steroidal Allergy Severe Unknown Verified 05/22/20 16:09 Anti-Inflamma Sulfa (Sulfonamide Allergy Severe Anaphylaxis Verified 05/22/20 16:09 Antibiotics) ibuprofen Allergy Intermediate Bleeding Verified 05/22/20 16:09 latex Allergy Hives Verified 05/22/20 16:09 plecanatide [From Trulance] Allergy Anaphylaxis Verified 05/22/20 16:09 adhesive tape AdvReac Intermediate Unknown Verified 05/22/20 16:09 metoclopramide [From Reglan] AdvReac Unknown Verified 05/22/20 16:09 Home Medications Medication Instructions Recorded Confirmed Last Taken Type Pantoprazole [Protonix TAB] 20 mg PO DAILY 05/10/19 10/26/20 05/10/19 05:00 History busPIRone 15 mg PO DAILY 01/15/20 10/26/20 Unknown History Albuterol Sulfate [Proventil Hfa] 6.7 gm IH Q4HR PRN #1 [email or web address] 04/07/20 10/26/20 Unknown Rx Topiramate (Nf) [Trokendi XR CAP] 100 mg PO DAILY 08/20/20 10/26/20 Unknown History oxyCODONE /ACETAMINOPHEN [Percocet 1 tab PO Q6HR 08/20/20 10/26/20 Unknown History 5/325 mg] Escitalopram [Lexapro] 10 mg PO DAILY 10/26/20 10/26/20 Unknown History Pantoprazole [Protonix TAB] 20 mg QDAY 10/26/20 10/26/20 Unknown History hydrOXYzine PAMOATE [Vistaril] 25 mg PO Q6HR PRN 10/26/20 10/26/20 Unknown History Active Meds: Active Medications Acetaminophen (Acetaminophen 325 Mg/10.15 Ml Oral Liqd Unit Dose) 650 mg FEEDT UBE Q6H PRN PRN Reason: Non Cardiac Pain or Temp>100.5 Last Admin: 02/09/21 22:20 Dose: 650 mg Documented by: Albuterol (Albuterol 2.5 Mg/3 Ml Nebu) 2.5 mg IH Q4HRT PRN PRN Reason: Shortness Of Breath Last Admin: 11/06/20 13:04 Dose: 2.5 mg Documented by: Alprazolam (Alprazolam 0.25 Mg Tab) 0.25 mg PO Q8H PRN PRN Reason: Anxiety Last Admin: 02/02/21 18:06 Dose: 0.25 mg Documented by: Lipase/Protease/Amylase (Lipase 10,500/Protease 25,000/Amylase 43,750 (Units) Dr Barakat) 1 each FEEDTUBE PRN PRN PRN Reason: For Clogged Feeding Tube Enoxaparin Sodium (Enoxaparin 40 Mg/0.4 Ml Inj) 40 mg SUB-Q DAILY ERINN; Protocol Last Admin: 02/10/21 09:22 Dose: 40 mg Documented by: Famotidine (Famotidine 20 Mg Tab) 20 mg PO BID [facility] Last Admin: 02/10/21 22:44 Dose: 20 mg Documented by: Hydralazine HCl (Hydralazine 20 Mg/1 Ml Inj) 20 mg IV Q6H PRN PRN Reason: SBP >170 Last Admin: 10/17/20 07:20 Dose: 20 mg Documented by: Hydrophilic Ointment (Lip Therapy Vaseline) 1 applic TP DIRECT PRN PRN Reason: Dry Lips Dextrose (D5w) 1,000 mls @ 30 mls/hr IV DIRECT ERINN Last Admin: 02/09/21 03:16 Dose: 30 mls/hr Documented by: Levofloxacin/Dextrose (Levaquin 500mg/100ml) 500 mg in 100 mls @ 100 mls/hr IV Q24H ERINN; Protocol Last Admin: 02/10/21 13:18 Dose: 100 mls/hr Documented by: Metoprolol Tartrate (Metoprolol Tartrate 25 Mg Tab) 50 mg PO BID ERINN Last Admin: 02/10/21 22:43 Dose: Not Given Documented by: Morphine Sulfate (Morphine 2 Mg/1 Ml Inj) 2 mg IV Q4H PRN PRN Reason: Pain, Moderate (4-6) Ondansetron HCl (Ondansetron 4 Mg/2 Ml Inj) 4 mg IV Q4H PRN PRN Reason: Nausea And Vomiting Last Admin: 02/10/21 13:18 Dose: 4 mg Documented by: Simple Syrup (Simple Syrup 15 Ml) 15 ml FEEDTUBE PRN PRN PRN Reason: Hypoglycemia Simple Syrup (Simple Syrup 15 Ml) 30 ml FEEDTUBE PRN PRN PRN Reason: Hypoglycemia Sodium Bicarbonate (Sodium Bicarbonate 325 Mg Tab) 325 mg FEEDTUBE PRN PRN PRN Reason: For Clogged Feeding Tube Last Admin: 12/16/20 08:19 Dose: 325 mg Documented by: Physical Examination Vital signs: Vital Signs Pulse Pulse Ox 75 98 10/02/20 11:36 10/02/20 11:36 Ascultation: Bilateral: rhonchi Results - Laboratory Findings CBC and BMP: 02/09/21 10:59 02/09/21 10:59 ABG ABG pH 7.459 pH Units (7.350-7.450) H 10/26/20 10:30 POC ABG pCO2 20.7 mmHg (32.0-48.0) L 10/13/20 07:18 ABG pCO2 32.4 mm Hg 10/26/20 10:30 POC ABG pO2 137.9 mmHg (83-108) H 10/13/20 07:18 ABG pO2 112.2 mm Hg (80.0-90.0) H 10/26/20 10:30 POC ABG HCO3 14.8 10/13/20 07:18 ABG O2 Saturation 98.2 % (95.0-99.0) 10/26/20 10:30 PT/INR, D-dimer PT 13.6 Sec. (12.2-14.9) 10/21/20 13:54 INR 1.06 (0.87-1.13) 10/21/20 13:54 D-Dimer 1974.47 ng/mlDDU (0-234) H 11/11/20 13:50 Abnormal lab findings: Abnormal Labs 10/02/20 10/02/20 10/02/20 12:03 12:18 12:18 WBC 14.9 H RBC Hgb 9.1 L Hct MCV MCH 22 L MCHC 28 L RDW 17.6 H Plt Count 102 L Lymph % (Auto) [place] % (Auto) Lymph # (Auto) [place] # (Auto) Baso # (Auto) Seg Neutrophils % Seg Neuts % (Manual) 36.0 L Lymphocytes % (Manual) 49.0 H Monocytes % (Manual) Nucleated RBC % 6.0 H Seg Neutrophils # Seg Neutrophils # Man Lymphocytes # (Manual) 7.3 H Monocytes # (Manual) PT INR APTT Fibrinogen D-Dimer ABG pH POC ABG pCO2 POC ABG pO2 ABG pO2 ABG HCO3 ABG Base Excess ABG Hemoglobin ABG Oxyhemoglobin ABG Sodium ABG Potassium ABG Chloride ABG Glucose VBG pH Oxyhemoglobin Carboxyhemoglobin Sodium 134 L Potassium Chloride Carbon Dioxide 12 L BUN 6 L Creatinine Glucose 390 H POC Glucose 451 H Random Insulin C-Peptide Lactic Acid Calcium Ionized Calcium Phosphorus Magnesium AST 135 H ALT 85 H Alkaline Phosphatase 172 H Lactate Dehydrogenase 641 H NT-Pro-B Natriuret Pep Total Protein 5.4 L Albumin 2.3 L Arterial Blood Glucose Arterial Blood Ionized Calcium Urine pH Urine WBC (Auto) U Epithel Cells (Auto) Vancomycin Trough Phenytoin Crossmatch 10/02/20 10/02/20 10/02/20 12:50 13:05 13:05 WBC 38.6 H RBC Hgb 8.9 L Hct 29.0 L MCV 73 L MCH 22 L MCHC RDW 17.2 H Plt Count Lymph % (Auto) [place] % (Auto) Lymph # (Auto) [place] # (Auto) Baso # (Auto) Seg Neutrophils % Seg Neuts % (Manual) Lymphocytes % (Manual) Monocytes % (Manual) Nucleated RBC % 2.0 H Seg Neutrophils # Seg Neutrophils # Man 20.1 H Lymphocytes # (Manual) 10.4 H Monocytes # (Manual) 2.3 H PT INR APTT Fibrinogen D-Dimer ABG pH POC ABG pCO2 POC ABG pO2 ABG pO2 ABG HCO3 ABG Base Excess ABG Hemoglobin ABG Oxyhemoglobin ABG Sodium ABG Potassium ABG Chloride ABG Glucose VBG pH Oxyhemoglobin Carboxyhemoglobin Sodium Potassium Chloride Carbon Dioxide BUN Creatinine Glucose POC Glucose Random Insulin C-Peptide Lactic Acid Calcium Ionized Calcium Phosphorus Magnesium AST 184 H ALT 113 H Alkaline Phosphatase Lactate Dehydrogenase 769 H NT-Pro-B Natriuret Pep Total Protein Albumin Arterial Blood Glucose Arterial Blood Ionized Calcium Urine pH Urine WBC (Auto) U Epithel Cells (Auto) Vancomycin Trough Phenytoin Crossmatch See Detail 10/02/20 10/02/20 10/02/20 16:25 16:35 16:35 WBC RBC Hgb Hct MCV MCH MCHC RDW Plt Count Lymph % (Auto) [place] % (Auto) Lymph # (Auto) [place] # (Auto) Baso # (Auto) Seg Neutrophils % Seg Neuts % (Manual) Lymphocytes % (Manual) Monocytes % (Manual) Nucleated RBC % Seg Neutrophils # Seg Neutrophils # Man Lymphocytes # (Manual) Monocytes # (Manual) PT INR APTT Fibrinogen D-Dimer ABG pH 7.031 L* POC ABG pCO2 POC ABG pO2 ABG pO2 116.8 H ABG HCO3 12.7 L ABG Base Excess -16.9 L ABG Hemoglobin 7.8 L ABG Oxyhemoglobin ABG Sodium ABG Potassium ABG Chloride ABG Glucose VBG pH Oxyhemoglobin 94.9 L Carboxyhemoglobin Sodium Potassium Chloride Carbon Dioxide BUN Creatinine Glucose 403 H POC Glucose Random Insulin C-Peptide Lactic Acid 11.40 H* Calcium 6.3 L D Ionized Calcium Phosphorus Magnesium AST 70 H ALT Alkaline Phosphatase Lactate Dehydrogenase NT-Pro-B Natriuret Pep Total Protein 1.9 L D Albumin 1.2 L Arterial Blood Glucose Arterial Blood Ionized Calcium Urine pH Urine WBC (Auto) U Epithel Cells (Auto) Vancomycin Trough Phenytoin Crossmatch 10/02/20 10/02/20 10/02/20 18:18 18:18 22:30 WBC 11.5 H RBC 2.06 L Hgb 5.5 L* D Hct 17.3 L* D MCV MCH 27 L MCHC RDW 19.5 H Plt Count 60 L Lymph % (Auto) [place] % (Auto) Lymph # (Auto) [place] # (Auto) Baso # (Auto) Seg Neutrophils % Seg Neuts % (Manual) Lymphocytes % (Manual) 8.0 L Monocytes % (Manual) 8.0 H Nucleated RBC % 8.0 H Seg Neutrophils # Seg Neutrophils # Man Lymphocytes # (Manual) 0.9 L Monocytes # (Manual) 0.9 H PT 37.1 H INR 3.71 H APTT 135.8 H* Fibrinogen D-Dimer ABG pH 7.067 L* POC ABG pCO2 POC ABG pO2 ABG pO2 183.0 H ABG HCO3 14.1 L ABG Base Excess -15.1 L ABG Hemoglobin 7.7 L ABG Oxyhemoglobin ABG Sodium ABG Potassium ABG Chloride ABG Glucose VBG pH Oxyhemoglobin Carboxyhemoglobin Sodium Potassium Chloride Carbon Dioxide BUN Creatinine Glucose POC Glucose Random Insulin C-Peptide Lactic Acid Calcium Ionized Calcium Phosphorus Magnesium AST ALT Alkaline Phosphatase Lactate Dehydrogenase NT-Pro-B Natriuret Pep Total Protein Albumin Arterial Blood Glucose Arterial Blood Ionized Calcium Urine pH Urine WBC (Auto) U Epithel Cells (Auto) Vancomycin Trough Phenytoin Crossmatch 10/02/20 10/02/20 10/03/20 Unknown Unknown 00:01 WBC RBC Hgb Hct MCV MCH MCHC RDW Plt Count Lymph % (Auto) [place] % (Auto) Lymph # (Auto) [place] # (Auto) Baso # (Auto) Seg Neutrophils % Seg Neuts % (Manual) Lymphocytes % (Manual) Monocytes % (Manual) Nucleated RBC % Seg Neutrophils # Seg Neutrophils # Man Lymphocytes # (Manual) Monocytes # (Manual) PT 61.1 H INR 6.92 H* APTT 158.7 H* Fibrinogen < 60 L* D-Dimer > 02297 H ABG pH POC ABG pCO2 POC ABG pO2 ABG pO2 ABG HCO3 ABG Base Excess ABG Hemoglobin ABG Oxyhemoglobin ABG Sodium ABG Potassium ABG Chloride ABG Glucose VBG pH 6.949 L* Oxyhemoglobin Carboxyhemoglobin Sodium Potassium Chloride Carbon Dioxide BUN Creatinine Glucose POC Glucose 196 H Random Insulin C-Peptide Lactic Acid Calcium Ionized Calcium Phosphorus Magnesium AST ALT Alkaline Phosphatase Lactate Dehydrogenase NT-Pro-B Natriuret Pep Total Protein Albumin Arterial Blood Glucose Arterial Blood Ionized Calcium Urine pH Urine WBC (Auto) U Epithel Cells (Auto) Vancomycin Trough Phenytoin Crossmatch 10/03/20 10/03/20 10/03/20 00:40 00:40 00:40 WBC RBC Hgb Hct MCV MCH MCHC RDW Plt Count Lymph % (Auto) [place] % (Auto) Lymph # (Auto) [place] # (Auto) Baso # (Auto) Seg Neutrophils % Seg Neuts % (Manual) Lymphocytes % (Manual) Monocytes % (Manual) Nucleated RBC % Seg Neutrophils # Seg Neutrophils # Man Lymphocytes # (Manual) Monocytes # (Manual) PT 15.1 H INR 1.21 H APTT Fibrinogen D-Dimer ABG pH POC ABG pCO2 POC ABG pO2 ABG pO2 ABG HCO3 ABG Base Excess ABG Hemoglobin ABG Oxyhemoglobin ABG Sodium ABG Potassium ABG Chloride ABG Glucose VBG pH Oxyhemoglobin Carboxyhemoglobin Sodium 136 L Potassium Chloride Carbon Dioxide BUN Creatinine 1.6 H D Glucose 106 H POC Glucose Random Insulin C-Peptide Lactic Acid 5.60 H* Calcium 6.5 L Ionized Calcium Phosphorus Magnesium AST 232 H ALT 104 H Alkaline Phosphatase Lactate Dehydrogenase NT-Pro-B Natriuret Pep Total Protein 3.9 L D Albumin 2.4 L Arterial Blood Glucose Arterial Blood Ionized Calcium Urine pH Urine WBC (Auto) U Epithel Cells (Auto) Vancomycin Trough Phenytoin Crossmatch 10/03/20 10/03/20 10/03/20 02:08 02:08 02:08 WBC 17.6 H RBC 3.27 L Hgb 9.9 L D Hct 29.9 L D MCV MCH MCHC RDW 16.5 H Plt Count 75 L Lymph % (Auto) [place] % (Auto) Lymph # (Auto) [place] # (Auto) Baso # (Auto) Seg Neutrophils % Seg Neuts % (Manual) 76.0 H Lymphocytes % (Manual) Monocytes % (Manual) Nucleated RBC % 8.0 H Seg Neutrophils # Seg Neutrophils # Man 13.4 H Lymphocytes # (Manual) Monocytes # (Manual) PT INR APTT Fibrinogen D-Dimer ABG pH POC ABG pCO2 POC ABG pO2 ABG pO2 ABG HCO3 ABG Base Excess ABG Hemoglobin ABG Oxyhemoglobin ABG Sodium ABG Potassium ABG Chloride ABG Glucose VBG pH Oxyhemoglobin Carboxyhemoglobin Sodium Potassium Chloride Carbon Dioxide 19 L BUN Creatinine 1.4 H Glucose 306 H POC Glucose Random Insulin C-Peptide Lactic Acid 10.50 H* Calcium 6.4 L Ionized Calcium Phosphorus Magnesium AST ALT Alkaline Phosphatase Lactate Dehydrogenase NT-Pro-B Natriuret Pep Total Protein Albumin Arterial Blood Glucose Arterial Blood Ionized Calcium Urine pH Urine WBC (Auto) U Epithel Cells (Auto) Vancomycin Trough Phenytoin Crossmatch 10/03/20 10/03/20 10/03/20 02:42 03:59 05:31 WBC RBC Hgb Hct MCV MCH MCHC RDW Plt Count Lymph % (Auto) [place] % (Auto) Lymph # (Auto) [place] # (Auto) Baso # (Auto) Seg Neutrophils % Seg Neuts % (Manual) Lymphocytes % (Manual) Monocytes % (Manual) Nucleated RBC % Seg Neutrophils # Seg Neutrophils # Man Lymphocytes # (Manual) Monocytes # (Manual) PT INR APTT Fibrinogen D-Dimer ABG pH 7.144 L POC ABG pCO2 54.4 H POC ABG pO2 ABG pO2 ABG HCO3 ABG Base Excess ABG Hemoglobin 10.0 L ABG Oxyhemoglobin ABG Sodium ABG Potassium ABG Chloride 108.0 H ABG Glucose 306 H VBG pH Oxyhemoglobin Carboxyhemoglobin Sodium Potassium Chloride Carbon Dioxide BUN Creatinine Glucose POC Glucose 209 H Random Insulin C-Peptide Lactic Acid 9.20 H* Calcium Ionized Calcium Phosphorus Magnesium AST ALT Alkaline Phosphatase Lactate Dehydrogenase NT-Pro-B Natriuret Pep Total Protein Albumin Arterial Blood Glucose 306 H Arterial Blood Ionized Calcium 3.7 L Urine pH Urine WBC (Auto) U Epithel Cells (Auto) Vancomycin Trough Phenytoin Crossmatch 10/03/20 10/03/20 10/03/20 09:00 09:00 09:00 WBC 27.4 H RBC 2.84 L Hgb 8.5 L Hct 25.1 L MCV MCH MCHC RDW 16.1 H Plt Count 72 L Lymph % (Auto) [place] % (Auto) Lymph # (Auto) [place] # (Auto) Baso # (Auto) Seg Neutrophils % Seg Neuts % (Manual) Lymphocytes % (Manual) 11.0 L Monocytes % (Manual) Nucleated RBC % 3.0 H Seg Neutrophils # Seg Neutrophils # Man 18.4 H Lymphocytes # (Manual) Monocytes # (Manual) 1.9 H PT INR APTT Fibrinogen D-Dimer ABG pH POC ABG pCO2 POC ABG pO2 ABG pO2 ABG HCO3 ABG Base Excess ABG Hemoglobin ABG Oxyhemoglobin ABG Sodium ABG Potassium ABG Chloride ABG Glucose VBG pH Oxyhemoglobin Carboxyhemoglobin Sodium Potassium Chloride Carbon Dioxide BUN Creatinine 1.7 H Glucose 216 H POC Glucose Random Insulin C-Peptide Lactic Acid 9.20 H* Calcium 6.3 L Ionized Calcium Phosphorus Magnesium AST 331 H ALT 171 H Alkaline Phosphatase Lactate Dehydrogenase NT-Pro-B Natriuret Pep Total Protein 3.7 L Albumin 1.9 L Arterial Blood Glucose Arterial Blood Ionized Calcium Urine pH Urine WBC (Auto) U Epithel Cells (Auto) Vancomycin Trough Phenytoin Crossmatch 10/03/20 10/03/20 10/03/20 11:20 11:46 11:50 WBC 28.7 H RBC 2.67 L Hgb 8.0 L Hct 23.7 L MCV MCH MCHC RDW 16.6 H Plt Count 76 L Lymph % (Auto) [place] % (Auto) Lymph # (Auto) [place] # (Auto) Baso # (Auto) Seg Neutrophils % Seg Neuts % (Manual) Lymphocytes % (Manual) Monocytes % (Manual) Nucleated RBC % Seg Neutrophils # Seg Neutrophils # Man Lymphocytes # (Manual) Monocytes # (Manual) PT INR APTT Fibrinogen D-Dimer ABG pH POC ABG pCO2 POC ABG pO2 ABG pO2 ABG HCO3 ABG Base Excess ABG Hemoglobin ABG Oxyhemoglobin ABG Sodium ABG Potassium ABG Chloride ABG Glucose VBG pH Oxyhemoglobin Carboxyhemoglobin Sodium Potassium Chloride Carbon Dioxide BUN Creatinine Glucose POC Glucose 125 H Random Insulin C-Peptide Lactic Acid 8.00 H* Calcium Ionized Calcium Phosphorus Magnesium AST ALT Alkaline Phosphatase Lactate Dehydrogenase NT-Pro-B Natriuret Pep Total Protein Albumin Arterial Blood Glucose Arterial Blood Ionized Calcium Urine pH Urine WBC (Auto) U Epithel Cells (Auto) Vancomycin Trough Phenytoin Crossmatch 10/03/20 10/04/20 10/04/20 11:50 00:40 00:40 WBC RBC Hgb 6.8 L Hct 19.4 L* MCV MCH MCHC RDW Plt Count 49 L Lymph % (Auto) [place] % (Auto) Lymph # (Auto) [place] # (Auto) Baso # (Auto) Seg Neutrophils % Seg Neuts % (Manual) Lymphocytes % (Manual) Monocytes % (Manual) Nucleated RBC % Seg Neutrophils # Seg Neutrophils # Man Lymphocytes # (Manual) Monocytes # (Manual) PT INR APTT Fibrinogen D-Dimer ABG pH 7.244 L POC ABG pCO2 POC ABG pO2 ABG pO2 ABG HCO3 ABG Base Excess -4.5 L ABG Hemoglobin 7.3 L ABG Oxyhemoglobin ABG Sodium ABG Potassium ABG Chloride ABG Glucose VBG pH Oxyhemoglobin Carboxyhemoglobin Sodium Potassium Chloride Carbon Dioxide BUN Creatinine Glucose POC Glucose Random Insulin C-Peptide Lactic Acid Calcium Ionized Calcium Phosphorus Magnesium AST ALT Alkaline Phosphatase Lactate Dehydrogenase NT-Pro-B Natriuret Pep Total Protein Albumin Arterial Blood Glucose Arterial Blood Ionized Calcium Urine pH Urine WBC (Auto) U Epithel Cells (Auto) Vancomycin Trough Phenytoin Crossmatch 10/04/20 10/04/20 10/04/20 03:53 10:00 10:00 WBC 14.6 H RBC 2.57 L Hgb 7.6 L Hct 22.5 L MCV MCH MCHC RDW 15.8 H Plt Count 38 L Lymph % (Auto) 7.7 L [place] % (Auto) Lymph # (Auto) 1.1 L [place] # (Auto) 0.9 H Baso # (Auto) Seg Neutrophils % 85.6 H Seg Neuts % (Manual) Lymphocytes % (Manual) Monocytes % (Manual) Nucleated RBC % Seg Neutrophils # 12.5 H Seg Neutrophils # Man Lymphocytes # (Manual) Monocytes # (Manual) PT INR APTT Fibrinogen D-Dimer ABG pH POC ABG pCO2 POC ABG pO2 110.6 H ABG pO2 ABG HCO3 ABG Base Excess ABG Hemoglobin 6.7 L ABG Oxyhemoglobin ABG Sodium 132.0 L ABG Potassium ABG Chloride ABG Glucose 111 H VBG pH Oxyhemoglobin Carboxyhemoglobin Sodium 134 L D Potassium Chloride 97.6 L Carbon Dioxide BUN Creatinine 1.7 H Glucose POC Glucose Random Insulin C-Peptide Lactic Acid Calcium 6.3 L Ionized Calcium Phosphorus Magnesium AST 203 H ALT 81 H Alkaline Phosphatase Lactate Dehydrogenase NT-Pro-B Natriuret Pep Total Protein 3.9 L Albumin 2.3 L Arterial Blood Glucose 111 H Arterial Blood Ionized Calcium 3.5 L Urine pH Urine WBC (Auto) U Epithel Cells (Auto) Vancomycin Trough Phenytoin Crossmatch 10/04/20 10/04/20 10/04/20 10:00 10:00 10:14 WBC RBC Hgb Hct MCV MCH MCHC RDW Plt Count Lymph % (Auto) [place] % (Auto) Lymph # (Auto) [place] # (Auto) Baso # (Auto) Seg Neutrophils % Seg Neuts % (Manual) Lymphocytes % (Manual) Monocytes % (Manual) Nucleated RBC % Seg Neutrophils # Seg Neutrophils # Man Lymphocytes # (Manual) Monocytes # (Manual) PT INR APTT Fibrinogen D-Dimer > 87430 H ABG pH POC ABG pCO2 POC ABG pO2 ABG pO2 ABG HCO3 ABG Base Excess ABG Hemoglobin ABG Oxyhemoglobin ABG Sodium ABG Potassium ABG Chloride ABG Glucose VBG pH Oxyhemoglobin Carboxyhemoglobin Sodium Potassium Chloride Carbon Dioxide BUN Creatinine Glucose POC Glucose Random Insulin C-Peptide Lactic Acid 3.90 H* Calcium Ionized Calcium Phosphorus Magnesium AST ALT Alkaline Phosphatase Lactate Dehydrogenase NT-Pro-B Natriuret Pep 2788 H Total Protein Albumin Arterial Blood Glucose Arterial Blood Ionized Calcium Urine pH Urine WBC (Auto) U Epithel Cells (Auto) Vancomycin Trough Phenytoin Crossmatch 10/04/20 10/04/20 10/04/20 14:00 14:00 18:00 WBC 15.7 H RBC 3.17 L Hgb 9.3 L 9.6 L Hct 27.2 L 28.0 L MCV MCH MCHC RDW 16.9 H Plt Count 41 L Lymph % (Auto) 8.6 L [place] % (Auto) Lymph # (Auto) [place] # (Auto) 0.9 H Baso # (Auto) Seg Neutrophils % 85.4 H Seg Neuts % (Manual) Lymphocytes % (Manual) Monocytes % (Manual) Nucleated RBC % Seg Neutrophils # 13.4 H Seg Neutrophils # Man Lymphocytes # (Manual) Monocytes # (Manual) PT INR APTT Fibrinogen D-Dimer ABG pH POC ABG pCO2 POC ABG pO2 ABG pO2 ABG HCO3 ABG Base Excess ABG Hemoglobin ABG Oxyhemoglobin ABG Sodium ABG Potassium ABG Chloride ABG Glucose VBG pH Oxyhemoglobin Carboxyhemoglobin Sodium 133 L Potassium Chloride 96.4 L Carbon Dioxide BUN 18 H Creatinine 1.7 H Glucose POC Glucose Random Insulin C-Peptide Lactic Acid Calcium 6.3 L Ionized Calcium Phosphorus Magnesium AST ALT Alkaline Phosphatase Lactate Dehydrogenase NT-Pro-B Natriuret Pep Total Protein Albumin Arterial Blood Glucose Arterial Blood Ionized Calcium Urine pH Urine WBC (Auto) U Epithel Cells (Auto) Vancomycin Trough Phenytoin Crossmatch 10/04/20 10/04/20 10/05/20 18:00 22:00 05:00 WBC 17.6 H RBC 3.34 L Hgb 9.9 L Hct 29.4 L MCV MCH MCHC RDW 17.1 H Plt Count 56 L Lymph % (Auto) 8.5 L [place] % (Auto) Lymph # (Auto) [place] # (Auto) 1.0 H Baso # (Auto) Seg Neutrophils % 85.1 H Seg Neuts % (Manual) Lymphocytes % (Manual) Monocytes % (Manual) Nucleated RBC % Seg Neutrophils # 15.0 H Seg Neutrophils # Man Lymphocytes # (Manual) Monocytes # (Manual) PT INR APTT Fibrinogen D-Dimer ABG pH POC ABG pCO2 POC ABG pO2 ABG pO2 ABG HCO3 ABG Base Excess ABG Hemoglobin ABG Oxyhemoglobin ABG Sodium ABG Potassium ABG Chloride ABG Glucose VBG pH Oxyhemoglobin Carboxyhemoglobin Sodium 136 L Potassium Chloride Carbon Dioxide BUN 18 H Creatinine 1.7 H Glucose POC Glucose Random Insulin C-Peptide Lactic Acid 2.30 H* Calcium 6.6 L Ionized Calcium Phosphorus Magnesium AST ALT Alkaline Phosphatase Lactate Dehydrogenase NT-Pro-B Natriuret Pep Total Protein Albumin Arterial Blood Glucose Arterial Blood Ionized Calcium Urine pH Urine WBC (Auto) U Epithel Cells (Auto) Vancomycin Trough Phenytoin Crossmatch 10/05/20 10/05/20 10/05/20 05:00 05:00 05:03 WBC RBC Hgb Hct MCV MCH MCHC RDW Plt Count Lymph % (Auto) [place] % (Auto) Lymph # (Auto) [place] # (Auto) Baso # (Auto) Seg Neutrophils % Seg Neuts % (Manual) Lymphocytes % (Manual) Monocytes % (Manual) Nucleated RBC % Seg Neutrophils # Seg Neutrophils # Man Lymphocytes # (Manual) Monocytes # (Manual) PT INR APTT Fibrinogen D-Dimer ABG pH 7.458 H POC ABG pCO2 POC ABG pO2 ABG pO2 74.3 L ABG HCO3 27.5 H ABG Base Excess 3.4 H ABG Hemoglobin 10.0 L ABG Oxyhemoglobin ABG Sodium ABG Potassium ABG Chloride ABG Glucose VBG pH Oxyhemoglobin 94.9 L Carboxyhemoglobin Sodium Potassium Chloride Carbon Dioxide BUN 19 H Creatinine 1.8 H Glucose POC Glucose Random Insulin C-Peptide Lactic Acid Calcium 6.8 L Ionized Calcium 3.9 L Phosphorus Magnesium AST 225 H ALT 85 H Alkaline Phosphatase Lactate Dehydrogenase NT-Pro-B Natriuret Pep Total Protein 4.5 L Albumin 2.7 L Arterial Blood Glucose Arterial Blood Ionized Calcium Urine pH Urine WBC (Auto) U Epithel Cells (Auto) Vancomycin Trough Phenytoin Crossmatch 10/05/20 10/05/20 10/05/20 10:10 15:00 19:40 WBC RBC Hgb Hct MCV MCH MCHC RDW Plt Count Lymph % (Auto) [place] % (Auto) Lymph # (Auto) [place] # (Auto) Baso # (Auto) Seg Neutrophils % Seg Neuts % (Manual) Lymphocytes % (Manual) Monocytes % (Manual) Nucleated RBC % Seg Neutrophils # Seg Neutrophils # Man Lymphocytes # (Manual) Monocytes # (Manual) PT INR APTT Fibrinogen D-Dimer ABG pH POC ABG pCO2 POC ABG pO2 ABG pO2 ABG HCO3 ABG Base Excess ABG Hemoglobin ABG Oxyhemoglobin ABG Sodium ABG Potassium ABG Chloride ABG Glucose VBG pH Oxyhemoglobin Carboxyhemoglobin Sodium Potassium 3.5 L Chloride Carbon Dioxide 31 H 32 H BUN 19 H 19 H Creatinine 1.8 H 1.8 H Glucose POC Glucose Random Insulin C-Peptide Lactic Acid Calcium 7.0 L 7.2 L Ionized Calcium Phosphorus Magnesium 2.90 H AST ALT Alkaline Phosphatase Lactate Dehydrogenase NT-Pro-B Natriuret Pep Total Protein Albumin Arterial Blood Glucose Arterial Blood Ionized Calcium Urine pH Urine WBC (Auto) U Epithel Cells (Auto) Vancomycin Trough Phenytoin Crossmatch 10/06/20 10/06/20 10/06/20 01:05 03:12 04:00 WBC 17.1 H RBC 3.47 L Hgb Hct MCV MCH MCHC RDW 17.4 H Plt Count 82 L Lymph % (Auto) 8.3 L [place] % (Auto) Lymph # (Auto) Alcorn # (Auto) 1.1 H Baso # (Auto) Seg Neutrophils % 83.8 H Seg Neuts % (Manual) Lymphocytes % (Manual) Monocytes % (Manual) Nucleated RBC % Seg Neutrophils # 14.3 H Seg Neutrophils # Man Lymphocytes # (Manual) Monocytes # (Manual) PT INR APTT Fibrinogen D-Dimer ABG pH 7.474 H POC ABG pCO2 POC ABG pO2 129.5 H ABG pO2 ABG HCO3 ABG Base Excess ABG Hemoglobin 11.4 L ABG Oxyhemoglobin ABG Sodium 131.8 L ABG Potassium ABG Chloride ABG Glucose 103 H VBG pH Oxyhemoglobin Carboxyhemoglobin 0.3 L Sodium Potassium Chloride Carbon Dioxide BUN Creatinine Glucose POC Glucose Random Insulin C-Peptide Lactic Acid Calcium Ionized Calcium Phosphorus Magnesium 3.70 H AST ALT Alkaline Phosphatase Lactate Dehydrogenase NT-Pro-B Natriuret Pep Total Protein Albumin Arterial Blood Glucose 103 H Arterial Blood Ionized Calcium 4.2 L Urine pH Urine WBC (Auto) U Epithel Cells (Auto) Vancomycin Trough Phenytoin Crossmatch 10/06/20 10/06/20 10/06/20 04:00 05:31 08:12 WBC RBC Hgb Hct MCV MCH MCHC RDW Plt Count Lymph % (Auto) [place]corn % (Auto) Lymph # (Auto) [place] # (Auto) Baso # (Auto) Seg Neutrophils % Seg Neuts % (Manual) Lymphocytes % (Manual) Monocytes % (Manual) Nucleated RBC % Seg Neutrophils # Seg Neutrophils # Man Lymphocytes # (Manual) Monocytes # (Manual) PT INR APTT Fibrinogen D-Dimer ABG pH POC ABG pCO2 POC ABG pO2 ABG pO2 ABG HCO3 ABG Base Excess ABG Hemoglobin ABG Oxyhemoglobin ABG Sodium ABG Potassium ABG Chloride ABG Glucose VBG pH Oxyhemoglobin Carboxyhemoglobin Sodium Potassium 3.5 L Chloride Carbon Dioxide BUN 19 H Creatinine 1.8 H Glucose 102 H POC Glucose 116 H Random Insulin C-Peptide Lactic Acid Calcium 7.2 L Ionized Calcium Phosphorus Magnesium 5.40 H AST 307 H ALT 137 H Alkaline Phosphatase Lactate Dehydrogenase NT-Pro-B Natriuret Pep Total Protein 4.5 L Albumin 2.6 L Arterial Blood Glucose Arterial Blood Ionized Calcium Urine pH Urine WBC (Auto) U Epithel Cells (Auto) Vancomycin Trough Phenytoin Crossmatch 10/06/20 10/06/20 10/06/20 11:00 11:50 20:13 WBC RBC Hgb Hct MCV MCH MCHC RDW Plt Count Lymph % (Auto) [place] % (Auto) Lymph # (Auto) [place] # (Auto) Baso # (Auto) Seg Neutrophils % Seg Neuts % (Manual) Lymphocytes % (Manual) Monocytes % (Manual) Nucleated RBC % Seg Neutrophils # Seg Neutrophils # Man Lymphocytes # (Manual) Monocytes # (Manual) PT INR APTT Fibrinogen D-Dimer ABG pH POC ABG pCO2 POC ABG pO2 ABG pO2 ABG HCO3 ABG Base Excess ABG Hemoglobin ABG Oxyhemoglobin ABG Sodium ABG Potassium ABG Chloride ABG Glucose VBG pH Oxyhemoglobin Carboxyhemoglobin Sodium Potassium Chloride Carbon Dioxide BUN Creatinine Glucose POC Glucose 106 H Random Insulin C-Peptide Lactic Acid Calcium Ionized Calcium Phosphorus Magnesium 6.50 H 6.20 H AST ALT Alkaline Phosphatase Lactate Dehydrogenase NT-Pro-B Natriuret Pep Total Protein Albumin Arterial Blood Glucose Arterial Blood Ionized Calcium Urine pH Urine WBC (Auto) U Epithel Cells (Auto) Vancomycin Trough Phenytoin Crossmatch 10/06/20 10/06/20 10/06/20 20:17 22:29 23:57 WBC RBC Hgb Hct MCV MCH MCHC RDW Plt Count Lymph % (Auto) [place] % (Auto) Lymph # (Auto) [place] # (Auto) Baso # (Auto) Seg Neutrophils % Seg Neuts % (Manual) Lymphocytes % (Manual) Monocytes % (Manual) Nucleated RBC % Seg Neutrophils # Seg Neutrophils # Man Lymphocytes # (Manual) Monocytes # (Manual) PT INR APTT Fibrinogen D-Dimer ABG pH POC ABG pCO2 POC ABG pO2 ABG pO2 ABG HCO3 ABG Base Excess ABG Hemoglobin ABG Oxyhemoglobin ABG Sodium ABG Potassium ABG Chloride ABG Glucose VBG pH Oxyhemoglobin Carboxyhemoglobin Sodium Potassium Chloride Carbon Dioxide BUN Creatinine Glucose POC Glucose 112 H 126 H 133 H Random Insulin C-Peptide Lactic Acid Calcium Ionized Calcium Phosphorus Magnesium AST ALT Alkaline Phosphatase Lactate Dehydrogenase NT-Pro-B Natriuret Pep Total Protein Albumin Arterial Blood Glucose Arterial Blood Ionized Calcium Urine pH Urine WBC (Auto) U Epithel Cells (Auto) Vancomycin Trough Phenytoin Crossmatch 10/07/20 10/07/20 10/07/20 00:35 02:22 03:16 WBC RBC Hgb Hct MCV MCH MCHC RDW Plt Count Lymph % (Auto) [place] % (Auto) Lymph # (Auto) [place] # (Auto) Baso # (Auto) Seg Neutrophils % Seg Neuts % (Manual) Lymphocytes % (Manual) Monocytes % (Manual) Nucleated RBC % Seg Neutrophils # Seg Neutrophils # Man Lymphocytes # (Manual) Monocytes # (Manual) PT INR APTT Fibrinogen D-Dimer ABG pH POC ABG pCO2 POC ABG pO2 ABG pO2 ABG HCO3 ABG Base Excess ABG Hemoglobin 11.6 L ABG Oxyhemoglobin ABG Sodium ABG Potassium ABG Chloride ABG Glucose 156 H VBG pH Oxyhemoglobin Carboxyhemoglobin 0.3 L Sodium Potassium Chloride Carbon Dioxide BUN Creatinine Glucose POC Glucose 124 H Random Insulin C-Peptide Lactic Acid Calcium Ionized Calcium Phosphorus Magnesium 5.90 H AST ALT Alkaline Phosphatase Lactate Dehydrogenase NT-Pro-B Natriuret Pep Total Protein Albumin Arterial Blood Glucose 156 H Arterial Blood Ionized Calcium 4.2 L Urine pH Urine WBC (Auto) U Epithel Cells (Auto) Vancomycin Trough Phenytoin Crossmatch 10/07/20 10/07/20 10/07/20 04:06 05:45 07:05 WBC 19.2 H RBC 3.57 L Hgb Hct MCV MCH MCHC 35 H RDW 17.1 H Plt Count 129 L Lymph % (Auto) [place] % (Auto) Lymph # (Auto) [place] # (Auto) Baso # (Auto) Seg Neutrophils % Seg Neuts % (Manual) 94.0 H Lymphocytes % (Manual) 6.0 L Monocytes % (Manual) Nucleated RBC % Seg Neutrophils # Seg Neutrophils # Man 18.0 H Lymphocytes # (Manual) Monocytes # (Manual) PT INR APTT Fibrinogen D-Dimer ABG pH POC ABG pCO2 POC ABG pO2 ABG pO2 ABG HCO3 ABG Base Excess ABG Hemoglobin ABG Oxyhemoglobin ABG Sodium ABG Potassium ABG Chloride ABG Glucose VBG pH Oxyhemoglobin Carboxyhemoglobin Sodium Potassium Chloride Carbon Dioxide BUN Creatinine Glucose POC Glucose 135 H 149 H Random Insulin C-Peptide Lactic Acid Calcium Ionized Calcium Phosphorus Magnesium AST ALT Alkaline Phosphatase Lactate Dehydrogenase NT-Pro-B Natriuret Pep Total Protein Albumin Arterial Blood Glucose Arterial Blood Ionized Calcium Urine pH Urine WBC (Auto) U Epithel Cells (Auto) Vancomycin Trough Phenytoin Crossmatch 10/07/20 10/07/20 10/07/20 07:05 07:05 12:21 WBC RBC Hgb Hct MCV MCH MCHC RDW Plt Count Lymph % (Auto) [place] % (Auto) Lymph # (Auto) [place] # (Auto) Baso # (Auto) Seg Neutrophils % Seg Neuts % (Manual) Lymphocytes % (Manual) Monocytes % (Manual) Nucleated RBC % Seg Neutrophils # Seg Neutrophils # Man Lymphocytes # (Manual) Monocytes # (Manual) PT INR APTT Fibrinogen D-Dimer ABG pH POC ABG pCO2 POC ABG pO2 ABG pO2 ABG HCO3 ABG Base Excess ABG Hemoglobin ABG Oxyhemoglobin ABG Sodium ABG Potassium ABG Chloride ABG Glucose VBG pH Oxyhemoglobin Carboxyhemoglobin Sodium Potassium Chloride Carbon Dioxide BUN 21 H Creatinine 1.7 H Glucose 171 H POC Glucose 124 H Random Insulin C-Peptide Lactic Acid Calcium 7.4 L Ionized Calcium Phosphorus Magnesium 6.10 H AST 245 H ALT 147 H Alkaline Phosphatase Lactate Dehydrogenase NT-Pro-B Natriuret Pep Total Protein 5.3 L Albumin 2.8 L Arterial Blood Glucose Arterial Blood Ionized Calcium Urine pH Urine WBC (Auto) U Epithel Cells (Auto) Vancomycin Trough Phenytoin Crossmatch 10/07/20 10/07/20 10/07/20 19:52 21:00 21:50 WBC RBC Hgb Hct MCV MCH MCHC RDW Plt Count Lymph % (Auto) [place] % (Auto) Lymph # (Auto) [place] # (Auto) Baso # (Auto) Seg Neutrophils % Seg Neuts % (Manual) Lymphocytes % (Manual) Monocytes % (Manual) Nucleated RBC % Seg Neutrophils # Seg Neutrophils # Man Lymphocytes # (Manual) Monocytes # (Manual) PT INR APTT Fibrinogen D-Dimer ABG pH POC ABG pCO2 POC ABG pO2 ABG pO2 ABG HCO3 ABG Base Excess ABG Hemoglobin ABG Oxyhemoglobin ABG Sodium ABG Potassium ABG Chloride ABG Glucose VBG pH Oxyhemoglobin Carboxyhemoglobin Sodium Potassium Chloride Carbon Dioxide BUN Creatinine Glucose POC Glucose 193 H 138 H Random Insulin C-Peptide Lactic Acid Calcium Ionized Calcium 4.4 L Phosphorus Magnesium AST ALT Alkaline Phosphatase Lactate Dehydrogenase NT-Pro-B Natriuret Pep Total Protein Albumin Arterial Blood Glucose Arterial Blood Ionized Calcium Urine pH Urine WBC (Auto) U Epithel Cells (Auto) Vancomycin Trough Phenytoin Crossmatch 10/07/20 10/08/20 10/08/20 23:41 04:20 05:30 WBC RBC Hgb Hct MCV MCH MCHC RDW Plt Count Lymph % (Auto) [place] % (Auto) Lymph # (Auto) [place] # (Auto) Baso # (Auto) Seg Neutrophils % Seg Neuts % (Manual) Lymphocytes % (Manual) Monocytes % (Manual) Nucleated RBC % Seg Neutrophils # Seg Neutrophils # Man Lymphocytes # (Manual) Monocytes # (Manual) PT INR APTT Fibrinogen D-Dimer ABG pH 7.467 H POC ABG pCO2 POC ABG pO2 189.8 H ABG pO2 ABG HCO3 ABG Base Excess ABG Hemoglobin 10.8 L ABG Oxyhemoglobin ABG Sodium ABG Potassium ABG Chloride ABG Glucose 133 H VBG pH Oxyhemoglobin Carboxyhemoglobin Sodium Potassium Chloride Carbon Dioxide BUN Creatinine Glucose POC Glucose 118 H 114 H Random Insulin C-Peptide Lactic Acid Calcium Ionized Calcium Phosphorus Magnesium AST ALT Alkaline Phosphatase Lactate Dehydrogenase NT-Pro-B Natriuret Pep Total Protein Albumin Arterial Blood Glucose 133 H Arterial Blood Ionized Calcium 4.2 L Urine pH Urine WBC (Auto) U Epithel Cells (Auto) Vancomycin Trough Phenytoin Crossmatch 10/08/20 10/08/20 10/08/20 05:43 06:42 06:42 WBC 23.6 H RBC 3.54 L Hgb Hct MCV MCH MCHC RDW 17.8 H Plt Count Lymph % (Auto) [place] % (Auto) Lymph # (Auto) [place] # (Auto) Baso # (Auto) Seg Neutrophils % Seg Neuts % (Manual) 93.0 H Lymphocytes % (Manual) 3.0 L Monocytes % (Manual) Nucleated RBC % 1.0 H Seg Neutrophils # Seg Neutrophils # Man 21.9 H Lymphocytes # (Manual) 0.7 L Monocytes # (Manual) 0.9 H PT INR APTT Fibrinogen D-Dimer ABG pH POC ABG pCO2 POC ABG pO2 ABG pO2 ABG HCO3 ABG Base Excess ABG Hemoglobin ABG Oxyhemoglobin ABG Sodium ABG Potassium ABG Chloride ABG Glucose VBG pH Oxyhemoglobin Carboxyhemoglobin Sodium Potassium Chloride Carbon Dioxide BUN 28 H Creatinine 1.6 H Glucose 141 H POC Glucose 126 H Random Insulin C-Peptide Lactic Acid Calcium 7.6 L Ionized Calcium Phosphorus Magnesium AST 162 H ALT 103 H Alkaline Phosphatase Lactate Dehydrogenase NT-Pro-B Natriuret Pep Total Protein 5.4 L Albumin 2.7 L Arterial Blood Glucose Arterial Blood Ionized Calcium Urine pH Urine WBC (Auto) U Epithel Cells (Auto) Vancomycin Trough Phenytoin Crossmatch 10/08/20 10/08/20 10/08/20 11:20 16:05 20:14 WBC RBC Hgb Hct MCV MCH MCHC RDW Plt Count Lymph % (Auto) [place] % (Auto) Lymph # (Auto) [place] # (Auto) Baso # (Auto) Seg Neutrophils % Seg Neuts % (Manual) Lymphocytes % (Manual) Monocytes % (Manual) Nucleated RBC % Seg Neutrophils # Seg Neutrophils # Man Lymphocytes # (Manual) Monocytes # (Manual) PT INR APTT Fibrinogen D-Dimer ABG pH POC ABG pCO2 POC ABG pO2 ABG pO2 ABG HCO3 ABG Base Excess ABG Hemoglobin ABG Oxyhemoglobin ABG Sodium ABG Potassium ABG Chloride ABG Glucose VBG pH Oxyhemoglobin Carboxyhemoglobin Sodium Potassium Chloride Carbon Dioxide BUN Creatinine Glucose POC Glucose 127 H 172 H 147 H Random Insulin C-Peptide Lactic Acid Calcium Ionized Calcium Phosphorus Magnesium AST ALT Alkaline Phosphatase Lactate Dehydrogenase NT-Pro-B Natriuret Pep Total Protein Albumin Arterial Blood Glucose Arterial Blood Ionized Calcium Urine pH Urine WBC (Auto) U Epithel Cells (Auto) Vancomycin Trough Phenytoin Crossmatch 10/08/20 10/08/20 10/09/20 21:27 23:24 02:10 WBC RBC Hgb Hct MCV MCH MCHC RDW Plt Count Lymph % (Auto) [place] % (Auto) Lymph # (Auto) [place] # (Auto) Baso # (Auto) Seg Neutrophils % Seg Neuts % (Manual) Lymphocytes % (Manual) Monocytes % (Manual) Nucleated RBC % Seg Neutrophils # Seg Neutrophils # Man Lymphocytes # (Manual) Monocytes # (Manual) PT INR APTT Fibrinogen D-Dimer ABG pH POC ABG pCO2 POC ABG pO2 ABG pO2 ABG HCO3 ABG Base Excess ABG Hemoglobin ABG Oxyhemoglobin ABG Sodium ABG Potassium ABG Chloride ABG Glucose VBG pH Oxyhemoglobin Carboxyhemoglobin Sodium Potassium Chloride Carbon Dioxide BUN Creatinine Glucose POC Glucose 140 H 135 H 111 H Random Insulin C-Peptide Lactic Acid Calcium Ionized Calcium Phosphorus Magnesium AST ALT Alkaline Phosphatase Lactate Dehydrogenase NT-Pro-B Natriuret Pep Total Protein Albumin Arterial Blood Glucose Arterial Blood Ionized Calcium Urine pH Urine WBC (Auto) U Epithel Cells (Auto) Vancomycin Trough Phenytoin Crossmatch 10/09/20 10/09/20 10/09/20 03:44 04:39 05:46 WBC 19.7 H RBC 3.51 L Hgb Hct MCV MCH MCHC RDW 17.7 H Plt Count Lymph % (Auto) [place] % (Auto) Lymph # (Auto) [place] # (Auto) Baso # (Auto) Seg Neutrophils % Seg Neuts % (Manual) 86.0 H Lymphocytes % (Manual) 4.0 L Monocytes % (Manual) 9.0 H Nucleated RBC % Seg Neutrophils # Seg Neutrophils # Man 16.9 H Lymphocytes # (Manual) 0.8 L Monocytes # (Manual) 1.8 H PT INR APTT Fibrinogen D-Dimer ABG pH 7.513 H POC ABG pCO2 POC ABG pO2 33.6 L ABG pO2 ABG HCO3 ABG Base Excess ABG Hemoglobin 11.1 L ABG Oxyhemoglobin 70.2 L ABG Sodium ABG Potassium 3.2 L ABG Chloride 108.0 H ABG Glucose 108 H VBG pH Oxyhemoglobin Carboxyhemoglobin Sodium Potassium Chloride Carbon Dioxide BUN Creatinine Glucose POC Glucose 109 H Random Insulin C-Peptide Lactic Acid Calcium Ionized Calcium Phosphorus Magnesium AST ALT Alkaline Phosphatase Lactate Dehydrogenase NT-Pro-B Natriuret Pep Total Protein Albumin Arterial Blood Glucose 108 H Arterial Blood Ionized Calcium 4.3 L Urine pH Urine WBC (Auto) U Epithel Cells (Auto) Vancomycin Trough Phenytoin Crossmatch 10/09/20 10/10/20 10/10/20 05:46 04:00 04:00 WBC 18.4 H RBC Hgb Hct MCV MCH MCHC RDW 17.5 H Plt Count Lymph % (Auto) 9.8 L [place] % (Auto) 8.8 H Lymph # (Auto) [place] # (Auto) 1.6 H Baso # (Auto) Seg Neutrophils % 80.0 H Seg Neuts % (Manual) Lymphocytes % (Manual) Monocytes % (Manual) Nucleated RBC % Seg Neutrophils # 14.7 H Seg Neutrophils # Man Lymphocytes # (Manual) Monocytes # (Manual) PT INR APTT Fibrinogen D-Dimer ABG pH POC ABG pCO2 POC ABG pO2 ABG pO2 ABG HCO3 ABG Base Excess ABG Hemoglobin ABG Oxyhemoglobin ABG Sodium ABG Potassium ABG Chloride ABG Glucose VBG pH Oxyhemoglobin Carboxyhemoglobin Sodium 146 H Potassium 3.2 L 2.9 L* Chloride 108.9 H 112.6 H Carbon Dioxide BUN 34 H 28 H Creatinine 1.4 H 1.3 H Glucose 109 H 101 H POC Glucose Random Insulin C-Peptide Lactic Acid Calcium 7.6 L 7.8 L Ionized Calcium Phosphorus Magnesium AST 137 H 122 H ALT 99 H 81 H Alkaline Phosphatase Lactate Dehydrogenase NT-Pro-B Natriuret Pep Total Protein 5.1 L 5.2 L Albumin 2.6 L 2.7 L Arterial Blood Glucose Arterial Blood Ionized Calcium Urine pH Urine WBC (Auto) U Epithel Cells (Auto) Vancomycin Trough Phenytoin Crossmatch 10/10/20 10/10/20 10/11/20 04:42 09:50 00:44 WBC RBC Hgb Hct MCV MCH MCHC RDW Plt Count Lymph % (Auto) [place] % (Auto) Lymph # (Auto) [place] # (Auto) Baso # (Auto) Seg Neutrophils % Seg Neuts % (Manual) Lymphocytes % (Manual) Monocytes % (Manual) Nucleated RBC % Seg Neutrophils # Seg Neutrophils # Man Lymphocytes # (Manual) Monocytes # (Manual) PT INR APTT Fibrinogen D-Dimer ABG pH 7.534 H POC ABG pCO2 POC ABG pO2 ABG pO2 95.2 H ABG HCO3 ABG Base Excess ABG Hemoglobin 11.3 L ABG Oxyhemoglobin ABG Sodium ABG Potassium ABG Chloride ABG Glucose VBG pH Oxyhemoglobin Carboxyhemoglobin Sodium Potassium Chloride Carbon Dioxide BUN Creatinine Glucose POC Glucose 109 H 106 H Random Insulin C-Peptide Lactic Acid Calcium Ionized Calcium Phosphorus Magnesium AST ALT Alkaline Phosphatase Lactate Dehydrogenase NT-Pro-B Natriuret Pep Total Protein Albumin Arterial Blood Glucose Arterial Blood Ionized Calcium Urine pH Urine WBC (Auto) U Epithel Cells (Auto) Vancomycin Trough Phenytoin Crossmatch 10/11/20 10/11/20 10/11/20 04:00 04:00 06:08 WBC 27.0 H RBC Hgb Hct MCV MCH MCHC RDW 17.7 H Plt Count Lymph % (Auto) 6.3 L [place] % (Auto) Lymph # (Auto) [place] # (Auto) 1.5 H Baso # (Auto) Seg Neutrophils % 87.1 H Seg Neuts % (Manual) Lymphocytes % (Manual) Monocytes % (Manual) Nucleated RBC % Seg Neutrophils # 23.5 H Seg Neutrophils # Man Lymphocytes # (Manual) Monocytes # (Manual) PT INR APTT Fibrinogen D-Dimer ABG pH POC ABG pCO2 POC ABG pO2 ABG pO2 ABG HCO3 ABG Base Excess ABG Hemoglobin ABG Oxyhemoglobin ABG Sodium ABG Potassium ABG Chloride ABG Glucose VBG pH Oxyhemoglobin Carboxyhemoglobin Sodium Potassium 3.2 L Chloride 110.4 H Carbon Dioxide 19 L BUN 22 H Creatinine Glucose 116 H POC Glucose 107 H Random Insulin C-Peptide Lactic Acid Calcium 7.7 L Ionized Calcium Phosphorus Magnesium 1.60 L AST ALT Alkaline Phosphatase Lactate Dehydrogenase NT-Pro-B Natriuret Pep Total Protein Albumin Arterial Blood Glucose Arterial Blood Ionized Calcium Urine pH Urine WBC (Auto) U Epithel Cells (Auto) Vancomycin Trough Phenytoin Crossmatch 10/11/20 10/11/20 10/12/20 11:41 13:26 03:52 WBC RBC Hgb Hct MCV MCH MCHC RDW Plt Count Lymph % (Auto) [place] % (Auto) Lymph # (Auto) [place] # (Auto) Baso # (Auto) Seg Neutrophils % Seg Neuts % (Manual) Lymphocytes % (Manual) Monocytes % (Manual) Nucleated RBC % Seg Neutrophils # Seg Neutrophils # Man Lymphocytes # (Manual) Monocytes # (Manual) PT INR APTT Fibrinogen D-Dimer ABG pH POC ABG pCO2 POC ABG pO2 ABG pO2 ABG HCO3 ABG Base Excess ABG Hemoglobin ABG Oxyhemoglobin ABG Sodium ABG Potassium ABG Chloride ABG Glucose VBG pH Oxyhemoglobin Carboxyhemoglobin Sodium Potassium Chloride Carbon Dioxide BUN Creatinine Glucose POC Glucose 116 H 114 H Random Insulin C-Peptide Lactic Acid Calcium Ionized Calcium Phosphorus Magnesium AST ALT Alkaline Phosphatase Lactate Dehydrogenase NT-Pro-B Natriuret Pep Total Protein Albumin Arterial Blood Glucose Arterial Blood Ionized Calcium Urine pH Urine WBC (Auto) 24.0 H U Epithel Cells (Auto) Vancomycin Trough Phenytoin Crossmatch 10/12/20 10/12/20 10/12/20 04:24 14:47 21:33 WBC RBC Hgb Hct MCV MCH MCHC RDW Plt Count Lymph % (Auto) [place] % (Auto) Lymph # (Auto) [place] # (Auto) Baso # (Auto) Seg Neutrophils % Seg Neuts % (Manual) Lymphocytes % (Manual) Monocytes % (Manual) Nucleated RBC % Seg Neutrophils # Seg Neutrophils # Man Lymphocytes # (Manual) Monocytes # (Manual) PT INR APTT Fibrinogen D-Dimer ABG pH POC ABG pCO2 POC ABG pO2 ABG pO2 ABG HCO3 ABG Base Excess ABG Hemoglobin ABG Oxyhemoglobin ABG Sodium ABG Potassium ABG Chloride ABG Glucose VBG pH Oxyhemoglobin Carboxyhemoglobin Sodium Potassium Chloride 109.9 H Carbon Dioxide 13 L BUN 18 H Creatinine Glucose 119 H POC Glucose 107 H Random Insulin C-Peptide Lactic Acid Calcium 7.6 L Ionized Calcium Phosphorus Magnesium 1.60 L AST ALT Alkaline Phosphatase Lactate Dehydrogenase NT-Pro-B Natriuret Pep Total Protein Albumin Arterial Blood Glucose Arterial Blood Ionized Calcium Urine pH Urine WBC (Auto) U Epithel Cells (Auto) Vancomycin Trough Phenytoin Crossmatch 10/12/20 10/12/20 10/13/20 Unknown Unknown 07:00 WBC 24.3 H RBC 3.38 L Hgb 9.8 L Hct MCV MCH MCHC RDW 18.7 H Plt Count Lymph % (Auto) [place] % (Auto) Lymph # (Auto) [place] # (Auto) Baso # (Auto) Seg Neutrophils % Seg Neuts % (Manual) 93.5 H Lymphocytes % (Manual) 4.5 L Monocytes % (Manual) Nucleated RBC % Seg Neutrophils # Seg Neutrophils # Man 22.7 H Lymphocytes # (Manual) 1.1 L Monocytes # (Manual) PT INR APTT Fibrinogen D-Dimer ABG pH POC ABG pCO2 POC ABG pO2 ABG pO2 ABG HCO3 ABG Base Excess ABG Hemoglobin ABG Oxyhemoglobin ABG Sodium ABG Potassium ABG Chloride ABG Glucose VBG pH Oxyhemoglobin Carboxyhemoglobin Sodium 135 L D Potassium 3.1 L Chloride Carbon Dioxide 17 L BUN Creatinine Glucose 510 H* POC Glucose Random Insulin C-Peptide Lactic Acid Calcium 7.2 L Ionized Calcium Phosphorus Magnesium AST ALT Alkaline Phosphatase Lactate Dehydrogenase NT-Pro-B Natriuret Pep Total Protein Albumin Arterial Blood Glucose Arterial Blood Ionized Calcium Urine pH Urine WBC (Auto) U Epithel Cells (Auto) Vancomycin Trough Phenytoin 5.7 L Crossmatch 10/13/20 10/13/20 10/13/20 07:00 07:00 07:18 WBC 23.6 H RBC 3.26 L Hgb 9.4 L Hct 28.7 L MCV MCH MCHC RDW 18.3 H Plt Count Lymph % (Auto) [place] % (Auto) Lymph # (Auto) [place] # (Auto) Baso # (Auto) Seg Neutrophils % Seg Neuts % (Manual) Lymphocytes % (Manual) Monocytes % (Manual) Nucleated RBC % Seg Neutrophils # Seg Neutrophils # Man Lymphocytes # (Manual) Monocytes # (Manual) PT INR APTT Fibrinogen D-Dimer ABG pH 7.473 H POC ABG pCO2 20.7 L POC ABG pO2 137.9 H ABG pO2 ABG HCO3 ABG Base Excess ABG Hemoglobin 11.2 L ABG Oxyhemoglobin 98.3 H ABG Sodium 135.9 L ABG Potassium ABG Chloride 111.0 H ABG Glucose 109 H VBG pH Oxyhemoglobin Carboxyhemoglobin 0.3 L Sodium 135 L Potassium 3.5 L Chloride 109.1 H Carbon Dioxide 18 L BUN Creatinine Glucose POC Glucose Random Insulin C-Peptide Lactic Acid Calcium 7.3 L Ionized Calcium Phosphorus Magnesium 1.60 L AST ALT Alkaline Phosphatase Lactate Dehydrogenase NT-Pro-B Natriuret Pep Total Protein Albumin Arterial Blood Glucose 109 H Arterial Blood Ionized Calcium Urine pH Urine WBC (Auto) U Epithel Cells (Auto) Vancomycin Trough Phenytoin Crossmatch 10/14/20 10/14/20 10/15/20 04:00 04:00 05:50 WBC 28.6 H 23.2 H RBC 3.61 L 3.43 L Hgb 9.9 L Hct 30.0 L MCV MCH MCHC RDW 18.3 H 18.2 H Plt Count Lymph % (Auto) [place] % (Auto) Lymph # (Auto) [place] # (Auto) Baso # (Auto) Seg Neutrophils % Seg Neuts % (Manual) 88.0 H 90.0 H Lymphocytes % (Manual) 5.0 L 4.0 L Monocytes % (Manual) Nucleated RBC % Seg Neutrophils # Seg Neutrophils # Man 25.2 H 20.9 H Lymphocytes # (Manual) 0.9 L Monocytes # (Manual) 1.4 H 0.9 H PT INR APTT Fibrinogen D-Dimer ABG pH POC ABG pCO2 POC ABG pO2 ABG pO2 ABG HCO3 ABG Base Excess ABG Hemoglobin ABG Oxyhemoglobin ABG Sodium ABG Potassium ABG Chloride ABG Glucose VBG pH Oxyhemoglobin Carboxyhemoglobin Sodium Potassium Chloride 109.9 H Carbon Dioxide 17 L BUN Creatinine Glucose POC Glucose Random Insulin C-Peptide Lactic Acid Calcium Ionized Calcium Phosphorus Magnesium AST ALT Alkaline Phosphatase Lactate Dehydrogenase NT-Pro-B Natriuret Pep Total Protein Albumin Arterial Blood Glucose Arterial Blood Ionized Calcium Urine pH Urine WBC (Auto) U Epithel Cells (Auto) Vancomycin Trough Phenytoin Crossmatch 10/15/20 10/16/20 10/17/20 05:50 11:57 04:57 WBC 15.2 H RBC 3.43 L Hgb Hct MCV MCH MCHC RDW 18.1 H Plt Count Lymph % (Auto) [place] % (Auto) Lymph # (Auto) [place] # (Auto) Baso # (Auto) Seg Neutrophils % Seg Neuts % (Manual) Lymphocytes % (Manual) Monocytes % (Manual) Nucleated RBC % Seg Neutrophils # Seg Neutrophils # Man Lymphocytes # (Manual) Monocytes # (Manual) PT INR APTT Fibrinogen D-Dimer ABG pH POC ABG pCO2 POC ABG pO2 ABG pO2 ABG HCO3 ABG Base Excess ABG Hemoglobin ABG Oxyhemoglobin ABG Sodium ABG Potassium ABG Chloride ABG Glucose VBG pH Oxyhemoglobin Carboxyhemoglobin Sodium Potassium Chloride 110.3 H Carbon Dioxide 18 L BUN Creatinine Glucose 105 H POC Glucose 111 H Random Insulin C-Peptide Lactic Acid Calcium 8.3 L Ionized Calcium Phosphorus Magnesium AST ALT Alkaline Phosphatase Lactate Dehydrogenase NT-Pro-B Natriuret Pep Total Protein Albumin Arterial Blood Glucose Arterial Blood Ionized Calcium Urine pH Urine WBC (Auto) U Epithel Cells (Auto) Vancomycin Trough Phenytoin Crossmatch 10/17/20 10/17/20 10/18/20 05:25 21:16 01:31 WBC RBC Hgb Hct MCV MCH MCHC RDW Plt Count Lymph % (Auto) [place] % (Auto) Lymph # (Auto) [place] # (Auto) Baso # (Auto) Seg Neutrophils % Seg Neuts % (Manual) Lymphocytes % (Manual) Monocytes % (Manual) Nucleated RBC % Seg Neutrophils # Seg Neutrophils # Man Lymphocytes # (Manual) Monocytes # (Manual) PT INR APTT Fibrinogen D-Dimer ABG pH POC ABG pCO2 POC ABG pO2 ABG pO2 ABG HCO3 ABG Base Excess ABG Hemoglobin ABG Oxyhemoglobin ABG Sodium ABG Potassium ABG Chloride ABG Glucose VBG pH Oxyhemoglobin Carboxyhemoglobin Sodium Potassium Chloride Carbon Dioxide BUN Creatinine Glucose POC Glucose 107 H 106 H 119 H Random Insulin C-Peptide Lactic Acid Calcium Ionized Calcium Phosphorus Magnesium AST ALT Alkaline Phosphatase Lactate Dehydrogenase NT-Pro-B Natriuret Pep Total Protein Albumin Arterial Blood Glucose Arterial Blood Ionized Calcium Urine pH Urine WBC (Auto) U Epithel Cells (Auto) Vancomycin Trough Phenytoin Crossmatch 10/18/20 10/18/20 10/19/20 05:45 11:23 01:14 WBC RBC Hgb Hct MCV MCH MCHC RDW Plt Count Lymph % (Auto) [place] % (Auto) Lymph # (Auto) [place] # (Auto) Baso # (Auto) Seg Neutrophils % Seg Neuts % (Manual) Lymphocytes % (Manual) Monocytes % (Manual) Nucleated RBC % Seg Neutrophils # Seg Neutrophils # Man Lymphocytes # (Manual) Monocytes # (Manual) PT INR APTT Fibrinogen D-Dimer ABG pH POC ABG pCO2 POC ABG pO2 ABG pO2 ABG HCO3 ABG Base Excess ABG Hemoglobin ABG Oxyhemoglobin ABG Sodium ABG Potassium ABG Chloride ABG Glucose VBG pH Oxyhemoglobin Carboxyhemoglobin Sodium Potassium Chloride Carbon Dioxide BUN Creatinine Glucose POC Glucose 106 H 115 H 108 H Random Insulin C-Peptide Lactic Acid Calcium Ionized Calcium Phosphorus Magnesium AST ALT Alkaline Phosphatase Lactate Dehydrogenase NT-Pro-B Natriuret Pep Total Protein Albumin Arterial Blood Glucose Arterial Blood Ionized Calcium Urine pH Urine WBC (Auto) U Epithel Cells (Auto) Vancomycin Trough Phenytoin Crossmatch 10/19/20 10/20/20 10/20/20 09:57 05:40 07:59 WBC RBC Hgb Hct MCV MCH MCHC RDW Plt Count Lymph % (Auto) [place] % (Auto) Lymph # (Auto) [place] # (Auto) Baso # (Auto) Seg Neutrophils % Seg Neuts % (Manual) Lymphocytes % (Manual) Monocytes % (Manual) Nucleated RBC % Seg Neutrophils # Seg Neutrophils # Man Lymphocytes # (Manual) Monocytes # (Manual) PT INR APTT Fibrinogen D-Dimer ABG pH POC ABG pCO2 POC ABG pO2 ABG pO2 ABG HCO3 ABG Base Excess ABG Hemoglobin ABG Oxyhemoglobin ABG Sodium ABG Potassium ABG Chloride ABG Glucose VBG pH Oxyhemoglobin Carboxyhemoglobin Sodium Potassium Chloride Carbon Dioxide BUN Creatinine Glucose 106 H POC Glucose 122 H 109 H Random Insulin C-Peptide Lactic Acid Calcium Ionized Calcium Phosphorus Magnesium AST ALT Alkaline Phosphatase Lactate Dehydrogenase NT-Pro-B Natriuret Pep Total Protein Albumin Arterial Blood Glucose Arterial Blood Ionized Calcium Urine pH Urine WBC (Auto) U Epithel Cells (Auto) Vancomycin Trough Phenytoin Crossmatch 10/20/20 10/20/20 10/21/20 16:52 16:52 13:54 WBC 18.8 H 17.0 H RBC Hgb Hct MCV MCH MCHC RDW 17.7 H 17.8 H Plt Count 547 H 544 H Lymph % (Auto) 11.2 L [place] % (Auto) 8.1 H Lymph # (Auto) [place] # (Auto) 1.5 H Baso # (Auto) 0.2 H Seg Neutrophils % 78.8 H Seg Neuts % (Manual) Lymphocytes % (Manual) Monocytes % (Manual) Nucleated RBC % Seg Neutrophils # 14.8 H Seg Neutrophils # Man Lymphocytes # (Manual) Monocytes # (Manual) PT INR APTT Fibrinogen D-Dimer ABG pH POC ABG pCO2 POC ABG pO2 ABG pO2 ABG HCO3 ABG Base Excess ABG Hemoglobin ABG Oxyhemoglobin ABG Sodium ABG Potassium ABG Chloride ABG Glucose VBG pH Oxyhemoglobin Carboxyhemoglobin Sodium Potassium Chloride Carbon Dioxide BUN Creatinine Glucose POC Glucose Random Insulin C-Peptide Lactic Acid Calcium Ionized Calcium Phosphorus Magnesium AST ALT Alkaline Phosphatase Lactate Dehydrogenase NT-Pro-B Natriuret Pep Total Protein Albumin Arterial Blood Glucose Arterial Blood Ionized Calcium Urine pH Urine WBC (Auto) U Epithel Cells (Auto) Vancomycin Trough 34.5 H Phenytoin Crossmatch 10/21/20 10/22/20 10/23/20 13:54 07:26 05:34 WBC 18.7 H 13.0 H RBC 3.64 L 3.50 L Hgb Hct 30.0 L MCV MCH MCHC 35 H RDW 17.7 H 17.6 H Plt Count 502 H 503 H Lymph % (Auto) [place] % (Auto) Lymph # (Auto) [place] # (Auto) Baso # (Auto) Seg Neutrophils % Seg Neuts % (Manual) Lymphocytes % (Manual) Monocytes % (Manual) Nucleated RBC % Seg Neutrophils # Seg Neutrophils # Man Lymphocytes # (Manual) Monocytes # (Manual) PT INR APTT Fibrinogen D-Dimer ABG pH POC ABG pCO2 POC ABG pO2 ABG pO2 ABG HCO3 ABG Base Excess ABG Hemoglobin ABG Oxyhemoglobin ABG Sodium ABG Potassium ABG Chloride ABG Glucose VBG pH Oxyhemoglobin Carboxyhemoglobin Sodium 136 L Potassium Chloride Carbon Dioxide BUN Creatinine Glucose 120 H POC Glucose Random Insulin C-Peptide Lactic Acid Calcium Ionized Calcium Phosphorus Magnesium AST ALT Alkaline Phosphatase Lactate Dehydrogenase NT-Pro-B Natriuret Pep Total Protein Albumin Arterial Blood Glucose Arterial Blood Ionized Calcium Urine pH Urine WBC (Auto) U Epithel Cells (Auto) Vancomycin Trough Phenytoin Crossmatch 10/23/20 10/26/20 10/27/20 05:34 10:30 07:53 WBC 13.6 H RBC 3.38 L Hgb 10.0 L Hct 28.8 L MCV MCH MCHC 35 H RDW 17.6 H Plt Count Lymph % (Auto) [place] % (Auto) Lymph # (Auto) [place] # (Auto) Baso # (Auto) Seg Neutrophils % Seg Neuts % (Manual) Lymphocytes % (Manual) Monocytes % (Manual) Nucleated RBC % Seg Neutrophils # Seg Neutrophils # Man Lymphocytes # (Manual) Monocytes # (Manual) PT INR APTT Fibrinogen D-Dimer ABG pH 7.459 H POC ABG pCO2 POC ABG pO2 ABG pO2 112.2 H ABG HCO3 ABG Base Excess ABG Hemoglobin ABG Oxyhemoglobin ABG Sodium ABG Potassium ABG Chloride ABG Glucose VBG pH Oxyhemoglobin Carboxyhemoglobin Sodium 135 L Potassium Chloride Carbon Dioxide BUN Creatinine Glucose 105 H POC Glucose Random Insulin C-Peptide Lactic Acid Calcium Ionized Calcium Phosphorus Magnesium AST ALT Alkaline Phosphatase Lactate Dehydrogenase NT-Pro-B Natriuret Pep Total Protein Albumin Arterial Blood Glucose Arterial Blood Ionized Calcium Urine pH Urine WBC (Auto) U Epithel Cells (Auto) Vancomycin Trough Phenytoin Crossmatch 10/27/20 10/27/20 10/28/20 07:53 11:31 05:19 WBC RBC Hgb Hct MCV MCH MCHC RDW Plt Count Lymph % (Auto) [place] % (Auto) Lymph # (Auto) [place] # (Auto) Baso # (Auto) Seg Neutrophils % Seg Neuts % (Manual) Lymphocytes % (Manual) Monocytes % (Manual) Nucleated RBC % Seg Neutrophils # Seg Neutrophils # Man Lymphocytes # (Manual) Monocytes # (Manual) PT INR APTT Fibrinogen D-Dimer ABG pH POC ABG pCO2 POC ABG pO2 ABG pO2 ABG HCO3 ABG Base Excess ABG Hemoglobin ABG Oxyhemoglobin ABG Sodium ABG Potassium ABG Chloride ABG Glucose VBG pH Oxyhemoglobin Carboxyhemoglobin Sodium Potassium Chloride Carbon Dioxide BUN 20 H Creatinine Glucose 112 H POC Glucose 113 H 112 H Random Insulin C-Peptide Lactic Acid Calcium Ionized Calcium Phosphorus Magnesium AST 83 H ALT Alkaline Phosphatase Lactate Dehydrogenase NT-Pro-B Natriuret Pep Total Protein Albumin 3.8 L Arterial Blood Glucose Arterial Blood Ionized Calcium Urine pH Urine WBC (Auto) U Epithel Cells (Auto) Vancomycin Trough Phenytoin Crossmatch 10/29/20 10/29/20 10/29/20 07:56 07:56 11:37 WBC 13.6 H RBC Hgb Hct MCV MCH MCHC RDW 17.0 H Plt Count Lymph % (Auto) [place] % (Auto) Lymph # (Auto) [place] # (Auto) Baso # (Auto) Seg Neutrophils % Seg Neuts % (Manual) 80.0 H Lymphocytes % (Manual) Monocytes % (Manual) Nucleated RBC % Seg Neutrophils # Seg Neutrophils # Man 10.9 H Lymphocytes # (Manual) Monocytes # (Manual) PT INR APTT Fibrinogen D-Dimer ABG pH POC ABG pCO2 POC ABG pO2 ABG pO2 ABG HCO3 ABG Base Excess ABG Hemoglobin ABG Oxyhemoglobin ABG Sodium ABG Potassium ABG Chloride ABG Glucose VBG pH Oxyhemoglobin Carboxyhemoglobin Sodium Potassium Chloride Carbon Dioxide BUN Creatinine Glucose POC Glucose 108 H Random Insulin C-Peptide Lactic Acid Calcium Ionized Calcium Phosphorus 4.70 H Magnesium AST ALT Alkaline Phosphatase Lactate Dehydrogenase NT-Pro-B Natriuret Pep Total Protein Albumin Arterial Blood Glucose Arterial Blood Ionized Calcium Urine pH Urine WBC (Auto) U Epithel Cells (Auto) Vancomycin Trough Phenytoin Crossmatch 10/29/20 10/30/20 10/30/20 13:32 12:11 17:19 WBC RBC Hgb Hct MCV MCH MCHC RDW Plt Count Lymph % (Auto) [place] % (Auto) Lymph # (Auto) [place] # (Auto) Baso # (Auto) Seg Neutrophils % Seg Neuts % (Manual) Lymphocytes % (Manual) Monocytes % (Manual) Nucleated RBC % Seg Neutrophils # Seg Neutrophils # Man Lymphocytes # (Manual) Monocytes # (Manual) PT INR APTT Fibrinogen D-Dimer ABG pH POC ABG pCO2 POC ABG pO2 ABG pO2 ABG HCO3 ABG Base Excess ABG Hemoglobin ABG Oxyhemoglobin ABG Sodium ABG Potassium ABG Chloride ABG Glucose VBG pH Oxyhemoglobin Carboxyhemoglobin Sodium Potassium Chloride Carbon Dioxide BUN Creatinine Glucose POC Glucose 108 H 106 H 107 H Random Insulin C-Peptide Lactic Acid Calcium Ionized Calcium Phosphorus Magnesium AST ALT Alkaline Phosphatase Lactate Dehydrogenase NT-Pro-B Natriuret Pep Total Protein Albumin Arterial Blood Glucose Arterial Blood Ionized Calcium Urine pH Urine WBC (Auto) U Epithel Cells (Auto) Vancomycin Trough Phenytoin Crossmatch 10/31/20 10/31/20 11/01/20 03:20 05:43 04:55 WBC RBC Hgb Hct MCV MCH MCHC RDW Plt Count Lymph % (Auto) [place] % (Auto) Lymph # (Auto) [place] # (Auto) Baso # (Auto) Seg Neutrophils % Seg Neuts % (Manual) Lymphocytes % (Manual) Monocytes % (Manual) Nucleated RBC % Seg Neutrophils # Seg Neutrophils # Man Lymphocytes # (Manual) Monocytes # (Manual) PT INR APTT Fibrinogen D-Dimer ABG pH POC ABG pCO2 POC ABG pO2 ABG pO2 ABG HCO3 ABG Base Excess ABG Hemoglobin ABG Oxyhemoglobin ABG Sodium ABG Potassium ABG Chloride ABG Glucose VBG pH Oxyhemoglobin Carboxyhemoglobin Sodium Potassium Chloride Carbon Dioxide BUN Creatinine Glucose POC Glucose 108 H 115 H 108 H Random Insulin C-Peptide Lactic Acid Calcium Ionized Calcium Phosphorus Magnesium AST ALT Alkaline Phosphatase Lactate Dehydrogenase NT-Pro-B Natriuret Pep Total Protein Albumin Arterial Blood Glucose Arterial Blood Ionized Calcium Urine pH Urine WBC (Auto) U Epithel Cells (Auto) Vancomycin Trough Phenytoin Crossmatch 11/01/20 11/01/20 11/01/20 05:01 16:47 21:36 WBC RBC Hgb Hct MCV MCH MCHC RDW Plt Count Lymph % (Auto) [place] % (Auto) Lymph # (Auto) [place] # (Auto) Baso # (Auto) Seg Neutrophils % Seg Neuts % (Manual) Lymphocytes % (Manual) Monocytes % (Manual) Nucleated RBC % Seg Neutrophils # Seg Neutrophils # Man Lymphocytes # (Manual) Monocytes # (Manual) PT INR APTT Fibrinogen D-Dimer ABG pH POC ABG pCO2 POC ABG pO2 ABG pO2 ABG HCO3 ABG Base Excess ABG Hemoglobin ABG Oxyhemoglobin ABG Sodium ABG Potassium ABG Chloride ABG Glucose VBG pH Oxyhemoglobin Carboxyhemoglobin Sodium 135 L Potassium Chloride Carbon Dioxide BUN Creatinine Glucose POC Glucose 116 H 112 H Random Insulin C-Peptide Lactic Acid Calcium Ionized Calcium Phosphorus Magnesium AST 93 H ALT Alkaline Phosphatase 132 H Lactate Dehydrogenase NT-Pro-B Natriuret Pep Total Protein Albumin 3.6 L Arterial Blood Glucose Arterial Blood Ionized Calcium Urine pH Urine WBC (Auto) U Epithel Cells (Auto) Vancomycin Trough Phenytoin Crossmatch 11/02/20 11/02/20 11/02/20 17:45 19:19 19:19 WBC RBC Hgb Hct MCV MCH MCHC RDW Plt Count Lymph % (Auto) [place] % (Auto) Lymph # (Auto) [place] # (Auto) Baso # (Auto) Seg Neutrophils % Seg Neuts % (Manual) Lymphocytes % (Manual) Monocytes % (Manual) Nucleated RBC % Seg Neutrophils # Seg Neutrophils # Man Lymphocytes # (Manual) Monocytes # (Manual) PT INR APTT Fibrinogen D-Dimer ABG pH POC ABG pCO2 POC ABG pO2 ABG pO2 ABG HCO3 ABG Base Excess ABG Hemoglobin ABG Oxyhemoglobin ABG Sodium ABG Potassium ABG Chloride ABG Glucose VBG pH Oxyhemoglobin Carboxyhemoglobin Sodium Potassium Chloride Carbon Dioxide BUN Creatinine Glucose POC Glucose 107 H Random Insulin 43.2 H C-Peptide 6.23 H Lactic Acid Calcium Ionized Calcium Phosphorus Magnesium AST ALT Alkaline Phosphatase Lactate Dehydrogenase NT-Pro-B Natriuret Pep Total Protein Albumin Arterial Blood Glucose Arterial Blood Ionized Calcium Urine pH Urine WBC (Auto) U Epithel Cells (Auto) Vancomycin Trough Phenytoin Crossmatch 11/03/20 11/04/20 11/04/20 21:49 05:00 05:00 WBC 13.8 H RBC Hgb Hct MCV MCH MCHC RDW 16.6 H Plt Count Lymph % (Auto) 11.8 L [place] % (Auto) 11.0 H Lymph # (Auto) [place] # (Auto) 1.5 H Baso # (Auto) Seg Neutrophils % 75.1 H Seg Neuts % (Manual) Lymphocytes % (Manual) Monocytes % (Manual) Nucleated RBC % Seg Neutrophils # 10.4 H Seg Neutrophils # Man Lymphocytes # (Manual) Monocytes # (Manual) PT INR APTT Fibrinogen D-Dimer ABG pH POC ABG pCO2 POC ABG pO2 ABG pO2 ABG HCO3 ABG Base Excess ABG Hemoglobin ABG Oxyhemoglobin ABG Sodium ABG Potassium ABG Chloride ABG Glucose VBG pH Oxyhemoglobin Carboxyhemoglobin Sodium Potassium Chloride Carbon Dioxide BUN Creatinine Glucose 112 H POC Glucose 109 H Random Insulin C-Peptide Lactic Acid Calcium Ionized Calcium Phosphorus Magnesium AST 90 H ALT Alkaline Phosphatase Lactate Dehydrogenase NT-Pro-B Natriuret Pep Total Protein Albumin 3.8 L Arterial Blood Glucose Arterial Blood Ionized Calcium Urine pH Urine WBC (Auto) U Epithel Cells (Auto) Vancomycin Trough Phenytoin Crossmatch 11/04/20 11/04/20 11/05/20 06:03 23:47 07:47 WBC RBC Hgb Hct MCV MCH MCHC RDW Plt Count Lymph % (Auto) [place] % (Auto) Lymph # (Auto) [place] # (Auto) Baso # (Auto) Seg Neutrophils % Seg Neuts % (Manual) Lymphocytes % (Manual) Monocytes % (Manual) Nucleated RBC % Seg Neutrophils # Seg Neutrophils # Man Lymphocytes # (Manual) Monocytes # (Manual) PT INR APTT Fibrinogen D-Dimer ABG pH POC ABG pCO2 POC ABG pO2 ABG pO2 ABG HCO3 ABG Base Excess ABG Hemoglobin ABG Oxyhemoglobin ABG Sodium ABG Potassium ABG Chloride ABG Glucose VBG pH Oxyhemoglobin Carboxyhemoglobin Sodium Potassium Chloride Carbon Dioxide BUN Creatinine Glucose POC Glucose 107 H 121 H 111 H Random Insulin C-Peptide Lactic Acid Calcium Ionized Calcium Phosphorus Magnesium AST ALT Alkaline Phosphatase Lactate Dehydrogenase NT-Pro-B Natriuret Pep Total Protein Albumin Arterial Blood Glucose Arterial Blood Ionized Calcium Urine pH Urine WBC (Auto) U Epithel Cells (Auto) Vancomycin Trough Phenytoin Crossmatch 11/05/20 11/06/20 11/06/20 23:24 17:04 23:36 WBC RBC Hgb Hct MCV MCH MCHC RDW Plt Count Lymph % (Auto) [place] % (Auto) Lymph # (Auto) [place] # (Auto) Baso # (Auto) Seg Neutrophils % Seg Neuts % (Manual) Lymphocytes % (Manual) Monocytes % (Manual) Nucleated RBC % Seg Neutrophils # Seg Neutrophils # Man Lymphocytes # (Manual) Monocytes # (Manual) PT INR APTT Fibrinogen D-Dimer ABG pH POC ABG pCO2 POC ABG pO2 ABG pO2 ABG HCO3 ABG Base Excess ABG Hemoglobin ABG Oxyhemoglobin ABG Sodium ABG Potassium ABG Chloride ABG Glucose VBG pH Oxyhemoglobin Carboxyhemoglobin Sodium Potassium Chloride Carbon Dioxide BUN Creatinine Glucose POC Glucose 111 H 112 H 108 H Random Insulin C-Peptide Lactic Acid Calcium Ionized Calcium Phosphorus Magnesium AST ALT Alkaline Phosphatase Lactate Dehydrogenase NT-Pro-B Natriuret Pep Total Protein Albumin Arterial Blood Glucose Arterial Blood Ionized Calcium Urine pH Urine WBC (Auto) U Epithel Cells (Auto) Vancomycin Trough Phenytoin Crossmatch 11/07/20 11/07/20 11/07/20 03:33 04:44 04:44 WBC RBC Hgb Hct MCV MCH MCHC RDW 16.6 H Plt Count Lymph % (Auto) [place] % (Auto) 13.1 H Lymph # (Auto) [place] # (Auto) 1.3 H Baso # (Auto) Seg Neutrophils % Seg Neuts % (Manual) Lymphocytes % (Manual) Monocytes % (Manual) Nucleated RBC % Seg Neutrophils # Seg Neutrophils # Man Lymphocytes # (Manual) Monocytes # (Manual) PT INR APTT Fibrinogen D-Dimer ABG pH POC ABG pCO2 POC ABG pO2 ABG pO2 ABG HCO3 ABG Base Excess ABG Hemoglobin ABG Oxyhemoglobin ABG Sodium ABG Potassium ABG Chloride ABG Glucose VBG pH Oxyhemoglobin Carboxyhemoglobin Sodium Potassium Chloride Carbon Dioxide BUN Creatinine Glucose 103 H POC Glucose 109 H Random Insulin C-Peptide Lactic Acid Calcium Ionized Calcium Phosphorus 5.30 H Magnesium AST ALT Alkaline Phosphatase Lactate Dehydrogenase NT-Pro-B Natriuret Pep Total Protein Albumin Arterial Blood Glucose Arterial Blood Ionized Calcium Urine pH Urine WBC (Auto) U Epithel Cells (Auto) Vancomycin Trough Phenytoin Crossmatch 11/07/20 11/07/20 11/08/20 15:58 23:46 07:30 WBC RBC Hgb Hct MCV MCH MCHC RDW Plt Count Lymph % (Auto) [place] % (Auto) Lymph # (Auto) [place] # (Auto) Baso # (Auto) Seg Neutrophils % Seg Neuts % (Manual) Lymphocytes % (Manual) Monocytes % (Manual) Nucleated RBC % Seg Neutrophils # Seg Neutrophils # Man Lymphocytes # (Manual) Monocytes # (Manual) PT INR APTT Fibrinogen D-Dimer ABG pH POC ABG pCO2 POC ABG pO2 ABG pO2 ABG HCO3 ABG Base Excess ABG Hemoglobin ABG Oxyhemoglobin ABG Sodium ABG Potassium ABG Chloride ABG Glucose VBG pH Oxyhemoglobin Carboxyhemoglobin Sodium Potassium Chloride Carbon Dioxide BUN Creatinine Glucose POC Glucose 108 H 106 H 109 H Random Insulin C-Peptide Lactic Acid Calcium Ionized Calcium Phosphorus Magnesium AST ALT Alkaline Phosphatase Lactate Dehydrogenase NT-Pro-B Natriuret Pep Total Protein Albumin Arterial Blood Glucose Arterial Blood Ionized Calcium Urine pH Urine WBC (Auto) U Epithel Cells (Auto) Vancomycin Trough Phenytoin Crossmatch 11/08/20 11/08/20 11/09/20 11:48 23:32 17:10 WBC RBC Hgb Hct MCV MCH MCHC RDW Plt Count Lymph % (Auto) [place] % (Auto) Lymph # (Auto) [place] # (Auto) Baso # (Auto) Seg Neutrophils % Seg Neuts % (Manual) Lymphocytes % (Manual) Monocytes % (Manual) Nucleated RBC % Seg Neutrophils # Seg Neutrophils # Man Lymphocytes # (Manual) Monocytes # (Manual) PT INR APTT Fibrinogen D-Dimer ABG pH POC ABG pCO2 POC ABG pO2 ABG pO2 ABG HCO3 ABG Base Excess ABG Hemoglobin ABG Oxyhemoglobin ABG Sodium ABG Potassium ABG Chloride ABG Glucose VBG pH Oxyhemoglobin Carboxyhemoglobin Sodium Potassium Chloride Carbon Dioxide BUN Creatinine Glucose POC Glucose 110 H 116 H 112 H Random Insulin C-Peptide Lactic Acid Calcium Ionized Calcium Phosphorus Magnesium AST ALT Alkaline Phosphatase Lactate Dehydrogenase NT-Pro-B Natriuret Pep Total Protein Albumin Arterial Blood Glucose Arterial Blood Ionized Calcium Urine pH Urine WBC (Auto) U Epithel Cells (Auto) Vancomycin Trough Phenytoin Crossmatch 11/09/20 11/10/20 11/10/20 21:42 05:49 07:17 WBC RBC Hgb Hct MCV MCH MCHC RDW Plt Count Lymph % (Auto) [place] % (Auto) Lymph # (Auto) [place] # (Auto) Baso # (Auto) Seg Neutrophils % Seg Neuts % (Manual) Lymphocytes % (Manual) Monocytes % (Manual) Nucleated RBC % Seg Neutrophils # Seg Neutrophils # Man Lymphocytes # (Manual) Monocytes # (Manual) PT INR APTT Fibrinogen D-Dimer ABG pH POC ABG pCO2 POC ABG pO2 ABG pO2 ABG HCO3 ABG Base Excess ABG Hemoglobin ABG Oxyhemoglobin ABG Sodium ABG Potassium ABG Chloride ABG Glucose VBG pH Oxyhemoglobin Carboxyhemoglobin Sodium Potassium Chloride Carbon Dioxide BUN Creatinine Glucose POC Glucose 110 H 108 H 111 H Random Insulin C-Peptide Lactic Acid Calcium Ionized Calcium Phosphorus Magnesium AST ALT Alkaline Phosphatase Lactate Dehydrogenase NT-Pro-B Natriuret Pep Total Protein Albumin Arterial Blood Glucose Arterial Blood Ionized Calcium Urine pH Urine WBC (Auto) U Epithel Cells (Auto) Vancomycin Trough Phenytoin Crossmatch 11/10/20 11/11/20 11/11/20 20:36 04:58 11:56 WBC RBC Hgb Hct MCV MCH MCHC RDW Plt Count Lymph % (Auto) [place] % (Auto) Lymph # (Auto) [place] # (Auto) Baso # (Auto) Seg Neutrophils % Seg Neuts % (Manual) Lymphocytes % (Manual) Monocytes % (Manual) Nucleated RBC % Seg Neutrophils # Seg Neutrophils # Man Lymphocytes # (Manual) Monocytes # (Manual) PT INR APTT Fibrinogen D-Dimer ABG pH POC ABG pCO2 POC ABG pO2 ABG pO2 ABG HCO3 ABG Base Excess ABG Hemoglobin ABG Oxyhemoglobin ABG Sodium ABG Potassium ABG Chloride ABG Glucose VBG pH Oxyhemoglobin Carboxyhemoglobin Sodium Potassium Chloride Carbon Dioxide BUN Creatinine Glucose POC Glucose 111 H 109 H 109 H Random Insulin C-Peptide Lactic Acid Calcium Ionized Calcium Phosphorus Magnesium AST ALT Alkaline Phosphatase Lactate Dehydrogenase NT-Pro-B Natriuret Pep Total Protein Albumin Arterial Blood Glucose Arterial Blood Ionized Calcium Urine pH Urine WBC (Auto) U Epithel Cells (Auto) Vancomycin Trough Phenytoin Crossmatch 11/11/20 11/11/20 11/11/20 13:50 13:50 15:50 WBC RBC Hgb Hct MCV MCH MCHC RDW Plt Count Lymph % (Auto) [place] % (Auto) Lymph # (Auto) [place] # (Auto) Baso # (Auto) Seg Neutrophils % Seg Neuts % (Manual) Lymphocytes % (Manual) Monocytes % (Manual) Nucleated RBC % Seg Neutrophils # Seg Neutrophils # Man Lymphocytes # (Manual) Monocytes # (Manual) PT INR APTT Fibrinogen D-Dimer 1974.47 H ABG pH POC ABG pCO2 POC ABG pO2 ABG pO2 ABG HCO3 ABG Base Excess ABG Hemoglobin ABG Oxyhemoglobin ABG Sodium ABG Potassium ABG Chloride ABG Glucose VBG pH Oxyhemoglobin Carboxyhemoglobin Sodium Potassium Chloride Carbon Dioxide BUN Creatinine Glucose POC Glucose 107 H Random Insulin C-Peptide Lactic Acid Calcium Ionized Calcium Phosphorus Magnesium AST ALT Alkaline Phosphatase Lactate Dehydrogenase NT-Pro-B Natriuret Pep Total Protein Albumin Arterial Blood Glucose Arterial Blood Ionized Calcium Urine pH Urine WBC (Auto) > 182.0 H U Epithel Cells (Auto) Vancomycin Trough Phenytoin Crossmatch 11/11/20 11/12/20 11/12/20 23:17 11:33 22:20 WBC RBC Hgb Hct MCV MCH MCHC RDW Plt Count Lymph % (Auto) [place] % (Auto) Lymph # (Auto) [place] # (Auto) Baso # (Auto) Seg Neutrophils % Seg Neuts % (Manual) Lymphocytes % (Manual) Monocytes % (Manual) Nucleated RBC % Seg Neutrophils # Seg Neutrophils # Man Lymphocytes # (Manual) Monocytes # (Manual) PT INR APTT Fibrinogen D-Dimer ABG pH POC ABG pCO2 POC ABG pO2 ABG pO2 ABG HCO3 ABG Base Excess ABG Hemoglobin ABG Oxyhemoglobin ABG Sodium ABG Potassium ABG Chloride ABG Glucose VBG pH Oxyhemoglobin Carboxyhemoglobin Sodium Potassium Chloride Carbon Dioxide BUN Creatinine Glucose POC Glucose 119 H 111 H 107 H Random Insulin C-Peptide Lactic Acid Calcium Ionized Calcium Phosphorus Magnesium AST ALT Alkaline Phosphatase Lactate Dehydrogenase NT-Pro-B Natriuret Pep Total Protein Albumin Arterial Blood Glucose Arterial Blood Ionized Calcium Urine pH Urine WBC (Auto) U Epithel Cells (Auto) Vancomycin Trough Phenytoin Crossmatch 11/13/20 11/13/20 11/13/20 01:52 07:33 10:05 WBC RBC Hgb Hct MCV MCH MCHC RDW Plt Count Lymph % (Auto) [place] % (Auto) Lymph # (Auto) [place] # (Auto) Baso # (Auto) Seg Neutrophils % Seg Neuts % (Manual) Lymphocytes % (Manual) Monocytes % (Manual) Nucleated RBC % Seg Neutrophils # Seg Neutrophils # Man Lymphocytes # (Manual) Monocytes # (Manual) PT INR APTT Fibrinogen D-Dimer ABG pH POC ABG pCO2 POC ABG pO2 ABG pO2 ABG HCO3 ABG Base Excess ABG Hemoglobin ABG Oxyhemoglobin ABG Sodium ABG Potassium ABG Chloride ABG Glucose VBG pH Oxyhemoglobin Carboxyhemoglobin Sodium Potassium Chloride Carbon Dioxide BUN Creatinine Glucose 114 H POC Glucose 124 H 106 H Random Insulin C-Peptide Lactic Acid Calcium Ionized Calcium Phosphorus 4.60 H Magnesium AST ALT Alkaline Phosphatase Lactate Dehydrogenase NT-Pro-B Natriuret Pep Total Protein Albumin Arterial Blood Glucose Arterial Blood Ionized Calcium Urine pH Urine WBC (Auto) U Epithel Cells (Auto) Vancomycin Trough Phenytoin Crossmatch 11/13/20 11/13/20 11/14/20 11:50 17:20 05:26 WBC RBC Hgb Hct MCV MCH MCHC RDW Plt Count Lymph % (Auto) [place] % (Auto) Lymph # (Auto) [place] # (Auto) Baso # (Auto) Seg Neutrophils % Seg Neuts % (Manual) Lymphocytes % (Manual) Monocytes % (Manual) Nucleated RBC % Seg Neutrophils # Seg Neutrophils # Man Lymphocytes # (Manual) Monocytes # (Manual) PT INR APTT Fibrinogen D-Dimer ABG pH POC ABG pCO2 POC ABG pO2 ABG pO2 ABG HCO3 ABG Base Excess ABG Hemoglobin ABG Oxyhemoglobin ABG Sodium ABG Potassium ABG Chloride ABG Glucose VBG pH Oxyhemoglobin Carboxyhemoglobin Sodium Potassium Chloride Carbon Dioxide BUN Creatinine Glucose POC Glucose 113 H 110 H 110 H Random Insulin C-Peptide Lactic Acid Calcium Ionized Calcium Phosphorus Magnesium AST ALT Alkaline Phosphatase Lactate Dehydrogenase NT-Pro-B Natriuret Pep Total Protein Albumin Arterial Blood Glucose Arterial Blood Ionized Calcium Urine pH Urine WBC (Auto) U Epithel Cells (Auto) Vancomycin Trough Phenytoin Crossmatch 11/14/20 11/15/20 11/15/20 23:23 05:07 11:48 WBC RBC Hgb Hct MCV MCH MCHC RDW Plt Count Lymph % (Auto) [place] % (Auto) Lymph # (Auto) [place] # (Auto) Baso # (Auto) Seg Neutrophils % Seg Neuts % (Manual) Lymphocytes % (Manual) Monocytes % (Manual) Nucleated RBC % Seg Neutrophils # Seg Neutrophils # Man Lymphocytes # (Manual) Monocytes # (Manual) PT INR APTT Fibrinogen D-Dimer ABG pH POC ABG pCO2 POC ABG pO2 ABG pO2 ABG HCO3 ABG Base Excess ABG Hemoglobin ABG Oxyhemoglobin ABG Sodium ABG Potassium ABG Chloride ABG Glucose VBG pH Oxyhemoglobin Carboxyhemoglobin Sodium Potassium Chloride Carbon Dioxide BUN Creatinine Glucose POC Glucose 112 H 115 H 114 H Random Insulin C-Peptide Lactic Acid Calcium Ionized Calcium Phosphorus Magnesium AST ALT Alkaline Phosphatase Lactate Dehydrogenase NT-Pro-B Natriuret Pep Total Protein Albumin Arterial Blood Glucose Arterial Blood Ionized Calcium Urine pH Urine WBC (Auto) U Epithel Cells (Auto) Vancomycin Trough Phenytoin Crossmatch 11/16/20 11/17/20 11/18/20 05:06 00:17 05:04 WBC RBC Hgb Hct MCV MCH MCHC RDW Plt Count Lymph % (Auto) [place] % (Auto) Lymph # (Auto) [place] # (Auto) Baso # (Auto) Seg Neutrophils % Seg Neuts % (Manual) Lymphocytes % (Manual) Monocytes % (Manual) Nucleated RBC % Seg Neutrophils # Seg Neutrophils # Man Lymphocytes # (Manual) Monocytes # (Manual) PT INR APTT Fibrinogen D-Dimer ABG pH POC ABG pCO2 POC ABG pO2 ABG pO2 ABG HCO3 ABG Base Excess ABG Hemoglobin ABG Oxyhemoglobin ABG Sodium ABG Potassium ABG Chloride ABG Glucose VBG pH Oxyhemoglobin Carboxyhemoglobin Sodium Potassium Chloride Carbon Dioxide BUN Creatinine Glucose POC Glucose 110 H 115 H 111 H Random Insulin C-Peptide Lactic Acid Calcium Ionized Calcium Phosphorus Magnesium AST ALT Alkaline Phosphatase Lactate Dehydrogenase NT-Pro-B Natriuret Pep Total Protein Albumin Arterial Blood Glucose Arterial Blood Ionized Calcium Urine pH Urine WBC (Auto) U Epithel Cells (Auto) Vancomycin Trough Phenytoin Crossmatch 11/21/20 11/21/20 11/21/20 00:04 05:51 23:26 WBC RBC Hgb Hct MCV MCH MCHC RDW Plt Count Lymph % (Auto) [place] % (Auto) Lymph # (Auto) [place] # (Auto) Baso # (Auto) Seg Neutrophils % Seg Neuts % (Manual) Lymphocytes % (Manual) Monocytes % (Manual) Nucleated RBC % Seg Neutrophils # Seg Neutrophils # Man Lymphocytes # (Manual) Monocytes # (Manual) PT INR APTT Fibrinogen D-Dimer ABG pH POC ABG pCO2 POC ABG pO2 ABG pO2 ABG HCO3 ABG Base Excess ABG Hemoglobin ABG Oxyhemoglobin ABG Sodium ABG Potassium ABG Chloride ABG Glucose VBG pH Oxyhemoglobin Carboxyhemoglobin Sodium Potassium Chloride Carbon Dioxide BUN Creatinine Glucose POC Glucose 117 H 112 H 107 H Random Insulin C-Peptide Lactic Acid Calcium Ionized Calcium Phosphorus Magnesium AST ALT Alkaline Phosphatase Lactate Dehydrogenase NT-Pro-B Natriuret Pep Total Protein Albumin Arterial Blood Glucose Arterial Blood Ionized Calcium Urine pH Urine WBC (Auto) U Epithel Cells (Auto) Vancomycin Trough Phenytoin Crossmatch 11/22/20 11/22/20 11/22/20 05:24 11:59 23:19 WBC RBC Hgb Hct MCV MCH MCHC RDW Plt Count Lymph % (Auto) [place] % (Auto) Lymph # (Auto) [place] # (Auto) Baso # (Auto) Seg Neutrophils % Seg Neuts % (Manual) Lymphocytes % (Manual) Monocytes % (Manual) Nucleated RBC % Seg Neutrophils # Seg Neutrophils # Man Lymphocytes # (Manual) Monocytes # (Manual) PT INR APTT Fibrinogen D-Dimer ABG pH POC ABG pCO2 POC ABG pO2 ABG pO2 ABG HCO3 ABG Base Excess ABG Hemoglobin ABG Oxyhemoglobin ABG Sodium ABG Potassium ABG Chloride ABG Glucose VBG pH Oxyhemoglobin Carboxyhemoglobin Sodium Potassium Chloride Carbon Dioxide BUN Creatinine Glucose POC Glucose 120 H 111 H 112 H Random Insulin C-Peptide Lactic Acid Calcium Ionized Calcium Phosphorus Magnesium AST ALT Alkaline Phosphatase Lactate Dehydrogenase NT-Pro-B Natriuret Pep Total Protein Albumin Arterial Blood Glucose Arterial Blood Ionized Calcium Urine pH Urine WBC (Auto) U Epithel Cells (Auto) Vancomycin Trough Phenytoin Crossmatch 11/23/20 11/24/20 11/24/20 23:42 05:33 12:04 WBC RBC Hgb Hct MCV MCH MCHC RDW Plt Count Lymph % (Auto) [place] % (Auto) Lymph # (Auto) [place] # (Auto) Baso # (Auto) Seg Neutrophils % Seg Neuts % (Manual) Lymphocytes % (Manual) Monocytes % (Manual) Nucleated RBC % Seg Neutrophils # Seg Neutrophils # Man Lymphocytes # (Manual) Monocytes # (Manual) PT INR APTT Fibrinogen D-Dimer ABG pH POC ABG pCO2 POC ABG pO2 ABG pO2 ABG HCO3 ABG Base Excess ABG Hemoglobin ABG Oxyhemoglobin ABG Sodium ABG Potassium ABG Chloride ABG Glucose VBG pH Oxyhemoglobin Carboxyhemoglobin Sodium Potassium Chloride Carbon Dioxide BUN Creatinine Glucose POC Glucose 111 H 108 H 118 H Random Insulin C-Peptide Lactic Acid Calcium Ionized Calcium Phosphorus Magnesium AST ALT Alkaline Phosphatase Lactate Dehydrogenase NT-Pro-B Natriuret Pep Total Protein Albumin Arterial Blood Glucose Arterial Blood Ionized Calcium Urine pH Urine WBC (Auto) U Epithel Cells (Auto) Vancomycin Trough Phenytoin Crossmatch 02/10/21 02/11/21 02/11/21 23:11 04:37 04:37 WBC RBC Hgb Hct MCV MCH MCHC RDW 15.4 H Plt Count Lymph % (Auto) [place] % (Auto) 10.1 H Lymph # (Auto) [place] # (Auto) 1.0 H Baso # (Auto) Seg Neutrophils % Seg Neuts % (Manual) Lymphocytes % (Manual) Monocytes % (Manual) Nucleated RBC % Seg Neutrophils # Seg Neutrophils # Man Lymphocytes # (Manual) Monocytes # (Manual) PT INR APTT Fibrinogen D-Dimer ABG pH POC ABG pCO2 POC ABG pO2 ABG pO2 ABG HCO3 ABG Base Excess ABG Hemoglobin ABG Oxyhemoglobin ABG Sodium ABG Potassium ABG Chloride ABG Glucose VBG pH Oxyhemoglobin Carboxyhemoglobin Sodium Potassium Chloride Carbon Dioxide BUN Creatinine Glucose 109 H POC Glucose 115 H Random Insulin C-Peptide Lactic Acid Calcium Ionized Calcium Phosphorus Magnesium AST 51 H ALT Alkaline Phosphatase Lactate Dehydrogenase NT-Pro-B Natriuret Pep Total Protein Albumin Arterial Blood Glucose Arterial Blood Ionized Calcium Urine pH Urine WBC (Auto) U Epithel Cells (Auto) Vancomycin Trough Phenytoin Crossmatch 11/26/20 11/27/20 11/28/20 23:27 23:38 05:25 WBC RBC Hgb Hct MCV MCH MCHC RDW Plt Count Lymph % (Auto) [place] % (Auto) Lymph # (Auto) [place] # (Auto) Baso # (Auto) Seg Neutrophils % Seg Neuts % (Manual) Lymphocytes % (Manual) Monocytes % (Manual) Nucleated RBC % Seg Neutrophils # Seg Neutrophils # Man Lymphocytes # (Manual) Monocytes # (Manual) PT INR APTT Fibrinogen D-Dimer ABG pH POC ABG pCO2 POC ABG pO2 ABG pO2 ABG HCO3 ABG Base Excess ABG Hemoglobin ABG Oxyhemoglobin ABG Sodium ABG Potassium ABG Chloride ABG Glucose VBG pH Oxyhemoglobin Carboxyhemoglobin Sodium Potassium Chloride Carbon Dioxide BUN Creatinine Glucose POC Glucose 115 H 111 H 107 H Random Insulin C-Peptide Lactic Acid Calcium Ionized Calcium Phosphorus Magnesium AST ALT Alkaline Phosphatase Lactate Dehydrogenase NT-Pro-B Natriuret Pep Total Protein Albumin Arterial Blood Glucose Arterial Blood Ionized Calcium Urine pH Urine WBC (Auto) U Epithel Cells (Auto) Vancomycin Trough Phenytoin Crossmatch 11/28/20 11/29/20 11/29/20 11:45 23:38 23:46 WBC RBC Hgb Hct MCV MCH MCHC RDW Plt Count Lymph % (Auto) [place] % (Auto) Lymph # (Auto) [place] # (Auto) Baso # (Auto) Seg Neutrophils % Seg Neuts % (Manual) Lymphocytes % (Manual) Monocytes % (Manual) Nucleated RBC % Seg Neutrophils # Seg Neutrophils # Man Lymphocytes # (Manual) Monocytes # (Manual) PT INR APTT Fibrinogen D-Dimer ABG pH POC ABG pCO2 POC ABG pO2 ABG pO2 ABG HCO3 ABG Base Excess ABG Hemoglobin ABG Oxyhemoglobin ABG Sodium ABG Potassium ABG Chloride ABG Glucose VBG pH Oxyhemoglobin Carboxyhemoglobin Sodium Potassium Chloride Carbon Dioxide BUN Creatinine Glucose POC Glucose 112 H 109 H 117 H Random Insulin C-Peptide Lactic Acid Calcium Ionized Calcium Phosphorus Magnesium AST ALT Alkaline Phosphatase Lactate Dehydrogenase NT-Pro-B Natriuret Pep Total Protein Albumin Arterial Blood Glucose Arterial Blood Ionized Calcium Urine pH Urine WBC (Auto) U Epithel Cells (Auto) Vancomycin Trough Phenytoin Crossmatch 12/01/20 12/01/20 12/02/20 05:52 16:54 05:11 WBC RBC Hgb Hct MCV MCH MCHC RDW Plt Count Lymph % (Auto) [place] % (Auto) Lymph # (Auto) [place] # (Auto) Baso # (Auto) Seg Neutrophils % Seg Neuts % (Manual) Lymphocytes % (Manual) Monocytes % (Manual) Nucleated RBC % Seg Neutrophils # Seg Neutrophils # Man Lymphocytes # (Manual) Monocytes # (Manual) PT INR APTT Fibrinogen D-Dimer ABG pH POC ABG pCO2 POC ABG pO2 ABG pO2 ABG HCO3 ABG Base Excess ABG Hemoglobin ABG Oxyhemoglobin ABG Sodium ABG Potassium ABG Chloride ABG Glucose VBG pH Oxyhemoglobin Carboxyhemoglobin Sodium Potassium Chloride Carbon Dioxide BUN Creatinine Glucose POC Glucose 106 H 108 H 110 H Random Insulin C-Peptide Lactic Acid Calcium Ionized Calcium Phosphorus Magnesium AST ALT Alkaline Phosphatase Lactate Dehydrogenase NT-Pro-B Natriuret Pep Total Protein Albumin Arterial Blood Glucose Arterial Blood Ionized Calcium Urine pH Urine WBC (Auto) U Epithel Cells (Auto) Vancomycin Trough Phenytoin Crossmatch 12/02/20 12/02/20 12/03/20 18:01 23:49 05:36 WBC RBC Hgb Hct MCV MCH MCHC RDW Plt Count Lymph % (Auto) [place] % (Auto) Lymph # (Auto) [place] # (Auto) Baso # (Auto) Seg Neutrophils % Seg Neuts % (Manual) Lymphocytes % (Manual) Monocytes % (Manual) Nucleated RBC % Seg Neutrophils # Seg Neutrophils # Man Lymphocytes # (Manual) Monocytes # (Manual) PT INR APTT Fibrinogen D-Dimer ABG pH POC ABG pCO2 POC ABG pO2 ABG pO2 ABG HCO3 ABG Base Excess ABG Hemoglobin ABG Oxyhemoglobin ABG Sodium ABG Potassium ABG Chloride ABG Glucose VBG pH Oxyhemoglobin Carboxyhemoglobin Sodium Potassium Chloride Carbon Dioxide BUN Creatinine Glucose POC Glucose 120 H 111 H 109 H Random Insulin C-Peptide Lactic Acid Calcium Ionized Calcium Phosphorus Magnesium AST ALT Alkaline Phosphatase Lactate Dehydrogenase NT-Pro-B Natriuret Pep Total Protein Albumin Arterial Blood Glucose Arterial Blood Ionized Calcium Urine pH Urine WBC (Auto) U Epithel Cells (Auto) Vancomycin Trough Phenytoin Crossmatch 12/03/20 12/09/20 12/10/20 10:50 05:32 09:25 WBC RBC Hgb Hct MCV MCH MCHC RDW Plt Count Lymph % (Auto) [place] % (Auto) Lymph # (Auto) [place] # (Auto) Baso # (Auto) Seg Neutrophils % Seg Neuts % (Manual) Lymphocytes % (Manual) Monocytes % (Manual) Nucleated RBC % Seg Neutrophils # Seg Neutrophils # Man Lymphocytes # (Manual) Monocytes # (Manual) PT INR APTT Fibrinogen D-Dimer ABG pH POC ABG pCO2 POC ABG pO2 ABG pO2 ABG HCO3 ABG Base Excess ABG Hemoglobin ABG Oxyhemoglobin ABG Sodium ABG Potassium ABG Chloride ABG Glucose VBG pH Oxyhemoglobin Carboxyhemoglobin Sodium Potassium Chloride Carbon Dioxide BUN Creatinine Glucose POC Glucose 110 H 114 H Random Insulin C-Peptide Lactic Acid Calcium Ionized Calcium Phosphorus Magnesium AST ALT Alkaline Phosphatase Lactate Dehydrogenase NT-Pro-B Natriuret Pep Total Protein Albumin Arterial Blood Glucose Arterial Blood Ionized Calcium Urine pH Urine WBC (Auto) 50.0 H U Epithel Cells (Auto) Vancomycin Trough Phenytoin Crossmatch 12/10/20 12/10/20 12/13/20 09:37 09:37 05:12 WBC 12.5 H RBC Hgb Hct MCV MCH 26 L MCHC RDW Plt Count Lymph % (Auto) [place] % (Auto) Lymph # (Auto) [place] # (Auto) Baso # (Auto) Seg Neutrophils % Seg Neuts % (Manual) 81.0 H Lymphocytes % (Manual) Monocytes % (Manual) Nucleated RBC % Seg Neutrophils # Seg Neutrophils # Man 10.1 H Lymphocytes # (Manual) Monocytes # (Manual) PT INR APTT Fibrinogen D-Dimer ABG pH POC ABG pCO2 POC ABG pO2 ABG pO2 ABG HCO3 ABG Base Excess ABG Hemoglobin ABG Oxyhemoglobin ABG Sodium ABG Potassium ABG Chloride ABG Glucose VBG pH Oxyhemoglobin Carboxyhemoglobin Sodium 149 H Potassium Chloride 109.9 H Carbon Dioxide BUN 19 H Creatinine Glucose 105 H POC Glucose 112 H Random Insulin C-Peptide Lactic Acid Calcium Ionized Calcium Phosphorus Magnesium AST ALT Alkaline Phosphatase Lactate Dehydrogenase NT-Pro-B Natriuret Pep Total Protein Albumin Arterial Blood Glucose Arterial Blood Ionized Calcium Urine pH Urine WBC (Auto) U Epithel Cells (Auto) Vancomycin Trough Phenytoin Crossmatch 12/14/20 12/14/20 12/14/20 05:02 09:06 10:32 WBC RBC 5.30 H Hgb Hct 43.0 H MCV MCH 25 L MCHC RDW Plt Count Lymph % (Auto) [place] % (Auto) 7.8 H Lymph # (Auto) [place] # (Auto) Baso # (Auto) Seg Neutrophils % Seg Neuts % (Manual) Lymphocytes % (Manual) Monocytes % (Manual) Nucleated RBC % Seg Neutrophils # Seg Neutrophils # Man Lymphocytes # (Manual) Monocytes # (Manual) PT INR APTT Fibrinogen D-Dimer ABG pH POC ABG pCO2 POC ABG pO2 ABG pO2 ABG HCO3 ABG Base Excess ABG Hemoglobin ABG Oxyhemoglobin ABG Sodium ABG Potassium ABG Chloride ABG Glucose VBG pH Oxyhemoglobin Carboxyhemoglobin Sodium 155 H Potassium Chloride 117.2 H Carbon Dioxide BUN 21 H Creatinine Glucose 104 H POC Glucose 109 H Random Insulin C-Peptide Lactic Acid Calcium Ionized Calcium Phosphorus Magnesium AST 63 H ALT Alkaline Phosphatase Lactate Dehydrogenase NT-Pro-B Natriuret Pep Total Protein 8.3 H Albumin 3.8 L Arterial Blood Glucose Arterial Blood Ionized Calcium Urine pH Urine WBC (Auto) U Epithel Cells (Auto) Vancomycin Trough Phenytoin Crossmatch 12/15/20 12/15/20 12/16/20 05:40 11:56 05:42 WBC RBC Hgb Hct MCV MCH MCHC RDW Plt Count Lymph % (Auto) [place] % (Auto) Lymph # (Auto) [place] # (Auto) Baso # (Auto) Seg Neutrophils % Seg Neuts % (Manual) Lymphocytes % (Manual) Monocytes % (Manual) Nucleated RBC % Seg Neutrophils # Seg Neutrophils # Man Lymphocytes # (Manual) Monocytes # (Manual) PT INR APTT Fibrinogen D-Dimer ABG pH POC ABG pCO2 POC ABG pO2 ABG pO2 ABG HCO3 ABG Base Excess ABG Hemoglobin ABG Oxyhemoglobin ABG Sodium ABG Potassium ABG Chloride ABG Glucose VBG pH Oxyhemoglobin Carboxyhemoglobin Sodium Potassium Chloride Carbon Dioxide BUN Creatinine Glucose POC Glucose 125 H 107 H 108 H Random Insulin C-Peptide Lactic Acid Calcium Ionized Calcium Phosphorus Magnesium AST ALT Alkaline Phosphatase Lactate Dehydrogenase NT-Pro-B Natriuret Pep Total Protein Albumin Arterial Blood Glucose Arterial Blood Ionized Calcium Urine pH Urine WBC (Auto) U Epithel Cells (Auto) Vancomycin Trough Phenytoin Crossmatch 12/16/20 12/16/20 12/17/20 08:00 23:26 05:49 WBC RBC Hgb Hct MCV MCH MCHC RDW Plt Count Lymph % (Auto) [place] % (Auto) Lymph # (Auto) [place] # (Auto) Baso # (Auto) Seg Neutrophils % Seg Neuts % (Manual) Lymphocytes % (Manual) Monocytes % (Manual) Nucleated RBC % Seg Neutrophils # Seg Neutrophils # Man Lymphocytes # (Manual) Monocytes # (Manual) PT INR APTT Fibrinogen D-Dimer ABG pH POC ABG pCO2 POC ABG pO2 ABG pO2 ABG HCO3 ABG Base Excess ABG Hemoglobin ABG Oxyhemoglobin ABG Sodium ABG Potassium ABG Chloride ABG Glucose VBG pH Oxyhemoglobin Carboxyhemoglobin Sodium 156 H Potassium Chloride 117.9 H Carbon Dioxide BUN 24 H Creatinine Glucose 109 H POC Glucose 111 H 109 H Random Insulin C-Peptide Lactic Acid Calcium Ionized Calcium Phosphorus Magnesium AST ALT Alkaline Phosphatase Lactate Dehydrogenase NT-Pro-B Natriuret Pep Total Protein Albumin Arterial Blood Glucose Arterial Blood Ionized Calcium Urine pH Urine WBC (Auto) U Epithel Cells (Auto) Vancomycin Trough Phenytoin Crossmatch 12/17/20 12/17/20 12/18/20 11:41 23:27 04:57 WBC RBC 5.16 H Hgb Hct MCV MCH 25 L MCHC RDW Plt Count Lymph % (Auto) [place] % (Auto) Lymph # (Auto) [place] # (Auto) Baso # (Auto) Seg Neutrophils % Seg Neuts % (Manual) Lymphocytes % (Manual) Monocytes % (Manual) Nucleated RBC % Seg Neutrophils # Seg Neutrophils # Man Lymphocytes # (Manual) Monocytes # (Manual) PT INR APTT Fibrinogen D-Dimer ABG pH POC ABG pCO2 POC ABG pO2 ABG pO2 ABG HCO3 ABG Base Excess ABG Hemoglobin ABG Oxyhemoglobin ABG Sodium ABG Potassium ABG Chloride ABG Glucose VBG pH Oxyhemoglobin Carboxyhemoglobin Sodium Potassium Chloride Carbon Dioxide BUN Creatinine Glucose POC Glucose 108 H 108 H Random Insulin C-Peptide Lactic Acid Calcium Ionized Calcium Phosphorus Magnesium AST ALT Alkaline Phosphatase Lactate Dehydrogenase NT-Pro-B Natriuret Pep Total Protein Albumin Arterial Blood Glucose Arterial Blood Ionized Calcium Urine pH Urine WBC (Auto) U Epithel Cells (Auto) Vancomycin Trough Phenytoin Crossmatch 12/18/20 12/18/20 12/19/20 04:57 11:22 05:21 WBC RBC Hgb Hct MCV MCH MCHC RDW Plt Count Lymph % (Auto) [place] % (Auto) Lymph # (Auto) [place] # (Auto) Baso # (Auto) Seg Neutrophils % Seg Neuts % (Manual) Lymphocytes % (Manual) Monocytes % (Manual) Nucleated RBC % Seg Neutrophils # Seg Neutrophils # Man Lymphocytes # (Manual) Monocytes # (Manual) PT INR APTT Fibrinogen D-Dimer ABG pH POC ABG pCO2 POC ABG pO2 ABG pO2 ABG HCO3 ABG Base Excess ABG Hemoglobin ABG Oxyhemoglobin ABG Sodium ABG Potassium ABG Chloride ABG Glucose VBG pH Oxyhemoglobin Carboxyhemoglobin Sodium 150 H Potassium Chloride 110.8 H Carbon Dioxide BUN 20 H Creatinine Glucose POC Glucose 107 H 108 H Random Insulin C-Peptide Lactic Acid Calcium Ionized Calcium Phosphorus Magnesium AST ALT Alkaline Phosphatase Lactate Dehydrogenase NT-Pro-B Natriuret Pep Total Protein Albumin Arterial Blood Glucose Arterial Blood Ionized Calcium Urine pH Urine WBC (Auto) U Epithel Cells (Auto) Vancomycin Trough Phenytoin Crossmatch 12/19/20 12/20/20 12/22/20 23:28 23:54 11:03 WBC RBC Hgb Hct MCV MCH MCHC RDW Plt Count Lymph % (Auto) [place] % (Auto) Lymph # (Auto) [place] # (Auto) Baso # (Auto) Seg Neutrophils % Seg Neuts % (Manual) Lymphocytes % (Manual) Monocytes % (Manual) Nucleated RBC % Seg Neutrophils # Seg Neutrophils # Man Lymphocytes # (Manual) Monocytes # (Manual) PT INR APTT Fibrinogen D-Dimer ABG pH POC ABG pCO2 POC ABG pO2 ABG pO2 ABG HCO3 ABG Base Excess ABG Hemoglobin ABG Oxyhemoglobin ABG Sodium ABG Potassium ABG Chloride ABG Glucose VBG pH Oxyhemoglobin Carboxyhemoglobin Sodium Potassium Chloride Carbon Dioxide BUN Creatinine 0.5 L Glucose 110 H POC Glucose 128 H 108 H Random Insulin C-Peptide Lactic Acid Calcium Ionized Calcium Phosphorus Magnesium AST 45 H ALT Alkaline Phosphatase Lactate Dehydrogenase NT-Pro-B Natriuret Pep Total Protein Albumin 3.8 L Arterial Blood Glucose Arterial Blood Ionized Calcium Urine pH Urine WBC (Auto) U Epithel Cells (Auto) Vancomycin Trough Phenytoin Crossmatch 12/23/20 12/23/20 12/25/20 16:50 23:30 00:34 WBC RBC Hgb Hct MCV MCH MCHC RDW Plt Count Lymph % (Auto) [place] % (Auto) Lymph # (Auto) [place] # (Auto) Baso # (Auto) Seg Neutrophils % Seg Neuts % (Manual) Lymphocytes % (Manual) Monocytes % (Manual) Nucleated RBC % Seg Neutrophils # Seg Neutrophils # Man Lymphocytes # (Manual) Monocytes # (Manual) PT INR APTT Fibrinogen D-Dimer ABG pH POC ABG pCO2 POC ABG pO2 ABG pO2 ABG HCO3 ABG Base Excess ABG Hemoglobin ABG Oxyhemoglobin ABG Sodium ABG Potassium ABG Chloride ABG Glucose VBG pH Oxyhemoglobin Carboxyhemoglobin Sodium Potassium Chloride Carbon Dioxide BUN Creatinine Glucose POC Glucose 115 H 111 H 106 H Random Insulin C-Peptide Lactic Acid Calcium Ionized Calcium Phosphorus Magnesium AST ALT Alkaline Phosphatase Lactate Dehydrogenase NT-Pro-B Natriuret Pep Total Protein Albumin Arterial Blood Glucose Arterial Blood Ionized Calcium Urine pH Urine WBC (Auto) U Epithel Cells (Auto) Vancomycin Trough Phenytoin Crossmatch 12/26/20 12/26/20 12/26/20 06:14 11:49 23:00 WBC RBC Hgb Hct MCV MCH MCHC RDW Plt Count Lymph % (Auto) [place] % (Auto) Lymph # (Auto) [place] # (Auto) Baso # (Auto) Seg Neutrophils % Seg Neuts % (Manual) Lymphocytes % (Manual) Monocytes % (Manual) Nucleated RBC % Seg Neutrophils # Seg Neutrophils # Man Lymphocytes # (Manual) Monocytes # (Manual) PT INR APTT Fibrinogen D-Dimer ABG pH POC ABG pCO2 POC ABG pO2 ABG pO2 ABG HCO3 ABG Base Excess ABG Hemoglobin ABG Oxyhemoglobin ABG Sodium ABG Potassium ABG Chloride ABG Glucose VBG pH Oxyhemoglobin Carboxyhemoglobin Sodium Potassium Chloride Carbon Dioxide BUN Creatinine Glucose POC Glucose 107 H 111 H 107 H Random Insulin C-Peptide Lactic Acid Calcium Ionized Calcium Phosphorus Magnesium AST ALT Alkaline Phosphatase Lactate Dehydrogenase NT-Pro-B Natriuret Pep Total Protein Albumin Arterial Blood Glucose Arterial Blood Ionized Calcium Urine pH Urine WBC (Auto) U Epithel Cells (Auto) Vancomycin Trough Phenytoin Crossmatch 12/27/20 12/30/20 01/01/21 22:25 06:48 11:44 WBC RBC Hgb Hct MCV MCH MCHC RDW Plt Count Lymph % (Auto) [place] % (Auto) Lymph # (Auto) [place] # (Auto) Baso # (Auto) Seg Neutrophils % Seg Neuts % (Manual) Lymphocytes % (Manual) Monocytes % (Manual) Nucleated RBC % Seg Neutrophils # Seg Neutrophils # Man Lymphocytes # (Manual) Monocytes # (Manual) PT INR APTT Fibrinogen D-Dimer ABG pH POC ABG pCO2 POC ABG pO2 ABG pO2 ABG HCO3 ABG Base Excess ABG Hemoglobin ABG Oxyhemoglobin ABG Sodium ABG Potassium ABG Chloride ABG Glucose VBG pH Oxyhemoglobin Carboxyhemoglobin Sodium Potassium Chloride Carbon Dioxide BUN Creatinine Glucose POC Glucose 106 H 107 H Random Insulin C-Peptide Lactic Acid Calcium Ionized Calcium Phosphorus Magnesium AST ALT Alkaline Phosphatase Lactate Dehydrogenase NT-Pro-B Natriuret Pep Total Protein Albumin Arterial Blood Glucose Arterial Blood Ionized Calcium Urine pH Urine WBC (Auto) U Epithel Cells (Auto) 16.0 H Vancomycin Trough Phenytoin Crossmatch 01/01/21 01/02/21 01/02/21 16:21 00:32 06:47 WBC RBC Hgb Hct MCV MCH MCHC RDW Plt Count Lymph % (Auto) [place] % (Auto) Lymph # (Auto) [place] # (Auto) Baso # (Auto) Seg Neutrophils % Seg Neuts % (Manual) Lymphocytes % (Manual) Monocytes % (Manual) Nucleated RBC % Seg Neutrophils # Seg Neutrophils # Man Lymphocytes # (Manual) Monocytes # (Manual) PT INR APTT Fibrinogen D-Dimer ABG pH POC ABG pCO2 POC ABG pO2 ABG pO2 ABG HCO3 ABG Base Excess ABG Hemoglobin ABG Oxyhemoglobin ABG Sodium ABG Potassium ABG Chloride ABG Glucose VBG pH Oxyhemoglobin Carboxyhemoglobin Sodium 152 H Potassium Chloride 117.8 H Carbon Dioxide 20 L BUN 21 H Creatinine Glucose 125 H POC Glucose 106 H 113 H Random Insulin C-Peptide Lactic Acid Calcium Ionized Calcium Phosphorus Magnesium AST ALT Alkaline Phosphatase Lactate Dehydrogenase NT-Pro-B Natriuret Pep Total Protein Albumin Arterial Blood Glucose Arterial Blood Ionized Calcium Urine pH Urine WBC (Auto) U Epithel Cells (Auto) Vancomycin Trough Phenytoin Crossmatch 01/02/21 01/02/21 01/02/21 06:47 12:15 23:44 WBC RBC 5.61 H Hgb Hct 43.8 H MCV 78 L MCH 25 L MCHC RDW Plt Count Lymph % (Auto) [place] % (Auto) 9.5 H Lymph # (Auto) [place] # (Auto) 0.9 H Baso # (Auto) Seg Neutrophils % Seg Neuts % (Manual) Lymphocytes % (Manual) Monocytes % (Manual) Nucleated RBC % Seg Neutrophils # Seg Neutrophils # Man Lymphocytes # (Manual) Monocytes # (Manual) PT INR APTT Fibrinogen D-Dimer ABG pH POC ABG pCO2 POC ABG pO2 ABG pO2 ABG HCO3 ABG Base Excess ABG Hemoglobin ABG Oxyhemoglobin ABG Sodium ABG Potassium ABG Chloride ABG Glucose VBG pH Oxyhemoglobin Carboxyhemoglobin Sodium Potassium Chloride Carbon Dioxide BUN Creatinine Glucose POC Glucose 111 H 120 H Random Insulin C-Peptide Lactic Acid Calcium Ionized Calcium Phosphorus Magnesium AST ALT Alkaline Phosphatase Lactate Dehydrogenase NT-Pro-B Natriuret Pep Total Protein Albumin Arterial Blood Glucose Arterial Blood Ionized Calcium Urine pH Urine WBC (Auto) U Epithel Cells (Auto) Vancomycin Trough Phenytoin Crossmatch 01/03/21 01/03/21 01/04/21 05:04 06:18 05:56 WBC RBC Hgb Hct MCV MCH MCHC RDW Plt Count Lymph % (Auto) [place] % (Auto) Lymph # (Auto) [place] # (Auto) Baso # (Auto) Seg Neutrophils % Seg Neuts % (Manual) Lymphocytes % (Manual) Monocytes % (Manual) Nucleated RBC % Seg Neutrophils # Seg Neutrophils # Man Lymphocytes # (Manual) Monocytes # (Manual) PT INR APTT Fibrinogen D-Dimer ABG pH POC ABG pCO2 POC ABG pO2 ABG pO2 ABG HCO3 ABG Base Excess ABG Hemoglobin ABG Oxyhemoglobin ABG Sodium ABG Potassium ABG Chloride ABG Glucose VBG pH Oxyhemoglobin Carboxyhemoglobin Sodium 153 H Potassium Chloride 119.1 H 109.8 H Carbon Dioxide 20 L BUN 18 H Creatinine 0.5 L Glucose 110 H POC Glucose 113 H Random Insulin C-Peptide Lactic Acid Calcium Ionized Calcium Phosphorus Magnesium AST ALT Alkaline Phosphatase Lactate Dehydrogenase NT-Pro-B Natriuret Pep Total Protein Albumin Arterial Blood Glucose Arterial Blood Ionized Calcium Urine pH Urine WBC (Auto) U Epithel Cells (Auto) Vancomycin Trough Phenytoin Crossmatch 01/04/21 01/04/21 01/06/21 06:11 11:52 05:37 WBC RBC Hgb Hct MCV MCH MCHC RDW Plt Count Lymph % (Auto) [place] % (Auto) Lymph # (Auto) [place] # (Auto) Baso # (Auto) Seg Neutrophils % Seg Neuts % (Manual) Lymphocytes % (Manual) Monocytes % (Manual) Nucleated RBC % Seg Neutrophils # Seg Neutrophils # Man Lymphocytes # (Manual) Monocytes # (Manual) PT INR APTT Fibrinogen D-Dimer ABG pH POC ABG pCO2 POC ABG pO2 ABG pO2 ABG HCO3 ABG Base Excess ABG Hemoglobin ABG Oxyhemoglobin ABG Sodium ABG Potassium ABG Chloride ABG Glucose VBG pH Oxyhemoglobin Carboxyhemoglobin Sodium Potassium Chloride Carbon Dioxide BUN Creatinine Glucose POC Glucose 106 H 106 H 106 H Random Insulin C-Peptide Lactic Acid Calcium Ionized Calcium Phosphorus Magnesium AST ALT Alkaline Phosphatase Lactate Dehydrogenase NT-Pro-B Natriuret Pep Total Protein Albumin Arterial Blood Glucose Arterial Blood Ionized Calcium Urine pH Urine WBC (Auto) U Epithel Cells (Auto) Vancomycin Trough Phenytoin Crossmatch 01/07/21 01/08/21 01/09/21 06:32 06:02 04:27 WBC RBC 5.22 H Hgb Hct MCV 76 L MCH 25 L MCHC RDW Plt Count Lymph % (Auto) [place] % (Auto) 9.7 H Lymph # (Auto) [place] # (Auto) Baso # (Auto) Seg Neutrophils % Seg Neuts % (Manual) Lymphocytes % (Manual) Monocytes % (Manual) Nucleated RBC % Seg Neutrophils # Seg Neutrophils # Man Lymphocytes # (Manual) Monocytes # (Manual) PT INR APTT Fibrinogen D-Dimer ABG pH POC ABG pCO2 POC ABG pO2 ABG pO2 ABG HCO3 ABG Base Excess ABG Hemoglobin ABG Oxyhemoglobin ABG Sodium ABG Potassium ABG Chloride ABG Glucose VBG pH Oxyhemoglobin Carboxyhemoglobin Sodium Potassium Chloride Carbon Dioxide BUN Creatinine Glucose POC Glucose 115 H 129 H Random Insulin C-Peptide Lactic Acid Calcium Ionized Calcium Phosphorus Magnesium AST ALT Alkaline Phosphatase Lactate Dehydrogenase NT-Pro-B Natriuret Pep Total Protein Albumin Arterial Blood Glucose Arterial Blood Ionized Calcium Urine pH Urine WBC (Auto) U Epithel Cells (Auto) Vancomycin Trough Phenytoin Crossmatch 01/09/21 01/09/21 01/10/21 04:27 16:14 12:41 WBC RBC Hgb Hct MCV MCH MCHC RDW Plt Count Lymph % (Auto) [place] % (Auto) Lymph # (Auto) [place] # (Auto) Baso # (Auto) Seg Neutrophils % Seg Neuts % (Manual) Lymphocytes % (Manual) Monocytes % (Manual) Nucleated RBC % Seg Neutrophils # Seg Neutrophils # Man Lymphocytes # (Manual) Monocytes # (Manual) PT INR APTT Fibrinogen D-Dimer ABG pH POC ABG pCO2 POC ABG pO2 ABG pO2 ABG HCO3 ABG Base Excess ABG Hemoglobin ABG Oxyhemoglobin ABG Sodium ABG Potassium ABG Chloride ABG Glucose VBG pH Oxyhemoglobin Carboxyhemoglobin Sodium Potassium Chloride Carbon Dioxide BUN Creatinine 0.5 L Glucose POC Glucose 111 H 115 H Random Insulin C-Peptide Lactic Acid Calcium Ionized Calcium Phosphorus Magnesium AST ALT Alkaline Phosphatase Lactate Dehydrogenase NT-Pro-B Natriuret Pep Total Protein Albumin Arterial Blood Glucose Arterial Blood Ionized Calcium Urine pH Urine WBC (Auto) U Epithel Cells (Auto) Vancomycin Trough Phenytoin Crossmatch 01/13/21 01/17/21 01/17/21 05:48 07:40 07:40 WBC RBC 5.23 H Hgb Hct MCV 75 L MCH 24 L MCHC RDW Plt Count Lymph % (Auto) [place] % (Auto) 8.2 H Lymph # (Auto) [place] # (Auto) Baso # (Auto) Seg Neutrophils % Seg Neuts % (Manual) Lymphocytes % (Manual) Monocytes % (Manual) Nucleated RBC % Seg Neutrophils # Seg Neutrophils # Man Lymphocytes # (Manual) Monocytes # (Manual) PT INR APTT Fibrinogen D-Dimer ABG pH POC ABG pCO2 POC ABG pO2 ABG pO2 ABG HCO3 ABG Base Excess ABG Hemoglobin ABG Oxyhemoglobin ABG Sodium ABG Potassium ABG Chloride ABG Glucose VBG pH Oxyhemoglobin Carboxyhemoglobin Sodium 135 L Potassium Chloride Carbon Dioxide BUN Creatinine Glucose POC Glucose 110 H Random Insulin C-Peptide Lactic Acid Calcium Ionized Calcium Phosphorus Magnesium AST ALT Alkaline Phosphatase Lactate Dehydrogenase NT-Pro-B Natriuret Pep Total Protein Albumin Arterial Blood Glucose Arterial Blood Ionized Calcium Urine pH Urine WBC (Auto) U Epithel Cells (Auto) Vancomycin Trough Phenytoin Crossmatch 01/17/21 01/18/21 01/18/21 23:41 08:47 17:54 WBC RBC Hgb Hct MCV MCH MCHC RDW Plt Count Lymph % (Auto) [place] % (Auto) Lymph # (Auto) [place] # (Auto) Baso # (Auto) Seg Neutrophils % Seg Neuts % (Manual) Lymphocytes % (Manual) Monocytes % (Manual) Nucleated RBC % Seg Neutrophils # Seg Neutrophils # Man Lymphocytes # (Manual) Monocytes # (Manual) PT INR APTT Fibrinogen D-Dimer ABG pH POC ABG pCO2 POC ABG pO2 ABG pO2 ABG HCO3 ABG Base Excess ABG Hemoglobin ABG Oxyhemoglobin ABG Sodium ABG Potassium ABG Chloride ABG Glucose VBG pH Oxyhemoglobin Carboxyhemoglobin Sodium Potassium Chloride Carbon Dioxide BUN Creatinine Glucose POC Glucose 110 H 114 H Random Insulin C-Peptide Lactic Acid Calcium Ionized Calcium Phosphorus Magnesium AST ALT Alkaline Phosphatase Lactate Dehydrogenase NT-Pro-B Natriuret Pep Total Protein Albumin Arterial Blood Glucose Arterial Blood Ionized Calcium Urine pH 8.0 H Urine WBC (Auto) U Epithel Cells (Auto) Vancomycin Trough Phenytoin Crossmatch 01/19/21 01/19/21 01/20/21 05:18 10:47 06:10 WBC RBC Hgb Hct MCV MCH MCHC RDW Plt Count Lymph % (Auto) [place] % (Auto) Lymph # (Auto) [place] # (Auto) Baso # (Auto) Seg Neutrophils % Seg Neuts % (Manual) Lymphocytes % (Manual) Monocytes % (Manual) Nucleated RBC % Seg Neutrophils # Seg Neutrophils # Man Lymphocytes # (Manual) Monocytes # (Manual) PT INR APTT Fibrinogen D-Dimer ABG pH POC ABG pCO2 POC ABG pO2 ABG pO2 ABG HCO3 ABG Base Excess ABG Hemoglobin ABG Oxyhemoglobin ABG Sodium ABG Potassium ABG Chloride ABG Glucose VBG pH Oxyhemoglobin Carboxyhemoglobin Sodium Potassium Chloride Carbon Dioxide BUN Creatinine Glucose POC Glucose 110 H 124 H 110 H Random Insulin C-Peptide Lactic Acid Calcium Ionized Calcium Phosphorus Magnesium AST ALT Alkaline Phosphatase Lactate Dehydrogenase NT-Pro-B Natriuret Pep Total Protein Albumin Arterial Blood Glucose Arterial Blood Ionized Calcium Urine pH Urine WBC (Auto) U Epithel Cells (Auto) Vancomycin Trough Phenytoin Crossmatch 01/20/21 01/21/21 01/23/21 22:13 22:44 06:21 WBC RBC Hgb Hct MCV MCH MCHC RDW Plt Count Lymph % (Auto) [place] % (Auto) Lymph # (Auto) [place] # (Auto) Baso # (Auto) Seg Neutrophils % Seg Neuts % (Manual) Lymphocytes % (Manual) Monocytes % (Manual) Nucleated RBC % Seg Neutrophils # Seg Neutrophils # Man Lymphocytes # (Manual) Monocytes # (Manual) PT INR APTT Fibrinogen D-Dimer ABG pH POC ABG pCO2 POC ABG pO2 ABG pO2 ABG HCO3 ABG Base Excess ABG Hemoglobin ABG Oxyhemoglobin ABG Sodium ABG Potassium ABG Chloride ABG Glucose VBG pH Oxyhemoglobin Carboxyhemoglobin Sodium Potassium Chloride Carbon Dioxide BUN Creatinine Glucose POC Glucose 109 H 120 H 106 H Random Insulin C-Peptide Lactic Acid Calcium Ionized Calcium Phosphorus Magnesium AST ALT Alkaline Phosphatase Lactate Dehydrogenase NT-Pro-B Natriuret Pep Total Protein Albumin Arterial Blood Glucose Arterial Blood Ionized Calcium Urine pH Urine WBC (Auto) U Epithel Cells (Auto) Vancomycin Trough Phenytoin Crossmatch 01/23/21 01/24/21 01/24/21 23:54 04:18 04:18 WBC RBC 5.23 H Hgb Hct MCV 75 L MCH 25 L MCHC RDW Plt Count Lymph % (Auto) [place] % (Auto) 11.8 H Lymph # (Auto) [place] # (Auto) 0.9 H Baso # (Auto) Seg Neutrophils % Seg Neuts % (Manual) Lymphocytes % (Manual) Monocytes % (Manual) Nucleated RBC % Seg Neutrophils # Seg Neutrophils # Man Lymphocytes # (Manual) Monocytes # (Manual) PT INR APTT Fibrinogen D-Dimer ABG pH POC ABG pCO2 POC ABG pO2 ABG pO2 ABG HCO3 ABG Base Excess ABG Hemoglobin ABG Oxyhemoglobin ABG Sodium ABG Potassium ABG Chloride ABG Glucose VBG pH Oxyhemoglobin Carboxyhemoglobin Sodium Potassium Chloride Carbon Dioxide BUN Creatinine Glucose POC Glucose 109 H Random Insulin C-Peptide Lactic Acid Calcium Ionized Calcium Phosphorus Magnesium AST ALT Alkaline Phosphatase Lactate Dehydrogenase NT-Pro-B Natriuret Pep Total Protein Albumin 3.7 L Arterial Blood Glucose Arterial Blood Ionized Calcium Urine pH Urine WBC (Auto) U Epithel Cells (Auto) Vancomycin Trough Phenytoin Crossmatch 01/24/21 01/25/21 01/26/21 05:11 00:29 05:33 WBC RBC Hgb Hct MCV MCH MCHC RDW Plt Count Lymph % (Auto) [place] % (Auto) Lymph # (Auto) [place] # (Auto) Baso # (Auto) Seg Neutrophils % Seg Neuts % (Manual) Lymphocytes % (Manual) Monocytes % (Manual) Nucleated RBC % Seg Neutrophils # Seg Neutrophils # Man Lymphocytes # (Manual) Monocytes # (Manual) PT INR APTT Fibrinogen D-Dimer ABG pH POC ABG pCO2 POC ABG pO2 ABG pO2 ABG HCO3 ABG Base Excess ABG Hemoglobin ABG Oxyhemoglobin ABG Sodium ABG Potassium ABG Chloride ABG Glucose VBG pH Oxyhemoglobin Carboxyhemoglobin Sodium Potassium Chloride Carbon Dioxide BUN Creatinine Glucose POC Glucose 116 H 106 H 109 H Random Insulin C-Peptide Lactic Acid Calcium Ionized Calcium Phosphorus Magnesium AST ALT Alkaline Phosphatase Lactate Dehydrogenase NT-Pro-B Natriuret Pep Total Protein Albumin Arterial Blood Glucose Arterial Blood Ionized Calcium Urine pH Urine WBC (Auto) U Epithel Cells (Auto) Vancomycin Trough Phenytoin Crossmatch 01/27/21 01/27/21 01/27/21 00:05 06:32 10:58 WBC RBC Hgb Hct MCV MCH MCHC RDW Plt Count Lymph % (Auto) [place] % (Auto) Lymph # (Auto) [place] # (Auto) Baso # (Auto) Seg Neutrophils % Seg Neuts % (Manual) Lymphocytes % (Manual) Monocytes % (Manual) Nucleated RBC % Seg Neutrophils # Seg Neutrophils # Man Lymphocytes # (Manual) Monocytes # (Manual) PT INR APTT Fibrinogen D-Dimer ABG pH POC ABG pCO2 POC ABG pO2 ABG pO2 ABG HCO3 ABG Base Excess ABG Hemoglobin ABG Oxyhemoglobin ABG Sodium ABG Potassium ABG Chloride ABG Glucose VBG pH Oxyhemoglobin Carboxyhemoglobin Sodium Potassium Chloride Carbon Dioxide BUN Creatinine Glucose POC Glucose 116 H 108 H 126 H Random Insulin C-Peptide Lactic Acid Calcium Ionized Calcium Phosphorus Magnesium AST ALT Alkaline Phosphatase Lactate Dehydrogenase NT-Pro-B Natriuret Pep Total Protein Albumin Arterial Blood Glucose Arterial Blood Ionized Calcium Urine pH Urine WBC (Auto) U Epithel Cells (Auto) Vancomycin Trough Phenytoin Crossmatch 01/27/21 01/28/21 01/28/21 17:01 06:24 11:41 WBC RBC Hgb Hct MCV MCH MCHC RDW Plt Count Lymph % (Auto) [place] % (Auto) Lymph # (Auto) [place] # (Auto) Baso # (Auto) Seg Neutrophils % Seg Neuts % (Manual) Lymphocytes % (Manual) Monocytes % (Manual) Nucleated RBC % Seg Neutrophils # Seg Neutrophils # Man Lymphocytes # (Manual) Monocytes # (Manual) PT INR APTT Fibrinogen D-Dimer ABG pH POC ABG pCO2 POC ABG pO2 ABG pO2 ABG HCO3 ABG Base Excess ABG Hemoglobin ABG Oxyhemoglobin ABG Sodium ABG Potassium ABG Chloride ABG Glucose VBG pH Oxyhemoglobin Carboxyhemoglobin Sodium Potassium Chloride Carbon Dioxide BUN Creatinine Glucose POC Glucose 113 H 112 H 127 H Random Insulin C-Peptide Lactic Acid Calcium Ionized Calcium Phosphorus Magnesium AST ALT Alkaline Phosphatase Lactate Dehydrogenase NT-Pro-B Natriuret Pep Total Protein Albumin Arterial Blood Glucose Arterial Blood Ionized Calcium Urine pH Urine WBC (Auto) U Epithel Cells (Auto) Vancomycin Trough Phenytoin Crossmatch 01/28/21 01/29/21 01/29/21 17:44 05:47 12:04 WBC RBC 5.27 H Hgb Hct MCV 75 L MCH 24 L MCHC RDW Plt Count Lymph % (Auto) [place] % (Auto) 10.3 H Lymph # (Auto) [place] # (Auto) Baso # (Auto) Seg Neutrophils % Seg Neuts % (Manual) Lymphocytes % (Manual) Monocytes % (Manual) Nucleated RBC % Seg Neutrophils # Seg Neutrophils # Man Lymphocytes # (Manual) Monocytes # (Manual) PT INR APTT Fibrinogen D-Dimer ABG pH POC ABG pCO2 POC ABG pO2 ABG pO2 ABG HCO3 ABG Base Excess ABG Hemoglobin ABG Oxyhemoglobin ABG Sodium ABG Potassium ABG Chloride ABG Glucose VBG pH Oxyhemoglobin Carboxyhemoglobin Sodium Potassium Chloride Carbon Dioxide BUN Creatinine Glucose POC Glucose 108 H 107 H Random Insulin C-Peptide Lactic Acid Calcium Ionized Calcium Phosphorus Magnesium AST ALT Alkaline Phosphatase Lactate Dehydrogenase NT-Pro-B Natriuret Pep Total Protein Albumin Arterial Blood Glucose Arterial Blood Ionized Calcium Urine pH Urine WBC (Auto) U Epithel Cells (Auto) Vancomycin Trough Phenytoin Crossmatch 01/29/21 01/31/21 02/01/21 23:01 16:55 01:01 WBC RBC Hgb Hct MCV MCH MCHC RDW Plt Count Lymph % (Auto) [place] % (Auto) Lymph # (Auto) [place] # (Auto) Baso # (Auto) Seg Neutrophils % Seg Neuts % (Manual) Lymphocytes % (Manual) Monocytes % (Manual) Nucleated RBC % Seg Neutrophils # Seg Neutrophils # Man Lymphocytes # (Manual) Monocytes # (Manual) PT INR APTT Fibrinogen D-Dimer ABG pH POC ABG pCO2 POC ABG pO2 ABG pO2 ABG HCO3 ABG Base Excess ABG Hemoglobin ABG Oxyhemoglobin ABG Sodium ABG Potassium ABG Chloride ABG Glucose VBG pH Oxyhemoglobin Carboxyhemoglobin Sodium Potassium Chloride Carbon Dioxide BUN Creatinine Glucose POC Glucose 108 H 110 H 113 H Random Insulin C-Peptide Lactic Acid Calcium Ionized Calcium Phosphorus Magnesium AST ALT Alkaline Phosphatase Lactate Dehydrogenase NT-Pro-B Natriuret Pep Total Protein Albumin Arterial Blood Glucose Arterial Blood Ionized Calcium Urine pH Urine WBC (Auto) U Epithel Cells (Auto) Vancomycin Trough Phenytoin Crossmatch 02/03/21 02/03/21 02/06/21 06:52 07:17 06:42 WBC RBC Hgb Hct MCV MCH MCHC RDW Plt Count Lymph % (Auto) [place] % (Auto) Lymph # (Auto) [place] # (Auto) Baso # (Auto) Seg Neutrophils % Seg Neuts % (Manual) Lymphocytes % (Manual) Monocytes % (Manual) Nucleated RBC % Seg Neutrophils # Seg Neutrophils # Man Lymphocytes # (Manual) Monocytes # (Manual) PT INR APTT Fibrinogen D-Dimer ABG pH POC ABG pCO2 POC ABG pO2 ABG pO2 ABG HCO3 ABG Base Excess ABG Hemoglobin ABG Oxyhemoglobin ABG Sodium ABG Potassium ABG Chloride ABG Glucose VBG pH Oxyhemoglobin Carboxyhemoglobin Sodium Potassium Chloride Carbon Dioxide BUN Creatinine 0.5 L Glucose POC Glucose 68 L 112 H Random Insulin C-Peptide Lactic Acid Calcium Ionized Calcium Phosphorus Magnesium AST ALT Alkaline Phosphatase Lactate Dehydrogenase NT-Pro-B Natriuret Pep Total Protein Albumin Arterial Blood Glucose Arterial Blood Ionized Calcium Urine pH Urine WBC (Auto) U Epithel Cells (Auto) Vancomycin Trough Phenytoin Crossmatch 02/06/21 02/07/21 02/07/21 23:32 11:49 16:47 WBC RBC Hgb Hct MCV MCH MCHC RDW Plt Count Lymph % (Auto) [place] % (Auto) Lymph # (Auto) [place] # (Auto) Baso # (Auto) Seg Neutrophils % Seg Neuts % (Manual) Lymphocytes % (Manual) Monocytes % (Manual) Nucleated RBC % Seg Neutrophils # Seg Neutrophils # Man Lymphocytes # (Manual) Monocytes # (Manual) PT INR APTT Fibrinogen D-Dimer ABG pH POC ABG pCO2 POC ABG pO2 ABG pO2 ABG HCO3 ABG Base Excess ABG Hemoglobin ABG Oxyhemoglobin ABG Sodium ABG Potassium ABG Chloride ABG Glucose VBG pH Oxyhemoglobin Carboxyhemoglobin Sodium Potassium Chloride Carbon Dioxide BUN Creatinine Glucose POC Glucose 113 H 109 H 106 H Random Insulin C-Peptide Lactic Acid Calcium Ionized Calcium Phosphorus Magnesium AST ALT Alkaline Phosphatase Lactate Dehydrogenase NT-Pro-B Natriuret Pep Total Protein Albumin Arterial Blood Glucose Arterial Blood Ionized Calcium Urine pH Urine WBC (Auto) U Epithel Cells (Auto) Vancomycin Trough Phenytoin Crossmatch 02/07/21 02/08/21 02/08/21 22:59 06:17 06:38 WBC RBC Hgb Hct MCV MCH MCHC RDW Plt Count Lymph % (Auto) [place] % (Auto) Lymph # (Auto) [place] # (Auto) Baso # (Auto) Seg Neutrophils % Seg Neuts % (Manual) Lymphocytes % (Manual) Monocytes % (Manual) Nucleated RBC % Seg Neutrophils # Seg Neutrophils # Man Lymphocytes # (Manual) Monocytes # (Manual) PT INR APTT Fibrinogen D-Dimer ABG pH POC ABG pCO2 POC ABG pO2 ABG pO2 ABG HCO3 ABG Base Excess ABG Hemoglobin ABG Oxyhemoglobin ABG Sodium ABG Potassium ABG Chloride ABG Glucose VBG pH Oxyhemoglobin Carboxyhemoglobin Sodium 132 L Potassium Chloride 94.2 L Carbon Dioxide BUN Creatinine 0.5 L Glucose 101 H POC Glucose 106 H 110 H Random Insulin C-Peptide Lactic Acid Calcium Ionized Calcium Phosphorus Magnesium AST ALT Alkaline Phosphatase Lactate Dehydrogenase NT-Pro-B Natriuret Pep Total Protein Albumin Arterial Blood Glucose Arterial Blood Ionized Calcium Urine pH Urine WBC (Auto) U Epithel Cells (Auto) Vancomycin Trough Phenytoin Crossmatch 02/08/21 02/09/21 02/09/21 12:51 00:03 06:27 WBC RBC Hgb Hct MCV MCH MCHC RDW Plt Count Lymph % (Auto) [place] % (Auto) Lymph # (Auto) [place] # (Auto) Baso # (Auto) Seg Neutrophils % Seg Neuts % (Manual) Lymphocytes % (Manual) Monocytes % (Manual) Nucleated RBC % Seg Neutrophils # Seg Neutrophils # Man Lymphocytes # (Manual) Monocytes # (Manual) PT INR APTT Fibrinogen D-Dimer ABG pH POC ABG pCO2 POC ABG pO2 ABG pO2 ABG HCO3 ABG Base Excess ABG Hemoglobin ABG Oxyhemoglobin ABG Sodium ABG Potassium ABG Chloride ABG Glucose VBG pH Oxyhemoglobin Carboxyhemoglobin Sodium Potassium Chloride Carbon Dioxide BUN Creatinine Glucose POC Glucose 109 H 139 H 106 H Random Insulin C-Peptide Lactic Acid Calcium Ionized Calcium Phosphorus Magnesium AST ALT Alkaline Phosphatase Lactate Dehydrogenase NT-Pro-B Natriuret Pep Total Protein Albumin Arterial Blood Glucose Arterial Blood Ionized Calcium Urine pH Urine WBC (Auto) U Epithel Cells (Auto) Vancomycin Trough Phenytoin Crossmatch 02/09/21 02/09/21 02/09/21 10:59 10:59 11:50 WBC RBC 5.37 H Hgb Hct MCV 73 L MCH 25 L MCHC RDW Plt Count Lymph % (Auto) [place] % (Auto) Lymph # (Auto) [place] # (Auto) Baso # (Auto) Seg Neutrophils % Seg Neuts % (Manual) Lymphocytes % (Manual) Monocytes % (Manual) 13.0 H Nucleated RBC % Seg Neutrophils # Seg Neutrophils # Man Lymphocytes # (Manual) Monocytes # (Manual) PT INR APTT Fibrinogen D-Dimer ABG pH POC ABG pCO2 POC ABG pO2 ABG pO2 ABG HCO3 ABG Base Excess ABG Hemoglobin ABG Oxyhemoglobin ABG Sodium ABG Potassium ABG Chloride ABG Glucose VBG pH Oxyhemoglobin Carboxyhemoglobin Sodium 133 L Potassium Chloride 96.9 L Carbon Dioxide 20 L BUN Creatinine 0.5 L Glucose 104 H POC Glucose 120 H Random Insulin C-Peptide Lactic Acid Calcium Ionized Calcium Phosphorus Magnesium AST ALT Alkaline Phosphatase Lactate Dehydrogenase NT-Pro-B Natriuret Pep Total Protein Albumin Arterial Blood Glucose Arterial Blood Ionized Calcium Urine pH Urine WBC (Auto) U Epithel Cells (Auto) Vancomycin Trough Phenytoin Crossmatch 02/09/21 02/09/21 17:35 23:25 WBC RBC Hgb Hct MCV MCH MCHC RDW Plt Count Lymph % (Auto) [place] % (Auto) Lymph # (Auto) [place] # (Auto) Baso # (Auto) Seg Neutrophils % Seg Neuts % (Manual) Lymphocytes % (Manual) Monocytes % (Manual) Nucleated RBC % Seg Neutrophils # Seg Neutrophils # Man Lymphocytes # (Manual) Monocytes # (Manual) PT INR APTT Fibrinogen D-Dimer ABG pH POC ABG pCO2 POC ABG pO2 ABG pO2 ABG HCO3 ABG Base Excess ABG Hemoglobin ABG Oxyhemoglobin ABG Sodium ABG Potassium ABG Chloride ABG Glucose VBG pH Oxyhemoglobin Carboxyhemoglobin Sodium Potassium Chloride Carbon Dioxide BUN Creatinine Glucose POC Glucose 115 H 145 H Random Insulin C-Peptide Lactic Acid Calcium Ionized Calcium Phosphorus Magnesium AST ALT Alkaline Phosphatase Lactate Dehydrogenase NT-Pro-B Natriuret Pep Total Protein Albumin Arterial Blood Glucose Arterial Blood Ionized Calcium Urine pH Urine WBC (Auto) U Epithel Cells (Auto) Vancomycin Trough Phenytoin Crossmatch Assessment and Plan - Patient Problems (1) Acute respiratory failure Current Visit: Yes Status: Acute (2) ADOLPH (acute kidney injury) Current Visit: Yes Status: Acute (3) Encephalopathy Current Visit: Yes Status: Acute (4) Preeclampsia Current Visit: Yes Status: Acute
[2021-02-11] MEDS: ACETAMINOPHEN 325 MG/10.15 ML ORAL LIQD UNIT DOSE FEEDTUBE PRN ×2 (06:40→22:38)
[2021-02-11] MEDS: METOPROLOL TARTRATE 25 MG TAB PO SCH ×2 (09:01→22:31)
[2021-02-11] MEDS: FAMOTIDINE 20 MG TAB PO SCH ×2 (09:01→22:31)
[2021-02-11] MEDS: ENOXAPARIN 40 MG/0.4 ML INJ SUB-Q SCH (09:01)
--- NOTE | 2021-02-11 10:56 | Electrocardiograph Report ---
[facility] Test Date: 2021-02-11 Test Time: 08:12:49 Pat Name: LOCO SALGADO Department: Room: A392 1 Gender: F Seasoner Hand: CLARISA : 1990 Requested By: DOMINGO BENITEZ Order Number: [id number] Reading MD: Alejandro Greene Measurements Intervals [place] Rate: 112 P: 64 SC: 147 QRS: 66 QRSD: 81 T: 27 QT: 347 QTc: 474 Interpretive Statements Sinus tachycardia No previous ECG available for comparison Electronically Signed On 02-11-2021 10:55:44 EDT by Alejandro Greene
[2021-02-11] MEDS ORDERED: SODIUM CHLORIDE 0.9% 1000 ML 1,000 ML IV ONE (14:09)
--- NOTE | 2021-02-11 14:16 | Progress Note ---
Assessment and Plan Assessment and plan: 30 year old -Iraqi female CHE 10/25/20 at 36w5d who presents with seizures in triage on 10/02/20. Pt was not able to provide history but per pt's , she presented to the hospital to return a 24 hour urine specimen for analysis. She then suddenly reported that she did not feel good. She was taken to labor and delivery and shortly after arrival, she began seizing. During this time, a code met was called because the patient became hypoxic. She was then noted to be without a pulse. Chest compressions were started immediately, and the patient was emergently taken to the operating room for delivery of the fetus. Off note, This patient has had care at [facility] with comanagement by [facility] since 11 wks complicated by ADHD, morbid obesity, generalized anxiety disorder, panic attacks, chronic narcotic use, fibromyalgia, GERD, Irritable Bowel Syndrome, Migraines, h/o endometrial ablation and ovarian vein embolization, genital herpes, insomnia, LGA fetus, nausea and vomiting, polyhydramnios, quad screen positive for Down's Syndrome, and previous x 3. She is GBS negative. Today patient resting comfortably no acute distress. Nonverbal 12/03/20 11:30: Pt brought to L&D triage for evaluation of possible labor. Pt accompanied by her spouse. Pt spouse poor historian; unable to obtain history- allergies at this time. Pt taken from registration to triage area via WC. Pt unresponsive, actively seizing with snorous respirations. assistant professor of drama, Kassy, called and requesting assistance. 11:35: Multiple staff at bedside. Pt 02 sat 67% on nonrebreather, unable to read BP at this time. Yifan Theodore CRNA, at bedside for intubation and assistance with IV insertion. INT attempt by multiple RNs unsuccessful at this time. 11:42: Pt being bagged by KORIN, 02% 79%. No pulse palpated, compressions started at this time; bharati young called and Dr. Newberry preparing OR for emergent c/s. 11:44: Continued compressions on stretcher while transporting pt to OR 1. Pt being bagged with jaw thrust manuever in place by KORIN Stringer student. 11:45: Arrival to OR 1. Dr. Newberry and Dr. Portillo present for emergent c/s. Code team arrived for continued care. patient revived and c/s done Patient has been bleeding from C/s site followed by supracervical hysterectomy for severe bleeding Patient transfused multiple units of PRBC, Patient in DIC. Transferred to the ICU 10/03. Patient seen and examined at bedside this morning. Patient is nonresponsive and mechanically ventilated. On pressors. Labs reviewed-has leukocytosis, anemia, thrombocytopenia, ADOLPH and lactic acidosis. Started on IV antibiotics to cover possible sepsis secondary to DIC. Hematology oncology recommendations appreciated-needs additional cryoprecipitate and FFP. Monitor D-dimer, fibrinogen and frequent labs. Nephrology consulted for lactic acidosis and ADOLPH. 10/04. Remains mechanically ventilated. Kevin antibiotics. Labs shows improved acidosis - lactic acid 3.5. Hb drop noted. Getting transfused 2 units PRBCs. Platelet count is ~40k. Continue to monitor labs closely. Critical care team on board. 10/05; xray reviewed, concerning for multifocal infilrate, likely underlying P neumonia, will add ID consult to assist with management of this critically ill patient, start tube feed, closely monitor renal system 10/06: Resumed care, remains on mechanical ventilation. No active bleeding, H&H stable. Continue to monitor CBC and BMP. Continue IV antibiotic for underlying pneumonia. Follow critical care and ID recommendation. 10/07: Remains on mechanical ventilation. No active bleeding, H&H stable. Critical care following, wean off ventilation as tolerated. 10/08: Patient had another cardiac arrest last night. Remains on mechanical ventilation, update family. Continue supportive care -poor prognosis 10/09: Called patient mother and discussed about patient care and management. Answered all question to best of my knowledge and family satisfaction. Patient remains on mechanical ventilation, cardiac arrest x2 so far. Critically sick, poor prognosis 10/10: remains on mechanical ventilation. h/h stable, no active bleeding. monitor CBC/BMP 10/11: WBC trended up with diarrhea, started on vancomycin po. remains on MV, off pressor, tolerating TF 10/12: remains on MV, off pressor, tolerating TF. called family for update but unable to reach, could not leave message as it was full. cont supportive care, wean off vent as tolerated. 10/13/2020; patient is on mechanical ventilation, tolerating tube feeding. Patient has labored breathing. Neuro was consulted and recommend MRI. Patient is on Precedex. Rectal tube in place. 10/14/2020; patient is on mechanical ventilation, Precedex. Patient had fever and blood culture ordered. Patient is on IV vancomycin per ID recommendation. Neuro consulted and recommend MRI. Continue to monitor. Prognosis is guarded. 10/15/2020; patient is on mechanical ventilation, Precedex. Patient had fever and blood culture ordered. Patient is on IV vancomycin per ID recommendation. Neuro consulted and recommend MRI. Continue to monitor. Prognosis is guarded. 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 12/06/20; anoxic brain injury. Awaiting placement. 12/07/2020; anoxic brain injury, awaiting placement. 12/09/2020; anoxic brain injury, awaiting placement. 12/10/2020; patient had episodes of fever overnight. CBC, BMP, blood culture, UA and chest x-ray ordered, will follow and manage accordingly. Urinalysis is suggestive of UTI and I put the patient on ceftriaxone, order urine culture. Chest x-ray is normal. 12/11/2020; patient is on ceftriaxone day 2 for UTI. We will continue to follow urine culture. 12/12/2020. Day #3 of Rocephin for UTI. We will continue for 2 more days while she is here. Present UTI. 12/13/2020. Day #4 of Rocephin for UTI. Patient remains on 50% with tracheo stomy. Remains unresponsive with evidence of anoxic encephalopathy unable to make needs known. 12/14/2020. Day #5 of Rocephin for UTI completed today. Remains encephalopathic unable to make needs known. Remains on 50% unable to decrease oxygen via tracheostomy. Overall prognosis remains extremely poor. 32: Continue to monitor. Stop and monitor antibiotics at this time. Continue to wean oxygen as tolerated. Wean oxygen as tolerated. Case management working on placement. 12/16: Continue supportive care aspiration precautions. Awaiting placement discussion. Monitor fever curve. Prognosis remains poor no evidence of neurological recovery as of today 34: Continue supportive care, check labs and chest xray. Still monitor off antibiotics. Monitor Sodium level 12/18: Patient remains with intermittent low grade fever, reviewed EEG from September again, consistent for Ischemic Hypoxic Encephalopathy, patient with decorticating posturing type presentation. Will discuss with master pilot to o ptimize diet so we can discontinue D5. CXR with no abnormality. Discussed extensively with the nursing staff at bedside CXR IMPRESSION: 1. No acute findings. 12/19: No clinical change 12/20: No clinical change, now off abx, monitor, discussed her medications with our pharmacist I believe that her posture and rigidity is likely from underlying anoxic encephalopathy. Continue to monitor and await placement decision. Continue aggressive suctioning. Plan discussed in detail with the nursing staff 12/21: Continue supportive care. Will give 500 cc bolus of fluid today to replace insensible losses. Tachycardia appears to be improving. Blood pressure precludes adjusting cardiac meds. Still awaiting placement from case management. Plan discussed in detail with the nursing staff 12/22. Continue support supportive care. Tracheostomy and PEG in place. Remains nonresponsive. Awaiting placement. 12/23. Continue support supportive care. Tracheostomy and PEG in place. Remains nonresponsive. Awaiting placement. Remains tachycardic. Decrease dose of lasix. Will try low dose metoprolol. Monitor BP closely 12/24. Continue support supportive care. Tracheostomy and PEG in place. Remains nonresponsive. Awaiting placement. Heart rate slightly better. Continue to monitor BP closely 12/25. Continue support supportive care. Tracheostomy and PEG in place. Remains nonresponsive. Awaiting placement. 12/26. Continue support supportive care. Tracheostomy and PEG in place. Remains nonresponsive. Awaiting placement 12/27. Continue support supportive care. Tracheostomy and PEG in place. Remains nonresponsive. Awaiting placement 12/28. Had fever yesterday. Blood culture drawn. UA - UTI - started on antibiotics. Now tracheal aspirate is growing GN rods. 12/29: Continue IV antibiotics, continue supportive care. Since admission patient has shown minimal or no chance of neurological recovery. Need 24/7 assistance. Currently on trach and PEG, nonverbal. Waiting on SNF placement. Discussed with manager case today. 12/30: Continue IV antibiotics for UTI, continue supportive care. Pending placement 12/31: continue supportive care. continue supportive care. Pending placement 01/01: continue supportive care. Pending placement. cont Iv abx for UTI till 01/04 01/02: Continue supportive care, pending placement. Sodium level slightly elevated, will start hypotonic fluid. Continue antibiotics till 01/04 01/03; cont hypotonic fluid, increase free water with TF for hypernatremia, follow BMP. cont supportive care. pending placement. cont cefepime. recx blood 01/04: resolved hyponatremia, cont supportive care, pending placement. Last day of supplement today. 01/05: Continue supportive care, pending placement. Monitor H&H and fever curve off antibiotic. 01/06; monitor off abx, suction as needed, Continue supportive care, pending placement. 01/07: Discharge pending on placement, vitals stable. Continue supportive care 01/08: Discharge pending on placement, vitals stable. Continue supportive care. stop lasix, increase metoprolol to 25mg BID for ST. 01/09 patient resting with eyes closed. Opens eyes to tactile stimulus, has a blink reflex, does not follow simple commands, has a T-collar / G-tube Lab results reviewed, low-grade fever, 01/10 Eyes open, does not follow simple commands, no acute events overnight 01/11 no acute events overnight, Waiting for placement 01/12 No acute events overnight. Patient awaiting for placement 01/13. No new issues. Awaiting placement 01/14. No new issues. Awaiting placement. 01/15. No new issues. Awaiting placement. 01/16. No new issues. Patient remain stable. Awaiting placement. Check maintenance labs. 01/17. Routine maintenance labs were ordered and are still pending. Await placement. 01/18. Patient with low-grade fever past 24-48 hrs. WBC within normal limits. Check chest x-ray, urinalysis and consider blood cultures. Continue tracheostomy care, secretion control and airway management. Patient currently with PEG and tube feedings at 60 cc an hour. Nutritional support and aspiration precautions. 01/19. Temperature 100.7 overnight. Continue to monitor closely. Continue tracheostomy care, secretion control and airway management. Patient currently with PEG and tube feedings at 60 cc an hour. Nutritional support and aspiration precautions. 01/20. Continue to monitor closely. Continue tracheostomy care, secretion control and airway management. Patient currently with PEG and tube feedings at 60 cc an hour. Nutritional support and aspiration precautions. 01/21. Afebrile overnight. Continue to monitor closely. Continue tracheostomy care, secretion control and airway management. Patient currently with PEG and tube feedings at 60 cc an hour. Nutritional support and aspiration precautions. 01/22. Continue to monitor closely. Continue tracheostomy care, secretion control and airway management. Patient currently with PEG and tube feedings at 60 cc an hour. Nutritional support and aspiration precautions. 01/23. Continue tracheostomy care, secretion control and airway management. Patient currently with PEG and tube feedings at 60 cc an hour. Nutritional support and aspiration precautions. Will get routine labs tomorrow. 01/24. Labs reviewed. No abnormalities. Continue tracheostomy care, secretion control and airway management. Patient currently with PEG and tube feedings at 60 cc an hour. Nutritional support and aspiration precautions. 01/25. Temp 100.6. More sleepy today. Will get chest xray, blood culture, urinalysis, sputum cultures. Will start on empirical abx. 01/26: Vitals noted, slightly tachycardic. Follow culture work-up, continue supportive care. 01/27: Spiking low-grade temp, negative UA, sputum culture and recent blood cultures also negative. Continue to monitor off antibiotics. Continue supportive care. Pending placement. 01/28: cont to spike low grade temp, negative UA, sputum culture and recent blood cultures also negative. Continue to monitor off antibiotics. will order fpr sinus xry. Continue supportive care. Pending placement. 01/29: Continue to follow clinically, intermittently spiking low-grade temp, all recent culture work is negative, negative UA, normal respiratory jaylan 1 tracheal aspirate. Vitals noted and currently stable. Pending placement 01/30: Clinically unchanged, continue to monitor vitals, continue supportive cares. Pending placement. Discussed plan of care with RN at the bedside. 01/31 - TODATE: cont supportive care, pending placement. monitor vitals carefully. Discussed with family at the bedside. 02/06. Patient afebrile today. Continue trach care. Secretions stable today. Culture data negative so far. Awaiting placement. 02/07. Awaiting placement awaiting family member to evaluate papers. Continue trach care secretions stable. Pending placement 02/09: Intermittent fever, ?drug related, will check cxr and also labs. No new complaints. 02/10: Patient's trach dislodged today. Nevertheless respiratory status is intact attempt to reinsert was unsuccessful will monitor discussed with nursing staff to pay close attention to the patient. Considering that this was not a planned decannulation I will start the patient on continuous pulse ox until full evaluation was done by pulmonary. 02/11: Continue supportive care, give a bolus of fluids. AND MONITOR PATIENT WITH HYPOTENSION History Interval history: Patient seen and examined, no noted hypoxia, still with tachycardia. Hospitalist Physical - Physical exam Narrative exam: General appearance: Present: no acute distress, well-nourished, other (Chronically ill) dressing over stoma - Respiratory Respiratory: bilateral: CTA Extremities: abnormal Extremity abnormal: other (Contractures generalized weakness trace edema) CHEST: Rales posteriorly - Musculoskeletal Musculoskeletal: generalized weakness - Neurologic Neurologic: other - Psychiatric Psychiatric: other (Focal deficits) - Constitutional Vitals: Temp Pulse Resp BP Pulse Ox 99.2 F 126 H 20 105/63 97 02/11/21 07:40 02/11/21 09:01 02/11/21 06:40 02/11/21 09:01 02/11/21 04:56 General appearance: Present: no acute distress, well-nourished, other (Chronically ill) HEART Score - HEART Score Age: < 45 Risk factors: 1-2 risk factors - Critical Actions Critical Actions: >7 pts:50-65% risk of adverse cardiac event. Early invasive measures Results - Labs CBC & Chem 7: 02/09/21 10:59 02/09/21 10:59 Labs: Laboratory Last Values WBC 6.3 K/mm3 (4.5-11.0) 02/09/21 10:59 RBC 5.37 M/mm3 (3.65-5.03) H 02/09/21 10:59 Hgb 13.2 gm/dl (10.1-14.3) 02/09/21 10:59 Hgb Comment See scanned result 10/04/20 Unknown Hct 39.4 % (30.3-42.9) 02/09/21 10:59 MCV 73 fl (79-97) L 02/09/21 10:59 MCH 25 pg (28-32) L 02/09/21 10:59 MCHC 33 % (30-34) 02/09/21 10:59 RDW 14.1 % (13.2-15.2) 02/09/21 10:59 Plt Count 264 K/mm3 (140-440) 02/09/21 10:59 Lymph % (Auto) 26.7 % (13.4-35.0) 01/29/21 05:47 Jack % (Auto) Towel Sorter 02/09/21 10:59 Eos % (Auto) 1.6 % (0.0-4.3) 01/29/21 05:47 Baso % (Auto) 0.4 % (0.0-1.8) 01/29/21 05:47 Lymph # (Auto) 2.1 K/mm3 (1.2-5.4) 01/29/21 05:47 Jack # (Auto) 0.8 K/mm3 (0.0-0.8) 01/29/21 05:47 Eos # (Auto) 0.1 K/mm3 (0.0-0.4) 01/29/21 05:47 Baso # (Auto) 0.0 K/mm3 (0.0-0.1) 01/29/21 05:47 Add Manual Diff Complete 02/09/21 10:59 Total Counted 100 02/09/21 10:59 Seg Neutrophils % 61.0 % (40.0-70.0) 01/29/21 05:47 Seg Neuts % (Manual) 58.0 % (40.0-70.0) 02/09/21 10:59 Band Neutrophils % 2.0 % 10/15/20 05:50 Lymphocytes % (Manual) 29.0 % (13.4-35.0) 02/09/21 10:59 Reactive Lymphs % (Man) 1.0 % 10/02/20 12:18 Monocytes % (Manual) 13.0 % (0.0-7.3) H 02/09/21 10:59 Eosinophils % (Manual) 1.0 % (0.0-4.3) 10/29/20 07:56 Myelocytes % 2.0 % 10/02/20 13:05 Metamyelocytes % 1.0 % 10/14/20 04:00 Nucleated RBC % Not Reportable 02/09/21 10:59 Seg Neutrophils # 4.7 K/mm3 (1.8-7.7) 01/29/21 05:47 Seg Neutrophils # Man 3.7 K/mm3 (1.8-7.7) 02/09/21 10:59 Band Neutrophils # 0.0 K/mm3 02/09/21 10:59 Lymphocytes # (Manual) 1.8 K/mm3 (1.2-5.4) 02/09/21 10:59 Abs React Lymphs (Man) 0.0 K/mm3 02/09/21 10:59 Monocytes # (Manual) 0.8 K/mm3 (0.0-0.8) 02/09/21 10:59 Eosinophils # (Manual) 0.0 K/mm3 (0.0-0.4) 02/09/21 10:59 Basophils # (Manual) 0.0 K/mm3 (0.0-0.1) 02/09/21 10:59 Metamyelocytes # 0.0 K/mm3 02/09/21 10:59 Myelocytes # 0.0 K/mm3 02/09/21 10:59 Promyelocytes # 0.0 K/mm3 02/09/21 10:59 Blast Cells # 0.0 K/mm3 02/09/21 10:59 WBC Morphology Not Reportable 02/09/21 10:59 Hypersegmented Neuts Not Reportable 02/09/21 10:59 Hyposegmented Neuts Not Reportable 02/09/21 10:59 Hypogranular Neuts Not Reportable 02/09/21 10:59 Smudge Cells Not Reportable 02/09/21 10:59 Toxic Granulation Not Reportable 02/09/21 10:59 Toxic Vacuolation Not Reportable 02/09/21 10:59 Dohle Bodies Not Reportable 02/09/21 10:59 Pelger-Huet Anomaly Not Reportable 02/09/21 10:59 Ester Rods Not Reportable 02/09/21 10:59 Platelet Estimate Consistent w auto 02/09/21 10:59 Clumped Platelets Not Reportable 02/09/21 10:59 Plt Clumps, EDTA Not Reportable 02/09/21 10:59 Large Platelets Few 02/09/21 10:59 Giant Platelets Not Reportable 02/09/21 10:59 Platelet Satelliting Not Reportable 02/09/21 10:59 Plt Morphology Comment Not Reportable 02/09/21 10:59 RBC Morphology Not Reportable 02/09/21 10:59 Dimorphic RBCs Not Reportable 02/09/21 10:59 Polychromasia Not Reportable 02/09/21 10:59 Hypochromasia 1+ 02/09/21 10:59 Poikilocytosis Not Reportable 02/09/21 10:59 Anisocytosis Not Reportable 02/09/21 10:59 Microcytosis Not Reportable 02/09/21 10:59 Macrocytosis Not Reportable 02/09/21 10:59 Spherocytes Not Reportable 02/09/21 10:59 Pappenheimer Bodies Not Reportable 02/09/21 10:59 Sickle Cells Not Reportable 02/09/21 10:59 Target Cells Not Reportable 02/09/21 10:59 Tear Drop Cells Not Reportable 02/09/21 10:59 Ovalocytes Not Reportable 02/09/21 10:59 Stomatocytes Few 10/14/20 04:00 Helmet Cells Not Reportable 02/09/21 10:59 Burk-[place] Bodies Not Reportable 02/09/21 10:59 Stow Rings Not Reportable 02/09/21 10:59 Antoine Cells Not Reportable 02/09/21 10:59 Bite Cells Not Reportable 02/09/21 10:59 Crenated Cell Not Reportable 02/09/21 10:59 Elliptocytes Not Reportable 02/09/21 10:59 Acanthocytes (Spur) Not Reportable 02/09/21 10:59 Rouleaux Not Reportable 02/09/21 10:59 Hemoglobin C Crystals Not Reportable 02/09/21 10:59 Schistocytes Not Reportable 02/09/21 10:59 Malaria parasites Not Reportable 02/09/21 10:59 Sickle Cell Solubility See scanned result 10/04/20 Unknown Hemoglobin A See scanned result 10/04/20 Unknown Hemoglobin A2 See scanned result 10/04/20 Unknown Hemoglobin A2 Prime See scanned result 10/04/20 Unknown Hemoglobin C See scanned result 10/04/20 Unknown Hemoglobin D See scanned result 10/04/20 Unknown Hemoglobin E See scanned result 10/04/20 Unknown Hgb F Diffential Stain See scanned result 10/04/20 Unknown Hemoglobin F Quant See scanned result 10/04/20 Unknown Hemoglobin G See scanned result 10/04/20 Unknown Hemoglobin S See scanned result 10/04/20 Unknown Hemoglobin [place] See scanned result 10/04/20 Unknown Hemoglobin [place] See scanned result 10/04/20 Unknown Hemoglobin Analilia See scanned result 10/04/20 Unknown Variant Hemoglobin See scanned result 10/04/20 Unknown Abnorm Hgb IEF Confirm See scanned result 10/04/20 Unknown Hemoglobin Interpret See scanned result 10/04/20 Unknown Hemoglobinopathy Note See scanned result 10/04/20 Unknown Sharad Bodies Not Reportable 02/09/21 10:59 Hem Pathologist Commnt No 02/09/21 10:59 PT 13.6 Sec. (12.2-14.9) 10/21/20 13:54 INR 1.06 (0.87-1.13) 10/21/20 13:54 APTT 31.6 Sec. (24.2-36.6) 10/03/20 00:40 Fibrinogen 336 mg/dl (211-480) 10/04/20 10:00 D-Dimer 1974.47 ng/mlDDU (0-234) H 11/11/20 13:50 ABG pH 7.459 pH Units (7.350-7.450) H 10/26/20 10:30 POC ABG pCO2 20.7 mmHg (32.0-48.0) L 10/13/20 07:18 ABG pCO2 32.4 mm Hg 10/26/20 10:30 POC ABG pO2 137.9 mmHg (83-108) H 10/13/20 07:18 ABG pO2 112.2 mm Hg (80.0-90.0) H 10/26/20 10:30 POC ABG HCO3 14.8 10/13/20 07:18 ABG HCO3 22.5 mmol/L (20.0-26.0) 10/26/20 10:30 ABG O2 Saturation 98.2 % (95.0-99.0) 10/26/20 10:30 ABG O2 Content 18.5 (0.0-44) 10/26/20 10:30 POC ABG Base Excess -6.9 10/13/20 07:18 ABG Base Excess -0.6 mmol/L (-2.0-3.0) 10/26/20 10:30 ABG Hemoglobin 13.5 gm/dl (12.0-16.0) 10/26/20 10:30 ABG Oxyhemoglobin 98.3 (94-98) H 10/13/20 07:18 ABG Carboxyhemoglobin 1.3 % (0.0-5.0) 10/26/20 10:30 ABG Methemoglobin 0.5 % (0.0-1.5) 10/26/20 10:30 ABG Sodium 135.9 mmol/L (136.0-145.0) L 10/13/20 07:18 ABG Potassium 3.7 mmol/L (3.40-4.50) 10/13/20 07:18 ABG Chloride 111.0 mmol/L (98-107) H 10/13/20 07:18 ABG Glucose 109 mg/dL (65-95) H 10/13/20 07:18 VBG pH 6.949 (7.320-7.420) L* 10/02/20 Unknown Oxyhemoglobin 96.5 % (95.0-99.0) 10/26/20 10:30 Carboxyhemoglobin 0.3 (0.5-1.5) L 10/13/20 07:18 FiO2 25 % 10/26/20 10:30 Sodium 133 mmol/L (137-145) L 02/09/21 10:59 Potassium 5.0 mmol/L (3.6-5.0) 02/09/21 10:59 Chloride 96.9 mmol/L (98-107) L 02/09/21 10:59 Carbon Dioxide 20 mmol/L (22-30) L 02/09/21 10:59 Anion Gap 21 mmol/L 02/09/21 10:59 BUN 13 mg/dL (7-17) 02/09/21 10:59 Creatinine 0.5 mg/dL (0.6-1.2) L 02/09/21 10:59 Estimated GFR > 60 ml/min 02/09/21 10:59 BUN/Creatinine Ratio 26 % 02/09/21 10:59 Glucose 104 mg/dL (65-100) H 02/09/21 10:59 POC Glucose 117 mg/dL (70-105) H 02/11/21 11:35 Random Insulin 43.2 uIU/mL (<=19.6) H 11/02/20 19:19 Proinsulin See scanned result 11/02/20 19:19 C-Peptide 6.23 ng/mL (0.80-3.85) H 11/02/20 19:19 Lactic Acid 1.90 mmol/L (0.7-2.0) 10/04/20 22:00 Uric Acid 7.5 mg/dL (3.5-7.6) 10/02/20 13:05 Calcium 9.5 mg/dL (8.4-10.2) 02/09/21 10:59 Ionized Calcium 4.4 mg/dL (4.8-5.6) L 10/07/20 21:00 Phosphorus 4.60 mg/dL (2.5-4.5) H 11/13/20 10:05 Magnesium 2.10 mg/dL (1.7-2.3) 11/13/20 10:05 Total Bilirubin 0.30 mg/dL (0.1-1.2) 01/24/21 04:18 AST 31 units/L (5-40) 01/24/21 04:18 ALT 21 units/L (7-56) 01/24/21 04:18 Alkaline Phosphatase 92 units/L (35-129) 01/24/21 04:18 Lactate Dehydrogenase 769 units/L (91-180) H 10/02/20 13:05 C-Reactive Protein 0.70 mg/dL (0.00-1.30) 11/11/20 13:50 NT-Pro-B Natriuret Pep 2788 pg/mL (0-450) H 10/04/20 10:00 Total Protein 7.7 g/dL (6.3-8.2) 01/24/21 04:18 Albumin 3.7 g/dL (3.9-5) L 01/24/21 04:18 Albumin/Globulin Ratio 0.9 % 01/24/21 04:18 Procalcitonin < 0.05 ng/mL (<0.15) 12/27/20 20:16 Arterial Blood Glucose 109 mg/dL (65-95) H 10/13/20 07:18 Arterial Blood Ionized Calcium 4.6 mg/dL (4.6-5.3) 10/13/20 07:18 Urine Color Yellow (Yellow) 01/25/21 09:51 Urine Turbidity Cloudy (Clear) 01/25/21 09:51 Urine pH 7.0 (5.0-7.0) 01/25/21 09:51 Ur Specific Ruth 1.011 (1.003-1.030) 01/25/21 09:51 Urine Protein <15 mg/dl mg/dL (Negative) 01/25/21 09:51 Urine Glucose (UA) Neg mg/dL (Negative) 01/25/21 09:51 Urine Ketones Neg mg/dL (Negative) 01/25/21 09:51 Urine Blood Neg (Negative) 01/25/21 09:51 Urine Nitrite Neg (Negative) 01/25/21 09:51 Urine Bilirubin Neg (Negative) 01/25/21 09:51 Urine Urobilinogen < 2.0 mg/dL (<2.0) 01/25/21 09:51 Ur Leukocyte Esterase Neg (Negative) 01/25/21 09:51 Urine WBC (Auto) 6.0 /HPF (0.0-6.0) 01/25/21 09:51 Urine RBC (Auto) 3.0 /HPF (0.0-6.0) 01/25/21 09:51 U Epithel Cells (Auto) < 1.0 /HPF (0-13.0) 01/25/21 09:51 Urine Bacteria (Auto) 1+ /HPF (Negative) 01/18/21 08:47 Urine WBC Clumps 3+ /HPF 11/11/20 13:50 Calcium Oxalate Crystal Few 11/11/20 13:50 Urine Mucus Few /HPF 01/25/21 09:51 Urine Yeast (Budding) 2+ /HPF 01/25/21 09:51 Vancomycin Trough 12.6 ug/mL (5.0-20.0) 10/21/20 13:54 Random Vancomycin 10.7 ug/mL (0-40.0) 10/16/20 13:09 Phenytoin 5.7 ug/mL (10.0-20.0) L 10/13/20 07:00 C. difficile Tox (PCR) Positive (Negative) 10/16/20 10:22 Coronavirus (PCR) Negative (Negative) 10/08/20 14:15 Blood Type O POSITIVE 10/02/20 12:50 Antibody Screen Negative 10/02/20 12:50 Crossmatch See Detail 10/02/20 12:50 - Diagnostic Impressions Diagnostic Impressions: Echocardiogram 10/03/20 13:42 Transthoracic Echocardiogram Indication: S/P Cardiac Arrest R/O Cardiomyopathy BP: 133/71 Conclusions *Global left ventricular systolic function is normal. *The estimated ejection fraction is 60-65%. *There is trace of mitral regurgitation. *The right 0heart chambers are both slightly dilated. *There is mild tricuspid regurgitation. *There is mild-moderate pulmonary hypertension. *The right ventricular systolic pressure is calculated at 44 mmHg. *The study quality is technically difficult. Findings Procedure Info: The study quality is technically difficult. The study is technically limited due to patient body habitus. The study was technically limited due to the patient's inability to lay in the left lateral decubitus position. Left Ventricle: The left ventricular chamber size is normal. There is no left ventricular hypertrophy. Global left ventricular systolic function is normal. The estimated ejection fraction is 60-65%. Left Atrium: The left atrial chamber size is normal. Right Ventricle: The right ventricle is slightly dilated. Right Atrium: The right atrium is mildly dilated. Aortic Valve: The aortic valve leaflets are mildly thickened. There is no evidence of aortic regurgitation. There is no evidence of aortic stenosis. Mitral Valve: The mitral valve leaflets are mildly thickened. There is trace of mitral regurgitation. There is no evidence of mitral stenosis. Tricuspid Valve: There is mild tricuspid regurgitation. The right ventricular systolic pressure is calculated at 44 mmHg. There is evidence of mild pulmonary hypertension. Pulmonic Valve: There is trace pulmonic regurgitation. Pericardium: There is no pericardial effusion. Aorta: There is no dilatation of the ascending aorta. There is no dilatation of the aortic root. Venous: The inferior vena cava is dilated. Measurements Chambers 2D Name Value Normal Range IVSd (2D) 1 cm (0.6 - 1.1) LVPWd (2D) 1.01 cm (0.6 - 1.1) LVIDd (2D) 4.58 cm (3.7 - 5.6) LVIDs (2D) 3.17 cm (2 - 3.8) LV FS (2D) 30.93 % - EF Teichholz (2D) 58.66 % - Ao root diameter (2D) 2.94 cm (2 - 3.7) Volumes/Mass Name Value Normal Range LA ESV SP 4CH (A/L) 72.82 ml - LA ESV SP 2CH (A/L) 66.86 ml - LA ESV BP (A/L) 74.49 ml - LA ESV SP 4CH (MOD) 71.03 ml - LA ESV SP 2CH (MOD) 64.3 ml - LV EDV SP 4CH (MOD) 98.82 ml - LV ESV SP 4CH (MOD) 24.8 ml - EF SP 4CH (MOD) 74.9 % - LV EDV SP 2CH (MOD) 86.1 ml - LV ESV SP 2CH (MOD) 36.93 ml - EF SP 2CH (MOD) 57.11 % - LV EDV BP 94.4 ml - LV ESV BP 32.66 ml - BP EF (MOD) 65.4 % - Diastolic/Systolic Function Name Value Normal Range MV E-wave Vmax 1.04 m/sec - MV deceleration time 160.46 msec - MV A-wave Vmax 0.92 m/sec - MV E:A ratio 1.14 ratio - Aortic Valve Name Value Normal Range AV Vmax 2.12 m/sec - AV VTI 22.37 cm - AV peak gradient 17.95 mmHg - AV mean gradient 7.29 mmHg - LVOT diameter 2.01 cm - LVOT Vmax 1.8 m/sec - LVOT VTI 27.17 cm - LVOT peak gradient 12.91 mmHg - LVOT mean gradient 6.83 mmHg - SV LVOT 86.42 ml - ANITA (continuity Vmax) 2.7 cm2 - ANITA (continuity VTI) 3.86 cm2 - Ascending Ao 3.18 cm - Tricuspid Valve Name Value Normal Range TV E-wave Vmax 0.88 m/sec - TR Vmax 3.01 m/sec - TR peak gradient 36.27 mmHg - RAP 8 mmHg - RVSP 44 mmHg - IVC diameter 2.65 cm (1.2 - 2.3) Pulmonic Valve/Qp:Qs Name Value Normal Range PV Vmax 1.22 m/sec - PV peak gradient 5.91 mmHg - RVOT Vmax 0.87 m/sec - RVOT VTI 13.32 cm - RVOT peak gradient 3 mmHg - PV acceleration time 110.37 msec - [place]/IV: Voiding Method Incontinent IV Catheter Type [Right Foot] INT / Saline Lock IV Catheter Type [Left Forearm Peripheral IV ] IV Catheter Type [Left Wrist] INT / Saline Lock IV Catheter Type [Right Hand] INT / Saline Lock IV Catheter Type [Right INT / Saline Lock Antecubital] IV Catheter Type [Right Upper Mid-line arm] IV Catheter Type [Left Triple Lumen Cath Internal Jugular] IV Catheter Type [Left Hand] Peripheral IV IV Catheter Type [Left Peripheral IV Antecubital] Active Medications - Current Medications Current Medications: Generic Name Dose Route Start Last Admin Trade Name Freq PRN Reason Stop Dose Admin Acetaminophen 650 mg 10/05/20 16:34 02/11/21 06:40 Acetaminophen 325 Mg/10.15 Ml Oral Liqd Unit Dose FEEDTUBE 650 mg Q6H PRN Administration Non Cardiac Pain or Temp>100.5 Albuterol 2.5 mg 11/05/20 13:03 11/06/20 13:04 Albuterol 2.5 Mg/3 Ml Nebu IH 2.5 mg Q4HRT PRN Administration Shortness Of Breath Alprazolam 0.25 mg 01/20/21 13:33 02/02/21 18:06 Alprazolam 0.25 Mg Tab PO 0.25 mg Q8H PRN Administration Anxiety Lipase/Protease/Amylase 1 each 10/05/20 11:09 Lipase 10,500/Protease 25,000/Amylase 43,750 (Units) Dr Barakat FEEDTUBE PRN PRN For Clogged Feeding Tube Enoxaparin Sodium 40 mg 10/22/20 10:00 02/11/21 09:01 Enoxaparin 40 Mg/0.4 Ml Inj SUB-Q 40 mg DAILY ERINN Administration Protocol Famotidine 20 mg 10/07/20 10:00 02/11/21 09:01 Famotidine 20 Mg Tab PO 20 mg BID ERINN Administration Hydralazine HCl 20 mg 10/07/20 11:49 10/17/20 07:20 Hydralazine 20 Mg/1 Ml Inj IV 20 mg Q6H PRN Administration SBP >170 Hydrophilic Ointment 1 applic 01/03/21 13:00 Lip Therapy Vaseline TP DIRECT PRN Dry Lips Dextrose 1,000 mls @ 30 mls/hr 01/03/21 12:00 02/09/21 03:16 D5w IV 30 mls/hr DIRECT ERINN Administration Levofloxacin/Dextrose 500 mg in 100 mls @ 100 mls/hr 02/08/21 14:00 02/11/21 14:03 Levaquin 500mg/100ml IV 100 mls/hr Q24H ERINN Administration Protocol Sodium Chloride 1,000 mls @ 999 mls/hr 02/11/21 14:09 Nacl 0.9% 1000 Ml IV 02/11/21 15:09 BOLUS ONE Metoprolol Tartrate 50 mg 02/02/21 16:01 02/11/21 09:01 Metoprolol Tartrate 25 Mg Tab PO 50 mg BID ERINN Administration Morphine Sulfate 2 mg 01/20/21 13:33 Morphine 2 Mg/1 Ml Inj IV Q4H PRN Pain, Moderate (4-6) Ondansetron HCl 4 mg 02/10/21 11:38 02/10/21 13:18 Ondansetron 4 Mg/2 Ml Inj IV 4 mg Q4H PRN Administration Nausea And Vomiting Simple Syrup 15 ml 10/05/20 11:09 Simple Syrup 15 Ml FEEDTUBE PRN PRN Hypoglycemia Simple Syrup 30 ml 10/05/20 11:09 Simple Syrup 15 Ml FEEDTUBE PRN PRN Hypoglycemia Sodium Bicarbonate 325 mg 10/05/20 11:09 12/16/20 08:19 Sodium Bicarbonate 325 Mg Tab FEEDTUBE 325 mg PRN PRN Administration For Clogged Feeding Tube Nutrition/Malnutrition Assess - Dietary Evaluation Nutrition/Malnutrition Findings: Nutrition Notes Start: 10/04/20 11:13 Freq: Status: Active Protocol: Document 02/10/21 10:11 (Rec: 02/10/21 10:15 [email or web address]) Nutrition Notes Initial or Follow up Reassessment Current Diagnosis Respiratory Failure Other Pertinent Diagnosis s/p cardiac arrest x 2, anoxic brain injury Current Diet Promote at 65ml/hr Labs/Tests 02/09: Na 133 Pertinent Medications Reviewed Height 5 ft 8 in Weight 97 kg [place] Body Weight (kg) 63.63 BMI 32.5 Weight Status Obese Subjective/Other Information FU for stable TF. Pt tolerating at goal rate. Percent of energy/protein needs met: 100%/98% Burn Absent Trauma Absent GI Symptoms None Difficulty In Swallowing,Chewing Food Allergy Yes Current % PO Negligible Minimum of two criteria Yes Interpretation of Weight Loss (severe) >2% in 1 week Fluid Accumulation Mild (non-severe) #2 Nutrition Diagnosis Malnutrition Diagnosis Progress(for reassessment Continues documentation) #1 Nutrition Diagnosis Inadequate oral intake Diagnosis Progress(for reassessment Continues documentation) Is patient on ventilator? No Is Patient Ambulatory and/or Out of Bed No REE-([facility]-confined to bed) 2076.108 Kcal/Kg value to use for calculation 16 Approximate Energy Requirements Using 1552 kcal/Kg Calculation Used for Recommendations [facility] Additional Notes Pro needs 1.25-1.5 g/kg adjBW: 100-120g/day Fluid needs 1ml/kcal Nutrition Intervention Change Diet Order: Continue Nutrition Support: Promote at 65 ml/hr Flush 50 ml q4h Kcal 1,560 Protein (gm) 98 Fluid (mL) 1,309 Goal #1 TF tolerance Goal #2 TF to meet at least 75% energy and pro needs Anticipated Discharge Needs: Promote at 65 ml/hr Flush 50 ml q4h Follow-Up By: 02/17/21 Additional Comments FU for stable TF
[2021-02-11 16:50] LABS: Basophils % (Auto) 0.4 % (0.0-1.8); Eosinophils # (Auto) 0.1 K/mm3 (0.0-0.4); Eosinophils % (Auto) 0.7 % (0.0-4.3); Hematocrit 37.7 % (30.3-42.9); Hemoglobin 12.2 gm/dl (10.1-14.3); Lymphocytes # (Auto) 1.4 K/mm3 (1.2-5.4); Lymphocytes % (Auto) 17.6 % (13.4-35.0); Mean Corpuscular HGB Conc 32 % (30-34); Mean Corpuscular Volume 74 fl (79-97); Monocytes # (Auto) 1.1 K/mm3 (0.0-0.8); Monocytes % (Auto) 13.2 % (0.0-7.3); Platelet Count 257 K/mm3 (140-440)
--- NOTE | 2021-02-11 16:55 | Progress Note ---
Assessment and Plan Imp: 1. Eclampsia w/ seizures s/p 2. S/p CP arrest 3. Encephalopathy, probably anoxic 4. Morbid obesity 5. DIC 6. ADOLPH 7. Acute respiratory failure, hypoxia 8. C.diff colitis 9. S/p Trach and inadvertent decannulation Rec: 1. Doing well after inadvertent decannulation, on RA, with no distress, and clear CXR; will monitor w/ you 2. TFs, DVT PPx 3. Supportive care 4. Defer management of ongoing fevers to primary team 5. Placement No family present Subjective Date of service: 02/11/21 Principal diagnosis: Eclampsia/HELLP Syndrome, ADOLPH, DIC; s/p , s/p supracervical hyst Interval history: No events. Eyes open. Cannot provide history. On RA w/ sat of 97%. Active Medications Acetaminophen (Acetaminophen 325 Mg/10.15 Ml Oral Liqd Unit Dose) 650 mg FEEDTUBE Q6H PRN PRN Reason: Non Cardiac Pain or Temp>100.5 Last Admin: 02/11/21 06:40 Dose: 650 mg Documented by: Albuterol (Albuterol 2.5 Mg/3 Ml Nebu) 2.5 mg IH Q4HRT PRN PRN Reason: Shortness Of Breath Last Admin: 11/06/20 13:04 Dose: 2.5 mg Documented by: Alprazolam (Alprazolam 0.25 Mg Tab) 0.25 mg PO Q8H PRN PRN Reason: Anxiety Last Admin: 02/02/21 18:06 Dose: 0.25 mg Documented by: Lipase/Protease/Amylase (Lipase 10,500/Protease 25,000/Amylase 43,750 (Units) Dr Barakat) 1 each FEEDTUBE PRN PRN PRN Reason: For Clogged Feeding Tube Enoxaparin Sodium (Enoxaparin 40 Mg/0.4 Ml Inj) 40 mg SUB-Q DAILY ERINN; Protocol Last Admin: 02/11/21 09:01 Dose: 40 mg Documented by: Famotidine (Famotidine 20 Mg Tab) 20 mg PO BID ERINN Last Admin: 02/11/21 09:01 Dose: 20 mg Documented by: Hydralazine HCl (Hydralazine 20 Mg/1 Ml Inj) 20 mg IV Q6H PRN PRN Reason: SBP >170 Last Admin: 01/02/21 07:20 Dose: 20 mg Documented by: Hydrophilic Ointment (Lip Therapy Vaseline) 1 applic TP DIRECT PRN PRN Reason: Dry Lips Dextrose (D5w) 1,000 mls @ 30 mls/hr IV DIRECT ERINN Last Admin: 02/09/21 03:16 Dose: 30 mls/hr Documented by: Levofloxacin/Dextrose (Levaquin 500mg/100ml) 500 mg in 100 mls @ 100 mls/hr IV Q24H ERINN; Protocol Last Admin: 02/11/21 14:03 Dose: 100 mls/hr Documented by: Metoprolol Tartrate (Metoprolol Tartrate 25 Mg Tab) 50 mg PO BID ERINN Last Admin: 02/11/21 09:01 Dose: 50 mg Documented by: Morphine Sulfate (Morphine 2 Mg/1 Ml Inj) 2 mg IV Q4H PRN PRN Reason: Pain, Moderate (4-6) Ondansetron HCl (Ondansetron 4 Mg/2 Ml Inj) 4 mg IV Q4H PRN PRN Reason: Nausea And Vomiting Last Admin: 02/10/21 13:18 Dose: 4 mg Documented by: Simple Syrup (Simple Syrup 15 Ml) 15 ml FEEDTUBE PRN PRN PRN Reason: Hypoglycemia Simple Syrup (Simple Syrup 15 Ml) 30 ml FEEDTUBE PRN PRN PRN Reason: Hypoglycemia Sodium Bicarbonate (Sodium Bicarbonate 325 Mg Tab) 325 mg FEEDTUBE PRN PRN PRN Reason: For Clogged Feeding Tube Last Admin: 12/16/20 08:19 Dose: 325 mg Documented by: Objective Vital Signs - 12hr 02/11/21 02/11/21 02/11/21 04:56 06:40 07:40 Temperature 102.4 F H 99.2 F Pulse Rate 126 H Respiratory 20 20 Rate Blood Pressure 105/63 O2 Sat by Pulse 97 Oximetry 02/11/21 09:01 Temperature Pulse Rate 126 H Respiratory Rate Blood Pressure 105/63 O2 Sat by Pulse Oximetry Constitutional: no acute distress, alert Eyes: non-icteric ENT: oropharynx moist Neck: other (large in cirumference) Effort: normal Ascultation: Bilateral: clear Cardiovascular: regular rate and rhythm, other (no mrg) Gastrointestinal: normoactive bowel sounds, soft Extremities: no cyanosis, pink and warm Neurologic: other (unresponsive, not following commands, not tracking) Psychiatric: mood appropriate, affect normal CBC and BMP: 02/09/21 10:59 02/09/21 10:59 ABG, PT/INR, D-dimer: ABG ABG pH 7.459 pH Units (7.350-7.450) H 10/26/20 10:30 POC ABG pCO2 20.7 mmHg (32.0-48.0) L 10/13/20 07:18 ABG pCO2 32.4 mm Hg 10/26/20 10:30 POC ABG pO2 137.9 mmHg (83-108) H 10/13/20 07:18 ABG pO2 112.2 mm Hg (80.0-90.0) H 10/26/20 10:30 POC ABG HCO3 14.8 10/13/20 07:18 ABG O2 Saturation 98.2 % (95.0-99.0) 10/26/20 10:30 PT/INR, D-dimer PT 13.6 Sec. (12.2-14.9) 10/21/20 13:54 INR 1.06 (0.87-1.13) 10/21/20 13:54 D-Dimer 1974.47 ng/mlDDU (0-234) H 11/11/20 13:50 Abnormal lab findings: Abnormal Labs 10/02/20 10/02/20 10/02/20 12:03 12:18 12:18 WBC 14.9 H RBC Hgb 9.1 L Hct MCV MCH 22 L MCHC 28 L RDW 17.6 H Plt Count 102 L Lymph % (Auto) [place] % (Auto) Lymph # (Auto) [place] # (Auto) Baso # (Auto) Seg Neutrophils % Seg Neuts % (Manual) 36.0 L Lymphocytes % (Manual) 49.0 H Monocytes % (Manual) Nucleated RBC % 6.0 H Seg Neutrophils # Seg Neutrophils # Man Lymphocytes # (Manual) 7.3 H Monocytes # (Manual) PT INR APTT Fibrinogen D-Dimer ABG pH POC ABG pCO2 POC ABG pO2 ABG pO2 ABG HCO3 ABG Base Excess ABG Hemoglobin ABG Oxyhemoglobin ABG Sodium ABG Potassium ABG Chloride ABG Glucose VBG pH Oxyhemoglobin Carboxyhemoglobin Sodium 134 L Potassium Chloride Carbon Dioxide 12 L BUN 6 L Creatinine Glucose 390 H POC Glucose 451 H Random Insulin C-Peptide Lactic Acid Calcium Ionized Calcium Phosphorus Magnesium AST 135 H ALT 85 H Alkaline Phosphatase 172 H Lactate Dehydrogenase 641 H NT-Pro-B Natriuret Pep Total Protein 5.4 L Albumin 2.3 L Arterial Blood Glucose Arterial Blood Ionized Calcium Urine pH Urine WBC (Auto) U Epithel Cells (Auto) Vancomycin Trough Phenytoin Crossmatch 10/02/20 10/02/20 10/02/20 12:50 13:05 13:05 WBC 38.6 H RBC Hgb 8.9 L Hct 29.0 L MCV 73 L MCH 22 L MCHC RDW 17.2 H Plt Count Lymph % (Auto) [place] % (Auto) Lymph # (Auto) [place] # (Auto) Baso # (Auto) Seg Neutrophils % Seg Neuts % (Manual) Lymphocytes % (Manual) Monocytes % (Manual) Nucleated RBC % 2.0 H Seg Neutrophils # Seg Neutrophils # Man 20.1 H Lymphocytes # (Manual) 10.4 H Monocytes # (Manual) 2.3 H PT INR APTT Fibrinogen D-Dimer ABG pH POC ABG pCO2 POC ABG pO2 ABG pO2 ABG HCO3 ABG Base Excess ABG Hemoglobin ABG Oxyhemoglobin ABG Sodium ABG Potassium ABG Chloride ABG Glucose VBG pH Oxyhemoglobin Carboxyhemoglobin Sodium Potassium Chloride Carbon Dioxide BUN Creatinine Glucose POC Glucose Random Insulin C-Peptide Lactic Acid Calcium Ionized Calcium Phosphorus Magnesium AST 184 H ALT 113 H Alkaline Phosphatase Lactate Dehydrogenase 769 H NT-Pro-B Natriuret Pep Total Protein Albumin Arterial Blood Glucose Arterial Blood Ionized Calcium Urine pH Urine WBC (Auto) U Epithel Cells (Auto) Vancomycin Trough Phenytoin Crossmatch See Detail 10/02/20 10/02/20 10/02/20 16:25 16:35 16:35 WBC RBC Hgb Hct MCV MCH MCHC RDW Plt Count Lymph % (Auto) [place] % (Auto) Lymph # (Auto) [place] # (Auto) Baso # (Auto) Seg Neutrophils % Seg Neuts % (Manual) Lymphocytes % (Manual) Monocytes % (Manual) Nucleated RBC % Seg Neutrophils # Seg Neutrophils # Man Lymphocytes # (Manual) Monocytes # (Manual) PT INR APTT Fibrinogen D-Dimer ABG pH 7.031 L* POC ABG pCO2 POC ABG pO2 ABG pO2 116.8 H ABG HCO3 12.7 L ABG Base Excess -16.9 L ABG Hemoglobin 7.8 L ABG Oxyhemoglobin ABG Sodium ABG Potassium ABG Chloride ABG Glucose VBG pH Oxyhemoglobin 94.9 L Carboxyhemoglobin Sodium Potassium Chloride Carbon Dioxide BUN Creatinine Glucose 403 H POC Glucose Random Insulin C-Peptide Lactic Acid 11.40 H* Calcium 6.3 L D Ionized Calcium Phosphorus Magnesium AST 70 H ALT Alkaline Phosphatase Lactate Dehydrogenase NT-Pro-B Natriuret Pep Total Protein 1.9 L D Albumin 1.2 L Arterial Blood Glucose Arterial Blood Ionized Calcium Urine pH Urine WBC (Auto) U Epithel Cells (Auto) Vancomycin Trough Phenytoin Crossmatch 10/02/20 10/02/20 10/02/20 18:18 18:18 22:30 WBC 11.5 H RBC 2.06 L Hgb 5.5 L* D Hct 17.3 L* D MCV MCH 27 L MCHC RDW 19.5 H Plt Count 60 L Lymph % (Auto) [place] % (Auto) Lymph # (Auto) [place] # (Auto) Baso # (Auto) Seg Neutrophils % Seg Neuts % (Manual) Lymphocytes % (Manual) 8.0 L Monocytes % (Manual) 8.0 H Nucleated RBC % 8.0 H Seg Neutrophils # Seg Neutrophils # Man Lymphocytes # (Manual) 0.9 L Monocytes # (Manual) 0.9 H PT 37.1 H INR 3.71 H APTT 135.8 H* Fibrinogen D-Dimer ABG pH 7.067 L* POC ABG pCO2 POC ABG pO2 ABG pO2 183.0 H ABG HCO3 14.1 L ABG Base Excess -15.1 L ABG Hemoglobin 7.7 L ABG Oxyhemoglobin ABG Sodium ABG Potassium ABG Chloride ABG Glucose VBG pH Oxyhemoglobin Carboxyhemoglobin Sodium Potassium Chloride Carbon Dioxide BUN Creatinine Glucose POC Glucose Random Insulin C-Peptide Lactic Acid Calcium Ionized Calcium Phosphorus Magnesium AST ALT Alkaline Phosphatase Lactate Dehydrogenase NT-Pro-B Natriuret Pep Total Protein Albumin Arterial Blood Glucose Arterial Blood Ionized Calcium Urine pH Urine WBC (Auto) U Epithel Cells (Auto) Vancomycin Trough Phenytoin Crossmatch 10/02/20 10/02/20 10/03/20 Unknown Unknown 00:01 WBC RBC Hgb Hct MCV MCH MCHC RDW Plt Count Lymph % (Auto) [place] % (Auto) Lymph # (Auto) [place] # (Auto) Baso # (Auto) Seg Neutrophils % Seg Neuts % (Manual) Lymphocytes % (Manual) Monocytes % (Manual) Nucleated RBC % Seg Neutrophils # Seg Neutrophils # Man Lymphocytes # (Manual) Monocytes # (Manual) PT 61.1 H INR 6.92 H* APTT 158.7 H* Fibrinogen < 60 L* D-Dimer > 16355 H ABG pH POC ABG pCO2 POC ABG pO2 ABG pO2 ABG HCO3 ABG Base Excess ABG Hemoglobin ABG Oxyhemoglobin ABG Sodium ABG Potassium ABG Chloride ABG Glucose VBG pH 6.949 L* Oxyhemoglobin Carboxyhemoglobin Sodium Potassium Chloride Carbon Dioxide BUN Creatinine Glucose POC Glucose 196 H Random Insulin C-Peptide Lactic Acid Calcium Ionized Calcium Phosphorus Magnesium AST ALT Alkaline Phosphatase Lactate Dehydrogenase NT-Pro-B Natriuret Pep Total Protein Albumin Arterial Blood Glucose Arterial Blood Ionized Calcium Urine pH Urine WBC (Auto) U Epithel Cells (Auto) Vancomycin Trough Phenytoin Crossmatch 10/03/20 10/03/20 10/03/20 00:40 00:40 00:40 WBC RBC Hgb Hct MCV MCH MCHC RDW Plt Count Lymph % (Auto) [place] % (Auto) Lymph # (Auto) [place] # (Auto) Baso # (Auto) Seg Neutrophils % Seg Neuts % (Manual) Lymphocytes % (Manual) Monocytes % (Manual) Nucleated RBC % Seg Neutrophils # Seg Neutrophils # Man Lymphocytes # (Manual) Monocytes # (Manual) PT 15.1 H INR 1.21 H APTT Fibrinogen D-Dimer ABG pH POC ABG pCO2 POC ABG pO2 ABG pO2 ABG HCO3 ABG Base Excess ABG Hemoglobin ABG Oxyhemoglobin ABG Sodium ABG Potassium ABG Chloride ABG Glucose VBG pH Oxyhemoglobin Carboxyhemoglobin Sodium 136 L Potassium Chloride Carbon Dioxide BUN Creatinine 1.6 H D Glucose 106 H POC Glucose Random Insulin C-Peptide Lactic Acid 5.60 H* Calcium 6.5 L Ionized Calcium Phosphorus Magnesium AST 232 H ALT 104 H Alkaline Phosphatase Lactate Dehydrogenase NT-Pro-B Natriuret Pep Total Protein 3.9 L D Albumin 2.4 L Arterial Blood Glucose Arterial Blood Ionized Calcium Urine pH Urine WBC (Auto) U Epithel Cells (Auto) Vancomycin Trough Phenytoin Crossmatch 10/03/20 10/03/20 10/03/20 02:08 02:08 02:08 WBC 17.6 H RBC 3.27 L Hgb 9.9 L D Hct 29.9 L D MCV MCH MCHC RDW 16.5 H Plt Count 75 L Lymph % (Auto) [place] % (Auto) Lymph # (Auto) [place] # (Auto) Baso # (Auto) Seg Neutrophils % Seg Neuts % (Manual) 76.0 H Lymphocytes % (Manual) Monocytes % (Manual) Nucleated RBC % 8.0 H Seg Neutrophils # Seg Neutrophils # Man 13.4 H Lymphocytes # (Manual) Monocytes # (Manual) PT INR APTT Fibrinogen D-Dimer ABG pH POC ABG pCO2 POC ABG pO2 ABG pO2 ABG HCO3 ABG Base Excess ABG Hemoglobin ABG Oxyhemoglobin ABG Sodium ABG Potassium ABG Chloride ABG Glucose VBG pH Oxyhemoglobin Carboxyhemoglobin Sodium Potassium Chloride Carbon Dioxide 19 L BUN Creatinine 1.4 H Glucose 306 H POC Glucose Random Insulin C-Peptide Lactic Acid 10.50 H* Calcium 6.4 L Ionized Calcium Phosphorus Magnesium AST ALT Alkaline Phosphatase Lactate Dehydrogenase NT-Pro-B Natriuret Pep Total Protein Albumin Arterial Blood Glucose Arterial Blood Ionized Calcium Urine pH Urine WBC (Auto) U Epithel Cells (Auto) Vancomycin Trough Phenytoin Crossmatch 10/03/20 10/03/20 10/03/20 02:42 03:59 05:31 WBC RBC Hgb Hct MCV MCH MCHC RDW Plt Count Lymph % (Auto) [place] % (Auto) Lymph # (Auto) [place] # (Auto) Baso # (Auto) Seg Neutrophils % Seg Neuts % (Manual) Lymphocytes % (Manual) Monocytes % (Manual) Nucleated RBC % Seg Neutrophils # Seg Neutrophils # Man Lymphocytes # (Manual) Monocytes # (Manual) PT INR APTT Fibrinogen D-Dimer ABG pH 7.144 L POC ABG pCO2 54.4 H POC ABG pO2 ABG pO2 ABG HCO3 ABG Base Excess ABG Hemoglobin 10.0 L ABG Oxyhemoglobin ABG Sodium ABG Potassium ABG Chloride 108.0 H ABG Glucose 306 H VBG pH Oxyhemoglobin Carboxyhemoglobin Sodium Potassium Chloride Carbon Dioxide BUN Creatinine Glucose POC Glucose 209 H Random Insulin C-Peptide Lactic Acid 9.20 H* Calcium Ionized Calcium Phosphorus Magnesium AST ALT Alkaline Phosphatase Lactate Dehydrogenase NT-Pro-B Natriuret Pep Total Protein Albumin Arterial Blood Glucose 306 H Arterial Blood Ionized Calcium 3.7 L Urine pH Urine WBC (Auto) U Epithel Cells (Auto) Vancomycin Trough Phenytoin Crossmatch 10/03/20 10/03/20 10/03/20 09:00 09:00 09:00 WBC 27.4 H RBC 2.84 L Hgb 8.5 L Hct 25.1 L MCV MCH MCHC RDW 16.1 H Plt Count 72 L Lymph % (Auto) [place] % (Auto) Lymph # (Auto) [place] # (Auto) Baso # (Auto) Seg Neutrophils % Seg Neuts % (Manual) Lymphocytes % (Manual) 11.0 L Monocytes % (Manual) Nucleated RBC % 3.0 H Seg Neutrophils # Seg Neutrophils # Man 18.4 H Lymphocytes # (Manual) Monocytes # (Manual) 1.9 H PT INR APTT Fibrinogen D-Dimer ABG pH POC ABG pCO2 POC ABG pO2 ABG pO2 ABG HCO3 ABG Base Excess ABG Hemoglobin ABG Oxyhemoglobin ABG Sodium ABG Potassium ABG Chloride ABG Glucose VBG pH Oxyhemoglobin Carboxyhemoglobin Sodium Potassium Chloride Carbon Dioxide BUN Creatinine 1.7 H Glucose 216 H POC Glucose Random Insulin C-Peptide Lactic Acid 9.20 H* Calcium 6.3 L Ionized Calcium Phosphorus Magnesium AST 331 H ALT 171 H Alkaline Phosphatase Lactate Dehydrogenase NT-Pro-B Natriuret Pep Total Protein 3.7 L Albumin 1.9 L Arterial Blood Glucose Arterial Blood Ionized Calcium Urine pH Urine WBC (Auto) U Epithel Cells (Auto) Vancomycin Trough Phenytoin Crossmatch 10/03/20 10/03/20 10/03/20 11:20 11:46 11:50 WBC 28.7 H RBC 2.67 L Hgb 8.0 L Hct 23.7 L MCV MCH MCHC RDW 16.6 H Plt Count 76 L Lymph % (Auto) [place] % (Auto) Lymph # (Auto) [place] # (Auto) Baso # (Auto) Seg Neutrophils % Seg Neuts % (Manual) Lymphocytes % (Manual) Monocytes % (Manual) Nucleated RBC % Seg Neutrophils # Seg Neutrophils # Man Lymphocytes # (Manual) Monocytes # (Manual) PT INR APTT Fibrinogen D-Dimer ABG pH POC ABG pCO2 POC ABG pO2 ABG pO2 ABG HCO3 ABG Base Excess ABG Hemoglobin ABG Oxyhemoglobin ABG Sodium ABG Potassium ABG Chloride ABG Glucose VBG pH Oxyhemoglobin Carboxyhemoglobin Sodium Potassium Chloride Carbon Dioxide BUN Creatinine Glucose POC Glucose 125 H Random Insulin C-Peptide Lactic Acid 8.00 H* Calcium Ionized Calcium Phosphorus Magnesium AST ALT Alkaline Phosphatase Lactate Dehydrogenase NT-Pro-B Natriuret Pep Total Protein Albumin Arterial Blood Glucose Arterial Blood Ionized Calcium Urine pH Urine WBC (Auto) U Epithel Cells (Auto) Vancomycin Trough Phenytoin Crossmatch 10/03/20 10/04/20 10/04/20 11:50 00:40 00:40 WBC RBC Hgb 6.8 L Hct 19.4 L* MCV MCH MCHC RDW Plt Count 49 L Lymph % (Auto) [place] % (Auto) Lymph # (Auto) [place] # (Auto) Baso # (Auto) Seg Neutrophils % Seg Neuts % (Manual) Lymphocytes % (Manual) Monocytes % (Manual) Nucleated RBC % Seg Neutrophils # Seg Neutrophils # Man Lymphocytes # (Manual) Monocytes # (Manual) PT INR APTT Fibrinogen D-Dimer ABG pH 7.244 L POC ABG pCO2 POC ABG pO2 ABG pO2 ABG HCO3 ABG Base Excess -4.5 L ABG Hemoglobin 7.3 L ABG Oxyhemoglobin ABG Sodium ABG Potassium ABG Chloride ABG Glucose VBG pH Oxyhemoglobin Carboxyhemoglobin Sodium Potassium Chloride Carbon Dioxide BUN Creatinine Glucose POC Glucose Random Insulin C-Peptide Lactic Acid Calcium Ionized Calcium Phosphorus Magnesium AST ALT Alkaline Phosphatase Lactate Dehydrogenase NT-Pro-B Natriuret Pep Total Protein Albumin Arterial Blood Glucose Arterial Blood Ionized Calcium Urine pH Urine WBC (Auto) U Epithel Cells (Auto) Vancomycin Trough Phenytoin Crossmatch 10/04/20 10/04/20 10/04/20 03:53 10:00 10:00 WBC 14.6 H RBC 2.57 L Hgb 7.6 L Hct 22.5 L MCV MCH MCHC RDW 15.8 H Plt Count 38 L Lymph % (Auto) 7.7 L [place] % (Auto) Lymph # (Auto) 1.1 L [place] # (Auto) 0.9 H Baso # (Auto) Seg Neutrophils % 85.6 H Seg Neuts % (Manual) Lymphocytes % (Manual) Monocytes % (Manual) Nucleated RBC % Seg Neutrophils # 12.5 H Seg Neutrophils # Man Lymphocytes # (Manual) Monocytes # (Manual) PT INR APTT Fibrinogen D-Dimer ABG pH POC ABG pCO2 POC ABG pO2 110.6 H ABG pO2 ABG HCO3 ABG Base Excess ABG Hemoglobin 6.7 L ABG Oxyhemoglobin ABG Sodium 132.0 L ABG Potassium ABG Chloride ABG Glucose 111 H VBG pH Oxyhemoglobin Carboxyhemoglobin Sodium 134 L D Potassium Chloride 97.6 L Carbon Dioxide BUN Creatinine 1.7 H Glucose POC Glucose Random Insulin C-Peptide Lactic Acid Calcium 6.3 L Ionized Calcium Phosphorus Magnesium AST 203 H ALT 81 H Alkaline Phosphatase Lactate Dehydrogenase NT-Pro-B Natriuret Pep Total Protein 3.9 L Albumin 2.3 L Arterial Blood Glucose 111 H Arterial Blood Ionized Calcium 3.5 L Urine pH Urine WBC (Auto) U Epithel Cells (Auto) Vancomycin Trough Phenytoin Crossmatch 10/04/20 10/04/20 10/04/20 10:00 10:00 10:14 WBC RBC Hgb Hct MCV MCH MCHC RDW Plt Count Lymph % (Auto) [place] % (Auto) Lymph # (Auto) [place] # (Auto) Baso # (Auto) Seg Neutrophils % Seg Neuts % (Manual) Lymphocytes % (Manual) Monocytes % (Manual) Nucleated RBC % Seg Neutrophils # Seg Neutrophils # Man Lymphocytes # (Manual) Monocytes # (Manual) PT INR APTT Fibrinogen D-Dimer > 61933 H ABG pH POC ABG pCO2 POC ABG pO2 ABG pO2 ABG HCO3 ABG Base Excess ABG Hemoglobin ABG Oxyhemoglobin ABG Sodium ABG Potassium ABG Chloride ABG Glucose VBG pH Oxyhemoglobin Carboxyhemoglobin Sodium Potassium Chloride Carbon Dioxide BUN Creatinine Glucose POC Glucose Random Insulin C-Peptide Lactic Acid 3.90 H* Calcium Ionized Calcium Phosphorus Magnesium AST ALT Alkaline Phosphatase Lactate Dehydrogenase NT-Pro-B Natriuret Pep 2788 H Total Protein Albumin Arterial Blood Glucose Arterial Blood Ionized Calcium Urine pH Urine WBC (Auto) U Epithel Cells (Auto) Vancomycin Trough Phenytoin Crossmatch 10/04/20 10/04/20 10/04/20 14:00 14:00 18:00 WBC 15.7 H RBC 3.17 L Hgb 9.3 L 9.6 L Hct 27.2 L 28.0 L MCV MCH MCHC RDW 16.9 H Plt Count 41 L Lymph % (Auto) 8.6 L [place] % (Auto) Lymph # (Auto) [place] # (Auto) 0.9 H Baso # (Auto) Seg Neutrophils % 85.4 H Seg Neuts % (Manual) Lymphocytes % (Manual) Monocytes % (Manual) Nucleated RBC % Seg Neutrophils # 13.4 H Seg Neutrophils # Man Lymphocytes # (Manual) Monocytes # (Manual) PT INR APTT Fibrinogen D-Dimer ABG pH POC ABG pCO2 POC ABG pO2 ABG pO2 ABG HCO3 ABG Base Excess ABG Hemoglobin ABG Oxyhemoglobin ABG Sodium ABG Potassium ABG Chloride ABG Glucose VBG pH Oxyhemoglobin Carboxyhemoglobin Sodium 133 L Potassium Chloride 96.4 L Carbon Dioxide BUN 18 H Creatinine 1.7 H Glucose POC Glucose Random Insulin C-Peptide Lactic Acid Calcium 6.3 L Ionized Calcium Phosphorus Magnesium AST ALT Alkaline Phosphatase Lactate Dehydrogenase NT-Pro-B Natriuret Pep Total Protein Albumin Arterial Blood Glucose Arterial Blood Ionized Calcium Urine pH Urine WBC (Auto) U Epithel Cells (Auto) Vancomycin Trough Phenytoin Crossmatch 10/04/20 10/04/20 10/05/20 18:00 22:00 05:00 WBC 17.6 H RBC 3.34 L Hgb 9.9 L Hct 29.4 L MCV MCH MCHC RDW 17.1 H Plt Count 56 L Lymph % (Auto) 8.5 L [place] % (Auto) Lymph # (Auto) [place] # (Auto) 1.0 H Baso # (Auto) Seg Neutrophils % 85.1 H Seg Neuts % (Manual) Lymphocytes % (Manual) Monocytes % (Manual) Nucleated RBC % Seg Neutrophils # 15.0 H Seg Neutrophils # Man Lymphocytes # (Manual) Monocytes # (Manual) PT INR APTT Fibrinogen D-Dimer ABG pH POC ABG pCO2 POC ABG pO2 ABG pO2 ABG HCO3 ABG Base Excess ABG Hemoglobin ABG Oxyhemoglobin ABG Sodium ABG Potassium ABG Chloride ABG Glucose VBG pH Oxyhemoglobin Carboxyhemoglobin Sodium 136 L Potassium Chloride Carbon Dioxide BUN 18 H Creatinine 1.7 H Glucose POC Glucose Random Insulin C-Peptide Lactic Acid 2.30 H* Calcium 6.6 L Ionized Calcium Phosphorus Magnesium AST ALT Alkaline Phosphatase Lactate Dehydrogenase NT-Pro-B Natriuret Pep Total Protein Albumin Arterial Blood Glucose Arterial Blood Ionized Calcium Urine pH Urine WBC (Auto) U Epithel Cells (Auto) Vancomycin Trough Phenytoin Crossmatch 10/05/20 10/05/20 10/05/20 05:00 05:00 05:03 WBC RBC Hgb Hct MCV MCH MCHC RDW Plt Count Lymph % (Auto) [place] % (Auto) Lymph # (Auto) [place] # (Auto) Baso # (Auto) Seg Neutrophils % Seg Neuts % (Manual) Lymphocytes % (Manual) Monocytes % (Manual) Nucleated RBC % Seg Neutrophils # Seg Neutrophils # Man Lymphocytes # (Manual) Monocytes # (Manual) PT INR APTT Fibrinogen D-Dimer ABG pH 7.458 H POC ABG pCO2 POC ABG pO2 ABG pO2 74.3 L ABG HCO3 27.5 H ABG Base Excess 3.4 H ABG Hemoglobin 10.0 L ABG Oxyhemoglobin ABG Sodium ABG Potassium ABG Chloride ABG Glucose VBG pH Oxyhemoglobin 94.9 L Carboxyhemoglobin Sodium Potassium Chloride Carbon Dioxide BUN 19 H Creatinine 1.8 H Glucose POC Glucose Random Insulin C-Peptide Lactic Acid Calcium 6.8 L Ionized Calcium 3.9 L Phosphorus Magnesium AST 225 H ALT 85 H Alkaline Phosphatase Lactate Dehydrogenase NT-Pro-B Natriuret Pep Total Protein 4.5 L Albumin 2.7 L Arterial Blood Glucose Arterial Blood Ionized Calcium Urine pH Urine WBC (Auto) U Epithel Cells (Auto) Vancomycin Trough Phenytoin Crossmatch 10/05/20 10/05/20 10/05/20 10:10 15:00 19:40 WBC RBC Hgb Hct MCV MCH MCHC RDW Plt Count Lymph % (Auto) [place] % (Auto) Lymph # (Auto) [place] # (Auto) Baso # (Auto) Seg Neutrophils % Seg Neuts % (Manual) Lymphocytes % (Manual) Monocytes % (Manual) Nucleated RBC % Seg Neutrophils # Seg Neutrophils # Man Lymphocytes # (Manual) Monocytes # (Manual) PT INR APTT Fibrinogen D-Dimer ABG pH POC ABG pCO2 POC ABG pO2 ABG pO2 ABG HCO3 ABG Base Excess ABG Hemoglobin ABG Oxyhemoglobin ABG Sodium ABG Potassium ABG Chloride ABG Glucose VBG pH Oxyhemoglobin Carboxyhemoglobin Sodium Potassium 3.5 L Chloride Carbon Dioxide 31 H 32 H BUN 19 H 19 H Creatinine 1.8 H 1.8 H Glucose POC Glucose Random Insulin C-Peptide Lactic Acid Calcium 7.0 L 7.2 L Ionized Calcium Phosphorus Magnesium 2.90 H AST ALT Alkaline Phosphatase Lactate Dehydrogenase NT-Pro-B Natriuret Pep Total Protein Albumin Arterial Blood Glucose Arterial Blood Ionized Calcium Urine pH Urine WBC (Auto) U Epithel Cells (Auto) Vancomycin Trough Phenytoin Crossmatch 10/06/20 10/06/20 10/06/20 01:05 03:12 04:00 WBC 17.1 H RBC 3.47 L Hgb Hct MCV MCH MCHC RDW 17.4 H Plt Count 82 L Lymph % (Auto) 8.3 L [place] % (Auto) Lymph # (Auto) [place] # (Auto) 1.1 H Baso # (Auto) Seg Neutrophils % 83.8 H Seg Neuts % (Manual) Lymphocytes % (Manual) Monocytes % (Manual) Nucleated RBC % Seg Neutrophils # 14.3 H Seg Neutrophils # Man Lymphocytes # (Manual) Monocytes # (Manual) PT INR APTT Fibrinogen D-Dimer ABG pH 7.474 H POC ABG pCO2 POC ABG pO2 129.5 H ABG pO2 ABG HCO3 ABG Base Excess ABG Hemoglobin 11.4 L ABG Oxyhemoglobin ABG Sodium 131.8 L ABG Potassium ABG Chloride ABG Glucose 103 H VBG pH Oxyhemoglobin Carboxyhemoglobin 0.3 L Sodium Potassium Chloride Carbon Dioxide BUN Creatinine Glucose POC Glucose Random Insulin C-Peptide Lactic Acid Calcium Ionized Calcium Phosphorus Magnesium 3.70 H AST ALT Alkaline Phosphatase Lactate Dehydrogenase NT-Pro-B Natriuret Pep Total Protein Albumin Arterial Blood Glucose 103 H Arterial Blood Ionized Calcium 4.2 L Urine pH Urine WBC (Auto) U Epithel Cells (Auto) Vancomycin Trough Phenytoin Crossmatch 10/06/20 10/06/20 10/06/20 04:00 05:31 08:12 WBC RBC Hgb Hct MCV MCH MCHC RDW Plt Count Lymph % (Auto) [place] % (Auto) Lymph # (Auto) [place] # (Auto) Baso # (Auto) Seg Neutrophils % Seg Neuts % (Manual) Lymphocytes % (Manual) Monocytes % (Manual) Nucleated RBC % Seg Neutrophils # Seg Neutrophils # Man Lymphocytes # (Manual) Monocytes # (Manual) PT INR APTT Fibrinogen D-Dimer ABG pH POC ABG pCO2 POC ABG pO2 ABG pO2 ABG HCO3 ABG Base Excess ABG Hemoglobin ABG Oxyhemoglobin ABG Sodium ABG Potassium ABG Chloride ABG Glucose VBG pH Oxyhemoglobin Carboxyhemoglobin Sodium Potassium 3.5 L Chloride Carbon Dioxide BUN 19 H Creatinine 1.8 H Glucose 102 H POC Glucose 116 H Random Insulin C-Peptide Lactic Acid Calcium 7.2 L Ionized Calcium Phosphorus Magnesium 5.40 H AST 307 H ALT 137 H Alkaline Phosphatase Lactate Dehydrogenase NT-Pro-B Natriuret Pep Total Protein 4.5 L Albumin 2.6 L Arterial Blood Glucose Arterial Blood Ionized Calcium Urine pH Urine WBC (Auto) U Epithel Cells (Auto) Vancomycin Trough Phenytoin Crossmatch 10/06/20 10/06/20 10/06/20 11:00 11:50 20:13 WBC RBC Hgb Hct MCV MCH MCHC RDW Plt Count Lymph % (Auto) [place] % (Auto) Lymph # (Auto) [place] # (Auto) Baso # (Auto) Seg Neutrophils % Seg Neuts % (Manual) Lymphocytes % (Manual) Monocytes % (Manual) Nucleated RBC % Seg Neutrophils # Seg Neutrophils # Man Lymphocytes # (Manual) Monocytes # (Manual) PT INR APTT Fibrinogen D-Dimer ABG pH POC ABG pCO2 POC ABG pO2 ABG pO2 ABG HCO3 ABG Base Excess ABG Hemoglobin ABG Oxyhemoglobin ABG Sodium ABG Potassium ABG Chloride ABG Glucose VBG pH Oxyhemoglobin Carboxyhemoglobin Sodium Potassium Chloride Carbon Dioxide BUN Creatinine Glucose POC Glucose 106 H Random Insulin C-Peptide Lactic Acid Calcium Ionized Calcium Phosphorus Magnesium 6.50 H 6.20 H AST ALT Alkaline Phosphatase Lactate Dehydrogenase NT-Pro-B Natriuret Pep Total Protein Albumin Arterial Blood Glucose Arterial Blood Ionized Calcium Urine pH Urine WBC (Auto) U Epithel Cells (Auto) Vancomycin Trough Phenytoin Crossmatch 10/06/20 10/06/20 10/06/20 20:17 22:29 23:57 WBC RBC Hgb Hct MCV MCH MCHC RDW Plt Count Lymph % (Auto) [place] % (Auto) Lymph # (Auto) [place] # (Auto) Baso # (Auto) Seg Neutrophils % Seg Neuts % (Manual) Lymphocytes % (Manual) Monocytes % (Manual) Nucleated RBC % Seg Neutrophils # Seg Neutrophils # Man Lymphocytes # (Manual) Monocytes # (Manual) PT INR APTT Fibrinogen D-Dimer ABG pH POC ABG pCO2 POC ABG pO2 ABG pO2 ABG HCO3 ABG Base Excess ABG Hemoglobin ABG Oxyhemoglobin ABG Sodium ABG Potassium ABG Chloride ABG Glucose VBG pH Oxyhemoglobin Carboxyhemoglobin Sodium Potassium Chloride Carbon Dioxide BUN Creatinine Glucose POC Glucose 112 H 126 H 133 H Random Insulin C-Peptide Lactic Acid Calcium Ionized Calcium Phosphorus Magnesium AST ALT Alkaline Phosphatase Lactate Dehydrogenase NT-Pro-B Natriuret Pep Total Protein Albumin Arterial Blood Glucose Arterial Blood Ionized Calcium Urine pH Urine WBC (Auto) U Epithel Cells (Auto) Vancomycin Trough Phenytoin Crossmatch 10/07/20 10/07/20 10/07/20 00:35 02:22 03:16 WBC RBC Hgb Hct MCV MCH MCHC RDW Plt Count Lymph % (Auto) [place] % (Auto) Lymph # (Auto) [place] # (Auto) Baso # (Auto) Seg Neutrophils % Seg Neuts % (Manual) Lymphocytes % (Manual) Monocytes % (Manual) Nucleated RBC % Seg Neutrophils # Seg Neutrophils # Man Lymphocytes # (Manual) Monocytes # (Manual) PT INR APTT Fibrinogen D-Dimer ABG pH POC ABG pCO2 POC ABG pO2 ABG pO2 ABG HCO3 ABG Base Excess ABG Hemoglobin 11.6 L ABG Oxyhemoglobin ABG Sodium ABG Potassium ABG Chloride ABG Glucose 156 H VBG pH Oxyhemoglobin Carboxyhemoglobin 0.3 L Sodium Potassium Chloride Carbon Dioxide BUN Creatinine Glucose POC Glucose 124 H Random Insulin C-Peptide Lactic Acid Calcium Ionized Calcium Phosphorus Magnesium 5.90 H AST ALT Alkaline Phosphatase Lactate Dehydrogenase NT-Pro-B Natriuret Pep Total Protein Albumin Arterial Blood Glucose 156 H Arterial Blood Ionized Calcium 4.2 L Urine pH Urine WBC (Auto) U Epithel Cells (Auto) Vancomycin Trough Phenytoin Crossmatch 10/07/20 10/07/20 10/07/20 04:06 05:45 07:05 WBC 19.2 H RBC 3.57 L Hgb Hct MCV MCH MCHC 35 H RDW 17.1 H Plt Count 129 L Lymph % (Auto) [place] % (Auto) Lymph # (Auto) [place] # (Auto) Baso # (Auto) Seg Neutrophils % Seg Neuts % (Manual) 94.0 H Lymphocytes % (Manual) 6.0 L Monocytes % (Manual) Nucleated RBC % Seg Neutrophils # Seg Neutrophils # Man 18.0 H Lymphocytes # (Manual) Monocytes # (Manual) PT INR APTT Fibrinogen D-Dimer ABG pH POC ABG pCO2 POC ABG pO2 ABG pO2 ABG HCO3 ABG Base Excess ABG Hemoglobin ABG Oxyhemoglobin ABG Sodium ABG Potassium ABG Chloride ABG Glucose VBG pH Oxyhemoglobin Carboxyhemoglobin Sodium Potassium Chloride Carbon Dioxide BUN Creatinine Glucose POC Glucose 135 H 149 H Random Insulin C-Peptide Lactic Acid Calcium Ionized Calcium Phosphorus Magnesium AST ALT Alkaline Phosphatase Lactate Dehydrogenase NT-Pro-B Natriuret Pep Total Protein Albumin Arterial Blood Glucose Arterial Blood Ionized Calcium Urine pH Urine WBC (Auto) U Epithel Cells (Auto) Vancomycin Trough Phenytoin Crossmatch 10/07/20 10/07/20 10/07/20 07:05 07:05 12:21 WBC RBC Hgb Hct MCV MCH MCHC RDW Plt Count Lymph % (Auto) [place] % (Auto) Lymph # (Auto) [place] # (Auto) Baso # (Auto) Seg Neutrophils % Seg Neuts % (Manual) Lymphocytes % (Manual) Monocytes % (Manual) Nucleated RBC % Seg Neutrophils # Seg Neutrophils # Man Lymphocytes # (Manual) Monocytes # (Manual) PT INR APTT Fibrinogen D-Dimer ABG pH POC ABG pCO2 POC ABG pO2 ABG pO2 ABG HCO3 ABG Base Excess ABG Hemoglobin ABG Oxyhemoglobin ABG Sodium ABG Potassium ABG Chloride ABG Glucose VBG pH Oxyhemoglobin Carboxyhemoglobin Sodium Potassium Chloride Carbon Dioxide BUN 21 H Creatinine 1.7 H Glucose 171 H POC Glucose 124 H Random Insulin C-Peptide Lactic Acid Calcium 7.4 L Ionized Calcium Phosphorus Magnesium 6.10 H AST 245 H ALT 147 H Alkaline Phosphatase Lactate Dehydrogenase NT-Pro-B Natriuret Pep Total Protein 5.3 L Albumin 2.8 L Arterial Blood Glucose Arterial Blood Ionized Calcium Urine pH Urine WBC (Auto) U Epithel Cells (Auto) Vancomycin Trough Phenytoin Crossmatch 10/07/20 10/07/20 10/07/20 19:52 21:00 21:50 WBC RBC Hgb Hct MCV MCH MCHC RDW Plt Count Lymph % (Auto) [place] % (Auto) Lymph # (Auto) [place] # (Auto) Baso # (Auto) Seg Neutrophils % Seg Neuts % (Manual) Lymphocytes % (Manual) Monocytes % (Manual) Nucleated RBC % Seg Neutrophils # Seg Neutrophils # Man Lymphocytes # (Manual) Monocytes # (Manual) PT INR APTT Fibrinogen D-Dimer ABG pH POC ABG pCO2 POC ABG pO2 ABG pO2 ABG HCO3 ABG Base Excess ABG Hemoglobin ABG Oxyhemoglobin ABG Sodium ABG Potassium ABG Chloride ABG Glucose VBG pH Oxyhemoglobin Carboxyhemoglobin Sodium Potassium Chloride Carbon Dioxide BUN Creatinine Glucose POC Glucose 193 H 138 H Random Insulin C-Peptide Lactic Acid Calcium Ionized Calcium 4.4 L Phosphorus Magnesium AST ALT Alkaline Phosphatase Lactate Dehydrogenase NT-Pro-B Natriuret Pep Total Protein Albumin Arterial Blood Glucose Arterial Blood Ionized Calcium Urine pH Urine WBC (Auto) U Epithel Cells (Auto) Vancomycin Trough Phenytoin Crossmatch 10/07/20 10/08/20 10/08/20 23:41 04:20 05:30 WBC RBC Hgb Hct MCV MCH MCHC RDW Plt Count Lymph % (Auto) [place] % (Auto) Lymph # (Auto) [place] # (Auto) Baso # (Auto) Seg Neutrophils % Seg Neuts % (Manual) Lymphocytes % (Manual) Monocytes % (Manual) Nucleated RBC % Seg Neutrophils # Seg Neutrophils # Man Lymphocytes # (Manual) Monocytes # (Manual) PT INR APTT Fibrinogen D-Dimer ABG pH 7.467 H POC ABG pCO2 POC ABG pO2 189.8 H ABG pO2 ABG HCO3 ABG Base Excess ABG Hemoglobin 10.8 L ABG Oxyhemoglobin ABG Sodium ABG Potassium ABG Chloride ABG Glucose 133 H VBG pH Oxyhemoglobin Carboxyhemoglobin Sodium Potassium Chloride Carbon Dioxide BUN Creatinine Glucose POC Glucose 118 H 114 H Random Insulin C-Peptide Lactic Acid Calcium Ionized Calcium Phosphorus Magnesium AST ALT Alkaline Phosphatase Lactate Dehydrogenase NT-Pro-B Natriuret Pep Total Protein Albumin Arterial Blood Glucose 133 H Arterial Blood Ionized Calcium 4.2 L Urine pH Urine WBC (Auto) U Epithel Cells (Auto) Vancomycin Trough Phenytoin Crossmatch 10/08/20 10/08/20 10/08/20 05:43 06:42 06:42 WBC 23.6 H RBC 3.54 L Hgb Hct MCV MCH MCHC RDW 17.8 H Plt Count Lymph % (Auto) [place] % (Auto) Lymph # (Auto) [place] # (Auto) Baso # (Auto) Seg Neutrophils % Seg Neuts % (Manual) 93.0 H Lymphocytes % (Manual) 3.0 L Monocytes % (Manual) Nucleated RBC % 1.0 H Seg Neutrophils # Seg Neutrophils # Man 21.9 H Lymphocytes # (Manual) 0.7 L Monocytes # (Manual) 0.9 H PT INR APTT Fibrinogen D-Dimer ABG pH POC ABG pCO2 POC ABG pO2 ABG pO2 ABG HCO3 ABG Base Excess ABG Hemoglobin ABG Oxyhemoglobin ABG Sodium ABG Potassium ABG Chloride ABG Glucose VBG pH Oxyhemoglobin Carboxyhemoglobin Sodium Potassium Chloride Carbon Dioxide BUN 28 H Creatinine 1.6 H Glucose 141 H POC Glucose 126 H Random Insulin C-Peptide Lactic Acid Calcium 7.6 L Ionized Calcium Phosphorus Magnesium AST 162 H ALT 103 H Alkaline Phosphatase Lactate Dehydrogenase NT-Pro-B Natriuret Pep Total Protein 5.4 L Albumin 2.7 L Arterial Blood Glucose Arterial Blood Ionized Calcium Urine pH Urine WBC (Auto) U Epithel Cells (Auto) Vancomycin Trough Phenytoin Crossmatch 10/08/20 10/08/20 10/08/20 11:20 16:05 20:14 WBC RBC Hgb Hct MCV MCH MCHC RDW Plt Count Lymph % (Auto) [place] % (Auto) Lymph # (Auto) [place] # (Auto) Baso # (Auto) Seg Neutrophils % Seg Neuts % (Manual) Lymphocytes % (Manual) Monocytes % (Manual) Nucleated RBC % Seg Neutrophils # Seg Neutrophils # Man Lymphocytes # (Manual) Monocytes # (Manual) PT INR APTT Fibrinogen D-Dimer ABG pH POC ABG pCO2 POC ABG pO2 ABG pO2 ABG HCO3 ABG Base Excess ABG Hemoglobin ABG Oxyhemoglobin ABG Sodium ABG Potassium ABG Chloride ABG Glucose VBG pH Oxyhemoglobin Carboxyhemoglobin Sodium Potassium Chloride Carbon Dioxide BUN Creatinine Glucose POC Glucose 127 H 172 H 147 H Random Insulin C-Peptide Lactic Acid Calcium Ionized Calcium Phosphorus Magnesium AST ALT Alkaline Phosphatase Lactate Dehydrogenase NT-Pro-B Natriuret Pep Total Protein Albumin Arterial Blood Glucose Arterial Blood Ionized Calcium Urine pH Urine WBC (Auto) U Epithel Cells (Auto) Vancomycin Trough Phenytoin Crossmatch 10/08/20 10/08/20 10/09/20 21:27 23:24 02:10 WBC RBC Hgb Hct MCV MCH MCHC RDW Plt Count Lymph % (Auto) [place] % (Auto) Lymph # (Auto) [place] # (Auto) Baso # (Auto) Seg Neutrophils % Seg Neuts % (Manual) Lymphocytes % (Manual) Monocytes % (Manual) Nucleated RBC % Seg Neutrophils # Seg Neutrophils # Man Lymphocytes # (Manual) Monocytes # (Manual) PT INR APTT Fibrinogen D-Dimer ABG pH POC ABG pCO2 POC ABG pO2 ABG pO2 ABG HCO3 ABG Base Excess ABG Hemoglobin ABG Oxyhemoglobin ABG Sodium ABG Potassium ABG Chloride ABG Glucose VBG pH Oxyhemoglobin Carboxyhemoglobin Sodium Potassium Chloride Carbon Dioxide BUN Creatinine Glucose POC Glucose 140 H 135 H 111 H Random Insulin C-Peptide Lactic Acid Calcium Ionized Calcium Phosphorus Magnesium AST ALT Alkaline Phosphatase Lactate Dehydrogenase NT-Pro-B Natriuret Pep Total Protein Albumin Arterial Blood Glucose Arterial Blood Ionized Calcium Urine pH Urine WBC (Auto) U Epithel Cells (Auto) Vancomycin Trough Phenytoin Crossmatch 10/09/20 10/09/20 10/09/20 03:44 04:39 05:46 WBC 19.7 H RBC 3.51 L Hgb Hct MCV MCH MCHC RDW 17.7 H Plt Count Lymph % (Auto) [place] % (Auto) Lymph # (Auto) [place] # (Auto) Baso # (Auto) Seg Neutrophils % Seg Neuts % (Manual) 86.0 H Lymphocytes % (Manual) 4.0 L Monocytes % (Manual) 9.0 H Nucleated RBC % Seg Neutrophils # Seg Neutrophils # Man 16.9 H Lymphocytes # (Manual) 0.8 L Monocytes # (Manual) 1.8 H PT INR APTT Fibrinogen D-Dimer ABG pH 7.513 H POC ABG pCO2 POC ABG pO2 33.6 L ABG pO2 ABG HCO3 ABG Base Excess ABG Hemoglobin 11.1 L ABG Oxyhemoglobin 70.2 L ABG Sodium ABG Potassium 3.2 L ABG Chloride 108.0 H ABG Glucose 108 H VBG pH Oxyhemoglobin Carboxyhemoglobin Sodium Potassium Chloride Carbon Dioxide BUN Creatinine Glucose POC Glucose 109 H Random Insulin C-Peptide Lactic Acid Calcium Ionized Calcium Phosphorus Magnesium AST ALT Alkaline Phosphatase Lactate Dehydrogenase NT-Pro-B Natriuret Pep Total Protein Albumin Arterial Blood Glucose 108 H Arterial Blood Ionized Calcium 4.3 L Urine pH Urine WBC (Auto) U Epithel Cells (Auto) Vancomycin Trough Phenytoin Crossmatch 10/09/20 10/10/20 10/10/20 05:46 04:00 04:00 WBC 18.4 H RBC Hgb Hct MCV MCH MCHC RDW 17.5 H Plt Count Lymph % (Auto) 9.8 L [place] % (Auto) 8.8 H Lymph # (Auto) [place] # (Auto) 1.6 H Baso # (Auto) Seg Neutrophils % 80.0 H Seg Neuts % (Manual) Lymphocytes % (Manual) Monocytes % (Manual) Nucleated RBC % Seg Neutrophils # 14.7 H Seg Neutrophils # Man Lymphocytes # (Manual) Monocytes # (Manual) PT INR APTT Fibrinogen D-Dimer ABG pH POC ABG pCO2 POC ABG pO2 ABG pO2 ABG HCO3 ABG Base Excess ABG Hemoglobin ABG Oxyhemoglobin ABG Sodium ABG Potassium ABG Chloride ABG Glucose VBG pH Oxyhemoglobin Carboxyhemoglobin Sodium 146 H Potassium 3.2 L 2.9 L* Chloride 108.9 H 112.6 H Carbon Dioxide BUN 34 H 28 H Creatinine 1.4 H 1.3 H Glucose 109 H 101 H POC Glucose Random Insulin C-Peptide Lactic Acid Calcium 7.6 L 7.8 L Ionized Calcium Phosphorus Magnesium AST 137 H 122 H ALT 99 H 81 H Alkaline Phosphatase Lactate Dehydrogenase NT-Pro-B Natriuret Pep Total Protein 5.1 L 5.2 L Albumin 2.6 L 2.7 L Arterial Blood Glucose Arterial Blood Ionized Calcium Urine pH Urine WBC (Auto) U Epithel Cells (Auto) Vancomycin Trough Phenytoin Crossmatch 10/10/20 10/10/20 10/11/20 04:42 09:50 00:44 WBC RBC Hgb Hct MCV MCH MCHC RDW Plt Count Lymph % (Auto) [place] % (Auto) Lymph # (Auto) [place] # (Auto) Baso # (Auto) Seg Neutrophils % Seg Neuts % (Manual) Lymphocytes % (Manual) Monocytes % (Manual) Nucleated RBC % Seg Neutrophils # Seg Neutrophils # Man Lymphocytes # (Manual) Monocytes # (Manual) PT INR APTT Fibrinogen D-Dimer ABG pH 7.534 H POC ABG pCO2 POC ABG pO2 ABG pO2 95.2 H ABG HCO3 ABG Base Excess ABG Hemoglobin 11.3 L ABG Oxyhemoglobin ABG Sodium ABG Potassium ABG Chloride ABG Glucose VBG pH Oxyhemoglobin Carboxyhemoglobin Sodium Potassium Chloride Carbon Dioxide BUN Creatinine Glucose POC Glucose 109 H 106 H Random Insulin C-Peptide Lactic Acid Calcium Ionized Calcium Phosphorus Magnesium AST ALT Alkaline Phosphatase Lactate Dehydrogenase NT-Pro-B Natriuret Pep Total Protein Albumin Arterial Blood Glucose Arterial Blood Ionized Calcium Urine pH Urine WBC (Auto) U Epithel Cells (Auto) Vancomycin Trough Phenytoin Crossmatch 10/11/20 10/11/20 10/11/20 04:00 04:00 06:08 WBC 27.0 H RBC Hgb Hct MCV MCH MCHC RDW 17.7 H Plt Count Lymph % (Auto) 6.3 L [place] % (Auto) Lymph # (Auto) [place] # (Auto) 1.5 H Baso # (Auto) Seg Neutrophils % 87.1 H Seg Neuts % (Manual) Lymphocytes % (Manual) Monocytes % (Manual) Nucleated RBC % Seg Neutrophils # 23.5 H Seg Neutrophils # Man Lymphocytes # (Manual) Monocytes # (Manual) PT INR APTT Fibrinogen D-Dimer ABG pH POC ABG pCO2 POC ABG pO2 ABG pO2 ABG HCO3 ABG Base Excess ABG Hemoglobin ABG Oxyhemoglobin ABG Sodium ABG Potassium ABG Chloride ABG Glucose VBG pH Oxyhemoglobin Carboxyhemoglobin Sodium Potassium 3.2 L Chloride 110.4 H Carbon Dioxide 19 L BUN 22 H Creatinine Glucose 116 H POC Glucose 107 H Random Insulin C-Peptide Lactic Acid Calcium 7.7 L Ionized Calcium Phosphorus Magnesium 1.60 L AST ALT Alkaline Phosphatase Lactate Dehydrogenase NT-Pro-B Natriuret Pep Total Protein Albumin Arterial Blood Glucose Arterial Blood Ionized Calcium Urine pH Urine WBC (Auto) U Epithel Cells (Auto) Vancomycin Trough Phenytoin Crossmatch 10/11/20 10/11/20 10/12/20 11:41 13:26 03:52 WBC RBC Hgb Hct MCV MCH MCHC RDW Plt Count Lymph % (Auto) [place] % (Auto) Lymph # (Auto) [place] # (Auto) Baso # (Auto) Seg Neutrophils % Seg Neuts % (Manual) Lymphocytes % (Manual) Monocytes % (Manual) Nucleated RBC % Seg Neutrophils # Seg Neutrophils # Man Lymphocytes # (Manual) Monocytes # (Manual) PT INR APTT Fibrinogen D-Dimer ABG pH POC ABG pCO2 POC ABG pO2 ABG pO2 ABG HCO3 ABG Base Excess ABG Hemoglobin ABG Oxyhemoglobin ABG Sodium ABG Potassium ABG Chloride ABG Glucose VBG pH Oxyhemoglobin Carboxyhemoglobin Sodium Potassium Chloride Carbon Dioxide BUN Creatinine Glucose POC Glucose 116 H 114 H Random Insulin C-Peptide Lactic Acid Calcium Ionized Calcium Phosphorus Magnesium AST ALT Alkaline Phosphatase Lactate Dehydrogenase NT-Pro-B Natriuret Pep Total Protein Albumin Arterial Blood Glucose Arterial Blood Ionized Calcium Urine pH Urine WBC (Auto) 24.0 H U Epithel Cells (Auto) Vancomycin Trough Phenytoin Crossmatch 10/12/20 10/12/20 10/12/20 04:24 14:47 21:33 WBC RBC Hgb Hct MCV MCH MCHC RDW Plt Count Lymph % (Auto) [place] % (Auto) Lymph # (Auto) [place] # (Auto) Baso # (Auto) Seg Neutrophils % Seg Neuts % (Manual) Lymphocytes % (Manual) Monocytes % (Manual) Nucleated RBC % Seg Neutrophils # Seg Neutrophils # Man Lymphocytes # (Manual) Monocytes # (Manual) PT INR APTT Fibrinogen D-Dimer ABG pH POC ABG pCO2 POC ABG pO2 ABG pO2 ABG HCO3 ABG Base Excess ABG Hemoglobin ABG Oxyhemoglobin ABG Sodium ABG Potassium ABG Chloride ABG Glucose VBG pH Oxyhemoglobin Carboxyhemoglobin Sodium Potassium Chloride 109.9 H Carbon Dioxide 13 L BUN 18 H Creatinine Glucose 119 H POC Glucose 107 H Random Insulin C-Peptide Lactic Acid Calcium 7.6 L Ionized Calcium Phosphorus Magnesium 1.60 L AST ALT Alkaline Phosphatase Lactate Dehydrogenase NT-Pro-B Natriuret Pep Total Protein Albumin Arterial Blood Glucose Arterial Blood Ionized Calcium Urine pH Urine WBC (Auto) U Epithel Cells (Auto) Vancomycin Trough Phenytoin Crossmatch 10/12/20 10/12/20 10/13/20 Unknown Unknown 07:00 WBC 24.3 H RBC 3.38 L Hgb 9.8 L Hct MCV MCH MCHC RDW 18.7 H Plt Count Lymph % (Auto) [place] % (Auto) Lymph # (Auto) [place] # (Auto) Baso # (Auto) Seg Neutrophils % Seg Neuts % (Manual) 93.5 H Lymphocytes % (Manual) 4.5 L Monocytes % (Manual) Nucleated RBC % Seg Neutrophils # Seg Neutrophils # Man 22.7 H Lymphocytes # (Manual) 1.1 L Monocytes # (Manual) PT INR APTT Fibrinogen D-Dimer ABG pH POC ABG pCO2 POC ABG pO2 ABG pO2 ABG HCO3 ABG Base Excess ABG Hemoglobin ABG Oxyhemoglobin ABG Sodium ABG Potassium ABG Chloride ABG Glucose VBG pH Oxyhemoglobin Carboxyhemoglobin Sodium 135 L D Potassium 3.1 L Chloride Carbon Dioxide 17 L BUN Creatinine Glucose 510 H* POC Glucose Random Insulin C-Peptide Lactic Acid Calcium 7.2 L Ionized Calcium Phosphorus Magnesium AST ALT Alkaline Phosphatase Lactate Dehydrogenase NT-Pro-B Natriuret Pep Total Protein Albumin Arterial Blood Glucose Arterial Blood Ionized Calcium Urine pH Urine WBC (Auto) U Epithel Cells (Auto) Vancomycin Trough Phenytoin 5.7 L Crossmatch 10/13/20 10/13/20 10/13/20 07:00 07:00 07:18 WBC 23.6 H RBC 3.26 L Hgb 9.4 L Hct 28.7 L MCV MCH MCHC RDW 18.3 H Plt Count Lymph % (Auto) [place] % (Auto) Lymph # (Auto) [place] # (Auto) Baso # (Auto) Seg Neutrophils % Seg Neuts % (Manual) Lymphocytes % (Manual) Monocytes % (Manual) Nucleated RBC % Seg Neutrophils # Seg Neutrophils # Man Lymphocytes # (Manual) Monocytes # (Manual) PT INR APTT Fibrinogen D-Dimer ABG pH 7.473 H POC ABG pCO2 20.7 L POC ABG pO2 137.9 H ABG pO2 ABG HCO3 ABG Base Excess ABG Hemoglobin 11.2 L ABG Oxyhemoglobin 98.3 H ABG Sodium 135.9 L ABG Potassium ABG Chloride 111.0 H ABG Glucose 109 H VBG pH Oxyhemoglobin Carboxyhemoglobin 0.3 L Sodium 135 L Potassium 3.5 L Chloride 109.1 H Carbon Dioxide 18 L BUN Creatinine Glucose POC Glucose Random Insulin C-Peptide Lactic Acid Calcium 7.3 L Ionized Calcium Phosphorus Magnesium 1.60 L AST ALT Alkaline Phosphatase Lactate Dehydrogenase NT-Pro-B Natriuret Pep Total Protein Albumin Arterial Blood Glucose 109 H Arterial Blood Ionized Calcium Urine pH Urine WBC (Auto) U Epithel Cells (Auto) Vancomycin Trough Phenytoin Crossmatch 10/14/20 10/14/20 10/15/20 04:00 04:00 05:50 WBC 28.6 H 23.2 H RBC 3.61 L 3.43 L Hgb 9.9 L Hct 30.0 L MCV MCH MCHC RDW 18.3 H 18.2 H Plt Count Lymph % (Auto) [place] % (Auto) Lymph # (Auto) [place] # (Auto) Baso # (Auto) Seg Neutrophils % Seg Neuts % (Manual) 88.0 H 90.0 H Lymphocytes % (Manual) 5.0 L 4.0 L Monocytes % (Manual) Nucleated RBC % Seg Neutrophils # Seg Neutrophils # Man 25.2 H 20.9 H Lymphocytes # (Manual) 0.9 L Monocytes # (Manual) 1.4 H 0.9 H PT INR APTT Fibrinogen D-Dimer ABG pH POC ABG pCO2 POC ABG pO2 ABG pO2 ABG HCO3 ABG Base Excess ABG Hemoglobin ABG Oxyhemoglobin ABG Sodium ABG Potassium ABG Chloride ABG Glucose VBG pH Oxyhemoglobin Carboxyhemoglobin Sodium Potassium Chloride 109.9 H Carbon Dioxide 17 L BUN Creatinine Glucose POC Glucose Random Insulin C-Peptide Lactic Acid Calcium Ionized Calcium Phosphorus Magnesium AST ALT Alkaline Phosphatase Lactate Dehydrogenase NT-Pro-B Natriuret Pep Total Protein Albumin Arterial Blood Glucose Arterial Blood Ionized Calcium Urine pH Urine WBC (Auto) U Epithel Cells (Auto) Vancomycin Trough Phenytoin Crossmatch 10/15/20 10/16/20 10/17/20 05:50 11:57 04:57 WBC 15.2 H RBC 3.43 L Hgb Hct MCV MCH MCHC RDW 18.1 H Plt Count Lymph % (Auto) [place] % (Auto) Lymph # (Auto) [place] # (Auto) Baso # (Auto) Seg Neutrophils % Seg Neuts % (Manual) Lymphocytes % (Manual) Monocytes % (Manual) Nucleated RBC % Seg Neutrophils # Seg Neutrophils # Man Lymphocytes # (Manual) Monocytes # (Manual) PT INR APTT Fibrinogen D-Dimer ABG pH POC ABG pCO2 POC ABG pO2 ABG pO2 ABG HCO3 ABG Base Excess ABG Hemoglobin ABG Oxyhemoglobin ABG Sodium ABG Potassium ABG Chloride ABG Glucose VBG pH Oxyhemoglobin Carboxyhemoglobin Sodium Potassium Chloride 110.3 H Carbon Dioxide 18 L BUN Creatinine Glucose 105 H POC Glucose 111 H Random Insulin C-Peptide Lactic Acid Calcium 8.3 L Ionized Calcium Phosphorus Magnesium AST ALT Alkaline Phosphatase Lactate Dehydrogenase NT-Pro-B Natriuret Pep Total Protein Albumin Arterial Blood Glucose Arterial Blood Ionized Calcium Urine pH Urine WBC (Auto) U Epithel Cells (Auto) Vancomycin Trough Phenytoin Crossmatch 10/17/20 10/17/20 10/18/20 05:25 21:16 01:31 WBC RBC Hgb Hct MCV MCH MCHC RDW Plt Count Lymph % (Auto) [place] % (Auto) Lymph # (Auto) [place] # (Auto) Baso # (Auto) Seg Neutrophils % Seg Neuts % (Manual) Lymphocytes % (Manual) Monocytes % (Manual) Nucleated RBC % Seg Neutrophils # Seg Neutrophils # Man Lymphocytes # (Manual) Monocytes # (Manual) PT INR APTT Fibrinogen D-Dimer ABG pH POC ABG pCO2 POC ABG pO2 ABG pO2 ABG HCO3 ABG Base Excess ABG Hemoglobin ABG Oxyhemoglobin ABG Sodium ABG Potassium ABG Chloride ABG Glucose VBG pH Oxyhemoglobin Carboxyhemoglobin Sodium Potassium Chloride Carbon Dioxide BUN Creatinine Glucose POC Glucose 107 H 106 H 119 H Random Insulin C-Peptide Lactic Acid Calcium Ionized Calcium Phosphorus Magnesium AST ALT Alkaline Phosphatase Lactate Dehydrogenase NT-Pro-B Natriuret Pep Total Protein Albumin Arterial Blood Glucose Arterial Blood Ionized Calcium Urine pH Urine WBC (Auto) U Epithel Cells (Auto) Vancomycin Trough Phenytoin Crossmatch 10/18/20 10/18/20 10/19/20 05:45 11:23 01:14 WBC RBC Hgb Hct MCV MCH MCHC RDW Plt Count Lymph % (Auto) [place] % (Auto) Lymph # (Auto) [place] # (Auto) Baso # (Auto) Seg Neutrophils % Seg Neuts % (Manual) Lymphocytes % (Manual) Monocytes % (Manual) Nucleated RBC % Seg Neutrophils # Seg Neutrophils # Man Lymphocytes # (Manual) Monocytes # (Manual) PT INR APTT Fibrinogen D-Dimer ABG pH POC ABG pCO2 POC ABG pO2 ABG pO2 ABG HCO3 ABG Base Excess ABG Hemoglobin ABG Oxyhemoglobin ABG Sodium ABG Potassium ABG Chloride ABG Glucose VBG pH Oxyhemoglobin Carboxyhemoglobin Sodium Potassium Chloride Carbon Dioxide BUN Creatinine Glucose POC Glucose 106 H 115 H 108 H Random Insulin C-Peptide Lactic Acid Calcium Ionized Calcium Phosphorus Magnesium AST ALT Alkaline Phosphatase Lactate Dehydrogenase NT-Pro-B Natriuret Pep Total Protein Albumin Arterial Blood Glucose Arterial Blood Ionized Calcium Urine pH Urine WBC (Auto) U Epithel Cells (Auto) Vancomycin Trough Phenytoin Crossmatch 10/19/20 10/20/20 10/20/20 09:57 05:40 07:59 WBC RBC Hgb Hct MCV MCH MCHC RDW Plt Count Lymph % (Auto) [place] % (Auto) Lymph # (Auto) [place] # (Auto) Baso # (Auto) Seg Neutrophils % Seg Neuts % (Manual) Lymphocytes % (Manual) Monocytes % (Manual) Nucleated RBC % Seg Neutrophils # Seg Neutrophils # Man Lymphocytes # (Manual) Monocytes # (Manual) PT INR APTT Fibrinogen D-Dimer ABG pH POC ABG pCO2 POC ABG pO2 ABG pO2 ABG HCO3 ABG Base Excess ABG Hemoglobin ABG Oxyhemoglobin ABG Sodium ABG Potassium ABG Chloride ABG Glucose VBG pH Oxyhemoglobin Carboxyhemoglobin Sodium Potassium Chloride Carbon Dioxide BUN Creatinine Glucose 106 H POC Glucose 122 H 109 H Random Insulin C-Peptide Lactic Acid Calcium Ionized Calcium Phosphorus Magnesium AST ALT Alkaline Phosphatase Lactate Dehydrogenase NT-Pro-B Natriuret Pep Total Protein Albumin Arterial Blood Glucose Arterial Blood Ionized Calcium Urine pH Urine WBC (Auto) U Epithel Cells (Auto) Vancomycin Trough Phenytoin Crossmatch 10/20/20 10/20/20 10/21/20 16:52 16:52 13:54 WBC 18.8 H 17.0 H RBC Hgb Hct MCV MCH MCHC RDW 17.7 H 17.8 H Plt Count 547 H 544 H Lymph % (Auto) 11.2 L [place] % (Auto) 8.1 H Lymph # (Auto) [place] # (Auto) 1.5 H Baso # (Auto) 0.2 H Seg Neutrophils % 78.8 H Seg Neuts % (Manual) Lymphocytes % (Manual) Monocytes % (Manual) Nucleated RBC % Seg Neutrophils # 14.8 H Seg Neutrophils # Man Lymphocytes # (Manual) Monocytes # (Manual) PT INR APTT Fibrinogen D-Dimer ABG pH POC ABG pCO2 POC ABG pO2 ABG pO2 ABG HCO3 ABG Base Excess ABG Hemoglobin ABG Oxyhemoglobin ABG Sodium ABG Potassium ABG Chloride ABG Glucose VBG pH Oxyhemoglobin Carboxyhemoglobin Sodium Potassium Chloride Carbon Dioxide BUN Creatinine Glucose POC Glucose Random Insulin C-Peptide Lactic Acid Calcium Ionized Calcium Phosphorus Magnesium AST ALT Alkaline Phosphatase Lactate Dehydrogenase NT-Pro-B Natriuret Pep Total Protein Albumin Arterial Blood Glucose Arterial Blood Ionized Calcium Urine pH Urine WBC (Auto) U Epithel Cells (Auto) Vancomycin Trough 34.5 H Phenytoin Crossmatch 10/21/20 10/22/20 10/23/20 13:54 07:26 05:34 WBC 18.7 H 13.0 H RBC 3.64 L 3.50 L Hgb Hct 30.0 L MCV MCH MCHC 35 H RDW 17.7 H 17.6 H Plt Count 502 H 503 H Lymph % (Auto) [place] % (Auto) Lymph # (Auto) [place] # (Auto) Baso # (Auto) Seg Neutrophils % Seg Neuts % (Manual) Lymphocytes % (Manual) Monocytes % (Manual) Nucleated RBC % Seg Neutrophils # Seg Neutrophils # Man Lymphocytes # (Manual) Monocytes # (Manual) PT INR APTT Fibrinogen D-Dimer ABG pH POC ABG pCO2 POC ABG pO2 ABG pO2 ABG HCO3 ABG Base Excess ABG Hemoglobin ABG Oxyhemoglobin ABG Sodium ABG Potassium ABG Chloride ABG Glucose VBG pH Oxyhemoglobin Carboxyhemoglobin Sodium 136 L Potassium Chloride Carbon Dioxide BUN Creatinine Glucose 120 H POC Glucose Random Insulin C-Peptide Lactic Acid Calcium Ionized Calcium Phosphorus Magnesium AST ALT Alkaline Phosphatase Lactate Dehydrogenase NT-Pro-B Natriuret Pep Total Protein Albumin Arterial Blood Glucose Arterial Blood Ionized Calcium Urine pH Urine WBC (Auto) U Epithel Cells (Auto) Vancomycin Trough Phenytoin Crossmatch 10/23/20 10/26/20 10/27/20 05:34 10:30 07:53 WBC 13.6 H RBC 3.38 L Hgb 10.0 L Hct 28.8 L MCV MCH MCHC 35 H RDW 17.6 H Plt Count Lymph % (Auto) [place] % (Auto) Lymph # (Auto) [place] # (Auto) Baso # (Auto) Seg Neutrophils % Seg Neuts % (Manual) Lymphocytes % (Manual) Monocytes % (Manual) Nucleated RBC % Seg Neutrophils # Seg Neutrophils # Man Lymphocytes # (Manual) Monocytes # (Manual) PT INR APTT Fibrinogen D-Dimer ABG pH 7.459 H POC ABG pCO2 POC ABG pO2 ABG pO2 112.2 H ABG HCO3 ABG Base Excess ABG Hemoglobin ABG Oxyhemoglobin ABG Sodium ABG Potassium ABG Chloride ABG Glucose VBG pH Oxyhemoglobin Carboxyhemoglobin Sodium 135 L Potassium Chloride Carbon Dioxide BUN Creatinine Glucose 105 H POC Glucose Random Insulin C-Peptide Lactic Acid Calcium Ionized Calcium Phosphorus Magnesium AST ALT Alkaline Phosphatase Lactate Dehydrogenase NT-Pro-B Natriuret Pep Total Protein Albumin Arterial Blood Glucose Arterial Blood Ionized Calcium Urine pH Urine WBC (Auto) U Epithel Cells (Auto) Vancomycin Trough Phenytoin Crossmatch 10/27/20 10/27/20 10/28/20 07:53 11:31 05:19 WBC RBC Hgb Hct MCV MCH MCHC RDW Plt Count Lymph % (Auto) [place] % (Auto) Lymph # (Auto) [place] # (Auto) Baso # (Auto) Seg Neutrophils % Seg Neuts % (Manual) Lymphocytes % (Manual) Monocytes % (Manual) Nucleated RBC % Seg Neutrophils # Seg Neutrophils # Man Lymphocytes # (Manual) Monocytes # (Manual) PT INR APTT Fibrinogen D-Dimer ABG pH POC ABG pCO2 POC ABG pO2 ABG pO2 ABG HCO3 ABG Base Excess ABG Hemoglobin ABG Oxyhemoglobin ABG Sodium ABG Potassium ABG Chloride ABG Glucose VBG pH Oxyhemoglobin Carboxyhemoglobin Sodium Potassium Chloride Carbon Dioxide BUN 20 H Creatinine Glucose 112 H POC Glucose 113 H 112 H Random Insulin C-Peptide Lactic Acid Calcium Ionized Calcium Phosphorus Magnesium AST 83 H ALT Alkaline Phosphatase Lactate Dehydrogenase NT-Pro-B Natriuret Pep Total Protein Albumin 3.8 L Arterial Blood Glucose Arterial Blood Ionized Calcium Urine pH Urine WBC (Auto) U Epithel Cells (Auto) Vancomycin Trough Phenytoin Crossmatch 10/29/20 10/29/20 10/29/20 07:56 07:56 11:37 WBC 13.6 H RBC Hgb Hct MCV MCH MCHC RDW 17.0 H Plt Count Lymph % (Auto) [place] % (Auto) Lymph # (Auto) [place] # (Auto) Baso # (Auto) Seg Neutrophils % Seg Neuts % (Manual) 80.0 H Lymphocytes % (Manual) Monocytes % (Manual) Nucleated RBC % Seg Neutrophils # Seg Neutrophils # Man 10.9 H Lymphocytes # (Manual) Monocytes # (Manual) PT INR APTT Fibrinogen D-Dimer ABG pH POC ABG pCO2 POC ABG pO2 ABG pO2 ABG HCO3 ABG Base Excess ABG Hemoglobin ABG Oxyhemoglobin ABG Sodium ABG Potassium ABG Chloride ABG Glucose VBG pH Oxyhemoglobin Carboxyhemoglobin Sodium Potassium Chloride Carbon Dioxide BUN Creatinine Glucose POC Glucose 108 H Random Insulin C-Peptide Lactic Acid Calcium Ionized Calcium Phosphorus 4.70 H Magnesium AST ALT Alkaline Phosphatase Lactate Dehydrogenase NT-Pro-B Natriuret Pep Total Protein Albumin Arterial Blood Glucose Arterial Blood Ionized Calcium Urine pH Urine WBC (Auto) U Epithel Cells (Auto) Vancomycin Trough Phenytoin Crossmatch 10/29/20 10/30/20 10/30/20 13:32 12:11 17:19 WBC RBC Hgb Hct MCV MCH MCHC RDW Plt Count Lymph % (Auto) [place] % (Auto) Lymph # (Auto) [place] # (Auto) Baso # (Auto) Seg Neutrophils % Seg Neuts % (Manual) Lymphocytes % (Manual) Monocytes % (Manual) Nucleated RBC % Seg Neutrophils # Seg Neutrophils # Man Lymphocytes # (Manual) Monocytes # (Manual) PT INR APTT Fibrinogen D-Dimer ABG pH POC ABG pCO2 POC ABG pO2 ABG pO2 ABG HCO3 ABG Base Excess ABG Hemoglobin ABG Oxyhemoglobin ABG Sodium ABG Potassium ABG Chloride ABG Glucose VBG pH Oxyhemoglobin Carboxyhemoglobin Sodium Potassium Chloride Carbon Dioxide BUN Creatinine Glucose POC Glucose 108 H 106 H 107 H Random Insulin C-Peptide Lactic Acid Calcium Ionized Calcium Phosphorus Magnesium AST ALT Alkaline Phosphatase Lactate Dehydrogenase NT-Pro-B Natriuret Pep Total Protein Albumin Arterial Blood Glucose Arterial Blood Ionized Calcium Urine pH Urine WBC (Auto) U Epithel Cells (Auto) Vancomycin Trough Phenytoin Crossmatch 10/31/20 10/31/20 11/01/20 03:20 05:43 04:55 WBC RBC Hgb Hct MCV MCH MCHC RDW Plt Count Lymph % (Auto) [place] % (Auto) Lymph # (Auto) [place] # (Auto) Baso # (Auto) Seg Neutrophils % Seg Neuts % (Manual) Lymphocytes % (Manual) Monocytes % (Manual) Nucleated RBC % Seg Neutrophils # Seg Neutrophils # Man Lymphocytes # (Manual) Monocytes # (Manual) PT INR APTT Fibrinogen D-Dimer ABG pH POC ABG pCO2 POC ABG pO2 ABG pO2 ABG HCO3 ABG Base Excess ABG Hemoglobin ABG Oxyhemoglobin ABG Sodium ABG Potassium ABG Chloride ABG Glucose VBG pH Oxyhemoglobin Carboxyhemoglobin Sodium Potassium Chloride Carbon Dioxide BUN Creatinine Glucose POC Glucose 108 H 115 H 108 H Random Insulin C-Peptide Lactic Acid Calcium Ionized Calcium Phosphorus Magnesium AST ALT Alkaline Phosphatase Lactate Dehydrogenase NT-Pro-B Natriuret Pep Total Protein Albumin Arterial Blood Glucose Arterial Blood Ionized Calcium Urine pH Urine WBC (Auto) U Epithel Cells (Auto) Vancomycin Trough Phenytoin Crossmatch 11/01/20 11/01/20 11/01/20 05:01 16:47 21:36 WBC RBC Hgb Hct MCV MCH MCHC RDW Plt Count Lymph % (Auto) [place] % (Auto) Lymph # (Auto) [place] # (Auto) Baso # (Auto) Seg Neutrophils % Seg Neuts % (Manual) Lymphocytes % (Manual) Monocytes % (Manual) Nucleated RBC % Seg Neutrophils # Seg Neutrophils # Man Lymphocytes # (Manual) Monocytes # (Manual) PT INR APTT Fibrinogen D-Dimer ABG pH POC ABG pCO2 POC ABG pO2 ABG pO2 ABG HCO3 ABG Base Excess ABG Hemoglobin ABG Oxyhemoglobin ABG Sodium ABG Potassium ABG Chloride ABG Glucose VBG pH Oxyhemoglobin Carboxyhemoglobin Sodium 135 L Potassium Chloride Carbon Dioxide BUN Creatinine Glucose POC Glucose 116 H 112 H Random Insulin C-Peptide Lactic Acid Calcium Ionized Calcium Phosphorus Magnesium AST 93 H ALT Alkaline Phosphatase 132 H Lactate Dehydrogenase NT-Pro-B Natriuret Pep Total Protein Albumin 3.6 L Arterial Blood Glucose Arterial Blood Ionized Calcium Urine pH Urine WBC (Auto) U Epithel Cells (Auto) Vancomycin Trough Phenytoin Crossmatch 11/02/20 11/02/20 11/02/20 17:45 19:19 19:19 WBC RBC Hgb Hct MCV MCH MCHC RDW Plt Count Lymph % (Auto) [place] % (Auto) Lymph # (Auto) [place] # (Auto) Baso # (Auto) Seg Neutrophils % Seg Neuts % (Manual) Lymphocytes % (Manual) Monocytes % (Manual) Nucleated RBC % Seg Neutrophils # Seg Neutrophils # Man Lymphocytes # (Manual) Monocytes # (Manual) PT INR APTT Fibrinogen D-Dimer ABG pH POC ABG pCO2 POC ABG pO2 ABG pO2 ABG HCO3 ABG Base Excess ABG Hemoglobin ABG Oxyhemoglobin ABG Sodium ABG Potassium ABG Chloride ABG Glucose VBG pH Oxyhemoglobin Carboxyhemoglobin Sodium Potassium Chloride Carbon Dioxide BUN Creatinine Glucose POC Glucose 107 H Random Insulin 43.2 H C-Peptide 6.23 H Lactic Acid Calcium Ionized Calcium Phosphorus Magnesium AST ALT Alkaline Phosphatase Lactate Dehydrogenase NT-Pro-B Natriuret Pep Total Protein Albumin Arterial Blood Glucose Arterial Blood Ionized Calcium Urine pH Urine WBC (Auto) U Epithel Cells (Auto) Vancomycin Trough Phenytoin Crossmatch 11/03/20 11/04/20 11/04/20 21:49 05:00 05:00 WBC 13.8 H RBC Hgb Hct MCV MCH MCHC RDW 16.6 H Plt Count Lymph % (Auto) 11.8 L [place] % (Auto) 11.0 H Lymph # (Auto) [place] # (Auto) 1.5 H Baso # (Auto) Seg Neutrophils % 75.1 H Seg Neuts % (Manual) Lymphocytes % (Manual) Monocytes % (Manual) Nucleated RBC % Seg Neutrophils # 10.4 H Seg Neutrophils # Man Lymphocytes # (Manual) Monocytes # (Manual) PT INR APTT Fibrinogen D-Dimer ABG pH POC ABG pCO2 POC ABG pO2 ABG pO2 ABG HCO3 ABG Base Excess ABG Hemoglobin ABG Oxyhemoglobin ABG Sodium ABG Potassium ABG Chloride ABG Glucose VBG pH Oxyhemoglobin Carboxyhemoglobin Sodium Potassium Chloride Carbon Dioxide BUN Creatinine Glucose 112 H POC Glucose 109 H Random Insulin C-Peptide Lactic Acid Calcium Ionized Calcium Phosphorus Magnesium AST 90 H ALT Alkaline Phosphatase Lactate Dehydrogenase NT-Pro-B Natriuret Pep Total Protein Albumin 3.8 L Arterial Blood Glucose Arterial Blood Ionized Calcium Urine pH Urine WBC (Auto) U Epithel Cells (Auto) Vancomycin Trough Phenytoin Crossmatch 11/04/20 11/04/20 11/05/20 06:03 23:47 07:47 WBC RBC Hgb Hct MCV MCH MCHC RDW Plt Count Lymph % (Auto) [place] % (Auto) Lymph # (Auto) [place] # (Auto) Baso # (Auto) Seg Neutrophils % Seg Neuts % (Manual) Lymphocytes % (Manual) Monocytes % (Manual) Nucleated RBC % Seg Neutrophils # Seg Neutrophils # Man Lymphocytes # (Manual) Monocytes # (Manual) PT INR APTT Fibrinogen D-Dimer ABG pH POC ABG pCO2 POC ABG pO2 ABG pO2 ABG HCO3 ABG Base Excess ABG Hemoglobin ABG Oxyhemoglobin ABG Sodium ABG Potassium ABG Chloride ABG Glucose VBG pH Oxyhemoglobin Carboxyhemoglobin Sodium Potassium Chloride Carbon Dioxide BUN Creatinine Glucose POC Glucose 107 H 121 H 111 H Random Insulin C-Peptide Lactic Acid Calcium Ionized Calcium Phosphorus Magnesium AST ALT Alkaline Phosphatase Lactate Dehydrogenase NT-Pro-B Natriuret Pep Total Protein Albumin Arterial Blood Glucose Arterial Blood Ionized Calcium Urine pH Urine WBC (Auto) U Epithel Cells (Auto) Vancomycin Trough Phenytoin Crossmatch 11/05/20 11/06/20 11/06/20 23:24 17:04 23:36 WBC RBC Hgb Hct MCV MCH MCHC RDW Plt Count Lymph % (Auto) [place] % (Auto) Lymph # (Auto) [place] # (Auto) Baso # (Auto) Seg Neutrophils % Seg Neuts % (Manual) Lymphocytes % (Manual) Monocytes % (Manual) Nucleated RBC % Seg Neutrophils # Seg Neutrophils # Man Lymphocytes # (Manual) Monocytes # (Manual) PT INR APTT Fibrinogen D-Dimer ABG pH POC ABG pCO2 POC ABG pO2 ABG pO2 ABG HCO3 ABG Base Excess ABG Hemoglobin ABG Oxyhemoglobin ABG Sodium ABG Potassium ABG Chloride ABG Glucose VBG pH Oxyhemoglobin Carboxyhemoglobin Sodium Potassium Chloride Carbon Dioxide BUN Creatinine Glucose POC Glucose 111 H 112 H 108 H Random Insulin C-Peptide Lactic Acid Calcium Ionized Calcium Phosphorus Magnesium AST ALT Alkaline Phosphatase Lactate Dehydrogenase NT-Pro-B Natriuret Pep Total Protein Albumin Arterial Blood Glucose Arterial Blood Ionized Calcium Urine pH Urine WBC (Auto) U Epithel Cells (Auto) Vancomycin Trough Phenytoin Crossmatch 11/07/20 11/07/20 11/07/20 03:33 04:44 04:44 WBC RBC Hgb Hct MCV MCH MCHC RDW 16.6 H Plt Count Lymph % (Auto) [place] % (Auto) 13.1 H Lymph # (Auto) [place] # (Auto) 1.3 H Baso # (Auto) Seg Neutrophils % Seg Neuts % (Manual) Lymphocytes % (Manual) Monocytes % (Manual) Nucleated RBC % Seg Neutrophils # Seg Neutrophils # Man Lymphocytes # (Manual) Monocytes # (Manual) PT INR APTT Fibrinogen D-Dimer ABG pH POC ABG pCO2 POC ABG pO2 ABG pO2 ABG HCO3 ABG Base Excess ABG Hemoglobin ABG Oxyhemoglobin ABG Sodium ABG Potassium ABG Chloride ABG Glucose VBG pH Oxyhemoglobin Carboxyhemoglobin Sodium Potassium Chloride Carbon Dioxide BUN Creatinine Glucose 103 H POC Glucose 109 H Random Insulin C-Peptide Lactic Acid Calcium Ionized Calcium Phosphorus 5.30 H Magnesium AST ALT Alkaline Phosphatase Lactate Dehydrogenase NT-Pro-B Natriuret Pep Total Protein Albumin Arterial Blood Glucose Arterial Blood Ionized Calcium Urine pH Urine WBC (Auto) U Epithel Cells (Auto) Vancomycin Trough Phenytoin Crossmatch 11/07/20 11/07/20 11/08/20 15:58 23:46 07:30 WBC RBC Hgb Hct MCV MCH MCHC RDW Plt Count Lymph % (Auto) [place] % (Auto) Lymph # (Auto) [place] # (Auto) Baso # (Auto) Seg Neutrophils % Seg Neuts % (Manual) Lymphocytes % (Manual) Monocytes % (Manual) Nucleated RBC % Seg Neutrophils # Seg Neutrophils # Man Lymphocytes # (Manual) Monocytes # (Manual) PT INR APTT Fibrinogen D-Dimer ABG pH POC ABG pCO2 POC ABG pO2 ABG pO2 ABG HCO3 ABG Base Excess ABG Hemoglobin ABG Oxyhemoglobin ABG Sodium ABG Potassium ABG Chloride ABG Glucose VBG pH Oxyhemoglobin Carboxyhemoglobin Sodium Potassium Chloride Carbon Dioxide BUN Creatinine Glucose POC Glucose 108 H 106 H 109 H Random Insulin C-Peptide Lactic Acid Calcium Ionized Calcium Phosphorus Magnesium AST ALT Alkaline Phosphatase Lactate Dehydrogenase NT-Pro-B Natriuret Pep Total Protein Albumin Arterial Blood Glucose Arterial Blood Ionized Calcium Urine pH Urine WBC (Auto) U Epithel Cells (Auto) Vancomycin Trough Phenytoin Crossmatch 11/08/20 11/08/20 11/09/20 11:48 23:32 17:10 WBC RBC Hgb Hct MCV MCH MCHC RDW Plt Count Lymph % (Auto) [place] % (Auto) Lymph # (Auto) [place] # (Auto) Baso # (Auto) Seg Neutrophils % Seg Neuts % (Manual) Lymphocytes % (Manual) Monocytes % (Manual) Nucleated RBC % Seg Neutrophils # Seg Neutrophils # Man Lymphocytes # (Manual) Monocytes # (Manual) PT INR APTT Fibrinogen D-Dimer ABG pH POC ABG pCO2 POC ABG pO2 ABG pO2 ABG HCO3 ABG Base Excess ABG Hemoglobin ABG Oxyhemoglobin ABG Sodium ABG Potassium ABG Chloride ABG Glucose VBG pH Oxyhemoglobin Carboxyhemoglobin Sodium Potassium Chloride Carbon Dioxide BUN Creatinine Glucose POC Glucose 110 H 116 H 112 H Random Insulin C-Peptide Lactic Acid Calcium Ionized Calcium Phosphorus Magnesium AST ALT Alkaline Phosphatase Lactate Dehydrogenase NT-Pro-B Natriuret Pep Total Protein Albumin Arterial Blood Glucose Arterial Blood Ionized Calcium Urine pH Urine WBC (Auto) U Epithel Cells (Auto) Vancomycin Trough Phenytoin Crossmatch 11/09/20 11/10/20 11/10/20 21:42 05:49 07:17 WBC RBC Hgb Hct MCV MCH MCHC RDW Plt Count Lymph % (Auto) [place] % (Auto) Lymph # (Auto) [place] # (Auto) Baso # (Auto) Seg Neutrophils % Seg Neuts % (Manual) Lymphocytes % (Manual) Monocytes % (Manual) Nucleated RBC % Seg Neutrophils # Seg Neutrophils # Man Lymphocytes # (Manual) Monocytes # (Manual) PT INR APTT Fibrinogen D-Dimer ABG pH POC ABG pCO2 POC ABG pO2 ABG pO2 ABG HCO3 ABG Base Excess ABG Hemoglobin ABG Oxyhemoglobin ABG Sodium ABG Potassium ABG Chloride ABG Glucose VBG pH Oxyhemoglobin Carboxyhemoglobin Sodium Potassium Chloride Carbon Dioxide BUN Creatinine Glucose POC Glucose 110 H 108 H 111 H Random Insulin C-Peptide Lactic Acid Calcium Ionized Calcium Phosphorus Magnesium AST ALT Alkaline Phosphatase Lactate Dehydrogenase NT-Pro-B Natriuret Pep Total Protein Albumin Arterial Blood Glucose Arterial Blood Ionized Calcium Urine pH Urine WBC (Auto) U Epithel Cells (Auto) Vancomycin Trough Phenytoin Crossmatch 11/10/20 11/11/20 11/11/20 20:36 04:58 11:56 WBC RBC Hgb Hct MCV MCH MCHC RDW Plt Count Lymph % (Auto) [place] % (Auto) Lymph # (Auto) [place] # (Auto) Baso # (Auto) Seg Neutrophils % Seg Neuts % (Manual) Lymphocytes % (Manual) Monocytes % (Manual) Nucleated RBC % Seg Neutrophils # Seg Neutrophils # Man Lymphocytes # (Manual) Monocytes # (Manual) PT INR APTT Fibrinogen D-Dimer ABG pH POC ABG pCO2 POC ABG pO2 ABG pO2 ABG HCO3 ABG Base Excess ABG Hemoglobin ABG Oxyhemoglobin ABG Sodium ABG Potassium ABG Chloride ABG Glucose VBG pH Oxyhemoglobin Carboxyhemoglobin Sodium Potassium Chloride Carbon Dioxide BUN Creatinine Glucose POC Glucose 111 H 109 H 109 H Random Insulin C-Peptide Lactic Acid Calcium Ionized Calcium Phosphorus Magnesium AST ALT Alkaline Phosphatase Lactate Dehydrogenase NT-Pro-B Natriuret Pep Total Protein Albumin Arterial Blood Glucose Arterial Blood Ionized Calcium Urine pH Urine WBC (Auto) U Epithel Cells (Auto) Vancomycin Trough Phenytoin Crossmatch 11/11/20 11/11/20 11/11/20 13:50 13:50 15:50 WBC RBC Hgb Hct MCV MCH MCHC RDW Plt Count Lymph % (Auto) [place] % (Auto) Lymph # (Auto) [place] # (Auto) Baso # (Auto) Seg Neutrophils % Seg Neuts % (Manual) Lymphocytes % (Manual) Monocytes % (Manual) Nucleated RBC % Seg Neutrophils # Seg Neutrophils # Man Lymphocytes # (Manual) Monocytes # (Manual) PT INR APTT Fibrinogen D-Dimer 1974.47 H ABG pH POC ABG pCO2 POC ABG pO2 ABG pO2 ABG HCO3 ABG Base Excess ABG Hemoglobin ABG Oxyhemoglobin ABG Sodium ABG Potassium ABG Chloride ABG Glucose VBG pH Oxyhemoglobin Carboxyhemoglobin Sodium Potassium Chloride Carbon Dioxide BUN Creatinine Glucose POC Glucose 107 H Random Insulin C-Peptide Lactic Acid Calcium Ionized Calcium Phosphorus Magnesium AST ALT Alkaline Phosphatase Lactate Dehydrogenase NT-Pro-B Natriuret Pep Total Protein Albumin Arterial Blood Glucose Arterial Blood Ionized Calcium Urine pH Urine WBC (Auto) > 182.0 H U Epithel Cells (Auto) Vancomycin Trough Phenytoin Crossmatch 11/11/20 11/12/20 11/12/20 23:17 11:33 22:20 WBC RBC Hgb Hct MCV MCH MCHC RDW Plt Count Lymph % (Auto) [place] % (Auto) Lymph # (Auto) [place] # (Auto) Baso # (Auto) Seg Neutrophils % Seg Neuts % (Manual) Lymphocytes % (Manual) Monocytes % (Manual) Nucleated RBC % Seg Neutrophils # Seg Neutrophils # Man Lymphocytes # (Manual) Monocytes # (Manual) PT INR APTT Fibrinogen D-Dimer ABG pH POC ABG pCO2 POC ABG pO2 ABG pO2 ABG HCO3 ABG Base Excess ABG Hemoglobin ABG Oxyhemoglobin ABG Sodium ABG Potassium ABG Chloride ABG Glucose VBG pH Oxyhemoglobin Carboxyhemoglobin Sodium Potassium Chloride Carbon Dioxide BUN Creatinine Glucose POC Glucose 119 H 111 H 107 H Random Insulin C-Peptide Lactic Acid Calcium Ionized Calcium Phosphorus Magnesium AST ALT Alkaline Phosphatase Lactate Dehydrogenase NT-Pro-B Natriuret Pep Total Protein Albumin Arterial Blood Glucose Arterial Blood Ionized Calcium Urine pH Urine WBC (Auto) U Epithel Cells (Auto) Vancomycin Trough Phenytoin Crossmatch 11/13/20 11/13/20 11/13/20 01:52 07:33 10:05 WBC RBC Hgb Hct MCV MCH MCHC RDW Plt Count Lymph % (Auto) [place] % (Auto) Lymph # (Auto) [place] # (Auto) Baso # (Auto) Seg Neutrophils % Seg Neuts % (Manual) Lymphocytes % (Manual) Monocytes % (Manual) Nucleated RBC % Seg Neutrophils # Seg Neutrophils # Man Lymphocytes # (Manual) Monocytes # (Manual) PT INR APTT Fibrinogen D-Dimer ABG pH POC ABG pCO2 POC ABG pO2 ABG pO2 ABG HCO3 ABG Base Excess ABG Hemoglobin ABG Oxyhemoglobin ABG Sodium ABG Potassium ABG Chloride ABG Glucose VBG pH Oxyhemoglobin Carboxyhemoglobin Sodium Potassium Chloride Carbon Dioxide BUN Creatinine Glucose 114 H POC Glucose 124 H 106 H Random Insulin C-Peptide Lactic Acid Calcium Ionized Calcium Phosphorus 4.60 H Magnesium AST ALT Alkaline Phosphatase Lactate Dehydrogenase NT-Pro-B Natriuret Pep Total Protein Albumin Arterial Blood Glucose Arterial Blood Ionized Calcium Urine pH Urine WBC (Auto) U Epithel Cells (Auto) Vancomycin Trough Phenytoin Crossmatch 11/13/20 11/13/20 11/14/20 11:50 17:20 05:26 WBC RBC Hgb Hct MCV MCH MCHC RDW Plt Count Lymph % (Auto) [place] % (Auto) Lymph # (Auto) [place] # (Auto) Baso # (Auto) Seg Neutrophils % Seg Neuts % (Manual) Lymphocytes % (Manual) Monocytes % (Manual) Nucleated RBC % Seg Neutrophils # Seg Neutrophils # Man Lymphocytes # (Manual) Monocytes # (Manual) PT INR APTT Fibrinogen D-Dimer ABG pH POC ABG pCO2 POC ABG pO2 ABG pO2 ABG HCO3 ABG Base Excess ABG Hemoglobin ABG Oxyhemoglobin ABG Sodium ABG Potassium ABG Chloride ABG Glucose VBG pH Oxyhemoglobin Carboxyhemoglobin Sodium Potassium Chloride Carbon Dioxide BUN Creatinine Glucose POC Glucose 113 H 110 H 110 H Random Insulin C-Peptide Lactic Acid Calcium Ionized Calcium Phosphorus Magnesium AST ALT Alkaline Phosphatase Lactate Dehydrogenase NT-Pro-B Natriuret Pep Total Protein Albumin Arterial Blood Glucose Arterial Blood Ionized Calcium Urine pH Urine WBC (Auto) U Epithel Cells (Auto) Vancomycin Trough Phenytoin Crossmatch 11/14/20 11/15/20 11/15/20 23:23 05:07 11:48 WBC RBC Hgb Hct MCV MCH MCHC RDW Plt Count Lymph % (Auto) [place] % (Auto) Lymph # (Auto) [place] # (Auto) Baso # (Auto) Seg Neutrophils % Seg Neuts % (Manual) Lymphocytes % (Manual) Monocytes % (Manual) Nucleated RBC % Seg Neutrophils # Seg Neutrophils # Man Lymphocytes # (Manual) Monocytes # (Manual) PT INR APTT Fibrinogen D-Dimer ABG pH POC ABG pCO2 POC ABG pO2 ABG pO2 ABG HCO3 ABG Base Excess ABG Hemoglobin ABG Oxyhemoglobin ABG Sodium ABG Potassium ABG Chloride ABG Glucose VBG pH Oxyhemoglobin Carboxyhemoglobin Sodium Potassium Chloride Carbon Dioxide BUN Creatinine Glucose POC Glucose 112 H 115 H 114 H Random Insulin C-Peptide Lactic Acid Calcium Ionized Calcium Phosphorus Magnesium AST ALT Alkaline Phosphatase Lactate Dehydrogenase NT-Pro-B Natriuret Pep Total Protein Albumin Arterial Blood Glucose Arterial Blood Ionized Calcium Urine pH Urine WBC (Auto) U Epithel Cells (Auto) Vancomycin Trough Phenytoin Crossmatch 11/16/20 11/17/20 11/18/20 05:06 00:17 05:04 WBC RBC Hgb Hct MCV MCH MCHC RDW Plt Count Lymph % (Auto) [place] % (Auto) Lymph # (Auto) [place] # (Auto) Baso # (Auto) Seg Neutrophils % Seg Neuts % (Manual) Lymphocytes % (Manual) Monocytes % (Manual) Nucleated RBC % Seg Neutrophils # Seg Neutrophils # Man Lymphocytes # (Manual) Monocytes # (Manual) PT INR APTT Fibrinogen D-Dimer ABG pH POC ABG pCO2 POC ABG pO2 ABG pO2 ABG HCO3 ABG Base Excess ABG Hemoglobin ABG Oxyhemoglobin ABG Sodium ABG Potassium ABG Chloride ABG Glucose VBG pH Oxyhemoglobin Carboxyhemoglobin Sodium Potassium Chloride Carbon Dioxide BUN Creatinine Glucose POC Glucose 110 H 115 H 111 H Random Insulin C-Peptide Lactic Acid Calcium Ionized Calcium Phosphorus Magnesium AST ALT Alkaline Phosphatase Lactate Dehydrogenase NT-Pro-B Natriuret Pep Total Protein Albumin Arterial Blood Glucose Arterial Blood Ionized Calcium Urine pH Urine WBC (Auto) U Epithel Cells (Auto) Vancomycin Trough Phenytoin Crossmatch 11/21/20 11/21/20 11/21/20 00:04 05:51 23:26 WBC RBC Hgb Hct MCV MCH MCHC RDW Plt Count Lymph % (Auto) [place] % (Auto) Lymph # (Auto) [place] # (Auto) Baso # (Auto) Seg Neutrophils % Seg Neuts % (Manual) Lymphocytes % (Manual) Monocytes % (Manual) Nucleated RBC % Seg Neutrophils # Seg Neutrophils # Man Lymphocytes # (Manual) Monocytes # (Manual) PT INR APTT Fibrinogen D-Dimer ABG pH POC ABG pCO2 POC ABG pO2 ABG pO2 ABG HCO3 ABG Base Excess ABG Hemoglobin ABG Oxyhemoglobin ABG Sodium ABG Potassium ABG Chloride ABG Glucose VBG pH Oxyhemoglobin Carboxyhemoglobin Sodium Potassium Chloride Carbon Dioxide BUN Creatinine Glucose POC Glucose 117 H 112 H 107 H Random Insulin C-Peptide Lactic Acid Calcium Ionized Calcium Phosphorus Magnesium AST ALT Alkaline Phosphatase Lactate Dehydrogenase NT-Pro-B Natriuret Pep Total Protein Albumin Arterial Blood Glucose Arterial Blood Ionized Calcium Urine pH Urine WBC (Auto) U Epithel Cells (Auto) Vancomycin Trough Phenytoin Crossmatch 11/22/20 11/22/20 11/22/20 05:24 11:59 23:19 WBC RBC Hgb Hct MCV MCH MCHC RDW Plt Count Lymph % (Auto) [place] % (Auto) Lymph # (Auto) [place] # (Auto) Baso # (Auto) Seg Neutrophils % Seg Neuts % (Manual) Lymphocytes % (Manual) Monocytes % (Manual) Nucleated RBC % Seg Neutrophils # Seg Neutrophils # Man Lymphocytes # (Manual) Monocytes # (Manual) PT INR APTT Fibrinogen D-Dimer ABG pH POC ABG pCO2 POC ABG pO2 ABG pO2 ABG HCO3 ABG Base Excess ABG Hemoglobin ABG Oxyhemoglobin ABG Sodium ABG Potassium ABG Chloride ABG Glucose VBG pH Oxyhemoglobin Carboxyhemoglobin Sodium Potassium Chloride Carbon Dioxide BUN Creatinine Glucose POC Glucose 120 H 111 H 112 H Random Insulin C-Peptide Lactic Acid Calcium Ionized Calcium Phosphorus Magnesium AST ALT Alkaline Phosphatase Lactate Dehydrogenase NT-Pro-B Natriuret Pep Total Protein Albumin Arterial Blood Glucose Arterial Blood Ionized Calcium Urine pH Urine WBC (Auto) U Epithel Cells (Auto) Vancomycin Trough Phenytoin Crossmatch 11/23/20 11/24/20 11/24/20 23:42 05:33 12:04 WBC RBC Hgb Hct MCV MCH MCHC RDW Plt Count Lymph % (Auto) [place] % (Auto) Lymph # (Auto) [place] # (Auto) Baso # (Auto) Seg Neutrophils % Seg Neuts % (Manual) Lymphocytes % (Manual) Monocytes % (Manual) Nucleated RBC % Seg Neutrophils # Seg Neutrophils # Man Lymphocytes # (Manual) Monocytes # (Manual) PT INR APTT Fibrinogen D-Dimer ABG pH POC ABG pCO2 POC ABG pO2 ABG pO2 ABG HCO3 ABG Base Excess ABG Hemoglobin ABG Oxyhemoglobin ABG Sodium ABG Potassium ABG Chloride ABG Glucose VBG pH Oxyhemoglobin Carboxyhemoglobin Sodium Potassium Chloride Carbon Dioxide BUN Creatinine Glucose POC Glucose 111 H 108 H 118 H Random Insulin C-Peptide Lactic Acid Calcium Ionized Calcium Phosphorus Magnesium AST ALT Alkaline Phosphatase Lactate Dehydrogenase NT-Pro-B Natriuret Pep Total Protein Albumin Arterial Blood Glucose Arterial Blood Ionized Calcium Urine pH Urine WBC (Auto) U Epithel Cells (Auto) Vancomycin Trough Phenytoin Crossmatch 11/25/20 11/26/20 11/26/20 23:11 04:37 04:37 WBC RBC Hgb Hct MCV MCH MCHC RDW 15.4 H Plt Count Lymph % (Auto) [place] % (Auto) 10.1 H Lymph # (Auto) [place] # (Auto) 1.0 H Baso # (Auto) Seg Neutrophils % Seg Neuts % (Manual) Lymphocytes % (Manual) Monocytes % (Manual) Nucleated RBC % Seg Neutrophils # Seg Neutrophils # Man Lymphocytes # (Manual) Monocytes # (Manual) PT INR APTT Fibrinogen D-Dimer ABG pH POC ABG pCO2 POC ABG pO2 ABG pO2 ABG HCO3 ABG Base Excess ABG Hemoglobin ABG Oxyhemoglobin ABG Sodium ABG Potassium ABG Chloride ABG Glucose VBG pH Oxyhemoglobin Carboxyhemoglobin Sodium Potassium Chloride Carbon Dioxide BUN Creatinine Glucose 109 H POC Glucose 115 H Random Insulin C-Peptide Lactic Acid Calcium Ionized Calcium Phosphorus Magnesium AST 51 H ALT Alkaline Phosphatase Lactate Dehydrogenase NT-Pro-B Natriuret Pep Total Protein Albumin Arterial Blood Glucose Arterial Blood Ionized Calcium Urine pH Urine WBC (Auto) U Epithel Cells (Auto) Vancomycin Trough Phenytoin Crossmatch 11/26/20 11/27/20 11/28/20 23:27 23:38 05:25 WBC RBC Hgb Hct MCV MCH MCHC RDW Plt Count Lymph % (Auto) [place] % (Auto) Lymph # (Auto) [place] # (Auto) Baso # (Auto) Seg Neutrophils % Seg Neuts % (Manual) Lymphocytes % (Manual) Monocytes % (Manual) Nucleated RBC % Seg Neutrophils # Seg Neutrophils # Man Lymphocytes # (Manual) Monocytes # (Manual) PT INR APTT Fibrinogen D-Dimer ABG pH POC ABG pCO2 POC ABG pO2 ABG pO2 ABG HCO3 ABG Base Excess ABG Hemoglobin ABG Oxyhemoglobin ABG Sodium ABG Potassium ABG Chloride ABG Glucose VBG pH Oxyhemoglobin Carboxyhemoglobin Sodium Potassium Chloride Carbon Dioxide BUN Creatinine Glucose POC Glucose 115 H 111 H 107 H Random Insulin C-Peptide Lactic Acid Calcium Ionized Calcium Phosphorus Magnesium AST ALT Alkaline Phosphatase Lactate Dehydrogenase NT-Pro-B Natriuret Pep Total Protein Albumin Arterial Blood Glucose Arterial Blood Ionized Calcium Urine pH Urine WBC (Auto) U Epithel Cells (Auto) Vancomycin Trough Phenytoin Crossmatch 11/28/20 11/29/20 11/29/20 11:45 23:38 23:46 WBC RBC Hgb Hct MCV MCH MCHC RDW Plt Count Lymph % (Auto) [place] % (Auto) Lymph # (Auto) [place] # (Auto) Baso # (Auto) Seg Neutrophils % Seg Neuts % (Manual) Lymphocytes % (Manual) Monocytes % (Manual) Nucleated RBC % Seg Neutrophils # Seg Neutrophils # Man Lymphocytes # (Manual) Monocytes # (Manual) PT INR APTT Fibrinogen D-Dimer ABG pH POC ABG pCO2 POC ABG pO2 ABG pO2 ABG HCO3 ABG Base Excess ABG Hemoglobin ABG Oxyhemoglobin ABG Sodium ABG Potassium ABG Chloride ABG Glucose VBG pH Oxyhemoglobin Carboxyhemoglobin Sodium Potassium Chloride Carbon Dioxide BUN Creatinine Glucose POC Glucose 112 H 109 H 117 H Random Insulin C-Peptide Lactic Acid Calcium Ionized Calcium Phosphorus Magnesium AST ALT Alkaline Phosphatase Lactate Dehydrogenase NT-Pro-B Natriuret Pep Total Protein Albumin Arterial Blood Glucose Arterial Blood Ionized Calcium Urine pH Urine WBC (Auto) U Epithel Cells (Auto) Vancomycin Trough Phenytoin Crossmatch 12/01/20 12/01/20 12/02/20 05:52 16:54 05:11 WBC RBC Hgb Hct MCV MCH MCHC RDW Plt Count Lymph % (Auto) [place] % (Auto) Lymph # (Auto) [place] # (Auto) Baso # (Auto) Seg Neutrophils % Seg Neuts % (Manual) Lymphocytes % (Manual) Monocytes % (Manual) Nucleated RBC % Seg Neutrophils # Seg Neutrophils # Man Lymphocytes # (Manual) Monocytes # (Manual) PT INR APTT Fibrinogen D-Dimer ABG pH POC ABG pCO2 POC ABG pO2 ABG pO2 ABG HCO3 ABG Base Excess ABG Hemoglobin ABG Oxyhemoglobin ABG Sodium ABG Potassium ABG Chloride ABG Glucose VBG pH Oxyhemoglobin Carboxyhemoglobin Sodium Potassium Chloride Carbon Dioxide BUN Creatinine Glucose POC Glucose 106 H 108 H 110 H Random Insulin C-Peptide Lactic Acid Calcium Ionized Calcium Phosphorus Magnesium AST ALT Alkaline Phosphatase Lactate Dehydrogenase NT-Pro-B Natriuret Pep Total Protein Albumin Arterial Blood Glucose Arterial Blood Ionized Calcium Urine pH Urine WBC (Auto) U Epithel Cells (Auto) Vancomycin Trough Phenytoin Crossmatch 12/02/20 12/02/20 12/03/20 18:01 23:49 05:36 WBC RBC Hgb Hct MCV MCH MCHC RDW Plt Count Lymph % (Auto) [place] % (Auto) Lymph # (Auto) [place] # (Auto) Baso # (Auto) Seg Neutrophils % Seg Neuts % (Manual) Lymphocytes % (Manual) Monocytes % (Manual) Nucleated RBC % Seg Neutrophils # Seg Neutrophils # Man Lymphocytes # (Manual) Monocytes # (Manual) PT INR APTT Fibrinogen D-Dimer ABG pH POC ABG pCO2 POC ABG pO2 ABG pO2 ABG HCO3 ABG Base Excess ABG Hemoglobin ABG Oxyhemoglobin ABG Sodium ABG Potassium ABG Chloride ABG Glucose VBG pH Oxyhemoglobin Carboxyhemoglobin Sodium Potassium Chloride Carbon Dioxide BUN Creatinine Glucose POC Glucose 120 H 111 H 109 H Random Insulin C-Peptide Lactic Acid Calcium Ionized Calcium Phosphorus Magnesium AST ALT Alkaline Phosphatase Lactate Dehydrogenase NT-Pro-B Natriuret Pep Total Protein Albumin Arterial Blood Glucose Arterial Blood Ionized Calcium Urine pH Urine WBC (Auto) U Epithel Cells (Auto) Vancomycin Trough Phenytoin Crossmatch 12/03/20 12/09/20 12/10/20 10:50 05:32 09:25 WBC RBC Hgb Hct MCV MCH MCHC RDW Plt Count Lymph % (Auto) [place] % (Auto) Lymph # (Auto) [place] # (Auto) Baso # (Auto) Seg Neutrophils % Seg Neuts % (Manual) Lymphocytes % (Manual) Monocytes % (Manual) Nucleated RBC % Seg Neutrophils # Seg Neutrophils # Man Lymphocytes # (Manual) Monocytes # (Manual) PT INR APTT Fibrinogen D-Dimer ABG pH POC ABG pCO2 POC ABG pO2 ABG pO2 ABG HCO3 ABG Base Excess ABG Hemoglobin ABG Oxyhemoglobin ABG Sodium ABG Potassium ABG Chloride ABG Glucose VBG pH Oxyhemoglobin Carboxyhemoglobin Sodium Potassium Chloride Carbon Dioxide BUN Creatinine Glucose POC Glucose 110 H 114 H Random Insulin C-Peptide Lactic Acid Calcium Ionized Calcium Phosphorus Magnesium AST ALT Alkaline Phosphatase Lactate Dehydrogenase NT-Pro-B Natriuret Pep Total Protein Albumin Arterial Blood Glucose Arterial Blood Ionized Calcium Urine pH Urine WBC (Auto) 50.0 H U Epithel Cells (Auto) Vancomycin Trough Phenytoin Crossmatch 12/10/20 12/10/20 12/13/20 09:37 09:37 05:12 WBC 12.5 H RBC Hgb Hct MCV MCH 26 L MCHC RDW Plt Count Lymph % (Auto) [place] % (Auto) Lymph # (Auto) [place] # (Auto) Baso # (Auto) Seg Neutrophils % Seg Neuts % (Manual) 81.0 H Lymphocytes % (Manual) Monocytes % (Manual) Nucleated RBC % Seg Neutrophils # Seg Neutrophils # Man 10.1 H Lymphocytes # (Manual) Monocytes # (Manual) PT INR APTT Fibrinogen D-Dimer ABG pH POC ABG pCO2 POC ABG pO2 ABG pO2 ABG HCO3 ABG Base Excess ABG Hemoglobin ABG Oxyhemoglobin ABG Sodium ABG Potassium ABG Chloride ABG Glucose VBG pH Oxyhemoglobin Carboxyhemoglobin Sodium 149 H Potassium Chloride 109.9 H Carbon Dioxide BUN 19 H Creatinine Glucose 105 H POC Glucose 112 H Random Insulin C-Peptide Lactic Acid Calcium Ionized Calcium Phosphorus Magnesium AST ALT Alkaline Phosphatase Lactate Dehydrogenase NT-Pro-B Natriuret Pep Total Protein Albumin Arterial Blood Glucose Arterial Blood Ionized Calcium Urine pH Urine WBC (Auto) U Epithel Cells (Auto) Vancomycin Trough Phenytoin Crossmatch 12/14/20 12/14/20 12/14/20 05:02 09:06 10:32 WBC RBC 5.30 H Hgb Hct 43.0 H MCV MCH 25 L MCHC RDW Plt Count Lymph % (Auto) [place] % (Auto) 7.8 H Lymph # (Auto) [place] # (Auto) Baso # (Auto) Seg Neutrophils % Seg Neuts % (Manual) Lymphocytes % (Manual) Monocytes % (Manual) Nucleated RBC % Seg Neutrophils # Seg Neutrophils # Man Lymphocytes # (Manual) Monocytes # (Manual) PT INR APTT Fibrinogen D-Dimer ABG pH POC ABG pCO2 POC ABG pO2 ABG pO2 ABG HCO3 ABG Base Excess ABG Hemoglobin ABG Oxyhemoglobin ABG Sodium ABG Potassium ABG Chloride ABG Glucose VBG pH Oxyhemoglobin Carboxyhemoglobin Sodium 155 H Potassium Chloride 117.2 H Carbon Dioxide BUN 21 H Creatinine Glucose 104 H POC Glucose 109 H Random Insulin C-Peptide Lactic Acid Calcium Ionized Calcium Phosphorus Magnesium AST 63 H ALT Alkaline Phosphatase Lactate Dehydrogenase NT-Pro-B Natriuret Pep Total Protein 8.3 H Albumin 3.8 L Arterial Blood Glucose Arterial Blood Ionized Calcium Urine pH Urine WBC (Auto) U Epithel Cells (Auto) Vancomycin Trough Phenytoin Crossmatch 12/15/20 12/15/20 12/16/20 05:40 11:56 05:42 WBC RBC Hgb Hct MCV MCH MCHC RDW Plt Count Lymph % (Auto) [place] % (Auto) Lymph # (Auto) [place] # (Auto) Baso # (Auto) Seg Neutrophils % Seg Neuts % (Manual) Lymphocytes % (Manual) Monocytes % (Manual) Nucleated RBC % Seg Neutrophils # Seg Neutrophils # Man Lymphocytes # (Manual) Monocytes # (Manual) PT INR APTT Fibrinogen D-Dimer ABG pH POC ABG pCO2 POC ABG pO2 ABG pO2 ABG HCO3 ABG Base Excess ABG Hemoglobin ABG Oxyhemoglobin ABG Sodium ABG Potassium ABG Chloride ABG Glucose VBG pH Oxyhemoglobin Carboxyhemoglobin Sodium Potassium Chloride Carbon Dioxide BUN Creatinine Glucose POC Glucose 125 H 107 H 108 H Random Insulin C-Peptide Lactic Acid Calcium Ionized Calcium Phosphorus Magnesium AST ALT Alkaline Phosphatase Lactate Dehydrogenase NT-Pro-B Natriuret Pep Total Protein Albumin Arterial Blood Glucose Arterial Blood Ionized Calcium Urine pH Urine WBC (Auto) U Epithel Cells (Auto) Vancomycin Trough Phenytoin Crossmatch 12/16/20 12/16/20 12/17/20 08:00 23:26 05:49 WBC RBC Hgb Hct MCV MCH MCHC RDW Plt Count Lymph % (Auto) [place] % (Auto) Lymph # (Auto) [place] # (Auto) Baso # (Auto) Seg Neutrophils % Seg Neuts % (Manual) Lymphocytes % (Manual) Monocytes % (Manual) Nucleated RBC % Seg Neutrophils # Seg Neutrophils # Man Lymphocytes # (Manual) Monocytes # (Manual) PT INR APTT Fibrinogen D-Dimer ABG pH POC ABG pCO2 POC ABG pO2 ABG pO2 ABG HCO3 ABG Base Excess ABG Hemoglobin ABG Oxyhemoglobin ABG Sodium ABG Potassium ABG Chloride ABG Glucose VBG pH Oxyhemoglobin Carboxyhemoglobin Sodium 156 H Potassium Chloride 117.9 H Carbon Dioxide BUN 24 H Creatinine Glucose 109 H POC Glucose 111 H 109 H Random Insulin C-Peptide Lactic Acid Calcium Ionized Calcium Phosphorus Magnesium AST ALT Alkaline Phosphatase Lactate Dehydrogenase NT-Pro-B Natriuret Pep Total Protein Albumin Arterial Blood Glucose Arterial Blood Ionized Calcium Urine pH Urine WBC (Auto) U Epithel Cells (Auto) Vancomycin Trough Phenytoin Crossmatch 12/17/20 12/17/20 12/18/20 11:41 23:27 04:57 WBC RBC 5.16 H Hgb Hct MCV MCH 25 L MCHC RDW Plt Count Lymph % (Auto) [place] % (Auto) Lymph # (Auto) [place] # (Auto) Baso # (Auto) Seg Neutrophils % Seg Neuts % (Manual) Lymphocytes % (Manual) Monocytes % (Manual) Nucleated RBC % Seg Neutrophils # Seg Neutrophils # Man Lymphocytes # (Manual) Monocytes # (Manual) PT INR APTT Fibrinogen D-Dimer ABG pH POC ABG pCO2 POC ABG pO2 ABG pO2 ABG HCO3 ABG Base Excess ABG Hemoglobin ABG Oxyhemoglobin ABG Sodium ABG Potassium ABG Chloride ABG Glucose VBG pH Oxyhemoglobin Carboxyhemoglobin Sodium Potassium Chloride Carbon Dioxide BUN Creatinine Glucose POC Glucose 108 H 108 H Random Insulin C-Peptide Lactic Acid Calcium Ionized Calcium Phosphorus Magnesium AST ALT Alkaline Phosphatase Lactate Dehydrogenase NT-Pro-B Natriuret Pep Total Protein Albumin Arterial Blood Glucose Arterial Blood Ionized Calcium Urine pH Urine WBC (Auto) U Epithel Cells (Auto) Vancomycin Trough Phenytoin Crossmatch 12/18/20 12/18/2012/19/21 04:57 11:22 05:21 WBC RBC Hgb Hct MCV MCH MCHC RDW Plt Count Lymph % (Auto) [place] % (Auto) Lymph # (Auto) [place] # (Auto) Baso # (Auto) Seg Neutrophils % Seg Neuts % (Manual) Lymphocytes % (Manual) Monocytes % (Manual) Nucleated RBC % Seg Neutrophils # Seg Neutrophils # Man Lymphocytes # (Manual) Monocytes # (Manual) PT INR APTT Fibrinogen D-Dimer ABG pH POC ABG pCO2 POC ABG pO2 ABG pO2 ABG HCO3 ABG Base Excess ABG Hemoglobin ABG Oxyhemoglobin ABG Sodium ABG Potassium ABG Chloride ABG Glucose VBG pH Oxyhemoglobin Carboxyhemoglobin Sodium 150 H Potassium Chloride 110.8 H Carbon Dioxide BUN 20 H Creatinine Glucose POC Glucose 107 H 108 H Random Insulin C-Peptide Lactic Acid Calcium Ionized Calcium Phosphorus Magnesium AST ALT Alkaline Phosphatase Lactate Dehydrogenase NT-Pro-B Natriuret Pep Total Protein Albumin Arterial Blood Glucose Arterial Blood Ionized Calcium Urine pH Urine WBC (Auto) U Epithel Cells (Auto) Vancomycin Trough Phenytoin Crossmatch 12/19/20 12/20/20 12/22/20 23:28 23:54 11:03 WBC RBC Hgb Hct MCV MCH MCHC RDW Plt Count Lymph % (Auto) [place] % (Auto) Lymph # (Auto) [place] # (Auto) Baso # (Auto) Seg Neutrophils % Seg Neuts % (Manual) Lymphocytes % (Manual) Monocytes % (Manual) Nucleated RBC % Seg Neutrophils # Seg Neutrophils # Man Lymphocytes # (Manual) Monocytes # (Manual) PT INR APTT Fibrinogen D-Dimer ABG pH POC ABG pCO2 POC ABG pO2 ABG pO2 ABG HCO3 ABG Base Excess ABG Hemoglobin ABG Oxyhemoglobin ABG Sodium ABG Potassium ABG Chloride ABG Glucose VBG pH Oxyhemoglobin Carboxyhemoglobin Sodium Potassium Chloride Carbon Dioxide BUN Creatinine 0.5 L Glucose 110 H POC Glucose 128 H 108 H Random Insulin C-Peptide Lactic Acid Calcium Ionized Calcium Phosphorus Magnesium AST 45 H ALT Alkaline Phosphatase Lactate Dehydrogenase NT-Pro-B Natriuret Pep Total Protein Albumin 3.8 L Arterial Blood Glucose Arterial Blood Ionized Calcium Urine pH Urine WBC (Auto) U Epithel Cells (Auto) Vancomycin Trough Phenytoin Crossmatch 12/23/20 12/23/20 12/25/20 16:50 23:30 00:34 WBC RBC Hgb Hct MCV MCH MCHC RDW Plt Count Lymph % (Auto) [place] % (Auto) Lymph # (Auto) [place] # (Auto) Baso # (Auto) Seg Neutrophils % Seg Neuts % (Manual) Lymphocytes % (Manual) Monocytes % (Manual) Nucleated RBC % Seg Neutrophils # Seg Neutrophils # Man Lymphocytes # (Manual) Monocytes # (Manual) PT INR APTT Fibrinogen D-Dimer ABG pH POC ABG pCO2 POC ABG pO2 ABG pO2 ABG HCO3 ABG Base Excess ABG Hemoglobin ABG Oxyhemoglobin ABG Sodium ABG Potassium ABG Chloride ABG Glucose VBG pH Oxyhemoglobin Carboxyhemoglobin Sodium Potassium Chloride Carbon Dioxide BUN Creatinine Glucose POC Glucose 115 H 111 H 106 H Random Insulin C-Peptide Lactic Acid Calcium Ionized Calcium Phosphorus Magnesium AST ALT Alkaline Phosphatase Lactate Dehydrogenase NT-Pro-B Natriuret Pep Total Protein Albumin Arterial Blood Glucose Arterial Blood Ionized Calcium Urine pH Urine WBC (Auto) U Epithel Cells (Auto) Vancomycin Trough Phenytoin Crossmatch 12/26/20 12/26/20 12/26/20 06:14 11:49 23:00 WBC RBC Hgb Hct MCV MCH MCHC RDW Plt Count Lymph % (Auto) [place] % (Auto) Lymph # (Auto) [place] # (Auto) Baso # (Auto) Seg Neutrophils % Seg Neuts % (Manual) Lymphocytes % (Manual) Monocytes % (Manual) Nucleated RBC % Seg Neutrophils # Seg Neutrophils # Man Lymphocytes # (Manual) Monocytes # (Manual) PT INR APTT Fibrinogen D-Dimer ABG pH POC ABG pCO2 POC ABG pO2 ABG pO2 ABG HCO3 ABG Base Excess ABG Hemoglobin ABG Oxyhemoglobin ABG Sodium ABG Potassium ABG Chloride ABG Glucose VBG pH Oxyhemoglobin Carboxyhemoglobin Sodium Potassium Chloride Carbon Dioxide BUN Creatinine Glucose POC Glucose 107 H 111 H 107 H Random Insulin C-Peptide Lactic Acid Calcium Ionized Calcium Phosphorus Magnesium AST ALT Alkaline Phosphatase Lactate Dehydrogenase NT-Pro-B Natriuret Pep Total Protein Albumin Arterial Blood Glucose Arterial Blood Ionized Calcium Urine pH Urine WBC (Auto) U Epithel Cells (Auto) Vancomycin Trough Phenytoin Crossmatch 12/27/20 12/30/20 01/01/21 22:25 06:48 11:44 WBC RBC Hgb Hct MCV MCH MCHC RDW Plt Count Lymph % (Auto) [place] % (Auto) Lymph # (Auto) [place] # (Auto) Baso # (Auto) Seg Neutrophils % Seg Neuts % (Manual) Lymphocytes % (Manual) Monocytes % (Manual) Nucleated RBC % Seg Neutrophils # Seg Neutrophils # Man Lymphocytes # (Manual) Monocytes # (Manual) PT INR APTT Fibrinogen D-Dimer ABG pH POC ABG pCO2 POC ABG pO2 ABG pO2 ABG HCO3 ABG Base Excess ABG Hemoglobin ABG Oxyhemoglobin ABG Sodium ABG Potassium ABG Chloride ABG Glucose VBG pH Oxyhemoglobin Carboxyhemoglobin Sodium Potassium Chloride Carbon Dioxide BUN Creatinine Glucose POC Glucose 106 H 107 H Random Insulin C-Peptide Lactic Acid Calcium Ionized Calcium Phosphorus Magnesium AST ALT Alkaline Phosphatase Lactate Dehydrogenase NT-Pro-B Natriuret Pep Total Protein Albumin Arterial Blood Glucose Arterial Blood Ionized Calcium Urine pH Urine WBC (Auto) U Epithel Cells (Auto) 16.0 H Vancomycin Trough Phenytoin Crossmatch 01/01/21 01/02/21 01/02/21 16:21 00:32 06:47 WBC RBC Hgb Hct MCV MCH MCHC RDW Plt Count Lymph % (Auto) [place] % (Auto) Lymph # (Auto) [place] # (Auto) Baso # (Auto) Seg Neutrophils % Seg Neuts % (Manual) Lymphocytes % (Manual) Monocytes % (Manual) Nucleated RBC % Seg Neutrophils # Seg Neutrophils # Man Lymphocytes # (Manual) Monocytes # (Manual) PT INR APTT Fibrinogen D-Dimer ABG pH POC ABG pCO2 POC ABG pO2 ABG pO2 ABG HCO3 ABG Base Excess ABG Hemoglobin ABG Oxyhemoglobin ABG Sodium ABG Potassium ABG Chloride ABG Glucose VBG pH Oxyhemoglobin Carboxyhemoglobin Sodium 152 H Potassium Chloride 117.8 H Carbon Dioxide 20 L BUN 21 H Creatinine Glucose 125 H POC Glucose 106 H 113 H Random Insulin C-Peptide Lactic Acid Calcium Ionized Calcium Phosphorus Magnesium AST ALT Alkaline Phosphatase Lactate Dehydrogenase NT-Pro-B Natriuret Pep Total Protein Albumin Arterial Blood Glucose Arterial Blood Ionized Calcium Urine pH Urine WBC (Auto) U Epithel Cells (Auto) Vancomycin Trough Phenytoin Crossmatch 01/02/21 01/02/21 01/02/21 06:47 12:15 23:44 WBC RBC 5.61 H Hgb Hct 43.8 H MCV 78 L MCH 25 L MCHC RDW Plt Count Lymph % (Auto) [place] % (Auto) 9.5 H Lymph # (Auto) [place] # (Auto) 0.9 H Baso # (Auto) Seg Neutrophils % Seg Neuts % (Manual) Lymphocytes % (Manual) Monocytes % (Manual) Nucleated RBC % Seg Neutrophils # Seg Neutrophils # Man Lymphocytes # (Manual) Monocytes # (Manual) PT INR APTT Fibrinogen D-Dimer ABG pH POC ABG pCO2 POC ABG pO2 ABG pO2 ABG HCO3 ABG Base Excess ABG Hemoglobin ABG Oxyhemoglobin ABG Sodium ABG Potassium ABG Chloride ABG Glucose VBG pH Oxyhemoglobin Carboxyhemoglobin Sodium Potassium Chloride Carbon Dioxide BUN Creatinine Glucose POC Glucose 111 H 120 H Random Insulin C-Peptide Lactic Acid Calcium Ionized Calcium Phosphorus Magnesium AST ALT Alkaline Phosphatase Lactate Dehydrogenase NT-Pro-B Natriuret Pep Total Protein Albumin Arterial Blood Glucose Arterial Blood Ionized Calcium Urine pH Urine WBC (Auto) U Epithel Cells (Auto) Vancomycin Trough Phenytoin Crossmatch 01/03/21 01/03/21 01/04/21 05:04 06:18 05:56 WBC RBC Hgb Hct MCV MCH MCHC RDW Plt Count Lymph % (Auto) [place] % (Auto) Lymph # (Auto) [place] # (Auto) Baso # (Auto) Seg Neutrophils % Seg Neuts % (Manual) Lymphocytes % (Manual) Monocytes % (Manual) Nucleated RBC % Seg Neutrophils # Seg Neutrophils # Man Lymphocytes # (Manual) Monocytes # (Manual) PT INR APTT Fibrinogen D-Dimer ABG pH POC ABG pCO2 POC ABG pO2 ABG pO2 ABG HCO3 ABG Base Excess ABG Hemoglobin ABG Oxyhemoglobin ABG Sodium ABG Potassium ABG Chloride ABG Glucose VBG pH Oxyhemoglobin Carboxyhemoglobin Sodium 153 H Potassium Chloride 119.1 H 109.8 H Carbon Dioxide 20 L BUN 18 H Creatinine 0.5 L Glucose 110 H POC Glucose 113 H Random Insulin C-Peptide Lactic Acid Calcium Ionized Calcium Phosphorus Magnesium AST ALT Alkaline Phosphatase Lactate Dehydrogenase NT-Pro-B Natriuret Pep Total Protein Albumin Arterial Blood Glucose Arterial Blood Ionized Calcium Urine pH Urine WBC (Auto) U Epithel Cells (Auto) Vancomycin Trough Phenytoin Crossmatch 01/04/21 01/04/21 01/06/21 06:11 11:52 05:37 WBC RBC Hgb Hct MCV MCH MCHC RDW Plt Count Lymph % (Auto) [place] % (Auto) Lymph # (Auto) [place] # (Auto) Baso # (Auto) Seg Neutrophils % Seg Neuts % (Manual) Lymphocytes % (Manual) Monocytes % (Manual) Nucleated RBC % Seg Neutrophils # Seg Neutrophils # Man Lymphocytes # (Manual) Monocytes # (Manual) PT INR APTT Fibrinogen D-Dimer ABG pH POC ABG pCO2 POC ABG pO2 ABG pO2 ABG HCO3 ABG Base Excess ABG Hemoglobin ABG Oxyhemoglobin ABG Sodium ABG Potassium ABG Chloride ABG Glucose VBG pH Oxyhemoglobin Carboxyhemoglobin Sodium Potassium Chloride Carbon Dioxide BUN Creatinine Glucose POC Glucose 106 H 106 H 106 H Random Insulin C-Peptide Lactic Acid Calcium Ionized Calcium Phosphorus Magnesium AST ALT Alkaline Phosphatase Lactate Dehydrogenase NT-Pro-B Natriuret Pep Total Protein Albumin Arterial Blood Glucose Arterial Blood Ionized Calcium Urine pH Urine WBC (Auto) U Epithel Cells (Auto) Vancomycin Trough Phenytoin Crossmatch 01/07/21 01/08/21 01/09/21 06:32 06:02 04:27 WBC RBC 5.22 H Hgb Hct MCV 76 L MCH 25 L MCHC RDW Plt Count Lymph % (Auto) [place] % (Auto) 9.7 H Lymph # (Auto) [place] # (Auto) Baso # (Auto) Seg Neutrophils % Seg Neuts % (Manual) Lymphocytes % (Manual) Monocytes % (Manual) Nucleated RBC % Seg Neutrophils # Seg Neutrophils # Man Lymphocytes # (Manual) Monocytes # (Manual) PT INR APTT Fibrinogen D-Dimer ABG pH POC ABG pCO2 POC ABG pO2 ABG pO2 ABG HCO3 ABG Base Excess ABG Hemoglobin ABG Oxyhemoglobin ABG Sodium ABG Potassium ABG Chloride ABG Glucose VBG pH Oxyhemoglobin Carboxyhemoglobin Sodium Potassium Chloride Carbon Dioxide BUN Creatinine Glucose POC Glucose 115 H 129 H Random Insulin C-Peptide Lactic Acid Calcium Ionized Calcium Phosphorus Magnesium AST ALT Alkaline Phosphatase Lactate Dehydrogenase NT-Pro-B Natriuret Pep Total Protein Albumin Arterial Blood Glucose Arterial Blood Ionized Calcium Urine pH Urine WBC (Auto) U Epithel Cells (Auto) Vancomycin Trough Phenytoin Crossmatch 01/09/21 01/09/21 01/10/21 04:27 16:14 12:41 WBC RBC Hgb Hct MCV MCH MCHC RDW Plt Count Lymph % (Auto) [place] % (Auto) Lymph # (Auto) [place] # (Auto) Baso # (Auto) Seg Neutrophils % Seg Neuts % (Manual) Lymphocytes % (Manual) Monocytes % (Manual) Nucleated RBC % Seg Neutrophils # Seg Neutrophils # Man Lymphocytes # (Manual) Monocytes # (Manual) PT INR APTT Fibrinogen D-Dimer ABG pH POC ABG pCO2 POC ABG pO2 ABG pO2 ABG HCO3 ABG Base Excess ABG Hemoglobin ABG Oxyhemoglobin ABG Sodium ABG Potassium ABG Chloride ABG Glucose VBG pH Oxyhemoglobin Carboxyhemoglobin Sodium Potassium Chloride Carbon Dioxide BUN Creatinine 0.5 L Glucose POC Glucose 111 H 115 H Random Insulin C-Peptide Lactic Acid Calcium Ionized Calcium Phosphorus Magnesium AST ALT Alkaline Phosphatase Lactate Dehydrogenase NT-Pro-B Natriuret Pep Total Protein Albumin Arterial Blood Glucose Arterial Blood Ionized Calcium Urine pH Urine WBC (Auto) U Epithel Cells (Auto) Vancomycin Trough Phenytoin Crossmatch 01/13/21 01/17/21 01/17/21 05:48 07:40 07:40 WBC RBC 5.23 H Hgb Hct MCV 75 L MCH 24 L MCHC RDW Plt Count Lymph % (Auto) [place] % (Auto) 8.2 H Lymph # (Auto) [place] # (Auto) Baso # (Auto) Seg Neutrophils % Seg Neuts % (Manual) Lymphocytes % (Manual) Monocytes % (Manual) Nucleated RBC % Seg Neutrophils # Seg Neutrophils # Man Lymphocytes # (Manual) Monocytes # (Manual) PT INR APTT Fibrinogen D-Dimer ABG pH POC ABG pCO2 POC ABG pO2 ABG pO2 ABG HCO3 ABG Base Excess ABG Hemoglobin ABG Oxyhemoglobin ABG Sodium ABG Potassium ABG Chloride ABG Glucose VBG pH Oxyhemoglobin Carboxyhemoglobin Sodium 135 L Potassium Chloride Carbon Dioxide BUN Creatinine Glucose POC Glucose 110 H Random Insulin C-Peptide Lactic Acid Calcium Ionized Calcium Phosphorus Magnesium AST ALT Alkaline Phosphatase Lactate Dehydrogenase NT-Pro-B Natriuret Pep Total Protein Albumin Arterial Blood Glucose Arterial Blood Ionized Calcium Urine pH Urine WBC (Auto) U Epithel Cells (Auto) Vancomycin Trough Phenytoin Crossmatch 01/17/21 01/18/21 01/18/21 23:41 08:47 17:54 WBC RBC Hgb Hct MCV MCH MCHC RDW Plt Count Lymph % (Auto) [place] % (Auto) Lymph # (Auto) [place] # (Auto) Baso # (Auto) Seg Neutrophils % Seg Neuts % (Manual) Lymphocytes % (Manual) Monocytes % (Manual) Nucleated RBC % Seg Neutrophils # Seg Neutrophils # Man Lymphocytes # (Manual) Monocytes # (Manual) PT INR APTT Fibrinogen D-Dimer ABG pH POC ABG pCO2 POC ABG pO2 ABG pO2 ABG HCO3 ABG Base Excess ABG Hemoglobin ABG Oxyhemoglobin ABG Sodium ABG Potassium ABG Chloride ABG Glucose VBG pH Oxyhemoglobin Carboxyhemoglobin Sodium Potassium Chloride Carbon Dioxide BUN Creatinine Glucose POC Glucose 110 H 114 H Random Insulin C-Peptide Lactic Acid Calcium Ionized Calcium Phosphorus Magnesium AST ALT Alkaline Phosphatase Lactate Dehydrogenase NT-Pro-B Natriuret Pep Total Protein Albumin Arterial Blood Glucose Arterial Blood Ionized Calcium Urine pH 8.0 H Urine WBC (Auto) U Epithel Cells (Auto) Vancomycin Trough Phenytoin Crossmatch 01/19/21 01/19/21 01/20/21 05:18 10:47 06:10 WBC RBC Hgb Hct MCV MCH MCHC RDW Plt Count Lymph % (Auto) [place] % (Auto) Lymph # (Auto) [place] # (Auto) Baso # (Auto) Seg Neutrophils % Seg Neuts % (Manual) Lymphocytes % (Manual) Monocytes % (Manual) Nucleated RBC % Seg Neutrophils # Seg Neutrophils # Man Lymphocytes # (Manual) Monocytes # (Manual) PT INR APTT Fibrinogen D-Dimer ABG pH POC ABG pCO2 POC ABG pO2 ABG pO2 ABG HCO3 ABG Base Excess ABG Hemoglobin ABG Oxyhemoglobin ABG Sodium ABG Potassium ABG Chloride ABG Glucose VBG pH Oxyhemoglobin Carboxyhemoglobin Sodium Potassium Chloride Carbon Dioxide BUN Creatinine Glucose POC Glucose 110 H 124 H 110 H Random Insulin C-Peptide Lactic Acid Calcium Ionized Calcium Phosphorus Magnesium AST ALT Alkaline Phosphatase Lactate Dehydrogenase NT-Pro-B Natriuret Pep Total Protein Albumin Arterial Blood Glucose Arterial Blood Ionized Calcium Urine pH Urine WBC (Auto) U Epithel Cells (Auto) Vancomycin Trough Phenytoin Crossmatch 01/20/21 01/21/21 01/23/21 22:13 22:44 06:21 WBC RBC Hgb Hct MCV MCH MCHC RDW Plt Count Lymph % (Auto) [place] % (Auto) Lymph # (Auto) [place] # (Auto) Baso # (Auto) Seg Neutrophils % Seg Neuts % (Manual) Lymphocytes % (Manual) Monocytes % (Manual) Nucleated RBC % Seg Neutrophils # Seg Neutrophils # Man Lymphocytes # (Manual) Monocytes # (Manual) PT INR APTT Fibrinogen D-Dimer ABG pH POC ABG pCO2 POC ABG pO2 ABG pO2 ABG HCO3 ABG Base Excess ABG Hemoglobin ABG Oxyhemoglobin ABG Sodium ABG Potassium ABG Chloride ABG Glucose VBG pH Oxyhemoglobin Carboxyhemoglobin Sodium Potassium Chloride Carbon Dioxide BUN Creatinine Glucose POC Glucose 109 H 120 H 106 H Random Insulin C-Peptide Lactic Acid Calcium Ionized Calcium Phosphorus Magnesium AST ALT Alkaline Phosphatase Lactate Dehydrogenase NT-Pro-B Natriuret Pep Total Protein Albumin Arterial Blood Glucose Arterial Blood Ionized Calcium Urine pH Urine WBC (Auto) U Epithel Cells (Auto) Vancomycin Trough Phenytoin Crossmatch 01/23/21 01/24/21 01/24/21 23:54 04:18 04:18 WBC RBC 5.23 H Hgb Hct MCV 75 L MCH 25 L MCHC RDW Plt Count Lymph % (Auto) [place] % (Auto) 11.8 H Lymph # (Auto) [place] # (Auto) 0.9 H Baso # (Auto) Seg Neutrophils % Seg Neuts % (Manual) Lymphocytes % (Manual) Monocytes % (Manual) Nucleated RBC % Seg Neutrophils # Seg Neutrophils # Man Lymphocytes # (Manual) Monocytes # (Manual) PT INR APTT Fibrinogen D-Dimer ABG pH POC ABG pCO2 POC ABG pO2 ABG pO2 ABG HCO3 ABG Base Excess ABG Hemoglobin ABG Oxyhemoglobin ABG Sodium ABG Potassium ABG Chloride ABG Glucose VBG pH Oxyhemoglobin Carboxyhemoglobin Sodium Potassium Chloride Carbon Dioxide BUN Creatinine Glucose POC Glucose 109 H Random Insulin C-Peptide Lactic Acid Calcium Ionized Calcium Phosphorus Magnesium AST ALT Alkaline Phosphatase Lactate Dehydrogenase NT-Pro-B Natriuret Pep Total Protein Albumin 3.7 L Arterial Blood Glucose Arterial Blood Ionized Calcium Urine pH Urine WBC (Auto) U Epithel Cells (Auto) Vancomycin Trough Phenytoin Crossmatch 01/24/21 01/25/21 01/26/21 05:11 00:29 05:33 WBC RBC Hgb Hct MCV MCH MCHC RDW Plt Count Lymph % (Auto) [place] % (Auto) Lymph # (Auto) [place] # (Auto) Baso # (Auto) Seg Neutrophils % Seg Neuts % (Manual) Lymphocytes % (Manual) Monocytes % (Manual) Nucleated RBC % Seg Neutrophils # Seg Neutrophils # Man Lymphocytes # (Manual) Monocytes # (Manual) PT INR APTT Fibrinogen D-Dimer ABG pH POC ABG pCO2 POC ABG pO2 ABG pO2 ABG HCO3 ABG Base Excess ABG Hemoglobin ABG Oxyhemoglobin ABG Sodium ABG Potassium ABG Chloride ABG Glucose VBG pH Oxyhemoglobin Carboxyhemoglobin Sodium Potassium Chloride Carbon Dioxide BUN Creatinine Glucose POC Glucose 116 H 106 H 109 H Random Insulin C-Peptide Lactic Acid Calcium Ionized Calcium Phosphorus Magnesium AST ALT Alkaline Phosphatase Lactate Dehydrogenase NT-Pro-B Natriuret Pep Total Protein Albumin Arterial Blood Glucose Arterial Blood Ionized Calcium Urine pH Urine WBC (Auto) U Epithel Cells (Auto) Vancomycin Trough Phenytoin Crossmatch 01/27/21 01/27/21 01/27/21 00:05 06:32 10:58 WBC RBC Hgb Hct MCV MCH MCHC RDW Plt Count Lymph % (Auto) [place] % (Auto) Lymph # (Auto) [place] # (Auto) Baso # (Auto) Seg Neutrophils % Seg Neuts % (Manual) Lymphocytes % (Manual) Monocytes % (Manual) Nucleated RBC % Seg Neutrophils # Seg Neutrophils # Man Lymphocytes # (Manual) Monocytes # (Manual) PT INR APTT Fibrinogen D-Dimer ABG pH POC ABG pCO2 POC ABG pO2 ABG pO2 ABG HCO3 ABG Base Excess ABG Hemoglobin ABG Oxyhemoglobin ABG Sodium ABG Potassium ABG Chloride ABG Glucose VBG pH Oxyhemoglobin Carboxyhemoglobin Sodium Potassium Chloride Carbon Dioxide BUN Creatinine Glucose POC Glucose 116 H 108 H 126 H Random Insulin C-Peptide Lactic Acid Calcium Ionized Calcium Phosphorus Magnesium AST ALT Alkaline Phosphatase Lactate Dehydrogenase NT-Pro-B Natriuret Pep Total Protein Albumin Arterial Blood Glucose Arterial Blood Ionized Calcium Urine pH Urine WBC (Auto) U Epithel Cells (Auto) Vancomycin Trough Phenytoin Crossmatch 01/27/21 01/28/21 01/28/21 17:01 06:24 11:41 WBC RBC Hgb Hct MCV MCH MCHC RDW Plt Count Lymph % (Auto) [place] % (Auto) Lymph # (Auto) [place] # (Auto) Baso # (Auto) Seg Neutrophils % Seg Neuts % (Manual) Lymphocytes % (Manual) Monocytes % (Manual) Nucleated RBC % Seg Neutrophils # Seg Neutrophils # Man Lymphocytes # (Manual) Monocytes # (Manual) PT INR APTT Fibrinogen D-Dimer ABG pH POC ABG pCO2 POC ABG pO2 ABG pO2 ABG HCO3 ABG Base Excess ABG Hemoglobin ABG Oxyhemoglobin ABG Sodium ABG Potassium ABG Chloride ABG Glucose VBG pH Oxyhemoglobin Carboxyhemoglobin Sodium Potassium Chloride Carbon Dioxide BUN Creatinine Glucose POC Glucose 113 H 112 H 127 H Random Insulin C-Peptide Lactic Acid Calcium Ionized Calcium Phosphorus Magnesium AST ALT Alkaline Phosphatase Lactate Dehydrogenase NT-Pro-B Natriuret Pep Total Protein Albumin Arterial Blood Glucose Arterial Blood Ionized Calcium Urine pH Urine WBC (Auto) U Epithel Cells (Auto) Vancomycin Trough Phenytoin Crossmatch 01/28/21 01/29/21 01/29/21 17:44 05:47 12:04 WBC RBC 5.27 H Hgb Hct MCV 75 L MCH 24 L MCHC RDW Plt Count Lymph % (Auto) [place] % (Auto) 10.3 H Lymph # (Auto) [place] # (Auto) Baso # (Auto) Seg Neutrophils % Seg Neuts % (Manual) Lymphocytes % (Manual) Monocytes % (Manual) Nucleated RBC % Seg Neutrophils # Seg Neutrophils # Man Lymphocytes # (Manual) Monocytes # (Manual) PT INR APTT Fibrinogen D-Dimer ABG pH POC ABG pCO2 POC ABG pO2 ABG pO2 ABG HCO3 ABG Base Excess ABG Hemoglobin ABG Oxyhemoglobin ABG Sodium ABG Potassium ABG Chloride ABG Glucose VBG pH Oxyhemoglobin Carboxyhemoglobin Sodium Potassium Chloride Carbon Dioxide BUN Creatinine Glucose POC Glucose 108 H 107 H Random Insulin C-Peptide Lactic Acid Calcium Ionized Calcium Phosphorus Magnesium AST ALT Alkaline Phosphatase Lactate Dehydrogenase NT-Pro-B Natriuret Pep Total Protein Albumin Arterial Blood Glucose Arterial Blood Ionized Calcium Urine pH Urine WBC (Auto) U Epithel Cells (Auto) Vancomycin Trough Phenytoin Crossmatch 01/29/21 01/31/21 02/01/21 23:01 16:55 01:01 WBC RBC Hgb Hct MCV MCH MCHC RDW Plt Count Lymph % (Auto) [place] % (Auto) Lymph # (Auto) [place] # (Auto) Baso # (Auto) Seg Neutrophils % Seg Neuts % (Manual) Lymphocytes % (Manual) Monocytes % (Manual) Nucleated RBC % Seg Neutrophils # Seg Neutrophils # Man Lymphocytes # (Manual) Monocytes # (Manual) PT INR APTT Fibrinogen D-Dimer ABG pH POC ABG pCO2 POC ABG pO2 ABG pO2 ABG HCO3 ABG Base Excess ABG Hemoglobin ABG Oxyhemoglobin ABG Sodium ABG Potassium ABG Chloride ABG Glucose VBG pH Oxyhemoglobin Carboxyhemoglobin Sodium Potassium Chloride Carbon Dioxide BUN Creatinine Glucose POC Glucose 108 H 110 H 113 H Random Insulin C-Peptide Lactic Acid Calcium Ionized Calcium Phosphorus Magnesium AST ALT Alkaline Phosphatase Lactate Dehydrogenase NT-Pro-B Natriuret Pep Total Protein Albumin Arterial Blood Glucose Arterial Blood Ionized Calcium Urine pH Urine WBC (Auto) U Epithel Cells (Auto) Vancomycin Trough Phenytoin Crossmatch 02/03/21 02/03/21 02/06/21 06:52 07:17 06:42 WBC RBC Hgb Hct MCV MCH MCHC RDW Plt Count Lymph % (Auto) [place] % (Auto) Lymph # (Auto) [place] # (Auto) Baso # (Auto) Seg Neutrophils % Seg Neuts % (Manual) Lymphocytes % (Manual) Monocytes % (Manual) Nucleated RBC % Seg Neutrophils # Seg Neutrophils # Man Lymphocytes # (Manual) Monocytes # (Manual) PT INR APTT Fibrinogen D-Dimer ABG pH POC ABG pCO2 POC ABG pO2 ABG pO2 ABG HCO3 ABG Base Excess ABG Hemoglobin ABG Oxyhemoglobin ABG Sodium ABG Potassium ABG Chloride ABG Glucose VBG pH Oxyhemoglobin Carboxyhemoglobin Sodium Potassium Chloride Carbon Dioxide BUN Creatinine 0.5 L Glucose POC Glucose 68 L 112 H Random Insulin C-Peptide Lactic Acid Calcium Ionized Calcium Phosphorus Magnesium AST ALT Alkaline Phosphatase Lactate Dehydrogenase NT-Pro-B Natriuret Pep Total Protein Albumin Arterial Blood Glucose Arterial Blood Ionized Calcium Urine pH Urine WBC (Auto) U Epithel Cells (Auto) Vancomycin Trough Phenytoin Crossmatch 02/06/21 02/07/21 02/07/21 23:32 11:49 16:47 WBC RBC Hgb Hct MCV MCH MCHC RDW Plt Count Lymph % (Auto) [place] % (Auto) Lymph # (Auto) [place] # (Auto) Baso # (Auto) Seg Neutrophils % Seg Neuts % (Manual) Lymphocytes % (Manual) Monocytes % (Manual) Nucleated RBC % Seg Neutrophils # Seg Neutrophils # Man Lymphocytes # (Manual) Monocytes # (Manual) PT INR APTT Fibrinogen D-Dimer ABG pH POC ABG pCO2 POC ABG pO2 ABG pO2 ABG HCO3 ABG Base Excess ABG Hemoglobin ABG Oxyhemoglobin ABG Sodium ABG Potassium ABG Chloride ABG Glucose VBG pH Oxyhemoglobin Carboxyhemoglobin Sodium Potassium Chloride Carbon Dioxide BUN Creatinine Glucose POC Glucose 113 H 109 H 106 H Random Insulin C-Peptide Lactic Acid Calcium Ionized Calcium Phosphorus Magnesium AST ALT Alkaline Phosphatase Lactate Dehydrogenase NT-Pro-B Natriuret Pep Total Protein Albumin Arterial Blood Glucose Arterial Blood Ionized Calcium Urine pH Urine WBC (Auto) U Epithel Cells (Auto) Vancomycin Trough Phenytoin Crossmatch 02/07/21 02/08/21 02/08/21 22:59 06:17 06:38 WBC RBC Hgb Hct MCV MCH MCHC RDW Plt Count Lymph % (Auto) [place] % (Auto) Lymph # (Auto) [place] # (Auto) Baso # (Auto) Seg Neutrophils % Seg Neuts % (Manual) Lymphocytes % (Manual) Monocytes % (Manual) Nucleated RBC % Seg Neutrophils # Seg Neutrophils # Man Lymphocytes # (Manual) Monocytes # (Manual) PT INR APTT Fibrinogen D-Dimer ABG pH POC ABG pCO2 POC ABG pO2 ABG pO2 ABG HCO3 ABG Base Excess ABG Hemoglobin ABG Oxyhemoglobin ABG Sodium ABG Potassium ABG Chloride ABG Glucose VBG pH Oxyhemoglobin Carboxyhemoglobin Sodium 132 L Potassium Chloride 94.2 L Carbon Dioxide BUN Creatinine 0.5 L Glucose 101 H POC Glucose 106 H 110 H Random Insulin C-Peptide Lactic Acid Calcium Ionized Calcium Phosphorus Magnesium AST ALT Alkaline Phosphatase Lactate Dehydrogenase NT-Pro-B Natriuret Pep Total Protein Albumin Arterial Blood Glucose Arterial Blood Ionized Calcium Urine pH Urine WBC (Auto) U Epithel Cells (Auto) Vancomycin Trough Phenytoin Crossmatch 02/08/21 02/09/21 02/09/21 12:51 00:03 06:27 WBC RBC Hgb Hct MCV MCH MCHC RDW Plt Count Lymph % (Auto) [place] % (Auto) Lymph # (Auto) [place] # (Auto) Baso # (Auto) Seg Neutrophils % Seg Neuts % (Manual) Lymphocytes % (Manual) Monocytes % (Manual) Nucleated RBC % Seg Neutrophils # Seg Neutrophils # Man Lymphocytes # (Manual) Monocytes # (Manual) PT INR APTT Fibrinogen D-Dimer ABG pH POC ABG pCO2 POC ABG pO2 ABG pO2 ABG HCO3 ABG Base Excess ABG Hemoglobin ABG Oxyhemoglobin ABG Sodium ABG Potassium ABG Chloride ABG Glucose VBG pH Oxyhemoglobin Carboxyhemoglobin Sodium Potassium Chloride Carbon Dioxide BUN Creatinine Glucose POC Glucose 109 H 139 H 106 H Random Insulin C-Peptide Lactic Acid Calcium Ionized Calcium Phosphorus Magnesium AST ALT Alkaline Phosphatase Lactate Dehydrogenase NT-Pro-B Natriuret Pep Total Protein Albumin Arterial Blood Glucose Arterial Blood Ionized Calcium Urine pH Urine WBC (Auto) U Epithel Cells (Auto) Vancomycin Trough Phenytoin Crossmatch 02/09/21 02/09/2121 10:59 10:59 11:50 WBC RBC 5.37 H Hgb Hct MCV 73 L MCH 25 L MCHC RDW Plt Count Lymph % (Auto) [place] % (Auto) Lymph # (Auto) [place] # (Auto) Baso # (Auto) Seg Neutrophils % Seg Neuts % (Manual) Lymphocytes % (Manual) Monocytes % (Manual) 13.0 H Nucleated RBC % Seg Neutrophils # Seg Neutrophils # Man Lymphocytes # (Manual) Monocytes # (Manual) PT INR APTT Fibrinogen D-Dimer ABG pH POC ABG pCO2 POC ABG pO2 ABG pO2 ABG HCO3 ABG Base Excess ABG Hemoglobin ABG Oxyhemoglobin ABG Sodium ABG Potassium ABG Chloride ABG Glucose VBG pH Oxyhemoglobin Carboxyhemoglobin Sodium 133 L Potassium Chloride 96.9 L Carbon Dioxide 20 L BUN Creatinine 0.5 L Glucose 104 H POC Glucose 120 H Random Insulin C-Peptide Lactic Acid Calcium Ionized Calcium Phosphorus Magnesium AST ALT Alkaline Phosphatase Lactate Dehydrogenase NT-Pro-B Natriuret Pep Total Protein Albumin Arterial Blood Glucose Arterial Blood Ionized Calcium Urine pH Urine WBC (Auto) U Epithel Cells (Auto) Vancomycin Trough Phenytoin Crossmatch 02/09/21 02/09/21 02/11/21 17:35 23:25 06:26 WBC RBC Hgb Hct MCV MCH MCHC RDW Plt Count Lymph % (Auto) [place] % (Auto) Lymph # (Auto) [place] # (Auto) Baso # (Auto) Seg Neutrophils % Seg Neuts % (Manual) Lymphocytes % (Manual) Monocytes % (Manual) Nucleated RBC % Seg Neutrophils # Seg Neutrophils # Man Lymphocytes # (Manual) Monocytes # (Manual) PT INR APTT Fibrinogen D-Dimer ABG pH POC ABG pCO2 POC ABG pO2 ABG pO2 ABG HCO3 ABG Base Excess ABG Hemoglobin ABG Oxyhemoglobin ABG Sodium ABG Potassium ABG Chloride ABG Glucose VBG pH Oxyhemoglobin Carboxyhemoglobin Sodium Potassium Chloride Carbon Dioxide BUN Creatinine Glucose POC Glucose 115 H 145 H 113 H Random Insulin C-Peptide Lactic Acid Calcium Ionized Calcium Phosphorus Magnesium AST ALT Alkaline Phosphatase Lactate Dehydrogenase NT-Pro-B Natriuret Pep Total Protein Albumin Arterial Blood Glucose Arterial Blood Ionized Calcium Urine pH Urine WBC (Auto) U Epithel Cells (Auto) Vancomycin Trough Phenytoin Crossmatch 02/11/21 02/11/21 11:35 16:15 WBC RBC Hgb Hct MCV MCH MCHC RDW Plt Count Lymph % (Auto) [place] % (Auto) 13.2 H Lymph # (Auto) [place] # (Auto) 1.1 H Baso # (Auto) Seg Neutrophils % Seg Neuts % (Manual) Lymphocytes % (Manual) Monocytes % (Manual) Nucleated RBC % Seg Neutrophils # Seg Neutrophils # Man Lymphocytes # (Manual) Monocytes # (Manual) PT INR APTT Fibrinogen D-Dimer ABG pH POC ABG pCO2 POC ABG pO2 ABG pO2 ABG HCO3 ABG Base Excess ABG Hemoglobin ABG Oxyhemoglobin ABG Sodium ABG Potassium ABG Chloride ABG Glucose VBG pH Oxyhemoglobin Carboxyhemoglobin Sodium Potassium Chloride Carbon Dioxide BUN Creatinine Glucose POC Glucose 117 H Random Insulin C-Peptide Lactic Acid Calcium Ionized Calcium Phosphorus Magnesium AST ALT Alkaline Phosphatase Lactate Dehydrogenase NT-Pro-B Natriuret Pep Total Protein Albumin Arterial Blood Glucose Arterial Blood Ionized Calcium Urine pH Urine WBC (Auto) U Epithel Cells (Auto) Vancomycin Trough Phenytoin Crossmatch Chest x-ray: report reviewed, image reviewed (clear lungs)
[2021-02-11] MEDS: DEXTROSE 5% IN WATER 1,000 ML IV SCH (18:44)
[2021-02-12 05:30] LABS: Hemoglobin 11.7 gm/dl (10.1-14.3); Mean Corpuscular HGB Conc 32 % (30-34); Mean Corpuscular Volume 74 fl (79-97); Platelet Count 267 K/mm3 (140-440); Red Blood Count 5.03 M/mm3 (3.65-5.03); Red Cell Distribution Width 14.1 % (13.2-15.2)
[2021-02-12 05:52] LABS: Blood Urea Nitrogen 9 mg/dL (7-17); Calcium 9.2 mg/dL (8.4-10.2); Hemolysis Index 0
[2021-02-12 05:53] LABS: BUN/Creatinine Ratio 18
--- NOTE | 2021-02-12 07:53 | Physician Progress Note ---
DATE: 02/10/2021 EVENTS: No. HISTORY OF PRESENT ILLNESS: The patient was reported to note without trach in place. Respiratory therapist attempted to replace trach, smaller size trach without success. Previous tracheostomy site was covered. The patient was monitored on with pulse ox, O2 sat remained above 96% on room air. Presently, the patient is lying in bed and family at bedside. O2 sat was 97% on room air. PHYSICAL EXAMINATION: GENERAL: -[place] female, contracted. No oral lesions. No stridor. LUNGS: Distant. ABDOMEN: Positive bowel sounds, soft, nontender. EXTREMITIES: Contracted extremities, both upper and lower extremities noted. IMPRESSION: 1. The patient with chronic respiratory failure. 2. Anoxic encephalopathy. 3. Severe disability. We will continue to monitor the patient without trach. ABG had been attempted, unable to be obtained. We will continue to monitor closely. Continue pulmonary toilet. I spoke to family. TID: [id number] RECEIPT: [id number]/[email or web address]/[email or web address]
[2021-02-12] MEDS: FAMOTIDINE 20 MG TAB PO SCH ×2 (10:35→22:42)
[2021-02-12] MEDS: ENOXAPARIN 40 MG/0.4 ML INJ SUB-Q SCH (10:35)
[2021-02-12] MEDS: METOPROLOL TARTRATE 25 MG TAB PO SCH ×2 (10:35→22:42)
--- NOTE | 2021-02-12 10:59 | Progress Note ---
Assessment and Plan Assessment and plan: 30 year old -Hungarian female CHE 10/25/20 at 36w5d who presents with seizures in triage on 10/02/20. Pt was not able to provide history but per pt's , she presented to the hospital to return a 24 hour urine specimen for analysis. She then suddenly reported that she did not feel good. She was taken to labor and delivery and shortly after arrival, she began seizing. During this time, a code met was called because the patient became hypoxic. She was then noted to be without a pulse. Chest compressions were started immediately, and the patient was emergently taken to the operating room for delivery of the fetus. Off note, This patient has had care at [facility] with comanagement by [facility] since 11 wks complicated by ADHD, morbid obesity, generalized anxiety disorder, panic attacks, chronic narcotic use, fibromyalgia, GERD, Irritable Bowel Syndrome, Migraines, h/o endometrial ablation and ovarian vein embolization, genital herpes, insomnia, LGA fetus, nausea and vomiting, polyhydramnios, quad screen positive for Down's Syndrome, and previous x 3. She is GBS negative. Today patient resting comfortably no acute distress. Nonverbal 12/03/20 11:30: Pt brought to L&D triage for evaluation of possible labor. Pt accompanied by her spouse. Pt spouse poor historian; unable to obtain history- allergies at this time. Pt taken from registration to triage area via WC. Pt unresponsive, actively seizing with snorous respirations. extractor operator helper, Kassy, called and requesting assistance. 11:35: Multiple staff at bedside. Pt 02 sat 67% on nonrebreather, unable to read BP at this time. Yifan Theodore CRNA, at bedside for intubation and assistance with IV insertion. INT attempt by multiple RNs unsuccessful at this time. 11:42: Pt being bagged by KORIN, 02% 79%. No pulse palpated, compressions started at this time; bharati young called and Dr. Newberry preparing OR for emergent c/s. 11:44: Continued compressions on stretcher while transporting pt to OR 1. Pt being bagged with jaw thrust manuever in place by KORIN Stringer student. 11:45: Arrival to OR 1. Dr. Newberry and Dr. Portillo present for emergent c/s. Code team arrived for continued care. patient revived and c/s done Patient has been bleeding from C/s site followed by supracervical hysterectomy for severe bleeding Patient transfused multiple units of PRBC, Patient in DIC. Transferred to the ICU 10/03. Patient seen and examined at bedside this morning. Patient is nonresponsive and mechanically ventilated. On pressors. Labs reviewed-has leukocytosis, anemia, thrombocytopenia, ADOLPH and lactic acidosis. Started on IV antibiotics to cover possible sepsis secondary to DIC. Hematology oncology recommendations appreciated-needs additional cryoprecipitate and FFP. Monitor D-dimer, fibrinogen and frequent labs. Nephrology consulted for lactic acidosis and ADOLPH. 10/04. Remains mechanically ventilated. Kevin antibiotics. Labs shows improved acidosis - lactic acid 3.5. Hb drop noted. Getting transfused 2 units PRBCs. Platelet count is ~40k. Continue to monitor labs closely. Critical care team on board. 10/05; xray reviewed, concerning for multifocal infilrate, likely underlying P neumonia, will add ID consult to assist with management of this critically ill patient, start tube feed, closely monitor renal system 10/06: Resumed care, remains on mechanical ventilation. No active bleeding, H&H stable. Continue to monitor CBC and BMP. Continue IV antibiotic for underlying pneumonia. Follow critical care and ID recommendation. 10/07: Remains on mechanical ventilation. No active bleeding, H&H stable. Critical care following, wean off ventilation as tolerated. 10/08: Patient had another cardiac arrest last night. Remains on mechanical ventilation, update family. Continue supportive care -poor prognosis 10/09: Called patient mother and discussed about patient care and management. Answered all question to best of my knowledge and family satisfaction. Patient remains on mechanical ventilation, cardiac arrest x2 so far. Critically sick, poor prognosis 10/10: remains on mechanical ventilation. h/h stable, no active bleeding. monitor CBC/BMP 10/11: WBC trended up with diarrhea, started on vancomycin po. remains on MV, off pressor, tolerating TF 10/12: remains on MV, off pressor, tolerating TF. called family for update but unable to reach, could not leave message as it was full. cont supportive care, wean off vent as tolerated. 10/13/2020; patient is on mechanical ventilation, tolerating tube feeding. Patient has labored breathing. Neuro was consulted and recommend MRI. Patient is on Precedex. Rectal tube in place. 10/14/2020; patient is on mechanical ventilation, Precedex. Patient had fever and blood culture ordered. Patient is on IV vancomycin per ID recommendation. Neuro consulted and recommend MRI. Continue to monitor. Prognosis is guarded. 10/15/2020; patient is on mechanical ventilation, Precedex. Patient had fever and blood culture ordered. Patient is on IV vancomycin per ID recommendation. Neuro consulted and recommend MRI. Continue to monitor. Prognosis is guarded. 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 12/06/20; anoxic brain injury. Awaiting placement. 12/07/2020; anoxic brain injury, awaiting placement. 12/09/2020; anoxic brain injury, awaiting placement. 12/10/2020; patient had episodes of fever overnight. CBC, BMP, blood culture, UA and chest x-ray ordered, will follow and manage accordingly. Urinalysis is suggestive of UTI and I put the patient on ceftriaxone, order urine culture. Chest x-ray is normal. 12/11/2020; patient is on ceftriaxone day 2 for UTI. We will continue to follow urine culture. 12/12/2020. Day #3 of Rocephin for UTI. We will continue for 2 more days while she is here. Present UTI. 12/13/2020. Day #4 of Rocephin for UTI. Patient remains on 50% with tracheo stomy. Remains unresponsive with evidence of anoxic encephalopathy unable to make needs known. 12/14/2020. Day #5 of Rocephin for UTI completed today. Remains encephalopathic unable to make needs known. Remains on 50% unable to decrease oxygen via tracheostomy. Overall prognosis remains extremely poor. 32: Continue to monitor. Stop and monitor antibiotics at this time. Continue to wean oxygen as tolerated. Wean oxygen as tolerated. Case management working on placement. 12/16: Continue supportive care aspiration precautions. Awaiting placement discussion. Monitor fever curve. Prognosis remains poor no evidence of neurological recovery as of today 34: Continue supportive care, check labs and chest xray. Still monitor off antibiotics. Monitor Sodium level 12/18: Patient remains with intermittent low grade fever, reviewed EEG from September again, consistent for Ischemic Hypoxic Encephalopathy, patient with decorticating posturing type presentation. Will discuss with transport manager to o ptimize diet so we can discontinue D5. CXR with no abnormality. Discussed extensively with the nursing staff at bedside CXR IMPRESSION: 1. No acute findings. 12/19: No clinical change 12/20: No clinical change, now off abx, monitor, discussed her medications with our pharmacist I believe that her posture and rigidity is likely from underlying anoxic encephalopathy. Continue to monitor and await placement decision. Continue aggressive suctioning. Plan discussed in detail with the nursing staff 12/21: Continue supportive care. Will give 500 cc bolus of fluid today to replace insensible losses. Tachycardia appears to be improving. Blood pressure precludes adjusting cardiac meds. Still awaiting placement from case management. Plan discussed in detail with the nursing staff 12/22. Continue support supportive care. Tracheostomy and PEG in place. Remains nonresponsive. Awaiting placement. 12/23. Continue support supportive care. Tracheostomy and PEG in place. Remains nonresponsive. Awaiting placement. Remains tachycardic. Decrease dose of lasix. Will try low dose metoprolol. Monitor BP closely 12/24. Continue support supportive care. Tracheostomy and PEG in place. Remains nonresponsive. Awaiting placement. Heart rate slightly better. Continue to monitor BP closely 12/25. Continue support supportive care. Tracheostomy and PEG in place. Remains nonresponsive. Awaiting placement. 12/26. Continue support supportive care. Tracheostomy and PEG in place. Remains nonresponsive. Awaiting placement 12/27. Continue support supportive care. Tracheostomy and PEG in place. Remains nonresponsive. Awaiting placement 12/28. Had fever yesterday. Blood culture drawn. UA - UTI - started on antibiotics. Now tracheal aspirate is growing GN rods. 12/29: Continue IV antibiotics, continue supportive care. Since admission patient has shown minimal or no chance of neurological recovery. Need 24/7 assistance. Currently on trach and PEG, nonverbal. Waiting on SNF placement. Discussed with assistant case manager today. 12/30: Continue IV antibiotics for UTI, continue supportive care. Pending placement 12/31: continue supportive care. continue supportive care. Pending placement 01/01: continue supportive care. Pending placement. cont Iv abx for UTI till 01/04 01/02: Continue supportive care, pending placement. Sodium level slightly elevated, will start hypotonic fluid. Continue antibiotics till 01/04 01/03; cont hypotonic fluid, increase free water with TF for hypernatremia, follow BMP. cont supportive care. pending placement. cont cefepime. recx blood 01/04: resolved hyponatremia, cont supportive care, pending placement. Last day of supplement today. 01/05: Continue supportive care, pending placement. Monitor H&H and fever curve off antibiotic. 01/06; monitor off abx, suction as needed, Continue supportive care, pending placement. 01/07: Discharge pending on placement, vitals stable. Continue supportive care 01/08: Discharge pending on placement, vitals stable. Continue supportive care. stop lasix, increase metoprolol to 25mg BID for ST. 01/09 patient resting with eyes closed. Opens eyes to tactile stimulus, has a blink reflex, does not follow simple commands, has a T-collar / G-tube Lab results reviewed, low-grade fever, 01/10 Eyes open, does not follow simple commands, no acute events overnight 01/11 no acute events overnight, Waiting for placement 01/12 No acute events overnight. Patient awaiting for placement 01/13. No new issues. Awaiting placement 01/14. No new issues. Awaiting placement. 01/15. No new issues. Awaiting placement. 01/16. No new issues. Patient remain stable. Awaiting placement. Check maintenance labs. 01/17. Routine maintenance labs were ordered and are still pending. Await placement. 01/18. Patient with low-grade fever past 24-48 hrs. WBC within normal limits. Check chest x-ray, urinalysis and consider blood cultures. Continue tracheostomy care, secretion control and airway management. Patient currently with PEG and tube feedings at 60 cc an hour. Nutritional support and aspiration precautions. 01/19. Temperature 100.7 overnight. Continue to monitor closely. Continue tracheostomy care, secretion control and airway management. Patient currently with PEG and tube feedings at 60 cc an hour. Nutritional support and aspiration precautions. 01/20. Continue to monitor closely. Continue tracheostomy care, secretion control and airway management. Patient currently with PEG and tube feedings at 60 cc an hour. Nutritional support and aspiration precautions. 01/21. Afebrile overnight. Continue to monitor closely. Continue tracheostomy care, secretion control and airway management. Patient currently with PEG and tube feedings at 60 cc an hour. Nutritional support and aspiration precautions. 01/22. Continue to monitor closely. Continue tracheostomy care, secretion control and airway management. Patient currently with PEG and tube feedings at 60 cc an hour. Nutritional support and aspiration precautions. 01/23. Continue tracheostomy care, secretion control and airway management. Patient currently with PEG and tube feedings at 60 cc an hour. Nutritional support and aspiration precautions. Will get routine labs tomorrow. 01/24. Labs reviewed. No abnormalities. Continue tracheostomy care, secretion control and airway management. Patient currently with PEG and tube feedings at 60 cc an hour. Nutritional support and aspiration precautions. 01/25. Temp 100.6. More sleepy today. Will get chest xray, blood culture, urinalysis, sputum cultures. Will start on empirical abx. 01/26: Vitals noted, slightly tachycardic. Follow culture work-up, continue supportive care. 01/27: Spiking low-grade temp, negative UA, sputum culture and recent blood cultures also negative. Continue to monitor off antibiotics. Continue supportive care. Pending placement. 01/28: cont to spike low grade temp, negative UA, sputum culture and recent blood cultures also negative. Continue to monitor off antibiotics. will order fpr sinus xry. Continue supportive care. Pending placement. 01/29: Continue to follow clinically, intermittently spiking low-grade temp, all recent culture work is negative, negative UA, normal respiratory jaylan 1 tracheal aspirate. Vitals noted and currently stable. Pending placement 01/30: Clinically unchanged, continue to monitor vitals, continue supportive cares. Pending placement. Discussed plan of care with RN at the bedside. 01/31 - TODATE: cont supportive care, pending placement. monitor vitals carefully. Discussed with family at the bedside. 02/06. Patient afebrile today. Continue trach care. Secretions stable today. Culture data negative so far. Awaiting placement. 02/07. Awaiting placement awaiting family member to evaluate papers. Continue trach care secretions stable. Pending placement 02/09: Intermittent fever, ?drug related, will check cxr and also labs. No new complaints. 02/10: Patient's trach dislodged today. Nevertheless respiratory status is intact attempt to reinsert was unsuccessful will monitor discussed with nursing staff to pay close attention to the patient. Considering that this was not a planned decannulation I will start the patient on continuous pulse ox until full evaluation was done by pulmonary. 02/11: Continue supportive care, give a bolus of fluids. AND MONITOR PATIENT WITH HYPOTENSION 02/12: Continue supportive care, place Purewick to ensure skin integrity. Aspiration precautions. History Interval history: Patient seen and examined, no noted hypoxia,, clinically unchanged Hospitalist Physical - Physical exam Narrative exam: General appearance: Present: no acute distress, well-nourished, other (Chronically ill) dressing over stoma - Respiratory Respiratory: bilateral: CTA Extremities: abnormal Extremity abnormal: other (Contractures generalized weakness trace edema) CHEST: Rales posteriorly - Musculoskeletal Musculoskeletal: generalized weakness - Neurologic Neurologic: other - Psychiatric Psychiatric: other (Focal deficits) - Constitutional Vitals: Temp Pulse Resp BP Pulse Ox 98.8 F 103 H 20 107/67 97 02/12/21 04:19 02/12/21 04:19 02/12/21 04:19 02/12/21 04:19 02/12/21 08:17 General appearance: Present: no acute distress, well-nourished, other (Chronically ill) HEART Score - HEART Score Age: < 45 Risk factors: 1-2 risk factors - Critical Actions Critical Actions: >7 pts:50-65% risk of adverse cardiac event. Early invasive measures Results - Labs CBC & Chem 7: 02/12/21 04:09 02/12/21 04:09 Labs: Laboratory Last Values WBC 6.0 K/mm3 (4.5-11.0) 02/12/21 04:09 RBC 5.03 M/mm3 (3.65-5.03) 02/12/21 04:09 Hgb 11.7 gm/dl (10.1-14.3) 02/12/21 04:09 Hgb Comment See scanned result 10/04/20 Unknown Hct 37.0 % (30.3-42.9) 02/12/21 04:09 MCV 74 fl (79-97) L 02/12/21 04:09 MCH 23 pg (28-32) L 02/12/21 04:09 MCHC 32 % (30-34) 02/12/21 04:09 RDW 14.1 % (13.2-15.2) 02/12/21 04:09 Plt Count 267 K/mm3 (140-440) 02/12/21 04:09 Lymph % (Auto) 17.6 % (13.4-35.0) 02/11/21 16:15 [place] % (Auto) 13.2 % (0.0-7.3) H 02/11/21 16:15 Eos % (Auto) 0.7 % (0.0-4.3) 02/11/21 16:15 Baso % (Auto) 0.4 % (0.0-1.8) 02/11/21 16:15 Lymph # (Auto) 1.4 K/mm3 (1.2-5.4) 02/11/21 16:15 [place] # (Auto) 1.1 K/mm3 (0.0-0.8) H 02/11/21 16:15 Eos # (Auto) 0.1 K/mm3 (0.0-0.4) 02/11/21 16:15 Baso # (Auto) 0.0 K/mm3 (0.0-0.1) 02/11/21 16:15 Add Manual Diff Complete 02/09/21 10:59 Total Counted 100 02/09/21 10:59 Seg Neutrophils % 68.1 % (40.0-70.0) 02/11/21 16:15 Seg Neuts % (Manual) 58.0 % (40.0-70.0) 02/09/21 10:59 Band Neutrophils % 2.0 % 10/15/20 05:50 Lymphocytes % (Manual) 29.0 % (13.4-35.0) 02/09/21 10:59 Reactive Lymphs % (Man) 1.0 % 10/02/20 12:18 Monocytes % (Manual) 13.0 % (0.0-7.3) H 02/09/21 10:59 Eosinophils % (Manual) 1.0 % (0.0-4.3) 10/29/20 07:56 Myelocytes % 2.0 % 10/02/20 13:05 Metamyelocytes % 1.0 % 10/14/20 04:00 Nucleated RBC % Not Reportable 02/09/21 10:59 Seg Neutrophils # 5.6 K/mm3 (1.8-7.7) 02/11/21 16:15 Seg Neutrophils # Man 3.7 K/mm3 (1.8-7.7) 02/09/21 10:59 Band Neutrophils # 0.0 K/mm3 02/09/21 10:59 Lymphocytes # (Manual) 1.8 K/mm3 (1.2-5.4) 02/09/21 10:59 Abs React Lymphs (Man) 0.0 K/mm3 02/09/21 10:59 Monocytes # (Manual) 0.8 K/mm3 (0.0-0.8) 02/09/21 10:59 Eosinophils # (Manual) 0.0 K/mm3 (0.0-0.4) 02/09/21 10:59 Basophils # (Manual) 0.0 K/mm3 (0.0-0.1) 02/09/21 10:59 Metamyelocytes # 0.0 K/mm3 02/09/21 10:59 Myelocytes # 0.0 K/mm3 02/09/21 10:59 Promyelocytes # 0.0 K/mm3 02/09/21 10:59 Blast Cells # 0.0 K/mm3 02/09/21 10:59 WBC Morphology Not Reportable 02/09/21 10:59 Hypersegmented Neuts Not Reportable 02/09/21 10:59 Hyposegmented Neuts Not Reportable 02/09/21 10:59 Hypogranular Neuts Not Reportable 02/09/21 10:59 Smudge Cells Not Reportable 02/09/21 10:59 Toxic Granulation Not Reportable 02/09/21 10:59 Toxic Vacuolation Not Reportable 02/09/21 10:59 Dohle Bodies Not Reportable 02/09/21 10:59 Pelger-Huet Anomaly Not Reportable 02/09/21 10:59 Ester Rods Not Reportable 02/09/21 10:59 Platelet Estimate Consistent w auto 02/09/21 10:59 Clumped Platelets Not Reportable 02/09/21 10:59 Plt Clumps, EDTA Not Reportable 02/09/21 10:59 Large Platelets Few 02/09/21 10:59 Giant Platelets Not Reportable 02/09/21 10:59 Platelet Satelliting Not Reportable 02/09/21 10:59 Plt Morphology Comment Not Reportable 02/09/21 10:59 RBC Morphology Not Reportable 02/09/21 10:59 Dimorphic RBCs Not Reportable 02/09/21 10:59 Polychromasia Not Reportable 02/09/21 10:59 Hypochromasia 1+ 02/09/21 10:59 Poikilocytosis Not Reportable 02/09/21 10:59 Anisocytosis Not Reportable 02/09/21 10:59 Microcytosis Not Reportable 02/09/21 10:59 Macrocytosis Not Reportable 02/09/21 10:59 Spherocytes Not Reportable 02/09/21 10:59 Pappenheimer Bodies Not Reportable 02/09/21 10:59 Sickle Cells Not Reportable 02/09/21 10:59 Target Cells Not Reportable 02/09/21 10:59 Tear Drop Cells Not Reportable 02/09/21 10:59 Ovalocytes Not Reportable 02/09/21 10:59 Stomatocytes Few 10/14/20 04:00 Helmet Cells Not Reportable 02/09/21 10:59 Burk-[place] Bodies Not Reportable 02/09/21 10:59 [place] Rings Not Reportable 02/09/21 10:59 Antoine Cells Not Reportable 02/09/21 10:59 Bite Cells Not Reportable 02/09/21 10:59 Crenated Cell Not Reportable 02/09/21 10:59 Elliptocytes Not Reportable 02/09/21 10:59 Acanthocytes (Spur) Not Reportable 02/09/21 10:59 Rouleaux Not Reportable 02/09/21 10:59 Hemoglobin C Crystals Not Reportable 02/09/21 10:59 Schistocytes Not Reportable 02/09/21 10:59 Malaria parasites Not Reportable 02/09/21 10:59 Sickle Cell Solubility See scanned result 10/04/20 Unknown Hemoglobin A See scanned result 10/04/20 Unknown Hemoglobin A2 See scanned result 10/04/20 Unknown Hemoglobin A2 Prime See scanned result 10/04/20 Unknown Hemoglobin C See scanned result 10/04/20 Unknown Hemoglobin D See scanned result 10/04/20 Unknown Hemoglobin E See scanned result 10/04/20 Unknown Hgb F Diffential Stain See scanned result 10/04/20 Unknown Hemoglobin F Quant See scanned result 10/04/20 Unknown Hemoglobin G See scanned result 10/04/20 Unknown Hemoglobin S See scanned result 10/04/20 Unknown Hemoglobin O-[place] See scanned result 10/04/20 Unknown Hemoglobin [place] See scanned result 10/04/20 Unknown Hemoglobin Analilia See scanned result 10/04/20 Unknown Variant Hemoglobin See scanned result 10/04/20 Unknown Abnorm Hgb IEF Confirm See scanned result 10/04/20 Unknown Hemoglobin Interpret See scanned result 10/04/20 Unknown Hemoglobinopathy Note See scanned result 10/04/20 Unknown Sharad Bodies Not Reportable 02/09/21 10:59 Hem Pathologist Commnt No 02/09/21 10:59 PT 13.6 Sec. (12.2-14.9) 10/21/20 13:54 INR 1.06 (0.87-1.13) 10/21/20 13:54 APTT 31.6 Sec. (24.2-36.6) 10/03/20 00:40 Fibrinogen 336 mg/dl (211-480) 10/04/20 10:00 D-Dimer 1974.47 ng/mlDDU (0-234) H 11/11/20 13:50 ABG pH 7.459 pH Units (7.350-7.450) H 10/26/20 10:30 POC ABG pCO2 20.7 mmHg (32.0-48.0) L 10/13/20 07:18 ABG pCO2 32.4 mm Hg 10/26/20 10:30 POC ABG pO2 137.9 mmHg (83-108) H 10/13/20 07:18 ABG pO2 112.2 mm Hg (80.0-90.0) H 10/26/20 10:30 POC ABG HCO3 14.8 10/13/20 07:18 ABG HCO3 22.5 mmol/L (20.0-26.0) 10/26/20 10:30 ABG O2 Saturation 98.2 % (95.0-99.0) 10/26/20 10:30 ABG O2 Content 18.5 (0.0-44) 10/26/20 10:30 POC ABG Base Excess -6.9 10/13/20 07:18 ABG Base Excess -0.6 mmol/L (-2.0-3.0) 10/26/20 10:30 ABG Hemoglobin 13.5 gm/dl (12.0-16.0) 10/26/20 10:30 ABG Oxyhemoglobin 98.3 (94-98) H 10/13/20 07:18 ABG Carboxyhemoglobin 1.3 % (0.0-5.0) 10/26/20 10:30 ABG Methemoglobin 0.5 % (0.0-1.5) 10/26/20 10:30 ABG Sodium 135.9 mmol/L (136.0-145.0) L 10/13/20 07:18 ABG Potassium 3.7 mmol/L (3.40-4.50) 10/13/20 07:18 ABG Chloride 111.0 mmol/L (98-107) H 10/13/20 07:18 ABG Glucose 109 mg/dL (65-95) H 10/13/20 07:18 VBG pH 6.949 (7.320-7.420) L* 10/02/20 Unknown Oxyhemoglobin 96.5 % (95.0-99.0) 10/26/20 10:30 Carboxyhemoglobin 0.3 (0.5-1.5) L 10/13/20 07:18 FiO2 25 % 10/26/20 10:30 Sodium 137 mmol/L (137-145) 02/12/21 04:09 Potassium 4.4 mmol/L (3.6-5.0) 02/12/21 04:09 Chloride 100.6 mmol/L (98-107) 02/12/21 04:09 Carbon Dioxide 27 mmol/L (22-30) D 02/12/21 04:09 Anion Gap 14 mmol/L 02/12/21 04:09 BUN 9 mg/dL (7-17) 02/12/21 04:09 Creatinine 0.5 mg/dL (0.6-1.2) L 02/12/21 04:09 Estimated GFR > 60 ml/min 02/12/21 04:09 BUN/Creatinine Ratio 18 % 02/12/21 04:09 Glucose 107 mg/dL (65-100) H 02/12/21 04:09 POC Glucose 132 mg/dL (70-105) H 02/11/21 22:10 Random Insulin 43.2 uIU/mL (<=19.6) H 11/02/20 19:19 Proinsulin See scanned result 11/02/20 19:19 C-Peptide 6.23 ng/mL (0.80-3.85) H 11/02/20 19:19 Lactic Acid 1.90 mmol/L (0.7-2.0) 10/04/20 22:00 Uric Acid 7.5 mg/dL (3.5-7.6) 10/02/20 13:05 Calcium 9.2 mg/dL (8.4-10.2) 02/12/21 04:09 Ionized Calcium 4.4 mg/dL (4.8-5.6) L 10/07/20 21:00 Phosphorus 4.60 mg/dL (2.5-4.5) H 11/13/20 10:05 Magnesium 2.10 mg/dL (1.7-2.3) 11/13/20 10:05 Total Bilirubin 0.30 mg/dL (0.1-1.2) 01/24/21 04:18 AST 31 units/L (5-40) 01/24/21 04:18 ALT 21 units/L (7-56) 01/24/21 04:18 Alkaline Phosphatase 92 units/L (35-129) 01/24/21 04:18 Lactate Dehydrogenase 769 units/L (91-180) H 10/02/20 13:05 C-Reactive Protein 0.70 mg/dL (0.00-1.30) 11/11/20 13:50 NT-Pro-B Natriuret Pep 2788 pg/mL (0-450) H 10/04/20 10:00 Total Protein 7.7 g/dL (6.3-8.2) 01/24/21 04:18 Albumin 3.7 g/dL (3.9-5) L 01/24/21 04:18 Albumin/Globulin Ratio 0.9 % 01/24/21 04:18 Procalcitonin < 0.05 ng/mL (<0.15) 12/27/20 20:16 Arterial Blood Glucose 109 mg/dL (65-95) H 10/13/20 07:18 Arterial Blood Ionized Calcium 4.6 mg/dL (4.6-5.3) 10/13/20 07:18 Urine Color Yellow (Yellow) 01/25/21 09:51 Urine Turbidity Cloudy (Clear) 01/25/21 09:51 Urine pH 7.0 (5.0-7.0) 01/25/21 09:51 Ur Specific [place] 1.011 (1.003-1.030) 01/25/21 09:51 Urine Protein <15 mg/dl mg/dL (Negative) 01/25/21 09:51 Urine Glucose (UA) Neg mg/dL (Negative) 01/25/21 09:51 Urine Ketones Neg mg/dL (Negative) 01/25/21 09:51 Urine Blood Neg (Negative) 01/25/21 09:51 Urine Nitrite Neg (Negative) 01/25/21 09:51 Urine Bilirubin Neg (Negative) 01/25/21 09:51 Urine Urobilinogen < 2.0 mg/dL (<2.0) 01/25/21 09:51 Ur Leukocyte Esterase Neg (Negative) 01/25/21 09:51 Urine WBC (Auto) 6.0 /HPF (0.0-6.0) 01/25/21 09:51 Urine RBC (Auto) 3.0 /HPF (0.0-6.0) 01/25/21 09:51 U Epithel Cells (Auto) < 1.0 /HPF (0-13.0) 01/25/21 09:51 Urine Bacteria (Auto) 1+ /HPF (Negative) 01/18/21 08:47 Urine WBC Clumps 3+ /HPF 11/11/20 13:50 Calcium Oxalate Crystal Few 11/11/20 13:50 Urine Mucus Few /HPF 01/25/21 09:51 Urine Yeast (Budding) 2+ /HPF 01/25/21 09:51 Vancomycin Trough 12.6 ug/mL (5.0-20.0) 10/21/20 13:54 Random Vancomycin 10.7 ug/mL (0-40.0) 10/16/20 13:09 Phenytoin 5.7 ug/mL (10.0-20.0) L 10/13/20 07:00 C. difficile Tox (PCR) Positive (Negative) 10/16/20 10:22 Coronavirus (PCR) Negative (Negative) 10/08/20 14:15 Blood Type O POSITIVE 10/02/20 12:50 Antibody Screen Negative 10/02/20 12:50 Crossmatch See Detail 10/02/20 12:50 - Diagnostic Impressions Diagnostic Impressions: Echocardiogram 10/03/20 13:42 Transthoracic Echocardiogram Indication: S/P Cardiac Arrest R/O Cardiomyopathy BP: 133/71 Conclusions *Global left ventricular systolic function is normal. *The estimated ejection fraction is 60-65%. *There is trace of mitral regurgitation. *The right 0heart chambers are both slightly dilated. *There is mild tricuspid regurgitation. *There is mild-moderate pulmonary hypertension. *The right ventricular systolic pressure is calculated at 44 mmHg. *The study quality is technically difficult. Findings Procedure Info: The study quality is technically difficult. The study is technically limited due to patient body habitus. The study was technically limited due to the patient's inability to lay in the left lateral decubitus position. Left Ventricle: The left ventricular chamber size is normal. There is no left ventricular hypertrophy. Global left ventricular systolic function is normal. The estimated ejection fraction is 60-65%. Left Atrium: The left atrial chamber size is normal. Right Ventricle: The right ventricle is slightly dilated. Right Atrium: The right atrium is mildly dilated. Aortic Valve: The aortic valve leaflets are mildly thickened. There is no evidence of aortic regurgitation. There is no evidence of aortic stenosis. Mitral Valve: The mitral valve leaflets are mildly thickened. There is trace of mitral regurgitation. There is no evidence of mitral stenosis. Tricuspid Valve: There is mild tricuspid regurgitation. The right ventricular systolic pressure is calculated at 44 mmHg. There is evidence of mild pulmonary hypertension. Pulmonic Valve: There is trace pulmonic regurgitation. Pericardium: There is no pericardial effusion. Aorta: There is no dilatation of the ascending aorta. There is no dilatation of the aortic root. Venous: The inferior vena cava is dilated. Measurements Chambers 2D Name Value Normal Range IVSd (2D) 1 cm (0.6 - 1.1) LVPWd (2D) 1.01 cm (0.6 - 1.1) LVIDd (2D) 4.58 cm (3.7 - 5.6) LVIDs (2D) 3.17 cm (2 - 3.8) LV FS (2D) 30.93 % - EF Teichholz (2D) 58.66 % - Ao root diameter (2D) 2.94 cm (2 - 3.7) Volumes/Mass Name Value Normal Range LA ESV SP 4CH (A/L) 72.82 ml - LA ESV SP 2CH (A/L) 66.86 ml - LA ESV BP (A/L) 74.49 ml - LA ESV SP 4CH (MOD) 71.03 ml - LA ESV SP 2CH (MOD) 64.3 ml - LV EDV SP 4CH (MOD) 98.82 ml - LV ESV SP 4CH (MOD) 24.8 ml - EF SP 4CH (MOD) 74.9 % - LV EDV SP 2CH (MOD) 86.1 ml - LV ESV SP 2CH (MOD) 36.93 ml - EF SP 2CH (MOD) 57.11 % - LV EDV BP 94.4 ml - LV ESV BP 32.66 ml - BP EF (MOD) 65.4 % - Diastolic/Systolic Function Name Value Normal Range MV E-wave Vmax 1.04 m/sec - MV deceleration time 160.46 msec - MV A-wave Vmax 0.92 m/sec - MV E:A ratio 1.14 ratio - Aortic Valve Name Value Normal Range AV Vmax 2.12 m/sec - AV VTI 22.37 cm - AV peak gradient 17.95 mmHg - AV mean gradient 7.29 mmHg - LVOT diameter 2.01 cm - LVOT Vmax 1.8 m/sec - LVOT VTI 27.17 cm - LVOT peak gradient 12.91 mmHg - LVOT mean gradient 6.83 mmHg - SV LVOT 86.42 ml - ANITA (continuity Vmax) 2.7 cm2 - ANITA (continuity VTI) 3.86 cm2 - Ascending Ao 3.18 cm - Tricuspid Valve Name Value Normal Range TV E-wave Vmax 0.88 m/sec - TR Vmax 3.01 m/sec - TR peak gradient 36.27 mmHg - RAP 8 mmHg - RVSP 44 mmHg - IVC diameter 2.65 cm (1.2 - 2.3) Pulmonic Valve/Qp:Qs Name Value Normal Range PV Vmax 1.22 m/sec - PV peak gradient 5.91 mmHg - RVOT Vmax 0.87 m/sec - RVOT VTI 13.32 cm - RVOT peak gradient 3 mmHg - PV acceleration time 110.37 msec - [place]/IV: Voiding Method Incontinent IV Catheter Type [Right Foot] INT / Saline Lock IV Catheter Type [Left Forearm Peripheral IV ] IV Catheter Type [Left Wrist] INT / Saline Lock IV Catheter Type [Right Hand] INT / Saline Lock IV Catheter Type [Right INT / Saline Lock Antecubital] IV Catheter Type [Right Upper Mid-line arm] IV Catheter Type [Left Triple Lumen Cath Internal Jugular] IV Catheter Type [Left Hand] Peripheral IV IV Catheter Type [Left Peripheral IV Antecubital] Active Medications - Current Medications Current Medications: Generic Name Dose Route Start Last Admin Trade Name Freq PRN Reason Stop Dose Admin Acetaminophen 650 mg 10/05/20 16:34 02/11/21 22:38 Acetaminophen 325 Mg/10.15 Ml Oral Liqd Unit Dose FEEDTUBE 650 mg Q6H PRN Administration Non Cardiac Pain or Temp>100.5 Albuterol 2.5 mg 11/05/20 13:03 11/06/20 13:04 Albuterol 2.5 Mg/3 Ml Nebu IH 2.5 mg Q4HRT PRN Administration Shortness Of Breath Alprazolam 0.25 mg 01/20/21 13:33 02/02/21 18:06 Alprazolam 0.25 Mg Tab PO 0.25 mg Q8H PRN Administration Anxiety Lipase/Protease/Amylase 1 each 10/05/20 11:09 Lipase 10,500/Protease 25,000/Amylase 43,750 (Units) Dr Barakat FEEDTUBE PRN PRN For Clogged Feeding Tube Enoxaparin Sodium 40 mg 10/22/20 10:00 02/11/21 09:01 Enoxaparin 40 Mg/0.4 Ml Inj SUB-Q 40 mg DAILY ERINN Administration Protocol Famotidine 20 mg 10/07/20 10:00 02/11/21 22:31 Famotidine 20 Mg Tab PO 20 mg BID ERINN Administration Hydralazine HCl 20 mg 10/07/20 11:49 10/17/20 07:20 Hydralazine 20 Mg/1 Ml Inj IV 20 mg Q6H PRN Administration SBP >170 Hydrophilic Ointment 1 applic 01/03/21 13:00 Lip Therapy Vaseline TP DIRECT PRN Dry Lips Dextrose 1,000 mls @ 30 mls/hr 01/03/21 12:00 02/11/21 18:44 D5w IV 30 mls/hr DIRECT ERINN Administration Levofloxacin/Dextrose 500 mg in 100 mls @ 100 mls/hr 02/08/21 14:00 02/11/21 14:03 Levaquin 500mg/100ml IV 100 mls/hr Q24H ERINN Administration Protocol Metoprolol Tartrate 50 mg 02/02/21 16:01 02/11/21 22:31 Metoprolol Tartrate 25 Mg Tab PO 50 mg BID ERINN Administration Morphine Sulfate 2 mg 01/20/21 13:33 Morphine 2 Mg/1 Ml Inj IV Q4H PRN Pain, Moderate (4-6) Ondansetron HCl 4 mg 02/10/21 11:38 02/10/21 13:18 Ondansetron 4 Mg/2 Ml Inj IV 4 mg Q4H PRN Administration Nausea And Vomiting Simple Syrup 15 ml 10/05/20 11:09 Simple Syrup 15 Ml FEEDTUBE PRN PRN Hypoglycemia Simple Syrup 30 ml 10/05/20 11:09 Simple Syrup 15 Ml FEEDTUBE PRN PRN Hypoglycemia Sodium Bicarbonate 325 mg 10/05/20 11:09 12/16/20 08:19 Sodium Bicarbonate 325 Mg Tab FEEDTUBE 325 mg PRN PRN Administration For Clogged Feeding Tube Nutrition/Malnutrition Assess - Dietary Evaluation Nutrition/Malnutrition Findings: Nutrition Notes Start: 10/04/20 11:13 Freq: Status: Active Protocol: Document 02/10/21 10:11 (Rec: 02/10/21 10:15 [id number]) Nutrition Notes Initial or Follow up Reassessment Current Diagnosis Respiratory Failure Other Pertinent Diagnosis s/p cardiac arrest x 2, anoxic brain injury Current Diet Promote at 65ml/hr Labs/Tests 02/09: Na 133 Pertinent Medications Reviewed Height 5 ft 8 in Weight 97 kg [place] Body Weight (kg) 63.63 BMI 32.5 Weight Status Obese Subjective/Other Information FU for stable TF. Pt tolerating at goal rate. Percent of energy/protein needs met: 100%/98% Burn Absent Trauma Absent GI Symptoms None Difficulty In Swallowing,Chewing Food Allergy Yes Current % PO Negligible Minimum of two criteria Yes Interpretation of Weight Loss (severe) >2% in 1 week Fluid Accumulation Mild (non-severe) #2 Nutrition Diagnosis Malnutrition Diagnosis Progress(for reassessment Continues documentation) #1 Nutrition Diagnosis Inadequate oral intake Diagnosis Progress(for reassessment Continues documentation) Is patient on ventilator? No Is Patient Ambulatory and/or Out of Bed No REE-([facility]-confined to bed) 6.108 Kcal/Kg value to use for calculation 16 Approximate Energy Requirements Using 1552 kcal/Kg Calculation Used for Recommendations [facility] Additional Notes Pro needs 1.25-1.5 g/kg adjBW: 100-120g/day Fluid needs 1ml/kcal Nutrition Intervention Change Diet Order: Continue Nutrition Support: Promote at 65 ml/hr Flush 50 ml q4h Kcal 1,560 Protein (gm) 98 Fluid (mL) 1,309 Goal #1 TF tolerance Goal #2 TF to meet at least 75% energy and pro needs Anticipated Discharge Needs: Promote at 65 ml/hr Flush 50 ml q4h Follow-Up By: 02/17/21 Additional Comments FU for stable TF
[2021-02-13] MEDS: ALPRAZolam 0.25 MG TAB PO PRN (02:04)
[2021-02-13] MEDS: FAMOTIDINE 20 MG TAB PO SCH ×2 (10:26→22:10)
[2021-02-13] MEDS: ENOXAPARIN 40 MG/0.4 ML INJ SUB-Q SCH (10:26)
[2021-02-13] MEDS: METOPROLOL TARTRATE 25 MG TAB PO SCH ×2 (10:27→22:10)
[2021-02-14] MEDS: FAMOTIDINE 20 MG TAB PO SCH ×2 (10:45→22:55)
[2021-02-14] MEDS: METOPROLOL TARTRATE 25 MG TAB PO SCH ×2 (10:45→22:55)
[2021-02-14] MEDS: ENOXAPARIN 40 MG/0.4 ML INJ SUB-Q SCH (10:45)
--- NOTE | 2021-02-14 15:14 | Progress Note ---
Assessment and Plan Critical care statement The high probability of a clinically significant, sudden or life threatening deterioration of the [MULTIPLE ORGAN] system(s) required my full and direct attention, intervention and personal management. The aggregate critical care time was [33] minutes. This time is in addition to time spent performing reported procedures but includes the following: [X] Data Review and interpretation [X] Patient assessment and monitoring of vital signs [X] Documentation [X] Medication orders and management Assessment and Plan 30 y/o female patient with Eclampsia/help syndrome, s/p emergent section with DIC, hemorrhage, supracervical abdominal hysterectomy, acute respiratory failure , tracheostomy on T-piece with morbid obesity, s/p cardiac arrest 12/08/2019 status post CPR per ACLS, acute hypoxic brain injury Acute kidney injury improved, severe shock requiring pressors, DIC septic shock improved, history of C. difficile colitis completed treatment with vancomycin. Tracheostomy on T-piece, continues to require 5 L of oxygen. Herpetic flareup, ID started treatment with antibiotics, patient is waiting for SNF placement DC planning per case management Assessment and plan: --Persistent hypoglycemia; patient is requiring continuous D10 W infusion CT abdomen done to rule out insulinoma, CT abdomen report negative for pancreatic tumor We will closely monitor --Cardiac arrest; 10/07/2020 ,status post CPR --Acute hypoxic brain injury; Supportive care, closely monitor --Acute hypoxic respiratory failure: Tracheostomy on T-piece , today on 4.5 L oxygen, saturating 100% Supportive care, Pulmonary critical following COVID-19 negative C. difficile positive; Patient on contact isolation Completed treatment --Afebrile: Blood, urine, tracheal aspirate cultures New cultures negative to date Monitor off antibiotics Closely monitor --Sepsis; received antibiotics Continue to monitor off antibiotics ID following --COVID-19 test negative; 10/08/2020 --C. difficile colitis test; positive; 10/16/2020 --Acute metabolic encephalopathy --Acute kidney injury; vasomotor nephropathy Resolved, renal function within normal limits, closely monitor --Shock; monitor of pressors Blood pressures reasonable level --DIC; sepsis, septic shock, resolved --History of preeclampsia; / hemorrhage Status post hysterectomy --History of C. difficile colitis; completed oral vancomycin --DVT/SVT and right upper extremity Very poor prognosis, Consults recommendations noted and appreciated We will closely monitor the patient and adjust management as needed Plan of care reviewed with the patient's nurse. Waiting for long-term facility placement Subjective Date of service: 02/14/21 Principal diagnosis: Eclampsia/HELLP Syndrome, ADOLPH, DIC; s/p , s/p supracervical hyst Interval history: 30 y/o female patient with Eclampsia/help syndrome, s/p emergent section with DIC, hemorrhage, supracervical abdominal hysterectomy, acute respiratory failure , tracheostomy on T-piece with morbid obesity, s/p cardiac arrest 12/08/2019 status post CPR per ACLS, acute hypoxic brain injury Acute kidney injury improved, severe shock requiring pressors, DIC septic shock improved, history of C. difficile colitis on vancomycin. Tracheostomy on T-piece, continues to require 5 L of oxygen. Brief history; 30 year old -Russian female CHE 10/25/20 at 36w5d who presents with seizures in triage on 10/02/20. Pt was not able to provide history but per pt's , she presented to the hospital to return a 24 hour urine specimen for analysis. She then suddenly reported that she did not feel good. She was taken to labor and delivery and shortly after arrival, she began seizing. During this time, a code met was called because the patient became hypoxic. She was then noted to be without a pulse. Chest compressions were started immediately, and the patient was emergently taken to the operating room for delivery of the fetus. Off note, This patient has had care at [facility] with comanagement by [facility] since 11 wks complicated by ADHD, morbid obesity, gener alized anxiety disorder, panic attacks, chronic narcotic use, fibromyalgia, GERD, Irritable Bowel Syndrome, Migraines, h/o endometrial ablation and ovarian vein embolization, genital herpes, insomnia, LGA fetus, nausea and vomiting, polyhydramnios, quad screen positive for Down's Syndrome, and previous x 3. She is GBS negative. , Patient tracheostomy on ventilatory support, unable to wean, continue supportive care poor prognosis 11:30: Pt brought to L&D triage for evaluation of possible labor. Pt accompanied by her spouse. Pt spouse poor historian; unable to obtain history- allergies at this time. Pt taken from registration to triage area via WC. Pt unresponsive, actively seizing with snorous respirations. mixologist, Kassy, called and requesting assistance. 11:35: Multiple staff at bedside. Pt 02 sat 67% on nonrebreather, unable to read BP . Yifan Theodore CRNA, at bedside for intubation and assistance with IV insertion. INT attempt by multiple RNs unsuccessful at this time. 11:42: Pt being bagged by KORIN, 02% 79%. No pulse palpated, compressions on at this time; bharati young called and Dr. Newberry preparing OR for emergent c/s. 11:44: Continued compressions on stretcher while transporting pt to OR 1. Pt being bagged with jaw thrust manuever in place by KORIN Stringer student. 11:45: Arrival to OR 1. Dr. Newberry and Dr. Portillo present for emergent c/s. Bharati team arrived for continued care. patient revived and c/s done Patient has been bleeding from C/s site followed by supracervical hysterectomy for severe bleeding, Patient transfused multiple units of PRBC, Patient in DIC. Patient transferred to the ICU Hospital course; 10/03. Patient seen and examined at bedside this morning. Patient is nonresponsive and mechanically ventilated. On pressors. Labs reviewed-has leukocytosis, anemia, thrombocytopenia, ADOLPH and lactic acidosis. Started on IV antibiotics to cover possible sepsis secondary to DIC. Hematology oncology recommendations appreciated-needs additional cryoprecipitate and FFP. Monitor D-dimer, fibrinogen and frequent labs. Nephrology consulted for lactic acidosis and ADOLPH. 10/04. Remains mechanically ventilated. Kevin antibiotics. Labs shows improved acidosis - lactic acid 3.5. Hb drop noted. Getting transfused 2 units PRBCs. Platelet count is ~40k. Continue to monitor labs closely. Critical care team on board. 10/05; xray reviewed, concerning for multifocal infilrate, likely underlying Pneumonia, will add ID consult to assist with management of this critically ill patient, start tube feed, closely monitor renal system 10/06: Resumed care, remains on mechanical ventilation. No active bleeding, H&H stable. Continue to monitor CBC and BMP. Continue IV antibiotic for underlying pneumonia. Follow critical care and ID recommendation. 10/07: Remains on mechanical ventilation. No active bleeding, H&H stable. Critical care following, wean off ventilation as tolerated. 10/08: Patient had another cardiac arrest last night. Remains on mechanical ventilation, update family. Continue supportive care -poor prognosis 10/09: Called patient mother and discussed about patient care and management. Answered all question to best of my knowledge and family satisfaction. Patient remains on mechanical ventilation, cardiac arrest x2 so far. Critically sick, poor prognosis 10/10: remains on mechanical ventilation. h/h stable, no active bleeding. monitor CBC/BMP 10/11: WBC trended up with diarrhea, started on vancomycin po. remains on MV, off pressor, tolerating TF 10/12: remains on MV, off pressor, tolerating TF. called family for update but unable to reach, could not leave message as it was full. cont supportive care, wean off vent as tolerated. 10/13/2020; patient is on mechanical ventilation, tolerating tube feeding. Patient has labored breathing. Neuro was consulted and recommend MRI. Patient is on Precedex. Rectal tube in place. 10/14/2020; patient is on mechanical ventilation, Precedex. Patient had fever and blood culture ordered. Patient is on IV vancomycin per ID recommendation. Neuro consulted and recommend MRI. Continue to monitor. Prognosis is guarded. 10/15/2020; patient is on mechanical ventilation, Precedex. Patient had fever and blood culture ordered. Patient is on IV vancomycin per ID recommendation. Neuro consulted and recommend MRI. Continue to monitor. Prognosis is guarded. 12: Remains with C.DIFF and Bactermia, Poor prognosis. No purposeful movement. MRI and EEG discussed with Intensvisit, Continue aggressive BP control. 3: Blood pressure better controlled MRI done 10/15 shows mild improvement in edema. We will continue to monitor mother was at bedside yesterday. Nursing documentation trach and PEG discussed with the mother including goals of care. She is still in denial about the gravity of her daughters her condition which is understandable considering her age. Continue aggressive management at this time. Await for bacteremia to clear by ID before placing PICC line. 10/19: Patient for possible PEG and Trach, ID following, repeat cultures remain negative. Poor prognosis 10/20: Pt noted to DVT and SVT in the RUE, Vascular consult and will also obtain Hematology for possible considering changing in Anticoagulation. CONTINUE TO MONITOR H/H and PLT. Family updated by Intensivit. Heparin gtt started. Will check CBC and BMP 10/21: Continue supporive care, Diarrhea now resolving, But still with persistent Fever, May need repeat CT/AP per ID, still with profused Encephalopathy 10/22: Continue supportive care, weaning, awaiting repeat Imaging. FOLLOW Fever curve. Enoxparin restarted 10/23: Continue supportive care, wean as tolerated. 10/24; Started on CPAP trial, discussed with pulmonary, still with diarrhea. 10/25: Patients seen and examined, no clinical changes, still with diarrhea. ?meaningful recovery. 10/26: Clinically unchanged, continue CPAP trial, Will discuss with Neurology about re-evaluation, ?Need for repeat CT head. ?PRESS considering initial elevated BP, now stable. 10/27; tracheostomy on vent, weaning trials, vital signs noted, poor prognosis 10/28; unable to wean, tracheostomy on vent. Sepsis. Continue current management. Consults and recommendations noted and appreciated 10/30/2020;Patient on T-piece 5 L of oxygen not in acute distress, noncommunicative 11/02/2020; patient on T-piece 5 L of oxygen 11/03/2020; patient's fever slightly improved low-grade, continue current management, remains on T-piece with 5 L of oxygen 11/04/2020; T-max last 24 hours 100.3 F, new cultures negative to date, monitor off antibiotics Patient is off Levophed, blood pressures reasonable level, tracheostomy on T- piece 3 to 5 L nasal cannula oxygen 11/05/2020; tracheostomy on T-piece patient remains on 5 L of nasal cannula oxygen, unresponsive severe hypoxic brain injury I called patient's mother Ms. Pamela Bassett as well as patient's spouse Mr. Danilo Dimas at [phone] unable to reach them Left voicemail on Ms. Pamela Bassettz phone and encouraged him to call back 11/06/2020; I tried to call again today Ms. Pamela Bassett to discuss patient's condition and treatment plan and update consultants recommendations and patient's prognosis., unable to reach her 11/07/20 Will try LTAC/Hospice 11/08/20 Same condition 11/09/2020 Same condition 11/10/2020; family conference was held by case management yesterday 11/09/2020, family decided and agreed for SNF placement 11/11/2020; patient seen and examined, clinically no change tracheostomy on 5 L of nasal cannula oxygen, hemodynamically and clinically stable for discharge To LTAC versus SNF, DC planning per case management 11/12/2020; clinically no change, continue current management, DC planning per case management possible SNF placement 11/13/2020; patient is receiving herpes flareup treatment per ID 11/14/2020; clinically no change, awaiting SNF placement 11/15/2020; clinically no change, tracheostomy on T-piece on 5 L oxygen, awaiting placement 11/16/2020; patient awaiting placement 11/18/2020; abdominal CT scan negative for insulinoma or pancreatic tumor ,clinically no change Awaiting SNF placement 11/19/2020; remains on 4 L of oxygen tracheostomy via T-piece, awaiting SNF placement 11/20/2020 Awaiting SNF placement 11/21/2020 Waiting for SNF placement 11/22/2020 Waiting for placement 11/23/2020 Waiting for placement 11/24/2020 through 12/24/2020 Patient waiting for placement 11/27/2020; patient remains hypoglycemic on D10 W IV fluids, CT abdomen negative for insulinoma Remains stable awaiting SNF placement, tracheostomy on 5 L oxygen via T-piece 11/28/2020; awaiting SNF placement 11/29/2020; patient remains unresponsive, tracheostomy on T-piece, on 4 to 5 L of oxygen Wean as tolerated, DC planning per case management possible SNF placement 11/30/2020; awaiting SNF placement 12/02/2020; awaiting placement, stable for discharge 12/03/2020; clinically no change, awaiting placement, tracheostomy on T-piece, anoxic brain injury 12/04/2020 Patient has anoxic encephalopathy with anoxic brain brain injury Awaiting placement 12/05/2020; anoxic brain injury, awaiting placement. 12/06/20; anoxic brain injury. Awaiting placement. 12/07/2020; anoxic brain injury, awaiting placement. 12/09/2020; anoxic brain injury, awaiting placement. 12/10/2020; patient had episodes of fever overnight. CBC, BMP, blood culture, UA and chest x-ray ordered, will follow and manage accordingly. Urinalysis is suggestive of UTI and I put the patient on ceftriaxone, order urine culture. Chest x-ray is normal. 12/11/2020; patient is on ceftriaxone day 2 for UTI. We will continue to follow urine culture. 12/12/2020. Day #3 of Rocephin for UTI. We will continue for 2 more days while she is here. Present UTI. 12/13/2020. Day #4 of Rocephin for UTI. Patient remains on 50% with tracheostomy. Remains unresponsive with evidence of anoxic encephalopathy unable to make needs known. 12/14/2020. Day #5 of Rocephin for UTI completed today. Remains encephalopathic unable to make needs known. Remains on 50% unable to decrease oxygen via tracheostomy. Overall prognosis remains extremely poor. 3: Continue to monitor. Stop and monitor antibiotics at this time. Continue to wean oxygen as tolerated. Wean oxygen as tolerated. Case management working on placement. 12/16: Continue supportive care aspiration precautions. Awaiting placement discussion. Monitor fever curve. Prognosis remains poor no evidence of neurological recovery as of today 12/17: Continue supportive care, check labs and chest xray. Still monitor off antibiotics. Monitor Sodium level 12/18: Patient remains with intermittent low grade fever, reviewed EEG from September again, consistent for Ischemic Hypoxic Encephalopathy, patient with d ecorticating posturing type presentation. Will discuss with sales development director to optimize diet so we can discontinue D5. CXR with no abnormality. Discussed extensively with the nursing staff at bedside CXR IMPRESSION: 1. No acute findings. 12/19: No clinical change 12/20: No clinical change, now off abx, monitor, discussed her medications with our pharmacist I believe that her posture and rigidity is likely from underlying anoxic encephalopathy. Continue to monitor and await placement decision. Cont inue aggressive suctioning. Plan discussed in detail with the nursing staff 12/21: Continue supportive care. Will give 500 cc bolus of fluid today to replace insensible losses. Tachycardia appears to be improving. Blood pressure precludes adjusting cardiac meds. Still awaiting placement from case management. Plan discussed in detail with the nursing staff 12/22. Continue support supportive care. Tracheostomy and PEG in place. Remains nonresponsive. Awaiting placement. 12/23. Continue support supportive care. Tracheostomy and PEG in place. Remains nonresponsive. Awaiting placement. Remains tachycardic. Decrease dose of lasix. Will try low dose metoprolol. Monitor BP closely 12/24. Continue support supportive care. Tracheostomy and PEG in place. Remains nonresponsive. Awaiting placement. Heart rate slightly better. Continue to monitor BP closely 12/25. Continue support supportive care. Tracheostomy and PEG in place. Remains nonresponsive. Awaiting placement. 12/26. Continue support supportive care. Tracheostomy and PEG in place. Remains nonresponsive. Awaiting placement 12/27. Continue support supportive care. Tracheostomy and PEG in place. Remains nonresponsive. Awaiting placement 12/28. Had fever yesterday. Blood culture drawn. UA - UTI - started on ant ibiotics. Now tracheal aspirate is growing GN rods. 12/29: Continue IV antibiotics, continue supportive care. Since admission patient has shown minimal or no chance of neurological recovery. Need 24/ assistance. Currently on trach and PEG, nonverbal. Waiting on SNF placement. Discussed with case technician today. 12/30: Continue IV antibiotics for UTI, continue supportive care. Pending placem ent 12/31: continue supportive care. continue supportive care. Pending placement 01/01: continue supportive care. Pending placement. cont Iv abx for UTI till 01/04 01/02: Continue supportive care, pending placement. Sodium level slightly elevated, will start hypotonic fluid. Continue antibiotics till 01/04 01/03; cont hypotonic fluid, increase free water with TF for hypernatremia, follow BMP. cont supportive care. pending placement. cont cefepime. recx blood 01/04: resolved hyponatremia, cont supportive care, pending placement. Last day of supplement today. 01/05: Continue supportive care, pending placement. Monitor H&H and fever curve off antibiotic. 01/06; monitor off abx, suction as needed, Continue supportive care, pending placement. 01/07: Discharge pending on placement, vitals stable. Continue supportive care 01/08: Discharge pending on placement, vitals stable. Continue supportive care. stop lasix, increase metoprolol to 25mg BID for ST. 01/09 patient resting with eyes closed. Opens eyes to tactile stimulus, has a blink reflex, does not follow simple commands, has a T-collar / G-tube Lab results reviewed, low-grade fever, 01/10 Eyes open, does not follow simple commands, no acute events overnight 01/11 no acute events overnight, Waiting for placement 01/12 No acute events overnight. Patient awaiting for placement 01/13. No new issues. Awaiting placement 01/14. No new issues. Awaiting placement. 01/15. No new issues. Awaiting placement. 01/16. No new issues. Patient remain stable. Awaiting placement. Check maintenance labs. 01/17. Routine maintenance labs were ordered and are still pending. Await placement. 01/18. Patient with low-grade fever past 24-48 hrs. WBC within normal limits. Check chest x-ray, urinalysis and consider blood cultures. Continue tracheostomy care, secretion control and airway management. Patient currently with PEG and tube feedings at 60 cc an hour. Nutritional support and aspiration precautions. 01/19. Temperature 100.7 overnight. Continue to monitor closely. Continue tracheostomy care, secretion control and airway management. Patient currently with PEG and tube feedings at 60 cc an hour. Nutritional support and aspiration precautions. 01/20. Continue to monitor closely. Continue tracheostomy care, secretion control and airway management. Patient currently with PEG and tube feedings at 60 cc an hour. Nutritional support and aspiration precautions. 01/21. Afebrile overnight. Continue to monitor closely. Continue tracheostomy care, secretion control and airway management. Patient currently with PEG and tube feedings at 60 cc an hour. Nutritional support and aspiration precautions. 01/22. Continue to monitor closely. Continue tracheostomy care, secretion control and airway management. Patient currently with PEG and tube feedings at 60 cc an hour. Nutritional support and aspiration precautions. 01/23. Continue tracheostomy care, secretion control and airway management. Patient currently with PEG and tube feedings at 60 cc an hour. Nutritional support and aspiration precautions. Will get routine labs tomorrow. 01/24. Labs reviewed. No abnormalities. Continue tracheostomy care, secretion control and airway management. Patient currently with PEG and tube feedings at 60 cc an hour. Nutritional support and aspiration precautions. 01/25. Temp 100.6. More sleepy today. Will get chest xray, blood culture, urinalysis, sputum cultures. Will start on empirical abx. 01/26: Vitals noted, slightly tachycardic. Follow culture work-up, continue supportive care. 01/27: Spiking low-grade temp, negative UA, sputum culture and recent blood cultures also negative. Continue to monitor off antibiotics. Continue supportive care. Pending placement. 4/15: cont to spike low grade temp, negative UA, sputum culture and recent blood cultures also negative. Continue to monitor off antibiotics. will order fpr sinus xry. Continue supportive care. Pending placement. 01/29: Continue to follow clinically, intermittently spiking low-grade temp, all recent culture work is negative, negative UA, normal respiratory jaylan 1 tracheal aspirate. Vitals noted and currently stable. Pending placement 01/30: Clinically unchanged, continue to monitor vitals, continue supportive cares. Pending placement. Discussed plan of care with RN at the bedside. 01/31 - TODATE: cont supportive care, pending placement. monitor vitals carefully. Discussed with family at the bedside. 02/06. Patient afebrile today. Continue trach care. Secretions stable today. Culture data negative so far. Awaiting placement. 02/07. Awaiting placement awaiting family member to evaluate papers. Continue trach care secretions stable. Pending placement 02/09: Intermittent fever, ?drug related, will check cxr and also labs. No new complaints. 02/10: Patient's trach dislodged today. Nevertheless respiratory status is intact attempt to reinsert was unsuccessful will monitor discussed with nursing staff to pay close attention to the patient. Considering that this was not a planned decannulation I will start the patient on continuous pulse ox until full evaluation was done by pulmonary. 02/13/2021 Vital signs stable Unresponsive secondary to anoxic encephalopathy Awaiting placement 02/14/2021 Awaiting placement Objective - Exam Narrative Exam: Patient with tracheostomy - Constitutional Vitals: Vital Signs - 12hr 02/14/21 02/14/21 02/14/21 04:53 09:32 10:00 Temperature 99.0 F Pulse Rate 89 Respiratory 18 19 Rate Blood Pressure 119/77 Blood Pressure [Left] O2 Sat by Pulse 100 99 99 Oximetry 02/14/21 02/14/21 10:43 10:45 Temperature 99.1 F Pulse Rate 79 79 Respiratory 17 Rate Blood Pressure 126/63 Blood Pressure 126/63 [Left] O2 Sat by Pulse 99 Oximetry General appearance: Present: no acute distress, well-nourished - EENT Eyes: PERRL, EOM intact ENT: hearing intact, clear oral mucosa Ears: bilateral: normal - Neck Neck: supple, normal ROM, other (Trach in place) - Respiratory Respiratory effort: normal Respiratory: bilateral: CTA - Breasts Breasts: normal - Cardiovascular Rhythm: regular Heart Sounds: Present: S1 & S2. Absent: gallop, rub Extremities: pulses intact, No edema, normal color, Full ROM - Gastrointestinal General gastrointestinal: Present: soft, non-tender, non-distended, normal bowel sounds - Genitourinary Female genitourinary: normal - Integumentary Integumentary: clear, warm, dry - Musculoskeletal Musculoskeletal: 1, strength equal bilaterally - Neurologic Neurologic: moves all extremities - Psychiatric Psychiatric: cooperative, other (Unresponsive) - Labs CBC & Chem 7: 02/12/21 04:09 02/12/21 04:09 Labs: Abnormal lab results 02/14/21 Range/Units 00:52 POC Glucose 115 H (70-105) mg/dL HEART Score - HEART Score Age: < 45 Risk factors: 1-2 risk factors - Critical Actions Critical Actions: >7 pts:50-65% risk of adverse cardiac event. Early invasive measures
[2021-02-15] MEDS: ENOXAPARIN 40 MG/0.4 ML INJ SUB-Q SCH (10:18)
[2021-02-15] MEDS: FAMOTIDINE 20 MG TAB PO SCH ×2 (10:19→22:22)
[2021-02-15] MEDS: METOPROLOL TARTRATE 25 MG TAB PO SCH ×2 (10:19→22:22)
--- NOTE | 2021-02-15 11:19 | Progress Note ---
Assessment and Plan Imp: 1. Eclampsia w/ seizures s/p 2. S/p CP arrest 3. Encephalopathy, probably anoxic 4. Morbid obesity 5. DIC 6. ADOLPH 7. Acute respiratory failure, hypoxia 8. C.diff colitis 9. S/p Trach and inadvertent decannulation Rec: 1. Doing well after inadvertent decannulation 2 days ago, on RA, with no distress, and clear CXR; will monitor w/ you 2. TFs, DVT PPx 3. Supportive care 4. Defer management of ongoing fevers to primary team 5. Placement Subjective Date of service: 02/15/21 Principal diagnosis: Eclampsia/HELLP Syndrome, ADOLPH, DIC; s/p , s/p supracervical hyst Interval history: No significant change in condition. Tolerating being decannulated reasonably well Objective Vital Signs - 12hr 02/15/21 02/15/21 02/15/21 05:08 10:13 10:19 Temperature 99.0 F 98.9 F Pulse Rate 108 H 105 H 101 H Respiratory 18 20 Rate Blood Pressure 100/56 118/72 O2 Sat by Pulse 99 100 Oximetry Constitutional: no acute distress, alert Eyes: non-icteric ENT: oropharynx moist Neck: other (large in cirumference) Effort: normal Ascultation: Bilateral: clear, diminished breath sounds, rhonchi, other (coarse BS bilaterally) Percussion: Bilateral: not dull Cardiovascular: regular rate and rhythm, other (no mrg) Gastrointestinal: normoactive bowel sounds, soft Extremities: no cyanosis, pink and warm Neurologic: other (unresponsive, not following commands, not tracking) Psychiatric: mood appropriate, affect normal CBC and BMP: 02/12/21 04:09 02/12/21 04:09 ABG, PT/INR, D-dimer: ABG ABG pH 7.459 pH Units (7.350-7.450) H 10/26/20 10:30 POC ABG pCO2 20.7 mmHg (32.0-48.0) L 10/13/20 07:18 ABG pCO2 32.4 mm Hg 10/26/20 10:30 POC ABG pO2 137.9 mmHg (83-108) H 10/13/20 07:18 ABG pO2 112.2 mm Hg (80.0-90.0) H 10/26/20 10:30 POC ABG HCO3 14.8 10/13/20 07:18 ABG O2 Saturation 98.2 % (95.0-99.0) 10/26/20 10:30 PT/INR, D-dimer PT 13.6 Sec. (12.2-14.9) 10/21/20 13:54 INR 1.06 (0.87-1.13) 10/21/20 13:54 D-Dimer 1974.47 ng/mlDDU (0-234) H 11/11/20 13:50 Abnormal lab findings: Abnormal Labs 10/02/20 10/02/20 10/02/20 12:03 12:18 12:18 WBC 14.9 H RBC Hgb 9.1 L Hct MCV MCH 22 L MCHC 28 L RDW 17.6 H Plt Count 102 L Lymph % (Auto) [place] % (Auto) Lymph # (Auto) [place] # (Auto) Baso # (Auto) Seg Neutrophils % Seg Neuts % (Manual) 36.0 L Lymphocytes % (Manual) 49.0 H Monocytes % (Manual) Nucleated RBC % 6.0 H Seg Neutrophils # Seg Neutrophils # Man Lymphocytes # (Manual) 7.3 H Monocytes # (Manual) PT INR APTT Fibrinogen D-Dimer ABG pH POC ABG pCO2 POC ABG pO2 ABG pO2 ABG HCO3 ABG Base Excess ABG Hemoglobin ABG Oxyhemoglobin ABG Sodium ABG Potassium ABG Chloride ABG Glucose VBG pH Oxyhemoglobin Carboxyhemoglobin Sodium 134 L Potassium Chloride Carbon Dioxide 12 L BUN 6 L Creatinine Glucose 390 H POC Glucose 451 H Random Insulin C-Peptide Lactic Acid Calcium Ionized Calcium Phosphorus Magnesium AST 135 H ALT 85 H Alkaline Phosphatase 172 H Lactate Dehydrogenase 641 H NT-Pro-B Natriuret Pep Total Protein 5.4 L Albumin 2.3 L Arterial Blood Glucose Arterial Blood Ionized Calcium Urine pH Urine WBC (Auto) U Epithel Cells (Auto) Vancomycin Trough Phenytoin Crossmatch 10/02/20 10/02/20 10/02/20 12:50 13:05 13:05 WBC 38.6 H RBC Hgb 8.9 L Hct 29.0 L MCV 73 L MCH 22 L MCHC RDW 17.2 H Plt Count Lymph % (Auto) [place] % (Auto) Lymph # (Auto) [place] # (Auto) Baso # (Auto) Seg Neutrophils % Seg Neuts % (Manual) Lymphocytes % (Manual) Monocytes % (Manual) Nucleated RBC % 2.0 H Seg Neutrophils # Seg Neutrophils # Man 20.1 H Lymphocytes # (Manual) 10.4 H Monocytes # (Manual) 2.3 H PT INR APTT Fibrinogen D-Dimer ABG pH POC ABG pCO2 POC ABG pO2 ABG pO2 ABG HCO3 ABG Base Excess ABG Hemoglobin ABG Oxyhemoglobin ABG Sodium ABG Potassium ABG Chloride ABG Glucose VBG pH Oxyhemoglobin Carboxyhemoglobin Sodium Potassium Chloride Carbon Dioxide BUN Creatinine Glucose POC Glucose Random Insulin C-Peptide Lactic Acid Calcium Ionized Calcium Phosphorus Magnesium AST 184 H ALT 113 H Alkaline Phosphatase Lactate Dehydrogenase 769 H NT-Pro-B Natriuret Pep Total Protein Albumin Arterial Blood Glucose Arterial Blood Ionized Calcium Urine pH Urine WBC (Auto) U Epithel Cells (Auto) Vancomycin Trough Phenytoin Crossmatch See Detail 10/02/20 10/02/20 10/02/20 16:25 16:35 16:35 WBC RBC Hgb Hct MCV MCH MCHC RDW Plt Count Lymph % (Auto) [place] % (Auto) Lymph # (Auto) [place] # (Auto) Baso # (Auto) Seg Neutrophils % Seg Neuts % (Manual) Lymphocytes % (Manual) Monocytes % (Manual) Nucleated RBC % Seg Neutrophils # Seg Neutrophils # Man Lymphocytes # (Manual) Monocytes # (Manual) PT INR APTT Fibrinogen D-Dimer ABG pH 7.031 L* POC ABG pCO2 POC ABG pO2 ABG pO2 116.8 H ABG HCO3 12.7 L ABG Base Excess -16.9 L ABG Hemoglobin 7.8 L ABG Oxyhemoglobin ABG Sodium ABG Potassium ABG Chloride ABG Glucose VBG pH Oxyhemoglobin 94.9 L Carboxyhemoglobin Sodium Potassium Chloride Carbon Dioxide BUN Creatinine Glucose 403 H POC Glucose Random Insulin C-Peptide Lactic Acid 11.40 H* Calcium 6.3 L D Ionized Calcium Phosphorus Magnesium AST 70 H ALT Alkaline Phosphatase Lactate Dehydrogenase NT-Pro-B Natriuret Pep Total Protein 1.9 L D Albumin 1.2 L Arterial Blood Glucose Arterial Blood Ionized Calcium Urine pH Urine WBC (Auto) U Epithel Cells (Auto) Vancomycin Trough Phenytoin Crossmatch 10/02/20 10/02/20 10/02/20 18:18 18:18 22:30 WBC 11.5 H RBC 2.06 L Hgb 5.5 L* D Hct 17.3 L* D MCV MCH 27 L MCHC RDW 19.5 H Plt Count 60 L Lymph % (Auto) [place] % (Auto) Lymph # (Auto) [place] # (Auto) Baso # (Auto) Seg Neutrophils % Seg Neuts % (Manual) Lymphocytes % (Manual) 8.0 L Monocytes % (Manual) 8.0 H Nucleated RBC % 8.0 H Seg Neutrophils # Seg Neutrophils # Man Lymphocytes # (Manual) 0.9 L Monocytes # (Manual) 0.9 H PT 37.1 H INR 3.71 H APTT 135.8 H* Fibrinogen D-Dimer ABG pH 7.067 L* POC ABG pCO2 POC ABG pO2 ABG pO2 183.0 H ABG HCO3 14.1 L ABG Base Excess -15.1 L ABG Hemoglobin 7.7 L ABG Oxyhemoglobin ABG Sodium ABG Potassium ABG Chloride ABG Glucose VBG pH Oxyhemoglobin Carboxyhemoglobin Sodium Potassium Chloride Carbon Dioxide BUN Creatinine Glucose POC Glucose Random Insulin C-Peptide Lactic Acid Calcium Ionized Calcium Phosphorus Magnesium AST ALT Alkaline Phosphatase Lactate Dehydrogenase NT-Pro-B Natriuret Pep Total Protein Albumin Arterial Blood Glucose Arterial Blood Ionized Calcium Urine pH Urine WBC (Auto) U Epithel Cells (Auto) Vancomycin Trough Phenytoin Crossmatch 10/02/20 10/02/20 10/03/20 Unknown Unknown 00:01 WBC RBC Hgb Hct MCV MCH MCHC RDW Plt Count Lymph % (Auto) [place] % (Auto) Lymph # (Auto) [place] # (Auto) Baso # (Auto) Seg Neutrophils % Seg Neuts % (Manual) Lymphocytes % (Manual) Monocytes % (Manual) Nucleated RBC % Seg Neutrophils # Seg Neutrophils # Man Lymphocytes # (Manual) Monocytes # (Manual) PT 61.1 H INR 6.92 H* APTT 158.7 H* Fibrinogen < 60 L* D-Dimer > 69908 H ABG pH POC ABG pCO2 POC ABG pO2 ABG pO2 ABG HCO3 ABG Base Excess ABG Hemoglobin ABG Oxyhemoglobin ABG Sodium ABG Potassium ABG Chloride ABG Glucose VBG pH 6.949 L* Oxyhemoglobin Carboxyhemoglobin Sodium Potassium Chloride Carbon Dioxide BUN Creatinine Glucose POC Glucose 196 H Random Insulin C-Peptide Lactic Acid Calcium Ionized Calcium Phosphorus Magnesium AST ALT Alkaline Phosphatase Lactate Dehydrogenase NT-Pro-B Natriuret Pep Total Protein Albumin Arterial Blood Glucose Arterial Blood Ionized Calcium Urine pH Urine WBC (Auto) U Epithel Cells (Auto) Vancomycin Trough Phenytoin Crossmatch 10/03/20 10/03/20 10/03/20 00:40 00:40 00:40 WBC RBC Hgb Hct MCV MCH MCHC RDW Plt Count Lymph % (Auto) [place] % (Auto) Lymph # (Auto) [place] # (Auto) Baso # (Auto) Seg Neutrophils % Seg Neuts % (Manual) Lymphocytes % (Manual) Monocytes % (Manual) Nucleated RBC % Seg Neutrophils # Seg Neutrophils # Man Lymphocytes # (Manual) Monocytes # (Manual) PT 15.1 H INR 1.21 H APTT Fibrinogen D-Dimer ABG pH POC ABG pCO2 POC ABG pO2 ABG pO2 ABG HCO3 ABG Base Excess ABG Hemoglobin ABG Oxyhemoglobin ABG Sodium ABG Potassium ABG Chloride ABG Glucose VBG pH Oxyhemoglobin Carboxyhemoglobin Sodium 136 L Potassium Chloride Carbon Dioxide BUN Creatinine 1.6 H D Glucose 106 H POC Glucose Random Insulin C-Peptide Lactic Acid 5.60 H* Calcium 6.5 L Ionized Calcium Phosphorus Magnesium AST 232 H ALT 104 H Alkaline Phosphatase Lactate Dehydrogenase NT-Pro-B Natriuret Pep Total Protein 3.9 L D Albumin 2.4 L Arterial Blood Glucose Arterial Blood Ionized Calcium Urine pH Urine WBC (Auto) U Epithel Cells (Auto) Vancomycin Trough Phenytoin Crossmatch 10/03/20 10/03/20 10/03/20 02:08 02:08 02:08 WBC 17.6 H RBC 3.27 L Hgb 9.9 L D Hct 29.9 L D MCV MCH MCHC RDW 16.5 H Plt Count 75 L Lymph % (Auto) [place] % (Auto) Lymph # (Auto) [place] # (Auto) Baso # (Auto) Seg Neutrophils % Seg Neuts % (Manual) 76.0 H Lymphocytes % (Manual) Monocytes % (Manual) Nucleated RBC % 8.0 H Seg Neutrophils # Seg Neutrophils # Man 13.4 H Lymphocytes # (Manual) Monocytes # (Manual) PT INR APTT Fibrinogen D-Dimer ABG pH POC ABG pCO2 POC ABG pO2 ABG pO2 ABG HCO3 ABG Base Excess ABG Hemoglobin ABG Oxyhemoglobin ABG Sodium ABG Potassium ABG Chloride ABG Glucose VBG pH Oxyhemoglobin Carboxyhemoglobin Sodium Potassium Chloride Carbon Dioxide 19 L BUN Creatinine 1.4 H Glucose 306 H POC Glucose Random Insulin C-Peptide Lactic Acid 10.50 H* Calcium 6.4 L Ionized Calcium Phosphorus Magnesium AST ALT Alkaline Phosphatase Lactate Dehydrogenase NT-Pro-B Natriuret Pep Total Protein Albumin Arterial Blood Glucose Arterial Blood Ionized Calcium Urine pH Urine WBC (Auto) U Epithel Cells (Auto) Vancomycin Trough Phenytoin Crossmatch 10/03/20 10/03/20 10/03/20 02:42 03:59 05:31 WBC RBC Hgb Hct MCV MCH MCHC RDW Plt Count Lymph % (Auto) [place] % (Auto) Lymph # (Auto) [place] # (Auto) Baso # (Auto) Seg Neutrophils % Seg Neuts % (Manual) Lymphocytes % (Manual) Monocytes % (Manual) Nucleated RBC % Seg Neutrophils # Seg Neutrophils # Man Lymphocytes # (Manual) Monocytes # (Manual) PT INR APTT Fibrinogen D-Dimer ABG pH 7.144 L POC ABG pCO2 54.4 H POC ABG pO2 ABG pO2 ABG HCO3 ABG Base Excess ABG Hemoglobin 10.0 L ABG Oxyhemoglobin ABG Sodium ABG Potassium ABG Chloride 108.0 H ABG Glucose 306 H VBG pH Oxyhemoglobin Carboxyhemoglobin Sodium Potassium Chloride Carbon Dioxide BUN Creatinine Glucose POC Glucose 209 H Random Insulin C-Peptide Lactic Acid 9.20 H* Calcium Ionized Calcium Phosphorus Magnesium AST ALT Alkaline Phosphatase Lactate Dehydrogenase NT-Pro-B Natriuret Pep Total Protein Albumin Arterial Blood Glucose 306 H Arterial Blood Ionized Calcium 3.7 L Urine pH Urine WBC (Auto) U Epithel Cells (Auto) Vancomycin Trough Phenytoin Crossmatch 10/03/20 10/03/20 10/03/20 09:00 09:00 09:00 WBC 27.4 H RBC 2.84 L Hgb 8.5 L Hct 25.1 L MCV MCH MCHC RDW 16.1 H Plt Count 72 L Lymph % (Auto) [place] % (Auto) Lymph # (Auto) [place] # (Auto) Baso # (Auto) Seg Neutrophils % Seg Neuts % (Manual) Lymphocytes % (Manual) 11.0 L Monocytes % (Manual) Nucleated RBC % 3.0 H Seg Neutrophils # Seg Neutrophils # Man 18.4 H Lymphocytes # (Manual) Monocytes # (Manual) 1.9 H PT INR APTT Fibrinogen D-Dimer ABG pH POC ABG pCO2 POC ABG pO2 ABG pO2 ABG HCO3 ABG Base Excess ABG Hemoglobin ABG Oxyhemoglobin ABG Sodium ABG Potassium ABG Chloride ABG Glucose VBG pH Oxyhemoglobin Carboxyhemoglobin Sodium Potassium Chloride Carbon Dioxide BUN Creatinine 1.7 H Glucose 216 H POC Glucose Random Insulin C-Peptide Lactic Acid 9.20 H* Calcium 6.3 L Ionized Calcium Phosphorus Magnesium AST 331 H ALT 171 H Alkaline Phosphatase Lactate Dehydrogenase NT-Pro-B Natriuret Pep Total Protein 3.7 L Albumin 1.9 L Arterial Blood Glucose Arterial Blood Ionized Calcium Urine pH Urine WBC (Auto) U Epithel Cells (Auto) Vancomycin Trough Phenytoin Crossmatch 10/03/20 10/03/20 10/03/20 11:20 11:46 11:50 WBC 28.7 H RBC 2.67 L Hgb 8.0 L Hct 23.7 L MCV MCH MCHC RDW 16.6 H Plt Count 76 L Lymph % (Auto) [place] % (Auto) Lymph # (Auto) [place] # (Auto) Baso # (Auto) Seg Neutrophils % Seg Neuts % (Manual) Lymphocytes % (Manual) Monocytes % (Manual) Nucleated RBC % Seg Neutrophils # Seg Neutrophils # Man Lymphocytes # (Manual) Monocytes # (Manual) PT INR APTT Fibrinogen D-Dimer ABG pH POC ABG pCO2 POC ABG pO2 ABG pO2 ABG HCO3 ABG Base Excess ABG Hemoglobin ABG Oxyhemoglobin ABG Sodium ABG Potassium ABG Chloride ABG Glucose VBG pH Oxyhemoglobin Carboxyhemoglobin Sodium Potassium Chloride Carbon Dioxide BUN Creatinine Glucose POC Glucose 125 H Random Insulin C-Peptide Lactic Acid 8.00 H* Calcium Ionized Calcium Phosphorus Magnesium AST ALT Alkaline Phosphatase Lactate Dehydrogenase NT-Pro-B Natriuret Pep Total Protein Albumin Arterial Blood Glucose Arterial Blood Ionized Calcium Urine pH Urine WBC (Auto) U Epithel Cells (Auto) Vancomycin Trough Phenytoin Crossmatch 10/03/20 10/04/20 10/04/20 11:50 00:40 00:40 WBC RBC Hgb 6.8 L Hct 19.4 L* MCV MCH MCHC RDW Plt Count 49 L Lymph % (Auto) [place] % (Auto) Lymph # (Auto) [place] # (Auto) Baso # (Auto) Seg Neutrophils % Seg Neuts % (Manual) Lymphocytes % (Manual) Monocytes % (Manual) Nucleated RBC % Seg Neutrophils # Seg Neutrophils # Man Lymphocytes # (Manual) Monocytes # (Manual) PT INR APTT Fibrinogen D-Dimer ABG pH 7.244 L POC ABG pCO2 POC ABG pO2 ABG pO2 ABG HCO3 ABG Base Excess -4.5 L ABG Hemoglobin 7.3 L ABG Oxyhemoglobin ABG Sodium ABG Potassium ABG Chloride ABG Glucose VBG pH Oxyhemoglobin Carboxyhemoglobin Sodium Potassium Chloride Carbon Dioxide BUN Creatinine Glucose POC Glucose Random Insulin C-Peptide Lactic Acid Calcium Ionized Calcium Phosphorus Magnesium AST ALT Alkaline Phosphatase Lactate Dehydrogenase NT-Pro-B Natriuret Pep Total Protein Albumin Arterial Blood Glucose Arterial Blood Ionized Calcium Urine pH Urine WBC (Auto) U Epithel Cells (Auto) Vancomycin Trough Phenytoin Crossmatch 10/04/20 10/04/20 10/04/20 03:53 10:00 10:00 WBC 14.6 H RBC 2.57 L Hgb 7.6 L Hct 22.5 L MCV MCH MCHC RDW 15.8 H Plt Count 38 L Lymph % (Auto) 7.7 L [place] % (Auto) Lymph # (Auto) 1.1 L [place] # (Auto) 0.9 H Baso # (Auto) Seg Neutrophils % 85.6 H Seg Neuts % (Manual) Lymphocytes % (Manual) Monocytes % (Manual) Nucleated RBC % Seg Neutrophils # 12.5 H Seg Neutrophils # Man Lymphocytes # (Manual) Monocytes # (Manual) PT INR APTT Fibrinogen D-Dimer ABG pH POC ABG pCO2 POC ABG pO2 110.6 H ABG pO2 ABG HCO3 ABG Base Excess ABG Hemoglobin 6.7 L ABG Oxyhemoglobin ABG Sodium 132.0 L ABG Potassium ABG Chloride ABG Glucose 111 H VBG pH Oxyhemoglobin Carboxyhemoglobin Sodium 134 L D Potassium Chloride 97.6 L Carbon Dioxide BUN Creatinine 1.7 H Glucose POC Glucose Random Insulin C-Peptide Lactic Acid Calcium 6.3 L Ionized Calcium Phosphorus Magnesium AST 203 H ALT 81 H Alkaline Phosphatase Lactate Dehydrogenase NT-Pro-B Natriuret Pep Total Protein 3.9 L Albumin 2.3 L Arterial Blood Glucose 111 H Arterial Blood Ionized Calcium 3.5 L Urine pH Urine WBC (Auto) U Epithel Cells (Auto) Vancomycin Trough Phenytoin Crossmatch 10/04/20 10/04/20 10/04/20 10:00 10:00 10:14 WBC RBC Hgb Hct MCV MCH MCHC RDW Plt Count Lymph % (Auto) [place] % (Auto) Lymph # (Auto) [place] # (Auto) Baso # (Auto) Seg Neutrophils % Seg Neuts % (Manual) Lymphocytes % (Manual) Monocytes % (Manual) Nucleated RBC % Seg Neutrophils # Seg Neutrophils # Man Lymphocytes # (Manual) Monocytes # (Manual) PT INR APTT Fibrinogen D-Dimer > 13609 H ABG pH POC ABG pCO2 POC ABG pO2 ABG pO2 ABG HCO3 ABG Base Excess ABG Hemoglobin ABG Oxyhemoglobin ABG Sodium ABG Potassium ABG Chloride ABG Glucose VBG pH Oxyhemoglobin Carboxyhemoglobin Sodium Potassium Chloride Carbon Dioxide BUN Creatinine Glucose POC Glucose Random Insulin C-Peptide Lactic Acid 3.90 H* Calcium Ionized Calcium Phosphorus Magnesium AST ALT Alkaline Phosphatase Lactate Dehydrogenase NT-Pro-B Natriuret Pep 2788 H Total Protein Albumin Arterial Blood Glucose Arterial Blood Ionized Calcium Urine pH Urine WBC (Auto) U Epithel Cells (Auto) Vancomycin Trough Phenytoin Crossmatch 10/04/20 10/04/20 10/04/20 14:00 14:00 18:00 WBC 15.7 H RBC 3.17 L Hgb 9.3 L 9.6 L Hct 27.2 L 28.0 L MCV MCH MCHC RDW 16.9 H Plt Count 41 L Lymph % (Auto) 8.6 L [place] % (Auto) Lymph # (Auto) [place] # (Auto) 0.9 H Baso # (Auto) Seg Neutrophils % 85.4 H Seg Neuts % (Manual) Lymphocytes % (Manual) Monocytes % (Manual) Nucleated RBC % Seg Neutrophils # 13.4 H Seg Neutrophils # Man Lymphocytes # (Manual) Monocytes # (Manual) PT INR APTT Fibrinogen D-Dimer ABG pH POC ABG pCO2 POC ABG pO2 ABG pO2 ABG HCO3 ABG Base Excess ABG Hemoglobin ABG Oxyhemoglobin ABG Sodium ABG Potassium ABG Chloride ABG Glucose VBG pH Oxyhemoglobin Carboxyhemoglobin Sodium 133 L Potassium Chloride 96.4 L Carbon Dioxide BUN 18 H Creatinine 1.7 H Glucose POC Glucose Random Insulin C-Peptide Lactic Acid Calcium 6.3 L Ionized Calcium Phosphorus Magnesium AST ALT Alkaline Phosphatase Lactate Dehydrogenase NT-Pro-B Natriuret Pep Total Protein Albumin Arterial Blood Glucose Arterial Blood Ionized Calcium Urine pH Urine WBC (Auto) U Epithel Cells (Auto) Vancomycin Trough Phenytoin Crossmatch 10/04/20 10/04/20 10/05/20 18:00 22:00 05:00 WBC 17.6 H RBC 3.34 L Hgb 9.9 L Hct 29.4 L MCV MCH MCHC RDW 17.1 H Plt Count 56 L Lymph % (Auto) 8.5 L [place] % (Auto) Lymph # (Auto) [place] # (Auto) 1.0 H Baso # (Auto) Seg Neutrophils % 85.1 H Seg Neuts % (Manual) Lymphocytes % (Manual) Monocytes % (Manual) Nucleated RBC % Seg Neutrophils # 15.0 H Seg Neutrophils # Man Lymphocytes # (Manual) Monocytes # (Manual) PT INR APTT Fibrinogen D-Dimer ABG pH POC ABG pCO2 POC ABG pO2 ABG pO2 ABG HCO3 ABG Base Excess ABG Hemoglobin ABG Oxyhemoglobin ABG Sodium ABG Potassium ABG Chloride ABG Glucose VBG pH Oxyhemoglobin Carboxyhemoglobin Sodium 136 L Potassium Chloride Carbon Dioxide BUN 18 H Creatinine 1.7 H Glucose POC Glucose Random Insulin C-Peptide Lactic Acid 2.30 H* Calcium 6.6 L Ionized Calcium Phosphorus Magnesium AST ALT Alkaline Phosphatase Lactate Dehydrogenase NT-Pro-B Natriuret Pep Total Protein Albumin Arterial Blood Glucose Arterial Blood Ionized Calcium Urine pH Urine WBC (Auto) U Epithel Cells (Auto) Vancomycin Trough Phenytoin Crossmatch 10/05/20 10/05/20 10/05/20 05:00 05:00 05:03 WBC RBC Hgb Hct MCV MCH MCHC RDW Plt Count Lymph % (Auto) [place] % (Auto) Lymph # (Auto) [place] # (Auto) Baso # (Auto) Seg Neutrophils % Seg Neuts % (Manual) Lymphocytes % (Manual) Monocytes % (Manual) Nucleated RBC % Seg Neutrophils # Seg Neutrophils # Man Lymphocytes # (Manual) Monocytes # (Manual) PT INR APTT Fibrinogen D-Dimer ABG pH 7.458 H POC ABG pCO2 POC ABG pO2 ABG pO2 74.3 L ABG HCO3 27.5 H ABG Base Excess 3.4 H ABG Hemoglobin 10.0 L ABG Oxyhemoglobin ABG Sodium ABG Potassium ABG Chloride ABG Glucose VBG pH Oxyhemoglobin 94.9 L Carboxyhemoglobin Sodium Potassium Chloride Carbon Dioxide BUN 19 H Creatinine 1.8 H Glucose POC Glucose Random Insulin C-Peptide Lactic Acid Calcium 6.8 L Ionized Calcium 3.9 L Phosphorus Magnesium AST 225 H ALT 85 H Alkaline Phosphatase Lactate Dehydrogenase NT-Pro-B Natriuret Pep Total Protein 4.5 L Albumin 2.7 L Arterial Blood Glucose Arterial Blood Ionized Calcium Urine pH Urine WBC (Auto) U Epithel Cells (Auto) Vancomycin Trough Phenytoin Crossmatch 10/05/20 10/05/20 10/05/20 10:10 15:00 19:40 WBC RBC Hgb Hct MCV MCH MCHC RDW Plt Count Lymph % (Auto) [place] % (Auto) Lymph # (Auto) [place] # (Auto) Baso # (Auto) Seg Neutrophils % Seg Neuts % (Manual) Lymphocytes % (Manual) Monocytes % (Manual) Nucleated RBC % Seg Neutrophils # Seg Neutrophils # Man Lymphocytes # (Manual) Monocytes # (Manual) PT INR APTT Fibrinogen D-Dimer ABG pH POC ABG pCO2 POC ABG pO2 ABG pO2 ABG HCO3 ABG Base Excess ABG Hemoglobin ABG Oxyhemoglobin ABG Sodium ABG Potassium ABG Chloride ABG Glucose VBG pH Oxyhemoglobin Carboxyhemoglobin Sodium Potassium 3.5 L Chloride Carbon Dioxide 31 H 32 H BUN 19 H 19 H Creatinine 1.8 H 1.8 H Glucose POC Glucose Random Insulin C-Peptide Lactic Acid Calcium 7.0 L 7.2 L Ionized Calcium Phosphorus Magnesium 2.90 H AST ALT Alkaline Phosphatase Lactate Dehydrogenase NT-Pro-B Natriuret Pep Total Protein Albumin Arterial Blood Glucose Arterial Blood Ionized Calcium Urine pH Urine WBC (Auto) U Epithel Cells (Auto) Vancomycin Trough Phenytoin Crossmatch 10/06/20 10/06/20 10/06/20 01:05 03:12 04:00 WBC 17.1 H RBC 3.47 L Hgb Hct MCV MCH MCHC RDW 17.4 H Plt Count 82 L Lymph % (Auto) 8.3 L [place] % (Auto) Lymph # (Auto) [place] # (Auto) 1.1 H Baso # (Auto) Seg Neutrophils % 83.8 H Seg Neuts % (Manual) Lymphocytes % (Manual) Monocytes % (Manual) Nucleated RBC % Seg Neutrophils # 14.3 H Seg Neutrophils # Man Lymphocytes # (Manual) Monocytes # (Manual) PT INR APTT Fibrinogen D-Dimer ABG pH 7.474 H POC ABG pCO2 POC ABG pO2 129.5 H ABG pO2 ABG HCO3 ABG Base Excess ABG Hemoglobin 11.4 L ABG Oxyhemoglobin ABG Sodium 131.8 L ABG Potassium ABG Chloride ABG Glucose 103 H VBG pH Oxyhemoglobin Carboxyhemoglobin 0.3 L Sodium Potassium Chloride Carbon Dioxide BUN Creatinine Glucose POC Glucose Random Insulin C-Peptide Lactic Acid Calcium Ionized Calcium Phosphorus Magnesium 3.70 H AST ALT Alkaline Phosphatase Lactate Dehydrogenase NT-Pro-B Natriuret Pep Total Protein Albumin Arterial Blood Glucose 103 H Arterial Blood Ionized Calcium 4.2 L Urine pH Urine WBC (Auto) U Epithel Cells (Auto) Vancomycin Trough Phenytoin Crossmatch 10/06/20 10/06/20 10/06/20 04:00 05:31 08:12 WBC RBC Hgb Hct MCV MCH MCHC RDW Plt Count Lymph % (Auto) [place] % (Auto) Lymph # (Auto) [place] # (Auto) Baso # (Auto) Seg Neutrophils % Seg Neuts % (Manual) Lymphocytes % (Manual) Monocytes % (Manual) Nucleated RBC % Seg Neutrophils # Seg Neutrophils # Man Lymphocytes # (Manual) Monocytes # (Manual) PT INR APTT Fibrinogen D-Dimer ABG pH POC ABG pCO2 POC ABG pO2 ABG pO2 ABG HCO3 ABG Base Excess ABG Hemoglobin ABG Oxyhemoglobin ABG Sodium ABG Potassium ABG Chloride ABG Glucose VBG pH Oxyhemoglobin Carboxyhemoglobin Sodium Potassium 3.5 L Chloride Carbon Dioxide BUN 19 H Creatinine 1.8 H Glucose 102 H POC Glucose 116 H Random Insulin C-Peptide Lactic Acid Calcium 7.2 L Ionized Calcium Phosphorus Magnesium 5.40 H AST 307 H ALT 137 H Alkaline Phosphatase Lactate Dehydrogenase NT-Pro-B Natriuret Pep Total Protein 4.5 L Albumin 2.6 L Arterial Blood Glucose Arterial Blood Ionized Calcium Urine pH Urine WBC (Auto) U Epithel Cells (Auto) Vancomycin Trough Phenytoin Crossmatch 10/06/20 10/06/20 10/06/20 11:00 11:50 20:13 WBC RBC Hgb Hct MCV MCH MCHC RDW Plt Count Lymph % (Auto) [place] % (Auto) Lymph # (Auto) [place] # (Auto) Baso # (Auto) Seg Neutrophils % Seg Neuts % (Manual) Lymphocytes % (Manual) Monocytes % (Manual) Nucleated RBC % Seg Neutrophils # Seg Neutrophils # Man Lymphocytes # (Manual) Monocytes # (Manual) PT INR APTT Fibrinogen D-Dimer ABG pH POC ABG pCO2 POC ABG pO2 ABG pO2 ABG HCO3 ABG Base Excess ABG Hemoglobin ABG Oxyhemoglobin ABG Sodium ABG Potassium ABG Chloride ABG Glucose VBG pH Oxyhemoglobin Carboxyhemoglobin Sodium Potassium Chloride Carbon Dioxide BUN Creatinine Glucose POC Glucose 106 H Random Insulin C-Peptide Lactic Acid Calcium Ionized Calcium Phosphorus Magnesium 6.50 H 6.20 H AST ALT Alkaline Phosphatase Lactate Dehydrogenase NT-Pro-B Natriuret Pep Total Protein Albumin Arterial Blood Glucose Arterial Blood Ionized Calcium Urine pH Urine WBC (Auto) U Epithel Cells (Auto) Vancomycin Trough Phenytoin Crossmatch 10/06/20 10/06/20 10/06/20 20:17 22:29 23:57 WBC RBC Hgb Hct MCV MCH MCHC RDW Plt Count Lymph % (Auto) [place] % (Auto) Lymph # (Auto) [place] # (Auto) Baso # (Auto) Seg Neutrophils % Seg Neuts % (Manual) Lymphocytes % (Manual) Monocytes % (Manual) Nucleated RBC % Seg Neutrophils # Seg Neutrophils # Man Lymphocytes # (Manual) Monocytes # (Manual) PT INR APTT Fibrinogen D-Dimer ABG pH POC ABG pCO2 POC ABG pO2 ABG pO2 ABG HCO3 ABG Base Excess ABG Hemoglobin ABG Oxyhemoglobin ABG Sodium ABG Potassium ABG Chloride ABG Glucose VBG pH Oxyhemoglobin Carboxyhemoglobin Sodium Potassium Chloride Carbon Dioxide BUN Creatinine Glucose POC Glucose 112 H 126 H 133 H Random Insulin C-Peptide Lactic Acid Calcium Ionized Calcium Phosphorus Magnesium AST ALT Alkaline Phosphatase Lactate Dehydrogenase NT-Pro-B Natriuret Pep Total Protein Albumin Arterial Blood Glucose Arterial Blood Ionized Calcium Urine pH Urine WBC (Auto) U Epithel Cells (Auto) Vancomycin Trough Phenytoin Crossmatch 10/07/20 10/07/20 10/07/20 00:35 02:22 03:16 WBC RBC Hgb Hct MCV MCH MCHC RDW Plt Count Lymph % (Auto) [place] % (Auto) Lymph # (Auto) [place] # (Auto) Baso # (Auto) Seg Neutrophils % Seg Neuts % (Manual) Lymphocytes % (Manual) Monocytes % (Manual) Nucleated RBC % Seg Neutrophils # Seg Neutrophils # Man Lymphocytes # (Manual) Monocytes # (Manual) PT INR APTT Fibrinogen D-Dimer ABG pH POC ABG pCO2 POC ABG pO2 ABG pO2 ABG HCO3 ABG Base Excess ABG Hemoglobin 11.6 L ABG Oxyhemoglobin ABG Sodium ABG Potassium ABG Chloride ABG Glucose 156 H VBG pH Oxyhemoglobin Carboxyhemoglobin 0.3 L Sodium Potassium Chloride Carbon Dioxide BUN Creatinine Glucose POC Glucose 124 H Random Insulin C-Peptide Lactic Acid Calcium Ionized Calcium Phosphorus Magnesium 5.90 H AST ALT Alkaline Phosphatase Lactate Dehydrogenase NT-Pro-B Natriuret Pep Total Protein Albumin Arterial Blood Glucose 156 H Arterial Blood Ionized Calcium 4.2 L Urine pH Urine WBC (Auto) U Epithel Cells (Auto) Vancomycin Trough Phenytoin Crossmatch 10/07/20 10/07/20 10/07/20 04:06 05:45 07:05 WBC 19.2 H RBC 3.57 L Hgb Hct MCV MCH MCHC 35 H RDW 17.1 H Plt Count 129 L Lymph % (Auto) [place] % (Auto) Lymph # (Auto) [place] # (Auto) Baso # (Auto) Seg Neutrophils % Seg Neuts % (Manual) 94.0 H Lymphocytes % (Manual) 6.0 L Monocytes % (Manual) Nucleated RBC % Seg Neutrophils # Seg Neutrophils # Man 18.0 H Lymphocytes # (Manual) Monocytes # (Manual) PT INR APTT Fibrinogen D-Dimer ABG pH POC ABG pCO2 POC ABG pO2 ABG pO2 ABG HCO3 ABG Base Excess ABG Hemoglobin ABG Oxyhemoglobin ABG Sodium ABG Potassium ABG Chloride ABG Glucose VBG pH Oxyhemoglobin Carboxyhemoglobin Sodium Potassium Chloride Carbon Dioxide BUN Creatinine Glucose POC Glucose 135 H 149 H Random Insulin C-Peptide Lactic Acid Calcium Ionized Calcium Phosphorus Magnesium AST ALT Alkaline Phosphatase Lactate Dehydrogenase NT-Pro-B Natriuret Pep Total Protein Albumin Arterial Blood Glucose Arterial Blood Ionized Calcium Urine pH Urine WBC (Auto) U Epithel Cells (Auto) Vancomycin Trough Phenytoin Crossmatch 10/07/20 10/07/20 10/07/20 07:05 07:05 12:21 WBC RBC Hgb Hct MCV MCH MCHC RDW Plt Count Lymph % (Auto) [place] % (Auto) Lymph # (Auto) [place] # (Auto) Baso # (Auto) Seg Neutrophils % Seg Neuts % (Manual) Lymphocytes % (Manual) Monocytes % (Manual) Nucleated RBC % Seg Neutrophils # Seg Neutrophils # Man Lymphocytes # (Manual) Monocytes # (Manual) PT INR APTT Fibrinogen D-Dimer ABG pH POC ABG pCO2 POC ABG pO2 ABG pO2 ABG HCO3 ABG Base Excess ABG Hemoglobin ABG Oxyhemoglobin ABG Sodium ABG Potassium ABG Chloride ABG Glucose VBG pH Oxyhemoglobin Carboxyhemoglobin Sodium Potassium Chloride Carbon Dioxide BUN 21 H Creatinine 1.7 H Glucose 171 H POC Glucose 124 H Random Insulin C-Peptide Lactic Acid Calcium 7.4 L Ionized Calcium Phosphorus Magnesium 6.10 H AST 245 H ALT 147 H Alkaline Phosphatase Lactate Dehydrogenase NT-Pro-B Natriuret Pep Total Protein 5.3 L Albumin 2.8 L Arterial Blood Glucose Arterial Blood Ionized Calcium Urine pH Urine WBC (Auto) U Epithel Cells (Auto) Vancomycin Trough Phenytoin Crossmatch 10/07/20 10/07/20 10/07/20 19:52 21:00 21:50 WBC RBC Hgb Hct MCV MCH MCHC RDW Plt Count Lymph % (Auto) [place] % (Auto) Lymph # (Auto) [place] # (Auto) Baso # (Auto) Seg Neutrophils % Seg Neuts % (Manual) Lymphocytes % (Manual) Monocytes % (Manual) Nucleated RBC % Seg Neutrophils # Seg Neutrophils # Man Lymphocytes # (Manual) Monocytes # (Manual) PT INR APTT Fibrinogen D-Dimer ABG pH POC ABG pCO2 POC ABG pO2 ABG pO2 ABG HCO3 ABG Base Excess ABG Hemoglobin ABG Oxyhemoglobin ABG Sodium ABG Potassium ABG Chloride ABG Glucose VBG pH Oxyhemoglobin Carboxyhemoglobin Sodium Potassium Chloride Carbon Dioxide BUN Creatinine Glucose POC Glucose 193 H 138 H Random Insulin C-Peptide Lactic Acid Calcium Ionized Calcium 4.4 L Phosphorus Magnesium AST ALT Alkaline Phosphatase Lactate Dehydrogenase NT-Pro-B Natriuret Pep Total Protein Albumin Arterial Blood Glucose Arterial Blood Ionized Calcium Urine pH Urine WBC (Auto) U Epithel Cells (Auto) Vancomycin Trough Phenytoin Crossmatch 10/07/20 10/08/20 10/08/20 23:41 04:20 05:30 WBC RBC Hgb Hct MCV MCH MCHC RDW Plt Count Lymph % (Auto) [place] % (Auto) Lymph # (Auto) [place] # (Auto) Baso # (Auto) Seg Neutrophils % Seg Neuts % (Manual) Lymphocytes % (Manual) Monocytes % (Manual) Nucleated RBC % Seg Neutrophils # Seg Neutrophils # Man Lymphocytes # (Manual) Monocytes # (Manual) PT INR APTT Fibrinogen D-Dimer ABG pH 7.467 H POC ABG pCO2 POC ABG pO2 189.8 H ABG pO2 ABG HCO3 ABG Base Excess ABG Hemoglobin 10.8 L ABG Oxyhemoglobin ABG Sodium ABG Potassium ABG Chloride ABG Glucose 133 H VBG pH Oxyhemoglobin Carboxyhemoglobin Sodium Potassium Chloride Carbon Dioxide BUN Creatinine Glucose POC Glucose 118 H 114 H Random Insulin C-Peptide Lactic Acid Calcium Ionized Calcium Phosphorus Magnesium AST ALT Alkaline Phosphatase Lactate Dehydrogenase NT-Pro-B Natriuret Pep Total Protein Albumin Arterial Blood Glucose 133 H Arterial Blood Ionized Calcium 4.2 L Urine pH Urine WBC (Auto) U Epithel Cells (Auto) Vancomycin Trough Phenytoin Crossmatch 10/08/20 10/08/20 10/08/20 05:43 06:42 06:42 WBC 23.6 H RBC 3.54 L Hgb Hct MCV MCH MCHC RDW 17.8 H Plt Count Lymph % (Auto) [place] % (Auto) Lymph # (Auto) [place] # (Auto) Baso # (Auto) Seg Neutrophils % Seg Neuts % (Manual) 93.0 H Lymphocytes % (Manual) 3.0 L Monocytes % (Manual) Nucleated RBC % 1.0 H Seg Neutrophils # Seg Neutrophils # Man 21.9 H Lymphocytes # (Manual) 0.7 L Monocytes # (Manual) 0.9 H PT INR APTT Fibrinogen D-Dimer ABG pH POC ABG pCO2 POC ABG pO2 ABG pO2 ABG HCO3 ABG Base Excess ABG Hemoglobin ABG Oxyhemoglobin ABG Sodium ABG Potassium ABG Chloride ABG Glucose VBG pH Oxyhemoglobin Carboxyhemoglobin Sodium Potassium Chloride Carbon Dioxide BUN 28 H Creatinine 1.6 H Glucose 141 H POC Glucose 126 H Random Insulin C-Peptide Lactic Acid Calcium 7.6 L Ionized Calcium Phosphorus Magnesium AST 162 H ALT 103 H Alkaline Phosphatase Lactate Dehydrogenase NT-Pro-B Natriuret Pep Total Protein 5.4 L Albumin 2.7 L Arterial Blood Glucose Arterial Blood Ionized Calcium Urine pH Urine WBC (Auto) U Epithel Cells (Auto) Vancomycin Trough Phenytoin Crossmatch 10/08/20 10/08/20 10/08/20 11:20 16:05 20:14 WBC RBC Hgb Hct MCV MCH MCHC RDW Plt Count Lymph % (Auto) [place] % (Auto) Lymph # (Auto) [place] # (Auto) Baso # (Auto) Seg Neutrophils % Seg Neuts % (Manual) Lymphocytes % (Manual) Monocytes % (Manual) Nucleated RBC % Seg Neutrophils # Seg Neutrophils # Man Lymphocytes # (Manual) Monocytes # (Manual) PT INR APTT Fibrinogen D-Dimer ABG pH POC ABG pCO2 POC ABG pO2 ABG pO2 ABG HCO3 ABG Base Excess ABG Hemoglobin ABG Oxyhemoglobin ABG Sodium ABG Potassium ABG Chloride ABG Glucose VBG pH Oxyhemoglobin Carboxyhemoglobin Sodium Potassium Chloride Carbon Dioxide BUN Creatinine Glucose POC Glucose 127 H 172 H 147 H Random Insulin C-Peptide Lactic Acid Calcium Ionized Calcium Phosphorus Magnesium AST ALT Alkaline Phosphatase Lactate Dehydrogenase NT-Pro-B Natriuret Pep Total Protein Albumin Arterial Blood Glucose Arterial Blood Ionized Calcium Urine pH Urine WBC (Auto) U Epithel Cells (Auto) Vancomycin Trough Phenytoin Crossmatch 10/08/20 10/08/20 10/09/20 21:27 23:24 02:10 WBC RBC Hgb Hct MCV MCH MCHC RDW Plt Count Lymph % (Auto) [place] % (Auto) Lymph # (Auto) [place] # (Auto) Baso # (Auto) Seg Neutrophils % Seg Neuts % (Manual) Lymphocytes % (Manual) Monocytes % (Manual) Nucleated RBC % Seg Neutrophils # Seg Neutrophils # Man Lymphocytes # (Manual) Monocytes # (Manual) PT INR APTT Fibrinogen D-Dimer ABG pH POC ABG pCO2 POC ABG pO2 ABG pO2 ABG HCO3 ABG Base Excess ABG Hemoglobin ABG Oxyhemoglobin ABG Sodium ABG Potassium ABG Chloride ABG Glucose VBG pH Oxyhemoglobin Carboxyhemoglobin Sodium Potassium Chloride Carbon Dioxide BUN Creatinine Glucose POC Glucose 140 H 135 H 111 H Random Insulin C-Peptide Lactic Acid Calcium Ionized Calcium Phosphorus Magnesium AST ALT Alkaline Phosphatase Lactate Dehydrogenase NT-Pro-B Natriuret Pep Total Protein Albumin Arterial Blood Glucose Arterial Blood Ionized Calcium Urine pH Urine WBC (Auto) U Epithel Cells (Auto) Vancomycin Trough Phenytoin Crossmatch 10/09/20 10/09/20 10/09/20 03:44 04:39 05:46 WBC 19.7 H RBC 3.51 L Hgb Hct MCV MCH MCHC RDW 17.7 H Plt Count Lymph % (Auto) [place] % (Auto) Lymph # (Auto) [place] # (Auto) Baso # (Auto) Seg Neutrophils % Seg Neuts % (Manual) 86.0 H Lymphocytes % (Manual) 4.0 L Monocytes % (Manual) 9.0 H Nucleated RBC % Seg Neutrophils # Seg Neutrophils # Man 16.9 H Lymphocytes # (Manual) 0.8 L Monocytes # (Manual) 1.8 H PT INR APTT Fibrinogen D-Dimer ABG pH 7.513 H POC ABG pCO2 POC ABG pO2 33.6 L ABG pO2 ABG HCO3 ABG Base Excess ABG Hemoglobin 11.1 L ABG Oxyhemoglobin 70.2 L ABG Sodium ABG Potassium 3.2 L ABG Chloride 108.0 H ABG Glucose 108 H VBG pH Oxyhemoglobin Carboxyhemoglobin Sodium Potassium Chloride Carbon Dioxide BUN Creatinine Glucose POC Glucose 109 H Random Insulin C-Peptide Lactic Acid Calcium Ionized Calcium Phosphorus Magnesium AST ALT Alkaline Phosphatase Lactate Dehydrogenase NT-Pro-B Natriuret Pep Total Protein Albumin Arterial Blood Glucose 108 H Arterial Blood Ionized Calcium 4.3 L Urine pH Urine WBC (Auto) U Epithel Cells (Auto) Vancomycin Trough Phenytoin Crossmatch 10/09/20 10/10/20 10/10/20 05:46 04:00 04:00 WBC 18.4 H RBC Hgb Hct MCV MCH MCHC RDW 17.5 H Plt Count Lymph % (Auto) 9.8 L [place] % (Auto) 8.8 H Lymph # (Auto) [place] # (Auto) 1.6 H Baso # (Auto) Seg Neutrophils % 80.0 H Seg Neuts % (Manual) Lymphocytes % (Manual) Monocytes % (Manual) Nucleated RBC % Seg Neutrophils # 14.7 H Seg Neutrophils # Man Lymphocytes # (Manual) Monocytes # (Manual) PT INR APTT Fibrinogen D-Dimer ABG pH POC ABG pCO2 POC ABG pO2 ABG pO2 ABG HCO3 ABG Base Excess ABG Hemoglobin ABG Oxyhemoglobin ABG Sodium ABG Potassium ABG Chloride ABG Glucose VBG pH Oxyhemoglobin Carboxyhemoglobin Sodium 146 H Potassium 3.2 L 2.9 L* Chloride 108.9 H 112.6 H Carbon Dioxide BUN 34 H 28 H Creatinine 1.4 H 1.3 H Glucose 109 H 101 H POC Glucose Random Insulin C-Peptide Lactic Acid Calcium 7.6 L 7.8 L Ionized Calcium Phosphorus Magnesium AST 137 H 122 H ALT 99 H 81 H Alkaline Phosphatase Lactate Dehydrogenase NT-Pro-B Natriuret Pep Total Protein 5.1 L 5.2 L Albumin 2.6 L 2.7 L Arterial Blood Glucose Arterial Blood Ionized Calcium Urine pH Urine WBC (Auto) U Epithel Cells (Auto) Vancomycin Trough Phenytoin Crossmatch 10/10/20 10/10/20 10/11/20 04:42 09:50 00:44 WBC RBC Hgb Hct MCV MCH MCHC RDW Plt Count Lymph % (Auto) [place] % (Auto) Lymph # (Auto) [place] # (Auto) Baso # (Auto) Seg Neutrophils % Seg Neuts % (Manual) Lymphocytes % (Manual) Monocytes % (Manual) Nucleated RBC % Seg Neutrophils # Seg Neutrophils # Man Lymphocytes # (Manual) Monocytes # (Manual) PT INR APTT Fibrinogen D-Dimer ABG pH 7.534 H POC ABG pCO2 POC ABG pO2 ABG pO2 95.2 H ABG HCO3 ABG Base Excess ABG Hemoglobin 11.3 L ABG Oxyhemoglobin ABG Sodium ABG Potassium ABG Chloride ABG Glucose VBG pH Oxyhemoglobin Carboxyhemoglobin Sodium Potassium Chloride Carbon Dioxide BUN Creatinine Glucose POC Glucose 109 H 106 H Random Insulin C-Peptide Lactic Acid Calcium Ionized Calcium Phosphorus Magnesium AST ALT Alkaline Phosphatase Lactate Dehydrogenase NT-Pro-B Natriuret Pep Total Protein Albumin Arterial Blood Glucose Arterial Blood Ionized Calcium Urine pH Urine WBC (Auto) U Epithel Cells (Auto) Vancomycin Trough Phenytoin Crossmatch 10/11/20 10/11/20 10/11/20 04:00 04:00 06:08 WBC 27.0 H RBC Hgb Hct MCV MCH MCHC RDW 17.7 H Plt Count Lymph % (Auto) 6.3 L [place] % (Auto) Lymph # (Auto) [place] # (Auto) 1.5 H Baso # (Auto) Seg Neutrophils % 87.1 H Seg Neuts % (Manual) Lymphocytes % (Manual) Monocytes % (Manual) Nucleated RBC % Seg Neutrophils # 23.5 H Seg Neutrophils # Man Lymphocytes # (Manual) Monocytes # (Manual) PT INR APTT Fibrinogen D-Dimer ABG pH POC ABG pCO2 POC ABG pO2 ABG pO2 ABG HCO3 ABG Base Excess ABG Hemoglobin ABG Oxyhemoglobin ABG Sodium ABG Potassium ABG Chloride ABG Glucose VBG pH Oxyhemoglobin Carboxyhemoglobin Sodium Potassium 3.2 L Chloride 110.4 H Carbon Dioxide 19 L BUN 22 H Creatinine Glucose 116 H POC Glucose 107 H Random Insulin C-Peptide Lactic Acid Calcium 7.7 L Ionized Calcium Phosphorus Magnesium 1.60 L AST ALT Alkaline Phosphatase Lactate Dehydrogenase NT-Pro-B Natriuret Pep Total Protein Albumin Arterial Blood Glucose Arterial Blood Ionized Calcium Urine pH Urine WBC (Auto) U Epithel Cells (Auto) Vancomycin Trough Phenytoin Crossmatch 10/11/20 10/11/20 10/12/20 11:41 13:26 03:52 WBC RBC Hgb Hct MCV MCH MCHC RDW Plt Count Lymph % (Auto) [place] % (Auto) Lymph # (Auto) [place] # (Auto) Baso # (Auto) Seg Neutrophils % Seg Neuts % (Manual) Lymphocytes % (Manual) Monocytes % (Manual) Nucleated RBC % Seg Neutrophils # Seg Neutrophils # Man Lymphocytes # (Manual) Monocytes # (Manual) PT INR APTT Fibrinogen D-Dimer ABG pH POC ABG pCO2 POC ABG pO2 ABG pO2 ABG HCO3 ABG Base Excess ABG Hemoglobin ABG Oxyhemoglobin ABG Sodium ABG Potassium ABG Chloride ABG Glucose VBG pH Oxyhemoglobin Carboxyhemoglobin Sodium Potassium Chloride Carbon Dioxide BUN Creatinine Glucose POC Glucose 116 H 114 H Random Insulin C-Peptide Lactic Acid Calcium Ionized Calcium Phosphorus Magnesium AST ALT Alkaline Phosphatase Lactate Dehydrogenase NT-Pro-B Natriuret Pep Total Protein Albumin Arterial Blood Glucose Arterial Blood Ionized Calcium Urine pH Urine WBC (Auto) 24.0 H U Epithel Cells (Auto) Vancomycin Trough Phenytoin Crossmatch 10/12/20 10/12/20 10/12/20 04:24 14:47 21:33 WBC RBC Hgb Hct MCV MCH MCHC RDW Plt Count Lymph % (Auto) [place] % (Auto) Lymph # (Auto) [place] # (Auto) Baso # (Auto) Seg Neutrophils % Seg Neuts % (Manual) Lymphocytes % (Manual) Monocytes % (Manual) Nucleated RBC % Seg Neutrophils # Seg Neutrophils # Man Lymphocytes # (Manual) Monocytes # (Manual) PT INR APTT Fibrinogen D-Dimer ABG pH POC ABG pCO2 POC ABG pO2 ABG pO2 ABG HCO3 ABG Base Excess ABG Hemoglobin ABG Oxyhemoglobin ABG Sodium ABG Potassium ABG Chloride ABG Glucose VBG pH Oxyhemoglobin Carboxyhemoglobin Sodium Potassium Chloride 109.9 H Carbon Dioxide 13 L BUN 18 H Creatinine Glucose 119 H POC Glucose 107 H Random Insulin C-Peptide Lactic Acid Calcium 7.6 L Ionized Calcium Phosphorus Magnesium 1.60 L AST ALT Alkaline Phosphatase Lactate Dehydrogenase NT-Pro-B Natriuret Pep Total Protein Albumin Arterial Blood Glucose Arterial Blood Ionized Calcium Urine pH Urine WBC (Auto) U Epithel Cells (Auto) Vancomycin Trough Phenytoin Crossmatch 10/12/20 10/12/20 10/13/20 Unknown Unknown 07:00 WBC 24.3 H RBC 3.38 L Hgb 9.8 L Hct MCV MCH MCHC RDW 18.7 H Plt Count Lymph % (Auto) [place] % (Auto) Lymph # (Auto) [place] # (Auto) Baso # (Auto) Seg Neutrophils % Seg Neuts % (Manual) 93.5 H Lymphocytes % (Manual) 4.5 L Monocytes % (Manual) Nucleated RBC % Seg Neutrophils # Seg Neutrophils # Man 22.7 H Lymphocytes # (Manual) 1.1 L Monocytes # (Manual) PT INR APTT Fibrinogen D-Dimer ABG pH POC ABG pCO2 POC ABG pO2 ABG pO2 ABG HCO3 ABG Base Excess ABG Hemoglobin ABG Oxyhemoglobin ABG Sodium ABG Potassium ABG Chloride ABG Glucose VBG pH Oxyhemoglobin Carboxyhemoglobin Sodium 135 L D Potassium 3.1 L Chloride Carbon Dioxide 17 L BUN Creatinine Glucose 510 H* POC Glucose Random Insulin C-Peptide Lactic Acid Calcium 7.2 L Ionized Calcium Phosphorus Magnesium AST ALT Alkaline Phosphatase Lactate Dehydrogenase NT-Pro-B Natriuret Pep Total Protein Albumin Arterial Blood Glucose Arterial Blood Ionized Calcium Urine pH Urine WBC (Auto) U Epithel Cells (Auto) Vancomycin Trough Phenytoin 5.7 L Crossmatch 10/13/20 10/13/20 10/13/20 07:00 07:00 07:18 WBC 23.6 H RBC 3.26 L Hgb 9.4 L Hct 28.7 L MCV MCH MCHC RDW 18.3 H Plt Count Lymph % (Auto) [place] % (Auto) Lymph # (Auto) [place] # (Auto) Baso # (Auto) Seg Neutrophils % Seg Neuts % (Manual) Lymphocytes % (Manual) Monocytes % (Manual) Nucleated RBC % Seg Neutrophils # Seg Neutrophils # Man Lymphocytes # (Manual) Monocytes # (Manual) PT INR APTT Fibrinogen D-Dimer ABG pH 7.473 H POC ABG pCO2 20.7 L POC ABG pO2 137.9 H ABG pO2 ABG HCO3 ABG Base Excess ABG Hemoglobin 11.2 L ABG Oxyhemoglobin 98.3 H ABG Sodium 135.9 L ABG Potassium ABG Chloride 111.0 H ABG Glucose 109 H VBG pH Oxyhemoglobin Carboxyhemoglobin 0.3 L Sodium 135 L Potassium 3.5 L Chloride 109.1 H Carbon Dioxide 18 L BUN Creatinine Glucose POC Glucose Random Insulin C-Peptide Lactic Acid Calcium 7.3 L Ionized Calcium Phosphorus Magnesium 1.60 L AST ALT Alkaline Phosphatase Lactate Dehydrogenase NT-Pro-B Natriuret Pep Total Protein Albumin Arterial Blood Glucose 109 H Arterial Blood Ionized Calcium Urine pH Urine WBC (Auto) U Epithel Cells (Auto) Vancomycin Trough Phenytoin Crossmatch 10/14/20 10/14/20 10/15/20 04:00 04:00 05:50 WBC 28.6 H 23.2 H RBC 3.61 L 3.43 L Hgb 9.9 L Hct 30.0 L MCV MCH MCHC RDW 18.3 H 18.2 H Plt Count Lymph % (Auto) [place] % (Auto) Lymph # (Auto) [place] # (Auto) Baso # (Auto) Seg Neutrophils % Seg Neuts % (Manual) 88.0 H 90.0 H Lymphocytes % (Manual) 5.0 L 4.0 L Monocytes % (Manual) Nucleated RBC % Seg Neutrophils # Seg Neutrophils # Man 25.2 H 20.9 H Lymphocytes # (Manual) 0.9 L Monocytes # (Manual) 1.4 H 0.9 H PT INR APTT Fibrinogen D-Dimer ABG pH POC ABG pCO2 POC ABG pO2 ABG pO2 ABG HCO3 ABG Base Excess ABG Hemoglobin ABG Oxyhemoglobin ABG Sodium ABG Potassium ABG Chloride ABG Glucose VBG pH Oxyhemoglobin Carboxyhemoglobin Sodium Potassium Chloride 109.9 H Carbon Dioxide 17 L BUN Creatinine Glucose POC Glucose Random Insulin C-Peptide Lactic Acid Calcium Ionized Calcium Phosphorus Magnesium AST ALT Alkaline Phosphatase Lactate Dehydrogenase NT-Pro-B Natriuret Pep Total Protein Albumin Arterial Blood Glucose Arterial Blood Ionized Calcium Urine pH Urine WBC (Auto) U Epithel Cells (Auto) Vancomycin Trough Phenytoin Crossmatch 10/15/20 10/16/20 10/17/20 05:50 11:57 04:57 WBC 15.2 H RBC 3.43 L Hgb Hct MCV MCH MCHC RDW 18.1 H Plt Count Lymph % (Auto) [place] % (Auto) Lymph # (Auto) [place] # (Auto) Baso # (Auto) Seg Neutrophils % Seg Neuts % (Manual) Lymphocytes % (Manual) Monocytes % (Manual) Nucleated RBC % Seg Neutrophils # Seg Neutrophils # Man Lymphocytes # (Manual) Monocytes # (Manual) PT INR APTT Fibrinogen D-Dimer ABG pH POC ABG pCO2 POC ABG pO2 ABG pO2 ABG HCO3 ABG Base Excess ABG Hemoglobin ABG Oxyhemoglobin ABG Sodium ABG Potassium ABG Chloride ABG Glucose VBG pH Oxyhemoglobin Carboxyhemoglobin Sodium Potassium Chloride 110.3 H Carbon Dioxide 18 L BUN Creatinine Glucose 105 H POC Glucose 111 H Random Insulin C-Peptide Lactic Acid Calcium 8.3 L Ionized Calcium Phosphorus Magnesium AST ALT Alkaline Phosphatase Lactate Dehydrogenase NT-Pro-B Natriuret Pep Total Protein Albumin Arterial Blood Glucose Arterial Blood Ionized Calcium Urine pH Urine WBC (Auto) U Epithel Cells (Auto) Vancomycin Trough Phenytoin Crossmatch 10/17/20 10/17/20 10/18/20 05:25 21:16 01:31 WBC RBC Hgb Hct MCV MCH MCHC RDW Plt Count Lymph % (Auto) [place] % (Auto) Lymph # (Auto) [place] # (Auto) Baso # (Auto) Seg Neutrophils % Seg Neuts % (Manual) Lymphocytes % (Manual) Monocytes % (Manual) Nucleated RBC % Seg Neutrophils # Seg Neutrophils # Man Lymphocytes # (Manual) Monocytes # (Manual) PT INR APTT Fibrinogen D-Dimer ABG pH POC ABG pCO2 POC ABG pO2 ABG pO2 ABG HCO3 ABG Base Excess ABG Hemoglobin ABG Oxyhemoglobin ABG Sodium ABG Potassium ABG Chloride ABG Glucose VBG pH Oxyhemoglobin Carboxyhemoglobin Sodium Potassium Chloride Carbon Dioxide BUN Creatinine Glucose POC Glucose 107 H 106 H 119 H Random Insulin C-Peptide Lactic Acid Calcium Ionized Calcium Phosphorus Magnesium AST ALT Alkaline Phosphatase Lactate Dehydrogenase NT-Pro-B Natriuret Pep Total Protein Albumin Arterial Blood Glucose Arterial Blood Ionized Calcium Urine pH Urine WBC (Auto) U Epithel Cells (Auto) Vancomycin Trough Phenytoin Crossmatch 10/18/20 10/18/20 10/19/20 05:45 11:23 01:14 WBC RBC Hgb Hct MCV MCH MCHC RDW Plt Count Lymph % (Auto) [place] % (Auto) Lymph # (Auto) [place] # (Auto) Baso # (Auto) Seg Neutrophils % Seg Neuts % (Manual) Lymphocytes % (Manual) Monocytes % (Manual) Nucleated RBC % Seg Neutrophils # Seg Neutrophils # Man Lymphocytes # (Manual) Monocytes # (Manual) PT INR APTT Fibrinogen D-Dimer ABG pH POC ABG pCO2 POC ABG pO2 ABG pO2 ABG HCO3 ABG Base Excess ABG Hemoglobin ABG Oxyhemoglobin ABG Sodium ABG Potassium ABG Chloride ABG Glucose VBG pH Oxyhemoglobin Carboxyhemoglobin Sodium Potassium Chloride Carbon Dioxide BUN Creatinine Glucose POC Glucose 106 H 115 H 108 H Random Insulin C-Peptide Lactic Acid Calcium Ionized Calcium Phosphorus Magnesium AST ALT Alkaline Phosphatase Lactate Dehydrogenase NT-Pro-B Natriuret Pep Total Protein Albumin Arterial Blood Glucose Arterial Blood Ionized Calcium Urine pH Urine WBC (Auto) U Epithel Cells (Auto) Vancomycin Trough Phenytoin Crossmatch 10/19/20 10/20/20 10/20/20 09:57 05:40 07:59 WBC RBC Hgb Hct MCV MCH MCHC RDW Plt Count Lymph % (Auto) [place] % (Auto) Lymph # (Auto) [place] # (Auto) Baso # (Auto) Seg Neutrophils % Seg Neuts % (Manual) Lymphocytes % (Manual) Monocytes % (Manual) Nucleated RBC % Seg Neutrophils # Seg Neutrophils # Man Lymphocytes # (Manual) Monocytes # (Manual) PT INR APTT Fibrinogen D-Dimer ABG pH POC ABG pCO2 POC ABG pO2 ABG pO2 ABG HCO3 ABG Base Excess ABG Hemoglobin ABG Oxyhemoglobin ABG Sodium ABG Potassium ABG Chloride ABG Glucose VBG pH Oxyhemoglobin Carboxyhemoglobin Sodium Potassium Chloride Carbon Dioxide BUN Creatinine Glucose 106 H POC Glucose 122 H 109 H Random Insulin C-Peptide Lactic Acid Calcium Ionized Calcium Phosphorus Magnesium AST ALT Alkaline Phosphatase Lactate Dehydrogenase NT-Pro-B Natriuret Pep Total Protein Albumin Arterial Blood Glucose Arterial Blood Ionized Calcium Urine pH Urine WBC (Auto) U Epithel Cells (Auto) Vancomycin Trough Phenytoin Crossmatch 10/20/20 10/20/20 10/21/20 16:52 16:52 13:54 WBC 18.8 H 17.0 H RBC Hgb Hct MCV MCH MCHC RDW 17.7 H 17.8 H Plt Count 547 H 544 H Lymph % (Auto) 11.2 L [place] % (Auto) 8.1 H Lymph # (Auto) [place] # (Auto) 1.5 H Baso # (Auto) 0.2 H Seg Neutrophils % 78.8 H Seg Neuts % (Manual) Lymphocytes % (Manual) Monocytes % (Manual) Nucleated RBC % Seg Neutrophils # 14.8 H Seg Neutrophils # Man Lymphocytes # (Manual) Monocytes # (Manual) PT INR APTT Fibrinogen D-Dimer ABG pH POC ABG pCO2 POC ABG pO2 ABG pO2 ABG HCO3 ABG Base Excess ABG Hemoglobin ABG Oxyhemoglobin ABG Sodium ABG Potassium ABG Chloride ABG Glucose VBG pH Oxyhemoglobin Carboxyhemoglobin Sodium Potassium Chloride Carbon Dioxide BUN Creatinine Glucose POC Glucose Random Insulin C-Peptide Lactic Acid Calcium Ionized Calcium Phosphorus Magnesium AST ALT Alkaline Phosphatase Lactate Dehydrogenase NT-Pro-B Natriuret Pep Total Protein Albumin Arterial Blood Glucose Arterial Blood Ionized Calcium Urine pH Urine WBC (Auto) U Epithel Cells (Auto) Vancomycin Trough 34.5 H Phenytoin Crossmatch 10/21/20 10/22/20 10/23/20 13:54 07:26 05:34 WBC 18.7 H 13.0 H RBC 3.64 L 3.50 L Hgb Hct 30.0 L MCV MCH MCHC 35 H RDW 17.7 H 17.6 H Plt Count 502 H 503 H Lymph % (Auto) [place] % (Auto) Lymph # (Auto) [place] # (Auto) Baso # (Auto) Seg Neutrophils % Seg Neuts % (Manual) Lymphocytes % (Manual) Monocytes % (Manual) Nucleated RBC % Seg Neutrophils # Seg Neutrophils # Man Lymphocytes # (Manual) Monocytes # (Manual) PT INR APTT Fibrinogen D-Dimer ABG pH POC ABG pCO2 POC ABG pO2 ABG pO2 ABG HCO3 ABG Base Excess ABG Hemoglobin ABG Oxyhemoglobin ABG Sodium ABG Potassium ABG Chloride ABG Glucose VBG pH Oxyhemoglobin Carboxyhemoglobin Sodium 136 L Potassium Chloride Carbon Dioxide BUN Creatinine Glucose 120 H POC Glucose Random Insulin C-Peptide Lactic Acid Calcium Ionized Calcium Phosphorus Magnesium AST ALT Alkaline Phosphatase Lactate Dehydrogenase NT-Pro-B Natriuret Pep Total Protein Albumin Arterial Blood Glucose Arterial Blood Ionized Calcium Urine pH Urine WBC (Auto) U Epithel Cells (Auto) Vancomycin Trough Phenytoin Crossmatch 10/23/20 10/26/20 10/27/20 05:34 10:30 07:53 WBC 13.6 H RBC 3.38 L Hgb 10.0 L Hct 28.8 L MCV MCH MCHC 35 H RDW 17.6 H Plt Count Lymph % (Auto) [place] % (Auto) Lymph # (Auto) [place] # (Auto) Baso # (Auto) Seg Neutrophils % Seg Neuts % (Manual) Lymphocytes % (Manual) Monocytes % (Manual) Nucleated RBC % Seg Neutrophils # Seg Neutrophils # Man Lymphocytes # (Manual) Monocytes # (Manual) PT INR APTT Fibrinogen D-Dimer ABG pH 7.459 H POC ABG pCO2 POC ABG pO2 ABG pO2 112.2 H ABG HCO3 ABG Base Excess ABG Hemoglobin ABG Oxyhemoglobin ABG Sodium ABG Potassium ABG Chloride ABG Glucose VBG pH Oxyhemoglobin Carboxyhemoglobin Sodium 135 L Potassium Chloride Carbon Dioxide BUN Creatinine Glucose 105 H POC Glucose Random Insulin C-Peptide Lactic Acid Calcium Ionized Calcium Phosphorus Magnesium AST ALT Alkaline Phosphatase Lactate Dehydrogenase NT-Pro-B Natriuret Pep Total Protein Albumin Arterial Blood Glucose Arterial Blood Ionized Calcium Urine pH Urine WBC (Auto) U Epithel Cells (Auto) Vancomycin Trough Phenytoin Crossmatch 10/27/20 10/27/20 10/28/20 07:53 11:31 05:19 WBC RBC Hgb Hct MCV MCH MCHC RDW Plt Count Lymph % (Auto) [place] % (Auto) Lymph # (Auto) [place] # (Auto) Baso # (Auto) Seg Neutrophils % Seg Neuts % (Manual) Lymphocytes % (Manual) Monocytes % (Manual) Nucleated RBC % Seg Neutrophils # Seg Neutrophils # Man Lymphocytes # (Manual) Monocytes # (Manual) PT INR APTT Fibrinogen D-Dimer ABG pH POC ABG pCO2 POC ABG pO2 ABG pO2 ABG HCO3 ABG Base Excess ABG Hemoglobin ABG Oxyhemoglobin ABG Sodium ABG Potassium ABG Chloride ABG Glucose VBG pH Oxyhemoglobin Carboxyhemoglobin Sodium Potassium Chloride Carbon Dioxide BUN 20 H Creatinine Glucose 112 H POC Glucose 113 H 112 H Random Insulin C-Peptide Lactic Acid Calcium Ionized Calcium Phosphorus Magnesium AST 83 H ALT Alkaline Phosphatase Lactate Dehydrogenase NT-Pro-B Natriuret Pep Total Protein Albumin 3.8 L Arterial Blood Glucose Arterial Blood Ionized Calcium Urine pH Urine WBC (Auto) U Epithel Cells (Auto) Vancomycin Trough Phenytoin Crossmatch 10/29/20 10/29/20 10/29/20 07:56 07:56 11:37 WBC 13.6 H RBC Hgb Hct MCV MCH MCHC RDW 17.0 H Plt Count Lymph % (Auto) [place] % (Auto) Lymph # (Auto) [place] # (Auto) Baso # (Auto) Seg Neutrophils % Seg Neuts % (Manual) 80.0 H Lymphocytes % (Manual) Monocytes % (Manual) Nucleated RBC % Seg Neutrophils # Seg Neutrophils # Man 10.9 H Lymphocytes # (Manual) Monocytes # (Manual) PT INR APTT Fibrinogen D-Dimer ABG pH POC ABG pCO2 POC ABG pO2 ABG pO2 ABG HCO3 ABG Base Excess ABG Hemoglobin ABG Oxyhemoglobin ABG Sodium ABG Potassium ABG Chloride ABG Glucose VBG pH Oxyhemoglobin Carboxyhemoglobin Sodium Potassium Chloride Carbon Dioxide BUN Creatinine Glucose POC Glucose 108 H Random Insulin C-Peptide Lactic Acid Calcium Ionized Calcium Phosphorus 4.70 H Magnesium AST ALT Alkaline Phosphatase Lactate Dehydrogenase NT-Pro-B Natriuret Pep Total Protein Albumin Arterial Blood Glucose Arterial Blood Ionized Calcium Urine pH Urine WBC (Auto) U Epithel Cells (Auto) Vancomycin Trough Phenytoin Crossmatch 10/29/20 10/30/20 10/30/20 13:32 12:11 17:19 WBC RBC Hgb Hct MCV MCH MCHC RDW Plt Count Lymph % (Auto) [place] % (Auto) Lymph # (Auto) [place] # (Auto) Baso # (Auto) Seg Neutrophils % Seg Neuts % (Manual) Lymphocytes % (Manual) Monocytes % (Manual) Nucleated RBC % Seg Neutrophils # Seg Neutrophils # Man Lymphocytes # (Manual) Monocytes # (Manual) PT INR APTT Fibrinogen D-Dimer ABG pH POC ABG pCO2 POC ABG pO2 ABG pO2 ABG HCO3 ABG Base Excess ABG Hemoglobin ABG Oxyhemoglobin ABG Sodium ABG Potassium ABG Chloride ABG Glucose VBG pH Oxyhemoglobin Carboxyhemoglobin Sodium Potassium Chloride Carbon Dioxide BUN Creatinine Glucose POC Glucose 108 H 106 H 107 H Random Insulin C-Peptide Lactic Acid Calcium Ionized Calcium Phosphorus Magnesium AST ALT Alkaline Phosphatase Lactate Dehydrogenase NT-Pro-B Natriuret Pep Total Protein Albumin Arterial Blood Glucose Arterial Blood Ionized Calcium Urine pH Urine WBC (Auto) U Epithel Cells (Auto) Vancomycin Trough Phenytoin Crossmatch 10/31/20 10/31/20 11/01/20 03:20 05:43 04:55 WBC RBC Hgb Hct MCV MCH MCHC RDW Plt Count Lymph % (Auto) [place] % (Auto) Lymph # (Auto) [place] # (Auto) Baso # (Auto) Seg Neutrophils % Seg Neuts % (Manual) Lymphocytes % (Manual) Monocytes % (Manual) Nucleated RBC % Seg Neutrophils # Seg Neutrophils # Man Lymphocytes # (Manual) Monocytes # (Manual) PT INR APTT Fibrinogen D-Dimer ABG pH POC ABG pCO2 POC ABG pO2 ABG pO2 ABG HCO3 ABG Base Excess ABG Hemoglobin ABG Oxyhemoglobin ABG Sodium ABG Potassium ABG Chloride ABG Glucose VBG pH Oxyhemoglobin Carboxyhemoglobin Sodium Potassium Chloride Carbon Dioxide BUN Creatinine Glucose POC Glucose 108 H 115 H 108 H Random Insulin C-Peptide Lactic Acid Calcium Ionized Calcium Phosphorus Magnesium AST ALT Alkaline Phosphatase Lactate Dehydrogenase NT-Pro-B Natriuret Pep Total Protein Albumin Arterial Blood Glucose Arterial Blood Ionized Calcium Urine pH Urine WBC (Auto) U Epithel Cells (Auto) Vancomycin Trough Phenytoin Crossmatch 11/01/20 11/01/20 11/01/20 05:01 16:47 21:36 WBC RBC Hgb Hct MCV MCH MCHC RDW Plt Count Lymph % (Auto) [place] % (Auto) Lymph # (Auto) [place] # (Auto) Baso # (Auto) Seg Neutrophils % Seg Neuts % (Manual) Lymphocytes % (Manual) Monocytes % (Manual) Nucleated RBC % Seg Neutrophils # Seg Neutrophils # Man Lymphocytes # (Manual) Monocytes # (Manual) PT INR APTT Fibrinogen D-Dimer ABG pH POC ABG pCO2 POC ABG pO2 ABG pO2 ABG HCO3 ABG Base Excess ABG Hemoglobin ABG Oxyhemoglobin ABG Sodium ABG Potassium ABG Chloride ABG Glucose VBG pH Oxyhemoglobin Carboxyhemoglobin Sodium 135 L Potassium Chloride Carbon Dioxide BUN Creatinine Glucose POC Glucose 116 H 112 H Random Insulin C-Peptide Lactic Acid Calcium Ionized Calcium Phosphorus Magnesium AST 93 H ALT Alkaline Phosphatase 132 H Lactate Dehydrogenase NT-Pro-B Natriuret Pep Total Protein Albumin 3.6 L Arterial Blood Glucose Arterial Blood Ionized Calcium Urine pH Urine WBC (Auto) U Epithel Cells (Auto) Vancomycin Trough Phenytoin Crossmatch 11/02/20 11/02/20 11/02/20 17:45 19:19 19:19 WBC RBC Hgb Hct MCV MCH MCHC RDW Plt Count Lymph % (Auto) [place] % (Auto) Lymph # (Auto) [place] # (Auto) Baso # (Auto) Seg Neutrophils % Seg Neuts % (Manual) Lymphocytes % (Manual) Monocytes % (Manual) Nucleated RBC % Seg Neutrophils # Seg Neutrophils # Man Lymphocytes # (Manual) Monocytes # (Manual) PT INR APTT Fibrinogen D-Dimer ABG pH POC ABG pCO2 POC ABG pO2 ABG pO2 ABG HCO3 ABG Base Excess ABG Hemoglobin ABG Oxyhemoglobin ABG Sodium ABG Potassium ABG Chloride ABG Glucose VBG pH Oxyhemoglobin Carboxyhemoglobin Sodium Potassium Chloride Carbon Dioxide BUN Creatinine Glucose POC Glucose 107 H Random Insulin 43.2 H C-Peptide 6.23 H Lactic Acid Calcium Ionized Calcium Phosphorus Magnesium AST ALT Alkaline Phosphatase Lactate Dehydrogenase NT-Pro-B Natriuret Pep Total Protein Albumin Arterial Blood Glucose Arterial Blood Ionized Calcium Urine pH Urine WBC (Auto) U Epithel Cells (Auto) Vancomycin Trough Phenytoin Crossmatch 11/03/20 11/04/20 11/04/20 21:49 05:00 05:00 WBC 13.8 H RBC Hgb Hct MCV MCH MCHC RDW 16.6 H Plt Count Lymph % (Auto) 11.8 L [place] % (Auto) 11.0 H Lymph # (Auto) [place] # (Auto) 1.5 H Baso # (Auto) Seg Neutrophils % 75.1 H Seg Neuts % (Manual) Lymphocytes % (Manual) Monocytes % (Manual) Nucleated RBC % Seg Neutrophils # 10.4 H Seg Neutrophils # Man Lymphocytes # (Manual) Monocytes # (Manual) PT INR APTT Fibrinogen D-Dimer ABG pH POC ABG pCO2 POC ABG pO2 ABG pO2 ABG HCO3 ABG Base Excess ABG Hemoglobin ABG Oxyhemoglobin ABG Sodium ABG Potassium ABG Chloride ABG Glucose VBG pH Oxyhemoglobin Carboxyhemoglobin Sodium Potassium Chloride Carbon Dioxide BUN Creatinine Glucose 112 H POC Glucose 109 H Random Insulin C-Peptide Lactic Acid Calcium Ionized Calcium Phosphorus Magnesium AST 90 H ALT Alkaline Phosphatase Lactate Dehydrogenase NT-Pro-B Natriuret Pep Total Protein Albumin 3.8 L Arterial Blood Glucose Arterial Blood Ionized Calcium Urine pH Urine WBC (Auto) U Epithel Cells (Auto) Vancomycin Trough Phenytoin Crossmatch 11/04/20 11/04/20 11/05/20 06:03 23:47 07:47 WBC RBC Hgb Hct MCV MCH MCHC RDW Plt Count Lymph % (Auto) [place] % (Auto) Lymph # (Auto) [place] # (Auto) Baso # (Auto) Seg Neutrophils % Seg Neuts % (Manual) Lymphocytes % (Manual) Monocytes % (Manual) Nucleated RBC % Seg Neutrophils # Seg Neutrophils # Man Lymphocytes # (Manual) Monocytes # (Manual) PT INR APTT Fibrinogen D-Dimer ABG pH POC ABG pCO2 POC ABG pO2 ABG pO2 ABG HCO3 ABG Base Excess ABG Hemoglobin ABG Oxyhemoglobin ABG Sodium ABG Potassium ABG Chloride ABG Glucose VBG pH Oxyhemoglobin Carboxyhemoglobin Sodium Potassium Chloride Carbon Dioxide BUN Creatinine Glucose POC Glucose 107 H 121 H 111 H Random Insulin C-Peptide Lactic Acid Calcium Ionized Calcium Phosphorus Magnesium AST ALT Alkaline Phosphatase Lactate Dehydrogenase NT-Pro-B Natriuret Pep Total Protein Albumin Arterial Blood Glucose Arterial Blood Ionized Calcium Urine pH Urine WBC (Auto) U Epithel Cells (Auto) Vancomycin Trough Phenytoin Crossmatch 11/05/20 11/06/20 11/06/20 23:24 17:04 23:36 WBC RBC Hgb Hct MCV MCH MCHC RDW Plt Count Lymph % (Auto) [place] % (Auto) Lymph # (Auto) [place] # (Auto) Baso # (Auto) Seg Neutrophils % Seg Neuts % (Manual) Lymphocytes % (Manual) Monocytes % (Manual) Nucleated RBC % Seg Neutrophils # Seg Neutrophils # Man Lymphocytes # (Manual) Monocytes # (Manual) PT INR APTT Fibrinogen D-Dimer ABG pH POC ABG pCO2 POC ABG pO2 ABG pO2 ABG HCO3 ABG Base Excess ABG Hemoglobin ABG Oxyhemoglobin ABG Sodium ABG Potassium ABG Chloride ABG Glucose VBG pH Oxyhemoglobin Carboxyhemoglobin Sodium Potassium Chloride Carbon Dioxide BUN Creatinine Glucose POC Glucose 111 H 112 H 108 H Random Insulin C-Peptide Lactic Acid Calcium Ionized Calcium Phosphorus Magnesium AST ALT Alkaline Phosphatase Lactate Dehydrogenase NT-Pro-B Natriuret Pep Total Protein Albumin Arterial Blood Glucose Arterial Blood Ionized Calcium Urine pH Urine WBC (Auto) U Epithel Cells (Auto) Vancomycin Trough Phenytoin Crossmatch 11/07/20 11/07/20 11/07/20 03:33 04:44 04:44 WBC RBC Hgb Hct MCV MCH MCHC RDW 16.6 H Plt Count Lymph % (Auto) [place] % (Auto) 13.1 H Lymph # (Auto) [place] # (Auto) 1.3 H Baso # (Auto) Seg Neutrophils % Seg Neuts % (Manual) Lymphocytes % (Manual) Monocytes % (Manual) Nucleated RBC % Seg Neutrophils # Seg Neutrophils # Man Lymphocytes # (Manual) Monocytes # (Manual) PT INR APTT Fibrinogen D-Dimer ABG pH POC ABG pCO2 POC ABG pO2 ABG pO2 ABG HCO3 ABG Base Excess ABG Hemoglobin ABG Oxyhemoglobin ABG Sodium ABG Potassium ABG Chloride ABG Glucose VBG pH Oxyhemoglobin Carboxyhemoglobin Sodium Potassium Chloride Carbon Dioxide BUN Creatinine Glucose 103 H POC Glucose 109 H Random Insulin C-Peptide Lactic Acid Calcium Ionized Calcium Phosphorus 5.30 H Magnesium AST ALT Alkaline Phosphatase Lactate Dehydrogenase NT-Pro-B Natriuret Pep Total Protein Albumin Arterial Blood Glucose Arterial Blood Ionized Calcium Urine pH Urine WBC (Auto) U Epithel Cells (Auto) Vancomycin Trough Phenytoin Crossmatch 11/07/20 11/07/20 11/08/20 15:58 23:46 07:30 WBC RBC Hgb Hct MCV MCH MCHC RDW Plt Count Lymph % (Auto) [place] % (Auto) Lymph # (Auto) [place] # (Auto) Baso # (Auto) Seg Neutrophils % Seg Neuts % (Manual) Lymphocytes % (Manual) Monocytes % (Manual) Nucleated RBC % Seg Neutrophils # Seg Neutrophils # Man Lymphocytes # (Manual) Monocytes # (Manual) PT INR APTT Fibrinogen D-Dimer ABG pH POC ABG pCO2 POC ABG pO2 ABG pO2 ABG HCO3 ABG Base Excess ABG Hemoglobin ABG Oxyhemoglobin ABG Sodium ABG Potassium ABG Chloride ABG Glucose VBG pH Oxyhemoglobin Carboxyhemoglobin Sodium Potassium Chloride Carbon Dioxide BUN Creatinine Glucose POC Glucose 108 H 106 H 109 H Random Insulin C-Peptide Lactic Acid Calcium Ionized Calcium Phosphorus Magnesium AST ALT Alkaline Phosphatase Lactate Dehydrogenase NT-Pro-B Natriuret Pep Total Protein Albumin Arterial Blood Glucose Arterial Blood Ionized Calcium Urine pH Urine WBC (Auto) U Epithel Cells (Auto) Vancomycin Trough Phenytoin Crossmatch 11/08/20 11/08/20 11/09/20 11:48 23:32 17:10 WBC RBC Hgb Hct MCV MCH MCHC RDW Plt Count Lymph % (Auto) [place] % (Auto) Lymph # (Auto) [place] # (Auto) Baso # (Auto) Seg Neutrophils % Seg Neuts % (Manual) Lymphocytes % (Manual) Monocytes % (Manual) Nucleated RBC % Seg Neutrophils # Seg Neutrophils # Man Lymphocytes # (Manual) Monocytes # (Manual) PT INR APTT Fibrinogen D-Dimer ABG pH POC ABG pCO2 POC ABG pO2 ABG pO2 ABG HCO3 ABG Base Excess ABG Hemoglobin ABG Oxyhemoglobin ABG Sodium ABG Potassium ABG Chloride ABG Glucose VBG pH Oxyhemoglobin Carboxyhemoglobin Sodium Potassium Chloride Carbon Dioxide BUN Creatinine Glucose POC Glucose 110 H 116 H 112 H Random Insulin C-Peptide Lactic Acid Calcium Ionized Calcium Phosphorus Magnesium AST ALT Alkaline Phosphatase Lactate Dehydrogenase NT-Pro-B Natriuret Pep Total Protein Albumin Arterial Blood Glucose Arterial Blood Ionized Calcium Urine pH Urine WBC (Auto) U Epithel Cells (Auto) Vancomycin Trough Phenytoin Crossmatch 11/09/20 11/10/20 11/10/20 21:42 05:49 07:17 WBC RBC Hgb Hct MCV MCH MCHC RDW Plt Count Lymph % (Auto) [place] % (Auto) Lymph # (Auto) [place] # (Auto) Baso # (Auto) Seg Neutrophils % Seg Neuts % (Manual) Lymphocytes % (Manual) Monocytes % (Manual) Nucleated RBC % Seg Neutrophils # Seg Neutrophils # Man Lymphocytes # (Manual) Monocytes # (Manual) PT INR APTT Fibrinogen D-Dimer ABG pH POC ABG pCO2 POC ABG pO2 ABG pO2 ABG HCO3 ABG Base Excess ABG Hemoglobin ABG Oxyhemoglobin ABG Sodium ABG Potassium ABG Chloride ABG Glucose VBG pH Oxyhemoglobin Carboxyhemoglobin Sodium Potassium Chloride Carbon Dioxide BUN Creatinine Glucose POC Glucose 110 H 108 H 111 H Random Insulin C-Peptide Lactic Acid Calcium Ionized Calcium Phosphorus Magnesium AST ALT Alkaline Phosphatase Lactate Dehydrogenase NT-Pro-B Natriuret Pep Total Protein Albumin Arterial Blood Glucose Arterial Blood Ionized Calcium Urine pH Urine WBC (Auto) U Epithel Cells (Auto) Vancomycin Trough Phenytoin Crossmatch 11/10/20 11/11/20 11/11/20 20:36 04:58 11:56 WBC RBC Hgb Hct MCV MCH MCHC RDW Plt Count Lymph % (Auto) [place] % (Auto) Lymph # (Auto) [place] # (Auto) Baso # (Auto) Seg Neutrophils % Seg Neuts % (Manual) Lymphocytes % (Manual) Monocytes % (Manual) Nucleated RBC % Seg Neutrophils # Seg Neutrophils # Man Lymphocytes # (Manual) Monocytes # (Manual) PT INR APTT Fibrinogen D-Dimer ABG pH POC ABG pCO2 POC ABG pO2 ABG pO2 ABG HCO3 ABG Base Excess ABG Hemoglobin ABG Oxyhemoglobin ABG Sodium ABG Potassium ABG Chloride ABG Glucose VBG pH Oxyhemoglobin Carboxyhemoglobin Sodium Potassium Chloride Carbon Dioxide BUN Creatinine Glucose POC Glucose 111 H 109 H 109 H Random Insulin C-Peptide Lactic Acid Calcium Ionized Calcium Phosphorus Magnesium AST ALT Alkaline Phosphatase Lactate Dehydrogenase NT-Pro-B Natriuret Pep Total Protein Albumin Arterial Blood Glucose Arterial Blood Ionized Calcium Urine pH Urine WBC (Auto) U Epithel Cells (Auto) Vancomycin Trough Phenytoin Crossmatch 11/11/20 11/11/20 11/11/20 13:50 13:50 15:50 WBC RBC Hgb Hct MCV MCH MCHC RDW Plt Count Lymph % (Auto) [place] % (Auto) Lymph # (Auto) [place] # (Auto) Baso # (Auto) Seg Neutrophils % Seg Neuts % (Manual) Lymphocytes % (Manual) Monocytes % (Manual) Nucleated RBC % Seg Neutrophils # Seg Neutrophils # Man Lymphocytes # (Manual) Monocytes # (Manual) PT INR APTT Fibrinogen D-Dimer 1974.47 H ABG pH POC ABG pCO2 POC ABG pO2 ABG pO2 ABG HCO3 ABG Base Excess ABG Hemoglobin ABG Oxyhemoglobin ABG Sodium ABG Potassium ABG Chloride ABG Glucose VBG pH Oxyhemoglobin Carboxyhemoglobin Sodium Potassium Chloride Carbon Dioxide BUN Creatinine Glucose POC Glucose 107 H Random Insulin C-Peptide Lactic Acid Calcium Ionized Calcium Phosphorus Magnesium AST ALT Alkaline Phosphatase Lactate Dehydrogenase NT-Pro-B Natriuret Pep Total Protein Albumin Arterial Blood Glucose Arterial Blood Ionized Calcium Urine pH Urine WBC (Auto) > 182.0 H U Epithel Cells (Auto) Vancomycin Trough Phenytoin Crossmatch 11/11/20 11/12/20 11/12/20 23:17 11:33 22:20 WBC RBC Hgb Hct MCV MCH MCHC RDW Plt Count Lymph % (Auto) [place] % (Auto) Lymph # (Auto) [place] # (Auto) Baso # (Auto) Seg Neutrophils % Seg Neuts % (Manual) Lymphocytes % (Manual) Monocytes % (Manual) Nucleated RBC % Seg Neutrophils # Seg Neutrophils # Man Lymphocytes # (Manual) Monocytes # (Manual) PT INR APTT Fibrinogen D-Dimer ABG pH POC ABG pCO2 POC ABG pO2 ABG pO2 ABG HCO3 ABG Base Excess ABG Hemoglobin ABG Oxyhemoglobin ABG Sodium ABG Potassium ABG Chloride ABG Glucose VBG pH Oxyhemoglobin Carboxyhemoglobin Sodium Potassium Chloride Carbon Dioxide BUN Creatinine Glucose POC Glucose 119 H 111 H 107 H Random Insulin C-Peptide Lactic Acid Calcium Ionized Calcium Phosphorus Magnesium AST ALT Alkaline Phosphatase Lactate Dehydrogenase NT-Pro-B Natriuret Pep Total Protein Albumin Arterial Blood Glucose Arterial Blood Ionized Calcium Urine pH Urine WBC (Auto) U Epithel Cells (Auto) Vancomycin Trough Phenytoin Crossmatch 11/13/20 11/13/20 11/13/20 01:52 07:33 10:05 WBC RBC Hgb Hct MCV MCH MCHC RDW Plt Count Lymph % (Auto) [place] % (Auto) Lymph # (Auto) [place] # (Auto) Baso # (Auto) Seg Neutrophils % Seg Neuts % (Manual) Lymphocytes % (Manual) Monocytes % (Manual) Nucleated RBC % Seg Neutrophils # Seg Neutrophils # Man Lymphocytes # (Manual) Monocytes # (Manual) PT INR APTT Fibrinogen D-Dimer ABG pH POC ABG pCO2 POC ABG pO2 ABG pO2 ABG HCO3 ABG Base Excess ABG Hemoglobin ABG Oxyhemoglobin ABG Sodium ABG Potassium ABG Chloride ABG Glucose VBG pH Oxyhemoglobin Carboxyhemoglobin Sodium Potassium Chloride Carbon Dioxide BUN Creatinine Glucose 114 H POC Glucose 124 H 106 H Random Insulin C-Peptide Lactic Acid Calcium Ionized Calcium Phosphorus 4.60 H Magnesium AST ALT Alkaline Phosphatase Lactate Dehydrogenase NT-Pro-B Natriuret Pep Total Protein Albumin Arterial Blood Glucose Arterial Blood Ionized Calcium Urine pH Urine WBC (Auto) U Epithel Cells (Auto) Vancomycin Trough Phenytoin Crossmatch 11/13/20 11/13/20 11/14/20 11:50 17:20 05:26 WBC RBC Hgb Hct MCV MCH MCHC RDW Plt Count Lymph % (Auto) [place] % (Auto) Lymph # (Auto) [place] # (Auto) Baso # (Auto) Seg Neutrophils % Seg Neuts % (Manual) Lymphocytes % (Manual) Monocytes % (Manual) Nucleated RBC % Seg Neutrophils # Seg Neutrophils # Man Lymphocytes # (Manual) Monocytes # (Manual) PT INR APTT Fibrinogen D-Dimer ABG pH POC ABG pCO2 POC ABG pO2 ABG pO2 ABG HCO3 ABG Base Excess ABG Hemoglobin ABG Oxyhemoglobin ABG Sodium ABG Potassium ABG Chloride ABG Glucose VBG pH Oxyhemoglobin Carboxyhemoglobin Sodium Potassium Chloride Carbon Dioxide BUN Creatinine Glucose POC Glucose 113 H 110 H 110 H Random Insulin C-Peptide Lactic Acid Calcium Ionized Calcium Phosphorus Magnesium AST ALT Alkaline Phosphatase Lactate Dehydrogenase NT-Pro-B Natriuret Pep Total Protein Albumin Arterial Blood Glucose Arterial Blood Ionized Calcium Urine pH Urine WBC (Auto) U Epithel Cells (Auto) Vancomycin Trough Phenytoin Crossmatch 11/14/20 11/15/20 11/15/20 23:23 05:07 11:48 WBC RBC Hgb Hct MCV MCH MCHC RDW Plt Count Lymph % (Auto) [place] % (Auto) Lymph # (Auto) [place] # (Auto) Baso # (Auto) Seg Neutrophils % Seg Neuts % (Manual) Lymphocytes % (Manual) Monocytes % (Manual) Nucleated RBC % Seg Neutrophils # Seg Neutrophils # Man Lymphocytes # (Manual) Monocytes # (Manual) PT INR APTT Fibrinogen D-Dimer ABG pH POC ABG pCO2 POC ABG pO2 ABG pO2 ABG HCO3 ABG Base Excess ABG Hemoglobin ABG Oxyhemoglobin ABG Sodium ABG Potassium ABG Chloride ABG Glucose VBG pH Oxyhemoglobin Carboxyhemoglobin Sodium Potassium Chloride Carbon Dioxide BUN Creatinine Glucose POC Glucose 112 H 115 H 114 H Random Insulin C-Peptide Lactic Acid Calcium Ionized Calcium Phosphorus Magnesium AST ALT Alkaline Phosphatase Lactate Dehydrogenase NT-Pro-B Natriuret Pep Total Protein Albumin Arterial Blood Glucose Arterial Blood Ionized Calcium Urine pH Urine WBC (Auto) U Epithel Cells (Auto) Vancomycin Trough Phenytoin Crossmatch 11/16/20 11/17/20 11/18/20 05:06 00:17 05:04 WBC RBC Hgb Hct MCV MCH MCHC RDW Plt Count Lymph % (Auto) [place] % (Auto) Lymph # (Auto) [place] # (Auto) Baso # (Auto) Seg Neutrophils % Seg Neuts % (Manual) Lymphocytes % (Manual) Monocytes % (Manual) Nucleated RBC % Seg Neutrophils # Seg Neutrophils # Man Lymphocytes # (Manual) Monocytes # (Manual) PT INR APTT Fibrinogen D-Dimer ABG pH POC ABG pCO2 POC ABG pO2 ABG pO2 ABG HCO3 ABG Base Excess ABG Hemoglobin ABG Oxyhemoglobin ABG Sodium ABG Potassium ABG Chloride ABG Glucose VBG pH Oxyhemoglobin Carboxyhemoglobin Sodium Potassium Chloride Carbon Dioxide BUN Creatinine Glucose POC Glucose 110 H 115 H 111 H Random Insulin C-Peptide Lactic Acid Calcium Ionized Calcium Phosphorus Magnesium AST ALT Alkaline Phosphatase Lactate Dehydrogenase NT-Pro-B Natriuret Pep Total Protein Albumin Arterial Blood Glucose Arterial Blood Ionized Calcium Urine pH Urine WBC (Auto) U Epithel Cells (Auto) Vancomycin Trough Phenytoin Crossmatch 11/21/20 11/21/20 11/21/20 00:04 05:51 23:26 WBC RBC Hgb Hct MCV MCH MCHC RDW Plt Count Lymph % (Auto) [place] % (Auto) Lymph # (Auto) [place] # (Auto) Baso # (Auto) Seg Neutrophils % Seg Neuts % (Manual) Lymphocytes % (Manual) Monocytes % (Manual) Nucleated RBC % Seg Neutrophils # Seg Neutrophils # Man Lymphocytes # (Manual) Monocytes # (Manual) PT INR APTT Fibrinogen D-Dimer ABG pH POC ABG pCO2 POC ABG pO2 ABG pO2 ABG HCO3 ABG Base Excess ABG Hemoglobin ABG Oxyhemoglobin ABG Sodium ABG Potassium ABG Chloride ABG Glucose VBG pH Oxyhemoglobin Carboxyhemoglobin Sodium Potassium Chloride Carbon Dioxide BUN Creatinine Glucose POC Glucose 117 H 112 H 107 H Random Insulin C-Peptide Lactic Acid Calcium Ionized Calcium Phosphorus Magnesium AST ALT Alkaline Phosphatase Lactate Dehydrogenase NT-Pro-B Natriuret Pep Total Protein Albumin Arterial Blood Glucose Arterial Blood Ionized Calcium Urine pH Urine WBC (Auto) U Epithel Cells (Auto) Vancomycin Trough Phenytoin Crossmatch 11/22/20 11/22/20 11/22/20 05:24 11:59 23:19 WBC RBC Hgb Hct MCV MCH MCHC RDW Plt Count Lymph % (Auto) [place] % (Auto) Lymph # (Auto) [place] # (Auto) Baso # (Auto) Seg Neutrophils % Seg Neuts % (Manual) Lymphocytes % (Manual) Monocytes % (Manual) Nucleated RBC % Seg Neutrophils # Seg Neutrophils # Man Lymphocytes # (Manual) Monocytes # (Manual) PT INR APTT Fibrinogen D-Dimer ABG pH POC ABG pCO2 POC ABG pO2 ABG pO2 ABG HCO3 ABG Base Excess ABG Hemoglobin ABG Oxyhemoglobin ABG Sodium ABG Potassium ABG Chloride ABG Glucose VBG pH Oxyhemoglobin Carboxyhemoglobin Sodium Potassium Chloride Carbon Dioxide BUN Creatinine Glucose POC Glucose 120 H 111 H 112 H Random Insulin C-Peptide Lactic Acid Calcium Ionized Calcium Phosphorus Magnesium AST ALT Alkaline Phosphatase Lactate Dehydrogenase NT-Pro-B Natriuret Pep Total Protein Albumin Arterial Blood Glucose Arterial Blood Ionized Calcium Urine pH Urine WBC (Auto) U Epithel Cells (Auto) Vancomycin Trough Phenytoin Crossmatch 11/23/20 11/24/20 11/24/20 23:42 05:33 12:04 WBC RBC Hgb Hct MCV MCH MCHC RDW Plt Count Lymph % (Auto) [place] % (Auto) Lymph # (Auto) [place] # (Auto) Baso # (Auto) Seg Neutrophils % Seg Neuts % (Manual) Lymphocytes % (Manual) Monocytes % (Manual) Nucleated RBC % Seg Neutrophils # Seg Neutrophils # Man Lymphocytes # (Manual) Monocytes # (Manual) PT INR APTT Fibrinogen D-Dimer ABG pH POC ABG pCO2 POC ABG pO2 ABG pO2 ABG HCO3 ABG Base Excess ABG Hemoglobin ABG Oxyhemoglobin ABG Sodium ABG Potassium ABG Chloride ABG Glucose VBG pH Oxyhemoglobin Carboxyhemoglobin Sodium Potassium Chloride Carbon Dioxide BUN Creatinine Glucose POC Glucose 111 H 108 H 118 H Random Insulin C-Peptide Lactic Acid Calcium Ionized Calcium Phosphorus Magnesium AST ALT Alkaline Phosphatase Lactate Dehydrogenase NT-Pro-B Natriuret Pep Total Protein Albumin Arterial Blood Glucose Arterial Blood Ionized Calcium Urine pH Urine WBC (Auto) U Epithel Cells (Auto) Vancomycin Trough Phenytoin Crossmatch 11/25/20 11/26/20 11/26/20 23:11 04:37 04:37 WBC RBC Hgb Hct MCV MCH MCHC RDW 15.4 H Plt Count Lymph % (Auto) [place] % (Auto) 10.1 H Lymph # (Auto) [place] # (Auto) 1.0 H Baso # (Auto) Seg Neutrophils % Seg Neuts % (Manual) Lymphocytes % (Manual) Monocytes % (Manual) Nucleated RBC % Seg Neutrophils # Seg Neutrophils # Man Lymphocytes # (Manual) Monocytes # (Manual) PT INR APTT Fibrinogen D-Dimer ABG pH POC ABG pCO2 POC ABG pO2 ABG pO2 ABG HCO3 ABG Base Excess ABG Hemoglobin ABG Oxyhemoglobin ABG Sodium ABG Potassium ABG Chloride ABG Glucose VBG pH Oxyhemoglobin Carboxyhemoglobin Sodium Potassium Chloride Carbon Dioxide BUN Creatinine Glucose 109 H POC Glucose 115 H Random Insulin C-Peptide Lactic Acid Calcium Ionized Calcium Phosphorus Magnesium AST 51 H ALT Alkaline Phosphatase Lactate Dehydrogenase NT-Pro-B Natriuret Pep Total Protein Albumin Arterial Blood Glucose Arterial Blood Ionized Calcium Urine pH Urine WBC (Auto) U Epithel Cells (Auto) Vancomycin Trough Phenytoin Crossmatch 11/26/20 11/27/20 11/28/20 23:27 23:38 05:25 WBC RBC Hgb Hct MCV MCH MCHC RDW Plt Count Lymph % (Auto) [place] % (Auto) Lymph # (Auto) [place] # (Auto) Baso # (Auto) Seg Neutrophils % Seg Neuts % (Manual) Lymphocytes % (Manual) Monocytes % (Manual) Nucleated RBC % Seg Neutrophils # Seg Neutrophils # Man Lymphocytes # (Manual) Monocytes # (Manual) PT INR APTT Fibrinogen D-Dimer ABG pH POC ABG pCO2 POC ABG pO2 ABG pO2 ABG HCO3 ABG Base Excess ABG Hemoglobin ABG Oxyhemoglobin ABG Sodium ABG Potassium ABG Chloride ABG Glucose VBG pH Oxyhemoglobin Carboxyhemoglobin Sodium Potassium Chloride Carbon Dioxide BUN Creatinine Glucose POC Glucose 115 H 111 H 107 H Random Insulin C-Peptide Lactic Acid Calcium Ionized Calcium Phosphorus Magnesium AST ALT Alkaline Phosphatase Lactate Dehydrogenase NT-Pro-B Natriuret Pep Total Protein Albumin Arterial Blood Glucose Arterial Blood Ionized Calcium Urine pH Urine WBC (Auto) U Epithel Cells (Auto) Vancomycin Trough Phenytoin Crossmatch 11/28/20 11/29/20 11/29/20 11:45 23:38 23:46 WBC RBC Hgb Hct MCV MCH MCHC RDW Plt Count Lymph % (Auto) [place] % (Auto) Lymph # (Auto) [place] # (Auto) Baso # (Auto) Seg Neutrophils % Seg Neuts % (Manual) Lymphocytes % (Manual) Monocytes % (Manual) Nucleated RBC % Seg Neutrophils # Seg Neutrophils # Man Lymphocytes # (Manual) Monocytes # (Manual) PT INR APTT Fibrinogen D-Dimer ABG pH POC ABG pCO2 POC ABG pO2 ABG pO2 ABG HCO3 ABG Base Excess ABG Hemoglobin ABG Oxyhemoglobin ABG Sodium ABG Potassium ABG Chloride ABG Glucose VBG pH Oxyhemoglobin Carboxyhemoglobin Sodium Potassium Chloride Carbon Dioxide BUN Creatinine Glucose POC Glucose 112 H 109 H 117 H Random Insulin C-Peptide Lactic Acid Calcium Ionized Calcium Phosphorus Magnesium AST ALT Alkaline Phosphatase Lactate Dehydrogenase NT-Pro-B Natriuret Pep Total Protein Albumin Arterial Blood Glucose Arterial Blood Ionized Calcium Urine pH Urine WBC (Auto) U Epithel Cells (Auto) Vancomycin Trough Phenytoin Crossmatch 12/01/20 12/01/20 12/02/20 05:52 16:54 05:11 WBC RBC Hgb Hct MCV MCH MCHC RDW Plt Count Lymph % (Auto) [place] % (Auto) Lymph # (Auto) [place] # (Auto) Baso # (Auto) Seg Neutrophils % Seg Neuts % (Manual) Lymphocytes % (Manual) Monocytes % (Manual) Nucleated RBC % Seg Neutrophils # Seg Neutrophils # Man Lymphocytes # (Manual) Monocytes # (Manual) PT INR APTT Fibrinogen D-Dimer ABG pH POC ABG pCO2 POC ABG pO2 ABG pO2 ABG HCO3 ABG Base Excess ABG Hemoglobin ABG Oxyhemoglobin ABG Sodium ABG Potassium ABG Chloride ABG Glucose VBG pH Oxyhemoglobin Carboxyhemoglobin Sodium Potassium Chloride Carbon Dioxide BUN Creatinine Glucose POC Glucose 106 H 108 H 110 H Random Insulin C-Peptide Lactic Acid Calcium Ionized Calcium Phosphorus Magnesium AST ALT Alkaline Phosphatase Lactate Dehydrogenase NT-Pro-B Natriuret Pep Total Protein Albumin Arterial Blood Glucose Arterial Blood Ionized Calcium Urine pH Urine WBC (Auto) U Epithel Cells (Auto) Vancomycin Trough Phenytoin Crossmatch 12/02/20 12/02/20 12/03/20 18:01 23:49 05:36 WBC RBC Hgb Hct MCV MCH MCHC RDW Plt Count Lymph % (Auto) [place] % (Auto) Lymph # (Auto) [place] # (Auto) Baso # (Auto) Seg Neutrophils % Seg Neuts % (Manual) Lymphocytes % (Manual) Monocytes % (Manual) Nucleated RBC % Seg Neutrophils # Seg Neutrophils # Man Lymphocytes # (Manual) Monocytes # (Manual) PT INR APTT Fibrinogen D-Dimer ABG pH POC ABG pCO2 POC ABG pO2 ABG pO2 ABG HCO3 ABG Base Excess ABG Hemoglobin ABG Oxyhemoglobin ABG Sodium ABG Potassium ABG Chloride ABG Glucose VBG pH Oxyhemoglobin Carboxyhemoglobin Sodium Potassium Chloride Carbon Dioxide BUN Creatinine Glucose POC Glucose 120 H 111 H 109 H Random Insulin C-Peptide Lactic Acid Calcium Ionized Calcium Phosphorus Magnesium AST ALT Alkaline Phosphatase Lactate Dehydrogenase NT-Pro-B Natriuret Pep Total Protein Albumin Arterial Blood Glucose Arterial Blood Ionized Calcium Urine pH Urine WBC (Auto) U Epithel Cells (Auto) Vancomycin Trough Phenytoin Crossmatch 12/03/20 12/09/20 12/10/20 10:50 05:32 09:25 WBC RBC Hgb Hct MCV MCH MCHC RDW Plt Count Lymph % (Auto) [place] % (Auto) Lymph # (Auto) [place] # (Auto) Baso # (Auto) Seg Neutrophils % Seg Neuts % (Manual) Lymphocytes % (Manual) Monocytes % (Manual) Nucleated RBC % Seg Neutrophils # Seg Neutrophils # Man Lymphocytes # (Manual) Monocytes # (Manual) PT INR APTT Fibrinogen D-Dimer ABG pH POC ABG pCO2 POC ABG pO2 ABG pO2 ABG HCO3 ABG Base Excess ABG Hemoglobin ABG Oxyhemoglobin ABG Sodium ABG Potassium ABG Chloride ABG Glucose VBG pH Oxyhemoglobin Carboxyhemoglobin Sodium Potassium Chloride Carbon Dioxide BUN Creatinine Glucose POC Glucose 110 H 114 H Random Insulin C-Peptide Lactic Acid Calcium Ionized Calcium Phosphorus Magnesium AST ALT Alkaline Phosphatase Lactate Dehydrogenase NT-Pro-B Natriuret Pep Total Protein Albumin Arterial Blood Glucose Arterial Blood Ionized Calcium Urine pH Urine WBC (Auto) 50.0 H U Epithel Cells (Auto) Vancomycin Trough Phenytoin Crossmatch 12/10/20 12/10/20 12/13/20 09:37 09:37 05:12 WBC 12.5 H RBC Hgb Hct MCV MCH 26 L MCHC RDW Plt Count Lymph % (Auto) [place] % (Auto) Lymph # (Auto) [place] # (Auto) Baso # (Auto) Seg Neutrophils % Seg Neuts % (Manual) 81.0 H Lymphocytes % (Manual) Monocytes % (Manual) Nucleated RBC % Seg Neutrophils # Seg Neutrophils # Man 10.1 H Lymphocytes # (Manual) Monocytes # (Manual) PT INR APTT Fibrinogen D-Dimer ABG pH POC ABG pCO2 POC ABG pO2 ABG pO2 ABG HCO3 ABG Base Excess ABG Hemoglobin ABG Oxyhemoglobin ABG Sodium ABG Potassium ABG Chloride ABG Glucose VBG pH Oxyhemoglobin Carboxyhemoglobin Sodium 149 H Potassium Chloride 109.9 H Carbon Dioxide BUN 19 H Creatinine Glucose 105 H POC Glucose 112 H Random Insulin C-Peptide Lactic Acid Calcium Ionized Calcium Phosphorus Magnesium AST ALT Alkaline Phosphatase Lactate Dehydrogenase NT-Pro-B Natriuret Pep Total Protein Albumin Arterial Blood Glucose Arterial Blood Ionized Calcium Urine pH Urine WBC (Auto) U Epithel Cells (Auto) Vancomycin Trough Phenytoin Crossmatch 12/14/20 12/14/20 12/14/20 05:02 09:06 10:32 WBC RBC 5.30 H Hgb Hct 43.0 H MCV MCH 25 L MCHC RDW Plt Count Lymph % (Auto) [place] % (Auto) 7.8 H Lymph # (Auto) [place] # (Auto) Baso # (Auto) Seg Neutrophils % Seg Neuts % (Manual) Lymphocytes % (Manual) Monocytes % (Manual) Nucleated RBC % Seg Neutrophils # Seg Neutrophils # Man Lymphocytes # (Manual) Monocytes # (Manual) PT INR APTT Fibrinogen D-Dimer ABG pH POC ABG pCO2 POC ABG pO2 ABG pO2 ABG HCO3 ABG Base Excess ABG Hemoglobin ABG Oxyhemoglobin ABG Sodium ABG Potassium ABG Chloride ABG Glucose VBG pH Oxyhemoglobin Carboxyhemoglobin Sodium 155 H Potassium Chloride 117.2 H Carbon Dioxide BUN 21 H Creatinine Glucose 104 H POC Glucose 109 H Random Insulin C-Peptide Lactic Acid Calcium Ionized Calcium Phosphorus Magnesium AST 63 H ALT Alkaline Phosphatase Lactate Dehydrogenase NT-Pro-B Natriuret Pep Total Protein 8.3 H Albumin 3.8 L Arterial Blood Glucose Arterial Blood Ionized Calcium Urine pH Urine WBC (Auto) U Epithel Cells (Auto) Vancomycin Trough Phenytoin Crossmatch 12/15/20 12/15/20 12/16/20 05:40 11:56 05:42 WBC RBC Hgb Hct MCV MCH MCHC RDW Plt Count Lymph % (Auto) [place] % (Auto) Lymph # (Auto) [place] # (Auto) Baso # (Auto) Seg Neutrophils % Seg Neuts % (Manual) Lymphocytes % (Manual) Monocytes % (Manual) Nucleated RBC % Seg Neutrophils # Seg Neutrophils # Man Lymphocytes # (Manual) Monocytes # (Manual) PT INR APTT Fibrinogen D-Dimer ABG pH POC ABG pCO2 POC ABG pO2 ABG pO2 ABG HCO3 ABG Base Excess ABG Hemoglobin ABG Oxyhemoglobin ABG Sodium ABG Potassium ABG Chloride ABG Glucose VBG pH Oxyhemoglobin Carboxyhemoglobin Sodium Potassium Chloride Carbon Dioxide BUN Creatinine Glucose POC Glucose 125 H 107 H 108 H Random Insulin C-Peptide Lactic Acid Calcium Ionized Calcium Phosphorus Magnesium AST ALT Alkaline Phosphatase Lactate Dehydrogenase NT-Pro-B Natriuret Pep Total Protein Albumin Arterial Blood Glucose Arterial Blood Ionized Calcium Urine pH Urine WBC (Auto) U Epithel Cells (Auto) Vancomycin Trough Phenytoin Crossmatch 12/16/20 12/16/20 12/17/20 08:00 23:26 05:49 WBC RBC Hgb Hct MCV MCH MCHC RDW Plt Count Lymph % (Auto) [place] % (Auto) Lymph # (Auto) [place] # (Auto) Baso # (Auto) Seg Neutrophils % Seg Neuts % (Manual) Lymphocytes % (Manual) Monocytes % (Manual) Nucleated RBC % Seg Neutrophils # Seg Neutrophils # Man Lymphocytes # (Manual) Monocytes # (Manual) PT INR APTT Fibrinogen D-Dimer ABG pH POC ABG pCO2 POC ABG pO2 ABG pO2 ABG HCO3 ABG Base Excess ABG Hemoglobin ABG Oxyhemoglobin ABG Sodium ABG Potassium ABG Chloride ABG Glucose VBG pH Oxyhemoglobin Carboxyhemoglobin Sodium 156 H Potassium Chloride 117.9 H Carbon Dioxide BUN 24 H Creatinine Glucose 109 H POC Glucose 111 H 109 H Random Insulin C-Peptide Lactic Acid Calcium Ionized Calcium Phosphorus Magnesium AST ALT Alkaline Phosphatase Lactate Dehydrogenase NT-Pro-B Natriuret Pep Total Protein Albumin Arterial Blood Glucose Arterial Blood Ionized Calcium Urine pH Urine WBC (Auto) U Epithel Cells (Auto) Vancomycin Trough Phenytoin Crossmatch 12/17/20 12/17/20 12/18/20 11:41 23:27 04:57 WBC RBC 5.16 H Hgb Hct MCV MCH 25 L MCHC RDW Plt Count Lymph % (Auto) [place] % (Auto) Lymph # (Auto) [place] # (Auto) Baso # (Auto) Seg Neutrophils % Seg Neuts % (Manual) Lymphocytes % (Manual) Monocytes % (Manual) Nucleated RBC % Seg Neutrophils # Seg Neutrophils # Man Lymphocytes # (Manual) Monocytes # (Manual) PT INR APTT Fibrinogen D-Dimer ABG pH POC ABG pCO2 POC ABG pO2 ABG pO2 ABG HCO3 ABG Base Excess ABG Hemoglobin ABG Oxyhemoglobin ABG Sodium ABG Potassium ABG Chloride ABG Glucose VBG pH Oxyhemoglobin Carboxyhemoglobin Sodium Potassium Chloride Carbon Dioxide BUN Creatinine Glucose POC Glucose 108 H 108 H Random Insulin C-Peptide Lactic Acid Calcium Ionized Calcium Phosphorus Magnesium AST ALT Alkaline Phosphatase Lactate Dehydrogenase NT-Pro-B Natriuret Pep Total Protein Albumin Arterial Blood Glucose Arterial Blood Ionized Calcium Urine pH Urine WBC (Auto) U Epithel Cells (Auto) Vancomycin Trough Phenytoin Crossmatch 12/18/20 12/18/20 12/19/20 04:57 11:22 05:21 WBC RBC Hgb Hct MCV MCH MCHC RDW Plt Count Lymph % (Auto) [place] % (Auto) Lymph # (Auto) [place] # (Auto) Baso # (Auto) Seg Neutrophils % Seg Neuts % (Manual) Lymphocytes % (Manual) Monocytes % (Manual) Nucleated RBC % Seg Neutrophils # Seg Neutrophils # Man Lymphocytes # (Manual) Monocytes # (Manual) PT INR APTT Fibrinogen D-Dimer ABG pH POC ABG pCO2 POC ABG pO2 ABG pO2 ABG HCO3 ABG Base Excess ABG Hemoglobin ABG Oxyhemoglobin ABG Sodium ABG Potassium ABG Chloride ABG Glucose VBG pH Oxyhemoglobin Carboxyhemoglobin Sodium 150 H Potassium Chloride 110.8 H Carbon Dioxide BUN 20 H Creatinine Glucose POC Glucose 107 H 108 H Random Insulin C-Peptide Lactic Acid Calcium Ionized Calcium Phosphorus Magnesium AST ALT Alkaline Phosphatase Lactate Dehydrogenase NT-Pro-B Natriuret Pep Total Protein Albumin Arterial Blood Glucose Arterial Blood Ionized Calcium Urine pH Urine WBC (Auto) U Epithel Cells (Auto) Vancomycin Trough Phenytoin Crossmatch 12/19/20 12/20/20 12/22/20 23:28 23:54 11:03 WBC RBC Hgb Hct MCV MCH MCHC RDW Plt Count Lymph % (Auto) [place] % (Auto) Lymph # (Auto) [place] # (Auto) Baso # (Auto) Seg Neutrophils % Seg Neuts % (Manual) Lymphocytes % (Manual) Monocytes % (Manual) Nucleated RBC % Seg Neutrophils # Seg Neutrophils # Man Lymphocytes # (Manual) Monocytes # (Manual) PT INR APTT Fibrinogen D-Dimer ABG pH POC ABG pCO2 POC ABG pO2 ABG pO2 ABG HCO3 ABG Base Excess ABG Hemoglobin ABG Oxyhemoglobin ABG Sodium ABG Potassium ABG Chloride ABG Glucose VBG pH Oxyhemoglobin Carboxyhemoglobin Sodium Potassium Chloride Carbon Dioxide BUN Creatinine 0.5 L Glucose 110 H POC Glucose 128 H 108 H Random Insulin C-Peptide Lactic Acid Calcium Ionized Calcium Phosphorus Magnesium AST 45 H ALT Alkaline Phosphatase Lactate Dehydrogenase NT-Pro-B Natriuret Pep Total Protein Albumin 3.8 L Arterial Blood Glucose Arterial Blood Ionized Calcium Urine pH Urine WBC (Auto) U Epithel Cells (Auto) Vancomycin Trough Phenytoin Crossmatch 12/23/20 12/23/20 12/25/20 16:50 23:30 00:34 WBC RBC Hgb Hct MCV MCH MCHC RDW Plt Count Lymph % (Auto) [place] % (Auto) Lymph # (Auto) [place] # (Auto) Baso # (Auto) Seg Neutrophils % Seg Neuts % (Manual) Lymphocytes % (Manual) Monocytes % (Manual) Nucleated RBC % Seg Neutrophils # Seg Neutrophils # Man Lymphocytes # (Manual) Monocytes # (Manual) PT INR APTT Fibrinogen D-Dimer ABG pH POC ABG pCO2 POC ABG pO2 ABG pO2 ABG HCO3 ABG Base Excess ABG Hemoglobin ABG Oxyhemoglobin ABG Sodium ABG Potassium ABG Chloride ABG Glucose VBG pH Oxyhemoglobin Carboxyhemoglobin Sodium Potassium Chloride Carbon Dioxide BUN Creatinine Glucose POC Glucose 115 H 111 H 106 H Random Insulin C-Peptide Lactic Acid Calcium Ionized Calcium Phosphorus Magnesium AST ALT Alkaline Phosphatase Lactate Dehydrogenase NT-Pro-B Natriuret Pep Total Protein Albumin Arterial Blood Glucose Arterial Blood Ionized Calcium Urine pH Urine WBC (Auto) U Epithel Cells (Auto) Vancomycin Trough Phenytoin Crossmatch 12/26/20 12/26/20 12/26/20 06:14 11:49 23:00 WBC RBC Hgb Hct MCV MCH MCHC RDW Plt Count Lymph % (Auto) [place] % (Auto) Lymph # (Auto) [place] # (Auto) Baso # (Auto) Seg Neutrophils % Seg Neuts % (Manual) Lymphocytes % (Manual) Monocytes % (Manual) Nucleated RBC % Seg Neutrophils # Seg Neutrophils # Man Lymphocytes # (Manual) Monocytes # (Manual) PT INR APTT Fibrinogen D-Dimer ABG pH POC ABG pCO2 POC ABG pO2 ABG pO2 ABG HCO3 ABG Base Excess ABG Hemoglobin ABG Oxyhemoglobin ABG Sodium ABG Potassium ABG Chloride ABG Glucose VBG pH Oxyhemoglobin Carboxyhemoglobin Sodium Potassium Chloride Carbon Dioxide BUN Creatinine Glucose POC Glucose 107 H 111 H 107 H Random Insulin C-Peptide Lactic Acid Calcium Ionized Calcium Phosphorus Magnesium AST ALT Alkaline Phosphatase Lactate Dehydrogenase NT-Pro-B Natriuret Pep Total Protein Albumin Arterial Blood Glucose Arterial Blood Ionized Calcium Urine pH Urine WBC (Auto) U Epithel Cells (Auto) Vancomycin Trough Phenytoin Crossmatch 12/27/20 12/30/20 01/01/21 22:25 06:48 11:44 WBC RBC Hgb Hct MCV MCH MCHC RDW Plt Count Lymph % (Auto) [place] % (Auto) Lymph # (Auto) [place] # (Auto) Baso # (Auto) Seg Neutrophils % Seg Neuts % (Manual) Lymphocytes % (Manual) Monocytes % (Manual) Nucleated RBC % Seg Neutrophils # Seg Neutrophils # Man Lymphocytes # (Manual) Monocytes # (Manual) PT INR APTT Fibrinogen D-Dimer ABG pH POC ABG pCO2 POC ABG pO2 ABG pO2 ABG HCO3 ABG Base Excess ABG Hemoglobin ABG Oxyhemoglobin ABG Sodium ABG Potassium ABG Chloride ABG Glucose VBG pH Oxyhemoglobin Carboxyhemoglobin Sodium Potassium Chloride Carbon Dioxide BUN Creatinine Glucose POC Glucose 106 H 107 H Random Insulin C-Peptide Lactic Acid Calcium Ionized Calcium Phosphorus Magnesium AST ALT Alkaline Phosphatase Lactate Dehydrogenase NT-Pro-B Natriuret Pep Total Protein Albumin Arterial Blood Glucose Arterial Blood Ionized Calcium Urine pH Urine WBC (Auto) U Epithel Cells (Auto) 16.0 H Vancomycin Trough Phenytoin Crossmatch 01/01/21 01/02/21 01/02/21 16:21 00:32 06:47 WBC RBC Hgb Hct MCV MCH MCHC RDW Plt Count Lymph % (Auto) [place] % (Auto) Lymph # (Auto) [place] # (Auto) Baso # (Auto) Seg Neutrophils % Seg Neuts % (Manual) Lymphocytes % (Manual) Monocytes % (Manual) Nucleated RBC % Seg Neutrophils # Seg Neutrophils # Man Lymphocytes # (Manual) Monocytes # (Manual) PT INR APTT Fibrinogen D-Dimer ABG pH POC ABG pCO2 POC ABG pO2 ABG pO2 ABG HCO3 ABG Base Excess ABG Hemoglobin ABG Oxyhemoglobin ABG Sodium ABG Potassium ABG Chloride ABG Glucose VBG pH Oxyhemoglobin Carboxyhemoglobin Sodium 152 H Potassium Chloride 117.8 H Carbon Dioxide 20 L BUN 21 H Creatinine Glucose 125 H POC Glucose 106 H 113 H Random Insulin C-Peptide Lactic Acid Calcium Ionized Calcium Phosphorus Magnesium AST ALT Alkaline Phosphatase Lactate Dehydrogenase NT-Pro-B Natriuret Pep Total Protein Albumin Arterial Blood Glucose Arterial Blood Ionized Calcium Urine pH Urine WBC (Auto) U Epithel Cells (Auto) Vancomycin Trough Phenytoin Crossmatch 01/02/21 01/02/21 01/02/21 06:47 12:15 23:44 WBC RBC 5.61 H Hgb Hct 43.8 H MCV 78 L MCH 25 L MCHC RDW Plt Count Lymph % (Auto) [place] % (Auto) 9.5 H Lymph # (Auto) [place] # (Auto) 0.9 H Baso # (Auto) Seg Neutrophils % Seg Neuts % (Manual) Lymphocytes % (Manual) Monocytes % (Manual) Nucleated RBC % Seg Neutrophils # Seg Neutrophils # Man Lymphocytes # (Manual) Monocytes # (Manual) PT INR APTT Fibrinogen D-Dimer ABG pH POC ABG pCO2 POC ABG pO2 ABG pO2 ABG HCO3 ABG Base Excess ABG Hemoglobin ABG Oxyhemoglobin ABG Sodium ABG Potassium ABG Chloride ABG Glucose VBG pH Oxyhemoglobin Carboxyhemoglobin Sodium Potassium Chloride Carbon Dioxide BUN Creatinine Glucose POC Glucose 111 H 120 H Random Insulin C-Peptide Lactic Acid Calcium Ionized Calcium Phosphorus Magnesium AST ALT Alkaline Phosphatase Lactate Dehydrogenase NT-Pro-B Natriuret Pep Total Protein Albumin Arterial Blood Glucose Arterial Blood Ionized Calcium Urine pH Urine WBC (Auto) U Epithel Cells (Auto) Vancomycin Trough Phenytoin Crossmatch 01/03/21 01/03/21 01/04/21 05:04 06:18 05:56 WBC RBC Hgb Hct MCV MCH MCHC RDW Plt Count Lymph % (Auto) [place] % (Auto) Lymph # (Auto) [place] # (Auto) Baso # (Auto) Seg Neutrophils % Seg Neuts % (Manual) Lymphocytes % (Manual) Monocytes % (Manual) Nucleated RBC % Seg Neutrophils # Seg Neutrophils # Man Lymphocytes # (Manual) Monocytes # (Manual) PT INR APTT Fibrinogen D-Dimer ABG pH POC ABG pCO2 POC ABG pO2 ABG pO2 ABG HCO3 ABG Base Excess ABG Hemoglobin ABG Oxyhemoglobin ABG Sodium ABG Potassium ABG Chloride ABG Glucose VBG pH Oxyhemoglobin Carboxyhemoglobin Sodium 153 H Potassium Chloride 119.1 H 109.8 H Carbon Dioxide 20 L BUN 18 H Creatinine 0.5 L Glucose 110 H POC Glucose 113 H Random Insulin C-Peptide Lactic Acid Calcium Ionized Calcium Phosphorus Magnesium AST ALT Alkaline Phosphatase Lactate Dehydrogenase NT-Pro-B Natriuret Pep Total Protein Albumin Arterial Blood Glucose Arterial Blood Ionized Calcium Urine pH Urine WBC (Auto) U Epithel Cells (Auto) Vancomycin Trough Phenytoin Crossmatch 01/04/21 01/04/21 01/06/21 06:11 11:52 05:37 WBC RBC Hgb Hct MCV MCH MCHC RDW Plt Count Lymph % (Auto) [place] % (Auto) Lymph # (Auto) [place] # (Auto) Baso # (Auto) Seg Neutrophils % Seg Neuts % (Manual) Lymphocytes % (Manual) Monocytes % (Manual) Nucleated RBC % Seg Neutrophils # Seg Neutrophils # Man Lymphocytes # (Manual) Monocytes # (Manual) PT INR APTT Fibrinogen D-Dimer ABG pH POC ABG pCO2 POC ABG pO2 ABG pO2 ABG HCO3 ABG Base Excess ABG Hemoglobin ABG Oxyhemoglobin ABG Sodium ABG Potassium ABG Chloride ABG Glucose VBG pH Oxyhemoglobin Carboxyhemoglobin Sodium Potassium Chloride Carbon Dioxide BUN Creatinine Glucose POC Glucose 106 H 106 H 106 H Random Insulin C-Peptide Lactic Acid Calcium Ionized Calcium Phosphorus Magnesium AST ALT Alkaline Phosphatase Lactate Dehydrogenase NT-Pro-B Natriuret Pep Total Protein Albumin Arterial Blood Glucose Arterial Blood Ionized Calcium Urine pH Urine WBC (Auto) U Epithel Cells (Auto) Vancomycin Trough Phenytoin Crossmatch 01/07/21 01/08/21 01/09/21 06:32 06:02 04:27 WBC RBC 5.22 H Hgb Hct MCV 76 L MCH 25 L MCHC RDW Plt Count Lymph % (Auto) [place] % (Auto) 9.7 H Lymph # (Auto) [place] # (Auto) Baso # (Auto) Seg Neutrophils % Seg Neuts % (Manual) Lymphocytes % (Manual) Monocytes % (Manual) Nucleated RBC % Seg Neutrophils # Seg Neutrophils # Man Lymphocytes # (Manual) Monocytes # (Manual) PT INR APTT Fibrinogen D-Dimer ABG pH POC ABG pCO2 POC ABG pO2 ABG pO2 ABG HCO3 ABG Base Excess ABG Hemoglobin ABG Oxyhemoglobin ABG Sodium ABG Potassium ABG Chloride ABG Glucose VBG pH Oxyhemoglobin Carboxyhemoglobin Sodium Potassium Chloride Carbon Dioxide BUN Creatinine Glucose POC Glucose 115 H 129 H Random Insulin C-Peptide Lactic Acid Calcium Ionized Calcium Phosphorus Magnesium AST ALT Alkaline Phosphatase Lactate Dehydrogenase NT-Pro-B Natriuret Pep Total Protein Albumin Arterial Blood Glucose Arterial Blood Ionized Calcium Urine pH Urine WBC (Auto) U Epithel Cells (Auto) Vancomycin Trough Phenytoin Crossmatch 01/09/21 01/09/21 01/10/21 04:27 16:14 12:41 WBC RBC Hgb Hct MCV MCH MCHC RDW Plt Count Lymph % (Auto) [place] % (Auto) Lymph # (Auto) [place] # (Auto) Baso # (Auto) Seg Neutrophils % Seg Neuts % (Manual) Lymphocytes % (Manual) Monocytes % (Manual) Nucleated RBC % Seg Neutrophils # Seg Neutrophils # Man Lymphocytes # (Manual) Monocytes # (Manual) PT INR APTT Fibrinogen D-Dimer ABG pH POC ABG pCO2 POC ABG pO2 ABG pO2 ABG HCO3 ABG Base Excess ABG Hemoglobin ABG Oxyhemoglobin ABG Sodium ABG Potassium ABG Chloride ABG Glucose VBG pH Oxyhemoglobin Carboxyhemoglobin Sodium Potassium Chloride Carbon Dioxide BUN Creatinine 0.5 L Glucose POC Glucose 111 H 115 H Random Insulin C-Peptide Lactic Acid Calcium Ionized Calcium Phosphorus Magnesium AST ALT Alkaline Phosphatase Lactate Dehydrogenase NT-Pro-B Natriuret Pep Total Protein Albumin Arterial Blood Glucose Arterial Blood Ionized Calcium Urine pH Urine WBC (Auto) U Epithel Cells (Auto) Vancomycin Trough Phenytoin Crossmatch 01/13/21 01/17/21 01/17/21 05:48 07:40 07:40 WBC RBC 5.23 H Hgb Hct MCV 75 L MCH 24 L MCHC RDW Plt Count Lymph % (Auto) [place] % (Auto) 8.2 H Lymph # (Auto) [place] # (Auto) Baso # (Auto) Seg Neutrophils % Seg Neuts % (Manual) Lymphocytes % (Manual) Monocytes % (Manual) Nucleated RBC % Seg Neutrophils # Seg Neutrophils # Man Lymphocytes # (Manual) Monocytes # (Manual) PT INR APTT Fibrinogen D-Dimer ABG pH POC ABG pCO2 POC ABG pO2 ABG pO2 ABG HCO3 ABG Base Excess ABG Hemoglobin ABG Oxyhemoglobin ABG Sodium ABG Potassium ABG Chloride ABG Glucose VBG pH Oxyhemoglobin Carboxyhemoglobin Sodium 135 L Potassium Chloride Carbon Dioxide BUN Creatinine Glucose POC Glucose 110 H Random Insulin C-Peptide Lactic Acid Calcium Ionized Calcium Phosphorus Magnesium AST ALT Alkaline Phosphatase Lactate Dehydrogenase NT-Pro-B Natriuret Pep Total Protein Albumin Arterial Blood Glucose Arterial Blood Ionized Calcium Urine pH Urine WBC (Auto) U Epithel Cells (Auto) Vancomycin Trough Phenytoin Crossmatch 01/17/21 01/18/21 01/18/21 23:41 08:47 17:54 WBC RBC Hgb Hct MCV MCH MCHC RDW Plt Count Lymph % (Auto) [place] % (Auto) Lymph # (Auto) [place] # (Auto) Baso # (Auto) Seg Neutrophils % Seg Neuts % (Manual) Lymphocytes % (Manual) Monocytes % (Manual) Nucleated RBC % Seg Neutrophils # Seg Neutrophils # Man Lymphocytes # (Manual) Monocytes # (Manual) PT INR APTT Fibrinogen D-Dimer ABG pH POC ABG pCO2 POC ABG pO2 ABG pO2 ABG HCO3 ABG Base Excess ABG Hemoglobin ABG Oxyhemoglobin ABG Sodium ABG Potassium ABG Chloride ABG Glucose VBG pH Oxyhemoglobin Carboxyhemoglobin Sodium Potassium Chloride Carbon Dioxide BUN Creatinine Glucose POC Glucose 110 H 114 H Random Insulin C-Peptide Lactic Acid Calcium Ionized Calcium Phosphorus Magnesium AST ALT Alkaline Phosphatase Lactate Dehydrogenase NT-Pro-B Natriuret Pep Total Protein Albumin Arterial Blood Glucose Arterial Blood Ionized Calcium Urine pH 8.0 H Urine WBC (Auto) U Epithel Cells (Auto) Vancomycin Trough Phenytoin Crossmatch 01/19/21 01/19/21 01/20/21 05:18 10:47 06:10 WBC RBC Hgb Hct MCV MCH MCHC RDW Plt Count Lymph % (Auto) [place] % (Auto) Lymph # (Auto) [place] # (Auto) Baso # (Auto) Seg Neutrophils % Seg Neuts % (Manual) Lymphocytes % (Manual) Monocytes % (Manual) Nucleated RBC % Seg Neutrophils # Seg Neutrophils # Man Lymphocytes # (Manual) Monocytes # (Manual) PT INR APTT Fibrinogen D-Dimer ABG pH POC ABG pCO2 POC ABG pO2 ABG pO2 ABG HCO3 ABG Base Excess ABG Hemoglobin ABG Oxyhemoglobin ABG Sodium ABG Potassium ABG Chloride ABG Glucose VBG pH Oxyhemoglobin Carboxyhemoglobin Sodium Potassium Chloride Carbon Dioxide BUN Creatinine Glucose POC Glucose 110 H 124 H 110 H Random Insulin C-Peptide Lactic Acid Calcium Ionized Calcium Phosphorus Magnesium AST ALT Alkaline Phosphatase Lactate Dehydrogenase NT-Pro-B Natriuret Pep Total Protein Albumin Arterial Blood Glucose Arterial Blood Ionized Calcium Urine pH Urine WBC (Auto) U Epithel Cells (Auto) Vancomycin Trough Phenytoin Crossmatch 01/20/21 01/21/21 01/23/21 22:13 22:44 06:21 WBC RBC Hgb Hct MCV MCH MCHC RDW Plt Count Lymph % (Auto) [place] % (Auto) Lymph # (Auto) [place] # (Auto) Baso # (Auto) Seg Neutrophils % Seg Neuts % (Manual) Lymphocytes % (Manual) Monocytes % (Manual) Nucleated RBC % Seg Neutrophils # Seg Neutrophils # Man Lymphocytes # (Manual) Monocytes # (Manual) PT INR APTT Fibrinogen D-Dimer ABG pH POC ABG pCO2 POC ABG pO2 ABG pO2 ABG HCO3 ABG Base Excess ABG Hemoglobin ABG Oxyhemoglobin ABG Sodium ABG Potassium ABG Chloride ABG Glucose VBG pH Oxyhemoglobin Carboxyhemoglobin Sodium Potassium Chloride Carbon Dioxide BUN Creatinine Glucose POC Glucose 109 H 120 H 106 H Random Insulin C-Peptide Lactic Acid Calcium Ionized Calcium Phosphorus Magnesium AST ALT Alkaline Phosphatase Lactate Dehydrogenase NT-Pro-B Natriuret Pep Total Protein Albumin Arterial Blood Glucose Arterial Blood Ionized Calcium Urine pH Urine WBC (Auto) U Epithel Cells (Auto) Vancomycin Trough Phenytoin Crossmatch 01/23/21 01/24/21 01/24/21 23:54 04:18 04:18 WBC RBC 5.23 H Hgb Hct MCV 75 L MCH 25 L MCHC RDW Plt Count Lymph % (Auto) [place] % (Auto) 11.8 H Lymph # (Auto) [place] # (Auto) 0.9 H Baso # (Auto) Seg Neutrophils % Seg Neuts % (Manual) Lymphocytes % (Manual) Monocytes % (Manual) Nucleated RBC % Seg Neutrophils # Seg Neutrophils # Man Lymphocytes # (Manual) Monocytes # (Manual) PT INR APTT Fibrinogen D-Dimer ABG pH POC ABG pCO2 POC ABG pO2 ABG pO2 ABG HCO3 ABG Base Excess ABG Hemoglobin ABG Oxyhemoglobin ABG Sodium ABG Potassium ABG Chloride ABG Glucose VBG pH Oxyhemoglobin Carboxyhemoglobin Sodium Potassium Chloride Carbon Dioxide BUN Creatinine Glucose POC Glucose 109 H Random Insulin C-Peptide Lactic Acid Calcium Ionized Calcium Phosphorus Magnesium AST ALT Alkaline Phosphatase Lactate Dehydrogenase NT-Pro-B Natriuret Pep Total Protein Albumin 3.7 L Arterial Blood Glucose Arterial Blood Ionized Calcium Urine pH Urine WBC (Auto) U Epithel Cells (Auto) Vancomycin Trough Phenytoin Crossmatch 01/24/21 01/25/21 01/26/21 05:11 00:29 05:33 WBC RBC Hgb Hct MCV MCH MCHC RDW Plt Count Lymph % (Auto) [place] % (Auto) Lymph # (Auto) [place] # (Auto) Baso # (Auto) Seg Neutrophils % Seg Neuts % (Manual) Lymphocytes % (Manual) Monocytes % (Manual) Nucleated RBC % Seg Neutrophils # Seg Neutrophils # Man Lymphocytes # (Manual) Monocytes # (Manual) PT INR APTT Fibrinogen D-Dimer ABG pH POC ABG pCO2 POC ABG pO2 ABG pO2 ABG HCO3 ABG Base Excess ABG Hemoglobin ABG Oxyhemoglobin ABG Sodium ABG Potassium ABG Chloride ABG Glucose VBG pH Oxyhemoglobin Carboxyhemoglobin Sodium Potassium Chloride Carbon Dioxide BUN Creatinine Glucose POC Glucose 116 H 106 H 109 H Random Insulin C-Peptide Lactic Acid Calcium Ionized Calcium Phosphorus Magnesium AST ALT Alkaline Phosphatase Lactate Dehydrogenase NT-Pro-B Natriuret Pep Total Protein Albumin Arterial Blood Glucose Arterial Blood Ionized Calcium Urine pH Urine WBC (Auto) U Epithel Cells (Auto) Vancomycin Trough Phenytoin Crossmatch 01/27/21 01/27/21 01/27/21 00:05 06:32 10:58 WBC RBC Hgb Hct MCV MCH MCHC RDW Plt Count Lymph % (Auto) [place] % (Auto) Lymph # (Auto) [place] # (Auto) Baso # (Auto) Seg Neutrophils % Seg Neuts % (Manual) Lymphocytes % (Manual) Monocytes % (Manual) Nucleated RBC % Seg Neutrophils # Seg Neutrophils # Man Lymphocytes # (Manual) Monocytes # (Manual) PT INR APTT Fibrinogen D-Dimer ABG pH POC ABG pCO2 POC ABG pO2 ABG pO2 ABG HCO3 ABG Base Excess ABG Hemoglobin ABG Oxyhemoglobin ABG Sodium ABG Potassium ABG Chloride ABG Glucose VBG pH Oxyhemoglobin Carboxyhemoglobin Sodium Potassium Chloride Carbon Dioxide BUN Creatinine Glucose POC Glucose 116 H 108 H 126 H Random Insulin C-Peptide Lactic Acid Calcium Ionized Calcium Phosphorus Magnesium AST ALT Alkaline Phosphatase Lactate Dehydrogenase NT-Pro-B Natriuret Pep Total Protein Albumin Arterial Blood Glucose Arterial Blood Ionized Calcium Urine pH Urine WBC (Auto) U Epithel Cells (Auto) Vancomycin Trough Phenytoin Crossmatch 01/27/21 01/28/21 01/28/21 17:01 06:24 11:41 WBC RBC Hgb Hct MCV MCH MCHC RDW Plt Count Lymph % (Auto) [place] % (Auto) Lymph # (Auto) [place] # (Auto) Baso # (Auto) Seg Neutrophils % Seg Neuts % (Manual) Lymphocytes % (Manual) Monocytes % (Manual) Nucleated RBC % Seg Neutrophils # Seg Neutrophils # Man Lymphocytes # (Manual) Monocytes # (Manual) PT INR APTT Fibrinogen D-Dimer ABG pH POC ABG pCO2 POC ABG pO2 ABG pO2 ABG HCO3 ABG Base Excess ABG Hemoglobin ABG Oxyhemoglobin ABG Sodium ABG Potassium ABG Chloride ABG Glucose VBG pH Oxyhemoglobin Carboxyhemoglobin Sodium Potassium Chloride Carbon Dioxide BUN Creatinine Glucose POC Glucose 113 H 112 H 127 H Random Insulin C-Peptide Lactic Acid Calcium Ionized Calcium Phosphorus Magnesium AST ALT Alkaline Phosphatase Lactate Dehydrogenase NT-Pro-B Natriuret Pep Total Protein Albumin Arterial Blood Glucose Arterial Blood Ionized Calcium Urine pH Urine WBC (Auto) U Epithel Cells (Auto) Vancomycin Trough Phenytoin Crossmatch 01/28/21 01/29/21 01/29/21 17:44 05:47 12:04 WBC RBC 5.27 H Hgb Hct MCV 75 L MCH 24 L MCHC RDW Plt Count Lymph % (Auto) [place] % (Auto) 10.3 H Lymph # (Auto) [place] # (Auto) Baso # (Auto) Seg Neutrophils % Seg Neuts % (Manual) Lymphocytes % (Manual) Monocytes % (Manual) Nucleated RBC % Seg Neutrophils # Seg Neutrophils # Man Lymphocytes # (Manual) Monocytes # (Manual) PT INR APTT Fibrinogen D-Dimer ABG pH POC ABG pCO2 POC ABG pO2 ABG pO2 ABG HCO3 ABG Base Excess ABG Hemoglobin ABG Oxyhemoglobin ABG Sodium ABG Potassium ABG Chloride ABG Glucose VBG pH Oxyhemoglobin Carboxyhemoglobin Sodium Potassium Chloride Carbon Dioxide BUN Creatinine Glucose POC Glucose 108 H 107 H Random Insulin C-Peptide Lactic Acid Calcium Ionized Calcium Phosphorus Magnesium AST ALT Alkaline Phosphatase Lactate Dehydrogenase NT-Pro-B Natriuret Pep Total Protein Albumin Arterial Blood Glucose Arterial Blood Ionized Calcium Urine pH Urine WBC (Auto) U Epithel Cells (Auto) Vancomycin Trough Phenytoin Crossmatch 01/29/21 01/31/21 02/01/21 23:01 16:55 01:01 WBC RBC Hgb Hct MCV MCH MCHC RDW Plt Count Lymph % (Auto) [place] % (Auto) Lymph # (Auto) [place] # (Auto) Baso # (Auto) Seg Neutrophils % Seg Neuts % (Manual) Lymphocytes % (Manual) Monocytes % (Manual) Nucleated RBC % Seg Neutrophils # Seg Neutrophils # Man Lymphocytes # (Manual) Monocytes # (Manual) PT INR APTT Fibrinogen D-Dimer ABG pH POC ABG pCO2 POC ABG pO2 ABG pO2 ABG HCO3 ABG Base Excess ABG Hemoglobin ABG Oxyhemoglobin ABG Sodium ABG Potassium ABG Chloride ABG Glucose VBG pH Oxyhemoglobin Carboxyhemoglobin Sodium Potassium Chloride Carbon Dioxide BUN Creatinine Glucose POC Glucose 108 H 110 H 113 H Random Insulin C-Peptide Lactic Acid Calcium Ionized Calcium Phosphorus Magnesium AST ALT Alkaline Phosphatase Lactate Dehydrogenase NT-Pro-B Natriuret Pep Total Protein Albumin Arterial Blood Glucose Arterial Blood Ionized Calcium Urine pH Urine WBC (Auto) U Epithel Cells (Auto) Vancomycin Trough Phenytoin Crossmatch 02/03/21 02/03/21 02/06/21 06:52 07:17 06:42 WBC RBC Hgb Hct MCV MCH MCHC RDW Plt Count Lymph % (Auto) [place] % (Auto) Lymph # (Auto) [place] # (Auto) Baso # (Auto) Seg Neutrophils % Seg Neuts % (Manual) Lymphocytes % (Manual) Monocytes % (Manual) Nucleated RBC % Seg Neutrophils # Seg Neutrophils # Man Lymphocytes # (Manual) Monocytes # (Manual) PT INR APTT Fibrinogen D-Dimer ABG pH POC ABG pCO2 POC ABG pO2 ABG pO2 ABG HCO3 ABG Base Excess ABG Hemoglobin ABG Oxyhemoglobin ABG Sodium ABG Potassium ABG Chloride ABG Glucose VBG pH Oxyhemoglobin Carboxyhemoglobin Sodium Potassium Chloride Carbon Dioxide BUN Creatinine 0.5 L Glucose POC Glucose 68 L 112 H Random Insulin C-Peptide Lactic Acid Calcium Ionized Calcium Phosphorus Magnesium AST ALT Alkaline Phosphatase Lactate Dehydrogenase NT-Pro-B Natriuret Pep Total Protein Albumin Arterial Blood Glucose Arterial Blood Ionized Calcium Urine pH Urine WBC (Auto) U Epithel Cells (Auto) Vancomycin Trough Phenytoin Crossmatch 02/06/21 02/07/21 02/07/21 23:32 11:49 16:47 WBC RBC Hgb Hct MCV MCH MCHC RDW Plt Count Lymph % (Auto) [place] % (Auto) Lymph # (Auto) [place] # (Auto) Baso # (Auto) Seg Neutrophils % Seg Neuts % (Manual) Lymphocytes % (Manual) Monocytes % (Manual) Nucleated RBC % Seg Neutrophils # Seg Neutrophils # Man Lymphocytes # (Manual) Monocytes # (Manual) PT INR APTT Fibrinogen D-Dimer ABG pH POC ABG pCO2 POC ABG pO2 ABG pO2 ABG HCO3 ABG Base Excess ABG Hemoglobin ABG Oxyhemoglobin ABG Sodium ABG Potassium ABG Chloride ABG Glucose VBG pH Oxyhemoglobin Carboxyhemoglobin Sodium Potassium Chloride Carbon Dioxide BUN Creatinine Glucose POC Glucose 113 H 109 H 106 H Random Insulin C-Peptide Lactic Acid Calcium Ionized Calcium Phosphorus Magnesium AST ALT Alkaline Phosphatase Lactate Dehydrogenase NT-Pro-B Natriuret Pep Total Protein Albumin Arterial Blood Glucose Arterial Blood Ionized Calcium Urine pH Urine WBC (Auto) U Epithel Cells (Auto) Vancomycin Trough Phenytoin Crossmatch 02/07/21 02/08/21 02/08/21 22:59 06:17 06:38 WBC RBC Hgb Hct MCV MCH MCHC RDW Plt Count Lymph % (Auto) [place] % (Auto) Lymph # (Auto) [place] # (Auto) Baso # (Auto) Seg Neutrophils % Seg Neuts % (Manual) Lymphocytes % (Manual) Monocytes % (Manual) Nucleated RBC % Seg Neutrophils # Seg Neutrophils # Man Lymphocytes # (Manual) Monocytes # (Manual) PT INR APTT Fibrinogen D-Dimer ABG pH POC ABG pCO2 POC ABG pO2 ABG pO2 ABG HCO3 ABG Base Excess ABG Hemoglobin ABG Oxyhemoglobin ABG Sodium ABG Potassium ABG Chloride ABG Glucose VBG pH Oxyhemoglobin Carboxyhemoglobin Sodium 132 L Potassium Chloride 94.2 L Carbon Dioxide BUN Creatinine 0.5 L Glucose 101 H POC Glucose 106 H 110 H Random Insulin C-Peptide Lactic Acid Calcium Ionized Calcium Phosphorus Magnesium AST ALT Alkaline Phosphatase Lactate Dehydrogenase NT-Pro-B Natriuret Pep Total Protein Albumin Arterial Blood Glucose Arterial Blood Ionized Calcium Urine pH Urine WBC (Auto) U Epithel Cells (Auto) Vancomycin Trough Phenytoin Crossmatch 02/08/21 02/09/21 02/09/21 12:51 00:03 06:27 WBC RBC Hgb Hct MCV MCH MCHC RDW Plt Count Lymph % (Auto) [place] % (Auto) Lymph # (Auto) [place] # (Auto) Baso # (Auto) Seg Neutrophils % Seg Neuts % (Manual) Lymphocytes % (Manual) Monocytes % (Manual) Nucleated RBC % Seg Neutrophils # Seg Neutrophils # Man Lymphocytes # (Manual) Monocytes # (Manual) PT INR APTT Fibrinogen D-Dimer ABG pH POC ABG pCO2 POC ABG pO2 ABG pO2 ABG HCO3 ABG Base Excess ABG Hemoglobin ABG Oxyhemoglobin ABG Sodium ABG Potassium ABG Chloride ABG Glucose VBG pH Oxyhemoglobin Carboxyhemoglobin Sodium Potassium Chloride Carbon Dioxide BUN Creatinine Glucose POC Glucose 109 H 139 H 106 H Random Insulin C-Peptide Lactic Acid Calcium Ionized Calcium Phosphorus Magnesium AST ALT Alkaline Phosphatase Lactate Dehydrogenase NT-Pro-B Natriuret Pep Total Protein Albumin Arterial Blood Glucose Arterial Blood Ionized Calcium Urine pH Urine WBC (Auto) U Epithel Cells (Auto) Vancomycin Trough Phenytoin Crossmatch 02/09/21 02/09/21 02/09/21 10:59 10:59 11:50 WBC RBC 5.37 H Hgb Hct MCV 73 L MCH 25 L MCHC RDW Plt Count Lymph % (Auto) [place] % (Auto) Lymph # (Auto) [place] # (Auto) Baso # (Auto) Seg Neutrophils % Seg Neuts % (Manual) Lymphocytes % (Manual) Monocytes % (Manual) 13.0 H Nucleated RBC % Seg Neutrophils # Seg Neutrophils # Man Lymphocytes # (Manual) Monocytes # (Manual) PT INR APTT Fibrinogen D-Dimer ABG pH POC ABG pCO2 POC ABG pO2 ABG pO2 ABG HCO3 ABG Base Excess ABG Hemoglobin ABG Oxyhemoglobin ABG Sodium ABG Potassium ABG Chloride ABG Glucose VBG pH Oxyhemoglobin Carboxyhemoglobin Sodium 133 L Potassium Chloride 96.9 L Carbon Dioxide 20 L BUN Creatinine 0.5 L Glucose 104 H POC Glucose 120 H Random Insulin C-Peptide Lactic Acid Calcium Ionized Calcium Phosphorus Magnesium AST ALT Alkaline Phosphatase Lactate Dehydrogenase NT-Pro-B Natriuret Pep Total Protein Albumin Arterial Blood Glucose Arterial Blood Ionized Calcium Urine pH Urine WBC (Auto) U Epithel Cells (Auto) Vancomycin Trough Phenytoin Crossmatch 02/09/21 02/09/21 02/11/21 17:35 23:25 06:26 WBC RBC Hgb Hct MCV MCH MCHC RDW Plt Count Lymph % (Auto) [place] % (Auto) Lymph # (Auto) [place] # (Auto) Baso # (Auto) Seg Neutrophils % Seg Neuts % (Manual) Lymphocytes % (Manual) Monocytes % (Manual) Nucleated RBC % Seg Neutrophils # Seg Neutrophils # Man Lymphocytes # (Manual) Monocytes # (Manual) PT INR APTT Fibrinogen D-Dimer ABG pH POC ABG pCO2 POC ABG pO2 ABG pO2 ABG HCO3 ABG Base Excess ABG Hemoglobin ABG Oxyhemoglobin ABG Sodium ABG Potassium ABG Chloride ABG Glucose VBG pH Oxyhemoglobin Carboxyhemoglobin Sodium Potassium Chloride Carbon Dioxide BUN Creatinine Glucose POC Glucose 115 H 145 H 113 H Random Insulin C-Peptide Lactic Acid Calcium Ionized Calcium Phosphorus Magnesium AST ALT Alkaline Phosphatase Lactate Dehydrogenase NT-Pro-B Natriuret Pep Total Protein Albumin Arterial Blood Glucose Arterial Blood Ionized Calcium Urine pH Urine WBC (Auto) U Epithel Cells (Auto) Vancomycin Trough Phenytoin Crossmatch 02/11/21 02/11/21 02/11/21 11:35 16:15 17:04 WBC RBC 5.10 H Hgb Hct MCV 74 L MCH 24 L MCHC RDW Plt Count Lymph % (Auto) [place] % (Auto) 13.2 H Lymph # (Auto) [place] # (Auto) 1.1 H Baso # (Auto) Seg Neutrophils % Seg Neuts % (Manual) Lymphocytes % (Manual) Monocytes % (Manual) Nucleated RBC % Seg Neutrophils # Seg Neutrophils # Man Lymphocytes # (Manual) Monocytes # (Manual) PT INR APTT Fibrinogen D-Dimer ABG pH POC ABG pCO2 POC ABG pO2 ABG pO2 ABG HCO3 ABG Base Excess ABG Hemoglobin ABG Oxyhemoglobin ABG Sodium ABG Potassium ABG Chloride ABG Glucose VBG pH Oxyhemoglobin Carboxyhemoglobin Sodium Potassium Chloride Carbon Dioxide BUN Creatinine Glucose POC Glucose 117 H 117 H Random Insulin C-Peptide Lactic Acid Calcium Ionized Calcium Phosphorus Magnesium AST ALT Alkaline Phosphatase Lactate Dehydrogenase NT-Pro-B Natriuret Pep Total Protein Albumin Arterial Blood Glucose Arterial Blood Ionized Calcium Urine pH Urine WBC (Auto) U Epithel Cells (Auto) Vancomycin Trough Phenytoin Crossmatch 02/11/21 02/12/21 02/12/21 22:10 04:09 04:09 WBC RBC Hgb Hct MCV 74 L MCH 23 L MCHC RDW Plt Count Lymph % (Auto) [place] % (Auto) Lymph # (Auto) [place] # (Auto) Baso # (Auto) Seg Neutrophils % Seg Neuts % (Manual) Lymphocytes % (Manual) Monocytes % (Manual) Nucleated RBC % Seg Neutrophils # Seg Neutrophils # Man Lymphocytes # (Manual) Monocytes # (Manual) PT INR APTT Fibrinogen D-Dimer ABG pH POC ABG pCO2 POC ABG pO2 ABG pO2 ABG HCO3 ABG Base Excess ABG Hemoglobin ABG Oxyhemoglobin ABG Sodium ABG Potassium ABG Chloride ABG Glucose VBG pH Oxyhemoglobin Carboxyhemoglobin Sodium Potassium Chloride Carbon Dioxide BUN Creatinine 0.5 L Glucose 107 H POC Glucose 132 H Random Insulin C-Peptide Lactic Acid Calcium Ionized Calcium Phosphorus Magnesium AST ALT Alkaline Phosphatase Lactate Dehydrogenase NT-Pro-B Natriuret Pep Total Protein Albumin Arterial Blood Glucose Arterial Blood Ionized Calcium Urine pH Urine WBC (Auto) U Epithel Cells (Auto) Vancomycin Trough Phenytoin Crossmatch 02/13/21 02/14/21 02/14/21 05:16 00:52 13:16 WBC RBC Hgb Hct MCV MCH MCHC RDW Plt Count Lymph % (Auto) [place] % (Auto) Lymph # (Auto) [place] # (Auto) Baso # (Auto) Seg Neutrophils % Seg Neuts % (Manual) Lymphocytes % (Manual) Monocytes % (Manual) Nucleated RBC % Seg Neutrophils # Seg Neutrophils # Man Lymphocytes # (Manual) Monocytes # (Manual) PT INR APTT Fibrinogen D-Dimer ABG pH POC ABG pCO2 POC ABG pO2 ABG pO2 ABG HCO3 ABG Base Excess ABG Hemoglobin ABG Oxyhemoglobin ABG Sodium ABG Potassium ABG Chloride ABG Glucose VBG pH Oxyhemoglobin Carboxyhemoglobin Sodium Potassium Chloride Carbon Dioxide BUN Creatinine Glucose POC Glucose 106 H 115 H 107 H Random Insulin C-Peptide Lactic Acid Calcium Ionized Calcium Phosphorus Magnesium AST ALT Alkaline Phosphatase Lactate Dehydrogenase NT-Pro-B Natriuret Pep Total Protein Albumin Arterial Blood Glucose Arterial Blood Ionized Calcium Urine pH Urine WBC (Auto) U Epithel Cells (Auto) Vancomycin Trough Phenytoin Crossmatch
[2021-02-15] MEDS: LIP THERAPY VASELINE TP PRN (12:31)
--- NOTE | 2021-02-16 08:01 | Progress Note ---
Assessment and Plan Critical care statement The high probability of a clinically significant, sudden or life threatening deterioration of the [MULTIPLE ORGAN] system(s) required my full and direct attention, intervention and personal management. The aggregate critical care time was [33] minutes. This time is in addition to time spent performing reported procedures but includes the following: [X] Data Review and interpretation [X] Patient assessment and monitoring of vital signs [X] Documentation [X] Medication orders and management Assessment and Plan 30 y/o female patient with Eclampsia/help syndrome, s/p emergent section with DIC, hemorrhage, supracervical abdominal hysterectomy, acute respiratory failure , tracheostomy on T-piece with morbid obesity, s/p cardiac arrest 12/08/2019 status post CPR per ACLS, acute hypoxic brain injury Acute kidney injury improved, severe shock requiring pressors, DIC septic shock improved, history of C. difficile colitis completed treatment with vancomycin. Tracheostomy on T-piece, continues to require 5 L of oxygen. Herpetic flareup, ID started treatment with antibiotics, patient is waiting for SNF placement DC planning per case management Assessment and plan: --Persistent hypoglycemia; patient is requiring continuous D10 W infusion CT abdomen done to rule out insulinoma, CT abdomen report negative for pancreatic tumor We will closely monitor --Cardiac arrest; 10/07/2020 ,status post CPR --Acute hypoxic brain injury; Supportive care, closely monitor --Acute hypoxic respiratory failure: Tracheostomy on T-piece , today on 4.5 L oxygen, saturating 100% Supportive care, Pulmonary critical following COVID-19 negative C. difficile positive; Patient on contact isolation Completed treatment --Afebrile: Blood, urine, tracheal aspirate cultures New cultures negative to date Monitor off antibiotics Closely monitor --Sepsis; received antibiotics Continue to monitor off antibiotics ID following --COVID-19 test negative; 10/08/2020 --C. difficile colitis test; positive; 10/16/2020 --Acute metabolic encephalopathy --Acute kidney injury; vasomotor nephropathy Resolved, renal function within normal limits, closely monitor --Shock; monitor of pressors Blood pressures reasonable level --DIC; sepsis, septic shock, resolved --History of preeclampsia; / hemorrhage Status post hysterectomy --History of C. difficile colitis; completed oral vancomycin --DVT/SVT and right upper extremity Very poor prognosis, Consults recommendations noted and appreciated We will closely monitor the patient and adjust management as needed Plan of care reviewed with the patient's nurse. Waiting for jail facility placement Subjective Date of service: 02/15/21 Principal diagnosis: Eclampsia/HELLP Syndrome, [place], DIC; s/p , s/p supracervical hyst Objective - Exam Narrative Exam: Patient with tracheostomy - Constitutional Vitals: Vital Signs - 12hr 02/15/21 02/15/21 02/16/21 21:02 21:56 04:49 Temperature 98.2 F 98.3 F Pulse Rate 92 H 101 H Respiratory 20 18 18 Rate Blood Pressure 103/62 105/64 O2 Sat by Pulse 100 94 Oximetry General appearance: Present: no acute distress, well-nourished - EENT Eyes: PERRL, EOM intact ENT: hearing intact, clear oral mucosa Ears: bilateral: normal - Neck Neck: supple, normal ROM - Respiratory Respiratory effort: normal Respiratory: bilateral: CTA - Breasts Breasts: normal - Cardiovascular Rhythm: regular Heart Sounds: Present: S1 & S2. Absent: gallop, rub Extremities: pulses intact, No edema, normal color, Full ROM - Gastrointestinal General gastrointestinal: Present: soft, non-tender, non-distended, normal bowel sounds - Genitourinary Female genitourinary: normal - Integumentary Integumentary: clear, warm, dry - Musculoskeletal Musculoskeletal: 1, strength equal bilaterally - Neurologic Neurologic: moves all extremities, other (Unresponsive) - Psychiatric Psychiatric: other (Unresponsive) - Labs CBC & Chem 7: 02/12/21 04:09 02/12/21 04:09 Labs: Abnormal lab results 02/15/21 02/15/21 Range/Units 12:01 16:32 POC Glucose 113 H 110 H (70-105) mg/dL HEART Score - HEART Score Age: < 45 Risk factors: 1-2 risk factors - Critical Actions Critical Actions: >7 pts:50-65% risk of adverse cardiac event. Early invasive measures
[2021-02-16] MEDS: METOPROLOL TARTRATE 25 MG TAB PO SCH ×2 (09:44→22:20)
[2021-02-16] MEDS: FAMOTIDINE 20 MG TAB PO SCH ×2 (09:44→22:21)
[2021-02-16] MEDS: ENOXAPARIN 40 MG/0.4 ML INJ SUB-Q SCH (09:44)
[2021-02-16] MEDS: LIP THERAPY VASELINE TP PRN (09:56)
--- NOTE | 2021-02-16 23:46 | Progress Note ---
Assessment and Plan Assessment and Plan 30 y/o female patient with Eclampsia/help syndrome, s/p emergent section with DIC, hemorrhage, supracervical abdominal hysterectomy, acute respiratory failure , tracheostomy on T-piece with morbid obesity, s/p cardiac arrest 12/08/2019 status post CPR per ACLS, acute hypoxic brain injury Acute kidney injury improved, severe shock requiring pressors, DIC septic shock improved, history of C. difficile colitis completed treatment with vancomycin. Tracheostomy on T-piece, continues to require 5 L of oxygen. Herpetic flareup, ID started treatment with antibiotics, patient is waiting for SNF placement DC planning per case management Assessment and plan: --Persistent hypoglycemia; patient is requiring continuous D10 W infusion CT abdomen done to rule out insulinoma, CT abdomen report negative for pancreatic tumor We will closely monitor --Cardiac arrest; 10/07/2020 ,status post CPR --Acute hypoxic brain injury; Supportive care, closely monitor --Acute hypoxic respiratory failure: Tracheostomy on T-piece , today on 4.5 L oxygen, saturating 100% Supportive care, Pulmonary critical following COVID-19 negative C. difficile positive; Patient on contact isolation Completed treatment --Afebrile: Blood, urine, tracheal aspirate cultures New cultures negative to date Monitor off antibiotics Closely monitor --Sepsis; received antibiotics Continue to monitor off antibiotics ID following --COVID-19 test negative; 10/08/2020 --C. difficile colitis test; positive; 10/16/2020 --Acute metabolic encephalopathy --Acute kidney injury; vasomotor nephropathy Resolved, renal function within normal limits, closely monitor --Shock; monitor of pressors Blood pressures reasonable level --DIC; sepsis, septic shock, resolved --History of preeclampsia; / hemorrhage Status post hysterectomy --History of C. difficile colitis; completed oral vancomycin --DVT/SVT and right upper extremity Very poor prognosis, Consults recommendations noted and appreciated We will closely monitor the patient and adjust management as needed Plan of care reviewed with the patient's nurse. Waiting for senior living facility placement Subjective Date of service: 02/16/21 Principal diagnosis: Eclampsia/HELLP Syndrome, ADOLPH, DIC; s/p , s/p supracervical hyst Interval history: 30 y/o female patient with Eclampsia/help syndrome, s/p emergent section with DIC, hemorrhage, supracervical abdominal hysterectomy, acute respiratory failure , tracheostomy on T-piece with morbid obesity, s/p cardiac arrest 12/08/2019 status post CPR per ACLS, acute hypoxic brain injury Acute kidney injury improved, severe shock requiring pressors, DIC septic shock improved, history of C. difficile colitis on vancomycin. Tracheostomy on T-piece, continues to require 5 L of oxygen. Brief history; 30 year old -Angolan female CHE 10/25/20 at 36w5d who presents with seizures in triage on 10/02/20. Pt was not able to provide history but per pt's , she presented to the hospital to return a 24 hour urine specimen for analysis. She then suddenly reported that she did not feel good. She was taken to labor and delivery and shortly after arrival, she began seizing. During this time, a code met was called because the patient became hypoxic. She was then noted to be without a pulse. Chest compressions were started immediately, and the patient was emergently taken to the operating room for delivery of the fetus. Off note, This patient has had care at [facility] with coma nagement by [facility] since 11 wks complicated by ADHD, morbid obesity, generalized anxiety disorder, panic attacks, chronic narcotic use, fibromyalgia, GERD, Irritable Bowel Syndrome, Migraines, h/o endometrial ablation and ovarian vein embolization, genital herpes, insomnia, LGA fetus, nausea and vomiting, polyhydramnios, quad screen positive for Down's Syndrome, and previous x 3. She is GBS negative. , Patient tracheostomy on ventilatory support, unable to wean, continue supportive care poor prognosis 11:30: Pt brought to L&D triage for evaluation of possible labor. Pt accompanied by her spouse. Pt spouse poor historian; unable to obtain history- allergies at this time. Pt taken from registration to triage area via WC. Pt unresponsive, actively seizing with snorous respirations. miner, Kassy, called and requesting assistance. 11:35: Multiple staff at bedside. Pt 02 sat 67% on nonrebreather, unable to read BP . Yifan Theodore CRNA, at bedside for intubation and assistance with IV insertion. INT attempt by multiple RNs unsuccessful at this time. 11:42: Pt being bagged by KORIN, 02% 79%. No pulse palpated, compressions on at this time; bharati young called and Dr. Newberry preparing OR for emergent c/s. 11:44: Continued compressions on stretcher while transporting pt to OR 1. Pt being bagged with jaw thrust manuever in place by KORIN Stringer student. 11:45: Arrival to OR 1. Dr. Newberry and Dr. Portillo present for emergent c/s. Code team arrived for continued care. patient revived and c/s done Patient has been bleeding from C/s site followed by supracervical hysterectomy for severe bleeding, Patient transfused multiple units of PRBC, Patient in DIC. Patient transferred to the ICU Hospital course; 10/03. Patient seen and examined at bedside this morning. Patient is no nresponsive and mechanically ventilated. On pressors. Labs reviewed-has leukocytosis, anemia, thrombocytopenia, ADOLPH and lactic acidosis. Started on IV antibiotics to cover possible sepsis secondary to DIC. Hematology oncology recommendations appreciated-needs additional cryoprecipitate and FFP. Monitor D-dimer, fibrinogen and frequent labs. Nephrology consulted for lactic acidosis and ADOLPH. 10/04. Remains mechanically ventilated. Kevin antibiotics. Labs shows improved acidosis - lactic acid 3.5. Hb drop noted. Getting transfused 2 units PRBCs. Platelet count is ~40k. Continue to monitor labs closely. Critical care team on board. 10/05; xray reviewed, concerning for multifocal infilrate, likely underlying Pneumonia, will add ID consult to assist with management of this critically ill patient, start tube feed, closely monitor renal system 10/06: Resumed care, remains on mechanical ventilation. No active bleeding, H&H stable. Continue to monitor CBC and BMP. Continue IV antibiotic for underlying pneumonia. Follow critical care and ID recommendation. 10/07: Remains on mechanical ventilation. No active bleeding, H&H stable. Critical care following, wean off ventilation as tolerated. 10/08: Patient had another cardiac arrest last night. Remains on mechanical ventilation, update family. Continue supportive care -poor prognosis 10/09: Called patient mother and discussed about patient care and management. Answered all question to best of my knowledge and family satisfaction. Patient remains on mechanical ventilation, cardiac arrest x2 so far. Critically sick, poor prognosis 10/10: remains on mechanical ventilation. h/h stable, no active bleeding. monitor CBC/BMP 10/11: WBC trended up with diarrhea, started on vancomycin po. remains on MV, off pressor, tolerating TF 10/12: remains on MV, off pressor, tolerating TF. called family for update but unable to reach, could not leave message as it was full. cont supportive care, wean off vent as tolerated. 10/13/2020; patient is on mechanical ventilation, tolerating tube feeding. Patient has labored breathing. Neuro was consulted and recommend MRI. Patient is on Precedex. Rectal tube in place. 10/14/2020; patient is on mechanical ventilation, Precedex. Patient had fever and blood culture ordered. Patient is on IV vancomycin per ID recommendation. Neuro consulted and recommend MRI. Continue to monitor. Prognosis is guarded. 10/15/2020; patient is on mechanical ventilation, Precedex. Patient had fever and blood culture ordered. Patient is on IV vancomycin per ID recommendation. Neuro consulted and recommend MRI. Continue to monitor. Prognosis is guarded. 10/17: Remains with C.DIFF and Bactermia, Poor prognosis. No purposeful movement. MRI and EEG discussed with Intensvisit, Continue aggressive BP control. 10/18: Blood pressure better controlled MRI done 10/15 shows mild improvement in edema. We will continue to monitor mother was at bedside yesterday. Nursing documentation trach and PEG discussed with the mother including goals of care. She is still in denial about the gravity of her daughters her condition which is understandable considering her age. Continue aggressive management at this time. Await for bacteremia to clear by ID before placing PICC line. 10/19: Patient for possible PEG and Trach, ID following, repeat cultures remain negative. Poor prognosis 10/20: Pt noted to DVT and SVT in the RUE, Vascular consult and will also obtain Hematology for possible considering changing in Anticoagulation. CONTINUE TO MONITOR H/H and PLT. Family updated by [employer]. Heparin gtt started. Will check CBC and BMP 10/21: Continue supporive care, Diarrhea now resolving, But still with persistent Fever, May need repeat CT/AP per ID, still with profused Encephalopathy 10/22: Continue supportive care, weaning, awaiting repeat Imaging. FOLLOW Fever curve. Enoxparin restarted 10/23: Continue supportive care, wean as tolerated. 10/24; Started on CPAP trial, discussed with pulmonary, still with diarrhea. 10/25: Patients seen and examined, no clinical changes, still with diarrhea. ?meaningful recovery. 10/26: Clinically unchanged, continue CPAP trial, Will discuss with Neurology about re-evaluation, ?Need for repeat CT head. ?PRESS considering initial elevated BP, now stable. 10/27; tracheostomy on vent, weaning trials, vital signs noted, poor prognosis 10/28; unable to wean, tracheostomy on vent. Sepsis. Continue current management. Consults and recommendations noted and appreciated 10/30/2020;Patient on T-piece 5 L of oxygen not in acute distress, noncommunicative 11/02/2020; patient on T-piece 5 L of oxygen 11/03/2020; patient's fever slightly improved low-grade, continue current management, remains on T-piece with 5 L of oxygen 11/04/2020; T-max last 24 hours 100.3 F, new cultures negative to date, monitor off antibiotics Patient is off Levophed, blood pressures reasonable level, tracheostomy on T- piece 3 to 5 L nasal cannula oxygen 11/05/2020; tracheostomy on T-piece patient remains on 5 L of nasal cannula oxygen, unresponsive severe hypoxic brain injury I called patient's mother Ms. Pamela Bassett as well as patient's spouse Mr. Danilo Dimas at [phone] unable to reach them Left voicemail on Ms. Pamela Bassettz phone and encouraged him to call back 11/06/2020; I tried to call again today Ms. Pamela Bassett to discuss patient's condition and treatment plan and update consultants recommendations and patient's prognosis., unable to reach her 11/07/20 Will try LTAC/Hospice 11/08/20 Same condition 11/09/2020 Same condition 11/10/2020; family conference was held by case management yesterday 11/09/2020, family decided and agreed for SNF placement 11/11/2020; patient seen and examined, clinically no change tracheostomy on 5 L of nasal cannula oxygen, hemodynamically and clinically stable for discharge To LTAC versus SNF, DC planning per case management 11/12/2020; clinically no change, continue current management, DC planning per case management possible SNF placement 11/13/2020; patient is receiving herpes flareup treatment per ID 11/14/2020; clinically no change, awaiting SNF placement 11/15/2020; clinically no change, tracheostomy on T-piece on 5 L oxygen, awaiting placement 11/16/2020; patient awaiting placement 11/18/2020; abdominal CT scan negative for insulinoma or pancreatic tumor ,clinically no change Awaiting SNF placement 11/19/2020; remains on 4 L of oxygen tracheostomy via T-piece, awaiting SNF placement 11/20/2020 Awaiting SNF placement 11/21/2020 Waiting for SNF placement 11/22/2020 Waiting for placement 11/23/2020 Waiting for placement 11/24/2020 through 12/24/2020 Patient waiting for placement 11/27/2020; patient remains hypoglycemic on D10 W IV fluids, CT abdomen negative for insulinoma Remains stable awaiting SNF placement, tracheostomy on 5 L oxygen via T-piece 11/28/2020; awaiting SNF placement 11/29/2020; patient remains unresponsive, tracheostomy on T-piece, on 4 to 5 L of oxygen Wean as tolerated, DC planning per case management possible SNF placement 11/30/2020; awaiting SNF placement 12/02/2020; awaiting placement, stable for discharge 12/03/2020; clinically no change, awaiting placement, tracheostomy on T-piece, anoxic brain injury 12/04/2020 Patient has anoxic encephalopathy with anoxic brain brain injury Awaiting placement Subjective Date of service: 02/25/21 Principal diagnosis: Eclampsia/HELLP Syndrome, ADOLPH, DIC; s/p , s/p supracervical hyst Interval history: 30 y/o female patient with Eclampsia/help syndrome, s/p emergent section with DIC, hemorrhage, supracervical abdominal hysterectomy, acute respiratory failure , tracheostomy on T-piece with morbid obesity, s/p cardiac arrest 12/08/2019 status post CPR per ACLS, acute hypoxic brain injury Acute kidney injury improved, severe shock requiring pressors, DIC septic shock improved, history of C. difficile colitis on vancomycin. Tracheostomy on T-piece, continues to require 5 L of oxygen. Brief history; 30 year old -[place] female CHE 10/25/20 at 36w5d who presents with seizures in triage on 10/02/20. Pt was not able to provide history but per pt's , she presented to the hospital to return a 24 hour urine specimen for analysis. She then suddenly reported that she did not feel good. She was taken to labor and delivery and shortly after arrival, she began seizing. During this time, a code met was called because the patient became hypoxic. She was then noted to be without a pulse. Chest compressions were started immediately, and the patient was emergently taken to the operating room for delivery of the fetus. Off note, This patient has had care at [facility] with comanagement by [facility] since 11 wks complicated by ADHD, morbid obesity, generalized anxiety disorder, panic attacks, chronic narcotic use, fibromyalgia, GERD, Irritable Bowel Syndrome, Migraines, h/o endometrial ablation and ovarian vein embolization, genital herpes, insomnia, LGA fetus, nausea and vomiting, polyhydramnios, quad screen positive for Down's Syndrome, and previous x 3. She is GBS negative. , Patient tracheostomy on ventilatory support, unable to wean, continue supportive care poor prognosis 11:30: Pt brought to L&D triage for evaluation of possible labor. Pt accompanied by her spouse. Pt spouse poor historian; unable to obtain history- allergies at this time. Pt taken from registration to triage area via WC. Pt unresponsive, actively seizing with snorous respirations. miner, Kassy, called and reque sting assistance. 11:35: Multiple staff at bedside. Pt 02 sat 67% on nonrebreather, unable to read BP . Yifan Theodore CRNA, at bedside for intubation and assistance with IV insertion. INT attempt by multiple RNs unsuccessful at this time. 11:42: Pt being bagged by KORIN, 02% 79%. No pulse palpated, compressions on at this time; bharati young called and Dr. Newberry preparing OR for emergent c/s. 11:44: Continued compressions on stretcher while transporting pt to OR 1. Pt being bagged with jaw thrust manuever in place by KORIN Stringer student. 11:45: Arrival to OR 1. Dr. Newberry and Dr. Portillo present for emergent c/s. Code team arrived for continued care. patient revived and c/s done Patient has been bleeding from C/s site followed by supracervical hysterectomy for severe bleeding, Patient transfused multiple units of PRBC, Patient in DIC. Patient transferred to the ICU Hospital course; 10/03. Patient seen and examined at bedside this morning. Patient is nonresponsive and mechanically ventilated. On pressors. Labs reviewed-has leukocytosis, anemia, thrombocytopenia, ADOLPH and lactic acidosis. Started on IV antibiotics to cover possible sepsis secondary to DIC. Hematology oncology r ecommendations appreciated-needs additional cryoprecipitate and FFP. Monitor D- dimer, fibrinogen and frequent labs. Nephrology consulted for lactic acidosis and ADOLPH. 10/04. Remains mechanically ventilated. [place] antibiotics. Labs shows improved acidosis - lactic acid 3.5. Hb drop noted. Getting transfused 2 units PRBCs. Platelet count is ~40k. Continue to monitor labs closely. Critical care team on board. 10/05; xray reviewed, concerning for multifocal infilrate, likely underlying Pneumonia, will add ID consult to assist with management of this critically ill patient, start tube feed, closely monitor renal system 10/06: Resumed care, remains on mechanical ventilation. No active bleeding, H&H stable. Continue to monitor CBC and BMP. Continue IV antibiotic for underlying pneumonia. Follow critical care and ID recommendation. 10/07: Remains on mechanical ventilation. No active bleeding, H&H stable. Critical care following, wean off ventilation as tolerated. 10/08: Patient had another cardiac arrest last night. Remains on mechanical ventilation, update family. Continue supportive care -poor prognosis 10/09: Called patient mother and discussed about patient care and management. Answered all question to best of my knowledge and family satisfaction. Patient remains on mechanical ventilation, cardiac arrest x2 so far. Critically sick, poor prognosis 10/10: remains on mechanical ventilation. h/h stable, no active bleeding. monitor CBC/BMP 10/11: WBC trended up with diarrhea, started on vancomycin po. remains on MV, off pressor, tolerating TF 10/12: remains on MV, off pressor, tolerating TF. called family for update but unable to reach, could not leave message as it was full. cont supportive care, wean off vent as tolerated. 10/13/2020; patient is on mechanical ventilation, tolerating tube feeding. Patient has labored breathing. Neuro was consulted and recommend MRI. Patient is on Precedex. Rectal tube in place. 10/14/2020; patient is on mechanical ventilation, Precedex. Patient had fever and blood culture ordered. Patient is on IV vancomycin per ID recommendation. Neuro consulted and recommend MRI. Continue to monitor. Prognosis is guarded. 10/15/2020; patient is on mechanical ventilation, Precedex. Patient had fever and blood culture ordered. Patient is on IV vancomycin per ID recommendation. Neuro consulted and recommend MRI. Continue to monitor. Prognosis is guarded. 10/17: Remains with C.DIFF and Bactermia, Poor prognosis. No purposeful movement. MRI and EEG discussed with Intensvisit, Continue aggressive BP control. 10/18: Blood pressure better controlled MRI done 10/15 shows mild improvement in edema. We will continue to monitor mother was at bedside yesterday. Nursing documentation trach and PEG discussed with the mother including goals of care. She is still in denial about the gravity of her daughters her condition which is understandable considering her age. Continue aggressive management at this time. Await for bacteremia to clear by ID before placing PICC line. 10/19: Patient for possible PEG and Trach, ID following, repeat cultures remain negative. Poor prognosis 10/20: Pt noted to DVT and SVT in the RUE, Vascular consult and will also obtain Hematology for possible considering changing in Anticoagulation. CONTINUE TO MONITOR H/H and PLT. Family updated by [employer]. Heparin gtt started. Will c heck CBC and BMP 10/21: Continue supporive care, Diarrhea now resolving, But still with persistent Fever, May need repeat CT/AP per ID, still with profused Encephalopathy 10/22: Continue supportive care, weaning, awaiting repeat Imaging. FOLLOW Fever curve. Enoxparin restarted 10/23: Continue supportive care, wean as tolerated. 10/24; Started on CPAP trial, discussed with pulmonary, still with diarrhea. 10/25: Patients seen and examined, no clinical changes, still with diarrhea. ?meaningful recovery. 10/26: Clinically unchanged, continue CPAP trial, Will discuss with Neurology about re-evaluation, ?Need for repeat CT head. ?PRESS considering initial elevated BP, now stable. 10/27; tracheostomy on vent, weaning trials, vital signs noted, poor prognosis 10/28; unable to wean, tracheostomy on vent. Sepsis. Continue current management. Consults and recommendations noted and appreciated 10/30/2020;Patient on T-piece 5 L of oxygen not in acute distress, noncommun icative 11/02/2020; patient on T-piece 5 L of oxygen 11/03/2020; patient's fever slightly improved low-grade, continue current management, remains on T-piece with 5 L of oxygen 11/04/2020; T-max last 24 hours 100.3 F, new cultures negative to date, monitor off antibiotics Patient is off Levophed, blood pressures reasonable level, tracheostomy on T- piece 3 to 5 L nasal cannula oxygen 11/05/2020; tracheostomy on T-piece patient remains on 5 L of nasal cannula oxygen, unresponsive severe hypoxic brain injury I called patient's mother Ms. Pamela Bassett as well as patient's spouse Mr. Danilo Dimas at [phone] unable to reach them Left voicemail on Ms. Pamela Bassettz phone and encouraged him to call back 11/06/2020; I tried to call again today Ms. Pamela Bassett to discuss patient's condition and treatment plan and update consultants recommendations and patient's prognosis., unable to reach her 11/07/20 Will try LTAC/Hospice 11/08/20 Same condition 11/09/2020 Same condition 11/10/2020; family conference was held by case management yesterday 11/09/2020, family decided and agreed for SNF placement 11/11/2020; patient seen and examined, clinically no change tracheostomy on 5 L of nasal cannula oxygen, hemodynamically and clinically stable for discharge To LTAC versus SNF, DC planning per case management 11/12/2020; clinically no change, continue current management, DC planning per case management possible SNF placement 11/13/2020; patient is receiving herpes flareup treatment per ID 11/14/2020; clinically no change, awaiting SNF placement 11/15/2020; clinically no change, tracheostomy on T-piece on 5 L oxygen, awaiting placement 11/16/2020; patient awaiting placement 11/18/2020; abdominal CT scan negative for insulinoma or pancreatic tumor ,clinically no change Awaiting SNF placement 11/19/2020; remains on 4 L of oxygen tracheostomy via T-piece, awaiting SNF placement 11/20/2020 Awaiting SNF placement 11/21/2020 Waiting for SNF placement 11/22/2020 Waiting for placement 11/23/2020 Waiting for placement 11/24/2020 through 12/24/2020 Patient waiting for placement 11/27/2020; patient remains hypoglycemic on D10 W IV fluids, CT abdomen negative for insulinoma Remains stable awaiting SNF placement, tracheostomy on 5 L oxygen via T-piece 11/28/2020; awaiting SNF placement 11/29/2020; patient remains unresponsive, tracheostomy on T-piece, on 4 to 5 L of oxygen Wean as tolerated, DC planning per case management possible SNF placement 11/30/2020; awaiting SNF placement 12/02/2020; awaiting placement, stable for discharge 12/03/2020; clinically no change, awaiting placement, tracheostomy on T-piece, anoxic brain injury 12/04/2020 Patient has anoxic encephalopathy with anoxic brain brain injury Awaiting placement 12/05/2020; anoxic brain injury, awaiting placement. 12/06/20; anoxic brain injury. Awaiting placement. 12/07/2020; anoxic brain injury, awaiting placement. 12/09/2020; anoxic brain injury, awaiting placement. 12/10/2020; patient had episodes of fever overnight. CBC, BMP, blood culture, UA and chest x-ray ordered, will follow and manage accordingly. Urinalysis is suggestive of UTI and I put the patient on ceftriaxone, order urine culture. Chest x-ray is normal. 12/11/2020; patient is on ceftriaxone day 2 for UTI. We will continue to follow urine culture. 12/12/2020. Day #3 of Rocephin for UTI. We will continue for 2 more days while she is here. Present UTI. 12/13/2020. Day #4 of Rocephin for UTI. Patient remains on 50% with tracheostomy. Remains unresponsive with evidence of anoxic encephalopathy unable to make needs known. 12/14/2020. Day #5 of Rocephin for UTI completed today. Remains encephalopathic unable to make needs known. Remains on 50% unable to decrease oxygen via tracheostomy. Overall prognosis remains extremely poor. 32: Continue to monitor. Stop and monitor antibiotics at this time. Continue to wean oxygen as tolerated. Wean oxygen as tolerated. Case management working on placement. 12/16: Continue supportive care aspiration precautions. Awaiting placement discussion. Monitor fever curve. Prognosis remains poor no evidence of neurological recovery as of today 3: Continue supportive care, check labs and chest xray. Still monitor off antibiotics. Monitor Sodium level 12/18: Patient remains with intermittent low grade fever, reviewed EEG from September again, consistent for Ischemic Hypoxic Encephalopathy, patient with decorticating posturing type presentation. Will discuss with cargo mate to optimize diet so we can discontinue D5. CXR with no abnormality. Discussed extensively with the nursing staff at bedside CXR IMPRESSION: 1. No acute findings. 12/19: No clinical change 12/20: No clinical change, now off abx, monitor, discussed her medications with our pharmacist I believe that her posture and rigidity is likely from underlying anoxic encephalopathy. Continue to monitor and await placement decision. Continue aggressive suctioning. Plan discussed in detail with the nursing staff 12/21: Continue supportive care. Will give 500 cc bolus of fluid today to replace insensible losses. Tachycardia appears to be improving. Blood pressure precludes adjusting cardiac meds. Still awaiting placement from case management. Plan discussed in detail with the nursing staff 12/22. Continue support supportive care. Tracheostomy and PEG in place. Remains nonresponsive. Awaiting placement. 12/23. Continue support supportive care. Tracheostomy and PEG in place. Remains nonresponsive. Awaiting placement. Remains tachycardic. Decrease dose of lasix. Will try low dose metoprolol. Monitor BP closely 12/24. Continue support supportive care. Tracheostomy and PEG in place. Remains nonresponsive. Awaiting placement. Heart rate slightly better. Continue to monitor BP closely 12/25. Continue support supportive care. Tracheostomy and PEG in place. Remains nonresponsive. Awaiting placement. 12/26. Continue support supportive care. Tracheostomy and PEG in place. Remains nonresponsive. Awaiting placement 12/27. Continue support supportive care. Tracheostomy and PEG in place. Remains nonresponsive. Awaiting placement 12/28. Had fever yesterday. Blood culture drawn. UA - UTI - started on antibiotics. Now tracheal aspirate is growing GN rods. 12/29: Continue IV antibiotics, continue supportive care. Since admission patient has shown minimal or no chance of neurological recovery. Need 24/7 assistance. Currently on trach and PEG, nonverbal. Waiting on SNF placement. Discussed with case filler today. 12/30: Continue IV antibiotics for UTI, continue supportive care. Pending placement 12/31: continue supportive care. continue supportive care. Pending placement 01/01: continue supportive care. Pending placement. cont Iv abx for UTI till 01/04 01/02: Continue supportive care, pending placement. Sodium level slightly elevated, will start hypotonic fluid. Continue antibiotics till 01/04 01/03; cont hypotonic fluid, increase free water with TF for hypernatremia, follow BMP. cont supportive care. pending placement. cont cefepime. recx blood 01/04: resolved hyponatremia, cont supportive care, pending placement. Last day of supplement today. 01/05: Continue supportive care, pending placement. Monitor H&H and fever curve off antibiotic. 01/06; monitor off abx, suction as needed, Continue supportive care, pending placement. 01/07: Discharge pending on placement, vitals stable. Continue supportive care 01/08: Discharge pending on placement, vitals stable. Continue supportive care. stop lasix, increase metoprolol to 25mg BID for ST. 01/09 patient resting with eyes closed. Opens eyes to tactile stimulus, has a blink reflex, does not follow simple commands, has a T-collar / G-tube Lab results reviewed, low-grade fever, 01/10 Eyes open, does not follow simple commands, no acute events overnight 01/11 no acute events overnight, Waiting for placement 01/12 No acute events overnight. Patient awaiting for placement 01/13. No new issues. Awaiting placement 01/14. No new issues. Awaiting placement. 01/15. No new issues. Awaiting placement. 01/16. No new issues. Patient remain stable. Awaiting placement. Check juju ntenance labs. 01/17. Routine maintenance labs were ordered and are still pending. Await placement. 01/18. Patient with low-grade fever past 24-48 hrs. WBC within normal limits. Check chest x-ray, urinalysis and consider blood cultures. Continue tracheostomy care, secretion control and airway management. Patient currently with PEG and tube feedings at 60 cc an hour. Nutritional support and aspiration precautions. 01/19. Temperature 100.7 overnight. Continue to monitor closely. Continue t racheostomy care, secretion control and airway management. Patient currently with PEG and tube feedings at 60 cc an hour. Nutritional support and aspiration precautions. 01/20. Continue to monitor closely. Continue tracheostomy care, secretion control and airway management. Patient currently with PEG and tube feedings at 60 cc an hour. Nutritional support and aspiration precautions. 01/21. Afebrile overnight. Continue to monitor closely. Continue tracheostomy care, secretion control and airway management. Patient currently with PEG and tube feedings at 60 cc an hour. Nutritional support and aspiration precautions. 01/22. Continue to monitor closely. Continue tracheostomy care, secretion control and airway management. Patient currently with PEG and tube feedings at 60 cc an hour. Nutritional support and aspiration precautions. 01/23. Continue tracheostomy care, secretion control and airway management. Patient currently with PEG and tube feedings at 60 cc an hour. Nutritional support and aspiration precautions. Will get routine labs tomorrow. 01/24. Labs reviewed. No abnormalities. Continue tracheostomy care, secretion control and airway management. Patient currently with PEG and tube feedings at 60 cc an hour. Nutritional support and aspiration precautions. 01/25. Temp 100.6. More sleepy today. Will get chest xray, blood culture, urinalysis, sputum cultures. Will start on empirical abx. 01/26: Vitals noted, slightly tachycardic. Follow culture work-up, continue supportive care. 01/27: Spiking low-grade temp, negative UA, sputum culture and recent blood cultures also negative. Continue to monitor off antibiotics. Continue supportive care. Pending placement. 01/28: cont to spike low grade temp, negative UA, sputum culture and recent blood cultures also negative. Continue to monitor off antibiotics. will order fpr sinus xry. Continue supportive care. Pending placement. 01/29: Continue to follow clinically, intermittently spiking low-grade temp, all recent culture work is negative, negative UA, normal respiratory jaylan 1 tracheal aspirate. Vitals noted and currently stable. Pending placement 01/30: Clinically unchanged, continue to monitor vitals, continue supportive cares. Pending placement. Discussed plan of care with RN at the bedside. 01/31 - TODATE: cont supportive care, pending placement. monitor vitals carefully. Discussed with family at the bedside. 02/06. Patient afebrile today. Continue trach care. Secretions stable today. Culture data negative so far. Awaiting placement. 02/07. Awaiting placement awaiting family member to evaluate papers. Continue trach care secretions stable. Pending placement 02/09: Intermittent fever, ?drug related, will check cxr and also labs. No new complaints. 02/10: Patient's trach dislodged today. Nevertheless respiratory status is intact attempt to reinsert was unsuccessful will monitor discussed with nursing staff to pay close attention to the patient. Considering that this was not a planned decannulation I will start the patient on continuous pulse ox until full evaluation was done by pulmonary. 02/13/2021 Vital signs stable Unresponsive secondary to anoxic encephalopathy Awaiting placement 02/14/2021 Awaiting placement 02/15/2021 Anoxic encephalopathy Awaiting placement 02/16/2021 Anoxic encephalopathy Awaiting placement Objective - Exam Narrative Exam: Patient with tracheostomy - Constitutional Vitals: Vital Signs - 12hr 02/16/21 02/16/21 02/16/21 15:58 21:06 21:45 Temperature 99.3 F 99.2 F Pulse Rate 100 H 118 H Respiratory 16 16 Rate Blood Pressure 110/70 118/78 O2 Sat by Pulse 98 97 98 Oximetry 02/16/21 02/16/21 22:00 22:20 Temperature Pulse Rate 118 H Respiratory 20 Rate Blood Pressure 118/78 O2 Sat by Pulse Oximetry General appearance: Present: no acute distress, well-nourished - EENT Eyes: PERRL, EOM intact ENT: hearing intact, clear oral mucosa, other (Tracheostomy in place) Ears: bilateral: normal - Neck Neck: supple, normal ROM - Respiratory Respiratory effort: normal Respiratory: bilateral: CTA - Breasts Breasts: normal - Cardiovascular Rhythm: regular Heart Sounds: Present: S1 & S2. Absent: gallop, rub Extremities: pulses intact, No edema, normal color, Full ROM - Gastrointestinal General gastrointestinal: Present: soft, non-tender, non-distended, normal bowel sounds - Genitourinary Female genitourinary: normal - Integumentary Integumentary: clear, warm, dry - Musculoskeletal Musculoskeletal: 1, strength equal bilaterally - Neurologic Neurologic: moves all extremities, other (Unresponsive) - Psychiatric Psychiatric: other (Unresponsive) - Labs CBC & Chem 7: 02/12/21 04:09 02/12/21 04:09 Labs: Abnormal lab results 02/16/21 02/16/21 Range/Units 05:54 11:31 POC Glucose 107 H 107 H (70-105) mg/dL HEART Score - HEART Score Age: < 45 Risk factors: 1-2 risk factors - Critical Actions Critical Actions: >7 pts:50-65% risk of adverse cardiac event. Early invasive measures
--- NOTE | 2021-02-16 23:47 | Progress Note ---
Assessment and Plan Assessment and Plan 30 y/o female patient with Eclampsia/help syndrome, s/p emergent section with DIC, hemorrhage, supracervical abdominal hysterectomy, acute respiratory failure , tracheostomy on T-piece with morbid obesity, s/p cardiac arrest 12/08/2019 status post CPR per ACLS, acute hypoxic brain injury Acute kidney injury improved, severe shock requiring pressors, DIC septic shock improved, history of C. difficile colitis completed treatment with vancomycin. Tracheostomy on T-piece, continues to require 5 L of oxygen. Herpetic flareup, ID started treatment with antibiotics, patient is waiting for SNF placement DC planning per case management Assessment and plan: --Persistent hypoglycemia; patient is requiring continuous D10 W infusion CT abdomen done to rule out insulinoma, CT abdomen report negative for pancreatic tumor We will closely monitor --Cardiac arrest; 10/07/2020 ,status post CPR --Acute hypoxic brain injury; Supportive care, closely monitor --Acute hypoxic respiratory failure: Tracheostomy on T-piece , today on 4.5 L oxygen, saturating 100% Supportive care, Pulmonary critical following COVID-19 negative C. difficile positive; Patient on contact isolation Completed treatment --Afebrile: Blood, urine, tracheal aspirate cultures New cultures negative to date Monitor off antibiotics Closely monitor --Sepsis; received antibiotics Continue to monitor off antibiotics ID following --COVID-19 test negative; 10/08/2020 --C. difficile colitis test; positive; 10/16/2020 --Acute metabolic encephalopathy --Acute kidney injury; vasomotor nephropathy Resolved, renal function within normal limits, closely monitor --Shock; monitor of pressors Blood pressures reasonable level --DIC; sepsis, septic shock, resolved --History of preeclampsia; / hemorrhage Status post hysterectomy --History of C. difficile colitis; completed oral vancomycin --DVT/SVT and right upper extremity Very poor prognosis, Consults recommendations noted and appreciated We will closely monitor the patient and adjust management as needed Plan of care reviewed with the patient's nurse. Waiting for senior living facility placement Subjective Date of service: 02/13/21 Principal diagnosis: Eclampsia/HELLP Syndrome, ADOLPH, DIC; s/p , s/p supracervical hyst Interval history: 30 y/o female patient with Eclampsia/help syndrome, s/p emergent section with DIC, hemorrhage, supracervical abdominal hysterectomy, acute respiratory failure , tracheostomy on T-piece with morbid obesity, s/p cardiac arrest 12/08/2019 status post CPR per ACLS, acute hypoxic brain injury Acute kidney injury improved, severe shock requiring pressors, DIC septic shock improved, history of C. difficile colitis on vancomycin. Tracheostomy on T-piece, continues to require 5 L of oxygen. Brief history; 30 year old -[place] female CHE 10/25/20 at 36w5d who presents with seizures in triage on 10/02/20. Pt was not able to provide history but per pt's , she presented to the hospital to return a 24 hour urine specimen for analysis. She then suddenly reported that she did not feel good. She was taken to labor and delivery and shortly after arrival, she began seizing. During this time, a code met was called because the patient became hypoxic. She was then noted to be without a pulse. Chest compressions were started immediately, and the patient was emergently taken to the operating room for delivery of the fetus. Off note, This patient has had care at [facility] with coma nagement by [facility] since 11 wks complicated by ADHD, morbid obesity, generalized anxiety disorder, panic attacks, chronic narcotic use, fibromyalgia, GERD, Irritable Bowel Syndrome, Migraines, h/o endometrial ablation and ovarian vein embolization, genital herpes, insomnia, LGA fetus, nausea and vomiting, polyhydramnios, quad screen positive for Down's Syndrome, and previous x 3. She is GBS negative. , Patient tracheostomy on ventilatory support, unable to wean, continue supportive care poor prognosis 11:30: Pt brought to L&D triage for evaluation of possible labor. Pt accompanied by her spouse. Pt spouse poor historian; unable to obtain history- allergies at this time. Pt taken from registration to triage area via WC. Pt unresponsive, actively seizing with snorous respirations. chocolate temperer, Kassy, called and requesting assistance. 11:35: Multiple staff at bedside. Pt 02 sat 67% on nonrebreather, unable to read BP . Yifan Theodore CRNA, at bedside for intubation and assistance with IV insertion. INT attempt by multiple RNs unsuccessful at this time. 11:42: Pt being bagged by KORIN, 02% 79%. No pulse palpated, compressions on at this time; bharati young called and Dr. Newberry preparing OR for emergent c/s. 11:44: Continued compressions on stretcher while transporting pt to OR 1. Pt being bagged with jaw thrust manuever in place by KORIN Stringer student. 11:45: Arrival to OR 1. Dr. Newberry and Dr. Portillo present for emergent c/s. Code team arrived for continued care. patient revived and c/s done Patient has been bleeding from C/s site followed by supracervical hysterectomy for severe bleeding, Patient transfused multiple units of PRBC, Patient in DIC. Patient transferred to the ICU Hospital course; 10/03. Patient seen and examined at bedside this morning. Patient is no nresponsive and mechanically ventilated. On pressors. Labs reviewed-has leukocytosis, anemia, thrombocytopenia, ADOLPH and lactic acidosis. Started on IV antibiotics to cover possible sepsis secondary to DIC. Hematology oncology recommendations appreciated-needs additional cryoprecipitate and FFP. Monitor D-dimer, fibrinogen and frequent labs. Nephrology consulted for lactic acidosis and ADOLPH. 10/04. Remains mechanically ventilated. Kevin antibiotics. Labs shows improved acidosis - lactic acid 3.5. Hb drop noted. Getting transfused 2 units PRBCs. Platelet count is ~40k. Continue to monitor labs closely. Critical care team on board. 10/05; xray reviewed, concerning for multifocal infilrate, likely underlying Pneumonia, will add ID consult to assist with management of this critically ill patient, start tube feed, closely monitor renal system 10/06: Resumed care, remains on mechanical ventilation. No active bleeding, H&H stable. Continue to monitor CBC and BMP. Continue IV antibiotic for underlying pneumonia. Follow critical care and ID recommendation. 10/07: Remains on mechanical ventilation. No active bleeding, H&H stable. Critical care following, wean off ventilation as tolerated. 10/08: Patient had another cardiac arrest last night. Remains on mechanical ventilation, update family. Continue supportive care -poor prognosis 10/09: Called patient mother and discussed about patient care and management. Answered all question to best of my knowledge and family satisfaction. Patient remains on mechanical ventilation, cardiac arrest x2 so far. Critically sick, poor prognosis 10/10: remains on mechanical ventilation. h/h stable, no active bleeding. monitor CBC/BMP 10/11: WBC trended up with diarrhea, started on vancomycin po. remains on MV, off pressor, tolerating TF 10/12: remains on MV, off pressor, tolerating TF. called family for update but unable to reach, could not leave message as it was full. cont supportive care, wean off vent as tolerated. 10/13/2020; patient is on mechanical ventilation, tolerating tube feeding. Patient has labored breathing. Neuro was consulted and recommend MRI. Patient is on Precedex. Rectal tube in place. 10/14/2020; patient is on mechanical ventilation, Precedex. Patient had fever and blood culture ordered. Patient is on IV vancomycin per ID recommendation. Neuro consulted and recommend MRI. Continue to monitor. Prognosis is guarded. 10/15/2020; patient is on mechanical ventilation, Precedex. Patient had fever and blood culture ordered. Patient is on IV vancomycin per ID recommendation. Neuro consulted and recommend MRI. Continue to monitor. Prognosis is guarded. 10/17: Remains with C.DIFF and Bactermia, Poor prognosis. No purposeful movement. MRI and EEG discussed with Intensvisit, Continue aggressive BP control. 10/18: Blood pressure better controlled MRI done 10/15 shows mild improvement in edema. We will continue to monitor mother was at bedside yesterday. Nursing documentation trach and PEG discussed with the mother including goals of care. She is still in denial about the gravity of her daughters her condition which is understandable considering her age. Continue aggressive management at this time. Await for bacteremia to clear by ID before placing PICC line. 10/19: Patient for possible PEG and Trach, ID following, repeat cultures remain negative. Poor prognosis 10/20: Pt noted to DVT and SVT in the RUE, Vascular consult and will also obtain Hematology for possible considering changing in Anticoagulation. CONTINUE TO MONITOR H/H and PLT. Family updated by Intensivit. Heparin gtt started. Will check CBC and BMP 10/21: Continue supporive care, Diarrhea now resolving, But still with persistent Fever, May need repeat CT/AP per ID, still with profused Encephalopathy 10/22: Continue supportive care, weaning, awaiting repeat Imaging. FOLLOW Fever curve. Enoxparin restarted 10/23: Continue supportive care, wean as tolerated. 10/24; Started on CPAP trial, discussed with pulmonary, still with diarrhea. 10/25: Patients seen and examined, no clinical changes, still with diarrhea. ?meaningful recovery. 10/26: Clinically unchanged, continue CPAP trial, Will discuss with Neurology about re-evaluation, ?Need for repeat CT head. ?PRESS considering initial elevated BP, now stable. 10/27; tracheostomy on vent, weaning trials, vital signs noted, poor prognosis 10/28; unable to wean, tracheostomy on vent. Sepsis. Continue current management. Consults and recommendations noted and appreciated 10/30/2020;Patient on T-piece 5 L of oxygen not in acute distress, noncommunicative 11/02/2020; patient on T-piece 5 L of oxygen 11/03/2020; patient's fever slightly improved low-grade, continue current management, remains on T-piece with 5 L of oxygen 11/04/2020; T-max last 24 hours 100.3 F, new cultures negative to date, monitor off antibiotics Patient is off Levophed, blood pressures reasonable level, tracheostomy on T- piece 3 to 5 L nasal cannula oxygen 11/05/2020; tracheostomy on T-piece patient remains on 5 L of nasal cannula oxygen, unresponsive severe hypoxic brain injury I called patient's mother Ms. Pamela Bassett as well as patient's spouse Mr. Danilo Dimas at [phone] unable to reach them Left voicemail on Ms. Pamela Bassettz phone and encouraged him to call back 11/06/2020; I tried to call again today Ms. Pamela Bassett to discuss patient's condition and treatment plan and update consultants recommendations and patient's prognosis., unable to reach her 11/07/20 Will try LTAC/Hospice 11/08/20 Same condition 11/09/2020 Same condition 11/10/2020; family conference was held by case management yesterday 11/09/2020, family decided and agreed for SNF placement 11/11/2020; patient seen and examined, clinically no change tracheostomy on 5 L of nasal cannula oxygen, hemodynamically and clinically stable for discharge To LTAC versus SNF, DC planning per case management 11/12/2020; clinically no change, continue current management, DC planning per case management possible SNF placement 11/13/2020; patient is receiving herpes flareup treatment per ID 11/14/2020; clinically no change, awaiting SNF placement 11/15/2020; clinically no change, tracheostomy on T-piece on 5 L oxygen, awaiting placement 11/16/2020; patient awaiting placement 11/18/2020; abdominal CT scan negative for insulinoma or pancreatic tumor ,clinically no change Awaiting SNF placement 11/19/2020; remains on 4 L of oxygen tracheostomy via T-piece, awaiting SNF placement 11/20/2020 Awaiting SNF placement 11/21/2020 Waiting for SNF placement 11/22/2020 Waiting for placement 11/23/2020 Waiting for placement 11/24/2020 through 12/24/2020 Patient waiting for placement 11/27/2020; patient remains hypoglycemic on D10 W IV fluids, CT abdomen negative for insulinoma Remains stable awaiting SNF placement, tracheostomy on 5 L oxygen via T-piece 11/28/2020; awaiting SNF placement 11/29/2020; patient remains unresponsive, tracheostomy on T-piece, on 4 to 5 L of oxygen Wean as tolerated, DC planning per case management possible SNF placement 11/30/2020; awaiting SNF placement 12/02/2020; awaiting placement, stable for discharge 12/03/2020; clinically no change, awaiting placement, tracheostomy on T-piece, anoxic brain injury 12/04/2020 Patient has anoxic encephalopathy with anoxic brain brain injury Awaiting placement 12/03/20 11:30: Pt brought to L&D triage for evaluation of possible labor. Pt accompanied by her spouse. Pt spouse poor historian; unable to obtain history- allergies at this time. Pt taken from registration to triage area via WC. Pt unresponsive, actively seizing with snorous respirations. chocolate temperer, Kassy, called and requesting assistance. 11:35: Multiple staff at bedside. Pt 02 sat 67% on nonrebreather, unable to read BP at this time. Yifan Theodore CRNA, at bedside for intubation and assistance w ith IV insertion. INT attempt by multiple RNs unsuccessful at this time. 11:42: Pt being bagged by KORIN, 02% 79%. No pulse palpated, compressions started at this time; bharati young called and Dr. Newberry preparing OR for emergent c/s. 11:44: Continued compressions on stretcher while transporting pt to OR 1. Pt being bagged with jaw thrust manuever in place by KORIN Stringer student. 11:45: Arrival to OR 1. Dr. Newberry and Dr. Portillo present for emergent c/s. Code team arrived for continued care. patient revived and c/s done Patient has been bleeding from C/s site followed by supracervical hysterectomy for severe bleeding Patient transfused multiple units of PRBC, Patient in DIC. Transferred to the ICU 10/03. Patient seen and examined at bedside this morning. Patient is nonresponsive and mechanically ventilated. On pressors. Labs reviewed-has leukocytosis, anemia, thrombocytopenia, ADOLPH and lactic acidosis. Started on IV antibiotics to cover possible sepsis secondary to DIC. Hematology oncology recommendations appreciated-needs additional cryoprecipitate and FFP. Monitor D-dimer, fibrinogen and frequent labs. Nephrology consulted for lactic acidosis and ADOLPH. 10/04. Remains mechanically ventilated. Perry antibiotics. Labs shows improved acidosis - lactic acid 3.5. Hb drop noted. Getting transfused 2 units PRBCs. Platelet count is ~40k. Continue to monitor labs closely. Critical care team on board. 10/05; xray reviewed, concerning for multifocal infilrate, likely underlying Pneumonia, will add ID consult to assist with management of this critically ill patient, start tube feed, closely monitor renal system 10/06: Resumed care, remains on mechanical ventilation. No active bleeding, H&H stable. Continue to monitor CBC and BMP. Continue IV antibiotic for underlying pneumonia. Follow critical care and ID recommendation. 10/07: Remains on mechanical ventilation. No active bleeding, H&H stable. Critical care following, wean off ventilation as tolerated. 10/08: Patient had another cardiac arrest last night. Remains on mechanical ventilation, update family. Continue supportive care -poor prognosis 10/09: Called patient mother and discussed about patient care and management. Answered all question to best of my knowledge and family satisfaction. Patient remains on mechanical ventilation, cardiac arrest x2 so far. Critically sick, poor prognosis 10/10: remains on mechanical ventilation. h/h stable, no active bleeding. monitor CBC/BMP 10/11: WBC trended up with diarrhea, started on vancomycin po. remains on MV, off pressor, tolerating TF 10/12: remains on MV, off pressor, tolerating TF. called family for update but unable to reach, could not leave message as it was full. cont supportive care, wean off vent as tolerated. 10/13/2020; patient is on mechanical ventilation, tolerating tube feeding. Patient has labored breathing. Neuro was consulted and recommend MRI. Patient is on Precedex. Rectal tube in place. 10/14/2020; patient is on mechanical ventilation, Precedex. Patient had fever and blood culture ordered. Patient is on IV vancomycin per ID recommendation. Neuro consulted and recommend MRI. Continue to monitor. Prognosis is guarded. 10/15/2020; patient is on mechanical ventilation, Precedex. Patient had fever and blood culture ordered. Patient is on IV vancomycin per ID recommendation. Neuro consulted and recommend MRI. Continue to monitor. Prognosis is guarded. 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 12/06/20; anoxic brain injury. Awaiting placement. 12/07/2020; anoxic brain injury, awaiting placement. 12/09/2020; anoxic brain injury, awaiting placement. 12/10/2020; patient had episodes of fever overnight. CBC, BMP, blood culture, UA and chest x-ray ordered, will follow and manage accordingly. Urinalysis is suggestive of UTI and I put the patient on ceftriaxone, order urine culture. Chest x-ray is normal. 12/11/2020; patient is on ceftriaxone day 2 for UTI. We will continue to follow urine culture. 12/12/2020. Day #3 of Rocephin for UTI. We will continue for 2 more days while she is here. Present UTI. 12/13/2020. Day #4 of Rocephin for UTI. Patient remains on 50% with tr acheostomy. Remains unresponsive with evidence of anoxic encephalopathy unable to make needs known. 12/14/2020. Day #5 of Rocephin for UTI completed today. Remains encephalopathic unable to make needs known. Remains on 50% unable to decrease oxygen via tracheostomy. Overall prognosis remains extremely poor. 30: Continue to monitor. Stop and monitor antibiotics at this time. Continue to wean oxygen as tolerated. Wean oxygen as tolerated. Case management working on placement. 12/16: Continue supportive care aspiration precautions. Awaiting placement discussion. Monitor fever curve. Prognosis remains poor no evidence of neurological recovery as of today 3/4: Continue supportive care, check labs and chest xray. Still monitor off antibiotics. Monitor Sodium level 12/18: Patient remains with intermittent low grade fever, reviewed EEG from September again, consistent for Ischemic Hypoxic Encephalopathy, patient with decorticating posturing type presentation. Will discuss with greaser helper to optimize diet so we can discontinue D5. CXR with no abnormality. Discussed extensively with the nursing staff at bedside CXR IMPRESSION: 1. No acute findings. 12/19: No clinical change 12/20: No clinical change, now off abx, monitor, discussed her medications with our pharmacist I believe that her posture and rigidity is likely from underlying anoxic encephalopathy. Continue to monitor and await placement decision. Continue aggressive suctioning. Plan discussed in detail with the nursing staff 12/21: Continue supportive care. Will give 500 cc bolus of fluid today to replace insensible losses. Tachycardia appears to be improving. Blood pressure precludes adjusting cardiac meds. Still awaiting placement from case management. Plan discussed in detail with the nursing staff 12/22. Continue support supportive care. Tracheostomy and PEG in place. Remains nonresponsive. Awaiting placement. 12/23. Continue support supportive care. Tracheostomy and PEG in place. Remains nonresponsive. Awaiting placement. Remains tachycardic. Decrease dose of lasix. Will try low dose metoprolol. Monitor BP closely 12/24. Continue support supportive care. Tracheostomy and PEG in place. Remains nonresponsive. Awaiting placement. Heart rate slightly better. Continue to monitor BP closely 12/25. Continue support supportive care. Tracheostomy and PEG in place. Remains nonresponsive. Awaiting placement. 12/26. Continue support supportive care. Tracheostomy and PEG in place. Remains nonresponsive. Awaiting placement 12/27. Continue support supportive care. Tracheostomy and PEG in place. Remains nonresponsive. Awaiting placement 12/28. Had fever yesterday. Blood culture drawn. UA - UTI - started on antibiotics. Now tracheal aspirate is growing GN rods. 12/29: Continue IV antibiotics, continue supportive care. Since admission patient has shown minimal or no chance of neurological recovery. Need 24/7 assistance. Currently on trach and PEG, nonverbal. Waiting on SNF placement. Discussed with geriatric case manager today. 12/30: Continue IV antibiotics for UTI, continue supportive care. Pending placement 12/31: continue supportive care. continue supportive care. Pending placement 01/01: continue supportive care. Pending placement. cont Iv abx for UTI till 01/04 01/02: Continue supportive care, pending placement. Sodium level slightly elevated, will start hypotonic fluid. Continue antibiotics till 01/04 01/03; cont hypotonic fluid, increase free water with TF for hypernatremia, follow BMP. cont supportive care. pending placement. cont cefepime. recx blood 01/04: resolved hyponatremia, cont supportive care, pending placement. Last day of supplement today. 01/05: Continue supportive care, pending placement. Monitor H&H and fever curve off antibiotic. 01/06; monitor off abx, suction as needed, Continue supportive care, pending placement. 01/07: Discharge pending on placement, vitals stable. Continue supportive care 01/08: Discharge pending on placement, vitals stable. Continue supportive care. stop lasix, increase metoprolol to 25mg BID for ST. 01/09 patient resting with eyes closed. Opens eyes to tactile stimulus, has a blink reflex, does not follow simple commands, has a T-collar / G-tube Lab results reviewed, low-grade fever, 01/10 Eyes open, does not follow simple commands, no acute events overnight 01/11 no acute events overnight, Waiting for placement 01/12 No acute events overnight. Patient awaiting for placement 01/13. No new issues. Awaiting placement 01/14. No new issues. Awaiting placement. 01/15. No new issues. Awaiting placement. 01/16. No new issues. Patient remain stable. Awaiting placement. Check maintenance labs. 01/17. Routine maintenance labs were ordered and are still pending. Await placement. 01/18. Patient with low-grade fever past 24-48 hrs. WBC within normal limits. Check chest x-ray, urinalysis and consider blood cultures. Continue tracheostomy care, secretion control and airway management. Patient currently with PEG and tube feedings at 60 cc an hour. Nutritional support and aspiration precautions. 01/19. Temperature 100.7 overnight. Continue to monitor closely. Continue tracheostomy care, secretion control and airway management. Patient currently with PEG and tube feedings at 60 cc an hour. Nutritional support and aspiration precautions. 01/20. Continue to monitor closely. Continue tracheostomy care, secretion control and airway management. Patient currently with PEG and tube feedings at 60 cc an hour. Nutritional support and aspiration precautions. 01/21. Afebrile overnight. Continue to monitor closely. Continue tracheostomy care, secretion control and airway management. Patient currently with PEG and tube feedings at 60 cc an hour. Nutritional support and aspiration precautions. 01/22. Continue to monitor closely. Continue tracheostomy care, secretion control and airway management. Patient currently with PEG and tube feedings at 60 cc an hour. Nutritional support and aspiration precautions. 01/23. Continue tracheostomy care, secretion control and airway management. Patient currently with PEG and tube feedings at 60 cc an hour. Nutritional support and aspiration precautions. Will get routine labs tomorrow. 01/24. Labs reviewed. No abnormalities. Continue tracheostomy care, secretion control and airway management. Patient currently with PEG and tube feedings at 60 cc an hour. Nutritional support and aspiration precautions. 01/25. Temp 100.6. More sleepy today. Will get chest xray, blood culture, urinalysis, sputum cultures. Will start on empirical abx. 01/26: Vitals noted, slightly tachycardic. Follow culture work-up, continue miller pportive care. 01/27: Spiking low-grade temp, negative UA, sputum culture and recent blood cultures also negative. Continue to monitor off antibiotics. Continue supportive care. Pending placement. 01/28: cont to spike low grade temp, negative UA, sputum culture and recent blood cultures also negative. Continue to monitor off antibiotics. will order fpr sinus xry. Continue supportive care. Pending placement. 01/29: Continue to follow clinically, intermittently spiking low-grade temp, all recent culture work is negative, negative UA, normal respiratory jaylan 1 tracheal aspirate. Vitals noted and currently stable. Pending placement 01/30: Clinically unchanged, continue to monitor vitals, continue supportive cares. Pending placement. Discussed plan of care with RN at the bedside. 01/31 - TODATE: cont supportive care, pending placement. monitor vitals carefully. Discussed with family at the bedside. 02/06. Patient afebrile today. Continue trach care. Secretions stable today. Culture data negative so far. Awaiting placement. 02/07. Awaiting placement awaiting family member to evaluate papers. Continue trach care secretions stable. Pending placement 02/09: Intermittent fever, ?drug related, will check cxr and also labs. No new complaints. 02/10: Patient's trach dislodged today. Nevertheless respiratory status is intact attempt to reinsert was unsuccessful will monitor discussed with nursing staff to pay close attention to the patient. Considering that this was not a planned decannulation I will start the patient on continuous pulse ox until full evaluation was done by pulmonary. 02/13/2021 Vital signs stable Unresponsive secondary to anoxic encephalopathy Awaiting placement Objective - Exam Narrative Exam: Patient with tracheostomy - Constitutional Vitals: Vital Signs - 12hr 02/16/21 02/16/21 02/16/21 15:58 21:06 21:45 Temperature 99.3 F 99.2 F Pulse Rate 100 H 118 H Respiratory 16 16 Rate Blood Pressure 110/70 118/78 O2 Sat by Pulse 98 97 98 Oximetry 02/16/21 02/16/21 22:00 22:20 Temperature Pulse Rate 118 H Respiratory 20 Rate Blood Pressure 118/78 O2 Sat by Pulse Oximetry General appearance: Present: no acute distress, well-nourished - EENT Eyes: PERRL, EOM intact ENT: hearing intact, clear oral mucosa Ears: bilateral: normal - Neck Neck: supple, normal ROM - Respiratory Respiratory effort: normal Respiratory: bilateral: CTA - Breasts Breasts: normal - Cardiovascular Rhythm: regular Heart Sounds: Present: S1 & S2. Absent: gallop, rub Extremities: pulses intact, No edema, normal color, Full ROM - Gastrointestinal General gastrointestinal: Present: soft, non-tender, non-distended, normal bowel sounds - Genitourinary Female genitourinary: normal - Integumentary Integumentary: clear, warm, dry - Musculoskeletal Musculoskeletal: 1, strength equal bilaterally - Neurologic Neurologic: moves all extremities - Psychiatric Psychiatric: memory intact, appropriate mood/affect, intact judgment & insight - Labs CBC & Chem 7: 02/12/21 04:09 02/12/21 04:09 Labs: Abnormal lab results 02/16/21 02/16/21 Range/Units 05:54 11:31 POC Glucose 107 H 107 H (70-105) mg/dL HEART Score - HEART Score Age: < 45 Risk factors: 1-2 risk factors - Critical Actions Critical Actions: >7 pts:50-65% risk of adverse cardiac event. Early invasive measures
[2021-02-17] MEDS: ENOXAPARIN 40 MG/0.4 ML INJ SUB-Q SCH (09:36)
[2021-02-17] MEDS: METOPROLOL TARTRATE 25 MG TAB PO SCH ×2 (09:37→22:46)
[2021-02-17] MEDS: FAMOTIDINE 20 MG TAB PO SCH ×2 (09:37→22:46)
[2021-02-18] MEDS: ENOXAPARIN 40 MG/0.4 ML INJ SUB-Q SCH (10:49)
[2021-02-18] MEDS: FAMOTIDINE 20 MG TAB PO SCH ×2 (10:49→22:19)
[2021-02-18] MEDS: METOPROLOL TARTRATE 25 MG TAB PO SCH ×2 (10:50→22:18)
--- NOTE | 2021-02-19 07:34 | Progress Note ---
Assessment and Plan Assessment and Plan 30 y/o female patient with Eclampsia/help syndrome, s/p emergent section with DIC, hemorrhage, supracervical abdominal hysterectomy, acute respiratory failure , tracheostomy on T-piece with morbid obesity, s/p cardiac arrest 12/08/2019 status post CPR per ACLS, acute hypoxic brain injury Acute kidney injury improved, severe shock requiring pressors, DIC septic shock improved, history of C. difficile colitis completed treatment with vancomycin. Tracheostomy on T-piece, continues to require 5 L of oxygen. Herpetic flareup, ID started treatment with antibiotics, patient is waiting for SNF placement DC planning per case management Assessment and plan: --Persistent hypoglycemia; patient is requiring continuous D10 W infusion CT abdomen done to rule out insulinoma, CT abdomen report negative for pancreatic tumor We will closely monitor --Cardiac arrest; 10/07/2020 ,status post CPR --Acute hypoxic brain injury; Supportive care, closely monitor --Acute hypoxic respiratory failure: Tracheostomy on T-piece , today on 4.5 L oxygen, saturating 100% Supportive care, Pulmonary critical following COVID-19 negative C. difficile positive; Patient on contact isolation Completed treatment --Afebrile: Blood, urine, tracheal aspirate cultures New cultures negative to date Monitor off antibiotics Closely monitor --Sepsis; received antibiotics Continue to monitor off antibiotics ID following --COVID-19 test negative; 10/08/2020 --C. difficile colitis test; positive; 10/16/2020 --Acute metabolic encephalopathy --Acute kidney injury; vasomotor nephropathy Resolved, renal function within normal limits, closely monitor --Shock; monitor of pressors Blood pressures reasonable level --DIC; sepsis, septic shock, resolved --History of preeclampsia; / hemorrhage Status post hysterectomy --History of C. difficile colitis; completed oral vancomycin --DVT/SVT and right upper extremity Very poor prognosis, Consults recommendations noted and appreciated We will closely monitor the patient and adjust management as needed Plan of care reviewed with the patient's nurse. Waiting for residential facility placement Subjective Date of service: 02/18/21 Principal diagnosis: Eclampsia/HELLP Syndrome, ADOLPH, DIC; s/p , s/p supracervical hyst Interval history: 30 y/o female patient with Eclampsia/help syndrome, s/p emergent section with DIC, hemorrhage, supracervical abdominal hysterectomy, acute respiratory failure , tracheostomy on T-piece with morbid obesity, s/p cardiac arrest 12/08/2019 status post CPR per ACLS, acute hypoxic brain injury Acute kidney injury improved, severe shock requiring pressors, DIC septic shock improved, history of C. difficile colitis on vancomycin. Tracheostomy on T-piece, continues to require 5 L of oxygen. Brief history; 30 year old -Citizen Of [place] female CHE 10/25/20 at 36w5d who presents with seizures in triage on 10/02/20. Pt was not able to provide history but per pt's , she presented to the hospital to return a 24 hour urine specimen for analysis. She then suddenly reported that she did not feel good. She was taken to labor and delivery and shortly after arrival, she began seizing. During this time, a code met was called because the patient became hypoxic. She was then noted to be without a pulse. Chest compressions were started immediately, and the patient was emergently taken to the operating room for delivery of the fetus. Off note, This patient has had care at [facility] with coma nagement by [facility] since 11 wks complicated by ADHD, morbid obesity, generalized anxiety disorder, panic attacks, chronic narcotic use, fibromyalgia, GERD, Irritable Bowel Syndrome, Migraines, h/o endometrial ablation and ovarian vein embolization, genital herpes, insomnia, LGA fetus, nausea and vomiting, polyhydramnios, quad screen positive for Down's Syndrome, and previous x 3. She is GBS negative. , Patient tracheostomy on ventilatory support, unable to wean, continue supportive care poor prognosis 11:30: Pt brought to L&D triage for evaluation of possible labor. Pt accompanied by her spouse. Pt spouse poor historian; unable to obtain history- allergies at this time. Pt taken from registration to triage area via WC. Pt unresponsive, actively seizing with snorous respirations. weigher operator, Kassy, called and requesting assistance. 11:35: Multiple staff at bedside. Pt 02 sat 67% on nonrebreather, unable to read BP . Yifan Theodore CRNA, at bedside for intubation and assistance with IV insertion. INT attempt by multiple RNs unsuccessful at this time. 11:42: Pt being bagged by KORIN, 02% 79%. No pulse palpated, compressions on at this time; bharati young called and Dr. Newberry preparing OR for emergent c/s. 11:44: Continued compressions on stretcher while transporting pt to OR 1. Pt being bagged with jaw thrust manuever in place by KORIN Stringer student. 11:45: Arrival to OR 1. Dr. Newberry and Dr. Portillo present for emergent c/s. Code team arrived for continued care. patient revived and c/s done Patient has been bleeding from C/s site followed by supracervical hysterectomy for severe bleeding, Patient transfused multiple units of PRBC, Patient in DIC. Patient transferred to the ICU Hospital course; 10/03. Patient seen and examined at bedside this morning. Patient is no nresponsive and mechanically ventilated. On pressors. Labs reviewed-has leukocytosis, anemia, thrombocytopenia, ADOLPH and lactic acidosis. Started on IV antibiotics to cover possible sepsis secondary to DIC. Hematology oncology recommendations appreciated-needs additional cryoprecipitate and FFP. Monitor D-dimer, fibrinogen and frequent labs. Nephrology consulted for lactic acidosis and ADOLPH. 10/04. Remains mechanically ventilated. Kevin antibiotics. Labs shows improved acidosis - lactic acid 3.5. Hb drop noted. Getting transfused 2 units PRBCs. Platelet count is ~40k. Continue to monitor labs closely. Critical care team on board. 10/05; xray reviewed, concerning for multifocal infilrate, likely underlying Pneumonia, will add ID consult to assist with management of this critically ill patient, start tube feed, closely monitor renal system 10/06: Resumed care, remains on mechanical ventilation. No active bleeding, H&H stable. Continue to monitor CBC and BMP. Continue IV antibiotic for underlying pneumonia. Follow critical care and ID recommendation. 10/07: Remains on mechanical ventilation. No active bleeding, H&H stable. Critical care following, wean off ventilation as tolerated. 10/08: Patient had another cardiac arrest last night. Remains on mechanical ventilation, update family. Continue supportive care -poor prognosis 10/09: Called patient mother and discussed about patient care and management. Answered all question to best of my knowledge and family satisfaction. Patient remains on mechanical ventilation, cardiac arrest x2 so far. Critically sick, poor prognosis 10/10: remains on mechanical ventilation. h/h stable, no active bleeding. monitor CBC/BMP 10/11: WBC trended up with diarrhea, started on vancomycin po. remains on MV, off pressor, tolerating TF 10/12: remains on MV, off pressor, tolerating TF. called family for update but unable to reach, could not leave message as it was full. cont supportive care, wean off vent as tolerated. 10/13/2020; patient is on mechanical ventilation, tolerating tube feeding. Patient has labored breathing. Neuro was consulted and recommend MRI. Patient is on Precedex. Rectal tube in place. 10/14/2020; patient is on mechanical ventilation, Precedex. Patient had fever and blood culture ordered. Patient is on IV vancomycin per ID recommendation. Neuro consulted and recommend MRI. Continue to monitor. Prognosis is guarded. 10/15/2020; patient is on mechanical ventilation, Precedex. Patient had fever and blood culture ordered. Patient is on IV vancomycin per ID recommendation. Neuro consulted and recommend MRI. Continue to monitor. Prognosis is guarded. 10/17: Remains with C.DIFF and Bactermia, Poor prognosis. No purposeful movement. MRI and EEG discussed with Intensvisit, Continue aggressive BP control. 10/18: Blood pressure better controlled MRI done 10/15 shows mild improvement in edema. We will continue to monitor mother was at bedside yesterday. Nursing documentation trach and PEG discussed with the mother including goals of care. She is still in denial about the gravity of her daughters her condition which is understandable considering her age. Continue aggressive management at this time. Await for bacteremia to clear by ID before placing PICC line. 10/19: Patient for possible PEG and Trach, ID following, repeat cultures remain negative. Poor prognosis 10/20: Pt noted to DVT and SVT in the RUE, Vascular consult and will also obtain Hematology for possible considering changing in Anticoagulation. CONTINUE TO MONITOR H/H and PLT. Family updated by [employer]ens[employer]. Heparin gtt started. Will check CBC and BMP 10/21: Continue supporive care, Diarrhea now resolving, But still with persistent Fever, May need repeat CT/AP per ID, still with profused Encephalopathy 10/22: Continue supportive care, weaning, awaiting repeat Imaging. FOLLOW Fever curve. Enoxparin restarted 10/23: Continue supportive care, wean as tolerated. 10/24; Started on CPAP trial, discussed with pulmonary, still with diarrhea. 10/25: Patients seen and examined, no clinical changes, still with diarrhea. ?meaningful recovery. 10/26: Clinically unchanged, continue CPAP trial, Will discuss with Neurology about re-evaluation, ?Need for repeat CT head. ?PRESS considering initial elevated BP, now stable. 10/27; tracheostomy on vent, weaning trials, vital signs noted, poor prognosis 10/28; unable to wean, tracheostomy on vent. Sepsis. Continue current management. Consults and recommendations noted and appreciated 10/30/2020;Patient on T-piece 5 L of oxygen not in acute distress, noncommunicative 11/02/2020; patient on T-piece 5 L of oxygen 11/03/2020; patient's fever slightly improved low-grade, continue current management, remains on T-piece with 5 L of oxygen 11/04/2020; T-max last 24 hours 100.3 F, new cultures negative to date, monitor off antibiotics Patient is off Levophed, blood pressures reasonable level, tracheostomy on T- piece 3 to 5 L nasal cannula oxygen 11/05/2020; tracheostomy on T-piece patient remains on 5 L of nasal cannula oxygen, unresponsive severe hypoxic brain injury I called patient's mother Ms. Pamela Bassett as well as patient's spouse Mr. Danilo Dimas at [phone] unable to reach them Left voicemail on Ms. Pamela Bassettz phone and encouraged him to call back 11/06/2020; I tried to call again today Ms. Pamela Bassett to discuss patient's condition and treatment plan and update consultants recommendations and patient's prognosis., unable to reach her 11/07/20 Will try LTAC/Hospice 11/08/20 Same condition 11/09/2020 Same condition 11/10/2020; family conference was held by case management yesterday 11/09/2020, family decided and agreed for SNF placement 11/11/2020; patient seen and examined, clinically no change tracheostomy on 5 L of nasal cannula oxygen, hemodynamically and clinically stable for discharge To LTAC versus SNF, DC planning per case management 11/12/2020; clinically no change, continue current management, DC planning per case management possible SNF placement 11/13/2020; patient is receiving herpes flareup treatment per ID 11/14/2020; clinically no change, awaiting SNF placement 11/15/2020; clinically no change, tracheostomy on T-piece on 5 L oxygen, awaiting placement 11/16/2020; patient awaiting placement 11/18/2020; abdominal CT scan negative for insulinoma or pancreatic tumor ,clinically no change Awaiting SNF placement 11/19/2020; remains on 4 L of oxygen tracheostomy via T-piece, awaiting SNF placement 11/20/2020 Awaiting SNF placement 11/21/2020 Waiting for SNF placement 11/22/2020 Waiting for placement 11/23/2020 Waiting for placement 11/24/2020 through 12/24/2020 Patient waiting for placement 11/27/2020; patient remains hypoglycemic on D10 W IV fluids, CT abdomen negative for insulinoma Remains stable awaiting SNF placement, tracheostomy on 5 L oxygen via T-piece 11/28/2020; awaiting SNF placement 11/29/2020; patient remains unresponsive, tracheostomy on T-piece, on 4 to 5 L of oxygen Wean as tolerated, DC planning per case management possible SNF placement 11/30/2020; awaiting SNF placement 12/02/2020; awaiting placement, stable for discharge 12/03/2020; clinically no change, awaiting placement, tracheostomy on T-piece, anoxic brain injury 12/04/2020 Patient has anoxic encephalopathy with anoxic brain brain injury Awaiting placement 12/05/2020; anoxic brain injury, awaiting placement. 12/06/20; anoxic brain injury. Awaiting placement. 12/07/2020; anoxic brain injury, awaiting placement. 12/09/2020; anoxic brain injury, awaiting placement. 12/10/2020; patient had episodes of fever overnight. CBC, BMP, blood culture, UA and chest x-ray ordered, will follow and manage accordingly. Urinalysis is suggestive of UTI and I put the patient on ceftriaxone, order urine culture. Chest x-ray is normal. 12/11/2020; patient is on ceftriaxone day 2 for UTI. We will continue to follow urine culture. 12/12/2020. Day #3 of Rocephin for UTI. We will continue for 2 more days while she is here. Present UTI. 12/13/2020. Day #4 of Rocephin for UTI. Patient remains on 50% with tracheostomy. Remains unresponsive with evidence of anoxic encephalopathy unable to make needs known. 12/14/2020. Day #5 of Rocephin for UTI completed today. Remains encephalopathic unable to make needs known. Remains on 50% unable to decrease oxygen via tra cheostomy. Overall prognosis remains extremely poor. 3: Continue to monitor. Stop and monitor antibiotics at this time. Continue to wean oxygen as tolerated. Wean oxygen as tolerated. Case management working on placement. 12/16: Continue supportive care aspiration precautions. Awaiting placement discussion. Monitor fever curve. Prognosis remains poor no evidence of neurological recovery as of today 12/17: Continue supportive care, check labs and chest xray. Still monitor off antibiotics. Monitor Sodium level 12/18: Patient remains with intermittent low grade fever, reviewed EEG from [facility] er again, consistent for Ischemic Hypoxic Encephalopathy, patient with decorticating posturing type presentation. Will discuss with maintenance carpenter to optimize diet so we can discontinue D5. CXR with no abnormality. Discussed extensively with the nursing staff at bedside CXR IMPRESSION: 1. No acute findings. 12/19: No clinical change 12/20: No clinical change, now off abx, monitor, discussed her medications with our pharmacist I believe that her posture and rigidity is likely from underlying anoxic encephalopathy. Continue to monitor and await placement decision. Continue aggressive suctioning. Plan discussed in detail with the nursing staff 12/21: Continue supportive care. Will give 500 cc bolus of fluid today to replace insensible losses. Tachycardia appears to be improving. Blood pressure precludes adjusting cardiac meds. Still awaiting placement from case management. Plan discussed in detail with the nursing staff 12/22. Continue support supportive care. Tracheostomy and PEG in place. Remains nonresponsive. Awaiting placement. 12/23. Continue support supportive care. Tracheostomy and PEG in place. Remains nonresponsive. Awaiting placement. Remains tachycardic. Decrease dose of lasix. Will try low dose metoprolol. Monitor BP closely 12/24. Continue support supportive care. Tracheostomy and PEG in place. Remains nonresponsive. Awaiting placement. Heart rate slightly better. Continue to monitor BP closely 12/25. Continue support supportive care. Tracheostomy and PEG in place. Remains nonresponsive. Awaiting placement. 12/26. Continue support supportive care. Tracheostomy and PEG in place. Remains nonresponsive. Awaiting placement 12/27. Continue support supportive care. Tracheostomy and PEG in place. Remains nonresponsive. Awaiting placement 12/28. Had fever yesterday. Blood culture drawn. UA - UTI - started on antibiotics. Now tracheal aspirate is growing GN rods. 12/29: Continue IV antibiotics, continue supportive care. Since admission patient has shown minimal or no chance of neurological recovery. Need 24/7 assistance. Currently on trach and PEG, nonverbal. Waiting on SNF placement. Discussed with talent solutions manager today. 12/30: Continue IV antibiotics for UTI, continue supportive care. Pending placement 12/31: continue supportive care. continue supportive care. Pending placement 01/01: continue supportive care. Pending placement. cont Iv abx for UTI till 01/04 01/02: Continue supportive care, pending placement. Sodium level slightly elevated, will start hypotonic fluid. Continue antibiotics till 01/04 01/03; cont hypotonic fluid, increase free water with TF for hypernatremia, follow BMP. cont supportive care. pending placement. cont cefepime. recx blood 01/04: resolved hyponatremia, cont supportive care, pending placement. Last day of supplement today. 01/05: Continue supportive care, pending placement. Monitor H&H and fever curve off antibiotic. 01/06; monitor off abx, suction as needed, Continue supportive care, pending placement. 01/07: Discharge pending on placement, vitals stable. Continue supportive care 01/08: Discharge pending on placement, vitals stable. Continue supportive care. stop lasix, increase metoprolol to 25mg BID for ST. 01/09 patient resting with eyes closed. Opens eyes to tactile stimulus, has a blink reflex, does not follow simple commands, has a T-collar / G-tube Lab results reviewed, low-grade fever, 01/10 Eyes open, does not follow simple commands, no acute events overnight 01/11 no acute events overnight, Waiting for placement 01/12 No acute events overnight. Patient awaiting for placement 01/13. No new issues. Awaiting placement 01/14. No new issues. Awaiting placement. 01/15. No new issues. Awaiting placement. 01/16. No new issues. Patient remain stable. Awaiting placement. Check maintenance labs. 01/17. Routine maintenance labs were ordered and are still pending. Await placement. 01/18. Patient with low-grade fever past 24-48 hrs. WBC within normal limits. Check chest x-ray, urinalysis and consider blood cultures. Continue tracheostomy care, secretion control and airway management. Patient currently with PEG and tube feedings at 60 cc an hour. Nutritional support and aspiration precautions. 01/19. Temperature 100.7 overnight. Continue to monitor closely. Continue tracheostomy care, secretion control and airway management. Patient currently with PEG and tube feedings at 60 cc an hour. Nutritional support and aspiration precautions. 01/20. Continue to monitor closely. Continue tracheostomy care, secretion control and airway management. Patient currently with PEG and tube feedings at 60 cc an hour. Nutritional support and aspiration precautions. 01/21. Afebrile overnight. Continue to monitor closely. Continue tracheostomy care, secretion control and airway management. Patient currently with PEG and tube feedings at 60 cc an hour. Nutritional support and aspiration precautions. 01/22. Continue to monitor closely. Continue tracheostomy care, secretion control and airway management. Patient currently with PEG and tube feedings at 60 cc an hour. Nutritional support and aspiration precautions. 01/23. Continue tracheostomy care, secretion control and airway management. Patient currently with PEG and tube feedings at 60 cc an hour. Nutritional support and aspiration precautions. Will get routine labs tomorrow. 01/24. Labs reviewed. No abnormalities. Continue tracheostomy care, secretion control and airway management. Patient currently with PEG and tube feedings at 60 cc an hour. Nutritional support and aspiration precautions. 01/25. Temp 100.6. More sleepy today. Will get chest xray, blood culture, urinalysis, sputum cultures. Will start on empirical abx. 01/26: Vitals noted, slightly tachycardic. Follow culture work-up, continue supportive care. 01/27: Spiking low-grade temp, negative UA, sputum culture and recent blood cultures also negative. Continue to monitor off antibiotics. Continue supportive care. Pending placement. 01/28: cont to spike low grade temp, negative UA, sputum culture and recent blood cultures also negative. Continue to monitor off antibiotics. will order fpr sinus xry. Continue supportive care. Pending placement. 01/29: Continue to follow clinically, intermittently spiking low-grade temp, all recent culture work is negative, negative UA, normal respiratory jaylan 1 tracheal aspirate. Vitals noted and currently stable. Pending placement 01/30: Clinically unchanged, continue to monitor vitals, continue supportive cares. Pending placement. Discussed plan of care with RN at the bedside. 01/31 - TODATE: cont supportive care, pending placement. monitor vitals carefully. Discussed with family at the bedside. 02/06. Patient afebrile today. Continue trach care. Secretions stable today. Culture data negative so far. Awaiting placement. 02/07. Awaiting placement awaiting family member to evaluate papers. Continue trach care secretions stable. Pending placement 02/09: Intermittent fever, ?drug related, will check cxr and also labs. No new complaints. 02/10: Patient's trach dislodged today. Nevertheless respiratory status is intact attempt to reinsert was unsuccessful will monitor discussed with nursing staff to pay close attention to the patient. Considering that this was not a planned decannulation I will start the patient on continuous pulse ox until full evaluation was done by pulmonary. 02/13/2021 Vital signs stable Unresponsive secondary to anoxic encephalopathy Awaiting placement 02/14/2021 Awaiting placement 02/15/2021 Anoxic encephalopathy Awaiting placement 02/16/2021 Anoxic encephalopathy Awaiting placement 02/17/2021 Anoxic encephalopathy awaiting placement 02/18/2021 Anoxic encephalopathy awaiting placement Objective - Exam Narrative Exam: Patient with tracheostomy - Constitutional Vitals: Vital Signs - 12hr 02/18/21 02/18/21 02/18/21 20:58 21:31 22:00 Temperature 99.2 F Pulse Rate 100 H Pulse Rate [ 100 H Right Dorsalis Pedis] Respiratory 17 19 Rate Blood Pressure 124/78 O2 Sat by Pulse 98 100 96 Oximetry 02/18/21 02/19/21 22:18 05:07 Temperature 99.3 F Pulse Rate 100 H 94 H Pulse Rate [ Right Dorsalis Pedis] Respiratory 17 Rate Blood Pressure 127/78 129/51 O2 Sat by Pulse 97 Oximetry General appearance: Present: no acute distress, well-nourished - EENT Eyes: PERRL, EOM intact ENT: hearing intact, clear oral mucosa Ears: bilateral: normal - Neck Neck: supple, normal ROM, other (Tracheostomy in place) - Respiratory Respiratory effort: normal Respiratory: bilateral: CTA - Breasts Breasts: normal - Cardiovascular Heart rate: 76 Rhythm: regular Heart Sounds: Present: S1 & S2. Absent: gallop, rub Extremities: pulses intact, No edema, normal color, Full ROM - Gastrointestinal General gastrointestinal: Present: soft, non-tender, non-distended, normal bowel sounds - Genitourinary Female genitourinary: normal - Integumentary Integumentary: clear, warm, dry - Musculoskeletal Musculoskeletal: generalized weakness - Neurologic Neurologic: moves all extremities, other (Unresponsive) - Psychiatric Psychiatric: depressed, other (Unresponsive) - Allied health notes Allied health notes reviewed: nursing, case management - Labs CBC & Chem 7: 02/12/21 04:09 02/12/21 04:09 HEART Score - HEART Score Age: < 45 Risk factors: 1-2 risk factors - Critical Actions Critical Actions: >7 pts:50-65% risk of adverse cardiac event. Early invasive measures
[2021-02-19] MEDS: ENOXAPARIN 40 MG/0.4 ML INJ SUB-Q SCH (10:42)
[2021-02-19] MEDS: FAMOTIDINE 20 MG TAB PO SCH ×2 (10:43→22:50)
[2021-02-19] MEDS: METOPROLOL TARTRATE 25 MG TAB PO SCH ×2 (10:43→22:50)
[2021-02-20] MEDS: FAMOTIDINE 20 MG TAB PO SCH ×2 (10:53→22:17)
[2021-02-20] MEDS: ENOXAPARIN 40 MG/0.4 ML INJ SUB-Q SCH (10:54)
[2021-02-20] MEDS: METOPROLOL TARTRATE 25 MG TAB PO SCH ×2 (11:01→22:17)
--- NOTE | 2021-02-20 21:32 | Progress Note ---
Assessment and Plan Assessment and Plan 30 y/o female patient with Eclampsia/help syndrome, s/p emergent section with DIC, hemorrhage, supracervical abdominal hysterectomy, acute respiratory failure , tracheostomy on T-piece with morbid obesity, s/p cardiac arrest 12/08/2019 status post CPR per ACLS, acute hypoxic brain injury Acute kidney injury improved, severe shock requiring pressors, DIC septic shock improved, history of C. difficile colitis completed treatment with vancomycin. Tracheostomy on T-piece, continues to require 5 L of oxygen. Herpetic flareup, ID started treatment with antibiotics, patient is waiting for SNF placement DC planning per case management Assessment and plan: --Persistent hypoglycemia; patient is requiring continuous D10 W infusion CT abdomen done to rule out insulinoma, CT abdomen report negative for pancreatic tumor We will closely monitor --Cardiac arrest; 10/07/2020 ,status post CPR --Acute hypoxic brain injury; Supportive care, closely monitor --Acute hypoxic respiratory failure: Tracheostomy on T-piece , today on 4.5 L oxygen, saturating 100% Supportive care, Pulmonary critical following COVID-19 negative C. difficile positive; Patient on contact isolation Completed treatment --Afebrile: Blood, urine, tracheal aspirate cultures New cultures negative to date Monitor off antibiotics Closely monitor --Sepsis; received antibiotics Continue to monitor off antibiotics ID following --COVID-19 test negative; 10/08/2020 --C. difficile colitis test; positive; 10/16/2020 --Acute metabolic encephalopathy --Acute kidney injury; vasomotor nephropathy Resolved, renal function within normal limits, closely monitor --Shock; monitor of pressors Blood pressures reasonable level --DIC; sepsis, septic shock, resolved --History of preeclampsia; / hemorrhage Status post hysterectomy --History of C. difficile colitis; completed oral vancomycin --DVT/SVT and right upper extremity Very poor prognosis, Consults recommendations noted and appreciated We will closely monitor the patient and adjust management as needed Plan of care reviewed with the patient's nurse. Waiting for intermediate facility placement Subjective Date of service: 02/20/21 Principal diagnosis: Eclampsia/HELLP Syndrome, ADOLPH, DIC; s/p , s/p supracervical hyst Interval history: 30 y/o female patient with Eclampsia/help syndrome, s/p emergent section with DIC, hemorrhage, supracervical abdominal hysterectomy, acute respiratory failure , tracheostomy on T-piece with morbid obesity, s/p cardiac arrest 12/08/2019 status post CPR per ACLS, acute hypoxic brain injury Acute kidney injury improved, severe shock requiring pressors, DIC septic shock improved, history of C. difficile colitis on vancomycin. Tracheostomy on T-piece, continues to require 5 L of oxygen. Brief history; 30 year old -[place] female CHE 10/25/20 at 36w5d who presents with seizures in triage on 10/02/20. Pt was not able to provide history but per pt's , she presented to the hospital to return a 24 hour urine specimen for analysis. She then suddenly reported that she did not feel good. She was taken to labor and delivery and shortly after arrival, she began seizing. During this time, a code met was called because the patient became hypoxic. She was then noted to be without a pulse. Chest compressions were started immediately, and the patient was emergently taken to the operating room for delivery of the fetus. Off note, This patient has had care at [facility] with coma nagement by [facility] since 11 wks complicated by ADHD, morbid obesity, generalized anxiety disorder, panic attacks, chronic narcotic use, fibromyalgia, GERD, Irritable Bowel Syndrome, Migraines, h/o endometrial ablation and ovarian vein embolization, genital herpes, insomnia, LGA fetus, nausea and vomiting, polyhydramnios, quad screen positive for Down's Syndrome, and previous x 3. She is GBS negative. , Patient tracheostomy on ventilatory support, unable to wean, continue supportive care poor prognosis 11:30: Pt brought to L&D triage for evaluation of possible labor. Pt accompanied by her spouse. Pt spouse poor historian; unable to obtain history- allergies at this time. Pt taken from registration to triage area via WC. Pt unresponsive, actively seizing with snorous respirations. development consultant, Kassy, called and requesting assistance. 11:35: Multiple staff at bedside. Pt 02 sat 67% on nonrebreather, unable to read BP . Yifan Theodore CRNA, at bedside for intubation and assistance with IV insertion. INT attempt by multiple RNs unsuccessful at this time. 11:42: Pt being bagged by KORIN, 02% 79%. No pulse palpated, compressions on at this time; bharati young called and Dr. Newberry preparing OR for emergent c/s. 11:44: Continued compressions on stretcher while transporting pt to OR 1. Pt being bagged with jaw thrust manuever in place by KORIN Stringer student. 11:45: Arrival to OR 1. Dr. Newberry and Dr. Portillo present for emergent c/s. Code team arrived for continued care. patient revived and c/s done Patient has been bleeding from C/s site followed by supracervical hysterectomy for severe bleeding, Patient transfused multiple units of PRBC, Patient in DIC. Patient transferred to the ICU Hospital course; 10/03. Patient seen and examined at bedside this morning. Patient is no nresponsive and mechanically ventilated. On pressors. Labs reviewed-has leukocytosis, anemia, thrombocytopenia, ADOLPH and lactic acidosis. Started on IV antibiotics to cover possible sepsis secondary to DIC. Hematology oncology recommendations appreciated-needs additional cryoprecipitate and FFP. Monitor D-dimer, fibrinogen and frequent labs. Nephrology consulted for lactic acidosis and ADOLPH. 10/04. Remains mechanically ventilated. Kevin antibiotics. Labs shows improved acidosis - lactic acid 3.5. Hb drop noted. Getting transfused 2 units PRBCs. Platelet count is ~40k. Continue to monitor labs closely. Critical care team on board. 10/05; xray reviewed, concerning for multifocal infilrate, likely underlying Pneumonia, will add ID consult to assist with management of this critically ill patient, start tube feed, closely monitor renal system 10/06: Resumed care, remains on mechanical ventilation. No active bleeding, H&H stable. Continue to monitor CBC and BMP. Continue IV antibiotic for underlying pneumonia. Follow critical care and ID recommendation. 10/07: Remains on mechanical ventilation. No active bleeding, H&H stable. Critical care following, wean off ventilation as tolerated. 10/08: Patient had another cardiac arrest last night. Remains on mechanical ventilation, update family. Continue supportive care -poor prognosis 10/09: Called patient mother and discussed about patient care and management. Answered all question to best of my knowledge and family satisfaction. Patient remains on mechanical ventilation, cardiac arrest x2 so far. Critically sick, poor prognosis 10/10: remains on mechanical ventilation. h/h stable, no active bleeding. monitor CBC/BMP 10/11: WBC trended up with diarrhea, started on vancomycin po. remains on MV, off pressor, tolerating TF 10/12: remains on MV, off pressor, tolerating TF. called family for update but unable to reach, could not leave message as it was full. cont supportive care, wean off vent as tolerated. 10/13/2020; patient is on mechanical ventilation, tolerating tube feeding. Patient has labored breathing. Neuro was consulted and recommend MRI. Patient is on Precedex. Rectal tube in place. 10/14/2020; patient is on mechanical ventilation, Precedex. Patient had fever and blood culture ordered. Patient is on IV vancomycin per ID recommendation. Neuro consulted and recommend MRI. Continue to monitor. Prognosis is guarded. 10/15/2020; patient is on mechanical ventilation, Precedex. Patient had fever and blood culture ordered. Patient is on IV vancomycin per ID recommendation. Neuro consulted and recommend MRI. Continue to monitor. Prognosis is guarded. 10/17: Remains with C.DIFF and Bactermia, Poor prognosis. No purposeful movement. MRI and EEG discussed with Intensvisit, Continue aggressive BP control. 10/18: Blood pressure better controlled MRI done 10/15 shows mild improvement in edema. We will continue to monitor mother was at bedside yesterday. Nursing documentation trach and PEG discussed with the mother including goals of care. She is still in denial about the gravity of her daughters her condition which is understandable considering her age. Continue aggressive management at this time. Await for bacteremia to clear by ID before placing PICC line. 10/19: Patient for possible PEG and Trach, ID following, repeat cultures remain negative. Poor prognosis 10/20: Pt noted to DVT and SVT in the RUE, Vascular consult and will also obtain Hematology for possible considering changing in Anticoagulation. CONTINUE TO MONITOR H/H and PLT. Family updated by [employer]. Heparin gtt started. Will check CBC and BMP 10/21: Continue supporive care, Diarrhea now resolving, But still with persistent Fever, May need repeat CT/AP per ID, still with profused Encephalopathy 10/22: Continue supportive care, weaning, awaiting repeat Imaging. FOLLOW Fever curve. Enoxparin restarted 10/23: Continue supportive care, wean as tolerated. 10/24; Started on CPAP trial, discussed with pulmonary, still with diarrhea. 10/25: Patients seen and examined, no clinical changes, still with diarrhea. ?meaningful recovery. 10/26: Clinically unchanged, continue CPAP trial, Will discuss with Neurology about re-evaluation, ?Need for repeat CT head. ?PRESS considering initial elevated BP, now stable. 10/27; tracheostomy on vent, weaning trials, vital signs noted, poor prognosis 10/28; unable to wean, tracheostomy on vent. Sepsis. Continue current management. Consults and recommendations noted and appreciated 10/30/2020;Patient on T-piece 5 L of oxygen not in acute distress, noncommunicative 11/02/2020; patient on T-piece 5 L of oxygen 11/03/2020; patient's fever slightly improved low-grade, continue current management, remains on T-piece with 5 L of oxygen 11/04/2020; T-max last 24 hours 100.3 F, new cultures negative to date, monitor off antibiotics Patient is off Levophed, blood pressures reasonable level, tracheostomy on T- piece 3 to 5 L nasal cannula oxygen 11/05/2020; tracheostomy on T-piece patient remains on 5 L of nasal cannula oxygen, unresponsive severe hypoxic brain injury I called patient's mother Ms. Pamela Bassett as well as patient's spouse Mr. Danilo Dimas at [phone] unable to reach them Left voicemail on Ms. Pamela Bassettz phone and encouraged him to call back 11/06/2020; I tried to call again today Ms. Pamela Bassett to discuss patient's condition and treatment plan and update consultants recommendations and patient's prognosis., unable to reach her 11/07/20 Will try LTAC/Hospice 11/08/20 Same condition 11/09/2020 Same condition 11/10/2020; family conference was held by case management yesterday 11/09/2020, family decided and agreed for SNF placement 11/11/2020; patient seen and examined, clinically no change tracheostomy on 5 L of nasal cannula oxygen, hemodynamically and clinically stable for discharge To LTAC versus SNF, DC planning per case management 11/12/2020; clinically no change, continue current management, DC planning per case management possible SNF placement 11/13/2020; patient is receiving herpes flareup treatment per ID 11/14/2020; clinically no change, awaiting SNF placement 11/15/2020; clinically no change, tracheostomy on T-piece on 5 L oxygen, awaiting placement 11/16/2020; patient awaiting placement 11/18/2020; abdominal CT scan negative for insulinoma or pancreatic tumor ,clinically no change Awaiting SNF placement 11/19/2020; remains on 4 L of oxygen tracheostomy via T-piece, awaiting SNF placement 11/20/2020 Awaiting SNF placement 11/21/2020 Waiting for SNF placement 11/22/2020 Waiting for placement 11/23/2020 Waiting for placement 11/24/2020 through 12/24/2020 Patient waiting for placement 11/27/2020; patient remains hypoglycemic on D10 W IV fluids, CT abdomen negative for insulinoma Remains stable awaiting SNF placement, tracheostomy on 5 L oxygen via T-piece 11/28/2020; awaiting SNF placement 11/29/2020; patient remains unresponsive, tracheostomy on T-piece, on 4 to 5 L of oxygen Wean as tolerated, DC planning per case management possible SNF placement 11/30/2020; awaiting SNF placement 12/02/2020; awaiting placement, stable for discharge 12/03/2020; clinically no change, awaiting placement, tracheostomy on T-piece, anoxic brain injury 12/04/2020 Patient has anoxic encephalopathy with anoxic brain brain injury Awaiting placement 12/05/2020; anoxic brain injury, awaiting placement. 12/06/20; anoxic brain injury. Awaiting placement. 12/07/2020; anoxic brain injury, awaiting placement. 12/09/2020; anoxic brain injury, awaiting placement. 12/10/2020; patient had episodes of fever overnight. CBC, BMP, blood culture, UA and chest x-ray ordered, will follow and manage accordingly. Urinalysis is suggestive of UTI and I put the patient on ceftriaxone, order urine culture. Chest x-ray is normal. 12/11/2020; patient is on ceftriaxone day 2 for UTI. We will continue to follow urine culture. 12/12/2020. Day #3 of Rocephin for UTI. We will continue for 2 more days while she is here. Present UTI. 12/13/2020. Day #4 of Rocephin for UTI. Patient remains on 50% with tracheostomy. Remains unresponsive with evidence of anoxic encephalopathy unable to make needs known. 12/14/2020. Day #5 of Rocephin for UTI completed today. Remains encephalopathic unable to make needs known. Remains on 50% unable to decrease oxygen via tra cheostomy. Overall prognosis remains extremely poor. 3: Continue to monitor. Stop and monitor antibiotics at this time. Continue to wean oxygen as tolerated. Wean oxygen as tolerated. Case management working on placement. 12/16: Continue supportive care aspiration precautions. Awaiting placement discussion. Monitor fever curve. Prognosis remains poor no evidence of neurological recovery as of today 12/17: Continue supportive care, check labs and chest xray. Still monitor off antibiotics. Monitor Sodium level 12/18: Patient remains with intermittent low grade fever, reviewed EEG from [facility] er again, consistent for Ischemic Hypoxic Encephalopathy, patient with decorticating posturing type presentation. Will discuss with solvent station attendant to optimize diet so we can discontinue D5. CXR with no abnormality. Discussed extensively with the nursing staff at bedside CXR IMPRESSION: 1. No acute findings. 12/19: No clinical change 12/20: No clinical change, now off abx, monitor, discussed her medications with our pharmacist I believe that her posture and rigidity is likely from underlying anoxic encephalopathy. Continue to monitor and await placement decision. Continue aggressive suctioning. Plan discussed in detail with the nursing staff 12/21: Continue supportive care. Will give 500 cc bolus of fluid today to replace insensible losses. Tachycardia appears to be improving. Blood pressure precludes adjusting cardiac meds. Still awaiting placement from case management. Plan discussed in detail with the nursing staff 12/22. Continue support supportive care. Tracheostomy and PEG in place. Remains nonresponsive. Awaiting placement. 12/23. Continue support supportive care. Tracheostomy and PEG in place. Remains nonresponsive. Awaiting placement. Remains tachycardic. Decrease dose of lasix. Will try low dose metoprolol. Monitor BP closely 12/24. Continue support supportive care. Tracheostomy and PEG in place. Remains nonresponsive. Awaiting placement. Heart rate slightly better. Continue to monitor BP closely 12/25. Continue support supportive care. Tracheostomy and PEG in place. Remains nonresponsive. Awaiting placement. 12/26. Continue support supportive care. Tracheostomy and PEG in place. Remains nonresponsive. Awaiting placement 12/27. Continue support supportive care. Tracheostomy and PEG in place. Remains nonresponsive. Awaiting placement 12/28. Had fever yesterday. Blood culture drawn. UA - UTI - started on antibiotics. Now tracheal aspirate is growing GN rods. 12/29: Continue IV antibiotics, continue supportive care. Since admission patient has shown minimal or no chance of neurological recovery. Need 24/7 assistance. Currently on trach and PEG, nonverbal. Waiting on SNF placement. Discussed with lining caser today. 12/30: Continue IV antibiotics for UTI, continue supportive care. Pending placement 12/31: continue supportive care. continue supportive care. Pending placement 01/01: continue supportive care. Pending placement. cont Iv abx for UTI till 01/04 01/02: Continue supportive care, pending placement. Sodium level slightly elevated, will start hypotonic fluid. Continue antibiotics till 01/04 01/03; cont hypotonic fluid, increase free water with TF for hypernatremia, follow BMP. cont supportive care. pending placement. cont cefepime. recx blood 01/04: resolved hyponatremia, cont supportive care, pending placement. Last day of supplement today. 01/05: Continue supportive care, pending placement. Monitor H&H and fever curve off antibiotic. 01/06; monitor off abx, suction as needed, Continue supportive care, pending placement. 01/07: Discharge pending on placement, vitals stable. Continue supportive care 01/08: Discharge pending on placement, vitals stable. Continue supportive care. stop lasix, increase metoprolol to 25mg BID for ST. 01/09 patient resting with eyes closed. Opens eyes to tactile stimulus, has a blink reflex, does not follow simple commands, has a T-collar / G-tube Lab results reviewed, low-grade fever, 01/10 Eyes open, does not follow simple commands, no acute events overnight 01/11 no acute events overnight, Waiting for placement 01/12 No acute events overnight. Patient awaiting for placement 01/13. No new issues. Awaiting placement 01/14. No new issues. Awaiting placement. 01/15. No new issues. Awaiting placement. 01/16. No new issues. Patient remain stable. Awaiting placement. Check maintenance labs. 01/17. Routine maintenance labs were ordered and are still pending. Await placement. 01/18. Patient with low-grade fever past 24-48 hrs. WBC within normal limits. Check chest x-ray, urinalysis and consider blood cultures. Continue tracheostomy care, secretion control and airway management. Patient currently with PEG and tube feedings at 60 cc an hour. Nutritional support and aspiration precautions. 01/19. Temperature 100.7 overnight. Continue to monitor closely. Continue tracheostomy care, secretion control and airway management. Patient currently with PEG and tube feedings at 60 cc an hour. Nutritional support and aspiration precautions. 01/20. Continue to monitor closely. Continue tracheostomy care, secretion control and airway management. Patient currently with PEG and tube feedings at 60 cc an hour. Nutritional support and aspiration precautions. 01/21. Afebrile overnight. Continue to monitor closely. Continue tracheostomy care, secretion control and airway management. Patient currently with PEG and tube feedings at 60 cc an hour. Nutritional support and aspiration precautions. 01/22. Continue to monitor closely. Continue tracheostomy care, secretion control and airway management. Patient currently with PEG and tube feedings at 60 cc an hour. Nutritional support and aspiration precautions. 01/23. Continue tracheostomy care, secretion control and airway management. Patient currently with PEG and tube feedings at 60 cc an hour. Nutritional support and aspiration precautions. Will get routine labs tomorrow. 01/24. Labs reviewed. No abnormalities. Continue tracheostomy care, secretion control and airway management. Patient currently with PEG and tube feedings at 60 cc an hour. Nutritional support and aspiration precautions. 01/25. Temp 100.6. More sleepy today. Will get chest xray, blood culture, urinalysis, sputum cultures. Will start on empirical abx. 01/26: Vitals noted, slightly tachycardic. Follow culture work-up, continue supportive care. 01/27: Spiking low-grade temp, negative UA, sputum culture and recent blood cultures also negative. Continue to monitor off antibiotics. Continue supportive care. Pending placement. 01/28: cont to spike low grade temp, negative UA, sputum culture and recent blood cultures also negative. Continue to monitor off antibiotics. will order fpr sinus xry. Continue supportive care. Pending placement. 01/29: Continue to follow clinically, intermittently spiking low-grade temp, all recent culture work is negative, negative UA, normal respiratory jaylan 1 tracheal aspirate. Vitals noted and currently stable. Pending placement 01/30: Clinically unchanged, continue to monitor vitals, continue supportive cares. Pending placement. Discussed plan of care with RN at the bedside. 01/31 - TODATE: cont supportive care, pending placement. monitor vitals carefully. Discussed with family at the bedside. 02/06. Patient afebrile today. Continue trach care. Secretions stable today. Culture data negative so far. Awaiting placement. 02/07. Awaiting placement awaiting family member to evaluate papers. Continue trach care secretions stable. Pending placement 02/09: Intermittent fever, ?drug related, will check cxr and also labs. No new complaints. 02/10: Patient's trach dislodged today. Nevertheless respiratory status is intact attempt to reinsert was unsuccessful will monitor discussed with nursing staff to pay close attention to the patient. Considering that this was not a planned decannulation I will start the patient on continuous pulse ox until full evaluation was done by pulmonary. 02/13/2021 Vital signs stable Unresponsive secondary to anoxic encephalopathy Awaiting placement 02/14/2021 Awaiting placement 02/15/2021 Anoxic encephalopathy Awaiting placement 02/16/2021 Anoxic encephalopathy Awaiting placement 02/17/2021 Anoxic encephalopathy awaiting placement 02/18/2021 Anoxic encephalopathy awaiting placement 02/19/2021 Anoxic encephalopathy awaiting placement 02/20/2021 Anoxic encephalopathy awaiting placement Objective - Exam Narrative Exam: Patient with tracheostomy - Constitutional Vitals: Vital Signs - 12hr 02/20/21 02/20/21 02/20/21 11:01 11:51 16:29 Temperature 98.2 F 98.7 F Pulse Rate 66 97 H 113 H Respiratory 18 18 Rate Blood Pressure 109/60 125/71 130/82 O2 Sat by Pulse 97 96 Oximetry General appearance: Present: no acute distress, well-nourished - EENT Eyes: PERRL, EOM intact ENT: hearing intact, clear oral mucosa Ears: bilateral: normal - Neck Neck: supple, normal ROM, other (Trach in place) - Respiratory Respiratory effort: normal Respiratory: bilateral: CTA - Breasts Breasts: normal - Cardiovascular Heart rate: 78 Rhythm: regular Heart Sounds: Present: S1 & S2. Absent: gallop, rub Extremities: pulses intact, No edema, normal color, Full ROM - Gastrointestinal General gastrointestinal: Present: soft, non-tender, non-distended, normal bowel sounds - Genitourinary Female genitourinary: normal - Integumentary Integumentary: clear, warm, dry - Musculoskeletal Musculoskeletal: generalized weakness - Neurologic Neurologic: moves all extremities, other (Unresponsive) - Psychiatric Psychiatric: other (Unresponsive) - Labs CBC & Chem 7: 02/12/21 04:09 02/12/21 04:09 HEART Score - HEART Score Age: < 45 Risk factors: 1-2 risk factors - Critical Actions Critical Actions: >7 pts:50-65% risk of adverse cardiac event. Early invasive measures
[2021-02-21] MEDS: ALPRAZolam 0.25 MG TAB PO PRN ×2 (06:09→21:48)
[2021-02-21] MEDS: FAMOTIDINE 20 MG TAB PO SCH ×2 (10:51→21:44)
[2021-02-21] MEDS: ENOXAPARIN 40 MG/0.4 ML INJ SUB-Q SCH (10:51)
[2021-02-21] MEDS: METOPROLOL TARTRATE 25 MG TAB PO SCH ×2 (13:34→21:44)
--- NOTE | 2021-02-21 21:42 | Progress Note ---
Assessment and Plan Assessment and Plan 30 y/o female patient with Eclampsia/help syndrome, s/p emergent section with DIC, hemorrhage, supracervical abdominal hysterectomy, acute respiratory failure , tracheostomy on T-piece with morbid obesity, s/p cardiac arrest 12/08/2019 status post CPR per ACLS, acute hypoxic brain injury Acute kidney injury improved, severe shock requiring pressors, DIC septic shock improved, history of C. difficile colitis completed treatment with vancomycin. Tracheostomy on T-piece, continues to require 5 L of oxygen. Herpetic flareup, ID started treatment with antibiotics, patient is waiting for SNF placement DC planning per case management Assessment and plan: --Persistent hypoglycemia; patient is requiring continuous D10 W infusion CT abdomen done to rule out insulinoma, CT abdomen report negative for pancreatic tumor We will closely monitor --Cardiac arrest; 10/07/2020 ,status post CPR --Acute hypoxic brain injury; Supportive care, closely monitor --Acute hypoxic respiratory failure: Tracheostomy on T-piece , today on 4.5 L oxygen, saturating 100% Supportive care, Pulmonary critical following COVID-19 negative C. difficile positive; Patient on contact isolation Completed treatment --Afebrile: Blood, urine, tracheal aspirate cultures New cultures negative to date Monitor off antibiotics Closely monitor --Sepsis; received antibiotics Continue to monitor off antibiotics ID following --COVID-19 test negative; 10/08/2020 --C. difficile colitis test; positive; 10/16/2020 --Acute metabolic encephalopathy --Acute kidney injury; vasomotor nephropathy Resolved, renal function within normal limits, closely monitor --Shock; monitor of pressors Blood pressures reasonable level --DIC; sepsis, septic shock, resolved --History of preeclampsia; / hemorrhage Status post hysterectomy --History of C. difficile colitis; completed oral vancomycin --DVT/SVT and right upper extremity Very poor prognosis, Consults recommendations noted and appreciated We will closely monitor the patient and adjust management as needed Plan of care reviewed with the patient's nurse. Waiting for group home facility placement Subjective Date of service: 02/21/21 Principal diagnosis: Eclampsia/HELLP Syndrome, ADOLPH, DIC; s/p , s/p supracervical hyst Interval history: 30 y/o female patient with Eclampsia/help syndrome, s/p emergent section with DIC, hemorrhage, supracervical abdominal hysterectomy, acute respiratory failure , tracheostomy on T-piece with morbid obesity, s/p cardiac arrest 12/08/2019 status post CPR per ACLS, acute hypoxic brain injury Acute kidney injury improved, severe shock requiring pressors, DIC septic shock improved, history of C. difficile colitis on vancomycin. Tracheostomy on T-piece, continues to require 5 L of oxygen. Brief history; 30 year old -[place] female CHE 10/25/20 at 36w5d who presents with seizures in triage on 10/02/20. Pt was not able to provide history but per pt's , she presented to the hospital to return a 24 hour urine specimen for analysis. She then suddenly reported that she did not feel good. She was taken to labor and delivery and shortly after arrival, she began seizing. During this time, a code met was called because the patient became hypoxic. She was then noted to be without a pulse. Chest compressions were started immediately, and the patient was emergently taken to the operating room for delivery of the fetus. Off note, This patient has had care at [facility] with coma nagement by [facility] since 11 wks complicated by ADHD, morbid obesity, generalized anxiety disorder, panic attacks, chronic narcotic use, fibromyalgia, GERD, Irritable Bowel Syndrome, Migraines, h/o endometrial ablation and ovarian vein embolization, genital herpes, insomnia, LGA fetus, nausea and vomiting, polyhydramnios, quad screen positive for Down's Syndrome, and previous x 3. She is GBS negative. , Patient tracheostomy on ventilatory support, unable to wean, continue supportive care poor prognosis 11:30: Pt brought to L&D triage for evaluation of possible labor. Pt accompanied by her spouse. Pt spouse poor historian; unable to obtain history- allergies at this time. Pt taken from registration to triage area via WC. Pt unresponsive, actively seizing with snorous respirations. radar tester, Kassy, called and requesting assistance. 11:35: Multiple staff at bedside. Pt 02 sat 67% on nonrebreather, unable to read BP . Yifan Theodore CRNA, at bedside for intubation and assistance with IV insertion. INT attempt by multiple RNs unsuccessful at this time. 11:42: Pt being bagged by KORIN, 02% 79%. No pulse palpated, compressions on at this time; bharati young called and Dr. Newberry preparing OR for emergent c/s. 11:44: Continued compressions on stretcher while transporting pt to OR 1. Pt being bagged with jaw thrust manuever in place by KORIN Stringer student. 11:45: Arrival to OR 1. Dr. Newberry and Dr. Portillo present for emergent c/s. Code team arrived for continued care. patient revived and c/s done Patient has been bleeding from C/s site followed by supracervical hysterectomy for severe bleeding, Patient transfused multiple units of PRBC, Patient in DIC. Patient transferred to the ICU Hospital course; 10/03. Patient seen and examined at bedside this morning. Patient is no nresponsive and mechanically ventilated. On pressors. Labs reviewed-has leukocytosis, anemia, thrombocytopenia, ADOLPH and lactic acidosis. Started on IV antibiotics to cover possible sepsis secondary to DIC. Hematology oncology recommendations appreciated-needs additional cryoprecipitate and FFP. Monitor D-dimer, fibrinogen and frequent labs. Nephrology consulted for lactic acidosis and ADOLPH. 10/04. Remains mechanically ventilated. Kevin antibiotics. Labs shows improved acidosis - lactic acid 3.5. Hb drop noted. Getting transfused 2 units PRBCs. Platelet count is ~40k. Continue to monitor labs closely. Critical care team on board. 10/05; xray reviewed, concerning for multifocal infilrate, likely underlying Pneumonia, will add ID consult to assist with management of this critically ill patient, start tube feed, closely monitor renal system 10/06: Resumed care, remains on mechanical ventilation. No active bleeding, H&H stable. Continue to monitor CBC and BMP. Continue IV antibiotic for underlying pneumonia. Follow critical care and ID recommendation. 10/07: Remains on mechanical ventilation. No active bleeding, H&H stable. Critical care following, wean off ventilation as tolerated. 10/08: Patient had another cardiac arrest last night. Remains on mechanical ventilation, update family. Continue supportive care -poor prognosis 10/09: Called patient mother and discussed about patient care and management. Answered all question to best of my knowledge and family satisfaction. Patient remains on mechanical ventilation, cardiac arrest x2 so far. Critically sick, poor prognosis 10/10: remains on mechanical ventilation. h/h stable, no active bleeding. monitor CBC/BMP 10/11: WBC trended up with diarrhea, started on vancomycin po. remains on MV, off pressor, tolerating TF 10/12: remains on MV, off pressor, tolerating TF. called family for update but unable to reach, could not leave message as it was full. cont supportive care, wean off vent as tolerated. 10/13/2020; patient is on mechanical ventilation, tolerating tube feeding. Patient has labored breathing. Neuro was consulted and recommend MRI. Patient is on Precedex. Rectal tube in place. 10/14/2020; patient is on mechanical ventilation, Precedex. Patient had fever and blood culture ordered. Patient is on IV vancomycin per ID recommendation. Neuro consulted and recommend MRI. Continue to monitor. Prognosis is guarded. 10/15/2020; patient is on mechanical ventilation, Precedex. Patient had fever and blood culture ordered. Patient is on IV vancomycin per ID recommendation. Neuro consulted and recommend MRI. Continue to monitor. Prognosis is guarded. 10/17: Remains with C.DIFF and Bactermia, Poor prognosis. No purposeful movement. MRI and EEG discussed with Intensvisit, Continue aggressive BP control. 10/18: Blood pressure better controlled MRI done 10/15 shows mild improvement in edema. We will continue to monitor mother was at bedside yesterday. Nursing documentation trach and PEG discussed with the mother including goals of care. She is still in denial about the gravity of her daughters her condition which is understandable considering her age. Continue aggressive management at this time. Await for bacteremia to clear by ID before placing PICC line. 10/19: Patient for possible PEG and Trach, ID following, repeat cultures remain negative. Poor prognosis 10/20: Pt noted to DVT and SVT in the RUE, Vascular consult and will also obtain Hematology for possible considering changing in Anticoagulation. CONTINUE TO MONITOR H/H and PLT. Family updated by [employer]ens[employer]. Heparin gtt started. Will check CBC and BMP 10/21: Continue supporive care, Diarrhea now resolving, But still with persistent Fever, May need repeat CT/AP per ID, still with profused Encephalopathy 10/22: Continue supportive care, weaning, awaiting repeat Imaging. FOLLOW Fever curve. Enoxparin restarted 10/23: Continue supportive care, wean as tolerated. 10/24; Started on CPAP trial, discussed with pulmonary, still with diarrhea. 10/25: Patients seen and examined, no clinical changes, still with diarrhea. ?meaningful recovery. 10/26: Clinically unchanged, continue CPAP trial, Will discuss with Neurology about re-evaluation, ?Need for repeat CT head. ?PRESS considering initial elevated BP, now stable. 10/27; tracheostomy on vent, weaning trials, vital signs noted, poor prognosis 10/28; unable to wean, tracheostomy on vent. Sepsis. Continue current management. Consults and recommendations noted and appreciated 10/30/2020;Patient on T-piece 5 L of oxygen not in acute distress, noncommunicative 11/02/2020; patient on T-piece 5 L of oxygen 11/03/2020; patient's fever slightly improved low-grade, continue current management, remains on T-piece with 5 L of oxygen 11/04/2020; T-max last 24 hours 100.3 F, new cultures negative to date, monitor off antibiotics Patient is off Levophed, blood pressures reasonable level, tracheostomy on T- piece 3 to 5 L nasal cannula oxygen 11/05/2020; tracheostomy on T-piece patient remains on 5 L of nasal cannula oxygen, unresponsive severe hypoxic brain injury I called patient's mother Ms. Pamela Bassett as well as patient's spouse Mr. Danilo Dimas at [phone] unable to reach them Left voicemail on Ms. Pamela Bassettz phone and encouraged him to call back 11/06/2020; I tried to call again today Ms. Pamela Bassett to discuss patient's condition and treatment plan and update consultants recommendations and patient's prognosis., unable to reach her 11/07/20 Will try LTAC/Hospice 11/08/20 Same condition 11/09/2020 Same condition 11/10/2020; family conference was held by case management yesterday 11/09/2020, family decided and agreed for SNF placement 11/11/2020; patient seen and examined, clinically no change tracheostomy on 5 L of nasal cannula oxygen, hemodynamically and clinically stable for discharge To LTAC versus SNF, DC planning per case management 11/12/2020; clinically no change, continue current management, DC planning per case management possible SNF placement 11/13/2020; patient is receiving herpes flareup treatment per ID 11/14/2020; clinically no change, awaiting SNF placement 11/15/2020; clinically no change, tracheostomy on T-piece on 5 L oxygen, awaiting placement 11/16/2020; patient awaiting placement 11/18/2020; abdominal CT scan negative for insulinoma or pancreatic tumor ,clinically no change Awaiting SNF placement 11/19/2020; remains on 4 L of oxygen tracheostomy via T-piece, awaiting SNF placement 11/20/2020 Awaiting SNF placement 11/21/2020 Waiting for SNF placement 11/22/2020 Waiting for placement 11/23/2020 Waiting for placement 11/24/2020 through 12/24/2020 Patient waiting for placement 11/27/2020; patient remains hypoglycemic on D10 W IV fluids, CT abdomen negative for insulinoma Remains stable awaiting SNF placement, tracheostomy on 5 L oxygen via T-piece 11/28/2020; awaiting SNF placement 11/29/2020; patient remains unresponsive, tracheostomy on T-piece, on 4 to 5 L of oxygen Wean as tolerated, DC planning per case management possible SNF placement 11/30/2020; awaiting SNF placement 12/02/2020; awaiting placement, stable for discharge 12/03/2020; clinically no change, awaiting placement, tracheostomy on T-piece, anoxic brain injury 12/04/2020 Patient has anoxic encephalopathy with anoxic brain brain injury Awaiting placement 12/05/2020; anoxic brain injury, awaiting placement. 12/06/20; anoxic brain injury. Awaiting placement. 12/07/2020; anoxic brain injury, awaiting placement. 12/09/2020; anoxic brain injury, awaiting placement. 12/10/2020; patient had episodes of fever overnight. CBC, BMP, blood culture, UA and chest x-ray ordered, will follow and manage accordingly. Urinalysis is suggestive of UTI and I put the patient on ceftriaxone, order urine culture. Chest x-ray is normal. 12/11/2020; patient is on ceftriaxone day 2 for UTI. We will continue to follow urine culture. 12/12/2020. Day #3 of Rocephin for UTI. We will continue for 2 more days while she is here. Present UTI. 12/13/2020. Day #4 of Rocephin for UTI. Patient remains on 50% with tracheostomy. Remains unresponsive with evidence of anoxic encephalopathy unable to make needs known. 12/14/2020. Day #5 of Rocephin for UTI completed today. Remains encephalopathic unable to make needs known. Remains on 50% unable to decrease oxygen via trac heostomy. Overall prognosis remains extremely poor. 12/15: Continue to monitor. Stop and monitor antibiotics at this time. Continue to wean oxygen as tolerated. Wean oxygen as tolerated. Case management working on placement. 12/16: Continue supportive care aspiration precautions. Awaiting placement discussion. Monitor fever curve. Prognosis remains poor no evidence of neurological recovery as of today 12/17: Continue supportive care, check labs and chest xray. Still monitor off antibiotics. Monitor Sodium level 12/18: Patient remains with intermittent low grade fever, reviewed EEG from September again, consistent for Ischemic Hypoxic Encephalopathy, patient with decorticating posturing type presentation. Will discuss with coin purse assembler to optimize diet so we can discontinue D5. CXR with no abnormality. Discussed extensively with the nursing staff at bedside CXR IMPRESSION: 1. No acute findings. 12/19: No clinical change 12/20: No clinical change, now off abx, monitor, discussed her medications with our pharmacist I believe that her posture and rigidity is likely from underlying anoxic encephalopathy. Continue to monitor and await placement decision. Continue aggressive suctioning. Plan discussed in detail with the nursing staff 12/21: Continue supportive care. Will give 500 cc bolus of fluid today to replace insensible losses. Tachycardia appears to be improving. Blood pressure precludes adjusting cardiac meds. Still awaiting placement from case management. Plan discussed in detail with the nursing staff 12/22. Continue support supportive care. Tracheostomy and PEG in place. Remains nonresponsive. Awaiting placement. 12/23. Continue support supportive care. Tracheostomy and PEG in place. Remains nonresponsive. Awaiting placement. Remains tachycardic. Decrease dose of lasix. Will try low dose metoprolol. Monitor BP closely 12/24. Continue support supportive care. Tracheostomy and PEG in place. Remains nonresponsive. Awaiting placement. Heart rate slightly better. Continue to monitor BP closely 12/25. Continue support supportive care. Tracheostomy and PEG in place. Remains nonresponsive. Awaiting placement. 12/26. Continue support supportive care. Tracheostomy and PEG in place. Remains nonresponsive. Awaiting placement 12/27. Continue support supportive care. Tracheostomy and PEG in place. Remains nonresponsive. Awaiting placement 12/28. Had fever yesterday. Blood culture drawn. UA - UTI - started on antibiotics. Now tracheal aspirate is growing GN rods. 12/29: Continue IV antibiotics, continue supportive care. Since admission p sonient has shown minimal or no chance of neurological recovery. Need 24/7 assistance. Currently on trach and PEG, nonverbal. Waiting on SNF placement. Discussed with mattress spring encaser today. 12/30: Continue IV antibiotics for UTI, continue supportive care. Pending placement 12/31: continue supportive care. continue supportive care. Pending placement 01/01: continue supportive care. Pending placement. cont Iv abx for UTI till 01/04 01/02: Continue supportive care, pending placement. Sodium level slightly elevated, will start hypotonic fluid. Continue antibiotics till 01/04 01/03; cont hypotonic fluid, increase free water with TF for hypernatremia, follow BMP. cont supportive care. pending placement. cont cefepime. recx blood 01/04: resolved hyponatremia, cont supportive care, pending placement. Last day of supplement today. 01/05: Continue supportive care, pending placement. Monitor H&H and fever curve off antibiotic. 01/06; monitor off abx, suction as needed, Continue supportive care, pending placement. 01/07: Discharge pending on placement, vitals stable. Continue supportive care 01/08: Discharge pending on placement, vitals stable. Continue supportive care. stop lasix, increase metoprolol to 25mg BID for ST. 01/09 patient resting with eyes closed. Opens eyes to tactile stimulus, has a blink reflex, does not follow simple commands, has a T-collar / G-tube Lab results reviewed, low-grade fever, 01/10 Eyes open, does not follow simple commands, no acute events overnight 01/11 no acute events overnight, Waiting for placement 01/12 No acute events overnight. Patient awaiting for placement 01/13. No new issues. Awaiting placement 01/14. No new issues. Awaiting placement. 01/15. No new issues. Awaiting placement. 01/16. No new issues. Patient remain stable. Awaiting placement. Check maintenance labs. 01/17. Routine maintenance labs were ordered and are still pending. Await placement. 01/18. Patient with low-grade fever past 24-48 hrs. WBC within normal limits. Check chest x-ray, urinalysis and consider blood cultures. Continue tracheostomy care, secretion control and airway management. Patient currently with PEG and tube feedings at 60 cc an hour. Nutritional support and aspiration precautions. 01/19. Temperature 100.7 overnight. Continue to monitor closely. Continue tracheostomy care, secretion control and airway management. Patient currently with PEG and tube feedings at 60 cc an hour. Nutritional support and aspiration precautions. 01/20. Continue to monitor closely. Continue tracheostomy care, secretion control and airway management. Patient currently with PEG and tube feedings at 60 cc an hour. Nutritional support and aspiration precautions. 01/21. Afebrile overnight. Continue to monitor closely. Continue tracheostomy care, secretion control and airway management. Patient currently with PEG and tube feedings at 60 cc an hour. Nutritional support and aspiration precautions. 01/22. Continue to monitor closely. Continue tracheostomy care, secretion control and airway management. Patient currently with PEG and tube feedings at 60 cc an hour. Nutritional support and aspiration precautions. 01/23. Continue tracheostomy care, secretion control and airway management. Patient currently with PEG and tube feedings at 60 cc an hour. Nutritional support and aspiration precautions. Will get routine labs tomorrow. 01/24. Labs reviewed. No abnormalities. Continue tracheostomy care, secretion control and airway management. Patient currently with PEG and tube feedings at 60 cc an hour. Nutritional support and aspiration precautions. 01/25. Temp 100.6. More sleepy today. Will get chest xray, blood culture, urinalysis, sputum cultures. Will start on empirical abx. 01/26: Vitals noted, slightly tachycardic. Follow culture work-up, continue supportive care. 01/27: Spiking low-grade temp, negative UA, sputum culture and recent blood cultures also negative. Continue to monitor off antibiotics. Continue supportive care. Pending placement. 01/28: cont to spike low grade temp, negative UA, sputum culture and recent blood cultures also negative. Continue to monitor off antibiotics. will order fpr sinus xry. Continue supportive care. Pending placement. 01/29: Continue to follow clinically, intermittently spiking low-grade temp, all recent culture work is negative, negative UA, normal respiratory jaylan 1 tracheal aspirate. Vitals noted and currently stable. Pending placement 01/30: Clinically unchanged, continue to monitor vitals, continue supportive cares. Pending placement. Discussed plan of care with RN at the bedside. 01/31 - TODATE: cont supportive care, pending placement. monitor vitals carefully. Discussed with family at the bedside. 02/06. Patient afebrile today. Continue trach care. Secretions stable today. Culture data negative so far. Awaiting placement. 02/07. Awaiting placement awaiting family member to evaluate papers. Continue trach care secretions stable. Pending placement 02/09: Intermittent fever, ?drug related, will check cxr and also labs. No new complaints. 02/10: Patient's trach dislodged today. Nevertheless respiratory status is intact attempt to reinsert was unsuccessful will monitor discussed with nursing staff to pay close attention to the patient. Considering that this was not a planned decannulation I will start the patient on continuous pulse ox until full evaluation was done by pulmonary. 02/13/2021 Vital signs stable Unresponsive secondary to anoxic encephalopathy Awaiting placement 02/14/2021 Awaiting placement 02/15/2021 Anoxic encephalopathy Awaiting placement 02/16/2021 Anoxic encephalopathy Awaiting placement 02/17/2021 Anoxic encephalopathy awaiting placement 02/18/2021 Anoxic encephalopathy awaiting placement 02/19/2021 Anoxic encephalopathy awaiting placement 02/20/2021 Anoxic encephalopathy awaiting placement 02/21/2021 Anoxic encephalopathy awaiting placement Objective - Exam Narrative Exam: Patient with tracheostomy - Constitutional Vitals: Vital Signs - 12hr 02/21/21 02/21/21 11:44 18:04 Temperature 99.1 F 98.6 F Pulse Rate 100 H 98 H Respiratory 18 18 Rate Blood Pressure 117/79 113/65 O2 Sat by Pulse 95 96 Oximetry General appearance: Present: no acute distress, well-nourished - EENT Eyes: PERRL, EOM intact ENT: hearing intact, clear oral mucosa Ears: bilateral: normal - Neck Neck: supple, normal ROM, other (Trach in place) - Respiratory Respiratory effort: normal Respiratory: bilateral: CTA - Breasts Breasts: normal - Cardiovascular Heart rate: 78 Rhythm: regular Heart Sounds: Present: S1 & S2. Absent: gallop, rub Extremities: pulses intact, No edema, normal color, Full ROM - Gastrointestinal General gastrointestinal: Present: soft, non-tender, non-distended, normal bowel sounds - Genitourinary Female genitourinary: normal - Integumentary Integumentary: clear, warm, dry - Musculoskeletal Musculoskeletal: generalized weakness - Neurologic Neurologic: moves all extremities, other - Psychiatric Psychiatric: other (Unresponsive) - Allied health notes Allied health notes reviewed: nursing, case management - Labs CBC & Chem 7: 02/12/21 04:09 02/12/21 04:09 HEART Score - HEART Score Age: < 45 Risk factors: 1-2 risk factors - Critical Actions Critical Actions: >7 pts:50-65% risk of adverse cardiac event. Early invasive measures
[2021-02-22] MEDS: ENOXAPARIN 40 MG/0.4 ML INJ SUB-Q SCH (09:23)
[2021-02-22] MEDS: FAMOTIDINE 20 MG TAB PO SCH ×2 (09:24→22:28)
[2021-02-22] MEDS: METOPROLOL TARTRATE 25 MG TAB PO SCH ×2 (09:35→22:29)
--- NOTE | 2021-02-22 16:54 | Progress Note ---
Assessment and Plan Imp: 1. Eclampsia w/ seizures s/p 2. S/p CP arrest 3. Encephalopathy, probably anoxic 4. Morbid obesity 5. DIC 6. ADOLPH 7. Acute respiratory failure, hypoxia 8. C.diff colitis 9. S/p Trach and inadvertent decannulation Rec: 1. Doing well after inadvertent decannulation, on RA, with no distress, and clear CXR 2. TFs, DVT PPx 3. Supportive care 4. Placement 5. We will sign off again; please call back if new pulmonary issues arise, or w/ any questions Plan of care reviewed w/ mother at bedside, she understands/agrees Subjective Date of service: 02/22/21 Principal diagnosis: Eclampsia/HELLP Syndrome, ADOLPH, DIC; s/p , s/p supracervical hyst Interval history: No events. Eyes open. Cannot provide history. On RA without pulm issues. Active Medications Acetaminophen (Acetaminophen 325 Mg/10.15 Ml Oral Liqd Unit Dose) 650 mg FEEDTUBE Q6H PRN PRN Reason: Non Cardiac Pain or Temp>100.5 Last Admin: 02/11/21 22:38 Dose: 650 mg Documented by: Albuterol (Albuterol 2.5 Mg/3 Ml Nebu) 2.5 mg IH Q4HRT PRN PRN Reason: Shortness Of Breath Last Admin: 11/06/20 13:04 Dose: 2.5 mg Documented by: Alprazolam (Alprazolam 0.25 Mg Tab) 0.25 mg PO Q8H PRN PRN Reason: Anxiety Last Admin: 02/21/21 21:48 Dose: 0.25 mg Documented by: Lipase/Protease/Amylase (Lipase 10,500/Protease 25,000/Amylase 43,750 (Units) Dr Barakat) 1 each FEEDTUBE PRN PRN PRN Reason: For Clogged Feeding Tube Enoxaparin Sodium (Enoxaparin 40 Mg/0.4 Ml Inj) 40 mg SUB-Q DAILY ERINN; Protocol Last Admin: 02/22/21 09:23 Dose: 40 mg Documented by: Famotidine (Famotidine 20 Mg Tab) 20 mg PO BID ERINN Last Admin: 02/22/21 09:24 Dose: 20 mg Documented by: Hydralazine HCl (Hydralazine 20 Mg/1 Ml Inj) 20 mg IV Q6H PRN PRN Reason: SBP >170 Last Admin: 10/17/20 07:20 Dose: 20 mg Documented by: Hydrophilic Ointment (Lip Therapy Vaseline) 1 applic TP DIRECT PRN PRN Reason: Dry Lips Last Admin: 02/16/21 09:56 Dose: 1 applic Documented by: Dextrose (D5w) 1,000 mls @ 30 mls/hr IV DIRECT ERINN Last Admin: 02/11/21 18:44 Dose: 30 mls/hr Documented by: Metoprolol Tartrate (Metoprolol Tartrate 25 Mg Tab) 50 mg PO BID ERINN Last Admin: 02/22/21 09:35 Dose: Not Given Documented by: Morphine Sulfate (Morphine 2 Mg/1 Ml Inj) 2 mg IV Q4H PRN PRN Reason: Pain, Moderate (4-6) Ondansetron HCl (Ondansetron 4 Mg/2 Ml Inj) 4 mg IV Q4H PRN PRN Reason: Nausea And Vomiting Last Admin: 02/10/21 13:18 Dose: 4 mg Documented by: Simple Syrup (Simple Syrup 15 Ml) 15 ml FEEDTUBE PRN PRN PRN Reason: Hypoglycemia Simple Syrup (Simple Syrup 15 Ml) 30 ml FEEDTUBE PRN PRN PRN Reason: Hypoglycemia Sodium Bicarbonate (Sodium Bicarbonate 325 Mg Tab) 325 mg FEEDTUBE PRN PRN PRN Reason: For Clogged Feeding Tube Last Admin: 12/16/20 08:19 Dose: 325 mg Documented by: Objective Vital Signs - 12hr 02/22/21 09:35 Pulse Rate 92 H Blood Pressure 103/47 Constitutional: no acute distress, alert Eyes: non-icteric ENT: oropharynx moist Neck: other (large in cirumference) Effort: normal Ascultation: Bilateral: clear Cardiovascular: regular rate and rhythm, other (no mrg) Gastrointestinal: normoactive bowel sounds, soft Extremities: no cyanosis, pink and warm Neurologic: other (eyes open; upper extremity contractures; not following commands) Psychiatric: mood appropriate, affect normal CBC and BMP: 02/12/21 04:09 02/12/21 04:09 ABG, PT/INR, D-dimer: ABG ABG pH 7.459 pH Units (7.350-7.450) H 10/26/20 10:30 POC ABG pCO2 20.7 mmHg (32.0-48.0) L 10/13/20 07:18 ABG pCO2 32.4 mm Hg 10/26/20 10:30 POC ABG pO2 137.9 mmHg (83-108) H 10/13/20 07:18 ABG pO2 112.2 mm Hg (80.0-90.0) H 10/26/20 10:30 POC ABG HCO3 14.8 10/13/20 07:18 ABG O2 Saturation 98.2 % (95.0-99.0) 10/26/20 10:30 PT/INR, D-dimer PT 13.6 Sec. (12.2-14.9) 10/21/20 13:54 INR 1.06 (0.87-1.13) 10/21/20 13:54 D-Dimer 1974.47 ng/mlDDU (0-234) H 11/11/20 13:50 Abnormal lab findings: Abnormal Labs 10/02/20 10/02/20 10/02/20 12:03 12:18 12:18 WBC 14.9 H RBC Hgb 9.1 L Hct MCV MCH 22 L MCHC 28 L RDW 17.6 H Plt Count 102 L Lymph % (Auto) [place] % (Auto) Lymph # (Auto) [place] # (Auto) Baso # (Auto) Seg Neutrophils % Seg Neuts % (Manual) 36.0 L Lymphocytes % (Manual) 49.0 H Monocytes % (Manual) Nucleated RBC % 6.0 H Seg Neutrophils # Seg Neutrophils # Man Lymphocytes # (Manual) 7.3 H Monocytes # (Manual) PT INR APTT Fibrinogen D-Dimer ABG pH POC ABG pCO2 POC ABG pO2 ABG pO2 ABG HCO3 ABG Base Excess ABG Hemoglobin ABG Oxyhemoglobin ABG Sodium ABG Potassium ABG Chloride ABG Glucose VBG pH Oxyhemoglobin Carboxyhemoglobin Sodium 134 L Potassium Chloride Carbon Dioxide 12 L BUN 6 L Creatinine Glucose 390 H POC Glucose 451 H Random Insulin C-Peptide Lactic Acid Calcium Ionized Calcium Phosphorus Magnesium AST 135 H ALT 85 H Alkaline Phosphatase 172 H Lactate Dehydrogenase 641 H NT-Pro-B Natriuret Pep Total Protein 5.4 L Albumin 2.3 L Arterial Blood Glucose Arterial Blood Ionized Calcium Urine pH Urine WBC (Auto) U Epithel Cells (Auto) Vancomycin Trough Phenytoin Crossmatch 10/02/20 10/02/20 10/02/20 12:50 13:05 13:05 WBC 38.6 H RBC Hgb 8.9 L Hct 29.0 L MCV 73 L MCH 22 L MCHC RDW 17.2 H Plt Count Lymph % (Auto) [place] % (Auto) Lymph # (Auto) [place] # (Auto) Baso # (Auto) Seg Neutrophils % Seg Neuts % (Manual) Lymphocytes % (Manual) Monocytes % (Manual) Nucleated RBC % 2.0 H Seg Neutrophils # Seg Neutrophils # Man 20.1 H Lymphocytes # (Manual) 10.4 H Monocytes # (Manual) 2.3 H PT INR APTT Fibrinogen D-Dimer ABG pH POC ABG pCO2 POC ABG pO2 ABG pO2 ABG HCO3 ABG Base Excess ABG Hemoglobin ABG Oxyhemoglobin ABG Sodium ABG Potassium ABG Chloride ABG Glucose VBG pH Oxyhemoglobin Carboxyhemoglobin Sodium Potassium Chloride Carbon Dioxide BUN Creatinine Glucose POC Glucose Random Insulin C-Peptide Lactic Acid Calcium Ionized Calcium Phosphorus Magnesium AST 184 H ALT 113 H Alkaline Phosphatase Lactate Dehydrogenase 769 H NT-Pro-B Natriuret Pep Total Protein Albumin Arterial Blood Glucose Arterial Blood Ionized Calcium Urine pH Urine WBC (Auto) U Epithel Cells (Auto) Vancomycin Trough Phenytoin Crossmatch See Detail 10/02/20 10/02/20 10/02/20 16:25 16:35 16:35 WBC RBC Hgb Hct MCV MCH MCHC RDW Plt Count Lymph % (Auto) [place] % (Auto) Lymph # (Auto) [place] # (Auto) Baso # (Auto) Seg Neutrophils % Seg Neuts % (Manual) Lymphocytes % (Manual) Monocytes % (Manual) Nucleated RBC % Seg Neutrophils # Seg Neutrophils # Man Lymphocytes # (Manual) Monocytes # (Manual) PT INR APTT Fibrinogen D-Dimer ABG pH 7.031 L* POC ABG pCO2 POC ABG pO2 ABG pO2 116.8 H ABG HCO3 12.7 L ABG Base Excess -16.9 L ABG Hemoglobin 7.8 L ABG Oxyhemoglobin ABG Sodium ABG Potassium ABG Chloride ABG Glucose VBG pH Oxyhemoglobin 94.9 L Carboxyhemoglobin Sodium Potassium Chloride Carbon Dioxide BUN Creatinine Glucose 403 H POC Glucose Random Insulin C-Peptide Lactic Acid 11.40 H* Calcium 6.3 L D Ionized Calcium Phosphorus Magnesium AST 70 H ALT Alkaline Phosphatase Lactate Dehydrogenase NT-Pro-B Natriuret Pep Total Protein 1.9 L D Albumin 1.2 L Arterial Blood Glucose Arterial Blood Ionized Calcium Urine pH Urine WBC (Auto) U Epithel Cells (Auto) Vancomycin Trough Phenytoin Crossmatch 10/02/20 10/02/20 10/02/20 18:18 18:18 22:30 WBC 11.5 H RBC 2.06 L Hgb 5.5 L* D Hct 17.3 L* D MCV MCH 27 L MCHC RDW 19.5 H Plt Count 60 L Lymph % (Auto) [place] % (Auto) Lymph # (Auto) [place] # (Auto) Baso # (Auto) Seg Neutrophils % Seg Neuts % (Manual) Lymphocytes % (Manual) 8.0 L Monocytes % (Manual) 8.0 H Nucleated RBC % 8.0 H Seg Neutrophils # Seg Neutrophils # Man Lymphocytes # (Manual) 0.9 L Monocytes # (Manual) 0.9 H PT 37.1 H INR 3.71 H APTT 135.8 H* Fibrinogen D-Dimer ABG pH 7.067 L* POC ABG pCO2 POC ABG pO2 ABG pO2 183.0 H ABG HCO3 14.1 L ABG Base Excess -15.1 L ABG Hemoglobin 7.7 L ABG Oxyhemoglobin ABG Sodium ABG Potassium ABG Chloride ABG Glucose VBG pH Oxyhemoglobin Carboxyhemoglobin Sodium Potassium Chloride Carbon Dioxide BUN Creatinine Glucose POC Glucose Random Insulin C-Peptide Lactic Acid Calcium Ionized Calcium Phosphorus Magnesium AST ALT Alkaline Phosphatase Lactate Dehydrogenase NT-Pro-B Natriuret Pep Total Protein Albumin Arterial Blood Glucose Arterial Blood Ionized Calcium Urine pH Urine WBC (Auto) U Epithel Cells (Auto) Vancomycin Trough Phenytoin Crossmatch 10/02/20 10/02/20 10/03/20 Unknown Unknown 00:01 WBC RBC Hgb Hct MCV MCH MCHC RDW Plt Count Lymph % (Auto) [place] % (Auto) Lymph # (Auto) [place] # (Auto) Baso # (Auto) Seg Neutrophils % Seg Neuts % (Manual) Lymphocytes % (Manual) Monocytes % (Manual) Nucleated RBC % Seg Neutrophils # Seg Neutrophils # Man Lymphocytes # (Manual) Monocytes # (Manual) PT 61.1 H INR 6.92 H* APTT 158.7 H* Fibrinogen < 60 L* D-Dimer > 93408 H ABG pH POC ABG pCO2 POC ABG pO2 ABG pO2 ABG HCO3 ABG Base Excess ABG Hemoglobin ABG Oxyhemoglobin ABG Sodium ABG Potassium ABG Chloride ABG Glucose VBG pH 6.949 L* Oxyhemoglobin Carboxyhemoglobin Sodium Potassium Chloride Carbon Dioxide BUN Creatinine Glucose POC Glucose 196 H Random Insulin C-Peptide Lactic Acid Calcium Ionized Calcium Phosphorus Magnesium AST ALT Alkaline Phosphatase Lactate Dehydrogenase NT-Pro-B Natriuret Pep Total Protein Albumin Arterial Blood Glucose Arterial Blood Ionized Calcium Urine pH Urine WBC (Auto) U Epithel Cells (Auto) Vancomycin Trough Phenytoin Crossmatch 10/03/20 10/03/20 10/03/20 00:40 00:40 00:40 WBC RBC Hgb Hct MCV MCH MCHC RDW Plt Count Lymph % (Auto) [place] % (Auto) Lymph # (Auto) [place] # (Auto) Baso # (Auto) Seg Neutrophils % Seg Neuts % (Manual) Lymphocytes % (Manual) Monocytes % (Manual) Nucleated RBC % Seg Neutrophils # Seg Neutrophils # Man Lymphocytes # (Manual) Monocytes # (Manual) PT 15.1 H INR 1.21 H APTT Fibrinogen D-Dimer ABG pH POC ABG pCO2 POC ABG pO2 ABG pO2 ABG HCO3 ABG Base Excess ABG Hemoglobin ABG Oxyhemoglobin ABG Sodium ABG Potassium ABG Chloride ABG Glucose VBG pH Oxyhemoglobin Carboxyhemoglobin Sodium 136 L Potassium Chloride Carbon Dioxide BUN Creatinine 1.6 H D Glucose 106 H POC Glucose Random Insulin C-Peptide Lactic Acid 5.60 H* Calcium 6.5 L Ionized Calcium Phosphorus Magnesium AST 232 H ALT 104 H Alkaline Phosphatase Lactate Dehydrogenase NT-Pro-B Natriuret Pep Total Protein 3.9 L D Albumin 2.4 L Arterial Blood Glucose Arterial Blood Ionized Calcium Urine pH Urine WBC (Auto) U Epithel Cells (Auto) Vancomycin Trough Phenytoin Crossmatch 10/03/20 10/03/20 10/03/20 02:08 02:08 02:08 WBC 17.6 H RBC 3.27 L Hgb 9.9 L D Hct 29.9 L D MCV MCH MCHC RDW 16.5 H Plt Count 75 L Lymph % (Auto) [place] % (Auto) Lymph # (Auto) [place] # (Auto) Baso # (Auto) Seg Neutrophils % Seg Neuts % (Manual) 76.0 H Lymphocytes % (Manual) Monocytes % (Manual) Nucleated RBC % 8.0 H Seg Neutrophils # Seg Neutrophils # Man 13.4 H Lymphocytes # (Manual) Monocytes # (Manual) PT INR APTT Fibrinogen D-Dimer ABG pH POC ABG pCO2 POC ABG pO2 ABG pO2 ABG HCO3 ABG Base Excess ABG Hemoglobin ABG Oxyhemoglobin ABG Sodium ABG Potassium ABG Chloride ABG Glucose VBG pH Oxyhemoglobin Carboxyhemoglobin Sodium Potassium Chloride Carbon Dioxide 19 L BUN Creatinine 1.4 H Glucose 306 H POC Glucose Random Insulin C-Peptide Lactic Acid 10.50 H* Calcium 6.4 L Ionized Calcium Phosphorus Magnesium AST ALT Alkaline Phosphatase Lactate Dehydrogenase NT-Pro-B Natriuret Pep Total Protein Albumin Arterial Blood Glucose Arterial Blood Ionized Calcium Urine pH Urine WBC (Auto) U Epithel Cells (Auto) Vancomycin Trough Phenytoin Crossmatch 10/03/20 10/03/20 10/03/20 02:42 03:59 05:31 WBC RBC Hgb Hct MCV MCH MCHC RDW Plt Count Lymph % (Auto) [place] % (Auto) Lymph # (Auto) [place] # (Auto) Baso # (Auto) Seg Neutrophils % Seg Neuts % (Manual) Lymphocytes % (Manual) Monocytes % (Manual) Nucleated RBC % Seg Neutrophils # Seg Neutrophils # Man Lymphocytes # (Manual) Monocytes # (Manual) PT INR APTT Fibrinogen D-Dimer ABG pH 7.144 L POC ABG pCO2 54.4 H POC ABG pO2 ABG pO2 ABG HCO3 ABG Base Excess ABG Hemoglobin 10.0 L ABG Oxyhemoglobin ABG Sodium ABG Potassium ABG Chloride 108.0 H ABG Glucose 306 H VBG pH Oxyhemoglobin Carboxyhemoglobin Sodium Potassium Chloride Carbon Dioxide BUN Creatinine Glucose POC Glucose 209 H Random Insulin C-Peptide Lactic Acid 9.20 H* Calcium Ionized Calcium Phosphorus Magnesium AST ALT Alkaline Phosphatase Lactate Dehydrogenase NT-Pro-B Natriuret Pep Total Protein Albumin Arterial Blood Glucose 306 H Arterial Blood Ionized Calcium 3.7 L Urine pH Urine WBC (Auto) U Epithel Cells (Auto) Vancomycin Trough Phenytoin Crossmatch 10/03/20 10/03/20 10/03/20 09:00 09:00 09:00 WBC 27.4 H RBC 2.84 L Hgb 8.5 L Hct 25.1 L MCV MCH MCHC RDW 16.1 H Plt Count 72 L Lymph % (Auto) [place] % (Auto) Lymph # (Auto) [place] # (Auto) Baso # (Auto) Seg Neutrophils % Seg Neuts % (Manual) Lymphocytes % (Manual) 11.0 L Monocytes % (Manual) Nucleated RBC % 3.0 H Seg Neutrophils # Seg Neutrophils # Man 18.4 H Lymphocytes # (Manual) Monocytes # (Manual) 1.9 H PT INR APTT Fibrinogen D-Dimer ABG pH POC ABG pCO2 POC ABG pO2 ABG pO2 ABG HCO3 ABG Base Excess ABG Hemoglobin ABG Oxyhemoglobin ABG Sodium ABG Potassium ABG Chloride ABG Glucose VBG pH Oxyhemoglobin Carboxyhemoglobin Sodium Potassium Chloride Carbon Dioxide BUN Creatinine 1.7 H Glucose 216 H POC Glucose Random Insulin C-Peptide Lactic Acid 9.20 H* Calcium 6.3 L Ionized Calcium Phosphorus Magnesium AST 331 H ALT 171 H Alkaline Phosphatase Lactate Dehydrogenase NT-Pro-B Natriuret Pep Total Protein 3.7 L Albumin 1.9 L Arterial Blood Glucose Arterial Blood Ionized Calcium Urine pH Urine WBC (Auto) U Epithel Cells (Auto) Vancomycin Trough Phenytoin Crossmatch 10/03/20 10/03/20 10/03/20 11:20 11:46 11:50 WBC 28.7 H RBC 2.67 L Hgb 8.0 L Hct 23.7 L MCV MCH MCHC RDW 16.6 H Plt Count 76 L Lymph % (Auto) [place] % (Auto) Lymph # (Auto) [place] # (Auto) Baso # (Auto) Seg Neutrophils % Seg Neuts % (Manual) Lymphocytes % (Manual) Monocytes % (Manual) Nucleated RBC % Seg Neutrophils # Seg Neutrophils # Man Lymphocytes # (Manual) Monocytes # (Manual) PT INR APTT Fibrinogen D-Dimer ABG pH POC ABG pCO2 POC ABG pO2 ABG pO2 ABG HCO3 ABG Base Excess ABG Hemoglobin ABG Oxyhemoglobin ABG Sodium ABG Potassium ABG Chloride ABG Glucose VBG pH Oxyhemoglobin Carboxyhemoglobin Sodium Potassium Chloride Carbon Dioxide BUN Creatinine Glucose POC Glucose 125 H Random Insulin C-Peptide Lactic Acid 8.00 H* Calcium Ionized Calcium Phosphorus Magnesium AST ALT Alkaline Phosphatase Lactate Dehydrogenase NT-Pro-B Natriuret Pep Total Protein Albumin Arterial Blood Glucose Arterial Blood Ionized Calcium Urine pH Urine WBC (Auto) U Epithel Cells (Auto) Vancomycin Trough Phenytoin Crossmatch 10/03/20 10/04/20 10/04/20 11:50 00:40 00:40 WBC RBC Hgb 6.8 L Hct 19.4 L* MCV MCH MCHC RDW Plt Count 49 L Lymph % (Auto) [place] % (Auto) Lymph # (Auto) [place] # (Auto) Baso # (Auto) Seg Neutrophils % Seg Neuts % (Manual) Lymphocytes % (Manual) Monocytes % (Manual) Nucleated RBC % Seg Neutrophils # Seg Neutrophils # Man Lymphocytes # (Manual) Monocytes # (Manual) PT INR APTT Fibrinogen D-Dimer ABG pH 7.244 L POC ABG pCO2 POC ABG pO2 ABG pO2 ABG HCO3 ABG Base Excess -4.5 L ABG Hemoglobin 7.3 L ABG Oxyhemoglobin ABG Sodium ABG Potassium ABG Chloride ABG Glucose VBG pH Oxyhemoglobin Carboxyhemoglobin Sodium Potassium Chloride Carbon Dioxide BUN Creatinine Glucose POC Glucose Random Insulin C-Peptide Lactic Acid Calcium Ionized Calcium Phosphorus Magnesium AST ALT Alkaline Phosphatase Lactate Dehydrogenase NT-Pro-B Natriuret Pep Total Protein Albumin Arterial Blood Glucose Arterial Blood Ionized Calcium Urine pH Urine WBC (Auto) U Epithel Cells (Auto) Vancomycin Trough Phenytoin Crossmatch 10/04/20 10/04/20 10/04/20 03:53 10:00 10:00 WBC 14.6 H RBC 2.57 L Hgb 7.6 L Hct 22.5 L MCV MCH MCHC RDW 15.8 H Plt Count 38 L Lymph % (Auto) 7.7 L [place] % (Auto) Lymph # (Auto) 1.1 L [place] # (Auto) 0.9 H Baso # (Auto) Seg Neutrophils % 85.6 H Seg Neuts % (Manual) Lymphocytes % (Manual) Monocytes % (Manual) Nucleated RBC % Seg Neutrophils # 12.5 H Seg Neutrophils # Man Lymphocytes # (Manual) Monocytes # (Manual) PT INR APTT Fibrinogen D-Dimer ABG pH POC ABG pCO2 POC ABG pO2 110.6 H ABG pO2 ABG HCO3 ABG Base Excess ABG Hemoglobin 6.7 L ABG Oxyhemoglobin ABG Sodium 132.0 L ABG Potassium ABG Chloride ABG Glucose 111 H VBG pH Oxyhemoglobin Carboxyhemoglobin Sodium 134 L D Potassium Chloride 97.6 L Carbon Dioxide BUN Creatinine 1.7 H Glucose POC Glucose Random Insulin C-Peptide Lactic Acid Calcium 6.3 L Ionized Calcium Phosphorus Magnesium AST 203 H ALT 81 H Alkaline Phosphatase Lactate Dehydrogenase NT-Pro-B Natriuret Pep Total Protein 3.9 L Albumin 2.3 L Arterial Blood Glucose 111 H Arterial Blood Ionized Calcium 3.5 L Urine pH Urine WBC (Auto) U Epithel Cells (Auto) Vancomycin Trough Phenytoin Crossmatch 10/04/20 10/04/20 10/04/20 10:00 10:00 10:14 WBC RBC Hgb Hct MCV MCH MCHC RDW Plt Count Lymph % (Auto) [place] % (Auto) Lymph # (Auto) [place] # (Auto) Baso # (Auto) Seg Neutrophils % Seg Neuts % (Manual) Lymphocytes % (Manual) Monocytes % (Manual) Nucleated RBC % Seg Neutrophils # Seg Neutrophils # Man Lymphocytes # (Manual) Monocytes # (Manual) PT INR APTT Fibrinogen D-Dimer > 85894 H ABG pH POC ABG pCO2 POC ABG pO2 ABG pO2 ABG HCO3 ABG Base Excess ABG Hemoglobin ABG Oxyhemoglobin ABG Sodium ABG Potassium ABG Chloride ABG Glucose VBG pH Oxyhemoglobin Carboxyhemoglobin Sodium Potassium Chloride Carbon Dioxide BUN Creatinine Glucose POC Glucose Random Insulin C-Peptide Lactic Acid 3.90 H* Calcium Ionized Calcium Phosphorus Magnesium AST ALT Alkaline Phosphatase Lactate Dehydrogenase NT-Pro-B Natriuret Pep 2788 H Total Protein Albumin Arterial Blood Glucose Arterial Blood Ionized Calcium Urine pH Urine WBC (Auto) U Epithel Cells (Auto) Vancomycin Trough Phenytoin Crossmatch 10/04/20 10/04/20 10/04/20 14:00 14:00 18:00 WBC 15.7 H RBC 3.17 L Hgb 9.3 L 9.6 L Hct 27.2 L 28.0 L MCV MCH MCHC RDW 16.9 H Plt Count 41 L Lymph % (Auto) 8.6 L [place] % (Auto) Lymph # (Auto) [place] # (Auto) 0.9 H Baso # (Auto) Seg Neutrophils % 85.4 H Seg Neuts % (Manual) Lymphocytes % (Manual) Monocytes % (Manual) Nucleated RBC % Seg Neutrophils # 13.4 H Seg Neutrophils # Man Lymphocytes # (Manual) Monocytes # (Manual) PT INR APTT Fibrinogen D-Dimer ABG pH POC ABG pCO2 POC ABG pO2 ABG pO2 ABG HCO3 ABG Base Excess ABG Hemoglobin ABG Oxyhemoglobin ABG Sodium ABG Potassium ABG Chloride ABG Glucose VBG pH Oxyhemoglobin Carboxyhemoglobin Sodium 133 L Potassium Chloride 96.4 L Carbon Dioxide BUN 18 H Creatinine 1.7 H Glucose POC Glucose Random Insulin C-Peptide Lactic Acid Calcium 6.3 L Ionized Calcium Phosphorus Magnesium AST ALT Alkaline Phosphatase Lactate Dehydrogenase NT-Pro-B Natriuret Pep Total Protein Albumin Arterial Blood Glucose Arterial Blood Ionized Calcium Urine pH Urine WBC (Auto) U Epithel Cells (Auto) Vancomycin Trough Phenytoin Crossmatch 10/04/20 10/04/20 10/05/20 18:00 22:00 05:00 WBC 17.6 H RBC 3.34 L Hgb 9.9 L Hct 29.4 L MCV MCH MCHC RDW 17.1 H Plt Count 56 L Lymph % (Auto) 8.5 L [place] % (Auto) Lymph # (Auto) [place] # (Auto) 1.0 H Baso # (Auto) Seg Neutrophils % 85.1 H Seg Neuts % (Manual) Lymphocytes % (Manual) Monocytes % (Manual) Nucleated RBC % Seg Neutrophils # 15.0 H Seg Neutrophils # Man Lymphocytes # (Manual) Monocytes # (Manual) PT INR APTT Fibrinogen D-Dimer ABG pH POC ABG pCO2 POC ABG pO2 ABG pO2 ABG HCO3 ABG Base Excess ABG Hemoglobin ABG Oxyhemoglobin ABG Sodium ABG Potassium ABG Chloride ABG Glucose VBG pH Oxyhemoglobin Carboxyhemoglobin Sodium 136 L Potassium Chloride Carbon Dioxide BUN 18 H Creatinine 1.7 H Glucose POC Glucose Random Insulin C-Peptide Lactic Acid 2.30 H* Calcium 6.6 L Ionized Calcium Phosphorus Magnesium AST ALT Alkaline Phosphatase Lactate Dehydrogenase NT-Pro-B Natriuret Pep Total Protein Albumin Arterial Blood Glucose Arterial Blood Ionized Calcium Urine pH Urine WBC (Auto) U Epithel Cells (Auto) Vancomycin Trough Phenytoin Crossmatch 10/05/20 10/05/20 10/05/20 05:00 05:00 05:03 WBC RBC Hgb Hct MCV MCH MCHC RDW Plt Count Lymph % (Auto) [place] % (Auto) Lymph # (Auto) [place] # (Auto) Baso # (Auto) Seg Neutrophils % Seg Neuts % (Manual) Lymphocytes % (Manual) Monocytes % (Manual) Nucleated RBC % Seg Neutrophils # Seg Neutrophils # Man Lymphocytes # (Manual) Monocytes # (Manual) PT INR APTT Fibrinogen D-Dimer ABG pH 7.458 H POC ABG pCO2 POC ABG pO2 ABG pO2 74.3 L ABG HCO3 27.5 H ABG Base Excess 3.4 H ABG Hemoglobin 10.0 L ABG Oxyhemoglobin ABG Sodium ABG Potassium ABG Chloride ABG Glucose VBG pH Oxyhemoglobin 94.9 L Carboxyhemoglobin Sodium Potassium Chloride Carbon Dioxide BUN 19 H Creatinine 1.8 H Glucose POC Glucose Random Insulin C-Peptide Lactic Acid Calcium 6.8 L Ionized Calcium 3.9 L Phosphorus Magnesium AST 225 H ALT 85 H Alkaline Phosphatase Lactate Dehydrogenase NT-Pro-B Natriuret Pep Total Protein 4.5 L Albumin 2.7 L Arterial Blood Glucose Arterial Blood Ionized Calcium Urine pH Urine WBC (Auto) U Epithel Cells (Auto) Vancomycin Trough Phenytoin Crossmatch 10/05/20 10/05/20 10/05/20 10:10 15:00 19:40 WBC RBC Hgb Hct MCV MCH MCHC RDW Plt Count Lymph % (Auto) [place] % (Auto) Lymph # (Auto) [place] # (Auto) Baso # (Auto) Seg Neutrophils % Seg Neuts % (Manual) Lymphocytes % (Manual) Monocytes % (Manual) Nucleated RBC % Seg Neutrophils # Seg Neutrophils # Man Lymphocytes # (Manual) Monocytes # (Manual) PT INR APTT Fibrinogen D-Dimer ABG pH POC ABG pCO2 POC ABG pO2 ABG pO2 ABG HCO3 ABG Base Excess ABG Hemoglobin ABG Oxyhemoglobin ABG Sodium ABG Potassium ABG Chloride ABG Glucose VBG pH Oxyhemoglobin Carboxyhemoglobin Sodium Potassium 3.5 L Chloride Carbon Dioxide 31 H 32 H BUN 19 H 19 H Creatinine 1.8 H 1.8 H Glucose POC Glucose Random Insulin C-Peptide Lactic Acid Calcium 7.0 L 7.2 L Ionized Calcium Phosphorus Magnesium 2.90 H AST ALT Alkaline Phosphatase Lactate Dehydrogenase NT-Pro-B Natriuret Pep Total Protein Albumin Arterial Blood Glucose Arterial Blood Ionized Calcium Urine pH Urine WBC (Auto) U Epithel Cells (Auto) Vancomycin Trough Phenytoin Crossmatch 10/06/20 10/06/20 10/06/20 01:05 03:12 04:00 WBC 17.1 H RBC 3.47 L Hgb Hct MCV MCH MCHC RDW 17.4 H Plt Count 82 L Lymph % (Auto) 8.3 L [place] % (Auto) Lymph # (Auto) [place] # (Auto) 1.1 H Baso # (Auto) Seg Neutrophils % 83.8 H Seg Neuts % (Manual) Lymphocytes % (Manual) Monocytes % (Manual) Nucleated RBC % Seg Neutrophils # 14.3 H Seg Neutrophils # Man Lymphocytes # (Manual) Monocytes # (Manual) PT INR APTT Fibrinogen D-Dimer ABG pH 7.474 H POC ABG pCO2 POC ABG pO2 129.5 H ABG pO2 ABG HCO3 ABG Base Excess ABG Hemoglobin 11.4 L ABG Oxyhemoglobin ABG Sodium 131.8 L ABG Potassium ABG Chloride ABG Glucose 103 H VBG pH Oxyhemoglobin Carboxyhemoglobin 0.3 L Sodium Potassium Chloride Carbon Dioxide BUN Creatinine Glucose POC Glucose Random Insulin C-Peptide Lactic Acid Calcium Ionized Calcium Phosphorus Magnesium 3.70 H AST ALT Alkaline Phosphatase Lactate Dehydrogenase NT-Pro-B Natriuret Pep Total Protein Albumin Arterial Blood Glucose 103 H Arterial Blood Ionized Calcium 4.2 L Urine pH Urine WBC (Auto) U Epithel Cells (Auto) Vancomycin Trough Phenytoin Crossmatch 10/06/20 10/06/20 10/06/20 04:00 05:31 08:12 WBC RBC Hgb Hct MCV MCH MCHC RDW Plt Count Lymph % (Auto) [place] % (Auto) Lymph # (Auto) [place] # (Auto) Baso # (Auto) Seg Neutrophils % Seg Neuts % (Manual) Lymphocytes % (Manual) Monocytes % (Manual) Nucleated RBC % Seg Neutrophils # Seg Neutrophils # Man Lymphocytes # (Manual) Monocytes # (Manual) PT INR APTT Fibrinogen D-Dimer ABG pH POC ABG pCO2 POC ABG pO2 ABG pO2 ABG HCO3 ABG Base Excess ABG Hemoglobin ABG Oxyhemoglobin ABG Sodium ABG Potassium ABG Chloride ABG Glucose VBG pH Oxyhemoglobin Carboxyhemoglobin Sodium Potassium 3.5 L Chloride Carbon Dioxide BUN 19 H Creatinine 1.8 H Glucose 102 H POC Glucose 116 H Random Insulin C-Peptide Lactic Acid Calcium 7.2 L Ionized Calcium Phosphorus Magnesium 5.40 H AST 307 H ALT 137 H Alkaline Phosphatase Lactate Dehydrogenase NT-Pro-B Natriuret Pep Total Protein 4.5 L Albumin 2.6 L Arterial Blood Glucose Arterial Blood Ionized Calcium Urine pH Urine WBC (Auto) U Epithel Cells (Auto) Vancomycin Trough Phenytoin Crossmatch 10/06/20 10/06/20 10/06/20 11:00 11:50 20:13 WBC RBC Hgb Hct MCV MCH MCHC RDW Plt Count Lymph % (Auto) [place] % (Auto) Lymph # (Auto) [place] # (Auto) Baso # (Auto) Seg Neutrophils % Seg Neuts % (Manual) Lymphocytes % (Manual) Monocytes % (Manual) Nucleated RBC % Seg Neutrophils # Seg Neutrophils # Man Lymphocytes # (Manual) Monocytes # (Manual) PT INR APTT Fibrinogen D-Dimer ABG pH POC ABG pCO2 POC ABG pO2 ABG pO2 ABG HCO3 ABG Base Excess ABG Hemoglobin ABG Oxyhemoglobin ABG Sodium ABG Potassium ABG Chloride ABG Glucose VBG pH Oxyhemoglobin Carboxyhemoglobin Sodium Potassium Chloride Carbon Dioxide BUN Creatinine Glucose POC Glucose 106 H Random Insulin C-Peptide Lactic Acid Calcium Ionized Calcium Phosphorus Magnesium 6.50 H 6.20 H AST ALT Alkaline Phosphatase Lactate Dehydrogenase NT-Pro-B Natriuret Pep Total Protein Albumin Arterial Blood Glucose Arterial Blood Ionized Calcium Urine pH Urine WBC (Auto) U Epithel Cells (Auto) Vancomycin Trough Phenytoin Crossmatch 10/06/20 10/06/20 10/06/20 20:17 22:29 23:57 WBC RBC Hgb Hct MCV MCH MCHC RDW Plt Count Lymph % (Auto) [place] % (Auto) Lymph # (Auto) [place] # (Auto) Baso # (Auto) Seg Neutrophils % Seg Neuts % (Manual) Lymphocytes % (Manual) Monocytes % (Manual) Nucleated RBC % Seg Neutrophils # Seg Neutrophils # Man Lymphocytes # (Manual) Monocytes # (Manual) PT INR APTT Fibrinogen D-Dimer ABG pH POC ABG pCO2 POC ABG pO2 ABG pO2 ABG HCO3 ABG Base Excess ABG Hemoglobin ABG Oxyhemoglobin ABG Sodium ABG Potassium ABG Chloride ABG Glucose VBG pH Oxyhemoglobin Carboxyhemoglobin Sodium Potassium Chloride Carbon Dioxide BUN Creatinine Glucose POC Glucose 112 H 126 H 133 H Random Insulin C-Peptide Lactic Acid Calcium Ionized Calcium Phosphorus Magnesium AST ALT Alkaline Phosphatase Lactate Dehydrogenase NT-Pro-B Natriuret Pep Total Protein Albumin Arterial Blood Glucose Arterial Blood Ionized Calcium Urine pH Urine WBC (Auto) U Epithel Cells (Auto) Vancomycin Trough Phenytoin Crossmatch 10/07/20 10/07/20 10/07/20 00:35 02:22 03:16 WBC RBC Hgb Hct MCV MCH MCHC RDW Plt Count Lymph % (Auto) [place] % (Auto) Lymph # (Auto) [place] # (Auto) Baso # (Auto) Seg Neutrophils % Seg Neuts % (Manual) Lymphocytes % (Manual) Monocytes % (Manual) Nucleated RBC % Seg Neutrophils # Seg Neutrophils # Man Lymphocytes # (Manual) Monocytes # (Manual) PT INR APTT Fibrinogen D-Dimer ABG pH POC ABG pCO2 POC ABG pO2 ABG pO2 ABG HCO3 ABG Base Excess ABG Hemoglobin 11.6 L ABG Oxyhemoglobin ABG Sodium ABG Potassium ABG Chloride ABG Glucose 156 H VBG pH Oxyhemoglobin Carboxyhemoglobin 0.3 L Sodium Potassium Chloride Carbon Dioxide BUN Creatinine Glucose POC Glucose 124 H Random Insulin C-Peptide Lactic Acid Calcium Ionized Calcium Phosphorus Magnesium 5.90 H AST ALT Alkaline Phosphatase Lactate Dehydrogenase NT-Pro-B Natriuret Pep Total Protein Albumin Arterial Blood Glucose 156 H Arterial Blood Ionized Calcium 4.2 L Urine pH Urine WBC (Auto) U Epithel Cells (Auto) Vancomycin Trough Phenytoin Crossmatch 10/07/20 10/07/20 10/07/20 04:06 05:45 07:05 WBC 19.2 H RBC 3.57 L Hgb Hct MCV MCH MCHC 35 H RDW 17.1 H Plt Count 129 L Lymph % (Auto) [place] % (Auto) Lymph # (Auto) [place] # (Auto) Baso # (Auto) Seg Neutrophils % Seg Neuts % (Manual) 94.0 H Lymphocytes % (Manual) 6.0 L Monocytes % (Manual) Nucleated RBC % Seg Neutrophils # Seg Neutrophils # Man 18.0 H Lymphocytes # (Manual) Monocytes # (Manual) PT INR APTT Fibrinogen D-Dimer ABG pH POC ABG pCO2 POC ABG pO2 ABG pO2 ABG HCO3 ABG Base Excess ABG Hemoglobin ABG Oxyhemoglobin ABG Sodium ABG Potassium ABG Chloride ABG Glucose VBG pH Oxyhemoglobin Carboxyhemoglobin Sodium Potassium Chloride Carbon Dioxide BUN Creatinine Glucose POC Glucose 135 H 149 H Random Insulin C-Peptide Lactic Acid Calcium Ionized Calcium Phosphorus Magnesium AST ALT Alkaline Phosphatase Lactate Dehydrogenase NT-Pro-B Natriuret Pep Total Protein Albumin Arterial Blood Glucose Arterial Blood Ionized Calcium Urine pH Urine WBC (Auto) U Epithel Cells (Auto) Vancomycin Trough Phenytoin Crossmatch 10/07/20 10/07/20 10/07/20 07:05 07:05 12:21 WBC RBC Hgb Hct MCV MCH MCHC RDW Plt Count Lymph % (Auto) [place] % (Auto) Lymph # (Auto) [place] # (Auto) Baso # (Auto) Seg Neutrophils % Seg Neuts % (Manual) Lymphocytes % (Manual) Monocytes % (Manual) Nucleated RBC % Seg Neutrophils # Seg Neutrophils # Man Lymphocytes # (Manual) Monocytes # (Manual) PT INR APTT Fibrinogen D-Dimer ABG pH POC ABG pCO2 POC ABG pO2 ABG pO2 ABG HCO3 ABG Base Excess ABG Hemoglobin ABG Oxyhemoglobin ABG Sodium ABG Potassium ABG Chloride ABG Glucose VBG pH Oxyhemoglobin Carboxyhemoglobin Sodium Potassium Chloride Carbon Dioxide BUN 21 H Creatinine 1.7 H Glucose 171 H POC Glucose 124 H Random Insulin C-Peptide Lactic Acid Calcium 7.4 L Ionized Calcium Phosphorus Magnesium 6.10 H AST 245 H ALT 147 H Alkaline Phosphatase Lactate Dehydrogenase NT-Pro-B Natriuret Pep Total Protein 5.3 L Albumin 2.8 L Arterial Blood Glucose Arterial Blood Ionized Calcium Urine pH Urine WBC (Auto) U Epithel Cells (Auto) Vancomycin Trough Phenytoin Crossmatch 10/07/20 10/07/20 10/07/20 19:52 21:00 21:50 WBC RBC Hgb Hct MCV MCH MCHC RDW Plt Count Lymph % (Auto) [place] % (Auto) Lymph # (Auto) [place] # (Auto) Baso # (Auto) Seg Neutrophils % Seg Neuts % (Manual) Lymphocytes % (Manual) Monocytes % (Manual) Nucleated RBC % Seg Neutrophils # Seg Neutrophils # Man Lymphocytes # (Manual) Monocytes # (Manual) PT INR APTT Fibrinogen D-Dimer ABG pH POC ABG pCO2 POC ABG pO2 ABG pO2 ABG HCO3 ABG Base Excess ABG Hemoglobin ABG Oxyhemoglobin ABG Sodium ABG Potassium ABG Chloride ABG Glucose VBG pH Oxyhemoglobin Carboxyhemoglobin Sodium Potassium Chloride Carbon Dioxide BUN Creatinine Glucose POC Glucose 193 H 138 H Random Insulin C-Peptide Lactic Acid Calcium Ionized Calcium 4.4 L Phosphorus Magnesium AST ALT Alkaline Phosphatase Lactate Dehydrogenase NT-Pro-B Natriuret Pep Total Protein Albumin Arterial Blood Glucose Arterial Blood Ionized Calcium Urine pH Urine WBC (Auto) U Epithel Cells (Auto) Vancomycin Trough Phenytoin Crossmatch 10/07/20 10/08/20 10/08/20 23:41 04:20 05:30 WBC RBC Hgb Hct MCV MCH MCHC RDW Plt Count Lymph % (Auto) [place] % (Auto) Lymph # (Auto) [place] # (Auto) Baso # (Auto) Seg Neutrophils % Seg Neuts % (Manual) Lymphocytes % (Manual) Monocytes % (Manual) Nucleated RBC % Seg Neutrophils # Seg Neutrophils # Man Lymphocytes # (Manual) Monocytes # (Manual) PT INR APTT Fibrinogen D-Dimer ABG pH 7.467 H POC ABG pCO2 POC ABG pO2 189.8 H ABG pO2 ABG HCO3 ABG Base Excess ABG Hemoglobin 10.8 L ABG Oxyhemoglobin ABG Sodium ABG Potassium ABG Chloride ABG Glucose 133 H VBG pH Oxyhemoglobin Carboxyhemoglobin Sodium Potassium Chloride Carbon Dioxide BUN Creatinine Glucose POC Glucose 118 H 114 H Random Insulin C-Peptide Lactic Acid Calcium Ionized Calcium Phosphorus Magnesium AST ALT Alkaline Phosphatase Lactate Dehydrogenase NT-Pro-B Natriuret Pep Total Protein Albumin Arterial Blood Glucose 133 H Arterial Blood Ionized Calcium 4.2 L Urine pH Urine WBC (Auto) U Epithel Cells (Auto) Vancomycin Trough Phenytoin Crossmatch 10/08/20 10/08/20 10/08/20 05:43 06:42 06:42 WBC 23.6 H RBC 3.54 L Hgb Hct MCV MCH MCHC RDW 17.8 H Plt Count Lymph % (Auto) [place] % (Auto) Lymph # (Auto) [place] # (Auto) Baso # (Auto) Seg Neutrophils % Seg Neuts % (Manual) 93.0 H Lymphocytes % (Manual) 3.0 L Monocytes % (Manual) Nucleated RBC % 1.0 H Seg Neutrophils # Seg Neutrophils # Man 21.9 H Lymphocytes # (Manual) 0.7 L Monocytes # (Manual) 0.9 H PT INR APTT Fibrinogen D-Dimer ABG pH POC ABG pCO2 POC ABG pO2 ABG pO2 ABG HCO3 ABG Base Excess ABG Hemoglobin ABG Oxyhemoglobin ABG Sodium ABG Potassium ABG Chloride ABG Glucose VBG pH Oxyhemoglobin Carboxyhemoglobin Sodium Potassium Chloride Carbon Dioxide BUN 28 H Creatinine 1.6 H Glucose 141 H POC Glucose 126 H Random Insulin C-Peptide Lactic Acid Calcium 7.6 L Ionized Calcium Phosphorus Magnesium AST 162 H ALT 103 H Alkaline Phosphatase Lactate Dehydrogenase NT-Pro-B Natriuret Pep Total Protein 5.4 L Albumin 2.7 L Arterial Blood Glucose Arterial Blood Ionized Calcium Urine pH Urine WBC (Auto) U Epithel Cells (Auto) Vancomycin Trough Phenytoin Crossmatch 10/08/20 10/08/20 10/08/20 11:20 16:05 20:14 WBC RBC Hgb Hct MCV MCH MCHC RDW Plt Count Lymph % (Auto) [place] % (Auto) Lymph # (Auto) [place] # (Auto) Baso # (Auto) Seg Neutrophils % Seg Neuts % (Manual) Lymphocytes % (Manual) Monocytes % (Manual) Nucleated RBC % Seg Neutrophils # Seg Neutrophils # Man Lymphocytes # (Manual) Monocytes # (Manual) PT INR APTT Fibrinogen D-Dimer ABG pH POC ABG pCO2 POC ABG pO2 ABG pO2 ABG HCO3 ABG Base Excess ABG Hemoglobin ABG Oxyhemoglobin ABG Sodium ABG Potassium ABG Chloride ABG Glucose VBG pH Oxyhemoglobin Carboxyhemoglobin Sodium Potassium Chloride Carbon Dioxide BUN Creatinine Glucose POC Glucose 127 H 172 H 147 H Random Insulin C-Peptide Lactic Acid Calcium Ionized Calcium Phosphorus Magnesium AST ALT Alkaline Phosphatase Lactate Dehydrogenase NT-Pro-B Natriuret Pep Total Protein Albumin Arterial Blood Glucose Arterial Blood Ionized Calcium Urine pH Urine WBC (Auto) U Epithel Cells (Auto) Vancomycin Trough Phenytoin Crossmatch 10/08/20 10/08/20 10/09/20 21:27 23:24 02:10 WBC RBC Hgb Hct MCV MCH MCHC RDW Plt Count Lymph % (Auto) [place] % (Auto) Lymph # (Auto) [place] # (Auto) Baso # (Auto) Seg Neutrophils % Seg Neuts % (Manual) Lymphocytes % (Manual) Monocytes % (Manual) Nucleated RBC % Seg Neutrophils # Seg Neutrophils # Man Lymphocytes # (Manual) Monocytes # (Manual) PT INR APTT Fibrinogen D-Dimer ABG pH POC ABG pCO2 POC ABG pO2 ABG pO2 ABG HCO3 ABG Base Excess ABG Hemoglobin ABG Oxyhemoglobin ABG Sodium ABG Potassium ABG Chloride ABG Glucose VBG pH Oxyhemoglobin Carboxyhemoglobin Sodium Potassium Chloride Carbon Dioxide BUN Creatinine Glucose POC Glucose 140 H 135 H 111 H Random Insulin C-Peptide Lactic Acid Calcium Ionized Calcium Phosphorus Magnesium AST ALT Alkaline Phosphatase Lactate Dehydrogenase NT-Pro-B Natriuret Pep Total Protein Albumin Arterial Blood Glucose Arterial Blood Ionized Calcium Urine pH Urine WBC (Auto) U Epithel Cells (Auto) Vancomycin Trough Phenytoin Crossmatch 10/09/20 10/09/20 10/09/20 03:44 04:39 05:46 WBC 19.7 H RBC 3.51 L Hgb Hct MCV MCH MCHC RDW 17.7 H Plt Count Lymph % (Auto) [place] % (Auto) Lymph # (Auto) [place] # (Auto) Baso # (Auto) Seg Neutrophils % Seg Neuts % (Manual) 86.0 H Lymphocytes % (Manual) 4.0 L Monocytes % (Manual) 9.0 H Nucleated RBC % Seg Neutrophils # Seg Neutrophils # Man 16.9 H Lymphocytes # (Manual) 0.8 L Monocytes # (Manual) 1.8 H PT INR APTT Fibrinogen D-Dimer ABG pH 7.513 H POC ABG pCO2 POC ABG pO2 33.6 L ABG pO2 ABG HCO3 ABG Base Excess ABG Hemoglobin 11.1 L ABG Oxyhemoglobin 70.2 L ABG Sodium ABG Potassium 3.2 L ABG Chloride 108.0 H ABG Glucose 108 H VBG pH Oxyhemoglobin Carboxyhemoglobin Sodium Potassium Chloride Carbon Dioxide BUN Creatinine Glucose POC Glucose 109 H Random Insulin C-Peptide Lactic Acid Calcium Ionized Calcium Phosphorus Magnesium AST ALT Alkaline Phosphatase Lactate Dehydrogenase NT-Pro-B Natriuret Pep Total Protein Albumin Arterial Blood Glucose 108 H Arterial Blood Ionized Calcium 4.3 L Urine pH Urine WBC (Auto) U Epithel Cells (Auto) Vancomycin Trough Phenytoin Crossmatch 10/09/20 10/10/20 10/10/20 05:46 04:00 04:00 WBC 18.4 H RBC Hgb Hct MCV MCH MCHC RDW 17.5 H Plt Count Lymph % (Auto) 9.8 L [place] % (Auto) 8.8 H Lymph # (Auto) [place] # (Auto) 1.6 H Baso # (Auto) Seg Neutrophils % 80.0 H Seg Neuts % (Manual) Lymphocytes % (Manual) Monocytes % (Manual) Nucleated RBC % Seg Neutrophils # 14.7 H Seg Neutrophils # Man Lymphocytes # (Manual) Monocytes # (Manual) PT INR APTT Fibrinogen D-Dimer ABG pH POC ABG pCO2 POC ABG pO2 ABG pO2 ABG HCO3 ABG Base Excess ABG Hemoglobin ABG Oxyhemoglobin ABG Sodium ABG Potassium ABG Chloride ABG Glucose VBG pH Oxyhemoglobin Carboxyhemoglobin Sodium 146 H Potassium 3.2 L 2.9 L* Chloride 108.9 H 112.6 H Carbon Dioxide BUN 34 H 28 H Creatinine 1.4 H 1.3 H Glucose 109 H 101 H POC Glucose Random Insulin C-Peptide Lactic Acid Calcium 7.6 L 7.8 L Ionized Calcium Phosphorus Magnesium AST 137 H 122 H ALT 99 H 81 H Alkaline Phosphatase Lactate Dehydrogenase NT-Pro-B Natriuret Pep Total Protein 5.1 L 5.2 L Albumin 2.6 L 2.7 L Arterial Blood Glucose Arterial Blood Ionized Calcium Urine pH Urine WBC (Auto) U Epithel Cells (Auto) Vancomycin Trough Phenytoin Crossmatch 10/10/20 10/10/20 10/11/20 04:42 09:50 00:44 WBC RBC Hgb Hct MCV MCH MCHC RDW Plt Count Lymph % (Auto) [place] % (Auto) Lymph # (Auto) [place] # (Auto) Baso # (Auto) Seg Neutrophils % Seg Neuts % (Manual) Lymphocytes % (Manual) Monocytes % (Manual) Nucleated RBC % Seg Neutrophils # Seg Neutrophils # Man Lymphocytes # (Manual) Monocytes # (Manual) PT INR APTT Fibrinogen D-Dimer ABG pH 7.534 H POC ABG pCO2 POC ABG pO2 ABG pO2 95.2 H ABG HCO3 ABG Base Excess ABG Hemoglobin 11.3 L ABG Oxyhemoglobin ABG Sodium ABG Potassium ABG Chloride ABG Glucose VBG pH Oxyhemoglobin Carboxyhemoglobin Sodium Potassium Chloride Carbon Dioxide BUN Creatinine Glucose POC Glucose 109 H 106 H Random Insulin C-Peptide Lactic Acid Calcium Ionized Calcium Phosphorus Magnesium AST ALT Alkaline Phosphatase Lactate Dehydrogenase NT-Pro-B Natriuret Pep Total Protein Albumin Arterial Blood Glucose Arterial Blood Ionized Calcium Urine pH Urine WBC (Auto) U Epithel Cells (Auto) Vancomycin Trough Phenytoin Crossmatch 10/11/20 10/11/20 10/11/20 04:00 04:00 06:08 WBC 27.0 H RBC Hgb Hct MCV MCH MCHC RDW 17.7 H Plt Count Lymph % (Auto) 6.3 L [place] % (Auto) Lymph # (Auto) [place] # (Auto) 1.5 H Baso # (Auto) Seg Neutrophils % 87.1 H Seg Neuts % (Manual) Lymphocytes % (Manual) Monocytes % (Manual) Nucleated RBC % Seg Neutrophils # 23.5 H Seg Neutrophils # Man Lymphocytes # (Manual) Monocytes # (Manual) PT INR APTT Fibrinogen D-Dimer ABG pH POC ABG pCO2 POC ABG pO2 ABG pO2 ABG HCO3 ABG Base Excess ABG Hemoglobin ABG Oxyhemoglobin ABG Sodium ABG Potassium ABG Chloride ABG Glucose VBG pH Oxyhemoglobin Carboxyhemoglobin Sodium Potassium 3.2 L Chloride 110.4 H Carbon Dioxide 19 L BUN 22 H Creatinine Glucose 116 H POC Glucose 107 H Random Insulin C-Peptide Lactic Acid Calcium 7.7 L Ionized Calcium Phosphorus Magnesium 1.60 L AST ALT Alkaline Phosphatase Lactate Dehydrogenase NT-Pro-B Natriuret Pep Total Protein Albumin Arterial Blood Glucose Arterial Blood Ionized Calcium Urine pH Urine WBC (Auto) U Epithel Cells (Auto) Vancomycin Trough Phenytoin Crossmatch 10/11/20 10/11/20 10/12/20 11:41 13:26 03:52 WBC RBC Hgb Hct MCV MCH MCHC RDW Plt Count Lymph % (Auto) [place] % (Auto) Lymph # (Auto) [place] # (Auto) Baso # (Auto) Seg Neutrophils % Seg Neuts % (Manual) Lymphocytes % (Manual) Monocytes % (Manual) Nucleated RBC % Seg Neutrophils # Seg Neutrophils # Man Lymphocytes # (Manual) Monocytes # (Manual) PT INR APTT Fibrinogen D-Dimer ABG pH POC ABG pCO2 POC ABG pO2 ABG pO2 ABG HCO3 ABG Base Excess ABG Hemoglobin ABG Oxyhemoglobin ABG Sodium ABG Potassium ABG Chloride ABG Glucose VBG pH Oxyhemoglobin Carboxyhemoglobin Sodium Potassium Chloride Carbon Dioxide BUN Creatinine Glucose POC Glucose 116 H 114 H Random Insulin C-Peptide Lactic Acid Calcium Ionized Calcium Phosphorus Magnesium AST ALT Alkaline Phosphatase Lactate Dehydrogenase NT-Pro-B Natriuret Pep Total Protein Albumin Arterial Blood Glucose Arterial Blood Ionized Calcium Urine pH Urine WBC (Auto) 24.0 H U Epithel Cells (Auto) Vancomycin Trough Phenytoin Crossmatch 10/12/20 10/12/20 10/12/20 04:24 14:47 21:33 WBC RBC Hgb Hct MCV MCH MCHC RDW Plt Count Lymph % (Auto) [place] % (Auto) Lymph # (Auto) [place] # (Auto) Baso # (Auto) Seg Neutrophils % Seg Neuts % (Manual) Lymphocytes % (Manual) Monocytes % (Manual) Nucleated RBC % Seg Neutrophils # Seg Neutrophils # Man Lymphocytes # (Manual) Monocytes # (Manual) PT INR APTT Fibrinogen D-Dimer ABG pH POC ABG pCO2 POC ABG pO2 ABG pO2 ABG HCO3 ABG Base Excess ABG Hemoglobin ABG Oxyhemoglobin ABG Sodium ABG Potassium ABG Chloride ABG Glucose VBG pH Oxyhemoglobin Carboxyhemoglobin Sodium Potassium Chloride 109.9 H Carbon Dioxide 13 L BUN 18 H Creatinine Glucose 119 H POC Glucose 107 H Random Insulin C-Peptide Lactic Acid Calcium 7.6 L Ionized Calcium Phosphorus Magnesium 1.60 L AST ALT Alkaline Phosphatase Lactate Dehydrogenase NT-Pro-B Natriuret Pep Total Protein Albumin Arterial Blood Glucose Arterial Blood Ionized Calcium Urine pH Urine WBC (Auto) U Epithel Cells (Auto) Vancomycin Trough Phenytoin Crossmatch 10/12/20 10/12/20 10/13/20 Unknown Unknown 07:00 WBC 24.3 H RBC 3.38 L Hgb 9.8 L Hct MCV MCH MCHC RDW 18.7 H Plt Count Lymph % (Auto) [place] % (Auto) Lymph # (Auto) [place] # (Auto) Baso # (Auto) Seg Neutrophils % Seg Neuts % (Manual) 93.5 H Lymphocytes % (Manual) 4.5 L Monocytes % (Manual) Nucleated RBC % Seg Neutrophils # Seg Neutrophils # Man 22.7 H Lymphocytes # (Manual) 1.1 L Monocytes # (Manual) PT INR APTT Fibrinogen D-Dimer ABG pH POC ABG pCO2 POC ABG pO2 ABG pO2 ABG HCO3 ABG Base Excess ABG Hemoglobin ABG Oxyhemoglobin ABG Sodium ABG Potassium ABG Chloride ABG Glucose VBG pH Oxyhemoglobin Carboxyhemoglobin Sodium 135 L D Potassium 3.1 L Chloride Carbon Dioxide 17 L BUN Creatinine Glucose 510 H* POC Glucose Random Insulin C-Peptide Lactic Acid Calcium 7.2 L Ionized Calcium Phosphorus Magnesium AST ALT Alkaline Phosphatase Lactate Dehydrogenase NT-Pro-B Natriuret Pep Total Protein Albumin Arterial Blood Glucose Arterial Blood Ionized Calcium Urine pH Urine WBC (Auto) U Epithel Cells (Auto) Vancomycin Trough Phenytoin 5.7 L Crossmatch 10/13/20 10/13/20 10/13/20 07:00 07:00 07:18 WBC 23.6 H RBC 3.26 L Hgb 9.4 L Hct 28.7 L MCV MCH MCHC RDW 18.3 H Plt Count Lymph % (Auto) [place] % (Auto) Lymph # (Auto) [place] # (Auto) Baso # (Auto) Seg Neutrophils % Seg Neuts % (Manual) Lymphocytes % (Manual) Monocytes % (Manual) Nucleated RBC % Seg Neutrophils # Seg Neutrophils # Man Lymphocytes # (Manual) Monocytes # (Manual) PT INR APTT Fibrinogen D-Dimer ABG pH 7.473 H POC ABG pCO2 20.7 L POC ABG pO2 137.9 H ABG pO2 ABG HCO3 ABG Base Excess ABG Hemoglobin 11.2 L ABG Oxyhemoglobin 98.3 H ABG Sodium 135.9 L ABG Potassium ABG Chloride 111.0 H ABG Glucose 109 H VBG pH Oxyhemoglobin Carboxyhemoglobin 0.3 L Sodium 135 L Potassium 3.5 L Chloride 109.1 H Carbon Dioxide 18 L BUN Creatinine Glucose POC Glucose Random Insulin C-Peptide Lactic Acid Calcium 7.3 L Ionized Calcium Phosphorus Magnesium 1.60 L AST ALT Alkaline Phosphatase Lactate Dehydrogenase NT-Pro-B Natriuret Pep Total Protein Albumin Arterial Blood Glucose 109 H Arterial Blood Ionized Calcium Urine pH Urine WBC (Auto) U Epithel Cells (Auto) Vancomycin Trough Phenytoin Crossmatch 10/14/20 10/14/20 10/15/20 04:00 04:00 05:50 WBC 28.6 H 23.2 H RBC 3.61 L 3.43 L Hgb 9.9 L Hct 30.0 L MCV MCH MCHC RDW 18.3 H 18.2 H Plt Count Lymph % (Auto) [place] % (Auto) Lymph # (Auto) [place] # (Auto) Baso # (Auto) Seg Neutrophils % Seg Neuts % (Manual) 88.0 H 90.0 H Lymphocytes % (Manual) 5.0 L 4.0 L Monocytes % (Manual) Nucleated RBC % Seg Neutrophils # Seg Neutrophils # Man 25.2 H 20.9 H Lymphocytes # (Manual) 0.9 L Monocytes # (Manual) 1.4 H 0.9 H PT INR APTT Fibrinogen D-Dimer ABG pH POC ABG pCO2 POC ABG pO2 ABG pO2 ABG HCO3 ABG Base Excess ABG Hemoglobin ABG Oxyhemoglobin ABG Sodium ABG Potassium ABG Chloride ABG Glucose VBG pH Oxyhemoglobin Carboxyhemoglobin Sodium Potassium Chloride 109.9 H Carbon Dioxide 17 L BUN Creatinine Glucose POC Glucose Random Insulin C-Peptide Lactic Acid Calcium Ionized Calcium Phosphorus Magnesium AST ALT Alkaline Phosphatase Lactate Dehydrogenase NT-Pro-B Natriuret Pep Total Protein Albumin Arterial Blood Glucose Arterial Blood Ionized Calcium Urine pH Urine WBC (Auto) U Epithel Cells (Auto) Vancomycin Trough Phenytoin Crossmatch 10/15/20 10/16/20 10/17/20 05:50 11:57 04:57 WBC 15.2 H RBC 3.43 L Hgb Hct MCV MCH MCHC RDW 18.1 H Plt Count Lymph % (Auto) [place] % (Auto) Lymph # (Auto) [place] # (Auto) Baso # (Auto) Seg Neutrophils % Seg Neuts % (Manual) Lymphocytes % (Manual) Monocytes % (Manual) Nucleated RBC % Seg Neutrophils # Seg Neutrophils # Man Lymphocytes # (Manual) Monocytes # (Manual) PT INR APTT Fibrinogen D-Dimer ABG pH POC ABG pCO2 POC ABG pO2 ABG pO2 ABG HCO3 ABG Base Excess ABG Hemoglobin ABG Oxyhemoglobin ABG Sodium ABG Potassium ABG Chloride ABG Glucose VBG pH Oxyhemoglobin Carboxyhemoglobin Sodium Potassium Chloride 110.3 H Carbon Dioxide 18 L BUN Creatinine Glucose 105 H POC Glucose 111 H Random Insulin C-Peptide Lactic Acid Calcium 8.3 L Ionized Calcium Phosphorus Magnesium AST ALT Alkaline Phosphatase Lactate Dehydrogenase NT-Pro-B Natriuret Pep Total Protein Albumin Arterial Blood Glucose Arterial Blood Ionized Calcium Urine pH Urine WBC (Auto) U Epithel Cells (Auto) Vancomycin Trough Phenytoin Crossmatch 10/17/20 10/17/20 10/18/20 05:25 21:16 01:31 WBC RBC Hgb Hct MCV MCH MCHC RDW Plt Count Lymph % (Auto) [place] % (Auto) Lymph # (Auto) [place] # (Auto) Baso # (Auto) Seg Neutrophils % Seg Neuts % (Manual) Lymphocytes % (Manual) Monocytes % (Manual) Nucleated RBC % Seg Neutrophils # Seg Neutrophils # Man Lymphocytes # (Manual) Monocytes # (Manual) PT INR APTT Fibrinogen D-Dimer ABG pH POC ABG pCO2 POC ABG pO2 ABG pO2 ABG HCO3 ABG Base Excess ABG Hemoglobin ABG Oxyhemoglobin ABG Sodium ABG Potassium ABG Chloride ABG Glucose VBG pH Oxyhemoglobin Carboxyhemoglobin Sodium Potassium Chloride Carbon Dioxide BUN Creatinine Glucose POC Glucose 107 H 106 H 119 H Random Insulin C-Peptide Lactic Acid Calcium Ionized Calcium Phosphorus Magnesium AST ALT Alkaline Phosphatase Lactate Dehydrogenase NT-Pro-B Natriuret Pep Total Protein Albumin Arterial Blood Glucose Arterial Blood Ionized Calcium Urine pH Urine WBC (Auto) U Epithel Cells (Auto) Vancomycin Trough Phenytoin Crossmatch 10/18/20 10/18/20 10/19/20 05:45 11:23 01:14 WBC RBC Hgb Hct MCV MCH MCHC RDW Plt Count Lymph % (Auto) [place] % (Auto) Lymph # (Auto) [place] # (Auto) Baso # (Auto) Seg Neutrophils % Seg Neuts % (Manual) Lymphocytes % (Manual) Monocytes % (Manual) Nucleated RBC % Seg Neutrophils # Seg Neutrophils # Man Lymphocytes # (Manual) Monocytes # (Manual) PT INR APTT Fibrinogen D-Dimer ABG pH POC ABG pCO2 POC ABG pO2 ABG pO2 ABG HCO3 ABG Base Excess ABG Hemoglobin ABG Oxyhemoglobin ABG Sodium ABG Potassium ABG Chloride ABG Glucose VBG pH Oxyhemoglobin Carboxyhemoglobin Sodium Potassium Chloride Carbon Dioxide BUN Creatinine Glucose POC Glucose 106 H 115 H 108 H Random Insulin C-Peptide Lactic Acid Calcium Ionized Calcium Phosphorus Magnesium AST ALT Alkaline Phosphatase Lactate Dehydrogenase NT-Pro-B Natriuret Pep Total Protein Albumin Arterial Blood Glucose Arterial Blood Ionized Calcium Urine pH Urine WBC (Auto) U Epithel Cells (Auto) Vancomycin Trough Phenytoin Crossmatch 10/19/20 10/20/20 10/20/20 09:57 05:40 07:59 WBC RBC Hgb Hct MCV MCH MCHC RDW Plt Count Lymph % (Auto) [place] % (Auto) Lymph # (Auto) [place] # (Auto) Baso # (Auto) Seg Neutrophils % Seg Neuts % (Manual) Lymphocytes % (Manual) Monocytes % (Manual) Nucleated RBC % Seg Neutrophils # Seg Neutrophils # Man Lymphocytes # (Manual) Monocytes # (Manual) PT INR APTT Fibrinogen D-Dimer ABG pH POC ABG pCO2 POC ABG pO2 ABG pO2 ABG HCO3 ABG Base Excess ABG Hemoglobin ABG Oxyhemoglobin ABG Sodium ABG Potassium ABG Chloride ABG Glucose VBG pH Oxyhemoglobin Carboxyhemoglobin Sodium Potassium Chloride Carbon Dioxide BUN Creatinine Glucose 106 H POC Glucose 122 H 109 H Random Insulin C-Peptide Lactic Acid Calcium Ionized Calcium Phosphorus Magnesium AST ALT Alkaline Phosphatase Lactate Dehydrogenase NT-Pro-B Natriuret Pep Total Protein Albumin Arterial Blood Glucose Arterial Blood Ionized Calcium Urine pH Urine WBC (Auto) U Epithel Cells (Auto) Vancomycin Trough Phenytoin Crossmatch 10/20/20 10/20/20 10/21/20 16:52 16:52 13:54 WBC 18.8 H 17.0 H RBC Hgb Hct MCV MCH MCHC RDW 17.7 H 17.8 H Plt Count 547 H 544 H Lymph % (Auto) 11.2 L [place] % (Auto) 8.1 H Lymph # (Auto) [place] # (Auto) 1.5 H Baso # (Auto) 0.2 H Seg Neutrophils % 78.8 H Seg Neuts % (Manual) Lymphocytes % (Manual) Monocytes % (Manual) Nucleated RBC % Seg Neutrophils # 14.8 H Seg Neutrophils # Man Lymphocytes # (Manual) Monocytes # (Manual) PT INR APTT Fibrinogen D-Dimer ABG pH POC ABG pCO2 POC ABG pO2 ABG pO2 ABG HCO3 ABG Base Excess ABG Hemoglobin ABG Oxyhemoglobin ABG Sodium ABG Potassium ABG Chloride ABG Glucose VBG pH Oxyhemoglobin Carboxyhemoglobin Sodium Potassium Chloride Carbon Dioxide BUN Creatinine Glucose POC Glucose Random Insulin C-Peptide Lactic Acid Calcium Ionized Calcium Phosphorus Magnesium AST ALT Alkaline Phosphatase Lactate Dehydrogenase NT-Pro-B Natriuret Pep Total Protein Albumin Arterial Blood Glucose Arterial Blood Ionized Calcium Urine pH Urine WBC (Auto) U Epithel Cells (Auto) Vancomycin Trough 34.5 H Phenytoin Crossmatch 10/21/20 10/22/20 10/23/20 13:54 07:26 05:34 WBC 18.7 H 13.0 H RBC 3.64 L 3.50 L Hgb Hct 30.0 L MCV MCH MCHC 35 H RDW 17.7 H 17.6 H Plt Count 502 H 503 H Lymph % (Auto) [place] % (Auto) Lymph # (Auto) [place] # (Auto) Baso # (Auto) Seg Neutrophils % Seg Neuts % (Manual) Lymphocytes % (Manual) Monocytes % (Manual) Nucleated RBC % Seg Neutrophils # Seg Neutrophils # Man Lymphocytes # (Manual) Monocytes # (Manual) PT INR APTT Fibrinogen D-Dimer ABG pH POC ABG pCO2 POC ABG pO2 ABG pO2 ABG HCO3 ABG Base Excess ABG Hemoglobin ABG Oxyhemoglobin ABG Sodium ABG Potassium ABG Chloride ABG Glucose VBG pH Oxyhemoglobin Carboxyhemoglobin Sodium 136 L Potassium Chloride Carbon Dioxide BUN Creatinine Glucose 120 H POC Glucose Random Insulin C-Peptide Lactic Acid Calcium Ionized Calcium Phosphorus Magnesium AST ALT Alkaline Phosphatase Lactate Dehydrogenase NT-Pro-B Natriuret Pep Total Protein Albumin Arterial Blood Glucose Arterial Blood Ionized Calcium Urine pH Urine WBC (Auto) U Epithel Cells (Auto) Vancomycin Trough Phenytoin Crossmatch 10/23/20 10/26/20 10/27/20 05:34 10:30 07:53 WBC 13.6 H RBC 3.38 L Hgb 10.0 L Hct 28.8 L MCV MCH MCHC 35 H RDW 17.6 H Plt Count Lymph % (Auto) [place] % (Auto) Lymph # (Auto) [place] # (Auto) Baso # (Auto) Seg Neutrophils % Seg Neuts % (Manual) Lymphocytes % (Manual) Monocytes % (Manual) Nucleated RBC % Seg Neutrophils # Seg Neutrophils # Man Lymphocytes # (Manual) Monocytes # (Manual) PT INR APTT Fibrinogen D-Dimer ABG pH 7.459 H POC ABG pCO2 POC ABG pO2 ABG pO2 112.2 H ABG HCO3 ABG Base Excess ABG Hemoglobin ABG Oxyhemoglobin ABG Sodium ABG Potassium ABG Chloride ABG Glucose VBG pH Oxyhemoglobin Carboxyhemoglobin Sodium 135 L Potassium Chloride Carbon Dioxide BUN Creatinine Glucose 105 H POC Glucose Random Insulin C-Peptide Lactic Acid Calcium Ionized Calcium Phosphorus Magnesium AST ALT Alkaline Phosphatase Lactate Dehydrogenase NT-Pro-B Natriuret Pep Total Protein Albumin Arterial Blood Glucose Arterial Blood Ionized Calcium Urine pH Urine WBC (Auto) U Epithel Cells (Auto) Vancomycin Trough Phenytoin Crossmatch 10/27/20 10/27/20 10/28/20 07:53 11:31 05:19 WBC RBC Hgb Hct MCV MCH MCHC RDW Plt Count Lymph % (Auto) [place] % (Auto) Lymph # (Auto) [place] # (Auto) Baso # (Auto) Seg Neutrophils % Seg Neuts % (Manual) Lymphocytes % (Manual) Monocytes % (Manual) Nucleated RBC % Seg Neutrophils # Seg Neutrophils # Man Lymphocytes # (Manual) Monocytes # (Manual) PT INR APTT Fibrinogen D-Dimer ABG pH POC ABG pCO2 POC ABG pO2 ABG pO2 ABG HCO3 ABG Base Excess ABG Hemoglobin ABG Oxyhemoglobin ABG Sodium ABG Potassium ABG Chloride ABG Glucose VBG pH Oxyhemoglobin Carboxyhemoglobin Sodium Potassium Chloride Carbon Dioxide BUN 20 H Creatinine Glucose 112 H POC Glucose 113 H 112 H Random Insulin C-Peptide Lactic Acid Calcium Ionized Calcium Phosphorus Magnesium AST 83 H ALT Alkaline Phosphatase Lactate Dehydrogenase NT-Pro-B Natriuret Pep Total Protein Albumin 3.8 L Arterial Blood Glucose Arterial Blood Ionized Calcium Urine pH Urine WBC (Auto) U Epithel Cells (Auto) Vancomycin Trough Phenytoin Crossmatch 10/29/20 10/29/20 10/29/20 07:56 07:56 11:37 WBC 13.6 H RBC Hgb Hct MCV MCH MCHC RDW 17.0 H Plt Count Lymph % (Auto) [place] % (Auto) Lymph # (Auto) [place] # (Auto) Baso # (Auto) Seg Neutrophils % Seg Neuts % (Manual) 80.0 H Lymphocytes % (Manual) Monocytes % (Manual) Nucleated RBC % Seg Neutrophils # Seg Neutrophils # Man 10.9 H Lymphocytes # (Manual) Monocytes # (Manual) PT INR APTT Fibrinogen D-Dimer ABG pH POC ABG pCO2 POC ABG pO2 ABG pO2 ABG HCO3 ABG Base Excess ABG Hemoglobin ABG Oxyhemoglobin ABG Sodium ABG Potassium ABG Chloride ABG Glucose VBG pH Oxyhemoglobin Carboxyhemoglobin Sodium Potassium Chloride Carbon Dioxide BUN Creatinine Glucose POC Glucose 108 H Random Insulin C-Peptide Lactic Acid Calcium Ionized Calcium Phosphorus 4.70 H Magnesium AST ALT Alkaline Phosphatase Lactate Dehydrogenase NT-Pro-B Natriuret Pep Total Protein Albumin Arterial Blood Glucose Arterial Blood Ionized Calcium Urine pH Urine WBC (Auto) U Epithel Cells (Auto) Vancomycin Trough Phenytoin Crossmatch 10/29/20 10/30/20 10/30/20 13:32 12:11 17:19 WBC RBC Hgb Hct MCV MCH MCHC RDW Plt Count Lymph % (Auto) [place] % (Auto) Lymph # (Auto) [place] # (Auto) Baso # (Auto) Seg Neutrophils % Seg Neuts % (Manual) Lymphocytes % (Manual) Monocytes % (Manual) Nucleated RBC % Seg Neutrophils # Seg Neutrophils # Man Lymphocytes # (Manual) Monocytes # (Manual) PT INR APTT Fibrinogen D-Dimer ABG pH POC ABG pCO2 POC ABG pO2 ABG pO2 ABG HCO3 ABG Base Excess ABG Hemoglobin ABG Oxyhemoglobin ABG Sodium ABG Potassium ABG Chloride ABG Glucose VBG pH Oxyhemoglobin Carboxyhemoglobin Sodium Potassium Chloride Carbon Dioxide BUN Creatinine Glucose POC Glucose 108 H 106 H 107 H Random Insulin C-Peptide Lactic Acid Calcium Ionized Calcium Phosphorus Magnesium AST ALT Alkaline Phosphatase Lactate Dehydrogenase NT-Pro-B Natriuret Pep Total Protein Albumin Arterial Blood Glucose Arterial Blood Ionized Calcium Urine pH Urine WBC (Auto) U Epithel Cells (Auto) Vancomycin Trough Phenytoin Crossmatch 10/31/20 10/31/20 11/01/20 03:20 05:43 04:55 WBC RBC Hgb Hct MCV MCH MCHC RDW Plt Count Lymph % (Auto) [place] % (Auto) Lymph # (Auto) [place] # (Auto) Baso # (Auto) Seg Neutrophils % Seg Neuts % (Manual) Lymphocytes % (Manual) Monocytes % (Manual) Nucleated RBC % Seg Neutrophils # Seg Neutrophils # Man Lymphocytes # (Manual) Monocytes # (Manual) PT INR APTT Fibrinogen D-Dimer ABG pH POC ABG pCO2 POC ABG pO2 ABG pO2 ABG HCO3 ABG Base Excess ABG Hemoglobin ABG Oxyhemoglobin ABG Sodium ABG Potassium ABG Chloride ABG Glucose VBG pH Oxyhemoglobin Carboxyhemoglobin Sodium Potassium Chloride Carbon Dioxide BUN Creatinine Glucose POC Glucose 108 H 115 H 108 H Random Insulin C-Peptide Lactic Acid Calcium Ionized Calcium Phosphorus Magnesium AST ALT Alkaline Phosphatase Lactate Dehydrogenase NT-Pro-B Natriuret Pep Total Protein Albumin Arterial Blood Glucose Arterial Blood Ionized Calcium Urine pH Urine WBC (Auto) U Epithel Cells (Auto) Vancomycin Trough Phenytoin Crossmatch 11/01/20 11/01/20 11/01/20 05:01 16:47 21:36 WBC RBC Hgb Hct MCV MCH MCHC RDW Plt Count Lymph % (Auto) [place] % (Auto) Lymph # (Auto) [place] # (Auto) Baso # (Auto) Seg Neutrophils % Seg Neuts % (Manual) Lymphocytes % (Manual) Monocytes % (Manual) Nucleated RBC % Seg Neutrophils # Seg Neutrophils # Man Lymphocytes # (Manual) Monocytes # (Manual) PT INR APTT Fibrinogen D-Dimer ABG pH POC ABG pCO2 POC ABG pO2 ABG pO2 ABG HCO3 ABG Base Excess ABG Hemoglobin ABG Oxyhemoglobin ABG Sodium ABG Potassium ABG Chloride ABG Glucose VBG pH Oxyhemoglobin Carboxyhemoglobin Sodium 135 L Potassium Chloride Carbon Dioxide BUN Creatinine Glucose POC Glucose 116 H 112 H Random Insulin C-Peptide Lactic Acid Calcium Ionized Calcium Phosphorus Magnesium AST 93 H ALT Alkaline Phosphatase 132 H Lactate Dehydrogenase NT-Pro-B Natriuret Pep Total Protein Albumin 3.6 L Arterial Blood Glucose Arterial Blood Ionized Calcium Urine pH Urine WBC (Auto) U Epithel Cells (Auto) Vancomycin Trough Phenytoin Crossmatch 11/02/20 11/02/20 11/02/20 17:45 19:19 19:19 WBC RBC Hgb Hct MCV MCH MCHC RDW Plt Count Lymph % (Auto) [place] % (Auto) Lymph # (Auto) [place] # (Auto) Baso # (Auto) Seg Neutrophils % Seg Neuts % (Manual) Lymphocytes % (Manual) Monocytes % (Manual) Nucleated RBC % Seg Neutrophils # Seg Neutrophils # Man Lymphocytes # (Manual) Monocytes # (Manual) PT INR APTT Fibrinogen D-Dimer ABG pH POC ABG pCO2 POC ABG pO2 ABG pO2 ABG HCO3 ABG Base Excess ABG Hemoglobin ABG Oxyhemoglobin ABG Sodium ABG Potassium ABG Chloride ABG Glucose VBG pH Oxyhemoglobin Carboxyhemoglobin Sodium Potassium Chloride Carbon Dioxide BUN Creatinine Glucose POC Glucose 107 H Random Insulin 43.2 H C-Peptide 6.23 H Lactic Acid Calcium Ionized Calcium Phosphorus Magnesium AST ALT Alkaline Phosphatase Lactate Dehydrogenase NT-Pro-B Natriuret Pep Total Protein Albumin Arterial Blood Glucose Arterial Blood Ionized Calcium Urine pH Urine WBC (Auto) U Epithel Cells (Auto) Vancomycin Trough Phenytoin Crossmatch 11/03/20 11/04/20 11/04/20 21:49 05:00 05:00 WBC 13.8 H RBC Hgb Hct MCV MCH MCHC RDW 16.6 H Plt Count Lymph % (Auto) 11.8 L [place] % (Auto) 11.0 H Lymph # (Auto) [place] # (Auto) 1.5 H Baso # (Auto) Seg Neutrophils % 75.1 H Seg Neuts % (Manual) Lymphocytes % (Manual) Monocytes % (Manual) Nucleated RBC % Seg Neutrophils # 10.4 H Seg Neutrophils # Man Lymphocytes # (Manual) Monocytes # (Manual) PT INR APTT Fibrinogen D-Dimer ABG pH POC ABG pCO2 POC ABG pO2 ABG pO2 ABG HCO3 ABG Base Excess ABG Hemoglobin ABG Oxyhemoglobin ABG Sodium ABG Potassium ABG Chloride ABG Glucose VBG pH Oxyhemoglobin Carboxyhemoglobin Sodium Potassium Chloride Carbon Dioxide BUN Creatinine Glucose 112 H POC Glucose 109 H Random Insulin C-Peptide Lactic Acid Calcium Ionized Calcium Phosphorus Magnesium AST 90 H ALT Alkaline Phosphatase Lactate Dehydrogenase NT-Pro-B Natriuret Pep Total Protein Albumin 3.8 L Arterial Blood Glucose Arterial Blood Ionized Calcium Urine pH Urine WBC (Auto) U Epithel Cells (Auto) Vancomycin Trough Phenytoin Crossmatch 11/04/20 11/04/20 11/05/20 06:03 23:47 07:47 WBC RBC Hgb Hct MCV MCH MCHC RDW Plt Count Lymph % (Auto) [place] % (Auto) Lymph # (Auto) [place] # (Auto) Baso # (Auto) Seg Neutrophils % Seg Neuts % (Manual) Lymphocytes % (Manual) Monocytes % (Manual) Nucleated RBC % Seg Neutrophils # Seg Neutrophils # Man Lymphocytes # (Manual) Monocytes # (Manual) PT INR APTT Fibrinogen D-Dimer ABG pH POC ABG pCO2 POC ABG pO2 ABG pO2 ABG HCO3 ABG Base Excess ABG Hemoglobin ABG Oxyhemoglobin ABG Sodium ABG Potassium ABG Chloride ABG Glucose VBG pH Oxyhemoglobin Carboxyhemoglobin Sodium Potassium Chloride Carbon Dioxide BUN Creatinine Glucose POC Glucose 107 H 121 H 111 H Random Insulin C-Peptide Lactic Acid Calcium Ionized Calcium Phosphorus Magnesium AST ALT Alkaline Phosphatase Lactate Dehydrogenase NT-Pro-B Natriuret Pep Total Protein Albumin Arterial Blood Glucose Arterial Blood Ionized Calcium Urine pH Urine WBC (Auto) U Epithel Cells (Auto) Vancomycin Trough Phenytoin Crossmatch 11/05/20 11/06/20 11/06/20 23:24 17:04 23:36 WBC RBC Hgb Hct MCV MCH MCHC RDW Plt Count Lymph % (Auto) [place] % (Auto) Lymph # (Auto) [place] # (Auto) Baso # (Auto) Seg Neutrophils % Seg Neuts % (Manual) Lymphocytes % (Manual) Monocytes % (Manual) Nucleated RBC % Seg Neutrophils # Seg Neutrophils # Man Lymphocytes # (Manual) Monocytes # (Manual) PT INR APTT Fibrinogen D-Dimer ABG pH POC ABG pCO2 POC ABG pO2 ABG pO2 ABG HCO3 ABG Base Excess ABG Hemoglobin ABG Oxyhemoglobin ABG Sodium ABG Potassium ABG Chloride ABG Glucose VBG pH Oxyhemoglobin Carboxyhemoglobin Sodium Potassium Chloride Carbon Dioxide BUN Creatinine Glucose POC Glucose 111 H 112 H 108 H Random Insulin C-Peptide Lactic Acid Calcium Ionized Calcium Phosphorus Magnesium AST ALT Alkaline Phosphatase Lactate Dehydrogenase NT-Pro-B Natriuret Pep Total Protein Albumin Arterial Blood Glucose Arterial Blood Ionized Calcium Urine pH Urine WBC (Auto) U Epithel Cells (Auto) Vancomycin Trough Phenytoin Crossmatch 11/07/20 11/07/20 11/07/20 03:33 04:44 04:44 WBC RBC Hgb Hct MCV MCH MCHC RDW 16.6 H Plt Count Lymph % (Auto) [place] % (Auto) 13.1 H Lymph # (Auto) [place] # (Auto) 1.3 H Baso # (Auto) Seg Neutrophils % Seg Neuts % (Manual) Lymphocytes % (Manual) Monocytes % (Manual) Nucleated RBC % Seg Neutrophils # Seg Neutrophils # Man Lymphocytes # (Manual) Monocytes # (Manual) PT INR APTT Fibrinogen D-Dimer ABG pH POC ABG pCO2 POC ABG pO2 ABG pO2 ABG HCO3 ABG Base Excess ABG Hemoglobin ABG Oxyhemoglobin ABG Sodium ABG Potassium ABG Chloride ABG Glucose VBG pH Oxyhemoglobin Carboxyhemoglobin Sodium Potassium Chloride Carbon Dioxide BUN Creatinine Glucose 103 H POC Glucose 109 H Random Insulin C-Peptide Lactic Acid Calcium Ionized Calcium Phosphorus 5.30 H Magnesium AST ALT Alkaline Phosphatase Lactate Dehydrogenase NT-Pro-B Natriuret Pep Total Protein Albumin Arterial Blood Glucose Arterial Blood Ionized Calcium Urine pH Urine WBC (Auto) U Epithel Cells (Auto) Vancomycin Trough Phenytoin Crossmatch 11/07/20 11/07/20 11/08/20 15:58 23:46 07:30 WBC RBC Hgb Hct MCV MCH MCHC RDW Plt Count Lymph % (Auto) [place] % (Auto) Lymph # (Auto) [place] # (Auto) Baso # (Auto) Seg Neutrophils % Seg Neuts % (Manual) Lymphocytes % (Manual) Monocytes % (Manual) Nucleated RBC % Seg Neutrophils # Seg Neutrophils # Man Lymphocytes # (Manual) Monocytes # (Manual) PT INR APTT Fibrinogen D-Dimer ABG pH POC ABG pCO2 POC ABG pO2 ABG pO2 ABG HCO3 ABG Base Excess ABG Hemoglobin ABG Oxyhemoglobin ABG Sodium ABG Potassium ABG Chloride ABG Glucose VBG pH Oxyhemoglobin Carboxyhemoglobin Sodium Potassium Chloride Carbon Dioxide BUN Creatinine Glucose POC Glucose 108 H 106 H 109 H Random Insulin C-Peptide Lactic Acid Calcium Ionized Calcium Phosphorus Magnesium AST ALT Alkaline Phosphatase Lactate Dehydrogenase NT-Pro-B Natriuret Pep Total Protein Albumin Arterial Blood Glucose Arterial Blood Ionized Calcium Urine pH Urine WBC (Auto) U Epithel Cells (Auto) Vancomycin Trough Phenytoin Crossmatch 11/08/20 11/08/20 11/09/20 11:48 23:32 17:10 WBC RBC Hgb Hct MCV MCH MCHC RDW Plt Count Lymph % (Auto) [place] % (Auto) Lymph # (Auto) [place] # (Auto) Baso # (Auto) Seg Neutrophils % Seg Neuts % (Manual) Lymphocytes % (Manual) Monocytes % (Manual) Nucleated RBC % Seg Neutrophils # Seg Neutrophils # Man Lymphocytes # (Manual) Monocytes # (Manual) PT INR APTT Fibrinogen D-Dimer ABG pH POC ABG pCO2 POC ABG pO2 ABG pO2 ABG HCO3 ABG Base Excess ABG Hemoglobin ABG Oxyhemoglobin ABG Sodium ABG Potassium ABG Chloride ABG Glucose VBG pH Oxyhemoglobin Carboxyhemoglobin Sodium Potassium Chloride Carbon Dioxide BUN Creatinine Glucose POC Glucose 110 H 116 H 112 H Random Insulin C-Peptide Lactic Acid Calcium Ionized Calcium Phosphorus Magnesium AST ALT Alkaline Phosphatase Lactate Dehydrogenase NT-Pro-B Natriuret Pep Total Protein Albumin Arterial Blood Glucose Arterial Blood Ionized Calcium Urine pH Urine WBC (Auto) U Epithel Cells (Auto) Vancomycin Trough Phenytoin Crossmatch 11/09/20 11/10/20 11/10/20 21:42 05:49 07:17 WBC RBC Hgb Hct MCV MCH MCHC RDW Plt Count Lymph % (Auto) [place] % (Auto) Lymph # (Auto) [place] # (Auto) Baso # (Auto) Seg Neutrophils % Seg Neuts % (Manual) Lymphocytes % (Manual) Monocytes % (Manual) Nucleated RBC % Seg Neutrophils # Seg Neutrophils # Man Lymphocytes # (Manual) Monocytes # (Manual) PT INR APTT Fibrinogen D-Dimer ABG pH POC ABG pCO2 POC ABG pO2 ABG pO2 ABG HCO3 ABG Base Excess ABG Hemoglobin ABG Oxyhemoglobin ABG Sodium ABG Potassium ABG Chloride ABG Glucose VBG pH Oxyhemoglobin Carboxyhemoglobin Sodium Potassium Chloride Carbon Dioxide BUN Creatinine Glucose POC Glucose 110 H 108 H 111 H Random Insulin C-Peptide Lactic Acid Calcium Ionized Calcium Phosphorus Magnesium AST ALT Alkaline Phosphatase Lactate Dehydrogenase NT-Pro-B Natriuret Pep Total Protein Albumin Arterial Blood Glucose Arterial Blood Ionized Calcium Urine pH Urine WBC (Auto) U Epithel Cells (Auto) Vancomycin Trough Phenytoin Crossmatch 11/10/20 11/11/20 11/11/20 20:36 04:58 11:56 WBC RBC Hgb Hct MCV MCH MCHC RDW Plt Count Lymph % (Auto) [place] % (Auto) Lymph # (Auto) [place] # (Auto) Baso # (Auto) Seg Neutrophils % Seg Neuts % (Manual) Lymphocytes % (Manual) Monocytes % (Manual) Nucleated RBC % Seg Neutrophils # Seg Neutrophils # Man Lymphocytes # (Manual) Monocytes # (Manual) PT INR APTT Fibrinogen D-Dimer ABG pH POC ABG pCO2 POC ABG pO2 ABG pO2 ABG HCO3 ABG Base Excess ABG Hemoglobin ABG Oxyhemoglobin ABG Sodium ABG Potassium ABG Chloride ABG Glucose VBG pH Oxyhemoglobin Carboxyhemoglobin Sodium Potassium Chloride Carbon Dioxide BUN Creatinine Glucose POC Glucose 111 H 109 H 109 H Random Insulin C-Peptide Lactic Acid Calcium Ionized Calcium Phosphorus Magnesium AST ALT Alkaline Phosphatase Lactate Dehydrogenase NT-Pro-B Natriuret Pep Total Protein Albumin Arterial Blood Glucose Arterial Blood Ionized Calcium Urine pH Urine WBC (Auto) U Epithel Cells (Auto) Vancomycin Trough Phenytoin Crossmatch 11/11/20 11/11/20 11/11/20 13:50 13:50 15:50 WBC RBC Hgb Hct MCV MCH MCHC RDW Plt Count Lymph % (Auto) [place] % (Auto) Lymph # (Auto) [place] # (Auto) Baso # (Auto) Seg Neutrophils % Seg Neuts % (Manual) Lymphocytes % (Manual) Monocytes % (Manual) Nucleated RBC % Seg Neutrophils # Seg Neutrophils # Man Lymphocytes # (Manual) Monocytes # (Manual) PT INR APTT Fibrinogen D-Dimer 1974.47 H ABG pH POC ABG pCO2 POC ABG pO2 ABG pO2 ABG HCO3 ABG Base Excess ABG Hemoglobin ABG Oxyhemoglobin ABG Sodium ABG Potassium ABG Chloride ABG Glucose VBG pH Oxyhemoglobin Carboxyhemoglobin Sodium Potassium Chloride Carbon Dioxide BUN Creatinine Glucose POC Glucose 107 H Random Insulin C-Peptide Lactic Acid Calcium Ionized Calcium Phosphorus Magnesium AST ALT Alkaline Phosphatase Lactate Dehydrogenase NT-Pro-B Natriuret Pep Total Protein Albumin Arterial Blood Glucose Arterial Blood Ionized Calcium Urine pH Urine WBC (Auto) > 182.0 H U Epithel Cells (Auto) Vancomycin Trough Phenytoin Crossmatch 11/11/20 11/12/20 11/12/20 23:17 11:33 22:20 WBC RBC Hgb Hct MCV MCH MCHC RDW Plt Count Lymph % (Auto) [place] % (Auto) Lymph # (Auto) [place] # (Auto) Baso # (Auto) Seg Neutrophils % Seg Neuts % (Manual) Lymphocytes % (Manual) Monocytes % (Manual) Nucleated RBC % Seg Neutrophils # Seg Neutrophils # Man Lymphocytes # (Manual) Monocytes # (Manual) PT INR APTT Fibrinogen D-Dimer ABG pH POC ABG pCO2 POC ABG pO2 ABG pO2 ABG HCO3 ABG Base Excess ABG Hemoglobin ABG Oxyhemoglobin ABG Sodium ABG Potassium ABG Chloride ABG Glucose VBG pH Oxyhemoglobin Carboxyhemoglobin Sodium Potassium Chloride Carbon Dioxide BUN Creatinine Glucose POC Glucose 119 H 111 H 107 H Random Insulin C-Peptide Lactic Acid Calcium Ionized Calcium Phosphorus Magnesium AST ALT Alkaline Phosphatase Lactate Dehydrogenase NT-Pro-B Natriuret Pep Total Protein Albumin Arterial Blood Glucose Arterial Blood Ionized Calcium Urine pH Urine WBC (Auto) U Epithel Cells (Auto) Vancomycin Trough Phenytoin Crossmatch 11/13/20 11/13/20 11/13/20 01:52 07:33 10:05 WBC RBC Hgb Hct MCV MCH MCHC RDW Plt Count Lymph % (Auto) [place] % (Auto) Lymph # (Auto) [place] # (Auto) Baso # (Auto) Seg Neutrophils % Seg Neuts % (Manual) Lymphocytes % (Manual) Monocytes % (Manual) Nucleated RBC % Seg Neutrophils # Seg Neutrophils # Man Lymphocytes # (Manual) Monocytes # (Manual) PT INR APTT Fibrinogen D-Dimer ABG pH POC ABG pCO2 POC ABG pO2 ABG pO2 ABG HCO3 ABG Base Excess ABG Hemoglobin ABG Oxyhemoglobin ABG Sodium ABG Potassium ABG Chloride ABG Glucose VBG pH Oxyhemoglobin Carboxyhemoglobin Sodium Potassium Chloride Carbon Dioxide BUN Creatinine Glucose 114 H POC Glucose 124 H 106 H Random Insulin C-Peptide Lactic Acid Calcium Ionized Calcium Phosphorus 4.60 H Magnesium AST ALT Alkaline Phosphatase Lactate Dehydrogenase NT-Pro-B Natriuret Pep Total Protein Albumin Arterial Blood Glucose Arterial Blood Ionized Calcium Urine pH Urine WBC (Auto) U Epithel Cells (Auto) Vancomycin Trough Phenytoin Crossmatch 11/13/20 11/13/20 11/14/20 11:50 17:20 05:26 WBC RBC Hgb Hct MCV MCH MCHC RDW Plt Count Lymph % (Auto) [place] % (Auto) Lymph # (Auto) [place] # (Auto) Baso # (Auto) Seg Neutrophils % Seg Neuts % (Manual) Lymphocytes % (Manual) Monocytes % (Manual) Nucleated RBC % Seg Neutrophils # Seg Neutrophils # Man Lymphocytes # (Manual) Monocytes # (Manual) PT INR APTT Fibrinogen D-Dimer ABG pH POC ABG pCO2 POC ABG pO2 ABG pO2 ABG HCO3 ABG Base Excess ABG Hemoglobin ABG Oxyhemoglobin ABG Sodium ABG Potassium ABG Chloride ABG Glucose VBG pH Oxyhemoglobin Carboxyhemoglobin Sodium Potassium Chloride Carbon Dioxide BUN Creatinine Glucose POC Glucose 113 H 110 H 110 H Random Insulin C-Peptide Lactic Acid Calcium Ionized Calcium Phosphorus Magnesium AST ALT Alkaline Phosphatase Lactate Dehydrogenase NT-Pro-B Natriuret Pep Total Protein Albumin Arterial Blood Glucose Arterial Blood Ionized Calcium Urine pH Urine WBC (Auto) U Epithel Cells (Auto) Vancomycin Trough Phenytoin Crossmatch 11/14/20 11/15/20 11/15/20 23:23 05:07 11:48 WBC RBC Hgb Hct MCV MCH MCHC RDW Plt Count Lymph % (Auto) [place] % (Auto) Lymph # (Auto) [place] # (Auto) Baso # (Auto) Seg Neutrophils % Seg Neuts % (Manual) Lymphocytes % (Manual) Monocytes % (Manual) Nucleated RBC % Seg Neutrophils # Seg Neutrophils # Man Lymphocytes # (Manual) Monocytes # (Manual) PT INR APTT Fibrinogen D-Dimer ABG pH POC ABG pCO2 POC ABG pO2 ABG pO2 ABG HCO3 ABG Base Excess ABG Hemoglobin ABG Oxyhemoglobin ABG Sodium ABG Potassium ABG Chloride ABG Glucose VBG pH Oxyhemoglobin Carboxyhemoglobin Sodium Potassium Chloride Carbon Dioxide BUN Creatinine Glucose POC Glucose 112 H 115 H 114 H Random Insulin C-Peptide Lactic Acid Calcium Ionized Calcium Phosphorus Magnesium AST ALT Alkaline Phosphatase Lactate Dehydrogenase NT-Pro-B Natriuret Pep Total Protein Albumin Arterial Blood Glucose Arterial Blood Ionized Calcium Urine pH Urine WBC (Auto) U Epithel Cells (Auto) Vancomycin Trough Phenytoin Crossmatch 11/16/20 11/17/20 11/18/20 05:06 00:17 05:04 WBC RBC Hgb Hct MCV MCH MCHC RDW Plt Count Lymph % (Auto) [place] % (Auto) Lymph # (Auto) [place] # (Auto) Baso # (Auto) Seg Neutrophils % Seg Neuts % (Manual) Lymphocytes % (Manual) Monocytes % (Manual) Nucleated RBC % Seg Neutrophils # Seg Neutrophils # Man Lymphocytes # (Manual) Monocytes # (Manual) PT INR APTT Fibrinogen D-Dimer ABG pH POC ABG pCO2 POC ABG pO2 ABG pO2 ABG HCO3 ABG Base Excess ABG Hemoglobin ABG Oxyhemoglobin ABG Sodium ABG Potassium ABG Chloride ABG Glucose VBG pH Oxyhemoglobin Carboxyhemoglobin Sodium Potassium Chloride Carbon Dioxide BUN Creatinine Glucose POC Glucose 110 H 115 H 111 H Random Insulin C-Peptide Lactic Acid Calcium Ionized Calcium Phosphorus Magnesium AST ALT Alkaline Phosphatase Lactate Dehydrogenase NT-Pro-B Natriuret Pep Total Protein Albumin Arterial Blood Glucose Arterial Blood Ionized Calcium Urine pH Urine WBC (Auto) U Epithel Cells (Auto) Vancomycin Trough Phenytoin Crossmatch 11/21/20 11/21/20 11/21/20 00:04 05:51 23:26 WBC RBC Hgb Hct MCV MCH MCHC RDW Plt Count Lymph % (Auto) [place] % (Auto) Lymph # (Auto) [place] # (Auto) Baso # (Auto) Seg Neutrophils % Seg Neuts % (Manual) Lymphocytes % (Manual) Monocytes % (Manual) Nucleated RBC % Seg Neutrophils # Seg Neutrophils # Man Lymphocytes # (Manual) Monocytes # (Manual) PT INR APTT Fibrinogen D-Dimer ABG pH POC ABG pCO2 POC ABG pO2 ABG pO2 ABG HCO3 ABG Base Excess ABG Hemoglobin ABG Oxyhemoglobin ABG Sodium ABG Potassium ABG Chloride ABG Glucose VBG pH Oxyhemoglobin Carboxyhemoglobin Sodium Potassium Chloride Carbon Dioxide BUN Creatinine Glucose POC Glucose 117 H 112 H 107 H Random Insulin C-Peptide Lactic Acid Calcium Ionized Calcium Phosphorus Magnesium AST ALT Alkaline Phosphatase Lactate Dehydrogenase NT-Pro-B Natriuret Pep Total Protein Albumin Arterial Blood Glucose Arterial Blood Ionized Calcium Urine pH Urine WBC (Auto) U Epithel Cells (Auto) Vancomycin Trough Phenytoin Crossmatch 11/22/20 11/22/20 11/22/20 05:24 11:59 23:19 WBC RBC Hgb Hct MCV MCH MCHC RDW Plt Count Lymph % (Auto) [place] % (Auto) Lymph # (Auto) [place] # (Auto) Baso # (Auto) Seg Neutrophils % Seg Neuts % (Manual) Lymphocytes % (Manual) Monocytes % (Manual) Nucleated RBC % Seg Neutrophils # Seg Neutrophils # Man Lymphocytes # (Manual) Monocytes # (Manual) PT INR APTT Fibrinogen D-Dimer ABG pH POC ABG pCO2 POC ABG pO2 ABG pO2 ABG HCO3 ABG Base Excess ABG Hemoglobin ABG Oxyhemoglobin ABG Sodium ABG Potassium ABG Chloride ABG Glucose VBG pH Oxyhemoglobin Carboxyhemoglobin Sodium Potassium Chloride Carbon Dioxide BUN Creatinine Glucose POC Glucose 120 H 111 H 112 H Random Insulin C-Peptide Lactic Acid Calcium Ionized Calcium Phosphorus Magnesium AST ALT Alkaline Phosphatase Lactate Dehydrogenase NT-Pro-B Natriuret Pep Total Protein Albumin Arterial Blood Glucose Arterial Blood Ionized Calcium Urine pH Urine WBC (Auto) U Epithel Cells (Auto) Vancomycin Trough Phenytoin Crossmatch 11/23/20 11/24/20 11/24/20 23:42 05:33 12:04 WBC RBC Hgb Hct MCV MCH MCHC RDW Plt Count Lymph % (Auto) [place] % (Auto) Lymph # (Auto) [place] # (Auto) Baso # (Auto) Seg Neutrophils % Seg Neuts % (Manual) Lymphocytes % (Manual) Monocytes % (Manual) Nucleated RBC % Seg Neutrophils # Seg Neutrophils # Man Lymphocytes # (Manual) Monocytes # (Manual) PT INR APTT Fibrinogen D-Dimer ABG pH POC ABG pCO2 POC ABG pO2 ABG pO2 ABG HCO3 ABG Base Excess ABG Hemoglobin ABG Oxyhemoglobin ABG Sodium ABG Potassium ABG Chloride ABG Glucose VBG pH Oxyhemoglobin Carboxyhemoglobin Sodium Potassium Chloride Carbon Dioxide BUN Creatinine Glucose POC Glucose 111 H 108 H 118 H Random Insulin C-Peptide Lactic Acid Calcium Ionized Calcium Phosphorus Magnesium AST ALT Alkaline Phosphatase Lactate Dehydrogenase NT-Pro-B Natriuret Pep Total Protein Albumin Arterial Blood Glucose Arterial Blood Ionized Calcium Urine pH Urine WBC (Auto) U Epithel Cells (Auto) Vancomycin Trough Phenytoin Crossmatch 11/25/20 11/26/20 11/26/20 23:11 04:37 04:37 WBC RBC Hgb Hct MCV MCH MCHC RDW 15.4 H Plt Count Lymph % (Auto) [place] % (Auto) 10.1 H Lymph # (Auto) [place] # (Auto) 1.0 H Baso # (Auto) Seg Neutrophils % Seg Neuts % (Manual) Lymphocytes % (Manual) Monocytes % (Manual) Nucleated RBC % Seg Neutrophils # Seg Neutrophils # Man Lymphocytes # (Manual) Monocytes # (Manual) PT INR APTT Fibrinogen D-Dimer ABG pH POC ABG pCO2 POC ABG pO2 ABG pO2 ABG HCO3 ABG Base Excess ABG Hemoglobin ABG Oxyhemoglobin ABG Sodium ABG Potassium ABG Chloride ABG Glucose VBG pH Oxyhemoglobin Carboxyhemoglobin Sodium Potassium Chloride Carbon Dioxide BUN Creatinine Glucose 109 H POC Glucose 115 H Random Insulin C-Peptide Lactic Acid Calcium Ionized Calcium Phosphorus Magnesium AST 51 H ALT Alkaline Phosphatase Lactate Dehydrogenase NT-Pro-B Natriuret Pep Total Protein Albumin Arterial Blood Glucose Arterial Blood Ionized Calcium Urine pH Urine WBC (Auto) U Epithel Cells (Auto) Vancomycin Trough Phenytoin Crossmatch 11/26/20 11/27/20 11/28/20 23:27 23:38 05:25 WBC RBC Hgb Hct MCV MCH MCHC RDW Plt Count Lymph % (Auto) [place] % (Auto) Lymph # (Auto) [place] # (Auto) Baso # (Auto) Seg Neutrophils % Seg Neuts % (Manual) Lymphocytes % (Manual) Monocytes % (Manual) Nucleated RBC % Seg Neutrophils # Seg Neutrophils # Man Lymphocytes # (Manual) Monocytes # (Manual) PT INR APTT Fibrinogen D-Dimer ABG pH POC ABG pCO2 POC ABG pO2 ABG pO2 ABG HCO3 ABG Base Excess ABG Hemoglobin ABG Oxyhemoglobin ABG Sodium ABG Potassium ABG Chloride ABG Glucose VBG pH Oxyhemoglobin Carboxyhemoglobin Sodium Potassium Chloride Carbon Dioxide BUN Creatinine Glucose POC Glucose 115 H 111 H 107 H Random Insulin C-Peptide Lactic Acid Calcium Ionized Calcium Phosphorus Magnesium AST ALT Alkaline Phosphatase Lactate Dehydrogenase NT-Pro-B Natriuret Pep Total Protein Albumin Arterial Blood Glucose Arterial Blood Ionized Calcium Urine pH Urine WBC (Auto) U Epithel Cells (Auto) Vancomycin Trough Phenytoin Crossmatch 11/28/20 11/29/20 11/29/20 11:45 23:38 23:46 WBC RBC Hgb Hct MCV MCH MCHC RDW Plt Count Lymph % (Auto) [place] % (Auto) Lymph # (Auto) [place] # (Auto) Baso # (Auto) Seg Neutrophils % Seg Neuts % (Manual) Lymphocytes % (Manual) Monocytes % (Manual) Nucleated RBC % Seg Neutrophils # Seg Neutrophils # Man Lymphocytes # (Manual) Monocytes # (Manual) PT INR APTT Fibrinogen D-Dimer ABG pH POC ABG pCO2 POC ABG pO2 ABG pO2 ABG HCO3 ABG Base Excess ABG Hemoglobin ABG Oxyhemoglobin ABG Sodium ABG Potassium ABG Chloride ABG Glucose VBG pH Oxyhemoglobin Carboxyhemoglobin Sodium Potassium Chloride Carbon Dioxide BUN Creatinine Glucose POC Glucose 112 H 109 H 117 H Random Insulin C-Peptide Lactic Acid Calcium Ionized Calcium Phosphorus Magnesium AST ALT Alkaline Phosphatase Lactate Dehydrogenase NT-Pro-B Natriuret Pep Total Protein Albumin Arterial Blood Glucose Arterial Blood Ionized Calcium Urine pH Urine WBC (Auto) U Epithel Cells (Auto) Vancomycin Trough Phenytoin Crossmatch 12/01/20 12/01/20 12/02/20 05:52 16:54 05:11 WBC RBC Hgb Hct MCV MCH MCHC RDW Plt Count Lymph % (Auto) [place] % (Auto) Lymph # (Auto) [place] # (Auto) Baso # (Auto) Seg Neutrophils % Seg Neuts % (Manual) Lymphocytes % (Manual) Monocytes % (Manual) Nucleated RBC % Seg Neutrophils # Seg Neutrophils # Man Lymphocytes # (Manual) Monocytes # (Manual) PT INR APTT Fibrinogen D-Dimer ABG pH POC ABG pCO2 POC ABG pO2 ABG pO2 ABG HCO3 ABG Base Excess ABG Hemoglobin ABG Oxyhemoglobin ABG Sodium ABG Potassium ABG Chloride ABG Glucose VBG pH Oxyhemoglobin Carboxyhemoglobin Sodium Potassium Chloride Carbon Dioxide BUN Creatinine Glucose POC Glucose 106 H 108 H 110 H Random Insulin C-Peptide Lactic Acid Calcium Ionized Calcium Phosphorus Magnesium AST ALT Alkaline Phosphatase Lactate Dehydrogenase NT-Pro-B Natriuret Pep Total Protein Albumin Arterial Blood Glucose Arterial Blood Ionized Calcium Urine pH Urine WBC (Auto) U Epithel Cells (Auto) Vancomycin Trough Phenytoin Crossmatch 12/02/20 12/02/20 12/03/20 18:01 23:49 05:36 WBC RBC Hgb Hct MCV MCH MCHC RDW Plt Count Lymph % (Auto) [place] % (Auto) Lymph # (Auto) [place] # (Auto) Baso # (Auto) Seg Neutrophils % Seg Neuts % (Manual) Lymphocytes % (Manual) Monocytes % (Manual) Nucleated RBC % Seg Neutrophils # Seg Neutrophils # Man Lymphocytes # (Manual) Monocytes # (Manual) PT INR APTT Fibrinogen D-Dimer ABG pH POC ABG pCO2 POC ABG pO2 ABG pO2 ABG HCO3 ABG Base Excess ABG Hemoglobin ABG Oxyhemoglobin ABG Sodium ABG Potassium ABG Chloride ABG Glucose VBG pH Oxyhemoglobin Carboxyhemoglobin Sodium Potassium Chloride Carbon Dioxide BUN Creatinine Glucose POC Glucose 120 H 111 H 109 H Random Insulin C-Peptide Lactic Acid Calcium Ionized Calcium Phosphorus Magnesium AST ALT Alkaline Phosphatase Lactate Dehydrogenase NT-Pro-B Natriuret Pep Total Protein Albumin Arterial Blood Glucose Arterial Blood Ionized Calcium Urine pH Urine WBC (Auto) U Epithel Cells (Auto) Vancomycin Trough Phenytoin Crossmatch 12/03/20 12/09/20 12/10/20 10:50 05:32 09:25 WBC RBC Hgb Hct MCV MCH MCHC RDW Plt Count Lymph % (Auto) [place] % (Auto) Lymph # (Auto) [place] # (Auto) Baso # (Auto) Seg Neutrophils % Seg Neuts % (Manual) Lymphocytes % (Manual) Monocytes % (Manual) Nucleated RBC % Seg Neutrophils # Seg Neutrophils # Man Lymphocytes # (Manual) Monocytes # (Manual) PT INR APTT Fibrinogen D-Dimer ABG pH POC ABG pCO2 POC ABG pO2 ABG pO2 ABG HCO3 ABG Base Excess ABG Hemoglobin ABG Oxyhemoglobin ABG Sodium ABG Potassium ABG Chloride ABG Glucose VBG pH Oxyhemoglobin Carboxyhemoglobin Sodium Potassium Chloride Carbon Dioxide BUN Creatinine Glucose POC Glucose 110 H 114 H Random Insulin C-Peptide Lactic Acid Calcium Ionized Calcium Phosphorus Magnesium AST ALT Alkaline Phosphatase Lactate Dehydrogenase NT-Pro-B Natriuret Pep Total Protein Albumin Arterial Blood Glucose Arterial Blood Ionized Calcium Urine pH Urine WBC (Auto) 50.0 H U Epithel Cells (Auto) Vancomycin Trough Phenytoin Crossmatch 12/10/20 12/10/20 12/13/20 09:37 09:37 05:12 WBC 12.5 H RBC Hgb Hct MCV MCH 26 L MCHC RDW Plt Count Lymph % (Auto) [place] % (Auto) Lymph # (Auto) [place] # (Auto) Baso # (Auto) Seg Neutrophils % Seg Neuts % (Manual) 81.0 H Lymphocytes % (Manual) Monocytes % (Manual) Nucleated RBC % Seg Neutrophils # Seg Neutrophils # Man 10.1 H Lymphocytes # (Manual) Monocytes # (Manual) PT INR APTT Fibrinogen D-Dimer ABG pH POC ABG pCO2 POC ABG pO2 ABG pO2 ABG HCO3 ABG Base Excess ABG Hemoglobin ABG Oxyhemoglobin ABG Sodium ABG Potassium ABG Chloride ABG Glucose VBG pH Oxyhemoglobin Carboxyhemoglobin Sodium 149 H Potassium Chloride 109.9 H Carbon Dioxide BUN 19 H Creatinine Glucose 105 H POC Glucose 112 H Random Insulin C-Peptide Lactic Acid Calcium Ionized Calcium Phosphorus Magnesium AST ALT Alkaline Phosphatase Lactate Dehydrogenase NT-Pro-B Natriuret Pep Total Protein Albumin Arterial Blood Glucose Arterial Blood Ionized Calcium Urine pH Urine WBC (Auto) U Epithel Cells (Auto) Vancomycin Trough Phenytoin Crossmatch 12/14/20 12/14/20 12/14/20 05:02 09:06 10:32 WBC RBC 5.30 H Hgb Hct 43.0 H MCV MCH 25 L MCHC RDW Plt Count Lymph % (Auto) [place] % (Auto) 7.8 H Lymph # (Auto) [place] # (Auto) Baso # (Auto) Seg Neutrophils % Seg Neuts % (Manual) Lymphocytes % (Manual) Monocytes % (Manual) Nucleated RBC % Seg Neutrophils # Seg Neutrophils # Man Lymphocytes # (Manual) Monocytes # (Manual) PT INR APTT Fibrinogen D-Dimer ABG pH POC ABG pCO2 POC ABG pO2 ABG pO2 ABG HCO3 ABG Base Excess ABG Hemoglobin ABG Oxyhemoglobin ABG Sodium ABG Potassium ABG Chloride ABG Glucose VBG pH Oxyhemoglobin Carboxyhemoglobin Sodium 155 H Potassium Chloride 117.2 H Carbon Dioxide BUN 21 H Creatinine Glucose 104 H POC Glucose 109 H Random Insulin C-Peptide Lactic Acid Calcium Ionized Calcium Phosphorus Magnesium AST 63 H ALT Alkaline Phosphatase Lactate Dehydrogenase NT-Pro-B Natriuret Pep Total Protein 8.3 H Albumin 3.8 L Arterial Blood Glucose Arterial Blood Ionized Calcium Urine pH Urine WBC (Auto) U Epithel Cells (Auto) Vancomycin Trough Phenytoin Crossmatch 12/15/20 12/15/20 12/16/20 05:40 11:56 05:42 WBC RBC Hgb Hct MCV MCH MCHC RDW Plt Count Lymph % (Auto) [place] % (Auto) Lymph # (Auto) [place] # (Auto) Baso # (Auto) Seg Neutrophils % Seg Neuts % (Manual) Lymphocytes % (Manual) Monocytes % (Manual) Nucleated RBC % Seg Neutrophils # Seg Neutrophils # Man Lymphocytes # (Manual) Monocytes # (Manual) PT INR APTT Fibrinogen D-Dimer ABG pH POC ABG pCO2 POC ABG pO2 ABG pO2 ABG HCO3 ABG Base Excess ABG Hemoglobin ABG Oxyhemoglobin ABG Sodium ABG Potassium ABG Chloride ABG Glucose VBG pH Oxyhemoglobin Carboxyhemoglobin Sodium Potassium Chloride Carbon Dioxide BUN Creatinine Glucose POC Glucose 125 H 107 H 108 H Random Insulin C-Peptide Lactic Acid Calcium Ionized Calcium Phosphorus Magnesium AST ALT Alkaline Phosphatase Lactate Dehydrogenase NT-Pro-B Natriuret Pep Total Protein Albumin Arterial Blood Glucose Arterial Blood Ionized Calcium Urine pH Urine WBC (Auto) U Epithel Cells (Auto) Vancomycin Trough Phenytoin Crossmatch 12/16/20 12/16/20 12/17/20 08:00 23:26 05:49 WBC RBC Hgb Hct MCV MCH MCHC RDW Plt Count Lymph % (Auto) [place] % (Auto) Lymph # (Auto) [place] # (Auto) Baso # (Auto) Seg Neutrophils % Seg Neuts % (Manual) Lymphocytes % (Manual) Monocytes % (Manual) Nucleated RBC % Seg Neutrophils # Seg Neutrophils # Man Lymphocytes # (Manual) Monocytes # (Manual) PT INR APTT Fibrinogen D-Dimer ABG pH POC ABG pCO2 POC ABG pO2 ABG pO2 ABG HCO3 ABG Base Excess ABG Hemoglobin ABG Oxyhemoglobin ABG Sodium ABG Potassium ABG Chloride ABG Glucose VBG pH Oxyhemoglobin Carboxyhemoglobin Sodium 156 H Potassium Chloride 117.9 H Carbon Dioxide BUN 24 H Creatinine Glucose 109 H POC Glucose 111 H 109 H Random Insulin C-Peptide Lactic Acid Calcium Ionized Calcium Phosphorus Magnesium AST ALT Alkaline Phosphatase Lactate Dehydrogenase NT-Pro-B Natriuret Pep Total Protein Albumin Arterial Blood Glucose Arterial Blood Ionized Calcium Urine pH Urine WBC (Auto) U Epithel Cells (Auto) Vancomycin Trough Phenytoin Crossmatch 12/17/20 12/17/20 12/18/20 11:41 23:27 04:57 WBC RBC 5.16 H Hgb Hct MCV MCH 25 L MCHC RDW Plt Count Lymph % (Auto) [place] % (Auto) Lymph # (Auto) [place] # (Auto) Baso # (Auto) Seg Neutrophils % Seg Neuts % (Manual) Lymphocytes % (Manual) Monocytes % (Manual) Nucleated RBC % Seg Neutrophils # Seg Neutrophils # Man Lymphocytes # (Manual) Monocytes # (Manual) PT INR APTT Fibrinogen D-Dimer ABG pH POC ABG pCO2 POC ABG pO2 ABG pO2 ABG HCO3 ABG Base Excess ABG Hemoglobin ABG Oxyhemoglobin ABG Sodium ABG Potassium ABG Chloride ABG Glucose VBG pH Oxyhemoglobin Carboxyhemoglobin Sodium Potassium Chloride Carbon Dioxide BUN Creatinine Glucose POC Glucose 108 H 108 H Random Insulin C-Peptide Lactic Acid Calcium Ionized Calcium Phosphorus Magnesium AST ALT Alkaline Phosphatase Lactate Dehydrogenase NT-Pro-B Natriuret Pep Total Protein Albumin Arterial Blood Glucose Arterial Blood Ionized Calcium Urine pH Urine WBC (Auto) U Epithel Cells (Auto) Vancomycin Trough Phenytoin Crossmatch 12/18/20 12/18/20 12/19/20 04:57 11:22 05:21 WBC RBC Hgb Hct MCV MCH MCHC RDW Plt Count Lymph % (Auto) [place] % (Auto) Lymph # (Auto) [place] # (Auto) Baso # (Auto) Seg Neutrophils % Seg Neuts % (Manual) Lymphocytes % (Manual) Monocytes % (Manual) Nucleated RBC % Seg Neutrophils # Seg Neutrophils # Man Lymphocytes # (Manual) Monocytes # (Manual) PT INR APTT Fibrinogen D-Dimer ABG pH POC ABG pCO2 POC ABG pO2 ABG pO2 ABG HCO3 ABG Base Excess ABG Hemoglobin ABG Oxyhemoglobin ABG Sodium ABG Potassium ABG Chloride ABG Glucose VBG pH Oxyhemoglobin Carboxyhemoglobin Sodium 150 H Potassium Chloride 110.8 H Carbon Dioxide BUN 20 H Creatinine Glucose POC Glucose 107 H 108 H Random Insulin C-Peptide Lactic Acid Calcium Ionized Calcium Phosphorus Magnesium AST ALT Alkaline Phosphatase Lactate Dehydrogenase NT-Pro-B Natriuret Pep Total Protein Albumin Arterial Blood Glucose Arterial Blood Ionized Calcium Urine pH Urine WBC (Auto) U Epithel Cells (Auto) Vancomycin Trough Phenytoin Crossmatch 12/19/20 12/20/20 12/22/20 23:28 23:54 11:03 WBC RBC Hgb Hct MCV MCH MCHC RDW Plt Count Lymph % (Auto) [place] % (Auto) Lymph # (Auto) [place] # (Auto) Baso # (Auto) Seg Neutrophils % Seg Neuts % (Manual) Lymphocytes % (Manual) Monocytes % (Manual) Nucleated RBC % Seg Neutrophils # Seg Neutrophils # Man Lymphocytes # (Manual) Monocytes # (Manual) PT INR APTT Fibrinogen D-Dimer ABG pH POC ABG pCO2 POC ABG pO2 ABG pO2 ABG HCO3 ABG Base Excess ABG Hemoglobin ABG Oxyhemoglobin ABG Sodium ABG Potassium ABG Chloride ABG Glucose VBG pH Oxyhemoglobin Carboxyhemoglobin Sodium Potassium Chloride Carbon Dioxide BUN Creatinine 0.5 L Glucose 110 H POC Glucose 128 H 108 H Random Insulin C-Peptide Lactic Acid Calcium Ionized Calcium Phosphorus Magnesium AST 45 H ALT Alkaline Phosphatase Lactate Dehydrogenase NT-Pro-B Natriuret Pep Total Protein Albumin 3.8 L Arterial Blood Glucose Arterial Blood Ionized Calcium Urine pH Urine WBC (Auto) U Epithel Cells (Auto) Vancomycin Trough Phenytoin Crossmatch 12/23/20 12/23/20 12/25/20 16:50 23:30 00:34 WBC RBC Hgb Hct MCV MCH MCHC RDW Plt Count Lymph % (Auto) [place] % (Auto) Lymph # (Auto) [place] # (Auto) Baso # (Auto) Seg Neutrophils % Seg Neuts % (Manual) Lymphocytes % (Manual) Monocytes % (Manual) Nucleated RBC % Seg Neutrophils # Seg Neutrophils # Man Lymphocytes # (Manual) Monocytes # (Manual) PT INR APTT Fibrinogen D-Dimer ABG pH POC ABG pCO2 POC ABG pO2 ABG pO2 ABG HCO3 ABG Base Excess ABG Hemoglobin ABG Oxyhemoglobin ABG Sodium ABG Potassium ABG Chloride ABG Glucose VBG pH Oxyhemoglobin Carboxyhemoglobin Sodium Potassium Chloride Carbon Dioxide BUN Creatinine Glucose POC Glucose 115 H 111 H 106 H Random Insulin C-Peptide Lactic Acid Calcium Ionized Calcium Phosphorus Magnesium AST ALT Alkaline Phosphatase Lactate Dehydrogenase NT-Pro-B Natriuret Pep Total Protein Albumin Arterial Blood Glucose Arterial Blood Ionized Calcium Urine pH Urine WBC (Auto) U Epithel Cells (Auto) Vancomycin Trough Phenytoin Crossmatch 12/26/20 12/26/20 12/26/20 06:14 11:49 23:00 WBC RBC Hgb Hct MCV MCH MCHC RDW Plt Count Lymph % (Auto) [place] % (Auto) Lymph # (Auto) [place] # (Auto) Baso # (Auto) Seg Neutrophils % Seg Neuts % (Manual) Lymphocytes % (Manual) Monocytes % (Manual) Nucleated RBC % Seg Neutrophils # Seg Neutrophils # Man Lymphocytes # (Manual) Monocytes # (Manual) PT INR APTT Fibrinogen D-Dimer ABG pH POC ABG pCO2 POC ABG pO2 ABG pO2 ABG HCO3 ABG Base Excess ABG Hemoglobin ABG Oxyhemoglobin ABG Sodium ABG Potassium ABG Chloride ABG Glucose VBG pH Oxyhemoglobin Carboxyhemoglobin Sodium Potassium Chloride Carbon Dioxide BUN Creatinine Glucose POC Glucose 107 H 111 H 107 H Random Insulin C-Peptide Lactic Acid Calcium Ionized Calcium Phosphorus Magnesium AST ALT Alkaline Phosphatase Lactate Dehydrogenase NT-Pro-B Natriuret Pep Total Protein Albumin Arterial Blood Glucose Arterial Blood Ionized Calcium Urine pH Urine WBC (Auto) U Epithel Cells (Auto) Vancomycin Trough Phenytoin Crossmatch 12/27/20 12/30/20 01/01/21 22:25 06:48 11:44 WBC RBC Hgb Hct MCV MCH MCHC RDW Plt Count Lymph % (Auto) [place] % (Auto) Lymph # (Auto) [place] # (Auto) Baso # (Auto) Seg Neutrophils % Seg Neuts % (Manual) Lymphocytes % (Manual) Monocytes % (Manual) Nucleated RBC % Seg Neutrophils # Seg Neutrophils # Man Lymphocytes # (Manual) Monocytes # (Manual) PT INR APTT Fibrinogen D-Dimer ABG pH POC ABG pCO2 POC ABG pO2 ABG pO2 ABG HCO3 ABG Base Excess ABG Hemoglobin ABG Oxyhemoglobin ABG Sodium ABG Potassium ABG Chloride ABG Glucose VBG pH Oxyhemoglobin Carboxyhemoglobin Sodium Potassium Chloride Carbon Dioxide BUN Creatinine Glucose POC Glucose 106 H 107 H Random Insulin C-Peptide Lactic Acid Calcium Ionized Calcium Phosphorus Magnesium AST ALT Alkaline Phosphatase Lactate Dehydrogenase NT-Pro-B Natriuret Pep Total Protein Albumin Arterial Blood Glucose Arterial Blood Ionized Calcium Urine pH Urine WBC (Auto) U Epithel Cells (Auto) 16.0 H Vancomycin Trough Phenytoin Crossmatch 01/01/21 01/02/21 01/02/21 16:21 00:32 06:47 WBC RBC Hgb Hct MCV MCH MCHC RDW Plt Count Lymph % (Auto) [place] % (Auto) Lymph # (Auto) [place] # (Auto) Baso # (Auto) Seg Neutrophils % Seg Neuts % (Manual) Lymphocytes % (Manual) Monocytes % (Manual) Nucleated RBC % Seg Neutrophils # Seg Neutrophils # Man Lymphocytes # (Manual) Monocytes # (Manual) PT INR APTT Fibrinogen D-Dimer ABG pH POC ABG pCO2 POC ABG pO2 ABG pO2 ABG HCO3 ABG Base Excess ABG Hemoglobin ABG Oxyhemoglobin ABG Sodium ABG Potassium ABG Chloride ABG Glucose VBG pH Oxyhemoglobin Carboxyhemoglobin Sodium 152 H Potassium Chloride 117.8 H Carbon Dioxide 20 L BUN 21 H Creatinine Glucose 125 H POC Glucose 106 H 113 H Random Insulin C-Peptide Lactic Acid Calcium Ionized Calcium Phosphorus Magnesium AST ALT Alkaline Phosphatase Lactate Dehydrogenase NT-Pro-B Natriuret Pep Total Protein Albumin Arterial Blood Glucose Arterial Blood Ionized Calcium Urine pH Urine WBC (Auto) U Epithel Cells (Auto) Vancomycin Trough Phenytoin Crossmatch 01/02/21 01/02/21 01/02/21 06:47 12:15 23:44 WBC RBC 5.61 H Hgb Hct 43.8 H MCV 78 L MCH 25 L MCHC RDW Plt Count Lymph % (Auto) [place] % (Auto) 9.5 H Lymph # (Auto) [place] # (Auto) 0.9 H Baso # (Auto) Seg Neutrophils % Seg Neuts % (Manual) Lymphocytes % (Manual) Monocytes % (Manual) Nucleated RBC % Seg Neutrophils # Seg Neutrophils # Man Lymphocytes # (Manual) Monocytes # (Manual) PT INR APTT Fibrinogen D-Dimer ABG pH POC ABG pCO2 POC ABG pO2 ABG pO2 ABG HCO3 ABG Base Excess ABG Hemoglobin ABG Oxyhemoglobin ABG Sodium ABG Potassium ABG Chloride ABG Glucose VBG pH Oxyhemoglobin Carboxyhemoglobin Sodium Potassium Chloride Carbon Dioxide BUN Creatinine Glucose POC Glucose 111 H 120 H Random Insulin C-Peptide Lactic Acid Calcium Ionized Calcium Phosphorus Magnesium AST ALT Alkaline Phosphatase Lactate Dehydrogenase NT-Pro-B Natriuret Pep Total Protein Albumin Arterial Blood Glucose Arterial Blood Ionized Calcium Urine pH Urine WBC (Auto) U Epithel Cells (Auto) Vancomycin Trough Phenytoin Crossmatch 01/03/21 01/03/21 01/04/21 05:04 06:18 05:56 WBC RBC Hgb Hct MCV MCH MCHC RDW Plt Count Lymph % (Auto) [place] % (Auto) Lymph # (Auto) [place] # (Auto) Baso # (Auto) Seg Neutrophils % Seg Neuts % (Manual) Lymphocytes % (Manual) Monocytes % (Manual) Nucleated RBC % Seg Neutrophils # Seg Neutrophils # Man Lymphocytes # (Manual) Monocytes # (Manual) PT INR APTT Fibrinogen D-Dimer ABG pH POC ABG pCO2 POC ABG pO2 ABG pO2 ABG HCO3 ABG Base Excess ABG Hemoglobin ABG Oxyhemoglobin ABG Sodium ABG Potassium ABG Chloride ABG Glucose VBG pH Oxyhemoglobin Carboxyhemoglobin Sodium 153 H Potassium Chloride 119.1 H 109.8 H Carbon Dioxide 20 L BUN 18 H Creatinine 0.5 L Glucose 110 H POC Glucose 113 H Random Insulin C-Peptide Lactic Acid Calcium Ionized Calcium Phosphorus Magnesium AST ALT Alkaline Phosphatase Lactate Dehydrogenase NT-Pro-B Natriuret Pep Total Protein Albumin Arterial Blood Glucose Arterial Blood Ionized Calcium Urine pH Urine WBC (Auto) U Epithel Cells (Auto) Vancomycin Trough Phenytoin Crossmatch 01/04/21 01/04/21 01/06/21 06:11 11:52 05:37 WBC RBC Hgb Hct MCV MCH MCHC RDW Plt Count Lymph % (Auto) [place] % (Auto) Lymph # (Auto) [place] # (Auto) Baso # (Auto) Seg Neutrophils % Seg Neuts % (Manual) Lymphocytes % (Manual) Monocytes % (Manual) Nucleated RBC % Seg Neutrophils # Seg Neutrophils # Man Lymphocytes # (Manual) Monocytes # (Manual) PT INR APTT Fibrinogen D-Dimer ABG pH POC ABG pCO2 POC ABG pO2 ABG pO2 ABG HCO3 ABG Base Excess ABG Hemoglobin ABG Oxyhemoglobin ABG Sodium ABG Potassium ABG Chloride ABG Glucose VBG pH Oxyhemoglobin Carboxyhemoglobin Sodium Potassium Chloride Carbon Dioxide BUN Creatinine Glucose POC Glucose 106 H 106 H 106 H Random Insulin C-Peptide Lactic Acid Calcium Ionized Calcium Phosphorus Magnesium AST ALT Alkaline Phosphatase Lactate Dehydrogenase NT-Pro-B Natriuret Pep Total Protein Albumin Arterial Blood Glucose Arterial Blood Ionized Calcium Urine pH Urine WBC (Auto) U Epithel Cells (Auto) Vancomycin Trough Phenytoin Crossmatch 01/07/21 01/08/21 01/09/21 06:32 06:02 04:27 WBC RBC 5.22 H Hgb Hct MCV 76 L MCH 25 L MCHC RDW Plt Count Lymph % (Auto) [place] % (Auto) 9.7 H Lymph # (Auto) [place] # (Auto) Baso # (Auto) Seg Neutrophils % Seg Neuts % (Manual) Lymphocytes % (Manual) Monocytes % (Manual) Nucleated RBC % Seg Neutrophils # Seg Neutrophils # Man Lymphocytes # (Manual) Monocytes # (Manual) PT INR APTT Fibrinogen D-Dimer ABG pH POC ABG pCO2 POC ABG pO2 ABG pO2 ABG HCO3 ABG Base Excess ABG Hemoglobin ABG Oxyhemoglobin ABG Sodium ABG Potassium ABG Chloride ABG Glucose VBG pH Oxyhemoglobin Carboxyhemoglobin Sodium Potassium Chloride Carbon Dioxide BUN Creatinine Glucose POC Glucose 115 H 129 H Random Insulin C-Peptide Lactic Acid Calcium Ionized Calcium Phosphorus Magnesium AST ALT Alkaline Phosphatase Lactate Dehydrogenase NT-Pro-B Natriuret Pep Total Protein Albumin Arterial Blood Glucose Arterial Blood Ionized Calcium Urine pH Urine WBC (Auto) U Epithel Cells (Auto) Vancomycin Trough Phenytoin Crossmatch 01/09/21 01/09/21 01/10/21 04:27 16:14 12:41 WBC RBC Hgb Hct MCV MCH MCHC RDW Plt Count Lymph % (Auto) [place] % (Auto) Lymph # (Auto) [place] # (Auto) Baso # (Auto) Seg Neutrophils % Seg Neuts % (Manual) Lymphocytes % (Manual) Monocytes % (Manual) Nucleated RBC % Seg Neutrophils # Seg Neutrophils # Man Lymphocytes # (Manual) Monocytes # (Manual) PT INR APTT Fibrinogen D-Dimer ABG pH POC ABG pCO2 POC ABG pO2 ABG pO2 ABG HCO3 ABG Base Excess ABG Hemoglobin ABG Oxyhemoglobin ABG Sodium ABG Potassium ABG Chloride ABG Glucose VBG pH Oxyhemoglobin Carboxyhemoglobin Sodium Potassium Chloride Carbon Dioxide BUN Creatinine 0.5 L Glucose POC Glucose 111 H 115 H Random Insulin C-Peptide Lactic Acid Calcium Ionized Calcium Phosphorus Magnesium AST ALT Alkaline Phosphatase Lactate Dehydrogenase NT-Pro-B Natriuret Pep Total Protein Albumin Arterial Blood Glucose Arterial Blood Ionized Calcium Urine pH Urine WBC (Auto) U Epithel Cells (Auto) Vancomycin Trough Phenytoin Crossmatch 01/13/21 01/17/21 01/17/21 05:48 07:40 07:40 WBC RBC 5.23 H Hgb Hct MCV 75 L MCH 24 L MCHC RDW Plt Count Lymph % (Auto) [place] % (Auto) 8.2 H Lymph # (Auto) [place] # (Auto) Baso # (Auto) Seg Neutrophils % Seg Neuts % (Manual) Lymphocytes % (Manual) Monocytes % (Manual) Nucleated RBC % Seg Neutrophils # Seg Neutrophils # Man Lymphocytes # (Manual) Monocytes # (Manual) PT INR APTT Fibrinogen D-Dimer ABG pH POC ABG pCO2 POC ABG pO2 ABG pO2 ABG HCO3 ABG Base Excess ABG Hemoglobin ABG Oxyhemoglobin ABG Sodium ABG Potassium ABG Chloride ABG Glucose VBG pH Oxyhemoglobin Carboxyhemoglobin Sodium 135 L Potassium Chloride Carbon Dioxide BUN Creatinine Glucose POC Glucose 110 H Random Insulin C-Peptide Lactic Acid Calcium Ionized Calcium Phosphorus Magnesium AST ALT Alkaline Phosphatase Lactate Dehydrogenase NT-Pro-B Natriuret Pep Total Protein Albumin Arterial Blood Glucose Arterial Blood Ionized Calcium Urine pH Urine WBC (Auto) U Epithel Cells (Auto) Vancomycin Trough Phenytoin Crossmatch 01/17/21 01/18/21 01/18/21 23:41 08:47 17:54 WBC RBC Hgb Hct MCV MCH MCHC RDW Plt Count Lymph % (Auto) [place] % (Auto) Lymph # (Auto) [place] # (Auto) Baso # (Auto) Seg Neutrophils % Seg Neuts % (Manual) Lymphocytes % (Manual) Monocytes % (Manual) Nucleated RBC % Seg Neutrophils # Seg Neutrophils # Man Lymphocytes # (Manual) Monocytes # (Manual) PT INR APTT Fibrinogen D-Dimer ABG pH POC ABG pCO2 POC ABG pO2 ABG pO2 ABG HCO3 ABG Base Excess ABG Hemoglobin ABG Oxyhemoglobin ABG Sodium ABG Potassium ABG Chloride ABG Glucose VBG pH Oxyhemoglobin Carboxyhemoglobin Sodium Potassium Chloride Carbon Dioxide BUN Creatinine Glucose POC Glucose 110 H 114 H Random Insulin C-Peptide Lactic Acid Calcium Ionized Calcium Phosphorus Magnesium AST ALT Alkaline Phosphatase Lactate Dehydrogenase NT-Pro-B Natriuret Pep Total Protein Albumin Arterial Blood Glucose Arterial Blood Ionized Calcium Urine pH 8.0 H Urine WBC (Auto) U Epithel Cells (Auto) Vancomycin Trough Phenytoin Crossmatch 01/19/21 01/19/21 01/20/21 05:18 10:47 06:10 WBC RBC Hgb Hct MCV MCH MCHC RDW Plt Count Lymph % (Auto) [place] % (Auto) Lymph # (Auto) [place] # (Auto) Baso # (Auto) Seg Neutrophils % Seg Neuts % (Manual) Lymphocytes % (Manual) Monocytes % (Manual) Nucleated RBC % Seg Neutrophils # Seg Neutrophils # Man Lymphocytes # (Manual) Monocytes # (Manual) PT INR APTT Fibrinogen D-Dimer ABG pH POC ABG pCO2 POC ABG pO2 ABG pO2 ABG HCO3 ABG Base Excess ABG Hemoglobin ABG Oxyhemoglobin ABG Sodium ABG Potassium ABG Chloride ABG Glucose VBG pH Oxyhemoglobin Carboxyhemoglobin Sodium Potassium Chloride Carbon Dioxide BUN Creatinine Glucose POC Glucose 110 H 124 H 110 H Random Insulin C-Peptide Lactic Acid Calcium Ionized Calcium Phosphorus Magnesium AST ALT Alkaline Phosphatase Lactate Dehydrogenase NT-Pro-B Natriuret Pep Total Protein Albumin Arterial Blood Glucose Arterial Blood Ionized Calcium Urine pH Urine WBC (Auto) U Epithel Cells (Auto) Vancomycin Trough Phenytoin Crossmatch 01/20/21 01/21/21 01/23/21 22:13 22:44 06:21 WBC RBC Hgb Hct MCV MCH MCHC RDW Plt Count Lymph % (Auto) [place] % (Auto) Lymph # (Auto) [place] # (Auto) Baso # (Auto) Seg Neutrophils % Seg Neuts % (Manual) Lymphocytes % (Manual) Monocytes % (Manual) Nucleated RBC % Seg Neutrophils # Seg Neutrophils # Man Lymphocytes # (Manual) Monocytes # (Manual) PT INR APTT Fibrinogen D-Dimer ABG pH POC ABG pCO2 POC ABG pO2 ABG pO2 ABG HCO3 ABG Base Excess ABG Hemoglobin ABG Oxyhemoglobin ABG Sodium ABG Potassium ABG Chloride ABG Glucose VBG pH Oxyhemoglobin Carboxyhemoglobin Sodium Potassium Chloride Carbon Dioxide BUN Creatinine Glucose POC Glucose 109 H 120 H 106 H Random Insulin C-Peptide Lactic Acid Calcium Ionized Calcium Phosphorus Magnesium AST ALT Alkaline Phosphatase Lactate Dehydrogenase NT-Pro-B Natriuret Pep Total Protein Albumin Arterial Blood Glucose Arterial Blood Ionized Calcium Urine pH Urine WBC (Auto) U Epithel Cells (Auto) Vancomycin Trough Phenytoin Crossmatch 01/23/21 01/24/21 01/24/21 23:54 04:18 04:18 WBC RBC 5.23 H Hgb Hct MCV 75 L MCH 25 L MCHC RDW Plt Count Lymph % (Auto) [place] % (Auto) 11.8 H Lymph # (Auto) [place] # (Auto) 0.9 H Baso # (Auto) Seg Neutrophils % Seg Neuts % (Manual) Lymphocytes % (Manual) Monocytes % (Manual) Nucleated RBC % Seg Neutrophils # Seg Neutrophils # Man Lymphocytes # (Manual) Monocytes # (Manual) PT INR APTT Fibrinogen D-Dimer ABG pH POC ABG pCO2 POC ABG pO2 ABG pO2 ABG HCO3 ABG Base Excess ABG Hemoglobin ABG Oxyhemoglobin ABG Sodium ABG Potassium ABG Chloride ABG Glucose VBG pH Oxyhemoglobin Carboxyhemoglobin Sodium Potassium Chloride Carbon Dioxide BUN Creatinine Glucose POC Glucose 109 H Random Insulin C-Peptide Lactic Acid Calcium Ionized Calcium Phosphorus Magnesium AST ALT Alkaline Phosphatase Lactate Dehydrogenase NT-Pro-B Natriuret Pep Total Protein Albumin 3.7 L Arterial Blood Glucose Arterial Blood Ionized Calcium Urine pH Urine WBC (Auto) U Epithel Cells (Auto) Vancomycin Trough Phenytoin Crossmatch 01/24/21 01/25/21 01/26/21 05:11 00:29 05:33 WBC RBC Hgb Hct MCV MCH MCHC RDW Plt Count Lymph % (Auto) [place] % (Auto) Lymph # (Auto) [place] # (Auto) Baso # (Auto) Seg Neutrophils % Seg Neuts % (Manual) Lymphocytes % (Manual) Monocytes % (Manual) Nucleated RBC % Seg Neutrophils # Seg Neutrophils # Man Lymphocytes # (Manual) Monocytes # (Manual) PT INR APTT Fibrinogen D-Dimer ABG pH POC ABG pCO2 POC ABG pO2 ABG pO2 ABG HCO3 ABG Base Excess ABG Hemoglobin ABG Oxyhemoglobin ABG Sodium ABG Potassium ABG Chloride ABG Glucose VBG pH Oxyhemoglobin Carboxyhemoglobin Sodium Potassium Chloride Carbon Dioxide BUN Creatinine Glucose POC Glucose 116 H 106 H 109 H Random Insulin C-Peptide Lactic Acid Calcium Ionized Calcium Phosphorus Magnesium AST ALT Alkaline Phosphatase Lactate Dehydrogenase NT-Pro-B Natriuret Pep Total Protein Albumin Arterial Blood Glucose Arterial Blood Ionized Calcium Urine pH Urine WBC (Auto) U Epithel Cells (Auto) Vancomycin Trough Phenytoin Crossmatch 01/27/21 01/27/21 01/27/21 00:05 06:32 10:58 WBC RBC Hgb Hct MCV MCH MCHC RDW Plt Count Lymph % (Auto) [place] % (Auto) Lymph # (Auto) [place] # (Auto) Baso # (Auto) Seg Neutrophils % Seg Neuts % (Manual) Lymphocytes % (Manual) Monocytes % (Manual) Nucleated RBC % Seg Neutrophils # Seg Neutrophils # Man Lymphocytes # (Manual) Monocytes # (Manual) PT INR APTT Fibrinogen D-Dimer ABG pH POC ABG pCO2 POC ABG pO2 ABG pO2 ABG HCO3 ABG Base Excess ABG Hemoglobin ABG Oxyhemoglobin ABG Sodium ABG Potassium ABG Chloride ABG Glucose VBG pH Oxyhemoglobin Carboxyhemoglobin Sodium Potassium Chloride Carbon Dioxide BUN Creatinine Glucose POC Glucose 116 H 108 H 126 H Random Insulin C-Peptide Lactic Acid Calcium Ionized Calcium Phosphorus Magnesium AST ALT Alkaline Phosphatase Lactate Dehydrogenase NT-Pro-B Natriuret Pep Total Protein Albumin Arterial Blood Glucose Arterial Blood Ionized Calcium Urine pH Urine WBC (Auto) U Epithel Cells (Auto) Vancomycin Trough Phenytoin Crossmatch 01/27/21 01/28/21 01/28/21 17:01 06:24 11:41 WBC RBC Hgb Hct MCV MCH MCHC RDW Plt Count Lymph % (Auto) [place] % (Auto) Lymph # (Auto) [place] # (Auto) Baso # (Auto) Seg Neutrophils % Seg Neuts % (Manual) Lymphocytes % (Manual) Monocytes % (Manual) Nucleated RBC % Seg Neutrophils # Seg Neutrophils # Man Lymphocytes # (Manual) Monocytes # (Manual) PT INR APTT Fibrinogen D-Dimer ABG pH POC ABG pCO2 POC ABG pO2 ABG pO2 ABG HCO3 ABG Base Excess ABG Hemoglobin ABG Oxyhemoglobin ABG Sodium ABG Potassium ABG Chloride ABG Glucose VBG pH Oxyhemoglobin Carboxyhemoglobin Sodium Potassium Chloride Carbon Dioxide BUN Creatinine Glucose POC Glucose 113 H 112 H 127 H Random Insulin C-Peptide Lactic Acid Calcium Ionized Calcium Phosphorus Magnesium AST ALT Alkaline Phosphatase Lactate Dehydrogenase NT-Pro-B Natriuret Pep Total Protein Albumin Arterial Blood Glucose Arterial Blood Ionized Calcium Urine pH Urine WBC (Auto) U Epithel Cells (Auto) Vancomycin Trough Phenytoin Crossmatch 01/28/21 01/29/21 01/29/21 17:44 05:47 12:04 WBC RBC 5.27 H Hgb Hct MCV 75 L MCH 24 L MCHC RDW Plt Count Lymph % (Auto) [place] % (Auto) 10.3 H Lymph # (Auto) [place] # (Auto) Baso # (Auto) Seg Neutrophils % Seg Neuts % (Manual) Lymphocytes % (Manual) Monocytes % (Manual) Nucleated RBC % Seg Neutrophils # Seg Neutrophils # Man Lymphocytes # (Manual) Monocytes # (Manual) PT INR APTT Fibrinogen D-Dimer ABG pH POC ABG pCO2 POC ABG pO2 ABG pO2 ABG HCO3 ABG Base Excess ABG Hemoglobin ABG Oxyhemoglobin ABG Sodium ABG Potassium ABG Chloride ABG Glucose VBG pH Oxyhemoglobin Carboxyhemoglobin Sodium Potassium Chloride Carbon Dioxide BUN Creatinine Glucose POC Glucose 108 H 107 H Random Insulin C-Peptide Lactic Acid Calcium Ionized Calcium Phosphorus Magnesium AST ALT Alkaline Phosphatase Lactate Dehydrogenase NT-Pro-B Natriuret Pep Total Protein Albumin Arterial Blood Glucose Arterial Blood Ionized Calcium Urine pH Urine WBC (Auto) U Epithel Cells (Auto) Vancomycin Trough Phenytoin Crossmatch 01/29/21 01/31/21 02/01/21 23:01 16:55 01:01 WBC RBC Hgb Hct MCV MCH MCHC RDW Plt Count Lymph % (Auto) [place] % (Auto) Lymph # (Auto) [place] # (Auto) Baso # (Auto) Seg Neutrophils % Seg Neuts % (Manual) Lymphocytes % (Manual) Monocytes % (Manual) Nucleated RBC % Seg Neutrophils # Seg Neutrophils # Man Lymphocytes # (Manual) Monocytes # (Manual) PT INR APTT Fibrinogen D-Dimer ABG pH POC ABG pCO2 POC ABG pO2 ABG pO2 ABG HCO3 ABG Base Excess ABG Hemoglobin ABG Oxyhemoglobin ABG Sodium ABG Potassium ABG Chloride ABG Glucose VBG pH Oxyhemoglobin Carboxyhemoglobin Sodium Potassium Chloride Carbon Dioxide BUN Creatinine Glucose POC Glucose 108 H 110 H 113 H Random Insulin C-Peptide Lactic Acid Calcium Ionized Calcium Phosphorus Magnesium AST ALT Alkaline Phosphatase Lactate Dehydrogenase NT-Pro-B Natriuret Pep Total Protein Albumin Arterial Blood Glucose Arterial Blood Ionized Calcium Urine pH Urine WBC (Auto) U Epithel Cells (Auto) Vancomycin Trough Phenytoin Crossmatch 02/03/21 02/03/21 02/06/21 06:52 07:17 06:42 WBC RBC Hgb Hct MCV MCH MCHC RDW Plt Count Lymph % (Auto) [place] % (Auto) Lymph # (Auto) [place] # (Auto) Baso # (Auto) Seg Neutrophils % Seg Neuts % (Manual) Lymphocytes % (Manual) Monocytes % (Manual) Nucleated RBC % Seg Neutrophils # Seg Neutrophils # Man Lymphocytes # (Manual) Monocytes # (Manual) PT INR APTT Fibrinogen D-Dimer ABG pH POC ABG pCO2 POC ABG pO2 ABG pO2 ABG HCO3 ABG Base Excess ABG Hemoglobin ABG Oxyhemoglobin ABG Sodium ABG Potassium ABG Chloride ABG Glucose VBG pH Oxyhemoglobin Carboxyhemoglobin Sodium Potassium Chloride Carbon Dioxide BUN Creatinine 0.5 L Glucose POC Glucose 68 L 112 H Random Insulin C-Peptide Lactic Acid Calcium Ionized Calcium Phosphorus Magnesium AST ALT Alkaline Phosphatase Lactate Dehydrogenase NT-Pro-B Natriuret Pep Total Protein Albumin Arterial Blood Glucose Arterial Blood Ionized Calcium Urine pH Urine WBC (Auto) U Epithel Cells (Auto) Vancomycin Trough Phenytoin Crossmatch 02/06/21 02/07/21 02/07/21 23:32 11:49 16:47 WBC RBC Hgb Hct MCV MCH MCHC RDW Plt Count Lymph % (Auto) [place] % (Auto) Lymph # (Auto) [place] # (Auto) Baso # (Auto) Seg Neutrophils % Seg Neuts % (Manual) Lymphocytes % (Manual) Monocytes % (Manual) Nucleated RBC % Seg Neutrophils # Seg Neutrophils # Man Lymphocytes # (Manual) Monocytes # (Manual) PT INR APTT Fibrinogen D-Dimer ABG pH POC ABG pCO2 POC ABG pO2 ABG pO2 ABG HCO3 ABG Base Excess ABG Hemoglobin ABG Oxyhemoglobin ABG Sodium ABG Potassium ABG Chloride ABG Glucose VBG pH Oxyhemoglobin Carboxyhemoglobin Sodium Potassium Chloride Carbon Dioxide BUN Creatinine Glucose POC Glucose 113 H 109 H 106 H Random Insulin C-Peptide Lactic Acid Calcium Ionized Calcium Phosphorus Magnesium AST ALT Alkaline Phosphatase Lactate Dehydrogenase NT-Pro-B Natriuret Pep Total Protein Albumin Arterial Blood Glucose Arterial Blood Ionized Calcium Urine pH Urine WBC (Auto) U Epithel Cells (Auto) Vancomycin Trough Phenytoin Crossmatch 02/07/21 02/08/21 02/08/21 22:59 06:17 06:38 WBC RBC Hgb Hct MCV MCH MCHC RDW Plt Count Lymph % (Auto) [place] % (Auto) Lymph # (Auto) [place] # (Auto) Baso # (Auto) Seg Neutrophils % Seg Neuts % (Manual) Lymphocytes % (Manual) Monocytes % (Manual) Nucleated RBC % Seg Neutrophils # Seg Neutrophils # Man Lymphocytes # (Manual) Monocytes # (Manual) PT INR APTT Fibrinogen D-Dimer ABG pH POC ABG pCO2 POC ABG pO2 ABG pO2 ABG HCO3 ABG Base Excess ABG Hemoglobin ABG Oxyhemoglobin ABG Sodium ABG Potassium ABG Chloride ABG Glucose VBG pH Oxyhemoglobin Carboxyhemoglobin Sodium 132 L Potassium Chloride 94.2 L Carbon Dioxide BUN Creatinine 0.5 L Glucose 101 H POC Glucose 106 H 110 H Random Insulin C-Peptide Lactic Acid Calcium Ionized Calcium Phosphorus Magnesium AST ALT Alkaline Phosphatase Lactate Dehydrogenase NT-Pro-B Natriuret Pep Total Protein Albumin Arterial Blood Glucose Arterial Blood Ionized Calcium Urine pH Urine WBC (Auto) U Epithel Cells (Auto) Vancomycin Trough Phenytoin Crossmatch 02/08/21 02/09/21 02/09/21 12:51 00:03 06:27 WBC RBC Hgb Hct MCV MCH MCHC RDW Plt Count Lymph % (Auto) [place] % (Auto) Lymph # (Auto) [place] # (Auto) Baso # (Auto) Seg Neutrophils % Seg Neuts % (Manual) Lymphocytes % (Manual) Monocytes % (Manual) Nucleated RBC % Seg Neutrophils # Seg Neutrophils # Man Lymphocytes # (Manual) Monocytes # (Manual) PT INR APTT Fibrinogen D-Dimer ABG pH POC ABG pCO2 POC ABG pO2 ABG pO2 ABG HCO3 ABG Base Excess ABG Hemoglobin ABG Oxyhemoglobin ABG Sodium ABG Potassium ABG Chloride ABG Glucose VBG pH Oxyhemoglobin Carboxyhemoglobin Sodium Potassium Chloride Carbon Dioxide BUN Creatinine Glucose POC Glucose 109 H 139 H 106 H Random Insulin C-Peptide Lactic Acid Calcium Ionized Calcium Phosphorus Magnesium AST ALT Alkaline Phosphatase Lactate Dehydrogenase NT-Pro-B Natriuret Pep Total Protein Albumin Arterial Blood Glucose Arterial Blood Ionized Calcium Urine pH Urine WBC (Auto) U Epithel Cells (Auto) Vancomycin Trough Phenytoin Crossmatch 02/09/21 02/09/21 02/09/21 10:59 10:59 11:50 WBC RBC 5.37 H Hgb Hct MCV 73 L MCH 25 L MCHC RDW Plt Count Lymph % (Auto) [place] % (Auto) Lymph # (Auto) [place] # (Auto) Baso # (Auto) Seg Neutrophils % Seg Neuts % (Manual) Lymphocytes % (Manual) Monocytes % (Manual) 13.0 H Nucleated RBC % Seg Neutrophils # Seg Neutrophils # Man Lymphocytes # (Manual) Monocytes # (Manual) PT INR APTT Fibrinogen D-Dimer ABG pH POC ABG pCO2 POC ABG pO2 ABG pO2 ABG HCO3 ABG Base Excess ABG Hemoglobin ABG Oxyhemoglobin ABG Sodium ABG Potassium ABG Chloride ABG Glucose VBG pH Oxyhemoglobin Carboxyhemoglobin Sodium 133 L Potassium Chloride 96.9 L Carbon Dioxide 20 L BUN Creatinine 0.5 L Glucose 104 H POC Glucose 120 H Random Insulin C-Peptide Lactic Acid Calcium Ionized Calcium Phosphorus Magnesium AST ALT Alkaline Phosphatase Lactate Dehydrogenase NT-Pro-B Natriuret Pep Total Protein Albumin Arterial Blood Glucose Arterial Blood Ionized Calcium Urine pH Urine WBC (Auto) U Epithel Cells (Auto) Vancomycin Trough Phenytoin Crossmatch 02/09/21 02/09/21 02/11/21 17:35 23:25 06:26 WBC RBC Hgb Hct MCV MCH MCHC RDW Plt Count Lymph % (Auto) [place] % (Auto) Lymph # (Auto) [place] # (Auto) Baso # (Auto) Seg Neutrophils % Seg Neuts % (Manual) Lymphocytes % (Manual) Monocytes % (Manual) Nucleated RBC % Seg Neutrophils # Seg Neutrophils # Man Lymphocytes # (Manual) Monocytes # (Manual) PT INR APTT Fibrinogen D-Dimer ABG pH POC ABG pCO2 POC ABG pO2 ABG pO2 ABG HCO3 ABG Base Excess ABG Hemoglobin ABG Oxyhemoglobin ABG Sodium ABG Potassium ABG Chloride ABG Glucose VBG pH Oxyhemoglobin Carboxyhemoglobin Sodium Potassium Chloride Carbon Dioxide BUN Creatinine Glucose POC Glucose 115 H 145 H 113 H Random Insulin C-Peptide Lactic Acid Calcium Ionized Calcium Phosphorus Magnesium AST ALT Alkaline Phosphatase Lactate Dehydrogenase NT-Pro-B Natriuret Pep Total Protein Albumin Arterial Blood Glucose Arterial Blood Ionized Calcium Urine pH Urine WBC (Auto) U Epithel Cells (Auto) Vancomycin Trough Phenytoin Crossmatch 02/11/21 02/11/21 02/11/21 11:35 16:15 17:04 WBC RBC 5.10 H Hgb Hct MCV 74 L MCH 24 L MCHC RDW Plt Count Lymph % (Auto) [place] % (Auto) 13.2 H Lymph # (Auto) [place] # (Auto) 1.1 H Baso # (Auto) Seg Neutrophils % Seg Neuts % (Manual) Lymphocytes % (Manual) Monocytes % (Manual) Nucleated RBC % Seg Neutrophils # Seg Neutrophils # Man Lymphocytes # (Manual) Monocytes # (Manual) PT INR APTT Fibrinogen D-Dimer ABG pH POC ABG pCO2 POC ABG pO2 ABG pO2 ABG HCO3 ABG Base Excess ABG Hemoglobin ABG Oxyhemoglobin ABG Sodium ABG Potassium ABG Chloride ABG Glucose VBG pH Oxyhemoglobin Carboxyhemoglobin Sodium Potassium Chloride Carbon Dioxide BUN Creatinine Glucose POC Glucose 117 H 117 H Random Insulin C-Peptide Lactic Acid Calcium Ionized Calcium Phosphorus Magnesium AST ALT Alkaline Phosphatase Lactate Dehydrogenase NT-Pro-B Natriuret Pep Total Protein Albumin Arterial Blood Glucose Arterial Blood Ionized Calcium Urine pH Urine WBC (Auto) U Epithel Cells (Auto) Vancomycin Trough Phenytoin Crossmatch 02/11/21 02/12/21 02/12/21 22:10 04:09 04:09 WBC RBC Hgb Hct MCV 74 L MCH 23 L MCHC RDW Plt Count Lymph % (Auto) [place] % (Auto) Lymph # (Auto) [place] # (Auto) Baso # (Auto) Seg Neutrophils % Seg Neuts % (Manual) Lymphocytes % (Manual) Monocytes % (Manual) Nucleated RBC % Seg Neutrophils # Seg Neutrophils # Man Lymphocytes # (Manual) Monocytes # (Manual) PT INR APTT Fibrinogen D-Dimer ABG pH POC ABG pCO2 POC ABG pO2 ABG pO2 ABG HCO3 ABG Base Excess ABG Hemoglobin ABG Oxyhemoglobin ABG Sodium ABG Potassium ABG Chloride ABG Glucose VBG pH Oxyhemoglobin Carboxyhemoglobin Sodium Potassium Chloride Carbon Dioxide BUN Creatinine 0.5 L Glucose 107 H POC Glucose 132 H Random Insulin C-Peptide Lactic Acid Calcium Ionized Calcium Phosphorus Magnesium AST ALT Alkaline Phosphatase Lactate Dehydrogenase NT-Pro-B Natriuret Pep Total Protein Albumin Arterial Blood Glucose Arterial Blood Ionized Calcium Urine pH Urine WBC (Auto) U Epithel Cells (Auto) Vancomycin Trough Phenytoin Crossmatch 02/13/21 02/14/21 02/14/21 05:16 00:52 13:16 WBC RBC Hgb Hct MCV MCH MCHC RDW Plt Count Lymph % (Auto) [place] % (Auto) Lymph # (Auto) [place] # (Auto) Baso # (Auto) Seg Neutrophils % Seg Neuts % (Manual) Lymphocytes % (Manual) Monocytes % (Manual) Nucleated RBC % Seg Neutrophils # Seg Neutrophils # Man Lymphocytes # (Manual) Monocytes # (Manual) PT INR APTT Fibrinogen D-Dimer ABG pH POC ABG pCO2 POC ABG pO2 ABG pO2 ABG HCO3 ABG Base Excess ABG Hemoglobin ABG Oxyhemoglobin ABG Sodium ABG Potassium ABG Chloride ABG Glucose VBG pH Oxyhemoglobin Carboxyhemoglobin Sodium Potassium Chloride Carbon Dioxide BUN Creatinine Glucose POC Glucose 106 H 115 H 107 H Random Insulin C-Peptide Lactic Acid Calcium Ionized Calcium Phosphorus Magnesium AST ALT Alkaline Phosphatase Lactate Dehydrogenase NT-Pro-B Natriuret Pep Total Protein Albumin Arterial Blood Glucose Arterial Blood Ionized Calcium Urine pH Urine WBC (Auto) U Epithel Cells (Auto) Vancomycin Trough Phenytoin Crossmatch 02/15/21 02/15/21 02/16/21 12:01 16:32 05:54 WBC RBC Hgb Hct MCV MCH MCHC RDW Plt Count Lymph % (Auto) [place] % (Auto) Lymph # (Auto) [place] # (Auto) Baso # (Auto) Seg Neutrophils % Seg Neuts % (Manual) Lymphocytes % (Manual) Monocytes % (Manual) Nucleated RBC % Seg Neutrophils # Seg Neutrophils # Man Lymphocytes # (Manual) Monocytes # (Manual) PT INR APTT Fibrinogen D-Dimer ABG pH POC ABG pCO2 POC ABG pO2 ABG pO2 ABG HCO3 ABG Base Excess ABG Hemoglobin ABG Oxyhemoglobin ABG Sodium ABG Potassium ABG Chloride ABG Glucose VBG pH Oxyhemoglobin Carboxyhemoglobin Sodium Potassium Chloride Carbon Dioxide BUN Creatinine Glucose POC Glucose 113 H 110 H 107 H Random Insulin C-Peptide Lactic Acid Calcium Ionized Calcium Phosphorus Magnesium AST ALT Alkaline Phosphatase Lactate Dehydrogenase NT-Pro-B Natriuret Pep Total Protein Albumin Arterial Blood Glucose Arterial Blood Ionized Calcium Urine pH Urine WBC (Auto) U Epithel Cells (Auto) Vancomycin Trough Phenytoin Crossmatch 02/16/21 02/17/21 11:31 23:36 WBC RBC Hgb Hct MCV MCH MCHC RDW Plt Count Lymph % (Auto) [place] % (Auto) Lymph # (Auto) [place] # (Auto) Baso # (Auto) Seg Neutrophils % Seg Neuts % (Manual) Lymphocytes % (Manual) Monocytes % (Manual) Nucleated RBC % Seg Neutrophils # Seg Neutrophils # Man Lymphocytes # (Manual) Monocytes # (Manual) PT INR APTT Fibrinogen D-Dimer ABG pH POC ABG pCO2 POC ABG pO2 ABG pO2 ABG HCO3 ABG Base Excess ABG Hemoglobin ABG Oxyhemoglobin ABG Sodium ABG Potassium ABG Chloride ABG Glucose VBG pH Oxyhemoglobin Carboxyhemoglobin Sodium Potassium Chloride Carbon Dioxide BUN Creatinine Glucose POC Glucose 107 H 108 H Random Insulin C-Peptide Lactic Acid Calcium Ionized Calcium Phosphorus Magnesium AST ALT Alkaline Phosphatase Lactate Dehydrogenase NT-Pro-B Natriuret Pep Total Protein Albumin Arterial Blood Glucose Arterial Blood Ionized Calcium Urine pH Urine WBC (Auto) U Epithel Cells (Auto) Vancomycin Trough Phenytoin Crossmatch Chest x-ray: report reviewed, image reviewed
[2021-02-23] MEDS: FAMOTIDINE 20 MG TAB PO SCH ×2 (11:05→22:03)
[2021-02-23] MEDS: ENOXAPARIN 40 MG/0.4 ML INJ SUB-Q SCH (11:05)
[2021-02-23] MEDS: METOPROLOL TARTRATE 25 MG TAB PO SCH ×2 (11:22→22:06)
--- NOTE | 2021-02-23 11:43 | Progress Note ---
Assessment and Plan Assessment and Plan 30 y/o female patient with Eclampsia/help syndrome, s/p emergent section with DIC, hemorrhage, supracervical abdominal hysterectomy, acute respiratory failure , tracheostomy on T-piece with morbid obesity, s/p cardiac arrest 12/08/2019 status post CPR per ACLS, acute hypoxic brain injury Acute kidney injury improved, severe shock requiring pressors, DIC septic shock improved, history of C. difficile colitis completed treatment with vancomycin. Tracheostomy on T-piece, continues to require 5 L of oxygen. Herpetic flareup, ID started treatment with antibiotics, patient is waiting for SNF placement DC planning per case management Assessment and plan: --Persistent hypoglycemia; patient is requiring continuous D10 W infusion CT abdomen done to rule out insulinoma, CT abdomen report negative for pancreatic tumor We will closely monitor --Cardiac arrest; 10/07/2020 ,status post CPR --Acute hypoxic brain injury; Supportive care, closely monitor --Acute hypoxic respiratory failure: Tracheostomy on T-piece , today on 4.5 L oxygen, saturating 100% Supportive care, Pulmonary critical following COVID-19 negative C. difficile positive; Patient on contact isolation Completed treatment --Afebrile: Blood, urine, tracheal aspirate cultures New cultures negative to date Monitor off antibiotics Closely monitor --Sepsis; received antibiotics Continue to monitor off antibiotics ID following --COVID-19 test negative; 10/08/2020 --C. difficile colitis test; positive; 10/16/2020 --Acute metabolic encephalopathy --Acute kidney injury; vasomotor nephropathy Resolved, renal function within normal limits, closely monitor --Shock; monitor of pressors Blood pressures reasonable level --DIC; sepsis, septic shock, resolved --History of preeclampsia; / hemorrhage Status post hysterectomy --History of C. difficile colitis; completed oral vancomycin --DVT/SVT and right upper extremity Very poor prognosis, Consults recommendations noted and appreciated We will closely monitor the patient and adjust management as needed Plan of care reviewed with the patient's nurse. Waiting for [facility] facility placement Subjective Date of service: 02/22/21 Principal diagnosis: Eclampsia/HELLP Syndrome, ADOLPH, DIC; s/p , s/p supracervical hyst Interval history: 30 y/o female patient with Eclampsia/help syndrome, s/p emergent section with DIC, hemorrhage, supracervical abdominal hysterectomy, acute respiratory failure , tracheostomy on T-piece with morbid obesity, s/p cardiac arrest 12/08/2019 status post CPR per ACLS, acute hypoxic brain injury Acute kidney injury improved, severe shock requiring pressors, DIC septic shock improved, history of C. difficile colitis on vancomycin. Tracheostomy on T-piece, continues to require 5 L of oxygen. Brief history; 30 year old -[place] female CHE 10/25/20 at 36w5d who presents with seizures in triage on 10/02/20. Pt was not able to provide history but per pt's , she presented to the hospital to return a 24 hour urine specimen for analysis. She then suddenly reported that she did not feel good. She was taken to labor and delivery and shortly after arrival, she began seizing. During this time, a code met was called because the patient became hypoxic. She was then noted to be without a pulse. Chest compressions were started immediately, and the patient was emergently taken to the operating room for delivery of the fetus. Off note, This patient has had care at [facility] with coma nagement by [facility] since 11 wks complicated by ADHD, morbid obesity, generalized anxiety disorder, panic attacks, chronic narcotic use, fibromyalgia, GERD, Irritable Bowel Syndrome, Migraines, h/o endometrial ablation and ovarian vein embolization, genital herpes, insomnia, LGA fetus, nausea and vomiting, polyhydramnios, quad screen positive for Down's Syndrome, and previous x 3. She is GBS negative. , Patient tracheostomy on ventilatory support, unable to wean, continue supportive care poor prognosis 11:30: Pt brought to L&D triage for evaluation of possible labor. Pt accompanied by her spouse. Pt spouse poor historian; unable to obtain history- allergies at this time. Pt taken from registration to triage area via WC. Pt unresponsive, actively seizing with snorous respirations. portrait painter, Kassy, called and requesting assistance. 11:35: Multiple staff at bedside. Pt 02 sat 67% on nonrebreather, unable to read BP . Yifan Theodore CRNA, at bedside for intubation and assistance with IV insertion. INT attempt by multiple RNs unsuccessful at this time. 11:42: Pt being bagged by KORIN, 02% 79%. No pulse palpated, compressions on at this time; bharati young called and Dr. Nweberry preparing OR for emergent c/s. 11:44: Continued compressions on stretcher while transporting pt to OR 1. Pt being bagged with jaw thrust manuever in place by KORIN Stringer student. 11:45: Arrival to OR 1. Dr. Newberry and Dr. Portillo present for emergent c/s. Code team arrived for continued care. patient revived and c/s done Patient has been bleeding from C/s site followed by supracervical hysterectomy for severe bleeding, Patient transfused multiple units of PRBC, Patient in DIC. Patient transferred to the ICU Hospital course; 10/03. Patient seen and examined at bedside this morning. Patient is no nresponsive and mechanically ventilated. On pressors. Labs reviewed-has leukocytosis, anemia, thrombocytopenia, ADOLPH and lactic acidosis. Started on IV antibiotics to cover possible sepsis secondary to DIC. Hematology oncology recommendations appreciated-needs additional cryoprecipitate and FFP. Monitor D-dimer, fibrinogen and frequent labs. Nephrology consulted for lactic acidosis and ADOLPH. 10/04. Remains mechanically ventilated. Kevin antibiotics. Labs shows improved acidosis - lactic acid 3.5. Hb drop noted. Getting transfused 2 units PRBCs. Platelet count is ~40k. Continue to monitor labs closely. Critical care team on board. 10/05; xray reviewed, concerning for multifocal infilrate, likely underlying Pneumonia, will add ID consult to assist with management of this critically ill patient, start tube feed, closely monitor renal system 10/06: Resumed care, remains on mechanical ventilation. No active bleeding, H&H stable. Continue to monitor CBC and BMP. Continue IV antibiotic for underlying pneumonia. Follow critical care and ID recommendation. 10/07: Remains on mechanical ventilation. No active bleeding, H&H stable. Critical care following, wean off ventilation as tolerated. 10/08: Patient had another cardiac arrest last night. Remains on mechanical ventilation, update family. Continue supportive care -poor prognosis 10/09: Called patient mother and discussed about patient care and management. Answered all question to best of my knowledge and family satisfaction. Patient remains on mechanical ventilation, cardiac arrest x2 so far. Critically sick, poor prognosis 10/10: remains on mechanical ventilation. h/h stable, no active bleeding. monitor CBC/BMP 10/11: WBC trended up with diarrhea, started on vancomycin po. remains on MV, off pressor, tolerating TF 10/12: remains on MV, off pressor, tolerating TF. called family for update but unable to reach, could not leave message as it was full. cont supportive care, wean off vent as tolerated. 10/13/2020; patient is on mechanical ventilation, tolerating tube feeding. Patient has labored breathing. Neuro was consulted and recommend MRI. Patient is on Precedex. Rectal tube in place. 10/14/2020; patient is on mechanical ventilation, Precedex. Patient had fever and blood culture ordered. Patient is on IV vancomycin per ID recommendation. Neuro consulted and recommend MRI. Continue to monitor. Prognosis is guarded. 10/15/2020; patient is on mechanical ventilation, Precedex. Patient had fever and blood culture ordered. Patient is on IV vancomycin per ID recommendation. Neuro consulted and recommend MRI. Continue to monitor. Prognosis is guarded. 10/17: Remains with C.DIFF and Bactermia, Poor prognosis. No purposeful movement. MRI and EEG discussed with Intensvisit, Continue aggressive BP control. 10/18: Blood pressure better controlled MRI done 10/15 shows mild improvement in edema. We will continue to monitor mother was at bedside yesterday. Nursing documentation trach and PEG discussed with the mother including goals of care. She is still in denial about the gravity of her daughters her condition which is understandable considering her age. Continue aggressive management at this time. Await for bacteremia to clear by ID before placing PICC line. 10/19: Patient for possible PEG and Trach, ID following, repeat cultures remain negative. Poor prognosis 10/20: Pt noted to DVT and SVT in the RUE, Vascular consult and will also obtain Hematology for possible considering changing in Anticoagulation. CONTINUE TO MONITOR H/H and PLT. Family updated by Intens[employer]it. Heparin gtt started. Will check CBC and BMP 10/21: Continue supporive care, Diarrhea now resolving, But still with persistent Fever, May need repeat CT/AP per ID, still with profused Encephalopathy 10/22: Continue supportive care, weaning, awaiting repeat Imaging. FOLLOW Fever curve. Enoxparin restarted 10/23: Continue supportive care, wean as tolerated. 10/24; Started on CPAP trial, discussed with pulmonary, still with diarrhea. 10/25: Patients seen and examined, no clinical changes, still with diarrhea. ?meaningful recovery. 10/26: Clinically unchanged, continue CPAP trial, Will discuss with Neurology about re-evaluation, ?Need for repeat CT head. ?PRESS considering initial elevated BP, now stable. 10/27; tracheostomy on vent, weaning trials, vital signs noted, poor prognosis 10/28; unable to wean, tracheostomy on vent. Sepsis. Continue current management. Consults and recommendations noted and appreciated 10/30/2020;Patient on T-piece 5 L of oxygen not in acute distress, noncommunicative 11/02/2020; patient on T-piece 5 L of oxygen 11/03/2020; patient's fever slightly improved low-grade, continue current management, remains on T-piece with 5 L of oxygen 11/04/2020; T-max last 24 hours 100.3 F, new cultures negative to date, monitor off antibiotics Patient is off Levophed, blood pressures reasonable level, tracheostomy on T- piece 3 to 5 L nasal cannula oxygen 11/05/2020; tracheostomy on T-piece patient remains on 5 L of nasal cannula oxygen, unresponsive severe hypoxic brain injury I called patient's mother Ms. Pamela Bassett as well as patient's spouse Mr. Danilo Dimas at [phone] unable to reach them Left voicemail on Ms. Pamela Bassettz phone and encouraged him to call back 11/06/2020; I tried to call again today Ms. Pamela Bassett to discuss patient's condition and treatment plan and update consultants recommendations and patient's prognosis., unable to reach her 11/07/20 Will try LTAC/Hospice 11/08/20 Same condition 11/09/2020 Same condition 11/10/2020; family conference was held by case management yesterday 11/09/2020, family decided and agreed for SNF placement 11/11/2020; patient seen and examined, clinically no change tracheostomy on 5 L of nasal cannula oxygen, hemodynamically and clinically stable for discharge To LTAC versus SNF, DC planning per case management 11/12/2020; clinically no change, continue current management, DC planning per case management possible SNF placement 11/13/2020; patient is receiving herpes flareup treatment per ID 11/14/2020; clinically no change, awaiting SNF placement 11/15/2020; clinically no change, tracheostomy on T-piece on 5 L oxygen, awaiting placement 11/16/2020; patient awaiting placement 11/18/2020; abdominal CT scan negative for insulinoma or pancreatic tumor ,clinically no change Awaiting SNF placement 11/19/2020; remains on 4 L of oxygen tracheostomy via T-piece, awaiting SNF placement 11/20/2020 Awaiting SNF placement 11/21/2020 Waiting for SNF placement 11/22/2020 Waiting for placement 11/23/2020 Waiting for placement 11/24/2020 through 12/24/2020 Patient waiting for placement 11/27/2020; patient remains hypoglycemic on D10 W IV fluids, CT abdomen negative for insulinoma Remains stable awaiting SNF placement, tracheostomy on 5 L oxygen via T-piece 11/28/2020; awaiting SNF placement 11/29/2020; patient remains unresponsive, tracheostomy on T-piece, on 4 to 5 L of oxygen Wean as tolerated, DC planning per case management possible SNF placement 11/30/2020; awaiting SNF placement 12/02/2020; awaiting placement, stable for discharge 12/03/2020; clinically no change, awaiting placement, tracheostomy on T-piece, anoxic brain injury 12/04/2020 Patient has anoxic encephalopathy with anoxic brain brain injury Awaiting placement 12/05/2020; anoxic brain injury, awaiting placement. 12/06/20; anoxic brain injury. Awaiting placement. 12/07/2020; anoxic brain injury, awaiting placement. 12/09/2020; anoxic brain injury, awaiting placement. 12/10/2020; patient had episodes of fever overnight. CBC, BMP, blood culture, UA and chest x-ray ordered, will follow and manage accordingly. Urinalysis is suggestive of UTI and I put the patient on ceftriaxone, order urine culture. Chest x-ray is normal. 12/11/2020; patient is on ceftriaxone day 2 for UTI. We will continue to follow urine culture. 12/12/2020. Day #3 of Rocephin for UTI. We will continue for 2 more days while she is here. Present UTI. 12/13/2020. Day #4 of Rocephin for UTI. Patient remains on 50% with tracheostomy. Remains unresponsive with evidence of anoxic encephalopathy unable to make needs known. 12/14/2020. Day #5 of Rocephin for UTI completed today. Remains encephalopathic unable to make needs known. Remains on 50% unable to decrease oxygen via trac heostomy. Overall prognosis remains extremely poor. 12/15: Continue to monitor. Stop and monitor antibiotics at this time. Continue to wean oxygen as tolerated. Wean oxygen as tolerated. Case management working on placement. 12/16: Continue supportive care aspiration precautions. Awaiting placement discussion. Monitor fever curve. Prognosis remains poor no evidence of neurological recovery as of today 12/17: Continue supportive care, check labs and chest xray. Still monitor off antibiotics. Monitor Sodium level 12/18: Patient remains with intermittent low grade fever, reviewed EEG from September again, consistent for Ischemic Hypoxic Encephalopathy, patient with decorticating posturing type presentation. Will discuss with senior internet sales consultant to optimize diet so we can discontinue D5. CXR with no abnormality. Discussed extensively with the nursing staff at bedside CXR IMPRESSION: 1. No acute findings. 12/19: No clinical change 12/20: No clinical change, now off abx, monitor, discussed her medications with our pharmacist I believe that her posture and rigidity is likely from underlying anoxic encephalopathy. Continue to monitor and await placement decision. Continue aggressive suctioning. Plan discussed in detail with the nursing staff 12/21: Continue supportive care. Will give 500 cc bolus of fluid today to replace insensible losses. Tachycardia appears to be improving. Blood pressure precludes adjusting cardiac meds. Still awaiting placement from case management. Plan discussed in detail with the nursing staff 12/22. Continue support supportive care. Tracheostomy and PEG in place. Remains nonresponsive. Awaiting placement. 12/23. Continue support supportive care. Tracheostomy and PEG in place. Remains nonresponsive. Awaiting placement. Remains tachycardic. Decrease dose of lasix. Will try low dose metoprolol. Monitor BP closely 12/24. Continue support supportive care. Tracheostomy and PEG in place. Remains nonresponsive. Awaiting placement. Heart rate slightly better. Continue to monitor BP closely 12/25. Continue support supportive care. Tracheostomy and PEG in place. Remains nonresponsive. Awaiting placement. 12/26. Continue support supportive care. Tracheostomy and PEG in place. Remains nonresponsive. Awaiting placement 12/27. Continue support supportive care. Tracheostomy and PEG in place. Remains nonresponsive. Awaiting placement 12/28. Had fever yesterday. Blood culture drawn. UA - UTI - started on antibiotics. Now tracheal aspirate is growing GN rods. 12/29: Continue IV antibiotics, continue supportive care. Since admission p sonient has shown minimal or no chance of neurological recovery. Need 24/7 assistance. Currently on trach and PEG, nonverbal. Waiting on SNF placement. Discussed with case monitor today. 12/30: Continue IV antibiotics for UTI, continue supportive care. Pending placement 12/31: continue supportive care. continue supportive care. Pending placement 01/01: continue supportive care. Pending placement. cont Iv abx for UTI till 01/04 01/02: Continue supportive care, pending placement. Sodium level slightly elevated, will start hypotonic fluid. Continue antibiotics till 01/04 01/03; cont hypotonic fluid, increase free water with TF for hypernatremia, follow BMP. cont supportive care. pending placement. cont cefepime. recx blood 01/04: resolved hyponatremia, cont supportive care, pending placement. Last day of supplement today. 01/05: Continue supportive care, pending placement. Monitor H&H and fever curve off antibiotic. 01/06; monitor off abx, suction as needed, Continue supportive care, pending placement. 01/07: Discharge pending on placement, vitals stable. Continue supportive care 01/08: Discharge pending on placement, vitals stable. Continue supportive care. stop lasix, increase metoprolol to 25mg BID for ST. 01/09 patient resting with eyes closed. Opens eyes to tactile stimulus, has a blink reflex, does not follow simple commands, has a T-collar / G-tube Lab results reviewed, low-grade fever, 01/10 Eyes open, does not follow simple commands, no acute events overnight 01/11 no acute events overnight, Waiting for placement 01/12 No acute events overnight. Patient awaiting for placement 01/13. No new issues. Awaiting placement 01/14. No new issues. Awaiting placement. 01/15. No new issues. Awaiting placement. 01/16. No new issues. Patient remain stable. Awaiting placement. Check maintenance labs. 01/17. Routine maintenance labs were ordered and are still pending. Await placement. 01/18. Patient with low-grade fever past 24-48 hrs. WBC within normal limits. Check chest x-ray, urinalysis and consider blood cultures. Continue tracheostomy care, secretion control and airway management. Patient currently with PEG and tube feedings at 60 cc an hour. Nutritional support and aspiration precautions. 01/19. Temperature 100.7 overnight. Continue to monitor closely. Continue tracheostomy care, secretion control and airway management. Patient currently with PEG and tube feedings at 60 cc an hour. Nutritional support and aspiration precautions. 01/20. Continue to monitor closely. Continue tracheostomy care, secretion control and airway management. Patient currently with PEG and tube feedings at 60 cc an hour. Nutritional support and aspiration precautions. 01/21. Afebrile overnight. Continue to monitor closely. Continue tracheostomy care, secretion control and airway management. Patient currently with PEG and tube feedings at 60 cc an hour. Nutritional support and aspiration precautions. 01/22. Continue to monitor closely. Continue tracheostomy care, secretion control and airway management. Patient currently with PEG and tube feedings at 60 cc an hour. Nutritional support and aspiration precautions. 01/23. Continue tracheostomy care, secretion control and airway management. Patient currently with PEG and tube feedings at 60 cc an hour. Nutritional support and aspiration precautions. Will get routine labs tomorrow. 01/24. Labs reviewed. No abnormalities. Continue tracheostomy care, secretion control and airway management. Patient currently with PEG and tube feedings at 60 cc an hour. Nutritional support and aspiration precautions. 01/25. Temp 100.6. More sleepy today. Will get chest xray, blood culture, urinalysis, sputum cultures. Will start on empirical abx. 01/26: Vitals noted, slightly tachycardic. Follow culture work-up, continue supportive care. 01/27: Spiking low-grade temp, negative UA, sputum culture and recent blood cultures also negative. Continue to monitor off antibiotics. Continue supportive care. Pending placement. 01/28: cont to spike low grade temp, negative UA, sputum culture and recent blood cultures also negative. Continue to monitor off antibiotics. will order fpr sinus xry. Continue supportive care. Pending placement. 01/29: Continue to follow clinically, intermittently spiking low-grade temp, all recent culture work is negative, negative UA, normal respiratory jaylan 1 tracheal aspirate. Vitals noted and currently stable. Pending placement 01/30: Clinically unchanged, continue to monitor vitals, continue supportive cares. Pending placement. Discussed plan of care with RN at the bedside. 01/31 - TODATE: cont supportive care, pending placement. monitor vitals carefully. Discussed with family at the bedside. 02/06. Patient afebrile today. Continue trach care. Secretions stable today. Culture data negative so far. Awaiting placement. 02/07. Awaiting placement awaiting family member to evaluate papers. Continue trach care secretions stable. Pending placement 02/09: Intermittent fever, ?drug related, will check cxr and also labs. No new complaints. 02/10: Patient's trach dislodged today. Nevertheless respiratory status is intact attempt to reinsert was unsuccessful will monitor discussed with nursing staff to pay close attention to the patient. Considering that this was not a planned decannulation I will start the patient on continuous pulse ox until full evaluation was done by pulmonary. 02/13/2021 Vital signs stable Unresponsive secondary to anoxic encephalopathy Awaiting placement 02/14/2021 Awaiting placement 02/15/2021 Anoxic encephalopathy Awaiting placement 02/16/2021 Anoxic encephalopathy Awaiting placement 02/17/2021 Anoxic encephalopathy awaiting placement 02/18/2021 Anoxic encephalopathy awaiting placement 02/19/2021 Anoxic encephalopathy awaiting placement 02/20/2021 Anoxic encephalopathy awaiting placement 02/21/2021 Anoxic encephalopathy awaiting placement 02/22/2021 Anoxic encephalopathy awaiting placement Objective - Exam Narrative Exam: Patient with tracheostomy - Constitutional Vitals: Vital Signs - 12hr 02/23/21 02/23/21 02/23/21 05:13 11:11 11:22 Temperature 98.8 F 99.0 F Pulse Rate 99 H 110 H 110 H Respiratory 18 24 Rate Blood Pressure 115/71 116/72 116/72 O2 Sat by Pulse 97 99 Oximetry General appearance: Present: no acute distress, well-nourished - EENT Eyes: PERRL, EOM intact ENT: hearing intact, clear oral mucosa Ears: bilateral: normal - Neck Neck: supple, normal ROM, other (Team please) - Respiratory Respiratory effort: normal Respiratory: bilateral: CTA - Breasts Breasts: normal - Cardiovascular Heart rate: 98 Rhythm: regular Heart Sounds: Present: S1 & S2. Absent: gallop, rub Extremities: pulses intact, No edema, normal color, Full ROM - Gastrointestinal General gastrointestinal: Present: soft, non-tender, non-distended, normal bowel sounds - Genitourinary Female genitourinary: normal - Integumentary Integumentary: clear, warm, dry - Musculoskeletal Musculoskeletal: generalized weakness - Neurologic Neurologic: moves all extremities, other (Unresponsive) - Psychiatric Psychiatric: other (Unresponsive) - Labs CBC & Chem 7: 02/12/21 04:09 02/12/21 04:09 Labs: Abnormal lab results 02/22/21 Range/Units 23:11 POC Glucose 107 H (70-105) mg/dL HEART Score - HEART Score Age: < 45 Risk factors: 1-2 risk factors - Critical Actions Critical Actions: >7 pts:50-65% risk of adverse cardiac event. Early invasive measures
--- NOTE | 2021-02-23 11:45 | Progress Note ---
Assessment and Plan Assessment and Plan 30 y/o female patient with Eclampsia/help syndrome, s/p emergent section with DIC, hemorrhage, supracervical abdominal hysterectomy, acute respiratory failure , tracheostomy on T-piece with morbid obesity, s/p cardiac arrest 12/08/2019 status post CPR per ACLS, acute hypoxic brain injury Acute kidney injury improved, severe shock requiring pressors, DIC septic shock improved, history of C. difficile colitis completed treatment with vancomycin. Tracheostomy on T-piece, continues to require 5 L of oxygen. Herpetic flareup, ID started treatment with antibiotics, patient is waiting for SNF placement DC planning per case management Assessment and plan: --Persistent hypoglycemia; patient is requiring continuous D10 W infusion CT abdomen done to rule out insulinoma, CT abdomen report negative for pancreatic tumor We will closely monitor --Cardiac arrest; 10/07/2020 ,status post CPR --Acute hypoxic brain injury; Supportive care, closely monitor --Acute hypoxic respiratory failure: Tracheostomy on T-piece , today on 4.5 L oxygen, saturating 100% Supportive care, Pulmonary critical following COVID-19 negative C. difficile positive; Patient on contact isolation Completed treatment --Afebrile: Blood, urine, tracheal aspirate cultures New cultures negative to date Monitor off antibiotics Closely monitor --Sepsis; received antibiotics Continue to monitor off antibiotics ID following --COVID-19 test negative; 10/08/2020 --C. difficile colitis test; positive; 10/16/2020 --Acute metabolic encephalopathy --Acute kidney injury; vasomotor nephropathy Resolved, renal function within normal limits, closely monitor --Shock; monitor of pressors Blood pressures reasonable level --DIC; sepsis, septic shock, resolved --History of preeclampsia; / hemorrhage Status post hysterectomy --History of C. difficile colitis; completed oral vancomycin --DVT/SVT and right upper extremity Very poor prognosis, Consults recommendations noted and appreciated We will closely monitor the patient and adjust management as needed Plan of care reviewed with the patient's nurse. Waiting for senior care facility placement Subjective Date of service: 02/23/21 Principal diagnosis: Eclampsia/HELLP Syndrome, ADOLPH, DIC; s/p , s/p supracervical hyst Interval history: 30 y/o female patient with Eclampsia/help syndrome, s/p emergent section with DIC, hemorrhage, supracervical abdominal hysterectomy, acute respiratory failure , tracheostomy on T-piece with morbid obesity, s/p cardiac arrest 12/08/2019 status post CPR per ACLS, acute hypoxic brain injury Acute kidney injury improved, severe shock requiring pressors, DIC septic shock improved, history of C. difficile colitis on vancomycin. Tracheostomy on T-piece, continues to require 5 L of oxygen. Brief history; 30 year old -[place] female CHE 10/25/20 at 36w5d who presents with seizures in triage on 10/02/20. Pt was not able to provide history but per pt's , she presented to the hospital to return a 24 hour urine specimen for analysis. She then suddenly reported that she did not feel good. She was taken to labor and delivery and shortly after arrival, she began seizing. During this time, a code met was called because the patient became hypoxic. She was then noted to be without a pulse. Chest compressions were started immediately, and the patient was emergently taken to the operating room for delivery of the fetus. Off note, This patient has had care at [facility] with coma nagement by [facility] since 11 wks complicated by ADHD, morbid obesity, generalized anxiety disorder, panic attacks, chronic narcotic use, fibromyalgia, GERD, Irritable Bowel Syndrome, Migraines, h/o endometrial ablation and ovarian vein embolization, genital herpes, insomnia, LGA fetus, nausea and vomiting, polyhydramnios, quad screen positive for Down's Syndrome, and previous x 3. She is GBS negative. , Patient tracheostomy on ventilatory support, unable to wean, continue supportive care poor prognosis 11:30: Pt brought to L&D triage for evaluation of possible labor. Pt accompanied by her spouse. Pt spouse poor historian; unable to obtain history- allergies at this time. Pt taken from registration to triage area via WC. Pt unresponsive, actively seizing with snorous respirations. gluing machine adjuster, Kassy, called and requesting assistance. 11:35: Multiple staff at bedside. Pt 02 sat 67% on nonrebreather, unable to read BP . Yifan Theodore CRNA, at bedside for intubation and assistance with IV insertion. INT attempt by multiple RNs unsuccessful at this time. 11:42: Pt being bagged by KORIN, 02% 79%. No pulse palpated, compressions on at this time; bharati young called and Dr. Newberry preparing OR for emergent c/s. 11:44: Continued compressions on stretcher while transporting pt to OR 1. Pt being bagged with jaw thrust manuever in place by KORIN Stringer student. 11:45: Arrival to OR 1. Dr. Newberry and Dr. Portillo present for emergent c/s. Code team arrived for continued care. patient revived and c/s done Patient has been bleeding from C/s site followed by supracervical hysterectomy for severe bleeding, Patient transfused multiple units of PRBC, Patient in DIC. Patient transferred to the ICU Hospital course; 10/03. Patient seen and examined at bedside this morning. Patient is no nresponsive and mechanically ventilated. On pressors. Labs reviewed-has leukocytosis, anemia, thrombocytopenia, ADOLPH and lactic acidosis. Started on IV antibiotics to cover possible sepsis secondary to DIC. Hematology oncology recommendations appreciated-needs additional cryoprecipitate and FFP. Monitor D-dimer, fibrinogen and frequent labs. Nephrology consulted for lactic acidosis and ADOLPH. 10/04. Remains mechanically ventilated. Kevin antibiotics. Labs shows improved acidosis - lactic acid 3.5. Hb drop noted. Getting transfused 2 units PRBCs. Platelet count is ~40k. Continue to monitor labs closely. Critical care team on board. 10/05; xray reviewed, concerning for multifocal infilrate, likely underlying Pneumonia, will add ID consult to assist with management of this critically ill patient, start tube feed, closely monitor renal system 10/06: Resumed care, remains on mechanical ventilation. No active bleeding, H&H stable. Continue to monitor CBC and BMP. Continue IV antibiotic for underlying pneumonia. Follow critical care and ID recommendation. 10/07: Remains on mechanical ventilation. No active bleeding, H&H stable. Critical care following, wean off ventilation as tolerated. 10/08: Patient had another cardiac arrest last night. Remains on mechanical ventilation, update family. Continue supportive care -poor prognosis 10/09: Called patient mother and discussed about patient care and management. Answered all question to best of my knowledge and family satisfaction. Patient remains on mechanical ventilation, cardiac arrest x2 so far. Critically sick, poor prognosis 10/10: remains on mechanical ventilation. h/h stable, no active bleeding. monitor CBC/BMP 10/11: WBC trended up with diarrhea, started on vancomycin po. remains on MV, off pressor, tolerating TF 10/12: remains on MV, off pressor, tolerating TF. called family for update but unable to reach, could not leave message as it was full. cont supportive care, wean off vent as tolerated. 10/13/2020; patient is on mechanical ventilation, tolerating tube feeding. Patient has labored breathing. Neuro was consulted and recommend MRI. Patient is on Precedex. Rectal tube in place. 10/14/2020; patient is on mechanical ventilation, Precedex. Patient had fever and blood culture ordered. Patient is on IV vancomycin per ID recommendation. Neuro consulted and recommend MRI. Continue to monitor. Prognosis is guarded. 10/15/2020; patient is on mechanical ventilation, Precedex. Patient had fever and blood culture ordered. Patient is on IV vancomycin per ID recommendation. Neuro consulted and recommend MRI. Continue to monitor. Prognosis is guarded. 10/17: Remains with C.DIFF and Bactermia, Poor prognosis. No purposeful movement. MRI and EEG discussed with Intensvisit, Continue aggressive BP control. 10/18: Blood pressure better controlled MRI done 10/15 shows mild improvement in edema. We will continue to monitor mother was at bedside yesterday. Nursing documentation trach and PEG discussed with the mother including goals of care. She is still in denial about the gravity of her daughters her condition which is understandable considering her age. Continue aggressive management at this time. Await for bacteremia to clear by ID before placing PICC line. 10/19: Patient for possible PEG and Trach, ID following, repeat cultures remain negative. Poor prognosis 10/20: Pt noted to DVT and SVT in the RUE, Vascular consult and will also obtain Hematology for possible considering changing in Anticoagulation. CONTINUE TO MONITOR H/H and PLT. Family updated by Intens[employer]it. Heparin gtt started. Will check CBC and BMP 10/21: Continue supporive care, Diarrhea now resolving, But still with persistent Fever, May need repeat CT/AP per ID, still with profused Encephalopathy 10/22: Continue supportive care, weaning, awaiting repeat Imaging. FOLLOW Fever curve. Enoxparin restarted 10/23: Continue supportive care, wean as tolerated. 10/24; Started on CPAP trial, discussed with pulmonary, still with diarrhea. 10/25: Patients seen and examined, no clinical changes, still with diarrhea. ?meaningful recovery. 10/26: Clinically unchanged, continue CPAP trial, Will discuss with Neurology about re-evaluation, ?Need for repeat CT head. ?PRESS considering initial elevated BP, now stable. 10/27; tracheostomy on vent, weaning trials, vital signs noted, poor prognosis 10/28; unable to wean, tracheostomy on vent. Sepsis. Continue current management. Consults and recommendations noted and appreciated 10/30/2020;Patient on T-piece 5 L of oxygen not in acute distress, noncommunicative 11/02/2020; patient on T-piece 5 L of oxygen 11/03/2020; patient's fever slightly improved low-grade, continue current management, remains on T-piece with 5 L of oxygen 11/04/2020; T-max last 24 hours 100.3 F, new cultures negative to date, monitor off antibiotics Patient is off Levophed, blood pressures reasonable level, tracheostomy on T- piece 3 to 5 L nasal cannula oxygen 11/05/2020; tracheostomy on T-piece patient remains on 5 L of nasal cannula oxygen, unresponsive severe hypoxic brain injury I called patient's mother Ms. Pamela Bassett as well as patient's spouse Mr. Danilo Dimas at [phone] unable to reach them Left voicemail on Ms. Pamela Bassettz phone and encouraged him to call back 11/06/2020; I tried to call again today Ms. Pamela Bassett to discuss patient's condition and treatment plan and update consultants recommendations and patient's prognosis., unable to reach her 11/07/20 Will try LTAC/Hospice 11/08/20 Same condition 11/09/2020 Same condition 11/10/2020; family conference was held by case management yesterday 11/09/2020, family decided and agreed for SNF placement 11/11/2020; patient seen and examined, clinically no change tracheostomy on 5 L of nasal cannula oxygen, hemodynamically and clinically stable for discharge To LTAC versus SNF, DC planning per case management 11/12/2020; clinically no change, continue current management, DC planning per case management possible SNF placement 11/13/2020; patient is receiving herpes flareup treatment per ID 11/14/2020; clinically no change, awaiting SNF placement 11/15/2020; clinically no change, tracheostomy on T-piece on 5 L oxygen, awaiting placement 11/16/2020; patient awaiting placement 11/18/2020; abdominal CT scan negative for insulinoma or pancreatic tumor ,clinically no change Awaiting SNF placement 11/19/2020; remains on 4 L of oxygen tracheostomy via T-piece, awaiting SNF placement 11/20/2020 Awaiting SNF placement 11/21/2020 Waiting for SNF placement 11/22/2020 Waiting for placement 11/23/2020 Waiting for placement 11/24/2020 through 12/24/2020 Patient waiting for placement 11/27/2020; patient remains hypoglycemic on D10 W IV fluids, CT abdomen negative for insulinoma Remains stable awaiting SNF placement, tracheostomy on 5 L oxygen via T-piece 11/28/2020; awaiting SNF placement 11/29/2020; patient remains unresponsive, tracheostomy on T-piece, on 4 to 5 L of oxygen Wean as tolerated, DC planning per case management possible SNF placement 11/30/2020; awaiting SNF placement 12/02/2020; awaiting placement, stable for discharge 12/03/2020; clinically no change, awaiting placement, tracheostomy on T-piece, anoxic brain injury 12/04/2020 Patient has anoxic encephalopathy with anoxic brain brain injury Awaiting placement 12/03/20 11:30: Pt brought to L&D triage for evaluation of possible labor. Pt accompanied by her spouse. Pt spouse poor historian; unable to obtain history- allergies at this time. Pt taken from registration to triage area via WC. Pt unresponsive, actively seizing with snorous respirations. gluing machine adjuster, Kassy, called and requesting assistance. 11:35: Multiple staff at bedside. Pt 02 sat 67% on nonrebreather, unable to read BP at this time. Yifan Theodore CRNA, at bedside for intubation and assistance wi th IV insertion. INT attempt by multiple RNs unsuccessful at this time. 11:42: Pt being bagged by KORIN, 02% 79%. No pulse palpated, compressions started at this time; bharati young called and Dr. Newberry preparing OR for emergent c/s. 11:44: Continued compressions on stretcher while transporting pt to OR 1. Pt being bagged with jaw thrust manuever in place by KORIN Stringer student. 11:45: Arrival to OR 1. Dr. Newberry and Dr. Portillo present for emergent c/s. Code team arrived for continued care. patient revived and c/s done Patient has been bleeding from C/s site followed by supracervical hysterectomy for severe bleeding Patient transfused multiple units of PRBC, Patient in DIC. Transferred to the ICU 10/03. Patient seen and examined at bedside this morning. Patient is nonresponsive and mechanically ventilated. On pressors. Labs reviewed-has leukocytosis, anemia, thrombocytopenia, ADOLPH and lactic acidosis. Started on IV antibiotics to cover possible sepsis secondary to DIC. Hematology oncology recommendations appreciated-needs additional cryoprecipitate and FFP. Monitor D-dimer, fibrinogen and frequent labs. Nephrology consulted for lactic acidosis and ADOLPH. 10/04. Remains mechanically ventilated. [place] antibiotics. Labs shows improved acidosis - lactic acid 3.5. Hb drop noted. Getting transfused 2 units PRBCs. Platelet count is ~40k. Continue to monitor labs closely. Critical care team on board. 10/05; xray reviewed, concerning for multifocal infilrate, likely underlying Pneumonia, will add ID consult to assist with management of this critically ill patient, start tube feed, closely monitor renal system 10/06: Resumed care, remains on mechanical ventilation. No active bleeding, H&H stable. Continue to monitor CBC and BMP. Continue IV antibiotic for underlying pneumonia. Follow critical care and ID recommendation. 10/07: Remains on mechanical ventilation. No active bleeding, H&H stable. Critical care following, wean off ventilation as tolerated. 10/08: Patient had another cardiac arrest last night. Remains on mechanical ventilation, update family. Continue supportive care -poor prognosis 10/09: Called patient mother and discussed about patient care and management. Answered all question to best of my knowledge and family satisfaction. Patient remains on mechanical ventilation, cardiac arrest x2 so far. Critically sick, poor prognosis 10/10: remains on mechanical ventilation. h/h stable, no active bleeding. monitor CBC/BMP 10/11: WBC trended up with diarrhea, started on vancomycin po. remains on MV, off pressor, tolerating TF 10/12: remains on MV, off pressor, tolerating TF. called family for update but unable to reach, could not leave message as it was full. cont supportive care, wean off vent as tolerated. 10/13/2020; patient is on mechanical ventilation, tolerating tube feeding. Patient has labored breathing. Neuro was consulted and recommend MRI. Patient is on Precedex. Rectal tube in place. 10/14/2020; patient is on mechanical ventilation, Precedex. Patient had fever and blood culture ordered. Patient is on IV vancomycin per ID recommendation. Neuro consulted and recommend MRI. Continue to monitor. Prognosis is guarded. 10/15/2020; patient is on mechanical ventilation, Precedex. Patient had fever and blood culture ordered. Patient is on IV vancomycin per ID recommendation. Neuro consulted and recommend MRI. Continue to monitor. Prognosis is guarded. 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 12/06/20; anoxic brain injury. Awaiting placement. 12/07/2020; anoxic brain injury, awaiting placement. 12/09/2020; anoxic brain injury, awaiting placement. 12/10/2020; patient had episodes of fever overnight. CBC, BMP, blood culture, UA and chest x-ray ordered, will follow and manage accordingly. Urinalysis is suggestive of UTI and I put the patient on ceftriaxone, order urine culture. Chest x-ray is normal. 12/11/2020; patient is on ceftriaxone day 2 for UTI. We will continue to follow urine culture. 12/12/2020. Day #3 of Rocephin for UTI. We will continue for 2 more days while she is here. Present UTI. 12/13/2020. Day #4 of Rocephin for UTI. Patient remains on 50% with tra cheostomy. Remains unresponsive with evidence of anoxic encephalopathy unable to make needs known. 12/14/2020. Day #5 of Rocephin for UTI completed today. Remains encephalopathic unable to make needs known. Remains on 50% unable to decrease oxygen via tracheostomy. Overall prognosis remains extremely poor. 30: Continue to monitor. Stop and monitor antibiotics at this time. Continue to wean oxygen as tolerated. Wean oxygen as tolerated. Case management working on placement. 12/16: Continue supportive care aspiration precautions. Awaiting placement discussion. Monitor fever curve. Prognosis remains poor no evidence of neurological recovery as of today 3/4: Continue supportive care, check labs and chest xray. Still monitor off antibiotics. Monitor Sodium level 12/18: Patient remains with intermittent low grade fever, reviewed EEG from September again, consistent for Ischemic Hypoxic Encephalopathy, patient with decorticating posturing type presentation. Will discuss with sample book maker to optimize diet so we can discontinue D5. CXR with no abnormality. Discussed extensively with the nursing staff at bedside CXR IMPRESSION: 1. No acute findings. 12/19: No clinical change 12/20: No clinical change, now off abx, monitor, discussed her medications with our pharmacist I believe that her posture and rigidity is likely from underlying anoxic encephalopathy. Continue to monitor and await placement decision. Continue aggressive suctioning. Plan discussed in detail with the nursing staff 12/21: Continue supportive care. Will give 500 cc bolus of fluid today to replace insensible losses. Tachycardia appears to be improving. Blood pressure precludes adjusting cardiac meds. Still awaiting placement from case management. Plan discussed in detail with the nursing staff 12/22. Continue support supportive care. Tracheostomy and PEG in place. Remains nonresponsive. Awaiting placement. 12/23. Continue support supportive care. Tracheostomy and PEG in place. Remains nonresponsive. Awaiting placement. Remains tachycardic. Decrease dose of lasix. Will try low dose metoprolol. Monitor BP closely 12/24. Continue support supportive care. Tracheostomy and PEG in place. Remains nonresponsive. Awaiting placement. Heart rate slightly better. Continue to monitor BP closely 12/25. Continue support supportive care. Tracheostomy and PEG in place. Remains nonresponsive. Awaiting placement. 12/26. Continue support supportive care. Tracheostomy and PEG in place. Remains nonresponsive. Awaiting placement 12/27. Continue support supportive care. Tracheostomy and PEG in place. Remains nonresponsive. Awaiting placement 12/28. Had fever yesterday. Blood culture drawn. UA - UTI - started on antibiotics. Now tracheal aspirate is growing GN rods. 12/29: Continue IV antibiotics, continue supportive care. Since admission patient has shown minimal or no chance of neurological recovery. Need 24/7 assistance. Currently on trach and PEG, nonverbal. Waiting on SNF placement. Discussed with major case detective today. 12/30: Continue IV antibiotics for UTI, continue supportive care. Pending placement 12/31: continue supportive care. continue supportive care. Pending placement 01/01: continue supportive care. Pending placement. cont Iv abx for UTI till 01/04 01/02: Continue supportive care, pending placement. Sodium level slightly elevated, will start hypotonic fluid. Continue antibiotics till 01/04 01/03; cont hypotonic fluid, increase free water with TF for hypernatremia, follow BMP. cont supportive care. pending placement. cont cefepime. recx blood 01/04: resolved hyponatremia, cont supportive care, pending placement. Last day of supplement today. 01/05: Continue supportive care, pending placement. Monitor H&H and fever curve off antibiotic. 01/06; monitor off abx, suction as needed, Continue supportive care, pending placement. 01/07: Discharge pending on placement, vitals stable. Continue supportive care 01/08: Discharge pending on placement, vitals stable. Continue supportive care. stop lasix, increase metoprolol to 25mg BID for ST. 01/09 patient resting with eyes closed. Opens eyes to tactile stimulus, has a blink reflex, does not follow simple commands, has a T-collar / G-tube Lab results reviewed, low-grade fever, 01/10 Eyes open, does not follow simple commands, no acute events overnight 01/11 no acute events overnight, Waiting for placement 01/12 No acute events overnight. Patient awaiting for placement 01/13. No new issues. Awaiting placement 01/14. No new issues. Awaiting placement. 01/15. No new issues. Awaiting placement. 01/16. No new issues. Patient remain stable. Awaiting placement. Check maintenance labs. 01/17. Routine maintenance labs were ordered and are still pending. Await placement. 01/18. Patient with low-grade fever past 24-48 hrs. WBC within normal limits. Check chest x-ray, urinalysis and consider blood cultures. Continue tracheostomy care, secretion control and airway management. Patient currently with PEG and tube feedings at 60 cc an hour. Nutritional support and aspiration precautions. 01/19. Temperature 100.7 overnight. Continue to monitor closely. Continue tracheostomy care, secretion control and airway management. Patient currently with PEG and tube feedings at 60 cc an hour. Nutritional support and aspiration precautions. 01/20. Continue to monitor closely. Continue tracheostomy care, secretion control and airway management. Patient currently with PEG and tube feedings at 60 cc an hour. Nutritional support and aspiration precautions. 01/21. Afebrile overnight. Continue to monitor closely. Continue tracheostomy care, secretion control and airway management. Patient currently with PEG and tube feedings at 60 cc an hour. Nutritional support and aspiration precautions. 01/22. Continue to monitor closely. Continue tracheostomy care, secretion control and airway management. Patient currently with PEG and tube feedings at 60 cc an hour. Nutritional support and aspiration precautions. 01/23. Continue tracheostomy care, secretion control and airway management. Patient currently with PEG and tube feedings at 60 cc an hour. Nutritional support and aspiration precautions. Will get routine labs tomorrow. 01/24. Labs reviewed. No abnormalities. Continue tracheostomy care, secretion control and airway management. Patient currently with PEG and tube feedings at 60 cc an hour. Nutritional support and aspiration precautions. 01/25. Temp 100.6. More sleepy today. Will get chest xray, blood culture, urinalysis, sputum cultures. Will start on empirical abx. 01/26: Vitals noted, slightly tachycardic. Follow culture work-up, continue sup portive care. 01/27: Spiking low-grade temp, negative UA, sputum culture and recent blood cultures also negative. Continue to monitor off antibiotics. Continue supportive care. Pending placement. 01/28: cont to spike low grade temp, negative UA, sputum culture and recent blood cultures also negative. Continue to monitor off antibiotics. will order fpr sinus xry. Continue supportive care. Pending placement. 01/29: Continue to follow clinically, intermittently spiking low-grade temp, all recent culture work is negative, negative UA, normal respiratory jaylan 1 tracheal aspirate. Vitals noted and currently stable. Pending placement 01/30: Clinically unchanged, continue to monitor vitals, continue supportive cares. Pending placement. Discussed plan of care with RN at the bedside. 01/31 - TODATE: cont supportive care, pending placement. monitor vitals carefully. Discussed with family at the bedside. 02/06. Patient afebrile today. Continue trach care. Secretions stable today. Culture data negative so far. Awaiting placement. 02/07. Awaiting placement awaiting family member to evaluate papers. Continue trach care secretions stable. Pending placement 02/09: Intermittent fever, ?drug related, will check cxr and also labs. No new complaints. 02/10: Patient's trach dislodged today. Nevertheless respiratory status is intact attempt to reinsert was unsuccessful will monitor discussed with nursing staff to pay close attention to the patient. Considering that this was not a planned decannulation I will start the patient on continuous pulse ox until full evaluation was done by pulmonary. 02/13/2021 Vital signs stable Unresponsive secondary to anoxic encephalopathy Awaiting placement 02/14/2021 Awaiting placement 02/15/2021 Anoxic encephalopathy Awaiting placement 02/16/2021 Anoxic encephalopathy Awaiting placement 02/17/2021 Anoxic encephalopathy awaiting placement 02/18/2021 Anoxic encephalopathy awaiting placement 02/19/2021 Anoxic encephalopathy awaiting placement 02/20/2021 Anoxic encephalopathy awaiting placement 02/21/2021 Anoxic encephalopathy awaiting placement 02/22/2021 Anoxic encephalopathy awaiting placement 02/23/2021 Anoxic encephalopathy awaiting placement Objective - Exam Narrative Exam: Patient with tracheostomy - Constitutional Vitals: Vital Signs - 12hr 02/23/21 02/23/21 02/23/21 05:13 11:11 11:22 Temperature 98.8 F 99.0 F Pulse Rate 99 H 110 H 110 H Respiratory 18 24 Rate Blood Pressure 115/71 116/72 116/72 O2 Sat by Pulse 97 99 Oximetry General appearance: Present: no acute distress, well-nourished - EENT Eyes: PERRL, EOM intact ENT: hearing intact, clear oral mucosa, other (Trach in place) Ears: bilateral: normal - Neck Neck: supple, normal ROM - Respiratory Respiratory effort: normal Respiratory: bilateral: CTA - Breasts Breasts: normal - Cardiovascular Rhythm: regular Heart Sounds: Present: S1 & S2. Absent: gallop, rub Extremities: pulses intact, No edema, normal color, Full ROM - Gastrointestinal General gastrointestinal: Present: soft, non-tender, non-distended, normal bowel sounds - Genitourinary Female genitourinary: normal - Integumentary Integumentary: clear, warm, dry - Musculoskeletal Musculoskeletal: 1, strength equal bilaterally - Neurologic Neurologic: moves all extremities - Psychiatric Psychiatric: other (Unresponsive) - Allied health notes Allied health notes reviewed: nursing, case management - Labs CBC & Chem 7: 02/12/21 04:09 02/12/21 04:09 Labs: Abnormal lab results 02/22/21 Range/Units 23:11 POC Glucose 107 H (70-105) mg/dL HEART Score - HEART Score Age: < 45 Risk factors: 1-2 risk factors - Critical Actions Critical Actions: >7 pts:50-65% risk of adverse cardiac event. Early invasive measures
[2021-02-23] MEDS: ALPRAZolam 0.25 MG TAB PO PRN (22:06)
[2021-02-24] MEDS: ENOXAPARIN 40 MG/0.4 ML INJ SUB-Q SCH (09:05)
[2021-02-24] MEDS: METOPROLOL TARTRATE 25 MG TAB PO SCH ×2 (09:05→22:35)
[2021-02-24] MEDS: FAMOTIDINE 20 MG TAB PO SCH ×2 (09:05→22:35)
--- NOTE | 2021-02-25 00:58 | Progress Note ---
Assessment and Plan Assessment and Plan 30 y/o female patient with Eclampsia/help syndrome, s/p emergent section with DIC, hemorrhage, supracervical abdominal hysterectomy, acute respiratory failure , tracheostomy on T-piece with morbid obesity, s/p cardiac arrest 12/08/2019 status post CPR per ACLS, acute hypoxic brain injury Acute kidney injury improved, severe shock requiring pressors, DIC septic shock improved, history of C. difficile colitis completed treatment with vancomycin. Tracheostomy on T-piece, continues to require 5 L of oxygen. Herpetic flareup, ID started treatment with antibiotics, patient is waiting for SNF placement DC planning per case management Assessment and plan: --Persistent hypoglycemia; patient is requiring continuous D10 W infusion CT abdomen done to rule out insulinoma, CT abdomen report negative for pancreatic tumor We will closely monitor --Cardiac arrest; 10/07/2020 ,status post CPR --Acute hypoxic brain injury; Supportive care, closely monitor --Acute hypoxic respiratory failure: Tracheostomy on T-piece , today on 4.5 L oxygen, saturating 100% Supportive care, Pulmonary critical following COVID-19 negative C. difficile positive; Patient on contact isolation Completed treatment --Afebrile: Blood, urine, tracheal aspirate cultures New cultures negative to date Monitor off antibiotics Closely monitor --Sepsis; received antibiotics Continue to monitor off antibiotics ID following --COVID-19 test negative; 10/08/2020 --C. difficile colitis test; positive; 10/16/2020 --Acute metabolic encephalopathy --Acute kidney injury; vasomotor nephropathy Resolved, renal function within normal limits, closely monitor --Shock; monitor of pressors Blood pressures reasonable level --DIC; sepsis, septic shock, resolved --History of preeclampsia; / hemorrhage Status post hysterectomy --History of C. difficile colitis; completed oral vancomycin --DVT/SVT and right upper extremity Very poor prognosis, Consults recommendations noted and appreciated We will closely monitor the patient and adjust management as needed Plan of care reviewed with the patient's nurse. Waiting for [facility] facility placement Subjective Date of service: 02/24/21 Principal diagnosis: Eclampsia/HELLP Syndrome, ADOLPH, DIC; s/p , s/p supracervical hyst Interval history: 30 y/o female patient with Eclampsia/help syndrome, s/p emergent section with DIC, hemorrhage, supracervical abdominal hysterectomy, acute respiratory failure , tracheostomy on T-piece with morbid obesity, s/p cardiac arrest 12/08/2019 status post CPR per ACLS, acute hypoxic brain injury Acute kidney injury improved, severe shock requiring pressors, DIC septic shock improved, history of C. difficile colitis on vancomycin. Tracheostomy on T-piece, continues to require 5 L of oxygen. Brief history; 30 year old -[place] female CHE 10/25/20 at 36w5d who presents with seizures in triage on 10/02/20. Pt was not able to provide history but per pt's , she presented to the hospital to return a 24 hour urine specimen for analysis. She then suddenly reported that she did not feel good. She was taken to labor and delivery and shortly after arrival, she began seizing. During this time, a code met was called because the patient became hypoxic. She was then noted to be without a pulse. Chest compressions were started immediately, and the patient was emergently taken to the operating room for delivery of the fetus. Off note, This patient has had care at [facility] with coma nagement by [facility] since 11 wks complicated by ADHD, morbid obesity, generalized anxiety disorder, panic attacks, chronic narcotic use, fibromyalgia, GERD, Irritable Bowel Syndrome, Migraines, h/o endometrial ablation and ovarian vein embolization, genital herpes, insomnia, LGA fetus, nausea and vomiting, polyhydramnios, quad screen positive for Down's Syndrome, and previous x 3. She is GBS negative. , Patient tracheostomy on ventilatory support, unable to wean, continue supportive care poor prognosis 11:30: Pt brought to L&D triage for evaluation of possible labor. Pt accompanied by her spouse. Pt spouse poor historian; unable to obtain history- allergies at this time. Pt taken from registration to triage area via WC. Pt unresponsive, actively seizing with snorous respirations. senior sous chef, Kassy, called and requesting assistance. 11:35: Multiple staff at bedside. Pt 02 sat 67% on nonrebreather, unable to read BP . Yifan Theodore CRNA, at bedside for intubation and assistance with IV insertion. INT attempt by multiple RNs unsuccessful at this time. 11:42: Pt being bagged by KORIN, 02% 79%. No pulse palpated, compressions on at this time; bharati young called and Dr. Newberry preparing OR for emergent c/s. 11:44: Continued compressions on stretcher while transporting pt to OR 1. Pt being bagged with jaw thrust manuever in place by KORIN Stringer student. 11:45: Arrival to OR 1. Dr. Newberry and Dr. Portillo present for emergent c/s. Code team arrived for continued care. patient revived and c/s done Patient has been bleeding from C/s site followed by supracervical hysterectomy for severe bleeding, Patient transfused multiple units of PRBC, Patient in DIC. Patient transferred to the ICU Hospital course; 10/03. Patient seen and examined at bedside this morning. Patient is no nresponsive and mechanically ventilated. On pressors. Labs reviewed-has leukocytosis, anemia, thrombocytopenia, ADOLPH and lactic acidosis. Started on IV antibiotics to cover possible sepsis secondary to DIC. Hematology oncology recommendations appreciated-needs additional cryoprecipitate and FFP. Monitor D-dimer, fibrinogen and frequent labs. Nephrology consulted for lactic acidosis and ADOLPH. 10/04. Remains mechanically ventilated. Kevin antibiotics. Labs shows improved acidosis - lactic acid 3.5. Hb drop noted. Getting transfused 2 units PRBCs. Platelet count is ~40k. Continue to monitor labs closely. Critical care team on board. 10/05; xray reviewed, concerning for multifocal infilrate, likely underlying Pneumonia, will add ID consult to assist with management of this critically ill patient, start tube feed, closely monitor renal system 10/06: Resumed care, remains on mechanical ventilation. No active bleeding, H&H stable. Continue to monitor CBC and BMP. Continue IV antibiotic for underlying pneumonia. Follow critical care and ID recommendation. 10/07: Remains on mechanical ventilation. No active bleeding, H&H stable. Critical care following, wean off ventilation as tolerated. 10/08: Patient had another cardiac arrest last night. Remains on mechanical ventilation, update family. Continue supportive care -poor prognosis 10/09: Called patient mother and discussed about patient care and management. Answered all question to best of my knowledge and family satisfaction. Patient remains on mechanical ventilation, cardiac arrest x2 so far. Critically sick, poor prognosis 10/10: remains on mechanical ventilation. h/h stable, no active bleeding. monitor CBC/BMP 10/11: WBC trended up with diarrhea, started on vancomycin po. remains on MV, off pressor, tolerating TF 10/12: remains on MV, off pressor, tolerating TF. called family for update but unable to reach, could not leave message as it was full. cont supportive care, wean off vent as tolerated. 10/13/2020; patient is on mechanical ventilation, tolerating tube feeding. Patient has labored breathing. Neuro was consulted and recommend MRI. Patient is on Precedex. Rectal tube in place. 10/14/2020; patient is on mechanical ventilation, Precedex. Patient had fever and blood culture ordered. Patient is on IV vancomycin per ID recommendation. Neuro consulted and recommend MRI. Continue to monitor. Prognosis is guarded. 10/15/2020; patient is on mechanical ventilation, Precedex. Patient had fever and blood culture ordered. Patient is on IV vancomycin per ID recommendation. Neuro consulted and recommend MRI. Continue to monitor. Prognosis is guarded. 10/17: Remains with C.DIFF and Bactermia, Poor prognosis. No purposeful movement. MRI and EEG discussed with Intensvisit, Continue aggressive BP control. 10/18: Blood pressure better controlled MRI done 10/15 shows mild improvement in edema. We will continue to monitor mother was at bedside yesterday. Nursing documentation trach and PEG discussed with the mother including goals of care. She is still in denial about the gravity of her daughters her condition which is understandable considering her age. Continue aggressive management at this time. Await for bacteremia to clear by ID before placing PICC line. 10/19: Patient for possible PEG and Trach, ID following, repeat cultures remain negative. Poor prognosis 10/20: Pt noted to DVT and SVT in the RUE, Vascular consult and will also obtain Hematology for possible considering changing in Anticoagulation. CONTINUE TO MONITOR H/H and PLT. Family updated by [employer]ens[employer]. Heparin gtt started. Will check CBC and BMP 10/21: Continue supporive care, Diarrhea now resolving, But still with persistent Fever, May need repeat CT/AP per ID, still with profused Encephalopathy 10/22: Continue supportive care, weaning, awaiting repeat Imaging. FOLLOW Fever curve. Enoxparin restarted 10/23: Continue supportive care, wean as tolerated. 10/24; Started on CPAP trial, discussed with pulmonary, still with diarrhea. 10/25: Patients seen and examined, no clinical changes, still with diarrhea. ?meaningful recovery. 10/26: Clinically unchanged, continue CPAP trial, Will discuss with Neurology about re-evaluation, ?Need for repeat CT head. ?PRESS considering initial elevated BP, now stable. 10/27; tracheostomy on vent, weaning trials, vital signs noted, poor prognosis 10/28; unable to wean, tracheostomy on vent. Sepsis. Continue current management. Consults and recommendations noted and appreciated 10/30/2020;Patient on T-piece 5 L of oxygen not in acute distress, noncommunicative 11/02/2020; patient on T-piece 5 L of oxygen 11/03/2020; patient's fever slightly improved low-grade, continue current management, remains on T-piece with 5 L of oxygen 11/04/2020; T-max last 24 hours 100.3 F, new cultures negative to date, monitor off antibiotics Patient is off Levophed, blood pressures reasonable level, tracheostomy on T- piece 3 to 5 L nasal cannula oxygen 11/05/2020; tracheostomy on T-piece patient remains on 5 L of nasal cannula oxygen, unresponsive severe hypoxic brain injury I called patient's mother Ms. Pamela Bassett as well as patient's spouse Mr. Danilo Dimas at [phone] unable to reach them Left voicemail on Ms. Pamela Bassettz phone and encouraged him to call back 11/06/2020; I tried to call again today Ms. Pamela Bassett to discuss patient's condition and treatment plan and update consultants recommendations and patient's prognosis., unable to reach her 11/07/20 Will try LTAC/Hospice 11/08/20 Same condition 11/09/2020 Same condition 11/10/2020; family conference was held by case management yesterday 11/09/2020, family decided and agreed for SNF placement 11/11/2020; patient seen and examined, clinically no change tracheostomy on 5 L of nasal cannula oxygen, hemodynamically and clinically stable for discharge To LTAC versus SNF, DC planning per case management 11/12/2020; clinically no change, continue current management, DC planning per case management possible SNF placement 11/13/2020; patient is receiving herpes flareup treatment per ID 11/14/2020; clinically no change, awaiting SNF placement 11/15/2020; clinically no change, tracheostomy on T-piece on 5 L oxygen, awaiting placement 11/16/2020; patient awaiting placement 11/18/2020; abdominal CT scan negative for insulinoma or pancreatic tumor ,clinically no change Awaiting SNF placement 11/19/2020; remains on 4 L of oxygen tracheostomy via T-piece, awaiting SNF placement 11/20/2020 Awaiting SNF placement 11/21/2020 Waiting for SNF placement 11/22/2020 Waiting for placement 11/23/2020 Waiting for placement 11/24/2020 through 12/24/2020 Patient waiting for placement 11/27/2020; patient remains hypoglycemic on D10 W IV fluids, CT abdomen negative for insulinoma Remains stable awaiting SNF placement, tracheostomy on 5 L oxygen via T-piece 11/28/2020; awaiting SNF placement 11/29/2020; patient remains unresponsive, tracheostomy on T-piece, on 4 to 5 L of oxygen Wean as tolerated, DC planning per case management possible SNF placement 11/30/2020; awaiting SNF placement 12/02/2020; awaiting placement, stable for discharge 12/03/2020; clinically no change, awaiting placement, tracheostomy on T-piece, anoxic brain injury 12/04/2020 Patient has anoxic encephalopathy with anoxic brain brain injury Awaiting placement 12/03/2020; clinically no change, awaiting placement, tracheostomy on T-piece, anoxic brain injury 12/04/2020 Patient has anoxic encephalopathy with anoxic brain brain injury Awaiting placement 12/05/2020; anoxic brain injury, awaiting placement. 12/06/20; anoxic brain injury. Awaiting placement. 12/07/2020; anoxic brain injury, awaiting placement. 12/09/2020; anoxic brain injury, awaiting placement. 12/10/2020; patient had episodes of fever overnight. CBC, BMP, blood culture, UA and chest x-ray ordered, will follow and manage accordingly. Urinalysis is suggestive of UTI and I put the patient on ceftriaxone, order urine culture. Chest x-ray is normal. 12/11/2020; patient is on ceftriaxone day 2 for UTI. We will continue to follow urine culture. 12/12/2020. Day #3 of Rocephin for UTI. We will continue for 2 more days while she is here. Present UTI. 12/13/2020. Day #4 of Rocephin for UTI. Patient remains on 50% with tracheostomy. Remains unresponsive with evidence of anoxic encephalopathy unable to make needs known. 12/14/2020. Day #5 of Rocephin for UTI completed today. Remains encephalopathic unable to make needs known. Remains on 50% unable to decrease oxygen via tracheostomy. Overall prognosis remains extremely poor. 12/15: Continue to monitor. Stop and monitor antibiotics at this time. Continue to wean oxygen as tolerated. Wean oxygen as tolerated. Case management working on placement. 12/16: Continue supportive care aspiration precautions. Awaiting placement discus maggy. Monitor fever curve. Prognosis remains poor no evidence of neurological recovery as of today 12/17: Continue supportive care, check labs and chest xray. Still monitor off antibiotics. Monitor Sodium level 12/18: Patient remains with intermittent low grade fever, reviewed EEG from September again, consistent for Ischemic Hypoxic Encephalopathy, patient with decorticating posturing type presentation. Will discuss with roof fixer to optimize diet so we can discontinue D5. CXR with no abnormality. Discussed extensively with the nursing staff at bedside CXR IMPRESSION: 1. No acute findings. 12/19: No clinical change 12/20: No clinical change, now off abx, monitor, discussed her medications with our pharmacist I believe that her posture and rigidity is likely from underlying anoxic encephalopathy. Continue to monitor and await placement decision. Continue aggressive suctioning. Plan discussed in detail with the nursing staff 12/21: Continue supportive care. Will give 500 cc bolus of fluid today to replace insensible losses. Tachycardia appears to be improving. Blood pressure pre cludes adjusting cardiac meds. Still awaiting placement from case management. Plan discussed in detail with the nursing staff 12/22. Continue support supportive care. Tracheostomy and PEG in place. Remains nonresponsive. Awaiting placement. 12/23. Continue support supportive care. Tracheostomy and PEG in place. Remains nonresponsive. Awaiting placement. Remains tachycardic. Decrease dose of lasix. Will try low dose metoprolol. Monitor BP closely 12/24. Continue support supportive care. Tracheostomy and PEG in place. Remains nonresponsive. Awaiting placement. Heart rate slightly better. Continue to monitor BP closely 12/25. Continue support supportive care. Tracheostomy and PEG in place. Remains nonresponsive. Awaiting placement. 12/26. Continue support supportive care. Tracheostomy and PEG in place. Remains nonresponsive. Awaiting placement 12/27. Continue support supportive care. Tracheostomy and PEG in place. Remains nonresponsive. Awaiting placement 12/28. Had fever yesterday. Blood culture drawn. UA - UTI - started on antibiotics. Now tracheal aspirate is growing GN rods. 12/29: Continue IV antibiotics, continue supportive care. Since admission patient has shown minimal or no chance of neurological recovery. Need 24/7 assistance. Currently on trach and PEG, nonverbal. Waiting on SNF placement. Discussed with rehabilitation caseworker today. 12/30: Continue IV antibiotics for UTI, continue supportive care. Pending placement 12/31: continue supportive care. continue supportive care. Pending placement 01/01: continue supportive care. Pending placement. cont Iv abx for UTI till 01/04 01/02: Continue supportive care, pending placement. Sodium level slightly elevated, will start hypotonic fluid. Continue antibiotics till 01/04 01/03; cont hypotonic fluid, increase free water with TF for hypernatremia, follow BMP. cont supportive care. pending placement. cont cefepime. recx blood 01/04: resolved hyponatremia, cont supportive care, pending placement. Last day of supplement today. 01/05: Continue supportive care, pending placement. Monitor H&H and fever curve off antibiotic. 01/06; monitor off abx, suction as needed, Continue supportive care, pending placement. 01/07: Discharge pending on placement, vitals stable. Continue supportive care 01/08: Discharge pending on placement, vitals stable. Continue supportive care. stop lasix, increase metoprolol to 25mg BID for ST. 01/09 patient resting with eyes closed. Opens eyes to tactile stimulus, has a blink reflex, does not follow simple commands, has a T-collar / G-tube Lab results reviewed, low-grade fever, 01/10 Eyes open, does not follow simple commands, no acute events overnight 01/11 no acute events overnight, Waiting for placement 01/12 No acute events overnight. Patient awaiting for placement 01/13. No new issues. Awaiting placement 01/14. No new issues. Awaiting placement. 01/15. No new issues. Awaiting placement. 01/16. No new issues. Patient remain stable. Awaiting placement. Check maintenance labs. 01/17. Routine maintenance labs were ordered and are still pending. Await placement. 01/18. Patient with low-grade fever past 24-48 hrs. WBC within normal limits. Check chest x-ray, urinalysis and consider blood cultures. Continue tracheostomy care, secretion control and airway management. Patient currently with PEG and tube feedings at 60 cc an hour. Nutritional support and aspiration precautions. 01/19. Temperature 100.7 overnight. Continue to monitor closely. Continue tracheostomy care, secretion control and airway management. Patient currently with PEG and tube feedings at 60 cc an hour. Nutritional support and aspiration precautions. 01/20. Continue to monitor closely. Continue tracheostomy care, secretion control and airway management. Patient currently with PEG and tube feedings at 60 cc an hour. Nutritional support and aspiration precautions. 01/21. Afebrile overnight. Continue to monitor closely. Continue tracheostomy care, secretion control and airway management. Patient currently with PEG and tube feedings at 60 cc an hour. Nutritional support and aspiration precautions. 01/22. Continue to monitor closely. Continue tracheostomy care, secretion control and airway management. Patient currently with PEG and tube feedings at 60 cc an hour. Nutritional support and aspiration precautions. 01/23. Continue tracheostomy care, secretion control and airway management. Patient currently with PEG and tube feedings at 60 cc an hour. Nutritional support and aspiration precautions. Will get routine labs tomorrow. 01/24. Labs reviewed. No abnormalities. Continue tracheostomy care, secretion control and airway management. Patient currently with PEG and tube feedings at 60 cc an hour. Nutritional support and aspiration precautions. 01/25. Temp 100.6. More sleepy today. Will get chest xray, blood culture, urina lysis, sputum cultures. Will start on empirical abx. 01/26: Vitals noted, slightly tachycardic. Follow culture work-up, continue supportive care. 01/27: Spiking low-grade temp, negative UA, sputum culture and recent blood cultures also negative. Continue to monitor off antibiotics. Continue sup portive care. Pending placement. 01/28: cont to spike low grade temp, negative UA, sputum culture and recent blood cultures also negative. Continue to monitor off antibiotics. will order fpr sinus xry. Continue supportive care. Pending placement. 01/29: Continue to follow clinically, intermittently spiking low-grade temp, all recent culture work is negative, negative UA, normal respiratory jaylan 1 tracheal aspirate. Vitals noted and currently stable. Pending placement 01/30: Clinically unchanged, continue to monitor vitals, continue supportive cares. Pending placement. Discussed plan of care with RN at the bedside. 01/31 - TODATE: cont supportive care, pending placement. monitor vitals carefully. Discussed with family at the bedside. 02/06. Patient afebrile today. Continue trach care. Secretions stable today. Culture data negative so far. Awaiting placement. 02/07. Awaiting placement awaiting family member to evaluate papers. Continue trach care secretions stable. Pending placement 02/09: Intermittent fever, ?drug related, will check cxr and also labs. No new complaints. 02/10: Patient's trach dislodged today. Nevertheless respiratory status is intact attempt to reinsert was unsuccessful will monitor discussed with nursing staff to pay close attention to the patient. Considering that this was not a planned decannulation I will start the patient on continuous pulse ox until full evaluation was done by pulmonary. 02/13/2021 Vital signs stable Unresponsive secondary to anoxic encephalopathy Awaiting placement 02/14/2021 Awaiting placement 02/15/2021 Anoxic encephalopathy Awaiting placement 02/16/2021 Anoxic encephalopathy Awaiting placement 02/17/2021 Anoxic encephalopathy awaiting placement 02/18/2021 Anoxic encephalopathy awaiting placement 02/19/2021 Anoxic encephalopathy awaiting placement 02/20/2021 Anoxic encephalopathy awaiting placement 02/21/2021 Anoxic encephalopathy awaiting placement 02/22/2021 Anoxic encephalopathy awaiting placement 02/23/2021 Anoxic encephalopathy awaiting placement 02/24/2021 Anoxic encephalopathy awaiting placement Objective - Exam Narrative Exam: Patient with tracheostomy - Constitutional Vitals: Vital Signs - 12hr 02/24/21 02/24/21 02/24/21 17:36 22:33 22:35 Temperature 99.2 F 99.3 F Pulse Rate 106 H 114 H 114 H Respiratory 24 20 Rate Blood Pressure 112/65 126/87 126/87 O2 Sat by Pulse 97 92 Oximetry General appearance: Present: no acute distress, well-nourished - EENT Eyes: PERRL, EOM intact ENT: hearing intact, clear oral mucosa, other Ears: bilateral: normal - Neck Neck: supple, normal ROM, other (Trach in place) - Respiratory Respiratory effort: normal Respiratory: bilateral: CTA - Breasts Breasts: normal - Cardiovascular Heart rate: 78 Rhythm: regular Heart Sounds: Present: S1 & S2. Absent: gallop, rub Extremities: pulses intact, No edema, normal color, Full ROM - Gastrointestinal General gastrointestinal: Present: soft, non-tender, non-distended, normal bowel sounds - Genitourinary Female genitourinary: normal - Integumentary Integumentary: clear, warm, dry - Musculoskeletal Musculoskeletal: 1, strength equal bilaterally - Neurologic Neurologic: moves all extremities, other (Unresponsive) - Psychiatric Psychiatric: other (Unresponsive) - Labs CBC & Chem 7: 02/12/21 04:09 02/12/21 04:09 Labs: Abnormal lab results 02/24/21 Range/Units 04:25 POC Glucose 108 H (70-105) mg/dL HEART Score - HEART Score Age: < 45 Risk factors: 1-2 risk factors - Critical Actions Critical Actions: >7 pts:50-65% risk of adverse cardiac event. Early invasive measures
[2021-02-25] MEDS: ENOXAPARIN 40 MG/0.4 ML INJ SUB-Q SCH (12:40)
[2021-02-25] MEDS: FAMOTIDINE 20 MG TAB PO SCH ×2 (12:40→22:08)
[2021-02-25] MEDS: METOPROLOL TARTRATE 25 MG TAB PO SCH (12:41)
[2021-02-25] MEDS: ACETAMINOPHEN 325 MG/10.15 ML ORAL LIQD UNIT DOSE FEEDTUBE PRN (14:50)
[2021-02-26] MEDS: METOPROLOL TARTRATE 25 MG TAB PO SCH ×3 (00:28→21:30)
--- NOTE | 2021-02-26 06:21 | Progress Note ---
Assessment and Plan Assessment and Plan 30 y/o female patient with Eclampsia/help syndrome, s/p emergent section with DIC, hemorrhage, supracervical abdominal hysterectomy, acute respiratory failure , tracheostomy on T-piece with morbid obesity, s/p cardiac arrest 12/08/2019 status post CPR per ACLS, acute hypoxic brain injury Acute kidney injury improved, severe shock requiring pressors, DIC septic shock improved, history of C. difficile colitis completed treatment with vancomycin. Tracheostomy on T-piece, continues to require 5 L of oxygen. Herpetic flareup, ID started treatment with antibiotics, patient is waiting for SNF placement DC planning per case management Assessment and plan: --Persistent hypoglycemia; patient is requiring continuous D10 W infusion CT abdomen done to rule out insulinoma, CT abdomen report negative for pancreatic tumor We will closely monitor --Cardiac arrest; 10/07/2020 ,status post CPR --Acute hypoxic brain injury; Supportive care, closely monitor --Acute hypoxic respiratory failure: Tracheostomy on T-piece , today on 4.5 L oxygen, saturating 100% Supportive care, Pulmonary critical following COVID-19 negative C. difficile positive; Patient on contact isolation Completed treatment --Afebrile: Blood, urine, tracheal aspirate cultures New cultures negative to date Monitor off antibiotics Closely monitor --Sepsis; received antibiotics Continue to monitor off antibiotics ID following --COVID-19 test negative; 10/08/2020 --C. difficile colitis test; positive; 10/16/2020 --Acute metabolic encephalopathy --Acute kidney injury; vasomotor nephropathy Resolved, renal function within normal limits, closely monitor --Shock; monitor of pressors Blood pressures reasonable level --DIC; sepsis, septic shock, resolved --History of preeclampsia; / hemorrhage Status post hysterectomy --History of C. difficile colitis; completed oral vancomycin No diarrhea --DVT/SVT and right upper extremity Very poor prognosis, Consults recommendations noted and appreciated We will closely monitor the patient and adjust management as needed Plan of care reviewed with the patient's nurse. Waiting for longterm facility placement Subjective Date of service: 02/25/21 Principal diagnosis: Eclampsia/HELLP Syndrome, ADOLPH, DIC; s/p , s/p supracervical hyst Interval history: 30 y/o female patient with Eclampsia/help syndrome, s/p emergent section with DIC, hemorrhage, supracervical abdominal hysterectomy, acute respiratory failure , tracheostomy on T-piece with morbid obesity, s/p cardiac arrest 12/08/2019 status post CPR per ACLS, acute hypoxic brain injury Acute kidney injury improved, severe shock requiring pressors, DIC septic shock improved, history of C. difficile colitis on vancomycin. Tracheostomy on T-piece, continues to require 5 L of oxygen. Brief history; 30 year old -[place] female CHE 10/25/20 at 36w5d who presents with seizures in triage on 10/02/20. Pt was not able to provide history but per pt's , she presented to the hospital to return a 24 hour urine specimen for analysis. She then suddenly reported that she did not feel good. She was taken to labor and delivery and shortly after arrival, she began seizing. During this time, a code met was called because the patient became hypoxic. She was then noted to be without a pulse. Chest compressions were started immediately, and the patient was emergently taken to the operating room for delivery of the fetus. Off note, This patient has had care at [facility] with comanagement by [facility] since 11 wks complicated by ADHD, morbid obesity, generalized anxiety disorder, panic attacks, chronic narcotic use, fibromyalgia, GERD, Irritable Bowel Syndrome, Migraines, h/o endometrial ablation and ovarian vein embolization, genital herpes, insomnia, LGA fetus, nausea and vomiting, polyhydramnios, quad screen positive for Down's Syndrome, and previous x 3. She is GBS negative. , Patient tracheostomy on ventilatory support, unable to wean, continue supportive care poor prognosis 11:30: Pt brought to L&D triage for evaluation of possible labor. Pt accompanied by her spouse. Pt spouse poor historian; unable to obtain history- allergies at this time. Pt taken from registration to triage area via . Pt unresponsive, actively seizing with snorous respirations. textile chemist, Kasys, called and requesting assistance. 11:35: Multiple staff at bedside. Pt 02 sat 67% on nonrebreather, unable to read BP . Yifan Theodore CRNA, at bedside for intubation and assistance with IV insertion. INT attempt by multiple RNs unsuccessful at this time. 11:42: Pt being bagged by KORIN, 02% 79%. No pulse palpated, compressions on at this time; code blue called and Dr. Newberry preparing OR for emergent c/s. 11:44: Continued compressions on stretcher while transporting pt to OR 1. Pt being bagged with jaw thrust manuever in place by KORIN Stringer student. 11:45: Arrival to OR 1. Dr. Newberry and Dr. Portillo present for emergent c/s. Code team arrived for continued care. patient revived and c/s done Patient has been bleeding from C/s site followed by supracervical hysterectomy for severe bleeding, Patient transfused multiple units of PRBC, Patient in DIC. Patient transferred to the ICU Hospital course; 10/03. Patient seen and examined at bedside this morning. Patient is nonresponsive and mechanically ventilated. On pressors. Labs reviewed-has leukocytosis, anemia, thrombocytopenia, ADOLPH and lactic acidosis. Started on IV antibiotics to cover possible sepsis secondary to DIC. Hematology oncology recommendations appreciated-needs additional cryoprecipitate and FFP. Monitor D-dimer, fibrinogen and frequent labs. Nephrology consulted for lactic acidosis and ADOLPH. 10/04. Remains mechanically ventilated. Kevin antibiotics. Labs shows improved acidosis - lactic acid 3.5. Hb drop noted. Getting transfused 2 units PRBCs. Platelet count is ~40k. Continue to monitor labs closely. Critical care team on board. 10/05; xray reviewed, concerning for multifocal infilrate, likely underlying Pneumonia, will add ID consult to assist with management of this critically ill patient, start tube feed, closely monitor renal system 10/06: Resumed care, remains on mechanical ventilation. No active bleeding, H&H stable. Continue to monitor CBC and BMP. Continue IV antibiotic for underlying pneumonia. Follow critical care and ID recommendation. 10/07: Remains on mechanical ventilation. No active bleeding, H&H stable. Critical care following, wean off ventilation as tolerated. 10/08: Patient had another cardiac arrest last night. Remains on mechanical ventilation, update family. Continue supportive care -poor prognosis 10/09: Called patient mother and discussed about patient care and management. Answered all question to best of my knowledge and family satisfaction. Patient remains on mechanical ventilation, cardiac arrest x2 so far. Critically sick, poor prognosis 10/10: remains on mechanical ventilation. h/h stable, no active bleeding. monitor CBC/BMP 10/11: WBC trended up with diarrhea, started on vancomycin po. remains on MV, off pressor, tolerating TF 10/12: remains on MV, off pressor, tolerating TF. called family for update but unable to reach, could not leave message as it was full. cont supportive care, wean off vent as tolerated. 10/13/2020; patient is on mechanical ventilation, tolerating tube feeding. Patient has labored breathing. Neuro was consulted and recommend MRI. Patient is on Precedex. Rectal tube in place. 10/14/2020; patient is on mechanical ventilation, Precedex. Patient had fever and blood culture ordered. Patient is on IV vancomycin per ID recommendation. Neuro consulted and recommend MRI. Continue to monitor. Prognosis is guarded. 10/15/2020; patient is on mechanical ventilation, Precedex. Patient had fever and blood culture ordered. Patient is on IV vancomycin per ID recommendation. Neuro consulted and recommend MRI. Continue to monitor. Prognosis is guarded. 10/17: Remains with C.DIFF and Bactermia, Poor prognosis. No purposeful movement. MRI and EEG discussed with Intensvisit, Continue aggressive BP control. 10/18: Blood pressure better controlled MRI done 10/15 shows mild improvement in edema. We will continue to monitor mother was at bedside yesterday. Nursing do cumentation trach and PEG discussed with the mother including goals of care. She is still in denial about the gravity of her daughters her condition which is understandable considering her age. Continue aggressive management at this time. Await for bacteremia to clear by ID before placing PICC line. 10/19: Patient for possible PEG and Trach, ID following, repeat cultures remain negative. Poor prognosis 10/20: Pt noted to DVT and SVT in the RUE, Vascular consult and will also obtain Hematology for possible considering changing in Anticoagulation. CONTINUE TO MONITOR H/H and PLT. Family updated by [employer]. Heparin gtt started. Will check CBC and BMP 10/21: Continue supporive care, Diarrhea now resolving, But still with persistent Fever, May need repeat CT/AP per ID, still with profused Encephalopathy 10/22: Continue supportive care, weaning, awaiting repeat Imaging. FOLLOW Fever curve. Enoxparin restarted 10/23: Continue supportive care, wean as tolerated. 10/24; Started on CPAP trial, discussed with pulmonary, still with diarrhea. 10/25: Patients seen and examined, no clinical changes, still with diarrhea. ?meaningful recovery. 10/26: Clinically unchanged, continue CPAP trial, Will discuss with Neurology about re-evaluation, ?Need for repeat CT head. ?PRESS considering initial elevated BP, now stable. 10/27; tracheostomy on vent, weaning trials, vital signs noted, poor prognosis 10/28; unable to wean, tracheostomy on vent. Sepsis. Continue current management. Consults and recommendations noted and appreciated 10/30/2020;Patient on T-piece 5 L of oxygen not in acute distress, noncommunicative 11/02/2020; patient on T-piece 5 L of oxygen 11/03/2020; patient's fever slightly improved low-grade, continue current management, remains on T-piece with 5 L of oxygen 11/04/2020; T-max last 24 hours 100.3 F, new cultures negative to date, monitor off antibiotics Patient is off Levophed, blood pressures reasonable level, tracheostomy on T- piece 3 to 5 L nasal cannula oxygen 11/05/2020; tracheostomy on T-piece patient remains on 5 L of nasal cannula oxygen, unresponsive severe hypoxic brain injury I called patient's mother Ms. Pamela Bassett as well as patient's spouse Mr. Danilo Dimas at [phone] unable to reach them Left voicemail on Ms. Pamela Bassettz phone and encouraged him to call back 11/06/2020; I tried to call again today Ms. Pamela Bassett to discuss patient's condition and treatment plan and update consultants recommendations and patient's prognosis., unable to reach her 11/07/20 Will try LTAC/Hospice 11/08/20 Same condition 11/09/2020 Same condition 11/10/2020; family conference was held by case management yesterday 11/09/2020, family decided and agreed for SNF placement 11/11/2020; patient seen and examined, clinically no change tracheostomy on 5 L of nasal cannula oxygen, hemodynamically and clinically stable for discharge To LTAC versus SNF, DC planning per case management 11/12/2020; clinically no change, continue current management, DC planning per case management possible SNF placement 11/13/2020; patient is receiving herpes flareup treatment per ID 11/14/2020; clinically no change, awaiting SNF placement 11/15/2020; clinically no change, tracheostomy on T-piece on 5 L oxygen, awaiting placement 11/16/2020; patient awaiting placement 11/18/2020; abdominal CT scan negative for insulinoma or pancreatic tumor ,clinically no change Awaiting SNF placement 11/19/2020; remains on 4 L of oxygen tracheostomy via T-piece, awaiting SNF placement 11/20/2020 Awaiting SNF placement 11/21/2020 Waiting for SNF placement 11/22/2020 Waiting for placement 11/23/2020 Waiting for placement 11/24/2020 through 12/24/2020 Patient waiting for placement 11/27/2020; patient remains hypoglycemic on D10 W IV fluids, CT abdomen negative for insulinoma Remains stable awaiting SNF placement, tracheostomy on 5 L oxygen via T-piece 11/28/2020; awaiting SNF placement 11/29/2020; patient remains unresponsive, tracheostomy on T-piece, on 4 to 5 L of oxygen Wean as tolerated, DC planning per case management possible SNF placement 11/30/2020; awaiting SNF placement 12/02/2020; awaiting placement, stable for discharge 12/03/2020; clinically no change, awaiting placement, tracheostomy on T-piece, anoxic brain injury 12/04/2020 Patient has anoxic encephalopathy with anoxic brain brain injury Awaiting placement 12/03/20 11:30: Pt brought to L&D triage for evaluation of possible labor. Pt accompanied by her spouse. Pt spouse poor historian; unable to obtain history- allergies at this time. Pt taken from registration to triage area via WC. Pt unresponsive, actively seizing with snorous respirations. textile chemist, Kassy, called and requesting assistance. 11:35: Multiple staff at bedside. Pt 02 sat 67% on nonrebreather, unable to read BP at this time. Yifan Theodore CRNA, at bedside for intubation and assistance with IV insertion. INT attempt by multiple RNs unsuccessful at this time. 11:42: Pt being bagged by KORIN, 02% 79%. No pulse palpated, compressions started at this time; bharati young called and Dr. Newberry preparing OR for emergent c/s. 11:44: Continued compressions on stretcher while transporting pt to OR 1. Pt being bagged with jaw thrust manuever in place by KORIN Stringer student. 11:45: Arrival to OR 1. Dr. Newberry and Dr. Portillo present for emergent c/s. Code team arrived for continued care. patient revived and c/s done Patient has been bleeding from C/s site followed by supracervical hysterectomy for severe bleeding Patient transfused multiple units of PRBC, Patient in DIC. Transferred to the ICU 10/03. Patient seen and examined at bedside this morning. Patient is nonres ponsive and mechanically ventilated. On pressors. Labs reviewed-has leukocytosis, anemia, thrombocytopenia, ADOLPH and lactic acidosis. Started on IV antibiotics to cover possible sepsis secondary to DIC. Hematology oncology recommendations appreciated-needs additional cryoprecipitate and FFP. Monitor D-dimer, fibrinogen and frequent labs. Nephrology consulted for lactic acidosis and ADOLPH. 10/04. Remains mechanically ventilated. Kevin antibiotics. Labs shows improved acidosis - lactic acid 3.5. Hb drop noted. Getting transfused 2 units PRBCs. Platelet count is ~40k. Continue to monitor labs closely. Critical care team on board. 10/05; xray reviewed, concerning for multifocal infilrate, likely underlying Pneumonia, will add ID consult to assist with management of this critically ill patient, start tube feed, closely monitor renal system 10/06: Resumed care, remains on mechanical ventilation. No active bleeding, H&H stable. Continue to monitor CBC and BMP. Continue IV antibiotic for underlying pneumonia. Follow critical care and ID recommendation. 10/07: Remains on mechanical ventilation. No active bleeding, H&H stable. Critical care following, wean off ventilation as tolerated. 10/08: Patient had another cardiac arrest last night. Remains on mechanical ventilation, update family. Continue supportive care -poor prognosis 10/09: Called patient mother and discussed about patient care and management. Answered all question to best of my knowledge and family satisfaction. Patient remains on mechanical ventilation, cardiac arrest x2 so far. Critically sick, poor prognosis 10/10: remains on mechanical ventilation. h/h stable, no active bleeding. monitor CBC/BMP 10/11: WBC trended up with diarrhea, started on vancomycin po. remains on MV, off pressor, tolerating TF 10/12: remains on MV, off pressor, tolerating TF. called family for update but unable to reach, could not leave message as it was full. cont supportive care, wean off vent as tolerated. 10/13/2020; patient is on mechanical ventilation, tolerating tube feeding. Patient has labored breathing. Neuro was consulted and recommend MRI. Patient is on Precedex. Rectal tube in place. 10/14/2020; patient is on mechanical ventilation, Precedex. Patient had fever and blood culture ordered. Patient is on IV vancomycin per ID recommendation. Neuro consulted and recommend MRI. Continue to monitor. Prognosis is guarded. 10/15/2020; patient is on mechanical ventilation, Precedex. Patient had fever and blood culture ordered. Patient is on IV vancomycin per ID recommendation. Neuro consulted and recommend MRI. Continue to monitor. Prognosis is guarded. 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 12/06/20; anoxic brain injury. Awaiting placement. 12/07/2020; anoxic brain injury, awaiting placement. 12/09/2020; anoxic brain injury, awaiting placement. 12/10/2020; patient had episodes of fever overnight. CBC, BMP, blood culture, UA and chest x-ray ordered, will follow and manage accordingly. Urinalysis is suggestive of UTI and I put the patient on ceftriaxone, order urine culture. Chest x-ray is normal. 12/11/2020; patient is on ceftriaxone day 2 for UTI. We will continue to follow urine culture. 12/12/2020. Day #3 of Rocephin for UTI. We will continue for 2 more days while she is here. Present UTI. 12/13/2020. Day #4 of Rocephin for UTI. Patient remains on 50% with tracheostomy. Remains unresponsive with evidence of anoxic encephalopathy unable to make needs known. 12/14/2020. Day #5 of Rocephin for UTI completed today. Remains encephalopathic unable to make needs known. Remains on 50% unable to decrease oxygen via tracheostomy. Overall prognosis remains extremely poor. 30: Continue to monitor. Stop and monitor antibiotics at this time. Continue to wean oxygen as tolerated. Wean oxygen as tolerated. Case management working on placement. 12/16: Continue supportive care aspiration precautions. Awaiting placement discussion. Monitor fever curve. Prognosis remains poor no evidence of neurological recovery as of today 3/4: Continue supportive care, check labs and chest xray. Still monitor off antibiotics. Monitor Sodium level 12/18: Patient remains with intermittent low grade fever, reviewed EEG from September again, consistent for Ischemic Hypoxic Encephalopathy, patient with decorticating posturing type presentation. Will discuss with dipper operator to optimize diet so we can discontinue D5. CXR with no abnormality. Discussed extensively with the nursing staff at bedside CXR IMPRESSION: 1. No acute findings. 12/19: No clinical change 12/20: No clinical change, now off abx, monitor, discussed her medications with our pharmacist I believe that her posture and rigidity is likely from underlying anoxic encephalopathy. Continue to monitor and await placement decision. Continue aggressive suctioning. Plan discussed in detail with the nursing staff 12/21: Continue supportive care. Will give 500 cc bolus of fluid today to replace insensible losses. Tachycardia appears to be improving. Blood pressure precludes adjusting cardiac meds. Still awaiting placement from case management. Plan discussed in detail with the nursing staff 12/22. Continue support supportive care. Tracheostomy and PEG in place. Remains nonresponsive. Awaiting placement. 12/23. Continue support supportive care. Tracheostomy and PEG in place. Remains nonresponsive. Awaiting placement. Remains tachycardic. Decrease dose of lasix. Will try low dose metoprolol. Monitor BP closely 12/24. Continue support supportive care. Tracheostomy and PEG in place. Remains nonresponsive. Awaiting placement. Heart rate slightly better. Continue to monitor BP closely 12/25. Continue support supportive care. Tracheostomy and PEG in place. Remains nonresponsive. Awaiting placement. 12/26. Continue support supportive care. Tracheostomy and PEG in place. Remains nonresponsive. Awaiting placement 12/27. Continue support supportive care. Tracheostomy and PEG in place. Remains nonresponsive. Awaiting placement 12/28. Had fever yesterday. Blood culture drawn. UA - UTI - started on antibiotics. Now tracheal aspirate is growing GN rods. 12/29: Continue IV antibiotics, continue supportive care. Since admission patient has shown minimal or no chance of neurological recovery. Need 24/7 assistance. Currently on trach and PEG, nonverbal. Waiting on SNF placement. Discussed with upper caser today. 12/30: Continue IV antibiotics for UTI, continue supportive care. Pending placement 12/31: continue supportive care. continue supportive care. Pending placement 01/01: continue supportive care. Pending placement. cont Iv abx for UTI till 01/04 01/02: Continue supportive care, pending placement. Sodium level slightly elevated, will start hypotonic fluid. Continue antibiotics till 01/04 01/03; cont hypotonic fluid, increase free water with TF for hypernatremia, follow BMP. cont supportive care. pending placement. cont cefepime. recx blood 01/04: resolved hyponatremia, cont supportive care, pending placement. Last day of supplement today. 01/05: Continue supportive care, pending placement. Monitor H&H and fever curve off antibiotic. 01/06; monitor off abx, suction as needed, Continue supportive care, pending placement. 01/07: Discharge pending on placement, vitals stable. Continue supportive care 01/08: Discharge pending on placement, vitals stable. Continue supportive care. stop lasix, increase metoprolol to 25mg BID for ST. 01/09 patient resting with eyes closed. Opens eyes to tactile stimulus, has a blink reflex, does not follow simple commands, has a T-collar / G-tube Lab results reviewed, low-grade fever, 01/10 Eyes open, does not follow simple commands, no acute events overnight 01/11 no acute events overnight, Waiting for placement 01/12 No acute events overnight. Patient awaiting for placement 01/13. No new issues. Awaiting placement 01/14. No new issues. Awaiting placement. 01/15. No new issues. Awaiting placement. 01/16. No new issues. Patient remain stable. Awaiting placement. Check maintenance labs. 01/17. Routine maintenance labs were ordered and are still pending. Await placement. 01/18. Patient with low-grade fever past 24-48 hrs. WBC within normal limits. Check chest x-ray, urinalysis and consider blood cultures. Continue tracheostomy care, secretion control and airway management. Patient currently with PEG and tube feedings at 60 cc an hour. Nutritional support and aspiration precautions. 01/19. Temperature 100.7 overnight. Continue to monitor closely. Continue tracheostomy care, secretion control and airway management. Patient currently with PEG and tube feedings at 60 cc an hour. Nutritional support and aspiration precautions. 01/20. Continue to monitor closely. Continue tracheostomy care, secretion control and airway management. Patient currently with PEG and tube feedings at 60 cc an hour. Nutritional support and aspiration precautions. 01/21. Afebrile overnight. Continue to monitor closely. Continue tracheostomy care, secretion control and airway management. Patient currently with PEG and tube feedings at 60 cc an hour. Nutritional support and aspiration precautions. 01/22. Continue to monitor closely. Continue tracheostomy care, secretion control and airway management. Patient currently with PEG and tube feedings at 60 cc an hour. Nutritional support and aspiration precautions. 01/23. Continue tracheostomy care, secretion control and airway management. Patient currently with PEG and tube feedings at 60 cc an hour. Nutritional support and aspiration precautions. Will get routine labs tomorrow. 01/24. Labs reviewed. No abnormalities. Continue tracheostomy care, secretion control and airway management. Patient currently with PEG and tube feedings at 60 cc an hour. Nutritional support and aspiration precautions. 01/25. Temp 100.6. More sleepy today. Will get chest xray, blood culture, urinalysis, sputum cultures. Will start on empirical abx. 01/26: Vitals noted, slightly tachycardic. Follow culture work-up, continue supportive care. 01/27: Spiking low-grade temp, negative UA, sputum culture and recent blood cultures also negative. Continue to monitor off antibiotics. Continue supportive care. Pending placement. 01/28: cont to spike low grade temp, negative UA, sputum culture and recent blood cultures also negative. Continue to monitor off antibiotics. will order fpr sinus xry. Continue supportive care. Pending placement. 01/29: Continue to follow clinically, intermittently spiking low-grade temp, all recent culture work is negative, negative UA, normal respiratory jaylan 1 tracheal aspirate. Vitals noted and currently stable. Pending placement 01/30: Clinically unchanged, continue to monitor vitals, continue supportive cares. Pending placement. Discussed plan of care with RN at the bedside. 01/31 - TODATE: cont supportive care, pending placement. monitor vitals carefully. Discussed with family at the bedside. 02/06. Patient afebrile today. Continue trach care. Secretions stable today. Culture data negative so far. Awaiting placement. 02/07. Awaiting placement awaiting family member to evaluate papers. Continue trach care secretions stable. Pending placement 02/09: Intermittent fever, ?drug related, will check cxr and also labs. No new complaints. 02/10: Patient's trach dislodged today. Nevertheless respiratory status is intact attempt to reinsert was unsuccessful will monitor discussed with nursing staff to pay close attention to the patient. Considering that this was not a planned decannulation I will start the patient on continuous pulse ox until full evaluation was done by pulmonary. 02/13/2021 Vital signs stable Unresponsive secondary to anoxic encephalopathy Awaiting placement 02/14/2021 Awaiting placement 02/15/2021 Anoxic encephalopathy Awaiting placement 02/16/2021 Anoxic encephalopathy Awaiting placement 02/17/2021 Anoxic encephalopathy awaiting placement 02/18/2021 Anoxic encephalopathy awaiting placement 02/19/2021 Anoxic encephalopathy awaiting placement 02/20/2021 Anoxic encephalopathy awaiting placement 02/21/2021 Anoxic encephalopathy awaiting placement 02/22/2021 Anoxic encephalopathy awaiting placement 02/23/2021 Anoxic encephalopathy awaiting placement 02/24/2021 Anoxic encephalopathy awaiting placement 02/25/2021 Anoxic encephalopathy awaiting placement Objective - Exam Narrative Exam: Patient with tracheostomy - Constitutional Vitals: Vital Signs - 12hr 02/25/21 02/26/21 23:56 00:28 Temperature 97.9 F Pulse Rate 94 H Respiratory 16 Rate Blood Pressure 126/79 126/79 O2 Sat by Pulse 98 Oximetry General appearance: Present: no acute distress, well-nourished - EENT Eyes: PERRL, EOM intact ENT: hearing intact, clear oral mucosa Ears: bilateral: normal - Neck Neck: supple, normal ROM, other (Trach in place) - Respiratory Respiratory effort: normal Respiratory: bilateral: CTA - Breasts Breasts: normal - Cardiovascular Rhythm: regular Heart Sounds: Present: S1 & S2. Absent: gallop, rub Extremities: no ischemia, pulses intact, No edema, normal color, Full ROM - Gastrointestinal General gastrointestinal: Present: soft, non-tender, non-distended, normal bowel sounds - Genitourinary Female genitourinary: normal - Integumentary Integumentary: clear, warm, dry - Musculoskeletal Musculoskeletal: generalized weakness - Neurologic Neurologic: moves all extremities, other (Unresponsive) - Psychiatric Psychiatric: other (Unresponsive) - Labs CBC & Chem 7: 02/12/21 04:09 02/12/21 04:09 HEART Score - HEART Score Age: < 45 Risk factors: 1-2 risk factors - Critical Actions Critical Actions: >7 pts:50-65% risk of adverse cardiac event. Early invasive measures
--- NOTE | 2021-02-26 06:45 | Progress Note ---
Subjective Date of service: 02/25/21 Principal diagnosis: Eclampsia/HELLP Syndrome, ADOLPH, DIC; s/p , s/p supracervical hyst Interval history: 30 y/o female patient with Eclampsia/help syndrome, s/p emergent section with DIC, hemorrhage, supracervical abdominal hysterectomy, acute respiratory failure , tracheostomy on T-piece with morbid obesity, s/p cardiac arrest 12/08/2019 status post CPR per ACLS, acute hypoxic brain injury Acute kidney injury improved, severe shock requiring pressors, DIC septic shock improved, history of C. difficile colitis on vancomycin. Tracheostomy on T-piece, continues to require 5 L of oxygen. Brief history; 30 year old -[place] female CHE 10/25/20 at 36w5d who presents with seizures in triage on 10/02/20. Pt was not able to provide history but per pt's , she presented to the hospital to return a 24 hour urine specimen for analysis. She then suddenly reported that she did not feel good. She was taken to labor and delivery and shortly after arrival, she began seizing. During this time, a code met was called because the patient became hypoxic. She was then noted to be without a pulse. Chest compressions were started immediately, and the patient was emergently taken to the operating room for delivery of the f etus. Off note, This patient has had care at [facility] with comanagement by [facility] since 11 wks complicated by ADHD, morbid obesity, generalized anxiety disorder, panic attacks, chronic narcotic use, fibromyalgia, GERD, Irritable Bowel Syndrome, Migraines, h/o endometrial ablation and ovarian vein embolization, genital herpes, insomnia, LGA fetus, nausea and vomiting, polyhydramnios, quad screen positive for Down's Syndrome, and previous x 3. She is GBS negative. , Patient tracheostomy on ventilatory support, unable to wean, continue supportive care poor prognosis 11:30: Pt brought to L&D triage for evaluation of possible labor. Pt accompanied by her spouse. Pt spouse poor historian; unable to obtain history- allergies at this time. Pt taken from registration to triage area via WC. Pt unresponsive, actively seizing with snorous respirations. biomathematicianKassy, called and requesting assistance. 11:35: Multiple staff at bedside. Pt 02 sat 67% on nonrebreather, unable to read BP . Yifan Theodore CRNA, at bedside for intubation and assistance with IV insertion. INT attempt by multiple RNs unsuccessful at this time. 11:42: Pt being bagged by SINGLE NEEDLE TUFTING MACHINE OPERATOR, 02% 79%. No pulse palpated, compressions on at this time; bharati young called and Dr. Newberry preparing OR for emergent c/s. 11:44: Continued compressions on stretcher while transporting pt to OR 1. Pt being bagged with jaw thrust manuever in place by KORIN Stringer student. 11:45: Arrival to OR 1. Dr. Newberry and Dr. Portillo present for emergent c/s. Code team arrived for continued care. patient revived and c/s done Patient has been bleeding from C/s site followed by supracervical hysterectomy for severe bleeding, Patient transfused multiple units of PRBC, Patient in DIC. Patient transferred to the ICU Hospital course; 10/03. Patient seen and examined at bedside this morning. Patient is nonresponsive and mechanically ventilated. On pressors. Labs reviewed-has leukocytosis, anemia, thrombocytopenia, ADOLPH and lactic acidosis. Started on IV antibiotics to cover possible sepsis secondary to DIC. Hematology oncology recommendations appreciated-needs additional cryoprecipitate and FFP. Monitor D-dimer, fibrinogen and frequent labs. Nephrology consulted for lactic acidosis and ADOLPH. 10/04. Remains mechanically ventilated. [place] antibiotics. Labs shows improved acidosis - lactic acid 3.5. Hb drop noted. Getting transfused 2 units PRBCs. Platelet count is ~40k. Continue to monitor labs closely. Critical care team on board. 10/05; xray reviewed, concerning for multifocal infilrate, likely underlying Pneumonia, will add ID consult to assist with management of this critically ill patient, start tube feed, closely monitor renal system 10/06: Resumed care, remains on mechanical ventilation. No active bleeding, H&H stable. Continue to monitor CBC and BMP. Continue IV antibiotic for underlying pneumonia. Follow critical care and ID recommendation. 10/07: Remains on mechanical ventilation. No active bleeding, H&H stable. Critical care following, wean off ventilation as tolerated. 10/08: Patient had another cardiac arrest last night. Remains on mechanical ventilation, update family. Continue supportive care -poor prognosis 10/09: Called patient mother and discussed about patient care and management. Answered all question to best of my knowledge and family satisfaction. Patient remains on mechanical ventilation, cardiac arrest x2 so far. Critically sick, poor prognosis 10/10: remains on mechanical ventilation. h/h stable, no active bleeding. monitor CBC/BMP 10/11: WBC trended up with diarrhea, started on vancomycin po. remains on MV, off pressor, tolerating TF 10/12: remains on MV, off pressor, tolerating TF. called family for update but unable to reach, could not leave message as it was full. cont supportive care, wean off vent as tolerated. 10/13/2020; patient is on mechanical ventilation, tolerating tube feeding. Patient has labored breathing. Neuro was consulted and recommend MRI. Patient is on Precedex. Rectal tube in place. 10/14/2020; patient is on mechanical ventilation, Precedex. Patient had fever and blood culture ordered. Patient is on IV vancomycin per ID recommendation. Neuro consulted and recommend MRI. Continue to monitor. Prognosis is guarded. 10/15/2020; patient is on mechanical ventilation, Precedex. Patient had fever and blood culture ordered. Patient is on IV vancomycin per ID recommendation. Neuro consulted and recommend MRI. Continue to monitor. Prognosis is guarded. 2: Remains with C.DIFF and Bactermia, Poor prognosis. No purposeful movement. MRI and EEG discussed with Intensvisit, Continue aggressive BP control. 3: Blood pressure better controlled MRI done 10/15 shows mild improvement in edema. We will continue to monitor mother was at bedside yesterday. Nursing documentation trach and PEG discussed with the mother including goals of care. She is still in denial about the gravity of her daughters her condition which is understandable considering her age. Continue aggressive management at this time. Await for bacteremia to clear by ID before placing PICC line. 10/19: Patient for possible PEG and Trach, ID following, repeat cultures remain negative. Poor prognosis 10/20: Pt noted to DVT and SVT in the RUE, Vascular consult and will also obtain Hematology for possible considering changing in Anticoagulation. CONTINUE TO MONITOR H/H and PLT. Family updated by Intens[employer]it. Heparin gtt started. Will check CBC and BMP 10/21: Continue supporive care, Diarrhea now resolving, But still with persistent Fever, May need repeat CT/AP per ID, still with profused Encephalopathy 10/22: Continue supportive care, weaning, awaiting repeat Imaging. FOLLOW Fever curve. Enoxparin restarted 10/23: Continue supportive care, wean as tolerated. 10/24; Started on CPAP trial, discussed with pulmonary, still with diarrhea. 10/25: Patients seen and examined, no clinical changes, still with diarrhea. ?meaningful recovery. 10/26: Clinically unchanged, continue CPAP trial, Will discuss with Neurology about re-evaluation, ?Need for repeat CT head. ?PRESS considering initial elevated BP, now stable. 10/27; tracheostomy on vent, weaning trials, vital signs noted, poor prognosis 10/28; unable to wean, tracheostomy on vent. Sepsis. Continue current management. Consults and recommendations noted and appreciated 10/30/2020;Patient on T-piece 5 L of oxygen not in acute distress, noncommunicative 11/02/2020; patient on T-piece 5 L of oxygen 11/03/2020; patient's fever slightly improved low-grade, continue current management, remains on T-piece with 5 L of oxygen 11/04/2020; T-max last 24 hours 100.3 F, new cultures negative to date, monitor off antibiotics Patient is off Levophed, blood pressures reasonable level, tracheostomy on T- piece 3 to 5 L nasal cannula oxygen 11/05/2020; tracheostomy on T-piece patient remains on 5 L of nasal cannula oxygen, unresponsive severe hypoxic brain injury I called patient's mother Ms. Pamela Bassett as well as patient's spouse Mr. Danilo Dimas at [phone] unable to reach them Left voicemail on Ms. Pamela Bassettz phone and encouraged him to call back 11/06/2020; I tried to call again today Ms. Pamela Bassett to discuss patient's condition and treatment plan and update consultants recommendations and patient's prognosis., unable to reach her 11/07/20 Will try LTAC/Hospice 11/08/20 Same condition 11/09/2020 Same condition 11/10/2020; family conference was held by case management yesterday 11/09/2020, family decided and agreed for SNF placement 11/11/2020; patient seen and examined, clinically no change tracheostomy on 5 L of nasal cannula oxygen, hemodynamically and clinically stable for discharge To LTAC versus SNF, DC planning per case management 11/12/2020; clinically no change, continue current management, DC planning per case management possible SNF placement 11/13/2020; patient is receiving herpes flareup treatment per ID 11/14/2020; clinically no change, awaiting SNF placement 11/15/2020; clinically no change, tracheostomy on T-piece on 5 L oxygen, awaiting placement 11/16/2020; patient awaiting placement 11/18/2020; abdominal CT scan negative for insulinoma or pancreatic tumor ,clinically no change Awaiting SNF placement 11/19/2020; remains on 4 L of oxygen tracheostomy via T-piece, awaiting SNF pl acement 11/20/2020 Awaiting SNF placement 11/21/2020 Waiting for SNF placement 11/22/2020 Waiting for placement 11/23/2020 Waiting for placement 11/24/2020 through 12/24/2020 Patient waiting for placement 11/27/2020; patient remains hypoglycemic on D10 W IV fluids, CT abdomen negative for insulinoma Remains stable awaiting SNF placement, tracheostomy on 5 L oxygen via T-piece 11/28/2020; awaiting SNF placement 11/29/2020; patient remains unresponsive, tracheostomy on T-piece, on 4 to 5 L of oxygen Wean as tolerated, DC planning per case management possible SNF placement 11/30/2020; awaiting SNF placement 12/02/2020; awaiting placement, stable for discharge 12/03/2020; clinically no change, awaiting placement, tracheostomy on T-piece, anoxic brain injury 12/04/2020 Patient has anoxic encephalopathy with anoxic brain brain injury Awaiting placement 12/05/2020; anoxic brain injury, awaiting placement. 12/06/20; anoxic brain injury. Awaiting placement. 12/07/2020; anoxic brain injury, awaiting placement. 12/09/2020; anoxic brain injury, awaiting placement. 12/10/2020; patient had episodes of fever overnight. CBC, BMP, blood culture, UA and chest x-ray ordered, will follow and manage accordingly. Urinalysis is suggestive of UTI and I put the patient on ceftriaxone, order urine culture. Chest x-ray is normal. 12/11/2020; patient is on ceftriaxone day 2 for UTI. We will continue to follow urine culture. 12/12/2020. Day #3 of Rocephin for UTI. We will continue for 2 more days while she is here. Present UTI. 12/13/2020. Day #4 of Rocephin for UTI. Patient remains on 50% with tracheostomy. Remains unresponsive with evidence of anoxic encephalopathy unable to make needs known. 12/14/2020. Day #5 of Rocephin for UTI completed today. Remains encephalopathic unable to make needs known. Remains on 50% unable to decrease oxygen via tracheostomy. Overall prognosis remains extremely poor. 12/15: Continue to monitor. Stop and monitor antibiotics at this time. Continue to wean oxygen as tolerated. Wean oxygen as tolerated. Case management working on placement. 12/16: Continue supportive care aspiration precautions. Awaiting placement discussion. Monitor fever curve. Prognosis remains poor no evidence of neurological recovery as of today 12/17: Continue supportive care, check labs and chest xray. Still monitor off antibiotics. Monitor Sodium level 12/18: Patient remains with intermittent low grade fever, reviewed EEG from September again, consistent for Ischemic Hypoxic Encephalopathy, patient with decorticating posturing type presentation. Will discuss with data capture clerk to optimize diet so we can discontinue D5. CXR with no abnormality. Discussed extensively with the nursing staff at bedside CXR IMPRESSION: 1. No acute findings. 12/19: No clinical change 12/20: No clinical change, now off abx, monitor, discussed her medications with ou r pharmacist I believe that her posture and rigidity is likely from underlying anoxic encephalopathy. Continue to monitor and await placement decision. Continue aggressive suctioning. Plan discussed in detail with the nursing staff 12/21: Continue supportive care. Will give 500 cc bolus of fluid today to replace insensible losses. Tachycardia appears to be improving. Blood pressure precludes adjusting cardiac meds. Still awaiting placement from case management. Plan discussed in detail with the nursing staff 12/22. Continue support supportive care. Tracheostomy and PEG in place. Remains nonresponsive. Awaiting placement. 12/23. Continue support supportive care. Tracheostomy and PEG in place. Remains nonresponsive. Awaiting placement. Remains tachycardic. Decrease dose of lasix. Will try low dose metoprolol. Monitor BP closely 12/24. Continue support supportive care. Tracheostomy and PEG in place. Remains nonresponsive. Awaiting placement. Heart rate slightly better. Continue to monitor BP closely 12/25. Continue support supportive care. Tracheostomy and PEG in place. Remains nonresponsive. Awaiting placement. 12/26. Continue support supportive care. Tracheostomy and PEG in place. Remains nonresponsive. Awaiting placement 12/27. Continue support supportive care. Tracheostomy and PEG in place. Remains nonresponsive. Awaiting placement 12/28. Had fever yesterday. Blood culture drawn. UA - UTI - started on antibiotics. Now tracheal aspirate is growing GN rods. 12/29: Continue IV antibiotics, continue supportive care. Since admission patient has shown minimal or no chance of neurological recovery. Need 24/7 assistance. Currently on trach and PEG, nonverbal. Waiting on SNF placement. Discussed with shoe parts caser today. 12/30: Continue IV antibiotics for UTI, continue supportive care. Pending placement 12/31: continue supportive care. continue supportive care. Pending placement 01/01: continue supportive care. Pending placement. cont Iv abx for UTI till 01/04 01/02: Continue supportive care, pending placement. Sodium level slightly elevated, will start hypotonic fluid. Continue antibiotics till 01/04 01/03; cont hypotonic fluid, increase free water with TF for hypernatremia, follow BMP. cont supportive care. pending placement. cont cefepime. recx blood 01/04: resolved hyponatremia, cont supportive care, pending placement. Last day of supplement today. 01/05: Continue supportive care, pending placement. Monitor H&H and fever curve off antibiotic. 01/06; monitor off abx, suction as needed, Continue supportive care, pending placement. 01/07: Discharge pending on placement, vitals stable. Continue supportive care 01/08: Discharge pending on placement, vitals stable. Continue supportive care. stop lasix, increase metoprolol to 25mg BID for ST. 01/09 patient resting with eyes closed. Opens eyes to tactile stimulus, has a blink reflex, does not follow simple commands, has a T-collar / G-tube Lab results reviewed, low-grade fever, 01/10 Eyes open, does not follow simple commands, no acute events overnight 01/11 no acute events overnight, Waiting for placement 01/12 No acute events overnight. Patient awaiting for placement 01/13. No new issues. Awaiting placement 01/14. No new issues. Awaiting placement. 01/15. No new issues. Awaiting placement. 01/16. No new issues. Patient remain stable. Awaiting placement. Check maintenance labs. 01/17. Routine maintenance labs were ordered and are still pending. Await placement. 01/18. Patient with low-grade fever past 24-48 hrs. WBC within normal limits. C heck chest x-ray, urinalysis and consider blood cultures. Continue tracheostomy care, secretion control and airway management. Patient currently with PEG and tube feedings at 60 cc an hour. Nutritional support and aspiration precautions. 01/19. Temperature 100.7 overnight. Continue to monitor closely. Continue tracheostomy care, secretion control and airway management. Patient currently with PEG and tube feedings at 60 cc an hour. Nutritional support and aspiration precautions. 01/20. Continue to monitor closely. Continue tracheostomy care, secretion control and airway management. Patient currently with PEG and tube feedings at 60 cc an hour. Nutritional support and aspiration precautions. 01/21. Afebrile overnight. Continue to monitor closely. Continue tracheostomy care, secretion control and airway management. Patient currently with PEG and tube feedings at 60 cc an hour. Nutritional support and aspiration precautions. 01/22. Continue to monitor closely. Continue tracheostomy care, secretion control and airway management. Patient currently with PEG and tube feedings at 60 cc an hour. Nutritional support and aspiration precautions. 01/23. Continue tracheostomy care, secretion control and airway management. Patient currently with PEG and tube feedings at 60 cc an hour. Nutritional support and aspiration precautions. Will get routine labs tomorrow. 01/24. Labs reviewed. No abnormalities. Continue tracheostomy care, secretion control and airway management. Patient currently with PEG and tube feedings at 60 cc an hour. Nutritional support and aspiration precautions. 01/25. Temp 100.6. More sleepy today. Will get chest xray, blood culture, urinalysis, sputum cultures. Will start on empirical abx. 01/26: Vitals noted, slightly tachycardic. Follow culture work-up, continue supportive care. 01/27: Spiking low-grade temp, negative UA, sputum culture and recent blood cultures also negative. Continue to monitor off antibiotics. Continue supportive care. Pending placement. 01/28: cont to spike low grade temp, negative UA, sputum culture and recent blood cultures also negative. Continue to monitor off antibiotics. will order fpr sinus xry. Continue supportive care. Pending placement. 01/29: Continue to follow clinically, intermittently spiking low-grade temp, all recent culture work is negative, negative UA, normal respiratory jaylan 1 tracheal aspirate. Vitals noted and currently stable. Pending placement 01/30: Clinically unchanged, continue to monitor vitals, continue supportive cares. Pending placement. Discussed plan of care with RN at the bedside. 01/31 - TODATE: cont supportive care, pending placement. monitor vitals c arefully. Discussed with family at the bedside. 02/06. Patient afebrile today. Continue trach care. Secretions stable today. Culture data negative so far. Awaiting placement. 02/07. Awaiting placement awaiting family member to evaluate papers. Continue trach care secretions stable. Pending placement 02/09: Intermittent fever, ?drug related, will check cxr and also labs. No new complaints. 02/10: Patient's trach dislodged today. Nevertheless respiratory status is intact attempt to reinsert was unsuccessful will monitor discussed with nursing staff to pay close attention to the patient. Considering that this was not a planned decannulation I will start the patient on continuous pulse ox until full evaluation was done by pulmonary. 02/13/2021 Vital signs stable Unresponsive secondary to anoxic encephalopathy Awaiting placement 02/14/2021 Awaiting placement 02/15/2021 Anoxic encephalopathy Awaiting placement 02/16/2021 Anoxic encephalopathy Awaiting placement 02/17/2021 Anoxic encephalopathy awaiting placement 02/18/2021 Anoxic encephalopathy awaiting placement 02/19/2021 Anoxic encephalopathy awaiting placement 02/20/2021 Anoxic encephalopathy awaiting placement 02/21/2021 Anoxic encephalopathy awaiting placement 02/22/2021 Anoxic encephalopathy awaiting placement 02/23/2021 Anoxic encephalopathy awaiting placement 02/24/2021 Anoxic encephalopathy awaiting placement 02/25/2021 Anoxic encephalopathy waiting for placement Objective - Exam Narrative Exam: Patient with tracheostomy - Constitutional Vitals: Vital Signs - 12hr 02/25/21 02/26/21 02/26/21 23:56 00:28 06:11 Temperature 97.9 F 97.6 F Pulse Rate 94 H 113 H Respiratory 16 22 Rate Blood Pressure 126/79 126/79 130/85 O2 Sat by Pulse 98 97 Oximetry General appearance: Present: no acute distress, well-nourished - EENT Eyes: PERRL, EOM intact ENT: other Ears: bilateral: normal - Neck Neck: other (Trach in place) - Respiratory Respiratory effort: normal Respiratory: bilateral: CTA - Breasts Breasts: normal - Cardiovascular Heart rate: 78 Rhythm: regular Heart Sounds: Present: S1 & S2. Absent: gallop, rub Extremities: pulses intact, No edema, normal color, Full ROM - Gastrointestinal General gastrointestinal: Present: soft, non-tender, non-distended, normal bowel sounds - Genitourinary Female genitourinary: normal - Integumentary Integumentary: clear, warm, dry - Musculoskeletal Musculoskeletal: 1, strength equal bilaterally - Neurologic Neurologic: moves all extremities, other (Unresponsive) - Psychiatric Psychiatric: other (Unresponsive) - Labs CBC & Chem 7: 02/12/21 04:09 02/12/21 04:09 HEART Score - HEART Score Age: < 45 Risk factors: 1-2 risk factors - Critical Actions Critical Actions: >7 pts:50-65% risk of adverse cardiac event. Early invasive measures
[2021-02-26] MEDS: ENOXAPARIN 40 MG/0.4 ML INJ SUB-Q SCH (09:03)
[2021-02-26] MEDS: FAMOTIDINE 20 MG TAB PO SCH ×2 (09:04→21:30)
[2021-02-27] MEDS: METOPROLOL TARTRATE 25 MG TAB PO SCH ×2 (09:39→23:18)
[2021-02-27] MEDS: FAMOTIDINE 20 MG TAB PO SCH ×2 (09:39→22:28)
[2021-02-27] MEDS: ENOXAPARIN 40 MG/0.4 ML INJ SUB-Q SCH (09:39)
--- NOTE | 2021-02-27 11:37 | Progress Note ---
Assessment and Plan - Patient Problems (1) Acute respiratory failure Current Visit: Yes Status: Acute (2) ADOLPH (acute kidney injury) Current Visit: Yes Status: Acute (3) Encephalopathy Current Visit: Yes Status: Acute (4) Preeclampsia Current Visit: Yes Status: Acute Subjective Principal diagnosis: Eclampsia/HELLP Syndrome, ADOLPH, DIC; s/p , s/p supracervical hyst Interval history: eyes opens. in no distress Objective Vital Signs - 12hr 02/27/21 02/27/21 05:43 09:39 Temperature 98.9 F Pulse Rate 104 H 108 H Respiratory 22 Rate Blood Pressure 116/74 127/78 O2 Sat by Pulse 99 Oximetry Constitutional: no acute distress, other (doesnt follow commands but gets agitated if wet or uncomfortable, eyes open decanulated) Eyes: non-icteric ENT: oropharynx moist Neck: other (large in cirumference) Effort: normal Ascultation: Bilateral: clear, diminished breath sounds, rhonchi, other (coarse BS bilaterally) Percussion: Bilateral: not dull Cardiovascular: regular rate and rhythm, other (no mrg) Gastrointestinal: normoactive bowel sounds, soft Extremities: no cyanosis, pink and warm Neurologic: other (eyes open; upper extremity contractures; not following commands) Psychiatric: mood appropriate, affect normal CBC and BMP: 02/12/21 04:09 02/12/21 04:09 ABG, PT/INR, D-dimer: ABG ABG pH 7.459 pH Units (7.350-7.450) H 10/26/20 10:30 POC ABG pCO2 20.7 mmHg (32.0-48.0) L 10/13/20 07:18 ABG pCO2 32.4 mm Hg 10/26/20 10:30 POC ABG pO2 137.9 mmHg (83-108) H 10/13/20 07:18 ABG pO2 112.2 mm Hg (80.0-90.0) H 10/26/20 10:30 POC ABG HCO3 14.8 10/13/20 07:18 ABG O2 Saturation 98.2 % (95.0-99.0) 10/26/20 10:30 PT/INR, D-dimer PT 13.6 Sec. (12.2-14.9) 10/21/20 13:54 INR 1.06 (0.87-1.13) 10/21/20 13:54 D-Dimer 1974.47 ng/mlDDU (0-234) H 11/11/20 13:50 Abnormal lab findings: Abnormal Labs 10/02/20 10/02/20 10/02/20 12:03 12:18 12:18 WBC 14.9 H RBC Hgb 9.1 L Hct MCV MCH 22 L MCHC 28 L RDW 17.6 H Plt Count 102 L Lymph % (Auto) [place] % (Auto) Lymph # (Auto) [place] # (Auto) Baso # (Auto) Seg Neutrophils % Seg Neuts % (Manual) 36.0 L Lymphocytes % (Manual) 49.0 H Monocytes % (Manual) Nucleated RBC % 6.0 H Seg Neutrophils # Seg Neutrophils # Man Lymphocytes # (Manual) 7.3 H Monocytes # (Manual) PT INR APTT Fibrinogen D-Dimer ABG pH POC ABG pCO2 POC ABG pO2 ABG pO2 ABG HCO3 ABG Base Excess ABG Hemoglobin ABG Oxyhemoglobin ABG Sodium ABG Potassium ABG Chloride ABG Glucose VBG pH Oxyhemoglobin Carboxyhemoglobin Sodium 134 L Potassium Chloride Carbon Dioxide 12 L BUN 6 L Creatinine Glucose 390 H POC Glucose 451 H Random Insulin C-Peptide Lactic Acid Calcium Ionized Calcium Phosphorus Magnesium AST 135 H ALT 85 H Alkaline Phosphatase 172 H Lactate Dehydrogenase 641 H NT-Pro-B Natriuret Pep Total Protein 5.4 L Albumin 2.3 L Arterial Blood Glucose Arterial Blood Ionized Calcium Urine pH Urine WBC (Auto) U Epithel Cells (Auto) Vancomycin Trough Phenytoin Crossmatch 10/02/20 10/02/20 10/02/20 12:50 13:05 13:05 WBC 38.6 H RBC Hgb 8.9 L Hct 29.0 L MCV 73 L MCH 22 L MCHC RDW 17.2 H Plt Count Lymph % (Auto) [place] % (Auto) Lymph # (Auto) [place] # (Auto) Baso # (Auto) Seg Neutrophils % Seg Neuts % (Manual) Lymphocytes % (Manual) Monocytes % (Manual) Nucleated RBC % 2.0 H Seg Neutrophils # Seg Neutrophils # Man 20.1 H Lymphocytes # (Manual) 10.4 H Monocytes # (Manual) 2.3 H PT INR APTT Fibrinogen D-Dimer ABG pH POC ABG pCO2 POC ABG pO2 ABG pO2 ABG HCO3 ABG Base Excess ABG Hemoglobin ABG Oxyhemoglobin ABG Sodium ABG Potassium ABG Chloride ABG Glucose VBG pH Oxyhemoglobin Carboxyhemoglobin Sodium Potassium Chloride Carbon Dioxide BUN Creatinine Glucose POC Glucose Random Insulin C-Peptide Lactic Acid Calcium Ionized Calcium Phosphorus Magnesium AST 184 H ALT 113 H Alkaline Phosphatase Lactate Dehydrogenase 769 H NT-Pro-B Natriuret Pep Total Protein Albumin Arterial Blood Glucose Arterial Blood Ionized Calcium Urine pH Urine WBC (Auto) U Epithel Cells (Auto) Vancomycin Trough Phenytoin Crossmatch See Detail 10/02/20 10/02/20 10/02/20 16:25 16:35 16:35 WBC RBC Hgb Hct MCV MCH MCHC RDW Plt Count Lymph % (Auto) [place] % (Auto) Lymph # (Auto) [place] # (Auto) Baso # (Auto) Seg Neutrophils % Seg Neuts % (Manual) Lymphocytes % (Manual) Monocytes % (Manual) Nucleated RBC % Seg Neutrophils # Seg Neutrophils # Man Lymphocytes # (Manual) Monocytes # (Manual) PT INR APTT Fibrinogen D-Dimer ABG pH 7.031 L* POC ABG pCO2 POC ABG pO2 ABG pO2 116.8 H ABG HCO3 12.7 L ABG Base Excess -16.9 L ABG Hemoglobin 7.8 L ABG Oxyhemoglobin ABG Sodium ABG Potassium ABG Chloride ABG Glucose VBG pH Oxyhemoglobin 94.9 L Carboxyhemoglobin Sodium Potassium Chloride Carbon Dioxide BUN Creatinine Glucose 403 H POC Glucose Random Insulin C-Peptide Lactic Acid 11.40 H* Calcium 6.3 L D Ionized Calcium Phosphorus Magnesium AST 70 H ALT Alkaline Phosphatase Lactate Dehydrogenase NT-Pro-B Natriuret Pep Total Protein 1.9 L D Albumin 1.2 L Arterial Blood Glucose Arterial Blood Ionized Calcium Urine pH Urine WBC (Auto) U Epithel Cells (Auto) Vancomycin Trough Phenytoin Crossmatch 10/02/20 10/02/20 10/02/20 18:18 18:18 22:30 WBC 11.5 H RBC 2.06 L Hgb 5.5 L* D Hct 17.3 L* D MCV MCH 27 L MCHC RDW 19.5 H Plt Count 60 L Lymph % (Auto) [place] % (Auto) Lymph # (Auto) [place] # (Auto) Baso # (Auto) Seg Neutrophils % Seg Neuts % (Manual) Lymphocytes % (Manual) 8.0 L Monocytes % (Manual) 8.0 H Nucleated RBC % 8.0 H Seg Neutrophils # Seg Neutrophils # Man Lymphocytes # (Manual) 0.9 L Monocytes # (Manual) 0.9 H PT 37.1 H INR 3.71 H APTT 135.8 H* Fibrinogen D-Dimer ABG pH 7.067 L* POC ABG pCO2 POC ABG pO2 ABG pO2 183.0 H ABG HCO3 14.1 L ABG Base Excess -15.1 L ABG Hemoglobin 7.7 L ABG Oxyhemoglobin ABG Sodium ABG Potassium ABG Chloride ABG Glucose VBG pH Oxyhemoglobin Carboxyhemoglobin Sodium Potassium Chloride Carbon Dioxide BUN Creatinine Glucose POC Glucose Random Insulin C-Peptide Lactic Acid Calcium Ionized Calcium Phosphorus Magnesium AST ALT Alkaline Phosphatase Lactate Dehydrogenase NT-Pro-B Natriuret Pep Total Protein Albumin Arterial Blood Glucose Arterial Blood Ionized Calcium Urine pH Urine WBC (Auto) U Epithel Cells (Auto) Vancomycin Trough Phenytoin Crossmatch 10/02/20 10/02/20 10/03/20 Unknown Unknown 00:01 WBC RBC Hgb Hct MCV MCH MCHC RDW Plt Count Lymph % (Auto) [place] % (Auto) Lymph # (Auto) [place] # (Auto) Baso # (Auto) Seg Neutrophils % Seg Neuts % (Manual) Lymphocytes % (Manual) Monocytes % (Manual) Nucleated RBC % Seg Neutrophils # Seg Neutrophils # Man Lymphocytes # (Manual) Monocytes # (Manual) PT 61.1 H INR 6.92 H* APTT 158.7 H* Fibrinogen < 60 L* D-Dimer > 92626 H ABG pH POC ABG pCO2 POC ABG pO2 ABG pO2 ABG HCO3 ABG Base Excess ABG Hemoglobin ABG Oxyhemoglobin ABG Sodium ABG Potassium ABG Chloride ABG Glucose VBG pH 6.949 L* Oxyhemoglobin Carboxyhemoglobin Sodium Potassium Chloride Carbon Dioxide BUN Creatinine Glucose POC Glucose 196 H Random Insulin C-Peptide Lactic Acid Calcium Ionized Calcium Phosphorus Magnesium AST ALT Alkaline Phosphatase Lactate Dehydrogenase NT-Pro-B Natriuret Pep Total Protein Albumin Arterial Blood Glucose Arterial Blood Ionized Calcium Urine pH Urine WBC (Auto) U Epithel Cells (Auto) Vancomycin Trough Phenytoin Crossmatch 10/03/20 10/03/20 10/03/20 00:40 00:40 00:40 WBC RBC Hgb Hct MCV MCH MCHC RDW Plt Count Lymph % (Auto) [place] % (Auto) Lymph # (Auto) [place] # (Auto) Baso # (Auto) Seg Neutrophils % Seg Neuts % (Manual) Lymphocytes % (Manual) Monocytes % (Manual) Nucleated RBC % Seg Neutrophils # Seg Neutrophils # Man Lymphocytes # (Manual) Monocytes # (Manual) PT 15.1 H INR 1.21 H APTT Fibrinogen D-Dimer ABG pH POC ABG pCO2 POC ABG pO2 ABG pO2 ABG HCO3 ABG Base Excess ABG Hemoglobin ABG Oxyhemoglobin ABG Sodium ABG Potassium ABG Chloride ABG Glucose VBG pH Oxyhemoglobin Carboxyhemoglobin Sodium 136 L Potassium Chloride Carbon Dioxide BUN Creatinine 1.6 H D Glucose 106 H POC Glucose Random Insulin C-Peptide Lactic Acid 5.60 H* Calcium 6.5 L Ionized Calcium Phosphorus Magnesium AST 232 H ALT 104 H Alkaline Phosphatase Lactate Dehydrogenase NT-Pro-B Natriuret Pep Total Protein 3.9 L D Albumin 2.4 L Arterial Blood Glucose Arterial Blood Ionized Calcium Urine pH Urine WBC (Auto) U Epithel Cells (Auto) Vancomycin Trough Phenytoin Crossmatch 10/03/20 10/03/20 10/03/20 02:08 02:08 02:08 WBC 17.6 H RBC 3.27 L Hgb 9.9 L D Hct 29.9 L D MCV MCH MCHC RDW 16.5 H Plt Count 75 L Lymph % (Auto) [place] % (Auto) Lymph # (Auto) [place] # (Auto) Baso # (Auto) Seg Neutrophils % Seg Neuts % (Manual) 76.0 H Lymphocytes % (Manual) Monocytes % (Manual) Nucleated RBC % 8.0 H Seg Neutrophils # Seg Neutrophils # Man 13.4 H Lymphocytes # (Manual) Monocytes # (Manual) PT INR APTT Fibrinogen D-Dimer ABG pH POC ABG pCO2 POC ABG pO2 ABG pO2 ABG HCO3 ABG Base Excess ABG Hemoglobin ABG Oxyhemoglobin ABG Sodium ABG Potassium ABG Chloride ABG Glucose VBG pH Oxyhemoglobin Carboxyhemoglobin Sodium Potassium Chloride Carbon Dioxide 19 L BUN Creatinine 1.4 H Glucose 306 H POC Glucose Random Insulin C-Peptide Lactic Acid 10.50 H* Calcium 6.4 L Ionized Calcium Phosphorus Magnesium AST ALT Alkaline Phosphatase Lactate Dehydrogenase NT-Pro-B Natriuret Pep Total Protein Albumin Arterial Blood Glucose Arterial Blood Ionized Calcium Urine pH Urine WBC (Auto) U Epithel Cells (Auto) Vancomycin Trough Phenytoin Crossmatch 10/03/20 10/03/20 10/03/20 02:42 03:59 05:31 WBC RBC Hgb Hct MCV MCH MCHC RDW Plt Count Lymph % (Auto) [place] % (Auto) Lymph # (Auto) [place] # (Auto) Baso # (Auto) Seg Neutrophils % Seg Neuts % (Manual) Lymphocytes % (Manual) Monocytes % (Manual) Nucleated RBC % Seg Neutrophils # Seg Neutrophils # Man Lymphocytes # (Manual) Monocytes # (Manual) PT INR APTT Fibrinogen D-Dimer ABG pH 7.144 L POC ABG pCO2 54.4 H POC ABG pO2 ABG pO2 ABG HCO3 ABG Base Excess ABG Hemoglobin 10.0 L ABG Oxyhemoglobin ABG Sodium ABG Potassium ABG Chloride 108.0 H ABG Glucose 306 H VBG pH Oxyhemoglobin Carboxyhemoglobin Sodium Potassium Chloride Carbon Dioxide BUN Creatinine Glucose POC Glucose 209 H Random Insulin C-Peptide Lactic Acid 9.20 H* Calcium Ionized Calcium Phosphorus Magnesium AST ALT Alkaline Phosphatase Lactate Dehydrogenase NT-Pro-B Natriuret Pep Total Protein Albumin Arterial Blood Glucose 306 H Arterial Blood Ionized Calcium 3.7 L Urine pH Urine WBC (Auto) U Epithel Cells (Auto) Vancomycin Trough Phenytoin Crossmatch 10/03/20 10/03/20 10/03/20 09:00 09:00 09:00 WBC 27.4 H RBC 2.84 L Hgb 8.5 L Hct 25.1 L MCV MCH MCHC RDW 16.1 H Plt Count 72 L Lymph % (Auto) [place] % (Auto) Lymph # (Auto) [place] # (Auto) Baso # (Auto) Seg Neutrophils % Seg Neuts % (Manual) Lymphocytes % (Manual) 11.0 L Monocytes % (Manual) Nucleated RBC % 3.0 H Seg Neutrophils # Seg Neutrophils # Man 18.4 H Lymphocytes # (Manual) Monocytes # (Manual) 1.9 H PT INR APTT Fibrinogen D-Dimer ABG pH POC ABG pCO2 POC ABG pO2 ABG pO2 ABG HCO3 ABG Base Excess ABG Hemoglobin ABG Oxyhemoglobin ABG Sodium ABG Potassium ABG Chloride ABG Glucose VBG pH Oxyhemoglobin Carboxyhemoglobin Sodium Potassium Chloride Carbon Dioxide BUN Creatinine 1.7 H Glucose 216 H POC Glucose Random Insulin C-Peptide Lactic Acid 9.20 H* Calcium 6.3 L Ionized Calcium Phosphorus Magnesium AST 331 H ALT 171 H Alkaline Phosphatase Lactate Dehydrogenase NT-Pro-B Natriuret Pep Total Protein 3.7 L Albumin 1.9 L Arterial Blood Glucose Arterial Blood Ionized Calcium Urine pH Urine WBC (Auto) U Epithel Cells (Auto) Vancomycin Trough Phenytoin Crossmatch 10/03/20 10/03/20 10/03/20 11:20 11:46 11:50 WBC 28.7 H RBC 2.67 L Hgb 8.0 L Hct 23.7 L MCV MCH MCHC RDW 16.6 H Plt Count 76 L Lymph % (Auto) [place] % (Auto) Lymph # (Auto) [place] # (Auto) Baso # (Auto) Seg Neutrophils % Seg Neuts % (Manual) Lymphocytes % (Manual) Monocytes % (Manual) Nucleated RBC % Seg Neutrophils # Seg Neutrophils # Man Lymphocytes # (Manual) Monocytes # (Manual) PT INR APTT Fibrinogen D-Dimer ABG pH POC ABG pCO2 POC ABG pO2 ABG pO2 ABG HCO3 ABG Base Excess ABG Hemoglobin ABG Oxyhemoglobin ABG Sodium ABG Potassium ABG Chloride ABG Glucose VBG pH Oxyhemoglobin Carboxyhemoglobin Sodium Potassium Chloride Carbon Dioxide BUN Creatinine Glucose POC Glucose 125 H Random Insulin C-Peptide Lactic Acid 8.00 H* Calcium Ionized Calcium Phosphorus Magnesium AST ALT Alkaline Phosphatase Lactate Dehydrogenase NT-Pro-B Natriuret Pep Total Protein Albumin Arterial Blood Glucose Arterial Blood Ionized Calcium Urine pH Urine WBC (Auto) U Epithel Cells (Auto) Vancomycin Trough Phenytoin Crossmatch 10/03/20 10/04/20 10/04/20 11:50 00:40 00:40 WBC RBC Hgb 6.8 L Hct 19.4 L* MCV MCH MCHC RDW Plt Count 49 L Lymph % (Auto) [place] % (Auto) Lymph # (Auto) [place] # (Auto) Baso # (Auto) Seg Neutrophils % Seg Neuts % (Manual) Lymphocytes % (Manual) Monocytes % (Manual) Nucleated RBC % Seg Neutrophils # Seg Neutrophils # Man Lymphocytes # (Manual) Monocytes # (Manual) PT INR APTT Fibrinogen D-Dimer ABG pH 7.244 L POC ABG pCO2 POC ABG pO2 ABG pO2 ABG HCO3 ABG Base Excess -4.5 L ABG Hemoglobin 7.3 L ABG Oxyhemoglobin ABG Sodium ABG Potassium ABG Chloride ABG Glucose VBG pH Oxyhemoglobin Carboxyhemoglobin Sodium Potassium Chloride Carbon Dioxide BUN Creatinine Glucose POC Glucose Random Insulin C-Peptide Lactic Acid Calcium Ionized Calcium Phosphorus Magnesium AST ALT Alkaline Phosphatase Lactate Dehydrogenase NT-Pro-B Natriuret Pep Total Protein Albumin Arterial Blood Glucose Arterial Blood Ionized Calcium Urine pH Urine WBC (Auto) U Epithel Cells (Auto) Vancomycin Trough Phenytoin Crossmatch 10/04/20 10/04/20 10/04/20 03:53 10:00 10:00 WBC 14.6 H RBC 2.57 L Hgb 7.6 L Hct 22.5 L MCV MCH MCHC RDW 15.8 H Plt Count 38 L Lymph % (Auto) 7.7 L [place] % (Auto) Lymph # (Auto) 1.1 L [place] # (Auto) 0.9 H Baso # (Auto) Seg Neutrophils % 85.6 H Seg Neuts % (Manual) Lymphocytes % (Manual) Monocytes % (Manual) Nucleated RBC % Seg Neutrophils # 12.5 H Seg Neutrophils # Man Lymphocytes # (Manual) Monocytes # (Manual) PT INR APTT Fibrinogen D-Dimer ABG pH POC ABG pCO2 POC ABG pO2 110.6 H ABG pO2 ABG HCO3 ABG Base Excess ABG Hemoglobin 6.7 L ABG Oxyhemoglobin ABG Sodium 132.0 L ABG Potassium ABG Chloride ABG Glucose 111 H VBG pH Oxyhemoglobin Carboxyhemoglobin Sodium 134 L D Potassium Chloride 97.6 L Carbon Dioxide BUN Creatinine 1.7 H Glucose POC Glucose Random Insulin C-Peptide Lactic Acid Calcium 6.3 L Ionized Calcium Phosphorus Magnesium AST 203 H ALT 81 H Alkaline Phosphatase Lactate Dehydrogenase NT-Pro-B Natriuret Pep Total Protein 3.9 L Albumin 2.3 L Arterial Blood Glucose 111 H Arterial Blood Ionized Calcium 3.5 L Urine pH Urine WBC (Auto) U Epithel Cells (Auto) Vancomycin Trough Phenytoin Crossmatch 10/04/20 10/04/20 10/04/20 10:00 10:00 10:14 WBC RBC Hgb Hct MCV MCH MCHC RDW Plt Count Lymph % (Auto) [place] % (Auto) Lymph # (Auto) [place] # (Auto) Baso # (Auto) Seg Neutrophils % Seg Neuts % (Manual) Lymphocytes % (Manual) Monocytes % (Manual) Nucleated RBC % Seg Neutrophils # Seg Neutrophils # Man Lymphocytes # (Manual) Monocytes # (Manual) PT INR APTT Fibrinogen D-Dimer > 68105 H ABG pH POC ABG pCO2 POC ABG pO2 ABG pO2 ABG HCO3 ABG Base Excess ABG Hemoglobin ABG Oxyhemoglobin ABG Sodium ABG Potassium ABG Chloride ABG Glucose VBG pH Oxyhemoglobin Carboxyhemoglobin Sodium Potassium Chloride Carbon Dioxide BUN Creatinine Glucose POC Glucose Random Insulin C-Peptide Lactic Acid 3.90 H* Calcium Ionized Calcium Phosphorus Magnesium AST ALT Alkaline Phosphatase Lactate Dehydrogenase NT-Pro-B Natriuret Pep 2788 H Total Protein Albumin Arterial Blood Glucose Arterial Blood Ionized Calcium Urine pH Urine WBC (Auto) U Epithel Cells (Auto) Vancomycin Trough Phenytoin Crossmatch 10/04/20 10/04/20 10/04/20 14:00 14:00 18:00 WBC 15.7 H RBC 3.17 L Hgb 9.3 L 9.6 L Hct 27.2 L 28.0 L MCV MCH MCHC RDW 16.9 H Plt Count 41 L Lymph % (Auto) 8.6 L [place] % (Auto) Lymph # (Auto) [place] # (Auto) 0.9 H Baso # (Auto) Seg Neutrophils % 85.4 H Seg Neuts % (Manual) Lymphocytes % (Manual) Monocytes % (Manual) Nucleated RBC % Seg Neutrophils # 13.4 H Seg Neutrophils # Man Lymphocytes # (Manual) Monocytes # (Manual) PT INR APTT Fibrinogen D-Dimer ABG pH POC ABG pCO2 POC ABG pO2 ABG pO2 ABG HCO3 ABG Base Excess ABG Hemoglobin ABG Oxyhemoglobin ABG Sodium ABG Potassium ABG Chloride ABG Glucose VBG pH Oxyhemoglobin Carboxyhemoglobin Sodium 133 L Potassium Chloride 96.4 L Carbon Dioxide BUN 18 H Creatinine 1.7 H Glucose POC Glucose Random Insulin C-Peptide Lactic Acid Calcium 6.3 L Ionized Calcium Phosphorus Magnesium AST ALT Alkaline Phosphatase Lactate Dehydrogenase NT-Pro-B Natriuret Pep Total Protein Albumin Arterial Blood Glucose Arterial Blood Ionized Calcium Urine pH Urine WBC (Auto) U Epithel Cells (Auto) Vancomycin Trough Phenytoin Crossmatch 10/04/20 10/04/20 10/05/20 18:00 22:00 05:00 WBC 17.6 H RBC 3.34 L Hgb 9.9 L Hct 29.4 L MCV MCH MCHC RDW 17.1 H Plt Count 56 L Lymph % (Auto) 8.5 L [place] % (Auto) Lymph # (Auto) [place] # (Auto) 1.0 H Baso # (Auto) Seg Neutrophils % 85.1 H Seg Neuts % (Manual) Lymphocytes % (Manual) Monocytes % (Manual) Nucleated RBC % Seg Neutrophils # 15.0 H Seg Neutrophils # Man Lymphocytes # (Manual) Monocytes # (Manual) PT INR APTT Fibrinogen D-Dimer ABG pH POC ABG pCO2 POC ABG pO2 ABG pO2 ABG HCO3 ABG Base Excess ABG Hemoglobin ABG Oxyhemoglobin ABG Sodium ABG Potassium ABG Chloride ABG Glucose VBG pH Oxyhemoglobin Carboxyhemoglobin Sodium 136 L Potassium Chloride Carbon Dioxide BUN 18 H Creatinine 1.7 H Glucose POC Glucose Random Insulin C-Peptide Lactic Acid 2.30 H* Calcium 6.6 L Ionized Calcium Phosphorus Magnesium AST ALT Alkaline Phosphatase Lactate Dehydrogenase NT-Pro-B Natriuret Pep Total Protein Albumin Arterial Blood Glucose Arterial Blood Ionized Calcium Urine pH Urine WBC (Auto) U Epithel Cells (Auto) Vancomycin Trough Phenytoin Crossmatch 10/05/20 10/05/20 10/05/20 05:00 05:00 05:03 WBC RBC Hgb Hct MCV MCH MCHC RDW Plt Count Lymph % (Auto) [place] % (Auto) Lymph # (Auto) [place] # (Auto) Baso # (Auto) Seg Neutrophils % Seg Neuts % (Manual) Lymphocytes % (Manual) Monocytes % (Manual) Nucleated RBC % Seg Neutrophils # Seg Neutrophils # Man Lymphocytes # (Manual) Monocytes # (Manual) PT INR APTT Fibrinogen D-Dimer ABG pH 7.458 H POC ABG pCO2 POC ABG pO2 ABG pO2 74.3 L ABG HCO3 27.5 H ABG Base Excess 3.4 H ABG Hemoglobin 10.0 L ABG Oxyhemoglobin ABG Sodium ABG Potassium ABG Chloride ABG Glucose VBG pH Oxyhemoglobin 94.9 L Carboxyhemoglobin Sodium Potassium Chloride Carbon Dioxide BUN 19 H Creatinine 1.8 H Glucose POC Glucose Random Insulin C-Peptide Lactic Acid Calcium 6.8 L Ionized Calcium 3.9 L Phosphorus Magnesium AST 225 H ALT 85 H Alkaline Phosphatase Lactate Dehydrogenase NT-Pro-B Natriuret Pep Total Protein 4.5 L Albumin 2.7 L Arterial Blood Glucose Arterial Blood Ionized Calcium Urine pH Urine WBC (Auto) U Epithel Cells (Auto) Vancomycin Trough Phenytoin Crossmatch 10/05/20 10/05/20 10/05/20 10:10 15:00 19:40 WBC RBC Hgb Hct MCV MCH MCHC RDW Plt Count Lymph % (Auto) [place] % (Auto) Lymph # (Auto) [place] # (Auto) Baso # (Auto) Seg Neutrophils % Seg Neuts % (Manual) Lymphocytes % (Manual) Monocytes % (Manual) Nucleated RBC % Seg Neutrophils # Seg Neutrophils # Man Lymphocytes # (Manual) Monocytes # (Manual) PT INR APTT Fibrinogen D-Dimer ABG pH POC ABG pCO2 POC ABG pO2 ABG pO2 ABG HCO3 ABG Base Excess ABG Hemoglobin ABG Oxyhemoglobin ABG Sodium ABG Potassium ABG Chloride ABG Glucose VBG pH Oxyhemoglobin Carboxyhemoglobin Sodium Potassium 3.5 L Chloride Carbon Dioxide 31 H 32 H BUN 19 H 19 H Creatinine 1.8 H 1.8 H Glucose POC Glucose Random Insulin C-Peptide Lactic Acid Calcium 7.0 L 7.2 L Ionized Calcium Phosphorus Magnesium 2.90 H AST ALT Alkaline Phosphatase Lactate Dehydrogenase NT-Pro-B Natriuret Pep Total Protein Albumin Arterial Blood Glucose Arterial Blood Ionized Calcium Urine pH Urine WBC (Auto) U Epithel Cells (Auto) Vancomycin Trough Phenytoin Crossmatch 10/06/20 10/06/20 10/06/20 01:05 03:12 04:00 WBC 17.1 H RBC 3.47 L Hgb Hct MCV MCH MCHC RDW 17.4 H Plt Count 82 L Lymph % (Auto) 8.3 L [place] % (Auto) Lymph # (Auto) [place] # (Auto) 1.1 H Baso # (Auto) Seg Neutrophils % 83.8 H Seg Neuts % (Manual) Lymphocytes % (Manual) Monocytes % (Manual) Nucleated RBC % Seg Neutrophils # 14.3 H Seg Neutrophils # Man Lymphocytes # (Manual) Monocytes # (Manual) PT INR APTT Fibrinogen D-Dimer ABG pH 7.474 H POC ABG pCO2 POC ABG pO2 129.5 H ABG pO2 ABG HCO3 ABG Base Excess ABG Hemoglobin 11.4 L ABG Oxyhemoglobin ABG Sodium 131.8 L ABG Potassium ABG Chloride ABG Glucose 103 H VBG pH Oxyhemoglobin Carboxyhemoglobin 0.3 L Sodium Potassium Chloride Carbon Dioxide BUN Creatinine Glucose POC Glucose Random Insulin C-Peptide Lactic Acid Calcium Ionized Calcium Phosphorus Magnesium 3.70 H AST ALT Alkaline Phosphatase Lactate Dehydrogenase NT-Pro-B Natriuret Pep Total Protein Albumin Arterial Blood Glucose 103 H Arterial Blood Ionized Calcium 4.2 L Urine pH Urine WBC (Auto) U Epithel Cells (Auto) Vancomycin Trough Phenytoin Crossmatch 10/06/20 10/06/20 10/06/20 04:00 05:31 08:12 WBC RBC Hgb Hct MCV MCH MCHC RDW Plt Count Lymph % (Auto) [place] % (Auto) Lymph # (Auto) [place] # (Auto) Baso # (Auto) Seg Neutrophils % Seg Neuts % (Manual) Lymphocytes % (Manual) Monocytes % (Manual) Nucleated RBC % Seg Neutrophils # Seg Neutrophils # Man Lymphocytes # (Manual) Monocytes # (Manual) PT INR APTT Fibrinogen D-Dimer ABG pH POC ABG pCO2 POC ABG pO2 ABG pO2 ABG HCO3 ABG Base Excess ABG Hemoglobin ABG Oxyhemoglobin ABG Sodium ABG Potassium ABG Chloride ABG Glucose VBG pH Oxyhemoglobin Carboxyhemoglobin Sodium Potassium 3.5 L Chloride Carbon Dioxide BUN 19 H Creatinine 1.8 H Glucose 102 H POC Glucose 116 H Random Insulin C-Peptide Lactic Acid Calcium 7.2 L Ionized Calcium Phosphorus Magnesium 5.40 H AST 307 H ALT 137 H Alkaline Phosphatase Lactate Dehydrogenase NT-Pro-B Natriuret Pep Total Protein 4.5 L Albumin 2.6 L Arterial Blood Glucose Arterial Blood Ionized Calcium Urine pH Urine WBC (Auto) U Epithel Cells (Auto) Vancomycin Trough Phenytoin Crossmatch 10/06/20 10/06/20 10/06/20 11:00 11:50 20:13 WBC RBC Hgb Hct MCV MCH MCHC RDW Plt Count Lymph % (Auto) [place] % (Auto) Lymph # (Auto) [place] # (Auto) Baso # (Auto) Seg Neutrophils % Seg Neuts % (Manual) Lymphocytes % (Manual) Monocytes % (Manual) Nucleated RBC % Seg Neutrophils # Seg Neutrophils # Man Lymphocytes # (Manual) Monocytes # (Manual) PT INR APTT Fibrinogen D-Dimer ABG pH POC ABG pCO2 POC ABG pO2 ABG pO2 ABG HCO3 ABG Base Excess ABG Hemoglobin ABG Oxyhemoglobin ABG Sodium ABG Potassium ABG Chloride ABG Glucose VBG pH Oxyhemoglobin Carboxyhemoglobin Sodium Potassium Chloride Carbon Dioxide BUN Creatinine Glucose POC Glucose 106 H Random Insulin C-Peptide Lactic Acid Calcium Ionized Calcium Phosphorus Magnesium 6.50 H 6.20 H AST ALT Alkaline Phosphatase Lactate Dehydrogenase NT-Pro-B Natriuret Pep Total Protein Albumin Arterial Blood Glucose Arterial Blood Ionized Calcium Urine pH Urine WBC (Auto) U Epithel Cells (Auto) Vancomycin Trough Phenytoin Crossmatch 10/06/20 10/06/20 10/06/20 20:17 22:29 23:57 WBC RBC Hgb Hct MCV MCH MCHC RDW Plt Count Lymph % (Auto) [place] % (Auto) Lymph # (Auto) [place] # (Auto) Baso # (Auto) Seg Neutrophils % Seg Neuts % (Manual) Lymphocytes % (Manual) Monocytes % (Manual) Nucleated RBC % Seg Neutrophils # Seg Neutrophils # Man Lymphocytes # (Manual) Monocytes # (Manual) PT INR APTT Fibrinogen D-Dimer ABG pH POC ABG pCO2 POC ABG pO2 ABG pO2 ABG HCO3 ABG Base Excess ABG Hemoglobin ABG Oxyhemoglobin ABG Sodium ABG Potassium ABG Chloride ABG Glucose VBG pH Oxyhemoglobin Carboxyhemoglobin Sodium Potassium Chloride Carbon Dioxide BUN Creatinine Glucose POC Glucose 112 H 126 H 133 H Random Insulin C-Peptide Lactic Acid Calcium Ionized Calcium Phosphorus Magnesium AST ALT Alkaline Phosphatase Lactate Dehydrogenase NT-Pro-B Natriuret Pep Total Protein Albumin Arterial Blood Glucose Arterial Blood Ionized Calcium Urine pH Urine WBC (Auto) U Epithel Cells (Auto) Vancomycin Trough Phenytoin Crossmatch 10/07/20 10/07/20 10/07/20 00:35 02:22 03:16 WBC RBC Hgb Hct MCV MCH MCHC RDW Plt Count Lymph % (Auto) [place] % (Auto) Lymph # (Auto) [place] # (Auto) Baso # (Auto) Seg Neutrophils % Seg Neuts % (Manual) Lymphocytes % (Manual) Monocytes % (Manual) Nucleated RBC % Seg Neutrophils # Seg Neutrophils # Man Lymphocytes # (Manual) Monocytes # (Manual) PT INR APTT Fibrinogen D-Dimer ABG pH POC ABG pCO2 POC ABG pO2 ABG pO2 ABG HCO3 ABG Base Excess ABG Hemoglobin 11.6 L ABG Oxyhemoglobin ABG Sodium ABG Potassium ABG Chloride ABG Glucose 156 H VBG pH Oxyhemoglobin Carboxyhemoglobin 0.3 L Sodium Potassium Chloride Carbon Dioxide BUN Creatinine Glucose POC Glucose 124 H Random Insulin C-Peptide Lactic Acid Calcium Ionized Calcium Phosphorus Magnesium 5.90 H AST ALT Alkaline Phosphatase Lactate Dehydrogenase NT-Pro-B Natriuret Pep Total Protein Albumin Arterial Blood Glucose 156 H Arterial Blood Ionized Calcium 4.2 L Urine pH Urine WBC (Auto) U Epithel Cells (Auto) Vancomycin Trough Phenytoin Crossmatch 10/07/20 10/07/20 10/07/20 04:06 05:45 07:05 WBC 19.2 H RBC 3.57 L Hgb Hct MCV MCH MCHC 35 H RDW 17.1 H Plt Count 129 L Lymph % (Auto) [place] % (Auto) Lymph # (Auto) [place] # (Auto) Baso # (Auto) Seg Neutrophils % Seg Neuts % (Manual) 94.0 H Lymphocytes % (Manual) 6.0 L Monocytes % (Manual) Nucleated RBC % Seg Neutrophils # Seg Neutrophils # Man 18.0 H Lymphocytes # (Manual) Monocytes # (Manual) PT INR APTT Fibrinogen D-Dimer ABG pH POC ABG pCO2 POC ABG pO2 ABG pO2 ABG HCO3 ABG Base Excess ABG Hemoglobin ABG Oxyhemoglobin ABG Sodium ABG Potassium ABG Chloride ABG Glucose VBG pH Oxyhemoglobin Carboxyhemoglobin Sodium Potassium Chloride Carbon Dioxide BUN Creatinine Glucose POC Glucose 135 H 149 H Random Insulin C-Peptide Lactic Acid Calcium Ionized Calcium Phosphorus Magnesium AST ALT Alkaline Phosphatase Lactate Dehydrogenase NT-Pro-B Natriuret Pep Total Protein Albumin Arterial Blood Glucose Arterial Blood Ionized Calcium Urine pH Urine WBC (Auto) U Epithel Cells (Auto) Vancomycin Trough Phenytoin Crossmatch 10/07/20 10/07/20 10/07/20 07:05 07:05 12:21 WBC RBC Hgb Hct MCV MCH MCHC RDW Plt Count Lymph % (Auto) [place] % (Auto) Lymph # (Auto) [place] # (Auto) Baso # (Auto) Seg Neutrophils % Seg Neuts % (Manual) Lymphocytes % (Manual) Monocytes % (Manual) Nucleated RBC % Seg Neutrophils # Seg Neutrophils # Man Lymphocytes # (Manual) Monocytes # (Manual) PT INR APTT Fibrinogen D-Dimer ABG pH POC ABG pCO2 POC ABG pO2 ABG pO2 ABG HCO3 ABG Base Excess ABG Hemoglobin ABG Oxyhemoglobin ABG Sodium ABG Potassium ABG Chloride ABG Glucose VBG pH Oxyhemoglobin Carboxyhemoglobin Sodium Potassium Chloride Carbon Dioxide BUN 21 H Creatinine 1.7 H Glucose 171 H POC Glucose 124 H Random Insulin C-Peptide Lactic Acid Calcium 7.4 L Ionized Calcium Phosphorus Magnesium 6.10 H AST 245 H ALT 147 H Alkaline Phosphatase Lactate Dehydrogenase NT-Pro-B Natriuret Pep Total Protein 5.3 L Albumin 2.8 L Arterial Blood Glucose Arterial Blood Ionized Calcium Urine pH Urine WBC (Auto) U Epithel Cells (Auto) Vancomycin Trough Phenytoin Crossmatch 10/07/20 10/07/20 10/07/20 19:52 21:00 21:50 WBC RBC Hgb Hct MCV MCH MCHC RDW Plt Count Lymph % (Auto) [place] % (Auto) Lymph # (Auto) [place] # (Auto) Baso # (Auto) Seg Neutrophils % Seg Neuts % (Manual) Lymphocytes % (Manual) Monocytes % (Manual) Nucleated RBC % Seg Neutrophils # Seg Neutrophils # Man Lymphocytes # (Manual) Monocytes # (Manual) PT INR APTT Fibrinogen D-Dimer ABG pH POC ABG pCO2 POC ABG pO2 ABG pO2 ABG HCO3 ABG Base Excess ABG Hemoglobin ABG Oxyhemoglobin ABG Sodium ABG Potassium ABG Chloride ABG Glucose VBG pH Oxyhemoglobin Carboxyhemoglobin Sodium Potassium Chloride Carbon Dioxide BUN Creatinine Glucose POC Glucose 193 H 138 H Random Insulin C-Peptide Lactic Acid Calcium Ionized Calcium 4.4 L Phosphorus Magnesium AST ALT Alkaline Phosphatase Lactate Dehydrogenase NT-Pro-B Natriuret Pep Total Protein Albumin Arterial Blood Glucose Arterial Blood Ionized Calcium Urine pH Urine WBC (Auto) U Epithel Cells (Auto) Vancomycin Trough Phenytoin Crossmatch 10/07/20 10/08/20 10/08/20 23:41 04:20 05:30 WBC RBC Hgb Hct MCV MCH MCHC RDW Plt Count Lymph % (Auto) [place] % (Auto) Lymph # (Auto) [place] # (Auto) Baso # (Auto) Seg Neutrophils % Seg Neuts % (Manual) Lymphocytes % (Manual) Monocytes % (Manual) Nucleated RBC % Seg Neutrophils # Seg Neutrophils # Man Lymphocytes # (Manual) Monocytes # (Manual) PT INR APTT Fibrinogen D-Dimer ABG pH 7.467 H POC ABG pCO2 POC ABG pO2 189.8 H ABG pO2 ABG HCO3 ABG Base Excess ABG Hemoglobin 10.8 L ABG Oxyhemoglobin ABG Sodium ABG Potassium ABG Chloride ABG Glucose 133 H VBG pH Oxyhemoglobin Carboxyhemoglobin Sodium Potassium Chloride Carbon Dioxide BUN Creatinine Glucose POC Glucose 118 H 114 H Random Insulin C-Peptide Lactic Acid Calcium Ionized Calcium Phosphorus Magnesium AST ALT Alkaline Phosphatase Lactate Dehydrogenase NT-Pro-B Natriuret Pep Total Protein Albumin Arterial Blood Glucose 133 H Arterial Blood Ionized Calcium 4.2 L Urine pH Urine WBC (Auto) U Epithel Cells (Auto) Vancomycin Trough Phenytoin Crossmatch 10/08/20 10/08/20 10/08/20 05:43 06:42 06:42 WBC 23.6 H RBC 3.54 L Hgb Hct MCV MCH MCHC RDW 17.8 H Plt Count Lymph % (Auto) [place] % (Auto) Lymph # (Auto) [place] # (Auto) Baso # (Auto) Seg Neutrophils % Seg Neuts % (Manual) 93.0 H Lymphocytes % (Manual) 3.0 L Monocytes % (Manual) Nucleated RBC % 1.0 H Seg Neutrophils # Seg Neutrophils # Man 21.9 H Lymphocytes # (Manual) 0.7 L Monocytes # (Manual) 0.9 H PT INR APTT Fibrinogen D-Dimer ABG pH POC ABG pCO2 POC ABG pO2 ABG pO2 ABG HCO3 ABG Base Excess ABG Hemoglobin ABG Oxyhemoglobin ABG Sodium ABG Potassium ABG Chloride ABG Glucose VBG pH Oxyhemoglobin Carboxyhemoglobin Sodium Potassium Chloride Carbon Dioxide BUN 28 H Creatinine 1.6 H Glucose 141 H POC Glucose 126 H Random Insulin C-Peptide Lactic Acid Calcium 7.6 L Ionized Calcium Phosphorus Magnesium AST 162 H ALT 103 H Alkaline Phosphatase Lactate Dehydrogenase NT-Pro-B Natriuret Pep Total Protein 5.4 L Albumin 2.7 L Arterial Blood Glucose Arterial Blood Ionized Calcium Urine pH Urine WBC (Auto) U Epithel Cells (Auto) Vancomycin Trough Phenytoin Crossmatch 10/08/20 10/08/20 10/08/20 11:20 16:05 20:14 WBC RBC Hgb Hct MCV MCH MCHC RDW Plt Count Lymph % (Auto) [place] % (Auto) Lymph # (Auto) [place] # (Auto) Baso # (Auto) Seg Neutrophils % Seg Neuts % (Manual) Lymphocytes % (Manual) Monocytes % (Manual) Nucleated RBC % Seg Neutrophils # Seg Neutrophils # Man Lymphocytes # (Manual) Monocytes # (Manual) PT INR APTT Fibrinogen D-Dimer ABG pH POC ABG pCO2 POC ABG pO2 ABG pO2 ABG HCO3 ABG Base Excess ABG Hemoglobin ABG Oxyhemoglobin ABG Sodium ABG Potassium ABG Chloride ABG Glucose VBG pH Oxyhemoglobin Carboxyhemoglobin Sodium Potassium Chloride Carbon Dioxide BUN Creatinine Glucose POC Glucose 127 H 172 H 147 H Random Insulin C-Peptide Lactic Acid Calcium Ionized Calcium Phosphorus Magnesium AST ALT Alkaline Phosphatase Lactate Dehydrogenase NT-Pro-B Natriuret Pep Total Protein Albumin Arterial Blood Glucose Arterial Blood Ionized Calcium Urine pH Urine WBC (Auto) U Epithel Cells (Auto) Vancomycin Trough Phenytoin Crossmatch 10/08/20 10/08/20 10/09/20 21:27 23:24 02:10 WBC RBC Hgb Hct MCV MCH MCHC RDW Plt Count Lymph % (Auto) [place] % (Auto) Lymph # (Auto) [place] # (Auto) Baso # (Auto) Seg Neutrophils % Seg Neuts % (Manual) Lymphocytes % (Manual) Monocytes % (Manual) Nucleated RBC % Seg Neutrophils # Seg Neutrophils # Man Lymphocytes # (Manual) Monocytes # (Manual) PT INR APTT Fibrinogen D-Dimer ABG pH POC ABG pCO2 POC ABG pO2 ABG pO2 ABG HCO3 ABG Base Excess ABG Hemoglobin ABG Oxyhemoglobin ABG Sodium ABG Potassium ABG Chloride ABG Glucose VBG pH Oxyhemoglobin Carboxyhemoglobin Sodium Potassium Chloride Carbon Dioxide BUN Creatinine Glucose POC Glucose 140 H 135 H 111 H Random Insulin C-Peptide Lactic Acid Calcium Ionized Calcium Phosphorus Magnesium AST ALT Alkaline Phosphatase Lactate Dehydrogenase NT-Pro-B Natriuret Pep Total Protein Albumin Arterial Blood Glucose Arterial Blood Ionized Calcium Urine pH Urine WBC (Auto) U Epithel Cells (Auto) Vancomycin Trough Phenytoin Crossmatch 10/09/20 10/09/20 10/09/20 03:44 04:39 05:46 WBC 19.7 H RBC 3.51 L Hgb Hct MCV MCH MCHC RDW 17.7 H Plt Count Lymph % (Auto) [place] % (Auto) Lymph # (Auto) [place] # (Auto) Baso # (Auto) Seg Neutrophils % Seg Neuts % (Manual) 86.0 H Lymphocytes % (Manual) 4.0 L Monocytes % (Manual) 9.0 H Nucleated RBC % Seg Neutrophils # Seg Neutrophils # Man 16.9 H Lymphocytes # (Manual) 0.8 L Monocytes # (Manual) 1.8 H PT INR APTT Fibrinogen D-Dimer ABG pH 7.513 H POC ABG pCO2 POC ABG pO2 33.6 L ABG pO2 ABG HCO3 ABG Base Excess ABG Hemoglobin 11.1 L ABG Oxyhemoglobin 70.2 L ABG Sodium ABG Potassium 3.2 L ABG Chloride 108.0 H ABG Glucose 108 H VBG pH Oxyhemoglobin Carboxyhemoglobin Sodium Potassium Chloride Carbon Dioxide BUN Creatinine Glucose POC Glucose 109 H Random Insulin C-Peptide Lactic Acid Calcium Ionized Calcium Phosphorus Magnesium AST ALT Alkaline Phosphatase Lactate Dehydrogenase NT-Pro-B Natriuret Pep Total Protein Albumin Arterial Blood Glucose 108 H Arterial Blood Ionized Calcium 4.3 L Urine pH Urine WBC (Auto) U Epithel Cells (Auto) Vancomycin Trough Phenytoin Crossmatch 10/09/20 10/10/20 10/10/20 05:46 04:00 04:00 WBC 18.4 H RBC Hgb Hct MCV MCH MCHC RDW 17.5 H Plt Count Lymph % (Auto) 9.8 L [place] % (Auto) 8.8 H Lymph # (Auto) [place] # (Auto) 1.6 H Baso # (Auto) Seg Neutrophils % 80.0 H Seg Neuts % (Manual) Lymphocytes % (Manual) Monocytes % (Manual) Nucleated RBC % Seg Neutrophils # 14.7 H Seg Neutrophils # Man Lymphocytes # (Manual) Monocytes # (Manual) PT INR APTT Fibrinogen D-Dimer ABG pH POC ABG pCO2 POC ABG pO2 ABG pO2 ABG HCO3 ABG Base Excess ABG Hemoglobin ABG Oxyhemoglobin ABG Sodium ABG Potassium ABG Chloride ABG Glucose VBG pH Oxyhemoglobin Carboxyhemoglobin Sodium 146 H Potassium 3.2 L 2.9 L* Chloride 108.9 H 112.6 H Carbon Dioxide BUN 34 H 28 H Creatinine 1.4 H 1.3 H Glucose 109 H 101 H POC Glucose Random Insulin C-Peptide Lactic Acid Calcium 7.6 L 7.8 L Ionized Calcium Phosphorus Magnesium AST 137 H 122 H ALT 99 H 81 H Alkaline Phosphatase Lactate Dehydrogenase NT-Pro-B Natriuret Pep Total Protein 5.1 L 5.2 L Albumin 2.6 L 2.7 L Arterial Blood Glucose Arterial Blood Ionized Calcium Urine pH Urine WBC (Auto) U Epithel Cells (Auto) Vancomycin Trough Phenytoin Crossmatch 10/10/20 10/10/20 10/11/20 04:42 09:50 00:44 WBC RBC Hgb Hct MCV MCH MCHC RDW Plt Count Lymph % (Auto) [place] % (Auto) Lymph # (Auto) [place] # (Auto) Baso # (Auto) Seg Neutrophils % Seg Neuts % (Manual) Lymphocytes % (Manual) Monocytes % (Manual) Nucleated RBC % Seg Neutrophils # Seg Neutrophils # Man Lymphocytes # (Manual) Monocytes # (Manual) PT INR APTT Fibrinogen D-Dimer ABG pH 7.534 H POC ABG pCO2 POC ABG pO2 ABG pO2 95.2 H ABG HCO3 ABG Base Excess ABG Hemoglobin 11.3 L ABG Oxyhemoglobin ABG Sodium ABG Potassium ABG Chloride ABG Glucose VBG pH Oxyhemoglobin Carboxyhemoglobin Sodium Potassium Chloride Carbon Dioxide BUN Creatinine Glucose POC Glucose 109 H 106 H Random Insulin C-Peptide Lactic Acid Calcium Ionized Calcium Phosphorus Magnesium AST ALT Alkaline Phosphatase Lactate Dehydrogenase NT-Pro-B Natriuret Pep Total Protein Albumin Arterial Blood Glucose Arterial Blood Ionized Calcium Urine pH Urine WBC (Auto) U Epithel Cells (Auto) Vancomycin Trough Phenytoin Crossmatch 10/11/20 10/11/20 10/11/20 04:00 04:00 06:08 WBC 27.0 H RBC Hgb Hct MCV MCH MCHC RDW 17.7 H Plt Count Lymph % (Auto) 6.3 L [place] % (Auto) Lymph # (Auto) [place] # (Auto) 1.5 H Baso # (Auto) Seg Neutrophils % 87.1 H Seg Neuts % (Manual) Lymphocytes % (Manual) Monocytes % (Manual) Nucleated RBC % Seg Neutrophils # 23.5 H Seg Neutrophils # Man Lymphocytes # (Manual) Monocytes # (Manual) PT INR APTT Fibrinogen D-Dimer ABG pH POC ABG pCO2 POC ABG pO2 ABG pO2 ABG HCO3 ABG Base Excess ABG Hemoglobin ABG Oxyhemoglobin ABG Sodium ABG Potassium ABG Chloride ABG Glucose VBG pH Oxyhemoglobin Carboxyhemoglobin Sodium Potassium 3.2 L Chloride 110.4 H Carbon Dioxide 19 L BUN 22 H Creatinine Glucose 116 H POC Glucose 107 H Random Insulin C-Peptide Lactic Acid Calcium 7.7 L Ionized Calcium Phosphorus Magnesium 1.60 L AST ALT Alkaline Phosphatase Lactate Dehydrogenase NT-Pro-B Natriuret Pep Total Protein Albumin Arterial Blood Glucose Arterial Blood Ionized Calcium Urine pH Urine WBC (Auto) U Epithel Cells (Auto) Vancomycin Trough Phenytoin Crossmatch 10/11/20 10/11/20 10/12/20 11:41 13:26 03:52 WBC RBC Hgb Hct MCV MCH MCHC RDW Plt Count Lymph % (Auto) [place] % (Auto) Lymph # (Auto) [place] # (Auto) Baso # (Auto) Seg Neutrophils % Seg Neuts % (Manual) Lymphocytes % (Manual) Monocytes % (Manual) Nucleated RBC % Seg Neutrophils # Seg Neutrophils # Man Lymphocytes # (Manual) Monocytes # (Manual) PT INR APTT Fibrinogen D-Dimer ABG pH POC ABG pCO2 POC ABG pO2 ABG pO2 ABG HCO3 ABG Base Excess ABG Hemoglobin ABG Oxyhemoglobin ABG Sodium ABG Potassium ABG Chloride ABG Glucose VBG pH Oxyhemoglobin Carboxyhemoglobin Sodium Potassium Chloride Carbon Dioxide BUN Creatinine Glucose POC Glucose 116 H 114 H Random Insulin C-Peptide Lactic Acid Calcium Ionized Calcium Phosphorus Magnesium AST ALT Alkaline Phosphatase Lactate Dehydrogenase NT-Pro-B Natriuret Pep Total Protein Albumin Arterial Blood Glucose Arterial Blood Ionized Calcium Urine pH Urine WBC (Auto) 24.0 H U Epithel Cells (Auto) Vancomycin Trough Phenytoin Crossmatch 10/12/20 10/12/20 10/12/20 04:24 14:47 21:33 WBC RBC Hgb Hct MCV MCH MCHC RDW Plt Count Lymph % (Auto) [place] % (Auto) Lymph # (Auto) [place] # (Auto) Baso # (Auto) Seg Neutrophils % Seg Neuts % (Manual) Lymphocytes % (Manual) Monocytes % (Manual) Nucleated RBC % Seg Neutrophils # Seg Neutrophils # Man Lymphocytes # (Manual) Monocytes # (Manual) PT INR APTT Fibrinogen D-Dimer ABG pH POC ABG pCO2 POC ABG pO2 ABG pO2 ABG HCO3 ABG Base Excess ABG Hemoglobin ABG Oxyhemoglobin ABG Sodium ABG Potassium ABG Chloride ABG Glucose VBG pH Oxyhemoglobin Carboxyhemoglobin Sodium Potassium Chloride 109.9 H Carbon Dioxide 13 L BUN 18 H Creatinine Glucose 119 H POC Glucose 107 H Random Insulin C-Peptide Lactic Acid Calcium 7.6 L Ionized Calcium Phosphorus Magnesium 1.60 L AST ALT Alkaline Phosphatase Lactate Dehydrogenase NT-Pro-B Natriuret Pep Total Protein Albumin Arterial Blood Glucose Arterial Blood Ionized Calcium Urine pH Urine WBC (Auto) U Epithel Cells (Auto) Vancomycin Trough Phenytoin Crossmatch 10/12/20 10/12/20 10/13/20 Unknown Unknown 07:00 WBC 24.3 H RBC 3.38 L Hgb 9.8 L Hct MCV MCH MCHC RDW 18.7 H Plt Count Lymph % (Auto) [place] % (Auto) Lymph # (Auto) [place] # (Auto) Baso # (Auto) Seg Neutrophils % Seg Neuts % (Manual) 93.5 H Lymphocytes % (Manual) 4.5 L Monocytes % (Manual) Nucleated RBC % Seg Neutrophils # Seg Neutrophils # Man 22.7 H Lymphocytes # (Manual) 1.1 L Monocytes # (Manual) PT INR APTT Fibrinogen D-Dimer ABG pH POC ABG pCO2 POC ABG pO2 ABG pO2 ABG HCO3 ABG Base Excess ABG Hemoglobin ABG Oxyhemoglobin ABG Sodium ABG Potassium ABG Chloride ABG Glucose VBG pH Oxyhemoglobin Carboxyhemoglobin Sodium 135 L D Potassium 3.1 L Chloride Carbon Dioxide 17 L BUN Creatinine Glucose 510 H* POC Glucose Random Insulin C-Peptide Lactic Acid Calcium 7.2 L Ionized Calcium Phosphorus Magnesium AST ALT Alkaline Phosphatase Lactate Dehydrogenase NT-Pro-B Natriuret Pep Total Protein Albumin Arterial Blood Glucose Arterial Blood Ionized Calcium Urine pH Urine WBC (Auto) U Epithel Cells (Auto) Vancomycin Trough Phenytoin 5.7 L Crossmatch 10/13/20 10/13/20 10/13/20 07:00 07:00 07:18 WBC 23.6 H RBC 3.26 L Hgb 9.4 L Hct 28.7 L MCV MCH MCHC RDW 18.3 H Plt Count Lymph % (Auto) [place] % (Auto) Lymph # (Auto) [place] # (Auto) Baso # (Auto) Seg Neutrophils % Seg Neuts % (Manual) Lymphocytes % (Manual) Monocytes % (Manual) Nucleated RBC % Seg Neutrophils # Seg Neutrophils # Man Lymphocytes # (Manual) Monocytes # (Manual) PT INR APTT Fibrinogen D-Dimer ABG pH 7.473 H POC ABG pCO2 20.7 L POC ABG pO2 137.9 H ABG pO2 ABG HCO3 ABG Base Excess ABG Hemoglobin 11.2 L ABG Oxyhemoglobin 98.3 H ABG Sodium 135.9 L ABG Potassium ABG Chloride 111.0 H ABG Glucose 109 H VBG pH Oxyhemoglobin Carboxyhemoglobin 0.3 L Sodium 135 L Potassium 3.5 L Chloride 109.1 H Carbon Dioxide 18 L BUN Creatinine Glucose POC Glucose Random Insulin C-Peptide Lactic Acid Calcium 7.3 L Ionized Calcium Phosphorus Magnesium 1.60 L AST ALT Alkaline Phosphatase Lactate Dehydrogenase NT-Pro-B Natriuret Pep Total Protein Albumin Arterial Blood Glucose 109 H Arterial Blood Ionized Calcium Urine pH Urine WBC (Auto) U Epithel Cells (Auto) Vancomycin Trough Phenytoin Crossmatch 10/14/20 10/14/20 10/15/20 04:00 04:00 05:50 WBC 28.6 H 23.2 H RBC 3.61 L 3.43 L Hgb 9.9 L Hct 30.0 L MCV MCH MCHC RDW 18.3 H 18.2 H Plt Count Lymph % (Auto) [place] % (Auto) Lymph # (Auto) [place] # (Auto) Baso # (Auto) Seg Neutrophils % Seg Neuts % (Manual) 88.0 H 90.0 H Lymphocytes % (Manual) 5.0 L 4.0 L Monocytes % (Manual) Nucleated RBC % Seg Neutrophils # Seg Neutrophils # Man 25.2 H 20.9 H Lymphocytes # (Manual) 0.9 L Monocytes # (Manual) 1.4 H 0.9 H PT INR APTT Fibrinogen D-Dimer ABG pH POC ABG pCO2 POC ABG pO2 ABG pO2 ABG HCO3 ABG Base Excess ABG Hemoglobin ABG Oxyhemoglobin ABG Sodium ABG Potassium ABG Chloride ABG Glucose VBG pH Oxyhemoglobin Carboxyhemoglobin Sodium Potassium Chloride 109.9 H Carbon Dioxide 17 L BUN Creatinine Glucose POC Glucose Random Insulin C-Peptide Lactic Acid Calcium Ionized Calcium Phosphorus Magnesium AST ALT Alkaline Phosphatase Lactate Dehydrogenase NT-Pro-B Natriuret Pep Total Protein Albumin Arterial Blood Glucose Arterial Blood Ionized Calcium Urine pH Urine WBC (Auto) U Epithel Cells (Auto) Vancomycin Trough Phenytoin Crossmatch 10/15/20 10/16/20 10/17/20 05:50 11:57 04:57 WBC 15.2 H RBC 3.43 L Hgb Hct MCV MCH MCHC RDW 18.1 H Plt Count Lymph % (Auto) [place] % (Auto) Lymph # (Auto) [place] # (Auto) Baso # (Auto) Seg Neutrophils % Seg Neuts % (Manual) Lymphocytes % (Manual) Monocytes % (Manual) Nucleated RBC % Seg Neutrophils # Seg Neutrophils # Man Lymphocytes # (Manual) Monocytes # (Manual) PT INR APTT Fibrinogen D-Dimer ABG pH POC ABG pCO2 POC ABG pO2 ABG pO2 ABG HCO3 ABG Base Excess ABG Hemoglobin ABG Oxyhemoglobin ABG Sodium ABG Potassium ABG Chloride ABG Glucose VBG pH Oxyhemoglobin Carboxyhemoglobin Sodium Potassium Chloride 110.3 H Carbon Dioxide 18 L BUN Creatinine Glucose 105 H POC Glucose 111 H Random Insulin C-Peptide Lactic Acid Calcium 8.3 L Ionized Calcium Phosphorus Magnesium AST ALT Alkaline Phosphatase Lactate Dehydrogenase NT-Pro-B Natriuret Pep Total Protein Albumin Arterial Blood Glucose Arterial Blood Ionized Calcium Urine pH Urine WBC (Auto) U Epithel Cells (Auto) Vancomycin Trough Phenytoin Crossmatch 10/17/20 10/17/20 10/18/20 05:25 21:16 01:31 WBC RBC Hgb Hct MCV MCH MCHC RDW Plt Count Lymph % (Auto) [place] % (Auto) Lymph # (Auto) [place] # (Auto) Baso # (Auto) Seg Neutrophils % Seg Neuts % (Manual) Lymphocytes % (Manual) Monocytes % (Manual) Nucleated RBC % Seg Neutrophils # Seg Neutrophils # Man Lymphocytes # (Manual) Monocytes # (Manual) PT INR APTT Fibrinogen D-Dimer ABG pH POC ABG pCO2 POC ABG pO2 ABG pO2 ABG HCO3 ABG Base Excess ABG Hemoglobin ABG Oxyhemoglobin ABG Sodium ABG Potassium ABG Chloride ABG Glucose VBG pH Oxyhemoglobin Carboxyhemoglobin Sodium Potassium Chloride Carbon Dioxide BUN Creatinine Glucose POC Glucose 107 H 106 H 119 H Random Insulin C-Peptide Lactic Acid Calcium Ionized Calcium Phosphorus Magnesium AST ALT Alkaline Phosphatase Lactate Dehydrogenase NT-Pro-B Natriuret Pep Total Protein Albumin Arterial Blood Glucose Arterial Blood Ionized Calcium Urine pH Urine WBC (Auto) U Epithel Cells (Auto) Vancomycin Trough Phenytoin Crossmatch 10/18/20 10/18/20 10/19/20 05:45 11:23 01:14 WBC RBC Hgb Hct MCV MCH MCHC RDW Plt Count Lymph % (Auto) [place] % (Auto) Lymph # (Auto) [place] # (Auto) Baso # (Auto) Seg Neutrophils % Seg Neuts % (Manual) Lymphocytes % (Manual) Monocytes % (Manual) Nucleated RBC % Seg Neutrophils # Seg Neutrophils # Man Lymphocytes # (Manual) Monocytes # (Manual) PT INR APTT Fibrinogen D-Dimer ABG pH POC ABG pCO2 POC ABG pO2 ABG pO2 ABG HCO3 ABG Base Excess ABG Hemoglobin ABG Oxyhemoglobin ABG Sodium ABG Potassium ABG Chloride ABG Glucose VBG pH Oxyhemoglobin Carboxyhemoglobin Sodium Potassium Chloride Carbon Dioxide BUN Creatinine Glucose POC Glucose 106 H 115 H 108 H Random Insulin C-Peptide Lactic Acid Calcium Ionized Calcium Phosphorus Magnesium AST ALT Alkaline Phosphatase Lactate Dehydrogenase NT-Pro-B Natriuret Pep Total Protein Albumin Arterial Blood Glucose Arterial Blood Ionized Calcium Urine pH Urine WBC (Auto) U Epithel Cells (Auto) Vancomycin Trough Phenytoin Crossmatch 10/19/20 10/20/20 10/20/20 09:57 05:40 07:59 WBC RBC Hgb Hct MCV MCH MCHC RDW Plt Count Lymph % (Auto) [place] % (Auto) Lymph # (Auto) [place] # (Auto) Baso # (Auto) Seg Neutrophils % Seg Neuts % (Manual) Lymphocytes % (Manual) Monocytes % (Manual) Nucleated RBC % Seg Neutrophils # Seg Neutrophils # Man Lymphocytes # (Manual) Monocytes # (Manual) PT INR APTT Fibrinogen D-Dimer ABG pH POC ABG pCO2 POC ABG pO2 ABG pO2 ABG HCO3 ABG Base Excess ABG Hemoglobin ABG Oxyhemoglobin ABG Sodium ABG Potassium ABG Chloride ABG Glucose VBG pH Oxyhemoglobin Carboxyhemoglobin Sodium Potassium Chloride Carbon Dioxide BUN Creatinine Glucose 106 H POC Glucose 122 H 109 H Random Insulin C-Peptide Lactic Acid Calcium Ionized Calcium Phosphorus Magnesium AST ALT Alkaline Phosphatase Lactate Dehydrogenase NT-Pro-B Natriuret Pep Total Protein Albumin Arterial Blood Glucose Arterial Blood Ionized Calcium Urine pH Urine WBC (Auto) U Epithel Cells (Auto) Vancomycin Trough Phenytoin Crossmatch 10/20/20 10/20/20 10/21/20 16:52 16:52 13:54 WBC 18.8 H 17.0 H RBC Hgb Hct MCV MCH MCHC RDW 17.7 H 17.8 H Plt Count 547 H 544 H Lymph % (Auto) 11.2 L [place] % (Auto) 8.1 H Lymph # (Auto) [place] # (Auto) 1.5 H Baso # (Auto) 0.2 H Seg Neutrophils % 78.8 H Seg Neuts % (Manual) Lymphocytes % (Manual) Monocytes % (Manual) Nucleated RBC % Seg Neutrophils # 14.8 H Seg Neutrophils # Man Lymphocytes # (Manual) Monocytes # (Manual) PT INR APTT Fibrinogen D-Dimer ABG pH POC ABG pCO2 POC ABG pO2 ABG pO2 ABG HCO3 ABG Base Excess ABG Hemoglobin ABG Oxyhemoglobin ABG Sodium ABG Potassium ABG Chloride ABG Glucose VBG pH Oxyhemoglobin Carboxyhemoglobin Sodium Potassium Chloride Carbon Dioxide BUN Creatinine Glucose POC Glucose Random Insulin C-Peptide Lactic Acid Calcium Ionized Calcium Phosphorus Magnesium AST ALT Alkaline Phosphatase Lactate Dehydrogenase NT-Pro-B Natriuret Pep Total Protein Albumin Arterial Blood Glucose Arterial Blood Ionized Calcium Urine pH Urine WBC (Auto) U Epithel Cells (Auto) Vancomycin Trough 34.5 H Phenytoin Crossmatch 10/21/20 10/22/20 10/23/20 13:54 07:26 05:34 WBC 18.7 H 13.0 H RBC 3.64 L 3.50 L Hgb Hct 30.0 L MCV MCH MCHC 35 H RDW 17.7 H 17.6 H Plt Count 502 H 503 H Lymph % (Auto) [place] % (Auto) Lymph # (Auto) [place] # (Auto) Baso # (Auto) Seg Neutrophils % Seg Neuts % (Manual) Lymphocytes % (Manual) Monocytes % (Manual) Nucleated RBC % Seg Neutrophils # Seg Neutrophils # Man Lymphocytes # (Manual) Monocytes # (Manual) PT INR APTT Fibrinogen D-Dimer ABG pH POC ABG pCO2 POC ABG pO2 ABG pO2 ABG HCO3 ABG Base Excess ABG Hemoglobin ABG Oxyhemoglobin ABG Sodium ABG Potassium ABG Chloride ABG Glucose VBG pH Oxyhemoglobin Carboxyhemoglobin Sodium 136 L Potassium Chloride Carbon Dioxide BUN Creatinine Glucose 120 H POC Glucose Random Insulin C-Peptide Lactic Acid Calcium Ionized Calcium Phosphorus Magnesium AST ALT Alkaline Phosphatase Lactate Dehydrogenase NT-Pro-B Natriuret Pep Total Protein Albumin Arterial Blood Glucose Arterial Blood Ionized Calcium Urine pH Urine WBC (Auto) U Epithel Cells (Auto) Vancomycin Trough Phenytoin Crossmatch 10/23/20 10/26/20 10/27/20 05:34 10:30 07:53 WBC 13.6 H RBC 3.38 L Hgb 10.0 L Hct 28.8 L MCV MCH MCHC 35 H RDW 17.6 H Plt Count Lymph % (Auto) [place] % (Auto) Lymph # (Auto) [place] # (Auto) Baso # (Auto) Seg Neutrophils % Seg Neuts % (Manual) Lymphocytes % (Manual) Monocytes % (Manual) Nucleated RBC % Seg Neutrophils # Seg Neutrophils # Man Lymphocytes # (Manual) Monocytes # (Manual) PT INR APTT Fibrinogen D-Dimer ABG pH 7.459 H POC ABG pCO2 POC ABG pO2 ABG pO2 112.2 H ABG HCO3 ABG Base Excess ABG Hemoglobin ABG Oxyhemoglobin ABG Sodium ABG Potassium ABG Chloride ABG Glucose VBG pH Oxyhemoglobin Carboxyhemoglobin Sodium 135 L Potassium Chloride Carbon Dioxide BUN Creatinine Glucose 105 H POC Glucose Random Insulin C-Peptide Lactic Acid Calcium Ionized Calcium Phosphorus Magnesium AST ALT Alkaline Phosphatase Lactate Dehydrogenase NT-Pro-B Natriuret Pep Total Protein Albumin Arterial Blood Glucose Arterial Blood Ionized Calcium Urine pH Urine WBC (Auto) U Epithel Cells (Auto) Vancomycin Trough Phenytoin Crossmatch 10/27/20 10/27/20 10/28/20 07:53 11:31 05:19 WBC RBC Hgb Hct MCV MCH MCHC RDW Plt Count Lymph % (Auto) [place] % (Auto) Lymph # (Auto) [place] # (Auto) Baso # (Auto) Seg Neutrophils % Seg Neuts % (Manual) Lymphocytes % (Manual) Monocytes % (Manual) Nucleated RBC % Seg Neutrophils # Seg Neutrophils # Man Lymphocytes # (Manual) Monocytes # (Manual) PT INR APTT Fibrinogen D-Dimer ABG pH POC ABG pCO2 POC ABG pO2 ABG pO2 ABG HCO3 ABG Base Excess ABG Hemoglobin ABG Oxyhemoglobin ABG Sodium ABG Potassium ABG Chloride ABG Glucose VBG pH Oxyhemoglobin Carboxyhemoglobin Sodium Potassium Chloride Carbon Dioxide BUN 20 H Creatinine Glucose 112 H POC Glucose 113 H 112 H Random Insulin C-Peptide Lactic Acid Calcium Ionized Calcium Phosphorus Magnesium AST 83 H ALT Alkaline Phosphatase Lactate Dehydrogenase NT-Pro-B Natriuret Pep Total Protein Albumin 3.8 L Arterial Blood Glucose Arterial Blood Ionized Calcium Urine pH Urine WBC (Auto) U Epithel Cells (Auto) Vancomycin Trough Phenytoin Crossmatch 10/29/20 10/29/20 10/29/20 07:56 07:56 11:37 WBC 13.6 H RBC Hgb Hct MCV MCH MCHC RDW 17.0 H Plt Count Lymph % (Auto) [place] % (Auto) Lymph # (Auto) [place] # (Auto) Baso # (Auto) Seg Neutrophils % Seg Neuts % (Manual) 80.0 H Lymphocytes % (Manual) Monocytes % (Manual) Nucleated RBC % Seg Neutrophils # Seg Neutrophils # Man 10.9 H Lymphocytes # (Manual) Monocytes # (Manual) PT INR APTT Fibrinogen D-Dimer ABG pH POC ABG pCO2 POC ABG pO2 ABG pO2 ABG HCO3 ABG Base Excess ABG Hemoglobin ABG Oxyhemoglobin ABG Sodium ABG Potassium ABG Chloride ABG Glucose VBG pH Oxyhemoglobin Carboxyhemoglobin Sodium Potassium Chloride Carbon Dioxide BUN Creatinine Glucose POC Glucose 108 H Random Insulin C-Peptide Lactic Acid Calcium Ionized Calcium Phosphorus 4.70 H Magnesium AST ALT Alkaline Phosphatase Lactate Dehydrogenase NT-Pro-B Natriuret Pep Total Protein Albumin Arterial Blood Glucose Arterial Blood Ionized Calcium Urine pH Urine WBC (Auto) U Epithel Cells (Auto) Vancomycin Trough Phenytoin Crossmatch 10/29/20 10/30/20 10/30/20 13:32 12:11 17:19 WBC RBC Hgb Hct MCV MCH MCHC RDW Plt Count Lymph % (Auto) [place] % (Auto) Lymph # (Auto) [place] # (Auto) Baso # (Auto) Seg Neutrophils % Seg Neuts % (Manual) Lymphocytes % (Manual) Monocytes % (Manual) Nucleated RBC % Seg Neutrophils # Seg Neutrophils # Man Lymphocytes # (Manual) Monocytes # (Manual) PT INR APTT Fibrinogen D-Dimer ABG pH POC ABG pCO2 POC ABG pO2 ABG pO2 ABG HCO3 ABG Base Excess ABG Hemoglobin ABG Oxyhemoglobin ABG Sodium ABG Potassium ABG Chloride ABG Glucose VBG pH Oxyhemoglobin Carboxyhemoglobin Sodium Potassium Chloride Carbon Dioxide BUN Creatinine Glucose POC Glucose 108 H 106 H 107 H Random Insulin C-Peptide Lactic Acid Calcium Ionized Calcium Phosphorus Magnesium AST ALT Alkaline Phosphatase Lactate Dehydrogenase NT-Pro-B Natriuret Pep Total Protein Albumin Arterial Blood Glucose Arterial Blood Ionized Calcium Urine pH Urine WBC (Auto) U Epithel Cells (Auto) Vancomycin Trough Phenytoin Crossmatch 10/31/20 10/31/20 11/01/20 03:20 05:43 04:55 WBC RBC Hgb Hct MCV MCH MCHC RDW Plt Count Lymph % (Auto) [place] % (Auto) Lymph # (Auto) [place] # (Auto) Baso # (Auto) Seg Neutrophils % Seg Neuts % (Manual) Lymphocytes % (Manual) Monocytes % (Manual) Nucleated RBC % Seg Neutrophils # Seg Neutrophils # Man Lymphocytes # (Manual) Monocytes # (Manual) PT INR APTT Fibrinogen D-Dimer ABG pH POC ABG pCO2 POC ABG pO2 ABG pO2 ABG HCO3 ABG Base Excess ABG Hemoglobin ABG Oxyhemoglobin ABG Sodium ABG Potassium ABG Chloride ABG Glucose VBG pH Oxyhemoglobin Carboxyhemoglobin Sodium Potassium Chloride Carbon Dioxide BUN Creatinine Glucose POC Glucose 108 H 115 H 108 H Random Insulin C-Peptide Lactic Acid Calcium Ionized Calcium Phosphorus Magnesium AST ALT Alkaline Phosphatase Lactate Dehydrogenase NT-Pro-B Natriuret Pep Total Protein Albumin Arterial Blood Glucose Arterial Blood Ionized Calcium Urine pH Urine WBC (Auto) U Epithel Cells (Auto) Vancomycin Trough Phenytoin Crossmatch 11/01/20 11/01/20 11/01/20 05:01 16:47 21:36 WBC RBC Hgb Hct MCV MCH MCHC RDW Plt Count Lymph % (Auto) [place] % (Auto) Lymph # (Auto) [place] # (Auto) Baso # (Auto) Seg Neutrophils % Seg Neuts % (Manual) Lymphocytes % (Manual) Monocytes % (Manual) Nucleated RBC % Seg Neutrophils # Seg Neutrophils # Man Lymphocytes # (Manual) Monocytes # (Manual) PT INR APTT Fibrinogen D-Dimer ABG pH POC ABG pCO2 POC ABG pO2 ABG pO2 ABG HCO3 ABG Base Excess ABG Hemoglobin ABG Oxyhemoglobin ABG Sodium ABG Potassium ABG Chloride ABG Glucose VBG pH Oxyhemoglobin Carboxyhemoglobin Sodium 135 L Potassium Chloride Carbon Dioxide BUN Creatinine Glucose POC Glucose 116 H 112 H Random Insulin C-Peptide Lactic Acid Calcium Ionized Calcium Phosphorus Magnesium AST 93 H ALT Alkaline Phosphatase 132 H Lactate Dehydrogenase NT-Pro-B Natriuret Pep Total Protein Albumin 3.6 L Arterial Blood Glucose Arterial Blood Ionized Calcium Urine pH Urine WBC (Auto) U Epithel Cells (Auto) Vancomycin Trough Phenytoin Crossmatch 11/02/20 11/02/20 11/02/20 17:45 19:19 19:19 WBC RBC Hgb Hct MCV MCH MCHC RDW Plt Count Lymph % (Auto) [place] % (Auto) Lymph # (Auto) [place] # (Auto) Baso # (Auto) Seg Neutrophils % Seg Neuts % (Manual) Lymphocytes % (Manual) Monocytes % (Manual) Nucleated RBC % Seg Neutrophils # Seg Neutrophils # Man Lymphocytes # (Manual) Monocytes # (Manual) PT INR APTT Fibrinogen D-Dimer ABG pH POC ABG pCO2 POC ABG pO2 ABG pO2 ABG HCO3 ABG Base Excess ABG Hemoglobin ABG Oxyhemoglobin ABG Sodium ABG Potassium ABG Chloride ABG Glucose VBG pH Oxyhemoglobin Carboxyhemoglobin Sodium Potassium Chloride Carbon Dioxide BUN Creatinine Glucose POC Glucose 107 H Random Insulin 43.2 H C-Peptide 6.23 H Lactic Acid Calcium Ionized Calcium Phosphorus Magnesium AST ALT Alkaline Phosphatase Lactate Dehydrogenase NT-Pro-B Natriuret Pep Total Protein Albumin Arterial Blood Glucose Arterial Blood Ionized Calcium Urine pH Urine WBC (Auto) U Epithel Cells (Auto) Vancomycin Trough Phenytoin Crossmatch 11/03/20 11/04/20 11/04/20 21:49 05:00 05:00 WBC 13.8 H RBC Hgb Hct MCV MCH MCHC RDW 16.6 H Plt Count Lymph % (Auto) 11.8 L [place] % (Auto) 11.0 H Lymph # (Auto) [place] # (Auto) 1.5 H Baso # (Auto) Seg Neutrophils % 75.1 H Seg Neuts % (Manual) Lymphocytes % (Manual) Monocytes % (Manual) Nucleated RBC % Seg Neutrophils # 10.4 H Seg Neutrophils # Man Lymphocytes # (Manual) Monocytes # (Manual) PT INR APTT Fibrinogen D-Dimer ABG pH POC ABG pCO2 POC ABG pO2 ABG pO2 ABG HCO3 ABG Base Excess ABG Hemoglobin ABG Oxyhemoglobin ABG Sodium ABG Potassium ABG Chloride ABG Glucose VBG pH Oxyhemoglobin Carboxyhemoglobin Sodium Potassium Chloride Carbon Dioxide BUN Creatinine Glucose 112 H POC Glucose 109 H Random Insulin C-Peptide Lactic Acid Calcium Ionized Calcium Phosphorus Magnesium AST 90 H ALT Alkaline Phosphatase Lactate Dehydrogenase NT-Pro-B Natriuret Pep Total Protein Albumin 3.8 L Arterial Blood Glucose Arterial Blood Ionized Calcium Urine pH Urine WBC (Auto) U Epithel Cells (Auto) Vancomycin Trough Phenytoin Crossmatch 11/04/20 11/04/20 11/05/20 06:03 23:47 07:47 WBC RBC Hgb Hct MCV MCH MCHC RDW Plt Count Lymph % (Auto) [place] % (Auto) Lymph # (Auto) [place] # (Auto) Baso # (Auto) Seg Neutrophils % Seg Neuts % (Manual) Lymphocytes % (Manual) Monocytes % (Manual) Nucleated RBC % Seg Neutrophils # Seg Neutrophils # Man Lymphocytes # (Manual) Monocytes # (Manual) PT INR APTT Fibrinogen D-Dimer ABG pH POC ABG pCO2 POC ABG pO2 ABG pO2 ABG HCO3 ABG Base Excess ABG Hemoglobin ABG Oxyhemoglobin ABG Sodium ABG Potassium ABG Chloride ABG Glucose VBG pH Oxyhemoglobin Carboxyhemoglobin Sodium Potassium Chloride Carbon Dioxide BUN Creatinine Glucose POC Glucose 107 H 121 H 111 H Random Insulin C-Peptide Lactic Acid Calcium Ionized Calcium Phosphorus Magnesium AST ALT Alkaline Phosphatase Lactate Dehydrogenase NT-Pro-B Natriuret Pep Total Protein Albumin Arterial Blood Glucose Arterial Blood Ionized Calcium Urine pH Urine WBC (Auto) U Epithel Cells (Auto) Vancomycin Trough Phenytoin Crossmatch 11/05/20 11/06/20 11/06/20 23:24 17:04 23:36 WBC RBC Hgb Hct MCV MCH MCHC RDW Plt Count Lymph % (Auto) [place] % (Auto) Lymph # (Auto) [place] # (Auto) Baso # (Auto) Seg Neutrophils % Seg Neuts % (Manual) Lymphocytes % (Manual) Monocytes % (Manual) Nucleated RBC % Seg Neutrophils # Seg Neutrophils # Man Lymphocytes # (Manual) Monocytes # (Manual) PT INR APTT Fibrinogen D-Dimer ABG pH POC ABG pCO2 POC ABG pO2 ABG pO2 ABG HCO3 ABG Base Excess ABG Hemoglobin ABG Oxyhemoglobin ABG Sodium ABG Potassium ABG Chloride ABG Glucose VBG pH Oxyhemoglobin Carboxyhemoglobin Sodium Potassium Chloride Carbon Dioxide BUN Creatinine Glucose POC Glucose 111 H 112 H 108 H Random Insulin C-Peptide Lactic Acid Calcium Ionized Calcium Phosphorus Magnesium AST ALT Alkaline Phosphatase Lactate Dehydrogenase NT-Pro-B Natriuret Pep Total Protein Albumin Arterial Blood Glucose Arterial Blood Ionized Calcium Urine pH Urine WBC (Auto) U Epithel Cells (Auto) Vancomycin Trough Phenytoin Crossmatch 11/07/20 11/07/20 11/07/20 03:33 04:44 04:44 WBC RBC Hgb Hct MCV MCH MCHC RDW 16.6 H Plt Count Lymph % (Auto) [place] % (Auto) 13.1 H Lymph # (Auto) [place] # (Auto) 1.3 H Baso # (Auto) Seg Neutrophils % Seg Neuts % (Manual) Lymphocytes % (Manual) Monocytes % (Manual) Nucleated RBC % Seg Neutrophils # Seg Neutrophils # Man Lymphocytes # (Manual) Monocytes # (Manual) PT INR APTT Fibrinogen D-Dimer ABG pH POC ABG pCO2 POC ABG pO2 ABG pO2 ABG HCO3 ABG Base Excess ABG Hemoglobin ABG Oxyhemoglobin ABG Sodium ABG Potassium ABG Chloride ABG Glucose VBG pH Oxyhemoglobin Carboxyhemoglobin Sodium Potassium Chloride Carbon Dioxide BUN Creatinine Glucose 103 H POC Glucose 109 H Random Insulin C-Peptide Lactic Acid Calcium Ionized Calcium Phosphorus 5.30 H Magnesium AST ALT Alkaline Phosphatase Lactate Dehydrogenase NT-Pro-B Natriuret Pep Total Protein Albumin Arterial Blood Glucose Arterial Blood Ionized Calcium Urine pH Urine WBC (Auto) U Epithel Cells (Auto) Vancomycin Trough Phenytoin Crossmatch 11/07/20 11/07/20 11/08/20 15:58 23:46 07:30 WBC RBC Hgb Hct MCV MCH MCHC RDW Plt Count Lymph % (Auto) [place] % (Auto) Lymph # (Auto) [place] # (Auto) Baso # (Auto) Seg Neutrophils % Seg Neuts % (Manual) Lymphocytes % (Manual) Monocytes % (Manual) Nucleated RBC % Seg Neutrophils # Seg Neutrophils # Man Lymphocytes # (Manual) Monocytes # (Manual) PT INR APTT Fibrinogen D-Dimer ABG pH POC ABG pCO2 POC ABG pO2 ABG pO2 ABG HCO3 ABG Base Excess ABG Hemoglobin ABG Oxyhemoglobin ABG Sodium ABG Potassium ABG Chloride ABG Glucose VBG pH Oxyhemoglobin Carboxyhemoglobin Sodium Potassium Chloride Carbon Dioxide BUN Creatinine Glucose POC Glucose 108 H 106 H 109 H Random Insulin C-Peptide Lactic Acid Calcium Ionized Calcium Phosphorus Magnesium AST ALT Alkaline Phosphatase Lactate Dehydrogenase NT-Pro-B Natriuret Pep Total Protein Albumin Arterial Blood Glucose Arterial Blood Ionized Calcium Urine pH Urine WBC (Auto) U Epithel Cells (Auto) Vancomycin Trough Phenytoin Crossmatch 11/08/20 11/08/20 11/09/20 11:48 23:32 17:10 WBC RBC Hgb Hct MCV MCH MCHC RDW Plt Count Lymph % (Auto) [place] % (Auto) Lymph # (Auto) [place] # (Auto) Baso # (Auto) Seg Neutrophils % Seg Neuts % (Manual) Lymphocytes % (Manual) Monocytes % (Manual) Nucleated RBC % Seg Neutrophils # Seg Neutrophils # Man Lymphocytes # (Manual) Monocytes # (Manual) PT INR APTT Fibrinogen D-Dimer ABG pH POC ABG pCO2 POC ABG pO2 ABG pO2 ABG HCO3 ABG Base Excess ABG Hemoglobin ABG Oxyhemoglobin ABG Sodium ABG Potassium ABG Chloride ABG Glucose VBG pH Oxyhemoglobin Carboxyhemoglobin Sodium Potassium Chloride Carbon Dioxide BUN Creatinine Glucose POC Glucose 110 H 116 H 112 H Random Insulin C-Peptide Lactic Acid Calcium Ionized Calcium Phosphorus Magnesium AST ALT Alkaline Phosphatase Lactate Dehydrogenase NT-Pro-B Natriuret Pep Total Protein Albumin Arterial Blood Glucose Arterial Blood Ionized Calcium Urine pH Urine WBC (Auto) U Epithel Cells (Auto) Vancomycin Trough Phenytoin Crossmatch 11/09/20 11/10/20 11/10/20 21:42 05:49 07:17 WBC RBC Hgb Hct MCV MCH MCHC RDW Plt Count Lymph % (Auto) [place] % (Auto) Lymph # (Auto) [place] # (Auto) Baso # (Auto) Seg Neutrophils % Seg Neuts % (Manual) Lymphocytes % (Manual) Monocytes % (Manual) Nucleated RBC % Seg Neutrophils # Seg Neutrophils # Man Lymphocytes # (Manual) Monocytes # (Manual) PT INR APTT Fibrinogen D-Dimer ABG pH POC ABG pCO2 POC ABG pO2 ABG pO2 ABG HCO3 ABG Base Excess ABG Hemoglobin ABG Oxyhemoglobin ABG Sodium ABG Potassium ABG Chloride ABG Glucose VBG pH Oxyhemoglobin Carboxyhemoglobin Sodium Potassium Chloride Carbon Dioxide BUN Creatinine Glucose POC Glucose 110 H 108 H 111 H Random Insulin C-Peptide Lactic Acid Calcium Ionized Calcium Phosphorus Magnesium AST ALT Alkaline Phosphatase Lactate Dehydrogenase NT-Pro-B Natriuret Pep Total Protein Albumin Arterial Blood Glucose Arterial Blood Ionized Calcium Urine pH Urine WBC (Auto) U Epithel Cells (Auto) Vancomycin Trough Phenytoin Crossmatch 11/10/20 11/11/20 11/11/20 20:36 04:58 11:56 WBC RBC Hgb Hct MCV MCH MCHC RDW Plt Count Lymph % (Auto) [place] % (Auto) Lymph # (Auto) [place] # (Auto) Baso # (Auto) Seg Neutrophils % Seg Neuts % (Manual) Lymphocytes % (Manual) Monocytes % (Manual) Nucleated RBC % Seg Neutrophils # Seg Neutrophils # Man Lymphocytes # (Manual) Monocytes # (Manual) PT INR APTT Fibrinogen D-Dimer ABG pH POC ABG pCO2 POC ABG pO2 ABG pO2 ABG HCO3 ABG Base Excess ABG Hemoglobin ABG Oxyhemoglobin ABG Sodium ABG Potassium ABG Chloride ABG Glucose VBG pH Oxyhemoglobin Carboxyhemoglobin Sodium Potassium Chloride Carbon Dioxide BUN Creatinine Glucose POC Glucose 111 H 109 H 109 H Random Insulin C-Peptide Lactic Acid Calcium Ionized Calcium Phosphorus Magnesium AST ALT Alkaline Phosphatase Lactate Dehydrogenase NT-Pro-B Natriuret Pep Total Protein Albumin Arterial Blood Glucose Arterial Blood Ionized Calcium Urine pH Urine WBC (Auto) U Epithel Cells (Auto) Vancomycin Trough Phenytoin Crossmatch 11/11/20 11/11/20 11/11/20 13:50 13:50 15:50 WBC RBC Hgb Hct MCV MCH MCHC RDW Plt Count Lymph % (Auto) [place] % (Auto) Lymph # (Auto) [place] # (Auto) Baso # (Auto) Seg Neutrophils % Seg Neuts % (Manual) Lymphocytes % (Manual) Monocytes % (Manual) Nucleated RBC % Seg Neutrophils # Seg Neutrophils # Man Lymphocytes # (Manual) Monocytes # (Manual) PT INR APTT Fibrinogen D-Dimer 1974.47 H ABG pH POC ABG pCO2 POC ABG pO2 ABG pO2 ABG HCO3 ABG Base Excess ABG Hemoglobin ABG Oxyhemoglobin ABG Sodium ABG Potassium ABG Chloride ABG Glucose VBG pH Oxyhemoglobin Carboxyhemoglobin Sodium Potassium Chloride Carbon Dioxide BUN Creatinine Glucose POC Glucose 107 H Random Insulin C-Peptide Lactic Acid Calcium Ionized Calcium Phosphorus Magnesium AST ALT Alkaline Phosphatase Lactate Dehydrogenase NT-Pro-B Natriuret Pep Total Protein Albumin Arterial Blood Glucose Arterial Blood Ionized Calcium Urine pH Urine WBC (Auto) > 182.0 H U Epithel Cells (Auto) Vancomycin Trough Phenytoin Crossmatch 11/11/20 11/12/20 11/12/20 23:17 11:33 22:20 WBC RBC Hgb Hct MCV MCH MCHC RDW Plt Count Lymph % (Auto) [place] % (Auto) Lymph # (Auto) [place] # (Auto) Baso # (Auto) Seg Neutrophils % Seg Neuts % (Manual) Lymphocytes % (Manual) Monocytes % (Manual) Nucleated RBC % Seg Neutrophils # Seg Neutrophils # Man Lymphocytes # (Manual) Monocytes # (Manual) PT INR APTT Fibrinogen D-Dimer ABG pH POC ABG pCO2 POC ABG pO2 ABG pO2 ABG HCO3 ABG Base Excess ABG Hemoglobin ABG Oxyhemoglobin ABG Sodium ABG Potassium ABG Chloride ABG Glucose VBG pH Oxyhemoglobin Carboxyhemoglobin Sodium Potassium Chloride Carbon Dioxide BUN Creatinine Glucose POC Glucose 119 H 111 H 107 H Random Insulin C-Peptide Lactic Acid Calcium Ionized Calcium Phosphorus Magnesium AST ALT Alkaline Phosphatase Lactate Dehydrogenase NT-Pro-B Natriuret Pep Total Protein Albumin Arterial Blood Glucose Arterial Blood Ionized Calcium Urine pH Urine WBC (Auto) U Epithel Cells (Auto) Vancomycin Trough Phenytoin Crossmatch 11/13/20 11/13/20 11/13/20 01:52 07:33 10:05 WBC RBC Hgb Hct MCV MCH MCHC RDW Plt Count Lymph % (Auto) [place] % (Auto) Lymph # (Auto) [place] # (Auto) Baso # (Auto) Seg Neutrophils % Seg Neuts % (Manual) Lymphocytes % (Manual) Monocytes % (Manual) Nucleated RBC % Seg Neutrophils # Seg Neutrophils # Man Lymphocytes # (Manual) Monocytes # (Manual) PT INR APTT Fibrinogen D-Dimer ABG pH POC ABG pCO2 POC ABG pO2 ABG pO2 ABG HCO3 ABG Base Excess ABG Hemoglobin ABG Oxyhemoglobin ABG Sodium ABG Potassium ABG Chloride ABG Glucose VBG pH Oxyhemoglobin Carboxyhemoglobin Sodium Potassium Chloride Carbon Dioxide BUN Creatinine Glucose 114 H POC Glucose 124 H 106 H Random Insulin C-Peptide Lactic Acid Calcium Ionized Calcium Phosphorus 4.60 H Magnesium AST ALT Alkaline Phosphatase Lactate Dehydrogenase NT-Pro-B Natriuret Pep Total Protein Albumin Arterial Blood Glucose Arterial Blood Ionized Calcium Urine pH Urine WBC (Auto) U Epithel Cells (Auto) Vancomycin Trough Phenytoin Crossmatch 11/13/20 11/13/20 11/14/20 11:50 17:20 05:26 WBC RBC Hgb Hct MCV MCH MCHC RDW Plt Count Lymph % (Auto) [place] % (Auto) Lymph # (Auto) [place] # (Auto) Baso # (Auto) Seg Neutrophils % Seg Neuts % (Manual) Lymphocytes % (Manual) Monocytes % (Manual) Nucleated RBC % Seg Neutrophils # Seg Neutrophils # Man Lymphocytes # (Manual) Monocytes # (Manual) PT INR APTT Fibrinogen D-Dimer ABG pH POC ABG pCO2 POC ABG pO2 ABG pO2 ABG HCO3 ABG Base Excess ABG Hemoglobin ABG Oxyhemoglobin ABG Sodium ABG Potassium ABG Chloride ABG Glucose VBG pH Oxyhemoglobin Carboxyhemoglobin Sodium Potassium Chloride Carbon Dioxide BUN Creatinine Glucose POC Glucose 113 H 110 H 110 H Random Insulin C-Peptide Lactic Acid Calcium Ionized Calcium Phosphorus Magnesium AST ALT Alkaline Phosphatase Lactate Dehydrogenase NT-Pro-B Natriuret Pep Total Protein Albumin Arterial Blood Glucose Arterial Blood Ionized Calcium Urine pH Urine WBC (Auto) U Epithel Cells (Auto) Vancomycin Trough Phenytoin Crossmatch 11/14/20 11/15/20 11/15/20 23:23 05:07 11:48 WBC RBC Hgb Hct MCV MCH MCHC RDW Plt Count Lymph % (Auto) [place] % (Auto) Lymph # (Auto) [place] # (Auto) Baso # (Auto) Seg Neutrophils % Seg Neuts % (Manual) Lymphocytes % (Manual) Monocytes % (Manual) Nucleated RBC % Seg Neutrophils # Seg Neutrophils # Man Lymphocytes # (Manual) Monocytes # (Manual) PT INR APTT Fibrinogen D-Dimer ABG pH POC ABG pCO2 POC ABG pO2 ABG pO2 ABG HCO3 ABG Base Excess ABG Hemoglobin ABG Oxyhemoglobin ABG Sodium ABG Potassium ABG Chloride ABG Glucose VBG pH Oxyhemoglobin Carboxyhemoglobin Sodium Potassium Chloride Carbon Dioxide BUN Creatinine Glucose POC Glucose 112 H 115 H 114 H Random Insulin C-Peptide Lactic Acid Calcium Ionized Calcium Phosphorus Magnesium AST ALT Alkaline Phosphatase Lactate Dehydrogenase NT-Pro-B Natriuret Pep Total Protein Albumin Arterial Blood Glucose Arterial Blood Ionized Calcium Urine pH Urine WBC (Auto) U Epithel Cells (Auto) Vancomycin Trough Phenytoin Crossmatch 11/16/20 11/17/20 11/18/20 05:06 00:17 05:04 WBC RBC Hgb Hct MCV MCH MCHC RDW Plt Count Lymph % (Auto) [place] % (Auto) Lymph # (Auto) [place] # (Auto) Baso # (Auto) Seg Neutrophils % Seg Neuts % (Manual) Lymphocytes % (Manual) Monocytes % (Manual) Nucleated RBC % Seg Neutrophils # Seg Neutrophils # Man Lymphocytes # (Manual) Monocytes # (Manual) PT INR APTT Fibrinogen D-Dimer ABG pH POC ABG pCO2 POC ABG pO2 ABG pO2 ABG HCO3 ABG Base Excess ABG Hemoglobin ABG Oxyhemoglobin ABG Sodium ABG Potassium ABG Chloride ABG Glucose VBG pH Oxyhemoglobin Carboxyhemoglobin Sodium Potassium Chloride Carbon Dioxide BUN Creatinine Glucose POC Glucose 110 H 115 H 111 H Random Insulin C-Peptide Lactic Acid Calcium Ionized Calcium Phosphorus Magnesium AST ALT Alkaline Phosphatase Lactate Dehydrogenase NT-Pro-B Natriuret Pep Total Protein Albumin Arterial Blood Glucose Arterial Blood Ionized Calcium Urine pH Urine WBC (Auto) U Epithel Cells (Auto) Vancomycin Trough Phenytoin Crossmatch 11/21/20 11/21/20 11/21/20 00:04 05:51 23:26 WBC RBC Hgb Hct MCV MCH MCHC RDW Plt Count Lymph % (Auto) [place] % (Auto) Lymph # (Auto) [place] # (Auto) Baso # (Auto) Seg Neutrophils % Seg Neuts % (Manual) Lymphocytes % (Manual) Monocytes % (Manual) Nucleated RBC % Seg Neutrophils # Seg Neutrophils # Man Lymphocytes # (Manual) Monocytes # (Manual) PT INR APTT Fibrinogen D-Dimer ABG pH POC ABG pCO2 POC ABG pO2 ABG pO2 ABG HCO3 ABG Base Excess ABG Hemoglobin ABG Oxyhemoglobin ABG Sodium ABG Potassium ABG Chloride ABG Glucose VBG pH Oxyhemoglobin Carboxyhemoglobin Sodium Potassium Chloride Carbon Dioxide BUN Creatinine Glucose POC Glucose 117 H 112 H 107 H Random Insulin C-Peptide Lactic Acid Calcium Ionized Calcium Phosphorus Magnesium AST ALT Alkaline Phosphatase Lactate Dehydrogenase NT-Pro-B Natriuret Pep Total Protein Albumin Arterial Blood Glucose Arterial Blood Ionized Calcium Urine pH Urine WBC (Auto) U Epithel Cells (Auto) Vancomycin Trough Phenytoin Crossmatch 11/22/20 11/22/20 11/22/20 05:24 11:59 23:19 WBC RBC Hgb Hct MCV MCH MCHC RDW Plt Count Lymph % (Auto) [place] % (Auto) Lymph # (Auto) [place] # (Auto) Baso # (Auto) Seg Neutrophils % Seg Neuts % (Manual) Lymphocytes % (Manual) Monocytes % (Manual) Nucleated RBC % Seg Neutrophils # Seg Neutrophils # Man Lymphocytes # (Manual) Monocytes # (Manual) PT INR APTT Fibrinogen D-Dimer ABG pH POC ABG pCO2 POC ABG pO2 ABG pO2 ABG HCO3 ABG Base Excess ABG Hemoglobin ABG Oxyhemoglobin ABG Sodium ABG Potassium ABG Chloride ABG Glucose VBG pH Oxyhemoglobin Carboxyhemoglobin Sodium Potassium Chloride Carbon Dioxide BUN Creatinine Glucose POC Glucose 120 H 111 H 112 H Random Insulin C-Peptide Lactic Acid Calcium Ionized Calcium Phosphorus Magnesium AST ALT Alkaline Phosphatase Lactate Dehydrogenase NT-Pro-B Natriuret Pep Total Protein Albumin Arterial Blood Glucose Arterial Blood Ionized Calcium Urine pH Urine WBC (Auto) U Epithel Cells (Auto) Vancomycin Trough Phenytoin Crossmatch 11/23/20 11/24/20 11/24/20 23:42 05:33 12:04 WBC RBC Hgb Hct MCV MCH MCHC RDW Plt Count Lymph % (Auto) [place] % (Auto) Lymph # (Auto) [place] # (Auto) Baso # (Auto) Seg Neutrophils % Seg Neuts % (Manual) Lymphocytes % (Manual) Monocytes % (Manual) Nucleated RBC % Seg Neutrophils # Seg Neutrophils # Man Lymphocytes # (Manual) Monocytes # (Manual) PT INR APTT Fibrinogen D-Dimer ABG pH POC ABG pCO2 POC ABG pO2 ABG pO2 ABG HCO3 ABG Base Excess ABG Hemoglobin ABG Oxyhemoglobin ABG Sodium ABG Potassium ABG Chloride ABG Glucose VBG pH Oxyhemoglobin Carboxyhemoglobin Sodium Potassium Chloride Carbon Dioxide BUN Creatinine Glucose POC Glucose 111 H 108 H 118 H Random Insulin C-Peptide Lactic Acid Calcium Ionized Calcium Phosphorus Magnesium AST ALT Alkaline Phosphatase Lactate Dehydrogenase NT-Pro-B Natriuret Pep Total Protein Albumin Arterial Blood Glucose Arterial Blood Ionized Calcium Urine pH Urine WBC (Auto) U Epithel Cells (Auto) Vancomycin Trough Phenytoin Crossmatch 11/25/20 11/26/20 11/26/20 23:11 04:37 04:37 WBC RBC Hgb Hct MCV MCH MCHC RDW 15.4 H Plt Count Lymph % (Auto) [place] % (Auto) 10.1 H Lymph # (Auto) [place] # (Auto) 1.0 H Baso # (Auto) Seg Neutrophils % Seg Neuts % (Manual) Lymphocytes % (Manual) Monocytes % (Manual) Nucleated RBC % Seg Neutrophils # Seg Neutrophils # Man Lymphocytes # (Manual) Monocytes # (Manual) PT INR APTT Fibrinogen D-Dimer ABG pH POC ABG pCO2 POC ABG pO2 ABG pO2 ABG HCO3 ABG Base Excess ABG Hemoglobin ABG Oxyhemoglobin ABG Sodium ABG Potassium ABG Chloride ABG Glucose VBG pH Oxyhemoglobin Carboxyhemoglobin Sodium Potassium Chloride Carbon Dioxide BUN Creatinine Glucose 109 H POC Glucose 115 H Random Insulin C-Peptide Lactic Acid Calcium Ionized Calcium Phosphorus Magnesium AST 51 H ALT Alkaline Phosphatase Lactate Dehydrogenase NT-Pro-B Natriuret Pep Total Protein Albumin Arterial Blood Glucose Arterial Blood Ionized Calcium Urine pH Urine WBC (Auto) U Epithel Cells (Auto) Vancomycin Trough Phenytoin Crossmatch 11/26/20 11/27/20 11/28/20 23:27 23:38 05:25 WBC RBC Hgb Hct MCV MCH MCHC RDW Plt Count Lymph % (Auto) [place] % (Auto) Lymph # (Auto) [place] # (Auto) Baso # (Auto) Seg Neutrophils % Seg Neuts % (Manual) Lymphocytes % (Manual) Monocytes % (Manual) Nucleated RBC % Seg Neutrophils # Seg Neutrophils # Man Lymphocytes # (Manual) Monocytes # (Manual) PT INR APTT Fibrinogen D-Dimer ABG pH POC ABG pCO2 POC ABG pO2 ABG pO2 ABG HCO3 ABG Base Excess ABG Hemoglobin ABG Oxyhemoglobin ABG Sodium ABG Potassium ABG Chloride ABG Glucose VBG pH Oxyhemoglobin Carboxyhemoglobin Sodium Potassium Chloride Carbon Dioxide BUN Creatinine Glucose POC Glucose 115 H 111 H 107 H Random Insulin C-Peptide Lactic Acid Calcium Ionized Calcium Phosphorus Magnesium AST ALT Alkaline Phosphatase Lactate Dehydrogenase NT-Pro-B Natriuret Pep Total Protein Albumin Arterial Blood Glucose Arterial Blood Ionized Calcium Urine pH Urine WBC (Auto) U Epithel Cells (Auto) Vancomycin Trough Phenytoin Crossmatch 11/28/20 11/29/20 11/29/20 11:45 23:38 23:46 WBC RBC Hgb Hct MCV MCH MCHC RDW Plt Count Lymph % (Auto) [place] % (Auto) Lymph # (Auto) [place] # (Auto) Baso # (Auto) Seg Neutrophils % Seg Neuts % (Manual) Lymphocytes % (Manual) Monocytes % (Manual) Nucleated RBC % Seg Neutrophils # Seg Neutrophils # Man Lymphocytes # (Manual) Monocytes # (Manual) PT INR APTT Fibrinogen D-Dimer ABG pH POC ABG pCO2 POC ABG pO2 ABG pO2 ABG HCO3 ABG Base Excess ABG Hemoglobin ABG Oxyhemoglobin ABG Sodium ABG Potassium ABG Chloride ABG Glucose VBG pH Oxyhemoglobin Carboxyhemoglobin Sodium Potassium Chloride Carbon Dioxide BUN Creatinine Glucose POC Glucose 112 H 109 H 117 H Random Insulin C-Peptide Lactic Acid Calcium Ionized Calcium Phosphorus Magnesium AST ALT Alkaline Phosphatase Lactate Dehydrogenase NT-Pro-B Natriuret Pep Total Protein Albumin Arterial Blood Glucose Arterial Blood Ionized Calcium Urine pH Urine WBC (Auto) U Epithel Cells (Auto) Vancomycin Trough Phenytoin Crossmatch 12/01/20 12/01/20 12/02/20 05:52 16:54 05:11 WBC RBC Hgb Hct MCV MCH MCHC RDW Plt Count Lymph % (Auto) [place] % (Auto) Lymph # (Auto) [place] # (Auto) Baso # (Auto) Seg Neutrophils % Seg Neuts % (Manual) Lymphocytes % (Manual) Monocytes % (Manual) Nucleated RBC % Seg Neutrophils # Seg Neutrophils # Man Lymphocytes # (Manual) Monocytes # (Manual) PT INR APTT Fibrinogen D-Dimer ABG pH POC ABG pCO2 POC ABG pO2 ABG pO2 ABG HCO3 ABG Base Excess ABG Hemoglobin ABG Oxyhemoglobin ABG Sodium ABG Potassium ABG Chloride ABG Glucose VBG pH Oxyhemoglobin Carboxyhemoglobin Sodium Potassium Chloride Carbon Dioxide BUN Creatinine Glucose POC Glucose 106 H 108 H 110 H Random Insulin C-Peptide Lactic Acid Calcium Ionized Calcium Phosphorus Magnesium AST ALT Alkaline Phosphatase Lactate Dehydrogenase NT-Pro-B Natriuret Pep Total Protein Albumin Arterial Blood Glucose Arterial Blood Ionized Calcium Urine pH Urine WBC (Auto) U Epithel Cells (Auto) Vancomycin Trough Phenytoin Crossmatch 12/02/20 12/02/20 12/03/20 18:01 23:49 05:36 WBC RBC Hgb Hct MCV MCH MCHC RDW Plt Count Lymph % (Auto) [place] % (Auto) Lymph # (Auto) [place] # (Auto) Baso # (Auto) Seg Neutrophils % Seg Neuts % (Manual) Lymphocytes % (Manual) Monocytes % (Manual) Nucleated RBC % Seg Neutrophils # Seg Neutrophils # Man Lymphocytes # (Manual) Monocytes # (Manual) PT INR APTT Fibrinogen D-Dimer ABG pH POC ABG pCO2 POC ABG pO2 ABG pO2 ABG HCO3 ABG Base Excess ABG Hemoglobin ABG Oxyhemoglobin ABG Sodium ABG Potassium ABG Chloride ABG Glucose VBG pH Oxyhemoglobin Carboxyhemoglobin Sodium Potassium Chloride Carbon Dioxide BUN Creatinine Glucose POC Glucose 120 H 111 H 109 H Random Insulin C-Peptide Lactic Acid Calcium Ionized Calcium Phosphorus Magnesium AST ALT Alkaline Phosphatase Lactate Dehydrogenase NT-Pro-B Natriuret Pep Total Protein Albumin Arterial Blood Glucose Arterial Blood Ionized Calcium Urine pH Urine WBC (Auto) U Epithel Cells (Auto) Vancomycin Trough Phenytoin Crossmatch 12/03/20 12/09/20 12/10/20 10:50 05:32 09:25 WBC RBC Hgb Hct MCV MCH MCHC RDW Plt Count Lymph % (Auto) [place] % (Auto) Lymph # (Auto) [place] # (Auto) Baso # (Auto) Seg Neutrophils % Seg Neuts % (Manual) Lymphocytes % (Manual) Monocytes % (Manual) Nucleated RBC % Seg Neutrophils # Seg Neutrophils # Man Lymphocytes # (Manual) Monocytes # (Manual) PT INR APTT Fibrinogen D-Dimer ABG pH POC ABG pCO2 POC ABG pO2 ABG pO2 ABG HCO3 ABG Base Excess ABG Hemoglobin ABG Oxyhemoglobin ABG Sodium ABG Potassium ABG Chloride ABG Glucose VBG pH Oxyhemoglobin Carboxyhemoglobin Sodium Potassium Chloride Carbon Dioxide BUN Creatinine Glucose POC Glucose 110 H 114 H Random Insulin C-Peptide Lactic Acid Calcium Ionized Calcium Phosphorus Magnesium AST ALT Alkaline Phosphatase Lactate Dehydrogenase NT-Pro-B Natriuret Pep Total Protein Albumin Arterial Blood Glucose Arterial Blood Ionized Calcium Urine pH Urine WBC (Auto) 50.0 H U Epithel Cells (Auto) Vancomycin Trough Phenytoin Crossmatch 12/10/20 12/10/20 12/13/20 09:37 09:37 05:12 WBC 12.5 H RBC Hgb Hct MCV MCH 26 L MCHC RDW Plt Count Lymph % (Auto) [place] % (Auto) Lymph # (Auto) [place] # (Auto) Baso # (Auto) Seg Neutrophils % Seg Neuts % (Manual) 81.0 H Lymphocytes % (Manual) Monocytes % (Manual) Nucleated RBC % Seg Neutrophils # Seg Neutrophils # Man 10.1 H Lymphocytes # (Manual) Monocytes # (Manual) PT INR APTT Fibrinogen D-Dimer ABG pH POC ABG pCO2 POC ABG pO2 ABG pO2 ABG HCO3 ABG Base Excess ABG Hemoglobin ABG Oxyhemoglobin ABG Sodium ABG Potassium ABG Chloride ABG Glucose VBG pH Oxyhemoglobin Carboxyhemoglobin Sodium 149 H Potassium Chloride 109.9 H Carbon Dioxide BUN 19 H Creatinine Glucose 105 H POC Glucose 112 H Random Insulin C-Peptide Lactic Acid Calcium Ionized Calcium Phosphorus Magnesium AST ALT Alkaline Phosphatase Lactate Dehydrogenase NT-Pro-B Natriuret Pep Total Protein Albumin Arterial Blood Glucose Arterial Blood Ionized Calcium Urine pH Urine WBC (Auto) U Epithel Cells (Auto) Vancomycin Trough Phenytoin Crossmatch 12/14/20 12/14/20 12/14/20 05:02 09:06 10:32 WBC RBC 5.30 H Hgb Hct 43.0 H MCV MCH 25 L MCHC RDW Plt Count Lymph % (Auto) [place] % (Auto) 7.8 H Lymph # (Auto) [place] # (Auto) Baso # (Auto) Seg Neutrophils % Seg Neuts % (Manual) Lymphocytes % (Manual) Monocytes % (Manual) Nucleated RBC % Seg Neutrophils # Seg Neutrophils # Man Lymphocytes # (Manual) Monocytes # (Manual) PT INR APTT Fibrinogen D-Dimer ABG pH POC ABG pCO2 POC ABG pO2 ABG pO2 ABG HCO3 ABG Base Excess ABG Hemoglobin ABG Oxyhemoglobin ABG Sodium ABG Potassium ABG Chloride ABG Glucose VBG pH Oxyhemoglobin Carboxyhemoglobin Sodium 155 H Potassium Chloride 117.2 H Carbon Dioxide BUN 21 H Creatinine Glucose 104 H POC Glucose 109 H Random Insulin C-Peptide Lactic Acid Calcium Ionized Calcium Phosphorus Magnesium AST 63 H ALT Alkaline Phosphatase Lactate Dehydrogenase NT-Pro-B Natriuret Pep Total Protein 8.3 H Albumin 3.8 L Arterial Blood Glucose Arterial Blood Ionized Calcium Urine pH Urine WBC (Auto) U Epithel Cells (Auto) Vancomycin Trough Phenytoin Crossmatch 12/15/20 12/15/20 12/16/20 05:40 11:56 05:42 WBC RBC Hgb Hct MCV MCH MCHC RDW Plt Count Lymph % (Auto) [place] % (Auto) Lymph # (Auto) [place] # (Auto) Baso # (Auto) Seg Neutrophils % Seg Neuts % (Manual) Lymphocytes % (Manual) Monocytes % (Manual) Nucleated RBC % Seg Neutrophils # Seg Neutrophils # Man Lymphocytes # (Manual) Monocytes # (Manual) PT INR APTT Fibrinogen D-Dimer ABG pH POC ABG pCO2 POC ABG pO2 ABG pO2 ABG HCO3 ABG Base Excess ABG Hemoglobin ABG Oxyhemoglobin ABG Sodium ABG Potassium ABG Chloride ABG Glucose VBG pH Oxyhemoglobin Carboxyhemoglobin Sodium Potassium Chloride Carbon Dioxide BUN Creatinine Glucose POC Glucose 125 H 107 H 108 H Random Insulin C-Peptide Lactic Acid Calcium Ionized Calcium Phosphorus Magnesium AST ALT Alkaline Phosphatase Lactate Dehydrogenase NT-Pro-B Natriuret Pep Total Protein Albumin Arterial Blood Glucose Arterial Blood Ionized Calcium Urine pH Urine WBC (Auto) U Epithel Cells (Auto) Vancomycin Trough Phenytoin Crossmatch 12/16/20 12/16/20 12/17/20 08:00 23:26 05:49 WBC RBC Hgb Hct MCV MCH MCHC RDW Plt Count Lymph % (Auto) [place] % (Auto) Lymph # (Auto) [place] # (Auto) Baso # (Auto) Seg Neutrophils % Seg Neuts % (Manual) Lymphocytes % (Manual) Monocytes % (Manual) Nucleated RBC % Seg Neutrophils # Seg Neutrophils # Man Lymphocytes # (Manual) Monocytes # (Manual) PT INR APTT Fibrinogen D-Dimer ABG pH POC ABG pCO2 POC ABG pO2 ABG pO2 ABG HCO3 ABG Base Excess ABG Hemoglobin ABG Oxyhemoglobin ABG Sodium ABG Potassium ABG Chloride ABG Glucose VBG pH Oxyhemoglobin Carboxyhemoglobin Sodium 156 H Potassium Chloride 117.9 H Carbon Dioxide BUN 24 H Creatinine Glucose 109 H POC Glucose 111 H 109 H Random Insulin C-Peptide Lactic Acid Calcium Ionized Calcium Phosphorus Magnesium AST ALT Alkaline Phosphatase Lactate Dehydrogenase NT-Pro-B Natriuret Pep Total Protein Albumin Arterial Blood Glucose Arterial Blood Ionized Calcium Urine pH Urine WBC (Auto) U Epithel Cells (Auto) Vancomycin Trough Phenytoin Crossmatch 12/17/20 12/17/20 12/18/20 11:41 23:27 04:57 WBC RBC 5.16 H Hgb Hct MCV MCH 25 L MCHC RDW Plt Count Lymph % (Auto) [place] % (Auto) Lymph # (Auto) [place] # (Auto) Baso # (Auto) Seg Neutrophils % Seg Neuts % (Manual) Lymphocytes % (Manual) Monocytes % (Manual) Nucleated RBC % Seg Neutrophils # Seg Neutrophils # Man Lymphocytes # (Manual) Monocytes # (Manual) PT INR APTT Fibrinogen D-Dimer ABG pH POC ABG pCO2 POC ABG pO2 ABG pO2 ABG HCO3 ABG Base Excess ABG Hemoglobin ABG Oxyhemoglobin ABG Sodium ABG Potassium ABG Chloride ABG Glucose VBG pH Oxyhemoglobin Carboxyhemoglobin Sodium Potassium Chloride Carbon Dioxide BUN Creatinine Glucose POC Glucose 108 H 108 H Random Insulin C-Peptide Lactic Acid Calcium Ionized Calcium Phosphorus Magnesium AST ALT Alkaline Phosphatase Lactate Dehydrogenase NT-Pro-B Natriuret Pep Total Protein Albumin Arterial Blood Glucose Arterial Blood Ionized Calcium Urine pH Urine WBC (Auto) U Epithel Cells (Auto) Vancomycin Trough Phenytoin Crossmatch 12/18/20 12/18/20 12/19/20 04:57 11:22 05:21 WBC RBC Hgb Hct MCV MCH MCHC RDW Plt Count Lymph % (Auto) [place] % (Auto) Lymph # (Auto) [place] # (Auto) Baso # (Auto) Seg Neutrophils % Seg Neuts % (Manual) Lymphocytes % (Manual) Monocytes % (Manual) Nucleated RBC % Seg Neutrophils # Seg Neutrophils # Man Lymphocytes # (Manual) Monocytes # (Manual) PT INR APTT Fibrinogen D-Dimer ABG pH POC ABG pCO2 POC ABG pO2 ABG pO2 ABG HCO3 ABG Base Excess ABG Hemoglobin ABG Oxyhemoglobin ABG Sodium ABG Potassium ABG Chloride ABG Glucose VBG pH Oxyhemoglobin Carboxyhemoglobin Sodium 150 H Potassium Chloride 110.8 H Carbon Dioxide BUN 20 H Creatinine Glucose POC Glucose 107 H 108 H Random Insulin C-Peptide Lactic Acid Calcium Ionized Calcium Phosphorus Magnesium AST ALT Alkaline Phosphatase Lactate Dehydrogenase NT-Pro-B Natriuret Pep Total Protein Albumin Arterial Blood Glucose Arterial Blood Ionized Calcium Urine pH Urine WBC (Auto) U Epithel Cells (Auto) Vancomycin Trough Phenytoin Crossmatch 12/19/20 12/20/20 12/22/20 23:28 23:54 11:03 WBC RBC Hgb Hct MCV MCH MCHC RDW Plt Count Lymph % (Auto) [place] % (Auto) Lymph # (Auto) [place] # (Auto) Baso # (Auto) Seg Neutrophils % Seg Neuts % (Manual) Lymphocytes % (Manual) Monocytes % (Manual) Nucleated RBC % Seg Neutrophils # Seg Neutrophils # Man Lymphocytes # (Manual) Monocytes # (Manual) PT INR APTT Fibrinogen D-Dimer ABG pH POC ABG pCO2 POC ABG pO2 ABG pO2 ABG HCO3 ABG Base Excess ABG Hemoglobin ABG Oxyhemoglobin ABG Sodium ABG Potassium ABG Chloride ABG Glucose VBG pH Oxyhemoglobin Carboxyhemoglobin Sodium Potassium Chloride Carbon Dioxide BUN Creatinine 0.5 L Glucose 110 H POC Glucose 128 H 108 H Random Insulin C-Peptide Lactic Acid Calcium Ionized Calcium Phosphorus Magnesium AST 45 H ALT Alkaline Phosphatase Lactate Dehydrogenase NT-Pro-B Natriuret Pep Total Protein Albumin 3.8 L Arterial Blood Glucose Arterial Blood Ionized Calcium Urine pH Urine WBC (Auto) U Epithel Cells (Auto) Vancomycin Trough Phenytoin Crossmatch 12/23/20 12/23/20 12/25/20 16:50 23:30 00:34 WBC RBC Hgb Hct MCV MCH MCHC RDW Plt Count Lymph % (Auto) [place] % (Auto) Lymph # (Auto) [place] # (Auto) Baso # (Auto) Seg Neutrophils % Seg Neuts % (Manual) Lymphocytes % (Manual) Monocytes % (Manual) Nucleated RBC % Seg Neutrophils # Seg Neutrophils # Man Lymphocytes # (Manual) Monocytes # (Manual) PT INR APTT Fibrinogen D-Dimer ABG pH POC ABG pCO2 POC ABG pO2 ABG pO2 ABG HCO3 ABG Base Excess ABG Hemoglobin ABG Oxyhemoglobin ABG Sodium ABG Potassium ABG Chloride ABG Glucose VBG pH Oxyhemoglobin Carboxyhemoglobin Sodium Potassium Chloride Carbon Dioxide BUN Creatinine Glucose POC Glucose 115 H 111 H 106 H Random Insulin C-Peptide Lactic Acid Calcium Ionized Calcium Phosphorus Magnesium AST ALT Alkaline Phosphatase Lactate Dehydrogenase NT-Pro-B Natriuret Pep Total Protein Albumin Arterial Blood Glucose Arterial Blood Ionized Calcium Urine pH Urine WBC (Auto) U Epithel Cells (Auto) Vancomycin Trough Phenytoin Crossmatch 12/26/20 12/26/20 12/26/20 06:14 11:49 23:00 WBC RBC Hgb Hct MCV MCH MCHC RDW Plt Count Lymph % (Auto) [place] % (Auto) Lymph # (Auto) [place] # (Auto) Baso # (Auto) Seg Neutrophils % Seg Neuts % (Manual) Lymphocytes % (Manual) Monocytes % (Manual) Nucleated RBC % Seg Neutrophils # Seg Neutrophils # Man Lymphocytes # (Manual) Monocytes # (Manual) PT INR APTT Fibrinogen D-Dimer ABG pH POC ABG pCO2 POC ABG pO2 ABG pO2 ABG HCO3 ABG Base Excess ABG Hemoglobin ABG Oxyhemoglobin ABG Sodium ABG Potassium ABG Chloride ABG Glucose VBG pH Oxyhemoglobin Carboxyhemoglobin Sodium Potassium Chloride Carbon Dioxide BUN Creatinine Glucose POC Glucose 107 H 111 H 107 H Random Insulin C-Peptide Lactic Acid Calcium Ionized Calcium Phosphorus Magnesium AST ALT Alkaline Phosphatase Lactate Dehydrogenase NT-Pro-B Natriuret Pep Total Protein Albumin Arterial Blood Glucose Arterial Blood Ionized Calcium Urine pH Urine WBC (Auto) U Epithel Cells (Auto) Vancomycin Trough Phenytoin Crossmatch 12/27/20 12/30/20 01/01/21 22:25 06:48 11:44 WBC RBC Hgb Hct MCV MCH MCHC RDW Plt Count Lymph % (Auto) [place] % (Auto) Lymph # (Auto) [place] # (Auto) Baso # (Auto) Seg Neutrophils % Seg Neuts % (Manual) Lymphocytes % (Manual) Monocytes % (Manual) Nucleated RBC % Seg Neutrophils # Seg Neutrophils # Man Lymphocytes # (Manual) Monocytes # (Manual) PT INR APTT Fibrinogen D-Dimer ABG pH POC ABG pCO2 POC ABG pO2 ABG pO2 ABG HCO3 ABG Base Excess ABG Hemoglobin ABG Oxyhemoglobin ABG Sodium ABG Potassium ABG Chloride ABG Glucose VBG pH Oxyhemoglobin Carboxyhemoglobin Sodium Potassium Chloride Carbon Dioxide BUN Creatinine Glucose POC Glucose 106 H 107 H Random Insulin C-Peptide Lactic Acid Calcium Ionized Calcium Phosphorus Magnesium AST ALT Alkaline Phosphatase Lactate Dehydrogenase NT-Pro-B Natriuret Pep Total Protein Albumin Arterial Blood Glucose Arterial Blood Ionized Calcium Urine pH Urine WBC (Auto) U Epithel Cells (Auto) 16.0 H Vancomycin Trough Phenytoin Crossmatch 01/01/21 01/02/21 01/02/21 16:21 00:32 06:47 WBC RBC Hgb Hct MCV MCH MCHC RDW Plt Count Lymph % (Auto) [place] % (Auto) Lymph # (Auto) [place] # (Auto) Baso # (Auto) Seg Neutrophils % Seg Neuts % (Manual) Lymphocytes % (Manual) Monocytes % (Manual) Nucleated RBC % Seg Neutrophils # Seg Neutrophils # Man Lymphocytes # (Manual) Monocytes # (Manual) PT INR APTT Fibrinogen D-Dimer ABG pH POC ABG pCO2 POC ABG pO2 ABG pO2 ABG HCO3 ABG Base Excess ABG Hemoglobin ABG Oxyhemoglobin ABG Sodium ABG Potassium ABG Chloride ABG Glucose VBG pH Oxyhemoglobin Carboxyhemoglobin Sodium 152 H Potassium Chloride 117.8 H Carbon Dioxide 20 L BUN 21 H Creatinine Glucose 125 H POC Glucose 106 H 113 H Random Insulin C-Peptide Lactic Acid Calcium Ionized Calcium Phosphorus Magnesium AST ALT Alkaline Phosphatase Lactate Dehydrogenase NT-Pro-B Natriuret Pep Total Protein Albumin Arterial Blood Glucose Arterial Blood Ionized Calcium Urine pH Urine WBC (Auto) U Epithel Cells (Auto) Vancomycin Trough Phenytoin Crossmatch 01/02/21 01/02/21 01/02/21 06:47 12:15 23:44 WBC RBC 5.61 H Hgb Hct 43.8 H MCV 78 L MCH 25 L MCHC RDW Plt Count Lymph % (Auto) [place] % (Auto) 9.5 H Lymph # (Auto) [place] # (Auto) 0.9 H Baso # (Auto) Seg Neutrophils % Seg Neuts % (Manual) Lymphocytes % (Manual) Monocytes % (Manual) Nucleated RBC % Seg Neutrophils # Seg Neutrophils # Man Lymphocytes # (Manual) Monocytes # (Manual) PT INR APTT Fibrinogen D-Dimer ABG pH POC ABG pCO2 POC ABG pO2 ABG pO2 ABG HCO3 ABG Base Excess ABG Hemoglobin ABG Oxyhemoglobin ABG Sodium ABG Potassium ABG Chloride ABG Glucose VBG pH Oxyhemoglobin Carboxyhemoglobin Sodium Potassium Chloride Carbon Dioxide BUN Creatinine Glucose POC Glucose 111 H 120 H Random Insulin C-Peptide Lactic Acid Calcium Ionized Calcium Phosphorus Magnesium AST ALT Alkaline Phosphatase Lactate Dehydrogenase NT-Pro-B Natriuret Pep Total Protein Albumin Arterial Blood Glucose Arterial Blood Ionized Calcium Urine pH Urine WBC (Auto) U Epithel Cells (Auto) Vancomycin Trough Phenytoin Crossmatch 01/03/21 01/03/21 01/04/21 05:04 06:18 05:56 WBC RBC Hgb Hct MCV MCH MCHC RDW Plt Count Lymph % (Auto) [place] % (Auto) Lymph # (Auto) [place] # (Auto) Baso # (Auto) Seg Neutrophils % Seg Neuts % (Manual) Lymphocytes % (Manual) Monocytes % (Manual) Nucleated RBC % Seg Neutrophils # Seg Neutrophils # Man Lymphocytes # (Manual) Monocytes # (Manual) PT INR APTT Fibrinogen D-Dimer ABG pH POC ABG pCO2 POC ABG pO2 ABG pO2 ABG HCO3 ABG Base Excess ABG Hemoglobin ABG Oxyhemoglobin ABG Sodium ABG Potassium ABG Chloride ABG Glucose VBG pH Oxyhemoglobin Carboxyhemoglobin Sodium 153 H Potassium Chloride 119.1 H 109.8 H Carbon Dioxide 20 L BUN 18 H Creatinine 0.5 L Glucose 110 H POC Glucose 113 H Random Insulin C-Peptide Lactic Acid Calcium Ionized Calcium Phosphorus Magnesium AST ALT Alkaline Phosphatase Lactate Dehydrogenase NT-Pro-B Natriuret Pep Total Protein Albumin Arterial Blood Glucose Arterial Blood Ionized Calcium Urine pH Urine WBC (Auto) U Epithel Cells (Auto) Vancomycin Trough Phenytoin Crossmatch 01/04/21 01/04/21 01/06/21 06:11 11:52 05:37 WBC RBC Hgb Hct MCV MCH MCHC RDW Plt Count Lymph % (Auto) [place] % (Auto) Lymph # (Auto) [place] # (Auto) Baso # (Auto) Seg Neutrophils % Seg Neuts % (Manual) Lymphocytes % (Manual) Monocytes % (Manual) Nucleated RBC % Seg Neutrophils # Seg Neutrophils # Man Lymphocytes # (Manual) Monocytes # (Manual) PT INR APTT Fibrinogen D-Dimer ABG pH POC ABG pCO2 POC ABG pO2 ABG pO2 ABG HCO3 ABG Base Excess ABG Hemoglobin ABG Oxyhemoglobin ABG Sodium ABG Potassium ABG Chloride ABG Glucose VBG pH Oxyhemoglobin Carboxyhemoglobin Sodium Potassium Chloride Carbon Dioxide BUN Creatinine Glucose POC Glucose 106 H 106 H 106 H Random Insulin C-Peptide Lactic Acid Calcium Ionized Calcium Phosphorus Magnesium AST ALT Alkaline Phosphatase Lactate Dehydrogenase NT-Pro-B Natriuret Pep Total Protein Albumin Arterial Blood Glucose Arterial Blood Ionized Calcium Urine pH Urine WBC (Auto) U Epithel Cells (Auto) Vancomycin Trough Phenytoin Crossmatch 01/07/21 01/08/21 01/09/21 06:32 06:02 04:27 WBC RBC 5.22 H Hgb Hct MCV 76 L MCH 25 L MCHC RDW Plt Count Lymph % (Auto) [place] % (Auto) 9.7 H Lymph # (Auto) [place] # (Auto) Baso # (Auto) Seg Neutrophils % Seg Neuts % (Manual) Lymphocytes % (Manual) Monocytes % (Manual) Nucleated RBC % Seg Neutrophils # Seg Neutrophils # Man Lymphocytes # (Manual) Monocytes # (Manual) PT INR APTT Fibrinogen D-Dimer ABG pH POC ABG pCO2 POC ABG pO2 ABG pO2 ABG HCO3 ABG Base Excess ABG Hemoglobin ABG Oxyhemoglobin ABG Sodium ABG Potassium ABG Chloride ABG Glucose VBG pH Oxyhemoglobin Carboxyhemoglobin Sodium Potassium Chloride Carbon Dioxide BUN Creatinine Glucose POC Glucose 115 H 129 H Random Insulin C-Peptide Lactic Acid Calcium Ionized Calcium Phosphorus Magnesium AST ALT Alkaline Phosphatase Lactate Dehydrogenase NT-Pro-B Natriuret Pep Total Protein Albumin Arterial Blood Glucose Arterial Blood Ionized Calcium Urine pH Urine WBC (Auto) U Epithel Cells (Auto) Vancomycin Trough Phenytoin Crossmatch 01/09/21 01/09/21 01/10/21 04:27 16:14 12:41 WBC RBC Hgb Hct MCV MCH MCHC RDW Plt Count Lymph % (Auto) [place] % (Auto) Lymph # (Auto) [place] # (Auto) Baso # (Auto) Seg Neutrophils % Seg Neuts % (Manual) Lymphocytes % (Manual) Monocytes % (Manual) Nucleated RBC % Seg Neutrophils # Seg Neutrophils # Man Lymphocytes # (Manual) Monocytes # (Manual) PT INR APTT Fibrinogen D-Dimer ABG pH POC ABG pCO2 POC ABG pO2 ABG pO2 ABG HCO3 ABG Base Excess ABG Hemoglobin ABG Oxyhemoglobin ABG Sodium ABG Potassium ABG Chloride ABG Glucose VBG pH Oxyhemoglobin Carboxyhemoglobin Sodium Potassium Chloride Carbon Dioxide BUN Creatinine 0.5 L Glucose POC Glucose 111 H 115 H Random Insulin C-Peptide Lactic Acid Calcium Ionized Calcium Phosphorus Magnesium AST ALT Alkaline Phosphatase Lactate Dehydrogenase NT-Pro-B Natriuret Pep Total Protein Albumin Arterial Blood Glucose Arterial Blood Ionized Calcium Urine pH Urine WBC (Auto) U Epithel Cells (Auto) Vancomycin Trough Phenytoin Crossmatch 01/13/21 01/17/21 01/17/21 05:48 07:40 07:40 WBC RBC 5.23 H Hgb Hct MCV 75 L MCH 24 L MCHC RDW Plt Count Lymph % (Auto) [place] % (Auto) 8.2 H Lymph # (Auto) [place] # (Auto) Baso # (Auto) Seg Neutrophils % Seg Neuts % (Manual) Lymphocytes % (Manual) Monocytes % (Manual) Nucleated RBC % Seg Neutrophils # Seg Neutrophils # Man Lymphocytes # (Manual) Monocytes # (Manual) PT INR APTT Fibrinogen D-Dimer ABG pH POC ABG pCO2 POC ABG pO2 ABG pO2 ABG HCO3 ABG Base Excess ABG Hemoglobin ABG Oxyhemoglobin ABG Sodium ABG Potassium ABG Chloride ABG Glucose VBG pH Oxyhemoglobin Carboxyhemoglobin Sodium 135 L Potassium Chloride Carbon Dioxide BUN Creatinine Glucose POC Glucose 110 H Random Insulin C-Peptide Lactic Acid Calcium Ionized Calcium Phosphorus Magnesium AST ALT Alkaline Phosphatase Lactate Dehydrogenase NT-Pro-B Natriuret Pep Total Protein Albumin Arterial Blood Glucose Arterial Blood Ionized Calcium Urine pH Urine WBC (Auto) U Epithel Cells (Auto) Vancomycin Trough Phenytoin Crossmatch 01/17/21 01/18/21 01/18/21 23:41 08:47 17:54 WBC RBC Hgb Hct MCV MCH MCHC RDW Plt Count Lymph % (Auto) [place] % (Auto) Lymph # (Auto) [place] # (Auto) Baso # (Auto) Seg Neutrophils % Seg Neuts % (Manual) Lymphocytes % (Manual) Monocytes % (Manual) Nucleated RBC % Seg Neutrophils # Seg Neutrophils # Man Lymphocytes # (Manual) Monocytes # (Manual) PT INR APTT Fibrinogen D-Dimer ABG pH POC ABG pCO2 POC ABG pO2 ABG pO2 ABG HCO3 ABG Base Excess ABG Hemoglobin ABG Oxyhemoglobin ABG Sodium ABG Potassium ABG Chloride ABG Glucose VBG pH Oxyhemoglobin Carboxyhemoglobin Sodium Potassium Chloride Carbon Dioxide BUN Creatinine Glucose POC Glucose 110 H 114 H Random Insulin C-Peptide Lactic Acid Calcium Ionized Calcium Phosphorus Magnesium AST ALT Alkaline Phosphatase Lactate Dehydrogenase NT-Pro-B Natriuret Pep Total Protein Albumin Arterial Blood Glucose Arterial Blood Ionized Calcium Urine pH 8.0 H Urine WBC (Auto) U Epithel Cells (Auto) Vancomycin Trough Phenytoin Crossmatch 01/19/21 01/19/21 01/20/21 05:18 10:47 06:10 WBC RBC Hgb Hct MCV MCH MCHC RDW Plt Count Lymph % (Auto) [place] % (Auto) Lymph # (Auto) [place] # (Auto) Baso # (Auto) Seg Neutrophils % Seg Neuts % (Manual) Lymphocytes % (Manual) Monocytes % (Manual) Nucleated RBC % Seg Neutrophils # Seg Neutrophils # Man Lymphocytes # (Manual) Monocytes # (Manual) PT INR APTT Fibrinogen D-Dimer ABG pH POC ABG pCO2 POC ABG pO2 ABG pO2 ABG HCO3 ABG Base Excess ABG Hemoglobin ABG Oxyhemoglobin ABG Sodium ABG Potassium ABG Chloride ABG Glucose VBG pH Oxyhemoglobin Carboxyhemoglobin Sodium Potassium Chloride Carbon Dioxide BUN Creatinine Glucose POC Glucose 110 H 124 H 110 H Random Insulin C-Peptide Lactic Acid Calcium Ionized Calcium Phosphorus Magnesium AST ALT Alkaline Phosphatase Lactate Dehydrogenase NT-Pro-B Natriuret Pep Total Protein Albumin Arterial Blood Glucose Arterial Blood Ionized Calcium Urine pH Urine WBC (Auto) U Epithel Cells (Auto) Vancomycin Trough Phenytoin Crossmatch 01/20/21 01/21/21 01/23/21 22:13 22:44 06:21 WBC RBC Hgb Hct MCV MCH MCHC RDW Plt Count Lymph % (Auto) [place] % (Auto) Lymph # (Auto) [place] # (Auto) Baso # (Auto) Seg Neutrophils % Seg Neuts % (Manual) Lymphocytes % (Manual) Monocytes % (Manual) Nucleated RBC % Seg Neutrophils # Seg Neutrophils # Man Lymphocytes # (Manual) Monocytes # (Manual) PT INR APTT Fibrinogen D-Dimer ABG pH POC ABG pCO2 POC ABG pO2 ABG pO2 ABG HCO3 ABG Base Excess ABG Hemoglobin ABG Oxyhemoglobin ABG Sodium ABG Potassium ABG Chloride ABG Glucose VBG pH Oxyhemoglobin Carboxyhemoglobin Sodium Potassium Chloride Carbon Dioxide BUN Creatinine Glucose POC Glucose 109 H 120 H 106 H Random Insulin C-Peptide Lactic Acid Calcium Ionized Calcium Phosphorus Magnesium AST ALT Alkaline Phosphatase Lactate Dehydrogenase NT-Pro-B Natriuret Pep Total Protein Albumin Arterial Blood Glucose Arterial Blood Ionized Calcium Urine pH Urine WBC (Auto) U Epithel Cells (Auto) Vancomycin Trough Phenytoin Crossmatch 01/23/21 01/24/21 01/24/21 23:54 04:18 04:18 WBC RBC 5.23 H Hgb Hct MCV 75 L MCH 25 L MCHC RDW Plt Count Lymph % (Auto) [place] % (Auto) 11.8 H Lymph # (Auto) [place] # (Auto) 0.9 H Baso # (Auto) Seg Neutrophils % Seg Neuts % (Manual) Lymphocytes % (Manual) Monocytes % (Manual) Nucleated RBC % Seg Neutrophils # Seg Neutrophils # Man Lymphocytes # (Manual) Monocytes # (Manual) PT INR APTT Fibrinogen D-Dimer ABG pH POC ABG pCO2 POC ABG pO2 ABG pO2 ABG HCO3 ABG Base Excess ABG Hemoglobin ABG Oxyhemoglobin ABG Sodium ABG Potassium ABG Chloride ABG Glucose VBG pH Oxyhemoglobin Carboxyhemoglobin Sodium Potassium Chloride Carbon Dioxide BUN Creatinine Glucose POC Glucose 109 H Random Insulin C-Peptide Lactic Acid Calcium Ionized Calcium Phosphorus Magnesium AST ALT Alkaline Phosphatase Lactate Dehydrogenase NT-Pro-B Natriuret Pep Total Protein Albumin 3.7 L Arterial Blood Glucose Arterial Blood Ionized Calcium Urine pH Urine WBC (Auto) U Epithel Cells (Auto) Vancomycin Trough Phenytoin Crossmatch 01/24/21 01/25/21 01/26/21 05:11 00:29 05:33 WBC RBC Hgb Hct MCV MCH MCHC RDW Plt Count Lymph % (Auto) [place] % (Auto) Lymph # (Auto) [place] # (Auto) Baso # (Auto) Seg Neutrophils % Seg Neuts % (Manual) Lymphocytes % (Manual) Monocytes % (Manual) Nucleated RBC % Seg Neutrophils # Seg Neutrophils # Man Lymphocytes # (Manual) Monocytes # (Manual) PT INR APTT Fibrinogen D-Dimer ABG pH POC ABG pCO2 POC ABG pO2 ABG pO2 ABG HCO3 ABG Base Excess ABG Hemoglobin ABG Oxyhemoglobin ABG Sodium ABG Potassium ABG Chloride ABG Glucose VBG pH Oxyhemoglobin Carboxyhemoglobin Sodium Potassium Chloride Carbon Dioxide BUN Creatinine Glucose POC Glucose 116 H 106 H 109 H Random Insulin C-Peptide Lactic Acid Calcium Ionized Calcium Phosphorus Magnesium AST ALT Alkaline Phosphatase Lactate Dehydrogenase NT-Pro-B Natriuret Pep Total Protein Albumin Arterial Blood Glucose Arterial Blood Ionized Calcium Urine pH Urine WBC (Auto) U Epithel Cells (Auto) Vancomycin Trough Phenytoin Crossmatch 01/27/21 01/27/21 01/27/21 00:05 06:32 10:58 WBC RBC Hgb Hct MCV MCH MCHC RDW Plt Count Lymph % (Auto) [place] % (Auto) Lymph # (Auto) [place] # (Auto) Baso # (Auto) Seg Neutrophils % Seg Neuts % (Manual) Lymphocytes % (Manual) Monocytes % (Manual) Nucleated RBC % Seg Neutrophils # Seg Neutrophils # Man Lymphocytes # (Manual) Monocytes # (Manual) PT INR APTT Fibrinogen D-Dimer ABG pH POC ABG pCO2 POC ABG pO2 ABG pO2 ABG HCO3 ABG Base Excess ABG Hemoglobin ABG Oxyhemoglobin ABG Sodium ABG Potassium ABG Chloride ABG Glucose VBG pH Oxyhemoglobin Carboxyhemoglobin Sodium Potassium Chloride Carbon Dioxide BUN Creatinine Glucose POC Glucose 116 H 108 H 126 H Random Insulin C-Peptide Lactic Acid Calcium Ionized Calcium Phosphorus Magnesium AST ALT Alkaline Phosphatase Lactate Dehydrogenase NT-Pro-B Natriuret Pep Total Protein Albumin Arterial Blood Glucose Arterial Blood Ionized Calcium Urine pH Urine WBC (Auto) U Epithel Cells (Auto) Vancomycin Trough Phenytoin Crossmatch 01/27/21 01/28/21 01/28/21 17:01 06:24 11:41 WBC RBC Hgb Hct MCV MCH MCHC RDW Plt Count Lymph % (Auto) [place] % (Auto) Lymph # (Auto) [place] # (Auto) Baso # (Auto) Seg Neutrophils % Seg Neuts % (Manual) Lymphocytes % (Manual) Monocytes % (Manual) Nucleated RBC % Seg Neutrophils # Seg Neutrophils # Man Lymphocytes # (Manual) Monocytes # (Manual) PT INR APTT Fibrinogen D-Dimer ABG pH POC ABG pCO2 POC ABG pO2 ABG pO2 ABG HCO3 ABG Base Excess ABG Hemoglobin ABG Oxyhemoglobin ABG Sodium ABG Potassium ABG Chloride ABG Glucose VBG pH Oxyhemoglobin Carboxyhemoglobin Sodium Potassium Chloride Carbon Dioxide BUN Creatinine Glucose POC Glucose 113 H 112 H 127 H Random Insulin C-Peptide Lactic Acid Calcium Ionized Calcium Phosphorus Magnesium AST ALT Alkaline Phosphatase Lactate Dehydrogenase NT-Pro-B Natriuret Pep Total Protein Albumin Arterial Blood Glucose Arterial Blood Ionized Calcium Urine pH Urine WBC (Auto) U Epithel Cells (Auto) Vancomycin Trough Phenytoin Crossmatch 01/28/21 01/29/21 01/29/21 17:44 05:47 12:04 WBC RBC 5.27 H Hgb Hct MCV 75 L MCH 24 L MCHC RDW Plt Count Lymph % (Auto) [place] % (Auto) 10.3 H Lymph # (Auto) [place] # (Auto) Baso # (Auto) Seg Neutrophils % Seg Neuts % (Manual) Lymphocytes % (Manual) Monocytes % (Manual) Nucleated RBC % Seg Neutrophils # Seg Neutrophils # Man Lymphocytes # (Manual) Monocytes # (Manual) PT INR APTT Fibrinogen D-Dimer ABG pH POC ABG pCO2 POC ABG pO2 ABG pO2 ABG HCO3 ABG Base Excess ABG Hemoglobin ABG Oxyhemoglobin ABG Sodium ABG Potassium ABG Chloride ABG Glucose VBG pH Oxyhemoglobin Carboxyhemoglobin Sodium Potassium Chloride Carbon Dioxide BUN Creatinine Glucose POC Glucose 108 H 107 H Random Insulin C-Peptide Lactic Acid Calcium Ionized Calcium Phosphorus Magnesium AST ALT Alkaline Phosphatase Lactate Dehydrogenase NT-Pro-B Natriuret Pep Total Protein Albumin Arterial Blood Glucose Arterial Blood Ionized Calcium Urine pH Urine WBC (Auto) U Epithel Cells (Auto) Vancomycin Trough Phenytoin Crossmatch 01/29/21 01/31/21 02/01/21 23:01 16:55 01:01 WBC RBC Hgb Hct MCV MCH MCHC RDW Plt Count Lymph % (Auto) [place] % (Auto) Lymph # (Auto) [place] # (Auto) Baso # (Auto) Seg Neutrophils % Seg Neuts % (Manual) Lymphocytes % (Manual) Monocytes % (Manual) Nucleated RBC % Seg Neutrophils # Seg Neutrophils # Man Lymphocytes # (Manual) Monocytes # (Manual) PT INR APTT Fibrinogen D-Dimer ABG pH POC ABG pCO2 POC ABG pO2 ABG pO2 ABG HCO3 ABG Base Excess ABG Hemoglobin ABG Oxyhemoglobin ABG Sodium ABG Potassium ABG Chloride ABG Glucose VBG pH Oxyhemoglobin Carboxyhemoglobin Sodium Potassium Chloride Carbon Dioxide BUN Creatinine Glucose POC Glucose 108 H 110 H 113 H Random Insulin C-Peptide Lactic Acid Calcium Ionized Calcium Phosphorus Magnesium AST ALT Alkaline Phosphatase Lactate Dehydrogenase NT-Pro-B Natriuret Pep Total Protein Albumin Arterial Blood Glucose Arterial Blood Ionized Calcium Urine pH Urine WBC (Auto) U Epithel Cells (Auto) Vancomycin Trough Phenytoin Crossmatch 02/03/21 02/03/21 02/06/21 06:52 07:17 06:42 WBC RBC Hgb Hct MCV MCH MCHC RDW Plt Count Lymph % (Auto) [place] % (Auto) Lymph # (Auto) [place] # (Auto) Baso # (Auto) Seg Neutrophils % Seg Neuts % (Manual) Lymphocytes % (Manual) Monocytes % (Manual) Nucleated RBC % Seg Neutrophils # Seg Neutrophils # Man Lymphocytes # (Manual) Monocytes # (Manual) PT INR APTT Fibrinogen D-Dimer ABG pH POC ABG pCO2 POC ABG pO2 ABG pO2 ABG HCO3 ABG Base Excess ABG Hemoglobin ABG Oxyhemoglobin ABG Sodium ABG Potassium ABG Chloride ABG Glucose VBG pH Oxyhemoglobin Carboxyhemoglobin Sodium Potassium Chloride Carbon Dioxide BUN Creatinine 0.5 L Glucose POC Glucose 68 L 112 H Random Insulin C-Peptide Lactic Acid Calcium Ionized Calcium Phosphorus Magnesium AST ALT Alkaline Phosphatase Lactate Dehydrogenase NT-Pro-B Natriuret Pep Total Protein Albumin Arterial Blood Glucose Arterial Blood Ionized Calcium Urine pH Urine WBC (Auto) U Epithel Cells (Auto) Vancomycin Trough Phenytoin Crossmatch 02/06/21 02/07/21 02/07/21 23:32 11:49 16:47 WBC RBC Hgb Hct MCV MCH MCHC RDW Plt Count Lymph % (Auto) [place] % (Auto) Lymph # (Auto) [place] # (Auto) Baso # (Auto) Seg Neutrophils % Seg Neuts % (Manual) Lymphocytes % (Manual) Monocytes % (Manual) Nucleated RBC % Seg Neutrophils # Seg Neutrophils # Man Lymphocytes # (Manual) Monocytes # (Manual) PT INR APTT Fibrinogen D-Dimer ABG pH POC ABG pCO2 POC ABG pO2 ABG pO2 ABG HCO3 ABG Base Excess ABG Hemoglobin ABG Oxyhemoglobin ABG Sodium ABG Potassium ABG Chloride ABG Glucose VBG pH Oxyhemoglobin Carboxyhemoglobin Sodium Potassium Chloride Carbon Dioxide BUN Creatinine Glucose POC Glucose 113 H 109 H 106 H Random Insulin C-Peptide Lactic Acid Calcium Ionized Calcium Phosphorus Magnesium AST ALT Alkaline Phosphatase Lactate Dehydrogenase NT-Pro-B Natriuret Pep Total Protein Albumin Arterial Blood Glucose Arterial Blood Ionized Calcium Urine pH Urine WBC (Auto) U Epithel Cells (Auto) Vancomycin Trough Phenytoin Crossmatch 02/07/21 02/08/21 02/08/21 22:59 06:17 06:38 WBC RBC Hgb Hct MCV MCH MCHC RDW Plt Count Lymph % (Auto) [place] % (Auto) Lymph # (Auto) [place] # (Auto) Baso # (Auto) Seg Neutrophils % Seg Neuts % (Manual) Lymphocytes % (Manual) Monocytes % (Manual) Nucleated RBC % Seg Neutrophils # Seg Neutrophils # Man Lymphocytes # (Manual) Monocytes # (Manual) PT INR APTT Fibrinogen D-Dimer ABG pH POC ABG pCO2 POC ABG pO2 ABG pO2 ABG HCO3 ABG Base Excess ABG Hemoglobin ABG Oxyhemoglobin ABG Sodium ABG Potassium ABG Chloride ABG Glucose VBG pH Oxyhemoglobin Carboxyhemoglobin Sodium 132 L Potassium Chloride 94.2 L Carbon Dioxide BUN Creatinine 0.5 L Glucose 101 H POC Glucose 106 H 110 H Random Insulin C-Peptide Lactic Acid Calcium Ionized Calcium Phosphorus Magnesium AST ALT Alkaline Phosphatase Lactate Dehydrogenase NT-Pro-B Natriuret Pep Total Protein Albumin Arterial Blood Glucose Arterial Blood Ionized Calcium Urine pH Urine WBC (Auto) U Epithel Cells (Auto) Vancomycin Trough Phenytoin Crossmatch 02/08/21 02/09/21 02/09/21 12:51 00:03 06:27 WBC RBC Hgb Hct MCV MCH MCHC RDW Plt Count Lymph % (Auto) [place] % (Auto) Lymph # (Auto) [place] # (Auto) Baso # (Auto) Seg Neutrophils % Seg Neuts % (Manual) Lymphocytes % (Manual) Monocytes % (Manual) Nucleated RBC % Seg Neutrophils # Seg Neutrophils # Man Lymphocytes # (Manual) Monocytes # (Manual) PT INR APTT Fibrinogen D-Dimer ABG pH POC ABG pCO2 POC ABG pO2 ABG pO2 ABG HCO3 ABG Base Excess ABG Hemoglobin ABG Oxyhemoglobin ABG Sodium ABG Potassium ABG Chloride ABG Glucose VBG pH Oxyhemoglobin Carboxyhemoglobin Sodium Potassium Chloride Carbon Dioxide BUN Creatinine Glucose POC Glucose 109 H 139 H 106 H Random Insulin C-Peptide Lactic Acid Calcium Ionized Calcium Phosphorus Magnesium AST ALT Alkaline Phosphatase Lactate Dehydrogenase NT-Pro-B Natriuret Pep Total Protein Albumin Arterial Blood Glucose Arterial Blood Ionized Calcium Urine pH Urine WBC (Auto) U Epithel Cells (Auto) Vancomycin Trough Phenytoin Crossmatch 02/09/21 02/09/21 02/09/21 10:59 10:59 11:50 WBC RBC 5.37 H Hgb Hct MCV 73 L MCH 25 L MCHC RDW Plt Count Lymph % (Auto) [place] % (Auto) Lymph # (Auto) [place] # (Auto) Baso # (Auto) Seg Neutrophils % Seg Neuts % (Manual) Lymphocytes % (Manual) Monocytes % (Manual) 13.0 H Nucleated RBC % Seg Neutrophils # Seg Neutrophils # Man Lymphocytes # (Manual) Monocytes # (Manual) PT INR APTT Fibrinogen D-Dimer ABG pH POC ABG pCO2 POC ABG pO2 ABG pO2 ABG HCO3 ABG Base Excess ABG Hemoglobin ABG Oxyhemoglobin ABG Sodium ABG Potassium ABG Chloride ABG Glucose VBG pH Oxyhemoglobin Carboxyhemoglobin Sodium 133 L Potassium Chloride 96.9 L Carbon Dioxide 20 L BUN Creatinine 0.5 L Glucose 104 H POC Glucose 120 H Random Insulin C-Peptide Lactic Acid Calcium Ionized Calcium Phosphorus Magnesium AST ALT Alkaline Phosphatase Lactate Dehydrogenase NT-Pro-B Natriuret Pep Total Protein Albumin Arterial Blood Glucose Arterial Blood Ionized Calcium Urine pH Urine WBC (Auto) U Epithel Cells (Auto) Vancomycin Trough Phenytoin Crossmatch 02/09/21 02/09/21 02/11/21 17:35 23:25 06:26 WBC RBC Hgb Hct MCV MCH MCHC RDW Plt Count Lymph % (Auto) [place] % (Auto) Lymph # (Auto) [place] # (Auto) Baso # (Auto) Seg Neutrophils % Seg Neuts % (Manual) Lymphocytes % (Manual) Monocytes % (Manual) Nucleated RBC % Seg Neutrophils # Seg Neutrophils # Man Lymphocytes # (Manual) Monocytes # (Manual) PT INR APTT Fibrinogen D-Dimer ABG pH POC ABG pCO2 POC ABG pO2 ABG pO2 ABG HCO3 ABG Base Excess ABG Hemoglobin ABG Oxyhemoglobin ABG Sodium ABG Potassium ABG Chloride ABG Glucose VBG pH Oxyhemoglobin Carboxyhemoglobin Sodium Potassium Chloride Carbon Dioxide BUN Creatinine Glucose POC Glucose 115 H 145 H 113 H Random Insulin C-Peptide Lactic Acid Calcium Ionized Calcium Phosphorus Magnesium AST ALT Alkaline Phosphatase Lactate Dehydrogenase NT-Pro-B Natriuret Pep Total Protein Albumin Arterial Blood Glucose Arterial Blood Ionized Calcium Urine pH Urine WBC (Auto) U Epithel Cells (Auto) Vancomycin Trough Phenytoin Crossmatch 02/11/21 02/11/21 02/11/21 11:35 16:15 17:04 WBC RBC 5.10 H Hgb Hct MCV 74 L MCH 24 L MCHC RDW Plt Count Lymph % (Auto) [place] % (Auto) 13.2 H Lymph # (Auto) [place] # (Auto) 1.1 H Baso # (Auto) Seg Neutrophils % Seg Neuts % (Manual) Lymphocytes % (Manual) Monocytes % (Manual) Nucleated RBC % Seg Neutrophils # Seg Neutrophils # Man Lymphocytes # (Manual) Monocytes # (Manual) PT INR APTT Fibrinogen D-Dimer ABG pH POC ABG pCO2 POC ABG pO2 ABG pO2 ABG HCO3 ABG Base Excess ABG Hemoglobin ABG Oxyhemoglobin ABG Sodium ABG Potassium ABG Chloride ABG Glucose VBG pH Oxyhemoglobin Carboxyhemoglobin Sodium Potassium Chloride Carbon Dioxide BUN Creatinine Glucose POC Glucose 117 H 117 H Random Insulin C-Peptide Lactic Acid Calcium Ionized Calcium Phosphorus Magnesium AST ALT Alkaline Phosphatase Lactate Dehydrogenase NT-Pro-B Natriuret Pep Total Protein Albumin Arterial Blood Glucose Arterial Blood Ionized Calcium Urine pH Urine WBC (Auto) U Epithel Cells (Auto) Vancomycin Trough Phenytoin Crossmatch 02/11/21 02/12/21 02/12/21 22:10 04:09 04:09 WBC RBC Hgb Hct MCV 74 L MCH 23 L MCHC RDW Plt Count Lymph % (Auto) [place] % (Auto) Lymph # (Auto) [place] # (Auto) Baso # (Auto) Seg Neutrophils % Seg Neuts % (Manual) Lymphocytes % (Manual) Monocytes % (Manual) Nucleated RBC % Seg Neutrophils # Seg Neutrophils # Man Lymphocytes # (Manual) Monocytes # (Manual) PT INR APTT Fibrinogen D-Dimer ABG pH POC ABG pCO2 POC ABG pO2 ABG pO2 ABG HCO3 ABG Base Excess ABG Hemoglobin ABG Oxyhemoglobin ABG Sodium ABG Potassium ABG Chloride ABG Glucose VBG pH Oxyhemoglobin Carboxyhemoglobin Sodium Potassium Chloride Carbon Dioxide BUN Creatinine 0.5 L Glucose 107 H POC Glucose 132 H Random Insulin C-Peptide Lactic Acid Calcium Ionized Calcium Phosphorus Magnesium AST ALT Alkaline Phosphatase Lactate Dehydrogenase NT-Pro-B Natriuret Pep Total Protein Albumin Arterial Blood Glucose Arterial Blood Ionized Calcium Urine pH Urine WBC (Auto) U Epithel Cells (Auto) Vancomycin Trough Phenytoin Crossmatch 02/13/21 02/14/21 02/14/21 05:16 00:52 13:16 WBC RBC Hgb Hct MCV MCH MCHC RDW Plt Count Lymph % (Auto) [place] % (Auto) Lymph # (Auto) [place] # (Auto) Baso # (Auto) Seg Neutrophils % Seg Neuts % (Manual) Lymphocytes % (Manual) Monocytes % (Manual) Nucleated RBC % Seg Neutrophils # Seg Neutrophils # Man Lymphocytes # (Manual) Monocytes # (Manual) PT INR APTT Fibrinogen D-Dimer ABG pH POC ABG pCO2 POC ABG pO2 ABG pO2 ABG HCO3 ABG Base Excess ABG Hemoglobin ABG Oxyhemoglobin ABG Sodium ABG Potassium ABG Chloride ABG Glucose VBG pH Oxyhemoglobin Carboxyhemoglobin Sodium Potassium Chloride Carbon Dioxide BUN Creatinine Glucose POC Glucose 106 H 115 H 107 H Random Insulin C-Peptide Lactic Acid Calcium Ionized Calcium Phosphorus Magnesium AST ALT Alkaline Phosphatase Lactate Dehydrogenase NT-Pro-B Natriuret Pep Total Protein Albumin Arterial Blood Glucose Arterial Blood Ionized Calcium Urine pH Urine WBC (Auto) U Epithel Cells (Auto) Vancomycin Trough Phenytoin Crossmatch 02/15/21 02/15/21 02/16/21 12:01 16:32 05:54 WBC RBC Hgb Hct MCV MCH MCHC RDW Plt Count Lymph % (Auto) [place] % (Auto) Lymph # (Auto) [place] # (Auto) Baso # (Auto) Seg Neutrophils % Seg Neuts % (Manual) Lymphocytes % (Manual) Monocytes % (Manual) Nucleated RBC % Seg Neutrophils # Seg Neutrophils # Man Lymphocytes # (Manual) Monocytes # (Manual) PT INR APTT Fibrinogen D-Dimer ABG pH POC ABG pCO2 POC ABG pO2 ABG pO2 ABG HCO3 ABG Base Excess ABG Hemoglobin ABG Oxyhemoglobin ABG Sodium ABG Potassium ABG Chloride ABG Glucose VBG pH Oxyhemoglobin Carboxyhemoglobin Sodium Potassium Chloride Carbon Dioxide BUN Creatinine Glucose POC Glucose 113 H 110 H 107 H Random Insulin C-Peptide Lactic Acid Calcium Ionized Calcium Phosphorus Magnesium AST ALT Alkaline Phosphatase Lactate Dehydrogenase NT-Pro-B Natriuret Pep Total Protein Albumin Arterial Blood Glucose Arterial Blood Ionized Calcium Urine pH Urine WBC (Auto) U Epithel Cells (Auto) Vancomycin Trough Phenytoin Crossmatch 02/16/21 02/17/21 02/22/21 11:31 23:36 23:11 WBC RBC Hgb Hct MCV MCH MCHC RDW Plt Count Lymph % (Auto) [place] % (Auto) Lymph # (Auto) [place] # (Auto) Baso # (Auto) Seg Neutrophils % Seg Neuts % (Manual) Lymphocytes % (Manual) Monocytes % (Manual) Nucleated RBC % Seg Neutrophils # Seg Neutrophils # Man Lymphocytes # (Manual) Monocytes # (Manual) PT INR APTT Fibrinogen D-Dimer ABG pH POC ABG pCO2 POC ABG pO2 ABG pO2 ABG HCO3 ABG Base Excess ABG Hemoglobin ABG Oxyhemoglobin ABG Sodium ABG Potassium ABG Chloride ABG Glucose VBG pH Oxyhemoglobin Carboxyhemoglobin Sodium Potassium Chloride Carbon Dioxide BUN Creatinine Glucose POC Glucose 107 H 108 H 107 H Random Insulin C-Peptide Lactic Acid Calcium Ionized Calcium Phosphorus Magnesium AST ALT Alkaline Phosphatase Lactate Dehydrogenase NT-Pro-B Natriuret Pep Total Protein Albumin Arterial Blood Glucose Arterial Blood Ionized Calcium Urine pH Urine WBC (Auto) U Epithel Cells (Auto) Vancomycin Trough Phenytoin Crossmatch 02/24/21 04:25 WBC RBC Hgb Hct MCV MCH MCHC RDW Plt Count Lymph % (Auto) [place] % (Auto) Lymph # (Auto) [place] # (Auto) Baso # (Auto) Seg Neutrophils % Seg Neuts % (Manual) Lymphocytes % (Manual) Monocytes % (Manual) Nucleated RBC % Seg Neutrophils # Seg Neutrophils # Man Lymphocytes # (Manual) Monocytes # (Manual) PT INR APTT Fibrinogen D-Dimer ABG pH POC ABG pCO2 POC ABG pO2 ABG pO2 ABG HCO3 ABG Base Excess ABG Hemoglobin ABG Oxyhemoglobin ABG Sodium ABG Potassium ABG Chloride ABG Glucose VBG pH Oxyhemoglobin Carboxyhemoglobin Sodium Potassium Chloride Carbon Dioxide BUN Creatinine Glucose POC Glucose 108 H Random Insulin C-Peptide Lactic Acid Calcium Ionized Calcium Phosphorus Magnesium AST ALT Alkaline Phosphatase Lactate Dehydrogenase NT-Pro-B Natriuret Pep Total Protein Albumin Arterial Blood Glucose Arterial Blood Ionized Calcium Urine pH Urine WBC (Auto) U Epithel Cells (Auto) Vancomycin Trough Phenytoin Crossmatch
[2021-02-28] MEDS: ENOXAPARIN 40 MG/0.4 ML INJ SUB-Q SCH (10:51)
[2021-02-28] MEDS: FAMOTIDINE 20 MG TAB PO SCH ×2 (10:55→22:43)
[2021-02-28] MEDS: METOPROLOL TARTRATE 25 MG TAB PO SCH ×2 (10:56→22:43)
--- NOTE | 2021-03-01 10:11 | Progress Note ---
Assessment and Plan Assessment and plan: --DIC (disseminated intravascular coagulation) vs HELLP syndrome Resolved --Possible Eclampsia/HELLP Syndrome Resolved --s/p Cardiac arrest x2 on admission and on 10/07 ACLS protocol followed by revival Echo showed preserved Ef --Anoxic brain injury, Developed following cardiac arrest, continue supportive care --Shock-resolved now awaiting placement s/p pressor support --ADOLPH-resolved Stable --Sepsis 2/2 UTI Resolved --Hypernatremia, resolved, cont free water with TF Resolved --DVT prophylaxis - lovenox Disposition - Pending placement History Interval history: 1 y/o female patient with Eclampsia/help syndrome, s/p emergent section with DIC, hemorrhage, supracervical abdominal hysterectomy, acute respiratory failure , tracheostomy on T-piece with morbid obesity, s/p cardiac arrest 12/08/2019 status post CPR per ACLS, acute hypoxic brain injury Acute kidney injury improved, severe shock requiring pressors, DIC septic shock improved, history of C. difficile colitis on vancomycin. Tracheostomy on T-piece, continues to require 5 L of oxygen. Brief history; 30 year old -Ang[place] female CHE 10/25/20 at 36w5d who presents with seizures in triage on 10/02/20. Pt was not able to provide history but per pt's , she presented to the hospital to return a 24 hour urine specimen for analysis. She then suddenly reported that she did not feel good. She was taken to labor and delivery and shortly after arrival, she began seizing. During this time, a code met was called because the patient became hypoxic. She was then noted to be without a pulse. Chest compressions were started immediately, and the patient was emergently taken to the operating room for delivery of the fetus. Off note, This patient has had care at [facility] with comanagement by [facility] since 11 wks complicated by ADHD, morbid obesity, generalized anxiety disorder, panic attacks, chronic narcotic use, fibromyalgia, GERD, Irritable Bowel Syndrome, Migraines, h/o endometrial ablation and ovarian vein embolization, genital herpes, insomnia, LGA fetus, nausea and vomiting, polyhydramnios, quad screen positive for Down's Syndrome, and previous x 3. She is GBS negative. , Patient tracheostomy on ventilatory support, unable to wean, continue supportive care poor prognosis 11:30: Pt brought to L&D triage for evaluation of possible labor. Pt accompanied by her spouse. Pt spouse poor historian; unable to obtain history- allergies at this time. Pt taken from registration to triage area via WC. Pt unresponsive, a ctively seizing with snorous respirations. supervisor of officials, Kassy, called and requesting assistance. 11:35: Multiple staff at bedside. Pt 02 sat 67% on nonrebreather, unable to read BP . Yifan Theodore CRNA, at bedside for intubation and assistance with IV insertion. INT attempt by multiple RNs unsuccessful at this time. 11:42: Pt being bagged by KORIN, 02% 79%. No pulse palpated, compressions on at this time; bharati young called and Dr. Newberry preparing OR for emergent c/s. 11:44: Continued compressions on stretcher while transporting pt to OR 1. Pt being bagged with jaw thrust manuever in place by KORIN Stringer student. 11:45: Arrival to OR 1. Dr. Newberry and Dr. Portillo present for emergent c/s. Code team arrived for continued care. patient revived and c/s done Patient has been bleeding from C/s site followed by supracervical hysterectomy for severe bleeding, Patient transfused multiple units of PRBC, Patient in DIC. Patient transferred to the ICU Hospital course; 10/03. Patient seen and examined at bedside this morning. Patient is nonresponsive and mechanically ventilated. On pressors. Labs reviewed-has leukocytosis, anemia, thrombocytopenia, ADOLPH and lactic acidosis. Started on IV antibiotics to cover possible sepsis secondary to DIC. Hematology oncology recommendations appreciated-needs additional cryoprecipitate and FFP. Monitor D-dimer, fibrinogen and frequent labs. Nephrology consulted for lactic acidosis and ADOLPH. 10/04. Remains mechanically ventilated. [place] antibiotics. Labs shows improved acidosis - lactic acid 3.5. Hb drop noted. Getting transfused 2 units PRBCs. Platelet count is ~40k. Continue to monitor labs closely. Critical care team on board. 10/05; xray reviewed, concerning for multifocal infilrate, likely underlying Pneumonia, will add ID consult to assist with management of this critically ill patient, start tube feed, closely monitor renal system 10/06: Resumed care, remains on mechanical ventilation. No active bleeding, H&H stable. Continue to monitor CBC and BMP. Continue IV antibiotic for underlying pneumonia. Follow critical care and ID recommendation. 10/07: Remains on mechanical ventilation. No active bleeding, H&H stable. Cri tical care following, wean off ventilation as tolerated. 10/08: Patient had another cardiac arrest last night. Remains on mechanical ventilation, update family. Continue supportive care -poor prognosis 10/09: Called patient mother and discussed about patient care and management. Answered all question to best of my knowledge and family satisfaction. Patient remains on mechanical ventilation, cardiac arrest x2 so far. Critically sick, poor prognosis 10/10: remains on mechanical ventilation. h/h stable, no active bleeding. monitor CBC/BMP 10/11: WBC trended up with diarrhea, started on vancomycin po. remains on MV, off pressor, tolerating TF 10/12: remains on MV, off pressor, tolerating TF. called family for update but unable to reach, could not leave message as it was full. cont supportive care, wean off vent as tolerated. 10/13/2020; patient is on mechanical ventilation, tolerating tube feeding. Patient has labored breathing. Neuro was consulted and recommend MRI. Patient is on Precedex. Rectal tube in place. 10/14/2020; patient is on mechanical ventilation, Precedex. Patient had fever and blood culture ordered. Patient is on IV vancomycin per ID recommendation. Neuro consulted and recommend MRI. Continue to monitor. Prognosis is guarded. 10/15/2020; patient is on mechanical ventilation, Precedex. Patient had fever and blood culture ordered. Patient is on IV vancomycin per ID recommendation. Neuro consulted and recommend MRI. Continue to monitor. Prognosis is guarded. 12: Remains with C.DIFF and Bactermia, Poor prognosis. No purposeful movement. MRI and EEG discussed with Intensvisit, Continue aggressive BP control. 3: Blood pressure better controlled MRI done 10/15 shows mild improvement in edema. We will continue to monitor mother was at bedside yesterday. Nursing documentation trach and PEG discussed with the mother including goals of care. She is still in denial about the gravity of her daughters her condition which is understandable considering her age. Continue aggressive management at this time. Await for bacteremia to clear by ID before placing PICC line. 10/19: Patient for possible PEG and Trach, ID following, repeat cultures remain negative. Poor prognosis 10/20: Pt noted to DVT and SVT in the RUE, Vascular consult and will also obtain Hematology for possible considering changing in Anticoagulation. CONTINUE TO M ONITOR H/H and PLT. Family updated by [employer]ens[employer]. Heparin gtt started. Will check CBC and BMP 10/21: Continue supporive care, Diarrhea now resolving, But still with persistent Fever, May need repeat CT/AP per ID, still with profused Encephalopathy 10/22: Continue supportive care, weaning, awaiting repeat Imaging. FOLLOW Fever curve. Enoxparin restarted 10/23: Continue supportive care, wean as tolerated. 10/24; Started on CPAP trial, discussed with pulmonary, still with diarrhea. 10/25: Patients seen and examined, no clinical changes, still with diarrhea. ?meaningful recovery. 10/26: Clinically unchanged, continue CPAP trial, Will discuss with Neurology about re-evaluation, ?Need for repeat CT head. ?PRESS considering initial elevated BP, now stable. 10/27; tracheostomy on vent, weaning trials, vital signs noted, poor prognosis 10/28; unable to wean, tracheostomy on vent. Sepsis. Continue current management. Consults and recommendations noted and appreciated 10/30/2020;Patient on T-piece 5 L of oxygen not in acute distress, noncommunicative 11/02/2020; patient on T-piece 5 L of oxygen 11/03/2020; patient's fever slightly improved low-grade, continue current management, remains on T-piece with 5 L of oxygen 11/04/2020; T-max last 24 hours 100.3 F, new cultures negative to date, monitor off antibiotics Patient is off Levophed, blood pressures reasonable level, tracheostomy on T- piece 3 to 5 L nasal cannula oxygen 11/05/2020; tracheostomy on T-piece patient remains on 5 L of nasal cannula oxygen, unresponsive severe hypoxic brain injury I called patient's mother Ms. Pamela Bassett as well as patient's spouse Mr. Danilo Dimas at [phone] unable to reach them Left voicemail on Ms. Pamela Bassettz phone and encouraged him to call back 11/06/2020; I tried to call again today Ms. Pamela Bassett to discuss patient's condition and treatment plan and update consultants recommendations and patient's prognosis., unable to reach her 11/07/20 Will try LTAC/Hospice 11/08/20 Same condition 11/09/2020 Same condition 11/10/2020; family conference was held by case management yesterday 11/09/2020, family decided and agreed for SNF placement 11/11/2020; patient seen and examined, clinically no change tracheostomy on 5 L of nasal cannula oxygen, hemodynamically and clinically stable for discharge To LTAC versus SNF, DC planning per case management 11/12/2020; clinically no change, continue current management, DC planning per case management possible SNF placement 11/13/2020; patient is receiving herpes flareup treatment per ID 11/14/2020; clinically no change, awaiting SNF placement 11/15/2020; clinically no change, tracheostomy on T-piece on 5 L oxygen, awaiting placement 11/16/2020; patient awaiting placement 11/18/2020; abdominal CT scan negative for insulinoma or pancreatic tumor ,clinically no change Awaiting SNF placement 11/19/2020; remains on 4 L of oxygen tracheostomy via T-piece, awaiting SNF placement 11/20/2020 Awaiting SNF placement 11/21/2020 Waiting for SNF placement 11/22/2020 Waiting for placement 11/23/2020 Waiting for placement 11/24/2020 through 12/24/2020 Patient waiting for placement 11/27/2020; patient remains hypoglycemic on D10 W IV fluids, CT abdomen negative for insulinoma Remains stable awaiting SNF placement, tracheostomy on 5 L oxygen via T-piece 11/28/2020; awaiting SNF placement 11/29/2020; patient remains unresponsive, tracheostomy on T-piece, on 4 to 5 L of oxygen Wean as tolerated, DC planning per case management possible SNF placement 11/30/2020; awaiting SNF placement 12/02/2020; awaiting placement, stable for discharge 12/03/2020; clinically no change, awaiting placement, tracheostomy on T-piece, anoxic brain injury 12/04/2020 Patient has anoxic encephalopathy with anoxic brain brain injury Awaiting placement 12/05/2020; anoxic brain injury, awaiting placement. 12/06/20; anoxic brain injury. Awaiting placement. 12/07/2020; anoxic brain injury, awaiting placement. 12/09/2020; anoxic brain injury, awaiting placement. 12/10/2020; patient had episodes of fever overnight. CBC, BMP, blood culture, UA and chest x-ray ordered, will follow and manage accordingly. Urinalysis is suggestive of UTI and I put the patient on ceftriaxone, order urine culture. Chest x-ray is normal. 12/11/2020; patient is on ceftriaxone day 2 for UTI. We will continue to follow urine culture. 12/12/2020. Day #3 of Rocephin for UTI. We will continue for 2 more days while she is here. Present UTI. 12/13/2020. Day #4 of Rocephin for UTI. Patient remains on 50% with tracheostomy. Remains unresponsive with evidence of anoxic encephalopathy unable to make needs known. 12/14/2020. Day #5 of Rocephin for UTI completed today. Remains encephalopathic unable to make needs known. Remains on 50% unable to decrease oxygen via tracheostomy. Overall prognosis remains extremely poor. 12/15: Continue to monitor. Stop and monitor antibiotics at this time. Continue to wean oxygen as tolerated. Wean oxygen as tolerated. Case management working on placement. 12/16: Continue supportive care aspiration precautions. Awaiting placement discussion. Monitor fever curve. Prognosis remains poor no evidence of neurological recovery as of today 12/17: Continue supportive care, check labs and chest xray. Still monitor off antibiotics. Monitor Sodium level 12/18: Patient remains with intermittent low grade fever, reviewed EEG from September again, consistent for Ischemic Hypoxic Encephalopathy, patient with decorticating posturing type presentation. Will discuss with office services representative to optimize diet so we can discontinue D5. CXR with no abnormality. Discussed extensively with the nursing staff at bedside CXR IMPRESSION: 1. No acute findings. 12/19: No clinical change 12/20: No clinical change, now off abx, monitor, discussed her medications with our pharmacist I believe that her posture and rigidity is likely from underlying anoxic encephalopathy. Continue to monitor and await placement decision. Continue aggressive suctioning. Plan discussed in detail with the nursing staff 12/21: Continue supportive care. Will give 500 cc bolus of fluid today to replace insensible losses. Tachycardia appears to be improving. Blood pressure precludes adjusting cardiac meds. Still awaiting placement from case management. Plan discussed in detail with the nursing staff 12/22. Continue support supportive care. Tracheostomy and PEG in place. Remains nonresponsive. Awaiting placement. 12/23. Continue support supportive care. Tracheostomy and PEG in place. Remains nonresponsive. Awaiting placement. Remains tachycardic. Decrease dose of lasix. Will try low dose metoprolol. Monitor BP closely 12/24. Continue support supportive care. Tracheostomy and PEG in place. Remains nonresponsive. Awaiting placement. Heart rate slightly better. Continue to monitor BP closely 12/25. Continue support supportive care. Tracheostomy and PEG in place. Remains nonresponsive. Awaiting placement. 12/26. Continue support supportive care. Tracheostomy and PEG in place. Remains nonresponsive. Awaiting placement 12/27. Continue support supportive care. Tracheostomy and PEG in place. Remains nonresponsive. Awaiting placement 12/28. Had fever yesterday. Blood culture drawn. UA - UTI - started on antibiotics. Now tracheal aspirate is growing GN rods. 12/29: Continue IV antibiotics, continue supportive care. Since admission patient has shown minimal or no chance of neurological recovery. Need 24/7 assistance. Currently on trach and PEG, nonverbal. Waiting on SNF placement. Discussed with caser shoe parts today. 12/30: Continue IV antibiotics for UTI, continue supportive care. Pending placement 12/31: continue supportive care. continue supportive care. Pending placement 01/01: continue supportive care. Pending placement. cont Iv abx for UTI till 01/04 01/02: Continue supportive care, pending placement. Sodium level slightly elevated, will start hypotonic fluid. Continue antibiotics till 01/04 01/03; cont hypotonic fluid, increase free water with TF for hypernatremia, follow BMP. cont supportive care. pending placement. cont cefepime. recx blood 01/04: resolved hyponatremia, cont supportive care, pending placement. Last day of supplement today. 01/05: Continue supportive care, pending placement. Monitor H&H and fever curve off antibiotic. 01/06; monitor off abx, suction as needed, Continue supportive care, pending placement. 01/07: Discharge pending on placement, vitals stable. Continue supportive care 01/08: Discharge pending on placement, vitals stable. Continue supportive care. stop lasix, increase metoprolol to 25mg BID for ST. 01/09 patient resting with eyes closed. Opens eyes to tactile stimulus, has a blink reflex, does not follow simple commands, has a T-collar / G-tube Lab results reviewed, low-grade fever, 01/10 Eyes open, does not follow simple commands, no acute events overnight 01/11 no acute events overnight, Waiting for placement 01/12 No acute events overnight. Patient awaiting for placement 01/13. No new issues. Awaiting placement 01/14. No new issues. Awaiting placement. 01/15. No new issues. Awaiting placement. 01/16. No new issues. Patient remain stable. Awaiting placement. Check maintenance labs. 01/17. Routine maintenance labs were ordered and are still pending. Await placement. 01/18. Patient with low-grade fever past 24-48 hrs. WBC within normal limits. Check chest x-ray, urinalysis and consider blood cultures. Continue tracheostomy care, secretion control and airway management. Patient currently with PEG and tube feedings at 60 cc an hour. Nutritional support and aspiration precautions. 01/19. Temperature 100.7 overnight. Continue to monitor closely. Continue tracheostomy care, secretion control and airway management. Patient currently with PEG and tube feedings at 60 cc an hour. Nutritional support and aspiration precautions. 01/20. Continue to monitor closely. Continue tracheostomy care, secretion control and airway management. Patient currently with PEG and tube feedings at 60 cc an hour. Nutritional support and aspiration precautions. 01/21. Afebrile overnight. Continue to monitor closely. Continue tracheostomy care, secretion control and airway management. Patient currently with PEG and tube feedings at 60 cc an hour. Nutritional support and aspiration precautions. 01/22. Continue to monitor closely. Continue tracheostomy care, secretion control and airway management. Patient currently with PEG and tube feedings at 60 cc an hour. Nutritional support and aspiration precautions. 01/23. Continue tracheostomy care, secretion control and airway management. Patient currently with PEG and tube feedings at 60 cc an hour. Nutritional support and aspiration precautions. Will get routine labs tomorrow. 01/24. Labs reviewed. No abnormalities. Continue tracheostomy care, secretion control and airway management. Patient currently with PEG and tube feedings at 60 cc an hour. Nutritional support and aspiration precautions. 01/25. Temp 100.6. More sleepy today. Will get chest xray, blood culture, urinalysis, sputum cultures. Will start on empirical abx. 01/26: Vitals noted, slightly tachycardic. Follow culture work-up, continue supportive care. 01/27: Spiking low-grade temp, negative UA, sputum culture and recent blood cultures also negative. Continue to monitor off antibiotics. Continue supportive care. Pending placement. 01/28: cont to spike low grade temp, negative UA, sputum culture and recent blood cultures also negative. Continue to monitor off antibiotics. will order fpr sinus xry. Continue supportive care. Pending placement. 01/29: Continue to follow clinically, intermittently spiking low-grade temp, all recent culture work is negative, negative UA, normal respiratory jaylan 1 tracheal aspirate. Vitals noted and currently stable. Pending placement 01/30: Clinically unchanged, continue to monitor vitals, continue supportive cares. Pending placement. Discussed plan of care with RN at the bedside. 01/31 - TODATE: cont supportive care, pending placement. monitor vitals carefully. Discussed with family at the bedside. 02/06. Patient afebrile today. Continue trach care. Secretions stable today. Culture data negative so far. Awaiting placement. 02/07. Awaiting placement awaiting family member to evaluate papers. Continue trach care secretions stable. Pending placement 02/09: Intermittent fever, ?drug related, will check cxr and also labs. No new complaints. 02/10: Patient's trach dislodged today. Nevertheless respiratory status is intact attempt to reinsert was unsuccessful will monitor discussed with nursing staff to pay close attention to the patient. Considering that this was not a planned decannulation I will start the patient on continuous pulse ox until full evaluation was done by pulmonary. 02/13/2021 Vital signs stable Unresponsive secondary to anoxic encephalopathy Awaiting placement 02/14/2021 Awaiting placement 02/15/2021 Anoxic encephalopathy Awaiting placement 02/16/2021 Anoxic encephalopathy Awaiting placement 02/17/2021 Anoxic encephalopathy awaiting placement 02/18/2021 Anoxic encephalopathy awaiting placement 02/19/2021 Anoxic encephalopathy awaiting placement 02/20/2021 Anoxic encephalopathy awaiting placement 02/21/2021 Anoxic encephalopathy awaiting placement 02/22/2021 Anoxic encephalopathy awaiting placement 02/23/2021 Anoxic encephalopathy awaiting placement 02/24/2021 Anoxic encephalopathy awaiting placement 02/25/2021 Anoxic encephalopathy waiting for placement 02/26 Awaiting placement 02/27. Awaiting placement 02/28. No change in medical condition. Awaiting placement 03/01. No medical changes noted. Awaiting placement Hospitalist Physical - Physical exam Narrative exam: VITAL SIGNS: Reviewed. GENERAL: Trach in place HEAD: No signs of head trauma. EYES: Pupils are equal. NECK: No adenopathy, no JVD. CHEST: Diminished breath sounds CARDIAC: normal S1 and S2, without murmurs, gallops, or rubs. ABDOMEN: Soft, non tender and non distended. No rebound or guarding, and no masses palpated. Bowel Sounds normal MUSCULOSKELETAL: No edema NEUROLOGIC EXAM: Not responsive SKIN: No obvious lesions - Constitutional Vitals: Temp Pulse Resp BP Pulse Ox 98.8 F 104 H 18 113/75 97 03/01/21 04:57 03/01/21 04:57 03/01/21 04:57 03/01/21 04:57 03/01/21 04:57 HEART Score - HEART Score Age: < 45 Risk factors: 1-2 risk factors - Critical Actions Critical Actions: >7 pts:50-65% risk of adverse cardiac event. Early invasive measures Results - Labs CBC & Chem 7: 02/12/21 04:09 02/12/21 04:09 Labs: Laboratory Last Values WBC 6.0 K/mm3 (4.5-11.0) 02/12/21 04:09 RBC 5.03 M/mm3 (3.65-5.03) 02/12/21 04:09 Hgb 11.7 gm/dl (10.1-14.3) 02/12/21 04:09 Hgb Comment See scanned result 10/04/20 Unknown Hct 37.0 % (30.3-42.9) 02/12/21 04:09 MCV 74 fl (79-97) L 02/12/21 04:09 MCH 23 pg (28-32) L 02/12/21 04:09 MCHC 32 % (30-34) 02/12/21 04:09 RDW 14.1 % (13.2-15.2) 02/12/21 04:09 Plt Count 267 K/mm3 (140-440) 02/12/21 04:09 Lymph % (Auto) 17.6 % (13.4-35.0) 02/11/21 16:15 [place] % (Auto) 13.2 % (0.0-7.3) H 02/11/21 16:15 Eos % (Auto) 0.7 % (0.0-4.3) 02/11/21 16:15 Baso % (Auto) 0.4 % (0.0-1.8) 02/11/21 16:15 Lymph # (Auto) 1.4 K/mm3 (1.2-5.4) 02/11/21 16:15 [place] # (Auto) 1.1 K/mm3 (0.0-0.8) H 02/11/21 16:15 Eos # (Auto) 0.1 K/mm3 (0.0-0.4) 02/11/21 16:15 Baso # (Auto) 0.0 K/mm3 (0.0-0.1) 02/11/21 16:15 Add Manual Diff Complete 02/09/21 10:59 Total Counted 100 02/09/21 10:59 Seg Neutrophils % 68.1 % (40.0-70.0) 02/11/21 16:15 Seg Neuts % (Manual) 58.0 % (40.0-70.0) 02/09/21 10:59 Band Neutrophils % 2.0 % 10/15/20 05:50 Lymphocytes % (Manual) 29.0 % (13.4-35.0) 02/09/21 10:59 Reactive Lymphs % (Man) 1.0 % 10/02/20 12:18 Monocytes % (Manual) 13.0 % (0.0-7.3) H 02/09/21 10:59 Eosinophils % (Manual) 1.0 % (0.0-4.3) 10/29/20 07:56 Myelocytes % 2.0 % 10/02/20 13:05 Metamyelocytes % 1.0 % 10/14/20 04:00 Nucleated RBC % Not Reportable 02/09/21 10:59 Seg Neutrophils # 5.6 K/mm3 (1.8-7.7) 02/11/21 16:15 Seg Neutrophils # Man 3.7 K/mm3 (1.8-7.7) 02/09/21 10:59 Band Neutrophils # 0.0 K/mm3 02/09/21 10:59 Lymphocytes # (Manual) 1.8 K/mm3 (1.2-5.4) 02/09/21 10:59 Abs React Lymphs (Man) 0.0 K/mm3 02/09/21 10:59 Monocytes # (Manual) 0.8 K/mm3 (0.0-0.8) 02/09/21 10:59 Eosinophils # (Manual) 0.0 K/mm3 (0.0-0.4) 02/09/21 10:59 Basophils # (Manual) 0.0 K/mm3 (0.0-0.1) 02/09/21 10:59 Metamyelocytes # 0.0 K/mm3 02/09/21 10:59 Myelocytes # 0.0 K/mm3 02/09/21 10:59 Promyelocytes # 0.0 K/mm3 02/09/21 10:59 Blast Cells # 0.0 K/mm3 02/09/21 10:59 WBC Morphology Not Reportable 02/09/21 10:59 Hypersegmented Neuts Not Reportable 02/09/21 10:59 Hyposegmented Neuts Not Reportable 02/09/21 10:59 Hypogranular Neuts Not Reportable 02/09/21 10:59 Smudge Cells Not Reportable 02/09/21 10:59 Toxic Granulation Not Reportable 02/09/21 10:59 Toxic Vacuolation Not Reportable 02/09/21 10:59 Dohle Bodies Not Reportable 02/09/21 10:59 Pelger-Huet Anomaly Not Reportable 02/09/21 10:59 Ester Rods Not Reportable 02/09/21 10:59 Platelet Estimate Consistent w auto 02/09/21 10:59 Clumped Platelets Not Reportable 02/09/21 10:59 Plt Clumps, EDTA Not Reportable 02/09/21 10:59 Large Platelets Few 02/09/21 10:59 Giant Platelets Not Reportable 02/09/21 10:59 Platelet Satelliting Not Reportable 02/09/21 10:59 Plt Morphology Comment Not Reportable 02/09/21 10:59 RBC Morphology Not Reportable 02/09/21 10:59 Dimorphic RBCs Not Reportable 02/09/21 10:59 Polychromasia Not Reportable 02/09/21 10:59 Hypochromasia 1+ 02/09/21 10:59 Poikilocytosis Not Reportable 02/09/21 10:59 Anisocytosis Not Reportable 02/09/21 10:59 Microcytosis Not Reportable 02/09/21 10:59 Macrocytosis Not Reportable 02/09/21 10:59 Spherocytes Not Reportable 02/09/21 10:59 Pappenheimer Bodies Not Reportable 02/09/21 10:59 Sickle Cells Not Reportable 02/09/21 10:59 Target Cells Not Reportable 02/09/21 10:59 Tear Drop Cells Not Reportable 02/09/21 10:59 Ovalocytes Not Reportable 02/09/21 10:59 Stomatocytes Few 10/14/20 04:00 Helmet Cells Not Reportable 02/09/21 10:59 [place] Bodies Not Reportable 02/09/21 10:59 Delmar Rings Not Reportable 02/09/21 10:59 [place] Cells Not Reportable 02/09/21 10:59 Bite Cells Not Reportable 02/09/21 10:59 Crenated Cell Not Reportable 02/09/21 10:59 Elliptocytes Not Reportable 02/09/21 10:59 Acanthocytes (Spur) Not Reportable 02/09/21 10:59 Rouleaux Not Reportable 02/09/21 10:59 Hemoglobin C Crystals Not Reportable 02/09/21 10:59 Schistocytes Not Reportable 02/09/21 10:59 Malaria parasites Not Reportable 02/09/21 10:59 Sickle Cell Solubility See scanned result 10/04/20 Unknown Hemoglobin A See scanned result 10/04/20 Unknown Hemoglobin A2 See scanned result 10/04/20 Unknown Hemoglobin A2 Prime See scanned result 10/04/20 Unknown Hemoglobin C See scanned result 10/04/20 Unknown Hemoglobin D See scanned result 10/04/20 Unknown Hemoglobin E See scanned result 10/04/20 Unknown Hgb F Diffential Stain See scanned result 10/04/20 Unknown Hemoglobin F Quant See scanned result 10/04/20 Unknown Hemoglobin G See scanned result 10/04/20 Unknown Hemoglobin S See scanned result 10/04/20 Unknown Hemoglobin O-Joaquin See scanned result 10/04/20 Unknown Hemoglobin Barts See scanned result 10/04/20 Unknown Hemoglobin Analilia See scanned result 10/04/20 Unknown Variant Hemoglobin See scanned result 10/04/20 Unknown Abnorm Hgb IEF Confirm See scanned result 10/04/20 Unknown Hemoglobin Interpret See scanned result 10/04/20 Unknown Hemoglobinopathy Note See scanned result 10/04/20 Unknown Sharad Bodies Not Reportable 02/09/21 10:59 Hem Pathologist Commnt No 02/09/21 10:59 PT 13.6 Sec. (12.2-14.9) 10/21/20 13:54 INR 1.06 (0.87-1.13) 10/21/20 13:54 APTT 31.6 Sec. (24.2-36.6) 10/03/20 00:40 Fibrinogen 336 mg/dl (211-480) 10/04/20 10:00 D-Dimer 1974.47 ng/mlDDU (0-234) H 11/11/20 13:50 ABG pH 7.459 pH Units (7.350-7.450) H 10/26/20 10:30 POC ABG pCO2 20.7 mmHg (32.0-48.0) L 10/13/20 07:18 ABG pCO2 32.4 mm Hg 10/26/20 10:30 POC ABG pO2 137.9 mmHg (83-108) H 10/13/20 07:18 ABG pO2 112.2 mm Hg (80.0-90.0) H 10/26/20 10:30 POC ABG HCO3 14.8 10/13/20 07:18 ABG HCO3 22.5 mmol/L (20.0-26.0) 10/26/20 10:30 ABG O2 Saturation 98.2 % (95.0-99.0) 10/26/20 10:30 ABG O2 Content 18.5 (0.0-44) 10/26/20 10:30 POC ABG Base Excess -6.9 10/13/20 07:18 ABG Base Excess -0.6 mmol/L (-2.0-3.0) 10/26/20 10:30 ABG Hemoglobin 13.5 gm/dl (12.0-16.0) 10/26/20 10:30 ABG Oxyhemoglobin 98.3 (94-98) H 10/13/20 07:18 ABG Carboxyhemoglobin 1.3 % (0.0-5.0) 10/26/20 10:30 ABG Methemoglobin 0.5 % (0.0-1.5) 10/26/20 10:30 ABG Sodium 135.9 mmol/L (136.0-145.0) L 10/13/20 07:18 ABG Potassium 3.7 mmol/L (3.40-4.50) 10/13/20 07:18 ABG Chloride 111.0 mmol/L (98-107) H 10/13/20 07:18 ABG Glucose 109 mg/dL (65-95) H 10/13/20 07:18 VBG pH 6.949 (7.320-7.420) L* 10/02/20 Unknown Oxyhemoglobin 96.5 % (95.0-99.0) 10/26/20 10:30 Carboxyhemoglobin 0.3 (0.5-1.5) L 10/13/20 07:18 FiO2 25 % 10/26/20 10:30 Sodium 137 mmol/L (137-145) 02/12/21 04:09 Potassium 4.4 mmol/L (3.6-5.0) 02/12/21 04:09 Chloride 100.6 mmol/L (98-107) 02/12/21 04:09 Carbon Dioxide 27 mmol/L (22-30) D 02/12/21 04:09 Anion Gap 14 mmol/L 02/12/21 04:09 BUN 9 mg/dL (7-17) 02/12/21 04:09 Creatinine 0.5 mg/dL (0.6-1.2) L 02/12/21 04:09 Estimated GFR > 60 ml/min 02/12/21 04:09 BUN/Creatinine Ratio 18 % 02/12/21 04:09 Glucose 107 mg/dL (65-100) H 02/12/21 04:09 POC Glucose 100 mg/dL (70-105) 03/01/21 05:31 Random Insulin 43.2 uIU/mL (<=19.6) H 11/02/20 19:19 Proinsulin See scanned result 11/02/20 19:19 C-Peptide 6.23 ng/mL (0.80-3.85) H 11/02/20 19:19 Lactic Acid 1.90 mmol/L (0.7-2.0) 10/04/20 22:00 Uric Acid 7.5 mg/dL (3.5-7.6) 10/02/20 13:05 Calcium 9.2 mg/dL (8.4-10.2) 02/12/21 04:09 Ionized Calcium 4.4 mg/dL (4.8-5.6) L 10/07/20 21:00 Phosphorus 4.60 mg/dL (2.5-4.5) H 11/13/20 10:05 Magnesium 2.10 mg/dL (1.7-2.3) 11/13/20 10:05 Total Bilirubin 0.30 mg/dL (0.1-1.2) 01/24/21 04:18 AST 31 units/L (5-40) 01/24/21 04:18 ALT 21 units/L (7-56) 01/24/21 04:18 Alkaline Phosphatase 92 units/L (35-129) 01/24/21 04:18 Lactate Dehydrogenase 769 units/L (91-180) H 10/02/20 13:05 C-Reactive Protein 0.70 mg/dL (0.00-1.30) 11/11/20 13:50 NT-Pro-B Natriuret Pep 2788 pg/mL (0-450) H 10/04/20 10:00 Total Protein 7.7 g/dL (6.3-8.2) 01/24/21 04:18 Albumin 3.7 g/dL (3.9-5) L 01/24/21 04:18 Albumin/Globulin Ratio 0.9 % 01/24/21 04:18 Procalcitonin < 0.05 ng/mL (<0.15) 12/27/20 20:16 Arterial Blood Glucose 109 mg/dL (65-95) H 10/13/20 07:18 Arterial Blood Ionized Calcium 4.6 mg/dL (4.6-5.3) 10/13/20 07:18 Urine Color Yellow (Yellow) 01/25/21 09:51 Urine Turbidity Cloudy (Clear) 01/25/21 09:51 Urine pH 7.0 (5.0-7.0) 01/25/21 09:51 Ur Specific [place] 1.011 (1.003-1.030) 01/25/21 09:51 Urine Protein <15 mg/dl mg/dL (Negative) 01/25/21 09:51 Urine Glucose (UA) Neg mg/dL (Negative) 01/25/21 09:51 Urine Ketones Neg mg/dL (Negative) 01/25/21 09:51 Urine Blood Neg (Negative) 01/25/21 09:51 Urine Nitrite Neg (Negative) 01/25/21 09:51 Urine Bilirubin Neg (Negative) 01/25/21 09:51 Urine Urobilinogen < 2.0 mg/dL (<2.0) 01/25/21 09:51 Ur Leukocyte Esterase Neg (Negative) 01/25/21 09:51 Urine WBC (Auto) 6.0 /HPF (0.0-6.0) 01/25/21 09:51 Urine RBC (Auto) 3.0 /HPF (0.0-6.0) 01/25/21 09:51 U Epithel Cells (Auto) < 1.0 /HPF (0-13.0) 01/25/21 09:51 Urine Bacteria (Auto) 1+ /HPF (Negative) 01/18/21 08:47 Urine WBC Clumps 3+ /HPF 11/11/20 13:50 Calcium Oxalate Crystal Few 11/11/20 13:50 Urine Mucus Few /HPF 01/25/21 09:51 Urine Yeast (Budding) 2+ /HPF 01/25/21 09:51 Vancomycin Trough 12.6 ug/mL (5.0-20.0) 10/21/20 13:54 Random Vancomycin 10.7 ug/mL (0-40.0) 10/16/20 13:09 Phenytoin 5.7 ug/mL (10.0-20.0) L 10/13/20 07:00 C. difficile Tox (PCR) Positive (Negative) 10/16/20 10:22 Coronavirus (PCR) Negative (Negative) 10/08/20 14:15 Blood Type O POSITIVE 10/02/20 12:50 Antibody Screen Negative 10/02/20 12:50 Crossmatch See Detail 10/02/20 12:50 - Diagnostic Impressions Diagnostic Impressions: Echocardiogram 10/03/20 13:42 Transthoracic Echocardiogram Indication: S/P Cardiac Arrest R/O Cardiomyopathy BP: 133/71 Conclusions *Global left ventricular systolic function is normal. *The estimated ejection fraction is 60-65%. *There is trace of mitral regurgitation. *The right 0heart chambers are both slightly dilated. *There is mild tricuspid regurgitation. *There is mild-moderate pulmonary hypertension. *The right ventricular systolic pressure is calculated at 44 mmHg. *The study quality is technically difficult. Findings Procedure Info: The study quality is technically difficult. The study is technically limited due to patient body habitus. The study was technically limited due to the patient's inability to lay in the left lateral decubitus position. Left Ventricle: The left ventricular chamber size is normal. There is no left ventricular hypertrophy. Global left ventricular systolic function is normal. The estimated ejection fraction is 60-65%. Left Atrium: The left atrial chamber size is normal. Right Ventricle: The right ventricle is slightly dilated. Right Atrium: The right atrium is mildly dilated. Aortic Valve: The aortic valve leaflets are mildly thickened. There is no evidence of aortic regurgitation. There is no evidence of aortic stenosis. Mitral Valve: The mitral valve leaflets are mildly thickened. There is trace of mitral regurgitation. There is no evidence of mitral stenosis. Tricuspid Valve: There is mild tricuspid regurgitation. The right ventricular systolic pressure is calculated at 44 mmHg. There is evidence of mild pulmonary hypertension. Pulmonic Valve: There is trace pulmonic regurgitation. Pericardium: There is no pericardial effusion. Aorta: There is no dilatation of the ascending aorta. There is no dilatation of the aortic root. Venous: The inferior vena cava is dilated. Measurements Chambers 2D Name Value Normal Range IVSd (2D) 1 cm (0.6 - 1.1) LVPWd (2D) 1.01 cm (0.6 - 1.1) LVIDd (2D) 4.58 cm (3.7 - 5.6) LVIDs (2D) 3.17 cm (2 - 3.8) LV FS (2D) 30.93 % - EF Teichholz (2D) 58.66 % - Ao root diameter (2D) 2.94 cm (2 - 3.7) Volumes/Mass Name Value Normal Range LA ESV SP 4CH (A/L) 72.82 ml - LA ESV SP 2CH (A/L) 66.86 ml - LA ESV BP (A/L) 74.49 ml - LA ESV SP 4CH (MOD) 71.03 ml - LA ESV SP 2CH (MOD) 64.3 ml - LV EDV SP 4CH (MOD) 98.82 ml - LV ESV SP 4CH (MOD) 24.8 ml - EF SP 4CH (MOD) 74.9 % - LV EDV SP 2CH (MOD) 86.1 ml - LV ESV SP 2CH (MOD) 36.93 ml - EF SP 2CH (MOD) 57.11 % - LV EDV BP 94.4 ml - LV ESV BP 32.66 ml - BP EF (MOD) 65.4 % - Diastolic/Systolic Function Name Value Normal Range MV E-wave Vmax 1.04 m/sec - MV deceleration time 160.46 msec - MV A-wave Vmax 0.92 m/sec - MV E:A ratio 1.14 ratio - Aortic Valve Name Value Normal Range AV Vmax 2.12 m/sec - AV VTI 22.37 cm - AV peak gradient 17.95 mmHg - AV mean gradient 7.29 mmHg - LVOT diameter 2.01 cm - LVOT Vmax 1.8 m/sec - LVOT VTI 27.17 cm - LVOT peak gradient 12.91 mmHg - LVOT mean gradient 6.83 mmHg - SV LVOT 86.42 ml - ANITA (continuity Vmax) 2.7 cm2 - ANITA (continuity VTI) 3.86 cm2 - Ascending Ao 3.18 cm - Tricuspid Valve Name Value Normal Range TV E-wave Vmax 0.88 m/sec - TR Vmax 3.01 m/sec - TR peak gradient 36.27 mmHg - RAP 8 mmHg - RVSP 44 mmHg - IVC diameter 2.65 cm (1.2 - 2.3) Pulmonic Valve/Qp:Qs Name Value Normal Range PV Vmax 1.22 m/sec - PV peak gradient 5.91 mmHg - RVOT Vmax 0.87 m/sec - RVOT VTI 13.32 cm - RVOT peak gradient 3 mmHg - PV acceleration time 110.37 msec - [place]/IV: Voiding Method External Female Catheter IV Catheter Type [Right Foot] INT / Saline Lock IV Catheter Type [Left Forearm Peripheral IV ] IV Catheter Type [Left Wrist] INT / Saline Lock IV Catheter Type [Right Hand] INT / Saline Lock IV Catheter Type [Right INT / Saline Lock Antecubital] IV Catheter Type [Right Upper Mid-line arm] IV Catheter Type [Left Triple Lumen Cath Internal Jugular] IV Catheter Type [Left Hand] Peripheral IV IV Catheter Type [Left Peripheral IV Antecubital] Active Medications - Current Medications Current Medications: Generic Name Dose Route Start Last Admin Trade Name Freq PRN Reason Stop Dose Admin Acetaminophen 650 mg 10/05/20 16:34 02/25/21 14:50 Acetaminophen 325 Mg/10.15 Ml Oral Liqd Unit Dose FEEDTUBE 650 mg Q6H PRN Administration Non Cardiac Pain or Temp>100.5 Albuterol 2.5 mg 11/05/20 13:03 11/06/20 13:04 Albuterol 2.5 Mg/3 Ml Nebu IH 2.5 mg Q4HRT PRN Administration Shortness Of Breath Alprazolam 0.25 mg 01/20/21 13:33 02/23/21 22:06 Alprazolam 0.25 Mg Tab PO 0.25 mg Q8H PRN Administration Anxiety Lipase/Protease/Amylase 1 each 10/05/20 11:09 Lipase 10,500/Protease 25,000/Amylase 43,750 (Units) Dr Barakat FEEDTUBE PRN PRN For Clogged Feeding Tube Enoxaparin Sodium 40 mg 10/22/20 10:00 02/28/21 10:51 Enoxaparin 40 Mg/0.4 Ml Inj SUB-Q 40 mg DAILY ERINN Administration Protocol Famotidine 20 mg 10/07/20 10:00 02/28/21 22:43 Famotidine 20 Mg Tab PO 20 mg BID ERINN Administration Hydralazine HCl 20 mg 10/07/20 11:49 10/17/20 07:20 Hydralazine 20 Mg/1 Ml Inj IV 20 mg Q6H PRN Administration SBP >170 Hydrophilic Ointment 1 applic 01/03/21 13:00 02/16/21 09:56 Lip Therapy Vaseline TP 1 applic DIRECT PRN Administration Dry Lips Dextrose 1,000 mls @ 30 mls/hr 01/03/21 12:00 02/11/21 18:44 D5w IV 30 mls/hr DIRECT ERINN Administration Metoprolol Tartrate 50 mg 02/02/21 16:01 02/28/21 22:43 Metoprolol Tartrate 25 Mg Tab PO 50 mg BID ERINN Administration Morphine Sulfate 2 mg 01/20/21 13:33 Morphine 2 Mg/1 Ml Inj IV Q4H PRN Pain, Moderate (4-6) Ondansetron HCl 4 mg 02/10/21 11:38 02/10/21 13:18 Ondansetron 4 Mg/2 Ml Inj IV 4 mg Q4H PRN Administration Nausea And Vomiting Simple Syrup 15 ml 10/05/20 11:09 Simple Syrup 15 Ml FEEDTUBE PRN PRN Hypoglycemia Simple Syrup 30 ml 10/05/20 11:09 Simple Syrup 15 Ml FEEDTUBE PRN PRN Hypoglycemia Sodium Bicarbonate 325 mg 10/05/20 11:09 12/16/20 08:19 Sodium Bicarbonate 325 Mg Tab FEEDTUBE 325 mg PRN PRN Administration For Clogged Feeding Tube Nutrition/Malnutrition Assess - Dietary Evaluation Nutrition/Malnutrition Findings: Nutrition Notes Start: 10/04/20 11:13 Freq: Status: Active Protocol: Document 02/24/21 09:40 AT (Rec: 02/24/21 09:51 AT [id number]) Co-Sign 02/24/21 09:40 LP Nutrition Notes Initial or Follow up Reassessment Current Diagnosis Respiratory Failure Other Pertinent Diagnosis s/p cardiac arrest x 2, anoxic brain injury Current Diet Promote at 65ml/hr Labs/Tests No new labs Pertinent Medications Reviewed Height 5 ft 8 in Weight 90.2 kg [place] Body Weight (kg) 63.63 BMI 30.2 Weight change and time frame 28% wt loss in 5 months (adm wt 124.738 kg) due to post- Weight Status Obese Subjective/Other Information Follow up for stable TF. Visited pt at bedside and observed Promote running at goal rate of 65 mL/hr. Per chart, pt is tolerating TF without issue. Percent of energy/protein needs met: 100%/98% Burn Absent Trauma Absent GI Symptoms None Difficulty In Swallowing,Chewing Food Allergy Yes Current % PO Negligible Minimum of two criteria Yes Interpretation of Weight Loss (severe) >2% in 1 week Fluid Accumulation Moderate to Severe (severe) #2 Nutrition Diagnosis Malnutrition Diagnosis Progress(for reassessment Continues documentation) #1 Nutrition Diagnosis Inadequate oral intake Diagnosis Progress(for reassessment Continues documentation) Is patient on ventilator? No Is Patient Ambulatory and/or Out of Bed No REE-([place]-confined to bed) 1993.592 Kcal/Kg value to use for calculation 17 Approximate Energy Requirements Using 1533 kcal/Kg Calculation Used for Recommendations Kcal/kg Additional Notes PRO needs: 96-116g (1.25-1.5 g /kg AdBW 77kg) Fluid needs: 1 mL/kcal or per MD Nutrition Intervention Change Diet Order: Continue Nutrition Support: Promote at 65 mL/hr Flush 50 mL q4h Kcal 1,560 Protein (gm) 98 Fluid (mL) 1,309 Goal #1 TF tolerance Goal #2 TF to meet at least 75% estimated energy and protein needs Anticipated Discharge Needs: Promote at 65 ml/hr Flush 50 ml q4h Follow-Up By: 03/03/21 Additional Comments F/U for stable TF, wound status
[2021-03-01] MEDS: FAMOTIDINE 20 MG TAB PO SCH ×2 (11:01→21:55)
[2021-03-01] MEDS: ENOXAPARIN 40 MG/0.4 ML INJ SUB-Q SCH (11:01)
[2021-03-01] MEDS: METOPROLOL TARTRATE 25 MG TAB PO SCH ×2 (11:10→22:57)
[2021-03-01] MEDS: ACETAMINOPHEN 325 MG/10.15 ML ORAL LIQD UNIT DOSE FEEDTUBE PRN ×2 (16:21→21:58)
[2021-03-01] MEDS: ALPRAZolam 0.25 MG TAB PO PRN (21:57)
[2021-03-02 03:12] LABS: Basophils % (Auto) 0.4 % (0.0-1.8); Eosinophils # (Auto) 0.1 K/mm3 (0.0-0.4); Eosinophils % (Auto) 1.4 % (0.0-4.3); Hematocrit 43.1 % (30.3-42.9); Hemoglobin 13.6 gm/dl (10.1-14.3); Lymphocytes # (Auto) 2.6 K/mm3 (1.2-5.4); Lymphocytes % (Auto) 33.1 % (13.4-35.0); Mean Corpuscular HGB Conc 32 % (30-34); Mean Corpuscular Volume 76 fl (79-97); Monocytes # (Auto) 0.6 K/mm3 (0.0-0.8); Monocytes % (Auto) 7.5 % (0.0-7.3); Platelet Count 268 K/mm3 (140-440); Red Blood Count 5.65 M/mm3 (3.65-5.03); Red Cell Distribution Width 15.3 % (13.2-15.2)
[2021-03-02 03:27] LABS: Alanine Aminotransferase 56 units/L (7-56); Albumin 4.4 g/dL (3.9-5); Blood Urea Nitrogen 15 mg/dL (7-17); Calcium 9.9 mg/dL (8.4-10.2); Hemolysis Index 2
[2021-03-02 03:29] LABS: BUN/Creatinine Ratio 30
--- NOTE | 2021-03-02 08:38 | XRay Report ---
CHEST 1 VIEW 03/02/2021 7:11 AM INDICATION / CLINICAL INFORMATION: fever. COMPARISON: 02/10/2021 FINDINGS: SUPPORT DEVICES: None. HEART / MEDIASTINUM: No significant abnormality. LUNGS / PLEURA: No significant pulmonary or pleural abnormality. No pneumothorax. ADDITIONAL FINDINGS: No significant additional findings. IMPRESSION: 1. No acute findings. Signer Name: Dhaval Obregon MD Signed: 03/02/2021 8:33 AM Workstation Name: [email or web address]
[2021-03-02] MEDS: ENOXAPARIN 40 MG/0.4 ML INJ SUB-Q SCH (10:00)
[2021-03-02] MEDS: METOPROLOL TARTRATE 25 MG TAB PO SCH ×2 (10:00→21:53)
[2021-03-02] MEDS: FAMOTIDINE 20 MG TAB PO SCH ×2 (10:00→21:53)
--- NOTE | 2021-03-02 10:19 | Progress Note ---
Assessment and Plan Assessment and plan: --DIC (disseminated intravascular coagulation) vs HELLP syndrome Resolved --Possible Eclampsia/HELLP Syndrome Resolved --s/p Cardiac arrest x2 on admission and on 10/07 ACLS protocol followed by revival Echo showed preserved Ef --Anoxic brain injury, Developed following cardiac arrest, continue supportive care --Shock-resolved now awaiting placement s/p pressor support --ADOLPH-resolved Stable --Sepsis 2/2 UTI Resolved --Hypernatremia, resolved, cont free water with TF Resolved --DVT prophylaxis - lovenox Disposition - Pending placement History Interval history: 1 y/o female patient with Eclampsia/help syndrome, s/p emergent section with DIC, hemorrhage, supracervical abdominal hysterectomy, acute respiratory failure , tracheostomy on T-piece with morbid obesity, s/p cardiac arrest 12/08/2019 status post CPR per ACLS, acute hypoxic brain injury Acute kidney injury improved, severe shock requiring pressors, DIC septic shock improved, history of C. difficile colitis on vancomycin. Tracheostomy on T-piece, continues to require 5 L of oxygen. Brief history; 30 year old -[place] female CHE 10/25/20 at 36w5d who presents with seizures in triage on 10/02/20. Pt was not able to provide history but per pt's , she presented to the hospital to return a 24 hour urine specimen for analysis. She then suddenly reported that she did not feel good. She was taken to labor and delivery and shortly after arrival, she began seizing. During this time, a code met was called because the patient became hypoxic. She was then noted to be without a pulse. Chest compressions were started immediately, and the patient was emergently taken to the operating room for delivery of the fetus. Off note, This patient has had care at [facility] with comanagement by [facility] since 11 wks complicated by ADHD, morbid obesity, generalized anxiety disorder, panic attacks, chronic narcotic use, fibromyalgia, GERD, Irritable Bowel Syndrome, Migraines, h/o endometrial ablation and ovarian vein embolization, genital herpes, insomnia, LGA fetus, nausea and vomiting, polyhydramnios, quad screen positive for Down's Syndrome, and previous x 3. She is GBS negative. , Patient tracheostomy on ventilatory support, unable to wean, continue supportive care poor prognosis 11:30: Pt brought to L&D triage for evaluation of possible labor. Pt accompanied by her spouse. Pt spouse poor historian; unable to obtain history- allergies at this time. Pt taken from registration to triage area via WC. Pt unresponsive, a ctively seizing with snorous respirations. collection analyst, Kassy, called and requesting assistance. 11:35: Multiple staff at bedside. Pt 02 sat 67% on nonrebreather, unable to read BP . Yifan Theodore CRNA, at bedside for intubation and assistance with IV insertion. INT attempt by multiple RNs unsuccessful at this time. 11:42: Pt being bagged by KORIN, 02% 79%. No pulse palpated, compressions on at this time; bharati young called and Dr. Newberry preparing OR for emergent c/s. 11:44: Continued compressions on stretcher while transporting pt to OR 1. Pt being bagged with jaw thrust manuever in place by KORIN Stringer student. 11:45: Arrival to OR 1. Dr. Newberry and Dr. Portillo present for emergent c/s. Code team arrived for continued care. patient revived and c/s done Patient has been bleeding from C/s site followed by supracervical hysterectomy for severe bleeding, Patient transfused multiple units of PRBC, Patient in DIC. Patient transferred to the ICU Hospital course; 10/03. Patient seen and examined at bedside this morning. Patient is nonresponsive and mechanically ventilated. On pressors. Labs reviewed-has leukocytosis, anemia, thrombocytopenia, ADOLPH and lactic acidosis. Started on IV antibiotics to cover possible sepsis secondary to DIC. Hematology oncology recommendations appreciated-needs additional cryoprecipitate and FFP. Monitor D-dimer, fibrinogen and frequent labs. Nephrology consulted for lactic acidosis and ADOLPH. 10/04. Remains mechanically ventilated. [place] antibiotics. Labs shows improved acidosis - lactic acid 3.5. Hb drop noted. Getting transfused 2 units PRBCs. Platelet count is ~40k. Continue to monitor labs closely. Critical care team on board. 10/05; xray reviewed, concerning for multifocal infilrate, likely underlying Pneumonia, will add ID consult to assist with management of this critically ill patient, start tube feed, closely monitor renal system 10/06: Resumed care, remains on mechanical ventilation. No active bleeding, H&H stable. Continue to monitor CBC and BMP. Continue IV antibiotic for underlying pneumonia. Follow critical care and ID recommendation. 10/07: Remains on mechanical ventilation. No active bleeding, H&H stable. Cri tical care following, wean off ventilation as tolerated. 10/08: Patient had another cardiac arrest last night. Remains on mechanical ventilation, update family. Continue supportive care -poor prognosis 10/09: Called patient mother and discussed about patient care and management. Answered all question to best of my knowledge and family satisfaction. Patient remains on mechanical ventilation, cardiac arrest x2 so far. Critically sick, poor prognosis 10/10: remains on mechanical ventilation. h/h stable, no active bleeding. monitor CBC/BMP 10/11: WBC trended up with diarrhea, started on vancomycin po. remains on MV, off pressor, tolerating TF 10/12: remains on MV, off pressor, tolerating TF. called family for update but unable to reach, could not leave message as it was full. cont supportive care, wean off vent as tolerated. 10/13/2020; patient is on mechanical ventilation, tolerating tube feeding. Patient has labored breathing. Neuro was consulted and recommend MRI. Patient is on Precedex. Rectal tube in place. 10/14/2020; patient is on mechanical ventilation, Precedex. Patient had fever and blood culture ordered. Patient is on IV vancomycin per ID recommendation. Neuro consulted and recommend MRI. Continue to monitor. Prognosis is guarded. 10/15/2020; patient is on mechanical ventilation, Precedex. Patient had fever and blood culture ordered. Patient is on IV vancomycin per ID recommendation. Neuro consulted and recommend MRI. Continue to monitor. Prognosis is guarded. 12: Remains with C.DIFF and Bactermia, Poor prognosis. No purposeful movement. MRI and EEG discussed with Intensvisit, Continue aggressive BP control. 3: Blood pressure better controlled MRI done 10/15 shows mild improvement in edema. We will continue to monitor mother was at bedside yesterday. Nursing documentation trach and PEG discussed with the mother including goals of care. She is still in denial about the gravity of her daughters her condition which is understandable considering her age. Continue aggressive management at this time. Await for bacteremia to clear by ID before placing PICC line. 10/19: Patient for possible PEG and Trach, ID following, repeat cultures remain negative. Poor prognosis 10/20: Pt noted to DVT and SVT in the RUE, Vascular consult and will also obtain Hematology for possible considering changing in Anticoagulation. CONTINUE TO M ONITOR H/H and PLT. Family updated by Intens[employer]it. Heparin gtt started. Will check CBC and BMP 10/21: Continue supporive care, Diarrhea now resolving, But still with persistent Fever, May need repeat CT/AP per ID, still with profused Encephalopathy 10/22: Continue supportive care, weaning, awaiting repeat Imaging. FOLLOW Fever curve. Enoxparin restarted 10/23: Continue supportive care, wean as tolerated. 10/24; Started on CPAP trial, discussed with pulmonary, still with diarrhea. 10/25: Patients seen and examined, no clinical changes, still with diarrhea. ?meaningful recovery. 10/26: Clinically unchanged, continue CPAP trial, Will discuss with Neurology about re-evaluation, ?Need for repeat CT head. ?PRESS considering initial elevated BP, now stable. 10/27; tracheostomy on vent, weaning trials, vital signs noted, poor prognosis 10/28; unable to wean, tracheostomy on vent. Sepsis. Continue current management. Consults and recommendations noted and appreciated 10/30/2020;Patient on T-piece 5 L of oxygen not in acute distress, noncommunicative 11/02/2020; patient on T-piece 5 L of oxygen 11/03/2020; patient's fever slightly improved low-grade, continue current management, remains on T-piece with 5 L of oxygen 11/04/2020; T-max last 24 hours 100.3 F, new cultures negative to date, monitor off antibiotics Patient is off Levophed, blood pressures reasonable level, tracheostomy on T- piece 3 to 5 L nasal cannula oxygen 11/05/2020; tracheostomy on T-piece patient remains on 5 L of nasal cannula oxygen, unresponsive severe hypoxic brain injury I called patient's mother Ms. Pamela Bassett as well as patient's spouse Mr. Danilo Dimas at [phone] unable to reach them Left voicemail on Ms. Pamela Bassettz phone and encouraged him to call back 11/06/2020; I tried to call again today Ms. Pamela Bassett to discuss patient's condition and treatment plan and update consultants recommendations and patient's prognosis., unable to reach her 11/07/20 Will try LTAC/Hospice 11/08/20 Same condition 11/09/2020 Same condition 11/10/2020; family conference was held by case management yesterday 11/09/2020, family decided and agreed for SNF placement 11/11/2020; patient seen and examined, clinically no change tracheostomy on 5 L of nasal cannula oxygen, hemodynamically and clinically stable for discharge To LTAC versus SNF, DC planning per case management 11/12/2020; clinically no change, continue current management, DC planning per case management possible SNF placement 11/13/2020; patient is receiving herpes flareup treatment per ID 11/14/2020; clinically no change, awaiting SNF placement 11/15/2020; clinically no change, tracheostomy on T-piece on 5 L oxygen, awaiting placement 11/16/2020; patient awaiting placement 11/18/2020; abdominal CT scan negative for insulinoma or pancreatic tumor ,clinically no change Awaiting SNF placement 11/19/2020; remains on 4 L of oxygen tracheostomy via T-piece, awaiting SNF placement 11/20/2020 Awaiting SNF placement 11/21/2020 Waiting for SNF placement 11/22/2020 Waiting for placement 11/23/2020 Waiting for placement 11/24/2020 through 12/24/2020 Patient waiting for placement 11/27/2020; patient remains hypoglycemic on D10 W IV fluids, CT abdomen negative for insulinoma Remains stable awaiting SNF placement, tracheostomy on 5 L oxygen via T-piece 11/28/2020; awaiting SNF placement 11/29/2020; patient remains unresponsive, tracheostomy on T-piece, on 4 to 5 L of oxygen Wean as tolerated, DC planning per case management possible SNF placement 11/30/2020; awaiting SNF placement 12/02/2020; awaiting placement, stable for discharge 12/03/2020; clinically no change, awaiting placement, tracheostomy on T-piece, anoxic brain injury 12/04/2020 Patient has anoxic encephalopathy with anoxic brain brain injury Awaiting placement 12/05/2020; anoxic brain injury, awaiting placement. 12/06/20; anoxic brain injury. Awaiting placement. 12/07/2020; anoxic brain injury, awaiting placement. 12/09/2020; anoxic brain injury, awaiting placement. 12/10/2020; patient had episodes of fever overnight. CBC, BMP, blood culture, UA and chest x-ray ordered, will follow and manage accordingly. Urinalysis is suggestive of UTI and I put the patient on ceftriaxone, order urine culture. Chest x-ray is normal. 12/11/2020; patient is on ceftriaxone day 2 for UTI. We will continue to follow urine culture. 12/12/2020. Day #3 of Rocephin for UTI. We will continue for 2 more days while she is here. Present UTI. 12/13/2020. Day #4 of Rocephin for UTI. Patient remains on 50% with tracheostomy. Remains unresponsive with evidence of anoxic encephalopathy unable to make needs known. 12/14/2020. Day #5 of Rocephin for UTI completed today. Remains encephalopathic unable to make needs known. Remains on 50% unable to decrease oxygen via tracheostomy. Overall prognosis remains extremely poor. 12/15: Continue to monitor. Stop and monitor antibiotics at this time. Continue to wean oxygen as tolerated. Wean oxygen as tolerated. Case management working on placement. 12/16: Continue supportive care aspiration precautions. Awaiting placement discussion. Monitor fever curve. Prognosis remains poor no evidence of neurological recovery as of today 12/17: Continue supportive care, check labs and chest xray. Still monitor off antibiotics. Monitor Sodium level 12/18: Patient remains with intermittent low grade fever, reviewed EEG from September again, consistent for Ischemic Hypoxic Encephalopathy, patient with decorticating posturing type presentation. Will discuss with solar resource assessor to optimize diet so we can discontinue D5. CXR with no abnormality. Discussed extensively with the nursing staff at bedside CXR IMPRESSION: 1. No acute findings. 12/19: No clinical change 12/20: No clinical change, now off abx, monitor, discussed her medications with our pharmacist I believe that her posture and rigidity is likely from underlying anoxic encephalopathy. Continue to monitor and await placement decision. Continue aggressive suctioning. Plan discussed in detail with the nursing staff 12/21: Continue supportive care. Will give 500 cc bolus of fluid today to replace insensible losses. Tachycardia appears to be improving. Blood pressure precludes adjusting cardiac meds. Still awaiting placement from case management. Plan discussed in detail with the nursing staff 12/22. Continue support supportive care. Tracheostomy and PEG in place. Remains nonresponsive. Awaiting placement. 12/23. Continue support supportive care. Tracheostomy and PEG in place. Remains nonresponsive. Awaiting placement. Remains tachycardic. Decrease dose of lasix. Will try low dose metoprolol. Monitor BP closely 12/24. Continue support supportive care. Tracheostomy and PEG in place. Remains nonresponsive. Awaiting placement. Heart rate slightly better. Continue to monitor BP closely 12/25. Continue support supportive care. Tracheostomy and PEG in place. Remains nonresponsive. Awaiting placement. 12/26. Continue support supportive care. Tracheostomy and PEG in place. Remains nonresponsive. Awaiting placement 12/27. Continue support supportive care. Tracheostomy and PEG in place. Remains nonresponsive. Awaiting placement 12/28. Had fever yesterday. Blood culture drawn. UA - UTI - started on antibiotics. Now tracheal aspirate is growing GN rods. 12/29: Continue IV antibiotics, continue supportive care. Since admission patient has shown minimal or no chance of neurological recovery. Need 24/7 assistance. Currently on trach and PEG, nonverbal. Waiting on SNF placement. Discussed with family independence case manager today. 12/30: Continue IV antibiotics for UTI, continue supportive care. Pending placement 12/31: continue supportive care. continue supportive care. Pending placement 01/01: continue supportive care. Pending placement. cont Iv abx for UTI till 01/04 01/02: Continue supportive care, pending placement. Sodium level slightly elevated, will start hypotonic fluid. Continue antibiotics till 01/04 01/03; cont hypotonic fluid, increase free water with TF for hypernatremia, follow BMP. cont supportive care. pending placement. cont cefepime. recx blood 01/04: resolved hyponatremia, cont supportive care, pending placement. Last day of supplement today. 01/05: Continue supportive care, pending placement. Monitor H&H and fever curve off antibiotic. 01/06; monitor off abx, suction as needed, Continue supportive care, pending placement. 01/07: Discharge pending on placement, vitals stable. Continue supportive care 01/08: Discharge pending on placement, vitals stable. Continue supportive care. stop lasix, increase metoprolol to 25mg BID for ST. 01/09 patient resting with eyes closed. Opens eyes to tactile stimulus, has a blink reflex, does not follow simple commands, has a T-collar / G-tube Lab results reviewed, low-grade fever, 01/10 Eyes open, does not follow simple commands, no acute events overnight 01/11 no acute events overnight, Waiting for placement 01/12 No acute events overnight. Patient awaiting for placement 01/13. No new issues. Awaiting placement 01/14. No new issues. Awaiting placement. 01/15. No new issues. Awaiting placement. 01/16. No new issues. Patient remain stable. Awaiting placement. Check maintenance labs. 01/17. Routine maintenance labs were ordered and are still pending. Await placement. 01/18. Patient with low-grade fever past 24-48 hrs. WBC within normal limits. Check chest x-ray, urinalysis and consider blood cultures. Continue tracheostomy care, secretion control and airway management. Patient currently with PEG and tube feedings at 60 cc an hour. Nutritional support and aspiration precautions. 01/19. Temperature 100.7 overnight. Continue to monitor closely. Continue tracheostomy care, secretion control and airway management. Patient currently with PEG and tube feedings at 60 cc an hour. Nutritional support and aspiration precautions. 01/20. Continue to monitor closely. Continue tracheostomy care, secretion control and airway management. Patient currently with PEG and tube feedings at 60 cc an hour. Nutritional support and aspiration precautions. 01/21. Afebrile overnight. Continue to monitor closely. Continue tracheostomy care, secretion control and airway management. Patient currently with PEG and tube feedings at 60 cc an hour. Nutritional support and aspiration precautions. 01/22. Continue to monitor closely. Continue tracheostomy care, secretion control and airway management. Patient currently with PEG and tube feedings at 60 cc an hour. Nutritional support and aspiration precautions. 01/23. Continue tracheostomy care, secretion control and airway management. Patient currently with PEG and tube feedings at 60 cc an hour. Nutritional support and aspiration precautions. Will get routine labs tomorrow. 01/24. Labs reviewed. No abnormalities. Continue tracheostomy care, secretion control and airway management. Patient currently with PEG and tube feedings at 60 cc an hour. Nutritional support and aspiration precautions. 01/25. Temp 100.6. More sleepy today. Will get chest xray, blood culture, urinalysis, sputum cultures. Will start on empirical abx. 01/26: Vitals noted, slightly tachycardic. Follow culture work-up, continue supportive care. 01/27: Spiking low-grade temp, negative UA, sputum culture and recent blood cultures also negative. Continue to monitor off antibiotics. Continue supportive care. Pending placement. 01/28: cont to spike low grade temp, negative UA, sputum culture and recent blood cultures also negative. Continue to monitor off antibiotics. will order fpr sinus xry. Continue supportive care. Pending placement. 01/29: Continue to follow clinically, intermittently spiking low-grade temp, all recent culture work is negative, negative UA, normal respiratory jaylan 1 tracheal aspirate. Vitals noted and currently stable. Pending placement 01/30: Clinically unchanged, continue to monitor vitals, continue supportive cares. Pending placement. Discussed plan of care with RN at the bedside. 01/31 - TODATE: cont supportive care, pending placement. monitor vitals carefully. Discussed with family at the bedside. 02/06. Patient afebrile today. Continue trach care. Secretions stable today. Culture data negative so far. Awaiting placement. 02/07. Awaiting placement awaiting family member to evaluate papers. Continue trach care secretions stable. Pending placement 02/09: Intermittent fever, ?drug related, will check cxr and also labs. No new complaints. 02/10: Patient's trach dislodged today. Nevertheless respiratory status is intact attempt to reinsert was unsuccessful will monitor discussed with nursing staff to pay close attention to the patient. Considering that this was not a planned decannulation I will start the patient on continuous pulse ox until full evaluation was done by pulmonary. 02/13/2021 Vital signs stable Unresponsive secondary to anoxic encephalopathy Awaiting placement 02/14/2021 Awaiting placement 02/15/2021 Anoxic encephalopathy Awaiting placement 02/16/2021 Anoxic encephalopathy Awaiting placement 02/17/2021 Anoxic encephalopathy awaiting placement 02/18/2021 Anoxic encephalopathy awaiting placement 02/19/2021 Anoxic encephalopathy awaiting placement 02/20/2021 Anoxic encephalopathy awaiting placement 02/21/2021 Anoxic encephalopathy awaiting placement 02/22/2021 Anoxic encephalopathy awaiting placement 02/23/2021 Anoxic encephalopathy awaiting placement 02/24/2021 Anoxic encephalopathy awaiting placement 02/25/2021 Anoxic encephalopathy waiting for placement 02/26 Awaiting placement 02/27. Awaiting placement 02/28. No change in medical condition. Awaiting placement 03/01. No medical changes noted. Awaiting placement 03/02. Temp more than 100. Labs ordered. Chest x-ray ordered as well. Continue to monitor. Still awaiting placement Hospitalist Physical - Physical exam Narrative exam: VITAL SIGNS: Reviewed. GENERAL: Trach in place HEAD: No signs of head trauma. EYES: Pupils are equal. NECK: No adenopathy, no JVD. CHEST: Diminished breath sounds CARDIAC: normal S1 and S2, without murmurs, gallops, or rubs. ABDOMEN: Soft, non tender and non distended. No rebound or guarding, and no masses palpated. Bowel Sounds normal MUSCULOSKELETAL: No edema NEUROLOGIC EXAM: Not responsive SKIN: No obvious lesions - Constitutional Vitals: Temp Pulse Resp BP Pulse Ox 98.5 F 112 H 16 114/83 96 03/02/21 04:33 03/02/21 10:00 03/02/21 04:33 03/02/21 10:00 03/02/21 04:33 HEART Score - HEART Score Age: < 45 Risk factors: 1-2 risk factors - Critical Actions Critical Actions: >7 pts:50-65% risk of adverse cardiac event. Early invasive measures Results - Labs CBC & Chem 7: 03/03/21 06:00 03/03/21 06:00 Labs: Laboratory Last Values WBC 8.0 K/mm3 (4.5-11.0) 03/02/21 02:30 RBC 5.65 M/mm3 (3.65-5.03) H 03/02/21 02:30 Hgb 13.6 gm/dl (10.1-14.3) 03/02/21 02:30 Hgb Comment See scanned result 10/04/20 Unknown Hct 43.1 % (30.3-42.9) H 03/02/21 02:30 MCV 76 fl (79-97) L 03/02/21 02:30 MCH 24 pg (28-32) L 03/02/21 02:30 MCHC 32 % (30-34) 03/02/21 02:30 RDW 15.3 % (13.2-15.2) H 03/02/21 02:30 Plt Count 268 K/mm3 (140-440) 03/02/21 02:30 Lymph % (Auto) 33.1 % (13.4-35.0) 03/02/21 02:30 [place] % (Auto) 7.5 % (0.0-7.3) H 03/02/21 02:30 Eos % (Auto) 1.4 % (0.0-4.3) 03/02/21 02:30 Baso % (Auto) 0.4 % (0.0-1.8) 03/02/21 02:30 Lymph # (Auto) 2.6 K/mm3 (1.2-5.4) 03/02/21 02:30 [place] # (Auto) 0.6 K/mm3 (0.0-0.8) 03/02/21 02:30 Eos # (Auto) 0.1 K/mm3 (0.0-0.4) 03/02/21 02:30 Baso # (Auto) 0.0 K/mm3 (0.0-0.1) 03/02/21 02:30 Add Manual Diff Complete 02/09/21 10:59 Total Counted 100 02/09/21 10:59 Seg Neutrophils % 57.6 % (40.0-70.0) 03/02/21 02:30 Seg Neuts % (Manual) 58.0 % (40.0-70.0) 02/09/21 10:59 Band Neutrophils % 2.0 % 10/15/20 05:50 Lymphocytes % (Manual) 29.0 % (13.4-35.0) 02/09/21 10:59 Reactive Lymphs % (Man) 1.0 % 10/02/20 12:18 Monocytes % (Manual) 13.0 % (0.0-7.3) H 02/09/21 10:59 Eosinophils % (Manual) 1.0 % (0.0-4.3) 10/29/20 07:56 Myelocytes % 2.0 % 10/02/20 13:05 Metamyelocytes % 1.0 % 10/14/20 04:00 Nucleated RBC % Not Reportable 02/09/21 10:59 Seg Neutrophils # 4.6 K/mm3 (1.8-7.7) 03/02/21 02:30 Seg Neutrophils # Man 3.7 K/mm3 (1.8-7.7) 02/09/21 10:59 Band Neutrophils # 0.0 K/mm3 02/09/21 10:59 Lymphocytes # (Manual) 1.8 K/mm3 (1.2-5.4) 02/09/21 10:59 Abs React Lymphs (Man) 0.0 K/mm3 02/09/21 10:59 Monocytes # (Manual) 0.8 K/mm3 (0.0-0.8) 02/09/21 10:59 Eosinophils # (Manual) 0.0 K/mm3 (0.0-0.4) 02/09/21 10:59 Basophils # (Manual) 0.0 K/mm3 (0.0-0.1) 02/09/21 10:59 Metamyelocytes # 0.0 K/mm3 02/09/21 10:59 Myelocytes # 0.0 K/mm3 02/09/21 10:59 Promyelocytes # 0.0 K/mm3 02/09/21 10:59 Blast Cells # 0.0 K/mm3 02/09/21 10:59 WBC Morphology Not Reportable 02/09/21 10:59 Hypersegmented Neuts Not Reportable 02/09/21 10:59 Hyposegmented Neuts Not Reportable 02/09/21 10:59 Hypogranular Neuts Not Reportable 02/09/21 10:59 Smudge Cells Not Reportable 02/09/21 10:59 Toxic Granulation Not Reportable 02/09/21 10:59 Toxic Vacuolation Not Reportable 02/09/21 10:59 Dohle Bodies Not Reportable 02/09/21 10:59 Pelger-Huet Anomaly Not Reportable 02/09/21 10:59 Ester Rods Not Reportable 02/09/21 10:59 Platelet Estimate Consistent w auto 02/09/21 10:59 Clumped Platelets Not Reportable 02/09/21 10:59 Plt Clumps, EDTA Not Reportable 02/09/21 10:59 Large Platelets Few 02/09/21 10:59 Giant Platelets Not Reportable 02/09/21 10:59 Platelet Satelliting Not Reportable 02/09/21 10:59 Plt Morphology Comment Not Reportable 02/09/21 10:59 RBC Morphology Not Reportable 02/09/21 10:59 Dimorphic RBCs Not Reportable 02/09/21 10:59 Polychromasia Not Reportable 02/09/21 10:59 Hypochromasia 1+ 02/09/21 10:59 Poikilocytosis Not Reportable 02/09/21 10:59 Anisocytosis Not Reportable 02/09/21 10:59 Microcytosis Not Reportable 02/09/21 10:59 Macrocytosis Not Reportable 02/09/21 10:59 Spherocytes Not Reportable 02/09/21 10:59 Pappenheimer Bodies Not Reportable 02/09/21 10:59 Sickle Cells Not Reportable 02/09/21 10:59 Target Cells Not Reportable 02/09/21 10:59 Tear Drop Cells Not Reportable 02/09/21 10:59 Ovalocytes Not Reportable 02/09/21 10:59 Stomatocytes Few 10/14/20 04:00 Helmet Cells Not Reportable 02/09/21 10:59 [place] Bodies Not Reportable 02/09/21 10:59 [place] Rings Not Reportable 02/09/21 10:59 [place] Cells Not Reportable 02/09/21 10:59 Bite Cells Not Reportable 02/09/21 10:59 Crenated Cell Not Reportable 02/09/21 10:59 Elliptocytes Not Reportable 02/09/21 10:59 Acanthocytes (Spur) Not Reportable 02/09/21 10:59 Rouleaux Not Reportable 02/09/21 10:59 Hemoglobin C Crystals Not Reportable 02/09/21 10:59 Schistocytes Not Reportable 02/09/21 10:59 Malaria parasites Not Reportable 02/09/21 10:59 Sickle Cell Solubility See scanned result 10/04/20 Unknown Hemoglobin A See scanned result 10/04/20 Unknown Hemoglobin A2 See scanned result 10/04/20 Unknown Hemoglobin A2 Prime See scanned result 10/04/20 Unknown Hemoglobin C See scanned result 10/04/20 Unknown Hemoglobin D See scanned result 10/04/20 Unknown Hemoglobin E See scanned result 10/04/20 Unknown Hgb F Diffential Stain See scanned result 10/04/20 Unknown Hemoglobin F Quant See scanned result 10/04/20 Unknown Hemoglobin G See scanned result 10/04/20 Unknown Hemoglobin S See scanned result 10/04/20 Unknown Hemoglobin [place] See scanned result 10/04/20 Unknown Hemoglobin [place] See scanned result 10/04/20 Unknown Hemoglobin Analilia See scanned result 10/04/20 Unknown Variant Hemoglobin See scanned result 10/04/20 Unknown Abnorm Hgb IEF Confirm See scanned result 10/04/20 Unknown Hemoglobin Interpret See scanned result 10/04/20 Unknown Hemoglobinopathy Note See scanned result 10/04/20 Unknown Sharad Bodies Not Reportable 02/09/21 10:59 Hem Pathologist Commnt No 02/09/21 10:59 PT 13.6 Sec. (12.2-14.9) 10/21/20 13:54 INR 1.06 (0.87-1.13) 10/21/20 13:54 APTT 31.6 Sec. (24.2-36.6) 10/03/20 00:40 Fibrinogen 336 mg/dl (211-480) 10/04/20 10:00 D-Dimer 1974.47 ng/mlDDU (0-234) H 11/11/20 13:50 ABG pH 7.459 pH Units (7.350-7.450) H 10/26/20 10:30 POC ABG pCO2 20.7 mmHg (32.0-48.0) L 10/13/20 07:18 ABG pCO2 32.4 mm Hg 10/26/20 10:30 POC ABG pO2 137.9 mmHg (83-108) H 10/13/20 07:18 ABG pO2 112.2 mm Hg (80.0-90.0) H 10/26/20 10:30 POC ABG HCO3 14.8 10/13/20 07:18 ABG HCO3 22.5 mmol/L (20.0-26.0) 10/26/20 10:30 ABG O2 Saturation 98.2 % (95.0-99.0) 10/26/20 10:30 ABG O2 Content 18.5 (0.0-44) 10/26/20 10:30 POC ABG Base Excess -6.9 10/13/20 07:18 ABG Base Excess -0.6 mmol/L (-2.0-3.0) 10/26/20 10:30 ABG Hemoglobin 13.5 gm/dl (12.0-16.0) 10/26/20 10:30 ABG Oxyhemoglobin 98.3 (94-98) H 10/13/20 07:18 ABG Carboxyhemoglobin 1.3 % (0.0-5.0) 10/26/20 10:30 ABG Methemoglobin 0.5 % (0.0-1.5) 10/26/20 10:30 ABG Sodium 135.9 mmol/L (136.0-145.0) L 10/13/20 07:18 ABG Potassium 3.7 mmol/L (3.40-4.50) 10/13/20 07:18 ABG Chloride 111.0 mmol/L (98-107) H 10/13/20 07:18 ABG Glucose 109 mg/dL (65-95) H 10/13/20 07:18 VBG pH 6.949 (7.320-7.420) L* 10/02/20 Unknown Oxyhemoglobin 96.5 % (95.0-99.0) 10/26/20 10:30 Carboxyhemoglobin 0.3 (0.5-1.5) L 10/13/20 07:18 FiO2 25 % 10/26/20 10:30 Sodium 142 mmol/L (137-145) 03/02/21 02:30 Potassium 4.6 mmol/L (3.6-5.0) 03/02/21 02:30 Chloride 102.7 mmol/L (98-107) 03/02/21 02:30 Carbon Dioxide 26 mmol/L (22-30) 03/02/21 02:30 Anion Gap 18 mmol/L 03/02/21 02:30 BUN 15 mg/dL (7-17) 03/02/21 02:30 Creatinine 0.5 mg/dL (0.6-1.2) L 03/02/21 02:30 Estimated GFR > 60 ml/min 03/02/21 02:30 BUN/Creatinine Ratio 30 % 03/02/21 02:30 Glucose 94 mg/dL (65-100) 03/02/21 02:30 POC Glucose 106 mg/dL (70-105) H 03/02/21 06:22 Random Insulin 43.2 uIU/mL (<=19.6) H 11/02/20 19:19 Proinsulin See scanned result 11/02/20 19:19 C-Peptide 6.23 ng/mL (0.80-3.85) H 11/02/20 19:19 Lactic Acid 1.90 mmol/L (0.7-2.0) 10/04/20 22:00 Uric Acid 7.5 mg/dL (3.5-7.6) 10/02/20 13:05 Calcium 9.9 mg/dL (8.4-10.2) 03/02/21 02:30 Ionized Calcium 4.4 mg/dL (4.8-5.6) L 10/07/20 21:00 Phosphorus 4.60 mg/dL (2.5-4.5) H 11/13/20 10:05 Magnesium 2.10 mg/dL (1.7-2.3) 11/13/20 10:05 Total Bilirubin 0.70 mg/dL (0.1-1.2) 03/02/21 02:30 AST 56 units/L (5-40) H 03/02/21 02:30 ALT 56 units/L (7-56) 03/02/21 02:30 Alkaline Phosphatase 121 units/L (35-129) 03/02/21 02:30 Lactate Dehydrogenase 769 units/L (91-180) H 10/02/20 13:05 C-Reactive Protein 0.70 mg/dL (0.00-1.30) 11/11/20 13:50 NT-Pro-B Natriuret Pep 2788 pg/mL (0-450) H 10/04/20 10:00 Total Protein 8.0 g/dL (6.3-8.2) 03/02/21 02:30 Albumin 4.4 g/dL (3.9-5) 03/02/21 02:30 Albumin/Globulin Ratio 1.2 % 03/02/21 02:30 Procalcitonin < 0.05 ng/mL (<0.15) 03/02/21 02:30 Arterial Blood Glucose 109 mg/dL (65-95) H 10/13/20 07:18 Arterial Blood Ionized Calcium 4.6 mg/dL (4.6-5.3) 10/13/20 07:18 Urine Color Yellow (Yellow) 01/25/21 09:51 Urine Turbidity Cloudy (Clear) 01/25/21 09:51 Urine pH 7.0 (5.0-7.0) 01/25/21 09:51 Ur Specific [place] 1.011 (1.003-1.030) 01/25/21 09:51 Urine Protein <15 mg/dl mg/dL (Negative) 01/25/21 09:51 Urine Glucose (UA) Neg mg/dL (Negative) 01/25/21 09:51 Urine Ketones Neg mg/dL (Negative) 01/25/21 09:51 Urine Blood Neg (Negative) 01/25/21 09:51 Urine Nitrite Neg (Negative) 01/25/21 09:51 Urine Bilirubin Neg (Negative) 01/25/21 09:51 Urine Urobilinogen < 2.0 mg/dL (<2.0) 01/25/21 09:51 Ur Leukocyte Esterase Neg (Negative) 01/25/21 09:51 Urine WBC (Auto) 6.0 /HPF (0.0-6.0) 01/25/21 09:51 Urine RBC (Auto) 3.0 /HPF (0.0-6.0) 01/25/21 09:51 U Epithel Cells (Auto) < 1.0 /HPF (0-13.0) 01/25/21 09:51 Urine Bacteria (Auto) 1+ /HPF (Negative) 01/18/21 08:47 Urine WBC Clumps 3+ /HPF 11/11/20 13:50 Calcium Oxalate Crystal Few 11/11/20 13:50 Urine Mucus Few /HPF 01/25/21 09:51 Urine Yeast (Budding) 2+ /HPF 01/25/21 09:51 Vancomycin Trough 12.6 ug/mL (5.0-20.0) 10/21/20 13:54 Random Vancomycin 10.7 ug/mL (0-40.0) 10/16/20 13:09 Phenytoin 5.7 ug/mL (10.0-20.0) L 10/13/20 07:00 C. difficile Tox (PCR) Positive (Negative) 10/16/20 10:22 Coronavirus (PCR) Negative (Negative) 10/08/20 14:15 Blood Type O POSITIVE 10/02/20 12:50 Antibody Screen Negative 10/02/20 12:50 Crossmatch See Detail 10/02/20 12:50 Microbiology: Microbiology 03/02/21 04:40 Peripheral/Venous Blood Culture - Preliminary Culture in Progress 03/01/21 23:43 Peripheral/Venous Blood Culture - Preliminary Culture in Progress - Diagnostic Impressions Diagnostic Impressions: Echocardiogram 10/03/20 13:42 Transthoracic Echocardiogram Indication: S/P Cardiac Arrest R/O Cardiomyopathy BP: 133/71 Conclusions *Global left ventricular systolic function is normal. *The estimated ejection fraction is 60-65%. *There is trace of mitral regurgitation. *The right 0heart chambers are both slightly dilated. *There is mild tricuspid regurgitation. *There is mild-moderate pulmonary hypertension. *The right ventricular systolic pressure is calculated at 44 mmHg. *The study quality is technically difficult. Findings Procedure Info: The study quality is technically difficult. The study is technically limited due to patient body habitus. The study was technically limited due to the patient's inability to lay in the left lateral decubitus position. Left Ventricle: The left ventricular chamber size is normal. There is no left ventricular hypertrophy. Global left ventricular systolic function is normal. The estimated ejection fraction is 60-65%. Left Atrium: The left atrial chamber size is normal. Right Ventricle: The right ventricle is slightly dilated. Right Atrium: The right atrium is mildly dilated. Aortic Valve: The aortic valve leaflets are mildly thickened. There is no evidence of aortic regurgitation. There is no evidence of aortic stenosis. Mitral Valve: The mitral valve leaflets are mildly thickened. There is trace of mitral regurgitation. There is no evidence of mitral stenosis. Tricuspid Valve: There is mild tricuspid regurgitation. The right ventricular systolic pressure is calculated at 44 mmHg. There is evidence of mild pulmonary hypertension. Pulmonic Valve: There is trace pulmonic regurgitation. Pericardium: There is no pericardial effusion. Aorta: There is no dilatation of the ascending aorta. There is no dilatation of the aortic root. Venous: The inferior vena cava is dilated. Measurements Chambers 2D Name Value Normal Range IVSd (2D) 1 cm (0.6 - 1.1) LVPWd (2D) 1.01 cm (0.6 - 1.1) LVIDd (2D) 4.58 cm (3.7 - 5.6) LVIDs (2D) 3.17 cm (2 - 3.8) LV FS (2D) 30.93 % - EF Teichholz (2D) 58.66 % - Ao root diameter (2D) 2.94 cm (2 - 3.7) Volumes/Mass Name Value Normal Range LA ESV SP 4CH (A/L) 72.82 ml - LA ESV SP 2CH (A/L) 66.86 ml - LA ESV BP (A/L) 74.49 ml - LA ESV SP 4CH (MOD) 71.03 ml - LA ESV SP 2CH (MOD) 64.3 ml - LV EDV SP 4CH (MOD) 98.82 ml - LV ESV SP 4CH (MOD) 24.8 ml - EF SP 4CH (MOD) 74.9 % - LV EDV SP 2CH (MOD) 86.1 ml - LV ESV SP 2CH (MOD) 36.93 ml - EF SP 2CH (MOD) 57.11 % - LV EDV BP 94.4 ml - LV ESV BP 32.66 ml - BP EF (MOD) 65.4 % - Diastolic/Systolic Function Name Value Normal Range MV E-wave Vmax 1.04 m/sec - MV deceleration time 160.46 msec - MV A-wave Vmax 0.92 m/sec - MV E:A ratio 1.14 ratio - Aortic Valve Name Value Normal Range AV Vmax 2.12 m/sec - AV VTI 22.37 cm - AV peak gradient 17.95 mmHg - AV mean gradient 7.29 mmHg - LVOT diameter 2.01 cm - LVOT Vmax 1.8 m/sec - LVOT VTI 27.17 cm - LVOT peak gradient 12.91 mmHg - LVOT mean gradient 6.83 mmHg - SV LVOT 86.42 ml - ANITA (continuity Vmax) 2.7 cm2 - ANITA (continuity VTI) 3.86 cm2 - Ascending Ao 3.18 cm - Tricuspid Valve Name Value Normal Range TV E-wave Vmax 0.88 m/sec - TR Vmax 3.01 m/sec - TR peak gradient 36.27 mmHg - RAP 8 mmHg - RVSP 44 mmHg - IVC diameter 2.65 cm (1.2 - 2.3) Pulmonic Valve/Qp:Qs Name Value Normal Range PV Vmax 1.22 m/sec - PV peak gradient 5.91 mmHg - RVOT Vmax 0.87 m/sec - RVOT VTI 13.32 cm - RVOT peak gradient 3 mmHg - PV acceleration time 110.37 msec - [place]/IV: Voiding Method Incontinent IV Catheter Type [Right Foot] INT / Saline Lock IV Catheter Type [Left Forearm Peripheral IV ] IV Catheter Type [Left Wrist] INT / Saline Lock IV Catheter Type [Right Hand] INT / Saline Lock IV Catheter Type [Right INT / Saline Lock Antecubital] IV Catheter Type [Right Upper Mid-line arm] IV Catheter Type [Left Triple Lumen Cath Internal Jugular] IV Catheter Type [Left Hand] Peripheral IV IV Catheter Type [Left Peripheral IV Antecubital] Active Medications - Current Medications Current Medications: Generic Name Dose Route Start Last Admin Trade Name Freq PRN Reason Stop Dose Admin Acetaminophen 650 mg 10/05/20 16:34 03/01/21 21:58 Acetaminophen 325 Mg/10.15 Ml Oral Liqd Unit Dose FEEDTUBE 650 mg Q6H PRN Administration Non Cardiac Pain or Temp>100.5 Albuterol 2.5 mg 11/05/20 13:03 11/06/20 13:04 Albuterol 2.5 Mg/3 Ml Nebu IH 2.5 mg Q4HRT PRN Administration Shortness Of Breath Alprazolam 0.25 mg 01/20/21 13:33 03/01/21 21:57 Alprazolam 0.25 Mg Tab PO 0.25 mg Q8H PRN Administration Anxiety Lipase/Protease/Amylase 1 each 10/05/20 11:09 Lipase 10,500/Protease 25,000/Amylase 43,750 (Units) Dr Barakat FEEDTUBE PRN PRN For Clogged Feeding Tube Enoxaparin Sodium 40 mg 10/22/20 10:00 03/02/21 10:00 Enoxaparin 40 Mg/0.4 Ml Inj SUB-Q 40 mg DAILY ERINN Administration Protocol Famotidine 20 mg 10/07/20 10:00 03/02/21 10:00 Famotidine 20 Mg Tab PO 20 mg BID ERINN Administration Hydralazine HCl 20 mg 10/07/20 11:49 10/17/20 07:20 Hydralazine 20 Mg/1 Ml Inj IV 20 mg Q6H PRN Administration SBP >170 Hydrophilic Ointment 1 applic 01/03/21 13:00 02/16/21 09:56 Lip Therapy Vaseline TP 1 applic DIRECT PRN Administration Dry Lips Dextrose 1,000 mls @ 30 mls/hr 01/03/21 12:00 02/11/21 18:44 D5w IV 30 mls/hr DIRECT ERINN Administration Metoprolol Tartrate 50 mg 02/02/21 16:01 03/02/21 10:00 Metoprolol Tartrate 25 Mg Tab PO 50 mg BID ERINN Administration Morphine Sulfate 2 mg 01/20/21 13:33 Morphine 2 Mg/1 Ml Inj IV Q4H PRN Pain, Moderate (4-6) Ondansetron HCl 4 mg 02/10/21 11:38 02/10/21 13:18 Ondansetron 4 Mg/2 Ml Inj IV 4 mg Q4H PRN Administration Nausea And Vomiting Simple Syrup 15 ml 10/05/20 11:09 Simple Syrup 15 Ml FEEDTUBE PRN PRN Hypoglycemia Simple Syrup 30 ml 10/05/20 11:09 Simple Syrup 15 Ml FEEDTUBE PRN PRN Hypoglycemia Sodium Bicarbonate 325 mg 10/05/20 11:09 12/16/20 08:19 Sodium Bicarbonate 325 Mg Tab FEEDTUBE 325 mg PRN PRN Administration For Clogged Feeding Tube Nutrition/Malnutrition Assess - Dietary Evaluation Nutrition/Malnutrition Findings: Nutrition Notes Start: 10/04/20 11:13 Freq: Status: Active Protocol: Document 02/24/21 09:40 AT (Rec: 02/24/21 09:51 AT [id number]) Co-Sign 02/24/21 09:40 LP Nutrition Notes Initial or Follow up Reassessment Current Diagnosis Respiratory Failure Other Pertinent Diagnosis s/p cardiac arrest x 2, anoxic brain injury Current Diet Promote at 65ml/hr Labs/Tests No new labs Pertinent Medications Reviewed Height 5 ft 8 in Weight 90.2 kg [place] Body Weight (kg) 63.63 BMI 30.2 Weight change and time frame 28% wt loss in 5 months (adm wt 124.738 kg) due to post- Weight Status Obese Subjective/Other Information Follow up for stable TF. Visited pt at bedside and observed Promote running at goal rate of 65 mL/hr. Per chart, pt is tolerating TF without issue. Percent of energy/protein needs met: 100%/98% Burn Absent Trauma Absent GI Symptoms None Difficulty In Swallowing,Chewing Food Allergy Yes Current % PO Negligible Minimum of two criteria Yes Interpretation of Weight Loss (severe) >2% in 1 week Fluid Accumulation Moderate to Severe (severe) #2 Nutrition Diagnosis Malnutrition Diagnosis Progress(for reassessment Continues documentation) #1 Nutrition Diagnosis Inadequate oral intake Diagnosis Progress(for reassessment Continues documentation) Is patient on ventilator? No Is Patient Ambulatory and/or Out of Bed No REE-([place]-confined to bed) 1993.592 Kcal/Kg value to use for calculation 17 Approximate Energy Requirements Using 1533 kcal/Kg Calculation Used for Recommendations Kcal/kg Additional Notes PRO needs: 96-116g (1.25-1.5 g /kg AdBW 77kg) Fluid needs: 1 mL/kcal or per MD Nutrition Intervention Change Diet Order: Continue Nutrition Support: Promote at 65 mL/hr Flush 50 mL q4h Kcal 1,560 Protein (gm) 98 Fluid (mL) 1,309 Goal #1 TF tolerance Goal #2 TF to meet at least 75% estimated energy and protein needs Anticipated Discharge Needs: Promote at 65 ml/hr Flush 50 ml q4h Follow-Up By: 03/03/21 Additional Comments F/U for stable TF, wound status
[2021-03-02] MEDS: ACETAMINOPHEN 325 MG/10.15 ML ORAL LIQD UNIT DOSE FEEDTUBE PRN (17:41)
[2021-03-02] MEDS: ALPRAZolam 0.25 MG TAB PO PRN (17:41)
[2021-03-03] MEDS: ALPRAZolam 0.25 MG TAB PO PRN ×2 (00:25→17:30)
[2021-03-03 06:36] LABS: Basophils % (Auto) 0.5 % (0.0-1.8); Eosinophils # (Auto) 0.2 K/mm3 (0.0-0.4); Eosinophils % (Auto) 2.2 % (0.0-4.3); Hematocrit 40.9 % (30.3-42.9); Hemoglobin 13.4 gm/dl (10.1-14.3); Lymphocytes # (Auto) 2.4 K/mm3 (1.2-5.4); Lymphocytes % (Auto) 29.4 % (13.4-35.0); Mean Corpuscular HGB Conc 33 % (30-34); Mean Corpuscular Volume 75 fl (79-97); Monocytes # (Auto) 0.8 K/mm3 (0.0-0.8); Monocytes % (Auto) 9.9 % (0.0-7.3); Platelet Count 276 K/mm3 (140-440); Red Blood Count 5.45 M/mm3 (3.65-5.03); Red Cell Distribution Width 14.9 % (13.2-15.2)
[2021-03-03 07:01] LABS: Alanine Aminotransferase 58 units/L (7-56); Albumin 4.3 g/dL (3.9-5); Blood Urea Nitrogen 16 mg/dL (7-17); Calcium 10.3 mg/dL (8.4-10.2); Hemolysis Index 4
[2021-03-03 07:25] LABS: BUN/Creatinine Ratio 27
[2021-03-03] MEDS: ENOXAPARIN 40 MG/0.4 ML INJ SUB-Q SCH (09:22)
[2021-03-03] MEDS: FAMOTIDINE 20 MG TAB PO SCH ×2 (09:22→22:37)
[2021-03-03] MEDS: METOPROLOL TARTRATE 25 MG TAB PO SCH ×2 (09:22→22:37)
--- NOTE | 2021-03-03 09:55 | Progress Note ---
Assessment and Plan Assessment and plan: --DIC (disseminated intravascular coagulation) vs HELLP syndrome Resolved --Possible Eclampsia/HELLP Syndrome Resolved --s/p Cardiac arrest x2 on admission and on 10/07 ACLS protocol followed by revival Echo showed preserved Ef --Anoxic brain injury, Developed following cardiac arrest, continue supportive care --Shock-resolved now awaiting placement s/p pressor support --ADOLPH-resolved Stable --Sepsis 2/2 UTI Resolved --Hypernatremia, resolved, cont free water with TF Resolved --DVT prophylaxis - lovenox Disposition - Pending placement History Interval history: 1 y/o female patient with Eclampsia/help syndrome, s/p emergent section with DIC, hemorrhage, supracervical abdominal hysterectomy, acute respiratory failure , tracheostomy on T-piece with morbid obesity, s/p cardiac arrest 12/08/2019 status post CPR per ACLS, acute hypoxic brain injury Acute kidney injury improved, severe shock requiring pressors, DIC septic shock improved, history of C. difficile colitis on vancomycin. Tracheostomy on T-piece, continues to require 5 L of oxygen. Brief history; 30 year old -[place] female CHE 10/25/20 at 36w5d who presents with seizures in triage on 10/02/20. Pt was not able to provide history but per pt's , she presented to the hospital to return a 24 hour urine specimen for analysis. She then suddenly reported that she did not feel good. She was taken to labor and delivery and shortly after arrival, she began seizing. During this time, a code met was called because the patient became hypoxic. She was then noted to be without a pulse. Chest compressions were started immediately, and the patient was emergently taken to the operating room for delivery of the fetus. Off note, This patient has had care at [facility] with comanagement by [facility] since 11 wks complicated by ADHD, morbid obesity, generalized anxiety disorder, panic attacks, chronic narcotic use, fibromyalgia, GERD, Irritable Bowel Syndrome, Migraines, h/o endometrial ablation and ovarian vein embolization, genital herpes, insomnia, LGA fetus, nausea and vomiting, polyhydramnios, quad screen positive for Down's Syndrome, and previous x 3. She is GBS negative. , Patient tracheostomy on ventilatory support, unable to wean, continue supportive care poor prognosis 11:30: Pt brought to L&D triage for evaluation of possible labor. Pt accompanied by her spouse. Pt spouse poor historian; unable to obtain history- allergies at this time. Pt taken from registration to triage area via WC. Pt unresponsive, a ctively seizing with snorous respirations. supervisor rice milling, Kassy, called and requesting assistance. 11:35: Multiple staff at bedside. Pt 02 sat 67% on nonrebreather, unable to read BP . Yifan Theodore CRNA, at bedside for intubation and assistance with IV insertion. INT attempt by multiple RNs unsuccessful at this time. 11:42: Pt being bagged by KORIN, 02% 79%. No pulse palpated, compressions on at this time; bharati young called and Dr. Newberry preparing OR for emergent c/s. 11:44: Continued compressions on stretcher while transporting pt to OR 1. Pt being bagged with jaw thrust manuever in place by KORIN Stringer student. 11:45: Arrival to OR 1. Dr. Newberry and Dr. Portillo present for emergent c/s. Code team arrived for continued care. patient revived and c/s done Patient has been bleeding from C/s site followed by supracervical hysterectomy for severe bleeding, Patient transfused multiple units of PRBC, Patient in DIC. Patient transferred to the ICU Hospital course; 10/03. Patient seen and examined at bedside this morning. Patient is nonresponsive and mechanically ventilated. On pressors. Labs reviewed-has leukocytosis, anemia, thrombocytopenia, ADOLPH and lactic acidosis. Started on IV antibiotics to cover possible sepsis secondary to DIC. Hematology oncology recommendations appreciated-needs additional cryoprecipitate and FFP. Monitor D-dimer, fibrinogen and frequent labs. Nephrology consulted for lactic acidosis and ADOLPH. 10/04. Remains mechanically ventilated. Retsof antibiotics. Labs shows improved acidosis - lactic acid 3.5. Hb drop noted. Getting transfused 2 units PRBCs. Platelet count is ~40k. Continue to monitor labs closely. Critical care team on board. 10/05; xray reviewed, concerning for multifocal infilrate, likely underlying Pneumonia, will add ID consult to assist with management of this critically ill patient, start tube feed, closely monitor renal system 10/06: Resumed care, remains on mechanical ventilation. No active bleeding, H&H stable. Continue to monitor CBC and BMP. Continue IV antibiotic for underlying pneumonia. Follow critical care and ID recommendation. 10/07: Remains on mechanical ventilation. No active bleeding, H&H stable. Cri tical care following, wean off ventilation as tolerated. 10/08: Patient had another cardiac arrest last night. Remains on mechanical ventilation, update family. Continue supportive care -poor prognosis 10/09: Called patient mother and discussed about patient care and management. Answered all question to best of my knowledge and family satisfaction. Patient remains on mechanical ventilation, cardiac arrest x2 so far. Critically sick, poor prognosis 10/10: remains on mechanical ventilation. h/h stable, no active bleeding. monitor CBC/BMP 10/11: WBC trended up with diarrhea, started on vancomycin po. remains on MV, off pressor, tolerating TF 10/12: remains on MV, off pressor, tolerating TF. called family for update but unable to reach, could not leave message as it was full. cont supportive care, wean off vent as tolerated. 10/13/2020; patient is on mechanical ventilation, tolerating tube feeding. Patient has labored breathing. Neuro was consulted and recommend MRI. Patient is on Precedex. Rectal tube in place. 10/14/2020; patient is on mechanical ventilation, Precedex. Patient had fever and blood culture ordered. Patient is on IV vancomycin per ID recommendation. Neuro consulted and recommend MRI. Continue to monitor. Prognosis is guarded. 10/15/2020; patient is on mechanical ventilation, Precedex. Patient had fever and blood culture ordered. Patient is on IV vancomycin per ID recommendation. Neuro consulted and recommend MRI. Continue to monitor. Prognosis is guarded. 12: Remains with C.DIFF and Bactermia, Poor prognosis. No purposeful movement. MRI and EEG discussed with Intensvisit, Continue aggressive BP control. 3: Blood pressure better controlled MRI done 10/15 shows mild improvement in edema. We will continue to monitor mother was at bedside yesterday. Nursing documentation trach and PEG discussed with the mother including goals of care. She is still in denial about the gravity of her daughters her condition which is understandable considering her age. Continue aggressive management at this time. Await for bacteremia to clear by ID before placing PICC line. 10/19: Patient for possible PEG and Trach, ID following, repeat cultures remain negative. Poor prognosis 10/20: Pt noted to DVT and SVT in the RUE, Vascular consult and will also obtain Hematology for possible considering changing in Anticoagulation. CONTINUE TO M ONITOR H/H and PLT. Family updated by [employer]ens[employer]. Heparin gtt started. Will check CBC and BMP 10/21: Continue supporive care, Diarrhea now resolving, But still with persistent Fever, May need repeat CT/AP per ID, still with profused Encephalopathy 10/22: Continue supportive care, weaning, awaiting repeat Imaging. FOLLOW Fever curve. Enoxparin restarted 10/23: Continue supportive care, wean as tolerated. 10/24; Started on CPAP trial, discussed with pulmonary, still with diarrhea. 10/25: Patients seen and examined, no clinical changes, still with diarrhea. ?meaningful recovery. 10/26: Clinically unchanged, continue CPAP trial, Will discuss with Neurology about re-evaluation, ?Need for repeat CT head. ?PRESS considering initial elevated BP, now stable. 10/27; tracheostomy on vent, weaning trials, vital signs noted, poor prognosis 10/28; unable to wean, tracheostomy on vent. Sepsis. Continue current management. Consults and recommendations noted and appreciated 10/30/2020;Patient on T-piece 5 L of oxygen not in acute distress, noncommunicative 11/02/2020; patient on T-piece 5 L of oxygen 11/03/2020; patient's fever slightly improved low-grade, continue current management, remains on T-piece with 5 L of oxygen 11/04/2020; T-max last 24 hours 100.3 F, new cultures negative to date, monitor off antibiotics Patient is off Levophed, blood pressures reasonable level, tracheostomy on T- piece 3 to 5 L nasal cannula oxygen 11/05/2020; tracheostomy on T-piece patient remains on 5 L of nasal cannula oxygen, unresponsive severe hypoxic brain injury I called patient's mother Ms. Pamela Bassett as well as patient's spouse Mr. Danilo Dimas at [phone] unable to reach them Left voicemail on Ms. Pamela Bassettz phone and encouraged him to call back 11/06/2020; I tried to call again today Ms. Pamela Bassett to discuss patient's condition and treatment plan and update consultants recommendations and patient's prognosis., unable to reach her 11/07/20 Will try LTAC/Hospice 11/08/20 Same condition 11/09/2020 Same condition 11/10/2020; family conference was held by case management yesterday 11/09/2020, family decided and agreed for SNF placement 11/11/2020; patient seen and examined, clinically no change tracheostomy on 5 L of nasal cannula oxygen, hemodynamically and clinically stable for discharge To LTAC versus SNF, DC planning per case management 11/12/2020; clinically no change, continue current management, DC planning per case management possible SNF placement 11/13/2020; patient is receiving herpes flareup treatment per ID 11/14/2020; clinically no change, awaiting SNF placement 11/15/2020; clinically no change, tracheostomy on T-piece on 5 L oxygen, awaiting placement 11/16/2020; patient awaiting placement 11/18/2020; abdominal CT scan negative for insulinoma or pancreatic tumor ,clinically no change Awaiting SNF placement 11/19/2020; remains on 4 L of oxygen tracheostomy via T-piece, awaiting SNF placement 11/20/2020 Awaiting SNF placement 11/21/2020 Waiting for SNF placement 11/22/2020 Waiting for placement 11/23/2020 Waiting for placement 11/24/2020 through 12/24/2020 Patient waiting for placement 11/27/2020; patient remains hypoglycemic on D10 W IV fluids, CT abdomen negative for insulinoma Remains stable awaiting SNF placement, tracheostomy on 5 L oxygen via T-piece 11/28/2020; awaiting SNF placement 11/29/2020; patient remains unresponsive, tracheostomy on T-piece, on 4 to 5 L of oxygen Wean as tolerated, DC planning per case management possible SNF placement 11/30/2020; awaiting SNF placement 12/02/2020; awaiting placement, stable for discharge 12/03/2020; clinically no change, awaiting placement, tracheostomy on T-piece, anoxic brain injury 12/04/2020 Patient has anoxic encephalopathy with anoxic brain brain injury Awaiting placement 12/05/2020; anoxic brain injury, awaiting placement. 12/06/20; anoxic brain injury. Awaiting placement. 12/07/2020; anoxic brain injury, awaiting placement. 12/09/2020; anoxic brain injury, awaiting placement. 12/10/2020; patient had episodes of fever overnight. CBC, BMP, blood culture, UA and chest x-ray ordered, will follow and manage accordingly. Urinalysis is suggestive of UTI and I put the patient on ceftriaxone, order urine culture. Chest x-ray is normal. 12/11/2020; patient is on ceftriaxone day 2 for UTI. We will continue to follow urine culture. 12/12/2020. Day #3 of Rocephin for UTI. We will continue for 2 more days while she is here. Present UTI. 12/13/2020. Day #4 of Rocephin for UTI. Patient remains on 50% with tracheostomy. Remains unresponsive with evidence of anoxic encephalopathy unable to make needs known. 12/14/2020. Day #5 of Rocephin for UTI completed today. Remains encephalopathic unable to make needs known. Remains on 50% unable to decrease oxygen via tracheostomy. Overall prognosis remains extremely poor. 12/15: Continue to monitor. Stop and monitor antibiotics at this time. Continue to wean oxygen as tolerated. Wean oxygen as tolerated. Case management working on placement. 12/16: Continue supportive care aspiration precautions. Awaiting placement discussion. Monitor fever curve. Prognosis remains poor no evidence of neurological recovery as of today 12/17: Continue supportive care, check labs and chest xray. Still monitor off antibiotics. Monitor Sodium level 12/18: Patient remains with intermittent low grade fever, reviewed EEG from September again, consistent for Ischemic Hypoxic Encephalopathy, patient with decorticating posturing type presentation. Will discuss with clinical data associate to optimize diet so we can discontinue D5. CXR with no abnormality. Discussed extensively with the nursing staff at bedside CXR IMPRESSION: 1. No acute findings. 12/19: No clinical change 12/20: No clinical change, now off abx, monitor, discussed her medications with our pharmacist I believe that her posture and rigidity is likely from underlying anoxic encephalopathy. Continue to monitor and await placement decision. Continue aggressive suctioning. Plan discussed in detail with the nursing staff 12/21: Continue supportive care. Will give 500 cc bolus of fluid today to replace insensible losses. Tachycardia appears to be improving. Blood pressure precludes adjusting cardiac meds. Still awaiting placement from case management. Plan discussed in detail with the nursing staff 12/22. Continue support supportive care. Tracheostomy and PEG in place. Remains nonresponsive. Awaiting placement. 12/23. Continue support supportive care. Tracheostomy and PEG in place. Remains nonresponsive. Awaiting placement. Remains tachycardic. Decrease dose of lasix. Will try low dose metoprolol. Monitor BP closely 12/24. Continue support supportive care. Tracheostomy and PEG in place. Remains nonresponsive. Awaiting placement. Heart rate slightly better. Continue to monitor BP closely 12/25. Continue support supportive care. Tracheostomy and PEG in place. Remains nonresponsive. Awaiting placement. 12/26. Continue support supportive care. Tracheostomy and PEG in place. Remains nonresponsive. Awaiting placement 12/27. Continue support supportive care. Tracheostomy and PEG in place. Remains nonresponsive. Awaiting placement 12/28. Had fever yesterday. Blood culture drawn. UA - UTI - started on antibiotics. Now tracheal aspirate is growing GN rods. 12/29: Continue IV antibiotics, continue supportive care. Since admission patient has shown minimal or no chance of neurological recovery. Need 24/7 assistance. Currently on trach and PEG, nonverbal. Waiting on SNF placement. Discussed with case coordinator today. 12/30: Continue IV antibiotics for UTI, continue supportive care. Pending placement 12/31: continue supportive care. continue supportive care. Pending placement 01/01: continue supportive care. Pending placement. cont Iv abx for UTI till 01/04 01/02: Continue supportive care, pending placement. Sodium level slightly elevated, will start hypotonic fluid. Continue antibiotics till 01/04 01/03; cont hypotonic fluid, increase free water with TF for hypernatremia, follow BMP. cont supportive care. pending placement. cont cefepime. recx blood 01/04: resolved hyponatremia, cont supportive care, pending placement. Last day of supplement today. 01/05: Continue supportive care, pending placement. Monitor H&H and fever curve off antibiotic. 01/06; monitor off abx, suction as needed, Continue supportive care, pending placement. 01/07: Discharge pending on placement, vitals stable. Continue supportive care 01/08: Discharge pending on placement, vitals stable. Continue supportive care. stop lasix, increase metoprolol to 25mg BID for ST. 01/09 patient resting with eyes closed. Opens eyes to tactile stimulus, has a blink reflex, does not follow simple commands, has a T-collar / G-tube Lab results reviewed, low-grade fever, 01/10 Eyes open, does not follow simple commands, no acute events overnight 01/11 no acute events overnight, Waiting for placement 01/12 No acute events overnight. Patient awaiting for placement 01/13. No new issues. Awaiting placement 01/14. No new issues. Awaiting placement. 01/15. No new issues. Awaiting placement. 01/16. No new issues. Patient remain stable. Awaiting placement. Check maintenance labs. 01/17. Routine maintenance labs were ordered and are still pending. Await placement. 01/18. Patient with low-grade fever past 24-48 hrs. WBC within normal limits. Check chest x-ray, urinalysis and consider blood cultures. Continue tracheostomy care, secretion control and airway management. Patient currently with PEG and tube feedings at 60 cc an hour. Nutritional support and aspiration precautions. 01/19. Temperature 100.7 overnight. Continue to monitor closely. Continue tracheostomy care, secretion control and airway management. Patient currently with PEG and tube feedings at 60 cc an hour. Nutritional support and aspiration precautions. 01/20. Continue to monitor closely. Continue tracheostomy care, secretion control and airway management. Patient currently with PEG and tube feedings at 60 cc an hour. Nutritional support and aspiration precautions. 01/21. Afebrile overnight. Continue to monitor closely. Continue tracheostomy care, secretion control and airway management. Patient currently with PEG and tube feedings at 60 cc an hour. Nutritional support and aspiration precautions. 01/22. Continue to monitor closely. Continue tracheostomy care, secretion control and airway management. Patient currently with PEG and tube feedings at 60 cc an hour. Nutritional support and aspiration precautions. 01/23. Continue tracheostomy care, secretion control and airway management. Patient currently with PEG and tube feedings at 60 cc an hour. Nutritional support and aspiration precautions. Will get routine labs tomorrow. 01/24. Labs reviewed. No abnormalities. Continue tracheostomy care, secretion control and airway management. Patient currently with PEG and tube feedings at 60 cc an hour. Nutritional support and aspiration precautions. 01/25. Temp 100.6. More sleepy today. Will get chest xray, blood culture, urinalysis, sputum cultures. Will start on empirical abx. 01/26: Vitals noted, slightly tachycardic. Follow culture work-up, continue supportive care. 01/27: Spiking low-grade temp, negative UA, sputum culture and recent blood cultures also negative. Continue to monitor off antibiotics. Continue supportive care. Pending placement. 01/28: cont to spike low grade temp, negative UA, sputum culture and recent blood cultures also negative. Continue to monitor off antibiotics. will order fpr sinus xry. Continue supportive care. Pending placement. 01/29: Continue to follow clinically, intermittently spiking low-grade temp, all recent culture work is negative, negative UA, normal respiratory jaylan 1 tracheal aspirate. Vitals noted and currently stable. Pending placement 01/30: Clinically unchanged, continue to monitor vitals, continue supportive cares. Pending placement. Discussed plan of care with RN at the bedside. 01/31 - TODATE: cont supportive care, pending placement. monitor vitals carefully. Discussed with family at the bedside. 02/06. Patient afebrile today. Continue trach care. Secretions stable today. Culture data negative so far. Awaiting placement. 02/07. Awaiting placement awaiting family member to evaluate papers. Continue trach care secretions stable. Pending placement 02/09: Intermittent fever, ?drug related, will check cxr and also labs. No new complaints. 02/10: Patient's trach dislodged today. Nevertheless respiratory status is intact attempt to reinsert was unsuccessful will monitor discussed with nursing staff to pay close attention to the patient. Considering that this was not a planned decannulation I will start the patient on continuous pulse ox until full evaluation was done by pulmonary. 02/13/2021 Vital signs stable Unresponsive secondary to anoxic encephalopathy Awaiting placement 02/14/2021 Awaiting placement 02/15/2021 Anoxic encephalopathy Awaiting placement 02/16/2021 Anoxic encephalopathy Awaiting placement 02/17/2021 Anoxic encephalopathy awaiting placement 02/18/2021 Anoxic encephalopathy awaiting placement 02/19/2021 Anoxic encephalopathy awaiting placement 02/20/2021 Anoxic encephalopathy awaiting placement 02/21/2021 Anoxic encephalopathy awaiting placement 02/22/2021 Anoxic encephalopathy awaiting placement 02/23/2021 Anoxic encephalopathy awaiting placement 02/24/2021 Anoxic encephalopathy awaiting placement 02/25/2021 Anoxic encephalopathy waiting for placement 02/26 Awaiting placement 02/27. Awaiting placement 02/28. No change in medical condition. Awaiting placement 03/01. No medical changes noted. Awaiting placement 03/01. No medical changes noted. Awaiting placement 03/02. Had temperature more than 100 Fahrenheit. Ordered labs and chest x-ray. Labs reviewed. No pna and no leukocytosis. Procalcitonin negative. Blood cultures negative so far. Continue to monitor for now 03/03. Awaiting placement Hospitalist Physical - Physical exam Narrative exam: VITAL SIGNS: Reviewed. GENERAL: Trach in place HEAD: No signs of head trauma. EYES: Pupils are equal. NECK: No adenopathy, no JVD. CHEST: Diminished breath sounds CARDIAC: normal S1 and S2, without murmurs, gallops, or rubs. ABDOMEN: Soft, non tender and non distended. No rebound or guarding, and no masses palpated. Bowel Sounds normal MUSCULOSKELETAL: No edema NEUROLOGIC EXAM: Not responsive SKIN: No obvious lesions - Constitutional Vitals: Temp Pulse Resp BP Pulse Ox 98.6 F 100 H 16 113/76 96 03/02/21 20:47 03/02/21 22:00 03/02/21 22:00 03/03/21 09:22 03/02/21 22:00 HEART Score - HEART Score Age: < 45 Risk factors: 1-2 risk factors - Critical Actions Critical Actions: >7 pts:50-65% risk of adverse cardiac event. Early invasive measures Results - Labs CBC & Chem 7: 03/03/21 06:00 03/03/21 06:00 Labs: Laboratory Last Values WBC 8.1 K/mm3 (4.5-11.0) 03/03/21 06:00 RBC 5.45 M/mm3 (3.65-5.03) H 03/03/21 06:00 Hgb 13.4 gm/dl (10.1-14.3) 03/03/21 06:00 Hgb Comment See scanned result 10/04/20 Unknown Hct 40.9 % (30.3-42.9) 03/03/21 06:00 MCV 75 fl (79-97) L 03/03/21 06:00 MCH 25 pg (28-32) L 03/03/21 06:00 MCHC 33 % (30-34) 03/03/21 06:00 RDW 14.9 % (13.2-15.2) 03/03/21 06:00 Plt Count 276 K/mm3 (140-440) 03/03/21 06:00 Lymph % (Auto) 29.4 % (13.4-35.0) 03/03/21 06:00 Morton % (Auto) 9.9 % (0.0-7.3) H 03/03/21 06:00 Eos % (Auto) 2.2 % (0.0-4.3) 03/03/21 06:00 Baso % (Auto) 0.5 % (0.0-1.8) 03/03/21 06:00 Lymph # (Auto) 2.4 K/mm3 (1.2-5.4) 03/03/21 06:00 Morton # (Auto) 0.8 K/mm3 (0.0-0.8) 03/03/21 06:00 Eos # (Auto) 0.2 K/mm3 (0.0-0.4) 03/03/21 06:00 Baso # (Auto) 0.0 K/mm3 (0.0-0.1) 03/03/21 06:00 Add Manual Diff Complete 02/09/21 10:59 Total Counted 100 02/09/21 10:59 Seg Neutrophils % 58.0 % (40.0-70.0) 03/03/21 06:00 Seg Neuts % (Manual) 58.0 % (40.0-70.0) 02/09/21 10:59 Band Neutrophils % 2.0 % 10/15/20 05:50 Lymphocytes % (Manual) 29.0 % (13.4-35.0) 02/09/21 10:59 Reactive Lymphs % (Man) 1.0 % 10/02/20 12:18 Monocytes % (Manual) 13.0 % (0.0-7.3) H 02/09/21 10:59 Eosinophils % (Manual) 1.0 % (0.0-4.3) 10/29/20 07:56 Myelocytes % 2.0 % 10/02/20 13:05 Metamyelocytes % 1.0 % 10/14/20 04:00 Nucleated RBC % Not Reportable 02/09/21 10:59 Seg Neutrophils # 4.7 K/mm3 (1.8-7.7) 03/03/21 06:00 Seg Neutrophils # Man 3.7 K/mm3 (1.8-7.7) 02/09/21 10:59 Band Neutrophils # 0.0 K/mm3 02/09/21 10:59 Lymphocytes # (Manual) 1.8 K/mm3 (1.2-5.4) 02/09/21 10:59 Abs React Lymphs (Man) 0.0 K/mm3 02/09/21 10:59 Monocytes # (Manual) 0.8 K/mm3 (0.0-0.8) 02/09/21 10:59 Eosinophils # (Manual) 0.0 K/mm3 (0.0-0.4) 02/09/21 10:59 Basophils # (Manual) 0.0 K/mm3 (0.0-0.1) 02/09/21 10:59 Metamyelocytes # 0.0 K/mm3 02/09/21 10:59 Myelocytes # 0.0 K/mm3 02/09/21 10:59 Promyelocytes # 0.0 K/mm3 02/09/21 10:59 Blast Cells # 0.0 K/mm3 02/09/21 10:59 WBC Morphology Not Reportable 02/09/21 10:59 Hypersegmented Neuts Not Reportable 02/09/21 10:59 Hyposegmented Neuts Not Reportable 02/09/21 10:59 Hypogranular Neuts Not Reportable 02/09/21 10:59 Smudge Cells Not Reportable 02/09/21 10:59 Toxic Granulation Not Reportable 02/09/21 10:59 Toxic Vacuolation Not Reportable 02/09/21 10:59 Dohle Bodies Not Reportable 02/09/21 10:59 Pelger-Huet Anomaly Not Reportable 02/09/21 10:59 Ester Rods Not Reportable 02/09/21 10:59 Platelet Estimate Consistent w auto 02/09/21 10:59 Clumped Platelets Not Reportable 02/09/21 10:59 Plt Clumps, EDTA Not Reportable 02/09/21 10:59 Large Platelets Few 02/09/21 10:59 Giant Platelets Not Reportable 02/09/21 10:59 Platelet Satelliting Not Reportable 02/09/21 10:59 Plt Morphology Comment Not Reportable 02/09/21 10:59 RBC Morphology Not Reportable 02/09/21 10:59 Dimorphic RBCs Not Reportable 02/09/21 10:59 Polychromasia Not Reportable 02/09/21 10:59 Hypochromasia 1+ 02/09/21 10:59 Poikilocytosis Not Reportable 02/09/21 10:59 Anisocytosis Not Reportable 02/09/21 10:59 Microcytosis Not Reportable 02/09/21 10:59 Macrocytosis Not Reportable 02/09/21 10:59 Spherocytes Not Reportable 02/09/21 10:59 Pappenheimer Bodies Not Reportable 02/09/21 10:59 Sickle Cells Not Reportable 02/09/21 10:59 Target Cells Not Reportable 02/09/21 10:59 Tear Drop Cells Not Reportable 02/09/21 10:59 Ovalocytes Not Reportable 02/09/21 10:59 Stomatocytes Few 10/14/20 04:00 Helmet Cells Not Reportable 02/09/21 10:59 [place] Bodies Not Reportable 02/09/21 10:59 [place] Rings Not Reportable 02/09/21 10:59 Stollings Cells Not Reportable 02/09/21 10:59 Bite Cells Not Reportable 02/09/21 10:59 Crenated Cell Not Reportable 02/09/21 10:59 Elliptocytes Not Reportable 02/09/21 10:59 Acanthocytes (Spur) Not Reportable 02/09/21 10:59 Rouleaux Not Reportable 02/09/21 10:59 Hemoglobin C Crystals Not Reportable 02/09/21 10:59 Schistocytes Not Reportable 02/09/21 10:59 Malaria parasites Not Reportable 02/09/21 10:59 Sickle Cell Solubility See scanned result 10/04/20 Unknown Hemoglobin A See scanned result 10/04/20 Unknown Hemoglobin A2 See scanned result 10/04/20 Unknown Hemoglobin A2 Prime See scanned result 10/04/20 Unknown Hemoglobin C See scanned result 10/04/20 Unknown Hemoglobin D See scanned result 10/04/20 Unknown Hemoglobin E See scanned result 10/04/20 Unknown Hgb F Diffential Stain See scanned result 10/04/20 Unknown Hemoglobin F Quant See scanned result 10/04/20 Unknown Hemoglobin G See scanned result 10/04/20 Unknown Hemoglobin S See scanned result 10/04/20 Unknown Hemoglobin [place] See scanned result 10/04/20 Unknown Hemoglobin [place] See scanned result 10/04/20 Unknown Hemoglobin Analilia See scanned result 10/04/20 Unknown Variant Hemoglobin See scanned result 10/04/20 Unknown Abnorm Hgb IEF Confirm See scanned result 10/04/20 Unknown Hemoglobin Interpret See scanned result 10/04/20 Unknown Hemoglobinopathy Note See scanned result 10/04/20 Unknown Sharad Bodies Not Reportable 02/09/21 10:59 Hem Pathologist Commnt No 02/09/21 10:59 PT 13.6 Sec. (12.2-14.9) 10/21/20 13:54 INR 1.06 (0.87-1.13) 10/21/20 13:54 APTT 31.6 Sec. (24.2-36.6) 10/03/20 00:40 Fibrinogen 336 mg/dl (211-480) 10/04/20 10:00 D-Dimer 1974.47 ng/mlDDU (0-234) H 11/11/20 13:50 ABG pH 7.459 pH Units (7.350-7.450) H 10/26/20 10:30 POC ABG pCO2 20.7 mmHg (32.0-48.0) L 10/13/20 07:18 ABG pCO2 32.4 mm Hg 10/26/20 10:30 POC ABG pO2 137.9 mmHg (83-108) H 10/13/20 07:18 ABG pO2 112.2 mm Hg (80.0-90.0) H 10/26/20 10:30 POC ABG HCO3 14.8 10/13/20 07:18 ABG HCO3 22.5 mmol/L (20.0-26.0) 10/26/20 10:30 ABG O2 Saturation 98.2 % (95.0-99.0) 10/26/20 10:30 ABG O2 Content 18.5 (0.0-44) 10/26/20 10:30 POC ABG Base Excess -6.9 10/13/20 07:18 ABG Base Excess -0.6 mmol/L (-2.0-3.0) 10/26/20 10:30 ABG Hemoglobin 13.5 gm/dl (12.0-16.0) 10/26/20 10:30 ABG Oxyhemoglobin 98.3 (94-98) H 10/13/20 07:18 ABG Carboxyhemoglobin 1.3 % (0.0-5.0) 10/26/20 10:30 ABG Methemoglobin 0.5 % (0.0-1.5) 10/26/20 10:30 ABG Sodium 135.9 mmol/L (136.0-145.0) L 10/13/20 07:18 ABG Potassium 3.7 mmol/L (3.40-4.50) 10/13/20 07:18 ABG Chloride 111.0 mmol/L (98-107) H 10/13/20 07:18 ABG Glucose 109 mg/dL (65-95) H 10/13/20 07:18 VBG pH 6.949 (7.320-7.420) L* 10/02/20 Unknown Oxyhemoglobin 96.5 % (95.0-99.0) 10/26/20 10:30 Carboxyhemoglobin 0.3 (0.5-1.5) L 10/13/20 07:18 FiO2 25 % 10/26/20 10:30 Sodium 145 mmol/L (137-145) 03/03/21 06:00 Potassium 4.7 mmol/L (3.6-5.0) 03/03/21 06:00 Chloride 105.9 mmol/L (98-107) 03/03/21 06:00 Carbon Dioxide 27 mmol/L (22-30) 03/03/21 06:00 Anion Gap 17 mmol/L 03/03/21 06:00 BUN 16 mg/dL (7-17) 03/03/21 06:00 Creatinine 0.6 mg/dL (0.6-1.2) 03/03/21 06:00 Estimated GFR > 60 ml/min 03/03/21 06:00 BUN/Creatinine Ratio 27 % 03/03/21 06:00 Glucose 99 mg/dL (65-100) 03/03/21 06:00 POC Glucose 98 mg/dL (70-105) 03/03/21 04:59 Random Insulin 43.2 uIU/mL (<=19.6) H 11/02/20 19:19 Proinsulin See scanned result 11/02/20 19:19 C-Peptide 6.23 ng/mL (0.80-3.85) H 11/02/20 19:19 Lactic Acid 1.90 mmol/L (0.7-2.0) 10/04/20 22:00 Uric Acid 7.5 mg/dL (3.5-7.6) 10/02/20 13:05 Calcium 10.3 mg/dL (8.4-10.2) H 03/03/21 06:00 Ionized Calcium 4.4 mg/dL (4.8-5.6) L 10/07/20 21:00 Phosphorus 4.60 mg/dL (2.5-4.5) H 11/13/20 10:05 Magnesium 2.10 mg/dL (1.7-2.3) 11/13/20 10:05 Total Bilirubin 0.80 mg/dL (0.1-1.2) 03/03/21 06:00 AST 55 units/L (5-40) H 03/03/21 06:00 ALT 58 units/L (7-56) H 03/03/21 06:00 Alkaline Phosphatase 124 units/L (35-129) 03/03/21 06:00 Lactate Dehydrogenase 769 units/L (91-180) H 10/02/20 13:05 C-Reactive Protein 0.70 mg/dL (0.00-1.30) 11/11/20 13:50 NT-Pro-B Natriuret Pep 2788 pg/mL (0-450) H 10/04/20 10:00 Total Protein 8.0 g/dL (6.3-8.2) 03/03/21 06:00 Albumin 4.3 g/dL (3.9-5) 03/03/21 06:00 Albumin/Globulin Ratio 1.2 % 03/03/21 06:00 Procalcitonin < 0.05 ng/mL (<0.15) 03/02/21 02:30 Arterial Blood Glucose 109 mg/dL (65-95) H 10/13/20 07:18 Arterial Blood Ionized Calcium 4.6 mg/dL (4.6-5.3) 10/13/20 07:18 Urine Color Yellow (Yellow) 01/25/21 09:51 Urine Turbidity Cloudy (Clear) 01/25/21 09:51 Urine pH 7.0 (5.0-7.0) 01/25/21 09:51 Ur Specific [place] 1.011 (1.003-1.030) 01/25/21 09:51 Urine Protein <15 mg/dl mg/dL (Negative) 01/25/21 09:51 Urine Glucose (UA) Neg mg/dL (Negative) 01/25/21 09:51 Urine Ketones Neg mg/dL (Negative) 01/25/21 09:51 Urine Blood Neg (Negative) 01/25/21 09:51 Urine Nitrite Neg (Negative) 01/25/21 09:51 Urine Bilirubin Neg (Negative) 01/25/21 09:51 Urine Urobilinogen < 2.0 mg/dL (<2.0) 01/25/21 09:51 Ur Leukocyte Esterase Neg (Negative) 01/25/21 09:51 Urine WBC (Auto) 6.0 /HPF (0.0-6.0) 01/25/21 09:51 Urine RBC (Auto) 3.0 /HPF (0.0-6.0) 01/25/21 09:51 U Epithel Cells (Auto) < 1.0 /HPF (0-13.0) 01/25/21 09:51 Urine Bacteria (Auto) 1+ /HPF (Negative) 01/18/21 08:47 Urine WBC Clumps 3+ /HPF 11/11/20 13:50 Calcium Oxalate Crystal Few 11/11/20 13:50 Urine Mucus Few /HPF 01/25/21 09:51 Urine Yeast (Budding) 2+ /HPF 01/25/21 09:51 Vancomycin Trough 12.6 ug/mL (5.0-20.0) 10/21/20 13:54 Random Vancomycin 10.7 ug/mL (0-40.0) 10/16/20 13:09 Phenytoin 5.7 ug/mL (10.0-20.0) L 10/13/20 07:00 C. difficile Tox (PCR) Positive (Negative) 10/16/20 10:22 Coronavirus (PCR) Negative (Negative) 10/08/20 14:15 Blood Type O POSITIVE 10/02/20 12:50 Antibody Screen Negative 10/02/20 12:50 Crossmatch See Detail 10/02/20 12:50 Microbiology: Microbiology 03/02/21 04:40 Peripheral/Venous Blood Culture - Preliminary NO GROWTH AFTER 24 HOURS 03/01/21 23:43 Peripheral/Venous Blood Culture - Preliminary NO GROWTH AFTER 24 HOURS - Diagnostic Impressions Diagnostic Impressions: Echocardiogram 10/03/20 13:42 Transthoracic Echocardiogram Indication: S/P Cardiac Arrest R/O Cardiomyopathy BP: 133/71 Conclusions *Global left ventricular systolic function is normal. *The estimated ejection fraction is 60-65%. *There is trace of mitral regurgitation. *The right 0heart chambers are both slightly dilated. *There is mild tricuspid regurgitation. *There is mild-moderate pulmonary hypertension. *The right ventricular systolic pressure is calculated at 44 mmHg. *The study quality is technically difficult. Findings Procedure Info: The study quality is technically difficult. The study is technically limited due to patient body habitus. The study was technically limited due to the patient's inability to lay in the left lateral decubitus position. Left Ventricle: The left ventricular chamber size is normal. There is no left ventricular hypertrophy. Global left ventricular systolic function is normal. The estimated ejection fraction is 60-65%. Left Atrium: The left atrial chamber size is normal. Right Ventricle: The right ventricle is slightly dilated. Right Atrium: The right atrium is mildly dilated. Aortic Valve: The aortic valve leaflets are mildly thickened. There is no evidence of aortic regurgitation. There is no evidence of aortic stenosis. Mitral Valve: The mitral valve leaflets are mildly thickened. There is trace of mitral regurgitation. There is no evidence of mitral stenosis. Tricuspid Valve: There is mild tricuspid regurgitation. The right ventricular systolic pressure is calculated at 44 mmHg. There is evidence of mild pulmonary hypertension. Pulmonic Valve: There is trace pulmonic regurgitation. Pericardium: There is no pericardial effusion. Aorta: There is no dilatation of the ascending aorta. There is no dilatation of the aortic root. Venous: The inferior vena cava is dilated. Measurements Chambers 2D Name Value Normal Range IVSd (2D) 1 cm (0.6 - 1.1) LVPWd (2D) 1.01 cm (0.6 - 1.1) LVIDd (2D) 4.58 cm (3.7 - 5.6) LVIDs (2D) 3.17 cm (2 - 3.8) LV FS (2D) 30.93 % - EF Teichholz (2D) 58.66 % - Ao root diameter (2D) 2.94 cm (2 - 3.7) Volumes/Mass Name Value Normal Range LA ESV SP 4CH (A/L) 72.82 ml - LA ESV SP 2CH (A/L) 66.86 ml - LA ESV BP (A/L) 74.49 ml - LA ESV SP 4CH (MOD) 71.03 ml - LA ESV SP 2CH (MOD) 64.3 ml - LV EDV SP 4CH (MOD) 98.82 ml - LV ESV SP 4CH (MOD) 24.8 ml - EF SP 4CH (MOD) 74.9 % - LV EDV SP 2CH (MOD) 86.1 ml - LV ESV SP 2CH (MOD) 36.93 ml - EF SP 2CH (MOD) 57.11 % - LV EDV BP 94.4 ml - LV ESV BP 32.66 ml - BP EF (MOD) 65.4 % - Diastolic/Systolic Function Name Value Normal Range MV E-wave Vmax 1.04 m/sec - MV deceleration time 160.46 msec - MV A-wave Vmax 0.92 m/sec - MV E:A ratio 1.14 ratio - Aortic Valve Name Value Normal Range AV Vmax 2.12 m/sec - AV VTI 22.37 cm - AV peak gradient 17.95 mmHg - AV mean gradient 7.29 mmHg - LVOT diameter 2.01 cm - LVOT Vmax 1.8 m/sec - LVOT VTI 27.17 cm - LVOT peak gradient 12.91 mmHg - LVOT mean gradient 6.83 mmHg - SV LVOT 86.42 ml - ANITA (continuity Vmax) 2.7 cm2 - ANITA (continuity VTI) 3.86 cm2 - Ascending Ao 3.18 cm - Tricuspid Valve Name Value Normal Range TV E-wave Vmax 0.88 m/sec - TR Vmax 3.01 m/sec - TR peak gradient 36.27 mmHg - RAP 8 mmHg - RVSP 44 mmHg - IVC diameter 2.65 cm (1.2 - 2.3) Pulmonic Valve/Qp:Qs Name Value Normal Range PV Vmax 1.22 m/sec - PV peak gradient 5.91 mmHg - RVOT Vmax 0.87 m/sec - RVOT VTI 13.32 cm - RVOT peak gradient 3 mmHg - PV acceleration time 110.37 msec - [place]/IV: Voiding Method Incontinent IV Catheter Type [Right Foot] INT / Saline Lock IV Catheter Type [Left Forearm Peripheral IV ] IV Catheter Type [Left Wrist] INT / Saline Lock IV Catheter Type [Right Hand] INT / Saline Lock IV Catheter Type [Right INT / Saline Lock Antecubital] IV Catheter Type [Right Upper Mid-line arm] IV Catheter Type [Left Triple Lumen Cath Internal Jugular] IV Catheter Type [Left Hand] Peripheral IV IV Catheter Type [Left Peripheral IV Antecubital] Active Medications - Current Medications Current Medications: Generic Name Dose Route Start Last Admin Trade Name Freq PRN Reason Stop Dose Admin Acetaminophen 650 mg 10/05/20 16:34 03/02/21 17:41 Acetaminophen 325 Mg/10.15 Ml Oral Liqd Unit Dose FEEDTUBE 650 mg Q6H PRN Administration Non Cardiac Pain or Temp>100.5 Albuterol 2.5 mg 11/05/20 13:03 11/06/20 13:04 Albuterol 2.5 Mg/3 Ml Nebu IH 2.5 mg Q4HRT PRN Administration Shortness Of Breath Alprazolam 0.25 mg 01/20/21 13:33 03/03/21 00:25 Alprazolam 0.25 Mg Tab PO 0.25 mg Q8H PRN Administration Anxiety Lipase/Protease/Amylase 1 each 10/05/20 11:09 Lipase 10,500/Protease 25,000/Amylase 43,750 (Units) Dr Barakat FEEDTUBE PRN PRN For Clogged Feeding Tube Enoxaparin Sodium 40 mg 10/22/20 10:00 03/03/21 09:22 Enoxaparin 40 Mg/0.4 Ml Inj SUB-Q 40 mg DAILY ERINN Administration Protocol Famotidine 20 mg 10/07/20 10:00 03/03/21 09:22 Famotidine 20 Mg Tab PO 20 mg BID ERINN Administration Hydralazine HCl 20 mg 10/07/20 11:49 10/17/20 07:20 Hydralazine 20 Mg/1 Ml Inj IV 20 mg Q6H PRN Administration SBP >170 Hydrophilic Ointment 1 applic 01/03/21 13:00 02/16/21 09:56 Lip Therapy Vaseline TP 1 applic DIRECT PRN Administration Dry Lips Dextrose 1,000 mls @ 30 mls/hr 01/03/21 12:00 02/11/21 18:44 D5w IV 30 mls/hr DIRECT ERINN Administration Metoprolol Tartrate 50 mg 02/02/21 16:01 03/03/21 09:22 Metoprolol Tartrate 25 Mg Tab PO 50 mg BID ERINN Administration Morphine Sulfate 2 mg 01/20/21 13:33 Morphine 2 Mg/1 Ml Inj IV Q4H PRN Pain, Moderate (4-6) Ondansetron HCl 4 mg 02/10/21 11:38 02/10/21 13:18 Ondansetron 4 Mg/2 Ml Inj IV 4 mg Q4H PRN Administration Nausea And Vomiting Simple Syrup 15 ml 10/05/20 11:09 Simple Syrup 15 Ml FEEDTUBE PRN PRN Hypoglycemia Simple Syrup 30 ml 10/05/20 11:09 Simple Syrup 15 Ml FEEDTUBE PRN PRN Hypoglycemia Sodium Bicarbonate 325 mg 10/05/20 11:09 12/16/20 08:19 Sodium Bicarbonate 325 Mg Tab FEEDTUBE 325 mg PRN PRN Administration For Clogged Feeding Tube Nutrition/Malnutrition Assess - Dietary Evaluation Nutrition/Malnutrition Findings: Nutrition Notes Start: 10/04/20 11:13 Freq: Status: Active Protocol: Document 02/24/21 09:40 AT (Rec: 02/24/21 09:51 AT [id number]) Co-Sign 02/24/21 09:40 LP Nutrition Notes Initial or Follow up Reassessment Current Diagnosis Respiratory Failure Other Pertinent Diagnosis s/p cardiac arrest x 2, anoxic brain injury Current Diet Promote at 65ml/hr Labs/Tests No new labs Pertinent Medications Reviewed Height 5 ft 8 in Weight 90.2 kg [place] Body Weight (kg) 63.63 BMI 30.2 Weight change and time frame 28% wt loss in 5 months (adm wt 124.738 kg) due to post- Weight Status Obese Subjective/Other Information Follow up for stable TF. Visited pt at bedside and observed Promote running at goal rate of 65 mL/hr. Per chart, pt is tolerating TF without issue. Percent of energy/protein needs met: 100%/98% Burn Absent Trauma Absent GI Symptoms None Difficulty In Swallowing,Chewing Food Allergy Yes Current % PO Negligible Minimum of two criteria Yes Interpretation of Weight Loss (severe) >2% in 1 week Fluid Accumulation Moderate to Severe (severe) #2 Nutrition Diagnosis Malnutrition Diagnosis Progress(for reassessment Continues documentation) #1 Nutrition Diagnosis Inadequate oral intake Diagnosis Progress(for reassessment Continues documentation) Is patient on ventilator? No Is Patient Ambulatory and/or Out of Bed No REE-([facility]-confined to bed) 1993.592 Kcal/Kg value to use for calculation 17 Approximate Energy Requirements Using 1533 kcal/Kg Calculation Used for Recommendations Kcal/kg Additional Notes PRO needs: 96-116g (1.25-1.5 g /kg AdBW 77kg) Fluid needs: 1 mL/kcal or per MD Nutrition Intervention Change Diet Order: Continue Nutrition Support: Promote at 65 mL/hr Flush 50 mL q4h Kcal 1,560 Protein (gm) 98 Fluid (mL) 1,309 Goal #1 TF tolerance Goal #2 TF to meet at least 75% estimated energy and protein needs Anticipated Discharge Needs: Promote at 65 ml/hr Flush 50 ml q4h Follow-Up By: 03/03/21 Additional Comments F/U for stable TF, wound status
[2021-03-03] MEDS: ACETAMINOPHEN 325 MG/10.15 ML ORAL LIQD UNIT DOSE FEEDTUBE PRN (17:30)
[2021-03-04 05:24] LABS: Basophils % (Auto) 0.3 % (0.0-1.8); Eosinophils # (Auto) 0.2 K/mm3 (0.0-0.4); Eosinophils % (Auto) 2.1 % (0.0-4.3); Hemoglobin 13.4 gm/dl (10.1-14.3); Lymphocytes # (Auto) 2.7 K/mm3 (1.2-5.4); Lymphocytes % (Auto) 30.9 % (13.4-35.0); Mean Corpuscular HGB Conc 33 % (30-34); Mean Corpuscular Volume 75 fl (79-97); Monocytes # (Auto) 0.8 K/mm3 (0.0-0.8); Monocytes % (Auto) 9.1 % (0.0-7.3); Platelet Count 298 K/mm3 (140-440); Red Blood Count 5.49 M/mm3 (3.65-5.03); Red Cell Distribution Width 15.3 % (13.2-15.2)
[2021-03-04 05:46] LABS: Alanine Aminotransferase 53 units/L (7-56); Albumin 4.2 g/dL (3.9-5); Blood Urea Nitrogen 15 mg/dL (7-17); Hemolysis Index 0
[2021-03-04 05:49] LABS: BUN/Creatinine Ratio 30
[2021-03-04] MEDS: METOPROLOL TARTRATE 25 MG TAB PO SCH ×2 (09:32→21:55)
[2021-03-04] MEDS: FAMOTIDINE 20 MG TAB PO SCH ×2 (09:32→21:56)
[2021-03-04] MEDS: ENOXAPARIN 40 MG/0.4 ML INJ SUB-Q SCH (09:32)
--- NOTE | 2021-03-04 10:18 | Progress Note ---
Assessment and Plan Assessment and plan: --DIC (disseminated intravascular coagulation) vs HELLP syndrome Resolved --Possible Eclampsia/HELLP Syndrome Resolved --s/p Cardiac arrest x2 on admission and on 10/07 ACLS protocol followed by revival Echo showed preserved Ef --Anoxic brain injury, Developed following cardiac arrest, continue supportive care --Shock-resolved now awaiting placement s/p pressor support --ADOLPH-resolved Stable --Sepsis 2/2 UTI Resolved --Hypernatremia, resolved, cont free water with TF Resolved --DVT prophylaxis - lovenox Disposition - Pending placement History Interval history: 1 y/o female patient with Eclampsia/help syndrome, s/p emergent section with DIC, hemorrhage, supracervical abdominal hysterectomy, acute respiratory failure , tracheostomy on T-piece with morbid obesity, s/p cardiac arrest 12/08/2019 status post CPR per ACLS, acute hypoxic brain injury Acute kidney injury improved, severe shock requiring pressors, DIC septic shock improved, history of C. difficile colitis on vancomycin. Tracheostomy on T-piece, continues to require 5 L of oxygen. Brief history; 30 year old -[place] female CHE 10/25/20 at 36w5d who presents with seizures in triage on 10/02/20. Pt was not able to provide history but per pt's , she presented to the hospital to return a 24 hour urine specimen for analysis. She then suddenly reported that she did not feel good. She was taken to labor and delivery and shortly after arrival, she began seizing. During this time, a code met was called because the patient became hypoxic. She was then noted to be without a pulse. Chest compressions were started immediately, and the patient was emergently taken to the operating room for delivery of the fetus. Off note, This patient has had care at [facility] with comanagement by [facility] since 11 wks complicated by ADHD, morbid obesity, generalized anxiety disorder, panic attacks, chronic narcotic use, fibromyalgia, GERD, Irritable Bowel Syndrome, Migraines, h/o endometrial ablation and ovarian vein embolization, genital herpes, insomnia, LGA fetus, nausea and vomiting, polyhydramnios, quad screen positive for Down's Syndrome, and previous x 3. She is GBS negative. , Patient tracheostomy on ventilatory support, unable to wean, continue supportive care poor prognosis 11:30: Pt brought to L&D triage for evaluation of possible labor. Pt accompanied by her spouse. Pt spouse poor historian; unable to obtain history- allergies at this time. Pt taken from registration to triage area via WC. Pt unresponsive, a ctively seizing with snorous respirations. photographic colorist, Kassy, called and requesting assistance. 11:35: Multiple staff at bedside. Pt 02 sat 67% on nonrebreather, unable to read BP . Yifan Theodore CRNA, at bedside for intubation and assistance with IV insertion. INT attempt by multiple RNs unsuccessful at this time. 11:42: Pt being bagged by KORIN, 02% 79%. No pulse palpated, compressions on at this time; bharati young called and Dr. Newberry preparing OR for emergent c/s. 11:44: Continued compressions on stretcher while transporting pt to OR 1. Pt being bagged with jaw thrust manuever in place by KORIN Stringer student. 11:45: Arrival to OR 1. Dr. Newberry and Dr. Portillo present for emergent c/s. Code team arrived for continued care. patient revived and c/s done Patient has been bleeding from C/s site followed by supracervical hysterectomy for severe bleeding, Patient transfused multiple units of PRBC, Patient in DIC. Patient transferred to the ICU Hospital course; 10/03. Patient seen and examined at bedside this morning. Patient is nonresponsive and mechanically ventilated. On pressors. Labs reviewed-has leukocytosis, anemia, thrombocytopenia, ADOLPH and lactic acidosis. Started on IV antibiotics to cover possible sepsis secondary to DIC. Hematology oncology recommendations appreciated-needs additional cryoprecipitate and FFP. Monitor D-dimer, fibrinogen and frequent labs. Nephrology consulted for lactic acidosis and ADOLPH. 10/04. Remains mechanically ventilated. [place] antibiotics. Labs shows improved acidosis - lactic acid 3.5. Hb drop noted. Getting transfused 2 units PRBCs. Platelet count is ~40k. Continue to monitor labs closely. Critical care team on board. 10/05; xray reviewed, concerning for multifocal infilrate, likely underlying Pneumonia, will add ID consult to assist with management of this critically ill patient, start tube feed, closely monitor renal system 10/06: Resumed care, remains on mechanical ventilation. No active bleeding, H&H stable. Continue to monitor CBC and BMP. Continue IV antibiotic for underlying pneumonia. Follow critical care and ID recommendation. 10/07: Remains on mechanical ventilation. No active bleeding, H&H stable. Cri tical care following, wean off ventilation as tolerated. 10/08: Patient had another cardiac arrest last night. Remains on mechanical ventilation, update family. Continue supportive care -poor prognosis 10/09: Called patient mother and discussed about patient care and management. Answered all question to best of my knowledge and family satisfaction. Patient remains on mechanical ventilation, cardiac arrest x2 so far. Critically sick, poor prognosis 10/10: remains on mechanical ventilation. h/h stable, no active bleeding. monitor CBC/BMP 10/11: WBC trended up with diarrhea, started on vancomycin po. remains on MV, off pressor, tolerating TF 10/12: remains on MV, off pressor, tolerating TF. called family for update but unable to reach, could not leave message as it was full. cont supportive care, wean off vent as tolerated. 10/13/2020; patient is on mechanical ventilation, tolerating tube feeding. Patient has labored breathing. Neuro was consulted and recommend MRI. Patient is on Precedex. Rectal tube in place. 10/14/2020; patient is on mechanical ventilation, Precedex. Patient had fever and blood culture ordered. Patient is on IV vancomycin per ID recommendation. Neuro consulted and recommend MRI. Continue to monitor. Prognosis is guarded. 10/15/2020; patient is on mechanical ventilation, Precedex. Patient had fever and blood culture ordered. Patient is on IV vancomycin per ID recommendation. Neuro consulted and recommend MRI. Continue to monitor. Prognosis is guarded. 12: Remains with C.DIFF and Bactermia, Poor prognosis. No purposeful movement. MRI and EEG discussed with Intensvisit, Continue aggressive BP control. 3: Blood pressure better controlled MRI done 10/15 shows mild improvement in edema. We will continue to monitor mother was at bedside yesterday. Nursing documentation trach and PEG discussed with the mother including goals of care. She is still in denial about the gravity of her daughters her condition which is understandable considering her age. Continue aggressive management at this time. Await for bacteremia to clear by ID before placing PICC line. 10/19: Patient for possible PEG and Trach, ID following, repeat cultures remain negative. Poor prognosis 10/20: Pt noted to DVT and SVT in the RUE, Vascular consult and will also obtain Hematology for possible considering changing in Anticoagulation. CONTINUE TO M ONITOR H/H and PLT. Family updated by [employer]ens[employer]. Heparin gtt started. Will check CBC and BMP 10/21: Continue supporive care, Diarrhea now resolving, But still with persistent Fever, May need repeat CT/AP per ID, still with profused Encephalopathy 10/22: Continue supportive care, weaning, awaiting repeat Imaging. FOLLOW Fever curve. Enoxparin restarted 10/23: Continue supportive care, wean as tolerated. 10/24; Started on CPAP trial, discussed with pulmonary, still with diarrhea. 10/25: Patients seen and examined, no clinical changes, still with diarrhea. ?meaningful recovery. 10/26: Clinically unchanged, continue CPAP trial, Will discuss with Neurology about re-evaluation, ?Need for repeat CT head. ?PRESS considering initial elevated BP, now stable. 10/27; tracheostomy on vent, weaning trials, vital signs noted, poor prognosis 10/28; unable to wean, tracheostomy on vent. Sepsis. Continue current management. Consults and recommendations noted and appreciated 10/30/2020;Patient on T-piece 5 L of oxygen not in acute distress, noncommunicative 11/02/2020; patient on T-piece 5 L of oxygen 11/03/2020; patient's fever slightly improved low-grade, continue current management, remains on T-piece with 5 L of oxygen 11/04/2020; T-max last 24 hours 100.3 F, new cultures negative to date, monitor off antibiotics Patient is off Levophed, blood pressures reasonable level, tracheostomy on T- piece 3 to 5 L nasal cannula oxygen 11/05/2020; tracheostomy on T-piece patient remains on 5 L of nasal cannula oxygen, unresponsive severe hypoxic brain injury I called patient's mother Ms. Pamela Bassett as well as patient's spouse Mr. Danilo Dimas at [phone] unable to reach them Left voicemail on Ms. Pamela Bassettz phone and encouraged him to call back 11/06/2020; I tried to call again today Ms. Pamela Bassett to discuss patient's condition and treatment plan and update consultants recommendations and patient's prognosis., unable to reach her 11/07/20 Will try LTAC/Hospice 11/08/20 Same condition 11/09/2020 Same condition 11/10/2020; family conference was held by case management yesterday 11/09/2020, family decided and agreed for SNF placement 11/11/2020; patient seen and examined, clinically no change tracheostomy on 5 L of nasal cannula oxygen, hemodynamically and clinically stable for discharge To LTAC versus SNF, DC planning per case management 11/12/2020; clinically no change, continue current management, DC planning per case management possible SNF placement 11/13/2020; patient is receiving herpes flareup treatment per ID 11/14/2020; clinically no change, awaiting SNF placement 11/15/2020; clinically no change, tracheostomy on T-piece on 5 L oxygen, awaiting placement 11/16/2020; patient awaiting placement 11/18/2020; abdominal CT scan negative for insulinoma or pancreatic tumor ,clinically no change Awaiting SNF placement 11/19/2020; remains on 4 L of oxygen tracheostomy via T-piece, awaiting SNF placement 11/20/2020 Awaiting SNF placement 11/21/2020 Waiting for SNF placement 11/22/2020 Waiting for placement 11/23/2020 Waiting for placement 11/24/2020 through 12/24/2020 Patient waiting for placement 11/27/2020; patient remains hypoglycemic on D10 W IV fluids, CT abdomen negative for insulinoma Remains stable awaiting SNF placement, tracheostomy on 5 L oxygen via T-piece 11/28/2020; awaiting SNF placement 11/29/2020; patient remains unresponsive, tracheostomy on T-piece, on 4 to 5 L of oxygen Wean as tolerated, DC planning per case management possible SNF placement 11/30/2020; awaiting SNF placement 12/02/2020; awaiting placement, stable for discharge 12/03/2020; clinically no change, awaiting placement, tracheostomy on T-piece, anoxic brain injury 12/04/2020 Patient has anoxic encephalopathy with anoxic brain brain injury Awaiting placement 12/05/2020; anoxic brain injury, awaiting placement. 12/06/20; anoxic brain injury. Awaiting placement. 12/07/2020; anoxic brain injury, awaiting placement. 12/09/2020; anoxic brain injury, awaiting placement. 12/10/2020; patient had episodes of fever overnight. CBC, BMP, blood culture, UA and chest x-ray ordered, will follow and manage accordingly. Urinalysis is suggestive of UTI and I put the patient on ceftriaxone, order urine culture. Chest x-ray is normal. 12/11/2020; patient is on ceftriaxone day 2 for UTI. We will continue to follow urine culture. 12/12/2020. Day #3 of Rocephin for UTI. We will continue for 2 more days while she is here. Present UTI. 12/13/2020. Day #4 of Rocephin for UTI. Patient remains on 50% with tracheostomy. Remains unresponsive with evidence of anoxic encephalopathy unable to make needs known. 12/14/2020. Day #5 of Rocephin for UTI completed today. Remains encephalopathic unable to make needs known. Remains on 50% unable to decrease oxygen via tracheostomy. Overall prognosis remains extremely poor. 12/15: Continue to monitor. Stop and monitor antibiotics at this time. Continue to wean oxygen as tolerated. Wean oxygen as tolerated. Case management working on placement. 12/16: Continue supportive care aspiration precautions. Awaiting placement discussion. Monitor fever curve. Prognosis remains poor no evidence of neurological recovery as of today 12/17: Continue supportive care, check labs and chest xray. Still monitor off antibiotics. Monitor Sodium level 12/18: Patient remains with intermittent low grade fever, reviewed EEG from September again, consistent for Ischemic Hypoxic Encephalopathy, patient with decorticating posturing type presentation. Will discuss with armored car guard and driver to optimize diet so we can discontinue D5. CXR with no abnormality. Discussed extensively with the nursing staff at bedside CXR IMPRESSION: 1. No acute findings. 12/19: No clinical change 12/20: No clinical change, now off abx, monitor, discussed her medications with our pharmacist I believe that her posture and rigidity is likely from underlying anoxic encephalopathy. Continue to monitor and await placement decision. Continue aggressive suctioning. Plan discussed in detail with the nursing staff 12/21: Continue supportive care. Will give 500 cc bolus of fluid today to replace insensible losses. Tachycardia appears to be improving. Blood pressure precludes adjusting cardiac meds. Still awaiting placement from case management. Plan discussed in detail with the nursing staff 12/22. Continue support supportive care. Tracheostomy and PEG in place. Remains nonresponsive. Awaiting placement. 12/23. Continue support supportive care. Tracheostomy and PEG in place. Remains nonresponsive. Awaiting placement. Remains tachycardic. Decrease dose of lasix. Will try low dose metoprolol. Monitor BP closely 12/24. Continue support supportive care. Tracheostomy and PEG in place. Remains nonresponsive. Awaiting placement. Heart rate slightly better. Continue to monitor BP closely 12/25. Continue support supportive care. Tracheostomy and PEG in place. Remains nonresponsive. Awaiting placement. 12/26. Continue support supportive care. Tracheostomy and PEG in place. Remains nonresponsive. Awaiting placement 12/27. Continue support supportive care. Tracheostomy and PEG in place. Remains nonresponsive. Awaiting placement 12/28. Had fever yesterday. Blood culture drawn. UA - UTI - started on antibiotics. Now tracheal aspirate is growing GN rods. 12/29: Continue IV antibiotics, continue supportive care. Since admission patient has shown minimal or no chance of neurological recovery. Need 24/7 assistance. Currently on trach and PEG, nonverbal. Waiting on SNF placement. Discussed with hospice case manager today. 12/30: Continue IV antibiotics for UTI, continue supportive care. Pending placement 12/31: continue supportive care. continue supportive care. Pending placement 01/01: continue supportive care. Pending placement. cont Iv abx for UTI till 01/04 01/02: Continue supportive care, pending placement. Sodium level slightly elevated, will start hypotonic fluid. Continue antibiotics till 01/04 01/03; cont hypotonic fluid, increase free water with TF for hypernatremia, follow BMP. cont supportive care. pending placement. cont cefepime. recx blood 01/04: resolved hyponatremia, cont supportive care, pending placement. Last day of supplement today. 01/05: Continue supportive care, pending placement. Monitor H&H and fever curve off antibiotic. 01/06; monitor off abx, suction as needed, Continue supportive care, pending placement. 01/07: Discharge pending on placement, vitals stable. Continue supportive care 01/08: Discharge pending on placement, vitals stable. Continue supportive care. stop lasix, increase metoprolol to 25mg BID for ST. 01/09 patient resting with eyes closed. Opens eyes to tactile stimulus, has a blink reflex, does not follow simple commands, has a T-collar / G-tube Lab results reviewed, low-grade fever, 01/10 Eyes open, does not follow simple commands, no acute events overnight 01/11 no acute events overnight, Waiting for placement 01/12 No acute events overnight. Patient awaiting for placement 01/13. No new issues. Awaiting placement 01/14. No new issues. Awaiting placement. 01/15. No new issues. Awaiting placement. 01/16. No new issues. Patient remain stable. Awaiting placement. Check maintenance labs. 01/17. Routine maintenance labs were ordered and are still pending. Await placement. 01/18. Patient with low-grade fever past 24-48 hrs. WBC within normal limits. Check chest x-ray, urinalysis and consider blood cultures. Continue tracheostomy care, secretion control and airway management. Patient currently with PEG and tube feedings at 60 cc an hour. Nutritional support and aspiration precautions. 01/19. Temperature 100.7 overnight. Continue to monitor closely. Continue tracheostomy care, secretion control and airway management. Patient currently with PEG and tube feedings at 60 cc an hour. Nutritional support and aspiration precautions. 01/20. Continue to monitor closely. Continue tracheostomy care, secretion control and airway management. Patient currently with PEG and tube feedings at 60 cc an hour. Nutritional support and aspiration precautions. 01/21. Afebrile overnight. Continue to monitor closely. Continue tracheostomy care, secretion control and airway management. Patient currently with PEG and tube feedings at 60 cc an hour. Nutritional support and aspiration precautions. 01/22. Continue to monitor closely. Continue tracheostomy care, secretion control and airway management. Patient currently with PEG and tube feedings at 60 cc an hour. Nutritional support and aspiration precautions. 01/23. Continue tracheostomy care, secretion control and airway management. Patient currently with PEG and tube feedings at 60 cc an hour. Nutritional support and aspiration precautions. Will get routine labs tomorrow. 01/24. Labs reviewed. No abnormalities. Continue tracheostomy care, secretion control and airway management. Patient currently with PEG and tube feedings at 60 cc an hour. Nutritional support and aspiration precautions. 01/25. Temp 100.6. More sleepy today. Will get chest xray, blood culture, urinalysis, sputum cultures. Will start on empirical abx. 01/26: Vitals noted, slightly tachycardic. Follow culture work-up, continue supportive care. 01/27: Spiking low-grade temp, negative UA, sputum culture and recent blood cultures also negative. Continue to monitor off antibiotics. Continue supportive care. Pending placement. 01/28: cont to spike low grade temp, negative UA, sputum culture and recent blood cultures also negative. Continue to monitor off antibiotics. will order fpr sinus xry. Continue supportive care. Pending placement. 01/29: Continue to follow clinically, intermittently spiking low-grade temp, all recent culture work is negative, negative UA, normal respiratory jaylan 1 tracheal aspirate. Vitals noted and currently stable. Pending placement 01/30: Clinically unchanged, continue to monitor vitals, continue supportive cares. Pending placement. Discussed plan of care with RN at the bedside. 01/31 - TODATE: cont supportive care, pending placement. monitor vitals carefully. Discussed with family at the bedside. 02/06. Patient afebrile today. Continue trach care. Secretions stable today. Culture data negative so far. Awaiting placement. 02/07. Awaiting placement awaiting family member to evaluate papers. Continue trach care secretions stable. Pending placement 02/09: Intermittent fever, ?drug related, will check cxr and also labs. No new complaints. 02/10: Patient's trach dislodged today. Nevertheless respiratory status is intact attempt to reinsert was unsuccessful will monitor discussed with nursing staff to pay close attention to the patient. Considering that this was not a planned decannulation I will start the patient on continuous pulse ox until full evaluation was done by pulmonary. 02/13/2021 Vital signs stable Unresponsive secondary to anoxic encephalopathy Awaiting placement 02/14/2021 Awaiting placement 02/15/2021 Anoxic encephalopathy Awaiting placement 02/16/2021 Anoxic encephalopathy Awaiting placement 02/17/2021 Anoxic encephalopathy awaiting placement 02/18/2021 Anoxic encephalopathy awaiting placement 02/19/2021 Anoxic encephalopathy awaiting placement 02/20/2021 Anoxic encephalopathy awaiting placement 02/21/2021 Anoxic encephalopathy awaiting placement 02/22/2021 Anoxic encephalopathy awaiting placement 02/23/2021 Anoxic encephalopathy awaiting placement 02/24/2021 Anoxic encephalopathy awaiting placement 02/25/2021 Anoxic encephalopathy waiting for placement 02/26 Awaiting placement 02/27. Awaiting placement 02/28. No change in medical condition. Awaiting placement 03/01. No medical changes noted. Awaiting placement 03/01. No medical changes noted. Awaiting placement 03/02. Had temperature more than 100 Fahrenheit. Ordered labs and chest x-ray. Labs reviewed. No pna and no leukocytosis. Procalcitonin negative. Blood cultures negative so far. Continue to monitor for now 03/03. BC remains negative. Awaiting placement. Hospitalist Physical - Physical exam Narrative exam: VITAL SIGNS: Reviewed. GENERAL: Trach in place HEAD: No signs of head trauma. EYES: Pupils are equal. NECK: No adenopathy, no JVD. CHEST: Diminished breath sounds CARDIAC: normal S1 and S2, without murmurs, gallops, or rubs. ABDOMEN: Soft, non tender and non distended. No rebound or guarding, and no masses palpated. Bowel Sounds normal MUSCULOSKELETAL: No edema NEUROLOGIC EXAM: Not responsive SKIN: No obvious lesions - Constitutional Vitals: Temp Pulse Resp BP Pulse Ox 99.0 F 106 H 16 106/65 98 03/04/21 04:16 03/04/21 09:32 03/04/21 04:16 03/04/21 09:32 03/04/21 04:16 HEART Score - HEART Score Age: < 45 Risk factors: 1-2 risk factors - Critical Actions Critical Actions: >7 pts:50-65% risk of adverse cardiac event. Early invasive measures Results - Labs CBC & Chem 7: 03/04/21 04:46 03/04/21 04:46 Labs: Laboratory Last Values WBC 8.6 K/mm3 (4.5-11.0) 03/04/21 04:46 RBC 5.49 M/mm3 (3.65-5.03) H 03/04/21 04:46 Hgb 13.4 gm/dl (10.1-14.3) 03/04/21 04:46 Hgb Comment See scanned result 10/04/20 Unknown Hct 41.0 % (30.3-42.9) 03/04/21 04:46 MCV 75 fl (79-97) L 03/04/21 04:46 MCH 25 pg (28-32) L 03/04/21 04:46 MCHC 33 % (30-34) 03/04/21 04:46 RDW 15.3 % (13.2-15.2) H 03/04/21 04:46 Plt Count 298 K/mm3 (140-440) 03/04/21 04:46 Lymph % (Auto) 30.9 % (13.4-35.0) 03/04/21 04:46 Ida % (Auto) 9.1 % (0.0-7.3) H 03/04/21 04:46 Eos % (Auto) 2.1 % (0.0-4.3) 03/04/21 04:46 Baso % (Auto) 0.3 % (0.0-1.8) 03/04/21 04:46 Lymph # (Auto) 2.7 K/mm3 (1.2-5.4) 03/04/21 04:46 Ida # (Auto) 0.8 K/mm3 (0.0-0.8) 03/04/21 04:46 Eos # (Auto) 0.2 K/mm3 (0.0-0.4) 03/04/21 04:46 Baso # (Auto) 0.0 K/mm3 (0.0-0.1) 03/04/21 04:46 Add Manual Diff Complete 02/09/21 10:59 Total Counted 100 02/09/21 10:59 Seg Neutrophils % 57.6 % (40.0-70.0) 03/04/21 04:46 Seg Neuts % (Manual) 58.0 % (40.0-70.0) 02/09/21 10:59 Band Neutrophils % 2.0 % 10/15/20 05:50 Lymphocytes % (Manual) 29.0 % (13.4-35.0) 02/09/21 10:59 Reactive Lymphs % (Man) 1.0 % 10/02/20 12:18 Monocytes % (Manual) 13.0 % (0.0-7.3) H 02/09/21 10:59 Eosinophils % (Manual) 1.0 % (0.0-4.3) 10/29/20 07:56 Myelocytes % 2.0 % 10/02/20 13:05 Metamyelocytes % 1.0 % 10/14/20 04:00 Nucleated RBC % Not Reportable 02/09/21 10:59 Seg Neutrophils # 4.9 K/mm3 (1.8-7.7) 03/04/21 04:46 Seg Neutrophils # Man 3.7 K/mm3 (1.8-7.7) 02/09/21 10:59 Band Neutrophils # 0.0 K/mm3 02/09/21 10:59 Lymphocytes # (Manual) 1.8 K/mm3 (1.2-5.4) 02/09/21 10:59 Abs React Lymphs (Man) 0.0 K/mm3 02/09/21 10:59 Monocytes # (Manual) 0.8 K/mm3 (0.0-0.8) 02/09/21 10:59 Eosinophils # (Manual) 0.0 K/mm3 (0.0-0.4) 02/09/21 10:59 Basophils # (Manual) 0.0 K/mm3 (0.0-0.1) 02/09/21 10:59 Metamyelocytes # 0.0 K/mm3 02/09/21 10:59 Myelocytes # 0.0 K/mm3 02/09/21 10:59 Promyelocytes # 0.0 K/mm3 02/09/21 10:59 Blast Cells # 0.0 K/mm3 02/09/21 10:59 WBC Morphology Not Reportable 02/09/21 10:59 Hypersegmented Neuts Not Reportable 02/09/21 10:59 Hyposegmented Neuts Not Reportable 02/09/21 10:59 Hypogranular Neuts Not Reportable 02/09/21 10:59 Smudge Cells Not Reportable 02/09/21 10:59 Toxic Granulation Not Reportable 02/09/21 10:59 Toxic Vacuolation Not Reportable 02/09/21 10:59 Dohle Bodies Not Reportable 02/09/21 10:59 Pelger-Huet Anomaly Not Reportable 02/09/21 10:59 Ester Rods Not Reportable 02/09/21 10:59 Platelet Estimate Consistent w auto 02/09/21 10:59 Clumped Platelets Not Reportable 02/09/21 10:59 Plt Clumps, EDTA Not Reportable 02/09/21 10:59 Large Platelets Few 02/09/21 10:59 Giant Platelets Not Reportable 02/09/21 10:59 Platelet Satelliting Not Reportable 02/09/21 10:59 Plt Morphology Comment Not Reportable 02/09/21 10:59 RBC Morphology Not Reportable 02/09/21 10:59 Dimorphic RBCs Not Reportable 02/09/21 10:59 Polychromasia Not Reportable 02/09/21 10:59 Hypochromasia 1+ 02/09/21 10:59 Poikilocytosis Not Reportable 02/09/21 10:59 Anisocytosis Not Reportable 02/09/21 10:59 Microcytosis Not Reportable 02/09/21 10:59 Macrocytosis Not Reportable 02/09/21 10:59 Spherocytes Not Reportable 02/09/21 10:59 Pappenheimer Bodies Not Reportable 02/09/21 10:59 Sickle Cells Not Reportable 02/09/21 10:59 Target Cells Not Reportable 02/09/21 10:59 Tear Drop Cells Not Reportable 02/09/21 10:59 Ovalocytes Not Reportable 02/09/21 10:59 Stomatocytes Few 10/14/20 04:00 Helmet Cells Not Reportable 02/09/21 10:59 [place] Bodies Not Reportable 02/09/21 10:59 [place] Rings Not Reportable 02/09/21 10:59 [place] Cells Not Reportable 02/09/21 10:59 Bite Cells Not Reportable 02/09/21 10:59 Crenated Cell Not Reportable 02/09/21 10:59 Elliptocytes Not Reportable 02/09/21 10:59 Acanthocytes (Spur) Not Reportable 02/09/21 10:59 Rouleaux Not Reportable 02/09/21 10:59 Hemoglobin C Crystals Not Reportable 02/09/21 10:59 Schistocytes Not Reportable 02/09/21 10:59 Malaria parasites Not Reportable 02/09/21 10:59 Sickle Cell Solubility See scanned result 10/04/20 Unknown Hemoglobin A See scanned result 10/04/20 Unknown Hemoglobin A2 See scanned result 10/04/20 Unknown Hemoglobin A2 Prime See scanned result 10/04/20 Unknown Hemoglobin C See scanned result 10/04/20 Unknown Hemoglobin D See scanned result 10/04/20 Unknown Hemoglobin E See scanned result 10/04/20 Unknown Hgb F Diffential Stain See scanned result 10/04/20 Unknown Hemoglobin F Quant See scanned result 10/04/20 Unknown Hemoglobin G See scanned result 10/04/20 Unknown Hemoglobin S See scanned result 10/04/20 Unknown Hemoglobin [place] See scanned result 10/04/20 Unknown Hemoglobin [place] See scanned result 10/04/20 Unknown Hemoglobin Analilia See scanned result 10/04/20 Unknown Variant Hemoglobin See scanned result 10/04/20 Unknown Abnorm Hgb IEF Confirm See scanned result 10/04/20 Unknown Hemoglobin Interpret See scanned result 10/04/20 Unknown Hemoglobinopathy Note See scanned result 10/04/20 Unknown Sharad Bodies Not Reportable 02/09/21 10:59 Hem Pathologist Commnt No 02/09/21 10:59 PT 13.6 Sec. (12.2-14.9) 10/21/20 13:54 INR 1.06 (0.87-1.13) 10/21/20 13:54 APTT 31.6 Sec. (24.2-36.6) 10/03/20 00:40 Fibrinogen 336 mg/dl (211-480) 10/04/20 10:00 D-Dimer 1974.47 ng/mlDDU (0-234) H 11/11/20 13:50 ABG pH 7.459 pH Units (7.350-7.450) H 10/26/20 10:30 POC ABG pCO2 20.7 mmHg (32.0-48.0) L 10/13/20 07:18 ABG pCO2 32.4 mm Hg 10/26/20 10:30 POC ABG pO2 137.9 mmHg (83-108) H 10/13/20 07:18 ABG pO2 112.2 mm Hg (80.0-90.0) H 10/26/20 10:30 POC ABG HCO3 14.8 10/13/20 07:18 ABG HCO3 22.5 mmol/L (20.0-26.0) 10/26/20 10:30 ABG O2 Saturation 98.2 % (95.0-99.0) 10/26/20 10:30 ABG O2 Content 18.5 (0.0-44) 10/26/20 10:30 POC ABG Base Excess -6.9 10/13/20 07:18 ABG Base Excess -0.6 mmol/L (-2.0-3.0) 10/26/20 10:30 ABG Hemoglobin 13.5 gm/dl (12.0-16.0) 10/26/20 10:30 ABG Oxyhemoglobin 98.3 (94-98) H 10/13/20 07:18 ABG Carboxyhemoglobin 1.3 % (0.0-5.0) 10/26/20 10:30 ABG Methemoglobin 0.5 % (0.0-1.5) 10/26/20 10:30 ABG Sodium 135.9 mmol/L (136.0-145.0) L 10/13/20 07:18 ABG Potassium 3.7 mmol/L (3.40-4.50) 10/13/20 07:18 ABG Chloride 111.0 mmol/L (98-107) H 10/13/20 07:18 ABG Glucose 109 mg/dL (65-95) H 10/13/20 07:18 VBG pH 6.949 (7.320-7.420) L* 10/02/20 Unknown Oxyhemoglobin 96.5 % (95.0-99.0) 10/26/20 10:30 Carboxyhemoglobin 0.3 (0.5-1.5) L 10/13/20 07:18 FiO2 25 % 10/26/20 10:30 Sodium 144 mmol/L (137-145) 03/04/21 04:46 Potassium 4.2 mmol/L (3.6-5.0) 03/04/21 04:46 Chloride 105.2 mmol/L (98-107) 03/04/21 04:46 Carbon Dioxide 26 mmol/L (22-30) 03/04/21 04:46 Anion Gap 17 mmol/L 03/04/21 04:46 BUN 15 mg/dL (7-17) 03/04/21 04:46 Creatinine 0.5 mg/dL (0.6-1.2) L 03/04/21 04:46 Estimated GFR > 60 ml/min 03/04/21 04:46 BUN/Creatinine Ratio 30 % 03/04/21 04:46 Glucose 96 mg/dL (65-100) 03/04/21 04:46 POC Glucose 99 mg/dL (70-105) 03/04/21 05:46 Random Insulin 43.2 uIU/mL (<=19.6) H 11/02/20 19:19 Proinsulin See scanned result 11/02/20 19:19 C-Peptide 6.23 ng/mL (0.80-3.85) H 11/02/20 19:19 Lactic Acid 1.90 mmol/L (0.7-2.0) 10/04/20 22:00 Uric Acid 7.5 mg/dL (3.5-7.6) 10/02/20 13:05 Calcium 10.0 mg/dL (8.4-10.2) 03/04/21 04:46 Ionized Calcium 4.4 mg/dL (4.8-5.6) L 10/07/20 21:00 Phosphorus 4.60 mg/dL (2.5-4.5) H 11/13/20 10:05 Magnesium 2.10 mg/dL (1.7-2.3) 11/13/20 10:05 Total Bilirubin 0.80 mg/dL (0.1-1.2) 03/04/21 04:46 AST 51 units/L (5-40) H 03/04/21 04:46 ALT 53 units/L (7-56) 03/04/21 04:46 Alkaline Phosphatase 117 units/L (35-129) 03/04/21 04:46 Lactate Dehydrogenase 769 units/L (91-180) H 10/02/20 13:05 C-Reactive Protein 0.70 mg/dL (0.00-1.30) 11/11/20 13:50 NT-Pro-B Natriuret Pep 2788 pg/mL (0-450) H 10/04/20 10:00 Total Protein 8.4 g/dL (6.3-8.2) H 03/04/21 04:46 Albumin 4.2 g/dL (3.9-5) 03/04/21 04:46 Albumin/Globulin Ratio 1.0 % 03/04/21 04:46 Procalcitonin < 0.05 ng/mL (<0.15) 03/02/21 02:30 Arterial Blood Glucose 109 mg/dL (65-95) H 10/13/20 07:18 Arterial Blood Ionized Calcium 4.6 mg/dL (4.6-5.3) 10/13/20 07:18 Urine Color Yellow (Yellow) 01/25/21 09:51 Urine Turbidity Cloudy (Clear) 01/25/21 09:51 Urine pH 7.0 (5.0-7.0) 01/25/21 09:51 Ur Specific [place] 1.011 (1.003-1.030) 01/25/21 09:51 Urine Protein <15 mg/dl mg/dL (Negative) 01/25/21 09:51 Urine Glucose (UA) Neg mg/dL (Negative) 01/25/21 09:51 Urine Ketones Neg mg/dL (Negative) 01/25/21 09:51 Urine Blood Neg (Negative) 01/25/21 09:51 Urine Nitrite Neg (Negative) 01/25/21 09:51 Urine Bilirubin Neg (Negative) 01/25/21 09:51 Urine Urobilinogen < 2.0 mg/dL (<2.0) 01/25/21 09:51 Ur Leukocyte Esterase Neg (Negative) 01/25/21 09:51 Urine WBC (Auto) 6.0 /HPF (0.0-6.0) 01/25/21 09:51 Urine RBC (Auto) 3.0 /HPF (0.0-6.0) 01/25/21 09:51 U Epithel Cells (Auto) < 1.0 /HPF (0-13.0) 01/25/21 09:51 Urine Bacteria (Auto) 1+ /HPF (Negative) 01/18/21 08:47 Urine WBC Clumps 3+ /HPF 11/11/20 13:50 Calcium Oxalate Crystal Few 11/11/20 13:50 Urine Mucus Few /HPF 01/25/21 09:51 Urine Yeast (Budding) 2+ /HPF 01/25/21 09:51 Vancomycin Trough 12.6 ug/mL (5.0-20.0) 10/21/20 13:54 Random Vancomycin 10.7 ug/mL (0-40.0) 10/16/20 13:09 Phenytoin 5.7 ug/mL (10.0-20.0) L 10/13/20 07:00 C. difficile Tox (PCR) Positive (Negative) 10/16/20 10:22 Coronavirus (PCR) Negative (Negative) 10/08/20 14:15 Blood Type O POSITIVE 10/02/20 12:50 Antibody Screen Negative 12/18/20 12:50 Crossmatch See Detail 10/02/20 12:50 Microbiology: Microbiology 03/02/21 04:40 Peripheral/Venous Blood Culture - Preliminary NO GROWTH AFTER 48 HOURS 03/01/21 23:43 Peripheral/Venous Blood Culture - Preliminary NO GROWTH AFTER 48 HOURS - Diagnostic Impressions Diagnostic Impressions: Echocardiogram 10/03/20 13:42 Transthoracic Echocardiogram Indication: S/P Cardiac Arrest R/O Cardiomyopathy BP: 133/71 Conclusions *Global left ventricular systolic function is normal. *The estimated ejection fraction is 60-65%. *There is trace of mitral regurgitation. *The right 0heart chambers are both slightly dilated. *There is mild tricuspid regurgitation. *There is mild-moderate pulmonary hypertension. *The right ventricular systolic pressure is calculated at 44 mmHg. *The study quality is technically difficult. Findings Procedure Info: The study quality is technically difficult. The study is technically limited due to patient body habitus. The study was technically limited due to the patient's inability to lay in the left lateral decubitus position. Left Ventricle: The left ventricular chamber size is normal. There is no left ventricular hypertrophy. Global left ventricular systolic function is normal. The estimated ejection fraction is 60-65%. Left Atrium: The left atrial chamber size is normal. Right Ventricle: The right ventricle is slightly dilated. Right Atrium: The right atrium is mildly dilated. Aortic Valve: The aortic valve leaflets are mildly thickened. There is no evidence of aortic regurgitation. There is no evidence of aortic stenosis. Mitral Valve: The mitral valve leaflets are mildly thickened. There is trace of mitral regurgitation. There is no evidence of mitral stenosis. Tricuspid Valve: There is mild tricuspid regurgitation. The right ventricular systolic pressure is calculated at 44 mmHg. There is evidence of mild pulmonary hypertension. Pulmonic Valve: There is trace pulmonic regurgitation. Pericardium: There is no pericardial effusion. Aorta: There is no dilatation of the ascending aorta. There is no dilatation of the aortic root. Venous: The inferior vena cava is dilated. Measurements Chambers 2D Name Value Normal Range IVSd (2D) 1 cm (0.6 - 1.1) LVPWd (2D) 1.01 cm (0.6 - 1.1) LVIDd (2D) 4.58 cm (3.7 - 5.6) LVIDs (2D) 3.17 cm (2 - 3.8) LV FS (2D) 30.93 % - EF Teichholz (2D) 58.66 % - Ao root diameter (2D) 2.94 cm (2 - 3.7) Volumes/Mass Name Value Normal Range LA ESV SP 4CH (A/L) 72.82 ml - LA ESV SP 2CH (A/L) 66.86 ml - LA ESV BP (A/L) 74.49 ml - LA ESV SP 4CH (MOD) 71.03 ml - LA ESV SP 2CH (MOD) 64.3 ml - LV EDV SP 4CH (MOD) 98.82 ml - LV ESV SP 4CH (MOD) 24.8 ml - EF SP 4CH (MOD) 74.9 % - LV EDV SP 2CH (MOD) 86.1 ml - LV ESV SP 2CH (MOD) 36.93 ml - EF SP 2CH (MOD) 57.11 % - LV EDV BP 94.4 ml - LV ESV BP 32.66 ml - BP EF (MOD) 65.4 % - Diastolic/Systolic Function Name Value Normal Range MV E-wave Vmax 1.04 m/sec - MV deceleration time 160.46 msec - MV A-wave Vmax 0.92 m/sec - MV E:A ratio 1.14 ratio - Aortic Valve Name Value Normal Range AV Vmax 2.12 m/sec - AV VTI 22.37 cm - AV peak gradient 17.95 mmHg - AV mean gradient 7.29 mmHg - LVOT diameter 2.01 cm - LVOT Vmax 1.8 m/sec - LVOT VTI 27.17 cm - LVOT peak gradient 12.91 mmHg - LVOT mean gradient 6.83 mmHg - SV LVOT 86.42 ml - ANITA (continuity Vmax) 2.7 cm2 - ANITA (continuity VTI) 3.86 cm2 - Ascending Ao 3.18 cm - Tricuspid Valve Name Value Normal Range TV E-wave Vmax 0.88 m/sec - TR Vmax 3.01 m/sec - TR peak gradient 36.27 mmHg - RAP 8 mmHg - RVSP 44 mmHg - IVC diameter 2.65 cm (1.2 - 2.3) Pulmonic Valve/Qp:Qs Name Value Normal Range PV Vmax 1.22 m/sec - PV peak gradient 5.91 mmHg - RVOT Vmax 0.87 m/sec - RVOT VTI 13.32 cm - RVOT peak gradient 3 mmHg - PV acceleration time 110.37 msec - [place]/IV: Voiding Method Incontinent IV Catheter Type [Right Foot] INT / Saline Lock IV Catheter Type [Left Forearm Peripheral IV ] IV Catheter Type [Left Wrist] INT / Saline Lock IV Catheter Type [Right Hand] INT / Saline Lock IV Catheter Type [Right INT / Saline Lock Antecubital] IV Catheter Type [Right Upper Mid-line arm] IV Catheter Type [Left Triple Lumen Cath Internal Jugular] IV Catheter Type [Left Hand] Peripheral IV IV Catheter Type [Left Peripheral IV Antecubital] Active Medications - Current Medications Current Medications: Generic Name Dose Route Start Last Admin Trade Name Freq PRN Reason Stop Dose Admin Acetaminophen 650 mg 10/05/20 16:34 03/03/21 17:30 Acetaminophen 325 Mg/10.15 Ml Oral Liqd Unit Dose FEEDTUBE 650 mg Q6H PRN Administration Non Cardiac Pain or Temp>100.5 Albuterol 2.5 mg 11/05/20 13:03 11/06/20 13:04 Albuterol 2.5 Mg/3 Ml Nebu IH 2.5 mg Q4HRT PRN Administration Shortness Of Breath Alprazolam 0.25 mg 01/20/21 13:33 03/03/21 17:30 Alprazolam 0.25 Mg Tab PO 0.25 mg Q8H PRN Administration Anxiety Lipase/Protease/Amylase 1 each 10/05/20 11:09 Lipase 10,500/Protease 25,000/Amylase 43,750 (Units) Dr Barakat FEEDTUBE PRN PRN For Clogged Feeding Tube Enoxaparin Sodium 40 mg 10/22/20 10:00 03/04/21 09:32 Enoxaparin 40 Mg/0.4 Ml Inj SUB-Q 40 mg DAILY ERINN Administration Protocol Famotidine 20 mg 10/07/20 10:00 03/04/21 09:32 Famotidine 20 Mg Tab PO 20 mg BID ERINN Administration Hydrophilic Ointment 1 applic 01/03/21 13:00 02/16/21 09:56 Lip Therapy Vaseline TP 1 applic DIRECT PRN Administration Dry Lips Dextrose 1,000 mls @ 30 mls/hr 01/03/21 12:00 02/11/21 18:44 D5w IV 30 mls/hr DIRECT ERINN Administration Metoprolol Tartrate 50 mg 02/02/21 16:01 03/04/21 09:32 Metoprolol Tartrate 25 Mg Tab PO 50 mg BID ERINN Administration Morphine Sulfate 2 mg 01/20/21 13:33 Morphine 2 Mg/1 Ml Inj IV Q4H PRN Pain, Moderate (4-6) Ondansetron HCl 4 mg 02/10/21 11:38 02/10/21 13:18 Ondansetron 4 Mg/2 Ml Inj IV 4 mg Q4H PRN Administration Nausea And Vomiting Simple Syrup 15 ml 10/05/20 11:09 Simple Syrup 15 Ml FEEDTUBE PRN PRN Hypoglycemia Simple Syrup 30 ml 10/05/20 11:09 Simple Syrup 15 Ml FEEDTUBE PRN PRN Hypoglycemia Sodium Bicarbonate 325 mg 10/05/20 11:09 12/16/20 08:19 Sodium Bicarbonate 325 Mg Tab FEEDTUBE 325 mg PRN PRN Administration For Clogged Feeding Tube Nutrition/Malnutrition Assess - Dietary Evaluation Nutrition/Malnutrition Findings: Nutrition Notes Start: 10/04/20 11:13 Freq: Status: Active Protocol: Document 03/03/21 10:59 AL (Rec: 03/03/21 11:20 AL [id number]) Co-Sign 03/03/21 10:59 LP Nutrition Notes Initial or Follow up Reassessment Other Pertinent Diagnosis s/p cardiac arrest x 2, anoxic brain injury Current Diet Promote at 65ml/hr Labs/Tests Reviewed Pertinent Medications Reviewed Height 5 ft 8 in Weight 97.5 kg [place] Body Weight (kg) 63.63 BMI 32.6 Weight change and time frame wt change noted 7.7% (7 kg). Likely due to fluid Weight Status Obese Subjective/Other Information F/U for stable TF and wound status. Per 02/12, pt thigh wound resolved/healed. TF was running at goal rate. Percent of energy/protein needs met: 100%/100% Burn Absent Trauma Absent GI Symptoms None Difficulty In Swallowing,Chewing Food Allergy Yes Current % PO Negligible Minimum of two criteria Yes Interpretation of Weight Loss (severe) >2% in 1 week Fluid Accumulation Moderate to Severe (severe) #2 Nutrition Diagnosis Malnutrition Diagnosis Progress(for reassessment Continues documentation) #1 Nutrition Diagnosis Inadequate oral intake Diagnosis Progress(for reassessment Continues documentation) Is patient on ventilator? No Is Patient Ambulatory and/or Out of Bed No REE-([place]-St. Jeor-confined to bed) 2081.108 Kcal/Kg value to use for calculation 16 Approximate Energy Requirements Using 1560 kcal/Kg Calculation Used for Recommendations Kcal/kg Additional Notes PRO needs: 64-80g (.8-1.0 g/kg AdBW 81kg) Fluid needs: 1 mL/kcal or per MD Nutrition Intervention Change Diet Order: Continue Nutrition Support: Promote at 65 mL/hr Flush 100 ml q4h Kcal 1,560 Protein (gm) 98 Fluid (mL) 1,309 Goal #1 Change TF Goal #2 TF tolerance Goal #3 TF to meet at least 75% estimated energy and protein needs. Anticipated Discharge Needs: Promote at 65 ml/hr Flush 100 ml q4h Follow-Up By: 03/05/21 Additional Comments F/U for TF change and tolerance.
[2021-03-05] MEDS: FAMOTIDINE 20 MG TAB PO SCH ×2 (11:16→21:13)
[2021-03-05] MEDS: ENOXAPARIN 40 MG/0.4 ML INJ SUB-Q SCH (11:16)
[2021-03-05] MEDS: METOPROLOL TARTRATE 25 MG TAB PO SCH ×2 (11:21→21:13)
[2021-03-05] MEDS: ALPRAZolam 0.25 MG TAB PO PRN (18:08)
[2021-03-06] MEDS: METOPROLOL TARTRATE 25 MG TAB PO SCH ×2 (11:26→22:00)
[2021-03-06] MEDS: FAMOTIDINE 20 MG TAB PO SCH ×2 (11:26→22:00)
[2021-03-06] MEDS: ENOXAPARIN 40 MG/0.4 ML INJ SUB-Q SCH (11:26)
--- NOTE | 2021-03-07 09:15 | Progress Note ---
Assessment and Plan Assessment and plan: --DIC (disseminated intravascular coagulation) vs HELLP syndrome Resolved --Possible Eclampsia/HELLP Syndrome Resolved --s/p Cardiac arrest x2 on admission and on 10/07 ACLS protocol followed by revival Echo showed preserved Ef --Anoxic brain injury, Developed following cardiac arrest, continue supportive care --Shock-resolved now awaiting placement s/p pressor support --ADOLPH-resolved Stable --Sepsis 2/2 UTI Resolved --Hypernatremia, resolved, cont free water with TF Resolved --DVT prophylaxis - lovenox Disposition - Pending placement History Interval history: 1 y/o female patient with Eclampsia/help syndrome, s/p emergent section with DIC, hemorrhage, supracervical abdominal hysterectomy, acute respiratory failure , tracheostomy on T-piece with morbid obesity, s/p cardiac arrest 12/08/2019 status post CPR per ACLS, acute hypoxic brain injury Acute kidney injury improved, severe shock requiring pressors, DIC septic shock improved, history of C. difficile colitis on vancomycin. Tracheostomy on T-piece, continues to require 5 L of oxygen. Brief history; 30 year old -[place] female CHE 10/25/20 at 36w5d who presents with seizures in triage on 10/02/20. Pt was not able to provide history but per pt's , she presented to the hospital to return a 24 hour urine specimen for analysis. She then suddenly reported that she did not feel good. She was taken to labor and delivery and shortly after arrival, she began seizing. During this time, a code met was called because the patient became hypoxic. She was then noted to be without a pulse. Chest compressions were started immediately, and the patient was emergently taken to the operating room for delivery of the fetus. Off note, This patient has had care at [facility] with comanagement by [facility] since 11 wks complicated by ADHD, morbid obesity, generalized anxiety disorder, panic attacks, chronic narcotic use, fibromyalgia, GERD, Irritable Bowel Syndrome, Migraines, h/o endometrial ablation and ovarian vein embolization, genital herpes, insomnia, LGA fetus, nausea and vomiting, polyhydramnios, quad screen positive for Down's Syndrome, and previous x 3. She is GBS negative. , Patient tracheostomy on ventilatory support, unable to wean, continue supportive care poor prognosis 11:30: Pt brought to L&D triage for evaluation of possible labor. Pt accompanied by her spouse. Pt spouse poor historian; unable to obtain history- allergies at this time. Pt taken from registration to triage area via WC. Pt unresponsive, a ctively seizing with snorous respirations. supervisor coal handling, Kassy, called and requesting assistance. 11:35: Multiple staff at bedside. Pt 02 sat 67% on nonrebreather, unable to read BP . Yifan Theodore CRNA, at bedside for intubation and assistance with IV insertion. INT attempt by multiple RNs unsuccessful at this time. 11:42: Pt being bagged by KORIN, 02% 79%. No pulse palpated, compressions on at this time; bharati young called and Dr. Newberry preparing OR for emergent c/s. 11:44: Continued compressions on stretcher while transporting pt to OR 1. Pt being bagged with jaw thrust manuever in place by KORIN Stringer student. 11:45: Arrival to OR 1. Dr. Newberry and Dr. Portillo present for emergent c/s. Code team arrived for continued care. patient revived and c/s done Patient has been bleeding from C/s site followed by supracervical hysterectomy for severe bleeding, Patient transfused multiple units of PRBC, Patient in DIC. Patient transferred to the ICU Hospital course; 10/03. Patient seen and examined at bedside this morning. Patient is nonresponsive and mechanically ventilated. On pressors. Labs reviewed-has leukocytosis, anemia, thrombocytopenia, ADOLPH and lactic acidosis. Started on IV antibiotics to cover possible sepsis secondary to DIC. Hematology oncology recommendations appreciated-needs additional cryoprecipitate and FFP. Monitor D-dimer, fibrinogen and frequent labs. Nephrology consulted for lactic acidosis and ADOLPH. 10/04. Remains mechanically ventilated. [place] antibiotics. Labs shows improved acidosis - lactic acid 3.5. Hb drop noted. Getting transfused 2 units PRBCs. Platelet count is ~40k. Continue to monitor labs closely. Critical care team on board. 10/05; xray reviewed, concerning for multifocal infilrate, likely underlying Pneumonia, will add ID consult to assist with management of this critically ill patient, start tube feed, closely monitor renal system 10/06: Resumed care, remains on mechanical ventilation. No active bleeding, H&H stable. Continue to monitor CBC and BMP. Continue IV antibiotic for underlying pneumonia. Follow critical care and ID recommendation. 10/07: Remains on mechanical ventilation. No active bleeding, H&H stable. Cri tical care following, wean off ventilation as tolerated. 10/08: Patient had another cardiac arrest last night. Remains on mechanical ventilation, update family. Continue supportive care -poor prognosis 10/09: Called patient mother and discussed about patient care and management. Answered all question to best of my knowledge and family satisfaction. Patient remains on mechanical ventilation, cardiac arrest x2 so far. Critically sick, poor prognosis 10/10: remains on mechanical ventilation. h/h stable, no active bleeding. monitor CBC/BMP 10/11: WBC trended up with diarrhea, started on vancomycin po. remains on MV, off pressor, tolerating TF 10/12: remains on MV, off pressor, tolerating TF. called family for update but unable to reach, could not leave message as it was full. cont supportive care, wean off vent as tolerated. 10/13/2020; patient is on mechanical ventilation, tolerating tube feeding. Patient has labored breathing. Neuro was consulted and recommend MRI. Patient is on Precedex. Rectal tube in place. 10/14/2020; patient is on mechanical ventilation, Precedex. Patient had fever and blood culture ordered. Patient is on IV vancomycin per ID recommendation. Neuro consulted and recommend MRI. Continue to monitor. Prognosis is guarded. 10/15/2020; patient is on mechanical ventilation, Precedex. Patient had fever and blood culture ordered. Patient is on IV vancomycin per ID recommendation. Neuro consulted and recommend MRI. Continue to monitor. Prognosis is guarded. 12: Remains with C.DIFF and Bactermia, Poor prognosis. No purposeful movement. MRI and EEG discussed with Intensvisit, Continue aggressive BP control. 3: Blood pressure better controlled MRI done 10/15 shows mild improvement in edema. We will continue to monitor mother was at bedside yesterday. Nursing documentation trach and PEG discussed with the mother including goals of care. She is still in denial about the gravity of her daughters her condition which is understandable considering her age. Continue aggressive management at this time. Await for bacteremia to clear by ID before placing PICC line. 10/19: Patient for possible PEG and Trach, ID following, repeat cultures remain negative. Poor prognosis 10/20: Pt noted to DVT and SVT in the RUE, Vascular consult and will also obtain Hematology for possible considering changing in Anticoagulation. CONTINUE TO M ONITOR H/H and PLT. Family updated by [employer]. Heparin gtt started. Will check CBC and BMP 10/21: Continue supporive care, Diarrhea now resolving, But still with persistent Fever, May need repeat CT/AP per ID, still with profused Encephalopathy 10/22: Continue supportive care, weaning, awaiting repeat Imaging. FOLLOW Fever curve. Enoxparin restarted 10/23: Continue supportive care, wean as tolerated. 10/24; Started on CPAP trial, discussed with pulmonary, still with diarrhea. 10/25: Patients seen and examined, no clinical changes, still with diarrhea. ?meaningful recovery. 10/26: Clinically unchanged, continue CPAP trial, Will discuss with Neurology about re-evaluation, ?Need for repeat CT head. ?PRESS considering initial elevated BP, now stable. 10/27; tracheostomy on vent, weaning trials, vital signs noted, poor prognosis 10/28; unable to wean, tracheostomy on vent. Sepsis. Continue current management. Consults and recommendations noted and appreciated 10/30/2020;Patient on T-piece 5 L of oxygen not in acute distress, noncommunicative 11/02/2020; patient on T-piece 5 L of oxygen 11/03/2020; patient's fever slightly improved low-grade, continue current management, remains on T-piece with 5 L of oxygen 11/04/2020; T-max last 24 hours 100.3 F, new cultures negative to date, monitor off antibiotics Patient is off Levophed, blood pressures reasonable level, tracheostomy on T- piece 3 to 5 L nasal cannula oxygen 11/05/2020; tracheostomy on T-piece patient remains on 5 L of nasal cannula oxygen, unresponsive severe hypoxic brain injury I called patient's mother Ms. Pamela Bassett as well as patient's spouse Mr. Danilo Dimas at [phone] unable to reach them Left voicemail on Ms. Pamela Bassettz phone and encouraged him to call back 11/06/2020; I tried to call again today Ms. Pamela Bassett to discuss patient's condition and treatment plan and update consultants recommendations and patient's prognosis., unable to reach her 11/07/20 Will try LTAC/Hospice 11/08/20 Same condition 11/09/2020 Same condition 11/10/2020; family conference was held by case management yesterday 11/09/2020, family decided and agreed for SNF placement 11/11/2020; patient seen and examined, clinically no change tracheostomy on 5 L of nasal cannula oxygen, hemodynamically and clinically stable for discharge To LTAC versus SNF, DC planning per case management 11/12/2020; clinically no change, continue current management, DC planning per case management possible SNF placement 11/13/2020; patient is receiving herpes flareup treatment per ID 11/14/2020; clinically no change, awaiting SNF placement 11/15/2020; clinically no change, tracheostomy on T-piece on 5 L oxygen, awaiting placement 11/16/2020; patient awaiting placement 11/18/2020; abdominal CT scan negative for insulinoma or pancreatic tumor ,clinically no change Awaiting SNF placement 11/19/2020; remains on 4 L of oxygen tracheostomy via T-piece, awaiting SNF placement 11/20/2020 Awaiting SNF placement 11/21/2020 Waiting for SNF placement 11/22/2020 Waiting for placement 11/23/2020 Waiting for placement 11/24/2020 through 12/24/2020 Patient waiting for placement 11/27/2020; patient remains hypoglycemic on D10 W IV fluids, CT abdomen negative for insulinoma Remains stable awaiting SNF placement, tracheostomy on 5 L oxygen via T-piece 11/28/2020; awaiting SNF placement 11/29/2020; patient remains unresponsive, tracheostomy on T-piece, on 4 to 5 L of oxygen Wean as tolerated, DC planning per case management possible SNF placement 11/30/2020; awaiting SNF placement 12/02/2020; awaiting placement, stable for discharge 12/03/2020; clinically no change, awaiting placement, tracheostomy on T-piece, anoxic brain injury 12/04/2020 Patient has anoxic encephalopathy with anoxic brain brain injury Awaiting placement 12/05/2020; anoxic brain injury, awaiting placement. 12/06/20; anoxic brain injury. Awaiting placement. 12/07/2020; anoxic brain injury, awaiting placement. 12/09/2020; anoxic brain injury, awaiting placement. 12/10/2020; patient had episodes of fever overnight. CBC, BMP, blood culture, UA and chest x-ray ordered, will follow and manage accordingly. Urinalysis is suggestive of UTI and I put the patient on ceftriaxone, order urine culture. Chest x-ray is normal. 12/11/2020; patient is on ceftriaxone day 2 for UTI. We will continue to follow urine culture. 12/12/2020. Day #3 of Rocephin for UTI. We will continue for 2 more days while she is here. Present UTI. 12/13/2020. Day #4 of Rocephin for UTI. Patient remains on 50% with tracheostomy. Remains unresponsive with evidence of anoxic encephalopathy unable to make needs known. 12/14/2020. Day #5 of Rocephin for UTI completed today. Remains encephalopathic unable to make needs known. Remains on 50% unable to decrease oxygen via tracheostomy. Overall prognosis remains extremely poor. 12/15: Continue to monitor. Stop and monitor antibiotics at this time. Continue to wean oxygen as tolerated. Wean oxygen as tolerated. Case management working on placement. 12/16: Continue supportive care aspiration precautions. Awaiting placement discussion. Monitor fever curve. Prognosis remains poor no evidence of neurological recovery as of today 12/17: Continue supportive care, check labs and chest xray. Still monitor off antibiotics. Monitor Sodium level 12/18: Patient remains with intermittent low grade fever, reviewed EEG from September again, consistent for Ischemic Hypoxic Encephalopathy, patient with decorticating posturing type presentation. Will discuss with sample grader to optimize diet so we can discontinue D5. CXR with no abnormality. Discussed extensively with the nursing staff at bedside CXR IMPRESSION: 1. No acute findings. 12/19: No clinical change 12/20: No clinical change, now off abx, monitor, discussed her medications with our pharmacist I believe that her posture and rigidity is likely from underlying anoxic encephalopathy. Continue to monitor and await placement decision. Continue aggressive suctioning. Plan discussed in detail with the nursing staff 12/21: Continue supportive care. Will give 500 cc bolus of fluid today to replace insensible losses. Tachycardia appears to be improving. Blood pressure precludes adjusting cardiac meds. Still awaiting placement from case management. Plan discussed in detail with the nursing staff 12/22. Continue support supportive care. Tracheostomy and PEG in place. Remains nonresponsive. Awaiting placement. 12/23. Continue support supportive care. Tracheostomy and PEG in place. Remains nonresponsive. Awaiting placement. Remains tachycardic. Decrease dose of lasix. Will try low dose metoprolol. Monitor BP closely 12/24. Continue support supportive care. Tracheostomy and PEG in place. Remains nonresponsive. Awaiting placement. Heart rate slightly better. Continue to monitor BP closely 12/25. Continue support supportive care. Tracheostomy and PEG in place. Remains nonresponsive. Awaiting placement. 12/26. Continue support supportive care. Tracheostomy and PEG in place. Remains nonresponsive. Awaiting placement 12/27. Continue support supportive care. Tracheostomy and PEG in place. Remains nonresponsive. Awaiting placement 12/28. Had fever yesterday. Blood culture drawn. UA - UTI - started on antibiotics. Now tracheal aspirate is growing GN rods. 12/29: Continue IV antibiotics, continue supportive care. Since admission patient has shown minimal or no chance of neurological recovery. Need 24/7 assistance. Currently on trach and PEG, nonverbal. Waiting on SNF placement. Discussed with business case analyst today. 12/30: Continue IV antibiotics for UTI, continue supportive care. Pending placement 12/31: continue supportive care. continue supportive care. Pending placement 01/01: continue supportive care. Pending placement. cont Iv abx for UTI till 01/04 01/02: Continue supportive care, pending placement. Sodium level slightly elevated, will start hypotonic fluid. Continue antibiotics till 01/04 01/03; cont hypotonic fluid, increase free water with TF for hypernatremia, follow BMP. cont supportive care. pending placement. cont cefepime. recx blood 01/04: resolved hyponatremia, cont supportive care, pending placement. Last day of supplement today. 01/05: Continue supportive care, pending placement. Monitor H&H and fever curve off antibiotic. 01/06; monitor off abx, suction as needed, Continue supportive care, pending placement. 01/07: Discharge pending on placement, vitals stable. Continue supportive care 01/08: Discharge pending on placement, vitals stable. Continue supportive care. stop lasix, increase metoprolol to 25mg BID for ST. 01/09 patient resting with eyes closed. Opens eyes to tactile stimulus, has a blink reflex, does not follow simple commands, has a T-collar / G-tube Lab results reviewed, low-grade fever, 01/10 Eyes open, does not follow simple commands, no acute events overnight 01/11 no acute events overnight, Waiting for placement 01/12 No acute events overnight. Patient awaiting for placement 01/13. No new issues. Awaiting placement 01/14. No new issues. Awaiting placement. 01/15. No new issues. Awaiting placement. 01/16. No new issues. Patient remain stable. Awaiting placement. Check maintenance labs. 01/17. Routine maintenance labs were ordered and are still pending. Await placement. 01/18. Patient with low-grade fever past 24-48 hrs. WBC within normal limits. Check chest x-ray, urinalysis and consider blood cultures. Continue tracheostomy care, secretion control and airway management. Patient currently with PEG and tube feedings at 60 cc an hour. Nutritional support and aspiration precautions. 01/19. Temperature 100.7 overnight. Continue to monitor closely. Continue tracheostomy care, secretion control and airway management. Patient currently with PEG and tube feedings at 60 cc an hour. Nutritional support and aspiration precautions. 01/20. Continue to monitor closely. Continue tracheostomy care, secretion control and airway management. Patient currently with PEG and tube feedings at 60 cc an hour. Nutritional support and aspiration precautions. 01/21. Afebrile overnight. Continue to monitor closely. Continue tracheostomy care, secretion control and airway management. Patient currently with PEG and tube feedings at 60 cc an hour. Nutritional support and aspiration precautions. 01/22. Continue to monitor closely. Continue tracheostomy care, secretion control and airway management. Patient currently with PEG and tube feedings at 60 cc an hour. Nutritional support and aspiration precautions. 01/23. Continue tracheostomy care, secretion control and airway management. Patient currently with PEG and tube feedings at 60 cc an hour. Nutritional support and aspiration precautions. Will get routine labs tomorrow. 01/24. Labs reviewed. No abnormalities. Continue tracheostomy care, secretion control and airway management. Patient currently with PEG and tube feedings at 60 cc an hour. Nutritional support and aspiration precautions. 01/25. Temp 100.6. More sleepy today. Will get chest xray, blood culture, urinalysis, sputum cultures. Will start on empirical abx. 01/26: Vitals noted, slightly tachycardic. Follow culture work-up, continue supportive care. 01/27: Spiking low-grade temp, negative UA, sputum culture and recent blood cultures also negative. Continue to monitor off antibiotics. Continue supportive care. Pending placement. 01/28: cont to spike low grade temp, negative UA, sputum culture and recent blood cultures also negative. Continue to monitor off antibiotics. will order fpr sinus xry. Continue supportive care. Pending placement. 01/29: Continue to follow clinically, intermittently spiking low-grade temp, all recent culture work is negative, negative UA, normal respiratory jaylan 1 tracheal aspirate. Vitals noted and currently stable. Pending placement 01/30: Clinically unchanged, continue to monitor vitals, continue supportive cares. Pending placement. Discussed plan of care with RN at the bedside. 01/31 - TODATE: cont supportive care, pending placement. monitor vitals carefully. Discussed with family at the bedside. 02/06. Patient afebrile today. Continue trach care. Secretions stable today. Culture data negative so far. Awaiting placement. 02/07. Awaiting placement awaiting family member to evaluate papers. Continue trach care secretions stable. Pending placement 02/09: Intermittent fever, ?drug related, will check cxr and also labs. No new complaints. 02/10: Patient's trach dislodged today. Nevertheless respiratory status is intact attempt to reinsert was unsuccessful will monitor discussed with nursing staff to pay close attention to the patient. Considering that this was not a planned decannulation I will start the patient on continuous pulse ox until full evaluation was done by pulmonary. 02/13/2021 Vital signs stable Unresponsive secondary to anoxic encephalopathy Awaiting placement 02/14/2021 Awaiting placement 02/15/2021 Anoxic encephalopathy Awaiting placement 02/16/2021 Anoxic encephalopathy Awaiting placement 02/17/2021 Anoxic encephalopathy awaiting placement 02/18/2021 Anoxic encephalopathy awaiting placement 02/19/2021 Anoxic encephalopathy awaiting placement 02/20/2021 Anoxic encephalopathy awaiting placement 02/21/2021 Anoxic encephalopathy awaiting placement 02/22/2021 Anoxic encephalopathy awaiting placement 02/23/2021 Anoxic encephalopathy awaiting placement 02/24/2021 Anoxic encephalopathy awaiting placement 02/25/2021 Anoxic encephalopathy waiting for placement 02/26 Awaiting placement 02/27. Awaiting placement 02/28. No change in medical condition. Awaiting placement 03/01. No medical changes noted. Awaiting placement 03/01. No medical changes noted. Awaiting placement 03/02. Had temperature more than 100 Fahrenheit. Ordered labs and chest x-ray. Labs reviewed. No pna and no leukocytosis. Procalcitonin negative. Blood cultures negative so far. Continue to monitor for now 03/03 - 03/07. No overnight events. Awaiting placement. Hospitalist Physical - Physical exam Narrative exam: VITAL SIGNS: Reviewed. GENERAL: Trach in place HEAD: No signs of head trauma. EYES: Pupils are equal. NECK: No adenopathy, no JVD. CHEST: Diminished breath sounds CARDIAC: normal S1 and S2, without murmurs, gallops, or rubs. ABDOMEN: Soft, non tender and non distended. No rebound or guarding, and no masses palpated. Bowel Sounds normal MUSCULOSKELETAL: No edema NEUROLOGIC EXAM: Not responsive SKIN: No obvious lesions - Constitutional Vitals: Temp Pulse Resp BP Pulse Ox 99.6 F 104 H 16 124/55 100 03/07/21 04:00 03/07/21 04:00 03/07/21 04:00 03/07/21 04:00 03/07/21 04:00 General appearance: Present: well-nourished HEART Score - HEART Score Age: < 45 Risk factors: 1-2 risk factors - Critical Actions Critical Actions: >7 pts:50-65% risk of adverse cardiac event. Early invasive measures Results - Labs CBC & Chem 7: 03/04/21 04:46 03/04/21 04:46 Labs: Laboratory Last Values WBC 8.6 K/mm3 (4.5-11.0) 03/04/21 04:46 RBC 5.49 M/mm3 (3.65-5.03) H 03/04/21 04:46 Hgb 13.4 gm/dl (10.1-14.3) 03/04/21 04:46 Hgb Comment See scanned result 10/04/20 Unknown Hct 41.0 % (30.3-42.9) 03/04/21 04:46 MCV 75 fl (79-97) L 03/04/21 04:46 MCH 25 pg (28-32) L 03/04/21 04:46 MCHC 33 % (30-34) 03/04/21 04:46 RDW 15.3 % (13.2-15.2) H 03/04/21 04:46 Plt Count 298 K/mm3 (140-440) 03/04/21 04:46 Lymph % (Auto) 30.9 % (13.4-35.0) 03/04/21 04:46 [place] % (Auto) 9.1 % (0.0-7.3) H 03/04/21 04:46 Eos % (Auto) 2.1 % (0.0-4.3) 03/04/21 04:46 Baso % (Auto) 0.3 % (0.0-1.8) 03/04/21 04:46 Lymph # (Auto) 2.7 K/mm3 (1.2-5.4) 03/04/21 04:46 [place] # (Auto) 0.8 K/mm3 (0.0-0.8) 03/04/21 04:46 Eos # (Auto) 0.2 K/mm3 (0.0-0.4) 03/04/21 04:46 Baso # (Auto) 0.0 K/mm3 (0.0-0.1) 03/04/21 04:46 Add Manual Diff Complete 02/09/21 10:59 Total Counted 100 02/09/21 10:59 Seg Neutrophils % 57.6 % (40.0-70.0) 03/04/21 04:46 Seg Neuts % (Manual) 58.0 % (40.0-70.0) 02/09/21 10:59 Band Neutrophils % 2.0 % 10/15/20 05:50 Lymphocytes % (Manual) 29.0 % (13.4-35.0) 02/09/21 10:59 Reactive Lymphs % (Man) 1.0 % 10/02/20 12:18 Monocytes % (Manual) 13.0 % (0.0-7.3) H 02/09/21 10:59 Eosinophils % (Manual) 1.0 % (0.0-4.3) 10/29/20 07:56 Myelocytes % 2.0 % 10/02/20 13:05 Metamyelocytes % 1.0 % 10/14/20 04:00 Nucleated RBC % Not Reportable 02/09/21 10:59 Seg Neutrophils # 4.9 K/mm3 (1.8-7.7) 03/04/21 04:46 Seg Neutrophils # Man 3.7 K/mm3 (1.8-7.7) 02/09/21 10:59 Band Neutrophils # 0.0 K/mm3 02/09/21 10:59 Lymphocytes # (Manual) 1.8 K/mm3 (1.2-5.4) 02/09/21 10:59 Abs React Lymphs (Man) 0.0 K/mm3 02/09/21 10:59 Monocytes # (Manual) 0.8 K/mm3 (0.0-0.8) 02/09/21 10:59 Eosinophils # (Manual) 0.0 K/mm3 (0.0-0.4) 02/09/21 10:59 Basophils # (Manual) 0.0 K/mm3 (0.0-0.1) 02/09/21 10:59 Metamyelocytes # 0.0 K/mm3 02/09/21 10:59 Myelocytes # 0.0 K/mm3 02/09/21 10:59 Promyelocytes # 0.0 K/mm3 02/09/21 10:59 Blast Cells # 0.0 K/mm3 02/09/21 10:59 WBC Morphology Not Reportable 02/09/21 10:59 Hypersegmented Neuts Not Reportable 02/09/21 10:59 Hyposegmented Neuts Not Reportable 02/09/21 10:59 Hypogranular Neuts Not Reportable 02/09/21 10:59 Smudge Cells Not Reportable 02/09/21 10:59 Toxic Granulation Not Reportable 02/09/21 10:59 Toxic Vacuolation Not Reportable 02/09/21 10:59 Dohle Bodies Not Reportable 02/09/21 10:59 Pelger-Huet Anomaly Not Reportable 02/09/21 10:59 Ester Rods Not Reportable 02/09/21 10:59 Platelet Estimate Consistent w auto 02/09/21 10:59 Clumped Platelets Not Reportable 02/09/21 10:59 Plt Clumps, EDTA Not Reportable 02/09/21 10:59 Large Platelets Few 02/09/21 10:59 Giant Platelets Not Reportable 02/09/21 10:59 Platelet Satelliting Not Reportable 02/09/21 10:59 Plt Morphology Comment Not Reportable 02/09/21 10:59 RBC Morphology Not Reportable 02/09/21 10:59 Dimorphic RBCs Not Reportable 02/09/21 10:59 Polychromasia Not Reportable 02/09/21 10:59 Hypochromasia 1+ 02/09/21 10:59 Poikilocytosis Not Reportable 02/09/21 10:59 Anisocytosis Not Reportable 02/09/21 10:59 Microcytosis Not Reportable 02/09/21 10:59 Macrocytosis Not Reportable 02/09/21 10:59 Spherocytes Not Reportable 02/09/21 10:59 Pappenheimer Bodies Not Reportable 02/09/21 10:59 Sickle Cells Not Reportable 02/09/21 10:59 Target Cells Not Reportable 02/09/21 10:59 Tear Drop Cells Not Reportable 02/09/21 10:59 Ovalocytes Not Reportable 02/09/21 10:59 Stomatocytes Few 10/14/20 04:00 Helmet Cells Not Reportable 02/09/21 10:59 [place] Bodies Not Reportable 02/09/21 10:59 [place] Rings Not Reportable 02/09/21 10:59 [place] Cells Not Reportable 02/09/21 10:59 Bite Cells Not Reportable 02/09/21 10:59 Crenated Cell Not Reportable 02/09/21 10:59 Elliptocytes Not Reportable 02/09/21 10:59 Acanthocytes (Spur) Not Reportable 02/09/21 10:59 Rouleaux Not Reportable 02/09/21 10:59 Hemoglobin C Crystals Not Reportable 02/09/21 10:59 Schistocytes Not Reportable 02/09/21 10:59 Malaria parasites Not Reportable 02/09/21 10:59 Sickle Cell Solubility See scanned result 10/04/20 Unknown Hemoglobin A See scanned result 10/04/20 Unknown Hemoglobin A2 See scanned result 10/04/20 Unknown Hemoglobin A2 Prime See scanned result 10/04/20 Unknown Hemoglobin C See scanned result 10/04/20 Unknown Hemoglobin D See scanned result 10/04/20 Unknown Hemoglobin E See scanned result 10/04/20 Unknown Hgb F Diffential Stain See scanned result 10/04/20 Unknown Hemoglobin F Quant See scanned result 10/04/20 Unknown Hemoglobin G See scanned result 10/04/20 Unknown Hemoglobin S See scanned result 10/04/20 Unknown Hemoglobin O-[place] See scanned result 10/04/20 Unknown Hemoglobin [place] See scanned result 10/04/20 Unknown Hemoglobin Analilia See scanned result 10/04/20 Unknown Variant Hemoglobin See scanned result 10/04/20 Unknown Abnorm Hgb IEF Confirm See scanned result 10/04/20 Unknown Hemoglobin Interpret See scanned result 10/04/20 Unknown Hemoglobinopathy Note See scanned result 10/04/20 Unknown Sharad Bodies Not Reportable 02/09/21 10:59 Hem Pathologist Commnt No 02/09/21 10:59 PT 13.6 Sec. (12.2-14.9) 10/21/20 13:54 INR 1.06 (0.87-1.13) 10/21/20 13:54 APTT 31.6 Sec. (24.2-36.6) 10/03/20 00:40 Fibrinogen 336 mg/dl (211-480) 10/04/20 10:00 D-Dimer 1974.47 ng/mlDDU (0-234) H 11/11/20 13:50 ABG pH 7.459 pH Units (7.350-7.450) H 10/26/20 10:30 POC ABG pCO2 20.7 mmHg (32.0-48.0) L 10/13/20 07:18 ABG pCO2 32.4 mm Hg 10/26/20 10:30 POC ABG pO2 137.9 mmHg (83-108) H 10/13/20 07:18 ABG pO2 112.2 mm Hg (80.0-90.0) H 10/26/20 10:30 POC ABG HCO3 14.8 10/13/20 07:18 ABG HCO3 22.5 mmol/L (20.0-26.0) 10/26/20 10:30 ABG O2 Saturation 98.2 % (95.0-99.0) 10/26/20 10:30 ABG O2 Content 18.5 (0.0-44) 10/26/20 10:30 POC ABG Base Excess -6.9 10/13/20 07:18 ABG Base Excess -0.6 mmol/L (-2.0-3.0) 10/26/20 10:30 ABG Hemoglobin 13.5 gm/dl (12.0-16.0) 10/26/20 10:30 ABG Oxyhemoglobin 98.3 (94-98) H 10/13/20 07:18 ABG Carboxyhemoglobin 1.3 % (0.0-5.0) 10/26/20 10:30 ABG Methemoglobin 0.5 % (0.0-1.5) 10/26/20 10:30 ABG Sodium 135.9 mmol/L (136.0-145.0) L 10/13/20 07:18 ABG Potassium 3.7 mmol/L (3.40-4.50) 10/13/20 07:18 ABG Chloride 111.0 mmol/L (98-107) H 10/13/20 07:18 ABG Glucose 109 mg/dL (65-95) H 10/13/20 07:18 VBG pH 6.949 (7.320-7.420) L* 10/02/20 Unknown Oxyhemoglobin 96.5 % (95.0-99.0) 10/26/20 10:30 Carboxyhemoglobin 0.3 (0.5-1.5) L 10/13/20 07:18 FiO2 25 % 10/26/20 10:30 Sodium 144 mmol/L (137-145) 03/04/21 04:46 Potassium 4.2 mmol/L (3.6-5.0) 03/04/21 04:46 Chloride 105.2 mmol/L (98-107) 03/04/21 04:46 Carbon Dioxide 26 mmol/L (22-30) 03/04/21 04:46 Anion Gap 17 mmol/L 03/04/21 04:46 BUN 15 mg/dL (7-17) 03/04/21 04:46 Creatinine 0.5 mg/dL (0.6-1.2) L 03/04/21 04:46 Estimated GFR > 60 ml/min 03/04/21 04:46 BUN/Creatinine Ratio 30 % 03/04/21 04:46 Glucose 96 mg/dL (65-100) 03/04/21 04:46 POC Glucose 111 mg/dL (70-105) H 03/06/21 23:38 Random Insulin 43.2 uIU/mL (<=19.6) H 11/02/20 19:19 Proinsulin See scanned result 11/02/20 19:19 C-Peptide 6.23 ng/mL (0.80-3.85) H 11/02/20 19:19 Lactic Acid 1.90 mmol/L (0.7-2.0) 10/04/20 22:00 Uric Acid 7.5 mg/dL (3.5-7.6) 10/02/20 13:05 Calcium 10.0 mg/dL (8.4-10.2) 03/04/21 04:46 Ionized Calcium 4.4 mg/dL (4.8-5.6) L 10/07/20 21:00 Phosphorus 4.60 mg/dL (2.5-4.5) H 11/13/20 10:05 Magnesium 2.10 mg/dL (1.7-2.3) 11/13/20 10:05 Total Bilirubin 0.80 mg/dL (0.1-1.2) 03/04/21 04:46 AST 51 units/L (5-40) H 03/04/21 04:46 ALT 53 units/L (7-56) 03/04/21 04:46 Alkaline Phosphatase 117 units/L (35-129) 03/04/21 04:46 Lactate Dehydrogenase 769 units/L (91-180) H 10/02/20 13:05 C-Reactive Protein 0.70 mg/dL (0.00-1.30) 11/11/20 13:50 NT-Pro-B Natriuret Pep 2788 pg/mL (0-450) H 10/04/20 10:00 Total Protein 8.4 g/dL (6.3-8.2) H 03/04/21 04:46 Albumin 4.2 g/dL (3.9-5) 03/04/21 04:46 Albumin/Globulin Ratio 1.0 % 03/04/21 04:46 Procalcitonin < 0.05 ng/mL (<0.15) 03/02/21 02:30 Arterial Blood Glucose 109 mg/dL (65-95) H 10/13/20 07:18 Arterial Blood Ionized Calcium 4.6 mg/dL (4.6-5.3) 10/13/20 07:18 Urine Color Yellow (Yellow) 01/25/21 09:51 Urine Turbidity Cloudy (Clear) 01/25/21 09:51 Urine pH 7.0 (5.0-7.0) 01/25/21 09:51 Ur Specific [place] 1.011 (1.003-1.030) 01/25/21 09:51 Urine Protein <15 mg/dl mg/dL (Negative) 01/25/21 09:51 Urine Glucose (UA) Neg mg/dL (Negative) 01/25/21 09:51 Urine Ketones Neg mg/dL (Negative) 01/25/21 09:51 Urine Blood Neg (Negative) 01/25/21 09:51 Urine Nitrite Neg (Negative) 01/25/21 09:51 Urine Bilirubin Neg (Negative) 01/25/21 09:51 Urine Urobilinogen < 2.0 mg/dL (<2.0) 01/25/21 09:51 Ur Leukocyte Esterase Neg (Negative) 01/25/21 09:51 Urine WBC (Auto) 6.0 /HPF (0.0-6.0) 01/25/21 09:51 Urine RBC (Auto) 3.0 /HPF (0.0-6.0) 01/25/21 09:51 U Epithel Cells (Auto) < 1.0 /HPF (0-13.0) 01/25/21 09:51 Urine Bacteria (Auto) 1+ /HPF (Negative) 01/18/21 08:47 Urine WBC Clumps 3+ /HPF 11/11/20 13:50 Calcium Oxalate Crystal Few 11/11/20 13:50 Urine Mucus Few /HPF 01/25/21 09:51 Urine Yeast (Budding) 2+ /HPF 01/25/21 09:51 Vancomycin Trough 12.6 ug/mL (5.0-20.0) 10/21/20 13:54 Random Vancomycin 10.7 ug/mL (0-40.0) 10/16/20 13:09 Phenytoin 5.7 ug/mL (10.0-20.0) L 10/13/20 07:00 C. difficile Tox (PCR) Positive (Negative) 10/16/20 10:22 Coronavirus (PCR) Negative (Negative) 10/08/20 14:15 Blood Type O POSITIVE 10/02/20 12:50 Antibody Screen Negative 10/02/20 12:50 Crossmatch See Detail 10/02/20 12:50 Microbiology: Microbiology 03/02/21 04:40 Peripheral/Venous Blood Culture - Final NO GROWTH AFTER 5 DAYS 03/01/21 23:43 Peripheral/Venous Blood Culture - Final NO GROWTH AFTER 5 DAYS - Diagnostic Impressions Diagnostic Impressions: Echocardiogram 10/03/20 13:42 Transthoracic Echocardiogram Indication: S/P Cardiac Arrest R/O Cardiomyopathy BP: 133/71 Conclusions *Global left ventricular systolic function is normal. *The estimated ejection fraction is 60-65%. *There is trace of mitral regurgitation. *The right 0heart chambers are both slightly dilated. *There is mild tricuspid regurgitation. *There is mild-moderate pulmonary hypertension. *The right ventricular systolic pressure is calculated at 44 mmHg. *The study quality is technically difficult. Findings Procedure Info: The study quality is technically difficult. The study is technically limited due to patient body habitus. The study was technically limited due to the patient's inability to lay in the left lateral decubitus position. Left Ventricle: The left ventricular chamber size is normal. There is no left ventricular hypertrophy. Global left ventricular systolic function is normal. The estimated ejection fraction is 60-65%. Left Atrium: The left atrial chamber size is normal. Right Ventricle: The right ventricle is slightly dilated. Right Atrium: The right atrium is mildly dilated. Aortic Valve: The aortic valve leaflets are mildly thickened. There is no evidence of aortic regurgitation. There is no evidence of aortic stenosis. Mitral Valve: The mitral valve leaflets are mildly thickened. There is trace of mitral regurgitation. There is no evidence of mitral stenosis. Tricuspid Valve: There is mild tricuspid regurgitation. The right ventricular systolic pressure is calculated at 44 mmHg. There is evidence of mild pulmonary hypertension. Pulmonic Valve: There is trace pulmonic regurgitation. Pericardium: There is no pericardial effusion. Aorta: There is no dilatation of the ascending aorta. There is no dilatation of the aortic root. Venous: The inferior vena cava is dilated. Measurements Chambers 2D Name Value Normal Range IVSd (2D) 1 cm (0.6 - 1.1) LVPWd (2D) 1.01 cm (0.6 - 1.1) LVIDd (2D) 4.58 cm (3.7 - 5.6) LVIDs (2D) 3.17 cm (2 - 3.8) LV FS (2D) 30.93 % - EF Teichholz (2D) 58.66 % - Ao root diameter (2D) 2.94 cm (2 - 3.7) Volumes/Mass Name Value Normal Range LA ESV SP 4CH (A/L) 72.82 ml - LA ESV SP 2CH (A/L) 66.86 ml - LA ESV BP (A/L) 74.49 ml - LA ESV SP 4CH (MOD) 71.03 ml - LA ESV SP 2CH (MOD) 64.3 ml - LV EDV SP 4CH (MOD) 98.82 ml - LV ESV SP 4CH (MOD) 24.8 ml - EF SP 4CH (MOD) 74.9 % - LV EDV SP 2CH (MOD) 86.1 ml - LV ESV SP 2CH (MOD) 36.93 ml - EF SP 2CH (MOD) 57.11 % - LV EDV BP 94.4 ml - LV ESV BP 32.66 ml - BP EF (MOD) 65.4 % - Diastolic/Systolic Function Name Value Normal Range MV E-wave Vmax 1.04 m/sec - MV deceleration time 160.46 msec - MV A-wave Vmax 0.92 m/sec - MV E:A ratio 1.14 ratio - Aortic Valve Name Value Normal Range AV Vmax 2.12 m/sec - AV VTI 22.37 cm - AV peak gradient 17.95 mmHg - AV mean gradient 7.29 mmHg - LVOT diameter 2.01 cm - LVOT Vmax 1.8 m/sec - LVOT VTI 27.17 cm - LVOT peak gradient 12.91 mmHg - LVOT mean gradient 6.83 mmHg - SV LVOT 86.42 ml - ANITA (continuity Vmax) 2.7 cm2 - ANITA (continuity VTI) 3.86 cm2 - Ascending Ao 3.18 cm - Tricuspid Valve Name Value Normal Range TV E-wave Vmax 0.88 m/sec - TR Vmax 3.01 m/sec - TR peak gradient 36.27 mmHg - RAP 8 mmHg - RVSP 44 mmHg - IVC diameter 2.65 cm (1.2 - 2.3) Pulmonic Valve/Qp:Qs Name Value Normal Range PV Vmax 1.22 m/sec - PV peak gradient 5.91 mmHg - RVOT Vmax 0.87 m/sec - RVOT VTI 13.32 cm - RVOT peak gradient 3 mmHg - PV acceleration time 110.37 msec - [place]/IV: Voiding Method External Female Catheter IV Catheter Type [Right Foot] INT / Saline Lock IV Catheter Type [Left Forearm Peripheral IV ] IV Catheter Type [Left Wrist] INT / Saline Lock IV Catheter Type [Right Hand] INT / Saline Lock IV Catheter Type [Right INT / Saline Lock Antecubital] IV Catheter Type [Right Upper Mid-line arm] IV Catheter Type [Left Triple Lumen Cath Internal Jugular] IV Catheter Type [Left Hand] Peripheral IV IV Catheter Type [Left Peripheral IV Antecubital] Active Medications - Current Medications Current Medications: Generic Name Dose Route Start Last Admin Trade Name Freq PRN Reason Stop Dose Admin Acetaminophen 650 mg 10/05/20 16:34 03/03/21 17:30 Acetaminophen 325 Mg/10.15 Ml Oral Liqd Unit Dose FEEDTUBE 650 mg Q6H PRN Administration Non Cardiac Pain or Temp>100.5 Albuterol 2.5 mg 11/05/20 13:03 11/06/20 13:04 Albuterol 2.5 Mg/3 Ml Nebu IH 2.5 mg Q4HRT PRN Administration Shortness Of Breath Alprazolam 0.25 mg 01/20/21 13:33 03/05/21 18:08 Alprazolam 0.25 Mg Tab PO 0.25 mg Q8H PRN Administration Anxiety Lipase/Protease/Amylase 1 each 10/05/20 11:09 Lipase 10,500/Protease 25,000/Amylase 43,750 (Units) Dr Barakat [place] PRN PRN For Clogged Feeding Tube Enoxaparin Sodium 40 mg 10/22/20 10:00 03/06/21 11:26 Enoxaparin 40 Mg/0.4 Ml Inj SUB-Q 40 mg DAILY ERINN Administration Protocol Famotidine 20 mg 10/07/20 10:00 03/06/21 22:00 Famotidine 20 Mg Tab PO 20 mg BID ERINN Administration Hydrophilic Ointment 1 applic 01/03/21 13:00 02/16/21 09:56 Lip Therapy Vaseline TP 1 applic DIRECT PRN Administration Dry Lips Dextrose 1,000 mls @ 30 mls/hr 01/03/21 12:00 02/11/21 18:44 D5w IV 30 mls/hr DIRECT ERINN Administration Metoprolol Tartrate 50 mg 02/02/21 16:01 03/06/21 22:00 Metoprolol Tartrate 25 Mg Tab PO 50 mg BID ERINN Administration Morphine Sulfate 2 mg 01/20/21 13:33 Morphine 2 Mg/1 Ml Inj IV Q4H PRN Pain, Moderate (4-6) Ondansetron HCl 4 mg 02/10/21 11:38 02/10/21 13:18 Ondansetron 4 Mg/2 Ml Inj IV 4 mg Q4H PRN Administration Nausea And Vomiting Simple Syrup 15 ml 10/05/20 11:09 Simple Syrup 15 Ml FEEDTUBE PRN PRN Hypoglycemia Simple Syrup 30 ml 10/05/20 11:09 Simple Syrup 15 Ml FEEDTUBE PRN PRN Hypoglycemia Sodium Bicarbonate 325 mg 10/05/20 11:09 12/16/20 08:19 Sodium Bicarbonate 325 Mg Tab FEEDTUBE 325 mg PRN PRN Administration For Clogged Feeding Tube Nutrition/Malnutrition Assess - Dietary Evaluation Nutrition/Malnutrition Findings: Nutrition Notes Start: 10/04/20 11:1 3 Freq: Status: Active Protocol: Document 03/05/21 12:00 AL (Rec: 03/05/21 12:04 AL [id number]) Co-Sign 03/05/21 12:00 LP Nutrition Notes Initial or Follow up Brief Note Other Pertinent Diagnosis s/p cardiac arrest x 2, anoxic brain injury Current Diet Promote at 65ml/hr Subjective/Other Information F/U for TF change. TF was not supposed to change. Error in previous note. Promote 1.0 running at 60 ml/hr. Burn Absent Trauma Absent Nutrition Intervention Anticipated Discharge Needs: Promote at 65 ml/hr Flush 100 ml q4h Follow-Up By: 03/12/21 Additional Comments F/U for stable TF
[2021-03-07] MEDS: ENOXAPARIN 40 MG/0.4 ML INJ SUB-Q SCH (09:27)
[2021-03-07] MEDS: FAMOTIDINE 20 MG TAB PO SCH ×2 (09:28→21:56)
[2021-03-07] MEDS: METOPROLOL TARTRATE 25 MG TAB PO SCH ×2 (09:28→21:56)
[2021-03-08] MEDS: ALPRAZolam 0.25 MG TAB PO PRN ×2 (01:10→14:13)
[2021-03-08] MEDS: ACETAMINOPHEN 325 MG/10.15 ML ORAL LIQD UNIT DOSE FEEDTUBE PRN (01:14)
[2021-03-08] MEDS: METOPROLOL TARTRATE 25 MG TAB PO SCH ×2 (12:13→21:12)
[2021-03-08] MEDS: FAMOTIDINE 20 MG TAB PO SCH ×2 (12:13→21:12)
[2021-03-08] MEDS: ENOXAPARIN 40 MG/0.4 ML INJ SUB-Q SCH (14:11)
[2021-03-09] MEDS: METOPROLOL TARTRATE 25 MG TAB PO SCH ×2 (09:01→21:17)
[2021-03-09] MEDS: FAMOTIDINE 20 MG TAB PO SCH ×2 (09:01→21:17)
[2021-03-09] MEDS: ACETAMINOPHEN 325 MG/10.15 ML ORAL LIQD UNIT DOSE FEEDTUBE PRN (09:01)
[2021-03-09] MEDS: ENOXAPARIN 40 MG/0.4 ML INJ SUB-Q SCH (09:01)
--- NOTE | 2021-03-09 09:45 | Progress Note ---
Assessment and Plan Assessment and plan: --DIC (disseminated intravascular coagulation) vs HELLP syndrome Resolved --Possible Eclampsia/HELLP Syndrome Resolved --s/p Cardiac arrest x2 on admission and on 10/07 ACLS protocol followed by revival Echo showed preserved Ef --Anoxic brain injury, Developed following cardiac arrest, continue supportive care --Shock-resolved now awaiting placement s/p pressor support --ADOLPH-resolved Stable --Sepsis 2/2 UTI Resolved --Hypernatremia, resolved, cont free water with TF Resolved --DVT prophylaxis - lovenox Disposition - Pending placement History Interval history: 1 y/o female patient with Eclampsia/help syndrome, s/p emergent section with DIC, hemorrhage, supracervical abdominal hysterectomy, acute respiratory failure , tracheostomy on T-piece with morbid obesity, s/p cardiac arrest 12/08/2019 status post CPR per ACLS, acute hypoxic brain injury Acute kidney injury improved, severe shock requiring pressors, DIC septic shock improved, history of C. difficile colitis on vancomycin. Tracheostomy on T-piece, continues to require 5 L of oxygen. Brief history; 30 year old -[place] female CHE 10/25/20 at 36w5d who presents with seizures in triage on 10/02/20. Pt was not able to provide history but per pt's , she presented to the hospital to return a 24 hour urine specimen for analysis. She then suddenly reported that she did not feel good. She was taken to labor and delivery and shortly after arrival, she began seizing. During this time, a code met was called because the patient became hypoxic. She was then noted to be without a pulse. Chest compressions were started immediately, and the patient was emergently taken to the operating room for delivery of the fetus. Off note, This patient has had care at [facility] with comanagement by [facility] since 11 wks complicated by ADHD, morbid obesity, generalized anxiety disorder, panic attacks, chronic narcotic use, fibromyalgia, GERD, Irritable Bowel Syndrome, Migraines, h/o endometrial ablation and ovarian vein embolization, genital herpes, insomnia, LGA fetus, nausea and vomiting, polyhydramnios, quad screen positive for Down's Syndrome, and previous x 3. She is GBS negative. , Patient tracheostomy on ventilatory support, unable to wean, continue supportive care poor prognosis 11:30: Pt brought to L&D triage for evaluation of possible labor. Pt accompanied by her spouse. Pt spouse poor historian; unable to obtain history- allergies at this time. Pt taken from registration to triage area via WC. Pt unresponsive, a ctively seizing with snorous respirations. procurement cost coordinator, Kassy, called and requesting assistance. 11:35: Multiple staff at bedside. Pt 02 sat 67% on nonrebreather, unable to read BP . Yifan Theodore CRNA, at bedside for intubation and assistance with IV insertion. INT attempt by multiple RNs unsuccessful at this time. 11:42: Pt being bagged by KORIN, 02% 79%. No pulse palpated, compressions on at this time; bharati young called and Dr. Newberry preparing OR for emergent c/s. 11:44: Continued compressions on stretcher while transporting pt to OR 1. Pt being bagged with jaw thrust manuever in place by KORIN Stringer student. 11:45: Arrival to OR 1. Dr. Newberry and Dr. Portillo present for emergent c/s. Code team arrived for continued care. patient revived and c/s done Patient has been bleeding from C/s site followed by supracervical hysterectomy for severe bleeding, Patient transfused multiple units of PRBC, Patient in DIC. Patient transferred to the ICU Hospital course; 10/03. Patient seen and examined at bedside this morning. Patient is nonresponsive and mechanically ventilated. On pressors. Labs reviewed-has leukocytosis, anemia, thrombocytopenia, ADOLPH and lactic acidosis. Started on IV antibiotics to cover possible sepsis secondary to DIC. Hematology oncology recommendations appreciated-needs additional cryoprecipitate and FFP. Monitor D-dimer, fibrinogen and frequent labs. Nephrology consulted for lactic acidosis and ADOLPH. 10/04. Remains mechanically ventilated. Hanna antibiotics. Labs shows improved acidosis - lactic acid 3.5. Hb drop noted. Getting transfused 2 units PRBCs. Platelet count is ~40k. Continue to monitor labs closely. Critical care team on board. 10/05; xray reviewed, concerning for multifocal infilrate, likely underlying Pneumonia, will add ID consult to assist with management of this critically ill patient, start tube feed, closely monitor renal system 10/06: Resumed care, remains on mechanical ventilation. No active bleeding, H&H stable. Continue to monitor CBC and BMP. Continue IV antibiotic for underlying pneumonia. Follow critical care and ID recommendation. 10/07: Remains on mechanical ventilation. No active bleeding, H&H stable. Cri tical care following, wean off ventilation as tolerated. 10/08: Patient had another cardiac arrest last night. Remains on mechanical ventilation, update family. Continue supportive care -poor prognosis 10/09: Called patient mother and discussed about patient care and management. Answered all question to best of my knowledge and family satisfaction. Patient remains on mechanical ventilation, cardiac arrest x2 so far. Critically sick, poor prognosis 10/10: remains on mechanical ventilation. h/h stable, no active bleeding. monitor CBC/BMP 10/11: WBC trended up with diarrhea, started on vancomycin po. remains on MV, off pressor, tolerating TF 10/12: remains on MV, off pressor, tolerating TF. called family for update but unable to reach, could not leave message as it was full. cont supportive care, wean off vent as tolerated. 10/13/2020; patient is on mechanical ventilation, tolerating tube feeding. Patient has labored breathing. Neuro was consulted and recommend MRI. Patient is on Precedex. Rectal tube in place. 10/14/2020; patient is on mechanical ventilation, Precedex. Patient had fever and blood culture ordered. Patient is on IV vancomycin per ID recommendation. Neuro consulted and recommend MRI. Continue to monitor. Prognosis is guarded. 10/15/2020; patient is on mechanical ventilation, Precedex. Patient had fever and blood culture ordered. Patient is on IV vancomycin per ID recommendation. Neuro consulted and recommend MRI. Continue to monitor. Prognosis is guarded. 12: Remains with C.DIFF and Bactermia, Poor prognosis. No purposeful movement. MRI and EEG discussed with Intensvisit, Continue aggressive BP control. 3: Blood pressure better controlled MRI done 10/15 shows mild improvement in edema. We will continue to monitor mother was at bedside yesterday. Nursing documentation trach and PEG discussed with the mother including goals of care. She is still in denial about the gravity of her daughters her condition which is understandable considering her age. Continue aggressive management at this time. Await for bacteremia to clear by ID before placing PICC line. 10/19: Patient for possible PEG and Trach, ID following, repeat cultures remain negative. Poor prognosis 10/20: Pt noted to DVT and SVT in the RUE, Vascular consult and will also obtain Hematology for possible considering changing in Anticoagulation. CONTINUE TO M ONITOR H/H and PLT. Family updated by [employer]ens[employer]it. Heparin gtt started. Will check CBC and BMP 10/21: Continue supporive care, Diarrhea now resolving, But still with persistent Fever, May need repeat CT/AP per ID, still with profused Encephalopathy 10/22: Continue supportive care, weaning, awaiting repeat Imaging. FOLLOW Fever curve. Enoxparin restarted 10/23: Continue supportive care, wean as tolerated. 10/24; Started on CPAP trial, discussed with pulmonary, still with diarrhea. 10/25: Patients seen and examined, no clinical changes, still with diarrhea. ?meaningful recovery. 10/26: Clinically unchanged, continue CPAP trial, Will discuss with Neurology about re-evaluation, ?Need for repeat CT head. ?PRESS considering initial elevated BP, now stable. 10/27; tracheostomy on vent, weaning trials, vital signs noted, poor prognosis 10/28; unable to wean, tracheostomy on vent. Sepsis. Continue current management. Consults and recommendations noted and appreciated 10/30/2020;Patient on T-piece 5 L of oxygen not in acute distress, noncommunicative 11/02/2020; patient on T-piece 5 L of oxygen 11/03/2020; patient's fever slightly improved low-grade, continue current management, remains on T-piece with 5 L of oxygen 11/04/2020; T-max last 24 hours 100.3 F, new cultures negative to date, monitor off antibiotics Patient is off Levophed, blood pressures reasonable level, tracheostomy on T- piece 3 to 5 L nasal cannula oxygen 11/05/2020; tracheostomy on T-piece patient remains on 5 L of nasal cannula oxygen, unresponsive severe hypoxic brain injury I called patient's mother Ms. Pamela Bassett as well as patient's spouse Mr. Danilo Dimas at [phone] unable to reach them Left voicemail on Ms. Pamela Bassettz phone and encouraged him to call back 11/06/2020; I tried to call again today Ms. Pamela Bassett to discuss patient's condition and treatment plan and update consultants recommendations and patient's prognosis., unable to reach her 11/07/20 Will try LTAC/Hospice 11/08/20 Same condition 11/09/2020 Same condition 11/10/2020; family conference was held by case management yesterday 11/09/2020, family decided and agreed for SNF placement 11/11/2020; patient seen and examined, clinically no change tracheostomy on 5 L of nasal cannula oxygen, hemodynamically and clinically stable for discharge To LTAC versus SNF, DC planning per case management 11/12/2020; clinically no change, continue current management, DC planning per case management possible SNF placement 11/13/2020; patient is receiving herpes flareup treatment per ID 11/14/2020; clinically no change, awaiting SNF placement 11/15/2020; clinically no change, tracheostomy on T-piece on 5 L oxygen, awaiting placement 11/16/2020; patient awaiting placement 11/18/2020; abdominal CT scan negative for insulinoma or pancreatic tumor ,clinically no change Awaiting SNF placement 11/19/2020; remains on 4 L of oxygen tracheostomy via T-piece, awaiting SNF placement 11/20/2020 Awaiting SNF placement 11/21/2020 Waiting for SNF placement 11/22/2020 Waiting for placement 11/23/2020 Waiting for placement 11/24/2020 through 12/24/2020 Patient waiting for placement 11/27/2020; patient remains hypoglycemic on D10 W IV fluids, CT abdomen negative for insulinoma Remains stable awaiting SNF placement, tracheostomy on 5 L oxygen via T-piece 11/28/2020; awaiting SNF placement 11/29/2020; patient remains unresponsive, tracheostomy on T-piece, on 4 to 5 L of oxygen Wean as tolerated, DC planning per case management possible SNF placement 11/30/2020; awaiting SNF placement 12/02/2020; awaiting placement, stable for discharge 12/03/2020; clinically no change, awaiting placement, tracheostomy on T-piece, anoxic brain injury 12/04/2020 Patient has anoxic encephalopathy with anoxic brain brain injury Awaiting placement 12/05/2020; anoxic brain injury, awaiting placement. 12/06/20; anoxic brain injury. Awaiting placement. 12/07/2020; anoxic brain injury, awaiting placement. 12/09/2020; anoxic brain injury, awaiting placement. 12/10/2020; patient had episodes of fever overnight. CBC, BMP, blood culture, UA and chest x-ray ordered, will follow and manage accordingly. Urinalysis is suggestive of UTI and I put the patient on ceftriaxone, order urine culture. Chest x-ray is normal. 12/11/2020; patient is on ceftriaxone day 2 for UTI. We will continue to follow urine culture. 12/12/2020. Day #3 of Rocephin for UTI. We will continue for 2 more days while she is here. Present UTI. 12/13/2020. Day #4 of Rocephin for UTI. Patient remains on 50% with tracheostomy. Remains unresponsive with evidence of anoxic encephalopathy unable to make needs known. 12/14/2020. Day #5 of Rocephin for UTI completed today. Remains encephalopathic unable to make needs known. Remains on 50% unable to decrease oxygen via tracheostomy. Overall prognosis remains extremely poor. 12/15: Continue to monitor. Stop and monitor antibiotics at this time. Continue to wean oxygen as tolerated. Wean oxygen as tolerated. Case management working on placement. 12/16: Continue supportive care aspiration precautions. Awaiting placement discussion. Monitor fever curve. Prognosis remains poor no evidence of neurological recovery as of today 12/17: Continue supportive care, check labs and chest xray. Still monitor off antibiotics. Monitor Sodium level 12/18: Patient remains with intermittent low grade fever, reviewed EEG from September again, consistent for Ischemic Hypoxic Encephalopathy, patient with decorticating posturing type presentation. Will discuss with core maker helper to optimize diet so we can discontinue D5. CXR with no abnormality. Discussed extensively with the nursing staff at bedside CXR IMPRESSION: 1. No acute findings. 12/19: No clinical change 12/20: No clinical change, now off abx, monitor, discussed her medications with our pharmacist I believe that her posture and rigidity is likely from underlying anoxic encephalopathy. Continue to monitor and await placement decision. Continue aggressive suctioning. Plan discussed in detail with the nursing staff 12/21: Continue supportive care. Will give 500 cc bolus of fluid today to replace insensible losses. Tachycardia appears to be improving. Blood pressure precludes adjusting cardiac meds. Still awaiting placement from case management. Plan discussed in detail with the nursing staff 12/22. Continue support supportive care. Tracheostomy and PEG in place. Remains nonresponsive. Awaiting placement. 12/23. Continue support supportive care. Tracheostomy and PEG in place. Remains nonresponsive. Awaiting placement. Remains tachycardic. Decrease dose of lasix. Will try low dose metoprolol. Monitor BP closely 12/24. Continue support supportive care. Tracheostomy and PEG in place. Remains nonresponsive. Awaiting placement. Heart rate slightly better. Continue to monitor BP closely 12/25. Continue support supportive care. Tracheostomy and PEG in place. Remains nonresponsive. Awaiting placement. 12/26. Continue support supportive care. Tracheostomy and PEG in place. Remains nonresponsive. Awaiting placement 12/27. Continue support supportive care. Tracheostomy and PEG in place. Remains nonresponsive. Awaiting placement 12/28. Had fever yesterday. Blood culture drawn. UA - UTI - started on antibiotics. Now tracheal aspirate is growing GN rods. 12/29: Continue IV antibiotics, continue supportive care. Since admission patient has shown minimal or no chance of neurological recovery. Need 24/7 assistance. Currently on trach and PEG, nonverbal. Waiting on SNF placement. Discussed with case filler today. 12/30: Continue IV antibiotics for UTI, continue supportive care. Pending placement 12/31: continue supportive care. continue supportive care. Pending placement 01/01: continue supportive care. Pending placement. cont Iv abx for UTI till 01/04 01/02: Continue supportive care, pending placement. Sodium level slightly elevated, will start hypotonic fluid. Continue antibiotics till 01/04 01/03; cont hypotonic fluid, increase free water with TF for hypernatremia, follow BMP. cont supportive care. pending placement. cont cefepime. recx blood 01/04: resolved hyponatremia, cont supportive care, pending placement. Last day of supplement today. 01/05: Continue supportive care, pending placement. Monitor H&H and fever curve off antibiotic. 01/06; monitor off abx, suction as needed, Continue supportive care, pending placement. 01/07: Discharge pending on placement, vitals stable. Continue supportive care 01/08: Discharge pending on placement, vitals stable. Continue supportive care. stop lasix, increase metoprolol to 25mg BID for ST. 01/09 patient resting with eyes closed. Opens eyes to tactile stimulus, has a blink reflex, does not follow simple commands, has a T-collar / G-tube Lab results reviewed, low-grade fever, 01/10 Eyes open, does not follow simple commands, no acute events overnight 01/11 no acute events overnight, Waiting for placement 01/12 No acute events overnight. Patient awaiting for placement 01/13. No new issues. Awaiting placement 01/14. No new issues. Awaiting placement. 01/15. No new issues. Awaiting placement. 01/16. No new issues. Patient remain stable. Awaiting placement. Check maintenance labs. 01/17. Routine maintenance labs were ordered and are still pending. Await placement. 01/18. Patient with low-grade fever past 24-48 hrs. WBC within normal limits. Check chest x-ray, urinalysis and consider blood cultures. Continue tracheostomy care, secretion control and airway management. Patient currently with PEG and tube feedings at 60 cc an hour. Nutritional support and aspiration precautions. 01/19. Temperature 100.7 overnight. Continue to monitor closely. Continue tracheostomy care, secretion control and airway management. Patient currently with PEG and tube feedings at 60 cc an hour. Nutritional support and aspiration precautions. 01/20. Continue to monitor closely. Continue tracheostomy care, secretion control and airway management. Patient currently with PEG and tube feedings at 60 cc an hour. Nutritional support and aspiration precautions. 01/21. Afebrile overnight. Continue to monitor closely. Continue tracheostomy care, secretion control and airway management. Patient currently with PEG and tube feedings at 60 cc an hour. Nutritional support and aspiration precautions. 01/22. Continue to monitor closely. Continue tracheostomy care, secretion control and airway management. Patient currently with PEG and tube feedings at 60 cc an hour. Nutritional support and aspiration precautions. 01/23. Continue tracheostomy care, secretion control and airway management. Patient currently with PEG and tube feedings at 60 cc an hour. Nutritional support and aspiration precautions. Will get routine labs tomorrow. 01/24. Labs reviewed. No abnormalities. Continue tracheostomy care, secretion control and airway management. Patient currently with PEG and tube feedings at 60 cc an hour. Nutritional support and aspiration precautions. 01/25. Temp 100.6. More sleepy today. Will get chest xray, blood culture, urinalysis, sputum cultures. Will start on empirical abx. 01/26: Vitals noted, slightly tachycardic. Follow culture work-up, continue supportive care. 01/27: Spiking low-grade temp, negative UA, sputum culture and recent blood cultures also negative. Continue to monitor off antibiotics. Continue supportive care. Pending placement. 01/28: cont to spike low grade temp, negative UA, sputum culture and recent blood cultures also negative. Continue to monitor off antibiotics. will order fpr sinus xry. Continue supportive care. Pending placement. 01/29: Continue to follow clinically, intermittently spiking low-grade temp, all recent culture work is negative, negative UA, normal respiratory jaylan 1 tracheal aspirate. Vitals noted and currently stable. Pending placement 01/30: Clinically unchanged, continue to monitor vitals, continue supportive cares. Pending placement. Discussed plan of care with RN at the bedside. 01/31 - TODATE: cont supportive care, pending placement. monitor vitals carefully. Discussed with family at the bedside. 02/06. Patient afebrile today. Continue trach care. Secretions stable today. Culture data negative so far. Awaiting placement. 02/07. Awaiting placement awaiting family member to evaluate papers. Continue trach care secretions stable. Pending placement 02/09: Intermittent fever, ?drug related, will check cxr and also labs. No new complaints. 02/10: Patient's trach dislodged today. Nevertheless respiratory status is intact attempt to reinsert was unsuccessful will monitor discussed with nursing staff to pay close attention to the patient. Considering that this was not a planned decannulation I will start the patient on continuous pulse ox until full evaluation was done by pulmonary. 02/13/2021 Vital signs stable Unresponsive secondary to anoxic encephalopathy Awaiting placement 02/14/2021 Awaiting placement 02/15/2021 Anoxic encephalopathy Awaiting placement 02/16/2021 Anoxic encephalopathy Awaiting placement 02/17/2021 Anoxic encephalopathy awaiting placement 02/18/2021 Anoxic encephalopathy awaiting placement 02/19/2021 Anoxic encephalopathy awaiting placement 02/20/2021 Anoxic encephalopathy awaiting placement 02/21/2021 Anoxic encephalopathy awaiting placement 02/22/2021 Anoxic encephalopathy awaiting placement 02/23/2021 Anoxic encephalopathy awaiting placement 02/24/2021 Anoxic encephalopathy awaiting placement 02/25/2021 Anoxic encephalopathy waiting for placement 02/26 Awaiting placement 02/27. Awaiting placement 02/28. No change in medical condition. Awaiting placement 03/01. No medical changes noted. Awaiting placement 03/01. No medical changes noted. Awaiting placement 03/02. Had temperature more than 100 Fahrenheit. Ordered labs and chest x-ray. Labs reviewed. No pna and no leukocytosis. Procalcitonin negative. Blood cultures negative so far. Continue to monitor for now 03/03 - 03/08. No overnight events. Awaiting placement. Hospitalist Physical - Physical exam Narrative exam: VITAL SIGNS: Reviewed. GENERAL: Trach in place HEAD: No signs of head trauma. EYES: Pupils are equal. NECK: No adenopathy, no JVD. CHEST: Diminished breath sounds CARDIAC: normal S1 and S2, without murmurs, gallops, or rubs. ABDOMEN: Soft, non tender and non distended. No rebound or guarding, and no masses palpated. Bowel Sounds normal MUSCULOSKELETAL: No edema NEUROLOGIC EXAM: Not responsive SKIN: No obvious lesions - Constitutional Vitals: Temp Pulse Resp BP Pulse Ox 99.9 F H 111 H 18 125/80 98 03/09/21 04:52 03/09/21 04:52 03/09/21 04:52 03/09/21 04:52 03/09/21 04:52 General appearance: Present: well-nourished HEART Score - HEART Score Age: < 45 Risk factors: 1-2 risk factors - Critical Actions Critical Actions: >7 pts:50-65% risk of adverse cardiac event. Early invasive measures Results - Labs CBC & Chem 7: 03/04/21 04:46 03/04/21 04:46 Labs: Laboratory Last Values WBC 8.6 K/mm3 (4.5-11.0) 03/04/21 04:46 RBC 5.49 M/mm3 (3.65-5.03) H 03/04/21 04:46 Hgb 13.4 gm/dl (10.1-14.3) 03/04/21 04:46 Hgb Comment See scanned result 10/04/20 Unknown Hct 41.0 % (30.3-42.9) 03/04/21 04:46 MCV 75 fl (79-97) L 03/04/21 04:46 MCH 25 pg (28-32) L 03/04/21 04:46 MCHC 33 % (30-34) 03/04/21 04:46 RDW 15.3 % (13.2-15.2) H 03/04/21 04:46 Plt Count 298 K/mm3 (140-440) 03/04/21 04:46 Lymph % (Auto) 30.9 % (13.4-35.0) 03/04/21 04:46 [place] % (Auto) 9.1 % (0.0-7.3) H 03/04/21 04:46 Eos % (Auto) 2.1 % (0.0-4.3) 03/04/21 04:46 Baso % (Auto) 0.3 % (0.0-1.8) 03/04/21 04:46 Lymph # (Auto) 2.7 K/mm3 (1.2-5.4) 03/04/21 04:46 [place] # (Auto) 0.8 K/mm3 (0.0-0.8) 03/04/21 04:46 Eos # (Auto) 0.2 K/mm3 (0.0-0.4) 03/04/21 04:46 Baso # (Auto) 0.0 K/mm3 (0.0-0.1) 03/04/21 04:46 Add Manual Diff Complete 02/09/21 10:59 Total Counted 100 02/09/21 10:59 Seg Neutrophils % 57.6 % (40.0-70.0) 03/04/21 04:46 Seg Neuts % (Manual) 58.0 % (40.0-70.0) 02/09/21 10:59 Band Neutrophils % 2.0 % 10/15/20 05:50 Lymphocytes % (Manual) 29.0 % (13.4-35.0) 02/09/21 10:59 Reactive Lymphs % (Man) 1.0 % 10/02/20 12:18 Monocytes % (Manual) 13.0 % (0.0-7.3) H 02/09/21 10:59 Eosinophils % (Manual) 1.0 % (0.0-4.3) 10/29/20 07:56 Myelocytes % 2.0 % 10/02/20 13:05 Metamyelocytes % 1.0 % 10/14/20 04:00 Nucleated RBC % Not Reportable 04/27/21 10:59 Seg Neutrophils # 4.9 K/mm3 (1.8-7.7) 03/04/21 04:46 Seg Neutrophils # Man 3.7 K/mm3 (1.8-7.7) 02/09/21 10:59 Band Neutrophils # 0.0 K/mm3 02/09/21 10:59 Lymphocytes # (Manual) 1.8 K/mm3 (1.2-5.4) 02/09/21 10:59 Abs React Lymphs (Man) 0.0 K/mm3 02/09/21 10:59 Monocytes # (Manual) 0.8 K/mm3 (0.0-0.8) 02/09/21 10:59 Eosinophils # (Manual) 0.0 K/mm3 (0.0-0.4) 02/09/21 10:59 Basophils # (Manual) 0.0 K/mm3 (0.0-0.1) 02/09/21 10:59 Metamyelocytes # 0.0 K/mm3 02/09/21 10:59 Myelocytes # 0.0 K/mm3 02/09/21 10:59 Promyelocytes # 0.0 K/mm3 02/09/21 10:59 Blast Cells # 0.0 K/mm3 02/09/21 10:59 WBC Morphology Not Reportable 02/09/21 10:59 Hypersegmented Neuts Not Reportable 02/09/21 10:59 Hyposegmented Neuts Not Reportable 02/09/21 10:59 Hypogranular Neuts Not Reportable 02/09/21 10:59 Smudge Cells Not Reportable 02/09/21 10:59 Toxic Granulation Not Reportable 02/09/21 10:59 Toxic Vacuolation Not Reportable 02/09/21 10:59 Dohle Bodies Not Reportable 02/09/21 10:59 Pelger-Huet Anomaly Not Reportable 02/09/21 10:59 Ester Rods Not Reportable 02/09/21 10:59 Platelet Estimate Consistent w auto 02/09/21 10:59 Clumped Platelets Not Reportable 02/09/21 10:59 Plt Clumps, EDTA Not Reportable 02/09/21 10:59 Large Platelets Few 02/09/21 10:59 Giant Platelets Not Reportable 02/09/21 10:59 Platelet Satelliting Not Reportable 02/09/21 10:59 Plt Morphology Comment Not Reportable 02/09/21 10:59 RBC Morphology Not Reportable 02/09/21 10:59 Dimorphic RBCs Not Reportable 02/09/21 10:59 Polychromasia Not Reportable 02/09/21 10:59 Hypochromasia 1+ 02/09/21 10:59 Poikilocytosis Not Reportable 02/09/21 10:59 Anisocytosis Not Reportable 02/09/21 10:59 Microcytosis Not Reportable 02/09/21 10:59 Macrocytosis Not Reportable 02/09/21 10:59 Spherocytes Not Reportable 02/09/21 10:59 Pappenheimer Bodies Not Reportable 02/09/21 10:59 Sickle Cells Not Reportable 02/09/21 10:59 Target Cells Not Reportable 02/09/21 10:59 Tear Drop Cells Not Reportable 02/09/21 10:59 Ovalocytes Not Reportable 02/09/21 10:59 Stomatocytes Few 10/14/20 04:00 Helmet Cells Not Reportable 02/09/21 10:59 Burk-Bell Buckle Bodies Not Reportable 02/09/21 10:59 Maple Rings Not Reportable 02/09/21 10:59 Antoine Cells Not Reportable 02/09/21 10:59 Bite Cells Not Reportable 02/09/21 10:59 Crenated Cell Not Reportable 02/09/21 10:59 Elliptocytes Not Reportable 02/09/21 10:59 Acanthocytes (Spur) Not Reportable 02/09/21 10:59 Rouleaux Not Reportable 02/09/21 10:59 Hemoglobin C Crystals Not Reportable 02/09/21 10:59 Schistocytes Not Reportable 02/09/21 10:59 Malaria parasites Not Reportable 02/09/21 10:59 Sickle Cell Solubility See scanned result 10/04/20 Unknown Hemoglobin A See scanned result 10/04/20 Unknown Hemoglobin A2 See scanned result 10/04/20 Unknown Hemoglobin A2 Prime See scanned result 10/04/20 Unknown Hemoglobin C See scanned result 10/04/20 Unknown Hemoglobin D See scanned result 10/04/20 Unknown Hemoglobin E See scanned result 10/04/20 Unknown Hgb F Diffential Stain See scanned result 10/04/20 Unknown Hemoglobin F Quant See scanned result 10/04/20 Unknown Hemoglobin G See scanned result 10/04/20 Unknown Hemoglobin S See scanned result 10/04/20 Unknown Hemoglobin O-[place] See scanned result 10/04/20 Unknown Hemoglobin Barts See scanned result 10/04/20 Unknown Hemoglobin Analilia See scanned result 10/04/20 Unknown Variant Hemoglobin See scanned result 10/04/20 Unknown Abnorm Hgb IEF Confirm See scanned result 10/04/20 Unknown Hemoglobin Interpret See scanned result 10/04/20 Unknown Hemoglobinopathy Note See scanned result 10/04/20 Unknown Sharad Bodies Not Reportable 02/09/21 10:59 Hem Pathologist Commnt No 02/09/21 10:59 PT 13.6 Sec. (12.2-14.9) 10/21/20 13:54 INR 1.06 (0.87-1.13) 10/21/20 13:54 APTT 31.6 Sec. (24.2-36.6) 10/03/20 00:40 Fibrinogen 336 mg/dl (211-480) 10/04/20 10:00 D-Dimer 1974.47 ng/mlDDU (0-234) H 11/11/20 13:50 ABG pH 7.459 pH Units (7.350-7.450) H 10/26/20 10:30 POC ABG pCO2 20.7 mmHg (32.0-48.0) L 10/13/20 07:18 ABG pCO2 32.4 mm Hg 10/26/20 10:30 POC ABG pO2 137.9 mmHg (83-108) H 10/13/20 07:18 ABG pO2 112.2 mm Hg (80.0-90.0) H 10/26/20 10:30 POC ABG HCO3 14.8 10/13/20 07:18 ABG HCO3 22.5 mmol/L (20.0-26.0) 10/26/20 10:30 ABG O2 Saturation 98.2 % (95.0-99.0) 10/26/20 10:30 ABG O2 Content 18.5 (0.0-44) 10/26/20 10:30 POC ABG Base Excess -6.9 10/13/20 07:18 ABG Base Excess -0.6 mmol/L (-2.0-3.0) 10/26/20 10:30 ABG Hemoglobin 13.5 gm/dl (12.0-16.0) 10/26/20 10:30 ABG Oxyhemoglobin 98.3 (94-98) H 10/13/20 07:18 ABG Carboxyhemoglobin 1.3 % (0.0-5.0) 10/26/20 10:30 ABG Methemoglobin 0.5 % (0.0-1.5) 10/26/20 10:30 ABG Sodium 135.9 mmol/L (136.0-145.0) L 10/13/20 07:18 ABG Potassium 3.7 mmol/L (3.40-4.50) 10/13/20 07:18 ABG Chloride 111.0 mmol/L (98-107) H 10/13/20 07:18 ABG Glucose 109 mg/dL (65-95) H 10/13/20 07:18 VBG pH 6.949 (7.320-7.420) L* 10/02/20 Unknown Oxyhemoglobin 96.5 % (95.0-99.0) 10/26/20 10:30 Carboxyhemoglobin 0.3 (0.5-1.5) L 10/13/20 07:18 FiO2 25 % 10/26/20 10:30 Sodium 144 mmol/L (137-145) 03/04/21 04:46 Potassium 4.2 mmol/L (3.6-5.0) 03/04/21 04:46 Chloride 105.2 mmol/L (98-107) 03/04/21 04:46 Carbon Dioxide 26 mmol/L (22-30) 03/04/21 04:46 Anion Gap 17 mmol/L 03/04/21 04:46 BUN 15 mg/dL (7-17) 03/04/21 04:46 Creatinine 0.5 mg/dL (0.6-1.2) L 03/04/21 04:46 Estimated GFR > 60 ml/min 03/04/21 04:46 BUN/Creatinine Ratio 30 % 03/04/21 04:46 Glucose 96 mg/dL (65-100) 03/04/21 04:46 POC Glucose 103 mg/dL (70-105) 03/09/21 06:03 Random Insulin 43.2 uIU/mL (<=19.6) H 11/02/20 19:19 Proinsulin See scanned result 11/02/20 19:19 C-Peptide 6.23 ng/mL (0.80-3.85) H 11/02/20 19:19 Lactic Acid 1.90 mmol/L (0.7-2.0) 10/04/20 22:00 Uric Acid 7.5 mg/dL (3.5-7.6) 10/02/20 13:05 Calcium 10.0 mg/dL (8.4-10.2) 03/04/21 04:46 Ionized Calcium 4.4 mg/dL (4.8-5.6) L 10/07/20 21:00 Phosphorus 4.60 mg/dL (2.5-4.5) H 11/13/20 10:05 Magnesium 2.10 mg/dL (1.7-2.3) 11/13/20 10:05 Total Bilirubin 0.80 mg/dL (0.1-1.2) 03/04/21 04:46 AST 51 units/L (5-40) H 03/04/21 04:46 ALT 53 units/L (7-56) 03/04/21 04:46 Alkaline Phosphatase 117 units/L (35-129) 03/04/21 04:46 Lactate Dehydrogenase 769 units/L (91-180) H 10/02/20 13:05 C-Reactive Protein 0.70 mg/dL (0.00-1.30) 11/11/20 13:50 NT-Pro-B Natriuret Pep 2788 pg/mL (0-450) H 10/04/20 10:00 Total Protein 8.4 g/dL (6.3-8.2) H 03/04/21 04:46 Albumin 4.2 g/dL (3.9-5) 03/04/21 04:46 Albumin/Globulin Ratio 1.0 % 03/04/21 04:46 Procalcitonin < 0.05 ng/mL (<0.15) 03/02/21 02:30 Arterial Blood Glucose 109 mg/dL (65-95) H 10/13/20 07:18 Arterial Blood Ionized Calcium 4.6 mg/dL (4.6-5.3) 10/13/20 07:18 Urine Color Yellow (Yellow) 01/25/21 09:51 Urine Turbidity Cloudy (Clear) 01/25/21 09:51 Urine pH 7.0 (5.0-7.0) 01/25/21 09:51 Ur Specific [place] 1.011 (1.003-1.030) 01/25/21 09:51 Urine Protein <15 mg/dl mg/dL (Negative) 01/25/21 09:51 Urine Glucose (UA) Neg mg/dL (Negative) 01/25/21 09:51 Urine Ketones Neg mg/dL (Negative) 01/25/21 09:51 Urine Blood Neg (Negative) 01/25/21 09:51 Urine Nitrite Neg (Negative) 01/25/21 09:51 Urine Bilirubin Neg (Negative) 01/25/21 09:51 Urine Urobilinogen < 2.0 mg/dL (<2.0) 01/25/21 09:51 Ur Leukocyte Esterase Neg (Negative) 01/25/21 09:51 Urine WBC (Auto) 6.0 /HPF (0.0-6.0) 01/25/21 09:51 Urine RBC (Auto) 3.0 /HPF (0.0-6.0) 01/25/21 09:51 U Epithel Cells (Auto) < 1.0 /HPF (0-13.0) 01/25/21 09:51 Urine Bacteria (Auto) 1+ /HPF (Negative) 01/18/21 08:47 Urine WBC Clumps 3+ /HPF 11/11/20 13:50 Calcium Oxalate Crystal Few 11/11/20 13:50 Urine Mucus Few /HPF 01/25/21 09:51 Urine Yeast (Budding) 2+ /HPF 01/25/21 09:51 Vancomycin Trough 12.6 ug/mL (5.0-20.0) 10/21/20 13:54 Random Vancomycin 10.7 ug/mL (0-40.0) 10/16/20 13:09 Phenytoin 5.7 ug/mL (10.0-20.0) L 10/13/20 07:00 C. difficile Tox (PCR) Positive (Negative) 10/16/20 10:22 Coronavirus (PCR) Negative (Negative) 10/08/20 14:15 Blood Type O POSITIVE 10/02/20 12:50 Antibody Screen Negative 10/02/20 12:50 Crossmatch See Detail 10/02/20 12:50 - Diagnostic Impressions Diagnostic Impressions: Echocardiogram 10/03/20 13:42 Transthoracic Echocardiogram Indication: S/P Cardiac Arrest R/O Cardiomyopathy BP: 133/71 Conclusions *Global left ventricular systolic function is normal. *The estimated ejection fraction is 60-65%. *There is trace of mitral regurgitation. *The right 0heart chambers are both slightly dilated. *There is mild tricuspid regurgitation. *There is mild-moderate pulmonary hypertension. *The right ventricular systolic pressure is calculated at 44 mmHg. *The study quality is technically difficult. Findings Procedure Info: The study quality is technically difficult. The study is technically limited due to patient body habitus. The study was technically limited due to the patient's inability to lay in the left lateral decubitus position. Left Ventricle: The left ventricular chamber size is normal. There is no left ventricular hypertrophy. Global left ventricular systolic function is normal. The estimated ejection fraction is 60-65%. Left Atrium: The left atrial chamber size is normal. Right Ventricle: The right ventricle is slightly dilated. Right Atrium: The right atrium is mildly dilated. Aortic Valve: The aortic valve leaflets are mildly thickened. There is no evidence of aortic regurgitation. There is no evidence of aortic stenosis. Mitral Valve: The mitral valve leaflets are mildly thickened. There is trace of mitral regurgitation. There is no evidence of mitral stenosis. Tricuspid Valve: There is mild tricuspid regurgitation. The right ventricular systolic pressure is calculated at 44 mmHg. There is evidence of mild pulmonary hypertension. Pulmonic Valve: There is trace pulmonic regurgitation. Pericardium: There is no pericardial effusion. Aorta: There is no dilatation of the ascending aorta. There is no dilatation of the aortic root. Venous: The inferior vena cava is dilated. Measurements Chambers 2D Name Value Normal Range IVSd (2D) 1 cm (0.6 - 1.1) LVPWd (2D) 1.01 cm (0.6 - 1.1) LVIDd (2D) 4.58 cm (3.7 - 5.6) LVIDs (2D) 3.17 cm (2 - 3.8) LV FS (2D) 30.93 % - EF Teichholz (2D) 58.66 % - Ao root diameter (2D) 2.94 cm (2 - 3.7) Volumes/Mass Name Value Normal Range LA ESV SP 4CH (A/L) 72.82 ml - LA ESV SP 2CH (A/L) 66.86 ml - LA ESV BP (A/L) 74.49 ml - LA ESV SP 4CH (MOD) 71.03 ml - LA ESV SP 2CH (MOD) 64.3 ml - LV EDV SP 4CH (MOD) 98.82 ml - LV ESV SP 4CH (MOD) 24.8 ml - EF SP 4CH (MOD) 74.9 % - LV EDV SP 2CH (MOD) 86.1 ml - LV ESV SP 2CH (MOD) 36.93 ml - EF SP 2CH (MOD) 57.11 % - LV EDV BP 94.4 ml - LV ESV BP 32.66 ml - BP EF (MOD) 65.4 % - Diastolic/Systolic Function Name Value Normal Range MV E-wave Vmax 1.04 m/sec - MV deceleration time 160.46 msec - MV A-wave Vmax 0.92 m/sec - MV E:A ratio 1.14 ratio - Aortic Valve Name Value Normal Range AV Vmax 2.12 m/sec - AV VTI 22.37 cm - AV peak gradient 17.95 mmHg - AV mean gradient 7.29 mmHg - LVOT diameter 2.01 cm - LVOT Vmax 1.8 m/sec - LVOT VTI 27.17 cm - LVOT peak gradient 12.91 mmHg - LVOT mean gradient 6.83 mmHg - SV LVOT 86.42 ml - ANITA (continuity Vmax) 2.7 cm2 - ANITA (continuity VTI) 3.86 cm2 - Ascending Ao 3.18 cm - Tricuspid Valve Name Value Normal Range TV E-wave Vmax 0.88 m/sec - TR Vmax 3.01 m/sec - TR peak gradient 36.27 mmHg - RAP 8 mmHg - RVSP 44 mmHg - IVC diameter 2.65 cm (1.2 - 2.3) Pulmonic Valve/Qp:Qs Name Value Normal Range PV Vmax 1.22 m/sec - PV peak gradient 5.91 mmHg - RVOT Vmax 0.87 m/sec - RVOT VTI 13.32 cm - RVOT peak gradient 3 mmHg - PV acceleration time 110.37 msec - [place]/IV: Voiding Method Incontinent IV Catheter Type [Right Foot] INT / Saline Lock IV Catheter Type [Left Forearm Peripheral IV ] IV Catheter Type [Left Wrist] INT / Saline Lock IV Catheter Type [Right Hand] INT / Saline Lock IV Catheter Type [Right INT / Saline Lock Antecubital] IV Catheter Type [Right Upper Mid-line arm] IV Catheter Type [Left Triple Lumen Cath Internal Jugular] IV Catheter Type [Left Hand] Peripheral IV IV Catheter Type [Left Peripheral IV Antecubital] Active Medications - Current Medications Current Medications: Generic Name Dose Route Start Last Admin Trade Name Freq PRN Reason Stop Dose Admin Acetaminophen 650 mg 10/05/20 16:34 03/09/21 09:01 Acetaminophen 325 Mg/10.15 Ml Oral Liqd Unit Dose FEEDTUBE 650 mg Q6H PRN Administration Non Cardiac Pain or Temp>100.5 Albuterol 2.5 mg 11/05/20 13:03 11/06/20 13:04 Albuterol 2.5 Mg/3 Ml Nebu IH 2.5 mg Q4HRT PRN Administration Shortness Of Breath Alprazolam 0.25 mg 01/20/21 13:33 03/08/21 14:13 Alprazolam 0.25 Mg Tab PO 0.25 mg Q8H PRN Administration Anxiety Lipase/Protease/Amylase 1 each 10/05/20 11:09 Lipase 10,500/Protease 25,000/Amylase 43,750 (Units) Dr Barakat FEEDTUBE PRN PRN For Clogged Feeding Tube Enoxaparin Sodium 40 mg 10/22/20 10:00 03/09/21 09:01 Enoxaparin 40 Mg/0.4 Ml Inj SUB-Q 40 mg DAILY ERINN Administration Protocol Famotidine 20 mg 10/07/20 10:00 03/09/21 09:01 Famotidine 20 Mg Tab PO 20 mg BID ERINN Administration Hydrophilic Ointment 1 applic 01/03/21 13:00 02/16/21 09:56 Lip Therapy Vaseline TP 1 applic DIRECT PRN Administration Dry Lips Dextrose 1,000 mls @ 30 mls/hr 01/03/21 12:00 02/11/21 18:44 D5w IV 30 mls/hr DIRECT ERINN Administration Metoprolol Tartrate 50 mg 02/02/21 16:01 03/09/21 09:01 Metoprolol Tartrate 25 Mg Tab PO 50 mg BID ERINN Administration Morphine Sulfate 2 mg 01/20/21 13:33 Morphine 2 Mg/1 Ml Inj IV Q4H PRN Pain, Moderate (4-6) Ondansetron HCl 4 mg 02/10/21 11:38 02/10/21 13:18 Ondansetron 4 Mg/2 Ml Inj IV 4 mg Q4H PRN Administration Nausea And Vomiting Simple Syrup 15 ml 10/05/20 11:09 Simple Syrup 15 Ml FEEDTUBE PRN PRN Hypoglycemia Simple Syrup 30 ml 10/05/20 11:09 Simple Syrup 15 Ml FEEDTUBE PRN PRN Hypoglycemia Sodium Bicarbonate 325 mg 10/05/20 11:09 12/16/20 08:19 Sodium Bicarbonate 325 Mg Tab FEEDTUBE 325 mg PRN PRN Administration For Clogged Feeding Tube Nutrition/Malnutrition Assess - Dietary Evaluation Nutrition/Malnutrition Findings: Nutrition Notes Start: 10/04/20 11:13 Freq: Status: Active Protocol: Document 03/05/21 12:00 AL (Rec: 03/05/21 12:04 AL [id number]) Co-Sign 03/05/21 12:00 LP Nutrition Notes Initial or Follow up Brief Note Other Pertinent Diagnosis s/p cardiac arrest x 2, anoxic brain injury Current Diet Promote at 65ml/hr Subjective/Other Information F/U for TF change. TF was not supposed to change. Error in previous note. Promote 1.0 running at 60 ml/hr. Burn Absent Trauma Absent Nutrition Intervention Anticipated Discharge Needs: Promote at 65 ml/hr Flush 100 ml q4h Follow-Up By: 03/12/21 Additional Comments F/U for stable TF
[2021-03-10] MEDS: METOPROLOL TARTRATE 25 MG TAB PO SCH ×2 (10:17→22:18)
[2021-03-10] MEDS: ENOXAPARIN 40 MG/0.4 ML INJ SUB-Q SCH (10:17)
[2021-03-10] MEDS: ALPRAZolam 0.25 MG TAB PO PRN (10:17)
[2021-03-10] MEDS: FAMOTIDINE 20 MG TAB PO SCH ×2 (10:17→22:17)
[2021-03-10] MEDS ORDERED: HYDROcodone/ACETAMINOPHEN 5-325 MG TAB PO NR (14:57)
[2021-03-11] MEDS: ALPRAZolam 0.25 MG TAB PO PRN ×2 (10:20→15:07)
[2021-03-11] MEDS: ENOXAPARIN 40 MG/0.4 ML INJ SUB-Q SCH (10:20)
[2021-03-11] MEDS: FAMOTIDINE 20 MG TAB PO SCH ×2 (10:20→21:05)
[2021-03-11] MEDS: METOPROLOL TARTRATE 25 MG TAB PO SCH ×2 (10:20→21:05)
[2021-03-12] MEDS: ALPRAZolam 0.25 MG TAB PO PRN ×2 (01:03→09:42)
--- NOTE | 2021-03-12 08:41 | Progress Note ---
Assessment and Plan Assessment and plan: --DIC (disseminated intravascular coagulation) vs HELLP syndrome Resolved --Possible Eclampsia/HELLP Syndrome Resolved --s/p Cardiac arrest x2 on admission and on 10/07 ACLS protocol followed by revival Echo showed preserved Ef --Anoxic brain injury, Developed following cardiac arrest, continue supportive care --Shock-resolved now awaiting placement s/p pressor support --ADOLPH-resolved Stable --Sepsis 2/2 UTI s/p cefepime to cover possible pseudomonas as sputum is also growing GN rods till 01/04/21 Previous urine culture grew pansensitive ecoli Blood cultures from 12/27-no growth --Hypernatremia, resolved, cont free water with TF --DVT prophylaxis Patient presented with DIC No anticoagulants Overall prognosis extremely poor. Daily clinical course 10/02/21 11:30: Pt brought to L&D triage for evaluation of possible labor. Pt accompanied by her spouse. Pt spouse poor historian; unable to obtain history- allergies at this time. Pt taken from registration to triage area via WC. Pt unresponsive, actively seizing with snorous respirations. community outreach director, Kassy, called and requesting assistance. 11:35: Multiple staff at bedside. Pt 02 sat 67% on nonrebreather, unable to read BP at this time. Yifan Theodore CRNA, at bedside for intubation and assistance with IV insertion. INT attempt by multiple RNs unsuccessful at this time. 11:42: Pt being bagged by KORIN, 02% 79%. No pulse palpated, compressions started at this time; bharati young called and Dr. Newberry preparing OR for emergent c/s. 11:44: Continued compressions on stretcher while transporting pt to OR 1. Pt being bagged with jaw thrust manuever in place by KORIN Stringer student. 11:45: Arrival to OR 1. Dr. Newberry and Dr. Portillo present for emergent c/s. Code team arrived for continued care. patient revived and c/s done Patient has been bleeding from C/s site followed by supracervical hysterectomy for severe bleeding Patient transfused multiple units of PRBC, Patient in DIC. Transferred to the [facility] 10/03. Patient seen and examined at bedside this morning. Patient is nonresponsive and mechanically ventilated. On pressors. Labs reviewed-has leukocytosis, anemia, thrombocytopenia, ADOLPH and lactic acidosis. Started on IV antibiotics to cover possible sepsis secondary to DIC. Hematology oncology recommendations appreciated-needs additional cryoprecipitate and FFP. Monitor D-dimer, fibrinogen and frequent labs. Nephrology consulted for lactic acidosis and ADOLPH. 10/04. Remains mechanically ventilated. [place] antibiotics. Labs shows improved acidosis - lactic acid 3.5. Hb drop noted. Getting transfused 2 units PRBCs. Platelet count is ~40k. Continue to monitor labs closely. Critical care team on board. 10/05; xray reviewed, concerning for multifocal infilrate, likely underlying [place], will add ID consult to assist with management of this critically ill patient, start tube feed, closely monitor renal system 10/06: Resumed care, remains on mechanical ventilation. No active bleeding, H&H stable. Continue to monitor CBC and BMP. Continue IV antibiotic for underlying pneumonia. Follow critical care and ID recommendation. 10/07: Remains on mechanical ventilation. No active bleeding, H&H stable. Critical care following, wean off ventilation as tolerated. 10/08: Patient had another cardiac arrest last night. Remains on mechanical ventilation, update family. Continue supportive care -poor prognosis 10/09: Called patient mother and discussed about patient care and management. Answered all question to best of my knowledge and family satisfaction. Patient remains on mechanical ventilation, cardiac arrest x2 so far. Critically sick, poor prognosis 10/10: remains on mechanical ventilation. h/h stable, no active bleeding. monitor CBC/BMP 10/11: WBC trended up with diarrhea, started on vancomycin po. remains on MV, off pressor, tolerating TF 10/12: remains on MV, off pressor, tolerating TF. called family for update but unable to reach, could not leave message as it was full. cont supportive care, wean off vent as tolerated. 10/13/2020; patient is on mechanical ventilation, tolerating tube feeding. Patient has labored breathing. Neuro was consulted and recommend MRI. Patient is on Precedex. Rectal tube in place. 10/14/2020; patient is on mechanical ventilation, Precedex. Patient had fever and blood culture ordered. Patient is on IV vancomycin per ID recommendation. Neuro consulted and recommend MRI. Continue to monitor. Prognosis is guarded. 10/15/2020; patient is on mechanical ventilation, Precedex. Patient had fever and blood culture ordered. Patient is on IV vancomycin per ID recommendation. Neuro consulted and recommend MRI. Continue to monitor. Prognosis is guarded. 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 12/06/20; anoxic brain injury. Awaiting placement. 12/07/2020; anoxic brain injury, awaiting placement. 12/09/2020; anoxic brain injury, awaiting placement. 12/10/2020; patient had episodes of fever overnight. CBC, BMP, blood culture, UA and chest x-ray ordered, will follow and manage accordingly. Urinalysis is suggestive of UTI and I put the patient on ceftriaxone, order urine culture. Chest x-ray is normal. 12/11/2020; patient is on ceftriaxone day 2 for UTI. We will continue to follow urine culture. 12/12/2020. Day #3 of Rocephin for UTI. We will continue for 2 more days while she is here. Present UTI. 12/13/2020. Day #4 of Rocephin for UTI. Patient remains on 50% with tracheost jayne. Remains unresponsive with evidence of anoxic encephalopathy unable to make needs known. 12/14/2020. Day #5 of Rocephin for UTI completed today. Remains encephalopathic unable to make needs known. Remains on 50% unable to decrease oxygen via tracheostomy. Overall prognosis remains extremely poor. 3: Continue to monitor. Stop and monitor antibiotics at this time. Continue to wean oxygen as tolerated. Wean oxygen as tolerated. Case management working on placement. 12/16: Continue supportive care aspiration precautions. Awaiting placement discussion. Monitor fever curve. Prognosis remains poor no evidence of neurological recovery as of today 3: Continue supportive care, check labs and chest xray. Still monitor off antibiotics. Monitor Sodium level 12/18: Patient remains with intermittent low grade fever, reviewed EEG from September again, consistent for Ischemic Hypoxic Encephalopathy, patient with decorticating posturing type presentation. Will discuss with straw hat presser to opt imize diet so we can discontinue D5. CXR with no abnormality. Discussed extensively with the nursing staff at bedside CXR IMPRESSION: 1. No acute findings. 12/19: No clinical change 12/20: No clinical change, now off abx, monitor, discussed her medications with our pharmacist I believe that her posture and rigidity is likely from underlying anoxic encephalopathy. Continue to monitor and await placement decision. Continue aggressive suctioning. Plan discussed in detail with the nursing staff 12/21: Continue supportive care. Will give 500 cc bolus of fluid today to replace insensible losses. Tachycardia appears to be improving. Blood pressure precludes adjusting cardiac meds. Still awaiting placement from case management. Plan discussed in detail with the nursing staff 12/22. Continue support supportive care. Tracheostomy and PEG in place. Remains nonresponsive. Awaiting placement. 12/23. Continue support supportive care. Tracheostomy and PEG in place. Remains nonresponsive. Awaiting placement. Remains tachycardic. Decrease dose of lasix. Will try low dose metoprolol. Monitor BP closely 12/24. Continue support supportive care. Tracheostomy and PEG in place. Remains nonresponsive. Awaiting placement. Heart rate slightly better. Continue to monitor BP closely 12/25. Continue support supportive care. Tracheostomy and PEG in place. Remains nonresponsive. Awaiting placement. 12/26. Continue support supportive care. Tracheostomy and PEG in place. Remains nonresponsive. Awaiting placement 12/27. Continue support supportive care. Tracheostomy and PEG in place. Remains nonresponsive. Awaiting placement 12/28. Had fever yesterday. Blood culture drawn. UA - UTI - started on antibiotics. Now tracheal aspirate is growing GN rods. 12/29: Continue IV antibiotics, continue supportive care. Since admission patient has shown minimal or no chance of neurological recovery. Need 24/7 assistance. Currently on trach and PEG, nonverbal. Waiting on SNF placement. Discussed with behavioral health case manager today. 12/30: Continue IV antibiotics for UTI, continue supportive care. Pending placement 12/31: continue supportive care. continue supportive care. Pending placement 01/01: continue supportive care. Pending placement. cont Iv abx for UTI till 01/04 01/02: Continue supportive care, pending placement. Sodium level slightly elevated, will start hypotonic fluid. Continue antibiotics till 01/04 01/03; cont hypotonic fluid, increase free water with TF for hypernatremia, follow BMP. cont supportive care. pending placement. cont cefepime. recx blood 01/04: resolved hyponatremia, cont supportive care, pending placement. Last day of supplement today. 01/05: Continue supportive care, pending placement. Monitor H&H and fever curve off antibiotic. 01/06; monitor off abx, suction as needed, Continue supportive care, pending placement. 01/07: Discharge pending on placement, vitals stable. Continue supportive care 01/08: Discharge pending on placement, vitals stable. Continue supportive care. stop lasix, increase metoprolol to 25mg BID for ST. 01/09 patient resting with eyes closed. Opens eyes to tactile stimulus, has a blink reflex, does not follow simple commands, has a T-collar / G-tube Lab results reviewed, low-grade fever, 01/10 Eyes open, does not follow simple commands, no acute events overnight 01/11 no acute events overnight Waiting for placement 01/12 No acute events overnight. Patient awaiting for placement 01/13. No new issues. Awaiting placement 01/14. No new issues. Awaiting placement. 01/15. No new issues. Awaiting placement. 01/16. No new issues. Patient remain stable. Awaiting placement. Check maintenance labs. 01/17. Routine maintenance labs were ordered and are still pending. Await placement. 01/18. Patient with low-grade fever past 24-48 hrs. WBC within normal limits. Check chest x-ray, urinalysis and consider blood cultures. Continue tracheostomy care, secretion control and airway management. Patient currently with PEG and tube feedings at 60 cc an hour. Nutritional support and aspiration precautions. 01/19. Temperature 100.7 overnight. Continue to monitor closely. Continue tracheostomy care, secretion control and airway management. Patient currently with PEG and tube feedings at 60 cc an hour. Nutritional support and aspiration precautions. 01/20. Continue to monitor closely. Continue tracheostomy care, secretion control and airway management. Patient currently with PEG and tube feedings at 60 cc an hour. Nutritional support and aspiration precautions. 01/21. Afebrile overnight. Continue to monitor closely. Continue tracheostomy care, secretion control and airway management. Patient currently with PEG and tube feedings at 60 cc an hour. Nutritional support and aspiration precautions. 01/22. Continue to monitor closely. Continue tracheostomy care, secretion control and airway management. Patient currently with PEG and tube feedings at 60 cc an hour. Nutritional support and aspiration precautions. 01/23. Continue tracheostomy care, secretion control and airway management. Patient currently with PEG and tube feedings at 60 cc an hour. Nutritional support and aspiration precautions. Will get routine labs tomorrow. 01/24. Labs reviewed. No abnormalities. Continue tracheostomy care, secretion control and airway management. Patient currently with PEG and tube feedings at 60 cc an hour. Nutritional support and aspiration precautions. 01/25. Temp 100.6. More sleepy today. Will get chest xray, blood culture, urinalysis, sputum cultures. Will start on empirical abx. 01/26: Vitals noted, slightly tachycardic. Follow culture work-up, continue supportive care. 01/27: Spiking low-grade temp, negative UA, sputum culture and recent blood cultures also negative. Continue to monitor off antibiotics. Continue supportive care. Pending placement. 01/28: cont to spike low grade temp, negative UA, sputum culture and recent blood cultures also negative. Continue to monitor off antibiotics. will order fpr sinus xry. Continue supportive care. Pending placement. 01/29: Continue to follow clinically, intermittently spiking low-grade temp, all recent culture work is negative, negative UA, normal respiratory jaylan 1 tracheal aspirate. Vitals noted and currently stable. Pending placement 01/30: Clinically unchanged, continue to monitor vitals, continue supportive cares. Pending placement. Discussed plan of care with RN at the bedside. 01/31 - TODATE: cont supportive care, pending placement. monitor vitals carefully. Discussed with family at the bedside. 02/06. Patient afebrile today. Continue trach care. Secretions stable today. Culture data negative so far. Awaiting placement. 02/07. Awaiting placement awaiting family member to evaluate papers. Continue trach care secretions stable. Pending placement 02/09: Intermittent fever, ?drug related, will check cxr and also labs. No new complaints. 02/10: Patient's trach dislodged today. Nevertheless respiratory status is intact attempt to reinsert was unsuccessful will monitor discussed with nursing staff to pay close attention to the patient. Considering that this was not a planned decannulation I will start the patient on continuous pulse ox until full evaluation was done by pulmonary. 02/13/2021 Vital signs stable Unresponsive secondary to anoxic encephalopathy Awaiting placement 02/14/2021 Awaiting placement 02/15/2021 Anoxic encephalopathy Awaiting placement 02/16/2021 Anoxic encephalopathy Awaiting placement 02/17/2021 Anoxic encephalopathy awaiting placement 02/18/2021 Anoxic encephalopathy awaiting placement 02/19/2021 Anoxic encephalopathy awaiting placement 02/20/2021 Anoxic encephalopathy awaiting placement 02/21/2021 Anoxic encephalopathy awaiting placement 02/22/2021 Anoxic encephalopathy awaiting placement 02/23/2021 Anoxic encephalopathy awaiting placement 02/24/2021 Anoxic encephalopathy awaiting placement 02/25/2021 Anoxic encephalopathy waiting for placement 02/26 Awaiting placement 02/27. Awaiting placement 02/28. No change in medical condition. Awaiting placement 03/01. No medical changes noted. Awaiting placement 03/01. No medical changes noted. Awaiting placement 03/02. Had temperature more than 100 Fahrenheit. Ordered labs and chest x-ray. Labs reviewed. No pna and no leukocytosis. Procalcitonin negative. Blood cultures negative so far. Continue to monitor for now 03/03 - 03/11. No overnight events. Awaiting placement. 03/12. No overnight events awaiting placement History Interval history: 30 year old -[place] female CHE 10/25/20 at 36w5d who presents with seizures in triage on 10/02/20. Pt was not able to provide history but per pt's , she presented to the hospital to return a 24 hour urine specimen for analysis. She then suddenly reported that she did not feel good. She was taken to labor and delivery and shortly after arrival, she began seizing. During this time, a code met was called because the patient became hypoxic. She was then noted to be without a pulse. Chest compressions were started immediately, and the patient was emergently taken to the operating room for delivery of the fetus. Off note, This patient has had care at [facility] with comanagement by [facility] since 11 wks complicated by ADHD, morbid obesity, g eneralized anxiety disorder, panic attacks, chronic narcotic use, fibromyalgia, GERD, Irritable Bowel Syndrome, Migraines, h/o endometrial ablation and ovarian vein embolization, genital herpes, insomnia, LGA fetus, nausea and vomiting, polyhydramnios, quad screen positive for Down's Syndrome, and previous x 3. She was GBS negative. Hospitalist Physical - Constitutional Vitals: Temp Pulse Resp BP Pulse Ox 99.3 F 101 H 18 109/76 99 03/12/21 05:23 03/12/21 05:23 03/12/21 05:23 03/12/21 05:23 03/12/21 05:23 General appearance: Present: well-nourished - EENT Eyes: Present: PERRL, EOM intact ENT: hearing intact, clear oral mucosa, dentition normal - Neck Neck: Present: supple, normal ROM - Respiratory Respiratory effort: normal Respiratory: bilateral: CTA - Cardiovascular Rhythm: regular Heart Sounds: Present: S1 & S2. Absent: gallop, rub - Extremities Extremities: no ischemia, No edema, Full ROM - Abdominal General gastrointestinal: soft, non-tender, non-distended, normal bowel sounds - Integumentary Integumentary: Present: clear, warm, dry - Neurologic Neurologic: CNII-XII intact, moves all extremities HEART Score - HEART Score Age: < 45 Risk factors: 1-2 risk factors - Critical Actions Critical Actions: >7 pts:50-65% risk of adverse cardiac event. Early invasive measures Results - Labs CBC & Chem 7: 03/04/21 04:46 03/04/21 04:46 Labs: Laboratory Last Values WBC 8.6 K/mm3 (4.5-11.0) 03/04/21 04:46 RBC 5.49 M/mm3 (3.65-5.03) H 03/04/21 04:46 Hgb 13.4 gm/dl (10.1-14.3) 03/04/21 04:46 Hgb Comment See scanned result 10/04/20 Unknown Hct 41.0 % (30.3-42.9) 03/04/21 04:46 MCV 75 fl (79-97) L 03/04/21 04:46 MCH 25 pg (28-32) L 03/04/21 04:46 MCHC 33 % (30-34) 03/04/21 04:46 RDW 15.3 % (13.2-15.2) H 03/04/21 04:46 Plt Count 298 K/mm3 (140-440) 03/04/21 04:46 Lymph % (Auto) 30.9 % (13.4-35.0) 03/04/21 04:46 Foster % (Auto) 9.1 % (0.0-7.3) H 03/04/21 04:46 Eos % (Auto) 2.1 % (0.0-4.3) 03/04/21 04:46 Baso % (Auto) 0.3 % (0.0-1.8) 03/04/21 04:46 Lymph # (Auto) 2.7 K/mm3 (1.2-5.4) 03/04/21 04:46 Foster # (Auto) 0.8 K/mm3 (0.0-0.8) 03/04/21 04:46 Eos # (Auto) 0.2 K/mm3 (0.0-0.4) 03/04/21 04:46 Baso # (Auto) 0.0 K/mm3 (0.0-0.1) 03/04/21 04:46 Add Manual Diff Complete 02/09/21 10:59 Total Counted 100 02/09/21 10:59 Seg Neutrophils % 57.6 % (40.0-70.0) 03/04/21 04:46 Seg Neuts % (Manual) 58.0 % (40.0-70.0) 02/09/21 10:59 Band Neutrophils % 2.0 % 10/15/20 05:50 Lymphocytes % (Manual) 29.0 % (13.4-35.0) 02/09/21 10:59 Reactive Lymphs % (Man) 1.0 % 10/02/20 12:18 Monocytes % (Manual) 13.0 % (0.0-7.3) H 02/09/21 10:59 Eosinophils % (Manual) 1.0 % (0.0-4.3) 10/29/20 07:56 Myelocytes % 2.0 % 10/02/20 13:05 Metamyelocytes % 1.0 % 10/14/20 04:00 Nucleated RBC % Not Reportable 02/09/21 10:59 Seg Neutrophils # 4.9 K/mm3 (1.8-7.7) 03/04/21 04:46 Seg Neutrophils # Man 3.7 K/mm3 (1.8-7.7) 02/09/21 10:59 Band Neutrophils # 0.0 K/mm3 02/09/21 10:59 Lymphocytes # (Manual) 1.8 K/mm3 (1.2-5.4) 02/09/21 10:59 Abs React Lymphs (Man) 0.0 K/mm3 02/09/21 10:59 Monocytes # (Manual) 0.8 K/mm3 (0.0-0.8) 02/09/21 10:59 Eosinophils # (Manual) 0.0 K/mm3 (0.0-0.4) 02/09/21 10:59 Basophils # (Manual) 0.0 K/mm3 (0.0-0.1) 02/09/21 10:59 Metamyelocytes # 0.0 K/mm3 02/09/21 10:59 Myelocytes # 0.0 K/mm3 02/09/21 10:59 Promyelocytes # 0.0 K/mm3 02/09/21 10:59 Blast Cells # 0.0 K/mm3 02/09/21 10:59 WBC Morphology Not Reportable 02/09/21 10:59 Hypersegmented Neuts Not Reportable 02/09/21 10:59 Hyposegmented Neuts Not Reportable 02/09/21 10:59 Hypogranular Neuts Not Reportable 02/09/21 10:59 Smudge Cells Not Reportable 02/09/21 10:59 Toxic Granulation Not Reportable 02/09/21 10:59 Toxic Vacuolation Not Reportable 02/09/21 10:59 Dohle Bodies Not Reportable 02/09/21 10:59 Pelger-Huet Anomaly Not Reportable 02/09/21 10:59 Ester Rods Not Reportable 02/09/21 10:59 Platelet Estimate Consistent w auto 02/09/21 10:59 Clumped Platelets Not Reportable 02/09/21 10:59 Plt Clumps, EDTA Not Reportable 02/09/21 10:59 Large Platelets Few 02/09/21 10:59 Giant Platelets Not Reportable 02/09/21 10:59 Platelet Satelliting Not Reportable 02/09/21 10:59 Plt Morphology Comment Not Reportable 02/09/21 10:59 RBC Morphology Not Reportable 02/09/21 10:59 Dimorphic RBCs Not Reportable 02/09/21 10:59 Polychromasia Not Reportable 02/09/21 10:59 Hypochromasia 1+ 02/09/21 10:59 Poikilocytosis Not Reportable 02/09/21 10:59 Anisocytosis Not Reportable 02/09/21 10:59 Microcytosis Not Reportable 02/09/21 10:59 Macrocytosis Not Reportable 02/09/21 10:59 Spherocytes Not Reportable 02/09/21 10:59 Pappenheimer Bodies Not Reportable 02/09/21 10:59 Sickle Cells Not Reportable 02/09/21 10:59 Target Cells Not Reportable 02/09/21 10:59 Tear Drop Cells Not Reportable 02/09/21 10:59 Ovalocytes Not Reportable 02/09/21 10:59 Stomatocytes Few 10/14/20 04:00 Helmet Cells Not Reportable 02/09/21 10:59 Burk-[place] Bodies Not Reportable 02/09/21 10:59 [place] Rings Not Reportable 02/09/21 10:59 Antoine Cells Not Reportable 02/09/21 10:59 Bite Cells Not Reportable 02/09/21 10:59 Crenated Cell Not Reportable 02/09/21 10:59 Elliptocytes Not Reportable 02/09/21 10:59 Acanthocytes (Spur) Not Reportable 02/09/21 10:59 Rouleaux Not Reportable 02/09/21 10:59 Hemoglobin C Crystals Not Reportable 02/09/21 10:59 Schistocytes Not Reportable 02/09/21 10:59 Malaria parasites Not Reportable 02/09/21 10:59 Sickle Cell Solubility See scanned result 10/04/20 Unknown Hemoglobin A See scanned result 10/04/20 Unknown Hemoglobin A2 See scanned result 10/04/20 Unknown Hemoglobin A2 Prime See scanned result 10/04/20 Unknown Hemoglobin C See scanned result 10/04/20 Unknown Hemoglobin D See scanned result 10/04/20 Unknown Hemoglobin E See scanned result 10/04/20 Unknown Hgb F Diffential Stain See scanned result 10/04/20 Unknown Hemoglobin F Quant See scanned result 10/04/20 Unknown Hemoglobin G See scanned result 10/04/20 Unknown Hemoglobin S See scanned result 10/04/20 Unknown Hemoglobin O-Interior See scanned result 10/04/20 Unknown Hemoglobin [place] See scanned result 10/04/20 Unknown Hemoglobin Analilia See scanned result 10/04/20 Unknown Variant Hemoglobin See scanned result 10/04/20 Unknown Abnorm Hgb IEF Confirm See scanned result 10/04/20 Unknown Hemoglobin Interpret See scanned result 10/04/20 Unknown Hemoglobinopathy Note See scanned result 10/04/20 Unknown Hsarad Bodies Not Reportable 02/09/21 10:59 Hem Pathologist Commnt No 02/09/21 10:59 PT 13.6 Sec. (12.2-14.9) 10/21/20 13:54 INR 1.06 (0.87-1.13) 10/21/20 13:54 APTT 31.6 Sec. (24.2-36.6) 10/03/20 00:40 Fibrinogen 336 mg/dl (211-480) 10/04/20 10:00 D-Dimer 1974.47 ng/mlDDU (0-234) H 11/11/20 13:50 ABG pH 7.459 pH Units (7.350-7.450) H 10/26/20 10:30 POC ABG pCO2 20.7 mmHg (32.0-48.0) L 10/13/20 07:18 ABG pCO2 32.4 mm Hg 10/26/20 10:30 POC ABG pO2 137.9 mmHg (83-108) H 10/13/20 07:18 ABG pO2 112.2 mm Hg (80.0-90.0) H 10/26/20 10:30 POC ABG HCO3 14.8 10/13/20 07:18 ABG HCO3 22.5 mmol/L (20.0-26.0) 10/26/20 10:30 ABG O2 Saturation 98.2 % (95.0-99.0) 10/26/20 10:30 ABG O2 Content 18.5 (0.0-44) 10/26/20 10:30 POC ABG Base Excess -6.9 10/13/20 07:18 ABG Base Excess -0.6 mmol/L (-2.0-3.0) 10/26/20 10:30 ABG Hemoglobin 13.5 gm/dl (12.0-16.0) 10/26/20 10:30 ABG Oxyhemoglobin 98.3 (94-98) H 10/13/20 07:18 ABG Carboxyhemoglobin 1.3 % (0.0-5.0) 10/26/20 10:30 ABG Methemoglobin 0.5 % (0.0-1.5) 10/26/20 10:30 ABG Sodium 135.9 mmol/L (136.0-145.0) L 10/13/20 07:18 ABG Potassium 3.7 mmol/L (3.40-4.50) 10/13/20 07:18 ABG Chloride 111.0 mmol/L (98-107) H 10/13/20 07:18 ABG Glucose 109 mg/dL (65-95) H 10/13/20 07:18 VBG pH 6.949 (7.320-7.420) L* 10/02/20 Unknown Oxyhemoglobin 96.5 % (95.0-99.0) 10/26/20 10:30 Carboxyhemoglobin 0.3 (0.5-1.5) L 10/13/20 07:18 FiO2 25 % 10/26/20 10:30 Sodium 144 mmol/L (137-145) 03/04/21 04:46 Potassium 4.2 mmol/L (3.6-5.0) 03/04/21 04:46 Chloride 105.2 mmol/L (98-107) 03/04/21 04:46 Carbon Dioxide 26 mmol/L (22-30) 03/04/21 04:46 Anion Gap 17 mmol/L 03/04/21 04:46 BUN 15 mg/dL (7-17) 03/04/21 04:46 Creatinine 0.5 mg/dL (0.6-1.2) L 03/04/21 04:46 Estimated GFR > 60 ml/min 03/04/21 04:46 BUN/Creatinine Ratio 30 % 03/04/21 04:46 Glucose 96 mg/dL (65-100) 03/04/21 04:46 POC Glucose 96 mg/dL (70-105) 03/11/21 23:47 Random Insulin 43.2 uIU/mL (<=19.6) H 11/02/20 19:19 Proinsulin See scanned result 11/02/20 19:19 C-Peptide 6.23 ng/mL (0.80-3.85) H 11/02/20 19:19 Lactic Acid 1.90 mmol/L (0.7-2.0) 10/04/20 22:00 Uric Acid 7.5 mg/dL (3.5-7.6) 10/02/20 13:05 Calcium 10.0 mg/dL (8.4-10.2) 03/04/21 04:46 Ionized Calcium 4.4 mg/dL (4.8-5.6) L 10/07/20 21:00 Phosphorus 4.60 mg/dL (2.5-4.5) H 11/13/20 10:05 Magnesium 2.10 mg/dL (1.7-2.3) 11/13/20 10:05 Total Bilirubin 0.80 mg/dL (0.1-1.2) 03/04/21 04:46 AST 51 units/L (5-40) H 03/04/21 04:46 ALT 53 units/L (7-56) 03/04/21 04:46 Alkaline Phosphatase 117 units/L (35-129) 03/04/21 04:46 Lactate Dehydrogenase 769 units/L (91-180) H 10/02/20 13:05 C-Reactive Protein 0.70 mg/dL (0.00-1.30) 11/11/20 13:50 NT-Pro-B Natriuret Pep 2788 pg/mL (0-450) H 10/04/20 10:00 Total Protein 8.4 g/dL (6.3-8.2) H 03/04/21 04:46 Albumin 4.2 g/dL (3.9-5) 03/04/21 04:46 Albumin/Globulin Ratio 1.0 % 03/04/21 04:46 Procalcitonin < 0.05 ng/mL (<0.15) 03/02/21 02:30 Arterial Blood Glucose 109 mg/dL (65-95) H 10/13/20 07:18 Arterial Blood Ionized Calcium 4.6 mg/dL (4.6-5.3) 10/13/20 07:18 Urine Color Yellow (Yellow) 01/25/21 09:51 Urine Turbidity Cloudy (Clear) 01/25/21 09:51 Urine pH 7.0 (5.0-7.0) 01/25/21 09:51 Ur Specific Nucla 1.011 (1.003-1.030) 01/25/21 09:51 Urine Protein <15 mg/dl mg/dL (Negative) 01/25/21 09:51 Urine Glucose (UA) Neg mg/dL (Negative) 01/25/21 09:51 Urine Ketones Neg mg/dL (Negative) 01/25/21 09:51 Urine Blood Neg (Negative) 01/25/21 09:51 Urine Nitrite Neg (Negative) 01/25/21 09:51 Urine Bilirubin Neg (Negative) 01/25/21 09:51 Urine Urobilinogen < 2.0 mg/dL (<2.0) 01/25/21 09:51 Ur Leukocyte Esterase Neg (Negative) 01/25/21 09:51 Urine WBC (Auto) 6.0 /HPF (0.0-6.0) 01/25/21 09:51 Urine RBC (Auto) 3.0 /HPF (0.0-6.0) 01/25/21 09:51 U Epithel Cells (Auto) < 1.0 /HPF (0-13.0) 01/25/21 09:51 Urine Bacteria (Auto) 1+ /HPF (Negative) 01/18/21 08:47 Urine WBC Clumps 3+ /HPF 11/11/20 13:50 Calcium Oxalate Crystal Few 11/11/20 13:50 Urine Mucus Few /HPF 01/25/21 09:51 Urine Yeast (Budding) 2+ /HPF 01/25/21 09:51 Vancomycin Trough 12.6 ug/mL (5.0-20.0) 10/21/20 13:54 Random Vancomycin 10.7 ug/mL (0-40.0) 10/16/20 13:09 Phenytoin 5.7 ug/mL (10.0-20.0) L 10/13/20 07:00 C. difficile Tox (PCR) Positive (Negative) 10/16/20 10:22 Coronavirus (PCR) Negative (Negative) 10/08/20 14:15 Blood Type O POSITIVE 10/02/20 12:50 Antibody Screen Negative 10/02/20 12:50 Crossmatch See Detail 10/02/20 12:50 - Diagnostic Impressions Diagnostic Impressions: Echocardiogram 10/03/20 13:42 Transthoracic Echocardiogram Indication: S/P Cardiac Arrest R/O Cardiomyopathy BP: 133/71 Conclusions *Global left ventricular systolic function is normal. *The estimated ejection fraction is 60-65%. *There is trace of mitral regurgitation. *The right 0heart chambers are both slightly dilated. *There is mild tricuspid regurgitation. *There is mild-moderate pulmonary hypertension. *The right ventricular systolic pressure is calculated at 44 mmHg. *The study quality is technically difficult. Findings Procedure Info: The study quality is technically difficult. The study is technically limited due to patient body habitus. The study was technically limited due to the patient's inability to lay in the left lateral decubitus position. Left Ventricle: The left ventricular chamber size is normal. There is no left ventricular hypertrophy. Global left ventricular systolic function is normal. The estimated ejection fraction is 60-65%. Left Atrium: The left atrial chamber size is normal. Right Ventricle: The right ventricle is slightly dilated. Right Atrium: The right atrium is mildly dilated. Aortic Valve: The aortic valve leaflets are mildly thickened. There is no evidence of aortic regurgitation. There is no evidence of aortic stenosis. Mitral Valve: The mitral valve leaflets are mildly thickened. There is trace of mitral regurgitation. There is no evidence of mitral stenosis. Tricuspid Valve: There is mild tricuspid regurgitation. The right ventricular systolic pressure is calculated at 44 mmHg. There is evidence of mild pulmonary hypertension. Pulmonic Valve: There is trace pulmonic regurgitation. Pericardium: There is no pericardial effusion. Aorta: There is no dilatation of the ascending aorta. There is no dilatation of the aortic root. Venous: The inferior vena cava is dilated. Measurements Chambers 2D Name Value Normal Range IVSd (2D) 1 cm (0.6 - 1.1) LVPWd (2D) 1.01 cm (0.6 - 1.1) LVIDd (2D) 4.58 cm (3.7 - 5.6) LVIDs (2D) 3.17 cm (2 - 3.8) LV FS (2D) 30.93 % - EF Teichholz (2D) 58.66 % - Ao root diameter (2D) 2.94 cm (2 - 3.7) Volumes/Mass Name Value Normal Range LA ESV SP 4CH (A/L) 72.82 ml - LA ESV SP 2CH (A/L) 66.86 ml - LA ESV BP (A/L) 74.49 ml - LA ESV SP 4CH (MOD) 71.03 ml - LA ESV SP 2CH (MOD) 64.3 ml - LV EDV SP 4CH (MOD) 98.82 ml - LV ESV SP 4CH (MOD) 24.8 ml - EF SP 4CH (MOD) 74.9 % - LV EDV SP 2CH (MOD) 86.1 ml - LV ESV SP 2CH (MOD) 36.93 ml - EF SP 2CH (MOD) 57.11 % - LV EDV BP 94.4 ml - LV ESV BP 32.66 ml - BP EF (MOD) 65.4 % - Diastolic/Systolic Function Name Value Normal Range MV E-wave Vmax 1.04 m/sec - MV deceleration time 160.46 msec - MV A-wave Vmax 0.92 m/sec - MV E:A ratio 1.14 ratio - Aortic Valve Name Value Normal Range AV Vmax 2.12 m/sec - AV VTI 22.37 cm - AV peak gradient 17.95 mmHg - AV mean gradient 7.29 mmHg - LVOT diameter 2.01 cm - LVOT Vmax 1.8 m/sec - LVOT VTI 27.17 cm - LVOT peak gradient 12.91 mmHg - LVOT mean gradient 6.83 mmHg - SV LVOT 86.42 ml - ANITA (continuity Vmax) 2.7 cm2 - ANITA (continuity VTI) 3.86 cm2 - Ascending Ao 3.18 cm - Tricuspid Valve Name Value Normal Range TV E-wave Vmax 0.88 m/sec - TR Vmax 3.01 m/sec - TR peak gradient 36.27 mmHg - RAP 8 mmHg - RVSP 44 mmHg - IVC diameter 2.65 cm (1.2 - 2.3) Pulmonic Valve/Qp:Qs Name Value Normal Range PV Vmax 1.22 m/sec - PV peak gradient 5.91 mmHg - RVOT Vmax 0.87 m/sec - RVOT VTI 13.32 cm - RVOT peak gradient 3 mmHg - PV acceleration time 110.37 msec - [place]/IV: Voiding Method Incontinent IV Catheter Type [Right Foot] INT / Saline Lock IV Catheter Type [Left Forearm Peripheral IV ] IV Catheter Type [Left Wrist] INT / Saline Lock IV Catheter Type [Right Hand] INT / Saline Lock IV Catheter Type [Right INT / Saline Lock Antecubital] IV Catheter Type [Right Upper Mid-line arm] IV Catheter Type [Left Triple Lumen Cath Internal Jugular] IV Catheter Type [Left Hand] Peripheral IV IV Catheter Type [Left Peripheral IV Antecubital] Active Medications - Current Medications Current Medications: Generic Name Dose Route Start Last Admin Trade Name Freq PRN Reason Stop Dose Admin Acetaminophen 650 mg 10/05/20 16:34 03/09/21 09:01 Acetaminophen 325 Mg/10.15 Ml Oral Liqd Unit Dose FEEDTUBE 650 mg Q6H PRN Administration Non Cardiac Pain or Temp>100.5 Albuterol 2.5 mg 11/05/20 13:03 11/06/20 13:04 Albuterol 2.5 Mg/3 Ml Nebu IH 2.5 mg Q4HRT PRN Administration Shortness Of Breath Alprazolam 0.25 mg 01/20/21 13:33 03/12/21 01:03 Alprazolam 0.25 Mg Tab PO 0.25 mg Q8H PRN Administration Anxiety Lipase/Protease/Amylase 1 each 10/05/20 11:09 Lipase 10,500/Protease 25,000/Amylase 43,750 (Units) Dr Barakat FEEDTUBE PRN PRN For Clogged Feeding Tube Enoxaparin Sodium 40 mg 10/22/20 10:00 03/11/21 10:20 Enoxaparin 40 Mg/0.4 Ml Inj SUB-Q 40 mg DAILY ERINN Administration Protocol Famotidine 20 mg 10/07/20 10:00 03/11/21 21:05 Famotidine 20 Mg Tab PO 20 mg BID ERINN Administration Hydrophilic Ointment 1 applic 01/03/21 13:00 02/16/21 09:56 Lip Therapy Vaseline TP 1 applic DIRECT PRN Administration Dry Lips Dextrose 1,000 mls @ 30 mls/hr 01/03/21 12:00 02/11/21 18:44 D5w IV 30 mls/hr DIRECT ERINN Administration Metoprolol Tartrate 50 mg 02/02/21 16:01 03/11/21 21:05 Metoprolol Tartrate 25 Mg Tab PO 50 mg BID ERINN Administration Morphine Sulfate 2 mg 01/20/21 13:33 Morphine 2 Mg/1 Ml Inj IV Q4H PRN Pain, Moderate (4-6) Ondansetron HCl 4 mg 02/10/21 11:38 02/10/21 13:18 Ondansetron 4 Mg/2 Ml Inj IV 4 mg Q4H PRN Administration Nausea And Vomiting Simple Syrup 15 ml 10/05/20 11:09 Simple Syrup 15 Ml FEEDTUBE PRN PRN Hypoglycemia Simple Syrup 30 ml 10/05/20 11:09 Simple Syrup 15 Ml FEEDTUBE PRN PRN Hypoglycemia Sodium Bicarbonate 325 mg 10/05/20 11:09 12/16/20 08:19 Sodium Bicarbonate 325 Mg Tab FEEDTUBE 325 mg PRN PRN Administration For Clogged Feeding Tube Nutrition/Malnutrition Assess - Dietary Evaluation Nutrition/Malnutrition Findings: Nutrition Notes Start: 10/04/20 11:13 Freq: Status: Active Protocol: Document 03/05/21 12:00 AL (Rec: 03/05/21 12:04 AL [id number]) Co-Sign 03/05/21 12:00 LP Nutrition Notes Initial or Follow up Brief Note Other Pertinent Diagnosis s/p cardiac arrest x 2, anoxic brain injury Current Diet Promote at 65ml/hr Subjective/Other Information F/U for TF change. TF was not supposed to change. Error in previous note. Promote 1.0 running at 60 ml/hr. Burn Absent Trauma Absent Nutrition Intervention Anticipated Discharge Needs: Promote at 65 ml/hr Flush 100 ml q4h Follow-Up By: 03/12/21 Additional Comments F/U for stable TF
[2021-03-12] MEDS: FAMOTIDINE 20 MG TAB PO SCH ×2 (09:42→22:08)
[2021-03-12] MEDS: METOPROLOL TARTRATE 25 MG TAB PO SCH ×2 (09:42→22:09)
[2021-03-12] MEDS: ENOXAPARIN 40 MG/0.4 ML INJ SUB-Q SCH (09:42)
--- NOTE | 2021-03-13 08:36 | Progress Note ---
Assessment and Plan Assessment and plan: --DIC (disseminated intravascular coagulation) vs HELLP syndrome Resolved --Possible Eclampsia/HELLP Syndrome Resolved --s/p Cardiac arrest x2 on admission and on 10/07 ACLS protocol followed by revival Echo showed preserved Ef --Anoxic brain injury, Developed following cardiac arrest, continue supportive care --Shock-resolved now awaiting placement s/p pressor support --ADOLPH-resolved Stable --Sepsis 2/2 UTI s/p cefepime to cover possible pseudomonas as sputum is also growing GN rods till 01/04/21 Previous urine culture grew pansensitive ecoli Blood cultures from 12/27-no growth --Hypernatremia, resolved, cont free water with TF --DVT prophylaxis Patient presented with DIC No anticoagulants Overall prognosis extremely poor. Daily clinical course 10/02/21 11:30: Pt brought to L&D triage for evaluation of possible labor. Pt accompanied by her spouse. Pt spouse poor historian; unable to obtain history- allergies at this time. Pt taken from registration to triage area via WC. Pt unresponsive, actively seizing with snorous respirations. elementary principal, Kassy, called and requesting assistance. 11:35: Multiple staff at bedside. Pt 02 sat 67% on nonrebreather, unable to read BP at this time. Yifan Theodore CRNA, at bedside for intubation and assistance with IV insertion. INT attempt by multiple RNs unsuccessful at this time. 11:42: Pt being bagged by KORIN, 02% 79%. No pulse palpated, compressions started at this time; bharati young called and Dr. Newberry preparing OR for emergent c/s. 11:44: Continued compressions on stretcher while transporting pt to OR 1. Pt being bagged with jaw thrust manuever in place by KORIN Stringer student. 11:45: Arrival to OR 1. Dr. Newberry and Dr. Portillo present for emergent c/s. Code team arrived for continued care. patient revived and c/s done Patient has been bleeding from C/s site followed by supracervical hysterectomy for severe bleeding Patient transfused multiple units of PRBC, Patient in DIC. Transferred to the [facility] 10/03. Patient seen and examined at bedside this morning. Patient is nonresponsive and mechanically ventilated. On pressors. Labs reviewed-has leukocytosis, anemia, thrombocytopenia, ADOLPH and lactic acidosis. Started on IV antibiotics to cover possible sepsis secondary to DIC. Hematology oncology recommendations appreciated-needs additional cryoprecipitate and FFP. Monitor D-dimer, fibrinogen and frequent labs. Nephrology consulted for lactic acidosis and ADOLPH. 10/04. Remains mechanically ventilated. [place] antibiotics. Labs shows improved acidosis - lactic acid 3.5. Hb drop noted. Getting transfused 2 units PRBCs. Platelet count is ~40k. Continue to monitor labs closely. Critical care team on board. 10/05; xray reviewed, concerning for multifocal infilrate, likely underlying Pne [place], will add ID consult to assist with management of this critically ill patient, start tube feed, closely monitor renal system 10/06: Resumed care, remains on mechanical ventilation. No active bleeding, H&H stable. Continue to monitor CBC and BMP. Continue IV antibiotic for underlying pneumonia. Follow critical care and ID recommendation. 10/07: Remains on mechanical ventilation. No active bleeding, H&H stable. Critical care following, wean off ventilation as tolerated. 10/08: Patient had another cardiac arrest last night. Remains on mechanical ventilation, update family. Continue supportive care -poor prognosis 10/09: Called patient mother and discussed about patient care and management. Answered all question to best of my knowledge and family satisfaction. Patient remains on mechanical ventilation, cardiac arrest x2 so far. Critically sick, poor prognosis 10/10: remains on mechanical ventilation. h/h stable, no active bleeding. monitor CBC/BMP 10/11: WBC trended up with diarrhea, started on vancomycin po. remains on MV, off pressor, tolerating TF 10/12: remains on MV, off pressor, tolerating TF. called family for update but unable to reach, could not leave message as it was full. cont supportive care, wean off vent as tolerated. 10/13/2020; patient is on mechanical ventilation, tolerating tube feeding. Patient has labored breathing. Neuro was consulted and recommend MRI. Patient is on Precedex. Rectal tube in place. 10/14/2020; patient is on mechanical ventilation, Precedex. Patient had fever and blood culture ordered. Patient is on IV vancomycin per ID recommendation. Neuro consulted and recommend MRI. Continue to monitor. Prognosis is guarded. 10/15/2020; patient is on mechanical ventilation, Precedex. Patient had fever and blood culture ordered. Patient is on IV vancomycin per ID recommendation. Neuro consulted and recommend MRI. Continue to monitor. Prognosis is guarded. 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 12/06/20; anoxic brain injury. Awaiting placement. 12/07/2020; anoxic brain injury, awaiting placement. 12/09/2020; anoxic brain injury, awaiting placement. 12/10/2020; patient had episodes of fever overnight. CBC, BMP, blood culture, UA and chest x-ray ordered, will follow and manage accordingly. Urinalysis is suggestive of UTI and I put the patient on ceftriaxone, order urine culture. Chest x-ray is normal. 12/11/2020; patient is on ceftriaxone day 2 for UTI. We will continue to follow urine culture. 12/12/2020. Day #3 of Rocephin for UTI. We will continue for 2 more days while she is here. Present UTI. 12/13/2020. Day #4 of Rocephin for UTI. Patient remains on 50% with tracheost jayne. Remains unresponsive with evidence of anoxic encephalopathy unable to make needs known. 12/14/2020. Day #5 of Rocephin for UTI completed today. Remains encephalopathic unable to make needs known. Remains on 50% unable to decrease oxygen via tracheostomy. Overall prognosis remains extremely poor. 3: Continue to monitor. Stop and monitor antibiotics at this time. Continue to wean oxygen as tolerated. Wean oxygen as tolerated. Case management working on placement. 12/16: Continue supportive care aspiration precautions. Awaiting placement discussion. Monitor fever curve. Prognosis remains poor no evidence of neurological recovery as of today 3: Continue supportive care, check labs and chest xray. Still monitor off antibiotics. Monitor Sodium level 12/18: Patient remains with intermittent low grade fever, reviewed EEG from September again, consistent for Ischemic Hypoxic Encephalopathy, patient with decorticating posturing type presentation. Will discuss with riverboat captain to opt imize diet so we can discontinue D5. CXR with no abnormality. Discussed extensively with the nursing staff at bedside CXR IMPRESSION: 1. No acute findings. 12/19: No clinical change 12/20: No clinical change, now off abx, monitor, discussed her medications with our pharmacist I believe that her posture and rigidity is likely from underlying anoxic encephalopathy. Continue to monitor and await placement decision. Continue aggressive suctioning. Plan discussed in detail with the nursing staff 12/21: Continue supportive care. Will give 500 cc bolus of fluid today to replace insensible losses. Tachycardia appears to be improving. Blood pressure precludes adjusting cardiac meds. Still awaiting placement from case management. Plan discussed in detail with the nursing staff 12/22. Continue support supportive care. Tracheostomy and PEG in place. Remains nonresponsive. Awaiting placement. 12/23. Continue support supportive care. Tracheostomy and PEG in place. Remains nonresponsive. Awaiting placement. Remains tachycardic. Decrease dose of lasix. Will try low dose metoprolol. Monitor BP closely 12/24. Continue support supportive care. Tracheostomy and PEG in place. Remains nonresponsive. Awaiting placement. Heart rate slightly better. Continue to monitor BP closely 12/25. Continue support supportive care. Tracheostomy and PEG in place. Remains nonresponsive. Awaiting placement. 12/26. Continue support supportive care. Tracheostomy and PEG in place. Remains nonresponsive. Awaiting placement 12/27. Continue support supportive care. Tracheostomy and PEG in place. Remains nonresponsive. Awaiting placement 12/28. Had fever yesterday. Blood culture drawn. UA - UTI - started on antibiotics. Now tracheal aspirate is growing GN rods. 12/29: Continue IV antibiotics, continue supportive care. Since admission patient has shown minimal or no chance of neurological recovery. Need 24/7 assistance. Currently on trach and PEG, nonverbal. Waiting on SNF placement. Discussed with child support case officer today. 12/30: Continue IV antibiotics for UTI, continue supportive care. Pending placement 12/31: continue supportive care. continue supportive care. Pending placement 01/01: continue supportive care. Pending placement. cont Iv abx for UTI till 01/04 01/02: Continue supportive care, pending placement. Sodium level slightly elevated, will start hypotonic fluid. Continue antibiotics till 01/04 01/03; cont hypotonic fluid, increase free water with TF for hypernatremia, follow BMP. cont supportive care. pending placement. cont cefepime. recx blood 01/04: resolved hyponatremia, cont supportive care, pending placement. Last day of supplement today. 01/05: Continue supportive care, pending placement. Monitor H&H and fever curve off antibiotic. 01/06; monitor off abx, suction as needed, Continue supportive care, pending placement. 01/07: Discharge pending on placement, vitals stable. Continue supportive care 01/08: Discharge pending on placement, vitals stable. Continue supportive care. stop lasix, increase metoprolol to 25mg BID for ST. 01/09 patient resting with eyes closed. Opens eyes to tactile stimulus, has a blink reflex, does not follow simple commands, has a T-collar / G-tube Lab results reviewed, low-grade fever, 01/10 Eyes open, does not follow simple commands, no acute events overnight 01/11 no acute events overnight Waiting for placement 01/12 No acute events overnight. Patient awaiting for placement 01/13. No new issues. Awaiting placement 01/14. No new issues. Awaiting placement. 01/15. No new issues. Awaiting placement. 01/16. No new issues. Patient remain stable. Awaiting placement. Check maintenance labs. 01/17. Routine maintenance labs were ordered and are still pending. Await placement. 01/18. Patient with low-grade fever past 24-48 hrs. WBC within normal limits. Check chest x-ray, urinalysis and consider blood cultures. Continue tracheostomy care, secretion control and airway management. Patient currently with PEG and tube feedings at 60 cc an hour. Nutritional support and aspiration precautions. 01/19. Temperature 100.7 overnight. Continue to monitor closely. Continue tracheostomy care, secretion control and airway management. Patient currently with PEG and tube feedings at 60 cc an hour. Nutritional support and aspiration precautions. 01/20. Continue to monitor closely. Continue tracheostomy care, secretion control and airway management. Patient currently with PEG and tube feedings at 60 cc an hour. Nutritional support and aspiration precautions. 01/21. Afebrile overnight. Continue to monitor closely. Continue tracheostomy care, secretion control and airway management. Patient currently with PEG and tube feedings at 60 cc an hour. Nutritional support and aspiration precautions. 01/22. Continue to monitor closely. Continue tracheostomy care, secretion control and airway management. Patient currently with PEG and tube feedings at 60 cc an hour. Nutritional support and aspiration precautions. 01/23. Continue tracheostomy care, secretion control and airway management. Patient currently with PEG and tube feedings at 60 cc an hour. Nutritional support and aspiration precautions. Will get routine labs tomorrow. 01/24. Labs reviewed. No abnormalities. Continue tracheostomy care, secretion control and airway management. Patient currently with PEG and tube feedings at 60 cc an hour. Nutritional support and aspiration precautions. 01/25. Temp 100.6. More sleepy today. Will get chest xray, blood culture, urinalysis, sputum cultures. Will start on empirical abx. 01/26: Vitals noted, slightly tachycardic. Follow culture work-up, continue supportive care. 01/27: Spiking low-grade temp, negative UA, sputum culture and recent blood cultures also negative. Continue to monitor off antibiotics. Continue supportive care. Pending placement. 01/28: cont to spike low grade temp, negative UA, sputum culture and recent blood cultures also negative. Continue to monitor off antibiotics. will order fpr sinus xry. Continue supportive care. Pending placement. 01/29: Continue to follow clinically, intermittently spiking low-grade temp, all recent culture work is negative, negative UA, normal respiratory jaylan 1 tracheal aspirate. Vitals noted and currently stable. Pending placement 01/30: Clinically unchanged, continue to monitor vitals, continue supportive cares. Pending placement. Discussed plan of care with RN at the bedside. 01/31 - TODATE: cont supportive care, pending placement. monitor vitals carefully. Discussed with family at the bedside. 02/06. Patient afebrile today. Continue trach care. Secretions stable today. Culture data negative so far. Awaiting placement. 02/07. Awaiting placement awaiting family member to evaluate papers. Continue trach care secretions stable. Pending placement 02/09: Intermittent fever, ?drug related, will check cxr and also labs. No new complaints. 02/10: Patient's trach dislodged today. Nevertheless respiratory status is intact attempt to reinsert was unsuccessful will monitor discussed with nursing staff to pay close attention to the patient. Considering that this was not a planned decannulation I will start the patient on continuous pulse ox until full evaluation was done by pulmonary. 02/13/2021 Vital signs stable Unresponsive secondary to anoxic encephalopathy Awaiting placement 02/14/2021 Awaiting placement 02/15/2021 Anoxic encephalopathy Awaiting placement 02/16/2021 Anoxic encephalopathy Awaiting placement 02/17/2021 Anoxic encephalopathy awaiting placement 02/18/2021 Anoxic encephalopathy awaiting placement 02/19/2021 Anoxic encephalopathy awaiting placement 02/20/2021 Anoxic encephalopathy awaiting placement 02/21/2021 Anoxic encephalopathy awaiting placement 02/22/2021 Anoxic encephalopathy awaiting placement 02/23/2021 Anoxic encephalopathy awaiting placement 02/24/2021 Anoxic encephalopathy awaiting placement 02/25/2021 Anoxic encephalopathy waiting for placement 02/26 Awaiting placement 02/27. Awaiting placement 02/28. No change in medical condition. Awaiting placement 03/01. No medical changes noted. Awaiting placement 03/01. No medical changes noted. Awaiting placement 03/02. Had temperature more than 100 Fahrenheit. Ordered labs and chest x-ray. Labs reviewed. No pna and no leukocytosis. Procalcitonin negative. Blood cultures negative so far. Continue to monitor for now 03/03 - 03/11. No overnight events. Awaiting placement. 03/12-03/13. Awaiting placement. Continue trach care, secretion control and airway management. Gastrostomy tube care. Continue tube feedings per dietitian. Mobility protocols for pressure ulcer prophylaxis. History Interval history: 30 year old -Serbian female CHE 10/25/20 at 36w5d who presents with seizures in triage on 10/02/20. Pt was not able to provide history but per pt's , she presented to the hospital to return a 24 hour urine specimen for analysis. She then suddenly reported that she did not feel good. She was taken to labor and delivery and shortly after arrival, she began seizing. During this time, a code met was called because the patient became hypoxic. She was then noted to be without a pulse. Chest compressions were started immediately, and the patient was emergently taken to the operating room for delivery of the fetus. Off note, This patient has had care at [facility] with comanagement by [facility] since 11 wks complicated by ADHD, morbid obesity, generalized anxiety disorder, panic attacks, chronic narcotic use, fibromyalgia, GERD, Irritable Bowel Syndrome, Migraines, h/o endometrial ablation and ovarian vein embolization, genital herpes, insomnia, LGA fetus, nausea and vomiting, p olyhydramnios, quad screen positive for Down's Syndrome, and previous x 3. She was GBS negative. Hospitalist Physical - Constitutional Vitals: Temp Pulse Resp BP Pulse Ox 99.1 F 111 H 19 138/77 99 03/13/21 03:46 03/13/21 03:46 03/13/21 03:46 03/13/21 03:46 03/13/21 03:46 General appearance: Present: well-nourished, other (Anoxic encephalopathy) - EENT Eyes: Present: PERRL, EOM intact ENT: hearing intact, clear oral mucosa, dentition normal - Neck Neck: Present: supple, normal ROM - Respiratory Respiratory effort: normal Respiratory: bilateral: CTA - Cardiovascular Rhythm: regular Heart Sounds: Present: S1 & S2. Absent: gallop, rub - Extremities Extremities: no ischemia, No edema, Full ROM - Abdominal General gastrointestinal: soft, non-tender, non-distended, normal bowel sounds - Integumentary Integumentary: Present: clear, warm, dry - Neurologic Neurologic: other (Anoxic encephalopathy) HEART Score - HEART Score Age: < 45 Risk factors: 1-2 risk factors - Critical Actions Critical Actions: >7 pts:50-65% risk of adverse cardiac event. Early invasive measures Results - Labs CBC & Chem 7: 03/04/21 04:46 03/04/21 04:46 Labs: Laboratory Last Values WBC 8.6 K/mm3 (4.5-11.0) 03/04/21 04:46 RBC 5.49 M/mm3 (3.65-5.03) H 03/04/21 04:46 Hgb 13.4 gm/dl (10.1-14.3) 03/04/21 04:46 Hgb Comment See scanned result 10/04/20 Unknown Hct 41.0 % (30.3-42.9) 03/04/21 04:46 MCV 75 fl (79-97) L 03/04/21 04:46 MCH 25 pg (28-32) L 03/04/21 04:46 MCHC 33 % (30-34) 03/04/21 04:46 RDW 15.3 % (13.2-15.2) H 03/04/21 04:46 Plt Count 298 K/mm3 (140-440) 03/04/21 04:46 Lymph % (Auto) 30.9 % (13.4-35.0) 03/04/21 04:46 [place] % (Auto) 9.1 % (0.0-7.3) H 03/04/21 04:46 Eos % (Auto) 2.1 % (0.0-4.3) 03/04/21 04:46 Baso % (Auto) 0.3 % (0.0-1.8) 03/04/21 04:46 Lymph # (Auto) 2.7 K/mm3 (1.2-5.4) 03/04/21 04:46 [place] # (Auto) 0.8 K/mm3 (0.0-0.8) 03/04/21 04:46 Eos # (Auto) 0.2 K/mm3 (0.0-0.4) 03/04/21 04:46 Baso # (Auto) 0.0 K/mm3 (0.0-0.1) 03/04/21 04:46 Add Manual Diff Complete 02/09/21 10:59 Total Counted 100 02/09/21 10:59 Seg Neutrophils % 57.6 % (40.0-70.0) 03/04/21 04:46 Seg Neuts % (Manual) 58.0 % (40.0-70.0) 02/09/21 10:59 Band Neutrophils % 2.0 % 10/15/20 05:50 Lymphocytes % (Manual) 29.0 % (13.4-35.0) 02/09/21 10:59 Reactive Lymphs % (Man) 1.0 % 10/02/20 12:18 Monocytes % (Manual) 13.0 % (0.0-7.3) H 02/09/21 10:59 Eosinophils % (Manual) 1.0 % (0.0-4.3) 10/29/20 07:56 Myelocytes % 2.0 % 10/02/20 13:05 Metamyelocytes % 1.0 % 10/14/20 04:00 Nucleated RBC % Not Reportable 02/09/21 10:59 Seg Neutrophils # 4.9 K/mm3 (1.8-7.7) 03/04/21 04:46 Seg Neutrophils # Man 3.7 K/mm3 (1.8-7.7) 02/09/21 10:59 Band Neutrophils # 0.0 K/mm3 02/09/21 10:59 Lymphocytes # (Manual) 1.8 K/mm3 (1.2-5.4) 02/09/21 10:59 Abs React Lymphs (Man) 0.0 K/mm3 02/09/21 10:59 Monocytes # (Manual) 0.8 K/mm3 (0.0-0.8) 02/09/21 10:59 Eosinophils # (Manual) 0.0 K/mm3 (0.0-0.4) 02/09/21 10:59 Basophils # (Manual) 0.0 K/mm3 (0.0-0.1) 02/09/21 10:59 Metamyelocytes # 0.0 K/mm3 02/09/21 10:59 Myelocytes # 0.0 K/mm3 02/09/21 10:59 Promyelocytes # 0.0 K/mm3 02/09/21 10:59 Blast Cells # 0.0 K/mm3 02/09/21 10:59 WBC Morphology Not Reportable 02/09/21 10:59 Hypersegmented Neuts Not Reportable 02/09/21 10:59 Hyposegmented Neuts Not Reportable 02/09/21 10:59 Hypogranular Neuts Not Reportable 02/09/21 10:59 Smudge Cells Not Reportable 02/09/21 10:59 Toxic Granulation Not Reportable 02/09/21 10:59 Toxic Vacuolation Not Reportable 02/09/21 10:59 Dohle Bodies Not Reportable 02/09/21 10:59 Pelger-Huet Anomaly Not Reportable 02/09/21 10:59 Ester Rods Not Reportable 02/09/21 10:59 Platelet Estimate Consistent w auto 02/09/21 10:59 Clumped Platelets Not Reportable 02/09/21 10:59 Plt Clumps, EDTA Not Reportable 02/09/21 10:59 Large Platelets Few 02/09/21 10:59 Giant Platelets Not Reportable 02/09/21 10:59 Platelet Satelliting Not Reportable 02/09/21 10:59 Plt Morphology Comment Not Reportable 02/09/21 10:59 RBC Morphology Not Reportable 02/09/21 10:59 Dimorphic RBCs Not Reportable 02/09/21 10:59 Polychromasia Not Reportable 02/09/21 10:59 Hypochromasia 1+ 02/09/21 10:59 Poikilocytosis Not Reportable 02/09/21 10:59 Anisocytosis Not Reportable 02/09/21 10:59 Microcytosis Not Reportable 02/09/21 10:59 Macrocytosis Not Reportable 02/09/21 10:59 Spherocytes Not Reportable 02/09/21 10:59 Pappenheimer Bodies Not Reportable 02/09/21 10:59 Sickle Cells Not Reportable 02/09/21 10:59 Target Cells Not Reportable 02/09/21 10:59 Tear Drop Cells Not Reportable 02/09/21 10:59 Ovalocytes Not Reportable 02/09/21 10:59 Stomatocytes Few 10/14/20 04:00 Helmet Cells Not Reportable 02/09/21 10:59 [place] Bodies Not Reportable 02/09/21 10:59 Pringle Rings Not Reportable 02/09/21 10:59 Antoine Cells Not Reportable 02/09/21 10:59 Bite Cells Not Reportable 02/09/21 10:59 Crenated Cell Not Reportable 02/09/21 10:59 Elliptocytes Not Reportable 02/09/21 10:59 Acanthocytes (Spur) Not Reportable 02/09/21 10:59 Rouleaux Not Reportable 02/09/21 10:59 Hemoglobin C Crystals Not Reportable 02/09/21 10:59 Schistocytes Not Reportable 02/09/21 10:59 Malaria parasites Not Reportable 02/09/21 10:59 Sickle Cell Solubility See scanned result 10/04/20 Unknown Hemoglobin A See scanned result 10/04/20 Unknown Hemoglobin A2 See scanned result 10/04/20 Unknown Hemoglobin A2 Prime See scanned result 10/04/20 Unknown Hemoglobin C See scanned result 10/04/20 Unknown Hemoglobin D See scanned result 10/04/20 Unknown Hemoglobin E See scanned result 10/04/20 Unknown Hgb F Diffential Stain See scanned result 10/04/20 Unknown Hemoglobin F Quant See scanned result 10/04/20 Unknown Hemoglobin G See scanned result 10/04/20 Unknown Hemoglobin S See scanned result 10/04/20 Unknown Hemoglobin O-[place] See scanned result 10/04/20 Unknown Hemoglobin [place] See scanned result 10/04/20 Unknown Hemoglobin Analilia See scanned result 10/04/20 Unknown Variant Hemoglobin See scanned result 10/04/20 Unknown Abnorm Hgb IEF Confirm See scanned result 10/04/20 Unknown Hemoglobin Interpret See scanned result 10/04/20 Unknown Hemoglobinopathy Note See scanned result 10/04/20 Unknown Sharad Bodies Not Reportable 02/09/21 10:59 Hem Pathologist Commnt No 02/09/21 10:59 PT 13.6 Sec. (12.2-14.9) 10/21/20 13:54 INR 1.06 (0.87-1.13) 10/21/20 13:54 APTT 31.6 Sec. (24.2-36.6) 10/03/20 00:40 Fibrinogen 336 mg/dl (211-480) 10/04/20 10:00 D-Dimer 1974.47 ng/mlDDU (0-234) H 11/11/20 13:50 ABG pH 7.459 pH Units (7.350-7.450) H 10/26/20 10:30 POC ABG pCO2 20.7 mmHg (32.0-48.0) L 10/13/20 07:18 ABG pCO2 32.4 mm Hg 10/26/20 10:30 POC ABG pO2 137.9 mmHg (83-108) H 10/13/20 07:18 ABG pO2 112.2 mm Hg (80.0-90.0) H 10/26/20 10:30 POC ABG HCO3 14.8 10/13/20 07:18 ABG HCO3 22.5 mmol/L (20.0-26.0) 10/26/20 10:30 ABG O2 Saturation 98.2 % (95.0-99.0) 10/26/20 10:30 ABG O2 Content 18.5 (0.0-44) 10/26/20 10:30 POC ABG Base Excess -6.9 10/13/20 07:18 ABG Base Excess -0.6 mmol/L (-2.0-3.0) 10/26/20 10:30 ABG Hemoglobin 13.5 gm/dl (12.0-16.0) 10/26/20 10:30 ABG Oxyhemoglobin 98.3 (94-98) H 10/13/20 07:18 ABG Carboxyhemoglobin 1.3 % (0.0-5.0) 10/26/20 10:30 ABG Methemoglobin 0.5 % (0.0-1.5) 10/26/20 10:30 ABG Sodium 135.9 mmol/L (136.0-145.0) L 10/13/20 07:18 ABG Potassium 3.7 mmol/L (3.40-4.50) 10/13/20 07:18 ABG Chloride 111.0 mmol/L (98-107) H 10/13/20 07:18 ABG Glucose 109 mg/dL (65-95) H 10/13/20 07:18 VBG pH 6.949 (7.320-7.420) L* 10/02/20 Unknown Oxyhemoglobin 96.5 % (95.0-99.0) 10/26/20 10:30 Carboxyhemoglobin 0.3 (0.5-1.5) L 10/13/20 07:18 FiO2 25 % 10/26/20 10:30 Sodium 144 mmol/L (137-145) 03/04/21 04:46 Potassium 4.2 mmol/L (3.6-5.0) 03/04/21 04:46 Chloride 105.2 mmol/L (98-107) 03/04/21 04:46 Carbon Dioxide 26 mmol/L (22-30) 03/04/21 04:46 Anion Gap 17 mmol/L 03/04/21 04:46 BUN 15 mg/dL (7-17) 03/04/21 04:46 Creatinine 0.5 mg/dL (0.6-1.2) L 03/04/21 04:46 Estimated GFR > 60 ml/min 03/04/21 04:46 BUN/Creatinine Ratio 30 % 03/04/21 04:46 Glucose 96 mg/dL (65-100) 03/04/21 04:46 POC Glucose 88 mg/dL (70-105) 03/12/21 23:45 Random Insulin 43.2 uIU/mL (<=19.6) H 11/02/20 19:19 Proinsulin See scanned result 11/02/20 19:19 C-Peptide 6.23 ng/mL (0.80-3.85) H 11/02/20 19:19 Lactic Acid 1.90 mmol/L (0.7-2.0) 10/04/20 22:00 Uric Acid 7.5 mg/dL (3.5-7.6) 10/02/20 13:05 Calcium 10.0 mg/dL (8.4-10.2) 03/04/21 04:46 Ionized Calcium 4.4 mg/dL (4.8-5.6) L 10/07/20 21:00 Phosphorus 4.60 mg/dL (2.5-4.5) H 11/13/20 10:05 Magnesium 2.10 mg/dL (1.7-2.3) 11/13/20 10:05 Total Bilirubin 0.80 mg/dL (0.1-1.2) 03/04/21 04:46 AST 51 units/L (5-40) H 03/04/21 04:46 ALT 53 units/L (7-56) 03/04/21 04:46 Alkaline Phosphatase 117 units/L (35-129) 03/04/21 04:46 Lactate Dehydrogenase 769 units/L (91-180) H 10/02/20 13:05 C-Reactive Protein 0.70 mg/dL (0.00-1.30) 11/11/20 13:50 NT-Pro-B Natriuret Pep 2788 pg/mL (0-450) H 10/04/20 10:00 Total Protein 8.4 g/dL (6.3-8.2) H 03/04/21 04:46 Albumin 4.2 g/dL (3.9-5) 03/04/21 04:46 Albumin/Globulin Ratio 1.0 % 03/04/21 04:46 Procalcitonin < 0.05 ng/mL (<0.15) 03/02/21 02:30 Arterial Blood Glucose 109 mg/dL (65-95) H 10/13/20 07:18 Arterial Blood Ionized Calcium 4.6 mg/dL (4.6-5.3) 10/13/20 07:18 Urine Color Yellow (Yellow) 01/25/21 09:51 Urine Turbidity Cloudy (Clear) 01/25/21 09:51 Urine pH 7.0 (5.0-7.0) 01/25/21 09:51 Ur Specific [place] 1.011 (1.003-1.030) 01/25/21 09:51 Urine Protein <15 mg/dl mg/dL (Negative) 01/25/21 09:51 Urine Glucose (UA) Neg mg/dL (Negative) 01/25/21 09:51 Urine Ketones Neg mg/dL (Negative) 01/25/21 09:51 Urine Blood Neg (Negative) 01/25/21 09:51 Urine Nitrite Neg (Negative) 01/25/21 09:51 Urine Bilirubin Neg (Negative) 01/25/21 09:51 Urine Urobilinogen < 2.0 mg/dL (<2.0) 01/25/21 09:51 Ur Leukocyte Esterase Neg (Negative) 01/25/21 09:51 Urine WBC (Auto) 6.0 /HPF (0.0-6.0) 01/25/21 09:51 Urine RBC (Auto) 3.0 /HPF (0.0-6.0) 01/25/21 09:51 U Epithel Cells (Auto) < 1.0 /HPF (0-13.0) 01/25/21 09:51 Urine Bacteria (Auto) 1+ /HPF (Negative) 01/18/21 08:47 Urine WBC Clumps 3+ /HPF 11/11/20 13:50 Calcium Oxalate Crystal Few 11/11/20 13:50 Urine Mucus Few /HPF 01/25/21 09:51 Urine Yeast (Budding) 2+ /HPF 01/25/21 09:51 Vancomycin Trough 12.6 ug/mL (5.0-20.0) 10/21/20 13:54 Random Vancomycin 10.7 ug/mL (0-40.0) 10/16/20 13:09 Phenytoin 5.7 ug/mL (10.0-20.0) L 10/13/20 07:00 C. difficile Tox (PCR) Positive (Negative) 10/16/20 10:22 Coronavirus (PCR) Negative (Negative) 10/08/20 14:15 Blood Type O POSITIVE 10/02/20 12:50 Antibody Screen Negative 10/02/20 12:50 Crossmatch See Detail 10/02/20 12:50 - Diagnostic Impressions Diagnostic Impressions: Echocardiogram 10/03/20 13:42 Transthoracic Echocardiogram Indication: S/P Cardiac Arrest R/O Cardiomyopathy BP: 133/71 Conclusions *Global left ventricular systolic function is normal. *The estimated ejection fraction is 60-65%. *There is trace of mitral regurgitation. *The right 0heart chambers are both slightly dilated. *There is mild tricuspid regurgitation. *There is mild-moderate pulmonary hypertension. *The right ventricular systolic pressure is calculated at 44 mmHg. *The study quality is technically difficult. Findings Procedure Info: The study quality is technically difficult. The study is technically limited due to patient body habitus. The study was technically limited due to the patient's inability to lay in the left lateral decubitus position. Left Ventricle: The left ventricular chamber size is normal. There is no left ventricular hypertrophy. Global left ventricular systolic function is normal. The estimated ejection fraction is 60-65%. Left Atrium: The left atrial chamber size is normal. Right Ventricle: The right ventricle is slightly dilated. Right Atrium: The right atrium is mildly dilated. Aortic Valve: The aortic valve leaflets are mildly thickened. There is no evidence of aortic regurgitation. There is no evidence of aortic stenosis. Mitral Valve: The mitral valve leaflets are mildly thickened. There is trace of mitral regurgitation. There is no evidence of mitral stenosis. Tricuspid Valve: There is mild tricuspid regurgitation. The right ventricular systolic pressure is calculated at 44 mmHg. There is evidence of mild pulmonary hypertension. Pulmonic Valve: There is trace pulmonic regurgitation. Pericardium: There is no pericardial effusion. Aorta: There is no dilatation of the ascending aorta. There is no dilatation of the aortic root. Venous: The inferior vena cava is dilated. Measurements Chambers 2D Name Value Normal Range IVSd (2D) 1 cm (0.6 - 1.1) LVPWd (2D) 1.01 cm (0.6 - 1.1) LVIDd (2D) 4.58 cm (3.7 - 5.6) LVIDs (2D) 3.17 cm (2 - 3.8) LV FS (2D) 30.93 % - EF Teichholz (2D) 58.66 % - Ao root diameter (2D) 2.94 cm (2 - 3.7) Volumes/Mass Name Value Normal Range LA ESV SP 4CH (A/L) 72.82 ml - LA ESV SP 2CH (A/L) 66.86 ml - LA ESV BP (A/L) 74.49 ml - LA ESV SP 4CH (MOD) 71.03 ml - LA ESV SP 2CH (MOD) 64.3 ml - LV EDV SP 4CH (MOD) 98.82 ml - LV ESV SP 4CH (MOD) 24.8 ml - EF SP 4CH (MOD) 74.9 % - LV EDV SP 2CH (MOD) 86.1 ml - LV ESV SP 2CH (MOD) 36.93 ml - EF SP 2CH (MOD) 57.11 % - LV EDV BP 94.4 ml - LV ESV BP 32.66 ml - BP EF (MOD) 65.4 % - Diastolic/Systolic Function Name Value Normal Range MV E-wave Vmax 1.04 m/sec - MV deceleration time 160.46 msec - MV A-wave Vmax 0.92 m/sec - MV E:A ratio 1.14 ratio - Aortic Valve Name Value Normal Range AV Vmax 2.12 m/sec - AV VTI 22.37 cm - AV peak gradient 17.95 mmHg - AV mean gradient 7.29 mmHg - LVOT diameter 2.01 cm - LVOT Vmax 1.8 m/sec - LVOT VTI 27.17 cm - LVOT peak gradient 12.91 mmHg - LVOT mean gradient 6.83 mmHg - SV LVOT 86.42 ml - ANITA (continuity Vmax) 2.7 cm2 - ANITA (continuity VTI) 3.86 cm2 - Ascending Ao 3.18 cm - Tricuspid Valve Name Value Normal Range TV E-wave Vmax 0.88 m/sec - TR Vmax 3.01 m/sec - TR peak gradient 36.27 mmHg - RAP 8 mmHg - RVSP 44 mmHg - IVC diameter 2.65 cm (1.2 - 2.3) Pulmonic Valve/Qp:Qs Name Value Normal Range PV Vmax 1.22 m/sec - PV peak gradient 5.91 mmHg - RVOT Vmax 0.87 m/sec - RVOT VTI 13.32 cm - RVOT peak gradient 3 mmHg - PV acceleration time 110.37 msec - [place]/IV: Voiding Method Incontinent IV Catheter Type [Right Foot] INT / Saline Lock IV Catheter Type [Left Forearm Peripheral IV ] IV Catheter Type [Left Wrist] INT / Saline Lock IV Catheter Type [Right Hand] INT / Saline Lock IV Catheter Type [Right INT / Saline Lock Antecubital] IV Catheter Type [Right Upper Mid-line arm] IV Catheter Type [Left Triple Lumen Cath Internal Jugular] IV Catheter Type [Left Hand] Peripheral IV IV Catheter Type [Left Peripheral IV Antecubital] Active Medications - Current Medications Current Medications: Generic Name Dose Route Start Last Admin Trade Name Freq PRN Reason Stop Dose Admin Acetaminophen 650 mg 10/05/20 16:34 03/09/21 09:01 Acetaminophen 325 Mg/10.15 Ml Oral Liqd Unit Dose FEEDTUBE 650 mg Q6H PRN Administration Non Cardiac Pain or Temp>100.5 Albuterol 2.5 mg 11/05/20 13:03 11/06/20 13:04 Albuterol 2.5 Mg/3 Ml Nebu IH 2.5 mg Q4HRT PRN Administration Shortness Of Breath Alprazolam 0.25 mg 01/20/21 13:33 03/12/21 09:42 Alprazolam 0.25 Mg Tab PO 0.25 mg Q8H PRN Administration Anxiety Lipase/Protease/Amylase 1 each 10/05/20 11:09 Lipase 10,500/Protease 25,000/Amylase 43,750 (Units) Dr Barakat FEEDTUBE PRN PRN For Clogged Feeding Tube Enoxaparin Sodium 40 mg 10/22/20 10:00 03/12/21 09:42 Enoxaparin 40 Mg/0.4 Ml Inj SUB-Q 40 mg DAILY ERINN Administration Protocol Famotidine 20 mg 10/07/20 10:00 03/12/21 22:08 Famotidine 20 Mg Tab PO 20 mg BID ERINN Administration Hydrophilic Ointment 1 applic 01/03/21 13:00 02/16/21 09:56 Lip Therapy Vaseline TP 1 applic DIRECT PRN Administration Dry Lips Dextrose 1,000 mls @ 30 mls/hr 01/03/21 12:00 02/11/21 18:44 D5w IV 30 mls/hr DIRECT ERINN Administration Metoprolol Tartrate 50 mg 02/02/21 16:01 03/12/21 22:09 Metoprolol Tartrate 25 Mg Tab PO 50 mg BID ERINN Administration Morphine Sulfate 2 mg 01/20/21 13:33 Morphine 2 Mg/1 Ml Inj IV Q4H PRN Pain, Moderate (4-6) Ondansetron HCl 4 mg 02/10/21 11:38 02/10/21 13:18 Ondansetron 4 Mg/2 Ml Inj IV 4 mg Q4H PRN Administration Nausea And Vomiting Simple Syrup 15 ml 10/05/20 11:09 Simple Syrup 15 Ml FEEDTUBE PRN PRN Hypoglycemia Simple Syrup 30 ml 10/05/20 11:09 Simple Syrup 15 Ml FEEDTUBE PRN PRN Hypoglycemia Sodium Bicarbonate 325 mg 10/05/20 11:09 12/16/20 08:19 Sodium Bicarbonate 325 Mg Tab FEEDTUBE 325 mg PRN PRN Administration For Clogged Feeding Tube Nutrition/Malnutrition Assess - Dietary Evaluation Nutrition/Malnutrition Findings: Nutrition Notes Start: 10/04/20 11:13 Freq: Status: Active Protocol: Document 03/12/21 09:21 CW (Rec: 03/12/21 09:32 CW [id number]) Nutrition Notes Initial or Follow up Reassessment Other Pertinent Diagnosis s/p cardiac arrest x 2, anoxic brain injury Current Diet Promote at 65ml/hr Labs/Tests 03/04 labs reviewed Pertinent Medications Reviewed Height 5 ft 8 in Weight 90.1 kg [place] Body Weight (kg) 63.63 BMI 30.2 Weight change and time frame weight change noted. Weight Status Obese Subjective/Other Information F/U for TF tolerance. [employer]seiling Instructor noted Osmolite 1.5 running at 65ml/hr RN alerted and changed . approximately 95% of bottle infused. Wt increase noted and reweight completed by this mortgage loan underwriter. Weight returning to UBW prior to edema. Will monitor for stable weights and adjust TF as prompted. Percent of energy/protein needs met: 99%/93% (950 ml of Osmolite) Burn Absent Trauma Absent GI Symptoms None Difficulty In Swallowing,Chewing Current % PO Negligible Minimum of two criteria Yes Fluid Accumulation Moderate to Severe (severe) #2 Nutrition Diagnosis Malnutrition As Evidenced by Signs and Symptoms no weight loss has occurred unrelated to post- weight loss or diuretics usage Diagnosis Progress(for reassessment Improved documentation) #1 Nutrition Diagnosis Inadequate oral intake Diagnosis Progress(for reassessment Continues documentation) Is patient on ventilator? No Is Patient Ambulatory and/or Out of Bed No REE-([facility]-confined to bed) 1992.392 Kcal/Kg value to use for calculation 16 Approximate Energy Requirements Using 1442 kcal/Kg Calculation Used for Recommendations Kcal/kg Additional Notes PRO needs: 64-80g (.8-1.0 g/kg AdBW 81kg) Fluid needs: 1 mL/kcal or per MD Nutrition Intervention Change Diet Order: Continue Nutrition Support: Promote at 65 mL/hr Flush 100 ml q4h Kcal 1,560 Protein (gm) 98 Fluid (mL) 1,309 Goal #1 TF tolerance Goal #2 TF to meet at least 75% estimated energy and protein needs. Anticipated Discharge Needs: Promote at 65 ml/hr Flush 100 ml q4h Follow-Up By: 03/17/21 Additional Comments F/U for stable weights and TF tolerance
[2021-03-13] MEDS: FAMOTIDINE 20 MG TAB PO SCH ×2 (11:55→22:08)
[2021-03-13] MEDS: ENOXAPARIN 40 MG/0.4 ML INJ SUB-Q SCH (11:55)
[2021-03-13] MEDS: METOPROLOL TARTRATE 25 MG TAB PO SCH ×2 (12:04→22:08)
[2021-03-13] MEDS: ALPRAZolam 0.25 MG TAB PO PRN ×2 (12:56→22:09)
--- NOTE | 2021-03-14 08:08 | Progress Note ---
Assessment and Plan Assessment and plan: --DIC (disseminated intravascular coagulation) vs HELLP syndrome Resolved --Possible Eclampsia/HELLP Syndrome Resolved --s/p Cardiac arrest x2 on admission and on 10/07 ACLS protocol followed by revival Echo showed preserved Ef --Anoxic brain injury, Developed following cardiac arrest, continue supportive care --Shock-resolved now awaiting placement s/p pressor support --ADOLPH-resolved Stable --Sepsis 2/2 UTI s/p cefepime to cover possible pseudomonas as sputum is also growing GN rods till 01/04/21 Previous urine culture grew pansensitive ecoli Blood cultures from 12/27-no growth --Hypernatremia, resolved, cont free water with TF --DVT prophylaxis Patient presented with DIC No anticoagulants Overall prognosis extremely poor. Daily clinical course 10/02/21 11:30: Pt brought to L&D triage for evaluation of possible labor. Pt accompanied by her spouse. Pt spouse poor historian; unable to obtain history- allergies at this time. Pt taken from registration to triage area via WC. Pt unresponsive, actively seizing with snorous respirations. towel rolling machine operator, Kassy, called and requesting assistance. 11:35: Multiple staff at bedside. Pt 02 sat 67% on nonrebreather, unable to read BP at this time. Yifan Theodore CRNA, at bedside for intubation and assistance with IV insertion. INT attempt by multiple RNs unsuccessful at this time. 11:42: Pt being bagged by KORIN, 02% 79%. No pulse palpated, compressions started at this time; bharati young called and Dr. Newberry preparing OR for emergent c/s. 11:44: Continued compressions on stretcher while transporting pt to OR 1. Pt being bagged with jaw thrust manuever in place by KORIN Stringer student. 11:45: Arrival to OR 1. Dr. Newberry and Dr. Portillo present for emergent c/s. Code team arrived for continued care. patient revived and c/s done Patient has been bleeding from C/s site followed by supracervical hysterectomy for severe bleeding Patient transfused multiple units of PRBC, Patient in DIC. Transferred to the [facility] 10/03. Patient seen and examined at bedside this morning. Patient is nonresponsive and mechanically ventilated. On pressors. Labs reviewed-has leukocytosis, anemia, thrombocytopenia, ADOLPH and lactic acidosis. Started on IV antibiotics to cover possible sepsis secondary to DIC. Hematology oncology recommendations appreciated-needs additional cryoprecipitate and FFP. Monitor D-dimer, fibrinogen and frequent labs. Nephrology consulted for lactic acidosis and ADOLPH. 10/04. Remains mechanically ventilated. Wagoner antibiotics. Labs shows improved acidosis - lactic acid 3.5. Hb drop noted. Getting transfused 2 units PRBCs. Platelet count is ~40k. Continue to monitor labs closely. Critical care team on board. 10/05; xray reviewed, concerning for multifocal infilrate, likely underlying Pne umonia, will add ID consult to assist with management of this critically ill patient, start tube feed, closely monitor renal system 10/06: Resumed care, remains on mechanical ventilation. No active bleeding, H&H stable. Continue to monitor CBC and BMP. Continue IV antibiotic for underlying pneumonia. Follow critical care and ID recommendation. 10/07: Remains on mechanical ventilation. No active bleeding, H&H stable. Critical care following, wean off ventilation as tolerated. 10/08: Patient had another cardiac arrest last night. Remains on mechanical ventilation, update family. Continue supportive care -poor prognosis 10/09: Called patient mother and discussed about patient care and management. Answered all question to best of my knowledge and family satisfaction. Patient remains on mechanical ventilation, cardiac arrest x2 so far. Critically sick, poor prognosis 10/10: remains on mechanical ventilation. h/h stable, no active bleeding. monitor CBC/BMP 10/11: WBC trended up with diarrhea, started on vancomycin po. remains on MV, off pressor, tolerating TF 10/12: remains on MV, off pressor, tolerating TF. called family for update but unable to reach, could not leave message as it was full. cont supportive care, wean off vent as tolerated. 10/13/2020; patient is on mechanical ventilation, tolerating tube feeding. Patient has labored breathing. Neuro was consulted and recommend MRI. Patient is on Precedex. Rectal tube in place. 10/14/2020; patient is on mechanical ventilation, Precedex. Patient had fever and blood culture ordered. Patient is on IV vancomycin per ID recommendation. Neuro consulted and recommend MRI. Continue to monitor. Prognosis is guarded. 10/15/2020; patient is on mechanical ventilation, Precedex. Patient had fever and blood culture ordered. Patient is on IV vancomycin per ID recommendation. Neuro consulted and recommend MRI. Continue to monitor. Prognosis is guarded. 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 12/06/20; anoxic brain injury. Awaiting placement. 12/07/2020; anoxic brain injury, awaiting placement. 12/09/2020; anoxic brain injury, awaiting placement. 12/10/2020; patient had episodes of fever overnight. CBC, BMP, blood culture, UA and chest x-ray ordered, will follow and manage accordingly. Urinalysis is suggestive of UTI and I put the patient on ceftriaxone, order urine culture. Chest x-ray is normal. 12/11/2020; patient is on ceftriaxone day 2 for UTI. We will continue to follow urine culture. 12/12/2020. Day #3 of Rocephin for UTI. We will continue for 2 more days while she is here. Present UTI. 12/13/2020. Day #4 of Rocephin for UTI. Patient remains on 50% with tracheost jayne. Remains unresponsive with evidence of anoxic encephalopathy unable to make needs known. 12/14/2020. Day #5 of Rocephin for UTI completed today. Remains encephalopathic unable to make needs known. Remains on 50% unable to decrease oxygen via tracheostomy. Overall prognosis remains extremely poor. 3: Continue to monitor. Stop and monitor antibiotics at this time. Continue to wean oxygen as tolerated. Wean oxygen as tolerated. Case management working on placement. 12/16: Continue supportive care aspiration precautions. Awaiting placement discussion. Monitor fever curve. Prognosis remains poor no evidence of neurological recovery as of today 3: Continue supportive care, check labs and chest xray. Still monitor off antibiotics. Monitor Sodium level 12/18: Patient remains with intermittent low grade fever, reviewed EEG from September again, consistent for Ischemic Hypoxic Encephalopathy, patient with decorticating posturing type presentation. Will discuss with seafood service team member to opt imize diet so we can discontinue D5. CXR with no abnormality. Discussed extensively with the nursing staff at bedside CXR IMPRESSION: 1. No acute findings. 12/19: No clinical change 12/20: No clinical change, now off abx, monitor, discussed her medications with our pharmacist I believe that her posture and rigidity is likely from underlying anoxic encephalopathy. Continue to monitor and await placement decision. Continue aggressive suctioning. Plan discussed in detail with the nursing staff 12/21: Continue supportive care. Will give 500 cc bolus of fluid today to replace insensible losses. Tachycardia appears to be improving. Blood pressure precludes adjusting cardiac meds. Still awaiting placement from case management. Plan discussed in detail with the nursing staff 12/22. Continue support supportive care. Tracheostomy and PEG in place. Remains nonresponsive. Awaiting placement. 12/23. Continue support supportive care. Tracheostomy and PEG in place. Remains nonresponsive. Awaiting placement. Remains tachycardic. Decrease dose of lasix. Will try low dose metoprolol. Monitor BP closely 12/24. Continue support supportive care. Tracheostomy and PEG in place. Remains nonresponsive. Awaiting placement. Heart rate slightly better. Continue to monitor BP closely 12/25. Continue support supportive care. Tracheostomy and PEG in place. Remains nonresponsive. Awaiting placement. 12/26. Continue support supportive care. Tracheostomy and PEG in place. Remains nonresponsive. Awaiting placement 12/27. Continue support supportive care. Tracheostomy and PEG in place. Remains nonresponsive. Awaiting placement 12/28. Had fever yesterday. Blood culture drawn. UA - UTI - started on antibiotics. Now tracheal aspirate is growing GN rods. 12/29: Continue IV antibiotics, continue supportive care. Since admission patient has shown minimal or no chance of neurological recovery. Need 24/7 assistance. Currently on trach and PEG, nonverbal. Waiting on SNF placement. Discussed with child welfare caseworker today. 12/30: Continue IV antibiotics for UTI, continue supportive care. Pending placement 12/31: continue supportive care. continue supportive care. Pending placement 01/01: continue supportive care. Pending placement. cont Iv abx for UTI till 01/04 01/02: Continue supportive care, pending placement. Sodium level slightly elevated, will start hypotonic fluid. Continue antibiotics till 01/04 01/03; cont hypotonic fluid, increase free water with TF for hypernatremia, follow BMP. cont supportive care. pending placement. cont cefepime. recx blood 01/04: resolved hyponatremia, cont supportive care, pending placement. Last day of supplement today. 01/05: Continue supportive care, pending placement. Monitor H&H and fever curve off antibiotic. 01/06; monitor off abx, suction as needed, Continue supportive care, pending placement. 01/07: Discharge pending on placement, vitals stable. Continue supportive care 01/08: Discharge pending on placement, vitals stable. Continue supportive care. stop lasix, increase metoprolol to 25mg BID for ST. 01/09 patient resting with eyes closed. Opens eyes to tactile stimulus, has a blink reflex, does not follow simple commands, has a T-collar / G-tube Lab results reviewed, low-grade fever, 01/10 Eyes open, does not follow simple commands, no acute events overnight 01/11 no acute events overnight Waiting for placement 01/12 No acute events overnight. Patient awaiting for placement 01/13. No new issues. Awaiting placement 01/14. No new issues. Awaiting placement. 01/15. No new issues. Awaiting placement. 01/16. No new issues. Patient remain stable. Awaiting placement. Check maintenance labs. 01/17. Routine maintenance labs were ordered and are still pending. Await placement. 01/18. Patient with low-grade fever past 24-48 hrs. WBC within normal limits. Check chest x-ray, urinalysis and consider blood cultures. Continue tracheostomy care, secretion control and airway management. Patient currently with PEG and tube feedings at 60 cc an hour. Nutritional support and aspiration precautions. 01/19. Temperature 100.7 overnight. Continue to monitor closely. Continue tracheostomy care, secretion control and airway management. Patient currently with PEG and tube feedings at 60 cc an hour. Nutritional support and aspiration precautions. 01/20. Continue to monitor closely. Continue tracheostomy care, secretion control and airway management. Patient currently with PEG and tube feedings at 60 cc an hour. Nutritional support and aspiration precautions. 01/21. Afebrile overnight. Continue to monitor closely. Continue tracheostomy care, secretion control and airway management. Patient currently with PEG and tube feedings at 60 cc an hour. Nutritional support and aspiration precautions. 01/22. Continue to monitor closely. Continue tracheostomy care, secretion control and airway management. Patient currently with PEG and tube feedings at 60 cc an hour. Nutritional support and aspiration precautions. 01/23. Continue tracheostomy care, secretion control and airway management. Patient currently with PEG and tube feedings at 60 cc an hour. Nutritional support and aspiration precautions. Will get routine labs tomorrow. 01/24. Labs reviewed. No abnormalities. Continue tracheostomy care, secretion control and airway management. Patient currently with PEG and tube feedings at 60 cc an hour. Nutritional support and aspiration precautions. 01/25. Temp 100.6. More sleepy today. Will get chest xray, blood culture, urinalysis, sputum cultures. Will start on empirical abx. 01/26: Vitals noted, slightly tachycardic. Follow culture work-up, continue supportive care. 01/27: Spiking low-grade temp, negative UA, sputum culture and recent blood cultures also negative. Continue to monitor off antibiotics. Continue supportive care. Pending placement. 01/28: cont to spike low grade temp, negative UA, sputum culture and recent blood cultures also negative. Continue to monitor off antibiotics. will order fpr sinus xry. Continue supportive care. Pending placement. 01/29: Continue to follow clinically, intermittently spiking low-grade temp, all recent culture work is negative, negative UA, normal respiratory jaylan 1 tracheal aspirate. Vitals noted and currently stable. Pending placement 01/30: Clinically unchanged, continue to monitor vitals, continue supportive cares. Pending placement. Discussed plan of care with RN at the bedside. 01/31 - TODATE: cont supportive care, pending placement. monitor vitals carefully. Discussed with family at the bedside. 02/06. Patient afebrile today. Continue trach care. Secretions stable today. Culture data negative so far. Awaiting placement. 02/07. Awaiting placement awaiting family member to evaluate papers. Continue trach care secretions stable. Pending placement 02/09: Intermittent fever, ?drug related, will check cxr and also labs. No new complaints. 02/10: Patient's trach dislodged today. Nevertheless respiratory status is intact attempt to reinsert was unsuccessful will monitor discussed with nursing staff to pay close attention to the patient. Considering that this was not a planned decannulation I will start the patient on continuous pulse ox until full evaluation was done by pulmonary. 02/13/2021 Vital signs stable Unresponsive secondary to anoxic encephalopathy Awaiting placement 02/14/2021 Awaiting placement 02/15/2021 Anoxic encephalopathy Awaiting placement 02/16/2021 Anoxic encephalopathy Awaiting placement 02/17/2021 Anoxic encephalopathy awaiting placement 02/18/2021 Anoxic encephalopathy awaiting placement 02/19/2021 Anoxic encephalopathy awaiting placement 02/20/2021 Anoxic encephalopathy awaiting placement 02/21/2021 Anoxic encephalopathy awaiting placement 02/22/2021 Anoxic encephalopathy awaiting placement 02/23/2021 Anoxic encephalopathy awaiting placement 02/24/2021 Anoxic encephalopathy awaiting placement 02/25/2021 Anoxic encephalopathy waiting for placement 02/26 Awaiting placement 02/27. Awaiting placement 02/28. No change in medical condition. Awaiting placement 03/01. No medical changes noted. Awaiting placement 03/01. No medical changes noted. Awaiting placement 03/02. Had temperature more than 100 Fahrenheit. Ordered labs and chest x-ray. Labs reviewed. No pna and no leukocytosis. Procalcitonin negative. Blood cultures negative so far. Continue to monitor for now 03/03 - 03/11. No overnight events. Awaiting placement. 03/12-03/14. Awaiting placement. Continue trach care, secretion control and airway management. Gastrostomy tube care. Continue tube feedings per dietitian. Mobility protocols for pressure ulcer prophylaxis. History Interval history: 30 year old -Mal[place]ian female CHE 10/25/20 at 36w5d who presents with seizures in triage on 10/02/20. Pt was not able to provide history but per pt's , she presented to the hospital to return a 24 hour urine specimen for analysis. She then suddenly reported that she did not feel good. She was taken to labor and delivery and shortly after arrival, she began seizing. During this time, a code met was called because the patient became hypoxic. She was then noted to be without a pulse. Chest compressions were started immediately, and the patient was emergently taken to the operating room for delivery of the fetus. Off note, This patient has had care at [facility] with comanagement by [facility] since 11 wks complicated by ADHD, morbid obesity, generalized anxiety disorder, panic attacks, chronic narcotic use, fibromyalgia, GERD, Irritable Bowel Syndrome, Migraines, h/o endometrial ablation and ovarian vein embolization, genital herpes, insomnia, LGA fetus, nausea and vomiting, p olyhydramnios, quad screen positive for Down's Syndrome, and previous x 3. She was GBS negative. Hospitalist Physical - Constitutional Vitals: Temp Pulse Resp BP Pulse Ox 99.5 F 102 H 20 116/73 96 03/14/21 06:44 03/14/21 06:44 03/14/21 06:44 03/14/21 06:44 03/14/21 06:44 General appearance: Present: well-nourished, other (Anoxic encephalopathy) - EENT Eyes: Present: PERRL, EOM intact ENT: hearing intact, clear oral mucosa, dentition normal - Neck Neck: Present: supple, normal ROM, other (Tracheostomy) - Respiratory Respiratory effort: normal Respiratory: bilateral: CTA - Cardiovascular Rhythm: regular Heart Sounds: Present: S1 & S2. Absent: gallop, rub - Extremities Extremities: no ischemia, No edema, Full ROM - Abdominal General gastrointestinal: soft, non-tender, non-distended, normal bowel sounds - Integumentary Integumentary: Present: clear, warm, dry - Neurologic Neurologic: CNII-XII intact, moves all extremities HEART Score - HEART Score Age: < 45 Risk factors: 1-2 risk factors - Critical Actions Critical Actions: >7 pts:50-65% risk of adverse cardiac event. Early invasive measures Results - Labs CBC & Chem 7: 03/04/21 04:46 03/04/21 04:46 Labs: Laboratory Last Values WBC 8.6 K/mm3 (4.5-11.0) 03/04/21 04:46 RBC 5.49 M/mm3 (3.65-5.03) H 03/04/21 04:46 Hgb 13.4 gm/dl (10.1-14.3) 03/04/21 04:46 Hgb Comment See scanned result 10/04/20 Unknown Hct 41.0 % (30.3-42.9) 03/04/21 04:46 MCV 75 fl (79-97) L 03/04/21 04:46 MCH 25 pg (28-32) L 03/04/21 04:46 MCHC 33 % (30-34) 03/04/21 04:46 RDW 15.3 % (13.2-15.2) H 03/04/21 04:46 Plt Count 298 K/mm3 (140-440) 03/04/21 04:46 Lymph % (Auto) 30.9 % (13.4-35.0) 03/04/21 04:46 [place] % (Auto) 9.1 % (0.0-7.3) H 03/04/21 04:46 Eos % (Auto) 2.1 % (0.0-4.3) 03/04/21 04:46 Baso % (Auto) 0.3 % (0.0-1.8) 03/04/21 04:46 Lymph # (Auto) 2.7 K/mm3 (1.2-5.4) 03/04/21 04:46 [place] # (Auto) 0.8 K/mm3 (0.0-0.8) 03/04/21 04:46 Eos # (Auto) 0.2 K/mm3 (0.0-0.4) 03/04/21 04:46 Baso # (Auto) 0.0 K/mm3 (0.0-0.1) 03/04/21 04:46 Add Manual Diff Complete 02/09/21 10:59 Total Counted 100 02/09/21 10:59 Seg Neutrophils % 57.6 % (40.0-70.0) 03/04/21 04:46 Seg Neuts % (Manual) 58.0 % (40.0-70.0) 02/09/21 10:59 Band Neutrophils % 2.0 % 10/15/20 05:50 Lymphocytes % (Manual) 29.0 % (13.4-35.0) 02/09/21 10:59 Reactive Lymphs % (Man) 1.0 % 10/02/20 12:18 Monocytes % (Manual) 13.0 % (0.0-7.3) H 02/09/21 10:59 Eosinophils % (Manual) 1.0 % (0.0-4.3) 10/29/20 07:56 Myelocytes % 2.0 % 10/02/20 13:05 Metamyelocytes % 1.0 % 10/14/20 04:00 Nucleated RBC % Not Reportable 02/09/21 10:59 Seg Neutrophils # 4.9 K/mm3 (1.8-7.7) 03/04/21 04:46 Seg Neutrophils # Man 3.7 K/mm3 (1.8-7.7) 02/09/21 10:59 Band Neutrophils # 0.0 K/mm3 02/09/21 10:59 Lymphocytes # (Manual) 1.8 K/mm3 (1.2-5.4) 02/09/21 10:59 Abs React Lymphs (Man) 0.0 K/mm3 02/09/21 10:59 Monocytes # (Manual) 0.8 K/mm3 (0.0-0.8) 02/09/21 10:59 Eosinophils # (Manual) 0.0 K/mm3 (0.0-0.4) 02/09/21 10:59 Basophils # (Manual) 0.0 K/mm3 (0.0-0.1) 02/09/21 10:59 Metamyelocytes # 0.0 K/mm3 02/09/21 10:59 Myelocytes # 0.0 K/mm3 02/09/21 10:59 Promyelocytes # 0.0 K/mm3 02/09/21 10:59 Blast Cells # 0.0 K/mm3 02/09/21 10:59 WBC Morphology Not Reportable 02/09/21 10:59 Hypersegmented Neuts Not Reportable 02/09/21 10:59 Hyposegmented Neuts Not Reportable 02/09/21 10:59 Hypogranular Neuts Not Reportable 02/09/21 10:59 Smudge Cells Not Reportable 02/09/21 10:59 Toxic Granulation Not Reportable 02/09/21 10:59 Toxic Vacuolation Not Reportable 02/09/21 10:59 Dohle Bodies Not Reportable 02/09/21 10:59 Pelger-Huet Anomaly Not Reportable 02/09/21 10:59 Ester Rods Not Reportable 02/09/21 10:59 Platelet Estimate Consistent w auto 02/09/21 10:59 Clumped Platelets Not Reportable 02/09/21 10:59 Plt Clumps, EDTA Not Reportable 02/09/21 10:59 Large Platelets Few 02/09/21 10:59 Giant Platelets Not Reportable 02/09/21 10:59 Platelet Satelliting Not Reportable 02/09/21 10:59 Plt Morphology Comment Not Reportable 02/09/21 10:59 RBC Morphology Not Reportable 02/09/21 10:59 Dimorphic RBCs Not Reportable 02/09/21 10:59 Polychromasia Not Reportable 02/09/21 10:59 Hypochromasia 1+ 02/09/21 10:59 Poikilocytosis Not Reportable 02/09/21 10:59 Anisocytosis Not Reportable 02/09/21 10:59 Microcytosis Not Reportable 02/09/21 10:59 Macrocytosis Not Reportable 02/09/21 10:59 Spherocytes Not Reportable 02/09/21 10:59 Pappenheimer Bodies Not Reportable 02/09/21 10:59 Sickle Cells Not Reportable 02/09/21 10:59 Target Cells Not Reportable 02/09/21 10:59 Tear Drop Cells Not Reportable 02/09/21 10:59 Ovalocytes Not Reportable 02/09/21 10:59 Stomatocytes Few 10/14/20 04:00 Helmet Cells Not Reportable 02/09/21 10:59 [place] Bodies Not Reportable 02/09/21 10:59 [place] Rings Not Reportable 02/09/21 10:59 Antoine Cells Not Reportable 02/09/21 10:59 Bite Cells Not Reportable 02/09/21 10:59 Crenated Cell Not Reportable 02/09/21 10:59 Elliptocytes Not Reportable 02/09/21 10:59 Acanthocytes (Spur) Not Reportable 02/09/21 10:59 Rouleaux Not Reportable 02/09/21 10:59 Hemoglobin C Crystals Not Reportable 02/09/21 10:59 Schistocytes Not Reportable 02/09/21 10:59 Malaria parasites Not Reportable 02/09/21 10:59 Sickle Cell Solubility See scanned result 10/04/20 Unknown Hemoglobin A See scanned result 10/04/20 Unknown Hemoglobin A2 See scanned result 10/04/20 Unknown Hemoglobin A2 Prime See scanned result 10/04/20 Unknown Hemoglobin C See scanned result 10/04/20 Unknown Hemoglobin D See scanned result 10/04/20 Unknown Hemoglobin E See scanned result 10/04/20 Unknown Hgb F Diffential Stain See scanned result 10/04/20 Unknown Hemoglobin F Quant See scanned result 10/04/20 Unknown Hemoglobin G See scanned result 10/04/20 Unknown Hemoglobin S See scanned result 10/04/20 Unknown Hemoglobin O-Ethel See scanned result 10/04/20 Unknown Hemoglobin [place] See scanned result 10/04/20 Unknown Hemoglobin Analilia See scanned result 10/04/20 Unknown Variant Hemoglobin See scanned result 10/04/20 Unknown Abnorm Hgb IEF Confirm See scanned result 10/04/20 Unknown Hemoglobin Interpret See scanned result 10/04/20 Unknown Hemoglobinopathy Note See scanned result 10/04/20 Unknown Sharad Bodies Not Reportable 02/09/21 10:59 Hem Pathologist Commnt No 02/09/21 10:59 PT 13.6 Sec. (12.2-14.9) 10/21/20 13:54 INR 1.06 (0.87-1.13) 10/21/20 13:54 APTT 31.6 Sec. (24.2-36.6) 10/03/20 00:40 Fibrinogen 336 mg/dl (211-480) 10/04/20 10:00 D-Dimer 1974.47 ng/mlDDU (0-234) H 11/11/20 13:50 ABG pH 7.459 pH Units (7.350-7.450) H 10/26/20 10:30 POC ABG pCO2 20.7 mmHg (32.0-48.0) L 10/13/20 07:18 ABG pCO2 32.4 mm Hg 10/26/20 10:30 POC ABG pO2 137.9 mmHg (83-108) H 10/13/20 07:18 ABG pO2 112.2 mm Hg (80.0-90.0) H 10/26/20 10:30 POC ABG HCO3 14.8 10/13/20 07:18 ABG HCO3 22.5 mmol/L (20.0-26.0) 10/26/20 10:30 ABG O2 Saturation 98.2 % (95.0-99.0) 10/26/20 10:30 ABG O2 Content 18.5 (0.0-44) 10/26/20 10:30 POC ABG Base Excess -6.9 10/13/20 07:18 ABG Base Excess -0.6 mmol/L (-2.0-3.0) 10/26/20 10:30 ABG Hemoglobin 13.5 gm/dl (12.0-16.0) 10/26/20 10:30 ABG Oxyhemoglobin 98.3 (94-98) H 10/13/20 07:18 ABG Carboxyhemoglobin 1.3 % (0.0-5.0) 10/26/20 10:30 ABG Methemoglobin 0.5 % (0.0-1.5) 10/26/20 10:30 ABG Sodium 135.9 mmol/L (136.0-145.0) L 10/13/20 07:18 ABG Potassium 3.7 mmol/L (3.40-4.50) 10/13/20 07:18 ABG Chloride 111.0 mmol/L (98-107) H 10/13/20 07:18 ABG Glucose 109 mg/dL (65-95) H 10/13/20 07:18 VBG pH 6.949 (7.320-7.420) L* 10/02/20 Unknown Oxyhemoglobin 96.5 % (95.0-99.0) 10/26/20 10:30 Carboxyhemoglobin 0.3 (0.5-1.5) L 10/13/20 07:18 FiO2 25 % 10/26/20 10:30 Sodium 144 mmol/L (137-145) 03/04/21 04:46 Potassium 4.2 mmol/L (3.6-5.0) 03/04/21 04:46 Chloride 105.2 mmol/L (98-107) 03/04/21 04:46 Carbon Dioxide 26 mmol/L (22-30) 03/04/21 04:46 Anion Gap 17 mmol/L 03/04/21 04:46 BUN 15 mg/dL (7-17) 03/04/21 04:46 Creatinine 0.5 mg/dL (0.6-1.2) L 03/04/21 04:46 Estimated GFR > 60 ml/min 03/04/21 04:46 BUN/Creatinine Ratio 30 % 03/04/21 04:46 Glucose 96 mg/dL (65-100) 03/04/21 04:46 POC Glucose 89 mg/dL (70-105) 03/14/21 06:00 Random Insulin 43.2 uIU/mL (<=19.6) H 11/02/20 19:19 Proinsulin See scanned result 11/02/20 19:19 C-Peptide 6.23 ng/mL (0.80-3.85) H 11/02/20 19:19 Lactic Acid 1.90 mmol/L (0.7-2.0) 10/04/20 22:00 Uric Acid 7.5 mg/dL (3.5-7.6) 10/02/20 13:05 Calcium 10.0 mg/dL (8.4-10.2) 03/04/21 04:46 Ionized Calcium 4.4 mg/dL (4.8-5.6) L 10/07/20 21:00 Phosphorus 4.60 mg/dL (2.5-4.5) H 11/13/20 10:05 Magnesium 2.10 mg/dL (1.7-2.3) 11/13/20 10:05 Total Bilirubin 0.80 mg/dL (0.1-1.2) 03/04/21 04:46 AST 51 units/L (5-40) H 03/04/21 04:46 ALT 53 units/L (7-56) 03/04/21 04:46 Alkaline Phosphatase 117 units/L (35-129) 03/04/21 04:46 Lactate Dehydrogenase 769 units/L (91-180) H 10/02/20 13:05 C-Reactive Protein 0.70 mg/dL (0.00-1.30) 11/11/20 13:50 NT-Pro-B Natriuret Pep 2788 pg/mL (0-450) H 10/04/20 10:00 Total Protein 8.4 g/dL (6.3-8.2) H 03/04/21 04:46 Albumin 4.2 g/dL (3.9-5) 03/04/21 04:46 Albumin/Globulin Ratio 1.0 % 03/04/21 04:46 Procalcitonin < 0.05 ng/mL (<0.15) 03/02/21 02:30 Arterial Blood Glucose 109 mg/dL (65-95) H 10/13/20 07:18 Arterial Blood Ionized Calcium 4.6 mg/dL (4.6-5.3) 10/13/20 07:18 Urine Color Yellow (Yellow) 01/25/21 09:51 Urine Turbidity Cloudy (Clear) 01/25/21 09:51 Urine pH 7.0 (5.0-7.0) 01/25/21 09:51 Ur Specific [place] 1.011 (1.003-1.030) 01/25/21 09:51 Urine Protein <15 mg/dl mg/dL (Negative) 01/25/21 09:51 Urine Glucose (UA) Neg mg/dL (Negative) 01/25/21 09:51 Urine Ketones Neg mg/dL (Negative) 01/25/21 09:51 Urine Blood Neg (Negative) 01/25/21 09:51 Urine Nitrite Neg (Negative) 01/25/21 09:51 Urine Bilirubin Neg (Negative) 01/25/21 09:51 Urine Urobilinogen < 2.0 mg/dL (<2.0) 01/25/21 09:51 Ur Leukocyte Esterase Neg (Negative) 01/25/21 09:51 Urine WBC (Auto) 6.0 /HPF (0.0-6.0) 01/25/21 09:51 Urine RBC (Auto) 3.0 /HPF (0.0-6.0) 01/25/21 09:51 U Epithel Cells (Auto) < 1.0 /HPF (0-13.0) 01/25/21 09:51 Urine Bacteria (Auto) 1+ /HPF (Negative) 01/18/21 08:47 Urine WBC Clumps 3+ /HPF 11/11/20 13:50 Calcium Oxalate Crystal Few 11/11/20 13:50 Urine Mucus Few /HPF 01/25/21 09:51 Urine Yeast (Budding) 2+ /HPF 01/25/21 09:51 Vancomycin Trough 12.6 ug/mL (5.0-20.0) 10/21/20 13:54 Random Vancomycin 10.7 ug/mL (0-40.0) 10/16/20 13:09 Phenytoin 5.7 ug/mL (10.0-20.0) L 10/13/20 07:00 C. difficile Tox (PCR) Positive (Negative) 10/16/20 10:22 Coronavirus (PCR) Negative (Negative) 10/08/20 14:15 Blood Type O POSITIVE 10/02/20 12:50 Antibody Screen Negative 10/02/20 12:50 Crossmatch See Detail 10/02/20 12:50 - Diagnostic Impressions Diagnostic Impressions: Echocardiogram 10/03/20 13:42 Transthoracic Echocardiogram Indication: S/P Cardiac Arrest R/O Cardiomyopathy BP: 133/71 Conclusions *Global left ventricular systolic function is normal. *The estimated ejection fraction is 60-65%. *There is trace of mitral regurgitation. *The right 0heart chambers are both slightly dilated. *There is mild tricuspid regurgitation. *There is mild-moderate pulmonary hypertension. *The right ventricular systolic pressure is calculated at 44 mmHg. *The study quality is technically difficult. Findings Procedure Info: The study quality is technically difficult. The study is technically limited due to patient body habitus. The study was technically limited due to the patient's inability to lay in the left lateral decubitus position. Left Ventricle: The left ventricular chamber size is normal. There is no left ventricular hypertrophy. Global left ventricular systolic function is normal. The estimated ejection fraction is 60-65%. Left Atrium: The left atrial chamber size is normal. Right Ventricle: The right ventricle is slightly dilated. Right Atrium: The right atrium is mildly dilated. Aortic Valve: The aortic valve leaflets are mildly thickened. There is no evidence of aortic regurgitation. There is no evidence of aortic stenosis. Mitral Valve: The mitral valve leaflets are mildly thickened. There is trace of mitral regurgitation. There is no evidence of mitral stenosis. Tricuspid Valve: There is mild tricuspid regurgitation. The right ventricular systolic pressure is calculated at 44 mmHg. There is evidence of mild pulmonary hypertension. Pulmonic Valve: There is trace pulmonic regurgitation. Pericardium: There is no pericardial effusion. Aorta: There is no dilatation of the ascending aorta. There is no dilatation of the aortic root. Venous: The inferior vena cava is dilated. Measurements Chambers 2D Name Value Normal Range IVSd (2D) 1 cm (0.6 - 1.1) LVPWd (2D) 1.01 cm (0.6 - 1.1) LVIDd (2D) 4.58 cm (3.7 - 5.6) LVIDs (2D) 3.17 cm (2 - 3.8) LV FS (2D) 30.93 % - EF Teichholz (2D) 58.66 % - Ao root diameter (2D) 2.94 cm (2 - 3.7) Volumes/Mass Name Value Normal Range LA ESV SP 4CH (A/L) 72.82 ml - LA ESV SP 2CH (A/L) 66.86 ml - LA ESV BP (A/L) 74.49 ml - LA ESV SP 4CH (MOD) 71.03 ml - LA ESV SP 2CH (MOD) 64.3 ml - LV EDV SP 4CH (MOD) 98.82 ml - LV ESV SP 4CH (MOD) 24.8 ml - EF SP 4CH (MOD) 74.9 % - LV EDV SP 2CH (MOD) 86.1 ml - LV ESV SP 2CH (MOD) 36.93 ml - EF SP 2CH (MOD) 57.11 % - LV EDV BP 94.4 ml - LV ESV BP 32.66 ml - BP EF (MOD) 65.4 % - Diastolic/Systolic Function Name Value Normal Range MV E-wave Vmax 1.04 m/sec - MV deceleration time 160.46 msec - MV A-wave Vmax 0.92 m/sec - MV E:A ratio 1.14 ratio - Aortic Valve Name Value Normal Range AV Vmax 2.12 m/sec - AV VTI 22.37 cm - AV peak gradient 17.95 mmHg - AV mean gradient 7.29 mmHg - LVOT diameter 2.01 cm - LVOT Vmax 1.8 m/sec - LVOT VTI 27.17 cm - LVOT peak gradient 12.91 mmHg - LVOT mean gradient 6.83 mmHg - SV LVOT 86.42 ml - ANITA (continuity Vmax) 2.7 cm2 - ANITA (continuity VTI) 3.86 cm2 - Ascending Ao 3.18 cm - Tricuspid Valve Name Value Normal Range TV E-wave Vmax 0.88 m/sec - TR Vmax 3.01 m/sec - TR peak gradient 36.27 mmHg - RAP 8 mmHg - RVSP 44 mmHg - IVC diameter 2.65 cm (1.2 - 2.3) Pulmonic Valve/Qp:Qs Name Value Normal Range PV Vmax 1.22 m/sec - PV peak gradient 5.91 mmHg - RVOT Vmax 0.87 m/sec - RVOT VTI 13.32 cm - RVOT peak gradient 3 mmHg - PV acceleration time 110.37 msec - [place]/IV: Voiding Method Incontinent IV Catheter Type [Right Foot] INT / Saline Lock IV Catheter Type [Left Forearm Peripheral IV ] IV Catheter Type [Left Wrist] INT / Saline Lock IV Catheter Type [Right Hand] INT / Saline Lock IV Catheter Type [Right INT / Saline Lock Antecubital] IV Catheter Type [Right Upper Mid-line arm] IV Catheter Type [Left Triple Lumen Cath Internal Jugular] IV Catheter Type [Left Hand] Peripheral IV IV Catheter Type [Left Peripheral IV Antecubital] Active Medications - Current Medications Current Medications: Generic Name Dose Route Start Last Admin Trade Name Freq PRN Reason Stop Dose Admin Acetaminophen 650 mg 10/05/20 16:34 03/09/21 09:01 Acetaminophen 325 Mg/10.15 Ml Oral Liqd Unit Dose FEEDTUBE 650 mg Q6H PRN Administration Non Cardiac Pain or Temp>100.5 Albuterol 2.5 mg 11/05/20 13:03 11/06/20 13:04 Albuterol 2.5 Mg/3 Ml Nebu IH 2.5 mg Q4HRT PRN Administration Shortness Of Breath Alprazolam 0.25 mg 01/20/21 13:33 03/13/21 22:09 Alprazolam 0.25 Mg Tab PO 0.25 mg Q8H PRN Administration Anxiety Lipase/Protease/Amylase 1 each 10/05/20 11:09 Lipase 10,500/Protease 25,000/Amylase 43,750 (Units) Dr Barakat FEEDTUBE PRN PRN For Clogged Feeding Tube Enoxaparin Sodium 40 mg 10/22/20 10:00 03/13/21 11:55 Enoxaparin 40 Mg/0.4 Ml Inj SUB-Q 40 mg DAILY ERINN Administration Protocol Famotidine 20 mg 10/07/20 10:00 03/13/21 22:08 Famotidine 20 Mg Tab PO 20 mg BID ERINN Administration Hydrophilic Ointment 1 applic 01/03/21 13:00 02/16/21 09:56 Lip Therapy Vaseline TP 1 applic DIRECT PRN Administration Dry Lips Dextrose 1,000 mls @ 30 mls/hr 01/03/21 12:00 02/11/21 18:44 D5w IV 30 mls/hr DIRECT ERINN Administration Metoprolol Tartrate 50 mg 02/02/21 16:01 03/13/21 22:08 Metoprolol Tartrate 25 Mg Tab PO 50 mg BID ERINN Administration Morphine Sulfate 2 mg 01/20/21 13:33 Morphine 2 Mg/1 Ml Inj IV Q4H PRN Pain, Moderate (4-6) Ondansetron HCl 4 mg 02/10/21 11:38 02/10/21 13:18 Ondansetron 4 Mg/2 Ml Inj IV 4 mg Q4H PRN Administration Nausea And Vomiting Simple Syrup 15 ml 10/05/20 11:09 Simple Syrup 15 Ml FEEDTUBE PRN PRN Hypoglycemia Simple Syrup 30 ml 10/05/20 11:09 Simple Syrup 15 Ml FEEDTUBE PRN PRN Hypoglycemia Sodium Bicarbonate 325 mg 10/05/20 11:09 12/16/20 08:19 Sodium Bicarbonate 325 Mg Tab FEEDTUBE 325 mg PRN PRN Administration For Clogged Feeding Tube Nutrition/Malnutrition Assess - Dietary Evaluation Nutrition/Malnutrition Findings: Nutrition Notes Start: 10/04/20 11:13 Freq: Status: Active Protocol: Document 03/12/21 09:21 CW (Rec: 03/12/21 09:32 CW [id number]) Nutrition Notes Initial or Follow up Reassessment Other Pertinent Diagnosis s/p cardiac arrest x 2, anoxic brain injury Current Diet Promote at 65ml/hr Labs/Tests 03/04 labs reviewed Pertinent Medications Reviewed Height 5 ft 8 in Weight 90.1 kg [place] Body Weight (kg) 63.63 BMI 30.2 Weight change and time frame weight change noted. Weight Status Obese Subjective/Other Information F/U for TF tolerance. Parts Delivery Driver noted Osmolite 1.5 running at 65ml/hr RN alerted and changed . approximately 95% of bottle infused. Wt increase noted and reweight completed by this display card writer. Weight returning to UBW prior to edema. Will monitor for stable weights and adjust TF as prompted. Percent of energy/protein needs met: 99%/93% (950 ml of Osmolite) Burn Absent Trauma Absent GI Symptoms None Difficulty In Swallowing,Chewing Current % PO Negligible Minimum of two criteria Yes Fluid Accumulation Moderate to Severe (severe) #2 Nutrition Diagnosis Malnutrition As Evidenced by Signs and Symptoms no weight loss has occurred unrelated to post- weight loss or diuretics usage Diagnosis Progress(for reassessment Improved documentation) #1 Nutrition Diagnosis Inadequate oral intake Diagnosis Progress(for reassessment Continues documentation) Is patient on ventilator? No Is Patient Ambulatory and/or Out of Bed No REE-([facility]-confined to bed) 1992.392 Kcal/Kg value to use for calculation 16 Approximate Energy Requirements Using 1442 kcal/Kg Calculation Used for Recommendations Kcal/kg Additional Notes PRO needs: 64-80g (.8-1.0 g/kg AdBW 81kg) Fluid needs: 1 mL/kcal or per MD Nutrition Intervention Change Diet Order: Continue Nutrition Support: Promote at 65 mL/hr Flush 100 ml q4h Kcal 1,560 Protein (gm) 98 Fluid (mL) 1,309 Goal #1 TF tolerance Goal #2 TF to meet at least 75% estimated energy and protein needs. Anticipated Discharge Needs: Promote at 65 ml/hr Flush 100 ml q4h Follow-Up By: 03/17/21 Additional Comments F/U for stable weights and TF tolerance
[2021-03-14] MEDS: ENOXAPARIN 40 MG/0.4 ML INJ SUB-Q SCH (09:24)
[2021-03-14] MEDS: ALPRAZolam 0.25 MG TAB PO PRN ×2 (09:24→22:56)
[2021-03-14] MEDS: FAMOTIDINE 20 MG TAB PO SCH ×2 (09:24→22:55)
[2021-03-14] MEDS: METOPROLOL TARTRATE 25 MG TAB PO SCH ×2 (09:25→22:55)
--- NOTE | 2021-03-15 07:57 | Progress Note ---
Assessment and Plan Assessment and plan: --DIC (disseminated intravascular coagulation) vs HELLP syndrome Resolved --Possible Eclampsia/HELLP Syndrome Resolved --s/p Cardiac arrest x2 on admission and on 10/07 ACLS protocol followed by revival Echo showed preserved Ef --Anoxic brain injury, Developed following cardiac arrest, continue supportive care --Shock-resolved now awaiting placement s/p pressor support --ADOLPH-resolved Stable --Sepsis 2/2 UTI s/p cefepime to cover possible pseudomonas as sputum is also growing GN rods till 01/04/21 Previous urine culture grew pansensitive ecoli Blood cultures from 12/27-no growth --Hypernatremia, resolved, cont free water with TF --DVT prophylaxis Patient presented with DIC No anticoagulants Overall prognosis extremely poor. Daily clinical course 10/02/21 11:30: Pt brought to L&D triage for evaluation of possible labor. Pt accompanied by her spouse. Pt spouse poor historian; unable to obtain history- allergies at this time. Pt taken from registration to triage area via WC. Pt unresponsive, actively seizing with snorous respirations. sewer repairer, Kassy, called and requesting assistance. 11:35: Multiple staff at bedside. Pt 02 sat 67% on nonrebreather, unable to read BP at this time. Yifan Theodore CRNA, at bedside for intubation and assistance with IV insertion. INT attempt by multiple RNs unsuccessful at this time. 11:42: Pt being bagged by KORIN, 02% 79%. No pulse palpated, compressions started at this time; bharati young called and Dr. Newberry preparing OR for emergent c/s. 11:44: Continued compressions on stretcher while transporting pt to OR 1. Pt being bagged with jaw thrust manuever in place by KORIN Stringer student. 11:45: Arrival to OR 1. Dr. Newberry and Dr. Portillo present for emergent c/s. Code team arrived for continued care. patient revived and c/s done Patient has been bleeding from C/s site followed by supracervical hysterectomy for severe bleeding Patient transfused multiple units of PRBC, Patient in DIC. Transferred to the [facility] 10/03. Patient seen and examined at bedside this morning. Patient is nonresponsive and mechanically ventilated. On pressors. Labs reviewed-has leukocytosis, anemia, thrombocytopenia, ADOLPH and lactic acidosis. Started on IV antibiotics to cover possible sepsis secondary to DIC. Hematology oncology recommendations appreciated-needs additional cryoprecipitate and FFP. Monitor D-dimer, fibrinogen and frequent labs. Nephrology consulted for lactic acidosis and ADOLPH. 10/04. Remains mechanically ventilated. [place] antibiotics. Labs shows improved acidosis - lactic acid 3.5. Hb drop noted. Getting transfused 2 units PRBCs. Platelet count is ~40k. Continue to monitor labs closely. Critical care team on board. 10/05; xray reviewed, concerning for multifocal infilrate, likely underlying P[place], will add ID consult to assist with management of this critically ill patient, start tube feed, closely monitor renal system 10/06: Resumed care, remains on mechanical ventilation. No active bleeding, H&H stable. Continue to monitor CBC and BMP. Continue IV antibiotic for underlying pneumonia. Follow critical care and ID recommendation. 10/07: Remains on mechanical ventilation. No active bleeding, H&H stable. Critical care following, wean off ventilation as tolerated. 10/08: Patient had another cardiac arrest last night. Remains on mechanical ventilation, update family. Continue supportive care -poor prognosis 10/09: Called patient mother and discussed about patient care and management. Answered all question to best of my knowledge and family satisfaction. Patient remains on mechanical ventilation, cardiac arrest x2 so far. Critically sick, poor prognosis 10/10: remains on mechanical ventilation. h/h stable, no active bleeding. monitor CBC/BMP 10/11: WBC trended up with diarrhea, started on vancomycin po. remains on MV, off pressor, tolerating TF 10/12: remains on MV, off pressor, tolerating TF. called family for update but unable to reach, could not leave message as it was full. cont supportive care, wean off vent as tolerated. 10/13/2020; patient is on mechanical ventilation, tolerating tube feeding. Patient has labored breathing. Neuro was consulted and recommend MRI. Patient is on Precedex. Rectal tube in place. 10/14/2020; patient is on mechanical ventilation, Precedex. Patient had fever and blood culture ordered. Patient is on IV vancomycin per ID recommendation. Neuro consulted and recommend MRI. Continue to monitor. Prognosis is guarded. 10/15/2020; patient is on mechanical ventilation, Precedex. Patient had fever and blood culture ordered. Patient is on IV vancomycin per ID recommendation. Neuro consulted and recommend MRI. Continue to monitor. Prognosis is guarded. 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 12/06/20; anoxic brain injury. Awaiting placement. 12/07/2020; anoxic brain injury, awaiting placement. 12/09/2020; anoxic brain injury, awaiting placement. 12/10/2020; patient had episodes of fever overnight. CBC, BMP, blood culture, UA and chest x-ray ordered, will follow and manage accordingly. Urinalysis is suggestive of UTI and I put the patient on ceftriaxone, order urine culture. Chest x-ray is normal. 12/11/2020; patient is on ceftriaxone day 2 for UTI. We will continue to follow urine culture. 12/12/2020. Day #3 of Rocephin for UTI. We will continue for 2 more days while she is here. Present UTI. 12/13/2020. Day #4 of Rocephin for UTI. Patient remains on 50% with tracheost jayne. Remains unresponsive with evidence of anoxic encephalopathy unable to make needs known. 12/14/2020. Day #5 of Rocephin for UTI completed today. Remains encephalopathic unable to make needs known. Remains on 50% unable to decrease oxygen via tracheostomy. Overall prognosis remains extremely poor. 3: Continue to monitor. Stop and monitor antibiotics at this time. Continue to wean oxygen as tolerated. Wean oxygen as tolerated. Case management working on placement. 12/16: Continue supportive care aspiration precautions. Awaiting placement discussion. Monitor fever curve. Prognosis remains poor no evidence of neurological recovery as of today 3: Continue supportive care, check labs and chest xray. Still monitor off antibiotics. Monitor Sodium level 12/18: Patient remains with intermittent low grade fever, reviewed EEG from September again, consistent for Ischemic Hypoxic Encephalopathy, patient with decorticating posturing type presentation. Will discuss with ice cream freezer helper to opt imize diet so we can discontinue D5. CXR with no abnormality. Discussed extensively with the nursing staff at bedside CXR IMPRESSION: 1. No acute findings. 12/19: No clinical change 12/20: No clinical change, now off abx, monitor, discussed her medications with our pharmacist I believe that her posture and rigidity is likely from underlying anoxic encephalopathy. Continue to monitor and await placement decision. Continue aggressive suctioning. Plan discussed in detail with the nursing staff 12/21: Continue supportive care. Will give 500 cc bolus of fluid today to replace insensible losses. Tachycardia appears to be improving. Blood pressure precludes adjusting cardiac meds. Still awaiting placement from case management. Plan discussed in detail with the nursing staff 12/22. Continue support supportive care. Tracheostomy and PEG in place. Remains nonresponsive. Awaiting placement. 12/23. Continue support supportive care. Tracheostomy and PEG in place. Remains nonresponsive. Awaiting placement. Remains tachycardic. Decrease dose of lasix. Will try low dose metoprolol. Monitor BP closely 12/24. Continue support supportive care. Tracheostomy and PEG in place. Remains nonresponsive. Awaiting placement. Heart rate slightly better. Continue to monitor BP closely 12/25. Continue support supportive care. Tracheostomy and PEG in place. Remains nonresponsive. Awaiting placement. 12/26. Continue support supportive care. Tracheostomy and PEG in place. Remains nonresponsive. Awaiting placement 12/27. Continue support supportive care. Tracheostomy and PEG in place. Remains nonresponsive. Awaiting placement 12/28. Had fever yesterday. Blood culture drawn. UA - UTI - started on antibiotics. Now tracheal aspirate is growing GN rods. 12/29: Continue IV antibiotics, continue supportive care. Since admission patient has shown minimal or no chance of neurological recovery. Need 24/7 assistance. Currently on trach and PEG, nonverbal. Waiting on SNF placement. Discussed with returned case inspector today. 12/30: Continue IV antibiotics for UTI, continue supportive care. Pending placement 12/31: continue supportive care. continue supportive care. Pending placement 01/01: continue supportive care. Pending placement. cont Iv abx for UTI till 01/04 01/02: Continue supportive care, pending placement. Sodium level slightly elevated, will start hypotonic fluid. Continue antibiotics till 01/04 01/03; cont hypotonic fluid, increase free water with TF for hypernatremia, follow BMP. cont supportive care. pending placement. cont cefepime. recx blood 01/04: resolved hyponatremia, cont supportive care, pending placement. Last day of supplement today. 01/05: Continue supportive care, pending placement. Monitor H&H and fever curve off antibiotic. 01/06; monitor off abx, suction as needed, Continue supportive care, pending placement. 01/07: Discharge pending on placement, vitals stable. Continue supportive care 01/08: Discharge pending on placement, vitals stable. Continue supportive care. stop lasix, increase metoprolol to 25mg BID for ST. 01/09 patient resting with eyes closed. Opens eyes to tactile stimulus, has a blink reflex, does not follow simple commands, has a T-collar / G-tube Lab results reviewed, low-grade fever, 01/10 Eyes open, does not follow simple commands, no acute events overnight 01/11 no acute events overnight Waiting for placement 01/12 No acute events overnight. Patient awaiting for placement 01/13. No new issues. Awaiting placement 01/14. No new issues. Awaiting placement. 01/15. No new issues. Awaiting placement. 01/16. No new issues. Patient remain stable. Awaiting placement. Check maintenance labs. 01/17. Routine maintenance labs were ordered and are still pending. Await placement. 01/18. Patient with low-grade fever past 24-48 hrs. WBC within normal limits. Check chest x-ray, urinalysis and consider blood cultures. Continue tracheostomy care, secretion control and airway management. Patient currently with PEG and tube feedings at 60 cc an hour. Nutritional support and aspiration precautions. 01/19. Temperature 100.7 overnight. Continue to monitor closely. Continue tracheostomy care, secretion control and airway management. Patient currently with PEG and tube feedings at 60 cc an hour. Nutritional support and aspiration precautions. 01/20. Continue to monitor closely. Continue tracheostomy care, secretion control and airway management. Patient currently with PEG and tube feedings at 60 cc an hour. Nutritional support and aspiration precautions. 01/21. Afebrile overnight. Continue to monitor closely. Continue tracheostomy care, secretion control and airway management. Patient currently with PEG and tube feedings at 60 cc an hour. Nutritional support and aspiration precautions. 01/22. Continue to monitor closely. Continue tracheostomy care, secretion control and airway management. Patient currently with PEG and tube feedings at 60 cc an hour. Nutritional support and aspiration precautions. 01/23. Continue tracheostomy care, secretion control and airway management. Patient currently with PEG and tube feedings at 60 cc an hour. Nutritional support and aspiration precautions. Will get routine labs tomorrow. 01/24. Labs reviewed. No abnormalities. Continue tracheostomy care, secretion control and airway management. Patient currently with PEG and tube feedings at 60 cc an hour. Nutritional support and aspiration precautions. 01/25. Temp 100.6. More sleepy today. Will get chest xray, blood culture, urinalysis, sputum cultures. Will start on empirical abx. 01/26: Vitals noted, slightly tachycardic. Follow culture work-up, continue supportive care. 01/27: Spiking low-grade temp, negative UA, sputum culture and recent blood cultures also negative. Continue to monitor off antibiotics. Continue supportive care. Pending placement. 01/28: cont to spike low grade temp, negative UA, sputum culture and recent blood cultures also negative. Continue to monitor off antibiotics. will order fpr sinus xry. Continue supportive care. Pending placement. 01/29: Continue to follow clinically, intermittently spiking low-grade temp, all recent culture work is negative, negative UA, normal respiratory jayaln 1 tracheal aspirate. Vitals noted and currently stable. Pending placement 01/30: Clinically unchanged, continue to monitor vitals, continue supportive cares. Pending placement. Discussed plan of care with RN at the bedside. 01/31 - TODATE: cont supportive care, pending placement. monitor vitals carefully. Discussed with family at the bedside. 02/06. Patient afebrile today. Continue trach care. Secretions stable today. Culture data negative so far. Awaiting placement. 02/07. Awaiting placement awaiting family member to evaluate papers. Continue trach care secretions stable. Pending placement 02/09: Intermittent fever, ?drug related, will check cxr and also labs. No new complaints. 02/10: Patient's trach dislodged today. Nevertheless respiratory status is intact attempt to reinsert was unsuccessful will monitor discussed with nursing staff to pay close attention to the patient. Considering that this was not a planned decannulation I will start the patient on continuous pulse ox until full evaluation was done by pulmonary. 02/13/2021 Vital signs stable Unresponsive secondary to anoxic encephalopathy Awaiting placement 02/14/2021 Awaiting placement 02/15/2021 Anoxic encephalopathy Awaiting placement 02/16/2021 Anoxic encephalopathy Awaiting placement 02/17/2021 Anoxic encephalopathy awaiting placement 02/18/2021 Anoxic encephalopathy awaiting placement 02/19/2021 Anoxic encephalopathy awaiting placement 02/20/2021 Anoxic encephalopathy awaiting placement 02/21/2021 Anoxic encephalopathy awaiting placement 02/22/2021 Anoxic encephalopathy awaiting placement 02/23/2021 Anoxic encephalopathy awaiting placement 02/24/2021 Anoxic encephalopathy awaiting placement 02/25/2021 Anoxic encephalopathy waiting for placement 02/26 Awaiting placement 02/27. Awaiting placement 02/28. No change in medical condition. Awaiting placement 03/01. No medical changes noted. Awaiting placement 03/01. No medical changes noted. Awaiting placement 03/02. Had temperature more than 100 Fahrenheit. Ordered labs and chest x-ray. Labs reviewed. No pna and no leukocytosis. Procalcitonin negative. Blood cultures negative so far. Continue to monitor for now 03/03 - 03/11. No overnight events. Awaiting placement. 03/12-03/15. Awaiting placement. Continue trach care, secretion control and airway management. Gastrostomy tube care. Continue tube feedings per dietitian. Mobility protocols for pressure ulcer prophylaxis. Check routine labs History Interval history: 30 year old -[place] female CHE 10/25/20 at 36w5d who presents with seizures in triage on 10/02/20. Pt was not able to provide history but per pt's , she presented to the hospital to return a 24 hour urine specimen for analysis. She then suddenly reported that she did not feel good. She was taken to labor and delivery and shortly after arrival, she began seizing. During this time, a code met was called because the patient became hypoxic. She was then noted to be without a pulse. Chest compressions were started immediately, and the patient was emergently taken to the operating room for delivery of the fetus. Off note, This patient has had care at [facility] with comanagement by [facility] since 11 wks complicated by ADHD, morbid obesity, generalized anxiety disorder, panic attacks, chronic narcotic use, fibromyalgia, GERD, Irritable Bowel Syndrome, Migraines, h/o endometrial ablation and ovarian vein embolization, genital herpes, insomnia, LGA fetus, nausea and vomiting, polyhydramnios, quad screen positive for Down's Syndrome, and previous x 3. She was GBS negative. Hospitalist Physical - Constitutional Vitals: Temp Pulse Resp BP Pulse Ox 99.2 F 101 H 18 104/60 98 03/15/21 05:00 03/15/21 05:00 03/15/21 05:00 03/15/21 05:00 03/15/21 05:00 General appearance: Present: well-nourished, other (Anoxic encephalopathy) - EENT Eyes: Present: PERRL, EOM intact ENT: hearing intact, clear oral mucosa, dentition normal - Neck Neck: Present: supple, normal ROM - Respiratory Respiratory effort: normal Respiratory: bilateral: CTA - Cardiovascular Rhythm: regular Heart Sounds: Present: S1 & S2. Absent: gallop, rub - Extremities Extremities: no ischemia, No edema, Full ROM - Abdominal General gastrointestinal: soft, non-tender, non-distended, normal bowel sounds - Integumentary Integumentary: Present: clear, warm, dry - Neurologic Neurologic: CNII-XII intact, moves all extremities HEART Score - HEART Score Age: < 45 Risk factors: 1-2 risk factors - Critical Actions Critical Actions: >7 pts:50-65% risk of adverse cardiac event. Early invasive measures Results - Labs CBC & Chem 7: 03/04/21 04:46 03/04/21 04:46 Labs: Laboratory Last Values WBC 8.6 K/mm3 (4.5-11.0) 03/04/21 04:46 RBC 5.49 M/mm3 (3.65-5.03) H 03/04/21 04:46 Hgb 13.4 gm/dl (10.1-14.3) 03/04/21 04:46 Hgb Comment See scanned result 10/04/20 Unknown Hct 41.0 % (30.3-42.9) 03/04/21 04:46 MCV 75 fl (79-97) L 03/04/21 04:46 MCH 25 pg (28-32) L 03/04/21 04:46 MCHC 33 % (30-34) 03/04/21 04:46 RDW 15.3 % (13.2-15.2) H 03/04/21 04:46 Plt Count 298 K/mm3 (140-440) 03/04/21 04:46 Lymph % (Auto) 30.9 % (13.4-35.0) 03/04/21 04:46 Blair % (Auto) 9.1 % (0.0-7.3) H 03/04/21 04:46 Eos % (Auto) 2.1 % (0.0-4.3) 03/04/21 04:46 Baso % (Auto) 0.3 % (0.0-1.8) 03/04/21 04:46 Lymph # (Auto) 2.7 K/mm3 (1.2-5.4) 03/04/21 04:46 Blair # (Auto) 0.8 K/mm3 (0.0-0.8) 03/04/21 04:46 Eos # (Auto) 0.2 K/mm3 (0.0-0.4) 03/04/21 04:46 Baso # (Auto) 0.0 K/mm3 (0.0-0.1) 03/04/21 04:46 Add Manual Diff Complete 02/09/21 10:59 Total Counted 100 02/09/21 10:59 Seg Neutrophils % 57.6 % (40.0-70.0) 03/04/21 04:46 Seg Neuts % (Manual) 58.0 % (40.0-70.0) 02/09/21 10:59 Band Neutrophils % 2.0 % 10/15/20 05:50 Lymphocytes % (Manual) 29.0 % (13.4-35.0) 02/09/21 10:59 Reactive Lymphs % (Man) 1.0 % 10/02/20 12:18 Monocytes % (Manual) 13.0 % (0.0-7.3) H 02/09/21 10:59 Eosinophils % (Manual) 1.0 % (0.0-4.3) 10/29/20 07:56 Myelocytes % 2.0 % 10/02/20 13:05 Metamyelocytes % 1.0 % 10/14/20 04:00 Nucleated RBC % Not Reportable 02/09/21 10:59 Seg Neutrophils # 4.9 K/mm3 (1.8-7.7) 03/04/21 04:46 Seg Neutrophils # Man 3.7 K/mm3 (1.8-7.7) 02/09/21 10:59 Band Neutrophils # 0.0 K/mm3 02/09/21 10:59 Lymphocytes # (Manual) 1.8 K/mm3 (1.2-5.4) 02/09/21 10:59 Abs React Lymphs (Man) 0.0 K/mm3 02/09/21 10:59 Monocytes # (Manual) 0.8 K/mm3 (0.0-0.8) 02/09/21 10:59 Eosinophils # (Manual) 0.0 K/mm3 (0.0-0.4) 02/09/21 10:59 Basophils # (Manual) 0.0 K/mm3 (0.0-0.1) 02/09/21 10:59 Metamyelocytes # 0.0 K/mm3 02/09/21 10:59 Myelocytes # 0.0 K/mm3 02/09/21 10:59 Promyelocytes # 0.0 K/mm3 02/09/21 10:59 Blast Cells # 0.0 K/mm3 02/09/21 10:59 WBC Morphology Not Reportable 02/09/21 10:59 Hypersegmented Neuts Not Reportable 02/09/21 10:59 Hyposegmented Neuts Not Reportable 02/09/21 10:59 Hypogranular Neuts Not Reportable 02/09/21 10:59 Smudge Cells Not Reportable 02/09/21 10:59 Toxic Granulation Not Reportable 02/09/21 10:59 Toxic Vacuolation Not Reportable 02/09/21 10:59 Dohle Bodies Not Reportable 02/09/21 10:59 Pelger-Huet Anomaly Not Reportable 02/09/21 10:59 Ester Rods Not Reportable 02/09/21 10:59 Platelet Estimate Consistent w auto 02/09/21 10:59 Clumped Platelets Not Reportable 02/09/21 10:59 Plt Clumps, EDTA Not Reportable 02/09/21 10:59 Large Platelets Few 02/09/21 10:59 Giant Platelets Not Reportable 02/09/21 10:59 Platelet Satelliting Not Reportable 02/09/21 10:59 Plt Morphology Comment Not Reportable 02/09/21 10:59 RBC Morphology Not Reportable 02/09/21 10:59 Dimorphic RBCs Not Reportable 02/09/21 10:59 Polychromasia Not Reportable 02/09/21 10:59 Hypochromasia 1+ 02/09/21 10:59 Poikilocytosis Not Reportable 02/09/21 10:59 Anisocytosis Not Reportable 02/09/21 10:59 Microcytosis Not Reportable 02/09/21 10:59 Macrocytosis Not Reportable 02/09/21 10:59 Spherocytes Not Reportable 02/09/21 10:59 Pappenheimer Bodies Not Reportable 02/09/21 10:59 Sickle Cells Not Reportable 02/09/21 10:59 Target Cells Not Reportable 02/09/21 10:59 Tear Drop Cells Not Reportable 02/09/21 10:59 Ovalocytes Not Reportable 02/09/21 10:59 Stomatocytes Few 10/14/20 04:00 Helmet Cells Not Reportable 02/09/21 10:59 [place] Bodies Not Reportable 02/09/21 10:59 Childs Rings Not Reportable 02/09/21 10:59 [place] Cells Not Reportable 02/09/21 10:59 Bite Cells Not Reportable 02/09/21 10:59 Crenated Cell Not Reportable 02/09/21 10:59 Elliptocytes Not Reportable 02/09/21 10:59 Acanthocytes (Spur) Not Reportable 02/09/21 10:59 Rouleaux Not Reportable 02/09/21 10:59 Hemoglobin C Crystals Not Reportable 02/09/21 10:59 Schistocytes Not Reportable 02/09/21 10:59 Malaria parasites Not Reportable 02/09/21 10:59 Sickle Cell Solubility See scanned result 10/04/20 Unknown Hemoglobin A See scanned result 10/04/20 Unknown Hemoglobin A2 See scanned result 10/04/20 Unknown Hemoglobin A2 Prime See scanned result 10/04/20 Unknown Hemoglobin C See scanned result 10/04/20 Unknown Hemoglobin D See scanned result 10/04/20 Unknown Hemoglobin E See scanned result 10/04/20 Unknown Hgb F Diffential Stain See scanned result 10/04/20 Unknown Hemoglobin F Quant See scanned result 10/04/20 Unknown Hemoglobin G See scanned result 10/04/20 Unknown Hemoglobin S See scanned result 10/04/20 Unknown Hemoglobin [place] See scanned result 10/04/20 Unknown Hemoglobin [place] See scanned result 10/04/20 Unknown Hemoglobin Analilia See scanned result 10/04/20 Unknown Variant Hemoglobin See scanned result 10/04/20 Unknown Abnorm Hgb IEF Confirm See scanned result 10/04/20 Unknown Hemoglobin Interpret See scanned result 10/04/20 Unknown Hemoglobinopathy Note See scanned result 10/04/20 Unknown Sharad Bodies Not Reportable 02/09/21 10:59 Hem Pathologist Commnt No 02/09/21 10:59 PT 13.6 Sec. (12.2-14.9) 10/21/20 13:54 INR 1.06 (0.87-1.13) 10/21/20 13:54 APTT 31.6 Sec. (24.2-36.6) 10/03/20 00:40 Fibrinogen 336 mg/dl (211-480) 10/04/20 10:00 D-Dimer 1974.47 ng/mlDDU (0-234) H 11/11/20 13:50 ABG pH 7.459 pH Units (7.350-7.450) H 10/26/20 10:30 POC ABG pCO2 20.7 mmHg (32.0-48.0) L 10/13/20 07:18 ABG pCO2 32.4 mm Hg 10/26/20 10:30 POC ABG pO2 137.9 mmHg (83-108) H 10/13/20 07:18 ABG pO2 112.2 mm Hg (80.0-90.0) H 10/26/20 10:30 POC ABG HCO3 14.8 10/13/20 07:18 ABG HCO3 22.5 mmol/L (20.0-26.0) 10/26/20 10:30 ABG O2 Saturation 98.2 % (95.0-99.0) 10/26/20 10:30 ABG O2 Content 18.5 (0.0-44) 10/26/20 10:30 POC ABG Base Excess -6.9 10/13/20 07:18 ABG Base Excess -0.6 mmol/L (-2.0-3.0) 10/26/20 10:30 ABG Hemoglobin 13.5 gm/dl (12.0-16.0) 10/26/20 10:30 ABG Oxyhemoglobin 98.3 (94-98) H 10/13/20 07:18 ABG Carboxyhemoglobin 1.3 % (0.0-5.0) 10/26/20 10:30 ABG Methemoglobin 0.5 % (0.0-1.5) 10/26/20 10:30 ABG Sodium 135.9 mmol/L (136.0-145.0) L 10/13/20 07:18 ABG Potassium 3.7 mmol/L (3.40-4.50) 10/13/20 07:18 ABG Chloride 111.0 mmol/L (98-107) H 10/13/20 07:18 ABG Glucose 109 mg/dL (65-95) H 10/13/20 07:18 VBG pH 6.949 (7.320-7.420) L* 10/02/20 Unknown Oxyhemoglobin 96.5 % (95.0-99.0) 10/26/20 10:30 Carboxyhemoglobin 0.3 (0.5-1.5) L 10/13/20 07:18 FiO2 25 % 10/26/20 10:30 Sodium 144 mmol/L (137-145) 03/04/21 04:46 Potassium 4.2 mmol/L (3.6-5.0) 03/04/21 04:46 Chloride 105.2 mmol/L (98-107) 03/04/21 04:46 Carbon Dioxide 26 mmol/L (22-30) 03/04/21 04:46 Anion Gap 17 mmol/L 03/04/21 04:46 BUN 15 mg/dL (7-17) 03/04/21 04:46 Creatinine 0.5 mg/dL (0.6-1.2) L 03/04/21 04:46 Estimated GFR > 60 ml/min 03/04/21 04:46 BUN/Creatinine Ratio 30 % 03/04/21 04:46 Glucose 96 mg/dL (65-100) 03/04/21 04:46 POC Glucose 98 mg/dL (70-105) 03/15/21 05:28 Random Insulin 43.2 uIU/mL (<=19.6) H 11/02/20 19:19 Proinsulin See scanned result 11/02/20 19:19 C-Peptide 6.23 ng/mL (0.80-3.85) H 11/02/20 19:19 Lactic Acid 1.90 mmol/L (0.7-2.0) 10/04/20 22:00 Uric Acid 7.5 mg/dL (3.5-7.6) 10/02/20 13:05 Calcium 10.0 mg/dL (8.4-10.2) 03/04/21 04:46 Ionized Calcium 4.4 mg/dL (4.8-5.6) L 10/07/20 21:00 Phosphorus 4.60 mg/dL (2.5-4.5) H 11/13/20 10:05 Magnesium 2.10 mg/dL (1.7-2.3) 11/13/20 10:05 Total Bilirubin 0.80 mg/dL (0.1-1.2) 03/04/21 04:46 AST 51 units/L (5-40) H 03/04/21 04:46 ALT 53 units/L (7-56) 03/04/21 04:46 Alkaline Phosphatase 117 units/L (35-129) 03/04/21 04:46 Lactate Dehydrogenase 769 units/L (91-180) H 10/02/20 13:05 C-Reactive Protein 0.70 mg/dL (0.00-1.30) 11/11/20 13:50 NT-Pro-B Natriuret Pep 2788 pg/mL (0-450) H 10/04/20 10:00 Total Protein 8.4 g/dL (6.3-8.2) H 03/04/21 04:46 Albumin 4.2 g/dL (3.9-5) 03/04/21 04:46 Albumin/Globulin Ratio 1.0 % 03/04/21 04:46 Procalcitonin < 0.05 ng/mL (<0.15) 03/02/21 02:30 Arterial Blood Glucose 109 mg/dL (65-95) H 10/13/20 07:18 Arterial Blood Ionized Calcium 4.6 mg/dL (4.6-5.3) 10/13/20 07:18 Urine Color Yellow (Yellow) 01/25/21 09:51 Urine Turbidity Cloudy (Clear) 01/25/21 09:51 Urine pH 7.0 (5.0-7.0) 01/25/21 09:51 Ur Specific [place] 1.011 (1.003-1.030) 01/25/21 09:51 Urine Protein <15 mg/dl mg/dL (Negative) 01/25/21 09:51 Urine Glucose (UA) Neg mg/dL (Negative) 01/25/21 09:51 Urine Ketones Neg mg/dL (Negative) 01/25/21 09:51 Urine Blood Neg (Negative) 01/25/21 09:51 Urine Nitrite Neg (Negative) 01/25/21 09:51 Urine Bilirubin Neg (Negative) 01/25/21 09:51 Urine Urobilinogen < 2.0 mg/dL (<2.0) 01/25/21 09:51 Ur Leukocyte Esterase Neg (Negative) 01/25/21 09:51 Urine WBC (Auto) 6.0 /HPF (0.0-6.0) 01/25/21 09:51 Urine RBC (Auto) 3.0 /HPF (0.0-6.0) 01/25/21 09:51 U Epithel Cells (Auto) < 1.0 /HPF (0-13.0) 01/25/21 09:51 Urine Bacteria (Auto) 1+ /HPF (Negative) 01/18/21 08:47 Urine WBC Clumps 3+ /HPF 11/11/20 13:50 Calcium Oxalate Crystal Few 11/11/20 13:50 Urine Mucus Few /HPF 01/25/21 09:51 Urine Yeast (Budding) 2+ /HPF 01/25/21 09:51 Vancomycin Trough 12.6 ug/mL (5.0-20.0) 10/21/20 13:54 Random Vancomycin 10.7 ug/mL (0-40.0) 10/16/20 13:09 Phenytoin 5.7 ug/mL (10.0-20.0) L 10/13/20 07:00 C. difficile Tox (PCR) Positive (Negative) 10/16/20 10:22 Coronavirus (PCR) Negative (Negative) 10/08/20 14:15 Blood Type O POSITIVE 10/02/20 12:50 Antibody Screen Negative 10/02/20 12:50 Crossmatch See Detail 10/02/20 12:50 - Diagnostic Impressions Diagnostic Impressions: Echocardiogram 10/03/20 13:42 Transthoracic Echocardiogram Indication: S/P Cardiac Arrest R/O Cardiomyopathy BP: 133/71 Conclusions *Global left ventricular systolic function is normal. *The estimated ejection fraction is 60-65%. *There is trace of mitral regurgitation. *The right 0heart chambers are both slightly dilated. *There is mild tricuspid regurgitation. *There is mild-moderate pulmonary hypertension. *The right ventricular systolic pressure is calculated at 44 mmHg. *The study quality is technically difficult. Findings Procedure Info: The study quality is technically difficult. The study is technically limited due to patient body habitus. The study was technically limited due to the patient's inability to lay in the left lateral decubitus position. Left Ventricle: The left ventricular chamber size is normal. There is no left ventricular hypertrophy. Global left ventricular systolic function is normal. The estimated ejection fraction is 60-65%. Left Atrium: The left atrial chamber size is normal. Right Ventricle: The right ventricle is slightly dilated. Right Atrium: The right atrium is mildly dilated. Aortic Valve: The aortic valve leaflets are mildly thickened. There is no evidence of aortic regurgitation. There is no evidence of aortic stenosis. Mitral Valve: The mitral valve leaflets are mildly thickened. There is trace of mitral regurgitation. There is no evidence of mitral stenosis. Tricuspid Valve: There is mild tricuspid regurgitation. The right ventricular systolic pressure is calculated at 44 mmHg. There is evidence of mild pulmonary hypertension. Pulmonic Valve: There is trace pulmonic regurgitation. Pericardium: There is no pericardial effusion. Aorta: There is no dilatation of the ascending aorta. There is no dilatation of the aortic root. Venous: The inferior vena cava is dilated. Measurements Chambers 2D Name Value Normal Range IVSd (2D) 1 cm (0.6 - 1.1) LVPWd (2D) 1.01 cm (0.6 - 1.1) LVIDd (2D) 4.58 cm (3.7 - 5.6) LVIDs (2D) 3.17 cm (2 - 3.8) LV FS (2D) 30.93 % - EF Teichholz (2D) 58.66 % - Ao root diameter (2D) 2.94 cm (2 - 3.7) Volumes/Mass Name Value Normal Range LA ESV SP 4CH (A/L) 72.82 ml - LA ESV SP 2CH (A/L) 66.86 ml - LA ESV BP (A/L) 74.49 ml - LA ESV SP 4CH (MOD) 71.03 ml - LA ESV SP 2CH (MOD) 64.3 ml - LV EDV SP 4CH (MOD) 98.82 ml - LV ESV SP 4CH (MOD) 24.8 ml - EF SP 4CH (MOD) 74.9 % - LV EDV SP 2CH (MOD) 86.1 ml - LV ESV SP 2CH (MOD) 36.93 ml - EF SP 2CH (MOD) 57.11 % - LV EDV BP 94.4 ml - LV ESV BP 32.66 ml - BP EF (MOD) 65.4 % - Diastolic/Systolic Function Name Value Normal Range MV E-wave Vmax 1.04 m/sec - MV deceleration time 160.46 msec - MV A-wave Vmax 0.92 m/sec - MV E:A ratio 1.14 ratio - Aortic Valve Name Value Normal Range AV Vmax 2.12 m/sec - AV VTI 22.37 cm - AV peak gradient 17.95 mmHg - AV mean gradient 7.29 mmHg - LVOT diameter 2.01 cm - LVOT Vmax 1.8 m/sec - LVOT VTI 27.17 cm - LVOT peak gradient 12.91 mmHg - LVOT mean gradient 6.83 mmHg - SV LVOT 86.42 ml - ANITA (continuity Vmax) 2.7 cm2 - ANITA (continuity VTI) 3.86 cm2 - Ascending Ao 3.18 cm - Tricuspid Valve Name Value Normal Range TV E-wave Vmax 0.88 m/sec - TR Vmax 3.01 m/sec - TR peak gradient 36.27 mmHg - RAP 8 mmHg - RVSP 44 mmHg - IVC diameter 2.65 cm (1.2 - 2.3) Pulmonic Valve/Qp:Qs Name Value Normal Range PV Vmax 1.22 m/sec - PV peak gradient 5.91 mmHg - RVOT Vmax 0.87 m/sec - RVOT VTI 13.32 cm - RVOT peak gradient 3 mmHg - PV acceleration time 110.37 msec - [place]/IV: Voiding Method Incontinent IV Catheter Type [Right Foot] INT / Saline Lock IV Catheter Type [Left Forearm Peripheral IV ] IV Catheter Type [Left Wrist] INT / Saline Lock IV Catheter Type [Right Hand] INT / Saline Lock IV Catheter Type [Right INT / Saline Lock Antecubital] IV Catheter Type [Right Upper Mid-line arm] IV Catheter Type [Left Triple Lumen Cath Internal Jugular] IV Catheter Type [Left Hand] Peripheral IV IV Catheter Type [Left Peripheral IV Antecubital] Active Medications - Current Medications Current Medications: Generic Name Dose Route Start Last Admin Trade Name Freq PRN Reason Stop Dose Admin Acetaminophen 650 mg 10/05/20 16:34 03/09/21 09:01 Acetaminophen 325 Mg/10.15 Ml Oral Liqd Unit Dose FEEDTUBE 650 mg Q6H PRN Administration Non Cardiac Pain or Temp>100.5 Albuterol 2.5 mg 11/05/20 13:03 11/06/20 13:04 Albuterol 2.5 Mg/3 Ml Nebu IH 2.5 mg Q4HRT PRN Administration Shortness Of Breath Alprazolam 0.25 mg 01/20/21 13:33 03/14/21 22:56 Alprazolam 0.25 Mg Tab PO 0.25 mg Q8H PRN Administration Anxiety Lipase/Protease/Amylase 1 each 10/05/20 11:09 Lipase 10,500/Protease 25,000/Amylase 43,750 (Units) Dr Barakat FEEDTUBE PRN PRN For Clogged Feeding Tube Enoxaparin Sodium 40 mg 10/22/20 10:00 03/14/21 09:24 Enoxaparin 40 Mg/0.4 Ml Inj SUB-Q 40 mg DAILY ERINN Administration Protocol Famotidine 20 mg 10/07/20 10:00 03/14/21 22:55 Famotidine 20 Mg Tab PO 20 mg BID ERINN Administration Hydrophilic Ointment 1 applic 01/03/21 13:00 02/16/21 09:56 Lip Therapy Vaseline TP 1 applic DIRECT PRN Administration Dry Lips Dextrose 1,000 mls @ 30 mls/hr 01/03/21 12:00 02/11/21 18:44 D5w IV 30 mls/hr DIRECT ERINN Administration Metoprolol Tartrate 50 mg 02/02/21 16:01 03/14/21 22:55 Metoprolol Tartrate 25 Mg Tab PO 50 mg BID ERINN Administration Morphine Sulfate 2 mg 01/20/21 13:33 Morphine 2 Mg/1 Ml Inj IV Q4H PRN Pain, Moderate (4-6) Ondansetron HCl 4 mg 02/10/21 11:38 02/10/21 13:18 Ondansetron 4 Mg/2 Ml Inj IV 4 mg Q4H PRN Administration Nausea And Vomiting Simple Syrup 15 ml 10/05/20 11:09 Simple Syrup 15 Ml FEEDTUBE PRN PRN Hypoglycemia Simple Syrup 30 ml 10/05/20 11:09 Simple Syrup 15 Ml FEEDTUBE PRN PRN Hypoglycemia Sodium Bicarbonate 325 mg 10/05/20 11:09 12/16/20 08:19 Sodium Bicarbonate 325 Mg Tab FEEDTUBE 325 mg PRN PRN Administration For Clogged Feeding Tube Nutrition/Malnutrition Assess - Dietary Evaluation Nutrition/Malnutrition Findings: Nutrition Notes Start: 10/04/20 11 :13 Freq: Status: Active Protocol: Document 03/12/21 09:21 CW (Rec: 03/12/21 09:32 CW [id number]) Nutrition Notes Initial or Follow up Reassessment Other Pertinent Diagnosis s/p cardiac arrest x 2, anoxic brain injury Current Diet Promote at 65ml/hr Labs/Tests 03/04 labs reviewed Pertinent Medications Reviewed Height 5 ft 8 in Weight 90.1 kg [place] Body Weight (kg) 63.63 BMI 30.2 Weight change and time frame weight change noted. Weight Status Obese Subjective/Other Information F/U for TF tolerance. [employer] noted Osmolite 1.5 running at 65ml/hr RN alerted and changed . approximately 95% of bottle infused. Wt increase noted and reweight completed by this service writer. Weight returning to UBW prior to edema. Will monitor for stable weights and adjust TF as prompted. Percent of energy/protein needs met: 99%/93% (950 ml of Osmolite) Burn Absent Trauma Absent GI Symptoms None Difficulty In Swallowing,Chewing Current % PO Negligible Minimum of two criteria Yes Fluid Accumulation Moderate to Severe (severe) #2 Nutrition Diagnosis Malnutrition As Evidenced by Signs and Symptoms no weight loss has occurred unrelated to post- weight loss or diuretics usage Diagnosis Progress(for reassessment Improved documentation) #1 Nutrition Diagnosis Inadequate oral intake Diagnosis Progress(for reassessment Continues documentation) Is patient on ventilator? No Is Patient Ambulatory and/or Out of Bed No REE-([facility]-confined to bed) 1992.392 Kcal/Kg value to use for calculation 16 Approximate Energy Requirements Using 1442 kcal/Kg Calculation Used for Recommendations Kcal/kg Additional Notes PRO needs: 64-80g (.8-1.0 g/kg AdBW 81kg) Fluid needs: 1 mL/kcal or per MD Nutrition Intervention Change Diet Order: Continue Nutrition Support: Promote at 65 mL/hr Flush 100 ml q4h Kcal 1,560 Protein (gm) 98 Fluid (mL) 1,309 Goal #1 TF tolerance Goal #2 TF to meet at least 75% estimated energy and protein needs. Anticipated Discharge Needs: Promote at 65 ml/hr Flush 100 ml q4h Follow-Up By: 03/17/21 Additional Comments F/U for stable weights and TF tolerance
[2021-03-15] MEDS: FAMOTIDINE 20 MG TAB PO SCH ×2 (09:32→22:04)
[2021-03-15] MEDS: METOPROLOL TARTRATE 25 MG TAB PO SCH ×2 (09:32→22:05)
[2021-03-15] MEDS: ENOXAPARIN 40 MG/0.4 ML INJ SUB-Q SCH (09:32)
[2021-03-15] MEDS: ALPRAZolam 0.25 MG TAB PO PRN (22:04)
[2021-03-15] MEDS: ACETAMINOPHEN 325 MG/10.15 ML ORAL LIQD UNIT DOSE FEEDTUBE PRN (22:09)
[2021-03-16 05:08] LABS: Basophils % (Auto) 0.5 % (0.0-1.8); Eosinophils # (Auto) 0.2 K/mm3 (0.0-0.4); Eosinophils % (Auto) 1.7 % (0.0-4.3); Hematocrit 37.6 % (30.3-42.9); Hemoglobin 12.2 gm/dl (10.1-14.3); Lymphocytes # (Auto) 3.1 K/mm3 (1.2-5.4); Lymphocytes % (Auto) 33.5 % (13.4-35.0); Mean Corpuscular HGB Conc 33 % (30-34); Mean Corpuscular Volume 74 fl (79-97); Monocytes # (Auto) 0.8 K/mm3 (0.0-0.8); Monocytes % (Auto) 8.1 % (0.0-7.3); Platelet Count 311 K/mm3 (140-440); Red Blood Count 5.06 M/mm3 (3.65-5.03); Red Cell Distribution Width 15.8 % (13.2-15.2)
[2021-03-16 05:24] LABS: Blood Urea Nitrogen 12 mg/dL (7-17); Calcium 9.6 mg/dL (8.4-10.2); Hemolysis Index 0
[2021-03-16 05:25] LABS: BUN/Creatinine Ratio 24
[2021-03-16] MEDS: FAMOTIDINE 20 MG TAB PO SCH ×2 (09:15→22:50)
[2021-03-16] MEDS: METOPROLOL TARTRATE 25 MG TAB PO SCH ×2 (09:15→22:50)
[2021-03-16] MEDS: ENOXAPARIN 40 MG/0.4 ML INJ SUB-Q SCH (09:15)
[2021-03-16] MEDS: ALPRAZolam 0.25 MG TAB PO PRN (18:25)
[2021-03-17] MEDS: ALPRAZolam 0.25 MG TAB PO PRN (05:43)
--- NOTE | 2021-03-17 07:35 | Progress Note ---
Assessment and Plan Assessment and plan: --DIC (disseminated intravascular coagulation) vs HELLP syndrome Resolved --Possible Eclampsia/HELLP Syndrome Resolved --s/p Cardiac arrest x2 on admission and on 10/07 ACLS protocol followed by revival Echo showed preserved Ef --Anoxic brain injury, Developed following cardiac arrest, continue supportive care --Shock-resolved now awaiting placement s/p pressor support --ADOLPH-resolved Stable --Sepsis 2/2 UTI s/p cefepime to cover possible pseudomonas as sputum is also growing GN rods till 01/04/21 Previous urine culture grew pansensitive ecoli Blood cultures from 12/27-no growth --Hypernatremia, resolved, cont free water with TF --DVT prophylaxis Patient presented with DIC No anticoagulants Overall prognosis extremely poor. Daily clinical course 10/02/21 11:30: Pt brought to L&D triage for evaluation of possible labor. Pt accompanied by her spouse. Pt spouse poor historian; unable to obtain history- allergies at this time. Pt taken from registration to triage area via WC. Pt unresponsive, actively seizing with snorous respirations. advertising display rotator, Kassy, called and requesting assistance. 11:35: Multiple staff at bedside. Pt 02 sat 67% on nonrebreather, unable to read BP at this time. Yifan Theodore CRNA, at bedside for intubation and assistance with IV insertion. INT attempt by multiple RNs unsuccessful at this time. 11:42: Pt being bagged by KORIN, 02% 79%. No pulse palpated, compressions started at this time; bharati young called and Dr. Newberry preparing OR for emergent c/s. 11:44: Continued compressions on stretcher while transporting pt to OR 1. Pt being bagged with jaw thrust manuever in place by KORIN Stringer student. 11:45: Arrival to OR 1. Dr. Newberry and Dr. Portillo present for emergent c/s. Code team arrived for continued care. patient revived and c/s done Patient has been bleeding from C/s site followed by supracervical hysterectomy for severe bleeding Patient transfused multiple units of PRBC, Patient in DIC. Transferred to the [facility] 10/03. Patient seen and examined at bedside this morning. Patient is nonresponsive and mechanically ventilated. On pressors. Labs reviewed-has leukocytosis, anemia, thrombocytopenia, ADOLPH and lactic acidosis. Started on IV antibiotics to cover possible sepsis secondary to DIC. Hematology oncology recommendations appreciated-needs additional cryoprecipitate and FFP. Monitor D-dimer, fibrinogen and frequent labs. Nephrology consulted for lactic acidosis and ADOLPH. 10/04. Remains mechanically ventilated. Axtell antibiotics. Labs shows improved acidosis - lactic acid 3.5. Hb drop noted. Getting transfused 2 units PRBCs. Platelet count is ~40k. Continue to monitor labs closely. Critical care team on board. 10/05; xray reviewed, concerning for multifocal infilrate, likely underlying Pne umonia, will add ID consult to assist with management of this critically ill patient, start tube feed, closely monitor renal system 10/06: Resumed care, remains on mechanical ventilation. No active bleeding, H&H stable. Continue to monitor CBC and BMP. Continue IV antibiotic for underlying pneumonia. Follow critical care and ID recommendation. 10/07: Remains on mechanical ventilation. No active bleeding, H&H stable. Critical care following, wean off ventilation as tolerated. 10/08: Patient had another cardiac arrest last night. Remains on mechanical ventilation, update family. Continue supportive care -poor prognosis 10/09: Called patient mother and discussed about patient care and management. Answered all question to best of my knowledge and family satisfaction. Patient remains on mechanical ventilation, cardiac arrest x2 so far. Critically sick, poor prognosis 10/10: remains on mechanical ventilation. h/h stable, no active bleeding. monitor CBC/BMP 10/11: WBC trended up with diarrhea, started on vancomycin po. remains on MV, off pressor, tolerating TF 10/12: remains on MV, off pressor, tolerating TF. called family for update but unable to reach, could not leave message as it was full. cont supportive care, wean off vent as tolerated. 10/13/2020; patient is on mechanical ventilation, tolerating tube feeding. Patient has labored breathing. Neuro was consulted and recommend MRI. Patient is on Precedex. Rectal tube in place. 10/14/2020; patient is on mechanical ventilation, Precedex. Patient had fever and blood culture ordered. Patient is on IV vancomycin per ID recommendation. Neuro consulted and recommend MRI. Continue to monitor. Prognosis is guarded. 10/15/2020; patient is on mechanical ventilation, Precedex. Patient had fever and blood culture ordered. Patient is on IV vancomycin per ID recommendation. Neuro consulted and recommend MRI. Continue to monitor. Prognosis is guarded. 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 12/06/20; anoxic brain injury. Awaiting placement. 12/07/2020; anoxic brain injury, awaiting placement. 12/09/2020; anoxic brain injury, awaiting placement. 12/10/2020; patient had episodes of fever overnight. CBC, BMP, blood culture, UA and chest x-ray ordered, will follow and manage accordingly. Urinalysis is suggestive of UTI and I put the patient on ceftriaxone, order urine culture. Chest x-ray is normal. 12/11/2020; patient is on ceftriaxone day 2 for UTI. We will continue to follow urine culture. 12/12/2020. Day #3 of Rocephin for UTI. We will continue for 2 more days while she is here. Present UTI. 12/13/2020. Day #4 of Rocephin for UTI. Patient remains on 50% with tracheost jayne. Remains unresponsive with evidence of anoxic encephalopathy unable to make needs known. 12/14/2020. Day #5 of Rocephin for UTI completed today. Remains encephalopathic unable to make needs known. Remains on 50% unable to decrease oxygen via tracheostomy. Overall prognosis remains extremely poor. 3: Continue to monitor. Stop and monitor antibiotics at this time. Continue to wean oxygen as tolerated. Wean oxygen as tolerated. Case management working on placement. 12/16: Continue supportive care aspiration precautions. Awaiting placement discussion. Monitor fever curve. Prognosis remains poor no evidence of neurological recovery as of today 3: Continue supportive care, check labs and chest xray. Still monitor off antibiotics. Monitor Sodium level 12/18: Patient remains with intermittent low grade fever, reviewed EEG from September again, consistent for Ischemic Hypoxic Encephalopathy, patient with decorticating posturing type presentation. Will discuss with paperhanger pipe to opt imize diet so we can discontinue D5. CXR with no abnormality. Discussed extensively with the nursing staff at bedside CXR IMPRESSION: 1. No acute findings. 12/19: No clinical change 12/20: No clinical change, now off abx, monitor, discussed her medications with our pharmacist I believe that her posture and rigidity is likely from underlying anoxic encephalopathy. Continue to monitor and await placement decision. Continue aggressive suctioning. Plan discussed in detail with the nursing staff 12/21: Continue supportive care. Will give 500 cc bolus of fluid today to replace insensible losses. Tachycardia appears to be improving. Blood pressure precludes adjusting cardiac meds. Still awaiting placement from case management. Plan discussed in detail with the nursing staff 12/22. Continue support supportive care. Tracheostomy and PEG in place. Remains nonresponsive. Awaiting placement. 12/23. Continue support supportive care. Tracheostomy and PEG in place. Remains nonresponsive. Awaiting placement. Remains tachycardic. Decrease dose of lasix. Will try low dose metoprolol. Monitor BP closely 12/24. Continue support supportive care. Tracheostomy and PEG in place. Remains nonresponsive. Awaiting placement. Heart rate slightly better. Continue to monitor BP closely 12/25. Continue support supportive care. Tracheostomy and PEG in place. Remains nonresponsive. Awaiting placement. 12/26. Continue support supportive care. Tracheostomy and PEG in place. Remains nonresponsive. Awaiting placement 12/27. Continue support supportive care. Tracheostomy and PEG in place. Remains nonresponsive. Awaiting placement 12/28. Had fever yesterday. Blood culture drawn. UA - UTI - started on antibiotics. Now tracheal aspirate is growing GN rods. 12/29: Continue IV antibiotics, continue supportive care. Since admission patient has shown minimal or no chance of neurological recovery. Need 24/7 assistance. Currently on trach and PEG, nonverbal. Waiting on SNF placement. Discussed with telehealth case manager today. 12/30: Continue IV antibiotics for UTI, continue supportive care. Pending placement 12/31: continue supportive care. continue supportive care. Pending placement 01/01: continue supportive care. Pending placement. cont Iv abx for UTI till 01/04 01/02: Continue supportive care, pending placement. Sodium level slightly elevated, will start hypotonic fluid. Continue antibiotics till 01/04 01/03; cont hypotonic fluid, increase free water with TF for hypernatremia, follow BMP. cont supportive care. pending placement. cont cefepime. recx blood 01/04: resolved hyponatremia, cont supportive care, pending placement. Last day of supplement today. 01/05: Continue supportive care, pending placement. Monitor H&H and fever curve off antibiotic. 01/06; monitor off abx, suction as needed, Continue supportive care, pending placement. 01/07: Discharge pending on placement, vitals stable. Continue supportive care 01/08: Discharge pending on placement, vitals stable. Continue supportive care. stop lasix, increase metoprolol to 25mg BID for ST. 01/09 patient resting with eyes closed. Opens eyes to tactile stimulus, has a blink reflex, does not follow simple commands, has a T-collar / G-tube Lab results reviewed, low-grade fever, 01/10 Eyes open, does not follow simple commands, no acute events overnight 01/11 no acute events overnight Waiting for placement 01/12 No acute events overnight. Patient awaiting for placement 01/13. No new issues. Awaiting placement 01/14. No new issues. Awaiting placement. 01/15. No new issues. Awaiting placement. 01/16. No new issues. Patient remain stable. Awaiting placement. Check maintenance labs. 01/17. Routine maintenance labs were ordered and are still pending. Await placement. 01/18. Patient with low-grade fever past 24-48 hrs. WBC within normal limits. Check chest x-ray, urinalysis and consider blood cultures. Continue tracheostomy care, secretion control and airway management. Patient currently with PEG and tube feedings at 60 cc an hour. Nutritional support and aspiration precautions. 01/19. Temperature 100.7 overnight. Continue to monitor closely. Continue tracheostomy care, secretion control and airway management. Patient currently with PEG and tube feedings at 60 cc an hour. Nutritional support and aspiration precautions. 01/20. Continue to monitor closely. Continue tracheostomy care, secretion control and airway management. Patient currently with PEG and tube feedings at 60 cc an hour. Nutritional support and aspiration precautions. 01/21. Afebrile overnight. Continue to monitor closely. Continue tracheostomy care, secretion control and airway management. Patient currently with PEG and tube feedings at 60 cc an hour. Nutritional support and aspiration precautions. 01/22. Continue to monitor closely. Continue tracheostomy care, secretion control and airway management. Patient currently with PEG and tube feedings at 60 cc an hour. Nutritional support and aspiration precautions. 01/23. Continue tracheostomy care, secretion control and airway management. Patient currently with PEG and tube feedings at 60 cc an hour. Nutritional support and aspiration precautions. Will get routine labs tomorrow. 01/24. Labs reviewed. No abnormalities. Continue tracheostomy care, secretion control and airway management. Patient currently with PEG and tube feedings at 60 cc an hour. Nutritional support and aspiration precautions. 01/25. Temp 100.6. More sleepy today. Will get chest xray, blood culture, urinalysis, sputum cultures. Will start on empirical abx. 01/26: Vitals noted, slightly tachycardic. Follow culture work-up, continue supportive care. 01/27: Spiking low-grade temp, negative UA, sputum culture and recent blood cultures also negative. Continue to monitor off antibiotics. Continue supportive care. Pending placement. 01/28: cont to spike low grade temp, negative UA, sputum culture and recent blood cultures also negative. Continue to monitor off antibiotics. will order fpr sinus xry. Continue supportive care. Pending placement. 01/29: Continue to follow clinically, intermittently spiking low-grade temp, all recent culture work is negative, negative UA, normal respiratory jaylan 1 tracheal aspirate. Vitals noted and currently stable. Pending placement 01/30: Clinically unchanged, continue to monitor vitals, continue supportive cares. Pending placement. Discussed plan of care with RN at the bedside. 01/31 - TODATE: cont supportive care, pending placement. monitor vitals carefully. Discussed with family at the bedside. 02/06. Patient afebrile today. Continue trach care. Secretions stable today. Culture data negative so far. Awaiting placement. 02/07. Awaiting placement awaiting family member to evaluate papers. Continue trach care secretions stable. Pending placement 02/09: Intermittent fever, ?drug related, will check cxr and also labs. No new complaints. 02/10: Patient's trach dislodged today. Nevertheless respiratory status is intact attempt to reinsert was unsuccessful will monitor discussed with nursing staff to pay close attention to the patient. Considering that this was not a planned decannulation I will start the patient on continuous pulse ox until full evaluation was done by pulmonary. 02/13/2021 Vital signs stable Unresponsive secondary to anoxic encephalopathy Awaiting placement 02/14/2021 Awaiting placement 02/15/2021 Anoxic encephalopathy Awaiting placement 02/16/2021 Anoxic encephalopathy Awaiting placement 02/17/2021 Anoxic encephalopathy awaiting placement 02/18/2021 Anoxic encephalopathy awaiting placement 02/19/2021 Anoxic encephalopathy awaiting placement 02/20/2021 Anoxic encephalopathy awaiting placement 02/21/2021 Anoxic encephalopathy awaiting placement 02/22/2021 Anoxic encephalopathy awaiting placement 02/23/2021 Anoxic encephalopathy awaiting placement 02/24/2021 Anoxic encephalopathy awaiting placement 02/25/2021 Anoxic encephalopathy waiting for placement 02/26 Awaiting placement 02/27. Awaiting placement 02/28. No change in medical condition. Awaiting placement 03/01. No medical changes noted. Awaiting placement 03/01. No medical changes noted. Awaiting placement 03/02. Had temperature more than 100 Fahrenheit. Ordered labs and chest x-ray. Labs reviewed. No pna and no leukocytosis. Procalcitonin negative. Blood cultures negative so far. Continue to monitor for now 03/03 - 03/11. No overnight events. Awaiting placement. 03/12-03/15. Awaiting placement. Continue trach care, secretion control and airway management. Gastrostomy tube care. Continue tube feedings per dietitian. Mobility protocols for pressure ulcer prophylaxis. Check routine labs 03/16/2021; Awaiting placement. Patient is on PEG tube feeding. Saturating well on room air. Patient is mildly tachycardic. Pending placement. 03/16/2021; Awaiting placement. Patient is on PEG tube feeding. Saturating well on room air. Patient is mildly tachycardic. Pending placement. History Interval history: 30 year old -Slov[place] female CHE 10/25/20 at 36w5d who presents with seizures in triage on 10/02/20. Pt was not able to provide history but per pt's , she presented to the hospital to return a 24 hour urine specimen for analysis. She then suddenly reported that she did not feel good. She was taken to labor and delivery and shortly after arrival, she began seizing. During this time, a code met was called because the patient became hypoxic. She was then noted to be without a pulse. Chest compressions were started immediately, and the patient was emergently taken to the operating room for delivery of the fetus. Off note, This patient has had care at [facility] with comanagement by [facility] since 11 wks complicated by ADHD, morbid obesity, generalized anxiety disorder, panic attacks, chronic narcotic use, fibromyalgia, GERD, Irritable Bowel Syndrome, Migraines, h/o endometrial ablation and ovarian vein embolization, genital herpes, insomnia, LGA fetus, nausea and vomiting, polyhydramnios, quad screen positive for Down's Syndrome, and previous x 3. She was GBS negative. History Interval history: Patient was seen and evaluated this morning Patient was saturating 91% on room air Patient is does not follow commands Patient has contracted extremities Hospitalist Physical - Physical exam Narrative exam: VITAL SIGNS: Reviewed. GENERAL: On trach and PEG HEAD: No signs of head trauma. EYES: Pupils are equal. MOUTH: OT in place NECK: No adenopathy, no JVD. CHEST: Rales posteriorly CARDIAC: normal S1 and S2, without murmurs, gallops, or rubs. Tachycardia. ABDOMEN: Soft, non tender and non distended. surgical wound in tact, No rebound or guarding, and no masses palpated. Bowel Sounds normal. MUSCULOSKELETAL: No edema Extremities; contracted NEUROLOGIC EXAM: Does not follow command. SKIN: No obvious lesions - Constitutional Vitals: Temp Pulse Resp BP Pulse Ox 98.9 F 98 H 16 102/82 100 03/17/21 05:08 03/17/21 05:08 03/17/21 05:08 03/17/21 05:08 03/17/21 05:08 General appearance: Present: well-nourished, other (Anoxic encephalopathy) HEART Score - HEART Score Age: < 45 Risk factors: 1-2 risk factors - Critical Actions Critical Actions: >7 pts:50-65% risk of adverse cardiac event. Early invasive measures Results - Labs CBC & Chem 7: 03/16/21 04:42 03/16/21 04:42 Labs: Laboratory Last Values WBC 9.4 K/mm3 (4.5-11.0) 03/16/21 04:42 RBC 5.06 M/mm3 (3.65-5.03) H 03/16/21 04:42 Hgb 12.2 gm/dl (10.1-14.3) 03/16/21 04:42 Hgb Comment See scanned result 10/04/20 Unknown Hct 37.6 % (30.3-42.9) 03/16/21 04:42 MCV 74 fl (79-97) L 03/16/21 04:42 MCH 24 pg (28-32) L 03/16/21 04:42 MCHC 33 % (30-34) 03/16/21 04:42 RDW 15.8 % (13.2-15.2) H 03/16/21 04:42 Plt Count 311 K/mm3 (140-440) 03/16/21 04:42 Lymph % (Auto) 33.5 % (13.4-35.0) 03/16/21 04:42 [place] % (Auto) 8.1 % (0.0-7.3) H 03/16/21 04:42 Eos % (Auto) 1.7 % (0.0-4.3) 03/16/21 04:42 Baso % (Auto) 0.5 % (0.0-1.8) 03/16/21 04:42 Lymph # (Auto) 3.1 K/mm3 (1.2-5.4) 03/16/21 04:42 [place] # (Auto) 0.8 K/mm3 (0.0-0.8) 03/16/21 04:42 Eos # (Auto) 0.2 K/mm3 (0.0-0.4) 03/16/21 04:42 Baso # (Auto) 0.0 K/mm3 (0.0-0.1) 03/16/21 04:42 Add Manual Diff Complete 02/09/21 10:59 Total Counted 100 02/09/21 10:59 Seg Neutrophils % 56.2 % (40.0-70.0) 03/16/21 04:42 Seg Neuts % (Manual) 58.0 % (40.0-70.0) 02/09/21 10:59 Band Neutrophils % 2.0 % 10/15/20 05:50 Lymphocytes % (Manual) 29.0 % (13.4-35.0) 02/09/21 10:59 Reactive Lymphs % (Man) 1.0 % 10/02/20 12:18 Monocytes % (Manual) 13.0 % (0.0-7.3) H 02/09/21 10:59 Eosinophils % (Manual) 1.0 % (0.0-4.3) 10/29/20 07:56 Myelocytes % 2.0 % 10/02/20 13:05 Metamyelocytes % 1.0 % 10/14/20 04:00 Nucleated RBC % Not Reportable 02/09/21 10:59 Seg Neutrophils # 5.3 K/mm3 (1.8-7.7) 03/16/21 04:42 Seg Neutrophils # Man 3.7 K/mm3 (1.8-7.7) 02/09/21 10:59 Band Neutrophils # 0.0 K/mm3 02/09/21 10:59 Lymphocytes # (Manual) 1.8 K/mm3 (1.2-5.4) 02/09/21 10:59 Abs React Lymphs (Man) 0.0 K/mm3 02/09/21 10:59 Monocytes # (Manual) 0.8 K/mm3 (0.0-0.8) 02/09/21 10:59 Eosinophils # (Manual) 0.0 K/mm3 (0.0-0.4) 02/09/21 10:59 Basophils # (Manual) 0.0 K/mm3 (0.0-0.1) 02/09/21 10:59 Metamyelocytes # 0.0 K/mm3 02/09/21 10:59 Myelocytes # 0.0 K/mm3 02/09/21 10:59 Promyelocytes # 0.0 K/mm3 02/09/21 10:59 Blast Cells # 0.0 K/mm3 02/09/21 10:59 WBC Morphology Not Reportable 02/09/21 10:59 Hypersegmented Neuts Not Reportable 02/09/21 10:59 Hyposegmented Neuts Not Reportable 02/09/21 10:59 Hypogranular Neuts Not Reportable 02/09/21 10:59 Smudge Cells Not Reportable 02/09/21 10:59 Toxic Granulation Not Reportable 02/09/21 10:59 Toxic Vacuolation Not Reportable 02/09/21 10:59 Dohle Bodies Not Reportable 02/09/21 10:59 Pelger-Huet Anomaly Not Reportable 02/09/21 10:59 Ester Rods Not Reportable 02/09/21 10:59 Platelet Estimate Consistent w auto 02/09/21 10:59 Clumped Platelets Not Reportable 02/09/21 10:59 Plt Clumps, EDTA Not Reportable 02/09/21 10:59 Large Platelets Few 02/09/21 10:59 Giant Platelets Not Reportable 02/09/21 10:59 Platelet Satelliting Not Reportable 02/09/21 10:59 Plt Morphology Comment Not Reportable 02/09/21 10:59 RBC Morphology Not Reportable 02/09/21 10:59 Dimorphic RBCs Not Reportable 02/09/21 10:59 Polychromasia Not Reportable 02/09/21 10:59 Hypochromasia 1+ 02/09/21 10:59 Poikilocytosis Not Reportable 02/09/21 10:59 Anisocytosis Not Reportable 02/09/21 10:59 Microcytosis Not Reportable 02/09/21 10:59 Macrocytosis Not Reportable 02/09/21 10:59 Spherocytes Not Reportable 02/09/21 10:59 Pappenheimer Bodies Not Reportable 02/09/21 10:59 Sickle Cells Not Reportable 02/09/21 10:59 Target Cells Not Reportable 02/09/21 10:59 Tear Drop Cells Not Reportable 02/09/21 10:59 Ovalocytes Not Reportable 02/09/21 10:59 Stomatocytes Few 10/14/20 04:00 Helmet Cells Not Reportable 02/09/21 10:59 [place] Bodies Not Reportable 02/09/21 10:59 [place] Rings Not Reportable 02/09/21 10:59 [place] Cells Not Reportable 02/09/21 10:59 Bite Cells Not Reportable 02/09/21 10:59 Crenated Cell Not Reportable 02/09/21 10:59 Elliptocytes Not Reportable 02/09/21 10:59 Acanthocytes (Spur) Not Reportable 02/09/21 10:59 Rouleaux Not Reportable 02/09/21 10:59 Hemoglobin C Crystals Not Reportable 02/09/21 10:59 Schistocytes Not Reportable 02/09/21 10:59 Malaria parasites Not Reportable 02/09/21 10:59 Sickle Cell Solubility See scanned result 10/04/20 Unknown Hemoglobin A See scanned result 10/04/20 Unknown Hemoglobin A2 See scanned result 10/04/20 Unknown Hemoglobin A2 Prime See scanned result 10/04/20 Unknown Hemoglobin C See scanned result 10/04/20 Unknown Hemoglobin D See scanned result 10/04/20 Unknown Hemoglobin E See scanned result 10/04/20 Unknown Hgb F Diffential Stain See scanned result 10/04/20 Unknown Hemoglobin F Quant See scanned result 10/04/20 Unknown Hemoglobin G See scanned result 10/04/20 Unknown Hemoglobin S See scanned result 10/04/20 Unknown Hemoglobin [place] See scanned result 10/04/20 Unknown Hemoglobin [place] See scanned result 10/04/20 Unknown Hemoglobin Analilia See scanned result 10/04/20 Unknown Variant Hemoglobin See scanned result 10/04/20 Unknown Abnorm Hgb IEF Confirm See scanned result 10/04/20 Unknown Hemoglobin Interpret See scanned result 10/04/20 Unknown Hemoglobinopathy Note See scanned result 10/04/20 Unknown Sharad Bodies Not Reportable 02/09/21 10:59 Hem Pathologist Commnt No 02/09/21 10:59 PT 13.6 Sec. (12.2-14.9) 10/21/20 13:54 INR 1.06 (0.87-1.13) 10/21/20 13:54 APTT 31.6 Sec. (24.2-36.6) 10/03/20 00:40 Fibrinogen 336 mg/dl (211-480) 10/04/20 10:00 D-Dimer 1974.47 ng/mlDDU (0-234) H 11/11/20 13:50 ABG pH 7.459 pH Units (7.350-7.450) H 10/26/20 10:30 POC ABG pCO2 20.7 mmHg (32.0-48.0) L 10/13/20 07:18 ABG pCO2 32.4 mm Hg 10/26/20 10:30 POC ABG pO2 137.9 mmHg (83-108) H 10/13/20 07:18 ABG pO2 112.2 mm Hg (80.0-90.0) H 10/26/20 10:30 POC ABG HCO3 14.8 10/13/20 07:18 ABG HCO3 22.5 mmol/L (20.0-26.0) 10/26/20 10:30 ABG O2 Saturation 98.2 % (95.0-99.0) 10/26/20 10:30 ABG O2 Content 18.5 (0.0-44) 10/26/20 10:30 POC ABG Base Excess -6.9 10/13/20 07:18 ABG Base Excess -0.6 mmol/L (-2.0-3.0) 10/26/20 10:30 ABG Hemoglobin 13.5 gm/dl (12.0-16.0) 10/26/20 10:30 ABG Oxyhemoglobin 98.3 (94-98) H 10/13/20 07:18 ABG Carboxyhemoglobin 1.3 % (0.0-5.0) 10/26/20 10:30 ABG Methemoglobin 0.5 % (0.0-1.5) 10/26/20 10:30 ABG Sodium 135.9 mmol/L (136.0-145.0) L 10/13/20 07:18 ABG Potassium 3.7 mmol/L (3.40-4.50) 10/13/20 07:18 ABG Chloride 111.0 mmol/L (98-107) H 10/13/20 07:18 ABG Glucose 109 mg/dL (65-95) H 10/13/20 07:18 VBG pH 6.949 (7.320-7.420) L* 10/02/20 Unknown Oxyhemoglobin 96.5 % (95.0-99.0) 10/26/20 10:30 Carboxyhemoglobin 0.3 (0.5-1.5) L 10/13/20 07:18 FiO2 25 % 10/26/20 10:30 Sodium 140 mmol/L (137-145) 03/16/21 04:42 Potassium 3.9 mmol/L (3.6-5.0) 03/16/21 04:42 Chloride 103.1 mmol/L (98-107) 03/16/21 04:42 Carbon Dioxide 25 mmol/L (22-30) 03/16/21 04:42 Anion Gap 16 mmol/L 03/16/21 04:42 BUN 12 mg/dL (7-17) 03/16/21 04:42 Creatinine 0.5 mg/dL (0.6-1.2) L 03/16/21 04:42 Estimated GFR > 60 ml/min 03/16/21 04:42 BUN/Creatinine Ratio 24 % 03/16/21 04:42 Glucose 95 mg/dL (65-100) 03/16/21 04:42 POC Glucose 97 mg/dL (70-105) 03/17/21 05:52 Random Insulin 43.2 uIU/mL (<=19.6) H 11/02/20 19:19 Proinsulin See scanned result 11/02/20 19:19 C-Peptide 6.23 ng/mL (0.80-3.85) H 11/02/20 19:19 Lactic Acid 1.90 mmol/L (0.7-2.0) 10/04/20 22:00 Uric Acid 7.5 mg/dL (3.5-7.6) 10/02/20 13:05 Calcium 9.6 mg/dL (8.4-10.2) 03/16/21 04:42 Ionized Calcium 4.4 mg/dL (4.8-5.6) L 10/07/20 21:00 Phosphorus 4.60 mg/dL (2.5-4.5) H 11/13/20 10:05 Magnesium 2.10 mg/dL (1.7-2.3) 11/13/20 10:05 Total Bilirubin 0.80 mg/dL (0.1-1.2) 03/04/21 04:46 AST 51 units/L (5-40) H 03/04/21 04:46 ALT 53 units/L (7-56) 03/04/21 04:46 Alkaline Phosphatase 117 units/L (35-129) 03/04/21 04:46 Lactate Dehydrogenase 769 units/L (91-180) H 10/02/20 13:05 C-Reactive Protein 0.70 mg/dL (0.00-1.30) 11/11/20 13:50 NT-Pro-B Natriuret Pep 2788 pg/mL (0-450) H 10/04/20 10:00 Total Protein 8.4 g/dL (6.3-8.2) H 03/04/21 04:46 Albumin 4.2 g/dL (3.9-5) 03/04/21 04:46 Albumin/Globulin Ratio 1.0 % 03/04/21 04:46 Procalcitonin < 0.05 ng/mL (<0.15) 03/02/21 02:30 Arterial Blood Glucose 109 mg/dL (65-95) H 10/13/20 07:18 Arterial Blood Ionized Calcium 4.6 mg/dL (4.6-5.3) 10/13/20 07:18 Urine Color Yellow (Yellow) 01/25/21 09:51 Urine Turbidity Cloudy (Clear) 01/25/21 09:51 Urine pH 7.0 (5.0-7.0) 01/25/21 09:51 Ur Specific Jackson 1.011 (1.003-1.030) 01/25/21 09:51 Urine Protein <15 mg/dl mg/dL (Negative) 01/25/21 09:51 Urine Glucose (UA) Neg mg/dL (Negative) 01/25/21 09:51 Urine Ketones Neg mg/dL (Negative) 01/25/21 09:51 Urine Blood Neg (Negative) 01/25/21 09:51 Urine Nitrite Neg (Negative) 01/25/21 09:51 Urine Bilirubin Neg (Negative) 01/25/21 09:51 Urine Urobilinogen < 2.0 mg/dL (<2.0) 01/25/21 09:51 Ur Leukocyte Esterase Neg (Negative) 01/25/21 09:51 Urine WBC (Auto) 6.0 /HPF (0.0-6.0) 01/25/21 09:51 Urine RBC (Auto) 3.0 /HPF (0.0-6.0) 01/25/21 09:51 U Epithel Cells (Auto) < 1.0 /HPF (0-13.0) 01/25/21 09:51 Urine Bacteria (Auto) 1+ /HPF (Negative) 01/18/21 08:47 Urine WBC Clumps 3+ /HPF 11/11/20 13:50 Calcium Oxalate Crystal Few 11/11/20 13:50 Urine Mucus Few /HPF 01/25/21 09:51 Urine Yeast (Budding) 2+ /HPF 01/25/21 09:51 Vancomycin Trough 12.6 ug/mL (5.0-20.0) 10/21/20 13:54 Random Vancomycin 10.7 ug/mL (0-40.0) 10/16/20 13:09 Phenytoin 5.7 ug/mL (10.0-20.0) L 10/13/20 07:00 C. difficile Tox (PCR) Positive (Negative) 10/16/20 10:22 Coronavirus (PCR) Negative (Negative) 10/08/20 14:15 Blood Type O POSITIVE 10/02/20 12:50 Antibody Screen Negative 10/02/20 12:50 Crossmatch See Detail 10/02/20 12:50 - Diagnostic Impressions Diagnostic Impressions: Echocardiogram 10/03/20 13:42 Transthoracic Echocardiogram Indication: S/P Cardiac Arrest R/O Cardiomyopathy BP: 133/71 Conclusions *Global left ventricular systolic function is normal. *The estimated ejection fraction is 60-65%. *There is trace of mitral regurgitation. *The right 0heart chambers are both slightly dilated. *There is mild tricuspid regurgitation. *There is mild-moderate pulmonary hypertension. *The right ventricular systolic pressure is calculated at 44 mmHg. *The study quality is technically difficult. Findings Procedure Info: The study quality is technically difficult. The study is technically limited due to patient body habitus. The study was technically limited due to the patient's inability to lay in the left lateral decubitus position. Left Ventricle: The left ventricular chamber size is normal. There is no left ventricular hypertrophy. Global left ventricular systolic function is normal. The estimated ejection fraction is 60-65%. Left Atrium: The left atrial chamber size is normal. Right Ventricle: The right ventricle is slightly dilated. Right Atrium: The right atrium is mildly dilated. Aortic Valve: The aortic valve leaflets are mildly thickened. There is no evidence of aortic regurgitation. There is no evidence of aortic stenosis. Mitral Valve: The mitral valve leaflets are mildly thickened. There is trace of mitral regurgitation. There is no evidence of mitral stenosis. Tricuspid Valve: There is mild tricuspid regurgitation. The right ventricular systolic pressure is calculated at 44 mmHg. There is evidence of mild pulmonary hypertension. Pulmonic Valve: There is trace pulmonic regurgitation. Pericardium: There is no pericardial effusion. Aorta: There is no dilatation of the ascending aorta. There is no dilatation of the aortic root. Venous: The inferior vena cava is dilated. Measurements Chambers 2D Name Value Normal Range IVSd (2D) 1 cm (0.6 - 1.1) LVPWd (2D) 1.01 cm (0.6 - 1.1) LVIDd (2D) 4.58 cm (3.7 - 5.6) LVIDs (2D) 3.17 cm (2 - 3.8) LV FS (2D) 30.93 % - EF Teichholz (2D) 58.66 % - Ao root diameter (2D) 2.94 cm (2 - 3.7) Volumes/Mass Name Value Normal Range LA ESV SP 4CH (A/L) 72.82 ml - LA ESV SP 2CH (A/L) 66.86 ml - LA ESV BP (A/L) 74.49 ml - LA ESV SP 4CH (MOD) 71.03 ml - LA ESV SP 2CH (MOD) 64.3 ml - LV EDV SP 4CH (MOD) 98.82 ml - LV ESV SP 4CH (MOD) 24.8 ml - EF SP 4CH (MOD) 74.9 % - LV EDV SP 2CH (MOD) 86.1 ml - LV ESV SP 2CH (MOD) 36.93 ml - EF SP 2CH (MOD) 57.11 % - LV EDV BP 94.4 ml - LV ESV BP 32.66 ml - BP EF (MOD) 65.4 % - Diastolic/Systolic Function Name Value Normal Range MV E-wave Vmax 1.04 m/sec - MV deceleration time 160.46 msec - MV A-wave Vmax 0.92 m/sec - MV E:A ratio 1.14 ratio - Aortic Valve Name Value Normal Range AV Vmax 2.12 m/sec - AV VTI 22.37 cm - AV peak gradient 17.95 mmHg - AV mean gradient 7.29 mmHg - LVOT diameter 2.01 cm - LVOT Vmax 1.8 m/sec - LVOT VTI 27.17 cm - LVOT peak gradient 12.91 mmHg - LVOT mean gradient 6.83 mmHg - SV LVOT 86.42 ml - ANITA (continuity Vmax) 2.7 cm2 - ANITA (continuity VTI) 3.86 cm2 - Ascending Ao 3.18 cm - Tricuspid Valve Name Value Normal Range TV E-wave Vmax 0.88 m/sec - TR Vmax 3.01 m/sec - TR peak gradient 36.27 mmHg - RAP 8 mmHg - RVSP 44 mmHg - IVC diameter 2.65 cm (1.2 - 2.3) Pulmonic Valve/Qp:Qs Name Value Normal Range PV Vmax 1.22 m/sec - PV peak gradient 5.91 mmHg - RVOT Vmax 0.87 m/sec - RVOT VTI 13.32 cm - RVOT peak gradient 3 mmHg - PV acceleration time 110.37 msec - [place]/IV: Voiding Method Incontinent IV Catheter Type [Right Foot] INT / Saline Lock IV Catheter Type [Left Forearm Peripheral IV ] IV Catheter Type [Left Wrist] INT / Saline Lock IV Catheter Type [Right Hand] INT / Saline Lock IV Catheter Type [Right INT / Saline Lock Antecubital] IV Catheter Type [Right Upper Mid-line arm] IV Catheter Type [Left Triple Lumen Cath Internal Jugular] IV Catheter Type [Left Hand] Peripheral IV IV Catheter Type [Left Peripheral IV Antecubital] Active Medications - Current Medications Current Medications: Generic Name Dose Route Start Last Admin Trade Name Freq PRN Reason Stop Dose Admin Acetaminophen 650 mg 10/05/20 16:34 03/15/21 22:09 Acetaminophen 325 Mg/10.15 Ml Oral Liqd Unit Dose FEEDTUBE 650 mg Q6H PRN Administration Non Cardiac Pain or Temp>100.5 Albuterol 2.5 mg 11/05/20 13:03 11/06/20 13:04 Albuterol 2.5 Mg/3 Ml Nebu IH 2.5 mg Q4HRT PRN Administration Shortness Of Breath Alprazolam 0.25 mg 01/20/21 13:33 03/17/21 05:43 Alprazolam 0.25 Mg Tab PO 0.25 mg Q8H PRN Administration Anxiety Lipase/Protease/Amylase 1 each 10/05/20 11:09 Lipase 10,500/Protease 25,000/Amylase 43,750 (Units) Dr Barakat FEEDTUBE PRN PRN For Clogged Feeding Tube Enoxaparin Sodium 40 mg 10/22/20 10:00 03/16/21 09:15 Enoxaparin 40 Mg/0.4 Ml Inj SUB-Q 40 mg DAILY ERINN Administration Protocol Famotidine 20 mg 10/07/20 10:00 03/16/21 22:50 Famotidine 20 Mg Tab PO 20 mg BID ERINN Administration Hydrophilic Ointment 1 applic 01/03/21 13:00 02/16/21 09:56 Lip Therapy Vaseline TP 1 applic DIRECT PRN Administration Dry Lips Dextrose 1,000 mls @ 30 mls/hr 01/03/21 12:00 02/11/21 18:44 D5w IV 30 mls/hr DIRECT ERINN Administration Metoprolol Tartrate 50 mg 02/02/21 16:01 03/16/21 22:50 Metoprolol Tartrate 25 Mg Tab PO 50 mg BID ERINN Administration Morphine Sulfate 2 mg 01/20/21 13:33 Morphine 2 Mg/1 Ml Inj IV Q4H PRN Pain, Moderate (4-6) Ondansetron HCl 4 mg 02/10/21 11:38 02/10/21 13:18 Ondansetron 4 Mg/2 Ml Inj IV 4 mg Q4H PRN Administration Nausea And Vomiting Simple Syrup 15 ml 10/05/20 11:09 Simple Syrup 15 Ml FEEDTUBE PRN PRN Hypoglycemia Simple Syrup 30 ml 10/05/20 11:09 Simple Syrup 15 Ml FEEDTUBE PRN PRN Hypoglycemia Sodium Bicarbonate 325 mg 10/05/20 11:09 12/16/20 08:19 Sodium Bicarbonate 325 Mg Tab FEEDTUBE 325 mg PRN PRN Administration For Clogged Feeding Tube Nutrition/Malnutrition Assess - Dietary Evaluation Nutrition/Malnutrition Findings: Nutrition Notes Start: 10/04/20 11:13 Freq: Status: Active Protocol: Document 03/12/21 09:21 CW (Rec: 03/12/21 09:32 CW [id number]) Nutrition Notes Initial or Follow up Reassessment Other Pertinent Diagnosis s/p cardiac arrest x 2, anoxic brain injury Current Diet Promote at 65ml/hr Labs/Tests 03/04 labs reviewed Pertinent Medications Reviewed Height 5 ft 8 in Weight 90.1 kg [place] Body Weight (kg) 63.63 BMI 30.2 Weight change and time frame weight change noted. Weight Status Obese Subjective/Other Information F/U for TF tolerance. Records Clerk noted Osmolite 1.5 running at 65ml/hr RN alerted and changed . approximately 95% of bottle infused. Wt increase noted and reweight completed by this process description writer. Weight returning to UBW prior to edema. Will monitor for stable weights and adjust TF as prompted. Percent of energy/protein needs met: 99%/93% (950 ml of Osmolite) Burn Absent Trauma Absent GI Symptoms None Difficulty In Swallowing,Chewing Current % PO Negligible Minimum of two criteria Yes Fluid Accumulation Moderate to Severe (severe) #2 Nutrition Diagnosis Malnutrition As Evidenced by Signs and Symptoms no weight loss has occurred unrelated to post- weight loss or diuretics usage Diagnosis Progress(for reassessment Improved documentation) #1 Nutrition Diagnosis Inadequate oral intake Diagnosis Progress(for reassessment Continues documentation) Is patient on ventilator? No Is Patient Ambulatory and/or Out of Bed No REE-([place]-[facility]. Jeor-confined to bed) 1992.392 Kcal/Kg value to use for calculation 16 Approximate Energy Requirements Using 1442 kcal/Kg Calculation Used for Recommendations Kcal/kg Additional Notes PRO needs: 64-80g (.8-1.0 g/kg AdBW 81kg) Fluid needs: 1 mL/kcal or per MD Nutrition Intervention Change Diet Order: Continue Nutrition Support: Promote at 65 mL/hr Flush 100 ml q4h Kcal 1,560 Protein (gm) 98 Fluid (mL) 1,309 Goal #1 TF tolerance Goal #2 TF to meet at least 75% estimated energy and protein needs. Anticipated Discharge Needs: Promote at 65 ml/hr Flush 100 ml q4h Follow-Up By: 03/17/21 Additional Comments F/U for stable weights and TF tolerance
[2021-03-17] MEDS: ENOXAPARIN 40 MG/0.4 ML INJ SUB-Q SCH (11:03)
[2021-03-17] MEDS: METOPROLOL TARTRATE 25 MG TAB PO SCH ×2 (11:04→22:21)
[2021-03-17] MEDS: FAMOTIDINE 20 MG TAB PO SCH ×2 (11:05→22:22)
[2021-03-18] MEDS: METOPROLOL TARTRATE 25 MG TAB PO SCH ×2 (10:32→21:52)
[2021-03-18] MEDS: ENOXAPARIN 40 MG/0.4 ML INJ SUB-Q SCH (10:33)
[2021-03-18] MEDS: FAMOTIDINE 20 MG TAB PO SCH ×2 (10:33→21:52)
--- NOTE | 2021-03-19 07:02 | Progress Note ---
Assessment and Plan Assessment and plan: --DIC (disseminated intravascular coagulation) vs HELLP syndrome Resolved --Possible Eclampsia/HELLP Syndrome Resolved --s/p Cardiac arrest x2 on admission and on 10/07 ACLS protocol followed by revival Echo showed preserved Ef --Anoxic brain injury, Developed following cardiac arrest, continue supportive care --Shock-resolved now awaiting placement s/p pressor support --ADOLPH-resolved Stable --Sepsis 2/2 UTI s/p cefepime to cover possible pseudomonas as sputum is also growing GN rods till 01/04/21 Previous urine culture grew pansensitive ecoli Blood cultures from 12/27-no growth --Hypernatremia, resolved, cont free water with TF --DVT prophylaxis Patient presented with DIC No anticoagulants Overall prognosis extremely poor. Daily clinical course 10/02/21 11:30: Pt brought to L&D triage for evaluation of possible labor. Pt accompanied by her spouse. Pt spouse poor historian; unable to obtain history- allergies at this time. Pt taken from registration to triage area via WC. Pt unresponsive, actively seizing with snorous respirations. cupola tender, Kassy, called and requesting assistance. 11:35: Multiple staff at bedside. Pt 02 sat 67% on nonrebreather, unable to read BP at this time. Yifan Theodore CRNA, at bedside for intubation and assistance with IV insertion. INT attempt by multiple RNs unsuccessful at this time. 11:42: Pt being bagged by KORIN, 02% 79%. No pulse palpated, compressions started at this time; bharati young called and Dr. Newberry preparing OR for emergent c/s. 11:44: Continued compressions on stretcher while transporting pt to OR 1. Pt being bagged with jaw thrust manuever in place by KORIN Stringer student. 11:45: Arrival to OR 1. Dr. Newberry and Dr. Portillo present for emergent c/s. Code team arrived for continued care. patient revived and c/s done Patient has been bleeding from C/s site followed by supracervical hysterectomy for severe bleeding Patient transfused multiple units of PRBC, Patient in DIC. Transferred to the [facility] 10/03. Patient seen and examined at bedside this morning. Patient is nonresponsive and mechanically ventilated. On pressors. Labs reviewed-has leukocytosis, anemia, thrombocytopenia, ADOLPH and lactic acidosis. Started on IV antibiotics to cover possible sepsis secondary to DIC. Hematology oncology recommendations appreciated-needs additional cryoprecipitate and FFP. Monitor D-dimer, fibrinogen and frequent labs. Nephrology consulted for lactic acidosis and ADOLPH. 10/04. Remains mechanically ventilated. [place] antibiotics. Labs shows improved acidosis - lactic acid 3.5. Hb drop noted. Getting transfused 2 units PRBCs. Platelet count is ~40k. Continue to monitor labs closely. Critical care team on board. 10/05; xray reviewed, concerning for multifocal infilrate, likely underlying P[place], will add ID consult to assist with management of this critically ill patient, start tube feed, closely monitor renal system 10/06: Resumed care, remains on mechanical ventilation. No active bleeding, H&H stable. Continue to monitor CBC and BMP. Continue IV antibiotic for underlying pneumonia. Follow critical care and ID recommendation. 10/07: Remains on mechanical ventilation. No active bleeding, H&H stable. Critical care following, wean off ventilation as tolerated. 10/08: Patient had another cardiac arrest last night. Remains on mechanical ventilation, update family. Continue supportive care -poor prognosis 10/09: Called patient mother and discussed about patient care and management. Answered all question to best of my knowledge and family satisfaction. Patient remains on mechanical ventilation, cardiac arrest x2 so far. Critically sick, poor prognosis 10/10: remains on mechanical ventilation. h/h stable, no active bleeding. monitor CBC/BMP 10/11: WBC trended up with diarrhea, started on vancomycin po. remains on MV, off pressor, tolerating TF 10/12: remains on MV, off pressor, tolerating TF. called family for update but unable to reach, could not leave message as it was full. cont supportive care, wean off vent as tolerated. 10/13/2020; patient is on mechanical ventilation, tolerating tube feeding. Patient has labored breathing. Neuro was consulted and recommend MRI. Patient is on Precedex. Rectal tube in place. 10/14/2020; patient is on mechanical ventilation, Precedex. Patient had fever and blood culture ordered. Patient is on IV vancomycin per ID recommendation. Neuro consulted and recommend MRI. Continue to monitor. Prognosis is guarded. 10/15/2020; patient is on mechanical ventilation, Precedex. Patient had fever and blood culture ordered. Patient is on IV vancomycin per ID recommendation. Neuro consulted and recommend MRI. Continue to monitor. Prognosis is guarded. 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 12/06/20; anoxic brain injury. Awaiting placement. 12/07/2020; anoxic brain injury, awaiting placement. 12/09/2020; anoxic brain injury, awaiting placement. 12/10/2020; patient had episodes of fever overnight. CBC, BMP, blood culture, UA and chest x-ray ordered, will follow and manage accordingly. Urinalysis is suggestive of UTI and I put the patient on ceftriaxone, order urine culture. Chest x-ray is normal. 12/11/2020; patient is on ceftriaxone day 2 for UTI. We will continue to follow urine culture. 12/12/2020. Day #3 of Rocephin for UTI. We will continue for 2 more days while she is here. Present UTI. 12/13/2020. Day #4 of Rocephin for UTI. Patient remains on 50% with tracheost jayne. Remains unresponsive with evidence of anoxic encephalopathy unable to make needs known. 12/14/2020. Day #5 of Rocephin for UTI completed today. Remains encephalopathic unable to make needs known. Remains on 50% unable to decrease oxygen via tracheostomy. Overall prognosis remains extremely poor. 3: Continue to monitor. Stop and monitor antibiotics at this time. Continue to wean oxygen as tolerated. Wean oxygen as tolerated. Case management working on placement. 12/16: Continue supportive care aspiration precautions. Awaiting placement discussion. Monitor fever curve. Prognosis remains poor no evidence of neurological recovery as of today 3: Continue supportive care, check labs and chest xray. Still monitor off antibiotics. Monitor Sodium level 12/18: Patient remains with intermittent low grade fever, reviewed EEG from September again, consistent for Ischemic Hypoxic Encephalopathy, patient with decorticating posturing type presentation. Will discuss with residence hall director to opt imize diet so we can discontinue D5. CXR with no abnormality. Discussed extensively with the nursing staff at bedside CXR IMPRESSION: 1. No acute findings. 12/19: No clinical change 12/20: No clinical change, now off abx, monitor, discussed her medications with our pharmacist I believe that her posture and rigidity is likely from underlying anoxic encephalopathy. Continue to monitor and await placement decision. Continue aggressive suctioning. Plan discussed in detail with the nursing staff 12/21: Continue supportive care. Will give 500 cc bolus of fluid today to replace insensible losses. Tachycardia appears to be improving. Blood pressure precludes adjusting cardiac meds. Still awaiting placement from case management. Plan discussed in detail with the nursing staff 12/22. Continue support supportive care. Tracheostomy and PEG in place. Remains nonresponsive. Awaiting placement. 12/23. Continue support supportive care. Tracheostomy and PEG in place. Remains nonresponsive. Awaiting placement. Remains tachycardic. Decrease dose of lasix. Will try low dose metoprolol. Monitor BP closely 12/24. Continue support supportive care. Tracheostomy and PEG in place. Remains nonresponsive. Awaiting placement. Heart rate slightly better. Continue to monitor BP closely 12/25. Continue support supportive care. Tracheostomy and PEG in place. Remains nonresponsive. Awaiting placement. 12/26. Continue support supportive care. Tracheostomy and PEG in place. Remains nonresponsive. Awaiting placement 12/27. Continue support supportive care. Tracheostomy and PEG in place. Remains nonresponsive. Awaiting placement 12/28. Had fever yesterday. Blood culture drawn. UA - UTI - started on antibiotics. Now tracheal aspirate is growing GN rods. 12/29: Continue IV antibiotics, continue supportive care. Since admission patient has shown minimal or no chance of neurological recovery. Need 24/7 assistance. Currently on trach and PEG, nonverbal. Waiting on SNF placement. Discussed with telephonic case manager today. 12/30: Continue IV antibiotics for UTI, continue supportive care. Pending placement 12/31: continue supportive care. continue supportive care. Pending placement 01/01: continue supportive care. Pending placement. cont Iv abx for UTI till 01/04 01/02: Continue supportive care, pending placement. Sodium level slightly elevated, will start hypotonic fluid. Continue antibiotics till 01/04 01/03; cont hypotonic fluid, increase free water with TF for hypernatremia, follow BMP. cont supportive care. pending placement. cont cefepime. recx blood 01/04: resolved hyponatremia, cont supportive care, pending placement. Last day of supplement today. 01/05: Continue supportive care, pending placement. Monitor H&H and fever curve off antibiotic. 01/06; monitor off abx, suction as needed, Continue supportive care, pending placement. 01/07: Discharge pending on placement, vitals stable. Continue supportive care 01/08: Discharge pending on placement, vitals stable. Continue supportive care. stop lasix, increase metoprolol to 25mg BID for ST. 01/09 patient resting with eyes closed. Opens eyes to tactile stimulus, has a blink reflex, does not follow simple commands, has a T-collar / G-tube Lab results reviewed, low-grade fever, 01/10 Eyes open, does not follow simple commands, no acute events overnight 01/11 no acute events overnight Waiting for placement 01/12 No acute events overnight. Patient awaiting for placement 01/13. No new issues. Awaiting placement 01/14. No new issues. Awaiting placement. 01/15. No new issues. Awaiting placement. 01/16. No new issues. Patient remain stable. Awaiting placement. Check maintenance labs. 01/17. Routine maintenance labs were ordered and are still pending. Await placement. 01/18. Patient with low-grade fever past 24-48 hrs. WBC within normal limits. Check chest x-ray, urinalysis and consider blood cultures. Continue tracheostomy care, secretion control and airway management. Patient currently with PEG and tube feedings at 60 cc an hour. Nutritional support and aspiration precautions. 01/19. Temperature 100.7 overnight. Continue to monitor closely. Continue tracheostomy care, secretion control and airway management. Patient currently with PEG and tube feedings at 60 cc an hour. Nutritional support and aspiration precautions. 01/20. Continue to monitor closely. Continue tracheostomy care, secretion control and airway management. Patient currently with PEG and tube feedings at 60 cc an hour. Nutritional support and aspiration precautions. 01/21. Afebrile overnight. Continue to monitor closely. Continue tracheostomy care, secretion control and airway management. Patient currently with PEG and tube feedings at 60 cc an hour. Nutritional support and aspiration precautions. 01/22. Continue to monitor closely. Continue tracheostomy care, secretion control and airway management. Patient currently with PEG and tube feedings at 60 cc an hour. Nutritional support and aspiration precautions. 01/23. Continue tracheostomy care, secretion control and airway management. Patient currently with PEG and tube feedings at 60 cc an hour. Nutritional support and aspiration precautions. Will get routine labs tomorrow. 01/24. Labs reviewed. No abnormalities. Continue tracheostomy care, secretion control and airway management. Patient currently with PEG and tube feedings at 60 cc an hour. Nutritional support and aspiration precautions. 01/25. Temp 100.6. More sleepy today. Will get chest xray, blood culture, urinalysis, sputum cultures. Will start on empirical abx. 01/26: Vitals noted, slightly tachycardic. Follow culture work-up, continue supportive care. 01/27: Spiking low-grade temp, negative UA, sputum culture and recent blood cultures also negative. Continue to monitor off antibiotics. Continue supportive care. Pending placement. 01/28: cont to spike low grade temp, negative UA, sputum culture and recent blood cultures also negative. Continue to monitor off antibiotics. will order fpr sinus xry. Continue supportive care. Pending placement. 01/29: Continue to follow clinically, intermittently spiking low-grade temp, all recent culture work is negative, negative UA, normal respiratory jaylan 1 tracheal aspirate. Vitals noted and currently stable. Pending placement 01/30: Clinically unchanged, continue to monitor vitals, continue supportive cares. Pending placement. Discussed plan of care with RN at the bedside. 01/31 - TODATE: cont supportive care, pending placement. monitor vitals carefully. Discussed with family at the bedside. 02/06. Patient afebrile today. Continue trach care. Secretions stable today. Culture data negative so far. Awaiting placement. 02/07. Awaiting placement awaiting family member to evaluate papers. Continue trach care secretions stable. Pending placement 02/09: Intermittent fever, ?drug related, will check cxr and also labs. No new complaints. 02/10: Patient's trach dislodged today. Nevertheless respiratory status is intact attempt to reinsert was unsuccessful will monitor discussed with nursing staff to pay close attention to the patient. Considering that this was not a planned decannulation I will start the patient on continuous pulse ox until full evaluation was done by pulmonary. 02/13/2021 Vital signs stable Unresponsive secondary to anoxic encephalopathy Awaiting placement 02/14/2021 Awaiting placement 02/15/2021 Anoxic encephalopathy Awaiting placement 02/16/2021 Anoxic encephalopathy Awaiting placement 02/17/2021 Anoxic encephalopathy awaiting placement 02/18/2021 Anoxic encephalopathy awaiting placement 02/19/2021 Anoxic encephalopathy awaiting placement 02/20/2021 Anoxic encephalopathy awaiting placement 02/21/2021 Anoxic encephalopathy awaiting placement 02/22/2021 Anoxic encephalopathy awaiting placement 02/23/2021 Anoxic encephalopathy awaiting placement 02/24/2021 Anoxic encephalopathy awaiting placement 02/25/2021 Anoxic encephalopathy waiting for placement 02/26 Awaiting placement 02/27. Awaiting placement 02/28. No change in medical condition. Awaiting placement 03/01. No medical changes noted. Awaiting placement 03/01. No medical changes noted. Awaiting placement 03/02. Had temperature more than 100 Fahrenheit. Ordered labs and chest x-ray. Labs reviewed. No pna and no leukocytosis. Procalcitonin negative. Blood cultures negative so far. Continue to monitor for now 03/03 - 03/11. No overnight events. Awaiting placement. 03/12-03/15. Awaiting placement. Continue trach care, secretion control and airway management. Gastrostomy tube care. Continue tube feedings per dietitian. Mobility protocols for pressure ulcer prophylaxis. Check routine labs 03/16/2021; Awaiting placement. Patient is on PEG tube feeding. Saturating well on room air. Patient is mildly tachycardic. Pending placement. 03/17/2021; Awaiting placement. Patient is on PEG tube feeding. Saturating well on room air. Patient is mildly tachycardic. Pending placement. 03/18/2021; awaiting placement. 03/19/2021; awaiting placement History Interval history: 30 year old -[place] female CHE 10/25/20 at 36w5d who presents with seizures in triage on 10/02/20. Pt was not able to provide history but per pt's , she presented to the hospital to return a 24 hour urine specimen for analysis. She then suddenly reported that she did not feel good. She was taken to labor and delivery and shortly after arrival, she began seizing. During this time, a code met was called because the patient became hypoxic. She was then noted to be without a pulse. Chest compressions were started immediately, and the patient was emergently taken to the operating room for delivery of the fetus. Off note, This patient has had care at [facility] with comanagement by [facility] since 11 wks complicated by ADHD, morbid obesity, generalized anxiety disorder, panic attacks, chronic narcotic use, fibromyalgia, GERD, Irritable Bowel Syndrome, Migraines, h/o endometrial ablation and ovarian vein embolization, genital herpes, insomnia, LGA fetus, nausea and vomiting, polyhydramnios, quad screen positive for Down's Syndrome, and previous x 3. She was GBS negative. History Interval history: Patient was seen and evaluated this morning Patient was saturating 91% on room air Patient is does not follow commands Patient has contracted extremities Hospitalist Physical - Physical exam Narrative exam: VITAL SIGNS: Reviewed. GENERAL: On trach and PEG HEAD: No signs of head trauma. EYES: Pupils are equal. MOUTH: OT in place NECK: No adenopathy, no JVD. CHEST: Rales posteriorly CARDIAC: normal S1 and S2, without murmurs, gallops, or rubs. Tachycardia. ABDOMEN: Soft, non tender and non distended. surgical wound in tact, No rebound or guarding, and no masses palpated. Bowel Sounds normal. MUSCULOSKELETAL: No edema Extremities; contracted NEUROLOGIC EXAM: Does not follow command. SKIN: No obvious lesions - Constitutional Vitals: Temp Pulse Resp BP Pulse Ox 99.0 F 92 H 18 98/66 96 03/19/21 06:02 03/19/21 06:02 03/19/21 06:02 03/19/21 06:02 03/19/21 06:02 General appearance: Present: well-nourished, other (Anoxic encephalopathy) HEART Score - HEART Score Age: < 45 Risk factors: 1-2 risk factors - Critical Actions Critical Actions: >7 pts:50-65% risk of adverse cardiac event. Early invasive measures Results - Labs CBC & Chem 7: 03/16/21 04:42 03/16/21 04:42 Labs: Laboratory Last Values WBC 9.4 K/mm3 (4.5-11.0) 03/16/21 04:42 RBC 5.06 M/mm3 (3.65-5.03) H 03/16/21 04:42 Hgb 12.2 gm/dl (10.1-14.3) 03/16/21 04:42 Hgb Comment See scanned result 10/04/20 Unknown Hct 37.6 % (30.3-42.9) 03/16/21 04:42 MCV 74 fl (79-97) L 03/16/21 04:42 MCH 24 pg (28-32) L 03/16/21 04:42 MCHC 33 % (30-34) 03/16/21 04:42 RDW 15.8 % (13.2-15.2) H 03/16/21 04:42 Plt Count 311 K/mm3 (140-440) 03/16/21 04:42 Lymph % (Auto) 33.5 % (13.4-35.0) 03/16/21 04:42 Bledsoe % (Auto) 8.1 % (0.0-7.3) H 03/16/21 04:42 Eos % (Auto) 1.7 % (0.0-4.3) 03/16/21 04:42 Baso % (Auto) 0.5 % (0.0-1.8) 03/16/21 04:42 Lymph # (Auto) 3.1 K/mm3 (1.2-5.4) 03/16/21 04:42 Bledsoe # (Auto) 0.8 K/mm3 (0.0-0.8) 03/16/21 04:42 Eos # (Auto) 0.2 K/mm3 (0.0-0.4) 03/16/21 04:42 Baso # (Auto) 0.0 K/mm3 (0.0-0.1) 03/16/21 04:42 Add Manual Diff Complete 02/09/21 10:59 Total Counted 100 02/09/21 10:59 Seg Neutrophils % 56.2 % (40.0-70.0) 03/16/21 04:42 Seg Neuts % (Manual) 58.0 % (40.0-70.0) 02/09/21 10:59 Band Neutrophils % 2.0 % 10/15/20 05:50 Lymphocytes % (Manual) 29.0 % (13.4-35.0) 02/09/21 10:59 Reactive Lymphs % (Man) 1.0 % 10/02/20 12:18 Monocytes % (Manual) 13.0 % (0.0-7.3) H 02/09/21 10:59 Eosinophils % (Manual) 1.0 % (0.0-4.3) 10/29/20 07:56 Myelocytes % 2.0 % 10/02/20 13:05 Metamyelocytes % 1.0 % 10/14/20 04:00 Nucleated RBC % Not Reportable 02/09/21 10:59 Seg Neutrophils # 5.3 K/mm3 (1.8-7.7) 03/16/21 04:42 Seg Neutrophils # Man 3.7 K/mm3 (1.8-7.7) 02/09/21 10:59 Band Neutrophils # 0.0 K/mm3 02/09/21 10:59 Lymphocytes # (Manual) 1.8 K/mm3 (1.2-5.4) 02/09/21 10:59 Abs React Lymphs (Man) 0.0 K/mm3 02/09/21 10:59 Monocytes # (Manual) 0.8 K/mm3 (0.0-0.8) 02/09/21 10:59 Eosinophils # (Manual) 0.0 K/mm3 (0.0-0.4) 02/09/21 10:59 Basophils # (Manual) 0.0 K/mm3 (0.0-0.1) 02/09/21 10:59 Metamyelocytes # 0.0 K/mm3 02/09/21 10:59 Myelocytes # 0.0 K/mm3 02/09/21 10:59 Promyelocytes # 0.0 K/mm3 02/09/21 10:59 Blast Cells # 0.0 K/mm3 02/09/21 10:59 WBC Morphology Not Reportable 02/09/21 10:59 Hypersegmented Neuts Not Reportable 02/09/21 10:59 Hyposegmented Neuts Not Reportable 02/09/21 10:59 Hypogranular Neuts Not Reportable 02/09/21 10:59 Smudge Cells Not Reportable 02/09/21 10:59 Toxic Granulation Not Reportable 02/09/21 10:59 Toxic Vacuolation Not Reportable 02/09/21 10:59 Dohle Bodies Not Reportable 02/09/21 10:59 Pelger-Huet Anomaly Not Reportable 02/09/21 10:59 Ester Rods Not Reportable 02/09/21 10:59 Platelet Estimate Consistent w auto 02/09/21 10:59 Clumped Platelets Not Reportable 02/09/21 10:59 Plt Clumps, EDTA Not Reportable 02/09/21 10:59 Large Platelets Few 02/09/21 10:59 Giant Platelets Not Reportable 02/09/21 10:59 Platelet Satelliting Not Reportable 02/09/21 10:59 Plt Morphology Comment Not Reportable 02/09/21 10:59 RBC Morphology Not Reportable 02/09/21 10:59 Dimorphic RBCs Not Reportable 02/09/21 10:59 Polychromasia Not Reportable 02/09/21 10:59 Hypochromasia 1+ 02/09/21 10:59 Poikilocytosis Not Reportable 02/09/21 10:59 Anisocytosis Not Reportable 02/09/21 10:59 Microcytosis Not Reportable 02/09/21 10:59 Macrocytosis Not Reportable 02/09/21 10:59 Spherocytes Not Reportable 02/09/21 10:59 Pappenheimer Bodies Not Reportable 02/09/21 10:59 Sickle Cells Not Reportable 02/09/21 10:59 Target Cells Not Reportable 02/09/21 10:59 Tear Drop Cells Not Reportable 02/09/21 10:59 Ovalocytes Not Reportable 02/09/21 10:59 Stomatocytes Few 10/14/20 04:00 Helmet Cells Not Reportable 02/09/21 10:59 [place] Bodies Not Reportable 02/09/21 10:59 [place] Rings Not Reportable 02/09/21 10:59 Antoine Cells Not Reportable 02/09/21 10:59 Bite Cells Not Reportable 02/09/21 10:59 Crenated Cell Not Reportable 02/09/21 10:59 Elliptocytes Not Reportable 02/09/21 10:59 Acanthocytes (Spur) Not Reportable 02/09/21 10:59 Rouleaux Not Reportable 02/09/21 10:59 Hemoglobin C Crystals Not Reportable 02/09/21 10:59 Schistocytes Not Reportable 02/09/21 10:59 Malaria parasites Not Reportable 02/09/21 10:59 Sickle Cell Solubility See scanned result 10/04/20 Unknown Hemoglobin A See scanned result 10/04/20 Unknown Hemoglobin A2 See scanned result 10/04/20 Unknown Hemoglobin A2 Prime See scanned result 10/04/20 Unknown Hemoglobin C See scanned result 10/04/20 Unknown Hemoglobin D See scanned result 10/04/20 Unknown Hemoglobin E See scanned result 10/04/20 Unknown Hgb F Diffential Stain See scanned result 10/04/20 Unknown Hemoglobin F Quant See scanned result 10/04/20 Unknown Hemoglobin G See scanned result 10/04/20 Unknown Hemoglobin S See scanned result 10/04/20 Unknown Hemoglobin [place] See scanned result 10/04/20 Unknown Hemoglobin [place] See scanned result 10/04/20 Unknown Hemoglobin Analilia See scanned result 10/04/20 Unknown Variant Hemoglobin See scanned result 10/04/20 Unknown Abnorm Hgb IEF Confirm See scanned result 10/04/20 Unknown Hemoglobin Interpret See scanned result 10/04/20 Unknown Hemoglobinopathy Note See scanned result 10/04/20 Unknown Sharad Bodies Not Reportable 02/09/21 10:59 Hem Pathologist Commnt No 02/09/21 10:59 PT 13.6 Sec. (12.2-14.9) 10/21/20 13:54 INR 1.06 (0.87-1.13) 10/21/20 13:54 APTT 31.6 Sec. (24.2-36.6) 10/03/20 00:40 Fibrinogen 336 mg/dl (211-480) 10/04/20 10:00 D-Dimer 1974.47 ng/mlDDU (0-234) H 11/11/20 13:50 ABG pH 7.459 pH Units (7.350-7.450) H 10/26/20 10:30 POC ABG pCO2 20.7 mmHg (32.0-48.0) L 10/13/20 07:18 ABG pCO2 32.4 mm Hg 10/26/20 10:30 POC ABG pO2 137.9 mmHg (83-108) H 10/13/20 07:18 ABG pO2 112.2 mm Hg (80.0-90.0) H 10/26/20 10:30 POC ABG HCO3 14.8 10/13/20 07:18 ABG HCO3 22.5 mmol/L (20.0-26.0) 10/26/20 10:30 ABG O2 Saturation 98.2 % (95.0-99.0) 10/26/20 10:30 ABG O2 Content 18.5 (0.0-44) 10/26/20 10:30 POC ABG Base Excess -6.9 10/13/20 07:18 ABG Base Excess -0.6 mmol/L (-2.0-3.0) 10/26/20 10:30 ABG Hemoglobin 13.5 gm/dl (12.0-16.0) 10/26/20 10:30 ABG Oxyhemoglobin 98.3 (94-98) H 10/13/20 07:18 ABG Carboxyhemoglobin 1.3 % (0.0-5.0) 10/26/20 10:30 ABG Methemoglobin 0.5 % (0.0-1.5) 10/26/20 10:30 ABG Sodium 135.9 mmol/L (136.0-145.0) L 10/13/20 07:18 ABG Potassium 3.7 mmol/L (3.40-4.50) 10/13/20 07:18 ABG Chloride 111.0 mmol/L (98-107) H 10/13/20 07:18 ABG Glucose 109 mg/dL (65-95) H 10/13/20 07:18 VBG pH 6.949 (7.320-7.420) L* 10/02/20 Unknown Oxyhemoglobin 96.5 % (95.0-99.0) 10/26/20 10:30 Carboxyhemoglobin 0.3 (0.5-1.5) L 10/13/20 07:18 FiO2 25 % 10/26/20 10:30 Sodium 140 mmol/L (137-145) 03/16/21 04:42 Potassium 3.9 mmol/L (3.6-5.0) 03/16/21 04:42 Chloride 103.1 mmol/L (98-107) 03/16/21 04:42 Carbon Dioxide 25 mmol/L (22-30) 03/16/21 04:42 Anion Gap 16 mmol/L 03/16/21 04:42 BUN 12 mg/dL (7-17) 03/16/21 04:42 Creatinine 0.5 mg/dL (0.6-1.2) L 03/16/21 04:42 Estimated GFR > 60 ml/min 03/16/21 04:42 BUN/Creatinine Ratio 24 % 03/16/21 04:42 Glucose 95 mg/dL (65-100) 03/16/21 04:42 POC Glucose 94 mg/dL (70-105) 03/18/21 23:35 Random Insulin 43.2 uIU/mL (<=19.6) H 11/02/20 19:19 Proinsulin See scanned result 11/02/20 19:19 C-Peptide 6.23 ng/mL (0.80-3.85) H 11/02/20 19:19 Lactic Acid 1.90 mmol/L (0.7-2.0) 10/04/20 22:00 Uric Acid 7.5 mg/dL (3.5-7.6) 10/02/20 13:05 Calcium 9.6 mg/dL (8.4-10.2) 03/16/21 04:42 Ionized Calcium 4.4 mg/dL (4.8-5.6) L 10/07/20 21:00 Phosphorus 4.60 mg/dL (2.5-4.5) H 11/13/20 10:05 Magnesium 2.10 mg/dL (1.7-2.3) 11/13/20 10:05 Total Bilirubin 0.80 mg/dL (0.1-1.2) 03/04/21 04:46 AST 51 units/L (5-40) H 03/04/21 04:46 ALT 53 units/L (7-56) 03/04/21 04:46 Alkaline Phosphatase 117 units/L (35-129) 03/04/21 04:46 Lactate Dehydrogenase 769 units/L (91-180) H 10/02/20 13:05 C-Reactive Protein 0.70 mg/dL (0.00-1.30) 11/11/20 13:50 NT-Pro-B Natriuret Pep 2788 pg/mL (0-450) H 10/04/20 10:00 Total Protein 8.4 g/dL (6.3-8.2) H 03/04/21 04:46 Albumin 4.2 g/dL (3.9-5) 03/04/21 04:46 Albumin/Globulin Ratio 1.0 % 03/04/21 04:46 Procalcitonin < 0.05 ng/mL (<0.15) 03/02/21 02:30 Arterial Blood Glucose 109 mg/dL (65-95) H 10/13/20 07:18 Arterial Blood Ionized Calcium 4.6 mg/dL (4.6-5.3) 10/13/20 07:18 Urine Color Yellow (Yellow) 01/25/21 09:51 Urine Turbidity Cloudy (Clear) 01/25/21 09:51 Urine pH 7.0 (5.0-7.0) 01/25/21 09:51 Ur Specific [place] 1.011 (1.003-1.030) 01/25/21 09:51 Urine Protein <15 mg/dl mg/dL (Negative) 01/25/21 09:51 Urine Glucose (UA) Neg mg/dL (Negative) 01/25/21 09:51 Urine Ketones Neg mg/dL (Negative) 01/25/21 09:51 Urine Blood Neg (Negative) 01/25/21 09:51 Urine Nitrite Neg (Negative) 01/25/21 09:51 Urine Bilirubin Neg (Negative) 01/25/21 09:51 Urine Urobilinogen < 2.0 mg/dL (<2.0) 01/25/21 09:51 Ur Leukocyte Esterase Neg (Negative) 01/25/21 09:51 Urine WBC (Auto) 6.0 /HPF (0.0-6.0) 01/25/21 09:51 Urine RBC (Auto) 3.0 /HPF (0.0-6.0) 01/25/21 09:51 U Epithel Cells (Auto) < 1.0 /HPF (0-13.0) 01/25/21 09:51 Urine Bacteria (Auto) 1+ /HPF (Negative) 01/18/21 08:47 Urine WBC Clumps 3+ /HPF 11/11/20 13:50 Calcium Oxalate Crystal Few 11/11/20 13:50 Urine Mucus Few /HPF 01/25/21 09:51 Urine Yeast (Budding) 2+ /HPF 01/25/21 09:51 Vancomycin Trough 12.6 ug/mL (5.0-20.0) 10/21/20 13:54 Random Vancomycin 10.7 ug/mL (0-40.0) 10/16/20 13:09 Phenytoin 5.7 ug/mL (10.0-20.0) L 10/13/20 07:00 C. difficile Tox (PCR) Positive (Negative) 10/16/20 10:22 Coronavirus (PCR) Negative (Negative) 10/08/20 14:15 Blood Type O POSITIVE 10/02/20 12:50 Antibody Screen Negative 10/02/20 12:50 Crossmatch See Detail 10/02/20 12:50 - Diagnostic Impressions Diagnostic Impressions: Echocardiogram 10/03/20 13:42 Transthoracic Echocardiogram Indication: S/P Cardiac Arrest R/O Cardiomyopathy BP: 133/71 Conclusions *Global left ventricular systolic function is normal. *The estimated ejection fraction is 60-65%. *There is trace of mitral regurgitation. *The right 0heart chambers are both slightly dilated. *There is mild tricuspid regurgitation. *There is mild-moderate pulmonary hypertension. *The right ventricular systolic pressure is calculated at 44 mmHg. *The study quality is technically difficult. Findings Procedure Info: The study quality is technically difficult. The study is technically limited due to patient body habitus. The study was technically limited due to the patient's inability to lay in the left lateral decubitus position. Left Ventricle: The left ventricular chamber size is normal. There is no left ventricular hypertrophy. Global left ventricular systolic function is normal. The estimated ejection fraction is 60-65%. Left Atrium: The left atrial chamber size is normal. Right Ventricle: The right ventricle is slightly dilated. Right Atrium: The right atrium is mildly dilated. Aortic Valve: The aortic valve leaflets are mildly thickened. There is no evidence of aortic regurgitation. There is no evidence of aortic stenosis. Mitral Valve: The mitral valve leaflets are mildly thickened. There is trace of mitral regurgitation. There is no evidence of mitral stenosis. Tricuspid Valve: There is mild tricuspid regurgitation. The right ventricular systolic pressure is calculated at 44 mmHg. There is evidence of mild pulmonary hypertension. Pulmonic Valve: There is trace pulmonic regurgitation. Pericardium: There is no pericardial effusion. Aorta: There is no dilatation of the ascending aorta. There is no dilatation of the aortic root. Venous: The inferior vena cava is dilated. Measurements Chambers 2D Name Value Normal Range IVSd (2D) 1 cm (0.6 - 1.1) LVPWd (2D) 1.01 cm (0.6 - 1.1) LVIDd (2D) 4.58 cm (3.7 - 5.6) LVIDs (2D) 3.17 cm (2 - 3.8) LV FS (2D) 30.93 % - EF Teichholz (2D) 58.66 % - Ao root diameter (2D) 2.94 cm (2 - 3.7) Volumes/Mass Name Value Normal Range LA ESV SP 4CH (A/L) 72.82 ml - LA ESV SP 2CH (A/L) 66.86 ml - LA ESV BP (A/L) 74.49 ml - LA ESV SP 4CH (MOD) 71.03 ml - LA ESV SP 2CH (MOD) 64.3 ml - LV EDV SP 4CH (MOD) 98.82 ml - LV ESV SP 4CH (MOD) 24.8 ml - EF SP 4CH (MOD) 74.9 % - LV EDV SP 2CH (MOD) 86.1 ml - LV ESV SP 2CH (MOD) 36.93 ml - EF SP 2CH (MOD) 57.11 % - LV EDV BP 94.4 ml - LV ESV BP 32.66 ml - BP EF (MOD) 65.4 % - Diastolic/Systolic Function Name Value Normal Range MV E-wave Vmax 1.04 m/sec - MV deceleration time 160.46 msec - MV A-wave Vmax 0.92 m/sec - MV E:A ratio 1.14 ratio - Aortic Valve Name Value Normal Range AV Vmax 2.12 m/sec - AV VTI 22.37 cm - AV peak gradient 17.95 mmHg - AV mean gradient 7.29 mmHg - LVOT diameter 2.01 cm - LVOT Vmax 1.8 m/sec - LVOT VTI 27.17 cm - LVOT peak gradient 12.91 mmHg - LVOT mean gradient 6.83 mmHg - SV LVOT 86.42 ml - ANITA (continuity Vmax) 2.7 cm2 - ANITA (continuity VTI) 3.86 cm2 - Ascending Ao 3.18 cm - Tricuspid Valve Name Value Normal Range TV E-wave Vmax 0.88 m/sec - TR Vmax 3.01 m/sec - TR peak gradient 36.27 mmHg - RAP 8 mmHg - RVSP 44 mmHg - IVC diameter 2.65 cm (1.2 - 2.3) Pulmonic Valve/Qp:Qs Name Value Normal Range PV Vmax 1.22 m/sec - PV peak gradient 5.91 mmHg - RVOT Vmax 0.87 m/sec - RVOT VTI 13.32 cm - RVOT peak gradient 3 mmHg - PV acceleration time 110.37 msec - [place]/IV: Voiding Method Incontinent IV Catheter Type [Right Foot] INT / Saline Lock IV Catheter Type [Left Forearm Peripheral IV ] IV Catheter Type [Left Wrist] INT / Saline Lock IV Catheter Type [Right Hand] INT / Saline Lock IV Catheter Type [Right INT / Saline Lock Antecubital] IV Catheter Type [Right Upper Mid-line arm] IV Catheter Type [Left Triple Lumen Cath Internal Jugular] IV Catheter Type [Left Hand] Peripheral IV IV Catheter Type [Left Peripheral IV Antecubital] Active Medications - Current Medications Current Medications: Generic Name Dose Route Start Last Admin Trade Name Freq PRN Reason Stop Dose Admin Acetaminophen 650 mg 10/05/20 16:34 03/15/21 22:09 Acetaminophen 325 Mg/10.15 Ml Oral Liqd Unit Dose FEEDTUBE 650 mg Q6H PRN Administration Non Cardiac Pain or Temp>100.5 Albuterol 2.5 mg 11/05/20 13:03 11/06/20 13:04 Albuterol 2.5 Mg/3 Ml Nebu IH 2.5 mg Q4HRT PRN Administration Shortness Of Breath Alprazolam 0.25 mg 01/20/21 13:33 03/17/21 05:43 Alprazolam 0.25 Mg Tab PO 0.25 mg Q8H PRN Administration Anxiety Lipase/Protease/Amylase 1 each 10/05/20 11:09 Lipase 10,500/Protease 25,000/Amylase 43,750 (Units) Dr Barakat FEEDTUBE PRN PRN For Clogged Feeding Tube Enoxaparin Sodium 40 mg 10/22/20 10:00 03/18/21 10:33 Enoxaparin 40 Mg/0.4 Ml Inj SUB-Q 40 mg DAILY ERINN Administration Protocol Famotidine 20 mg 10/07/20 10:00 03/18/21 21:52 Famotidine 20 Mg Tab PO 20 mg BID ERINN Administration Hydrophilic Ointment 1 applic 01/03/21 13:00 02/16/21 09:56 Lip Therapy Vaseline TP 1 applic DIRECT PRN Administration Dry Lips Dextrose 1,000 mls @ 30 mls/hr 01/03/21 12:00 02/11/21 18:44 D5w IV 30 mls/hr DIRECT ERINN Administration Metoprolol Tartrate 50 mg 02/02/21 16:01 03/18/21 21:52 Metoprolol Tartrate 25 Mg Tab PO 50 mg BID ERINN Administration Morphine Sulfate 2 mg 01/20/21 13:33 Morphine 2 Mg/1 Ml Inj IV Q4H PRN Pain, Moderate (4-6) Ondansetron HCl 4 mg 02/10/21 11:38 02/10/21 13:18 Ondansetron 4 Mg/2 Ml Inj IV 4 mg Q4H PRN Administration Nausea And Vomiting Simple Syrup 15 ml 10/05/20 11:09 Simple Syrup 15 Ml FEEDTUBE PRN PRN Hypoglycemia Simple Syrup 30 ml 10/05/20 11:09 Simple Syrup 15 Ml FEEDTUBE PRN PRN Hypoglycemia Sodium Bicarbonate 325 mg 10/05/20 11:09 12/16/20 08:19 Sodium Bicarbonate 325 Mg Tab FEEDTUBE 325 mg PRN PRN Administration For Clogged Feeding Tube Nutrition/Malnutrition Assess - Dietary Evaluation Nutrition/Malnutrition Findings: Nutrition Notes Start: 10/04/20 11:13 Freq: Status: Active Protocol: Document 03/17/21 11:56 (Rec: 03/17/21 11:59 [id number]) Nutrition Notes Initial or Follow up Reassessment Other Pertinent Diagnosis s/p cardiac arrest x 2, anoxic brain injury Current Diet Promote at 65ml/hr Labs/Tests Reviewed Pertinent Medications Reviewed Height 5 ft 8 in Weight 91.2 kg [place] Body Weight (kg) 63.63 BMI 30.5 Weight Status Obese Subjective/Other Information FU for TF tolerance. Promote is being tolerated at 65 ml/hr . Percent of energy/protein needs met: 100%/100% Burn Absent Trauma Absent GI Symptoms None Difficulty In Swallowing,Chewing Current % PO Negligible Minimum of two criteria Yes Fluid Accumulation Moderate to Severe (severe) #2 Nutrition Diagnosis Malnutrition As Evidenced by Signs and Symptoms no recent wt loss, no edema noted Diagnosis Progress(for reassessment Resolved documentation) #1 Nutrition Diagnosis Inadequate oral intake Diagnosis Progress(for reassessment Continues documentation) Is patient on ventilator? No Is Patient Ambulatory and/or Out of Bed No [facility] 2006.580 Kcal/Kg value to use for calculation 16 Approximate Energy Requirements Using 1459 kcal/Kg Calculation Used for Recommendations Kcal/kg Additional Notes PRO needs: 64-80g (.8-1.0 g/kg AdBW 81kg) Fluid needs: 1 mL/kcal or per MD Nutrition Intervention Change Diet Order: Continue Nutrition Support: Promote at 65 mL/hr Flush 100 ml q4h Kcal 1,560 Protein (gm) 98 Fluid (mL) 1,309 Goal #1 TF tolerance Goal #2 TF to meet at least 75% estimated energy and protein needs. Anticipated Discharge Needs: Promote at 65 ml/hr Flush 100 ml q4h Follow-Up By: 03/24/21 Additional Comments F/U for stable weights and TF tolerance
[2021-03-19] MEDS: FAMOTIDINE 20 MG TAB PO SCH ×2 (10:41→22:10)
[2021-03-19] MEDS: ALPRAZolam 0.25 MG TAB PO PRN (10:41)
[2021-03-19] MEDS: ENOXAPARIN 40 MG/0.4 ML INJ SUB-Q SCH (10:41)
[2021-03-19] MEDS: METOPROLOL TARTRATE 25 MG TAB PO SCH ×2 (10:42→22:10)
--- NOTE | 2021-03-20 07:48 | Progress Note ---
Assessment and Plan Assessment and plan: --DIC (disseminated intravascular coagulation) vs HELLP syndrome Resolved --Possible Eclampsia/HELLP Syndrome Resolved --s/p Cardiac arrest x2 on admission and on 10/07 ACLS protocol followed by revival Echo showed preserved Ef --Anoxic brain injury, Developed following cardiac arrest, continue supportive care --Shock-resolved now awaiting placement s/p pressor support --ADOLPH-resolved Stable --Sepsis 2/2 UTI s/p cefepime to cover possible pseudomonas as sputum is also growing GN rods till 01/04/21 Previous urine culture grew pansensitive ecoli Blood cultures from 12/27-no growth --Hypernatremia, resolved, cont free water with TF --DVT prophylaxis Patient presented with DIC No anticoagulants Overall prognosis extremely poor. Daily clinical course 10/02/21 11:30: Pt brought to L&D triage for evaluation of possible labor. Pt accompanied by her spouse. Pt spouse poor historian; unable to obtain history- allergies at this time. Pt taken from registration to triage area via WC. Pt unresponsive, actively seizing with snorous respirations. paediatrician, Kassy, called and requesting assistance. 11:35: Multiple staff at bedside. Pt 02 sat 67% on nonrebreather, unable to read BP at this time. Yifan Theodore CRNA, at bedside for intubation and assistance with IV insertion. INT attempt by multiple RNs unsuccessful at this time. 11:42: Pt being bagged by KORIN, 02% 79%. No pulse palpated, compressions started at this time; bharati young called and Dr. Newberry preparing OR for emergent c/s. 11:44: Continued compressions on stretcher while transporting pt to OR 1. Pt being bagged with jaw thrust manuever in place by KORIN Stringer student. 11:45: Arrival to OR 1. Dr. Newberry and Dr. Portillo present for emergent c/s. Code team arrived for continued care. patient revived and c/s done Patient has been bleeding from C/s site followed by supracervical hysterectomy for severe bleeding Patient transfused multiple units of PRBC, Patient in DIC. Transferred to the [facility] 10/03. Patient seen and examined at bedside this morning. Patient is nonresponsive and mechanically ventilated. On pressors. Labs reviewed-has leukocytosis, anemia, thrombocytopenia, ADOLPH and lactic acidosis. Started on IV antibiotics to cover possible sepsis secondary to DIC. Hematology oncology recommendations appreciated-needs additional cryoprecipitate and FFP. Monitor D-dimer, fibrinogen and frequent labs. Nephrology consulted for lactic acidosis and ADOLPH. 10/04. Remains mechanically ventilated. Jasper antibiotics. Labs shows improved acidosis - lactic acid 3.5. Hb drop noted. Getting transfused 2 units PRBCs. Platelet count is ~40k. Continue to monitor labs closely. Critical care team on board. 10/05; xray reviewed, concerning for multifocal infilrate, likely underlying Pne umonia, will add ID consult to assist with management of this critically ill patient, start tube feed, closely monitor renal system 10/06: Resumed care, remains on mechanical ventilation. No active bleeding, H&H stable. Continue to monitor CBC and BMP. Continue IV antibiotic for underlying pneumonia. Follow critical care and ID recommendation. 10/07: Remains on mechanical ventilation. No active bleeding, H&H stable. Critical care following, wean off ventilation as tolerated. 10/08: Patient had another cardiac arrest last night. Remains on mechanical ventilation, update family. Continue supportive care -poor prognosis 10/09: Called patient mother and discussed about patient care and management. Answered all question to best of my knowledge and family satisfaction. Patient remains on mechanical ventilation, cardiac arrest x2 so far. Critically sick, poor prognosis 10/10: remains on mechanical ventilation. h/h stable, no active bleeding. monitor CBC/BMP 10/11: WBC trended up with diarrhea, started on vancomycin po. remains on MV, off pressor, tolerating TF 10/12: remains on MV, off pressor, tolerating TF. called family for update but unable to reach, could not leave message as it was full. cont supportive care, wean off vent as tolerated. 10/13/2020; patient is on mechanical ventilation, tolerating tube feeding. Patient has labored breathing. Neuro was consulted and recommend MRI. Patient is on Precedex. Rectal tube in place. 10/14/2020; patient is on mechanical ventilation, Precedex. Patient had fever and blood culture ordered. Patient is on IV vancomycin per ID recommendation. Neuro consulted and recommend MRI. Continue to monitor. Prognosis is guarded. 10/15/2020; patient is on mechanical ventilation, Precedex. Patient had fever and blood culture ordered. Patient is on IV vancomycin per ID recommendation. Neuro consulted and recommend MRI. Continue to monitor. Prognosis is guarded. 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 12/06/20; anoxic brain injury. Awaiting placement. 12/07/2020; anoxic brain injury, awaiting placement. 12/09/2020; anoxic brain injury, awaiting placement. 12/10/2020; patient had episodes of fever overnight. CBC, BMP, blood culture, UA and chest x-ray ordered, will follow and manage accordingly. Urinalysis is suggestive of UTI and I put the patient on ceftriaxone, order urine culture. Chest x-ray is normal. 12/11/2020; patient is on ceftriaxone day 2 for UTI. We will continue to follow urine culture. 12/12/2020. Day #3 of Rocephin for UTI. We will continue for 2 more days while she is here. Present UTI. 12/13/2020. Day #4 of Rocephin for UTI. Patient remains on 50% with tracheost jayne. Remains unresponsive with evidence of anoxic encephalopathy unable to make needs known. 12/14/2020. Day #5 of Rocephin for UTI completed today. Remains encephalopathic unable to make needs known. Remains on 50% unable to decrease oxygen via tracheostomy. Overall prognosis remains extremely poor. 3: Continue to monitor. Stop and monitor antibiotics at this time. Continue to wean oxygen as tolerated. Wean oxygen as tolerated. Case management working on placement. 12/16: Continue supportive care aspiration precautions. Awaiting placement discussion. Monitor fever curve. Prognosis remains poor no evidence of neurological recovery as of today 3: Continue supportive care, check labs and chest xray. Still monitor off antibiotics. Monitor Sodium level 12/18: Patient remains with intermittent low grade fever, reviewed EEG from September again, consistent for Ischemic Hypoxic Encephalopathy, patient with decorticating posturing type presentation. Will discuss with licensed marine engineer to opt imize diet so we can discontinue D5. CXR with no abnormality. Discussed extensively with the nursing staff at bedside CXR IMPRESSION: 1. No acute findings. 12/19: No clinical change 12/20: No clinical change, now off abx, monitor, discussed her medications with our pharmacist I believe that her posture and rigidity is likely from underlying anoxic encephalopathy. Continue to monitor and await placement decision. Continue aggressive suctioning. Plan discussed in detail with the nursing staff 12/21: Continue supportive care. Will give 500 cc bolus of fluid today to replace insensible losses. Tachycardia appears to be improving. Blood pressure precludes adjusting cardiac meds. Still awaiting placement from case management. Plan discussed in detail with the nursing staff 12/22. Continue support supportive care. Tracheostomy and PEG in place. Remains nonresponsive. Awaiting placement. 12/23. Continue support supportive care. Tracheostomy and PEG in place. Remains nonresponsive. Awaiting placement. Remains tachycardic. Decrease dose of lasix. Will try low dose metoprolol. Monitor BP closely 12/24. Continue support supportive care. Tracheostomy and PEG in place. Remains nonresponsive. Awaiting placement. Heart rate slightly better. Continue to monitor BP closely 12/25. Continue support supportive care. Tracheostomy and PEG in place. Remains nonresponsive. Awaiting placement. 12/26. Continue support supportive care. Tracheostomy and PEG in place. Remains nonresponsive. Awaiting placement 12/27. Continue support supportive care. Tracheostomy and PEG in place. Remains nonresponsive. Awaiting placement 12/28. Had fever yesterday. Blood culture drawn. UA - UTI - started on antibiotics. Now tracheal aspirate is growing GN rods. 12/29: Continue IV antibiotics, continue supportive care. Since admission patient has shown minimal or no chance of neurological recovery. Need 24/7 assistance. Currently on trach and PEG, nonverbal. Waiting on SNF placement. Discussed with spring encaser today. 12/30: Continue IV antibiotics for UTI, continue supportive care. Pending placement 12/31: continue supportive care. continue supportive care. Pending placement 01/01: continue supportive care. Pending placement. cont Iv abx for UTI till 01/04 01/02: Continue supportive care, pending placement. Sodium level slightly elevated, will start hypotonic fluid. Continue antibiotics till 01/04 01/03; cont hypotonic fluid, increase free water with TF for hypernatremia, follow BMP. cont supportive care. pending placement. cont cefepime. recx blood 01/04: resolved hyponatremia, cont supportive care, pending placement. Last day of supplement today. 01/05: Continue supportive care, pending placement. Monitor H&H and fever curve off antibiotic. 01/06; monitor off abx, suction as needed, Continue supportive care, pending placement. 01/07: Discharge pending on placement, vitals stable. Continue supportive care 01/08: Discharge pending on placement, vitals stable. Continue supportive care. stop lasix, increase metoprolol to 25mg BID for ST. 01/09 patient resting with eyes closed. Opens eyes to tactile stimulus, has a blink reflex, does not follow simple commands, has a T-collar / G-tube Lab results reviewed, low-grade fever, 01/10 Eyes open, does not follow simple commands, no acute events overnight 01/11 no acute events overnight Waiting for placement 01/12 No acute events overnight. Patient awaiting for placement 01/13. No new issues. Awaiting placement 01/14. No new issues. Awaiting placement. 01/15. No new issues. Awaiting placement. 01/16. No new issues. Patient remain stable. Awaiting placement. Check maintenance labs. 01/17. Routine maintenance labs were ordered and are still pending. Await placement. 01/18. Patient with low-grade fever past 24-48 hrs. WBC within normal limits. Check chest x-ray, urinalysis and consider blood cultures. Continue tracheostomy care, secretion control and airway management. Patient currently with PEG and tube feedings at 60 cc an hour. Nutritional support and aspiration precautions. 01/19. Temperature 100.7 overnight. Continue to monitor closely. Continue tracheostomy care, secretion control and airway management. Patient currently with PEG and tube feedings at 60 cc an hour. Nutritional support and aspiration precautions. 01/20. Continue to monitor closely. Continue tracheostomy care, secretion control and airway management. Patient currently with PEG and tube feedings at 60 cc an hour. Nutritional support and aspiration precautions. 01/21. Afebrile overnight. Continue to monitor closely. Continue tracheostomy care, secretion control and airway management. Patient currently with PEG and tube feedings at 60 cc an hour. Nutritional support and aspiration precautions. 01/22. Continue to monitor closely. Continue tracheostomy care, secretion control and airway management. Patient currently with PEG and tube feedings at 60 cc an hour. Nutritional support and aspiration precautions. 01/23. Continue tracheostomy care, secretion control and airway management. Patient currently with PEG and tube feedings at 60 cc an hour. Nutritional support and aspiration precautions. Will get routine labs tomorrow. 01/24. Labs reviewed. No abnormalities. Continue tracheostomy care, secretion control and airway management. Patient currently with PEG and tube feedings at 60 cc an hour. Nutritional support and aspiration precautions. 01/25. Temp 100.6. More sleepy today. Will get chest xray, blood culture, urinalysis, sputum cultures. Will start on empirical abx. 01/26: Vitals noted, slightly tachycardic. Follow culture work-up, continue supportive care. 01/27: Spiking low-grade temp, negative UA, sputum culture and recent blood cultures also negative. Continue to monitor off antibiotics. Continue supportive care. Pending placement. 01/28: cont to spike low grade temp, negative UA, sputum culture and recent blood cultures also negative. Continue to monitor off antibiotics. will order fpr sinus xry. Continue supportive care. Pending placement. 01/29: Continue to follow clinically, intermittently spiking low-grade temp, all recent culture work is negative, negative UA, normal respiratory jaylan 1 tracheal aspirate. Vitals noted and currently stable. Pending placement 01/30: Clinically unchanged, continue to monitor vitals, continue supportive cares. Pending placement. Discussed plan of care with RN at the bedside. 01/31 - TODATE: cont supportive care, pending placement. monitor vitals carefully. Discussed with family at the bedside. 02/06. Patient afebrile today. Continue trach care. Secretions stable today. Culture data negative so far. Awaiting placement. 02/07. Awaiting placement awaiting family member to evaluate papers. Continue trach care secretions stable. Pending placement 02/09: Intermittent fever, ?drug related, will check cxr and also labs. No new complaints. 02/10: Patient's trach dislodged today. Nevertheless respiratory status is intact attempt to reinsert was unsuccessful will monitor discussed with nursing staff to pay close attention to the patient. Considering that this was not a planned decannulation I will start the patient on continuous pulse ox until full evaluation was done by pulmonary. 02/13/2021 Vital signs stable Unresponsive secondary to anoxic encephalopathy Awaiting placement 02/14/2021 Awaiting placement 02/15/2021 Anoxic encephalopathy Awaiting placement 02/16/2021 Anoxic encephalopathy Awaiting placement 02/17/2021 Anoxic encephalopathy awaiting placement 02/18/2021 Anoxic encephalopathy awaiting placement 02/19/2021 Anoxic encephalopathy awaiting placement 02/20/2021 Anoxic encephalopathy awaiting placement 02/21/2021 Anoxic encephalopathy awaiting placement 02/22/2021 Anoxic encephalopathy awaiting placement 02/23/2021 Anoxic encephalopathy awaiting placement 02/24/2021 Anoxic encephalopathy awaiting placement 02/25/2021 Anoxic encephalopathy waiting for placement 02/26 Awaiting placement 02/27. Awaiting placement 02/28. No change in medical condition. Awaiting placement 03/01. No medical changes noted. Awaiting placement 03/01. No medical changes noted. Awaiting placement 03/02. Had temperature more than 100 Fahrenheit. Ordered labs and chest x-ray. Labs reviewed. No pna and no leukocytosis. Procalcitonin negative. Blood cultures negative so far. Continue to monitor for now 03/03 - 03/11. No overnight events. Awaiting placement. 03/12-03/15. Awaiting placement. Continue trach care, secretion control and airway management. Gastrostomy tube care. Continue tube feedings per dietitian. Mobility protocols for pressure ulcer prophylaxis. Check routine labs 03/16/2021; Awaiting placement. Patient is on PEG tube feeding. Saturating well on room air. Patient is mildly tachycardic. Pending placement. 03/17/2021; Awaiting placement. Patient is on PEG tube feeding. Saturating well on room air. Patient is mildly tachycardic. Pending placement. 03/18/2021; awaiting placement. 03/19/2021; awaiting placement. 03/20/2021; awaiting placement. History Interval history: 30 year old -[place] female CHE 10/25/20 at 36w5d who presents with seizures in triage on 10/02/20. Pt was not able to provide history but per pt's , she presented to the hospital to return a 24 hour urine specimen for analysis. She then suddenly reported that she did not feel good. She was ta azael to labor and delivery and shortly after arrival, she began seizing. During this time, a code met was called because the patient became hypoxic. She was then noted to be without a pulse. Chest compressions were started immediately, and the patient was emergently taken to the operating room for delivery of the fetus. Off note, This patient has had care at [facility] with comanagement by [facility] since 11 wks complicated by ADHD, morbid obesity, generalized anxiety disorder, panic attacks, chronic narcotic use, fibromyalgia, GERD, Irritable Bowel Syndrome, Migraines, h/o endometrial ablation and ovarian vein embolization, genital herpes, insomnia, LGA fetus, nausea and vomiting, polyhydramnios, quad screen positive for Down's Syndrome, and previous x 3. She was GBS negative. History Interval history: Patient was seen and evaluated this morning Patient is does not follow commands Patient has contracted extremities Hospitalist Physical - Physical exam Narrative exam: VITAL SIGNS: Reviewed. GENERAL: On trach and PEG HEAD: No signs of head trauma. EYES: Pupils are equal. MOUTH: OT in place NECK: No adenopathy, no JVD. CHEST: Rales posteriorly CARDIAC: normal S1 and S2, without murmurs, gallops, or rubs. Tachycardia. ABDOMEN: Soft, non tender and non distended. surgical wound in tact, No rebound or guarding, and no masses palpated. Bowel Sounds normal. MUSCULOSKELETAL: No edema Extremities; contracted NEUROLOGIC EXAM: Does not follow command. SKIN: No obvious lesions - Constitutional Vitals: Temp Pulse Resp BP Pulse Ox 97.7 F 122 H 26 H 112/31 98 03/19/21 22:23 03/19/21 22:23 03/19/21 22:23 03/19/21 22:23 03/19/21 22:23 General appearance: Present: well-nourished, other (Anoxic encephalopathy) HEART Score - HEART Score Age: < 45 Risk factors: 1-2 risk factors - Critical Actions Critical Actions: >7 pts:50-65% risk of adverse cardiac event. Early invasive measures Results - Labs CBC & Chem 7: 03/16/21 04:42 03/16/21 04:42 Labs: Laboratory Last Values WBC 9.4 K/mm3 (4.5-11.0) 03/16/21 04:42 RBC 5.06 M/mm3 (3.65-5.03) H 03/16/21 04:42 Hgb 12.2 gm/dl (10.1-14.3) 03/16/21 04:42 Hgb Comment See scanned result 10/04/20 Unknown Hct 37.6 % (30.3-42.9) 03/16/21 04:42 MCV 74 fl (79-97) L 03/16/21 04:42 MCH 24 pg (28-32) L 03/16/21 04:42 MCHC 33 % (30-34) 03/16/21 04:42 RDW 15.8 % (13.2-15.2) H 03/16/21 04:42 Plt Count 311 K/mm3 (140-440) 03/16/21 04:42 Lymph % (Auto) 33.5 % (13.4-35.0) 03/16/21 04:42 [place] % (Auto) 8.1 % (0.0-7.3) H 03/16/21 04:42 Eos % (Auto) 1.7 % (0.0-4.3) 03/16/21 04:42 Baso % (Auto) 0.5 % (0.0-1.8) 03/16/21 04:42 Lymph # (Auto) 3.1 K/mm3 (1.2-5.4) 03/16/21 04:42 [place] # (Auto) 0.8 K/mm3 (0.0-0.8) 03/16/21 04:42 Eos # (Auto) 0.2 K/mm3 (0.0-0.4) 03/16/21 04:42 Baso # (Auto) 0.0 K/mm3 (0.0-0.1) 03/16/21 04:42 Add Manual Diff Complete 02/09/21 10:59 Total Counted 100 02/09/21 10:59 Seg Neutrophils % 56.2 % (40.0-70.0) 03/16/21 04:42 Seg Neuts % (Manual) 58.0 % (40.0-70.0) 02/09/21 10:59 Band Neutrophils % 2.0 % 10/15/20 05:50 Lymphocytes % (Manual) 29.0 % (13.4-35.0) 02/09/21 10:59 Reactive Lymphs % (Man) 1.0 % 10/02/20 12:18 Monocytes % (Manual) 13.0 % (0.0-7.3) H 02/09/21 10:59 Eosinophils % (Manual) 1.0 % (0.0-4.3) 10/29/20 07:56 Myelocytes % 2.0 % 10/02/20 13:05 Metamyelocytes % 1.0 % 10/14/20 04:00 Nucleated RBC % Not Reportable 02/09/21 10:59 Seg Neutrophils # 5.3 K/mm3 (1.8-7.7) 03/16/21 04:42 Seg Neutrophils # Man 3.7 K/mm3 (1.8-7.7) 02/09/21 10:59 Band Neutrophils # 0.0 K/mm3 02/09/21 10:59 Lymphocytes # (Manual) 1.8 K/mm3 (1.2-5.4) 02/09/21 10:59 Abs React Lymphs (Man) 0.0 K/mm3 02/09/21 10:59 Monocytes # (Manual) 0.8 K/mm3 (0.0-0.8) 02/09/21 10:59 Eosinophils # (Manual) 0.0 K/mm3 (0.0-0.4) 02/09/21 10:59 Basophils # (Manual) 0.0 K/mm3 (0.0-0.1) 02/09/21 10:59 Metamyelocytes # 0.0 K/mm3 02/09/21 10:59 Myelocytes # 0.0 K/mm3 02/09/21 10:59 Promyelocytes # 0.0 K/mm3 02/09/21 10:59 Blast Cells # 0.0 K/mm3 02/09/21 10:59 WBC Morphology Not Reportable 02/09/21 10:59 Hypersegmented Neuts Not Reportable 02/09/21 10:59 Hyposegmented Neuts Not Reportable 02/09/21 10:59 Hypogranular Neuts Not Reportable 02/09/21 10:59 Smudge Cells Not Reportable 02/09/21 10:59 Toxic Granulation Not Reportable 02/09/21 10:59 Toxic Vacuolation Not Reportable 02/09/21 10:59 Dohle Bodies Not Reportable 02/09/21 10:59 Pelger-Huet Anomaly Not Reportable 02/09/21 10:59 Ester Rods Not Reportable 02/09/21 10:59 Platelet Estimate Consistent w auto 02/09/21 10:59 Clumped Platelets Not Reportable 02/09/21 10:59 Plt Clumps, EDTA Not Reportable 02/09/21 10:59 Large Platelets Few 02/09/21 10:59 Giant Platelets Not Reportable 02/09/21 10:59 Platelet Satelliting Not Reportable 02/09/21 10:59 Plt Morphology Comment Not Reportable 02/09/21 10:59 RBC Morphology Not Reportable 02/09/21 10:59 Dimorphic RBCs Not Reportable 02/09/21 10:59 Polychromasia Not Reportable 02/09/21 10:59 Hypochromasia 1+ 02/09/21 10:59 Poikilocytosis Not Reportable 02/09/21 10:59 Anisocytosis Not Reportable 02/09/21 10:59 Microcytosis Not Reportable 02/09/21 10:59 Macrocytosis Not Reportable 02/09/21 10:59 Spherocytes Not Reportable 02/09/21 10:59 Pappenheimer Bodies Not Reportable 02/09/21 10:59 Sickle Cells Not Reportable 02/09/21 10:59 Target Cells Not Reportable 02/09/21 10:59 Tear Drop Cells Not Reportable 02/09/21 10:59 Ovalocytes Not Reportable 02/09/21 10:59 Stomatocytes Few 10/14/20 04:00 Helmet Cells Not Reportable 02/09/21 10:59 Burk-Mulhall Bodies Not Reportable 02/09/21 10:59 [place] Rings Not Reportable 02/09/21 10:59 [place] Cells Not Reportable 02/09/21 10:59 Bite Cells Not Reportable 02/09/21 10:59 Crenated Cell Not Reportable 02/09/21 10:59 Elliptocytes Not Reportable 02/09/21 10:59 Acanthocytes (Spur) Not Reportable 02/09/21 10:59 Rouleaux Not Reportable 02/09/21 10:59 Hemoglobin C Crystals Not Reportable 02/09/21 10:59 Schistocytes Not Reportable 02/09/21 10:59 Malaria parasites Not Reportable 02/09/21 10:59 Sickle Cell Solubility See scanned result 10/04/20 Unknown Hemoglobin A See scanned result 10/04/20 Unknown Hemoglobin A2 See scanned result 10/04/20 Unknown Hemoglobin A2 Prime See scanned result 10/04/20 Unknown Hemoglobin C See scanned result 10/04/20 Unknown Hemoglobin D See scanned result 10/04/20 Unknown Hemoglobin E See scanned result 10/04/20 Unknown Hgb F Diffential Stain See scanned result 10/04/20 Unknown Hemoglobin F Quant See scanned result 10/04/20 Unknown Hemoglobin G See scanned result 10/04/20 Unknown Hemoglobin S See scanned result 10/04/20 Unknown Hemoglobin O-[place] See scanned result 10/04/20 Unknown Hemoglobin [place] See scanned result 10/04/20 Unknown Hemoglobin Analilia See scanned result 10/04/20 Unknown Variant Hemoglobin See scanned result 10/04/20 Unknown Abnorm Hgb IEF Confirm See scanned result 10/04/20 Unknown Hemoglobin Interpret See scanned result 10/04/20 Unknown Hemoglobinopathy Note See scanned result 10/04/20 Unknown Sharad Bodies Not Reportable 02/09/21 10:59 Hem Pathologist Commnt No 02/09/21 10:59 PT 13.6 Sec. (12.2-14.9) 10/21/20 13:54 INR 1.06 (0.87-1.13) 10/21/20 13:54 APTT 31.6 Sec. (24.2-36.6) 10/03/20 00:40 Fibrinogen 336 mg/dl (211-480) 10/04/20 10:00 D-Dimer 1974.47 ng/mlDDU (0-234) H 11/11/20 13:50 ABG pH 7.459 pH Units (7.350-7.450) H 10/26/20 10:30 POC ABG pCO2 20.7 mmHg (32.0-48.0) L 10/13/20 07:18 ABG pCO2 32.4 mm Hg 10/26/20 10:30 POC ABG pO2 137.9 mmHg (83-108) H 10/13/20 07:18 ABG pO2 112.2 mm Hg (80.0-90.0) H 10/26/20 10:30 POC ABG HCO3 14.8 10/13/20 07:18 ABG HCO3 22.5 mmol/L (20.0-26.0) 10/26/20 10:30 ABG O2 Saturation 98.2 % (95.0-99.0) 10/26/20 10:30 ABG O2 Content 18.5 (0.0-44) 10/26/20 10:30 POC ABG Base Excess -6.9 10/13/20 07:18 ABG Base Excess -0.6 mmol/L (-2.0-3.0) 10/26/20 10:30 ABG Hemoglobin 13.5 gm/dl (12.0-16.0) 10/26/20 10:30 ABG Oxyhemoglobin 98.3 (94-98) H 10/13/20 07:18 ABG Carboxyhemoglobin 1.3 % (0.0-5.0) 10/26/20 10:30 ABG Methemoglobin 0.5 % (0.0-1.5) 10/26/20 10:30 ABG Sodium 135.9 mmol/L (136.0-145.0) L 10/13/20 07:18 ABG Potassium 3.7 mmol/L (3.40-4.50) 10/13/20 07:18 ABG Chloride 111.0 mmol/L (98-107) H 10/13/20 07:18 ABG Glucose 109 mg/dL (65-95) H 10/13/20 07:18 VBG pH 6.949 (7.320-7.420) L* 10/02/20 Unknown Oxyhemoglobin 96.5 % (95.0-99.0) 10/26/20 10:30 Carboxyhemoglobin 0.3 (0.5-1.5) L 10/13/20 07:18 FiO2 25 % 10/26/20 10:30 Sodium 140 mmol/L (137-145) 03/16/21 04:42 Potassium 3.9 mmol/L (3.6-5.0) 03/16/21 04:42 Chloride 103.1 mmol/L (98-107) 03/16/21 04:42 Carbon Dioxide 25 mmol/L (22-30) 03/16/21 04:42 Anion Gap 16 mmol/L 03/16/21 04:42 BUN 12 mg/dL (7-17) 03/16/21 04:42 Creatinine 0.5 mg/dL (0.6-1.2) L 03/16/21 04:42 Estimated GFR > 60 ml/min 03/16/21 04:42 BUN/Creatinine Ratio 24 % 03/16/21 04:42 Glucose 95 mg/dL (65-100) 03/16/21 04:42 POC Glucose 92 mg/dL (70-105) 03/20/21 05:38 Random Insulin 43.2 uIU/mL (<=19.6) H 11/02/20 19:19 Proinsulin See scanned result 11/02/20 19:19 C-Peptide 6.23 ng/mL (0.80-3.85) H 11/02/20 19:19 Lactic Acid 1.90 mmol/L (0.7-2.0) 10/04/20 22:00 Uric Acid 7.5 mg/dL (3.5-7.6) 10/02/20 13:05 Calcium 9.6 mg/dL (8.4-10.2) 03/16/21 04:42 Ionized Calcium 4.4 mg/dL (4.8-5.6) L 10/07/20 21:00 Phosphorus 4.60 mg/dL (2.5-4.5) H 11/13/20 10:05 Magnesium 2.10 mg/dL (1.7-2.3) 11/13/20 10:05 Total Bilirubin 0.80 mg/dL (0.1-1.2) 03/04/21 04:46 AST 51 units/L (5-40) H 03/04/21 04:46 ALT 53 units/L (7-56) 03/04/21 04:46 Alkaline Phosphatase 117 units/L (35-129) 03/04/21 04:46 Lactate Dehydrogenase 769 units/L (91-180) H 10/02/20 13:05 C-Reactive Protein 0.70 mg/dL (0.00-1.30) 11/11/20 13:50 NT-Pro-B Natriuret Pep 2788 pg/mL (0-450) H 10/04/20 10:00 Total Protein 8.4 g/dL (6.3-8.2) H 03/04/21 04:46 Albumin 4.2 g/dL (3.9-5) 03/04/21 04:46 Albumin/Globulin Ratio 1.0 % 03/04/21 04:46 Procalcitonin < 0.05 ng/mL (<0.15) 03/02/21 02:30 Arterial Blood Glucose 109 mg/dL (65-95) H 10/13/20 07:18 Arterial Blood Ionized Calcium 4.6 mg/dL (4.6-5.3) 10/13/20 07:18 Urine Color Yellow (Yellow) 01/25/21 09:51 Urine Turbidity Cloudy (Clear) 01/25/21 09:51 Urine pH 7.0 (5.0-7.0) 01/25/21 09:51 Ur Specific [place] 1.011 (1.003-1.030) 01/25/21 09:51 Urine Protein <15 mg/dl mg/dL (Negative) 01/25/21 09:51 Urine Glucose (UA) Neg mg/dL (Negative) 01/25/21 09:51 Urine Ketones Neg mg/dL (Negative) 01/25/21 09:51 Urine Blood Neg (Negative) 01/25/21 09:51 Urine Nitrite Neg (Negative) 01/25/21 09:51 Urine Bilirubin Neg (Negative) 01/25/21 09:51 Urine Urobilinogen < 2.0 mg/dL (<2.0) 01/25/21 09:51 Ur Leukocyte Esterase Neg (Negative) 01/25/21 09:51 Urine WBC (Auto) 6.0 /HPF (0.0-6.0) 01/25/21 09:51 Urine RBC (Auto) 3.0 /HPF (0.0-6.0) 01/25/21 09:51 U Epithel Cells (Auto) < 1.0 /HPF (0-13.0) 01/25/21 09:51 Urine Bacteria (Auto) 1+ /HPF (Negative) 01/18/21 08:47 Urine WBC Clumps 3+ /HPF 11/11/20 13:50 Calcium Oxalate Crystal Few 11/11/20 13:50 Urine Mucus Few /HPF 01/25/21 09:51 Urine Yeast (Budding) 2+ /HPF 01/25/21 09:51 Vancomycin Trough 12.6 ug/mL (5.0-20.0) 10/21/20 13:54 Random Vancomycin 10.7 ug/mL (0-40.0) 10/16/20 13:09 Phenytoin 5.7 ug/mL (10.0-20.0) L 10/13/20 07:00 C. difficile Tox (PCR) Positive (Negative) 10/16/20 10:22 Coronavirus (PCR) Negative (Negative) 10/08/20 14:15 Blood Type O POSITIVE 10/02/20 12:50 Antibody Screen Negative 10/02/20 12:50 Crossmatch See Detail 10/02/20 12:50 - Diagnostic Impressions Diagnostic Impressions: Echocardiogram 10/03/20 13:42 Transthoracic Echocardiogram Indication: S/P Cardiac Arrest R/O Cardiomyopathy BP: 133/71 Conclusions *Global left ventricular systolic function is normal. *The estimated ejection fraction is 60-65%. *There is trace of mitral regurgitation. *The right 0heart chambers are both slightly dilated. *There is mild tricuspid regurgitation. *There is mild-moderate pulmonary hypertension. *The right ventricular systolic pressure is calculated at 44 mmHg. *The study quality is technically difficult. Findings Procedure Info: The study quality is technically difficult. The study is technically limited due to patient body habitus. The study was technically limited due to the patient's inability to lay in the left lateral decubitus position. Left Ventricle: The left ventricular chamber size is normal. There is no left ventricular hypertrophy. Global left ventricular systolic function is normal. The estimated ejection fraction is 60-65%. Left Atrium: The left atrial chamber size is normal. Right Ventricle: The right ventricle is slightly dilated. Right Atrium: The right atrium is mildly dilated. Aortic Valve: The aortic valve leaflets are mildly thickened. There is no evidence of aortic regurgitation. There is no evidence of aortic stenosis. Mitral Valve: The mitral valve leaflets are mildly thickened. There is trace of mitral regurgitation. There is no evidence of mitral stenosis. Tricuspid Valve: There is mild tricuspid regurgitation. The right ventricular systolic pressure is calculated at 44 mmHg. There is evidence of mild pulmonary hypertension. Pulmonic Valve: There is trace pulmonic regurgitation. Pericardium: There is no pericardial effusion. Aorta: There is no dilatation of the ascending aorta. There is no dilatation of the aortic root. Venous: The inferior vena cava is dilated. Measurements Chambers 2D Name Value Normal Range IVSd (2D) 1 cm (0.6 - 1.1) LVPWd (2D) 1.01 cm (0.6 - 1.1) LVIDd (2D) 4.58 cm (3.7 - 5.6) LVIDs (2D) 3.17 cm (2 - 3.8) LV FS (2D) 30.93 % - EF Teichholz (2D) 58.66 % - Ao root diameter (2D) 2.94 cm (2 - 3.7) Volumes/Mass Name Value Normal Range LA ESV SP 4CH (A/L) 72.82 ml - LA ESV SP 2CH (A/L) 66.86 ml - LA ESV BP (A/L) 74.49 ml - LA ESV SP 4CH (MOD) 71.03 ml - LA ESV SP 2CH (MOD) 64.3 ml - LV EDV SP 4CH (MOD) 98.82 ml - LV ESV SP 4CH (MOD) 24.8 ml - EF SP 4CH (MOD) 74.9 % - LV EDV SP 2CH (MOD) 86.1 ml - LV ESV SP 2CH (MOD) 36.93 ml - EF SP 2CH (MOD) 57.11 % - LV EDV BP 94.4 ml - LV ESV BP 32.66 ml - BP EF (MOD) 65.4 % - Diastolic/Systolic Function Name Value Normal Range MV E-wave Vmax 1.04 m/sec - MV deceleration time 160.46 msec - MV A-wave Vmax 0.92 m/sec - MV E:A ratio 1.14 ratio - Aortic Valve Name Value Normal Range AV Vmax 2.12 m/sec - AV VTI 22.37 cm - AV peak gradient 17.95 mmHg - AV mean gradient 7.29 mmHg - LVOT diameter 2.01 cm - LVOT Vmax 1.8 m/sec - LVOT VTI 27.17 cm - LVOT peak gradient 12.91 mmHg - LVOT mean gradient 6.83 mmHg - SV LVOT 86.42 ml - ANITA (continuity Vmax) 2.7 cm2 - ANITA (continuity VTI) 3.86 cm2 - Ascending Ao 3.18 cm - Tricuspid Valve Name Value Normal Range TV E-wave Vmax 0.88 m/sec - TR Vmax 3.01 m/sec - TR peak gradient 36.27 mmHg - RAP 8 mmHg - RVSP 44 mmHg - IVC diameter 2.65 cm (1.2 - 2.3) Pulmonic Valve/Qp:Qs Name Value Normal Range PV Vmax 1.22 m/sec - PV peak gradient 5.91 mmHg - RVOT Vmax 0.87 m/sec - RVOT VTI 13.32 cm - RVOT peak gradient 3 mmHg - PV acceleration time 110.37 msec - [place]/IV: Voiding Method Incontinent IV Catheter Type [Right Foot] INT / Saline Lock IV Catheter Type [Left Forearm Peripheral IV ] IV Catheter Type [Left Wrist] INT / Saline Lock IV Catheter Type [Right Hand] INT / Saline Lock IV Catheter Type [Right INT / Saline Lock Antecubital] IV Catheter Type [Right Upper Mid-line arm] IV Catheter Type [Left Triple Lumen Cath Internal Jugular] IV Catheter Type [Left Hand] Peripheral IV IV Catheter Type [Left Peripheral IV Antecubital] Active Medications - Current Medications Current Medications: Generic Name Dose Route Start Last Admin Trade Name Freq PRN Reason Stop Dose Admin Acetaminophen 650 mg 10/05/20 16:34 03/15/21 22:09 Acetaminophen 325 Mg/10.15 Ml Oral Liqd Unit Dose FEEDTUBE 650 mg Q6H PRN Administration Non Cardiac Pain or Temp>100.5 Albuterol 2.5 mg 11/05/20 13:03 11/06/20 13:04 Albuterol 2.5 Mg/3 Ml Nebu IH 2.5 mg Q4HRT PRN Administration Shortness Of Breath Alprazolam 0.25 mg 01/20/21 13:33 03/19/21 10:41 Alprazolam 0.25 Mg Tab PO 0.25 mg Q8H PRN Administration Anxiety Lipase/Protease/Amylase 1 each 10/05/20 11:09 Lipase 10,500/Protease 25,000/Amylase 43,750 (Units) Dr Barakat FEEDTUBE PRN PRN For Clogged Feeding Tube Enoxaparin Sodium 40 mg 10/22/20 10:00 03/19/21 10:41 Enoxaparin 40 Mg/0.4 Ml Inj SUB-Q 40 mg DAILY ERINN Administration Protocol Famotidine 20 mg 10/07/20 10:00 03/19/21 22:10 Famotidine 20 Mg Tab PO 20 mg BID ERINN Administration Hydrophilic Ointment 1 applic 01/03/21 13:00 02/16/21 09:56 Lip Therapy Vaseline TP 1 applic DIRECT PRN Administration Dry Lips Dextrose 1,000 mls @ 30 mls/hr 01/03/21 12:00 02/11/21 18:44 D5w IV 30 mls/hr DIRECT ERINN Administration Metoprolol Tartrate 50 mg 02/02/21 16:01 03/19/21 22:10 Metoprolol Tartrate 25 Mg Tab PO 50 mg BID ERINN Administration Morphine Sulfate 2 mg 01/20/21 13:33 Morphine 2 Mg/1 Ml Inj IV Q4H PRN Pain, Moderate (4-6) Ondansetron HCl 4 mg 02/10/21 11:38 02/10/21 13:18 Ondansetron 4 Mg/2 Ml Inj IV 4 mg Q4H PRN Administration Nausea And Vomiting Simple Syrup 15 ml 10/05/20 11:09 Simple Syrup 15 Ml FEEDTUBE PRN PRN Hypoglycemia Simple Syrup 30 ml 10/05/20 11:09 Simple Syrup 15 Ml FEEDTUBE PRN PRN Hypoglycemia Sodium Bicarbonate 325 mg 10/05/20 11:09 12/16/20 08:19 Sodium Bicarbonate 325 Mg Tab FEEDTUBE 325 mg PRN PRN Administration For Clogged Feeding Tube Nutrition/Malnutrition Assess - Dietary Evaluation Nutrition/Malnutrition Findings: Nutrition Notes Start: 10/04/20 11:13 Freq: Status: Active Protocol: Document 03/17/21 11:56 (Rec: 03/17/21 11:59 [id number]) Nutrition Notes Initial or Follow up Reassessment Other Pertinent Diagnosis s/p cardiac arrest x 2, anoxic brain injury Current Diet Promote at 65ml/hr Labs/Tests Reviewed Pertinent Medications Reviewed Height 5 ft 8 in Weight 91.2 kg [place] Body Weight (kg) 63.63 BMI 30.5 Weight Status Obese Subjective/Other Information FU for TF tolerance. Promote is being tolerated at 65 ml/hr . Percent of energy/protein needs met: 100%/100% Burn Absent Trauma Absent GI Symptoms None Difficulty In Swallowing,Chewing Current % PO Negligible Minimum of two criteria Yes Fluid Accumulation Moderate to Severe (severe) #2 Nutrition Diagnosis Malnutrition As Evidenced by Signs and Symptoms no recent wt loss, no edema noted Diagnosis Progress(for reassessment Resolved documentation) #1 Nutrition Diagnosis Inadequate oral intake Diagnosis Progress(for reassessment Continues documentation) Is patient on ventilator? No Is Patient Ambulatory and/or Out of Bed No REE-(Teague-St. Jeor-confined to bed) 2006.580 Kcal/Kg value to use for calculation 16 Approximate Energy Requirements Using 1459 kcal/Kg Calculation Used for Recommendations Kcal/kg Additional Notes PRO needs: 64-80g (.8-1.0 g/kg AdBW 81kg) Fluid needs: 1 mL/kcal or per MD Nutrition Intervention Change Diet Order: Continue Nutrition Support: Promote at 65 mL/hr Flush 100 ml q4h Kcal 1,560 Protein (gm) 98 Fluid (mL) 1,309 Goal #1 TF tolerance Goal #2 TF to meet at least 75% estimated energy and protein needs. Anticipated Discharge Needs: Promote at 65 ml/hr Flush 100 ml q4h Follow-Up By: 03/24/21 Additional Comments F/U for stable weights and TF tolerance
[2021-03-20] MEDS: METOPROLOL TARTRATE 25 MG TAB PO SCH ×3 (10:07→21:11)
[2021-03-20] MEDS: FAMOTIDINE 20 MG TAB PO SCH ×3 (10:08→21:11)
[2021-03-20] MEDS: ENOXAPARIN 40 MG/0.4 ML INJ SUB-Q SCH (11:13)
[2021-03-21] MEDS: ENOXAPARIN 40 MG/0.4 ML INJ SUB-Q SCH (10:57)
[2021-03-21] MEDS: METOPROLOL TARTRATE 25 MG TAB PO SCH ×2 (10:57→21:13)
[2021-03-21] MEDS: FAMOTIDINE 20 MG TAB PO SCH ×2 (10:58→21:13)
[2021-03-21] MEDS: ALPRAZolam 0.25 MG TAB PO PRN ×2 (11:41→21:14)
--- NOTE | 2021-03-22 07:26 | Progress Note ---
Assessment and Plan Assessment and plan: --DIC (disseminated intravascular coagulation) vs HELLP syndrome Resolved --Possible Eclampsia/HELLP Syndrome Resolved --s/p Cardiac arrest x2 on admission and on 10/07 ACLS protocol followed by revival Echo showed preserved Ef --Anoxic brain injury, Developed following cardiac arrest, continue supportive care --Shock-resolved now awaiting placement s/p pressor support --ADOLPH-resolved Stable --Sepsis 2/2 UTI s/p cefepime to cover possible pseudomonas as sputum is also growing GN rods till 01/04/21 Previous urine culture grew pansensitive ecoli Blood cultures from 12/27-no growth --Hypernatremia, resolved, cont free water with TF --DVT prophylaxis Patient presented with DIC No anticoagulants Overall prognosis extremely poor. Daily clinical course 10/02/21 11:30: Pt brought to L&D triage for evaluation of possible labor. Pt accompanied by her spouse. Pt spouse poor historian; unable to obtain history- allergies at this time. Pt taken from registration to triage area via WC. Pt unresponsive, actively seizing with snorous respirations. bb shot packer, Kassy, called and requesting assistance. 11:35: Multiple staff at bedside. Pt 02 sat 67% on nonrebreather, unable to read BP at this time. Yifan Theodore CRNA, at bedside for intubation and assistance with IV insertion. INT attempt by multiple RNs unsuccessful at this time. 11:42: Pt being bagged by KORIN, 02% 79%. No pulse palpated, compressions started at this time; bharati young called and Dr. Newberry preparing OR for emergent c/s. 11:44: Continued compressions on stretcher while transporting pt to OR 1. Pt being bagged with jaw thrust manuever in place by KORNI Stringer student. 11:45: Arrival to OR 1. Dr. Newberry and Dr. Portillo present for emergent c/s. Code team arrived for continued care. patient revived and c/s done Patient has been bleeding from C/s site followed by supracervical hysterectomy for severe bleeding Patient transfused multiple units of PRBC, Patient in DIC. Transferred to the [facility] 10/03. Patient seen and examined at bedside this morning. Patient is nonresponsive and mechanically ventilated. On pressors. Labs reviewed-has leukocytosis, anemia, thrombocytopenia, ADOLPH and lactic acidosis. Started on IV antibiotics to cover possible sepsis secondary to DIC. Hematology oncology recommendations appreciated-needs additional cryoprecipitate and FFP. Monitor D-dimer, fibrinogen and frequent labs. Nephrology consulted for lactic acidosis and ADOLPH. 10/04. Remains mechanically ventilated. [place] antibiotics. Labs shows improved acidosis - lactic acid 3.5. Hb drop noted. Getting transfused 2 units PRBCs. Platelet count is ~40k. Continue to monitor labs closely. Critical care team on board. 10/05; xray reviewed, concerning for multifocal infilrate, likely underlying P[place], will add ID consult to assist with management of this critically ill patient, start tube feed, closely monitor renal system 10/06: Resumed care, remains on mechanical ventilation. No active bleeding, H&H stable. Continue to monitor CBC and BMP. Continue IV antibiotic for underlying pneumonia. Follow critical care and ID recommendation. 10/07: Remains on mechanical ventilation. No active bleeding, H&H stable. Critical care following, wean off ventilation as tolerated. 10/08: Patient had another cardiac arrest last night. Remains on mechanical ventilation, update family. Continue supportive care -poor prognosis 10/09: Called patient mother and discussed about patient care and management. Answered all question to best of my knowledge and family satisfaction. Patient remains on mechanical ventilation, cardiac arrest x2 so far. Critically sick, poor prognosis 10/10: remains on mechanical ventilation. h/h stable, no active bleeding. monitor CBC/BMP 10/11: WBC trended up with diarrhea, started on vancomycin po. remains on MV, off pressor, tolerating TF 10/12: remains on MV, off pressor, tolerating TF. called family for update but unable to reach, could not leave message as it was full. cont supportive care, wean off vent as tolerated. 10/13/2020; patient is on mechanical ventilation, tolerating tube feeding. Patient has labored breathing. Neuro was consulted and recommend MRI. Patient is on Precedex. Rectal tube in place. 10/14/2020; patient is on mechanical ventilation, Precedex. Patient had fever and blood culture ordered. Patient is on IV vancomycin per ID recommendation. Neuro consulted and recommend MRI. Continue to monitor. Prognosis is guarded. 10/15/2020; patient is on mechanical ventilation, Precedex. Patient had fever and blood culture ordered. Patient is on IV vancomycin per ID recommendation. Neuro consulted and recommend MRI. Continue to monitor. Prognosis is guarded. 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 12/06/20; anoxic brain injury. Awaiting placement. 12/07/2020; anoxic brain injury, awaiting placement. 12/09/2020; anoxic brain injury, awaiting placement. 12/10/2020; patient had episodes of fever overnight. CBC, BMP, blood culture, UA and chest x-ray ordered, will follow and manage accordingly. Urinalysis is suggestive of UTI and I put the patient on ceftriaxone, order urine culture. Chest x-ray is normal. 12/11/2020; patient is on ceftriaxone day 2 for UTI. We will continue to follow urine culture. 12/12/2020. Day #3 of Rocephin for UTI. We will continue for 2 more days while she is here. Present UTI. 12/13/2020. Day #4 of Rocephin for UTI. Patient remains on 50% with tracheost jayne. Remains unresponsive with evidence of anoxic encephalopathy unable to make needs known. 12/14/2020. Day #5 of Rocephin for UTI completed today. Remains encephalopathic unable to make needs known. Remains on 50% unable to decrease oxygen via tracheostomy. Overall prognosis remains extremely poor. 3: Continue to monitor. Stop and monitor antibiotics at this time. Continue to wean oxygen as tolerated. Wean oxygen as tolerated. Case management working on placement. 12/16: Continue supportive care aspiration precautions. Awaiting placement discussion. Monitor fever curve. Prognosis remains poor no evidence of neurological recovery as of today 3: Continue supportive care, check labs and chest xray. Still monitor off antibiotics. Monitor Sodium level 12/18: Patient remains with intermittent low grade fever, reviewed EEG from September again, consistent for Ischemic Hypoxic Encephalopathy, patient with decorticating posturing type presentation. Will discuss with gore seamer to opt imize diet so we can discontinue D5. CXR with no abnormality. Discussed extensively with the nursing staff at bedside CXR IMPRESSION: 1. No acute findings. 12/19: No clinical change 12/20: No clinical change, now off abx, monitor, discussed her medications with our pharmacist I believe that her posture and rigidity is likely from underlying anoxic encephalopathy. Continue to monitor and await placement decision. Continue aggressive suctioning. Plan discussed in detail with the nursing staff 12/21: Continue supportive care. Will give 500 cc bolus of fluid today to replace insensible losses. Tachycardia appears to be improving. Blood pressure precludes adjusting cardiac meds. Still awaiting placement from case management. Plan discussed in detail with the nursing staff 12/22. Continue support supportive care. Tracheostomy and PEG in place. Remains nonresponsive. Awaiting placement. 12/23. Continue support supportive care. Tracheostomy and PEG in place. Remains nonresponsive. Awaiting placement. Remains tachycardic. Decrease dose of lasix. Will try low dose metoprolol. Monitor BP closely 12/24. Continue support supportive care. Tracheostomy and PEG in place. Remains nonresponsive. Awaiting placement. Heart rate slightly better. Continue to monitor BP closely 12/25. Continue support supportive care. Tracheostomy and PEG in place. Remains nonresponsive. Awaiting placement. 12/26. Continue support supportive care. Tracheostomy and PEG in place. Remains nonresponsive. Awaiting placement 12/27. Continue support supportive care. Tracheostomy and PEG in place. Remains nonresponsive. Awaiting placement 12/28. Had fever yesterday. Blood culture drawn. UA - UTI - started on antibiotics. Now tracheal aspirate is growing GN rods. 12/29: Continue IV antibiotics, continue supportive care. Since admission patient has shown minimal or no chance of neurological recovery. Need 24/7 assistance. Currently on trach and PEG, nonverbal. Waiting on SNF placement. Discussed with ed case manager today. 12/30: Continue IV antibiotics for UTI, continue supportive care. Pending placement 12/31: continue supportive care. continue supportive care. Pending placement 01/01: continue supportive care. Pending placement. cont Iv abx for UTI till 01/04 01/02: Continue supportive care, pending placement. Sodium level slightly elevated, will start hypotonic fluid. Continue antibiotics till 01/04 01/03; cont hypotonic fluid, increase free water with TF for hypernatremia, follow BMP. cont supportive care. pending placement. cont cefepime. recx blood 01/04: resolved hyponatremia, cont supportive care, pending placement. Last day of supplement today. 01/05: Continue supportive care, pending placement. Monitor H&H and fever curve off antibiotic. 01/06; monitor off abx, suction as needed, Continue supportive care, pending placement. 01/07: Discharge pending on placement, vitals stable. Continue supportive care 01/08: Discharge pending on placement, vitals stable. Continue supportive care. stop lasix, increase metoprolol to 25mg BID for ST. 01/09 patient resting with eyes closed. Opens eyes to tactile stimulus, has a blink reflex, does not follow simple commands, has a T-collar / G-tube Lab results reviewed, low-grade fever, 01/10 Eyes open, does not follow simple commands, no acute events overnight 01/11 no acute events overnight Waiting for placement 01/12 No acute events overnight. Patient awaiting for placement 01/13. No new issues. Awaiting placement 01/14. No new issues. Awaiting placement. 01/15. No new issues. Awaiting placement. 01/16. No new issues. Patient remain stable. Awaiting placement. Check maintenance labs. 01/17. Routine maintenance labs were ordered and are still pending. Await placement. 01/18. Patient with low-grade fever past 24-48 hrs. WBC within normal limits. Check chest x-ray, urinalysis and consider blood cultures. Continue tracheostomy care, secretion control and airway management. Patient currently with PEG and tube feedings at 60 cc an hour. Nutritional support and aspiration precautions. 01/19. Temperature 100.7 overnight. Continue to monitor closely. Continue tracheostomy care, secretion control and airway management. Patient currently with PEG and tube feedings at 60 cc an hour. Nutritional support and aspiration precautions. 01/20. Continue to monitor closely. Continue tracheostomy care, secretion control and airway management. Patient currently with PEG and tube feedings at 60 cc an hour. Nutritional support and aspiration precautions. 01/21. Afebrile overnight. Continue to monitor closely. Continue tracheostomy care, secretion control and airway management. Patient currently with PEG and tube feedings at 60 cc an hour. Nutritional support and aspiration precautions. 01/22. Continue to monitor closely. Continue tracheostomy care, secretion control and airway management. Patient currently with PEG and tube feedings at 60 cc an hour. Nutritional support and aspiration precautions. 01/23. Continue tracheostomy care, secretion control and airway management. Patient currently with PEG and tube feedings at 60 cc an hour. Nutritional support and aspiration precautions. Will get routine labs tomorrow. 01/24. Labs reviewed. No abnormalities. Continue tracheostomy care, secretion control and airway management. Patient currently with PEG and tube feedings at 60 cc an hour. Nutritional support and aspiration precautions. 01/25. Temp 100.6. More sleepy today. Will get chest xray, blood culture, urinalysis, sputum cultures. Will start on empirical abx. 01/26: Vitals noted, slightly tachycardic. Follow culture work-up, continue supportive care. 01/27: Spiking low-grade temp, negative UA, sputum culture and recent blood cultures also negative. Continue to monitor off antibiotics. Continue supportive care. Pending placement. 01/28: cont to spike low grade temp, negative UA, sputum culture and recent blood cultures also negative. Continue to monitor off antibiotics. will order fpr sinus xry. Continue supportive care. Pending placement. 01/29: Continue to follow clinically, intermittently spiking low-grade temp, all recent culture work is negative, negative UA, normal respiratory jaylan 1 tracheal aspirate. Vitals noted and currently stable. Pending placement 01/30: Clinically unchanged, continue to monitor vitals, continue supportive cares. Pending placement. Discussed plan of care with RN at the bedside. 01/31 - TODATE: cont supportive care, pending placement. monitor vitals carefully. Discussed with family at the bedside. 02/06. Patient afebrile today. Continue trach care. Secretions stable today. Culture data negative so far. Awaiting placement. 02/07. Awaiting placement awaiting family member to evaluate papers. Continue trach care secretions stable. Pending placement 02/09: Intermittent fever, ?drug related, will check cxr and also labs. No new complaints. 02/10: Patient's trach dislodged today. Nevertheless respiratory status is intact attempt to reinsert was unsuccessful will monitor discussed with nursing staff to pay close attention to the patient. Considering that this was not a planned decannulation I will start the patient on continuous pulse ox until full evaluation was done by pulmonary. 02/13/2021 Vital signs stable Unresponsive secondary to anoxic encephalopathy Awaiting placement 02/14/2021 Awaiting placement 02/15/2021 Anoxic encephalopathy Awaiting placement 02/16/2021 Anoxic encephalopathy Awaiting placement 02/17/2021 Anoxic encephalopathy awaiting placement 02/18/2021 Anoxic encephalopathy awaiting placement 02/19/2021 Anoxic encephalopathy awaiting placement 02/20/2021 Anoxic encephalopathy awaiting placement 02/21/2021 Anoxic encephalopathy awaiting placement 02/22/2021 Anoxic encephalopathy awaiting placement 02/23/2021 Anoxic encephalopathy awaiting placement 02/24/2021 Anoxic encephalopathy awaiting placement 02/25/2021 Anoxic encephalopathy waiting for placement 02/26 Awaiting placement 02/27. Awaiting placement 02/28. No change in medical condition. Awaiting placement 03/01. No medical changes noted. Awaiting placement 03/01. No medical changes noted. Awaiting placement 03/02. Had temperature more than 100 Fahrenheit. Ordered labs and chest x-ray. Labs reviewed. No pna and no leukocytosis. Procalcitonin negative. Blood cultures negative so far. Continue to monitor for now 03/03 - 03/11. No overnight events. Awaiting placement. 03/12-03/15. Awaiting placement. Continue trach care, secretion control and airway management. Gastrostomy tube care. Continue tube feedings per dietitian. Mobility protocols for pressure ulcer prophylaxis. Check routine labs 03/16/2021; Awaiting placement. Patient is on PEG tube feeding. Saturating well on room air. Patient is mildly tachycardic. Pending placement. 03/17/2021; Awaiting placement. Patient is on PEG tube feeding. Saturating well on room air. Patient is mildly tachycardic. Pending placement. 03/18/2021; awaiting placement. 03/19/2021; awaiting placement. 03/20/2021; awaiting placement. 02/18/21; awaiting placement. 02/19/2021; Awaiting placement. Patient is on PEG tube feeding. Saturating well on room air. Patient is mildly tachycardic. Pending placement. History Interval history: 30 year old -Emirati female CHE 10/25/20 at 36w5d who presents with seizures in triage on 10/02/20. Pt was not able to provide history but per pt's , she presented to the hospital to return a 24 hour urine specimen for analysis. She then suddenly reported that she did not feel good. She was taken to labor and delivery and shortly after arrival, she began seizing. During this time, a code met was called because the patient became hypoxic. She was then noted to be without a pulse. Chest compressions were started immediately, and the patient was emergently taken to the operating room for delivery of the fetus. Off note, This patient has had care at [facility] with comanagement by [facility] since 11 wks complicated by ADHD, morbid obesity, generalized anxiety disorder, panic attacks, chronic narcotic use, fibromyalgia, GERD, Irritable Bowel Syndrome, Migraines, h/o endometrial ablation and ovarian vein embolization, genital herpes, insomnia, LGA fetus, nausea and vomiting, polyhydramnios, quad screen positive for Down's Syndrome, and previous x 3. She was GBS negative. History Interval history: Patient was seen and evaluated this morning Patient is does not follow commands Patient has contracted extremities Hospitalist Physical - Physical exam Narrative exam: VITAL SIGNS: Reviewed. GENERAL: On PEG HEAD: No signs of head trauma. EYES: Pupils are equal. MOUTH: OT in place NECK: No adenopathy, no JVD. CHEST: Rales posteriorly CARDIAC: normal S1 and S2, without murmurs, gallops, or rubs. Tachycardia. ABDOMEN: Soft, non tender and non distended. surgical wound in tact, No rebound or guarding, and no masses palpated. Bowel Sounds normal. MUSCULOSKELETAL: No edema Extremities; contracted NEUROLOGIC EXAM: Does not follow command. SKIN: No obvious lesions - Constitutional Vitals: Temp Pulse Resp BP Pulse Ox 97.8 F 85 18 108/82 99 03/22/21 04:00 03/22/21 03:56 03/22/21 04:00 03/22/21 04:00 03/22/21 03:56 General appearance: Present: well-nourished, other (Anoxic encephalopathy) HEART Score - HEART Score Age: < 45 Risk factors: 1-2 risk factors - Critical Actions Critical Actions: >7 pts:50-65% risk of adverse cardiac event. Early invasive measures Results - Labs CBC & Chem 7: 03/16/21 04:42 03/16/21 04:42 Labs: Laboratory Last Values WBC 9.4 K/mm3 (4.5-11.0) 03/16/21 04:42 RBC 5.06 M/mm3 (3.65-5.03) H 03/16/21 04:42 Hgb 12.2 gm/dl (10.1-14.3) 03/16/21 04:42 Hgb Comment See scanned result 10/04/20 Unknown Hct 37.6 % (30.3-42.9) 03/16/21 04:42 MCV 74 fl (79-97) L 03/16/21 04:42 MCH 24 pg (28-32) L 03/16/21 04:42 MCHC 33 % (30-34) 03/16/21 04:42 RDW 15.8 % (13.2-15.2) H 03/16/21 04:42 Plt Count 311 K/mm3 (140-440) 03/16/21 04:42 Lymph % (Auto) 33.5 % (13.4-35.0) 03/16/21 04:42 [place] % (Auto) 8.1 % (0.0-7.3) H 03/16/21 04:42 Eos % (Auto) 1.7 % (0.0-4.3) 03/16/21 04:42 Baso % (Auto) 0.5 % (0.0-1.8) 03/16/21 04:42 Lymph # (Auto) 3.1 K/mm3 (1.2-5.4) 03/16/21 04:42 [place] # (Auto) 0.8 K/mm3 (0.0-0.8) 03/16/21 04:42 Eos # (Auto) 0.2 K/mm3 (0.0-0.4) 03/16/21 04:42 Baso # (Auto) 0.0 K/mm3 (0.0-0.1) 03/16/21 04:42 Add Manual Diff Complete 02/09/21 10:59 Total Counted 100 02/09/21 10:59 Seg Neutrophils % 56.2 % (40.0-70.0) 03/16/21 04:42 Seg Neuts % (Manual) 58.0 % (40.0-70.0) 02/09/21 10:59 Band Neutrophils % 2.0 % 10/15/20 05:50 Lymphocytes % (Manual) 29.0 % (13.4-35.0) 02/09/21 10:59 Reactive Lymphs % (Man) 1.0 % 10/02/20 12:18 Monocytes % (Manual) 13.0 % (0.0-7.3) H 02/09/21 10:59 Eosinophils % (Manual) 1.0 % (0.0-4.3) 10/29/20 07:56 Myelocytes % 2.0 % 10/02/20 13:05 Metamyelocytes % 1.0 % 10/14/20 04:00 Nucleated RBC % Not Reportable 02/09/21 10:59 Seg Neutrophils # 5.3 K/mm3 (1.8-7.7) 03/16/21 04:42 Seg Neutrophils # Man 3.7 K/mm3 (1.8-7.7) 02/09/21 10:59 Band Neutrophils # 0.0 K/mm3 02/09/21 10:59 Lymphocytes # (Manual) 1.8 K/mm3 (1.2-5.4) 02/09/21 10:59 Abs React Lymphs (Man) 0.0 K/mm3 02/09/21 10:59 Monocytes # (Manual) 0.8 K/mm3 (0.0-0.8) 02/09/21 10:59 Eosinophils # (Manual) 0.0 K/mm3 (0.0-0.4) 02/09/21 10:59 Basophils # (Manual) 0.0 K/mm3 (0.0-0.1) 02/09/21 10:59 Metamyelocytes # 0.0 K/mm3 02/09/21 10:59 Myelocytes # 0.0 K/mm3 02/09/21 10:59 Promyelocytes # 0.0 K/mm3 02/09/21 10:59 Blast Cells # 0.0 K/mm3 02/09/21 10:59 WBC Morphology Not Reportable 02/09/21 10:59 Hypersegmented Neuts Not Reportable 02/09/21 10:59 Hyposegmented Neuts Not Reportable 02/09/21 10:59 Hypogranular Neuts Not Reportable 02/09/21 10:59 Smudge Cells Not Reportable 02/09/21 10:59 Toxic Granulation Not Reportable 02/09/21 10:59 Toxic Vacuolation Not Reportable 02/09/21 10:59 Dohle Bodies Not Reportable 02/09/21 10:59 Pelger-Huet Anomaly Not Reportable 02/09/21 10:59 Ester Rods Not Reportable 02/09/21 10:59 Platelet Estimate Consistent w auto 02/09/21 10:59 Clumped Platelets Not Reportable 02/09/21 10:59 Plt Clumps, EDTA Not Reportable 02/09/21 10:59 Large Platelets Few 02/09/21 10:59 Giant Platelets Not Reportable 02/09/21 10:59 Platelet Satelliting Not Reportable 02/09/21 10:59 Plt Morphology Comment Not Reportable 02/09/21 10:59 RBC Morphology Not Reportable 02/09/21 10:59 Dimorphic RBCs Not Reportable 02/09/21 10:59 Polychromasia Not Reportable 02/09/21 10:59 Hypochromasia 1+ 02/09/21 10:59 Poikilocytosis Not Reportable 02/09/21 10:59 Anisocytosis Not Reportable 02/09/21 10:59 Microcytosis Not Reportable 02/09/21 10:59 Macrocytosis Not Reportable 02/09/21 10:59 Spherocytes Not Reportable 02/09/21 10:59 Pappenheimer Bodies Not Reportable 02/09/21 10:59 Sickle Cells Not Reportable 02/09/21 10:59 Target Cells Not Reportable 02/09/21 10:59 Tear Drop Cells Not Reportable 02/09/21 10:59 Ovalocytes Not Reportable 02/09/21 10:59 Stomatocytes Few 10/14/20 04:00 Helmet Cells Not Reportable 02/09/21 10:59 [place] 6 Bodies Not Reportable 02/09/21 10:59 [place] Rings Not Reportable 02/09/21 10:59 [place] Cells Not Reportable 02/09/21 10:59 Bite Cells Not Reportable 02/09/21 10:59 Crenated Cell Not Reportable 02/09/21 10:59 Elliptocytes Not Reportable 02/09/21 10:59 Acanthocytes (Spur) Not Reportable 02/09/21 10:59 Rouleaux Not Reportable 02/09/21 10:59 Hemoglobin C Crystals Not Reportable 02/09/21 10:59 Schistocytes Not Reportable 02/09/21 10:59 Malaria parasites Not Reportable 02/09/21 10:59 Sickle Cell Solubility See scanned result 10/04/20 Unknown Hemoglobin A See scanned result 10/04/20 Unknown Hemoglobin A2 See scanned result 10/04/20 Unknown Hemoglobin A2 Prime See scanned result 10/04/20 Unknown Hemoglobin C See scanned result 10/04/20 Unknown Hemoglobin D See scanned result 10/04/20 Unknown Hemoglobin E See scanned result 10/04/20 Unknown Hgb F Diffential Stain See scanned result 10/04/20 Unknown Hemoglobin F Quant See scanned result 10/04/20 Unknown Hemoglobin G See scanned result 10/04/20 Unknown Hemoglobin S See scanned result 10/04/20 Unknown Hemoglobin [place] See scanned result 10/04/20 Unknown Hemoglobin [place] See scanned result 10/04/20 Unknown Hemoglobin Analilia See scanned result 10/04/20 Unknown Variant Hemoglobin See scanned result 10/04/20 Unknown Abnorm Hgb IEF Confirm See scanned result 10/04/20 Unknown Hemoglobin Interpret See scanned result 10/04/20 Unknown Hemoglobinopathy Note See scanned result 10/04/20 Unknown Sharad Bodies Not Reportable 02/09/21 10:59 Hem Pathologist Commnt No 02/09/21 10:59 PT 13.6 Sec. (12.2-14.9) 10/21/20 13:54 INR 1.06 (0.87-1.13) 10/21/20 13:54 APTT 31.6 Sec. (24.2-36.6) 10/03/20 00:40 Fibrinogen 336 mg/dl (211-480) 10/04/20 10:00 D-Dimer 1974.47 ng/mlDDU (0-234) H 11/11/20 13:50 ABG pH 7.459 pH Units (7.350-7.450) H 10/26/20 10:30 POC ABG pCO2 20.7 mmHg (32.0-48.0) L 10/13/20 07:18 ABG pCO2 32.4 mm Hg 10/26/20 10:30 POC ABG pO2 137.9 mmHg (83-108) H 10/13/20 07:18 ABG pO2 112.2 mm Hg (80.0-90.0) H 10/26/20 10:30 POC ABG HCO3 14.8 10/13/20 07:18 ABG HCO3 22.5 mmol/L (20.0-26.0) 10/26/20 10:30 ABG O2 Saturation 98.2 % (95.0-99.0) 10/26/20 10:30 ABG O2 Content 18.5 (0.0-44) 10/26/20 10:30 POC ABG Base Excess -6.9 10/13/20 07:18 ABG Base Excess -0.6 mmol/L (-2.0-3.0) 10/26/20 10:30 ABG Hemoglobin 13.5 gm/dl (12.0-16.0) 10/26/20 10:30 ABG Oxyhemoglobin 98.3 (94-98) H 10/13/20 07:18 ABG Carboxyhemoglobin 1.3 % (0.0-5.0) 10/26/20 10:30 ABG Methemoglobin 0.5 % (0.0-1.5) 10/26/20 10:30 ABG Sodium 135.9 mmol/L (136.0-145.0) L 10/13/20 07:18 ABG Potassium 3.7 mmol/L (3.40-4.50) 10/13/20 07:18 ABG Chloride 111.0 mmol/L (98-107) H 10/13/20 07:18 ABG Glucose 109 mg/dL (65-95) H 10/13/20 07:18 VBG pH 6.949 (7.320-7.420) L* 10/02/20 Unknown Oxyhemoglobin 96.5 % (95.0-99.0) 10/26/20 10:30 Carboxyhemoglobin 0.3 (0.5-1.5) L 10/13/20 07:18 FiO2 25 % 10/26/20 10:30 Sodium 140 mmol/L (137-145) 03/16/21 04:42 Potassium 3.9 mmol/L (3.6-5.0) 03/16/21 04:42 Chloride 103.1 mmol/L (98-107) 03/16/21 04:42 Carbon Dioxide 25 mmol/L (22-30) 03/16/21 04:42 Anion Gap 16 mmol/L 03/16/21 04:42 BUN 12 mg/dL (7-17) 03/16/21 04:42 Creatinine 0.5 mg/dL (0.6-1.2) L 03/16/21 04:42 Estimated GFR > 60 ml/min 03/16/21 04:42 BUN/Creatinine Ratio 24 % 03/16/21 04:42 Glucose 95 mg/dL (65-100) 03/16/21 04:42 POC Glucose 92 mg/dL (70-105) 03/22/21 05:01 Random Insulin 43.2 uIU/mL (<=19.6) H 11/02/20 19:19 Proinsulin See scanned result 11/02/20 19:19 C-Peptide 6.23 ng/mL (0.80-3.85) H 11/02/20 19:19 Lactic Acid 1.90 mmol/L (0.7-2.0) 10/04/20 22:00 Uric Acid 7.5 mg/dL (3.5-7.6) 10/02/20 13:05 Calcium 9.6 mg/dL (8.4-10.2) 03/16/21 04:42 Ionized Calcium 4.4 mg/dL (4.8-5.6) L 10/07/20 21:00 Phosphorus 4.60 mg/dL (2.5-4.5) H 11/13/20 10:05 Magnesium 2.10 mg/dL (1.7-2.3) 11/13/20 10:05 Total Bilirubin 0.80 mg/dL (0.1-1.2) 03/04/21 04:46 AST 51 units/L (5-40) H 03/04/21 04:46 ALT 53 units/L (7-56) 03/04/21 04:46 Alkaline Phosphatase 117 units/L (35-129) 03/04/21 04:46 Lactate Dehydrogenase 769 units/L (91-180) H 10/02/20 13:05 C-Reactive Protein 0.70 mg/dL (0.00-1.30) 11/11/20 13:50 NT-Pro-B Natriuret Pep 2788 pg/mL (0-450) H 10/04/20 10:00 Total Protein 8.4 g/dL (6.3-8.2) H 03/04/21 04:46 Albumin 4.2 g/dL (3.9-5) 05/20/21 04:46 Albumin/Globulin Ratio 1.0 % 03/04/21 04:46 Procalcitonin < 0.05 ng/mL (<0.15) 03/02/21 02:30 Arterial Blood Glucose 109 mg/dL (65-95) H 10/13/20 07:18 Arterial Blood Ionized Calcium 4.6 mg/dL (4.6-5.3) 10/13/20 07:18 Urine Color Yellow (Yellow) 01/25/21 09:51 Urine Turbidity Cloudy (Clear) 01/25/21 09:51 Urine pH 7.0 (5.0-7.0) 01/25/21 09:51 Ur Specific Benedict 1.011 (1.003-1.030) 01/25/21 09:51 Urine Protein <15 mg/dl mg/dL (Negative) 01/25/21 09:51 Urine Glucose (UA) Neg mg/dL (Negative) 01/25/21 09:51 Urine Ketones Neg mg/dL (Negative) 01/25/21 09:51 Urine Blood Neg (Negative) 01/25/21 09:51 Urine Nitrite Neg (Negative) 01/25/21 09:51 Urine Bilirubin Neg (Negative) 01/25/21 09:51 Urine Urobilinogen < 2.0 mg/dL (<2.0) 01/25/21 09:51 Ur Leukocyte Esterase Neg (Negative) 01/25/21 09:51 Urine WBC (Auto) 6.0 /HPF (0.0-6.0) 01/25/21 09:51 Urine RBC (Auto) 3.0 /HPF (0.0-6.0) 01/25/21 09:51 U Epithel Cells (Auto) < 1.0 /HPF (0-13.0) 01/25/21 09:51 Urine Bacteria (Auto) 1+ /HPF (Negative) 01/18/21 08:47 Urine WBC Clumps 3+ /HPF 11/11/20 13:50 Calcium Oxalate Crystal Few 11/11/20 13:50 Urine Mucus Few /HPF 01/25/21 09:51 Urine Yeast (Budding) 2+ /HPF 01/25/21 09:51 Vancomycin Trough 12.6 ug/mL (5.0-20.0) 10/21/20 13:54 Random Vancomycin 10.7 ug/mL (0-40.0) 10/16/20 13:09 Phenytoin 5.7 ug/mL (10.0-20.0) L 10/13/20 07:00 C. difficile Tox (PCR) Positive (Negative) 10/16/20 10:22 Coronavirus (PCR) Negative (Negative) 10/08/20 14:15 Blood Type O POSITIVE 10/02/20 12:50 Antibody Screen Negative 10/02/20 12:50 Crossmatch See Detail 10/02/20 12:50 - Diagnostic Impressions Diagnostic Impressions: Echocardiogram 10/03/20 13:42 Transthoracic Echocardiogram Indication: S/P Cardiac Arrest R/O Cardiomyopathy BP: 133/71 Conclusions *Global left ventricular systolic function is normal. *The estimated ejection fraction is 60-65%. *There is trace of mitral regurgitation. *The right 0heart chambers are both slightly dilated. *There is mild tricuspid regurgitation. *There is mild-moderate pulmonary hypertension. *The right ventricular systolic pressure is calculated at 44 mmHg. *The study quality is technically difficult. Findings Procedure Info: The study quality is technically difficult. The study is technically limited due to patient body habitus. The study was technically limited due to the patient's inability to lay in the left lateral decubitus position. Left Ventricle: The left ventricular chamber size is normal. There is no left ventricular hypertrophy. Global left ventricular systolic function is normal. The estimated ejection fraction is 60-65%. Left Atrium: The left atrial chamber size is normal. Right Ventricle: The right ventricle is slightly dilated. Right Atrium: The right atrium is mildly dilated. Aortic Valve: The aortic valve leaflets are mildly thickened. There is no evidence of aortic regurgitation. There is no evidence of aortic stenosis. Mitral Valve: The mitral valve leaflets are mildly thickened. There is trace of mitral regurgitation. There is no evidence of mitral stenosis. Tricuspid Valve: There is mild tricuspid regurgitation. The right ventricular systolic pressure is calculated at 44 mmHg. There is evidence of mild pulmonary hypertension. Pulmonic Valve: There is trace pulmonic regurgitation. Pericardium: There is no pericardial effusion. Aorta: There is no dilatation of the ascending aorta. There is no dilatation of the aortic root. Venous: The inferior vena cava is dilated. Measurements Chambers 2D Name Value Normal Range IVSd (2D) 1 cm (0.6 - 1.1) LVPWd (2D) 1.01 cm (0.6 - 1.1) LVIDd (2D) 4.58 cm (3.7 - 5.6) LVIDs (2D) 3.17 cm (2 - 3.8) LV FS (2D) 30.93 % - EF Teichholz (2D) 58.66 % - Ao root diameter (2D) 2.94 cm (2 - 3.7) Volumes/Mass Name Value Normal Range LA ESV SP 4CH (A/L) 72.82 ml - LA ESV SP 2CH (A/L) 66.86 ml - LA ESV BP (A/L) 74.49 ml - LA ESV SP 4CH (MOD) 71.03 ml - LA ESV SP 2CH (MOD) 64.3 ml - LV EDV SP 4CH (MOD) 98.82 ml - LV ESV SP 4CH (MOD) 24.8 ml - EF SP 4CH (MOD) 74.9 % - LV EDV SP 2CH (MOD) 86.1 ml - LV ESV SP 2CH (MOD) 36.93 ml - EF SP 2CH (MOD) 57.11 % - LV EDV BP 94.4 ml - LV ESV BP 32.66 ml - BP EF (MOD) 65.4 % - Diastolic/Systolic Function Name Value Normal Range MV E-wave Vmax 1.04 m/sec - MV deceleration time 160.46 msec - MV A-wave Vmax 0.92 m/sec - MV E:A ratio 1.14 ratio - Aortic Valve Name Value Normal Range AV Vmax 2.12 m/sec - AV VTI 22.37 cm - AV peak gradient 17.95 mmHg - AV mean gradient 7.29 mmHg - LVOT diameter 2.01 cm - LVOT Vmax 1.8 m/sec - LVOT VTI 27.17 cm - LVOT peak gradient 12.91 mmHg - LVOT mean gradient 6.83 mmHg - SV LVOT 86.42 ml - ANITA (continuity Vmax) 2.7 cm2 - ANITA (continuity VTI) 3.86 cm2 - Ascending Ao 3.18 cm - Tricuspid Valve Name Value Normal Range TV E-wave Vmax 0.88 m/sec - TR Vmax 3.01 m/sec - TR peak gradient 36.27 mmHg - RAP 8 mmHg - RVSP 44 mmHg - IVC diameter 2.65 cm (1.2 - 2.3) Pulmonic Valve/Qp:Qs Name Value Normal Range PV Vmax 1.22 m/sec - PV peak gradient 5.91 mmHg - RVOT Vmax 0.87 m/sec - RVOT VTI 13.32 cm - RVOT peak gradient 3 mmHg - PV acceleration time 110.37 msec - [place]/IV: Voiding Method Indwelling Catheter IV Catheter Type [Right Foot] INT / Saline Lock IV Catheter Type [Left Forearm Peripheral IV ] IV Catheter Type [Left Wrist] INT / Saline Lock IV Catheter Type [Right Hand] INT / Saline Lock IV Catheter Type [Right INT / Saline Lock Antecubital] IV Catheter Type [Right Upper Mid-line arm] IV Catheter Type [Left Triple Lumen Cath Internal Jugular] IV Catheter Type [Left Hand] Peripheral IV IV Catheter Type [Left Peripheral IV Antecubital] Active Medications - Current Medications Current Medications: Generic Name Dose Route Start Last Admin Trade Name Freq PRN Reason Stop Dose Admin Acetaminophen 650 mg 10/05/20 16:34 03/15/21 22:09 Acetaminophen 325 Mg/10.15 Ml Oral Liqd Unit Dose FEEDTUBE 650 mg Q6H PRN Administration Non Cardiac Pain or Temp>100.5 Albuterol 2.5 mg 11/05/20 13:03 11/06/20 13:04 Albuterol 2.5 Mg/3 Ml Nebu IH 2.5 mg Q4HRT PRN Administration Shortness Of Breath Alprazolam 0.25 mg 01/20/21 13:33 03/21/21 21:14 Alprazolam 0.25 Mg Tab PO 0.25 mg Q8H PRN Administration Anxiety Lipase/Protease/Amylase 1 each 10/05/20 11:09 Lipase 10,500/Protease 25,000/Amylase 43,750 (Units) Dr Barakat FEEDTUBE PRN PRN For Clogged Feeding Tube Enoxaparin Sodium 40 mg 10/22/20 10:00 03/21/21 10:57 Enoxaparin 40 Mg/0.4 Ml Inj SUB-Q 40 mg DAILY ERINN Administration Protocol Famotidine 20 mg 10/07/20 10:00 06/06/21 21:13 Famotidine 20 Mg Tab PO 20 mg BID ERINN Administration Hydrophilic Ointment 1 applic 01/03/21 13:00 02/16/21 09:56 Lip Therapy Vaseline TP 1 applic DIRECT PRN Administration Dry Lips Dextrose 1,000 mls @ 30 mls/hr 01/03/21 12:00 02/11/21 18:44 D5w IV 30 mls/hr DIRECT ERINN Administration Metoprolol Tartrate 50 mg 02/02/21 16:01 03/21/21 21:13 Metoprolol Tartrate 25 Mg Tab PO 50 mg BID ERINN Administration Morphine Sulfate 2 mg 01/20/21 13:33 Morphine 2 Mg/1 Ml Inj IV Q4H PRN Pain, Moderate (4-6) Ondansetron HCl 4 mg 02/10/21 11:38 02/10/21 13:18 Ondansetron 4 Mg/2 Ml Inj IV 4 mg Q4H PRN Administration Nausea And Vomiting Simple Syrup 15 ml 10/05/20 11:09 Simple Syrup 15 Ml FEEDTUBE PRN PRN Hypoglycemia Simple Syrup 30 ml 10/05/20 11:09 Simple Syrup 15 Ml FEEDTUBE PRN PRN Hypoglycemia Sodium Bicarbonate 325 mg 10/05/20 11:09 12/16/20 08:19 Sodium Bicarbonate 325 Mg Tab FEEDTUBE 325 mg PRN PRN Administration For Clogged Feeding Tube Nutrition/Malnutrition Assess - Dietary Evaluation Nutrition/Malnutrition Findings: Nutrition Notes Start: 10/04/20 11:13 Freq: Status: Active Protocol: Document 03/17/21 11:56 (Rec: 03/17/21 11:59 [id number]) Nutrition Notes Initial or Follow up Reassessment Other Pertinent Diagnosis s/p cardiac arrest x 2, anoxic brain injury Current Diet Promote at 65ml/hr Labs/Tests Reviewed Pertinent Medications Reviewed Height 5 ft 8 in Weight 91.2 kg [place] Body Weight (kg) 63.63 BMI 30.5 Weight Status Obese Subjective/Other Information FU for TF tolerance. Promote is being tolerated at 65 ml/hr . Percent of energy/protein needs met: 100%/100% Burn Absent Trauma Absent GI Symptoms None Difficulty In Swallowing,Chewing Current % PO Negligible Minimum of two criteria Yes Fluid Accumulation Moderate to Severe (severe) #2 Nutrition Diagnosis Malnutrition As Evidenced by Signs and Symptoms no recent wt loss, no edema noted Diagnosis Progress(for reassessment Resolved documentation) #1 Nutrition Diagnosis Inadequate oral intake Diagnosis Progress(for reassessment Continues documentation) Is patient on ventilator? No Is Patient Ambulatory and/or Out of Bed No REE-([facility]-confined to bed) 2006.580 Kcal/Kg value to use for calculation 16 Approximate Energy Requirements Using 1459 kcal/Kg Calculation Used for Recommendations Kcal/kg Additional Notes PRO needs: 64-80g (.8-1.0 g/kg AdBW 81kg) Fluid needs: 1 mL/kcal or per MD Nutrition Intervention Change Diet Order: Continue Nutrition Support: Promote at 65 mL/hr Flush 100 ml q4h Kcal 1,560 Protein (gm) 98 Fluid (mL) 1,309 Goal #1 TF tolerance Goal #2 TF to meet at least 75% estimated energy and protein needs. Anticipated Discharge Needs: Promote at 65 ml/hr Flush 100 ml q4h Follow-Up By: 03/24/21 Additional Comments F/U for stable weights and TF tolerance
[2021-03-22] MEDS: METOPROLOL TARTRATE 25 MG TAB PO SCH ×2 (09:19→22:16)
[2021-03-22] MEDS: FAMOTIDINE 20 MG TAB PO SCH ×2 (09:19→22:16)
[2021-03-22] MEDS: ENOXAPARIN 40 MG/0.4 ML INJ SUB-Q SCH (09:19)
[2021-03-22] MEDS: ALPRAZolam 0.25 MG TAB PO PRN ×2 (09:19→17:56)
[2021-03-22] MEDS: ACETAMINOPHEN 325 MG/10.15 ML ORAL LIQD UNIT DOSE FEEDTUBE PRN (17:55)
--- NOTE | 2021-03-23 08:24 | Progress Note ---
Assessment and Plan Assessment and plan: --Acute hypoxic respiratory failure: Tracheostomy on T-piece , today on 4.5 L oxygen, saturating 100% Supportive care, Pulmonary critical following --s/p Cardiac arrest x2 on admission and on 10/07 ACLS protocol followed by revival, Echo showed preserved Ef --Anoxic brain injury, Developed following cardiac arrest, continue supportive care --Shock-resolved now awaiting placement, s/p pressor support --DIC (disseminated intravascular coagulation) vs HELLP syndrome , Resolved --Possible Eclampsia/HELLP Syndrome, Resolved --ADOLPH-resolved, Stable --Sepsis 2/2 UTI s/p cefepime to cover possible pseudomonas as sputum is also growing GN rods till 01/04/21 Previous urine culture grew pansensitive ecoli Blood cultures from 12/27-no growth --Hypernatremia, resolved, cont free water with TF --DVT prophylaxis Patient presented with DIC No anticoagulants Overall prognosis extremely poor. Daily clinical course 10/02/21 11:30: Pt brought to L&D triage for evaluation of possible labor. Pt accompanied by her spouse. Pt spouse poor historian; unable to obtain history- allergies at this time. Pt taken from registration to triage area via WC. Pt unresponsive, actively seizing with snorous respirations. field producer, Kassy, called and requesting assistance. 11:35: Multiple staff at bedside. Pt 02 sat 67% on nonrebreather, unable to read BP at this time. Yifan Theodore CRNA, at bedside for intubation and assistance with IV insertion. INT attempt by multiple RNs unsuccessful at this time. 11:42: Pt being bagged by KORIN, 02% 79%. No pulse palpated, compressions started at this time; bharati young called and Dr. Newberry preparing OR for emergent c/s. 11:44: Continued compressions on stretcher while transporting pt to OR 1. Pt being bagged with jaw thrust manuever in place by KORIN Stringer student. 11:45: Arrival to OR 1. Dr. Newberry and Dr. Portillo present for emergent c/s. Code team arrived for continued care. patient revived and c/s done Patient has been bleeding from C/s site followed by supracervical hysterectomy for severe bleeding Patient transfused multiple units of PRBC, Patient in DIC. Transferred to the ICU 10/03. Patient seen and examined at bedside this morning. Patient is nonresponsive and mechanically ventilated. On pressors. Labs reviewed-has leukocytosis, anemia, thrombocytopenia, ADOLPH and lactic acidosis. Started on IV antibiotics to cover possible sepsis secondary to DIC. Hematology oncology recommendations appreciated-needs additional cryoprecipitate and FFP. Monitor D-dimer, fibrinogen and frequent labs. Nephrology consulted for lactic acidosis and ADOLPH. 10/04. Remains mechanically ventilated. Kevin antibiotics. Labs shows improved acidosis - lactic acid 3.5. Hb drop noted. Getting transfused 2 units PRBCs. Platelet count is ~40k. Continue to monitor labs closely. Critical care team on board. 10/05; xray reviewed, concerning for multifocal infilrate, likely underlying Pneumonia, will add ID consult to assist with management of this critically ill patient, start tube feed, closely monitor renal system 10/06: Resumed care, remains on mechanical ventilation. No active bleeding, H&H stable. Continue to monitor CBC and BMP. Continue IV antibiotic for underlying pneumonia. Follow critical care and ID recommendation. 10/07: Remains on mechanical ventilation. No active bleeding, H&H stable. Critical care following, wean off ventilation as tolerated. 10/08: Patient had another cardiac arrest last night. Remains on mechanical ventilation, update family. Continue supportive care -poor prognosis 10/09: Called patient mother and discussed about patient care and management. Answered all question to best of my knowledge and family satisfaction. Patient remains on mechanical ventilation, cardiac arrest x2 so far. Critically sick, poor prognosis 10/10: remains on mechanical ventilation. h/h stable, no active bleeding. monitor CBC/BMP 10/11: WBC trended up with diarrhea, started on vancomycin po. remains on MV, off pressor, tolerating TF 10/12: remains on MV, off pressor, tolerating TF. called family for update but unable to reach, could not leave message as it was full. cont supportive care, wean off vent as tolerated. 10/13/2020; patient is on mechanical ventilation, tolerating tube feeding. Patient has labored breathing. Neuro was consulted and recommend MRI. Patient is on Precedex. Rectal tube in place. 10/14/2020; patient is on mechanical ventilation, Precedex. Patient had fever and blood culture ordered. Patient is on IV vancomycin per ID recommendation. Neuro consulted and recommend MRI. Continue to monitor. Prognosis is guarded. 10/15/2020; patient is on mechanical ventilation, Precedex. Patient had fever and blood culture ordered. Patient is on IV vancomycin per ID recommendation. Neuro consulted and recommend MRI. Continue to monitor. Prognosis is guarded. 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 12/06/20; anoxic brain injury. Awaiting placement. 12/07/2020; anoxic brain injury, awaiting placement. 12/09/2020; anoxic brain injury, awaiting placement. 12/10/2020; patient had episodes of fever overnight. CBC, BMP, blood culture, UA and chest x-ray ordered, will follow and manage accordingly. Urinalysis is suggestive of UTI and I put the patient on ceftriaxone, order urine culture. Chest x-ray is normal. 12/11/2020; patient is on ceftriaxone day 2 for UTI. We will continue to follow urine culture. 12/12/2020. Day #3 of Rocephin for UTI. We will continue for 2 more days while she is here. Present UTI. 12/13/2020. Day #4 of Rocephin for UTI. Patient remains on 50% with tracheostomy. Remains unresponsive with evidence of anoxic encephalopathy unable to make needs known. 12/14/2020. Day #5 of Rocephin for UTI completed today. Remains encephalopathic unable to make needs known. Remains on 50% unable to decrease oxygen via tracheostomy. Overall prognosis remains extremely poor. 32: Continue to monitor. Stop and monitor antibiotics at this time. Continue to wean oxygen as tolerated. Wean oxygen as tolerated. Case management working on placement. 3: Continue supportive care aspiration precautions. Awaiting placement discussion. Monitor fever curve. Prognosis remains poor no evidence of neurological recovery as of today 3/4: Continue supportive care, check labs and chest xray. Still monitor off antibiotics. Monitor Sodium level 12/18: Patient remains with intermittent low grade fever, reviewed EEG from September again, consistent for Ischemic Hypoxic Encephalopathy, patient with decorticating posturing type presentation. Will discuss with envelope press operator to optimize diet so we can discontinue D5. CXR with no abnormality. Discussed extensively with the nursing staff at bedside CXR IMPRESSION: 1. No acute findings. 12/19: No clinical change 12/20: No clinical change, now off abx, monitor, discussed her medications with our pharmacist I believe that her posture and rigidity is likely from underlying anoxic encephalopathy. Continue to monitor and await placement decision. Continue aggressive suctioning. Plan discussed in detail with the nursing staff 12/21: Continue supportive care. Will give 500 cc bolus of fluid today to replace insensible losses. Tachycardia appears to be improving. Blood pressure precludes adjusting cardiac meds. Still awaiting placement from case management. Plan discussed in detail with the nursing staff 12/22. Continue support supportive care. Tracheostomy and PEG in place. Remains nonresponsive. Awaiting placement. 12/23. Continue support supportive care. Tracheostomy and PEG in place. Remains nonresponsive. Awaiting placement. Remains tachycardic. Decrease dose of lasix. Will try low dose metoprolol. Monitor BP closely 12/24. Continue support supportive care. Tracheostomy and PEG in place. Remains nonresponsive. Awaiting placement. Heart rate slightly better. Continue to monitor BP closely 12/25. Continue support supportive care. Tracheostomy and PEG in place. Remains nonresponsive. Awaiting placement. 12/26. Continue support supportive care. Tracheostomy and PEG in place. Remains nonresponsive. Awaiting placement 12/27. Continue support supportive care. Tracheostomy and PEG in place. Remains nonresponsive. Awaiting placement 12/28. Had fever yesterday. Blood culture drawn. UA - UTI - started on antibiotics. Now tracheal aspirate is growing GN rods. 12/29: Continue IV antibiotics, continue supportive care. Since admission patient has shown minimal or no chance of neurological recovery. Need 24/7 assistance. Currently on trach and PEG, nonverbal. Waiting on SNF placement. Discussed with egg caser today. 12/30: Continue IV antibiotics for UTI, continue supportive care. Pending placement 12/31: continue supportive care. continue supportive care. Pending placement 01/01: continue supportive care. Pending placement. cont Iv abx for UTI till 01/04 01/02: Continue supportive care, pending placement. Sodium level slightly elevated, will start hypotonic fluid. Continue antibiotics till 01/04 01/03; cont hypotonic fluid, increase free water with TF for hypernatremia, follow BMP. cont supportive care. pending placement. cont cefepime. recx blood 01/04: resolved hyponatremia, cont supportive care, pending placement. Last day of supplement today. 3/23: Continue supportive care, pending placement. Monitor H&H and fever curve off antibiotic. 01/06; monitor off abx, suction as needed, Continue supportive care, pending placement. 01/07: Discharge pending on placement, vitals stable. Continue supportive care 01/08: Discharge pending on placement, vitals stable. Continue supportive care. stop lasix, increase metoprolol to 25mg BID for ST. 01/09 patient resting with eyes closed. Opens eyes to tactile stimulus, has a blink reflex, does not follow simple commands, has a T-collar / G-tube Lab results reviewed, low-grade fever, 01/10 Eyes open, does not follow simple commands, no acute events overnight 01/11 no acute events overnight Waiting for placement 01/12 No acute events overnight. Patient awaiting for placement 01/13. No new issues. Awaiting placement 01/14. No new issues. Awaiting placement. 01/15. No new issues. Awaiting placement. 01/16. No new issues. Patient remain stable. Awaiting placement. Check maintenance labs. 01/17. Routine maintenance labs were ordered and are still pending. Await placement. 01/18. Patient with low-grade fever past 24-48 hrs. WBC within normal limits. Check chest x-ray, urinalysis and consider blood cultures. Continue tracheostomy care, secretion control and airway management. Patient currently with PEG and tube feedings at 60 cc an hour. Nutritional support and aspiration precautions. 01/19. Temperature 100.7 overnight. Continue to monitor closely. Continue tracheostomy care, secretion control and airway management. Patient currently with PEG and tube feedings at 60 cc an hour. Nutritional support and aspiration precautions. 01/20. Continue to monitor closely. Continue tracheostomy care, secretion control and airway management. Patient currently with PEG and tube feedings at 60 cc an hour. Nutritional support and aspiration precautions. 01/21. Afebrile overnight. Continue to monitor closely. Continue tracheostomy care, secretion control and airway management. Patient currently with PEG and tube feedings at 60 cc an hour. Nutritional support and aspiration precautions. 01/22. Continue to monitor closely. Continue tracheostomy care, secretion control and airway management. Patient currently with PEG and tube feedings at 60 cc an hour. Nutritional support and aspiration precautions. 01/23. Continue tracheostomy care, secretion control and airway management. Patient currently with PEG and tube feedings at 60 cc an hour. Nutritional support and aspiration precautions. Will get routine labs tomorrow. 01/24. Labs reviewed. No abnormalities. Continue tracheostomy care, secretion control and airway management. Patient currently with PEG and tube feedings at 60 cc an hour. Nutritional support and aspiration precautions. 01/25. Temp 100.6. More sleepy today. Will get chest xray, blood culture, urinalysis, sputum cultures. Will start on empirical abx. 01/26: Vitals noted, slightly tachycardic. Follow culture work-up, continue supportive care. 01/27: Spiking low-grade temp, negative UA, sputum culture and recent blood cultures also negative. Continue to monitor off antibiotics. Continue supportive care. Pending placement. 01/28: cont to spike low grade temp, negative UA, sputum culture and recent blood cultures also negative. Continue to monitor off antibiotics. will order fpr sinus xry. Continue supportive care. Pending placement. 01/29: Continue to follow clinically, intermittently spiking low-grade temp, all recent culture work is negative, negative UA, normal respiratory jaylan 1 tracheal aspirate. Vitals noted and currently stable. Pending placement 01/30: Clinically unchanged, continue to monitor vitals, continue supportive cares. Pending placement. Discussed plan of care with RN at the bedside. 01/31 - TODATE: cont supportive care, pending placement. monitor vitals carefully. Discussed with family at the bedside. 02/06. Patient afebrile today. Continue trach care. Secretions stable today. Culture data negative so far. Awaiting placement. 02/07. Awaiting placement awaiting family member to evaluate papers. Continue trach care secretions stable. Pending placement 02/09: Intermittent fever, ?drug related, will check cxr and also labs. No new complaints. 02/10: Patient's trach dislodged today. Nevertheless respiratory status is intact attempt to reinsert was unsuccessful will monitor discussed with nursing staff to pay close attention to the patient. Considering that this was not a planned decannulation I will start the patient on continuous pulse ox until full evaluation was done by pulmonary. 02/13/2021 Vital signs stable Unresponsive secondary to anoxic encephalopathy Awaiting placement 02/14/2021 Awaiting placement 02/15/2021 Anoxic encephalopathy Awaiting placement 02/16/2021 Anoxic encephalopathy Awaiting placement 02/17/2021 Anoxic encephalopathy awaiting placement 02/18/2021 Anoxic encephalopathy awaiting placement 02/19/2021 Anoxic encephalopathy awaiting placement 02/20/2021 Anoxic encephalopathy awaiting placement 02/21/2021 Anoxic encephalopathy awaiting placement 02/22/2021 Anoxic encephalopathy awaiting placement 02/23/2021 Anoxic encephalopathy awaiting placement 02/24/2021 Anoxic encephalopathy awaiting placement 02/25/2021 Anoxic encephalopathy waiting for placement 02/26 Awaiting placement 02/27. Awaiting placement 02/28. No change in medical condition. Awaiting placement 03/01. No medical changes noted. Awaiting placement 03/01. No medical changes noted. Awaiting placement 03/02. Had temperature more than 100 Fahrenheit. Ordered labs and chest x-ray. Labs reviewed. No pna and no leukocytosis. Procalcitonin negative. Blood cultures negative so far. Continue to monitor for now 03/03 - 03/11. No overnight events. Awaiting placement. 03/12-03/15. Awaiting placement. Continue trach care, secretion control and airway management. Gastrostomy tube care. Continue tube feedings per dietitian. Mobility protocols for pressure ulcer prophylaxis. Check routine labs 03/16/2021; Awaiting placement. Patient is on PEG tube feeding. Saturating well on room air. Patient is mildly tachycardic. Pending placement. 03/17/2021; Awaiting placement. Patient is on PEG tube feeding. Saturating well on room air. Patient is mildly tachycardic. Pending placement. 03/18/2021; awaiting placement. 03/19/2021; awaiting placement. 03/20/2021; awaiting placement. 03/21/21; awaiting placement. 03/22/2021; Awaiting placement. Patient is on PEG tube feeding. Saturating well on room air. Patient is mildly tachycardic. Pending placement. 03/23/2021; multiple social issues, awaiting LTAC placement History Interval history: 30 year old -Northern [place] female CHE 10/25/20 at 36w5d who presents with seizures in triage on 10/02/20. Pt was not able to provide history but per pt's , she presented to the hospital to return a 24 hour urine specimen for analysis. She then suddenly reported that she did not feel good. She was taken to labor and delivery and shortly after arrival, she began seizing. During this time, a code met was called because the patient became hypoxic. She was then noted to be without a pulse. Chest compressions were started immediately, and the patient was emergently taken to the operating room for delivery of the fetus. Off note, This patient has had care at [facility] with comanagement by [facility] since 11 wks complicated by ADHD, morbid obesity, generalized anxiety disorder, panic attacks, chronic narcotic use, fibromyalgia, GERD, Irritable Bowel Syndrome, Migraines, h/o endometrial ablation and ovarian vein embolization, genital herpes, insomnia, LGA fetus, nausea and vomiting, polyhydramnios, quad screen positive for Down's Syndrome, and previous x 3. She was GBS negative. History Interval history: I have seen and examined the patient at the bedside Patient's chart and medications reviewed No new events reported by nursing staff patient with history of cardiac arrest cardiac arrest and anoxic brain injury Not responding to verbal commands, awake and agitated Tracheostomy, PEG in place Patient is awaiting placement Vital signs reviewed Hospitalist Physical - Constitutional Vitals: Temp Pulse Resp BP Pulse Ox 98.6 F 102 H 18 116/75 99 03/23/21 05:07 03/23/21 05:07 03/23/21 05:07 03/23/21 05:07 03/23/21 05:07 General appearance: Present: mild distress, well-nourished, obese, other (Anoxic encephalopathy) - EENT Eyes: Present: PERRL, EOM intact ENT: other (Tracheostomy on T-piece) - Neck Neck: Present: supple, normal ROM - Respiratory Respiratory effort: normal Respiratory: bilateral: diminished, rhonchi, negative: rales, wheezing - Cardiovascular Rhythm: regular Heart Sounds: Present: S1 & S2 - Extremities Extremities: no ischemia, No edema - Abdominal General gastrointestinal: soft, non-tender, other (PEG in place) - Integumentary Integumentary: Present: clear, warm - Psychiatric Psychiatric: other (Unresponsive) - Neurologic Neurologic: moves all extremities, other (Unresponsive) HEART Score - HEART Score Age: < 45 Risk factors: 1-2 risk factors - Critical Actions Critical Actions: >7 pts:50-65% risk of adverse cardiac event. Early invasive measures Results - Labs CBC & Chem 7: 03/16/21 04:42 03/16/21 04:42 Labs: Laboratory Last Values WBC 9.4 K/mm3 (4.5-11.0) 03/16/21 04:42 RBC 5.06 M/mm3 (3.65-5.03) H 03/16/21 04:42 Hgb 12.2 gm/dl (10.1-14.3) 03/16/21 04:42 Hgb Comment See scanned result 10/04/20 Unknown Hct 37.6 % (30.3-42.9) 03/16/21 04:42 MCV 74 fl (79-97) L 03/16/21 04:42 MCH 24 pg (28-32) L 03/16/21 04:42 MCHC 33 % (30-34) 03/16/21 04:42 RDW 15.8 % (13.2-15.2) H 03/16/21 04:42 Plt Count 311 K/mm3 (140-440) 03/16/21 04:42 Lymph % (Auto) 33.5 % (13.4-35.0) 03/16/21 04:42 [place] % (Auto) 8.1 % (0.0-7.3) H 03/16/21 04:42 Eos % (Auto) 1.7 % (0.0-4.3) 03/16/21 04:42 Baso % (Auto) 0.5 % (0.0-1.8) 03/16/21 04:42 Lymph # (Auto) 3.1 K/mm3 (1.2-5.4) 03/16/21 04:42 [place] # (Auto) 0.8 K/mm3 (0.0-0.8) 03/16/21 04:42 Eos # (Auto) 0.2 K/mm3 (0.0-0.4) 03/16/21 04:42 Baso # (Auto) 0.0 K/mm3 (0.0-0.1) 03/16/21 04:42 Add Manual Diff Complete 02/09/21 10:59 Total Counted 100 02/09/21 10:59 Seg Neutrophils % 56.2 % (40.0-70.0) 03/16/21 04:42 Seg Neuts % (Manual) 58.0 % (40.0-70.0) 02/09/21 10:59 Band Neutrophils % 2.0 % 10/15/20 05:50 Lymphocytes % (Manual) 29.0 % (13.4-35.0) 02/09/21 10:59 Reactive Lymphs % (Man) 1.0 % 10/02/20 12:18 Monocytes % (Manual) 13.0 % (0.0-7.3) H 02/09/21 10:59 Eosinophils % (Manual) 1.0 % (0.0-4.3) 10/29/20 07:56 Myelocytes % 2.0 % 10/02/20 13:05 Metamyelocytes % 1.0 % 10/14/20 04:00 Nucleated RBC % Not Reportable 02/09/21 10:59 Seg Neutrophils # 5.3 K/mm3 (1.8-7.7) 03/16/21 04:42 Seg Neutrophils # Man 3.7 K/mm3 (1.8-7.7) 02/09/21 10:59 Band Neutrophils # 0.0 K/mm3 02/09/21 10:59 Lymphocytes # (Manual) 1.8 K/mm3 (1.2-5.4) 02/09/21 10:59 Abs React Lymphs (Man) 0.0 K/mm3 02/09/21 10:59 Monocytes # (Manual) 0.8 K/mm3 (0.0-0.8) 02/09/21 10:59 Eosinophils # (Manual) 0.0 K/mm3 (0.0-0.4) 02/09/21 10:59 Basophils # (Manual) 0.0 K/mm3 (0.0-0.1) 02/09/21 10:59 Metamyelocytes # 0.0 K/mm3 02/09/21 10:59 Myelocytes # 0.0 K/mm3 02/09/21 10:59 Promyelocytes # 0.0 K/mm3 02/09/21 10:59 Blast Cells # 0.0 K/mm3 02/09/21 10:59 WBC Morphology Not Reportable 02/09/21 10:59 Hypersegmented Neuts Not Reportable 02/09/21 10:59 Hyposegmented Neuts Not Reportable 02/09/21 10:59 Hypogranular Neuts Not Reportable 02/09/21 10:59 Smudge Cells Not Reportable 02/09/21 10:59 Toxic Granulation Not Reportable 02/09/21 10:59 Toxic Vacuolation Not Reportable 02/09/21 10:59 Dohle Bodies Not Reportable 02/09/21 10:59 Pelger-Huet Anomaly Not Reportable 02/09/21 10:59 Ester Rods Not Reportable 02/09/21 10:59 Platelet Estimate Consistent w auto 02/09/21 10:59 Clumped Platelets Not Reportable 02/09/21 10:59 Plt Clumps, EDTA Not Reportable 02/09/21 10:59 Large Platelets Few 02/09/21 10:59 Giant Platelets Not Reportable 02/09/21 10:59 Platelet Satelliting Not Reportable 02/09/21 10:59 Plt Morphology Comment Not Reportable 02/09/21 10:59 RBC Morphology Not Reportable 02/09/21 10:59 Dimorphic RBCs Not Reportable 02/09/21 10:59 Polychromasia Not Reportable 02/09/21 10:59 Hypochromasia 1+ 02/09/21 10:59 Poikilocytosis Not Reportable 02/09/21 10:59 Anisocytosis Not Reportable 02/09/21 10:59 Microcytosis Not Reportable 02/09/21 10:59 Macrocytosis Not Reportable 02/09/21 10:59 Spherocytes Not Reportable 02/09/21 10:59 Pappenheimer Bodies Not Reportable 02/09/21 10:59 Sickle Cells Not Reportable 02/09/21 10:59 Target Cells Not Reportable 02/09/21 10:59 Tear Drop Cells Not Reportable 02/09/21 10:59 Ovalocytes Not Reportable 02/09/21 10:59 Stomatocytes Few 10/14/20 04:00 Helmet Cells Not Reportable 02/09/21 10:59 Burk-Roe Bodies Not Reportable 02/09/21 10:59 [place] Rings Not Reportable 02/09/21 10:59 [place] Cells Not Reportable 02/09/21 10:59 Bite Cells Not Reportable 02/09/21 10:59 Crenated Cell Not Reportable 02/09/21 10:59 Elliptocytes Not Reportable 02/09/21 10:59 Acanthocytes (Spur) Not Reportable 02/09/21 10:59 Rouleaux Not Reportable 02/09/21 10:59 Hemoglobin C Crystals Not Reportable 02/09/21 10:59 Schistocytes Not Reportable 02/09/21 10:59 Malaria parasites Not Reportable 02/09/21 10:59 Sickle Cell Solubility See scanned result 10/04/20 Unknown Hemoglobin A See scanned result 10/04/20 Unknown Hemoglobin A2 See scanned result 10/04/20 Unknown Hemoglobin A2 Prime See scanned result 10/04/20 Unknown Hemoglobin C See scanned result 10/04/20 Unknown Hemoglobin D See scanned result 10/04/20 Unknown Hemoglobin E See scanned result 10/04/20 Unknown Hgb F Diffential Stain See scanned result 10/04/20 Unknown Hemoglobin F Quant See scanned result 10/04/20 Unknown Hemoglobin G See scanned result 10/04/20 Unknown Hemoglobin S See scanned result 10/04/20 Unknown Hemoglobin [place] See scanned result 10/04/20 Unknown Hemoglobin [place] See scanned result 10/04/20 Unknown Hemoglobin Analilia See scanned result 10/04/20 Unknown Variant Hemoglobin See scanned result 10/04/20 Unknown Abnorm Hgb IEF Confirm See scanned result 10/04/20 Unknown Hemoglobin Interpret See scanned result 10/04/20 Unknown Hemoglobinopathy Note See scanned result 10/04/20 Unknown Sharad Bodies Not Reportable 02/09/21 10:59 Hem Pathologist Commnt No 02/09/21 10:59 PT 13.6 Sec. (12.2-14.9) 10/21/20 13:54 INR 1.06 (0.87-1.13) 10/21/20 13:54 APTT 31.6 Sec. (24.2-36.6) 10/03/20 00:40 Fibrinogen 336 mg/dl (211-480) 10/04/20 10:00 D-Dimer 1974.47 ng/mlDDU (0-234) H 11/11/20 13:50 ABG pH 7.459 pH Units (7.350-7.450) H 10/26/20 10:30 POC ABG pCO2 20.7 mmHg (32.0-48.0) L 10/13/20 07:18 ABG pCO2 32.4 mm Hg 10/26/20 10:30 POC ABG pO2 137.9 mmHg (83-108) H 10/13/20 07:18 ABG pO2 112.2 mm Hg (80.0-90.0) H 10/26/20 10:30 POC ABG HCO3 14.8 10/13/20 07:18 ABG HCO3 22.5 mmol/L (20.0-26.0) 10/26/20 10:30 ABG O2 Saturation 98.2 % (95.0-99.0) 10/26/20 10:30 ABG O2 Content 18.5 (0.0-44) 10/26/20 10:30 POC ABG Base Excess -6.9 10/13/20 07:18 ABG Base Excess -0.6 mmol/L (-2.0-3.0) 10/26/20 10:30 ABG Hemoglobin 13.5 gm/dl (12.0-16.0) 10/26/20 10:30 ABG Oxyhemoglobin 98.3 (94-98) H 10/13/20 07:18 ABG Carboxyhemoglobin 1.3 % (0.0-5.0) 10/26/20 10:30 ABG Methemoglobin 0.5 % (0.0-1.5) 10/26/20 10:30 ABG Sodium 135.9 mmol/L (136.0-145.0) L 10/13/20 07:18 ABG Potassium 3.7 mmol/L (3.40-4.50) 10/13/20 07:18 ABG Chloride 111.0 mmol/L (98-107) H 10/13/20 07:18 ABG Glucose 109 mg/dL (65-95) H 10/13/20 07:18 VBG pH 6.949 (7.320-7.420) L* 10/02/20 Unknown Oxyhemoglobin 96.5 % (95.0-99.0) 10/26/20 10:30 Carboxyhemoglobin 0.3 (0.5-1.5) L 10/13/20 07:18 FiO2 25 % 10/26/20 10:30 Sodium 140 mmol/L (137-145) 03/16/21 04:42 Potassium 3.9 mmol/L (3.6-5.0) 03/16/21 04:42 Chloride 103.1 mmol/L (98-107) 03/16/21 04:42 Carbon Dioxide 25 mmol/L (22-30) 03/16/21 04:42 Anion Gap 16 mmol/L 03/16/21 04:42 BUN 12 mg/dL (7-17) 03/16/21 04:42 Creatinine 0.5 mg/dL (0.6-1.2) L 03/16/21 04:42 Estimated GFR > 60 ml/min 03/16/21 04:42 BUN/Creatinine Ratio 24 % 03/16/21 04:42 Glucose 95 mg/dL (65-100) 03/16/21 04:42 POC Glucose 102 mg/dL (70-105) 03/22/21 21:54 Random Insulin 43.2 uIU/mL (<=19.6) H 11/02/20 19:19 Proinsulin See scanned result 11/02/20 19:19 C-Peptide 6.23 ng/mL (0.80-3.85) H 11/02/20 19:19 Lactic Acid 1.90 mmol/L (0.7-2.0) 10/04/20 22:00 Uric Acid 7.5 mg/dL (3.5-7.6) 10/02/20 13:05 Calcium 9.6 mg/dL (8.4-10.2) 03/16/21 04:42 Ionized Calcium 4.4 mg/dL (4.8-5.6) L 10/07/20 21:00 Phosphorus 4.60 mg/dL (2.5-4.5) H 11/13/20 10:05 Magnesium 2.10 mg/dL (1.7-2.3) 11/13/20 10:05 Total Bilirubin 0.80 mg/dL (0.1-1.2) 03/04/21 04:46 AST 51 units/L (5-40) H 03/04/21 04:46 ALT 53 units/L (7-56) 03/04/21 04:46 Alkaline Phosphatase 117 units/L (35-129) 03/04/21 04:46 Lactate Dehydrogenase 769 units/L (91-180) H 10/02/20 13:05 C-Reactive Protein 0.70 mg/dL (0.00-1.30) 11/11/20 13:50 NT-Pro-B Natriuret Pep 2788 pg/mL (0-450) H 10/04/20 10:00 Total Protein 8.4 g/dL (6.3-8.2) H 03/04/21 04:46 Albumin 4.2 g/dL (3.9-5) 03/04/21 04:46 Albumin/Globulin Ratio 1.0 % 03/04/21 04:46 Procalcitonin < 0.05 ng/mL (<0.15) 03/02/21 02:30 Arterial Blood Glucose 109 mg/dL (65-95) H 10/13/20 07:18 Arterial Blood Ionized Calcium 4.6 mg/dL (4.6-5.3) 10/13/20 07:18 Urine Color Yellow (Yellow) 01/25/21 09:51 Urine Turbidity Cloudy (Clear) 01/25/21 09:51 Urine pH 7.0 (5.0-7.0) 01/25/21 09:51 Ur Specific [place] 1.011 (1.003-1.030) 01/25/21 09:51 Urine Protein <15 mg/dl mg/dL (Negative) 01/25/21 09:51 Urine Glucose (UA) Neg mg/dL (Negative) 01/25/21 09:51 Urine Ketones Neg mg/dL (Negative) 01/25/21 09:51 Urine Blood Neg (Negative) 01/25/21 09:51 Urine Nitrite Neg (Negative) 01/25/21 09:51 Urine Bilirubin Neg (Negative) 01/25/21 09:51 Urine Urobilinogen < 2.0 mg/dL (<2.0) 01/25/21 09:51 Ur Leukocyte Esterase Neg (Negative) 01/25/21 09:51 Urine WBC (Auto) 6.0 /HPF (0.0-6.0) 01/25/21 09:51 Urine RBC (Auto) 3.0 /HPF (0.0-6.0) 01/25/21 09:51 U Epithel Cells (Auto) < 1.0 /HPF (0-13.0) 01/25/21 09:51 Urine Bacteria (Auto) 1+ /HPF (Negative) 01/18/21 08:47 Urine WBC Clumps 3+ /HPF 11/11/20 13:50 Calcium Oxalate Crystal Few 11/11/20 13:50 Urine Mucus Few /HPF 01/25/21 09:51 Urine Yeast (Budding) 2+ /HPF 01/25/21 09:51 Vancomycin Trough 12.6 ug/mL (5.0-20.0) 10/21/20 13:54 Random Vancomycin 10.7 ug/mL (0-40.0) 10/16/20 13:09 Phenytoin 5.7 ug/mL (10.0-20.0) L 10/13/20 07:00 C. difficile Tox (PCR) Positive (Negative) 10/16/20 10:22 Coronavirus (PCR) Negative (Negative) 10/08/20 14:15 Blood Type O POSITIVE 10/02/20 12:50 Antibody Screen Negative 10/02/20 12:50 Crossmatch See Detail 10/02/20 12:50 - Diagnostic Impressions Diagnostic Impressions: Echocardiogram 10/03/20 13:42 Transthoracic Echocardiogram Indication: S/P Cardiac Arrest R/O Cardiomyopathy BP: 133/71 Conclusions *Global left ventricular systolic function is normal. *The estimated ejection fraction is 60-65%. *There is trace of mitral regurgitation. *The right 0heart chambers are both slightly dilated. *There is mild tricuspid regurgitation. *There is mild-moderate pulmonary hypertension. *The right ventricular systolic pressure is calculated at 44 mmHg. *The study quality is technically difficult. Findings Procedure Info: The study quality is technically difficult. The study is technically limited due to patient body habitus. The study was technically limited due to the patient's inability to lay in the left lateral decubitus position. Left Ventricle: The left ventricular chamber size is normal. There is no left ventricular hypertrophy. Global left ventricular systolic function is normal. The estimated ejection fraction is 60-65%. Left Atrium: The left atrial chamber size is normal. Right Ventricle: The right ventricle is slightly dilated. Right Atrium: The right atrium is mildly dilated. Aortic Valve: The aortic valve leaflets are mildly thickened. There is no evidence of aortic regurgitation. There is no evidence of aortic stenosis. Mitral Valve: The mitral valve leaflets are mildly thickened. There is trace of mitral regurgitation. There is no evidence of mitral stenosis. Tricuspid Valve: There is mild tricuspid regurgitation. The right ventricular systolic pressure is calculated at 44 mmHg. There is evidence of mild pulmonary hypertension. Pulmonic Valve: There is trace pulmonic regurgitation. Pericardium: There is no pericardial effusion. Aorta: There is no dilatation of the ascending aorta. There is no dilatation of the aortic root. Venous: The inferior vena cava is dilated. Measurements Chambers 2D Name Value Normal Range IVSd (2D) 1 cm (0.6 - 1.1) LVPWd (2D) 1.01 cm (0.6 - 1.1) LVIDd (2D) 4.58 cm (3.7 - 5.6) LVIDs (2D) 3.17 cm (2 - 3.8) LV FS (2D) 30.93 % - EF Teichholz (2D) 58.66 % - Ao root diameter (2D) 2.94 cm (2 - 3.7) Volumes/Mass Name Value Normal Range LA ESV SP 4CH (A/L) 72.82 ml - LA ESV SP 2CH (A/L) 66.86 ml - LA ESV BP (A/L) 74.49 ml - LA ESV SP 4CH (MOD) 71.03 ml - LA ESV SP 2CH (MOD) 64.3 ml - LV EDV SP 4CH (MOD) 98.82 ml - LV ESV SP 4CH (MOD) 24.8 ml - EF SP 4CH (MOD) 74.9 % - LV EDV SP 2CH (MOD) 86.1 ml - LV ESV SP 2CH (MOD) 36.93 ml - EF SP 2CH (MOD) 57.11 % - LV EDV BP 94.4 ml - LV ESV BP 32.66 ml - BP EF (MOD) 65.4 % - Diastolic/Systolic Function Name Value Normal Range MV E-wave Vmax 1.04 m/sec - MV deceleration time 160.46 msec - MV A-wave Vmax 0.92 m/sec - MV E:A ratio 1.14 ratio - Aortic Valve Name Value Normal Range AV Vmax 2.12 m/sec - AV VTI 22.37 cm - AV peak gradient 17.95 mmHg - AV mean gradient 7.29 mmHg - LVOT diameter 2.01 cm - LVOT Vmax 1.8 m/sec - LVOT VTI 27.17 cm - LVOT peak gradient 12.91 mmHg - LVOT mean gradient 6.83 mmHg - SV LVOT 86.42 ml - ANITA (continuity Vmax) 2.7 cm2 - ANITA (continuity VTI) 3.86 cm2 - Ascending Ao 3.18 cm - Tricuspid Valve Name Value Normal Range TV E-wave Vmax 0.88 m/sec - TR Vmax 3.01 m/sec - TR peak gradient 36.27 mmHg - RAP 8 mmHg - RVSP 44 mmHg - IVC diameter 2.65 cm (1.2 - 2.3) Pulmonic Valve/Qp:Qs Name Value Normal Range PV Vmax 1.22 m/sec - PV peak gradient 5.91 mmHg - RVOT Vmax 0.87 m/sec - RVOT VTI 13.32 cm - RVOT peak gradient 3 mmHg - PV acceleration time 110.37 msec - [place]/IV: Voiding Method Incontinent IV Catheter Type [Right Foot] INT / Saline Lock IV Catheter Type [Left Forearm Peripheral IV ] IV Catheter Type [Left Wrist] INT / Saline Lock IV Catheter Type [Right Hand] INT / Saline Lock IV Catheter Type [Right INT / Saline Lock Antecubital] IV Catheter Type [Right Upper Mid-line arm] IV Catheter Type [Left Triple Lumen Cath Internal Jugular] IV Catheter Type [Left Hand] Peripheral IV IV Catheter Type [Left Peripheral IV Antecubital] Active Medications - Current Medications Current Medications: Generic Name Dose Route Start Last Admin Trade Name Freq PRN Reason Stop Dose Admin Acetaminophen 650 mg 10/05/20 16:34 03/22/21 17:55 Acetaminophen 325 Mg/10.15 Ml Oral Liqd Unit Dose FEEDTUBE 650 mg Q6H PRN Administration Non Cardiac Pain or Temp>100.5 Albuterol 2.5 mg 11/05/20 13:03 11/06/20 13:04 Albuterol 2.5 Mg/3 Ml Nebu IH 2.5 mg Q4HRT PRN Administration Shortness Of Breath Alprazolam 0.25 mg 01/20/21 13:33 03/22/21 17:56 Alprazolam 0.25 Mg Tab PO 0.25 mg Q8H PRN Administration Anxiety Lipase/Protease/Amylase 1 each 10/05/20 11:09 Lipase 10,500/Protease 25,000/Amylase 43,750 (Units) Dr Barakat FEEDTUBE PRN PRN For Clogged Feeding Tube Enoxaparin Sodium 40 mg 10/22/20 10:00 03/22/21 09:19 Enoxaparin 40 Mg/0.4 Ml Inj SUB-Q 40 mg DAILY ERINN Administration Protocol Famotidine 20 mg 10/07/20 10:00 03/22/21 22:16 Famotidine 20 Mg Tab PO 20 mg BID ERINN Administration Hydrophilic Ointment 1 applic 01/03/21 13:00 02/16/21 09:56 Lip Therapy Vaseline TP 1 applic DIRECT PRN Administration Dry Lips Dextrose 1,000 mls @ 30 mls/hr 01/03/21 12:00 02/11/21 18:44 D5w IV 30 mls/hr DIRECT ERINN Administration Metoprolol Tartrate 50 mg 02/02/21 16:01 03/22/21 22:16 Metoprolol Tartrate 25 Mg Tab PO 50 mg BID ERINN Administration Morphine Sulfate 2 mg 01/20/21 13:33 Morphine 2 Mg/1 Ml Inj IV Q4H PRN Pain, Moderate (4-6) Ondansetron HCl 4 mg 02/10/21 11:38 02/10/21 13:18 Ondansetron 4 Mg/2 Ml Inj IV 4 mg Q4H PRN Administration Nausea And Vomiting Simple Syrup 15 ml 10/05/20 11:09 Simple Syrup 15 Ml FEEDTUBE PRN PRN Hypoglycemia Simple Syrup 30 ml 10/05/20 11:09 03/23/21 06:11 Simple Syrup 15 Ml FEEDTUBE 30 ml PRN PRN Administration Hypoglycemia Sodium Bicarbonate 325 mg 10/05/20 11:09 12/16/20 08:19 Sodium Bicarbonate 325 Mg Tab FEEDTUBE 325 mg PRN PRN Administration For Clogged Feeding Tube Nutrition/Malnutrition Assess - Dietary Evaluation Nutrition/Malnutrition Findings: Nutrition Notes Start: 10/04/20 11:13 Freq: Status: Active Protocol: Document 03/17/21 11:56 MK (Rec: 03/17/21 11:59 MK [id number]) Nutrition Notes Initial or Follow up Reassessment Other Pertinent Diagnosis s/p cardiac arrest x 2, anoxic brain injury Current Diet Promote at 65ml/hr Labs/Tests Reviewed Pertinent Medications Reviewed Height 5 ft 8 in Weight 91.2 kg [place] Body Weight (kg) 63.63 BMI 30.5 Weight Status Obese Subjective/Other Information FU for TF tolerance. Promote is being tolerated at 65 ml/hr . Percent of energy/protein needs met: 100%/100% Burn Absent Trauma Absent GI Symptoms None Difficulty In Swallowing,Chewing Current % PO Negligible Minimum of two criteria Yes Fluid Accumulation Moderate to Severe (severe) #2 Nutrition Diagnosis Malnutrition As Evidenced by Signs and Symptoms no recent wt loss, no edema noted Diagnosis Progress(for reassessment Resolved documentation) #1 Nutrition Diagnosis Inadequate oral intake Diagnosis Progress(for reassessment Continues documentation) Is patient on ventilator? No Is Patient Ambulatory and/or Out of Bed No REE-([facility] [place]-confined to bed) 2005.580 Kcal/Kg value to use for calculation 16 Approximate Energy Requirements Using 1459 kcal/Kg Calculation Used for Recommendations Kcal/kg Additional Notes PRO needs: 64-80g (.8-1.0 g/kg AdBW 81kg) Fluid needs: 1 mL/kcal or per MD Nutrition Intervention Change Diet Order: Continue Nutrition Support: Promote at 65 mL/hr Flush 100 ml q4h Kcal 1,560 Protein (gm) 98 Fluid (mL) 1,309 Goal #1 TF tolerance Goal #2 TF to meet at least 75% estimated energy and protein needs. Anticipated Discharge Needs: Promote at 65 ml/hr Flush 100 ml q4h Follow-Up By: 03/24/21 Additional Comments F/U for stable weights and TF tolerance
[2021-03-23] MEDS: ALPRAZolam 0.25 MG TAB PO PRN ×2 (09:43→17:40)
[2021-03-23] MEDS: ACETAMINOPHEN 325 MG/10.15 ML ORAL LIQD UNIT DOSE FEEDTUBE PRN (09:43)
[2021-03-23] MEDS: METOPROLOL TARTRATE 25 MG TAB PO SCH ×2 (09:43→21:41)
[2021-03-23] MEDS: FAMOTIDINE 20 MG TAB PO SCH ×2 (09:44→21:41)
[2021-03-23] MEDS: ENOXAPARIN 40 MG/0.4 ML INJ SUB-Q SCH (09:44)
[2021-03-24] MEDS: FAMOTIDINE 20 MG TAB PO SCH ×2 (09:24→22:09)
[2021-03-24] MEDS: ALPRAZolam 0.25 MG TAB PO PRN ×2 (09:24→22:09)
[2021-03-24] MEDS: ACETAMINOPHEN 325 MG/10.15 ML ORAL LIQD UNIT DOSE FEEDTUBE PRN (09:24)
[2021-03-24] MEDS: METOPROLOL TARTRATE 25 MG TAB PO SCH ×2 (09:24→22:09)
[2021-03-24] MEDS: ENOXAPARIN 40 MG/0.4 ML INJ SUB-Q SCH (09:24)
--- NOTE | 2021-03-24 10:15 | Progress Note ---
Assessment and Plan Assessment and plan: --Acute hypoxic respiratory failure: Tracheostomy on T-piece , saturating well Supportive care, Pulmonary critical following --s/p Cardiac arrest x2 on admission and on 10/07 ACLS protocol followed by revival, Echo showed preserved Ef --Anoxic brain injury, Developed following cardiac arrest, patient does not follow commands Restless and agitated continue supportive care --Shock-resolved now awaiting placement, s/p pressor support --DIC (disseminated intravascular coagulation) vs HELLP syndrome , Resolved --Possible Eclampsia/HELLP Syndrome, Resolved --ADOLPH-resolved, Stable --Sepsis 2/2 UTI s/p cefepime to cover possible pseudomonas as sputum is also growing GN rods till 01/04/21 Previous urine culture grew pansensitive ecoli Blood cultures from 12/27-no growth --Hypernatremia, resolved, cont free water with TF --DVT prophylaxis Patient presented with DIC No anticoagulants Overall prognosis extremely poor. DC planning per case management, awaiting placement Multiple social issues Daily clinical course 10/02/21 11:30: Pt brought to L&D triage for evaluation of possible labor. Pt accompanied by her spouse. Pt spouse poor historian; unable to obtain history- allergies at this time. Pt taken from registration to triage area via WC. Pt unresponsive, ac tively seizing with snorous respirations. laborer carpentry dock, Kassy, called and requesting assistance. 11:35: Multiple staff at bedside. Pt 02 sat 67% on nonrebreather, unable to read BP at this time. Yifan Theodore CRNA, at bedside for intubation and assistance with IV insertion. INT attempt by multiple RNs unsuccessful at this time. 11:42: Pt being bagged by KORIN, 02% 79%. No pulse palpated, compressions started at this time; bharati young called and Dr. Newberry preparing OR for emergent c/s. 11:44: Continued compressions on stretcher while transporting pt to OR 1. Pt being bagged with jaw thrust manuever in place by KORIN Strigner student. 11:45: Arrival to OR 1. Dr. Newberry and Dr. Portillo present for emergent c/s. Code team arrived for continued care. patient revived and c/s done Patient has been bleeding from C/s site followed by supracervical hysterectomy for severe bleeding Patient transfused multiple units of PRBC, Patient in DIC. Transferred to the ICU 12/19. Patient seen and examined at bedside this morning. Patient is nonresponsive and mechanically ventilated. On pressors. Labs reviewed-has leukocytosis, anemia, thrombocytopenia, ADOLPH and lactic acidosis. Started on IV antibiotics to cover possible sepsis secondary to DIC. Hematology oncology recommendations appreciated-needs additional cryoprecipitate and FFP. Monitor D-dimer, fibrinogen and frequent labs. Nephrology consulted for lactic acidosis and ADOLPH. 10/04. Remains mechanically ventilated. Storden antibiotics. Labs shows improved acidosis - lactic acid 3.5. Hb drop noted. Getting transfused 2 units PRBCs. Platelet count is ~40k. Continue to monitor labs closely. Critical care team on board. 10/05; xray reviewed, concerning for multifocal infilrate, likely underlying Pneumonia, will add ID consult to assist with management of this critically ill patient, start tube feed, closely monitor renal system 10/06: Resumed care, remains on mechanical ventilation. No active bleeding, H&H stable. Continue to monitor CBC and BMP. Continue IV antibiotic for underlying pneumonia. Follow critical care and ID recommendation. 10/07: Remains on mechanical ventilation. No active bleeding, H&H stable. Critical care following, wean off ventilation as tolerated. 10/08: Patient had another cardiac arrest last night. Remains on mechanical ventilation, update family. Continue supportive care -poor prognosis 10/09: Called patient mother and discussed about patient care and management. Answered all question to best of my knowledge and family satisfaction. Patient remains on mechanical ventilation, cardiac arrest x2 so far. Critically sick, poor prognosis 10/10: remains on mechanical ventilation. h/h stable, no active bleeding. monitor CBC/BMP 10/11: WBC trended up with diarrhea, started on vancomycin po. remains on MV, off pressor, tolerating TF 10/12: remains on MV, off pressor, tolerating TF. called family for update but unable to reach, could not leave message as it was full. cont supportive care, wean off vent as tolerated. 10/13/2020; patient is on mechanical ventilation, tolerating tube feeding. Patient has labored breathing. Neuro was consulted and recommend MRI. Patient is on Precedex. Rectal tube in place. 10/14/2020; patient is on mechanical ventilation, Precedex. Patient had fever and blood culture ordered. Patient is on IV vancomycin per ID recommendation. Neuro consulted and recommend MRI. Continue to monitor. Prognosis is guarded. 10/15/2020; patient is on mechanical ventilation, Precedex. Patient had fever and blood culture ordered. Patient is on IV vancomycin per ID recommendation. Neuro consulted and recommend MRI. Continue to monitor. Prognosis is guarded. 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 12/06/20; anoxic brain injury. Awaiting placement. 12/07/2020; anoxic brain injury, awaiting placement. 12/09/2020; anoxic brain injury, awaiting placement. 12/10/2020; patient had episodes of fever overnight. CBC, BMP, blood culture, UA and chest x-ray ordered, will follow and manage accordingly. Urinalysis is suggestive of UTI and I put the patient on ceftriaxone, order urine culture. Chest x-ray is normal. 12/11/2020; patient is on ceftriaxone day 2 for UTI. We will continue to follow urine culture. 12/12/2020. Day #3 of Rocephin for UTI. We will continue for 2 more days while she is here. Present UTI. 12/13/2020. Day #4 of Rocephin for UTI. Patient remains on 50% with tracheostomy. Remains unresponsive with evidence of anoxic encephalopathy unable to make needs known. 12/14/2020. Day #5 of Rocephin for UTI completed today. Remains encephalopathic unable to make needs known. Remains on 50% unable to decrease oxygen via tracheostomy. Overall prognosis remains extremely poor. 32: Continue to monitor. Stop and monitor antibiotics at this time. Continue to wean oxygen as tolerated. Wean oxygen as tolerated. Case management working on placement. 12/16: Continue supportive care aspiration precautions. Awaiting placement discussion. Monitor fever curve. Prognosis remains poor no evidence of neurological recovery as of today 3: Continue supportive care, check labs and chest xray. Still monitor off a ntibiotics. Monitor Sodium level 12/18: Patient remains with intermittent low grade fever, reviewed EEG from September again, consistent for Ischemic Hypoxic Encephalopathy, patient with decorticating posturing type presentation. Will discuss with coin purse framer to optimize diet so we can discontinue D5. CXR with no abnormality. Discussed extensively with the nursing staff at bedside CXR IMPRESSION: 1. No acute findings. 36: No clinical change 12/20: No clinical change, now off abx, monitor, discussed her medications with our pharmacist I believe that her posture and rigidity is likely from underlying anoxic encephalopathy. Continue to monitor and await placement decision. Continue aggressive suctioning. Plan discussed in detail with the nursing staff 12/21: Continue supportive care. Will give 500 cc bolus of fluid today to replace insensible losses. Tachycardia appears to be improving. Blood pressure precludes adjusting cardiac meds. Still awaiting placement from case management. Plan discussed in detail with the nursing staff 12/22. Continue support supportive care. Tracheostomy and PEG in place. Remains nonresponsive. Awaiting placement. 12/23. Continue support supportive care. Tracheostomy and PEG in place. Remains nonresponsive. Awaiting placement. Remains tachycardic. Decrease dose of lasix. Will try low dose metoprolol. Monitor BP closely 12/24. Continue support supportive care. Tracheostomy and PEG in place. Remains nonresponsive. Awaiting placement. Heart rate slightly better. Continue to monitor BP closely 12/25. Continue support supportive care. Tracheostomy and PEG in place. Remains nonresponsive. Awaiting placement. 12/26. Continue support supportive care. Tracheostomy and PEG in place. Remains nonresponsive. Awaiting placement 12/27. Continue support supportive care. Tracheostomy and PEG in place. Remains nonresponsive. Awaiting placement 12/28. Had fever yesterday. Blood culture drawn. UA - UTI - started on antibiotics. Now tracheal aspirate is growing GN rods. 12/29: Continue IV antibiotics, continue supportive care. Since admission patient has shown minimal or no chance of neurological recovery. Need 24/7 assistance. Currently on trach and PEG, nonverbal. Waiting on SNF placement. Discussed with cyanide case hardener today. 12/30: Continue IV antibiotics for UTI, continue supportive care. Pending placement 12/31: continue supportive care. continue supportive care. Pending placement 01/01: continue supportive care. Pending placement. cont Iv abx for UTI till 01/04 01/02: Continue supportive care, pending placement. Sodium level slightly elevated, will start hypotonic fluid. Continue antibiotics till 01/04 01/03; cont hypotonic fluid, increase free water with TF for hypernatremia, follow BMP. cont supportive care. pending placement. cont cefepime. recx blood 01/04: resolved hyponatremia, cont supportive care, pending placement. Last day of supplement today. 01/05: Continue supportive care, pending placement. Monitor H&H and fever curve off antibiotic. 01/06; monitor off abx, suction as needed, Continue supportive care, pending placement. 01/07: Discharge pending on placement, vitals stable. Continue supportive care 01/08: Discharge pending on placement, vitals stable. Continue supportive care. stop lasix, increase metoprolol to 25mg BID for ST. 01/09 patient resting with eyes closed. Opens eyes to tactile stimulus, has a blink reflex, does not follow simple commands, has a T-collar / G-tube Lab results reviewed, low-grade fever, 01/10 Eyes open, does not follow simple commands, no acute events overnight 01/11 no acute events overnight Waiting for placement 01/12 No acute events overnight. Patient awaiting for placement 01/13. No new issues. Awaiting placement 01/14. No new issues. Awaiting placement. 01/15. No new issues. Awaiting placement. 01/16. No new issues. Patient remain stable. Awaiting placement. Check maintenance labs. 01/17. Routine maintenance labs were ordered and are still pending. Await placement. 01/18. Patient with low-grade fever past 24-48 hrs. WBC within normal limits. Check chest x-ray, urinalysis and consider blood cultures. Continue [facility] heostomy care, secretion control and airway management. Patient currently with PEG and tube feedings at 60 cc an hour. Nutritional support and aspiration precautions. 01/19. Temperature 100.7 overnight. Continue to monitor closely. Continue tracheostomy care, secretion control and airway management. Patient currently with PEG and tube feedings at 60 cc an hour. Nutritional support and aspiration precautions. 01/20. Continue to monitor closely. Continue tracheostomy care, secretion contro l and airway management. Patient currently with PEG and tube feedings at 60 cc an hour. Nutritional support and aspiration precautions. 01/21. Afebrile overnight. Continue to monitor closely. Continue tracheostomy care, secretion control and airway management. Patient currently with PEG and tube feedings at 60 cc an hour. Nutritional support and aspiration precautions. 01/22. Continue to monitor closely. Continue tracheostomy care, secretion control and airway management. Patient currently with PEG and tube feedings at 60 cc an hour. Nutritional support and aspiration precautions. 01/23. Continue tracheostomy care, secretion control and airway management. Patient currently with PEG and tube feedings at 60 cc an hour. Nutritional support and aspiration precautions. Will get routine labs tomorrow. 01/24. Labs reviewed. No abnormalities. Continue tracheostomy care, secretion control and airway management. Patient currently with PEG and tube feedings at 60 cc an hour. Nutritional support and aspiration precautions. 01/25. Temp 100.6. More sleepy today. Will get chest xray, blood culture, urinalysis, sputum cultures. Will start on empirical abx. 01/26: Vitals noted, slightly tachycardic. Follow culture work-up, continue supportive care. 01/27: Spiking low-grade temp, negative UA, sputum culture and recent blood cultures also negative. Continue to monitor off antibiotics. Continue supportive care. Pending placement. 01/28: cont to spike low grade temp, negative UA, sputum culture and recent blood cultures also negative. Continue to monitor off antibiotics. will order fpr sinus xry. Continue supportive care. Pending placement. 01/29: Continue to follow clinically, intermittently spiking low-grade temp, all recent culture work is negative, negative UA, normal respiratory jaylan 1 tracheal aspirate. Vitals noted and currently stable. Pending placement 01/30: Clinically unchanged, continue to monitor vitals, continue supportive cares. Pending placement. Discussed plan of care with RN at the bedside. 01/31 - TODATE: cont supportive care, pending placement. monitor vitals carefully. Discussed with family at the bedside. 02/06. Patient afebrile today. Continue trach care. Secretions stable today. Culture data negative so far. Awaiting placement. 02/07. Awaiting placement awaiting family member to evaluate papers. Continue trach care secretions stable. Pending placement 02/09: Intermittent fever, ?drug related, will check cxr and also labs. No new complaints. 02/10: Patient's trach dislodged today. Nevertheless respiratory status is intact attempt to reinsert was unsuccessful will monitor discussed with nursing staff to pay close attention to the patient. Considering that this was not a planned decannulation I will start the patient on continuous pulse ox until full evaluation was done by pulmonary. 02/13/2021 Vital signs stable Unresponsive secondary to anoxic encephalopathy Awaiting placement 02/14/2021 Awaiting placement 02/15/2021 Anoxic encephalopathy Awaiting placement 02/16/2021 Anoxic encephalopathy Awaiting placement 02/17/2021 Anoxic encephalopathy awaiting placement 02/18/2021 Anoxic encephalopathy awaiting placement 02/19/2021 Anoxic encephalopathy awaiting placement 02/20/2021 Anoxic encephalopathy awaiting placement 02/21/2021 Anoxic encephalopathy awaiting placement 02/22/2021 Anoxic encephalopathy awaiting placement 02/23/2021 Anoxic encephalopathy awaiting placement 02/24/2021 Anoxic encephalopathy awaiting placement 02/25/2021 Anoxic encephalopathy waiting for placement 02/26 Awaiting placement 02/27. Awaiting placement 02/28. No change in medical condition. Awaiting placement 03/01. No medical changes noted. Awaiting placement 03/01. No medical changes noted. Awaiting placement 03/02. Had temperature more than 100 Fahrenheit. Ordered labs and chest x-ray. Labs reviewed. No pna and no leukocytosis. Procalcitonin negative. Blood cultures negative so far. Continue to monitor for now 03/03 - 03/11. No overnight events. Awaiting placement. 03/12-03/15. Awaiting placement. Continue trach care, secretion control and airway management. Gastrostomy tube care. Continue tube feedings per dietitian. Mobility protocols for pressure ulcer prophylaxis. Check routine labs 03/16/2021; Awaiting placement. Patient is on PEG tube feeding. Saturating well on room air. Patient is mildly tachycardic. Pending placement. 03/17/2021; Awaiting placement. Patient is on PEG tube feeding. Saturating well on room air. Patient is mildly tachycardic. Pending placement. 03/18/2021; awaiting placement. 03/19/2021; awaiting placement. 03/20/2021; awaiting placement. 03/21/21; awaiting placement. 03/22/2021; Awaiting placement. Patient is on PEG tube feeding. Saturating well on room air. Patient is mildly tachycardic. Pending placement. 03/23/2021; multiple social issues, awaiting LTAC placement 03/24/2021; pending placement. Clinically no change History Interval history: 30 year old -[place] female CHE 10/25/20 at 36w5d who presents with seizures in triage on 10/02/20. Pt was not able to provide history but per pt's , she presented to the hospital to return a 24 hour urine specimen for analysis. She then suddenly reported that she did not feel good. She was taken to labor and delivery and shortly after arrival, she began seizing. During this time, a code met was called because the patient became hypoxic. She was then noted to be without a pulse. Chest compressions were started immediately, and the patient was emergently taken to the operating room for delivery of the fetus. Off note, This patient has had care at [facility] with comanagement by [facility] since 11 wks complicated by ADHD, morbid obesity, generalized anxiety disorder, panic attacks, chronic narcotic use, fibromyalgia, GERD, Irritable Bowel Syndrome, Migraines, h/o endometrial ablation and ovarian vein embolization, genital herpes, insomnia, LGA fetus, nausea and vomiting, polyhydramnios, quad screen positive for Down's Syndrome, and previous x 3. She was GBS negative. History Interval history: I have seen and examined the patient at the bedside this morning Patient's chart and medications reviewed Clinically no change, patient is noncommunicative Agitated, Tracheostomy on T-piece Vital signs noted Hospitalist Physical - Constitutional Vitals: Temp Pulse Resp BP Pulse Ox 98.7 F 92 H 16 117/80 100 03/24/21 04:43 03/24/21 04:43 03/24/21 04:43 03/24/21 04:43 03/24/21 04:43 General appearance: Present: mild distress, well-nourished, obese, other (Anoxic encephalopathy) HEART Score - HEART Score Age: < 45 Risk factors: 1-2 risk factors - Critical Actions Critical Actions: >7 pts:50-65% risk of adverse cardiac event. Early invasive measures Results - Labs CBC & Chem 7: 03/16/21 04:42 03/16/21 04:42 Labs: Laboratory Last Values WBC 9.4 K/mm3 (4.5-11.0) 03/16/21 04:42 RBC 5.06 M/mm3 (3.65-5.03) H 03/16/21 04:42 Hgb 12.2 gm/dl (10.1-14.3) 03/16/21 04:42 Hgb Comment See scanned result 10/04/20 Unknown Hct 37.6 % (30.3-42.9) 03/16/21 04:42 MCV 74 fl (79-97) L 03/16/21 04:42 MCH 24 pg (28-32) L 03/16/21 04:42 MCHC 33 % (30-34) 03/16/21 04:42 RDW 15.8 % (13.2-15.2) H 03/16/21 04:42 Plt Count 311 K/mm3 (140-440) 03/16/21 04:42 Lymph % (Auto) 33.5 % (13.4-35.0) 03/16/21 04:42 Wise % (Auto) 8.1 % (0.0-7.3) H 03/16/21 04:42 Eos % (Auto) 1.7 % (0.0-4.3) 03/16/21 04:42 Baso % (Auto) 0.5 % (0.0-1.8) 03/16/21 04:42 Lymph # (Auto) 3.1 K/mm3 (1.2-5.4) 03/16/21 04:42 Wise # (Auto) 0.8 K/mm3 (0.0-0.8) 03/16/21 04:42 Eos # (Auto) 0.2 K/mm3 (0.0-0.4) 03/16/21 04:42 Baso # (Auto) 0.0 K/mm3 (0.0-0.1) 03/16/21 04:42 Add Manual Diff Complete 02/09/21 10:59 Total Counted 100 02/09/21 10:59 Seg Neutrophils % 56.2 % (40.0-70.0) 03/16/21 04:42 Seg Neuts % (Manual) 58.0 % (40.0-70.0) 02/09/21 10:59 Band Neutrophils % 2.0 % 10/15/20 05:50 Lymphocytes % (Manual) 29.0 % (13.4-35.0) 02/09/21 10:59 Reactive Lymphs % (Man) 1.0 % 10/02/20 12:18 Monocytes % (Manual) 13.0 % (0.0-7.3) H 02/09/21 10:59 Eosinophils % (Manual) 1.0 % (0.0-4.3) 10/29/20 07:56 Myelocytes % 2.0 % 10/02/20 13:05 Metamyelocytes % 1.0 % 10/14/20 04:00 Nucleated RBC % Not Reportable 02/09/21 10:59 Seg Neutrophils # 5.3 K/mm3 (1.8-7.7) 03/16/21 04:42 Seg Neutrophils # Man 3.7 K/mm3 (1.8-7.7) 02/09/21 10:59 Band Neutrophils # 0.0 K/mm3 02/09/21 10:59 Lymphocytes # (Manual) 1.8 K/mm3 (1.2-5.4) 02/09/21 10:59 Abs React Lymphs (Man) 0.0 K/mm3 02/09/21 10:59 Monocytes # (Manual) 0.8 K/mm3 (0.0-0.8) 02/09/21 10:59 Eosinophils # (Manual) 0.0 K/mm3 (0.0-0.4) 02/09/21 10:59 Basophils # (Manual) 0.0 K/mm3 (0.0-0.1) 02/09/21 10:59 Metamyelocytes # 0.0 K/mm3 02/09/21 10:59 Myelocytes # 0.0 K/mm3 02/09/21 10:59 Promyelocytes # 0.0 K/mm3 02/09/21 10:59 Blast Cells # 0.0 K/mm3 02/09/21 10:59 WBC Morphology Not Reportable 02/09/21 10:59 Hypersegmented Neuts Not Reportable 02/09/21 10:59 Hyposegmented Neuts Not Reportable 02/09/21 10:59 Hypogranular Neuts Not Reportable 02/09/21 10:59 Smudge Cells Not Reportable 02/09/21 10:59 Toxic Granulation Not Reportable 02/09/21 10:59 Toxic Vacuolation Not Reportable 02/09/21 10:59 Dohle Bodies Not Reportable 02/09/21 10:59 Pelger-Huet Anomaly Not Reportable 02/09/21 10:59 Ester Rods Not Reportable 02/09/21 10:59 Platelet Estimate Consistent w auto 02/09/21 10:59 Clumped Platelets Not Reportable 02/09/21 10:59 Plt Clumps, EDTA Not Reportable 02/09/21 10:59 Large Platelets Few 02/09/21 10:59 Giant Platelets Not Reportable 02/09/21 10:59 Platelet Satelliting Not Reportable 02/09/21 10:59 Plt Morphology Comment Not Reportable 02/09/21 10:59 RBC Morphology Not Reportable 02/09/21 10:59 Dimorphic RBCs Not Reportable 02/09/21 10:59 Polychromasia Not Reportable 02/09/21 10:59 Hypochromasia 1+ 02/09/21 10:59 Poikilocytosis Not Reportable 02/09/21 10:59 Anisocytosis Not Reportable 02/09/21 10:59 Microcytosis Not Reportable 02/09/21 10:59 Macrocytosis Not Reportable 02/09/21 10:59 Spherocytes Not Reportable 02/09/21 10:59 Pappenheimer Bodies Not Reportable 02/09/21 10:59 Sickle Cells Not Reportable 02/09/21 10:59 Target Cells Not Reportable 02/09/21 10:59 Tear Drop Cells Not Reportable 02/09/21 10:59 Ovalocytes Not Reportable 02/09/21 10:59 Stomatocytes Few 10/14/20 04:00 Helmet Cells Not Reportable 02/09/21 10:59 [place] Bodies Not Reportable 02/09/21 10:59 [place] Rings Not Reportable 02/09/21 10:59 [place] Cells Not Reportable 02/09/21 10:59 Bite Cells Not Reportable 02/09/21 10:59 Crenated Cell Not Reportable 02/09/21 10:59 Elliptocytes Not Reportable 02/09/21 10:59 Acanthocytes (Spur) Not Reportable 02/09/21 10:59 Rouleaux Not Reportable 02/09/21 10:59 Hemoglobin C Crystals Not Reportable 02/09/21 10:59 Schistocytes Not Reportable 02/09/21 10:59 Malaria parasites Not Reportable 02/09/21 10:59 Sickle Cell Solubility See scanned result 10/04/20 Unknown Hemoglobin A See scanned result 10/04/20 Unknown Hemoglobin A2 See scanned result 10/04/20 Unknown Hemoglobin A2 Prime See scanned result 10/04/20 Unknown Hemoglobin C See scanned result 10/04/20 Unknown Hemoglobin D See scanned result 10/04/20 Unknown Hemoglobin E See scanned result 10/04/20 Unknown Hgb F Diffential Stain See scanned result 10/04/20 Unknown Hemoglobin F Quant See scanned result 10/04/20 Unknown Hemoglobin G See scanned result 10/04/20 Unknown Hemoglobin S See scanned result 10/04/20 Unknown Hemoglobin O-Holden See scanned result 10/04/20 Unknown Hemoglobin B[place] See scanned result 10/04/20 Unknown Hemoglobin Analilia See scanned result 10/04/20 Unknown Variant Hemoglobin See scanned result 10/04/20 Unknown Abnorm Hgb IEF Confirm See scanned result 10/04/20 Unknown Hemoglobin Interpret See scanned result 10/04/20 Unknown Hemoglobinopathy Note See scanned result 10/04/20 Unknown Sharad Bodies Not Reportable 02/09/21 10:59 Hem Pathologist Commnt No 02/09/21 10:59 PT 13.6 Sec. (12.2-14.9) 10/21/20 13:54 INR 1.06 (0.87-1.13) 10/21/20 13:54 APTT 31.6 Sec. (24.2-36.6) 10/03/20 00:40 Fibrinogen 336 mg/dl (211-480) 10/04/20 10:00 D-Dimer 1974.47 ng/mlDDU (0-234) H 11/11/20 13:50 ABG pH 7.459 pH Units (7.350-7.450) H 10/26/20 10:30 POC ABG pCO2 20.7 mmHg (32.0-48.0) L 10/13/20 07:18 ABG pCO2 32.4 mm Hg 10/26/20 10:30 POC ABG pO2 137.9 mmHg (83-108) H 10/13/20 07:18 ABG pO2 112.2 mm Hg (80.0-90.0) H 10/26/20 10:30 POC ABG HCO3 14.8 10/13/20 07:18 ABG HCO3 22.5 mmol/L (20.0-26.0) 10/26/20 10:30 ABG O2 Saturation 98.2 % (95.0-99.0) 10/26/20 10:30 ABG O2 Content 18.5 (0.0-44) 10/26/20 10:30 POC ABG Base Excess -6.9 10/13/20 07:18 ABG Base Excess -0.6 mmol/L (-2.0-3.0) 10/26/20 10:30 ABG Hemoglobin 13.5 gm/dl (12.0-16.0) 10/26/20 10:30 ABG Oxyhemoglobin 98.3 (94-98) H 10/13/20 07:18 ABG Carboxyhemoglobin 1.3 % (0.0-5.0) 10/26/20 10:30 ABG Methemoglobin 0.5 % (0.0-1.5) 10/26/20 10:30 ABG Sodium 135.9 mmol/L (136.0-145.0) L 10/13/20 07:18 ABG Potassium 3.7 mmol/L (3.40-4.50) 10/13/20 07:18 ABG Chloride 111.0 mmol/L (98-107) H 10/13/20 07:18 ABG Glucose 109 mg/dL (65-95) H 10/13/20 07:18 VBG pH 6.949 (7.320-7.420) L* 10/02/20 Unknown Oxyhemoglobin 96.5 % (95.0-99.0) 10/26/20 10:30 Carboxyhemoglobin 0.3 (0.5-1.5) L 10/13/20 07:18 FiO2 25 % 10/26/20 10:30 Sodium 140 mmol/L (137-145) 03/16/21 04:42 Potassium 3.9 mmol/L (3.6-5.0) 03/16/21 04:42 Chloride 103.1 mmol/L (98-107) 03/16/21 04:42 Carbon Dioxide 25 mmol/L (22-30) 03/16/21 04:42 Anion Gap 16 mmol/L 03/16/21 04:42 BUN 12 mg/dL (7-17) 03/16/21 04:42 Creatinine 0.5 mg/dL (0.6-1.2) L 03/16/21 04:42 Estimated GFR > 60 ml/min 03/16/21 04:42 BUN/Creatinine Ratio 24 % 03/16/21 04:42 Glucose 95 mg/dL (65-100) 03/16/21 04:42 POC Glucose 101 mg/dL (70-105) 03/23/21 23:19 Random Insulin 43.2 uIU/mL (<=19.6) H 11/02/20 19:19 Proinsulin See scanned result 11/02/20 19:19 C-Peptide 6.23 ng/mL (0.80-3.85) H 11/02/20 19:19 Lactic Acid 1.90 mmol/L (0.7-2.0) 10/04/20 22:00 Uric Acid 7.5 mg/dL (3.5-7.6) 10/02/20 13:05 Calcium 9.6 mg/dL (8.4-10.2) 03/16/21 04:42 Ionized Calcium 4.4 mg/dL (4.8-5.6) L 10/07/20 21:00 Phosphorus 4.60 mg/dL (2.5-4.5) H 11/13/20 10:05 Magnesium 2.10 mg/dL (1.7-2.3) 11/13/20 10:05 Total Bilirubin 0.80 mg/dL (0.1-1.2) 03/04/21 04:46 AST 51 units/L (5-40) H 03/04/21 04:46 ALT 53 units/L (7-56) 03/04/21 04:46 Alkaline Phosphatase 117 units/L (35-129) 03/04/21 04:46 Lactate Dehydrogenase 769 units/L (91-180) H 10/02/20 13:05 C-Reactive Protein 0.70 mg/dL (0.00-1.30) 11/11/20 13:50 NT-Pro-B Natriuret Pep 2788 pg/mL (0-450) H 10/04/20 10:00 Total Protein 8.4 g/dL (6.3-8.2) H 03/04/21 04:46 Albumin 4.2 g/dL (3.9-5) 03/04/21 04:46 Albumin/Globulin Ratio 1.0 % 03/04/21 04:46 Procalcitonin < 0.05 ng/mL (<0.15) 03/02/21 02:30 Arterial Blood Glucose 109 mg/dL (65-95) H 10/13/20 07:18 Arterial Blood Ionized Calcium 4.6 mg/dL (4.6-5.3) 10/13/20 07:18 Urine Color Yellow (Yellow) 01/25/21 09:51 Urine Turbidity Cloudy (Clear) 01/25/21 09:51 Urine pH 7.0 (5.0-7.0) 01/25/21 09:51 Ur Specific Fabius 1.011 (1.003-1.030) 01/25/21 09:51 Urine Protein <15 mg/dl mg/dL (Negative) 01/25/21 09:51 Urine Glucose (UA) Neg mg/dL (Negative) 01/25/21 09:51 Urine Ketones Neg mg/dL (Negative) 01/25/21 09:51 Urine Blood Neg (Negative) 01/25/21 09:51 Urine Nitrite Neg (Negative) 01/25/21 09:51 Urine Bilirubin Neg (Negative) 01/25/21 09:51 Urine Urobilinogen < 2.0 mg/dL (<2.0) 01/25/21 09:51 Ur Leukocyte Esterase Neg (Negative) 01/25/21 09:51 Urine WBC (Auto) 6.0 /HPF (0.0-6.0) 01/25/21 09:51 Urine RBC (Auto) 3.0 /HPF (0.0-6.0) 01/25/21 09:51 U Epithel Cells (Auto) < 1.0 /HPF (0-13.0) 01/25/21 09:51 Urine Bacteria (Auto) 1+ /HPF (Negative) 01/18/21 08:47 Urine WBC Clumps 3+ /HPF 11/11/20 13:50 Calcium Oxalate Crystal Few 11/11/20 13:50 Urine Mucus Few /HPF 01/25/21 09:51 Urine Yeast (Budding) 2+ /HPF 01/25/21 09:51 Vancomycin Trough 12.6 ug/mL (5.0-20.0) 10/21/20 13:54 Random Vancomycin 10.7 ug/mL (0-40.0) 10/16/20 13:09 Phenytoin 5.7 ug/mL (10.0-20.0) L 10/13/20 07:00 C. difficile Tox (PCR) Positive (Negative) 10/16/20 10:22 Coronavirus (PCR) Negative (Negative) 10/08/20 14:15 Blood Type O POSITIVE 10/02/20 12:50 Antibody Screen Negative 10/02/20 12:50 Crossmatch See Detail 10/02/20 12:50 - Diagnostic Impressions Diagnostic Impressions: Echocardiogram 10/03/20 13:42 Transthoracic Echocardiogram Indication: S/P Cardiac Arrest R/O Cardiomyopathy BP: 133/71 Conclusions *Global left ventricular systolic function is normal. *The estimated ejection fraction is 60-65%. *There is trace of mitral regurgitation. *The right 0heart chambers are both slightly dilated. *There is mild tricuspid regurgitation. *There is mild-moderate pulmonary hypertension. *The right ventricular systolic pressure is calculated at 44 mmHg. *The study quality is technically difficult. Findings Procedure Info: The study quality is technically difficult. The study is technically limited due to patient body habitus. The study was technically limited due to the patient's inability to lay in the left lateral decubitus position. Left Ventricle: The left ventricular chamber size is normal. There is no left ventricular hypertrophy. Global left ventricular systolic function is normal. The estimated ejection fraction is 60-65%. Left Atrium: The left atrial chamber size is normal. Right Ventricle: The right ventricle is slightly dilated. Right Atrium: The right atrium is mildly dilated. Aortic Valve: The aortic valve leaflets are mildly thickened. There is no evidence of aortic regurgitation. There is no evidence of aortic stenosis. Mitral Valve: The mitral valve leaflets are mildly thickened. There is trace of mitral regurgitation. There is no evidence of mitral stenosis. Tricuspid Valve: There is mild tricuspid regurgitation. The right ventricular systolic pressure is calculated at 44 mmHg. There is evidence of mild pulmonary hypertension. Pulmonic Valve: There is trace pulmonic regurgitation. Pericardium: There is no pericardial effusion. Aorta: There is no dilatation of the ascending aorta. There is no dilatation of the aortic root. Venous: The inferior vena cava is dilated. Measurements Chambers 2D Name Value Normal Range IVSd (2D) 1 cm (0.6 - 1.1) LVPWd (2D) 1.01 cm (0.6 - 1.1) LVIDd (2D) 4.58 cm (3.7 - 5.6) LVIDs (2D) 3.17 cm (2 - 3.8) LV FS (2D) 30.93 % - EF Teichholz (2D) 58.66 % - Ao root diameter (2D) 2.94 cm (2 - 3.7) Volumes/Mass Name Value Normal Range LA ESV SP 4CH (A/L) 72.82 ml - LA ESV SP 2CH (A/L) 66.86 ml - LA ESV BP (A/L) 74.49 ml - LA ESV SP 4CH (MOD) 71.03 ml - LA ESV SP 2CH (MOD) 64.3 ml - LV EDV SP 4CH (MOD) 98.82 ml - LV ESV SP 4CH (MOD) 24.8 ml - EF SP 4CH (MOD) 74.9 % - LV EDV SP 2CH (MOD) 86.1 ml - LV ESV SP 2CH (MOD) 36.93 ml - EF SP 2CH (MOD) 57.11 % - LV EDV BP 94.4 ml - LV ESV BP 32.66 ml - BP EF (MOD) 65.4 % - Diastolic/Systolic Function Name Value Normal Range MV E-wave Vmax 1.04 m/sec - MV deceleration time 160.46 msec - MV A-wave Vmax 0.92 m/sec - MV E:A ratio 1.14 ratio - Aortic Valve Name Value Normal Range AV Vmax 2.12 m/sec - AV VTI 22.37 cm - AV peak gradient 17.95 mmHg - AV mean gradient 7.29 mmHg - LVOT diameter 2.01 cm - LVOT Vmax 1.8 m/sec - LVOT VTI 27.17 cm - LVOT peak gradient 12.91 mmHg - LVOT mean gradient 6.83 mmHg - SV LVOT 86.42 ml - ANITA (continuity Vmax) 2.7 cm2 - ANITA (continuity VTI) 3.86 cm2 - Ascending Ao 3.18 cm - Tricuspid Valve Name Value Normal Range TV E-wave Vmax 0.88 m/sec - TR Vmax 3.01 m/sec - TR peak gradient 36.27 mmHg - RAP 8 mmHg - RVSP 44 mmHg - IVC diameter 2.65 cm (1.2 - 2.3) Pulmonic Valve/Qp:Qs Name Value Normal Range PV Vmax 1.22 m/sec - PV peak gradient 5.91 mmHg - RVOT Vmax 0.87 m/sec - RVOT VTI 13.32 cm - RVOT peak gradient 3 mmHg - PV acceleration time 110.37 msec - Hamlin/IV: Voiding Method Incontinent IV Catheter Type [Right Foot] INT / Saline Lock IV Catheter Type [Left Forearm Peripheral IV ] IV Catheter Type [Left Wrist] INT / Saline Lock IV Catheter Type [Right Hand] INT / Saline Lock IV Catheter Type [Right INT / Saline Lock Antecubital] IV Catheter Type [Right Upper Mid-line arm] IV Catheter Type [Left Triple Lumen Cath Internal Jugular] IV Catheter Type [Left Hand] Peripheral IV IV Catheter Type [Left Peripheral IV Antecubital] Active Medications - Current Medications Current Medications: Generic Name Dose Route Start Last Admin Trade Name Freq PRN Reason Stop Dose Admin Acetaminophen 650 mg 10/05/20 16:34 03/24/21 09:24 Acetaminophen 325 Mg/10.15 Ml Oral Liqd Unit Dose FEEDTUBE 650 mg Q6H PRN Administration Non Cardiac Pain or Temp>100.5 Albuterol 2.5 mg 11/05/20 13:03 11/06/20 13:04 Albuterol 2.5 Mg/3 Ml Nebu IH 2.5 mg Q4HRT PRN Administration Shortness Of Breath Alprazolam 0.25 mg 01/20/21 13:33 03/24/21 09:24 Alprazolam 0.25 Mg Tab PO 0.25 mg Q8H PRN Administration Anxiety Lipase/Protease/Amylase 1 each 10/05/20 11:09 Lipase 10,500/Protease 25,000/Amylase 43,750 (Units) Dr Yuval GASCA PRN PRN For Clogged Feeding Tube Enoxaparin Sodium 40 mg 10/22/20 10:00 03/24/21 09:24 Enoxaparin 40 Mg/0.4 Ml Inj SUB-Q 40 mg DAILY ERINN Administration Protocol Famotidine 20 mg 10/07/20 10:00 03/24/21 09:24 Famotidine 20 Mg Tab PO 20 mg BID ERINN Administration Hydrophilic Ointment 1 applic 01/03/21 13:00 02/16/21 09:56 Lip Therapy Vaseline TP 1 applic DIRECT PRN Administration Dry Lips Dextrose 1,000 mls @ 30 mls/hr 01/03/21 12:00 02/11/21 18:44 D5w IV 30 mls/hr DIRECT ERINN Administration Metoprolol Tartrate 50 mg 02/02/21 16:01 03/24/21 09:24 Metoprolol Tartrate 25 Mg Tab PO 50 mg BID ERINN Administration Morphine Sulfate 2 mg 01/20/21 13:33 Morphine 2 Mg/1 Ml Inj IV Q4H PRN Pain, Moderate (4-6) Ondansetron HCl 4 mg 02/10/21 11:38 02/10/21 13:18 Ondansetron 4 Mg/2 Ml Inj IV 4 mg Q4H PRN Administration Nausea And Vomiting Simple Syrup 15 ml 10/05/20 11:09 Simple Syrup 15 Ml FEEDTUBE PRN PRN Hypoglycemia Simple Syrup 30 ml 10/05/20 11:09 03/23/21 06:11 Simple Syrup 15 Ml FEEDTUBE 30 ml PRN PRN Administration Hypoglycemia Sodium Bicarbonate 325 mg 10/05/20 11:09 12/16/20 08:19 Sodium Bicarbonate 325 Mg Tab FEEDTUBE 325 mg PRN PRN Administration For Clogged Feeding Tube Nutrition/Malnutrition Assess - Dietary Evaluation Nutrition/Malnutrition Findings: Nutrition Notes Start: 10/04/20 11:13 Freq: Status: Active Protocol: Document 03/17/21 11:56 (Rec: 03/17/21 11:59 [email or web address]) Nutrition Notes Initial or Follow up Reassessment Other Pertinent Diagnosis s/p cardiac arrest x 2, anoxic brain injury Current Diet Promote at 65ml/hr Labs/Tests Reviewed Pertinent Medications Reviewed Height 5 ft 8 in Weight 91.2 kg [place] Body Weight (kg) 63.63 BMI 30.5 Weight Status Obese Subjective/Other Information FU for TF tolerance. Promote is being tolerated at 65 ml/hr . Percent of energy/protein needs met: 100%/100% Burn Absent Trauma Absent GI Symptoms None Difficulty In Swallowing,Chewing Current % PO Negligible Minimum of two criteria Yes Fluid Accumulation Moderate to Severe (severe) #2 Nutrition Diagnosis Malnutrition As Evidenced by Signs and Symptoms no recent wt loss, no edema noted Diagnosis Progress(for reassessment Resolved documentation) #1 Nutrition Diagnosis Inadequate oral intake Diagnosis Progress(for reassessment Continues documentation) Is patient on ventilator? No Is Patient Ambulatory and/or Out of Bed No [facility]) 2006.580 Kcal/Kg value to use for calculation 16 Approximate Energy Requirements Using 1459 kcal/Kg Calculation Used for Recommendations Kcal/kg Additional Notes PRO needs: 64-80g (.8-1.0 g/kg AdBW 81kg) Fluid needs: 1 mL/kcal or per MD Nutrition Intervention Change Diet Order: Continue Nutrition Support: Promote at 65 mL/hr Flush 100 ml q4h Kcal 1,560 Protein (gm) 98 Fluid (mL) 1,309 Goal #1 TF tolerance Goal #2 TF to meet at least 75% estimated energy and protein needs. Anticipated Discharge Needs: Promote at 65 ml/hr Flush 100 ml q4h Follow-Up By: 03/24/21 Additional Comments F/U for stable weights and TF tolerance
--- NOTE | 2021-03-24 17:58 | Cat Scan Report ---
CT BRAIN: 03/24/2021 INDICATION / CLINICAL INFORMATION: Encephalopathy/follow-up, LT side weakness. best scan possible . COMPARISON: MRI brain 10/15/2020 FINDINGS: BRAIN/INTRACRANIAL STRUCTURES: Unenhanced CT images of the brain were obtained. Significant patient motion artifact is present. There is pronounced diffuse cerebral and cerebellar atrophy present, which was not present at the true e the prior exam. There is no evidence of acute ischemic injury or hemorrhage. There are no abnormal extra-axial fluid collections. EXTRACRANIAL STRUCTURES: Unremarkable. IMPRESSION: No evidence of acute abnormality. Pronounced diffuse cerebral atrophy. All CT scans at this location are performed using dose reduction to ALARA by means of automated expos ure control. Signer Name: Wali Lima MD Signed: 03/24/2021 5:53 PM Workstation Name: [id number]
--- NOTE | 2021-03-25 08:28 | Progress Note ---
Assessment and Plan Assessment and plan: --Acute hypoxic respiratory failure: Tracheostomy on T-piece , saturating well Supportive care, Pulmonary critical following --s/p Cardiac arrest x2 on admission and on 10/07 ACLS protocol followed by revival, Echo showed preserved Ef --Anoxic brain injury, Developed following cardiac arrest, patient does not follow commands Restless and agitated continue supportive care f/u CT head without contrast 03/24/2021 [as requested by the family]; no acute abnormality Pronounced diffuse cerebral atrophy --Shock-resolved now awaiting placement, s/p pressor support --DIC (disseminated intravascular coagulation) vs HELLP syndrome , Resolved --Possible Eclampsia/HELLP Syndrome, Resolved --ADOLPH-resolved, Stable --Sepsis 2/2 UTI s/p cefepime to cover possible pseudomonas as sputum is also growing GN rods till 01/04/21 Previous urine culture grew pansensitive ecoli Blood cultures from 12/27-no growth --Hypernatremia, resolved, cont free water with TF --DVT prophylaxis Patient presented with DIC No anticoagulants Overall prognosis extremely poor. DC planning per case management, awaiting placement Multiple social issue Brief history and hospital course; 30 year old -German female CHE 10/25/20 at 36w5d who presents with seizures in triage on 10/02/20. Pt was not able to provide history but per pt's , she presented to the hospital to return a 24 hour urine specimen for analysis. She then suddenly reported that she did not feel good. She was taken to labor and delivery and shortly after arrival, she began seizing. During this time, a code met was called because the patient became hypoxic. She was then noted to be without a pulse. Chest compressions were started immediately, and the patient was emergently taken to the operating room for delivery of the fetus. Off note, This patient has had care at [facility] with comanagement by [facility] since 11 wks complicated by ADHD, morbid obesity, generalized anxiety disorder, panic attacks, chronic narcotic use, fibromyalgia, GERD, Irritable Bowel Syndrome, Migraines, h/o endometrial ablation and ovarian vein embolization, genital herpes, insomnia, LGA fetus, nausea and vomiting, polyhydramnios, quad screen positive for Down's Syndrome, and previous x 3. She was GBS negative. Review hospital stay from 10/02/2020 --- 03/15/2021 03/16/2021; Awaiting placement. Patient is on PEG tube feeding. Saturating well on room air. Patient is mildly tachycardic. Pending placement. 03/17/2021; Awaiting placement. Patient is on PEG tube feeding. Saturating well on room air. Patient is mildly tachycardic. Pending placement. 03/18/2021; awaiting placement. 03/19/2021; awaiting placement. 03/20/2021; awaiting placement. 03/21/21; awaiting placement. 03/22/2021; Awaiting placement. Patient is on PEG tube feeding. Saturating well on room air. Patient is mildly tachycardic. Pending placement. 03/23/2021; multiple social issues, awaiting LTAC placement 03/24/2021; pending placement. Clinically no change, I discussed with patient's mother extensively, she had numerous questions answered all of them She requested a repeat CT head as she noticed significant change in her daughters level of consciousness. Will check CT head without contrast 03/25/2021; I discussed with patient's mother extensively yesterday 03/24/2021, she requested a repeat CT scan as she feels that patient is responding f/u CT head without contrast 03/24/2021; no acute abnormalities, pronounced diffuse cerebral atrophy. History Interval history: I have seen and examined the patient at the bedside Patient's chart and medications reviewed Patient is unresponsive, does not respond to questions Awaiting placement No new complaints Vital signs noted Hospitalist Physical - Constitutional Vitals: Temp Pulse Resp BP Pulse Ox 99.1 F 98 H 16 119/83 100 03/25/21 04:26 03/25/21 04:26 03/25/21 04:26 03/25/21 04:26 03/25/21 04:26 General appearance: Present: mild distress, well-nourished, obese, other (Anoxic encephalopathy, slightly restless) - EENT Eyes: Present: PERRL, EOM intact - Neck Neck: Present: supple, normal ROM - Respiratory Respiratory effort: normal Respiratory: bilateral: diminished, negative: rales, rhonchi, wheezing - Cardiovascular Rhythm: regular Heart Sounds: Present: S1 & S2 - Extremities Extremities: no ischemia Extremity abnormal: edema (,And also to his office few) - Abdominal General gastrointestinal: soft, non-tender, non-distended, other (PEG tube in place) - Integumentary Integumentary: Present: clear, warm - Psychiatric Psychiatric: appropriate mood/affect, cooperative - Neurologic Neurologic: moves all extremities HEART Score - HEART Score Age: < 45 Risk factors: 1-2 risk factors - Critical Actions Critical Actions: >7 pts:50-65% risk of adverse cardiac event. Early invasive measures Results - Labs CBC & Chem 7: 03/16/21 04:42 03/16/21 04:42 Labs: Laboratory Last Values WBC 9.4 K/mm3 (4.5-11.0) 03/16/21 04:42 RBC 5.06 M/mm3 (3.65-5.03) H 03/16/21 04:42 Hgb 12.2 gm/dl (10.1-14.3) 03/16/21 04:42 Hgb Comment See scanned result 10/04/20 Unknown Hct 37.6 % (30.3-42.9) 03/16/21 04:42 MCV 74 fl (79-97) L 03/16/21 04:42 MCH 24 pg (28-32) L 03/16/21 04:42 MCHC 33 % (30-34) 03/16/21 04:42 RDW 15.8 % (13.2-15.2) H 03/16/21 04:42 Plt Count 311 K/mm3 (140-440) 03/16/21 04:42 Lymph % (Auto) 33.5 % (13.4-35.0) 03/16/21 04:42 [place] % (Auto) 8.1 % (0.0-7.3) H 03/16/21 04:42 Eos % (Auto) 1.7 % (0.0-4.3) 03/16/21 04:42 Baso % (Auto) 0.5 % (0.0-1.8) 03/16/21 04:42 Lymph # (Auto) 3.1 K/mm3 (1.2-5.4) 03/16/21 04:42 [place] # (Auto) 0.8 K/mm3 (0.0-0.8) 03/16/21 04:42 Eos # (Auto) 0.2 K/mm3 (0.0-0.4) 03/16/21 04:42 Baso # (Auto) 0.0 K/mm3 (0.0-0.1) 03/16/21 04:42 Add Manual Diff Complete 02/09/21 10:59 Total Counted 100 02/09/21 10:59 Seg Neutrophils % 56.2 % (40.0-70.0) 03/16/21 04:42 Seg Neuts % (Manual) 58.0 % (40.0-70.0) 02/09/21 10:59 Band Neutrophils % 2.0 % 10/15/20 05:50 Lymphocytes % (Manual) 29.0 % (13.4-35.0) 02/09/21 10:59 Reactive Lymphs % (Man) 1.0 % 10/02/20 12:18 Monocytes % (Manual) 13.0 % (0.0-7.3) H 02/09/21 10:59 Eosinophils % (Manual) 1.0 % (0.0-4.3) 10/29/20 07:56 Myelocytes % 2.0 % 10/02/20 13:05 Metamyelocytes % 1.0 % 10/14/20 04:00 Nucleated RBC % Not Reportable 02/09/21 10:59 Seg Neutrophils # 5.3 K/mm3 (1.8-7.7) 03/16/21 04:42 Seg Neutrophils # Man 3.7 K/mm3 (1.8-7.7) 02/09/21 10:59 Band Neutrophils # 0.0 K/mm3 02/09/21 10:59 Lymphocytes # (Manual) 1.8 K/mm3 (1.2-5.4) 02/09/21 10:59 Abs React Lymphs (Man) 0.0 K/mm3 02/09/21 10:59 Monocytes # (Manual) 0.8 K/mm3 (0.0-0.8) 02/09/21 10:59 Eosinophils # (Manual) 0.0 K/mm3 (0.0-0.4) 02/09/21 10:59 Basophils # (Manual) 0.0 K/mm3 (0.0-0.1) 02/09/21 10:59 Metamyelocytes # 0.0 K/mm3 02/09/21 10:59 Myelocytes # 0.0 K/mm3 02/09/21 10:59 Promyelocytes # 0.0 K/mm3 02/09/21 10:59 Blast Cells # 0.0 K/mm3 02/09/21 10:59 WBC Morphology Not Reportable 02/09/21 10:59 Hypersegmented Neuts Not Reportable 02/09/21 10:59 Hyposegmented Neuts Not Reportable 02/09/21 10:59 Hypogranular Neuts Not Reportable 02/09/21 10:59 Smudge Cells Not Reportable 02/09/21 10:59 Toxic Granulation Not Reportable 02/09/21 10:59 Toxic Vacuolation Not Reportable 02/09/21 10:59 Dohle Bodies Not Reportable 02/09/21 10:59 Pelger-Huet Anomaly Not Reportable 02/09/21 10:59 Ester Rods Not Reportable 02/09/21 10:59 Platelet Estimate Consistent w auto 02/09/21 10:59 Clumped Platelets Not Reportable 02/09/21 10:59 Plt Clumps, EDTA Not Reportable 02/09/21 10:59 Large Platelets Few 02/09/21 10:59 Giant Platelets Not Reportable 02/09/21 10:59 Platelet Satelliting Not Reportable 02/09/21 10:59 Plt Morphology Comment Not Reportable 02/09/21 10:59 RBC Morphology Not Reportable 02/09/21 10:59 Dimorphic RBCs Not Reportable 02/09/21 10:59 Polychromasia Not Reportable 02/09/21 10:59 Hypochromasia 1+ 02/09/21 10:59 Poikilocytosis Not Reportable 02/09/21 10:59 Anisocytosis Not Reportable 02/09/21 10:59 Microcytosis Not Reportable 02/09/21 10:59 Macrocytosis Not Reportable 02/09/21 10:59 Spherocytes Not Reportable 02/09/21 10:59 Pappenheimer Bodies Not Reportable 02/09/21 10:59 Sickle Cells Not Reportable 02/09/21 10:59 Target Cells Not Reportable 02/09/21 10:59 Tear Drop Cells Not Reportable 02/09/21 10:59 Ovalocytes Not Reportable 02/09/21 10:59 Stomatocytes Few 12/30/20 04:00 Helmet Cells Not Reportable 02/09/21 10:59 Burk-[place] Bodies Not Reportable 02/09/21 10:59 [place] Rings Not Reportable 02/09/21 10:59 Antoine Cells Not Reportable 02/09/21 10:59 Bite Cells Not Reportable 02/09/21 10:59 Crenated Cell Not Reportable 02/09/21 10:59 Elliptocytes Not Reportable 02/09/21 10:59 Acanthocytes (Spur) Not Reportable 02/09/21 10:59 Rouleaux Not Reportable 02/09/21 10:59 Hemoglobin C Crystals Not Reportable 02/09/21 10:59 Schistocytes Not Reportable 02/09/21 10:59 Malaria parasites Not Reportable 02/09/21 10:59 Sickle Cell Solubility See scanned result 10/04/20 Unknown Hemoglobin A See scanned result 10/04/20 Unknown Hemoglobin A2 See scanned result 10/04/20 Unknown Hemoglobin A2 Prime See scanned result 10/04/20 Unknown Hemoglobin C See scanned result 10/04/20 Unknown Hemoglobin D See scanned result 10/04/20 Unknown Hemoglobin E See scanned result 10/04/20 Unknown Hgb F Diffential Stain See scanned result 10/04/20 Unknown Hemoglobin F Quant See scanned result 10/04/20 Unknown Hemoglobin G See scanned result 10/04/20 Unknown Hemoglobin S See scanned result 10/04/20 Unknown Hemoglobin O-[place] See scanned result 10/04/20 Unknown Hemoglobin [place] See scanned result 10/04/20 Unknown Hemoglobin Analilia See scanned result 10/04/20 Unknown Variant Hemoglobin See scanned result 10/04/20 Unknown Abnorm Hgb IEF Confirm See scanned result 10/04/20 Unknown Hemoglobin Interpret See scanned result 10/04/20 Unknown Hemoglobinopathy Note See scanned result 10/04/20 Unknown Sharad Bodies Not Reportable 02/09/21 10:59 Hem Pathologist Commnt No 02/09/21 10:59 PT 13.6 Sec. (12.2-14.9) 10/21/20 13:54 INR 1.06 (0.87-1.13) 10/21/20 13:54 APTT 31.6 Sec. (24.2-36.6) 10/03/20 00:40 Fibrinogen 336 mg/dl (211-480) 10/04/20 10:00 D-Dimer 1974.47 ng/mlDDU (0-234) H 11/11/20 13:50 ABG pH 7.459 pH Units (7.350-7.450) H 10/26/20 10:30 POC ABG pCO2 20.7 mmHg (32.0-48.0) L 10/13/20 07:18 ABG pCO2 32.4 mm Hg 10/26/20 10:30 POC ABG pO2 137.9 mmHg (83-108) H 10/13/20 07:18 ABG pO2 112.2 mm Hg (80.0-90.0) H 10/26/20 10:30 POC ABG HCO3 14.8 10/13/20 07:18 ABG HCO3 22.5 mmol/L (20.0-26.0) 10/26/20 10:30 ABG O2 Saturation 98.2 % (95.0-99.0) 10/26/20 10:30 ABG O2 Content 18.5 (0.0-44) 10/26/20 10:30 POC ABG Base Excess -6.9 10/13/20 07:18 ABG Base Excess -0.6 mmol/L (-2.0-3.0) 10/26/20 10:30 ABG Hemoglobin 13.5 gm/dl (12.0-16.0) 10/26/20 10:30 ABG Oxyhemoglobin 98.3 (94-98) H 10/13/20 07:18 ABG Carboxyhemoglobin 1.3 % (0.0-5.0) 10/26/20 10:30 ABG Methemoglobin 0.5 % (0.0-1.5) 10/26/20 10:30 ABG Sodium 135.9 mmol/L (136.0-145.0) L 10/13/20 07:18 ABG Potassium 3.7 mmol/L (3.40-4.50) 10/13/20 07:18 ABG Chloride 111.0 mmol/L (98-107) H 10/13/20 07:18 ABG Glucose 109 mg/dL (65-95) H 10/13/20 07:18 VBG pH 6.949 (7.320-7.420) L* 10/02/20 Unknown Oxyhemoglobin 96.5 % (95.0-99.0) 10/26/20 10:30 Carboxyhemoglobin 0.3 (0.5-1.5) L 10/13/20 07:18 FiO2 25 % 10/26/20 10:30 Sodium 140 mmol/L (137-145) 03/16/21 04:42 Potassium 3.9 mmol/L (3.6-5.0) 03/16/21 04:42 Chloride 103.1 mmol/L (98-107) 03/16/21 04:42 Carbon Dioxide 25 mmol/L (22-30) 03/16/21 04:42 Anion Gap 16 mmol/L 03/16/21 04:42 BUN 12 mg/dL (7-17) 03/16/21 04:42 Creatinine 0.5 mg/dL (0.6-1.2) L 03/16/21 04:42 Estimated GFR > 60 ml/min 03/16/21 04:42 BUN/Creatinine Ratio 24 % 03/16/21 04:42 Glucose 95 mg/dL (65-100) 03/16/21 04:42 POC Glucose 97 mg/dL (70-105) 03/25/21 00:01 Random Insulin 43.2 uIU/mL (<=19.6) H 11/02/20 19:19 Proinsulin See scanned result 11/02/20 19:19 C-Peptide 6.23 ng/mL (0.80-3.85) H 11/02/20 19:19 Lactic Acid 1.90 mmol/L (0.7-2.0) 10/04/20 22:00 Uric Acid 7.5 mg/dL (3.5-7.6) 10/02/20 13:05 Calcium 9.6 mg/dL (8.4-10.2) 03/16/21 04:42 Ionized Calcium 4.4 mg/dL (4.8-5.6) L 10/07/20 21:00 Phosphorus 4.60 mg/dL (2.5-4.5) H 11/13/20 10:05 Magnesium 2.10 mg/dL (1.7-2.3) 11/13/20 10:05 Total Bilirubin 0.80 mg/dL (0.1-1.2) 05/20/21 04:46 AST 51 units/L (5-40) H 03/04/21 04:46 ALT 53 units/L (7-56) 03/04/21 04:46 Alkaline Phosphatase 117 units/L (35-129) 03/04/21 04:46 Lactate Dehydrogenase 769 units/L (91-180) H 10/02/20 13:05 C-Reactive Protein 0.70 mg/dL (0.00-1.30) 11/11/20 13:50 NT-Pro-B Natriuret Pep 2788 pg/mL (0-450) H 10/04/20 10:00 Total Protein 8.4 g/dL (6.3-8.2) H 03/04/21 04:46 Albumin 4.2 g/dL (3.9-5) 03/04/21 04:46 Albumin/Globulin Ratio 1.0 % 03/04/21 04:46 Procalcitonin < 0.05 ng/mL (<0.15) 03/02/21 02:30 Arterial Blood Glucose 109 mg/dL (65-95) H 10/13/20 07:18 Arterial Blood Ionized Calcium 4.6 mg/dL (4.6-5.3) 10/13/20 07:18 Urine Color Yellow (Yellow) 01/25/21 09:51 Urine Turbidity Cloudy (Clear) 01/25/21 09:51 Urine pH 7.0 (5.0-7.0) 01/25/21 09:51 Ur Specific [place] 1.011 (1.003-1.030) 01/25/21 09:51 Urine Protein <15 mg/dl mg/dL (Negative) 01/25/21 09:51 Urine Glucose (UA) Neg mg/dL (Negative) 01/25/21 09:51 Urine Ketones Neg mg/dL (Negative) 01/25/21 09:51 Urine Blood Neg (Negative) 01/25/21 09:51 Urine Nitrite Neg (Negative) 01/25/21 09:51 Urine Bilirubin Neg (Negative) 01/25/21 09:51 Urine Urobilinogen < 2.0 mg/dL (<2.0) 01/25/21 09:51 Ur Leukocyte Esterase Neg (Negative) 01/25/21 09:51 Urine WBC (Auto) 6.0 /HPF (0.0-6.0) 01/25/21 09:51 Urine RBC (Auto) 3.0 /HPF (0.0-6.0) 01/25/21 09:51 U Epithel Cells (Auto) < 1.0 /HPF (0-13.0) 01/25/21 09:51 Urine Bacteria (Auto) 1+ /HPF (Negative) 01/18/21 08:47 Urine WBC Clumps 3+ /HPF 11/11/20 13:50 Calcium Oxalate Crystal Few 11/11/20 13:50 Urine Mucus Few /HPF 01/25/21 09:51 Urine Yeast (Budding) 2+ /HPF 01/25/21 09:51 Vancomycin Trough 12.6 ug/mL (5.0-20.0) 10/21/20 13:54 Random Vancomycin 10.7 ug/mL (0-40.0) 10/16/20 13:09 Phenytoin 5.7 ug/mL (10.0-20.0) L 10/13/20 07:00 C. difficile Tox (PCR) Positive (Negative) 10/16/20 10:22 Coronavirus (PCR) Negative (Negative) 10/08/20 14:15 Blood Type O POSITIVE 10/02/20 12:50 Antibody Screen Negative 10/02/20 12:50 Crossmatch See Detail 10/02/20 12:50 - Diagnostic Impressions Diagnostic Impressions: Echocardiogram 10/03/20 13:42 Transthoracic Echocardiogram Indication: S/P Cardiac Arrest R/O Cardiomyopathy BP: 133/71 Conclusions *Global left ventricular systolic function is normal. *The estimated ejection fraction is 60-65%. *There is trace of mitral regurgitation. *The right 0heart chambers are both slightly dilated. *There is mild tricuspid regurgitation. *There is mild-moderate pulmonary hypertension. *The right ventricular systolic pressure is calculated at 44 mmHg. *The study quality is technically difficult. Findings Procedure Info: The study quality is technically difficult. The study is technically limited due to patient body habitus. The study was technically limited due to the patient's inability to lay in the left lateral decubitus position. Left Ventricle: The left ventricular chamber size is normal. There is no left ventricular hypertrophy. Global left ventricular systolic function is normal. The estimated ejection fraction is 60-65%. Left Atrium: The left atrial chamber size is normal. Right Ventricle: The right ventricle is slightly dilated. Right Atrium: The right atrium is mildly dilated. Aortic Valve: The aortic valve leaflets are mildly thickened. There is no evidence of aortic regurgitation. There is no evidence of aortic stenosis. Mitral Valve: The mitral valve leaflets are mildly thickened. There is trace of mitral regurgitation. There is no evidence of mitral stenosis. Tricuspid Valve: There is mild tricuspid regurgitation. The right ventricular systolic pressure is calculated at 44 mmHg. There is evidence of mild pulmonary hypertension. Pulmonic Valve: There is trace pulmonic regurgitation. Pericardium: There is no pericardial effusion. Aorta: There is no dilatation of the ascending aorta. There is no dilatation of the aortic root. Venous: The inferior vena cava is dilated. Measurements Chambers 2D Name Value Normal Range IVSd (2D) 1 cm (0.6 - 1.1) LVPWd (2D) 1.01 cm (0.6 - 1.1) LVIDd (2D) 4.58 cm (3.7 - 5.6) LVIDs (2D) 3.17 cm (2 - 3.8) LV FS (2D) 30.93 % - EF Teichholz (2D) 58.66 % - Ao root diameter (2D) 2.94 cm (2 - 3.7) Volumes/Mass Name Value Normal Range LA ESV SP 4CH (A/L) 72.82 ml - LA ESV SP 2CH (A/L) 66.86 ml - LA ESV BP (A/L) 74.49 ml - LA ESV SP 4CH (MOD) 71.03 ml - LA ESV SP 2CH (MOD) 64.3 ml - LV EDV SP 4CH (MOD) 98.82 ml - LV ESV SP 4CH (MOD) 24.8 ml - EF SP 4CH (MOD) 74.9 % - LV EDV SP 2CH (MOD) 86.1 ml - LV ESV SP 2CH (MOD) 36.93 ml - EF SP 2CH (MOD) 57.11 % - LV EDV BP 94.4 ml - LV ESV BP 32.66 ml - BP EF (MOD) 65.4 % - Diastolic/Systolic Function Name Value Normal Range MV E-wave Vmax 1.04 m/sec - MV deceleration time 160.46 msec - MV A-wave Vmax 0.92 m/sec - MV E:A ratio 1.14 ratio - Aortic Valve Name Value Normal Range AV Vmax 2.12 m/sec - AV VTI 22.37 cm - AV peak gradient 17.95 mmHg - AV mean gradient 7.29 mmHg - LVOT diameter 2.01 cm - LVOT Vmax 1.8 m/sec - LVOT VTI 27.17 cm - LVOT peak gradient 12.91 mmHg - LVOT mean gradient 6.83 mmHg - SV LVOT 86.42 ml - ANITA (continuity Vmax) 2.7 cm2 - ANITA (continuity VTI) 3.86 cm2 - Ascending Ao 3.18 cm - Tricuspid Valve Name Value Normal Range TV E-wave Vmax 0.88 m/sec - TR Vmax 3.01 m/sec - TR peak gradient 36.27 mmHg - RAP 8 mmHg - RVSP 44 mmHg - IVC diameter 2.65 cm (1.2 - 2.3) Pulmonic Valve/Qp:Qs Name Value Normal Range PV Vmax 1.22 m/sec - PV peak gradient 5.91 mmHg - RVOT Vmax 0.87 m/sec - RVOT VTI 13.32 cm - RVOT peak gradient 3 mmHg - PV acceleration time 110.37 msec - [place]/IV: Voiding Method Incontinent IV Catheter Type [Right Foot] INT / Saline Lock IV Catheter Type [Left Forearm Peripheral IV ] IV Catheter Type [Left Wrist] INT / Saline Lock IV Catheter Type [Right Hand] INT / Saline Lock IV Catheter Type [Right INT / Saline Lock Antecubital] IV Catheter Type [Right Upper Mid-line arm] IV Catheter Type [Left Triple Lumen Cath Internal Jugular] IV Catheter Type [Left Hand] Peripheral IV IV Catheter Type [Left Peripheral IV Antecubital] Active Medications - Current Medications Current Medications: Generic Name Dose Route Start Last Admin Trade Name Freq PRN Reason Stop Dose Admin Acetaminophen 650 mg 10/05/20 16:34 03/24/21 09:24 Acetaminophen 325 Mg/10.15 Ml Oral Liqd Unit Dose FEEDTUBE 650 mg Q6H PRN Administration Non Cardiac Pain or Temp>100.5 Albuterol 2.5 mg 11/05/20 13:03 11/06/20 13:04 Albuterol 2.5 Mg/3 Ml Nebu IH 2.5 mg Q4HRT PRN Administration Shortness Of Breath Alprazolam 0.25 mg 01/20/21 13:33 03/24/21 22:09 Alprazolam 0.25 Mg Tab PO 0.25 mg Q8H PRN Administration Anxiety Lipase/Protease/Amylase 1 each 10/05/20 11:09 Lipase 10,500/Protease 25,000/Amylase 43,750 (Units) Dr Barakat FEEDTUBE PRN PRN For Clogged Feeding Tube Enoxaparin Sodium 40 mg 10/22/20 10:00 03/24/21 09:24 Enoxaparin 40 Mg/0.4 Ml Inj SUB-Q 40 mg DAILY ERINN Administration Protocol Famotidine 20 mg 10/07/20 10:00 03/24/21 22:09 Famotidine 20 Mg Tab PO 20 mg BID ERINN Administration Hydrophilic Ointment 1 applic 01/03/21 13:00 02/16/21 09:56 Lip Therapy Vaseline TP 1 applic DIRECT PRN Administration Dry Lips Dextrose 1,000 mls @ 30 mls/hr 01/03/21 12:00 02/11/21 18:44 D5w IV 30 mls/hr DIRECT ERINN Administration Metoprolol Tartrate 50 mg 02/02/21 16:01 03/24/21 22:09 Metoprolol Tartrate 25 Mg Tab PO 50 mg BID ERINN Administration Morphine Sulfate 2 mg 01/20/21 13:33 Morphine 2 Mg/1 Ml Inj IV Q4H PRN Pain, Moderate (4-6) Ondansetron HCl 4 mg 02/10/21 11:38 02/10/21 13:18 Ondansetron 4 Mg/2 Ml Inj IV 4 mg Q4H PRN Administration Nausea And Vomiting Simple Syrup 15 ml 10/05/20 11:09 Simple Syrup 15 Ml FEEDTUBE PRN PRN Hypoglycemia Simple Syrup 30 ml 10/05/20 11:09 03/23/21 06:11 Simple Syrup 15 Ml FEEDTUBE 30 ml PRN PRN Administration Hypoglycemia Sodium Bicarbonate 325 mg 10/05/20 11:09 12/16/20 08:19 Sodium Bicarbonate 325 Mg Tab FEEDTUBE 325 mg PRN PRN Administration For Clogged Feeding Tube Nutrition/Malnutrition Assess - Dietary Evaluation Nutrition/Malnutrition Findings: Nutrition Notes Start: 10/04/20 11:13 Freq: Status: Active Protocol: Document 03/24/21 11:52 BRENANA (Rec: 03/24/21 11:58 BREANNA [id number]) Nutrition Notes Initial or Follow up Reassessment Other Pertinent Diagnosis s/p cardiac arrest x 2, anoxic brain injury Current Diet TF - Promote at 65ml/hr Labs/Tests Reviewed Pertinent Medications Reviewed Height 5 ft 8 in Weight 88.8 kg [place] Body Weight (kg) 63.63 BMI 29.7 Weight change and time frame 2.6% wt loss x 7 days Weight Status Overweight Subjective/Other Information Pt tolerating TF at goal rate, per RN. Pt awaiting placement. Percent of energy/protein needs met: 79% energy 100% pro Burn Absent Trauma Absent #1 Nutrition Diagnosis Inadequate oral intake Diagnosis Progress(for reassessment Continues documentation) Is patient on ventilator? No Is Patient Ambulatory and/or Out of Bed No REE-([place]-confined to bed) 1976.804 Calculation Used for Recommendations [facility] Additional Notes Pro needs 0.8-1g/k-89g/ day Fluid needs 1ml/kcal Nutrition Intervention Nutrition Support: Continue Promote at 65 mL/hr Flush 100 ml q4h Kcal 1,560 Protein (gm) 98 Fluid (mL) 1,309 Goal #1 TF tolerance Goal #2 TF to meet at least 75% estimated energy and protein needs. Follow-Up By: 03/31/21 Additional Comments F/U: stable TF, wt
[2021-03-25] MEDS: ENOXAPARIN 40 MG/0.4 ML INJ SUB-Q SCH (10:10)
[2021-03-25] MEDS: FAMOTIDINE 20 MG TAB PO SCH ×2 (10:10→21:29)
[2021-03-25] MEDS: METOPROLOL TARTRATE 25 MG TAB PO SCH ×2 (10:10→21:28)
[2021-03-25] MEDS: ALPRAZolam 0.25 MG TAB PO PRN ×2 (10:11→21:29)
--- NOTE | 2021-03-26 10:05 | Progress Note ---
Assessment and Plan Assessment and plan: --Acute hypoxic respiratory failure: Tracheostomy on T-piece , saturating well Supportive care, Pulmonary critical following --s/p Cardiac arrest x2 on admission and on 10/07 ACLS protocol followed by revival, Echo showed preserved Ef --Anoxic brain injury, Developed following cardiac arrest, patient does not follow commands Restless and agitated continue supportive care f/u CT head without contrast 03/24/2021 [as requested by the family]; no acute abnormality Pronounced diffuse cerebral atrophy --Shock-resolved now awaiting placement, s/p pressor support --DIC (disseminated intravascular coagulation) vs HELLP syndrome , Resolved --Possible Eclampsia/HELLP Syndrome, Resolved --ADOLPH-resolved, Stable --Sepsis 2/2 UTI s/p cefepime to cover possible pseudomonas as sputum is also growing GN rods till 01/04/21 Previous urine culture grew pansensitive ecoli Blood cultures from 12/27-no growth --Hypernatremia, resolved, cont free water with TF --DVT prophylaxis Patient presented with DIC No anticoagulants Overall prognosis extremely poor. DC planning per case management, awaiting placement Multiple social issue Brief history and hospital course; 30 year old -[place] female CHE 10/25/20 at 36w5d who presents with seizures in triage on 10/02/20. Pt was not able to provide history but per pt's , she presented to the hospital to return a 24 hour urine specimen for analysis. She then suddenly reported that she did not feel good. She was taken to labor and delivery and shortly after arrival, she began seizing. During this time, a code met was called because the patient became hypoxic. She was then noted to be without a pulse. Chest compressions were started immediately, and the patient was emergently taken to the operating room for delivery of the fetus. Off note, This patient has had care at [facility] with comanagement by [facility] since 11 wks complicated by ADHD, morbid obesity, generalized anxiety disorder, panic attacks, chronic narcotic use, fibromyalgia, GERD, Irritable Bowel Syndrome, Migraines, h/o endometrial ablation and ovarian vein embolization, genital herpes, insomnia, LGA fetus, nausea and vomiting, polyhydramnios, quad screen positive for Down's Syndrome, and previous x 3. She was GBS negative. 10/02/21 11:30: Pt brought to L&D triage for evaluation of possible labor. Pt accompanied by her spouse. Pt spouse poor historian; unable to obtain history- allergies at this time. Pt taken from registration to triage area via WC. Pt unresponsive, actively seizing with snorous respirations. traffic personnel supervisor, Kassy, called and requesting assistance. 11:35: Multiple staff at bedside. Pt 02 sat 67% on nonrebreather, unable to read BP at this time. Yifan Theodore CRNA, at bedside for intubation and assistance w ith IV insertion. INT attempt by multiple RNs unsuccessful at this time. 11:42: Pt being bagged by KORIN, 02% 79%. No pulse palpated, compressions started at this time; bharati young called and Dr. Newberry preparing OR for emergent c/s. 11:44: Continued compressions on stretcher while transporting pt to OR 1. Pt being bagged with jaw thrust manuever in place by KORIN Stringer student. 11:45: Arrival to OR 1. Dr. Newberry and Dr. Portillo present for emergent c/s. Code team arrived for continued care. patient revived and c/s done Patient has been bleeding from C/s site followed by supracervical hysterectomy for severe bleeding Patient transfused multiple units of PRBC, Patient in DIC. Transferred to the ICU 10/03. Patient seen and examined at bedside this morning. Patient is nonresponsive and mechanically ventilated. On pressors. Labs reviewed-has leukocytosis, anemia, thrombocytopenia, ADOLPH and lactic acidosis. Started on IV antibiotics to cover possible sepsis secondary to DIC. Hematology oncology recommendations appreciated-needs additional cryoprecipitate and FFP. Monitor D-dimer, fibrinogen and frequent labs. Nephrology consulted for lactic acidosis and ADOLPH. 10/04. Remains mechanically ventilated. Kevin antibiotics. Labs shows improved acidosis - lactic acid 3.5. Hb drop noted. Getting transfused 2 units PRBCs. Platelet count is ~40k. Continue to monitor labs closely. Critical care team on board. 10/05; xray reviewed, concerning for multifocal infilrate, likely underlying Pneumonia, will add ID consult to assist with management of this critically ill patient, start tube feed, closely monitor renal system 10/06: Resumed care, remains on mechanical ventilation. No active bleeding, H&H stable. Continue to monitor CBC and BMP. Continue IV antibiotic for underlying pneumonia. Follow critical care and ID recommendation. 10/07: Remains on mechanical ventilation. No active bleeding, H&H stable. Critical care following, wean off ventilation as tolerated. 10/08: Patient had another cardiac arrest last night. Remains on mechanical ventilation, update family. Continue supportive care -poor prognosis 10/09: Called patient mother and discussed about patient care and management. Answered all question to best of my knowledge and family satisfaction. Patient remains on mechanical ventilation, cardiac arrest x2 so far. Critically sick, poor prognosis 10/10: remains on mechanical ventilation. h/h stable, no active bleeding. monitor CBC/BMP 10/11: WBC trended up with diarrhea, started on vancomycin po. remains on MV, off pressor, tolerating TF 10/12: remains on MV, off pressor, tolerating TF. called family for update but unable to reach, could not leave message as it was full. cont supportive care, wean off vent as tolerated. 10/13/2020; patient is on mechanical ventilation, tolerating tube feeding. Patient has labored breathing. Neuro was consulted and recommend MRI. Patient is on Precedex. Rectal tube in place. 10/14/2020; patient is on mechanical ventilation, Precedex. Patient had fever and blood culture ordered. Patient is on IV vancomycin per ID recommendation. Neuro consulted and recommend MRI. Continue to monitor. Prognosis is guarded. 10/15/2020; patient is on mechanical ventilation, Precedex. Patient had fever and blood culture ordered. Patient is on IV vancomycin per ID recommendation. Neuro consulted and recommend MRI. Continue to monitor. Prognosis is guarded. 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 12/06/20; anoxic brain injury. Awaiting placement. 12/07/2020; anoxic brain injury, awaiting placement. 12/09/2020; anoxic brain injury, awaiting placement. 12/10/2020; patient had episodes of fever overnight. CBC, BMP, blood culture, UA and chest x-ray ordered, will follow and manage accordingly. Urinalysis is suggestive of UTI and I put the patient on ceftriaxone, order urine culture. Chest x-ray is normal. 12/11/2020; patient is on ceftriaxone day 2 for UTI. We will continue to follow urine culture. 12/12/2020. Day #3 of Rocephin for UTI. We will continue for 2 more days while she is here. Present UTI. 12/13/2020. Day #4 of Rocephin for UTI. Patient remains on 50% with tr acheostomy. Remains unresponsive with evidence of anoxic encephalopathy unable to make needs known. 12/14/2020. Day #5 of Rocephin for UTI completed today. Remains encephalopathic unable to make needs known. Remains on 50% unable to decrease oxygen via tracheostomy. Overall prognosis remains extremely poor. 3: Continue to monitor. Stop and monitor antibiotics at this time. Continue to wean oxygen as tolerated. Wean oxygen as tolerated. Case management working on placement. 12/16: Continue supportive care aspiration precautions. Awaiting placement discussion. Monitor fever curve. Prognosis remains poor no evidence of neurological recovery as of today 12/17: Continue supportive care, check labs and chest xray. Still monitor off antibiotics. Monitor Sodium level 12/18: Patient remains with intermittent low grade fever, reviewed EEG from September again, consistent for Ischemic Hypoxic Encephalopathy, patient with decorticating posturing type presentation. Will discuss with account officer to optimize diet so we can discontinue D5. CXR with no abnormality. Discussed extensively with the nursing staff at bedside CXR IMPRESSION: 1. No acute findings. 12/19: No clinical change 12/20: No clinical change, now off abx, monitor, discussed her medications with our pharmacist I believe that her posture and rigidity is likely from underlying anoxic encephalopathy. Continue to monitor and await placement decision. Continue aggressive suctioning. Plan discussed in detail with the nursing staff 12/21: Continue supportive care. Will give 500 cc bolus of fluid today to replace insensible losses. Tachycardia appears to be improving. Blood pressure precludes adjusting cardiac meds. Still awaiting placement from case management. Plan discussed in detail with the nursing staff 12/22. Continue support supportive care. Tracheostomy and PEG in place. Remains nonresponsive. Awaiting placement. 12/23. Continue support supportive care. Tracheostomy and PEG in place. Remains nonresponsive. Awaiting placement. Remains tachycardic. Decrease dose of lasix. Will try low dose metoprolol. Monitor BP closely 12/24. Continue support supportive care. Tracheostomy and PEG in place. Remains nonresponsive. Awaiting placement. Heart rate slightly better. Continue to monitor BP closely 12/25. Continue support supportive care. Tracheostomy and PEG in place. Remains nonresponsive. Awaiting placement. 12/26. Continue support supportive care. Tracheostomy and PEG in place. Remains nonresponsive. Awaiting placement 12/27. Continue support supportive care. Tracheostomy and PEG in place. Remains nonresponsive. Awaiting placement 12/28. Had fever yesterday. Blood culture drawn. UA - UTI - started on antibiotics. Now tracheal aspirate is growing GN rods. 12/29: Continue IV antibiotics, continue supportive care. Since admission patient has shown minimal or no chance of neurological recovery. Need 24/7 assistance. Currently on trach and PEG, nonverbal. Waiting on SNF placement. Discussed with child welfare caseworker today. 12/30: Continue IV antibiotics for UTI, continue supportive care. Pending placement 12/31: continue supportive care. continue supportive care. Pending placement 01/01: continue supportive care. Pending placement. cont Iv abx for UTI till 01/04 01/02: Continue supportive care, pending placement. Sodium level slightly elevated, will start hypotonic fluid. Continue antibiotics till 01/04 01/03; cont hypotonic fluid, increase free water with TF for hypernatremia, follow BMP. cont supportive care. pending placement. cont cefepime. recx blood 01/04: resolved hyponatremia, cont supportive care, pending placement. Last day of supplement today. 01/05: Continue supportive care, pending placement. Monitor H&H and fever curve off antibiotic. 01/06; monitor off abx, suction as needed, Continue supportive care, pending placement. 01/07: Discharge pending on placement, vitals stable. Continue supportive care 01/08: Discharge pending on placement, vitals stable. Continue supportive care. stop lasix, increase metoprolol to 25mg BID for ST. 01/09 patient resting with eyes closed. Opens eyes to tactile stimulus, has a blink reflex, does not follow simple commands, has a T-collar / G-tube Lab results reviewed, low-grade fever, 01/10 Eyes open, does not follow simple commands, no acute events overnight 01/11 no acute events overnight Waiting for placement 01/12 No acute events overnight. Patient awaiting for placement 01/13. No new issues. Awaiting placement 01/14. No new issues. Awaiting placement. 01/15. No new issues. Awaiting placement. 01/16. No new issues. Patient remain stable. Awaiting placement. Check maintenance labs. 01/17. Routine maintenance labs were ordered and are still pending. Await placement. 01/18. Patient with low-grade fever past 24-48 hrs. WBC within normal limits. Check chest x-ray, urinalysis and consider blood cultures. Continue tracheostomy care, secretion control and airway management. Patient currently with PEG and tube feedings at 60 cc an hour. Nutritional support and aspiration precautions. 01/19. Temperature 100.7 overnight. Continue to monitor closely. Continue tracheostomy care, secretion control and airway management. Patient currently with PEG and tube feedings at 60 cc an hour. Nutritional support and aspiration precautions. 01/20. Continue to monitor closely. Continue tracheostomy care, secretion control and airway management. Patient currently with PEG and tube feedings at 60 cc an hour. Nutritional support and aspiration precautions. 01/21. Afebrile overnight. Continue to monitor closely. Continue tracheostomy care, secretion control and airway management. Patient currently with PEG and tube feedings at 60 cc an hour. Nutritional support and aspiration precautions. 01/22. Continue to monitor closely. Continue tracheostomy care, secretion control and airway management. Patient currently with PEG and tube feedings at 60 cc an hour. Nutritional support and aspiration precautions. 01/23. Continue tracheostomy care, secretion control and airway management. Patient currently with PEG and tube feedings at 60 cc an hour. Nutritional support and aspiration precautions. Will get routine labs tomorrow. 01/24. Labs reviewed. No abnormalities. Continue tracheostomy care, secretion control and airway management. Patient currently with PEG and tube feedings at 60 cc an hour. Nutritional support and aspiration precautions. 01/25. Temp 100.6. More sleepy today. Will get chest xray, blood culture, urinalysis, sputum cultures. Will start on empirical abx. 01/26: Vitals noted, slightly tachycardic. Follow culture work-up, continue s upportive care. 01/27: Spiking low-grade temp, negative UA, sputum culture and recent blood cultures also negative. Continue to monitor off antibiotics. Continue supportive care. Pending placement. 01/28: cont to spike low grade temp, negative UA, sputum culture and recent blood cultures also negative. Continue to monitor off antibiotics. will order fpr sinus xry. Continue supportive care. Pending placement. 01/29: Continue to follow clinically, intermittently spiking low-grade temp, all recent culture work is negative, negative UA, normal respiratory jaylan 1 tracheal aspirate. Vitals noted and currently stable. Pending placement 01/30: Clinically unchanged, continue to monitor vitals, continue supportive cares. Pending placement. Discussed plan of care with RN at the bedside. 01/31 - TODATE: cont supportive care, pending placement. monitor vitals carefully. Discussed with family at the bedside. 02/06. Patient afebrile today. Continue trach care. Secretions stable today. Culture data negative so far. Awaiting placement. 02/07. Awaiting placement awaiting family member to evaluate papers. Continue trach care secretions stable. Pending placement 02/09: Intermittent fever, ?drug related, will check cxr and also labs. No new complaints. 02/10: Patient's trach dislodged today. Nevertheless respiratory status is intact attempt to reinsert was unsuccessful will monitor discussed with nursing staff to pay close attention to the patient. Considering that this was not a planned decannulation I will start the patient on continuous pulse ox until full evaluation was done by pulmonary. 02/13/2021 Vital signs stable Unresponsive secondary to anoxic encephalopathy Awaiting placement 02/14/2021 Awaiting placement 02/15/2021 Anoxic encephalopathy Awaiting placement 02/16/2021 Anoxic encephalopathy Awaiting placement 02/17/2021 Anoxic encephalopathy awaiting placement 02/18/2021 Anoxic encephalopathy awaiting placement 02/19/2021 Anoxic encephalopathy awaiting placement 02/20/2021 Anoxic encephalopathy awaiting placement 02/21/2021 Anoxic encephalopathy awaiting placement 02/22/2021 Anoxic encephalopathy awaiting placement 02/23/2021 Anoxic encephalopathy awaiting placement 02/24/2021 Anoxic encephalopathy awaiting placement 02/25/2021 Anoxic encephalopathy waiting for placement 02/26 Awaiting placement 02/27. Awaiting placement 02/28. No change in medical condition. Awaiting placement 03/01. No medical changes noted. Awaiting placement 03/01. No medical changes noted. Awaiting placement 03/02. Had temperature more than 100 Fahrenheit. Ordered labs and chest x-ray. Labs reviewed. No pna and no leukocytosis. Procalcitonin negative. Blood cultures negative so far. Continue to monitor for now 03/03 - 03/11. No overnight events. Awaiting placement. 03/12-03/15. Awaiting placement. Continue trach care, secretion control and airway management. Gastrostomy tube care. Continue tube feedings per dietitian. Mobility protocols for pressure ulcer prophylaxis. Check routine labs 03/16/2021; Awaiting placement. Patient is on PEG tube feeding. Saturating well on room air. Patient is mildly tachycardic. Pending placement. 03/17/2021; Awaiting placement. Patient is on PEG tube feeding. Saturating well on room air. Patient is mildly tachycardic. Pending placement. 03/18/2021; awaiting placement. 03/19/2021; awaiting placement. 03/20/2021; awaiting placement. 03/21/21; awaiting placement. 03/22/2021; Awaiting placement. Patient is on PEG tube feeding. Saturating well on room air. Patient is mildly tachycardic. Pending placement. 03/23/2021; multiple social issues, awaiting LTAC placement 03/24/2021; pending placement. Clinically no change, I discussed with patient's mother extensively, she had numerous questions answered all of them She requested a repeat CT head as she noticed significant change in her daughters level of consciousness. Will check CT head without contrast 03/25/2021; I discussed with patient's mother extensively yesterday 03/24/2021, she requested a repeat CT scan as she feels that patient is responding f/u CT head without contrast 03/24/2021; no acute abnormalities, pronounced diffuse cerebral atrophy. 03/26/2021; awaiting placement, multiple social issues, I called and discussed CT head findings with patient's mother Ms. Santiago She verbalized understanding. Disposition; pending placement History Interval history: I have seen and examined the patient at the bedside Patient's chart and medications reviewed Patient is slightly agitated Not responding to my questions Vital signs noted Patient is awaiting placement Hospitalist Physical - Constitutional Vitals: Temp Pulse Resp BP Pulse Ox 98.5 F 92 H 18 104/63 100 03/26/21 04:54 03/26/21 04:54 03/26/21 04:54 03/26/21 04:54 03/26/21 04:54 General appearance: Present: mild distress, well-nourished, obese, other (Anoxic encephalopathy, slightly restless) - EENT Eyes: Present: PERRL, EOM intact - Neck Neck: Present: supple, other (Tracheostomy on T-piece) - Respiratory Respiratory: bilateral: diminished, rhonchi, negative: rales, wheezing - Cardiovascular Rhythm: regular Heart Sounds: Present: S1 & S2 - Extremities Extremities: no ischemia, No edema - Abdominal General gastrointestinal: soft, non-tender, non-distended, normal bowel sounds, other (PEG tube in place) - Integumentary Integumentary: Present: clear, warm - Psychiatric Psychiatric: other (Noncommunicative, unresponsive to verbal conversation) - Neurologic Neurologic: other (Noncommunicative, unresponsive) HEART Score - HEART Score Age: < 45 Risk factors: 1-2 risk factors - Critical Actions Critical Actions: >7 pts:50-65% risk of adverse cardiac event. Early invasive measures Results - Labs CBC & Chem 7: 03/16/21 04:42 03/16/21 04:42 Labs: Laboratory Last Values WBC 9.4 K/mm3 (4.5-11.0) 03/16/21 04:42 RBC 5.06 M/mm3 (3.65-5.03) H 03/16/21 04:42 Hgb 12.2 gm/dl (10.1-14.3) 03/16/21 04:42 Hgb Comment See scanned result 10/04/20 Unknown Hct 37.6 % (30.3-42.9) 03/16/21 04:42 MCV 74 fl (79-97) L 03/16/21 04:42 MCH 24 pg (28-32) L 03/16/21 04:42 MCHC 33 % (30-34) 03/16/21 04:42 RDW 15.8 % (13.2-15.2) H 03/16/21 04:42 Plt Count 311 K/mm3 (140-440) 03/16/21 04:42 Lymph % (Auto) 33.5 % (13.4-35.0) 03/16/21 04:42 [place] % (Auto) 8.1 % (0.0-7.3) H 03/16/21 04:42 Eos % (Auto) 1.7 % (0.0-4.3) 03/16/21 04:42 Baso % (Auto) 0.5 % (0.0-1.8) 03/16/21 04:42 Lymph # (Auto) 3.1 K/mm3 (1.2-5.4) 03/16/21 04:42 [place] # (Auto) 0.8 K/mm3 (0.0-0.8) 03/16/21 04:42 Eos # (Auto) 0.2 K/mm3 (0.0-0.4) 03/16/21 04:42 Baso # (Auto) 0.0 K/mm3 (0.0-0.1) 03/16/21 04:42 Add Manual Diff Complete 02/09/21 10:59 Total Counted 100 02/09/21 10:59 Seg Neutrophils % 56.2 % (40.0-70.0) 03/16/21 04:42 Seg Neuts % (Manual) 58.0 % (40.0-70.0) 02/09/21 10:59 Band Neutrophils % 2.0 % 10/15/20 05:50 Lymphocytes % (Manual) 29.0 % (13.4-35.0) 02/09/21 10:59 Reactive Lymphs % (Man) 1.0 % 10/02/20 12:18 Monocytes % (Manual) 13.0 % (0.0-7.3) H 02/09/21 10:59 Eosinophils % (Manual) 1.0 % (0.0-4.3) 10/29/20 07:56 Myelocytes % 2.0 % 10/02/20 13:05 Metamyelocytes % 1.0 % 10/14/20 04:00 Nucleated RBC % Not Reportable 02/09/21 10:59 Seg Neutrophils # 5.3 K/mm3 (1.8-7.7) 03/16/21 04:42 Seg Neutrophils # Man 3.7 K/mm3 (1.8-7.7) 02/09/21 10:59 Band Neutrophils # 0.0 K/mm3 02/09/21 10:59 Lymphocytes # (Manual) 1.8 K/mm3 (1.2-5.4) 02/09/21 10:59 Abs React Lymphs (Man) 0.0 K/mm3 02/09/21 10:59 Monocytes # (Manual) 0.8 K/mm3 (0.0-0.8) 02/09/21 10:59 Eosinophils # (Manual) 0.0 K/mm3 (0.0-0.4) 02/09/21 10:59 Basophils # (Manual) 0.0 K/mm3 (0.0-0.1) 02/09/21 10:59 Metamyelocytes # 0.0 K/mm3 02/09/21 10:59 Myelocytes # 0.0 K/mm3 02/09/21 10:59 Promyelocytes # 0.0 K/mm3 02/09/21 10:59 Blast Cells # 0.0 K/mm3 02/09/21 10:59 WBC Morphology Not Reportable 02/09/21 10:59 Hypersegmented Neuts Not Reportable 02/09/21 10:59 Hyposegmented Neuts Not Reportable 02/09/21 10:59 Hypogranular Neuts Not Reportable 02/09/21 10:59 Smudge Cells Not Reportable 02/09/21 10:59 Toxic Granulation Not Reportable 02/09/21 10:59 Toxic Vacuolation Not Reportable 02/09/21 10:59 Dohle Bodies Not Reportable 02/09/21 10:59 Pelger-Huet Anomaly Not Reportable 02/09/21 10:59 Ester Rods Not Reportable 02/09/21 10:59 Platelet Estimate Consistent w auto 02/09/21 10:59 Clumped Platelets Not Reportable 02/09/21 10:59 Plt Clumps, EDTA Not Reportable 02/09/21 10:59 Large Platelets Few 02/09/21 10:59 Giant Platelets Not Reportable 02/09/21 10:59 Platelet Satelliting Not Reportable 02/09/21 10:59 Plt Morphology Comment Not Reportable 02/09/21 10:59 RBC Morphology Not Reportable 02/09/21 10:59 Dimorphic RBCs Not Reportable 02/09/21 10:59 Polychromasia Not Reportable 02/09/21 10:59 Hypochromasia 1+ 02/09/21 10:59 Poikilocytosis Not Reportable 02/09/21 10:59 Anisocytosis Not Reportable 02/09/21 10:59 Microcytosis Not Reportable 02/09/21 10:59 Macrocytosis Not Reportable 02/09/21 10:59 Spherocytes Not Reportable 02/09/21 10:59 Pappenheimer Bodies Not Reportable 02/09/21 10:59 Sickle Cells Not Reportable 02/09/21 10:59 Target Cells Not Reportable 02/09/21 10:59 Tear Drop Cells Not Reportable 02/09/21 10:59 Ovalocytes Not Reportable 02/09/21 10:59 Stomatocytes Few 10/14/20 04:00 Helmet Cells Not Reportable 02/09/21 10:59 [place] Bodies Not Reportable 02/09/21 10:59 [place] Rings Not Reportable 02/09/21 10:59 [place] Cells Not Reportable 02/09/21 10:59 Bite Cells Not Reportable 02/09/21 10:59 Crenated Cell Not Reportable 02/09/21 10:59 Elliptocytes Not Reportable 02/09/21 10:59 Acanthocytes (Spur) Not Reportable 02/09/21 10:59 Rouleaux Not Reportable 02/09/21 10:59 Hemoglobin C Crystals Not Reportable 02/09/21 10:59 Schistocytes Not Reportable 02/09/21 10:59 Malaria parasites Not Reportable 02/09/21 10:59 Sickle Cell Solubility See scanned result 10/04/20 Unknown Hemoglobin A See scanned result 10/04/20 Unknown Hemoglobin A2 See scanned result 10/04/20 Unknown Hemoglobin A2 Prime See scanned result 10/04/20 Unknown Hemoglobin C See scanned result 10/04/20 Unknown Hemoglobin D See scanned result 10/04/20 Unknown Hemoglobin E See scanned result 10/04/20 Unknown Hgb F Diffential Stain See scanned result 10/04/20 Unknown Hemoglobin F Quant See scanned result 10/04/20 Unknown Hemoglobin G See scanned result 10/04/20 Unknown Hemoglobin S See scanned result 10/04/20 Unknown Hemoglobin [place] See scanned result 10/04/20 Unknown Hemoglobin [place] See scanned result 10/04/20 Unknown Hemoglobin Analilia See scanned result 10/04/20 Unknown Variant Hemoglobin See scanned result 10/04/20 Unknown Abnorm Hgb IEF Confirm See scanned result 10/04/20 Unknown Hemoglobin Interpret See scanned result 10/04/20 Unknown Hemoglobinopathy Note See scanned result 10/04/20 Unknown Sharad Bodies Not Reportable 02/09/21 10:59 Hem Pathologist Commnt No 02/09/21 10:59 PT 13.6 Sec. (12.2-14.9) 10/21/20 13:54 INR 1.06 (0.87-1.13) 10/21/20 13:54 APTT 31.6 Sec. (24.2-36.6) 10/03/20 00:40 Fibrinogen 336 mg/dl (211-480) 10/04/20 10:00 D-Dimer 1974.47 ng/mlDDU (0-234) H 11/11/20 13:50 ABG pH 7.459 pH Units (7.350-7.450) H 10/26/20 10:30 POC ABG pCO2 20.7 mmHg (32.0-48.0) L 10/13/20 07:18 ABG pCO2 32.4 mm Hg 10/26/20 10:30 POC ABG pO2 137.9 mmHg (83-108) H 10/13/20 07:18 ABG pO2 112.2 mm Hg (80.0-90.0) H 10/26/20 10:30 POC ABG HCO3 14.8 10/13/20 07:18 ABG HCO3 22.5 mmol/L (20.0-26.0) 10/26/20 10:30 ABG O2 Saturation 98.2 % (95.0-99.0) 10/26/20 10:30 ABG O2 Content 18.5 (0.0-44) 10/26/20 10:30 POC ABG Base Excess -6.9 10/13/20 07:18 ABG Base Excess -0.6 mmol/L (-2.0-3.0) 10/26/20 10:30 ABG Hemoglobin 13.5 gm/dl (12.0-16.0) 10/26/20 10:30 ABG Oxyhemoglobin 98.3 (94-98) H 10/13/20 07:18 ABG Carboxyhemoglobin 1.3 % (0.0-5.0) 10/26/20 10:30 ABG Methemoglobin 0.5 % (0.0-1.5) 10/26/20 10:30 ABG Sodium 135.9 mmol/L (136.0-145.0) L 10/13/20 07:18 ABG Potassium 3.7 mmol/L (3.40-4.50) 10/13/20 07:18 ABG Chloride 111.0 mmol/L (98-107) H 10/13/20 07:18 ABG Glucose 109 mg/dL (65-95) H 10/13/20 07:18 VBG pH 6.949 (7.320-7.420) L* 10/02/20 Unknown Oxyhemoglobin 96.5 % (95.0-99.0) 10/26/20 10:30 Carboxyhemoglobin 0.3 (0.5-1.5) L 10/13/20 07:18 FiO2 25 % 10/26/20 10:30 Sodium 140 mmol/L (137-145) 03/16/21 04:42 Potassium 3.9 mmol/L (3.6-5.0) 03/16/21 04:42 Chloride 103.1 mmol/L (98-107) 03/16/21 04:42 Carbon Dioxide 25 mmol/L (22-30) 03/16/21 04:42 Anion Gap 16 mmol/L 03/16/21 04:42 BUN 12 mg/dL (7-17) 03/16/21 04:42 Creatinine 0.5 mg/dL (0.6-1.2) L 03/16/21 04:42 Estimated GFR > 60 ml/min 03/16/21 04:42 BUN/Creatinine Ratio 24 % 03/16/21 04:42 Glucose 95 mg/dL (65-100) 03/16/21 04:42 POC Glucose 99 mg/dL (70-105) 03/25/21 05:48 Random Insulin 43.2 uIU/mL (<=19.6) H 11/02/20 19:19 Proinsulin See scanned result 11/02/20 19:19 C-Peptide 6.23 ng/mL (0.80-3.85) H 11/02/20 19:19 Lactic Acid 1.90 mmol/L (0.7-2.0) 10/04/20 22:00 Uric Acid 7.5 mg/dL (3.5-7.6) 10/02/20 13:05 Calcium 9.6 mg/dL (8.4-10.2) 03/16/21 04:42 Ionized Calcium 4.4 mg/dL (4.8-5.6) L 10/07/20 21:00 Phosphorus 4.60 mg/dL (2.5-4.5) H 11/13/20 10:05 Magnesium 2.10 mg/dL (1.7-2.3) 11/13/20 10:05 Total Bilirubin 0.80 mg/dL (0.1-1.2) 03/04/21 04:46 AST 51 units/L (5-40) H 03/04/21 04:46 ALT 53 units/L (7-56) 03/04/21 04:46 Alkaline Phosphatase 117 units/L (35-129) 03/04/21 04:46 Lactate Dehydrogenase 769 units/L (91-180) H 10/02/20 13:05 C-Reactive Protein 0.70 mg/dL (0.00-1.30) 11/11/20 13:50 NT-Pro-B Natriuret Pep 2788 pg/mL (0-450) H 10/04/20 10:00 Total Protein 8.4 g/dL (6.3-8.2) H 03/04/21 04:46 Albumin 4.2 g/dL (3.9-5) 03/04/21 04:46 Albumin/Globulin Ratio 1.0 % 03/04/21 04:46 Procalcitonin < 0.05 ng/mL (<0.15) 03/02/21 02:30 Arterial Blood Glucose 109 mg/dL (65-95) H 10/13/20 07:18 Arterial Blood Ionized Calcium 4.6 mg/dL (4.6-5.3) 10/13/20 07:18 Urine Color Yellow (Yellow) 01/25/21 09:51 Urine Turbidity Cloudy (Clear) 01/25/21 09:51 Urine pH 7.0 (5.0-7.0) 01/25/21 09:51 Ur Specific [place] 1.011 (1.003-1.030) 01/25/21 09:51 Urine Protein <15 mg/dl mg/dL (Negative) 01/25/21 09:51 Urine Glucose (UA) Neg mg/dL (Negative) 01/25/21 09:51 Urine Ketones Neg mg/dL (Negative) 01/25/21 09:51 Urine Blood Neg (Negative) 01/25/21 09:51 Urine Nitrite Neg (Negative) 01/25/21 09:51 Urine Bilirubin Neg (Negative) 01/25/21 09:51 Urine Urobilinogen < 2.0 mg/dL (<2.0) 01/25/21 09:51 Ur Leukocyte Esterase Neg (Negative) 01/25/21 09:51 Urine WBC (Auto) 6.0 /HPF (0.0-6.0) 01/25/21 09:51 Urine RBC (Auto) 3.0 /HPF (0.0-6.0) 01/25/21 09:51 U Epithel Cells (Auto) < 1.0 /HPF (0-13.0) 01/25/21 09:51 Urine Bacteria (Auto) 1+ /HPF (Negative) 01/18/21 08:47 Urine WBC Clumps 3+ /HPF 11/11/20 13:50 Calcium Oxalate Crystal Few 11/11/20 13:50 Urine Mucus Few /HPF 01/25/21 09:51 Urine Yeast (Budding) 2+ /HPF 01/25/21 09:51 Vancomycin Trough 12.6 ug/mL (5.0-20.0) 10/21/20 13:54 Random Vancomycin 10.7 ug/mL (0-40.0) 10/16/20 13:09 Phenytoin 5.7 ug/mL (10.0-20.0) L 10/13/20 07:00 C. difficile Tox (PCR) Positive (Negative) 10/16/20 10:22 Coronavirus (PCR) Negative (Negative) 10/08/20 14:15 Blood Type O POSITIVE 10/02/20 12:50 Antibody Screen Negative 10/02/20 12:50 Crossmatch See Detail 10/02/20 12:50 - Diagnostic Impressions Diagnostic Impressions: Echocardiogram 10/03/20 13:42 Transthoracic Echocardiogram Indication: S/P Cardiac Arrest R/O Cardiomyopathy BP: 133/71 Conclusions *Global left ventricular systolic function is normal. *The estimated ejection fraction is 60-65%. *There is trace of mitral regurgitation. *The right 0heart chambers are both slightly dilated. *There is mild tricuspid regurgitation. *There is mild-moderate pulmonary hypertension. *The right ventricular systolic pressure is calculated at 44 mmHg. *The study quality is technically difficult. Findings Procedure Info: The study quality is technically difficult. The study is technically limited due to patient body habitus. The study was technically limited due to the patient's inability to lay in the left lateral decubitus position. Left Ventricle: The left ventricular chamber size is normal. There is no left ventricular hypertrophy. Global left ventricular systolic function is normal. The estimated ejection fraction is 60-65%. Left Atrium: The left atrial chamber size is normal. Right Ventricle: The right ventricle is slightly dilated. Right Atrium: The right atrium is mildly dilated. Aortic Valve: The aortic valve leaflets are mildly thickened. There is no evidence of aortic regurgitation. There is no evidence of aortic stenosis. Mitral Valve: The mitral valve leaflets are mildly thickened. There is trace of mitral regurgitation. There is no evidence of mitral stenosis. Tricuspid Valve: There is mild tricuspid regurgitation. The right ventricular systolic pressure is calculated at 44 mmHg. There is evidence of mild pulmonary hypertension. Pulmonic Valve: There is trace pulmonic regurgitation. Pericardium: There is no pericardial effusion. Aorta: There is no dilatation of the ascending aorta. There is no dilatation of the aortic root. Venous: The inferior vena cava is dilated. Measurements Chambers 2D Name Value Normal Range IVSd (2D) 1 cm (0.6 - 1.1) LVPWd (2D) 1.01 cm (0.6 - 1.1) LVIDd (2D) 4.58 cm (3.7 - 5.6) LVIDs (2D) 3.17 cm (2 - 3.8) LV FS (2D) 30.93 % - EF Teichholz (2D) 58.66 % - Ao root diameter (2D) 2.94 cm (2 - 3.7) Volumes/Mass Name Value Normal Range LA ESV SP 4CH (A/L) 72.82 ml - LA ESV SP 2CH (A/L) 66.86 ml - LA ESV BP (A/L) 74.49 ml - LA ESV SP 4CH (MOD) 71.03 ml - LA ESV SP 2CH (MOD) 64.3 ml - LV EDV SP 4CH (MOD) 98.82 ml - LV ESV SP 4CH (MOD) 24.8 ml - EF SP 4CH (MOD) 74.9 % - LV EDV SP 2CH (MOD) 86.1 ml - LV ESV SP 2CH (MOD) 36.93 ml - EF SP 2CH (MOD) 57.11 % - LV EDV BP 94.4 ml - LV ESV BP 32.66 ml - BP EF (MOD) 65.4 % - Diastolic/Systolic Function Name Value Normal Range MV E-wave Vmax 1.04 m/sec - MV deceleration time 160.46 msec - MV A-wave Vmax 0.92 m/sec - MV E:A ratio 1.14 ratio - Aortic Valve Name Value Normal Range AV Vmax 2.12 m/sec - AV VTI 22.37 cm - AV peak gradient 17.95 mmHg - AV mean gradient 7.29 mmHg - LVOT diameter 2.01 cm - LVOT Vmax 1.8 m/sec - LVOT VTI 27.17 cm - LVOT peak gradient 12.91 mmHg - LVOT mean gradient 6.83 mmHg - SV LVOT 86.42 ml - ANITA (continuity Vmax) 2.7 cm2 - ANITA (continuity VTI) 3.86 cm2 - Ascending Ao 3.18 cm - Tricuspid Valve Name Value Normal Range TV E-wave Vmax 0.88 m/sec - TR Vmax 3.01 m/sec - TR peak gradient 36.27 mmHg - RAP 8 mmHg - RVSP 44 mmHg - IVC diameter 2.65 cm (1.2 - 2.3) Pulmonic Valve/Qp:Qs Name Value Normal Range PV Vmax 1.22 m/sec - PV peak gradient 5.91 mmHg - RVOT Vmax 0.87 m/sec - RVOT VTI 13.32 cm - RVOT peak gradient 3 mmHg - PV acceleration time 110.37 msec - [place]/IV: Voiding Method Incontinent IV Catheter Type [Right Foot] INT / Saline Lock IV Catheter Type [Left Forearm Peripheral IV ] IV Catheter Type [Left Wrist] INT / Saline Lock IV Catheter Type [Right Hand] INT / Saline Lock IV Catheter Type [Right INT / Saline Lock Antecubital] IV Catheter Type [Right Upper Mid-line arm] IV Catheter Type [Left Triple Lumen Cath Internal Jugular] IV Catheter Type [Left Hand] Peripheral IV IV Catheter Type [Left Peripheral IV Antecubital] Active Medications - Current Medications Current Medications: Generic Name Dose Route Start Last Admin Trade Name Freq PRN Reason Stop Dose Admin Acetaminophen 650 mg 10/05/20 16:34 03/24/21 09:24 Acetaminophen 325 Mg/10.15 Ml Oral Liqd Unit Dose FEEDTUBE 650 mg Q6H PRN Administration Non Cardiac Pain or Temp>100.5 Albuterol 2.5 mg 11/05/20 13:03 11/06/20 13:04 Albuterol 2.5 Mg/3 Ml Nebu IH 2.5 mg Q4HRT PRN Administration Shortness Of Breath Alprazolam 0.25 mg 01/20/21 13:33 03/25/21 21:29 Alprazolam 0.25 Mg Tab PO 0.25 mg Q8H PRN Administration Anxiety Lipase/Protease/Amylase 1 each 10/05/20 11:09 Lipase 10,500/Protease 25,000/Amylase 43,750 (Units) Dr Barakat FEEDTUBE PRN PRN For Clogged Feeding Tube Enoxaparin Sodium 40 mg 10/22/20 10:00 03/25/21 10:10 Enoxaparin 40 Mg/0.4 Ml Inj SUB-Q 40 mg DAILY ERINN Administration Protocol Famotidine 20 mg 10/07/20 10:00 03/25/21 21:29 Famotidine 20 Mg Tab PO 20 mg BID ERINN Administration Hydrophilic Ointment 1 applic 01/03/21 13:00 02/16/21 09:56 Lip Therapy Vaseline TP 1 applic DIRECT PRN Administration Dry Lips Dextrose 1,000 mls @ 30 mls/hr 01/03/21 12:00 02/11/21 18:44 D5w IV 30 mls/hr DIRECT ERINN Administration Metoprolol Tartrate 50 mg 02/02/21 16:01 03/25/21 21:28 Metoprolol Tartrate 25 Mg Tab PO 50 mg BID EIRNN Administration Morphine Sulfate 2 mg 01/20/21 13:33 Morphine 2 Mg/1 Ml Inj IV Q4H PRN Pain, Moderate (4-6) Ondansetron HCl 4 mg 02/10/21 11:38 02/10/21 13:18 Ondansetron 4 Mg/2 Ml Inj IV 4 mg Q4H PRN Administration Nausea And Vomiting Simple Syrup 15 ml 10/05/20 11:09 Simple Syrup 15 Ml FEEDTUBE PRN PRN Hypoglycemia Simple Syrup 30 ml 10/05/20 11:09 03/23/21 06:11 Simple Syrup 15 Ml FEEDTUBE 30 ml PRN PRN Administration Hypoglycemia Sodium Bicarbonate 325 mg 10/05/20 11:09 12/16/20 08:19 Sodium Bicarbonate 325 Mg Tab FEEDTUBE 325 mg PRN PRN Administration For Clogged Feeding Tube Nutrition/Malnutrition Assess - Dietary Evaluation Nutrition/Malnutrition Findings: Nutrition Notes Start: 10/04/20 11:13 Freq: Status: Active Protocol: Document 03/24/21 11:52 BREANNA (Rec: 03/24/21 11:58 BREANNA [id number]) Nutrition Notes Initial or Follow up Reassessment Other Pertinent Diagnosis s/p cardiac arrest x 2, anoxic brain injury Current Diet TF - Promote at 65ml/hr Labs/Tests Reviewed Pertinent Medications Reviewed Height 5 ft 8 in Weight 88.8 kg [place] Body Weight (kg) 63.63 BMI 29.7 Weight change and time frame 2.6% wt loss x 7 days Weight Status Overweight Subjective/Other Information Pt tolerating TF at goal rate, per RN. Pt awaiting placement. Percent of energy/protein needs met: 79% energy 100% pro Burn Absent Trauma Absent #1 Nutrition Diagnosis Inadequate oral intake Diagnosis Progress(for reassessment Continues documentation) Is patient on ventilator? No Is Patient Ambulatory and/or Out of Bed No REE-([facility]-confined to bed) 1977.804 Calculation Used for Recommendations [facility] Additional Notes Pro needs 0.8-1g/k-89g/ day Fluid needs 1ml/kcal Nutrition Intervention Nutrition Support: Continue Promote at 65 mL/hr Flush 100 ml q4h Kcal 1,560 Protein (gm) 98 Fluid (mL) 1,309 Goal #1 TF tolerance Goal #2 TF to meet at least 75% estimated energy and protein needs. Follow-Up By: 03/31/21 Additional Comments F/U: stable TF, wt
[2021-03-26] MEDS: ENOXAPARIN 40 MG/0.4 ML INJ SUB-Q SCH (10:24)
[2021-03-26] MEDS: METOPROLOL TARTRATE 25 MG TAB PO SCH ×2 (10:24→22:30)
[2021-03-26] MEDS: FAMOTIDINE 20 MG TAB PO SCH ×2 (10:24→22:32)
[2021-03-26] MEDS: ALPRAZolam 0.25 MG TAB PO PRN (15:51)
--- NOTE | 2021-03-26 18:27 | Event Note ---
Date: 03/24/21 I called the patient's mother Ms. Pamela Holguin at [phone] And discussed in detail patient's condition, tests and reports, consultants recommendation. Discharge planning. Await placement And social issues. She requested a repeat CT head as she and the family feels that patient is improving and responding to them. I ordered CT head without contrast, and will follow and update the mother when the report is available t
--- NOTE | 2021-03-26 18:33 | Event Note ---
Date: 03/26/21 I called the patient's mother Ms. Pamela Holguin at [phone] And discussed in detail patient's condition, also discussed CT head report 03/24/2021 which did not show any acute abnormality, but showed pronounced diffuse cerebral atrophy and updated patient's general condition and discharge planning. Answered all her questions, and encouraged her to call back if she has any new questions or concerns. She was appreciative of my call
[2021-03-27] MEDS: METOPROLOL TARTRATE 25 MG TAB PO SCH ×2 (11:51→22:53)
[2021-03-27] MEDS: ENOXAPARIN 40 MG/0.4 ML INJ SUB-Q SCH (11:51)
[2021-03-27] MEDS: FAMOTIDINE 20 MG TAB PO SCH ×2 (11:52→22:53)
[2021-03-27] MEDS: ALPRAZolam 0.25 MG TAB PO PRN (13:15)
[2021-03-27] MEDS: ACETAMINOPHEN 325 MG/10.15 ML ORAL LIQD UNIT DOSE FEEDTUBE PRN (16:29)
[2021-03-28] MEDS: METOPROLOL TARTRATE 25 MG TAB PO SCH ×2 (10:07→22:44)
[2021-03-28] MEDS: ENOXAPARIN 40 MG/0.4 ML INJ SUB-Q SCH (10:07)
[2021-03-28] MEDS: FAMOTIDINE 20 MG TAB PO SCH ×2 (10:08→22:44)
[2021-03-28] MEDS: ALPRAZolam 0.25 MG TAB PO PRN (12:48)
[2021-03-28] MEDS: ACETAMINOPHEN 325 MG/10.15 ML ORAL LIQD UNIT DOSE FEEDTUBE PRN (12:48)
[2021-03-29] MEDS: ENOXAPARIN 40 MG/0.4 ML INJ SUB-Q SCH (10:16)
[2021-03-29] MEDS: FAMOTIDINE 20 MG TAB PO SCH ×2 (10:16→22:02)
[2021-03-29] MEDS: METOPROLOL TARTRATE 25 MG TAB PO SCH ×2 (10:16→22:06)
--- NOTE | 2021-03-30 08:57 | Progress Note ---
Assessment and Plan Assessment and plan: Clinically no change; --Acute hypoxic respiratory failure: Tracheostomy on T-piece , saturating well Supportive care, Pulmonary critical following --s/p Cardiac arrest x2 on admission and on 10/07 ACLS protocol followed by revival, Echo showed preserved Ef --Anoxic brain injury, Developed following cardiac arrest, patient does not follow commands Restless and agitated continue supportive care f/u CT head without contrast 03/24/2021 [as requested by the family]; no acute abnormality Pronounced diffuse cerebral atrophy --Shock-resolved now awaiting placement, s/p pressor support --DIC (disseminated intravascular coagulation) vs HELLP syndrome , Resolved --Possible Eclampsia/HELLP Syndrome, Resolved --ADOLPH-resolved, Stable --Sepsis 2/2 UTI s/p cefepime to cover possible pseudomonas as sputum is also growing GN rods till 01/04/21 Previous urine culture grew pansensitive ecoli Blood cultures from 12/27-no growth --Hypernatremia, resolved, cont free water with TF --DVT prophylaxis Patient presented with DIC No anticoagulants Overall prognosis extremely poor. DC planning per case management, awaiting placement Multiple social issue Brief history and hospital course; 30 year old -[place]ish female CHE 10/25/20 at 36w5d who presents with seizures in triage on 10/02/20. Pt was not able to provide history but per pt's , she presented to the hospital to return a 24 hour urine specimen for analysis. She then suddenly reported that she did not feel good. She was taken to labor and delivery and shortly after arrival, she began seizing. During this time, a code met was called because the patient became hypoxic. She was then noted to be without a pulse. Chest compressions were started immediately, and the patient was emergently taken to the operating room for delivery of the fetus. Off note, This patient has had care at [facility] with comanagement by [facility] since 11 wks complicated by ADHD, morbid obesity, generalized anxiety disorder, panic attacks, chronic narcotic use, fibromyalgia, GERD, Irritable Bowel Syndrome, Migraines, h/o endometrial ablation and ovarian vein embolization, genital herpes, insomnia, LGA fetus, nausea and vomiting, polyhydramnios, quad screen positive for Down's Syndrome, and previous x 3. She was GBS negative. 10/02/21 11:30: Pt brought to L&D triage for evaluation of possible labor. Pt accompanied by her spouse. Pt spouse poor historian; unable to obtain history- allergies at this time. Pt taken from registration to triage area via WC. Pt unresponsive, actively seizing with snorous respirations. manager media, Kassy, called and requesting assistance. 11:35: Multiple staff at bedside. Pt 02 sat 67% on nonrebreather, unable to read BP at this time. Yifan Theodore CRNA, at bedside for intubation and assistance with IV insertion. INT attempt by multiple RNs unsuccessful at this time. 11:42: Pt being bagged by KORIN, 02% 79%. No pulse palpated, compressions started at this time; bharati young called and Dr. Newberry preparing OR for emergent c/s. 11:44: Continued compressions on stretcher while transporting pt to OR 1. Pt being bagged with jaw thrust manuever in place by KORIN Stringer student. 11:45: Arrival to OR 1. Dr. Newberry and Dr. Portillo present for emergent c/s. Code team arrived for continued care. patient revived and c/s done Patient has been bleeding from C/s site followed by supracervical hysterectomy for severe bleeding Patient transfused multiple units of PRBC, Patient in DIC. Transferred to the ICU 10/03. Patient seen and examined at bedside this morning. Patient is nonresponsive and mechanically ventilated. On pressors. Labs reviewed-has leukocytosis, anemia, thrombocytopenia, ADOLPH and lactic acidosis. Started on IV antibiotics to cover possible sepsis secondary to DIC. Hematology oncology recommendations appreciated-needs additional cryoprecipitate and FFP. Monitor D-dimer, fibrinogen and frequent labs. Nephrology consulted for lactic acidosis and ADOLPH. 10/04. Remains mechanically ventilated. Kevin antibiotics. Labs shows improved acidosis - lactic acid 3.5. Hb drop noted. Getting transfused 2 units PRBCs. Platelet count is ~40k. Continue to monitor labs closely. Critical care team on board. 10/05; xray reviewed, concerning for multifocal infilrate, likely underlying Pneumonia, will add ID consult to assist with management of this critically ill patient, start tube feed, closely monitor renal system 10/06: Resumed care, remains on mechanical ventilation. No active bleeding, H&H stable. Continue to monitor CBC and BMP. Continue IV antibiotic for underlying pneumonia. Follow critical care and ID recommendation. 10/07: Remains on mechanical ventilation. No active bleeding, H&H stable. Critical care following, wean off ventilation as tolerated. 10/08: Patient had another cardiac arrest last night. Remains on mechanical ventilation, update family. Continue supportive care -poor prognosis 10/09: Called patient mother and discussed about patient care and management. Answered all question to best of my knowledge and family satisfaction. Patient remains on mechanical ventilation, cardiac arrest x2 so far. Critically sick, poor prognosis 10/10: remains on mechanical ventilation. h/h stable, no active bleeding. monit or CBC/BMP 10/11: WBC trended up with diarrhea, started on vancomycin po. remains on MV, off pressor, tolerating TF 10/12: remains on MV, off pressor, tolerating TF. called family for update but unable to reach, could not leave message as it was full. cont supportive care, wean off vent as tolerated. 10/13/2020; patient is on mechanical ventilation, tolerating tube feeding. Patient has labored breathing. Neuro was consulted and recommend MRI. Patient is on Precedex. Rectal tube in place. 10/14/2020; patient is on mechanical ventilation, Precedex. Patient had fever and blood culture ordered. Patient is on IV vancomycin per ID recommendation. Neuro consulted and recommend MRI. Continue to monitor. Prognosis is guarded. 10/15/2020; patient is on mechanical ventilation, Precedex. Patient had fever and blood culture ordered. Patient is on IV vancomycin per ID recommendation. Neuro consulted and recommend MRI. Continue to monitor. Prognosis is guarded. 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 12/06/20; anoxic brain injury. Awaiting placement. 12/07/2020; anoxic brain injury, awaiting placement. 12/09/2020; anoxic brain injury, awaiting placement. 12/10/2020; patient had episodes of fever overnight. CBC, BMP, blood culture, UA and chest x-ray ordered, will follow and manage accordingly. Urinalysis is suggestive of UTI and I put the patient on ceftriaxone, order urine culture. Chest x-ray is normal. 12/11/2020; patient is on ceftriaxone day 2 for UTI. We will continue to follow urine culture. 12/12/2020. Day #3 of Rocephin for UTI. We will continue for 2 more days while she is here. Present UTI. 12/13/2020. Day #4 of Rocephin for UTI. Patient remains on 50% with tracheostomy. Remains unresponsive with evidence of anoxic encephalopathy unab le to make needs known. 12/14/2020. Day #5 of Rocephin for UTI completed today. Remains encephalopathic unable to make needs known. Remains on 50% unable to decrease oxygen via tracheostomy. Overall prognosis remains extremely poor. 3: Continue to monitor. Stop and monitor antibiotics at this time. Continue to wean oxygen as tolerated. Wean oxygen as tolerated. Case management working on placement. 12/16: Continue supportive care aspiration precautions. Awaiting placement discussion. Monitor fever curve. Prognosis remains poor no evidence of neurological recovery as of today 12/17: Continue supportive care, check labs and chest xray. Still monitor off antibiotics. Monitor Sodium level 12/18: Patient remains with intermittent low grade fever, reviewed EEG from September again, consistent for Ischemic Hypoxic Encephalopathy, patient with decorticating posturing type presentation. Will discuss with manager power to optimize diet so we can discontinue D5. CXR with no abnormality. Discussed extensively with the nursing staff at bedside CXR IMPRESSION: 1. No acute findings. 12/19: No clinical change 12/20: No clinical change, now off abx, monitor, discussed her medications with our pharmacist I believe that her posture and rigidity is likely from underlying anoxic encephalopathy. Continue to monitor and await placement decision. Continue aggressive suctioning. Plan discussed in detail with the nursing staff 12/21: Continue supportive care. Will give 500 cc bolus of fluid today to replace insensible losses. Tachycardia appears to be improving. Blood pressure precludes adjusting cardiac meds. Still awaiting placement from case management. Plan discussed in detail with the nursing staff 12/22. Continue support supportive care. Tracheostomy and PEG in place. Remains nonresponsive. Awaiting placement. 12/23. Continue support supportive care. Tracheostomy and PEG in place. Remains nonresponsive. Awaiting placement. Remains tachycardic. Decrease dose of lasix. Will try low dose metoprolol. Monitor BP closely 12/24. Continue support supportive care. Tracheostomy and PEG in place. Remains nonresponsive. Awaiting placement. Heart rate slightly better. Continue to monitor BP closely 12/25. Continue support supportive care. Tracheostomy and PEG in place. Remains nonresponsive. Awaiting placement. 12/26. Continue support supportive care. Tracheostomy and PEG in place. Remains nonresponsive. Awaiting placement 12/27. Continue support supportive care. Tracheostomy and PEG in place. Remains nonresponsive. Awaiting placement 12/28. Had fever yesterday. Blood culture drawn. UA - UTI - started on antibiotics. Now tracheal aspirate is growing GN rods. 12/29: Continue IV antibiotics, continue supportive care. Since admission patient has shown minimal or no chance of neurological recovery. Need 24/7 assistance. Currently on trach and PEG, nonverbal. Waiting on SNF placement. Discussed with patient case manager today. 12/30: Continue IV antibiotics for UTI, continue supportive care. Pending placement 12/31: continue supportive care. continue supportive care. Pending placement 01/01: continue supportive care. Pending placement. cont Iv abx for UTI till 01/04 01/02: Continue supportive care, pending placement. Sodium level slightly elev ated, will start hypotonic fluid. Continue antibiotics till 01/04 01/03; cont hypotonic fluid, increase free water with TF for hypernatremia, follow BMP. cont supportive care. pending placement. cont cefepime. recx blood 01/04: resolved hyponatremia, cont supportive care, pending placement. Last day of supplement today. 01/05: Continue supportive care, pending placement. Monitor H&H and fever curve off antibiotic. 01/06; monitor off abx, suction as needed, Continue supportive care, pending pl acement. 01/07: Discharge pending on placement, vitals stable. Continue supportive care 01/08: Discharge pending on placement, vitals stable. Continue supportive care. stop lasix, increase metoprolol to 25mg BID for ST. 01/09 patient resting with eyes closed. Opens eyes to tactile stimulus, has a blink reflex, does not follow simple commands, has a T-collar / G-tube Lab results reviewed, low-grade fever, 01/10 Eyes open, does not follow simple commands, no acute events overnight 01/11 no acute events overnight Waiting for placement 01/12 No acute events overnight. Patient awaiting for placement 01/13. No new issues. Awaiting placement 01/14. No new issues. Awaiting placement. 01/15. No new issues. Awaiting placement. 01/16. No new issues. Patient remain stable. Awaiting placement. Check maintenance labs. 01/17. Routine maintenance labs were ordered and are still pending. Await placement. 01/18. Patient with low-grade fever past 24-48 hrs. WBC within normal limits. Check chest x-ray, urinalysis and consider blood cultures. Continue tracheostomy care, secretion control and airway management. Patient currently with PEG and tube feedings at 60 cc an hour. Nutritional support and aspiration precautions. 01/19. Temperature 100.7 overnight. Continue to monitor closely. Continue tracheostomy care, secretion control and airway management. Patient currently with PEG and tube feedings at 60 cc an hour. Nutritional support and aspiration precautions. 01/20. Continue to monitor closely. Continue tracheostomy care, secretion control and airway management. Patient currently with PEG and tube feedings at 60 cc an hour. Nutritional support and aspiration precautions. 01/21. Afebrile overnight. Continue to monitor closely. Continue tracheostomy care, secretion control and airway management. Patient currently with PEG and tube feedings at 60 cc an hour. Nutritional support and aspiration precautions. 01/22. Continue to monitor closely. Continue tracheostomy care, secretion control and airway management. Patient currently with PEG and tube feedings at 60 cc an hour. Nutritional support and aspiration precautions. 01/23. Continue tracheostomy care, secretion control and airway management. Patient currently with PEG and tube feedings at 60 cc an hour. Nutritional support and aspiration precautions. Will get routine labs tomorrow. 01/24. Labs reviewed. No abnormalities. Continue tracheostomy care, secretion control and airway management. Patient currently with PEG and tube feedings at 60 cc an hour. Nutritional support and aspiration precautions. 01/25. Temp 100.6. More sleepy today. Will get chest xray, blood culture, urinalysis, sputum cultures. Will start on empirical abx. 01/26: Vitals noted, slightly tachycardic. Follow culture work-up, continue supportive care. 01/27: Spiking low-grade temp, negative UA, sputum culture and recent blood cultures also negative. Continue to monitor off antibiotics. Continue supportive care. Pending placement. 01/28: cont to spike low grade temp, negative UA, sputum culture and recent blood cultures also negative. Continue to monitor off antibiotics. will order fpr sinus xry. Continue supportive care. Pending placement. 01/29: Continue to follow clinically, intermittently spiking low-grade temp, all recent culture work is negative, negative UA, normal respiratory jaylan 1 tra cheal aspirate. Vitals noted and currently stable. Pending placement 01/30: Clinically unchanged, continue to monitor vitals, continue supportive cares. Pending placement. Discussed plan of care with RN at the bedside. 01/31 - TODATE: cont supportive care, pending placement. monitor vitals care fully. Discussed with family at the bedside. 02/06. Patient afebrile today. Continue trach care. Secretions stable today. Culture data negative so far. Awaiting placement. 02/07. Awaiting placement awaiting family member to evaluate papers. Continue trach care secretions stable. Pending placement 02/09: Intermittent fever, ?drug related, will check cxr and also labs. No new complaints. 02/10: Patient's trach dislodged today. Nevertheless respiratory status is intact attempt to reinsert was unsuccessful will monitor discussed with nursing staff to pay close attention to the patient. Considering that this was not a planned decannulation I will start the patient on continuous pulse ox until full evaluation was done by pulmonary. 02/13/2021 Vital signs stable Unresponsive secondary to anoxic encephalopathy Awaiting placement 02/14/2021 Awaiting placement 02/15/2021 Anoxic encephalopathy Awaiting placement 02/16/2021 Anoxic encephalopathy Awaiting placement 02/17/2021 Anoxic encephalopathy awaiting placement 02/18/2021 Anoxic encephalopathy awaiting placement 02/19/2021 Anoxic encephalopathy awaiting placement 02/20/2021 Anoxic encephalopathy awaiting placement 02/21/2021 Anoxic encephalopathy awaiting placement 02/22/2021 Anoxic encephalopathy awaiting placement 02/23/2021 Anoxic encephalopathy awaiting placement 02/24/2021 Anoxic encephalopathy awaiting placement 02/25/2021 Anoxic encephalopathy waiting for placement 02/26 Awaiting placement 02/27. Awaiting placement 02/28. No change in medical condition. Awaiting placement 03/01. No medical changes noted. Awaiting placement 03/01. No medical changes noted. Awaiting placement 03/02. Had temperature more than 100 Fahrenheit. Ordered labs and chest x-ray. Labs reviewed. No pna and no leukocytosis. Procalcitonin negative. Blood cultures negative so far. Continue to monitor for now 03/03 - 03/11. No overnight events. Awaiting placement. 03/12-03/15. Awaiting placement. Continue trach care, secretion control and airway management. Gastrostomy tube care. Continue tube feedings per dietitian. Mobility protocols for pressure ulcer prophylaxis. Check routine labs 03/16/2021; Awaiting placement. Patient is on PEG tube feeding. Saturating well on room air. Patient is mildly tachycardic. Pending placement. 03/17/2021; Awaiting placement. Patient is on PEG tube feeding. Saturating well on room air. Patient is mildly tachycardic. Pending placement. 03/18/2021; awaiting placement. 03/19/2021; awaiting placement. 03/20/2021; awaiting placement. 03/21/21; awaiting placement. 03/22/2021; Awaiting placement. Patient is on PEG tube feeding. Saturating well on room air. Patient is mildly tachycardic. Pending placement. 03/23/2021; multiple social issues, awaiting LTAC placement 03/24/2021; pending placement. Clinically no change, I discussed with patient's mother extensively, she had numerous questions answered all of them She requested a repeat CT head as she noticed significant change in her [facility] level of consciousness. Will check CT head without contrast 03/25/2021; I discussed with patient's mother extensively yesterday 03/24/2021, she requested a repeat CT scan as she feels that patient is responding f/u CT head without contrast 03/24/2021; no acute abnormalities, pronounced diffuse cerebral atrophy. 03/26/2021; awaiting placement, multiple social issues, I called and discussed CT head findings with patient's mother Ms. Santiago She verbalized understanding. Disposition; pending placement 03/30/2021 I resumed service today; Clinically no change, awaiting placement, multiple social issues History Interval history: Seen and examined the patient at the bedside Clinically no change patient is noncommunicative Alert and awake restless Vital signs noted Hospitalist Physical - Constitutional Vitals: Temp Pulse Resp BP Pulse Ox 98.3 F 106 H 20 116/76 100 03/30/21 05:51 03/30/21 05:51 03/30/21 05:51 03/30/21 05:51 03/30/21 05:51 General appearance: Present: mild distress, well-nourished, obese, other (Anoxic encephalopathy, slightly restless) - EENT Eyes: Present: PERRL, EOM intact - Neck Neck: Present: supple, normal ROM - Respiratory Respiratory effort: normal Respiratory: bilateral: diminished, rhonchi, negative: rales, wheezing - Cardiovascular Rhythm: regular Heart Sounds: Present: S1 & S2 - Extremities Extremities: no ischemia, No edema - Abdominal General gastrointestinal: soft, non-tender, non-distended, normal bowel sounds - Integumentary Integumentary: Present: clear, warm - Psychiatric Psychiatric: other (Noncommunicative) - Neurologic Neurologic: other (Noncommunicative) HEART Score - HEART Score Age: < 45 Risk factors: 1-2 risk factors - Critical Actions Critical Actions: >7 pts:50-65% risk of adverse cardiac event. Early invasive measures Results - Labs CBC & Chem 7: 03/16/21 04:42 03/16/21 04:42 Labs: Laboratory Last Values WBC 9.4 K/mm3 (4.5-11.0) 03/16/21 04:42 RBC 5.06 M/mm3 (3.65-5.03) H 03/16/21 04:42 Hgb 12.2 gm/dl (10.1-14.3) 03/16/21 04:42 Hgb Comment See scanned result 10/04/20 Unknown Hct 37.6 % (30.3-42.9) 03/16/21 04:42 MCV 74 fl (79-97) L 03/16/21 04:42 MCH 24 pg (28-32) L 03/16/21 04:42 MCHC 33 % (30-34) 03/16/21 04:42 RDW 15.8 % (13.2-15.2) H 03/16/21 04:42 Plt Count 311 K/mm3 (140-440) 03/16/21 04:42 Lymph % (Auto) 33.5 % (13.4-35.0) 03/16/21 04:42 Jay % (Auto) 8.1 % (0.0-7.3) H 03/16/21 04:42 Eos % (Auto) 1.7 % (0.0-4.3) 03/16/21 04:42 Baso % (Auto) 0.5 % (0.0-1.8) 03/16/21 04:42 Lymph # (Auto) 3.1 K/mm3 (1.2-5.4) 03/16/21 04:42 Jay # (Auto) 0.8 K/mm3 (0.0-0.8) 03/16/21 04:42 Eos # (Auto) 0.2 K/mm3 (0.0-0.4) 03/16/21 04:42 Baso # (Auto) 0.0 K/mm3 (0.0-0.1) 03/16/21 04:42 Add Manual Diff Complete 02/09/21 10:59 Total Counted 100 02/09/21 10:59 Seg Neutrophils % 56.2 % (40.0-70.0) 03/16/21 04:42 Seg Neuts % (Manual) 58.0 % (40.0-70.0) 02/09/21 10:59 Band Neutrophils % 2.0 % 10/15/20 05:50 Lymphocytes % (Manual) 29.0 % (13.4-35.0) 02/09/21 10:59 Reactive Lymphs % (Man) 1.0 % 10/02/20 12:18 Monocytes % (Manual) 13.0 % (0.0-7.3) H 02/09/21 10:59 Eosinophils % (Manual) 1.0 % (0.0-4.3) 10/29/20 07:56 Myelocytes % 2.0 % 10/02/20 13:05 Metamyelocytes % 1.0 % 10/14/20 04:00 Nucleated RBC % Not Reportable 02/09/21 10:59 Seg Neutrophils # 5.3 K/mm3 (1.8-7.7) 03/16/21 04:42 Seg Neutrophils # Man 3.7 K/mm3 (1.8-7.7) 02/09/21 10:59 Band Neutrophils # 0.0 K/mm3 02/09/21 10:59 Lymphocytes # (Manual) 1.8 K/mm3 (1.2-5.4) 02/09/21 10:59 Abs React Lymphs (Man) 0.0 K/mm3 02/09/21 10:59 Monocytes # (Manual) 0.8 K/mm3 (0.0-0.8) 02/09/21 10:59 Eosinophils # (Manual) 0.0 K/mm3 (0.0-0.4) 02/09/21 10:59 Basophils # (Manual) 0.0 K/mm3 (0.0-0.1) 02/09/21 10:59 Metamyelocytes # 0.0 K/mm3 02/09/21 10:59 Myelocytes # 0.0 K/mm3 02/09/21 10:59 Promyelocytes # 0.0 K/mm3 02/09/21 10:59 Blast Cells # 0.0 K/mm3 02/09/21 10:59 WBC Morphology Not Reportable 02/09/21 10:59 Hypersegmented Neuts Not Reportable 02/09/21 10:59 Hyposegmented Neuts Not Reportable 02/09/21 10:59 Hypogranular Neuts Not Reportable 02/09/21 10:59 Smudge Cells Not Reportable 02/09/21 10:59 Toxic Granulation Not Reportable 02/09/21 10:59 Toxic Vacuolation Not Reportable 02/09/21 10:59 Dohle Bodies Not Reportable 02/09/21 10:59 Pelger-Huet Anomaly Not Reportable 02/09/21 10:59 Ester Rods Not Reportable 02/09/21 10:59 Platelet Estimate Consistent w auto 02/09/21 10:59 Clumped Platelets Not Reportable 02/09/21 10:59 Plt Clumps, EDTA Not Reportable 02/09/21 10:59 Large Platelets Few 02/09/21 10:59 Giant Platelets Not Reportable 02/09/21 10:59 Platelet Satelliting Not Reportable 02/09/21 10:59 Plt Morphology Comment Not Reportable 02/09/21 10:59 RBC Morphology Not Reportable 02/09/21 10:59 Dimorphic RBCs Not Reportable 02/09/21 10:59 Polychromasia Not Reportable 02/09/21 10:59 Hypochromasia 1+ 02/09/21 10:59 Poikilocytosis Not Reportable 02/09/21 10:59 Anisocytosis Not Reportable 02/09/21 10:59 Microcytosis Not Reportable 02/09/21 10:59 Macrocytosis Not Reportable 02/09/21 10:59 Spherocytes Not Reportable 02/09/21 10:59 Pappenheimer Bodies Not Reportable 02/09/21 10:59 Sickle Cells Not Reportable 02/09/21 10:59 Target Cells Not Reportable 02/09/21 10:59 Tear Drop Cells Not Reportable 02/09/21 10:59 Ovalocytes Not Reportable 02/09/21 10:59 Stomatocytes Few 10/14/20 04:00 Helmet Cells Not Reportable 02/09/21 10:59 [place] Bodies Not Reportable 02/09/21 10:59 [place] Rings Not Reportable 02/09/21 10:59 [place] Cells Not Reportable 02/09/21 10:59 Bite Cells Not Reportable 02/09/21 10:59 Crenated Cell Not Reportable 02/09/21 10:59 Elliptocytes Not Reportable 02/09/21 10:59 Acanthocytes (Spur) Not Reportable 02/09/21 10:59 Rouleaux Not Reportable 02/09/21 10:59 Hemoglobin C Crystals Not Reportable 02/09/21 10:59 Schistocytes Not Reportable 02/09/21 10:59 Malaria parasites Not Reportable 02/09/21 10:59 Sickle Cell Solubility See scanned result 10/04/20 Unknown Hemoglobin A See scanned result 10/04/20 Unknown Hemoglobin A2 See scanned result 10/04/20 Unknown Hemoglobin A2 Prime See scanned result 10/04/20 Unknown Hemoglobin C See scanned result 10/04/20 Unknown Hemoglobin D See scanned result 10/04/20 Unknown Hemoglobin E See scanned result 10/04/20 Unknown Hgb F Diffential Stain See scanned result 10/04/20 Unknown Hemoglobin F Quant See scanned result 10/04/20 Unknown Hemoglobin G See scanned result 10/04/20 Unknown Hemoglobin S See scanned result 10/04/20 Unknown Hemoglobin O-[place] See scanned result 10/04/20 Unknown Hemoglobin [place] See scanned result 10/04/20 Unknown Hemoglobin Analilia See scanned result 10/04/20 Unknown Variant Hemoglobin See scanned result 10/04/20 Unknown Abnorm Hgb IEF Confirm See scanned result 10/04/20 Unknown Hemoglobin Interpret See scanned result 10/04/20 Unknown Hemoglobinopathy Note See scanned result 10/04/20 Unknown Sharad Bodies Not Reportable 02/09/21 10:59 Hem Pathologist Commnt No 02/09/21 10:59 PT 13.6 Sec. (12.2-14.9) 10/21/20 13:54 INR 1.06 (0.87-1.13) 10/21/20 13:54 APTT 31.6 Sec. (24.2-36.6) 10/03/20 00:40 Fibrinogen 336 mg/dl (211-480) 10/04/20 10:00 D-Dimer 1974.47 ng/mlDDU (0-234) H 11/11/20 13:50 ABG pH 7.459 pH Units (7.350-7.450) H 10/26/20 10:30 POC ABG pCO2 20.7 mmHg (32.0-48.0) L 10/13/20 07:18 ABG pCO2 32.4 mm Hg 10/26/20 10:30 POC ABG pO2 137.9 mmHg (83-108) H 10/13/20 07:18 ABG pO2 112.2 mm Hg (80.0-90.0) H 10/26/20 10:30 POC ABG HCO3 14.8 10/13/20 07:18 ABG HCO3 22.5 mmol/L (20.0-26.0) 10/26/20 10:30 ABG O2 Saturation 98.2 % (95.0-99.0) 10/26/20 10:30 ABG O2 Content 18.5 (0.0-44) 10/26/20 10:30 POC ABG Base Excess -6.9 10/13/20 07:18 ABG Base Excess -0.6 mmol/L (-2.0-3.0) 10/26/20 10:30 ABG Hemoglobin 13.5 gm/dl (12.0-16.0) 10/26/20 10:30 ABG Oxyhemoglobin 98.3 (94-98) H 10/13/20 07:18 ABG Carboxyhemoglobin 1.3 % (0.0-5.0) 10/26/20 10:30 ABG Methemoglobin 0.5 % (0.0-1.5) 10/26/20 10:30 ABG Sodium 135.9 mmol/L (136.0-145.0) L 10/13/20 07:18 ABG Potassium 3.7 mmol/L (3.40-4.50) 10/13/20 07:18 ABG Chloride 111.0 mmol/L (98-107) H 10/13/20 07:18 ABG Glucose 109 mg/dL (65-95) H 10/13/20 07:18 VBG pH 6.949 (7.320-7.420) L* 10/02/20 Unknown Oxyhemoglobin 96.5 % (95.0-99.0) 10/26/20 10:30 Carboxyhemoglobin 0.3 (0.5-1.5) L 10/13/20 07:18 FiO2 25 % 10/26/20 10:30 Sodium 140 mmol/L (137-145) 03/16/21 04:42 Potassium 3.9 mmol/L (3.6-5.0) 03/16/21 04:42 Chloride 103.1 mmol/L (98-107) 03/16/21 04:42 Carbon Dioxide 25 mmol/L (22-30) 03/16/21 04:42 Anion Gap 16 mmol/L 03/16/21 04:42 BUN 12 mg/dL (7-17) 03/16/21 04:42 Creatinine 0.5 mg/dL (0.6-1.2) L 03/16/21 04:42 Estimated GFR > 60 ml/min 03/16/21 04:42 BUN/Creatinine Ratio 24 % 03/16/21 04:42 Glucose 95 mg/dL (65-100) 03/16/21 04:42 POC Glucose 102 mg/dL (70-105) 03/29/21 21:58 Random Insulin 43.2 uIU/mL (<=19.6) H 11/02/20 19:19 Proinsulin See scanned result 11/02/20 19:19 C-Peptide 6.23 ng/mL (0.80-3.85) H 11/02/20 19:19 Lactic Acid 1.90 mmol/L (0.7-2.0) 10/04/20 22:00 Uric Acid 7.5 mg/dL (3.5-7.6) 10/02/20 13:05 Calcium 9.6 mg/dL (8.4-10.2) 03/16/21 04:42 Ionized Calcium 4.4 mg/dL (4.8-5.6) L 10/07/20 21:00 Phosphorus 4.60 mg/dL (2.5-4.5) H 11/13/20 10:05 Magnesium 2.10 mg/dL (1.7-2.3) 11/13/20 10:05 Total Bilirubin 0.80 mg/dL (0.1-1.2) 03/04/21 04:46 AST 51 units/L (5-40) H 03/04/21 04:46 ALT 53 units/L (7-56) 03/04/21 04:46 Alkaline Phosphatase 117 units/L (35-129) 03/04/21 04:46 Lactate Dehydrogenase 769 units/L (91-180) H 10/02/20 13:05 C-Reactive Protein 0.70 mg/dL (0.00-1.30) 11/11/20 13:50 NT-Pro-B Natriuret Pep 2788 pg/mL (0-450) H 10/04/20 10:00 Total Protein 8.4 g/dL (6.3-8.2) H 03/04/21 04:46 Albumin 4.2 g/dL (3.9-5) 03/04/21 04:46 Albumin/Globulin Ratio 1.0 % 03/04/21 04:46 Procalcitonin < 0.05 ng/mL (<0.15) 03/02/21 02:30 Arterial Blood Glucose 109 mg/dL (65-95) H 10/13/20 07:18 Arterial Blood Ionized Calcium 4.6 mg/dL (4.6-5.3) 10/13/20 07:18 Urine Color Yellow (Yellow) 01/25/21 09:51 Urine Turbidity Cloudy (Clear) 01/25/21 09:51 Urine pH 7.0 (5.0-7.0) 01/25/21 09:51 Ur Specific [place] 1.011 (1.003-1.030) 01/25/21 09:51 Urine Protein <15 mg/dl mg/dL (Negative) 01/25/21 09:51 Urine Glucose (UA) Neg mg/dL (Negative) 01/25/21 09:51 Urine Ketones Neg mg/dL (Negative) 01/25/21 09:51 Urine Blood Neg (Negative) 01/25/21 09:51 Urine Nitrite Neg (Negative) 01/25/21 09:51 Urine Bilirubin Neg (Negative) 01/25/21 09:51 Urine Urobilinogen < 2.0 mg/dL (<2.0) 01/25/21 09:51 Ur Leukocyte Esterase Neg (Negative) 01/25/21 09:51 Urine WBC (Auto) 6.0 /HPF (0.0-6.0) 01/25/21 09:51 Urine RBC (Auto) 3.0 /HPF (0.0-6.0) 01/25/21 09:51 U Epithel Cells (Auto) < 1.0 /HPF (0-13.0) 01/25/21 09:51 Urine Bacteria (Auto) 1+ /HPF (Negative) 01/18/21 08:47 Urine WBC Clumps 3+ /HPF 11/11/20 13:50 Calcium Oxalate Crystal Few 11/11/20 13:50 Urine Mucus Few /HPF 01/25/21 09:51 Urine Yeast (Budding) 2+ /HPF 01/25/21 09:51 Vancomycin Trough 12.6 ug/mL (5.0-20.0) 10/21/20 13:54 Random Vancomycin 10.7 ug/mL (0-40.0) 10/16/20 13:09 Phenytoin 5.7 ug/mL (10.0-20.0) L 10/13/20 07:00 C. difficile Tox (PCR) Positive (Negative) 10/16/20 10:22 Coronavirus (PCR) Negative (Negative) 10/08/20 14:15 Blood Type O POSITIVE 10/02/20 12:50 Antibody Screen Negative 10/02/20 12:50 Crossmatch See Detail 10/02/20 12:50 - Diagnostic Impressions Diagnostic Impressions: Echocardiogram 10/03/20 13:42 Transthoracic Echocardiogram Indication: S/P Cardiac Arrest R/O Cardiomyopathy BP: 133/71 Conclusions *Global left ventricular systolic function is normal. *The estimated ejection fraction is 60-65%. *There is trace of mitral regurgitation. *The right 0heart chambers are both slightly dilated. *There is mild tricuspid regurgitation. *There is mild-moderate pulmonary hypertension. *The right ventricular systolic pressure is calculated at 44 mmHg. *The study quality is technically difficult. Findings Procedure Info: The study quality is technically difficult. The study is technically limited due to patient body habitus. The study was technically limited due to the patient's inability to lay in the left lateral decubitus position. Left Ventricle: The left ventricular chamber size is normal. There is no left ventricular hypertrophy. Global left ventricular systolic function is normal. The estimated ejection fraction is 60-65%. Left Atrium: The left atrial chamber size is normal. Right Ventricle: The right ventricle is slightly dilated. Right Atrium: The right atrium is mildly dilated. Aortic Valve: The aortic valve leaflets are mildly thickened. There is no evidence of aortic regurgitation. There is no evidence of aortic stenosis. Mitral Valve: The mitral valve leaflets are mildly thickened. There is trace of mitral regurgitation. There is no evidence of mitral stenosis. Tricuspid Valve: There is mild tricuspid regurgitation. The right ventricular systolic pressure is calculated at 44 mmHg. There is evidence of mild pulmonary hypertension. Pulmonic Valve: There is trace pulmonic regurgitation. Pericardium: There is no pericardial effusion. Aorta: There is no dilatation of the ascending aorta. There is no dilatation of the aortic root. Venous: The inferior vena cava is dilated. Measurements Chambers 2D Name Value Normal Range IVSd (2D) 1 cm (0.6 - 1.1) LVPWd (2D) 1.01 cm (0.6 - 1.1) LVIDd (2D) 4.58 cm (3.7 - 5.6) LVIDs (2D) 3.17 cm (2 - 3.8) LV FS (2D) 30.93 % - EF Teichholz (2D) 58.66 % - Ao root diameter (2D) 2.94 cm (2 - 3.7) Volumes/Mass Name Value Normal Range LA ESV SP 4CH (A/L) 72.82 ml - LA ESV SP 2CH (A/L) 66.86 ml - LA ESV BP (A/L) 74.49 ml - LA ESV SP 4CH (MOD) 71.03 ml - LA ESV SP 2CH (MOD) 64.3 ml - LV EDV SP 4CH (MOD) 98.82 ml - LV ESV SP 4CH (MOD) 24.8 ml - EF SP 4CH (MOD) 74.9 % - LV EDV SP 2CH (MOD) 86.1 ml - LV ESV SP 2CH (MOD) 36.93 ml - EF SP 2CH (MOD) 57.11 % - LV EDV BP 94.4 ml - LV ESV BP 32.66 ml - BP EF (MOD) 65.4 % - Diastolic/Systolic Function Name Value Normal Range MV E-wave Vmax 1.04 m/sec - MV deceleration time 160.46 msec - MV A-wave Vmax 0.92 m/sec - MV E:A ratio 1.14 ratio - Aortic Valve Name Value Normal Range AV Vmax 2.12 m/sec - AV VTI 22.37 cm - AV peak gradient 17.95 mmHg - AV mean gradient 7.29 mmHg - LVOT diameter 2.01 cm - LVOT Vmax 1.8 m/sec - LVOT VTI 27.17 cm - LVOT peak gradient 12.91 mmHg - LVOT mean gradient 6.83 mmHg - SV LVOT 86.42 ml - ANITA (continuity Vmax) 2.7 cm2 - ANITA (continuity VTI) 3.86 cm2 - Ascending Ao 3.18 cm - Tricuspid Valve Name Value Normal Range TV E-wave Vmax 0.88 m/sec - TR Vmax 3.01 m/sec - TR peak gradient 36.27 mmHg - RAP 8 mmHg - RVSP 44 mmHg - IVC diameter 2.65 cm (1.2 - 2.3) Pulmonic Valve/Qp:Qs Name Value Normal Range PV Vmax 1.22 m/sec - PV peak gradient 5.91 mmHg - RVOT Vmax 0.87 m/sec - RVOT VTI 13.32 cm - RVOT peak gradient 3 mmHg - PV acceleration time 110.37 msec - [place]/IV: Voiding Method Incontinent IV Catheter Type [Right Foot] INT / Saline Lock IV Catheter Type [Left Forearm Peripheral IV ] IV Catheter Type [Left Wrist] INT / Saline Lock IV Catheter Type [Right Hand] INT / Saline Lock IV Catheter Type [Right INT / Saline Lock Antecubital] IV Catheter Type [Right Upper Mid-line arm] IV Catheter Type [Left Triple Lumen Cath Internal Jugular] IV Catheter Type [Left Hand] Peripheral IV IV Catheter Type [Left Peripheral IV Antecubital] Active Medications - Current Medications Current Medications: Generic Name Dose Route Start Last Admin Trade Name Freq PRN Reason Stop Dose Admin Acetaminophen 650 mg 10/05/20 16:34 03/28/21 12:48 Acetaminophen 325 Mg/10.15 Ml Oral Liqd Unit Dose FEEDTUBE 650 mg Q6H PRN Administration Non Cardiac Pain or Temp>100.5 Albuterol 2.5 mg 11/05/20 13:03 11/06/20 13:04 Albuterol 2.5 Mg/3 Ml Nebu IH 2.5 mg Q4HRT PRN Administration Shortness Of Breath Alprazolam 0.25 mg 01/20/21 13:33 03/28/21 12:48 Alprazolam 0.25 Mg Tab PO 0.25 mg Q8H PRN Administration Anxiety Lipase/Protease/Amylase 1 each 10/05/20 11:09 Lipase 10,500/Protease 25,000/Amylase 43,750 (Units) Dr Barakat FEEDTUBE PRN PRN For Clogged Feeding Tube Enoxaparin Sodium 40 mg 10/22/20 10:00 03/29/21 10:16 Enoxaparin 40 Mg/0.4 Ml Inj SUB-Q 40 mg DAILY ERINN Administration Protocol Famotidine 20 mg 10/07/20 10:00 03/29/21 22:02 Famotidine 20 Mg Tab PO 20 mg BID ERINN Administration Hydrophilic Ointment 1 applic 01/03/21 13:00 02/16/21 09:56 Lip Therapy Vaseline TP 1 applic DIRECT PRN Administration Dry Lips Dextrose 1,000 mls @ 30 mls/hr 01/03/21 12:00 02/11/21 18:44 D5w IV 30 mls/hr DIRECT ERINN Administration Metoprolol Tartrate 50 mg 02/02/21 16:01 03/29/21 22:06 Metoprolol Tartrate 25 Mg Tab PO Not Given BID ERINN Morphine Sulfate 2 mg 01/20/21 13:33 Morphine 2 Mg/1 Ml Inj IV Q4H PRN Pain, Moderate (4-6) Ondansetron HCl 4 mg 02/10/21 11:38 02/10/21 13:18 Ondansetron 4 Mg/2 Ml Inj IV 4 mg Q4H PRN Administration Nausea And Vomiting Simple Syrup 15 ml 10/05/20 11:09 Simple Syrup 15 Ml FEEDTUBE PRN PRN Hypoglycemia Simple Syrup 30 ml 10/05/20 11:09 03/23/21 06:11 Simple Syrup 15 Ml FEEDTUBE 30 ml PRN PRN Administration Hypoglycemia Sodium Bicarbonate 325 mg 10/05/20 11:09 12/16/20 08:19 Sodium Bicarbonate 325 Mg Tab FEEDTUBE 325 mg PRN PRN Administration For Clogged Feeding Tube Nutrition/Malnutrition Assess - Dietary Evaluation Nutrition/Malnutrition Findings: Nutrition Notes Start: 10/04/20 11:13 Freq: Status: Active Protocol: Document 03/24/21 11:52 BREANNA (Rec: 03/24/21 11:58 BREANNA [id number]) Nutrition Notes Initial or Follow up Reassessment Other Pertinent Diagnosis s/p cardiac arrest x 2, anoxic brain injury Current Diet TF - Promote at 65ml/hr Labs/Tests Reviewed Pertinent Medications Reviewed Height 5 ft 8 in Weight 88.8 kg [place] Body Weight (kg) 63.63 BMI 29.7 Weight change and time frame 2.6% wt loss x 7 days Weight Status Overweight Subjective/Other Information Pt tolerating TF at goal rate, per RN. Pt awaiting placement. Percent of energy/protein needs met: 79% energy 100% pro Burn Absent Trauma Absent #1 Nutrition Diagnosis Inadequate oral intake Diagnosis Progress(for reassessment Continues documentation) Is patient on ventilator? No Is Patient Ambulatory and/or Out of Bed No REE-([facility]-confined to bed) [phone] Calculation Used for Recommendations [facility] Additional Notes Pro needs 0.8-1g/k-89g/ day Fluid needs 1ml/kcal Nutrition Intervention Nutrition Support: Continue Promote at 65 mL/hr Flush 100 ml q4h Kcal 1,560 Protein (gm) 98 Fluid (mL) 1,309 Goal #1 TF tolerance Goal #2 TF to meet at least 75% estimated energy and protein needs. Follow-Up By: 03/31/21 Additional Comments F/U: stable TF, wt
[2021-03-30] MEDS: FAMOTIDINE 20 MG TAB PO SCH ×2 (10:09→22:09)
[2021-03-30] MEDS: ENOXAPARIN 40 MG/0.4 ML INJ SUB-Q SCH (11:25)
[2021-03-30] MEDS: METOPROLOL TARTRATE 25 MG TAB PO SCH ×2 (11:35→22:09)
[2021-03-30] MEDS: ALPRAZolam 0.25 MG TAB PO PRN (12:01)
[2021-03-30] MEDS: ACETAMINOPHEN 325 MG/10.15 ML ORAL LIQD UNIT DOSE FEEDTUBE PRN (22:09)
[2021-03-31] MEDS: ALPRAZolam 0.25 MG TAB PO PRN ×2 (02:42→11:36)
[2021-03-31] MEDS: METOPROLOL TARTRATE 25 MG TAB PO SCH ×2 (11:18→22:10)
[2021-03-31] MEDS: ENOXAPARIN 40 MG/0.4 ML INJ SUB-Q SCH (11:19)
[2021-03-31] MEDS: FAMOTIDINE 20 MG TAB PO SCH ×2 (11:19→22:10)
--- NOTE | 2021-03-31 19:36 | Progress Note ---
Assessment and Plan Assessment and plan: Patient is agitated, not responding to conversation Vital signs noted --Acute hypoxic respiratory failure: Tracheostomy on T-piece , saturating well Supportive care, Pulmonary critical following --s/p Cardiac arrest x2 on admission and on 10/07 ACLS protocol followed by revival, Echo showed preserved Ef --Anoxic brain injury, Developed following cardiac arrest, patient does not follow commands Restless and agitated continue supportive care f/u CT head without contrast 03/24/2021 [as requested by the family]; no acute abnormality Pronounced diffuse cerebral atrophy --Shock-resolved now awaiting placement, s/p pressor support --DIC (disseminated intravascular coagulation) vs HELLP syndrome , Resolved --Possible Eclampsia/HELLP Syndrome, Resolved --ADOLPH-resolved, Stable --Sepsis 2/2 UTI s/p cefepime to cover possible pseudomonas as sputum is also growing GN rods till 01/04/21 Previous urine culture grew pansensitive ecoli Blood cultures from 12/27-no growth --Hypernatremia, resolved, cont free water with TF --DVT prophylaxis Patient presented with DIC No anticoagulants Overall prognosis extremely poor. DC planning per case management, awaiting placement Multiple social issue Brief history and hospital course; 30 year old -[place] female CHE 10/25/20 at 36w5d who presents with seizures in triage on 10/02/20. Pt was not able to provide history but per pt's , she presented to the hospital to return a 24 hour urine specimen for analysis. She then suddenly reported that she did not feel good. She was taken to labor and delivery and shortly after arrival, she began seizing. During this time, a code met was called because the patient became hypoxic. She was then noted to be without a pulse. Chest compressions were started immediately, and the patient was emergently taken to the operating room for delivery of the fetus. Off note, This patient has had care at [facility] with comanagement by [facility] since 11 wks complicated by ADHD, morbid obesity, generalized anxiety disorder, panic attacks, chronic narcotic use, fibromyalgia, GERD, Irritable Bowel Syndrome, Migraines, h/o endometrial ablation and ovarian vein embolization, genital herpes, insomnia, LGA fetus, nausea and vomiting, polyhydramnios, quad screen positive for Down's Syndrome, and previous x 3. She was GBS negative. 10/02/21 11:30: Pt brought to L&D triage for evaluation of possible labor. Pt accompanied by her spouse. Pt spouse poor historian; unable to obtain history- allergies at this time. Pt taken from registration to triage area via WC. Pt unresponsive, actively seizing with snorous respirations. program aide group work, Kassy, called and requesting assistance. 11:35: Multiple staff at bedside. Pt 02 sat 67% on nonrebreather, unable to read BP at this time. Yifna Theodore CRNA, at bedside for intubation and assistance with IV insertion. INT attempt by multiple RNs unsuccessful at this time. 11:42: Pt being bagged by KORIN, 02% 79%. No pulse palpated, compressions started at this time; bharati young called and Dr. Newberry preparing OR for emergent c/s. 11:44: Continued compressions on stretcher while transporting pt to OR 1. Pt being bagged with jaw thrust manuever in place by KORIN Stringer student. 11:45: Arrival to OR 1. Dr. Newberry and Dr. Portillo present for emergent c/s. Code team arrived for continued care. patient revived and c/s done Patient has been bleeding from C/s site followed by supracervical hysterectomy for severe bleeding Patient transfused multiple units of PRBC, Patient in DIC. Transferred to the ICU 10/03. Patient seen and examined at bedside this morning. Patient is nonresponsive and mechanically ventilated. On pressors. Labs reviewed-has leukocytosis, anemia, thrombocytopenia, ADOLPH and lactic acidosis. Started on IV antibiotics to cover possible sepsis secondary to DIC. Hematology oncology recommendations appreciated-needs additional cryoprecipitate and FFP. Monitor D-dimer, fibrinogen and frequent labs. Nephrology consulted for lactic acidosis and ADOLPH. 10/04. Remains mechanically ventilated. Kevin antibiotics. Labs shows improved acidosis - lactic acid 3.5. Hb drop noted. Getting transfused 2 units PRBCs. Platelet count is ~40k. Continue to monitor labs closely. Critical care team on board. 10/05; xray reviewed, concerning for multifocal infilrate, likely underlying Pneumonia, will add ID consult to assist with management of this critically ill patient, start tube feed, closely monitor renal system 10/06: Resumed care, remains on mechanical ventilation. No active bleeding, H&H stable. Continue to monitor CBC and BMP. Continue IV antibiotic for underlying pneumonia. Follow critical care and ID recommendation. 10/07: Remains on mechanical ventilation. No active bleeding, H&H stable. Critical care following, wean off ventilation as tolerated. 10/08: Patient had another cardiac arrest last night. Remains on mechanical ventilation, update family. Continue supportive care -poor prognosis 10/09: Called patient mother and discussed about patient care and management. Answered all question to best of my knowledge and family satisfaction. Patient remains on mechanical ventilation, cardiac arrest x2 so far. Critically sick, poor prognosis 10/10: remains on mechanical ventilation. h/h stable, no active bleeding. monitor CBC/BMP 10/11: WBC trended up with diarrhea, started on vancomycin po. remains on MV, off pressor, tolerating TF 10/12: remains on MV, off pressor, tolerating TF. called family for update but unable to reach, could not leave message as it was full. cont supportive care, wean off vent as tolerated. 10/13/2020; patient is on mechanical ventilation, tolerating tube feeding. Patient has labored breathing. Neuro was consulted and recommend MRI. Patient is on Precedex. Rectal tube in place. 10/14/2020; patient is on mechanical ventilation, Precedex. Patient had fever and blood culture ordered. Patient is on IV vancomycin per ID recommendation. Neuro consulted and recommend MRI. Continue to monitor. Prognosis is guarded. 10/15/2020; patient is on mechanical ventilation, Precedex. Patient had fever and blood culture ordered. Patient is on IV vancomycin per ID recommendation. Neuro consulted and recommend MRI. Continue to monitor. Prognosis is guarded. 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 12/06/20; anoxic brain injury. Awaiting placement. 12/07/2020; anoxic brain injury, awaiting placement. 12/09/2020; anoxic brain injury, awaiting placement. 12/10/2020; patient had episodes of fever overnight. CBC, BMP, blood culture, UA and chest x-ray ordered, will follow and manage accordingly. Urinalysis is suggestive of UTI and I put the patient on ceftriaxone, order urine culture. Chest x-ray is normal. 12/11/2020; patient is on ceftriaxone day 2 for UTI. We will continue to follow urine culture. 12/12/2020. Day #3 of Rocephin for UTI. We will continue for 2 more days while she is here. Present UTI. 12/13/2020. Day #4 of Rocephin for UTI. Patient remains on 50% with tracheostomy. Remains unresponsive with evidence of anoxic encephalopathy unable to make needs known. 12/14/2020. Day #5 of Rocephin for UTI completed today. Remains encephalopathic unable to make needs known. Remains on 50% unable to decrease oxygen via tracheostomy. Overall prognosis remains extremely poor. 3: Continue to monitor. Stop and monitor antibiotics at this time. Continue to wean oxygen as tolerated. Wean oxygen as tolerated. Case management working on placement. 12/16: Continue supportive care aspiration precautions. Awaiting placement discussion. Monitor fever curve. Prognosis remains poor no evidence of neurological recovery as of today 12/17: Continue supportive care, check labs and chest xray. Still monitor off antibiotics. Monitor Sodium level 12/18: Patient remains with intermittent low grade fever, reviewed EEG from September again, consistent for Ischemic Hypoxic Encephalopathy, patient with decorticating posturing type presentation. Will discuss with lap welder to optimize diet so we can discontinue D5. CXR with no abnormality. Discussed extensively with the nursing staff at bedside CXR IMPRESSION: 1. No acute findings. 12/19: No clinical change 12/20: No clinical change, now off abx, monitor, discussed her medications with our pharmacist I believe that her posture and rigidity is likely from underlying anoxic encephalopathy. Continue to monitor and await placement decision. Co ntinue aggressive suctioning. Plan discussed in detail with the nursing staff 12/21: Continue supportive care. Will give 500 cc bolus of fluid today to replace insensible losses. Tachycardia appears to be improving. Blood pressure precludes adjusting cardiac meds. Still awaiting placement from case management. Plan discussed in detail with the nursing staff 12/22. Continue support supportive care. Tracheostomy and PEG in place. Remains nonresponsive. Awaiting placement. 12/23. Continue support supportive care. Tracheostomy and PEG in place. Remains nonresponsive. Awaiting placement. Remains tachycardic. Decrease dose of lasix. Will try low dose metoprolol. Monitor BP closely 12/24. Continue support supportive care. Tracheostomy and PEG in place. Remains nonresponsive. Awaiting placement. Heart rate slightly better. Continue to monitor BP closely 12/25. Continue support supportive care. Tracheostomy and PEG in place. Remains nonresponsive. Awaiting placement. 12/26. Continue support supportive care. Tracheostomy and PEG in place. Remains nonresponsive. Awaiting placement 12/27. Continue support supportive care. Tracheostomy and PEG in place. Remains nonresponsive. Awaiting placement 12/28. Had fever yesterday. Blood culture drawn. UA - UTI - started on a ntibiotics. Now tracheal aspirate is growing GN rods. 12/29: Continue IV antibiotics, continue supportive care. Since admission patient has shown minimal or no chance of neurological recovery. Need 24/ assistance. Currently on trach and PEG, nonverbal. Waiting on SNF placement. Discussed with business case analyst today. 12/30: Continue IV antibiotics for UTI, continue supportive care. Pending plac ement 12/31: continue supportive care. continue supportive care. Pending placement 01/01: continue supportive care. Pending placement. cont Iv abx for UTI till 01/04 01/02: Continue supportive care, pending placement. Sodium level slightly elevated, will start hypotonic fluid. Continue antibiotics till 01/04 01/03; cont hypotonic fluid, increase free water with TF for hypernatremia, follow BMP. cont supportive care. pending placement. cont cefepime. recx blood 01/04: resolved hyponatremia, cont supportive care, pending placement. Last day of supplement today. 01/05: Continue supportive care, pending placement. Monitor H&H and fever curve off antibiotic. 01/06; monitor off abx, suction as needed, Continue supportive care, pending placement. 01/07: Discharge pending on placement, vitals stable. Continue supportive care 01/08: Discharge pending on placement, vitals stable. Continue supportive care. stop lasix, increase metoprolol to 25mg BID for ST. 01/09 patient resting with eyes closed. Opens eyes to tactile stimulus, has a blink reflex, does not follow simple commands, has a T-collar / G-tube Lab results reviewed, low-grade fever, 01/10 Eyes open, does not follow simple commands, no acute events overnight 01/11 no acute events overnight Waiting for placement 01/12 No acute events overnight. Patient awaiting for placement 01/13. No new issues. Awaiting placement 01/14. No new issues. Awaiting placement. 01/15. No new issues. Awaiting placement. 01/16. No new issues. Patient remain stable. Awaiting placement. Check maintenance labs. 01/17. Routine maintenance labs were ordered and are still pending. Await placement. 01/18. Patient with low-grade fever past 24-48 hrs. WBC within normal limits. Check chest x-ray, urinalysis and consider blood cultures. Continue tracheostomy care, secretion control and airway management. Patient currently with PEG and tube feedings at 60 cc an hour. Nutritional support and aspiration precautions. 01/19. Temperature 100.7 overnight. Continue to monitor closely. Continue tracheostomy care, secretion control and airway management. Patient currently with PEG and tube feedings at 60 cc an hour. Nutritional support and aspiration precautions. 01/20. Continue to monitor closely. Continue tracheostomy care, secretion control and airway management. Patient currently with PEG and tube feedings at 60 cc an hour. Nutritional support and aspiration precautions. 01/21. Afebrile overnight. Continue to monitor closely. Continue tracheostomy care, secretion control and airway management. Patient currently with PEG and tube feedings at 60 cc an hour. Nutritional support and aspiration precautions. 01/22. Continue to monitor closely. Continue tracheostomy care, secretion control and airway management. Patient currently with PEG and tube feedings at 60 cc an hour. Nutritional support and aspiration precautions. 01/23. Continue tracheostomy care, secretion control and airway management. Patient currently with PEG and tube feedings at 60 cc an hour. Nutritional support and aspiration precautions. Will get routine labs tomorrow. 01/24. Labs reviewed. No abnormalities. Continue tracheostomy care, secretion control and airway management. Patient currently with PEG and tube feedings at 60 cc an hour. Nutritional support and aspiration precautions. 01/25. Temp 100.6. More sleepy today. Will get chest xray, blood culture, urinalysis, sputum cultures. Will start on empirical abx. 01/26: Vitals noted, slightly tachycardic. Follow culture work-up, continue supportive care. 01/27: Spiking low-grade temp, negative UA, sputum culture and recent blood cultures also negative. Continue to monitor off antibiotics. Continue supportive care. Pending placement. 01/28: cont to spike low grade temp, negative UA, sputum culture and recent blood cultures also negative. Continue to monitor off antibiotics. will order fpr sinus xry. Continue supportive care. Pending placement. 01/29: Continue to follow clinically, intermittently spiking low-grade temp, all recent culture work is negative, negative UA, normal respiratory jaylan 1 tracheal aspirate. Vitals noted and currently stable. Pending placement 01/30: Clinically unchanged, continue to monitor vitals, continue supportive care s. Pending placement. Discussed plan of care with RN at the bedside. 01/31 - TODATE: cont supportive care, pending placement. monitor vitals carefully. Discussed with family at the bedside. 02/06. Patient afebrile today. Continue trach care. Secretions stable today. Culture data negative so far. Awaiting placement. 02/07. Awaiting placement awaiting family member to evaluate papers. Continue trach care secretions stable. Pending placement 02/09: Intermittent fever, ?drug related, will check cxr and also labs. No new complaints. 02/10: Patient's trach dislodged today. Nevertheless respiratory status is intact attempt to reinsert was unsuccessful will monitor discussed with nursing staff to pay close attention to the patient. Considering that this was not a planned decannulation I will start the patient on continuous pulse ox until full evaluation was done by pulmonary. 02/13/2021 Vital signs stable Unresponsive secondary to anoxic encephalopathy Awaiting placement 02/14/2021 Awaiting placement 02/15/2021 Anoxic encephalopathy Awaiting placement 02/16/2021 Anoxic encephalopathy Awaiting placement 02/17/2021 Anoxic encephalopathy awaiting placement 02/18/2021 Anoxic encephalopathy awaiting placement 02/19/2021 Anoxic encephalopathy awaiting placement 02/20/2021 Anoxic encephalopathy awaiting placement 02/21/2021 Anoxic encephalopathy awaiting placement 02/22/2021 Anoxic encephalopathy awaiting placement 02/23/2021 Anoxic encephalopathy awaiting placement 02/24/2021 Anoxic encephalopathy awaiting placement 02/25/2021 Anoxic encephalopathy waiting for placement 02/26 Awaiting placement 02/27. Awaiting placement 02/28. No change in medical condition. Awaiting placement 03/01. No medical changes noted. Awaiting placement 03/01. No medical changes noted. Awaiting placement 03/02. Had temperature more than 100 Fahrenheit. Ordered labs and chest x-ray. Labs reviewed. No pna and no leukocytosis. Procalcitonin negative. Blood cultures negative so far. Continue to monitor for now 03/03 - 03/11. No overnight events. Awaiting placement. 03/12-03/15. Awaiting placement. Continue trach care, secretion control and airway management. Gastrostomy tube care. Continue tube feedings per dietitian. Mobility protocols for pressure ulcer prophylaxis. Check routine labs 03/16/2021; Awaiting placement. Patient is on PEG tube feeding. Saturating well on room air. Patient is mildly tachycardic. Pending placement. 03/17/2021; Awaiting placement. Patient is on PEG tube feeding. Saturating well on room air. Patient is mildly tachycardic. Pending placement. 03/18/2021; awaiting placement. 03/19/2021; awaiting placement. 03/20/2021; awaiting placement. 03/21/21; awaiting placement. 03/22/2021; Awaiting placement. Patient is on PEG tube feeding. Saturating well on room air. Patient is mildly tachycardic. Pending placement. 03/23/2021; multiple social issues, awaiting LTAC placement 03/24/2021; pending placement. Clinically no change, I discussed with patient's mother extensively, she had numerous questions answered all of them She requested a repeat CT head as she noticed significant change in her daughters level of consciousness. Will check CT head without contrast 03/25/2021; I discussed with patient's mother extensively yesterday 03/24/2021, she requested a repeat CT scan as she feels that patient is responding f/u CT head without contrast 03/24/2021; no acute abnormalities, pronounced diffuse cerebral atrophy. 03/26/2021; awaiting placement, multiple social issues, I called and discussed CT head findings with patient's mother Ms. Santiago She verbalized understanding. Disposition; pending placement 03/30/2021 I resumed service today; Clinically no change, awaiting placement, multiple social issues 03/31/2021; multiple social issues, awaiting placement History Interval history: I have seen and examined the patient at the bedside No new changes, patient is slightly restless Clinically no change Vital signs reviewed Patient is awaiting placement Hospitalist Physical - Constitutional Vitals: Temp Pulse Resp BP Pulse Ox 98.8 F 99 H 20 106/58 97 03/31/21 17:21 03/31/21 17:21 03/31/21 17:21 03/31/21 17:21 03/31/21 17:21 General appearance: Present: mild distress, well-nourished, obese, other (Anoxic encephalopathy, slightly restless) - EENT Eyes: Present: PERRL, EOM intact - Neck Neck: Present: supple, normal ROM - Respiratory Respiratory effort: normal Respiratory: bilateral: diminished, rhonchi, negative: rales, wheezing - Cardiovascular Rhythm: regular Heart Sounds: Present: S1 & S2 - Extremities Extremities: no ischemia, No edema - Abdominal General gastrointestinal: soft, non-tender, non-distended, normal bowel sounds, other (PEG tube in place) - Integumentary Integumentary: Present: clear, warm - Psychiatric Psychiatric: other (Noncommunicative) - Neurologic Neurologic: other (Noncommunicative) HEART Score - HEART Score Age: < 45 Risk factors: 1-2 risk factors - Critical Actions Critical Actions: >7 pts:50-65% risk of adverse cardiac event. Early invasive measures Results - Labs CBC & Chem 7: 03/16/21 04:42 03/16/21 04:42 Labs: Laboratory Last Values WBC 9.4 K/mm3 (4.5-11.0) 03/16/21 04:42 RBC 5.06 M/mm3 (3.65-5.03) H 03/16/21 04:42 Hgb 12.2 gm/dl (10.1-14.3) 03/16/21 04:42 Hgb Comment See scanned result 10/04/20 Unknown Hct 37.6 % (30.3-42.9) 03/16/21 04:42 MCV 74 fl (79-97) L 03/16/21 04:42 MCH 24 pg (28-32) L 03/16/21 04:42 MCHC 33 % (30-34) 03/16/21 04:42 RDW 15.8 % (13.2-15.2) H 03/16/21 04:42 Plt Count 311 K/mm3 (140-440) 03/16/21 04:42 Lymph % (Auto) 33.5 % (13.4-35.0) 03/16/21 04:42 Pickett % (Auto) 8.1 % (0.0-7.3) H 03/16/21 04:42 Eos % (Auto) 1.7 % (0.0-4.3) 03/16/21 04:42 Baso % (Auto) 0.5 % (0.0-1.8) 03/16/21 04:42 Lymph # (Auto) 3.1 K/mm3 (1.2-5.4) 03/16/21 04:42 Pickett # (Auto) 0.8 K/mm3 (0.0-0.8) 03/16/21 04:42 Eos # (Auto) 0.2 K/mm3 (0.0-0.4) 03/16/21 04:42 Baso # (Auto) 0.0 K/mm3 (0.0-0.1) 03/16/21 04:42 Add Manual Diff Complete 02/09/21 10:59 Total Counted 100 02/09/21 10:59 Seg Neutrophils % 56.2 % (40.0-70.0) 03/16/21 04:42 Seg Neuts % (Manual) 58.0 % (40.0-70.0) 02/09/21 10:59 Band Neutrophils % 2.0 % 10/15/20 05:50 Lymphocytes % (Manual) 29.0 % (13.4-35.0) 02/09/21 10:59 Reactive Lymphs % (Man) 1.0 % 10/02/20 12:18 Monocytes % (Manual) 13.0 % (0.0-7.3) H 02/09/21 10:59 Eosinophils % (Manual) 1.0 % (0.0-4.3) 10/29/20 07:56 Myelocytes % 2.0 % 10/02/20 13:05 Metamyelocytes % 1.0 % 10/14/20 04:00 Nucleated RBC % Not Reportable 02/09/21 10:59 Seg Neutrophils # 5.3 K/mm3 (1.8-7.7) 03/16/21 04:42 Seg Neutrophils # Man 3.7 K/mm3 (1.8-7.7) 02/09/21 10:59 Band Neutrophils # 0.0 K/mm3 02/09/21 10:59 Lymphocytes # (Manual) 1.8 K/mm3 (1.2-5.4) 02/09/21 10:59 Abs React Lymphs (Man) 0.0 K/mm3 02/09/21 10:59 Monocytes # (Manual) 0.8 K/mm3 (0.0-0.8) 02/09/21 10:59 Eosinophils # (Manual) 0.0 K/mm3 (0.0-0.4) 02/09/21 10:59 Basophils # (Manual) 0.0 K/mm3 (0.0-0.1) 02/09/21 10:59 Metamyelocytes # 0.0 K/mm3 02/09/21 10:59 Myelocytes # 0.0 K/mm3 02/09/21 10:59 Promyelocytes # 0.0 K/mm3 02/09/21 10:59 Blast Cells # 0.0 K/mm3 02/09/21 10:59 WBC Morphology Not Reportable 02/09/21 10:59 Hypersegmented Neuts Not Reportable 02/09/21 10:59 Hyposegmented Neuts Not Reportable 02/09/21 10:59 Hypogranular Neuts Not Reportable 02/09/21 10:59 Smudge Cells Not Reportable 02/09/21 10:59 Toxic Granulation Not Reportable 02/09/21 10:59 Toxic Vacuolation Not Reportable 02/09/21 10:59 Dohle Bodies Not Reportable 02/09/21 10:59 Pelger-Huet Anomaly Not Reportable 02/09/21 10:59 Ester Rods Not Reportable 02/09/21 10:59 Platelet Estimate Consistent w auto 02/09/21 10:59 Clumped Platelets Not Reportable 02/09/21 10:59 Plt Clumps, EDTA Not Reportable 02/09/21 10:59 Large Platelets Few 02/09/21 10:59 Giant Platelets Not Reportable 02/09/21 10:59 Platelet Satelliting Not Reportable 02/09/21 10:59 Plt Morphology Comment Not Reportable 02/09/21 10:59 RBC Morphology Not Reportable 02/09/21 10:59 Dimorphic RBCs Not Reportable 02/09/21 10:59 Polychromasia Not Reportable 02/09/21 10:59 Hypochromasia 1+ 04/27/21 10:59 Poikilocytosis Not Reportable 02/09/21 10:59 Anisocytosis Not Reportable 02/09/21 10:59 Microcytosis Not Reportable 02/09/21 10:59 Macrocytosis Not Reportable 02/09/21 10:59 Spherocytes Not Reportable 02/09/21 10:59 Pappenheimer Bodies Not Reportable 02/09/21 10:59 Sickle Cells Not Reportable 02/09/21 10:59 Target Cells Not Reportable 02/09/21 10:59 Tear Drop Cells Not Reportable 02/09/21 10:59 Ovalocytes Not Reportable 02/09/21 10:59 Stomatocytes Few 10/14/20 04:00 Helmet Cells Not Reportable 02/09/21 10:59 Burk-[place] Bodies Not Reportable 02/09/21 10:59 Brandywine Rings Not Reportable 02/09/21 10:59 Antoine Cells Not Reportable 02/09/21 10:59 Bite Cells Not Reportable 02/09/21 10:59 Crenated Cell Not Reportable 02/09/21 10:59 Elliptocytes Not Reportable 02/09/21 10:59 Acanthocytes (Spur) Not Reportable 02/09/21 10:59 Rouleaux Not Reportable 02/09/21 10:59 Hemoglobin C Crystals Not Reportable 02/09/21 10:59 Schistocytes Not Reportable 02/09/21 10:59 Malaria parasites Not Reportable 02/09/21 10:59 Sickle Cell Solubility See scanned result 10/04/20 Unknown Hemoglobin A See scanned result 10/04/20 Unknown Hemoglobin A2 See scanned result 10/04/20 Unknown Hemoglobin A2 Prime See scanned result 10/04/20 Unknown Hemoglobin C See scanned result 10/04/20 Unknown Hemoglobin D See scanned result 10/04/20 Unknown Hemoglobin E See scanned result 10/04/20 Unknown Hgb F Diffential Stain See scanned result 10/04/20 Unknown Hemoglobin F Quant See scanned result 10/04/20 Unknown Hemoglobin G See scanned result 10/04/20 Unknown Hemoglobin S See scanned result 10/04/20 Unknown Hemoglobin O-Lynndyl See scanned result 10/04/20 Unknown Hemoglobin [place] See scanned result 10/04/20 Unknown Hemoglobin Analilia See scanned result 10/04/20 Unknown Variant Hemoglobin See scanned result 10/04/20 Unknown Abnorm Hgb IEF Confirm See scanned result 10/04/20 Unknown Hemoglobin Interpret See scanned result 10/04/20 Unknown Hemoglobinopathy Note See scanned result 10/04/20 Unknown Sharad Bodies Not Reportable 02/09/21 10:59 Hem Pathologist Commnt No 02/09/21 10:59 PT 13.6 Sec. (12.2-14.9) 10/21/20 13:54 INR 1.06 (0.87-1.13) 10/21/20 13:54 APTT 31.6 Sec. (24.2-36.6) 10/03/20 00:40 Fibrinogen 336 mg/dl (211-480) 10/04/20 10:00 D-Dimer 1974.47 ng/mlDDU (0-234) H 11/11/20 13:50 ABG pH 7.459 pH Units (7.350-7.450) H 10/26/20 10:30 POC ABG pCO2 20.7 mmHg (32.0-48.0) L 10/13/20 07:18 ABG pCO2 32.4 mm Hg 10/26/20 10:30 POC ABG pO2 137.9 mmHg (83-108) H 10/13/20 07:18 ABG pO2 112.2 mm Hg (80.0-90.0) H 10/26/20 10:30 POC ABG HCO3 14.8 10/13/20 07:18 ABG HCO3 22.5 mmol/L (20.0-26.0) 10/26/20 10:30 ABG O2 Saturation 98.2 % (95.0-99.0) 10/26/20 10:30 ABG O2 Content 18.5 (0.0-44) 10/26/20 10:30 POC ABG Base Excess -6.9 10/13/20 07:18 ABG Base Excess -0.6 mmol/L (-2.0-3.0) 10/26/20 10:30 ABG Hemoglobin 13.5 gm/dl (12.0-16.0) 10/26/20 10:30 ABG Oxyhemoglobin 98.3 (94-98) H 10/13/20 07:18 ABG Carboxyhemoglobin 1.3 % (0.0-5.0) 10/26/20 10:30 ABG Methemoglobin 0.5 % (0.0-1.5) 10/26/20 10:30 ABG Sodium 135.9 mmol/L (136.0-145.0) L 10/13/20 07:18 ABG Potassium 3.7 mmol/L (3.40-4.50) 10/13/20 07:18 ABG Chloride 111.0 mmol/L (98-107) H 10/13/20 07:18 ABG Glucose 109 mg/dL (65-95) H 10/13/20 07:18 VBG pH 6.949 (7.320-7.420) L* 10/02/20 Unknown Oxyhemoglobin 96.5 % (95.0-99.0) 10/26/20 10:30 Carboxyhemoglobin 0.3 (0.5-1.5) L 10/13/20 07:18 FiO2 25 % 10/26/20 10:30 Sodium 140 mmol/L (137-145) 03/16/21 04:42 Potassium 3.9 mmol/L (3.6-5.0) 03/16/21 04:42 Chloride 103.1 mmol/L (98-107) 03/16/21 04:42 Carbon Dioxide 25 mmol/L (22-30) 03/16/21 04:42 Anion Gap 16 mmol/L 03/16/21 04:42 BUN 12 mg/dL (7-17) 03/16/21 04:42 Creatinine 0.5 mg/dL (0.6-1.2) L 03/16/21 04:42 Estimated GFR > 60 ml/min 03/16/21 04:42 BUN/Creatinine Ratio 24 % 03/16/21 04:42 Glucose 95 mg/dL (65-100) 03/16/21 04:42 POC Glucose 109 mg/dL (70-105) H 03/31/21 11:29 Random Insulin 43.2 uIU/mL (<=19.6) H 11/02/20 19:19 Proinsulin See scanned result 11/02/20 19:19 C-Peptide 6.23 ng/mL (0.80-3.85) H 11/02/20 19:19 Lactic Acid 1.90 mmol/L (0.7-2.0) 10/04/20 22:00 Uric Acid 7.5 mg/dL (3.5-7.6) 10/02/20 13:05 Calcium 9.6 mg/dL (8.4-10.2) 03/16/21 04:42 Ionized Calcium 4.4 mg/dL (4.8-5.6) L 10/07/20 21:00 Phosphorus 4.60 mg/dL (2.5-4.5) H 11/13/20 10:05 Magnesium 2.10 mg/dL (1.7-2.3) 11/13/20 10:05 Total Bilirubin 0.80 mg/dL (0.1-1.2) 03/04/21 04:46 AST 51 units/L (5-40) H 03/04/21 04:46 ALT 53 units/L (7-56) 03/04/21 04:46 Alkaline Phosphatase 117 units/L (35-129) 03/04/21 04:46 Lactate Dehydrogenase 769 units/L (91-180) H 10/02/20 13:05 C-Reactive Protein 0.70 mg/dL (0.00-1.30) 11/11/20 13:50 NT-Pro-B Natriuret Pep 2788 pg/mL (0-450) H 10/04/20 10:00 Total Protein 8.4 g/dL (6.3-8.2) H 03/04/21 04:46 Albumin 4.2 g/dL (3.9-5) 03/04/21 04:46 Albumin/Globulin Ratio 1.0 % 03/04/21 04:46 Procalcitonin < 0.05 ng/mL (<0.15) 03/02/21 02:30 Arterial Blood Glucose 109 mg/dL (65-95) H 10/13/20 07:18 Arterial Blood Ionized Calcium 4.6 mg/dL (4.6-5.3) 10/13/20 07:18 Urine Color Yellow (Yellow) 01/25/21 09:51 Urine Turbidity Cloudy (Clear) 01/25/21 09:51 Urine pH 7.0 (5.0-7.0) 01/25/21 09:51 Ur Specific [place] 1.011 (1.003-1.030) 01/25/21 09:51 Urine Protein <15 mg/dl mg/dL (Negative) 01/25/21 09:51 Urine Glucose (UA) Neg mg/dL (Negative) 01/25/21 09:51 Urine Ketones Neg mg/dL (Negative) 01/25/21 09:51 Urine Blood Neg (Negative) 01/25/21 09:51 Urine Nitrite Neg (Negative) 01/25/21 09:51 Urine Bilirubin Neg (Negative) 01/25/21 09:51 Urine Urobilinogen < 2.0 mg/dL (<2.0) 01/25/21 09:51 Ur Leukocyte Esterase Neg (Negative) 01/25/21 09:51 Urine WBC (Auto) 6.0 /HPF (0.0-6.0) 01/25/21 09:51 Urine RBC (Auto) 3.0 /HPF (0.0-6.0) 01/25/21 09:51 U Epithel Cells (Auto) < 1.0 /HPF (0-13.0) 01/25/21 09:51 Urine Bacteria (Auto) 1+ /HPF (Negative) 01/18/21 08:47 Urine WBC Clumps 3+ /HPF 11/11/20 13:50 Calcium Oxalate Crystal Few 11/11/20 13:50 Urine Mucus Few /HPF 01/25/21 09:51 Urine Yeast (Budding) 2+ /HPF 01/25/21 09:51 Vancomycin Trough 12.6 ug/mL (5.0-20.0) 10/21/20 13:54 Random Vancomycin 10.7 ug/mL (0-40.0) 10/16/20 13:09 Phenytoin 5.7 ug/mL (10.0-20.0) L 10/13/20 07:00 C. difficile Tox (PCR) Positive (Negative) 10/16/20 10:22 Coronavirus (PCR) Negative (Negative) 10/08/20 14:15 Blood Type O POSITIVE 10/02/20 12:50 Antibody Screen Negative 10/02/20 12:50 Crossmatch See Detail 10/02/20 12:50 - Diagnostic Impressions Diagnostic Impressions: Echocardiogram 10/03/20 13:42 Transthoracic Echocardiogram Indication: S/P Cardiac Arrest R/O Cardiomyopathy BP: 133/71 Conclusions *Global left ventricular systolic function is normal. *The estimated ejection fraction is 60-65%. *There is trace of mitral regurgitation. *The right 0heart chambers are both slightly dilated. *There is mild tricuspid regurgitation. *There is mild-moderate pulmonary hypertension. *The right ventricular systolic pressure is calculated at 44 mmHg. *The study quality is technically difficult. Findings Procedure Info: The study quality is technically difficult. The study is technically limited due to patient body habitus. The study was technically limited due to the patient's inability to lay in the left lateral decubitus position. Left Ventricle: The left ventricular chamber size is normal. There is no left ventricular hypertrophy. Global left ventricular systolic function is normal. The estimated ejection fraction is 60-65%. Left Atrium: The left atrial chamber size is normal. Right Ventricle: The right ventricle is slightly dilated. Right Atrium: The right atrium is mildly dilated. Aortic Valve: The aortic valve leaflets are mildly thickened. There is no evidence of aortic regurgitation. There is no evidence of aortic stenosis. Mitral Valve: The mitral valve leaflets are mildly thickened. There is trace of mitral regurgitation. There is no evidence of mitral stenosis. Tricuspid Valve: There is mild tricuspid regurgitation. The right ventricular systolic pressure is calculated at 44 mmHg. There is evidence of mild pulmonary hypertension. Pulmonic Valve: There is trace pulmonic regurgitation. Pericardium: There is no pericardial effusion. Aorta: There is no dilatation of the ascending aorta. There is no dilatation of the aortic root. Venous: The inferior vena cava is dilated. Measurements Chambers 2D Name Value Normal Range IVSd (2D) 1 cm (0.6 - 1.1) LVPWd (2D) 1.01 cm (0.6 - 1.1) LVIDd (2D) 4.58 cm (3.7 - 5.6) LVIDs (2D) 3.17 cm (2 - 3.8) LV FS (2D) 30.93 % - EF Teichholz (2D) 58.66 % - Ao root diameter (2D) 2.94 cm (2 - 3.7) Volumes/Mass Name Value Normal Range LA ESV SP 4CH (A/L) 72.82 ml - LA ESV SP 2CH (A/L) 66.86 ml - LA ESV BP (A/L) 74.49 ml - LA ESV SP 4CH (MOD) 71.03 ml - LA ESV SP 2CH (MOD) 64.3 ml - LV EDV SP 4CH (MOD) 98.82 ml - LV ESV SP 4CH (MOD) 24.8 ml - EF SP 4CH (MOD) 74.9 % - LV EDV SP 2CH (MOD) 86.1 ml - LV ESV SP 2CH (MOD) 36.93 ml - EF SP 2CH (MOD) 57.11 % - LV EDV BP 94.4 ml - LV ESV BP 32.66 ml - BP EF (MOD) 65.4 % - Diastolic/Systolic Function Name Value Normal Range MV E-wave Vmax 1.04 m/sec - MV deceleration time 160.46 msec - MV A-wave Vmax 0.92 m/sec - MV E:A ratio 1.14 ratio - Aortic Valve Name Value Normal Range AV Vmax 2.12 m/sec - AV VTI 22.37 cm - AV peak gradient 17.95 mmHg - AV mean gradient 7.29 mmHg - LVOT diameter 2.01 cm - LVOT Vmax 1.8 m/sec - LVOT VTI 27.17 cm - LVOT peak gradient 12.91 mmHg - LVOT mean gradient 6.83 mmHg - SV LVOT 86.42 ml - ANITA (continuity Vmax) 2.7 cm2 - ANITA (continuity VTI) 3.86 cm2 - Ascending Ao 3.18 cm - Tricuspid Valve Name Value Normal Range TV E-wave Vmax 0.88 m/sec - TR Vmax 3.01 m/sec - TR peak gradient 36.27 mmHg - RAP 8 mmHg - RVSP 44 mmHg - IVC diameter 2.65 cm (1.2 - 2.3) Pulmonic Valve/Qp:Qs Name Value Normal Range PV Vmax 1.22 m/sec - PV peak gradient 5.91 mmHg - RVOT Vmax 0.87 m/sec - RVOT VTI 13.32 cm - RVOT peak gradient 3 mmHg - PV acceleration time 110.37 msec - [place]/IV: Voiding Method Incontinent IV Catheter Type [Right Foot] INT / Saline Lock IV Catheter Type [Left Forearm Peripheral IV ] IV Catheter Type [Left Wrist] INT / Saline Lock IV Catheter Type [Right Hand] INT / Saline Lock IV Catheter Type [Right INT / Saline Lock Antecubital] IV Catheter Type [Right Upper Mid-line arm] IV Catheter Type [Left Triple Lumen Cath Internal Jugular] IV Catheter Type [Left Hand] Peripheral IV IV Catheter Type [Left Peripheral IV Antecubital] Active Medications - Current Medications Current Medications: Generic Name Dose Route Start Last Admin Trade Name Freq PRN Reason Stop Dose Admin Acetaminophen 650 mg 10/05/20 16:34 03/30/21 22:09 Acetaminophen 325 Mg/10.15 Ml Oral Liqd Unit Dose FEEDTUBE 650 mg Q6H PRN Administration Non Cardiac Pain or Temp>100.5 Albuterol 2.5 mg 11/05/20 13:03 11/06/20 13:04 Albuterol 2.5 Mg/3 Ml Nebu IH 2.5 mg Q4HRT PRN Administration Shortness Of Breath Alprazolam 0.25 mg 01/20/21 13:33 03/31/21 11:36 Alprazolam 0.25 Mg Tab PO 0.25 mg Q8H PRN Administration Anxiety Lipase/Protease/Amylase 1 each 10/05/20 11:09 Lipase 10,500/Protease 25,000/Amylase 43,750 (Units) Dr Barakat FEEDTUBE PRN PRN For Clogged Feeding Tube Enoxaparin Sodium 40 mg 10/22/20 10:00 03/31/21 11:19 Enoxaparin 40 Mg/0.4 Ml Inj SUB-Q 40 mg DAILY ERINN Administration Protocol Famotidine 20 mg 10/07/20 10:00 03/31/21 11:19 Famotidine 20 Mg Tab PO 20 mg BID ERINN Administration Hydrophilic Ointment 1 applic 01/03/21 13:00 02/16/21 09:56 Lip Therapy Vaseline TP 1 applic DIRECT PRN Administration Dry Lips Dextrose 1,000 mls @ 30 mls/hr 01/03/21 12:00 02/11/21 18:44 D5w IV 30 mls/hr DIRECT ERINN Administration Metoprolol Tartrate 50 mg 02/02/21 16:01 03/31/21 11:18 Metoprolol Tartrate 25 Mg Tab PO 50 mg BID ERINN Administration Morphine Sulfate 2 mg 01/20/21 13:33 Morphine 2 Mg/1 Ml Inj IV Q4H PRN Pain, Moderate (4-6) Ondansetron HCl 4 mg 02/10/21 11:38 02/10/21 13:18 Ondansetron 4 Mg/2 Ml Inj IV 4 mg Q4H PRN Administration Nausea And Vomiting Simple Syrup 15 ml 10/05/20 11:09 Simple Syrup 15 Ml FEEDTUBE PRN PRN Hypoglycemia Simple Syrup 30 ml 10/05/20 11:09 03/23/21 06:11 Simple Syrup 15 Ml FEEDTUBE 30 ml PRN PRN Administration Hypoglycemia Sodium Bicarbonate 325 mg 10/05/20 11:09 12/16/20 08:19 Sodium Bicarbonate 325 Mg Tab FEEDTUBE 325 mg PRN PRN Administration For Clogged Feeding Tube Nutrition/Malnutrition Assess - Dietary Evaluation Nutrition/Malnutrition Findings: Nutrition Notes Start: 10/04/20 11:13 Freq: Status: Active Protocol: Document 03/31/21 14:05 MEY (Rec: 03/31/21 14:10 MEY [id number]) Nutrition Notes Initial or Follow up Reassessment Other Pertinent Diagnosis s/p cardiac arrest x 2, anoxic brain injury Current Diet TF - Promote at 65ml/hr Labs/Tests Reviewed Pertinent Medications Reviewed Height 5 ft 8 in Weight 91 kg [place] Body Weight (kg) 63.63 BMI 30.4 Weight change and time frame wt fluctuations Weight Status Overweight Subjective/Other Information Pt tolerating TF at goal rate, per RN. Pt continues to wait placement. Percent of energy/protein needs met: 100%/100% Burn Absent Trauma Absent GI Symptoms None Difficulty In Swallowing,Chewing Current % PO Negligible Minimum of two criteria No #1 Nutrition Diagnosis Inadequate oral intake Diagnosis Progress(for reassessment Continues documentation) Is patient on ventilator? No Is Patient Ambulatory and/or Out of Bed No REE-([facility]-confined to bed) 2003.180 Kcal/Kg value to use for calculation 17 Approximate Energy Requirements Using 1547 kcal/Kg Calculation Used for Recommendations [facility] or Additional Notes Pro needs 0.8-1g/k-89g/ day Fluid needs 1ml/kcal Nutrition Intervention Nutrition Support: Continue Promote at 65 mL/hr Flush 100 ml q4h Kcal 1,560 Protein (gm) 98 Fluid (mL) 1,309 Goal #1 TF tolerance Goal #2 TF to meet at least 75% estimated energy and protein needs. Follow-Up By: 04/07/21 Additional Comments FU for stable TF
--- NOTE | 2021-04-01 09:52 | Progress Note ---
Assessment and Plan Assessment and plan: Patient is agitated, not responding to conversation Vital signs noted --Acute hypoxic respiratory failure: Tracheostomy on T-piece , saturating well Supportive care, Pulmonary critical following --s/p Cardiac arrest x2 on admission and on 10/07 ACLS protocol followed by revival, Echo showed preserved Ef --Anoxic brain injury, Developed following cardiac arrest, patient does not follow commands Restless and agitated continue supportive care f/u CT head without contrast 03/24/2021 [as requested by the family]; no acute abnormality Pronounced diffuse cerebral atrophy --Shock-resolved now awaiting placement, s/p pressor support --DIC (disseminated intravascular coagulation) vs HELLP syndrome , Resolved --Possible Eclampsia/HELLP Syndrome, Resolved --ADOLPH-resolved, Stable --Sepsis 2/2 UTI s/p cefepime to cover possible pseudomonas as sputum is also growing GN rods till 01/04/21 Previous urine culture grew pansensitive ecoli Blood cultures from 12/27-no growth --Hypernatremia, resolved, cont free water with TF --DVT prophylaxis Patient presented with DIC No anticoagulants Overall prognosis extremely poor. DC planning per case management, awaiting placement Multiple social issue Brief history and hospital course; 30 year old -[place] Citizen female CHE 10/25/20 at 36w5d who presents with seizures in triage on 10/02/20. Pt was not able to provide history but per pt's , she presented to the hospital to return a 24 hour urine specimen for analysis. She then suddenly reported that she did not feel good. She was taken to labor and delivery and shortly after arrival, she began seizing. During this time, a code met was called because the patient became hypoxic. She was then noted to be without a pulse. Chest compressions were started immediately, and the patient was emergently taken to the operating room for delivery of the fetus. Off note, This patient has had care at [facility] with comanagement by [facility] since 11 wks complicated by ADHD, morbid obesity, generalized anxiety disorder, panic attacks, chronic narcotic use, fibromyalgia, GERD, Irritable Bowel Syndrome, Migraines, h/o endometrial ablation and ovarian vein embolization, genital herpes, insomnia, LGA fetus, nausea and vomiting, polyhydramnios, quad screen positive for Down's Syndrome, and previous x 3. She was GBS negative. 10/02/21 11:30: Pt brought to L&D triage for evaluation of possible labor. Pt accompanied by her spouse. Pt spouse poor historian; unable to obtain history- allergies at this time. Pt taken from registration to triage area via WC. Pt unresponsive, actively seizing with snorous respirations. client service supervisor, Kassy, called and requesting assistance. 11:35: Multiple staff at bedside. Pt 02 sat 67% on nonrebreather, unable to read BP at this time. Yifan Theodore CRNA, at bedside for intubation and assistance with IV insertion. INT attempt by multiple RNs unsuccessful at this time. 11:42: Pt being bagged by KORIN, 02% 79%. No pulse palpated, compressions started at this time; bharati young called and Dr. Newberry preparing OR for emergent c/s. 11:44: Continued compressions on stretcher while transporting pt to OR 1. Pt being bagged with jaw thrust manuever in place by KORIN Stringer student. 11:45: Arrival to OR 1. Dr. Newberry and Dr. Portillo present for emergent c/s. Code team arrived for continued care. patient revived and c/s done Patient has been bleeding from C/s site followed by supracervical hysterectomy for severe bleeding Patient transfused multiple units of PRBC, Patient in DIC. Transferred to the ICU 10/03. Patient seen and examined at bedside this morning. Patient is nonresponsive and mechanically ventilated. On pressors. Labs reviewed-has leukocytosis, anemia, thrombocytopenia, ADOLPH and lactic acidosis. Started on IV antibiotics to cover possible sepsis secondary to DIC. Hematology oncology recommendations appreciated-needs additional cryoprecipitate and FFP. Monitor D-dimer, fibrinogen and frequent labs. Nephrology consulted for lactic acidosis and ADOLPH. 10/04. Remains mechanically ventilated. Kevin antibiotics. Labs shows improved acidosis - lactic acid 3.5. Hb drop noted. Getting transfused 2 units PRBCs. Platelet count is ~40k. Continue to monitor labs closely. Critical care team on board. 10/05; xray reviewed, concerning for multifocal infilrate, likely underlying Pneumonia, will add ID consult to assist with management of this critically ill patient, start tube feed, closely monitor renal system 10/06: Resumed care, remains on mechanical ventilation. No active bleeding, H&H stable. Continue to monitor CBC and BMP. Continue IV antibiotic for underlying pneumonia. Follow critical care and ID recommendation. 10/07: Remains on mechanical ventilation. No active bleeding, H&H stable. Critical care following, wean off ventilation as tolerated. 10/08: Patient had another cardiac arrest last night. Remains on mechanical ventilation, update family. Continue supportive care -poor prognosis 10/09: Called patient mother and discussed about patient care and management. Answered all question to best of my knowledge and family satisfaction. Patient remains on mechanical ventilation, cardiac arrest x2 so far. Critically sick, poor prognosis 10/10: remains on mechanical ventilation. h/h stable, no active bleeding. monitor CBC/BMP 10/11: WBC trended up with diarrhea, started on vancomycin po. remains on MV, off pressor, tolerating TF 10/12: remains on MV, off pressor, tolerating TF. called family for update but unable to reach, could not leave message as it was full. cont supportive care, wean off vent as tolerated. 10/13/2020; patient is on mechanical ventilation, tolerating tube feeding. Patient has labored breathing. Neuro was consulted and recommend MRI. Patient is on Precedex. Rectal tube in place. 10/14/2020; patient is on mechanical ventilation, Precedex. Patient had fever and blood culture ordered. Patient is on IV vancomycin per ID recommendation. Neuro consulted and recommend MRI. Continue to monitor. Prognosis is guarded. 10/15/2020; patient is on mechanical ventilation, Precedex. Patient had fever and blood culture ordered. Patient is on IV vancomycin per ID recommendation. Neuro consulted and recommend MRI. Continue to monitor. Prognosis is guarded. 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 12/06/20; anoxic brain injury. Awaiting placement. 12/07/2020; anoxic brain injury, awaiting placement. 12/09/2020; anoxic brain injury, awaiting placement. 12/10/2020; patient had episodes of fever overnight. CBC, BMP, blood culture, UA and chest x-ray ordered, will follow and manage accordingly. Urinalysis is suggestive of UTI and I put the patient on ceftriaxone, order urine culture. Chest x-ray is normal. 12/11/2020; patient is on ceftriaxone day 2 for UTI. We will continue to follow urine culture. 12/12/2020. Day #3 of Rocephin for UTI. We will continue for 2 more days while she is here. Present UTI. 12/13/2020. Day #4 of Rocephin for UTI. Patient remains on 50% with tracheostomy. Remains unresponsive with evidence of anoxic encephalopathy unable to make needs known. 12/14/2020. Day #5 of Rocephin for UTI completed today. Remains encephalopathic unable to make needs known. Remains on 50% unable to decrease oxygen via tracheostomy. Overall prognosis remains extremely poor. 3: Continue to monitor. Stop and monitor antibiotics at this time. Continue to wean oxygen as tolerated. Wean oxygen as tolerated. Case management working on placement. 12/16: Continue supportive care aspiration precautions. Awaiting placement discussion. Monitor fever curve. Prognosis remains poor no evidence of neurological recovery as of today 12/17: Continue supportive care, check labs and chest xray. Still monitor off antibiotics. Monitor Sodium level 12/18: Patient remains with intermittent low grade fever, reviewed EEG from September again, consistent for Ischemic Hypoxic Encephalopathy, patient with decorticating posturing type presentation. Will discuss with child support officer to optimize diet so we can discontinue D5. CXR with no abnormality. Discussed extensively with the nursing staff at bedside CXR IMPRESSION: 1. No acute findings. 12/19: No clinical change 12/20: No clinical change, now off abx, monitor, discussed her medications with our pharmacist I believe that her posture and rigidity is likely from underlying anoxic encephalopathy. Continue to monitor and await placement decision. Co ntinue aggressive suctioning. Plan discussed in detail with the nursing staff 12/21: Continue supportive care. Will give 500 cc bolus of fluid today to replace insensible losses. Tachycardia appears to be improving. Blood pressure precludes adjusting cardiac meds. Still awaiting placement from case management. Plan discussed in detail with the nursing staff 12/22. Continue support supportive care. Tracheostomy and PEG in place. Remains nonresponsive. Awaiting placement. 12/23. Continue support supportive care. Tracheostomy and PEG in place. Remains nonresponsive. Awaiting placement. Remains tachycardic. Decrease dose of lasix. Will try low dose metoprolol. Monitor BP closely 12/24. Continue support supportive care. Tracheostomy and PEG in place. Remains nonresponsive. Awaiting placement. Heart rate slightly better. Continue to monitor BP closely 12/25. Continue support supportive care. Tracheostomy and PEG in place. Remains nonresponsive. Awaiting placement. 12/26. Continue support supportive care. Tracheostomy and PEG in place. Remains nonresponsive. Awaiting placement 12/27. Continue support supportive care. Tracheostomy and PEG in place. Remains nonresponsive. Awaiting placement 12/28. Had fever yesterday. Blood culture drawn. UA - UTI - started on a ntibiotics. Now tracheal aspirate is growing GN rods. 12/29: Continue IV antibiotics, continue supportive care. Since admission patient has shown minimal or no chance of neurological recovery. Need 24/ assistance. Currently on trach and PEG, nonverbal. Waiting on SNF placement. Discussed with rn case management today. 12/30: Continue IV antibiotics for UTI, continue supportive care. Pending plac ement 12/31: continue supportive care. continue supportive care. Pending placement 01/01: continue supportive care. Pending placement. cont Iv abx for UTI till 01/04 01/02: Continue supportive care, pending placement. Sodium level slightly elevated, will start hypotonic fluid. Continue antibiotics till 01/04 01/03; cont hypotonic fluid, increase free water with TF for hypernatremia, follow BMP. cont supportive care. pending placement. cont cefepime. recx blood 01/04: resolved hyponatremia, cont supportive care, pending placement. Last day of supplement today. 01/05: Continue supportive care, pending placement. Monitor H&H and fever curve off antibiotic. 01/06; monitor off abx, suction as needed, Continue supportive care, pending placement. 01/07: Discharge pending on placement, vitals stable. Continue supportive care 01/08: Discharge pending on placement, vitals stable. Continue supportive care. stop lasix, increase metoprolol to 25mg BID for ST. 01/09 patient resting with eyes closed. Opens eyes to tactile stimulus, has a blink reflex, does not follow simple commands, has a T-collar / G-tube Lab results reviewed, low-grade fever, 01/10 Eyes open, does not follow simple commands, no acute events overnight 01/11 no acute events overnight Waiting for placement 01/12 No acute events overnight. Patient awaiting for placement 01/13. No new issues. Awaiting placement 01/14. No new issues. Awaiting placement. 01/15. No new issues. Awaiting placement. 01/16. No new issues. Patient remain stable. Awaiting placement. Check maintenance labs. 01/17. Routine maintenance labs were ordered and are still pending. Await placement. 01/18. Patient with low-grade fever past 24-48 hrs. WBC within normal limits. Check chest x-ray, urinalysis and consider blood cultures. Continue tracheostomy care, secretion control and airway management. Patient currently with PEG and tube feedings at 60 cc an hour. Nutritional support and aspiration precautions. 01/19. Temperature 100.7 overnight. Continue to monitor closely. Continue tracheostomy care, secretion control and airway management. Patient currently with PEG and tube feedings at 60 cc an hour. Nutritional support and aspiration precautions. 01/20. Continue to monitor closely. Continue tracheostomy care, secretion control and airway management. Patient currently with PEG and tube feedings at 60 cc an hour. Nutritional support and aspiration precautions. 01/21. Afebrile overnight. Continue to monitor closely. Continue tracheostomy care, secretion control and airway management. Patient currently with PEG and tube feedings at 60 cc an hour. Nutritional support and aspiration precautions. 01/22. Continue to monitor closely. Continue tracheostomy care, secretion control and airway management. Patient currently with PEG and tube feedings at 60 cc an hour. Nutritional support and aspiration precautions. 01/23. Continue tracheostomy care, secretion control and airway management. Patient currently with PEG and tube feedings at 60 cc an hour. Nutritional support and aspiration precautions. Will get routine labs tomorrow. 01/24. Labs reviewed. No abnormalities. Continue tracheostomy care, secretion control and airway management. Patient currently with PEG and tube feedings at 60 cc an hour. Nutritional support and aspiration precautions. 01/25. Temp 100.6. More sleepy today. Will get chest xray, blood culture, urinalysis, sputum cultures. Will start on empirical abx. 01/26: Vitals noted, slightly tachycardic. Follow culture work-up, continue supportive care. 01/27: Spiking low-grade temp, negative UA, sputum culture and recent blood cultures also negative. Continue to monitor off antibiotics. Continue supportive care. Pending placement. 01/28: cont to spike low grade temp, negative UA, sputum culture and recent blood cultures also negative. Continue to monitor off antibiotics. will order fpr sinus xry. Continue supportive care. Pending placement. 01/29: Continue to follow clinically, intermittently spiking low-grade temp, all recent culture work is negative, negative UA, normal respiratory jaylan 1 tracheal aspirate. Vitals noted and currently stable. Pending placement 01/30: Clinically unchanged, continue to monitor vitals, continue supportive care s. Pending placement. Discussed plan of care with RN at the bedside. 01/31 - TODATE: cont supportive care, pending placement. monitor vitals carefully. Discussed with family at the bedside. 02/06. Patient afebrile today. Continue trach care. Secretions stable today. Culture data negative so far. Awaiting placement. 02/07. Awaiting placement awaiting family member to evaluate papers. Continue trach care secretions stable. Pending placement 02/09: Intermittent fever, ?drug related, will check cxr and also labs. No new complaints. 02/10: Patient's trach dislodged today. Nevertheless respiratory status is intact attempt to reinsert was unsuccessful will monitor discussed with nursing staff to pay close attention to the patient. Considering that this was not a planned decannulation I will start the patient on continuous pulse ox until full evaluation was done by pulmonary. 02/13/2021 Vital signs stable Unresponsive secondary to anoxic encephalopathy Awaiting placement 02/14/2021 Awaiting placement 02/15/2021 Anoxic encephalopathy Awaiting placement 02/16/2021 Anoxic encephalopathy Awaiting placement 02/17/2021 Anoxic encephalopathy awaiting placement 02/18/2021 Anoxic encephalopathy awaiting placement 02/19/2021 Anoxic encephalopathy awaiting placement 02/20/2021 Anoxic encephalopathy awaiting placement 02/21/2021 Anoxic encephalopathy awaiting placement 02/22/2021 Anoxic encephalopathy awaiting placement 02/23/2021 Anoxic encephalopathy awaiting placement 02/24/2021 Anoxic encephalopathy awaiting placement 02/25/2021 Anoxic encephalopathy waiting for placement 02/26 Awaiting placement 02/27. Awaiting placement 02/28. No change in medical condition. Awaiting placement 03/01. No medical changes noted. Awaiting placement 03/01. No medical changes noted. Awaiting placement 03/02. Had temperature more than 100 Fahrenheit. Ordered labs and chest x-ray. Labs reviewed. No pna and no leukocytosis. Procalcitonin negative. Blood cultures negative so far. Continue to monitor for now 03/03 - 03/11. No overnight events. Awaiting placement. 03/12-03/15. Awaiting placement. Continue trach care, secretion control and airway management. Gastrostomy tube care. Continue tube feedings per dietitian. Mobility protocols for pressure ulcer prophylaxis. Check routine labs 03/16/2021; Awaiting placement. Patient is on PEG tube feeding. Saturating well on room air. Patient is mildly tachycardic. Pending placement. 03/17/2021; Awaiting placement. Patient is on PEG tube feeding. Saturating well on room air. Patient is mildly tachycardic. Pending placement. 03/18/2021; awaiting placement. 03/19/2021; awaiting placement. 03/20/2021; awaiting placement. 03/21/21; awaiting placement. 03/22/2021; Awaiting placement. Patient is on PEG tube feeding. Saturating well on room air. Patient is mildly tachycardic. Pending placement. 03/23/2021; multiple social issues, awaiting LTAC placement 03/24/2021; pending placement. Clinically no change, I discussed with patient's mother extensively, she had numerous questions answered all of them She requested a repeat CT head as she noticed significant change in her daughters level of consciousness. Will check CT head without contrast 03/25/2021; I discussed with patient's mother extensively yesterday 03/24/2021, she requested a repeat CT scan as she feels that patient is responding f/u CT head without contrast 03/24/2021; no acute abnormalities, pronounced diffuse cerebral atrophy. 03/26/2021; awaiting placement, multiple social issues, I called and discussed CT head findings with patient's mother Ms. Santiago She verbalized understanding. Disposition; pending placement 03/30/2021 I resumed service today; Clinically no change, awaiting placement, multiple social issues 03/31/2021; multiple social issues, awaiting placement 04/01/2021; clinically no change, social issues, awaiting placement History Interval history: I have seen and examined the patient at the bedside today Patient is alert and awake noncommunicative, slightly restless Vital signs noted Hospitalist Physical - Constitutional Vitals: Temp Pulse Resp BP Pulse Ox 98.9 F 91 H 20 114/77 99 04/01/21 06:16 04/01/21 06:16 04/01/21 06:16 04/01/21 06:16 04/01/21 06:16 General appearance: Present: mild distress, well-nourished, obese, other (Anoxic encephalopathy, slightly restless) - EENT Eyes: Present: PERRL, EOM intact - Neck Neck: Present: supple, normal ROM, other (Tracheostomy ) - Respiratory Respiratory effort: normal Respiratory: bilateral: diminished, rhonchi, negative: rales, wheezing - Cardiovascular Rhythm: regular Heart Sounds: Present: S1 & S2 - Extremities Extremities: no ischemia Extremity abnormal: edema - Abdominal General gastrointestinal: soft, non-tender, non-distended, normal bowel sounds - Integumentary Integumentary: Present: clear, warm - Psychiatric Psychiatric: other (Noncommunicative) - Neurologic Neurologic: other (Noncommunicative) HEART Score - HEART Score Age: < 45 Risk factors: 1-2 risk factors - Critical Actions Critical Actions: >7 pts:50-65% risk of adverse cardiac event. Early invasive measures Results - Labs CBC & Chem 7: 03/16/21 04:42 03/16/21 04:42 Labs: Laboratory Last Values WBC 9.4 K/mm3 (4.5-11.0) 03/16/21 04:42 RBC 5.06 M/mm3 (3.65-5.03) H 03/16/21 04:42 Hgb 12.2 gm/dl (10.1-14.3) 03/16/21 04:42 Hgb Comment See scanned result 10/04/20 Unknown Hct 37.6 % (30.3-42.9) 03/16/21 04:42 MCV 74 fl (79-97) L 03/16/21 04:42 MCH 24 pg (28-32) L 03/16/21 04:42 MCHC 33 % (30-34) 03/16/21 04:42 RDW 15.8 % (13.2-15.2) H 03/16/21 04:42 Plt Count 311 K/mm3 (140-440) 03/16/21 04:42 Lymph % (Auto) 33.5 % (13.4-35.0) 03/16/21 04:42 Gilmer % (Auto) 8.1 % (0.0-7.3) H 03/16/21 04:42 Eos % (Auto) 1.7 % (0.0-4.3) 03/16/21 04:42 Baso % (Auto) 0.5 % (0.0-1.8) 03/16/21 04:42 Lymph # (Auto) 3.1 K/mm3 (1.2-5.4) 03/16/21 04:42 Gilmer # (Auto) 0.8 K/mm3 (0.0-0.8) 03/16/21 04:42 Eos # (Auto) 0.2 K/mm3 (0.0-0.4) 03/16/21 04:42 Baso # (Auto) 0.0 K/mm3 (0.0-0.1) 03/16/21 04:42 Add Manual Diff Complete 02/09/21 10:59 Total Counted 100 02/09/21 10:59 Seg Neutrophils % 56.2 % (40.0-70.0) 03/16/21 04:42 Seg Neuts % (Manual) 58.0 % (40.0-70.0) 02/09/21 10:59 Band Neutrophils % 2.0 % 10/15/20 05:50 Lymphocytes % (Manual) 29.0 % (13.4-35.0) 02/09/21 10:59 Reactive Lymphs % (Man) 1.0 % 10/02/20 12:18 Monocytes % (Manual) 13.0 % (0.0-7.3) H 02/09/21 10:59 Eosinophils % (Manual) 1.0 % (0.0-4.3) 10/29/20 07:56 Myelocytes % 2.0 % 10/02/20 13:05 Metamyelocytes % 1.0 % 10/14/20 04:00 Nucleated RBC % Not Reportable 02/09/21 10:59 Seg Neutrophils # 5.3 K/mm3 (1.8-7.7) 03/16/21 04:42 Seg Neutrophils # Man 3.7 K/mm3 (1.8-7.7) 02/09/21 10:59 Band Neutrophils # 0.0 K/mm3 02/09/21 10:59 Lymphocytes # (Manual) 1.8 K/mm3 (1.2-5.4) 02/09/21 10:59 Abs React Lymphs (Man) 0.0 K/mm3 02/09/21 10:59 Monocytes # (Manual) 0.8 K/mm3 (0.0-0.8) 02/09/21 10:59 Eosinophils # (Manual) 0.0 K/mm3 (0.0-0.4) 02/09/21 10:59 Basophils # (Manual) 0.0 K/mm3 (0.0-0.1) 02/09/21 10:59 Metamyelocytes # 0.0 K/mm3 02/09/21 10:59 Myelocytes # 0.0 K/mm3 02/09/21 10:59 Promyelocytes # 0.0 K/mm3 02/09/21 10:59 Blast Cells # 0.0 K/mm3 02/09/21 10:59 WBC Morphology Not Reportable 02/09/21 10:59 Hypersegmented Neuts Not Reportable 02/09/21 10:59 Hyposegmented Neuts Not Reportable 02/09/21 10:59 Hypogranular Neuts Not Reportable 02/09/21 10:59 Smudge Cells Not Reportable 02/09/21 10:59 Toxic Granulation Not Reportable 02/09/21 10:59 Toxic Vacuolation Not Reportable 02/09/21 10:59 Dohle Bodies Not Reportable 02/09/21 10:59 Pelger-Huet Anomaly Not Reportable 02/09/21 10:59 Ester Rods Not Reportable 02/09/21 10:59 Platelet Estimate Consistent w auto 02/09/21 10:59 Clumped Platelets Not Reportable 02/09/21 10:59 Plt Clumps, EDTA Not Reportable 02/09/21 10:59 Large Platelets Few 02/09/21 10:59 Giant Platelets Not Reportable 02/09/21 10:59 Platelet Satelliting Not Reportable 02/09/21 10:59 Plt Morphology Comment Not Reportable 02/09/21 10:59 RBC Morphology Not Reportable 02/09/21 10:59 Dimorphic RBCs Not Reportable 02/09/21 10:59 Polychromasia Not Reportable 02/09/21 10:59 Hypochromasia 1+ 02/09/21 10:59 Poikilocytosis Not Reportable 02/09/21 10:59 Anisocytosis Not Reportable 02/09/21 10:59 Microcytosis Not Reportable 02/09/21 10:59 Macrocytosis Not Reportable 02/09/21 10:59 Spherocytes Not Reportable 02/09/21 10:59 Pappenheimer Bodies Not Reportable 02/09/21 10:59 Sickle Cells Not Reportable 02/09/21 10:59 Target Cells Not Reportable 02/09/21 10:59 Tear Drop Cells Not Reportable 02/09/21 10:59 Ovalocytes Not Reportable 02/09/21 10:59 Stomatocytes Few 10/14/20 04:00 Helmet Cells Not Reportable 02/09/21 10:59 Burk-[place] Bodies Not Reportable 02/09/21 10:59 Rueter Rings Not Reportable 02/09/21 10:59 Antoine Cells Not Reportable 02/09/21 10:59 Bite Cells Not Reportable 02/09/21 10:59 Crenated Cell Not Reportable 02/09/21 10:59 Elliptocytes Not Reportable 02/09/21 10:59 Acanthocytes (Spur) Not Reportable 02/09/21 10:59 Rouleaux Not Reportable 02/09/21 10:59 Hemoglobin C Crystals Not Reportable 02/09/21 10:59 Schistocytes Not Reportable 02/09/21 10:59 Malaria parasites Not Reportable 02/09/21 10:59 Sickle Cell Solubility See scanned result 10/04/20 Unknown Hemoglobin A See scanned result 10/04/20 Unknown Hemoglobin A2 See scanned result 10/04/20 Unknown Hemoglobin A2 Prime See scanned result 10/04/20 Unknown Hemoglobin C See scanned result 10/04/20 Unknown Hemoglobin D See scanned result 10/04/20 Unknown Hemoglobin E See scanned result 10/04/20 Unknown Hgb F Diffential Stain See scanned result 10/04/20 Unknown Hemoglobin F Quant See scanned result 10/04/20 Unknown Hemoglobin G See scanned result 10/04/20 Unknown Hemoglobin S See scanned result 10/04/20 Unknown Hemoglobin [place] See scanned result 10/04/20 Unknown Hemoglobin [place] See scanned result 10/04/20 Unknown Hemoglobin [place] See scanned result 10/04/20 Unknown Variant Hemoglobin See scanned result 10/04/20 Unknown Abnorm Hgb IEF Confirm See scanned result 10/04/20 Unknown Hemoglobin Interpret See scanned result 10/04/20 Unknown Hemoglobinopathy Note See scanned result 10/04/20 Unknown Sharad Bodies Not Reportable 02/09/21 10:59 Hem Pathologist Commnt No 02/09/21 10:59 PT 13.6 Sec. (12.2-14.9) 10/21/20 13:54 INR 1.06 (0.87-1.13) 10/21/20 13:54 APTT 31.6 Sec. (24.2-36.6) 10/03/20 00:40 Fibrinogen 336 mg/dl (211-480) 10/04/20 10:00 D-Dimer 1974.47 ng/mlDDU (0-234) H 11/11/20 13:50 ABG pH 7.459 pH Units (7.350-7.450) H 10/26/20 10:30 POC ABG pCO2 20.7 mmHg (32.0-48.0) L 10/13/20 07:18 ABG pCO2 32.4 mm Hg 10/26/20 10:30 POC ABG pO2 137.9 mmHg (83-108) H 10/13/20 07:18 ABG pO2 112.2 mm Hg (80.0-90.0) H 10/26/20 10:30 POC ABG HCO3 14.8 10/13/20 07:18 ABG HCO3 22.5 mmol/L (20.0-26.0) 10/26/20 10:30 ABG O2 Saturation 98.2 % (95.0-99.0) 10/26/20 10:30 ABG O2 Content 18.5 (0.0-44) 10/26/20 10:30 POC ABG Base Excess -6.9 10/13/20 07:18 ABG Base Excess -0.6 mmol/L (-2.0-3.0) 10/26/20 10:30 ABG Hemoglobin 13.5 gm/dl (12.0-16.0) 10/26/20 10:30 ABG Oxyhemoglobin 98.3 (94-98) H 10/13/20 07:18 ABG Carboxyhemoglobin 1.3 % (0.0-5.0) 10/26/20 10:30 ABG Methemoglobin 0.5 % (0.0-1.5) 10/26/20 10:30 ABG Sodium 135.9 mmol/L (136.0-145.0) L 10/13/20 07:18 ABG Potassium 3.7 mmol/L (3.40-4.50) 10/13/20 07:18 ABG Chloride 111.0 mmol/L (98-107) H 10/13/20 07:18 ABG Glucose 109 mg/dL (65-95) H 10/13/20 07:18 VBG pH 6.949 (7.320-7.420) L* 10/02/20 Unknown Oxyhemoglobin 96.5 % (95.0-99.0) 10/26/20 10:30 Carboxyhemoglobin 0.3 (0.5-1.5) L 10/13/20 07:18 FiO2 25 % 10/26/20 10:30 Sodium 140 mmol/L (137-145) 03/16/21 04:42 Potassium 3.9 mmol/L (3.6-5.0) 03/16/21 04:42 Chloride 103.1 mmol/L (98-107) 03/16/21 04:42 Carbon Dioxide 25 mmol/L (22-30) 03/16/21 04:42 Anion Gap 16 mmol/L 03/16/21 04:42 BUN 12 mg/dL (7-17) 03/16/21 04:42 Creatinine 0.5 mg/dL (0.6-1.2) L 03/16/21 04:42 Estimated GFR > 60 ml/min 03/16/21 04:42 BUN/Creatinine Ratio 24 % 03/16/21 04:42 Glucose 95 mg/dL (65-100) 03/16/21 04:42 POC Glucose 96 mg/dL (70-105) 04/01/21 06:33 Random Insulin 43.2 uIU/mL (<=19.6) H 11/02/20 19:19 Proinsulin See scanned result 11/02/20 19:19 C-Peptide 6.23 ng/mL (0.80-3.85) H 11/02/20 19:19 Lactic Acid 1.90 mmol/L (0.7-2.0) 10/04/20 22:00 Uric Acid 7.5 mg/dL (3.5-7.6) 10/02/20 13:05 Calcium 9.6 mg/dL (8.4-10.2) 03/16/21 04:42 Ionized Calcium 4.4 mg/dL (4.8-5.6) L 10/07/20 21:00 Phosphorus 4.60 mg/dL (2.5-4.5) H 11/13/20 10:05 Magnesium 2.10 mg/dL (1.7-2.3) 11/13/20 10:05 Total Bilirubin 0.80 mg/dL (0.1-1.2) 03/04/21 04:46 AST 51 units/L (5-40) H 03/04/21 04:46 ALT 53 units/L (7-56) 03/04/21 04:46 Alkaline Phosphatase 117 units/L (35-129) 03/04/21 04:46 Lactate Dehydrogenase 769 units/L (91-180) H 10/02/20 13:05 C-Reactive Protein 0.70 mg/dL (0.00-1.30) 11/11/20 13:50 NT-Pro-B Natriuret Pep 2788 pg/mL (0-450) H 10/04/20 10:00 Total Protein 8.4 g/dL (6.3-8.2) H 03/04/21 04:46 Albumin 4.2 g/dL (3.9-5) 03/04/21 04:46 Albumin/Globulin Ratio 1.0 % 03/04/21 04:46 Procalcitonin < 0.05 ng/mL (<0.15) 03/02/21 02:30 Arterial Blood Glucose 109 mg/dL (65-95) H 10/13/20 07:18 Arterial Blood Ionized Calcium 4.6 mg/dL (4.6-5.3) 10/13/20 07:18 Urine Color Yellow (Yellow) 01/25/21 09:51 Urine Turbidity Cloudy (Clear) 01/25/21 09:51 Urine pH 7.0 (5.0-7.0) 01/25/21 09:51 Ur Specific [place] 1.011 (1.003-1.030) 01/25/21 09:51 Urine Protein <15 mg/dl mg/dL (Negative) 01/25/21 09:51 Urine Glucose (UA) Neg mg/dL (Negative) 01/25/21 09:51 Urine Ketones Neg mg/dL (Negative) 01/25/21 09:51 Urine Blood Neg (Negative) 01/25/21 09:51 Urine Nitrite Neg (Negative) 01/25/21 09:51 Urine Bilirubin Neg (Negative) 01/25/21 09:51 Urine Urobilinogen < 2.0 mg/dL (<2.0) 01/25/21 09:51 Ur Leukocyte Esterase Neg (Negative) 01/25/21 09:51 Urine WBC (Auto) 6.0 /HPF (0.0-6.0) 01/25/21 09:51 Urine RBC (Auto) 3.0 /HPF (0.0-6.0) 01/25/21 09:51 U Epithel Cells (Auto) < 1.0 /HPF (0-13.0) 01/25/21 09:51 Urine Bacteria (Auto) 1+ /HPF (Negative) 01/18/21 08:47 Urine WBC Clumps 3+ /HPF 11/11/20 13:50 Calcium Oxalate Crystal Few 11/11/20 13:50 Urine Mucus Few /HPF 01/25/21 09:51 Urine Yeast (Budding) 2+ /HPF 01/25/21 09:51 Vancomycin Trough 12.6 ug/mL (5.0-20.0) 10/21/20 13:54 Random Vancomycin 10.7 ug/mL (0-40.0) 10/16/20 13:09 Phenytoin 5.7 ug/mL (10.0-20.0) L 10/13/20 07:00 C. difficile Tox (PCR) Positive (Negative) 10/16/20 10:22 Coronavirus (PCR) Negative (Negative) 10/08/20 14:15 Blood Type O POSITIVE 10/02/20 12:50 Antibody Screen Negative 10/02/20 12:50 Crossmatch See Detail 10/02/20 12:50 - Diagnostic Impressions Diagnostic Impressions: Echocardiogram 10/03/20 13:42 Transthoracic Echocardiogram Indication: S/P Cardiac Arrest R/O Cardiomyopathy BP: 133/71 Conclusions *Global left ventricular systolic function is normal. *The estimated ejection fraction is 60-65%. *There is trace of mitral regurgitation. *The right 0heart chambers are both slightly dilated. *There is mild tricuspid regurgitation. *There is mild-moderate pulmonary hypertension. *The right ventricular systolic pressure is calculated at 44 mmHg. *The study quality is technically difficult. Findings Procedure Info: The study quality is technically difficult. The study is technically limited due to patient body habitus. The study was technically limited due to the patient's inability to lay in the left lateral decubitus position. Left Ventricle: The left ventricular chamber size is normal. There is no left ventricular hypertrophy. Global left ventricular systolic function is normal. The estimated ejection fraction is 60-65%. Left Atrium: The left atrial chamber size is normal. Right Ventricle: The right ventricle is slightly dilated. Right Atrium: The right atrium is mildly dilated. Aortic Valve: The aortic valve leaflets are mildly thickened. There is no evidence of aortic regurgitation. There is no evidence of aortic stenosis. Mitral Valve: The mitral valve leaflets are mildly thickened. There is trace of mitral regurgitation. There is no evidence of mitral stenosis. Tricuspid Valve: There is mild tricuspid regurgitation. The right ventricular systolic pressure is calculated at 44 mmHg. There is evidence of mild pulmonary hypertension. Pulmonic Valve: There is trace pulmonic regurgitation. Pericardium: There is no pericardial effusion. Aorta: There is no dilatation of the ascending aorta. There is no dilatation of the aortic root. Venous: The inferior vena cava is dilated. Measurements Chambers 2D Name Value Normal Range IVSd (2D) 1 cm (0.6 - 1.1) LVPWd (2D) 1.01 cm (0.6 - 1.1) LVIDd (2D) 4.58 cm (3.7 - 5.6) LVIDs (2D) 3.17 cm (2 - 3.8) LV FS (2D) 30.93 % - EF Teichholz (2D) 58.66 % - Ao root diameter (2D) 2.94 cm (2 - 3.7) Volumes/Mass Name Value Normal Range LA ESV SP 4CH (A/L) 72.82 ml - LA ESV SP 2CH (A/L) 66.86 ml - LA ESV BP (A/L) 74.49 ml - LA ESV SP 4CH (MOD) 71.03 ml - LA ESV SP 2CH (MOD) 64.3 ml - LV EDV SP 4CH (MOD) 98.82 ml - LV ESV SP 4CH (MOD) 24.8 ml - EF SP 4CH (MOD) 74.9 % - LV EDV SP 2CH (MOD) 86.1 ml - LV ESV SP 2CH (MOD) 36.93 ml - EF SP 2CH (MOD) 57.11 % - LV EDV BP 94.4 ml - LV ESV BP 32.66 ml - BP EF (MOD) 65.4 % - Diastolic/Systolic Function Name Value Normal Range MV E-wave Vmax 1.04 m/sec - MV deceleration time 160.46 msec - MV A-wave Vmax 0.92 m/sec - MV E:A ratio 1.14 ratio - Aortic Valve Name Value Normal Range AV Vmax 2.12 m/sec - AV VTI 22.37 cm - AV peak gradient 17.95 mmHg - AV mean gradient 7.29 mmHg - LVOT diameter 2.01 cm - LVOT Vmax 1.8 m/sec - LVOT VTI 27.17 cm - LVOT peak gradient 12.91 mmHg - LVOT mean gradient 6.83 mmHg - SV LVOT 86.42 ml - ANITA (continuity Vmax) 2.7 cm2 - ANITA (continuity VTI) 3.86 cm2 - Ascending Ao 3.18 cm - Tricuspid Valve Name Value Normal Range TV E-wave Vmax 0.88 m/sec - TR Vmax 3.01 m/sec - TR peak gradient 36.27 mmHg - RAP 8 mmHg - RVSP 44 mmHg - IVC diameter 2.65 cm (1.2 - 2.3) Pulmonic Valve/Qp:Qs Name Value Normal Range PV Vmax 1.22 m/sec - PV peak gradient 5.91 mmHg - RVOT Vmax 0.87 m/sec - RVOT VTI 13.32 cm - RVOT peak gradient 3 mmHg - PV acceleration time 110.37 msec - [place]/IV: Voiding Method Incontinent IV Catheter Type [Right Foot] INT / Saline Lock IV Catheter Type [Left Forearm Peripheral IV ] IV Catheter Type [Left Wrist] INT / Saline Lock IV Catheter Type [Right Hand] INT / Saline Lock IV Catheter Type [Right INT / Saline Lock Antecubital] IV Catheter Type [Right Upper Mid-line arm] IV Catheter Type [Left Triple Lumen Cath Internal Jugular] IV Catheter Type [Left Hand] Peripheral IV IV Catheter Type [Left Peripheral IV Antecubital] Active Medications - Current Medications Current Medications: Generic Name Dose Route Start Last Admin Trade Name Freq PRN Reason Stop Dose Admin Acetaminophen 650 mg 10/05/20 16:34 03/30/21 22:09 Acetaminophen 325 Mg/10.15 Ml Oral Liqd Unit Dose FEEDTUBE 650 mg Q6H PRN Administration Non Cardiac Pain or Temp>100.5 Albuterol 2.5 mg 11/05/20 13:03 11/06/20 13:04 Albuterol 2.5 Mg/3 Ml Nebu IH 2.5 mg Q4HRT PRN Administration Shortness Of Breath Alprazolam 0.25 mg 01/20/21 13:33 03/31/21 11:36 Alprazolam 0.25 Mg Tab PO 0.25 mg Q8H PRN Administration Anxiety Lipase/Protease/Amylase 1 each 10/05/20 11:09 Lipase 10,500/Protease 25,000/Amylase 43,750 (Units) Dr Barakat FEEDTUBE PRN PRN For Clogged Feeding Tube Enoxaparin Sodium 40 mg 10/22/20 10:00 03/31/21 11:19 Enoxaparin 40 Mg/0.4 Ml Inj SUB-Q 40 mg DAILY ERINN Administration Protocol Famotidine 20 mg 10/07/20 10:00 03/31/21 22:10 Famotidine 20 Mg Tab PO 20 mg BID ERINN Administration Hydrophilic Ointment 1 applic 01/03/21 13:00 02/16/21 09:56 Lip Therapy Vaseline TP 1 applic DIRECT PRN Administration Dry Lips Dextrose 1,000 mls @ 30 mls/hr 01/03/21 12:00 02/11/21 18:44 D5w IV 30 mls/hr DIRECT ERINN Administration Metoprolol Tartrate 50 mg 02/02/21 16:01 03/31/21 22:10 Metoprolol Tartrate 25 Mg Tab PO 50 mg BID ERINN Administration Morphine Sulfate 2 mg 01/20/21 13:33 Morphine 2 Mg/1 Ml Inj IV Q4H PRN Pain, Moderate (4-6) Ondansetron HCl 4 mg 02/10/21 11:38 02/10/21 13:18 Ondansetron 4 Mg/2 Ml Inj IV 4 mg Q4H PRN Administration Nausea And Vomiting Simple Syrup 15 ml 10/05/20 11:09 Simple Syrup 15 Ml FEEDTUBE PRN PRN Hypoglycemia Simple Syrup 30 ml 10/05/20 11:09 03/23/21 06:11 Simple Syrup 15 Ml FEEDTUBE 30 ml PRN PRN Administration Hypoglycemia Sodium Bicarbonate 325 mg 10/05/20 11:09 12/16/20 08:19 Sodium Bicarbonate 325 Mg Tab FEEDTUBE 325 mg PRN PRN Administration For Clogged Feeding Tube Nutrition/Malnutrition Assess - Dietary Evaluation Nutrition/Malnutrition Findings: Nutrition Notes Start: 10/04/20 11:13 Freq: Status: Active Protocol: Document 03/31/21 14:05 MEY (Rec: 03/31/21 14:10 MEY [id number]) Nutrition Notes Initial or Follow up Reassessment Other Pertinent Diagnosis s/p cardiac arrest x 2, anoxic brain injury Current Diet TF - Promote at 65ml/hr Labs/Tests Reviewed Pertinent Medications Reviewed Height 5 ft 8 in Weight 91 kg [place] Body Weight (kg) 63.63 BMI 30.4 Weight change and time frame wt fluctuations Weight Status Overweight Subjective/Other Information Pt tolerating TF at goal rate, per RN. Pt continues to wait placement. Percent of energy/protein needs met: 100%/100% Burn Absent Trauma Absent GI Symptoms None Difficulty In Swallowing,Chewing Current % PO Negligible Minimum of two criteria No #1 Nutrition Diagnosis Inadequate oral intake Diagnosis Progress(for reassessment Continues documentation) Is patient on ventilator? No Is Patient Ambulatory and/or Out of Bed No REE-([facility]-confined to bed) 2003.180 Kcal/Kg value to use for calculation 17 Approximate Energy Requirements Using 1547 kcal/Kg Calculation Used for Recommendations [facility] Additional Notes Pro needs 0.8-1g/k-89g/ day Fluid needs 1ml/kcal Nutrition Intervention Nutrition Support: Continue Promote at 65 mL/hr Flush 100 ml q4h Kcal 1,560 Protein (gm) 98 Fluid (mL) 1,309 Goal #1 TF tolerance Goal #2 TF to meet at least 75% estimated energy and protein needs. Follow-Up By: 04/07/21 Additional Comments FU for stable TF
[2021-04-01] MEDS: METOPROLOL TARTRATE 25 MG TAB PO SCH ×2 (13:38→22:31)
[2021-04-01] MEDS: ALPRAZolam 0.25 MG TAB PO PRN (13:47)
[2021-04-01] MEDS: FAMOTIDINE 20 MG TAB PO SCH ×2 (13:48→22:31)
[2021-04-01] MEDS: ENOXAPARIN 40 MG/0.4 ML INJ SUB-Q SCH (13:48)
[2021-04-01] MEDS: ACETAMINOPHEN 325 MG/10.15 ML ORAL LIQD UNIT DOSE FEEDTUBE PRN (22:29)
--- NOTE | 2021-04-02 08:28 | Progress Note ---
Assessment and Plan Assessment and plan: Patient is coming today, not responding to conversation Vital signs noted --Acute hypoxic respiratory failure: Tracheostomy on T-piece , saturating well Supportive care, Pulmonary critical following --s/p Cardiac arrest x2 on admission and on 10/07 ACLS protocol followed by revival, Echo showed preserved Ef --Anoxic brain injury, Developed following cardiac arrest, patient does not follow commands Restless and agitated continue supportive care f/u CT head without contrast 03/24/2021 [as requested by the family]; no acute abnormality Pronounced diffuse cerebral atrophy --Shock-resolved now awaiting placement, s/p pressor support --DIC (disseminated intravascular coagulation) vs HELLP syndrome , Resolved --Possible Eclampsia/HELLP Syndrome, Resolved --ADOLPH-resolved, Stable --Sepsis 2/2 UTI s/p cefepime to cover possible pseudomonas as sputum is also growing GN rods till 01/04/21 Previous urine culture grew pansensitive ecoli Blood cultures from 12/27-no growth --Hypernatremia, resolved, cont free water with TF --DVT prophylaxis Patient presented with DIC No anticoagulants Overall prognosis extremely poor. DC planning per case management, awaiting placement Multiple social issue Brief history and hospital course; 30 year old -Central African female CHE 10/25/20 at 36w5d who presents with seizures in triage on 10/02/20. Pt was not able to provide history but per pt's , she presented to the hospital to return a 24 hour urine specimen for analysis. She then suddenly reported that she did not feel good. She was taken to labor and delivery and shortly after arrival, she began seizing. During this time, a code met was called because the patient became hypoxic. She was then noted to be without a pulse. Chest compressions were started immediately, and the patient was emergently taken to the operating room for delivery of the fetus. Off note, This patient has had care at [facility] with comanagement by [facility] since 11 wks complicated by ADHD, morbid obesity, generalized anxiety disorder, panic attacks, chronic narcotic use, fibromyalgia, GERD, Irritable Bowel Syndrome, Migraines, h/o endometrial ablation and ovarian vein embolization, genital herpes, insomnia, LGA fetus, nausea and vomiting, polyhydramnios, quad screen positive for Down's Syndrome, and previous x 3. She was GBS negative. 10/02/2020-03/15/2021 daily hospital course reviewed 03/16/2021; Awaiting placement. Patient is on PEG tube feeding. Saturating well on room air. Patient is mildly tachycardic. Pending placement. 03/17/2021; Awaiting placement. Patient is on PEG tube feeding. Saturating well on room air. Patient is mildly tachycardic. Pending placement. 03/18/2021; awaiting placement. 03/19/2021; awaiting placement. 03/20/2021; awaiting placement. 03/21/21; awaiting placement. 03/22/2021; Awaiting placement. Patient is on PEG tube feeding. Saturating well on room air. Patient is mildly tachycardic. Pending placement. 03/23/2021; multiple social issues, awaiting LTAC placement 03/24/2021; pending placement. Clinically no change, I discussed with patient's mother extensively, she had numerous questions answered all of them She requested a repeat CT head as she noticed significant change in her daughters level of consciousness. Will check CT head without contrast 03/25/2021; I discussed with patient's mother extensively yesterday 03/24/2021, she requested a repeat CT scan as she feels that patient is responding f/u CT head without contrast 03/24/2021; no acute abnormalities, pronounced diffuse cerebral atrophy. 03/26/2021; awaiting placement, multiple social issues, I called and discussed CT head findings with patient's mother Ms. Santiago She verbalized understanding. Disposition; pending placement 03/30/2021 I resumed service today; Clinically no change, awaiting placement, multiple social issues 03/31/2021; multiple social issues, awaiting placement 04/01/2021; clinically no change, social issues, awaiting placement 04/02/2021; patient response to some sound by moving her head, not purposeful Did not respond to communication, awaiting placement History Interval history: I have seen and examined the patient in her room at the bedside Patient's chart and medications reviewed Patient moves at sound stimuli Noncommunicative Cannot follow commands Vital signs noted Patient is status post cardiac arrest with anoxic brain injury Multiple social issues Awaiting placement Hospitalist Physical - Constitutional Vitals: Temp Pulse Resp BP Pulse Ox 97.3 F L 89 16 99/66 96 04/02/21 03:10 04/02/21 03:10 04/02/21 03:10 04/02/21 03:10 04/02/21 03:10 General appearance: Present: mild distress, well-nourished, obese, other (Anoxic encephalopathy, slightly restless) - EENT Eyes: Present: PERRL, EOM intact - Neck Neck: Present: supple, normal ROM - Respiratory Respiratory effort: normal Respiratory: bilateral: diminished, negative: rales, rhonchi, wheezing - Cardiovascular Rhythm: regular Heart Sounds: Present: S1 & S2 - Extremities Extremities: no ischemia, No edema - Abdominal General gastrointestinal: soft, non-tender, non-distended, normal bowel sounds, other (PEG tube in place) - Integumentary Integumentary: Present: clear, warm - Psychiatric Psychiatric: other (Noncommunicative) - Neurologic Neurologic: other (Spontaneous opening eyes ,unresponsive and noncommunicative) HEART Score - HEART Score Age: < 45 Risk factors: 1-2 risk factors - Critical Actions Critical Actions: >7 pts:50-65% risk of adverse cardiac event. Early invasive measures Results - Labs CBC & Chem 7: 03/16/21 04:42 03/16/21 04:42 Labs: Laboratory Last Values WBC 9.4 K/mm3 (4.5-11.0) 03/16/21 04:42 RBC 5.06 M/mm3 (3.65-5.03) H 03/16/21 04:42 Hgb 12.2 gm/dl (10.1-14.3) 03/16/21 04:42 Hgb Comment See scanned result 10/04/20 Unknown Hct 37.6 % (30.3-42.9) 03/16/21 04:42 MCV 74 fl (79-97) L 03/16/21 04:42 MCH 24 pg (28-32) L 03/16/21 04:42 MCHC 33 % (30-34) 03/16/21 04:42 RDW 15.8 % (13.2-15.2) H 03/16/21 04:42 Plt Count 311 K/mm3 (140-440) 03/16/21 04:42 Lymph % (Auto) 33.5 % (13.4-35.0) 03/16/21 04:42 Isabela % (Auto) 8.1 % (0.0-7.3) H 03/16/21 04:42 Eos % (Auto) 1.7 % (0.0-4.3) 03/16/21 04:42 Baso % (Auto) 0.5 % (0.0-1.8) 03/16/21 04:42 Lymph # (Auto) 3.1 K/mm3 (1.2-5.4) 03/16/21 04:42 Isabela # (Auto) 0.8 K/mm3 (0.0-0.8) 03/16/21 04:42 Eos # (Auto) 0.2 K/mm3 (0.0-0.4) 03/16/21 04:42 Baso # (Auto) 0.0 K/mm3 (0.0-0.1) 03/16/21 04:42 Add Manual Diff Complete 02/09/21 10:59 Total Counted 100 02/09/21 10:59 Seg Neutrophils % 56.2 % (40.0-70.0) 03/16/21 04:42 Seg Neuts % (Manual) 58.0 % (40.0-70.0) 02/09/21 10:59 Band Neutrophils % 2.0 % 10/15/20 05:50 Lymphocytes % (Manual) 29.0 % (13.4-35.0) 02/09/21 10:59 Reactive Lymphs % (Man) 1.0 % 10/02/20 12:18 Monocytes % (Manual) 13.0 % (0.0-7.3) H 02/09/21 10:59 Eosinophils % (Manual) 1.0 % (0.0-4.3) 10/29/20 07:56 Myelocytes % 2.0 % 10/02/20 13:05 Metamyelocytes % 1.0 % 10/14/20 04:00 Nucleated RBC % Not Reportable 02/09/21 10:59 Seg Neutrophils # 5.3 K/mm3 (1.8-7.7) 03/16/21 04:42 Seg Neutrophils # Man 3.7 K/mm3 (1.8-7.7) 02/09/21 10:59 Band Neutrophils # 0.0 K/mm3 02/09/21 10:59 Lymphocytes # (Manual) 1.8 K/mm3 (1.2-5.4) 02/09/21 10:59 Abs React Lymphs (Man) 0.0 K/mm3 02/09/21 10:59 Monocytes # (Manual) 0.8 K/mm3 (0.0-0.8) 02/09/21 10:59 Eosinophils # (Manual) 0.0 K/mm3 (0.0-0.4) 02/09/21 10:59 Basophils # (Manual) 0.0 K/mm3 (0.0-0.1) 02/09/21 10:59 Metamyelocytes # 0.0 K/mm3 02/09/21 10:59 Myelocytes # 0.0 K/mm3 02/09/21 10:59 Promyelocytes # 0.0 K/mm3 02/09/21 10:59 Blast Cells # 0.0 K/mm3 02/09/21 10:59 WBC Morphology Not Reportable 02/09/21 10:59 Hypersegmented Neuts Not Reportable 02/09/21 10:59 Hyposegmented Neuts Not Reportable 02/09/21 10:59 Hypogranular Neuts Not Reportable 02/09/21 10:59 Smudge Cells Not Reportable 02/09/21 10:59 Toxic Granulation Not Reportable 02/09/21 10:59 Toxic Vacuolation Not Reportable 02/09/21 10:59 Dohle Bodies Not Reportable 02/09/21 10:59 Pelger-Huet Anomaly Not Reportable 02/09/21 10:59 Ester Rods Not Reportable 02/09/21 10:59 Platelet Estimate Consistent w auto 02/09/21 10:59 Clumped Platelets Not Reportable 02/09/21 10:59 Plt Clumps, EDTA Not Reportable 02/09/21 10:59 Large Platelets Few 02/09/21 10:59 Giant Platelets Not Reportable 02/09/21 10:59 Platelet Satelliting Not Reportable 02/09/21 10:59 Plt Morphology Comment Not Reportable 02/09/21 10:59 RBC Morphology Not Reportable 02/09/21 10:59 Dimorphic RBCs Not Reportable 02/09/21 10:59 Polychromasia Not Reportable 02/09/21 10:59 Hypochromasia 1+ 02/09/21 10:59 Poikilocytosis Not Reportable 02/09/21 10:59 Anisocytosis Not Reportable 02/09/21 10:59 Microcytosis Not Reportable 02/09/21 10:59 Macrocytosis Not Reportable 02/09/21 10:59 Spherocytes Not Reportable 02/09/21 10:59 Pappenheimer Bodies Not Reportable 02/09/21 10:59 Sickle Cells Not Reportable 02/09/21 10:59 Target Cells Not Reportable 02/09/21 10:59 Tear Drop Cells Not Reportable 02/09/21 10:59 Ovalocytes Not Reportable 02/09/21 10:59 Stomatocytes Few 10/14/20 04:00 Helmet Cells Not Reportable 02/09/21 10:59 [place] Bodies Not Reportable 02/09/21 10:59 [place] Rings Not Reportable 02/09/21 10:59 Antoine Cells Not Reportable 02/09/21 10:59 Bite Cells Not Reportable 02/09/21 10:59 Crenated Cell Not Reportable 02/09/21 10:59 Elliptocytes Not Reportable 02/09/21 10:59 Acanthocytes (Spur) Not Reportable 02/09/21 10:59 Rouleaux Not Reportable 02/09/21 10:59 Hemoglobin C Crystals Not Reportable 02/09/21 10:59 Schistocytes Not Reportable 02/09/21 10:59 Malaria parasites Not Reportable 02/09/21 10:59 Sickle Cell Solubility See scanned result 10/04/20 Unknown Hemoglobin A See scanned result 10/04/20 Unknown Hemoglobin A2 See scanned result 10/04/20 Unknown Hemoglobin A2 Prime See scanned result 10/04/20 Unknown Hemoglobin C See scanned result 10/04/20 Unknown Hemoglobin D See scanned result 10/04/20 Unknown Hemoglobin E See scanned result 10/04/20 Unknown Hgb F Diffential Stain See scanned result 10/04/20 Unknown Hemoglobin F Quant See scanned result 10/04/20 Unknown Hemoglobin G See scanned result 10/04/20 Unknown Hemoglobin S See scanned result 10/04/20 Unknown Hemoglobin [place] See scanned result 10/04/20 Unknown Hemoglobin [place] See scanned result 10/04/20 Unknown Hemoglobin Analilia See scanned result 10/04/20 Unknown Variant Hemoglobin See scanned result 10/04/20 Unknown Abnorm Hgb IEF Confirm See scanned result 10/04/20 Unknown Hemoglobin Interpret See scanned result 10/04/20 Unknown Hemoglobinopathy Note See scanned result 10/04/20 Unknown Sharad Bodies Not Reportable 02/09/21 10:59 Hem Pathologist Commnt No 02/09/21 10:59 PT 13.6 Sec. (12.2-14.9) 10/21/20 13:54 INR 1.06 (0.87-1.13) 10/21/20 13:54 APTT 31.6 Sec. (24.2-36.6) 10/03/20 00:40 Fibrinogen 336 mg/dl (211-480) 10/04/20 10:00 D-Dimer 1974.47 ng/mlDDU (0-234) H 11/11/20 13:50 ABG pH 7.459 pH Units (7.350-7.450) H 10/26/20 10:30 POC ABG pCO2 20.7 mmHg (32.0-48.0) L 10/13/20 07:18 ABG pCO2 32.4 mm Hg 10/26/20 10:30 POC ABG pO2 137.9 mmHg (83-108) H 10/13/20 07:18 ABG pO2 112.2 mm Hg (80.0-90.0) H 10/26/20 10:30 POC ABG HCO3 14.8 10/13/20 07:18 ABG HCO3 22.5 mmol/L (20.0-26.0) 10/26/20 10:30 ABG O2 Saturation 98.2 % (95.0-99.0) 10/26/20 10:30 ABG O2 Content 18.5 (0.0-44) 10/26/20 10:30 POC ABG Base Excess -6.9 10/13/20 07:18 ABG Base Excess -0.6 mmol/L (-2.0-3.0) 10/26/20 10:30 ABG Hemoglobin 13.5 gm/dl (12.0-16.0) 10/26/20 10:30 ABG Oxyhemoglobin 98.3 (94-98) H 10/13/20 07:18 ABG Carboxyhemoglobin 1.3 % (0.0-5.0) 10/26/20 10:30 ABG Methemoglobin 0.5 % (0.0-1.5) 10/26/20 10:30 ABG Sodium 135.9 mmol/L (136.0-145.0) L 10/13/20 07:18 ABG Potassium 3.7 mmol/L (3.40-4.50) 10/13/20 07:18 ABG Chloride 111.0 mmol/L (98-107) H 10/13/20 07:18 ABG Glucose 109 mg/dL (65-95) H 10/13/20 07:18 VBG pH 6.949 (7.320-7.420) L* 10/02/20 Unknown Oxyhemoglobin 96.5 % (95.0-99.0) 10/26/20 10:30 Carboxyhemoglobin 0.3 (0.5-1.5) L 10/13/20 07:18 FiO2 25 % 10/26/20 10:30 Sodium 140 mmol/L (137-145) 03/16/21 04:42 Potassium 3.9 mmol/L (3.6-5.0) 03/16/21 04:42 Chloride 103.1 mmol/L (98-107) 03/16/21 04:42 Carbon Dioxide 25 mmol/L (22-30) 03/16/21 04:42 Anion Gap 16 mmol/L 03/16/21 04:42 BUN 12 mg/dL (7-17) 03/16/21 04:42 Creatinine 0.5 mg/dL (0.6-1.2) L 03/16/21 04:42 Estimated GFR > 60 ml/min 03/16/21 04:42 BUN/Creatinine Ratio 24 % 03/16/21 04:42 Glucose 95 mg/dL (65-100) 03/16/21 04:42 POC Glucose 100 mg/dL (70-105) 04/02/21 06:31 Random Insulin 43.2 uIU/mL (<=19.6) H 11/02/20 19:19 Proinsulin See scanned result 11/02/20 19:19 C-Peptide 6.23 ng/mL (0.80-3.85) H 11/02/20 19:19 Lactic Acid 1.90 mmol/L (0.7-2.0) 10/04/20 22:00 Uric Acid 7.5 mg/dL (3.5-7.6) 10/02/20 13:05 Calcium 9.6 mg/dL (8.4-10.2) 03/16/21 04:42 Ionized Calcium 4.4 mg/dL (4.8-5.6) L 10/07/20 21:00 Phosphorus 4.60 mg/dL (2.5-4.5) H 11/13/20 10:05 Magnesium 2.10 mg/dL (1.7-2.3) 11/13/20 10:05 Total Bilirubin 0.80 mg/dL (0.1-1.2) 03/04/21 04:46 AST 51 units/L (5-40) H 03/04/21 04:46 ALT 53 units/L (7-56) 03/04/21 04:46 Alkaline Phosphatase 117 units/L (35-129) 03/04/21 04:46 Lactate Dehydrogenase 769 units/L (91-180) H 10/02/20 13:05 C-Reactive Protein 0.70 mg/dL (0.00-1.30) 11/11/20 13:50 NT-Pro-B Natriuret Pep 2788 pg/mL (0-450) H 10/04/20 10:00 Total Protein 8.4 g/dL (6.3-8.2) H 03/04/21 04:46 Albumin 4.2 g/dL (3.9-5) 03/04/21 04:46 Albumin/Globulin Ratio 1.0 % 03/04/21 04:46 Procalcitonin < 0.05 ng/mL (<0.15) 03/02/21 02:30 Arterial Blood Glucose 109 mg/dL (65-95) H 10/13/20 07:18 Arterial Blood Ionized Calcium 4.6 mg/dL (4.6-5.3) 10/13/20 07:18 Urine Color Yellow (Yellow) 01/25/21 09:51 Urine Turbidity Cloudy (Clear) 01/25/21 09:51 Urine pH 7.0 (5.0-7.0) 01/25/21 09:51 Ur Specific [place] 1.011 (1.003-1.030) 01/25/21 09:51 Urine Protein <15 mg/dl mg/dL (Negative) 01/25/21 09:51 Urine Glucose (UA) Neg mg/dL (Negative) 01/25/21 09:51 Urine Ketones Neg mg/dL (Negative) 01/25/21 09:51 Urine Blood Neg (Negative) 01/25/21 09:51 Urine Nitrite Neg (Negative) 01/25/21 09:51 Urine Bilirubin Neg (Negative) 01/25/21 09:51 Urine Urobilinogen < 2.0 mg/dL (<2.0) 01/25/21 09:51 Ur Leukocyte Esterase Neg (Negative) 01/25/21 09:51 Urine WBC (Auto) 6.0 /HPF (0.0-6.0) 01/25/21 09:51 Urine RBC (Auto) 3.0 /HPF (0.0-6.0) 01/25/21 09:51 U Epithel Cells (Auto) < 1.0 /HPF (0-13.0) 01/25/21 09:51 Urine Bacteria (Auto) 1+ /HPF (Negative) 01/18/21 08:47 Urine WBC Clumps 3+ /HPF 11/11/20 13:50 Calcium Oxalate Crystal Few 11/11/20 13:50 Urine Mucus Few /HPF 01/25/21 09:51 Urine Yeast (Budding) 2+ /HPF 01/25/21 09:51 Vancomycin Trough 12.6 ug/mL (5.0-20.0) 10/21/20 13:54 Random Vancomycin 10.7 ug/mL (0-40.0) 10/16/20 13:09 Phenytoin 5.7 ug/mL (10.0-20.0) L 10/13/20 07:00 C. difficile Tox (PCR) Positive (Negative) 10/16/20 10:22 Coronavirus (PCR) Negative (Negative) 10/08/20 14:15 Blood Type O POSITIVE 10/02/20 12:50 Antibody Screen Negative 10/02/20 12:50 Crossmatch See Detail 10/02/20 12:50 - Diagnostic Impressions Diagnostic Impressions: Echocardiogram 10/03/20 13:42 Transthoracic Echocardiogram Indication: S/P Cardiac Arrest R/O Cardiomyopathy BP: 133/71 Conclusions *Global left ventricular systolic function is normal. *The estimated ejection fraction is 60-65%. *There is trace of mitral regurgitation. *The right 0heart chambers are both slightly dilated. *There is mild tricuspid regurgitation. *There is mild-moderate pulmonary hypertension. *The right ventricular systolic pressure is calculated at 44 mmHg. *The study quality is technically difficult. Findings Procedure Info: The study quality is technically difficult. The study is technically limited due to patient body habitus. The study was technically limited due to the patient's inability to lay in the left lateral decubitus position. Left Ventricle: The left ventricular chamber size is normal. There is no left ventricular hypertrophy. Global left ventricular systolic function is normal. The estimated ejection fraction is 60-65%. Left Atrium: The left atrial chamber size is normal. Right Ventricle: The right ventricle is slightly dilated. Right Atrium: The right atrium is mildly dilated. Aortic Valve: The aortic valve leaflets are mildly thickened. There is no evidence of aortic regurgitation. There is no evidence of aortic stenosis. Mitral Valve: The mitral valve leaflets are mildly thickened. There is trace of mitral regurgitation. There is no evidence of mitral stenosis. Tricuspid Valve: There is mild tricuspid regurgitation. The right ventricular systolic pressure is calculated at 44 mmHg. There is evidence of mild pulmonary hypertension. Pulmonic Valve: There is trace pulmonic regurgitation. Pericardium: There is no pericardial effusion. Aorta: There is no dilatation of the ascending aorta. There is no dilatation of the aortic root. Venous: The inferior vena cava is dilated. Measurements Chambers 2D Name Value Normal Range IVSd (2D) 1 cm (0.6 - 1.1) LVPWd (2D) 1.01 cm (0.6 - 1.1) LVIDd (2D) 4.58 cm (3.7 - 5.6) LVIDs (2D) 3.17 cm (2 - 3.8) LV FS (2D) 30.93 % - EF Teichholz (2D) 58.66 % - Ao root diameter (2D) 2.94 cm (2 - 3.7) Volumes/Mass Name Value Normal Range LA ESV SP 4CH (A/L) 72.82 ml - LA ESV SP 2CH (A/L) 66.86 ml - LA ESV BP (A/L) 74.49 ml - LA ESV SP 4CH (MOD) 71.03 ml - LA ESV SP 2CH (MOD) 64.3 ml - LV EDV SP 4CH (MOD) 98.82 ml - LV ESV SP 4CH (MOD) 24.8 ml - EF SP 4CH (MOD) 74.9 % - LV EDV SP 2CH (MOD) 86.1 ml - LV ESV SP 2CH (MOD) 36.93 ml - EF SP 2CH (MOD) 57.11 % - LV EDV BP 94.4 ml - LV ESV BP 32.66 ml - BP EF (MOD) 65.4 % - Diastolic/Systolic Function Name Value Normal Range MV E-wave Vmax 1.04 m/sec - MV deceleration time 160.46 msec - MV A-wave Vmax 0.92 m/sec - MV E:A ratio 1.14 ratio - Aortic Valve Name Value Normal Range AV Vmax 2.12 m/sec - AV VTI 22.37 cm - AV peak gradient 17.95 mmHg - AV mean gradient 7.29 mmHg - LVOT diameter 2.01 cm - LVOT Vmax 1.8 m/sec - LVOT VTI 27.17 cm - LVOT peak gradient 12.91 mmHg - LVOT mean gradient 6.83 mmHg - SV LVOT 86.42 ml - ANITA (continuity Vmax) 2.7 cm2 - ANITA (continuity VTI) 3.86 cm2 - Ascending Ao 3.18 cm - Tricuspid Valve Name Value Normal Range TV E-wave Vmax 0.88 m/sec - TR Vmax 3.01 m/sec - TR peak gradient 36.27 mmHg - RAP 8 mmHg - RVSP 44 mmHg - IVC diameter 2.65 cm (1.2 - 2.3) Pulmonic Valve/Qp:Qs Name Value Normal Range PV Vmax 1.22 m/sec - PV peak gradient 5.91 mmHg - RVOT Vmax 0.87 m/sec - RVOT VTI 13.32 cm - RVOT peak gradient 3 mmHg - PV acceleration time 110.37 msec - [place]/IV: Voiding Method Incontinent IV Catheter Type [Right Foot] INT / Saline Lock IV Catheter Type [Left Forearm Peripheral IV ] IV Catheter Type [Left Wrist] INT / Saline Lock IV Catheter Type [Right Hand] INT / Saline Lock IV Catheter Type [Right INT / Saline Lock Antecubital] IV Catheter Type [Right Upper Mid-line arm] IV Catheter Type [Left Triple Lumen Cath Internal Jugular] IV Catheter Type [Left Hand] Peripheral IV IV Catheter Type [Left Peripheral IV Antecubital] Active Medications - Current Medications Current Medications: Generic Name Dose Route Start Last Admin Trade Name Freq PRN Reason Stop Dose Admin Acetaminophen 650 mg 10/05/20 16:34 04/01/21 22:29 Acetaminophen 325 Mg/10.15 Ml Oral Liqd Unit Dose FEEDTUBE 650 mg Q6H PRN Administration Non Cardiac Pain or Temp>100.5 Albuterol 2.5 mg 11/05/20 13:03 11/06/20 13:04 Albuterol 2.5 Mg/3 Ml Nebu IH 2.5 mg Q4HRT PRN Administration Shortness Of Breath Alprazolam 0.25 mg 01/20/21 13:33 04/01/21 13:47 Alprazolam 0.25 Mg Tab PO 0.25 mg Q8H PRN Administration Anxiety Lipase/Protease/Amylase 1 each 10/05/20 11:09 Lipase 10,500/Protease 25,000/Amylase 43,750 (Units) Dr Barakat FEEDTUBE PRN PRN For Clogged Feeding Tube Enoxaparin Sodium 40 mg 10/22/20 10:00 04/01/21 13:48 Enoxaparin 40 Mg/0.4 Ml Inj SUB-Q 40 mg DAILY ERINN Administration Protocol Famotidine 20 mg 10/07/20 10:00 04/01/21 22:31 Famotidine 20 Mg Tab PO 20 mg BID ERINN Administration Hydrophilic Ointment 1 applic 01/03/21 13:00 02/16/21 09:56 Lip Therapy Vaseline TP 1 applic DIRECT PRN Administration Dry Lips Dextrose 1,000 mls @ 30 mls/hr 01/03/21 12:00 02/11/21 18:44 D5w IV 30 mls/hr DIRECT ERINN Administration Metoprolol Tartrate 50 mg 02/02/21 16:01 04/01/21 22:31 Metoprolol Tartrate 25 Mg Tab PO 50 mg BID ERINN Administration Morphine Sulfate 2 mg 01/20/21 13:33 Morphine 2 Mg/1 Ml Inj IV Q4H PRN Pain, Moderate (4-6) Ondansetron HCl 4 mg 02/10/21 11:38 02/10/21 13:18 Ondansetron 4 Mg/2 Ml Inj IV 4 mg Q4H PRN Administration Nausea And Vomiting Simple Syrup 15 ml 10/05/20 11:09 Simple Syrup 15 Ml FEEDTUBE PRN PRN Hypoglycemia Simple Syrup 30 ml 10/05/20 11:09 03/23/21 06:11 Simple Syrup 15 Ml FEEDTUBE 30 ml PRN PRN Administration Hypoglycemia Sodium Bicarbonate 325 mg 10/05/20 11:09 12/16/20 08:19 Sodium Bicarbonate 325 Mg Tab FEEDTUBE 325 mg PRN PRN Administration For Clogged Feeding Tube Nutrition/Malnutrition Assess - Dietary Evaluation Nutrition/Malnutrition Findings: Nutrition Notes Start: 10/04/20 11:13 Freq: Status: Active Protocol: Document 03/31/21 14:05 MEY (Rec: 03/31/21 14:10 [email or web address] [id number]) Nutrition Notes Initial or Follow up Reassessment Other Pertinent Diagnosis s/p cardiac arrest x 2, anoxic brain injury Current Diet TF - Promote at 65ml/hr Labs/Tests Reviewed Pertinent Medications Reviewed Height 5 ft 8 in Weight 91 kg [place] Body Weight (kg) 63.63 BMI 30.4 Weight change and time frame wt fluctuations Weight Status Overweight Subjective/Other Information Pt tolerating TF at goal rate, per RN. Pt continues to wait placement. Percent of energy/protein needs met: 100%/100% Burn Absent Trauma Absent GI Symptoms None Difficulty In Swallowing,Chewing Current % PO Negligible Minimum of two criteria No #1 Nutrition Diagnosis Inadequate oral intake Diagnosis Progress(for reassessment Continues documentation) Is patient on ventilator? No Is Patient Ambulatory and/or Out of Bed No REE-([facility]-confined to bed) 2003.180 Kcal/Kg value to use for calculation 17 Approximate Energy Requirements Using 1547 kcal/Kg Calculation Used for [facility]ations [facility] Additional Notes Pro needs 0.8-1g/k-89g/ day Fluid needs 1ml/kcal Nutrition Intervention Nutrition Support: Continue Promote at 65 mL/hr Flush 100 ml q4h Kcal 1,560 Protein (gm) 98 Fluid (mL) 1,309 Goal #1 TF tolerance Goal #2 TF to meet at least 75% estimated energy and protein needs. Follow-Up By: 04/07/21 Additional Comments FU for stable TF
[2021-04-02] MEDS: ENOXAPARIN 40 MG/0.4 ML INJ SUB-Q SCH (10:22)
[2021-04-02] MEDS: FAMOTIDINE 20 MG TAB PO SCH ×2 (10:23→22:01)
[2021-04-02] MEDS: METOPROLOL TARTRATE 25 MG TAB PO SCH ×2 (10:23→22:01)
[2021-04-02] MEDS: ALPRAZolam 0.25 MG TAB PO PRN ×2 (16:45→22:00)
[2021-04-03] MEDS: METOPROLOL TARTRATE 25 MG TAB PO SCH ×2 (08:59→22:53)
[2021-04-03] MEDS: ENOXAPARIN 40 MG/0.4 ML INJ SUB-Q SCH (08:59)
[2021-04-03] MEDS: FAMOTIDINE 20 MG TAB PO SCH ×2 (08:59→22:53)
[2021-04-03] MEDS: ALPRAZolam 0.25 MG TAB PO PRN ×2 (09:00→23:02)
--- NOTE | 2021-04-03 10:07 | Progress Note ---
Assessment and Plan Assessment and plan: --s/p Cardiac arrest x2 on admission and on 10/07 ACLS protocol followed by revival, Echo showed preserved Ef --Anoxic brain injury, Developed following cardiac arrest, patient does not follow commands Restless and agitated continue supportive care f/u CT head without contrast 03/24/2021 [as requested by the family]; no acute abnormality Pronounced diffuse cerebral atrophy --Shock-resolved now awaiting placement, s/p pressor support --DIC (disseminated intravascular coagulation) vs HELLP syndrome , Resolved --Possible Eclampsia/HELLP Syndrome, Resolved --ADOLPH-resolved, Stable --Sepsis 2/2 UTI s/p cefepime to cover possible pseudomonas as sputum is also growing GN rods till 01/04/21 Previous urine culture grew pansensitive ecoli Blood cultures from 12/27-no growth --Hypernatremia, resolved, cont free water with TF --DVT prophylaxis Patient presented with DIC No anticoagulants Overall prognosis extremely poor. DC planning per case management, awaiting placement Multiple social issue Brief history and hospital course; 30 year old -[place] female CHE 10/25/20 at 36w5d who presents with seizures in triage on 10/02/20. Pt was not able to provide history but per pt's , she presented to the hospital to return a 24 hour urine specimen for analysis. She then suddenly reported that she did not feel good. She was taken to labor and delivery and shortly after arrival, she began seizing. During this time, a code met was called because the patient became hypoxic. She was then noted to be without a pulse. Chest compressions were started immediately, and the patient was emergently taken to the operating room for delivery of the fetus. Off note, This patient has had care at [facility] with comanagement by [facility] since 11 wks complicated by ADHD, morbid obesity, generalized anxiety disorder, panic attacks, chronic narcotic use, fibromyalgia, GERD, Irritable Bowel Syndrome, Migraines, h/o endometrial ablation and ovarian vein embolization, genital herpes, insomnia, LGA fetus, nausea and vomiting, polyhydramnios, quad screen positive for Down's Syndrome, and previous x 3. She was GBS negative. 10/02/2020-03/15/2021 daily hospital course reviewed 03/16/2021; Awaiting placement. Patient is on PEG tube feeding. Saturating well on room air. Patient is mildly tachycardic. Pending placement. 03/17/2021; Awaiting placement. Patient is on PEG tube feeding. Saturating well on room air. Patient is mildly tachycardic. Pending placement. 03/18/2021; awaiting placement. 03/19/2021; awaiting placement. 03/20/2021; awaiting placement. 03/21/21; awaiting placement. 03/22/2021; Awaiting placement. Patient is on PEG tube feeding. Saturating well on room air. Patient is mildly tachycardic. Pending placement. 03/23/2021; multiple social issues, awaiting LTAC placement 03/24/2021; pending placement. Clinically no change, I discussed with patient's mother extensively, she had numerous questions answered all of them She requested a repeat CT head as she noticed significant change in her daughters level of consciousness. Will check CT head without contrast 03/25/2021; I discussed with patient's mother extensively yesterday 03/24/2021, she requested a repeat CT scan as she feels that patient is responding f/u CT head without contrast 03/24/2021; no acute abnormalities, pronounced diffuse cerebral atrophy. 03/26/2021; awaiting placement, multiple social issues, I called and discussed CT head findings with patient's mother Ms. Santiago She verbalized understanding. Disposition; pending placement 03/30/2021 I resumed service today; Clinically no change, awaiting placement, multiple social issues 03/31/2021; multiple social issues, awaiting placement 04/01/2021; clinically no change, social issues, awaiting placement 04/02/2021; patient response to some sound by moving her head, not purposeful Did not respond to communication, awaiting placement 04/03/2021; pending placement social issues, History Interval history: Patient is alert not responding to verbal commands Restless, encephalopathic Vital signs noted Hospitalist Physical - Constitutional Vitals: Temp Pulse Resp BP Pulse Ox 99 F 96 H 20 116/68 96 04/03/21 06:00 04/03/21 06:00 04/03/21 06:00 04/03/21 06:00 04/02/21 17:16 General appearance: Present: mild distress, well-nourished, obese, other (Anoxic encephalopathy, slightly restless) - EENT Eyes: Present: PERRL, EOM intact - Neck Neck: Present: supple, normal ROM - Respiratory Respiratory effort: labored Respiratory: bilateral: diminished, rhonchi, negative: rales, wheezing - Cardiovascular Rhythm: regular Heart Sounds: Present: S1 & S2 - Extremities Extremities: no ischemia, No edema - Abdominal General gastrointestinal: soft, non-tender, non-distended, normal bowel sounds - Integumentary Integumentary: Present: clear, warm - Psychiatric Psychiatric: other (Unresponsive) - Neurologic Neurologic: other (Noncommunicative) HEART Score - HEART Score Age: < 45 Risk factors: 1-2 risk factors - Critical Actions Critical Actions: >7 pts:50-65% risk of adverse cardiac event. Early invasive measures Results - Labs CBC & Chem 7: 03/16/21 04:42 03/16/21 04:42 Labs: Laboratory Last Values WBC 9.4 K/mm3 (4.5-11.0) 03/16/21 04:42 RBC 5.06 M/mm3 (3.65-5.03) H 03/16/21 04:42 Hgb 12.2 gm/dl (10.1-14.3) 03/16/21 04:42 Hgb Comment See scanned result 10/04/20 Unknown Hct 37.6 % (30.3-42.9) 03/16/21 04:42 MCV 74 fl (79-97) L 03/16/21 04:42 MCH 24 pg (28-32) L 03/16/21 04:42 MCHC 33 % (30-34) 03/16/21 04:42 RDW 15.8 % (13.2-15.2) H 03/16/21 04:42 Plt Count 311 K/mm3 (140-440) 03/16/21 04:42 Lymph % (Auto) 33.5 % (13.4-35.0) 03/16/21 04:42 [place]wey % (Auto) 8.1 % (0.0-7.3) H 03/16/21 04:42 Eos % (Auto) 1.7 % (0.0-4.3) 03/16/21 04:42 Baso % (Auto) 0.5 % (0.0-1.8) 03/16/21 04:42 Lymph # (Auto) 3.1 K/mm3 (1.2-5.4) 03/16/21 04:42 [place]wey # (Auto) 0.8 K/mm3 (0.0-0.8) 03/16/21 04:42 Eos # (Auto) 0.2 K/mm3 (0.0-0.4) 03/16/21 04:42 Baso # (Auto) 0.0 K/mm3 (0.0-0.1) 03/16/21 04:42 Add Manual Diff Complete 02/09/21 10:59 Total Counted 100 02/09/21 10:59 Seg Neutrophils % 56.2 % (40.0-70.0) 03/16/21 04:42 Seg Neuts % (Manual) 58.0 % (40.0-70.0) 02/09/21 10:59 Band Neutrophils % 2.0 % 10/15/20 05:50 Lymphocytes % (Manual) 29.0 % (13.4-35.0) 02/09/21 10:59 Reactive Lymphs % (Man) 1.0 % 10/02/20 12:18 Monocytes % (Manual) 13.0 % (0.0-7.3) H 02/09/21 10:59 Eosinophils % (Manual) 1.0 % (0.0-4.3) 10/29/20 07:56 Myelocytes % 2.0 % 10/02/20 13:05 Metamyelocytes % 1.0 % 10/14/20 04:00 Nucleated RBC % Not Reportable 02/09/21 10:59 Seg Neutrophils # 5.3 K/mm3 (1.8-7.7) 03/16/21 04:42 Seg Neutrophils # Man 3.7 K/mm3 (1.8-7.7) 02/09/21 10:59 Band Neutrophils # 0.0 K/mm3 02/09/21 10:59 Lymphocytes # (Manual) 1.8 K/mm3 (1.2-5.4) 02/09/21 10:59 Abs React Lymphs (Man) 0.0 K/mm3 02/09/21 10:59 Monocytes # (Manual) 0.8 K/mm3 (0.0-0.8) 02/09/21 10:59 Eosinophils # (Manual) 0.0 K/mm3 (0.0-0.4) 02/09/21 10:59 Basophils # (Manual) 0.0 K/mm3 (0.0-0.1) 02/09/21 10:59 Metamyelocytes # 0.0 K/mm3 02/09/21 10:59 Myelocytes # 0.0 K/mm3 02/09/21 10:59 Promyelocytes # 0.0 K/mm3 02/09/21 10:59 Blast Cells # 0.0 K/mm3 02/09/21 10:59 WBC Morphology Not Reportable 02/09/21 10:59 Hypersegmented Neuts Not Reportable 02/09/21 10:59 Hyposegmented Neuts Not Reportable 02/09/21 10:59 Hypogranular Neuts Not Reportable 02/09/21 10:59 Smudge Cells Not Reportable 02/09/21 10:59 Toxic Granulation Not Reportable 02/09/21 10:59 Toxic Vacuolation Not Reportable 02/09/21 10:59 Dohle Bodies Not Reportable 02/09/21 10:59 Pelger-Huet Anomaly Not Reportable 02/09/21 10:59 Ester Rods Not Reportable 02/09/21 10:59 Platelet Estimate Consistent w auto 02/09/21 10:59 Clumped Platelets Not Reportable 02/09/21 10:59 Plt Clumps, EDTA Not Reportable 02/09/21 10:59 Large Platelets Few 02/09/21 10:59 Giant Platelets Not Reportable 02/09/21 10:59 Platelet Satelliting Not Reportable 02/09/21 10:59 Plt Morphology Comment Not Reportable 02/09/21 10:59 RBC Morphology Not Reportable 02/09/21 10:59 Dimorphic RBCs Not Reportable 02/09/21 10:59 Polychromasia Not Reportable 02/09/21 10:59 Hypochromasia 1+ 02/09/21 10:59 Poikilocytosis Not Reportable 02/09/21 10:59 Anisocytosis Not Reportable 02/09/21 10:59 Microcytosis Not Reportable 02/09/21 10:59 Macrocytosis Not Reportable 02/09/21 10:59 Spherocytes Not Reportable 02/09/21 10:59 Pappenheimer Bodies Not Reportable 02/09/21 10:59 Sickle Cells Not Reportable 02/09/21 10:59 Target Cells Not Reportable 02/09/21 10:59 Tear Drop Cells Not Reportable 02/09/21 10:59 Ovalocytes Not Reportable 02/09/21 10:59 Stomatocytes Few 10/14/20 04:00 Helmet Cells Not Reportable 02/09/21 10:59 [place] Bodies Not Reportable 02/09/21 10:59 [place] Rings Not Reportable 02/09/21 10:59 Yale Cells Not Reportable 02/09/21 10:59 Bite Cells Not Reportable 02/09/21 10:59 Crenated Cell Not Reportable 02/09/21 10:59 Elliptocytes Not Reportable 02/09/21 10:59 Acanthocytes (Spur) Not Reportable 02/09/21 10:59 Rouleaux Not Reportable 02/09/21 10:59 Hemoglobin C Crystals Not Reportable 02/09/21 10:59 Schistocytes Not Reportable 02/09/21 10:59 Malaria parasites Not Reportable 02/09/21 10:59 Sickle Cell Solubility See scanned result 10/04/20 Unknown Hemoglobin A See scanned result 10/04/20 Unknown Hemoglobin A2 See scanned result 10/04/20 Unknown Hemoglobin A2 Prime See scanned result 10/04/20 Unknown Hemoglobin C See scanned result 10/04/20 Unknown Hemoglobin D See scanned result 10/04/20 Unknown Hemoglobin E See scanned result 10/04/20 Unknown Hgb F Diffential Stain See scanned result 10/04/20 Unknown Hemoglobin F Quant See scanned result 10/04/20 Unknown Hemoglobin G See scanned result 10/04/20 Unknown Hemoglobin S See scanned result 10/04/20 Unknown Hemoglobin O-[place] See scanned result 10/04/20 Unknown Hemoglobin [place] See scanned result 10/04/20 Unknown Hemoglobin Analilia See scanned result 10/04/20 Unknown Variant Hemoglobin See scanned result 10/04/20 Unknown Abnorm Hgb IEF Confirm See scanned result 10/04/20 Unknown Hemoglobin Interpret See scanned result 10/04/20 Unknown Hemoglobinopathy Note See scanned result 10/04/20 Unknown Sharad Bodies Not Reportable 02/09/21 10:59 Hem Pathologist Commnt No 02/09/21 10:59 PT 13.6 Sec. (12.2-14.9) 10/21/20 13:54 INR 1.06 (0.87-1.13) 10/21/20 13:54 APTT 31.6 Sec. (24.2-36.6) 10/03/20 00:40 Fibrinogen 336 mg/dl (211-480) 10/04/20 10:00 D-Dimer 1974.47 ng/mlDDU (0-234) H 11/11/20 13:50 ABG pH 7.459 pH Units (7.350-7.450) H 10/26/20 10:30 POC ABG pCO2 20.7 mmHg (32.0-48.0) L 10/13/20 07:18 ABG pCO2 32.4 mm Hg 10/26/20 10:30 POC ABG pO2 137.9 mmHg (83-108) H 10/13/20 07:18 ABG pO2 112.2 mm Hg (80.0-90.0) H 10/26/20 10:30 POC ABG HCO3 14.8 10/13/20 07:18 ABG HCO3 22.5 mmol/L (20.0-26.0) 10/26/20 10:30 ABG O2 Saturation 98.2 % (95.0-99.0) 10/26/20 10:30 ABG O2 Content 18.5 (0.0-44) 10/26/20 10:30 POC ABG Base Excess -6.9 10/13/20 07:18 ABG Base Excess -0.6 mmol/L (-2.0-3.0) 10/26/20 10:30 ABG Hemoglobin 13.5 gm/dl (12.0-16.0) 10/26/20 10:30 ABG Oxyhemoglobin 98.3 (94-98) H 10/13/20 07:18 ABG Carboxyhemoglobin 1.3 % (0.0-5.0) 10/26/20 10:30 ABG Methemoglobin 0.5 % (0.0-1.5) 10/26/20 10:30 ABG Sodium 135.9 mmol/L (136.0-145.0) L 10/13/20 07:18 ABG Potassium 3.7 mmol/L (3.40-4.50) 10/13/20 07:18 ABG Chloride 111.0 mmol/L (98-107) H 10/13/20 07:18 ABG Glucose 109 mg/dL (65-95) H 10/13/20 07:18 VBG pH 6.949 (7.320-7.420) L* 10/02/20 Unknown Oxyhemoglobin 96.5 % (95.0-99.0) 10/26/20 10:30 Carboxyhemoglobin 0.3 (0.5-1.5) L 10/13/20 07:18 FiO2 25 % 10/26/20 10:30 Sodium 140 mmol/L (137-145) 03/16/21 04:42 Potassium 3.9 mmol/L (3.6-5.0) 03/16/21 04:42 Chloride 103.1 mmol/L (98-107) 03/16/21 04:42 Carbon Dioxide 25 mmol/L (22-30) 03/16/21 04:42 Anion Gap 16 mmol/L 03/16/21 04:42 BUN 12 mg/dL (7-17) 03/16/21 04:42 Creatinine 0.5 mg/dL (0.6-1.2) L 03/16/21 04:42 Estimated GFR > 60 ml/min 03/16/21 04:42 BUN/Creatinine Ratio 24 % 03/16/21 04:42 Glucose 95 mg/dL (65-100) 03/16/21 04:42 POC Glucose 86 mg/dL (70-105) 04/02/21 21:21 Random Insulin 43.2 uIU/mL (<=19.6) H 11/02/20 19:19 Proinsulin See scanned result 11/02/20 19:19 C-Peptide 6.23 ng/mL (0.80-3.85) H 11/02/20 19:19 Lactic Acid 1.90 mmol/L (0.7-2.0) 10/04/20 22:00 Uric Acid 7.5 mg/dL (3.5-7.6) 10/02/20 13:05 Calcium 9.6 mg/dL (8.4-10.2) 03/16/21 04:42 Ionized Calcium 4.4 mg/dL (4.8-5.6) L 10/07/20 21:00 Phosphorus 4.60 mg/dL (2.5-4.5) H 11/13/20 10:05 Magnesium 2.10 mg/dL (1.7-2.3) 11/13/20 10:05 Total Bilirubin 0.80 mg/dL (0.1-1.2) 03/04/21 04:46 AST 51 units/L (5-40) H 03/04/21 04:46 ALT 53 units/L (7-56) 03/04/21 04:46 Alkaline Phosphatase 117 units/L (35-129) 03/04/21 04:46 Lactate Dehydrogenase 769 units/L (91-180) H 10/02/20 13:05 C-Reactive Protein 0.70 mg/dL (0.00-1.30) 11/11/20 13:50 NT-Pro-B Natriuret Pep 2788 pg/mL (0-450) H 10/04/20 10:00 Total Protein 8.4 g/dL (6.3-8.2) H 03/04/21 04:46 Albumin 4.2 g/dL (3.9-5) 03/04/21 04:46 Albumin/Globulin Ratio 1.0 % 03/04/21 04:46 Procalcitonin < 0.05 ng/mL (<0.15) 03/02/21 02:30 Arterial Blood Glucose 109 mg/dL (65-95) H 10/13/20 07:18 Arterial Blood Ionized Calcium 4.6 mg/dL (4.6-5.3) 10/13/20 07:18 Urine Color Yellow (Yellow) 01/25/21 09:51 Urine Turbidity Cloudy (Clear) 01/25/21 09:51 Urine pH 7.0 (5.0-7.0) 01/25/21 09:51 Ur Specific [place] 1.011 (1.003-1.030) 01/25/21 09:51 Urine Protein <15 mg/dl mg/dL (Negative) 01/25/21 09:51 Urine Glucose (UA) Neg mg/dL (Negative) 01/25/21 09:51 Urine Ketones Neg mg/dL (Negative) 01/25/21 09:51 Urine Blood Neg (Negative) 01/25/21 09:51 Urine Nitrite Neg (Negative) 01/25/21 09:51 Urine Bilirubin Neg (Negative) 01/25/21 09:51 Urine Urobilinogen < 2.0 mg/dL (<2.0) 01/25/21 09:51 Ur Leukocyte Esterase Neg (Negative) 01/25/21 09:51 Urine WBC (Auto) 6.0 /HPF (0.0-6.0) 01/25/21 09:51 Urine RBC (Auto) 3.0 /HPF (0.0-6.0) 01/25/21 09:51 U Epithel Cells (Auto) < 1.0 /HPF (0-13.0) 01/25/21 09:51 Urine Bacteria (Auto) 1+ /HPF (Negative) 01/18/21 08:47 Urine WBC Clumps 3+ /HPF 11/11/20 13:50 Calcium Oxalate Crystal Few 11/11/20 13:50 Urine Mucus Few /HPF 01/25/21 09:51 Urine Yeast (Budding) 2+ /HPF 01/25/21 09:51 Vancomycin Trough 12.6 ug/mL (5.0-20.0) 10/21/20 13:54 Random Vancomycin 10.7 ug/mL (0-40.0) 10/16/20 13:09 Phenytoin 5.7 ug/mL (10.0-20.0) L 10/13/20 07:00 C. difficile Tox (PCR) Positive (Negative) 10/16/20 10:22 Coronavirus (PCR) Negative (Negative) 10/08/20 14:15 Blood Type O POSITIVE 10/02/20 12:50 Antibody Screen Negative 10/02/20 12:50 Crossmatch See Detail 10/02/20 12:50 - Diagnostic Impressions Diagnostic Impressions: Echocardiogram 10/03/20 13:42 Transthoracic Echocardiogram Indication: S/P Cardiac Arrest R/O Cardiomyopathy BP: 133/71 Conclusions *Global left ventricular systolic function is normal. *The estimated ejection fraction is 60-65%. *There is trace of mitral regurgitation. *The right 0heart chambers are both slightly dilated. *There is mild tricuspid regurgitation. *There is mild-moderate pulmonary hypertension. *The right ventricular systolic pressure is calculated at 44 mmHg. *The study quality is technically difficult. Findings Procedure Info: The study quality is technically difficult. The study is technically limited due to patient body habitus. The study was technically limited due to the patient's inability to lay in the left lateral decubitus position. Left Ventricle: The left ventricular chamber size is normal. There is no left ventricular hypertrophy. Global left ventricular systolic function is normal. The estimated ejection fraction is 60-65%. Left Atrium: The left atrial chamber size is normal. Right Ventricle: The right ventricle is slightly dilated. Right Atrium: The right atrium is mildly dilated. Aortic Valve: The aortic valve leaflets are mildly thickened. There is no evidence of aortic regurgitation. There is no evidence of aortic stenosis. Mitral Valve: The mitral valve leaflets are mildly thickened. There is trace of mitral regurgitation. There is no evidence of mitral stenosis. Tricuspid Valve: There is mild tricuspid regurgitation. The right ventricular systolic pressure is calculated at 44 mmHg. There is evidence of mild pulmonary hypertension. Pulmonic Valve: There is trace pulmonic regurgitation. Pericardium: There is no pericardial effusion. Aorta: There is no dilatation of the ascending aorta. There is no dilatation of the aortic root. Venous: The inferior vena cava is dilated. Measurements Chambers 2D Name Value Normal Range IVSd (2D) 1 cm (0.6 - 1.1) LVPWd (2D) 1.01 cm (0.6 - 1.1) LVIDd (2D) 4.58 cm (3.7 - 5.6) LVIDs (2D) 3.17 cm (2 - 3.8) LV FS (2D) 30.93 % - EF Teichholz (2D) 58.66 % - Ao root diameter (2D) 2.94 cm (2 - 3.7) Volumes/Mass Name Value Normal Range LA ESV SP 4CH (A/L) 72.82 ml - LA ESV SP 2CH (A/L) 66.86 ml - LA ESV BP (A/L) 74.49 ml - LA ESV SP 4CH (MOD) 71.03 ml - LA ESV SP 2CH (MOD) 64.3 ml - LV EDV SP 4CH (MOD) 98.82 ml - LV ESV SP 4CH (MOD) 24.8 ml - EF SP 4CH (MOD) 74.9 % - LV EDV SP 2CH (MOD) 86.1 ml - LV ESV SP 2CH (MOD) 36.93 ml - EF SP 2CH (MOD) 57.11 % - LV EDV BP 94.4 ml - LV ESV BP 32.66 ml - BP EF (MOD) 65.4 % - Diastolic/Systolic Function Name Value Normal Range MV E-wave Vmax 1.04 m/sec - MV deceleration time 160.46 msec - MV A-wave Vmax 0.92 m/sec - MV E:A ratio 1.14 ratio - Aortic Valve Name Value Normal Range AV Vmax 2.12 m/sec - AV VTI 22.37 cm - AV peak gradient 17.95 mmHg - AV mean gradient 7.29 mmHg - LVOT diameter 2.01 cm - LVOT Vmax 1.8 m/sec - LVOT VTI 27.17 cm - LVOT peak gradient 12.91 mmHg - LVOT mean gradient 6.83 mmHg - SV LVOT 86.42 ml - ANITA (continuity Vmax) 2.7 cm2 - ANITA (continuity VTI) 3.86 cm2 - Ascending Ao 3.18 cm - Tricuspid Valve Name Value Normal Range TV E-wave Vmax 0.88 m/sec - TR Vmax 3.01 m/sec - TR peak gradient 36.27 mmHg - RAP 8 mmHg - RVSP 44 mmHg - IVC diameter 2.65 cm (1.2 - 2.3) Pulmonic Valve/Qp:Qs Name Value Normal Range PV Vmax 1.22 m/sec - PV peak gradient 5.91 mmHg - RVOT Vmax 0.87 m/sec - RVOT VTI 13.32 cm - RVOT peak gradient 3 mmHg - PV acceleration time 110.37 msec - [place]/IV: Voiding Method Incontinent IV Catheter Type [Right Foot] INT / Saline Lock IV Catheter Type [Left Forearm Peripheral IV ] IV Catheter Type [Left Wrist] INT / Saline Lock IV Catheter Type [Right Hand] INT / Saline Lock IV Catheter Type [Right INT / Saline Lock Antecubital] IV Catheter Type [Right Upper Mid-line arm] IV Catheter Type [Left Triple Lumen Cath Internal Jugular] IV Catheter Type [Left Hand] Peripheral IV IV Catheter Type [Left Peripheral IV Antecubital] Active Medications - Current Medications Current Medications: Generic Name Dose Route Start Last Admin Trade Name Freq PRN Reason Stop Dose Admin Acetaminophen 650 mg 10/05/20 16:34 04/01/21 22:29 Acetaminophen 325 Mg/10.15 Ml Oral Liqd Unit Dose FEEDTUBE 650 mg Q6H PRN Administration Non Cardiac Pain or Temp>100.5 Albuterol 2.5 mg 11/05/20 13:03 11/06/20 13:04 Albuterol 2.5 Mg/3 Ml Nebu IH 2.5 mg Q4HRT PRN Administration Shortness Of Breath Alprazolam 0.25 mg 01/20/21 13:33 04/03/21 09:00 Alprazolam 0.25 Mg Tab PO 0.25 mg Q8H PRN Administration Anxiety Lipase/Protease/Amylase 1 each 10/05/20 11:09 Lipase 10,500/Protease 25,000/Amylase 43,750 (Units) Dr Barakat FEEDTUBE PRN PRN For Clogged Feeding Tube Enoxaparin Sodium 40 mg 10/22/20 10:00 04/03/21 08:59 Enoxaparin 40 Mg/0.4 Ml Inj SUB-Q 40 mg DAILY ERINN Administration Protocol Famotidine 20 mg 10/07/20 10:00 04/03/21 08:59 Famotidine 20 Mg Tab PO 20 mg BID ERINN Administration Hydrophilic Ointment 1 applic 01/03/21 13:00 02/16/21 09:56 Lip Therapy Vaseline TP 1 applic DIRECT PRN Administration Dry Lips Metoprolol Tartrate 50 mg 02/02/21 16:01 04/03/21 08:59 Metoprolol Tartrate 25 Mg Tab PO 50 mg BID ERINN Administration Morphine Sulfate 2 mg 01/20/21 13:33 Morphine 2 Mg/1 Ml Inj IV Q4H PRN Pain, Moderate (4-6) Ondansetron HCl 4 mg 02/10/21 11:38 02/10/21 13:18 Ondansetron 4 Mg/2 Ml Inj IV 4 mg Q4H PRN Administration Nausea And Vomiting Simple Syrup 15 ml 10/05/20 11:09 Simple Syrup 15 Ml FEEDTUBE PRN PRN Hypoglycemia Simple Syrup 30 ml 10/05/20 11:09 03/23/21 06:11 Simple Syrup 15 Ml FEEDTUBE 30 ml PRN PRN Administration Hypoglycemia Sodium Bicarbonate 325 mg 10/05/20 11:12/16/20 08:19 Sodium Bicarbonate 325 Mg Tab FEEDTUBE 325 mg PRN PRN Administration For Clogged Feeding Tube Nutrition/Malnutrition Assess - Dietary Evaluation Nutrition/Malnutrition Findings: Nutrition Notes Start: 10/04/20 11:13 Freq: Status: Active Protocol: Document 03/31/21 14:05 MEY (Rec: 03/31/21 14:10 [id number]) Nutrition Notes Initial or Follow up Reassessment Other Pertinent Diagnosis s/p cardiac arrest x 2, anoxic brain injury Current Diet TF - Promote at 65ml/hr Labs/Tests Reviewed Pertinent Medications Reviewed Height 5 ft 8 in Weight 91 kg Abie Body Weight (kg) 63.63 BMI 30.4 Weight change and time frame wt fluctuations Weight Status Overweight Subjective/Other Information Pt tolerating TF at goal rate, per RN. Pt continues to wait placement. Percent of energy/protein needs met: 100%/100% Burn Absent Trauma Absent GI Symptoms None Difficulty In Swallowing,Chewing Current % PO Negligible Minimum of two criteria No #1 Nutrition Diagnosis Inadequate oral intake Diagnosis Progress(for reassessment Continues documentation) Is patient on ventilator? No Is Patient Ambulatory and/or Out of Bed No REE-([facility]-confined to bed) 2003.180 Kcal/Kg value to use for calculation 17 Approximate Energy Requirements Using 1547 kcal/Kg Calculation Used for Recommendations [facility] Additional Notes Pro needs 0.8-1g/k-89g/ day Fluid needs 1ml/kcal Nutrition Intervention Nutrition Support: Continue Promote at 65 mL/hr Flush 100 ml q4h Kcal 1,560 Protein (gm) 98 Fluid (mL) 1,309 Goal #1 TF tolerance Goal #2 TF to meet at least 75% estimated energy and protein needs. Follow-Up By: 04/07/21 Additional Comments FU for stable TF
--- NOTE | 2021-04-04 08:17 | Progress Note ---
Assessment and Plan Assessment and plan: --s/p Cardiac arrest x2 on admission and on 10/07 ACLS protocol followed by revival, Echo showed preserved Ef --Anoxic brain injury, Developed following cardiac arrest, patient does not follow commands Restless and agitated continue supportive care f/u CT head without contrast 03/24/2021 [as requested by the family]; no acute abnormality Pronounced diffuse cerebral atrophy --Shock-resolved now awaiting placement, s/p pressor support --DIC (disseminated intravascular coagulation) vs HELLP syndrome , Resolved --Possible Eclampsia/HELLP Syndrome, Resolved --ADOLPH-resolved, Stable --Sepsis 2/2 UTI s/p cefepime to cover possible pseudomonas as sputum is also growing GN rods till 01/04/21 Previous urine culture grew pansensitive ecoli Blood cultures from 12/27-no growth --Hypernatremia, resolved, cont free water with TF --DVT prophylaxis Patient presented with DIC No anticoagulants Overall prognosis extremely poor. DC planning per case management, awaiting placement Multiple social issue Brief history and hospital course; 30 year old -Hungarian female CHE 10/25/20 at 36w5d who presents with seizures in triage on 10/02/20. Pt was not able to provide history but per pt's , she presented to the hospital to return a 24 hour urine specimen for analysis. She then suddenly reported that she did not feel good. She was taken to labor and delivery and shortly after arrival, she began seizing. During this time, a code met was called because the patient became hypoxic. She was then noted to be without a pulse. Chest compressions were started immediately, and the patient was emergently taken to the operating room for delivery of the fetus. Off note, This patient has had care at [facility] with comanagement by [facility] since 11 wks complicated by ADHD, morbid obesity, generalized anxiety disorder, panic attacks, chronic narcotic use, fibromyalgia, GERD, Irritable Bowel Syndrome, Migraines, h/o endometrial ablation and ovarian vein embolization, genital herpes, insomnia, LGA fetus, nausea and vomiting, polyhydramnios, quad screen positive for Down's Syndrome, and previous x 3. She was GBS negative. 10/02/2020-03/15/2021 daily hospital course reviewed 03/16/2021; Awaiting placement. Patient is on PEG tube feeding. Saturating well on room air. Patient is mildly tachycardic. Pending placement. 03/17/2021; Awaiting placement. Patient is on PEG tube feeding. Saturating well on room air. Patient is mildly tachycardic. Pending placement. 03/18/2021; awaiting placement. 03/19/2021; awaiting placement. 03/20/2021; awaiting placement. 03/21/21; awaiting placement. 03/22/2021; Awaiting placement. Patient is on PEG tube feeding. Saturating well on room air. Patient is mildly tachycardic. Pending placement. 03/23/2021; multiple social issues, awaiting LTAC placement 03/24/2021; pending placement. Clinically no change, I discussed with patient's mother extensively, she had numerous questions answered all of them She requested a repeat CT head as she noticed significant change in her daughters level of consciousness. Will check CT head without contrast 03/25/2021; I discussed with patient's mother extensively yesterday 03/24/2021, she requested a repeat CT scan as she feels that patient is responding f/u CT head without contrast 03/24/2021; no acute abnormalities, pronounced diffuse cerebral atrophy. 03/26/2021; awaiting placement, multiple social issues, I called and discussed CT head findings with patient's mother Ms. Santiago She verbalized understanding. Disposition; pending placement 03/30/2021 I resumed service today; Clinically no change, awaiting placement, multiple social issues 03/31/2021; multiple social issues, awaiting placement 04/01/2021; clinically no change, social issues, awaiting placement 04/02/2021; patient response to some sound by moving her head, not purposeful Did not respond to communication, awaiting placement 04/03/2021; pending placement social issues, 04/04/2021; clinically no change, awaiting placement History Interval history: I have seen and examined the patient at the bedside Patient's chart and medications reviewed Spontaneous opening eyes, noncommunicative Mild restlessness Vital signs noted Hospitalist Physical - Constitutional Vitals: Temp Pulse Resp BP Pulse Ox 98.9 F 114 H 20 129/66 97 04/03/21 22:47 04/03/21 22:53 04/03/21 22:47 04/03/21 22:47 04/03/21 22:47 General appearance: Present: well-nourished, obese, other (Anoxic encephalopathy, slightly restless) - EENT Eyes: Present: PERRL, EOM intact - Neck Neck: Present: supple, normal ROM - Respiratory Respiratory effort: normal Respiratory: bilateral: diminished, negative: rales, rhonchi, wheezing - Cardiovascular Rhythm: regular Heart Sounds: Present: S1 & S2 - Extremities Extremities: no ischemia, No edema - Abdominal General gastrointestinal: soft, non-tender, non-distended, normal bowel sounds - Integumentary Integumentary: Present: clear, warm - Psychiatric Psychiatric: other (Noncommunicative) - Neurologic Neurologic: other (Noncommunicative) HEART Score - HEART Score Age: < 45 Risk factors: 1-2 risk factors - Critical Actions Critical Actions: >7 pts:50-65% risk of adverse cardiac event. Early invasive measures Results - Labs CBC & Chem 7: 03/16/21 04:42 03/16/21 04:42 Labs: Laboratory Last Values WBC 9.4 K/mm3 (4.5-11.0) 03/16/21 04:42 RBC 5.06 M/mm3 (3.65-5.03) H 03/16/21 04:42 Hgb 12.2 gm/dl (10.1-14.3) 03/16/21 04:42 Hgb Comment See scanned result 10/04/20 Unknown Hct 37.6 % (30.3-42.9) 03/16/21 04:42 MCV 74 fl (79-97) L 03/16/21 04:42 MCH 24 pg (28-32) L 03/16/21 04:42 MCHC 33 % (30-34) 03/16/21 04:42 RDW 15.8 % (13.2-15.2) H 03/16/21 04:42 Plt Count 311 K/mm3 (140-440) 03/16/21 04:42 Lymph % (Auto) 33.5 % (13.4-35.0) 03/16/21 04:42 Wilkinson % (Auto) 8.1 % (0.0-7.3) H 03/16/21 04:42 Eos % (Auto) 1.7 % (0.0-4.3) 03/16/21 04:42 Baso % (Auto) 0.5 % (0.0-1.8) 03/16/21 04:42 Lymph # (Auto) 3.1 K/mm3 (1.2-5.4) 03/16/21 04:42 Wilkinson # (Auto) 0.8 K/mm3 (0.0-0.8) 03/16/21 04:42 Eos # (Auto) 0.2 K/mm3 (0.0-0.4) 03/16/21 04:42 Baso # (Auto) 0.0 K/mm3 (0.0-0.1) 03/16/21 04:42 Add Manual Diff Complete 02/09/21 10:59 Total Counted 100 02/09/21 10:59 Seg Neutrophils % 56.2 % (40.0-70.0) 03/16/21 04:42 Seg Neuts % (Manual) 58.0 % (40.0-70.0) 02/09/21 10:59 Band Neutrophils % 2.0 % 10/15/20 05:50 Lymphocytes % (Manual) 29.0 % (13.4-35.0) 02/09/21 10:59 Reactive Lymphs % (Man) 1.0 % 10/02/20 12:18 Monocytes % (Manual) 13.0 % (0.0-7.3) H 02/09/21 10:59 Eosinophils % (Manual) 1.0 % (0.0-4.3) 10/29/20 07:56 Myelocytes % 2.0 % 10/02/20 13:05 Metamyelocytes % 1.0 % 10/14/20 04:00 Nucleated RBC % Not Reportable 02/09/21 10:59 Seg Neutrophils # 5.3 K/mm3 (1.8-7.7) 03/16/21 04:42 Seg Neutrophils # Man 3.7 K/mm3 (1.8-7.7) 02/09/21 10:59 Band Neutrophils # 0.0 K/mm3 02/09/21 10:59 Lymphocytes # (Manual) 1.8 K/mm3 (1.2-5.4) 02/09/21 10:59 Abs React Lymphs (Man) 0.0 K/mm3 02/09/21 10:59 Monocytes # (Manual) 0.8 K/mm3 (0.0-0.8) 02/09/21 10:59 Eosinophils # (Manual) 0.0 K/mm3 (0.0-0.4) 02/09/21 10:59 Basophils # (Manual) 0.0 K/mm3 (0.0-0.1) 02/09/21 10:59 Metamyelocytes # 0.0 K/mm3 02/09/21 10:59 Myelocytes # 0.0 K/mm3 02/09/21 10:59 Promyelocytes # 0.0 K/mm3 02/09/21 10:59 Blast Cells # 0.0 K/mm3 02/09/21 10:59 WBC Morphology Not Reportable 02/09/21 10:59 Hypersegmented Neuts Not Reportable 02/09/21 10:59 Hyposegmented Neuts Not Reportable 02/09/21 10:59 Hypogranular Neuts Not Reportable 02/09/21 10:59 Smudge Cells Not Reportable 02/09/21 10:59 Toxic Granulation Not Reportable 02/09/21 10:59 Toxic Vacuolation Not Reportable 02/09/21 10:59 Dohle Bodies Not Reportable 02/09/21 10:59 Pelger-Huet Anomaly Not Reportable 02/09/21 10:59 Ester Rods Not Reportable 02/09/21 10:59 Platelet Estimate Consistent w auto 02/09/21 10:59 Clumped Platelets Not Reportable 02/09/21 10:59 Plt Clumps, EDTA Not Reportable 02/09/21 10:59 Large Platelets Few 02/09/21 10:59 Giant Platelets Not Reportable 02/09/21 10:59 Platelet Satelliting Not Reportable 02/09/21 10:59 Plt Morphology Comment Not Reportable 02/09/21 10:59 RBC Morphology Not Reportable 02/09/21 10:59 Dimorphic RBCs Not Reportable 02/09/21 10:59 Polychromasia Not Reportable 02/09/21 10:59 Hypochromasia 1+ 02/09/21 10:59 Poikilocytosis Not Reportable 02/09/21 10:59 Anisocytosis Not Reportable 02/09/21 10:59 Microcytosis Not Reportable 02/09/21 10:59 Macrocytosis Not Reportable 02/09/21 10:59 Spherocytes Not Reportable 02/09/21 10:59 Pappenheimer Bodies Not Reportable 02/09/21 10:59 Sickle Cells Not Reportable 02/09/21 10:59 Target Cells Not Reportable 02/09/21 10:59 Tear Drop Cells Not Reportable 02/09/21 10:59 Ovalocytes Not Reportable 02/09/21 10:59 Stomatocytes Few 10/14/20 04:00 Helmet Cells Not Reportable 02/09/21 10:59 Burk-[place] Bodies Not Reportable 02/09/21 10:59 [place] Rings Not Reportable 02/09/21 10:59 [place] Cells Not Reportable 02/09/21 10:59 Bite Cells Not Reportable 02/09/21 10:59 Crenated Cell Not Reportable 02/09/21 10:59 Elliptocytes Not Reportable 02/09/21 10:59 Acanthocytes (Spur) Not Reportable 02/09/21 10:59 Rouleaux Not Reportable 02/09/21 10:59 Hemoglobin C Crystals Not Reportable 02/09/21 10:59 Schistocytes Not Reportable 02/09/21 10:59 Malaria parasites Not Reportable 02/09/21 10:59 Sickle Cell Solubility See scanned result 10/04/20 Unknown Hemoglobin A See scanned result 10/04/20 Unknown Hemoglobin A2 See scanned result 10/04/20 Unknown Hemoglobin A2 Prime See scanned result 10/04/20 Unknown Hemoglobin C See scanned result 10/04/20 Unknown Hemoglobin D See scanned result 10/04/20 Unknown Hemoglobin E See scanned result 10/04/20 Unknown Hgb F Diffential Stain See scanned result 10/04/20 Unknown Hemoglobin F Quant See scanned result 10/04/20 Unknown Hemoglobin G See scanned result 10/04/20 Unknown Hemoglobin S See scanned result 10/04/20 Unknown Hemoglobin [place] See scanned result 10/04/20 Unknown Hemoglobin [place] See scanned result 10/04/20 Unknown Hemoglobin Analilia See scanned result 10/04/20 Unknown Variant Hemoglobin See scanned result 10/04/20 Unknown Abnorm Hgb IEF Confirm See scanned result 10/04/20 Unknown Hemoglobin Interpret See scanned result 10/04/20 Unknown Hemoglobinopathy Note See scanned result 10/04/20 Unknown Sharad Bodies Not Reportable 02/09/21 10:59 Hem Pathologist Commnt No 02/09/21 10:59 PT 13.6 Sec. (12.2-14.9) 10/21/20 13:54 INR 1.06 (0.87-1.13) 10/21/20 13:54 APTT 31.6 Sec. (24.2-36.6) 10/03/20 00:40 Fibrinogen 336 mg/dl (211-480) 10/04/20 10:00 D-Dimer 1974.47 ng/mlDDU (0-234) H 11/11/20 13:50 ABG pH 7.459 pH Units (7.350-7.450) H 10/26/20 10:30 POC ABG pCO2 20.7 mmHg (32.0-48.0) L 10/13/20 07:18 ABG pCO2 32.4 mm Hg 10/26/20 10:30 POC ABG pO2 137.9 mmHg (83-108) H 10/13/20 07:18 ABG pO2 112.2 mm Hg (80.0-90.0) H 10/26/20 10:30 POC ABG HCO3 14.8 10/13/20 07:18 ABG HCO3 22.5 mmol/L (20.0-26.0) 10/26/20 10:30 ABG O2 Saturation 98.2 % (95.0-99.0) 10/26/20 10:30 ABG O2 Content 18.5 (0.0-44) 10/26/20 10:30 POC ABG Base Excess -6.9 10/13/20 07:18 ABG Base Excess -0.6 mmol/L (-2.0-3.0) 10/26/20 10:30 ABG Hemoglobin 13.5 gm/dl (12.0-16.0) 10/26/20 10:30 ABG Oxyhemoglobin 98.3 (94-98) H 10/13/20 07:18 ABG Carboxyhemoglobin 1.3 % (0.0-5.0) 10/26/20 10:30 ABG Methemoglobin 0.5 % (0.0-1.5) 10/26/20 10:30 ABG Sodium 135.9 mmol/L (136.0-145.0) L 10/13/20 07:18 ABG Potassium 3.7 mmol/L (3.40-4.50) 10/13/20 07:18 ABG Chloride 111.0 mmol/L (98-107) H 10/13/20 07:18 ABG Glucose 109 mg/dL (65-95) H 10/13/20 07:18 VBG pH 6.949 (7.320-7.420) L* 10/02/20 Unknown Oxyhemoglobin 96.5 % (95.0-99.0) 10/26/20 10:30 Carboxyhemoglobin 0.3 (0.5-1.5) L 10/13/20 07:18 FiO2 25 % 10/26/20 10:30 Sodium 140 mmol/L (137-145) 03/16/21 04:42 Potassium 3.9 mmol/L (3.6-5.0) 03/16/21 04:42 Chloride 103.1 mmol/L (98-107) 03/16/21 04:42 Carbon Dioxide 25 mmol/L (22-30) 03/16/21 04:42 Anion Gap 16 mmol/L 03/16/21 04:42 BUN 12 mg/dL (7-17) 03/16/21 04:42 Creatinine 0.5 mg/dL (0.6-1.2) L 03/16/21 04:42 Estimated GFR > 60 ml/min 03/16/21 04:42 BUN/Creatinine Ratio 24 % 03/16/21 04:42 Glucose 95 mg/dL (65-100) 03/16/21 04:42 POC Glucose 81 mg/dL (70-105) 04/03/21 16:07 Random Insulin 43.2 uIU/mL (<=19.6) H 11/02/20 19:19 Proinsulin See scanned result 11/02/20 19:19 C-Peptide 6.23 ng/mL (0.80-3.85) H 11/02/20 19:19 Lactic Acid 1.90 mmol/L (0.7-2.0) 10/04/20 22:00 Uric Acid 7.5 mg/dL (3.5-7.6) 10/02/20 13:05 Calcium 9.6 mg/dL (8.4-10.2) 03/16/21 04:42 Ionized Calcium 4.4 mg/dL (4.8-5.6) L 10/07/20 21:00 Phosphorus 4.60 mg/dL (2.5-4.5) H 11/13/20 10:05 Magnesium 2.10 mg/dL (1.7-2.3) 11/13/20 10:05 Total Bilirubin 0.80 mg/dL (0.1-1.2) 03/04/21 04:46 AST 51 units/L (5-40) H 03/04/21 04:46 ALT 53 units/L (7-56) 03/04/21 04:46 Alkaline Phosphatase 117 units/L (35-129) 03/04/21 04:46 Lactate Dehydrogenase 769 units/L (91-180) H 10/02/20 13:05 C-Reactive Protein 0.70 mg/dL (0.00-1.30) 11/11/20 13:50 NT-Pro-B Natriuret Pep 2788 pg/mL (0-450) H 10/04/20 10:00 Total Protein 8.4 g/dL (6.3-8.2) H 03/04/21 04:46 Albumin 4.2 g/dL (3.9-5) 03/04/21 04:46 Albumin/Globulin Ratio 1.0 % 03/04/21 04:46 Procalcitonin < 0.05 ng/mL (<0.15) 03/02/21 02:30 Arterial Blood Glucose 109 mg/dL (65-95) H 10/13/20 07:18 Arterial Blood Ionized Calcium 4.6 mg/dL (4.6-5.3) 10/13/20 07:18 Urine Color Yellow (Yellow) 01/25/21 09:51 Urine Turbidity Cloudy (Clear) 01/25/21 09:51 Urine pH 7.0 (5.0-7.0) 01/25/21 09:51 Ur Specific [place] 1.011 (1.003-1.030) 01/25/21 09:51 Urine Protein <15 mg/dl mg/dL (Negative) 01/25/21 09:51 Urine Glucose (UA) Neg mg/dL (Negative) 01/25/21 09:51 Urine Ketones Neg mg/dL (Negative) 01/25/21 09:51 Urine Blood Neg (Negative) 01/25/21 09:51 Urine Nitrite Neg (Negative) 01/25/21 09:51 Urine Bilirubin Neg (Negative) 01/25/21 09:51 Urine Urobilinogen < 2.0 mg/dL (<2.0) 01/25/21 09:51 Ur Leukocyte Esterase Neg (Negative) 01/25/21 09:51 Urine WBC (Auto) 6.0 /HPF (0.0-6.0) 01/25/21 09:51 Urine RBC (Auto) 3.0 /HPF (0.0-6.0) 01/25/21 09:51 U Epithel Cells (Auto) < 1.0 /HPF (0-13.0) 01/25/21 09:51 Urine Bacteria (Auto) 1+ /HPF (Negative) 01/18/21 08:47 Urine WBC Clumps 3+ /HPF 11/11/20 13:50 Calcium Oxalate Crystal Few 11/11/20 13:50 Urine Mucus Few /HPF 01/25/21 09:51 Urine Yeast (Budding) 2+ /HPF 01/25/21 09:51 Vancomycin Trough 12.6 ug/mL (5.0-20.0) 10/21/20 13:54 Random Vancomycin 10.7 ug/mL (0-40.0) 10/16/20 13:09 Phenytoin 5.7 ug/mL (10.0-20.0) L 10/13/20 07:00 C. difficile Tox (PCR) Positive (Negative) 10/16/20 10:22 Coronavirus (PCR) Negative (Negative) 10/08/20 14:15 Blood Type O POSITIVE 10/02/20 12:50 Antibody Screen Negative 10/02/20 12:50 Crossmatch See Detail 10/02/20 12:50 - Diagnostic Impressions Diagnostic Impressions: Echocardiogram 10/03/20 13:42 Transthoracic Echocardiogram Indication: S/P Cardiac Arrest R/O Cardiomyopathy BP: 133/71 Conclusions *Global left ventricular systolic function is normal. *The estimated ejection fraction is 60-65%. *There is trace of mitral regurgitation. *The right 0heart chambers are both slightly dilated. *There is mild tricuspid regurgitation. *There is mild-moderate pulmonary hypertension. *The right ventricular systolic pressure is calculated at 44 mmHg. *The study quality is technically difficult. Findings Procedure Info: The study quality is technically difficult. The study is technically limited due to patient body habitus. The study was technically limited due to the patient's inability to lay in the left lateral decubitus position. Left Ventricle: The left ventricular chamber size is normal. There is no left ventricular hypertrophy. Global left ventricular systolic function is normal. The estimated ejection fraction is 60-65%. Left Atrium: The left atrial chamber size is normal. Right Ventricle: The right ventricle is slightly dilated. Right Atrium: The right atrium is mildly dilated. Aortic Valve: The aortic valve leaflets are mildly thickened. There is no evidence of aortic regurgitation. There is no evidence of aortic stenosis. Mitral Valve: The mitral valve leaflets are mildly thickened. There is trace of mitral regurgitation. There is no evidence of mitral stenosis. Tricuspid Valve: There is mild tricuspid regurgitation. The right ventricular systolic pressure is calculated at 44 mmHg. There is evidence of mild pulmonary hypertension. Pulmonic Valve: There is trace pulmonic regurgitation. Pericardium: There is no pericardial effusion. Aorta: There is no dilatation of the ascending aorta. There is no dilatation of the aortic root. Venous: The inferior vena cava is dilated. Measurements Chambers 2D Name Value Normal Range IVSd (2D) 1 cm (0.6 - 1.1) LVPWd (2D) 1.01 cm (0.6 - 1.1) LVIDd (2D) 4.58 cm (3.7 - 5.6) LVIDs (2D) 3.17 cm (2 - 3.8) LV FS (2D) 30.93 % - EF Teichholz (2D) 58.66 % - Ao root diameter (2D) 2.94 cm (2 - 3.7) Volumes/Mass Name Value Normal Range LA ESV SP 4CH (A/L) 72.82 ml - LA ESV SP 2CH (A/L) 66.86 ml - LA ESV BP (A/L) 74.49 ml - LA ESV SP 4CH (MOD) 71.03 ml - LA ESV SP 2CH (MOD) 64.3 ml - LV EDV SP 4CH (MOD) 98.82 ml - LV ESV SP 4CH (MOD) 24.8 ml - EF SP 4CH (MOD) 74.9 % - LV EDV SP 2CH (MOD) 86.1 ml - LV ESV SP 2CH (MOD) 36.93 ml - EF SP 2CH (MOD) 57.11 % - LV EDV BP 94.4 ml - LV ESV BP 32.66 ml - BP EF (MOD) 65.4 % - Diastolic/Systolic Function Name Value Normal Range MV E-wave Vmax 1.04 m/sec - MV deceleration time 160.46 msec - MV A-wave Vmax 0.92 m/sec - MV E:A ratio 1.14 ratio - Aortic Valve Name Value Normal Range AV Vmax 2.12 m/sec - AV VTI 22.37 cm - AV peak gradient 17.95 mmHg - AV mean gradient 7.29 mmHg - LVOT diameter 2.01 cm - LVOT Vmax 1.8 m/sec - LVOT VTI 27.17 cm - LVOT peak gradient 12.91 mmHg - LVOT mean gradient 6.83 mmHg - SV LVOT 86.42 ml - ANITA (continuity Vmax) 2.7 cm2 - ANITA (continuity VTI) 3.86 cm2 - Ascending Ao 3.18 cm - Tricuspid Valve Name Value Normal Range TV E-wave Vmax 0.88 m/sec - TR Vmax 3.01 m/sec - TR peak gradient 36.27 mmHg - RAP 8 mmHg - RVSP 44 mmHg - IVC diameter 2.65 cm (1.2 - 2.3) Pulmonic Valve/Qp:Qs Name Value Normal Range PV Vmax 1.22 m/sec - PV peak gradient 5.91 mmHg - RVOT Vmax 0.87 m/sec - RVOT VTI 13.32 cm - RVOT peak gradient 3 mmHg - PV acceleration time 110.37 msec - [place]/IV: Voiding Method Incontinent IV Catheter Type [Right Foot] INT / Saline Lock IV Catheter Type [Left Forearm Peripheral IV ] IV Catheter Type [Left Wrist] INT / Saline Lock IV Catheter Type [Right Hand] INT / Saline Lock IV Catheter Type [Right INT / Saline Lock Antecubital] IV Catheter Type [Right Upper Mid-line arm] IV Catheter Type [Left Triple Lumen Cath Internal Jugular] IV Catheter Type [Left Hand] Peripheral IV IV Catheter Type [Left Peripheral IV Antecubital] Active Medications - Current Medications Current Medications: Generic Name Dose Route Start Last Admin Trade Name Freq PRN Reason Stop Dose Admin Acetaminophen 650 mg 10/05/20 16:34 04/01/21 22:29 Acetaminophen 325 Mg/10.15 Ml Oral Liqd Unit Dose FEEDTUBE 650 mg Q6H PRN Administration Non Cardiac Pain or Temp>100.5 Albuterol 2.5 mg 11/05/20 13:03 11/06/20 13:04 Albuterol 2.5 Mg/3 Ml Nebu IH 2.5 mg Q4HRT PRN Administration Shortness Of Breath Alprazolam 0.25 mg 01/20/21 13:33 04/03/21 23:02 Alprazolam 0.25 Mg Tab PO 0.25 mg Q8H PRN Administration Anxiety Lipase/Protease/Amylase 1 each 10/05/20 11:09 Lipase 10,500/Protease 25,000/Amylase 43,750 (Units) Dr Barakat FEEDTUBE PRN PRN For Clogged Feeding Tube Enoxaparin Sodium 40 mg 10/22/20 10:00 04/03/21 08:59 Enoxaparin 40 Mg/0.4 Ml Inj SUB-Q 40 mg DAILY ERINN Administration Protocol Famotidine 20 mg 10/07/20 10:00 04/03/21 22:53 Famotidine 20 Mg Tab PO 20 mg BID ERINN Administration Hydrophilic Ointment 1 applic 01/03/21 13:00 02/16/21 09:56 Lip Therapy Vaseline TP 1 applic DIRECT PRN Administration Dry Lips Metoprolol Tartrate 50 mg 02/02/21 16:01 04/03/21 22:53 Metoprolol Tartrate 25 Mg Tab PO 50 mg BID ERINN Administration Morphine Sulfate 2 mg 01/20/21 13:33 Morphine 2 Mg/1 Ml Inj IV Q4H PRN Pain, Moderate (4-6) Ondansetron HCl 4 mg 02/10/21 11:38 02/10/21 13:18 Ondansetron 4 Mg/2 Ml Inj IV 4 mg Q4H PRN Administration Nausea And Vomiting Simple Syrup 15 ml 10/05/20 11:09 Simple Syrup 15 Ml FEEDTUBE PRN PRN Hypoglycemia Simple Syrup 30 ml 10/05/20 11:09 06/08/21 06:11 Simple Syrup 15 Ml FEEDTUBE 30 ml PRN PRN Administration Hypoglycemia Sodium Bicarbonate 325 mg 10/05/20 11:09 12/16/20 08:19 Sodium Bicarbonate 325 Mg Tab FEEDTUBE 325 mg PRN PRN Administration For Clogged Feeding Tube Nutrition/Malnutrition Assess - Dietary Evaluation Nutrition/Malnutrition Findings: Nutrition Notes Start: 10/04/20 11:13 Freq: Status: Active Protocol: Document 03/31/21 14:05 (Rec: 03/31/21 14:10 [id number]) Nutrition Notes Initial or Follow up Reassessment Other Pertinent Diagnosis s/p cardiac arrest x 2, anoxic brain injury Current Diet TF - Promote at 65ml/hr Labs/Tests Reviewed Pertinent Medications Reviewed Height 5 ft 8 in Weight 91 kg [place] Body Weight (kg) 63.63 BMI 30.4 Weight change and time frame wt fluctuations Weight Status Overweight Subjective/Other Information Pt tolerating TF at goal rate, per RN. Pt continues to wait placement. Percent of energy/protein needs met: 100%/100% Burn Absent Trauma Absent GI Symptoms None Difficulty In Swallowing,Chewing Current % PO Negligible Minimum of two criteria No #1 Nutrition Diagnosis Inadequate oral intake Diagnosis Progress(for reassessment Continues documentation) Is patient on ventilator? No Is Patient Ambulatory and/or Out of Bed No REE-([facility]-confined to bed) 2003.180 Kcal/Kg value to use for calculation 17 Approximate Energy Requirements Using 1547 kcal/Kg Calculation Used for Recommendations [facility] Additional Notes Pro needs 0.8-1g/k-89g/ day Fluid needs 1ml/kcal Nutrition Intervention Nutrition Support: Continue Promote at 65 mL/hr Flush 100 ml q4h Kcal 1,560 Protein (gm) 98 Fluid (mL) 1,309 Goal #1 TF tolerance Goal #2 TF to meet at least 75% estimated energy and protein needs. Follow-Up By: 04/07/21 Additional Comments FU for stable TF
[2021-04-04] MEDS: ENOXAPARIN 40 MG/0.4 ML INJ SUB-Q SCH (10:09)
[2021-04-04] MEDS: FAMOTIDINE 20 MG TAB PO SCH ×2 (10:09→22:43)
[2021-04-04] MEDS: METOPROLOL TARTRATE 25 MG TAB PO SCH ×2 (10:09→22:42)
[2021-04-04] MEDS: ALPRAZolam 0.25 MG TAB PO PRN ×2 (10:14→22:44)
--- NOTE | 2021-04-05 09:08 | Progress Note ---
Assessment and Plan Assessment and plan: --s/p Cardiac arrest x2 on admission and on 10/07 ACLS protocol followed by revival, Echo showed preserved Ef --Anoxic brain injury, Developed following cardiac arrest, patient does not follow commands Restless and agitated continue supportive care f/u CT head without contrast 03/24/2021 [as requested by the family]; no acute abnormality Pronounced diffuse cerebral atrophy --Shock-resolved now awaiting placement, s/p pressor support --DIC (disseminated intravascular coagulation) vs HELLP syndrome , Resolved --Possible Eclampsia/HELLP Syndrome, Resolved --ADOLPH-resolved, Stable --Sepsis 2/2 UTI s/p cefepime to cover possible pseudomonas as sputum is also growing GN rods till 01/04/21 Previous urine culture grew pansensitive ecoli Blood cultures from 12/27-no growth --Hypernatremia, resolved, cont free water with TF --DVT prophylaxis Patient presented with DIC No anticoagulants Overall prognosis extremely poor. DC planning per case management, awaiting placement Multiple social issue Brief history and hospital course; 30 year old -F[place] female CHE 10/25/20 at 36w5d who presents with seizures in triage on 10/02/20. Pt was not able to provide history but per pt's , she presented to the hospital to return a 24 hour urine specimen for analysis. She then suddenly reported that she did not feel good. She was taken to labor and delivery and shortly after arrival, she began seizing. During this time, a code met was called because the patient became hypoxic. She was then noted to be without a pulse. Chest compressions were started immediately, and the patient was emergently taken to the operating room for delivery of the fetus. Off note, This patient has had care at [facility] with comanagement by [facility] since 11 wks complicated by ADHD, morbid obesity, generalized anxiety disorder, panic attacks, chronic narcotic use, fibromyalgia, GERD, Irritable Bowel Syndrome, Migraines, h/o endometrial ablation and ovarian vein embolization, genital herpes, insomnia, LGA fetus, nausea and vomiting, polyhydramnios, quad screen positive for Down's Syndrome, and previous x 3. She was GBS negative. 10/02/2020-03/15/2021 daily hospital course reviewed 03/16/2021; Awaiting placement. Patient is on PEG tube feeding. Saturating well on room air. Patient is mildly tachycardic. Pending placement. 03/17/2021; Awaiting placement. Patient is on PEG tube feeding. Saturating well on room air. Patient is mildly tachycardic. Pending placement. 03/18/2021; awaiting placement. 03/19/2021; awaiting placement. 03/20/2021; awaiting placement. 03/21/21; awaiting placement. 03/22/2021; Awaiting placement. Patient is on PEG tube feeding. Saturating well on room air. Patient is mildly tachycardic. Pending placement. 03/23/2021; multiple social issues, awaiting LTAC placement 03/24/2021; pending placement. Clinically no change, I discussed with patient's mother extensively, she had numerous questions answered all of them She requested a repeat CT head as she noticed significant change in her daughters level of consciousness. Will check CT head without contrast 03/25/2021; I discussed with patient's mother extensively yesterday 03/24/2021, she requested a repeat CT scan as she feels that patient is responding f/u CT head without contrast 03/24/2021; no acute abnormalities, pronounced diffuse cerebral atrophy. 03/26/2021; awaiting placement, multiple social issues, I called and discussed CT head findings with patient's mother Ms. Santiago She verbalized understanding. Disposition; pending placement 03/30/2021 I resumed service today; Clinically no change, awaiting placement, multiple social issues 03/31/2021; multiple social issues, awaiting placement 04/01/2021; clinically no change, social issues, awaiting placement 04/02/2021; patient response to some sound by moving her head, not purposeful Did not respond to communication, awaiting placement 04/03/2021; pending placement social issues, 04/04/2021; clinically no change, awaiting placement 04/05/2021; awaiting placement, clinically stable History Interval history: I have this morning seen and examined the patient at the bedside Patient clinically no change Spontaneous opening eyes , not in acute distress Vital signs reviewed Hospitalist Physical - Constitutional Vitals: Temp Pulse Resp BP Pulse Ox 99.2 F 109 H 20 137/89 92 04/04/21 21:43 04/04/21 22:42 04/04/21 21:43 04/04/21 22:42 04/04/21 21:43 General appearance: Present: well-nourished, obese, other (Anoxic encephalopathy, slightly restless) - EENT Eyes: Present: PERRL, EOM intact - Neck Neck: Present: supple, normal ROM - Respiratory Respiratory effort: normal Respiratory: bilateral: diminished, negative: rales, rhonchi, wheezing - Cardiovascular Rhythm: regular Heart Sounds: Present: S1 & S2 - Extremities Extremities: no ischemia, No edema - Abdominal General gastrointestinal: soft, non-tender, non-distended, other (PEG tube in place) - Integumentary Integumentary: Present: clear, warm - Psychiatric Psychiatric: other (Noncommunicative) - Neurologic Neurologic: other (Noncommunicative) HEART Score - HEART Score Age: < 45 Risk factors: 1-2 risk factors - Critical Actions Critical Actions: >7 pts:50-65% risk of adverse cardiac event. Early invasive measures Results - Labs CBC & Chem 7: 03/16/21 04:42 03/16/21 04:42 Labs: Laboratory Last Values WBC 9.4 K/mm3 (4.5-11.0) 03/16/21 04:42 RBC 5.06 M/mm3 (3.65-5.03) H 03/16/21 04:42 Hgb 12.2 gm/dl (10.1-14.3) 03/16/21 04:42 Hgb Comment See scanned result 10/04/20 Unknown Hct 37.6 % (30.3-42.9) 03/16/21 04:42 MCV 74 fl (79-97) L 03/16/21 04:42 MCH 24 pg (28-32) L 03/16/21 04:42 MCHC 33 % (30-34) 03/16/21 04:42 RDW 15.8 % (13.2-15.2) H 03/16/21 04:42 Plt Count 311 K/mm3 (140-440) 03/16/21 04:42 Lymph % (Auto) 33.5 % (13.4-35.0) 03/16/21 04:42 Nicholas % (Auto) 8.1 % (0.0-7.3) H 03/16/21 04:42 Eos % (Auto) 1.7 % (0.0-4.3) 03/16/21 04:42 Baso % (Auto) 0.5 % (0.0-1.8) 03/16/21 04:42 Lymph # (Auto) 3.1 K/mm3 (1.2-5.4) 03/16/21 04:42 Nicholas # (Auto) 0.8 K/mm3 (0.0-0.8) 03/16/21 04:42 Eos # (Auto) 0.2 K/mm3 (0.0-0.4) 03/16/21 04:42 Baso # (Auto) 0.0 K/mm3 (0.0-0.1) 03/16/21 04:42 Add Manual Diff Complete 02/09/21 10:59 Total Counted 100 02/09/21 10:59 Seg Neutrophils % 56.2 % (40.0-70.0) 03/16/21 04:42 Seg Neuts % (Manual) 58.0 % (40.0-70.0) 02/09/21 10:59 Band Neutrophils % 2.0 % 10/15/20 05:50 Lymphocytes % (Manual) 29.0 % (13.4-35.0) 02/09/21 10:59 Reactive Lymphs % (Man) 1.0 % 10/02/20 12:18 Monocytes % (Manual) 13.0 % (0.0-7.3) H 02/09/21 10:59 Eosinophils % (Manual) 1.0 % (0.0-4.3) 10/29/20 07:56 Myelocytes % 2.0 % 10/02/20 13:05 Metamyelocytes % 1.0 % 10/14/20 04:00 Nucleated RBC % Not Reportable 02/09/21 10:59 Seg Neutrophils # 5.3 K/mm3 (1.8-7.7) 03/16/21 04:42 Seg Neutrophils # Man 3.7 K/mm3 (1.8-7.7) 02/09/21 10:59 Band Neutrophils # 0.0 K/mm3 02/09/21 10:59 Lymphocytes # (Manual) 1.8 K/mm3 (1.2-5.4) 02/09/21 10:59 Abs React Lymphs (Man) 0.0 K/mm3 02/09/21 10:59 Monocytes # (Manual) 0.8 K/mm3 (0.0-0.8) 02/09/21 10:59 Eosinophils # (Manual) 0.0 K/mm3 (0.0-0.4) 02/09/21 10:59 Basophils # (Manual) 0.0 K/mm3 (0.0-0.1) 02/09/21 10:59 Metamyelocytes # 0.0 K/mm3 02/09/21 10:59 Myelocytes # 0.0 K/mm3 02/09/21 10:59 Promyelocytes # 0.0 K/mm3 02/09/21 10:59 Blast Cells # 0.0 K/mm3 02/09/21 10:59 WBC Morphology Not Reportable 02/09/21 10:59 Hypersegmented Neuts Not Reportable 02/09/21 10:59 Hyposegmented Neuts Not Reportable 02/09/21 10:59 Hypogranular Neuts Not Reportable 02/09/21 10:59 Smudge Cells Not Reportable 02/09/21 10:59 Toxic Granulation Not Reportable 02/09/21 10:59 Toxic Vacuolation Not Reportable 02/09/21 10:59 Dohle Bodies Not Reportable 02/09/21 10:59 Pelger-Huet Anomaly Not Reportable 02/09/21 10:59 Ester Rods Not Reportable 02/09/21 10:59 Platelet Estimate Consistent w auto 02/09/21 10:59 Clumped Platelets Not Reportable 02/09/21 10:59 Plt Clumps, EDTA Not Reportable 02/09/21 10:59 Large Platelets Few 02/09/21 10:59 Giant Platelets Not Reportable 02/09/21 10:59 Platelet Satelliting Not Reportable 02/09/21 10:59 Plt Morphology Comment Not Reportable 02/09/21 10:59 RBC Morphology Not Reportable 02/09/21 10:59 Dimorphic RBCs Not Reportable 02/09/21 10:59 Polychromasia Not Reportable 02/09/21 10:59 Hypochromasia 1+ 02/09/21 10:59 Poikilocytosis Not Reportable 02/09/21 10:59 Anisocytosis Not Reportable 02/09/21 10:59 Microcytosis Not Reportable 02/09/21 10:59 Macrocytosis Not Reportable 02/09/21 10:59 Spherocytes Not Reportable 02/09/21 10:59 Pappenheimer Bodies Not Reportable 02/09/21 10:59 Sickle Cells Not Reportable 02/09/21 10:59 Target Cells Not Reportable 02/09/21 10:59 Tear Drop Cells Not Reportable 02/09/21 10:59 Ovalocytes Not Reportable 02/09/21 10:59 Stomatocytes Few 10/14/20 04:00 Helmet Cells Not Reportable 02/09/21 10:59 Burk-Colbert Bodies Not Reportable 02/09/21 10:59 Scio Rings Not Reportable 02/09/21 10:59 Antoine Cells Not Reportable 02/09/21 10:59 Bite Cells Not Reportable 02/09/21 10:59 Crenated Cell Not Reportable 02/09/21 10:59 Elliptocytes Not Reportable 02/09/21 10:59 Acanthocytes (Spur) Not Reportable 02/09/21 10:59 Rouleaux Not Reportable 02/09/21 10:59 Hemoglobin C Crystals Not Reportable 02/09/21 10:59 Schistocytes Not Reportable 02/09/21 10:59 Malaria parasites Not Reportable 02/09/21 10:59 Sickle Cell Solubility See scanned result 10/04/20 Unknown Hemoglobin A See scanned result 10/04/20 Unknown Hemoglobin A2 See scanned result 10/04/20 Unknown Hemoglobin A2 Prime See scanned result 10/04/20 Unknown Hemoglobin C See scanned result 10/04/20 Unknown Hemoglobin D See scanned result 10/04/20 Unknown Hemoglobin E See scanned result 10/04/20 Unknown Hgb F Diffential Stain See scanned result 10/04/20 Unknown Hemoglobin F Quant See scanned result 10/04/20 Unknown Hemoglobin G See scanned result 10/04/20 Unknown Hemoglobin S See scanned result 10/04/20 Unknown Hemoglobin O-[place] See scanned result 10/04/20 Unknown Hemoglobin Barts See scanned result 10/04/20 Unknown Hemoglobin Analilia See scanned result 10/04/20 Unknown Variant Hemoglobin See scanned result 10/04/20 Unknown Abnorm Hgb IEF Confirm See scanned result 10/04/20 Unknown Hemoglobin Interpret See scanned result 10/04/20 Unknown Hemoglobinopathy Note See scanned result 10/04/20 Unknown Sharad Bodies Not Reportable 02/09/21 10:59 Hem Pathologist Commnt No 02/09/21 10:59 PT 13.6 Sec. (12.2-14.9) 10/21/20 13:54 INR 1.06 (0.87-1.13) 10/21/20 13:54 APTT 31.6 Sec. (24.2-36.6) 10/03/20 00:40 Fibrinogen 336 mg/dl (211-480) 10/04/20 10:00 D-Dimer 1974.47 ng/mlDDU (0-234) H 11/11/20 13:50 ABG pH 7.459 pH Units (7.350-7.450) H 10/26/20 10:30 POC ABG pCO2 20.7 mmHg (32.0-48.0) L 10/13/20 07:18 ABG pCO2 32.4 mm Hg 10/26/20 10:30 POC ABG pO2 137.9 mmHg (83-108) H 10/13/20 07:18 ABG pO2 112.2 mm Hg (80.0-90.0) H 10/26/20 10:30 POC ABG HCO3 14.8 10/13/20 07:18 ABG HCO3 22.5 mmol/L (20.0-26.0) 10/26/20 10:30 ABG O2 Saturation 98.2 % (95.0-99.0) 10/26/20 10:30 ABG O2 Content 18.5 (0.0-44) 10/26/20 10:30 POC ABG Base Excess -6.9 10/13/20 07:18 ABG Base Excess -0.6 mmol/L (-2.0-3.0) 10/26/20 10:30 ABG Hemoglobin 13.5 gm/dl (12.0-16.0) 10/26/20 10:30 ABG Oxyhemoglobin 98.3 (94-98) H 10/13/20 07:18 ABG Carboxyhemoglobin 1.3 % (0.0-5.0) 10/26/20 10:30 ABG Methemoglobin 0.5 % (0.0-1.5) 10/26/20 10:30 ABG Sodium 135.9 mmol/L (136.0-145.0) L 10/13/20 07:18 ABG Potassium 3.7 mmol/L (3.40-4.50) 10/13/20 07:18 ABG Chloride 111.0 mmol/L (98-107) H 10/13/20 07:18 ABG Glucose 109 mg/dL (65-95) H 10/13/20 07:18 VBG pH 6.949 (7.320-7.420) L* 10/02/20 Unknown Oxyhemoglobin 96.5 % (95.0-99.0) 10/26/20 10:30 Carboxyhemoglobin 0.3 (0.5-1.5) L 10/13/20 07:18 FiO2 25 % 10/26/20 10:30 Sodium 140 mmol/L (137-145) 03/16/21 04:42 Potassium 3.9 mmol/L (3.6-5.0) 03/16/21 04:42 Chloride 103.1 mmol/L (98-107) 03/16/21 04:42 Carbon Dioxide 25 mmol/L (22-30) 03/16/21 04:42 Anion Gap 16 mmol/L 03/16/21 04:42 BUN 12 mg/dL (7-17) 03/16/21 04:42 Creatinine 0.5 mg/dL (0.6-1.2) L 03/16/21 04:42 Estimated GFR > 60 ml/min 03/16/21 04:42 BUN/Creatinine Ratio 24 % 03/16/21 04:42 Glucose 95 mg/dL (65-100) 03/16/21 04:42 POC Glucose 81 mg/dL (70-105) 04/03/21 16:07 Random Insulin 43.2 uIU/mL (<=19.6) H 11/02/20 19:19 Proinsulin See scanned result 11/02/20 19:19 C-Peptide 6.23 ng/mL (0.80-3.85) H 11/02/20 19:19 Lactic Acid 1.90 mmol/L (0.7-2.0) 10/04/20 22:00 Uric Acid 7.5 mg/dL (3.5-7.6) 10/02/20 13:05 Calcium 9.6 mg/dL (8.4-10.2) 03/16/21 04:42 Ionized Calcium 4.4 mg/dL (4.8-5.6) L 10/07/20 21:00 Phosphorus 4.60 mg/dL (2.5-4.5) H 11/13/20 10:05 Magnesium 2.10 mg/dL (1.7-2.3) 11/13/20 10:05 Total Bilirubin 0.80 mg/dL (0.1-1.2) 03/04/21 04:46 AST 51 units/L (5-40) H 03/04/21 04:46 ALT 53 units/L (7-56) 03/04/21 04:46 Alkaline Phosphatase 117 units/L (35-129) 03/04/21 04:46 Lactate Dehydrogenase 769 units/L (91-180) H 10/02/20 13:05 C-Reactive Protein 0.70 mg/dL (0.00-1.30) 11/11/20 13:50 NT-Pro-B Natriuret Pep 2788 pg/mL (0-450) H 10/04/20 10:00 Total Protein 8.4 g/dL (6.3-8.2) H 03/04/21 04:46 Albumin 4.2 g/dL (3.9-5) 03/04/21 04:46 Albumin/Globulin Ratio 1.0 % 03/04/21 04:46 Procalcitonin < 0.05 ng/mL (<0.15) 03/02/21 02:30 Arterial Blood Glucose 109 mg/dL (65-95) H 10/13/20 07:18 Arterial Blood Ionized Calcium 4.6 mg/dL (4.6-5.3) 10/13/20 07:18 Urine Color Yellow (Yellow) 01/25/21 09:51 Urine Turbidity Cloudy (Clear) 01/25/21 09:51 Urine pH 7.0 (5.0-7.0) 01/25/21 09:51 Ur Specific [place] 1.011 (1.003-1.030) 01/25/21 09:51 Urine Protein <15 mg/dl mg/dL (Negative) 01/25/21 09:51 Urine Glucose (UA) Neg mg/dL (Negative) 01/25/21 09:51 Urine Ketones Neg mg/dL (Negative) 01/25/21 09:51 Urine Blood Neg (Negative) 01/25/21 09:51 Urine Nitrite Neg (Negative) 01/25/21 09:51 Urine Bilirubin Neg (Negative) 01/25/21 09:51 Urine Urobilinogen < 2.0 mg/dL (<2.0) 01/25/21 09:51 Ur Leukocyte Esterase Neg (Negative) 01/25/21 09:51 Urine WBC (Auto) 6.0 /HPF (0.0-6.0) 01/25/21 09:51 Urine RBC (Auto) 3.0 /HPF (0.0-6.0) 01/25/21 09:51 U Epithel Cells (Auto) < 1.0 /HPF (0-13.0) 01/25/21 09:51 Urine Bacteria (Auto) 1+ /HPF (Negative) 01/18/21 08:47 Urine WBC Clumps 3+ /HPF 11/11/20 13:50 Calcium Oxalate Crystal Few 11/11/20 13:50 Urine Mucus Few /HPF 01/25/21 09:51 Urine Yeast (Budding) 2+ /HPF 01/25/21 09:51 Vancomycin Trough 12.6 ug/mL (5.0-20.0) 10/21/20 13:54 Random Vancomycin 10.7 ug/mL (0-40.0) 10/16/20 13:09 Phenytoin 5.7 ug/mL (10.0-20.0) L 10/13/20 07:00 C. difficile Tox (PCR) Positive (Negative) 10/16/20 10:22 Coronavirus (PCR) Negative (Negative) 10/08/20 14:15 Blood Type O POSITIVE 10/02/20 12:50 Antibody Screen Negative 10/02/20 12:50 Crossmatch See Detail 10/02/20 12:50 - Diagnostic Impressions Diagnostic Impressions: Echocardiogram 10/03/20 13:42 Transthoracic Echocardiogram Indication: S/P Cardiac Arrest R/O Cardiomyopathy BP: 133/71 Conclusions *Global left ventricular systolic function is normal. *The estimated ejection fraction is 60-65%. *There is trace of mitral regurgitation. *The right 0heart chambers are both slightly dilated. *There is mild tricuspid regurgitation. *There is mild-moderate pulmonary hypertension. *The right ventricular systolic pressure is calculated at 44 mmHg. *The study quality is technically difficult. Findings Procedure Info: The study quality is technically difficult. The study is technically limited due to patient body habitus. The study was technically limited due to the patient's inability to lay in the left lateral decubitus position. Left Ventricle: The left ventricular chamber size is normal. There is no left ventricular hypertrophy. Global left ventricular systolic function is normal. The estimated ejection fraction is 60-65%. Left Atrium: The left atrial chamber size is normal. Right Ventricle: The right ventricle is slightly dilated. Right Atrium: The right atrium is mildly dilated. Aortic Valve: The aortic valve leaflets are mildly thickened. There is no evidence of aortic regurgitation. There is no evidence of aortic stenosis. Mitral Valve: The mitral valve leaflets are mildly thickened. There is trace of mitral regurgitation. There is no evidence of mitral stenosis. Tricuspid Valve: There is mild tricuspid regurgitation. The right ventricular systolic pressure is calculated at 44 mmHg. There is evidence of mild pulmonary hypertension. Pulmonic Valve: There is trace pulmonic regurgitation. Pericardium: There is no pericardial effusion. Aorta: There is no dilatation of the ascending aorta. There is no dilatation of the aortic root. Venous: The inferior vena cava is dilated. Measurements Chambers 2D Name Value Normal Range IVSd (2D) 1 cm (0.6 - 1.1) LVPWd (2D) 1.01 cm (0.6 - 1.1) LVIDd (2D) 4.58 cm (3.7 - 5.6) LVIDs (2D) 3.17 cm (2 - 3.8) LV FS (2D) 30.93 % - EF Teichholz (2D) 58.66 % - Ao root diameter (2D) 2.94 cm (2 - 3.7) Volumes/Mass Name Value Normal Range LA ESV SP 4CH (A/L) 72.82 ml - LA ESV SP 2CH (A/L) 66.86 ml - LA ESV BP (A/L) 74.49 ml - LA ESV SP 4CH (MOD) 71.03 ml - LA ESV SP 2CH (MOD) 64.3 ml - LV EDV SP 4CH (MOD) 98.82 ml - LV ESV SP 4CH (MOD) 24.8 ml - EF SP 4CH (MOD) 74.9 % - LV EDV SP 2CH (MOD) 86.1 ml - LV ESV SP 2CH (MOD) 36.93 ml - EF SP 2CH (MOD) 57.11 % - LV EDV BP 94.4 ml - LV ESV BP 32.66 ml - BP EF (MOD) 65.4 % - Diastolic/Systolic Function Name Value Normal Range MV E-wave Vmax 1.04 m/sec - MV deceleration time 160.46 msec - MV A-wave Vmax 0.92 m/sec - MV E:A ratio 1.14 ratio - Aortic Valve Name Value Normal Range AV Vmax 2.12 m/sec - AV VTI 22.37 cm - AV peak gradient 17.95 mmHg - AV mean gradient 7.29 mmHg - LVOT diameter 2.01 cm - LVOT Vmax 1.8 m/sec - LVOT VTI 27.17 cm - LVOT peak gradient 12.91 mmHg - LVOT mean gradient 6.83 mmHg - SV LVOT 86.42 ml - ANITA (continuity Vmax) 2.7 cm2 - ANITA (continuity VTI) 3.86 cm2 - Ascending Ao 3.18 cm - Tricuspid Valve Name Value Normal Range TV E-wave Vmax 0.88 m/sec - TR Vmax 3.01 m/sec - TR peak gradient 36.27 mmHg - RAP 8 mmHg - RVSP 44 mmHg - IVC diameter 2.65 cm (1.2 - 2.3) Pulmonic Valve/Qp:Qs Name Value Normal Range PV Vmax 1.22 m/sec - PV peak gradient 5.91 mmHg - RVOT Vmax 0.87 m/sec - RVOT VTI 13.32 cm - RVOT peak gradient 3 mmHg - PV acceleration time 110.37 msec - [place]/IV: Voiding Method Incontinent IV Catheter Type [Right Foot] INT / Saline Lock IV Catheter Type [Left Forearm Peripheral IV ] IV Catheter Type [Left Wrist] INT / Saline Lock IV Catheter Type [Right Hand] INT / Saline Lock IV Catheter Type [Right INT / Saline Lock Antecubital] IV Catheter Type [Right Upper Mid-line arm] IV Catheter Type [Left Triple Lumen Cath Internal Jugular] IV Catheter Type [Left Hand] Peripheral IV IV Catheter Type [Left Peripheral IV Antecubital] Active Medications - Current Medications Current Medications: Generic Name Dose Route Start Last Admin Trade Name Freq PRN Reason Stop Dose Admin Acetaminophen 650 mg 10/05/20 16:34 04/01/21 22:29 Acetaminophen 325 Mg/10.15 Ml Oral Liqd Unit Dose FEEDTUBE 650 mg Q6H PRN Administration Non Cardiac Pain or Temp>100.5 Albuterol 2.5 mg 11/05/20 13:03 11/06/20 13:04 Albuterol 2.5 Mg/3 Ml Nebu IH 2.5 mg Q4HRT PRN Administration Shortness Of Breath Alprazolam 0.25 mg 01/20/21 13:33 04/04/21 22:44 Alprazolam 0.25 Mg Tab PO 0.25 mg Q8H PRN Administration Anxiety Lipase/Protease/Amylase 1 each 10/05/20 11:09 Lipase 10,500/Protease 25,000/Amylase 43,750 (Units) Dr Barakat FEEDTUBE PRN PRN For Clogged Feeding Tube Enoxaparin Sodium 40 mg 10/22/20 10:00 04/04/21 10:09 Enoxaparin 40 Mg/0.4 Ml Inj SUB-Q 40 mg DAILY ERINN Administration Protocol Famotidine 20 mg 10/07/20 10:00 04/04/21 22:43 Famotidine 20 Mg Tab PO 20 mg BID ERINN Administration Hydrophilic Ointment 1 applic 01/03/21 13:00 02/16/21 09:56 Lip Therapy Vaseline TP 1 applic DIRECT PRN Administration Dry Lips Metoprolol Tartrate 50 mg 02/02/21 16:01 04/04/21 22:42 Metoprolol Tartrate 25 Mg Tab PO 50 mg BID ERINN Administration Morphine Sulfate 2 mg 01/20/21 13:33 Morphine 2 Mg/1 Ml Inj IV Q4H PRN Pain, Moderate (4-6) Ondansetron HCl 4 mg 02/10/21 11:38 02/10/21 13:18 Ondansetron 4 Mg/2 Ml Inj IV 4 mg Q4H PRN Administration Nausea And Vomiting Simple Syrup 15 ml 10/05/20 11:09 Simple Syrup 15 Ml FEEDTUBE PRN PRN Hypoglycemia Simple Syrup 30 ml 10/05/20 11:09 06/08/21 06:11 Simple Syrup 15 Ml FEEDTUBE 30 ml PRN PRN Administration Hypoglycemia Sodium Bicarbonate 325 mg 10/05/20 11:09 12/16/20 08:19 Sodium Bicarbonate 325 Mg Tab FEEDTUBE 325 mg PRN PRN Administration For Clogged Feeding Tube Nutrition/Malnutrition Assess - Dietary Evaluation Nutrition/Malnutrition Findings: Nutrition Notes Start: 10/04/20 11:13 Freq: Status: Active Protocol: Document 03/31/21 14:05 (Rec: 03/31/21 14:10 [id number]) Nutrition Notes Initial or Follow up Reassessment Other Pertinent Diagnosis s/p cardiac arrest x 2, anoxic brain injury Current Diet TF - Promote at 65ml/hr Labs/Tests Reviewed Pertinent Medications Reviewed Height 5 ft 8 in Weight 91 kg [place] Body Weight (kg) 63.63 BMI 30.4 Weight change and time frame wt fluctuations Weight Status Overweight Subjective/Other Information Pt tolerating TF at goal rate, per RN. Pt continues to wait placement. Percent of energy/protein needs met: 100%/100% Burn Absent Trauma Absent GI Symptoms None Difficulty In Swallowing,Chewing Current % PO Negligible Minimum of two criteria No #1 Nutrition Diagnosis Inadequate oral intake Diagnosis Progress(for reassessment Continues documentation) Is patient on ventilator? No Is Patient Ambulatory and/or Out of Bed No REE-([facility]-confined to bed) 2003.180 Kcal/Kg value to use for calculation 17 Approximate Energy Requirements Using 1547 kcal/Kg Calculation Used for Recommendations [facility] Additional Notes Pro needs 0.8-1g/k-89g/ day Fluid needs 1ml/kcal Nutrition Intervention Nutrition Support: Continue Promote at 65 mL/hr Flush 100 ml q4h Kcal 1,560 Protein (gm) 98 Fluid (mL) 1,309 Goal #1 TF tolerance Goal #2 TF to meet at least 75% estimated energy and protein needs. Follow-Up By: 04/07/21 Additional Comments FU for stable TF
[2021-04-05] MEDS: FAMOTIDINE 20 MG TAB PO SCH ×2 (11:09→22:39)
[2021-04-05] MEDS: ENOXAPARIN 40 MG/0.4 ML INJ SUB-Q SCH (11:09)
[2021-04-05] MEDS: METOPROLOL TARTRATE 25 MG TAB PO SCH ×2 (11:14→22:36)
[2021-04-05] MEDS: ACETAMINOPHEN 325 MG/10.15 ML ORAL LIQD UNIT DOSE FEEDTUBE PRN (11:19)
[2021-04-05] MEDS: ALPRAZolam 0.25 MG TAB PO PRN ×2 (11:20→20:38)
--- NOTE | 2021-04-06 08:16 | Progress Note ---
Assessment and Plan Assessment and plan: --s/p Cardiac arrest x2 on admission and on 10/07/ Status post CPR per ACLS protocol, Echo showed preserved LVEF --Anoxic brain injury, Developed following cardiac arrest, patient does not follow commands Restless and agitated at times ,continue supportive care f/u CT head without contrast 03/24/2021 [as requested by the family]; no acute abnormality Pronounced diffuse cerebral atrophy --Shock-resolved , off pressors, blood pressures within normal range, closely monitor --DIC (disseminated intravascular coagulation) vs HELLP syndrome , Resolved --Possible Eclampsia/HELLP Syndrome, resolved --ADOLPH-resolved, Stable --Sepsis 2/2 UTI s/p cefepime to cover possible pseudomonas as sputum is also growing GN rods till 01/04/21 Previous urine culture grew pansensitive ecoli Blood cultures from 12/27-no growth --Hypernatremia, resolved, cont free water with TF --DVT prophylaxis; Continue Lovenox DC planning per case management, awaiting placement Multiple social issue, very difficult to place Continue current management Brief history and hospital course; 30 year old -Cypriot female CHE 10/25/20 at 36w5d who presents with seizures in triage on 10/02/20. Pt was not able to provide history but per pt's , she presented to the hospital to return a 24 hour urine specimen for analysis. She then suddenly reported that she did not feel good. She was taken to labor and delivery and shortly after arrival, she began seizing. During this time, a code met was called because the patient became hypoxic. She was then noted to be without a pulse. Chest compressions were started immediately, and the patient was emergently taken to the operating room for delivery of the fetus. Off note, This patient has had care at [facility] with comanagement by [facility] since 11 wks complicated by ADHD, morbid obesity, generalized anxiety disorder, panic attacks, chronic narcotic use, fibromyalgia, GERD, Irritable Bowel Syndrome, Migraines, h/o endometrial ablation and ovarian vein embolization, genital herpes, insomnia, LGA fetus, nausea and vomiting, polyhydramnios, quad screen positive for Down's Syndrome, and previous x 3. She was GBS negative. 10/02/2020-03/15/2021 daily hospital course reviewed 03/16/2021; Awaiting placement. Patient is on PEG tube feeding. Saturating well on room air. Patient is mildly tachycardic. Pending placement. 03/17/2021; Awaiting placement. Patient is on PEG tube feeding. Saturating well on room air. Patient is mildly tachycardic. Pending placement. 03/18/2021; awaiting placement. 03/19/2021; awaiting placement. 03/20/2021; awaiting placement. 03/21/21; awaiting placement. 03/22/2021; Awaiting placement. Patient is on PEG tube feeding. Saturating well on room air. Patient is mildly tachycardic. Pending placement. 03/23/2021; multiple social issues, awaiting LTAC placement 03/24/2021; pending placement. Clinically no change, I discussed with patient's mother extensively, she had numerous questions answered all of them She requested a repeat CT head as she noticed significant change in her daughters level of consciousness. Will check CT head without contrast 03/25/2021; I discussed with patient's mother extensively yesterday 03/24/2021, she requested a repeat CT scan as she feels that patient is responding f/u CT head without contrast 03/24/2021; no acute abnormalities, pronounced diffuse cerebral atrophy. 03/26/2021; awaiting placement, multiple social issues, I called and discussed CT head findings with patient's mother Ms. Santiago She verbalized understanding. Disposition; pending placement 03/30/2021 I resumed service today; Clinically no change, awaiting placement, multiple social issues 03/31/2021; multiple social issues, awaiting placement 04/01/2021; clinically no change, social issues, awaiting placement 04/02/2021; patient response to some sound by moving her head, not purposeful Did not respond to communication, awaiting placement 04/03/2021; pending placement social issues, 04/04/2021; clinically no change, awaiting placement 04/05/2021; awaiting placement, clinically stable 04/06/2021; clinically no change, patient is stable Awaiting placement, multiple social issues History Interval history: Patient seen and examined in her room this morning Remains encephalopathic, noncommunicative Spontaneous opening eyes, not in acute distress Vital signs noted Hospitalist Physical - Constitutional Vitals: Temp Pulse Resp BP Pulse Ox 98.5 F 91 H 18 100/68 98 04/06/21 05:46 04/06/21 05:46 04/06/21 05:46 04/06/21 05:46 04/06/21 05:46 General appearance: Present: well-nourished, obese, other (Anoxic encephalopathy, slightly restless at times) - EENT Eyes: Present: PERRL, EOM intact - Neck Neck: Present: supple, normal ROM - Respiratory Respiratory effort: normal Respiratory: bilateral: diminished, negative: rales, rhonchi, wheezing - Cardiovascular Rhythm: regular Heart Sounds: Present: S1 & S2 - Extremities Extremities: no ischemia, No edema - Abdominal General gastrointestinal: soft, non-tender, non-distended - Integumentary Integumentary: Present: clear, warm - Psychiatric Psychiatric: other (Unresponsive noncommunicative) - Neurologic Neurologic: other (Unresponsive noncommunicative, anoxic brain injury) HEART Score - HEART Score Age: < 45 Risk factors: 1-2 risk factors - Critical Actions Critical Actions: >7 pts:50-65% risk of adverse cardiac event. Early invasive measures Results - Labs CBC & Chem 7: 03/16/21 04:42 03/16/21 04:42 Labs: Laboratory Last Values WBC 9.4 K/mm3 (4.5-11.0) 03/16/21 04:42 RBC 5.06 M/mm3 (3.65-5.03) H 03/16/21 04:42 Hgb 12.2 gm/dl (10.1-14.3) 03/16/21 04:42 Hgb Comment See scanned result 10/04/20 Unknown Hct 37.6 % (30.3-42.9) 03/16/21 04:42 MCV 74 fl (79-97) L 03/16/21 04:42 MCH 24 pg (28-32) L 03/16/21 04:42 MCHC 33 % (30-34) 03/16/21 04:42 RDW 15.8 % (13.2-15.2) H 03/16/21 04:42 Plt Count 311 K/mm3 (140-440) 03/16/21 04:42 Lymph % (Auto) 33.5 % (13.4-35.0) 03/16/21 04:42 [place] % (Auto) 8.1 % (0.0-7.3) H 03/16/21 04:42 Eos % (Auto) 1.7 % (0.0-4.3) 03/16/21 04:42 Baso % (Auto) 0.5 % (0.0-1.8) 03/16/21 04:42 Lymph # (Auto) 3.1 K/mm3 (1.2-5.4) 03/16/21 04:42 [place] # (Auto) 0.8 K/mm3 (0.0-0.8) 03/16/21 04:42 Eos # (Auto) 0.2 K/mm3 (0.0-0.4) 03/16/21 04:42 Baso # (Auto) 0.0 K/mm3 (0.0-0.1) 03/16/21 04:42 Add Manual Diff Complete 02/09/21 10:59 Total Counted 100 02/09/21 10:59 Seg Neutrophils % 56.2 % (40.0-70.0) 03/16/21 04:42 Seg Neuts % (Manual) 58.0 % (40.0-70.0) 02/09/21 10:59 Band Neutrophils % 2.0 % 10/15/20 05:50 Lymphocytes % (Manual) 29.0 % (13.4-35.0) 02/09/21 10:59 Reactive Lymphs % (Man) 1.0 % 10/02/20 12:18 Monocytes % (Manual) 13.0 % (0.0-7.3) H 02/09/21 10:59 Eosinophils % (Manual) 1.0 % (0.0-4.3) 10/29/20 07:56 Myelocytes % 2.0 % 10/02/20 13:05 Metamyelocytes % 1.0 % 10/14/20 04:00 Nucleated RBC % Not Reportable 02/09/21 10:59 Seg Neutrophils # 5.3 K/mm3 (1.8-7.7) 03/16/21 04:42 Seg Neutrophils # Man 3.7 K/mm3 (1.8-7.7) 02/09/21 10:59 Band Neutrophils # 0.0 K/mm3 02/09/21 10:59 Lymphocytes # (Manual) 1.8 K/mm3 (1.2-5.4) 02/09/21 10:59 Abs React Lymphs (Man) 0.0 K/mm3 02/09/21 10:59 Monocytes # (Manual) 0.8 K/mm3 (0.0-0.8) 02/09/21 10:59 Eosinophils # (Manual) 0.0 K/mm3 (0.0-0.4) 02/09/21 10:59 Basophils # (Manual) 0.0 K/mm3 (0.0-0.1) 02/09/21 10:59 Metamyelocytes # 0.0 K/mm3 02/09/21 10:59 Myelocytes # 0.0 K/mm3 02/09/21 10:59 Promyelocytes # 0.0 K/mm3 02/09/21 10:59 Blast Cells # 0.0 K/mm3 02/09/21 10:59 WBC Morphology Not Reportable 02/09/21 10:59 Hypersegmented Neuts Not Reportable 02/09/21 10:59 Hyposegmented Neuts Not Reportable 02/09/21 10:59 Hypogranular Neuts Not Reportable 02/09/21 10:59 Smudge Cells Not Reportable 02/09/21 10:59 Toxic Granulation Not Reportable 02/09/21 10:59 Toxic Vacuolation Not Reportable 02/09/21 10:59 Dohle Bodies Not Reportable 02/09/21 10:59 Pelger-Huet Anomaly Not Reportable 02/09/21 10:59 Ester Rods Not Reportable 02/09/21 10:59 Platelet Estimate Consistent w auto 02/09/21 10:59 Clumped Platelets Not Reportable 02/09/21 10:59 Plt Clumps, EDTA Not Reportable 02/09/21 10:59 Large Platelets Few 02/09/21 10:59 Giant Platelets Not Reportable 02/09/21 10:59 Platelet Satelliting Not Reportable 02/09/21 10:59 Plt Morphology Comment Not Reportable 02/09/21 10:59 RBC Morphology Not Reportable 02/09/21 10:59 Dimorphic RBCs Not Reportable 02/09/21 10:59 Polychromasia Not Reportable 02/09/21 10:59 Hypochromasia 1+ 02/09/21 10:59 Poikilocytosis Not Reportable 02/09/21 10:59 Anisocytosis Not Reportable 02/09/21 10:59 Microcytosis Not Reportable 02/09/21 10:59 Macrocytosis Not Reportable 02/09/21 10:59 Spherocytes Not Reportable 02/09/21 10:59 Pappenheimer Bodies Not Reportable 02/09/21 10:59 Sickle Cells Not Reportable 02/09/21 10:59 Target Cells Not Reportable 02/09/21 10:59 Tear Drop Cells Not Reportable 02/09/21 10:59 Ovalocytes Not Reportable 02/09/21 10:59 Stomatocytes Few 10/14/20 04:00 Helmet Cells Not Reportable 02/09/21 10:59 Burk-Lantana Bodies Not Reportable 02/09/21 10:59 Terrell Rings Not Reportable 02/09/21 10:59 Antoine Cells Not Reportable 02/09/21 10:59 Bite Cells Not Reportable 02/09/21 10:59 Crenated Cell Not Reportable 02/09/21 10:59 Elliptocytes Not Reportable 02/09/21 10:59 Acanthocytes (Spur) Not Reportable 02/09/21 10:59 Rouleaux Not Reportable 02/09/21 10:59 Hemoglobin C Crystals Not Reportable 02/09/21 10:59 Schistocytes Not Reportable 02/09/21 10:59 Malaria parasites Not Reportable 02/09/21 10:59 Sickle Cell Solubility See scanned result 10/04/20 Unknown Hemoglobin A See scanned result 10/04/20 Unknown Hemoglobin A2 See scanned result 10/04/20 Unknown Hemoglobin A2 Prime See scanned result 10/04/20 Unknown Hemoglobin C See scanned result 10/04/20 Unknown Hemoglobin D See scanned result 10/04/20 Unknown Hemoglobin E See scanned result 10/04/20 Unknown Hgb F Diffential Stain See scanned result 10/04/20 Unknown Hemoglobin F Quant See scanned result 10/04/20 Unknown Hemoglobin G See scanned result 10/04/20 Unknown Hemoglobin S See scanned result 10/04/20 Unknown Hemoglobin O[place] See scanned result 10/04/20 Unknown Hemoglobin [place] See scanned result 10/04/20 Unknown Hemoglobin Analilia See scanned result 10/04/20 Unknown Variant Hemoglobin See scanned result 10/04/20 Unknown Abnorm Hgb IEF Confirm See scanned result 10/04/20 Unknown Hemoglobin Interpret See scanned result 10/04/20 Unknown Hemoglobinopathy Note See scanned result 10/04/20 Unknown Sharad Bodies Not Reportable 02/09/21 10:59 Hem Pathologist Commnt No 02/09/21 10:59 PT 13.6 Sec. (12.2-14.9) 10/21/20 13:54 INR 1.06 (0.87-1.13) 10/21/20 13:54 APTT 31.6 Sec. (24.2-36.6) 10/03/20 00:40 Fibrinogen 336 mg/dl (211-480) 10/04/20 10:00 D-Dimer 1974.47 ng/mlDDU (0-234) H 11/11/20 13:50 ABG pH 7.459 pH Units (7.350-7.450) H 10/26/20 10:30 POC ABG pCO2 20.7 mmHg (32.0-48.0) L 10/13/20 07:18 ABG pCO2 32.4 mm Hg 10/26/20 10:30 POC ABG pO2 137.9 mmHg (83-108) H 10/13/20 07:18 ABG pO2 112.2 mm Hg (80.0-90.0) H 10/26/20 10:30 POC ABG HCO3 14.8 10/13/20 07:18 ABG HCO3 22.5 mmol/L (20.0-26.0) 10/26/20 10:30 ABG O2 Saturation 98.2 % (95.0-99.0) 10/26/20 10:30 ABG O2 Content 18.5 (0.0-44) 10/26/20 10:30 POC ABG Base Excess -6.9 10/13/20 07:18 ABG Base Excess -0.6 mmol/L (-2.0-3.0) 10/26/20 10:30 ABG Hemoglobin 13.5 gm/dl (12.0-16.0) 10/26/20 10:30 ABG Oxyhemoglobin 98.3 (94-98) H 10/13/20 07:18 ABG Carboxyhemoglobin 1.3 % (0.0-5.0) 10/26/20 10:30 ABG Methemoglobin 0.5 % (0.0-1.5) 10/26/20 10:30 ABG Sodium 135.9 mmol/L (136.0-145.0) L 10/13/20 07:18 ABG Potassium 3.7 mmol/L (3.40-4.50) 10/13/20 07:18 ABG Chloride 111.0 mmol/L (98-107) H 10/13/20 07:18 ABG Glucose 109 mg/dL (65-95) H 10/13/20 07:18 VBG pH 6.949 (7.320-7.420) L* 10/02/20 Unknown Oxyhemoglobin 96.5 % (95.0-99.0) 10/26/20 10:30 Carboxyhemoglobin 0.3 (0.5-1.5) L 10/13/20 07:18 FiO2 25 % 10/26/20 10:30 Sodium 140 mmol/L (137-145) 03/16/21 04:42 Potassium 3.9 mmol/L (3.6-5.0) 03/16/21 04:42 Chloride 103.1 mmol/L (98-107) 03/16/21 04:42 Carbon Dioxide 25 mmol/L (22-30) 03/16/21 04:42 Anion Gap 16 mmol/L 03/16/21 04:42 BUN 12 mg/dL (7-17) 03/16/21 04:42 Creatinine 0.5 mg/dL (0.6-1.2) L 03/16/21 04:42 Estimated GFR > 60 ml/min 03/16/21 04:42 BUN/Creatinine Ratio 24 % 03/16/21 04:42 Glucose 95 mg/dL (65-100) 03/16/21 04:42 POC Glucose 96 mg/dL (70-105) 04/06/21 06:35 Random Insulin 43.2 uIU/mL (<=19.6) H 11/02/20 19:19 Proinsulin See scanned result 11/02/20 19:19 C-Peptide 6.23 ng/mL (0.80-3.85) H 11/02/20 19:19 Lactic Acid 1.90 mmol/L (0.7-2.0) 10/04/20 22:00 Uric Acid 7.5 mg/dL (3.5-7.6) 10/02/20 13:05 Calcium 9.6 mg/dL (8.4-10.2) 03/16/21 04:42 Ionized Calcium 4.4 mg/dL (4.8-5.6) L 10/07/20 21:00 Phosphorus 4.60 mg/dL (2.5-4.5) H 11/13/20 10:05 Magnesium 2.10 mg/dL (1.7-2.3) 11/13/20 10:05 Total Bilirubin 0.80 mg/dL (0.1-1.2) 03/04/21 04:46 AST 51 units/L (5-40) H 03/04/21 04:46 ALT 53 units/L (7-56) 03/04/21 04:46 Alkaline Phosphatase 117 units/L (35-129) 03/04/21 04:46 Lactate Dehydrogenase 769 units/L (91-180) H 10/02/20 13:05 C-Reactive Protein 0.70 mg/dL (0.00-1.30) 11/11/20 13:50 NT-Pro-B Natriuret Pep 2788 pg/mL (0-450) H 10/04/20 10:00 Total Protein 8.4 g/dL (6.3-8.2) H 03/04/21 04:46 Albumin 4.2 g/dL (3.9-5) 03/04/21 04:46 Albumin/Globulin Ratio 1.0 % 03/04/21 04:46 Procalcitonin < 0.05 ng/mL (<0.15) 03/02/21 02:30 Arterial Blood Glucose 109 mg/dL (65-95) H 10/13/20 07:18 Arterial Blood Ionized Calcium 4.6 mg/dL (4.6-5.3) 10/13/20 07:18 Urine Color Yellow (Yellow) 01/25/21 09:51 Urine Turbidity Cloudy (Clear) 01/25/21 09:51 Urine pH 7.0 (5.0-7.0) 01/25/21 09:51 Ur Specific [place] 1.011 (1.003-1.030) 01/25/21 09:51 Urine Protein <15 mg/dl mg/dL (Negative) 01/25/21 09:51 Urine Glucose (UA) Neg mg/dL (Negative) 01/25/21 09:51 Urine Ketones Neg mg/dL (Negative) 01/25/21 09:51 Urine Blood Neg (Negative) 01/25/21 09:51 Urine Nitrite Neg (Negative) 01/25/21 09:51 Urine Bilirubin Neg (Negative) 01/25/21 09:51 Urine Urobilinogen < 2.0 mg/dL (<2.0) 01/25/21 09:51 Ur Leukocyte Esterase Neg (Negative) 01/25/21 09:51 Urine WBC (Auto) 6.0 /HPF (0.0-6.0) 01/25/21 09:51 Urine RBC (Auto) 3.0 /HPF (0.0-6.0) 01/25/21 09:51 U Epithel Cells (Auto) < 1.0 /HPF (0-13.0) 01/25/21 09:51 Urine Bacteria (Auto) 1+ /HPF (Negative) 01/18/21 08:47 Urine WBC Clumps 3+ /HPF 11/11/20 13:50 Calcium Oxalate Crystal Few 11/11/20 13:50 Urine Mucus Few /HPF 01/25/21 09:51 Urine Yeast (Budding) 2+ /HPF 01/25/21 09:51 Vancomycin Trough 12.6 ug/mL (5.0-20.0) 10/21/20 13:54 Random Vancomycin 10.7 ug/mL (0-40.0) 10/16/20 13:09 Phenytoin 5.7 ug/mL (10.0-20.0) L 10/13/20 07:00 C. difficile Tox (PCR) Positive (Negative) 10/16/20 10:22 Coronavirus (PCR) Negative (Negative) 10/08/20 14:15 Blood Type O POSITIVE 10/02/20 12:50 Antibody Screen Negative 10/02/20 12:50 Crossmatch See Detail 10/02/20 12:50 - Diagnostic Impressions Diagnostic Impressions: Echocardiogram 10/03/20 13:42 Transthoracic Echocardiogram Indication: S/P Cardiac Arrest R/O Cardiomyopathy BP: 133/71 Conclusions *Global left ventricular systolic function is normal. *The estimated ejection fraction is 60-65%. *There is trace of mitral regurgitation. *The right 0heart chambers are both slightly dilated. *There is mild tricuspid regurgitation. *There is mild-moderate pulmonary hypertension. *The right ventricular systolic pressure is calculated at 44 mmHg. *The study quality is technically difficult. Findings Procedure Info: The study quality is technically difficult. The study is technically limited due to patient body habitus. The study was technically limited due to the patient's inability to lay in the left lateral decubitus position. Left Ventricle: The left ventricular chamber size is normal. There is no left ventricular hypertrophy. Global left ventricular systolic function is normal. The estimated ejection fraction is 60-65%. Left Atrium: The left atrial chamber size is normal. Right Ventricle: The right ventricle is slightly dilated. Right Atrium: The right atrium is mildly dilated. Aortic Valve: The aortic valve leaflets are mildly thickened. There is no evidence of aortic regurgitation. There is no evidence of aortic stenosis. Mitral Valve: The mitral valve leaflets are mildly thickened. There is trace of mitral regurgitation. There is no evidence of mitral stenosis. Tricuspid Valve: There is mild tricuspid regurgitation. The right ventricular systolic pressure is calculated at 44 mmHg. There is evidence of mild pulmonary hypertension. Pulmonic Valve: There is trace pulmonic regurgitation. Pericardium: There is no pericardial effusion. Aorta: There is no dilatation of the ascending aorta. There is no dilatation of the aortic root. Venous: The inferior vena cava is dilated. Measurements Chambers 2D Name Value Normal Range IVSd (2D) 1 cm (0.6 - 1.1) LVPWd (2D) 1.01 cm (0.6 - 1.1) LVIDd (2D) 4.58 cm (3.7 - 5.6) LVIDs (2D) 3.17 cm (2 - 3.8) LV FS (2D) 30.93 % - EF Teichholz (2D) 58.66 % - Ao root diameter (2D) 2.94 cm (2 - 3.7) Volumes/Mass Name Value Normal Range LA ESV SP 4CH (A/L) 72.82 ml - LA ESV SP 2CH (A/L) 66.86 ml - LA ESV BP (A/L) 74.49 ml - LA ESV SP 4CH (MOD) 71.03 ml - LA ESV SP 2CH (MOD) 64.3 ml - LV EDV SP 4CH (MOD) 98.82 ml - LV ESV SP 4CH (MOD) 24.8 ml - EF SP 4CH (MOD) 74.9 % - LV EDV SP 2CH (MOD) 86.1 ml - LV ESV SP 2CH (MOD) 36.93 ml - EF SP 2CH (MOD) 57.11 % - LV EDV BP 94.4 ml - LV ESV BP 32.66 ml - BP EF (MOD) 65.4 % - Diastolic/Systolic Function Name Value Normal Range MV E-wave Vmax 1.04 m/sec - MV deceleration time 160.46 msec - MV A-wave Vmax 0.92 m/sec - MV E:A ratio 1.14 ratio - Aortic Valve Name Value Normal Range AV Vmax 2.12 m/sec - AV VTI 22.37 cm - AV peak gradient 17.95 mmHg - AV mean gradient 7.29 mmHg - LVOT diameter 2.01 cm - LVOT Vmax 1.8 m/sec - LVOT VTI 27.17 cm - LVOT peak gradient 12.91 mmHg - LVOT mean gradient 6.83 mmHg - SV LVOT 86.42 ml - ANITA (continuity Vmax) 2.7 cm2 - ANITA (continuity VTI) 3.86 cm2 - Ascending Ao 3.18 cm - Tricuspid Valve Name Value Normal Range TV E-wave Vmax 0.88 m/sec - TR Vmax 3.01 m/sec - TR peak gradient 36.27 mmHg - RAP 8 mmHg - RVSP 44 mmHg - IVC diameter 2.65 cm (1.2 - 2.3) Pulmonic Valve/Qp:Qs Name Value Normal Range PV Vmax 1.22 m/sec - PV peak gradient 5.91 mmHg - RVOT Vmax 0.87 m/sec - RVOT VTI 13.32 cm - RVOT peak gradient 3 mmHg - PV acceleration time 110.37 msec - [place]/IV: Voiding Method Incontinent IV Catheter Type [Right Foot] INT / Saline Lock IV Catheter Type [Left Forearm Peripheral IV ] IV Catheter Type [Left Wrist] INT / Saline Lock IV Catheter Type [Right Hand] INT / Saline Lock IV Catheter Type [Right INT / Saline Lock Antecubital] IV Catheter Type [Right Upper Mid-line arm] IV Catheter Type [Left Triple Lumen Cath Internal Jugular] IV Catheter Type [Left Hand] Peripheral IV IV Catheter Type [Left Peripheral IV Antecubital] Active Medications - Current Medications Current Medications: Generic Name Dose Route Start Last Admin Trade Name Freq PRN Reason Stop Dose Admin Acetaminophen 650 mg 10/05/20 16:34 04/05/21 11:19 Acetaminophen 325 Mg/10.15 Ml Oral Liqd Unit Dose FEEDTUBE 650 mg Q6H PRN Administration Non Cardiac Pain or Temp>100.5 Albuterol 2.5 mg 11/05/20 13:03 11/06/20 13:04 Albuterol 2.5 Mg/3 Ml Nebu IH 2.5 mg Q4HRT PRN Administration Shortness Of Breath Alprazolam 0.25 mg 01/20/21 13:33 04/05/21 20:38 Alprazolam 0.25 Mg Tab PO 0.25 mg Q8H PRN Administration Anxiety Lipase/Protease/Amylase 1 each 10/05/20 11:09 Lipase 10,500/Protease 25,000/Amylase 43,750 (Units) Dr Barakat FEEDTUBE PRN PRN For Clogged Feeding Tube Enoxaparin Sodium 40 mg 10/22/20 10:00 04/05/21 11:09 Enoxaparin 40 Mg/0.4 Ml Inj SUB-Q 40 mg DAILY ERINN Administration Protocol Famotidine 20 mg 10/07/20 10:00 04/05/21 22:39 Famotidine 20 Mg Tab PO 20 mg BID ERINN Administration Hydrophilic Ointment 1 applic 01/03/21 13:00 02/16/21 09:56 Lip Therapy Vaseline TP 1 applic DIRECT PRN Administration Dry Lips Metoprolol Tartrate 50 mg 02/02/21 16:01 04/05/21 22:36 Metoprolol Tartrate 25 Mg Tab PO 50 mg BID ERINN Administration Morphine Sulfate 2 mg 01/20/21 13:33 Morphine 2 Mg/1 Ml Inj IV Q4H PRN Pain, Moderate (4-6) Ondansetron HCl 4 mg 02/10/21 11:38 02/10/21 13:18 Ondansetron 4 Mg/2 Ml Inj IV 4 mg Q4H PRN Administration Nausea And Vomiting Simple Syrup 15 ml 10/05/20 11:09 Simple Syrup 15 Ml FEEDTUBE PRN PRN Hypoglycemia Simple Syrup 30 ml 10/05/20 11:09 03/23/21 06:11 Simple Syrup 15 Ml FEEDTUBE 30 ml PRN PRN Administration Hypoglycemia Sodium Bicarbonate 325 mg 10/05/20 11:09 12/16/20 08:19 Sodium Bicarbonate 325 Mg Tab FEEDTUBE 325 mg PRN PRN Administration For Clogged Feeding Tube Nutrition/Malnutrition Assess - Dietary Evaluation Nutrition/Malnutrition Findings: Nutrition Notes Start: 10/04/20 11:13 Freq: Status: Active Protocol: Document 03/31/21 14:05 (Rec: 03/31/21 14:10 [id number]) Nutrition Notes Initial or Follow up Reassessment Other Pertinent Diagnosis s/p cardiac arrest x 2, anoxic brain injury Current Diet TF - Promote at 65ml/hr Labs/Tests Reviewed Pertinent Medications Reviewed Height 5 ft 8 in Weight 91 kg [place] Body Weight (kg) 63.63 BMI 30.4 Weight change and time frame wt fluctuations Weight Status Overweight Subjective/Other Information Pt tolerating TF at goal rate, per RN. Pt continues to wait placement. Percent of energy/protein needs met: 100%/100% Burn Absent Trauma Absent GI Symptoms None Difficulty In Swallowing,Chewing Current % PO Negligible Minimum of two criteria No #1 Nutrition Diagnosis Inadequate oral intake Diagnosis Progress(for reassessment Continues documentation) Is patient on ventilator? No Is Patient Ambulatory and/or Out of Bed No REE-([facility]-confined to bed) 2003.180 Kcal/Kg value to use for calculation 17 Approximate Energy Requirements Using 1547 kcal/Kg Calculation Used for Recommendations [facility] Additional Notes Pro needs 0.8-1g/k-89g/ day Fluid needs 1ml/kcal Nutrition Intervention Nutrition Support: Continue Promote at 65 mL/hr Flush 100 ml q4h Kcal 1,560 Protein (gm) 98 Fluid (mL) 1,309 Goal #1 TF tolerance Goal #2 TF to meet at least 75% estimated energy and protein needs. Follow-Up By: 04/07/21 Additional Comments FU for stable TF
[2021-04-06] MEDS: FAMOTIDINE 20 MG TAB PO SCH ×2 (09:01→22:29)
[2021-04-06] MEDS: METOPROLOL TARTRATE 25 MG TAB PO SCH ×2 (09:01→22:29)
[2021-04-06] MEDS: ENOXAPARIN 40 MG/0.4 ML INJ SUB-Q SCH (09:01)
[2021-04-06] MEDS: ALPRAZolam 0.25 MG TAB PO PRN ×2 (09:02→22:29)
[2021-04-07] MEDS: ALPRAZolam 0.25 MG TAB PO PRN ×2 (09:14→22:04)
[2021-04-07] MEDS: METOPROLOL TARTRATE 25 MG TAB PO SCH ×2 (09:14→21:59)
[2021-04-07] MEDS: FAMOTIDINE 20 MG TAB PO SCH ×2 (09:14→21:59)
[2021-04-07] MEDS: ENOXAPARIN 40 MG/0.4 ML INJ SUB-Q SCH (09:14)
--- NOTE | 2021-04-07 11:58 | Progress Note ---
Assessment and Plan Assessment and plan: Clinically no change --s/p Cardiac arrest x2 on admission and on 10/07/ Status post CPR per ACLS protocol, Echo showed preserved LVEF --Anoxic brain injury, Developed following cardiac arrest, patient does not follow commands Restless and agitated at times ,continue supportive care f/u CT head without contrast 03/24/2021 [as requested by the family]; no acute abnormality Pronounced diffuse cerebral atrophy --Shock-resolved , off pressors, blood pressures within normal range, closely monitor --DIC (disseminated intravascular coagulation) vs HELLP syndrome , Resolved --Possible Eclampsia/HELLP Syndrome, resolved --ADOLPH-resolved, Stable --Sepsis 2/2 UTI s/p cefepime to cover possible pseudomonas as sputum is also growing GN rods till 01/04/21 Previous urine culture grew pansensitive ecoli Blood cultures from 12/27-no growth --Hypernatremia, resolved, cont free water with TF --DVT prophylaxis; Continue Lovenox DC planning per case management, awaiting placement Multiple social issue, very difficult to place Continue current management Brief history and hospital course; 30 year old -[place] female CHE 10/25/20 at 36w5d who presents with seizures in triage on 10/02/20. Pt was not able to provide history but per pt's , she presented to the hospital to return a 24 hour urine specimen for analysis. She then suddenly reported that she did not feel good. She was taken to labor and delivery and shortly after arrival, she began seizing. During this time, a code met was called because the patient became hypoxic. She was then noted to be without a pulse. Chest compressions were started immediately, and the patient was emergently taken to the operating room for delivery of the fetus. Off note, This patient has had care at [facility] with comanagement by [facility] since 11 wks complicated by ADHD, morbid obesity, generalized anxiety disorder, panic attacks, chronic narcotic use, fibromyalgia, GERD, Irritable Bowel Syndrome, Migraines, h/o endometrial ablation and ovarian vein embolization, genital herpes, insomnia, LGA fetus, nausea and vomiting, polyhydramnios, quad screen positive for Down's Syndrome, and previous x 3. She was GBS negative. 10/02/2020-03/15/2021 daily hospital course reviewed 03/16/2021; Awaiting placement. Patient is on PEG tube feeding. Saturating well on room air. Patient is mildly tachycardic. Pending placement. 03/17/2021; Awaiting placement. Patient is on PEG tube feeding. Saturating well on room air. Patient is mildly tachycardic. Pending placement. 03/18/2021; awaiting placement. 03/19/2021; awaiting placement. 03/20/2021; awaiting placement. 03/21/21; awaiting placement. 03/22/2021; Awaiting placement. Patient is on PEG tube feeding. Saturating well on room air. Patient is mildly tachycardic. Pending placement. 03/23/2021; multiple social issues, awaiting LTAC placement 03/24/2021; pending placement. Clinically no change, I discussed with patient's mother extensively, she had numerous questions answered all of them She requested a repeat CT head as she noticed significant change in her daughters level of consciousness. Will check CT head without contrast 03/25/2021; I discussed with patient's mother extensively yesterday 03/24/2021, she requested a repeat CT scan as she feels that patient is responding f/u CT head without contrast 03/24/2021; no acute abnormalities, pronounced diffuse cerebral atrophy. 03/26/2021; awaiting placement, multiple social issues, I called and discussed CT head findings with patient's mother Ms. Santiago She verbalized understanding. Disposition; pending placement 03/30/2021 I resumed service today; Clinically no change, awaiting placement, multiple social issues 03/31/2021; multiple social issues, awaiting placement 04/01/2021; clinically no change, social issues, awaiting placement 04/02/2021; patient response to some sound by moving her head, not purposeful Did not respond to communication, awaiting placement 04/03/2021; pending placement social issues, 04/04/2021; clinically no change, awaiting placement 04/05/2021; awaiting placement, clinically stable 04/06/2021; clinically no change, patient is stable Awaiting placement, multiple social issues 04/07/2021; awaiting placement social issues. History Interval history: I have seen and examined the patient at the bedside No new overnight events reported by nursing staff Patient noncommunicative vital signs reviewed Hospitalist Physical - Constitutional Vitals: Temp Pulse Resp BP Pulse Ox 98.5 F 91 H 18 100/68 98 04/06/21 05:46 04/06/21 05:46 04/06/21 05:46 04/06/21 05:46 04/06/21 05:46 General appearance: Present: well-nourished, obese, other (Anoxic encephalopathy, slightly restless at times) - EENT Eyes: Present: PERRL, EOM intact - Neck Neck: Present: supple, normal ROM - Respiratory Respiratory effort: normal Respiratory: bilateral: diminished, negative: rales, rhonchi, wheezing - Cardiovascular Rhythm: regular Heart Sounds: Present: S1 & S2 - Extremities Extremities: no ischemia, No edema - Abdominal General gastrointestinal: soft, non-tender, non-distended, other (PEG in place) - Integumentary Integumentary: Present: clear, warm - Psychiatric Psychiatric: other - Neurologic Neurologic: other HEART Score - HEART Score Age: < 45 Risk factors: 1-2 risk factors - Critical Actions Critical Actions: >7 pts:50-65% risk of adverse cardiac event. Early invasive measures Results - Labs CBC & Chem 7: 03/16/21 04:42 03/16/21 04:42 Labs: Laboratory Last Values WBC 9.4 K/mm3 (4.5-11.0) 03/16/21 04:42 RBC 5.06 M/mm3 (3.65-5.03) H 03/16/21 04:42 Hgb 12.2 gm/dl (10.1-14.3) 03/16/21 04:42 Hgb Comment See scanned result 10/04/20 Unknown Hct 37.6 % (30.3-42.9) 03/16/21 04:42 MCV 74 fl (79-97) L 03/16/21 04:42 MCH 24 pg (28-32) L 03/16/21 04:42 MCHC 33 % (30-34) 03/16/21 04:42 RDW 15.8 % (13.2-15.2) H 03/16/21 04:42 Plt Count 311 K/mm3 (140-440) 03/16/21 04:42 Lymph % (Auto) 33.5 % (13.4-35.0) 03/16/21 04:42 [place]ountain % (Auto) 8.1 % (0.0-7.3) H 03/16/21 04:42 Eos % (Auto) 1.7 % (0.0-4.3) 03/16/21 04:42 Baso % (Auto) 0.5 % (0.0-1.8) 03/16/21 04:42 Lymph # (Auto) 3.1 K/mm3 (1.2-5.4) 03/16/21 04:42 Fountain # (Auto) 0.8 K/mm3 (0.0-0.8) 03/16/21 04:42 Eos # (Auto) 0.2 K/mm3 (0.0-0.4) 03/16/21 04:42 Baso # (Auto) 0.0 K/mm3 (0.0-0.1) 03/16/21 04:42 Add Manual Diff Complete 02/09/21 10:59 Total Counted 100 02/09/21 10:59 Seg Neutrophils % 56.2 % (40.0-70.0) 03/16/21 04:42 Seg Neuts % (Manual) 58.0 % (40.0-70.0) 02/09/21 10:59 Band Neutrophils % 2.0 % 10/15/20 05:50 Lymphocytes % (Manual) 29.0 % (13.4-35.0) 02/09/21 10:59 Reactive Lymphs % (Man) 1.0 % 10/02/20 12:18 Monocytes % (Manual) 13.0 % (0.0-7.3) H 02/09/21 10:59 Eosinophils % (Manual) 1.0 % (0.0-4.3) 10/29/20 07:56 Myelocytes % 2.0 % 10/02/20 13:05 Metamyelocytes % 1.0 % 10/14/20 04:00 Nucleated RBC % Not Reportable 02/09/21 10:59 Seg Neutrophils # 5.3 K/mm3 (1.8-7.7) 03/16/21 04:42 Seg Neutrophils # Man 3.7 K/mm3 (1.8-7.7) 02/09/21 10:59 Band Neutrophils # 0.0 K/mm3 02/09/21 10:59 Lymphocytes # (Manual) 1.8 K/mm3 (1.2-5.4) 02/09/21 10:59 Abs React Lymphs (Man) 0.0 K/mm3 02/09/21 10:59 Monocytes # (Manual) 0.8 K/mm3 (0.0-0.8) 02/09/21 10:59 Eosinophils # (Manual) 0.0 K/mm3 (0.0-0.4) 02/09/21 10:59 Basophils # (Manual) 0.0 K/mm3 (0.0-0.1) 02/09/21 10:59 Metamyelocytes # 0.0 K/mm3 02/09/21 10:59 Myelocytes # 0.0 K/mm3 02/09/21 10:59 Promyelocytes # 0.0 K/mm3 02/09/21 10:59 Blast Cells # 0.0 K/mm3 02/09/21 10:59 WBC Morphology Not Reportable 02/09/21 10:59 Hypersegmented Neuts Not Reportable 02/09/21 10:59 Hyposegmented Neuts Not Reportable 02/09/21 10:59 Hypogranular Neuts Not Reportable 02/09/21 10:59 Smudge Cells Not Reportable 02/09/21 10:59 Toxic Granulation Not Reportable 02/09/21 10:59 Toxic Vacuolation Not Reportable 02/09/21 10:59 Dohle Bodies Not Reportable 02/09/21 10:59 Pelger-Huet Anomaly Not Reportable 02/09/21 10:59 Ester Rods Not Reportable 02/09/21 10:59 Platelet Estimate Consistent w auto 02/09/21 10:59 Clumped Platelets Not Reportable 02/09/21 10:59 Plt Clumps, EDTA Not Reportable 02/09/21 10:59 Large Platelets Few 02/09/21 10:59 Giant Platelets Not Reportable 02/09/21 10:59 Platelet Satelliting Not Reportable 02/09/21 10:59 Plt Morphology Comment Not Reportable 02/09/21 10:59 RBC Morphology Not Reportable 02/09/21 10:59 Dimorphic RBCs Not Reportable 02/09/21 10:59 Polychromasia Not Reportable 02/09/21 10:59 Hypochromasia 1+ 02/09/21 10:59 Poikilocytosis Not Reportable 02/09/21 10:59 Anisocytosis Not Reportable 02/09/21 10:59 Microcytosis Not Reportable 02/09/21 10:59 Macrocytosis Not Reportable 02/09/21 10:59 Spherocytes Not Reportable 02/09/21 10:59 Pappenheimer Bodies Not Reportable 02/09/21 10:59 Sickle Cells Not Reportable 02/09/21 10:59 Target Cells Not Reportable 02/09/21 10:59 Tear Drop Cells Not Reportable 02/09/21 10:59 Ovalocytes Not Reportable 02/09/21 10:59 Stomatocytes Few 10/14/20 04:00 Helmet Cells Not Reportable 02/09/21 10:59 Burk[place] Bodies Not Reportable 02/09/21 10:59 [place] Rings Not Reportable 02/09/21 10:59 [place] Cells Not Reportable 02/09/21 10:59 Bite Cells Not Reportable 02/09/21 10:59 Crenated Cell Not Reportable 02/09/21 10:59 Elliptocytes Not Reportable 02/09/21 10:59 Acanthocytes (Spur) Not Reportable 02/09/21 10:59 Rouleaux Not Reportable 02/09/21 10:59 Hemoglobin C Crystals Not Reportable 02/09/21 10:59 Schistocytes Not Reportable 02/09/21 10:59 Malaria parasites Not Reportable 02/09/21 10:59 Sickle Cell Solubility See scanned result 10/04/20 Unknown Hemoglobin A See scanned result 10/04/20 Unknown Hemoglobin A2 See scanned result 10/04/20 Unknown Hemoglobin A2 Prime See scanned result 10/04/20 Unknown Hemoglobin C See scanned result 10/04/20 Unknown Hemoglobin D See scanned result 10/04/20 Unknown Hemoglobin E See scanned result 10/04/20 Unknown Hgb F Diffential Stain See scanned result 10/04/20 Unknown Hemoglobin F Quant See scanned result 10/04/20 Unknown Hemoglobin G See scanned result 10/04/20 Unknown Hemoglobin S See scanned result 10/04/20 Unknown Hemoglobin [place] See scanned result 10/04/20 Unknown Hemoglobin [place] See scanned result 10/04/20 Unknown Hemoglobin Analilia See scanned result 10/04/20 Unknown Variant Hemoglobin See scanned result 10/04/20 Unknown Abnorm Hgb IEF Confirm See scanned result 10/04/20 Unknown Hemoglobin Interpret See scanned result 10/04/20 Unknown Hemoglobinopathy Note See scanned result 10/04/20 Unknown Sharad Bodies Not Reportable 02/09/21 10:59 Hem Pathologist Commnt No 02/09/21 10:59 PT 13.6 Sec. (12.2-14.9) 10/21/20 13:54 INR 1.06 (0.87-1.13) 10/21/20 13:54 APTT 31.6 Sec. (24.2-36.6) 10/03/20 00:40 Fibrinogen 336 mg/dl (211-480) 10/04/20 10:00 D-Dimer 1974.47 ng/mlDDU (0-234) H 11/11/20 13:50 ABG pH 7.459 pH Units (7.350-7.450) H 10/26/20 10:30 POC ABG pCO2 20.7 mmHg (32.0-48.0) L 10/13/20 07:18 ABG pCO2 32.4 mm Hg 10/26/20 10:30 POC ABG pO2 137.9 mmHg (83-108) H 10/13/20 07:18 ABG pO2 112.2 mm Hg (80.0-90.0) H 10/26/20 10:30 POC ABG HCO3 14.8 10/13/20 07:18 ABG HCO3 22.5 mmol/L (20.0-26.0) 10/26/20 10:30 ABG O2 Saturation 98.2 % (95.0-99.0) 10/26/20 10:30 ABG O2 Content 18.5 (0.0-44) 10/26/20 10:30 POC ABG Base Excess -6.9 10/13/20 07:18 ABG Base Excess -0.6 mmol/L (-2.0-3.0) 10/26/20 10:30 ABG Hemoglobin 13.5 gm/dl (12.0-16.0) 10/26/20 10:30 ABG Oxyhemoglobin 98.3 (94-98) H 10/13/20 07:18 ABG Carboxyhemoglobin 1.3 % (0.0-5.0) 10/26/20 10:30 ABG Methemoglobin 0.5 % (0.0-1.5) 10/26/20 10:30 ABG Sodium 135.9 mmol/L (136.0-145.0) L 10/13/20 07:18 ABG Potassium 3.7 mmol/L (3.40-4.50) 10/13/20 07:18 ABG Chloride 111.0 mmol/L (98-107) H 10/13/20 07:18 ABG Glucose 109 mg/dL (65-95) H 10/13/20 07:18 VBG pH 6.949 (7.320-7.420) L* 10/02/20 Unknown Oxyhemoglobin 96.5 % (95.0-99.0) 10/26/20 10:30 Carboxyhemoglobin 0.3 (0.5-1.5) L 10/13/20 07:18 FiO2 25 % 10/26/20 10:30 Sodium 140 mmol/L (137-145) 03/16/21 04:42 Potassium 3.9 mmol/L (3.6-5.0) 03/16/21 04:42 Chloride 103.1 mmol/L (98-107) 03/16/21 04:42 Carbon Dioxide 25 mmol/L (22-30) 03/16/21 04:42 Anion Gap 16 mmol/L 03/16/21 04:42 BUN 12 mg/dL (7-17) 03/16/21 04:42 Creatinine 0.5 mg/dL (0.6-1.2) L 03/16/21 04:42 Estimated GFR > 60 ml/min 03/16/21 04:42 BUN/Creatinine Ratio 24 % 03/16/21 04:42 Glucose 95 mg/dL (65-100) 03/16/21 04:42 POC Glucose 111 mg/dL (70-105) H 04/07/21 00:26 Random Insulin 43.2 uIU/mL (<=19.6) H 11/02/20 19:19 Proinsulin See scanned result 11/02/20 19:19 C-Peptide 6.23 ng/mL (0.80-3.85) H 11/02/20 19:19 Lactic Acid 1.90 mmol/L (0.7-2.0) 10/04/20 22:00 Uric Acid 7.5 mg/dL (3.5-7.6) 10/02/20 13:05 Calcium 9.6 mg/dL (8.4-10.2) 03/16/21 04:42 Ionized Calcium 4.4 mg/dL (4.8-5.6) L 10/07/20 21:00 Phosphorus 4.60 mg/dL (2.5-4.5) H 11/13/20 10:05 Magnesium 2.10 mg/dL (1.7-2.3) 11/13/20 10:05 Total Bilirubin 0.80 mg/dL (0.1-1.2) 03/04/21 04:46 AST 51 units/L (5-40) H 03/04/21 04:46 ALT 53 units/L (7-56) 03/04/21 04:46 Alkaline Phosphatase 117 units/L (35-129) 03/04/21 04:46 Lactate Dehydrogenase 769 units/L (91-180) H 10/02/20 13:05 C-Reactive Protein 0.70 mg/dL (0.00-1.30) 11/11/20 13:50 NT-Pro-B Natriuret Pep 2788 pg/mL (0-450) H 10/04/20 10:00 Total Protein 8.4 g/dL (6.3-8.2) H 03/04/21 04:46 Albumin 4.2 g/dL (3.9-5) 03/04/21 04:46 Albumin/Globulin Ratio 1.0 % 03/04/21 04:46 Procalcitonin < 0.05 ng/mL (<0.15) 03/02/21 02:30 Arterial Blood Glucose 109 mg/dL (65-95) H 10/13/20 07:18 Arterial Blood Ionized Calcium 4.6 mg/dL (4.6-5.3) 10/13/20 07:18 Urine Color Yellow (Yellow) 01/25/21 09:51 Urine Turbidity Cloudy (Clear) 01/25/21 09:51 Urine pH 7.0 (5.0-7.0) 01/25/21 09:51 Ur Specific [place] 1.011 (1.003-1.030) 01/25/21 09:51 Urine Protein <15 mg/dl mg/dL (Negative) 01/25/21 09:51 Urine Glucose (UA) Neg mg/dL (Negative) 01/25/21 09:51 Urine Ketones Neg mg/dL (Negative) 01/25/21 09:51 Urine Blood Neg (Negative) 01/25/21 09:51 Urine Nitrite Neg (Negative) 01/25/21 09:51 Urine Bilirubin Neg (Negative) 01/25/21 09:51 Urine Urobilinogen < 2.0 mg/dL (<2.0) 01/25/21 09:51 Ur Leukocyte Esterase Neg (Negative) 01/25/21 09:51 Urine WBC (Auto) 6.0 /HPF (0.0-6.0) 01/25/21 09:51 Urine RBC (Auto) 3.0 /HPF (0.0-6.0) 01/25/21 09:51 U Epithel Cells (Auto) < 1.0 /HPF (0-13.0) 01/25/21 09:51 Urine Bacteria (Auto) 1+ /HPF (Negative) 01/18/21 08:47 Urine WBC Clumps 3+ /HPF 11/11/20 13:50 Calcium Oxalate Crystal Few 11/11/20 13:50 Urine Mucus Few /HPF 01/25/21 09:51 Urine Yeast (Budding) 2+ /HPF 01/25/21 09:51 Vancomycin Trough 12.6 ug/mL (5.0-20.0) 10/21/20 13:54 Random Vancomycin 10.7 ug/mL (0-40.0) 10/16/20 13:09 Phenytoin 5.7 ug/mL (10.0-20.0) L 10/13/20 07:00 C. difficile Tox (PCR) Positive (Negative) 10/16/20 10:22 Coronavirus (PCR) Negative (Negative) 10/08/20 14:15 Blood Type O POSITIVE 10/02/20 12:50 Antibody Screen Negative 10/02/20 12:50 Crossmatch See Detail 10/02/20 12:50 - Diagnostic Impressions Diagnostic Impressions: Echocardiogram 10/03/20 13:42 Transthoracic Echocardiogram Indication: S/P Cardiac Arrest R/O Cardiomyopathy BP: 133/71 Conclusions *Global left ventricular systolic function is normal. *The estimated ejection fraction is 60-65%. *There is trace of mitral regurgitation. *The right 0heart chambers are both slightly dilated. *There is mild tricuspid regurgitation. *There is mild-moderate pulmonary hypertension. *The right ventricular systolic pressure is calculated at 44 mmHg. *The study quality is technically difficult. Findings Procedure Info: The study quality is technically difficult. The study is technically limited due to patient body habitus. The study was technically limited due to the patient's inability to lay in the left lateral decubitus position. Left Ventricle: The left ventricular chamber size is normal. There is no left ventricular hypertrophy. Global left ventricular systolic function is normal. The estimated ejection fraction is 60-65%. Left Atrium: The left atrial chamber size is normal. Right Ventricle: The right ventricle is slightly dilated. Right Atrium: The right atrium is mildly dilated. Aortic Valve: The aortic valve leaflets are mildly thickened. There is no evidence of aortic regurgitation. There is no evidence of aortic stenosis. Mitral Valve: The mitral valve leaflets are mildly thickened. There is trace of mitral regurgitation. There is no evidence of mitral stenosis. Tricuspid Valve: There is mild tricuspid regurgitation. The right ventricular systolic pressure is calculated at 44 mmHg. There is evidence of mild pulmonary hypertension. Pulmonic Valve: There is trace pulmonic regurgitation. Pericardium: There is no pericardial effusion. Aorta: There is no dilatation of the ascending aorta. There is no dilatation of the aortic root. Venous: The inferior vena cava is dilated. Measurements Chambers 2D Name Value Normal Range IVSd (2D) 1 cm (0.6 - 1.1) LVPWd (2D) 1.01 cm (0.6 - 1.1) LVIDd (2D) 4.58 cm (3.7 - 5.6) LVIDs (2D) 3.17 cm (2 - 3.8) LV FS (2D) 30.93 % - EF Teichholz (2D) 58.66 % - Ao root diameter (2D) 2.94 cm (2 - 3.7) Volumes/Mass Name Value Normal Range LA ESV SP 4CH (A/L) 72.82 ml - LA ESV SP 2CH (A/L) 66.86 ml - LA ESV BP (A/L) 74.49 ml - LA ESV SP 4CH (MOD) 71.03 ml - LA ESV SP 2CH (MOD) 64.3 ml - LV EDV SP 4CH (MOD) 98.82 ml - LV ESV SP 4CH (MOD) 24.8 ml - EF SP 4CH (MOD) 74.9 % - LV EDV SP 2CH (MOD) 86.1 ml - LV ESV SP 2CH (MOD) 36.93 ml - EF SP 2CH (MOD) 57.11 % - LV EDV BP 94.4 ml - LV ESV BP 32.66 ml - BP EF (MOD) 65.4 % - Diastolic/Systolic Function Name Value Normal Range MV E-wave Vmax 1.04 m/sec - MV deceleration time 160.46 msec - MV A-wave Vmax 0.92 m/sec - MV E:A ratio 1.14 ratio - Aortic Valve Name Value Normal Range AV Vmax 2.12 m/sec - AV VTI 22.37 cm - AV peak gradient 17.95 mmHg - AV mean gradient 7.29 mmHg - LVOT diameter 2.01 cm - LVOT Vmax 1.8 m/sec - LVOT VTI 27.17 cm - LVOT peak gradient 12.91 mmHg - LVOT mean gradient 6.83 mmHg - SV LVOT 86.42 ml - ANITA (continuity Vmax) 2.7 cm2 - ANITA (continuity VTI) 3.86 cm2 - Ascending Ao 3.18 cm - Tricuspid Valve Name Value Normal Range TV E-wave Vmax 0.88 m/sec - TR Vmax 3.01 m/sec - TR peak gradient 36.27 mmHg - RAP 8 mmHg - RVSP 44 mmHg - IVC diameter 2.65 cm (1.2 - 2.3) Pulmonic Valve/Qp:Qs Name Value Normal Range PV Vmax 1.22 m/sec - PV peak gradient 5.91 mmHg - RVOT Vmax 0.87 m/sec - RVOT VTI 13.32 cm - RVOT peak gradient 3 mmHg - PV acceleration time 110.37 msec - [place]/IV: Voiding Method Incontinent IV Catheter Type [Right Foot] INT / Saline Lock IV Catheter Type [Left Forearm Peripheral IV ] IV Catheter Type [Left Wrist] INT / Saline Lock IV Catheter Type [Right Hand] INT / Saline Lock IV Catheter Type [Right INT / Saline Lock Antecubital] IV Catheter Type [Right Upper Mid-line arm] IV Catheter Type [Left Triple Lumen Cath Internal Jugular] IV Catheter Type [Left Hand] Peripheral IV IV Catheter Type [Left Peripheral IV Antecubital] Active Medications - Current Medications Current Medications: Generic Name Dose Route Start Last Admin Trade Name Freq PRN Reason Stop Dose Admin Acetaminophen 650 mg 10/05/20 16:34 04/05/21 11:19 Acetaminophen 325 Mg/10.15 Ml Oral Liqd Unit Dose FEEDTUBE 650 mg Q6H PRN Administration Non Cardiac Pain or Temp>100.5 Albuterol 2.5 mg 11/05/20 13:03 11/06/20 13:04 Albuterol 2.5 Mg/3 Ml Nebu IH 2.5 mg Q4HRT PRN Administration Shortness Of Breath Alprazolam 0.25 mg 01/20/21 13:33 04/07/21 09:14 Alprazolam 0.25 Mg Tab PO 0.25 mg Q8H PRN Administration Anxiety Lipase/Protease/Amylase 1 each 10/05/20 11:09 Lipase 10,500/Protease 25,000/Amylase 43,750 (Units) Dr Barakat FEEDTUBE PRN PRN For Clogged Feeding Tube Enoxaparin Sodium 40 mg 10/22/20 10:00 04/07/21 09:14 Enoxaparin 40 Mg/0.4 Ml Inj SUB-Q 40 mg DAILY ERINN Administration Protocol Famotidine 20 mg 10/07/20 10:00 04/07/21 09:14 Famotidine 20 Mg Tab PO 20 mg BID ERINN Administration Hydrophilic Ointment 1 applic 01/03/21 13:00 02/16/21 09:56 Lip Therapy Vaseline TP 1 applic DIRECT PRN Administration Dry Lips Metoprolol Tartrate 50 mg 02/02/21 16:01 04/07/21 09:14 Metoprolol Tartrate 25 Mg Tab PO 50 mg BID ERINN Administration Morphine Sulfate 2 mg 01/20/21 13:33 Morphine 2 Mg/1 Ml Inj IV Q4H PRN Pain, Moderate (4-6) Ondansetron HCl 4 mg 02/10/21 11:38 02/10/21 13:18 Ondansetron 4 Mg/2 Ml Inj IV 4 mg Q4H PRN Administration Nausea And Vomiting Simple Syrup 15 ml 12/21/20 11:09 Simple Syrup 15 Ml FEEDTUBE PRN PRN Hypoglycemia Simple Syrup 30 ml 10/05/20 11:09 03/23/21 06:11 Simple Syrup 15 Ml FEEDTUBE 30 ml PRN PRN Administration Hypoglycemia Sodium Bicarbonate 325 mg 10/05/20 11:09 12/16/20 08:19 Sodium Bicarbonate 325 Mg Tab FEEDTUBE 325 mg PRN PRN Administration For Clogged Feeding Tube Nutrition/Malnutrition Assess - Dietary Evaluation Nutrition/Malnutrition Findings: Nutrition Notes Start: 10/04/20 11:13 Freq: Status: Active Protocol: Document 03/31/21 14:05 (Rec: 03/31/21 14:10 MEY [id number]) Nutrition Notes Initial or Follow up Reassessment Other Pertinent Diagnosis s/p cardiac arrest x 2, anoxic brain injury Current Diet TF - Promote at 65ml/hr Labs/Tests Reviewed Pertinent Medications Reviewed Height 5 ft 8 in Weight 91 kg [place] Body Weight (kg) 63.63 BMI 30.4 Weight change and time frame wt fluctuations Weight Status Overweight Subjective/Other Information Pt tolerating TF at goal rate, per RN. Pt continues to wait placement. Percent of energy/protein needs met: 100%/100% Burn Absent Trauma Absent GI Symptoms None Difficulty In Swallowing,Chewing Current % PO Negligible Minimum of two criteria No #1 Nutrition Diagnosis Inadequate oral intake Diagnosis Progress(for reassessment Continues documentation) Is patient on ventilator? No Is Patient Ambulatory and/or Out of Bed No REE-([facility]-confined to bed) 2003.180 Kcal/Kg value to use for calculation 17 Approximate Energy Requirements Using 1547 kcal/Kg Calculation Used for Recommendations [facility] Additional Notes Pro needs 0.8-1g/k-89g/ day Fluid needs 1ml/kcal Nutrition Intervention Nutrition Support: Continue Promote at 65 mL/hr Flush 100 ml q4h Kcal 1,560 Protein (gm) 98 Fluid (mL) 1,309 Goal #1 TF tolerance Goal #2 TF to meet at least 75% estimated energy and protein needs. Follow-Up By: 04/07/21 Additional Comments FU for stable TF
--- NOTE | 2021-04-08 09:07 | Progress Note ---
Assessment and Plan Assessment and plan: --s/p Cardiac arrest x2 on admission and on 10/07/ Status post CPR per ACLS protocol, Echo showed preserved LVEF --Anoxic brain injury, Developed following cardiac arrest, patient does not follow commands Restless and agitated at times ,continue supportive care f/u CT head without contrast 03/24/2021 [as requested by the family]; no acute abnormality Pronounced diffuse cerebral atrophy --Shock-resolved , off pressors, blood pressures within normal range, closely monitor --DIC (disseminated intravascular coagulation) vs HELLP syndrome , Resolved --Possible Eclampsia/HELLP Syndrome, resolved --ADOLPH-resolved, Stable --Sepsis 2/2 UTI s/p cefepime to cover possible pseudomonas as sputum is also growing GN rods till 01/04/21 Previous urine culture grew pansensitive ecoli Blood cultures from 12/27-no growth --Hypernatremia, resolved, cont free water with TF --DVT prophylaxis; Continue Lovenox DC planning per case management, awaiting placement Multiple social issue, very difficult to place Continue current management Brief history and hospital course; 30 year old -[place] female CHE 10/25/20 at 36w5d who presents with seizures in triage on 10/02/20. Pt was not able to provide history but per pt's , she presented to the hospital to return a 24 hour urine specimen for analysis. She then suddenly reported that she did not feel good. She was taken to labor and delivery and shortly after arrival, she began seizing. During this time, a code met was called because the patient became hypoxic. She was then noted to be without a pulse. Chest compressions were started immediately, and the patient was emergently taken to the operating room for delivery of the fetus. Off note, This patient has had care at [facility] with comanagement by [facility] since 11 wks complicated by ADHD, morbid obesity, generalized anxiety disorder, panic attacks, chronic narcotic use, fibromyalgia, GERD, Irritable Bowel Syndrome, Migraines, h/o endometrial ablation and ovarian vein embolization, genital herpes, insomnia, LGA fetus, nausea and vomiting, polyhydramnios, quad screen positive for Down's Syndrome, and previous x 3. She was GBS negative. 10/02/2020-03/15/2021 daily hospital course reviewed 03/16/2021; Awaiting placement. Patient is on PEG tube feeding. Saturating well on room air. Patient is mildly tachycardic. Pending placement. 03/17/2021; Awaiting placement. Patient is on PEG tube feeding. Saturating well on room air. Patient is mildly tachycardic. Pending placement. 03/18/2021; awaiting placement. 03/19/2021; awaiting placement. 03/20/2021; awaiting placement. 03/21/21; awaiting placement. 03/22/2021; Awaiting placement. Patient is on PEG tube feeding. Saturating well on room air. Patient is mildly tachycardic. Pending placement. 03/23/2021; multiple social issues, awaiting LTAC placement 03/24/2021; pending placement. Clinically no change, I discussed with patient's mother extensively, she had numerous questions answered all of them She requested a repeat CT head as she noticed significant change in her daughters level of consciousness. Will check CT head without contrast 03/25/2021; I discussed with patient's mother extensively yesterday 03/24/2021, she requested a repeat CT scan as she feels that patient is responding f/u CT head without contrast 03/24/2021; no acute abnormalities, pronounced diffuse cerebral atrophy. 03/26/2021; awaiting placement, multiple social issues, I called and discussed CT head findings with patient's mother Ms. Santiago She verbalized understanding. Disposition; pending placement 03/30/2021 I resumed service today; Clinically no change, awaiting placement, multiple social issues 03/31/2021; multiple social issues, awaiting placement 04/01/2021; clinically no change, social issues, awaiting placement 04/02/2021; patient response to some sound by moving her head, not purposeful Did not respond to communication, awaiting placement 04/03/2021; pending placement social issues, 04/04/2021; clinically no change, awaiting placement 04/05/2021; awaiting placement, clinically stable 04/06/2021; clinically no change, patient is stable Awaiting placement, multiple social issues 04/07/2021; awaiting placement social issues. History Interval history: Patient noncommunicative unresponsive Spontaneous opening eyes and movements Vital signs noted Awaiting placement Hospitalist Physical - Constitutional Vitals: Temp Pulse Resp BP Pulse Ox 97.8 F 68 16 107/76 99 04/08/21 04:43 04/08/21 04:43 04/08/21 04:43 04/08/21 04:43 04/08/21 04:43 General appearance: Present: well-nourished, obese, other (Anoxic encephalopathy, slightly restless at times) - EENT Eyes: Present: PERRL, EOM intact - Neck Neck: Present: supple, normal ROM - Respiratory Respiratory effort: normal Respiratory: bilateral: diminished, negative: rales, rhonchi, wheezing - Cardiovascular Rhythm: regular Heart Sounds: Present: S1 & S2 - Extremities Extremities: No edema - Abdominal General gastrointestinal: soft, non-tender, non-distended, normal bowel sounds, other (PEG tube in place) - Integumentary Integumentary: Present: clear, warm - Psychiatric Psychiatric: other (Noncommunicative) - Neurologic Neurologic: other (Noncommunicative) HEART Score - HEART Score Age: < 45 Risk factors: 1-2 risk factors - Critical Actions Critical Actions: >7 pts:50-65% risk of adverse cardiac event. Early invasive measures Results - Labs CBC & Chem 7: 03/16/21 04:42 03/16/21 04:42 Labs: Laboratory Last Values WBC 9.4 K/mm3 (4.5-11.0) 03/16/21 04:42 RBC 5.06 M/mm3 (3.65-5.03) H 03/16/21 04:42 Hgb 12.2 gm/dl (10.1-14.3) 03/16/21 04:42 Hgb Comment See scanned result 10/04/20 Unknown Hct 37.6 % (30.3-42.9) 03/16/21 04:42 MCV 74 fl (79-97) L 03/16/21 04:42 MCH 24 pg (28-32) L 03/16/21 04:42 MCHC 33 % (30-34) 03/16/21 04:42 RDW 15.8 % (13.2-15.2) H 03/16/21 04:42 Plt Count 311 K/mm3 (140-440) 03/16/21 04:42 Lymph % (Auto) 33.5 % (13.4-35.0) 03/16/21 04:42 Burke % (Auto) 8.1 % (0.0-7.3) H 03/16/21 04:42 Eos % (Auto) 1.7 % (0.0-4.3) 03/16/21 04:42 Baso % (Auto) 0.5 % (0.0-1.8) 03/16/21 04:42 Lymph # (Auto) 3.1 K/mm3 (1.2-5.4) 03/16/21 04:42 Burke # (Auto) 0.8 K/mm3 (0.0-0.8) 03/16/21 04:42 Eos # (Auto) 0.2 K/mm3 (0.0-0.4) 03/16/21 04:42 Baso # (Auto) 0.0 K/mm3 (0.0-0.1) 03/16/21 04:42 Add Manual Diff Complete 02/09/21 10:59 Total Counted 100 02/09/21 10:59 Seg Neutrophils % 56.2 % (40.0-70.0) 03/16/21 04:42 Seg Neuts % (Manual) 58.0 % (40.0-70.0) 02/09/21 10:59 Band Neutrophils % 2.0 % 10/15/20 05:50 Lymphocytes % (Manual) 29.0 % (13.4-35.0) 02/09/21 10:59 Reactive Lymphs % (Man) 1.0 % 10/02/20 12:18 Monocytes % (Manual) 13.0 % (0.0-7.3) H 02/09/21 10:59 Eosinophils % (Manual) 1.0 % (0.0-4.3) 10/29/20 07:56 Myelocytes % 2.0 % 10/02/20 13:05 Metamyelocytes % 1.0 % 10/14/20 04:00 Nucleated RBC % Not Reportable 02/09/21 10:59 Seg Neutrophils # 5.3 K/mm3 (1.8-7.7) 03/16/21 04:42 Seg Neutrophils # Man 3.7 K/mm3 (1.8-7.7) 02/09/21 10:59 Band Neutrophils # 0.0 K/mm3 02/09/21 10:59 Lymphocytes # (Manual) 1.8 K/mm3 (1.2-5.4) 02/09/21 10:59 Abs React Lymphs (Man) 0.0 K/mm3 02/09/21 10:59 Monocytes # (Manual) 0.8 K/mm3 (0.0-0.8) 02/09/21 10:59 Eosinophils # (Manual) 0.0 K/mm3 (0.0-0.4) 02/09/21 10:59 Basophils # (Manual) 0.0 K/mm3 (0.0-0.1) 02/09/21 10:59 Metamyelocytes # 0.0 K/mm3 02/09/21 10:59 Myelocytes # 0.0 K/mm3 02/09/21 10:59 Promyelocytes # 0.0 K/mm3 02/09/21 10:59 Blast Cells # 0.0 K/mm3 02/09/21 10:59 WBC Morphology Not Reportable 02/09/21 10:59 Hypersegmented Neuts Not Reportable 02/09/21 10:59 Hyposegmented Neuts Not Reportable 02/09/21 10:59 Hypogranular Neuts Not Reportable 02/09/21 10:59 Smudge Cells Not Reportable 02/09/21 10:59 Toxic Granulation Not Reportable 02/09/21 10:59 Toxic Vacuolation Not Reportable 02/09/21 10:59 Dohle Bodies Not Reportable 02/09/21 10:59 Pelger-Huet Anomaly Not Reportable 02/09/21 10:59 Ester Rods Not Reportable 02/09/21 10:59 Platelet Estimate Consistent w auto 02/09/21 10:59 Clumped Platelets Not Reportable 02/09/21 10:59 Plt Clumps, EDTA Not Reportable 02/09/21 10:59 Large Platelets Few 02/09/21 10:59 Giant Platelets Not Reportable 02/09/21 10:59 Platelet Satelliting Not Reportable 02/09/21 10:59 Plt Morphology Comment Not Reportable 02/09/21 10:59 RBC Morphology Not Reportable 02/09/21 10:59 Dimorphic RBCs Not Reportable 02/09/21 10:59 Polychromasia Not Reportable 02/09/21 10:59 Hypochromasia 1+ 02/09/21 10:59 Poikilocytosis Not Reportable 02/09/21 10:59 Anisocytosis Not Reportable 02/09/21 10:59 Microcytosis Not Reportable 02/09/21 10:59 Macrocytosis Not Reportable 02/09/21 10:59 Spherocytes Not Reportable 02/09/21 10:59 Pappenheimer Bodies Not Reportable 02/09/21 10:59 Sickle Cells Not Reportable 02/09/21 10:59 Target Cells Not Reportable 02/09/21 10:59 Tear Drop Cells Not Reportable 02/09/21 10:59 Ovalocytes Not Reportable 02/09/21 10:59 Stomatocytes Few 10/14/20 04:00 Helmet Cells Not Reportable 02/09/21 10:59 [place] Bodies Not Reportable 02/09/21 10:59 [place] Rings Not Reportable 02/09/21 10:59 Antoine Cells Not Reportable 02/09/21 10:59 Bite Cells Not Reportable 02/09/21 10:59 Crenated Cell Not Reportable 02/09/21 10:59 Elliptocytes Not Reportable 02/09/21 10:59 Acanthocytes (Spur) Not Reportable 02/09/21 10:59 Rouleaux Not Reportable 02/09/21 10:59 Hemoglobin C Crystals Not Reportable 02/09/21 10:59 Schistocytes Not Reportable 02/09/21 10:59 Malaria parasites Not Reportable 02/09/21 10:59 Sickle Cell Solubility See scanned result 10/04/20 Unknown Hemoglobin A See scanned result 10/04/20 Unknown Hemoglobin A2 See scanned result 10/04/20 Unknown Hemoglobin A2 Prime See scanned result 10/04/20 Unknown Hemoglobin C See scanned result 10/04/20 Unknown Hemoglobin D See scanned result 10/04/20 Unknown Hemoglobin E See scanned result 10/04/20 Unknown Hgb F Diffential Stain See scanned result 10/04/20 Unknown Hemoglobin F Quant See scanned result 10/04/20 Unknown Hemoglobin G See scanned result 10/04/20 Unknown Hemoglobin S See scanned result 10/04/20 Unknown Hemoglobin [place] See scanned result 10/04/20 Unknown Hemoglobin [place] See scanned result 10/04/20 Unknown Hemoglobin Analilia See scanned result 10/04/20 Unknown Variant Hemoglobin See scanned result 10/04/20 Unknown Abnorm Hgb IEF Confirm See scanned result 10/04/20 Unknown Hemoglobin Interpret See scanned result 10/04/20 Unknown Hemoglobinopathy Note See scanned result 10/04/20 Unknown Sharad Bodies Not Reportable 02/09/21 10:59 Hem Pathologist Commnt No 02/09/21 10:59 PT 13.6 Sec. (12.2-14.9) 10/21/20 13:54 INR 1.06 (0.87-1.13) 10/21/20 13:54 APTT 31.6 Sec. (24.2-36.6) 10/03/20 00:40 Fibrinogen 336 mg/dl (211-480) 10/04/20 10:00 D-Dimer 1974.47 ng/mlDDU (0-234) H 11/11/20 13:50 ABG pH 7.459 pH Units (7.350-7.450) H 10/26/20 10:30 POC ABG pCO2 20.7 mmHg (32.0-48.0) L 10/13/20 07:18 ABG pCO2 32.4 mm Hg 10/26/20 10:30 POC ABG pO2 137.9 mmHg (83-108) H 10/13/20 07:18 ABG pO2 112.2 mm Hg (80.0-90.0) H 10/26/20 10:30 POC ABG HCO3 14.8 10/13/20 07:18 ABG HCO3 22.5 mmol/L (20.0-26.0) 10/26/20 10:30 ABG O2 Saturation 98.2 % (95.0-99.0) 10/26/20 10:30 ABG O2 Content 18.5 (0.0-44) 10/26/20 10:30 POC ABG Base Excess -6.9 10/13/20 07:18 ABG Base Excess -0.6 mmol/L (-2.0-3.0) 10/26/20 10:30 ABG Hemoglobin 13.5 gm/dl (12.0-16.0) 10/26/20 10:30 ABG Oxyhemoglobin 98.3 (94-98) H 10/13/20 07:18 ABG Carboxyhemoglobin 1.3 % (0.0-5.0) 10/26/20 10:30 ABG Methemoglobin 0.5 % (0.0-1.5) 10/26/20 10:30 ABG Sodium 135.9 mmol/L (136.0-145.0) L 10/13/20 07:18 ABG Potassium 3.7 mmol/L (3.40-4.50) 10/13/20 07:18 ABG Chloride 111.0 mmol/L (98-107) H 10/13/20 07:18 ABG Glucose 109 mg/dL (65-95) H 10/13/20 07:18 VBG pH 6.949 (7.320-7.420) L* 10/02/20 Unknown Oxyhemoglobin 96.5 % (95.0-99.0) 10/26/20 10:30 Carboxyhemoglobin 0.3 (0.5-1.5) L 10/13/20 07:18 FiO2 25 % 10/26/20 10:30 Sodium 140 mmol/L (137-145) 03/16/21 04:42 Potassium 3.9 mmol/L (3.6-5.0) 03/16/21 04:42 Chloride 103.1 mmol/L (98-107) 03/16/21 04:42 Carbon Dioxide 25 mmol/L (22-30) 03/16/21 04:42 Anion Gap 16 mmol/L 03/16/21 04:42 BUN 12 mg/dL (7-17) 03/16/21 04:42 Creatinine 0.5 mg/dL (0.6-1.2) L 03/16/21 04:42 Estimated GFR > 60 ml/min 03/16/21 04:42 BUN/Creatinine Ratio 24 % 03/16/21 04:42 Glucose 95 mg/dL (65-100) 03/16/21 04:42 POC Glucose 101 mg/dL (70-105) 04/08/21 05:13 Random Insulin 43.2 uIU/mL (<=19.6) H 11/02/20 19:19 Proinsulin See scanned result 11/02/20 19:19 C-Peptide 6.23 ng/mL (0.80-3.85) H 11/02/20 19:19 Lactic Acid 1.90 mmol/L (0.7-2.0) 10/04/20 22:00 Uric Acid 7.5 mg/dL (3.5-7.6) 10/02/20 13:05 Calcium 9.6 mg/dL (8.4-10.2) 03/16/21 04:42 Ionized Calcium 4.4 mg/dL (4.8-5.6) L 10/07/20 21:00 Phosphorus 4.60 mg/dL (2.5-4.5) H 11/13/20 10:05 Magnesium 2.10 mg/dL (1.7-2.3) 11/13/20 10:05 Total Bilirubin 0.80 mg/dL (0.1-1.2) 03/04/21 04:46 AST 51 units/L (5-40) H 03/04/21 04:46 ALT 53 units/L (7-56) 03/04/21 04:46 Alkaline Phosphatase 117 units/L (35-129) 03/04/21 04:46 Lactate Dehydrogenase 769 units/L (91-180) H 10/02/20 13:05 C-Reactive Protein 0.70 mg/dL (0.00-1.30) 11/11/20 13:50 NT-Pro-B Natriuret Pep 2788 pg/mL (0-450) H 10/04/20 10:00 Total Protein 8.4 g/dL (6.3-8.2) H 03/04/21 04:46 Albumin 4.2 g/dL (3.9-5) 03/04/21 04:46 Albumin/Globulin Ratio 1.0 % 03/04/21 04:46 Procalcitonin < 0.05 ng/mL (<0.15) 03/02/21 02:30 Arterial Blood Glucose 109 mg/dL (65-95) H 10/13/20 07:18 Arterial Blood Ionized Calcium 4.6 mg/dL (4.6-5.3) 10/13/20 07:18 Urine Color Yellow (Yellow) 01/25/21 09:51 Urine Turbidity Cloudy (Clear) 01/25/21 09:51 Urine pH 7.0 (5.0-7.0) 01/25/21 09:51 Ur Specific [place] 1.011 (1.003-1.030) 01/25/21 09:51 Urine Protein <15 mg/dl mg/dL (Negative) 01/25/21 09:51 Urine Glucose (UA) Neg mg/dL (Negative) 01/25/21 09:51 Urine Ketones Neg mg/dL (Negative) 01/25/21 09:51 Urine Blood Neg (Negative) 01/25/21 09:51 Urine Nitrite Neg (Negative) 01/25/21 09:51 Urine Bilirubin Neg (Negative) 01/25/21 09:51 Urine Urobilinogen < 2.0 mg/dL (<2.0) 01/25/21 09:51 Ur Leukocyte Esterase Neg (Negative) 01/25/21 09:51 Urine WBC (Auto) 6.0 /HPF (0.0-6.0) 01/25/21 09:51 Urine RBC (Auto) 3.0 /HPF (0.0-6.0) 01/25/21 09:51 U Epithel Cells (Auto) < 1.0 /HPF (0-13.0) 01/25/21 09:51 Urine Bacteria (Auto) 1+ /HPF (Negative) 01/18/21 08:47 Urine WBC Clumps 3+ /HPF 11/11/20 13:50 Calcium Oxalate Crystal Few 11/11/20 13:50 Urine Mucus Few /HPF 01/25/21 09:51 Urine Yeast (Budding) 2+ /HPF 01/25/21 09:51 Vancomycin Trough 12.6 ug/mL (5.0-20.0) 10/21/20 13:54 Random Vancomycin 10.7 ug/mL (0-40.0) 10/16/20 13:09 Phenytoin 5.7 ug/mL (10.0-20.0) L 10/13/20 07:00 C. difficile Tox (PCR) Positive (Negative) 10/16/20 10:22 Coronavirus (PCR) Negative (Negative) 10/08/20 14:15 Blood Type O POSITIVE 10/02/20 12:50 Antibody Screen Negative 10/02/20 12:50 Crossmatch See Detail 10/02/20 12:50 - Diagnostic Impressions Diagnostic Impressions: Echocardiogram 10/03/20 13:42 Transthoracic Echocardiogram Indication: S/P Cardiac Arrest R/O Cardiomyopathy BP: 133/71 Conclusions *Global left ventricular systolic function is normal. *The estimated ejection fraction is 60-65%. *There is trace of mitral regurgitation. *The right 0heart chambers are both slightly dilated. *There is mild tricuspid regurgitation. *There is mild-moderate pulmonary hypertension. *The right ventricular systolic pressure is calculated at 44 mmHg. *The study quality is technically difficult. Findings Procedure Info: The study quality is technically difficult. The study is technically limited due to patient body habitus. The study was technically limited due to the patient's inability to lay in the left lateral decubitus position. Left Ventricle: The left ventricular chamber size is normal. There is no left ventricular hypertrophy. Global left ventricular systolic function is normal. The estimated ejection fraction is 60-65%. Left Atrium: The left atrial chamber size is normal. Right Ventricle: The right ventricle is slightly dilated. Right Atrium: The right atrium is mildly dilated. Aortic Valve: The aortic valve leaflets are mildly thickened. There is no evidence of aortic regurgitation. There is no evidence of aortic stenosis. Mitral Valve: The mitral valve leaflets are mildly thickened. There is trace of mitral regurgitation. There is no evidence of mitral stenosis. Tricuspid Valve: There is mild tricuspid regurgitation. The right ventricular systolic pressure is calculated at 44 mmHg. There is evidence of mild pulmonary hypertension. Pulmonic Valve: There is trace pulmonic regurgitation. Pericardium: There is no pericardial effusion. Aorta: There is no dilatation of the ascending aorta. There is no dilatation of the aortic root. Venous: The inferior vena cava is dilated. Measurements Chambers 2D Name Value Normal Range IVSd (2D) 1 cm (0.6 - 1.1) LVPWd (2D) 1.01 cm (0.6 - 1.1) LVIDd (2D) 4.58 cm (3.7 - 5.6) LVIDs (2D) 3.17 cm (2 - 3.8) LV FS (2D) 30.93 % - EF Teichholz (2D) 58.66 % - Ao root diameter (2D) 2.94 cm (2 - 3.7) Volumes/Mass Name Value Normal Range LA ESV SP 4CH (A/L) 72.82 ml - LA ESV SP 2CH (A/L) 66.86 ml - LA ESV BP (A/L) 74.49 ml - LA ESV SP 4CH (MOD) 71.03 ml - LA ESV SP 2CH (MOD) 64.3 ml - LV EDV SP 4CH (MOD) 98.82 ml - LV ESV SP 4CH (MOD) 24.8 ml - EF SP 4CH (MOD) 74.9 % - LV EDV SP 2CH (MOD) 86.1 ml - LV ESV SP 2CH (MOD) 36.93 ml - EF SP 2CH (MOD) 57.11 % - LV EDV BP 94.4 ml - LV ESV BP 32.66 ml - BP EF (MOD) 65.4 % - Diastolic/Systolic Function Name Value Normal Range MV E-wave Vmax 1.04 m/sec - MV deceleration time 160.46 msec - MV A-wave Vmax 0.92 m/sec - MV E:A ratio 1.14 ratio - Aortic Valve Name Value Normal Range AV Vmax 2.12 m/sec - AV VTI 22.37 cm - AV peak gradient 17.95 mmHg - AV mean gradient 7.29 mmHg - LVOT diameter 2.01 cm - LVOT Vmax 1.8 m/sec - LVOT VTI 27.17 cm - LVOT peak gradient 12.91 mmHg - LVOT mean gradient 6.83 mmHg - SV LVOT 86.42 ml - ANITA (continuity Vmax) 2.7 cm2 - ANITA (continuity VTI) 3.86 cm2 - Ascending Ao 3.18 cm - Tricuspid Valve Name Value Normal Range TV E-wave Vmax 0.88 m/sec - TR Vmax 3.01 m/sec - TR peak gradient 36.27 mmHg - RAP 8 mmHg - RVSP 44 mmHg - IVC diameter 2.65 cm (1.2 - 2.3) Pulmonic Valve/Qp:Qs Name Value Normal Range PV Vmax 1.22 m/sec - PV peak gradient 5.91 mmHg - RVOT Vmax 0.87 m/sec - RVOT VTI 13.32 cm - RVOT peak gradient 3 mmHg - PV acceleration time 110.37 msec - [place]/IV: Voiding Method Incontinent IV Catheter Type [Right Foot] INT / Saline Lock IV Catheter Type [Left Forearm Peripheral IV ] IV Catheter Type [Left Wrist] INT / Saline Lock IV Catheter Type [Right Hand] INT / Saline Lock IV Catheter Type [Right INT / Saline Lock Antecubital] IV Catheter Type [Right Upper Mid-line arm] IV Catheter Type [Left Triple Lumen Cath Internal Jugular] IV Catheter Type [Left Hand] Peripheral IV IV Catheter Type [Left Peripheral IV Antecubital] Active Medications - Current Medications Current Medications: Generic Name Dose Route Start Last Admin Trade Name Freq PRN Reason Stop Dose Admin Acetaminophen 650 mg 10/05/20 16:34 04/05/21 11:19 Acetaminophen 325 Mg/10.15 Ml Oral Liqd Unit Dose FEEDTUBE 650 mg Q6H PRN Administration Non Cardiac Pain or Temp>100.5 Albuterol 2.5 mg 11/05/20 13:03 11/06/20 13:04 Albuterol 2.5 Mg/3 Ml Nebu IH 2.5 mg Q4HRT PRN Administration Shortness Of Breath Alprazolam 0.25 mg 01/20/21 13:33 04/07/21 22:04 Alprazolam 0.25 Mg Tab PO 0.25 mg Q8H PRN Administration Anxiety Lipase/Protease/Amylase 1 each 10/05/20 11:09 Lipase 10,500/Protease 25,000/Amylase 43,750 (Units) Dr Barakat FEEDTUBE PRN PRN For Clogged Feeding Tube Enoxaparin Sodium 40 mg 10/22/20 10:00 04/07/21 09:14 Enoxaparin 40 Mg/0.4 Ml Inj SUB-Q 40 mg DAILY ERINN Administration Protocol Famotidine 20 mg 10/07/20 10:00 04/07/21 21:59 Famotidine 20 Mg Tab PO 20 mg BID ERINN Administration Hydrophilic Ointment 1 applic 01/03/21 13:00 02/16/21 09:56 Lip Therapy Vaseline TP 1 applic DIRECT PRN Administration Dry Lips Metoprolol Tartrate 50 mg 02/02/21 16:01 04/07/21 21:59 Metoprolol Tartrate 25 Mg Tab PO 50 mg BID ERINN Administration Morphine Sulfate 2 mg 01/20/21 13:33 Morphine 2 Mg/1 Ml Inj IV Q4H PRN Pain, Moderate (4-6) Ondansetron HCl 4 mg 02/10/21 11:38 02/10/21 13:18 Ondansetron 4 Mg/2 Ml Inj IV 4 mg Q4H PRN Administration Nausea And Vomiting Simple Syrup 15 ml 12/21/20 11:09 Simple Syrup 15 Ml FEEDTUBE PRN PRN Hypoglycemia Simple Syrup 30 ml 10/05/20 11:09 03/23/21 06:11 Simple Syrup 15 Ml FEEDTUBE 30 ml PRN PRN Administration Hypoglycemia Sodium Bicarbonate 325 mg 10/05/20 11:09 12/16/20 08:19 Sodium Bicarbonate 325 Mg Tab FEEDTUBE 325 mg PRN PRN Administration For Clogged Feeding Tube Nutrition/Malnutrition Assess - Dietary Evaluation Nutrition/Malnutrition Findings: Nutrition Notes Start: 10/04/20 11:13 Freq: Status: Active Protocol: Document 04/07/21 14:35 (Rec: 04/07/21 14:37 [id number]) Nutrition Notes Initial or Follow up Reassessment Other Pertinent Diagnosis s/p cardiac arrest x 2, anoxic brain injury Current Diet TF - Promote at 65ml/hr Labs/Tests Reviewed Pertinent Medications Reviewed Height 5 ft 8 in Weight 91.2 kg [place] Body Weight (kg) 63.63 BMI 30.5 Weight Status Underweight Subjective/Other Information FU for TF tolerance. TF running at goal and pt tolerating. Percent of energy/protein needs met: 100%/100% Burn Absent Trauma Absent GI Symptoms None Difficulty In Swallowing,Chewing Current % PO Negligible Minimum of two criteria No #1 Nutrition Diagnosis Inadequate oral intake Diagnosis Progress(for reassessment Continues documentation) Is patient on ventilator? No Is Patient Ambulatory and/or Out of Bed No REE-([facility]-confined to bed) 2005.580 Kcal/Kg value to use for calculation 17 Approximate Energy Requirements Using 1550 kcal/Kg Calculation Used for Recommendations [facility] Additional Notes Pro needs 0.8-1g/k-89g/ day Fluid needs 1ml/kcal Nutrition Intervention Nutrition Support: Continue Promote at 65 mL/hr Flush 100 ml q4h Kcal 1,560 Protein (gm) 98 Fluid (mL) 1,309 Goal #1 TF tolerance Goal #2 TF to meet at least 75% estimated energy and protein needs. Follow-Up By: 04/14/21 Additional Comments FU for stable TF
[2021-04-08] MEDS: ENOXAPARIN 40 MG/0.4 ML INJ SUB-Q SCH (09:25)
[2021-04-08] MEDS: METOPROLOL TARTRATE 25 MG TAB PO SCH ×2 (09:25→22:14)
[2021-04-08] MEDS: FAMOTIDINE 20 MG TAB PO SCH ×2 (09:25→22:15)
--- NOTE | 2021-04-09 07:59 | Progress Note ---
Assessment and Plan Assessment and plan: --s/p Cardiac arrest x2 on admission and on 10/07/ Status post CPR per ACLS protocol, Echo showed preserved LVEF --Anoxic brain injury, Developed following cardiac arrest, patient does not follow commands Restless and agitated at times ,continue supportive care f/u CT head without contrast 03/24/2021 [as requested by the family]; no acute abnormality Pronounced diffuse cerebral atrophy --Shock-resolved , off pressors, blood pressures within normal range, closely monitor --DIC (disseminated intravascular coagulation) vs HELLP syndrome , Resolved --Possible Eclampsia/HELLP Syndrome, resolved --ADOLPH-resolved, Stable --Sepsis 2/2 UTI s/p cefepime to cover possible pseudomonas as sputum is also growing GN rods till 01/04/21 Previous urine culture grew pansensitive ecoli Blood cultures from 12/27-no growth --Hypernatremia, resolved, cont free water with TF --DVT prophylaxis; Continue Lovenox DC planning per case management, awaiting placement Multiple social issue, very difficult to place Continue current management Brief history and hospital course; 30 year old -Martiniquais female CHE 10/25/20 at 36w5d who presents with seizures in triage on 10/02/20. Pt was not able to provide history but per pt's , she presented to the hospital to return a 24 hour urine specimen for analysis. She then suddenly reported that she did not feel good. She was taken to labor and delivery and shortly after arrival, she began seizing. During this time, a code met was called because the patient became hypoxic. She was then noted to be without a pulse. Chest compressions were started immediately, and the patient was emergently taken to the operating room for delivery of the fetus. Off note, This patient has had care at [facility] with comanagement by [facility] since 11 wks complicated by ADHD, morbid obesity, generalized anxiety disorder, panic attacks, chronic narcotic use, fibromyalgia, GERD, Irritable Bowel Syndrome, Migraines, h/o endometrial ablation and ovarian vein embolization, genital herpes, insomnia, LGA fetus, nausea and vomiting, polyhydramnios, quad screen positive for Down's Syndrome, and previous x 3. She was GBS negative. 10/02/2020-03/15/2021 daily hospital course reviewed 03/16/2021; Awaiting placement. Patient is on PEG tube feeding. Saturating well on room air. Patient is mildly tachycardic. Pending placement. 03/17/2021; Awaiting placement. Patient is on PEG tube feeding. Saturating well on room air. Patient is mildly tachycardic. Pending placement. 03/18/2021; awaiting placement. 03/19/2021; awaiting placement. 03/20/2021; awaiting placement. 03/21/21; awaiting placement. 03/22/2021; Awaiting placement. Patient is on PEG tube feeding. Saturating well on room air. Patient is mildly tachycardic. Pending placement. 03/23/2021; multiple social issues, awaiting LTAC placement 03/24/2021; pending placement. Clinically no change, I discussed with patient's mother extensively, she had numerous questions answered all of them She requested a repeat CT head as she noticed significant change in her daughters level of consciousness. Will check CT head without contrast 03/25/2021; I discussed with patient's mother extensively yesterday 03/24/2021, she requested a repeat CT scan as she feels that patient is responding f/u CT head without contrast 03/24/2021; no acute abnormalities, pronounced diffuse cerebral atrophy. 03/26/2021; awaiting placement, multiple social issues, I called and discussed CT head findings with patient's mother Ms. Santiago She verbalized understanding. Disposition; pending placement 03/30/2021 I resumed service today; Clinically no change, awaiting placement, multiple social issues 03/31/2021; multiple social issues, awaiting placement 04/01/2021; clinically no change, social issues, awaiting placement 04/02/2021; patient response to some sound by moving her head, not purposeful Did not respond to communication, awaiting placement 04/03/2021; pending placement social issues, 04/04/2021; clinically no change, awaiting placement 04/05/2021; awaiting placement, clinically stable 04/06/2021; clinically no change, patient is stable Awaiting placement, multiple social issues 04/07/2021; awaiting placement social issues. 04/09/2021; patient saturates well on room air PEG tube/PEG feeds, hemodynamically and clinically stable Stable for discharge home with home health versus placement History Interval history: I have seen and examined the patient at the bedside this morning Patient's chart and medications reviewed Patient remains unresponsive spontaneous opening eyes Vital signs reviewed Saturating well on room air Hospitalist Physical - Constitutional Vitals: Temp Pulse Resp BP Pulse Ox 98.5 F 104 H 18 104/63 95 04/09/21 05:26 04/09/21 05:26 04/09/21 05:26 04/09/21 05:26 04/09/21 05:26 General appearance: Present: well-nourished, obese, other (Anoxic encephalopathy, slightly restless at times) - EENT Eyes: Present: PERRL, EOM intact - Neck Neck: Present: supple, normal ROM - Respiratory Respiratory effort: normal Respiratory: bilateral: diminished, negative: rales, rhonchi, wheezing - Cardiovascular Rhythm: regular Heart Sounds: Present: S1 & S2 - Extremities Extremities: no ischemia, No edema - Abdominal General gastrointestinal: soft, non-tender, non-distended, normal bowel sounds, other (PEG in place) - Integumentary Integumentary: Present: clear, warm - Psychiatric Psychiatric: appropriate mood/affect, cooperative - Neurologic Neurologic: CNII-XII intact, moves all extremities HEART Score - HEART Score Age: < 45 Risk factors: 1-2 risk factors - Critical Actions Critical Actions: >7 pts:50-65% risk of adverse cardiac event. Early invasive measures Results - Labs CBC & Chem 7: 03/16/21 04:42 03/16/21 04:42 Labs: Laboratory Last Values WBC 9.4 K/mm3 (4.5-11.0) 03/16/21 04:42 RBC 5.06 M/mm3 (3.65-5.03) H 03/16/21 04:42 Hgb 12.2 gm/dl (10.1-14.3) 03/16/21 04:42 Hgb Comment See scanned result 10/04/20 Unknown Hct 37.6 % (30.3-42.9) 03/16/21 04:42 MCV 74 fl (79-97) L 03/16/21 04:42 MCH 24 pg (28-32) L 03/16/21 04:42 MCHC 33 % (30-34) 03/16/21 04:42 RDW 15.8 % (13.2-15.2) H 03/16/21 04:42 Plt Count 311 K/mm3 (140-440) 03/16/21 04:42 Lymph % (Auto) 33.5 % (13.4-35.0) 03/16/21 04:42 [place] % (Auto) 8.1 % (0.0-7.3) H 03/16/21 04:42 Eos % (Auto) 1.7 % (0.0-4.3) 03/16/21 04:42 Baso % (Auto) 0.5 % (0.0-1.8) 03/16/21 04:42 Lymph # (Auto) 3.1 K/mm3 (1.2-5.4) 03/16/21 04:42 [place] # (Auto) 0.8 K/mm3 (0.0-0.8) 03/16/21 04:42 Eos # (Auto) 0.2 K/mm3 (0.0-0.4) 03/16/21 04:42 Baso # (Auto) 0.0 K/mm3 (0.0-0.1) 03/16/21 04:42 Add Manual Diff Complete 02/09/21 10:59 Total Counted 100 02/09/21 10:59 Seg Neutrophils % 56.2 % (40.0-70.0) 03/16/21 04:42 Seg Neuts % (Manual) 58.0 % (40.0-70.0) 02/09/21 10:59 Band Neutrophils % 2.0 % 10/15/20 05:50 Lymphocytes % (Manual) 29.0 % (13.4-35.0) 02/09/21 10:59 Reactive Lymphs % (Man) 1.0 % 10/02/20 12:18 Monocytes % (Manual) 13.0 % (0.0-7.3) H 02/09/21 10:59 Eosinophils % (Manual) 1.0 % (0.0-4.3) 10/29/20 07:56 Myelocytes % 2.0 % 10/02/20 13:05 Metamyelocytes % 1.0 % 10/14/20 04:00 Nucleated RBC % Not Reportable 02/09/21 10:59 Seg Neutrophils # 5.3 K/mm3 (1.8-7.7) 03/16/21 04:42 Seg Neutrophils # Man 3.7 K/mm3 (1.8-7.7) 02/09/21 10:59 Band Neutrophils # 0.0 K/mm3 02/09/21 10:59 Lymphocytes # (Manual) 1.8 K/mm3 (1.2-5.4) 02/09/21 10:59 Abs React Lymphs (Man) 0.0 K/mm3 02/09/21 10:59 Monocytes # (Manual) 0.8 K/mm3 (0.0-0.8) 02/09/21 10:59 Eosinophils # (Manual) 0.0 K/mm3 (0.0-0.4) 02/09/21 10:59 Basophils # (Manual) 0.0 K/mm3 (0.0-0.1) 02/09/21 10:59 Metamyelocytes # 0.0 K/mm3 02/09/21 10:59 Myelocytes # 0.0 K/mm3 02/09/21 10:59 Promyelocytes # 0.0 K/mm3 02/09/21 10:59 Blast Cells # 0.0 K/mm3 02/09/21 10:59 WBC Morphology Not Reportable 02/09/21 10:59 Hypersegmented Neuts Not Reportable 02/09/21 10:59 Hyposegmented Neuts Not Reportable 02/09/21 10:59 Hypogranular Neuts Not Reportable 02/09/21 10:59 Smudge Cells Not Reportable 02/09/21 10:59 Toxic Granulation Not Reportable 02/09/21 10:59 Toxic Vacuolation Not Reportable 02/09/21 10:59 Dohle Bodies Not Reportable 02/09/21 10:59 Pelger-Huet Anomaly Not Reportable 02/09/21 10:59 Ester Rods Not Reportable 02/09/21 10:59 Platelet Estimate Consistent w auto 02/09/21 10:59 Clumped Platelets Not Reportable 02/09/21 10:59 Plt Clumps, EDTA Not Reportable 02/09/21 10:59 Large Platelets Few 02/09/21 10:59 Giant Platelets Not Reportable 02/09/21 10:59 Platelet Satelliting Not Reportable 02/09/21 10:59 Plt Morphology Comment Not Reportable 02/09/21 10:59 RBC Morphology Not Reportable 02/09/21 10:59 Dimorphic RBCs Not Reportable 02/09/21 10:59 Polychromasia Not Reportable 02/09/21 10:59 Hypochromasia 1+ 02/09/21 10:59 Poikilocytosis Not Reportable 02/09/21 10:59 Anisocytosis Not Reportable 02/09/21 10:59 Microcytosis Not Reportable 02/09/21 10:59 Macrocytosis Not Reportable 02/09/21 10:59 Spherocytes Not Reportable 02/09/21 10:59 Pappenheimer Bodies Not Reportable 02/09/21 10:59 Sickle Cells Not Reportable 02/09/21 10:59 Target Cells Not Reportable 02/09/21 10:59 Tear Drop Cells Not Reportable 02/09/21 10:59 Ovalocytes Not Reportable 02/09/21 10:59 Stomatocytes Few 10/14/20 04:00 Helmet Cells Not Reportable 02/09/21 10:59 [place] Bodies Not Reportable 02/09/21 10:59 [place] Rings Not Reportable 02/09/21 10:59 [place] Cells Not Reportable 02/09/21 10:59 Bite Cells Not Reportable 02/09/21 10:59 Crenated Cell Not Reportable 02/09/21 10:59 Elliptocytes Not Reportable 02/09/21 10:59 Acanthocytes (Spur) Not Reportable 02/09/21 10:59 Rouleaux Not Reportable 02/09/21 10:59 Hemoglobin C Crystals Not Reportable 02/09/21 10:59 Schistocytes Not Reportable 02/09/21 10:59 Malaria parasites Not Reportable 02/09/21 10:59 Sickle Cell Solubility See scanned result 10/04/20 Unknown Hemoglobin A See scanned result 10/04/20 Unknown Hemoglobin A2 See scanned result 10/04/20 Unknown Hemoglobin A2 Prime See scanned result 10/04/20 Unknown Hemoglobin C See scanned result 10/04/20 Unknown Hemoglobin D See scanned result 10/04/20 Unknown Hemoglobin E See scanned result 10/04/20 Unknown Hgb F Diffential Stain See scanned result 10/04/20 Unknown Hemoglobin F Quant See scanned result 10/04/20 Unknown Hemoglobin G See scanned result 10/04/20 Unknown Hemoglobin S See scanned result 10/04/20 Unknown Hemoglobin [place] See scanned result 10/04/20 Unknown Hemoglobin [place] See scanned result 10/04/20 Unknown Hemoglobin Analilia See scanned result 10/04/20 Unknown Variant Hemoglobin See scanned result 10/04/20 Unknown Abnorm Hgb IEF Confirm See scanned result 10/04/20 Unknown Hemoglobin Interpret See scanned result 10/04/20 Unknown Hemoglobinopathy Note See scanned result 10/04/20 Unknown Sharad Bodies Not Reportable 02/09/21 10:59 Hem Pathologist Commnt No 02/09/21 10:59 PT 13.6 Sec. (12.2-14.9) 10/21/20 13:54 INR 1.06 (0.87-1.13) 10/21/20 13:54 APTT 31.6 Sec. (24.2-36.6) 10/03/20 00:40 Fibrinogen 336 mg/dl (211-480) 10/04/20 10:00 D-Dimer 1974.47 ng/mlDDU (0-234) H 11/11/20 13:50 ABG pH 7.459 pH Units (7.350-7.450) H 10/26/20 10:30 POC ABG pCO2 20.7 mmHg (32.0-48.0) L 10/13/20 07:18 ABG pCO2 32.4 mm Hg 10/26/20 10:30 POC ABG pO2 137.9 mmHg (83-108) H 10/13/20 07:18 ABG pO2 112.2 mm Hg (80.0-90.0) H 10/26/20 10:30 POC ABG HCO3 14.8 10/13/20 07:18 ABG HCO3 22.5 mmol/L (20.0-26.0) 10/26/20 10:30 ABG O2 Saturation 98.2 % (95.0-99.0) 10/26/20 10:30 ABG O2 Content 18.5 (0.0-44) 10/26/20 10:30 POC ABG Base Excess -6.9 10/13/20 07:18 ABG Base Excess -0.6 mmol/L (-2.0-3.0) 10/26/20 10:30 ABG Hemoglobin 13.5 gm/dl (12.0-16.0) 10/26/20 10:30 ABG Oxyhemoglobin 98.3 (94-98) H 10/13/20 07:18 ABG Carboxyhemoglobin 1.3 % (0.0-5.0) 10/26/20 10:30 ABG Methemoglobin 0.5 % (0.0-1.5) 10/26/20 10:30 ABG Sodium 135.9 mmol/L (136.0-145.0) L 10/13/20 07:18 ABG Potassium 3.7 mmol/L (3.40-4.50) 10/13/20 07:18 ABG Chloride 111.0 mmol/L (98-107) H 10/13/20 07:18 ABG Glucose 109 mg/dL (65-95) H 10/13/20 07:18 VBG pH 6.949 (7.320-7.420) L* 10/02/20 Unknown Oxyhemoglobin 96.5 % (95.0-99.0) 10/26/20 10:30 Carboxyhemoglobin 0.3 (0.5-1.5) L 10/13/20 07:18 FiO2 25 % 10/26/20 10:30 Sodium 140 mmol/L (137-145) 03/16/21 04:42 Potassium 3.9 mmol/L (3.6-5.0) 03/16/21 04:42 Chloride 103.1 mmol/L (98-107) 03/16/21 04:42 Carbon Dioxide 25 mmol/L (22-30) 03/16/21 04:42 Anion Gap 16 mmol/L 03/16/21 04:42 BUN 12 mg/dL (7-17) 03/16/21 04:42 Creatinine 0.5 mg/dL (0.6-1.2) L 03/16/21 04:42 Estimated GFR > 60 ml/min 03/16/21 04:42 BUN/Creatinine Ratio 24 % 03/16/21 04:42 Glucose 95 mg/dL (65-100) 03/16/21 04:42 POC Glucose 101 mg/dL (70-105) 04/09/21 06:29 Random Insulin 43.2 uIU/mL (<=19.6) H 11/02/20 19:19 Proinsulin See scanned result 11/02/20 19:19 C-Peptide 6.23 ng/mL (0.80-3.85) H 11/02/20 19:19 Lactic Acid 1.90 mmol/L (0.7-2.0) 10/04/20 22:00 Uric Acid 7.5 mg/dL (3.5-7.6) 10/02/20 13:05 Calcium 9.6 mg/dL (8.4-10.2) 03/16/21 04:42 Ionized Calcium 4.4 mg/dL (4.8-5.6) L 10/07/20 21:00 Phosphorus 4.60 mg/dL (2.5-4.5) H 11/13/20 10:05 Magnesium 2.10 mg/dL (1.7-2.3) 11/13/20 10:05 Total Bilirubin 0.80 mg/dL (0.1-1.2) 03/04/21 04:46 AST 51 units/L (5-40) H 03/04/21 04:46 ALT 53 units/L (7-56) 03/04/21 04:46 Alkaline Phosphatase 117 units/L (35-129) 03/04/21 04:46 Lactate Dehydrogenase 769 units/L (91-180) H 10/02/20 13:05 C-Reactive Protein 0.70 mg/dL (0.00-1.30) 11/11/20 13:50 NT-Pro-B Natriuret Pep 2788 pg/mL (0-450) H 10/04/20 10:00 Total Protein 8.4 g/dL (6.3-8.2) H 03/04/21 04:46 Albumin 4.2 g/dL (3.9-5) 03/04/21 04:46 Albumin/Globulin Ratio 1.0 % 03/04/21 04:46 Procalcitonin < 0.05 ng/mL (<0.15) 03/02/21 02:30 Arterial Blood Glucose 109 mg/dL (65-95) H 10/13/20 07:18 Arterial Blood Ionized Calcium 4.6 mg/dL (4.6-5.3) 10/13/20 07:18 Urine Color Yellow (Yellow) 01/25/21 09:51 Urine Turbidity Cloudy (Clear) 01/25/21 09:51 Urine pH 7.0 (5.0-7.0) 01/25/21 09:51 Ur Specific [place] 1.011 (1.003-1.030) 01/25/21 09:51 Urine Protein <15 mg/dl mg/dL (Negative) 01/25/21 09:51 Urine Glucose (UA) Neg mg/dL (Negative) 01/25/21 09:51 Urine Ketones Neg mg/dL (Negative) 01/25/21 09:51 Urine Blood Neg (Negative) 01/25/21 09:51 Urine Nitrite Neg (Negative) 01/25/21 09:51 Urine Bilirubin Neg (Negative) 01/25/21 09:51 Urine Urobilinogen < 2.0 mg/dL (<2.0) 01/25/21 09:51 Ur Leukocyte Esterase Neg (Negative) 01/25/21 09:51 Urine WBC (Auto) 6.0 /HPF (0.0-6.0) 01/25/21 09:51 Urine RBC (Auto) 3.0 /HPF (0.0-6.0) 01/25/21 09:51 U Epithel Cells (Auto) < 1.0 /HPF (0-13.0) 01/25/21 09:51 Urine Bacteria (Auto) 1+ /HPF (Negative) 01/18/21 08:47 Urine WBC Clumps 3+ /HPF 11/11/20 13:50 Calcium Oxalate Crystal Few 11/11/20 13:50 Urine Mucus Few /HPF 01/25/21 09:51 Urine Yeast (Budding) 2+ /HPF 01/25/21 09:51 Vancomycin Trough 12.6 ug/mL (5.0-20.0) 10/21/20 13:54 Random Vancomycin 10.7 ug/mL (0-40.0) 10/16/20 13:09 Phenytoin 5.7 ug/mL (10.0-20.0) L 10/13/20 07:00 C. difficile Tox (PCR) Positive (Negative) 10/16/20 10:22 Coronavirus (PCR) Negative (Negative) 10/08/20 14:15 Blood Type O POSITIVE 10/02/20 12:50 Antibody Screen Negative 10/02/20 12:50 Crossmatch See Detail 10/02/20 12:50 - Diagnostic Impressions Diagnostic Impressions: Echocardiogram 10/03/20 13:42 Transthoracic Echocardiogram Indication: S/P Cardiac Arrest R/O Cardiomyopathy BP: 133/71 Conclusions *Global left ventricular systolic function is normal. *The estimated ejection fraction is 60-65%. *There is trace of mitral regurgitation. *The right 0heart chambers are both slightly dilated. *There is mild tricuspid regurgitation. *There is mild-moderate pulmonary hypertension. *The right ventricular systolic pressure is calculated at 44 mmHg. *The study quality is technically difficult. Findings Procedure Info: The study quality is technically difficult. The study is technically limited due to patient body habitus. The study was technically limited due to the patient's inability to lay in the left lateral decubitus position. Left Ventricle: The left ventricular chamber size is normal. There is no left ventricular hypertrophy. Global left ventricular systolic function is normal. The estimated ejection fraction is 60-65%. Left Atrium: The left atrial chamber size is normal. Right Ventricle: The right ventricle is slightly dilated. Right Atrium: The right atrium is mildly dilated. Aortic Valve: The aortic valve leaflets are mildly thickened. There is no evidence of aortic regurgitation. There is no evidence of aortic stenosis. Mitral Valve: The mitral valve leaflets are mildly thickened. There is trace of mitral regurgitation. There is no evidence of mitral stenosis. Tricuspid Valve: There is mild tricuspid regurgitation. The right ventricular systolic pressure is calculated at 44 mmHg. There is evidence of mild pulmonary hypertension. Pulmonic Valve: There is trace pulmonic regurgitation. Pericardium: There is no pericardial effusion. Aorta: There is no dilatation of the ascending aorta. There is no dilatation of the aortic root. Venous: The inferior vena cava is dilated. Measurements Chambers 2D Name Value Normal Range IVSd (2D) 1 cm (0.6 - 1.1) LVPWd (2D) 1.01 cm (0.6 - 1.1) LVIDd (2D) 4.58 cm (3.7 - 5.6) LVIDs (2D) 3.17 cm (2 - 3.8) LV FS (2D) 30.93 % - EF Teichholz (2D) 58.66 % - Ao root diameter (2D) 2.94 cm (2 - 3.7) Volumes/Mass Name Value Normal Range LA ESV SP 4CH (A/L) 72.82 ml - LA ESV SP 2CH (A/L) 66.86 ml - LA ESV BP (A/L) 74.49 ml - LA ESV SP 4CH (MOD) 71.03 ml - LA ESV SP 2CH (MOD) 64.3 ml - LV EDV SP 4CH (MOD) 98.82 ml - LV ESV SP 4CH (MOD) 24.8 ml - EF SP 4CH (MOD) 74.9 % - LV EDV SP 2CH (MOD) 86.1 ml - LV ESV SP 2CH (MOD) 36.93 ml - EF SP 2CH (MOD) 57.11 % - LV EDV BP 94.4 ml - LV ESV BP 32.66 ml - BP EF (MOD) 65.4 % - Diastolic/Systolic Function Name Value Normal Range MV E-wave Vmax 1.04 m/sec - MV deceleration time 160.46 msec - MV A-wave Vmax 0.92 m/sec - MV E:A ratio 1.14 ratio - Aortic Valve Name Value Normal Range AV Vmax 2.12 m/sec - AV VTI 22.37 cm - AV peak gradient 17.95 mmHg - AV mean gradient 7.29 mmHg - LVOT diameter 2.01 cm - LVOT Vmax 1.8 m/sec - LVOT VTI 27.17 cm - LVOT peak gradient 12.91 mmHg - LVOT mean gradient 6.83 mmHg - SV LVOT 86.42 ml - ANITA (continuity Vmax) 2.7 cm2 - ANITA (continuity VTI) 3.86 cm2 - Ascending Ao 3.18 cm - Tricuspid Valve Name Value Normal Range TV E-wave Vmax 0.88 m/sec - TR Vmax 3.01 m/sec - TR peak gradient 36.27 mmHg - RAP 8 mmHg - RVSP 44 mmHg - IVC diameter 2.65 cm (1.2 - 2.3) Pulmonic Valve/Qp:Qs Name Value Normal Range PV Vmax 1.22 m/sec - PV peak gradient 5.91 mmHg - RVOT Vmax 0.87 m/sec - RVOT VTI 13.32 cm - RVOT peak gradient 3 mmHg - PV acceleration time 110.37 msec - [place]/IV: Voiding Method Incontinent IV Catheter Type [Right Foot] INT / Saline Lock IV Catheter Type [Left Forearm Peripheral IV ] IV Catheter Type [Left Wrist] INT / Saline Lock IV Catheter Type [Right Hand] INT / Saline Lock IV Catheter Type [Right INT / Saline Lock Antecubital] IV Catheter Type [Right Upper Mid-line arm] IV Catheter Type [Left Triple Lumen Cath Internal Jugular] IV Catheter Type [Left Hand] Peripheral IV IV Catheter Type [Left Peripheral IV Antecubital] Active Medications - Current Medications Current Medications: Generic Name Dose Route Start Last Admin Trade Name Freq PRN Reason Stop Dose Admin Acetaminophen 650 mg 10/05/20 16:34 04/05/21 11:19 Acetaminophen 325 Mg/10.15 Ml Oral Liqd Unit Dose FEEDTUBE 650 mg Q6H PRN Administration Non Cardiac Pain or Temp>100.5 Albuterol 2.5 mg 11/05/20 13:03 11/06/20 13:04 Albuterol 2.5 Mg/3 Ml Nebu IH 2.5 mg Q4HRT PRN Administration Shortness Of Breath Alprazolam 0.25 mg 01/20/21 13:33 04/07/21 22:04 Alprazolam 0.25 Mg Tab PO 0.25 mg Q8H PRN Administration Anxiety Lipase/Protease/Amylase 1 each 10/05/20 11:09 Lipase 10,500/Protease 25,000/Amylase 43,750 (Units) Dr Barakat FEEDTUBE PRN PRN For Clogged Feeding Tube Enoxaparin Sodium 40 mg 10/22/20 10:00 04/08/21 09:25 Enoxaparin 40 Mg/0.4 Ml Inj SUB-Q 40 mg DAILY ERINN Administration Protocol Famotidine 20 mg 10/07/20 10:00 04/08/21 22:15 Famotidine 20 Mg Tab PO 20 mg BID ERINN Administration Hydrophilic Ointment 1 applic 01/03/21 13:00 02/16/21 09:56 Lip Therapy Vaseline TP 1 applic DIRECT PRN Administration Dry Lips Metoprolol Tartrate 50 mg 02/02/21 16:01 04/08/21 22:14 Metoprolol Tartrate 25 Mg Tab PO 50 mg BID ERINN Administration Morphine Sulfate 2 mg 01/20/21 13:33 Morphine 2 Mg/1 Ml Inj IV Q4H PRN Pain, Moderate (4-6) Ondansetron HCl 4 mg 02/10/21 11:38 02/10/21 13:18 Ondansetron 4 Mg/2 Ml Inj IV 4 mg Q4H PRN Administration Nausea And Vomiting Simple Syrup 15 ml 10/05/20 11:09 Simple Syrup 15 Ml FEEDTUBE PRN PRN Hypoglycemia Simple Syrup 30 ml 10/05/20 11:09 03/23/21 06:11 Simple Syrup 15 Ml FEEDTUBE 30 ml PRN PRN Administration Hypoglycemia Sodium Bicarbonate 325 mg 10/05/20 11:09 12/16/20 08:19 Sodium Bicarbonate 325 Mg Tab FEEDTUBE 325 mg PRN PRN Administration For Clogged Feeding Tube Nutrition/Malnutrition Assess - Dietary Evaluation Nutrition/Malnutrition Findings: Nutrition Notes Start: 10/04/20 11:13 Freq: Status: Active Protocol: Document 04/07/21 14:35 (Rec: 04/07/21 14:37 [email or web address]) Nutrition Notes Initial or Follow up Reassessment Other Pertinent Diagnosis s/p cardiac arrest x 2, anoxic brain injury Current Diet TF - Promote at 65ml/hr Labs/Tests Reviewed Pertinent Medications Reviewed Height 5 ft 8 in Weight 91.2 kg [place] Body Weight (kg) 63.63 BMI 30.5 Weight Status Underweight Subjective/Other Information FU for TF tolerance. TF running at goal and pt tolerating. Percent of energy/protein needs met: 100%/100% Burn Absent Trauma Absent GI Symptoms None Difficulty In Swallowing,Chewing Current % PO Negligible Minimum of two criteria No #1 Nutrition Diagnosis Inadequate oral intake Diagnosis Progress(for reassessment Continues documentation) Is patient on ventilator? No Is Patient Ambulatory and/or Out of Bed No REE-([facility]-confined to bed) 2005.580 Kcal/Kg value to use for calculation 17 Approximate Energy Requirements Using 1550 kcal/Kg Calculation Used for Recommendations [facility] Additional Notes Pro needs 0.8-1g/k-89g/ day Fluid needs 1ml/kcal Nutrition Intervention Nutrition Support: Continue Promote at 65 mL/hr Flush 100 ml q4h Kcal 1,560 Protein (gm) 98 Fluid (mL) 1,309 Goal #1 TF tolerance Goal #2 TF to meet at least 75% estimated energy and protein needs. Follow-Up By: 04/14/21 Additional Comments FU for stable TF
[2021-04-09] MEDS: ENOXAPARIN 40 MG/0.4 ML INJ SUB-Q SCH (09:34)
[2021-04-09] MEDS: METOPROLOL TARTRATE 25 MG TAB PO SCH ×2 (09:35→22:17)
[2021-04-09] MEDS: FAMOTIDINE 20 MG TAB PO SCH ×2 (09:35→22:17)
[2021-04-09] MEDS: ALPRAZolam 0.25 MG TAB PO PRN (17:06)
--- NOTE | 2021-04-10 11:30 | Progress Note ---
Assessment and Plan Assessment and Plan 30 y/o female patient with Eclampsia/help syndrome, s/p emergent section with DIC, hemorrhage, supracervical abdominal hysterectomy, acute respiratory failure , tracheostomy on T-piece with morbid obesity, s/p cardiac arrest 12/08/2019 status post CPR per ACLS, acute hypoxic brain injury Acute kidney injury improved, severe shock requiring pressors, DIC septic shock improved, history of C. difficile colitis completed treatment with vancomycin. Tracheostomy on T-piece, continues to require 5 L of oxygen. Herpetic flareup, ID started treatment with antibiotics, patient is waiting for SNF placement DC planning per case management Assessment and plan: --Persistent hypoglycemia; patient is requiring continuous D10 W infusion CT abdomen done to rule out insulinoma, CT abdomen report negative for pancreatic tumor We will closely monitor --Cardiac arrest; 10/07/2020 ,status post CPR --Acute hypoxic brain injury; Supportive care, closely monitor --Acute hypoxic respiratory failure: Tracheostomy on T-piece , today on 4.5 L oxygen, saturating 100% Supportive care, Pulmonary critical following COVID-19 negative C. difficile positive; Patient on contact isolation Completed treatment --Afebrile: Blood, urine, tracheal aspirate cultures New cultures negative to date Monitor off antibiotics Closely monitor --Sepsis; received antibiotics Continue to monitor off antibiotics ID following --COVID-19 test negative; 10/08/2020 --C. difficile colitis test; positive; 10/16/2020 --Acute metabolic encephalopathy --Acute kidney injury; vasomotor nephropathy Resolved, renal function within normal limits, closely monitor --Shock; monitor of pressors Blood pressures reasonable level --DIC; sepsis, septic shock, resolved --History of preeclampsia; / hemorrhage Status post hysterectomy --History of C. difficile colitis; completed oral vancomycin --DVT/SVT and right upper extremity Very poor prognosis, Consults recommendations noted and appreciated We will closely monitor the patient and adjust management as needed Plan of care reviewed with the patient's nurse. Waiting for [facility] facility placement Subjective Date of service: 04/10/21 Principal diagnosis: Eclampsia/HELLP Syndrome, ADOLPH, DIC; s/p , s/p supracervical hyst Interval history: 30 y/o female patient with Eclampsia/help syndrome, s/p emergent section with DIC, hemorrhage, supracervical abdominal hysterectomy, acute respiratory failure , tracheostomy on T-piece with morbid obesity, s/p cardiac arrest 12/08/2019 status post CPR per ACLS, acute hypoxic brain injury Acute kidney injury improved, severe shock requiring pressors, DIC septic shock improved, history of C. difficile colitis on vancomycin. Tracheostomy on T-piece, continues to require 5 L of oxygen. Brief history; 30 year old -[place] female CHE 10/25/20 at 36w5d who presents with seizures in triage on 10/02/20. Pt was not able to provide history but per pt's , she presented to the hospital to return a 24 hour urine specimen for analysis. She then suddenly reported that she did not feel good. She was taken to labor and delivery and shortly after arrival, she began seizing. During this time, a code met was called because the patient became hypoxic. She was then noted to be without a pulse. Chest compressions were started immediately, and the patient was emergently taken to the operating room for delivery of the fetus. Off note, This patient has had care at [facility] with comanagement by [facility] since 11 wks complicated by ADHD, morbid obesity, generalized anxiety disorder, panic attacks, chronic narcotic use, fibromyalgia, GERD, Irritable Bowel Syndrome, Migraines, h/o endometrial ablation and ovarian vein embolization, genital herpes, insomnia, LGA fetus, nausea and vomiting, polyhydramnios, quad screen positive for Down's Syndrome, and previous x 3. She is GBS negative. , Patient tracheostomy on ventilatory support, unable to wean, continue supportive care poor prognosis 11:30: Pt brought to L&D triage for evaluation of possible labor. Pt accompanied by her spouse. Pt spouse poor historian; unable to obtain history- allergies at this time. Pt taken from registration to triage area via . Pt unresponsive, actively seizing with snorous respirations. benefit authorizer, Kassy, called and requ esting assistance. 11:35: Multiple staff at bedside. Pt 02 sat 67% on nonrebreather, unable to read BP . Yifan Theodore CRNA, at bedside for intubation and assistance with IV insertion. INT attempt by multiple RNs unsuccessful at this time. 11:42: Pt being bagged by KORIN, 02% 79%. No pulse palpated, compressions on at this time; bharati young called and Dr. Newberry preparing OR for emergent c/s. 11:44: Continued compressions on stretcher while transporting pt to OR 1. Pt being bagged with jaw thrust manuever in place by KORIN Stringer student. 11:45: Arrival to OR 1. Dr. Newberry and Dr. Portillo present for emergent c/s. Code team arrived for continued care. patient revived and c/s done Patient has been bleeding from C/s site followed by supracervical hysterectomy for severe bleeding, Patient transfused multiple units of PRBC, Patient in DIC. Patient transferred to the ICU Hospital course; 10/03. Patient seen and examined at bedside this morning. Patient is nonresponsive and mechanically ventilated. On pressors. Labs reviewed-has leukocytosis, anemia, thrombocytopenia, ADOLPH and lactic acidosis. Started on IV antibiotics to cover possible sepsis secondary to DIC. Hematology oncology recommendations appreciated-needs additional cryoprecipitate and FFP. Monitor D-dimer, fibrinogen and frequent labs. Nephrology consulted for lactic acidosis and ADOLPH. 10/04. Remains mechanically ventilated. [place] antibiotics. Labs shows improved acidosis - lactic acid 3.5. Hb drop noted. Getting transfused 2 units PRBCs. Platelet count is ~40k. Continue to monitor labs closely. Critical care team on board. 10/05; xray reviewed, concerning for multifocal infilrate, likely underlying Pneumonia, will add ID consult to assist with management of this critically ill patient, start tube feed, closely monitor renal system 10/06: Resumed care, remains on mechanical ventilation. No active bleeding, H&H stable. Continue to monitor CBC and BMP. Continue IV antibiotic for underlying pneumonia. Follow critical care and ID recommendation. 10/07: Remains on mechanical ventilation. No active bleeding, H&H stable. Critical care following, wean off ventilation as tolerated. 10/08: Patient had another cardiac arrest last night. Remains on mechanical ventilation, update family. Continue supportive care -poor prognosis 10/09: Called patient mother and discussed about patient care and management. Answered all question to best of my knowledge and family satisfaction. Patient remains on mechanical ventilation, cardiac arrest x2 so far. Critically sick, poor prognosis 10/10: remains on mechanical ventilation. h/h stable, no active bleeding. monitor CBC/BMP 10/11: WBC trended up with diarrhea, started on vancomycin po. remains on MV, off pressor, tolerating TF 10/12: remains on MV, off pressor, tolerating TF. called family for update but unable to reach, could not leave message as it was full. cont supportive care, wean off vent as tolerated. 10/13/2020; patient is on mechanical ventilation, tolerating tube feeding. Patient has labored breathing. Neuro was consulted and recommend MRI. Patient is on Precedex. Rectal tube in place. 10/14/2020; patient is on mechanical ventilation, Precedex. Patient had fever and blood culture ordered. Patient is on IV vancomycin per ID recommendation. Neuro consulted and recommend MRI. Continue to monitor. Prognosis is guarded. 10/15/2020; patient is on mechanical ventilation, Precedex. Patient had fever and blood culture ordered. Patient is on IV vancomycin per ID recommendation. Neuro consulted and recommend MRI. Continue to monitor. Prognosis is guarded. 10/17: Remains with C.DIFF and Bactermia, Poor prognosis. No purposeful movement. MRI and EEG discussed with Intensvisit, Continue aggressive BP control. 10/18: Blood pressure better controlled MRI done 10/15 shows mild improvement in edema. We will continue to monitor mother was at bedside yesterday. Nursing documentation trach and PEG discussed with the mother including goals of care. She is still in denial about the gravity of her daughters her condition which is understandable considering her age. Continue aggressive management at this time. Await for bacteremia to clear by ID before placing PICC line. 10/19: Patient for possible PEG and Trach, ID following, repeat cultures remain negative. Poor prognosis 10/20: Pt noted to DVT and SVT in the RUE, Vascular consult and will also obtain Hematology for possible considering changing in Anticoagulation. CONTINUE TO MONITOR H/H and PLT. Family updated by Intens[employer]. Heparin gtt started. Will check CBC and BMP 10/21: Continue supporive care, Diarrhea now resolving, But still with persistent Fever, May need repeat CT/AP per ID, still with profused Encephalopathy 10/22: Continue supportive care, weaning, awaiting repeat Imaging. FOLLOW Fever curve. Enoxparin restarted 10/23: Continue supportive care, wean as tolerated. 10/24; Started on CPAP trial, discussed with pulmonary, still with diarrhea. 10/25: Patients seen and examined, no clinical changes, still with diarrhea. ?meaningful recovery. 10/26: Clinically unchanged, continue CPAP trial, Will discuss with Neurology about re-evaluation, ?Need for repeat CT head. ?PRESS considering initial elevated BP, now stable. 10/27; tracheostomy on vent, weaning trials, vital signs noted, poor prognosis 10/28; unable to wean, tracheostomy on vent. Sepsis. Continue current management. Consults and recommendations noted and appreciated 10/30/2020;Patient on T-piece 5 L of oxygen not in acute distress, noncommu nicative 11/02/2020; patient on T-piece 5 L of oxygen 11/03/2020; patient's fever slightly improved low-grade, continue current management, remains on T-piece with 5 L of oxygen 11/04/2020; T-max last 24 hours 100.3 F, new cultures negative to date, monitor off antibiotics Patient is off Levophed, blood pressures reasonable level, tracheostomy on T- piece 3 to 5 L nasal cannula oxygen 11/05/2020; tracheostomy on T-piece patient remains on 5 L of nasal cannula oxygen, unresponsive severe hypoxic brain injury I called patient's mother Ms. Pamela Bassett as well as patient's spouse Mr. Danilo Dimas at [phone] unable to reach them Left voicemail on Ms. Pamela Bassettz phone and encouraged him to call back 11/06/2020; I tried to call again today Ms. Pamela Bassett to discuss patient's condition and treatment plan and update consultants recommendations and patient's prognosis., unable to reach her 11/07/20 Will try LTAC/Hospice 11/08/20 Same condition 11/09/2020 Same condition 11/10/2020; family conference was held by case management yesterday 11/09/2020, family decided and agreed for SNF placement 11/11/2020; patient seen and examined, clinically no change tracheostomy on 5 L of nasal cannula oxygen, hemodynamically and clinically stable for discharge To LTAC versus SNF, DC planning per case management 11/12/2020; clinically no change, continue current management, DC planning per case management possible SNF placement 11/13/2020; patient is receiving herpes flareup treatment per ID 11/14/2020; clinically no change, awaiting SNF placement 11/15/2020; clinically no change, tracheostomy on T-piece on 5 L oxygen, awaiting placement 11/16/2020; patient awaiting placement 11/18/2020; abdominal CT scan negative for insulinoma or pancreatic tumor ,clinically no change Awaiting SNF placement 11/19/2020; remains on 4 L of oxygen tracheostomy via T-piece, awaiting SNF placement 11/20/2020 Awaiting SNF placement 11/21/2020 Waiting for SNF placement 11/22/2020 Waiting for placement 11/23/2020 Waiting for placement 11/24/2020 through 12/24/2020 Patient waiting for placement 11/27/2020; patient remains hypoglycemic on D10 W IV fluids, CT abdomen negative for insulinoma Remains stable awaiting SNF placement, tracheostomy on 5 L oxygen via T-piece 11/28/2020; awaiting SNF placement 11/29/2020; patient remains unresponsive, tracheostomy on T-piece, on 4 to 5 L of oxygen Wean as tolerated, DC planning per case management possible SNF placement 11/30/2020; awaiting SNF placement 12/02/2020; awaiting placement, stable for discharge 12/03/2020; clinically no change, awaiting placement, tracheostomy on T-piece, anoxic brain injury 12/04/2020 Patient has anoxic encephalopathy with anoxic brain brain injury Awaiting placement 12/05/2020; anoxic brain injury, awaiting placement. 12/06/20; anoxic brain injury. Awaiting placement. 12/07/2020; anoxic brain injury, awaiting placement. 12/09/2020; anoxic brain injury, awaiting placement. 12/10/2020; patient had episodes of fever overnight. CBC, BMP, blood culture, UA and chest x-ray ordered, will follow and manage accordingly. Urinalysis is suggestive of UTI and I put the patient on ceftriaxone, order urine culture. Chest x-ray is normal. 12/11/2020; patient is on ceftriaxone day 2 for UTI. We will continue to follow urine culture. 12/12/2020. Day #3 of Rocephin for UTI. We will continue for 2 more days while she is here. Present UTI. 12/13/2020. Day #4 of Rocephin for UTI. Patient remains on 50% with tracheostomy. Remains unresponsive with evidence of anoxic encephalopathy unable to make needs known. 12/14/2020. Day #5 of Rocephin for UTI completed today. Remains encephalopathic unable to make needs known. Remains on 50% unable to decrease oxygen via tracheostomy. Overall prognosis remains extremely poor. 3: Continue to monitor. Stop and monitor antibiotics at this time. Continue to wean oxygen as tolerated. Wean oxygen as tolerated. Case management working on placement. 12/16: Continue supportive care aspiration precautions. Awaiting placement discussion. Monitor fever curve. Prognosis remains poor no evidence of neurological recovery as of today 12/17: Continue supportive care, check labs and chest xray. Still monitor off antibiotics. Monitor Sodium level 12/18: Patient remains with intermittent low grade fever, reviewed EEG from September again, consistent for Ischemic Hypoxic Encephalopathy, patient with decorticating posturing type presentation. Will discuss with mounter flutes and piccolos to optimize diet so we can discontinue D5. CXR with no abnormality. Discussed extensively with the nursing staff at bedside CXR IMPRESSION: 1. No acute findings. 12/19: No clinical change 12/20: No clinical change, now off abx, monitor, discussed her medications with our pharmacist I believe that her posture and rigidity is likely from underlying anoxic encephalopathy. Continue to monitor and await placement decision. Continue aggressive suctioning. Plan discussed in detail with the nursing staff 12/21: Continue supportive care. Will give 500 cc bolus of fluid today to replace insensible losses. Tachycardia appears to be improving. Blood pressure precludes adjusting cardiac meds. Still awaiting placement from case management. Plan discussed in detail with the nursing staff 12/22. Continue support supportive care. Tracheostomy and PEG in place. Remains nonresponsive. Awaiting placement. 12/23. Continue support supportive care. Tracheostomy and PEG in place. Remains nonresponsive. Awaiting placement. Remains tachycardic. Decrease dose of lasix. Will try low dose metoprolol. Monitor BP closely 12/24. Continue support supportive care. Tracheostomy and PEG in place. Remains nonresponsive. Awaiting placement. Heart rate slightly better. Continue to monitor BP closely 12/25. Continue support supportive care. Tracheostomy and PEG in place. Remains nonresponsive. Awaiting placement. 12/26. Continue support supportive care. Tracheostomy and PEG in place. Remains nonresponsive. Awaiting placement 12/27. Continue support supportive care. Tracheostomy and PEG in place. Remains nonresponsive. Awaiting placement 12/28. Had fever yesterday. Blood culture drawn. UA - UTI - started on antibiotics. Now tracheal aspirate is growing GN rods. 12/29: Continue IV antibiotics, continue supportive care. Since admission patient has shown minimal or no chance of neurological recovery. Need 24/7 assistance. Currently on trach and PEG, nonverbal. Waiting on SNF placement. Discussed with case worker today. 12/30: Continue IV antibiotics for UTI, continue supportive care. Pending placement 12/31: continue supportive care. continue supportive care. Pending placement 01/01: continue supportive care. Pending placement. cont Iv abx for UTI till 01/04 01/02: Continue supportive care, pending placement. Sodium level slightly elevated, will start hypotonic fluid. Continue antibiotics till 01/04 01/03; cont hypotonic fluid, increase free water with TF for hypernatremia, follow BMP. cont supportive care. pending placement. cont cefepime. recx blood 01/04: resolved hyponatremia, cont supportive care, pending placement. Last day of supplement today. 01/05: Continue supportive care, pending placement. Monitor H&H and fever curve off antibiotic. 01/06; monitor off abx, suction as needed, Continue supportive care, pending placement. 01/07: Discharge pending on placement, vitals stable. Continue supportive care 01/08: Discharge pending on placement, vitals stable. Continue supportive care. stop lasix, increase metoprolol to 25mg BID for ST. 01/09 patient resting with eyes closed. Opens eyes to tactile stimulus, has a blink reflex, does not follow simple commands, has a T-collar / G-tube Lab results reviewed, low-grade fever, 01/10 Eyes open, does not follow simple commands, no acute events overnight 01/11 no acute events overnight, Waiting for placement 01/12 No acute events overnight. Patient awaiting for placement 01/13. No new issues. Awaiting placement 01/14. No new issues. Awaiting placement. 01/15. No new issues. Awaiting placement. 01/16. No new issues. Patient remain stable. Awaiting placement. Check ma intenance labs. 01/17. Routine maintenance labs were ordered and are still pending. Await placement. 01/18. Patient with low-grade fever past 24-48 hrs. WBC within normal limits. Check chest x-ray, urinalysis and consider blood cultures. Continue tracheostomy care, secretion control and airway management. Patient currently with PEG and tube feedings at 60 cc an hour. Nutritional support and aspiration precautions. 01/19. Temperature 100.7 overnight. Continue to monitor closely. Continue tracheostomy care, secretion control and airway management. Patient currently with PEG and tube feedings at 60 cc an hour. Nutritional support and aspiration precautions. 01/20. Continue to monitor closely. Continue tracheostomy care, secretion control and airway management. Patient currently with PEG and tube feedings at 60 cc an hour. Nutritional support and aspiration precautions. 01/21. Afebrile overnight. Continue to monitor closely. Continue tracheostomy care, secretion control and airway management. Patient currently with PEG and tube feedings at 60 cc an hour. Nutritional support and aspiration precautions. 01/22. Continue to monitor closely. Continue tracheostomy care, secretion control and airway management. Patient currently with PEG and tube feedings at 60 cc an hour. Nutritional support and aspiration precautions. 01/23. Continue tracheostomy care, secretion control and airway management. Patient currently with PEG and tube feedings at 60 cc an hour. Nutritional support and aspiration precautions. Will get routine labs tomorrow. 01/24. Labs reviewed. No abnormalities. Continue tracheostomy care, secretion control and airway management. Patient currently with PEG and tube feedings at 60 cc an hour. Nutritional support and aspiration precautions. 01/25. Temp 100.6. More sleepy today. Will get chest xray, blood culture, urinalysis, sputum cultures. Will start on empirical abx. 01/26: Vitals noted, slightly tachycardic. Follow culture work-up, continue supportive care. 01/27: Spiking low-grade temp, negative UA, sputum culture and recent blood cultures also negative. Continue to monitor off antibiotics. Continue supportive care. Pending placement. 01/28: cont to spike low grade temp, negative UA, sputum culture and recent blood cultures also negative. Continue to monitor off antibiotics. will order fpr sinus xry. Continue supportive care. Pending placement. 01/29: Continue to follow clinically, intermittently spiking low-grade temp, all recent culture work is negative, negative UA, normal respiratory jaylan 1 tracheal aspirate. Vitals noted and currently stable. Pending placement 01/30: Clinically unchanged, continue to monitor vitals, continue supportive cares. Pending placement. Discussed plan of care with RN at the bedside. 01/31 - TODATE: cont supportive care, pending placement. monitor vitals carefully. Discussed with family at the bedside. 02/06. Patient afebrile today. Continue trach care. Secretions stable today. Culture data negative so far. Awaiting placement. 02/07. Awaiting placement awaiting family member to evaluate papers. Continue trach care secretions stable. Pending placement 02/09: Intermittent fever, ?drug related, will check cxr and also labs. No new complaints. 02/10: Patient's trach dislodged today. Nevertheless respiratory status is intact attempt to reinsert was unsuccessful will monitor discussed with nursing staff to pay close attention to the patient. Considering that this was not a planned decannulation I will start the patient on continuous pulse ox until full evaluation was done by pulmonary. 02/13/2021 Vital signs stable Unresponsive secondary to anoxic encephalopathy Awaiting placement 02/14/2021 Awaiting placement 02/15/2021 Anoxic encephalopathy Awaiting placement 02/16/2021 Anoxic encephalopathy Awaiting placement 02/17/2021 Anoxic encephalopathy awaiting placement 02/18/21 to 03/15/21 awaiting placement 03/16/2021; Awaiting placement. Patient is on PEG tube feeding. Saturating well on room air. Patient is mildly tachycardic. Pending placement. 03/17/2021; Awaiting placement. Patient is on PEG tube feeding. Saturating well on room air. Patient is mildly tachycardic. Pending placement. 03/18/2021; awaiting placement. 03/19/2021; awaiting placement. 03/20/2021; awaiting placement. 03/21/21; awaiting placement. 03/22/2021; Awaiting placement. Patient is on PEG tube feeding. Saturating well on room air. Patient is mildly tachycardic. Pending placement. 03/23/2021; multiple social issues, awaiting LTAC placement 03/24/2021; pending placement. Clinically no change, I discussed with patient's mother extensively, she had numerous questions answered all of them She requested a repeat CT head as she noticed significant change in her daughters level of consciousness. Will check CT head without contrast 03/25/2021; I discussed with patient's mother extensively yesterday 03/24/2021, she requested a repeat CT scan as she feels that patient is responding f/u CT head without contrast 03/24/2021; no acute abnormalities, pronounced diffuse cerebral atrophy. 03/26/2021; awaiting placement, multiple social issues, I called and discussed CT head findings with patient's mother Ms. Santiago She verbalized understanding. Disposition; pending placement 03/30/2021 I resumed service today; Clinically no change, awaiting placement, multiple social issues 03/31/2021; multiple social issues, awaiting placement 04/01/2021; clinically no change, social issues, awaiting placement 04/02/2021; patient response to some sound by moving her head, not purposeful Did not respond to communication, awaiting placement 04/03/2021; pending placement social issues, 04/04/2021; clinically no change, awaiting placement 04/05/2021; awaiting placement, clinically stable 04/06/2021; clinically no change, patient is stable Awaiting placement, multiple social issues 04/07/2021; awaiting placement social issues. 04/09/2021; patient saturates well on room air PEG tube/PEG feeds, hemodynamically and clinically stable Stable for discharge home with home health versus placement 04/10/21 Awaiting placement Objective - Constitutional Vitals: Vital Signs - 12hr 04/10/21 04:22 Temperature 98.3 F Pulse Rate 83 Respiratory 20 Rate Blood Pressure 101/69 O2 Sat by Pulse 100 Oximetry - Labs CBC & Chem 7: 03/16/21 04:42 03/16/21 04:42 Labs: Abnormal lab results 04/09/21 Range/Units 23:24 POC Glucose 108 H (70-105) mg/dL HEART Score - HEART Score Age: < 45 Risk factors: 1-2 risk factors - Critical Actions Critical Actions: >7 pts:50-65% risk of adverse cardiac event. Early invasive me asures
[2021-04-10] MEDS: FAMOTIDINE 20 MG TAB PO SCH ×2 (11:32→21:32)
[2021-04-10] MEDS: METOPROLOL TARTRATE 25 MG TAB PO SCH ×2 (11:33→23:17)
[2021-04-10] MEDS: ENOXAPARIN 40 MG/0.4 ML INJ SUB-Q SCH (11:33)
[2021-04-10] MEDS: ACETAMINOPHEN 325 MG/10.15 ML ORAL LIQD UNIT DOSE FEEDTUBE PRN (16:37)
[2021-04-11] MEDS: METOPROLOL TARTRATE 25 MG TAB PO SCH ×2 (09:09→22:31)
[2021-04-11] MEDS: ENOXAPARIN 40 MG/0.4 ML INJ SUB-Q SCH (09:10)
[2021-04-11] MEDS: FAMOTIDINE 20 MG TAB PO SCH ×2 (09:10→22:31)
[2021-04-11] MEDS: ALPRAZolam 0.25 MG TAB PO PRN (12:06)
[2021-04-11] MEDS: ACETAMINOPHEN 325 MG/10.15 ML ORAL LIQD UNIT DOSE FEEDTUBE PRN (12:07)
--- NOTE | 2021-04-11 23:33 | Progress Note ---
Assessment and Plan Assessment and Plan 30 y/o female patient with Eclampsia/help syndrome, s/p emergent section with DIC, hemorrhage, supracervical abdominal hysterectomy, acute respiratory failure , tracheostomy on T-piece with morbid obesity, s/p cardiac arrest 12/08/2019 status post CPR per ACLS, acute hypoxic brain injury Acute kidney injury improved, severe shock requiring pressors, DIC septic shock improved, history of C. difficile colitis completed treatment with vancomycin. Tracheostomy on T-piece, continues to require 5 L of oxygen. Herpetic flareup, ID started treatment with antibiotics, patient is waiting for SNF placement DC planning per case management Assessment and plan: --Persistent hypoglycemia; patient is requiring continuous D10 W infusion CT abdomen done to rule out insulinoma, CT abdomen report negative for pancreatic tumor We will closely monitor --Cardiac arrest; 10/07/2020 ,status post CPR --Acute hypoxic brain injury; Supportive care, closely monitor --Acute hypoxic respiratory failure: Tracheostomy on T-piece , today on 4.5 L oxygen, saturating 100% Supportive care, Pulmonary critical following COVID-19 negative C. difficile positive; Patient on contact isolation Completed treatment --Afebrile: Blood, urine, tracheal aspirate cultures New cultures negative to date Monitor off antibiotics Closely monitor --Sepsis; received antibiotics Continue to monitor off antibiotics ID following --COVID-19 test negative; 10/08/2020 --C. difficile colitis test; positive; 10/16/2020 --Acute metabolic encephalopathy --Acute kidney injury; vasomotor nephropathy Resolved, renal function within normal limits, closely monitor --Shock; monitor of pressors Blood pressures reasonable level --DIC; sepsis, septic shock, resolved --History of preeclampsia; / hemorrhage Status post hysterectomy --History of C. difficile colitis; completed oral vancomycin --DVT/SVT and right upper extremity Very poor prognosis, Consults recommendations noted and appreciated We will closely monitor the patient and adjust management as needed Plan of care reviewed with the patient's nurse. Waiting for intermediate facility placement Subjective Date of service: 04/11/21 Principal diagnosis: Eclampsia/HELLP Syndrome, ADOLPH, DIC; s/p , s/p supracervical hyst Interval history: 30 y/o female patient with Eclampsia/help syndrome, s/p emergent section with DIC, hemorrhage, supracervical abdominal hysterectomy, acute respiratory failure , tracheostomy on T-piece with morbid obesity, s/p cardiac arrest 12/08/2019 status post CPR per ACLS, acute hypoxic brain injury Acute kidney injury improved, severe shock requiring pressors, DIC septic shock improved, history of C. difficile colitis on vancomycin. Tracheostomy on T-piece, continues to require 5 L of oxygen. Brief history; 30 year old -Mong[place] female CHE 10/25/20 at 36w5d who presents with seizures in triage on 10/02/20. Pt was not able to provide history but per pt's , she presented to the hospital to return a 24 hour urine specimen for analysis. She then suddenly reported that she did not feel good. She was taken to labor and delivery and shortly after arrival, she began seizing. During this time, a code met was called because the patient became hypoxic. She was then noted to be without a pulse. Chest compressions were started immediately, and the patient was emergently taken to the operating room for delivery of the fetus. Off note, This patient has had care at [facility] with comanagement by [facility] since 11 wks complicated by ADHD, morbid obesity, generalized anxiety disorder, panic attacks, chronic narcotic use, fibromyalgia, GERD, Irritable Bowel Syndrome, Migraines, h/o endometrial ablation and ovarian vein embolization, genital herpes, insomnia, LGA fetus, nausea and vomiting, polyhydramnios, quad screen positive for Down's Syndrome, and previous x 3. She is GBS negative. , Patient tracheostomy on ventilatory support, unable to wean, continue supportive care poor prognosis 11:30: Pt brought to L&D triage for evaluation of possible labor. Pt accompanied by her spouse. Pt spouse poor historian; unable to obtain history- allergies at this time. Pt taken from registration to triage area via . Pt unresponsive, actively seizing with snorous respirations. car dryer, Kassy, called and requ esting assistance. 11:35: Multiple staff at bedside. Pt 02 sat 67% on nonrebreather, unable to read BP . Yifan Theodore CRNA, at bedside for intubation and assistance with IV insertion. INT attempt by multiple RNs unsuccessful at this time. 11:42: Pt being bagged by KORIN, 02% 79%. No pulse palpated, compressions on at this time; bharati young called and Dr. Newberry preparing OR for emergent c/s. 11:44: Continued compressions on stretcher while transporting pt to OR 1. Pt being bagged with jaw thrust manuever in place by KORIN Stringer student. 11:45: Arrival to OR 1. Dr. Newberry and Dr. Portillo present for emergent c/s. Code team arrived for continued care. patient revived and c/s done Patient has been bleeding from C/s site followed by supracervical hysterectomy for severe bleeding, Patient transfused multiple units of PRBC, Patient in DIC. Patient transferred to the ICU Hospital course; 10/03. Patient seen and examined at bedside this morning. Patient is nonresponsive and mechanically ventilated. On pressors. Labs reviewed-has leukocytosis, anemia, thrombocytopenia, ADOLPH and lactic acidosis. Started on IV antibiotics to cover possible sepsis secondary to DIC. Hematology oncology recommendations appreciated-needs additional cryoprecipitate and FFP. Monitor D-dimer, fibrinogen and frequent labs. Nephrology consulted for lactic acidosis and ADOLPH. 10/04. Remains mechanically ventilated. [place] antibiotics. Labs shows improved acidosis - lactic acid 3.5. Hb drop noted. Getting transfused 2 units PRBCs. Platelet count is ~40k. Continue to monitor labs closely. Critical care team on board. 10/05; xray reviewed, concerning for multifocal infilrate, likely underlying Pneumonia, will add ID consult to assist with management of this critically ill patient, start tube feed, closely monitor renal system 10/06: Resumed care, remains on mechanical ventilation. No active bleeding, H&H stable. Continue to monitor CBC and BMP. Continue IV antibiotic for underlying pneumonia. Follow critical care and ID recommendation. 10/07: Remains on mechanical ventilation. No active bleeding, H&H stable. Critical care following, wean off ventilation as tolerated. 10/08: Patient had another cardiac arrest last night. Remains on mechanical ventilation, update family. Continue supportive care -poor prognosis 10/09: Called patient mother and discussed about patient care and management. Answered all question to best of my knowledge and family satisfaction. Patient remains on mechanical ventilation, cardiac arrest x2 so far. Critically sick, poor prognosis 10/10: remains on mechanical ventilation. h/h stable, no active bleeding. monitor CBC/BMP 10/11: WBC trended up with diarrhea, started on vancomycin po. remains on MV, off pressor, tolerating TF 10/12: remains on MV, off pressor, tolerating TF. called family for update but unable to reach, could not leave message as it was full. cont supportive care, wean off vent as tolerated. 10/13/2020; patient is on mechanical ventilation, tolerating tube feeding. Patient has labored breathing. Neuro was consulted and recommend MRI. Patient is on Precedex. Rectal tube in place. 10/14/2020; patient is on mechanical ventilation, Precedex. Patient had fever and blood culture ordered. Patient is on IV vancomycin per ID recommendation. Neuro consulted and recommend MRI. Continue to monitor. Prognosis is guarded. 10/15/2020; patient is on mechanical ventilation, Precedex. Patient had fever and blood culture ordered. Patient is on IV vancomycin per ID recommendation. Neuro consulted and recommend MRI. Continue to monitor. Prognosis is guarded. 10/17: Remains with C.DIFF and Bactermia, Poor prognosis. No purposeful movement. MRI and EEG discussed with Intensvisit, Continue aggressive BP control. 10/18: Blood pressure better controlled MRI done 10/15 shows mild improvement in edema. We will continue to monitor mother was at bedside yesterday. Nursing documentation trach and PEG discussed with the mother including goals of care. She is still in denial about the gravity of her daughters her condition which is understandable considering her age. Continue aggressive management at this time. Await for bacteremia to clear by ID before placing PICC line. 10/19: Patient for possible PEG and Trach, ID following, repeat cultures remain negative. Poor prognosis 10/20: Pt noted to DVT and SVT in the RUE, Vascular consult and will also obtain Hematology for possible considering changing in Anticoagulation. CONTINUE TO MONITOR H/H and PLT. Family updated by Intensivit. Heparin gtt started. Will check CBC and BMP 10/21: Continue supporive care, Diarrhea now resolving, But still with persistent Fever, May need repeat CT/AP per ID, still with profused Encephalopathy 10/22: Continue supportive care, weaning, awaiting repeat Imaging. FOLLOW Fever curve. Enoxparin restarted 10/23: Continue supportive care, wean as tolerated. 10/24; Started on CPAP trial, discussed with pulmonary, still with diarrhea. 10/25: Patients seen and examined, no clinical changes, still with diarrhea. ?meaningful recovery. 10/26: Clinically unchanged, continue CPAP trial, Will discuss with Neurology about re-evaluation, ?Need for repeat CT head. ?PRESS considering initial elevated BP, now stable. 10/27; tracheostomy on vent, weaning trials, vital signs noted, poor prognosis 10/28; unable to wean, tracheostomy on vent. Sepsis. Continue current management. Consults and recommendations noted and appreciated 10/30/2020;Patient on T-piece 5 L of oxygen not in acute distress, noncommu nicative 11/02/2020; patient on T-piece 5 L of oxygen 11/03/2020; patient's fever slightly improved low-grade, continue current management, remains on T-piece with 5 L of oxygen 11/04/2020; T-max last 24 hours 100.3 F, new cultures negative to date, monitor off antibiotics Patient is off Levophed, blood pressures reasonable level, tracheostomy on T- piece 3 to 5 L nasal cannula oxygen 11/05/2020; tracheostomy on T-piece patient remains on 5 L of nasal cannula oxygen, unresponsive severe hypoxic brain injury I called patient's mother Ms. Pamela Bassett as well as patient's spouse Mr. Danilo Dimas at [phone] unable to reach them Left voicemail on Ms. Pamela Bassettz phone and encouraged him to call back 11/06/2020; I tried to call again today Ms. Pamela Bassett to discuss patient's condition and treatment plan and update consultants recommendations and patient's prognosis., unable to reach her 11/07/20 Will try LTAC/Hospice 11/08/20 Same condition 11/09/2020 Same condition 11/10/2020; family conference was held by case management yesterday 11/09/2020, family decided and agreed for SNF placement 11/11/2020; patient seen and examined, clinically no change tracheostomy on 5 L of nasal cannula oxygen, hemodynamically and clinically stable for discharge To LTAC versus SNF, DC planning per case management 11/12/2020; clinically no change, continue current management, DC planning per case management possible SNF placement 11/13/2020; patient is receiving herpes flareup treatment per ID 11/14/2020; clinically no change, awaiting SNF placement 11/15/2020; clinically no change, tracheostomy on T-piece on 5 L oxygen, awaiting placement 11/16/2020; patient awaiting placement 11/18/2020; abdominal CT scan negative for insulinoma or pancreatic tumor ,clinically no change Awaiting SNF placement 11/19/2020; remains on 4 L of oxygen tracheostomy via T-piece, awaiting SNF placement 11/20/2020 Awaiting SNF placement 11/21/2020 Waiting for SNF placement 11/22/2020 Waiting for placement 11/23/2020 Waiting for placement 11/24/2020 through 12/24/2020 Patient waiting for placement 11/27/2020; patient remains hypoglycemic on D10 W IV fluids, CT abdomen negative for insulinoma Remains stable awaiting SNF placement, tracheostomy on 5 L oxygen via T-piece 11/28/2020; awaiting SNF placement 11/29/2020; patient remains unresponsive, tracheostomy on T-piece, on 4 to 5 L of oxygen Wean as tolerated, DC planning per case management possible SNF placement 11/30/2020; awaiting SNF placement 12/02/2020; awaiting placement, stable for discharge 12/03/2020; clinically no change, awaiting placement, tracheostomy on T-piece, anoxic brain injury 12/04/2020 Patient has anoxic encephalopathy with anoxic brain brain injury Awaiting placement 12/05/2020; anoxic brain injury, awaiting placement. 12/06/20; anoxic brain injury. Awaiting placement. 12/07/2020; anoxic brain injury, awaiting placement. 12/09/2020; anoxic brain injury, awaiting placement. 12/10/2020; patient had episodes of fever overnight. CBC, BMP, blood culture, UA and chest x-ray ordered, will follow and manage accordingly. Urinalysis is suggestive of UTI and I put the patient on ceftriaxone, order urine culture. Chest x-ray is normal. 12/11/2020; patient is on ceftriaxone day 2 for UTI. We will continue to follow urine culture. 12/12/2020. Day #3 of Rocephin for UTI. We will continue for 2 more days while she is here. Present UTI. 12/13/2020. Day #4 of Rocephin for UTI. Patient remains on 50% with tracheostomy. Remains unresponsive with evidence of anoxic encephalopathy unable to make needs known. 12/14/2020. Day #5 of Rocephin for UTI completed today. Remains encephalopathic unable to make needs known. Remains on 50% unable to decrease oxygen via tracheostomy. Overall prognosis remains extremely poor. 3: Continue to monitor. Stop and monitor antibiotics at this time. Continue to wean oxygen as tolerated. Wean oxygen as tolerated. Case management working on placement. 12/16: Continue supportive care aspiration precautions. Awaiting placement discussion. Monitor fever curve. Prognosis remains poor no evidence of neurological recovery as of today 12/17: Continue supportive care, check labs and chest xray. Still monitor off antibiotics. Monitor Sodium level 12/18: Patient remains with intermittent low grade fever, reviewed EEG from September again, consistent for Ischemic Hypoxic Encephalopathy, patient with decorticating posturing type presentation. Will discuss with industrial controller to optimize diet so we can discontinue D5. CXR with no abnormality. Discussed extensively with the nursing staff at bedside CXR IMPRESSION: 1. No acute findings. 12/19: No clinical change 12/20: No clinical change, now off abx, monitor, discussed her medications with our pharmacist I believe that her posture and rigidity is likely from underlying anoxic encephalopathy. Continue to monitor and await placement decision. Continue aggressive suctioning. Plan discussed in detail with the nursing staff 12/21: Continue supportive care. Will give 500 cc bolus of fluid today to replace insensible losses. Tachycardia appears to be improving. Blood pressure precludes adjusting cardiac meds. Still awaiting placement from case management. Plan discussed in detail with the nursing staff 12/22. Continue support supportive care. Tracheostomy and PEG in place. Remains nonresponsive. Awaiting placement. 12/23. Continue support supportive care. Tracheostomy and PEG in place. Remains nonresponsive. Awaiting placement. Remains tachycardic. Decrease dose of lasix. Will try low dose metoprolol. Monitor BP closely 12/24. Continue support supportive care. Tracheostomy and PEG in place. Remains nonresponsive. Awaiting placement. Heart rate slightly better. Continue to monitor BP closely 12/25. Continue support supportive care. Tracheostomy and PEG in place. Remains nonresponsive. Awaiting placement. 12/26. Continue support supportive care. Tracheostomy and PEG in place. Remains nonresponsive. Awaiting placement 12/27. Continue support supportive care. Tracheostomy and PEG in place. Remains nonresponsive. Awaiting placement 12/28. Had fever yesterday. Blood culture drawn. UA - UTI - started on antibiotics. Now tracheal aspirate is growing GN rods. 12/29: Continue IV antibiotics, continue supportive care. Since admission patient has shown minimal or no chance of neurological recovery. Need 24/7 assistance. Currently on trach and PEG, nonverbal. Waiting on SNF placement. Discussed with clinical case manager today. 12/30: Continue IV antibiotics for UTI, continue supportive care. Pending placement 12/31: continue supportive care. continue supportive care. Pending placement 01/01: continue supportive care. Pending placement. cont Iv abx for UTI till 01/04 01/02: Continue supportive care, pending placement. Sodium level slightly elevated, will start hypotonic fluid. Continue antibiotics till 01/04 01/03; cont hypotonic fluid, increase free water with TF for hypernatremia, follow BMP. cont supportive care. pending placement. cont cefepime. recx blood 01/04: resolved hyponatremia, cont supportive care, pending placement. Last day of supplement today. 01/05: Continue supportive care, pending placement. Monitor H&H and fever curve off antibiotic. 01/06; monitor off abx, suction as needed, Continue supportive care, pending placement. 01/07: Discharge pending on placement, vitals stable. Continue supportive care 01/08: Discharge pending on placement, vitals stable. Continue supportive care. stop lasix, increase metoprolol to 25mg BID for ST. 01/09 patient resting with eyes closed. Opens eyes to tactile stimulus, has a blink reflex, does not follow simple commands, has a T-collar / G-tube Lab results reviewed, low-grade fever, 01/10 Eyes open, does not follow simple commands, no acute events overnight 01/11 no acute events overnight, Waiting for placement 01/12 No acute events overnight. Patient awaiting for placement 01/13. No new issues. Awaiting placement 01/14. No new issues. Awaiting placement. 01/15. No new issues. Awaiting placement. 01/16. No new issues. Patient remain stable. Awaiting placement. Check ma intenance labs. 01/17. Routine maintenance labs were ordered and are still pending. Await placement. 01/18. Patient with low-grade fever past 24-48 hrs. WBC within normal limits. Check chest x-ray, urinalysis and consider blood cultures. Continue tracheostomy care, secretion control and airway management. Patient currently with PEG and tube feedings at 60 cc an hour. Nutritional support and aspiration precautions. 01/19. Temperature 100.7 overnight. Continue to monitor closely. Continue tracheostomy care, secretion control and airway management. Patient currently with PEG and tube feedings at 60 cc an hour. Nutritional support and aspiration precautions. 01/20. Continue to monitor closely. Continue tracheostomy care, secretion control and airway management. Patient currently with PEG and tube feedings at 60 cc an hour. Nutritional support and aspiration precautions. 01/21. Afebrile overnight. Continue to monitor closely. Continue tracheostomy care, secretion control and airway management. Patient currently with PEG and tube feedings at 60 cc an hour. Nutritional support and aspiration precautions. 01/22. Continue to monitor closely. Continue tracheostomy care, secretion control and airway management. Patient currently with PEG and tube feedings at 60 cc an hour. Nutritional support and aspiration precautions. 01/23. Continue tracheostomy care, secretion control and airway management. Patient currently with PEG and tube feedings at 60 cc an hour. Nutritional support and aspiration precautions. Will get routine labs tomorrow. 01/24. Labs reviewed. No abnormalities. Continue tracheostomy care, secretion control and airway management. Patient currently with PEG and tube feedings at 60 cc an hour. Nutritional support and aspiration precautions. 01/25. Temp 100.6. More sleepy today. Will get chest xray, blood culture, urinalysis, sputum cultures. Will start on empirical abx. 01/26: Vitals noted, slightly tachycardic. Follow culture work-up, continue supportive care. 01/27: Spiking low-grade temp, negative UA, sputum culture and recent blood cultures also negative. Continue to monitor off antibiotics. Continue supportive care. Pending placement. 01/28: cont to spike low grade temp, negative UA, sputum culture and recent blood cultures also negative. Continue to monitor off antibiotics. will order fpr sinus xry. Continue supportive care. Pending placement. 01/29: Continue to follow clinically, intermittently spiking low-grade temp, all recent culture work is negative, negative UA, normal respiratory jaylan 1 tracheal aspirate. Vitals noted and currently stable. Pending placement 01/30: Clinically unchanged, continue to monitor vitals, continue supportive cares. Pending placement. Discussed plan of care with RN at the bedside. 01/31 - TODATE: cont supportive care, pending placement. monitor vitals carefully. Discussed with family at the bedside. 02/06. Patient afebrile today. Continue trach care. Secretions stable today. Culture data negative so far. Awaiting placement. 02/07. Awaiting placement awaiting family member to evaluate papers. Continue trach care secretions stable. Pending placement 02/09: Intermittent fever, ?drug related, will check cxr and also labs. No new complaints. 02/10: Patient's trach dislodged today. Nevertheless respiratory status is intact attempt to reinsert was unsuccessful will monitor discussed with nursing staff to pay close attention to the patient. Considering that this was not a planned decannulation I will start the patient on continuous pulse ox until full evaluation was done by pulmonary. 02/13/2021 Vital signs stable Unresponsive secondary to anoxic encephalopathy Awaiting placement 02/14/2021 Awaiting placement 02/15/2021 Anoxic encephalopathy Awaiting placement 02/16/2021 Anoxic encephalopathy Awaiting placement 02/17/2021 Anoxic encephalopathy awaiting placement 02/18/21 to 03/15/21 awaiting placement 03/16/2021; Awaiting placement. Patient is on PEG tube feeding. Saturating well on room air. Patient is mildly tachycardic. Pending placement. 03/17/2021; Awaiting placement. Patient is on PEG tube feeding. Saturating well on room air. Patient is mildly tachycardic. Pending placement. 03/18/2021; awaiting placement. 03/19/2021; awaiting placement. 03/20/2021; awaiting placement. 03/21/21; awaiting placement. 03/22/2021; Awaiting placement. Patient is on PEG tube feeding. Saturating well on room air. Patient is mildly tachycardic. Pending placement. 03/23/2021; multiple social issues, awaiting LTAC placement 03/24/2021; pending placement. Clinically no change, I discussed with patient's mother extensively, she had numerous questions answered all of them She requested a repeat CT head as she noticed significant change in her daughters level of consciousness. Will check CT head without contrast 03/25/2021; I discussed with patient's mother extensively yesterday 03/24/2021, she requested a repeat CT scan as she feels that patient is responding f/u CT head without contrast 03/24/2021; no acute abnormalities, pronounced diffuse cerebral atrophy. 03/26/2021; awaiting placement, multiple social issues, I called and discussed CT head findings with patient's mother Ms. Santiago She verbalized understanding. Disposition; pending placement 03/30/2021 I resumed service today; Clinically no change, awaiting placement, multiple social issues 03/31/2021; multiple social issues, awaiting placement 04/01/2021; clinically no change, social issues, awaiting placement 04/02/2021; patient response to some sound by moving her head, not purposeful Did not respond to communication, awaiting placement 04/03/2021; pending placement social issues, 04/04/2021; clinically no change, awaiting placement 04/05/2021; awaiting placement, clinically stable 04/06/2021; clinically no change, patient is stable Awaiting placement, multiple social issues 04/07/2021; awaiting placement social issues. 04/09/2021; patient saturates well on room air PEG tube/PEG feeds, hemodynamically and clinically stable Stable for discharge home with home health versus placement 04/10/21 Awaiting placement 04/11/21 Aawaiting placement Objective - Exam Narrative Exam: Patient with tracheostomy - Constitutional Vitals: Vital Signs - 12hr 04/11/21 21:48 Respiratory 18 Rate General appearance: Present: no acute distress, well-nourished - EENT Eyes: PERRL, EOM intact ENT: hearing intact, clear oral mucosa Ears: bilateral: normal - Neck Neck: supple, normal ROM - Respiratory Respiratory effort: normal Respiratory: bilateral: CTA - Breasts Breasts: normal - Cardiovascular Heart rate: 78 Rhythm: regular Heart Sounds: Present: S1 & S2. Absent: gallop, rub Extremities: pulses intact, No edema, normal color, Full ROM - Gastrointestinal General gastrointestinal: Present: soft, non-tender, non-distended, normal bowel sounds Rectal Exam: deferred - Genitourinary Female genitourinary: normal - Integumentary Integumentary: clear, warm, dry - Musculoskeletal Musculoskeletal: generalized weakness - Neurologic Neurologic: other (Unresponsi) - Allied health notes Allied health notes reviewed: nursing, case management - Labs CBC & Chem 7: 03/16/21 04:42 03/16/21 04:42 HEART Score - HEART Score Age: < 45 Risk factors: 1-2 risk factors - Critical Actions Critical Actions: >7 pts:50-65% risk of adverse cardiac event. Early invasive measures
[2021-04-12] MEDS: ENOXAPARIN 40 MG/0.4 ML INJ SUB-Q SCH (09:06)
[2021-04-12] MEDS: METOPROLOL TARTRATE 25 MG TAB PO SCH ×2 (09:06→23:46)
[2021-04-12] MEDS: FAMOTIDINE 20 MG TAB PO SCH ×2 (09:06→23:46)
--- NOTE | 2021-04-12 18:27 | Progress Note ---
Assessment and Plan Assessment and Plan 30 y/o female patient with Eclampsia/help syndrome, s/p emergent section with DIC, hemorrhage, supracervical abdominal hysterectomy, acute respiratory failure , tracheostomy on T-piece with morbid obesity, s/p cardiac arrest 12/08/2019 status post CPR per ACLS, acute hypoxic brain injury Acute kidney injury improved, severe shock requiring pressors, DIC septic shock improved, history of C. difficile colitis completed treatment with vancomycin. Tracheostomy on T-piece, continues to require 5 L of oxygen. Herpetic flareup, ID started treatment with antibiotics, patient is waiting for SNF placement DC planning per case management Assessment and plan: --Cardiac arrest; 10/07/2020 ,status post CPR --Acute hypoxic brain injury; Supportive care, closely monitor --Acute hypoxic respiratory failure: Tracheostomy on T-piece , today on 4.5 L oxygen, saturating 100% Supportive care, Pulmonary critical following COVID-19 negative C. difficile positive; Patient on contact isolation Completed treatment --Afebrile: Blood, urine, tracheal aspirate cultures New cultures negative to date Monitor off antibiotics Closely monitor --Sepsis; received antibiotics Continue to monitor off antibiotics ID following --COVID-19 test negative; 10/08/2020 --C. difficile colitis test; positive; 10/16/2020 --Acute metabolic encephalopathy --Acute kidney injury; vasomotor nephropathy Resolved, renal function within normal limits, closely monitor --Shock; monitor of pressors Blood pressures reasonable level --DIC; sepsis, septic shock, resolved --History of preeclampsia; / hemorrhage Status post hysterectomy --History of C. difficile colitis; completed oral vancomycin --DVT/SVT and right upper extremity Very poor prognosis, Consults recommendations noted and appreciated We will closely monitor the patient and adjust management as needed Plan of care reviewed with the patient's nurse. Waiting for [facility] facility placement Subjective Date of service: 04/12/21 Principal diagnosis: Eclampsia/HELLP Syndrome, ADOLPH, DIC; s/p , s/p supracervical hyst Interval history: 30 y/o female patient with Eclampsia/help syndrome, s/p emergent section with DIC, hemorrhage, supracervical abdominal hysterectomy, acute respiratory failure , tracheostomy on T-piece with morbid obesity, s/p cardiac arrest 12/08/2019 status post CPR per ACLS, acute hypoxic brain injury Acute kidney injury improved, severe shock requiring pressors, DIC septic shock improved, history of C. difficile colitis on vancomycin. Tracheostomy on T-piece, continues to require 5 L of oxygen. Brief history; 30 year old -[place] female CHE 10/25/20 at 36w5d who presents with seizures in triage on 10/02/20. Pt was not able to provide history but per pt's , she presented to the hospital to return a 24 hour urine specimen for analysis. She then suddenly reported that she did not feel good. She was taken to labor and delivery and shortly after arrival, she began seizing. During this time, a code met was called because the patient became hypoxic. She was then noted to be without a pulse. Chest compressions were started immediately, and the patient was emergently taken to the operating room for delivery of the fetus. Off note, This patient has had care at [facility] with comanagement by [facility] since 11 wks complicated by ADHD, morbid obesity, generalized anxiety disorder, panic attacks, chronic narcotic use, fibromyalgia, GERD, Irritable Bowel Syndrome, Migraines, h/o endometrial ablation and ovarian vein embolization, genital herpes, insomnia, LGA fetus, nausea and vomiting, polyhydramnios, quad screen positive for Down's Syndrome, and previous x 3. She is GBS negative. , Patient tracheostomy on ventilatory support, unable to wean, continue supportive care poor prognosis 11:30: Pt brought to L&D triage for evaluation of possible labor. Pt accompanied by her spouse. Pt spouse poor historian; unable to obtain history- allergies at this time. Pt taken from registration to triage area via WC. Pt unresponsive, actively seizing with snorous respirations. driver license agent, Kassy, called and requesting assistance. 11:35: Multiple staff at bedside. Pt 02 sat 67% on nonrebreather, unable to read BP . Yifan Theodore CRNA, at bedside for intubation and assistance with IV insertion. INT attempt by multiple RNs unsuccessful at this time. 11:42: Pt being bagged by LOG CHIPPER, 02% 79%. No pulse palpated, compressions on at this time; bharati young called and Dr. Newberry preparing OR for emergent c/s. 11:44: Continued compressions on stretcher while transporting pt to OR 1. Pt being bagged with jaw thrust manuever in place by KORIN Stringer student. 11:45: Arrival to OR 1. Dr. Newberry and Dr. Portillo present for emergent c/s. Code team arrived for continued care. patient revived and c/s done Patient has been bleeding from C/s site followed by supracervical hysterectomy for severe bleeding, Patient transfused multiple units of PRBC, Patient in DIC. Patient transferred to the ICU Hospital course; 10/03. Patient seen and examined at bedside this morning. Patient is nonresponsive and mechanically ventilated. On pressors. Labs reviewed-has leukocytosis, anemia, thrombocytopenia, ADOLPH and lactic acidosis. Started on IV antibiotics to cover possible sepsis secondary to DIC. Hematology oncology recommendations appreciated-needs additional cryoprecipitate and FFP. Monitor D-dimer, fibrinogen and frequent labs. Nephrology consulted for lactic acidosis and ADOLPH. 10/04. Remains mechanically ventilated. Kevin antibiotics. Labs shows improved acidosis - lactic acid 3.5. Hb drop noted. Getting transfused 2 units PRBCs. Platelet count is ~40k. Continue to monitor labs closely. Critical care team on board. 10/05; xray reviewed, concerning for multifocal infilrate, likely underlying Pneumonia, will add ID consult to assist with management of this critically ill patient, start tube feed, closely monitor renal system 10/06: Resumed care, remains on mechanical ventilation. No active bleeding, H&H stable. Continue to monitor CBC and BMP. Continue IV antibiotic for underlying pneumonia. Follow critical care and ID recommendation. 10/07: Remains on mechanical ventilation. No active bleeding, H&H stable. Critical care following, wean off ventilation as tolerated. 10/08: Patient had another cardiac arrest last night. Remains on mechanical ventilation, update family. Continue supportive care -poor prognosis 10/09: Called patient mother and discussed about patient care and management. Answered all question to best of my knowledge and family satisfaction. Patient remains on mechanical ventilation, cardiac arrest x2 so far. Critically sick, poor prognosis 10/10: remains on mechanical ventilation. h/h stable, no active bleeding. monitor CBC/BMP 10/11: WBC trended up with diarrhea, started on vancomycin po. remains on MV, off pressor, tolerating TF 10/12: remains on MV, off pressor, tolerating TF. called family for update but unable to reach, could not leave message as it was full. cont supportive care, wean off vent as tolerated. 10/13/2020; patient is on mechanical ventilation, tolerating tube feeding. Patient has labored breathing. Neuro was consulted and recommend MRI. Patient is on Precedex. Rectal tube in place. 10/14/2020; patient is on mechanical ventilation, Precedex. Patient had fever and blood culture ordered. Patient is on IV vancomycin per ID recommendation. Neuro consulted and recommend MRI. Continue to monitor. Prognosis is guarded. 10/15/2020; patient is on mechanical ventilation, Precedex. Patient had fever and blood culture ordered. Patient is on IV vancomycin per ID recommendation. Neuro consulted and recommend MRI. Continue to monitor. Prognosis is guarded. 10/17: Remains with C.DIFF and Bactermia, Poor prognosis. No purposeful movement. MRI and EEG discussed with Intensvisit, Continue aggressive BP control. 10/18: Blood pressure better controlled MRI done 10/15 shows mild improvement in edema. We will continue to monitor mother was at bedside yesterday. Nursing documentation trach and PEG discussed with the mother including goals of care. She is still in denial about the gravity of her daughters her condition which is understandable considering her age. Continue aggressive management at this time. Await for bacteremia to clear by ID before placing PICC line. 10/19: Patient for possible PEG and Trach, ID following, repeat cultures remain negative. Poor prognosis 10/20: Pt noted to DVT and SVT in the RUE, Vascular consult and will also obtain Hematology for possible considering changing in Anticoagulation. CONTINUE TO MONITOR H/H and PLT. Family updated by [employer]. Heparin gtt started. Will check CBC and BMP 10/21: Continue supporive care, Diarrhea now resolving, But still with persistent Fever, May need repeat CT/AP per ID, still with profused Encephalopathy 10/22: Continue supportive care, weaning, awaiting repeat Imaging. FOLLOW Fever curve. Enoxparin restarted 10/23: Continue supportive care, wean as tolerated. 10/24; Started on CPAP trial, discussed with pulmonary, still with diarrhea. 10/25: Patients seen and examined, no clinical changes, still with diarrhea. ?me aningful recovery. 10/26: Clinically unchanged, continue CPAP trial, Will discuss with Neurology ab out re-evaluation, ?Need for repeat CT head. ?PRESS considering initial elevated BP, now stable. 10/27; tracheostomy on vent, weaning trials, vital signs noted, poor prognosis 10/28; unable to wean, tracheostomy on vent. Sepsis. Continue current management. Consults and recommendations noted and appreciated 10/30/2020;Patient on T-piece 5 L of oxygen not in acute distress, noncommunicative 11/02/2020; patient on T-piece 5 L of oxygen 11/03/2020; patient's fever slightly improved low-grade, continue current management, remains on T-piece with 5 L of oxygen 11/04/2020; T-max last 24 hours 100.3 F, new cultures negative to date, monitor off antibiotics Patient is off Levophed, blood pressures reasonable level, tracheostomy on T- piece 3 to 5 L nasal cannula oxygen 11/05/2020; tracheostomy on T-piece patient remains on 5 L of nasal cannula oxygen, unresponsive severe hypoxic brain injury I called patient's mother Ms. Pamela Bassett as well as patient's spouse Mr. Danilo Dimas at [phone] unable to reach them Left voicemail on Ms. Pamela Bassettz phone and encouraged him to call back 11/06/2020; I tried to call again today Ms. Pamela Bassett to discuss patient's condition and treatment plan and update consultants recommendations and patient's prognosis., unable to reach her 11/07/20 Will try LTAC/Hospice 11/08/20 Same condition 11/09/2020 Same condition 11/10/2020; family conference was held by case management yesterday 11/09/2020, family decided and agreed for SNF placement 11/11/2020; patient seen and examined, clinically no change tracheostomy on 5 L of nasal cannula oxygen, hemodynamically and clinically stable for discharge To LTAC versus SNF, DC planning per case management 11/12/2020; clinically no change, continue current management, DC planning per case management possible SNF placement 11/13/2020; patient is receiving herpes flareup treatment per ID 11/14/2020; clinically no change, awaiting SNF placement 11/15/2020; clinically no change, tracheostomy on T-piece on 5 L oxygen, awaiting placement 11/16/2020; patient awaiting placement 11/18/2020; abdominal CT scan negative for insulinoma or pancreatic tumor ,clinically no change Awaiting SNF placement 11/19/2020; remains on 4 L of oxygen tracheostomy via T-piece, awaiting SNF place ment 11/20/2020 Awaiting SNF placement 11/21/2020 Waiting for SNF placement 11/22/2020 Waiting for placement 11/23/2020 Waiting for placement 11/24/2020 through 12/24/2020 Patient waiting for placement 11/27/2020; patient remains hypoglycemic on D10 W IV fluids, CT abdomen negative for insulinoma Remains stable awaiting SNF placement, tracheostomy on 5 L oxygen via T-piece 11/28/2020; awaiting SNF placement 11/29/2020; patient remains unresponsive, tracheostomy on T-piece, on 4 to 5 L of oxygen Wean as tolerated, DC planning per case management possible SNF placement 11/30/2020; awaiting SNF placement 12/02/2020; awaiting placement, stable for discharge 12/03/2020; clinically no change, awaiting placement, tracheostomy on T-piece, anoxic brain injury 12/04/2020 Patient has anoxic encephalopathy with anoxic brain brain injury Awaiting placement 12/05/2020; anoxic brain injury, awaiting placement. 12/06/20; anoxic brain injury. Awaiting placement. 12/07/2020; anoxic brain injury, awaiting placement. 12/09/2020; anoxic brain injury, awaiting placement. 12/10/2020; patient had episodes of fever overnight. CBC, BMP, blood culture, UA and chest x-ray ordered, will follow and manage accordingly. Urinalysis is suggestive of UTI and I put the patient on ceftriaxone, order urine culture. Chest x-ray is normal. 12/11/2020; patient is on ceftriaxone day 2 for UTI. We will continue to follow urine culture. 12/12/2020. Day #3 of Rocephin for UTI. We will continue for 2 more days while she is here. Present UTI. 12/13/2020. Day #4 of Rocephin for UTI. Patient remains on 50% with tracheostomy. Remains unresponsive with evidence of anoxic encephalopathy nikita ble to make needs known. 12/14/2020. Day #5 of Rocephin for UTI completed today. Remains encephalopathic unable to make needs known. Remains on 50% unable to decrease oxygen via tracheostomy. Overall prognosis remains extremely poor. 12/15: Continue to monitor. Stop and monitor antibiotics at this time. Continue to wean oxygen as tolerated. Wean oxygen as tolerated. Case management working on placement. 12/16: Continue supportive care aspiration precautions. Awaiting placement discussion. Monitor fever curve. Prognosis remains poor no evidence of neurological recovery as of today 12/17: Continue supportive care, check labs and chest xray. Still monitor off antibiotics. Monitor Sodium level 12/18: Patient remains with intermittent low grade fever, reviewed EEG from September again, consistent for Ischemic Hypoxic Encephalopathy, patient with decorticating posturing type presentation. Will discuss with drill sharpener operator to optimize diet so we can discontinue D5. CXR with no abnormality. Discussed extensively with the nursing staff at bedside CXR IMPRESSION: 1. No acute findings. 12/19: No clinical change 12/20: No clinical change, now off abx, monitor, discussed her medications with our pharmacist I believe that her posture and rigidity is likely from underlying anoxic encephalopathy. Continue to monitor and await placement decision. Continue aggressive suctioning. Plan discussed in detail with the nursing staff 12/21: Continue supportive care. Will give 500 cc bolus of fluid today to replace insensible losses. Tachycardia appears to be improving. Blood pressure precludes adjusting cardiac meds. Still awaiting placement from case management. Plan discussed in detail with the nursing staff 12/22. Continue support supportive care. Tracheostomy and PEG in place. Remains nonresponsive. Awaiting placement. 12/23. Continue support supportive care. Tracheostomy and PEG in place. Remains nonresponsive. Awaiting placement. Remains tachycardic. Decrease dose of lasix. Will try low dose metoprolol. Monitor BP closely 12/24. Continue support supportive care. Tracheostomy and PEG in place. Remains nonresponsive. Awaiting placement. Heart rate slightly better. Continue to monitor BP closely 12/25. Continue support supportive care. Tracheostomy and PEG in place. Remains nonresponsive. Awaiting placement. 12/26. Continue support supportive care. Tracheostomy and PEG in place. Remains nonresponsive. Awaiting placement 12/27. Continue support supportive care. Tracheostomy and PEG in place. Remains nonresponsive. Awaiting placement 12/28. Had fever yesterday. Blood culture drawn. UA - UTI - started on antibiotics. Now tracheal aspirate is growing GN rods. 12/29: Continue IV antibiotics, continue supportive care. Since admission patient has shown minimal or no chance of neurological recovery. Need / assistance. Currently on trach and PEG, nonverbal. Waiting on SNF placement. Discussed with mental health case manager today. 12/30: Continue IV antibiotics for UTI, continue supportive care. Pending placement 12/31: continue supportive care. continue supportive care. Pending placement 01/01: continue supportive care. Pending placement. cont Iv abx for UTI till 01/04 01/02: Continue supportive care, pending placement. Sodium level slightly francisco vated, will start hypotonic fluid. Continue antibiotics till 01/04 01/03; cont hypotonic fluid, increase free water with TF for hypernatremia, follow BMP. cont supportive care. pending placement. cont cefepime. recx blood 01/04: resolved hyponatremia, cont supportive care, pending placement. Last day of supplement today. 01/05: Continue supportive care, pending placement. Monitor H&H and fever curve off antibiotic. 01/06; monitor off abx, suction as needed, Continue supportive care, pending p lacement. 01/07: Discharge pending on placement, vitals stable. Continue supportive care 01/08: Discharge pending on placement, vitals stable. Continue supportive care. stop lasix, increase metoprolol to 25mg BID for ST. 01/09 patient resting with eyes closed. Opens eyes to tactile stimulus, has a blink reflex, does not follow simple commands, has a T-collar / G-tube Lab results reviewed, low-grade fever, 01/10 Eyes open, does not follow simple commands, no acute events overnight 01/11 no acute events overnight, Waiting for placement 01/12 No acute events overnight. Patient awaiting for placement 01/13. No new issues. Awaiting placement 01/14. No new issues. Awaiting placement. 01/15. No new issues. Awaiting placement. 01/16. No new issues. Patient remain stable. Awaiting placement. Check maintenance labs. 01/17. Routine maintenance labs were ordered and are still pending. Await placement. 01/18. Patient with low-grade fever past 24-48 hrs. WBC within normal limits. Check chest x-ray, urinalysis and consider blood cultures. Continue tracheostomy care, secretion control and airway management. Patient currently with PEG and tube feedings at 60 cc an hour. Nutritional support and aspiration precautions. 01/19. Temperature 100.7 overnight. Continue to monitor closely. Continue tracheostomy care, secretion control and airway management. Patient currently with PEG and tube feedings at 60 cc an hour. Nutritional support and aspiration precautions. 01/20. Continue to monitor closely. Continue tracheostomy care, secretion control and airway management. Patient currently with PEG and tube feedings at 60 cc an hour. Nutritional support and aspiration precautions. 01/21. Afebrile overnight. Continue to monitor closely. Continue tracheostomy care, secretion control and airway management. Patient currently with PEG and tube feedings at 60 cc an hour. Nutritional support and aspiration precautions. 01/22. Continue to monitor closely. Continue tracheostomy care, secretion control and airway management. Patient currently with PEG and tube feedings at 60 cc an hour. Nutritional support and aspiration precautions. 01/23. Continue tracheostomy care, secretion control and airway management. Patient currently with PEG and tube feedings at 60 cc an hour. Nutritional support and aspiration precautions. Will get routine labs tomorrow. 01/24. Labs reviewed. No abnormalities. Continue tracheostomy care, secretion control and airway management. Patient currently with PEG and tube feedings at 60 cc an hour. Nutritional support and aspiration precautions. 01/25. Temp 100.6. More sleepy today. Will get chest xray, blood culture, urinalysis, sputum cultures. Will start on empirical abx. 01/26: Vitals noted, slightly tachycardic. Follow culture work-up, continue supportive care. 01/27: Spiking low-grade temp, negative UA, sputum culture and recent blood cultures also negative. Continue to monitor off antibiotics. Continue supportive care. Pending placement. 01/28: cont to spike low grade temp, negative UA, sputum culture and recent blood cultures also negative. Continue to monitor off antibiotics. will order fpr sinus xry. Continue supportive care. Pending placement. 01/29: Continue to follow clinically, intermittently spiking low-grade temp, all recent culture work is negative, negative UA, normal respiratory jaylan 1 tra cheal aspirate. Vitals noted and currently stable. Pending placement 01/30: Clinically unchanged, continue to monitor vitals, continue supportive cares. Pending placement. Discussed plan of care with RN at the bedside. 01/31 - TODATE: cont supportive care, pending placement. monitor vitals care fully. Discussed with family at the bedside. 02/06. Patient afebrile today. Continue trach care. Secretions stable today. Culture data negative so far. Awaiting placement. 02/07. Awaiting placement awaiting family member to evaluate papers. Continue trach care secretions stable. Pending placement 02/09: Intermittent fever, ?drug related, will check cxr and also labs. No new complaints. 02/10: Patient's trach dislodged today. Nevertheless respiratory status is intact attempt to reinsert was unsuccessful will monitor discussed with nursing staff to pay close attention to the patient. Considering that this was not a planned decannulation I will start the patient on continuous pulse ox until full evaluation was done by pulmonary. 02/13/2021 Vital signs stable Unresponsive secondary to anoxic encephalopathy Awaiting placement 02/14/2021 Awaiting placement 02/15/2021 Anoxic encephalopathy Awaiting placement 02/16/2021 Anoxic encephalopathy Awaiting placement 02/17/2021 Anoxic encephalopathy awaiting placement 02/18/21 to 03/15/21 awaiting placement 03/16/2021; Awaiting placement. Patient is on PEG tube feeding. Saturating well on room air. Patient is mildly tachycardic. Pending placement. 03/17/2021; Awaiting placement. Patient is on PEG tube feeding. Saturating well on room air. Patient is mildly tachycardic. Pending placement. 03/18/2021; awaiting placement. 03/19/2021; awaiting placement. 03/20/2021; awaiting placement. 03/21/21; awaiting placement. 03/22/2021; Awaiting placement. Patient is on PEG tube feeding. Saturating well on room air. Patient is mildly tachycardic. Pending placement. 03/23/2021; multiple social issues, awaiting LTAC placement 03/24/2021; pending placement. Clinically no change, I discussed with patient's mother extensively, she had numerous questions answered all of them She requested a repeat CT head as she noticed significant change in her daughters level of consciousness. Will check CT head without contrast 03/25/2021; I discussed with patient's mother extensively yesterday 03/24/2021, she requested a repeat CT scan as she feels that patient is responding f/u CT head without contrast 03/24/2021; no acute abnormalities, pronounced di ffuse cerebral atrophy. 03/26/2021; awaiting placement, multiple social issues, I called and discussed CT head findings with patient's mother Ms. Santiago She verbalized understanding. Disposition; pending placement 03/30/2021 I resumed service today; Clinically no change, awaiting placement, multiple social issues 03/31/2021; multiple social issues, awaiting placement 04/01/2021; clinically no change, social issues, awaiting placement 04/02/2021; patient response to some sound by moving her head, not purposeful Did not respond to communication, awaiting placement 04/03/2021; pending placement social issues, 04/04/2021; clinically no change, awaiting placement 04/05/2021; awaiting placement, clinically stable 04/06/2021; clinically no change, patient is stable Awaiting placement, multiple social issues 04/07/2021; awaiting placement social issues. 04/09/2021; patient saturates well on room air PEG tube/PEG feeds, hemodynamically and clinically stable Stable for discharge home with home health versus placement 04/10/21 Awaiting placement 04/11/21 Aawaiting placement 04/12/2021 Awaiting placement Objective - Exam Narrative Exam: Patient with tracheostomy - Constitutional Vitals: Vital Signs - 12hr 04/12/21 11:17 Temperature 97.8 F Pulse Rate 89 Respiratory 22 Rate Blood Pressure 127/54 O2 Sat by Pulse 96 Oximetry General appearance: Present: no acute distress, well-nourished - EENT Eyes: PERRL, EOM intact ENT: hearing intact, clear oral mucosa Ears: bilateral: normal - Neck Neck: supple, normal ROM - Respiratory Respiratory effort: normal Respiratory: bilateral: CTA - Breasts Breasts: normal - Cardiovascular Heart rate: 78 Rhythm: regular Heart Sounds: Present: S1 & S2. Absent: gallop, rub Extremities: pulses intact, No edema, normal color, Full ROM - Gastrointestinal General gastrointestinal: Present: soft, non-tender, non-distended, normal bowel sounds - Genitourinary Female genitourinary: normal - Integumentary Integumentary: clear, warm, dry - Musculoskeletal Musculoskeletal: generalized weakness - Neurologic Neurologic: other (Unresponsive secondary to anoxic brain injury) - Psychiatric Psychiatric: other - Allied health notes Allied health notes reviewed: nursing, case management - Labs CBC & Chem 7: 03/16/21 04:42 03/16/21 04:42 HEART Score - HEART Score Age: < 45 Risk factors: 1-2 risk factors - Critical Actions Critical Actions: >7 pts:50-65% risk of adverse cardiac event. Early invasive measures
--- NOTE | 2021-04-13 10:05 | Progress Note ---
Assessment and Plan Assessment and plan: 30 y/o female patient with Eclampsia/help syndrome, s/p emergent section with DIC, hemorrhage, supracervical abdominal hysterectomy, acute respiratory failure , tracheostomy on T-piece with morbid obesity, s/p cardiac arrest 12/08/2019 status post CPR per ACLS, acute hypoxic brain injury Acute kidney injury improved, severe shock requiring pressors, DIC septic shock improved, history of C. difficile colitis completed treatment with vancomycin. Tracheostomy on T-piece, continues to require 5 L of oxygen. Herpetic flareup, ID started treatment with antibiotics, patient is waiting for SNF placement DC planning per case management Assessment and plan: --Cardiac arrest; 10/07/2020 ,status post CPR --Acute hypoxic brain injury; Supportive care, closely monitor --Acute hypoxic respiratory failure: Tracheostomy on T-piece , today on 4.5 L oxygen, saturating 100% Supportive care, Pulmonary critical following COVID-19 negative C. difficile positive; Patient on contact isolation Completed treatment --Afebrile: Blood, urine, tracheal aspirate cultures New cultures negative to date Monitor off antibiotics Closely monitor --Sepsis; received antibiotics Continue to monitor off antibiotics ID following --COVID-19 test negative; 10/08/2020 --C. difficile colitis test; positive; 10/16/2020 --Acute metabolic encephalopathy --Acute kidney injury; vasomotor nephropathy Resolved, renal function within normal limits, closely monitor --Shock; monitor of pressors Blood pressures reasonable level --DIC; sepsis, septic shock, resolved --History of preeclampsia; / hemorrhage Status post hysterectomy --History of C. difficile colitis; completed oral vancomycin --DVT/SVT and right upper extremity Very poor prognosis, Consults recommendations noted and appreciated We will closely monitor the patient and adjust management as needed Plan of care reviewed with the patient's nurse. [facility]ing for [facility] facility placement Mr. Johnson in 85 03/16/2021; Awaiting placement. Patient is on PEG tube feeding. Saturating well on room air. Patient is mildly tachycardic. Pending placement. 03/17/2021; Awaiting placement. Patient is on PEG tube feeding. Saturating well on room air. Patient is mildly tachycardic. Pending placement. 03/18/2021; awaiting placement. 03/19/2021; awaiting placement. 03/20/2021; awaiting placement. 03/21/21; awaiting placement. 03/22/2021; Awaiting placement. Patient is on PEG tube feeding. Saturating well on room air. Patient is mildly tachycardic. Pending placement. 03/23/2021; multiple social issues, awaiting LTAC placement 03/24/2021; pending placement. Clinically no change, I discussed with patient's mother extensively, she had numerous questions answered all of them She requested a repeat CT head as she noticed significant change in her daughters level of consciousness. Will check CT head without contrast 03/25/2021; I discussed with patient's mother extensively yesterday 03/24/2021, she requested a repeat CT scan as she feels that patient is responding f/u CT head without contrast 03/24/2021; no acute abnormalities, pronounced diffuse cerebral atrophy. 03/26/2021; awaiting placement, multiple social issues, I called and discussed CT head findings with patient's mother Ms. Santiago She verbalized understanding. Disposition; pending placement 03/30/2021 I resumed service today; Clinically no change, awaiting placement, multiple social issues 03/31/2021; multiple social issues, awaiting placement 04/01/2021; clinically no change, social issues, awaiting placement 04/02/2021; patient response to some sound by moving her head, not purposeful Did not respond to communication, awaiting placement 04/03/2021; pending placement social issues, 04/04/2021; clinically no change, awaiting placement 04/05/2021; awaiting placement, clinically stable 04/06/2021; clinically no change, patient is stable Awaiting placement, multiple social issues 04/07/2021; awaiting placement social issues. 04/09/2021; patient saturates well on room air PEG tube/PEG feeds, hemodynamically and clinically stable Stable for discharge home with home health versus placement 04/10/21 Awaiting placement 04/11/21 Aawaiting placement 04/12/2021 Awaiting placement 04/13/2021; patient is more alert and awake, noncommunicative Spontaneous opening eyes, vital signs noted, awaiting placement Social issues History Interval history: I have seen and examined the patient at the bedside this morning Patient's chart medications tests and reports reviewed No new overnight events reported by the nursing Patient is more alert and awake, not in acute distress Noncommunicative Vital signs noted Hospitalist Physical - Constitutional Vitals: Temp Pulse Resp BP Pulse Ox 97.8 F 89 18 127/54 96 04/12/21 11:17 04/12/21 11:17 04/12/21 22:20 04/12/21 11:17 04/12/21 11:17 General appearance: Present: no acute distress, well-nourished - EENT Eyes: Present: PERRL, EOM intact - Neck Neck: Present: supple, normal ROM - Respiratory Respiratory effort: normal Respiratory: bilateral: diminished, rhonchi, negative: rales, wheezing - Cardiovascular Rhythm: regular Heart Sounds: Present: S1 & S2 - Extremities Extremities: no ischemia, No edema - Abdominal General gastrointestinal: soft, non-tender, non-distended, normal bowel sounds - Integumentary Integumentary: Present: clear, warm - Psychiatric Psychiatric: appropriate mood/affect, cooperative - Neurologic Neurologic: CNII-XII intact, moves all extremities HEART Score - HEART Score Age: < 45 Risk factors: 1-2 risk factors - Critical Actions Critical Actions: >7 pts:50-65% risk of adverse cardiac event. Early invasive measures Results - Labs CBC & Chem 7: 03/16/21 04:42 03/16/21 04:42 Labs: Laboratory Last Values WBC 9.4 K/mm3 (4.5-11.0) 03/16/21 04:42 RBC 5.06 M/mm3 (3.65-5.03) H 03/16/21 04:42 Hgb 12.2 gm/dl (10.1-14.3) 03/16/21 04:42 Hgb Comment See scanned result 10/04/20 Unknown Hct 37.6 % (30.3-42.9) 03/16/21 04:42 MCV 74 fl (79-97) L 03/16/21 04:42 MCH 24 pg (28-32) L 03/16/21 04:42 MCHC 33 % (30-34) 03/16/21 04:42 RDW 15.8 % (13.2-15.2) H 03/16/21 04:42 Plt Count 311 K/mm3 (140-440) 03/16/21 04:42 Lymph % (Auto) 33.5 % (13.4-35.0) 03/16/21 04:42 [place] % (Auto) 8.1 % (0.0-7.3) H 03/16/21 04:42 Eos % (Auto) 1.7 % (0.0-4.3) 03/16/21 04:42 Baso % (Auto) 0.5 % (0.0-1.8) 03/16/21 04:42 Lymph # (Auto) 3.1 K/mm3 (1.2-5.4) 03/16/21 04:42 [place] # (Auto) 0.8 K/mm3 (0.0-0.8) 03/16/21 04:42 Eos # (Auto) 0.2 K/mm3 (0.0-0.4) 03/16/21 04:42 Baso # (Auto) 0.0 K/mm3 (0.0-0.1) 03/16/21 04:42 Add Manual Diff Complete 02/09/21 10:59 Total Counted 100 02/09/21 10:59 Seg Neutrophils % 56.2 % (40.0-70.0) 03/16/21 04:42 Seg Neuts % (Manual) 58.0 % (40.0-70.0) 02/09/21 10:59 Band Neutrophils % 2.0 % 10/15/20 05:50 Lymphocytes % (Manual) 29.0 % (13.4-35.0) 02/09/21 10:59 Reactive Lymphs % (Man) 1.0 % 10/02/20 12:18 Monocytes % (Manual) 13.0 % (0.0-7.3) H 02/09/21 10:59 Eosinophils % (Manual) 1.0 % (0.0-4.3) 10/29/20 07:56 Myelocytes % 2.0 % 10/02/20 13:05 Metamyelocytes % 1.0 % 10/14/20 04:00 Nucleated RBC % Not Reportable 02/09/21 10:59 Seg Neutrophils # 5.3 K/mm3 (1.8-7.7) 03/16/21 04:42 Seg Neutrophils # Man 3.7 K/mm3 (1.8-7.7) 02/09/21 10:59 Band Neutrophils # 0.0 K/mm3 02/09/21 10:59 Lymphocytes # (Manual) 1.8 K/mm3 (1.2-5.4) 02/09/21 10:59 Abs React Lymphs (Man) 0.0 K/mm3 02/09/21 10:59 Monocytes # (Manual) 0.8 K/mm3 (0.0-0.8) 02/09/21 10:59 Eosinophils # (Manual) 0.0 K/mm3 (0.0-0.4) 02/09/21 10:59 Basophils # (Manual) 0.0 K/mm3 (0.0-0.1) 02/09/21 10:59 Metamyelocytes # 0.0 K/mm3 02/09/21 10:59 Myelocytes # 0.0 K/mm3 02/09/21 10:59 Promyelocytes # 0.0 K/mm3 02/09/21 10:59 Blast Cells # 0.0 K/mm3 02/09/21 10:59 WBC Morphology Not Reportable 02/09/21 10:59 Hypersegmented Neuts Not Reportable 02/09/21 10:59 Hyposegmented Neuts Not Reportable 02/09/21 10:59 Hypogranular Neuts Not Reportable 02/09/21 10:59 Smudge Cells Not Reportable 02/09/21 10:59 Toxic Granulation Not Reportable 02/09/21 10:59 Toxic Vacuolation Not Reportable 02/09/21 10:59 Dohle Bodies Not Reportable 02/09/21 10:59 Pelger-Huet Anomaly Not Reportable 02/09/21 10:59 Ester Rods Not Reportable 02/09/21 10:59 Platelet Estimate Consistent w auto 02/09/21 10:59 Clumped Platelets Not Reportable 02/09/21 10:59 Plt Clumps, EDTA Not Reportable 02/09/21 10:59 Large Platelets Few 02/09/21 10:59 Giant Platelets Not Reportable 02/09/21 10:59 Platelet Satelliting Not Reportable 02/09/21 10:59 Plt Morphology Comment Not Reportable 02/09/21 10:59 RBC Morphology Not Reportable 02/09/21 10:59 Dimorphic RBCs Not Reportable 02/09/21 10:59 Polychromasia Not Reportable 02/09/21 10:59 Hypochromasia 1+ 02/09/21 10:59 Poikilocytosis Not Reportable 02/09/21 10:59 Anisocytosis Not Reportable 02/09/21 10:59 Microcytosis Not Reportable 02/09/21 10:59 Macrocytosis Not Reportable 02/09/21 10:59 Spherocytes Not Reportable 02/09/21 10:59 Pappenheimer Bodies Not Reportable 02/09/21 10:59 Sickle Cells Not Reportable 02/09/21 10:59 Target Cells Not Reportable 02/09/21 10:59 Tear Drop Cells Not Reportable 02/09/21 10:59 Ovalocytes Not Reportable 02/09/21 10:59 Stomatocytes Few 10/14/20 04:00 Helmet Cells Not Reportable 02/09/21 10:59 Burk-Bussey Bodies Not Reportable 02/09/21 10:59 [place] Rings Not Reportable 02/09/21 10:59 Benson Cells Not Reportable 02/09/21 10:59 Bite Cells Not Reportable 02/09/21 10:59 Crenated Cell Not Reportable 02/09/21 10:59 Elliptocytes Not Reportable 02/09/21 10:59 Acanthocytes (Spur) Not Reportable 02/09/21 10:59 Rouleaux Not Reportable 02/09/21 10:59 Hemoglobin C Crystals Not Reportable 02/09/21 10:59 Schistocytes Not Reportable 02/09/21 10:59 Malaria parasites Not Reportable 02/09/21 10:59 Sickle Cell Solubility See scanned result 10/04/20 Unknown Hemoglobin A See scanned result 10/04/20 Unknown Hemoglobin A2 See scanned result 10/04/20 Unknown Hemoglobin A2 Prime See scanned result 10/04/20 Unknown Hemoglobin C See scanned result 10/04/20 Unknown Hemoglobin D See scanned result 10/04/20 Unknown Hemoglobin E See scanned result 10/04/20 Unknown Hgb F Diffential Stain See scanned result 10/04/20 Unknown Hemoglobin F Quant See scanned result 10/04/20 Unknown Hemoglobin G See scanned result 10/04/20 Unknown Hemoglobin S See scanned result 10/04/20 Unknown Hemoglobin O-Metaline See scanned result 10/04/20 Unknown Hemoglobin [place] See scanned result 10/04/20 Unknown Hemoglobin Analilia See scanned result 10/04/20 Unknown Variant Hemoglobin See scanned result 10/04/20 Unknown Abnorm Hgb IEF Confirm See scanned result 10/04/20 Unknown Hemoglobin Interpret See scanned result 10/04/20 Unknown Hemoglobinopathy Note See scanned result 10/04/20 Unknown Sharad Bodies Not Reportable 02/09/21 10:59 Hem Pathologist Commnt No 02/09/21 10:59 PT 13.6 Sec. (12.2-14.9) 10/21/20 13:54 INR 1.06 (0.87-1.13) 10/21/20 13:54 APTT 31.6 Sec. (24.2-36.6) 10/03/20 00:40 Fibrinogen 336 mg/dl (211-480) 10/04/20 10:00 D-Dimer 1974.47 ng/mlDDU (0-234) H 11/11/20 13:50 ABG pH 7.459 pH Units (7.350-7.450) H 10/26/20 10:30 POC ABG pCO2 20.7 mmHg (32.0-48.0) L 10/13/20 07:18 ABG pCO2 32.4 mm Hg 10/26/20 10:30 POC ABG pO2 137.9 mmHg (83-108) H 10/13/20 07:18 ABG pO2 112.2 mm Hg (80.0-90.0) H 10/26/20 10:30 POC ABG HCO3 14.8 10/13/20 07:18 ABG HCO3 22.5 mmol/L (20.0-26.0) 10/26/20 10:30 ABG O2 Saturation 98.2 % (95.0-99.0) 10/26/20 10:30 ABG O2 Content 18.5 (0.0-44) 10/26/20 10:30 POC ABG Base Excess -6.9 10/13/20 07:18 ABG Base Excess -0.6 mmol/L (-2.0-3.0) 10/26/20 10:30 ABG Hemoglobin 13.5 gm/dl (12.0-16.0) 10/26/20 10:30 ABG Oxyhemoglobin 98.3 (94-98) H 10/13/20 07:18 ABG Carboxyhemoglobin 1.3 % (0.0-5.0) 10/26/20 10:30 ABG Methemoglobin 0.5 % (0.0-1.5) 10/26/20 10:30 ABG Sodium 135.9 mmol/L (136.0-145.0) L 10/13/20 07:18 ABG Potassium 3.7 mmol/L (3.40-4.50) 10/13/20 07:18 ABG Chloride 111.0 mmol/L (98-107) H 10/13/20 07:18 ABG Glucose 109 mg/dL (65-95) H 10/13/20 07:18 VBG pH 6.949 (7.320-7.420) L* 10/02/20 Unknown Oxyhemoglobin 96.5 % (95.0-99.0) 10/26/20 10:30 Carboxyhemoglobin 0.3 (0.5-1.5) L 10/13/20 07:18 FiO2 25 % 10/26/20 10:30 Sodium 140 mmol/L (137-145) 03/16/21 04:42 Potassium 3.9 mmol/L (3.6-5.0) 03/16/21 04:42 Chloride 103.1 mmol/L (98-107) 03/16/21 04:42 Carbon Dioxide 25 mmol/L (22-30) 03/16/21 04:42 Anion Gap 16 mmol/L 03/16/21 04:42 BUN 12 mg/dL (7-17) 03/16/21 04:42 Creatinine 0.5 mg/dL (0.6-1.2) L 03/16/21 04:42 Estimated GFR > 60 ml/min 03/16/21 04:42 BUN/Creatinine Ratio 24 % 03/16/21 04:42 Glucose 95 mg/dL (65-100) 03/16/21 04:42 POC Glucose 105 mg/dL (70-105) 04/12/21 06:59 Random Insulin 43.2 uIU/mL (<=19.6) H 11/02/20 19:19 Proinsulin See scanned result 11/02/20 19:19 C-Peptide 6.23 ng/mL (0.80-3.85) H 11/02/20 19:19 Lactic Acid 1.90 mmol/L (0.7-2.0) 10/04/20 22:00 Uric Acid 7.5 mg/dL (3.5-7.6) 10/02/20 13:05 Calcium 9.6 mg/dL (8.4-10.2) 03/16/21 04:42 Ionized Calcium 4.4 mg/dL (4.8-5.6) L 10/07/20 21:00 Phosphorus 4.60 mg/dL (2.5-4.5) H 11/13/20 10:05 Magnesium 2.10 mg/dL (1.7-2.3) 11/13/20 10:05 Total Bilirubin 0.80 mg/dL (0.1-1.2) 03/04/21 04:46 AST 51 units/L (5-40) H 03/04/21 04:46 ALT 53 units/L (7-56) 03/04/21 04:46 Alkaline Phosphatase 117 units/L (35-129) 03/04/21 04:46 Lactate Dehydrogenase 769 units/L (91-180) H 10/02/20 13:05 C-Reactive Protein 0.70 mg/dL (0.00-1.30) 11/11/20 13:50 NT-Pro-B Natriuret Pep 2788 pg/mL (0-450) H 10/04/20 10:00 Total Protein 8.4 g/dL (6.3-8.2) H 03/04/21 04:46 Albumin 4.2 g/dL (3.9-5) 03/04/21 04:46 Albumin/Globulin Ratio 1.0 % 03/04/21 04:46 Procalcitonin < 0.05 ng/mL (<0.15) 03/02/21 02:30 Arterial Blood Glucose 109 mg/dL (65-95) H 10/13/20 07:18 Arterial Blood Ionized Calcium 4.6 mg/dL (4.6-5.3) 10/13/20 07:18 Urine Color Yellow (Yellow) 01/25/21 09:51 Urine Turbidity Cloudy (Clear) 01/25/21 09:51 Urine pH 7.0 (5.0-7.0) 01/25/21 09:51 Ur Specific [place] 1.011 (1.003-1.030) 01/25/21 09:51 Urine Protein <15 mg/dl mg/dL (Negative) 01/25/21 09:51 Urine Glucose (UA) Neg mg/dL (Negative) 01/25/21 09:51 Urine Ketones Neg mg/dL (Negative) 01/25/21 09:51 Urine Blood Neg (Negative) 01/25/21 09:51 Urine Nitrite Neg (Negative) 01/25/21 09:51 Urine Bilirubin Neg (Negative) 01/25/21 09:51 Urine Urobilinogen < 2.0 mg/dL (<2.0) 01/25/21 09:51 Ur Leukocyte Esterase Neg (Negative) 01/25/21 09:51 Urine WBC (Auto) 6.0 /HPF (0.0-6.0) 01/25/21 09:51 Urine RBC (Auto) 3.0 /HPF (0.0-6.0) 01/25/21 09:51 U Epithel Cells (Auto) < 1.0 /HPF (0-13.0) 01/25/21 09:51 Urine Bacteria (Auto) 1+ /HPF (Negative) 01/18/21 08:47 Urine WBC Clumps 3+ /HPF 11/11/20 13:50 Calcium Oxalate Crystal Few 11/11/20 13:50 Urine Mucus Few /HPF 01/25/21 09:51 Urine Yeast (Budding) 2+ /HPF 01/25/21 09:51 Vancomycin Trough 12.6 ug/mL (5.0-20.0) 10/21/20 13:54 Random Vancomycin 10.7 ug/mL (0-40.0) 10/16/20 13:09 Phenytoin 5.7 ug/mL (10.0-20.0) L 10/13/20 07:00 C. difficile Tox (PCR) Positive (Negative) 10/16/20 10:22 Coronavirus (PCR) Negative (Negative) 10/08/20 14:15 Blood Type O POSITIVE 10/02/20 12:50 Antibody Screen Negative 10/02/20 12:50 Crossmatch See Detail 10/02/20 12:50 - Diagnostic Impressions Diagnostic Impressions: Echocardiogram 10/03/20 13:42 Transthoracic Echocardiogram Indication: S/P Cardiac Arrest R/O Cardiomyopathy BP: 133/71 Conclusions *Global left ventricular systolic function is normal. *The estimated ejection fraction is 60-65%. *There is trace of mitral regurgitation. *The right 0heart chambers are both slightly dilated. *There is mild tricuspid regurgitation. *There is mild-moderate pulmonary hypertension. *The right ventricular systolic pressure is calculated at 44 mmHg. *The study quality is technically difficult. Findings Procedure Info: The study quality is technically difficult. The study is technically limited due to patient body habitus. The study was technically limited due to the patient's inability to lay in the left lateral decubitus position. Left Ventricle: The left ventricular chamber size is normal. There is no left ventricular hypertrophy. Global left ventricular systolic function is normal. The estimated ejection fraction is 60-65%. Left Atrium: The left atrial chamber size is normal. Right Ventricle: The right ventricle is slightly dilated. Right Atrium: The right atrium is mildly dilated. Aortic Valve: The aortic valve leaflets are mildly thickened. There is no evidence of aortic regurgitation. There is no evidence of aortic stenosis. Mitral Valve: The mitral valve leaflets are mildly thickened. There is trace of mitral regurgitation. There is no evidence of mitral stenosis. Tricuspid Valve: There is mild tricuspid regurgitation. The right ventricular systolic pressure is calculated at 44 mmHg. There is evidence of mild pulmonary hypertension. Pulmonic Valve: There is trace pulmonic regurgitation. Pericardium: There is no pericardial effusion. Aorta: There is no dilatation of the ascending aorta. There is no dilatation of the aortic root. Venous: The inferior vena cava is dilated. Measurements Chambers 2D Name Value Normal Range IVSd (2D) 1 cm (0.6 - 1.1) LVPWd (2D) 1.01 cm (0.6 - 1.1) LVIDd (2D) 4.58 cm (3.7 - 5.6) LVIDs (2D) 3.17 cm (2 - 3.8) LV FS (2D) 30.93 % - EF Teichholz (2D) 58.66 % - Ao root diameter (2D) 2.94 cm (2 - 3.7) Volumes/Mass Name Value Normal Range LA ESV SP 4CH (A/L) 72.82 ml - LA ESV SP 2CH (A/L) 66.86 ml - LA ESV BP (A/L) 74.49 ml - LA ESV SP 4CH (MOD) 71.03 ml - LA ESV SP 2CH (MOD) 64.3 ml - LV EDV SP 4CH (MOD) 98.82 ml - LV ESV SP 4CH (MOD) 24.8 ml - EF SP 4CH (MOD) 74.9 % - LV EDV SP 2CH (MOD) 86.1 ml - LV ESV SP 2CH (MOD) 36.93 ml - EF SP 2CH (MOD) 57.11 % - LV EDV BP 94.4 ml - LV ESV BP 32.66 ml - BP EF (MOD) 65.4 % - Diastolic/Systolic Function Name Value Normal Range MV E-wave Vmax 1.04 m/sec - MV deceleration time 160.46 msec - MV A-wave Vmax 0.92 m/sec - MV E:A ratio 1.14 ratio - Aortic Valve Name Value Normal Range AV Vmax 2.12 m/sec - AV VTI 22.37 cm - AV peak gradient 17.95 mmHg - AV mean gradient 7.29 mmHg - LVOT diameter 2.01 cm - LVOT Vmax 1.8 m/sec - LVOT VTI 27.17 cm - LVOT peak gradient 12.91 mmHg - LVOT mean gradient 6.83 mmHg - SV LVOT 86.42 ml - ANITA (continuity Vmax) 2.7 cm2 - ANITA (continuity VTI) 3.86 cm2 - Ascending Ao 3.18 cm - Tricuspid Valve Name Value Normal Range TV E-wave Vmax 0.88 m/sec - TR Vmax 3.01 m/sec - TR peak gradient 36.27 mmHg - RAP 8 mmHg - RVSP 44 mmHg - IVC diameter 2.65 cm (1.2 - 2.3) Pulmonic Valve/Qp:Qs Name Value Normal Range PV Vmax 1.22 m/sec - PV peak gradient 5.91 mmHg - RVOT Vmax 0.87 m/sec - RVOT VTI 13.32 cm - RVOT peak gradient 3 mmHg - PV acceleration time 110.37 msec - [place]/IV: Voiding Method Incontinent IV Catheter Type [Right Foot] INT / Saline Lock IV Catheter Type [Left Forearm Peripheral IV ] IV Catheter Type [Left Wrist] INT / Saline Lock IV Catheter Type [Right Hand] INT / Saline Lock IV Catheter Type [Right INT / Saline Lock Antecubital] IV Catheter Type [Right Upper Mid-line arm] IV Catheter Type [Left Triple Lumen Cath Internal Jugular] IV Catheter Type [Left Hand] Peripheral IV IV Catheter Type [Left Peripheral IV Antecubital] Active Medications - Current Medications Current Medications: Generic Name Dose Route Start Last Admin Trade Name Freq PRN Reason Stop Dose Admin Acetaminophen 650 mg 10/05/20 16:34 04/11/21 12:07 Acetaminophen 325 Mg/10.15 Ml Oral Liqd Unit Dose FEEDTUBE 650 mg Q6H PRN Administration Non Cardiac Pain or Temp>100.5 Albuterol 2.5 mg 11/05/20 13:03 11/06/20 13:04 Albuterol 2.5 Mg/3 Ml Nebu IH 2.5 mg Q4HRT PRN Administration Shortness Of Breath Alprazolam 0.25 mg 01/20/21 13:33 04/11/21 12:06 Alprazolam 0.25 Mg Tab PO 0.25 mg Q8H PRN Administration Anxiety Lipase/Protease/Amylase 1 each 10/05/20 11:09 Lipase 10,500/Protease 25,000/Amylase 43,750 (Units) Dr Barakat FEEDTUBE PRN PRN For Clogged Feeding Tube Enoxaparin Sodium 40 mg 10/22/20 10:00 04/12/21 09:06 Enoxaparin 40 Mg/0.4 Ml Inj SUB-Q 40 mg DAILY ERINN Administration Protocol Famotidine 20 mg 10/07/20 10:00 04/12/21 23:46 Famotidine 20 Mg Tab PO 20 mg BID ERINN Administration Hydrophilic Ointment 1 applic 01/03/21 13:00 02/16/21 09:56 Lip Therapy Vaseline TP 1 applic DIRECT PRN Administration Dry Lips Metoprolol Tartrate 50 mg 02/02/21 16:01 04/12/21 23:46 Metoprolol Tartrate 25 Mg Tab PO 50 mg BID ERINN Administration Morphine Sulfate 2 mg 01/20/21 13:33 Morphine 2 Mg/1 Ml Inj IV Q4H PRN Pain, Moderate (4-6) Ondansetron HCl 4 mg 02/10/21 11:38 02/10/21 13:18 Ondansetron 4 Mg/2 Ml Inj IV 4 mg Q4H PRN Administration Nausea And Vomiting Simple Syrup 15 ml 10/05/20 11:09 Simple Syrup 15 Ml FEEDTUBE PRN PRN Hypoglycemia Simple Syrup 30 ml 10/05/20 11:09 03/23/21 06:11 Simple Syrup 15 Ml FEEDTUBE 30 ml PRN PRN Administration Hypoglycemia Sodium Bicarbonate 325 mg 10/05/20 11:09 12/16/20 08:19 Sodium Bicarbonate 325 Mg Tab FEEDTUBE 325 mg PRN PRN Administration For Clogged Feeding Tube Nutrition/Malnutrition Assess - Dietary Evaluation Nutrition/Malnutrition Findings: Nutrition Notes Start: 10/04/20 11:1 3 Freq: Status: Active Protocol: Document 04/07/21 14:35 (Rec: 04/07/21 14:37 [id number]) Nutrition Notes Initial or Follow up Reassessment Other Pertinent Diagnosis s/p cardiac arrest x 2, anoxic brain injury Current Diet TF - Promote at 65ml/hr Labs/Tests Reviewed Pertinent Medications Reviewed Height 5 ft 8 in Weight 91.2 kg [place] Body Weight (kg) 63.63 BMI 30.5 Weight Status Underweight Subjective/Other Information FU for TF tolerance. TF running at goal and pt tolerating. Percent of energy/protein needs met: 100%/100% Burn Absent Trauma Absent GI Symptoms None Difficulty In Swallowing,Chewing Current % PO Negligible Minimum of two criteria No #1 Nutrition Diagnosis Inadequate oral intake Diagnosis Progress(for reassessment Continues documentation) Is patient on ventilator? No Is Patient Ambulatory and/or Out of Bed No REE-([facility]-confined to bed) 2005.580 Kcal/Kg value to use for calculation 17 Approximate Energy Requirements Using 1550 kcal/Kg Calculation Used for Recommendations [facility] Additional Notes Pro needs 0.8-1g/k-89g/ day Fluid needs 1ml/kcal Nutrition Intervention Nutrition Support: Continue Promote at 65 mL/hr Flush 100 ml q4h Kcal 1,560 Protein (gm) 98 Fluid (mL) 1,309 Goal #1 TF tolerance Goal #2 TF to meet at least 75% estimated energy and protein needs. Follow-Up By: 04/14/21 Additional Comments FU for stable TF
[2021-04-13] MEDS: FAMOTIDINE 20 MG TAB PO SCH ×2 (11:10→22:47)
[2021-04-13] MEDS: METOPROLOL TARTRATE 25 MG TAB PO SCH ×2 (11:10→22:11)
[2021-04-13] MEDS: ENOXAPARIN 40 MG/0.4 ML INJ SUB-Q SCH (11:10)
[2021-04-14] MEDS: FAMOTIDINE 20 MG TAB PO SCH ×2 (09:05→22:26)
[2021-04-14] MEDS: METOPROLOL TARTRATE 25 MG TAB PO SCH (09:05)
[2021-04-14] MEDS: ENOXAPARIN 40 MG/0.4 ML INJ SUB-Q SCH (09:05)
--- NOTE | 2021-04-14 09:24 | Progress Note ---
Assessment and Plan Assessment and plan: 30 y/o female patient with Eclampsia/help syndrome, s/p emergent section with DIC, hemorrhage, supracervical abdominal hysterectomy, acute respiratory failure , tracheostomy on T-piece with morbid obesity, s/p cardiac arrest 12/08/2019 status post CPR per ACLS, acute hypoxic brain injury Acute kidney injury improved, severe shock requiring pressors, DIC septic shock improved, history of C. difficile colitis completed treatment with vancomycin. Tracheostomy on T-piece, continues to require 5 L of oxygen. Herpetic flareup, ID started treatment with antibiotics, patient is waiting for SNF placement DC planning per case management Assessment and plan: --Cardiac arrest; 10/07/2020 ,status post CPR --Acute hypoxic brain injury; Supportive care, closely monitor --Acute hypoxic respiratory failure: Tracheostomy on T-piece , today on 4.5 L oxygen, saturating 100% Supportive care, Pulmonary critical following COVID-19 negative C. difficile positive; Patient on contact isolation Completed treatment --Afebrile: Blood, urine, tracheal aspirate cultures New cultures negative to date Monitor off antibiotics Closely monitor --Sepsis; received antibiotics Continue to monitor off antibiotics ID following --COVID-19 test negative; 10/08/2020 --C. difficile colitis test; positive; 10/16/2020 --Acute metabolic encephalopathy --Acute kidney injury; vasomotor nephropathy Resolved, renal function within normal limits, closely monitor --Shock; monitor of pressors Blood pressures reasonable level --DIC; sepsis, septic shock, resolved --History of preeclampsia; / hemorrhage Status post hysterectomy --History of C. difficile colitis; completed oral vancomycin --DVT/SVT and right upper extremity Very poor prognosis, Consults recommendations noted and appreciated We will closely monitor the patient and adjust management as needed Plan of care reviewed with the patient's nurse. Waiting for [facility]ci facility placement Mr. Johnson in 87 03/16/2021; Awaiting placement. Patient is on PEG tube feeding. Saturating well on room air. Patient is mildly tachycardic. Pending placement. 03/17/2021; Awaiting placement. Patient is on PEG tube feeding. Saturating well on room air. Patient is mildly tachycardic. Pending placement. 03/18/2021; awaiting placement. 03/19/2021; awaiting placement. 03/20/2021; awaiting placement. 03/21/21; awaiting placement. 03/22/2021; Awaiting placement. Patient is on PEG tube feeding. Saturating well on room air. Patient is mildly tachycardic. Pending placement. 03/23/2021; multiple social issues, awaiting LTAC placement 03/24/2021; pending placement. Clinically no change, I discussed with patient's mother extensively, she had numerous questions answered all of them She requested a repeat CT head as she noticed significant change in her daughters level of consciousness. Will check CT head without contrast 03/25/2021; I discussed with patient's mother extensively yesterday 03/24/2021, she requested a repeat CT scan as she feels that patient is responding f/u CT head without contrast 03/24/2021; no acute abnormalities, pronounced diffuse cerebral atrophy. 03/26/2021; awaiting placement, multiple social issues, I called and discussed CT head findings with patient's mother Ms. Santiago She verbalized understanding. Disposition; pending placement 03/30/2021 I resumed service today; Clinically no change, awaiting placement, multiple social issues 03/31/2021; multiple social issues, awaiting placement 04/01/2021; clinically no change, social issues, awaiting placement 04/02/2021; patient response to some sound by moving her head, not purposeful Did not respond to communication, awaiting placement 04/03/2021; pending placement social issues, 04/04/2021; clinically no change, awaiting placement 04/05/2021; awaiting placement, clinically stable 04/06/2021; clinically no change, patient is stable Awaiting placement, multiple social issues 04/07/2021; awaiting placement social issues. 04/09/2021; patient saturates well on room air PEG tube/PEG feeds, hemodynamically and clinically stable Stable for discharge home with home health versus placement 04/10/21 Awaiting placement 04/11/21 Aawaiting placement 04/12/2021 Awaiting placement 04/13/2021; patient is more alert and awake, noncommunicative Spontaneous opening eyes, vital signs noted, awaiting placement Social issues 04/14/2021; clinically no change Awaiting placement History Interval history: I have seen and examined the patient at the bedside Patient's chart and medications reviewed Clinically no change patient has spontaneous opening of eyes Noncommunicative Anoxic brain injury, awaiting placement Vital signs noted Hospitalist Physical - Constitutional Vitals: Temp Pulse Resp BP Pulse Ox 98.9 F 100 H 22 128/78 98 04/13/21 22:03 04/14/21 09:05 04/13/21 22:03 04/14/21 09:05 04/13/21 22:03 General appearance: Present: no acute distress, well-nourished - EENT Eyes: Present: PERRL, EOM intact - Neck Neck: Present: supple, normal ROM - Respiratory Respiratory effort: normal Respiratory: bilateral: diminished, negative: rales, rhonchi, wheezing - Cardiovascular Rhythm: regular Heart Sounds: Present: S1 & S2 - Extremities Extremities: no ischemia, No edema - Abdominal General gastrointestinal: soft, non-tender, non-distended, normal bowel sounds, other (PEG tube in place) - Integumentary Integumentary: Present: clear, warm - Psychiatric Psychiatric: other (Noncommunicative) - Neurologic Neurologic: other (Unresponsive) HEART Score - HEART Score Age: < 45 Risk factors: 1-2 risk factors - Critical Actions Critical Actions: >7 pts:50-65% risk of adverse cardiac event. Early invasive measures Results - Labs CBC & Chem 7: 03/16/21 04:42 03/16/21 04:42 Labs: Laboratory Last Values WBC 9.4 K/mm3 (4.5-11.0) 03/16/21 04:42 RBC 5.06 M/mm3 (3.65-5.03) H 03/16/21 04:42 Hgb 12.2 gm/dl (10.1-14.3) 03/16/21 04:42 Hgb Comment See scanned result 10/04/20 Unknown Hct 37.6 % (30.3-42.9) 03/16/21 04:42 MCV 74 fl (79-97) L 03/16/21 04:42 MCH 24 pg (28-32) L 03/16/21 04:42 MCHC 33 % (30-34) 03/16/21 04:42 RDW 15.8 % (13.2-15.2) H 03/16/21 04:42 Plt Count 311 K/mm3 (140-440) 03/16/21 04:42 Lymph % (Auto) 33.5 % (13.4-35.0) 03/16/21 04:42 [place] % (Auto) 8.1 % (0.0-7.3) H 03/16/21 04:42 Eos % (Auto) 1.7 % (0.0-4.3) 03/16/21 04:42 Baso % (Auto) 0.5 % (0.0-1.8) 03/16/21 04:42 Lymph # (Auto) 3.1 K/mm3 (1.2-5.4) 03/16/21 04:42 [place] # (Auto) 0.8 K/mm3 (0.0-0.8) 03/16/21 04:42 Eos # (Auto) 0.2 K/mm3 (0.0-0.4) 03/16/21 04:42 Baso # (Auto) 0.0 K/mm3 (0.0-0.1) 03/16/21 04:42 Add Manual Diff Complete 02/09/21 10:59 Total Counted 100 02/09/21 10:59 Seg Neutrophils % 56.2 % (40.0-70.0) 03/16/21 04:42 Seg Neuts % (Manual) 58.0 % (40.0-70.0) 02/09/21 10:59 Band Neutrophils % 2.0 % 10/15/20 05:50 Lymphocytes % (Manual) 29.0 % (13.4-35.0) 02/09/21 10:59 Reactive Lymphs % (Man) 1.0 % 10/02/20 12:18 Monocytes % (Manual) 13.0 % (0.0-7.3) H 02/09/21 10:59 Eosinophils % (Manual) 1.0 % (0.0-4.3) 10/29/20 07:56 Myelocytes % 2.0 % 10/02/20 13:05 Metamyelocytes % 1.0 % 10/14/20 04:00 Nucleated RBC % Not Reportable 02/09/21 10:59 Seg Neutrophils # 5.3 K/mm3 (1.8-7.7) 03/16/21 04:42 Seg Neutrophils # Man 3.7 K/mm3 (1.8-7.7) 02/09/21 10:59 Band Neutrophils # 0.0 K/mm3 02/09/21 10:59 Lymphocytes # (Manual) 1.8 K/mm3 (1.2-5.4) 02/09/21 10:59 Abs React Lymphs (Man) 0.0 K/mm3 02/09/21 10:59 Monocytes # (Manual) 0.8 K/mm3 (0.0-0.8) 02/09/21 10:59 Eosinophils # (Manual) 0.0 K/mm3 (0.0-0.4) 02/09/21 10:59 Basophils # (Manual) 0.0 K/mm3 (0.0-0.1) 02/09/21 10:59 Metamyelocytes # 0.0 K/mm3 02/09/21 10:59 Myelocytes # 0.0 K/mm3 02/09/21 10:59 Promyelocytes # 0.0 K/mm3 02/09/21 10:59 Blast Cells # 0.0 K/mm3 02/09/21 10:59 WBC Morphology Not Reportable 02/09/21 10:59 Hypersegmented Neuts Not Reportable 02/09/21 10:59 Hyposegmented Neuts Not Reportable 02/09/21 10:59 Hypogranular Neuts Not Reportable 02/09/21 10:59 Smudge Cells Not Reportable 02/09/21 10:59 Toxic Granulation Not Reportable 02/09/21 10:59 Toxic Vacuolation Not Reportable 02/09/21 10:59 Dohle Bodies Not Reportable 02/09/21 10:59 Pelger-Huet Anomaly Not Reportable 02/09/21 10:59 Ester Rods Not Reportable 02/09/21 10:59 Platelet Estimate Consistent w auto 02/09/21 10:59 Clumped Platelets Not Reportable 02/09/21 10:59 Plt Clumps, EDTA Not Reportable 02/09/21 10:59 Large Platelets Few 02/09/21 10:59 Giant Platelets Not Reportable 02/09/21 10:59 Platelet Satelliting Not Reportable 02/09/21 10:59 Plt Morphology Comment Not Reportable 02/09/21 10:59 RBC Morphology Not Reportable 02/09/21 10:59 Dimorphic RBCs Not Reportable 02/09/21 10:59 Polychromasia Not Reportable 02/09/21 10:59 Hypochromasia 1+ 02/09/21 10:59 Poikilocytosis Not Reportable 02/09/21 10:59 Anisocytosis Not Reportable 02/09/21 10:59 Microcytosis Not Reportable 02/09/21 10:59 Macrocytosis Not Reportable 02/09/21 10:59 Spherocytes Not Reportable 02/09/21 10:59 Pappenheimer Bodies Not Reportable 02/09/21 10:59 Sickle Cells Not Reportable 02/09/21 10:59 Target Cells Not Reportable 02/09/21 10:59 Tear Drop Cells Not Reportable 02/09/21 10:59 Ovalocytes Not Reportable 02/09/21 10:59 Stomatocytes Few 10/14/20 04:00 Helmet Cells Not Reportable 02/09/21 10:59 [place] Bodies Not Reportable 02/09/21 10:59 [place] Rings Not Reportable 02/09/21 10:59 [place]ine Cells Not Reportable 02/09/21 10:59 Bite Cells Not Reportable 02/09/21 10:59 Crenated Cell Not Reportable 02/09/21 10:59 Elliptocytes Not Reportable 02/09/21 10:59 Acanthocytes (Spur) Not Reportable 02/09/21 10:59 Rouleaux Not Reportable 02/09/21 10:59 Hemoglobin C Crystals Not Reportable 02/09/21 10:59 Schistocytes Not Reportable 02/09/21 10:59 Malaria parasites Not Reportable 02/09/21 10:59 Sickle Cell Solubility See scanned result 10/04/20 Unknown Hemoglobin A See scanned result 10/04/20 Unknown Hemoglobin A2 See scanned result 10/04/20 Unknown Hemoglobin A2 Prime See scanned result 10/04/20 Unknown Hemoglobin C See scanned result 10/04/20 Unknown Hemoglobin D See scanned result 10/04/20 Unknown Hemoglobin E See scanned result 10/04/20 Unknown Hgb F Diffential Stain See scanned result 10/04/20 Unknown Hemoglobin F Quant See scanned result 10/04/20 Unknown Hemoglobin G See scanned result 10/04/20 Unknown Hemoglobin S See scanned result 10/04/20 Unknown Hemoglobin O[place] See scanned result 10/04/20 Unknown Hemoglobin [place] See scanned result 10/04/20 Unknown Hemoglobin Analilia See scanned result 10/04/20 Unknown Variant Hemoglobin See scanned result 10/04/20 Unknown Abnorm Hgb IEF Confirm See scanned result 10/04/20 Unknown Hemoglobin Interpret See scanned result 10/04/20 Unknown Hemoglobinopathy Note See scanned result 10/04/20 Unknown Sharad Bodies Not Reportable 02/09/21 10:59 Hem Pathologist Commnt No 02/09/21 10:59 PT 13.6 Sec. (12.2-14.9) 10/21/20 13:54 INR 1.06 (0.87-1.13) 10/21/20 13:54 APTT 31.6 Sec. (24.2-36.6) 10/03/20 00:40 Fibrinogen 336 mg/dl (211-480) 10/04/20 10:00 D-Dimer 1974.47 ng/mlDDU (0-234) H 11/11/20 13:50 ABG pH 7.459 pH Units (7.350-7.450) H 10/26/20 10:30 POC ABG pCO2 20.7 mmHg (32.0-48.0) L 10/13/20 07:18 ABG pCO2 32.4 mm Hg 10/26/20 10:30 POC ABG pO2 137.9 mmHg (83-108) H 10/13/20 07:18 ABG pO2 112.2 mm Hg (80.0-90.0) H 10/26/20 10:30 POC ABG HCO3 14.8 10/13/20 07:18 ABG HCO3 22.5 mmol/L (20.0-26.0) 10/26/20 10:30 ABG O2 Saturation 98.2 % (95.0-99.0) 10/26/20 10:30 ABG O2 Content 18.5 (0.0-44) 10/26/20 10:30 POC ABG Base Excess -6.9 10/13/20 07:18 ABG Base Excess -0.6 mmol/L (-2.0-3.0) 10/26/20 10:30 ABG Hemoglobin 13.5 gm/dl (12.0-16.0) 10/26/20 10:30 ABG Oxyhemoglobin 98.3 (94-98) H 10/13/20 07:18 ABG Carboxyhemoglobin 1.3 % (0.0-5.0) 10/26/20 10:30 ABG Methemoglobin 0.5 % (0.0-1.5) 10/26/20 10:30 ABG Sodium 135.9 mmol/L (136.0-145.0) L 10/13/20 07:18 ABG Potassium 3.7 mmol/L (3.40-4.50) 10/13/20 07:18 ABG Chloride 111.0 mmol/L (98-107) H 10/13/20 07:18 ABG Glucose 109 mg/dL (65-95) H 10/13/20 07:18 VBG pH 6.949 (7.320-7.420) L* 10/02/20 Unknown Oxyhemoglobin 96.5 % (95.0-99.0) 10/26/20 10:30 Carboxyhemoglobin 0.3 (0.5-1.5) L 10/13/20 07:18 FiO2 25 % 10/26/20 10:30 Sodium 140 mmol/L (137-145) 03/16/21 04:42 Potassium 3.9 mmol/L (3.6-5.0) 03/16/21 04:42 Chloride 103.1 mmol/L (98-107) 03/16/21 04:42 Carbon Dioxide 25 mmol/L (22-30) 03/16/21 04:42 Anion Gap 16 mmol/L 03/16/21 04:42 BUN 12 mg/dL (7-17) 03/16/21 04:42 Creatinine 0.5 mg/dL (0.6-1.2) L 03/16/21 04:42 Estimated GFR > 60 ml/min 03/16/21 04:42 BUN/Creatinine Ratio 24 % 03/16/21 04:42 Glucose 95 mg/dL (65-100) 03/16/21 04:42 POC Glucose 95 mg/dL (70-105) 04/13/21 21:25 Random Insulin 43.2 uIU/mL (<=19.6) H 11/02/20 19:19 Proinsulin See scanned result 11/02/20 19:19 C-Peptide 6.23 ng/mL (0.80-3.85) H 11/02/20 19:19 Lactic Acid 1.90 mmol/L (0.7-2.0) 10/04/20 22:00 Uric Acid 7.5 mg/dL (3.5-7.6) 10/02/20 13:05 Calcium 9.6 mg/dL (8.4-10.2) 03/16/21 04:42 Ionized Calcium 4.4 mg/dL (4.8-5.6) L 10/07/20 21:00 Phosphorus 4.60 mg/dL (2.5-4.5) H 11/13/20 10:05 Magnesium 2.10 mg/dL (1.7-2.3) 11/13/20 10:05 Total Bilirubin 0.80 mg/dL (0.1-1.2) 03/04/21 04:46 AST 51 units/L (5-40) H 03/04/21 04:46 ALT 53 units/L (7-56) 03/04/21 04:46 Alkaline Phosphatase 117 units/L (35-129) 03/04/21 04:46 Lactate Dehydrogenase 769 units/L (91-180) H 10/02/20 13:05 C-Reactive Protein 0.70 mg/dL (0.00-1.30) 11/11/20 13:50 NT-Pro-B Natriuret Pep 2788 pg/mL (0-450) H 10/04/20 10:00 Total Protein 8.4 g/dL (6.3-8.2) H 03/04/21 04:46 Albumin 4.2 g/dL (3.9-5) 03/04/21 04:46 Albumin/Globulin Ratio 1.0 % 03/04/21 04:46 Procalcitonin < 0.05 ng/mL (<0.15) 03/02/21 02:30 Arterial Blood Glucose 109 mg/dL (65-95) H 10/13/20 07:18 Arterial Blood Ionized Calcium 4.6 mg/dL (4.6-5.3) 10/13/20 07:18 Urine Color Yellow (Yellow) 01/25/21 09:51 Urine Turbidity Cloudy (Clear) 01/25/21 09:51 Urine pH 7.0 (5.0-7.0) 01/25/21 09:51 Ur Specific [place] 1.011 (1.003-1.030) 01/25/21 09:51 Urine Protein <15 mg/dl mg/dL (Negative) 01/25/21 09:51 Urine Glucose (UA) Neg mg/dL (Negative) 01/25/21 09:51 Urine Ketones Neg mg/dL (Negative) 01/25/21 09:51 Urine Blood Neg (Negative) 01/25/21 09:51 Urine Nitrite Neg (Negative) 01/25/21 09:51 Urine Bilirubin Neg (Negative) 01/25/21 09:51 Urine Urobilinogen < 2.0 mg/dL (<2.0) 01/25/21 09:51 Ur Leukocyte Esterase Neg (Negative) 01/25/21 09:51 Urine WBC (Auto) 6.0 /HPF (0.0-6.0) 01/25/21 09:51 Urine RBC (Auto) 3.0 /HPF (0.0-6.0) 01/25/21 09:51 U Epithel Cells (Auto) < 1.0 /HPF (0-13.0) 01/25/21 09:51 Urine Bacteria (Auto) 1+ /HPF (Negative) 01/18/21 08:47 Urine WBC Clumps 3+ /HPF 11/11/20 13:50 Calcium Oxalate Crystal Few 11/11/20 13:50 Urine Mucus Few /HPF 01/25/21 09:51 Urine Yeast (Budding) 2+ /HPF 01/25/21 09:51 Vancomycin Trough 12.6 ug/mL (5.0-20.0) 10/21/20 13:54 Random Vancomycin 10.7 ug/mL (0-40.0) 10/16/20 13:09 Phenytoin 5.7 ug/mL (10.0-20.0) L 10/13/20 07:00 C. difficile Tox (PCR) Positive (Negative) 10/16/20 10:22 Coronavirus (PCR) Negative (Negative) 10/08/20 14:15 Blood Type O POSITIVE 10/02/20 12:50 Antibody Screen Negative 10/02/20 12:50 Crossmatch See Detail 10/02/20 12:50 - Diagnostic Impressions Diagnostic Impressions: Echocardiogram 10/03/20 13:42 Transthoracic Echocardiogram Indication: S/P Cardiac Arrest R/O Cardiomyopathy BP: 133/71 Conclusions *Global left ventricular systolic function is normal. *The estimated ejection fraction is 60-65%. *There is trace of mitral regurgitation. *The right 0heart chambers are both slightly dilated. *There is mild tricuspid regurgitation. *There is mild-moderate pulmonary hypertension. *The right ventricular systolic pressure is calculated at 44 mmHg. *The study quality is technically difficult. Findings Procedure Info: The study quality is technically difficult. The study is technically limited due to patient body habitus. The study was technically limited due to the patient's inability to lay in the left lateral decubitus position. Left Ventricle: The left ventricular chamber size is normal. There is no left ventricular hypertrophy. Global left ventricular systolic function is normal. The estimated ejection fraction is 60-65%. Left Atrium: The left atrial chamber size is normal. Right Ventricle: The right ventricle is slightly dilated. Right Atrium: The right atrium is mildly dilated. Aortic Valve: The aortic valve leaflets are mildly thickened. There is no evidence of aortic regurgitation. There is no evidence of aortic stenosis. Mitral Valve: The mitral valve leaflets are mildly thickened. There is trace of mitral regurgitation. There is no evidence of mitral stenosis. Tricuspid Valve: There is mild tricuspid regurgitation. The right ventricular systolic pressure is calculated at 44 mmHg. There is evidence of mild pulmonary hypertension. Pulmonic Valve: There is trace pulmonic regurgitation. Pericardium: There is no pericardial effusion. Aorta: There is no dilatation of the ascending aorta. There is no dilatation of the aortic root. Venous: The inferior vena cava is dilated. Measurements Chambers 2D Name Value Normal Range IVSd (2D) 1 cm (0.6 - 1.1) LVPWd (2D) 1.01 cm (0.6 - 1.1) LVIDd (2D) 4.58 cm (3.7 - 5.6) LVIDs (2D) 3.17 cm (2 - 3.8) LV FS (2D) 30.93 % - EF Teichholz (2D) 58.66 % - Ao root diameter (2D) 2.94 cm (2 - 3.7) Volumes/Mass Name Value Normal Range LA ESV SP 4CH (A/L) 72.82 ml - LA ESV SP 2CH (A/L) 66.86 ml - LA ESV BP (A/L) 74.49 ml - LA ESV SP 4CH (MOD) 71.03 ml - LA ESV SP 2CH (MOD) 64.3 ml - LV EDV SP 4CH (MOD) 98.82 ml - LV ESV SP 4CH (MOD) 24.8 ml - EF SP 4CH (MOD) 74.9 % - LV EDV SP 2CH (MOD) 86.1 ml - LV ESV SP 2CH (MOD) 36.93 ml - EF SP 2CH (MOD) 57.11 % - LV EDV BP 94.4 ml - LV ESV BP 32.66 ml - BP EF (MOD) 65.4 % - Diastolic/Systolic Function Name Value Normal Range MV E-wave Vmax 1.04 m/sec - MV deceleration time 160.46 msec - MV A-wave Vmax 0.92 m/sec - MV E:A ratio 1.14 ratio - Aortic Valve Name Value Normal Range AV Vmax 2.12 m/sec - AV VTI 22.37 cm - AV peak gradient 17.95 mmHg - AV mean gradient 7.29 mmHg - LVOT diameter 2.01 cm - LVOT Vmax 1.8 m/sec - LVOT VTI 27.17 cm - LVOT peak gradient 12.91 mmHg - LVOT mean gradient 6.83 mmHg - SV LVOT 86.42 ml - ANITA (continuity Vmax) 2.7 cm2 - ANITA (continuity VTI) 3.86 cm2 - Ascending Ao 3.18 cm - Tricuspid Valve Name Value Normal Range TV E-wave Vmax 0.88 m/sec - TR Vmax 3.01 m/sec - TR peak gradient 36.27 mmHg - RAP 8 mmHg - RVSP 44 mmHg - IVC diameter 2.65 cm (1.2 - 2.3) Pulmonic Valve/Qp:Qs Name Value Normal Range PV Vmax 1.22 m/sec - PV peak gradient 5.91 mmHg - RVOT Vmax 0.87 m/sec - RVOT VTI 13.32 cm - RVOT peak gradient 3 mmHg - PV acceleration time 110.37 msec - [place]/IV: Voiding Method Incontinent IV Catheter Type [Right Foot] INT / Saline Lock IV Catheter Type [Left Forearm Peripheral IV ] IV Catheter Type [Left Wrist] INT / Saline Lock IV Catheter Type [Right Hand] INT / Saline Lock IV Catheter Type [Right INT / Saline Lock Antecubital] IV Catheter Type [Right Upper Mid-line arm] IV Catheter Type [Left Triple Lumen Cath Internal Jugular] IV Catheter Type [Left Hand] Peripheral IV IV Catheter Type [Left Peripheral IV Antecubital] Active Medications - Current Medications Current Medications: Generic Name Dose Route Start Last Admin Trade Name Freq PRN Reason Stop Dose Admin Acetaminophen 650 mg 10/05/20 16:34 04/11/21 12:07 Acetaminophen 325 Mg/10.15 Ml Oral Liqd Unit Dose FEEDTUBE 650 mg Q6H PRN Administration Non Cardiac Pain or Temp>100.5 Albuterol 2.5 mg 11/05/20 13:03 11/06/20 13:04 Albuterol 2.5 Mg/3 Ml Nebu IH 2.5 mg Q4HRT PRN Administration Shortness Of Breath Alprazolam 0.25 mg 01/20/21 13:33 04/11/21 12:06 Alprazolam 0.25 Mg Tab PO 0.25 mg Q8H PRN Administration Anxiety Lipase/Protease/Amylase 1 each 10/05/20 11:09 Lipase 10,500/Protease 25,000/Amylase 43,750 (Units) Dr Yuval GASCA PRN PRN For Clogged Feeding Tube Enoxaparin Sodium 40 mg 10/22/20 10:00 04/14/21 09:05 Enoxaparin 40 Mg/0.4 Ml Inj SUB-Q 40 mg DAILY ERINN Administration Protocol Famotidine 20 mg 10/07/20 10:00 04/14/21 09:05 Famotidine 20 Mg Tab PO 20 mg BID ERINN Administration Hydrophilic Ointment 1 applic 01/03/21 13:00 02/16/21 09:56 Lip Therapy Vaseline TP 1 applic DIRECT PRN Administration Dry Lips Metoprolol Tartrate 50 mg 02/02/21 16:01 04/14/21 09:05 Metoprolol Tartrate 25 Mg Tab PO 50 mg BID ERINN Administration Morphine Sulfate 2 mg 01/20/21 13:33 Morphine 2 Mg/1 Ml Inj IV Q4H PRN Pain, Moderate (4-6) Ondansetron HCl 4 mg 02/10/21 11:38 02/10/21 13:18 Ondansetron 4 Mg/2 Ml Inj IV 4 mg Q4H PRN Administration Nausea And Vomiting Simple Syrup 15 ml 10/05/20 11:09 Simple Syrup 15 Ml FEEDTUBE PRN PRN Hypoglycemia Simple Syrup 30 ml 10/05/20 11:09 03/23/21 06:11 Simple Syrup 15 Ml FEEDTUBE 30 ml PRN PRN Administration Hypoglycemia Sodium Bicarbonate 325 mg 10/05/20 11:09 12/16/20 08:19 Sodium Bicarbonate 325 Mg Tab FEEDTUBE 325 mg PRN PRN Administration For Clogged Feeding Tube Nutrition/Malnutrition Assess - Dietary Evaluation Nutrition/Malnutrition Findings: Nutrition Notes Start: 10/04/20 11:13 Freq: Status: Active Protocol: Document 04/07/21 14:35 (Rec: 04/07/21 14:37 [email or web address]) Nutrition Notes Initial or Follow up Reassessment Other Pertinent Diagnosis s/p cardiac arrest x 2, anoxic brain injury Current Diet TF - Promote at 65ml/hr Labs/Tests Reviewed Pertinent Medications Reviewed Height 5 ft 8 in Weight 91.2 kg [place] Body Weight (kg) 63.63 BMI 30.5 Weight Status Underweight Subjective/Other Information FU for TF tolerance. TF running at goal and pt tolerating. Percent of energy/protein needs met: 100%/100% Burn Absent Trauma Absent GI Symptoms None Difficulty In Swallowing,Chewing Current % PO Negligible Minimum of two criteria No #1 Nutrition Diagnosis Inadequate oral intake Diagnosis Progress(for reassessment Continues documentation) Is patient on ventilator? No Is Patient Ambulatory and/or Out of Bed No REE-([facility]-confined to bed) 2005.580 Kcal/Kg value to use for calculation 17 Approximate Energy Requirements Using 1550 kcal/Kg Calculation Used for Recommendations [facility] Additional Notes Pro needs 0.8-1g/k-89g/ day Fluid needs 1ml/kcal Nutrition Intervention Nutrition Support: Continue Promote at 65 mL/hr Flush 100 ml q4h Kcal 1,560 Protein (gm) 98 Fluid (mL) 1,309 Goal #1 TF tolerance Goal #2 TF to meet at least 75% estimated energy and protein needs. Follow-Up By: 04/14/21 Additional Comments FU for stable TF
[2021-04-14] MEDS: ALPRAZolam 0.25 MG TAB PO PRN (20:14)
[2021-04-15] MEDS: METOPROLOL TARTRATE 25 MG TAB PO SCH ×3 (00:18→21:21)
--- NOTE | 2021-04-15 09:01 | Progress Note ---
Assessment and Plan Assessment and plan: Assessment and plan: --Cardiac arrest; 10/07/2020 ,status post CPR --Acute hypoxic brain injury; Supportive care, closely monitor --Acute hypoxic respiratory failure: Tracheostomy on T-piece , today on 4.5 L oxygen, saturating 100% Supportive care, Pulmonary critical following COVID-19 negative C. difficile positive; Patient on contact isolation Completed treatment --Afebrile: Blood, urine, tracheal aspirate cultures New cultures negative to date Monitor off antibiotics Closely monitor --Sepsis; received antibiotics Continue to monitor off antibiotics ID following --COVID-19 test negative; 10/08/2020 --C. difficile colitis test; positive; 10/16/2020 --Acute metabolic encephalopathy --Acute kidney injury; vasomotor nephropathy Resolved, renal function within normal limits, closely monitor --Shock; monitor of pressors Blood pressures reasonable level --DIC; sepsis, septic shock, resolved --History of preeclampsia; / hemorrhage Status post hysterectomy --History of C. difficile colitis; completed oral vancomycin --DVT/SVT and right upper extremity Very poor prognosis, Consults recommendations noted and appreciated We will closely monitor the patient and adjust management as needed Plan of care reviewed with the patient's nurse. Waiting for fci facility placement Brief history/daily hospital course 30 y/o female patient with Eclampsia/help syndrome, s/p emergent section with DIC, hemorrhage, supracervical abdominal hysterectomy, acute respiratory failure , tracheostomy on T-piece with morbid obesity, s/p cardiac arrest 12/08/2019 status post CPR per ACLS, acute hypoxic brain injury Acute kidney injury improved, severe shock requiring pressors, DIC septic shock improved, history of C. difficile colitis completed treatment with vancomycin. Tracheostomy on T-piece, continues to require 5 L of oxygen. Herpetic flareup, ID started treatment with antibiotics, patient is waiting for SNF placement DC planning per case management 10/02/2020-03/15/2021 daily hospital course reviewed 03/16/2021; Awaiting placement. Patient is on PEG tube feeding. Saturating well on room air. Patient is mildly tachycardic. Pending placement. 03/17/2021; Awaiting placement. Patient is on PEG tube feeding. Saturating well on room air. Patient is mildly tachycardic. Pending placement. 03/18/2021; awaiting placement. 03/19/2021; awaiting placement. 03/20/2021; awaiting placement. 03/21/21; awaiting placement. 03/22/2021; Awaiting placement. Patient is on PEG tube feeding. Saturating well on room air. Patient is mildly tachycardic. Pending placement. 03/23/2021; multiple social issues, awaiting LTAC placement 03/24/2021; pending placement. Clinically no change, I discussed with patient's mother extensively, she had numerous questions answered all of them She requested a repeat CT head as she noticed significant change in her daughters level of consciousness. Will check CT head without contrast 03/25/2021; I discussed with patient's mother extensively yesterday 03/24/2021, she requested a repeat CT scan as she feels that patient is responding f/u CT head without contrast 03/24/2021; no acute abnormalities, pronounced diff use cerebral atrophy. 03/26/2021; awaiting placement, multiple social issues, I called and discussed CT head findings with patient's mother Ms. Santiago She verbalized understanding. Disposition; pending placement 03/30/2021 I resumed service today; Clinically no change, awaiting placement, multiple social issues 03/31/2021; multiple social issues, awaiting placement 04/01/2021; clinically no change, social issues, awaiting placement 04/02/2021; patient response to some sound by moving her head, not purposeful Did not respond to communication, awaiting placement 04/03/2021; pending placement social issues, 04/04/2021; clinically no change, awaiting placement 04/05/2021; awaiting placement, clinically stable 04/06/2021; clinically no change, patient is stable Awaiting placement, multiple social issues 04/07/2021; awaiting placement social issues. 04/09/2021; patient saturates well on room air PEG tube/PEG feeds, hemodynamically and clinically stable Stable for discharge home with home health versus placement 04/10/21 Awaiting placement 04/11/21 Aawaiting placement 04/12/2021 Awaiting placement 04/13/2021; patient is more alert and awake, noncommunicative Spontaneous opening eyes, vital signs noted, awaiting placement Social issues 04/14/2021; clinically no change Awaiting placement 04/16/2021; awaiting placement Multiple social issues History Interval history: Seen and examined the patient today at the bedside Chart and medications reviewed No new events reported by nursing Noncommunicative vital signs noted Hospitalist Physical - Constitutional Vitals: Temp Pulse Resp BP Pulse Ox 97.9 F 89 20 152/75 99 04/15/21 04:39 04/15/21 04:39 04/15/21 04:39 04/15/21 04:39 04/15/21 04:39 General appearance: Present: no acute distress, well-nourished, obese - EENT Eyes: Present: PERRL, EOM intact - Neck Neck: Present: supple, normal ROM - Respiratory Respiratory effort: normal Respiratory: bilateral: diminished, rhonchi, negative: rales, wheezing - Cardiovascular Rhythm: regular Heart Sounds: Present: S1 & S2 - Extremities Extremities: no ischemia, No edema - Abdominal General gastrointestinal: soft, non-tender, non-distended, normal bowel sounds - Integumentary Integumentary: Present: clear, warm - Psychiatric Psychiatric: appropriate mood/affect, cooperative - Neurologic Neurologic: moves all extremities HEART Score - HEART Score Age: < 45 Risk factors: 1-2 risk factors - Critical Actions Critical Actions: >7 pts:50-65% risk of adverse cardiac event. Early invasive measures Results - Labs CBC & Chem 7: 03/16/21 04:42 04/16/21 08:37 Labs: Laboratory Last Values WBC 9.4 K/mm3 (4.5-11.0) 03/16/21 04:42 RBC 5.06 M/mm3 (3.65-5.03) H 03/16/21 04:42 Hgb 12.2 gm/dl (10.1-14.3) 03/16/21 04:42 Hgb Comment See scanned result 10/04/20 Unknown Hct 37.6 % (30.3-42.9) 03/16/21 04:42 MCV 74 fl (79-97) L 03/16/21 04:42 MCH 24 pg (28-32) L 03/16/21 04:42 MCHC 33 % (30-34) 03/16/21 04:42 RDW 15.8 % (13.2-15.2) H 03/16/21 04:42 Plt Count 311 K/mm3 (140-440) 03/16/21 04:42 Lymph % (Auto) 33.5 % (13.4-35.0) 03/16/21 04:42 [place] % (Auto) 8.1 % (0.0-7.3) H 03/16/21 04:42 Eos % (Auto) 1.7 % (0.0-4.3) 03/16/21 04:42 Baso % (Auto) 0.5 % (0.0-1.8) 03/16/21 04:42 Lymph # (Auto) 3.1 K/mm3 (1.2-5.4) 03/16/21 04:42 [place] # (Auto) 0.8 K/mm3 (0.0-0.8) 03/16/21 04:42 Eos # (Auto) 0.2 K/mm3 (0.0-0.4) 03/16/21 04:42 Baso # (Auto) 0.0 K/mm3 (0.0-0.1) 03/16/21 04:42 Add Manual Diff Complete 02/09/21 10:59 Total Counted 100 02/09/21 10:59 Seg Neutrophils % 56.2 % (40.0-70.0) 03/16/21 04:42 Seg Neuts % (Manual) 58.0 % (40.0-70.0) 02/09/21 10:59 Band Neutrophils % 2.0 % 10/15/20 05:50 Lymphocytes % (Manual) 29.0 % (13.4-35.0) 02/09/21 10:59 Reactive Lymphs % (Man) 1.0 % 10/02/20 12:18 Monocytes % (Manual) 13.0 % (0.0-7.3) H 02/09/21 10:59 Eosinophils % (Manual) 1.0 % (0.0-4.3) 10/29/20 07:56 Myelocytes % 2.0 % 10/02/20 13:05 Metamyelocytes % 1.0 % 10/14/20 04:00 Nucleated RBC % Not Reportable 02/09/21 10:59 Seg Neutrophils # 5.3 K/mm3 (1.8-7.7) 03/16/21 04:42 Seg Neutrophils # Man 3.7 K/mm3 (1.8-7.7) 02/09/21 10:59 Band Neutrophils # 0.0 K/mm3 02/09/21 10:59 Lymphocytes # (Manual) 1.8 K/mm3 (1.2-5.4) 02/09/21 10:59 Abs React Lymphs (Man) 0.0 K/mm3 02/09/21 10:59 Monocytes # (Manual) 0.8 K/mm3 (0.0-0.8) 02/09/21 10:59 Eosinophils # (Manual) 0.0 K/mm3 (0.0-0.4) 02/09/21 10:59 Basophils # (Manual) 0.0 K/mm3 (0.0-0.1) 02/09/21 10:59 Metamyelocytes # 0.0 K/mm3 02/09/21 10:59 Myelocytes # 0.0 K/mm3 02/09/21 10:59 Promyelocytes # 0.0 K/mm3 02/09/21 10:59 Blast Cells # 0.0 K/mm3 02/09/21 10:59 WBC Morphology Not Reportable 02/09/21 10:59 Hypersegmented Neuts Not Reportable 02/09/21 10:59 Hyposegmented Neuts Not Reportable 02/09/21 10:59 Hypogranular Neuts Not Reportable 02/09/21 10:59 Smudge Cells Not Reportable 02/09/21 10:59 Toxic Granulation Not Reportable 02/09/21 10:59 Toxic Vacuolation Not Reportable 02/09/21 10:59 Dohle Bodies Not Reportable 02/09/21 10:59 Pelger-Huet Anomaly Not Reportable 02/09/21 10:59 Ester Rods Not Reportable 02/09/21 10:59 Platelet Estimate Consistent w auto 02/09/21 10:59 Clumped Platelets Not Reportable 02/09/21 10:59 Plt Clumps, EDTA Not Reportable 02/09/21 10:59 Large Platelets Few 02/09/21 10:59 Giant Platelets Not Reportable 02/09/21 10:59 Platelet Satelliting Not Reportable 02/09/21 10:59 Plt Morphology Comment Not Reportable 02/09/21 10:59 RBC Morphology Not Reportable 02/09/21 10:59 Dimorphic RBCs Not Reportable 02/09/21 10:59 Polychromasia Not Reportable 02/09/21 10:59 Hypochromasia 1+ 02/09/21 10:59 Poikilocytosis Not Reportable 02/09/21 10:59 Anisocytosis Not Reportable 02/09/21 10:59 Microcytosis Not Reportable 02/09/21 10:59 Macrocytosis Not Reportable 02/09/21 10:59 Spherocytes Not Reportable 02/09/21 10:59 Pappenheimer Bodies Not Reportable 02/09/21 10:59 Sickle Cells Not Reportable 02/09/21 10:59 Target Cells Not Reportable 02/09/21 10:59 Tear Drop Cells Not Reportable 02/09/21 10:59 Ovalocytes Not Reportable 02/09/21 10:59 Stomatocytes Few 10/14/20 04:00 Helmet Cells Not Reportable 02/09/21 10:59 Burk-Poyen Bodies Not Reportable 02/09/21 10:59 [place] Rings Not Reportable 02/09/21 10:59 [place] Cells Not Reportable 02/09/21 10:59 Bite Cells Not Reportable 02/09/21 10:59 Crenated Cell Not Reportable 02/09/21 10:59 Elliptocytes Not Reportable 02/09/21 10:59 Acanthocytes (Spur) Not Reportable 02/09/21 10:59 Rouleaux Not Reportable 02/09/21 10:59 Hemoglobin C Crystals Not Reportable 02/09/21 10:59 Schistocytes Not Reportable 02/09/21 10:59 Malaria parasites Not Reportable 02/09/21 10:59 Sickle Cell Solubility See scanned result 10/04/20 Unknown Hemoglobin A See scanned result 10/04/20 Unknown Hemoglobin A2 See scanned result 10/04/20 Unknown Hemoglobin A2 Prime See scanned result 10/04/20 Unknown Hemoglobin C See scanned result 10/04/20 Unknown Hemoglobin D See scanned result 10/04/20 Unknown Hemoglobin E See scanned result 10/04/20 Unknown Hgb F Diffential Stain See scanned result 10/04/20 Unknown Hemoglobin F Quant See scanned result 10/04/20 Unknown Hemoglobin G See scanned result 10/04/20 Unknown Hemoglobin S See scanned result 10/04/20 Unknown Hemoglobin [place] See scanned result 10/04/20 Unknown Hemoglobin [place] See scanned result 10/04/20 Unknown Hemoglobin Analilia See scanned result 10/04/20 Unknown Variant Hemoglobin See scanned result 10/04/20 Unknown Abnorm Hgb IEF Confirm See scanned result 10/04/20 Unknown Hemoglobin Interpret See scanned result 10/04/20 Unknown Hemoglobinopathy Note See scanned result 10/04/20 Unknown Sharad Bodies Not Reportable 02/09/21 10:59 Hem Pathologist Commnt No 02/09/21 10:59 PT 13.6 Sec. (12.2-14.9) 10/21/20 13:54 INR 1.06 (0.87-1.13) 10/21/20 13:54 APTT 31.6 Sec. (24.2-36.6) 10/03/20 00:40 Fibrinogen 336 mg/dl (211-480) 10/04/20 10:00 D-Dimer 1974.47 ng/mlDDU (0-234) H 11/11/20 13:50 ABG pH 7.459 pH Units (7.350-7.450) H 10/26/20 10:30 POC ABG pCO2 20.7 mmHg (32.0-48.0) L 10/13/20 07:18 ABG pCO2 32.4 mm Hg 10/26/20 10:30 POC ABG pO2 137.9 mmHg (83-108) H 10/13/20 07:18 ABG pO2 112.2 mm Hg (80.0-90.0) H 10/26/20 10:30 POC ABG HCO3 14.8 10/13/20 07:18 ABG HCO3 22.5 mmol/L (20.0-26.0) 10/26/20 10:30 ABG O2 Saturation 98.2 % (95.0-99.0) 10/26/20 10:30 ABG O2 Content 18.5 (0.0-44) 10/26/20 10:30 POC ABG Base Excess -6.9 10/13/20 07:18 ABG Base Excess -0.6 mmol/L (-2.0-3.0) 10/26/20 10:30 ABG Hemoglobin 13.5 gm/dl (12.0-16.0) 10/26/20 10:30 ABG Oxyhemoglobin 98.3 (94-98) H 10/13/20 07:18 ABG Carboxyhemoglobin 1.3 % (0.0-5.0) 10/26/20 10:30 ABG Methemoglobin 0.5 % (0.0-1.5) 10/26/20 10:30 ABG Sodium 135.9 mmol/L (136.0-145.0) L 10/13/20 07:18 ABG Potassium 3.7 mmol/L (3.40-4.50) 10/13/20 07:18 ABG Chloride 111.0 mmol/L (98-107) H 10/13/20 07:18 ABG Glucose 109 mg/dL (65-95) H 10/13/20 07:18 VBG pH 6.949 (7.320-7.420) L* 10/02/20 Unknown Oxyhemoglobin 96.5 % (95.0-99.0) 10/26/20 10:30 Carboxyhemoglobin 0.3 (0.5-1.5) L 10/13/20 07:18 FiO2 25 % 10/26/20 10:30 Sodium 140 mmol/L (137-145) 03/16/21 04:42 Potassium 3.9 mmol/L (3.6-5.0) 03/16/21 04:42 Chloride 103.1 mmol/L (98-107) 03/16/21 04:42 Carbon Dioxide 25 mmol/L (22-30) 03/16/21 04:42 Anion Gap 16 mmol/L 03/16/21 04:42 BUN 12 mg/dL (7-17) 03/16/21 04:42 Creatinine 0.5 mg/dL (0.6-1.2) L 03/16/21 04:42 Estimated GFR > 60 ml/min 03/16/21 04:42 BUN/Creatinine Ratio 24 % 03/16/21 04:42 Glucose 95 mg/dL (65-100) 03/16/21 04:42 POC Glucose 95 mg/dL (70-105) 04/13/21 21:25 Random Insulin 43.2 uIU/mL (<=19.6) H 11/02/20 19:19 Proinsulin See scanned result 11/02/20 19:19 C-Peptide 6.23 ng/mL (0.80-3.85) H 11/02/20 19:19 Lactic Acid 1.90 mmol/L (0.7-2.0) 10/04/20 22:00 Uric Acid 7.5 mg/dL (3.5-7.6) 10/02/20 13:05 Calcium 9.6 mg/dL (8.4-10.2) 03/16/21 04:42 Ionized Calcium 4.4 mg/dL (4.8-5.6) L 10/07/20 21:00 Phosphorus 4.60 mg/dL (2.5-4.5) H 11/13/20 10:05 Magnesium 2.10 mg/dL (1.7-2.3) 11/13/20 10:05 Total Bilirubin 0.80 mg/dL (0.1-1.2) 03/04/21 04:46 AST 51 units/L (5-40) H 03/04/21 04:46 ALT 53 units/L (7-56) 03/04/21 04:46 Alkaline Phosphatase 117 units/L (35-129) 03/04/21 04:46 Lactate Dehydrogenase 769 units/L (91-180) H 10/02/20 13:05 C-Reactive Protein 0.70 mg/dL (0.00-1.30) 11/11/20 13:50 NT-Pro-B Natriuret Pep 2788 pg/mL (0-450) H 10/04/20 10:00 Total Protein 8.4 g/dL (6.3-8.2) H 03/04/21 04:46 Albumin 4.2 g/dL (3.9-5) 03/04/21 04:46 Albumin/Globulin Ratio 1.0 % 03/04/21 04:46 Procalcitonin < 0.05 ng/mL (<0.15) 03/02/21 02:30 Arterial Blood Glucose 109 mg/dL (65-95) H 10/13/20 07:18 Arterial Blood Ionized Calcium 4.6 mg/dL (4.6-5.3) 10/13/20 07:18 Urine Color Yellow (Yellow) 01/25/21 09:51 Urine Turbidity Cloudy (Clear) 01/25/21 09:51 Urine pH 7.0 (5.0-7.0) 01/25/21 09:51 Ur Specific [place] 1.011 (1.003-1.030) 01/25/21 09:51 Urine Protein <15 mg/dl mg/dL (Negative) 01/25/21 09:51 Urine Glucose (UA) Neg mg/dL (Negative) 01/25/21 09:51 Urine Ketones Neg mg/dL (Negative) 01/25/21 09:51 Urine Blood Neg (Negative) 01/25/21 09:51 Urine Nitrite Neg (Negative) 01/25/21 09:51 Urine Bilirubin Neg (Negative) 01/25/21 09:51 Urine Urobilinogen < 2.0 mg/dL (<2.0) 01/25/21 09:51 Ur Leukocyte Esterase Neg (Negative) 01/25/21 09:51 Urine WBC (Auto) 6.0 /HPF (0.0-6.0) 01/25/21 09:51 Urine RBC (Auto) 3.0 /HPF (0.0-6.0) 01/25/21 09:51 U Epithel Cells (Auto) < 1.0 /HPF (0-13.0) 01/25/21 09:51 Urine Bacteria (Auto) 1+ /HPF (Negative) 01/18/21 08:47 Urine WBC Clumps 3+ /HPF 11/11/20 13:50 Calcium Oxalate Crystal Few 11/11/20 13:50 Urine Mucus Few /HPF 01/25/21 09:51 Urine Yeast (Budding) 2+ /HPF 01/25/21 09:51 Vancomycin Trough 12.6 ug/mL (5.0-20.0) 10/21/20 13:54 Random Vancomycin 10.7 ug/mL (0-40.0) 10/16/20 13:09 Phenytoin 5.7 ug/mL (10.0-20.0) L 10/13/20 07:00 C. difficile Tox (PCR) Positive (Negative) 10/16/20 10:22 Coronavirus (PCR) Negative (Negative) 10/08/20 14:15 Blood Type O POSITIVE 10/02/20 12:50 Antibody Screen Negative 10/02/20 12:50 Crossmatch See Detail 10/02/20 12:50 - Diagnostic Impressions Diagnostic Impressions: Echocardiogram 10/03/20 13:42 Transthoracic Echocardiogram Indication: S/P Cardiac Arrest R/O Cardiomyopathy BP: 133/71 Conclusions *Global left ventricular systolic function is normal. *The estimated ejection fraction is 60-65%. *There is trace of mitral regurgitation. *The right 0heart chambers are both slightly dilated. *There is mild tricuspid regurgitation. *There is mild-moderate pulmonary hypertension. *The right ventricular systolic pressure is calculated at 44 mmHg. *The study quality is technically difficult. Findings Procedure Info: The study quality is technically difficult. The study is technically limited due to patient body habitus. The study was technically limited due to the patient's inability to lay in the left lateral decubitus position. Left Ventricle: The left ventricular chamber size is normal. There is no left ventricular hypertrophy. Global left ventricular systolic function is normal. The estimated ejection fraction is 60-65%. Left Atrium: The left atrial chamber size is normal. Right Ventricle: The right ventricle is slightly dilated. Right Atrium: The right atrium is mildly dilated. Aortic Valve: The aortic valve leaflets are mildly thickened. There is no evidence of aortic regurgitation. There is no evidence of aortic stenosis. Mitral Valve: The mitral valve leaflets are mildly thickened. There is trace of mitral regurgitation. There is no evidence of mitral stenosis. Tricuspid Valve: There is mild tricuspid regurgitation. The right ventricular systolic pressure is calculated at 44 mmHg. There is evidence of mild pulmonary hypertension. Pulmonic Valve: There is trace pulmonic regurgitation. Pericardium: There is no pericardial effusion. Aorta: There is no dilatation of the ascending aorta. There is no dilatation of the aortic root. Venous: The inferior vena cava is dilated. Measurements Chambers 2D Name Value Normal Range IVSd (2D) 1 cm (0.6 - 1.1) LVPWd (2D) 1.01 cm (0.6 - 1.1) LVIDd (2D) 4.58 cm (3.7 - 5.6) LVIDs (2D) 3.17 cm (2 - 3.8) LV FS (2D) 30.93 % - EF Teichholz (2D) 58.66 % - Ao root diameter (2D) 2.94 cm (2 - 3.7) Volumes/Mass Name Value Normal Range LA ESV SP 4CH (A/L) 72.82 ml - LA ESV SP 2CH (A/L) 66.86 ml - LA ESV BP (A/L) 74.49 ml - LA ESV SP 4CH (MOD) 71.03 ml - LA ESV SP 2CH (MOD) 64.3 ml - LV EDV SP 4CH (MOD) 98.82 ml - LV ESV SP 4CH (MOD) 24.8 ml - EF SP 4CH (MOD) 74.9 % - LV EDV SP 2CH (MOD) 86.1 ml - LV ESV SP 2CH (MOD) 36.93 ml - EF SP 2CH (MOD) 57.11 % - LV EDV BP 94.4 ml - LV ESV BP 32.66 ml - BP EF (MOD) 65.4 % - Diastolic/Systolic Function Name Value Normal Range MV E-wave Vmax 1.04 m/sec - MV deceleration time 160.46 msec - MV A-wave Vmax 0.92 m/sec - MV E:A ratio 1.14 ratio - Aortic Valve Name Value Normal Range AV Vmax 2.12 m/sec - AV VTI 22.37 cm - AV peak gradient 17.95 mmHg - AV mean gradient 7.29 mmHg - LVOT diameter 2.01 cm - LVOT Vmax 1.8 m/sec - LVOT VTI 27.17 cm - LVOT peak gradient 12.91 mmHg - LVOT mean gradient 6.83 mmHg - SV LVOT 86.42 ml - ANITA (continuity Vmax) 2.7 cm2 - ANITA (continuity VTI) 3.86 cm2 - Ascending Ao 3.18 cm - Tricuspid Valve Name Value Normal Range TV E-wave Vmax 0.88 m/sec - TR Vmax 3.01 m/sec - TR peak gradient 36.27 mmHg - RAP 8 mmHg - RVSP 44 mmHg - IVC diameter 2.65 cm (1.2 - 2.3) Pulmonic Valve/Qp:Qs Name Value Normal Range PV Vmax 1.22 m/sec - PV peak gradient 5.91 mmHg - RVOT Vmax 0.87 m/sec - RVOT VTI 13.32 cm - RVOT peak gradient 3 mmHg - PV acceleration time 110.37 msec - [place]/IV: Voiding Method Incontinent IV Catheter Type [Right Foot] INT / Saline Lock IV Catheter Type [Left Forearm Peripheral IV ] IV Catheter Type [Left Wrist] INT / Saline Lock IV Catheter Type [Right Hand] INT / Saline Lock IV Catheter Type [Right INT / Saline Lock Antecubital] IV Catheter Type [Right Upper Mid-line arm] IV Catheter Type [Left Triple Lumen Cath Internal Jugular] IV Catheter Type [Left Hand] Peripheral IV IV Catheter Type [Left Peripheral IV Antecubital] Active Medications - Current Medications Current Medications: Generic Name Dose Route Start Last Admin Trade Name Freq PRN Reason Stop Dose Admin Acetaminophen 650 mg 10/05/20 16:34 04/11/21 12:07 Acetaminophen 325 Mg/10.15 Ml Oral Liqd Unit Dose FEEDTUBE 650 mg Q6H PRN Administration Non Cardiac Pain or Temp>100.5 Albuterol 2.5 mg 11/05/20 13:03 11/06/20 13:04 Albuterol 2.5 Mg/3 Ml Nebu IH 2.5 mg Q4HRT PRN Administration Shortness Of Breath Alprazolam 0.25 mg 01/20/21 13:33 04/14/21 20:14 Alprazolam 0.25 Mg Tab PO 0.25 mg Q8H PRN Administration Anxiety Lipase/Protease/Amylase 1 each 10/05/20 11:09 Lipase 10,500/Protease 25,000/Amylase 43,750 (Units) Dr Barakat FEEDTUBE PRN PRN For Clogged Feeding Tube Enoxaparin Sodium 40 mg 10/22/20 10:00 04/14/21 09:05 Enoxaparin 40 Mg/0.4 Ml Inj SUB-Q 40 mg DAILY ERINN Administration Protocol Famotidine 20 mg 10/07/20 10:00 04/14/21 22:26 Famotidine 20 Mg Tab PO 20 mg BID ERINN Administration Hydrophilic Ointment 1 applic 01/03/21 13:00 02/16/21 09:56 Lip Therapy Vaseline TP 1 applic DIRECT PRN Administration Dry Lips Metoprolol Tartrate 50 mg 02/02/21 16:01 04/15/21 00:18 Metoprolol Tartrate 25 Mg Tab PO 50 mg BID ERINN Administration Morphine Sulfate 2 mg 01/20/21 13:33 Morphine 2 Mg/1 Ml Inj IV Q4H PRN Pain, Moderate (4-6) Ondansetron HCl 4 mg 02/10/21 11:38 02/10/21 13:18 Ondansetron 4 Mg/2 Ml Inj IV 4 mg Q4H PRN Administration Nausea And Vomiting Simple Syrup 15 ml 10/05/20 11:09 Simple Syrup 15 Ml FEEDTUBE PRN PRN Hypoglycemia Simple Syrup 30 ml 10/05/20 11:09 03/23/21 06:11 Simple Syrup 15 Ml FEEDTUBE 30 ml PRN PRN Administration Hypoglycemia Sodium Bicarbonate 325 mg 10/05/20 11:09 12/16/20 08:19 Sodium Bicarbonate 325 Mg Tab FEEDTUBE 325 mg PRN PRN Administration For Clogged Feeding Tube Nutrition/Malnutrition Assess - Dietary Evaluation Nutrition/Malnutrition Findings: Nutrition Notes Start: 10/04/20 11:13 Freq: Status: Active Protocol: Document 04/14/21 12:04 CW (Rec: 04/14/21 12:11 CW [id number]) Nutrition Notes Initial or Follow up Reassessment Other Pertinent Diagnosis s/p cardiac arrest x 2, anoxic brain injury Current Diet TF - Promote at 65ml/hr Labs/Tests no new labs since 03/16 Pertinent Medications Reviewed Height 5 ft 8 in Weight 86.2 kg [place] Body Weight (kg) 63.63 BMI 28.8 Weight change and time frame weight moderately stable Weight Status Overweight Subjective/Other Information FU for TF tolerance. TF running at goal and pt tolerating. Percent of energy/protein needs met: 100%/100% Burn Absent Trauma Absent GI Symptoms None Difficulty In Swallowing,Chewing Current % PO Negligible Minimum of two criteria No physical signs of malnutrition #1 Nutrition Diagnosis Inadequate oral intake Diagnosis Progress(for reassessment Continues documentation) Is patient on ventilator? No Is Patient Ambulatory and/or Out of Bed No REE-(Ralls-St. Jeor-confined to bed) [phone] Calculation [facility]ations [facility] Additional Notes Pro needs 0.8-1g/k-89g/ day Fluid needs 1ml/kcal Nutrition Intervention Change Diet Order: Continue Nutrition Support: Continue Promote at 65 mL/hr Flush 100 ml q4h Kcal 1,560 Protein (gm) 98 Fluid (mL) 1,309 Goal #1 TF tolerance Goal #2 TF to meet at least 75% estimated energy and protein needs. Follow-Up By: 04/16/21 Additional Comments F/U for stable labs CMP in AM
[2021-04-15] MEDS: ENOXAPARIN 40 MG/0.4 ML INJ SUB-Q SCH (15:02)
[2021-04-15] MEDS: ACETAMINOPHEN 325 MG/10.15 ML ORAL LIQD UNIT DOSE FEEDTUBE PRN (15:02)
[2021-04-15] MEDS: ALPRAZolam 0.25 MG TAB PO PRN ×2 (15:04→21:27)
[2021-04-15] MEDS: FAMOTIDINE 20 MG TAB PO SCH ×2 (15:05→21:24)
[2021-04-16] MEDS: METOPROLOL TARTRATE 25 MG TAB PO SCH ×2 (09:42→22:56)
[2021-04-16] MEDS: FAMOTIDINE 20 MG TAB PO SCH ×2 (09:42→22:58)
[2021-04-16] MEDS: ENOXAPARIN 40 MG/0.4 ML INJ SUB-Q SCH (09:42)
[2021-04-16 10:24] LABS: Alanine Aminotransferase 39 units/L (7-56); Albumin 4.3 g/dL (3.9-5); Blood Urea Nitrogen 14 mg/dL (7-17); Calcium 10.1 mg/dL (8.4-10.2); Hemolysis Index 36
[2021-04-16 10:25] LABS: BUN/Creatinine Ratio 28
--- NOTE | 2021-04-16 17:40 | Progress Note ---
Assessment and Plan Assessment and plan: --Status post cardiac arrest; 10/07/2020 , status post CPR --Acute hypoxic brain injury; Supportive care, closely monitor --Acute hypoxic respiratory failure: Tracheostomy on T-piece , today on 4.5 L oxygen, saturating 100% Supportive care, Pulmonary critical following COVID-19 negative C. difficile positive; Patient on contact isolation Completed treatment --Afebrile: Blood, urine, tracheal aspirate cultures New cultures negative to date Monitor off antibiotics Closely monitor --Sepsis; received antibiotics Continue to monitor off antibiotics ID following --COVID-19 test negative; 10/08/2020 --C. difficile colitis test; positive; 10/16/2020 --Acute metabolic encephalopathy --Acute kidney injury; vasomotor nephropathy Resolved, renal function within normal limits, closely monitor --Shock; monitor of pressors Blood pressures reasonable level --DIC; sepsis, septic shock, resolved --History of preeclampsia; / hemorrhage Status post hysterectomy --History of C. difficile colitis; completed oral vancomycin --DVT/SVT and right upper extremity Very poor prognosis, Consults recommendations noted and appreciated We will closely monitor the patient and adjust management as needed Plan of care reviewed with the patient's nurse. Waiting for residential facility placement Brief history/daily hospital course 30 y/o female patient with Eclampsia/help syndrome, s/p emergent section with DIC, hemorrhage, supracervical abdominal hysterectomy, acute respiratory failure , tracheostomy on T-piece with morbid obesity, s/p cardiac arrest 12/08/2019 status post CPR per ACLS, acute hypoxic brain injury Acute kidney injury improved, severe shock requiring pressors, DIC septic shock improved, history of C. difficile colitis completed treatment with vancomycin. Tracheostomy on T-piece, continues to require 5 L of oxygen. Herpetic flareup, ID started treatment with antibiotics, patient is waiting for SNF placement DC planning per case management 10/02/2020-03/15/2021 daily hospital course reviewed 03/16/2021; Awaiting placement. Patient is on PEG tube feeding. Saturating well on room air. Patient is mildly tachycardic. Pending placement. 03/17/2021; Awaiting placement. Patient is on PEG tube feeding. Saturating well on room air. Patient is mildly tachycardic. Pending placement. 03/18/2021; awaiting placement. 03/19/2021; awaiting placement. 03/20/2021; awaiting placement. 03/21/21; awaiting placement. 03/22/2021; Awaiting placement. Patient is on PEG tube feeding. Saturating well on room air. Patient is mildly tachycardic. Pending placement. 03/23/2021; multiple social issues, awaiting LTAC placement 03/24/2021; pending placement. Clinically no change, I discussed with patient's mother extensively, she had numerous questions answered all of them She requested a repeat CT head as she noticed significant change in her daughter s level of consciousness. Will check CT head without contrast 03/25/2021; I discussed with patient's mother extensively yesterday 03/24/2021, she requested a repeat CT scan as she feels that patient is responding f/u CT head without contrast 03/24/2021; no acute abnormalities, pronounced diffuse cerebral atrophy. 03/26/2021; awaiting placement, multiple social issues, I called and discussed CT head findings with patient's mother Ms. Santiago She verbalized understanding. Disposition; pending placement 03/30/2021 I resumed service today; Clinically no change, awaiting placement, multiple social issues 03/31/2021; multiple social issues, awaiting placement 04/01/2021; clinically no change, social issues, awaiting placement 04/02/2021; patient response to some sound by moving her head, not purposeful Did not respond to communication, awaiting placement 04/03/2021; pending placement social issues, 04/04/2021; clinically no change, awaiting placement 04/05/2021; awaiting placement, clinically stable 04/06/2021; clinically no change, patient is stable Awaiting placement, multiple social issues 04/07/2021; awaiting placement social issues. 04/09/2021; patient saturates well on room air PEG tube/PEG feeds, hemodynamically and clinically stable Stable for discharge home with home health versus placement 04/10/21 Awaiting placement 04/11/21 Aawaiting placement 04/12/2021 Awaiting placement 04/13/2021; patient is more alert and awake, noncommunicative Spontaneous opening eyes, vital signs noted, awaiting placement Social issues 04/14/2021; clinically no change Awaiting placement 04/16/2021; patient is awaiting placement History Interval history: I have seen and evaluated the patient at the bedside today clinically no change, Patient is noncommunicative Not in acute distress, Vital signs noted Hospitalist Physical - Constitutional Vitals: Temp Pulse Resp BP Pulse Ox 98.3 F 79 16 117/74 96 04/16/21 04:29 04/16/21 09:42 04/16/21 04:29 04/16/21 09:42 04/16/21 04:29 General appearance: Present: no acute distress, well-nourished - EENT Eyes: Present: PERRL, EOM intact - Neck Neck: Present: supple, normal ROM - Respiratory Respiratory effort: normal Respiratory: bilateral: diminished, negative: rales, rhonchi, wheezing - Cardiovascular Rhythm: regular Heart Sounds: Present: S1 & S2 - Extremities Extremities: no ischemia, No edema - Abdominal General gastrointestinal: soft, non-tender, non-distended, normal bowel sounds, other (PEG in place) - Integumentary Integumentary: Present: clear, warm - Psychiatric Psychiatric: other (Noncommunicative) - Neurologic Neurologic: other (Noncommunicative) HEART Score - HEART Score Age: < 45 Risk factors: 1-2 risk factors - Critical Actions Critical Actions: >7 pts:50-65% risk of adverse cardiac event. Early invasive measures Results - Labs CBC & Chem 7: 03/16/21 04:42 04/16/21 08:37 Labs: Laboratory Last Values WBC 9.4 K/mm3 (4.5-11.0) 03/16/21 04:42 RBC 5.06 M/mm3 (3.65-5.03) H 03/16/21 04:42 Hgb 12.2 gm/dl (10.1-14.3) 03/16/21 04:42 Hgb Comment See scanned result 10/04/20 Unknown Hct 37.6 % (30.3-42.9) 03/16/21 04:42 MCV 74 fl (79-97) L 03/16/21 04:42 MCH 24 pg (28-32) L 03/16/21 04:42 MCHC 33 % (30-34) 03/16/21 04:42 RDW 15.8 % (13.2-15.2) H 03/16/21 04:42 Plt Count 311 K/mm3 (140-440) 03/16/21 04:42 Lymph % (Auto) 33.5 % (13.4-35.0) 03/16/21 04:42 [place] % (Auto) 8.1 % (0.0-7.3) H 03/16/21 04:42 Eos % (Auto) 1.7 % (0.0-4.3) 03/16/21 04:42 Baso % (Auto) 0.5 % (0.0-1.8) 03/16/21 04:42 Lymph # (Auto) 3.1 K/mm3 (1.2-5.4) 03/16/21 04:42 [place] # (Auto) 0.8 K/mm3 (0.0-0.8) 03/16/21 04:42 Eos # (Auto) 0.2 K/mm3 (0.0-0.4) 03/16/21 04:42 Baso # (Auto) 0.0 K/mm3 (0.0-0.1) 03/16/21 04:42 Add Manual Diff Complete 02/09/21 10:59 Total Counted 100 02/09/21 10:59 Seg Neutrophils % 56.2 % (40.0-70.0) 03/16/21 04:42 Seg Neuts % (Manual) 58.0 % (40.0-70.0) 02/09/21 10:59 Band Neutrophils % 2.0 % 10/15/20 05:50 Lymphocytes % (Manual) 29.0 % (13.4-35.0) 02/09/21 10:59 Reactive Lymphs % (Man) 1.0 % 10/02/20 12:18 Monocytes % (Manual) 13.0 % (0.0-7.3) H 02/09/21 10:59 Eosinophils % (Manual) 1.0 % (0.0-4.3) 10/29/20 07:56 Myelocytes % 2.0 % 10/02/20 13:05 Metamyelocytes % 1.0 % 10/14/20 04:00 Nucleated RBC % Not Reportable 02/09/21 10:59 Seg Neutrophils # 5.3 K/mm3 (1.8-7.7) 03/16/21 04:42 Seg Neutrophils # Man 3.7 K/mm3 (1.8-7.7) 02/09/21 10:59 Band Neutrophils # 0.0 K/mm3 02/09/21 10:59 Lymphocytes # (Manual) 1.8 K/mm3 (1.2-5.4) 02/09/21 10:59 Abs React Lymphs (Man) 0.0 K/mm3 02/09/21 10:59 Monocytes # (Manual) 0.8 K/mm3 (0.0-0.8) 02/09/21 10:59 Eosinophils # (Manual) 0.0 K/mm3 (0.0-0.4) 02/09/21 10:59 Basophils # (Manual) 0.0 K/mm3 (0.0-0.1) 02/09/21 10:59 Metamyelocytes # 0.0 K/mm3 02/09/21 10:59 Myelocytes # 0.0 K/mm3 02/09/21 10:59 Promyelocytes # 0.0 K/mm3 02/09/21 10:59 Blast Cells # 0.0 K/mm3 02/09/21 10:59 WBC Morphology Not Reportable 02/09/21 10:59 Hypersegmented Neuts Not Reportable 02/09/21 10:59 Hyposegmented Neuts Not Reportable 02/09/21 10:59 Hypogranular Neuts Not Reportable 02/09/21 10:59 Smudge Cells Not Reportable 02/09/21 10:59 Toxic Granulation Not Reportable 02/09/21 10:59 Toxic Vacuolation Not Reportable 02/09/21 10:59 Dohle Bodies Not Reportable 02/09/21 10:59 Pelger-Huet Anomaly Not Reportable 02/09/21 10:59 Ester Rods Not Reportable 02/09/21 10:59 Platelet Estimate Consistent w auto 02/09/21 10:59 Clumped Platelets Not Reportable 02/09/21 10:59 Plt Clumps, EDTA Not Reportable 02/09/21 10:59 Large Platelets Few 02/09/21 10:59 Giant Platelets Not Reportable 02/09/21 10:59 Platelet Satelliting Not Reportable 02/09/21 10:59 Plt Morphology Comment Not Reportable 02/09/21 10:59 RBC Morphology Not Reportable 02/09/21 10:59 Dimorphic RBCs Not Reportable 02/09/21 10:59 Polychromasia Not Reportable 02/09/21 10:59 Hypochromasia 1+ 02/09/21 10:59 Poikilocytosis Not Reportable 02/09/21 10:59 Anisocytosis Not Reportable 02/09/21 10:59 Microcytosis Not Reportable 02/09/21 10:59 Macrocytosis Not Reportable 02/09/21 10:59 Spherocytes Not Reportable 02/09/21 10:59 Pappenheimer Bodies Not Reportable 02/09/21 10:59 Sickle Cells Not Reportable 02/09/21 10:59 Target Cells Not Reportable 02/09/21 10:59 Tear Drop Cells Not Reportable 02/09/21 10:59 Ovalocytes Not Reportable 02/09/21 10:59 Stomatocytes Few 10/14/20 04:00 Helmet Cells Not Reportable 02/09/21 10:59 [place] Bodies Not Reportable 02/09/21 10:59 [place] Rings Not Reportable 02/09/21 10:59 Antoine Cells Not Reportable 02/09/21 10:59 Bite Cells Not Reportable 02/09/21 10:59 Crenated Cell Not Reportable 02/09/21 10:59 Elliptocytes Not Reportable 02/09/21 10:59 Acanthocytes (Spur) Not Reportable 02/09/21 10:59 Rouleaux Not Reportable 02/09/21 10:59 Hemoglobin C Crystals Not Reportable 02/09/21 10:59 Schistocytes Not Reportable 02/09/21 10:59 Malaria parasites Not Reportable 02/09/21 10:59 Sickle Cell Solubility See scanned result 10/04/20 Unknown Hemoglobin A See scanned result 10/04/20 Unknown Hemoglobin A2 See scanned result 10/04/20 Unknown Hemoglobin A2 Prime See scanned result 10/04/20 Unknown Hemoglobin C See scanned result 10/04/20 Unknown Hemoglobin D See scanned result 10/04/20 Unknown Hemoglobin E See scanned result 10/04/20 Unknown Hgb F Diffential Stain See scanned result 10/04/20 Unknown Hemoglobin F Quant See scanned result 10/04/20 Unknown Hemoglobin G See scanned result 10/04/20 Unknown Hemoglobin S See scanned result 10/04/20 Unknown Hemoglobin [place] See scanned result 10/04/20 Unknown Hemoglobin [place] See scanned result 10/04/20 Unknown Hemoglobin Analilia See scanned result 10/04/20 Unknown Variant Hemoglobin See scanned result 10/04/20 Unknown Abnorm Hgb IEF Confirm See scanned result 10/04/20 Unknown Hemoglobin Interpret See scanned result 10/04/20 Unknown Hemoglobinopathy Note See scanned result 10/04/20 Unknown Sharad Bodies Not Reportable 02/09/21 10:59 Hem Pathologist Commnt No 02/09/21 10:59 PT 13.6 Sec. (12.2-14.9) 10/21/20 13:54 INR 1.06 (0.87-1.13) 10/21/20 13:54 APTT 31.6 Sec. (24.2-36.6) 10/03/20 00:40 Fibrinogen 336 mg/dl (211-480) 10/04/20 10:00 D-Dimer 1974.47 ng/mlDDU (0-234) H 11/11/20 13:50 ABG pH 7.459 pH Units (7.350-7.450) H 10/26/20 10:30 POC ABG pCO2 20.7 mmHg (32.0-48.0) L 10/13/20 07:18 ABG pCO2 32.4 mm Hg 10/26/20 10:30 POC ABG pO2 137.9 mmHg (83-108) H 10/13/20 07:18 ABG pO2 112.2 mm Hg (80.0-90.0) H 10/26/20 10:30 POC ABG HCO3 14.8 10/13/20 07:18 ABG HCO3 22.5 mmol/L (20.0-26.0) 10/26/20 10:30 ABG O2 Saturation 98.2 % (95.0-99.0) 10/26/20 10:30 ABG O2 Content 18.5 (0.0-44) 10/26/20 10:30 POC ABG Base Excess -6.9 10/13/20 07:18 ABG Base Excess -0.6 mmol/L (-2.0-3.0) 10/26/20 10:30 ABG Hemoglobin 13.5 gm/dl (12.0-16.0) 10/26/20 10:30 ABG Oxyhemoglobin 98.3 (94-98) H 10/13/20 07:18 ABG Carboxyhemoglobin 1.3 % (0.0-5.0) 10/26/20 10:30 ABG Methemoglobin 0.5 % (0.0-1.5) 10/26/20 10:30 ABG Sodium 135.9 mmol/L (136.0-145.0) L 10/13/20 07:18 ABG Potassium 3.7 mmol/L (3.40-4.50) 10/13/20 07:18 ABG Chloride 111.0 mmol/L (98-107) H 10/13/20 07:18 ABG Glucose 109 mg/dL (65-95) H 10/13/20 07:18 VBG pH 6.949 (7.320-7.420) L* 10/02/20 Unknown Oxyhemoglobin 96.5 % (95.0-99.0) 10/26/20 10:30 Carboxyhemoglobin 0.3 (0.5-1.5) L 10/13/20 07:18 FiO2 25 % 10/26/20 10:30 Sodium 140 mmol/L (137-145) 04/16/21 08:37 Potassium 5.0 mmol/L (3.6-5.0) 04/16/21 08:37 Chloride 101.6 mmol/L (98-107) 04/16/21 08:37 Carbon Dioxide 24 mmol/L (22-30) 04/16/21 08:37 Anion Gap 19 mmol/L 04/16/21 08:37 BUN 14 mg/dL (7-17) 04/16/21 08:37 Creatinine 0.5 mg/dL (0.6-1.2) L 04/16/21 08:37 Estimated GFR > 60 ml/min 04/16/21 08:37 BUN/Creatinine Ratio 28 % 04/16/21 08:37 Glucose 78 mg/dL (65-100) 04/16/21 08:37 POC Glucose 104 mg/dL (70-105) 04/16/21 11:22 Random Insulin 43.2 uIU/mL (<=19.6) H 11/02/20 19:19 Proinsulin See scanned result 11/02/20 19:19 C-Peptide 6.23 ng/mL (0.80-3.85) H 11/02/20 19:19 Lactic Acid 1.90 mmol/L (0.7-2.0) 10/04/20 22:00 Uric Acid 7.5 mg/dL (3.5-7.6) 10/02/20 13:05 Calcium 10.1 mg/dL (8.4-10.2) 04/16/21 08:37 Ionized Calcium 4.4 mg/dL (4.8-5.6) L 10/07/20 21:00 Phosphorus 4.60 mg/dL (2.5-4.5) H 11/13/20 10:05 Magnesium 2.10 mg/dL (1.7-2.3) 11/13/20 10:05 Total Bilirubin 0.40 mg/dL (0.1-1.2) 04/16/21 08:37 AST 45 units/L (5-40) H 04/16/21 08:37 ALT 39 units/L (7-56) 04/16/21 08:37 Alkaline Phosphatase 145 units/L (35-129) H 04/16/21 08:37 Lactate Dehydrogenase 769 units/L (91-180) H 10/02/20 13:05 C-Reactive Protein 0.70 mg/dL (0.00-1.30) 11/11/20 13:50 NT-Pro-B Natriuret Pep 2788 pg/mL (0-450) H 10/04/20 10:00 Total Protein 7.4 g/dL (6.3-8.2) 04/16/21 08:37 Albumin 4.3 g/dL (3.9-5) 04/16/21 08:37 Albumin/Globulin Ratio 1.4 % 04/16/21 08:37 Procalcitonin < 0.05 ng/mL (<0.15) 03/02/21 02:30 Arterial Blood Glucose 109 mg/dL (65-95) H 10/13/20 07:18 Arterial Blood Ionized Calcium 4.6 mg/dL (4.6-5.3) 10/13/20 07:18 Urine Color Yellow (Yellow) 01/25/21 09:51 Urine Turbidity Cloudy (Clear) 01/25/21 09:51 Urine pH 7.0 (5.0-7.0) 01/25/21 09:51 Ur Specific [place] 1.011 (1.003-1.030) 01/25/21 09:51 Urine Protein <15 mg/dl mg/dL (Negative) 01/25/21 09:51 Urine Glucose (UA) Neg mg/dL (Negative) 01/25/21 09:51 Urine Ketones Neg mg/dL (Negative) 01/25/21 09:51 Urine Blood Neg (Negative) 01/25/21 09:51 Urine Nitrite Neg (Negative) 01/25/21 09:51 Urine Bilirubin Neg (Negative) 01/25/21 09:51 Urine Urobilinogen < 2.0 mg/dL (<2.0) 01/25/21 09:51 Ur Leukocyte Esterase Neg (Negative) 01/25/21 09:51 Urine WBC (Auto) 6.0 /HPF (0.0-6.0) 01/25/21 09:51 Urine RBC (Auto) 3.0 /HPF (0.0-6.0) 01/25/21 09:51 U Epithel Cells (Auto) < 1.0 /HPF (0-13.0) 01/25/21 09:51 Urine Bacteria (Auto) 1+ /HPF (Negative) 01/18/21 08:47 Urine WBC Clumps 3+ /HPF 11/11/20 13:50 Calcium Oxalate Crystal Few 11/11/20 13:50 Urine Mucus Few /HPF 01/25/21 09:51 Urine Yeast (Budding) 2+ /HPF 01/25/21 09:51 Vancomycin Trough 12.6 ug/mL (5.0-20.0) 10/21/20 13:54 Random Vancomycin 10.7 ug/mL (0-40.0) 10/16/20 13:09 Phenytoin 5.7 ug/mL (10.0-20.0) L 10/13/20 07:00 C. difficile Tox (PCR) Positive (Negative) 10/16/20 10:22 Coronavirus (PCR) Negative (Negative) 10/08/20 14:15 Blood Type O POSITIVE 10/02/20 12:50 Antibody Screen Negative 10/02/20 12:50 Crossmatch See Detail 10/02/20 12:50 - Diagnostic Impressions Diagnostic Impressions: Echocardiogram 10/03/20 13:42 Transthoracic Echocardiogram Indication: S/P Cardiac Arrest R/O Cardiomyopathy BP: 133/71 Conclusions *Global left ventricular systolic function is normal. *The estimated ejection fraction is 60-65%. *There is trace of mitral regurgitation. *The right 0heart chambers are both slightly dilated. *There is mild tricuspid regurgitation. *There is mild-moderate pulmonary hypertension. *The right ventricular systolic pressure is calculated at 44 mmHg. *The study quality is technically difficult. Findings Procedure Info: The study quality is technically difficult. The study is technically limited due to patient body habitus. The study was technically limited due to the patient's inability to lay in the left lateral decubitus position. Left Ventricle: The left ventricular chamber size is normal. There is no left ventricular hypertrophy. Global left ventricular systolic function is normal. The estimated ejection fraction is 60-65%. Left Atrium: The left atrial chamber size is normal. Right Ventricle: The right ventricle is slightly dilated. Right Atrium: The right atrium is mildly dilated. Aortic Valve: The aortic valve leaflets are mildly thickened. There is no evidence of aortic regurgitation. There is no evidence of aortic stenosis. Mitral Valve: The mitral valve leaflets are mildly thickened. There is trace of mitral regurgitation. There is no evidence of mitral stenosis. Tricuspid Valve: There is mild tricuspid regurgitation. The right ventricular systolic pressure is calculated at 44 mmHg. There is evidence of mild pulmonary hypertension. Pulmonic Valve: There is trace pulmonic regurgitation. Pericardium: There is no pericardial effusion. Aorta: There is no dilatation of the ascending aorta. There is no dilatation of the aortic root. Venous: The inferior vena cava is dilated. Measurements Chambers 2D Name Value Normal Range IVSd (2D) 1 cm (0.6 - 1.1) LVPWd (2D) 1.01 cm (0.6 - 1.1) LVIDd (2D) 4.58 cm (3.7 - 5.6) LVIDs (2D) 3.17 cm (2 - 3.8) LV FS (2D) 30.93 % - EF Teichholz (2D) 58.66 % - Ao root diameter (2D) 2.94 cm (2 - 3.7) Volumes/Mass Name Value Normal Range LA ESV SP 4CH (A/L) 72.82 ml - LA ESV SP 2CH (A/L) 66.86 ml - LA ESV BP (A/L) 74.49 ml - LA ESV SP 4CH (MOD) 71.03 ml - LA ESV SP 2CH (MOD) 64.3 ml - LV EDV SP 4CH (MOD) 98.82 ml - LV ESV SP 4CH (MOD) 24.8 ml - EF SP 4CH (MOD) 74.9 % - LV EDV SP 2CH (MOD) 86.1 ml - LV ESV SP 2CH (MOD) 36.93 ml - EF SP 2CH (MOD) 57.11 % - LV EDV BP 94.4 ml - LV ESV BP 32.66 ml - BP EF (MOD) 65.4 % - Diastolic/Systolic Function Name Value Normal Range MV E-wave Vmax 1.04 m/sec - MV deceleration time 160.46 msec - MV A-wave Vmax 0.92 m/sec - MV E:A ratio 1.14 ratio - Aortic Valve Name Value Normal Range AV Vmax 2.12 m/sec - AV VTI 22.37 cm - AV peak gradient 17.95 mmHg - AV mean gradient 7.29 mmHg - LVOT diameter 2.01 cm - LVOT Vmax 1.8 m/sec - LVOT VTI 27.17 cm - LVOT peak gradient 12.91 mmHg - LVOT mean gradient 6.83 mmHg - SV LVOT 86.42 ml - ANITA (continuity Vmax) 2.7 cm2 - ANITA (continuity VTI) 3.86 cm2 - Ascending Ao 3.18 cm - Tricuspid Valve Name Value Normal Range TV E-wave Vmax 0.88 m/sec - TR Vmax 3.01 m/sec - TR peak gradient 36.27 mmHg - RAP 8 mmHg - RVSP 44 mmHg - IVC diameter 2.65 cm (1.2 - 2.3) Pulmonic Valve/Qp:Qs Name Value Normal Range PV Vmax 1.22 m/sec - PV peak gradient 5.91 mmHg - RVOT Vmax 0.87 m/sec - RVOT VTI 13.32 cm - RVOT peak gradient 3 mmHg - PV acceleration time 110.37 msec - [place]/IV: Voiding Method Incontinent IV Catheter Type [Right Foot] INT / Saline Lock IV Catheter Type [Left Forearm Peripheral IV ] IV Catheter Type [Left Wrist] INT / Saline Lock IV Catheter Type [Right Hand] INT / Saline Lock IV Catheter Type [Right INT / Saline Lock Antecubital] IV Catheter Type [Right Upper Mid-line arm] IV Catheter Type [Left Triple Lumen Cath Internal Jugular] IV Catheter Type [Left Hand] Peripheral IV IV Catheter Type [Left Peripheral IV Antecubital] Active Medications - Current Medications Current Medications: Generic Name Dose Route Start Last Admin Trade Name Freq PRN Reason Stop Dose Admin Acetaminophen 650 mg 10/05/20 16:34 04/15/21 15:02 Acetaminophen 325 Mg/10.15 Ml Oral Liqd Unit Dose FEEDTUBE 650 mg Q6H PRN Administration Non Cardiac Pain or Temp>100.5 Albuterol 2.5 mg 11/05/20 13:03 11/06/20 13:04 Albuterol 2.5 Mg/3 Ml Nebu IH 2.5 mg Q4HRT PRN Administration Shortness Of Breath Alprazolam 0.25 mg 01/20/21 13:33 04/15/21 21:27 Alprazolam 0.25 Mg Tab PO 0.25 mg Q8H PRN Administration Anxiety Lipase/Protease/Amylase 1 each 10/05/20 11:09 Lipase 10,500/Protease 25,000/Amylase 43,750 (Units) Dr Yuval GASCA PRN PRN For Clogged Feeding Tube Enoxaparin Sodium 40 mg 10/22/20 10:00 04/16/21 09:42 Enoxaparin 40 Mg/0.4 Ml Inj SUB-Q 40 mg DAILY ERINN Administration Protocol Famotidine 20 mg 10/07/20 10:00 04/16/21 09:42 Famotidine 20 Mg Tab PO 20 mg BID ERINN Administration Hydrophilic Ointment 1 applic 01/03/21 13:00 02/16/21 09:56 Lip Therapy Vaseline TP 1 applic DIRECT PRN Administration Dry Lips Metoprolol Tartrate 50 mg 02/02/21 16:01 04/16/21 09:42 Metoprolol Tartrate 25 Mg Tab PO 50 mg BID ERINN Administration Morphine Sulfate 2 mg 01/20/21 13:33 Morphine 2 Mg/1 Ml Inj IV Q4H PRN Pain, Moderate (4-6) Ondansetron HCl 4 mg 02/10/21 11:38 02/10/21 13:18 Ondansetron 4 Mg/2 Ml Inj IV 4 mg Q4H PRN Administration Nausea And Vomiting Simple Syrup 15 ml 10/05/20 11:09 Simple Syrup 15 Ml FEEDTUBE PRN PRN Hypoglycemia Simple Syrup 30 ml 10/05/20 11:09 03/23/21 06:11 Simple Syrup 15 Ml FEEDTUBE 30 ml PRN PRN Administration Hypoglycemia Sodium Bicarbonate 325 mg 10/05/20 11:09 12/16/20 08:19 Sodium Bicarbonate 325 Mg Tab FEEDTUBE 325 mg PRN PRN Administration For Clogged Feeding Tube Nutrition/Malnutrition Assess - Dietary Evaluation Nutrition/Malnutrition Findings: Nutrition Notes Start: 10/04/20 11:13 Freq: Status: Active Protocol: Document 04/16/21 12:14 MEY (Rec: 04/16/21 12:16 MEY [id number]) Nutrition Notes Initial or Follow up Reassessment Other Pertinent Diagnosis s/p cardiac arrest x 2, anoxic brain injury Current Diet TF - Promote at 65ml/hr Labs/Tests Cr 0.5 AST 45 Pertinent Medications Reviewed Height 5 ft 8 in Weight 87 kg [place] Body Weight (kg) 63.63 BMI 29.1 Weight Status Overweight Subjective/Other Information FU for TF tolerance and labs. Pt tolerating TF at goal rate. Percent of energy/protein needs met: 100%/100% Burn Absent Trauma Absent GI Symptoms None Difficulty In Swallowing,Chewing Current % PO Negligible Minimum of two criteria No physical signs of malnutrition #1 Nutrition Diagnosis Inadequate oral intake Diagnosis Progress(for reassessment Continues documentation) Is patient on ventilator? No Is Patient Ambulatory and/or Out of Bed No REE-([facility]-confined to bed) 1956.228 Calculation Used for Recommendations [facility] Additional Notes Pro needs 0.8-1g/k-89g/ day Fluid needs 1ml/kcal Nutrition Intervention Change Diet Order: Continue Nutrition Support: Continue Promote at 65 mL/hr Flush 100 ml q4h Kcal 1,560 Protein (gm) 98 Fluid (mL) 1,309 Goal #1 TF tolerance Goal #2 TF to meet at least 75% estimated energy and protein needs. Follow-Up By: 04/23/21 Additional Comments FU for stable TF
--- NOTE | 2021-04-17 09:12 | Progress Note ---
Assessment and Plan Assessment and plan: --Patient had cardiac arrest 10/07/2020 Status post CPR per ACLS protocol --Acute anoxic brain injury; Neurology extensively evaluated Continue supportive care --Acute hypoxic respiratory failure; Saturating room air, supportive care COVID-19 negative C. difficile positive; completed oral vancomycin Patient on contact isolation --Sepsis; completed treatment Continue to monitor off antibiotics ID following --COVID-19 test negative; 10/08/2020 --C. difficile colitis test; positive; 10/16/2020 --Acute metabolic encephalopathy --Acute kidney injury; vasomotor nephropathy Resolved, renal function within normal limits, closely monitor --Shock; requiring pressors, monitor off pressors Blood pressures reasonable level --DIC; sepsis, septic shock, resolved --History of preeclampsia; / hemorrhage Status post hysterectomy --History of C. difficile colitis; completed oral vancomycin --DVT/SVT and right upper extremity Very poor prognosis, Consults recommendations noted and appreciated We will closely monitor the patient and adjust management as needed Plan of care reviewed with the patient's nurse. Waiting for alf facility placement DC planning per case management, Brief history/daily hospital course 30 y/o female patient with Eclampsia/help syndrome, s/p emergent section with DIC, hemorrhage, supracervical abdominal hysterectomy, acute respiratory failure , tracheostomy on T-piece with morbid obesity, s/p cardiac arrest 12/08/2019 status post CPR per ACLS, acute hypoxic brain injury Acute kidney injury improved, severe shock requiring pressors, DIC septic shock improved, history of C. difficile colitis completed treatment with vancomycin. Tracheostomy on T-piece, continues to require 5 L of oxygen. Herpetic flareup, ID started treatment with antibiotics, patient is waiting for SNF placement DC planning per case management 10/02/2020---03/15/2021 daily hospital course reviewed 03/16/2021; Awaiting placement. Patient is on PEG tube feeding. Saturating well on room air. Patient is mildly tachycardic. Pending placement. 03/17/2021; Awaiting placement. Patient is on PEG tube feeding. Saturating well on room air. Patient is mildly tachycardic. Pending placement. 03/18/2021; awaiting placement. 03/19/2021; awaiting placement. 03/20/2021; awaiting placement. 03/21/21; awaiting placement. 03/22/2021; Awaiting placement. Patient is on PEG tube feeding. Saturating well on room air. Patient is mildly tachycardic. Pending placement. 03/23/2021; multiple social issues, awaiting LTAC placement 03/24/2021; pending placement. Clinically no change, I discussed with patient's mother extensively, she had numerous questions answered all of them She requested a repeat CT head as she noticed significant change in her daughter s level of consciousness. Will check CT head without contrast 03/25/2021; I discussed with patient's mother extensively yesterday 03/24/2021, she requested a repeat CT scan as she feels that patient is responding f/u CT head without contrast 03/24/2021; no acute abnormalities, pronounced diffuse cerebral atrophy. 03/26/2021; awaiting placement, multiple social issues, I called and discussed CT head findings with patient's mother Ms. Santiago She verbalized understanding. Disposition; pending placement 03/30/2021 I resumed service today; Clinically no change, awaiting placement, multiple social issues 03/31/2021; multiple social issues, awaiting placement 04/01/2021; clinically no change, social issues, awaiting placement 04/02/2021; patient response to some sound by moving her head, not purposeful Did not respond to communication, awaiting placement 04/03/2021; pending placement social issues, 04/04/2021; clinically no change, awaiting placement 04/05/2021; awaiting placement, clinically stable 04/06/2021; clinically no change, patient is stable Awaiting placement, multiple social issues 04/07/2021; awaiting placement social issues. 04/09/2021; patient saturates well on room air PEG tube/PEG feeds, hemodynamically and clinically stable Stable for discharge home with home health versus placement 04/10/21 Awaiting placement 04/11/21 Aawaiting placement 04/12/2021 Awaiting placement 04/13/2021; patient is more alert and awake, noncommunicative Spontaneous opening eyes, vital signs noted, awaiting placement Social issues 04/14/2021; clinically no change Awaiting placement 04/16/2021; patient is awaiting placement 04/17/2021; clinically no change, awaiting placement Social issues History Interval history: I have seen and examined the patient at the bedside Patient's chart and medications reviewed Patient is alert, noncommunicative, spontaneous opening eyes Vital signs noted Hospitalist Physical - Constitutional Vitals: Temp Pulse Resp BP Pulse Ox 98.4 F 89 16 103/68 97 04/17/21 05:01 04/17/21 05:01 04/17/21 05:01 04/17/21 05:01 04/17/21 05:01 General appearance: Present: no acute distress, well-nourished, obese - EENT Eyes: Present: PERRL, EOM intact - Neck Neck: Present: supple, normal ROM - Respiratory Respiratory effort: normal Respiratory: bilateral: diminished, negative: rales, rhonchi, wheezing - Cardiovascular Rhythm: regular Heart Sounds: Present: S1 & S2 - Extremities Extremities: no ischemia, No edema - Abdominal General gastrointestinal: soft, non-tender, non-distended, normal bowel sounds - Integumentary Integumentary: Present: clear, warm - Psychiatric Psychiatric: other (Noncommunicative) - Neurologic Neurologic: other (Encephalopathic) HEART Score - HEART Score Age: < 45 Risk factors: 1-2 risk factors - Critical Actions Critical Actions: >7 pts:50-65% risk of adverse cardiac event. Early invasive measures Results - Labs CBC & Chem 7: 03/16/21 04:42 04/16/21 08:37 Labs: Laboratory Last Values WBC 9.4 K/mm3 (4.5-11.0) 03/16/21 04:42 RBC 5.06 M/mm3 (3.65-5.03) H 03/16/21 04:42 Hgb 12.2 gm/dl (10.1-14.3) 03/16/21 04:42 Hgb Comment See scanned result 10/04/20 Unknown Hct 37.6 % (30.3-42.9) 03/16/21 04:42 MCV 74 fl (79-97) L 03/16/21 04:42 MCH 24 pg (28-32) L 03/16/21 04:42 MCHC 33 % (30-34) 03/16/21 04:42 RDW 15.8 % (13.2-15.2) H 03/16/21 04:42 Plt Count 311 K/mm3 (140-440) 03/16/21 04:42 Lymph % (Auto) 33.5 % (13.4-35.0) 03/16/21 04:42 Jones % (Auto) 8.1 % (0.0-7.3) H 03/16/21 04:42 Eos % (Auto) 1.7 % (0.0-4.3) 03/16/21 04:42 Baso % (Auto) 0.5 % (0.0-1.8) 03/16/21 04:42 Lymph # (Auto) 3.1 K/mm3 (1.2-5.4) 03/16/21 04:42 Jones # (Auto) 0.8 K/mm3 (0.0-0.8) 03/16/21 04:42 Eos # (Auto) 0.2 K/mm3 (0.0-0.4) 03/16/21 04:42 Baso # (Auto) 0.0 K/mm3 (0.0-0.1) 03/16/21 04:42 Add Manual Diff Complete 02/09/21 10:59 Total Counted 100 02/09/21 10:59 Seg Neutrophils % 56.2 % (40.0-70.0) 03/16/21 04:42 Seg Neuts % (Manual) 58.0 % (40.0-70.0) 02/09/21 10:59 Band Neutrophils % 2.0 % 10/15/20 05:50 Lymphocytes % (Manual) 29.0 % (13.4-35.0) 02/09/21 10:59 Reactive Lymphs % (Man) 1.0 % 10/02/20 12:18 Monocytes % (Manual) 13.0 % (0.0-7.3) H 02/09/21 10:59 Eosinophils % (Manual) 1.0 % (0.0-4.3) 10/29/20 07:56 Myelocytes % 2.0 % 10/02/20 13:05 Metamyelocytes % 1.0 % 10/14/20 04:00 Nucleated RBC % Not Reportable 02/09/21 10:59 Seg Neutrophils # 5.3 K/mm3 (1.8-7.7) 03/16/21 04:42 Seg Neutrophils # Man 3.7 K/mm3 (1.8-7.7) 02/09/21 10:59 Band Neutrophils # 0.0 K/mm3 02/09/21 10:59 Lymphocytes # (Manual) 1.8 K/mm3 (1.2-5.4) 02/09/21 10:59 Abs React Lymphs (Man) 0.0 K/mm3 02/09/21 10:59 Monocytes # (Manual) 0.8 K/mm3 (0.0-0.8) 02/09/21 10:59 Eosinophils # (Manual) 0.0 K/mm3 (0.0-0.4) 02/09/21 10:59 Basophils # (Manual) 0.0 K/mm3 (0.0-0.1) 02/09/21 10:59 Metamyelocytes # 0.0 K/mm3 02/09/21 10:59 Myelocytes # 0.0 K/mm3 02/09/21 10:59 Promyelocytes # 0.0 K/mm3 02/09/21 10:59 Blast Cells # 0.0 K/mm3 02/09/21 10:59 WBC Morphology Not Reportable 02/09/21 10:59 Hypersegmented Neuts Not Reportable 02/09/21 10:59 Hyposegmented Neuts Not Reportable 02/09/21 10:59 Hypogranular Neuts Not Reportable 02/09/21 10:59 Smudge Cells Not Reportable 02/09/21 10:59 Toxic Granulation Not Reportable 02/09/21 10:59 Toxic Vacuolation Not Reportable 02/09/21 10:59 Dohle Bodies Not Reportable 02/09/21 10:59 Pelger-Huet Anomaly Not Reportable 02/09/21 10:59 Ester Rods Not Reportable 02/09/21 10:59 Platelet Estimate Consistent w auto 02/09/21 10:59 Clumped Platelets Not Reportable 02/09/21 10:59 Plt Clumps, EDTA Not Reportable 02/09/21 10:59 Large Platelets Few 02/09/21 10:59 Giant Platelets Not Reportable 02/09/21 10:59 Platelet Satelliting Not Reportable 02/09/21 10:59 Plt Morphology Comment Not Reportable 02/09/21 10:59 RBC Morphology Not Reportable 02/09/21 10:59 Dimorphic RBCs Not Reportable 02/09/21 10:59 Polychromasia Not Reportable 02/09/21 10:59 Hypochromasia 1+ 02/09/21 10:59 Poikilocytosis Not Reportable 02/09/21 10:59 Anisocytosis Not Reportable 02/09/21 10:59 Microcytosis Not Reportable 02/09/21 10:59 Macrocytosis Not Reportable 02/09/21 10:59 Spherocytes Not Reportable 02/09/21 10:59 Pappenheimer Bodies Not Reportable 02/09/21 10:59 Sickle Cells Not Reportable 02/09/21 10:59 Target Cells Not Reportable 02/09/21 10:59 Tear Drop Cells Not Reportable 02/09/21 10:59 Ovalocytes Not Reportable 02/09/21 10:59 Stomatocytes Few 10/14/20 04:00 Helmet Cells Not Reportable 02/09/21 10:59 Burk-[place] Bodies Not Reportable 02/09/21 10:59 [employer] Rings Not Reportable 02/09/21 10:59 Antoine Cells Not Reportable 02/09/21 10:59 Bite Cells Not Reportable 02/09/21 10:59 Crenated Cell Not Reportable 02/09/21 10:59 Elliptocytes Not Reportable 02/09/21 10:59 Acanthocytes (Spur) Not Reportable 02/09/21 10:59 Rouleaux Not Reportable 02/09/21 10:59 Hemoglobin C Crystals Not Reportable 02/09/21 10:59 Schistocytes Not Reportable 02/09/21 10:59 Malaria parasites Not Reportable 02/09/21 10:59 Sickle Cell Solubility See scanned result 10/04/20 Unknown Hemoglobin A See scanned result 10/04/20 Unknown Hemoglobin A2 See scanned result 10/04/20 Unknown Hemoglobin A2 Prime See scanned result 10/04/20 Unknown Hemoglobin C See scanned result 10/04/20 Unknown Hemoglobin D See scanned result 10/04/20 Unknown Hemoglobin E See scanned result 10/04/20 Unknown Hgb F Diffential Stain See scanned result 10/04/20 Unknown Hemoglobin F Quant See scanned result 10/04/20 Unknown Hemoglobin G See scanned result 10/04/20 Unknown Hemoglobin S See scanned result 10/04/20 Unknown Hemoglobin O-Cunningham See scanned result 10/04/20 Unknown Hemoglobin Barts See scanned result 10/04/20 Unknown Hemoglobin Analilia See scanned result 10/04/20 Unknown Variant Hemoglobin See scanned result 10/04/20 Unknown Abnorm Hgb IEF Confirm See scanned result 10/04/20 Unknown Hemoglobin Interpret See scanned result 10/04/20 Unknown Hemoglobinopathy Note See scanned result 10/04/20 Unknown Sharad Bodies Not Reportable 02/09/21 10:59 Hem Pathologist Commnt No 02/09/21 10:59 PT 13.6 Sec. (12.2-14.9) 10/21/20 13:54 INR 1.06 (0.87-1.13) 10/21/20 13:54 APTT 31.6 Sec. (24.2-36.6) 10/03/20 00:40 Fibrinogen 336 mg/dl (211-480) 10/04/20 10:00 D-Dimer 1974.47 ng/mlDDU (0-234) H 11/11/20 13:50 ABG pH 7.459 pH Units (7.350-7.450) H 10/26/20 10:30 POC ABG pCO2 20.7 mmHg (32.0-48.0) L 10/13/20 07:18 ABG pCO2 32.4 mm Hg 10/26/20 10:30 POC ABG pO2 137.9 mmHg (83-108) H 10/13/20 07:18 ABG pO2 112.2 mm Hg (80.0-90.0) H 10/26/20 10:30 POC ABG HCO3 14.8 10/13/20 07:18 ABG HCO3 22.5 mmol/L (20.0-26.0) 10/26/20 10:30 ABG O2 Saturation 98.2 % (95.0-99.0) 10/26/20 10:30 ABG O2 Content 18.5 (0.0-44) 10/26/20 10:30 POC ABG Base Excess -6.9 10/13/20 07:18 ABG Base Excess -0.6 mmol/L (-2.0-3.0) 10/26/20 10:30 ABG Hemoglobin 13.5 gm/dl (12.0-16.0) 10/26/20 10:30 ABG Oxyhemoglobin 98.3 (94-98) H 10/13/20 07:18 ABG Carboxyhemoglobin 1.3 % (0.0-5.0) 10/26/20 10:30 ABG Methemoglobin 0.5 % (0.0-1.5) 10/26/20 10:30 ABG Sodium 135.9 mmol/L (136.0-145.0) L 10/13/20 07:18 ABG Potassium 3.7 mmol/L (3.40-4.50) 10/13/20 07:18 ABG Chloride 111.0 mmol/L (98-107) H 10/13/20 07:18 ABG Glucose 109 mg/dL (65-95) H 10/13/20 07:18 VBG pH 6.949 (7.320-7.420) L* 10/02/20 Unknown Oxyhemoglobin 96.5 % (95.0-99.0) 10/26/20 10:30 Carboxyhemoglobin 0.3 (0.5-1.5) L 10/13/20 07:18 FiO2 25 % 10/26/20 10:30 Sodium 140 mmol/L (137-145) 04/16/21 08:37 Potassium 5.0 mmol/L (3.6-5.0) 04/16/21 08:37 Chloride 101.6 mmol/L (98-107) 04/16/21 08:37 Carbon Dioxide 24 mmol/L (22-30) 04/16/21 08:37 Anion Gap 19 mmol/L 04/16/21 08:37 BUN 14 mg/dL (7-17) 04/16/21 08:37 Creatinine 0.5 mg/dL (0.6-1.2) L 04/16/21 08:37 Estimated GFR > 60 ml/min 04/16/21 08:37 BUN/Creatinine Ratio 28 % 04/16/21 08:37 Glucose 78 mg/dL (65-100) 04/16/21 08:37 POC Glucose 99 mg/dL (70-105) 04/17/21 05:06 Random Insulin 43.2 uIU/mL (<=19.6) H 11/02/20 19:19 Proinsulin See scanned result 11/02/20 19:19 C-Peptide 6.23 ng/mL (0.80-3.85) H 11/02/20 19:19 Lactic Acid 1.90 mmol/L (0.7-2.0) 10/04/20 22:00 Uric Acid 7.5 mg/dL (3.5-7.6) 10/02/20 13:05 Calcium 10.1 mg/dL (8.4-10.2) 04/16/21 08:37 Ionized Calcium 4.4 mg/dL (4.8-5.6) L 10/07/20 21:00 Phosphorus 4.60 mg/dL (2.5-4.5) H 11/13/20 10:05 Magnesium 2.10 mg/dL (1.7-2.3) 11/13/20 10:05 Total Bilirubin 0.40 mg/dL (0.1-1.2) 04/16/21 08:37 AST 45 units/L (5-40) H 04/16/21 08:37 ALT 39 units/L (7-56) 04/16/21 08:37 Alkaline Phosphatase 145 units/L (35-129) H 04/16/21 08:37 Lactate Dehydrogenase 769 units/L (91-180) H 10/02/20 13:05 C-Reactive Protein 0.70 mg/dL (0.00-1.30) 11/11/20 13:50 NT-Pro-B Natriuret Pep 2788 pg/mL (0-450) H 10/04/20 10:00 Total Protein 7.4 g/dL (6.3-8.2) 04/16/21 08:37 Albumin 4.3 g/dL (3.9-5) 04/16/21 08:37 Albumin/Globulin Ratio 1.4 % 04/16/21 08:37 Procalcitonin < 0.05 ng/mL (<0.15) 03/02/21 02:30 Arterial Blood Glucose 109 mg/dL (65-95) H 10/13/20 07:18 Arterial Blood Ionized Calcium 4.6 mg/dL (4.6-5.3) 10/13/20 07:18 Urine Color Yellow (Yellow) 01/25/21 09:51 Urine Turbidity Cloudy (Clear) 01/25/21 09:51 Urine pH 7.0 (5.0-7.0) 01/25/21 09:51 Ur Specific [place] 1.011 (1.003-1.030) 01/25/21 09:51 Urine Protein <15 mg/dl mg/dL (Negative) 01/25/21 09:51 Urine Glucose (UA) Neg mg/dL (Negative) 01/25/21 09:51 Urine Ketones Neg mg/dL (Negative) 01/25/21 09:51 Urine Blood Neg (Negative) 01/25/21 09:51 Urine Nitrite Neg (Negative) 01/25/21 09:51 Urine Bilirubin Neg (Negative) 01/25/21 09:51 Urine Urobilinogen < 2.0 mg/dL (<2.0) 01/25/21 09:51 Ur Leukocyte Esterase Neg (Negative) 01/25/21 09:51 Urine WBC (Auto) 6.0 /HPF (0.0-6.0) 01/25/21 09:51 Urine RBC (Auto) 3.0 /HPF (0.0-6.0) 01/25/21 09:51 U Epithel Cells (Auto) < 1.0 /HPF (0-13.0) 01/25/21 09:51 Urine Bacteria (Auto) 1+ /HPF (Negative) 01/18/21 08:47 Urine WBC Clumps 3+ /HPF 11/11/20 13:50 Calcium Oxalate Crystal Few 11/11/20 13:50 Urine Mucus Few /HPF 01/25/21 09:51 Urine Yeast (Budding) 2+ /HPF 01/25/21 09:51 Vancomycin Trough 12.6 ug/mL (5.0-20.0) 10/21/20 13:54 Random Vancomycin 10.7 ug/mL (0-40.0) 10/16/20 13:09 Phenytoin 5.7 ug/mL (10.0-20.0) L 10/13/20 07:00 C. difficile Tox (PCR) Positive (Negative) 10/16/20 10:22 Coronavirus (PCR) Negative (Negative) 10/08/20 14:15 Blood Type O POSITIVE 10/02/20 12:50 Antibody Screen Negative 10/02/20 12:50 Crossmatch See Detail 10/02/20 12:50 - Diagnostic Impressions Diagnostic Impressions: Echocardiogram 10/03/20 13:42 Transthoracic Echocardiogram Indication: S/P Cardiac Arrest R/O Cardiomyopathy BP: 133/71 Conclusions *Global left ventricular systolic function is normal. *The estimated ejection fraction is 60-65%. *There is trace of mitral regurgitation. *The right 0heart chambers are both slightly dilated. *There is mild tricuspid regurgitation. *There is mild-moderate pulmonary hypertension. *The right ventricular systolic pressure is calculated at 44 mmHg. *The study quality is technically difficult. Findings Procedure Info: The study quality is technically difficult. The study is technically limited due to patient body habitus. The study was technically limited due to the patient's inability to lay in the left lateral decubitus position. Left Ventricle: The left ventricular chamber size is normal. There is no left ventricular hypertrophy. Global left ventricular systolic function is normal. The estimated ejection fraction is 60-65%. Left Atrium: The left atrial chamber size is normal. Right Ventricle: The right ventricle is slightly dilated. Right Atrium: The right atrium is mildly dilated. Aortic Valve: The aortic valve leaflets are mildly thickened. There is no evidence of aortic regurgitation. There is no evidence of aortic stenosis. Mitral Valve: The mitral valve leaflets are mildly thickened. There is trace of mitral regurgitation. There is no evidence of mitral stenosis. Tricuspid Valve: There is mild tricuspid regurgitation. The right ventricular systolic pressure is calculated at 44 mmHg. There is evidence of mild pulmonary hypertension. Pulmonic Valve: There is trace pulmonic regurgitation. Pericardium: There is no pericardial effusion. Aorta: There is no dilatation of the ascending aorta. There is no dilatation of the aortic root. Venous: The inferior vena cava is dilated. Measurements Chambers 2D Name Value Normal Range IVSd (2D) 1 cm (0.6 - 1.1) LVPWd (2D) 1.01 cm (0.6 - 1.1) LVIDd (2D) 4.58 cm (3.7 - 5.6) LVIDs (2D) 3.17 cm (2 - 3.8) LV FS (2D) 30.93 % - EF Teichholz (2D) 58.66 % - Ao root diameter (2D) 2.94 cm (2 - 3.7) Volumes/Mass Name Value Normal Range LA ESV SP 4CH (A/L) 72.82 ml - LA ESV SP 2CH (A/L) 66.86 ml - LA ESV BP (A/L) 74.49 ml - LA ESV SP 4CH (MOD) 71.03 ml - LA ESV SP 2CH (MOD) 64.3 ml - LV EDV SP 4CH (MOD) 98.82 ml - LV ESV SP 4CH (MOD) 24.8 ml - EF SP 4CH (MOD) 74.9 % - LV EDV SP 2CH (MOD) 86.1 ml - LV ESV SP 2CH (MOD) 36.93 ml - EF SP 2CH (MOD) 57.11 % - LV EDV BP 94.4 ml - LV ESV BP 32.66 ml - BP EF (MOD) 65.4 % - Diastolic/Systolic Function Name Value Normal Range MV E-wave Vmax 1.04 m/sec - MV deceleration time 160.46 msec - MV A-wave Vmax 0.92 m/sec - MV E:A ratio 1.14 ratio - Aortic Valve Name Value Normal Range AV Vmax 2.12 m/sec - AV VTI 22.37 cm - AV peak gradient 17.95 mmHg - AV mean gradient 7.29 mmHg - LVOT diameter 2.01 cm - LVOT Vmax 1.8 m/sec - LVOT VTI 27.17 cm - LVOT peak gradient 12.91 mmHg - LVOT mean gradient 6.83 mmHg - SV LVOT 86.42 ml - ANITA (continuity Vmax) 2.7 cm2 - ANITA (continuity VTI) 3.86 cm2 - Ascending Ao 3.18 cm - Tricuspid Valve Name Value Normal Range TV E-wave Vmax 0.88 m/sec - TR Vmax 3.01 m/sec - TR peak gradient 36.27 mmHg - RAP 8 mmHg - RVSP 44 mmHg - IVC diameter 2.65 cm (1.2 - 2.3) Pulmonic Valve/Qp:Qs Name Value Normal Range PV Vmax 1.22 m/sec - PV peak gradient 5.91 mmHg - RVOT Vmax 0.87 m/sec - RVOT VTI 13.32 cm - RVOT peak gradient 3 mmHg - PV acceleration time 110.37 msec - [place]/IV: Voiding Method Incontinent IV Catheter Type [Right Foot] INT / Saline Lock IV Catheter Type [Left Forearm Peripheral IV ] IV Catheter Type [Left Wrist] INT / Saline Lock IV Catheter Type [Right Hand] INT / Saline Lock IV Catheter Type [Right INT / Saline Lock Antecubital] IV Catheter Type [Right Upper Mid-line arm] IV Catheter Type [Left Triple Lumen Cath Internal Jugular] IV Catheter Type [Left Hand] Peripheral IV IV Catheter Type [Left Peripheral IV Antecubital] Active Medications - Current Medications Current Medications: Generic Name Dose Route Start Last Admin Trade Name Freq PRN Reason Stop Dose Admin Acetaminophen 650 mg 10/05/20 16:34 04/15/21 15:02 Acetaminophen 325 Mg/10.15 Ml Oral Liqd Unit Dose FEEDTUBE 650 mg Q6H PRN Administration Non Cardiac Pain or Temp>100.5 Albuterol 2.5 mg 11/05/20 13:03 11/06/20 13:04 Albuterol 2.5 Mg/3 Ml Nebu IH 2.5 mg Q4HRT PRN Administration Shortness Of Breath Alprazolam 0.25 mg 01/20/21 13:33 04/15/21 21:27 Alprazolam 0.25 Mg Tab PO 0.25 mg Q8H PRN Administration Anxiety Lipase/Protease/Amylase 1 each 10/05/20 11:09 Lipase 10,500/Protease 25,000/Amylase 43,750 (Units) Dr Yuval GASCA PRN PRN For Clogged Feeding Tube Enoxaparin Sodium 40 mg 10/22/20 10:00 04/16/21 09:42 Enoxaparin 40 Mg/0.4 Ml Inj SUB-Q 40 mg DAILY ERINN Administration Protocol Famotidine 20 mg 10/07/20 10:00 04/16/21 22:58 Famotidine 20 Mg Tab PO 20 mg BID ERINN Administration Hydrophilic Ointment 1 applic 01/03/21 13:00 02/16/21 09:56 Lip Therapy Vaseline TP 1 applic DIRECT PRN Administration Dry Lips Metoprolol Tartrate 50 mg 02/02/21 16:01 04/16/21 22:56 Metoprolol Tartrate 25 Mg Tab PO 50 mg BID ERINN Administration Morphine Sulfate 2 mg 01/20/21 13:33 Morphine 2 Mg/1 Ml Inj IV Q4H PRN Pain, Moderate (4-6) Ondansetron HCl 4 mg 02/10/21 11:38 02/10/21 13:18 Ondansetron 4 Mg/2 Ml Inj IV 4 mg Q4H PRN Administration Nausea And Vomiting Simple Syrup 15 ml 10/05/20 11:09 Simple Syrup 15 Ml FEEDTUBE PRN PRN Hypoglycemia Simple Syrup 30 ml 10/05/20 11:09 03/23/21 06:11 Simple Syrup 15 Ml FEEDTUBE 30 ml PRN PRN Administration Hypoglycemia Sodium Bicarbonate 325 mg 10/05/20 11:09 12/16/20 08:19 Sodium Bicarbonate 325 Mg Tab FEEDTUBE 325 mg PRN PRN Administration For Clogged Feeding Tube Nutrition/Malnutrition Assess - Dietary Evaluation Nutrition/Malnutrition Findings: Nutrition Notes Start: 10/04/20 11:13 Freq: Status: Active Protocol: Document 04/16/21 12:14 MEY (Rec: 04/16/21 12:16 MEY [email or web address]) Nutrition Notes Initial or Follow up Reassessment Other Pertinent Diagnosis s/p cardiac arrest x 2, anoxic brain injury Current Diet TF - Promote at 65ml/hr Labs/Tests Cr 0.5 AST 45 Pertinent Medications Reviewed Height 5 ft 8 in Weight 87 kg [place] Body Weight (kg) 63.63 BMI 29.1 Weight Status Overweight Subjective/Other Information FU for TF tolerance and labs. Pt tolerating TF at goal rate. Percent of energy/protein needs met: 100%/100% Burn Absent Trauma Absent GI Symptoms None Difficulty In Swallowing,Chewing Current % PO Negligible Minimum of two criteria No physical signs of malnutrition #1 Nutrition Diagnosis Inadequate oral intake Diagnosis Progress(for reassessment Continues documentation) Is patient on ventilator? No Is Patient Ambulatory and/or Out of Bed No REE-([facility]-confined to bed) [phone] Calculation Used for Recommendations [facility] Additional Notes Pro needs 0.8-1g/k-89g/ day Fluid needs 1ml/kcal Nutrition Intervention Change Diet Order: Continue Nutrition Support: Continue Promote at 65 mL/hr Flush 100 ml q4h Kcal 1,560 Protein (gm) 98 Fluid (mL) 1,309 Goal #1 TF tolerance Goal #2 TF to meet at least 75% estimated energy and protein needs. Follow-Up By: 04/23/21 Additional Comments FU for stable TF
[2021-04-17] MEDS: FAMOTIDINE 20 MG TAB PO SCH ×2 (10:03→22:06)
[2021-04-17] MEDS: ENOXAPARIN 40 MG/0.4 ML INJ SUB-Q SCH (10:03)
[2021-04-17] MEDS: METOPROLOL TARTRATE 25 MG TAB PO SCH ×2 (14:40→22:07)
[2021-04-17] MEDS: ALPRAZolam 0.25 MG TAB PO PRN (22:08)
--- NOTE | 2021-04-18 08:08 | Progress Note ---
Assessment and Plan Assessment and plan: --Patient had cardiac arrest 10/07/2020 Status post CPR per ACLS protocol --Acute anoxic brain injury; Neurology extensively evaluated Continue supportive care --Acute hypoxic respiratory failure; Saturating room air, supportive care COVID-19 negative C. difficile positive; completed oral vancomycin Patient on contact isolation --Sepsis; completed treatment Continue to monitor off antibiotics ID following --COVID-19 test negative; 10/08/2020 --C. difficile colitis test; positive; 10/16/2020 --Acute metabolic encephalopathy --Acute kidney injury; vasomotor nephropathy Resolved, renal function within normal limits, closely monitor --Shock; requiring pressors, monitor off pressors Blood pressures reasonable level --DIC; sepsis, septic shock, resolved --History of preeclampsia; / hemorrhage Status post hysterectomy --History of C. difficile colitis; completed oral vancomycin --DVT/SVT and right upper extremity Very poor prognosis, Consults recommendations noted and appreciated We will closely monitor the patient and adjust management as needed Plan of care reviewed with the patient's nurse. Waiting for [facility] facility placement DC planning per case management, Brief history/daily hospital course 30 y/o female patient with Eclampsia/help syndrome, s/p emergent section with DIC, hemorrhage, supracervical abdominal hysterectomy, acute respiratory failure , tracheostomy on T-piece with morbid obesity, s/p cardiac arrest 12/08/2019 status post CPR per ACLS, acute hypoxic brain injury Acute kidney injury improved, severe shock requiring pressors, DIC septic shock improved, history of C. difficile colitis completed treatment with vancomycin. Tracheostomy on T-piece, continues to require 5 L of oxygen. Herpetic flareup, ID started treatment with antibiotics, patient is waiting for SNF placement DC planning per case management 10/02/2020---03/15/2021 daily hospital course reviewed 03/16/2021; Awaiting placement. Patient is on PEG tube feeding. Saturating well on room air. Patient is mildly tachycardic. Pending placement. 03/17/2021; Awaiting placement. Patient is on PEG tube feeding. Saturating well on room air. Patient is mildly tachycardic. Pending placement. 03/18/2021; awaiting placement. 03/19/2021; awaiting placement. 03/20/2021; awaiting placement. 03/21/21; awaiting placement. 03/22/2021; Awaiting placement. Patient is on PEG tube feeding. Saturating well on room air. Patient is mildly tachycardic. Pending placement. 03/23/2021; multiple social issues, awaiting LTAC placement 03/24/2021; pending placement. Clinically no change, I discussed with patient's mother extensively, she had numerous questions answered all of them She requested a repeat CT head as she noticed significant change in her daughters level of consciousness. Will check CT head without contrast 03/25/2021; I discussed with patient's mother extensively yesterday 03/24/2021, she requested a repeat CT scan as she feels that patient is responding f/u CT head without contrast 03/24/2021; no acute abnormalities, pronounced diffuse cerebral atrophy. 03/26/2021; awaiting placement, multiple social issues, I called and discussed CT head findings with patient's mother Ms. Santiago She verbalized understanding. Disposition; pending placement 03/30/2021 I resumed service today; Clinically no change, awaiting placement, multiple social issues 03/31/2021; multiple social issues, awaiting placement 04/01/2021; clinically no change, social issues, awaiting placement 04/02/2021; patient response to some sound by moving her head, not purposeful Did not respond to communication, awaiting placement 04/03/2021; pending placement social issues, 04/04/2021; clinically no change, awaiting placement 04/05/2021; awaiting placement, clinically stable 04/06/2021; clinically no change, patient is stable Awaiting placement, multiple social issues 04/07/2021; awaiting placement social issues. 04/09/2021; patient saturates well on room air PEG tube/PEG feeds, hemodynamically and clinically stable Stable for discharge home with home health versus placement 04/10/21 Awaiting placement 04/11/21 Aawaiting placement 04/12/2021 Awaiting placement 04/13/2021; patient is more alert and awake, noncommunicative Spontaneous opening eyes, vital signs noted, awaiting placement Social issues 04/14/2021; clinically no change Awaiting placement 04/16/2021; patient is awaiting placement 04/17/2021; clinically no change, awaiting placement Social issues 04/18/2021; pending placement History Interval history: Seen and examined the patient at the bedside this morning Patient is more alert and awake, responds to voice commands by moving her head Noncommunicative, Vital signs noted No new overnight events reported by the nursing staff Hospitalist Physical - Constitutional Vitals: Temp Pulse Resp BP Pulse Ox 98.4 F 81 18 95/67 100 04/18/21 05:58 04/18/21 05:58 04/18/21 05:58 04/18/21 05:58 04/18/21 05:58 General appearance: Present: no acute distress, well-nourished, obese - EENT Eyes: Present: PERRL, EOM intact - Neck Neck: Present: supple, normal ROM - Respiratory Respiratory effort: normal Respiratory: bilateral: diminished, negative: rales, rhonchi, wheezing - Cardiovascular Rhythm: regular Heart Sounds: Present: S1 & S2 - Extremities Extremities: no ischemia, No edema - Abdominal General gastrointestinal: soft, non-tender, non-distended, normal bowel sounds - Integumentary Integumentary: Present: clear, warm - Psychiatric Psychiatric: other (Noncommunicative) - Neurologic Neurologic: other (Noncommunicative) HEART Score - HEART Score Age: < 45 Risk factors: 1-2 risk factors - Critical Actions Critical Actions: >7 pts:50-65% risk of adverse cardiac event. Early invasive measures Results - Labs CBC & Chem 7: 03/16/21 04:42 04/16/21 08:37 Labs: Laboratory Last Values WBC 9.4 K/mm3 (4.5-11.0) 03/16/21 04:42 RBC 5.06 M/mm3 (3.65-5.03) H 03/16/21 04:42 Hgb 12.2 gm/dl (10.1-14.3) 03/16/21 04:42 Hgb Comment See scanned result 10/04/20 Unknown Hct 37.6 % (30.3-42.9) 03/16/21 04:42 MCV 74 fl (79-97) L 03/16/21 04:42 MCH 24 pg (28-32) L 03/16/21 04:42 MCHC 33 % (30-34) 03/16/21 04:42 RDW 15.8 % (13.2-15.2) H 03/16/21 04:42 Plt Count 311 K/mm3 (140-440) 03/16/21 04:42 Lymph % (Auto) 33.5 % (13.4-35.0) 03/16/21 04:42 [place] % (Auto) 8.1 % (0.0-7.3) H 03/16/21 04:42 Eos % (Auto) 1.7 % (0.0-4.3) 03/16/21 04:42 Baso % (Auto) 0.5 % (0.0-1.8) 03/16/21 04:42 Lymph # (Auto) 3.1 K/mm3 (1.2-5.4) 03/16/21 04:42 [place] # (Auto) 0.8 K/mm3 (0.0-0.8) 03/16/21 04:42 Eos # (Auto) 0.2 K/mm3 (0.0-0.4) 03/16/21 04:42 Baso # (Auto) 0.0 K/mm3 (0.0-0.1) 03/16/21 04:42 Add Manual Diff Complete 02/09/21 10:59 Total Counted 100 02/09/21 10:59 Seg Neutrophils % 56.2 % (40.0-70.0) 03/16/21 04:42 Seg Neuts % (Manual) 58.0 % (40.0-70.0) 02/09/21 10:59 Band Neutrophils % 2.0 % 10/15/20 05:50 Lymphocytes % (Manual) 29.0 % (13.4-35.0) 02/09/21 10:59 Reactive Lymphs % (Man) 1.0 % 10/02/20 12:18 Monocytes % (Manual) 13.0 % (0.0-7.3) H 02/09/21 10:59 Eosinophils % (Manual) 1.0 % (0.0-4.3) 10/29/20 07:56 Myelocytes % 2.0 % 10/02/20 13:05 Metamyelocytes % 1.0 % 10/14/20 04:00 Nucleated RBC % Not Reportable 02/09/21 10:59 Seg Neutrophils # 5.3 K/mm3 (1.8-7.7) 03/16/21 04:42 Seg Neutrophils # Man 3.7 K/mm3 (1.8-7.7) 02/09/21 10:59 Band Neutrophils # 0.0 K/mm3 02/09/21 10:59 Lymphocytes # (Manual) 1.8 K/mm3 (1.2-5.4) 02/09/21 10:59 Abs React Lymphs (Man) 0.0 K/mm3 02/09/21 10:59 Monocytes # (Manual) 0.8 K/mm3 (0.0-0.8) 02/09/21 10:59 Eosinophils # (Manual) 0.0 K/mm3 (0.0-0.4) 02/09/21 10:59 Basophils # (Manual) 0.0 K/mm3 (0.0-0.1) 02/09/21 10:59 Metamyelocytes # 0.0 K/mm3 02/09/21 10:59 Myelocytes # 0.0 K/mm3 02/09/21 10:59 Promyelocytes # 0.0 K/mm3 02/09/21 10:59 Blast Cells # 0.0 K/mm3 02/09/21 10:59 WBC Morphology Not Reportable 02/09/21 10:59 Hypersegmented Neuts Not Reportable 02/09/21 10:59 Hyposegmented Neuts Not Reportable 02/09/21 10:59 Hypogranular Neuts Not Reportable 02/09/21 10:59 Smudge Cells Not Reportable 02/09/21 10:59 Toxic Granulation Not Reportable 02/09/21 10:59 Toxic Vacuolation Not Reportable 02/09/21 10:59 Dohle Bodies Not Reportable 02/09/21 10:59 Pelger-Huet Anomaly Not Reportable 02/09/21 10:59 Ester Rods Not Reportable 02/09/21 10:59 Platelet Estimate Consistent w auto 02/09/21 10:59 Clumped Platelets Not Reportable 02/09/21 10:59 Plt Clumps, EDTA Not Reportable 02/09/21 10:59 Large Platelets Few 02/09/21 10:59 Giant Platelets Not Reportable 02/09/21 10:59 Platelet Satelliting Not Reportable 02/09/21 10:59 Plt Morphology Comment Not Reportable 02/09/21 10:59 RBC Morphology Not Reportable 02/09/21 10:59 Dimorphic RBCs Not Reportable 02/09/21 10:59 Polychromasia Not Reportable 02/09/21 10:59 Hypochromasia 1+ 02/09/21 10:59 Poikilocytosis Not Reportable 02/09/21 10:59 Anisocytosis Not Reportable 02/09/21 10:59 Microcytosis Not Reportable 02/09/21 10:59 Macrocytosis Not Reportable 02/09/21 10:59 Spherocytes Not Reportable 02/09/21 10:59 Pappenheimer Bodies Not Reportable 02/09/21 10:59 Sickle Cells Not Reportable 02/09/21 10:59 Target Cells Not Reportable 02/09/21 10:59 Tear Drop Cells Not Reportable 02/09/21 10:59 Ovalocytes Not Reportable 02/09/21 10:59 Stomatocytes Few 10/14/20 04:00 Helmet Cells Not Reportable 02/09/21 10:59 [place] Bodies Not Reportable 02/09/21 10:59 [place] Rings Not Reportable 02/09/21 10:59 Antoine Cells Not Reportable 02/09/21 10:59 Bite Cells Not Reportable 02/09/21 10:59 Crenated Cell Not Reportable 02/09/21 10:59 Elliptocytes Not Reportable 02/09/21 10:59 Acanthocytes (Spur) Not Reportable 02/09/21 10:59 Rouleaux Not Reportable 02/09/21 10:59 Hemoglobin C Crystals Not Reportable 02/09/21 10:59 Schistocytes Not Reportable 02/09/21 10:59 Malaria parasites Not Reportable 02/09/21 10:59 Sickle Cell Solubility See scanned result 10/04/20 Unknown Hemoglobin A See scanned result 10/04/20 Unknown Hemoglobin A2 See scanned result 10/04/20 Unknown Hemoglobin A2 Prime See scanned result 10/04/20 Unknown Hemoglobin C See scanned result 10/04/20 Unknown Hemoglobin D See scanned result 10/04/20 Unknown Hemoglobin E See scanned result 10/04/20 Unknown Hgb F Diffential Stain See scanned result 10/04/20 Unknown Hemoglobin F Quant See scanned result 10/04/20 Unknown Hemoglobin G See scanned result 10/04/20 Unknown Hemoglobin S See scanned result 10/04/20 Unknown Hemoglobin O-Marcy See scanned result 10/04/20 Unknown Hemoglobin [place] See scanned result 10/04/20 Unknown Hemoglobin Analilia See scanned result 10/04/20 Unknown Variant Hemoglobin See scanned result 10/04/20 Unknown Abnorm Hgb IEF Confirm See scanned result 10/04/20 Unknown Hemoglobin Interpret See scanned result 10/04/20 Unknown Hemoglobinopathy Note See scanned result 10/04/20 Unknown Sharad Bodies Not Reportable 02/09/21 10:59 Hem Pathologist Commnt No 02/09/21 10:59 PT 13.6 Sec. (12.2-14.9) 10/21/20 13:54 INR 1.06 (0.87-1.13) 10/21/20 13:54 APTT 31.6 Sec. (24.2-36.6) 10/03/20 00:40 Fibrinogen 336 mg/dl (211-480) 10/04/20 10:00 D-Dimer 1974.47 ng/mlDDU (0-234) H 11/11/20 13:50 ABG pH 7.459 pH Units (7.350-7.450) H 10/26/20 10:30 POC ABG pCO2 20.7 mmHg (32.0-48.0) L 10/13/20 07:18 ABG pCO2 32.4 mm Hg 10/26/20 10:30 POC ABG pO2 137.9 mmHg (83-108) H 10/13/20 07:18 ABG pO2 112.2 mm Hg (80.0-90.0) H 10/26/20 10:30 POC ABG HCO3 14.8 10/13/20 07:18 ABG HCO3 22.5 mmol/L (20.0-26.0) 10/26/20 10:30 ABG O2 Saturation 98.2 % (95.0-99.0) 10/26/20 10:30 ABG O2 Content 18.5 (0.0-44) 10/26/20 10:30 POC ABG Base Excess -6.9 10/13/20 07:18 ABG Base Excess -0.6 mmol/L (-2.0-3.0) 10/26/20 10:30 ABG Hemoglobin 13.5 gm/dl (12.0-16.0) 10/26/20 10:30 ABG Oxyhemoglobin 98.3 (94-98) H 10/13/20 07:18 ABG Carboxyhemoglobin 1.3 % (0.0-5.0) 10/26/20 10:30 ABG Methemoglobin 0.5 % (0.0-1.5) 10/26/20 10:30 ABG Sodium 135.9 mmol/L (136.0-145.0) L 10/13/20 07:18 ABG Potassium 3.7 mmol/L (3.40-4.50) 10/13/20 07:18 ABG Chloride 111.0 mmol/L (98-107) H 10/13/20 07:18 ABG Glucose 109 mg/dL (65-95) H 10/13/20 07:18 VBG pH 6.949 (7.320-7.420) L* 10/02/20 Unknown Oxyhemoglobin 96.5 % (95.0-99.0) 10/26/20 10:30 Carboxyhemoglobin 0.3 (0.5-1.5) L 10/13/20 07:18 FiO2 25 % 10/26/20 10:30 Sodium 140 mmol/L (137-145) 04/16/21 08:37 Potassium 5.0 mmol/L (3.6-5.0) 04/16/21 08:37 Chloride 101.6 mmol/L (98-107) 04/16/21 08:37 Carbon Dioxide 24 mmol/L (22-30) 04/16/21 08:37 Anion Gap 19 mmol/L 04/16/21 08:37 BUN 14 mg/dL (7-17) 04/16/21 08:37 Creatinine 0.5 mg/dL (0.6-1.2) L 04/16/21 08:37 Estimated GFR > 60 ml/min 04/16/21 08:37 BUN/Creatinine Ratio 28 % 04/16/21 08:37 Glucose 78 mg/dL (65-100) 04/16/21 08:37 POC Glucose 90 mg/dL (70-105) 04/18/21 07:16 Random Insulin 43.2 uIU/mL (<=19.6) H 11/02/20 19:19 Proinsulin See scanned result 11/02/20 19:19 C-Peptide 6.23 ng/mL (0.80-3.85) H 11/02/20 19:19 Lactic Acid 1.90 mmol/L (0.7-2.0) 10/04/20 22:00 Uric Acid 7.5 mg/dL (3.5-7.6) 10/02/20 13:05 Calcium 10.1 mg/dL (8.4-10.2) 04/16/21 08:37 Ionized Calcium 4.4 mg/dL (4.8-5.6) L 10/07/20 21:00 Phosphorus 4.60 mg/dL (2.5-4.5) H 11/13/20 10:05 Magnesium 2.10 mg/dL (1.7-2.3) 11/13/20 10:05 Total Bilirubin 0.40 mg/dL (0.1-1.2) 04/16/21 08:37 AST 45 units/L (5-40) H 04/16/21 08:37 ALT 39 units/L (7-56) 04/16/21 08:37 Alkaline Phosphatase 145 units/L (35-129) H 04/16/21 08:37 Lactate Dehydrogenase 769 units/L (91-180) H 10/02/20 13:05 C-Reactive Protein 0.70 mg/dL (0.00-1.30) 11/11/20 13:50 NT-Pro-B Natriuret Pep 2788 pg/mL (0-450) H 10/04/20 10:00 Total Protein 7.4 g/dL (6.3-8.2) 04/16/21 08:37 Albumin 4.3 g/dL (3.9-5) 04/16/21 08:37 Albumin/Globulin Ratio 1.4 % 04/16/21 08:37 Procalcitonin < 0.05 ng/mL (<0.15) 03/02/21 02:30 Arterial Blood Glucose 109 mg/dL (65-95) H 10/13/20 07:18 Arterial Blood Ionized Calcium 4.6 mg/dL (4.6-5.3) 10/13/20 07:18 Urine Color Yellow (Yellow) 01/25/21 09:51 Urine Turbidity Cloudy (Clear) 01/25/21 09:51 Urine pH 7.0 (5.0-7.0) 01/25/21 09:51 Ur Specific Mcguffe[place] 1.011 (1.003-1.030) 01/25/21 09:51 Urine Protein <15 mg/dl mg/dL (Negative) 01/25/21 09:51 Urine Glucose (UA) Neg mg/dL (Negative) 01/25/21 09:51 Urine Ketones Neg mg/dL (Negative) 01/25/21 09:51 Urine Blood Neg (Negative) 01/25/21 09:51 Urine Nitrite Neg (Negative) 01/25/21 09:51 Urine Bilirubin Neg (Negative) 01/25/21 09:51 Urine Urobilinogen < 2.0 mg/dL (<2.0) 01/25/21 09:51 Ur Leukocyte Esterase Neg (Negative) 01/25/21 09:51 Urine WBC (Auto) 6.0 /HPF (0.0-6.0) 01/25/21 09:51 Urine RBC (Auto) 3.0 /HPF (0.0-6.0) 01/25/21 09:51 U Epithel Cells (Auto) < 1.0 /HPF (0-13.0) 01/25/21 09:51 Urine Bacteria (Auto) 1+ /HPF (Negative) 01/18/21 08:47 Urine WBC Clumps 3+ /HPF 11/11/20 13:50 Calcium Oxalate Crystal Few 11/11/20 13:50 Urine Mucus Few /HPF 01/25/21 09:51 Urine Yeast (Budding) 2+ /HPF 01/25/21 09:51 Vancomycin Trough 12.6 ug/mL (5.0-20.0) 10/21/20 13:54 Random Vancomycin 10.7 ug/mL (0-40.0) 10/16/20 13:09 Phenytoin 5.7 ug/mL (10.0-20.0) L 10/13/20 07:00 C. difficile Tox (PCR) Positive (Negative) 10/16/20 10:22 Coronavirus (PCR) Negative (Negative) 10/08/20 14:15 Blood Type O POSITIVE 10/02/20 12:50 Antibody Screen Negative 10/02/20 12:50 Crossmatch See Detail 10/02/20 12:50 - Diagnostic Impressions Diagnostic Impressions: Echocardiogram 10/03/20 13:42 Transthoracic Echocardiogram Indication: S/P Cardiac Arrest R/O Cardiomyopathy BP: 133/71 Conclusions *Global left ventricular systolic function is normal. *The estimated ejection fraction is 60-65%. *There is trace of mitral regurgitation. *The right 0heart chambers are both slightly dilated. *There is mild tricuspid regurgitation. *There is mild-moderate pulmonary hypertension. *The right ventricular systolic pressure is calculated at 44 mmHg. *The study quality is technically difficult. Findings Procedure Info: The study quality is technically difficult. The study is technically limited due to patient body habitus. The study was technically limited due to the patient's inability to lay in the left lateral decubitus position. Left Ventricle: The left ventricular chamber size is normal. There is no left ventricular hypertrophy. Global left ventricular systolic function is normal. The estimated ejection fraction is 60-65%. Left Atrium: The left atrial chamber size is normal. Right Ventricle: The right ventricle is slightly dilated. Right Atrium: The right atrium is mildly dilated. Aortic Valve: The aortic valve leaflets are mildly thickened. There is no evidence of aortic regurgitation. There is no evidence of aortic stenosis. Mitral Valve: The mitral valve leaflets are mildly thickened. There is trace of mitral regurgitation. There is no evidence of mitral stenosis. Tricuspid Valve: There is mild tricuspid regurgitation. The right ventricular systolic pressure is calculated at 44 mmHg. There is evidence of mild pulmonary hypertension. Pulmonic Valve: There is trace pulmonic regurgitation. Pericardium: There is no pericardial effusion. Aorta: There is no dilatation of the ascending aorta. There is no dilatation of the aortic root. Venous: The inferior vena cava is dilated. Measurements Chambers 2D Name Value Normal Range IVSd (2D) 1 cm (0.6 - 1.1) LVPWd (2D) 1.01 cm (0.6 - 1.1) LVIDd (2D) 4.58 cm (3.7 - 5.6) LVIDs (2D) 3.17 cm (2 - 3.8) LV FS (2D) 30.93 % - EF Teichholz (2D) 58.66 % - Ao root diameter (2D) 2.94 cm (2 - 3.7) Volumes/Mass Name Value Normal Range LA ESV SP 4CH (A/L) 72.82 ml - LA ESV SP 2CH (A/L) 66.86 ml - LA ESV BP (A/L) 74.49 ml - LA ESV SP 4CH (MOD) 71.03 ml - LA ESV SP 2CH (MOD) 64.3 ml - LV EDV SP 4CH (MOD) 98.82 ml - LV ESV SP 4CH (MOD) 24.8 ml - EF SP 4CH (MOD) 74.9 % - LV EDV SP 2CH (MOD) 86.1 ml - LV ESV SP 2CH (MOD) 36.93 ml - EF SP 2CH (MOD) 57.11 % - LV EDV BP 94.4 ml - LV ESV BP 32.66 ml - BP EF (MOD) 65.4 % - Diastolic/Systolic Function Name Value Normal Range MV E-wave Vmax 1.04 m/sec - MV deceleration time 160.46 msec - MV A-wave Vmax 0.92 m/sec - MV E:A ratio 1.14 ratio - Aortic Valve Name Value Normal Range AV Vmax 2.12 m/sec - AV VTI 22.37 cm - AV peak gradient 17.95 mmHg - AV mean gradient 7.29 mmHg - LVOT diameter 2.01 cm - LVOT Vmax 1.8 m/sec - LVOT VTI 27.17 cm - LVOT peak gradient 12.91 mmHg - LVOT mean gradient 6.83 mmHg - SV LVOT 86.42 ml - ANITA (continuity Vmax) 2.7 cm2 - ANITA (continuity VTI) 3.86 cm2 - Ascending Ao 3.18 cm - Tricuspid Valve Name Value Normal Range TV E-wave Vmax 0.88 m/sec - TR Vmax 3.01 m/sec - TR peak gradient 36.27 mmHg - RAP 8 mmHg - RVSP 44 mmHg - IVC diameter 2.65 cm (1.2 - 2.3) Pulmonic Valve/Qp:Qs Name Value Normal Range PV Vmax 1.22 m/sec - PV peak gradient 5.91 mmHg - RVOT Vmax 0.87 m/sec - RVOT VTI 13.32 cm - RVOT peak gradient 3 mmHg - PV acceleration time 110.37 msec - [place]/IV: Voiding Method Incontinent IV Catheter Type [Right Foot] INT / Saline Lock IV Catheter Type [Left Forearm Peripheral IV ] IV Catheter Type [Left Wrist] INT / Saline Lock IV Catheter Type [Right Hand] INT / Saline Lock IV Catheter Type [Right INT / Saline Lock Antecubital] IV Catheter Type [Right Upper Mid-line arm] IV Catheter Type [Left Triple Lumen Cath Internal Jugular] IV Catheter Type [Left Hand] Peripheral IV IV Catheter Type [Left Peripheral IV Antecubital] Active Medications - Current Medications Current Medications: Generic Name Dose Route Start Last Admin Trade Name Freq PRN Reason Stop Dose Admin Acetaminophen 650 mg 10/05/20 16:34 04/15/21 15:02 Acetaminophen 325 Mg/10.15 Ml Oral Liqd Unit Dose FEEDTUBE 650 mg Q6H PRN Administration Non Cardiac Pain or Temp>100.5 Albuterol 2.5 mg 11/05/20 13:03 11/06/20 13:04 Albuterol 2.5 Mg/3 Ml Nebu IH 2.5 mg Q4HRT PRN Administration Shortness Of Breath Alprazolam 0.25 mg 01/20/21 13:33 04/17/21 22:08 Alprazolam 0.25 Mg Tab PO 0.25 mg Q8H PRN Administration Anxiety Lipase/Protease/Amylase 1 each 10/05/20 11:09 Lipase 10,500/Protease 25,000/Amylase 43,750 (Units) Dr Barakat FEEDTUBE PRN PRN For Clogged Feeding Tube Enoxaparin Sodium 40 mg 10/22/20 10:00 04/17/21 10:03 Enoxaparin 40 Mg/0.4 Ml Inj SUB-Q 40 mg DAILY ERINN Administration Protocol Famotidine 20 mg 10/07/20 10:00 04/17/21 22:06 Famotidine 20 Mg Tab PO 20 mg BID ERINN Administration Hydrophilic Ointment 1 applic 01/03/21 13:00 02/16/21 09:56 Lip Therapy Vaseline TP 1 applic DIRECT PRN Administration Dry Lips Metoprolol Tartrate 50 mg 02/02/21 16:01 04/17/21 22:07 Metoprolol Tartrate 25 Mg Tab PO 50 mg BID ERINN Administration Morphine Sulfate 2 mg 01/20/21 13:33 Morphine 2 Mg/1 Ml Inj IV Q4H PRN Pain, Moderate (4-6) Ondansetron HCl 4 mg 02/10/21 11:38 02/10/21 13:18 Ondansetron 4 Mg/2 Ml Inj IV 4 mg Q4H PRN Administration Nausea And Vomiting Simple Syrup 15 ml 10/05/20 11:09 Simple Syrup 15 Ml FEEDTUBE PRN PRN Hypoglycemia Simple Syrup 30 ml 10/05/20 11:09 03/23/21 06:11 Simple Syrup 15 Ml FEEDTUBE 30 ml PRN PRN Administration Hypoglycemia Sodium Bicarbonate 325 mg 10/05/20 11:09 12/16/20 08:19 Sodium Bicarbonate 325 Mg Tab FEEDTUBE 325 mg PRN PRN Administration For Clogged Feeding Tube Nutrition/Malnutrition Assess - Dietary Evaluation Nutrition/Malnutrition Findings: Nutrition Notes Start: 10/04/20 11:13 Freq: Status: Active Protocol: Document 04/16/21 12:14 MEY (Rec: 04/16/21 12:16 MEY [id number]) Nutrition Notes Initial or Follow up Reassessment Other Pertinent Diagnosis s/p cardiac arrest x 2, anoxic brain injury Current Diet TF - Promote at 65ml/hr Labs/Tests Cr 0.5 AST 45 Pertinent Medications Reviewed Height 5 ft 8 in Weight 87 kg [place] Body Weight (kg) 63.63 BMI 29.1 Weight Status Overweight Subjective/Other Information FU for TF tolerance and labs. Pt tolerating TF at goal rate. Percent of energy/protein needs met: 100%/100% Burn Absent Trauma Absent GI Symptoms None Difficulty In Swallowing,Chewing Current % PO Negligible Minimum of two criteria No physical signs of malnutrition #1 Nutrition Diagnosis Inadequate oral intake Diagnosis Progress(for reassessment Continues documentation) Is patient on ventilator? No Is Patient Ambulatory and/or Out of Bed No REE-([facility]-confined to bed) 1956.228 Calculation Used for Recommendations [facility] Additional Notes Pro needs 0.8-1g/k-89g/ day Fluid needs 1ml/kcal Nutrition Intervention Change Diet Order: Continue Nutrition Support: Continue Promote at 65 mL/hr Flush 100 ml q4h Kcal 1,560 Protein (gm) 98 Fluid (mL) 1,309 Goal #1 TF tolerance Goal #2 TF to meet at least 75% estimated energy and protein needs. Follow-Up By: 04/23/21 Additional Comments FU for stable TF
[2021-04-18] MEDS: METOPROLOL TARTRATE 25 MG TAB PO SCH ×2 (10:10→21:29)
[2021-04-18] MEDS: ENOXAPARIN 40 MG/0.4 ML INJ SUB-Q SCH (10:10)
[2021-04-18] MEDS: FAMOTIDINE 20 MG TAB PO SCH ×2 (10:11→21:29)
[2021-04-18] MEDS: ALPRAZolam 0.25 MG TAB PO PRN (12:48)
[2021-04-19] MEDS: FAMOTIDINE 20 MG TAB PO SCH ×2 (09:00→22:11)
[2021-04-19] MEDS: ENOXAPARIN 40 MG/0.4 ML INJ SUB-Q SCH (09:00)
[2021-04-19] MEDS: METOPROLOL TARTRATE 25 MG TAB PO SCH ×2 (09:00→22:11)
[2021-04-19] MEDS: ALPRAZolam 0.25 MG TAB PO PRN ×2 (15:29→22:11)
--- NOTE | 2021-04-19 17:27 | Progress Note ---
Assessment and Plan Assessment and plan: Clinically no change, encephalopathic, noncommunicative, awaiting placement, social issues --Patient had cardiac arrest 10/07/2020 Status post CPR per ACLS protocol --Acute anoxic brain injury; Neurology extensively evaluated Continue supportive care --Acute hypoxic respiratory failure; Saturating room air, supportive care COVID-19 negative C. difficile positive; completed oral vancomycin Patient on contact isolation --Sepsis; completed treatment Continue to monitor off antibiotics ID following --COVID-19 test negative; 10/08/2020 --C. difficile colitis test; positive; 10/16/2020 --Acute metabolic encephalopathy --Acute kidney injury; vasomotor nephropathy Resolved, renal function within normal limits, closely monitor --Shock; requiring pressors, monitor off pressors Blood pressures reasonable level --DIC; sepsis, septic shock, resolved --History of preeclampsia; / hemorrhage Status post hysterectomy --History of C. difficile colitis; completed oral vancomycin --DVT/SVT and right upper extremity Very poor prognosis, Consults recommendations noted and appreciated We will closely monitor the patient and adjust management as needed Plan of care reviewed with the patient's nurse. [facility]ing for [facility] facility placement DC planning per case management, Brief history/daily hospital course 30 y/o female patient with Eclampsia/help syndrome, s/p emergent section with DIC, hemorrhage, supracervical abdominal hysterectomy, acute respi ratory failure , tracheostomy on T-piece with morbid obesity, s/p cardiac arrest 12/08/2019 status post CPR per ACLS, acute hypoxic brain injury Acute kidney injury improved, severe shock requiring pressors, DIC septic shock improved, history of C. difficile colitis completed treatment with vancomycin. Tracheostomy on T-piece, continues to require 5 L of oxygen. Herpetic flareup, ID started treatment with antibiotics, patient is waiting for SNF placement DC planning per case management 10/02/2020---03/15/2021 daily hospital course reviewed 03/16/2021; Awaiting placement. Patient is on PEG tube feeding. Saturating well on room air. Patient is mildly tachycardic. Pending placement. 03/17/2021; Awaiting placement. Patient is on PEG tube feeding. Saturating well on room air. Patient is mildly tachycardic. Pending placement. 03/18/2021; awaiting placement. 03/19/2021; awaiting placement. 03/20/2021; awaiting placement. 03/21/21; awaiting placement. 03/22/2021; Awaiting placement. Patient is on PEG tube feeding. Saturating well on room air. Patient is mildly tachycardic. Pending placement. 03/23/2021; multiple social issues, awaiting LTAC placement 03/24/2021; pending placement. Clinically no change, I discussed with patient's mother extensively, she had numerous questions answered all of them She requested a repeat CT head as she noticed significant change in her daughters level of consciousness. Will check CT head without contrast 03/25/2021; I discussed with patient's mother extensively yesterday 03/24/2021, she requested a repeat CT scan as she feels that patient is responding f/u CT head without contrast 03/24/2021; no acute abnormalities, pronounced diffuse cerebral atrophy. 03/26/2021; awaiting placement, multiple social issues, I called and discussed CT head findings with patient's mother Ms. Santiago She verbalized understanding. Disposition; pending placement 03/30/2021 I resumed service today; Clinically no change, awaiting placement, multiple social issues 03/31/2021; multiple social issues, awaiting placement 04/01/2021; clinically no change, social issues, awaiting placement 04/02/2021; patient response to some sound by moving her head, not purposeful Did not respond to communication, awaiting placement 04/03/2021; pending placement social issues, 04/04/2021; clinically no change, awaiting placement 04/05/2021; awaiting placement, clinically stable 04/06/2021; clinically no change, patient is stable Awaiting placement, multiple social issues 04/07/2021; awaiting placement social issues. 04/09/2021; patient saturates well on room air PEG tube/PEG feeds, hemodynamically and clinically stable Stable for discharge home with home health versus placement 04/10/21 Awaiting placement 04/11/21 Aawaiting placement 04/12/2021 Awaiting placement 04/13/2021; patient is more alert and awake, noncommunicative Spontaneous opening eyes, vital signs noted, awaiting placement Social issues 04/14/2021; clinically no change Awaiting placement 04/16/2021; patient is awaiting placement 04/17/2021; clinically no change, awaiting placement Social issues 04/18/2021; pending placement History Interval history: I have seen and examined the patient at the bedside this morning during rounds Patient's chart medications reviewed No new overnight events reported by the nursing Patient is comfortable confused Noncommunicative Vital signs noted Hospitalist Physical - Constitutional Vitals: Temp Pulse Resp BP Pulse Ox 98.9 F 96 H 20 104/69 97 04/19/21 07:05 04/19/21 11:29 04/19/21 07:05 04/19/21 11:29 04/19/21 11:29 General appearance: Present: no acute distress, well-nourished, obese, other - EENT Eyes: Present: PERRL, EOM intact (Noncommunicative) - Neck Neck: Present: supple, normal ROM - Respiratory Respiratory effort: normal Respiratory: bilateral: diminished, negative: rales, rhonchi, wheezing - Cardiovascular Rhythm: regular Heart Sounds: Present: S1 & S2 - Extremities Extremities: no ischemia, No edema - Abdominal General gastrointestinal: soft, non-tender, non-distended, normal bowel sounds - Integumentary Integumentary: Present: clear, warm - Psychiatric Psychiatric: other (Noncommunicative) - Neurologic Neurologic: other (Encephalopathic noncommunicative) HEART Score - HEART Score Age: < 45 Risk factors: 1-2 risk factors - Critical Actions Critical Actions: >7 pts:50-65% risk of adverse cardiac event. Early invasive measures Results - Labs CBC & Chem 7: 03/16/21 04:42 04/16/21 08:37 Labs: Laboratory Last Values WBC 9.4 K/mm3 (4.5-11.0) 03/16/21 04:42 RBC 5.06 M/mm3 (3.65-5.03) H 03/16/21 04:42 Hgb 12.2 gm/dl (10.1-14.3) 03/16/21 04:42 Hgb Comment See scanned result 10/04/20 Unknown Hct 37.6 % (30.3-42.9) 03/16/21 04:42 MCV 74 fl (79-97) L 03/16/21 04:42 MCH 24 pg (28-32) L 03/16/21 04:42 MCHC 33 % (30-34) 03/16/21 04:42 RDW 15.8 % (13.2-15.2) H 03/16/21 04:42 Plt Count 311 K/mm3 (140-440) 03/16/21 04:42 Lymph % (Auto) 33.5 % (13.4-35.0) 03/16/21 04:42 [place] % (Auto) 8.1 % (0.0-7.3) H 03/16/21 04:42 Eos % (Auto) 1.7 % (0.0-4.3) 03/16/21 04:42 Baso % (Auto) 0.5 % (0.0-1.8) 03/16/21 04:42 Lymph # (Auto) 3.1 K/mm3 (1.2-5.4) 03/16/21 04:42 [place] # (Auto) 0.8 K/mm3 (0.0-0.8) 03/16/21 04:42 Eos # (Auto) 0.2 K/mm3 (0.0-0.4) 03/16/21 04:42 Baso # (Auto) 0.0 K/mm3 (0.0-0.1) 03/16/21 04:42 Add Manual Diff Complete 02/09/21 10:59 Total Counted 100 02/09/21 10:59 Seg Neutrophils % 56.2 % (40.0-70.0) 03/16/21 04:42 Seg Neuts % (Manual) 58.0 % (40.0-70.0) 02/09/21 10:59 Band Neutrophils % 2.0 % 10/15/20 05:50 Lymphocytes % (Manual) 29.0 % (13.4-35.0) 02/09/21 10:59 Reactive Lymphs % (Man) 1.0 % 10/02/20 12:18 Monocytes % (Manual) 13.0 % (0.0-7.3) H 02/09/21 10:59 Eosinophils % (Manual) 1.0 % (0.0-4.3) 10/29/20 07:56 Myelocytes % 2.0 % 10/02/20 13:05 Metamyelocytes % 1.0 % 10/14/20 04:00 Nucleated RBC % Not Reportable 02/09/21 10:59 Seg Neutrophils # 5.3 K/mm3 (1.8-7.7) 03/16/21 04:42 Seg Neutrophils # Man 3.7 K/mm3 (1.8-7.7) 02/09/21 10:59 Band Neutrophils # 0.0 K/mm3 02/09/21 10:59 Lymphocytes # (Manual) 1.8 K/mm3 (1.2-5.4) 02/09/21 10:59 Abs React Lymphs (Man) 0.0 K/mm3 02/09/21 10:59 Monocytes # (Manual) 0.8 K/mm3 (0.0-0.8) 02/09/21 10:59 Eosinophils # (Manual) 0.0 K/mm3 (0.0-0.4) 02/09/21 10:59 Basophils # (Manual) 0.0 K/mm3 (0.0-0.1) 02/09/21 10:59 Metamyelocytes # 0.0 K/mm3 02/09/21 10:59 Myelocytes # 0.0 K/mm3 02/09/21 10:59 Promyelocytes # 0.0 K/mm3 02/09/21 10:59 Blast Cells # 0.0 K/mm3 02/09/21 10:59 WBC Morphology Not Reportable 02/09/21 10:59 Hypersegmented Neuts Not Reportable 02/09/21 10:59 Hyposegmented Neuts Not Reportable 02/09/21 10:59 Hypogranular Neuts Not Reportable 02/09/21 10:59 Smudge Cells Not Reportable 02/09/21 10:59 Toxic Granulation Not Reportable 02/09/21 10:59 Toxic Vacuolation Not Reportable 02/09/21 10:59 Dohle Bodies Not Reportable 02/09/21 10:59 Pelger-Huet Anomaly Not Reportable 02/09/21 10:59 Ester Rods Not Reportable 02/09/21 10:59 Platelet Estimate Consistent w auto 02/09/21 10:59 Clumped Platelets Not Reportable 02/09/21 10:59 Plt Clumps, EDTA Not Reportable 02/09/21 10:59 Large Platelets Few 02/09/21 10:59 Giant Platelets Not Reportable 02/09/21 10:59 Platelet Satelliting Not Reportable 02/09/21 10:59 Plt Morphology Comment Not Reportable 02/09/21 10:59 RBC Morphology Not Reportable 02/09/21 10:59 Dimorphic RBCs Not Reportable 02/09/21 10:59 Polychromasia Not Reportable 02/09/21 10:59 Hypochromasia 1+ 02/09/21 10:59 Poikilocytosis Not Reportable 02/09/21 10:59 Anisocytosis Not Reportable 02/09/21 10:59 Microcytosis Not Reportable 02/09/21 10:59 Macrocytosis Not Reportable 02/09/21 10:59 Spherocytes Not Reportable 02/09/21 10:59 Pappenheimer Bodies Not Reportable 02/09/21 10:59 Sickle Cells Not Reportable 02/09/21 10:59 Target Cells Not Reportable 02/09/21 10:59 Tear Drop Cells Not Reportable 02/09/21 10:59 Ovalocytes Not Reportable 02/09/21 10:59 Stomatocytes Few 10/14/20 04:00 Helmet Cells Not Reportable 02/09/21 10:59 Burk-[place] Bodies Not Reportable 02/09/21 10:59 [place] Rings Not Reportable 02/09/21 10:59 Antoine Cells Not Reportable 02/09/21 10:59 Bite Cells Not Reportable 02/09/21 10:59 Crenated Cell Not Reportable 02/09/21 10:59 Elliptocytes Not Reportable 02/09/21 10:59 Acanthocytes (Spur) Not Reportable 02/09/21 10:59 Rouleaux Not Reportable 02/09/21 10:59 Hemoglobin C Crystals Not Reportable 02/09/21 10:59 Schistocytes Not Reportable 02/09/21 10:59 Malaria parasites Not Reportable 02/09/21 10:59 Sickle Cell Solubility See scanned result 10/04/20 Unknown Hemoglobin A See scanned result 10/04/20 Unknown Hemoglobin A2 See scanned result 10/04/20 Unknown Hemoglobin A2 Prime See scanned result 10/04/20 Unknown Hemoglobin C See scanned result 10/04/20 Unknown Hemoglobin D See scanned result 10/04/20 Unknown Hemoglobin E See scanned result 10/04/20 Unknown Hgb F Diffential Stain See scanned result 10/04/20 Unknown Hemoglobin F Quant See scanned result 10/04/20 Unknown Hemoglobin G See scanned result 10/04/20 Unknown Hemoglobin S See scanned result 10/04/20 Unknown Hemoglobin [place] See scanned result 10/04/20 Unknown Hemoglobin [place] See scanned result 10/04/20 Unknown Hemoglobin Analilia See scanned result 10/04/20 Unknown Variant Hemoglobin See scanned result 10/04/20 Unknown Abnorm Hgb IEF Confirm See scanned result 10/04/20 Unknown Hemoglobin Interpret See scanned result 10/04/20 Unknown Hemoglobinopathy Note See scanned result 10/04/20 Unknown Sharad Bodies Not Reportable 02/09/21 10:59 Hem Pathologist Commnt No 02/09/21 10:59 PT 13.6 Sec. (12.2-14.9) 10/21/20 13:54 INR 1.06 (0.87-1.13) 10/21/20 13:54 APTT 31.6 Sec. (24.2-36.6) 10/03/20 00:40 Fibrinogen 336 mg/dl (211-480) 10/04/20 10:00 D-Dimer 1974.47 ng/mlDDU (0-234) H 11/11/20 13:50 ABG pH 7.459 pH Units (7.350-7.450) H 10/26/20 10:30 POC ABG pCO2 20.7 mmHg (32.0-48.0) L 10/13/20 07:18 ABG pCO2 32.4 mm Hg 10/26/20 10:30 POC ABG pO2 137.9 mmHg (83-108) H 10/13/20 07:18 ABG pO2 112.2 mm Hg (80.0-90.0) H 10/26/20 10:30 POC ABG HCO3 14.8 10/13/20 07:18 ABG HCO3 22.5 mmol/L (20.0-26.0) 10/26/20 10:30 ABG O2 Saturation 98.2 % (95.0-99.0) 10/26/20 10:30 ABG O2 Content 18.5 (0.0-44) 10/26/20 10:30 POC ABG Base Excess -6.9 10/13/20 07:18 ABG Base Excess -0.6 mmol/L (-2.0-3.0) 10/26/20 10:30 ABG Hemoglobin 13.5 gm/dl (12.0-16.0) 10/26/20 10:30 ABG Oxyhemoglobin 98.3 (94-98) H 10/13/20 07:18 ABG Carboxyhemoglobin 1.3 % (0.0-5.0) 10/26/20 10:30 ABG Methemoglobin 0.5 % (0.0-1.5) 10/26/20 10:30 ABG Sodium 135.9 mmol/L (136.0-145.0) L 10/13/20 07:18 ABG Potassium 3.7 mmol/L (3.40-4.50) 10/13/20 07:18 ABG Chloride 111.0 mmol/L (98-107) H 10/13/20 07:18 ABG Glucose 109 mg/dL (65-95) H 10/13/20 07:18 VBG pH 6.949 (7.320-7.420) L* 10/02/20 Unknown Oxyhemoglobin 96.5 % (95.0-99.0) 10/26/20 10:30 Carboxyhemoglobin 0.3 (0.5-1.5) L 10/13/20 07:18 FiO2 25 % 10/26/20 10:30 Sodium 140 mmol/L (137-145) 04/16/21 08:37 Potassium 5.0 mmol/L (3.6-5.0) 04/16/21 08:37 Chloride 101.6 mmol/L (98-107) 04/16/21 08:37 Carbon Dioxide 24 mmol/L (22-30) 04/16/21 08:37 Anion Gap 19 mmol/L 04/16/21 08:37 BUN 14 mg/dL (7-17) 04/16/21 08:37 Creatinine 0.5 mg/dL (0.6-1.2) L 04/16/21 08:37 Estimated GFR > 60 ml/min 04/16/21 08:37 BUN/Creatinine Ratio 28 % 04/16/21 08:37 Glucose 78 mg/dL (65-100) 04/16/21 08:37 POC Glucose 89 mg/dL (70-105) 04/19/21 16:55 Random Insulin 43.2 uIU/mL (<=19.6) H 11/02/20 19:19 Proinsulin See scanned result 11/02/20 19:19 C-Peptide 6.23 ng/mL (0.80-3.85) H 11/02/20 19:19 Lactic Acid 1.90 mmol/L (0.7-2.0) 10/04/20 22:00 Uric Acid 7.5 mg/dL (3.5-7.6) 10/02/20 13:05 Calcium 10.1 mg/dL (8.4-10.2) 04/16/21 08:37 Ionized Calcium 4.4 mg/dL (4.8-5.6) L 10/07/20 21:00 Phosphorus 4.60 mg/dL (2.5-4.5) H 11/13/20 10:05 Magnesium 2.10 mg/dL (1.7-2.3) 11/13/20 10:05 Total Bilirubin 0.40 mg/dL (0.1-1.2) 04/16/21 08:37 AST 45 units/L (5-40) H 04/16/21 08:37 ALT 39 units/L (7-56) 04/16/21 08:37 Alkaline Phosphatase 145 units/L (35-129) H 04/16/21 08:37 Lactate Dehydrogenase 769 units/L (91-180) H 10/02/20 13:05 C-Reactive Protein 0.70 mg/dL (0.00-1.30) 11/11/20 13:50 NT-Pro-B Natriuret Pep 2788 pg/mL (0-450) H 10/04/20 10:00 Total Protein 7.4 g/dL (6.3-8.2) 04/16/21 08:37 Albumin 4.3 g/dL (3.9-5) 04/16/21 08:37 Albumin/Globulin Ratio 1.4 % 04/16/21 08:37 Procalcitonin < 0.05 ng/mL (<0.15) 03/02/21 02:30 Arterial Blood Glucose 109 mg/dL (65-95) H 10/13/20 07:18 Arterial Blood Ionized Calcium 4.6 mg/dL (4.6-5.3) 10/13/20 07:18 Urine Color Yellow (Yellow) 01/25/21 09:51 Urine Turbidity Cloudy (Clear) 01/25/21 09:51 Urine pH 7.0 (5.0-7.0) 01/25/21 09:51 Ur Specific [place] 1.011 (1.003-1.030) 01/25/21 09:51 Urine Protein <15 mg/dl mg/dL (Negative) 01/25/21 09:51 Urine Glucose (UA) Neg mg/dL (Negative) 01/25/21 09:51 Urine Ketones Neg mg/dL (Negative) 01/25/21 09:51 Urine Blood Neg (Negative) 01/25/21 09:51 Urine Nitrite Neg (Negative) 01/25/21 09:51 Urine Bilirubin Neg (Negative) 01/25/21 09:51 Urine Urobilinogen < 2.0 mg/dL (<2.0) 01/25/21 09:51 Ur Leukocyte Esterase Neg (Negative) 01/25/21 09:51 Urine WBC (Auto) 6.0 /HPF (0.0-6.0) 01/25/21 09:51 Urine RBC (Auto) 3.0 /HPF (0.0-6.0) 01/25/21 09:51 U Epithel Cells (Auto) < 1.0 /HPF (0-13.0) 01/25/21 09:51 Urine Bacteria (Auto) 1+ /HPF (Negative) 01/18/21 08:47 Urine WBC Clumps 3+ /HPF 11/11/20 13:50 Calcium Oxalate Crystal Few 11/11/20 13:50 Urine Mucus Few /HPF 01/25/21 09:51 Urine Yeast (Budding) 2+ /HPF 01/25/21 09:51 Vancomycin Trough 12.6 ug/mL (5.0-20.0) 10/21/20 13:54 Random Vancomycin 10.7 ug/mL (0-40.0) 10/16/20 13:09 Phenytoin 5.7 ug/mL (10.0-20.0) L 10/13/20 07:00 C. difficile Tox (PCR) Positive (Negative) 10/16/20 10:22 Coronavirus (PCR) Negative (Negative) 10/08/20 14:15 Blood Type O POSITIVE 10/02/20 12:50 Antibody Screen Negative 10/02/20 12:50 Crossmatch See Detail 10/02/20 12:50 - Diagnostic Impressions Diagnostic Impressions: Echocardiogram 10/03/20 13:42 Transthoracic Echocardiogram Indication: S/P Cardiac Arrest R/O Cardiomyopathy BP: 133/71 Conclusions *Global left ventricular systolic function is normal. *The estimated ejection fraction is 60-65%. *There is trace of mitral regurgitation. *The right 0heart chambers are both slightly dilated. *There is mild tricuspid regurgitation. *There is mild-moderate pulmonary hypertension. *The right ventricular systolic pressure is calculated at 44 mmHg. *The study quality is technically difficult. Findings Procedure Info: The study quality is technically difficult. The study is technically limited due to patient body habitus. The study was technically limited due to the patient's inability to lay in the left lateral decubitus position. Left Ventricle: The left ventricular chamber size is normal. There is no left ventricular hypertrophy. Global left ventricular systolic function is normal. The estimated ejection fraction is 60-65%. Left Atrium: The left atrial chamber size is normal. Right Ventricle: The right ventricle is slightly dilated. Right Atrium: The right atrium is mildly dilated. Aortic Valve: The aortic valve leaflets are mildly thickened. There is no evidence of aortic regurgitation. There is no evidence of aortic stenosis. Mitral Valve: The mitral valve leaflets are mildly thickened. There is trace of mitral regurgitation. There is no evidence of mitral stenosis. Tricuspid Valve: There is mild tricuspid regurgitation. The right ventricular systolic pressure is calculated at 44 mmHg. There is evidence of mild pulmonary hypertension. Pulmonic Valve: There is trace pulmonic regurgitation. Pericardium: There is no pericardial effusion. Aorta: There is no dilatation of the ascending aorta. There is no dilatation of the aortic root. Venous: The inferior vena cava is dilated. Measurements Chambers 2D Name Value Normal Range IVSd (2D) 1 cm (0.6 - 1.1) LVPWd (2D) 1.01 cm (0.6 - 1.1) LVIDd (2D) 4.58 cm (3.7 - 5.6) LVIDs (2D) 3.17 cm (2 - 3.8) LV FS (2D) 30.93 % - EF Teichholz (2D) 58.66 % - Ao root diameter (2D) 2.94 cm (2 - 3.7) Volumes/Mass Name Value Normal Range LA ESV SP 4CH (A/L) 72.82 ml - LA ESV SP 2CH (A/L) 66.86 ml - LA ESV BP (A/L) 74.49 ml - LA ESV SP 4CH (MOD) 71.03 ml - LA ESV SP 2CH (MOD) 64.3 ml - LV EDV SP 4CH (MOD) 98.82 ml - LV ESV SP 4CH (MOD) 24.8 ml - EF SP 4CH (MOD) 74.9 % - LV EDV SP 2CH (MOD) 86.1 ml - LV ESV SP 2CH (MOD) 36.93 ml - EF SP 2CH (MOD) 57.11 % - LV EDV BP 94.4 ml - LV ESV BP 32.66 ml - BP EF (MOD) 65.4 % - Diastolic/Systolic Function Name Value Normal Range MV E-wave Vmax 1.04 m/sec - MV deceleration time 160.46 msec - MV A-wave Vmax 0.92 m/sec - MV E:A ratio 1.14 ratio - Aortic Valve Name Value Normal Range AV Vmax 2.12 m/sec - AV VTI 22.37 cm - AV peak gradient 17.95 mmHg - AV mean gradient 7.29 mmHg - LVOT diameter 2.01 cm - LVOT Vmax 1.8 m/sec - LVOT VTI 27.17 cm - LVOT peak gradient 12.91 mmHg - LVOT mean gradient 6.83 mmHg - SV LVOT 86.42 ml - ANITA (continuity Vmax) 2.7 cm2 - ANITA (continuity VTI) 3.86 cm2 - Ascending Ao 3.18 cm - Tricuspid Valve Name Value Normal Range TV E-wave Vmax 0.88 m/sec - TR Vmax 3.01 m/sec - TR peak gradient 36.27 mmHg - RAP 8 mmHg - RVSP 44 mmHg - IVC diameter 2.65 cm (1.2 - 2.3) Pulmonic Valve/Qp:Qs Name Value Normal Range PV Vmax 1.22 m/sec - PV peak gradient 5.91 mmHg - RVOT Vmax 0.87 m/sec - RVOT VTI 13.32 cm - RVOT peak gradient 3 mmHg - PV acceleration time 110.37 msec - [place]/IV: Voiding Method Incontinent IV Catheter Type [Right Foot] INT / Saline Lock IV Catheter Type [Left Forearm Peripheral IV ] IV Catheter Type [Left Wrist] INT / Saline Lock IV Catheter Type [Right Hand] INT / Saline Lock IV Catheter Type [Right INT / Saline Lock Antecubital] IV Catheter Type [Right Upper Mid-line arm] IV Catheter Type [Left Triple Lumen Cath Internal Jugular] IV Catheter Type [Left Hand] Peripheral IV IV Catheter Type [Left Peripheral IV Antecubital] Active Medications - Current Medications Current Medications: Generic Name Dose Route Start Last Admin Trade Name Freq PRN Reason Stop Dose Admin Acetaminophen 650 mg 10/05/20 16:34 04/15/21 15:02 Acetaminophen 325 Mg/10.15 Ml Oral Liqd Unit Dose FEEDTUBE 650 mg Q6H PRN Administration Non Cardiac Pain or Temp>100.5 Albuterol 2.5 mg 11/05/20 13:03 11/06/20 13:04 Albuterol 2.5 Mg/3 Ml Nebu IH 2.5 mg Q4HRT PRN Administration Shortness Of Breath Alprazolam 0.25 mg 01/20/21 13:33 04/19/21 15:29 Alprazolam 0.25 Mg Tab PO 0.25 mg Q8H PRN Administration Anxiety Lipase/Protease/Amylase 1 each 10/05/20 11:09 Lipase 10,500/Protease 25,000/Amylase 43,750 (Units) Dr Yuval GASCA PRN PRN For Clogged Feeding Tube Enoxaparin Sodium 40 mg 10/22/20 10:00 04/19/21 09:00 Enoxaparin 40 Mg/0.4 Ml Inj SUB-Q 40 mg DAILY ERINN Administration Protocol Famotidine 20 mg 10/07/20 10:00 04/19/21 09:00 Famotidine 20 Mg Tab PO 20 mg BID ERINN Administration Hydrophilic Ointment 1 applic 01/03/21 13:00 02/16/21 09:56 Lip Therapy Vaseline TP 1 applic DIRECT PRN Administration Dry Lips Metoprolol Tartrate 50 mg 02/02/21 16:01 04/19/21 09:00 Metoprolol Tartrate 25 Mg Tab PO 50 mg BID ERINN Administration Morphine Sulfate 2 mg 01/20/21 13:33 Morphine 2 Mg/1 Ml Inj IV Q4H PRN Pain, Moderate (4-6) Ondansetron HCl 4 mg 02/10/21 11:38 02/10/21 13:18 Ondansetron 4 Mg/2 Ml Inj IV 4 mg Q4H PRN Administration Nausea And Vomiting Simple Syrup 15 ml 10/05/20 11:09 Simple Syrup 15 Ml FEEDTUBE PRN PRN Hypoglycemia Simple Syrup 30 ml 10/05/20 11:09 03/23/21 06:11 Simple Syrup 15 Ml FEEDTUBE 30 ml PRN PRN Administration Hypoglycemia Sodium Bicarbonate 325 mg 10/05/20 11:09 12/16/20 08:19 Sodium Bicarbonate 325 Mg Tab FEEDTUBE 325 mg PRN PRN Administration For Clogged Feeding Tube Nutrition/Malnutrition Assess - Dietary Evaluation Nutrition/Malnutrition Findings: Nutrition Notes Start: 10/04/20 11:13 Freq: Status: Active Protocol: Document 04/16/21 12:14 MEY (Rec: 04/16/21 12:16 MEY [email or web address]) Nutrition Notes Initial or Follow up Reassessment Other Pertinent Diagnosis s/p cardiac arrest x 2, anoxic brain injury Current Diet TF - Promote at 65ml/hr Labs/Tests Cr 0.5 AST 45 Pertinent Medications Reviewed Height 5 ft 8 in Weight 87 kg [place] Body Weight (kg) 63.63 BMI 29.1 Weight Status Overweight Subjective/Other Information FU for TF tolerance and labs. Pt tolerating TF at goal rate. Percent of energy/protein needs met: 100%/100% Burn Absent Trauma Absent GI Symptoms None Difficulty In Swallowing,Chewing Current % PO Negligible Minimum of two criteria No physical signs of malnutrition #1 Nutrition Diagnosis Inadequate oral intake Diagnosis Progress(for reassessment Continues documentation) Is patient on ventilator? No Is Patient Ambulatory and/or Out of Bed No REE-([facility]-confined to bed) 1955.228 Calculation Used for Recommendations [facility] Additional Notes Pro needs 0.8-1g/k-89g/ day Fluid needs 1ml/kcal Nutrition Intervention Change Diet Order: Continue Nutrition Support: Continue Promote at 65 mL/hr Flush 100 ml q4h Kcal 1,560 Protein (gm) 98 Fluid (mL) 1,309 Goal #1 TF tolerance Goal #2 TF to meet at least 75% estimated energy and protein needs. Follow-Up By: 04/23/21 Additional Comments FU for stable TF
[2021-04-20] MEDS: ALPRAZolam 0.25 MG TAB PO PRN ×2 (09:08→22:30)
[2021-04-20] MEDS: METOPROLOL TARTRATE 25 MG TAB PO SCH ×2 (09:08→22:27)
[2021-04-20] MEDS: ENOXAPARIN 40 MG/0.4 ML INJ SUB-Q SCH (09:09)
[2021-04-20] MEDS: FAMOTIDINE 20 MG TAB PO SCH ×2 (09:10→22:27)
--- NOTE | 2021-04-20 09:52 | Progress Note ---
Assessment and Plan Assessment and plan: Clinically no change, encephalopathic, noncommunicative, awaiting placement, social issues Continue current supportive care --Patient had cardiac arrest 10/07/2020 Status post CPR per ACLS protocol --Acute anoxic brain injury; Neurology extensively evaluated Continue supportive care --Acute hypoxic respiratory failure; Saturating room air, supportive care COVID-19 negative C. difficile positive; completed oral vancomycin Patient on contact isolation --Sepsis; completed treatment Continue to monitor off antibiotics ID following --COVID-19 test negative; 10/08/2020 --C. difficile colitis test; positive; 10/16/2020 --Acute metabolic encephalopathy --Acute kidney injury; vasomotor nephropathy Resolved, renal function within normal limits, closely monitor --Shock; requiring pressors, monitor off pressors Blood pressures reasonable level --DIC; sepsis, septic shock, resolved --History of preeclampsia; / hemorrhage Status post hysterectomy --History of C. difficile colitis; completed oral vancomycin --DVT/SVT and right upper extremity Very poor prognosis, Consults recommendations noted and appreciated We will closely monitor the patient and adjust management as needed Plan of care reviewed with the patient's nurse. Waiting for assisted facility placement DC planning per case management, Brief history/daily hospital course 30 y/o female patient with Eclampsia/help syndrome, s/p emergent section with DIC, hemorrhage, supracervical abdominal hysterectomy, acute respiratory failure , tracheostomy on T-piece with morbid obesity, s/p cardiac arrest 12/08/2019 status post CPR per ACLS, acute hypoxic brain injury Acute kidney injury improved, severe shock requiring pressors, DIC septic shock improved, history of C. difficile colitis completed treatment with vancomycin. Tracheostomy on T-piece, continues to require 5 L of oxygen. Herpetic flareup, ID started treatment with antibiotics, patient is waiting for SNF placement DC planning per case management 10/02/2020---03/15/2021 daily hospital course reviewed 03/16/2021; Awaiting placement. Patient is on PEG tube feeding. Saturating well on room air. Patient is mildly tachycardic. Pending placement. 03/17/2021; Awaiting placement. Patient is on PEG tube feeding. Saturating well on room air. Patient is mildly tachycardic. Pending placement. 03/18/2021; awaiting placement. 03/19/2021; awaiting placement. 03/20/2021; awaiting placement. 03/21/21; awaiting placement. 03/22/2021; Awaiting placement. Patient is on PEG tube feeding. Saturating well on room air. Patient is mildly tachycardic. Pending placement. 03/23/2021; multiple social issues, awaiting LTAC placement 03/24/2021; pending placement. Clinically no change, I discussed with patient's mother extensively, she had numerous questions answered all of them She requested a repeat CT head as she noticed significant change in her daughters level of consciousness. Will check CT head without contrast 03/25/2021; I discussed with patient's mother extensively yesterday 03/24/2021, she requested a repeat CT scan as she feels that patient is responding f/u CT head without contrast 03/24/2021; no acute abnormalities, pronounced diffuse cerebral atrophy. 03/26/2021; awaiting placement, multiple social issues, I called and discussed CT head findings with patient's mother Ms. Santiago She verbalized understanding. Disposition; pending placement 03/30/2021 I resumed service today; Clinically no change, awaiting placement, multiple social issues 03/31/2021; multiple social issues, awaiting placement 04/01/2021; clinically no change, social issues, awaiting placement 04/02/2021; patient response to some sound by moving her head, not purposeful Did not respond to communication, awaiting placement 04/03/2021; pending placement social issues, 04/04/2021; clinically no change, awaiting placement 04/05/2021; awaiting placement, clinically stable 04/06/2021; clinically no change, patient is stable Awaiting placement, multiple social issues 04/07/2021; awaiting placement social issues. 04/09/2021; patient saturates well on room air PEG tube/PEG feeds, hemodynamically and clinically stable Stable for discharge home with home health versus placement 04/10/21 Awaiting placement 04/11/21 Aawaiting placement 04/12/2021 Awaiting placement 04/13/2021; patient is more alert and awake, noncommunicative Spontaneous opening eyes, vital signs noted, awaiting placement Social issues 04/14/2021; clinically no change Awaiting placement 04/16/2021; patient is awaiting placement 04/17/2021; clinically no change, awaiting placement Social issues 04/18/2021; pending placement 04/19/2021; pending placement 04/20/2021; clinically no change, awaiting placement DC planning per case management History Interval history: I have seen and examined the patient at the bedside Patient's chart and medications reviewed No new events reported by the nursing Awaiting placement Hospitalist Physical - Constitutional Vitals: Temp Pulse Resp BP Pulse Ox 97.2 F L 105 H 18 115/62 96 04/20/21 06:24 04/20/21 06:24 04/20/21 06:24 04/20/21 06:24 04/20/21 06:24 General appearance: Present: no acute distress, well-nourished, obese, other (Noncommunicative) - EENT Eyes: Absent: scleral icterus, conjunctival injection - Neck Neck: Present: supple, normal ROM - Respiratory Respiratory effort: normal Respiratory: bilateral: diminished, negative: rales, rhonchi, wheezing - Cardiovascular Rhythm: regular Heart Sounds: Present: S1 & S2 - Extremities Extremities: no ischemia, No edema - Abdominal General gastrointestinal: soft, non-tender, non-distended, normal bowel sounds - Integumentary Integumentary: Present: clear, warm - Psychiatric Psychiatric: other (Noncommunicative) - Neurologic Neurologic: other (Noncommunicative) HEART Score - HEART Score Age: < 45 Risk factors: 1-2 risk factors - Critical Actions Critical Actions: >7 pts:50-65% risk of adverse cardiac event. Early invasive measures Results - Labs CBC & Chem 7: 03/16/21 04:42 04/16/21 08:37 Labs: Laboratory Last Values WBC 9.4 K/mm3 (4.5-11.0) 03/16/21 04:42 RBC 5.06 M/mm3 (3.65-5.03) H 03/16/21 04:42 Hgb 12.2 gm/dl (10.1-14.3) 03/16/21 04:42 Hgb Comment See scanned result 10/04/20 Unknown Hct 37.6 % (30.3-42.9) 03/16/21 04:42 MCV 74 fl (79-97) L 03/16/21 04:42 MCH 24 pg (28-32) L 03/16/21 04:42 MCHC 33 % (30-34) 03/16/21 04:42 RDW 15.8 % (13.2-15.2) H 03/16/21 04:42 Plt Count 311 K/mm3 (140-440) 03/16/21 04:42 Lymph % (Auto) 33.5 % (13.4-35.0) 03/16/21 04:42 [place] % (Auto) 8.1 % (0.0-7.3) H 03/16/21 04:42 Eos % (Auto) 1.7 % (0.0-4.3) 03/16/21 04:42 Baso % (Auto) 0.5 % (0.0-1.8) 03/16/21 04:42 Lymph # (Auto) 3.1 K/mm3 (1.2-5.4) 03/16/21 04:42 [place] # (Auto) 0.8 K/mm3 (0.0-0.8) 03/16/21 04:42 Eos # (Auto) 0.2 K/mm3 (0.0-0.4) 03/16/21 04:42 Baso # (Auto) 0.0 K/mm3 (0.0-0.1) 03/16/21 04:42 Add Manual Diff Complete 02/09/21 10:59 Total Counted 100 02/09/21 10:59 Seg Neutrophils % 56.2 % (40.0-70.0) 03/16/21 04:42 Seg Neuts % (Manual) 58.0 % (40.0-70.0) 02/09/21 10:59 Band Neutrophils % 2.0 % 10/15/20 05:50 Lymphocytes % (Manual) 29.0 % (13.4-35.0) 02/09/21 10:59 Reactive Lymphs % (Man) 1.0 % 10/02/20 12:18 Monocytes % (Manual) 13.0 % (0.0-7.3) H 02/09/21 10:59 Eosinophils % (Manual) 1.0 % (0.0-4.3) 10/29/20 07:56 Myelocytes % 2.0 % 10/02/20 13:05 Metamyelocytes % 1.0 % 10/14/20 04:00 Nucleated RBC % Not Reportable 02/09/21 10:59 Seg Neutrophils # 5.3 K/mm3 (1.8-7.7) 03/16/21 04:42 Seg Neutrophils # Man 3.7 K/mm3 (1.8-7.7) 02/09/21 10:59 Band Neutrophils # 0.0 K/mm3 02/09/21 10:59 Lymphocytes # (Manual) 1.8 K/mm3 (1.2-5.4) 02/09/21 10:59 Abs React Lymphs (Man) 0.0 K/mm3 02/09/21 10:59 Monocytes # (Manual) 0.8 K/mm3 (0.0-0.8) 02/09/21 10:59 Eosinophils # (Manual) 0.0 K/mm3 (0.0-0.4) 02/09/21 10:59 Basophils # (Manual) 0.0 K/mm3 (0.0-0.1) 02/09/21 10:59 Metamyelocytes # 0.0 K/mm3 02/09/21 10:59 Myelocytes # 0.0 K/mm3 02/09/21 10:59 Promyelocytes # 0.0 K/mm3 02/09/21 10:59 Blast Cells # 0.0 K/mm3 02/09/21 10:59 WBC Morphology Not Reportable 02/09/21 10:59 Hypersegmented Neuts Not Reportable 02/09/21 10:59 Hyposegmented Neuts Not Reportable 02/09/21 10:59 Hypogranular Neuts Not Reportable 02/09/21 10:59 Smudge Cells Not Reportable 02/09/21 10:59 Toxic Granulation Not Reportable 02/09/21 10:59 Toxic Vacuolation Not Reportable 02/09/21 10:59 Dohle Bodies Not Reportable 02/09/21 10:59 Pelger-Huet Anomaly Not Reportable 02/09/21 10:59 Ester Rods Not Reportable 02/09/21 10:59 Platelet Estimate Consistent w auto 02/09/21 10:59 Clumped Platelets Not Reportable 02/09/21 10:59 Plt Clumps, EDTA Not Reportable 02/09/21 10:59 Large Platelets Few 02/09/21 10:59 Giant Platelets Not Reportable 02/09/21 10:59 Platelet Satelliting Not Reportable 02/09/21 10:59 Plt Morphology Comment Not Reportable 02/09/21 10:59 RBC Morphology Not Reportable 02/09/21 10:59 Dimorphic RBCs Not Reportable 02/09/21 10:59 Polychromasia Not Reportable 02/09/21 10:59 Hypochromasia 1+ 02/09/21 10:59 Poikilocytosis Not Reportable 02/09/21 10:59 Anisocytosis Not Reportable 02/09/21 10:59 Microcytosis Not Reportable 02/09/21 10:59 Macrocytosis Not Reportable 02/09/21 10:59 Spherocytes Not Reportable 02/09/21 10:59 Pappenheimer Bodies Not Reportable 02/09/21 10:59 Sickle Cells Not Reportable 02/09/21 10:59 Target Cells Not Reportable 02/09/21 10:59 Tear Drop Cells Not Reportable 02/09/21 10:59 Ovalocytes Not Reportable 02/09/21 10:59 Stomatocytes Few 10/14/20 04:00 Helmet Cells Not Reportable 02/09/21 10:59 Burk-Chapman Bodies Not Reportable 02/09/21 10:59 [place] Rings Not Reportable 02/09/21 10:59 [place] Cells Not Reportable 02/09/21 10:59 Bite Cells Not Reportable 02/09/21 10:59 Crenated Cell Not Reportable 02/09/21 10:59 Elliptocytes Not Reportable 02/09/21 10:59 Acanthocytes (Spur) Not Reportable 02/09/21 10:59 Rouleaux Not Reportable 02/09/21 10:59 Hemoglobin C Crystals Not Reportable 02/09/21 10:59 Schistocytes Not Reportable 02/09/21 10:59 Malaria parasites Not Reportable 02/09/21 10:59 Sickle Cell Solubility See scanned result 10/04/20 Unknown Hemoglobin A See scanned result 10/04/20 Unknown Hemoglobin A2 See scanned result 10/04/20 Unknown Hemoglobin A2 Prime See scanned result 10/04/20 Unknown Hemoglobin C See scanned result 10/04/20 Unknown Hemoglobin D See scanned result 10/04/20 Unknown Hemoglobin E See scanned result 10/04/20 Unknown Hgb F Diffential Stain See scanned result 10/04/20 Unknown Hemoglobin F Quant See scanned result 10/04/20 Unknown Hemoglobin G See scanned result 10/04/20 Unknown Hemoglobin S See scanned result 10/04/20 Unknown Hemoglobin [facility] See scanned result 10/04/20 Unknown Hemoglobin [place] See scanned result 10/04/20 Unknown Hemoglobin Analilia See scanned result 10/04/20 Unknown Variant Hemoglobin See scanned result 10/04/20 Unknown Abnorm Hgb IEF Confirm See scanned result 10/04/20 Unknown Hemoglobin Interpret See scanned result 10/04/20 Unknown Hemoglobinopathy Note See scanned result 10/04/20 Unknown Sharad Bodies Not Reportable 02/09/21 10:59 Hem Pathologist Commnt No 02/09/21 10:59 PT 13.6 Sec. (12.2-14.9) 10/21/20 13:54 INR 1.06 (0.87-1.13) 10/21/20 13:54 APTT 31.6 Sec. (24.2-36.6) 10/03/20 00:40 Fibrinogen 336 mg/dl (211-480) 10/04/20 10:00 D-Dimer 1974.47 ng/mlDDU (0-234) H 11/11/20 13:50 ABG pH 7.459 pH Units (7.350-7.450) H 10/26/20 10:30 POC ABG pCO2 20.7 mmHg (32.0-48.0) L 10/13/20 07:18 ABG pCO2 32.4 mm Hg 10/26/20 10:30 POC ABG pO2 137.9 mmHg (83-108) H 10/13/20 07:18 ABG pO2 112.2 mm Hg (80.0-90.0) H 10/26/20 10:30 POC ABG HCO3 14.8 10/13/20 07:18 ABG HCO3 22.5 mmol/L (20.0-26.0) 10/26/20 10:30 ABG O2 Saturation 98.2 % (95.0-99.0) 10/26/20 10:30 ABG O2 Content 18.5 (0.0-44) 10/26/20 10:30 POC ABG Base Excess -6.9 10/13/20 07:18 ABG Base Excess -0.6 mmol/L (-2.0-3.0) 10/26/20 10:30 ABG Hemoglobin 13.5 gm/dl (12.0-16.0) 10/26/20 10:30 ABG Oxyhemoglobin 98.3 (94-98) H 10/13/20 07:18 ABG Carboxyhemoglobin 1.3 % (0.0-5.0) 10/26/20 10:30 ABG Methemoglobin 0.5 % (0.0-1.5) 10/26/20 10:30 ABG Sodium 135.9 mmol/L (136.0-145.0) L 10/13/20 07:18 ABG Potassium 3.7 mmol/L (3.40-4.50) 10/13/20 07:18 ABG Chloride 111.0 mmol/L (98-107) H 10/13/20 07:18 ABG Glucose 109 mg/dL (65-95) H 10/13/20 07:18 VBG pH 6.949 (7.320-7.420) L* 10/02/20 Unknown Oxyhemoglobin 96.5 % (95.0-99.0) 10/26/20 10:30 Carboxyhemoglobin 0.3 (0.5-1.5) L 10/13/20 07:18 FiO2 25 % 10/26/20 10:30 Sodium 140 mmol/L (137-145) 04/16/21 08:37 Potassium 5.0 mmol/L (3.6-5.0) 04/16/21 08:37 Chloride 101.6 mmol/L (98-107) 04/16/21 08:37 Carbon Dioxide 24 mmol/L (22-30) 04/16/21 08:37 Anion Gap 19 mmol/L 04/16/21 08:37 BUN 14 mg/dL (7-17) 04/16/21 08:37 Creatinine 0.5 mg/dL (0.6-1.2) L 04/16/21 08:37 Estimated GFR > 60 ml/min 04/16/21 08:37 BUN/Creatinine Ratio 28 % 04/16/21 08:37 Glucose 78 mg/dL (65-100) 04/16/21 08:37 POC Glucose 91 mg/dL (70-105) 04/20/21 07:01 Random Insulin 43.2 uIU/mL (<=19.6) H 11/02/20 19:19 Proinsulin See scanned result 11/02/20 19:19 C-Peptide 6.23 ng/mL (0.80-3.85) H 11/02/20 19:19 Lactic Acid 1.90 mmol/L (0.7-2.0) 10/04/20 22:00 Uric Acid 7.5 mg/dL (3.5-7.6) 10/02/20 13:05 Calcium 10.1 mg/dL (8.4-10.2) 04/16/21 08:37 Ionized Calcium 4.4 mg/dL (4.8-5.6) L 10/07/20 21:00 Phosphorus 4.60 mg/dL (2.5-4.5) H 11/13/20 10:05 Magnesium 2.10 mg/dL (1.7-2.3) 11/13/20 10:05 Total Bilirubin 0.40 mg/dL (0.1-1.2) 04/16/21 08:37 AST 45 units/L (5-40) H 04/16/21 08:37 ALT 39 units/L (7-56) 04/16/21 08:37 Alkaline Phosphatase 145 units/L (35-129) H 04/16/21 08:37 Lactate Dehydrogenase 769 units/L (91-180) H 10/02/20 13:05 C-Reactive Protein 0.70 mg/dL (0.00-1.30) 11/11/20 13:50 NT-Pro-B Natriuret Pep 2788 pg/mL (0-450) H 10/04/20 10:00 Total Protein 7.4 g/dL (6.3-8.2) 04/16/21 08:37 Albumin 4.3 g/dL (3.9-5) 04/16/21 08:37 Albumin/Globulin Ratio 1.4 % 04/16/21 08:37 Procalcitonin < 0.05 ng/mL (<0.15) 03/02/21 02:30 Arterial Blood Glucose 109 mg/dL (65-95) H 10/13/20 07:18 Arterial Blood Ionized Calcium 4.6 mg/dL (4.6-5.3) 10/13/20 07:18 Urine Color Yellow (Yellow) 01/25/21 09:51 Urine Turbidity Cloudy (Clear) 01/25/21 09:51 Urine pH 7.0 (5.0-7.0) 01/25/21 09:51 Ur Specific [place] 1.011 (1.003-1.030) 01/25/21 09:51 Urine Protein <15 mg/dl mg/dL (Negative) 01/25/21 09:51 Urine Glucose (UA) Neg mg/dL (Negative) 01/25/21 09:51 Urine Ketones Neg mg/dL (Negative) 01/25/21 09:51 Urine Blood Neg (Negative) 01/25/21 09:51 Urine Nitrite Neg (Negative) 01/25/21 09:51 Urine Bilirubin Neg (Negative) 01/25/21 09:51 Urine Urobilinogen < 2.0 mg/dL (<2.0) 01/25/21 09:51 Ur Leukocyte Esterase Neg (Negative) 01/25/21 09:51 Urine WBC (Auto) 6.0 /HPF (0.0-6.0) 01/25/21 09:51 Urine RBC (Auto) 3.0 /HPF (0.0-6.0) 01/25/21 09:51 U Epithel Cells (Auto) < 1.0 /HPF (0-13.0) 01/25/21 09:51 Urine Bacteria (Auto) 1+ /HPF (Negative) 01/18/21 08:47 Urine WBC Clumps 3+ /HPF 11/11/20 13:50 Calcium Oxalate Crystal Few 11/11/20 13:50 Urine Mucus Few /HPF 01/25/21 09:51 Urine Yeast (Budding) 2+ /HPF 01/25/21 09:51 Vancomycin Trough 12.6 ug/mL (5.0-20.0) 10/21/20 13:54 Random Vancomycin 10.7 ug/mL (0-40.0) 10/16/20 13:09 Phenytoin 5.7 ug/mL (10.0-20.0) L 10/13/20 07:00 C. difficile Tox (PCR) Positive (Negative) 10/16/20 10:22 Coronavirus (PCR) Negative (Negative) 10/08/20 14:15 Blood Type O POSITIVE 10/02/20 12:50 Antibody Screen Negative 10/02/20 12:50 Crossmatch See Detail 10/02/20 12:50 - Diagnostic Impressions Diagnostic Impressions: Echocardiogram 10/03/20 13:42 Transthoracic Echocardiogram Indication: S/P Cardiac Arrest R/O Cardiomyopathy BP: 133/71 Conclusions *Global left ventricular systolic function is normal. *The estimated ejection fraction is 60-65%. *There is trace of mitral regurgitation. *The right 0heart chambers are both slightly dilated. *There is mild tricuspid regurgitation. *There is mild-moderate pulmonary hypertension. *The right ventricular systolic pressure is calculated at 44 mmHg. *The study quality is technically difficult. Findings Procedure Info: The study quality is technically difficult. The study is technically limited due to patient body habitus. The study was technically limited due to the patient's inability to lay in the left lateral decubitus position. Left Ventricle: The left ventricular chamber size is normal. There is no left ventricular hypertrophy. Global left ventricular systolic function is normal. The estimated ejection fraction is 60-65%. Left Atrium: The left atrial chamber size is normal. Right Ventricle: The right ventricle is slightly dilated. Right Atrium: The right atrium is mildly dilated. Aortic Valve: The aortic valve leaflets are mildly thickened. There is no evidence of aortic regurgitation. There is no evidence of aortic stenosis. Mitral Valve: The mitral valve leaflets are mildly thickened. There is trace of mitral regurgitation. There is no evidence of mitral stenosis. Tricuspid Valve: There is mild tricuspid regurgitation. The right ventricular systolic pressure is calculated at 44 mmHg. There is evidence of mild pulmonary hypertension. Pulmonic Valve: There is trace pulmonic regurgitation. Pericardium: There is no pericardial effusion. Aorta: There is no dilatation of the ascending aorta. There is no dilatation of the aortic root. Venous: The inferior vena cava is dilated. Measurements Chambers 2D Name Value Normal Range IVSd (2D) 1 cm (0.6 - 1.1) LVPWd (2D) 1.01 cm (0.6 - 1.1) LVIDd (2D) 4.58 cm (3.7 - 5.6) LVIDs (2D) 3.17 cm (2 - 3.8) LV FS (2D) 30.93 % - EF Teichholz (2D) 58.66 % - Ao root diameter (2D) 2.94 cm (2 - 3.7) Volumes/Mass Name Value Normal Range LA ESV SP 4CH (A/L) 72.82 ml - LA ESV SP 2CH (A/L) 66.86 ml - LA ESV BP (A/L) 74.49 ml - LA ESV SP 4CH (MOD) 71.03 ml - LA ESV SP 2CH (MOD) 64.3 ml - LV EDV SP 4CH (MOD) 98.82 ml - LV ESV SP 4CH (MOD) 24.8 ml - EF SP 4CH (MOD) 74.9 % - LV EDV SP 2CH (MOD) 86.1 ml - LV ESV SP 2CH (MOD) 36.93 ml - EF SP 2CH (MOD) 57.11 % - LV EDV BP 94.4 ml - LV ESV BP 32.66 ml - BP EF (MOD) 65.4 % - Diastolic/Systolic Function Name Value Normal Range MV E-wave Vmax 1.04 m/sec - MV deceleration time 160.46 msec - MV A-wave Vmax 0.92 m/sec - MV E:A ratio 1.14 ratio - Aortic Valve Name Value Normal Range AV Vmax 2.12 m/sec - AV VTI 22.37 cm - AV peak gradient 17.95 mmHg - AV mean gradient 7.29 mmHg - LVOT diameter 2.01 cm - LVOT Vmax 1.8 m/sec - LVOT VTI 27.17 cm - LVOT peak gradient 12.91 mmHg - LVOT mean gradient 6.83 mmHg - SV LVOT 86.42 ml - ANITA (continuity Vmax) 2.7 cm2 - ANITA (continuity VTI) 3.86 cm2 - Ascending Ao 3.18 cm - Tricuspid Valve Name Value Normal Range TV E-wave Vmax 0.88 m/sec - TR Vmax 3.01 m/sec - TR peak gradient 36.27 mmHg - RAP 8 mmHg - RVSP 44 mmHg - IVC diameter 2.65 cm (1.2 - 2.3) Pulmonic Valve/Qp:Qs Name Value Normal Range PV Vmax 1.22 m/sec - PV peak gradient 5.91 mmHg - RVOT Vmax 0.87 m/sec - RVOT VTI 13.32 cm - RVOT peak gradient 3 mmHg - PV acceleration time 110.37 msec - [place]/IV: Voiding Method Incontinent IV Catheter Type [Right Foot] INT / Saline Lock IV Catheter Type [Left Forearm Peripheral IV ] IV Catheter Type [Left Wrist] INT / Saline Lock IV Catheter Type [Right Hand] INT / Saline Lock IV Catheter Type [Right INT / Saline Lock Antecubital] IV Catheter Type [Right Upper Mid-line arm] IV Catheter Type [Left Triple Lumen Cath Internal Jugular] IV Catheter Type [Left Hand] Peripheral IV IV Catheter Type [Left Peripheral IV Antecubital] Active Medications - Current Medications Current Medications: Generic Name Dose Route Start Last Admin Trade Name Freq PRN Reason Stop Dose Admin Acetaminophen 650 mg 10/05/20 16:34 04/15/21 15:02 Acetaminophen 325 Mg/10.15 Ml Oral Liqd Unit Dose FEEDTUBE 650 mg Q6H PRN Administration Non Cardiac Pain or Temp>100.5 Albuterol 2.5 mg 11/05/20 13:03 11/06/20 13:04 Albuterol 2.5 Mg/3 Ml Nebu IH 2.5 mg Q4HRT PRN Administration Shortness Of Breath Alprazolam 0.25 mg 01/20/21 13:33 04/20/21 09:08 Alprazolam 0.25 Mg Tab PO 0.25 mg Q8H PRN Administration Anxiety Lipase/Protease/Amylase 1 each 10/05/20 11:09 Lipase 10,500/Protease 25,000/Amylase 43,750 (Units) Dr Barakat FEEDTUBE PRN PRN For Clogged Feeding Tube Enoxaparin Sodium 40 mg 10/22/20 10:00 04/20/21 09:09 Enoxaparin 40 Mg/0.4 Ml Inj SUB-Q 40 mg DAILY ERINN Administration Protocol Famotidine 20 mg 10/07/20 10:00 04/20/21 09:10 Famotidine 20 Mg Tab PO 20 mg BID ERINN Administration Hydrophilic Ointment 1 applic 01/03/21 13:00 02/16/21 09:56 Lip Therapy Vaseline TP 1 applic DIRECT PRN Administration Dry Lips Metoprolol Tartrate 50 mg 02/02/21 16:01 04/20/21 09:08 Metoprolol Tartrate 25 Mg Tab PO 50 mg BID ERINN Administration Morphine Sulfate 2 mg 01/20/21 13:33 Morphine 2 Mg/1 Ml Inj IV Q4H PRN Pain, Moderate (4-6) Ondansetron HCl 4 mg 02/10/21 11:38 02/10/21 13:18 Ondansetron 4 Mg/2 Ml Inj IV 4 mg Q4H PRN Administration Nausea And Vomiting Simple Syrup 15 ml 10/05/20 11:09 Simple Syrup 15 Ml FEEDTUBE PRN PRN Hypoglycemia Simple Syrup 30 ml 10/05/20 11:09 03/23/21 06:11 Simple Syrup 15 Ml FEEDTUBE 30 ml PRN PRN Administration Hypoglycemia Sodium Bicarbonate 325 mg 10/05/20 11:09 12/16/20 08:19 Sodium Bicarbonate 325 Mg Tab FEEDTUBE 325 mg PRN PRN Administration For Clogged Feeding Tube Nutrition/Malnutrition Assess - Dietary Evaluation Nutrition/Malnutrition Findings: Nutrition Notes Start: 10/04/20 11:13 Freq: Status: Active Protocol: Document 04/16/21 12:14 (Rec: 04/16/21 12:16 [email or web address]) Nutrition Notes Initial or Follow up Reassessment Other Pertinent Diagnosis s/p cardiac arrest x 2, anoxic brain injury Current Diet TF - Promote at 65ml/hr Labs/Tests Cr 0.5 AST 45 Pertinent Medications Reviewed Height 5 ft 8 in Weight 87 kg [place] Body Weight (kg) 63.63 BMI 29.1 Weight Status Overweight Subjective/Other Information FU for TF tolerance and labs. Pt tolerating TF at goal rate. Percent of energy/protein needs met: 100%/100% Burn Absent Trauma Absent GI Symptoms None Difficulty In Swallowing,Chewing Current % PO Negligible Minimum of two criteria No physical signs of malnutrition #1 Nutrition Diagnosis Inadequate oral intake Diagnosis Progress(for reassessment Continues documentation) Is patient on ventilator? No Is Patient Ambulatory and/or Out of Bed No REE-([facility]-confined to bed) 1955.228 Calculation Used for Recommendations [facility] Additional Notes Pro needs 0.8-1g/k-89g/ day Fluid needs 1ml/kcal Nutrition Intervention Change Diet Order: Continue Nutrition Support: Continue Promote at 65 mL/hr Flush 100 ml q4h Kcal 1,560 Protein (gm) 98 Fluid (mL) 1,309 Goal #1 TF tolerance Goal #2 TF to meet at least 75% estimated energy and protein needs. Follow-Up By: 04/23/21 Additional Comments FU for stable TF
--- NOTE | 2021-04-21 08:35 | Progress Note ---
Assessment and Plan Assessment and plan: Clinically no change, encephalopathic, noncommunicative, awaiting placement, social issues Continue current supportive care --Patient had cardiac arrest 10/07/2020 Status post CPR per ACLS protocol --Acute anoxic brain injury; Neurology extensively evaluated Continue supportive care --Acute hypoxic respiratory failure; Saturating room air, supportive care COVID-19 negative C. difficile positive; completed oral vancomycin Patient on contact isolation --Sepsis; completed treatment Continue to monitor off antibiotics ID following --COVID-19 test negative; 10/08/2020 --C. difficile colitis test; positive; 10/16/2020 --Acute metabolic encephalopathy --Acute kidney injury; vasomotor nephropathy Resolved, renal function within normal limits, closely monitor --Shock; requiring pressors, monitor off pressors Blood pressures reasonable level --DIC; sepsis, septic shock, resolved --History of preeclampsia; / hemorrhage Status post hysterectomy --History of C. difficile colitis; completed oral vancomycin --DVT/SVT and right upper extremity Very poor prognosis, Consults recommendations noted and appreciated We will closely monitor the patient and adjust management as needed Plan of care reviewed with the patient's nurse. Waiting for senior living facility placement DC planning per case management, Brief history/daily hospital course 30 y/o female patient with Eclampsia/help syndrome, s/p emergent section with DIC, hemorrhage, supracervical abdominal hysterectomy, acute respiratory failure , tracheostomy on T-piece with morbid obesity, s/p cardiac arrest 12/08/2019 status post CPR per ACLS, acute hypoxic brain injury Acute kidney injury improved, severe shock requiring pressors, DIC septic shock improved, history of C. difficile colitis completed treatment with vancomycin. Tracheostomy on T-piece, continues to require 5 L of oxygen. Herpetic flareup, ID started treatment with antibiotics, patient is waiting for SNF placement DC planning per case management 10/02/2020---03/15/2021 daily hospital course reviewed 03/16/2021; Awaiting placement. Patient is on PEG tube feeding. Saturating well on room air. Patient is mildly tachycardic. Pending placement. 03/17/2021; Awaiting placement. Patient is on PEG tube feeding. Saturating well on room air. Patient is mildly tachycardic. Pending placement. 03/18/2021; awaiting placement. 03/19/2021; awaiting placement. 03/20/2021; awaiting placement. 03/21/21; awaiting placement. 03/22/2021; Awaiting placement. Patient is on PEG tube feeding. Saturating well on room air. Patient is mildly tachycardic. Pending placement. 03/23/2021; multiple social issues, awaiting LTAC placement 03/24/2021; pending placement. Clinically no change, I discussed with patient's mother extensively, she had numerous questions answered all of them She requested a repeat CT head as she noticed significant change in her daughters level of consciousness. Will check CT head without contrast 03/25/2021; I discussed with patient's mother extensively yesterday 03/24/2021, she requested a repeat CT scan as she feels that patient is responding f/u CT head without contrast 03/24/2021; no acute abnormalities, pronounced diffuse cerebral atrophy. 03/26/2021; awaiting placement, multiple social issues, I called and discussed CT head findings with patient's mother Ms. Santiago She verbalized understanding. Disposition; pending placement 03/30/2021 I resumed service today; Clinically no change, awaiting placement, multiple social issues 03/31/2021; multiple social issues, awaiting placement 04/01/2021; clinically no change, social issues, awaiting placement 04/02/2021; patient response to some sound by moving her head, not purposeful Did not respond to communication, awaiting placement 04/03/2021; pending placement social issues, 04/04/2021; clinically no change, awaiting placement 04/05/2021; awaiting placement, clinically stable 04/06/2021; clinically no change, patient is stable Awaiting placement, multiple social issues 04/07/2021; awaiting placement social issues. 04/09/2021; patient saturates well on room air PEG tube/PEG feeds, hemodynamically and clinically stable Stable for discharge home with home health versus placement 04/10/21 Awaiting placement 04/11/21 Aawaiting placement 04/12/2021 Awaiting placement 04/13/2021; patient is more alert and awake, noncommunicative Spontaneous opening eyes, vital signs noted, awaiting placement Social issues 04/14/2021; clinically no change Awaiting placement 04/16/2021; patient is awaiting placement 04/17/2021; clinically no change, awaiting placement Social issues 04/18/2021; pending placement 04/19/2021; pending placement 04/20/2021; clinically no change, awaiting placement DC planning per case management 04/21/2021; placement per case management History Interval history: I have seen and examined the patient at the bedside this morning Patient's chart and medications reviewed Clinically no change Noncommunicative, alert and awake Vital signs noted Awaiting placement Hospitalist Physical - Constitutional Vitals: Temp Pulse Resp BP Pulse Ox 98.6 F 86 16 102/70 100 04/21/21 05:20 04/21/21 05:20 04/21/21 05:20 04/21/21 05:20 04/21/21 05:20 General appearance: Present: no acute distress, well-nourished, obese, other - EENT Eyes: Present: PERRL, EOM intact - Neck Neck: Present: supple, normal ROM - Respiratory Respiratory effort: normal Respiratory: bilateral: diminished, negative: rales, rhonchi, wheezing - Cardiovascular Rhythm: regular Heart Sounds: Present: S1 & S2 - Extremities Extremities: no ischemia, No edema - Abdominal General gastrointestinal: soft, non-tender, non-distended, normal bowel sounds - Integumentary Integumentary: Present: clear, warm - Psychiatric Psychiatric: other (Noncommunicative) - Neurologic Neurologic: other (Encephalopathy, noncommunicative) HEART Score - HEART Score Age: < 45 Risk factors: 1-2 risk factors - Critical Actions Critical Actions: >7 pts:50-65% risk of adverse cardiac event. Early invasive measures Results - Labs CBC & Chem 7: 03/16/21 04:42 04/16/21 08:37 Labs: Laboratory Last Values WBC 9.4 K/mm3 (4.5-11.0) 03/16/21 04:42 RBC 5.06 M/mm3 (3.65-5.03) H 03/16/21 04:42 Hgb 12.2 gm/dl (10.1-14.3) 03/16/21 04:42 Hgb Comment See scanned result 10/04/20 Unknown Hct 37.6 % (30.3-42.9) 03/16/21 04:42 MCV 74 fl (79-97) L 03/16/21 04:42 MCH 24 pg (28-32) L 03/16/21 04:42 MCHC 33 % (30-34) 03/16/21 04:42 RDW 15.8 % (13.2-15.2) H 03/16/21 04:42 Plt Count 311 K/mm3 (140-440) 03/16/21 04:42 Lymph % (Auto) 33.5 % (13.4-35.0) 03/16/21 04:42 [place] % (Auto) 8.1 % (0.0-7.3) H 03/16/21 04:42 Eos % (Auto) 1.7 % (0.0-4.3) 03/16/21 04:42 Baso % (Auto) 0.5 % (0.0-1.8) 03/16/21 04:42 Lymph # (Auto) 3.1 K/mm3 (1.2-5.4) 03/16/21 04:42 [place] # (Auto) 0.8 K/mm3 (0.0-0.8) 03/16/21 04:42 Eos # (Auto) 0.2 K/mm3 (0.0-0.4) 03/16/21 04:42 Baso # (Auto) 0.0 K/mm3 (0.0-0.1) 03/16/21 04:42 Add Manual Diff Complete 02/09/21 10:59 Total Counted 100 02/09/21 10:59 Seg Neutrophils % 56.2 % (40.0-70.0) 03/16/21 04:42 Seg Neuts % (Manual) 58.0 % (40.0-70.0) 02/09/21 10:59 Band Neutrophils % 2.0 % 10/15/20 05:50 Lymphocytes % (Manual) 29.0 % (13.4-35.0) 02/09/21 10:59 Reactive Lymphs % (Man) 1.0 % 10/02/20 12:18 Monocytes % (Manual) 13.0 % (0.0-7.3) H 02/09/21 10:59 Eosinophils % (Manual) 1.0 % (0.0-4.3) 10/29/20 07:56 Myelocytes % 2.0 % 10/02/20 13:05 Metamyelocytes % 1.0 % 10/14/20 04:00 Nucleated RBC % Not Reportable 02/09/21 10:59 Seg Neutrophils # 5.3 K/mm3 (1.8-7.7) 03/16/21 04:42 Seg Neutrophils # Man 3.7 K/mm3 (1.8-7.7) 02/09/21 10:59 Band Neutrophils # 0.0 K/mm3 02/09/21 10:59 Lymphocytes # (Manual) 1.8 K/mm3 (1.2-5.4) 02/09/21 10:59 Abs React Lymphs (Man) 0.0 K/mm3 02/09/21 10:59 Monocytes # (Manual) 0.8 K/mm3 (0.0-0.8) 02/09/21 10:59 Eosinophils # (Manual) 0.0 K/mm3 (0.0-0.4) 02/09/21 10:59 Basophils # (Manual) 0.0 K/mm3 (0.0-0.1) 02/09/21 10:59 Metamyelocytes # 0.0 K/mm3 02/09/21 10:59 Myelocytes # 0.0 K/mm3 02/09/21 10:59 Promyelocytes # 0.0 K/mm3 02/09/21 10:59 Blast Cells # 0.0 K/mm3 02/09/21 10:59 WBC Morphology Not Reportable 02/09/21 10:59 Hypersegmented Neuts Not Reportable 02/09/21 10:59 Hyposegmented Neuts Not Reportable 02/09/21 10:59 Hypogranular Neuts Not Reportable 02/09/21 10:59 Smudge Cells Not Reportable 02/09/21 10:59 Toxic Granulation Not Reportable 02/09/21 10:59 Toxic Vacuolation Not Reportable 02/09/21 10:59 Dohle Bodies Not Reportable 02/09/21 10:59 Pelger-Huet Anomaly Not Reportable 02/09/21 10:59 Ester Rods Not Reportable 02/09/21 10:59 Platelet Estimate Consistent w auto 02/09/21 10:59 Clumped Platelets Not Reportable 02/09/21 10:59 Plt Clumps, EDTA Not Reportable 02/09/21 10:59 Large Platelets Few 02/09/21 10:59 Giant Platelets Not Reportable 02/09/21 10:59 Platelet Satelliting Not Reportable 02/09/21 10:59 Plt Morphology Comment Not Reportable 02/09/21 10:59 RBC Morphology Not Reportable 02/09/21 10:59 Dimorphic RBCs Not Reportable 02/09/21 10:59 Polychromasia Not Reportable 02/09/21 10:59 Hypochromasia 1+ 02/09/21 10:59 Poikilocytosis Not Reportable 02/09/21 10:59 Anisocytosis Not Reportable 02/09/21 10:59 Microcytosis Not Reportable 02/09/21 10:59 Macrocytosis Not Reportable 02/09/21 10:59 Spherocytes Not Reportable 02/09/21 10:59 Pappenheimer Bodies Not Reportable 02/09/21 10:59 Sickle Cells Not Reportable 02/09/21 10:59 Target Cells Not Reportable 02/09/21 10:59 Tear Drop Cells Not Reportable 02/09/21 10:59 Ovalocytes Not Reportable 02/09/21 10:59 Stomatocytes Few 10/14/20 04:00 Helmet Cells Not Reportable 02/09/21 10:59 [place] Bodies Not Reportable 02/09/21 10:59 [place] Rings Not Reportable 02/09/21 10:59 [place] Cells Not Reportable 02/09/21 10:59 Bite Cells Not Reportable 02/09/21 10:59 Crenated Cell Not Reportable 02/09/21 10:59 Elliptocytes Not Reportable 02/09/21 10:59 Acanthocytes (Spur) Not Reportable 02/09/21 10:59 Rouleaux Not Reportable 02/09/21 10:59 Hemoglobin C Crystals Not Reportable 02/09/21 10:59 Schistocytes Not Reportable 02/09/21 10:59 Malaria parasites Not Reportable 02/09/21 10:59 Sickle Cell Solubility See scanned result 10/04/20 Unknown Hemoglobin A See scanned result 10/04/20 Unknown Hemoglobin A2 See scanned result 10/04/20 Unknown Hemoglobin A2 Prime See scanned result 10/04/20 Unknown Hemoglobin C See scanned result 10/04/20 Unknown Hemoglobin D See scanned result 10/04/20 Unknown Hemoglobin E See scanned result 10/04/20 Unknown Hgb F Diffential Stain See scanned result 10/04/20 Unknown Hemoglobin F Quant See scanned result 10/04/20 Unknown Hemoglobin G See scanned result 10/04/20 Unknown Hemoglobin S See scanned result 10/04/20 Unknown Hemoglobin [place] See scanned result 10/04/20 Unknown Hemoglobin [place] See scanned result 10/04/20 Unknown Hemoglobin Analilia See scanned result 10/04/20 Unknown Variant Hemoglobin See scanned result 10/04/20 Unknown Abnorm Hgb IEF Confirm See scanned result 10/04/20 Unknown Hemoglobin Interpret See scanned result 10/04/20 Unknown Hemoglobinopathy Note See scanned result 10/04/20 Unknown Sharad Bodies Not Reportable 02/09/21 10:59 Hem Pathologist Commnt No 02/09/21 10:59 PT 13.6 Sec. (12.2-14.9) 10/21/20 13:54 INR 1.06 (0.87-1.13) 10/21/20 13:54 APTT 31.6 Sec. (24.2-36.6) 10/03/20 00:40 Fibrinogen 336 mg/dl (211-480) 10/04/20 10:00 D-Dimer 1974.47 ng/mlDDU (0-234) H 11/11/20 13:50 ABG pH 7.459 pH Units (7.350-7.450) H 10/26/20 10:30 POC ABG pCO2 20.7 mmHg (32.0-48.0) L 10/13/20 07:18 ABG pCO2 32.4 mm Hg 10/26/20 10:30 POC ABG pO2 137.9 mmHg (83-108) H 10/13/20 07:18 ABG pO2 112.2 mm Hg (80.0-90.0) H 10/26/20 10:30 POC ABG HCO3 14.8 10/13/20 07:18 ABG HCO3 22.5 mmol/L (20.0-26.0) 10/26/20 10:30 ABG O2 Saturation 98.2 % (95.0-99.0) 10/26/20 10:30 ABG O2 Content 18.5 (0.0-44) 10/26/20 10:30 POC ABG Base Excess -6.9 10/13/20 07:18 ABG Base Excess -0.6 mmol/L (-2.0-3.0) 10/26/20 10:30 ABG Hemoglobin 13.5 gm/dl (12.0-16.0) 10/26/20 10:30 ABG Oxyhemoglobin 98.3 (94-98) H 10/13/20 07:18 ABG Carboxyhemoglobin 1.3 % (0.0-5.0) 10/26/20 10:30 ABG Methemoglobin 0.5 % (0.0-1.5) 10/26/20 10:30 ABG Sodium 135.9 mmol/L (136.0-145.0) L 10/13/20 07:18 ABG Potassium 3.7 mmol/L (3.40-4.50) 10/13/20 07:18 ABG Chloride 111.0 mmol/L (98-107) H 10/13/20 07:18 ABG Glucose 109 mg/dL (65-95) H 10/13/20 07:18 VBG pH 6.949 (7.320-7.420) L* 10/02/20 Unknown Oxyhemoglobin 96.5 % (95.0-99.0) 10/26/20 10:30 Carboxyhemoglobin 0.3 (0.5-1.5) L 10/13/20 07:18 FiO2 25 % 10/26/20 10:30 Sodium 140 mmol/L (137-145) 04/16/21 08:37 Potassium 5.0 mmol/L (3.6-5.0) 04/16/21 08:37 Chloride 101.6 mmol/L (98-107) 04/16/21 08:37 Carbon Dioxide 24 mmol/L (22-30) 04/16/21 08:37 Anion Gap 19 mmol/L 04/16/21 08:37 BUN 14 mg/dL (7-17) 04/16/21 08:37 Creatinine 0.5 mg/dL (0.6-1.2) L 04/16/21 08:37 Estimated GFR > 60 ml/min 04/16/21 08:37 BUN/Creatinine Ratio 28 % 04/16/21 08:37 Glucose 78 mg/dL (65-100) 04/16/21 08:37 POC Glucose 86 mg/dL (70-105) 04/21/21 05:41 Random Insulin 43.2 uIU/mL (<=19.6) H 11/02/20 19:19 Proinsulin See scanned result 11/02/20 19:19 C-Peptide 6.23 ng/mL (0.80-3.85) H 11/02/20 19:19 Lactic Acid 1.90 mmol/L (0.7-2.0) 10/04/20 22:00 Uric Acid 7.5 mg/dL (3.5-7.6) 10/02/20 13:05 Calcium 10.1 mg/dL (8.4-10.2) 04/16/21 08:37 Ionized Calcium 4.4 mg/dL (4.8-5.6) L 10/07/20 21:00 Phosphorus 4.60 mg/dL (2.5-4.5) H 11/13/20 10:05 Magnesium 2.10 mg/dL (1.7-2.3) 11/13/20 10:05 Total Bilirubin 0.40 mg/dL (0.1-1.2) 04/16/21 08:37 AST 45 units/L (5-40) H 04/16/21 08:37 ALT 39 units/L (7-56) 04/16/21 08:37 Alkaline Phosphatase 145 units/L (35-129) H 04/16/21 08:37 Lactate Dehydrogenase 769 units/L (91-180) H 10/02/20 13:05 C-Reactive Protein 0.70 mg/dL (0.00-1.30) 11/11/20 13:50 NT-Pro-B Natriuret Pep 2788 pg/mL (0-450) H 10/04/20 10:00 Total Protein 7.4 g/dL (6.3-8.2) 04/16/21 08:37 Albumin 4.3 g/dL (3.9-5) 04/16/21 08:37 Albumin/Globulin Ratio 1.4 % 04/16/21 08:37 Procalcitonin < 0.05 ng/mL (<0.15) 03/02/21 02:30 Arterial Blood Glucose 109 mg/dL (65-95) H 10/13/20 07:18 Arterial Blood Ionized Calcium 4.6 mg/dL (4.6-5.3) 10/13/20 07:18 Urine Color Yellow (Yellow) 01/25/21 09:51 Urine Turbidity Cloudy (Clear) 01/25/21 09:51 Urine pH 7.0 (5.0-7.0) 01/25/21 09:51 Ur Specific [place] 1.011 (1.003-1.030) 01/25/21 09:51 Urine Protein <15 mg/dl mg/dL (Negative) 01/25/21 09:51 Urine Glucose (UA) Neg mg/dL (Negative) 01/25/21 09:51 Urine Ketones Neg mg/dL (Negative) 01/25/21 09:51 Urine Blood Neg (Negative) 01/25/21 09:51 Urine Nitrite Neg (Negative) 01/25/21 09:51 Urine Bilirubin Neg (Negative) 01/25/21 09:51 Urine Urobilinogen < 2.0 mg/dL (<2.0) 01/25/21 09:51 Ur Leukocyte Esterase Neg (Negative) 01/25/21 09:51 Urine WBC (Auto) 6.0 /HPF (0.0-6.0) 01/25/21 09:51 Urine RBC (Auto) 3.0 /HPF (0.0-6.0) 01/25/21 09:51 U Epithel Cells (Auto) < 1.0 /HPF (0-13.0) 01/25/21 09:51 Urine Bacteria (Auto) 1+ /HPF (Negative) 01/18/21 08:47 Urine WBC Clumps 3+ /HPF 11/11/20 13:50 Calcium Oxalate Crystal Few 11/11/20 13:50 Urine Mucus Few /HPF 01/25/21 09:51 Urine Yeast (Budding) 2+ /HPF 01/25/21 09:51 Vancomycin Trough 12.6 ug/mL (5.0-20.0) 10/21/20 13:54 Random Vancomycin 10.7 ug/mL (0-40.0) 10/16/20 13:09 Phenytoin 5.7 ug/mL (10.0-20.0) L 10/13/20 07:00 C. difficile Tox (PCR) Positive (Negative) 10/16/20 10:22 Coronavirus (PCR) Negative (Negative) 10/08/20 14:15 Blood Type O POSITIVE 10/02/20 12:50 Antibody Screen Negative 10/02/20 12:50 Crossmatch See Detail 10/02/20 12:50 - Diagnostic Impressions Diagnostic Impressions: Echocardiogram 10/03/20 13:42 Transthoracic Echocardiogram Indication: S/P Cardiac Arrest R/O Cardiomyopathy BP: 133/71 Conclusions *Global left ventricular systolic function is normal. *The estimated ejection fraction is 60-65%. *There is trace of mitral regurgitation. *The right 0heart chambers are both slightly dilated. *There is mild tricuspid regurgitation. *There is mild-moderate pulmonary hypertension. *The right ventricular systolic pressure is calculated at 44 mmHg. *The study quality is technically difficult. Findings Procedure Info: The study quality is technically difficult. The study is technically limited due to patient body habitus. The study was technically limited due to the patient's inability to lay in the left lateral decubitus position. Left Ventricle: The left ventricular chamber size is normal. There is no left ventricular hypertrophy. Global left ventricular systolic function is normal. The estimated ejection fraction is 60-65%. Left Atrium: The left atrial chamber size is normal. Right Ventricle: The right ventricle is slightly dilated. Right Atrium: The right atrium is mildly dilated. Aortic Valve: The aortic valve leaflets are mildly thickened. There is no evidence of aortic regurgitation. There is no evidence of aortic stenosis. Mitral Valve: The mitral valve leaflets are mildly thickened. There is trace of mitral regurgitation. There is no evidence of mitral stenosis. Tricuspid Valve: There is mild tricuspid regurgitation. The right ventricular systolic pressure is calculated at 44 mmHg. There is evidence of mild pulmonary hypertension. Pulmonic Valve: There is trace pulmonic regurgitation. Pericardium: There is no pericardial effusion. Aorta: There is no dilatation of the ascending aorta. There is no dilatation of the aortic root. Venous: The inferior vena cava is dilated. Measurements Chambers 2D Name Value Normal Range IVSd (2D) 1 cm (0.6 - 1.1) LVPWd (2D) 1.01 cm (0.6 - 1.1) LVIDd (2D) 4.58 cm (3.7 - 5.6) LVIDs (2D) 3.17 cm (2 - 3.8) LV FS (2D) 30.93 % - EF Teichholz (2D) 58.66 % - Ao root diameter (2D) 2.94 cm (2 - 3.7) Volumes/Mass Name Value Normal Range LA ESV SP 4CH (A/L) 72.82 ml - LA ESV SP 2CH (A/L) 66.86 ml - LA ESV BP (A/L) 74.49 ml - LA ESV SP 4CH (MOD) 71.03 ml - LA ESV SP 2CH (MOD) 64.3 ml - LV EDV SP 4CH (MOD) 98.82 ml - LV ESV SP 4CH (MOD) 24.8 ml - EF SP 4CH (MOD) 74.9 % - LV EDV SP 2CH (MOD) 86.1 ml - LV ESV SP 2CH (MOD) 36.93 ml - EF SP 2CH (MOD) 57.11 % - LV EDV BP 94.4 ml - LV ESV BP 32.66 ml - BP EF (MOD) 65.4 % - Diastolic/Systolic Function Name Value Normal Range MV E-wave Vmax 1.04 m/sec - MV deceleration time 160.46 msec - MV A-wave Vmax 0.92 m/sec - MV E:A ratio 1.14 ratio - Aortic Valve Name Value Normal Range AV Vmax 2.12 m/sec - AV VTI 22.37 cm - AV peak gradient 17.95 mmHg - AV mean gradient 7.29 mmHg - LVOT diameter 2.01 cm - LVOT Vmax 1.8 m/sec - LVOT VTI 27.17 cm - LVOT peak gradient 12.91 mmHg - LVOT mean gradient 6.83 mmHg - SV LVOT 86.42 ml - ANITA (continuity Vmax) 2.7 cm2 - ANITA (continuity VTI) 3.86 cm2 - Ascending Ao 3.18 cm - Tricuspid Valve Name Value Normal Range TV E-wave Vmax 0.88 m/sec - TR Vmax 3.01 m/sec - TR peak gradient 36.27 mmHg - RAP 8 mmHg - RVSP 44 mmHg - IVC diameter 2.65 cm (1.2 - 2.3) Pulmonic Valve/Qp:Qs Name Value Normal Range PV Vmax 1.22 m/sec - PV peak gradient 5.91 mmHg - RVOT Vmax 0.87 m/sec - RVOT VTI 13.32 cm - RVOT peak gradient 3 mmHg - PV acceleration time 110.37 msec - [place]/IV: Voiding Method Incontinent IV Catheter Type [Right Foot] INT / Saline Lock IV Catheter Type [Left Forearm Peripheral IV ] IV Catheter Type [Left Wrist] INT / Saline Lock IV Catheter Type [Right Hand] INT / Saline Lock IV Catheter Type [Right INT / Saline Lock Antecubital] IV Catheter Type [Right Upper Mid-line arm] IV Catheter Type [Left Triple Lumen Cath Internal Jugular] IV Catheter Type [Left Hand] Peripheral IV IV Catheter Type [Left Peripheral IV Antecubital] Active Medications - Current Medications Current Medications: Generic Name Dose Route Start Last Admin Trade Name Freq PRN Reason Stop Dose Admin Acetaminophen 650 mg 10/05/20 16:34 04/15/21 15:02 Acetaminophen 325 Mg/10.15 Ml Oral Liqd Unit Dose FEEDTUBE 650 mg Q6H PRN Administration Non Cardiac Pain or Temp>100.5 Albuterol 2.5 mg 11/05/20 13:03 11/06/20 13:04 Albuterol 2.5 Mg/3 Ml Nebu IH 2.5 mg Q4HRT PRN Administration Shortness Of Breath Alprazolam 0.25 mg 01/20/21 13:33 04/20/21 22:30 Alprazolam 0.25 Mg Tab PO 0.25 mg Q8H PRN Administration Anxiety Lipase/Protease/Amylase 1 each 10/05/20 11:09 Lipase 10,500/Protease 25,000/Amylase 43,750 (Units) Dr Barakat [place] PRN PRN For Clogged Feeding Tube Enoxaparin Sodium 40 mg 10/22/20 10:00 04/20/21 09:09 Enoxaparin 40 Mg/0.4 Ml Inj SUB-Q 40 mg DAILY ERINN Administration Protocol Famotidine 20 mg 10/07/20 10:00 04/20/21 22:27 Famotidine 20 Mg Tab PO 20 mg BID ERINN Administration Hydrophilic Ointment 1 applic 01/03/21 13:00 02/16/21 09:56 Lip Therapy Vaseline TP 1 applic DIRECT PRN Administration Dry Lips Metoprolol Tartrate 50 mg 02/02/21 16:01 04/20/21 22:27 Metoprolol Tartrate 25 Mg Tab PO 50 mg BID ERINN Administration Morphine Sulfate 2 mg 01/20/21 13:33 Morphine 2 Mg/1 Ml Inj IV Q4H PRN Pain, Moderate (4-6) Ondansetron HCl 4 mg 02/10/21 11:38 02/10/21 13:18 Ondansetron 4 Mg/2 Ml Inj IV 4 mg Q4H PRN Administration Nausea And Vomiting Simple Syrup 15 ml 10/05/20 11:09 Simple Syrup 15 Ml FEEDTUBE PRN PRN Hypoglycemia Simple Syrup 30 ml 10/05/20 11:09 03/23/21 06:11 Simple Syrup 15 Ml FEEDTUBE 30 ml PRN PRN Administration Hypoglycemia Sodium Bicarbonate 325 mg 10/05/20 11:09 12/16/20 08:19 Sodium Bicarbonate 325 Mg Tab FEEDTUBE 325 mg PRN PRN Administration For Clogged Feeding Tube Nutrition/Malnutrition Assess - Dietary Evaluation Nutrition/Malnutrition Findings: Nutrition Notes Start: 10/04/20 11:13 Freq: Status: Active Protocol: Document 04/16/21 12:14 (Rec: 04/16/21 12:16 [email or web address]) Nutrition Notes Initial or Follow up Reassessment Other Pertinent Diagnosis s/p cardiac arrest x 2, anoxic brain injury Current Diet TF - Promote at 65ml/hr Labs/Tests Cr 0.5 AST 45 Pertinent Medications Reviewed Height 5 ft 8 in Weight 87 kg [place] Body Weight (kg) 63.63 BMI 29.1 Weight Status Overweight Subjective/Other Information FU for TF tolerance and labs. Pt tolerating TF at goal rate. Percent of energy/protein needs met: 100%/100% Burn Absent Trauma Absent GI Symptoms None Difficulty In Swallowing,Chewing Current % PO Negligible Minimum of two criteria No physical signs of malnutrition #1 Nutrition Diagnosis Inadequate oral intake Diagnosis Progress(for reassessment Continues documentation) Is patient on ventilator? No Is Patient Ambulatory and/or Out of Bed No REE-([facility]-confined to bed) 1955.228 Calculation Used for Recommendations [facility] Additional Notes Pro needs 0.8-1g/k-89g/ day Fluid needs 1ml/kcal Nutrition Intervention Change Diet Order: Continue Nutrition Support: Continue Promote at 65 mL/hr Flush 100 ml q4h Kcal 1,560 Protein (gm) 98 Fluid (mL) 1,309 Goal #1 TF tolerance Goal #2 TF to meet at least 75% estimated energy and protein needs. Follow-Up By: 04/23/21 Additional Comments FU for stable TF
[2021-04-21] MEDS: ENOXAPARIN 40 MG/0.4 ML INJ SUB-Q SCH (09:01)
[2021-04-21] MEDS: METOPROLOL TARTRATE 25 MG TAB PO SCH ×2 (09:02→22:33)
[2021-04-21] MEDS: FAMOTIDINE 20 MG TAB PO SCH ×2 (09:02→22:33)
[2021-04-21] MEDS: ALPRAZolam 0.25 MG TAB PO PRN (22:36)
[2021-04-22] MEDS: FAMOTIDINE 20 MG TAB PO SCH ×2 (13:28→23:14)
[2021-04-22] MEDS: ENOXAPARIN 40 MG/0.4 ML INJ SUB-Q SCH (13:28)
[2021-04-22] MEDS: METOPROLOL TARTRATE 25 MG TAB PO SCH ×2 (13:28→23:12)
--- NOTE | 2021-04-22 18:30 | Progress Note ---
Assessment and Plan Assessment and plan: Clinically no change, encephalopathic, noncommunicative, awaiting placement, social issues Continue current supportive care --Patient had cardiac arrest 10/07/2020 Status post CPR per ACLS protocol --Acute anoxic brain injury; Neurology extensively evaluated Continue supportive care --Acute hypoxic respiratory failure; Saturating room air, supportive care COVID-19 negative C. difficile positive; completed oral vancomycin Patient on contact isolation --Sepsis; completed treatment Continue to monitor off antibiotics ID following --COVID-19 test negative; 10/08/2020 --C. difficile colitis test; positive; 10/16/2020 --Acute metabolic encephalopathy --Acute kidney injury; vasomotor nephropathy Resolved, renal function within normal limits, closely monitor --Shock; requiring pressors, monitor off pressors Blood pressures reasonable level --DIC; sepsis, septic shock, resolved --History of preeclampsia; / hemorrhage Status post hysterectomy --History of C. difficile colitis; completed oral vancomycin --DVT/SVT and right upper extremity Very poor prognosis, Consults recommendations noted and appreciated We will closely monitor the patient and adjust management as needed Plan of care reviewed with the patient's nurse. Waiting for longterm facility placement DC planning per case management, Brief history/daily hospital course 30 y/o female patient with Eclampsia/help syndrome, s/p emergent section with DIC, hemorrhage, supracervical abdominal hysterectomy, acute respiratory failure , tracheostomy on T-piece with morbid obesity, s/p cardiac arrest 12/08/2019 status post CPR per ACLS, acute hypoxic brain injury Acute kidney injury improved, severe shock requiring pressors, DIC septic shock improved, history of C. difficile colitis completed treatment with vancomycin. Tracheostomy on T-piece, continues to require 5 L of oxygen. Herpetic flareup, ID started treatment with antibiotics, patient is waiting for SNF placement DC planning per case management 10/02/2020---03/15/2021 daily hospital course reviewed 03/16/2021; Awaiting placement. Patient is on PEG tube feeding. Saturating well on room air. Patient is mildly tachycardic. Pending placement. 03/17/2021; Awaiting placement. Patient is on PEG tube feeding. Saturating well on room air. Patient is mildly tachycardic. Pending placement. 03/18/2021; awaiting placement. 03/19/2021; awaiting placement. 03/20/2021; awaiting placement. 03/21/21; awaiting placement. 03/22/2021; Awaiting placement. Patient is on PEG tube feeding. Saturating well on room air. Patient is mildly tachycardic. Pending placement. 03/23/2021; multiple social issues, awaiting LTAC placement 03/24/2021; pending placement. Clinically no change, I discussed with patient's mother extensively, she had numerous questions answered all of them She requested a repeat CT head as she noticed significant change in her daughters level of consciousness. Will check CT head without contrast 03/25/2021; I discussed with patient's mother extensively yesterday 03/24/2021, she requested a repeat CT scan as she feels that patient is responding f/u CT head without contrast 03/24/2021; no acute abnormalities, pronounced diffuse cerebral atrophy. 03/26/2021; awaiting placement, multiple social issues, I called and discussed CT head findings with patient's mother Ms. Santiago She verbalized understanding. Disposition; pending placement 03/30/2021 I resumed service today; Clinically no change, awaiting placement, multiple social issues 03/31/2021; multiple social issues, awaiting placement 04/01/2021; clinically no change, social issues, awaiting placement 04/02/2021; patient response to some sound by moving her head, not purposeful Did not respond to communication, awaiting placement 04/03/2021; pending placement social issues, 04/04/2021; clinically no change, awaiting placement 04/05/2021; awaiting placement, clinically stable 04/06/2021; clinically no change, patient is stable Awaiting placement, multiple social issues 04/07/2021; awaiting placement social issues. 04/09/2021; patient saturates well on room air PEG tube/PEG feeds, hemodynamically and clinically stable Stable for discharge home with home health versus placement 04/10/21 Awaiting placement 04/11/21 Aawaiting placement 04/12/2021 Awaiting placement 04/13/2021; patient is more alert and awake, noncommunicative Spontaneous opening eyes, vital signs noted, awaiting placement Social issues 04/14/2021; clinically no change Awaiting placement 04/16/2021; patient is awaiting placement 04/17/2021; clinically no change, awaiting placement Social issues 04/18/2021; pending placement 04/19/2021; pending placement 04/20/2021; clinically no change, awaiting placement DC planning per case management 04/21/2021; placement per case management 04/22/2021; awaiting placement, clinically stable History Interval history: I have seen and examined the patient at the bedside Patient's chart and medications reviewed Clinically no change Anoxic encephalopathy Spontaneous opening of eyes Hospitalist Physical - Constitutional Vitals: Temp Pulse Resp BP Pulse Ox 98.8 F 98 H 18 109/66 96 04/22/21 16:27 04/22/21 16:27 04/22/21 16:27 04/22/21 16:27 04/22/21 16:27 General appearance: Present: no acute distress, well-nourished, obese, other - EENT Eyes: Present: PERRL, EOM intact - Neck Neck: Present: supple, normal ROM - Respiratory Respiratory effort: normal Respiratory: bilateral: diminished, negative: rales, rhonchi, wheezing - Cardiovascular Rhythm: regular Heart Sounds: Present: S1 & S2 - Extremities Extremities: no ischemia, No edema - Abdominal General gastrointestinal: soft, non-tender, non-distended, normal bowel sounds - Integumentary Integumentary: Present: clear, warm - Psychiatric Psychiatric: other (Noncommunicative) - Neurologic Neurologic: other (Anoxic encephalopathy) HEART Score - HEART Score Age: < 45 Risk factors: 1-2 risk factors - Critical Actions Critical Actions: >7 pts:50-65% risk of adverse cardiac event. Early invasive measures Results - Labs CBC & Chem 7: 03/16/21 04:42 04/16/21 08:37 Labs: Laboratory Last Values WBC 9.4 K/mm3 (4.5-11.0) 03/16/21 04:42 RBC 5.06 M/mm3 (3.65-5.03) H 03/16/21 04:42 Hgb 12.2 gm/dl (10.1-14.3) 03/16/21 04:42 Hgb Comment See scanned result 10/04/20 Unknown Hct 37.6 % (30.3-42.9) 03/16/21 04:42 MCV 74 fl (79-97) L 03/16/21 04:42 MCH 24 pg (28-32) L 03/16/21 04:42 MCHC 33 % (30-34) 03/16/21 04:42 RDW 15.8 % (13.2-15.2) H 03/16/21 04:42 Plt Count 311 K/mm3 (140-440) 03/16/21 04:42 Lymph % (Auto) 33.5 % (13.4-35.0) 03/16/21 04:42 [place] % (Auto) 8.1 % (0.0-7.3) H 03/16/21 04:42 Eos % (Auto) 1.7 % (0.0-4.3) 03/16/21 04:42 Baso % (Auto) 0.5 % (0.0-1.8) 03/16/21 04:42 Lymph # (Auto) 3.1 K/mm3 (1.2-5.4) 03/16/21 04:42 [place] # (Auto) 0.8 K/mm3 (0.0-0.8) 03/16/21 04:42 Eos # (Auto) 0.2 K/mm3 (0.0-0.4) 03/16/21 04:42 Baso # (Auto) 0.0 K/mm3 (0.0-0.1) 03/16/21 04:42 Add Manual Diff Complete 02/09/21 10:59 Total Counted 100 02/09/21 10:59 Seg Neutrophils % 56.2 % (40.0-70.0) 03/16/21 04:42 Seg Neuts % (Manual) 58.0 % (40.0-70.0) 02/09/21 10:59 Band Neutrophils % 2.0 % 10/15/20 05:50 Lymphocytes % (Manual) 29.0 % (13.4-35.0) 02/09/21 10:59 Reactive Lymphs % (Man) 1.0 % 10/02/20 12:18 Monocytes % (Manual) 13.0 % (0.0-7.3) H 02/09/21 10:59 Eosinophils % (Manual) 1.0 % (0.0-4.3) 10/29/20 07:56 Myelocytes % 2.0 % 10/02/20 13:05 Metamyelocytes % 1.0 % 10/14/20 04:00 Nucleated RBC % Not Reportable 02/09/21 10:59 Seg Neutrophils # 5.3 K/mm3 (1.8-7.7) 03/16/21 04:42 Seg Neutrophils # Man 3.7 K/mm3 (1.8-7.7) 02/09/21 10:59 Band Neutrophils # 0.0 K/mm3 02/09/21 10:59 Lymphocytes # (Manual) 1.8 K/mm3 (1.2-5.4) 02/09/21 10:59 Abs React Lymphs (Man) 0.0 K/mm3 02/09/21 10:59 Monocytes # (Manual) 0.8 K/mm3 (0.0-0.8) 02/09/21 10:59 Eosinophils # (Manual) 0.0 K/mm3 (0.0-0.4) 02/09/21 10:59 Basophils # (Manual) 0.0 K/mm3 (0.0-0.1) 02/09/21 10:59 Metamyelocytes # 0.0 K/mm3 02/09/21 10:59 Myelocytes # 0.0 K/mm3 02/09/21 10:59 Promyelocytes # 0.0 K/mm3 02/09/21 10:59 Blast Cells # 0.0 K/mm3 02/09/21 10:59 WBC Morphology Not Reportable 02/09/21 10:59 Hypersegmented Neuts Not Reportable 02/09/21 10:59 Hyposegmented Neuts Not Reportable 02/09/21 10:59 Hypogranular Neuts Not Reportable 02/09/21 10:59 Smudge Cells Not Reportable 02/09/21 10:59 Toxic Granulation Not Reportable 02/09/21 10:59 Toxic Vacuolation Not Reportable 02/09/21 10:59 Dohle Bodies Not Reportable 02/09/21 10:59 Pelger-Huet Anomaly Not Reportable 02/09/21 10:59 Ester Rods Not Reportable 02/09/21 10:59 Platelet Estimate Consistent w auto 02/09/21 10:59 Clumped Platelets Not Reportable 02/09/21 10:59 Plt Clumps, EDTA Not Reportable 02/09/21 10:59 Large Platelets Few 02/09/21 10:59 Giant Platelets Not Reportable 02/09/21 10:59 Platelet Satelliting Not Reportable 02/09/21 10:59 Plt Morphology Comment Not Reportable 02/09/21 10:59 RBC Morphology Not Reportable 02/09/21 10:59 Dimorphic RBCs Not Reportable 02/09/21 10:59 Polychromasia Not Reportable 02/09/21 10:59 Hypochromasia 1+ 02/09/21 10:59 Poikilocytosis Not Reportable 02/09/21 10:59 Anisocytosis Not Reportable 02/09/21 10:59 Microcytosis Not Reportable 02/09/21 10:59 Macrocytosis Not Reportable 02/09/21 10:59 Spherocytes Not Reportable 02/09/21 10:59 Pappenheimer Bodies Not Reportable 02/09/21 10:59 Sickle Cells Not Reportable 02/09/21 10:59 Target Cells Not Reportable 02/09/21 10:59 Tear Drop Cells Not Reportable 02/09/21 10:59 Ovalocytes Not Reportable 02/09/21 10:59 Stomatocytes Few 10/14/20 04:00 Helmet Cells Not Reportable 02/09/21 10:59 Burk-Davey Bodies Not Reportable 02/09/21 10:59 [place] Rings Not Reportable 02/09/21 10:59 [place] Cells Not Reportable 02/09/21 10:59 Bite Cells Not Reportable 02/09/21 10:59 Crenated Cell Not Reportable 02/09/21 10:59 Elliptocytes Not Reportable 02/09/21 10:59 Acanthocytes (Spur) Not Reportable 02/09/21 10:59 Rouleaux Not Reportable 02/09/21 10:59 Hemoglobin C Crystals Not Reportable 02/09/21 10:59 Schistocytes Not Reportable 02/09/21 10:59 Malaria parasites Not Reportable 02/09/21 10:59 Sickle Cell Solubility See scanned result 10/04/20 Unknown Hemoglobin A See scanned result 10/04/20 Unknown Hemoglobin A2 See scanned result 10/04/20 Unknown Hemoglobin A2 Prime See scanned result 10/04/20 Unknown Hemoglobin C See scanned result 10/04/20 Unknown Hemoglobin D See scanned result 10/04/20 Unknown Hemoglobin E See scanned result 10/04/20 Unknown Hgb F Diffential Stain See scanned result 10/04/20 Unknown Hemoglobin F Quant See scanned result 10/04/20 Unknown Hemoglobin G See scanned result 10/04/20 Unknown Hemoglobin S See scanned result 10/04/20 Unknown Hemoglobin [place] See scanned result 10/04/20 Unknown Hemoglobin [place] See scanned result 10/04/20 Unknown Hemoglobin Analilia See scanned result 10/04/20 Unknown Variant Hemoglobin See scanned result 10/04/20 Unknown Abnorm Hgb IEF Confirm See scanned result 10/04/20 Unknown Hemoglobin Interpret See scanned result 10/04/20 Unknown Hemoglobinopathy Note See scanned result 10/04/20 Unknown Sharad Bodies Not Reportable 02/09/21 10:59 Hem Pathologist Commnt No 02/09/21 10:59 PT 13.6 Sec. (12.2-14.9) 10/21/20 13:54 INR 1.06 (0.87-1.13) 10/21/20 13:54 APTT 31.6 Sec. (24.2-36.6) 10/03/20 00:40 Fibrinogen 336 mg/dl (211-480) 10/04/20 10:00 D-Dimer 1974.47 ng/mlDDU (0-234) H 11/11/20 13:50 ABG pH 7.459 pH Units (7.350-7.450) H 10/26/20 10:30 POC ABG pCO2 20.7 mmHg (32.0-48.0) L 10/13/20 07:18 ABG pCO2 32.4 mm Hg 10/26/20 10:30 POC ABG pO2 137.9 mmHg (83-108) H 10/13/20 07:18 ABG pO2 112.2 mm Hg (80.0-90.0) H 10/26/20 10:30 POC ABG HCO3 14.8 10/13/20 07:18 ABG HCO3 22.5 mmol/L (20.0-26.0) 10/26/20 10:30 ABG O2 Saturation 98.2 % (95.0-99.0) 10/26/20 10:30 ABG O2 Content 18.5 (0.0-44) 10/26/20 10:30 POC ABG Base Excess -6.9 10/13/20 07:18 ABG Base Excess -0.6 mmol/L (-2.0-3.0) 10/26/20 10:30 ABG Hemoglobin 13.5 gm/dl (12.0-16.0) 10/26/20 10:30 ABG Oxyhemoglobin 98.3 (94-98) H 10/13/20 07:18 ABG Carboxyhemoglobin 1.3 % (0.0-5.0) 10/26/20 10:30 ABG Methemoglobin 0.5 % (0.0-1.5) 10/26/20 10:30 ABG Sodium 135.9 mmol/L (136.0-145.0) L 10/13/20 07:18 ABG Potassium 3.7 mmol/L (3.40-4.50) 10/13/20 07:18 ABG Chloride 111.0 mmol/L (98-107) H 10/13/20 07:18 ABG Glucose 109 mg/dL (65-95) H 10/13/20 07:18 VBG pH 6.949 (7.320-7.420) L* 10/02/20 Unknown Oxyhemoglobin 96.5 % (95.0-99.0) 10/26/20 10:30 Carboxyhemoglobin 0.3 (0.5-1.5) L 10/13/20 07:18 FiO2 25 % 10/26/20 10:30 Sodium 140 mmol/L (137-145) 04/16/21 08:37 Potassium 5.0 mmol/L (3.6-5.0) 04/16/21 08:37 Chloride 101.6 mmol/L (98-107) 04/16/21 08:37 Carbon Dioxide 24 mmol/L (22-30) 04/16/21 08:37 Anion Gap 19 mmol/L 04/16/21 08:37 BUN 14 mg/dL (7-17) 04/16/21 08:37 Creatinine 0.5 mg/dL (0.6-1.2) L 04/16/21 08:37 Estimated GFR > 60 ml/min 04/16/21 08:37 BUN/Creatinine Ratio 28 % 04/16/21 08:37 Glucose 78 mg/dL (65-100) 04/16/21 08:37 POC Glucose 88 mg/dL (70-105) 04/22/21 07:26 Random Insulin 43.2 uIU/mL (<=19.6) H 11/02/20 19:19 Proinsulin See scanned result 11/02/20 19:19 C-Peptide 6.23 ng/mL (0.80-3.85) H 11/02/20 19:19 Lactic Acid 1.90 mmol/L (0.7-2.0) 10/04/20 22:00 Uric Acid 7.5 mg/dL (3.5-7.6) 10/02/20 13:05 Calcium 10.1 mg/dL (8.4-10.2) 04/16/21 08:37 Ionized Calcium 4.4 mg/dL (4.8-5.6) L 10/07/20 21:00 Phosphorus 4.60 mg/dL (2.5-4.5) H 11/13/20 10:05 Magnesium 2.10 mg/dL (1.7-2.3) 11/13/20 10:05 Total Bilirubin 0.40 mg/dL (0.1-1.2) 04/16/21 08:37 AST 45 units/L (5-40) H 04/16/21 08:37 ALT 39 units/L (7-56) 04/16/21 08:37 Alkaline Phosphatase 145 units/L (35-129) H 04/16/21 08:37 Lactate Dehydrogenase 769 units/L (91-180) H 10/02/20 13:05 C-Reactive Protein 0.70 mg/dL (0.00-1.30) 11/11/20 13:50 NT-Pro-B Natriuret Pep 2788 pg/mL (0-450) H 10/04/20 10:00 Total Protein 7.4 g/dL (6.3-8.2) 04/16/21 08:37 Albumin 4.3 g/dL (3.9-5) 04/16/21 08:37 Albumin/Globulin Ratio 1.4 % 04/16/21 08:37 Procalcitonin < 0.05 ng/mL (<0.15) 03/02/21 02:30 Arterial Blood Glucose 109 mg/dL (65-95) H 10/13/20 07:18 Arterial Blood Ionized Calcium 4.6 mg/dL (4.6-5.3) 10/13/20 07:18 Urine Color Yellow (Yellow) 01/25/21 09:51 Urine Turbidity Cloudy (Clear) 01/25/21 09:51 Urine pH 7.0 (5.0-7.0) 01/25/21 09:51 Ur Specific [place] 1.011 (1.003-1.030) 01/25/21 09:51 Urine Protein <15 mg/dl mg/dL (Negative) 01/25/21 09:51 Urine Glucose (UA) Neg mg/dL (Negative) 01/25/21 09:51 Urine Ketones Neg mg/dL (Negative) 01/25/21 09:51 Urine Blood Neg (Negative) 01/25/21 09:51 Urine Nitrite Neg (Negative) 01/25/21 09:51 Urine Bilirubin Neg (Negative) 01/25/21 09:51 Urine Urobilinogen < 2.0 mg/dL (<2.0) 01/25/21 09:51 Ur Leukocyte Esterase Neg (Negative) 01/25/21 09:51 Urine WBC (Auto) 6.0 /HPF (0.0-6.0) 01/25/21 09:51 Urine RBC (Auto) 3.0 /HPF (0.0-6.0) 01/25/21 09:51 U Epithel Cells (Auto) < 1.0 /HPF (0-13.0) 01/25/21 09:51 Urine Bacteria (Auto) 1+ /HPF (Negative) 01/18/21 08:47 Urine WBC Clumps 3+ /HPF 11/11/20 13:50 Calcium Oxalate Crystal Few 11/11/20 13:50 Urine Mucus Few /HPF 01/25/21 09:51 Urine Yeast (Budding) 2+ /HPF 01/25/21 09:51 Vancomycin Trough 12.6 ug/mL (5.0-20.0) 10/21/20 13:54 Random Vancomycin 10.7 ug/mL (0-40.0) 10/16/20 13:09 Phenytoin 5.7 ug/mL (10.0-20.0) L 10/13/20 07:00 C. difficile Tox (PCR) Positive (Negative) 10/16/20 10:22 Coronavirus (PCR) Negative (Negative) 10/08/20 14:15 Blood Type O POSITIVE 10/02/20 12:50 Antibody Screen Negative 10/02/20 12:50 Crossmatch See Detail 10/02/20 12:50 - Diagnostic Impressions Diagnostic Impressions: Echocardiogram 10/03/20 13:42 Transthoracic Echocardiogram Indication: S/P Cardiac Arrest R/O Cardiomyopathy BP: 133/71 Conclusions *Global left ventricular systolic function is normal. *The estimated ejection fraction is 60-65%. *There is trace of mitral regurgitation. *The right 0heart chambers are both slightly dilated. *There is mild tricuspid regurgitation. *There is mild-moderate pulmonary hypertension. *The right ventricular systolic pressure is calculated at 44 mmHg. *The study quality is technically difficult. Findings Procedure Info: The study quality is technically difficult. The study is technically limited due to patient body habitus. The study was technically limited due to the patient's inability to lay in the left lateral decubitus position. Left Ventricle: The left ventricular chamber size is normal. There is no left ventricular hypertrophy. Global left ventricular systolic function is normal. The estimated ejection fraction is 60-65%. Left Atrium: The left atrial chamber size is normal. Right Ventricle: The right ventricle is slightly dilated. Right Atrium: The right atrium is mildly dilated. Aortic Valve: The aortic valve leaflets are mildly thickened. There is no evidence of aortic regurgitation. There is no evidence of aortic stenosis. Mitral Valve: The mitral valve leaflets are mildly thickened. There is trace of mitral regurgitation. There is no evidence of mitral stenosis. Tricuspid Valve: There is mild tricuspid regurgitation. The right ventricular systolic pressure is calculated at 44 mmHg. There is evidence of mild pulmonary hypertension. Pulmonic Valve: There is trace pulmonic regurgitation. Pericardium: There is no pericardial effusion. Aorta: There is no dilatation of the ascending aorta. There is no dilatation of the aortic root. Venous: The inferior vena cava is dilated. Measurements Chambers 2D Name Value Normal Range IVSd (2D) 1 cm (0.6 - 1.1) LVPWd (2D) 1.01 cm (0.6 - 1.1) LVIDd (2D) 4.58 cm (3.7 - 5.6) LVIDs (2D) 3.17 cm (2 - 3.8) LV FS (2D) 30.93 % - EF Teichholz (2D) 58.66 % - Ao root diameter (2D) 2.94 cm (2 - 3.7) Volumes/Mass Name Value Normal Range LA ESV SP 4CH (A/L) 72.82 ml - LA ESV SP 2CH (A/L) 66.86 ml - LA ESV BP (A/L) 74.49 ml - LA ESV SP 4CH (MOD) 71.03 ml - LA ESV SP 2CH (MOD) 64.3 ml - LV EDV SP 4CH (MOD) 98.82 ml - LV ESV SP 4CH (MOD) 24.8 ml - EF SP 4CH (MOD) 74.9 % - LV EDV SP 2CH (MOD) 86.1 ml - LV ESV SP 2CH (MOD) 36.93 ml - EF SP 2CH (MOD) 57.11 % - LV EDV BP 94.4 ml - LV ESV BP 32.66 ml - BP EF (MOD) 65.4 % - Diastolic/Systolic Function Name Value Normal Range MV E-wave Vmax 1.04 m/sec - MV deceleration time 160.46 msec - MV A-wave Vmax 0.92 m/sec - MV E:A ratio 1.14 ratio - Aortic Valve Name Value Normal Range AV Vmax 2.12 m/sec - AV VTI 22.37 cm - AV peak gradient 17.95 mmHg - AV mean gradient 7.29 mmHg - LVOT diameter 2.01 cm - LVOT Vmax 1.8 m/sec - LVOT VTI 27.17 cm - LVOT peak gradient 12.91 mmHg - LVOT mean gradient 6.83 mmHg - SV LVOT 86.42 ml - ANITA (continuity Vmax) 2.7 cm2 - ANITA (continuity VTI) 3.86 cm2 - Ascending Ao 3.18 cm - Tricuspid Valve Name Value Normal Range TV E-wave Vmax 0.88 m/sec - TR Vmax 3.01 m/sec - TR peak gradient 36.27 mmHg - RAP 8 mmHg - RVSP 44 mmHg - IVC diameter 2.65 cm (1.2 - 2.3) Pulmonic Valve/Qp:Qs Name Value Normal Range PV Vmax 1.22 m/sec - PV peak gradient 5.91 mmHg - RVOT Vmax 0.87 m/sec - RVOT VTI 13.32 cm - RVOT peak gradient 3 mmHg - PV acceleration time 110.37 msec - [place]/IV: Voiding Method Incontinent IV Catheter Type [Right Foot] INT / Saline Lock IV Catheter Type [Left Forearm Peripheral IV ] IV Catheter Type [Left Wrist] INT / Saline Lock IV Catheter Type [Right Hand] INT / Saline Lock IV Catheter Type [Right INT / Saline Lock Antecubital] IV Catheter Type [Right Upper Mid-line arm] IV Catheter Type [Left Triple Lumen Cath Internal Jugular] IV Catheter Type [Left Hand] Peripheral IV IV Catheter Type [Left Peripheral IV Antecubital] Active Medications - Current Medications Current Medications: Generic Name Dose Route Start Last Admin Trade Name Freq PRN Reason Stop Dose Admin Acetaminophen 650 mg 10/05/20 16:34 04/15/21 15:02 Acetaminophen 325 Mg/10.15 Ml Oral Liqd Unit Dose FEEDTUBE 650 mg Q6H PRN Administration Non Cardiac Pain or Temp>100.5 Albuterol 2.5 mg 11/05/20 13:03 11/06/20 13:04 Albuterol 2.5 Mg/3 Ml Nebu IH 2.5 mg Q4HRT PRN Administration Shortness Of Breath Alprazolam 0.25 mg 01/20/21 13:33 04/21/21 22:36 Alprazolam 0.25 Mg Tab PO 0.25 mg Q8H PRN Administration Anxiety Lipase/Protease/Amylase 1 each 10/05/20 11:09 Lipase 10,500/Protease 25,000/Amylase 43,750 (Units) Dr Barakat FEEDTUBE PRN PRN For Clogged Feeding Tube Enoxaparin Sodium 40 mg 10/22/20 10:00 04/22/21 13:28 Enoxaparin 40 Mg/0.4 Ml Inj SUB-Q 40 mg DAILY ERINN Administration Protocol Famotidine 20 mg 10/07/20 10:00 04/22/21 13:28 Famotidine 20 Mg Tab PO 20 mg BID ERINN Administration Hydrophilic Ointment 1 applic 01/03/21 13:00 02/16/21 09:56 Lip Therapy Vaseline TP 1 applic DIRECT PRN Administration Dry Lips Metoprolol Tartrate 50 mg 02/02/21 16:01 04/22/21 13:28 Metoprolol Tartrate 25 Mg Tab PO 50 mg BID ERINN Administration Morphine Sulfate 2 mg 01/20/21 13:33 Morphine 2 Mg/1 Ml Inj IV Q4H PRN Pain, Moderate (4-6) Ondansetron HCl 4 mg 02/10/21 11:38 02/10/21 13:18 Ondansetron 4 Mg/2 Ml Inj IV 4 mg Q4H PRN Administration Nausea And Vomiting Simple Syrup 15 ml 10/05/20 11:09 Simple Syrup 15 Ml FEEDTUBE PRN PRN Hypoglycemia Simple Syrup 30 ml 10/05/20 11:09 03/23/21 06:11 Simple Syrup 15 Ml FEEDTUBE 30 ml PRN PRN Administration Hypoglycemia Sodium Bicarbonate 325 mg 10/05/20 11:09 12/16/20 08:19 Sodium Bicarbonate 325 Mg Tab FEEDTUBE 325 mg PRN PRN Administration For Clogged Feeding Tube Nutrition/Malnutrition Assess - Dietary Evaluation Nutrition/Malnutrition Findings: Nutrition Notes Start: 10/04/20 11:13 Freq: Status: Active Protocol: Document 04/16/21 12:14 (Rec: 04/16/21 12:16 [id number]) Nutrition Notes Initial or Follow up Reassessment Other Pertinent Diagnosis s/p cardiac arrest x 2, anoxic brain injury Current Diet TF - Promote at 65ml/hr Labs/Tests Cr 0.5 AST 45 Pertinent Medications Reviewed Height 5 ft 8 in Weight 87 kg [place] Body Weight (kg) 63.63 BMI 29.1 Weight Status Overweight Subjective/Other Information FU for TF tolerance and labs. Pt tolerating TF at goal rate. Percent of energy/protein needs met: 100%/100% Burn Absent Trauma Absent GI Symptoms None Difficulty In Swallowing,Chewing Current % PO Negligible Minimum of two criteria No physical signs of malnutrition #1 Nutrition Diagnosis Inadequate oral intake Diagnosis Progress(for reassessment Continues documentation) Is patient on ventilator? No Is Patient Ambulatory and/or Out of Bed No REE-([facility]-confined to bed) 1955.228 Calculation Used for Recommendations [facility] Additional Notes Pro needs 0.8-1g/k-89g/ day Fluid needs 1ml/kcal Nutrition Intervention Change Diet Order: Continue Nutrition Support: Continue Promote at 65 mL/hr Flush 100 ml q4h Kcal 1,560 Protein (gm) 98 Fluid (mL) 1,309 Goal #1 TF tolerance Goal #2 TF to meet at least 75% estimated energy and protein needs. Follow-Up By: 04/23/21 Additional Comments FU for stable TF
[2021-04-22] MEDS: ALPRAZolam 0.25 MG TAB PO PRN (23:40)
[2021-04-23] MEDS: FAMOTIDINE 20 MG TAB PO SCH (10:14)
[2021-04-23] MEDS: ENOXAPARIN 40 MG/0.4 ML INJ SUB-Q SCH (10:14)
[2021-04-23] MEDS: METOPROLOL TARTRATE 25 MG TAB PO SCH (10:14)
[2021-04-23 10:15] VITALS: BP 122/60
--- NOTE | 2021-04-23 12:25 | Discharge Summary ---
Providers - Providers Date of Admission: 10/02/20 12:00 Date of discharge: 04/23/21 Attending physician: VOLODYMYR HENDRICKS 10/03/20 01:26 Consult to Physician [CONS] Routine Comment: spoke with dr. nanci carrera Consulting Provider: BRIGETTE BOOKER Physician Instructions: Reason For Exam: DIC 10/03/20 13:21 Consult to Physician [CONS] Urgent Comment: seen by dr. giovanna carrera Consulting Provider: OLIVA MCINTOSH Physician Instructions: Reason For Exam: Lactic acidosis 10/04/20 06:56 Consult to Dietitian/Nutrition [CONS] Routine Physician Instructions: Reason For Exam: Reason for Consult: Evaluate nutritional intake 10/05/20 08:35 Consult to Dietitian/Nutrition [CONS] Routine Physician Instructions: Reason For Exam: Reason for Consult: Write/Manage Tube Feeding 10/05/20 10:32 Consult to Physician [CONS] Routine Comment: Consulting Provider: TOM BARKSDALE Physician Instructions: Reason For Exam: sepsis 10/12/20 07:44 Consult to Physician [CONS] Routine Comment: Consulting Provider: [facility] Physician Instructions: Reason For Exam: intubated unresponsive 10/12/20 11:06 Consult to Physician [CONS] Routine Comment: Consulting Provider: KHOI ARRIETA Physician Instructions: Reason For Exam: Unresponsive, post seizure and arrest 10 days ago 10/12/20 11:10 Consult to Physician [CONS] Urgent Comment: Consulting Provider: KHOI ARRIETA Physician Instructions: Reason For Exam: Unresponsive, s/p seizure and arrest 10 days ago 10/20/20 09:18 Consult to Physician [CONS] Routine Comment: Consulting Provider: BRIGETTE BOOKER Physician Instructions: Reason For Exam: DVT in setting of DIC 10/21/20 09:52 Consult to Dietitian/Nutrition [CONS] Routine Physician Instructions: Assess nutrtn needs, initiate, modify, manage TF Reason For Exam: Reason for Consult: Write/Manage Tube Feeding Reason for Consult: Write/Manage Tube Feeding 10/23/20 11:09 Occupational Therapy Evaluate and Treat [CONS] Routine Comment: Reason For Exam: Passive Range Of Motion and Therapy. Physical Therapy Evaluation and Treat [CONS] Routine Comment: Reason For Exam: Debility 10/31/20 11:42 PICC Line Insertion [Consult to PICC Line RN] [CONS] Urgent Reason For Exam: IV access Type Line:: Midline 11/10/20 01:19 Consult to Wound/ET Nurse [CONS] Routine Reason For Exam: re-eval- flare-up is worse to perineum. 11/10/20 10:52 Consult to Wound/ET Nurse [CONS] Routine Reason For Exam: wound eval 01/15/21 09:34 Consult to Wound/ET Nurse [CONS] Routine Reason For Exam: small open wounds to inner thigh,perineal area. 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 need brace for hands Primary care physician: KRISTEN ESCOBEDO Hospitalization Reason for admission: Seizures//eclampsia Condition: Fair Pertinent studies: Multiple chest x-rays Upper extremity venous Doppler CT abdomen and pelvis Tracheostomy procedure 10/21/2020 MRI brain 10/14/2020 Upper and lower extremity venous Doppler EEG 10/08/2020 CT head without contrast Procedures: Tracheostomy PEG tube placement Hospital course: 30 year old -[place] female CHE 10/25/20 at 36w5d who presents with seizures in triage on 10/02/20. Pt was not able to provide history but per pt's , she presented to the hospital to return a 24 hour urine specimen for analysis. She then suddenly reported that she did not feel good. She was taken to labor and delivery and shortly after arrival, she began seizing. During this time, a code met was called because the patient became hypoxic. She was then noted to be without a pulse. Chest compressions were started immediately, and the patient was emergently taken to the operating room for delivery of the fetus. Off note, This patient has had care at [facility] with comanagement by [facility] since 11 wks complicated by ADHD, morbid obesity, generalized anxiety disorder, panic attacks, chronic narcotic use, fibromyalgia, GERD, Irritable Bowel Syndrome, Migraines, h/o endometrial ablation and ovarian vein embolization, genital herpes, insomnia, LGA fetus, nausea and vomiting, polyhydramnios, quad screen positive for Down's Syndrome, and previous x 3. She was GBS negative. on 10/02/2020 patient underwent repeat DIC uterine atony hemorrhage eclampsia and morbid obesity Patient underwent supracervical abdominal hysterectomy Subsequently patient had cardiac arrest on 12/08/2019 status post CPR and ACLS protocol, with acute hypoxic brain injury acute kidney injury, severe shock requiring multiple pressors., Patient also has had herpes flareup. Patient was unable to wean had tracheostomy initially on T-piece Letter tracheostomy was closed Currently patient unresponsive, encephalopathic, spontaneous opening eyes, saturating well on room air Patient has PEG tube, PEG tube feeding per protocol Case management has evaluated the patient, set up SNF placement Today patient is hemodynamically and clinically stable with guarded prognosis Patient is being transferred to longterm facility for further management; Discharge diagnosis: --Patient had cardiac arrest 10/07/2020 Status post CPR per ACLS protocol --Acute anoxic brain injury; Neurology extensively evaluated Continue supportive care --Acute hypoxic respiratory failure; Saturating room air, supportive care COVID-19 negative C. difficile positive; completed oral vancomycin Patient on contact isolation --Sepsis; completed treatment Continue to monitor off antibiotics ID following --COVID-19 test negative; 10/08/2020 --C. difficile colitis test; positive; 10/16/2020 --Acute metabolic encephalopathy --Acute kidney injury; vasomotor nephropathy Resolved, renal function within normal limits, closely monitor --Shock; requiring pressors, monitor off pressors Blood pressures reasonable level --DIC; sepsis, septic shock, resolved --History of preeclampsia; / hemorrhage Status post hysterectomy --History of C. difficile colitis; completed oral vancomycin --DVT/SVT and right upper extremity Patient is hemodynamically clinically stable with guarded prognosis Stable at discharge Disposition: [id number]/[id number] Final Discharge Diagnosis (Prints w/discharge instructions): Cardiac arrest on 10/07/2020. Anoxic brain injury. Acute hypoxic respiratory failure. COVID-19 negative. History of C. difficile colitis resolved. Sepsis completely treated. Acute metabolic encephalopathy. Acute kidney injury resolved. Shock improved. DIC resolved. History of preeclampsia/ history of hemorrhage. Resolved. History of hysterectomy. History of DVT SVT right upper extremity Time spent for discharge: 35 min Core Measure Documentation - Palliative Care Palliative Care/ Comfort Measures: Not Applicable - Core Measures Any of the following diagnoses?: none Exam - Constitutional Vitals: Temp Pulse Resp BP Pulse Ox 98.8 F 110 H 18 122/60 98 04/23/21 04:25 04/23/21 10:14 04/23/21 10:00 04/23/21 10:14 04/23/21 10:00 General appearance: Present: no acute distress, well-nourished, other (Noncommunicative) - EENT Eyes: Present: PERRL, EOM intact - Neck Neck: Present: supple - Respiratory Respiratory: bilateral: diminished, rhonchi, negative: rales, wheezing - Cardiovascular Rhythm: regular Heart Sounds: Present: S1 & S2 - Extremities Extremities: no ischemia, No edema - Abdominal General gastrointestinal: Present: soft, non-tender, non-distended, normal bowel sounds, other (PEG tube in place) - Integumentary Integumentary: Present: clear, warm - Musculoskeletal Musculoskeletal: generalized weakness, other (Noncommunicative) - Psychiatric Psychiatric: other (Noncommunicative and vegetative) Plan Activity: advance as tolerated, fall precautions Diet: other (Tube feeding per protocol) Additional Instructions: Fall precautions. PEG tube care. Tube feeds per protocol. She has worsening symptoms contact MD or go to emergency room Follow up with: KRISTEN ESCOBEDO MD [Primary Care Provider] - 7 Days EZ ARELLANO MD [Staff Physician] - 7 Days Prescriptions: ALPRAZolam [Xanax TAB] 0.25 mg PO Q8H PRN #30 tablet PRN Reason: Anxiety
== END 2021-04-23 17:30 | DRG 3 ==
LOC: TRG 11:33 → APU 11:34 → TRG 12:00 → CC1 12:41 → APU 13:24 → CC1 16:02 → IMCU 10-29 18:19 → 3A 12-24 17:44
PROVIDERS: ADMIT Obstetrics & Gynecology; ATTEND Internal Medicine
PROC: 10D00Z1 Extraction of Products of Conception, Low, Open Approach (ICD-10-PCS; principal; 2020-10-02)
PROC: 0UT94ZL Resection of Uterus, Supracervical, Percutaneous Endoscopic Approach (ICD-10-PCS; 2020-10-02)
PROC: 5A1955Z Respiratory Ventilation, Greater than 96 Consecutive Hours (ICD-10-PCS; 2020-10-02)
PROC: 30233K1 Transfusion of Nonautologous Frozen Plasma into Peripheral Vein, Percutaneous Approach (ICD-10-PCS; 2020-10-02)
PROC: 30233N1 Transfusion of Nonautologous Red Blood Cells into Peripheral Vein, Percutaneous Approach (ICD-10-PCS; 2020-10-02)
PROC: 30233R1 Transfusion of Nonautologous Platelets into Peripheral Vein, Percutaneous Approach (ICD-10-PCS; 2020-10-02)
PROC: 30233M1 Transfusion of Nonautologous Plasma Cryoprecipitate into Peripheral Vein, Percutaneous Approach (ICD-10-PCS; 2020-10-02)
PROC: 0BH17EZ Insertion of Endotracheal Airway into Trachea, Via Natural or Artificial Opening (ICD-10-PCS; 2020-10-07)
PROC: 5A12012 Performance of Cardiac Output, Single, Manual (ICD-10-PCS; 2020-10-07)
PROC: 02HV33Z Insertion of Infusion Device into Superior Vena Cava, Percutaneous Approach (ICD-10-PCS; 2020-10-09)
PROC: B548ZZA Ultrasonography of Superior Vena Cava, Guidance (ICD-10-PCS; 2020-10-09)
PROC: 4A033R1 Measurement of Arterial Saturation, Peripheral, Percutaneous Approach (ICD-10-PCS; 2020-10-10)
PROC: 0B110F4 Bypass Trachea to Cutaneous with Tracheostomy Device, Open Approach (ICD-10-PCS; 2020-10-21)
PROC: 0DH63UZ Insertion of Feeding Device into Stomach, Percutaneous Approach (ICD-10-PCS; 2020-10-21)
PROC: 5A09357 Assistance with Respiratory Ventilation, Less than 24 Consecutive Hours, Continuous Positive Airway Pressure (ICD-10-PCS; 2020-10-24)
PROC: 05HB33Z Insertion of Infusion Device into Right Basilic Vein, Percutaneous Approach (ICD-10-PCS; 2020-10-31)
DX: O34.211 Maternal care for low transverse scar from previous cesarean delivery (principal); J96.01 Acute respiratory failure with hypoxia; R57.1 Hypovolemic shock; I46.9 Cardiac arrest, cause unspecified; N17.0 Acute kidney failure with tubular necrosis; J18.9 Pneumonia, unspecified organism; R65.21 Severe sepsis with septic shock; G93.41 Metabolic encephalopathy; D65 Disseminated intravascular coagulation [defibrination syndrome]; O86.04 Sepsis following an obstetrical procedure; O87.1 Deep phlebothrombosis in the puerperium; E87.2 Acidosis; D62 Acute posthemorrhagic anemia; O72.1 Other immediate postpartum hemorrhage; G93.1 Anoxic brain damage, not elsewhere classified; A04.72 Enterocolitis due to Clostridium difficile, not specified as recurrent; O99.13 Other diseases of the blood and blood-forming organs and certain disorders involving the immune mechanism complicating the puerperium; O99.354 Diseases of the nervous system complicating childbirth; Z99.11 Dependence on respirator [ventilator] status; E87.0 Hyperosmolality and hypernatremia; O86.20 Urinary tract infection following delivery, unspecified; I82.A11 Acute embolism and thrombosis of right axillary vein; I82.621 Acute embolism and thrombosis of deep veins of right upper extremity; I82.611 Acute embolism and thrombosis of superficial veins of right upper extremity; Z20.822 Contact with and (suspected) exposure to COVID-19; E66.01 Morbid (severe) obesity due to excess calories; O99.214 Obesity complicating childbirth; O99.62 Diseases of the digestive system complicating childbirth; O89 Complications of anesthesia during the puerperium; F90.9 Attention-deficit hyperactivity disorder, unspecified type; M79.7 Fibromyalgia; F41.1 Generalized anxiety disorder; G43.909 Migraine, unspecified, not intractable, without status migrainosus; O40.3XX0 Polyhydramnios, third trimester, not applicable or unspecified; G40.909 Epilepsy, unspecified, not intractable, without status epilepticus; O76 Abnormality in fetal heart rate and rhythm complicating labor and delivery; Z3A.36 36 weeks gestation of pregnancy; Z37.0 Single live birth; O14.25 HELLP syndrome, complicating the puerperium; E87.6 Hypokalemia; E83.51 Hypocalcemia; O99.285 Endocrine, nutritional and metabolic diseases complicating the puerperium; E16.1 Other hypoglycemia; K21.9 Gastro-esophageal reflux disease without esophagitis; B96.5 Pseudomonas (aeruginosa) (mallei) (pseudomallei) as the cause of diseases classified elsewhere
CPT/HCPCS: 31500; 36415; 36600; 70450; 70551; 71045; 72170; 74018; 74177; 80048; 80053; 80185; 80202; 81001; 82140; 82330; 82565; 82803; 82805; 82962; 83525; 83615; 83735; 83880; 84100; 84132; 84145; 84206; 84450; 84460; 84550; 84681; 85007; 85014; 85018; 85025; 85027; 85049; 85379; 85384; 85610; 85730; 86140; 86850; 86900; 86901; 86920; 87040; 87070; 87076; 87086; 87186; 87205; 87493; 88307; 92950; 93005; 93306; 93970; 94003; 94640; 94760; 95819; G0378; J0133; J0171; J0330; J0360; J0610; J0690; J0692; J0696; J1170; J1650; J1720; J1815; J1940; J1956; J2060; J2185; J2250; J2370; J2405; J2590; J2704; J2930; J3010; J3370; J3475; J3480; J3490; J7030; J7040; J7050; J7070; J7120; P9016; P9017; P9035; P9047; Q2009; Q9967; U0003